=== PATIENT | male | born 1955 | race Caucasian/White ===

== ENCOUNTER 2023-09-09 12:05 | Outpatient (CLI) | payer MEDICARE, SELFPAY ==
--- NOTE | 2023-09-09 12:00 | RT.EKG_ITS ---
APPROVED REPORT Exam: Resting ECG Reason for Exam: CAD Patient Location: O HR:62 bpm ECG Measurements Heart Rate 62 AXIS MO 157 P 40 QRSd 100 QRS 9 QT 386 T 260 QTc 392 Conclusion Atrial-sensed ventricular-paced complexes...other complexes also detected No further analysis attempted due to paced rhythm I have reviewed and interpreted ECG and agree with software generated interpretation.
== END 2023-09-09 12:06 | disposition home or self-care (01) ==
LOC: DI.CARD 12:05
PROVIDERS: PCP Family Medicine; Visit Provider Internal Medicine Interventional Cardiology
DX: I25.10 Atherosclerotic heart disease of native coronary artery without angina pectoris (principal); Z95.0 Presence of cardiac pacemaker
CPT/HCPCS: 93010

== ENCOUNTER → 2023-09-09 13:51 | Outpatient (BNVA) | payer MEDICARE, SELFPAY | PROVIDERS: PCP Family Medicine; Referring Provider Family Medicine; Visit Provider Internal Medicine Interventional Cardiology | DX: I50.1 Left ventricular failure, unspecified (principal); I10 Essential (primary) hypertension; Z95.810 Presence of automatic (implantable) cardiac defibrillator; I25.10 Atherosclerotic heart disease of native coronary artery without angina pectoris | CPT/HCPCS: 93005; 99202 ==

== ENCOUNTER 2023-10-31 14:38 | Outpatient (REF) | payer MEDICARE, SELFPAY ==
--- NOTE | 2023-10-31 14:10 | SKI_PTH ---
PATIENT: Arturo Mehta LOC: JO U#:[id number] AGE/SX: 68/M ROOM: RE10/31/[address]: HENOK Alejandre : 1955 BED: DIS: 10/31/2023 SPEC #: [id number] RECD: 10/31/23 18:36 STATUS: CRISELDA REQ #: [id number] FRANKO: 10/31/23 14:[address]: Yousif Carlin DEPT: Surgical Specimen RECD BY: Nely Stephenson ENTERED: 10/31/23 18:37 SP TYPE: ADELE HUSTON DR: Mauro Berumen Tissues: 1 - SKIN BIOPSY(SHAVE/PUNCH) Procedures: SKIN LEVEL 4 Comments: [id number]
== END 2023-10-31 14:39 | disposition home or self-care (01) ==
LOC: LBN 14:38
PROVIDERS: PCP Family Medicine; Visit Provider Physician Assistant
DX: D22.9 Melanocytic nevi, unspecified (principal)
CPT/HCPCS: 88305

== ENCOUNTER 2024-02-26 21:59 | Outpatient (REF) | payer MEDICARE, SELFPAY ==
[2024-02-26 22:58] LABS: COMMENT (LAB VIEW ONLY) 166.13 mg/dL; Microalb ug/mg Crea 15.3 ug/mg Cr
== END 2024-02-26 22:00 | disposition home or self-care (01) ==
LOC: NCHCN 21:59
PROVIDERS: PCP Family Medicine; Visit Provider Family Medicine
DX: E11.9 Type 2 diabetes mellitus without complications (principal)
CPT/HCPCS: 82043; 82570

== ENCOUNTER → 2024-03-08 13:48 | Outpatient (BNVA) | payer MEDICARE, SELFPAY | PROVIDERS: PCP Family Medicine; Referring Provider Family Medicine; Visit Provider Internal Medicine Cardiovascular Disease | DX: Z95.810 Presence of automatic (implantable) cardiac defibrillator (principal); I25.10 Atherosclerotic heart disease of native coronary artery without angina pectoris | CPT/HCPCS: 99213 ==

== ENCOUNTER → 2024-03-24 09:53 | Outpatient (BNVA) | payer MEDICARE, SELFPAY | PROVIDERS: PCP Family Medicine; Referring Provider Family Medicine; Visit Provider Student in an Organized Health Care Education/Training Program | DX: Z95.810 Presence of automatic (implantable) cardiac defibrillator (principal) | CPT/HCPCS: 93284 ==

== ENCOUNTER → 2024-05-20 10:41 | Outpatient (BNVA) | payer MEDICARE, SELFPAY | PROVIDERS: PCP Family Medicine; Referring Provider Family Medicine; Visit Provider Podiatrist | DX: L60.3 Nail dystrophy (principal); B35.1 Tinea unguium; E11.43 Type 2 diabetes mellitus with diabetic autonomic (poly)neuropathy; E11.51 Type 2 diabetes mellitus with diabetic peripheral angiopathy without gangrene; L84 Corns and callosities | CPT/HCPCS: 11056; 11721; 99214 ==

== ENCOUNTER → 2024-06-02 09:50 | Outpatient (BNVA) | payer MEDICARE, SELFPAY | PROVIDERS: PCP Family Medicine; Referring Provider Family Medicine; Visit Provider Physical Therapy Assistant | DX: I73.9 Peripheral vascular disease, unspecified (principal); E11.51 Type 2 diabetes mellitus with diabetic peripheral angiopathy without gangrene | CPT/HCPCS: 93922 ==

== ENCOUNTER 2024-06-02 21:19 | Emergency (ER) | payer MEDICARE, SELFPAY ==
[2024-06-02] VITALS (10 sets, daily range): BP systolic 113–132; BP diastolic 47–73; PULSE 73–86; RESP 9–20; TEMP 36.7; O2SAT 94–96
--- NOTE | 2024-06-02 21:19 | RT.EKG_ITS ---
APPROVED REPORT Exam: Resting ECG Reason for Exam: chest pain Patient Location: E HR:80 bpm ECG Measurements Heart Rate 80 AXIS AR 157 P 60 QRSd 110 QRS 4 QT 365 T -82 QTc 422 Conclusion Atrial-sensed ventricular-paced rhythm...ventricular pacing tracks p-waves Atrial sensed ventricular paced rhythm at a rate of 80. Interventricular conduction delay. AR and Q Tc within normal limits. Concerning inferior ST segment depressions meeting modified Blake criteria for ischemia. New compared to prior dated earlier this year.
--- OUTSIDE RECORDS SUMMARY | 2024-06-02 21:29 | XMS_ITS | Encounter Summary ---
Author Organization [facility] Address [address] [place] [address] Care Team Providers Care Carbon Cleaner Name Role Phone Jesu Guerra [facility] Primary Care Provider [phone] Encounter Details Date Type Department Care Team (Late st Contact Info) Description 10/31/2023 Lab Requisition [facility] Pathology & Laboratory Medicine - [facility] [address] [place] [address] Yousif Carlin PA [address] [place] [address] [address] [place] [address] Melanocytic nevi, unspecified Social History Tobacco Use Types Packs/Day Years Used Date Smoking Tobacco: Never Assessed Sex and Gender Information Value Date Recorded Sex Assigned at Not on file Gender Identity Not on file Sexual Orientation Not on file documented as of this encounter Plan of Treatment Not on file documented as of this encounter Procedures Procedure Name Priority Date/Time Associated Diagnosis Comments SURGICAL PATHOLOGY Today 10/31/2023 14 :10 EDT Melanocytic nevi, unspecified documented in this encounter Results * SURGICAL PATHOLOGY (10/31/2023 14:10 EDT) Note to Patient The following pathology results have been interpreted by your pathologist and may be available to you before your health provider has had the opportunity to review them. Please allow time for your provider to receive these results and explore management options, if applicable. 11/04/2023 9:43 EDT [facility] Final Diagnosis A. SKIN OF CHEEK, LEFT, SHAVE BIOPSY: - Seborrheic keratosis, pigmented. 11/04/2023 9:43 EDT [facility] Attestation By the signature below, the attending physician certifies that they have 1) personally conducted a gross and/or microscopic examination of the described specimen(s), and/or personally interpreted the results of laboratory testing of the described specimen(s), and 2) personally rendered or confirmed the above diagnosis. 11/04/2023 9:43 [facility] at 0943 Microscopic Description The stratum corneum consists of a normal thin layer of basketweave orthokeratin. The epidermis is hyperplastic with elongate, thin, anastomosing rete ridges. Some of the rete are club shaped. The keratinocytes have abundant melanin pigment. The melanocytes are generally normal in number and distribution. There is prominent solar elastosis in the dermis and patchy lichenoid inflammation. 11/04/2023 9:43 T [facility] Clinical History Atypical nevus, history melanoma; clinical diagnosis code: D22.9 11/04/2023 9:43 EDT [facility] Gross Description A. Received in formalin labelled with proper patient identification (initials K, K) and L cheek is a 1.3 x 1.0 x 0.1 cm irregular shave of mottled rodriguez white to dark brown skin. The margin is inked. The specimen is trisected and entirely submitted in A1. HENOK GOLDEN(ASCP) 11/03/2023 9:00 11/04/2023 9:43 EDT [facility] Performing Lab [facility] 11/04/2023 9:43 T [facility] Scanned Images 11/04/2023 9:43 T [facility] Tissue SPECIMEN FROM SKIN / Unknown 10/31/2023 14:10 EDT 10/31/2023 23:24 EDT Yousif WHITING PATHOLOGY ORDERABL ES [facility] [address] [place] [address] documented in this encounter Visit Diagnoses Diagnosis Melanocytic nevi, unspecified documented in this encounter Care Teams Carbon Cleaner Relationship Specialty Start Date End Date Jesu Guerra, DNP [address] [place] [address] PCP - General Family Medicine - Primary Care 10/03/23 documented as of this encounter
--- OUTSIDE RECORDS SUMMARY | 2024-06-02 21:29 | XMS_ITS | Referral Summary ---
Author Organization [facility] Address [address] [place] [address] Care Team Providers Care Rim Fire Priming Operator Name Role Phone Jesu Guerra [facility] Primary Care Provider [phone] Social History Tobacco Use Types Packs/Day Years Used Date Smoking Tobacco: Never Assessed Sex and Gender Information Value Date Recorded Sex Assigned at Not on file Gender Identity Not on file Sexual Orientation Not on file Plan of Treatment Not on file Care Teams Rim Fire Priming Operator Relationship Specialty Start Date End Date Jesu Guerra, [facility] [address] [place] [address] [place] [id number] PCP - General Family Medicine - Primary Care 10/03/23
--- OUTSIDE RECORDS SUMMARY | 2024-06-02 21:29 | XMS_ITS | Clinical Summary ---
Author Organization [facility] Address [address] [place] [address] Care Team Providers Care Postulant Name Role Phone Jesu Guerra [facility] Primary Care Provider [phone] Social History Tobacco Use Types Packs/Day Years Used Date Smoking Tobacco: Never Assessed Sex and Gender Information Value Date Recorded Sex Assigned at Not on file Gender Identity Not on file Sexual Orientation Not on file Plan of Treatment Health Maintenance Due Date Last Done Comments Hepatitis C Screen 1955 RSV Immunization ( o r 60+ Years) (1 - 1-dose 60+ series) 2017 Fall Risk Screening 2022 COVID-19 Vaccine ( season) 2023 Care Teams Postulant Relationship Specialty Start Date End Date Jesu Guerra, JOHANA [facility] [place] [address] PCP - General Family Medicine - Primary Care 10/03/23
--- NOTE | 2024-06-02 21:30 | DI.RAD_ITS ---
Exam(s) XR PORTABLE CHEST AP EXAM: XR PORTABLE CHEST AP CLINICAL HISTORY: chest pain TECHNIQUE: 2D digital imaging was performed. COMPARISON: No exams were available for comparison FINDINGS: LUNGS: Clear. No pleural abnormality seen. HEART: Normal size. Pacemaker. AORTA: Normal diameter. BONES: Unremarkable for age. Soft tissues: Unremarkable. IMPRESSION: No acute findings. DATA REPOSITORY: RADIATION DOSE DELIVERED:
[2024-06-02 21:39] LABS: Abs Immature Grans 0.06 10^3/uL (0.0-0.06); Absolute Basophil Count 0.11 10^3/uL (0.0-0.2); Absolute Eosinophil Count 0.23 10^3/uL (0.0-0.7); Absolute Lymphocyte Count 2.74 10^3/uL (1.2-3.4); Absolute Neutrophil Count 5.97 10^3/uL (1.2-6.7); Basophils % 1.1 %; Eosinophils % 2.3 %; HGB 15.2 g/dL (13.5-17.5); Immature Grans % 0.6 %; Lymphocytes % 27.6 %; MCH 29.6 pg (27.0-33.0); MCHC 31.7 % (32.0-36.0); MCV 94 fL (80-95); MPV 9.3 fL (8.0-11.0); Monocytes % 8.1 %; Neutrophils % 60.3 %; Platelet Count 221 10^3/uL (130-400); RBC 5.13 10^6/uL (4.36-5.78); RDW-SD 48.9 fL; WBC 9.91 10^3/uL (4.4-10.8)
[2024-06-02] MEDS: MORPHine 10 MG/ML VIAL 4 MG IVP (21:48)
[2024-06-02] MEDS: Heparin in 0.45% NaCl 25,000 UNIT/250 ML BAG 10 UNIT IVINF (21:49)
[2024-06-02] MEDS: Clopidogrel 300 MG TAB PO (21:51)
[2024-06-02 21:57] LABS: ALT 15 U/L (16-63); AST 19 U/L (15-37); Albumin 3.5 g/dL (3.4-5.0); Alkaline Phosphatase 84 U/L (46-116); Anion Gap 6.2 mmol/L (3-11); BUN 23 mg/dL (7-18); Bilirubin, Total 0.45 mg/dL (0.2-1.0); CO2 29.8 mmol/L (21.0-32.0); CREATININE 1.3 mg/dL (0.70-1.30); Calcium 9.2 mg/dL (8.5-10.1); Chloride 105 mmol/L (98-107); Estimated GFR 60.21 (mL/min/1.73m2); Glucose 110 mg/dL (74-106); Magnesium 1.9 mg/dL (1.8-2.4); Potassium 4.2 mmol/L (3.5-5.1); Sodium 141 mmol/L (136-145); Total Protein 7.1 g/dL (6.4-8.2)
[2024-06-02] MEDS: Metoprolol 25 MG TAB PO (21:58)
[2024-06-02] MEDS: Tenecteplase 50 MG KIT IVP (21:59)
[2024-06-02 22:00] LABS: Troponin I 1195 ng/L (<or=76)
--- NOTE | 2024-06-02 22:06 | W.ED.GENAD ---
Discharge Plan Disposition Patient Disposition: Transfer-Acute Inpatient Care Specific Acute Inpt Facility: [facility] Condition: Stable Discharge Details Clinical Impression: ST elevation myocardial infarction (STEMI) Primary Care Provider: Mauro Berumen ED Provider: Rebel Muñiz Home Meds and New Rx's Prescriptions: No Action ketoconazole 2 % cream 1 applic topical DAILY Qty: 120 6RF Rx Instructions: Apply to toenails once daily aspirin 81 mg tablet 81 mg PO DAILY atorvastatin 80 mg tablet 80 mg PO DAILY carvedilol 12.5 mg tablet 12.5 mg PO BID Rx Instructions: must administer with a meal/food cholecalciferol (vitamin D3) 50 mcg (2,000 unit) capsule 50 mcg PO DAILY clopidogrel 75 mg tablet 75 mg PO DAILY Entresto 49-51 mg tablet 1 tab PO BID escitalopram oxalate 20 mg tablet 20 mg PO DAILY Jardiance 25 mg tablet 25 mg PO DAILY metformin 1,000 mg tablet 1,000 mg PO BID insulin aspart U-100 [Novolog FlexPen U-100 Insulin] 100 unit/mL (3 mL) insulin pen 20 unit subcut TID insulin degludec [Tresiba FlexTouch U-100] 100 unit/mL (3 mL) insulin pen 50 unit subcut DAILY diphenhydramine HCl 25 mg capsule 25 mg PO QHS PRN HPI General Date/Time Provider Initiated Documentation: 06/02/24 21:32. HPI Narrative: 69 year-old male presents to ED today by EMS with a chief complaint of chest pain severe at rest, felt like somebody placed a 2 pound weight on his chest with significant cardiac history of 3 myocardial infarctions last 1 being 5 years ago with stents with onset about 45 minutes prior to triage around 2054 best estimate. Quality described as severe heavy chest pain at onset, patient is rather stoic and he denies sweating or near syncope but appears ashen, denies shortness of breath on arrival, no radiation to nausea or vomiting, recent illness or coughing, hemoptysis, abdominal pain, numbness or tingling or visual changes. Severity is described as severe at onset, currently 3/10. Palliating factors include 324 ASA and 1 sublingual nitro given by EMS en route. Provoking factors include nothing specific, states he was watching TV at onset. Patient not anticoagulated. Related Data Home Medications ?Medication ?Instructions ?Recorded ?Confirmed aspirin 81 mg tablet 81 mg PO DAILY 09/05/23 06/02/24 atorvastatin 80 mg tablet 80 mg PO DAILY 09/05/23 06/02/24 carvedilol 12.5 mg tablet 12.5 mg PO BID 09/05/23 06/02/24 cholecalciferol (vitamin D3) 50 50 mcg PO DAILY 09/05/23 06/02/24 mcg (2,000 unit) capsule clopidogrel 75 mg tablet 75 mg PO DAILY 09/05/23 06/02/24 empagliflozin 25 mg tablet 25 mg PO DAILY 09/05/23 06/02/24 (Jardiance) escitalopram oxalate 20 mg tablet 20 mg PO DAILY 09/05/23 06/02/24 insulin aspart U-100 100 unit/mL 20 unit subcut TID 09/05/23 06/02/24 (3 mL) subcutaneous pen (Novolog FlexPen U-100 Insulin aspart) insulin degludec 100 unit/mL (3 50 unit subcut DAILY 09/05/23 06/02/24 mL) subcutaneous pen (Tresiba FlexTouch U-100 insulin) metformin 1,000 mg tablet 1,000 mg PO BID 09/05/23 06/02/24 sacubitril 49 mg-valsartan 51 mg 1 tab PO BID 09/05/23 06/02/24 tablet (Entresto) diphenhydramine HCl 25 mg capsule 25 mg PO QHS PRN 09/09/23 06/02/24 ketoconazole 2 % topical cream 1 applic topical DAILY #120 grams 05/20/24 06/02/24 Previous Rx's ?Medication ?Instructions ?Recorded ketoconazole 2 % topical cream 1 applic topical DAILY #120 grams 05/20/24 Allergies Allergy/AdvReac Type Severity Reaction Status Date / Time No Known Allergies Allergy Verified 06/02/24 21:27 General Stated Complaint: Chest Pain HECTOR: 2 Review of Systems All systems reviewed & are unremarkable except as noted in HPI and below Exam Narrative Exam Narrative: GENERAL APPEARANCE: Well-nourished, non-toxic, awake and alert, atraumatic, moderate acute distress, grimacing. SKIN: Warm, ashen, dry, intact, without rashes/lesions/ulcerations. HEAD: Normocephalic, atraumatic, normal hair distribution for gender/age. EYES: Normal conjunctiva, no exudates on lids/lashes. ENT: Nares patent, no circumoral cyanosis, no facial swelling NECK: Supple, trachea midline, painless cervical ROM. LUNGS/CHEST: Lungs CTA bilaterally- no rales at bases, non-labored respirations, normal A/P diameter, symmetrical expansion, no chest wall deformity, no tenderness, no pleuritic chest pain, prior surgical scars present. HEART (CV/PV): Regular rate and rhythm without murmur, no peripheral edema, mild JVD. ABDOMEN: Soft, non-distended, no guarding, no tenderness, no pulsatile masses. MSK: Normal ROM, no swelling/deformity to bilateral UEs or LEs, moving all extremities without weakness, no cyanosis, spine midline without tenderness, normal curvature. NEURO: Mental Status AAOx4 - alert to person, place, time, events No facial droop, no forehead involvement. Motor: No focal weakness - strength 5/5 in bilateral UEs and LEs, proximal and distal, symmetric. Sensory: sensation intact to light touch globally. Gait normal: patient ambulated without ataxia into ED room. PSYCH: euthymic, cooperative, pleasant, appropriate speech Course Vital Signs Vital signs: Vital Signs Temperature 36.7 C 06/02/24 21:21 Pulse 82 06/02/24 21:21 Respiratory Rate 18 06/02/24 21:21 Blood Pressure 132/73 06/02/24 21:21 Pulse Oximetry 96 06/02/24 21:21 Temperature 36.7 C 06/02/24 21:21 Pulse 81 06/02/24 22:02 Pulse 82 06/02/24 22:00 Respiratory Rate 20 06/02/24 22:00 Respiratory Effort Normal, Non-Labored 06/02/24 21:31 Respiratory Depth Normal 06/02/24 21:31 Respiratory Pattern Normal 06/02/24 21:31 Blood Pressure 129/71 06/02/24 22:02 Blood Pressure Mean 84 06/02/24 22:02 Pulse Oximetry 94 06/02/24 22:00 Pain Level 3 06/02/24 21:31 Lab/Test Results Lab/Test Results: Laboratory Tests Range/Units 06/02/24 21:30 WBC (4.4-10.8) 10^3/uL 9.91 RBC (4.36-5.78) 10^6/uL 5.13 Hgb (13.5-17.5) g/dL 15.2 Hct (40.0-50.0) % 48.0 MCV (80-95) fL 94 MCH (27.0-33.0) pg 29.6 MCHC (32.0-36.0) % 31.7 L RDW (11.8-14.1) % 14.0 Plt Count (130-400) 10^3/uL 221 MPV (8.0-11.0) fL 9.3 Immature Gran % % 0.6 Neutrophils % % 60.3 Lymphocytes % % 27.6 Monocytes % % 8.1 Eosinophils % % 2.3 Basophils % % 1.1 Nucleated RBC % (0.0-0.3) % 0.0 Absolute Neutrophils (1.2-6.7) 10^3/uL 5.97 Absolute Lymphocytes (1.2-3.4) 10^3/uL 2.74 Absolute Monocytes (0.1-0.8) 10^3/uL 0.80 Absolute Eosinophils (0.0-0.7) 10^3/uL 0.23 Absolute Basophils (0.0-0.2) 10^3/uL 0.11 Sodium (136-145) mmol/L 141 Potassium (3.5-5.1) mmol/L 4.2 Chloride (98-107) mmol/L 105 Carbon Dioxide (21.0-32.0) mmol/L 29.8 Anion Gap (3-11) mmol/L 6.2 BUN (7-18) mg/dL 23 H Creatinine (0.70-1.30) mg/dL 1.3 Est GFR (CKD-EPI 2020) (mL/min/1.73m2) 60.21 Glucose (74-106) mg/dL 110 H Calcium (8.5-10.1) mg/dL 9.2 Magnesium (1.8-2.4) mg/dL 1.9 Total Bilirubin (0.2-1.0) mg/dL 0.45 AST (15-37) U/L 19 ALT (16-63) U/L 15 L Alkaline Phosphatase (46-116) U/L 84 Troponin I (<or=76) ng/L 1195 H* Total Protein (6.4-8.2) g/dL 7.1 Albumin (3.4-5.0) g/dL 3.5 Medical Decision Making This dictation utilizes [id number] dictation software and may contain unedited grammatical errors. 69 year-old male presents to ED today by EMS with a chief complaint of chest pain severe at rest, felt like somebody placed a 2 pound weight on his chest with significant cardiac history of 3 myocardial infarctions last 1 being 5 years ago with stents with onset about 45 minutes prior to triage around 2054 best estimate. Quality described as severe heavy chest pain at onset, patient is rather stoic and he denies sweating or near syncope but appears ashen, denies shortness of breath on arrival, no radiation to nausea or vomiting, recent illness or coughing, hemoptysis, abdominal pain, numbness or tingling or visual changes. Severity is described as severe at onset, currently 3/10. Palliating factors include 324 ASA and 1 sublingual nitro given by EMS en route. Provoking factors include nothing specific, states he was watching TV at onset. Patients' medical history: Multiple myocardial infarctions, has pacemaker, chronic left-sided heart failure, type 2 diabetes mellitus, history of melanoma. Family and social history: History of smoking. Pertinent exam findings / vital signs include lungs CTA, benign abdomen, no pulsatile masses in the abdomen, neuro intact. Differential / pathologies of concern include acute coronary syndrome, STEMI, less likely aortic dissection. Diagnostic studies of: -CBC, CMP, troponin, magnesium, EKG, chest x-ray -CBC is benign -CMP has no actionable abnormality -Magnesium within normal limits -Initial troponin 1195. -EKG has evidence of modified Sgarbossa criteria for STEMI and lead II and aVF as well as V3, rate of 80, diffuse other elevated J-point's with some lateral ST depression as well -Chest x-ray shows no pulmonary edema by me my read, does show some cardiomegaly Interventions of: -Initiated STEMI protocol upon immediate review of EKG with EM attending Dr. Elliott England, patient was started on heparin, I consulted with [facility] cardiology who accepted the patient for emergent transfer for cath excepting Dr. Fofana around 2200 hrs, they recommended starting TNK as well as 25 mg of metoprolol, I did provide the patient 4 mg of IV morphine. ED Course/Assessment/Plan: 69-year-old male presents with likely acute coronary syndrome with EKG changes consistent with a modified STEMI criteria, initial troponin 1200, he was started on heparin and TNK, had received aspirin by EMS and 1 dose of nitro prior to arrival, patient has history of 3 myocardial infarctions most recently 5 years ago, states he has a pacemaker as well as diabetes. He had no contraindications to TNK including no recent history of stroke surgery, known intracranial mass or aneurysm of aorta. Patient was emergently transferred by [facility] at [address]. Disposition of [address] Elevation Myocardial Infarction (STEMI). Patient verbalized understanding of the plan and return to ED criteria and engaged in shared decision making. Medical Records Medical records reviewed: Yes I reviewed the patient's medical records. Imaging Data Radiologic Study: Attestation: I personally reviewed and interpreted this imaging study as follows: Imaging: X-Ray My impression: No pulmonary edema by my read Radiologist's impression: Transferred prior to radiology read. Exam: XR Chest Exam date and time: 06/02/2024 9:55 PM Age: 69 years old Clinical indication: Other: Chest pain TECHNIQUE: Imaging protocol: Radiologic exam of the chest. Views: 1 view. COMPARISON: No relevant prior studies available. FINDINGS: Tubes, catheters and devices: Biventricular cardiac pacemaker without gross hardware complication. Lungs: Normal pulmonary expansion. Pulmonary vasculature grossly normal. No gross pulmonary infiltrates or edema pattern. Pleural spaces: No pleural effusion. No pneumothorax. Heart/Mediastinum: Heart size normal. No tracheal/mediastinal shift. Bones/joints: No acute osseous abnormalities are identified. IMPRESSION: No acute thoracic process. Dictated and Authenticated by: Elliott Hardy MD. Lab Data Lab results reviewed: Yes I reviewed the patient's lab results. Labs: Laboratory Tests Range/Units 06/02/24 21:30 WBC (4.4-10.8) 10^3/uL 9.91 RBC (4.36-5.78) 10^6/uL 5.13 Hgb (13.5-17.5) g/dL 15.2 Hct (40.0-50.0) % 48.0 MCV (80-95) fL 94 MCH (27.0-33.0) pg 29.6 MCHC (32.0-36.0) % 31.7 L RDW (11.8-14.1) % 14.0 Plt Count (130-400) 10^3/uL 221 MPV (8.0-11.0) fL 9.3 Immature Gran % % 0.6 Neutrophils % % 60.3 Lymphocytes % % 27.6 Monocytes % % 8.1 Eosinophils % % 2.3 Basophils % % 1.1 Nucleated RBC % (0.0-0.3) % 0.0 Absolute Neutrophils (1.2-6.7) 10^3/uL 5.97 Absolute Lymphocytes (1.2-3.4) 10^3/uL 2.74 Absolute Monocytes (0.1-0.8) 10^3/uL 0.80 Absolute Eosinophils (0.0-0.7) 10^3/uL 0.23 Absolute Basophils (0.0-0.2) 10^3/uL 0.11 Sodium (136-145) mmol/L 141 Potassium (3.5-5.1) mmol/L 4.2 Chloride (98-107) mmol/L 105 Carbon Dioxide (21.0-32.0) mmol/L 29.8 Anion Gap (3-11) mmol/L 6.2 BUN (7-18) mg/dL 23 H Creatinine (0.70-1.30) mg/dL 1.3 Est GFR (CKD-EPI 2020) (mL/min/1.73m2) 60.21 Glucose (74-106) mg/dL 110 H Calcium (8.5-10.1) mg/dL 9.2 Magnesium (1.8-2.4) mg/dL 1.9 Total Bilirubin (0.2-1.0) mg/dL 0.45 AST (15-37) U/L 19 ALT (16-63) U/L 15 L Alkaline Phosphatase (46-116) U/L 84 Troponin I (<or=76) ng/L 1195 H* Total Protein (6.4-8.2) g/dL 7.1 Albumin (3.4-5.0) g/dL 3.5 Quality:SDOH Health Related Social Needs: No Data to Display PFSH All Active Problems (Updated 06/02/24 @ 22:25 by HENOK Randall) ST elevation myocardial infarction (STEMI) (Acute) Diabetes mellitus with peripheral angiopathy without gangrene (Acute) Diabetes mellitus with autonomic neuropathy (Acute) PAD (peripheral artery disease) (Acute) Onychomycosis (Acute) Skin-picking disorder (Acute) Atypical nevus (Acute) History of melanoma (Acute) ICD (implantable cardioverter-defibrillator), biventricular, in situ (Acute) 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 (Acute) Medical History Hx of cardiac pacemaker Onychomycosis Chronic left-sided heart failure Diabetic neuropathy Type 2 diabetes mellitus Family History Mother Diabetes Cancer Father Heart disease Hypertension Social History Smoking/Tobacco Use Status: Former Tobacco Use Quit Date: 03/14/23 Smoking risk assessment performed?: Yes Alcohol Intake: never Housing: house Do you feel safe at home: Yes Do you feel safe in your relationship?: Yes
--- NOTE | 2024-06-02 22:28 | DI.VRAD_ITS ---
PROCEDURE INFORMATION: Exam: XR Chest Exam date and time: 06/02/2024 9:55 PM Age: 69 years old Clinical indication: Other: Chest pain TECHNIQUE: Imaging protocol: Radiologic exam of the chest. Views: 1 view. COMPARISON: No relevant prior studies available. FINDINGS: Tubes, catheters and devices: Biventricular cardiac pacemaker without gross hardware complication. Lungs: Normal pulmonary expansion. Pulmonary vasculature grossly normal. No gross pulmonary infiltrates or edema pattern. Pleural spaces: No pleural effusion. No pneumothorax. Heart/Mediastinum: Heart size normal. No tracheal/mediastinal shift. Bones/joints: No acute osseous abnormalities are identified. IMPRESSION: No acute thoracic process. Dictated and Authenticated by: Elliott Hardy MD. Ordering:SOHA Luque MD
[2024-06-02 22:30] LABS: INR 1.1 (0.9-1.1); PTT Activated 27.3 sec (23.6-32.8); Prothrombin Time 11.1 sec (9.1-11.1)
== END 2024-06-02 22:17 | disposition short-term general hospital (02) ==
PROVIDERS: Emergency Provider Physician Assistant; PCP Family Medicine
DX: I21.3 ST elevation (STEMI) myocardial infarction of unspecified site (principal); I10 Essential (primary) hypertension; I25.2 Old myocardial infarction; E11.40 Type 2 diabetes mellitus with diabetic neuropathy, unspecified; Z79.82 Long term (current) use of aspirin; Z79.01 Long term (current) use of anticoagulants; Z79.4 Long term (current) use of insulin; Z79.84 Long term (current) use of oral hypoglycemic drugs; Z95.810 Presence of automatic (implantable) cardiac defibrillator; Z87.891 Personal history of nicotine dependence
CPT/HCPCS: 80053; 93005; 96374; 96375; 99285; 71045; 83735; 84484; 85025; 85610; 85730; 93010; J1644; J2270; J3101

== ENCOUNTER 2024-07-27 07:54 | Outpatient (CLI) | payer MEDICARE, SELFPAY ==
--- NOTE | 2024-07-27 10:30 | RT.EKG_ITS ---
APPROVED REPORT Exam: Resting ECG Reason for Exam: CAD Patient Location: O HR:82 bpm ECG Measurements Heart Rate 82 AXIS FL 131 P 72 QRSd 102 QRS 40 QT 369 T 181 QTc 431 Conclusion Atrial-sensed ventricular-paced complexes...other complexes also detected No further analysis attempted due to paced rhythm
== END 2024-07-27 07:55 | disposition home or self-care (01) ==
PROVIDERS: PCP Family Medicine; Visit Provider Internal Medicine Cardiovascular Disease
DX: I25.10 Atherosclerotic heart disease of native coronary artery without angina pectoris
CPT/HCPCS: 93010

== ENCOUNTER → 2024-07-27 09:55 | Outpatient (BNVA) | payer MEDICARE, SELFPAY | PROVIDERS: PCP Family Medicine; Referring Provider Family Medicine; Visit Provider Internal Medicine Cardiovascular Disease | DX: Z95.810 Presence of automatic (implantable) cardiac defibrillator (principal); I50.1 Left ventricular failure, unspecified; I25.2 Old myocardial infarction | CPT/HCPCS: 99213 ==

== ENCOUNTER 2024-08-04 19:27 | Emergency (ER) | payer MEDICARE, SELFPAY ==
[2024-08-04] VITALS (20 sets, daily range): BP systolic 100–164; BP diastolic 38–70; PULSE 78–85; RESP 13–25; O2SAT 94–99
--- NOTE | 2024-08-04 19:15 | RT.EKG_ITS ---
APPROVED REPORT Exam: Resting ECG Reason for Exam: hypotension Patient Location: E HR:83 bpm ECG Measurements Heart Rate 83 AXIS OH 207 P 5 QRSd 148 QRS -31 QT 425 T 162 QTc 501 Conclusion Atrial-ventricular dual-paced no stemi
[2024-08-04 20:01] LABS: Abs Immature Grans 0.04 10^3/uL (0.0-0.06); Absolute Basophil Count 0.07 10^3/uL (0.0-0.2); Absolute Eosinophil Count 0.49 10^3/uL (0.0-0.7); Absolute Lymphocyte Count 2.27 10^3/uL (1.2-3.4); Absolute Monocyte Count 0.95 10^3/uL (0.1-0.8); Absolute Neutrophil Count 5.36 10^3/uL (1.2-6.7); Basophils % 0.8 %; Eosinophils % 5.3 %; HCT 38.8 % (40.0-50.0); HGB 12.3 g/dL (13.5-17.5); Immature Grans % 0.4 %; Lymphocytes % 24.7 %; MCH 29.8 pg (27.0-33.0); MCHC 31.7 % (32.0-36.0); MCV 94 fL (80-95); MPV 9.3 fL (8.0-11.0); Monocytes % 10.3 %; Neutrophils % 58.5 %; Platelet Count 251 10^3/uL (130-400); RBC 4.13 10^6/uL (4.36-5.78); RDW 13.8 % (11.8-14.1); RDW-SD 47.5 fL; WBC 9.18 10^3/uL (4.4-10.8)
[2024-08-04 20:16] LABS: ALT 7 U/L (16-63); AST 11 U/L (15-37); Albumin 3.3 g/dL (3.4-5.0); Alkaline Phosphatase 95 U/L (46-116); Anion Gap 5.9 mmol/L (3-11); BUN 23 mg/dL (7-18); Bilirubin, Total 0.45 mg/dL (0.2-1.0); CO2 30.1 mmol/L (21.0-32.0); CREATININE 1.6 mg/dL (0.70-1.30); Calcium 8.7 mg/dL (8.5-10.1); Chloride 104 mmol/L (98-107); Estimated GFR 46.93 (mL/min/1.73m2); Glucose 134 mg/dL (74-106); Potassium 4.4 mmol/L (3.5-5.1); Sodium 140 mmol/L (136-145); Total Protein 7.1 g/dL (6.4-8.2)
--- NOTE | 2024-08-04 20:22 | ED.GENADUL_ITS ---
Discharge Plan Disposition Patient Disposition: Home Discharge Details Clinical Impression: Hypoglycemia Primary Care Provider: Mauro Berumen ED Provider: Nawaf Gaytan Home Meds and New Rx's Prescriptions: No Action furosemide [Lasix] 20 mg tablet 20 mg PO DAILY insulin degludec [Tresiba FlexTouch U-100] 100 unit/mL (3 mL) insulin pen 50 unit subcut DAILY ketoconazole 2 % cream 1 applic topical DAILY Qty: 120 6RF Rx Instructions: Apply to toenails once daily aspirin 81 mg tablet 81 mg PO DAILY atorvastatin 80 mg tablet 80 mg PO DAILY carvedilol 12.5 mg tablet 12.5 mg PO BID Rx Instructions: must administer with a meal/food cholecalciferol (vitamin D3) 50 mcg (2,000 unit) capsule 50 mcg PO DAILY clopidogrel 75 mg tablet 75 mg PO DAILY Entresto 49-51 mg tablet 1 tab PO BID escitalopram oxalate 20 mg tablet 20 mg PO DAILY Jardiance 25 mg tablet 25 mg PO DAILY metformin 1,000 mg tablet 1,000 mg PO BID insulin aspart U-100 [Novolog FlexPen U-100 Insulin] 100 unit/mL (3 mL) insulin pen 20 unit subcut TID diphenhydramine HCl 25 mg capsule 25 mg PO QHS PRN Discharge Instructions Instructions: Low Blood Sugar, Adult ED Additional Instructions: Please monitor your blood sugar closely using your continuous glucose monitor and check your blood sugar before giving yourself medication. Please contact your PCPs office tomorrow to discuss your recent blood sugar readings and any change in medications they might recommend. Discharge Data Discharge Date/Time-TO BE ENTERED AT DEPARTURE: 08/04/24 21:28 HPI General Date/Time Provider Initiated Documentation: 08/04/24 19:33 . Limitations to Documentation: no limitations . Information obtained by: patient and EMS . HPI Narrative: 69-year-old gentleman with past medical history of hypertension, diabetes, CAD with recent cardiac bypass surgery presents for evaluation of hypoglycemia. The patient reports that he has a continuous glucose monitor and that typically his blood sugar is well-controlled but he has been noticing more frequent outliers since his bypass surgery. He reports that he took his insulin this morning but has not taken any additional diabetes medication throughout the day. He ate lunch. He reports this evening he started to feel like his blood sugar was going low and he had a sugar of 36. EMS reports that he was minimally responsive on their arrival. He had maple syrup and oranges. As well as 200 cc of D10 by EMS his blood sugar came up to 187. Related Data Home Medications ?Medication ?Instructions ?Recorded ?Confirmed aspirin 81 mg tablet 81 mg PO DAILY 09/05/23 08/04/24 atorvastatin 80 mg tablet 80 mg PO DAILY 09/05/23 08/04/24 carvedilol 12.5 mg tablet 12.5 mg PO BID 09/05/23 08/04/24 cholecalciferol (vitamin D3) 50 50 mcg PO DAILY 09/05/23 08/04/24 mcg (2,000 unit) capsule clopidogrel 75 mg tablet 75 mg PO DAILY 09/05/23 08/04/24 empagliflozin 25 mg tablet 25 mg PO DAILY 09/05/23 08/04/24 (Jardiance) escitalopram oxalate 20 mg tablet 20 mg PO DAILY 09/05/23 08/04/24 insulin aspart U-100 100 unit/mL 20 unit subcut TID 09/05/23 08/04/24 (3 mL) subcutaneous pen (Novolog FlexPen U-100 Insulin aspart) metformin 1,000 mg tablet 1,000 mg PO BID 09/05/23 08/04/24 sacubitril 49 mg-valsartan 51 mg 1 tab PO BID 09/05/23 08/04/24 tablet (Entresto) diphenhydramine HCl 25 mg capsule 25 mg PO QHS PRN 09/09/23 08/04/24 ketoconazole 2 % topical cream 1 applic topical DAILY #120 grams 05/20/24 08/04/24 furosemide 20 mg tablet (Lasix) 20 mg PO DAILY 07/26/24 08/04/24 insulin degludec 100 unit/mL (3 50 unit subcut DAILY 07/27/24 08/04/24 mL) subcutaneous pen (Tresiba FlexTouch U-100 insulin) Previous Rx's ?Medication ?Instructions ?Recorded ketoconazole 2 % topical cream 1 applic topical DAILY #120 grams 05/20/24 Allergies Allergy/AdvReac Type Severity Reaction Status Date / Time No Known Allergies Allergy Verified 07/27/24 10:18 General Stated Complaint: Diabetes HECTOR: 3 Exam Narrative Exam Narrative: Review of Systems: All systems reviewed & are unremarkable except as noted in HPI and below Well-developed, no acute distress NCAT PERRL, normal conjunctiva RRR no murmur, midline sternotomy scar with mild tenderness Unlabored respiratory effort clear bilaterally no crackles Nondistended abdomen Extremities w/o deformity, no cyanosis, no edema No rashes or lesions. no focal neurologic deficits Appropriate mood and affect Course Vital Signs Vital signs: Vital Signs Pulse 79 08/04/24 19:29 Respiratory Rate 16 08/04/24 19:29 Blood Pressure 113/41 L 08/04/24 19:29 Pulse 79 08/04/24 20:01 Pulse 80 08/04/24 20:10 Respiratory Rate 21 08/04/24 20:10 Blood Pressure 100/50 L 08/04/24 20:01 Blood Pressure Mean 61 08/04/24 20:01 Blood Pressure Position Sitting 08/04/24 19:29 Pulse Oximetry 96 08/04/24 20:10 Oxygen Delivery Method Room Air 08/04/24 19:29 Oxygen Flow Rate 0 08/04/24 19:29 Pain Level 0 08/04/24 19:29 Lab/Test Results Lab/Test Results: Laboratory Tests Range/Units 08/04/24 19:35 WBC (4.4-10.8) 10^3/uL 9.18 RBC (4.36-5.78) 10^6/uL 4.13 L Hgb (13.5-17.5) g/dL 12.3 L Hct (40.0-50.0) % 38.8 L MCV (80-95) fL 94 MCH (27.0-33.0) pg 29.8 MCHC (32.0-36.0) % 31.7 L RDW (11.8-14.1) % 13.8 Plt Count (130-400) 10^3/uL 251 MPV (8.0-11.0) fL 9.3 Immature Gran % % 0.4 Neutrophils % % 58.5 Lymphocytes % % 24.7 Monocytes % % 10.3 Eosinophils % % 5.3 Basophils % % 0.8 Nucleated RBC % (0.0-0.3) % 0.0 Absolute Neutrophils (1.2-6.7) 10^3/uL 5.36 Absolute Lymphocytes (1.2-3.4) 10^3/uL 2.27 Absolute Monocytes (0.1-0.8) 10^3/uL 0.95 H Absolute Eosinophils (0.0-0.7) 10^3/uL 0.49 Absolute Basophils (0.0-0.2) 10^3/uL 0.07 Sodium (136-145) mmol/L 140 Potassium (3.5-5.1) mmol/L 4.4 Chloride (98-107) mmol/L 104 Carbon Dioxide (21.0-32.0) mmol/L 30.1 Anion Gap (3-11) mmol/L 5.9 BUN (7-18) mg/dL 23 H Creatinine (0.70-1.30) mg/dL 1.6 H Est GFR (CKD-EPI 2020) (mL/min/1.73m2) 46.93 Glucose (74-106) mg/dL 134 H Calcium (8.5-10.1) mg/dL 8.7 Total Bilirubin (0.2-1.0) mg/dL 0.45 AST (15-37) U/L 11 L ALT (16-63) U/L 7 L Alkaline Phosphatase (46-116) U/L 95 Total Protein (6.4-8.2) g/dL 7.1 Albumin (3.4-5.0) g/dL 3.3 L Medical Decision Making Emergent evaluation of hypoglycemia. Initial differential includes medication side effect, sepsis, poor oral intake. The patient is on oral Jardiance as well as insulin injections. He has not had insulin since this morning. Blood sugar responded to oral medications and IV D10 that was given by EMS. Currently blood sugar is 140. Will continue to closely monitor will evaluate for electrolyte derangement or renal insufficiency. Lab work reviewed no leukocytosis or anemia. Creatinine 1.6, only slightly above the patient's most recent lab values. Otherwise no electrolyte derangement. Patient had repeated Accu-Cheks and were all in normal limits. Patient is on the Jardiance as well as insulin. He has a CGM. I recommend evaluation of his glucose prior to self administration of the medicine. I recommended that he follow-up with his primary care doctor tomorrow to discuss the findings and make any adjustments in his medication. Return precautions adv ised. Quality:SDOH Health Related Social Needs: No Data to Display PFSH All Active Problems (Updated 08/04/24 @ 21:14 by Nawaf Gaytan MD) Hypoglycemia (Acute) Diabetes mellitus with peripheral angiopathy without gangrene (Acute) Diabetes mellitus with autonomic neuropathy (Acute) PAD (peripheral artery disease) (Acute) Onychomycosis (Acute) Skin-picking disorder (Acute) Atypical nevus (Acute) History of melanoma (Acute) ICD (implantable cardioverter-defibrillator), biventricular, in situ (Acute) medtronic ICD for ANALYTICS ARCHITECT. 06/16/2019 in [place]. 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 (Acute) Medical History ST elevation myocardial infarction (STEMI) 06/02/24MI xfered to [facility] from [facility], [place] Hx of cardiac pacemaker Chronic left-sided heart failure Diabetic neuropathy Type 2 diabetes mellitus Surgical History Hx of CABG 07/26/24 CABG x3 06/14/[address] [facility] with MARIALUISA exploration/clipping and removal of mediastinal mass, [place] Family History Mother Diabetes Cancer Father Heart disease Hypertension Social History Smoking/Tobacco Use Status: Former Tobacco Use Quit Date: 04/04/24 Smoking risk assessment performed?: Yes Alcohol Intake: never Drug use: Occasionally Substance use type: marijuana Housing: house Do you feel safe at home: Yes Do you feel safe in your relationship?: Yes
--- OUTSIDE RECORDS SUMMARY | 2024-08-04 20:28 | XMS_ITS | Encounter Summary ---
Author Organization [facility] Address [facility] [place] [address] Care Team Providers Care Operating Systems Specialist Name Role Phone Mauro Berumen MD Primary Care Provider [phone] Encounter Details Date Type Department Care Team (Late st Contact Info) Description 07/20/2024 Notes Only Cardiology at [address] [place] [address] Esha Jones RN Social History Tobacco Use Types Packs/Day Years Used Date Smoking Tobacco: Every Day Cigarettes Smokeless Tobacco: Never [facility] Utilities Answer Date Recorded In the past 12 months has th e electric, gas, oil, or water company threatened to shut off services in your home? No 06/03/2024 Hunger Vital Sign Answer Date Recorded Within the past 12 months, y ou worried that your food would run out before you got the money to buy more. Never true 06/03/20 24 Within the past 12 months, t he food you bought just didn't last and you didn't have money to get more. Never true 06/03/2024 PRAPARE - Transportation Answer Date Re corded In the past 12 months, has l ack of transportation kept you from medical appointments or from getting medications? No 05/06 In the past 12 months, has l ack of transportation kept you from meetings, work, or from getting things needed for daily living? No 06/03/2024 Housing Stability Vital Sign Answer Homero e Recorded In the last 12 months, was t here a time when you were not able to pay the mortgage or rent on time? No 06/03/2024 In the past 12 months, how m any times have you moved where you were living? 1 06/03/2024 At any time in the past 12 m [facility], were you homeless or living in a senior care (including now)? No 06/03/2024 DH IPV Inpatient Questions Answer Date Recorded Does Anyone Try to Keep You From Having Contact with Others or Doing Things Outside Your Home? no 06/03/2024 Feels Threatened by Someone no 05/06 Feels Unsafe at Home or Work/School no 06/03/2024 Physical Signs of Abuse Present no 06/03/2024 Sex and Gender Information Value Date Recorded Sex Assigned at Not on file Gender Identity Not on file Sexual Orientation Not on file documented as of this encounter Last Filed Vital Signs Vital Sign Reading Time Taken Comments Blood Pressure 116/58 07/20/2024 4:30 PM EST MAP 76 Pulse 79 07/20/2024 4:30 PM EST Temperature 36 ??C (96.8 ??F) 07/20/2024 4:30 PM EST Respiratory Rate 16 07/20/2024 4:30 PM EST Oxygen Saturation 94% 07/20/2024 4:30 PM EST RA Inhaled Oxygen Concentration - - Weight - - Height - - Body Mass Index - - documented in this encounter Progress Notes * Esha Jones RN - 07/20/2024 5:22 PM EST This RN went to assist patient after overhearing flow staff mention a Code White being called. Patient was brought into clinic room 8 in wheelchair from waiting room, for suspicion of low BGL. Capillary BGL was measured to be 40. Nurse Research Quality Assurance Analyst Chelsi administered chewable glucose tablets while this nurse obtained vitals. Patient was confused, diaphoretic, and drowsy appearing with heavy eyelids. Slow to respond to questions, and was disoriented to place, situation and time. He was also given a few cranberry juices with added sugar, while the rapid response nurses were rechecking BGL and assessing the patient. Patient was given cookies and crackers once his BGL surpassed 100. Once he was mentating properly, stating that he felt well, and his BGL was 126, he left the clinic via wheelchair with his sister in law. He was given his belongings and extra snacks for the ride home, and was educated on prevention of and preparedness for future hypoglycemic episodes. He has a CGM, however did not bring the device with him to display his BGL levels. -Esha Jones, RN documented in this encounter Plan of Treatment Not on file documented as of this encounter Visit Diagnoses Not on filedocumented in this encounter Care Teams Operating Systems Specialist Relationship Specialty Start Date End Date Mauro Berumen MD [address] [place] [address] PCP - General Family Medicine 06/02/24 documented as of this encounter
--- OUTSIDE RECORDS SUMMARY | 2024-08-04 20:28 | XMS_ITS | Encounter Summary ---
Author Organization [facility] Address [facility] [place] [address] Care Team Providers Care Wrecking Supervisor Name Role Phone Mauro Berumen MD Primary Care Provider [phone] Encounter Details Date Type Department Care Team (Latest Contact Info) Description 07/20/2024 Travel Social History Tobacco Use Types Packs/Day Years Used Date Smoking Tobacco: Every Day Cigarettes Smokeless Tobacco: Never [facility] Utilities Answer Date Recorded In the past [...] any time in the past [address] [facility], were you homeless or living in a [facility] (including now)? No 06/03/2024 IPV Inpatient Questions Answer Date Recorded Does [...] on filedocumented in this encounter Care Teams Wrecking Supervisor Relationship Specialty Start Date End Date Mauro Berumen MD [address] [place] [id number] PCP - General Family Medicine 06/02/24 documented as of this encounter
--- OUTSIDE RECORDS SUMMARY | 2024-08-04 20:28 | XMS_ITS | Encounter Summary ---
Author Organization [facility] Address [facility] [place] [address] Care Team Providers Care Lap Grinder Name Role Phone Mauro Berumen MD Primary Care Provider [phone] Encounter Details Date Type Department Care Team (Late st Contact Info) Description 07/20/2024 3:20 PM EST Office Visit Cardiac Surgery at [facility] [place] [address] Bobby Loja MD [facility] [place] [address] Post-operative state Social History Tobacco Use Types Packs/Day Years Used Date Smoking Tobacco: Every Day Cigarettes Smokeless Tobacco: Never [facility] Utilities Answer Date Recorded In the [...] any time in the past 12 m [facility], were you homeless or living in a halfway (including now)? No 06/03/2024 DH IPV Inpatient [...] Sign Reading Time Taken Comments Blood Pressure 135/69 07/20/2024 3:32 PM EST Pulse 80 07/20/2024 3:32 PM EST Temperature - - Respiratory Rate - - Oxygen Saturation 97% 07/20/2024 3:32 PM EST Inhaled Oxygen Concentration - - Weight 96.3 kg (212 lb 6.4 oz) 07/20/2024 3:32 P M EST Height 167.6 cm (5' 6) 07/20/2024 3:32 PM EST Body Mass Index 34.28 07/20/2024 3:32 PM EST documented in this encounter Progress Notes * Christel Carter PA - 07/20/2024 3:20 PM EST Cardiac Surgery Clinic Note HPI: Arturo Mehta is a 69 y.o. male with multivessel CAD who is s/p CABG x3, mediastinal mass excision, and MARIALUISA exploration/clipping on 06/14/24. Patient has done okay since surgery - his main complaint is generalized fatigue. He is taking frequent naps throughout the day despite sleeping through the night. He denies shortness of breath, chest pain, lower extremity swelling, drainage from his incisions, and palpitations. There have been no interval ED visits or hospitalizations. He has not yet seen his PCP or tire service supervisor since surgery. His appetite has been normal and he is having regularBMs. Current medications: Current Outpatient Medications on File Prior to Visit Medication Sig Dispense Refill acetaminophen (Tylenol) 325 mg tablet Take 3 tablets by mouth every 6 hours as needed for Pain. furosemide (Lasix) 20 mg tablet Take 1 tablet by mouth daily. 30 tablet 3 guaiFENesin ER (Mucinex) 600 mg ER 12 hr tablet Take 1 tablet by mouth every 12 hours. 10 tablet 0 Insulin Tresiba FlexTouch U-100 100 unit/mL (3 mL) Insulin Pen Inject 30 Units subcutaneously daily. Indications: type 2 diabetes mellitus metFORMIN (Fortamet) 1,000 mg ER 24 hr tablet Take 1,000 mg by mouth 2 times daily. carvediloL (Coreg) 12.5 mg tablet Take 12.5 mg by mouth 2 times daily. atorvastatin (Lipitor) 80 mg tablet Take 80 mg by mouth daily. cholecalciferol, Vitamin D3, 50 mcg (2,000 unit) Capsule Take 2,000 Units by mouth daily. aspirin 81 mg chewable tablet Take 81 mg by mouth daily. escitalopram (Lexapro) 20 mg tablet Take 20 mg by mouth daily. sacubitriL-valsartan (Entresto) 49-51 mg tablet Take 1 tablet by mouth 2 times daily. clopidogreL (Plavix) 75 mg tablet Take 75 mg by mouth daily. empagliflozin (Jardiance) 25 mg tablet Take 25 mg by mouth daily. insulin aspart U-100 (NovoLOG Flexpen U-100 Insulin) 100 unit/mL (3 mL) Insulin Pen Inject 20 Unitssubcutaneously 3 times daily (with meals). No current facility-administered medications on file prior to visit. O: Vitals: 07/20/24 1532 BP: 135/69 Pulse: 80 SpO2: 97% Weight: 96.3 kg (212 lb 6.4 oz) Height: 167.6 cm (5' 6) Physical exam: General: Sitting in chair. NAD. Pleasant Neuro: CN II-XII grossly intact, no focal deficits, but notably fatigued Lungs: Clear, non-labored respirations on room air Heart: RRR, no murmur rub or gallop Abdomen: Soft, mildly distended Ext: WWP, no LE edema Incisions: well-healed sternal and saphenectomy (right) incisions, no surrounding warmth or drainage Surgical pathology (06/14/24): A. Soft Tissue Mass, Mediastinal Mass, Excision: - Atrophic thymic tissue B. Heart, Atrial Appendage, Left, Excision: - Mild myocyte hypertrophy Assessment/Plan: 69 y.o. male who is s/p CABGx3, mediastinal mass excision, and MARIALUISA exploration/clipping on 06/14/24 who is recovering well from surgery despite ongoing generalized fatigue. Of note -following our evaluation, patient became lightheaded/diaphoretic and found to have a POC BG of 40; a wilfredo white was called but patient was feeling well after eating a snack. He was advised to follow up with his PCP for insulin optimization as stated below. ED return precautions were also provided. - No medication changes from cardiac surgery perspective - Follow up with Slot Machine Mechanic (Kristen Cardenas) and PCP (Mauro Berumen) as discussed for medication (includinginsulin regimen) optimization and consideration of Neurology referral and/or SSRI tapering - Optimize sleep hygiene, try to avoid daytime naps if possible - May resume driving in 2 weeks once cleared by PCP - No lifting > 20lbs for 2 more weeks. No restrictions thereafter. - OK to start cardiac rehab. - No further cardiac surgery follow up needed. Patient was diagnosed with low Blood sugar by the wilfredo saunders team. Condition corrected. Patient seen and examined with HENOK Saucedo MD Cardiac Surgery 07/20/2024 documented in this encounter Plan of Treatment Not on file documented as of this encounter Procedures Procedure Name Priority Date/Time Associated Diagnosis Comments POC, GLUCOSE Routine 07/20/2024 4:31 PM EST documented in this encounter Results * POC, GLUCOSE (07/20/2024 4:31 PM EST) [facility] Signature Glucometer, POC 125 65 - 199 mg/dL 07/20/2024 4:31 PM EST [facility] Comment:Supplemental ranges: <140 mg/dL before meals <180 mg/dL all other times of the day. Blood CAPILLARY BLOOD / Unknown 07/20/2024 4:31 PM EST 07/20/2024 4:31 PM EST Bobby Loja MD POINT OF CARE TEST [place] [address] documented in this encounter Visit Diagnoses Diagnosis Post-operative state Other postprocedural status documented in this encounter Care Teams Lap Grinder Relationship Specialty Start Date End Date Mauro Berumen MD [address] [place] [address] PCP - General Family Medicine 06/02/24 documented as of this encounter
--- OUTSIDE RECORDS SUMMARY | 2024-08-04 20:28 | XMS_ITS | Clinical Summary ---
Author Organization [facility] Address [facility] [place] [address] Care Team Providers Care Vamp Presser Name Role Phone Mauro Berumen MD Primary Care Provider [phone] Allergies No known active allergies Medications Medication Sig Dispensed Refills Start Date End Date Status metFORMIN (Fortamet) 1,000 mg ER 24 hr tablet Take 1,000 mg by mouth 2 times daily. Active carvediloL (Coreg) 12.5 mg tablet Take 12.5 mg by mouth 2 times daily. Active atorvastatin (Lipitor) 80 mg tablet Take 80 mg by mouth daily. Active cholecalciferol, Vitamin D3, 50 mcg (2,000 unit) Capsule Take 2,000 Units by mouth daily. Active aspirin 81 mg chewable tablet Take 81 mg by mouth daily. Active escitalopram (Lexapro) 20 mg tablet Take 20 mg by mouth daily. Active sacubitriL-valsar rodriguez (Entresto) 49-51 mg tablet Take 1 tablet by mouth 2 times daily. Active clopidogreL (Plavix) 75 mg tablet Take 75 mg by mouth daily. Active empagliflozin (Jardiance) 25 mg tablet Take 25 mg by mouth daily. Active insulin aspart U-100 (NovoLOG Flexpen U-100 Insulin) 100 unit/mL (3 mL) Insulin Pen Inject 20 Units subcutaneously 3 times daily (with meals). Active acetaminophen (Tylenol) 325 mg tablet Take 3 tablets by mouth every 6 hours as needed for Pain. 06/21/2024 Active furosemide (Lasix) 20 mg tablet Take 1 tablet by mouth daily. 30 tablet 3 06/21/2024 Active guaiFENesin ER (Mucinex) 600 mg ER 12 hr tablet Take 1 tablet by mouth every 12 hours. 10 tablet 06/21/2024 Active Insulin Tresiba FlexTouch U-100 100 unit/mL (3 mL) Insulin PenIndications:ty pe 2 diabetes mellitus Inject 30 Units subcutaneously daily. Indications: type 2 diabetes mellitus 06/21/2024 Active Active Problems Problem Noted Date Diagnosed Date Cardiac resynchronization th erapy defibrillator ([employer]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) - Medtronic Amplia 06/09/2024 Cardiomyopathy, ischemic 06/09/2024 Acute on chronic heart failu re with reduced ejection fraction (HFrEF, <= 40%) 06/05/2024 Coronary artery disease invo lving inaja coronary artery of inaja heart without angina pectoris 06/05/2024 Type 2 diabetes mellitus 06/05/2024 STEMI (ST elevation myocardial infarction) 06/02 Encounters Date Type Department Care Team Description 07/20/2024 3:20 PM EST Office Visit Cardiac Surgery at [place] [phone] Wendi Loja MD Post-operative state 07/20/2024 Notes Only Cardiology at [place] [phone] Esha Jones RN 07/20/2024 Travel 06/15/2024 Unscheduled Encounter Cardiology at [address] [phone] Ross Corbin PA Cardiac resynchronization therapy defibrillator ([employer]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 [Z95.810] 06/14/2024 7:30 AM EST - 06/14/2024 2:08 PM EST Surgery Main [place] [phone] Wendi Loja MD @CABG, USING ARTERIAL GRAFT;SINGLE ARTERIAL GRAFT (WRVU 33.75) 06/14/2024 7:30 AM EST Anesthesia Event [place] [phone] Hosea Ardon MD Budney, Colleen E, CRNA 06/14/2024 Unscheduled Encounter Cardiology at [address] [phone] Ross Corbin PA Cardiac resynchronization therapy defibrillator ([employer]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 [Z95.810] 06/13/2024 9:00 AM EST - 06/13/2024 10:00 AM EST Surgery [facility] [place] [phone] Nuha Shen MD CARDIAC CATHETERIZATION 06/08/2024 Ophth Exam Ophthalmology at [place] [phone] Yumiko De La Torre, COT 06/03/2024 Orders [place] [phone] Unknown 06/03/2024 Travel 06/02/2024 11:09 PM EDT - 06/21/2024 1:07 PM EST Hospital Encounter Heart and Vascular Unit Level 4 Wing B at [place] [phone] Nuha Shen MD Costa, MD Lucio Moore, MD Gerardo Mackey, MD Fitz Duval, MD Freedom Lopez, Wendi Santiago MD ST elevation myocardial infarction (STEMI), unspecified artery; Coronary artery disease involving inaja coronary artery of inaja heart without angina pectoris; S/P CABG x 3 Discharge Disposition: Home with [facility] 06/02/2024 11:00 PM EDT - 06/03/2024 12:18 AM EDT [place] [phone] Nuha Shen MD CARDIAC CATHETERIZATION 06/02/2024 External [place] [phone] 06/02/2024 [place] [address] Sascha Silva MD from Last 3 Months Social History Tobacco Use Types Packs/Day Years Used Date Smoking Tobacco: Every Day Cigarettes Smokeless Tobacco: Never Tobacco Cessation:Ready to Q uit: No; Counseling Given: Yes [facility] Utilities Answer Date Recorded In the past [...] any time in the past 12 m [facility], were you homeless or living in a alf (including now)? No 06/03/2024 DH IPV Inpatient [...] on file Sexual Orientation Not on file Last Filed Vital Signs Vital Sign Reading Time Taken Comments Blood Pressure 116/58 07/20/2024 4:30 PM EST MAP 76 Pulse 79 07/20/2024 4:30 PM EST Temperature 36 ??C (96.8 ??F) 07/20/2024 4:30 PM EST Respiratory Rate 16 07/20/2024 4:30 PM EST Oxygen Saturation 94% 07/20/2024 4:30 PM EST RA Inhaled Oxygen Concentration - - Weight 96.3 kg (212 lb 6.4 oz) 07/20/2024 3:32 P M EST Height 167.6 cm (5' 6) 07/20/2024 3:32 PM EST Body Mass Index 34.28 07/20/2024 3:32 PM EST Plan of Treatment Health Maintenance Due Date Last Done Comments CT Colonography 1957 Colonoscopy 1957 Colorectal Cancer Screening 1957 FIT DNA 1957 FIT 1957 Sigmoidoscopy (10 year) with FIT yearly 1957 Sigmoidoscopy 1957 DM Opthalmology Exam 1967 DM Urine Microalbumin yearly 1967 Hepatitis C Screening 1975 Pneumoccocal Vaccine: 65+ (1 of 2 - PCV) 1976 Tetanus/Diphtheria/Pertussis Vaccines (1 - Tdap) 1976 Zoster vaccine (1 of 2) 2007 Advance Directive 2012 RSV Vaccine (1 - Risk 60-74 years 1-dose series) 2017 AAA Screen 2022 Covid-19 Vaccine (1 - 2023-2 5 season) 2024 Influenza (Flu) vaccine (1 o f 1 - Influenza standard series) 04/04/2024 DM Hemoglobin A1c 6 month 12/04/2024 06/06/2024 DM Creatinine yearly 06/21/2025 06/21/2024, 06/20/2024, 06/19/2024, Additional history exists Lipid Screening Discontinued 06/03/2024 Diabetes Screening (HgbA1C o r Glucose) Discontinued 06/21/2024, 06/20/2024, 06/19/2024, Additional history exists Medical Devices Implanted Type Area Vp Cardiovascular Service Line Device Identifier Shelf Expiration Date Model / Serial / Lot Mdt Amplia Mri Quad Crtd-06/16/2019 Implanted:06/16/2019 (Quantity not on file) Cardiac Resynchronizati on Therapy - Defibrillator Chest Medtronic Cardio - [id number] / [id number] / Description:When scanned at [facility] this SureScan System ([id number] and leads 4076, 6935M, and 4298) can undergo an MRI under the following conditions: Scanner type Horizontal field, cylindrical bore, clinical system for hydrogen proton imaging Static magnetic field of one of the following strengths: ? 1.5 T or ? 3 T Maximum spatial gradient of < 20 T/m (2000 gauss/cm) Gradient systems with maximum gradient slew rate performance per axis of < 200 T/m/s Scanner operation 1.5T ? MRI radio frequency (RF) power ? Normal Operating Mode The whole body averaged specific absorption rate (ELIEZER) must be < 2.0 W/kg. The head ELIEZER must be < 3.2 W/kg. 3T ? MRI radio frequency (RF) power ? First Level Controlled Operating Mode or Normal Operating Mode: B1+DAVID must be < 2.8 ??T when the isocenter (center of the MRI bore) is inferior to the C7 vertebra. Scans can be performed without B1+DAVID restriction when the isocenter is at or superior to the C7 vertebra A 2 view Chest X-Ray is required within 1 year of the MRI scan. Patient will need to be continuously monitored during the MRI scan by pulse oximetry and electrocardiography by an ACLS Certified Nurse. Patient will need to have device placed in MRI Protection Mode by EP at the beginning of the MRi and taken out of at the conclusion. Octaviano Moranavya RT (R)(MR) 06/04/2024 Clip 35mm Closure Exclusion System Preloaded Atriclip ([id number]) (Autoreq) - [id number] Implanted:Qty: 1 on 06/14/2024 by Wendi Loja MD at [facility] IMPLANTS N/A: Heart ATRICURE - ATRICURE 03/04/2027 [id number] / / [id number] Cable,Cut,Edg,Blnt,S s,3tpr ([id number]) - [id number] Implanted:Qty: 1 on 06/14/2024 by Wendi Loja MD at [facility] IMPLANTS Midline: Sternum [employer] - [id number] 09/10/2028 [id number] / / [id number] Janett 4076 Capsurefix Novus Lead-06/16/2019 Implanted:Qty: 1 on 06/16/2019 Lead Chest Medtronic Cardio - [id number] / [id number] / Description:Atrial Lead 4076 See Generator Tab for MRI Conditions Octaviano Morgannavya RT (R)(MR) 06/04/2024 Janett 6935m Lead-06/16/2019 Implanted:Qty: 1 on 06/16/2019 Lead Chest Medtronic Cardio - [id number] / [id number] / Description:RV Lead See Generator Tab for MRI Conditions Octaviano Hawkins RT (R)(MR) 06/04/2024 Mdt 4298 Attain Performa Lead-06/16/2019 Implanted:Qty: 1 on 06/16/2019 Lead Chest Medtronic Cardio - [id number] / [id number] / Description:LV Lead See Generator Tab for MRI Conditions Octaviano Hawkins RT (R)(MR) 06/04/2024 Procedures Procedure Name Priority Date/Time Associated Diagnosis Comments POC, GLUCOSE Routine 07/20/2024 4:31 PM EST SCAN DOC: TELEMETRY STRIPS 06/21/2024 7:50 AM EST POC, GLUCOSE Routine 06/21/2024 3:51 AM EST BASIC METABOLIC PANEL Routine 06/21/2024 2:09 AM EST POC, GLUCOSE Routine 06/21/2024 12:04 AM EST POC, GLUCOSE Routine 06/20/2024 11:14 PM EST SCAN DOC: TELEMETRY STRIPS 06/20/2024 7:55 PM EST POC, GLUCOSE Routine 06/20/2024 7:16 PM EST POC, GLUCOSE Routine 06/20/2024 3:39 PM EST POC, GLUCOSE Routine 06/20/2024 12:02 PM EST SCAN DOC: TELEMETRY STRIPS 06/20/2024 7:39 AM EST SCAN DOC: TELEMETRY STRIPS 06/20/2024 7:30 AM EST SCAN DOC: TELEMETRY STRIPS 06/20/2024 7:29 AM EST SCAN DOC: TELEMETRY STRIPS 06/20/2024 7:29 AM EST POC, GLUCOSE Routine 06/20/2024 7:10 AM EST BASIC METABOLIC PANEL Routine 06/20/2024 2:28 AM EST POC, GLUCOSE Routine 06/20/2024 12:32 AM EST POC, GLUCOSE Routine 06/20/2024 12:02 AM EST POC, GLUCOSE Routine 06/19/2024 8:15 PM EST SCAN DOC: TELEMETRY STRIPS 06/19/2024 7:32 PM EST SCAN DOC: TELEMETRY STRIPS 06/19/2024 7:32 PM EST POC, GLUCOSE Routine 06/19/2024 6:01 PM EST POC, GLUCOSE Routine 06/19/2024 4:51 PM EST POC, GLUCOSE Routine 06/19/2024 12:37 PM EST POC, GLUCOSE Routine 06/19/2024 11:20 AM EST SCAN DOC: TELEMETRY STRIPS 06/19/2024 7:51 AM EST POC, GLUCOSE Routine 06/19/2024 7:21 AM EST SCAN DOC: TELEMETRY STRIPS 06/19/2024 7:17 AM EST POC, GLUCOSE Routine 06/19/2024 4:52 AM EST POC, GLUCOSE Routine 06/19/2024 4:13 AM EST POC, GLUCOSE Routine 06/19/2024 3:48 AM EST BASIC METABOLIC PANEL Routine 06/19/2024 3:44 AM EST POC, GLUCOSE Routine 06/19/2024 12:23 AM EST POC, GLUCOSE Routine 06/18/2024 11:08 PM EST SCAN DOC: TELEMETRY STRIPS 06/18/2024 7:44 PM EST POC, GLUCOSE Routine 06/18/2024 7:32 PM EST POC, GLUCOSE Routine 06/18/2024 6:08 PM EST POC, GLUCOSE Routine 06/18/2024 4:17 PM EST SCAN DOC: TELEMETRY STRIPS 06/18/2024 12:37 PM EST POC, GLUCOSE Routine 06/18/2024 12:09 PM EST SCAN DOC: TELEMETRY STRIPS 06/18/2024 12:07 PM EST SCAN DOC: TELEMETRY STRIPS 06/18/2024 12:07 PM EST POC, GLUCOSE Routine 06/18/2024 7:49 AM EST BASIC METABOLIC PANEL Routine 06/18/2024 4:19 AM EST POC, GLUCOSE Routine 06/18/2024 3:50 AM EST POC, GLUCOSE Routine 06/17/2024 11:10 PM EST POC, GLUCOSE Routine 06/17/2024 7:54 PM EST SCAN DOC: TELEMETRY STRIPS 06/17/2024 7:26 PM EST POC, GLUCOSE Routine 06/17/2024 4:07 PM EST XR CHEST PA AND LATERAL Routine 06/17/20 1:46 PM EST POC, GLUCOSE Routine 06/17/2024 11:04 AM EST POC, GLUCOSE Routine 06/17/2024 7:49 AM EST POC, GLUCOSE Routine 06/17/2024 4:16 AM EST LACTATE, WHOLE BLOOD Routine 06/17/2024 2:39 AM EST HEMOGRAM Routine 06/17/2024 2:39 AM EST BASIC METABOLIC PANEL Routine 06/17/2024 2:39 AM EST POC, GLUCOSE Routine 06/17/2024 12:13 AM EST SCAN DOC: TELEMETRY STRIPS 06/16/2024 8:46 PM EST POC, GLUCOSE Routine 06/16/2024 7:22 PM EST SCAN DOC: TELEMETRY STRIPS 06/16/2024 6:58 PM EST POC, GLUCOSE Routine 06/16/2024 6:14 PM EST LACTATE, WHOLE BLOOD Routine 06/16/2024 6:14 PM EST POC, GLUCOSE Routine 06/16/2024 4:14 PM EST POC, GLUCOSE Routine 06/16/2024 11:49 AM EST HEMOGRAM Routine 06/16/2024 11:44 AM EST LACTATE, WHOLE BLOOD Routine 06/16/2024 9:02 AM EST POC, GLUCOSE Routine 06/16/2024 7:44 AM EST POC, GLUCOSE Routine 06/16/2024 4:01 AM EST BASIC METABOLIC PANEL Routine 06/16/2024 2:23 AM EST POC, GLUCOSE Routine 06/16/2024 2:21 AM EST POC, GLUCOSE Routine 06/16/2024 12:09 AM EST POC, GLUCOSE Routine 06/15/2024 10:07 PM EST POC, GLUCOSE Routine 06/15/2024 7:56 PM EST POC, GLUCOSE Routine 06/15/2024 7:52 PM EST POC, GLUCOSE Routine 06/15/2024 4:21 PM EST POC, GLUCOSE Routine 06/15/2024 3:27 PM EST POC, GLUCOSE Routine 06/15/2024 2:23 PM EST POC, GLUCOSE Routine 06/15/2024 1:26 PM EST POC, GLUCOSE Routine 06/15/2024 12:55 PM EST POC, GLUCOSE Routine 06/15/2024 11:29 AM EST BASIC METABOLIC PANEL Routine 06/15/2024 11:23 AM EST POC, GLUCOSE Routine 06/15/2024 10:29 AM EST POC, GLUCOSE Routine 06/15/2024 9:45 AM EST COOX, POC Routine 06/15/2024 9:31 AM EST COOX, POC Routine 06/15/2024 9:22 AM EST BLOOD GAS ARTERIAL POC Routine 9:19 AM EST POC, GLUCOSE Routine 06/15/2024 8:37 AM EST POC, GLUCOSE Routine 06/15/2024 7:37 AM EST POC, GLUCOSE Routine 06/15/2024 7:01 AM EST XR CHEST ONE VIEW Routine 06/15/2024 6:3 1 AM EST POC, GLUCOSE Routine 06/15/2024 6:02 AM EST POC, GLUCOSE Routine 06/15/2024 5:06 AM EST POC, GLUCOSE Routine 06/15/2024 4:05 AM EST POC, GLUCOSE Routine 06/15/2024 3:07 AM EST EXTUBATE Routine 06/15/2024 2:03 AM EST TROPONIN - SINGLE Timed 06/15/2024 1:4 8 AM EST BASIC METABOLIC PANEL Routine 06/15/2024 1:48 AM EST CBC (WITH DIFF) Routine 06/15/2024 1:48 AM EST BLOOD GAS ARTERIAL POC Routine 1:46 AM EST POC, GLUCOSE Routine 06/15/2024 1:05 AM EST POC, GLUCOSE Routine 06/15/2024 12:16 AM EST POTASSIUM Routine 06/14/2024 11:28 PM EST POC, GLUCOSE Routine 06/14/2024 10:58 PM EST POC, GLUCOSE Routine 06/14/2024 9:55 PM EST POC, GLUCOSE Routine 06/14/2024 8:54 PM EST POC, GLUCOSE Routine 06/14/2024 7:51 PM EST POC, GLUCOSE Routine 06/14/2024 6:49 PM EST HEMOGLOBIN Routine 06/14/2024 6:19 PM EST POTASSIUM Routine 06/14/2024 6:19 PM EST POC, GLUCOSE Routine 06/14/2024 6:03 PM EST BLOOD GAS ARTERIAL POC Routine 4:51 PM EST POC, GLUCOSE Routine 06/14/2024 4:00 PM EST XR CHEST ONE VIEW STAT 06/14/2024 3:0 5 PM EST BLOOD GAS ARTERIAL POC Routine 2:52 PM EST EKG 12-LEAD STAT 06/14/2024 2:46 PM EST S/P CABG x 3 PREPARE RBC STAT 06/14/2024 2:[address] elevation myocardial infarction (STEMI), unspecified artery COOX, POC Routine 06/14/2024 1:52 PM EST BLOOD GAS ARTERIAL POC Routine 12:47 PM EST COOX, POC Routine 06/14/2024 12:42 PM EST PLATELET COUNT PERFORMABLE STAT 06/14/2024 12:30 PM EST HEMOGLOBIN AND HEMATOCRIT, BLOOD STAT 06/14/2024 12:30 PM EST HC PARTIAL THROMBOPLASTIN TIME STAT 06/14/2024 12:30 PM EST PROTHROMBIN TIME STAT 06/14/2024 12:3 0 PM EST FIBRINOGEN STAT 06/14/2024 12:30 PM EST PLATELET COUNT STAT 06/14/2024 12:30 PM EST BLOOD GAS ARTERIAL POC Routine 4 12:15 PM EST BLOOD GAS ARTERIAL POC Routine 4 11:51 AM EST BLOOD GAS ARTERIAL POC Routine 4 11:27 AM EST SCAN, PERIPHERAL BLOOD STAT 4 11:23 AM EST PLATELET COUNT PERFORMABLE STAT 06/14/2024 11:23 AM EST HEMOGLOBIN AND HEMATOCRIT, BLOOD STAT 06/14/2024 11:23 AM EST PLATELET COUNT STAT 06/14/2024 11:23 AM EST BLOOD GAS ARTERIAL POC Routine 4 10:58 AM EST BLOOD GAS ARTERIAL POC Routine 4 10:26 AM EST BLOOD GAS ARTERIAL POC Routine 4 10:25 AM EST SURGICAL PATHOLOGY Routine 06/14/2024 9: 53 AM EST COOX, POC Routine 06/14/2024 9:00 AM EST BLOOD GAS ARTERIAL POC Routine 4 8:39 AM EST Unlisted Cardiac Surg Procedure ([id number]) 06/14/2024 7:34 AM EST 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) 06/14/2024 7:34 AM EST CAD Endoscopy W/Video-Asst Vein [place], Cabg ([id number]) 06/14/2024 7:34 AM EST CAD Cabg, Artery-Vein, Two ([id number]) 06/14/2024 7:34 AM EST CAD Cabg, Arterial, Single ([id number]) 06/14/2024 7:34 AM EST CAD TRANSESOPHAGEAL ECHOCARDIOGRAM IN THE OR Routine 06/14/2024 7:20 AM EST Coronary artery disease involving inaja coronary artery of inaja heart without angina pectoris POC, GLUCOSE Routine 06/14/2024 7:11 AM EST POC, GLUCOSE Routine 06/14/2024 4:30 AM EST HEPARIN (UNFRACTIONATED) LEVEL Timed 06/14/2024 12:12 AM EST CBC (WITH DIFF) Routine 06/14/2024 12:12 AM EST MAGNESIUM Routine 06/14/2024 12:12 AM EST BASIC METABOLIC PANEL Routine 06/14/2024 12:12 AM EST IMPLANTABLE DEVICES SCAN 06/14/2024 12:00 AM EST POC, GLUCOSE Routine 06/13/2024 11:12 PM EST POC, GLUCOSE Routine 06/13/2024 8:03 PM EST SCAN DOC: TELEMETRY STRIPS 06/13/2024 7:19 PM EST ABORH RECHECK STAT 06/13/2024 4:11 PM EST HEPARIN (UNFRACTIONATED) LEVEL Timed 06/13/2024 4:11 PM EST POC, GLUCOSE Routine 06/13/2024 4:09 PM EST TYPE AND SCREEN ([facility]/CGP/RAFITA) STAT 06/13/2024 11:53 AM EST POC, GLUCOSE Routine 06/13/2024 11:50 AM EST XR CHEST ONE VIEW Routine 06/13/2024 10: 35 AM EST CARDIAC CATHETERIZATION Routine 06/13/20 9:02 AM EST POTASSIUM Routine 06/13/2024 7:48 AM EST SCAN DOC: TELEMETRY STRIPS 06/13/2024 7:41 AM EST POC, GLUCOSE Routine 06/13/2024 7:41 AM EST SCAN DOC: TELEMETRY STRIPS 06/13/2024 7:23 AM EST POC, GLUCOSE Routine 06/13/2024 3:25 AM EST HEPARIN (UNFRACTIONATED) LEVEL Timed 06/13/2024 2:26 AM EST CBC (WITH DIFF) Routine 06/13/2024 2:26 AM EST MAGNESIUM Routine 06/13/2024 2:26 AM EST BASIC METABOLIC PANEL Routine 06/13/2024 2:26 AM EST POC, GLUCOSE Routine 06/12/2024 11:53 PM EST SCAN DOC: TELEMETRY STRIPS 06/12/2024 9:37 PM EST SCAN DOC: TELEMETRY STRIPS 06/12/2024 7:45 PM EST POC, GLUCOSE Routine 06/12/2024 7:32 PM EST POC, GLUCOSE Routine 06/12/2024 3:41 PM EST POTASSIUM Routine 06/12/2024 2:19 PM EST POC, GLUCOSE Routine 06/12/2024 11:21 AM EST POC, GLUCOSE Routine 06/12/2024 8:00 AM EST SCAN DOC: TELEMETRY STRIPS 06/12/2024 7:48 AM EST SCAN DOC: TELEMETRY STRIPS 06/12/2024 7:27 AM EST POC, GLUCOSE Routine 06/12/2024 4:25 AM EST HEPARIN (UNFRACTIONATED) LEVEL Timed 06/12/2024 3:03 AM EST CBC (WITH DIFF) Routine 06/12/2024 3:03 AM EST MAGNESIUM Routine 06/12/2024 3:03 AM EST BASIC METABOLIC PANEL Routine 06/12/2024 3:03 AM EST POC, GLUCOSE Routine 06/11/2024 11:56 PM EST POC, GLUCOSE Routine 06/11/2024 8:25 PM EST SCAN DOC: TELEMETRY STRIPS 06/11/2024 8:14 PM EST SCAN DOC: TELEMETRY STRIPS 06/11/2024 7:48 PM EST SCAN DOC: TELEMETRY STRIPS 06/11/2024 6:10 PM EST POC, GLUCOSE Routine 06/11/2024 4:24 PM EST POC, GLUCOSE Routine 06/11/2024 11:08 AM EST SCAN DOC: TELEMETRY STRIPS 06/11/2024 8:49 AM EST POC, GLUCOSE Routine 06/11/2024 7:48 AM EST @INSERTION OF IABP,PERCUTANEOUS Routine 06/11/2024 6:19 AM EST HEPARIN (UNFRACTIONATED) LEVEL Timed 06/11/2024 5:31 AM EST POC, GLUCOSE Routine 06/11/2024 3:57 AM EST CBC (WITH DIFF) Routine 06/11/2024 2:13 AM EST MAGNESIUM Routine 06/11/2024 2:13 AM EST BASIC METABOLIC PANEL Routine 06/11/2024 2:13 AM EST POC, GLUCOSE Routine 06/11/2024 12:50 AM EST SCAN DOC: TELEMETRY STRIPS 06/10/2024 8:46 PM EST POC, GLUCOSE Routine 06/10/2024 7:22 PM EST SCAN DOC: TELEMETRY STRIPS 06/10/2024 7:17 PM EST BLOOD GAS VENOUS STAT 06/10/2024 5:42 PM EST POC, GLUCOSE Routine 06/10/2024 5:35 PM EST POC, GLUCOSE Routine 06/10/2024 11:25 AM EST SCAN DOC: TELEMETRY STRIPS 06/10/2024 10:39 AM EST POC, GLUCOSE Routine 06/10/2024 7:46 AM EST SCAN DOC: TELEMETRY STRIPS 06/10/2024 7:37 AM EST POC, GLUCOSE Routine 06/10/2024 4:23 AM EST CBC (WITH DIFF) Routine 06/10/2024 1:55 AM EST MAGNESIUM Routine 06/10/2024 1:55 AM EST BASIC METABOLIC PANEL Routine 06/10/2024 1:55 AM EST HEPARIN (UNFRACTIONATED) LEVEL Timed 06/10/2024 1:54 AM EST POC, GLUCOSE Routine 06/10/2024 12:05 AM EST POC, GLUCOSE Routine 06/09/2024 8:36 PM EST SCAN DOC: TELEMETRY STRIPS 06/09/2024 7:37 PM EST SCAN DOC: TELEMETRY STRIPS 06/09/2024 7:37 PM EST POC, GLUCOSE Routine 06/09/2024 5:27 PM EST POC, GLUCOSE Routine 06/09/2024 11:52 AM EST SCAN DOC: TELEMETRY STRIPS 06/09/2024 10:09 AM EST POTASSIUM Routine 06/09/2024 8:25 AM EST POC, GLUCOSE Routine 06/09/2024 8:10 AM EST SCAN DOC: TELEMETRY STRIPS 06/09/2024 7:12 AM EST POC, GLUCOSE Routine 06/09/2024 4:40 AM EST HEPARIN (UNFRACTIONATED) LEVEL Timed 06/09/2024 2:12 AM EST CBC (WITH DIFF) Routine 06/09/2024 2:12 AM EST MAGNESIUM Routine 06/09/2024 2:12 AM EST BASIC METABOLIC PANEL Routine 06/09/2024 2:12 AM EST POC, GLUCOSE Routine 06/09/2024 12:34 AM EST POC, GLUCOSE Routine 06/08/2024 8:27 PM EST SCAN DOC: TELEMETRY STRIPS 06/08/2024 7:15 PM EST POC, GLUCOSE Routine 06/08/2024 4:16 PM EST POC, GLUCOSE Routine 06/08/2024 12:35 PM EST SCAN DOC: TELEMETRY STRIPS 06/08/2024 8:19 AM EST POC, GLUCOSE Routine 06/08/2024 8:10 AM EST SCAN DOC: TELEMETRY STRIPS 06/08/2024 7:42 AM EST POC, GLUCOSE Routine 06/08/2024 4:09 AM EST HEPARIN (UNFRACTIONATED) LEVEL Timed 06/08/2024 3:21 AM EST CBC (WITH DIFF) Routine 06/08/2024 3:21 AM EST MAGNESIUM Routine 06/08/2024 3:21 AM EST BASIC METABOLIC PANEL Routine 06/08/2024 3:21 AM EST POC, GLUCOSE Routine 06/07/2024 11:57 PM EST SCAN DOC: TELEMETRY STRIPS 06/07/2024 8:46 PM EST SCAN DOC: TELEMETRY STRIPS 06/07/2024 8:43 PM EST POC, GLUCOSE Routine 06/07/2024 8:05 PM EST SCAN DOC: TELEMETRY STRIPS 06/07/2024 7:29 PM EST POTASSIUM Routine 06/07/2024 5:22 PM EST POC, GLUCOSE Routine 06/07/2024 4:31 PM EST SCAN DOC: TELEMETRY STRIPS 06/07/2024 1:30 PM EST MRI CARDIAC MORPHOLOGY FUNCTION WWO CONTRAST Routine 06/07/2024 1:10 PM EST POC, GLUCOSE Routine 06/07/2024 11:05 AM EST POC, GLUCOSE Routine 06/07/2024 11:03 AM EST POTASSIUM Routine 06/07/2024 9:44 AM EST POC, GLUCOSE Routine 06/07/2024 7:45 AM EST SCAN DOC: TELEMETRY STRIPS 06/07/2024 7:40 AM EST SCAN DOC: TELEMETRY STRIPS 06/07/2024 7:39 AM EST XR CHEST PA AND LATERAL Routine 06/07/20 24 7:03 AM EST POC, GLUCOSE Routine 06/07/2024 4:25 AM EST HEPARIN (UNFRACTIONATED) LEVEL Timed 06/07/2024 2:41 AM EST CBC (WITH DIFF) Routine 06/07/2024 2:41 AM EST MAGNESIUM Routine 06/07/2024 2:41 AM EST BASIC METABOLIC PANEL Routine 06/07/2024 2:41 AM EST SCAN DOC: TELEMETRY STRIPS 06/07/2024 2:01 AM EST POC, GLUCOSE Routine 06/07/2024 12:08 AM EST POC, GLUCOSE Routine 06/06/2024 8:18 PM EST SCAN DOC: TELEMETRY STRIPS 06/06/2024 8:06 PM EST SCAN DOC: TELEMETRY STRIPS 06/06/2024 7:29 PM EST SCAN DOC: TELEMETRY STRIPS 06/06/2024 7:02 PM EST SCAN DOC: TELEMETRY STRIPS 06/06/2024 6:19 PM EST POC, GLUCOSE Routine 06/06/2024 3:39 PM EST POTASSIUM Routine 06/06/2024 2:37 PM EST POC, GLUCOSE Routine 06/06/2024 1:39 PM EST POC, GLUCOSE Routine 06/06/2024 11:34 AM EST POTASSIUM Routine 06/06/2024 10:17 AM EST POC, GLUCOSE Routine 06/06/2024 7:57 AM EST POC, GLUCOSE Routine 06/06/2024 6:53 AM EST HEMOGLOBIN A1C Routine 06/06/2024 3:33 AM EST HEPARIN (UNFRACTIONATED) LEVEL Timed 06/06/2024 3:33 AM EST CBC (WITH DIFF) Routine 06/06/2024 3:33 AM EST MAGNESIUM Routine 06/06/2024 3:33 AM EST BASIC METABOLIC PANEL Routine 06/06/2024 3:33 AM EST POC, GLUCOSE Routine 06/05/2024 10:31 PM EDT SCAN DOC: TELEMETRY STRIPS 06/05/2024 10:07 PM EDT POC, GLUCOSE Routine 06/05/2024 4:22 PM EDT SCAN DOC: TELEMETRY STRIPS 06/05/2024 2:40 PM EDT POC, GLUCOSE Routine 06/05/2024 11:34 AM EDT POTASSIUM Routine 06/05/2024 9:04 AM EDT SCAN DOC: TELEMETRY STRIPS 06/05/2024 8:12 AM EDT POC, GLUCOSE Routine 06/05/2024 7:27 AM EDT HEPARIN (UNFRACTIONATED) LEVEL Timed 06/05/2024 3:44 AM EDT CBC (WITH DIFF) Routine 06/05/2024 3:44 AM EDT MAGNESIUM Routine 06/05/2024 3:44 AM EDT BASIC METABOLIC PANEL Routine 06/05/2024 3:44 AM EDT POTASSIUM Routine 06/04/2024 10:34 PM EDT SCAN DOC: TELEMETRY STRIPS 06/04/2024 10:07 PM EDT POC, GLUCOSE Routine 06/04/2024 7:43 PM EDT SCAN DOC: TELEMETRY STRIPS 06/04/2024 6:21 PM EDT POTASSIUM Routine 06/04/2024 4:35 PM EDT POC, GLUCOSE Routine 06/04/2024 3:26 PM EDT POC, GLUCOSE Routine 06/04/2024 11:09 AM EDT HEPARIN (UNFRACTIONATED) LEVEL Timed 06/04/2024 10:41 AM EDT POTASSIUM Routine 06/04/2024 10:41 AM EDT POC, GLUCOSE Routine 06/04/2024 7:11 AM EDT HEPARIN (UNFRACTIONATED) LEVEL Timed 06/04/2024 4:38 AM EDT CBC (WITH DIFF) Routine 06/04/2024 4:38 AM EDT MAGNESIUM Routine 06/04/2024 4:38 AM EDT BASIC METABOLIC PANEL Routine 06/04/2024 4:38 AM EDT IMPLANTABLE DEVICES SCAN 06/04/2024 12:00 AM EDT HEPARIN (UNFRACTIONATED) LEVEL Timed 06/03/2024 8:58 PM EDT POC, GLUCOSE Routine 06/03/2024 8:05 PM EDT POC, GLUCOSE Routine 06/03/2024 5:[address] CHEST WO CONTRAST (GENERIC) Routine 06/03/2024 4:33 PM EDT CAROTID DUPLEX, BILATERAL Routine 06/03/2024 2:[address] elevation myocardial infarction (STEMI), unspecified artery HEPARIN (UNFRACTIONATED) LEVEL Timed 06/03/2024 12:48 PM EDT POC, GLUCOSE Routine 06/03/2024 11:14 AM EDT TROPONIN-T, HIGH SENSITIVITY 3 HOUR PERFORMABLE STAT 06/03/2024 10:06 AM EDT ECHO COMPLETE W CONTRAST Routine 06/03/2024 8:[address] elevation myocardial infarction (STEMI), unspecified artery TROPONIN-T, HIGH SENSITIVITY 1 HOUR PERFORMABLE STAT 06/03/2024 8:27 AM EDT SCAN DOC: TELEMETRY STRIPS 06/03/2024 8:02 AM EDT POC, GLUCOSE Routine 06/03/2024 7:54 AM EDT TROPONIN-T, HIGH SENSITIVITY INITIAL PERFORMABLE STAT 06/03/2024 7:39 AM EDT TROPONIN - SERIES STAT 06/03/2024 7:3 9 AM EDT TROPONIN-T, HIGH SENSITIVITY 3 HOUR PERFORMABLE STAT 06/03/2024 5:11 AM EDT TROPONIN-T, HIGH SENSITIVITY 1 HOUR PERFORMABLE STAT 06/03/2024 3:07 AM EDT XR CHEST ONE VIEW STAT 06/03/2024 2:4 1 AM EDT ECHOCARDIOGRAM TRANSTHORACIC Routine 06/03/2024 2:23 AM EDT HEPARIN (UNFRACTIONATED) LEVEL Timed 06/03/2024 2:13 AM EDT TROPONIN-T, HIGH SENSITIVITY INITIAL PERFORMABLE STAT 06/03/2024 2:13 AM EDT LIPID PANEL (REFLEX DIRECT LDL) Routine 06/03/2024 2:13 AM EDT HC PARTIAL THROMBOPLASTIN TIME Routine 06/03/2024 2:13 AM EDT PROTHROMBIN TIME Routine 06/03/2024 2:13 AM EDT HEPATIC FUNCTION PANEL Routine 2:13 AM EDT TROPONIN - SERIES STAT 06/03/2024 2:1 3 AM EDT PRO-BRAIN NATRIURETIC PEPTIDE Routine 06/03/2024 2:13 AM EDT PHOSPHORUS Routine 06/03/2024 2:13 AM EDT MAGNESIUM Routine 06/03/2024 2:13 AM EDT BASIC METABOLIC PANEL Routine 06/03/2024 2:13 AM EDT CBC (WITH DIFF) Routine 06/03/2024 2:13 AM EDT EKG 12-LEAD STAT 06/03/2024 1:[address] elevation myocardial infarction (STEMI), unspecified artery SCAN DOC: TELEMETRY STRIPS 06/03/2024 1:13 AM EDT SCAN DOC: TELEMETRY STRIPS 06/03/2024 1:13 AM EDT SCAN DOC: TELEMETRY STRIPS 06/03/2024 1:08 AM EDT CARDIAC CATHETERIZATION Routine 06/03/20 24 12:42 AM EDT POC, GLUCOSE Routine 06/02/2024 11:31 PM EDT [facility] EXTERNAL CARDIOLOGY RESULT Routine 06/02/2024 9:54 PM EDT from Last 3 Months Results * POC, GLUCOSE (07/20/2024 4:31 PM EST) Only the most recent of134 resultswithin the time period is included. [facility] Glucometer, POC 125 65 - 199 mg/dL 07/20/2024 4:31 PM EST [facility] Comment:Supplemental ranges: <140 mg/dL before meals <180 mg/dL all other times of the day. Blood CAPILLARY BLOOD / Unknown 07/20/2024 4:31 PM EST 07/20/2024 4:31 PM EST Wendi Loja MD POINT OF CARE TEST O RDERABLES [facility] [place] [address] * Scan Doc: Telemetry Strips (06/21/2024 7:50 AM EST) Only the most recent of59 resultswithin the time period is included. Narrative 06/21/2024 7:50 AM EST Ordered by an unspecified provider. Scanning Provider MEDIA MGR SCAN EXT O RDR/RSLT * (ABNORMAL) Basic Metabolic Panel (06/21/2024 2:09 AM EST) Only the most recent of20 resultswithin the time period is included. Glucose 169 65 - 199 mg/dL 06/21/2024 3:10 AM EST [facility] Comment:Glucose Concentratio n >=200 mg/dL plus symptoms is consistent with Diabetes Mellitus. Blood Urea Nitrogen 27(H) 10 - 20 mg/dL 06/21/2024 3:10 AM EST [facility] Creatinine 1.24 0.80 - 1.50 mg/dL 06/21/2024 3:10 AM EST [facility] Sodium 138 135 - 145 mMol/L 06/21/2024 3:10 AM EST [facility] Potassium 4.2 3.5 - 5.0 mMol/L 06/21/2024 3:10 AM EST [facility] Chloride 100 98 - 107 mMol/L 06/21/2024 3:10 AM EST [facility] Carbon Dioxide 27 22 - 31 mMol/L 06/21/2024 3:10 AM EST [facility] Anion Gap 11 5 - 15 mMol/L 06/21/2024 3:10 AM [facility] Calcium 8.7 8.5 - 10.5 mg/dL 06/21/2024 3:10 AM [facility] Est Glomerular Filtration Rate - Male 64 mL/min/1. 73 m?? 06/21/2024 3:10 AM EST [facility] Comment: This patient's estimated GFR was calculated using the 2020 CKD-EPI equation. The estimated GFR can vary from the measured GFR by up to 30% in the absence of rapidly changing kidney function. Assessment of the estimated GFR is not appropriate when creatinine concentrations are rapidly changing. For clinical situations in which a more precise estimate of GFR is necessary, consider alternative methods of GFR estimation such as a 24-hour urine creatinine clearance. Assignment of CKD stage 1 - 5 for patients with an eGFR near the transition point between stages may be based on clinical assessment of muscle mass and symptoms in addition to eGFR. Link: eGFR Calculator [employer] Blood VENOUS BLOOD SPECIMEN / Unknown Venipuncture / Unknown 06/21/2024 2:09 AM EST 06/21/2024 2:37 AM EST Keila Dayan CHOU CHEMISTRY ORDERABL ES [facility] [place] [address] * XR Chest PA & Lateral (Generic) (06/17/2024 1:46 PM EST) Only the most recent of2 resultswithin the time period is included. [email or web address] WORKSTATION ID [id number] RAD Anatomical Region Laterality Modality Chest N/A Digital Radiogra phy Impressions 06/17/2024 4:49 PM EST Status post CABG. New LEFT mid lung platelike atelectasis. No pneumothorax no significant pleural fluid. Thank you for letting us participate in the care of this patient. ??If you are a health care provider and have any questions regarding this report, please contact the number below. ??For patients who have questions please contact the health assurance services manager health care that requested your imaging first. ? Electronically signed by: Josselyn Spence MD, [facility] ([phone]), at 06/17/2024 4:49 PM Narrative 06/17/2024 4:49 PM EST EXAMINATION: XR CHEST PA AND LATERAL (GENERIC) CLINICAL HISTORY: s/p cabg TECHNIQUE: PA and lateral views of the chest COMPARISON: 06/15/2024 FINDINGS: Patient is status post CABG. The pulmonary artery catheter has been removed. Mediastinal chest tubes have been removed. Patient is status post median sternotomy with LEFT atrial appendage exclusion device. Biventricular ICD leads remain in place. Cardiac contour remains enlarged. There is platelike atelectasis extending from the LEFT hilum. No significant pleural fluid. Pneumothorax. Procedure Note Josselyn Spence MD - 06/17/2024 EXAMINATION: XR CHEST PA AND LATERAL (GENERIC) CLINICAL HISTORY: s/p cabg TECHNIQUE: PA and lateral views of the chest COMPARISON: 06/15/2024 FINDINGS: Patient is status post CABG. The pulmonary artery catheter has beenremoved. Mediastinal chest tubes have been removed. Patient is status post median sternotomy with LEFT atrial appendageexclusion device. Biventricular ICD leads remain in place. Cardiac contour remains enlarged. There is platelike atelectasis extending from the LEFT hilum. Nosignificant pleural fluid. Pneumothorax. IMPRESSION Status post CABG. New LEFT mid lung platelike atelectasis. No pneumothoraxno significant pleural fluid. Thank you for letting us participate in the care of this patient. If youare a health care provider and have any questions regarding this report,please contact the number below. For patients who have questions please contactthe health assurance services manager health care that requested your imaging first. Electronically signed by: Josselyn Spence MD, [facility]([phone]), at 06/17/2024 4:49 PM Keila Hanley APRN IMG DX ORDERABLES * (ABNORMAL) Hemogram (06/17/2024 2:39 AM EST) Only the most recent of2 resultswithin the time period is included. White Blood Cell 13.53(H) 4.00 - 9.50 x10(3)/mc L 06/17/2024 2:53 AM [facility] Red Blood Cell 3.55(L) 4.58 - 5.54 x10(6)/mc L 06/17/2024 2:53 AM [facility] Hemoglobin 10.8(L) 13.7 - 16.5 g/dL 06/17/2024 2:53 AM [facility] Hematocrit 33.0(L) 40.5 - 48.5 % 06/17/2024 2:53 AM [facility] Mean Cell Volume 93.0 82.9 - 93.1 fL 06/17/2024 2:53 AM [facility] Mean Cell Hemoglobin 30.4 27.5 - 32.1 pg 06/17/2024 2:53 AM [facility] Mean Cell Hemoglobin Concentration 32.7 32.0 - 35.7 g/dL 06/17/2024 2:53 AM [facility] Platelet 101(L) 145 - 357 x10(3)/mc L 06/17/2024 2:53 AM [facility] Mean Platelet Volume 10.4 7.6 - 12.9 fL 06/17/2024 2:53 AM [facility] RDW Standard Deviation 48.4(H) 36.0 - 45.0 fL 06/17/2024 2:53 AM [facility] RDW coefficient of variation 14.1(H) 11.4 - 13.8 % 06/17/2024 2:53 AM [facility] NRBC% auto 0.0 % 06/17/2024 2:53 AM [facility] NRBC Absolute <0.01 <0.01 x10(3)/mc L 06/17/2024 2:53 AM [facility] Blood VENOUS BLOOD SPECIMEN / Unknown Venipuncture / Unknown 06/17/2024 2:39 AM EST 06/17/2024 2:43 AM EST Wendi Loja MD HEMATOLOGY ORDERABLE S Performing Organization Address City/[facility]/ZIP Co de Phone Number [facility] [place] [address] * Lactate, Whole Blood (06/17/2024 2:39 AM EST) Only the most recent of3 resultswithin the time period is included. Lactate, Whole Blood 1.3 0.5 - 2.2 mmol/L 06/17/2024 2:46 AM EST [facility] Blood VENOUS BLOOD SPECIMEN / Unknown Venipuncture / Unknown 06/17/2024 2:39 AM EST 06/17/2024 2:43 AM EST Wendi Loja MD CHEMISTRY ORDERABLES Performing Organization Address [facility] Co de Phone Number [facility] [place] [address] * (ABNORMAL) Cooximetry, POC (06/15/2024 9:31 AM EST) Only the most recent of5 resultswithin the time period is included. pO2, Coox 38 mmHg 06/15/2024 9:34 AM [facility] Hemoglobin, Coox 12.9(L) 13.7 - 16.5 g/dL 06/15/2024 9:34 AM [facility] Oxyhemoglobin, Coox 72.1 % 06/15/2024 9:34 AM [facility] Carboxyhemoglo bin, Coox 0.9 % 06/15/2024 9:34 AM [facility] Comment: Nonsmokers: 0.5-1.5% COHB ?? Smokers: Variable ??but usually less than 10% ?? Toxic: 20-30% COHB ?? Lethal: Greater than 60% COHB Methemoglobin, Coox 0.3 <=1.5 % 06/15/2024 9:34 AM EST [facility] Blood (Mixed Venous) 06/15/2024 9:31 AM EST 06/15/2024 9:34 AM EST Wendi Loja MD POINT OF CARE TEST O RDERABLES [facility] [place] [address] * (ABNORMAL) Blood Gas, Arterial POC (06/15/2024 9:19 AM EST) Only the most recent of12 resultswithin the time period is included. pH, Arterial 7.31(L) 7.35 - 7.45 06/15/2024 9:21 AM [facility] PCO2, Arterial 36 35 - 45 mmHg 06/15/2024 9:21 AM [facility] PO2, Arterial 94 85 - 104 mmHg 06/15/2024 9:21 AM [facility] Bicarbonate, Arterial 18.0(L) 20.0 - 26.0 mmol/L 06/15/2024 9:21 AM [facility] Base Excess, Arterial -8.2(L) -3.0 - 3.0 mmol/L 06/15/2024 9:21 AM [facility] Hemoglobin, Arterial 12.7(L) 13.7 - 16.5 g/dL 06/15/2024 9:21 AM [facility] Oxyhemoglobin, Arterial 96.0 94.0 - 97.0 % 06/15/2024 9:21 AM [facility] Carboxyhemoglobin , Arterial 0.5 % 06/15/2024 9:21 AM [facility] Comment: Nonsmokers: 0.5-1.5% COHB ?? Smokers: Variable ??but usually less than 10% ?? Toxic: 20-30% COHB ?? Lethal: Greater than 60% COHB Methemoglobin, Arterial 0.3 <=1.5 % 06/15/2024 9:21 AM [facility] Sodium, Arterial 136 135 - 145 mmol/L 06/15/2024 9:21 AM [facility] Potassium, Arterial 4.0 3.5 - 5.0 mmol/L 06/15/2024 9:21 AM EST [facility] Chloride, Arterial 106 98 - 107 mmol/L 06/15/2024 9:21 AM EST [facility] Lactate, Arterial 1.7 0.5 - 2.2 mmol/L 06/15/2024 9:21 AM EST [facility] Flow Rate 2.0 L/min 06/15/2024 9:21 AM EST [facility] IONIZED CALCIUM, ARTERIAL 1.14(L) 1.15 - 1.33 mmol/L 06/15/2024 9:21 AM EST [facility] Glucose, Arterial 193 65 - 199 mg/dL 06/15/2024 9:21 AM EST [facility] Comment:Glucose Concentratio n >=200 mg/dL plus symptoms is consistent with Diabetes Mellitus. Blood ARTERIAL BLOOD / Unknown 06/15/2024 9:19 AM EST 06/15/2024 9:20 AM EST Wendi Loja MD POINT OF CARE TEST O RDERABLES [facility] [place] [address] * XR Chest One View (06/15/2024 6:31 AM EST) Only the most recent of4 resultswithin the time period is included. WORKSTATION ID [id number] RAD Anatomical Region Laterality Modality Chest N/A Digital Radiogra phy Impressions 06/15/2024 10:38 AM EST Status post CABG. No pulmonary edema. No pleural effusion or pneumothorax. Thank you for letting us participate in the care of this patient. ??If you are a health care provider and have any questions regarding this report, please contact the number below. ??For patients who have questions please contact the health assurance services manager health care that requested your imaging first. ? Electronically signed by: Stuart Aponte MD, [facility] ??([phone]), at 06/15/2024 10:38 AM Narrative 06/15/2024 10:38 AM EST EXAMINATION: XR CHEST ONE VIEW CLINICAL HISTORY: pod1 cabg TECHNIQUE: 1 view of the chest COMPARISON: 06/14/2024 FINDINGS: Lines and tubes: Intra-aortic balloon pump marker is no longer visualized. Slight retraction of pulmonary artery catheter which still projects in the right interlobar pulmonary artery. Mediastinal chest tubes remain in place Status post sternotomy and CABG with left atrial appendage exclusion clip. Biventricular ICD leads remain in place. No pulmonary edema. No pleural effusion or pneumothorax. Procedure Note Stuart Aponte MD - 06/15/2024 EXAMINATION: XR CHEST ONE VIEW CLINICAL HISTORY: pod1 cabg TECHNIQUE: 1 view of the chest COMPARISON: 06/14/2024 FINDINGS: Lines and tubes: Intra-aortic balloon pump marker is no longervisualized. Slight retraction of pulmonary artery catheter which still projects in theright interlobar pulmonary artery. Mediastinal chest tubes remain in place Status post sternotomy and CABG with left atrial appendage exclusionclip. Biventricular ICD leads remain in place. No pulmonary edema. No pleural effusion or pneumothorax. IMPRESSION Status post CABG. No pulmonary edema. No pleural effusion orpneumothorax. Thank you for letting us participate in the care of this patient. If youare a health care provider and have any questions regarding this report,please contact the number below. For patients who have questions please contactthe health assurance services manager health care that requested your imaging first. Electronically signed by: Stuart Aponte MD, [facility]([phone]), at 06/15/2024 10:38 AM Wendi Loja MD IMG DX ORDERABLES * (ABNORMAL) Troponin - Single (06/15/2024 1:48 AM EST) [facility] Troponin-T, High Sensitivity 667(H) <=22 ng/L 06/15/2024 2:22 AM EST [facility] Comment: This patient's troponin T concentration was determined using the [employer] 5th Generation troponin T assay. According to the fourth universal definition of myocardial infarction, the term acute myocardial infarction should be used when there is acute myocardial injury with clinical evidence of acute myocardial ischemia and with detection of a rise and/or fall of cardiac troponin values with at least one value above the 99th percentile and at least one of the following: - Symptoms of myocardial ischemia; - New ischemic ECG changes; - Development of pathological Q waves; - Imaging evidence of new loss of viable myocardium or new regional wall motion ?? abnormality in a pattern consistent with an ischemic etiology; - Identification of a coronary thrombus by angiography or autopsy (not for type 2 or 3 ?? MIs) Serial measurement of troponin and the change in troponin concentration over time (delta) is crucial for the diagnosis of acute myocardial infarction. Guidance on the interpretation of the new 5th Generation Troponin T values and the delta troponin value can be found in the [facility] Test Catalog Troponin - [email or web address]/files/08382 Reference: Fourth [place] Definition of Myocardial Infarction. Journal of the [place] [employer] 2018;72:1108-1955 Blood VENOUS BLOOD SPECIMEN / Unknown Venipuncture / Unknown 06/15/2024 1:48 AM EST 06/15/2024 1:52 AM EST Wendi Loja MD CHEMISTRY ORDERABLES [facility] [place] [address] * (ABNORMAL) CBC (with Diff) (06/15/2024 1:48 AM EST) Only the most recent of13 resultswithin the time period is included. [facility] White Blood Cell 11.71(H) 4.00 - 9.50 x10(3)/mc L 06/15/2024 2:13 AM EST [facility] Red Blood Cell 4.14(L) 4.58 - 5.54 x10(6)/mc L 06/15/2024 2:13 AM [facility] Hemoglobin 12.5(L) 13.7 - 16.5 g/dL 06/15/2024 2:13 AM [facility] Hematocrit 38.4(L) 40.5 - 48.5 % 06/15/2024 2:13 AM [facility] Mean Cell Volume 92.8 82.9 - 93.1 fL 06/15/2024 2:13 AM [facility] Mean Cell Hemoglobin 30.2 27.5 - 32.1 pg 06/15/2024 2:13 AM [facility] Mean Cell Hemoglobin Concentration 32.6 32.0 - 35.7 g/dL 06/15/2024 2:13 AM [facility] Platelet 101(L) 145 - 357 x10(3)/mc L 06/15/2024 2:13 AM [facility] Mean Platelet Volume 10.0 7.6 - 12.9 fL 06/15/2024 2:13 AM [facility] RDW Standard Deviation 48.8(H) 36.0 - 45.0 fL 06/15/2024 2:13 AM [facility] RDW coefficient of variation 14.2(H) 11.4 - 13.8 % 06/15/2024 2:13 AM [facility] NRBC% auto 0.0 % 06/15/2024 2:13 AM [facility] NRBC Absolute <0.01 <0.01 x10(3)/mc L 06/15/2024 2:13 AM [facility] Neutrophil % 79.7 % 06/15/2024 2:13 AM [facility] Neutrophil Absolute (ANC) - Automated 9.34(H) 1.70 - 6.10 x10(3)/mc L 06/15/2024 2:13 AM [facility] Lymph % 8.0 % 06/15/2024 2:13 AM [facility] Lymph Absolute 0.94 0.90 - 3.20 x10(3)/mc L 06/15/2024 2:13 AM EST [facility] Monocyte % 11.4 % 06/15/2024 2:13 AM [facility] Monocyte Absolute 1.33(H) 0.30 - 0.90 x10(3)/mc L 06/15/2024 2:13 AM EST [facility] Eos % 0.2 % 06/15/2024 2:13 AM EST [facility] Eos Absolute <0.04 0.00 - 0.40 x10(3)/mc L 06/15/2024 2:13 AM EST [facility] Basophil % 0.2 % 06/15/2024 2:13 AM [facility] Baso Absolute <0.04 0.00 - 0.10 x10(3)/mc L 06/15/2024 2:13 AM [facility] Immature Gran % 0.5 % 2:13 AM [facility] Immature Gran Absolute 0.06(H) 0.00 - 0.04 x10(3)/mc L 06/15/2024 2:13 AM [facility] Blood VENOUS BLOOD SPECIMEN / Unknown Venipuncture / Unknown 06/15/2024 1:48 AM EST 06/15/2024 1:52 AM EST Wendi Loja MD HEMATOLOGY ORDERABLE S [facility] [place] [address] * Potassium (06/14/2024 11:28 PM EST) Only the most recent of13 resultswithin the time period is included. Potassium 4.1 3.5 - 5.0 mMol/L 06/14/2024 11:54 PM EST [facility] Blood VENOUS BLOOD SPECIMEN / Unknown Venipuncture / Unknown 06/14/2024 11:28 PM EST 06/14/2024 11:34 PM EST Wendi Loja MD CHEMISTRY ORDERABLES [facility] [place] [address] * (ABNORMAL) Hemoglobin (06/14/2024 6:19 PM EST) Pathologist [facility] Hemoglobin 13.1(L) 13.7 - 16.5 g/dL 06/14/2024 7:08 PM EST [facility] Blood VENOUS BLOOD SPECIMEN / Unknown Venipuncture / Unknown 06/14/2024 6:19 PM EST 06/14/2024 6:28 PM EST Wendi Loja MD HEMATOLOGY ORDERABLE S Performing Organization Address [facility]/ZIP Co de Phone Number [facility] [place] [address] * EKG 12 Lead (06/14/2024 2:46 PM EST) Only the most recent of2 resultswithin the time period is included. [facility] Ventricular rate 80 BPM MUSE SYSTEM Atrial Rate 80 BPM MUSE SYSTEM P-R Interval 120 ms MUSE SYSTEM QRS Duration 108 ms MUSE SYSTEM Q-T Interval 454 ms MUSE SYSTEM QTC Calculated (Bezet) 523 ms MUSE SYSTEM Calculated P Mobile 70 degrees MUSE SYSTEM Calculated R Mobile 56 degrees MUSE SYSTEM Calculated T Mobile 50 degrees MUSE SYSTEM INTERPRETATION AV dual-paced rhythm Abnormal ECG When compared with ECG of 03-JUN-2024 01:45, Vent. rate has increased BY ??17 BPM Confirmed by MD Marislo, Shaheen ([id number]) on 06/15/2024 1:57:23 PM MUSE SYSTEM 06/14/2024 2:46 PM EST 06/15/2024 1:57 PM EST Wendi Loja MD ECG ORDERABLES Performing Organization Address City/[facility]/ZIP Co de Phone Number MUSE SYSTEM * Prepare RBC (06/14/2024 2:27 PM EST) Pathologist [facility] Status Information Returned [facility] Product Identification RBC [facility] Unit Number [id number] [facility] Product Code [id number] [facility] Unit Blood Type OPOS [facility] Specimen Expiration Date [facility] Volulme 350 [facility] Issue Date / Time [facility] Status Information Returned [facility] Product Identification RBC [facility] Unit Number [id number] [facility] Product Code [id number] [facility] Unit Blood Type OPOS [facility] Specimen Expiration Date [facility] Volulme 350 [facility] Issue Date / Time [facility] Blood 06/14/2024 6:2 5 AM EST Haja Byrnes MD BLOOD BANK PRODUCT O RDERABLES Performing Organization Address City/[facility]/ZIP Co de Phone Number [facility] [place] [address] * (ABNORMAL) Platelet count (06/14/2024 12:30 PM EST) Only the most recent of2 resultswithin the time period is included. Pathologist [facility] Platelet 73(L) 145 - 357 x10(3)/mcL 06/14/2024 12:54 PM EST [facility] Blood ARTERIAL BLOOD / Unknown 06/14/2024 12:30 PM EST Comment:Pre-op diagnosis: CAD Wendi Loja MD HEMATOLOGY ORDERABLE S Performing Organization Address City/[facility]/ZIP Co de Phone Number [facility] [place] [address] * (ABNORMAL) Hemoglobin and Hematocrit, blood (06/14/2024 12:30 PM EST) Only the most recent of2 resultswithin the time period is included. Hemoglobin 10.9(L) 13.7 - 16.5 g/dL 06/14/2024 12:54 PM EST [facility] Hematocrit 33.5(L) 40.5 - 48.5 % 06/14/2024 12:54 PM EST [facility] Comment:This result has been called to Danielle López by Satya Page on 06/14/2024 12:53:56, and has been read back. Blood ARTERIAL BLOOD / Unknown 06/14/2024 12:30 PM EST 06/14/2024 12:42 PM EST Comment:Pre-op diagnosis: CAD Wendi Loja MD HEMATOLOGY ORDERABLE S Performing Organization Address [facility] Co de Phone Number [facility] [place] [address] * APTT (06/14/2024 12:30 PM EST) Only the most recent of2 resultswithin the time period is included. Partial Thromboplastin Time 31 25 - 37 sec 06/14/2024 12:57 PM EST [facility] Comment: The PTT is NOT appropriate for heparin monitoring. Use the Anti-Xa level for heparin monitoring (HEP UFH) or LMWH monitoring (HEP LMW). A PTT less than 37 seconds generally indicates adequate hemostasis. Blood ARTERIAL BLOOD / Unknown 06/14/2024 12:30 PM EST 06/14/2024 12:42 PM EST Comment:Pre-op diagnosis: CAD Wendi Loja MD HEMATOLOGY ORDERABLE S Performing Organization Address City/[facility]/ZIP Co de Phone Number [facility] [place] [address] * (ABNORMAL) Prothrombin Time (06/14/2024 12:30 PM EST) Only the most recent of2 resultswithin the time period is included. Prothrombin Time 16.8(H) 9.4 - 12.5 sec 06/14/2024 12:57 PM EST [facility] International Normalization Ratio 1.5 <=4.9 06/14/2024 12:57 PM EST [facility] Comment: An INR < 2.0 indicates adequate procoagulant activity for hemostasis in most patients without underlying bleeding disorders, though the INR may not adequately reflect hemostatic capacity in patients with liver disease and synthetic impairment. The recommended target INR range for therapeutic anticoagulation is 2.0 - 3.0 for most applications, though lower and higher ranges may be appropriate depending on clinical circumstances. Blood ARTERIAL BLOOD / Unknown 06/14/2024 12:30 PM EST 06/14/2024 12:42 PM EST Comment:Pre-op diagnosis: CAD Wendi Loja MD HEMATOLOGY ORDERABLE S Performing Organization Address [facility]/ZIP Co de Phone Number [facility] [place] [address] * Fibrinogen (06/14/2024 12:30 PM EST) Fibrinogen 211 200 - 393 mg/dL 06/14/2024 12:57 PM EST [facility] Comment: A fibrinogen level >100 mg/dL is adequate for hemostasis in most patients without underlying bleeding disorders. Blood ARTERIAL BLOOD / Unknown 06/14/2024 12:30 PM EST 06/14/2024 12:42 PM EST Comment:Pre-op diagnosis: CAD Wendi Loja MD HEMATOLOGY ORDERABLE S Performing Organization Address [facility] Co de Phone Number [facility] [place] [address] * (ABNORMAL) Scan, Peripheral Blood (06/14/2024 11:23 AM EST) RBC Morphology Abnormal 06/14/2024 11:59 AM EST [facility] Platelet Estimate Decreased(A) Normal 06/14/2024 11:59 AM EST [facility] Aretha cells 1-5 /HPF 06/14/2024 11:59 AM EST [facility] Blood ARTERIAL BLOOD / Unknown 06/14/2024 11:23 AM EST 06/14/2024 11:27 AM EST Wendi Loja MD HEMATOLOGY ORDERABLE S [facility] [place] [address] * Surgical Pathology (06/14/2024 9:53 AM EST) Case Report Surgical Pathology Report ? Case: [id number] ? Authorizing Provider: ??Wendi Loja MD ? Collected: ? 06/14/2024 0953 ? Ordering Location: ? Main Operating Room [facility]en ?? Received: ?06/14/2024 1413 ? [facility] ? Hospital ? Pathologist: ? Sandra Salas MD ? Specimens: ?? A) - Soft Tissue Mass, mediastinal mass ? B) - Heart, Atrial Appendage, Left ? 06/18/2024 10:18 AM [facility] Final Diagnosis A. Soft Tissue Mass, Mediastinal Mass, Excision: - Atrophic thymic tissue B. Heart, Atrial Appendage, Left, Excision: - Mild myocyte hypertrophy 06/18/2024 10:18 AM [facility] Clinical Information A. Soft Tissue Mass, mediastinal mass Soft tissue mass Mediastinal mass B. Heart, Atrial Appendage, Left, *Other - as specified in Clinical Information MARIALUISA 06/18/2024 10:18 AM [facility] Gross Description A. Soft Tissue Mass, mediastinal mass. A - Labeled/Fixative : Mediastinal mass, fresh. Quantity/Size: Single, 7.2 x 5.3 x 1.2 cm. Tissue Description: Unoriented, intact portion of soft, rodriguez-yellow, lobulated tissue. The cut surface is homogenously pale-rodriguez, yellow and lobulated. No lesions or nodules are identified. Inking: External surface inked black Sections/Process ing: Forest Supervisor sections in 4 cassettes labeled A1-A4. cmk B. Heart, Atrial Appendage, Left, . B - Labeled/Fixative : Heart, atrial appendage, left, fresh. Quantity/Size: Single, 3.3 x 1.5 x 0.8 cm. Tissue Description: Portion of heart tissue consisting of rodriguez-white, semitranslucent, smooth endocardium with rodriguez-brown muscular myocardium and thin translucent epicardium with adherent adipose tissue. No areas of discoloration identified. Sections/Process ing: Forest Supervisor sections in 1 cassette labeled B1. cmk 06/18/2024 10:18 AM [facility] Result Note Routine 06/18/2024 10:18 AM EST [facility] Tissue SOFT TISSUE MASS / Unknown 06/14/2024 9:53 AM EST 06/14/2024 2:13 PM EST Comment:Mediastinal mass Tissue specimen (specimen) LEFT ATRIAL APPENDAGE ABSENT / Unknown 06/14/2024 10:54 AM EST 06/14/2024 2:13 PM EST Comment:MARIALUISA Wendi Loja MD PATHOLOGY/CYTOLOGY O RDERABLES [facility] [place] [address] * Transesophageal Echo/OR (06/14/2024 7:20 AM EST) Anatomical Region Laterality Modality Cardiac Other 06/14/2024 7:20 AM EST Narrative 06/14/2024 4:36 PM EST Version: 2 Study ID: [id number] [address] [place] [address] ?OR Transesophageal Echo Report Name: GEORGE MEHTA Raad ? Study Date: 06/14/2024, 7: 20 AM ?Patient Location: ^OR16^A : 1955 Age: 69 Years Gender: Male Ordering Physician: WENDI LOJA Referring Physician: NEHAL QUINTERO ?Conclusions This KAREN is done at the request of CT surgery for evaluation and monitoring during inpatient CABG surgery. There is a moderately dilated left ventricle with LVEF calculated at 25-28%. LV function is severely reduced. There is an IABP in good position. After bypass on 3-4 mcg.kg/min dobutamine and IABP support there LVEF is improved to 30-35% with improved function of the anterior fofana in particular. The RIJ is guided by KAREN. The aortic cannula and cross clamp site are guided by Epi-aortic ultrasound. 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 THere is no MARIALUISA thrombus and good velocity therein. This surgeon was made aware of this mass after consultation with other director of sustainable design experts and the decision was made by surgeon to explore the mass. There is no significant valvular disease. Pre Procedure Echocardiogram, transesophageal, real-time with image documentation (2D) including image acquisition, interpretation, and report. Informed consent from the patient in writing. The risks and benefits of the procedure were explained in detail to the patient, including but not limited to the risk of aspiration, dysphagia, and esophageal perforation. Patient agreed to proceed. Satisfactory quality. Informed consent from the patient surrogate in writing. The risks and benefits of the procedure were explained in detail to the patient, including but not limited to the risk of aspiration, dysphagia, and esophageal perforation. Surrogate signed consent. Patient under general endotracheal anesthesia. A bite block was placed. The probe was passed without difficulty. No complications were noted on placement or removal of the probe. Real time ultrasound guided central line insertion performed for the Right-IJ vein. A linear probe was used with a sterile sheath. The artery and vein were identified prior to vessel puncture. The guidewire was visualized in the RA via KAREN prior to dilation and cannulation. Vital signs monitored throughout. Please see anesthesia record. Pre Left Ventricle Left ventricle is mild to moderately dilated. The left ventricular ejection fraction is 25-28%% by Matos's biplane. Multiple wall motion abnormalities are identified. Pre Right Ventricle The right ventricle is of normal size. Right ventricular systolic function is normal. Pre Atria Left atrium is of normal size. There is a possible mass in the left atrium. There is a narrowing at the orifice of the left atrial appendage that has fibrinous extensions. No abnormality of the interatrial septum is identified. There is no evidence for a patent foramen ovale. The right atrium is not well visualized. A catheter is present in the right atrium. there are 3 total leads, one in coronary sinus, one to the RV and one to the RA. Pre Aortic Valve The aortic valve is tricuspid. There is trace aortic regurgitation. There is no evidence for aortic stenosis. Pre Mitral Valve The mitral valve is structurally normal. There is mild mitral regurgitation. The estimated mean gradient across the mitral valve is 2 mmHg. The peak gradient across the mitral valve is 5 mmHg. When the IABP is on hold prebypass, the MR is increased, but still mild. Pre Tricuspid Valve The tricuspid valve is structurally normal. There is mild tricuspid regurgitation. Pre Pulmonic Valve The pulmonic valve is not well visualized. Pre Aorta An intra aortic balloon pump is present. IABP in good position. Pre Miscellaneous There is no pericardial effusion. Post Procedure Patient is s/p 3-vessel CABG. Post Left Ventricle The left ventricular ejection fraction is 30-35 % by Matos's biplane. Multiple wall motion abnormalities are identified. The anterior wall is improved. Post Aortic Valve No changes from pre-bypass exam. Post Mitral Valve No changes from pre-bypass exam. Post Tricuspid Valve No changes from pre-bypass exam. Post Aorta There is no evidence of post bypass changes to the descending aorta. Other Measurements & Calculations Ao Max Darrius: 106.6 cm/sec ?Ao mean velocity: 74.5 cm/sec Ao V2 VTI: 21.3 cm Ao valve max: 4.6 mmHg ? Ao valve mean: 2.7 mmHg ? AV VR_phl: 0.76 JA(I,D): 2.32 cm? Dimensionless index Aov: 0.72 ?? EDV(MOD-sp2): 83.7 ml EDV(MOD-sp4): 81.3 ml ?ESV(MOD-sp2): 60.2 ml ? ESV(MOD-sp4): 47.2 ml LV Biplane EF: 31.1 % ?LV Stroke Volume: 48.0 ml ? LVLd ap2: 9.0 cm LVLd ap4: 9.0 cm ?LVLs ap2: 8.6 cm ? LVLs ap4: 7.6 cm LVOT area(traced): 3.1 cm? LVOT diam: 2.03 cm ? LVOT max Velocity: 81.6 cm/sec MV max P.0 mmHg ?MV mean P.18 mmHg ? MV V2 max: 111.8 cm/sec MV V2 mean: 67.0 cm/sec ?MV V2 VTI: 29.2 cm ? MVA(VTI): 1.70 cm?? SV(LVOT): 49.6 ml ? SV(MOD- sp2): 23.5 ml ? SV(MOD-sp4): 34.1 ml I ? WMSI ??= ??2.31 ? % Normal ??= ?? 0% X -Cannot Interpret 1 - Normal ? 2 - Hypokinetic ??3 -Akinetic ?4 -Dyskinetic 5 -Aneurysmal ? Segments ? Size 1-2 ?small 3-5 ?moderate 6-14 ?large 15-16 ?diffuse Reading Physician ?Hosea Ardon MD ? 06/14/2024, 4: 38 PM Procedure Note Hosea Ardon MD - 06/14/2024 Version: 2 Study ID: [id number] [address] [place] [address] ORTransesophageal Echo Report Name: GEORGE MEHTA Study Date: 06/14/2024,7: 20 AM Patient Location:^AK16^A : 1955 Age: 69 Years Gender: Male Ordering Physician: WENDI LOJA Referring Physician: NEHAL QUINTERO Conclusions This KAREN is done at the request of CT surgery for evaluation andmonitoring during inpatient CABG surgery. There is a moderately dilated left ventricle with LVEF calculated at25-28%. LV function is severely reduced. There is an IABP in good position. After bypass on 3-4 mcg.kg/min dobutamine and IABP support there LVEF isimproved to 30-35% with improved function of the anterior fofana in particular. The RIJ is guided by KAREN. The aortic cannula and cross clamp site areguided by Epi-aortic ultrasound. An unusual fibrinous mass was note at the oriffice of the left atrialappendage. THere is no MARIALUISA thrombus and good velocity therein. This surgeon was madeaware of this mass after consultation with other director of sustainable design experts and thedecision was made by surgeon to explore the mass. There is no significant valvular disease. Pre Procedure Echocardiogram, transesophageal, real-time with image documentation (2D)including image acquisition, interpretation, and report. Informed consent from thepatient in writing. The risks and benefits of the procedure were explained indetail to the patient, including but not limited to the risk of aspiration,dysphagia, and esophageal perforation. Patient agreed to proceed. Satisfactory quality.Informed consent from the patient surrogate in writing. The risks and benefits ofthe procedure were explained in detail to the patient, including but notlimited to the risk of aspiration, dysphagia, and esophageal perforation. Surrogatesigned consent. Patient under general endotracheal anesthesia. A bite block wasplaced. The probe was passed without difficulty. No complications were noted onplacement or removal of the probe. Real time ultrasound guided central lineinsertion performed for the Right-IJ vein. A linear probe was used with a sterile sheath. The artery and vein were identified priorto vessel puncture. The guidewire was visualized in the RA via KAREN prior todilation and cannulation. Vital signs monitored throughout. Please see anesthesiarecord. Pre Left Ventricle Left ventricle is mild to moderately dilated. The left ventricularejection fraction is 25-28%% by Matos's biplane. Multiple wall motionabnormalities are identified. Pre Right Ventricle The right ventricle is of normal size. Right ventricular systolic functionis normal. Pre Atria Left atrium is of normal size. There is a possible mass in the leftatrium. There is a narrowing at the orifice of the left atrial appendage that hasfibrinous extensions. No abnormality of the interatrial septum is identified. Thereis no evidence for a patent foramen ovale. The right atrium is not wellvisualized. A catheter is present in the right atrium. there are 3 total leads, one incoronary sinus, one to the RV and one to the RA. Pre Aortic Valve The aortic valve is tricuspid. There is trace aortic regurgitation. Thereis no evidence for aortic stenosis. Pre Mitral Valve The mitral valve is structurally normal. There is mild mitralregurgitation. The estimated mean gradient across the mitral valve is 2 mmHg. The peakgradient across the mitral valve is 5 mmHg. When the IABP is on hold prebypass, theMR is increased, but still mild. Pre Tricuspid Valve The tricuspid valve is structurally normal. There is mild tricuspidregurgitation. Pre Pulmonic Valve The pulmonic valve is not well visualized. Pre Aorta An intra aortic balloon pump is present. IABP in good position. Pre Miscellaneous There is no pericardial effusion. Post Procedure Patient is s/p 3-vessel CABG. Post Left Ventricle The left ventricular ejection fraction is 30-35 % by Matos's biplane.Multiple wall motion abnormalities are identified. The anterior wall is improved. Post Aortic Valve No changes from pre-bypass exam. Post Mitral Valve No changes from pre-bypass exam. Post Tricuspid Valve No changes from pre-bypass exam. Post Aorta There is no evidence of post bypass changes to the descending aorta. Other Measurements & Calculations Ao Max Darrius: 106.6 cm/sec Ao mean velocity: 74.5cm/sec Ao V2 VTI: 21.3 cm Ao valve max: 4.6 mmHg Ao valve mean: 2.7mmHg AV VR_phl: 0.76 JA(I,D): 2.32 cm?? Dimensionless indexAov: 0.72 EDV(MOD-sp2): 83.7 ml EDV(MOD-sp4): 81.3 ml ESV(MOD-sp2): 60.2 ml ESV(MOD-sp4): 47.2 ml LV Biplane EF: 31.1 % LV Stroke Volume: 48.0ml LVLd ap2: 9.0 cm LVLd ap4: 9.0 cm LVLs ap2: 8.6 cm LVLs ap4: 7.6 cm LVOT area(traced): 3.1 cm?? LVOT diam: 2.03 cm LVOT max Velocity: 81.6 cm/sec MV max P.0 mmHg MV mean P.18 mmHg MV V2 max: 111.8 cm/sec MV V2 mean: 67.0 cm/sec MV V2 VTI: 29.2 cm MVA(VTI): 1.70 cm?? SV(LVOT): 49.6 ml SV(MOD-sp2): 23.5 ml SV(MOD-sp4): 34.1 ml I WMSI = 2.31 % Normal = 0% X -Cannot Interpret 1 - Normal 2 - Hypokinetic 3 -Akinetic 4-Dyskinetic 5 -Aneurysmal Segments Size 1-2 small 3-5 moderate 6-14 large 15-16 diffuse Reading Physician Hosea Ardon MD 06/14/2024, 4: 38 PM Wendi Loja MD ECHO ORDERABLES * (ABNORMAL) Heparin (unfractionated) Level (06/14/2024 12:12 AM EST) Only the most recent of16 resultswithin the time period is included. UF Heparin 1.02(HHH) IU/mL 06/14/2024 12:46 AM EST [facility] Comment: Heparin (anti-Xa) levels should be determined in a plasma sample that has been drawn 6 hours after a dose change to approximate steady-state for continuous heparin infusions. Indication specific Heparin (anti-Xa) levels based on order set selection: Acute DVT or PE prevention: ? 0.3-0.7 IU/mL Thrombosis Prevention (e.g. atrial fibrillation, clarence-procedural bridging, mechanical valves): ? 0.3-0.7 IU/mL Acute Coronary Syndrome: ? 0.3-0.7 IU/mL Stroke Indications: ? 0.3-0.5 IU/mL Ultra-low intensity (select indications in cardiac surgery): ? 0.1-0.3 IU/mL Blood VENOUS BLOOD SPECIMEN / Unknown Venipuncture / Unknown 06/14/2024 12:12 AM EST 06/14/2024 12:29 AM EST Shahnaz Mares MD HEMATOLOGY ORDERABLE S [facility] [place] [address] * Magnesium (06/14/2024 12:12 AM EST) Only the most recent of12 resultswithin the time period is included. Magnesium 0.74 0.69 - 1.07 mMol/L 06/14/2024 12:57 AM EST [facility] Blood VENOUS BLOOD SPECIMEN / Unknown Venipuncture / Unknown 06/14/2024 12:12 AM EST 06/14/2024 12:29 AM EST Shahnaz Mares MD CHEMISTRY ORDERABLES [facility] [place] [address] * Scan Doc: Implantable Devices (06/14/2024 12:00 AM EST) Narrative 06/14/2024 12:00 AM EST Ordered by an unspecified provider. Scanning Provider MEDIA MGR SCAN EXT O RDR/RSLT * ABORH RECHECK (06/13/2024 4:11 PM EST) ABORH Recheck O POSITIVE 06/13/2024 4:50 PM EST [facility] Blood VENOUS BLOOD SPECIMEN / Unknown Venipuncture / Unknown 06/13/2024 4:11 PM EST 06/13/2024 4:19 PM EST Haja Byrnes MD BLOOD BANK LAB ORDER EUSEBIA Performing Organization Address City/[facility]/ZIP Co de Phone Number [facility] [place] [address] * Type and screen ([facility]CGP/RAFITA) (06/13/2024 11:53 AM EST) ABORH Type O POSITIVE 06/13/2024 1:16 PM EST [facility] PATIENT HISTORY Not Found 06/13/2024 1:16 PM EST [facility] Expires at [id number] on: 06/16/2024 06/13/2024 1:16 PM EST [facility] ANTIBODY SCREEN AUTOMATED Negative 06/13/2024 1:16 PM EST [facility] T&S only valid at [facility] 06/13/2024 1:16 PM EST [facility] Blood VENOUS BLOOD SPECIMEN / Unknown Venipuncture / Unknown 06/13/2024 11:53 AM EST 06/13/2024 11:56 AM EST Narrative [facility] - 06/13/2024 1:16 PM EST This Type and Screen result is only valid at the [facility] Haja Byrnes MD BLOOD BANK LAB ORDER EUSEBIA [facility] [place] [place] [address] * CARDIAC CATHETERIZATION (06/13/2024 9:02 AM EST) Only the most recent of2 resultswithin the time period is included. Anatomical Region Laterality Modality Other Narrative 06/15/2024 9:07 AM EST ?[facility] ? Cardiac Catheterization/Intervention Report ? Patient Name: Tyson, George L. ? Procedure Date: 06/13/2024 ? A #: [id number] ? Primary Physician: Nuha Shen I ? Case #: [id number] ? File Name: [id number] ? Catheterization Order Number: [id number] ? [facility] ? Final Report [place], [place] ? Patient Name: ? George L. Tyson ? ID#: ?[id number] ? : ?1955 ? Procedure Date: ? June 13, 2024 ?Case #: ? [id number] ? Room: ? 6 ? Case Physician: ? Nuha Shen M.D. ? Start: ?09:20 ?Fellow: ? Stefano Rowland, P.A. ? Admission: ??06/02/2024 ? Referring Physician: ??Alice Randall. ? Procedures: ?* Intra-Aortic Balloon Pump (IABP) Insertion ?* Access Site Angiography ?* Vascular Ultrasound ? History ?George Mehta is a 69 year old man. He has hypertension. The patient's ?smoking status is Former. He has hypercholesterolemia managed with lipid ?therapy. The patient has diabetes managed by oral medication and insulin. ?He has sequelae from diabetes. The patient has a prior history of ?coronary artery disease. He is status post a recent ST elevation ?myocardial infarction as well as a remote myocardial infarction. The ?patient had a remote coronary intervention procedure. He has a history of ?an ejection fraction less than or equal to 35%. The patient has a history ?of CHF. The CHF is NYHA Functional Class II and is classified as ?Systolic. The patient has an ICD implantation. He has a calcified ?ascending aorta. The patient also has a history of chronic obstructive ?pulmonary disease. Prior to the initiation of this procedure, the patient ?was designated as ASA Class IV. The [facility] clinical frailty scale is 5: ?Mildly Frail. ? Diagnostic Tests: ?Prior Coronary Angiography: ? Prior coronary angiography was performed on 06/02/2024 and showed ? obstructive CAD. LV ejection fraction within 6 months is 25%. ?Electrocardiography: ? EKG was assessed by ECG. EKG was Abnormal. EKG showed other ? abnormality. ?Medications Prior to Procedure: ? Sacubitril and Valsartan, Aspirin, Beta Sathya and Statin. ? Indications for Diagnostic Cath: ?The priority of the diagnostic procedure was Urgent. The indication for ?the field laborer visit is ACS greater than 24 hrs and LV dysfunction. Chest ?pain symptom assessment was: Asymptomatic. Ventricular support was ?supplied with mechanical support with Intra-aortic balloon pump (IABP) ?Inserted during procedure and prior to intervention. ? Technique: ?An 8Fr sheath was inserted in the right femoral artery utilizing the ?Seldinger technique. A total of 100cc of Omnipaque were opened, 4cc of ?Omnipaque were administered and 96cc of Omnipaque were wasted. Radiation: ?Fluoro time was 1.7 minutes, dose area product was 3.86 Gy/cm2 and air ?kerma was 143 mGY. See the case log for additional details. ? Hemodynamics: ?Left Heart Pressures ? Resting: ? Syst Diast ? EDP ?a ?v ? m ?Ao 138 ?? 66 ?115 ? Indication for Selected Procedures: ?An intraaortic balloon pump was inserted for Prophylaxis, pre-heart ?surgery. ? Vascular Access: ?Vascular Access Angiogram: ? A selective angiogram at the right femoral artery revealed mild ? diffuse disease. ?Vascular Ultrasound: ? Ultrasound of the right femoral artery was used to guide access and ? showed vessel patent with mild disease. Needle entry was observed. ?Vascular Access Management: ? The right femoral artery access was secured in place for monitoring, ? staged procedure or therapy. ? Conclusions: ?* Successful placement of 8F IABP through the RFA. ? Complications/Events: ?The patient had no complications during these procedures. ? Post Procedure Fluid Recommendations: ?IV fluid at 282 mL/hr for 4 hours for a total of 1,128 mL. These ?recommendations are made at the time of the procedure. Patient and ?provider preferences or a changing clinical situation may require ?modification of this regimen. ?The attending physician was present for the entire procedure. ?Dr. Nuha Shen M.D. was present during the moderate sedation ?intraservice time as documented by the sedation nurse. ??Case time = 00:27. ?Dr. Nuha Shen M.D. performed the access site angiography, vascular ?ultrasound and IABP insertion in field laborer. ? Nuha Shen M.D. ? Electronically Signed by: Nuha Shen M.D. ? Report Finalized: 06/15/2024 ??08:59 ? Procedure Note Nuha Shen MD - 06/15/2024 [facility] Cardiac Catheterization/Intervention Report Patient Name: George Mehta Procedure Date: 06/13/2024 A #: [id number] Primary Physician: Nuha Shen I Case #: [id number] File Name: [id number] Catheterization Order Number: [id number] [facility] FinalReport [place], [place] Patient Name: George RaadViry Mehta ID#:[id number] :1955 Procedure Date: June 13, 2024 Case #: [id number] Room: 6 Case Physician: Nuha Shen M.D. Start: 09:20 Fellow: Junaid Tellez Admission:06/02/2024 Referring Physician: Junaid Randall Procedures: * Intra-Aortic Balloon Pump (IABP) Insertion * Access Site Angiography * Vascular Ultrasound History George Mehta is a 69 year old man. He has hypertension. Thepatient's smoking status is Former. He has hypercholesterolemia managed withlipid therapy. The patient has diabetes managed by oral medication andinsulin. He has sequelae from diabetes. The patient has a prior history of coronary artery disease. He is status post a recent ST elevation myocardial infarction as well as a remote myocardial infarction. The patient had a remote coronary intervention procedure. He has ahistory of an ejection fraction less than or equal to 35%. The patient has ahistory of CHF. The CHF is NYHA Functional Class II and is classified as Systolic. The patient has an ICD implantation. He has a calcified ascending aorta. The patient also has a history of chronicobstructive pulmonary disease. Prior to the initiation of this procedure, thepatient was designated as ASA Class IV. The [facility] clinical frailty scale is5: Mildly Frail. 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 LV ejection fraction within 6 months is 25%. Electrocardiography: EKG was assessed by ECG. EKG was Abnormal. EKG showed other abnormality. Medications Prior to Procedure: Sacubitril and Valsartan, Aspirin, Beta Sathya and Statin. Indications for Diagnostic Cath: The priority of the diagnostic procedure was Urgent. The indicationfor the field laborer visit is ACS greater than 24 hrs and LV dysfunction.Chest pain symptom assessment was: Asymptomatic. Ventricular support was supplied with mechanical support with Intra-aortic balloon pump(IABP) Inserted during procedure and prior to intervention. Technique: An 8Fr sheath was inserted in the right femoral artery utilizing the Seldinger technique. A total of 100cc of Omnipaque were opened, 4ccof Omnipaque were administered and 96cc of Omnipaque were wasted.Radiation: Fluoro time was 1.7 minutes, dose area product was 3.86 Gy/cm2 andair kerma was 143 mGY. See the case log for additional details. Hemodynamics: Left Heart Pressures Resting: Syst Diast EDP a v m Ao 138 66 115 Indication for Selected Procedures: An intraaortic balloon pump was inserted for Prophylaxis, pre-heart surgery. Vascular Access: Vascular Access Angiogram: A selective angiogram at the right femoral artery revealed mild diffuse disease. Vascular Ultrasound: Ultrasound of the right femoral artery was used to guide accessand showed vessel patent with mild disease. Needle entry wasobserved. Vascular Access Management: The right femoral artery access was secured in place formonitoring, staged procedure or therapy. Conclusions: * Successful placement of 8F IABP through the RFA. Complications/Events: The patient had no complications during these procedures. Post Procedure Fluid Recommendations: IV fluid at 282 mL/hr for 4 hours for a total of 1,128 mL. These recommendations are made at the time of the procedure. Patient and provider preferences or a changing clinical situation may require modification of this regimen. The attending physician was present for the entire procedure. Dr. Nuha Shen M.D. was present during the moderate sedation intraservice time as documented by the sedation nurse. Case time =00:27. Dr. Nuha Shen M.D. performed the access site angiography,vascular ultrasound and IABP insertion in field laborer. Nuha Shen M.D. Electronically Signed by: Nuha Shen M.D. Report Finalized: 06/15/2024 08:59 Nuha Rojo MD CARDIAC CATH ORDERA BLES * (ABNORMAL) Blood Gas, Venous (06/10/2024 5:42 PM EST) pH, Venous 7.34 7.32 - 7.42 06/10/2024 5:50 PM [facility] PCO2, Venous 52 38 - 58 mmHg 06/10/2024 5:50 PM [facility] PO2, Venous 24 16 - 65 mmHg 06/10/2024 5:50 PM [facility] Bicarbonate, Venous 27.4 22 - 31 mmol/L 06/10/2024 5:50 PM [facility] Base Excess, Venous 1.7(L) 1.9 - 4.5 mmol/L 06/10/2024 5:50 PM [facility] Hemoglobin, Venous 16.8(H) 13.7 - 16.5 g/dL 06/10/2024 5:50 PM [facility] Oxyhemoglobin, Venous 39.0 % 06/10/2024 5:50 PM [facility] Carboxyhemoglobin , Venous 0.3 % 06/10/2024 5:50 PM [facility] Comment: Nonsmokers: 0.5-1.5% COHB ?? Smokers: Variable ??but usually less than 10% ?? Toxic: 20-30% COHB ?? Lethal: Greater than 60% COHB Methemoglobin, Venous 0.5 <=1.5 % 06/10/2024 5:50 PM [facility] Sodium, Venous 137 135 - 145 mmol/L 06/10/2024 5:50 PM [facility] Chloride, Venous 96(L) 98 - 107 mmol/L 06/10/2024 5:50 PM [facility] Potassium, Venous 4.6 3.5 - 5.0 mmol/L 06/10/2024 5:50 PM [facility] Ionized Calcium, Venous 1.23 1.15 - 1.33 mmol/L 06/10/2024 5:50 PM [facility] Glucose, Venous 114 65 - 199 mg/dL 06/10/2024 5:50 PM [facility] Comment:Glucose Concentratio n >=200 mg/dL plus symptoms is consistent with Diabetes Mellitus. Lactate, Venous 1.1 0.5 - 2.2 mmol/L 06/10/2024 5:50 PM EST [facility] Blood Gas Source Venous 06/10/20 5:50 PM EST [facility] Blood VENOUS BLOOD SPECIMEN / Unknown Blood Gas Venous / Unknown 06/10/2024 5:42 PM EST 06/10/2024 5:47 PM EST Melida Valdes MD CHEMISTRY ORDERABLES [facility] [address] [place] [address] * MRI Cardiac Morphology Function wwo Contrast (06/07/2024 1:10 PM EST) [email or web address] WORKSTATION ID [id number] DH RAD Anatomical Region Laterality Modality Magnetic Resonan ce Impressions 06/07/2024 2:41 PM EST - Findings consistent with an ischemic dilated cardiomyopathy. ??Findings are also suggestive of acute/subacute myocardial infarction in the diagonal or obtuse marginal territory. ??Specifically, there is microvascular dysfunction, myocardial edema, resting hypoperfusion, and delayed enhancement of the basal to mid anterolateral/lateral segments. ??There is evidence of remote, non- transmural infarction in the wrap-around LAD territory. ??Overall, findings suggest that the myocardium is viable; there is no transmural delayed enhancement. - Mildly dilated left ventricle size with namdcfrd-sa-suvxlclv decreased LV systolic function. ??LV ejection fraction is 26%. ??Global hypokinesis with akinesis of the basal to mid anterolateral segments. ??No LV thrombus. - Normal right ventricle size and shape with normal RV systolic function. ??RV ejection fraction is 53%. ?? - No significant valvular abnormalities. Thank you for letting us participate in the care of this patient. ??If you are a health care provider and have any questions regarding this report, please contact the number below. ??For patients who have questions please contact the health assurance services manager health care that requested your imaging first. ? Electronically signed by: Kriss Alonzo MD, [facility] ([phone]), at 06/07/2024 2:41 PM Narrative 06/07/2024 2:41 PM EST EXAMINATION: MRI CARDIAC MORPHOLOGY FUNCTION WWO CONTRAST CLINICAL HISTORY: 69yo M w/ 3v disease, request MRI prior to CABG COMPARISON: None. TECHNIQUE: Axial HASTE without contrast. Short and long axis cine steady-state free precession without contrast. ?? T2-weighted images in the short axis plane Short and long axis rest perfusion and delayed enhancement after intravenous administration of 38 cc of Dotarem High/wide bandwidth pulse sequences to decrease susceptibility artifacts Post-processing performed on an independent computer workstation. POTENTIAL STUDY LIMITATIONS: ??Susceptibility artifacts from ICD generator and leads ANTHROPOMETRICS: ??BSA 2.10, HR 70 BPM FINDINGS: ICD generator implanted in the left upper chest wall; otherwise, the chest wall and mediastinum appear normal. No significant adenopathy is identified. The study was not optimized to assess the lungs; however, limited imaging reveals no gross abnormalities. Endocardial leads terminate in the right atrium, right ventricle, and coronary sinus in expected positions. The pulmonary arteries appear normal. ?? Cardiac Chambers: The cardiac chambers demonstrate normal atrioventricular and ventriculoarterial concordance, as well as normal systemic and pulmonary venous return. Mild left atrial enlargement. LEFT VENTRICLE: Mildly dilated left ventricle size with cjthoeer-us-gdzatreu decreased LV systolic function. ??LV ejection fraction is 26%. ??Global hypokinesis with akinesis of the basal to mid anterolateral segments. ??No LV thrombus. LV Mass: 179 g LV Mass Index: 86 g/m^2 LV End-Diastolic Volume: 286 mL LV End-Diastolic Volume Index: 137 mL/m^2 LV End-Systolic Volume: 212 mL LV End-Systolic Volume Index: 101 mL/m^2 Stroke Volume: 74 mL Stroke Volume Index: 36 mL/m^2 Ejection Fraction: 26% Cardiac Output: 5.2 L/min Cardiac Index: ??2.5 L/(min*m^2) Anteroseptal Wall Thickness: 70 mm Posterolateral Wall Thickness: 61 mm End-Diastolic Dimension: 13 mm End-Systolic Dimension: 10 mm RIGHT VENTRICLE: Normal right ventricle size and shape with normal RV systolic function. ??RV ejection fraction is 53%. ??No regional wall motion abnormalities. RV End-Diastolic Volume: 91 mL RV End-Diastolic Volume Index: 43 mL/m^2 RV End-Systolic Volume: 43 mL RV End-Systolic Volume Index: 20 mL/m^2 RV Stroke Volume: 48 mL RV Stroke Volume Index: 23 mL/m^2 RV Ejection Fraction: 53% MYOCARDIUM: Non-Contrast Series: Evidence of microvascular dysfunction of the basal to mid anterolateral segments on non-contrast images. ??On T2-weighed images, increased subendocardial signal of the basal to mid anterolateral segments suggesting mild myocardial edema. Post-Contrast Series: - Rest Perfusion: ??Focal hypoperfusion of the mid lateral segment. - Post-Contrast Inversion Recovery: ??Normal gadolinium kinetics. - Delayed Enhancement: ??Minimal (< 25% myocardial thickness) of the entire wraparound LAD territory (entire anterior to apical to inferoapical segments). Mild (25-50% myocardial thickness) subendocardial enhancement of the mid interventricular septum. Moderate (50-60% myocardial thickness) focal s of the mid lateral segment. VALVES: Aortic valve: ??Trileaflet aortic valve. ??Adequate systolic leaflet excursion. Trace visualized aortic regurgitation. Mitral Valve: Mild visualized mitral regurgitation. Pulmonic Valve: ??Trace visualized pulmonic effusion. Tricuspid Valve: Mild visualized tricuspid regurgitation. OTHER CARDIOVASCULAR STRUCTURES: Pericardium: ??Normal pericardium. ??No pericardial effusion, thickening, or delayed pericardial enhancement. Thoracic Aorta: ??No acute or obvious abnormalities, although study was not optimized for aorta assessment. UPPER ABDOMEN: ??No significant abnormalities of the visualized organs. Procedure Note Kriss Alonzo MD - 06/07/2024 EXAMINATION: MRI CARDIAC MORPHOLOGY FUNCTION WWO CONTRAST CLINICAL HISTORY: 69yo M w/ 3v disease, request MRI prior to CABG COMPARISON: None. TECHNIQUE: Axial HASTE without contrast. Short and long axis cine steady-state free precession without contrast. T2-weighted images in the short axis plane Short and long axis rest perfusion and delayed enhancement afterintravenous administration of 38 cc of Dotarem High/wide bandwidth pulse sequences to decrease susceptibility artifacts Post-processing performed on an independent computer workstation. POTENTIAL STUDY LIMITATIONS: Susceptibility artifacts from ICD generatorand leads ANTHROPOMETRICS: BSA 2.10, HR 70 BPM FINDINGS: ICD generator implanted in the left upper chest wall; otherwise, the chestwall and mediastinum appear normal. No significant adenopathy is identified.The study was not optimized to assess the lungs; however, limited imagingreveals no gross abnormalities. Endocardial leads terminate in the right atrium,right ventricle, and coronary sinus in expected positions. The pulmonary arteries appear normal. Cardiac Chambers: The cardiac chambers demonstrate normal atrioventricular andventriculoarterial concordance, as well as normal systemic and pulmonary venous return. Mildleft atrial enlargement. LEFT VENTRICLE: Mildly dilated left ventricle size with svwzknbz-ei-zotkuhnu decreasedLV systolic function. LV ejection fraction is 26%. Global hypokinesiswith akinesis of the basal to mid anterolateral segments. No LV thrombus. LV Mass: 179 g LV Mass Index: 86 g/m^2 LV End-Diastolic Volume: 286 mL LV End-Diastolic Volume Index: 137 mL/m^2 LV End-Systolic Volume: 212 mL LV End-Systolic Volume Index: 101 mL/m^2 Stroke Volume: 74 mL Stroke Volume Index: 36 mL/m^2 Ejection Fraction: 26% Cardiac Output: 5.2 L/min Cardiac Index: 2.5 L/(min*m^2) Anteroseptal Wall Thickness: 70 mm Posterolateral Wall Thickness: 61 mm End-Diastolic Dimension: 13 mm End-Systolic Dimension: 10 mm RIGHT VENTRICLE: Normal right ventricle size and shape with normal RV systolic function.RV ejection fraction is 53%. No regional wall motion abnormalities. RV End-Diastolic Volume: 91 mL RV End-Diastolic Volume Index: 43 mL/m^2 RV End-Systolic Volume: 43 mL RV End-Systolic Volume Index: 20 mL/m^2 RV Stroke Volume: 48 mL RV Stroke Volume Index: 23 mL/m^2 RV Ejection Fraction: 53% MYOCARDIUM: Non-Contrast Series: Evidence of microvascular dysfunction of the basal tomid anterolateral segments on non-contrast images. On T2-weighed images,increased subendocardial signal of the basal to mid anterolateral segmentssuggesting mild myocardial edema. Post-Contrast Series: - Rest Perfusion: Focal hypoperfusion of the mid lateral segment. - Post-Contrast Inversion Recovery: Normal gadolinium kinetics. - Delayed Enhancement: Minimal (< 25% myocardial thickness) of theentire wraparound LAD territory (entire anterior to apical to inferoapicalsegments). Mild (25-50% myocardial thickness) subendocardial enhancement of the mid interventricular septum. Moderate (50-60% myocardial thickness) focal s ofthe mid lateral segment. VALVES: Aortic valve: Trileaflet aortic valve. Adequate systolic leafletexcursion. Trace visualized aortic regurgitation. Mitral Valve: Mild visualized mitral regurgitation. Pulmonic Valve: Trace visualized pulmonic effusion. Tricuspid Valve: Mild visualized tricuspid regurgitation. OTHER CARDIOVASCULAR STRUCTURES: Pericardium: Normal pericardium. No pericardial effusion, thickening,or delayed pericardial enhancement. Thoracic Aorta: No acute or obvious abnormalities, although study wasnot optimized for aorta assessment. UPPER ABDOMEN: No significant abnormalities of the visualized organs. IMPRESSION - Findings consistent with an ischemic dilated cardiomyopathy. Findingsare also suggestive of acute/subacute myocardial infarction in the diagonalor obtuse marginal territory. Specifically, there is microvasculardysfunction, myocardial edema, resting hypoperfusion, and delayed enhancement of thebasal to mid anterolateral/lateral segments. There is evidence of remote,non-transmural infarction in the wrap-around LAD territory. Overall, findings suggestthat the myocardium is viable; there is no transmural delayed enhancement. - Mildly dilated left ventricle size with czulvilg-rb-viawavfx decreasedLV systolic function. LV ejection fraction is 26%. Global hypokinesiswith akinesis of the basal to mid anterolateral segments. No LV thrombus. - Normal right ventricle size and shape with normal RV systolic function.RV ejection fraction is 53%. - No significant valvular abnormalities. Thank you for letting us participate in the care of this patient. If youare a health care provider and have any questions regarding this report,please contact the number below. For patients who have questions please contactthe health assurance services manager health care that requested your imaging first. Electronically signed by: Kriss Alonzo MD, [facility]([phone]), at 06/07/2024 2:41 PM Delroy Fofana MD IM MRI ORDERABLES * (ABNORMAL) Hemoglobin A1c (06/06/2024 3:33 AM EST) Hemoglobin A1c 7.1(H) 4.3 - 5.6 % 06/06/2024 1:01 PM EST [facility] Comment: Per ADA guidelines, without clear symptoms of hyperglycemia or a random plasma glucose >199 mg/dL, a single abnormal A1c measurement cannot be used to diagnose diabetes mellitus. The diagnosis must be confirmed by either 1) a concurrent abnormal fasting plasma glucose or impaired response to oral glucose tolerance testing, or 2) an additional abnormal A1c, impaired fasting plasma glucose, or impaired response to oral glucose tolerance testing on a different day. A1c results obtained on patients with altered red blood cell turnover may not be policy services representative of glycemic control. Reference Interval: 4.3 - 5.6% 5.7 - 6.4%: Consistent with prediabetes >=6.5%: Consistent with diagnosis of diabetes mellitus Estimated Average Glucose 157 mg/dL 06/06/2024 1:01 PM EST [facility] Blood VENOUS BLOOD SPECIMEN / Unknown Venipuncture / Unknown 06/06/2024 3:33 AM EST 06/06/2024 3:48 AM EST Alejandra Baumann APRN CHEMISTRY ORDERAB LES [facility] [place] [address] * Scan Doc: Implantable Devices (06/04/2024 12:00 AM EDT) Narrative 06/04/2024 12:00 AM EDT Ordered by an unspecified provider. Scanning Provider MEDIA MGR SCAN EXT O RDR/RSLT * CT Chest wo Contrast (Generic) (06/03/2024 4:33 PM EDT) WORKSTATION ID [id number] DH RAD Anatomical Region Laterality Modality Chest Computed Tomogra phy Impressions 06/03/2024 4:47 PM EDT Cardiomegaly. Biventricular ICD leads in place. Thank you for letting us participate in the care of this patient. ??If you are a health care provider and have any questions regarding this report, please contact the number below. ??For patients who have questions please contact the health assurance services manager health care that requested your imaging first. ? Electronically signed by: Stuart Aponte MD, [facility] ??([phone]), at 06/03/2024 4:47 PM Narrative 06/03/2024 4:47 PM EDT EXAMINATION: CT CHEST WO CONTRAST (GENERIC) CLINICAL HISTORY: preop cabg eval TECHNIQUE: Helical CT of the chest without intravenous contrast administration. Thin-section reconstructions as well as coronal and sagittal reformatted images were generated. COMPARISON: None FINDINGS: Pulmonary parenchyma: Mild dependent atelectasis. Airways: No central endobronchial abnormality. Pleura: No effusion. Lymph nodes: No lymphadenopathy. Heart and vasculature: The heart is enlarged. Biventricular ICD leads terminate in the right atrium, right ventricle and coronary sinus tributary. There are coronary artery calcifications. Minimal aortic root calcification. There is mild descending aortic calcification. Other mediastinal structures: No significant findings. Upper abdomen: There are bilateral renal cysts and subcentimeter left renal hypodensity Skeletal structures: There is qualitative osteopenia. Procedure Note Stuart Aponte MD - 06/03/2024 EXAMINATION: CT CHEST WO CONTRAST (GENERIC) CLINICAL HISTORY: preop cabg eval TECHNIQUE: Helical CT of the chest without intravenous contrastadministration. Thin-section reconstructions as well as coronal and sagittal reformattedimages were generated. COMPARISON: None FINDINGS: Pulmonary parenchyma: Mild dependent atelectasis. Airways: No central endobronchial abnormality. Pleura: No effusion. Lymph nodes: No lymphadenopathy. Heart and vasculature: The heart is enlarged. Biventricular ICD leadsterminate in the right atrium, right ventricle and coronary sinus tributary. Thereare coronary artery calcifications. Minimal aortic root calcification. Thereis mild descending aortic calcification. Other mediastinal structures: No significant findings. Upper abdomen: There are bilateral renal cysts and subcentimeter leftrenal hypodensity Skeletal structures: There is qualitative osteopenia. IMPRESSION Cardiomegaly. Biventricular ICD leads in place. Thank you for letting us participate in the care of this patient. If youare a health care provider and have any questions regarding this report,please contact the number below. For patients who have questions please contactthe health assurance services manager health care that requested your imaging first. Electronically signed by: Stuart Aponte MD, [facility]([phone]), at 06/03/2024 4:47 PM Wendi Loja MD IMG CT ORDERABLES * Carotid Duplex, Bilateral (06/03/2024 2:19 PM EDT) VB Text Report Department: Vascular Surgery Lab Patient: [id number] (GEORGE MEHTA) CPT: 59204 Referring Physician: WENDI LOJA ?? Phone: Indications: Pre-op CABG, ? carotid stenosis Findings: ICA Proximal, Right ? PSV (cm/s): 168 ? EDV (cm/s): 39 ? ICA/CCA: 2.5 ? Plaque Structure: Echogenic ? Plaque Surface: Irregular ? %Stenosis: 16-49% ICA Distal, Right ? PSV (cm/s): 87 ? EDV (cm/s): 29 ? ICA/CCA: 1.3 CCA Distal, Right ? PSV (cm/s): 67 ? EDV (cm/s): 18 ? %Stenosis: <50% CCA Proximal, Right ? PSV (cm/s): 81 ? EDV (cm/s): 18 External Carotid Artery, Right ? PSV (cm/s): 123 ? EDV (cm/s): 14 ? %Stenosis: <50% Vertebral, Right ? PSV (cm/s): 39 ? EDV (cm/s): 10 ? Direction of Flow: Antegrade ICA Proximal, Left ? PSV (cm/s): 109 ? EDV (cm/s): 39 ? ICA/CCA: 1.5 ? Plaque Structure: Echogenic ? Plaque Surface: Irregular ? %Stenosis: 16-49% ICA Distal, Left ? PSV (cm/s): 80 ? EDV (cm/s): 33 ? ICA/CCA: 1.1 CCA Distal, Left ? PSV (cm/s): 72 ? EDV (cm/s): 16 ? %Stenosis: <50% CCA Proximal, Left ? PSV (cm/s): 106 ? EDV (cm/s): 20 External Carotid Artery, Left ? PSV (cm/s): 152 ? EDV (cm/s): 14 ? %Stenosis: <50% Vertebral, Left ? PSV (cm/s): 48 ? EDV (cm/s): 13 ? Direction of Flow: Antegrade Interpretation: RIGHT: There is irregular plaque in the common carotid artery causing <50% stenosis by B-mode. There is bulky irregular plaque in the proximal internal carotid artery causing 16-49% stenosis when compared to the more distal internal carotid artery. The bifurcation level is in the mid neck. LEFT: There is smooth plaque in the common carotid artery causing <50% stenosis by B-mode. There is bulky irregular plaque in the proximal internal carotid artery causing 16-49% stenosis when compared to the more distal internal carotid artery. The bifurcation level is in the mid neck. Calcification of the carotid bifurcation prohibits thorough interrogation by Doppler: unable to exclude more significant stenosis. Vertebral Artery Data: Patent vertebral arteries with normal antegrade Doppler waveforms and velocities bilaterally. Comparison: ??No previous study in our vascular lab database for comparison. Electronically Signed by: KRISS MCKEON M.D. on 2024-06-03 03:51:06 PM [facility] VB Text Report End of Report [facility] 06/03/2024 2:19 PM EDT Wendi Loja MD VASCULAR ORDERABLES [facility] * (ABNORMAL) Troponin-T, High Sensitivity 3 Hour (06/03/2024 10:06 AM EDT) Only the most recent of2 resultswithin the time period is included. Troponin-T, High Sensitivity 266(H) <=22 ng/L 06/03/2024 10:50 AM EDT [facility] Comment: This patient's troponin T concentration was determined using the Saur[employer]h 5th Generation troponin T assay. According to the fourth universal definition of myocardial infarction, the term acute myocardial infarction should be used when there is acute myocardial injury with clinical evidence of acute myocardial ischemia and with detection of a rise and/or fall of cardiac troponin values with at least one value above the 99th percentile and at least one of the following: - Symptoms of myocardial ischemia; - New ischemic ECG changes; - Development of pathological Q waves; - Imaging evidence of new loss of viable myocardium or new regional wall motion ?? abnormality in a pattern consistent with an ischemic etiology; - Identification of a coronary thrombus by angiography or autopsy (not for type 2 or 3 ?? MIs) Serial measurement of troponin and the change in troponin concentration over time (delta) is crucial for the diagnosis of acute myocardial infarction. Guidance on the interpretation of the new 5th Generation Troponin T values and the delta troponin value can be found in the [facility] Test Catalog Troponin - [email or web address]/catalogs/565/files/71580 Reference: Fourth [place] Definition of Myocardial Infarction. Journal of the [place] [employer] 2018;72:9089-5471 Troponin-T, HS 3 hr delta 06/03/2024 10:50 AM EDT [facility] Comment:Delta troponin value not calculated, sample collected outside of delta calculation time limit. Blood VENOUS BLOOD SPECIMEN / Unknown IP Care Team Draw / Unknown 06/03/2024 10:06 AM EDT 06/03/2024 10:15 AM EDT Delroy Fofana MD CHEMISTRY ORDERABLE S [facility] [place] [address] * ECHO COMPLETE W CONTRAST (06/03/2024 8:46 AM EDT) Anatomical Region Laterality Modality Cardiac Other 06/03/2024 6:52 AM EDT Narrative 06/03/2024 10:32 AM EDT [address] [place], [place] [id number] ? Echocardiogram Report Name: GEORGE MEHTA ?Study Date: 06/03/2024 06:52 AM : 1955 ? Height: 168 cm ? Account: [id number] Age: 69 yrs ? Weight: 102 kg Gender: Male ?BSA: 2.1 m2 Ordering Physician: SHAHNAZ MARES Referring Physician: NEHAL QUINTERO Performed By: Sara Kebede RDCS Reason For Study: STEMI Exam Location: [facility]. Interpretation Summary -Left ventricular systolic function is severely reduced. Left ventricular ejection fraction is estimated visually at 25-30%. There are segmental wall motion abnormalities in a multivessel coronary distribution as coded below (and in the linked PDF). -The right ventricle is of normal size. Right ventricular systolic function is normal. -No significant valve disease. -No comparison study is available (other than a fellow performed study of today's date). Procedure Complete-54222. Image enhancement Optison was used for left ventricular opacification. Suboptimal quality. Left Ventricle Left ventricle is of normal size. Wall thickness is normal. Left ventricular systolic function is severely reduced. Left ventricular ejection fraction is estimated visually at 25-30%. There are segmental wall motion abnormalities. Right Ventricle The right ventricle is of normal size. Right ventricular systolic function is normal. Left Atrium The left atrium is mildly dilated. No abnormality of the interatrial septum is identified. Right Atrium The right atrium is probably normal in size. Aortic Valve The aortic valve is probably trileaflet. The aortic valve is mildly thickened. The aortic valve is mildly calcified. There is aortic valve sclerosis without stenosis. There is no aortic regurgitation. Mitral Valve The mitral valve leaflets are thickened. The mitral valve leaflets are calcified. There is mitral annular calcification. There is no mitral stenosis. There is mild mitral regurgitation. Tricuspid Valve The tricuspid valve is structurally and functionally normal. There is no tricuspid stenosis. There is mild tricuspid regurgitation. Pulmonic Valve The pulmonic valve is not well visualized. Great Arteries The aortic root is not well visualized. The ascending aorta is not well visualized. Venous Inferior vena cava is normal in size. Inferior vena cava collapse greater than 50% with respiration. Pericardium/Pleural A pericardial fat pad is present. Hemodynamics Pulmonary artery hypertension could not be assessed due to inadequate tricuspid regurgitation jet. There is Grade II LV diastolic dysfunction (abnormal relaxation with elevated left ventricular filling pressure). ? 2D Measurements ? Volumes ?IVSd: 0.82 cm ?LAV(MOD-bp) Indexed: ?LVIDd: 6.1 cm ?LVIDs: 5.2 cm ?35.7 ml/m2 ?LVPWd: 0.86 cm ? SV(LVOT): 46.9 ml ? SI(LVOT): 22.3 ml/m2 ?RWT: 0.28 {ratio} ?LV mass(C)d: 205.6 grams ?LV mass(C)dI: 98.0 grams/m2 ?LVOT diam: 2.0 cm ?TAPSE_phl: 2.2 cm Doppler LV V1 VTI: 15.0 cm Ao V2 VTI: 26.5 cm Ao Max Darrius: 124.3 cm/sec Ao valve max: 6.2 mmHg Ao valve mean: 3.2 mmHg MV E max darrius: 124.3 cm/sec MV A max darrius: 98.5 cm/sec MV E/A: 1.3 MV dec time: 0.16 sec Lat Peak E' Darrius: 5.5 cm/sec E/e' (lat): 22.4 Med Peak E' Darrius: 4.8 cm/sec E/e' (med): 26.0 E/e' Average: 24.2 JA(I,D): 1.8 cm2 Dimensionless index Aov: 0.57 I ?WMSI = 2.38 ? % Normal = 0 ?Segments ??Size X - Cannot ?? 1 - Normal ?? 2 - ? 3 - Akinetic 4 - ?1-2 ? small Interpret ? Hypokinetic ?Dyskinetic ?? 3-5 ? moderate 5 - ? 6-14 ?large Aneurysmal ?15-16 ?? diffuse Procedure Note Jonnie Jordan MD - 06/03/2024 [address] [place] [address] Echocardiogram Report Name: GEORGE MEHTA Study Date: 406:52 AM : 1955 Height: 168 cm Account: [id number] Age: 69 yrs Weight: 102 kg Gender: Male BSA: 2.1 m2 Ordering Physician: SHAHNAZ MARES Referring Physician: NEHAL QUINTERO Performed By: Sara Kebede RDCS Reason For Study: STEMI Exam Location: [facility]. Interpretation Summary -Left ventricular systolic function is severely reduced. Left ventricularejection fraction is estimated visually at 25-30%. There are segmental wallmotion abnormalities in a multivessel coronary distribution as coded below (andin the linked PDF). -The right ventricle is of normal size. Right ventricular systolicfunction is normal. -No significant valve disease. -No comparison study is available (other than a fellow performed study of's date). Procedure Complete-[id number]. Image enhancement Optison was used for left ventricular opacification. Suboptimal quality. Left Ventricle Left ventricle is of normal size. Wall thickness is normal. Leftventricular systolic function is severely reduced. Left ventricular ejection fractionis estimated visually at 25-30%. There are segmental wall motionabnormalities. Right Ventricle The right ventricle is of normal size. Right ventricular systolic functionis normal. Left Atrium The left atrium is mildly dilated. No abnormality of the interatrialseptum is identified. Right Atrium The right atrium is probably normal in size. Aortic Valve The aortic valve is probably trileaflet. The aortic valve is mildlythickened. The aortic valve is mildly calcified. There is aortic valve sclerosiswithout stenosis. There is no aortic regurgitation. Mitral Valve The mitral valve leaflets are thickened. The mitral valve leaflets arecalcified. There is mitral annular calcification. There is no mitral stenosis. Thereis mild mitral regurgitation. Tricuspid Valve The tricuspid valve is structurally and functionally normal. There is notricuspid stenosis. There is mild tricuspid regurgitation. Pulmonic Valve The pulmonic valve is not well visualized. Great Arteries The aortic root is not well visualized. The ascending aorta is not well visualized. Venous Inferior vena cava is normal in size. Inferior vena cava collapse greaterthan 50% with respiration. Pericardium/Pleural A pericardial fat pad is present. Hemodynamics Pulmonary artery hypertension could not be assessed due to inadequatetricuspid regurgitation jet. There is Grade II LV diastolic dysfunction (abnormalrelaxation with elevated left ventricular filling pressure). 2D Measurements Volumes IVSd: 0.82 cm LAV(MOD-bp)Indexed: LVIDd: 6.1 cm LVIDs: 5.2 cm 35.7 ml/m2 LVPWd: 0.86 cm SV(LVOT): 46.9ml SI(LVOT): 22.3ml/m2 RWT: 0.28 {ratio} LV mass(C)d: 205.6 grams LV mass(C)dI: 98.0 grams/m2 LVOT diam: 2.0 cm TAPSE_phl: 2.2 cm Doppler LV V1 VTI: 15.0 cm Ao V2 VTI: 26.5 cm Ao Max Darrius: 124.3 cm/sec Ao valve max: 6.2 mmHg Ao valve mean: 3.2 mmHg MV E max darrius: 124.3 cm/sec MV A max darrius: 98.5 cm/sec MV E/A: 1.3 MV dec time: 0.16 sec Lat Peak E' Darrius: 5.5 cm/sec E/e' (lat): 22.4 Med Peak E' Darrius: 4.8 cm/sec E/e' (med): 26.0 E/e' Average: 24.2 JA(I,D): 1.8 cm2 Dimensionless index Aov: 0.57 I WMSI = 2.38 % Normal = 0 SegmentsSize X - Cannot 1 - Normal 2 - 3 - Akinetic 4 - 1-2small Interpret Hypokinetic Dyskinetic 3-5moderate 5 - 6-14large Aneurysmal 15-16diffuse Shahnaz Mares MD ECHO ORDERABLES * (ABNORMAL) Troponin-T, High Sensitivity 1 Hour (06/03/2024 8:27 AM EDT) Only the most recent of2 resultswithin the time period is included. Troponin-T, High Sensitivity 289(H) <=22 ng/L 06/03/2024 9:26 AM EDT [facility] Comment: This patient's troponin T concentration was determined using the Saurabh 5th Generation troponin T assay. According to the fourth universal definition of myocardial infarction, the term acute myocardial infarction should be used when there is acute myocardial injury with clinical evidence of acute myocardial ischemia and with detection of a rise and/or fall of cardiac troponin values with at least one value above the 99th percentile and at least one of the following: - Symptoms of myocardial ischemia; - New ischemic ECG changes; - Development of pathological Q waves; - Imaging evidence of new loss of viable myocardium or new regional wall motion ?? abnormality in a pattern consistent with an ischemic etiology; - Identification of a coronary thrombus by angiography or autopsy (not for type 2 or 3 ?? MIs) Serial measurement of troponin and the change in troponin concentration over time (delta) is crucial for the diagnosis of acute myocardial infarction. Guidance on the interpretation of the new 5th Generation Troponin T values and the delta troponin value can be found in the [facility] Test Catalog Troponin - [email or web address]/files/[email or web address] Reference: Fourth [place] Definition of Myocardial Infarction. Journal of the [place] [employer] 2018;72:0542-0558 Troponin-T, HS 1 hr delta 5 ng/L 06/03/2024 9:26 AM EDT [facility] Comment:The 1 hour Troponin T delta value is the absolute difference between the Troponin T concentrations of the initial and subsequent sample collected between 45 - 120 minutes following the initial collection. Blood VENOUS BLOOD SPECIMEN / Unknown IP Care Team Draw / Unknown 06/03/2024 8:27 AM EDT 06/03/2024 8:37 AM EDT Delroy Fofana MD CHEMISTRY ORDERABLE S [facility] [place] [address] * (ABNORMAL) Troponin-T, High Sensitivity (06/03/2024 7:39 AM EDT) Only the most recent of2 resultswithin the time period is included. Troponin-T, High Sensitivity Initial 284(H) <=22 ng/L 06/03/2024 8:29 AM EDT [facility] Comment: This patient's troponin T concentration was determined using the Saurabh 5th Generation troponin T assay. The 99th percentile for Troponin T for this test is 14 ng/L for females, and 22 ng/L for males. According to the fourth universal definition of myocardial infarction, the term acute myocardial infarction should be used when there is acute myocardial injury with clinical evidence of acute myocardial ischemia and with detection of a rise and/or fall of cardiac troponin values with at least one value above the 99th percentile and at least one of the following: - Symptoms of myocardial ischemia; - New ischemic ECG changes; - Development of pathological Q waves; - Imaging evidence of new loss of viable myocardium or new regional wall motion ?? abnormality in a pattern consistent with an ischemic etiology; - Identification of a coronary thrombus by angiography or autopsy (not for type 2 or 3 ?? MIs) Serial measurement of troponin and the change in troponin concentration over time (delta) is crucial for the diagnosis of acute myocardial infarction. Guidance on the interpretation of the new 5th Generation Troponin T values and the delta troponin value can be found in the [facility] Test Catalog Troponin - [email or web address]/catalogs/565/files/99664 Reference: Fourth [place] Definition of Myocardial Infarction. Journal of the [place] [employer] 2018;72:9329-7770 Blood VENOUS BLOOD SPECIMEN / Unknown IP Care Team Draw / Unknown 06/03/2024 7:39 AM EDT 06/03/2024 7:48 AM EDT Delroy Fofana MD CHEMISTRY ORDERABLE S [facility] [place] [address] * Echocardiogram Transthoracic (06/03/2024 2:23 AM EDT) Anatomical Region Laterality Modality Cardiac Other 06/03/2024 2:23 AM EDT Narrative 06/03/2024 10:32 AM EDT [address] [place] [address] ? Echocardiogram Report Name: GEORGE MEHTA Raad ?Study Date: 06/03/2024 02:23 AM : 1955 Age: 69 yrs Gender: Male Performed By: Sascha Silva MD Reason For Study: STEMI Interpreting Fellow: Sascha Silva. Interpretation Summary Limited echo performed by fellow rehabilitation services aide to assess LV function. Left ventricle is mild to moderately dilated. Left ventricular ejection fraction is estimated visually at 25%. There is global dyskinesia with mid-basilar posterior-posterolateral akinesis. Right ventricle is not well seen. RV systolic function is probably normal. There is no prior echo for comparison. Procedure Limited - [id number]. Suboptimal quality. Ventricular paced. Left Ventricle Left ventricle is mild to moderately dilated. Left ventricular ejection fraction is estimated visually at 25%. Left ventricular systolic function is severely reduced. There are segmental wall motion abnormalities. Right Ventricle The right ventricle is not well visualized. There is a CIED lead in the right ventricle. Right ventricular function is probably normal. Left Atrium The left atrium is not well visualized. Right Atrium The right atrium is not well visualized. Aortic Valve The aortic valve is not well visualized. Mitral Valve The mitral valve is not well visualized. The mitral valve leaflets are thickened. I ?WMSI = 2.25 ? % Normal = 0 ?Segments ??Size X - Cannot ?2 - ?4 - ?1-2 ? small Interpret ?1 - Normal ?? Hypokinetic 3 - Akinetic Dyskinetic ?? 3-5 ? moderate 5 - ? 6-14 ?large Aneurysmal ?15-16 ?? diffuse Procedure Note Jonnie Jordan MD - 06/03/2024 [address] [place] [id number] Echocardiogram Report Name: GEORGE MEHTA Study Date: 06/03/2024 02:23AM : 1955 Age: 69 yrs Gender: Male Performed By: Sascha Silva MD Reason For Study: STEMI Interpreting Fellow: Sascha Silva. Interpretation Summary Limited echo performed by fellow rehabilitation services aide to assess LV function. Left ventricle is mild to moderately dilated. Left ventricular ejectionfraction is estimated visually at 25%. There is global dyskinesia withmid-basilar posterior-posterolateral akinesis. Right ventricle is not well seen. RV systolic function is probablynormal. There is no prior echo for comparison. Procedure Limited - [id number]. Suboptimal quality. Ventricular paced. Left Ventricle Left ventricle is mild to moderately dilated. Left ventricular ejectionfraction is estimated visually at 25%. Left ventricular systolic function isseverely reduced. There are segmental wall motion abnormalities. Right Ventricle The right ventricle is not well visualized. There is a CIED lead in theright ventricle. Right ventricular function is probably normal. Left Atrium The left atrium is not well visualized. Right Atrium The right atrium is not well visualized. Aortic Valve The aortic valve is not well visualized. Mitral Valve The mitral valve is not well visualized. The mitral valve leaflets arethickened. I WMSI = 2.25 % Normal = 0 SegmentsSize X - Cannot 2 - 4 - 1-2small Interpret 1 - Normal Hypokinetic 3 - Akinetic Dyskinetic 3-5moderate 5 - 6-14large Aneurysmal 15-16diffuse Unknown ECHO ORDERABLES * Phosphorus (06/03/2024 2:13 AM EDT) Phosphorus 4.4 2.5 - 4.5 mg/dL 06/03/2024 3:02 AM EDT [facility] Blood VENOUS BLOOD SPECIMEN / Unknown IP Care Team Draw / Unknown 06/03/2024 2:13 AM EDT 06/03/2024 2:32 AM EDT Shahnaz Mares MD CHEMISTRY ORDERABLES [facility] [place] [address] * (ABNORMAL) pro-Brain Natriuretic Peptide (06/03/2024 2:13 AM EDT) NT-proBNP 1,628(H) <=124 pg/mL 06/03/2024 4:15 AM EDT [facility] Blood VENOUS BLOOD SPECIMEN / Unknown IP Care Team Draw / Unknown 06/03/2024 2:13 AM EDT 06/03/2024 2:32 AM EDT Shahnaz Mares MD CHEMISTRY ORDERABLES [facility] [place] [address] * Hepatic Function Panel (06/03/2024 2:13 AM EDT) Albumin 3.8 3.2 - 5.2 g/dL 06/03/2024 3:02 AM EDT [facility] Aspartate Aminotransferase 20 <=39 unit/L 06/03/2024 3:02 AM EDT [facility] Alanine Aminotransferase 12 0 - 55 unit/L 06/03/2024 3:02 AM EDT [facility] Alkaline Phosphatase 76 40 - 130 unit/L 06/03/2024 3:02 AM EDT [facility] Bilirubin, Total 0.4 <=1.3 mg/dL 06/03/2024 3:02 AM EDT [facility] Bilirubin, Direct <0.2 0.0 - 0.3 mg/dL 06/03/2024 3:02 AM EDT [facility] Protein, Total 7.0 6.1 - 8.0 g/dL 06/03/2024 3:02 AM EDT [facility] Blood VENOUS BLOOD SPECIMEN / Unknown IP Care Team Draw / Unknown 06/03/2024 2:13 AM EDT 06/03/2024 2:32 AM EDT Shahnaz Mares MD CHEMISTRY ORDERABLES [facility] [place] [address] * Lipid Panel (Reflex Direct LDL) (06/03/2024 2:13 AM EDT) Pathologist [facility] Cholesterol, Total 76 mg/dL 06/03/2024 3:02 AM EDT [facility] Comment: Desirable: < 200 mg/dL Borderline High: 200 - 239 mg/dL High: > or = 240 mg/dL Triglyceride 75 mg/dL 06/03/2024 3:02 AM EDT [facility] Comment: Normal: <150 mg/dL Borderline High: 150-199 mg/dL High: 200-499 mg/dL Very High: > or =500 mg/dL HDL Cholesterol 39 mg/dL 3:02 AM EDT [facility] Comment:Males: High Risk: <4 0 mg/dL LDL Cholesterol 21 mg/dL 3:02 AM EDT [facility] Comment: Desirable: <100 mg/dL Above Desirable: 100-129 mg/dL Borderline High: 130-159 mg/dL High: 160-189 mg/dL Very High: > or =190 mg/dL Note: LDL calculation updated to the NIH LDL formula as of 03/07/2024 Non-HDL Cholesterol 37 mg/dL 06/03/2024 3:02 AM EDT [facility] Comment: Desirable: <130 mg/dL Above Desirable: 130-159 mg/dL Borderline High: 160-189 mg/dL High: 190-219 mg/dL Very High: > or = 220 mg/dL Blood VENOUS BLOOD SPECIMEN / Unknown IP Care Team Draw / Unknown 06/03/2024 2:13 AM EDT 06/03/2024 2:32 AM EDT [facility] - 06/03/2024 3:02 AM EDT It is important to review the results of your lipid panel with your health care provider. You can compare your lipid results to the ranges below and whether they are in the desirable range. These ranges are only meant to be used for people without known cardiac disease, history of stroke, or peripheral vascular disease (blockages in the leg arteries or diabetes). If you have one of these conditions, your desirable LDL-C (bad cholesterol) will likely be even lower. ?? ACC/AHA Guidelines (most recently Bruce et al. JAC 05/07/22): * For individuals with atherosclerotic cardiovascular disease (ASCVD) or LDL >=190 mg/dL, use a high-intensity statin(40-80 mg atorvastatin or 20-40 mg rosuvastatin with goal >=50% LDL reduction) * For individuals with diabetes, age 40-75 without ASCVD, moderate-intensity statin (goal 30-49% LDL reduction); consider high intensity statin for those with increased risk. * For adults without diabetes or ASCVD, aged 40-75 with LDL 70-189 mg/dL, estimate 10 year ASCVD risk with smartphrase ??.ASCVDRISK ??or Dynamed Decisions. If 10 year risk is 7.5%-19.9% (intermediate risk), consider moderate intensity statin based on risk enhancers and patient preference. Consider coronary artery calcium test (CT)if there is concern regarding the benefit of a statin. If ten year risk is >=20%, initiate high-intensity statin. * Evaluate for secondary causes of Triglycerides >500 mg/dL or LDL >190 mg/dL. * Lifestyle modification is a critical component of ASCVD risk reduction. * If not reaching LDL goals on maximally tolerated statin, consider ezetimibe and/or a PCSK9 inhibitor: ?* Target for primary prevention: LDL<100 ?* Target for those with ASCVD or diabetes and 10-year risk >=20%: LDL<70 ?* Target for those with very high risk ASCVD: LDL<55 (Very high risk being the presence of 2 or more of: recent acute coronary syndrome, past ? myocardial infarction, ischemic stroke, symptomatic peripheral artery disease) Shahnaz Mares MD [place] [address] * External Cardiology Result (06/02/2024 9:54 PM EDT) Anatomical Region Laterality Modality Other Historical Provider EXTERNAL CARDIOLO GY RESULT from Last 3 Months Advance Directives * Attempt Cardiopulmonary Resuscitation - Inpatient (Latest Code Status on File) Date Activated Date Inactivated Comments 06/03/2024 1:04 AM 06/21/2024 3:34 PM Question Answer Comments Code Status decision made by: Patient Content of discussion: patient wishes to be Full Code Care Teams Vamp Presser Relationship Specialty Start Date End Date Mauro Berumen MD [address] [place] [id number] PCP - General Family Medicine 06/02/24
--- OUTSIDE RECORDS SUMMARY | 2024-08-04 20:30 | XMS_ITS | Encounter Summary ---
Author Organization [facility] Address [facility] [place] [address] Care Team Providers Care Bar Host/Hostess Name Role Phone Mauro Berumen MD Primary Care Provider [phone] Reason for Referral * Consultation (Routine) - Authorized Specialty Diagnoses / Procedures Referred By Contac t Referred To Contact Cardiology Diagnoses S/P CABG x 3 Bobby Loja MD [facility] [place] [address] Cardiac Rehab, [address] [place] [address] Referral ID Status Reason Start Date Expiration Date Visits Requested Visits Authorized [id number] Authorized Consult, Test & Treat 06/21/2024 12/18/2024 36 36 * Home Health Care (Routine) - Authorized Specialty Diagnoses / Procedures Referred By Contac t Referred To Contact Diagnoses S/P CABG x 3 Bobby Loja MD [facility] [place] [address] Referral ID Status Reason Start Date Expiration Date Visits Requested Visits Authorized [id number] Authorized Consult, Test & Treat 06/21/2024 12/18/2024 999 999 Reason for Visit * Auth/Cert Specialty Diagnoses / Procedures Referred By Contac t Referred To Contact Diagnoses STEMI (ST elevation myocardial infarction) STEMI Procedures CARDIAC CATHETERIZATION EMERGENCY Delroy Monterroso MD [facility] [place] [address] [facility] Referral ID Status Reason Start Date Expiration Date Visits Re quested Visits Authorized [id number] 1 1 Encounter Details Date Type Department Care Team (Late st Contact Info) Description 06/02/2024 11:09 PM EDT - 06/21/2024 1:07 PM EST Hospital Encounter Heart and Vascular Unit Level [address] [place] [address] Nuha Shen MD [facility] [place] [address] Delroy Fofana MD [facility] [address] Melida Valdes MD [facility] [address] Ethel Carrillo MD [facility] [place] [address] Haja Byrnes MD [facility] DR [place] [address] Bobby Loja MD [facility] [place] [address] ST elevation myocardial infarction (STEMI), unspecified artery; Coronary artery disease involving [place] coronary artery of [place] heart without angina pectoris; S/P CABG x 3 Discharge Disposition: Home with VNA Social History Tobacco Use Types Packs/Day Years Used Date Smoking Tobacco: Every Day Cigarettes Smokeless Tobacco: Never Tobacco Cessation:Ready to Q uit: No; Counseling Given: Yes C Utilities Answer Date Recorded In the past 12 months has [employer], [employer], oil, or water [employer] threatened to shut off services in your [...] any time in the past 12 m [facility], were you homeless or living in a care home (including now)? No 06/03/2024 DH IPV Inpatient [...] Sign Reading Time Taken Comments Blood Pressure 126/76 06/21/2024 3:44 AM EST Pulse 94 06/21/2024 3:44 AM EST Temperature 36.3 ??C (97.4 ??F) 06/21/2024 3:44 AM ES T Respiratory Rate 16 06/21/2024 3:44 AM EST Oxygen Saturation 95% 06/21/2024 3:44 AM EST Inhaled Oxygen Concentration - - Weight 96 kg (211 lb 9.6 oz) 06/21/2024 3:44 AM EST Height 167.6 cm (5' 6) 06/02/2024 10:59 PM EDT Body Mass Index 34.15 06/02/2024 10:59 PM EDT documented in this encounter Discharge Summaries * Keila Hanley, MARINE ARCHITECT - 06/21/2024 8:31 AM EST Inpatient - Discharge Summary Patient Name: George Mehta Patient Age: 69 y.o. Birthdate: 1955 Language: Palestinian Race: Choose not to Disclose Ethnicity: Not nor Admit Date: 06/02/2024 Discharge Date: 06/21/2024 Attending Physician: Bobby Loja MD Follow-up Recommendations for Providers: Please continue routine management of cardiovascular risk factors including blood pressure, lipids,glucose, etc. Please note any changes to medications. Patient to follow up with PCP, Mauro Berumen MD, in 1-2 weeks. Patient to follow up with Drawer In Jacquard Loom, Kristen Cardenas in 2-3 weeks. Patient to follow up with Cardiac Surgeon, Dr. Bobby Loja, in 4 wks. Inpatient Provider Contact Information: [facility] of Cardiac Surgery [facility] [place] [address] FAX [phone] Discharge Diagnoses (Hospital Problems) Primary Diagnoses: STEMI MV CAD s/p CABG Secondary Diagnoses: Acute on chronic HFrEF Other Diagnoses (Chronic Problems): There are no active non-hospital problems to display for this patient. Discharged to: Patient discharged to home No past medical history on file. Past Surgical History: Procedure Laterality Date PRO CABG, ARTERIAL, SINGLE N/A 06/14/2024 @CABG, USING ARTERIAL GRAFT;SINGLE ARTERIAL GRAFT (WRVU 33.75) performed by Bobby Loja MD [facility] OR PRO CABG, ARTERY-VEIN, TWO N/A 06/14/2024 @CABG, TWO VENOUS GRAFTS & ARTERIAL GRAFT (WRVU 7.93) performed by Bobby Loja MD at [facility] OR PRO ENDOSCOPY W/VIDEO-ASST VEIN HARVEST, CABG N/A 06/14/2024 ENDOSCOPIC HARVEST VEIN(S) FOR CABG (WRVU 0.31) performed by Bobby Loja MD at [facility] MAIN OR PRO EXC MEDIASTINAL TUMOR N/A 06/14/2024 @EXCISION OF MEDIASTINAL TUMOR (WRVU 19.55) performed by Bobby Loja MD at [facility] MA[facility] OR PRO INSERT INTRA-AORTIC BALLOON ASST DEVICE PERCUTANEOUS N/A 06/13/2024 @INSERTION OF IABP,PERCUTANEOUS (WRVU 4.84) performed by Nuha Shen MD at [facility] CATH LABS PRO UNLISTED CARDIAC SURG PROCEDURE N/A 06/14/2024 EXPLORATION AND OVERSEW ATRIAL APPENDAGE (WRVU 5.94) performed by Bobby Loja MD at [facility] [place] Prior To Admission Medications Medications Prior to Admission Medication Sig Dispense Refill Last Dose metFORMIN (Fortamet) 1,000 mg ER 24 hr tablet Take 1,000 mg by mouth 2 times daily. Past Week carvediloL (Coreg) 12.5 mg tablet Take 12.5 mg by mouth 2 times daily. Past Week atorvastatin (Lipitor) 80 mg tablet Take 80 mg by mouth daily. Past Week cholecalciferol, Vitamin D3, 50 mcg (2,000 unit) Capsule Take 2,000 Units by mouth daily. Past Week aspirin 81 mg chewable tablet Take 81 mg by mouth daily. Past Week escitalopram (Lexapro) 20 mg tablet Take 20 mg by mouth daily. Past Week sacubitriL-valsartan (Entresto) 49-51 mg tablet Take 1 tablet by mouth 2 times daily. Past Week clopidogreL (Plavix) 75 mg tablet Take 75 mg by mouth daily. Past Week empagliflozin (Jardiance) 25 mg tablet Take 25 mg by mouth daily. Past Week glipiZIDE XL (Glucotrol XL) 5 mg ER 24 hr tablet Take 5 mg by mouth daily. Past Week INSULIN DEGLUDEC SUBQ Inject 50 Units subcutaneously daily. Past Week insulin aspart U-100 (NovoLOG Flexpen U-100 Insulin) 100 unit/mL (3 mL) Insulin Pen Inject 20 Unitssubcutaneously 3 times daily (with meals). Past Week Updated Allergies/ADRs: No Known Allergies History of Presentation: George Mehta is a 69 y.o. male with a PMHx of previous MS s/p PCI x3, ICM/HFrEF (LVEF 30%) s/p ICD, DMII, HTN, HLD, remote melanoma, and smoker who presented to [facility] last night via EMS after developing acute, severe chest pain while watching TV. Patient was ruled in for STEMI, given TNK, ASA, plavix, heparin gtt, and sent to [facility] for coronary angiography. LHC demonstrated severely calcified left coronary system with notable LCx 75/80% lesions and JOB COST ESTIMATOR OM1 with ISR with collateral retrograde filling, LAD heavily calcified. IVUS was attempted but unable to pass beyond proximal vessels. No culprit lesion identified. Lasix 40 was given during the procedure. Heparin gtt was continued after. TTE was completed today which demonstrated LVEF 25-30%, grade II diastolic dysfunction, no significant valve disease. Cardiac surgery has been consulted to assess for CABG vs PCI. Patient has not had any chest pain since admission. Currently without complaint. Denies SOB, dizziness, lightheadedness, LE edema, varicosities, or vein stripping. Major Procedures/Operations: 06/02/24: coronary angiography 06/13/24: IABP placement 06/14/24: CABGx3, MARIALUISA exploration, Hospital Course: George Mehta was admitted to [facility] on 06/02/2024 via the [facility] with an anterior STEMI after receiving lytics at OSH. He was brought to the seed laboratory technician which showed severely calcified left coronary system with notable LCx 75/80% lesions and JOB COST ESTIMATOR OM1 with ISR with collateral retrograde filling, LAD heavily calcified. IVUS was attempted but unable to pass beyond proximal vessels. No culprit lesion identified. He was taken off the table and Cardiac Surgery was consulted. He was medically optimized and worked up for CABG. He consented to surgery and had an IABP placed pre-op. He was brought to the operating room the following day where Dr. Bobby Loja performed coronary artery bypass grafting. He tolerated the procedure and was brought to the Cardiovascular Intensive Care Unit for recovery. He initially required the pharmacologic support of intravenous dobutamine. His balloon pump was removed on the day of surgery. He was extubated from the ventilator on the day of surgery. EP interrogated AICD and turned back on high voltage therapies and set pacing to 80bpm DDD from 90bpm. All drips were weaned to off. Routine postoperative and home medications were started. Aspirin and Plavix were continued. Statin therapy was continued. He was started on beta blockade and this was optimized. Diuretics were started and he responded appropriately. He was transferred to the Intermediate Cardiac Care Unit for continued rehabilitation. All tubes, lines, and epicardial pacing wires were removed without incident. He voided normally after his Barr was removed. He was seen by Physical Therapy and Cardiac Rehabilitation. Sternal precaution education was provided. His restrictions include no driving or lifting >10 pounds for 1 month. His discharge plan at this time is to home. The remainder of his hospital course was uneventful and by postoperative day #7 he had met all criteria for discharge. Pain was controlled on oral medications. He had walked 5 minutes and gone up and down stairs. He was tolerating a regular diet and had a bowel movement. Vital Signs at Discharge: Last set of vitals: BP 126/76 (BP Location (NBP): Right arm, Patient Position: Sitting) Pulse 94 Temp 36.3 ??C (97.4 ??F) (Oral) Resp 16 Ht 167.6 cm (5' 6) Wt 96 kg (211 lb 9.6 oz) SpO2 95% BMI 34.15 kg/m?? Patient Vitals for the past 168 hrs: Weight 06/21/24 0344 96 kg (211 lb 9.6 oz) 06/20/24 0300 99 kg (218 lb 3.2 oz) 06/19/24 0614 100.2 kg (220 lb 12.8 oz) 06/18/24 0400 102.3 kg (225 lb 8.5 oz) 06/17/24 0500 103 kg (227 lb 1.2 oz) 06/16/24 0500 101.4 kg (223 lb 8.7 oz) 06/15/24 0556 98.4 kg (216 lb 14.9 oz) Current weight: 96 kg Admit/Preop weight: 94.kg Pertinent physical exam findings prior to discharge: General: NAD, alert and oriented. Neuro: Awake and alert. No gross neurological deficit. Lungs: Non-labored respirations on RA. Heart: RRR, V paced Abdomen: Soft, NTND Ext: wwp, significant tight edema bilateral lower ext to thighs, R>L, improving Incisions: sternotomy CDI, saphenectomy CDI Important Studies and Lab Data: Lab Results Component Value Date WBC 13.53 (H) 06/17/2024 RBC 3.55 (L) 06/17/2024 HGB 10.8 (L) 06/17/2024 HCT 33.0 (L) 06/17/2024 PLATELET 101 (L) 06/17/2024 Recent Labs 06/14/24 1230 INR 1.5 Lab Results Component Value Date NA 138 06/21/2024 K 4.2 06/21/2024 CL 100 06/21/2024 CO2 27 06/21/2024 BUN 27 (H) 06/21/2024 CREATININE 1.24 06/21/2024 Pending Studies and Lab Data: none Smoking Status at Discharge: Social History Tobacco Use Smoking Status Every Day Current packs/day: 0.25 Types: Cigarettes Smokeless Tobacco Never STS Data Medications: Pre-operative beta erik? Given Discharge beta erik? Given Discharge lipid therapy? Given Discharge anti-platelet therapy? Given Discharge ROSSANA or ARB restarted? Restarted Discharge Medications: Your Medications New Medications Dose Details acetaminophen 325 mg tablet Commonly known as: Tylenol Take 3 tablets by mouth every 6 hours as needed for Pain. 975 mg Refills: 0 furosemide 20 mg tablet Commonly known as: Lasix Take 1 tablet by mouth daily. 20 mg Quantity: 30 tablet Refills: 3 guaiFENesin ER 600 mg ER 12 hr tablet Commonly known as: Mucinex Take 1 tablet by mouth every 12 hours. 600 mg Quantity: 10 tablet Refills: 0 Insulin Tresiba FlexTouch U-100 100 unit/mL (3 mL) Insulin Pen Inject 30 Units subcutaneously daily. Indications: type 2 diabetes mellitus Generic drug: insulin degludec Replaces: INSULIN DEGLUDEC SUBQ 30 Units Refills: 0 Continued medications, unchanged Dose Details aspirin 81 mg chewable tablet Take 81 mg by mouth daily. 81 mg Refills: 0 atorvastatin 80 mg tablet Commonly known as: Lipitor Take 80 mg by mouth daily. 80 mg Refills: 0 carvediloL 12.5 mg tablet Commonly known as: Coreg Take 12.5 mg by mouth 2 times daily. 12.5 mg Refills: 0 cholecalciferol (Vitamin D3) 50 mcg (2,000 unit) Capsule Take 2,000 Units by mouth daily. 2,000 Units Refills: 0 clopidogreL 75 mg tablet Commonly known as: Plavix Take 75 mg by mouth daily. 75 mg Refills: 0 Entresto 49-51 mg tablet Take 1 tablet by mouth 2 times daily. Generic drug: sacubitriL-valsartan 1 tablet Refills: 0 escitalopram 20 mg tablet Commonly known as: Lexapro Take 20 mg by mouth daily. 20 mg Refills: 0 Jardiance 25 mg tablet Take 25 mg by mouth daily. Generic drug: empagliflozin 25 mg Refills: 0 metFORMIN 1,000 mg ER 24 hr tablet Commonly known as: Fortamet Take 1,000 mg by mouth 2 times daily. 1,000 mg Refills: 0 NovoLOG Flexpen U-100 Insulin 100 unit/mL (3 mL) Insulin Pen Inject 20 Units subcutaneously 3 times daily (with meals). Generic drug: insulin aspart U-100 20 Units Refills: 0 STOPPED Medications glipiZIDE XL 5 mg ER 24 hr tablet Commonly known as: Glucotrol XL INSULIN DEGLUDEC SUBQ Replaced by: Insulin Tresiba FlexTouch U-100 100 unit/mL (3 mL) Insulin Pen Instructions Given to Patient at Discharge: General Instructions Preliminary Diabetes Discharge Instructions Continue your Jardiance 25mg daily. Make sure you are eating and drinking well on this medication. It should not be taken if you have decreased oral intake. Continue your home metformin dose 1000mg twice daily with your meals. You should have blood work every 6 months while taking this medication to monitor your kidney function. STOP your Glipizide. This medication should be discontinued when using short acting insulin due to increased risk of hypoglycemia. This medication is generally also discontinued at age 65, also due to increased risks associated with low blood sugars. This was likely the cause of your hypoglycemia prior to your admission. Blood Sugar Checks : Continue to use your CGM for glucose monitoring: Every day, please check your blood sugar at these 4 times 1) Before eating breakfast (aka your fasting blood sugar) 2) Before eating lunch 3) Before eating dinner 4) Before going to bed If you have symptoms of low blood sugar or high blood sugar, please check your blood sugar an additional time Daily Long-Acting Insulin Instructions Your Long-acting insulin is called Tresiba Take 30 units of long acting insulin in the morning. If you prefer to take this in the evening you can take 2-3 hours later each day until you are at your preferred administration time. We administered your long acting insulin last on 06/21/24 at 0830. Adjust your long-acting insulin dose as needed according to the following guidelines: If your fasting blood sugars are above 150mg/dl two days in a row, please increase your long-actinginsulin by 2 units. This increased dose becomes your new dose, continue to increase as needed every2-3 days (you can add one unit onto am dose and one unit onto pm dose) If your fasting blood sugars are below 90mg/dl two days in a row, please decrease your long-acting insulin by 2 units. This lower dose becomes your new dose, continue to decrease as needed. Daily Short-Acting Insulin Instructions: Your Short-acting insulin is called Humalog. You have needed between 7 to 15 units of this short acting insulin before your meals. I suggest you use a fixed dose at home - though adjusting this dose if your blood sugars are below 100 or greater than 140 at the start of your meal (see scale below) INSULIN COVERAGE FOR CARBOHYDRATE INTAKE (aka, carb count or meal-associated insulin coverage) : Before each meal, check your blood glucose (BG). We assume you will need a fixed dose of about 10 units of humalog, ADJUST YOUR MEAL INSULIN BASED ON YOUR BLOOD GLUCOSE BEFORE YOUR MEAL BG under 80 Subtract 2 units from your food dose, eat right away and administer 8 units humalog after you eat. BG 80 - 100 Subtract 1 unit from your food dose and give 9 units just before eating. BG 100 - 140 Give your meal dose 10 units 5 - 10 minutes before you eat, only if eating; BG 140 - 160 ADD 1 unit - administer 11 units before eating BG 161 - 180 ADD 2 units - administer 12 units before eating BG 181 - 200 ADD 3 units - administer 13 units before eating BG 201 - 220 ADD 4 units- administer 14 units before eating BG 221 - 240 ADD 5 units - administer 15 units before eating BG 241 - 260 ADD 6 units- administer 16 units before eating BG 261 - 280 ADD 7 units- administer 17 units before eating . Treatment of Low Blood Sugar (Hypoglycemia) 15:15 rule - if your blood sugars is under 80, eat 15g of sugar, and recheck your blood sugar in 15minutes. If you continue to be under 80 after 15 minutes, eat 15g of sugar more, and repeat. If BG is over 100 on recheck, no need to consume more sugar, and recheck BG in another 15 minutes. If your BG is lower than 80, you are likely to feel shaky, sweaty and lightheaded. This is a signalthat your body needs more sugar. Quickly eat or drink a 15g of something sweet, such as: 4 ounces fruit juice or regular (not diet) soda 6 lifesavers small box of raisins 4 glucose tablets (~15 gm of glucose) If your BG is very low <50, you can double the amount above or take 30 gm of glucose gel/tablets. Once you are feeling better, try to determine why your BG was so low. Common causes of hypoglycemiainclude skipping a meal, lots of exercise, too much insulin or any combination of these things. Understanding the cause my help you to avoid another low BG in the future. Test blood sugars prior to driving, make sure glucose levels are greater than 100mg/dl. If not havea snack and retest blood sugars in 15 minutes. Carry a quick acting glucose source on you at all times. Call your diabetes provider OR PCP for blood sugars less than 80 or greater than 300 twice in one day to have your insulin doses adjusted. What should you know about eating carbohydrates? Managing the amount of carbohydrate (carbs) you eat is an important part of healthy meals when you have diabetes. Carbohydrate is found in many foods. Learn which foods have carbs. And learn the amounts of carbs in different foods. Bread, cereal, pasta, and rice have about 15 grams of carbs in a serving. A serving is 1 slice of bread (1 ounce), ?? cup of cooked cereal, or 1/3 cup of cooked pasta or rice. Fruits have 15 grams of carbs in a serving. A serving is 1 small fresh fruit, such as an apple or orange; ?? of a banana; ?? cup of cooked or canned fruit; ?? cup of fruit juice; 1 cup of melon or raspberries; or 2 tablespoons of dried fruit. Milk and zr-mpcus-nofrt yogurt have 15 grams of carbs in a serving. A serving is 1 cup of milk or 3/4 cup (6 oz) of fd-[id number]-ivqxu yogurt. Starchy vegetables have 15 grams of carbs in a serving. A serving is ?? cup of mashed potatoes or sweet potato; 1 cup winter squash; ?? of a small baked potato; ?? cup of cooked beans; or ?? cup cooked corn or green peas. Learn how much carbs to eat each day and at each meal. A dietitian or certified hearing instrument dispenser can teach you how to keep track of the amount of carbs you eat. This is called carbohydrate counting. If you are not sure how to count carbohydrate grams, use the plate method to plan meals. It is a quick way to make sure that you have a balanced meal. It also can help you manage the amount of carbohydrate you eat at meals. Divide your plate by types of foods. Put non-starchy vegetables on half the plate, meat or other protein food on one-quarter of the plate, and a grain or starchy vegetable in the final quarter of theplate. To this you can add a small piece of fruit and 1 cup of milk or yogurt, depending on how many carbs you are supposed to eat at a meal. Try to eat about the same amount of carbs at each meal. Do not save up your daily allowance of carbs to eat at one meal. Proteins have very little or no carbs. Examples of proteins are beef, chicken, turkey, fish, eggs, tofu, cheese, cottage cheese, and peanut butter. Cardiac Surgery Discharge Instructions: Call your doctor if: You have a fever of greater than 101 degrees, shaking chills, if you develop redness or drainage from your incision sites, or if you have questions. Please call your surgeon's office if you have any discharge or drainage from your chest incision. Your surgeon, Dr. Bobby Loja and/or the Cardiac Surgery Physician Radio Engineer Team may be reached at . Weight: Weigh yourself daily. Please call the office if you notice increasing weight, increasing fluid retention (edema), and/or SOB. Sternal (breast bone) precautions: No lifting greater than 7-10 pounds; no pushing or pulling with upper extremities; no excessive chest stretching for the first 4 weeks. Further instructions will begiven to you at your follow-up appointment. Activity level: Walk three times a day. You should continue to increase your walks by 1-2 minutes each day. It is expected that you will be walking 20-30 minutes twice a day within 3-4 weeks after discharge to home. Rest between activities and after meals. Use common sense, don't exhaust yourself. Biking: You may use a stationary bicycle whenever you are comfortable enough to permit this. Tighten the resistance slightly. Increase the amount of time on the bicycle as you would do for your walks, a minute or two each day. No biking outside until after your return appointment with Dr. Bobby Loja. You may use a [place] or treadmill but avoid any pulling motion with the arms. Home activities: You may do light housework, e.g. dusting, setting the table, washing dishes, preparing a meal. Light carpentry and gardening are allowed. Avoid trying to open tight jars and stuck windows. No vacuuming, mopping, raking, shoveling, digging or hoeing until after your return visit with the surgeon. Sexual activity: You may engage in sexual activity when you feel ready. Use a position that protects your sternum (breastbone). Do not have your partner lie on your chest. Stairs: There are no restrictions on stair climbing. Use common sense. Don't exhaust yourself. Activities outside the home: After the first week home you may go out to dinner, visit friends, go to a movie, go to faith, etc. Heavy activities: No hunting, skiing, jogging, snow shoveling, snowmobiling, lawn mowing, swimming,golf or tennis until after your return appointment with the surgeon. Do not ride motorcycles, ATV'stractors or horses. Avoid the use of a rifle with kickback against the shoulder for six months. Sleep: Try to establish normal sleep patterns. Long naps during the day may make it hard for you tosleep at night. Use the pain medication at bedtime for the first week at home. Smoking: It is very important that you not smoke after surgery. Smoking cessation education was provided as appropriate. If you need further assistance with this please call and you will be referred to a smoking cessation specialist. Medications: Take only those medications listed on your discharge information. Keep your pain undercontrol so you can be active, do your coughing and breathing exercises and sleep. Contact us if thepain medication isn't working for you. Do not take any herbal preparations until after you return to see the surgeon. Special Physician Instructions: DO NOT USE ANY IBUPROFEN (ADVIL, MOTRIN, ETC) OR OTHER NSAIDS (NONSTEROIDAL ANTI-INFLAMMATORY DRUGS) FOR A TOTAL OF 10 DAYS AFTER SURGERY. PLEASE CONTACT THE CARDIOTHORACIC SURGERY OFFICE IF YOU HAVE QUESTIONS ABOUT WHICH DRUGS YOU SHOULD NOT USE. . Diet: You should follow a regular diet until your appetite returns to normal. At that point in timeyou should resume a low fat, low cholesterol, [place] Heart [employer] Diet/Diabetic diet. Driving: No driving until cleared by your surgeon. Avoid long trips if possible. If you must go on a long trip, stop the car and walk every hour. Shower/Bath: You may shower daily. No baths, soaking, or swimming until cleared by your surgeon. Wound care: Wash your incisions daily with soap and rinse well, pat dry. Assess for any signs of infection such as increased redness, pain, warmth or drainage. Please call your surgeon's office if you have any discharge or drainage from your chest incision. If there is a lot of swelling, apply rossana wraps during the day and remove at bedtime. Elevate your legs when you are sitting. MEDICATION REFILL REQUESTS - Please note that Cardiac Surgery will not maintain regular refill requests for your medications as these can change during and after your recovery while being managed by your PCP and/or [facility]. For future medication refills, please refer to your PCP and/or [facility] after your discharge from our service. Thank you REMOVE CHEST TUBE SUTURES ON OR AFTER 06/24/2024 Home oxygen therapy: N/A Follow up appointments: You should follow up with your PCP, Mauro Berumen MD, in 1-2 weeks. You should follow up with your [facility], Dr CARDENAS. You have an appointment with your Cardiac Surgeon, Dr. Bobby Loja, in 4 wks. Cardiac Rehabilitation: George Mehta was seen today regarding participation in the outpatient Phase 2 Cardiac Rehabilitation at [facility]. The patient agrees to a referral to this program. The referral will be sent at discharge and the patient should be contacted by the program within 1-2 weeks from discharge. Future Appointments and Orders Future Orders Complete By Expires Referral to Cardiac Rehab [EUR261 Custom] As directed Process Instructions: If no progress note charted, please enter Clinical details in comments. Scheduling Instructions: Questions: My question or request is: s/p CABG- cardiac rehab at [facility] Referral to Home Health [REF34 Custom] As directed Process Instructions: If no progress note charted, please enter Clinical details in comments. Scheduling Instructions: Comments: Please evaluate George Mehta for admission to Home Health. [address] [facility] [address] (home) Date of : 1955 Inpatient DOCUMENTATION FOR VNA SERVICES (INCLUDING THOSE PATIENTS WITH MEDICARE COVERAGE REQUIRINGHOME VNA SERVICES AND/OR HOSPICE SERVICES) PATIENT'S LOCATION: George Mehta [address] [facility] [address] (home) Telephone Information: Flat Folder's Name: self In discussion with the attending physician, it is certified that this patient is under their care and that they, or a Nurse Practitioner, or Physician Radio Engineer who is working directly with them, hada face to face encounter that meets the physician face to face encounter requirements with this patient on 06/21/2024 The encounter with the patient was in whole, or in part, for the following medical condition, whichis the primary reason for home health care services: s/p cabg In discussion with the provider, it is certified that, based on their findings, the following services are medically necessary for home health services. To provide the following care/treatments with the clinical findings supporting the need for services as follows: HOME HEALTH AGENCY: [facility] [address] [address] RN orders: Cardiopulmonary assessment, incisional assessment, assess vital signs, assessment of rehab progress, medication management and effectiveness, home safety evaluation. Chest Tube Suture Removal Date 06/24/2024 PT ORDERS: Continue rehab for endurance, gait stability and strength with mobility and transfers. Home safety evaluation. Home exercise program if appropriate. Start of Care Date:24-48 hours from discharge SPECIAL INSTRUCTIONS: For any follow up questions, needs, or issues please call the Cardiology Office at [phone] FOR MEDICARE ONLY: (please delete this section if not Medicare) In discussion with the attending physician, it is certified that the clinical findings support thatthis patient is homebound i.e. absences from home require considerable and taxing effort due to: Restricted mobility and poor activity tolerance due to recent cardiac surgery. Patient requires assistance of another person to leave the home. Home Health agencies which cover the area of patient's residence have been reviewed, either verbally or in writing, and patient/family have chosen the agency as noted. In discussion with the attending physician, it is certified that the clinical findings support thatthis patient is homebound because absences from home require considerable and taxing effort due to:Restricted mobility due to lower extremity strength and motion due to recent surgery. Questions: Disciplines Requested: Nursing Physical Therapy Arrangements for VNA/home care: As above. Signed: KEILA HANLEY APRN [facility] [place] [address] FAX [phone] Date: 06/21/2024 CC: MD Antonino Tinajero Joshua R, PA [address] [place] [address] [place] [address] documented in this encounter Discharge Instructions * Discharge Instructions* Keila Hanley APRN - 06/19/2024 9:22 AM EST * Patient Instructions* Keila Hanley APRN - 06/21/2024 8:47 AM EST General Instructions Preliminary Diabetes Discharge Instructions Continue your Jardiance 25mg daily. Make sure you are eating and drinking well on this medication. It should not be taken if you have decreased oral intake. Continue your home metformin dose 1000mg twice daily with your meals. You should have blood work every 6 months while taking this medication to monitor your kidney function. STOP your Glipizide. This medication should be discontinued when using short acting insulin due to increased risk of hypoglycemia. This medication is generally also discontinued at age 65, also due to increased risks associated with low blood sugars. This was likely the cause of your hypoglycemia prior to your admission. Blood Sugar Checks : Continue to use your CGM for glucose monitoring: Every day, please check your blood sugar at these 4 times 1) Before eating breakfast (aka your fasting blood sugar) 2) Before eating lunch 3) Before eating dinner 4) Before going to bed If you have symptoms of low blood sugar or high blood sugar, please check your blood sugar an additional time Daily Long-Acting Insulin Instructions Your Long-acting insulin is called Vannessa Take 30 units of long acting insulin in the morning. If you prefer to take this in the evening you can take 2-3 hours later each day until you are at your preferred administration time. We administered your long acting insulin last on 06/21/24 at 0830. Adjust your long-acting insulin dose as needed according to the following guidelines: If your fasting blood sugars are above 150mg/dl two days in a row, please increase your long-actinginsulin by 2 units. This increased dose becomes your new dose, continue to increase as needed every2-3 days (you can add one unit onto am dose and one unit onto pm dose) If your fasting blood sugars are below 90mg/dl two days in a row, please decrease your long-acting insulin by 2 units. This lower dose becomes your new dose, continue to decrease as needed. Daily Short-Acting Insulin Instructions: Your Short-acting insulin is called Humalog. You have needed between 7 to 15 units of this short acting insulin before your meals. I suggest you use a fixed dose at home - though adjusting this dose if your blood sugars are below 100 or greater than 140 at the start of your meal (see scale below) INSULIN COVERAGE FOR CARBOHYDRATE INTAKE (aka, carb count or meal-associated insulin coverage) : Before each meal, check your blood glucose (BG). We assume you will need a fixed dose of about 10 units of humalog, ADJUST YOUR MEAL INSULIN BASED ON YOUR BLOOD GLUCOSE BEFORE YOUR MEAL BG under 80 Subtract 2 units from your food dose, eat right away and administer 8 units humalog after you eat. BG 80 - 100 Subtract 1 unit from your food dose and give 9 units just before eating. BG 100 - 140 Give your meal dose 10 units 5 - 10 minutes before you eat, only if eating; BG 140 - 160 ADD 1 unit - administer 11 units before eating BG 161 - 180 ADD 2 units - administer 12 units before eating BG 181 - 200 ADD 3 units - administer 13 units before eating BG 201 - 220 ADD 4 units- administer 14 units before eating BG 221 - 240 ADD 5 units - administer 15 units before eating BG 241 - 260 ADD 6 units- administer 16 units before eating BG 261 - 280 ADD 7 units- administer 17 units before eating . Treatment of Low Blood Sugar (Hypoglycemia) 15:15 rule - if your blood sugars is under 80, eat 15g of sugar, and recheck your blood sugar in 15minutes. If you continue to be under 80 after 15 minutes, eat 15g of sugar more, and repeat. If BG is over 100 on recheck, no need to consume more sugar, and recheck BG in another 15 minutes. If your BG is lower than 80, you are likely to feel shaky, sweaty and lightheaded. This is a signalthat your body needs more sugar. Quickly eat or drink a 15g of something sweet, such as: 4 ounces fruit juice or regular (not diet) soda 6 lifesavers small box of raisins 4 glucose tablets (~15 gm of glucose) If your BG is very low <50, you can double the amount above or take 30 gm of glucose gel/tablets. Once you are feeling better, try to determine why your BG was so low. Common causes of hypoglycemiainclude skipping a meal, lots of exercise, too much insulin or any combination of these things. Understanding the cause my help you to avoid another low BG in the future. Test blood sugars prior to driving, make sure glucose levels are greater than 100mg/dl. If not havea snack and retest blood sugars in 15 minutes. Carry a quick acting glucose source on you at all times. Call your diabetes provider OR PCP for blood sugars less than 80 or greater than 300 twice in one day to have your insulin doses adjusted. What should you know about eating carbohydrates? Managing the amount of carbohydrate (carbs) you eat is an important part of healthy meals when you have diabetes. Carbohydrate is found in many foods. Learn which foods have carbs. And learn the amounts of carbs in different foods. Bread, cereal, pasta, and rice have about 15 grams of carbs in a serving. A serving is 1 slice of bread (1 ounce), ?? cup of cooked cereal, or 1/3 cup of cooked pasta or rice. Fruits have 15 grams of carbs in a serving. A serving is 1 small fresh fruit, such as an apple or orange; ?? of a banana; ?? cup of cooked or canned fruit; ?? cup of fruit juice; 1 cup of melon or raspberries; or 2 tablespoons of dried fruit. Milk and tb-nbimm-gmpzg yogurt have 15 grams of carbs in a serving. A serving is 1 cup of milk or 3/4 cup (6 oz) of yo-iseyd-tqlwb yogurt. Starchy vegetables have 15 grams of carbs in a serving. A serving is ?? cup of mashed potatoes or sweet potato; 1 cup winter squash; ?? of a small baked potato; ?? cup of cooked beans; or ?? cup cooked corn or green peas. Learn how much carbs to eat each day and at each meal. A dietitian or certified hearing instrument dispenser can teach you how to keep track of the amount of carbs you eat. This is called carbohydrate counting. If you are not sure how to count carbohydrate grams, use the plate method to plan meals. It is a quick way to make sure that you have a balanced meal. It also can help you manage the amount of carbohydrate you eat at meals. Divide your plate by types of foods. Put non-starchy vegetables on half the plate, meat or other protein food on one-quarter of the plate, and a grain or starchy vegetable in the final quarter of theplate. To this you can add a small piece of fruit and 1 cup of milk or yogurt, depending on how many carbs you are supposed to eat at a meal. Try to eat about the same amount of carbs at each meal. Do not save up your daily allowance of carbs to eat at one meal. Proteins have very little or no carbs. Examples of proteins are beef, chicken, turkey, fish, eggs, tofu, cheese, cottage cheese, and peanut butter. Cardiac Surgery Discharge Instructions: Call your doctor if: You have a fever of greater than 101 degrees, shaking chills, if you develop redness or drainage from your incision sites, or if you have questions. Please call your surgeon's office if you have any discharge or drainage from your chest incision. Your surgeon, Dr. Bobby Loja and/or the Cardiac Surgery Physician Radio Engineer Team may be reached at . Weight: Weigh yourself daily. Please call the office if you notice increasing weight, increasing fluid retention (edema), and/or SOB. Sternal (breast bone) precautions: No lifting greater than 7-10 pounds; no pushing or pulling with upper extremities; no excessive chest stretching for the first 4 weeks. Further instructions will begiven to you at your follow-up appointment. Activity level: Walk three times a day. You should continue to increase your walks by 1-2 minutes each day. It is expected that you will be walking 20-30 minutes twice a day within 3-4 weeks after discharge to home. Rest between activities and after meals. Use common sense, don't exhaust yourself. Biking: You may use a stationary bicycle whenever you are comfortable enough to permit this. Tighten the resistance slightly. Increase the amount of time on the bicycle as you would do for your walks, a minute or two each day. No biking outside until after your return appointment with Dr. Bobby Loja. You may use a [place] or treadmill but avoid any pulling motion with the arms. Home activities: You may do light housework, e.g. dusting, setting the table, washing dishes, preparing a meal. Light carpentry and gardening are allowed. Avoid trying to open tight jars and stuck windows. No vacuuming, mopping, raking, shoveling, digging or hoeing until after your return visit with the surgeon. Sexual activity: You may engage in sexual activity when you feel ready. Use a position that protects your sternum (breastbone). Do not have your partner lie on your chest. Stairs: There are no restrictions on stair climbing. Use common sense. Don't exhaust yourself. Activities outside the home: After the first week home you may go out to dinner, visit friends, go to a movie, go to faith, etc. Heavy activities: No hunting, skiing, jogging, snow shoveling, snowmobiling, lawn mowing, swimming,golf or tennis until after your return appointment with the surgeon. Do not ride motorcycles, ATV'stractors or horses. Avoid the use of a rifle with kickback against the shoulder for six months. Sleep: Try to establish normal sleep patterns. Long naps during the day may make it hard for you tosleep at night. Use the pain medication at bedtime for the first week at home. Smoking: It is very important that you not smoke after surgery. Smoking cessation education was provided as appropriate. If you need further assistance with this please call and you will be referred to a smoking cessation specialist. Medications: Take only those medications listed on your discharge information. Keep your pain undercontrol so you can be active, do your coughing and breathing exercises and sleep. Contact us if thepain medication isn't working for you. Do not take any herbal preparations until after you return to see the surgeon. Special Physician Instructions: DO NOT USE ANY IBUPROFEN (ADVIL, MOTRIN, ETC) OR OTHER NSAIDS (NONSTEROIDAL ANTI-INFLAMMATORY DRUGS) FOR A TOTAL OF 10 DAYS AFTER SURGERY. PLEASE CONTACT THE CARDIOTHORACIC SURGERY OFFICE IF YOU HAVE QUESTIONS ABOUT WHICH DRUGS YOU SHOULD NOT USE. . Diet: You should follow a regular diet until your appetite returns to normal. At that point in timeyou should resume a low fat, low cholesterol, [place] Heart [employer] Diet/Diabetic diet. Driving: No driving until cleared by your surgeon. Avoid long trips if possible. If you must go on a long trip, stop the car and walk every hour. Shower/Bath: You may shower daily. No baths, soaking, or swimming until cleared by your surgeon. Wound care: Wash your incisions daily with soap and rinse well, pat dry. Assess for any signs of infection such as increased redness, pain, warmth or drainage. Please call your surgeon's office if you have any discharge or drainage from your chest incision. If there is a lot of swelling, apply rossana wraps during the day and remove at bedtime. Elevate your legs when you are sitting. MEDICATION REFILL REQUESTS - Please note that Cardiac Surgery will not maintain regular refill requests for your medications as these can change during and after your recovery while being managed by your PCP and/or [facility]. For future medication refills, please refer to your PCP and/or [facility] after your discharge from our service. Thank you REMOVE CHEST TUBE SUTURES ON OR AFTER 06/24/2024 Home oxygen therapy: N/A Follow up appointments: You should follow up with your PCP, Mauro Berumen MD, in 1-2 weeks. You should follow up with your [facility], Dr CARDENAS. You have an appointment with your Cardiac Surgeon, Dr. Bobby Loja, in 4 wks. Cardiac Rehabilitation: George Mehta was seen today regarding participation in the outpatient Phase 2 Cardiac Rehabilitation at [facility]. The patient agrees to a referral to this program. The referral will be sent at discharge and the patient should be contacted by the program within 1-2 weeks from discharge. documented in this encounter Medications at Time of Discharge Medication Sig Dispensed Refills Start Date End Date acetaminophen (Tylenol) 325 mg tablet Take 3 tablets by mouth every 6 hours as needed for Pain. 06/21/2024 furosemide (Lasix) 20 mg tablet Take 1 tablet by mouth daily. 30 tablet 3 06/21/2024 guaiFENesin ER (Mucinex) 600 mg ER 12 hr tablet Take 1 tablet by mouth every 12 hours. 10 tablet 06/21/2024 Insulin Tresiba FlexTouch U-100 100 unit/mL (3 mL) Insulin PenIndications:type 2 diabetes mellitus Inject 30 Units subcutaneously daily. Indications: type 2 diabetes mellitus 06/21/2024 metFORMIN (Fortamet) 1,000 mg ER 24 hr [...] Units subcutaneously 3 times daily (with meals). documented as of this encounter Progress Notes * Delio See RN - 06/21/2024 8:32 AM EST During VAS Purposeful Rounding, an assessment of your patient's venous access was [facility] the[facility] Access Service. The following tasks were performed if needed and communicated to the bedside RN Choose all that apply: [x] PIV(s) checked for patency if daily need for flush needs to be performed [] CVAD was checked for patency if daily flush needs to be performed [x] IV tubing clamped or capped if needed [] Visual inspection of your patient's central line dressing integrity [x] Review of indications for vascular access [] A photo was taken of your patient's central line [x] Visual inspection of your patient's IV dressing integrity [] Other While rounding an intervention was needed and communicated to the bedside RN Choose all that apply: [] Nonocclusive IV dressing addressed [] Nonocclusive CVAD dressing (please identify type of line) [] Infusion site leaking [] IV not patent and removed [] IV not indicated [] IV placed [] IV restarted [] Implanted Port, PICC or ML dressing changed if needed (either PRN or weekly) [] Other * Delio See RN - 06/21/2024 8:31 AM EST During VAS Purposeful Rounding, an assessment of your patient's venous access was performed fb theVascular Access Service. The following tasks were performed if needed and communicated to the bedside RN Choose all that apply: [x] PIV(s) checked for patency if daily need for flush needs to be performed [] CVAD was checked for patency if daily flush needs to be performed [x] IV tubing clamped or capped if needed [] Visual inspection of your patient's central line dressing integrity [x] Review of indications for vascular access [] A photo was taken of your patient's central line [x] Visual inspection of your patient's IV dressing integrity [] Other While rounding an intervention was needed and communicated to the bedside RN Choose all that apply: [] Nonocclusive IV dressing addressed [] Nonocclusive CVAD dressing (please identify type of line) [] Infusion site leaking [] IV not patent and removed [] IV not indicated [] IV placed [] IV restarted [] Implanted Port, PICC or ML dressing changed if needed (either PRN or weekly) [] Other * Alejandra Baumann APRN - 06/21/2024 7:05 AM EST Follow Up Diabetes Consult Patient Interview Blood glucose values and insulin use reviewed. BG to 67 before MN. TDD insulin 61 units in additionto his Jardiance 25mg. Decreasing glargine to 30 units, closer to preferred 50/50 basal/bolus split. Objective Temp: [36.3 ??C (97.4 ??F)-36.6 ??C (97.8 ??F)] Heart Rate: [82-100] Resp: [14-16] BP: (108-127)/(62-77) SpO2: [95 %-98 %] Heart Rate from SpO2: [85 bpm-100 bpm] Current Regimen from previous note Lantus:DECREASED to 35 units Lispro 1:5 insulin to carbohydrate ratio Lispro for correction q 4 hours based on a correction factor of 15 Diet CC Monitoring:Q4 Recent Glucose Levels Recent Labs 06/21/24 0351 06/21/24 0004 06/20/24 2314 06/20/24 1916 06/20/24 1539 06/20/24 1202 06/20/24 0710 06/20/24 0032 06/20/24 0002 06/19/24 2015 06/19/24 1801 06/19/24 1651 POCGLU 142 157 67 132 124 173 130 86 59* 131 129 155 ASSESSMENT George Mehta is a 69 y.o. male with a history of CAD s/p multiple PCI who presented with an anterior STEMI and was given lytics. Cath showed MV CAD without culprit vessel. He is now 1 Day Post-Op CABGx3 and MARIALUISA clipping. PMH of chronic HFrEF s/p DISEASE AND INSECT CONTROL BOSS/ICD, IDDM2, HTN, HLD, remote melanoma, active smoker. BG to 67 before MN. TDD insulin 61 units in addition to his Jardiance 25mg. Decreasing glargine to 30 units, closer to preferred 50/50 basal/bolus split. PLAN Lantus:DECREASED to 30 units Lispro 1:5 insulin to carbohydrate ratio Lispro for correction q 4 hours based on a correction factor of 15 Diet CC Monitoring:Q4 Discharge Considerations: A1C 7.1%, Home regimen Medications: Jardiance 25mg, Glipizide 10mg, Tresiba U 100 50 units nightly, Humalog 20 units TID ac, metformin 1000mg BID Hypoglycemia 2-3 x weekly, has CGM alarm to alert him, meal dosing is high compared to dosing during admission, consider lower fixed dose + correction scale, example 10 units + correction over 150 before meals based on ISF 20 Preliminary Diabetes Discharge Instructions Continue your Jardiance 25mg daily. Make sure you are eating and drinking well on this medication. It should not be taken if you have decreased oral intake. Continue your home metformin dose 1000mg twice daily with your meals. You should have blood work every 6 months while taking this medication to monitor your kidney function. STOP your Glipizide. This medication should be discontinued when using short acting insulin due to increased risk of hypoglycemia. This medication is generally also discontinued at age 65, also due to increased risks associated with low blood sugars. This was likely the cause of your hypoglycemia prior to your admission. Blood Sugar Checks : Continue to use your CGM for glucose monitoring: Every day, please check your blood sugar at these 4 times 1) Before eating breakfast (aka your fasting blood sugar) 2) Before eating lunch 3) Before eating dinner 4) Before going to bed If you have symptoms of low blood sugar or high blood sugar, please check your blood sugar an additional time Daily Long-Acting Insulin Instructions Your Long-acting insulin is called Vannessa Take 30 units of long acting insulin in the morning. If you prefer to take this in the evening you can take 2-3 hours later each day until you are at your preferred administration time. We administered your long acting insulin last on 06/19/24 at 0830. Adjust your long-acting insulin dose as needed according to the following guidelines: If your fasting blood sugars are above 150mg/dl two days in a row, please increase your long-actinginsulin by 2 units. This increased dose becomes your new dose, continue to increase as needed every2-3 days (you can add one unit onto am dose and one unit onto pm dose) If your fasting blood sugars are below 90mg/dl two days in a row, please decrease your long-acting insulin by 2 units. This lower dose becomes your new dose, continue to decrease as needed. Daily Short-Acting Insulin Instructions: Your Short-acting insulin is called Humalog. You have needed between 7 to 15 units of this short acting insulin before your meals. I suggest you use a fixed dose at home - though adjusting this dose if your blood sugars are below 100 or greater than 140 at the start of your meal (see scale below) INSULIN COVERAGE FOR CARBOHYDRATE INTAKE (aka, carb count or meal-associated insulin coverage) : Before each meal, check your blood glucose (BG). We assume you will need a fixed dose of about 10 units of humalog, ADJUST YOUR MEAL INSULIN BASED ON YOUR BLOOD GLUCOSE BEFORE YOUR MEAL BG under 80 Subtract 2 units from your food dose, eat right away and administer 8 units humalog after you eat. BG 80 - 100 Subtract 1 unit from your food dose and give 9 units just before eating. BG 100 - 140 Give your meal dose 10 units 5 - 10 minutes before you eat, only if eating; BG 140 - 160 ADD 1 unit - administer 11 units before eating BG 161 - 180 ADD 2 units - administer 12 units before eating BG 181 - 200 ADD 3 units - administer 13 units before eating BG 201 - 220 ADD 4 units- administer 14 units before eating BG 221 - 240 ADD 5 units - administer 15 units before eating BG 241 - 260 ADD 6 units- administer 16 units before eating BG 261 - 280 ADD 7 units- administer 17 units before eating . Treatment of Low Blood Sugar (Hypoglycemia) 15:15 rule - if your blood sugars is under 80, eat 15g of sugar, and recheck your blood sugar in 15minutes. If you continue to be under 80 after 15 minutes, eat 15g of sugar more, and repeat. If BG is over 100 on recheck, no need to consume more sugar, and recheck BG in another 15 minutes. If your BG is lower than 80, you are likely to feel shaky, sweaty and lightheaded. This is a signalthat your body needs more sugar. Quickly eat or drink a 15g of something sweet, such as: 4 ounces fruit juice or regular (not diet) soda 6 lifesavers small box of raisins 4 glucose tablets (~15 gm of glucose) If your BG is very low <50, you can double the amount above or take 30 gm of glucose gel/tablets. Once you are feeling better, try to determine why your BG was so low. Common causes of hypoglycemiainclude skipping a meal, lots of exercise, too much insulin or any combination of these things. Understanding the cause my help you to avoid another low BG in the future. Test blood sugars prior to driving, make sure glucose levels are greater than 100mg/dl. If not havea snack and retest blood sugars in 15 minutes. Carry a quick acting glucose source on you at all times. Call your diabetes provider OR PCP for blood sugars less than 80 or greater than 300 twice in one day to have your insulin doses adjusted. What should you know about eating carbohydrates? Managing the amount of carbohydrate (carbs) you eat is an important part of healthy meals when you have diabetes. Carbohydrate is found in many foods. Learn which foods have carbs. And learn the amounts of carbs in different foods. Bread, cereal, pasta, and rice have about 15 grams of carbs in a serving. A serving is 1 slice of bread (1 ounce), ?? cup of cooked cereal, or 1/3 cup of cooked pasta or rice. Fruits have 15 grams of carbs in a serving. A serving is 1 small fresh fruit, such as an apple or orange; ?? of a banana; ?? cup of cooked or canned fruit; ?? cup of fruit juice; 1 cup of melon or raspberries; or 2 tablespoons of dried fruit. Milk and wc-lgxhw-jzxoc yogurt have 15 grams of carbs in a serving. A serving is 1 cup of milk or 3/4 cup (6 oz) of ro-whwqy-yojxm yogurt. Starchy vegetables have 15 grams of carbs in a serving. A serving is ?? cup of mashed potatoes or sweet potato; 1 cup winter squash; ?? of a small baked potato; ?? cup of cooked beans; or ?? cup cooked corn or green peas. Learn how much carbs to eat each day and at each meal. A dietitian or certified hearing instrument dispenser can teach you how to keep track of the amount of carbs you eat. This is called carbohydrate counting. If you are not sure how to count carbohydrate grams, use the plate method to plan meals. It is a quick way to make sure that you have a balanced meal. It also can help you manage the amount of carbohydrate you eat at meals. Divide your plate by types of foods. Put non-starchy vegetables on half the plate, meat or other protein food on one-quarter of the plate, and a grain or starchy vegetable in the final quarter of theplate. To this you can add a small piece of fruit and 1 cup of milk or yogurt, depending on how many carbs you are supposed to eat at a meal. Try to eat about the same amount of carbs at each meal. Do not save up your daily allowance of carbs to eat at one meal. Proteins have very little or no carbs. Examples of proteins are beef, chicken, turkey, fish, eggs, tofu, cheese, cottage cheese, and peanut butter. Alejandra Baumann APRN [facility] [place] Endocrinology Diabetes Management Pager [phone] Weekends please page [phone] * Eric Packer PA - 06/20/2024 7:44 AM EST Cardiac Surgery Progress Note George Mehta is a 69 y.o. male with a history of CAD s/p multiple PCI who presented with an anterior STEMI and was given lytics. Cath showed MV CAD without culprit vessel. He is now 6 Days Post-OpCABGx3 and MARIALUISA clipping. PMH of chronic HFrEF s/p DISEASE AND INSECT CONTROL BOSS/ICD, IDDM2, HTN, HLD, remote melanoma, active smoker. Interval Events: Creatinine 1.39 from 1.29 Negative 200 mL TG S: Feels well. Pain controlled. +BM. Ambulating. Tolerating diet O: Temp: [36.3 ??C (97.3 ??F)-36.5 ??C (97.7 ??F)] Heart Rate: [83-93] Resp: [14-18] BP: (91-125)/(58-75) SpO2: [95 %-97 %] Heart Rate from SpO2: [88 bpm-93 bpm] 06/19 0701 - 06/20 0700 In: 1150 [P.O.:1150] Out: 1375 [Urine:1375] Admit weight: 102 kg Current weight: Weight: 99 kg (218 lb 3.2 oz) Physical Exam: General: NAD, alert and oriented. Neuro: Awake and alert. No gross neurological deficit. Lungs: Non-labored respirations on RA. Heart: RRR, V paced Abdomen: Soft, NTND Ext: wwp, significant tight edema bilateral lower ext to thighs, R>L, improving Incisions: sternotomy CDI, saphenectomy CDI Tubes/Lines/Drains: PIV Assessment/Plan: 69 y.o. male 6 Days Post-Op CABGx3 and MARIALUISA clip. 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 06/20/2024 Between the hours of 1800 - 0600 and on the weekends please page [phone]. * Alejandra Baumann APRN - 06/20/2024 7:21 AM EST Follow Up Diabetes Consult Patient Interview Blood glucose values and insulin use reviewed. 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 On much lower doses of insulin compared to home. Pt now has empagliflozin 25mg added back.. He only required 2 to 7 units of meal insulin and no correction doses. TDD insulin 59 units yesterday. Weight based glargine calculates to range 29 to 35 units. Suggest decrease glargine to 35 units for this morning in an effort to prevent hypoglycemia. Objective Temp: [36.3 ??C (97.3 ??F)-36.5 ??C (97.7 ??F)] Heart Rate: [83-93] Resp: [14-18] BP: (91-125)/(58-75) SpO2: [95 %-97 %] Heart Rate from SpO2: [88 bpm-93 bpm] Current Regimen from previous note Lantus:Decreased to 45 units Lispro 1:5 insulin to carbohydrate ratio - ADJUSTED Lispro for correction q 4 hours ADJUSTED to correction factor of 15 Diet CC level 2 Monitoring:Q4 Recent Glucose Levels Recent Labs 06/20/24 0710 06/20/24 0032 06/20/24 0002 06/19/24 2015 06/19/24 1801 06/19/24 1651 06/19/24 1237 06/19/24 1120 06/19/24 0721 06/19/24 0452 06/19/24 0413 06/19/24 0348 POCGLU 130 86 59* 131 129 155 136 185 125 125 67 51* ASSESSMENT George Mehta is a 69 y.o. male with a history of CAD s/p multiple PCI who presented with an anterior STEMI and was given lytics. Cath showed MV CAD without culprit vessel. He is now 1 Day Post-Op CABGx3 and MARIALUISA clipping. PMH of chronic HFrEF s/p DISEASE AND INSECT CONTROL BOSS/ICD, IDDM2, HTN, HLD, remote melanoma, active smoker. 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 Pt now has empagliflozin 25mg added back. He only required 2 to 7 units of meal insulin and no correction doses. TDD insulin 59 units yesterday. Weight based glargine calculates to range 29 to 35 units. Suggest decresae glargine to 35 units for this morning in an effort to prevent hypoglycemia. PLAN Lantus:DECREASED to 35 units Lispro 1:5 insulin to carbohydrate ratio Lispro for correction q 4 hours based on a correction factor of 15 Diet CC Monitoring:Q4 Discharge Considerations: A1C 7.1%, Home regimen Medications: Jardiance 25mg, Glipizide 10mg, Tresiba U 100 50 units nightly, Humalog 20 units TID ac, metformin 1000mg BID Hypoglycemia 2-3 x weekly, has CGM alarm to alert him, meal dosing is high compared to dosing during admission, consider lower fixed dose + correction scale, example 10 units + correction over 150 before meals based on ISF 20 Alejandra Baumann APRN [facility] [place] Endocrinology Diabetes Management Pager [phone] Weekends please page [phone] Insulin Discharge Instructions Preliminary Diabetes Discharge Instructions Continue your Jardiance 25mg daily. Make sure you are eating and drinking well on this medication. It should not be taken if you have decreased oral intake. Continue your home metformin dose 1000mg twice daily with your meals. You should have blood work every 6 months while taking this medication to monitor your kidney function. STOP your Glipizide. This medication should be discontinued when using short acting insulin due to increased risk of hypoglycemia. This medication is generally also discontinued at age 65, also due to increased risks associated with low blood sugars. This was likely the cause of your hypoglycemia prior to your admission. Blood Sugar Checks : Continue to use your CGM for glucose monitoring: Every day, please check your blood sugar at these 4 times 1) Before eating breakfast (aka your fasting blood sugar) 2) Before eating lunch 3) Before eating dinner 4) Before going to bed If you have symptoms of low blood sugar or high blood sugar, please check your blood sugar an additional time Daily Long-Acting Insulin Instructions Your Long-acting insulin is called Vannessa Take 35 units of long acting insulin in the morning. If you prefer to take this in the evening you can take 2-3 hours later each day until you are at your preferred administration time. We administered your long acting insulin last on 06/19/24 at 0830. Adjust your long-acting insulin dose as needed according to the following guidelines: If your fasting blood sugars are above 150mg/dl two days in a row, please increase your long-actinginsulin by 2 units. This increased dose becomes your new dose, continue to increase as needed every2-3 days (you can add one unit onto am dose and one unit onto pm dose) If your fasting blood sugars are below 90mg/dl two days in a row, please decrease your long-acting insulin by 2 units. This lower dose becomes your new dose, continue to decrease as needed. Daily Short-Acting Insulin Instructions: Your Short-acting insulin is called Humalog. You have needed between 7 to 15 units of this short acting insulin before your meals. I suggest you use a fixed dose at home - though adjusting this dose if your blood sugars are below 100 or greater than 140 at the start of your meal (see scale below) INSULIN COVERAGE FOR CARBOHYDRATE INTAKE (aka, carb count or meal-associated insulin coverage) : Before each meal, check your blood glucose (BG). We assume you will need a fixed dose of about 10 units of humalog, ADJUST YOUR MEAL INSULIN BASED ON YOUR BLOOD GLUCOSE BEFORE YOUR MEAL BG under 80 Subtract 2 units from your food dose, eat right away and administer 8 units humalog after you eat. BG 80 - 100 Subtract 1 unit from your food dose and give 9 units just before eating. BG 100 - 140 Give your meal dose 10 units 5 - 10 minutes before you eat, only if eating; BG 140 - 160 ADD 1 unit - administer 11 units before eating BG 161 - 180 ADD 2 units - administer 12 units before eating BG 181 - 200 ADD 3 units - administer 13 units before eating BG 201 - 220 ADD 4 units- administer 14 units before eating BG 221 - 240 ADD 5 units - administer 15 units before eating BG 241 - 260 ADD 6 units- administer 16 units before eating BG 261 - 280 ADD 7 units- administer 17 units before eating . Treatment of Low Blood Sugar (Hypoglycemia) 15:15 rule - if your blood sugars is under 80, eat 15g of sugar, and recheck your blood sugar in 15minutes. If you continue to be under 80 after 15 minutes, eat 15g of sugar more, and repeat. If BG is over 100 on recheck, no need to consume more sugar, and recheck BG in another 15 minutes. If your BG is lower than 80, you are likely to feel shaky, sweaty and lightheaded. This is a signalthat your body needs more sugar. Quickly eat or drink a 15g of something sweet, such as: 4 ounces fruit juice or regular (not diet) soda 6 lifesavers small box of raisins 4 glucose tablets (~15 gm of glucose) If your BG is very low <50, you can double the amount above or take 30 gm of glucose gel/tablets. Once you are feeling better, try to determine why your BG was so low. Common causes of hypoglycemiainclude skipping a meal, lots of exercise, too much insulin or any combination of these things. Understanding the cause my help you to avoid another low BG in the future. Test blood sugars prior to driving, make sure glucose levels are greater than 100mg/dl. If not havea snack and retest blood sugars in 15 minutes. Carry a quick acting glucose source on you at all times. Call your diabetes provider OR PCP for blood sugars less than 80 or greater than 300 twice in one day to have your insulin doses adjusted. What should you know about eating carbohydrates? Managing the amount of carbohydrate (carbs) you eat is an important part of healthy meals when you have diabetes. Carbohydrate is found in many foods. Learn which foods have carbs. And learn the amounts of carbs in different foods. Bread, cereal, pasta, and rice have about 15 grams of carbs in a serving. A serving is 1 slice of bread (1 ounce), ?? cup of cooked cereal, or 1/3 cup of cooked pasta or rice. Fruits have 15 grams of carbs in a serving. A serving is 1 small fresh fruit, such as an apple or orange; ?? of a banana; ?? cup of cooked or canned fruit; ?? cup of fruit juice; 1 cup of melon or raspberries; or 2 tablespoons of dried fruit. Milk and cb-kkmad-dztrq yogurt have 15 grams of carbs in a serving. A serving is 1 cup of milk or 3/4 cup (6 oz) of oz-vmitc-cfcsd yogurt. Starchy vegetables have 15 grams of carbs in a serving. A serving is ?? cup of mashed potatoes or sweet potato; 1 cup winter squash; ?? of a small baked potato; ?? cup of cooked beans; or ?? cup cooked corn or green peas. Learn how much carbs to eat each day and at each meal. A dietitian or certified hearing instrument dispenser can teach you how to keep track of the amount of carbs you eat. This is called carbohydrate counting. If you are not sure how to count carbohydrate grams, use the plate method to plan meals. It is a quick way to make sure that you have a balanced meal. It also can help you manage the amount of carbohydrate you eat at meals. Divide your plate by types of foods. Put non-starchy vegetables on half the plate, meat or other protein food on one-quarter of the plate, and a grain or starchy vegetable in the final quarter of theplate. To this you can add a small piece of fruit and 1 cup of milk or yogurt, depending on how many carbs you are supposed to eat at a meal. Try to eat about the same amount of carbs at each meal. Do not save up your daily allowance of carbs to eat at one meal. Proteins have very little or no carbs. Examples of proteins are beef, chicken, turkey, fish, eggs, tofu, cheese, cottage cheese, and peanut butter. * Jeffy Hood MD - 06/19/2024 9:09 AM EST Cardiac Surgery Progress Note George Mehta is a 69 y.o. male with a history of CAD s/p multiple PCI who presented with an anterior STEMI and was given lytics. Cath showed MV CAD without culprit vessel. He is now 5 Days Post-OpCABGx3 and MARIALUISA clipping. PMH of chronic HFrEF s/p DISEASE AND INSECT CONTROL BOSS/ICD, IDDM2, HTN, HLD, remote melanoma, active smoker. Interval Events: Transferred to floor Creatinine downtrending Negative 720 mL S: Feeling OK. Pain controlled. Had a BM. O: Temp: [36.5 ??C (97.7 ??F)-37 ??C (98.6 ??F)] Heart Rate: [81-98] Resp: [14-18] BP: (101-143)/(60-83) SpO2: [94 %-97 %] Heart Rate from SpO2: [77 bpm-97 bpm] 06/18 0701 - 06/19 0700 In: 720 [P.O.:720] Out: 1460 [Urine:1460] Admit weight: 102 kg Current weight: Weight: 100.2 kg (220 lb 12.8 oz) Physical Exam: General: NAD, alert and oriented. Neuro: Awake and alert. No gross neurological deficit. Lungs: Non-labored respirations on RA. Heart: RRR, V paced Abdomen: Soft, NTND Ext: wwp, significant tight edema bilateral lower ext to thighs, +2 Incisions: sternotomy dressing CDI, saphenectomy dressing CDi Tubes/Lines/Drains: PIV Assessment/Plan: 69 y.o. male 5 Days Post-Op CABGx3 and MARIALUISA clip. 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 Jeffy Hood MD 06/19/2024 Between the hours of 1800 - 0600 and on the weekends please page [phone]. * Alejandra Baumann, MARINE ARCHITECT - 06/19/2024 7:09 AM EST Follow Up Diabetes Consult Patient Interview Blood glucose values and insulin use reviewed. Jardiance added back yesterday, early childhood associate low BGto 51. Glargine reduced to 45 units this morning. Correction scale adjusted from ISF 10 to ISF 15. Pt potentially to discharge to home today. Objective Temp: [36.5 ??C (97.7 ??F)-37 ??C (98.6 ??F)] Heart Rate: [81-98] Resp: [14-20] BP: (101-143)/(60-76) SpO2: [95 %-97 %] Heart Rate from SpO2: [77 bpm-97 bpm] Current Regimen from previous note Lantus:50 units increased Lispro 1:3 insulin to carbohydrate ratio - adjusted Lispro for correction q 4 hours based on a correction factor of 20 Diet CC Monitoring: Q4 Recent Glucose Levels Recent Labs 06/19/24 0452 06/19/24 0413 06/19/24 0348 06/19/24 0023 06/18/24 2308 06/18/24 1932 06/18/24 1808 06/18/24 1617 06/18/24 1209 06/18/24 0749 06/18/24 0350 06/17/24 2310 POCGLU 125 67 51* 82 73 167 140 144 180 125 99 92 ASSESSMENT George Mehta is a 69 y.o. male with a history of CAD s/p multiple PCI who presented with an anterior STEMI and was given lytics. Cath showed MV CAD without culprit vessel. He is now 1 Day Post-Op CABGx3 and MARIALUISA clipping. PMH of chronic HFrEF s/p DISEASE AND INSECT CONTROL BOSS/ICD, IDDM2, HTN, HLD, remote melanoma, active smoker. Jardiance added back yesterday. 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 Glargine reduced to 45 units this morning. Correction scale adjusted from ISF 10 to ISF 15. Will adjust carb ratio from ICR 1:3 to ICR 1:5 anticipating lower BGs with SGLT-2 on board. PLAN - orders adjusted Lantus:Decreased to 45 units Lispro 1:5 insulin to carbohydrate ratio - ADJUSTED Lispro for correction q 4 hours ADJUSTED to correction factor of 15 Diet CC level 2 Monitoring:Q4 Discharge Considerations: A1C 7.1%, Home regimen Medications: Jardiance 25mg, Glipizide 10mg, Tresiba U 100 50 units nightly, Humalog 20 units TID ac, metformin 1000mg BID Hypoglycemia 2-3 x weekly, has CGM alarm to alert him, meal dosing is high compared to dosing during admission, consider lower fixed dose + correction scale, example 15 units + correction over 150 before meals based on ISF 20 Insulin Discharge Instructions Diabetes Discharge Instructions Continue your Jardiance 25mg daily. Make sure you are eating and drinking well on this medication. It should not be taken if you have decreased oral intake. Continue your home metformin dose 1000mg twice daily with your meals. You should have blood work every 6 months while taking this medication to monitor your kidney function. STOP your Glipizide. This medication should be discontinued when using short acting insulin due to increased risk of hypoglycemia. This medication is generally also discontinued at age 65, also due to increased risks associated with low blood sugars. This was likely the cause of your hypoglycemia prior to your admission. Blood Sugar Checks : Continue to use your CGM for glucose monitoring: Every day, please check your blood sugar at these 4 times 1) Before eating breakfast (aka your fasting blood sugar) 2) Before eating lunch 3) Before eating dinner 4) Before going to bed If you have symptoms of low blood sugar or high blood sugar, please check your blood sugar an additional time Daily Long-Acting Insulin Instructions Your Long-acting insulin is called Vannessa Take 45 units of long acting insulin in the morning. If you prefer to take this in the evening you can take 2-3 hours later each day until you are at your preferred administration time. We administered your long acting insulin last on 06/19/24 at 0830. Adjust your long-acting insulin dose as needed according to the following guidelines: If your fasting blood sugars are above 150mg/dl two days in a row, please increase your long-actinginsulin by 2 units. This increased dose becomes your new dose, continue to increase as needed every2-3 days (you can add one unit onto am dose and one unit onto pm dose) If your fasting blood sugars are below 90mg/dl two days in a row, please decrease your long-acting insulin by 2 units. This lower dose becomes your new dose, continue to decrease as needed. Daily Short-Acting Insulin Instructions: Your Short-acting insulin is called Humalog. You have needed between 12 to 15 units of this short acting insulin before your meals. I suggest you use a fixed dose at home - though adjusting this doseif your blood sugars are below 100 or greater than 140 at the start of your meal (see scale below) INSULIN COVERAGE FOR CARBOHYDRATE INTAKE (aka, carb count or meal-associated insulin coverage) : Before each meal, check your blood glucose (BG). We assume you will need a fixed dose of about 15 units of humalog, ADJUST YOUR MEAL INSULIN BASED ON YOUR BLOOD GLUCOSE BEFORE YOUR MEAL BG under 80 Subtract 2 units from your food dose, eat right away and administer 13 units humalog after you eat. BG 80 - 100 Subtract 1 unit from your food dose and give 14 units just before eating. BG 100 - 140 Give your meal dose 15 units 5 - 10 minutes before you eat, only if eating; BG 140 - 160 ADD 1 unit - administer 16 units before eating BG 161 - 180 ADD 2 units - administer 17 units before eating BG 181 - 200 ADD 3 units - administer 18 units before eating BG 201 - 220 ADD 4 units- administer 19 units before eating BG 221 - 240 ADD 5 units - administer 20 units before eating BG 241 - 260 ADD 6 units- administer 21 units before eating BG 261 - 280 ADD 7 units- administer 22 units before eating . Treatment of Low Blood Sugar (Hypoglycemia) 15:15 rule - if your blood sugars is under 80, eat 15g of sugar, and recheck your blood sugar in 15minutes. If you continue to be under 80 after 15 minutes, eat 15g of sugar more, and repeat. If BG is over 100 on recheck, no need to consume more sugar, and recheck BG in another 15 minutes. If your BG is lower than 80, you are likely to feel shaky, sweaty and lightheaded. This is a signalthat your body needs more sugar. Quickly eat or drink a 15g of something sweet, such as: 4 ounces fruit juice or regular (not diet) soda 6 lifesavers small box of raisins 4 glucose tablets (~15 gm of glucose) If your BG is very low <50, you can double the amount above or take 30 gm of glucose gel/tablets. Once you are feeling better, try to determine why your BG was so low. Common causes of hypoglycemiainclude skipping a meal, lots of exercise, too much insulin or any combination of these things. Understanding the cause my help you to avoid another low BG in the future. Test blood sugars prior to driving, make sure glucose levels are greater than 100mg/dl. If not havea snack and retest blood sugars in 15 minutes. Carry a quick acting glucose source on you at all times. Call your diabetes provider OR PCP for blood sugars less than 80 or greater than 300 twice in one day to have your insulin doses adjusted. What should you know about eating carbohydrates? Managing the amount of carbohydrate (carbs) you eat is an important part of healthy meals when you have diabetes. Carbohydrate is found in many foods. Learn which foods have carbs. And learn the amounts of carbs in different foods. Bread, cereal, pasta, and rice have about 15 grams of carbs in a serving. A serving is 1 slice of bread (1 ounce), ?? cup of cooked cereal, or 1/3 cup of cooked pasta or rice. Fruits have 15 grams of carbs in a serving. A serving is 1 small fresh fruit, such as an apple or orange; ?? of a banana; ?? cup of cooked or canned fruit; ?? cup of fruit juice; 1 cup of melon or raspberries; or 2 tablespoons of dried fruit. Milk and xz-lgkhq-tljbj yogurt have 15 grams of carbs in a serving. A serving is 1 cup of milk or 3/4 cup (6 oz) of pi-yqdba-oihzw yogurt. Starchy vegetables have 15 grams of carbs in a serving. A serving is ?? cup of mashed potatoes or sweet potato; 1 cup winter squash; ?? of a small baked potato; ?? cup of cooked beans; or ?? cup cooked corn or green peas. Learn how much carbs to eat each day and at each meal. A dietitian or certified hearing instrument dispenser can teach you how to keep track of the amount of carbs you eat. This is called carbohydrate counting. If you are not sure how to count carbohydrate grams, use the plate method to plan meals. It is a quick way to make sure that you have a balanced meal. It also can help you manage the amount of carbohydrate you eat at meals. Divide your plate by types of foods. Put non-starchy vegetables on half the plate, meat or other protein food on one-quarter of the plate, and a grain or starchy vegetable in the final quarter of theplate. To this you can add a small piece of fruit and 1 cup of milk or yogurt, depending on how many carbs you are supposed to eat at a meal. Try to eat about the same amount of carbs at each meal. Do not save up your daily allowance of carbs to eat at one meal. Proteins have very little or no carbs. Examples of proteins are beef, chicken, turkey, fish, eggs, tofu, cheese, cottage cheese, and peanut butter. Alejandra Baumann APRN [facility] Endocrinology Diabetes Management Pager [phone] Weekends please page [phone] * Hilda Resendez PTA - 06/18/2024 9:19 AM EST Physical Therapy Note 2 Patient profile: George Mehta is a 69 y.o. male with a history of CAD s/p multiple PCI who presented with an anterior STEMI and was given lytics. Cath showed MV CAD without culprit vessel. He is now 1 Day Post-Op CABGx3 and MARIALUISA clipping. PMH of chronic HFrEF s/p DISEASE AND INSECT CONTROL BOSS/ICD, IDDM2, HTN, HLD, remote melanoma, active smoker. Interval History: Per last cardiac surgery note on 06/18/2024 Cr improved 1.4 on lasix 40 iv bid -1.5L, made 2.5L urine Coreg, entresto restarted Floor status Social History: Pt lives with his in a 1 level apartment with no steps to enter. 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 He sleeps in a recliner at baseline. Precautions/Special Considerations: Sternal precautions, PIV, at risk to fall, PPM Mobility and Positioning Recommendations: Pt to utilize no AD, supervision for ambulation and transfers w/ staff scientist as able. Please encourage up to chair for meal times as able. Subjective: I feel pretty ok Objective: Patient seen for physical therapy and demonstrated the following: Pain: Pt had no overt c/o pain throughout session Vital Signs: At Rest With Activity SpO2 (RA) 99% 93% BP (MAP) 127/72 (85)mmHg 138/61 (83)mmHg HR 93bpm 93bpm Cognition/Vision: Pt was alert and cooperative w/ therapy Bed Mobility: Supine to Sit: N/A, Pt deferred, demonstrated bed mobility for pt and provided w/ handout on log roll technique, has recliner chair at home Sit to Supine: N/A Transfers: Sit to Stand: supervised, no LOB noted, no use of arms using no assistive device Stand to Sit: supervised, good eccentric control using no assistive device Gait: Distance: 150 ft Device used: no assistive device Level of assist: supervised, Line management Gait mechanics: Fair gait speed, step length and foot clearance, min trunk sway Stairs: N/A Balance: Sitting Static: Good Sitting Dynamic: Good Standing Static: Good Standing Dynamic / Gait: Fair Education: Pt educated on importance of continued mobilization OOB, transfer training, gait training, energy conservation, therex Pt left in bedside recliner chair, with all needs met, and with call jones in reach RN aware following visit. Assessment: George Mehta was seen today for physical therapy treatment session for continuation of POC. Pt was able to complete all tasks asked of him by therapy this session while maintaining hissternal precautions and balance. Pt reports he has a that will be able to assist him with the bed mobility once home, however he does have a recliner chair he can sleep in. Based on current presentation, anticipate he will be able to d/c home. Will monitor pt for any overt changes in status ormobility while he remains in-house. Inpatient Physical Therapy Plan: Monitor Pt has met all inpatient Physical Therapy goals sufficientfor home. Discharge Recommendations: Based on current findings- home Consult Recommendations: No other consults recommended at this time. Equipment needs: None Physical Therapy Goals: Goals to be achieved by 06/20/24. Pt will maintain sternal precautions without cues with all transfers Pt will perform supine to sit transfers with supervision to/from flat bed, log roll technique Pt will perform sit><stand transfers with supervision with least restrictive device Pt will perform bed to chair transfers with supervision with least restrictive device Pt will ambulate at least 160' with supervision with least restrictive device Time IN / OUT: [id number] Total Time: 11 minutes; TEF 1 Hilda Resendez PTA Pager: [phone] Physical Therapy Inpatient Rehabilitation Department * Keila Hanley, MARINE ARCHITECT - 06/18/2024 8:48 AM EST Cardiac Surgery Progress Note George Mehta is a 69 y.o. male with a history of CAD s/p multiple PCI who presented with an anterior STEMI and was given lytics. Cath showed MV CAD without culprit vessel. He is now 4 Days Post-OpCABGx3 and MARIALUISA clipping. PMH of chronic HFrEF s/p DISEASE AND INSECT CONTROL BOSS/ICD, IDDM2, HTN, HLD, remote melanoma, active smoker. 24h Events: Cr improved 1.4 on lasix 40 iv bid -1.5L, made 2.5L urine Coreg, entresto restarted Floor status S: Pain is better, Has ambulated. Breathing ok, Belen diet. + flatus. -BM. O: Temp: [36.5 ??C (97.7 ??F)-37 ??C (98.6 ??F)] Heart Rate: [86-100] Resp: [13-23] BP: (96-134)/(57-80) SpO2: [92 %-97 %] Heart Rate from SpO2: [88 bpm-99 bpm] 06/17 0701 - 06/18 0700 In: 1300 [P.O.:1300] Out: 2555 [Urine:2555] Admit weight: 102 kg Current weight: Weight: 102.3 kg (225 lb 8.5 oz) Physical Exam: General: Sitting in chair. Neuro: Awake and alert. No gross neurological deficit. CN intact. Lungs: Non-labored respirations on RA. CTA, no wheezes, crackles, rhonchi. Heart: RRR, A sensed V paced on tele. Abdomen: Soft, NTND Ext: wwp, significant tight edema bilateral lower ext to thighs, +2 Incisions: sternotomy dressing CDI, saphenectomy dressing CDi Tubes/Lines/Drains: RAYMOND Barr Assessment/Plan: 69 y.o. male 4 Days Post-Op CABGx3 and MARIALUISA clip. 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 Restarting jardiance #Active smoker Duoneb prn Dispo: CVCC, Full code, tx to floor Discussed with attending surgeon on rounds this morning. KEILA HANLEY, JOSÉ ANTONIO 06/18/2024 Between the hours of 1800 - 0600 and on the weekends please page [phone]. * Alejandra Baumann APRN - 06/17/2024 3:29 PM EST Follow Up Diabetes Consult Patient Interview Blood glucose values and insulin use reviewed. George is doing well, wants to go home. Glargine increased to 50 units, this is his home dose. ICR being adjusted following elevated BG at lunch. Reviewed with primary team and order adjusted. Objective Temp: [36.7 ??C (98.1 ??F)-36.9 ??C (98.4 ??F)] Heart Rate: [91-95] Resp: [14-25] BP: (117-150)/(59-89) SpO2: [90 %-96 %] Heart Rate from SpO2: [90 bpm-95 bpm] Current Regimen from previous note Lantus:45 units stat Please keep Insulin IV drip running for at least 2 hours after patient receives Lantus bolus. Drip should be running at less than 2 units per hour and glucose less than 200mg/dl prior to discontinuing the drip. If above criteria met, drip can be discontinued and lispro correction is added. If above criteria not met, drip continues to run and insulin requirements need to be reassessed. Lispro 1:6 insulin to carbohydrate ratio - please add to drip if patient is eating. Lispro for correction q 4 hours based on a correction factor of 20 once drip has been discontinued Diet CC Monitoring: Q1--> Q4 once drip is discontinued Recent Glucose Levels Recent Labs 06/17/24 1104 06/17/24 0749 06/17/24 0416 06/17/24 0013 06/16/24 1922 06/16/24 1814 06/16/24 1614 06/16/24 1149 06/16/24 0744 06/16/24 0401 06/16/24 0221 06/16/24 0009 POCGLU 245* 141 139 211* 229* 220* 240* 199 129 158 176 222* ASSESSMENT George Mehta is a 69 y.o. male with a history of CAD s/p multiple PCI who presented with an anterior STEMI and was given lytics. Cath showed MV CAD without culprit vessel. He is now 1 Day Post-Op CABGx3 and MARIALUISA clipping. PMH of chronic HFrEF s/p DISEASE AND INSECT CONTROL BOSS/ICD, IDDM2, HTN, HLD, remote melanoma, active smoker. Glargine increased to 50 units, this is his home dose. ICR being adjusted to 1:3 following elevatedBG at lunch. Reviewed with primary team and order adjusted. PLAN - orders adjusted Lantus:50 units increased Lispro 1:3 insulin to carbohydrate ratio - adjusted Lispro for correction q 4 hours based on a correction factor of 20 Diet CC Monitoring: Q4 Discharge Considerations: A1C 7.1%, Home regimen Medications: Jardiance 25mg, Glipizide 10mg, Tresiba U 100 50 units nightly, Humalog 20 units TID ac, metformin 1000mg BID Hypoglycemia 2-3 x weekly, has CGM alarm to alert him, meal dosing is high compared to dosing during admission, consider lower fixed dose + correction scale, example 15 units + correction over 150 before meals based on ISF 20 Alejandra Baumann APRN [facility] Endocrinology Diabetes Management Pager [phone] Weekends please page [phone] 35 minutes were spent over the course of the day with this patient encounter including time spent in chart review and relevant lab result review, assessment of and counseling with the patient on diabetes and treatment plan, reviewing all glucose and insulin data, and coordination with the consulting service. * Keila Hanley APRN - 06/17/2024 8:22 AM EST Cardiac Surgery Progress Note George Mehta is a 69 y.o. male with a history of CAD s/p multiple PCI who presented with an anterior STEMI and was given lytics. Cath showed MV CAD without culprit vessel. He is now 3 Days Post-OpCABGx3 and MARIALUISA clipping. PMH of chronic HFrEF s/p DISEASE AND INSECT CONTROL BOSS/ICD, IDDM2, HTN, HLD, remote melanoma, active smoker. 24h Events: Cr peak 2.1, now 1.5 Metop started, holding on lasix, making ~50ml/hr urine LA 1.3 from 1.8 EP interrogated AICD; currently DDD paced. Oxy better for pain. S: Pain is better, Has ambulated. Breathing ok, Belen diet. + flatus. -BM. O: Temp: [36.6 ??C (97.8 ??F)-36.9 ??C (98.4 ??F)] Heart Rate: [83-96] Resp: [14-25] BP: (124-150)/(59-89) SpO2: [90 %-96 %] Heart Rate from SpO2: [83 bpm-95 bpm] 06/16 0701 - 06/17 0700 In: 1140 [P.O.:870; I.V.:20] Out: 1428 [Urine:1365] Torito rodríguez 30/10 Admit weight: 102 kg Current weight: Weight: 103 kg (227 lb 1.2 oz) Physical Exam: General: Sitting in chair. Neuro: Awake and alert. No gross neurological deficit. CN intact. Lungs: Non-labored respirations on 2L. CTA, no wheezes, crackles, rhonchi. Heart: RRR, A sensed V paced on tele. Abdomen: Soft, NTND Ext: warm, no edema. IABP dressing CDI, soft. Right groin and thigh with ecchymosis Incisions: sternotomy dressing CDI, saphenectomy dressing CDi Tubes/Lines/Drains: Mediastinal Cortney rodríguez, RAYMOND Assessment/Plan: 69 y.o. male 3 Days Post-Op CABGx3 and MARIALUISA clip. #STEMI #MV CAD s/p CABG and MARIALUISA clip #Acute on Chronic HFrEF IABP removed POD0 Dobutamine weaned off POD#1 Low dose metop change to coreg 6.25'', home dose 12.5 bid Cr improved to 1.5 Start lasix 40iv bid Restart home entresto daily BMP's Keep barr. D/C marcos ASA / Plavix Statin EP interrogated ICD; DDD 80 Tx to floor #IDDM2 DM team following pre-op Lantus, SSI Carb controlled diet #Active smoker Duoneb prn Dispo: CVCC, Full code, tx to floor Discussed with attending surgeon on rounds this morning. KEILA HANLEY, JOSÉ ANTONIO 06/17/2024 Between the hours of 1800 - 0600 and on the weekends please page [phone]. * Raymond Carlton MD - 06/16/2024 1:11 PM EST CARDIAC CRITICAL CARE ATTENDING STAFF PROGRESS NOTE Patient seen and examined. George Mehta is a 69 y.o. male with: Active Hospital Problems Diagnosis STEMI (ST elevation myocardial infarction) Cardiac resynchronization therapy defibrillator (DISEASE AND INSECT CONTROL BOSS-D) - Medtronic Amplia Cardiomyopathy, ischemic Acute on chronic heart failure with reduced ejection fraction (HFrEF, <= 40%) Coronary artery disease involving [place] coronary artery of [place] heart without angina pectoris Type 2 diabetes mellitus Resolved Hospital Problems No resolved problems to display. 24 Hour Events: Relative oliguria and worsening renal function ICD re-programmed to preoperative settings ASSESSMENT, MANAGEMENT, and DECISION MAKIN69 year old male diabetic with ischemic cardiomyopathy and chronic combined systolic and diastolic heart failure POD#2 s/p 3-vessel CABG and MARIALUISA occlusion. Neuro: Pain adequately addressed with current multimodal regimen CV: Ischemic heart disease- s/p surgical revascularization. Statin, antiplatelet therapy ICM with chronic combined systolic and diastolic heart failure- titration of GDMT as hemodynamics allow Pacer/ICD- Currently DDD @ 100 bpm, defibrillator function on Resp: Oxygenation adequate on 2L/min NC O2 Endo: Insulin gtt; transition to SQ regimen when appropriate GI: General diet, PPI Renal: ELVA/CKD- Perhaps some ATN in the perioperative period. Holding diuretics. May benefit from some additional volume loading vs low dose inotropic support to optimize renal perfusion. Avoiding nephrotoxins Heme: DAPT, monitor CT output, recheck H/H tomorrow ID: No acute issues EXAM: Patient Vitals for the past 168 hrs: Weight 06/16/24 0500 101.4 kg (223 lb 8.7 oz) 06/15/24 0556 98.4 kg (216 lb 14.9 oz) 06/14/24 0600 94.2 kg (207 lb 10.8 oz) 06/13/24 0325 94 kg (207 lb 3.7 oz) 06/12/24 0300 93.8 kg (206 lb 11.2 oz) 06/11/24 0347 94.5 kg (208 lb 6.4 oz) 06/10/24 0415 93.5 kg (206 lb 3.2 oz) Temp: [36.4 ??C (97.5 ??F)-36.8 ??C (98.2 ??F)] Heart Rate: [83-104] Resp: [15-25] BP: (100-140)/(65-88) SpO2: [89 %-96 %] Heart Rate from SpO2: [83 bpm-103 bpm] Physical Exam Alert, pleasant, comfortable Non-labored respirations. Rales at bases Regular paced rhythm. 2+ pitting edema with pigmented changes of vascular insufficiency Lab Results Component Value Date Sodium 132 06/16/2024 Potassium 4.5 06/16/2024 Blood Urea Nitrogen 37 06/16/2024 Creatinine 2.10 06/16/2024 White Blood Cell 17.91 06/16/2024 Hemoglobin 10.5 06/16/2024 Hematocrit 33.1 06/16/2024 Platelet 101 06/16/2024 IS PATIENT CRITICALLY ILL ? Is there a high potential of sudden, clinically significant, or life threatening deterioration? Yes Is there a need for direct personal assessment and management to treat/prevent multiple vital organfailure/deterioration? Yes PATIENT IS CRITICALLY ILL WITH THESE DIAGNOSES BEING MANAGED: Congestive Heart Failure Combined Acute on chronic Renal Disease/Failure Acute I personally performed 35 minutes of aggregate critical care time exclusive of procedures and teaching. The billed time does not overlap with cardiology/cardiac surgical attending assessement and includes time spent during direct patient evaluation and reassessment, interpreting diagnostic tests, di recting life and/or organ supporting interventions and documentation on the unit. * Wen Gonzáles, DT - 06/16/2024 11:40 AM EST Nutrition Services Note - Low Nutrition Acuity George Mehta is a 69 y.o. male Reason for intervention: follow up Nutrition Plan: Continue current diet Encourage good po Insulin noted Previous lasix noted Monitor wt Support and encouragement provided Patient screened for f/u and senior mortgage underwriter met pt at bedside. Pt states his appetite is not great, his UBW is 220lbs and all nutritional questions and concerns were answered. Pt denies difficulty chewing/swallowing or nausea/vomiting and voiced he is able to finish 100% of his meals Pt has one 100% po intake recorded on 06/11 according to flowsheets. Please document % po intakes inflowsheets. According to dining services pt ordered ~1129 kcals/day and ~55g pro/day, both over thelast 4 days. No wt loss observed per graph, wt is currently trending up at this interval. Please update and trend wts to allow for ongoing assessment of wt changes. Clinical Nutrition will continue to monitor and follow Active Orders Diet Carb Control diet 60/60/75 CHO counting level 2 Frequency: Effective Now Number of Occurrences: Until Specified Admit Weight: 102 kg Estimated body mass index is 36.08 kg/m?? as calculated from the following: Height as of this encounter: 167.6 cm (5' 6). Weight as of this encounter: 101.4 kg (223 lb 8.7 oz). Wt Readings from Last 5 Encounters: 06/16/24 101.4 kg (223 lb 8.7 oz) Weight loss: none Appetite: one 100% on 06/11 Food allergies:no known food allergies Chewing/Swallowing difficulty: none Nausea/Vomiting: no nausea and no vomiting Last Bowel Movement: 06/12/24 Patient education / questions: all nutrition related questions answered at this time Nutrition services to follow weekly through hospital course unless consulted in the interim. RICHA [facility] Boss * Octaviano Horvath PA - 06/16/2024 8:07 AM EST Cardiac Surgery Progress Note George Mehta is a 69 y.o. male with a history of CAD s/p multiple PCI who presented with an anterior STEMI and was given lytics. Cath showed MV CAD without culprit vessel. He is now 2 Days Post-OpCABGx3 and MARIALUISA clipping. PMH of chronic HFrEF s/p DISEASE AND INSECT CONTROL BOSS/ICD, IDDM2, HTN, HLD, remote melanoma, active smoker. 24h Events: Dobutamine weaned off yesterday. Started low dose metop. EP interrogated AICD; currently DDD paced. Oxy better for pain. S: Pain is better controlled today. Has ambulated unit 4 times yesterday. Breathing ok, but tight. Belen some diet. + flatus. -BM. O: Temp: [36.4 ??C (97.5 ??F)-37.2 ??C (99 ??F)] Heart Rate: [86-104] Resp: [14-25] BP: (100-140)/(65-88) SpO2: [89 %-96 %] Heart Rate from SpO2: [88 bpm-103 bpm] Last Hemodynamics: CI 2.4 PAP 30s/20s CVP 13-15 Drips: Insulin 06/15 701 - 06/16 07 In: 2742.9 [P.O.:2320; I.V.:412.9] Out: 1015 [Urine:625] Med marcos and bilateral pleural CTs - 390/140/30, SS, no air leak Admit weight: 102 kg Current weight: Weight: 101.4 kg (223 lb 8.7 oz) Physical Exam: General: Sitting in chair. More comfortable today. Neuro: Awake and alert. No gross neurological deficit. CN intact. Lungs: Non-labored respirations on 2L. CTA, no wheezes, crackles, rhonchi. Heart: RRR, A sensed V paced on tele. Abdomen: Soft, NTND Ext: warm, no edema. IABP dressing CDI, soft. Right groin and thigh with ecchymosis Incisions: sternotomy dressing CDI, saphenectomy dressing CDi Tubes/Lines/Drains: RIJ, A-line, Mediastinal marcos and bilateral pleural CTs, Barr, PIV Assessment/Plan: 69 y.o. male 2 Days Post-Op CABGx3 and MARIALUISA clip. #STEMI #MV CAD s/p CABG and MARIALUISA clip #Acute on Chronic HFrEF IABP removed POD0 Dobutamine weaned off POD#1 Low dose metop 12.5'' Hold on lasix for now, Cr slightly up to 2.1 from 1.54 yesterday will trend daily BMP's Keep barr. Hemogram today. D/C rigid CT's keep marcos in place. ASA / Plavix Statin EP interrogated ICD; DDD 80 Keep in unit today. #IDDM2 DM team following pre-op Continue insulin drip Carb controlled diet #Active smoker Duoneb prn Dispo: CVCC, Full code Discussed with attending surgeon on rounds this morning. HENOK BALTAZAR 06/16/2024 Between the hours of 1800 - 0600 and on the weekends please page [phone]. * Jono Fernandez PT - 06/15/2024 4:09 PM EST Physical Therapy Evaluation Patient profile: George Mehta is a 69 y.o. male with a history of CAD s/p multiple PCI who presented with an anterior STEMI and was given lytics. Cath showed MV CAD without culprit vessel. He is now 1 Day Post-Op CABGx3 and MARIALUISA clipping. PMH of chronic HFrEF s/p DISEASE AND INSECT CONTROL BOSS/ICD, IDDM2, HTN, HLD, remote melanoma, active smoker. 24h Events: From OR on Dobutamine IABP removed Bedrest ended ~2100, sedation weaned Extubated ~0200 Dobutamine weaned to 1 this morning, CI 2.6, shut off and repeat CI 2.4 Social History: Pt lives with his in a 1 level apartment with no steps to enter. 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 He sleeps in a recliner at baseline. Precautions/Special Considerations: STERNAL PRECAUTIONS (No pushing, pulling or lifting >8-10lbs); at risk to fall; perm pacemaker; SWAN; chest tube; alia Mobility and Positioning Recommendations: Ambulate 3-4x/daily with nursing with 1 assist and rolling walker; 2L O2; assist for SWAN/IV poll OOB in chair for all meals Objective: Pt seen in the [facility]CC for initial evaluation, post operative protocol exs and precaution teaching w/ transfers and gait. Pt in chair at start of session; in chair at end of session with callbell in reach. Vital Signs: BP: 124/64 seated; 122/57 with amb; alia SpO2: 92 % on 2L HR: 103 bpm at rest; 127 with amb; paced (perm pacer) Incentive Spirometer: 500 mL with cues; limited by pain from CT Pain: 6/10 reported by patient at rest; 5/10 with mobility. Medicated prior to session. Pain improved with mob. Mental Status: A & O x 4 Skin: Sternal incision CDI. Musculoskeletal: ROM: WFL Strength: B LE 4/5 Bed Mobility: Supine ->Sit: not assessed; in chair at start of session Sit-> Supine: not assessed Transfers: Sit to stand: CG assist x 1; cues for hand placement Stand to Sit: Cg assist x 1; cues Gait: Ambulated 160 ft with rolling O2 cart; cg assist x 1; cues. Decreased step length and step height. Balance: fair with walker Stairs: not assessed Education/Exercise Instruction: Reviewed ankle pumps, LAQ, shoulder ff to prevent shoulder contractures, IS with deep breathing and cough technique. Pt was instructed in sternal precautions and demonstrated understanding. Assessment: Pt is s/p above CT surgery with sternotomy presenting with expected post operative pain, impaired skin integrity, impaired breathing mechanics, impaired cough, impaired activity toleranceresulting in decreased functional balance, impaired transfers and gait. Pt requires cues for sternal precautions, pacing and breathing techniques with all mobility at this time. Pt ambulated around the unit today with vitals stable. Remains on 2L O2. Pain from Chest tube limiting breathing mechanics. Anticipate pt will make gains with mobility and be safe for home d/c with assist once medically ready. Plan: 1-2 more visits for continued functional strength training, transfer training, gait training,stair training and pt education. Discharge Recommendations: Home with Equipment needs for home at d/c: to be determined Goals to be achieved by 06/20/24. Pt will maintain sternal precautions without cues with all transfers Pt will perform supine to sit transfers with supervision to/from flat bed, log roll technique Pt will perform sit><stand transfers with supervision with least restrictive device Pt will perform bed to chair transfers with supervision with least restrictive device Pt will ambulate at least 160' with supervision with least restrictive device 2016 PT Evaluation Code Rationale: Diagnosis & Pertinent Co-Morbidities, personal factors, and present illness affecting Plan of Care: (see above); Additional personal factors or co- morbidities that impact plan: Total # of Factors: 0 1-2 3+ x Examination of body system impairments, functional limitations and behaviors, and/or participation restrictions. Addressing 1-2 elements Addressing 3 + elements Addressing 4 + elements x Clinical presentation: See assessment above. Stable/Uncomplicated Evolving/Fluctuating Symptoms Unstable/Unpredictable x Clinical decision making of moderate complexity based on pt's functional performance as outlined inthis evaluation. JONO FERNANDEZ, PT Pager: [phone] Physical Therapy Inpatient Rehabilitation Department Time IN / OUT: 1704-5949 Total Time: 33 (eval) minutes * Alejandra Baumann APRN - 06/15/2024 11:39 AM EST Follow Up Diabetes Consult Patient Interview Blood glucose values and insulin use reviewed. Pt remains on an insulin drip today following [id number] MARIALUISA clipping. George continues to complain of pain. Drip running at 2.5 units/hr at this time suggesting Basal dosing 60 units, prior to CABG he was receiving 40 units glargine this admission, home dosing 50 units daily, CC diet in place. He has received 47 units of insulin on the drip over the last 24 hours, team is ready to transition him from the drip. Objective Temp: [34.9 ??C (94.8 ??F)-37.6 ??C (99.7 ??F)] Heart Rate: [80-107] Resp: [11-24] BP: (115)/(65) SpO2: [92 %-100 %] Heart Rate from SpO2: [81 bpm-131 bpm] Current Regimen from previous note Lantus:40 units daily Lispro 1:6 insulin to carbohydrate ratio Lispro for correction q 4 hours based on a correction factor of 20 Diet CC Monitoring: Q4 Recent Glucose Levels Recent Labs 06/15/24 1129 06/15/24 1029 06/15/24 0945 06/15/24 0837 06/15/24 0737 06/15/24 0701 06/15/24 0602 06/15/24 0506 06/15/24 0405 06/15/24 0307 06/15/24 0105 06/15/24 0016 POCGLU 220* 189 178 204* 199 203* 179 160 160 151 116 135 ASSESSMENT George Mehta is a 69 y.o. male with a history of CAD s/p multiple PCI who presented with an anterior STEMI and was given lytics. Cath showed MV CAD without culprit vessel. He is now 1 Day Post-Op CABGx3 and MARIALUISA clipping. PMH of chronic HFrEF s/p DISEASE AND INSECT CONTROL BOSS/ICD, IDDM2, HTN, HLD, remote melanoma, active smoker. Drip running at 2.5 units/hr at this time suggesting Basal dosing 60 units, prior to CABG he was receiving 40 units glargine during admission, home dosing 50 units daily, CC diet in place. He has received 47 units of insulin over the last 24 hours while on the drip. If primary team would like to transition from drip at this time suggest 45 units with drip running for an additional 2 hours prior to drip being discontinued. Blood sugars should be less than 200 and drip running at less than 2 units an hour prior to drip d/c. Meal coverage should be added to drip if patient is eating, recommend previous 1:6 insulin to carb ratio, with q 4 hour moderate correction once drip has been discontinued. Reviewed with primary team who will place orders. PLAN Lantus:45 units stat Please keep Insulin IV drip running for at least 2 hours after patient receives Lantus bolus. Drip should be running at less than 2 units per hour and glucose less than 200mg/dl prior to discontinuing the drip. If above criteria met, drip can be discontinued and lispro correction is added. If above criteria not met, drip continues to run and insulin requirements need to be reassessed. Lispro 1:6 insulin to carbohydrate ratio - please add to drip if patient is eating. Lispro for correction q 4 hours based on a correction factor of 20 once drip has been discontinued Diet CC Monitoring: Q1--> Q4 once drip is discontinued Discharge Considerations: Recent Labs 06/06/24 0333 HA1C 7.1* Home regimen Medications: Jardiance 25mg, Glipizide 10mg, Tresiba U 100 50 units nightly, Humalog 20 units TID ac, metformin 1000mg BID Hypoglycemia 2-3 x weekly, has CGM alarm to alert him, meal dosing is high compared to dosing during admission, consider lower fixed dose + correction scale, example 15 units + correction over 150 before meals based on ISF 20 Alejandra Baumann APRN [facility] Endocrinology Diabetes Management Pager [phone] Weekends please page [phone] 50 minutes were spent over the course of the day with this patient encounter including time spent in chart review and relevant lab result review, assessment of and counseling with the patient on diabetes and treatment plan, reviewing all glucose and insulin data, and coordination with the consulting service. * Raymond Carlton MD - 06/15/2024 11:21 AM EST CARDIAC CRITICAL CARE ATTENDING STAFF PROGRESS NOTE Patient seen and examined. George Mehta is a 69 y.o. male with: Active Hospital Problems Diagnosis STEMI (ST elevation myocardial infarction) Cardiac resynchronization therapy defibrillator (DISEASE AND INSECT CONTROL BOSS-D) - [employer] Amplia Cardiomyopathy, ischemic Acute on chronic heart failure with reduced ejection fraction (HFrEF, <= 40%) Coronary artery disease involving [place] coronary artery of [place] heart without angina pectoris Type 2 diabetes mellitus Resolved Hospital Problems No resolved problems to display. 24 Hour Events: IABP weaned and removed Extubated Dobutamine weaned off and PAC removed ASSESSMENT, MANAGEMENT, and DECISION MAKIN69 year old male diabetic with ischemic cardiomyopathy and chronic combined systolic and diastolic heart failure POD#1 s/p 3-vessel CABG and MARIALUISA occlusion. Neuro: Multimodal analgesia CV: Ischemic heart disease- s/p surgical revascularization. Statin, antiplatelet therapy ICM with chronic combined systolic and diastolic heart failure- titration of GDMT as hemodynamics allow Pacer/ICD- Currently DDD @ 100 bpm, defibrillator function on Resp: Oxygenation adequate on 2L/min NC O2 Endo: Insulin gtt; transition to SQ regimen when appropriate GI: General diet, PPI Renal: Creatinine slightly up from baseline. K, Mg WNL. Metabolic acidosis noted. Heme: DAPT, monitor CT output, recheck H/H tomorrow ID: Periop abx x 24 hours EXAM: Patient Vitals for the past 168 hrs: Weight 06/15/24 0556 98.4 kg (216 lb 14.9 oz) 06/14/24 0600 94.2 kg (207 lb 10.8 oz) 06/13/24 0325 94 kg (207 lb 3.7 oz) 06/12/24 0300 93.8 kg (206 lb 11.2 oz) 06/11/24 0347 94.5 kg (208 lb 6.4 oz) 06/10/24 0415 93.5 kg (206 lb 3.2 oz) 06/09/24 0438 94 kg (207 lb 3.2 oz) Temp: [34.9 ??C (94.8 ??F)-37.6 ??C (99.7 ??F)] Heart Rate: [80-107] Resp: [-] BP: (115)/(65) SpO2: [92 %-100 %] Heart Rate from SpO2: [81 bpm-131 bpm] Physical Exam Alert, pleasant, comfortable Non-labored respirations. Rales at bases Regular paced rhythm. 2+ pitting edema with pigmented changes of vascular insufficiency Cardiac Critical Care Medicine Staff Progress Note 69 y.o. male with h/o DM, CAD with prior PCI, DISEASE AND INSECT CONTROL BOSS-D who presented with crushing chest pain, found to have multivessel disease. Balloon pump placed prior to the OR for stability. Patient now s/p CABG x3, MARIALUISA excision Patient arrived to the ICU intubated, paced at 80 bpm. PE Temp: [34.9 ??C (94.8 ??F)-37 ??C (98.6 ??F)] Heart Rate: [61-97] Resp: [12-24] BP: -- SpO2: [90 %-100 %] Heart Rate from SpO2: [59 bpm-131 bpm] Vent settings: 510 x 18 5 40% CI:2.2 PAP: 32/15 Gen: elderly male, intubated CVS: Reg rate, paced rhythm Lungs: crackles at bases Abd: soft, NT, ND Ext: WWP Skin: no rashes, incision c/d/i, CT with minimal serosanguinous output Neuro: sedated, pupils equal and responsive to light Labs Last 3 wbc, hgb, hct plt Recent Labs 06/14/24 1230 06/14/24 1123 06/14/24 0012 06/13/24 0226 06/12/24 0303 WBC -- -- 10.51* 9.98* 9.69* HGB 10.9* 9.8* 14.9 15.3 15.2 HCT 33.5* 30.5* 45.9 47.1 46.6 PLATELET 73* 86* 162 194 194 Last 3 Lytes Recent Labs 06/14/24 0012 06/13/24 0748 06/13/24 0226 06/12/24 1419 06/12/24 0303 NA 135 -- 136 -- 138 K 4.1 4.5 3.9 < > 3.8 CL 100 -- 99 -- 98 CO2 25 -- 27 -- 29 BUN 25* -- 21* -- 23* CREATININE 1.14 -- 1.07 -- 1.15 < > = values in this interval not displayed. Last 3 LFTs Recent Labs 06/03/24 0213 AST 20 ALT 12 ALKPHOS 76 BILITOT 0.4 BILIDIR <0.2 Last Ca, Mg, Phos Recent Labs 11/11/24 0012 CALCIUM 9.5 MAGNESIUM 0.74 Last 3 Coags Recent Labs 06/14/24 1230 PT 16.8* INR 1.5 PTT 31 IS PATIENT CRITICALLY ILL ? Is there a high potential of sudden, clinically significant, or life threatening deterioration? Yes Is there a need for direct personal assessment and management to treat/prevent multiple vital organfailure/deterioration? Yes PATIENT IS CRITICALLY ILL WITH THESE DIAGNOSES BEING MANAGED: Congestive Heart Failure Combined Acute on chronic I personally performed 35 minutes of aggregate critical care time exclusive of procedures and teaching. The billed time does not overlap with cardiology/cardiac surgical attending assessement and includes time spent during direct patient evaluation and reassessment, interpreting diagnostic tests, di recting life and/or organ supporting interventions and documentation on the unit. * Rashi Bass PA - 06/15/2024 8:48 AM EST Cardiac Surgery Progress Note George Mehta is a 69 y.o. male with a history of CAD s/p multiple PCI who presented with an anterior STEMI and was given lytics. Cath showed MV CAD without culprit vessel. He is now 1 Day Post-Op CABGx3 and MARIALUISA clipping. PMH of chronic HFrEF s/p DISEASE AND INSECT CONTROL BOSS/ICD, IDDM2, HTN, HLD, remote melanoma, active smoker. 24h Events: From OR on Dobutamine IABP removed Bedrest ended ~2100, sedation weaned Extubated ~0200 Dobutamine weaned to 1 this morning, CI 2.6, shut off and repeat CI 2.4 S: Having lots of pain. Otherwise no complaints. No vision changes, numbness/tingling or weakness. O: Temp: [34.9 ??C (94.8 ??F)-37.6 ??C (99.7 ??F)] Heart Rate: [80-107] Resp: [11-24] BP: (115)/(65) SpO2: [92 %-100 %] Heart Rate from SpO2: [81 bpm-131 bpm] Hemodynamics: CI 2.4 PAP 30s/20s CVP 13-15 Drips: Insulin 06/14 0701 - 06/15 0700 In: 3730.5 [I.V.:3396.5] Out: 2869 [Urine:2110; Drains:20] Med marcos and bilateral pleural CTs - 405 / 260 / 100, SS, no air leak Admit weight: 102 kg Current weight: Weight: 98.4 kg (216 lb 14.9 oz) Physical Exam: General: Sitting in chair. In pain. Neuro: Awake and alert. No gross neurological deficit. Lungs: Non-labored respirations on 2L. CTA, no wheezes, crackles, rhonchi. Heart: RRR, A sensed V paced on tele. Abdomen: Soft, NTND Ext: warm, no edema. IABP dressing CDI, soft, no hematoma Incisions: sternotomy dressing CDI, saphenectomy dressing CDi Tubes/Lines/Drains: [place], RIJ, A-line, Mediastinal marcos and bilateral pleural CTs, Barr, PIV Assessment/Plan: 69 y.o. male 1 Day Post-Op CABGx3 and MARIALUISA clip. #STEMI #MV CAD s/p CABG and MARIALUISA clip #Acute on Chronic HFrEF IABP removed POD0 Extubated overnight Dobutamine weaned off this morning Will add low dose BB if CO remains stable Hold on lasix for now, Cr slightly up 1.27 from 1.14 Daily BMPs Keep CTs today ASA / Plavix Statin Will ask EP to turn ICD therapies back on #IDDM2 DM team following pre-op Continue insulin drip Carb controlled diet #Active smoker Duoneb prn Dispo: CVCC, Full code Discussed with attending surgeon on rounds this morning. HENOK MOHAN 06/15/2024 Between the hours of 1800 - 0600 and on the weekends please page [phone]. * Yoli Donaldson AIRCRAFT REFUELER - 06/15/2024 5:35 AM EST AMV Protocol: No ARDS Protocol: No CTICU Protocol: Yes SBT Protocol: Yes SBT: Passed Vent Settings: Settings: Tidal Volume Set: 510 Resp. Rate Set: 18 PS Above PEEP (cm H2O): 10 Set PEEP (cm H2O): 5 Set FiO2: 40 % VT/K Inspiratory Time: 0.91 Sec(s) Measurements: Tidal Volume Measured Exp.: 488 Resp: 18 Peak Inspiratory Pressure: 20 Mean Airway Pressure (cm H2O): 9 Minute Ventilation Total Exhaled (L/min): 8.8 Plateau Pressure (cm H2O): 15 SpO2: 100 % ETCO2 (mmHg): 28 mmHg Airway: 8.0 @ 24 cm at the Gum. Skin Integrity: WDL Breath Sounds: Clear Secretions: small, white, thick. Assessment / Events / Plan of the Day: Received pt orally intubated and mechanically ventilated on settings above. Pt passed PSBT on 5/5 and 40%. With a positive cuff leak, extubated to 5L NC. Post extubation evaluation: able to phonate, strong productive cough, and clear/diminished breath sounds. Pt weaned to 2L NC. Yoli Donaldson RCP * Loraine Lwoe MD - 06/14/2024 6:12 PM EST Cardiac Critical Care Medicine Staff Progress Note 69 y.o. male with h/o DM, CAD with prior PCI, DISEASE AND INSECT CONTROL BOSS-D who presented with crushing chest pain, found to have multivessel disease. Balloon pump placed prior to the OR for stability. Patient now s/p CABG x3, MARIALUISA excision Patient arrived to the ICU intubated, paced at 80 bpm. PE Temp: [34.9 ??C (94.8 ??F)-37 ??C (98.6 ??F)] Heart Rate: [61-97] Resp: [12-24] BP: -- SpO2: [90 %-100 %] Heart Rate from SpO2: [59 bpm-131 bpm] Vent settings: 510 x 18 5 40% CI:2.2 PAP: 32/15 Gen: elderly male, intubated CVS: Reg rate, paced rhythm Lungs: crackles at bases Abd: soft, NT, ND Ext: WWP Skin: no rashes, incision c/d/i, CT with minimal serosanguinous output Neuro: sedated, pupils equal and responsive to light Labs Last 3 wbc, hgb, hct plt Recent Labs 06/14/24 1230 06/14/24 1123 06/14/24 0012 06/13/24 0226 06/12/24 0303 WBC -- -- 10.51* 9.98* 9.69* HGB 10.9* 9.8* 14.9 15.3 15.2 HCT 33.5* 30.5* 45.9 47.1 46.6 PLATELET 73* 86* 162 194 194 Last 3 Lytes Recent Labs 06/14/24 0012 06/13/24 0748 06/13/24 0226 06/12/24 1419 06/12/24 0303 NA 135 -- 136 -- 138 K 4.1 4.5 3.9 < > 3.8 CL 100 -- 99 -- 98 CO2 25 -- 27 -- 29 BUN 25* -- 21* -- 23* CREATININE 1.14 -- 1.07 -- 1.15 < > = values in this interval not displayed. Last 3 LFTs Recent Labs 06/03/24 0213 AST 20 ALT 12 ALKPHOS 76 BILITOT 0.4 BILIDIR <0.2 Last Ca, Mg, Phos Recent Labs 06/14/24 0012 CALCIUM 9.5 MAGNESIUM 0.74 Last 3 Coags Recent Labs 06/14/24 1230 PT 16.8* INR 1.5 PTT 31 T/L/D Barr ETT CVL Alia CT Pacing wires ASSESSMENT, MANAGEMENT, and DECISION MAKIN y.o. male with h/o DM, CAD with prior PCI, DISEASE AND INSECT CONTROL BOSS-D who presented with crushing chest pain, found to have multivessel disease. Balloon pump placed prior to the OR for stability. Patient now s/p CABG x3, MARIALUISA excision Neuro: - continue propofol for sedation - Tylenol/ fentanyl for pain CV: HFrEF - balloon pump remained in place postop due to falling mixed venous O2 saturation in the OR. Patient placed back on 1:1 initially. Patient with ongoing improvement postop in heart function, removed without incident. - wean dobutamine to CI> 2 - continue ASA/ statin - monitor CT output - wean pacer as tolerated to maintain CI >2 - wean pressors as tolerated MAP 65-75 - will discuss reactivating defibrillator function with EP Pulm: - wean ventilator as tolerated - recruitment as needed - consider duoneb treatments Endo: - insulin for BG >180 Renal: - monitor UOP/ Cr Ppx: - scd's - HOB >30 - mouth care - PPI Code status: FULL CODE IS PATIENT CRITICALLY ILL ? Is there a high potential of sudden, clinically significant, or life threatening deterioration? Yes Is there a need for direct personal assessment and management to treat/prevent multiple vital organfailure/deterioration? Yes If this patient is not critically ill, the reason for continued hospitalization is [] PATIENT IS CRITICALLY ILL WITH THESE DIAGNOSES BEING MANAGED BY [facility] TEAM: Congestive Heart Failure Systolic Acute on chronic Other Paced rhythm I personally performed 35 minutes of aggregate critical care time exclusive of procedures and teaching. This includes time during direct patient evaluation and reassessment, interpreting labs and studies, directing life and/or organ supporting organ interventions, and documentation on the unit. * Shazia Castaneda RT - 06/14/2024 5:52 PM EST Illness Severity Stable Respiratory Modalities: SIMV (VC) + PS10, 510/+5, x(S) 18, 40 % (8ml/kg) Airway: 8.0 @ 24 Gum Patient Summary Admitted: 06/02/2024 Age: 69 y.o. Code Status: FULL. HPI: S/P CABG 06/14 PMHx: CAD s/p PCI, ischemic cardiomyopathy s/p ICD, DM2, STEMI, current smoker Events w/ date: 06/13 s/p IABP 06/14 s/p CABG, removed IABP. Received patient from OR, placed on SIMV, adjusted per ABGs/protocol/MD. Action List Plan to work towards waking/PSBT later tonight * Paula Treviño PA - 06/14/2024 4:33 PM EST Cardiac Surgery Procedure Note Procedure: IABP Removal Date of Procedure: 06/14/24 Time of Procedure: 16:04 Indication for Procedure: IABP no longer needed Attending Surgeon: Bobby Loja MD Performing Provider: Paula Treviño PA-C Assisting Provider: Federico Diaz PA-C Procedure Description: Patient remained sedated from the OR. Positioned supine with hemodynamic monitoring including telemetry, MAP/BP, PAP, CVP, and CI. Continuous pulse oxymetry monitoring was placed on right great toe. IABP was located in right femoral artery. Femoral pulse compression confirmedvia pulse oxymetry. IABP was stopped and removed swiftly. A brief second of back bleeding was allowed before compression of the vessel. Femoral was held non-occlusively for 60min. Hemostasis was achieved. DP/PT pulses remained intact. Hemodynamics remained stable. Complications: None Disposition: Stable Signed: Paula Treviño PA-C Between the hours of 1800 - 0600 and on the weekends please page [phone]. * Chloé Cortez - 06/14/2024 9:36 AM EST Nutrition Services Note - Low Nutrition Acuity George Mehta is a 69 y.o. male Reason for intervention: follow up Nutrition Plan: Patient marked for follow up, currently NPO. Pt will be seen when diet advances. Active Orders Diet NPO diet (Give Meds) Frequency: Effective Midnight Number of Occurrences: Until Specified Order Comments: Prior to surgery except for medications as identified with small sip of water Admit Weight: 102 kg Estimated body mass index is 33.52 kg/m?? as calculated from the following: Height as of this encounter: 167.6 cm (5' 6). Weight as of this encounter: 94.2 kg (207 lb 10.8 oz). Wt Readings from Last 5 Encounters: 06/14/24 94.2 kg (207 lb 10.8 oz) Weight loss: not clinically significant, 23.4L fluid loss Nutrition services to follow weekly through hospital course unless consulted in the interim. Chloé Cortez Survival Equipment Repairer * Jim Benites MD - 06/13/2024 1:15 PM EST CARDIOLOGY ATTENDING NOTE Patient: George Mehta Date of Service: 06/13/2024 Date of Admission: 06/02/2024 Length of Stay Hospital Day 11 days Please see the separate housestaff note for details. I have interviewed and examined the patient independently and I concur with the assessment and plan as documented, with exceptions/additions/emphases as noted below. The case was discussed on cardiology rounds and we reviewed the plan of care with the team and patient. 24 hour events Medications Asa 81 mg Atorvastatin 80 mg Coreg 6.25 mg bid Furosemide 04 mg iv Glargine 40, iss Hep gtt PE BP 138/86 Pulse 59 Temp 36.9 ??C (98.4 ??F) (Oral) Resp 16 Ht 167.6 cm (5' 6) Wt 94 kg (207 lb 3.7 oz) SpO2 96% BMI 33.45 kg/m?? Pleasant, lying in bed, right le straight Rrr, no m Ctab anterior Nt x 4 q 2+ dp b/l, wwp Labs 10 > 15/ < 194 Cr 1.1 K 4.5 Studies 06/07 cardiac mri - Findings consistent with an ischemic dilated cardiomyopathy. Findings are also suggestive of acute/subacute myocardial infarction in the diagonal or obtuse marginal territory. Specifically, there is microvascular dysfunction, myocardial edema, resting hypoperfusion, and delayed enhancement of the basal to mid anterolateral/lateral segments. There is evidence of remote, non-transmural infarction in the wrap-around LAD territory. Overall, findings suggest that the myocardium is viable; there is no transmural delayed enhancement. - Mildly dilated left ventricle size with [id number] decreased LV systolic function. LV ejection fraction is 26%. Global hypokinesis with akinesis of the basal to mid anterolateral segments. No LV thrombus. - Normal right ventricle size and shape with normal RV systolic function. RV ejection fraction is 53%. - No significant valvular abnormalities. 06/03 -Left ventricular systolic function is severely reduced. [...] a fellow performed study of today's date). 06/02 LM 40%, LAD prox 70%/mid 70%, LCX prox 60%, mid 80%, non-dominant diffuse mild disease Impression and Plan 69 y.o. male with history of insulin dependent diabetes mellitus, tobacco use, known CAD with priorPCI, ischemic cardiomyopathy s/p ICD without prior discharge, presenting with ACS/crushing chest pain, likely due to lateral MS, found to have surgical CAD with viability on MRI referred for clarence-operative management. Pre-operative management Will continue IABP 1:1 with hep gtt Patient instructed to call with ANY chest pain I personally performed 30 minutes of aggregate critical care time exclusive of procedures and teaching. This includes time spent during direct patient evaluation and reassessment, interpreting diagnostic tests, directing life and/or organ supporting interventions and documentation on the unit. Jim Benites MD Cardiology Attending 06/13/2024 1:15 PM * Yoli Pride, DT - 06/13/2024 7:44 AM EST Nutrition NPO Note George Mehta is a 69 y.o. male Patient marked for follow up, currently NPO. Pt will be seen when diet advances. Visualized patient for overt cachectic appearance: no Active Orders Diet NPO diet (Give Meds) Frequency: Effective Midnight Number of Occurrences: Until Specified Admit Weight: 102 kg Estimated body mass index is 33.45 kg/m?? as calculated from the following: Height as of this encounter: 167.6 cm (5' 6). Weight as of this encounter: 94 kg (207 lb 3.7 oz). Wt Readings from Last 5 Encounters: 06/13/24 94 kg (207 lb 3.7 oz) Patient Vitals for the past 168 hrs: Weight 06/13/24 0325 94 kg (207 lb 3.7 oz) 06/12/24 0300 93.8 kg (206 lb 11.2 oz) 06/11/24 0347 94.5 kg (208 lb 6.4 oz) 06/10/24 0415 93.5 kg (206 lb 3.2 oz) 06/09/24 0438 94 kg (207 lb 3.2 oz) 06/08/24 0346 94 kg (207 lb 3.2 oz) 06/07/24 0418 94.3 kg (207 lb 14.3 oz) Weight loss: not clinically significant Yoli Pride, DTR * Haja Byrnes MD - 06/12/2024 4:41 PM EST CRITICAL CARE ATTENDING PROGRESS NOTE ASSESSMENT, MANAGEMENT, and DECISION MAKING: HTN, HLD, DM2, current TUD (abstinent since admission), ASCVD with multiple prior MS and PCIs, ICM/HFrEF LVEF 30% (all territories viable on cMRI) and PAD who was admitted 06/02/24 with a STEMI afterreceiving lytics locally but re- perfused and cath showed severe recurrent multivessel disease without obvious culprit Under consideration for CABG. Due to the nature of the coronary disease, and left ventricular function, an IABP was placed for stabilization. Does not appear to have any ongoing complications relatedto this. In satisfactory position on chest Xray. Continue pre-operative optimization. Patient seen and examined. George Mehta is a 69 y.o. male has issues that include: Active Hospital Problems Diagnosis STEMI (ST elevation myocardial infarction) Cardiac resynchronization therapy defibrillator (DISEASE AND INSECT CONTROL BOSS-D) - Medtronic Amplia Cardiomyopathy, ischemic Acute on chronic heart failure with reduced ejection fraction (HFrEF, <= 40%) Coronary artery disease involving [place] coronary artery of [place] heart without angina pectoris Type 2 diabetes mellitus Resolved Hospital Problems No resolved problems to display. There are no active non-hospital problems to display for this patient. EXAM: Temp: [34.9 ??C (94.8 ??F)-37 ??C (98.6 ??F)] Heart Rate: [61-97] Resp: [12-24] BP: -- SpO2: [90 %-100 %] Heart Rate from SpO2: [59 bpm-131 bpm] Physical Exam Constitutional: General: He is not in acute distress. Appearance: He is obese. He is not ill-appearing. Cardiovascular: Rate and Rhythm: Normal rate. Pulmonary: Effort: No respiratory distress. Breath sounds: Normal breath sounds. Neurological: Mental Status: He is alert. Body mass index is 33.52 kg/m??. IS PATIENT CRITICALLY ILL ? Is there a high potential of sudden, clinically significant, or life threatening deterioration? Yes Is there a need for direct personal assessment and management to treat/prevent multiple vital organfailure/deterioration? Yes PATIENT IS CRITICALLY ILL WITH THESE DIAGNOSES BEING MANAGED: Acute Myocardial Infarction Unspecified I personally performed 30 minutes of aggregate critical care time exclusive of procedures and teaching. This includes time spent during direct patient evaluation and reassessment, interpreting diagnostic tests, directing life and/or organ supporting interventions and documentation on the unit. Timenoted does not include overlapping time with other physicians or advanced practice providers. * Dain Colón MD - 06/12/2024 7:04 AM EST Images from the original note were not included. . Cardiology Progress Note Patient info: Name: George Mehta : 1955 PCP: Mauro Berumen MD PCP phone number: [phone] Date of Admission: 06/02/2024 ( Hospital Day 10 days ) Attending:Ethel Carrillo MD ID: 69 y.o. male with a h/o DM type 2, HTN, HLD, current smoker (2-3 cigarettes/day), HFrEF with anICD for low EF (~30%), and CAD with prior MS x3 with JENNA placed in [place], [facility], [facility], presented to [facility] with 1 hour of retrosternal CP (05/13) while watching TV, found to have STEMI. Active Problems: Active Hospital Problems Diagnosis STEMI (ST elevation myocardial infarction) Cardiac resynchronization therapy defibrillator (DISEASE AND INSECT CONTROL BOSS-D) - Medtronic Amplia Cardiomyopathy, ischemic Acute on chronic heart failure with reduced ejection fraction (HFrEF, <= 40%) Coronary artery disease involving [place] coronary artery of [place] heart without angina pectoris Type 2 diabetes mellitus Resolved Hospital Problems No resolved problems to display. 24 Hour and Subjective: Yesterday: - Increased glargine to 40u - Stable for planned balloon pump on Friday, CABG Friday - Improved R eye conjunctivitis Overnight: - NAEON This Morning: - R eye symptoms continue to improve with erythromycin ointment. Otherwise, denies chest pain, palpitations, MARTÍNEZ, N/V. Patient ambulating often around the unit without symptoms. Vitals Last value Range last 24 hrs Temperature Temp: 36.6 ??C (97.9 ??F) Temp: [35.8 ??C (96.5 ??F)-36.6 ??C (97.9 ??F)] Heart Rate Heart Rate: 78 Heart Rate: [64-79] Blood Pressure BP: 121/62 BP: (102-147)/(62-77) Art Line BP BP (Arterial Line): -- MAP (NBP): [76 mmHg-93 mmHg] Respiratory Rate Resp: 16 Resp: [16-18] SpO2 SpO2: 93 % SpO2: [93 %-97 %] Oxygen Delivery Oxygen Therapy O2 Device: None (Room air) O2 Flow Rate (L/min): 2 L/min Reason for Oxygen: Patient currently on room air Objective: Intake/Output Summary (Last 24 hours) at 06/12/2024 0704 Last data filed at 06/12/2024 0422 Gross per 24 hour Intake 880 ml Output 2625 ml Net -1745 ml Patient Vitals for the past 168 hrs: Weight 06/12/24 0300 93.8 kg (206 lb 11.2 oz) 06/11/24 0347 94.5 kg (208 lb 6.4 oz) 06/10/24 0415 93.5 kg (206 lb 3.2 oz) 06/09/24 0438 94 kg (207 lb 3.2 oz) 06/08/24 0346 94 kg (207 lb 3.2 oz) 06/07/24 0418 94.3 kg (207 lb 14.3 oz) 06/06/24 0531 94.2 kg (207 lb 10.8 oz) Admit wt: 102 kg Physical Exam: Gen: in bed in NAD; alert, oriented, conversant HEENT: Anicteric, EOMI intact. R eye conjunctiva injected, eyelid red, no discharge CV: RRR, no murmurs/rubs/gallops, JV non-distended Resp: Lung sounds clear but decreased throughout, no wheezes/crackles Abd: Abdomen soft, NDNT Ext: 2+ distal pulses, no pedal edema Lines/Drains/Airways Lines: PIV 06/02/24 2200 20 gauge cephalic vein (lateral side of arm), right (Active) Site Preparation/Maintenance dressing: dry and intact 06/03/24399 Patency/Maintenance flushed without difficulty;blood return, able to obtain;alcohol impregnated capapplied 06/03/24 0120 Phlebitis 0-->no symptoms 06/03/24399 Infiltration 0-->no symptoms 06/03/24 040 Labs: Recent Labs 06/12/24 0303 06/11/24 0213 06/10/24 0155 06/09/24 02106/08/24 0321 WBC 9.69* 9.91* 9.00 9.80* 9.92* HGB 15.2 15.3 14.9 15.5 15.1 HCT 46.6 47.5 46.4 47.4 46.7 PLATELET 194 184 191 205 203 MCV 92.3 92.6 92.2 91.5 91.7 Recent Labs 06/12/24 0303 06/11/24 0213 06/10/24 0155 06/09/24 0825 06/09/24 0212 06/08/24 0321 NA 138 134* 138 -- 136 135 CL 98 96* 100 -- 98 98 CO2 29 28 25 -- 27 25 K 3.8 4.1 4.1 4.6 3.9 4.2 MAGNESIUM 0.79 0.83 0.83 -- 0.83 0.84 CALCIUM 9.5 9.4 9.5 -- 9.7 9.4 BUN 23* 24* 24* -- 24* 25* CREATININE 1.15 1.06 1.06 -- 1.11 1.09 LFTs No results for input(s): PROT, ALBUMIN, AST, ALT, ALKPHOS, BILITOT, BILIDIR in the last 168 hours. Coags No results for input(s): INR, PT, PTT, FIBRINOGEN, DDIMER in the last 168 hours. Invalid input(s): THROMBIN TIME Cardiac Enzymes No results for input(s): CK, TROPONINT, PROBNP in the last 168 hours. Endocrine No results for input(s): TSH, CORTISOL in the last 7068 hours. Invalid input(s): [id number] Recent Labs 06/12/24 0425 06/11/24 2356 06/11/24 2025 06/11/24 1624 06/11/24 1108 06/11/24 0748 06/11/24 0357 06/11/24 0050 06/10/24 1922 06/10/24 1735 06/10/24 1125 06/10/24 0746 POCGLU 132 135 210* 81 233* 184 132 144 236* 123 216* 206* Heme No results for input(s): LDH, HAPTOGLOBIN, URICACID in the last 168 hours. ABG (Arterial Blood Gas) No results found for: PHART, PO2ART, UYR1HTV, [id number] Microbiology: Microbiology Results (Last 30 days) No results found for the last 720 hours. Imaging: Results for orders placed or performed during the hospital encounter of 06/02/24 XR Chest One View (Exam End: 06/03/2024 2:41 AM) Result Value WORKSTATION ID [id number] Impression No radiographically evident acute cardiopulmonary process. Thank you for letting us participate in the care of this patient. If you are a health care provider and have any questions regarding this report, please contact the number below. For patients who have questions please contact the health healthcare corporate account director that requested your imaging first. Electronically signed by: Corazon Mauro MD, [facility] ([phone]), at 06/03/2024 3:06 AM MRI Cardiac Morphology Function wwo Contrast (Exam End: 06/07/2024 1:10 PM) Result Value WORKSTATION ID [id number] Impression - Findings consistent with an ischemic dilated cardiomyopathy. Findings are also suggestive of acute/subacute myocardial infarction in the diagonal or obtuse marginal territory. Specifically, there is microvascular dysfunction, myocardial edema, resting hypoperfusion, and delayed enhancement of the basal to mid anterolateral/lateral segments. There is evidence of remote, non-transmural infarction in the wrap-around LAD territory. Overall, findings suggest that the myocardium is viable; there is no transmural delayed enhancement. - Mildly dilated left ventricle size with [id number] decreased LV systolic function. LV ejection fraction is 26%. Global hypokinesis with akinesis of the basal to mid anterolateral segments. No LV thrombus. - Normal right ventricle size and shape with normal RV systolic function. RV ejection fraction is 53%. - No significant valvular abnormalities. Thank you for letting us participate in the care of this patient. If you are a health care provider and have any questions regarding this report, please contact the number below. For patients who have questions please contact the health healthcare corporate account director that requested your imaging first. Electronically signed by: Kriss Alonzo MD, [facility] ([phone]), at 06/07/2024 2:[address] Chest wo Contrast (Generic) (Exam End: 06/03/2024 4:33 PM) Result Value WORKSTATION ID [id number] Impression Cardiomegaly. Biventricular ICD leads in place. Thank you for letting us participate in the care of this patient. If you are a health care provider and have any questions regarding this report, please contact the number below. For patients who have questions please contact the health healthcare corporate account director that requested your imaging first. Electronically signed by: Stuart Aponte MD, [facility] ([phone]), at 06/03/2024 4:47 PM XR Chest PA & Lateral (Generic) (Exam End: 06/07/2024 7:03 AM) Result Value WORKSTATION ID [id number] Impression Biventricular ICD leads intact and in stable position I have personally reviewed the image(s) and the resident's interpretation and agree with the findings, Stuart Aponte MD at 06/07/2024 10:45 AM Thank you for letting us participate in the care of this patient. If you are a health care provider and have any questions regarding this report, please contact the number below. For patients who have questions please contact the health healthcare corporate account director that requested your imaging first. Electronically signed by: Stuart Aponte MD, [facility] ([phone]), at 06/07/2024 10:45 AM TTE: Limited echo performed by fellow supervisor production department to assess LV function. Left ventricle is mild to moderately dilated. Left ventricular ejection fraction is estimated visually at 25%. There is global dyskinesia with mid-basilar posterior-posterolateral akinesis. Right ventricle is not well seen. RV systolic function is probably normal. There is no prior echo for comparison. Inpatient Medications Scheduled Meds: insulin glargine (Lantus;Semglee) (100 unit/mL) subcutaneous injection 40 Units Subcutaneous Daily insulin lispro 0-15 Units Subcutaneous TID WC erythromycin Right Eye 4 Times Daily insulin lispro 1-6 Units Subcutaneous Q4H JANKI furosemide 40 mg Intravenous Daily sodium chloride 0.9 % (flush) 5 mL Intravenous BID aspirin 81 mg Oral Daily carvediloL 6.25 mg Oral BID escitalopram 20 mg Oral Daily atorvastatin 80 mg Oral QPM Continuous Infusions: heparin (porcine) infusion 1,400 Units/hr (06/12/24 1250) PRN Meds:.insulin lispro, glucose 40% oral geL OR dextrose OR glucagon, potassium chloride ER OR potassium chloride ER, sodium chloride 0.9 % (flush), lidocaine, nitroGLYcerin, atropine, heparin (porcine) infusion AND heparin (porcine) Outpatient Medications Current Outpatient Medications Medication Instructions aspirin 81 mg, Oral, DAILY atorvastatin (LIPITOR) 80 mg, Oral, DAILY carvediloL (COREG) 12.5 mg, Oral, 2 TIMES DAILY cholecalciferol (Vitamin D3) (CHOLECALCIFEROL (VITAMIN D3)) 2,000 Units, Oral, DAILY clopidogreL (PLAVIX) 75 mg, Oral, DAILY empagliflozin (JARDIANCE) 25 mg, Oral, DAILY escitalopram (LEXAPRO) 20 mg, Oral, DAILY glipiZIDE XL (GLUCOTROL XL) 5 mg, Oral, DAILY insulin aspart U-100 (NOVOLOG FLEXPEN U-100 INSULIN) 20 Units, Subcutaneous, 3 TIMES DAILY WITH MEALS INSULIN DEGLUDEC SUBQ 50 Units, Subcutaneous, DAILY metFORMIN (FORTAMET) 1,000 mg, Oral, 2 TIMES DAILY sacubitriL-valsartan (Entresto) 49-51 mg tablet 1 tablet, Oral, 2 TIMES DAILY Assessment & Plan: 69 y.o. male with CAD, ischemic cardiomyopathy with HFrEF (~30% EF), prior MS with stents, DM type 2, HTN, HLD, active smoker, presented with anterior STEMI. Angiography revealed severe multivessel CAD with extensive calcification and YUE 3 flow in all vessels, without a clear culprit lesion. Currently pain-free after TNK, Plavix, ASA, and heparin, with mildly elevated LVEDP at 40 mmHg and mild volume overload. 06/12/24: Patient stable, asymptomatic. Plan to go to seed laboratory technician for balloon pump tomorrow, then [facility]go [facility] prior to CABG on Friday. #ASCVD / STEMI: -Holding Plavix; continue ASA and heparin gtt. -Monitor telmetry -TTE -Viability planning per CT surgery - CT chest (complete) - Carotid duplex bilat (complete) - Cardiac MR (scheduled today Thursday 06/07) - Will need balloon pump prior to CABG on Friday, likely Friday then transfer to [facility] #HFrEF (Ischemic Cardiomyopathy): -Monitor I&O and daily weights. -Continue Lasix 40 mg IV daily - daily standing weights -Continue carvedilol; hold Entresto -Adjust diuretics as needed based on response -Follow TTE and CXR #T2DM: -At home patient is on 50 Units Tresiba and novolog with meals -ISS, and long-acting insulin - Added meal- and snack-associated insulin -Hold Jardiance and metformin -Follow A1C -Consult to diabetes management team for optimization prior to CABG - increase glargine to 40u daily today #R eye conjunctivitis, improving - erythromycin ointment - CTM #Depression: -Continue home escitalopram #Housekeeping: DVT PPx: None GI PPx: Diet: Carb Control diet 60/60/75 CHO counting level 2 Lines: PIV 06/02/24 2200 20 gauge cephalic vein (lateral side of arm), right (Active) Number of days: 9 Code status: FULL CODE Dain Colón MD Cardiology, M1-S2, Pager #[phone] 06/12/24 Associated attestation - Ethel Carrillo MD - 06/12/2024 9:12 PM EST CARDIOLOGY ATTENDING NOTE Patient: George Mehta Date of Service: 06/12/2024 Date of Admission: 06/02/2024 Length of Stay Hospital Day 10 days Please see the below note by Dr. Colón for details. I have interviewed and examined the patient independently and I concur with the assessment and plan as documented, with exceptions/additions/emphases as noted below. The case was discussed on cardiology rounds and we reviewed the plan of care with the team and patient. 69yoM w/h/I HTN, HLD, DM2, current TUD (abstinent since admission), ASCVD with multiple prior MS and PCIs, ICM/HFrEF LVEF 30% (all territories viable on cMRI) and PAD who was admitted with a STEMI after receiving lytics locally but re- perfused and cath showed severe recurrent multivessel disease without obvious culprit now pending planned CABG, likely Friday. Continuing medical management in interim. In discussion w/ CTS, reduced LVEF with increased risk so current plan is to place IABP Friday night in anticipation of OR Friday morning. All discussed with patient and he is in agreement. Attending Attestation and Certification Please see Dain Colón MD's note for details of the patient history of presentation and data. I have discussed, reviewed and agree with the documented History, Physical findings, Assessmentand Plan of care. I have examined the patient myself and personally reviewed all studies. In addition, I certify thatI am a [facility] credentialed attending provider with admitting privileges and that the patient meets or has met medical necessity to require an inpatient IPI level of care meeting a minimum of two midnights or is on the [facility] inpatient only procedure list (status C) due to: acute myocardial infarction requiring titration of IV medication and fluid monitoring and decompensated congestive heart failure requiring IV medication and fluid monitoring Ethel Carrillo MD Cardiovascular Medicine Personal Pager [phone] 06/12/2024 9:12 PM * Alejandra Baumann, MARINE ARCHITECT - 06/11/2024 4:21 PM EST Images from the original note were not included. Follow Up Diabetes Consult Patient Interview Blood glucose values and insulin use reviewed. TDD insulin yesterday 81 units. Suggest increase glargine to 40 units for this evening. Home dose is 50 units. RN reports she was diligent with carb count and ICR 1:5 at lunch, BG now 81 suggesting coverage too aggressive, suggest ICR 1:6 (rule of [id number] = 6.25). George is up and walking around, ready to be home. Objective Temp: [35.8 ??C (96.5 ??F)-36.5 ??C (97.7 ??F)] Heart Rate: [64-74] Resp: [16-20] BP: (102-137)/(68-85) SpO2: [95 %-97 %] Heart Rate from SpO2: [66 bpm-73 bpm] Current Regimen from previous note Lantus:Increased to 35 units this morning Lispro 1:7 insulin to carbohydrate ratio adjusting to 1:6 Lispro for correction q 4 hours based on a correction factor of moderate Diet CC level 2 Monitoring: Q4 Recent Glucose Levels Recent Labs 06/11/24 1108 06/11/24 0748 06/11/24 0357 06/11/24 0050 06/10/24 1922 06/10/24 1735 06/10/24 1125 06/10/24 0746 06/10/24 0423 06/10/24 0005 06/09/24 2036 06/09/24 1727 POCGLU 233* 184 132 144 236* 123 216* 206* 154 125 197 174 ASSESSMENT 69 y.o. male with CAD, ischemic cardiomyopathy with HFrEF (~30% EF), prior MS with stents, DM type 2, HTN, HLD, active smoker, presented with anterior STEMI. Angiography revealed severe multivessel CAD with extensive calcification and YUE 3 flow in all vessels, without a clear culprit lesion. Diabetes suboptimally controlled and complicated by hospitalization. A1C updated and 7.1% suggesting an average glucose of 157 mg/dL for the past 6-8 weeks.Currently has variability of blood glucose levels while hospitalized requiring adjustment of insulin regimen and DM medications. Per primary team: 06/11/24: Increased glargine to 40u this AM, will continue to optimize for CABG. Patient stable, will continue GDMT as below and await surgical planning per CT surgery. Recommending balloon pump support prior to CABG, will plan on placing this weekend and transfer to [facility], likely Friday. With lower BG following meal coverage at ICR 1:5 suggest decrease to ICR 1:6 prior to start of meal. Glargine increase to 40 units with TDD of 81 units yesterday based on preferred 50/50 basal/bolus split. PLAN Lantus:40 units daily Lispro 1:6 insulin to carbohydrate ratio Lispro for correction q 4 hours based on a correction factor of 20 Diet CC Monitoring: Q4 Discharge Considerations: Home DM management: Medications: Jardiance 25mg, Glipizide 10mg, Tresiba U 100 50 units nightly, Humalog 20 units TID ac, metformin 1000mg BID Alejandra Baumann APRN [facility] Endocrinology Diabetes Management Pager [phone] Weekends please page [phone] minutes were spent over the course of the day with this patient encounter including time spent in chart review and relevant lab result review, assessment of and counseling with the patient on diabetes and treatment plan, reviewing all glucose and insulin data, and coordination with the consulting service. * Dain Colón MD - 06/11/2024 7:18 AM EST Images from the original note were not included. . Cardiology Progress Note Patient info: Name: George Mehta : 1955 PCP: Mauro Berumen MD PCP phone number: [phone] Date of Admission: 06/02/2024 ( Hospital Day 9 days ) Attending:Melida Valdes MD ID: 69 y.o. male with a h/o DM type 2, HTN, HLD, current smoker (2-3 cigarettes/day), HFrEF with anICD for low EF (~30%), and CAD with prior MS x3 with JENNA placed in [place], Melanoma, PAD, presented to [facility] with 1 hour of retrosternal CP (05/13) while watching TV, found to have STEMI. Active Problems: Active Hospital Problems Diagnosis STEMI (ST elevation myocardial infarction) Cardiac resynchronization therapy defibrillator (DISEASE AND INSECT CONTROL BOSS-D) - Medtronic Amplia Cardiomyopathy, ischemic Acute on chronic heart failure with reduced ejection fraction (HFrEF, <= 40%) Coronary artery disease involving [place] coronary artery of [place] heart without angina pectoris Type 2 diabetes mellitus Resolved Hospital Problems No resolved problems to display. 24 Hour and Subjective: Yesterday: - No major changes, surgical planning Overnight: - NAEON This Morning: - R eye symptoms continue to improve with erythromycin ointment. Otherwise, denies chest pain, palpitations, MARTÍNEZ, N/V. Vitals Last value Range last 24 hrs Temperature Temp: 36.5 ??C (97.7 ??F) Temp: [36.5 ??C (97.7 ??F)] Heart Rate Heart Rate: 72 Heart Rate: [65-72] Blood Pressure BP: 113/82 BP: (113-136)/(64-85) Art Line BP BP (Arterial Line): -- MAP (NBP): [83 mmHg-100 mmHg] Respiratory Rate Resp: 16 Resp: [16-20] SpO2 SpO2: 96 % SpO2: [95 %-96 %] Oxygen Delivery Oxygen Therapy O2 Device: None (Room air) O2 Flow Rate (L/min): 2 L/min Reason for Oxygen: Patient currently on room air Objective: Intake/Output Summary (Last 24 hours) at 06/11/2024 0718 Last data filed at 06/11/2024 0353 Gross per 24 hour Intake 2044 ml Output 2525 ml Net -481 ml Patient Vitals for the past 168 hrs: Weight 06/11/24 0347 94.5 kg (208 lb 6.4 oz) 06/10/24 0415 93.5 kg (206 lb 3.2 oz) 06/09/24 0438 94 kg (207 lb 3.2 oz) 06/08/24 0346 94 kg (207 lb 3.2 oz) 06/07/24 0418 94.3 kg (207 lb 14.3 oz) 06/06/24 0531 94.2 kg (207 lb 10.8 oz) 06/05/24 0439 94 kg (207 lb 3.7 oz) Admit wt: 102 kg Physical Exam: Gen: in bed in NAD; alert, oriented, conversant HEENT: Anicteric, EOMI intact. R eye conjunctiva injected, eyelid red, no discharge CV: RRR, no murmurs/rubs/gallops, JV non-distended Resp: Lung sounds clear but decreased throughout, no wheezes/crackles Abd: Abdomen soft, NDNT Ext: 2+ distal pulses, no pedal edema Lines/Drains/Airways Lines: PIV 06/02/24 2200 20 gauge cephalic vein (lateral side of arm), right (Active) Site Preparation/Maintenance dressing: dry and intact 06/03/24 0400 Patency/Maintenance flushed without difficulty;blood return, able to obtain;alcohol impregnated capapplied 06/03/24 0120 Phlebitis 0-->no symptoms 06/03/24 040 Infiltration 0-->no symptoms 06/03/24 0400 Labs: Recent Labs 06/11/2421206/10/24 0155 06/09/24 0212 06/08/24 0321 06/07/24 0241 WBC 9.91* 9.00 9.80* 9.92* 10.06* HGB 15.3 14.9 15.5 15.1 14.8 HCT 47.5 46.4 47.4 46.7 46.2 PLATELET 184 191 205 203 202 MCV 92.6 92.2 91.5 91.7 92.0 Recent Labs 06/11/2421206/10/24 01506/09/24 0806/09/2421106/08/24 0321 06/07/24 0944 06/07/24 0241 NA 134* 138 -- 136 135 -- 136 CL 96* 100 -- 98 98 -- 98 CO2 28 25 -- 27 25 -- 28 K 4.1 4.1 4.6 3.9 4.2 < > 3.8 MAGNESIUM 0.83 0.83 -- 0.83 0.84 -- 0.92 CALCIUM 9.4 9.5 -- 9.7 9.4 -- 9.4 BUN 24* 24* -- 24* 25* -- 26* CREATININE 1.06 1.06 -- 1.11 1.09 -- 1.06 < > = values in this interval not displayed. LFTs No results for input(s): PROT, ALBUMIN, AST, ALT, ALKPHOS, BILITOT, BILIDIR in the last 168 hours. Coags No results for input(s): INR, PT, PTT, FIBRINOGEN, DDIMER in the last 168 hours. Invalid input(s): THROMBIN TIME Cardiac Enzymes No results for input(s): CK, TROPONINT, PROBNP in the last 168 hours. Endocrine No results for input(s): TSH, CORTISOL in the last 7068 hours. Invalid input(s): [id number] Recent Labs 06/11/24 0357 06/11/24 0050 06/10/24 1922 06/10/24 1735 06/10/24 1125 06/10/24 0746 06/10/24 0423 06/10/24 0005 06/09/24 2036 06/09/24 1727 06/09/24 1152 06/09/24 0810 POCGLU 132 144 236* 123 216* 206* 154 125 197 174 211* 209* Heme No results for input(s): LDH, HAPTOGLOBIN, URICACID in the last 168 hours. ABG (Arterial Blood Gas) No results found for: PHART, PO2ART, [id number], [id number] Microbiology: Microbiology Results (Last 30 days) No results found for the last 720 hours. Imaging: Results for orders placed or performed during the hospital encounter of 06/02/24 XR Chest One View (Exam End: 06/03/2024 2:41 AM) Result Value WORKSTATION ID [id number] Impression No radiographically evident acute cardiopulmonary process. Thank you for letting us participate in the care of this patient. If you are a health care provider and have any questions regarding this report, please contact the number below. For patients who have questions please contact the health healthcare corporate account director that requested your imaging first. Electronically signed by: Corazon Mauro MD, [facility] ([phone]), at 06/03/2024 3:06 AM MRI Cardiac Morphology Function wwo Contrast (Exam End: 06/07/2024 1:10 PM) Result Value WORKSTATION ID [id number] Impression - Findings consistent with an ischemic dilated cardiomyopathy. Findings are also suggestive of acute/subacute myocardial infarction in the diagonal or obtuse marginal territory. Specifically, there is microvascular dysfunction, myocardial edema, resting hypoperfusion, and delayed enhancement of the basal to mid anterolateral/lateral segments. There is evidence of remote, non-transmural infarction in the wrap-around LAD territory. Overall, findings suggest that the myocardium is viable; there is no transmural delayed enhancement. - Mildly dilated left ventricle size with yxospsin-vl-cylmxjls decreased LV systolic function. LV ejection fraction is 26%. Global hypokinesis with akinesis of the basal to mid anterolateral segments. No LV thrombus. - Normal right ventricle size and shape with normal RV systolic function. RV ejection fraction is 53%. - No significant valvular abnormalities. Thank you for letting us participate in the care of this patient. If you are a health care provider and have any questions regarding this report, please contact the number below. For patients who have questions please contact the health healthcare corporate account director that requested your imaging first. Electronically signed by: Kriss Alonzo MD, [facility] ([phone]), at 06/07/2024 2:[address] Chest wo Contrast (Generic) (Exam End: 06/03/2024 4:33 PM) Result Value WORKSTATION ID [id number] Impression Cardiomegaly. Biventricular ICD leads in place. Thank you for letting us participate in the care of this patient. If you are a health care provider and have any questions regarding this report, please contact the number below. For patients who have questions please contact the health healthcare corporate account director that requested your imaging first. Electronically signed by: Stuart Aponte MD, [facility] ([phone]), at 06/03/2024 4:47 PM XR Chest PA & Lateral (Generic) (Exam End: 06/07/2024 7:03 AM) Result Value WORKSTATION ID [id number] Impression Biventricular ICD leads intact and in stable position I have personally reviewed the image(s) and the resident's interpretation and agree with the findings, Stuart Aponte MD at 06/07/2024 10:45 AM Thank you for letting us participate in the care of this patient. If you are a health care provider and have any questions regarding this report, please contact the number below. For patients who have questions please contact the health healthcare corporate account director that requested your imaging first. Electronically signed by: Stuart Aponte MD, [facility] ([phone]), at 06/07/2024 10:45 AM TTE: Limited echo performed by fellow supervisor production department to assess LV function. Left ventricle is mild to moderately dilated. Left ventricular ejection fraction is estimated visually at 25%. There is global dyskinesia with mid-basilar posterior-posterolateral akinesis. Right ventricle is not well seen. RV systolic function is probably normal. There is no prior echo for comparison. Inpatient Medications Scheduled Meds: insulin lispro 0-15 Units Subcutaneous TID WC insulin glargine (Lantus;Semglee) (100 unit/mL) subcutaneous injection 37 Units Subcutaneous Daily erythromycin Right Eye 4 Times Daily insulin lispro 1-6 Units Subcutaneous Q4H JANKI furosemide 40 mg Intravenous Daily sodium chloride 0.9 % (flush) 5 mL Intravenous BID aspirin 81 mg Oral Daily carvediloL 6.25 mg Oral BID escitalopram 20 mg Oral Daily atorvastatin 80 mg Oral QPM Continuous Infusions: heparin (porcine) infusion 1,400 Units/hr (06/10/24 1840) PRN Meds:.insulin lispro, glucose 40% oral geL OR dextrose OR glucagon, potassium chloride ER OR potassium chloride ER, sodium chloride 0.9 % (flush), lidocaine, nitroGLYcerin, atropine, heparin (porcine) infusion AND heparin (porcine) Outpatient Medications Current Outpatient Medications Medication Instructions aspirin 81 mg, Oral, DAILY atorvastatin (LIPITOR) 80 mg, Oral, DAILY carvediloL (COREG) 12.5 mg, Oral, 2 TIMES DAILY cholecalciferol (Vitamin D3) (CHOLECALCIFEROL (VITAMIN D3)) 2,000 Units, Oral, DAILY clopidogreL (PLAVIX) 75 mg, Oral, DAILY empagliflozin (JARDIANCE) 25 mg, Oral, DAILY escitalopram (LEXAPRO) 20 mg, Oral, DAILY glipiZIDE XL (GLUCOTROL XL) 5 mg, Oral, DAILY insulin aspart U-100 (NOVOLOG FLEXPEN U-100 INSULIN) 20 Units, Subcutaneous, 3 TIMES DAILY WITH MEALS INSULIN DEGLUDEC SUBQ 50 Units, Subcutaneous, DAILY metFORMIN (FORTAMET) 1,000 mg, Oral, 2 TIMES DAILY sacubitriL-valsartan (Entresto) 49-51 mg tablet 1 tablet, Oral, 2 TIMES DAILY Assessment & Plan: 69 y.o. male with CAD, ischemic cardiomyopathy with HFrEF (~30% EF), prior MS with stents, DM type 2, HTN, HLD, active smoker, presented with anterior STEMI. Angiography revealed severe multivessel CAD with extensive calcification and YUE 3 flow in all vessels, without a clear culprit lesion. Currently pain-free after TNK, Plavix, ASA, and heparin, with mildly elevated LVEDP at 40 mmHg and mild volume overload. 06/11/24: Increased glargine to 40u this AM, will continue to optimize for CABG. Patient stable, will continue GDMT as below and await surgical planning per CT surgery. Recommending balloon pump support prior to CABG, will plan on placing this weekend and transfer to [facility], likely Friday. #ASCVD / STEMI: -Holding Plavix; continue ASA and heparin gtt. -Monitor telmetry -TTE -Viability planning per CT surgery - CT chest (complete) - Carotid duplex bilat (complete) - Cardiac MR (scheduled today Thursday 06/07) - Will need balloon pump prior to CABG on Friday, likely Friday then transfer to [facility] #HFrEF (Ischemic Cardiomyopathy): -Monitor I&O and daily weights. -Continue Lasix 40 mg IV daily - daily standing weights -Continue carvedilol; hold Entresto -Adjust diuretics as needed based on response -Follow TTE and CXR #T2DM: -At home patient is on 50 Units Tresiba and novolog with meals -ISS, and long-acting insulin - Added meal- and snack-associated insulin -Hold Jardiance and metformin -Follow A1C -Consult to diabetes management team for optimization prior to CABG - increase glargine to 40u daily today #R eye conjunctivitis, improving - erythromycin ointment - CTM #Depression: -Continue home escitalopram #Housekeeping: DVT PPx: None GI PPx: Diet: Carb Control diet 60/60/75 CHO counting level 2 Lines: PIV 06/02/24 2200 20 gauge cephalic vein (lateral side of arm), right (Active) Number of days: 8 Code status: FULL CODE Dain Colón MD Cardiology, M1-S2, Pager #[phone] 06/11/24 Associated attestation - Ethel Carrillo MD - 06/11/2024 9:37 PM EST CARDIOLOGY ATTENDING NOTE Patient: George Mehta Date of Service: 06/11/2024 Date of Admission: 06/02/2024 Length of Stay Hospital Day 9 days Please see the below note by Dr. Colón for details. I have interviewed and examined the patient independently and I concur with the assessment and plan as documented, with exceptions/additions/emphases as noted below. The case was discussed on cardiology rounds and we reviewed the plan of care with the team and patient. 69yoM w/h/I HTN, HLD, DM2, current TUD (abstinent since admission), ASCVD with multiple prior MS and PCIs, ICM/HFrEF LVEF 30% (all territories viable on cMRI) and PAD who was admitted with a STEMI after receiving lytics locally but re- perfused and cath showed severe recurrent multivessel disease without obvious culprit now pending planned CABG, likely Friday. Continuing medical management in interim. In discussion w/ CTS, reduced LVEF with increased risk so current plan is to place IABP Friday night in anticipation of OR Friday morning. All discussed with patient and he is in agreement. Attending Attestation and Certification Please see Dain Colón MD's note for details of the patient history of presentation and data. I have discussed, reviewed and agree with the documented History, Physical findings, Assessmentand Plan of care. I have examined the patient myself and personally reviewed all studies. In addition, I certify thatI am a [facility]-H credentialed attending provider with admitting privileges and that the patient meets or has met medical necessity to require an inpatient IPI level of care meeting a minimum of two midnights or is on the CMS inpatient only procedure list (status C) due to: acute myocardial infarction requiring titration of IV medication and fluid monitoring and decompensated congestive heart failure requiring IV medication and fluid monitoring Ethel Carrillo MD Cardiovascular Medicine Personal Pager [phone] 06/11/2024 9:35 PM * Chana Bellecole Lyn - 06/10/2024 12:39 PM EST Nutrition Services Note George Mehta is a 69 y.o. male Reason for intervention: hospital day 9 Nutrition Plan: Continue diet order: 60/60/75 CHO Level 2 Encourage good PO Lasix and Insulin noted Monitor weight Patient scheduled for a hospital day 9 nutrition evaluation. Manager Group attempted to meet with pt at bedside multiple times, pt either busy with other providers, not in the room, or sleeping. Chart review performed. Per documentation patient has consistently excellent PO intakes recorded at 100% over the past 4 days. According to dining services software they have ordered an average ~1524 kcals/day and ~70 g protein/day within the same duration. Wt loss noted per documentation, consistent with fluid losses. Please update and trend wts to allow for ongoing assessment of weight changes. Clinical Nutrition to monitor and follow. Active Orders Diet Carb Control diet 60/60/75 CHO counting level 2 Frequency: Effective Now Number of Occurrences: Until Specified Admit Weight: 102 kg Estimated body mass index is 33.28 kg/m?? as calculated from the following: Height as of this encounter: 167.6 cm (5' 6). Weight as of this encounter: 93.5 kg (206 lb 3.2 oz). Wt Readings from Last 5 Encounters: 06/10/24 93.5 kg (206 lb 3.2 oz) *The following information was obtained via pt chart* Weight loss: not clinically significant - consistent w/fluid losses, Net IO Since Admission: -18,221 mL [06/10/24 1601] Appetite: Excellent (75%-100%) Food allergies:no known food allergies Chewing/Swallowing difficulty: none Nausea/Vomiting: no nausea and no vomiting Last Bowel Movement: 06/08/24 Nutrition services to follow weekly through hospital course unless consulted in the interim. [facility] Boss * Mariia Montero RN - 06/10/2024 12:23 PM EST I have met with the patient to: discuss discharge planning needs. provide the [facility], Office of Care Management letter from the Credit Collections Analyst pertaining to rehab referrals. provide a letter describing our affiliations within the [facility] and educate about their right to choose where referrals are sent. provide a list of Home Health Agencies / Durable Medical Equipment vendors which serve their preferred geographic area. provided patient with CMS Star Quality Rating handout. They have requested referrals to: [facility] [address] [place] [id number] RN / PT Anticipated d/c date: 06/20/24 Note routed to a Computer Graphic Designer who will communicate referrals to facilities and provide any required information. * Dain Colón MD - 06/10/2024 7:17 AM EST Images from the original note were not included. . Cardiology Progress Note Patient info: Name: George Mehta : 1955 PCP: Mauro Berumen MD PCP phone number: [phone] Date of Admission: 06/02/2024 ( Hospital Day 8 days ) Attending:Melida Valdes MD ID: 69 y.o. male with a h/o DM type 2, HTN, HLD, current smoker (2-3 cigarettes/day), HFrEF with anICD for low EF (~30%), and CAD with prior MS x3 with JENNA placed in [place], Melanoma, PAD, presented to [facility] with 1 hour of retrosternal CP (05/13) while watching TV, found to have STEMI. Active Problems: Active Hospital Problems Diagnosis STEMI (ST elevation myocardial infarction) Cardiac resynchronization therapy defibrillator (DISEASE AND INSECT CONTROL BOSS-D) - [employer] Amplia Cardiomyopathy, ischemic Acute on chronic heart failure with reduced ejection fraction (HFrEF, <= 40%) Coronary artery disease involving [place] coronary artery of [place] heart without angina pectoris Type 2 diabetes mellitus Resolved Hospital Problems No resolved problems to display. 24 Hour and Subjective: Yesterday: - Planning for CT surgery on Friday - Recommending balloon pump this prior to CABG Overnight: - NAEON This Morning: R eye symptoms continue to improve with erythromycin ointment. Otherwise, denies chest pain, palpitations, MARTÍNEZ, N/V. Vitals Last value Range last 24 hrs Temperature Temp: 36.4 ??C (97.6 ??F) Temp: [36.4 ??C (97.6 ??F)-36.8 ??C (98.3 ??F)] Heart Rate Heart Rate: 73 Heart Rate: [67-73] Blood Pressure BP: 128/71 BP: (109-128)/(61-74) Art Line BP BP (Arterial Line): -- MAP (NBP): [74 mmHg-87 mmHg] Respiratory Rate Resp: 17 Resp: [16-17] SpO2 SpO2: 93 % SpO2: [92 %-96 %] Oxygen Delivery Oxygen Therapy O2 Device: None (Room air) O2 Flow Rate (L/min): 2 L/min Reason for Oxygen: Patient currently on room air Objective: Intake/Output Summary (Last 24 hours) at 06/10/2024 0717 Last data filed at 06/10/2024 0419 Gross per 24 hour Intake 480 ml Output 2900 ml Net -2420 ml Patient Vitals for the past 168 hrs: Weight 06/10/24 0415 93.5 kg (206 lb 3.2 oz) 06/09/24 0438 94 kg (207 lb 3.2 oz) 06/08/24 0346 94 kg (207 lb 3.2 oz) 06/07/24 041 94.3 kg (207 lb 14.3 oz) 06/06/24 0531 94.2 kg (207 lb 10.8 oz) 06/05/24 0439 94 kg (207 lb 3.7 oz) 06/04/24 0443 95 kg (209 lb 6.4 oz) Admit wt: 102 kg Physical Exam: Gen: in bed in NAD; alert, oriented, conversant HEENT: Anicteric, EOMI intact. R eye conjunctiva injected, eyelid red, no discharge CV: RRR, no murmurs/rubs/gallops, JV non-distended Resp: Lung sounds clear but decreased throughout, no wheezes/crackles Abd: Abdomen soft, NDNT Ext: 2+ distal pulses, no pedal edema Lines/Drains/Airways Lines: PIV 06/02/24 2200 20 gauge cephalic vein (lateral side of arm), right (Active) Site Preparation/Maintenance dressing: dry and intact 06/03/24399 Patency/Maintenance flushed without difficulty;blood return, able to obtain;alcohol impregnated capapplied 06/03/24 0120 Phlebitis 0-->no symptoms 06/03/24 040 Infiltration 0-->no symptoms 06/03/24 040 Labs: Recent Labs 06/10/24 0155 06/09/24 0212 06/08/24 0321 06/07/24 0241 06/06/24 0333 WBC 9.00 9.80* 9.92* 10.06* 9.81* HGB 14.9 15.5 15.1 14.8 14.6 HCT 46.4 47.4 46.7 46.2 45.4 PLATELET 191 205 203 202 199 MCV 92.2 91.5 91.7 92.0 92.5 Recent Labs 06/10/24 0155 06/09/24 0825 06/09/24 0212 06/08/24 0321 06/07/24 1722 06/07/24 0944 06/07/24 0241 06/06/24 1017 06/06/24 0333 NA 138 -- 136 135 -- -- 136 -- 136 CL 100 -- 98 98 -- -- 98 -- 97* CO2 25 -- 27 25 -- -- 28 -- 26 K 4.1 4.6 3.9 4.2 4.6 < > 3.8 < > 4.0 MAGNESIUM 0.83 -- 0.83 0.84 -- -- 0.92 -- 0.92 CALCIUM 9.5 -- 9.7 9.4 -- -- 9.4 -- 9.1 BUN 24* -- 24* 25* -- -- 26* -- 27* CREATININE 1.06 -- 1.11 1.09 -- -- 1.06 -- 1.12 < > = values in this interval not displayed. LFTs No results for input(s): PROT, ALBUMIN, AST, ALT, ALKPHOS, BILITOT, BILIDIR in the last 168 hours. Coags No results for input(s): INR, PT, PTT, FIBRINOGEN, DDIMER in the last 168 hours. Invalid input(s): THROMBIN TIME Cardiac Enzymes No results for input(s): CK, TROPONINT, PROBNP in the last 168 hours. Endocrine No results for input(s): TSH, CORTISOL in the last 7068 hours. Invalid input(s): [id number] Recent Labs 06/10/24 0423 06/10/24 0005 06/09/24 2036 06/09/24 1727 06/09/24 1152 06/09/24 0810 06/09/24 0440 06/09/24 0034 06/08/24 2027 06/08/24 1616 06/08/24 1235 06/08/24 0810 POCGLU 154 125 197 174 211* 209* 131 186 176 159 226* 190 Heme No results for input(s): LDH, HAPTOGLOBIN, URICACID in the last 168 hours. ABG (Arterial Blood Gas) No results found for: PHART, PO2ART, PXP9ELF, MVL5OBJ Microbiology: Microbiology Results (Last 30 days) No results found for the last 720 hours. Imaging: Results for orders placed or performed during the hospital encounter of 06/02/24 XR Chest One View (Exam End: 06/03/2024 2:41 AM) Result Value WORKSTATION ID [id number] Impression No radiographically evident acute cardiopulmonary process. Thank you for letting us participate in the care of this patient. If you are a health care provider and have any questions regarding this report, please contact the number below. For patients who have questions please contact the health healthcare corporate account director that requested your imaging first. Electronically signed by: Corazon Mauro MD, [facility] ([phone]), at 06/03/2024 3:06 AM MRI Cardiac Morphology Function wwo Contrast (Exam End: 06/07/2024 1:10 PM) Result Value WORKSTATION ID [id number] Impression - Findings consistent with an ischemic dilated cardiomyopathy. Findings are also suggestive of acute/subacute myocardial infarction in the diagonal or obtuse marginal territory. Specifically, there is microvascular dysfunction, myocardial edema, resting hypoperfusion, and delayed enhancement of the basal to mid anterolateral/lateral segments. There is evidence of remote, non-transmural infarction in the wrap-around LAD territory. Overall, findings suggest that the myocardium is viable; there is no transmural delayed enhancement. - Mildly dilated left ventricle size with obmgmmte-rc-pnohofna decreased LV systolic function. LV ejection fraction is 26%. Global hypokinesis with akinesis of the basal to mid anterolateral segments. No LV thrombus. - Normal right ventricle size and shape with normal RV systolic function. RV ejection fraction is 53%. - No significant valvular abnormalities. Thank you for letting us participate in the care of this patient. If you are a health care provider and have any questions regarding this report, please contact the number below. For patients who have questions please contact the health healthcare corporate account director that requested your imaging first. Electronically signed by: Kriss Alonzo MD, [facility] ([phone]), at 06/07/2024 2:[address] Chest wo Contrast (Generic) (Exam End: 06/03/2024 4:33 PM) Result Value WORKSTATION ID [id number] Impression Cardiomegaly. Biventricular ICD leads in place. Thank you for letting us participate in the care of this patient. If you are a health care provider and have any questions regarding this report, please contact the number below. For patients who have questions please contact the health healthcare corporate account director that requested your imaging first. Electronically signed by: Stuart Aponte MD, [facility] ([phone]), at 06/03/2024 4:47 PM XR Chest PA & Lateral (Generic) (Exam End: 06/07/2024 7:03 AM) Result Value WORKSTATION ID [id number] Impression Biventricular ICD leads intact and in stable position I have personally reviewed the image(s) and the resident's interpretation and agree with the findings, Stuart Aponte MD at 06/07/2024 10:45 AM Thank you for letting us participate in the care of this patient. If you are a health care provider and have any questions regarding this report, please contact the number below. For patients who have questions please contact the health healthcare corporate account director that requested your imaging first. Electronically signed by: Stuart Aponte MD, [facility] ([phone]), at 06/07/2024 10:45 AM TTE: Limited echo performed by fellow supervisor production department to assess LV function. Left ventricle is mild to moderately dilated. Left ventricular ejection fraction is estimated visually at 25%. There is global dyskinesia with mid-basilar posterior-posterolateral akinesis. Right ventricle is not well seen. RV systolic function is probably normal. There is no prior echo for comparison. Inpatient Medications Scheduled Meds: insulin lispro 0-12 Units Subcutaneous TID WC insulin glargine (Lantus;Semglee) (100 unit/mL) subcutaneous injection 35 Units Subcutaneous Daily erythromycin Right Eye 4 Times Daily insulin lispro 1-6 Units Subcutaneous Q4H JANKI furosemide 40 mg Intravenous Daily sodium chloride 0.9 % (flush) 5 mL Intravenous BID aspirin 81 mg Oral Daily carvediloL 6.25 mg Oral BID escitalopram 20 mg Oral Daily atorvastatin 80 mg Oral QPM Continuous Infusions: heparin (porcine) infusion 1,400 Units/hr (06/10/24 0416) PRN Meds:.insulin lispro, glucose 40% oral geL OR dextrose OR glucagon, potassium chloride ER OR potassium chloride ER, sodium chloride 0.9 % (flush), lidocaine, nitroGLYcerin, atropine, heparin (porcine) infusion AND heparin (porcine) Outpatient Medications Current Outpatient Medications Medication Instructions aspirin 81 mg, Oral, DAILY atorvastatin (LIPITOR) 80 mg, Oral, DAILY carvediloL (COREG) 12.5 mg, Oral, 2 TIMES DAILY cholecalciferol (Vitamin D3) (CHOLECALCIFEROL (VITAMIN D3)) 2,000 Units, Oral, DAILY clopidogreL (PLAVIX) 75 mg, Oral, DAILY empagliflozin (JARDIANCE) 25 mg, Oral, DAILY escitalopram (LEXAPRO) 20 mg, Oral, DAILY glipiZIDE XL (GLUCOTROL XL) 5 mg, Oral, DAILY insulin aspart U-100 (NOVOLOG FLEXPEN U-100 INSULIN) 20 Units, Subcutaneous, 3 TIMES DAILY WITH MEALS INSULIN DEGLUDEC SUBQ 50 Units, Subcutaneous, DAILY metFORMIN (FORTAMET) 1,000 mg, Oral, 2 TIMES DAILY sacubitriL-valsartan (Entresto) 49-51 mg tablet 1 tablet, Oral, 2 TIMES DAILY Assessment & Plan: 69 y.o. male with CAD, ischemic cardiomyopathy with HFrEF (~30% EF), prior MS with stents, DM type 2, HTN, HLD, active smoker, presented with anterior STEMI. Angiography revealed severe multivessel CAD with extensive calcification and YUE 3 flow in all vessels, without a clear culprit lesion. Currently pain-free after TNK, Plavix, ASA, and heparin, with mildly elevated LVEDP at 40 mmHg and mild volume overload. 06/10/24: Patient stable, will continue GDMT as below and await surgical planning per CT surgery. Recommending balloon pump support prior to CABG, will plan on placing this and transfer to [facility], likely Friday. #ASCVD / STEMI: -Holding Plavix; continue ASA and heparin gtt. -Consult CT surgery for potential open revascularization. -Monitor telmetry -TTE -Viability planning per CT surgery - CT chest (complete) - Carotid duplex bilat (complete) - Cardiac MR (scheduled today Thursday 06/07) - Will need balloon pump prior to CABG on Friday, likely Friday then transfer to [facility] #HFrEF (Ischemic Cardiomyopathy): -Monitor I&O and daily weights. -Continue Lasix 40 mg IV daily - daily standing weights -Continue carvedilol; hold Entresto -Adjust diuretics as needed based on response -Follow TTE and CXR #T2DM: -At home patient is on 50 Units Tresiba and novolog with meals -ISS, and long-acting insulin - Added meal- and snack-associated insulin -Hold Jardiance and metformin -Follow A1C -Consult to diabetes management team for optimization prior to CABG #R eye conjunctivitis - erythromycin ointment - CTM #Depression: -Continue home escitalopram #Housekeeping: DVT PPx: None GI PPx: Diet: Carb Control diet 60/60/75 CHO counting level 2 Lines: PIV 06/02/24 2200 20 gauge cephalic vein (lateral side of arm), right (Active) Number of days: 7 Code status: FULL CODE Dain Colón MD Cardiology, M1-S2, Pager #[phone] 06/10/24 Associated attestation - Melida Valdes MD - 06/10/2024 4:15 PM EST Cardiology Attending Attestation/Addendum: Please see Dain Colón MD's note for details of the patient history and data. I have discussed, independently reviewed the pertinent diagnostic information, and agree with the principal findings as documented in the History, Physical Findings, Assessment and Plan of Care. The assessment and plan were formulated in discussion with me. #STEMI status post lytics #Ischemic cardiomyopathy EF 25 to 30% with multiple motion abnormalities no significant valve disease #Acute on chronic decompensated heart failure, LVEDP 40 #Diabetes II On insulin #Smoking #LDL 21 -Continue heparin drip -Continue aspirin 81, atorvastatin -Continue Coreg, holding Entresto -Lasix 40 IV daily 69-year-old male with history of melanoma of head s/p resection, diabetes, obesity, smoking, known CAD with moderately reduced EF of 30% who presented as transfer for STEMI. He was initially treated with a lytic and brought directly to the [facility]. Cardiac catheterization demonstrated multivessel disease with severe calcification of the arteries, but no culprit lesion. Given complexity and calcifications CABG was recommended, EDP noted to be 40. Patient underwent evaluation with CT surgery. Cardiac MRI was recommended for viability, it was postponed until Friday due to of ability. In the meantime we are working on getting operative report for ICD as requested by radiology department.Continue diuresis. Weight has been coming down 06/05/2024: Remains stable, with no recurrence of chest pain, no arrhythmia on telemetry. Weight is down and currently he appears euvolemic. ICD records were obtained and scanned in the chart, radiology updated. Will decrease dose of Lasix to maintenance of 40. 06/06/2024: Clinically stable, no angina, arrhythmia. Endocrinology team consulted for diabetic management. Help appreciated 06/07/2024: MRI showed cardiac viability. Will reengage CT surgery for further guidance 06/08/2024: Pending CT eval. Otherwise clinically stable 06/09/2024: Case reviewed with CT surgery plan for CABG on Friday with balloon pump insertion ven low EF. 06/10/2024: Clinically stable, plan for CABG on Friday with balloon pump on Friday. Discussed with the patient who is agreeable Melida Valdes MD Staff Drawer In [employer] * Cherelle Fregoso APRN - 06/09/2024 8:59 AM EST Images from the original note were not included. .Follow Up Diabetes Consult Patient Interview We saw and recommended to change his lispro insulin correction factor. He has trended high still but this is not done yet. This is yielding coverage, which is a reaction rather than correct care. Will make adjustment Objective Temp: [36.5 ??C (97.7 ??F)-36.8 ??C (98.3 ??F)] Heart Rate: [64-80] Resp: [16-18] BP: (112-135)/(68-74) SpO2: [95 %-99 %] Heart Rate from SpO2: [64 bpm-83 bpm] Current Regimen Lantus:Increased to 35 units this morning Lispro 1:7 insulin to carbohydrate ratio --> suggest adjusting to 1:6 Lispro for correction q 4 hours based on a correction factor of moderate Diet CC level 2 Monitoring: Q4 Recent Glucose Levels Recent Labs 06/09/24 1152 06/09/24 0810 06/09/24 0440 06/09/24 0034 06/08/247 06/08/24 1616 06/08/24 1235 06/08/24 0810 06/08/24 0409 06/07/24 2357 06/07/24200406/07/24 1631 POCGLU 211* 209* 131 186 176 159 226* 190 151 188 118 174 ASSESSMENT 69 y.o. male with CAD, ischemic cardiomyopathy with HFrEF (~30% EF), prior MS with stents, DM type 2, HTN, HLD, active smoker, presented with anterior STEMI. Angiography revealed severe multivessel CAD with extensive calcification and YUE 3 flow in all vessels, without a clear culprit lesion. Diabetes suboptimally controlled and complicated by hospitalization. A1C updated and 7.1% suggesting an average glucose of 157 mg/dL for the past 6-8 weeks.Currently has variability of blood glucose levels while hospitalized requiring adjustment of insulin regimen and DM medications. PLAN Lantus:Increased to 35 units this morning Lispro 1:7 insulin to carbohydrate ratio adjusting to 1:6 Lispro for correction q 4 hours based on a correction factor of moderate Diet CC level 2 Monitoring: Q4 Discharge Considerations: Current outpatient diabetes regimen: Medications: Jardiance 25mg, Glipizide 10mg, Tresiba U 100 50 units nightly, Humalog 20 units TID ac, metformin 1000mg BID Monitoring is done CGM Willem 2 Home regimen results in regular hypoglycemia. Insulin will need to be adjusted prior to discharge to optimize glucose control 25 requiring minutes of this 35 minute visit was spent with the patient in counseling on diabetes and treatment plan, reviewing all glucose and insulin data as well as relevant laboratory results with the patient, and coordination of care on the inpatient unit including nursing and primary team. * Dain Colón MD - 06/09/2024 7:44 AM EST Images from the original note were not included. . Cardiology Progress Note Patient info: Name: George Mehta : 1955 PCP: Mauro Berumen MD PCP phone number: [phone] Date of Admission: 06/02/2024 ( Hospital Day 7 days ) Attending:Melida Valdes MD ID: 69 y.o. male with a h/o DM type 2, HTN, HLD, current smoker (2-3 cigarettes/day), HFrEF with anICD for low EF (~30%), and CAD with prior MS x3 with JENNA placed in [place], Melanoma, PAD, presented to [facility] with 1 hour of retrosternal CP (05/13) while watching TV, found to have STEMI. Active Problems: Active Hospital Problems Diagnosis STEMI (ST elevation myocardial infarction) Acute on chronic heart failure with reduced ejection fraction (HFrEF, <= 40%) Coronary artery disease involving [place] coronary artery of [place] heart without angina pectoris Type 2 diabetes mellitus Resolved Hospital Problems No resolved problems to display. 24 Hour and Subjective: Yesterday: - waiting for CT surgery - Began treating for conjunctivitis - Increased glargine Overnight: - NAEON This Morning: R eye itchyness improved with erythromycin ointment. Otherwise, denies chest pain, palpitations, MARTÍNEZ, N/V. Vitals Last value Range last 24 hrs Temperature Temp: 36.5 ??C (97.7 ??F) Temp: [36.4 ??C (97.5 ??F)-36.7 ??C (98.1 ??F)] Heart Rate Heart Rate: 64 Heart Rate: [64-80] Blood Pressure BP: 127/69 BP: (118-135)/(68-72) Art Line BP BP (Arterial Line): -- MAP (NBP): [83 mmHg-88 mmHg] Respiratory Rate Resp: 17 Resp: [16-18] SpO2 SpO2: 99 % SpO2: [95 %-99 %] Oxygen Delivery Oxygen Therapy O2 Device: None (Room air) O2 Flow Rate (L/min): 2 L/min Reason for Oxygen: Patient currently on room air Objective: Intake/Output Summary (Last 24 hours) at 06/09/2024 0744 Last data filed at 06/09/2024 0445 Gross per 24 hour Intake 690 ml Output 2650 ml Net -1960 ml Patient Vitals for the past 168 hrs: Weight 06/09/24 0438 94 kg (207 lb 3.2 oz) 06/08/24 0346 94 kg (207 lb 3.2 oz) 06/07/24 0418 94.3 kg (207 lb 14.3 oz) 06/06/24 0531 94.2 kg (207 lb 10.8 oz) 06/05/24 0439 94 kg (207 lb 3.7 oz) 06/04/24 0443 95 kg (209 lb 6.4 oz) 06/03/24 0636 97.1 kg (214 lb) 06/02/24 2259 102 kg (224 lb 13.9 oz) Admit wt: 102 kg Physical Exam: Gen: in bed in NAD; alert, oriented, conversant HEENT: Anicteric, EOMI intact. R eye conjunctiva injected, eyelid red, no discharge CV: RRR, no murmurs/rubs/gallops, JV non-distended Resp: Lung sounds clear but decreased throughout, no wheezes/crackles Abd: Abdomen soft, NDNT Ext: 2+ distal pulses, no pedal edema Lines/Drains/Airways Lines: PIV 06/02/24 2200 20 gauge cephalic vein (lateral side of arm), right (Active) Site Preparation/Maintenance dressing: dry and intact 06/03/24 0400 Patency/Maintenance flushed without difficulty;blood return, able to obtain;alcohol impregnated capapplied 06/03/24 0120 Phlebitis 0-->no symptoms 06/03/24 0400 Infiltration 0-->no symptoms 06/03/24 0400 Labs: Recent Labs 06/09/24 0212 06/08/24 0321 06/07/24 0241 06/06/24 0333 06/05/24 0344 WBC 9.80* 9.92* 10.06* 9.81* 10.83* HGB 15.5 15.1 14.8 14.6 15.3 HCT 47.4 46.7 46.2 45.4 46.8 PLATELET 205 203 202 199 219 MCV 91.5 91.7 92.0 92.5 92.3 Recent Labs 06/09/24 0212 06/08/24 0321 06/07/24 1722 06/07/24 0944 06/07/24 0241 06/06/24 1017 06/06/24 0333 06/05/24 0904 06/05/24 0344 06/04/24 0438 06/03/24 0213 NA 136 135 -- -- 136 -- 136 -- 136 < > 139 CL 98 98 -- -- 98 -- 97* -- 95* < > 101 CO2 27 25 -- -- 28 -- 26 -- 29 < > 26 K 3.9 4.2 4.6 4.7 3.8 < > 4.0 < > 3.9 < > 4.2 MAGNESIUM 0.83 0.84 -- -- 0.92 -- 0.92 -- 0.92 < > 0.86 PHOS -- -- -- -- -- -- -- -- -- -- 4.4 CALCIUM 9.7 9.4 -- -- 9.4 -- 9.1 -- 9.2 < > 9.8 BUN 24* 25* -- -- 26* -- 27* -- 25* < > 20 CREATININE 1.11 1.09 -- -- 1.06 -- 1.12 -- 1.16 < > 1.13 < > = values in this interval not displayed. LFTs Recent Labs 06/03/24212 PROT 7.0 ALBUMIN 3.8 AST 20 ALT 12 ALKPHOS 76 BILITOT 0.4 BILIDIR <0.2 Coags Recent Labs 06/03/24212 INR 1.0 PT 11.5 PTT 105* Cardiac Enzymes Recent Labs 06/03/24212 PROBNP 1,628* Endocrine No results for input(s): TSH, CORTISOL in the last 7068 hours. Invalid input(s): [id number] Recent Labs 06/09/24 0440 06/09/24 0034 06/08/24 2027 06/08/24 1616 06/08/24 1235 06/08/24 0810 06/08/24 0409 06/07/24 2357 06/07/24 2005 06/07/24 1631 06/07/24 1105 06/07/24 1103 POCGLU 131 186 176 159 226* 190 151 188 118 174 221* 250* Heme No results for input(s): LDH, HAPTOGLOBIN, URICACID in the last 168 hours. ABG (Arterial Blood Gas) No results found for: PHART, PO2ART, UMR3GLM, [id number] Microbiology: Microbiology Results (Last 30 days) No results found for the last 720 hours. Imaging: Results for orders placed or performed during the hospital encounter of 06/02/24 XR Chest One View (Exam End: 06/03/2024 2:41 AM) Result Value WORKSTATION ID [id number] Impression No radiographically evident acute cardiopulmonary process. Thank you for letting us participate in the care of this patient. If you are a health care provider and have any questions regarding this report, please contact the number below. For patients who have questions please contact the health healthcare corporate account director that requested your imaging first. Electronically signed by: Corazon Mauro MD, [facility] ([phone]), at 06/03/2024 3:06 AM MRI Cardiac Morphology Function wwo Contrast (Exam End: 06/07/2024 1:10 PM) Result Value WORKSTATION ID [id number] Impression - Findings consistent with an ischemic dilated cardiomyopathy. Findings are also suggestive of acute/subacute myocardial infarction in the diagonal or obtuse marginal territory. Specifically, there is microvascular dysfunction, myocardial edema, resting hypoperfusion, and delayed enhancement of the basal to mid anterolateral/lateral segments. There is evidence of remote, non-transmural infarction in the wrap-around LAD territory. Overall, findings suggest that the myocardium is viable; there is no transmural delayed enhancement. - Mildly dilated left ventricle size with [id number] decreased LV systolic function. LV ejection fraction is 26%. Global hypokinesis with akinesis of the basal to mid anterolateral segments. No LV thrombus. - Normal right ventricle size and shape with normal RV systolic function. RV ejection fraction is 53%. - No significant valvular abnormalities. Thank you for letting us participate in the care of this patient. If you are a health care provider and have any questions regarding this report, please contact the number below. For patients who have questions please contact the health healthcare corporate account director that requested your imaging first. Electronically signed by: Kriss Alonzo MD, [facility] ([phone]), at 06/07/2024 2:[address] Chest wo Contrast (Generic) (Exam End: 06/03/2024 4:33 PM) Result Value WORKSTATION ID [id number] Impression Cardiomegaly. Biventricular ICD leads in place. Thank you for letting us participate in the care of this patient. If you are a health care provider and have any questions regarding this report, please contact the number below. For patients who have questions please contact the health healthcare corporate account director that requested your imaging first. Electronically signed by: Stuart Aponte MD, [facility] ([phone]), at 06/03/2024 4:47 PM XR Chest PA & Lateral (Generic) (Exam End: 06/07/2024 7:03 AM) Result Value WORKSTATION ID [id number] Impression Biventricular ICD leads intact and in stable position I have personally reviewed the image(s) and the resident's interpretation and agree with the findings, Stuart Aponte MD at 06/07/2024 10:45 AM Thank you for letting us participate in the care of this patient. If you are a health care provider and have any questions regarding this report, please contact the number below. For patients who have questions please contact the health healthcare corporate account director that requested your imaging first. : Limited echo performed by fellow supervisor production department to assess LV function. Left ventricle is mild to moderately dilated. Left ventricular ejection fraction is estimated visually at 25%. There is global dyskinesia with mid-basilar posterior-posterolateral akinesis. Right ventricle is not well seen. RV systolic function is probably normal. There is no prior echo for comparison. Inpatient Medications Scheduled Meds: insulin glargine (Lantus;Semglee) (100 unit/mL) subcutaneous injection 35 Units Subcutaneous Daily erythromycin Right Eye 4 Times Daily insulin lispro 0-10 Units Subcutaneous TID insulin lispro 1-6 Units Subcutaneous Q4H JANKI furosemide 40 mg Intravenous Daily sodium chloride 0.9 % (flush) 5 mL Intravenous BID aspirin 81 mg Oral Daily carvediloL 6.25 mg Oral BID escitalopram 20 mg Oral Daily atorvastatin 80 mg Oral QPM Continuous Infusions: heparin (porcine) infusion 1,400 Units/hr (06/08/24 1846) PRN Meds:.glucose 40% oral geL OR dextrose OR glucagon, insulin lispro, potassium chloride ER OR potassium chloride ER, sodium chloride 0.9 % (flush), lidocaine, nitroGLYcerin, atropine, heparin (porcine) infusion AND heparin (porcine) Outpatient Medications Current Outpatient Medications Medication Instructions aspirin 81 mg, Oral, DAILY atorvastatin (LIPITOR) 80 mg, Oral, DAILY carvediloL (COREG) 12.5 mg, Oral, 2 TIMES DAILY cholecalciferol (Vitamin D3) (CHOLECALCIFEROL (VITAMIN D3)) 2,000 Units, Oral, DAILY clopidogreL (PLAVIX) 75 mg, Oral, DAILY empagliflozin (JARDIANCE) 25 mg, Oral, DAILY escitalopram (LEXAPRO) 20 mg, Oral, DAILY glipiZIDE XL (GLUCOTROL XL) 5 mg, Oral, DAILY insulin aspart U-100 (NOVOLOG FLEXPEN U-100 INSULIN) 20 Units, Subcutaneous, 3 TIMES DAILY WITH MEALS INSULIN DEGLUDEC SUBQ 50 Units, Subcutaneous, DAILY metFORMIN (FORTAMET) 1,000 mg, Oral, 2 TIMES DAILY sacubitriL-valsartan (Entresto) 49-51 mg tablet 1 tablet, Oral, 2 TIMES DAILY Assessment & Plan: 69 y.o. male with CAD, ischemic cardiomyopathy with HFrEF (~30% EF), prior MS with stents, DM type 2, HTN, HLD, active smoker, presented with anterior STEMI. Angiography revealed severe multivessel CAD with extensive calcification and YUE 3 flow in all vessels, without a clear culprit lesion. Currently pain-free after TNK, Plavix, ASA, and heparin, with mildly elevated LVEDP at 40 mmHg and mild volume overload. 06/09/24: Patient stable, will continue GDMT as below and await surgical planning per CT surgery. Patient with new R eye conjunctivitis, improving with erythromycin ointment. If no improvement, will plan to rule out corneal abrasion, but low concern at this time given no history of known trauma andno pain. Continue to titrate insulin requirements with diabetes management team assistance. #ASCVD / STEMI: -Holding Plavix; continue ASA and heparin gtt. -Consult CT surgery for potential open revascularization. -If not a surgical candidate, consider high-risk PCI with atherectomy if appropriate. -Monitor telmetry -Follow lipid panel -TTE -Viability planning per CT surgery - CT chest (complete) - Carotid duplex bilat (complete) - Cardiac MR (scheduled today Thursday 06/07) #HFrEF (Ischemic Cardiomyopathy): -Monitor I&O and daily weights. -Continue Lasix 40 mg IV daily - daily standing weights -Continue carvedilol; hold Entresto -Adjust diuretics as needed based on response -Follow TTE and CXR #T2DM: -At home patient is on 50 Units Tresiba and novolog with meals -ISS, and long-acting insulin - Added meal- and snack-associated insulin -Hold Jardiance and metformin -Follow A1C -Consult to diabetes management team for optimization prior to CABG #R eye conjunctivitis - erythromycin ointment - CTM #Depression: -Continue home escitalopram #Housekeeping: DVT PPx: None GI PPx: Diet: Carb Control diet 60//75 CHO counting level 2 Lines: PIV 06/02/24 2200 20 gauge cephalic vein (lateral side of arm), right (Active) Number of days: 6 Code status: FULL CODE Dain Colón MD Cardiology, M1-S2, Pager #[phone] 06/09/24 Associated attestation - Melida Valdes MD - 06/09/2024 7:27 PM EST Cardiology Attending Attestation/Addendum: Please see Dain Colón MD's note for details of the patient history and data. I have discussed, independently reviewed the pertinent diagnostic information, and agree with the principal findings as documented in the History, Physical Findings, Assessment and Plan of Care. The assessment and plan were formulated in discussion with me. #STEMI status post lytics #Ischemic cardiomyopathy EF 25 to 30% with multiple motion abnormalities no significant valve disease #Acute on chronic decompensated heart failure, LVEDP 40 #Diabetes #Smoking #LDL 21 -Continue heparin drip -Continue aspirin 81, atorvastatin -Continue Coreg, holding Entresto -MRI with viability on Friday -Lasix 40 IV daily 69-year-old male with history of melanoma of head s/p resection, diabetes, obesity, smoking, known CAD with moderately reduced EF of 30% who presented as transfer for STEMI. He was initially treated with a lytic and brought directly to the [facility]. Cardiac catheterization demonstrated multivessel disease with severe calcification of the arteries, but no culprit lesion. Given complexity and calcifications CABG was recommended, EDP noted to be 40. Patient underwent evaluation with CT surgery. Cardiac MRI was recommended for viability, it was postponed until Friday due to of ability. In the meantime we are working on getting operative report for ICD as requested by radiology department.Continue diuresis. Weight has been coming down 06/05/2024: Remains stable, with no recurrence of chest pain, no arrhythmia on telemetry. Weight is down and currently he appears euvolemic. ICD records were obtained and scanned in the chart, radiology updated. Will decrease dose of Lasix to maintenance of 40. 06/06/2024: Clinically stable, no angina, arrhythmia. Endocrinology team consulted for diabetic management. Help appreciated 06/07/2024: MRI showed cardiac viability. Will reengage CT surgery for further guidance 06/08/2024: Pending CT eval. Otherwise clinically stable 06/09/2024: Case reviewed with CT surgery plan for CABG on Friday with balloon pump insertion low EF. Melida Valdes MD Staff Drawer In [employer] * Alejandra Baumann, MARINE ARCHITECT - 06/08/2024 4:10 PM EST Images from the original note were not included. Follow Up Diabetes Consult Patient Interview Blood glucose values and insulin use reviewed. Glargine increased to 35 units this am with elevatedfasting BG. Home insulin dose 50 units Tresiba nightly, with 20 units Humalog TIC ac. Glucose climbing following meals suggesting need for tighter carb ratio, suggest adjusting from 1:7--> 1:6. Ptfrustrated by not knowing what the plan is from the surgical team. RN at bedside. Objective Temp: [36.4 ??C (97.5 ??F)-36.8 ??C (98.2 ??F)] Heart Rate: [66-74] Resp: [16-18] BP: (105-134)/(67-82) SpO2: [95 %-98 %] Heart Rate from SpO2: [67 bpm-74 bpm] Current Regimen from previous note 1. Lantus 13 units stat, --> Tomorrow: 33 units daily 2. Meal-associated Lispro 1unit: 7 gm carb ratio for each meal 3. Correction Lispro, ISF 20 4. Diet: CC 5. Monitoring: INCREASE to q 4 hours Recent Glucose Levels Recent Labs 06/08/24 1235 06/08/24 0810 06/08/24 0409 06/07/24 2357 06/07/24200406/07/24 1631 06/07/24 1105 06/07/24 1103 06/07/24 0745 06/07/24 0425 06/07/24 0008 06/06/242017 POCGLU 226* 190 151 188 118 174 221* 250* 175 127 182 143 ASSESSMENT 69 y.o. male with CAD, ischemic cardiomyopathy with HFrEF (~30% EF), prior MS with stents, DM type 2, HTN, HLD, active smoker, presented with anterior STEMI. Angiography revealed severe multivessel CAD with extensive calcification and YUE 3 flow in all vessels, without a clear culprit lesion. Diabetes suboptimally controlled and complicated by hospitalization. A1C updated and 7.1% suggesting an average glucose of 157 mg/dL for the past 6-8 weeks.Currently has variability of blood glucose levels while hospitalized requiring adjustment of insulin regimen and DM medications. Glargine increased to 35 units this am with elevated fasting BG. Home insulin dose 50 units Tresibanightly, with 20 units Humalog TIC ac. Glucose climbing following meals suggesting need for tightercarb ratio, suggest adjusting from 1:7--> 1:6. Reached out to team to recommend adjustment PLAN Lantus:Increased to 35 units this morning Lispro 1:7 insulin to carbohydrate ratio --> suggest adjusting to 1:6 Lispro for correction q 4 hours based on a correction factor of moderate Diet CC level 2 Monitoring: Q4 Discharge Considerations: Current outpatient diabetes regimen: Medications: Jardiance 25mg, Glipizide 10mg, Tresiba U 100 50 units nightly, Humalog 20 units TID ac, metformin 1000mg BID Monitoring is done CGM Willem 2 Home regimen results in regular hypoglycemia. Insulin will need to be adjusted prior to discharge to optimize glucose control Alejandra Baumann APRN [facility] Endocrinology Diabetes Management Pager [phone] Weekends please page [phone] 35 minutes were spent over the course of the day with this patient encounter including time spent in chart review and relevant lab result review, assessment of and counseling with the patient on diabetes and treatment plan, reviewing all glucose and insulin data, and coordination with the consulting service. * Dain Colón MD - 06/08/2024 7:26 AM EST Images from the original note were not included. . Cardiology Progress Note Patient info: Name: George Mehta : 1955 PCP: Mauro Berumen MD PCP phone number: [phone] Date of Admission: 06/02/2024 ( Hospital Day 6 days ) Attending:Melida Valdes MD ID: 69 y.o. male with a h/o DM type 2, HTN, HLD, current smoker (2-3 cigarettes/day), HFrEF with anICD for low EF (~30%), and CAD with prior MS x3 with JENNA placed in [place], Melanoma, PAD, presented to [facility] with 1 hour of retrosternal CP (05/13) while watching TV, found to have STEMI. Active Problems: Active Hospital Problems Diagnosis STEMI (ST elevation myocardial infarction) Acute on chronic heart failure with reduced ejection fraction (HFrEF, <= 40%) Coronary artery disease involving [place] coronary artery of [place] heart without angina pectoris Type 2 diabetes mellitus Resolved Hospital Problems No resolved problems to display. 24 Hour and Subjective: Yesterday: - Viability studies complete, awaiting CT surgery decision Overnight: - NAEON This Morning: - Increased glargine per DM mgmt recs - denies chest pain, palpitations, diaphoresis, N/V, SOB, orthopnea - New R eye itchyness, red and injected on exam, no signs of discharge. No pain, only complains of itchyness. Denies known trauma. Vitals Last value Range last 24 hrs Temperature Temp: 36.5 ??C (97.7 ??F) Temp: [36.5 ??C (97.7 ??F)-36.8 ??C (98.2 ??F)] Heart Rate Heart Rate: 66 Heart Rate: [61-75] Blood Pressure BP: 105/67 BP: (105-134)/(67-82) Art Line BP BP (Arterial Line): -- MAP (NBP): [78 mmHg-92 mmHg] Respiratory Rate Resp: 18 Resp: [14-18] SpO2 SpO2: 95 % SpO2: [95 %-100 %] Oxygen Delivery Oxygen Therapy O2 Device: None (Room air) O2 Flow Rate (L/min): 2 L/min Reason for Oxygen: Patient currently on room air Objective: Intake/Output Summary (Last 24 hours) at 06/08/2024 0726 Last data filed at 06/08/2024 0500 Gross per 24 hour Intake 415 ml Output 3550 ml Net -3135 ml Patient Vitals for the past 168 hrs: Weight 06/08/24 0346 94 kg (207 lb 3.2 oz) 06/07/24 0418 94.3 kg (207 lb 14.3 oz) 06/06/24 0531 94.2 kg (207 lb 10.8 oz) 06/05/24 0439 94 kg (207 lb 3.7 oz) 06/04/24 0443 95 kg (209 lb 6.4 oz) 06/03/24 0636 97.1 kg (214 lb) 06/02/24 2259 102 kg (224 lb 13.9 oz) Admit wt: 102 kg Physical Exam: Gen: in bed in NAD; alert, oriented, conversant HEENT: Anicteric, EOMI intact. R eye conjunctiva injected, eyelid red, no discharge CV: RRR, no murmurs/rubs/gallops, JV non-distended Resp: Lung sounds clear but decreased throughout, no wheezes/crackles Abd: Abdomen soft, NDNT Ext: 2+ distal pulses, no pedal edema Lines/Drains/Airways Lines: PIV 06/02/24 2200 20 gauge cephalic vein (lateral side of arm), right (Active) Site Preparation/Maintenance dressing: dry and intact 06/03/24 040 Patency/Maintenance flushed without difficulty;blood return, able to obtain;alcohol impregnated capapplied 06/03/24 0120 Phlebitis 0-->no symptoms 06/03/24 0400 Infiltration 0-->no symptoms 06/03/24 0400 Labs: Recent Labs 06/08/24 0321 06/07/24 0241 11/10/25 33206/05/2434306/04/24437 WBC 9.92* 10.06* 9.81* 10.83* 11.45* HGB 15.1 14.8 14.6 15.3 16.0 HCT 46.7 46.2 45.4 46.8 49.6* PLATELET 203 202 199 219 222 MCV 91.7 92.0 92.5 92.3 92.7 Recent Labs 06/08/24 0321 06/07/24 1722 06/07/24 0944 06/07/24 0241 06/06/24 1437 06/06/24 1017 06/06/24 0333 06/05/24 0904 06/05/24 0344 06/04/24 1041 06/04/2443706/03/24212 NA 135 -- -- 136 -- -- 136 -- 136 -- 137 139 CL 98 -- -- 98 -- -- 97* -- 95* -- 97* 101 CO2 25 -- -- 28 -- -- 26 -- 29 -- 29 26 K 4.2 4.6 4.7 3.8 4.3 < > 4.0 < > 3.9 < > 3.6 4.2 MAGNESIUM 0.84 -- -- 0.92 -- -- 0.92 -- 0.92 -- 0.84 0.86 PHOS -- -- -- -- -- -- -- -- -- -- -- 4.4 CALCIUM 9.4 -- -- 9.4 -- -- 9.1 -- 9.2 -- 9.0 9.8 BUN 25* -- -- 26* -- -- 27* -- 25* -- 22* 20 CREATININE 1.09 -- -- 1.06 -- -- 1.12 -- 1.16 -- 1.22 1.13 < > = values in this interval not displayed. LFTs Recent Labs 06/03/24212 PROT 7.0 ALBUMIN 3.8 AST 20 ALT 12 ALKPHOS 76 BILITOT 0.4 BILIDIR <0.2 Coags Recent Labs 06/03/24212 INR 1.0 PT 11.5 PTT 105* Cardiac Enzymes Recent Labs 10/31/24 0213 PROBNP 1,628* Endocrine No results for input(s): TSH, CORTISOL in the last 7068 hours. Invalid input(s): [id number] Recent Labs 06/08/24 0409 06/07/24 2357 06/07/24200406/07/24 1631 06/07/24 1105 06/07/24 1103 06/07/24 0745 06/07/24 0425 06/07/24 0008 06/06/24 2018 06/06/24 1539 06/06/24 1339 POCGLU 151 188 118 174 221* 250* 175 127 182 143 147 317* Heme No results for input(s): LDH, HAPTOGLOBIN, URICACID in the last 168 hours. ABG (Arterial Blood Gas) No results found for: PHART, PO2ART, AYI1LSJ, QBI5DUU Microbiology: Microbiology Results (Last 30 days) No results found for the last 720 hours. Imaging: Results for orders placed or performed during the hospital encounter of 06/02/24 XR Chest One View (Exam End: 06/03/2024 2:41 AM) Result Value WORKSTATION ID [id number] Impression No radiographically evident acute cardiopulmonary process. Thank you for letting us participate in the care of this patient. If you are a health care provider and have any questions regarding this report, please contact the number below. For patients who have questions please contact the health healthcare corporate account director that requested your imaging first. Electronically signed by: Corazon Mauro MD, [facility] ([phone]), at 06/03/2024 3:06 AM MRI Cardiac Morphology Function wwo Contrast (Exam End: 06/07/2024 1:10 PM) Result Value WORKSTATION ID [id number] Impression - Findings consistent with an ischemic dilated cardiomyopathy. Findings are also suggestive of acute/subacute myocardial infarction in the diagonal or obtuse marginal territory. Specifically, there is microvascular dysfunction, myocardial edema, resting hypoperfusion, and delayed enhancement of the basal to mid anterolateral/lateral segments. There is evidence of remote, non-transmural infarction in the wrap-around LAD territory. Overall, findings suggest that the myocardium is viable; there is no transmural delayed enhancement. - Mildly dilated left ventricle size with ilwqhmia-th-crblasen decreased LV systolic function. LV ejection fraction is 26%. Global hypokinesis with akinesis of the basal to mid anterolateral segments. No LV thrombus. - Normal right ventricle size and shape with normal RV systolic function. RV ejection fraction is 53%. - No significant valvular abnormalities. Thank you for letting us participate in the care of this patient. If you are a health care provider and have any questions regarding this report, please contact the number below. For patients who have questions please contact the health healthcare corporate account director that requested your imaging first. Electronically signed by: Kriss Alonzo MD, [facility] ([phone]), at 06/07/2024 2:[address] Chest wo Contrast (Generic) (Exam End: 06/03/2024 4:33 PM) Result Value WORKSTATION ID [id number] Impression Cardiomegaly. Biventricular ICD leads in place. Thank you for letting us participate in the care of this patient. If you are a health care provider and have any questions regarding this report, please contact the number below. For patients who have questions please contact the health healthcare corporate account director that requested your imaging first. Electronically signed by: Stuart Aponte MD, [facility] ([phone]), at 06/03/2024 4:47 PM XR Chest PA & Lateral (Generic) (Exam End: 06/07/2024 7:03 AM) Result Value WORKSTATION ID [id number] Impression Biventricular ICD leads intact and in stable position I have personally reviewed the image(s) and the resident's interpretation and agree with the findings, Stuart Aponte MD at 06/07/2024 10:45 AM Thank you for letting us participate in the care of this patient. If you are a health care provider and have any questions regarding this report, please contact the number below. For patients who have questions please contact the health healthcare corporate account director that requested your imaging first. Electronically signed by: Stuart Aponte MD, [facility] ([phone]), at 06/07/2024 10:45 AM TTE: Limited echo performed by fellow supervisor production department to assess LV function. Left ventricle is mild to moderately dilated. Left ventricular ejection fraction is estimated visually at 25%. There is global dyskinesia with mid-basilar posterior-posterolateral akinesis. Right ventricle is not well seen. RV systolic function is probably normal. There is no prior echo for comparison. Inpatient Medications Scheduled Meds: insulin glargine (Lantus;Semglee) (100 unit/mL) subcutaneous injection 35 Units Subcutaneous Daily insulin lispro 0-10 Units Subcutaneous TID WC insulin lispro 1-6 Units Subcutaneous Q4H JANKI furosemide 40 mg Intravenous Daily sodium chloride 0.9 % (flush) 5 mL Intravenous BID aspirin 81 mg Oral Daily carvediloL 6.25 mg Oral BID escitalopram 20 mg Oral Daily atorvastatin 80 mg Oral QPM Continuous Infusions: heparin (porcine) infusion 1,400 Units/hr (06/08/24 5647) PRN Meds:.insulin lispro, potassium chloride ER OR potassium chloride ER, sodium chloride 0.9 %(flush), lidocaine, nitroGLYcerin, atropine, heparin (porcine) infusion AND heparin (porcine), glucose 40% oral geL OR dextrose OR glucagon Outpatient Medications Current Outpatient Medications Medication Instructions aspirin 81 mg, Oral, DAILY atorvastatin (LIPITOR) 80 mg, Oral, DAILY carvediloL (COREG) 12.5 mg, Oral, 2 TIMES DAILY cholecalciferol (Vitamin D3) (CHOLECALCIFEROL (VITAMIN D3)) 2,000 Units, Oral, DAILY clopidogreL (PLAVIX) 75 mg, Oral, DAILY empagliflozin (JARDIANCE) 25 mg, Oral, DAILY escitalopram (LEXAPRO) 20 mg, Oral, DAILY glipiZIDE XL (GLUCOTROL XL) 5 mg, Oral, DAILY insulin aspart U-100 (NOVOLOG FLEXPEN U-100 INSULIN) 20 Units, Subcutaneous, 3 TIMES DAILY WITH MEALS INSULIN DEGLUDEC SUBQ 50 Units, Subcutaneous, DAILY metFORMIN (FORTAMET) 1,000 mg, Oral, 2 TIMES DAILY sacubitriL-valsartan (Entresto) 49-51 mg tablet 1 tablet, Oral, 2 TIMES DAILY Assessment & Plan: 69 y.o. male with CAD, ischemic cardiomyopathy with HFrEF (~30% EF), prior MS with stents, DM type 2, HTN, HLD, active smoker, presented with anterior STEMI. Angiography revealed severe multivessel CAD with extensive calcification and YUE 3 flow in all vessels, without a clear culprit lesion. Currently pain-free after TNK, Plavix, ASA, and heparin, with mildly elevated LVEDP at 40 mmHg and mild volume overload. 06/08/24: Patient stable, will continue GDMT as below and await surgical planning per CT surgery. Patient with new R eye conjunctivitis, will treat with erythromycin ointment. If no improvement, willplan to rule out corneal abrasion, but low concern at this time given no history of known trauma and no pain. Continue to titrate insulin requirements with diabetes management team assistance. #ASCVD / STEMI: -Holding Plavix; continue ASA and heparin gtt. -Consult CT surgery for potential open revascularization. -If not a surgical candidate, consider high-risk PCI with atherectomy if appropriate. -Monitor telmetry -Follow lipid panel -TTE -Viability planning per CT surgery - CT chest (complete) - Carotid duplex bilat (complete) - Cardiac MR (scheduled today Thursday 06/07) #HFrEF (Ischemic Cardiomyopathy): -Monitor I&O and daily weights. -Continue Lasix 40 mg IV daily - daily standing weights -Continue carvedilol; hold Entresto -Adjust diuretics as needed based on response -Follow TTE and CXR #T2DM: -At home patient is on 50 Units Tresiba and novolog with meals -ISS, and long-acting insulin - Added meal- and snack-associated insulin -Hold Jardiance and metformin -Follow A1C -Consult to diabetes management team for optimization prior to CABG #R eye conjunctivitis - erythromycin ointment - CTM #Depression: -Continue home escitalopram #Housekeeping: DVT PPx: None GI PPx: Diet: Carb Control diet 60/60/75 CHO counting level 2 Lines: PIV 06/02/24 2200 20 gauge cephalic vein (lateral side of arm), right (Active) Number of days: 5 Code status: FULL CODE Dain Colón MD Cardiology, M1-S2, Pager #[phone] 06/08/24 Associated attestation - Melida Valdes MD - 06/08/2024 6:27 PM EST Cardiology Attending Attestation/Addendum: Please see Dain Colón MD's note for details of the patient history and data. I have discussed, independently reviewed the pertinent diagnostic information, and agree with the principal findings as documented in the History, Physical Findings, Assessment and Plan of Care. The assessment and plan were formulated in discussion with me. #STEMI status post lytics #Ischemic cardiomyopathy EF 25 to 30% with multiple motion abnormalities no significant valve disease #Acute on chronic decompensated heart failure, LVEDP 40 #Diabetes #Smoking #LDL 21 -Continue heparin drip -Continue aspirin 81, atorvastatin -Continue Coreg, holding Entresto -MRI with viability on Friday -Lasix 40 IV daily 69-year-old male with history of melanoma of head s/p resection, diabetes, obesity, smoking, known CAD with moderately reduced EF of 30% who presented as transfer for STEMI. He was initially treated with a lytic and brought directly to the [facility]. Cardiac catheterization demonstrated multivessel disease with severe calcification of the arteries, but no culprit lesion. Given complexity and calcifications CABG was recommended, EDP noted to be 40. Patient underwent evaluation with CT surgery. Cardiac MRI was recommended for viability, it was postponed until Friday due to of ability. In the meantime we are working on getting operative report for ICD as requested by radiology department.Continue diuresis. Weight has been coming down 06/05/2024: Remains stable, with no recurrence of chest pain, no arrhythmia on telemetry. Weight is down and currently he appears euvolemic. ICD records were obtained and scanned in the chart, radiology updated. Will decrease dose of Lasix to maintenance of 40. 06/06/2024: Clinically stable, no angina, arrhythmia. Endocrinology team consulted for diabetic management. Help appreciated 06/07/2024: MRI showed cardiac viability. Will reengage CT surgery for further guidance 06/08/2024: Pending CT eval. Otherwise clinically stable Melida Valdes MD Staff Drawer In [employer] [employer] * Ross Manuel PA - 06/07/2024 12:00 PM EST Cardiac Electrophysiology CIED Interrogation/Programming Note Asked by MRI staff to evaluate and program Medtronic DISEASE AND INSECT CONTROL BOSS-D to allow for MR imaging. Patient Active Problem List Diagnosis ','STEMI (ST elevation myocardial infarction) Acute on chronic heart failure with reduced ejection fraction (HFrEF, <= 40%) Coronary artery disease involving [place] coronary artery of [place] heart without angina pectoris Type 2 diabetes mellitus Device Data: Medtronic Amplia MRI Quad DISEASE AND INSECT CONTROL BOSS-D [id number] #[id number] 06/16/2019 RA Medtronic 4076 CapSureFix Novus [id number] 06/16/2019 RV Medtronic [id number] 06/16/2019 LV Medtronic 4298 Attain Performa MRI [id number] 06/16/2019 DDD @ 50/130/130 Adaptive Bi-V and LV VF >188bpm ATP, 35j x6 FVT >188-222bpm burst 2, 35jx5 VT Battery longevity: 2.5yrs; charge time 4s P wave: 2.3mV R wave: >20.0mV Atrial impedance: 458 ohms RV impedance: 646 ohms LV impedance: 722 ohms Atrial threshold: 0.5V @ 0.4ms RV threshold: LV threshold: 1.75V @ 0.4ms AP 0.2% 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 Interrogated device to determine suitability for MRI 2. Programmed to MRI safe mode - VOO @ 70 3. Scan performed 4. Programming restored to baseline settings 5. Reinterrogated to verify appropriate function and settings 6. Device follow up as previously scheduled Provider: HENOK Meyer EP Consult attending physician: Libby Barton MD EP Consult positional pager #[phone](EPMD) EP Device interrogation positional pager # [phone] * Dain Colón MD - 06/07/2024 7:09 AM EST Images from the original note were not included. . Cardiology Progress Note Patient info: Name: George Mehta : 1955 PCP: Mauro Berumen MD PCP phone number: [phone] Date of Admission: 06/02/2024 ( Hospital Day 5 days ) Attending:Melida Valdes MD ID: 69 y.o. male with a h/o DM type 2, HTN, HLD, current smoker (2-3 cigarettes/day), HFrEF with anICD for low EF (~30%), and CAD with prior MS x3 with JENNA placed in [place], Melanoma, PAD, presented to [facility] with 1 hour of retrosternal CP (05/13) while watching TV, found to have STEMI. Active Problems: Active Hospital Problems Diagnosis STEMI (ST elevation myocardial infarction) Acute on chronic heart failure with reduced ejection fraction (HFrEF, <= 40%) Coronary artery disease involving [place] coronary artery of [place] heart without angina pectoris Type 2 diabetes mellitus Resolved Hospital Problems No resolved problems to display. 24 Hour and Subjective: Yesterday: - Med rec complete - Diabetes consult, insulin orders adjusted Overnight: - MRI requested 2 view CXR prior to MRI today, complete. This Morning: - denies chest pain, palpitations, diaphoresis, N/V, SOB, orthopnea Vitals Last value Range last 24 hrs Temperature Temp: 36.5 ??C (97.7 ??F) Temp: [36.4 ??C (97.5 ??F)-36.6 ??C (97.9 ??F)] Heart Rate Heart Rate: 63 Heart Rate: [61-68] Blood Pressure BP: 125/57 BP: (115-143)/(57-80) Art Line BP BP (Arterial Line): -- MAP (NBP): [75 mmHg-99 mmHg] Respiratory Rate Resp: 14 Resp: [14-16] SpO2 SpO2: 97 % SpO2: [92 %-97 %] Oxygen Delivery Oxygen Therapy O2 Device: None (Room air) O2 Flow Rate (L/min): 2 L/min Reason for Oxygen: Patient currently on room air Objective: Intake/Output Summary (Last 24 hours) at 06/07/2024 0709 Last data filed at 06/07/2024 0400 Gross per 24 hour Intake 770 ml Output 3225 ml Net -2455 ml Patient Vitals for the past 168 hrs: Weight 06/07/24 0418 94.3 kg (207 lb 14.3 oz) 06/06/24 0531 94.2 kg (207 lb 10.8 oz) 06/05/24 0439 94 kg (207 lb 3.7 oz) 06/04/24 0443 95 kg (209 lb 6.4 oz) 06/03/24 0636 97.1 kg (214 lb) 06/02/24 2259 102 kg (224 lb 13.9 oz) Admit wt: 102 kg Physical Exam: Gen: in bed in NAD; alert, oriented, conversant HEENT: Anicteric, EOMI intact CV: RRR, no murmurs/rubs/gallops, JV non-distended Resp: Lung sounds clear but decreased throughout, no wheezes/crackles Abd: Abdomen soft, NDNT Ext: 2+ distal pulses, no pedal edema Lines/Drains/Airways Lines: PIV 06/02/24 2200 20 gauge cephalic vein (lateral side of arm), right (Active) Site Preparation/Maintenance dressing: dry and intact 06/03/24399 Patency/Maintenance flushed without difficulty;blood return, able to obtain;alcohol impregnated capapplied 06/03/24 012 Phlebitis 0-->no symptoms 06/03/24399 Infiltration 0-->no symptoms 06/03/24399 Labs: Recent Labs 06/07/24 0241 06/06/24 0333 06/05/24 0344 06/04/24 0438 06/03/24 0213 WBC 10.06* 9.81* 10.83* 11.45* 11.16* HGB 14.8 14.6 15.3 16.0 15.0 HCT 46.2 45.4 46.8 49.6* 47.4 PLATELET 202 199 219 222 217 MCV 92.0 92.5 92.3 92.7 93.1 Recent Labs 06/07/24 0241 06/06/24 1437 06/06/24 1017 06/06/24 0333 06/05/24 0904 06/05/24 0344 06/04/24 1041 06/04/24 0438 06/03/24 0213 NA 136 -- -- 136 -- 136 -- 137 139 CL 98 -- -- 97* -- 95* -- 97* 101 CO2 28 -- -- 26 -- 29 -- 29 26 K 3.8 4.3 4.3 4.0 4.3 3.9 < > 3.6 4.2 MAGNESIUM 0.92 -- -- 0.92 -- 0.92 -- 0.84 0.86 PHOS -- -- -- -- -- -- -- -- 4.4 CALCIUM 9.4 -- -- 9.1 -- 9.2 -- 9.0 9.8 BUN 26* -- -- 27* -- 25* -- 22* 20 CREATININE 1.06 -- -- 1.12 -- 1.16 -- 1.22 1.13 < > = values in this interval not displayed. LFTs Recent Labs 06/03/24212 PROT 7.0 ALBUMIN 3.8 AST 20 ALT 12 ALKPHOS 76 BILITOT 0.4 BILIDIR <0.2 Coags Recent Labs 06/03/24 0213 INR 1.0 PT 11.5 PTT 105* Cardiac Enzymes Recent Labs 06/03/24212 PROBNP 1,628* Endocrine No results for input(s): TSH, CORTISOL in the last 7068 hours. Invalid input(s): [id number] Recent Labs 06/07/24 0425 06/07/24 0008 06/06/24 2018 06/06/24 1539 06/06/24 1339 06/06/24 1134 06/06/24 0757 06/06/24 0653 06/05/24 2231 06/05/24 1622 06/05/24 1134 06/05/24 0727 POCGLU 127 182 143 147 317* 264* 195 187 238* 205* 211* 166 Heme No results for input(s): LDH, HAPTOGLOBIN, URICACID in the last 168 hours. ABG (Arterial Blood Gas) No results found for: PHART, PO2ART, IDX3AWR, [id number] Microbiology: Microbiology Results (Last 30 days) No results found for the last 720 hours. Imaging: Results for orders placed or performed during the hospital encounter of 06/02/24 XR Chest One View (Exam End: 06/03/2024 2:41 AM) Result Value WORKSTATION ID [id number] Impression No radiographically evident acute cardiopulmonary process. Thank you for letting us participate in the care of this patient. If you are a health care provider and have any questions regarding this report, please contact the number below. For patients who have questions please contact the health healthcare corporate account director that requested your imaging first. Electronically signed by: Corazon Mauro MD, [facility] ([phone]), at 06/03/2024 3:[address] Chest wo Contrast (Generic) (Exam End: 06/03/2024 4:33 PM) Result Value WORKSTATION ID [id number] Impression Cardiomegaly. Biventricular ICD leads in place. Thank you for letting us participate in the care of this patient. If you are a health care provider and have any questions regarding this report, please contact the number below. For patients who have questions please contact the health healthcare corporate account director that requested your imaging first. Electronically signed by: Stuart Aponte MD, [facility] ([phone]), at 06/03/2024 4:47 PM TTE: Limited echo performed by fellow supervisor production department to assess LV function. Left ventricle is mild to moderately dilated. Left ventricular ejection fraction is estimated visually at 25%. There is global dyskinesia with mid-basilar posterior-posterolateral akinesis. Right ventricle is not well seen. RV systolic function is probably normal. There is no prior echo for comparison. Inpatient Medications Scheduled Meds: insulin glargine (Lantus;Semglee) (100 unit/mL) subcutaneous injection 33 Units Subcutaneous Daily insulin lispro 0-10 Units Subcutaneous TID WC insulin lispro 1-6 Units Subcutaneous Q4H JANKI furosemide 40 mg Intravenous Daily sodium chloride 0.9 % (flush) 5 mL Intravenous BID aspirin 81 mg Oral Daily carvediloL 6.25 mg Oral BID escitalopram 20 mg Oral Daily atorvastatin 80 mg Oral QPM Continuous Infusions: heparin (porcine) infusion 1,400 Units/hr (06/06/24 0381) PRN Meds:.insulin lispro, potassium chloride ER OR potassium chloride ER, sodium chloride 0.9 %(flush), lidocaine, nitroGLYcerin, atropine, heparin (porcine) infusion AND heparin (porcine), glucose 40% oral geL OR dextrose OR glucagon Outpatient Medications Current Outpatient Medications Medication Instructions aspirin 81 mg, Oral, DAILY atorvastatin (LIPITOR) 80 mg, Oral, DAILY carvediloL (COREG) 12.5 mg, Oral, 2 TIMES DAILY cholecalciferol (Vitamin D3) (CHOLECALCIFEROL (VITAMIN D3)) 2,000 Units, Oral, DAILY clopidogreL (PLAVIX) 75 mg, Oral, DAILY empagliflozin (JARDIANCE) 25 mg, Oral, DAILY escitalopram (LEXAPRO) 20 mg, Oral, DAILY glipiZIDE XL (GLUCOTROL XL) 5 mg, Oral, DAILY insulin aspart U-100 (NOVOLOG FLEXPEN U-100 INSULIN) 20 Units, Subcutaneous, 3 TIMES DAILY WITH MEALS INSULIN DEGLUDEC SUBQ 50 Units, Subcutaneous, DAILY metFORMIN (FORTAMET) 1,000 mg, Oral, 2 TIMES DAILY sacubitriL-valsartan (Entresto) 49-51 mg tablet 1 tablet, Oral, 2 TIMES DAILY Assessment & Plan: 69 y.o. male with CAD, ischemic cardiomyopathy with HFrEF (~30% EF), prior MS with stents, DM type 2, HTN, HLD, active smoker, presented with anterior STEMI. Angiography revealed severe multivessel CAD with extensive calcification and YUE 3 flow in all vessels, without a clear culprit lesion. Currently pain-free after TNK, Plavix, ASA, and heparin, with mildly elevated LVEDP at 40 mmHg and mild volume overload. 06/07/24: MRI today. Otherwise, patient stable, will continue GDMT as below and await surgical planning per CT surgery. #ASCVD / STEMI: -Holding Plavix; continue ASA and heparin gtt. -Consult CT surgery for potential open revascularization. -If not a surgical candidate, consider high-risk PCI with atherectomy if appropriate. -Monitor telmetry -Follow lipid panel -TTE -Viability planning per CT surgery - CT chest (complete) - Carotid duplex bilat (complete) - Cardiac MR (scheduled today Thursday 06/07) #HFrEF (Ischemic Cardiomyopathy): -Monitor I&O and daily weights. -Continue Lasix 40 mg IV daily - daily standing weights -Continue carvedilol; hold Entresto -Adjust diuretics as needed based on response -Follow TTE and CXR #T2DM: -At home patient is on 50 Units Tresiba and novolog with meals -ISS, and long-acting insulin - Added meal- and snack-associated insulin -Hold Jardiance and metformin -Follow A1C -Consult to diabetes management team for optimization prior to CABG #Depression: -Continue home escitalopram #Housekeeping: DVT PPx: None GI PPx: Diet: Carb Control diet 60/60/75 CHO counting level 2 Lines: PIV 06/02/24 2200 20 gauge cephalic vein (lateral side of arm), right (Active) Number of days: 4 Code status: @CODESTATUS@ Dain Colón MD (PGY-1) Cardiology, M1-S2, Pager #[phone] 06/07/24 Associated attestation - Melida Valdes MD - 06/07/2024 6:45 PM EST Cardiology Attending Attestation/Addendum: Please see Dain Colón MD's note for details of the patient history and data. I have discussed, independently reviewed the pertinent diagnostic information, and agree with the principal findings as documented in the History, Physical Findings, Assessment and Plan of Care. The assessment and plan were formulated in discussion with me. #STEMI status post lytics #Ischemic cardiomyopathy EF 25 to 30% with multiple motion abnormalities no significant valve disease #Acute on chronic decompensated heart failure, LVEDP 40 #Diabetes #Smoking #LDL 21 -Continue heparin drip -Continue aspirin 81, atorvastatin -Continue Coreg, holding Entresto -MRI with viability on Friday -Lasix 40 IV daily 69-year-old male with history of melanoma of head s/p resection, diabetes, obesity, smoking, known CAD with moderately reduced EF of 30% who presented as transfer for STEMI. He was initially treated with a lytic and brought directly to the [facility]. Cardiac catheterization demonstrated multivessel disease with severe calcification of the arteries, but no culprit lesion. Given complexity and calcifications CABG was recommended, EDP noted to be 40. Patient underwent evaluation with CT surgery. Cardiac MRI was recommended for viability, it was postponed until Friday due to of ability. In the meantime we are working on getting operative report for ICD as requested by radiology department.Continue diuresis. Weight has been coming down 06/05/2024: Remains stable, with no recurrence of chest pain, no arrhythmia on telemetry. Weight is down and currently he appears euvolemic. ICD records were obtained and scanned in the chart, radiology updated. Will decrease dose of Lasix to maintenance of 40. 06/06/2024: Clinically stable, no angina, arrhythmia. Endocrinology team consulted for diabetic management. Help appreciated 06/07/2024: MRI showed cardiac viability. Will reengage CT surgery for further guidance. Melida Valdes MD Staff Drawer In [employer] * Dain Colón MD - 06/06/2024 7:17 AM EST Images from the original note were not included. . Cardiology Progress Note Patient info: Name: George Mehta : 1955 PCP: Mauro Berumen MD PCP phone number: [phone] Date of Admission: 06/02/2024 ( Hospital Day 4 days ) Attending:Melida Valdes MD ID: 69 y.o. male with a h/o DM type 2, HTN, HLD, current smoker (2-3 cigarettes/day), HFrEF with anICD for low EF (~30%), and CAD with prior MS x3 with JENNA placed in [place], Melanoma, PAD, presented to [facility] with 1 hour of retrosternal CP (05/13) while watching TV, found to have STEMI. Active Problems: Active Hospital Problems Diagnosis STEMI (ST elevation myocardial infarction) Acute on chronic heart failure with reduced ejection fraction (HFrEF, <= 40%) Coronary artery disease involving [place] coronary artery of [place] heart without angina pectoris Type 2 diabetes mellitus Resolved Hospital Problems No resolved problems to display. 24 Hour and Subjective: Yesterday: - MRI confirmed that they now have all needed info regarding the implant, scheduled for cardiac MRIon Thursday 06/07 - Started Lasix 40 mg IV qd Overnight: - NAEON This Morning: - denies chest pain, palpitations, diaphoresis, N/V, SOB, orthopnea Vitals Last value Range last 24 hrs Temperature Temp: 36.4 ??C (97.6 ??F) Temp: [36.4 ??C (97.5 ??F)-36.7 ??C (98 ??F)] Heart Rate Heart Rate: 68 Heart Rate: [67-73] Blood Pressure BP: 112/73 BP: (110-131)/(72-85) Art Line BP BP (Arterial Line): -- MAP (NBP): [86 mmHg-95 mmHg] Respiratory Rate Resp: 12 Resp: [12-16] SpO2 SpO2: 91 % SpO2: [91 %-99 %] Oxygen Delivery Oxygen Therapy O2 Device: None (Room air) O2 Flow Rate (L/min): 2 L/min Reason for Oxygen: Patient currently on room air Objective: Intake/Output Summary (Last 24 hours) at 06/06/2024 0717 Last data filed at 06/06/2024 0346 Gross per 24 hour Intake 600 ml Output 2650 ml Net -2050 ml Patient Vitals for the past 168 hrs: Weight 06/06/24 0531 94.2 kg (207 lb 10.8 oz) 06/05/24 0439 94 kg (207 lb 3.7 oz) 06/04/24 0443 95 kg (209 lb 6.4 oz) 06/03/24 0636 97.1 kg (214 lb) 06/02/24 2259 102 kg (224 lb 13.9 oz) Admit wt: 102 kg Physical Exam: Gen: in bed in NAD; alert, oriented, conversant HEENT: Anicteric, EOMI intact CV: RRR, no murmurs/rubs/gallops, JV non-distended Resp: Lung sounds clear but decreased throughout, no wheezes/crackles Abd: Abdomen soft, NDNT Ext: 2+ distal pulses, no pedal edema Lines/Drains/Airways Lines: PIV 06/02/24 2200 20 gauge cephalic vein (lateral side of arm), right (Active) Site Preparation/Maintenance dressing: dry and intact 06/03/24 0400 Patency/Maintenance flushed without difficulty;blood return, able to obtain;alcohol impregnated capapplied 06/03/24 0120 Phlebitis 0-->no symptoms 06/03/24 0400 Infiltration 0-->no symptoms 06/03/24 0400 Labs: Recent Labs 06/06/24 0333 06/05/24 0344 06/04/24 0438 06/03/24 0213 WBC 9.81* 10.83* 11.45* 11.16* HGB 14.6 15.3 16.0 15.0 HCT 45.4 46.8 49.6* 47.4 PLATELET 199 219 222 217 MCV 92.5 92.3 92.7 93.1 Recent Labs 06/06/24 0333 06/05/24 0904 06/05/24 0344 06/04/24 2234 06/04/24 1635 06/04/24 1041 06/04/24 0438 06/03/24 0213 NA 136 -- 136 -- -- -- 137 139 CL 97* -- 95* -- -- -- 97* 101 CO2 26 -- 29 -- -- -- 29 26 K 4.0 4.3 3.9 3.7 4.0 < > 3.6 4.2 MAGNESIUM 0.92 -- 0.92 -- -- -- 0.84 0.86 PHOS -- -- -- -- -- -- -- 4.4 CALCIUM 9.1 -- 9.2 -- -- -- 9.0 9.8 BUN 27* -- 25* -- -- -- 22* 20 CREATININE 1.12 -- 1.16 -- -- -- 1.22 1.13 < > = values in this interval not displayed. LFTs Recent Labs 06/03/24212 PROT 7.0 ALBUMIN 3.8 AST 20 ALT 12 ALKPHOS 76 BILITOT 0.4 BILIDIR <0.2 Coags Recent Labs 06/03/24212 INR 1.0 PT 11.5 PTT 105* Cardiac Enzymes Recent Labs 06/03/24212 PROBNP 1,628* Endocrine No results for input(s): TSH, CORTISOL in the last 7068 hours. Invalid input(s): [id number] Recent Labs 06/06/24 0653 06/05/24 2231 06/05/24 1622 06/05/24 1134 06/05/24 0727 06/04/24 1943 06/04/24 1526 06/04/24 1109 06/04/24 0711 06/03/24 2005 06/03/24 1748 06/03/24 1114 POCGLU 187 238* 205* 211* 166 175 154 188 182 136 191 166 Heme No results for input(s): LDH, HAPTOGLOBIN, URICACID in the last 168 hours. ABG (Arterial Blood Gas) No results found for: PHART, PO2ART, SCX3TDK, [id number] Microbiology: Microbiology Results (Last 30 days) No results found for the last 720 hours. Imaging: Results for orders placed or performed during the hospital encounter of 06/02/24 XR Chest One View (Exam End: 06/03/2024 2:41 AM) Result Value WORKSTATION ID [id number] Impression No radiographically evident acute cardiopulmonary process. Thank you for letting us participate in the care of this patient. If you are a health care provider and have any questions regarding this report, please contact the number below. For patients who have questions please contact the health healthcare corporate account director that requested your imaging first. Electronically signed by: Corazon Mauro MD, [facility] ([phone]), at 06/03/2024 3:[address] Chest wo Contrast (Generic) (Exam End: 06/03/2024 4:33 PM) Result Value WORKSTATION ID [id number] Impression Cardiomegaly. Biventricular ICD leads in place. Thank you for letting us participate in the care of this patient. If you are a health care provider and have any questions regarding this report, please contact the number below. For patients who have questions please contact the health healthcare corporate account director that requested your imaging first. Electronically signed by: Stuart Aponte MD, [facility] ([phone]), at 06/03/2024 4:47 PM TTE: Limited echo performed by fellow supervisor production department to assess LV function. Left ventricle is mild to moderately dilated. Left ventricular ejection fraction is estimated visually at 25%. There is global dyskinesia with mid-basilar posterior-posterolateral akinesis. Right ventricle is not well seen. RV systolic function is probably normal. There is no prior echo for comparison. Inpatient Medications Scheduled Meds: furosemide 40 mg Intravenous Daily sodium chloride 0.9 % (flush) 5 mL Intravenous BID aspirin 81 mg Oral Daily carvediloL 6.25 mg Oral BID escitalopram 20 mg Oral Daily atorvastatin 80 mg Oral QPM insulin lispro 1-6 Units Subcutaneous TID AC insulin glargine (Lantus;Semglee) (100 unit/mL) subcutaneous injection 0.2 Units/kg/day Subcutaneous Daily Continuous Infusions: heparin (porcine) infusion 1,400 Units/hr (06/06/24 0429) PRN Meds:.potassium chloride ER OR potassium chloride ER, sodium chloride 0.9 % (flush), lidocaine, nitroGLYcerin, atropine, heparin (porcine) infusion AND heparin (porcine), glucose 40% oralgeL OR dextrose OR glucagon Outpatient Medications No current outpatient medications Assessment & Plan: 69 y.o. male with CAD, ischemic cardiomyopathy with HFrEF (~30% EF), prior MS with stents, DM type 2, HTN, HLD, active smoker, presented with anterior STEMI. Angiography revealed severe multivessel CAD with extensive calcification and YUE 3 flow in all vessels, without a clear culprit lesion. Currently pain-free after TNK, Plavix, ASA, and heparin, with mildly elevated LVEDP at 40 mmHg and mild volume overload. 06/06/24: MRI scheduled Thursday 06/07 for viability planning. Appears euvolemic on exam, will continue with diuresis Lasix 40 IV QD in setting of mildly elevated LVEDP. Added meal- and snack-associatedinsulin this AM. Will put in formal consult to diabetes management team to optimize for CABG. #ASCVD / STEMI: -Holding Plavix; continue ASA and heparin gtt. -Consult CT surgery for potential open revascularization. -If not a surgical candidate, consider high-risk PCI with atherectomy if appropriate. -Monitor telmetry -Follow lipid panel -TTE -Viability planning per CT surgery - CT chest (complete) - Carotid duplex bilat (complete) - Cardiac MR (scheduled Thursday 06/07) #HFrEF (Ischemic Cardiomyopathy): -Monitor I&O and daily weights. -Continue Lasix 40 mg IV daily - daily standing weights -Continue carvedilol; hold Entresto -Adjust diuretics as needed based on response -Follow TTE and CXR #T2DM: -At home patient is on 50 Units Tresiba and novolog with meals -ISS, and long-acting insulin - Added meal- and snack-associated insulin -Hold Jardiance and metformin -Follow A1C -Consult to diabetes management team for optimization prior to CABG #Depression: -Continue home escitalopram #Housekeeping: DVT PPx: None GI PPx: Diet: Carb Control diet 60/60/75 CHO counting level 2 Lines: PIV 06/02/24 2200 20 gauge cephalic vein (lateral side of arm), right (Active) Number of days: 3 Code status: @MIRIAMTATUS@ Dain Colón MD (PGY-1) Cardiology, M1-S2, Pager #[phone] 06/06/24 Associated attestation - Melida Valdes MD - 06/06/2024 5:36 PM EST Cardiology Attending Attestation/Addendum: Please see Dain Colón MD's note for details of the patient history and data. I have discussed, independently reviewed the pertinent diagnostic information, and agree with the principal findings as documented in the History, Physical Findings, Assessment and Plan of Care. The assessment and plan were formulated in discussion with me. #STEMI status post lytics #Ischemic cardiomyopathy EF 25 to 30% with multiple motion abnormalities no significant valve disease #Acute on chronic decompensated heart failure, LVEDP 40 #Diabetes #Smoking #LDL 21 -Continue heparin drip -Continue aspirin 81, atorvastatin -Continue Coreg, holding Entresto -MRI with viability on Friday -Lasix 40 IV daily 69-year-old male with history of melanoma of head s/p resection, diabetes, obesity, smoking, known CAD with moderately reduced EF of 30% who presented as transfer for STEMI. He was initially treated with a lytic and brought directly to the [facility]. Cardiac catheterization demonstrated multivessel disease with severe calcification of the arteries, but no culprit lesion. Given complexity and calcifications CABG was recommended, EDP noted to be 40. Patient underwent evaluation with CT surgery. Cardiac MRI was recommended for viability, it was postponed until Friday due to of ability. In the meantime we are working on getting operative report for ICD as requested by radiology department.Continue diuresis. Weight has been coming down 06/05/2024: Remains stable, with no recurrence of chest pain, no arrhythmia on telemetry. Weight is down and currently he appears euvolemic. ICD records were obtained and scanned in the chart, radiology updated. Will decrease dose of Lasix to maintenance of 40. 06/06/2024: Clinically stable, no angina, arrhythmia. Endocrinology team consulted for diabetic management. Help appreciated Melida Valdes MD Staff Drawer In [employer] * Frederick Dunn MD - 06/05/2024 8:13 AM EDT Images from the original note were not included. . Cardiology Progress Note Patient info: Name: George Mehta : 1955 PCP: Mauro Berumen MD PCP phone number: [phone] Date of Admission: 06/02/2024 ( Hospital Day 3 days ) Attending:Melida Valdes MD ID: 69 y.o. male with a h/o DM type 2, HTN, HLD, current smoker (2-3 cigarettes/day), HFrEF with anICD for low EF (~30%), and CAD with prior MS x3 with JENNA placed in [place], Melanoma, PAD, presented to [facility] with 1 hour of retrosternal CP (05/13) while watching TV, found to have STEMI. Active Problems: Active Hospital Problems Diagnosis STEMI (ST elevation myocardial infarction) Resolved Hospital Problems No resolved problems to display. 24 Hour and Subjective: Yesterday: - CT surgert ordered cardiac Cts, carotid duplex bilat - Cardiac MR ordered for viability planning - TTE showed worsening EF 25-30% Overnight: - NAEON This Morning: - denies chest pain, palpitations, diaphoresis, N/V Vitals Last value Range last 24 hrs Temperature Temp: 36.5 ??C (97.7 ??F) Temp: [36.2 ??C (97.1 ??F)-36.6 ??C (97.9 ??F)] Heart Rate Heart Rate: 67 Heart Rate: [67-73] Blood Pressure BP: 123/80 BP: (123-128)/(70-80) Art Line BP BP (Arterial Line): -- MAP (NBP): [84 mmHg-91 mmHg] Respiratory Rate Resp: 16 Resp: [14-20] SpO2 SpO2: 99 % SpO2: [91 %-99 %] Oxygen Delivery Oxygen Therapy O2 Device: None (Room air) O2 Flow Rate (L/min): 2 L/min Reason for Oxygen: Patient currently on room air Objective: Intake/Output Summary (Last 24 hours) at 06/05/2024 1327 Last data filed at 06/05/2024 0845 Gross per 24 hour Intake 1390 ml Output 3575 ml Net -2185 ml Patient Vitals for the past 168 hrs: Weight 06/05/24 0439 94 kg (207 lb 3.7 oz) 06/04/24 0443 95 kg (209 lb 6.4 oz) 06/03/24 0636 97.1 kg (214 lb) 06/02/24 2259 102 kg (224 lb 13.9 oz) Admit wt: 102 kg Physical Exam: Gen: in bed in NAD; alert, oriented, conversant HEENT: Anicteric, EOMI intact CV: RRR, no murmurs/rubs/gallops, JV non-distended Resp: Lung sounds clear but decreased throughout, no wheezes/crackles Abd: Abdomen soft, NDNT Ext: 2+ distal pulses, no pedal edema Lines/Drains/Airways Lines: PIV 06/02/24 2200 20 gauge cephalic vein (lateral side of arm), right (Active) Site Preparation/Maintenance dressing: dry and intact 06/03/24399 Patency/Maintenance flushed without difficulty;blood return, able to obtain;alcohol impregnated capapplied 06/03/24 0120 Phlebitis 0-->no symptoms 06/03/24399 Infiltration 0-->no symptoms 06/03/24399 Labs: Recent Labs 06/05/2434306/04/2443706/03/24212 WBC 10.83* 11.45* 11.16* HGB 15.3 16.0 15.0 HCT 46.8 49.6* 47.4 PLATELET 219 222 217 MCV 92.3 92.7 93.1 Recent Labs 06/05/24 0904 06/05/24 0344 06/04/24 2234 06/04/24 1635 06/04/24 1041 06/04/24 0438 06/03/24212 NA -- 136 -- -- -- 137 139 CL -- 95* -- -- -- 97* 101 CO2 -- 29 -- -- -- 29 26 K 4.3 3.9 3.7 4.0 4.0 3.6 4.2 MAGNESIUM -- 0.92 -- -- -- 0.84 0.86 PHOS -- -- -- -- -- -- 4.4 CALCIUM -- 9.2 -- -- -- 9.0 9.8 BUN -- 25* -- -- -- 22* 20 CREATININE -- 1.16 -- -- -- 1.22 1.13 LFTs Recent Labs 10/31/24 0213 PROT 7.0 ALBUMIN 3.8 AST 20 ALT 12 ALKPHOS 76 BILITOT 0.4 BILIDIR <0.2 Coags Recent Labs 06/03/24 021 INR 1.0 PT 11.5 PTT 105* Cardiac Enzymes Recent Labs 06/03/24 021 PROBNP 1,628* Endocrine No results for input(s): TSH, CORTISOL in the last 7068 hours. Invalid input(s): [id number] Recent Labs 06/05/24 1134 06/05/24 0727 06/04/24 1943 06/04/24 1526 06/04/24 1109 06/04/24 0711 06/03/24 2005 06/03/24 1748 06/03/24 1114 06/03/24 0754 06/02/24 2331 POCGLU 211* 166 175 154 188 182 136 191 166 195 156 Heme No results for input(s): LDH, HAPTOGLOBIN, URICACID in the last 168 hours. ABG (Arterial Blood Gas) No results found for: PHART, PO2ART, [id number], [id number] Microbiology: Microbiology Results (Last 30 days) No results found for the last 720 hours. Imaging: Results for orders placed or performed during the hospital encounter of 06/02/24 XR Chest One View (Exam End: 06/03/2024 2:41 AM) Result Value WORKSTATION ID [id number] Impression No radiographically evident acute cardiopulmonary process. Thank you for letting us participate in the care of this patient. If you are a health care provider and have any questions regarding this report, please contact the number below. For patients who have questions please contact the health healthcare corporate account director that requested your imaging first. Chest wo Contrast (Generic) (Exam End: 06/03/2024 4:33 PM) Result Value WORKSTATION ID [id number] Impression Cardiomegaly. Biventricular ICD leads in place. Thank you for letting us participate in the care of this patient. If you are a health care provider and have any questions regarding this report, please contact the number below. For patients who have questions please contact the health healthcare corporate account director that requested your imaging first. Electronically signed by: Stuart Aponte MD, [facility] ([phone]), at 06/03/2024 4:47 PM TTE: Limited echo performed by fellow supervisor production department to assess LV function. Left ventricle is mild to moderately dilated. Left ventricular ejection fraction is estimated visually at 25%. There is global dyskinesia with mid-basilar posterior-posterolateral akinesis. Right ventricle is not well seen. RV systolic function is probably normal. There is no prior echo for comparison. Inpatient Medications Scheduled Meds: furosemide 40 mg Intravenous Daily sodium chloride 0.9 % (flush) 5 mL Intravenous BID aspirin 81 mg Oral Daily carvediloL 6.25 mg Oral BID escitalopram 20 mg Oral Daily atorvastatin 80 mg Oral QPM insulin lispro 1-6 Units Subcutaneous TID AC insulin glargine (Lantus;Semglee) (100 unit/mL) subcutaneous injection 0.2 Units/kg/day Subcutaneous Daily Continuous Infusions: heparin (porcine) infusion 1,400 Units/hr (06/05/24 1219) PRN Meds:.potassium chloride ER OR potassium chloride ER, sodium chloride 0.9 % (flush), lidocaine, nitroGLYcerin, atropine, heparin (porcine) infusion AND heparin (porcine), glucose 40% oralgeL OR dextrose OR glucagon Outpatient Medications No current outpatient medications Assessment & Plan: 69 y.o. male with CAD, ischemic cardiomyopathy with HFrEF (~30% EF), prior MS with stents, DM type 2, HTN, HLD, active smoker, presented with anterior STEMI. Angiography revealed severe multivessel CAD with extensive calcification and YUE 3 flow in all vessels, without a clear culprit lesion. Currently pain-free after TNK, Plavix, ASA, and heparin, with mildly elevated LVEDP at 40 mmHg and mild volume overload. 06/05/24: Spoke with MRI who confirmed they have all the information they need regarding the DISEASE AND INSECT CONTROL BOSS-D.Plan for MRI tomorrow. Starting 40 mg IV Lasix daily. #ASCVD / STEMI: -Hold Plavix; continue ASA and heparin gtt. -Consult CT surgery for potential open revascularization. -If not a surgical candidate, consider high-risk PCI with atherectomy if appropriate. -Monitor telmetry -Follow lipid panel -TTE -Viability planning per CT surgery (Cardiac MR scheduled) #HFrEF (Ischemic Cardiomyopathy): -Monitor I&O and daily weights. -Starting Lasix 40 mg IV daily -Continue carvedilol; hold Entresto -Adjust diuretics as needed based on response -Follow TTE and CXR #T2DM: -At home patient is on 50 Units Tresiba and novolog with meals -ISS, and long-acting insulin -Hold Jardiance and metformin -Follow A1C #Depression: -Continue escitalopram. #Housekeeping: DVT PPx: None GI PPx: Diet: Carb Control diet // CHO counting level 2 Lines: PIV 06/02/24 2200 20 gauge cephalic vein (lateral side of arm), right (Active) Number of days: 2 Code status: @CODESTATUS@ Frederick Dunn MD PGY-3 Associated attestation - Melida Valdes MD - 06/05/2024 6:39 PM EDT Cardiology Attending Attestation/Addendum: Please see Frederick Dunn MD's note for details of the patient history and data. I have discussed, independently reviewed the pertinent diagnostic information, and agree with the principal findings as documented in the History, Physical Findings, Assessment and Plan of Care. The assessment and planwere formulated in discussion with me. #STEMI status post lytics #Ischemic cardiomyopathy EF 25 to 30% with multiple motion abnormalities no significant valve disease #Acute on chronic decompensated heart failure, LVEDP 40 #Diabetes #Smoking #LDL 21 -Continue heparin drip -Continue aspirin 81, atorvastatin -Continue Coreg, holding Entresto -MRI with viability on Friday -Lasix 40 IV daily 69-year-old male with history of melanoma of head s/p resection, diabetes, obesity, smoking, known CAD with moderately reduced EF of 30% who presented as transfer for STEMI. He was initially treated with a lytic and brought directly to the [facility]. Cardiac catheterization demonstrated multivessel disease with severe calcification of the arteries, but no culprit lesion. Given complexity and calcifications CABG was recommended, EDP noted to be 40. Patient underwent evaluation with CT surgery. Cardiac MRI was recommended for viability, it was postponed until Friday due to of ability. In the meantime we are working on getting operative report for ICD as requested by radiology department.Continue diuresis. Weight has been coming down 06/05/2024: Remains stable, with no recurrence of chest pain, no arrhythmia on telemetry. Weight is down and currently he appears euvolemic. ICD records were obtained and scanned in the chart, radiology updated. Will decrease dose of Lasix to maintenance of 40. Melida Valdes MD Staff Drawer In [employer] * Migel Javier RN - 06/05/2024 6:21 AM EDT Implanted device record scanned into: Chart Review-->Media-->External Cardiology-->03/25/2024. [employer] Nexvetia MRI Quad CRTD [id number] Serial #: [id number] DDD mode A + Bi/V Rates 50-130 Migel Javier RN * Dain Colón MD - 06/04/2024 11:16 AM EDT Implant Records Requested Type: DISEASE AND INSECT CONTROL BOSS-D Flow Nurse: [employer] Product: [id number] Amplia MRI MRI compatibility: Compatible for 1.5-3 T Model #: [id number] Placed at: [place], [place] Records requested for MRI: 1. Operative report 2. Implant log I requested that these records be sent to our MRI department, Dain Colón MD 06/04/24 11:58 AM * Dain Colón MD - 06/04/2024 6:57 AM EDT Images from the original note were not included. . Cardiology Progress Note Patient info: Name: George Mehta : 1955 PCP: Mauro Berumen MD PCP phone number: [phone] Date of Admission: 06/02/2024 ( Hospital Day 2 days ) Attending:Delroy Fofana MD ID: 69 y.o. male with a h/o DM type 2, HTN, HLD, current smoker (2-3 cigarettes/day), HFrEF with anICD for low EF (~30%), and CAD with prior MS x3 with JENNA placed in [place], Melanoma, PAD, presented to [facility] with 1 hour of retrosternal CP (05/13) while watching TV, found to have STEMI. Active Problems: Active Hospital Problems Diagnosis STEMI (ST elevation myocardial infarction) Resolved Hospital Problems No resolved problems to display. 24 Hour and Subjective: Yesterday: - CT surgert ordered cardiac Cts, carotid duplex bilat - Cardiac MR ordered for viability planning - TTE showed worsening EF 25-30% Overnight: - NAEON This Morning: - denies chest pain, palpitations, diaphoresis, N/V Vitals Last value Range last 24 hrs Temperature Temp: 36.4 ??C (97.6 ??F) Temp: [36.4 ??C (97.5 ??F)-36.8 ??C (98.2 ??F)] Heart Rate Heart Rate: 71 Heart Rate: [66-72] Blood Pressure BP: 120/71 BP: (108-121)/(61-76) Art Line BP BP (Arterial Line): -- MAP (NBP): [76 mmHg-87 mmHg] Respiratory Rate Resp: 25 Resp: [18-25] SpO2 SpO2: 94 % SpO2: [92 %-96 %] Oxygen Delivery Oxygen Therapy O2 Device: Nasal cannula O2 Flow Rate (L/min): 2 L/min Reason for Oxygen: Patient currently on room air Objective: Intake/Output Summary (Last 24 hours) at 06/04/2024 0657 Last data filed at 06/04/2024 0600 Gross per 24 hour Intake 1220 ml Output 3925 ml Net -2705 ml Patient Vitals for the past 168 hrs: Weight 06/04/24 0443 95 kg (209 lb 6.4 oz) 06/03/24 0636 97.1 kg (214 lb) 06/02/24 2259 102 kg (224 lb 13.9 oz) Admit wt: 102 kg Physical Exam: Gen: in bed in NAD; alert, oriented, conversant HEENT: Anicteric, EOMI intact CV: RRR, no murmurs/rubs/gallops, JV non-distended Resp: Lung sounds clear but decreased throughout, no wheezes/crackles Abd: Abdomen soft, NDNT Ext: 2+ distal pulses, no pedal edema Lines/Drains/Airways Lines: PIV 06/02/24 2200 20 gauge cephalic vein (lateral side of arm), right (Active) Site Preparation/Maintenance dressing: dry and intact 06/03/24399 Patency/Maintenance flushed without difficulty;blood return, able to obtain;alcohol impregnated capapplied 06/03/24 012 Phlebitis 0-->no symptoms 06/03/24399 Infiltration 0-->no symptoms 06/03/24399 Labs: Recent Labs 06/04/2443706/03/24212 WBC 11.45* 11.16* HGB 16.0 15.0 HCT 49.6* 47.4 PLATELET 222 217 MCV 92.7 93.1 Recent Labs 06/04/2443706/03/24212 NA 137 139 CL 97* 101 CO2 29 26 K 3.6 4.2 MAGNESIUM 0.84 0.86 PHOS -- 4.4 CALCIUM 9.0 9.8 BUN 22* 20 CREATININE 1.22 1.13 LFTs Recent Labs 06/03/24212 PROT 7.0 ALBUMIN 3.8 AST 20 ALT 12 ALKPHOS 76 BILITOT 0.4 BILIDIR <0.2 Coags Recent Labs 06/03/24212 INR 1.0 PT 11.5 PTT 105* Cardiac Enzymes Recent Labs 06/03/24212 PROBNP 1,628* Endocrine No results for input(s): TSH, CORTISOL in the last 7068 hours. Invalid input(s): [id number] Recent Labs 06/03/24 2005 06/03/24 1748 06/03/24 1114 06/03/24 0754 06/02/24 2331 POCGLU 136 191 166 195 156 Heme No results for input(s): LDH, HAPTOGLOBIN, URICACID in the last 168 hours. ABG (Arterial Blood Gas) No results found for: PHART, PO2ART, JVB2OWU, TRI4USJ Microbiology: Microbiology Results (Last 30 days) No results found for the last 720 hours. Imaging: Results for orders placed or performed during the hospital encounter of 06/02/24 XR Chest One View (Exam End: 06/03/2024 2:41 AM) Result Value WORKSTATION ID [id number] Impression No radiographically evident acute cardiopulmonary process. Thank you for letting us participate in the care of this patient. If you are a health care provider and have any questions regarding this report, please contact the number below. For patients who have questions please contact the health healthcare corporate account director that requested your imaging first. Electronically signed by: Corazon Mauro MD, [facility] ([phone]), at 06/03/2024 3:[address] Chest wo Contrast (Generic) (Exam End: 06/03/2024 4:33 PM) Result Value WORKSTATION ID [id number] Impression Cardiomegaly. Biventricular ICD leads in place. Thank you for letting us participate in the care of this patient. If you are a health care provider and have any questions regarding this report, please contact the number below. For patients who have questions please contact the health healthcare corporate account director that requested your imaging first. Electronically signed by: Stuart Aponte MD, [facility] ([phone]), at 06/03/2024 4:47 PM TTE: Limited echo performed by fellow supervisor production department to assess LV function. Left ventricle is mild to moderately dilated. Left ventricular ejection fraction is estimated visually at 25%. There is global dyskinesia with mid-basilar posterior-posterolateral akinesis. Right ventricle is not well seen. RV systolic function is probably normal. There is no prior echo for comparison. Inpatient Medications Scheduled Meds: sodium chloride 0.9 % (flush) 5 mL Intravenous BID aspirin 81 mg Oral Daily carvediloL 6.25 mg Oral BID escitalopram 20 mg Oral Daily atorvastatin 80 mg Oral QPM insulin lispro 1-6 Units Subcutaneous TID AC insulin glargine (Lantus;Semglee) (100 unit/mL) subcutaneous injection 0.2 Units/kg/day Subcutaneous Daily furosemide 40 mg Intravenous BID Continuous Infusions: heparin (porcine) infusion 1,400 Units/hr (06/04/24 0243) PRN Meds:.potassium chloride ER OR potassium chloride ER, sodium chloride 0.9 % (flush), lidocaine, nitroGLYcerin, atropine, heparin (porcine) infusion AND heparin (porcine), glucose 40% oralgeL OR dextrose OR glucagon Outpatient Medications No current outpatient medications Assessment & Plan: 69 y.o. male with CAD, ischemic cardiomyopathy with HFrEF (~30% EF), prior MS with stents, DM type 2, HTN, HLD, active smoker, presented with anterior STEMI. Angiography revealed severe multivessel CAD with extensive calcification and YUE 3 flow in all vessels, without a clear culprit lesion. Currently pain-free after TNK, Plavix, ASA, and heparin, with mildly elevated LVEDP at 40 mmHg and mild volume overload. 06/04/24: MR scheduled for this AM, but waiting on OSH records regarding pacemaker placement beforehe can be cleared for MRI. Request faxed this AM. Continues on heparin gtt, aspirin. #ASCVD / STEMI: -Hold Plavix; continue ASA and heparin gtt. -Consult CT surgery for potential open revascularization. -If not a surgical candidate, consider high-risk PCI with atherectomy if appropriate. -Monitor telmetry -Follow lipid panel -TTE -Viability planning per CT surgery (Cardiac MR scheduled) #HFrEF (Ischemic Cardiomyopathy): -Monitor I&O and daily weights. -Lasix 40 mg IV given in the seed laboratory technician; assess diuretic response, consider re-dosing -Continue carvedilol; hold Entresto -Adjust diuretics as needed based on response -Follow TTE and CXR #T2DM: -At home patient is on 50 Units Tresiba and novolog with meals -ISS, and long-acting insulin -Hold Jardiance and metformin -Follow A1C #Depression: -Continue escitalopram. #Housekeeping: DVT PPx: None GI PPx: Diet: Carb Control diet 60/60/75 CHO counting level 2 Lines: PIV 06/02/24 2200 20 gauge cephalic vein (lateral side of arm), right (Active) Number of days: 1 Code status: @YESSI@ Dain Colón MD (PGY-1) Cardiology M1-S2, #[id number] 06/04/2024, 6:57 AM Associated attestation - Melida Valdes MD - 06/04/2024 8:16 PM EDT Cardiology Attending Attestation/Addendum: Please see Dain Colón MD's note for details of the patient history and data. I have discussed, independently reviewed the pertinent diagnostic information, and agree with the principal findings as documented in the History, Physical Findings, Assessment and Plan of Care. The assessment and plan were formulated in discussion with me. 69-year-old male with history of melanoma of head s/p resection, diabetes, obesity, smoking, known CAD with moderately reduced EF of 30% who presented as transfer for STEMI. He was initially treated with a lytic and brought directly to the [facility]. Cardiac catheterization demonstrated multivessel disease with severe calcification of the arteries, but no culprit lesion. Given complexity and calcifications CABG was recommended, EDP noted to be 40. Patient underwent evaluation with CT surgery. Cardiac MRI was recommended for viability, it was postponed until Friday due to of ability. In the meantime we are working on getting operative report for ICD as requested by radiology department. Continue diuresis. Weight has been coming down # STEMI status post lytics #Ischemic cardiomyopathy EF 25 to 30% with multiple motion abnormalities no significant valve disease #Acute on chronic decompensated heart failure, LVEDP 40 #Diabetes #Smoking #LDL 21 -Continue heparin drip -Continue aspirin 81, atorvastatin -Continue Coreg -MRI with viability on Friday -Diuresis with Jovanni Valdes MD Staff Drawer In [facility] * Fatmata Mcallister PT - 06/03/2024 3:29 PM EDT Physical Therapy 06/03/24 1527 Evaluation & Treatment Document Type contact Total Minutes, Physical Therapy 0 Comment, Session Not Performed PT consult received/hx/current status reviewed. w/u ongoing following STEMI, intenventional plan TBD. Pt is independently mobile at present, will defer imminent asesssment and f.u as appropriate when POC determined (CABG vs PCI) Fatmata Mcallister PT, MSPT Pager [phone] Inpatient Physical Therapy * Marlin Gómez MD - 06/03/2024 12:00 PM EDT Post-Catheterization Progress Note Subjective: Patient denies lightheadedness, dyspnea, chest pain, palpitations, abdominal pain, groin pain, or back pain. Dressing clean and dry, no signs of infection, no bleeding from R radial access site. Objective: Vitals: Last value Range last 8 hrs Temperature Temp: 36.4 ??C (97.5 ??F) Temp: [36.4 ??C (97.5 ??F)-36.8 ??C (98.2 ??F)] Heart Rate Heart Rate: 66 Heart Rate: [66-70] Blood Pressure BP: 112/66 BP: (108-118)/(61-73) Respiratory Rate Resp: 18 Resp: [18-19] SpO2 SpO2: 96 % SpO2: [92 %-96 %] Gen: Laying in bed in NAD Ext: R radial access site without hematoma or ecchymosis. No active bleeding. Dressing clean, dry, intact. No tenderness to palpation. A/P: S/p cardiac catheterization with benign appearing R radial access site. Marlin Gómez MD Cardiology S2, Pager # [phone] 06/03/2024 * Delroy Fofana MD - 06/03/2024 7:16 AM EDT Images from the original note were not included. . Cardiology Progress Note Patient info: Name: George Mehta : 1955 PCP: Mauro Berumen MD PCP phone number: [phone] Date of Admission: 06/02/2024 ( Hospital Day 1 day ) Attending:Nuha Rojo MD ID: 69 y.o. male with a h/o DM type 2, HTN, HLD, current smoker (2-3 cigarettes/day), HFrEF with anICD for low EF (~30%), and CAD with prior MS x3 with JENNA placed in [place], Melanoma, PAD, presented to [facility] with 1 hour of retrosternal CP (05/13) while watching TV, found to have STEMI. Active Problems: Active Hospital Problems Diagnosis STEMI (ST elevation myocardial infarction) Resolved Hospital Problems No resolved problems to display. 24 Hour and Subjective: Overnight: - NAEON This Morning: - denies chest pain, palpitations, diaphoresis, N/V Vitals Last value Range last 24 hrs Temperature Temp: 36.6 ??C (97.8 ??F) Temp: [36.6 ??C (97.8 ??F)] Heart Rate Heart Rate: 70 Heart Rate: [64-71] Blood Pressure BP: 101/62 BP: (88-106)/(56-77) Art Line BP BP (Arterial Line): -- MAP (NBP): [66 mmHg-84 mmHg] Respiratory Rate Resp: 16 Resp: [15-18] SpO2 SpO2: 92 % SpO2: [92 %-94 %] Oxygen Delivery Oxygen Therapy O2 Device: None (Room air) O2 Flow Rate (L/min): 2 L/min Reason for Oxygen: Patient currently on room air Objective: Intake/Output Summary (Last 24 hours) at 06/03/2024 0716 Last data filed at 06/03/2024 0636 Gross per 24 hour Intake 300 ml Output 2200 ml Net -1900 ml Patient Vitals for the past 168 hrs: Weight 06/03/24 0636 97.1 kg (214 lb) 06/02/24 2259 102 kg (224 lb 13.9 oz) Admit wt: 102 kg Physical Exam: Gen: in bed in NAD; alert, oriented, conversant HEENT: Anicteric, EOMI intact CV: RRR, no murmurs/rubs/gallops, JV non-distended Resp: Lung sounds clear but decreased throughout, no wheezes/crackles Abd: Abdomen soft, NDNT Ext: 2+ distal pulses, no pedal edema Lines/Drains/Airways Lines: PIV 06/02/24 2200 20 gauge cephalic vein (lateral side of arm), right (Active) Site Preparation/Maintenance dressing: dry and intact 06/03/24 040 Patency/Maintenance flushed without difficulty;blood return, able to obtain;alcohol impregnated capapplied 06/03/24 0120 Phlebitis 0-->no symptoms 06/03/24 0400 Infiltration 0-->no symptoms 06/03/24 0400 Labs: Recent Labs 06/03/24212 WBC 11.16* HGB 15.0 HCT 47.4 PLATELET 217 MCV 93.1 Recent Labs 06/03/24212 NA 139 CL 101 CO2 26 K 4.2 MAGNESIUM 0.86 PHOS 4.4 CALCIUM 9.8 BUN 20 CREATININE 1.13 LFTs Recent Labs 06/03/24212 PROT 7.0 ALBUMIN 3.8 AST 20 ALT 12 ALKPHOS 76 BILITOT 0.4 BILIDIR <0.2 Coags Recent Labs 06/03/24212 INR 1.0 PT 11.5 PTT 105* Cardiac Enzymes Recent Labs 06/03/24212 PROBNP 1,628* Endocrine No results for input(s): TSH, CORTISOL in the last 7068 hours. Invalid input(s): [id number] Recent Labs 06/02/24 2331 POCGLU 156 Heme No results for input(s): LDH, HAPTOGLOBIN, URICACID in the last 168 hours. ABG (Arterial Blood Gas) No results found for: PHART, PO2ART, HVD2RRE, NEW4CIB Microbiology: Microbiology Results (Last 30 days) No results found for the last 720 hours. Imaging: Results for orders placed or performed during the hospital encounter of 06/02/24 XR Chest One View (Exam End: 06/03/2024 2:41 AM) Result Value WORKSTATION ID [id number] Impression No radiographically evident acute cardiopulmonary process. Thank you for letting us participate in the care of this patient. If you are a health care provider and have any questions regarding this report, please contact the number below. For patients who have questions please contact the health healthcare corporate account director that requested your imaging first. Electronically signed by: Corazon Mauro MD, [facility] ([phone]), at 06/03/2024 3:06 AM TTE: Limited echo performed by fellow supervisor production department to assess LV function. Left ventricle is mild to moderately dilated. Left ventricular ejection fraction is estimated visually at 25%. There is global dyskinesia with mid-basilar posterior-posterolateral akinesis. Right ventricle is not well seen. RV systolic function is probably normal. There is no prior echo for comparison. Inpatient Medications Scheduled Meds: sodium chloride 0.9 % (flush) 5 mL Intravenous BID aspirin 81 mg Oral Daily carvediloL 6.25 mg Oral BID escitalopram 20 mg Oral Daily atorvastatin 80 mg Oral QPM insulin lispro 1-6 Units Subcutaneous TID AC insulin glargine (Lantus;Semglee) (100 unit/mL) subcutaneous injection 0.2 Units/kg/day Subcutaneous Daily Continuous Infusions: heparin (porcine) infusion 1,000 Units/hr (06/03/24 0655) PRN Meds:.sodium chloride 0.9 % (flush), lidocaine, nitroGLYcerin, atropine, heparin (porcine) infusion AND heparin (porcine), glucose 40% oral geL OR dextrose OR glucagon Outpatient Medications No current outpatient medications Assessment & Plan: 69 y.o. male with CAD, ischemic cardiomyopathy with HFrEF (~30% EF), prior MS with stents, DM type 2, HTN, HLD, active smoker, presented with anterior STEMI. Angiography revealed severe multivessel CAD with extensive calcification and YUE 3 flow in all vessels, without a clear culprit lesion. Currently pain-free after TNK, Plavix, ASA, and heparin, with mildly elevated LVEDP at 40 mmHg and mild volume overload. 06/03/24: Stopped Plavix, CT surgery contacted for CABG eval. Currently only on aspirin and heparingtt. Asymptomatic. T2DM, takes almost 110u per day, placed on SSI and long acting 20u daily. #ASCVD / STEMI: -Hold Plavix; continue ASA and heparin gtt. -Consult CT surgery for potential open revascularization. -If not a surgical candidate, consider high-risk PCI with atherectomy if appropriate. -Monitor telmetry -Follow lipid panel -TTE #HFrEF (Ischemic Cardiomyopathy): -Monitor I&O and daily weights. -Lasix 40 mg IV given in the seed laboratory technician; assess diuretic response, consider re-dosing -Continue carvedilol; hold Entresto -Adjust diuretics as needed based on response -Follow TTE and CXR #T2DM: -At home patient is on 50 Units Tresiba and novolog with meals -ISS, and long-acting insulin -Hold Jardiance and metformin -Follow A1C #Depression: -Continue escitalopram. #Housekeeping: DVT PPx: None GI PPx: Diet: Carb Control diet 60/60/75 CHO counting level 2 Lines: PIV 06/02/24 2200 20 gauge cephalic vein (lateral side of arm), right (Active) Number of days: 0 Code status: @CODESTATUS@ Dain Colón MD (PGY-1) Cardiology M1-S2, #[id number] 06/03/2024, 7:16 AM Cardiology Staff - Progress Note Addendum This patient was seen and examined on morning rounds with the S2 inpatient team. I agree with the findings and plan of care per Dain Colón MD (biomedical engineering aide). Please refer to his note above for details. Very pleasant 69 year old male but he is obese, diabetic, and he is a SMOKER with known prior CAD and moderately reduced LVEF (30%). He has a pacer. History of surgical resection of melanoma on his head. The patient was transferred overnight to [facility] as a STEMI. He was treated initially with a lytic (TNK) and brought directly to the seed laboratory technician. The cath demonstrated 3VD with diffuse disease and extensive calcification of his arteries. Anatomy was not considered favorable for PCI. Consideration of CABGwas recommended. EDP noted to be 40. Initial ECG: NSR with borderline NADER in anterior leads (possible v-pacing) Labs: -hgb 15 -Plt 217 -BUN/Cr 20/1.13 -Donnie 289, 266; BNP 1628 -LDL 21 Echo: LVEF 25-30% with multiple regional WMA, no significant valve disease A/P: #STEMI, no culprit vessel / no PCI, but was given TNK, has 3VD #acute on chronic decompensated systolic heart failure #diabetes #smoking We have started to discuss the case with cardiac surgery (Dr Hill). In the meantime, the patient is stable post cath with no ongoing chest pain. Stable HR and BP on tele unit. Other details as above. documented in this encounter H&P Notes * Roel Zheng DO - 06/13/2024 10:58 AM EST ICU Blue (#[id number]) H&P Patient info: Name: George Mehta : 1955 PCP: Mauro Berumen MD PCP phone number: [phone] Date of Admission: 06/02/2024 ( Hospital Day 11 days ) Attending:Haja Byrnes MD ID: George Mehta is a 69 y.o. male with a h/o DM type 2, HTN, HLD, current smoker (2-3 cigarettes/day), HFrEF with an ICD for low EF (~30%), and CAD with prior MS x3 with JENNA placed in [place], Melanoma, PAD, presented to [facility] with 1 hour of retrosternal CP (05/13) while watching TV, foundto have STEMI. HPI: Shahnaz Scanlon H&P 06/02 69 y.o. male with a h/o DM type 2, HTN, HLD, current smoker (2-3 cigarettes/day), HFrEF with an ICD for low EF (~30%), and CAD with prior MS x3 with JENNA placed in [place], Melanoma, PAD, presented to [facility] with 1 hour of retrosternal CP (05/13) while watching TV. CP was non-radiating, not asso ciated with diaphoresis, nausea, or SOB. Denies orthopnea, MARTÍNEZ, palpitations, or LE edema. ECG showed findings consistent with anterior STEMI. He received TNK and was transferred for PCI. Coronary angiography showed a small, non-dominant RCA with rhtp-xw-gxhrluay disease and a dominant,heavily calcified left system with prior stents in the LAD and OM. The LM bifurcates into the LAD and LCX, both heavily calcified. The proximal LCX has a 75% calcified, aneurysmal lesion, and an 80% calcified lesion distally before a large OM2. OM1 is a JOB COST ESTIMATOR with in-stent restenosis, filling retrograde via collaterals. The LAD is heavily calcified throughout. YUE 3 flow was noted in all vessels without an obvious culprit lesion. IVUS showed extensive 360-degree calcification, limiting catheter advancement in the proximal LCX and LAD. No stent was placed. Pt is currently pain-free after TNK, Plavix, ASA, and heparin. LVEDP measured at 40 mmHg, and 40 mg Lasix was administered in the seed laboratory technician. Cardiac surgery was consulted and plan for CABG 06/14 preceded by IABP placement on 06/13. Review of Systems (positives in bold) General: chills, fatigue, fever or night sweats Eye: blurry vision, double vision, loss of vision or photophobia HENT: headaches, sore throat or vertigo Heme/Lymph: Bleeding/bruising, blood clots, jaundice, pallor or swollen lymph nodes Resp: cough, hemoptysis, orthopnea, shortness of breath or wheezing Cardio: chest pain, dyspnea on exertion, edema, loss of consciousness, palpitations, paroxysmal nocturnal dyspnea or shortness of breath Gastro: abdominal pain, blood in stools, constipation, diarrhea, heartburn, hematemesis, melena or nausea/vomiting : dysuria, hematuria or urinary frequency/urgency MSK: joint pain, joint stiffness, joint swelling, muscle pain or muscular weakness Neuro:dizziness, gait disturbance, impaired coordination/balance, memory loss, numbness/tingling, seizures, speech problems, tremors or visual changes Derm: lumps or rash PMH No past medical history on file. PSH No past surgical history on file. Allergies: No Known Allergies Family History No family history on file. Social History Social History Socioeconomic History Marital status: Declines to List Spouse name: Not on file Number of children: Not on file Years of education: Not on file Highest education level: Not on file Occupational History Not on file Tobacco Use Smoking status: Every Day Current packs/day: 0.25 Types: Cigarettes Smokeless tobacco: Never Substance and Sexual Activity Alcohol use: Not on file Drug use: Not on file Sexual activity: Not on file Other Topics Concern Not on file Social History Narrative Not on file Social Determinants of Health Financial Resource Strain: Not on file Food Insecurity: No Food Insecurity (06/03/2024) Hunger Vital Sign Worried About Running Out of Food in the Last Year: Never true Ran Out of Food in the Last Year: Never true Transportation Needs: No Transportation Needs (06/03/2024) PRAPARE - Transportation Lack of Transportation (Medical): No Lack of Transportation (Non-Medical): No Physical Activity: Not on file Intimate Partner Violence: Not At Risk (06/03/2024) IPV Inpatient Questions Prevent Contact with Others: no Feels Threatened by Someone: no Feels Unsafe at Home: no Physical Signs of Abuse Present: no Housing Stability: Low Risk (06/03/2024) Housing Stability Vital Sign Unable to Pay for Housing in the Last Year: No Number of Times Moved in the Last Year: 1 Homeless in the Last Year: No Meds mupirocin 1 each Topical (Top) BID insulin glargine (Lantus;Semglee) (100 unit/mL) subcutaneous injection 40 Units Subcutaneous Daily insulin lispro 0-15 Units Subcutaneous TID WC erythromycin Right Eye 4 Times Daily insulin lispro 1-6 Units Subcutaneous Q4H JANKI furosemide 40 mg Intravenous Daily sodium chloride 0.9 % (flush) 5 mL Intravenous BID aspirin 81 mg Oral Daily carvediloL 6.25 mg Oral BID escitalopram 20 mg Oral Daily atorvastatin 80 mg Oral QPM fentaNYL (PF), midazolam (PF), lidocaine, midazolam, atropine, fentaNYL (PF), insulin lispro, glucose 40% oral geL OR dextrose OR glucagon, potassium chloride ER OR potassium chloride ER,sodium chloride 0.9 % (flush), lidocaine, nitroGLYcerin, heparin (porcine) infusion AND heparin(porcine) Vasoactive & Sedating Medications: Infusions: Continuous Infusions: heparin (pf) (porcine) 5 mL/hr (06/13/24 1015) heparin (pf) (porcine) sodium chloride 0.9% heparin (porcine) infusion 1,400 Units/hr (06/13/24 1052) Objective: Vitals Last value Range last 24 hrs Temperature Temp: 36.8 ??C (98.2 ??F) Temp: [36.4 ??C (97.5 ??F)-36.8 ??C (98.2 ??F)] Heart Rate Heart Rate: 57 Heart Rate: [57-72] Blood Pressure BP: 138/86 BP: (99-143)/(66-86) Art Line BP BP (Arterial Line): -- MAP (NBP): [78 mmHg-98 mmHg] Respiratory Rate Resp: 13 Resp: [13-18] SpO2 SpO2: 98 % SpO2: [92 %-98 %] Oxygen Delivery Oxygen Therapy O2 Device: None (Room air) O2 Flow Rate (L/min): 2 L/min Reason for Oxygen: Patient currently on room air Ventilator Settings: Mode: , SET RR: TV: PEEP: FiO2: VARIABLES PATIENT RR: PIP: Pplateau: SpO2: OUTPUT Resp: 13 SpO2: 98 % ABG (Arterial Blood Gas) No results for input(s): PHART, LGV9MKO, PO2ART, KPE1AUY, LACTATEVEN, TIS9CXL, PFRATIOART2 in the last 168 hours. VBG (Venous Blood Gas) Recent Labs 06/10/24 1742 PHVEN 7.34 PO2VEN 24 FDM9REZ 27.4 Mixed Venous Sat No results for input(s): C8LUNT2 in the last 168 hours. Intake/Output Summary (Last 24 hours) at 06/13/2024 1058 Last data filed at 06/13/2024 1005 Gross per 24 hour Intake 300 ml Output 3525 ml Net -3225 ml Patient Vitals for the past 168 hrs: Weight 06/13/24 0325 94 kg (207 lb 3.7 oz) 06/12/24 0300 93.8 kg (206 lb 11.2 oz) 06/11/24 034 94.5 kg (208 lb 6.4 oz) 06/10/24 0415 93.5 kg (206 lb 3.2 oz) 06/09/24 0438 94 kg (207 lb 3.2 oz) 06/08/24 0346 94 kg (207 lb 3.2 oz) 06/07/24 0418 94.3 kg (207 lb 14.3 oz) Admit wt: 102 kg Physical Exam: Gen: in bed in NAD CV: RRR, no murmurs/rubs/gallops, IABP sounds noted Resp: CTAB anterior Abd: normal bowel sounds, soft, non-tender to palpation, no rebound or guarding Ext: 2+ distal pulses Neuro: no focal deficits noted Psych: cooperative. Lines/Drains/Airways Lines: PIV 06/02/24 2200 20 gauge cephalic vein (lateral side of arm), right (Active) Indication/Daily Review of Necessity medication therapy intermittent 06/13/24822 Site Preparation/Maintenance dressing: dry and intact 06/13/24 08 Securement catheter stabilization device, secured with 06/13/24822 Patency/Maintenance infusing 06/13/24822 Phlebitis 0-->no symptoms 06/13/24939 Infiltration 0-->no symptoms 06/13/24939 Site Signs/Symptoms no redness;no swelling;no pain;no warmth;no palpable cord;no streak formation 06/09/24 08 LDA Cath/EP Sheath 06/13/24 Proximal;Right;Anterior Femoral (Active) Site Assessment Clean;Dry;Intact 06/13/24 0940 Intra-Aortic Balloon Pump 06/13/24 0937 (Active) Balloon Refill refilled automatically 06/13/24 1000 Operating Mode automatic 06/13/24 1000 Balloon Assist Ratio 1:1 06/13/24 1000 Trigger internal 06/13/24 1000 Helium 1/4 full 06/13/24 1000 Assisted Systole (mm Hg) 98 06/13/24 1000 Assisted Diastole (mm Hg) 48 06/13/24 1000 Assisted Mean (mm Hg) 100 06/13/24 1000 Augmentation (mm Hg) 192 06/13/24 1000 Unassisted Systole 114 06/13/24 1000 Unassisted Diastole (mm Hg) 60 06/13/24 1000 Dressing dressing dry and intact 06/13/24 1000 Labs: Recent Labs 06/13/24 0226 06/12/24 0303 06/11/24 0213 06/10/24 0155 06/09/24 0212 WBC 9.98* 9.69* 9.91* 9.00 9.80* HGB 15.3 15.2 15.3 14.9 15.5 HCT 47.1 46.6 47.5 46.4 47.4 PLATELET 194 194 184 191 205 MCV 92.2 92.3 92.6 92.2 91.5 Recent Labs 06/13/24 0748 06/13/24 0226 06/12/24 1419 06/12/24 0303 06/11/24 0213 06/10/24 0155 06/09/24 0825 06/09/24 0212 NA -- 136 -- 138 134* 138 -- 136 CL -- 99 -- 98 96* 100 -- 98 CO2 -- 27 -- 29 28 25 -- 27 K 4.5 3.9 4.5 3.8 4.1 4.1 < > 3.9 MAGNESIUM -- 0.78 -- 0.79 0.83 0.83 -- 0.83 CALCIUM -- 9.7 -- 9.5 9.4 9.5 -- 9.7 BUN -- 21* -- 23* 24* 24* -- 24* CREATININE -- 1.07 -- 1.15 1.06 1.06 -- 1.11 < > = values in this interval not displayed. LFTs No results for input(s): PROT, ALBUMIN, AST, ALT, ALKPHOS, BILITOT, BILIDIR in the last 168 hours. Coags No results for input(s): INR, PT, PTT, FIBRINOGEN, DDIMER in the last 168 hours. Invalid input(s): THROMBIN TIME Cardiac Enzymes No results for input(s): CK, TROPONINT, PROBNP in the last 168 hours. Endocrine No results for input(s): TSH, CORTISOL in the last 7068 hours. Invalid input(s): [id number] Recent Labs 06/13/24 0741 06/13/24 0325 06/12/24 2353 06/12/24 1932 06/12/24 1541 06/12/24 1121 06/12/24 0800 06/12/24 0425 06/11/24 2356 06/11/24 2025 06/11/24 1624 06/11/24 1108 POCGLU 126 99 141 158 113 207* 169 132 135 210* 81 233* Heme No results for input(s): LDH, HAPTOGLOBIN, URICACID in the last 168 hours. ABG (Arterial Blood Gas) No results for input(s): PHART, KYP5WKZ, PO2ART, VMS2CBW, LACTATEVEN, QUI9THT, PFRATIOART2 in the last 168 hours. VBG (Venous Blood Gas) Recent Labs 06/10/24 1742 PHVEN 7.34 PO2VEN 24 WJI6YKB 27.4 Mixed Venous Sat No results for input(s): U7IKBM7 in the last 168 hours. Microbiology: Microbiology Results (Last 30 days) No results found for the last 720 hours. Assessment & Plan: George Mehta is a 69 y.o. male with CAD, ischemic cardiomyopathy with HFrEF (~30% EF), prior MS with stents, DM type 2, HTN, HLD, active smoker, presented with anterior STEMI. Angiography revealedsevere multivessel CAD with extensive calcification and YUE 3 flow in all vessels, without a clearculprit lesion. Currently pain-free after TNK, Plavix, ASA, and heparin, with mildly elevated LVEDPat 40 mmHg and mild volume overload. Admitted to [facility] for clarence-operative management following IABP placement. Planned for CABG 06/14. 06/13/2024 Patient now s/p IABP placement. Procedure occurred without complication. IABP set to 1:1. Will continue with heparin for ASCVD. Plan for CABG 06/14. Patient NPO at [place]. #ASCVD / STEMI: -Holding Plavix; continue ASA and heparin gtt. -Monitor telemetry - S/p IABP 06/13 #HFrEF (Ischemic Cardiomyopathy): -Monitor I&O and daily weights. -Continue Lasix 40 mg IV daily - daily standing weights -Continue carvedilol; hold Entresto -Adjust diuretics as needed based on response #T2DM: -At home patient is on 50 Units Tresiba and novolog with meals -ISS, and long-acting insulin - Added meal- and snack-associated insulin -Hold Jardiance and metformin -Follow A1C -Consult to diabetes management team for optimization prior to CABG - increase glargine to 40u daily today #R eye conjunctivitis, improving - erythromycin ointment - CTM #Depression: -Continue home escitalopram ICU Checklist Sedation/Analgesia: None Glycemic control: ISS Hyperoxia: titrate to lowest possible support to target SpO2 Diet/ feeding: NPO diet (Give Meds) Daily Healthy Menu Choices/Cardiac diet ([facility]-Diet) DVT Prophylaxis: SCD GI Prophylaxis: None Dispo: TBD Code Status: Attempt Cardiopulmonary Resuscitation - Inpatient Roel Zheng DO Internal Medicine, PGY-1 [facility] 06/13/24 10:58 AM * Rebeca Prado MD - 06/13/2024 5:56 AM EST Pre-Cardiac Catheterization H&P 06/13/24 George Mehta is a 69 y.o. male referred for planned IABP prior to CABG. Mr. Mehta has a hx of HTN, HLD, DM2, current TUD (abstinent since admission), ASCVD with multipleprior MS and PCIs, ICM/HFrEF LVEF 30% (all territories viable on cMRI) and PAD who was admitted 06/02/24 with a STEMI after receiving lytics locally but re-perfused and cath showed severe recurrent multivessel disease without obvious culprit now pending planned CABG, likely Friday. Continuing medical management in interim. In discussion w/ CTS, reduced LVEF with increased risk so current plan is to place IABP in anticipation of OR Friday. Outpatient Medications Marked as Taking for the 06/02/24 encounter (Hospital Encounter) Medication Sig Dispense Refill metFORMIN (Fortamet) 1,000 mg ER 24 hr [...] tablet Take 25 mg by mouth daily. glipiZIDE XL (Glucotrol XL) 5 mg ER 24 hr tablet Take 5 mg by mouth daily. INSULIN DEGLUDEC SUBQ Inject 50 Units subcutaneously daily. insulin aspart U-100 (NovoLOG Flexpen U-100 Insulin) 100 unit/mL (3 mL) Insulin Pen Inject 20 Unitssubcutaneously 3 times daily (with meals). BP 102/68 (BP Location (NBP): Left arm, Patient Position: Lying) Pulse 71 Temp 36.5 ??C (97.7 ??F) (Oral) Resp 18 Ht 167.6 cm (5' 6) Wt 94 kg (207 lb 3.7 oz) SpO2 94% BMI 33.45 kg/m?? Gen: Alert, sleepy, comfortable appearing, older male, obese, resting comfortably in bed, in NAD HEENT: EOMI, MMM Neck: Supple, no JVD CV: RRR, no M/R/G appreciated, normal S1/S2, PMI not palpated Resp: CTAB, no W/R/R Ext: No edema, clubbing, or cyanosis. Warm and well perfused. Neuro: CN grossly intact, moving all extremities Psych: Appropriate affect Labs reviewed and notable for: Lab Results Component Value Date WBC 9.98 (H) 06/13/2024 HGB 15.3 06/13/2024 HCT 47.1 06/13/2024 MCV 92.2 06/13/2024 PLATELET 194 06/13/2024 Lab Results Component Value Date CREATININE 1.07 06/13/2024 BUN 21 (H) 06/13/2024 NA 136 06/13/2024 K 3.9 06/13/2024 CL 99 06/13/2024 CO2 27 06/13/2024 Lab Results Component Value Date INR 1.0 06/03/2024 A/P 69 y.o. male here for cardiac catheterization for planned IABP prior to CABG. - proceed as planned - consent signed - FULL code ASA: 3: Patient with severe systemic disease Mallampati: III: only the base of the uvula can be seen I have personally discussed the procedure, including benefits and risks, with the patient who agrees to proceed. The indications for the catheterization, the expected benefits, and the possible riskswere reviewed in detail with the patient. The potential for , heart attack, stroke, kidney failure, bleeding, allergic reaction, vascular complications and infection were reviewed. The possibility of stenting and other percutaneous interventions, with associated risk, was reviewed. The potential need for emergent coronary artery bypass surgery was reviewed. Alternatives were discussed and the patient's questions were answered in full. Following this discussion, the patient consented to theprocedure and signed a form attesting to this, which is in the chart Rebeca Prado MD In School Suspension Coordinator [id number] * Shahnaz Scanlon MD - 06/02/2024 10:38 PM EDT Cardiology Admission H&P Patient Name: George Mehta Date of : 1955 Age: 69 y.o. Hospital Admit Date: 06/02/2024 Inpatient Attending: Nuha Rojo MD PCP: No primary care provider on file. Presenting Diagnosis/Chief Complaint: STEMI/Chest pain Active Problem List: Active Hospital Problems Diagnosis STEMI (ST elevation myocardial infarction) Resolved Hospital Problems No resolved problems to display. History of Present Illness: 69 y.o. male with a h/o DM type 2, HTN, HLD, current smoker (2-3 cigarettes/day), HFrEF with an ICDfor low EF (~30%), and CAD with prior MS x3 with JENNA placed in [place], Melanoma, PAD, presented to [facility] with 1 hour of retrosternal CP (05/13) while watching TV. CP was non-radiating, not assoc iated with diaphoresis, nausea, or SOB. Denies orthopnea, MARTÍNEZ, palpitations, or LE edema. ECG showed findings consistent with anterior STEMI. He received TNK and was transferred for PCI. Coronary angiography showed a small, non-dominant RCA with [id number] disease and a dominant,heavily calcified left system with prior stents in the LAD and OM. The LM bifurcates into the LAD and LCX, both heavily calcified. The proximal LCX has a 75% calcified, aneurysmal lesion, and an 80% calcified lesion distally before a large OM2. OM1 is a JOB COST ESTIMATOR with in-stent restenosis, filling retrograde via collaterals. The LAD is heavily calcified throughout. YUE 3 flow was noted in all vessels without an obvious culprit lesion. IVUS showed extensive 360-degree calcification, limiting catheter advancement in the proximal LCX and LAD. No stent was placed. Pt is currently pain-free after TNK, Plavix, ASA, and heparin. LVEDP measured at 40 mmHg, and 40 mg Lasix was administered in the seed laboratory technician. Past Medical History: As per HPI Significant Family History: No family history on file. Social History: Social History Socioeconomic History Marital status: Not on file Spouse name: Not on file Number of children: Not on file Years of education: Not on file Highest education level: Not on file Occupational History Not on file Tobacco Use Smoking status: Every Day Current packs/day: 0.25 Types: Cigarettes Smokeless tobacco: Never Substance and Sexual Activity Alcohol use: Not on file Drug use: Not on file Sexual activity: Not on file Other Topics Concern Not on file Social History Narrative Not on file Social Determinants of Health Financial Resource Strain: Not on file Food Insecurity: Not on file Transportation Needs: Not on file Physical Activity: Not on file Intimate Partner Violence: Not At Risk (06/03/2024) DH IPV Inpatient Questions Prevent Contact with Others: no Feels Threatened by Someone: no Feels Unsafe at Home: no Physical Signs of Abuse Present: no Housing Stability: Not on file REVIEW OF SYSTEMS: As per HPI Medications: No medications prior to admission. Allergies: No Known Allergies PHYSICAL EXAM: Last set of vital signs: BP 101/62 (BP Location (NBP): Left arm, Patient Position: Lying) Pulse 70 Temp 36.6 ??C (97.8 ??F) (Oral) Resp 16 Ht 167.6 cm (5' 6) Wt 102 kg (224 lb 13.9 oz) SpO2 92% BMI 36.29 kg/m?? Physical Exam Constitutional: Appearance: Normal appearance. HENT: Nose: Nose normal. Mouth/Throat: Mouth: Mucous membranes are moist. Eyes: Extraocular Movements: Extraocular movements intact. Pupils: Pupils are equal, round, and reactive to light. Cardiovascular: Rate and Rhythm: Normal rate and regular rhythm. Heart sounds: No murmur heard. Pulmonary: Effort: No respiratory distress. Breath sounds: Rales (decrease breath sound bibasilar) present. No wheezing. Abdominal: General: There is no distension. Palpations: Abdomen is soft. Tenderness: There is no abdominal tenderness. Musculoskeletal: General: Normal range of motion. Cervical back: Normal range of motion and neck supple. Right lower leg: No edema. Left lower leg: No edema. Skin: General: Skin is warm and dry. Neurological: General: No focal deficit present. Mental Status: He is alert and oriented to person, place, and time. Psychiatric: Mood and Affect: Mood normal. Behavior: Behavior normal. Diagnostics: [facility] 06/02/2024 Coronary angiography revealed small non dominant RCA with mild to moderate grade disease. The left coronary system was dominant, and heavily calcified with prior stents in the LAD and OM. Recommendations: surgical consult for possible open revascularization; if not a surgical candidate,could potentially be considered for high risk PCI with atherectomy if in the best interest of the patient EKG 06/02/2024 EKG Interpretation(choose all that apply): Anterior ST elevation Meets Strict STEMI ECG Criteria LABS: Recent Results (from the past 24 hour(s)) POC, GLUCOSE Result Value Ref Range Glucometer, POC 156 65 - 199 mg/dL CBC (with Diff) Result Value Ref Range White Blood Cell 11.16 (H) 4.00 - 9.50 x10(3)/mcL Red Blood Cell 5.09 4.58 - 5.54 x10(6)/mcL Hemoglobin 15.0 13.7 - 16.5 g/dL Hematocrit 47.4 40.5 - 48.5 % Mean Cell Volume 93.1 82.9 - 93.1 fL Mean Cell Hemoglobin 29.5 27.5 - 32.1 pg Mean Cell Hemoglobin Concentration 31.6 (L) 32.0 - 35.7 g/dL Platelet 217 145 - 357 x10(3)/mcL Mean Platelet Volume 9.5 7.6 - 12.9 fL RDW Standard Deviation 49.0 (H) 36.0 - 45.0 fL RDW coefficient of variation 14.1 (H) 11.4 - 13.8 % NRBC% auto 0.0 % NRBC Absolute <0.01 <0.01 x10(3)/mcL Neutrophil % 58.4 % Neutrophil Absolute (ANC) - Automated 6.51 (H) 1.70 - 6.10 x10(3)/mcL Lymph % 29.9 % Lymph Absolute 3.34 (H) 0.90 - 3.20 x10(3)/mcL Monocyte % 8.1 % Monocyte Absolute 0.90 0.30 - 0.90 x10(3)/mcL Eos % 2.4 % Eos Absolute 0.27 0.00 - 0.40 x10(3)/mcL Basophil % 0.8 % Baso Absolute 0.09 0.00 - 0.10 x10(3)/mcL Immature Gran % 0.4 % Immature Gran Absolute 0.05 (H) 0.00 - 0.04 x10(3)/mcL Basic Metabolic Panel Result Value Ref Range Glucose 126 65 - 199 mg/dL Blood Urea Nitrogen 20 10 - 20 mg/dL Creatinine 1.13 0.80 - 1.50 mg/dL Sodium 139 135 - 145 mMol/L Potassium 4.2 3.5 - 5.0 mMol/L Chloride 101 98 - 107 mMol/L Carbon Dioxide 26 22 - 31 mMol/L Anion Gap 12 5 - 15 mMol/L Calcium 9.8 8.5 - 10.5 mg/dL Est Glomerular Filtration Rate - Male 71 mL/min/1.73 m?? Magnesium Result Value Ref Range Magnesium 0.86 0.69 - 1.07 mMol/L Phosphorus Result Value Ref Range Phosphorus 4.4 2.5 - 4.5 mg/dL pro-Brain Natriuretic Peptide Result Value Ref Range NT-proBNP 1,628 (H) <=124 pg/mL Hepatic Function Panel Result Value Ref Range Albumin 3.8 3.2 - 5.2 g/dL Aspartate Aminotransferase 20 <=39 unit/L Alanine Aminotransferase 12 0 - 55 unit/L Alkaline Phosphatase 76 40 - 130 unit/L Bilirubin, Total 0.4 <=1.3 mg/dL Bilirubin, Direct <0.2 0.0 - 0.3 mg/dL Protein, Total 7.0 6.1 - 8.0 g/dL Prothrombin Time Result Value Ref Range Prothrombin Time 11.5 9.4 - 12.5 sec International Normalization Ratio 1.0 <=4.9 APTT Result Value Ref Range Partial Thromboplastin Time 105 (CRIT) 25 - 37 sec Lipid Panel (Reflex Direct LDL) Result Value Ref Range Cholesterol, Total 76 mg/dL Triglyceride 75 mg/dL HDL Cholesterol 39 mg/dL LDL Cholesterol 21 mg/dL Non-HDL Cholesterol 37 mg/dL Troponin-T, High Sensitivity Result Value Ref Range Troponin-T, High Sensitivity Initial 208 (H) <=22 ng/L Heparin (unfractionated) Level Result Value Ref Range UF Heparin 0.56 IU/mL Troponin-T, High Sensitivity 1 Hour Result Value Ref Range Troponin-T, High Sensitivity 218 (H) <=22 ng/L Troponin-T, HS 1 hr delta 10 ng/L Troponin-T, High Sensitivity 3 Hour Result Value Ref Range Troponin-T, High Sensitivity 254 (H) <=22 ng/L Troponin-T, HS 3 hr delta 46 ng/L ASSESSMENT and TREATMENT PLAN: 69 y.o. male with CAD, ischemic cardiomyopathy with HFrEF (~30% EF), prior MS with stents, DM type 2, HTN, HLD, active smoker, presented with anterior STEMI. Angiography revealed severe multivessel CAD with extensive calcification and YUE 3 flow in all vessels, without a clear culprit lesion. Currently pain-free after TNK, Plavix, ASA, and heparin, with mildly elevated LVEDP at 40 mmHg and mild volume overload. #ASCVD / STEMI: -Hold Plavix; continue ASA and heparin gtt. -Consult CT surgery for potential open revascularization. -If not a surgical candidate, consider high-risk PCI with atherectomy if appropriate. -Monitor telmetry -Follow lipid panel -Follow TTE #HFrEF (Ischemic Cardiomyopathy): -Monitor I&O and daily weights. -Lasix 40 mg IV given in the seed laboratory technician; assess diuretic response. -Continue carvedilol; hold Entresto Adjust diuretics as needed based on response -Follow TTE and CXR #T2DM: At home patient is on 50 Units Tresiba and novolog with meals ISS, and long-acting insulin Hold Jardiance and metformin Follow A1C #Depression: Continue escitalopram. Monitoring and Supportive Care: Close monitoring daily labs, renal function, and electrolytes, especially with diuretics. Provider: Shahnaz Scanlon MD Provider #: [id number] 06/03/2024 documented in this encounter Miscellaneous Notes * Care Management Discharge - Vargas Delong RN - 06/21/2024 9:36 AM EST CARE MANAGEMENT FINAL DISCHARGE NOTE Chart reviewed, care reviewed with primary team and at interdisciplinary rounds. Patient is medically ready for discharge to home. Needs for Transition of Care: per discharge instructions Plan for discharge is: Home w/ Services Outpatient Agency/Support Group Needs: Homecare agency Home Health Services: Medication checks, Registered Nurse, Physical Therapy Agency Referrals & Follow-up Care: Contact information for follow-up [facility] [address] [facility] [id number] Cardiac Rehab, [address] [facility] [id number] JAMIE GRAMAJO confirmed with [facility] that they will see the patient for start of care within 24-48 hours of discharge. Transportation: family or friend will provide Wheelchair van/Ambulance? No Functional status prior to admission: Independent Home Environment: Others in the home: spouse, pet(s) (Pt lives w/ his , Mandy, and 2 dogs Zuleika & Kaley). Current Living Arrangements: home/apartment/condo. Accessibility Concerns:1st floor apt. No NADER. No concerns.. Current Functional Ability: Independent *Independent of all ADLs/iADLs at baseline, ambulates without assistive devices DME used at home: none, other (see comments) (Pt states he has grab bars and a shower chair in the bathroom) DME Needed at Discharge: N/A Patient is insured through: Primary Insurance: [employer] MANAGED MEDICARE Payor: AARP MANAGED MEDICARE / Plan: AARP RPPO MANAGED MEDICARE COMPLETE / Product Type: *No Product type* / Secondary Insurance: N/A Prescription Coverage: Yes This plan was formulated with input from patient and team. All are in agreement with plan. * Plan of Care - Michelle Orozco RN - 06/20/2024 6:09 PM EST OUTCOME EVALUATION NOTE: OUTCOME SUMMARY: No CP or SOB. Ventricular paced on tele, see scanned docs. On RA. Patient on pathway of 6 days postop CABGx3. Tylenol administered for incisional pain, see MAR. Educated on sternal precautions, patient demonstrated understanding. Switched to PO lasix. D/C planning for tomorrow. Common items and call jones within reach. PLAN MOVING FORWARD: [place] D/C planning INDIVIDUALIZED FALL PREVENTION INTERVENTIONS: Assistance [level of assistance required for transfers and ambulation]: independent CPG GOAL OUTCOME EVALUATION: Problem: Adult Inpatient Plan of Care Goal: Plan of Care Review 06/20/2024 1028 by Michelle Orozco RN Outcome: Ongoing (Interventions Implemented as Appropriate) 06/20/2024 1028 by Michelle Orozco RN Outcome: Ongoing (Interventions Implemented as Appropriate) Goal: Patient-Specific Goal (Individualized) 06/20/2024 1028 by Michelle Orozco RN Outcome: Ongoing (Interventions Implemented as Appropriate) 06/20/2024 1028 by Michelle Orozco RN Outcome: Ongoing (Interventions Implemented as Appropriate) Goal: Absence of Hospital-Acquired Illness or Injury 06/20/2024 1028 by Michelle Orozco RN Outcome: Ongoing (Interventions Implemented as Appropriate) 06/20/2024 1028 by Michelle Orozco RN Outcome: Ongoing (Interventions Implemented as Appropriate) Goal: Optimal Comfort and Wellbeing 06/20/2024 1028 by Michelle Orozco RN Outcome: Ongoing (Interventions Implemented as Appropriate) 06/20/2024 1028 by Michelle Orozco RN Outcome: Ongoing (Interventions Implemented as Appropriate) Goal: Readiness for Transition of Care 06/20/2024 1028 by Michelle Orozco RN Outcome: Ongoing (Interventions Implemented as Appropriate) 06/20/2024 1028 by Michelle Orozco RN Outcome: Ongoing (Interventions Implemented as Appropriate) Problem: Activity Intolerance (Cardiovascular Surgery) Goal: Improved Activity Tolerance 06/20/2024 1028 by Michelle Orozco RN Outcome: Ongoing (Interventions Implemented as Appropriate) 06/20/2024 1028 by Michelle Orozco RN Outcome: Ongoing (Interventions Implemented as Appropriate) Problem: Adjustment to Surgery (Cardiovascular Surgery) Goal: Optimal Coping with Heart Surgery 06/20/2024 1028 by Michelle Orozco RN Outcome: Ongoing (Interventions Implemented as Appropriate) 06/20/2024 1028 by Michelle Orozco RN Outcome: Ongoing (Interventions Implemented as Appropriate) Problem: Bleeding (Cardiovascular Surgery) Goal: Absence of Bleeding 06/20/2024 1028 by Michelle Orozco RN Outcome: Ongoing (Interventions Implemented as Appropriate) 06/20/2024 1028 by Michelle Orozco RN Outcome: Ongoing (Interventions Implemented as Appropriate) Problem: Bowel Elimination Impaired (Cardiovascular Surgery) Goal: Effective Bowel Elimination 06/20/2024 1028 by Michelle Orozco RN Outcome: Ongoing (Interventions Implemented as Appropriate) 06/20/2024 1028 by Michelle Orozco RN Outcome: Ongoing (Interventions Implemented as Appropriate) Problem: Cardiac Function Impaired (Cardiovascular Surgery) Goal: Effective Cardiac Function 06/20/2024 1028 by Michelle Orozco RN Outcome: Ongoing (Interventions Implemented as Appropriate) 06/20/2024 1028 by Michelle Orozco RN Outcome: Ongoing (Interventions Implemented as Appropriate) Problem: Cerebral Tissue Perfusion Risk (Cardiovascular Surgery) Goal: Effective Cerebral Perfusion 06/20/2024 1028 by Michelle Orozco RN Outcome: Ongoing (Interventions Implemented as Appropriate) 06/20/2024 1028 by Michelle Orozco RN Outcome: Ongoing (Interventions Implemented as Appropriate) Problem: Fluid Imbalance (Cardiovascular Surgery) Goal: Fluid Balance 06/20/2024 1028 by Michelle Orozco RN Outcome: Ongoing (Interventions Implemented as Appropriate) 06/20/2024 1028 by Michelle Orozco RN Outcome: Ongoing (Interventions Implemented as Appropriate) Problem: Infection (Cardiovascular Surgery) Goal: Absence of Infection Signs and Symptoms 06/20/2024 1028 by Michelle Orozco RN Outcome: Ongoing (Interventions Implemented as Appropriate) 06/20/2024 1028 by Michelle Orozco RN Outcome: Ongoing (Interventions Implemented as Appropriate) Problem: Ongoing Anesthesia Effects (Cardiovascular Surgery) Goal: Anesthesia/Sedation Recovery 06/20/2024 1028 by Michelle Orozco RN Outcome: Ongoing (Interventions Implemented as Appropriate) 06/20/2024 1028 by Michelle Orozco RN Outcome: Ongoing (Interventions Implemented as Appropriate) Problem: Pain (Cardiovascular Surgery) Goal: Acceptable Pain Control 06/20/2024 1028 by Michelle Orozco RN Outcome: Ongoing (Interventions Implemented as Appropriate) 06/20/2024 1028 by Michelle Orozco RN Outcome: Ongoing (Interventions Implemented as Appropriate) Problem: Postoperative Nausea and Vomiting (Cardiovascular Surgery) Goal: Nausea and Vomiting Relief 06/20/2024 1028 by Michelle Orozco RN Outcome: Ongoing (Interventions Implemented as Appropriate) 06/20/2024 1028 by Michelle Orozco RN Outcome: Ongoing (Interventions Implemented as Appropriate) Problem: Postoperative Urinary Retention (Cardiovascular Surgery) Goal: Effective Urinary Elimination 06/20/2024 1028 by Michelle Orozco RN Outcome: Ongoing (Interventions Implemented as Appropriate) 06/20/2024 1028 by Michelle Orozco RN Outcome: Ongoing (Interventions Implemented as Appropriate) Problem: Respiratory Compromise (Cardiovascular Surgery) Goal: Effective Oxygenation and Ventilation 06/20/2024 1028 by Michelle Orozco RN Outcome: Ongoing (Interventions Implemented as Appropriate) 06/20/2024 1028 by Michelle Orozco RN Outcome: Ongoing (Interventions Implemented as Appropriate) Problem: Fall Injury Risk Goal: Absence of Fall and Fall-Related Injury 06/20/2024 1028 by Michelle Orozco RN Outcome: Ongoing (Interventions Implemented as Appropriate) 06/20/2024 1028 by Michelle Orozco RN Outcome: Ongoing (Interventions Implemented as Appropriate) * Plan of Care - Mary Lou Lane RN - 06/19/2024 10:49 AM ESTSummary: Day shift summary OUTCOME EVALUATION NOTE: OUTCOME SUMMARY: George Mehta is a 69 y.o. male admitted s/p STEMI who is now POD5 of CABGx3 and MARIALUISA clipping. This shift he was able to ambulate around the unit independently and his sternal pain was controlled by tylenol and one prn oxy. Pt is A+Ox4 and their v/s have been stable. Pt is displaying no signs or symptoms of distress. Pt is 100% Vpaced with PPM. The plan is for continued IV diuresis and d/c planning. CPG GOAL OUTCOME EVALUATION: Problem: Adult Inpatient Plan of Care Goal: Plan of Care Review Outcome: Ongoing (Interventions Implemented as Appropriate) Goal: Patient-Specific Goal (Individualized) Outcome: Ongoing (Interventions Implemented as Appropriate) Goal: Absence of Hospital-Acquired Illness or Injury Outcome: Ongoing (Interventions Implemented as Appropriate) Goal: Optimal Comfort and Wellbeing Outcome: Ongoing (Interventions Implemented as Appropriate) Goal: Readiness for Transition of Care Outcome: Ongoing (Interventions Implemented as Appropriate) Problem: Activity Intolerance (Cardiovascular Surgery) Goal: Improved Activity Tolerance Outcome: Ongoing (Interventions Implemented as Appropriate) Problem: Adjustment to Surgery (Cardiovascular Surgery) Goal: Optimal Coping with Heart Surgery Outcome: Ongoing (Interventions Implemented as Appropriate) Problem: Bleeding (Cardiovascular Surgery) Goal: Absence of Bleeding Outcome: Ongoing (Interventions Implemented as Appropriate) Problem: Bowel Elimination Impaired (Cardiovascular Surgery) Goal: Effective Bowel Elimination Outcome: Ongoing (Interventions Implemented as Appropriate) Problem: Cardiac Function Impaired (Cardiovascular Surgery) Goal: Effective Cardiac Function Outcome: Ongoing (Interventions Implemented as Appropriate) Problem: Cerebral Tissue Perfusion Risk (Cardiovascular Surgery) Goal: Effective Cerebral Perfusion Outcome: Ongoing (Interventions Implemented as Appropriate) Problem: Fluid Imbalance (Cardiovascular Surgery) Goal: Fluid Balance Outcome: Ongoing (Interventions Implemented as Appropriate) Problem: Infection (Cardiovascular Surgery) Goal: Absence of Infection Signs and Symptoms Outcome: Ongoing (Interventions Implemented as Appropriate) Problem: Ongoing Anesthesia Effects (Cardiovascular Surgery) Goal: Anesthesia/Sedation Recovery Outcome: Ongoing (Interventions Implemented as Appropriate) Problem: Pain (Cardiovascular Surgery) Goal: Acceptable Pain Control Outcome: Ongoing (Interventions Implemented as Appropriate) Problem: Postoperative Nausea and Vomiting (Cardiovascular Surgery) Goal: Nausea and Vomiting Relief Outcome: Ongoing (Interventions Implemented as Appropriate) Problem: Postoperative Urinary Retention (Cardiovascular Surgery) Goal: Effective Urinary Elimination Outcome: Ongoing (Interventions Implemented as Appropriate) Problem: Respiratory Compromise (Cardiovascular Surgery) Goal: Effective Oxygenation and Ventilation Outcome: Ongoing (Interventions Implemented as Appropriate) Problem: Fall Injury Risk Goal: Absence of Fall and Fall-Related Injury Outcome: Ongoing (Interventions Implemented as Appropriate) Mary Lou PIERRE RN * Consult Note - Teresa Roberts RN - 06/18/2024 10:50 AM EST [facility] George Mehta was seen today regarding participation in the outpatient Phase 2 Cardiac Rehabilitation at [facility]. The patient agrees to a referral to this program. The referral will be sent at discharge and the patient should be contacted by the program within 1-2 weeks from discharge. * Plan of Care - Wanda Jaquez RN - 06/18/2024 6:15 AM EST George had a good night. Slept intermittently in the chair. Pain controlled with PRN oxy X1. Problem: Adult Inpatient Plan of Care Goal: Plan of Care Review Outcome: Ongoing (Interventions Implemented as Appropriate) Goal: Patient-Specific Goal (Individualized) Outcome: Ongoing (Interventions Implemented as Appropriate) Goal: Absence of Hospital-Acquired Illness or Injury Outcome: Ongoing (Interventions Implemented as Appropriate) Goal: Optimal Comfort and Wellbeing Outcome: Ongoing (Interventions Implemented as Appropriate) Goal: Readiness for Transition of Care Outcome: Ongoing (Interventions Implemented as Appropriate) Problem: Activity Intolerance (Cardiovascular Surgery) Goal: Improved Activity Tolerance Outcome: Ongoing (Interventions Implemented as Appropriate) Problem: Adjustment to Surgery (Cardiovascular Surgery) Goal: Optimal Coping with Heart Surgery Outcome: Ongoing (Interventions Implemented as Appropriate) Problem: Bleeding (Cardiovascular Surgery) Goal: Absence of Bleeding Outcome: Ongoing (Interventions Implemented as Appropriate) Problem: Bowel Elimination Impaired (Cardiovascular Surgery) Goal: Effective Bowel Elimination Outcome: Ongoing (Interventions Implemented as Appropriate) Problem: Cardiac Function Impaired (Cardiovascular Surgery) Goal: Effective Cardiac Function Outcome: Ongoing (Interventions Implemented as Appropriate) Problem: Cerebral Tissue Perfusion Risk (Cardiovascular Surgery) Goal: Effective Cerebral Perfusion Outcome: Ongoing (Interventions Implemented as Appropriate) Problem: Fluid Imbalance (Cardiovascular Surgery) Goal: Fluid Balance Outcome: Ongoing (Interventions Implemented as Appropriate) Problem: Infection (Cardiovascular Surgery) Goal: Absence of Infection Signs and Symptoms Outcome: Ongoing (Interventions Implemented as Appropriate) Problem: Ongoing Anesthesia Effects (Cardiovascular Surgery) Goal: Anesthesia/Sedation Recovery Outcome: Ongoing (Interventions Implemented as Appropriate) Problem: Pain (Cardiovascular Surgery) Goal: Acceptable Pain Control Outcome: Ongoing (Interventions Implemented as Appropriate) Problem: Postoperative Nausea and Vomiting (Cardiovascular Surgery) Goal: Nausea and Vomiting Relief Outcome: Ongoing (Interventions Implemented as Appropriate) Problem: Postoperative Urinary Retention (Cardiovascular Surgery) Goal: Effective Urinary Elimination Outcome: Ongoing (Interventions Implemented as Appropriate) Problem: Respiratory Compromise (Cardiovascular Surgery) Goal: Effective Oxygenation and Ventilation Outcome: Ongoing (Interventions Implemented as Appropriate) Problem: Fall Injury Risk Goal: Absence of Fall and Fall-Related Injury Outcome: Ongoing (Interventions Implemented as Appropriate) * Care Management - Vargas Delong RN - 06/17/2024 12:11 PM EST OFFICE OF CARE MANAGEMENT PROGRESS NOTE LOS: Hospital Day 15 days Chart reviewed, care reviewed with primary team and at interdisciplinary rounds. Medical Decision Maker: Self Financial Decision Maker: Self Functional status prior to admission: Independent Home Environment: Others in the home: spouse, pet(s) (Pt lives w/ his , Mandy, and 2 dogs Zuleika & Kaley). Current Living Arrangements: home/apartment/condo. Accessibility Concerns: 1st floor apt. No NADER. No concerns.. Current Functional Ability: Independent *Independent of all ADLs/iADLs at baseline, ambulates without assistive devices DME used at home: none, other (see comments) (Pt states he has grab bars and a shower chair in the bathroom) DME Needed at Discharge: pending clinical course and PT/OT recs Patient is insured through: Primary Insurance: [employer] MANAGED MEDICARE Payor: AARP MANAGED MEDICARE / Plan: AARP [facility] MANAGED MEDICARE COMPLETE / Product Type: *No Product type* / Secondary Insurance: N/A Last Physical Therapy Recommendation: (home with ) with to be determined (06/15/24 1028) Plan for discharge is: Home w/ Services Outpatient Agency/Support Group Needs: Homecare agency Agency Choices: [facility]: Medication checks, Registered Nurse, Physical Therapy Agency Referrals: pending clinical course and PT/OT recs [facility]. [address] [facility] [address] PHONE: [phone] FAX: [phone] Transportation: family or friend will provide Barriers to discharge: Global: Discharge planning Global Comment: coordination of VNA services prior to discharge Plan: Patient is not medically ready related to: s/p CABGx3 and MARIALUISA clipping. Plan going forward is: Per the team, the pt is 3 Days Post-Op CABGx3 and MARIALUISA clipping. Cr is down trending per the team (now 1.5); EP interrogated AICD; currently DDD paced; managing pain control; d/c plan pending clinical course and PT/OT recs, but anticipating d/c home with home health services when ; JAMIE GRAMAJO will continue to monitor for potential d/c needs. Anticipated Date of Discharge: 06/19/2024 * Plan of Care - Joel Shay RN - 06/17/2024 7:32 AM EST Problem: Adult Inpatient Plan of Care Goal: Plan of Care Review Outcome: Ongoing (Interventions Implemented as Appropriate) Goal: Patient-Specific Goal (Individualized) Outcome: Ongoing (Interventions Implemented as Appropriate) Goal: Absence of Hospital-Acquired Illness or Injury Outcome: Ongoing (Interventions Implemented as Appropriate) Goal: Optimal Comfort and Wellbeing Outcome: Ongoing (Interventions Implemented as Appropriate) Goal: Readiness for Transition of Care Outcome: Ongoing (Interventions Implemented as Appropriate) Problem: Activity Intolerance (Cardiovascular Surgery) Goal: Improved Activity Tolerance Outcome: Ongoing (Interventions Implemented as Appropriate) Problem: Adjustment to Surgery (Cardiovascular Surgery) Goal: Optimal Coping with Heart Surgery Outcome: Ongoing (Interventions Implemented as Appropriate) Problem: Bleeding (Cardiovascular Surgery) Goal: Absence of Bleeding Outcome: Ongoing (Interventions Implemented as Appropriate) Problem: Bowel Elimination Impaired (Cardiovascular Surgery) Goal: Effective Bowel Elimination Outcome: Ongoing (Interventions Implemented as Appropriate) Problem: Cardiac Function Impaired (Cardiovascular Surgery) Goal: Effective Cardiac Function Outcome: Ongoing (Interventions Implemented as Appropriate) Problem: Cerebral Tissue Perfusion Risk (Cardiovascular Surgery) Goal: Effective Cerebral Perfusion Outcome: Ongoing (Interventions Implemented as Appropriate) Problem: Fluid Imbalance (Cardiovascular Surgery) Goal: Fluid Balance Outcome: Ongoing (Interventions Implemented as Appropriate) Problem: Infection (Cardiovascular Surgery) Goal: Absence of Infection Signs and Symptoms Outcome: Ongoing (Interventions Implemented as Appropriate) Problem: Ongoing Anesthesia Effects (Cardiovascular Surgery) Goal: Anesthesia/Sedation Recovery Outcome: Ongoing (Interventions Implemented as Appropriate) Problem: Pain (Cardiovascular Surgery) Goal: Acceptable Pain Control Outcome: Ongoing (Interventions Implemented as Appropriate) Problem: Postoperative Nausea and Vomiting (Cardiovascular Surgery) Goal: Nausea and Vomiting Relief Outcome: Ongoing (Interventions Implemented as Appropriate) Problem: Postoperative Urinary Retention (Cardiovascular Surgery) Goal: Effective Urinary Elimination Outcome: Ongoing (Interventions Implemented as Appropriate) Problem: Respiratory Compromise (Cardiovascular Surgery) Goal: Effective Oxygenation and Ventilation Outcome: Ongoing (Interventions Implemented as Appropriate) Problem: Fall Injury Risk Goal: Absence of Fall and Fall-Related Injury Outcome: Ongoing (Interventions Implemented as Appropriate) * Plan of Care - Zeferino Mosqueda RN - 06/17/2024 12:21 AM EST Problem: Adult Inpatient Plan of Care Goal: Plan of Care Review Outcome: Ongoing (Interventions Implemented as Appropriate) Goal: Patient-Specific Goal (Individualized) Outcome: Ongoing (Interventions Implemented as Appropriate) Goal: Absence of Hospital-Acquired Illness or Injury Outcome: Ongoing (Interventions Implemented as Appropriate) Goal: Optimal Comfort and Wellbeing Outcome: Ongoing (Interventions Implemented as Appropriate) Goal: Readiness for Transition of Care Outcome: Ongoing (Interventions Implemented as Appropriate) Problem: Activity Intolerance (Cardiovascular Surgery) Goal: Improved Activity Tolerance Outcome: Ongoing (Interventions Implemented as Appropriate) Problem: Adjustment to Surgery (Cardiovascular Surgery) Goal: Optimal Coping with Heart Surgery Outcome: Ongoing (Interventions Implemented as Appropriate) Problem: Bleeding (Cardiovascular Surgery) Goal: Absence of Bleeding Outcome: Ongoing (Interventions Implemented as Appropriate) Problem: Bowel Elimination Impaired (Cardiovascular Surgery) Goal: Effective Bowel Elimination Outcome: Ongoing (Interventions Implemented as Appropriate) Problem: Cardiac Function Impaired (Cardiovascular Surgery) Goal: Effective Cardiac Function Outcome: Ongoing (Interventions Implemented as Appropriate) Problem: Cerebral Tissue Perfusion Risk (Cardiovascular Surgery) Goal: Effective Cerebral Perfusion Outcome: Ongoing (Interventions Implemented as Appropriate) Problem: Fluid Imbalance (Cardiovascular Surgery) Goal: Fluid Balance Outcome: Ongoing (Interventions Implemented as Appropriate) Problem: Infection (Cardiovascular Surgery) Goal: Absence of Infection Signs and Symptoms Outcome: Ongoing (Interventions Implemented as Appropriate) Problem: Ongoing Anesthesia Effects (Cardiovascular Surgery) Goal: Anesthesia/Sedation Recovery Outcome: Ongoing (Interventions Implemented as Appropriate) Problem: Pain (Cardiovascular Surgery) Goal: Acceptable Pain Control Outcome: Ongoing (Interventions Implemented as Appropriate) Problem: Postoperative Nausea and Vomiting (Cardiovascular Surgery) Goal: Nausea and Vomiting Relief Outcome: Ongoing (Interventions Implemented as Appropriate) Problem: Postoperative Urinary Retention (Cardiovascular Surgery) Goal: Effective Urinary Elimination Outcome: Ongoing (Interventions Implemented as Appropriate) Problem: Respiratory Compromise (Cardiovascular Surgery) Goal: Effective Oxygenation and Ventilation Outcome: Ongoing (Interventions Implemented as Appropriate) Problem: Fall Injury Risk Goal: Absence of Fall and Fall-Related Injury Outcome: Ongoing (Interventions Implemented as Appropriate) * Plan of Care - Renetta Solares - 06/16/2024 6:34 PM EST OUTCOME EVALUATION NOTE: OUTCOME SUMMARY: Weaned to 1L NC. Mediastinal Cts out, midline marcos remains. Pain controlled with scheduled [place] PRN oxy x1. Tolerating diet well, no BM. Refused back to bed for the night d/t chest tube pain w/ movement, requested to sleep in chair. Trended lactate, 1.8 x2. PLAN MOVING FORWARD: Remaining tube out CPG GOAL OUTCOME EVALUATION: Problem: Cardiac Function Impaired (Cardiovascular Surgery) Goal: Effective Cardiac Function Outcome: Ongoing (Interventions Implemented as Appropriate) Problem: Fluid Imbalance (Cardiovascular Surgery) Goal: Fluid Balance Outcome: Ongoing (Interventions Implemented as Appropriate) Problem: Pain (Cardiovascular Surgery) Goal: Acceptable Pain Control Outcome: Ongoing (Interventions Implemented as Appropriate) Problem: Respiratory Compromise (Cardiovascular Surgery) Goal: Effective Oxygenation and Ventilation Outcome: Ongoing (Interventions Implemented as Appropriate) * Plan of Care - Zeferino Mosqueda RN - 06/15/2024 9:54 PM EST Problem: Adult Inpatient Plan of Care Goal: Plan of Care Review Outcome: Ongoing (Interventions Implemented as Appropriate) Goal: Patient-Specific Goal (Individualized) Outcome: Ongoing (Interventions Implemented as Appropriate) Goal: Absence of Hospital-Acquired Illness or Injury Outcome: Ongoing (Interventions Implemented as Appropriate) Goal: Optimal Comfort and Wellbeing Outcome: Ongoing (Interventions Implemented as Appropriate) Goal: Readiness for Transition of Care Outcome: Ongoing (Interventions Implemented as Appropriate) Problem: Activity Intolerance (Cardiovascular Surgery) Goal: Improved Activity Tolerance Outcome: Ongoing (Interventions Implemented as Appropriate) Problem: Adjustment to Surgery (Cardiovascular Surgery) Goal: Optimal Coping with Heart Surgery Outcome: Ongoing (Interventions Implemented as Appropriate) Problem: Bleeding (Cardiovascular Surgery) Goal: Absence of Bleeding Outcome: Ongoing (Interventions Implemented as Appropriate) Problem: Bowel Elimination Impaired (Cardiovascular Surgery) Goal: Effective Bowel Elimination Outcome: Ongoing (Interventions Implemented as Appropriate) Problem: Cardiac Function Impaired (Cardiovascular Surgery) Goal: Effective Cardiac Function Outcome: Ongoing (Interventions Implemented as Appropriate) Problem: Cerebral Tissue Perfusion Risk (Cardiovascular Surgery) Goal: Effective Cerebral Perfusion Outcome: Ongoing (Interventions Implemented as Appropriate) Problem: Fluid Imbalance (Cardiovascular Surgery) Goal: Fluid Balance Outcome: Ongoing (Interventions Implemented as Appropriate) Problem: Infection (Cardiovascular Surgery) Goal: Absence of Infection Signs and Symptoms Outcome: Ongoing (Interventions Implemented as Appropriate) Problem: Ongoing Anesthesia Effects (Cardiovascular Surgery) Goal: Anesthesia/Sedation Recovery Outcome: Ongoing (Interventions Implemented as Appropriate) Problem: Pain (Cardiovascular Surgery) Goal: Acceptable Pain Control Outcome: Ongoing (Interventions Implemented as Appropriate) Problem: Postoperative Nausea and Vomiting (Cardiovascular Surgery) Goal: Nausea and Vomiting Relief Outcome: Ongoing (Interventions Implemented as Appropriate) Problem: Postoperative Urinary Retention (Cardiovascular Surgery) Goal: Effective Urinary Elimination Outcome: Ongoing (Interventions Implemented as Appropriate) Problem: Respiratory Compromise (Cardiovascular Surgery) Goal: Effective Oxygenation and Ventilation Outcome: Ongoing (Interventions Implemented as Appropriate) Problem: Fall Injury Risk Goal: Absence of Fall and Fall-Related Injury Outcome: Ongoing (Interventions Implemented as Appropriate) * Plan of Care - Angeles Lowry RN - 06/15/2024 6:07 PM EST OUTCOME EVALUATION NOTE: OUTCOME SUMMARY: Pt A&O throughout shift. Joe/SUNNY/alia pulled per order/protocol.Pt ambulating well around unit. Issues with pain throughout shift, dilaudid given PRN and frequency increased per PA. PLAN MOVING FORWARD: CT pathway * Plan of Care - Zeferino Mosqueda RN - 06/15/2024 2:24 AM EST Problem: Adult Inpatient Plan of Care Goal: Plan of Care Review Outcome: Ongoing (Interventions Implemented as Appropriate) Goal: Patient-Specific Goal (Individualized) Outcome: Ongoing (Interventions Implemented as Appropriate) Goal: Absence of Hospital-Acquired Illness or Injury Outcome: Ongoing (Interventions Implemented as Appropriate) Goal: Optimal Comfort and Wellbeing Outcome: Ongoing (Interventions Implemented as Appropriate) Goal: Readiness for Transition of Care Outcome: Ongoing (Interventions Implemented as Appropriate) Problem: Activity Intolerance (Cardiovascular Surgery) Goal: Improved Activity Tolerance Outcome: Ongoing (Interventions Implemented as Appropriate) Problem: Adjustment to Surgery (Cardiovascular Surgery) Goal: Optimal Coping with Heart Surgery Outcome: Ongoing (Interventions Implemented as Appropriate) Problem: Bleeding (Cardiovascular Surgery) Goal: Absence of Bleeding Outcome: Ongoing (Interventions Implemented as Appropriate) Problem: Bowel Elimination Impaired (Cardiovascular Surgery) Goal: Effective Bowel Elimination Outcome: Ongoing (Interventions Implemented as Appropriate) Problem: Cardiac Function Impaired (Cardiovascular Surgery) Goal: Effective Cardiac Function Outcome: Ongoing (Interventions Implemented as Appropriate) Problem: Cerebral Tissue Perfusion Risk (Cardiovascular Surgery) Goal: Effective Cerebral Perfusion Outcome: Ongoing (Interventions Implemented as Appropriate) Problem: Fluid Imbalance (Cardiovascular Surgery) Goal: Fluid Balance Outcome: Ongoing (Interventions Implemented as Appropriate) Problem: Infection (Cardiovascular Surgery) Goal: Absence of Infection Signs and Symptoms Outcome: Ongoing (Interventions Implemented as Appropriate) Problem: Ongoing Anesthesia Effects (Cardiovascular Surgery) Goal: Anesthesia/Sedation Recovery Outcome: Ongoing (Interventions Implemented as Appropriate) Problem: Pain (Cardiovascular Surgery) Goal: Acceptable Pain Control Outcome: Ongoing (Interventions Implemented as Appropriate) Problem: Postoperative Nausea and Vomiting (Cardiovascular Surgery) Goal: Nausea and Vomiting Relief Outcome: Ongoing (Interventions Implemented as Appropriate) Problem: Postoperative Urinary Retention (Cardiovascular Surgery) Goal: Effective Urinary Elimination Outcome: Ongoing (Interventions Implemented as Appropriate) Problem: Respiratory Compromise (Cardiovascular Surgery) Goal: Effective Oxygenation and Ventilation Outcome: Ongoing (Interventions Implemented as Appropriate) Problem: Fall Injury Risk Goal: Absence of Fall and Fall-Related Injury Outcome: Ongoing (Interventions Implemented as Appropriate) * Care Management - Vargas Delong RN - 06/14/2024 3:27 PM EST OFFICE OF CARE MANAGEMENT PROGRESS NOTE LOS: Hospital Day 12 days Chart reviewed, care reviewed with primary team and at interdisciplinary rounds. Medical Decision Maker: SDM (spouse; pt is currently intubated and sedated) Financial Decision Maker: SDM (spouse; pt is currently intubated and sedated) Functional status prior to admission: Independent Home Environment: Others in the home: spouse, pet(s) (Pt lives w/ his , Mandy, and 2 dogs Zuleika & Kaley). Current Living Arrangements: home/apartment/condo. Accessibility Concerns: 1st floor apt. No NADER. No concerns.. Current Functional Ability: completely dependent (intubated and sedated s/p CABG) DME used at home: none, other (see comments) (Pt states he has grab bars and a shower chair in the bathroom) DME Needed at Discharge: TBD; pending clinical course and PT/OT recs Patient is insured through: Primary Insurance: [employer] MANAGED MEDICARE Payor: [employer] MANAGED MEDICARE / Plan: AARP R[employer] MANAGED MEDICARE COMPLETE / Product Type: *No Product type* / Secondary Insurance: N/A Plan for discharge is: Home w/ Services Outpatient Agency/Support Group Needs: Homecare agency Agency Choices: [facility]: Medication checks, Registered Nurse, Physical Therapy Agency Referrals: pending clinical course and PT/OT recs [facility] [address] [place] [address] PHONE: [phone] FAX: [phone] Transportation: family or friend will provide Barriers to discharge: Global: Discharge planning Global Comment: coordination of VNA services prior to discharge Plan: Patient is not medically ready related to: s/p CABGx3. Plan going forward is: Per the team, the patient remains intubated and sedated in the CVCC s/p CABGx3 with Cardiac Surgery. D/C plan pending clinical course and PT/OT recs, but anticipating d/c home with home health services when MR. JAMIE CM will continue to monitor for anticipated d/c needs. Anticipated Date of Discharge: 06/19/2024 * Op Note - Bobby Loja MD - 06/14/2024 8:48 AM EST [facility] Operative Note Patient Name: George Mehta : [id number] MR#: [id number] Case Date: 06/14/2024 Surgeon: Surgeons and Role: * Bobby Loja MD - Primary * Rashi Bass PA - Physician Radio Engineer Preoperative diagnosis: CAD, MARIALUISA flickering mass on KAREN Postoperative diagnosis: Same, Mediastinal mass overlying the Ascending aorta. Procedure(s) (LRB): @CABG, USING ARTERIAL GRAFT;SINGLE ARTERIAL GRAFT (WRVU 33.75) (N/A) @CABG, TWO VENOUS GRAFTS & ARTERIAL GRAFT (WRVU 7.93) (N/A) ENDOSCOPIC HARVEST VEIN(S) FOR CABG (WRVU 0.31) (N/A) @EXCISION OF MEDIASTINAL TUMOR (WRVU 19.55) (N/A) EXPLORATION AND OVERSEW ATRIAL APPENDAGE (WRVU 5.94) (N/A) Anesthesia: General Estimated Blood Loss: 334 mL Specimens removed during surgery: ID Type Source Tests Collected by Time Destination 1 : mediastinal mass Tissue Soft Tissue Mass SURGICAL PATHOLOGY Bobby Loja MD 06/14/2024 0953 2 : extracardiac mass Tissue Soft Tissue Mass SURGICAL PATHOLOGY Bobby Loja MD 06/14/2024 0954 3 : Tissue Heart, Atrial Appendage, Left SURGICAL PATHOLOGY Bobby Loja MD 06/14/2024 1054 A : Blood Blood, Arterial PLATELET COUNT, FIBRINOGEN (Canceled), HEMOGLOBIN AND HEMATOCRIT, BLOOD Allison Gallagher 06/14/2024 1123 B : Blood Blood, Arterial PROTHROMBIN TIME, APTT Allison Gallagher 06/14/2024 1209 C : Blood Blood, Arterial PLATELET COUNT, FIBRINOGEN, PROTHROMBIN TIME, APTT, HEMOGLOBIN AND HEMATOCRIT, BLOOD Hosea Ardon MD 06/14/2024 1230 Drains: 3 chest tubes Surgical Closure: Primary Closure - skin incision is closed but with open spaces for wires, lukas, drains or other devices Disposition: taken directly to the ICU, intubated and in a critical condition. Condition: doing well without problems (Please see the Surgical Encounter Summary for any Implant and Specimen details pertinent to this patient.) HPI/Surgical Indications: 69 y o male with 3 v CAD. High risk due to low EF and poor targets. Not amenable to PCI per IC. Consented for CAB understanding the high risk of the procedure Procedure Description: .The patient was taken to the Operating Room and had a radial A-line placed. All the proper lines and monitors were placed by Anesthesia. The patient was then prepped and draped in the normal sterile fashion. A KAREN revealed an EF of 25% and a flickering mass in the MARIALUISA. The right leg was used to harvest the greater saphenous vein using an endoscopic technique. The Hemopro2 system was used to dissect out the vein. All the side branches were cauterized. The vein was ligated distally and proximally. The vein was flushed with heparinized saline in a reverse direction. All the side branches were doubly clipped. The vein was striped with a sterile pen. The leg had a DAYNA drain placed in it. The chest was opened along the midline sternotomy. Cautery was used on the sternal edges and bone wax was lightly applied to the divided marrow of the sternum. A mediastinal mass was identified overlying the ascending aorta. It was resected and sent to pathology to allow access to the aorta. The left karen-sternum was elevated. The pleura were taken down, and the mammary artery was dissected free clipping all side branches. Heparin was given. Several minutes later the distal end of the mammary was clipped and tied on the chest wall, and the bleeding end had a bulldog placed across it. The JULIO had excellent flow. The Rultract was removed. The sternal retractor was used to open the sternum. The overlying pericardium was opened in an inverse-T fashion and hung to the edge of the sternal retractor. Full-dose heparin was given. An epiaortic probe was used to visualize the aortic wall and avoid any wall calcifications. The aorta was cannulated. The right atrium had the venous cannula placed through the IVC. The antegrade was place mid ascending aorta which also doubled as the root vent. With the ACT above 450, we went on bypass. The targets were inspected. The aorta was crossclamped and the heart was arrested with cold blood cardioplegia antegrade and retrograde. We drifted to 34 degrees Celsius. The bypasses : The PDA target was identified and opened and in an end to side fashion the SVG was anastomosed witha running 7.0 prolene. Cardiopelegia was given down the graft and there were no leaks. The heart was filled and the graft was measured for length and cut. A punch was made in the aorta and a proximal anastomosis was created with a 6-0. The OM2 target was identified and opened and in an end to side fashion the SVG was anastomosed witha running 7.0 prolene. Cardiopelegia was given down the graft and there were no leaks. The heart was filled and the graft was measured for length and cut. A punch was made in the aorta and a proximal anastomosis was created with a 6-0. The THOMAS was taken out of the left chest and a slit was created in the L side of the pericardium making sure to identify the L phrenic nerve. The THOMAS was anastomosed to the LAD with a running 7-0 prolene. The bulldog was removed to test the graft and perfuse the heart. MARIALUISA exploration and clipping: The MARIALUISA was cut and explored and suctioned. There was no masses that can be seen through the opening. The base was identified and was clean. The MARIALUISA was clipped at the base with a 35 mm Atricure clip. The heart was de-aired. The crossclamp was removed. The heart began beating in a sinus rhythm. The grafts were inspected. The heart was allowed to re-perfuse. Three chest tubes were placed in all compartments of the chest. The patient was rewarmed and from bypass. The venous cannula was removed and the pursestring was tied down and oversewn. Protamine was given. The aortic cannula was removed. Purse-strings were tied down and oversewn. Hemostasis was checked. Vanco paste was applied to the sternum. Interrupted wires were used to close the chest, several layers of Vicryl, and a 4-0 Monocryl were used to close the overlying soft tissue. A dressing was applied. The post bypass KAREN revealed an improved EF to 35% and exclusion of the MARIALUISA with minor flickering in the LA around the area. The patient was transported to the [facility] in a critical but stable condition Surgical Infection Prevention Bundle Used? N/A Attestation: Case Date: 06/14/2024 I performed this procedure without the involvement of a resident. Bobby Loja MD 06/14/2024 * Plan of Care - Gina Snow RN - 06/14/2024 6:24 AM EST Problem: Adjustment to Surgery (Cardiovascular Surgery) Goal: Optimal Coping with Heart Surgery Outcome: Ongoing (Interventions Implemented as Appropriate) Intervention: Support Psychosocial Response to Surgery Flowsheets (Taken 06/13/20241999) Supportive Measures: verbalization of feelings encouraged relaxation techniques promoted Note: George endorsed slight anxiety overnight related to upcoming surgery. He had a restful night following single dose of lorazepam. Problem: Bleeding (Cardiovascular Surgery) Goal: Absence of Bleeding Outcome: Ongoing (Interventions Implemented as Appropriate) Intervention: Monitor and Manage Bleeding Note: Heparin infusion continued following 60 min pause for supratherapeutic UFH, currently runningat 1,000 U/hour until CT surgery this morning. Problem: Infection (Cardiovascular Surgery) Goal: Absence of Infection Signs and Symptoms Outcome: Ongoing (Interventions Implemented as Appropriate) Intervention: Prevent or Manage Infection Flowsheets (Taken 06/14/2024 0620) Glycemic Management: blood glucose monitored supplemental insulin given Note: Normothermic this shift, no overt concern for infection. Post prandial hyperglycemia resolvedovernight. Currently NPO. Problem: Respiratory Compromise (Cardiovascular Surgery) Goal: Effective Oxygenation and Ventilation Outcome: Ongoing (Interventions Implemented as Appropriate) Intervention: Optimize Oxygenation and Ventilation Note: Pre-operatively maintains adequate saturations on RA. IABP 1:1, no complications with device or site. Normotensive/ hypertensive without need for vasopressor overnight. Surgical shower/ bed bath with Hibiclens completed. Weight stable. * Plan of Care - Michelle Orozco RN - 06/13/2024 9:30 AM EST OUTCOME EVALUATION NOTE: OUTCOME SUMMARY: No CP or SOB. Ventricular paced on tele, see scanned docs. On RA. Endorsed anxiousness about procedures today and tomorrow. Report called to [facility] - all belongings with patient. 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 INDIVIDUALIZED FALL PREVENTION INTERVENTIONS: Assistance [level of assistance required for transfers and ambulation]: independent CPG GOAL OUTCOME EVALUATION: Problem: Adult Inpatient Plan of Care Goal: Plan of Care Review Outcome: Ongoing (Interventions Implemented as Appropriate) Goal: Patient-Specific Goal (Individualized) Outcome: Ongoing (Interventions Implemented as Appropriate) Goal: Absence of Hospital-Acquired Illness or Injury Outcome: Ongoing (Interventions Implemented as Appropriate) Goal: Optimal Comfort and Wellbeing Outcome: Ongoing (Interventions Implemented as Appropriate) Goal: Readiness for Transition of Care Outcome: Ongoing (Interventions Implemented as Appropriate) * Plan of Care - Dinesh Patel RN - 06/13/2024 7:33 AM EST SHIFT EVALUATION NOTE: SHIFT SUMMARY: Assumed care @ 1900, A&Ox4, VSS on RA. Potassium am labs <4, replaced per protocol w/ recheck Q4, see MAR. Ambulated laps in hallway overnight, see chart. NPO @ 0000. PLAN MOVING FORWARD: Balloon placement 06/13? CABG 06/14? Continue to monitor per protocol Discharge planning as appropriate INDIVIDUALIZED FALL PREVENTION INTERVENTIONS: Patient-specific fall risk factors per assessment: [current deficits]: unfamiliar environment, wires/cords/lines Assistance [level of assistance required for transfers and ambulation]: Independent Supervision [direct monitoring required during toileting and ADLs]: Independent Surveillance [continuous indirect monitoring]: Telemetry, pulse ox Patient-specific fall prevention interventions for sensory deficits provided, if applicable: Yes. Lighting adjusted, clutter free environment, non-slips on, call jones within reach and calls as appropriate. CPG GOAL OUTCOME EVALUATION: Ongoing * Plan of Care - Paula Mejia RN - 06/12/2024 6:03 PM EST Problem: Adult Inpatient Plan of Care Goal: Plan of Care Review Outcome: Ongoing (Interventions Implemented as Appropriate) Goal: Patient-Specific Goal (Individualized) Outcome: Ongoing (Interventions Implemented as Appropriate) Goal: Absence of Hospital-Acquired Illness or Injury Outcome: Ongoing (Interventions Implemented as Appropriate) Goal: Optimal Comfort and Wellbeing Outcome: Ongoing (Interventions Implemented as Appropriate) Goal: Readiness for Transition of Care Outcome: Ongoing (Interventions Implemented as Appropriate) * Plan of Care - Michelle Orozco RN - 06/12/2024 5:55 AM EST OUTCOME EVALUATION NOTE: OUTCOME SUMMARY: No CP or SOB. Ventricular paced on tele, see scanned docs. On RA. Heparin gtts continuous, UFH therapeutic. Walking around unit independently. Common items and call jones within reach. PLAN MOVING FORWARD: Surgical planning INDIVIDUALIZED FALL PREVENTION INTERVENTIONS: Assistance [level of assistance required for transfers and ambulation]: independent CPG GOAL OUTCOME EVALUATION: Problem: Adult Inpatient Plan of Care Goal: Plan of Care Review Outcome: Ongoing (Interventions Implemented as Appropriate) Goal: Patient-Specific Goal (Individualized) Outcome: Ongoing (Interventions Implemented as Appropriate) Goal: Absence of Hospital-Acquired Illness or Injury Outcome: Ongoing (Interventions Implemented as Appropriate) Goal: Optimal Comfort and Wellbeing Outcome: Ongoing (Interventions Implemented as Appropriate) Goal: Readiness for Transition of Care Outcome: Ongoing (Interventions Implemented as Appropriate) * Plan of Care - Dede Watson RN - 06/11/2024 6:23 PM EST OUTCOME EVALUATION NOTE: OUTCOME SUMMARY: After receiving the tap water enema, pt had some liquid BM, and c/o his rumbling stomach for the rest of the day. Ambulated twice around the unit with sba and a FWW. PLAN MOVING FORWARD: Improve mobility without compromising mid sternal incision . INDIVIDUALIZED FALL PREVENTION INTERVENTIONS: Patient-specific fall risk factors per assessment: [current deficits]: fresh post op and Left AKA Assistance [level of assistance required for transfers and ambulation]: SBA and fww Supervision [direct monitoring required during toileting and ADLs]: today use of bed pen for defication Surveillance [continuous indirect monitoring]: telemetry Patient-specific fall prevention interventions for sensory deficits provided, if applicable: CPG GOAL OUTCOME EVALUATION: ongoing * Care Management - Mariia Montero RN - 06/11/2024 4:15 PM EST OFFICE OF CARE MANAGEMENT PROGRESS NOTE LOS: Hospital Day 9 days Chart reviewed, care reviewed with primary team and at interdisciplinary rounds. Medical Decision Maker: Self Financial Decision Maker: Self Functional status prior to admission: Independent Home Environment: Others in the home: spouse, pet(s) (Pt lives w/ his , Mandy, and 2 dogs Zuleika & Kaley). Current Living Arrangements: home/apartment/condo. Accessibility Concerns: 1st floor apt. No NADER. No concerns.. Current Functional Ability: Independent *Independent of all ADLs/iADLs at baseline, ambulates without assistive devices DME used at home: none, other (see comments) (Pt states he has grab bars and a shower chair in the bathroom) DME Needed at Discharge: No Patient is insured through: Primary Insurance: [employer] MANAGED MEDICARE Payor: [employer] MANAGED MEDICARE / Plan: [employer] MANAGED MEDICARE COMPLETE / Product Type: *No Product type* / Secondary Insurance: N/A Plan for discharge is: Home w/ Services Outpatient Agency/Support Group Needs: Homecare agency, Agency Choices: [facility]. Home Health Services: Medication checks, Registered Nurse, Physical Therapy Agency Referrals: [facility] [address] [place] [address] RN / PT Routed 06/10 Transportation: family or friend will provide Barriers to discharge: Global: Discharge planning. Global Comment: coordination of VNA services prior to discharge Plan: Patient is not medically ready related to: STEMI, Severe MVD CAD. Plan going forward is: GDMT. Transfer to [facility] this for IABP support prior to planned CABG Friday Patient to discharge to home via POV with home health services when medically ready. sales expert/Treating Engineer Helper will continue to follow patient???s progress and remain available if situation changes for coordination of care, psychosocial support and/or discharge planning. Anticipated Date of Discharge: 06/18/2024 Mariia Montero RN CM Extension [phone] * Plan of Care - Migel Javier RN - 06/09/2024 6:22 PM EST OUTCOME EVALUATION NOTE: OUTCOME SUMMARY: Patient had an uneventful shift, AOx4, no reports of CP or SOB. Denies pain. Remains on RA O2. Ambulated 2.84 miles on the unit. Vpaced on tele. See scanned docs. Insulin correction and coverage modified to meet higher BG levels. George verbalized frustration regarding the inaction of the CT surgery team. His primary team has contacted CT surg team the past two days with no response. I reached out to Rashi Bass PA-C regarding the concern. Rashi mentioned that a planned discussion with him and Dr. Bobby Loja was tentative this afternoon. PLAN MOVING FORWARD: If there is no correspondence established between the patient and the CT surgery team by 1200 06/10,patient advocacy will be escalated to address the delay in care. Continue to actively monitor. D/C planning as appropriate. INDIVIDUALIZED FALL PREVENTION INTERVENTIONS: Patient-specific fall risk factors per assessment: [current deficits]: Tele wires, unfamiliar environment Assistance [level of assistance required for transfers and ambulation]: independent Supervision [direct monitoring required during toileting and ADLs]: Surveillance [continuous indirect monitoring]: Tele, purposeful rounding, call jones in reach Patient-specific fall prevention interventions for sensory deficits provided, if applicable: Room near unit station, Door open, Non-skid socks on when OOB, Lighting adjusted for specific task/activites,Bed in lowest position. CARE PLAN GOAL OUTCOME EVALUATION: Ongoing Problem: Arrhythmia/Dysrhythmia (Cardiac Catheterization) Goal: Stable Heart Rate and Rhythm Outcome: Outcome (s) achieved Problem: Bleeding (Cardiac Catheterization) Goal: Absence of Bleeding Outcome: Outcome (s) achieved Problem: Embolism (Cardiac Catheterization) Goal: Absence of Embolism Signs and Symptoms Outcome: Outcome (s) achieved Problem: Adult Inpatient Plan of Care Goal: Plan of Care Review Outcome: Ongoing (Interventions Implemented as Appropriate) Goal: Patient-Specific Goal (Individualized) Outcome: Ongoing (Interventions Implemented as Appropriate) Goal: Absence of Hospital-Acquired Illness or Injury Outcome: Ongoing (Interventions Implemented as Appropriate) Goal: Optimal Comfort and Wellbeing Outcome: Ongoing (Interventions Implemented as Appropriate) Goal: Readiness for Transition of Care Outcome: Ongoing (Interventions Implemented as Appropriate) * Plan of Care - Dinesh Patel RN - 06/08/2024 7:29 PM EST SHIFT EVALUATION NOTE: SHIFT SUMMARY: Assumed care @ 0700, therapeutic heparin gtt maintained. Ambulated multiple times in hallway today.BG well regulated today w/ insulin correction. Identified R eye redness/irritation in/around eye w/out sign of discharge, MD notified, erythromycin ointment provided. PLAN MOVING FORWARD: Pending CT Surg consult Continue to monitor per protocol Discharge planning as appropriate INDIVIDUALIZED FALL PREVENTION INTERVENTIONS: Patient-specific fall risk factors per assessment: [current deficits]: unfamiliar environment, wires/cords/lines Assistance [level of assistance required for transfers and ambulation]: Independent Supervision [direct monitoring required during toileting and ADLs]: Independent Surveillance [continuous indirect monitoring]: Telemetry, pulse ox Patient-specific fall prevention interventions for sensory deficits provided, if applicable: Yes. Lighting adjusted, clutter free environment, non-slips on, call jones within reach and calls as appropriate. CPG GOAL OUTCOME EVALUATION: Ongoing * Care Management - Mariia Montero RN - 06/08/2024 1:16 PM EST OFFICE OF CARE MANAGEMENT PROGRESS NOTE LOS: Hospital Day 6 days Chart reviewed, care reviewed with primary team and at interdisciplinary rounds. Medical Decision Maker: Self Financial Decision Maker: Self Functional status prior to admission: Independent Home Environment: Others in the home: spouse, pet(s) (Pt lives w/ his , Mandy, and 2 dogs Zuleika & Kaley). Current Living Arrangements: home/apartment/condo. Accessibility Concerns: 1st floor apt. No NADER. No concerns.. Current Functional Ability: Independent DME used at home: none, other (see comments) (Pt states he has grab bars and a shower chair in the bathroom) DME Needed at Discharge: No Patient is insured through: Primary Insurance: [employer] MANAGED MEDICARE Payor: [employer] MANAGED MEDICARE / Plan: [facility] MANAGED MEDICARE COMPLETE / Product Type: *No Product type* / Secondary Insurance: N/A Plan for discharge is: Pending Hospital Course and PT/OT Recommendations Agency Referrals: Not Applicable Transportation: family or friend will provide Barriers to discharge: Global: Denies needs/concerns at this time Plan: Patient is not medically ready related to: STEMI s/p lytics, ischemic cardiomyopathy-EF 25 -30 % , acute on chronic decompensated heart failure. Plan going forward is: continue heparin drip, diuresis, MRI with viability, CT surgery consult for high risk PCI vs CABG sales expert/Treating Engineer Helper will continue to follow patient???s progress and remain available if situation changes for coordination of care, psychosocial support and/or discharge planning. Anticipated Date of Discharge: 06/11/2024 Mariia Montero RN Extension [phone] * Plan of Care - Becca Hope RN - 06/08/2024 7:40 AM EST OUTCOME EVALUATION NOTE: OUTCOME SUMMARY: Patient A&Ox4 on RA Denies any CP or SOB. Urinal at bedside, ambulates independently to bathroom. Ambulates around hallways independently. Insulin given per MAR, Heparin running currently therapeutic. Plan Moving Forward Q4 VS Q4 finger sticks (every 4 hours) Diuresing, waiting for CT surgery consult. INDIVIDUALIZED FALL PREVENTION INTERVENTIONS: Patient-specific fall risk factors per assessment: [current deficits]: unfamiliar environment, lines/cords/wires Assistance [level of assistance required for transfers and ambulation]: independent Supervision [direct monitoring required during toileting and ADLs]: independent Surveillance [continuous indirect monitoring]: tele, pulse ox Patient-specific fall prevention interventions for sensory deficits provided,: non-slip socks, clutter free environment, lighting adjusted, personal items and call jones within reach. Problem: Adult Inpatient Plan of Care Goal: Plan of Care Review Outcome: Ongoing (Interventions Implemented as Appropriate) Goal: Patient-Specific Goal (Individualized) Outcome: Ongoing (Interventions Implemented as Appropriate) Goal: Absence of Hospital-Acquired Illness or Injury Outcome: Ongoing (Interventions Implemented as Appropriate) Goal: Optimal Comfort and Wellbeing Outcome: Ongoing (Interventions Implemented as Appropriate) Goal: Readiness for Transition of Care Outcome: Ongoing (Interventions Implemented as Appropriate) Problem: Arrhythmia/Dysrhythmia (Cardiac Catheterization) Goal: Stable Heart Rate and Rhythm Outcome: Ongoing (Interventions Implemented as Appropriate) Problem: Bleeding (Cardiac Catheterization) Goal: Absence of Bleeding Outcome: Ongoing (Interventions Implemented as Appropriate) Problem: Embolism (Cardiac Catheterization) Goal: Absence of Embolism Signs and Symptoms Outcome: Ongoing (Interventions Implemented as Appropriate) * Plan of Care - Dinesh Patel RN - 06/07/2024 7:47 PM EST SHIFT EVALUATION NOTE: SHIFT SUMMARY: Assumed care @ 0700, no reports of chest pain or SOB. Heparin gtt maintained at therapeutic levels.Xray completed. MRI completed. Using urinal at bedside, updated I/Os, see chart. BG elevated midday, insulin corrected. Potassium >4 throughout shift. Ambulated multiple times in hallway today. PLAN MOVING FORWARD: Maintain therapeutic heparin gtt Continue to monitor per protocol Discharge planning as appropriate INDIVIDUALIZED FALL PREVENTION INTERVENTIONS: Patient-specific fall risk factors per assessment: [current deficits]: unfamiliar environment, wires/cords/lines Assistance [level of assistance required for transfers and ambulation]: Independent Supervision [direct monitoring required during toileting and ADLs]: Independent Surveillance [continuous indirect monitoring]: Telemetry, pulse ox Patient-specific fall prevention interventions for sensory deficits provided, if applicable: Yes. Lighting adjusted, clutter free environment, non-slips on, call jones within reach and calls as appropriate. CPG GOAL OUTCOME EVALUATION: Ongoing * Consult Note - Gabriela Chan RN - 06/07/2024 8:08 AM EST During VAS Purposeful Rounding, an assessment of your patient's venous access was performed fby theVascular Access Service. The following tasks were performed if needed and communicated to the bedside RN Choose all that apply: [] PIV(s) checked for patency if daily need for flush needs to be performed [] CVAD was checked for patency if daily flush needs to be performed [] IV tubing clamped or capped if needed [] Visual inspection of your patient's central line dressing integrity [x] Review of indications for vascular access [] A photo was taken of your patient's central line [] Visual inspection of your patient's IV dressing integrity [] Other While rounding an intervention was needed and communicated to the bedside RN Choose all that apply: [] Nonocclusive IV dressing addressed [] Nonocclusive CVAD dressing (please identify type of line) [] Infusion site leaking [] IV not patent and removed [] IV not indicated [] IV placed [] IV restarted [] Implanted Port, PICC or ML dressing changed if needed (either PRN or weekly) [] Other * Plan of Care - Becca Hope RN - 06/07/2024 6:57 AM EST OUTCOME EVALUATION NOTE: OUTCOME SUMMARY: Patient A&Ox4 on RA. Denies any CP or SOB. Urinal at bedside for elimination, independent in room - rings appropriately, ambulates in hallwaysindepently. K+ replaced 40mEq per MAR, X ray in AM needed for MRI. Plan Moving Forward Q4 VS Q4Hr finger sticks INDIVIDUALIZED FALL PREVENTION INTERVENTIONS: Patient-specific fall risk factors per assessment: [current deficits]: unfamiliar environment, lines/cords/wires Assistance [level of assistance required for transfers and ambulation]: independent Supervision [direct monitoring required during toileting and ADLs]: independent Surveillance [continuous indirect monitoring]: tele, pulse ox Patient-specific fall prevention interventions for sensory deficits provided, : non-slip socks, clutter free environment, lighting adjusted, personal items and call jones within reach. Problem: Adult Inpatient Plan of Care Goal: Plan of Care Review 06/07/2024656 by Becca Hope RN Outcome: Ongoing (Interventions Implemented as Appropriate) 06/07/2024306 by Becca Hope RN Outcome: Ongoing (Interventions Implemented as Appropriate) Goal: Patient-Specific Goal (Individualized) 06/07/2024656 by Becca Hope RN Outcome: Ongoing (Interventions Implemented as Appropriate) 06/07/2024306 by Becca Hope RN Outcome: Ongoing (Interventions Implemented as Appropriate) Goal: Absence of Hospital-Acquired Illness or Injury 06/07/2024656 by Becca Hope RN Outcome: Ongoing (Interventions Implemented as Appropriate) 06/07/2024306 by Becca Hope RN Outcome: Ongoing (Interventions Implemented as Appropriate) Goal: Optimal Comfort and Wellbeing 06/07/2024656 by Becca Hope RN Outcome: Ongoing (Interventions Implemented as Appropriate) 06/07/2024306 by Becca Hope RN Outcome: Ongoing (Interventions Implemented as Appropriate) Goal: Readiness for Transition of Care 06/07/2024656 by Becca Hope RN Outcome: Ongoing (Interventions Implemented as Appropriate) 06/07/2024306 by Becca Hope RN Outcome: Ongoing (Interventions Implemented as Appropriate) Problem: Arrhythmia/Dysrhythmia (Cardiac Catheterization) Goal: Stable Heart Rate and Rhythm 06/07/2024656 by Becca Hope RN Outcome: Ongoing (Interventions Implemented as Appropriate) 06/07/2024 0307 by Becca Hope RN Outcome: Ongoing (Interventions Implemented as Appropriate) Problem: Bleeding (Cardiac Catheterization) Goal: Absence of Bleeding 06/07/2024 06 by Becca Hoep RN Outcome: Ongoing (Interventions Implemented as Appropriate) 06/07/2024306 by Becca Hope RN Outcome: Ongoing (Interventions Implemented as Appropriate) Problem: Embolism (Cardiac Catheterization) Goal: Absence of Embolism Signs and Symptoms 06/07/2024 06 by Becca Hope RN Outcome: Ongoing (Interventions Implemented as Appropriate) 06/07/2024306 by Becca Hope RN Outcome: Ongoing (Interventions Implemented as Appropriate) * Plan of Care - Becca Hope RN - 06/07/2024 3:07 AM EST OUTCOME EVALUATION NOTE: OUTCOME SUMMARY: Patient A&Ox4 on RA. Denies any CP or SOB. Urinal at bedside, bm ambulates to toilet. Independent in room and in hallways. Called appropriately all evening. Plan Moving Forward Q4 VS Finger stick Q4Hr INDIVIDUALIZED FALL PREVENTION INTERVENTIONS: Patient-specific fall risk factors per assessment: [current deficits]: unfamiliar environment, lines/cords/wires Assistance [level of assistance required for transfers and ambulation]: independent Supervision [direct monitoring required during toileting and ADLs]: independent Surveillance [continuous indirect monitoring]: tele, pulse ox Patient-specific fall prevention interventions for sensory deficits provided: non-slip socks, clutter free environment, lighting adjusted, personal items and call jones within reach. Problem: Adult Inpatient Plan of Care Goal: Plan of Care Review Outcome: Ongoing (Interventions Implemented as Appropriate) Goal: Patient-Specific Goal (Individualized) Outcome: Ongoing (Interventions Implemented as Appropriate) Goal: Absence of Hospital-Acquired Illness or Injury Outcome: Ongoing (Interventions Implemented as Appropriate) Goal: Optimal Comfort and Wellbeing Outcome: Ongoing (Interventions Implemented as Appropriate) Goal: Readiness for Transition of Care Outcome: Ongoing (Interventions Implemented as Appropriate) Problem: Arrhythmia/Dysrhythmia (Cardiac Catheterization) Goal: Stable Heart Rate and Rhythm Outcome: Ongoing (Interventions Implemented as Appropriate) Problem: Bleeding (Cardiac Catheterization) Goal: Absence of Bleeding Outcome: Ongoing (Interventions Implemented as Appropriate) Problem: Embolism (Cardiac Catheterization) Goal: Absence of Embolism Signs and Symptoms Outcome: Ongoing (Interventions Implemented as Appropriate) * Consult Note - Alejandra Baumann APRN - 06/06/2024 12:24 PM EST Diabetes Management Team Inpatient Consult Date of Consultation: 06/06/2024 Consult Requested by:Cardiology S2 Reason for Consultation:69 y.o. male with CAD, ischemic cardiomyopathy with HFrEF (~30% EF), prior MS with stents, DM type 2, HTN, HLD, active smoker, presented with anterior STEMI. Angiography revealed severe multivessel CAD with extensive calcification and YUE 3 flow in all vessels, without a clear culprit lesion. Currently pain-free after TNK, Plavix, ASA, and heparin, with mildly elevated LVEDP at 40 mmHg and mild volume overload. We are being consulted to assist with diabetes management to optimize glucose prior to CABG and to provide a review of [facility] diabetes care. Diabetes History: George Mehta has had diabetes for years, more than 10 years Current outpatient diabetes regimen: Diabetes Provider: PCP Medications: Jardiance 25mg, Glipizide 10mg, Tresiba U 100 50 units nightly, Humalog 20 units TID ac, metformin 1000mg BID Monitoring is done CGM Willem 2 Most recent A1C: Recent Labs 06/06/24 0333 HA1C 7.1* suggesting an average glucose of 157 mg/dL for the past 6-8 weeks. Typical diet is: no soda, no alcohol, sometimes ice cream, likes sweets Breakfast- varies - eggs with khoury or telugu muffin Lunch- turkey sandwich Supper- meat and potato or pasta and vegetable Typical exercise regimen is not regular Trouble with hypoglycemia 2-3 times weekly, has hypoglycemia awareness - shaky sweaty, queezy stomach - also CGM alarms Diabetes education: not previously Insulin administration site: stomach Compliance with insulin: forgets sometimes before a meal so will administer after his meal. Diabetes Complications Status: Eyes regular exams Kidneys:Creatinine 1.12, GFR 69 Feet: denie Sensory: denies Cardiac: CAD Last Kidney function: Lab Results Component Value Date CREATININE 1.12 06/06/2024 Last lipid panel: Lipid Panel Lab Results Component Value Date CHLPL 76 06/03/2024 HDL 39 06/03/2024 TRIG 75 06/03/2024 LDLCHOL 21 06/03/2024 Current Hospital Diabetes Care: Medications: lantus 20 units, ICR 1:10, Lispro moderate sliding scale TID Monitoring: TID Diet: CC level 2 REVIEW OF SYSTEMS: All 12 systems reviewed and negative except as noted per HPI. PMH No past medical history on file. Current Hospital Medications: insulin lispro 0-8 Units Subcutaneous TID WC furosemide 40 mg Intravenous Daily sodium chloride 0.9 % (flush) 5 mL Intravenous BID aspirin 81 mg Oral Daily carvediloL 6.25 mg Oral BID escitalopram 20 mg Oral Daily atorvastatin 80 mg Oral QPM insulin lispro 1-6 Units Subcutaneous TID AC insulin glargine (Lantus;Semglee) (100 unit/mL) subcutaneous injection 0.2 Units/kg/day Subcutaneous Daily Infusions: heparin (porcine) infusion 1,400 Units/hr (06/06/24 2607) PRN: insulin lispro, potassium chloride ER OR potassium chloride ER, sodium chloride 0.9 % (flush), lidocaine, nitroGLYcerin, atropine, heparin (porcine) infusion AND heparin (porcine), glucose 40% oral geL OR dextrose OR glucagon Allergy: No Known Allergies Social history: Social History Tobacco Use Smoking status: Every Day Current packs/day: 0.25 Types: Cigarettes Smokeless tobacco: Never Family history: No family history on file. Vitals BP 125/70 Pulse 61 Temp 36.6 ??C (97.9 ??F) Resp 14 Ht 167.6 cm (5' 6) Wt 94.2 kg(207 lb 10.8 oz) SpO2 95% BMI 33.52 kg/m?? Physical Exam: Gen: NAD, talking in clear sentences. Laying in bed comfortably Respiratory: breathing non-labored on RA Abd: Soft, non-distended, non-tender x4 quadrants SKIN: No open areas, bruising appreciated or redness to both feet Extremities: sensation intact, Distal pulses intact Neuro: Moving all extremities. Grossly non-focal Labs: Lab Results Component Value Date BUN 27 (H) 06/06/2024 CREATININE 1.12 06/06/2024 GLUCOSE 190 06/06/2024 ESTGFR 72 06/06/2024 No results found for: HA1C No results found for: MICROALBUR Lab Results Component Value Date CHLPL 76 06/03/2024 Lab Results Component Value Date HDL 39 06/03/2024 Lab Results Component Value Date LDLCHOL 21 06/03/2024 Lab Results Component Value Date TRIG 75 06/03/2024 No results found for: CHOLHDL Assessment: 69 y.o. male with CAD, ischemic cardiomyopathy with HFrEF (~30% EF), prior MS with stents, DM type 2, HTN, HLD, active smoker, presented with anterior STEMI. Angiography revealed severe multivessel CAD with extensive calcification and YUE 3 flow in all vessels, without a clear culprit lesion. Diabetes suboptimally controlled and complicated by hospitalization. A1C updated and 7.1% suggesting an average glucose of 157 mg/dL for the past 6-8 weeks.Currently has variability of blood glucose levels while hospitalized requiring adjustment of insulin regimen and DM medications. Weight based glargine for George calculates to 18 to 32 units. His home dose of long acting insulin is 50 units with short acting insulin 20 units TID ac for a TDD of 80 units daily though with regular hypoglycemiea. What I believe we are seeing today are blood sugars rising now that his degludec insulin (duration of action > 40 hours) is out of his system. Suggest we increase lantus to 33 units (weight based), adding 13 units now and adjusting carb ratio to 1:7 (based on rule of 500 with 66 units as TDD). He also would benefit from q 4 hour corrections using moderate scale until we have a better understanding of his insulin requirements. Plan: 1. Lantus 13 units stat, --> Tomorrow: 33 units daily 2. Meal-associated Lispro 1unit: 7 gm carb ratio for each meal 3. Correction Lispro, ISF 20 4. Diet: CC 5. Monitoring: INCREASE to q 4 hours Discharge Considerations: Regular hypoglycemia at home, has CGM Medications - Outpatient treatment regimen recommendations pending based on the hospital course. Monitoring - CGM Diet - low fat/low carb diet Exercise - weight-bearing exercise 30 min/day, as tolerated Thank you for allowing us to provide care for your patient Alejandra Baumann APRN Endocrinology Diabetes Management Service Pager: [phone] Weekends please page [phone] 80 minute visit was spent in counseling on diabetes and treatment plan, reviewing all glucose and insulin data as well as relevant laboratory results with the patient and in the coordination of care on the inpatient unit. * Plan of Care - Fay Rich RN - 06/05/2024 6:40 PM EDT OUTCOME EVALUATION NOTE: OUTCOME SUMMARY: Uneventful shift. Patient A&Ox4. No complaints of CP/SOB. 100% VPaced on tele, HR ranging from 60's-90's; see scanned docs. O2 sat WDL, satting from 91% and above on RA . Ambulated independently within the halls throughout shift. Hepp gtt continued per protocol. K replaced per protocol, see MARand results. See flowsheet for I+O's and safety rounding. Patient is able to make needs known and call jones within reach. PLAN MOVING FORWARD: Monitor Tele, Monitor UFH, K protocol, Awaiting cardiac MRI planned for 06/07, Continue ABG workup,D/C Planning INDIVIDUALIZED FALL PREVENTION INTERVENTIONS: Patient-specific fall risk factors per assessment: [current deficits]: Unfamiliar surroundings, IV lines, EKG Wires, Assistance [level of assistance required for transfers and ambulation]: Independent Supervision [direct monitoring required during toileting and ADLs]: Independent Surveillance [continuous indirect monitoring]: Continuous Telemetry, Pulse Oxygen Probe Patient-specific fall prevention interventions for sensory deficits provided, if applicable: Purposeful Rounding, Hourly Rounding, Non-skid shoes or socks when OOB, Use of Assistance Devices, Call Jones Within Reach, Room Near Nurses Station, Door Open, Light Adjusted for Specific Tasks, Person Items Within Reach, Bed in Lowest and Locked Position CARE PLAN GOAL OUTCOME EVALUATION: Problem: Adult Inpatient Plan of Care Goal: Plan of Care Review Outcome: Ongoing (Interventions Implemented as Appropriate) Goal: Patient-Specific Goal (Individualized) Outcome: Ongoing (Interventions Implemented as Appropriate) Goal: Absence of Hospital-Acquired Illness or Injury Outcome: Ongoing (Interventions Implemented as Appropriate) Goal: Optimal Comfort and Wellbeing Outcome: Ongoing (Interventions Implemented as Appropriate) Goal: Readiness for Transition of Care Outcome: Ongoing (Interventions Implemented as Appropriate) Problem: Arrhythmia/Dysrhythmia (Cardiac Catheterization) Goal: Stable Heart Rate and Rhythm Outcome: Ongoing (Interventions Implemented as Appropriate) Problem: Bleeding (Cardiac Catheterization) Goal: Absence of Bleeding Outcome: Ongoing (Interventions Implemented as Appropriate) Problem: Embolism (Cardiac Catheterization) Goal: Absence of Embolism Signs and Symptoms Outcome: Ongoing (Interventions Implemented as Appropriate) * Plan of Care - Migel Javier RN - 06/05/2024 6:33 AM EDT OUTCOME EVALUATION NOTE: OUTCOME SUMMARY: Patient had an uneventful shift, AOx4, no reports of CP or SOB. Denies pain. Remains on RA. Ambulated independently to bathroom. Vpaced on tele. See scanned docs. Heparin gtt @ 1,400units/hr, therapeutic x2. K+ protocol utilized. PPM device info for MRI scanned in, see notes. PIV dressing reinforced. Left forearm skin tear redressed d/t dressing saturated with dried drainage. Few apneic episodes overnight, desats into mid to high 80's. PLAN MOVING FORWARD: [facility] draws w/ AM labs. Continue with CT surgery eligibility/viability criteria, see CT team notes. Continue to actively monitor. D/C planning as appropriate. INDIVIDUALIZED FALL PREVENTION INTERVENTIONS: Patient-specific fall risk factors per assessment: [current deficits]: IV tubing, Tele wires, unfamiliar environment Assistance [level of assistance required for transfers and ambulation]: ind Supervision [direct monitoring required during toileting and ADLs]: ind Surveillance [continuous indirect monitoring]: Tele, purposeful rounding, call jones in reach Patient-specific fall prevention interventions for sensory deficits provided, if applicable: Room near unit station, Door open, Non-skid socks on when OOB, Lighting adjusted for specific task/activites,Bed in lowest position. CARE PLAN GOAL OUTCOME EVALUATION: Ongoing Problem: Adult Inpatient Plan of Care Goal: Plan of Care Review 06/05/2024 0632 by Migel Javier RN Outcome: Ongoing (Interventions Implemented as Appropriate) 06/05/2024631 by Migel Javier RN Outcome: Ongoing (Interventions Implemented as Appropriate) Goal: Patient-Specific Goal (Individualized) 06/05/2024631 by Migel Javier RN Outcome: Ongoing (Interventions Implemented as Appropriate) 06/05/2024631 by Migel Javier RN Outcome: Ongoing (Interventions Implemented as Appropriate) Goal: Absence of Hospital-Acquired Illness or Injury 06/05/2024631 by Migel Javier RN Outcome: Ongoing (Interventions Implemented as Appropriate) 06/05/2024631 by Migel Javier RN Outcome: Ongoing (Interventions Implemented as Appropriate) Goal: Optimal Comfort and Wellbeing 06/05/2024631 by Migel Javier RN Outcome: Ongoing (Interventions Implemented as Appropriate) 06/05/2024631 by Migel Javier RN Outcome: Ongoing (Interventions Implemented as Appropriate) Goal: Readiness for Transition of Care 06/05/2024631 by Migel Javier RN Outcome: Ongoing (Interventions Implemented as Appropriate) 06/05/2024631 by Migel Javier RN Outcome: Ongoing (Interventions Implemented as Appropriate) Problem: Arrhythmia/Dysrhythmia (Cardiac Catheterization) Goal: Stable Heart Rate and Rhythm 06/05/2024631 by Migel Javier RN Outcome: Ongoing (Interventions Implemented as Appropriate) 06/05/2024631 by Migel Javier RN Outcome: Ongoing (Interventions Implemented as Appropriate) Problem: Bleeding (Cardiac Catheterization) Goal: Absence of Bleeding 06/05/2024631 by Migel Javier RN Outcome: Ongoing (Interventions Implemented as Appropriate) 06/05/2024631 by Migel Javier RN Outcome: Ongoing (Interventions Implemented as Appropriate) Problem: Contrast-Induced Injury Risk (Cardiac Catheterization) Goal: Absence of Contrast-Induced Injury 06/05/2024631 by Migel Javier RN Outcome: Outcome (s) achieved 06/05/2024631 by Migel Javier RN Outcome: Ongoing (Interventions Implemented as Appropriate) Problem: Embolism (Cardiac Catheterization) Goal: Absence of Embolism Signs and Symptoms 06/05/2024631 by Migel Javier RN Outcome: Ongoing (Interventions Implemented as Appropriate) 06/05/2024631 by Migel Javier RN Outcome: Ongoing (Interventions Implemented as Appropriate) Problem: Ongoing Anesthesia/Sedation Effects (Cardiac Catheterization) Goal: Anesthesia/Sedation Recovery 06/05/2024631 by Migel Javier RN Outcome: Outcome (s) achieved 06/05/2024631 by Migel Javier RN Outcome: Ongoing (Interventions Implemented as Appropriate) Problem: Pain (Cardiac Catheterization) Goal: Acceptable Pain Control 06/05/2024631 by Migel Javier RN Outcome: Outcome (s) achieved 06/05/2024631 by Migel Javier RN Outcome: Ongoing (Interventions Implemented as Appropriate) Problem: Vascular Access Protection (Cardiac Catheterization) Goal: Absence of Vascular Access Complication 06/05/2024631 by Migel Javier RN Outcome: Outcome (s) achieved 06/05/2024631 by Migel Javier RN Outcome: Ongoing (Interventions Implemented as Appropriate) * Plan of Care - Dede Watson RN - 06/04/2024 2:52 PM EDT OUTCOME EVALUATION NOTE: OUTCOME SUMMARY: Pt is on heparin gtt with daily UFH labs. His R radial side cdi. He suppose to go for cardiac MRI today, but due to lock of information about his pacemaker model , test was postpone until Friday. PLAN MOVING FORWARD: To gather more information about his conditions to determine if he is suitable for surgery. INDIVIDUALIZED FALL PREVENTION INTERVENTIONS: Patient-specific fall risk factors per assessment: [current deficits]: medical equipment (iv pole). Assistance [level of assistance required for transfers and ambulation]: up ad doroteo Supervision [direct monitoring required during toileting and ADLs]: independent Surveillance [continuous indirect monitoring]: telemetry Patient-specific fall prevention interventions for sensory deficits provided, if applicable: CPG GOAL OUTCOME EVALUATION: ongoing * Consult Note - Paula Treviño PA - 06/03/2024 1:31 PM EDT Cardiac Surgery Consult Note George Mehta is seen at the request of Dr. Fofana for the evaluation of multivessel CAD. HPI: George Mehta is a 69 y.o. male with a PMHx of previous MS s/p PCI x3, ICM/HFrEF (LVEF 30%) s/p ICD, DMII, HTN, HLD, remote melanoma, and smoker who presented to [facility] last night via EMS after developing acute, severe chest pain while watching TV. Patient was ruled in for STEMI, given TNK, ASA, plavix, heparin gtt, and sent to [facility] for coronary angiography. LHC demonstrated severely calcified left coronary system with notable LCx 75/80% lesions and JOB COST ESTIMATOR OM1 with ISR with collateral retrograde filling, LAD heavily calcified. IVUS was attempted but unable to pass beyond proximal vessels. No culprit lesion identified. Lasix 40 was given during the procedure. Heparin gtt was continued after. TTE was completed today which demonstrated LVEF 25-30%, grade II diastolic dysfunction, no significant valve disease. Cardiac surgery has been consulted to assess for CABG vs PCI. Patient has not had any chest pain since admission. Currently without complaint. Denies SOB, dizziness, lightheadedness, LE edema, varicosities, or vein stripping. Review of Symptoms: Constitutional: Negative HEEN: Negative Mouth/throat: Negative Cardiac: + chest pain Vascular: Negative Pulmonary: Negative GI: Negative : Negative Musculoskeletal: Negative Neuro: Negative Hematologic: Negative Integumentary: Negative Problem List: Patient Active Problem List Diagnosis STEMI (ST elevation myocardial infarction) Past Medical History: previous MS s/p PCI x3 ICM/HFrEF (LVEF 30%) s/p ICD DMII HTN HLD remote melanoma s/p excision smoker Past Surgical History: S/p AICD S/p melanoma excision Social History: Social History Tobacco Use Smoking status: Every Day Current packs/day: 0.25 Types: Cigarettes Smokeless tobacco: Never Social History Social History Narrative Not on file Family History: No family history on file. Meds Prior to Admission: No medications prior to admission. Current Meds: Scheduled Meds: sodium chloride 0.9 % (flush) 5 mL Intravenous BID aspirin 81 mg Oral Daily carvediloL 6.25 mg Oral BID escitalopram 20 mg Oral Daily atorvastatin 80 mg Oral QPM insulin lispro 1-6 Units Subcutaneous TID AC insulin glargine (Lantus;Semglee) (100 unit/mL) subcutaneous injection 0.2 Units/kg/day Subcutaneous Daily furosemide 40 mg Intravenous BID Continuous Infusions: heparin (porcine) infusion 1,000 Units/hr (06/03/24 4003) PRN Meds:.sodium chloride 0.9 % (flush), lidocaine, nitroGLYcerin, atropine, heparin (porcine) infusion AND heparin (porcine), glucose 40% oral geL OR dextrose OR glucagon Allergies: No Known Allergies Physical Exam: BP 112/66 (BP Location (NBP): Left arm, Patient Position: Sitting) Pulse 66 Temp 36.4 ??C (97.5??F) (Oral) Resp 18 Ht 167.6 cm (5' 6) Wt 97.1 kg (214 lb) SpO2 96% BMI 34.54 kg/m?? General: no acute distress, in bed HEENT: EMOI, visible dental caries Pulm: non-labored, inspiratory wheeze on left Cardiac: regular rate and rhythm, without murmur, gallop, or rub Vascular: no edema, no varicosities, palpable pulses bilateral extremities, no carotid bruits Abd: soft, non-tender, non-distended Integ: warm, pink without rashes or lesions. Old scar on top of head MSKL: symmetrical UE/LE strength, no deformity Neuro: A&Ox4, no focal deficits Psych: pleasant, appropriate behavior Diagnostics: Lab Results Component Value Date WBC 11.16 (H) 06/03/2024 RBC 5.09 06/03/2024 HGB 15.0 06/03/2024 HCT 47.4 06/03/2024 PLATELET 217 06/03/2024 Recent Labs 06/03/24 0213 INR 1.0 Lab Results Component Value Date NA 139 06/03/2024 K 4.2 06/03/2024 CL 101 06/03/2024 CO2 26 06/03/2024 BUN 20 06/03/2024 CREATININE 1.13 06/03/2024 CXR: IMPRESSION No radiographically evident acute cardiopulmonary process. ECHO: 06/03 -Left ventricular systolic function is severely reduced. [...] a fellow performed study of today's date). CATH: 06/02 Coronary angiography revealed small non dominant RCA with mild to moderate grade disease. The left coronary system was dominant, and heavily calcified with prior stents in the LAD and OM. The LM bifurcates in the LAD and LCX which are both heavily calcified. 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 Distal to this, there is a heavily calcified 80% lesion prior to a bifurcating OM2 which is large. OM1 appears to be a JOB COST ESTIMATOR, with in stentrestenosis and fills retrograde via L > L collaterals. The LAD is heavily calcified extending from the proximal LAD into the mid LAD beyond an involved Diagonal branch artery. There appears to be YUE 3 flow in all vessels with no obvious culprit lesion. We performed IVU of the LM, LAD and LCX revealing 360 Ca in some areas with calcified nodules in others. The IVUS catheter would not extend be yond the proximal LCX or LAD due to 360 calcium. Assessment and Plan: 69 y.o. male admitted with STEMI s/p TNK, [facility] showing multivessel CAD including ISR, no culprit lesion identified, chronic combined HF secondary to ICM with LVEF 25-30% and ICD - Will move forward with workup for CABG per Dr. Loja. Given degree of cardiomyopathy, please order viability study/cardiac MR to further assess. Discussed with cardiology team. - Will order CT chest noncon - Carotid dopplers - Cont medical management per primary team. On ASA, statin, coreg. - Plavix and TNK given 06/02. Okto continue heparin from a surgical standpoint. - Recommend ongoing glucose optimization - Smoking cessation encouraged Appreciate the consult to our service. Signed: Paula Treviño PA-C [facility] Section of Cardiac Surgery Date: 06/03/2024 * Initial Assessments - Catina Estrada MSW - 06/03/2024 10:32 AM EDT Office of Care Management Initial Assessment CHINA Humphrey reviewed record and discussed patient with Care Team. Source of Information: Team, bedside nurse, medical record, and Patient BUSINESS INTELLIGENCE ANALYST Introduced self/reviewed role; services accepted. Admitted From: Transfer from another hospital Location: [facility] Reason for Hospitalization: Chest Pain while watching TV, doctors said I had a heart attack Past medical History: No past medical history on file. Hospitalizations Within the Past 30 Days: no previous admission in last 30 days Current Decision-Making Capacity: Self If AD's have not been completed the following surrogate would be surrogate decision maker per [place] surrogate decision making law. (Only good for 180 days) Any patient receiving care in [place] must abide by [place] law. The hierarchy for surrogate decision making is: (a) Patient???s spouse or civil union partner unless there is a divorce proceeding, separation agreement, or restraining order limiting that person???s relationship with the patient. Mandy Nuno (spouse) (b) Any adult son or daughter of the patient. (c) Either parent of the patient. (d) Any adult brother or sister of the patient. (e) Any adult grandchild of the patient. (f) Any grandparent of the patient. (g) Any adult aunt, uncle, niece, or nephew of the patient. (h) A close friend of the patient. (i) The agent with financial power of trademark attorney or a conservator appointed in accordance with RSA 464-A. (j) The guardian of the patient???s estate. Advance Care Planning: Attempt Cardiopulmonary Resuscitation - Inpatient <no information> -Advanced Directive: No, declines Current Coping/Education/Information Needs: None noted Current Functional Ability: Independent Functional Status Prior to Admission: Independent Prior ADLs & IADLs: Independent with all ADLs & IADLs Home Environment: Others in the home: spouse, pet(s) (Pt lives w/ his , Mandy, and 2 dogs Zuleika & Kaley). Current Living Arrangements: home/apartment/condo. Accessibility Concerns:1st floor apt. No NADER. No concerns.. In the last 12 months, was there a time when you were not able to pay the mortgage or rent on time?: No In the past 12 months, how many times have you moved where you were living?: 1 At any time in the past 12 months, were you homeless or living in a care home (including now)?: No In the past 12 months has the electric, gas, oil, or water [employer] threatened to shut off services in your home?: No Within the past 12 months, you worried that your food would run out before you got the money to buymore.: Never true Within the past 12 months, the food you bought just didn't last and you didn't have money to get more.: Never true Resource / Environmental Concerns: Resource/Environmental Concerns: none In the past 12 months, has lack of transportation kept you from medical appointments or from getting medications?: No In the past 12 months, has lack of transportation kept you from meetings, work, or from getting things needed for daily living?: No Current DME: none, other (see comments) (Pt states he has grab bars and a shower chair in the bathroom) Home Address confirmed as: [address] [place] [address] [address] [facility] [address] Social & Family Supports: All names listed below confirmed with patient as current and correct Extended Emergency Contact Information Primary Emergency Contact: Mandy Mehta Mobile Relation: Spouse Current Care Provided by: self Provides Primary Care For: no one Caregiver if needed: none Quality of Family relationships: helpful, involved, supportive Community Resources being provided currently: none Behavioral Health History: None noted Substance Use/Abuse confirmed: Social History Tobacco Use Smoking Status Every Day Current packs/day: 0.25 Types: Cigarettes Smokeless Tobacco Never In the past year have you used an illegal drug or used a prescription medication for non-medical reasons?: No 0 No problems reported 1-2 Low level 3-5 Moderate level 6-8 Substantial level 9- 10 Severe level In the past year have you had 5 or more drinks a day containing alcohol?: No 0 to 7 points: Low risk 8 to 15 points: Medium risk 16 to 19 points: High risk 20 to 40 points: Addiction likely Other Pertinent/Service Specific Information: Health/Prescription Coverage: Primary Insurance: [employer] MANAGED MEDICARE Payor: [employer]AR MANAGED MEDICARE / Plan: [facility] MANAGED MEDICARE COMPLETE / Product Type: *No Product type* / Secondary Insurance: N/A ; Prescription Coverage: Yes Preferred Pharmacy: [id number] - [facility], [place] - [address] [facility] [address] [place] [id number] [place] Status: Patient is a : No Primary Care Provider confirmed: Mauro Berumen MD [phone] Patient/Caregiver Goals of Treatment: Potential Needs for Transition of Care: unable to assess Agency Referrals: TBD Transportation: no concerns Transportation Anticipated: family or friend will provide (Neighbor or ALL will provide a ride) Concerns to be Addressed: unable to assess Assessment: Patient is admitted to Cardiology service for STEMI. Will need VNA services if moving forward w/ CABG. Plan going forward: Pending hospital course. CABG vs. PCI Care Management team will continue to follow and assist with discharge planing and coordination of care as indicated. [facility], ext. [phone] * Brief Op Note - Angeles Gaxiola PA - 06/03/2024 12:23 AM EDT Preliminary Cardiac Catheterization Procedure Note: Patient Name: George Mehta : [id number] MR#: [id number] Case Date: 06/02/2024 - 06/03/2024 Configuration Release Manager: Surgeons and Role: * Nuha Shen MD - Primary * Angeles Gaxiola PA - Physician Radio Engineer Preoperative diagnosis: STEMI Postoperative diagnosis: * STEMI * Procedure(s) performed: RRA access [facility] Coronary angiogram IVUS LM/LAD/LCX Access: 6 Fr RRA A time-out was conducted prior to the start of the procedure to verify the correct patient and procedure, procedure location, and all relevant critical information. Preliminary findings: 69 year old current smoker (1-2 cigarette's per day), DM type 2, hypertension, dyslipidemia, ICD for HFrEF/low EF (~30%), CAD with prior MS and 3 stents historically (in [place]) who presented to [facility] with 1 hour of rest chest pain while watching TV. ECG concerning for anterior STEMI. Coronary angiography revealed small non dominant RCA with mild to moderate grade disease. The left coronary system was dominant, and heavily calcified with prior stents in the LAD and OM. The LM bifurcates in the LAD and LCX which are both heavily calcified. 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 Distal to this, there is a heavily calcified 80% lesion prior to a bifurcating OM2 which is large. OM1 appears to be a JOB COST ESTIMATOR, with in stentrestenosis and fills retrograde via L > L collaterals. The LAD is heavily calcified extending from the proximal LAD into the mid LAD beyond an involved Diagonal branch artery. There appears to be YUE 3 flow in all vessels with no obvious culprit lesion. We performed IVU of the LM, LAD and LCX revealing 360 Ca in some areas with calcified nodules in others. The IVUS catheter would not extend be yond the proximal LCX or LAD due to 360 calcium. The patient is currently pain free following TNK, plavix, aspirin and heparin. 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 Recommendations: surgical consult for possible open revascularization; if not a surgical candidate,could potentially be considered for high risk PCI with atherectomy if in the best interest of the patient The patient tolerated the procedures smoothly and was transferred from the cardiac catheterization lab to the next level of care in stable condition. No evident early complications. Full report to follow. HENOK Rogers documented in this encounter Plan of Treatment Scheduled Orders Name Type Priority Associated Diagnoses Orde r Schedule Prothrombin Time Lab Routine Release Upon Ordering for 1 Occurrences starting 06/14/2024 APTT Lab Routine Release Upon O rdering for 1 Occurrences starting 06/14/2024 Scheduled Referrals Name Type Priority Associated Diagnoses Orde r Schedule Referral to Home Health Outpatient Referral Routine S/P CABG x 3 Ordered: 06/21/2024 Referral to Cardiac Rehab Outpatient Referral Routine S/P CABG x 3 Ordered: 06/21/2024 documented as of this encounter Procedures Procedure Name Priority Date/Time Associated Diagnosis Comments POC, GLUCOSE Routine 06/21/2024 3:51 AM EST BASIC METABOLIC PANEL Routine 06/21/2024 2:09 AM EST POC, GLUCOSE Routine 06/21/2024 12:04 AM EST POC, GLUCOSE Routine 06/20/2024 11:14 PM EST POC, GLUCOSE Routine 06/20/2024 7:16 PM EST POC, GLUCOSE Routine 06/20/2024 3:39 PM EST POC, GLUCOSE Routine 06/20/2024 12:02 PM EST POC, GLUCOSE Routine 06/20/2024 7:10 AM EST BASIC METABOLIC PANEL Routine 06/20/2024 2:28 AM EST POC, GLUCOSE Routine 06/20/2024 12:32 AM EST POC, GLUCOSE Routine 06/20/2024 12:02 AM EST POC, GLUCOSE Routine 06/19/2024 8:15 PM EST POC, GLUCOSE Routine 06/19/2024 6:01 PM EST POC, GLUCOSE Routine 06/19/2024 4:51 PM EST POC, GLUCOSE Routine 06/19/2024 12:37 PM EST POC, GLUCOSE Routine 06/19/2024 11:20 AM EST POC, GLUCOSE Routine 06/19/2024 7:21 AM EST POC, GLUCOSE Routine 06/19/2024 4:52 AM EST POC, GLUCOSE Routine 06/19/2024 4:13 AM EST POC, GLUCOSE Routine 06/19/2024 3:48 AM EST BASIC METABOLIC PANEL Routine 06/19/2024 3:44 AM EST POC, GLUCOSE Routine 06/19/2024 12:23 AM EST POC, GLUCOSE Routine 06/18/2024 11:08 PM EST POC, GLUCOSE Routine 06/18/2024 7:32 PM EST POC, GLUCOSE Routine 06/18/2024 6:08 PM EST POC, GLUCOSE Routine 06/18/2024 4:17 PM EST POC, GLUCOSE Routine 06/18/2024 12:09 PM EST POC, GLUCOSE Routine 06/18/2024 7:49 AM EST BASIC METABOLIC PANEL Routine 06/18/2024 4:19 AM EST POC, GLUCOSE Routine 06/18/2024 3:50 AM EST POC, GLUCOSE Routine 06/17/2024 11:10 PM EST POC, GLUCOSE Routine 06/17/2024 7:54 PM EST POC, GLUCOSE Routine 06/17/2024 4:07 PM EST XR CHEST PA AND LATERAL Routine 06/17/20 1:46 PM EST POC, GLUCOSE Routine 06/17/2024 11:04 AM EST POC, GLUCOSE Routine 06/17/2024 7:49 AM EST POC, GLUCOSE Routine 06/17/2024 4:16 AM EST HEMOGRAM Routine 06/17/2024 2:39 AM EST LACTATE, WHOLE BLOOD Routine 06/17/2024 2:39 AM EST BASIC METABOLIC PANEL Routine 06/17/2024 2:39 AM EST POC, GLUCOSE Routine 06/17/2024 12:13 AM EST POC, GLUCOSE Routine 06/16/2024 7:22 PM EST POC, GLUCOSE Routine 06/16/2024 6:14 [...] SINGLE Timed 06/15/2024 1:4 8 AM EST CBC (WITH DIFF) Routine 06/15/2024 1:48 AM EST BASIC METABOLIC PANEL Routine 06/15/2024 1:48 AM EST BLOOD GAS [...] PM EST BLOOD GAS ARTERIAL POC Routine 12:15 PM EST BLOOD GAS ARTERIAL POC Routine 11:51 AM EST BLOOD GAS ARTERIAL POC Routine 11:27 AM EST PLATELET COUNT PERFORMABLE STAT 06/14/2024 11:23 AM EST SCAN, PERIPHERAL BLOOD STAT 11:23 AM EST HEMOGLOBIN AND HEMATOCRIT, BLOOD STAT 06/14/2024 11:23 AM EST PLATELET COUNT STAT 06/14/2024 11:23 AM EST BLOOD GAS ARTERIAL POC Routine 10:58 AM EST BLOOD GAS ARTERIAL POC Routine 10:26 AM EST BLOOD GAS ARTERIAL POC Routine 10:25 AM EST SURGICAL PATHOLOGY Routine 06/14/2024 9: 53 AM EST COOX, POC Routine 06/14/2024 9:00 AM EST BLOOD GAS ARTERIAL POC Routine 8:39 AM EST Unlisted Cardiac Surg Procedure (63703) 06/14/2024 7:34 AM EST 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) 06/14/2024 7:34 AM EST CAD Endoscopy W/Video-Asst Vein [place], Cabg ([id number]) 06/14/2024 7:34 AM EST CAD Cabg, Artery-Vein, Two ([id number]) 06/14/2024 7:34 AM EST CAD Cabg, Arterial, Single ([id number]) 06/14/2024 7:34 AM EST CAD TRANSESOPHAGEAL ECHOCARDIOGRAM IN THE OR Routine 06/14/2024 7:20 AM EST Coronary artery disease involving [place] coronary artery of [place] heart without angina pectoris POC, GLUCOSE Routine [...] POC, GLUCOSE Routine 06/13/2024 8:03 PM EST ABORH RECHECK STAT 06/13/2024 4:11 PM EST HEPARIN (UNFRACTIONATED) LEVEL Timed 06/13/2024 4:11 PM EST POC, GLUCOSE Routine 06/13/2024 4:09 PM EST TYPE AND SCREEN ([facility]/CGP/RAFITA) STAT 06/13/2024 11:53 AM EST POC, GLUCOSE Routine 06/13/2024 11:50 AM EST XR CHEST ONE VIEW Routine 06/13/2024 10: 35 AM EST CARDIAC CATHETERIZATION Routine 06/13/20 9:02 AM EST POTASSIUM Routine 06/13/2024 7:48 AM EST POC, GLUCOSE Routine 06/13/2024 7:41 AM EST POC, GLUCOSE Routine 06/13/2024 3:25 AM EST HEPARIN (UNFRACTIONATED) LEVEL Timed 06/13/2024 2:26 AM EST CBC (WITH DIFF) Routine 06/13/2024 2:26 AM EST MAGNESIUM Routine 06/13/2024 2:26 AM EST BASIC METABOLIC PANEL Routine 06/13/2024 2:26 AM EST POC, GLUCOSE Routine 06/12/2024 11:53 PM EST POC, GLUCOSE Routine 06/12/2024 7:32 PM EST POC, GLUCOSE Routine 06/12/2024 3:41 PM EST POTASSIUM Routine 06/12/2024 2:19 PM EST POC, GLUCOSE Routine 06/12/2024 11:21 AM EST POC, GLUCOSE Routine 06/12/2024 8:00 AM EST POC, GLUCOSE Routine 06/12/2024 4:25 AM EST HEPARIN (UNFRACTIONATED) LEVEL Timed 06/12/2024 3:03 AM EST CBC (WITH DIFF) Routine 06/12/2024 3:03 AM EST MAGNESIUM Routine 06/12/2024 3:03 AM EST BASIC METABOLIC PANEL Routine 06/12/2024 3:03 AM EST POC, GLUCOSE Routine 06/11/2024 11:56 PM EST POC, GLUCOSE Routine 06/11/2024 8:25 PM EST POC, GLUCOSE Routine 06/11/2024 4:24 PM EST POC, GLUCOSE Routine 06/11/2024 11:08 AM EST POC, GLUCOSE Routine 06/11/2024 7:48 AM EST @INSERTION OF IABP,PERCUTANEOUS Routine 06/11/2024 6:19 AM EST HEPARIN (UNFRACTIONATED) LEVEL Timed 06/11/2024 5:31 AM EST POC, GLUCOSE Routine 06/11/2024 3:57 AM EST CBC (WITH DIFF) Routine 06/11/2024 2:13 AM EST MAGNESIUM Routine 06/11/2024 2:13 AM EST BASIC METABOLIC PANEL Routine 06/11/2024 2:13 AM EST POC, GLUCOSE Routine 06/11/2024 12:50 AM EST POC, GLUCOSE Routine 06/10/2024 7:22 PM EST BLOOD GAS VENOUS STAT 06/10/2024 5:42 PM EST POC, GLUCOSE Routine 06/10/2024 5:35 PM EST POC, GLUCOSE Routine 06/10/2024 11:25 AM EST POC, GLUCOSE Routine 06/10/2024 7:46 AM EST POC, GLUCOSE Routine 06/10/2024 4:23 AM EST CBC (WITH DIFF) Routine 06/10/2024 1:55 AM EST MAGNESIUM Routine 06/10/2024 1:55 AM EST BASIC METABOLIC PANEL Routine 06/10/2024 1:55 AM EST HEPARIN (UNFRACTIONATED) LEVEL Timed 06/10/2024 1:54 AM EST POC, GLUCOSE Routine 06/10/2024 12:05 AM EST POC, GLUCOSE Routine 06/09/2024 8:36 PM EST POC, GLUCOSE Routine 06/09/2024 5:27 PM EST POC, GLUCOSE Routine 06/09/2024 11:52 AM EST POTASSIUM Routine 06/09/2024 8:25 AM EST POC, GLUCOSE Routine 06/09/2024 8:10 AM EST POC, GLUCOSE Routine 06/09/2024 4:40 AM EST HEPARIN (UNFRACTIONATED) LEVEL Timed 06/09/2024 2:12 AM EST CBC (WITH DIFF) Routine 06/09/2024 2:12 AM EST MAGNESIUM Routine 06/09/2024 2:12 AM EST BASIC METABOLIC PANEL Routine 06/09/2024 2:12 AM EST POC, GLUCOSE Routine 06/09/2024 12:34 AM EST POC, GLUCOSE Routine 06/08/2024 8:27 PM EST POC, GLUCOSE Routine 06/08/2024 4:16 PM EST POC, GLUCOSE Routine 06/08/2024 12:35 PM EST POC, GLUCOSE Routine 06/08/2024 8:10 AM EST POC, GLUCOSE Routine 06/08/2024 4:09 AM EST HEPARIN (UNFRACTIONATED) LEVEL Timed 06/08/2024 3:21 AM EST CBC (WITH DIFF) Routine 06/08/2024 3:21 AM EST MAGNESIUM Routine 06/08/2024 3:21 AM EST BASIC METABOLIC PANEL Routine 06/08/2024 3:21 AM EST POC, GLUCOSE Routine 06/07/2024 11:57 PM EST POC, GLUCOSE Routine 06/07/2024 8:05 PM EST POTASSIUM Routine 06/07/2024 5:22 PM EST POC, GLUCOSE Routine 06/07/2024 4:31 PM EST MRI CARDIAC MORPHOLOGY FUNCTION WWO CONTRAST Routine 06/07/2024 1:10 PM EST POC, GLUCOSE Routine 06/07/2024 11:05 AM EST POC, GLUCOSE Routine 06/07/2024 11:03 AM EST POTASSIUM Routine 06/07/2024 9:44 AM EST POC, GLUCOSE Routine 06/07/2024 7:45 AM EST XR CHEST PA AND LATERAL Routine 06/07/20 7:03 AM EST POC, GLUCOSE Routine 06/07/2024 4:25 AM EST HEPARIN (UNFRACTIONATED) LEVEL Timed 06/07/2024 2:41 AM EST CBC (WITH DIFF) Routine 06/07/2024 2:41 AM EST MAGNESIUM Routine 06/07/2024 2:41 AM EST BASIC METABOLIC PANEL Routine 06/07/2024 2:41 AM EST POC, GLUCOSE Routine 06/07/2024 12:08 AM EST POC, GLUCOSE Routine 06/06/2024 8:18 PM EST POC, GLUCOSE Routine 06/06/2024 3:39 PM EST POTASSIUM Routine 06/06/2024 2:37 PM EST POC, GLUCOSE Routine 06/06/2024 1:39 PM EST POC, GLUCOSE Routine 06/06/2024 11:34 AM EST POTASSIUM Routine 06/06/2024 10:17 AM EST POC, GLUCOSE Routine 06/06/2024 7:57 AM EST POC, GLUCOSE Routine 06/06/2024 6:53 AM EST HEPARIN (UNFRACTIONATED) LEVEL Timed 06/06/2024 3:33 AM EST CBC (WITH DIFF) Routine 06/06/2024 3:33 AM EST MAGNESIUM Routine 06/06/2024 3:33 AM EST HEMOGLOBIN A1C Routine 06/06/2024 3:33 AM EST BASIC METABOLIC PANEL Routine 06/06/2024 3:33 AM EST POC, GLUCOSE Routine 06/05/2024 10:31 PM EDT POC, GLUCOSE Routine 06/05/2024 4:22 PM EDT POC, GLUCOSE Routine 06/05/2024 11:34 AM EDT POTASSIUM Routine 06/05/2024 9:04 AM EDT POC, GLUCOSE Routine 06/05/2024 7:27 AM EDT HEPARIN (UNFRACTIONATED) LEVEL Timed 06/05/2024 3:44 AM EDT CBC (WITH DIFF) Routine 06/05/2024 3:44 AM EDT MAGNESIUM Routine 06/05/2024 3:44 AM EDT BASIC METABOLIC PANEL Routine 06/05/2024 3:44 AM EDT POTASSIUM Routine 06/04/2024 10:34 PM EDT POC, GLUCOSE Routine 06/04/2024 7:43 PM EDT POTASSIUM Routine 06/04/2024 4:35 PM [...] METABOLIC PANEL Routine 06/04/2024 4:38 AM EDT HEPARIN (UNFRACTIONATED) LEVEL Timed 06/03/2024 [...] HOUR PERFORMABLE STAT 06/03/2024 8:27 AM EDT POC, GLUCOSE Routine 06/03/2024 7:54 AM EDT TROPONIN-T, HIGH SENSITIVITY INITIAL PERFORMABLE STAT 06/03/2024 7:39 AM EDT TROPONIN - SERIES STAT 06/03/2024 7:3 9 AM EDT TROPONIN-T, HIGH SENSITIVITY 3 HOUR PERFORMABLE STAT 06/03/2024 5:11 AM EDT TROPONIN-T, HIGH SENSITIVITY 1 HOUR PERFORMABLE STAT 06/03/2024 3:07 AM EDT XR CHEST ONE VIEW STAT 06/03/2024 2:4 1 AM EDT TROPONIN-T, HIGH SENSITIVITY INITIAL PERFORMABLE STAT 06/03/2024 2:13 AM EDT TROPONIN - SERIES STAT 06/03/2024 2:1 3 AM EDT HEPARIN (UNFRACTIONATED) LEVEL Timed 06/03/2024 2:13 AM EDT HC PARTIAL THROMBOPLASTIN TIME Routine 06/03/2024 2:13 AM EDT PROTHROMBIN TIME Routine 06/03/2024 2:13 AM EDT CBC (WITH DIFF) Routine 06/03/2024 2:13 AM EDT PHOSPHORUS Routine 06/03/2024 2:13 AM EDT PRO-BRAIN NATRIURETIC PEPTIDE Routine 06/03/2024 2:13 AM EDT MAGNESIUM Routine 06/03/2024 2:13 AM EDT HEPATIC FUNCTION PANEL Routine 2:13 AM EDT LIPID PANEL (REFLEX DIRECT LDL) Routine 06/03/2024 2:13 AM EDT BASIC METABOLIC PANEL Routine 06/03/2024 2:13 AM EDT EKG 12-LEAD STAT 06/03/2024 1:[address] elevation myocardial infarction (STEMI), unspecified artery CARDIAC CATHETERIZATION Routine 06/03/20 12:42 AM EDT POC, GLUCOSE Routine 06/02/2024 11:31 PM EDT documented in this encounter Results * POC, GLUCOSE (06/21/2024 3:51 AM EST) [facility] Glucometer, POC 142 65 - 199 mg/dL 06/21/2024 3:51 AM EST [facility] Comment:Supplemental ranges: <140 mg/dL before meals <180 mg/dL all other times of the day. Blood CAPILLARY BLOOD / Unknown 06/21/2024 3:51 AM EST 06/21/2024 3:51 AM EST Bobby Loja MD POINT OF CARE TEST O RDERABLES [facility] [place] [address] * (ABNORMAL) Basic Metabolic Panel (06/21/2024 2:09 AM EST) Glucose 169 65 - 199 mg/dL 06/21/2024 3:[address] [facility] Comment:Glucose Concentratio n >=200 mg/dL plus symptoms is consistent with Diabetes Mellitus. Blood Urea Nitrogen 27(H) 10 - 20 mg/dL 06/21/2024 3:[address] [facility] Creatinine 1.24 0.80 - 1.50 mg/dL 06/21/2024 3:[address] [facility] Sodium 138 135 - 145 mMol/L 06/21/2024 3:[address] [facility] Potassium 4.2 3.5 - 5.0 mMol/L 06/21/2024 3:[address] [facility] Chloride 100 98 - 107 mMol/L 06/21/2024 3:[address] [facility] Carbon Dioxide 27 22 - 31 mMol/L 06/21/2024 3:[address] [facility] Anion Gap 11 5 - 15 mMol/L 06/21/2024 3:[address] [facility] Calcium 8.7 8.5 - 10.5 mg/dL 06/21/2024 3:[address] [facility] Est Glomerular Filtration Rate - Male 64 mL/min/1. 73 m?? 06/21/2024 3:[address] [facility] Comment: This patient's estimated GFR [...] AM EST 06/21/2024 2:37 AM EST Keila Hanley APRN CHEMISTRY ORDERABL ES Performing Organization Address City/[facility]/ZIP Co de Phone Number [facility] [place] [address] * POC, GLUCOSE (06/21/2024 12:04 AM EST) Glucometer, POC 157 65 - 199 mg/dL 06/21/2024 12:04 AM EST [facility] Comment:Supplemental ranges: <140 mg/dL before meals <180 mg/dL all other times of the day. Blood CAPILLARY BLOOD / Unknown 06/21/2024 12:04 AM EST 06/21/2024 12:04 AM EST Bobby Loja MD POINT OF CARE TEST O NIKA Performing Organization Address [facility] Co de Phone Number [facility] [place] [address] * POC, GLUCOSE (06/20/2024 11:14 PM EST) Glucometer, POC 67 65 - 199 mg/dL 06/20/2024 11:14 PM EST [facility] Comment:Supplemental ranges: <140 mg/dL before meals <180 mg/dL all other times of the day. Blood CAPILLARY BLOOD / Unknown 06/20/2024 11:14 PM EST 06/20/2024 11:14 PM EST Bobby Loja MD POINT OF CARE TEST O NIKA Performing Organization Address City/[facility]/ZIP Co de Phone Number [facility] [place] [address] * POC, GLUCOSE (06/20/2024 7:16 PM EST) Glucometer, POC 132 65 - 199 mg/dL 06/20/2024 7:16 PM EST [facility] Comment:Supplemental ranges: <140 mg/dL before meals <180 mg/dL all other times of the day. Blood CAPILLARY BLOOD / Unknown 06/20/2024 7:16 PM EST 06/20/2024 7:16 PM EST Bobby Loja MD POINT OF CARE TEST O NIKA Performing Organization Address City/[facility]/ZIP Co de Phone Number [facility] [place] [address] * POC, GLUCOSE (06/20/2024 3:39 PM EST) Glucometer, POC 124 65 - 199 mg/dL 06/20/2024 3:40 PM EST [facility] Comment:Supplemental ranges: <140 mg/dL before meals <180 mg/dL all other times of the day. Blood CAPILLARY BLOOD / Unknown 06/20/2024 3:39 PM EST 06/20/2024 3:40 PM EST Bobby Loja MD POINT OF CARE TEST O NIKA Performing Organization Address [facility]/ZIP Co de Phone Number [facility] [place] [address] * POC, GLUCOSE (06/20/2024 12:02 PM EST) Glucometer, POC 173 65 - 199 mg/dL 06/20/2024 12:03 PM EST [facility] Comment:Supplemental ranges: <140 mg/dL before meals <180 mg/dL all other times of the day. Blood CAPILLARY BLOOD / Unknown 06/20/2024 12:02 PM EST 06/20/2024 12:03 PM EST Bobby Loja MD POINT OF CARE TEST O NIKA [facility] [place] [address] * POC, GLUCOSE (06/20/2024 7:10 AM EST) Glucometer, POC 130 65 - 199 mg/dL 06/20/2024 7:11 AM EST [facility] Comment:Supplemental ranges: <140 mg/dL before meals <180 mg/dL all other times of the day. Blood CAPILLARY BLOOD / Unknown 06/20/2024 7:10 AM EST 06/20/2024 7:11 AM EST Bobby Loja MD POINT OF CARE TEST O NIKA [facility] [place] [address] * (ABNORMAL) Basic Metabolic Panel (06/20/2024 2:28 AM EST) Glucose 79 65 - 199 mg/dL 06/20/2024 3:[address] [facility] Comment:Glucose Concentratio n >=200 mg/dL plus symptoms is consistent with Diabetes Mellitus. Blood Urea Nitrogen 38(H) 10 - 20 mg/dL 06/20/2024 3:[address] [facility] Creatinine 1.39 0.80 - 1.50 mg/dL 06/20/2024 3:[address] [facility] Sodium 137 135 - 145 mMol/L 06/20/2024 3:[address] [facility] Potassium 3.6 3.5 - 5.0 mMol/L 06/20/2024 3:[address] [facility] Chloride 100 98 - 107 mMol/L 06/20/2024 3:[address] [facility] Carbon Dioxide 29 22 - 31 mMol/L 06/20/2024 3:[address] [facility] Anion Gap 8 5 - 15 mMol/L 06/20/2024 3:[address] [facility] Calcium 8.4(L) 8.5 - 10.5 mg/dL 06/20/2024 3:06 AM EST [facility] Est Glomerular Filtration Rate - Male 56 mL/min/1. 73 m?? 06/20/2024 3:06 AM EST [facility] Comment: This patient's estimated GFR [...] BLOOD SPECIMEN / Unknown Venipuncture / Unknown 06/20/2024 2:28 AM EST 06/20/2024 2:36 AM EST Keila Hanley APRN CHEMISTRY ORDERABL ES Performing Organization Address City/[facility]/ZIP Co de Phone Number [facility] [place] [address] * POC, GLUCOSE (06/20/2024 12:32 AM EST) Glucometer, POC 86 65 - 199 mg/dL 06/20/2024 12:32 AM EST [facility] Comment:Supplemental ranges: <140 mg/dL before meals <180 mg/dL all other times of the day. Blood CAPILLARY BLOOD / Unknown 06/20/2024 12:32 AM EST 06/20/2024 12:32 AM EST Bobby Loja MD POINT OF CARE TEST O RDERABLES [facility] [place] [address] * (ABNORMAL) POC, GLUCOSE (06/20/2024 12:02 AM EST) Glucometer, POC 59(L) 65 - 199 mg/dL 06/20/2024 12:02 AM EST [facility] Comment:Supplemental ranges: <140 mg/dL before meals <180 mg/dL all other times of the day. Blood CAPILLARY BLOOD / Unknown 06/20/2024 12:02 AM EST 06/20/2024 12:03 AM EST Bobby Loja MD POINT OF CARE TEST O NIKA Performing Organization Address City/[facility]/ZIP Co de Phone Number [facility] [place] [address] * POC, GLUCOSE (06/19/2024 8:15 PM EST) Glucometer, POC 131 65 - 199 mg/dL 06/19/2024 8:15 PM EST [facility] Comment:Supplemental ranges: <140 mg/dL before meals <180 mg/dL all other times of the day. Blood CAPILLARY BLOOD / Unknown 06/19/2024 8:15 PM EST 06/19/2024 8:15 PM EST Bobby Loja MD POINT OF CARE TEST O NIKA Performing Organization Address [facility] Co de Phone Number [facility] [place] [address] * POC, GLUCOSE (06/19/2024 6:01 PM EST) Glucometer, POC 129 65 - 199 mg/dL 06/19/2024 6:01 PM EST [facility] Comment:Supplemental ranges: <140 mg/dL before meals <180 mg/dL all other times of the day. Blood CAPILLARY BLOOD / Unknown 06/19/2024 6:01 PM EST 06/19/2024 6:02 PM EST Bobby Loja MD POINT OF CARE TEST O NIKA Performing Organization Address City/[facility]/ZIP Co de Phone Number [facility] [place] [address] * POC, GLUCOSE (06/19/2024 4:51 PM EST) Glucometer, POC 155 65 - 199 mg/dL 06/19/2024 4:51 PM EST [facility] Comment:Supplemental ranges: <140 mg/dL before meals <180 mg/dL all other times of the day. Blood CAPILLARY BLOOD / Unknown 06/19/2024 4:51 PM EST 06/19/2024 4:51 PM EST Bobby Loja MD POINT OF CARE TEST O RDERAPIETER Performing Organization Address City/[facility]/ZIP Co de Phone Number [facility] [place] [address] * POC, GLUCOSE (06/19/2024 12:37 PM EST) Glucometer, POC 136 65 - 199 mg/dL 06/19/2024 12:37 PM EST [facility] Comment:Supplemental ranges: <140 mg/dL before meals <180 mg/dL all other times of the day. Blood CAPILLARY BLOOD / Unknown 06/19/2024 12:37 PM EST 06/19/2024 12:37 PM EST Bobby Loja MD POINT OF CARE TEST O NIKA Performing Organization Address City/[facility]/ZIP Co de Phone Number [facility] [place] [address] * POC, GLUCOSE (06/19/2024 11:20 AM EST) Glucometer, POC 185 65 - 199 mg/dL 06/19/2024 11:21 AM EST [facility] Comment:Supplemental ranges: <140 mg/dL before meals <180 mg/dL all other times of the day. Blood CAPILLARY BLOOD / Unknown 06/19/2024 11:20 AM EST 06/19/2024 11:21 AM EST Bobby Loja MD POINT OF CARE TEST O NIKA [facility] [place] [address] * POC, GLUCOSE (06/19/2024 7:21 AM EST) Glucometer, POC 125 65 - 199 mg/dL 06/19/2024 7:21 AM EST [facility] Comment:Supplemental ranges: <140 mg/dL before meals <180 mg/dL all other times of the day. Blood CAPILLARY BLOOD / Unknown 06/19/2024 7:21 AM EST 06/19/2024 7:22 AM EST Bobby Loja MD POINT OF CARE TEST O NIKA Performing Organization Address City/[facility] Co de Phone Number [facility] [place] [address] * POC, GLUCOSE (06/19/2024 4:52 AM EST) Glucometer, POC 125 65 - 199 mg/dL 06/19/2024 4:52 AM EST [facility] Comment:Supplemental ranges: <140 mg/dL before meals <180 mg/dL all other times of the day. Blood CAPILLARY BLOOD / Unknown 06/19/2024 4:52 AM EST 06/19/2024 4:52 AM EST Bobby Loja MD POINT OF CARE TEST O NIKA Performing Organization Address City/[facility]/ZIP Co de Phone Number [facility] [place] [address] * POC, GLUCOSE (06/19/2024 4:13 AM EST) Glucometer, POC 67 65 - 199 mg/dL 06/19/2024 4:13 AM EST [facility] Comment:Supplemental ranges: <140 mg/dL before meals <180 mg/dL all other times of the day. Blood CAPILLARY BLOOD / Unknown 06/19/2024 4:13 AM EST 06/19/2024 4:13 AM EST Bobby Loja MD POINT OF CARE TEST O NIKA Performing Organization Address City/[facility]/ZIP Co de Phone Number [facility] [place] [address] * (ABNORMAL) POC, GLUCOSE (06/19/2024 3:48 AM EST) Glucometer, POC 51(LLL) 65 - 199 mg/dL 06/19/2024 3:48 AM EST [facility] Comment:Supplemental ranges: <140 mg/dL before meals <180 mg/dL all other times of the day. Blood CAPILLARY BLOOD / Unknown 06/19/2024 3:48 AM EST 06/19/2024 3:48 AM EST Bobby Loja MD POINT OF CARE TEST O NIKA Performing Organization Address [facility] Co de Phone Number [facility] [place] [address] * (ABNORMAL) Basic Metabolic Panel (06/19/2024 3:44 AM EST) Glucose 53(LLL) 65 - 199 mg/dL 06/19/2024 4:[address] [facility] Comment:Glucose Concentratio n >=200 mg/dL plus symptoms is consistent with Diabetes Mellitus. Blood Urea Nitrogen 42(H) 10 - 20 mg/dL 06/19/2024 4:[address] [facility] Creatinine 1.29 0.80 - 1.50 mg/dL 06/19/2024 4:[address] [facility] Sodium 138 135 - 145 mMol/L 06/19/2024 4:[address] [facility] Potassium 3.6 3.5 - 5.0 mMol/L 06/19/2024 4:[address] [facility] Chloride 100 98 - 107 mMol/L 06/19/2024 4:[address] [facility] Carbon Dioxide 29 22 - 31 mMol/L 06/19/2024 4:[address] [facility] Anion Gap 9 5 - 15 mMol/L 06/19/2024 4:48 AM EST [facility] Calcium 8.8 8.5 - 10.5 mg/dL 06/19/2024 4:48 AM EST [facility] Est Glomerular Filtration Rate - Male 61 mL/min/1. 73 m?? 06/19/2024 4:48 AM EST [facility] Comment: This patient's estimated GFR [...] BLOOD SPECIMEN / Unknown Venipuncture / Unknown 06/19/2024 3:44 AM EST 06/19/2024 3:51 AM EST Keila Hanley APRN CHEMISTRY ORDERABL ES [facility] [place] [address] * POC, GLUCOSE (06/19/2024 12:23 AM EST) [facility] Signature Glucometer, POC 82 65 - 199 mg/dL 06/19/2024 12:23 AM EST [facility] Comment:Supplemental ranges: <140 mg/dL before meals <180 mg/dL all other times of the day. Blood CAPILLARY BLOOD / Unknown 06/19/2024 12:23 AM EST 06/19/2024 12:23 AM EST Bobby Loja MD POINT OF CARE TEST O RDERABLES [facility] [place] [address] * POC, GLUCOSE (06/18/2024 11:08 PM EST) Glucometer, POC 73 65 - 199 mg/dL 06/18/2024 11:08 PM EST [facility] Comment:Supplemental ranges: <140 mg/dL before meals <180 mg/dL all other times of the day. Blood CAPILLARY BLOOD / Unknown 06/18/2024 11:08 PM EST 06/18/2024 11:08 PM EST Bobby Loja MD POINT OF CARE TEST O NIKA Performing Organization Address City/[facility]/ZIP Co de Phone Number [facility] [place] [address] * POC, GLUCOSE (06/18/2024 7:32 PM EST) Glucometer, POC 167 65 - 199 mg/dL 06/18/2024 7:32 PM EST [facility] Comment:Supplemental ranges: <140 mg/dL before meals <180 mg/dL all other times of the day. Blood CAPILLARY BLOOD / Unknown 06/18/2024 7:32 PM EST 06/18/2024 7:32 PM EST Bobby Loja MD POINT OF CARE TEST O NIKA Performing Organization Address City/[facility]/ZIP Co de Phone Number [facility] [place] [address] * POC, GLUCOSE (06/18/2024 6:08 PM EST) Glucometer, POC 140 65 - 199 mg/dL 06/18/2024 6:09 PM EST [facility] Comment:Supplemental ranges: <140 mg/dL before meals <180 mg/dL all other times of the day. Blood CAPILLARY BLOOD / Unknown 06/18/2024 6:08 PM EST 06/18/2024 6:09 PM EST Bobby Loja MD POINT OF CARE TEST O NIKA [facility] [place] [address] * POC, GLUCOSE (06/18/2024 4:17 PM EST) Glucometer, POC 144 65 - 199 mg/dL 06/18/2024 4:17 PM EST [facility] Comment:Supplemental ranges: <140 mg/dL before meals <180 mg/dL all other times of the day. Blood CAPILLARY BLOOD / Unknown 06/18/2024 4:17 PM EST 06/18/2024 4:17 PM EST Bobby Loja MD POINT OF CARE TEST O NIKA Performing Organization Address City/[facility]/ZIP Co de Phone Number [facility] [place] [address] * POC, GLUCOSE (06/18/2024 12:09 PM EST) Glucometer, POC 180 65 - 199 mg/dL 06/18/2024 12:09 PM EST [facility] Comment:Supplemental ranges: <140 mg/dL before meals <180 mg/dL all other times of the day. Blood CAPILLARY BLOOD / Unknown 06/18/2024 12:09 PM EST 06/18/2024 12:09 PM EST Bobby Loja MD POINT OF CARE TEST Abimael MAHER Performing Organization Address City/[facility]/ZIP Co de Phone Number [facility] [place] [address] * POC, GLUCOSE (06/18/2024 7:49 AM EST) Glucometer, POC 125 65 - 199 mg/dL 06/18/2024 7:50 AM EST [facility] Comment:Supplemental ranges: <140 mg/dL before meals <180 mg/dL all other times of the day. Blood CAPILLARY BLOOD / Unknown 06/18/2024 7:49 AM EST 06/18/2024 7:50 AM EST Bobby Loja MD POINT OF CARE TEST O RDERABLES [facility] [place] [address] * (ABNORMAL) Basic Metabolic Panel (06/18/2024 4:19 AM EST) Glucose 103 65 - 199 mg/dL 06/18/2024 5:[address] [facility] Comment:Glucose Concentratio n >=200 mg/dL plus symptoms is consistent with Diabetes Mellitus. Blood Urea Nitrogen 43(H) 10 - 20 mg/dL 06/18/2024 5:[address] [facility] Creatinine 1.45 0.80 - 1.50 mg/dL 06/18/2024 5:[address] [facility] Sodium 131(L) 135 - 145 mMol/L 06/18/2024 5:[address] [facility] Potassium 4.2 3.5 - 5.0 mMol/L 06/18/2024 5:[address] [facility] Chloride 97(L) 98 - 107 mMol/L 06/18/2024 5:[address] [facility] Carbon Dioxide 25 22 - 31 mMol/L 06/18/2024 5:[address] [facility] Anion Gap 9 5 - 15 mMol/L 06/18/2024 5:[address] [facility] Calcium 8.5 8.5 - 10.5 mg/dL 06/18/2024 5:[address] [facility] Est Glomerular Filtration Rate - Male 53 mL/min/1. 73 m?? 06/18/2024 5:[address] [facility] Comment: This patient's estimated GFR [...] BLOOD SPECIMEN / Unknown Venipuncture / Unknown 06/18/2024 4:19 AM EST 06/18/2024 4:31 AM EST Keila Hanley APRN CHEMISTRY ORDERABL ES Performing Organization Address City/[facility]/ZIP Co de Phone Number [facility] [place] [address] * POC, GLUCOSE (06/18/2024 3:50 AM EST) Glucometer, POC 99 65 - 199 mg/dL 06/18/2024 3:51 AM EST [facility] Comment:Supplemental ranges: <140 mg/dL before meals <180 mg/dL all other times of the day. Blood CAPILLARY BLOOD / Unknown 06/18/2024 3:50 AM EST 06/18/2024 3:51 AM EST Bobby Loja MD POINT OF CARE TEST O NIKA Performing Organization Address [facility] Co de Phone Number [facility] [place] [address] * POC, GLUCOSE (06/17/2024 11:10 PM EST) Glucometer, POC 92 65 - 199 mg/dL 06/17/2024 11:10 PM EST [facility] Comment:Supplemental ranges: <140 mg/dL before meals <180 mg/dL all other times of the day. Blood CAPILLARY BLOOD / Unknown 06/17/2024 11:10 PM EST 06/17/2024 11:10 PM EST Bobby Loja MD POINT OF CARE TEST O NIKA Performing Organization Address City/[facility]/ZIP Co de Phone Number [facility] [place] [address] * POC, GLUCOSE (06/17/2024 7:54 PM EST) Glucometer, POC 126 65 - 199 mg/dL 06/17/2024 7:54 PM EST [facility] Comment:Supplemental ranges: <140 mg/dL before meals <180 mg/dL all other times of the day. Blood CAPILLARY BLOOD / Unknown 06/17/2024 7:54 PM EST 06/17/2024 7:54 PM EST Bobby Loja MD POINT OF CARE TEST O NIKA Performing Organization Address [facility] Co de Phone Number [facility] [place] [address] * POC, GLUCOSE (06/17/2024 4:07 PM EST) Glucometer, POC 141 65 - 199 mg/dL 06/17/2024 4:12 PM EST [facility] Comment:Supplemental ranges: <140 mg/dL before meals <180 mg/dL all other times of the day. Blood CAPILLARY BLOOD / Unknown 06/17/2024 4:07 PM EST 06/17/2024 4:12 PM EST Bobby Loja MD POINT OF CARE TEST O NIKA Performing Organization Address [facility] Co de Phone Number [facility] [place] [address] * XR Chest PA & Lateral (Generic) (06/17/2024 1:46 PM EST) WORKSTATION ID [id number] RAD Anatomical Region Laterality Modality Chest N/A [...] who have questions please contact the health healthcare corporate account director that requested your imaging first. ? Electronically signed by: Josselyn Spence MD, [facility] ([phone]), at 06/17/2024 4:49 PM Narrative 06/17/2024 4:49 [...] patients who have questions please contactthe health healthcare corporate account director that requested your imaging first. Electronically signed by: Josselyn Spence MD, [facility]([phone]), at 06/17/2024 4:49 PM Keila Hanley JOSÉ ANTONIO IMG DX ORDERABLES * (ABNORMAL) POC, GLUCOSE (06/17/2024 11:04 AM EST) Glucometer, POC 245(H) 65 - 199 mg/dL 06/17/2024 11:04 AM EST [facility] Comment:Supplemental ranges: <140 mg/dL before meals <180 mg/dL all other times of the day. Blood CAPILLARY BLOOD / Unknown 06/17/2024 11:04 AM EST 06/17/2024 11:04 AM EST Bobby Loja MD POINT OF CARE TEST O NIKA Performing Organization Address City/[facility] Co de Phone Number [facility] [place] [address] * POC, GLUCOSE (06/17/2024 7:49 AM EST) Glucometer, POC 141 65 - 199 mg/dL 06/17/2024 7:55 AM EST [facility] Comment:Supplemental ranges: <140 mg/dL before meals <180 mg/dL all other times of the day. Blood CAPILLARY BLOOD / Unknown 06/17/2024 7:49 AM EST 06/17/2024 7:55 AM EST Bobby Loja MD POINT OF CARE TEST O NIKA [facility] [place] [address] * POC, GLUCOSE (06/17/2024 4:16 AM EST) Glucometer, POC 139 65 - 199 mg/dL 06/17/2024 4:16 AM EST [facility] Comment:Supplemental ranges: <140 mg/dL before meals <180 mg/dL all other times of the day. Blood CAPILLARY BLOOD / Unknown 06/17/2024 4:16 AM EST 06/17/2024 4:17 AM EST Bobby Loja MD POINT OF CARE TEST O RDERABLES Performing Organization Address City/[facility]/ZIP Co de Phone Number [facility] [place] [address] * Lactate, Whole Blood (06/17/2024 2:39 AM EST) Pathologist [facility] Lactate, Whole Blood 1.3 0.5 - 2.2 mmol/L 06/17/2024 2:46 AM EST [facility] Blood VENOUS BLOOD SPECIMEN / Unknown Venipuncture / Unknown 06/17/2024 2:39 AM EST 06/17/2024 2:43 AM EST Bobby Loja MD CHEMISTRY ORDERABLES Performing Organization Address City/[facility] Co de Phone Number [facility] [place] [address] * (ABNORMAL) Hemogram (06/17/2024 2:39 AM EST) [facility] White Blood Cell 13.53(H) 4.00 - 9.50 x10(3)/mc L 06/17/2024 2:[address] [facility] Red Blood Cell 3.55(L) 4.58 - 5.54 x10(6)/mc L 06/17/2024 2:[address] [facility] Hemoglobin 10.8(L) 13.7 - 16.5 g/dL 06/17/2024 2:[address] [facility] Hematocrit 33.0(L) 40.5 - 48.5 % 06/17/2024 2:[address] [facility] Mean Cell Volume 93.0 82.9 - 93.1 fL 06/17/2024 2:[address] [facility] Mean Cell Hemoglobin 30.4 27.5 - 32.1 pg 06/17/2024 2:[address] [facility] Mean Cell Hemoglobin Concentration 32.7 32.0 - 35.7 g/dL 06/17/2024 2:53 AM EST [facility] Platelet 101(L) 145 - 357 x10(3)/mc L 06/17/2024 2:[address] [facility] Mean Platelet Volume 10.4 7.6 - 12.9 fL 06/17/2024 2:[address] [facility] RDW Standard Deviation 48.4(H) 36.0 - 45.0 fL 06/17/2024 2:[address] [facility] RDW coefficient of variation 14.1(H) 11.4 - 13.8 % 06/17/2024 2:[address] [facility] NRBC% auto 0.0 % 06/17/2024 2:[address] [facility] NRBC Absolute <0.01 <0.01 x10(3)/mc L 06/17/2024 2:[address] [facility] Blood VENOUS BLOOD SPECIMEN / Unknown Venipuncture / Unknown 06/17/2024 2:39 AM EST 06/17/2024 2:43 AM EST Bobby Loja MD HEMATOLOGY ORDERABLE S [facility] [place] [address] * (ABNORMAL) Basic Metabolic Panel (06/17/2024 2:39 AM EST) Glucose 149 65 - 199 mg/dL 06/17/2024 3:[address] [facility] Comment:Glucose Concentratio n >=200 mg/dL plus symptoms is consistent with Diabetes Mellitus. Blood Urea Nitrogen 42(H) 10 - 20 mg/dL 06/17/2024 3:[address] [facility] Creatinine 1.52(H) 0.80 - 1.50 mg/dL 06/17/2024 3:[address] [facility] Sodium 133(L) 135 - 145 mMol/L 06/17/2024 3:[address] [facility] Potassium 4.5 3.5 - 5.0 mMol/L 06/17/2024 3:[address] [facility] Chloride 101 98 - 107 mMol/L 06/17/2024 3:[address] [facility] Carbon Dioxide 23 22 - 31 mMol/L 06/17/2024 3:[address] [facility] Anion Gap 9 5 - 15 mMol/L 06/17/2024 3:[address] [facility] Calcium 8.8 8.5 - 10.5 mg/dL 06/17/2024 3:[address] [facility] Est Glomerular Filtration Rate - Male 50 mL/min/1. 73 m?? 06/17/2024 3:[address] [facility] Comment: This patient's estimated GFR [...] 2:39 AM EST 06/17/2024 2:43 AM EST Bobby Loja MD CHEMISTRY ORDERABLES [facility] [place] [address] * (ABNORMAL) POC, GLUCOSE (06/17/2024 12:13 AM EST) [facility] Signature Glucometer, POC 211(H) 65 - 199 mg/dL 06/17/2024 12:13 AM EST [facility] Comment:Supplemental ranges: <140 mg/dL before meals <180 mg/dL all other times of the day. Blood CAPILLARY BLOOD / Unknown 06/17/2024 12:13 AM EST 06/17/2024 12:14 AM EST Bobby Loja MD POINT OF CARE TEST O NIKA Performing Organization Address [facility] Co de Phone Number [facility] [place] [address] * (ABNORMAL) POC, GLUCOSE (06/16/2024 7:22 PM EST) Glucometer, POC 229(H) 65 - 199 mg/dL 06/16/2024 7:22 PM EST [facility] Comment:Supplemental ranges: <140 mg/dL before meals <180 mg/dL all other times of the day. Blood CAPILLARY BLOOD / Unknown 06/16/2024 7:22 PM EST 06/16/2024 7:22 PM EST Bobby Loja MD POINT OF CARE TEST Abimael MAHER Performing Organization Address [facility] de Phone Number [facility] [place] [address] * (ABNORMAL) POC, GLUCOSE (06/16/2024 6:14 PM EST) Glucometer, POC 220(H) 65 - 199 mg/dL 06/16/2024 6:14 PM EST [facility] Comment:Supplemental ranges: <140 mg/dL before meals <180 mg/dL all other times of the day. Blood CAPILLARY BLOOD / Unknown 06/16/2024 6:14 PM EST 06/16/2024 6:14 PM EST Bobby Loja MD POINT OF CARE TEST O NIKA Performing Organization Address [facility] Co de Phone Number [facility] [place] [address] * Lactate, Whole Blood (06/16/2024 6:14 PM EST) Lactate, Whole Blood 1.8 0.5 - 2.2 mmol/L 06/16/2024 6:27 PM EST [facility] Blood VENOUS BLOOD SPECIMEN / Unknown Venipuncture / Unknown 06/16/2024 6:14 PM EST 06/16/2024 6:25 PM EST Narrative Authorizing Provider Result Saranya Loja MD CHEMISTRY ORDERABLES [facility] [place] [address] * (ABNORMAL) POC, GLUCOSE (06/16/2024 4:14 PM EST) Glucometer, POC 240(H) 65 - 199 mg/dL 06/16/2024 4:14 PM EST [facility] Comment:Supplemental ranges: <140 mg/dL before meals <180 mg/dL all other times of the day. Blood CAPILLARY BLOOD / Unknown 06/16/2024 4:14 PM EST 06/16/2024 4:14 PM EST Bobby Loja MD POINT OF CARE TEST O RDERAPIETER Performing Organization Address City/[facility]/ZIP Co de Phone Number [facility] [place] [address] * POC, GLUCOSE (06/16/2024 11:49 AM EST) Glucometer, POC 199 65 - 199 mg/dL 06/16/2024 11:49 AM EST [facility] Comment:Supplemental ranges: <140 mg/dL before meals <180 mg/dL all other times of the day. Blood CAPILLARY BLOOD / Unknown 06/16/2024 11:49 AM EST 06/16/2024 11:49 AM EST Bobby Loja MD POINT OF CARE TEST O RDBECKIE [facility] [place] [address] * (ABNORMAL) Hemogram (06/16/2024 11:44 AM EST) White Blood Cell 17.91(H) 4.00 - 9.50 x10(3)/mc L 06/16/2024 12:[address] [facility] Red Blood Cell 3.47(L) 4.58 - 5.54 x10(6)/mc L 06/16/2024 12:[address] [facility] Hemoglobin 10.5(L) 13.7 - 16.5 g/dL 06/16/2024 12:[address] [facility] Hematocrit 33.1(L) 40.5 - 48.5 % 06/16/2024 12:[address] [facility] Mean Cell Volume 95.4(H) 82.9 - 93.1 fL 06/16/2024 12:[address] [facility] Mean Cell Hemoglobin 30.3 27.5 - 32.1 pg 06/16/2024 12:[address] [facility] Mean Cell Hemoglobin Concentration 31.7(L) 32.0 - 35.7 g/dL 06/16/2024 12:[address] [facility] Platelet 101(L) 145 - 357 x10(3)/mc L 06/16/2024 12:[address] [facility] Mean Platelet Volume 10.6 7.6 - 12.9 fL 06/16/2024 12:[address] [facility] RDW Standard Deviation 49.5(H) 36.0 - 45.0 fL 06/16/2024 12:[address] [facility] RDW coefficient of variation 14.2(H) 11.4 - 13.8 % 06/16/2024 12:[address] [facility] NRBC% auto 0.0 % 06/16/2024 12:[address] [facility] NRBC Absolute <0.01 <0.01 x10(3)/mc L 06/16/2024 12:[address] [facility] Blood VENOUS BLOOD SPECIMEN / Unknown Venipuncture / Unknown 06/16/2024:44 AM EST 06/16/2024 12:03 PM EST Bobby Loja MD HEMATOLOGY ORDERABLE S Performing Organization Address [facility] Co de Phone Number [facility] [place] [address] * Lactate, Whole Blood (06/16/2024 9:02 AM EST) Lactate, Whole Blood 1.8 0.5 - 2.2 mmol/L 06/16/2024 9:19 AM EST [facility] Blood VENOUS BLOOD SPECIMEN / Unknown Venipuncture / Unknown 06/16/2024 9:02 AM EST 06/16/2024 9:17 AM EST Bobby Loja MD CHEMISTRY ORDERABLES Performing Organization Address [facility] Phone Number [facility] [place] [address] * POC, GLUCOSE (06/16/2024 7:44 AM EST) Glucometer, POC 129 65 - 199 mg/dL 06/16/2024 7:44 AM EST [facility] Comment:Supplemental ranges: <140 mg/dL before meals <180 mg/dL all other times of the day. Blood CAPILLARY BLOOD / Unknown 06/16/2024 7:44 AM EST 06/16/2024 7:44 AM EST Bobby Loja MD POINT OF CARE TEST O RDERABLES Performing Organization Address [facility] Co de Phone Number [facility] [place] [address] * POC, GLUCOSE (06/16/2024 4:01 AM EST) Glucometer, POC 158 65 - 199 mg/dL 06/16/2024 4:01 AM EST [facility] Comment:Supplemental ranges: <140 mg/dL before meals <180 mg/dL all other times of the day. Blood CAPILLARY BLOOD / Unknown 06/16/2024 4:01 AM EST 06/16/2024 4:01 AM EST Bobby Loja MD POINT OF CARE TEST O RDERABLES [facility] [place] [address] * (ABNORMAL) Basic Metabolic Panel (06/16/2024 2:23 AM EST) Glucose 177 65 - 199 mg/dL 06/16/2024 3:13 AM EST [facility] Comment:Glucose Concentratio n >=200 mg/dL plus symptoms is consistent with Diabetes Mellitus. Blood Urea Nitrogen 37(H) 10 - 20 mg/dL 06/16/2024 3:[address] [facility] Creatinine 2.10(H) 0.80 - 1.50 mg/dL 06/16/2024 3:[address] [facility] Sodium 132(L) 135 - 145 mMol/L 06/16/2024 3:[address] [facility] Potassium 4.5 3.5 - 5.0 mMol/L 06/16/2024 3:[address] [facility] Chloride 99 98 - 107 mMol/L 06/16/2024 3:[address] [facility] Carbon Dioxide 22 22 - 31 mMol/L 06/16/2024 3:[address] [facility] Anion Gap 11 5 - 15 mMol/L 06/16/2024 3:[address] [facility] Calcium 9.0 8.5 - 10.5 mg/dL 06/16/2024 3:[address] [facility] Est Glomerular Filtration Rate - Male 34 mL/min/1. 73 m?? 06/16/2024 3:[address] [facility] Comment: This patient's estimated GFR [...] BLOOD SPECIMEN / Unknown Venipuncture / Unknown 06/16/2024 2:23 AM EST 06/16/2024 2:29 AM EST Bobby Loja MD CHEMISTRY ORDERABLES Performing Organization Address [facility] Phone Number [facility] [place] [address] * POC, GLUCOSE (06/16/2024 2:21 AM EST) Glucometer, POC 176 65 - 199 mg/dL 06/16/2024 2:31 AM EST [facility] Comment:Supplemental ranges: <140 mg/dL before meals <180 mg/dL all other times of the day. Blood CAPILLARY BLOOD / Unknown 06/16/2024 2:21 AM EST 06/16/2024 2:31 AM EST Bobby Loja MD POINT OF CARE TEST O RDERABLES Performing Organization Address [facility] de Phone Number [facility] [place] [address] * (ABNORMAL) POC, GLUCOSE (06/16/2024 12:09 AM EST) Glucometer, POC 222(H) 65 - 199 mg/dL 06/16/2024 12:09 AM EST [facility] Comment:Supplemental ranges: <140 mg/dL before meals <180 mg/dL all other times of the day. Blood CAPILLARY BLOOD / Unknown 06/16/2024 12:09 AM EST 06/16/2024 12:09 AM EST Bobby Loja MD POINT OF CARE TEST O RDBECKIE Performing Organization Address City/[facility] Co de Phone Number [facility] [place] [address] * (ABNORMAL) POC, GLUCOSE (06/15/2024 10:07 PM EST) Glucometer, POC 320(H) 65 - 199 mg/dL 06/15/2024 10:07 PM EST [facility] Comment:Supplemental ranges: <140 mg/dL before meals <180 mg/dL all other times of the day. Blood CAPILLARY BLOOD / Unknown 06/15/2024 10:07 PM EST 06/15/2024 10:07 PM EST Bobby Loja MD POINT OF CARE TEST O NIKA Performing Organization Address City/[facility] Co de Phone Number [facility] [place] [address] * (ABNORMAL) POC, GLUCOSE (06/15/2024 7:56 PM EST) Glucometer, POC 304(H) 65 - 199 mg/dL 06/15/2024 7:56 PM EST [facility] Comment:Supplemental ranges: <140 mg/dL before meals <180 mg/dL all other times of the day. Blood CAPILLARY BLOOD / Unknown 06/15/2024 7:56 PM EST 06/15/2024 7:56 PM EST Bobby Loja MD POINT OF CARE TEST O NIKA [facility] [place] [address] * (ABNORMAL) POC, GLUCOSE (06/15/2024 7:52 PM EST) Glucometer, POC 288(H) 65 - 199 mg/dL 06/15/2024 7:52 PM EST [facility] Comment:Supplemental ranges: <140 mg/dL before meals <180 mg/dL all other times of the day. Blood CAPILLARY BLOOD / Unknown 06/15/2024 7:52 PM EST 06/15/2024 7:52 PM EST Bobby Loja MD POINT OF CARE TEST O NIKA Performing Organization Address [facility] Co de Phone Number [facility] [place] [address] * POC, GLUCOSE (06/15/2024 4:21 PM EST) Glucometer, POC 192 65 - 199 mg/dL 06/15/2024 4:21 PM EST [facility] Comment:Supplemental ranges: <140 mg/dL before meals <180 mg/dL all other times of the day. Blood CAPILLARY BLOOD / Unknown 06/15/2024 4:21 PM EST 06/15/2024 4:21 PM EST Bobby Loja MD POINT OF CARE TEST Abimael MAHER Performing Organization Address [facility] de Phone Number [facility] [place] [address] * POC, GLUCOSE (06/15/2024 3:27 PM EST) Glucometer, POC 155 65 - 199 mg/dL 06/15/2024 3:27 PM EST [facility] Comment:Supplemental ranges: <140 mg/dL before meals <180 mg/dL all other times of the day. Blood CAPILLARY BLOOD / Unknown 06/15/2024 3:27 PM EST 06/15/2024 3:27 PM EST Bobby Loja MD POINT OF CARE TEST O NIKA Performing Organization Address [facility] Co de Phone Number [facility] [place] [address] * POC, GLUCOSE (06/15/2024 2:23 PM EST) Glucometer, POC 160 65 - 199 mg/dL 06/15/2024 2:23 PM EST [facility] Comment:Supplemental ranges: <140 mg/dL before meals <180 mg/dL all other times of the day. Blood CAPILLARY BLOOD / Unknown 06/15/2024 2:23 PM EST 06/15/2024 2:23 PM EST Narrative Authorizing Provider Result Saranya Loja MD POINT OF CARE TEST O NIKA Performing Organization Address [facility]/ZIP Co de Phone Number [facility] [place] [address] * POC, GLUCOSE (06/15/2024 1:26 PM EST) Glucometer, POC 167 65 - 199 mg/dL 06/15/2024 1:26 PM EST [facility] Comment:Supplemental ranges: <140 mg/dL before meals <180 mg/dL all other times of the day. Blood CAPILLARY BLOOD / Unknown 06/15/2024 1:26 PM EST 06/15/2024 1:26 PM EST Narrative Authorizing Provider Result Saranya Loja MD POINT OF CARE TEST Abimael MAHER Performing Organization Address [facility] Co de Phone Number [facility] [place] [address] * (ABNORMAL) POC, GLUCOSE (06/15/2024 12:55 PM EST) Glucometer, POC 210(H) 65 - 199 mg/dL 06/15/2024 12:55 PM EST [facility] Comment:Supplemental ranges: <140 mg/dL before meals <180 mg/dL all other times of the day. Blood CAPILLARY BLOOD / Unknown 06/15/2024 12:55 PM EST 06/15/2024 12:55 PM EST Narrative Authorizing Provider Result Saranya Loja MD POINT OF CARE TEST O NIKA Performing Organization Address City/[facility] Co de Phone Number [facility] [place] [address] * (ABNORMAL) POC, GLUCOSE (06/15/2024 11:29 AM EST) Glucometer, POC 220(H) 65 - 199 mg/dL 06/15/2024 11:[address] [facility] Comment:Supplemental ranges: <140 mg/dL before meals <180 mg/dL all other times of the day. Blood CAPILLARY BLOOD / Unknown 06/15/2024 11:29 AM EST 06/15/2024 11:29 AM EST Bobby Loja MD POINT OF CARE TEST O NIKA [facility] [place] [address] * (ABNORMAL) Basic Metabolic Panel (06/15/2024 11:23 AM EST) Glucose 215(H) 65 - 199 mg/dL 06/15/2024 12:[address] [facility] Comment:Glucose Concentratio n >=200 mg/dL plus symptoms is consistent with Diabetes Mellitus. Blood Urea Nitrogen 24(H) 10 - 20 mg/dL 06/15/2024 12:[address] [facility] Creatinine 1.54(H) 0.80 - 1.50 mg/dL 06/15/2024 12:[address] [facility] Sodium 135 135 - 145 mMol/L 06/15/2024 12:[address] [facility] Potassium 4.5 3.5 - 5.0 mMol/L 06/15/2024 12:[address] [facility] Chloride 105 98 - 107 mMol/L 06/15/2024 12:[address] [facility] Carbon Dioxide 19(L) 22 - 31 mMol/L 06/15/2024 12:[address] [facility] Anion Gap 11 5 - 15 mMol/L 06/15/2024 12:[address] [facility] Calcium 8.3(L) 8.5 - 10.5 mg/dL 06/15/2024 12:[address] [facility] Est Glomerular Filtration Rate - Male 49 mL/min/1. 73 m?? 06/15/2024 12:[address] [facility] Comment: This patient's estimated GFR [...] SPECIMEN / Unknown Venipuncture / Unknown 06/15/2024 11:23 AM EST 06/15/2024 11:33 AM EST Bobby Loja MD CHEMISTRY ORDERABLES Performing Organization Address [facility] Co de Phone Number [facility] [place] [address] * POC, GLUCOSE (06/15/2024 10:29 AM EST) Glucometer, POC 189 65 - 199 mg/dL 06/15/2024 10:29 AM EST [facility] Comment:Supplemental ranges: <140 mg/dL before meals <180 mg/dL all other times of the day. Blood CAPILLARY BLOOD / Unknown 06/15/2024 10:29 AM EST 06/15/2024 10:29 AM EST Bobby Loja MD POINT OF CARE TEST O RDERABLES [facility] [place] [address] * POC, GLUCOSE (06/15/2024 9:45 AM EST) Glucometer, POC 178 65 - 199 mg/dL 06/15/2024 9:45 AM EST [facility] Comment:Supplemental ranges: <140 mg/dL before meals <180 mg/dL all other times of the day. Blood CAPILLARY BLOOD / Unknown 06/15/2024 9:45 AM EST 06/15/2024 9:45 AM EST Bobby Loja MD POINT OF CARE TEST O RDERAPIETER [facility] [place] [address] * (ABNORMAL) Cooximetry, POC (06/15/2024 9:31 AM EST) pO2, Coox 38 mmHg 06/15/2024 9:[address] [facility] Hemoglobin, Coox 12.9(L) 13.7 - 16.5 g/dL 06/15/2024 9:[address] [facility] Oxyhemoglobin, Coox 72.1 % 06/15/2024 9:[address] [facility] Carboxyhemoglo bin, Coox 0.9 % 06/15/2024 9:34 AM EST [facility] Comment: Nonsmokers: 0.5-1.5% COHB ?? Smokers: Variable ??but usually less than 10% ?? Toxic: 20-30% COHB ?? Lethal: Greater than 60% COHB Methemoglobin, Coox 0.3 <=1.5 % 06/15/2024 9:34 AM EST [facility] Blood (Mixed Venous) 06/15/2024 9:31 AM EST 06/15/2024 9:34 AM EST Bobby Loja MD POINT OF CARE TEST O NIKA [facility] [place] [address] * Cooximetry, POC (06/15/2024 9:22 AM EST) pO2, Coox 30 mmHg 06/15/2024 9:25 AM EST [facility] Hemoglobin, Coox 06/15/2024 9:25 AM EST [facility] Comment:QUES Oxyhemoglobin, Coox 06/15/2024 9:[address] [facility] Comment:QUES Carboxyhemoglo bin, Coox 06/15/2024 9:[address] [facility] Comment:QUES Methemoglobin, Coox 06/15/2024 9:[address] [facility] Comment:QUES Blood (Mixed Venous) 06/15/2024 9:22 AM EST 06/15/2024 9:25 AM EST Bobby Loja MD POINT OF CARE TEST O RDERABLES [facility] [place] [address] * (ABNORMAL) Blood Gas, Arterial POC (06/15/2024 9:19 AM EST) pH, Arterial 7.31(L) 7.35 - 7.45 06/15/2024 9:[address] [facility] PCO2, Arterial 36 35 - 45 mmHg 06/15/2024 9:[address] [facility] PO2, Arterial 94 85 - 104 mmHg 06/15/2024 9:[address] [facility] Bicarbonate, Arterial 18.0(L) 20.0 - 26.0 mmol/L 06/15/2024 9:[address] [facility] Base Excess, Arterial -8.2(L) -3.0 - 3.0 mmol/L 06/15/2024 9:[address] [facility] Hemoglobin, Arterial 12.7(L) 13.7 - 16.5 g/dL 06/15/2024 9:[address] [facility] Oxyhemoglobin, Arterial 96.0 94.0 - 97.0 % 06/15/2024 9:[address] [facility] Carboxyhemoglobin , Arterial 0.5 % 06/15/2024 9:[address] [facility] Comment: Nonsmokers: 0.5-1.5% COHB ?? Smokers: Variable ??but usually less than 10% ?? Toxic: 20-30% COHB ?? Lethal: Greater than 60% COHB Methemoglobin, Arterial 0.3 <=1.5 % 06/15/2024 9:[address] [facility] Sodium, Arterial 136 135 - 145 mmol/L 06/15/2024 9:[address] [facility] Potassium, Arterial 4.0 3.5 - 5.0 mmol/L 06/15/2024 9:[address] [facility] Chloride, Arterial 106 98 - 107 mmol/L 06/15/2024 9:[address] [facility] Lactate, Arterial 1.7 0.5 - 2.2 mmol/L 06/15/2024 9:[address] [facility] Flow Rate 2.0 L/min 06/15/2024 9:[address] [facility] IONIZED CALCIUM, ARTERIAL 1.14(L) 1.15 - 1.33 mmol/L 06/15/2024 9:[address] [facility] Glucose, Arterial 193 65 - 199 mg/dL 06/15/2024 9:[address] [facility] Comment:Glucose Concentratio n >=200 mg/dL plus symptoms is consistent with Diabetes Mellitus. Blood ARTERIAL BLOOD / Unknown 06/15/2024 9:19 AM EST 06/15/2024 9:20 AM EST Bobby Loja MD POINT OF CARE TEST O RDERABLES [facility] [place] [address] * (ABNORMAL) POC, GLUCOSE (06/15/2024 8:37 AM EST) Glucometer, POC 204(H) 65 - 199 mg/dL 06/15/2024 8:[address] [facility] Comment:Supplemental ranges: <140 mg/dL before meals <180 mg/dL all other times of the day. Blood CAPILLARY BLOOD / Unknown 06/15/2024 8:37 AM EST 06/15/2024 8:37 AM EST Bobby Loja MD POINT OF CARE TEST O NIKA Performing Organization Address [facility] de Phone Number [facility] [place] [address] * POC, GLUCOSE (06/15/2024 7:37 AM EST) Glucometer, POC 199 65 - 199 mg/dL 06/15/2024 7:37 AM EST [facility] Comment:Supplemental ranges: <140 mg/dL before meals <180 mg/dL all other times of the day. Blood CAPILLARY BLOOD / Unknown 06/15/2024 7:37 AM EST 06/15/2024 7:38 AM EST Bobby Loja MD POINT OF CARE TEST O NIKA Performing Organization Address [facility] de Phone Number [facility] [place] [address] * (ABNORMAL) POC, GLUCOSE (06/15/2024 7:01 AM EST) Glucometer, POC 203(H) 65 - 199 mg/dL 06/15/2024 7:01 AM EST [facility] Comment:Supplemental ranges: <140 mg/dL before meals <180 mg/dL all other times of the day. Blood CAPILLARY BLOOD / Unknown 06/15/2024 7:01 AM EST 06/15/2024 7:01 AM EST Bobby Loja MD POINT OF CARE TEST O NIKA Performing Organization Address [facility] Co de Phone Number [facility] [place] [address] * XR Chest One View (06/15/2024 6:31 AM EST) WORKSTATION ID [id number] RAD Anatomical Region Laterality Modality Chest N/A [...] who have questions please contact the health healthcare corporate account director that requested your imaging first. ? Electronically signed by: Stuart Aponte MD, [facility] ??([phone]), at 06/15/2024 10:38 AM Narrative 06/15/2024 10:38 [...] patients who have questions please contactthe health healthcare corporate account director that requested your imaging first. Electronically signed by: Stuart Aponte MD, [facility]([phone]), at 06/15/2024 10:38 AM Bobby Loja MD IMG DX ORDERABLES * POC, GLUCOSE (06/15/2024 6:02 AM EST) Glucometer, POC 179 65 - 199 mg/dL 06/15/2024 6:02 AM EST [facility] Comment:Supplemental ranges: <140 mg/dL before meals <180 mg/dL all other times of the day. Blood CAPILLARY BLOOD / Unknown 06/15/2024 6:02 AM EST 06/15/2024 6:02 AM EST Bobby Loja MD POINT OF CARE TEST O NIKA Performing Organization Address [facility] Co de Phone Number [facility] [place] [address] * POC, GLUCOSE (06/15/2024 5:06 AM EST) Glucometer, POC 160 65 - 199 mg/dL 06/15/2024 5:06 AM EST [facility] Comment:Supplemental ranges: <140 mg/dL before meals <180 mg/dL all other times of the day. Blood CAPILLARY BLOOD / Unknown 06/15/2024 5:06 AM EST 06/15/2024 5:06 AM EST Bobby Loja MD POINT OF CARE TEST O NIKA Performing Organization Address City/[facility] Co de Phone Number [facility] [place] [address] * POC, GLUCOSE (06/15/2024 4:05 AM EST) Glucometer, POC 160 65 - 199 mg/dL 06/15/2024 4:06 AM EST [facility] Comment:Supplemental ranges: <140 mg/dL before meals <180 mg/dL all other times of the day. Blood CAPILLARY BLOOD / Unknown 06/15/2024 4:05 AM EST 06/15/2024 4:06 AM EST Bobby Loja MD POINT OF CARE TEST O NIKA Performing Organization Address [facility] Co de Phone Number [facility] [place] [address] * POC, GLUCOSE (06/15/2024 3:07 AM EST) Glucometer, POC 151 65 - 199 mg/dL 06/15/2024 3:[address] [facility] Comment:Supplemental ranges: <140 mg/dL before meals <180 mg/dL all other times of the day. Blood CAPILLARY BLOOD / Unknown 06/15/2024 3:07 AM EST 06/15/2024 3:07 AM EST Bobby Loja MD POINT OF CARE TEST O NIKA Performing Organization Address [facility] Co de Phone Number [facility] [place] [address] * (ABNORMAL) Basic Metabolic Panel (06/15/2024 1:48 AM EST) Glucose 140 65 - 199 mg/dL 06/15/2024 2:[address] [facility] Comment:Glucose Concentratio n >=200 mg/dL plus symptoms is consistent with Diabetes Mellitus. Blood Urea Nitrogen 21(H) 10 - 20 mg/dL 06/15/2024 2:[address] [facility] Creatinine 1.27 0.80 - 1.50 mg/dL 06/15/2024 2:[address] [facility] Sodium 140 135 - 145 mMol/L 06/15/2024 2:[address] [facility] Potassium 4.4 3.5 - 5.0 mMol/L 06/15/2024 2:[address] [facility] Chloride 108(H) 98 - 107 mMol/L 06/15/2024 2:38 AM EST [facility] Carbon Dioxide 23 22 - 31 mMol/L 06/15/2024 2:[address] [facility] Anion Gap 9 5 - 15 mMol/L 06/15/2024 2:[address] [facility] Calcium 8.3(L) 8.5 - 10.5 mg/dL 06/15/2024 2:[address] [facility] Est Glomerular Filtration Rate - Male 62 mL/min/1. 73 m?? 06/15/2024 2:[address] [facility] Comment: This patient's estimated GFR [...] 1:48 AM EST 06/15/2024 1:52 AM EST Bobby Loja MD CHEMISTRY ORDERABLES [facility] [place] [address] * (ABNORMAL) CBC (with Diff) (06/15/2024 1:48 AM EST) White Blood Cell 11.71(H) 4.00 - 9.50 x10(3)/mc L 06/15/2024 2:13 AM EST [facility] Red Blood Cell 4.14(L) 4.58 - 5.54 x10(6)/mc L 06/15/2024 2:13 AM EST [facility] Hemoglobin 12.5(L) 13.7 - 16.5 g/dL 06/15/2024 2:[address] [facility] Hematocrit 38.4(L) 40.5 - 48.5 % 06/15/2024 2:[address] [facility] Mean Cell Volume 92.8 82.9 - 93.1 fL 06/15/2024 2:[address] [facility] Mean Cell Hemoglobin 30.2 27.5 - 32.1 pg 06/15/2024 2:[address] [facility] Mean Cell Hemoglobin Concentration 32.6 32.0 - 35.7 g/dL 06/15/2024 2:[address] [facility] Platelet 101(L) 145 - 357 x10(3)/mc L 06/15/2024 2:[address] [facility] Mean Platelet Volume 10.0 7.6 - 12.9 fL 06/15/2024 2:[address] [facility] RDW Standard Deviation 48.8(H) 36.0 - 45.0 fL 06/15/2024 2:[address] [facility] RDW coefficient of variation 14.2(H) 11.4 - 13.8 % 06/15/2024 2:[address] [facility] NRBC% auto 0.0 % 06/15/2024 2:[address] [facility] NRBC Absolute <0.01 <0.01 x10(3)/mc L 06/15/2024 2:[address] [facility] Neutrophil % 79.7 % 06/15/2024 2:[address] [facility] Neutrophil Absolute (ANC) - Automated 9.34(H) 1.70 - 6.10 x10(3)/mc L 06/15/2024 2:[address] [facility] Lymph % 8.0 % 06/15/2024 2:[address] [facility] Lymph Absolute 0.94 0.90 - 3.20 x10(3)/mc L 06/15/2024 2:13 AM EST [facility] Monocyte % 11.4 % 06/15/2024 2:13 AM EST [facility] Monocyte Absolute 1.33(H) 0.30 - 0.90 x10(3)/mc L 06/15/2024 2:13 AM EST [facility] Eos % 0.2 % 06/15/2024 2:13 AM EST [facility] Eos Absolute <0.04 0.00 - 0.40 x10(3)/mc L 06/15/2024 2:13 AM EST [facility] Basophil % 0.2 % 06/15/2024 2:13 AM EST [facility] Baso Absolute <0.04 0.00 - 0.10 x10(3)/mc L 06/15/2024 2:13 AM EST [facility] Immature Gran % 0.5 % 2:[address] [facility] Immature Gran Absolute 0.06(H) 0.00 - 0.04 x10(3)/mc L 06/15/2024 2:13 AM EST [facility] Blood VENOUS BLOOD SPECIMEN / Unknown Venipuncture / Unknown 06/15/2024 1:48 AM EST 06/15/2024 1:52 AM EST Bobby Loja MD HEMATOLOGY ORDERABLE S Performing Organization Address City/State/[facility] Co de Phone Number [facility] [place] [address] * (ABNORMAL) Troponin - Single (06/15/2024 1:48 AM EST) Troponin-T, High Sensitivity 667(H) <=22 ng/L 06/15/2024 2:22 AM EST [facility] Comment: This patient's troponin T [...] troponin value can be found in the [facility] Test Catalog Troponin - https://one-.testcatalog.org/catalogs/565/files/41135 Reference: Fourth [place] Definition of Myocardial Infarction. Journal of the [place] [employer] 2018;72:3487-3946 Blood VENOUS BLOOD SPECIMEN / Unknown Venipuncture / Unknown 06/15/2024 1:48 AM EST 06/15/2024 1:52 AM EST Bobby Loja MD CHEMISTRY ORDERABLES [facility] [place] [address] * (ABNORMAL) Blood Gas, Arterial POC (06/15/2024 1:46 AM EST) pH, Arterial 7.33(L) 7.35 - 7.45 06/15/2024 1:47 AM EST [facility] PCO2, Arterial 40 35 - 45 mmHg 06/15/2024 1:47 AM EST [facility] PO2, Arterial 131(H) 85 - 104 mmHg 06/15/2024 1:47 AM EST [facility] Bicarbonate, Arterial 20.7 20.0 - 26.0 mmol/L 06/15/2024 1:47 AM EST [facility] Base Excess, Arterial -5.2(L) -3.0 - 3.0 mmol/L 06/15/2024 1:47 AM EST [facility] Hemoglobin, Arterial 13.4(L) 13.7 - 16.5 g/dL 06/15/2024 1:[address] [facility] Oxyhemoglobin, Arterial 97.9(H) 94.0 - 97.0 % 06/15/2024 1:[address] [facility] Carboxyhemoglobin , Arterial 0.5 % 06/15/2024 1:[address] [facility] Comment: Nonsmokers: 0.5-1.5% COHB ?? Smokers: Variable ??but usually less than 10% ?? Toxic: 20-30% COHB ?? Lethal: Greater than 60% COHB Methemoglobin, Arterial 0.3 <=1.5 % 06/15/2024 1:[address] [facility] Sodium, Arterial 139 135 - 145 mmol/L 06/15/2024 1:[address] [facility] Potassium, Arterial 4.2 3.5 - 5.0 mmol/L 06/15/2024 1:[address] [facility] Chloride, Arterial 107 98 - 107 mmol/L 06/15/2024 1:[address] [facility] Lactate, Arterial 1.8 0.5 - 2.2 mmol/L 06/15/2024 1:[address] [facility] Fraction of Inspired Oxygen 40 % 06/15/2024 1:[address] [facility] PF Ratio 328 Ratio 06/15/2024 1:[address] [facility] Comment:PF ratio calculated using the non-temperature corrected pO2 result. IONIZED CALCIUM, ARTERIAL 1.17 1.15 - 1.33 mmol/L 06/15/2024 1:[address] [facility] Glucose, Arterial 127 65 - 199 mg/dL 06/15/2024 1:[address] [facility] Comment:Glucose Concentratio n >=200 mg/dL plus symptoms is consistent with Diabetes Mellitus. Blood ARTERIAL BLOOD / Unknown 06/15/2024 1:46 AM EST 06/15/2024 1:47 AM EST Bobby Loja MD POINT OF CARE TEST O RDERABLES Performing Organization Address City/[facility]/ZIP Co de Phone Number [facility] [place] [address] * POC, GLUCOSE (06/15/2024 1:05 AM EST) Glucometer, POC 116 65 - 199 mg/dL 06/15/2024 1:05 AM EST [facility] Comment:Supplemental ranges: <140 mg/dL before meals <180 mg/dL all other times of the day. Blood CAPILLARY BLOOD / Unknown 06/15/2024 1:05 AM EST 06/15/2024 1:05 AM EST Bobby Loja MD POINT OF CARE TEST O NIKA Performing Organization Address [facility] Co de Phone Number [facility] [place] [address] * POC, GLUCOSE (06/15/2024 12:16 AM EST) Glucometer, POC 135 65 - 199 mg/dL 06/15/2024 12:16 AM EST [facility] Comment:Supplemental ranges: <140 mg/dL before meals <180 mg/dL all other times of the day. Blood CAPILLARY BLOOD / Unknown 06/15/2024 12:16 AM EST 06/15/2024 12:16 AM EST Bobby Loja MD POINT OF CARE TEST O NIKA [facility] [place] [address] * Potassium (06/14/2024 11:28 PM EST) Potassium 4.1 3.5 - 5.0 mMol/L 06/14/2024 11:54 PM EST [facility] Blood VENOUS BLOOD SPECIMEN / Unknown Venipuncture / Unknown 06/14/2024 11:28 PM EST 06/14/2024 11:34 PM EST Bobby Loja MD CHEMISTRY ORDERABLES Performing Organization Address City/[facility] Co de Phone Number [facility] [place] [address] * POC, GLUCOSE (06/14/2024 10:58 PM EST) Glucometer, POC 126 65 - 199 mg/dL 06/14/2024 10:59 PM EST [facility] Comment:Supplemental ranges: <140 mg/dL before meals <180 mg/dL all other times of the day. Blood CAPILLARY BLOOD / Unknown 06/14/2024 10:58 PM EST 06/14/2024 10:59 PM EST Bobby Loja MD POINT OF CARE TEST O RDERABLES Performing Organization Address [facility] Co de Phone Number [facility] [place] [address] * POC, GLUCOSE (06/14/2024 9:55 PM EST) Glucometer, POC 152 65 - 199 mg/dL 06/14/2024 9:56 PM EST [facility] Comment:Supplemental ranges: <140 mg/dL before meals <180 mg/dL all other times of the day. Blood CAPILLARY BLOOD / Unknown 06/14/2024 9:55 PM EST 06/14/2024 9:56 PM EST Bobby Loja MD POINT OF CARE TEST O NIKA Performing Organization Address City/[facility]/ZIP Co de Phone Number [facility] [place] [address] * POC, GLUCOSE (06/14/2024 8:54 PM EST) Glucometer, POC 151 65 - 199 mg/dL 06/14/2024 8:54 PM EST [facility] Comment:Supplemental ranges: <140 mg/dL before meals <180 mg/dL all other times of the day. Blood CAPILLARY BLOOD / Unknown 06/14/2024 8:54 PM EST 06/14/2024 8:54 PM EST Bobby Loja MD POINT OF CARE TEST O NIKA Performing Organization Address [facility] Co de Phone Number [facility] [place] [address] * POC, GLUCOSE (06/14/2024 7:51 PM EST) Glucometer, POC 169 65 - 199 mg/dL 06/14/2024 7:52 PM EST [facility] Comment:Supplemental ranges: <140 mg/dL before meals <180 mg/dL all other times of the day. Blood CAPILLARY BLOOD / Unknown 06/14/2024 7:51 PM EST 06/14/2024 7:52 PM EST Bobby Loja MD POINT OF CARE TEST O NIKA Performing Organization Address [facility] Co de Phone Number [facility] [place] [address] * POC, GLUCOSE (06/14/2024 6:49 PM EST) Glucometer, POC 194 65 - 199 mg/dL 06/14/2024 6:50 PM EST [facility] Comment:Supplemental ranges: <140 mg/dL before meals <180 mg/dL all other times of the day. Blood CAPILLARY BLOOD / Unknown 06/14/2024 6:49 PM EST 06/14/2024 6:50 PM EST Bobby Loja MD POINT OF CARE TEST O NIKA Performing Organization Address [facility] Co de Phone Number [facility] [place] [address] * (ABNORMAL) Hemoglobin (06/14/2024 6:19 PM EST) Hemoglobin 13.1(L) 13.7 - 16.5 g/dL 06/14/2024 7:08 PM EST [facility] Blood VENOUS BLOOD SPECIMEN / Unknown Venipuncture / Unknown 06/14/2024 6:19 PM EST 06/14/2024 6:28 PM EST Bobby Loja MD HEMATOLOGY ORDERABLE S Performing Organization Address [facility]/ZIP Co de Phone Number [facility] [place] [address] * Potassium (06/14/2024 6:19 PM EST) Potassium 3.9 3.5 - 5.0 mMol/L 06/14/2024 6:52 PM EST [facility] Blood VENOUS BLOOD SPECIMEN / Unknown Venipuncture / Unknown 06/14/2024 6:19 PM EST 06/14/2024 6:28 PM EST Bobby Loja MD CHEMISTRY ORDERABLES Performing Organization Address [facility] Co de Phone Number [facility] [place] [address] * (ABNORMAL) POC, GLUCOSE (06/14/2024 6:03 PM EST) Glucometer, POC 201(H) 65 - 199 mg/dL 06/14/2024 6:03 PM EST [facility] Comment:Supplemental ranges: <140 mg/dL before meals <180 mg/dL all other times of the day. Blood CAPILLARY BLOOD / Unknown 06/14/2024 6:03 PM EST 06/14/2024 6:03 PM EST Bobby Loja MD POINT OF CARE TEST O RDERABLES Performing Organization Address [facility] Co de Phone Number [facility] [place] [address] * (ABNORMAL) Blood Gas, Arterial POC (06/14/2024 4:51 PM EST) pH, Arterial 7.32(L) 7.35 - 7.45 06/14/2024 4:[address] [facility] PCO2, Arterial 46(H) 35 - 45 mmHg 06/14/2024 4:[address] [facility] PO2, Arterial 85 85 - 104 mmHg 06/14/2024 4:[address] [facility] Bicarbonate, Arterial 23.1 20.0 - 26.0 mmol/L 06/14/2024 4:[address] [facility] Base Excess, Arterial -3.1(L) -3.0 - 3.0 mmol/L 06/14/2024 4:[address] [facility] Hemoglobin, Arterial 14.3 13.7 - 16.5 g/dL 06/14/2024 4:[address] [facility] Oxyhemoglobin, Arterial 94.7 94.0 - 97.0 % 06/14/2024 4:[address] [facility] Carboxyhemoglobin , Arterial 0.6 % 06/14/2024 4:[address] [facility] Comment: Nonsmokers: 0.5-1.5% COHB ?? Smokers: Variable ??but usually less than 10% ?? Toxic: 20-30% COHB ?? Lethal: Greater than 60% COHB Methemoglobin, Arterial 0.0 <=1.5 % 06/14/2024 4:[address] [facility] Sodium, Arterial 138 135 - 145 mmol/L 06/14/2024 4:[address] [facility] Potassium, Arterial 4.1 3.5 - 5.0 mmol/L 06/14/2024 4:[address] [facility] Chloride, Arterial 106 98 - 107 mmol/L 06/14/2024 4:[address] [facility] Lactate, Arterial 1.3 0.5 - 2.2 mmol/L 06/14/2024 4:[address] [facility] Fraction of Inspired Oxygen 40 % 06/14/2024 4:[address] [facility] PF Ratio 213 Ratio 06/14/2024 4:[address] [facility] Comment:PF ratio calculated using the non-temperature corrected pO2 result. IONIZED CALCIUM, ARTERIAL 1.16 1.15 - 1.33 mmol/L 06/14/2024 4:52 PM EST [facility] Glucose, Arterial 192 65 - 199 mg/dL 06/14/2024 4:52 PM EST [facility] Comment:Glucose Concentratio n >=200 mg/dL plus symptoms is consistent with Diabetes Mellitus. Blood ARTERIAL BLOOD / Unknown 06/14/2024 4:51 PM EST 06/14/2024 4:52 PM EST Bobby Loja MD POINT OF CARE TEST O NIKA Performing Organization Address [facility] Co de Phone Number [facility] [place] [address] * POC, GLUCOSE (06/14/2024 4:00 PM EST) Glucometer, POC 184 65 - 199 mg/dL 06/14/2024 4:01 PM EST [facility] Comment:Supplemental ranges: <140 mg/dL before meals <180 mg/dL all other times of the day. Blood CAPILLARY BLOOD / Unknown 06/14/2024 4:00 PM EST 06/14/2024 4:01 PM EST Bobby Loja MD POINT OF CARE TEST O NIKA Performing Organization Address City/[facility] Co de Phone Number [facility] [place] [address] * XR Chest One View (06/14/2024 3:05 PM EST) WORKSTATION ID [id number] DH RAD Anatomical Region Laterality Modality Chest N/A Digital Radiogra phy Impressions 06/14/2024 4:07 PM EST Interval median sternotomy and CABG. Enteric balloon pump is too low, projecting just below the left mainstem bronchus, advancement is recommended. I have personally reviewed the image(s) and the resident's interpretation and agree with the findings, Stuart Aponte MD at 06/14/2024 4:07 PM Thank you for letting us participate in the care of this patient. ??If you are a health care provider and have any questions regarding this report, please contact the number below. ??For patients who have questions please contact the health healthcare corporate account director that requested your imaging first. ? Electronically signed by: Stuart Aponte MD, [facility] ??([phone]), at 06/14/2024 4:07 PM Narrative 06/14/2024 4:07 PM EST EXAMINATION: XR CHEST ONE VIEW CLINICAL HISTORY: s/p cabg, check IABP position TECHNIQUE: 1 view of the chest COMPARISON: Chest radiograph 06/13/2024 FINDINGS: Lines and tubes: Interval retraction of intra-aortic balloon pump with marker projecting just below the left mainstem bronchus. Interval placement of a pulmonary artery catheter with tip overlying the right interlobar pulmonary artery. New mediastinal chest tubes in place. New endotracheal tube in satisfactory position. Interval median sternotomy and CABG with left atrial appendage exclusion clip in place. Biventricular ICD leads remain in place. The lung volumes are decreased. No pulmonary edema. No pleural effusion or pneumothorax.. Procedure Note Stuart Aponte MD - 06/14/2024 EXAMINATION: XR CHEST ONE VIEW CLINICAL HISTORY: s/p cabg, check IABP position TECHNIQUE: 1 view of the chest COMPARISON: Chest radiograph 06/13/2024 FINDINGS: Lines and tubes: Interval retraction of intra-aortic balloon pump withmarker projecting just below the left mainstem bronchus. Interval placement ofa pulmonary artery catheter with tip overlying the right interlobarpulmonary artery. New mediastinal chest tubes in place. New endotracheal tube in satisfactory position. Interval median sternotomy and CABG with left atrial appendage exclusionclip in place. Biventricular ICD leads remain in place. The lung volumes are decreased. No pulmonary edema. No pleural effusionor pneumothorax.. IMPRESSION Interval median sternotomy and CABG. Enteric balloon pump is too low,projecting just below the left mainstem bronchus, advancement is recommended. I have personally reviewed the image(s) and the resident's interpretationand agree with the findings, Stuart Aponte MD at 06/14/2024 4:07 PM Thank you for letting us participate in the care of this patient. If youare a health care provider and have any questions regarding this report,please contact the number below. For patients who have questions please contactthe health healthcare corporate account director that requested your imaging first. Electronically signed by: Stuart Aponte MD, [facility]([phone]), at 06/14/2024 4:07 PM Bobby Loja MD IMG DX ORDERABLES * (ABNORMAL) Blood Gas, Arterial POC (06/14/2024 2:52 PM EST) pH, Arterial 7.28(LLL) 7.35 - 7.45 06/14/2024 2:[address] [facility] PCO2, Arterial 50(H) 35 - 45 mmHg 06/14/2024 2:[address] [facility] PO2, Arterial 510(H) 85 - 104 mmHg 06/14/2024 2:[address] [facility] Bicarbonate, Arterial 22.8 20.0 - 26.0 mmol/L 06/14/2024 2:[address] [facility] Base Excess, Arterial -4.0(L) -3.0 - 3.0 mmol/L 06/14/2024 2:[address] [facility] Hemoglobin, Arterial 13.8 13.7 - 16.5 g/dL 06/14/2024 2:[address] [facility] Oxyhemoglobin, Arterial 99.3(H) 94.0 - 97.0 % 06/14/2024 2:[address] [facility] Carboxyhemoglobin , Arterial 0.6 % 06/14/2024 2:[address] [facility] Comment: Nonsmokers: 0.5-1.5% COHB ?? Smokers: Variable ??but usually less than 10% ?? Toxic: 20-30% COHB ?? Lethal: Greater than 60% COHB Methemoglobin, Arterial 0.1 <=1.5 % 06/14/2024 2:53 PM EST [facility] Sodium, Arterial 138 135 - 145 mmol/L 06/14/2024 2:53 PM EST [facility] Potassium, Arterial 4.2 3.5 - 5.0 mmol/L 06/14/2024 2:53 PM EST [facility] Chloride, Arterial 106 98 - 107 mmol/L 06/14/2024 2:[address] [facility] Lactate, Arterial 1.1 0.5 - 2.2 mmol/L 06/14/2024 2:[address] [facility] Fraction of Inspired Oxygen 100 % 06/14/2024 2:53 PM EST [facility] PF Ratio 510 Ratio 06/14/2024 2:53 PM EST [facility] Comment:PF ratio calculated using the non-temperature corrected pO2 result. IONIZED CALCIUM, ARTERIAL 1.15 1.15 - 1.33 mmol/L 06/14/2024 2:[address] [facility] Glucose, Arterial 169 65 - 199 mg/dL 06/14/2024 2:53 PM EST [facility] Comment:Glucose Concentratio n >=200 mg/dL plus symptoms is consistent with Diabetes Mellitus. Blood ARTERIAL BLOOD / Unknown 06/14/2024 2:52 PM EST 06/14/2024 2:53 PM EST Bobby Loja MD POINT OF CARE TEST O RDERABLES [facility] [place] [address] * EKG 12 Lead (06/14/2024 2:46 PM EST) Ventricular rate 80 BPM MUSE SYSTEM Atrial Rate 80 BPM MUSE SYSTEM P-R Interval 120 ms MUSE SYSTEM QRS Duration 108 ms MUSE SYSTEM Q-T Interval 454 ms MUSE SYSTEM QTC Calculated (Bezet) 523 ms MUSE SYSTEM Calculated P [place] 70 degrees MUSE SYSTEM Calculated R [place] 56 degrees MUSE SYSTEM Calculated T [place] 50 degrees MUSE SYSTEM INTERPRETATION AV dual-paced rhythm Abnormal ECG When compared with ECG of 03-JUN-2024 01:45, Vent. rate has increased BY ??17 BPM Confirmed by MD Marisol, Shaheen ([id number]) on 06/15/2024 1:57:23 PM MUSE SYSTEM 06/14/2024 2:46 PM EST 06/15/2024 1:57 PM EST Bobby Loja MD ECG ORDERABLES MUSE SYSTEM * Prepare RBC (06/14/2024 2:27 PM EST) Status Information Returned [facility] Product Identification RBC [facility] Unit Number [id number] [facility] Product Code [id number] [facility] Unit Blood Type OPOS [facility] Specimen Expiration Date [facility] Volulme 350 [facility] Issue Date / Time [facility] Status [facility] Returned [facility] Product Identification RBC [facility] Unit Number [id number] [facility] Product Code [id number] [facility] Unit Blood Type OPOS [facility] Specimen Expiration Date [facility] Volulme 350 [facility] Issue Date / Time [facility] Blood 06/14/2024 6:2 5 AM EST Haja Byrnes MD BLOOD BANK PRODUCT O RDERABLES [facility] [place] [address] * (ABNORMAL) Cooximetry, POC (06/14/2024 1:52 PM EST) pO2, Coox 58 mmHg 06/14/2024 1:[address] [facility] Hemoglobin, Coox 12.6(L) 13.7 - 16.5 g/dL 06/14/2024 1:[address] [facility] Oxyhemoglobin, Coox 85.5 % 06/14/2024 1:[address] [facility] Carboxyhemoglo bin, Coox 0.3 % 06/14/2024 1:[address] [facility] Comment: Nonsmokers: 0.5-1.5% COHB ?? Smokers: Variable ??but usually less than 10% ?? Toxic: 20-30% COHB ?? Lethal: Greater than 60% COHB Methemoglobin, Coox 0.6 <=1.5 % 06/14/2024 1:[address] [facility] Blood (Mixed Venous) 06/14/2024 1:52 PM EST 06/14/2024 1:55 PM EST Haja Byrnes MD POINT OF CARE TEST O RDERABLES [facility] [place] [address] * (ABNORMAL) Blood Gas, Arterial POC (06/14/2024 12:47 PM EST) pH, Arterial 7.33(L) 7.35 - 7.45 06/14/2024 12:[address] [facility] PCO2, Arterial 46(H) 35 - 45 mmHg 06/14/2024 12:[address] [facility] PO2, Arterial 358(H) 85 - 104 mmHg 06/14/2024 12:[address] [facility] Bicarbonate, Arterial 23.8 20.0 - 26.0 mmol/L 06/14/2024 12:[address] [facility] Base Excess, Arterial -2.1 -3.0 - 3.0 mmol/L 06/14/2024 12:48 PM EST [facility] Hemoglobin, Arterial 11.7(L) 13.7 - 16.5 g/dL 06/14/2024 12:[address] [facility] Oxyhemoglobin, Arterial 98.7(H) 94.0 - 97.0 % 06/14/2024 12:[address] [facility] Carboxyhemoglobin , Arterial 0.3 % 06/14/2024 12:[address] [facility] Comment: Nonsmokers: 0.5-1.5% COHB ?? Smokers: Variable ??but usually less than 10% ?? Toxic: 20-30% COHB ?? Lethal: Greater than 60% COHB Methemoglobin, Arterial 0.5 <=1.5 % 06/14/2024 12:[address] [facility] Sodium, Arterial 135 135 - 145 mmol/L 06/14/2024 12:[address] [facility] Potassium, Arterial 5.0 3.5 - 5.0 mmol/L 06/14/2024 12:[address] [facility] Chloride, Arterial 106 98 - 107 mmol/L 06/14/2024 12:[address] [facility] Lactate, Arterial 1.4 0.5 - 2.2 mmol/L 06/14/2024 12:[address] [facility] IONIZED CALCIUM, ARTERIAL 1.09(L) 1.15 - 1.33 mmol/L 06/14/2024 12:[address] [facility] Glucose, Arterial 157 65 - 199 mg/dL 06/14/2024 12:[address] [facility] Comment:Glucose Concentratio n >=200 mg/dL plus symptoms is consistent with Diabetes Mellitus. Blood ARTERIAL BLOOD / Unknown 06/14/2024 12:47 PM EST 06/14/2024 12:48 PM EST Haja Byrnes MD POINT OF CARE TEST O RDERABLES [facility] [place] [address] * (ABNORMAL) Cooximetry, POC (06/14/2024 12:42 PM EST) pO2, Coox 71 mmHg 06/14/2024 12:45 PM EST [facility] Hemoglobin, Coox 11.6(L) 13.7 - 16.5 g/dL 06/14/2024 12:45 PM EST [facility] Oxyhemoglobin, Coox 91.5 % 06/14/2024 12:45 PM EST [facility] Carboxyhemoglo bin, Coox 0.3 % 06/14/2024 12:45 PM EST [facility] Comment: Nonsmokers: 0.5-1.5% COHB ?? Smokers: Variable ??but usually less than 10% ?? Toxic: 20-30% COHB ?? Lethal: Greater than 60% COHB Methemoglobin, Coox 0.4 <=1.5 % 06/14/2024 12:45 PM EST [facility] Blood (Mixed Venous) 06/14/2024 12:42 PM EST 06/14/2024 12:45 PM EST Haja Byrnes MD POINT OF CARE TEST O RDERABLES [facility] [place] [address] * (ABNORMAL) Platelet count (06/14/2024 12:30 PM EST) Platelet 73(L) 145 - 357 x10(3)/mcL 06/14/2024 12:54 PM EST [facility] Blood ARTERIAL BLOOD / Unknown 06/14/2024 12:30 PM EST Comment:Pre-op diagnosis: CAD Bobby Loja MD HEMATOLOGY ORDERABLE S [facility] [place] [address] * (ABNORMAL) Hemoglobin and Hematocrit, blood (06/14/2024 12:30 PM EST) Hemoglobin 10.9(L) 13.7 - 16.5 g/dL 06/14/2024 12:54 PM EST [facility] Hematocrit 33.5(L) 40.5 - 48.5 % 06/14/2024 12:54 PM EST [facility] Comment:This result has been called to Danielle López by Satya Page on 06/14/2024 12:53:56, and has been read back. Blood ARTERIAL BLOOD / Unknown 06/14/2024 12:30 PM EST 06/14/2024 12:42 PM EST Comment:Pre-op diagnosis: CAD Bobby Loja MD HEMATOLOGY ORDERABLE S Performing Organization Address [facility] Co de Phone Number [facility] [place] [address] * APTT (06/14/2024 12:30 PM EST) Partial Thromboplastin Time 31 25 - 37 sec 06/14/2024 12:57 PM EST [facility] Comment: The PTT is NOT appropriate for heparin monitoring. Use the Anti-Xa level for heparin monitoring (HEP UFH) or LMWH monitoring (HEP LMW). A PTT less than 37 seconds generally indicates adequate hemostasis. Blood ARTERIAL BLOOD / Unknown 06/14/2024 12:30 PM EST 06/14/2024 12:42 PM EST Comment:Pre-op diagnosis: CAD Bobby Loja MD HEMATOLOGY ORDERABLE S Performing Organization Address City/[facility]/ZIP Co de Phone Number [facility] [place] [address] * (ABNORMAL) Prothrombin Time (06/14/2024 12:30 PM EST) Prothrombin Time 16.8(H) 9.4 - 12.5 sec 06/14/2024 12:57 PM EST [facility] International Normalization Ratio 1.5 <=4.9 06/14/2024 12:57 PM EST [facility] Comment: An INR < 2.0 [...] 06/14/2024 12:42 PM EST Comment:Pre-op diagnosis: CAD Bobby Loja MD HEMATOLOGY ORDERABLE S Performing Organization Address [facility]/ZIP Co de Phone Number [facility] [place] [address] * Fibrinogen (06/14/2024 12:30 PM EST) Fibrinogen 211 200 - 393 mg/dL 06/14/2024 12:57 PM EST [facility] Comment: A fibrinogen level >100 mg/dL is adequate for hemostasis in most patients without underlying bleeding disorders. Blood ARTERIAL BLOOD / Unknown 06/14/2024 12:30 PM EST 06/14/2024 12:42 PM EST Comment:Pre-op diagnosis: CAD Bobby Loja MD HEMATOLOGY ORDERABLE S Performing Organization Address City/[facility] Co de Phone Number [facility] [place] [address] * (ABNORMAL) Blood Gas, Arterial POC (06/14/2024 12:15 PM EST) pH, Arterial 7.38 7.35 - 7.45 06/14/2024 12:16 PM EST [facility] PCO2, Arterial 40 35 - 45 mmHg 06/14/2024 12:[address] [facility] Bicarbonate, Arterial 22.9 20.0 - 26.0 mmol/L 06/14/2024 12:16 PM EST [facility] Base Excess, Arterial -2.3 -3.0 - 3.0 mmol/L 06/14/2024 12:[address] [facility] Hemoglobin, Arterial 11.4(L) 13.7 - 16.5 g/dL 06/14/2024 12:[address] [facility] Oxyhemoglobin, Arterial 98.8(H) 94.0 - 97.0 % 06/14/2024 12:[address] [facility] Carboxyhemoglobin , Arterial 0.3 % 06/14/2024 12:[address] [facility] Comment: Nonsmokers: 0.5-1.5% COHB ?? Smokers: Variable ??but usually less than 10% ?? Toxic: 20-30% COHB ?? Lethal: Greater than 60% COHB Methemoglobin, Arterial 0.6 <=1.5 % 06/14/2024 12:[address] [facility] Sodium, Arterial 134(L) 135 - 145 mmol/L 06/14/2024 12:[address] [facility] Potassium, Arterial 5.4(H) 3.5 - 5.0 mmol/L 06/14/2024 12:[address] [facility] Chloride, Arterial 105 98 - 107 mmol/L 06/14/2024 12:[address] [facility] Lactate, Arterial 1.3 0.5 - 2.2 mmol/L 06/14/2024 12:[address] [facility] IONIZED CALCIUM, ARTERIAL 1.08(L) 1.15 - 1.33 mmol/L 06/14/2024 12:[address] [facility] Glucose, Arterial 161 65 - 199 mg/dL 06/14/2024 12:[address] [facility] Comment:Glucose Concentratio n >=200 mg/dL plus symptoms is consistent with Diabetes Mellitus. Blood ARTERIAL BLOOD / Unknown 06/14/2024 12:15 PM EST 06/14/2024 12:16 PM EST Haja Byrnes MD POINT OF CARE TEST O NIKA [facility] [place] [address] * (ABNORMAL) Blood Gas, Arterial POC (06/14/2024 11:51 AM EST) pH, Arterial 7.40 7.35 - 7.45 06/14/2024 11:[address] [facility] PCO2, Arterial 41 35 - 45 mmHg 06/14/2024 11:[address] [facility] PO2, Arterial 332(H) 85 - 104 mmHg 06/14/2024 11:[address] [facility] Bicarbonate, Arterial 24.7 20.0 - 26.0 mmol/L 06/14/2024 11:[address] [facility] Base Excess, Arterial -0.1 -3.0 - 3.0 mmol/L 06/14/2024 11:[address] [facility] Hemoglobin, Arterial 11.1(L) 13.7 - 16.5 g/dL 06/14/2024 11:[address] [facility] Oxyhemoglobin, Arterial 98.7(H) 94.0 - 97.0 % 06/14/2024 11:[address] [facility] Carboxyhemoglobin , Arterial 0.3 % 06/14/2024 11:[address] [facility] Comment: Nonsmokers: 0.5-1.5% COHB ?? Smokers: Variable ??but usually less than 10% ?? Toxic: 20-30% COHB ?? Lethal: Greater than 60% COHB Methemoglobin, Arterial 0.4 <=1.5 % 06/14/2024 11:[address] [facility] Sodium, Arterial 135 135 - 145 mmol/L 06/14/2024 11:[address] [facility] Potassium, Arterial 5.7(H) 3.5 - 5.0 mmol/L 06/14/2024 11:[address] [facility] Chloride, Arterial 105 98 - 107 mmol/L 06/14/2024 11:[address] [facility] Lactate, Arterial 1.2 0.5 - 2.2 mmol/L 06/14/2024 11:52 AM EST [facility] IONIZED CALCIUM, ARTERIAL 1.10(L) 1.15 - 1.33 mmol/L 06/14/2024 11:[address] [facility] Glucose, Arterial 148 65 - 199 mg/dL 06/14/2024 11:52 AM EST [facility] Comment:Glucose Concentratio n >=200 mg/dL plus symptoms is consistent with Diabetes Mellitus. Blood ARTERIAL BLOOD / Unknown 06/14/2024 11:51 AM EST 06/14/2024 11:52 AM EST Haja Byrnes MD POINT OF CARE TEST O RDERABLES [facility] [place] [address] * (ABNORMAL) Blood Gas, Arterial POC (06/14/2024 11:27 AM EST) pH, Arterial 7.38 7.35 - 7.45 06/14/2024 11:[address] [facility] PCO2, Arterial 37 35 - 45 mmHg 06/14/2024 11:[address] [facility] PO2, Arterial 348(H) 85 - 104 mmHg 06/14/2024 11:[address] [facility] Bicarbonate, Arterial 21.1 20.0 - 26.0 mmol/L 06/14/2024 11:[address] [facility] Base Excess, Arterial -4.1(L) -3.0 - 3.0 mmol/L 06/14/2024 11:[address] [facility] Hemoglobin, Arterial 11.0(L) 13.7 - 16.5 g/dL 06/14/2024 11:[address] [facility] Oxyhemoglobin, Arterial 98.7(H) 94.0 - 97.0 % 06/14/2024 11:[address] [facility] Carboxyhemoglobin , Arterial 0.3 % 06/14/2024 11:[address] [facility] Comment: Nonsmokers: 0.5-1.5% COHB ?? Smokers: Variable ??but usually less than 10% ?? Toxic: 20-30% COHB ?? Lethal: Greater than 60% COHB Methemoglobin, Arterial 0.4 <=1.5 % 06/14/2024 11:[address] [facility] Sodium, Arterial 132(L) 135 - 145 mmol/L 06/14/2024 11:[address] [facility] Potassium, Arterial 5.8(H) 3.5 - 5.0 mmol/L 06/14/2024 11:[address] [facility] Chloride, Arterial 105 98 - 107 mmol/L 06/14/2024 11:[address] [facility] Lactate, Arterial 1.1 0.5 - 2.2 mmol/L 06/14/2024 11:[address] [facility] IONIZED CALCIUM, ARTERIAL 1.03(L) 1.15 - 1.33 mmol/L 06/14/2024 11:[address] [facility] Glucose, Arterial 147 65 - 199 mg/dL 06/14/2024 11:[address] [facility] Comment:Glucose Concentratio n >=200 mg/dL plus symptoms is consistent with Diabetes Mellitus. Blood ARTERIAL BLOOD / Unknown 06/14/2024 11:27 AM EST 06/14/2024 11:28 AM EST Haja Byrnes MD POINT OF CARE TEST O RDERABLES [facility] [place] [address] * (ABNORMAL) Scan, Peripheral Blood (06/14/2024 11:23 AM EST) RBC Morphology Abnormal 06/14/2024 11:[address] [facility] Platelet Estimate Decreased(A) Normal 06/14/2024 11:[address] [facility] Aretha cells 1-5 /HPF 06/14/2024 11:59 AM EST [facility] Blood ARTERIAL BLOOD / Unknown 06/14/2024 11:23 AM EST 06/14/2024 11:27 AM EST Bobby Loja MD HEMATOLOGY ORDERABLE S Performing Organization Address City/[facility]/ZIP Co de Phone Number [facility] [place] [address] * (ABNORMAL) Platelet count (06/14/2024 11:23 AM EST) Platelet 86(L) 145 - 357 x10(3)/mcL 06/14/2024 11:59 AM EST [facility] Blood ARTERIAL BLOOD / Unknown 06/14/2024 11:23 AM EST Comment:Pre-op diagnosis: CAD Bobby Loja MD HEMATOLOGY ORDERABLE S Performing Organization Address [facility] Co de Phone Number [facility] [place] [address] * (ABNORMAL) Hemoglobin and Hematocrit, blood (06/14/2024 11:23 AM EST) Hemoglobin 9.8(L) 13.7 - 16.5 g/dL 06/14/2024 11:59 AM EST [facility] Comment:This result has been called to Danielle López by Satya Page on 06/14/2024 11:58:33. Hematocrit 30.5(L) 40.5 - 48.5 % 06/14/2024 11:59 AM EST [facility] Comment:This result has been called to Danielle López by Satya Page on 06/14/2024 11:58:40, and has been read back. Blood ARTERIAL BLOOD / Unknown 06/14/2024 11:23 AM EST 06/14/2024 11:27 AM EST Comment:Pre-op diagnosis: CAD Bobby Loja MD HEMATOLOGY ORDERABLE S [facility] [place] [address] * (ABNORMAL) Blood Gas, Arterial POC (06/14/2024 10:58 AM EST) pH, Arterial 7.38 7.35 - 7.45 06/14/2024 10:[address] [facility] PCO2, Arterial 43 35 - 45 mmHg 06/14/2024 10:[address] [facility] PO2, Arterial 401(H) 85 - 104 mmHg 06/14/2024 10:[address] [facility] Bicarbonate, Arterial 24.8 20.0 - 26.0 mmol/L 06/14/2024 10:[address] [facility] Base Excess, Arterial -0.5 -3.0 - 3.0 mmol/L 06/14/2024 10:[address] [facility] Hemoglobin, Arterial 11.9(L) 13.7 - 16.5 g/dL 06/14/2024 10:[address] [facility] Oxyhemoglobin, Arterial 99.0(H) 94.0 - 97.0 % 06/14/2024 10:[address] [facility] Carboxyhemoglobin , Arterial 0.3 % 06/14/2024 10:[address] [facility] Comment: Nonsmokers: 0.5-1.5% COHB ?? Smokers: Variable ??but usually less than 10% ?? Toxic: 20-30% COHB ?? Lethal: Greater than 60% COHB Methemoglobin, Arterial 0.3 <=1.5 % 06/14/2024 10:[address] [facility] Sodium, Arterial 128(L) 135 - 145 mmol/L 06/14/2024 10:[address] [facility] Potassium, Arterial 6.6(HHH) 3.5 - 5.0 mmol/L 06/14/2024 10:[address] [facility] Chloride, Arterial 99 98 - 107 mmol/L 06/14/2024 10:[address] [facility] Lactate, Arterial 1.3 0.5 - 2.2 mmol/L 06/14/2024 10:[address] [facility] IONIZED CALCIUM, ARTERIAL 1.00(L) 1.15 - 1.33 mmol/L 06/14/2024 10:[address] [facility] Glucose, Arterial 155 65 - 199 mg/dL 06/14/2024 10:59 AM EST [facility] Comment:Glucose Concentratio n >=200 mg/dL plus symptoms is consistent with Diabetes Mellitus. Blood ARTERIAL BLOOD / Unknown 06/14/2024 10:58 AM EST 06/14/2024 10:59 AM EST Haja Byrnes MD POINT OF CARE TEST O RDERABLES [facility] [place] [address] * (ABNORMAL) Blood Gas, Arterial POC (06/14/2024 10:26 AM EST) pH, Arterial 7.29(LLL) 7.35 - 7.45 06/14/2024 10:[address] [facility] PCO2, Arterial 43 35 - 45 mmHg 06/14/2024 10:[address] [facility] PO2, Arterial 369(H) 85 - 104 mmHg 06/14/2024 10:[address] [facility] Bicarbonate, Arterial 19.9(L) 20.0 - 26.0 mmol/L 06/14/2024 10:[address] [facility] Base Excess, Arterial -6.7(L) -3.0 - 3.0 mmol/L 06/14/2024 10:[address] [facility] Hemoglobin, Arterial 12.6(L) 13.7 - 16.5 g/dL 06/14/2024 10:[address] [facility] Oxyhemoglobin, Arterial 99.1(H) 94.0 - 97.0 % 06/14/2024 10:[address] [facility] Carboxyhemoglobin , Arterial 0.1 % 06/14/2024 10:[address] [facility] Comment: Nonsmokers: 0.5-1.5% COHB ?? Smokers: Variable ??but usually less than 10% ?? Toxic: 20-30% COHB ?? Lethal: Greater than 60% COHB Methemoglobin, Arterial 0.4 <=1.5 % 06/14/2024 10:[address] [facility] Sodium, Arterial 129(L) 135 - 145 mmol/L 06/14/2024 10:[address] [facility] Potassium, Arterial 5.0 3.5 - 5.0 mmol/L 06/14/2024 10:[address] [facility] Chloride, Arterial 99 98 - 107 mmol/L 06/14/2024 10:[address] [facility] Lactate, Arterial 0.9 0.5 - 2.2 mmol/L 06/14/2024 10:[address] [facility] IONIZED CALCIUM, ARTERIAL 1.05(L) 1.15 - 1.33 mmol/L 06/14/2024 10:[address] [facility] Glucose, Arterial 149 65 - 199 mg/dL 06/14/2024 10:[address] [facility] Comment:Glucose Concentratio n >=200 mg/dL plus symptoms is consistent with Diabetes Mellitus. Blood ARTERIAL BLOOD / Unknown 06/14/2024 10:26 AM EST 06/14/2024 10:27 AM EST Hjaa Byrnes MD POINT OF CARE TEST O RDERABLES [facility] [place] [address] * (ABNORMAL) Blood Gas, Arterial POC (06/14/2024 10:25 AM EST) pH, Arterial 7.26(LLL) 7.35 - 7.45 06/14/2024 10:[address] [facility] PCO2, Arterial 48(H) 35 - 45 mmHg 06/14/2024 10:[address] [facility] Bicarbonate, Arterial 21.2 20.0 - 26.0 mmol/L 06/14/2024 10:[address] [facility] Base Excess, Arterial -5.8(L) -3.0 - 3.0 mmol/L 06/14/2024 10:[address] [facility] Hemoglobin, Arterial 12.5(L) 13.7 - 16.5 g/dL 06/14/2024 10:[address] [facility] Oxyhemoglobin, Arterial 82.3(L) 94.0 - 97.0 % 06/14/2024 10:[address] [facility] Carboxyhemoglobin , Arterial 0.5 % 06/14/2024 10:[address] [facility] Comment: Nonsmokers: 0.5-1.5% COHB ?? Smokers: Variable ??but usually less than 10% ?? Toxic: 20-30% COHB ?? Lethal: Greater than 60% COHB Methemoglobin, Arterial 0.5 <=1.5 % 06/14/2024 10:[address] [facility] Sodium, Arterial 131(L) 135 - 145 mmol/L 06/14/2024 10:[address] [facility] Potassium, Arterial 4.6 3.5 - 5.0 mmol/L 06/14/2024 10:[address] [facility] Chloride, Arterial 103 98 - 107 mmol/L 06/14/2024 10:[address] [facility] Lactate, Arterial 0.8 0.5 - 2.2 mmol/L 06/14/2024 10:[address] [facility] IONIZED CALCIUM, ARTERIAL 0.91(LLL) 1.15 - 1.33 mmol/L 06/14/2024 10:[address] [facility] Glucose, Arterial 148 65 - 199 mg/dL 06/14/2024 10:[address] [facility] Comment:Glucose Concentratio n >=200 mg/dL plus symptoms is consistent with Diabetes Mellitus. Blood ARTERIAL BLOOD / Unknown 06/14/2024 10:25 AM EST 06/14/2024 10:26 AM EST Haja Byrnes MD POINT OF CARE TEST O RDERABLES [facility] [place] [address] * Surgical Pathology (06/14/2024 9:53 AM EST) Case Report Surgical Pathology Report ? Case: [id number] ? Authorizing Provider: ??Bobby Loja MD ? Collected: ? 06/14/2024 0953 ? Ordering Location: ? Main Operating Room [facility] ?? Received: ?06/14/2024 1413 ? [facility] ([facility] ? Hospital ? Pathologist: ? Sandra Salas MD ? Specimens: ?? A) - Soft Tissue Mass, mediastinal mass ? B) - Heart, Atrial Appendage, Left ? 06/18/2024 10:[address] [facility] Final Diagnosis A. Soft Tissue Mass, Mediastinal Mass, Excision: - Atrophic thymic tissue B. Heart, Atrial Appendage, Left, Excision: - Mild myocyte hypertrophy 06/18/2024 10:[address] [facility] Clinical Information A. Soft Tissue Mass, mediastinal mass Soft tissue mass Mediastinal mass B. Heart, Atrial Appendage, Left, *Other - as specified in Clinical Information MARIALUISA 06/18/2024 10:[address] [facility] Gross Description A. Soft Tissue Mass, mediastinal mass. A - Labeled/Fixative : Mediastinal mass, fresh. Quantity/Size: Single, 7.2 x 5.3 x 1.2 cm. Tissue Description: Unoriented, intact portion of soft, rodriguez-yellow, lobulated tissue. The cut surface is homogenously pale-rodriguez, yellow and lobulated. No lesions or nodules are identified. Inking: External surface inked black Sections/Process ing: Clerical Manager sections in 4 cassettes labeled A1-A4. cmk B. Heart, Atrial Appendage, Left, . B - Labeled/Fixative : Heart, atrial appendage, left, fresh. Quantity/Size: Single, 3.3 x 1.5 x 0.8 cm. Tissue Description: Portion of heart tissue consisting of rodriguez-white, semitranslucent, smooth endocardium with rodriguez-brown muscular myocardium and thin translucent epicardium with adherent adipose tissue. No areas of discoloration identified. Sections/Process ing: Clerical Manager sections in 1 cassette labeled B1. cmk 06/18/2024 10:[address] [facility] Result Note Routine 06/18/2024 10:[address] [facility] Tissue SOFT TISSUE MASS / Unknown 06/14/2024 9:53 AM EST 06/14/2024 2:13 PM EST Comment:Mediastinal mass Tissue specimen (specimen) LEFT ATRIAL APPENDAGE ABSENT / Unknown 06/14/2024 10:54 AM EST 06/14/2024 2:13 PM EST Comment:MARIALUISA Bobby Loja MD PATHOLOGY/CYTOLOGY O RDERABLES [facility] [place] [address] * Cooximetry, POC (06/14/2024 9:00 AM EST) pO2, Coox 57 mmHg 06/14/2024 9:[address] [facility] PO2 Corrected, COOX 50 mmHg 06/14/2024 9:[address] [facility] Hemoglobin, Coox 14.3 13.7 - 16.5 g/dL 06/14/2024 9:[address] [facility] Oxyhemoglobin, Coox 86.2 % 06/14/2024 9:[address] [facility] Carboxyhemoglobi n, Coox 0.3 % 06/14/2024 9:[address] [facility] Comment: Nonsmokers: 0.5-1.5% COHB ?? Smokers: Variable ??but usually less than 10% ?? Toxic: 20-30% COHB ?? Lethal: Greater than 60% COHB Methemoglobin, Coox 0.3 <=1.5 % 06/14/2024 9:[address] [facility] Temperature Coox 35.2 C 06/14/20 24 9:[address] [facility] Blood (Mixed Venous) 06/14/2024 9:00 AM EST 06/14/2024 9:04 AM EST Haja Byrnes MD POINT OF CARE TEST O RDERABLES [facility] [place] [address] * (ABNORMAL) Blood Gas, Arterial POC (06/14/2024 8:39 AM EST) pH, Arterial 7.37 7.35 - 7.45 06/14/2024 8:[address] [facility] PCO2, Arterial 42 35 - 45 mmHg 06/14/2024 8:[address] [facility] PO2, Arterial 341(H) 85 - 104 mmHg 06/14/2024 8:[address] [facility] Bicarbonate, Arterial 23.7 20.0 - 26.0 mmol/L 06/14/2024 8:[address] [facility] Base Excess, Arterial -1.6 -3.0 - 3.0 mmol/L 06/14/2024 8:[address] [facility] Hemoglobin, Arterial 15.2 13.7 - 16.5 g/dL 06/14/2024 8:[address] [facility] Oxyhemoglobin, Arterial 99.2(H) 94.0 - 97.0 % 06/14/2024 8:[address] [facility] Carboxyhemoglobin , Arterial 0.1 % 06/14/2024 8:[address] [facility] Comment: Nonsmokers: 0.5-1.5% COHB ?? Smokers: Variable ??but usually less than 10% ?? Toxic: 20-30% COHB ?? Lethal: Greater than 60% COHB Methemoglobin, Arterial 0.3 <=1.5 % 06/14/2024 8:[address] [facility] Sodium, Arterial 136 135 - 145 mmol/L 06/14/2024 8:[address] [facility] Potassium, Arterial 4.2 3.5 - 5.0 mmol/L 06/14/2024 8:[address] [facility] Chloride, Arterial 102 98 - 107 mmol/L 06/14/2024 8:[address] [facility] Lactate, Arterial 0.9 0.5 - 2.2 mmol/L 06/14/2024 8:[address] [facility] IONIZED CALCIUM, ARTERIAL 1.17 1.15 - 1.33 mmol/L 06/14/2024 8:[address] [facility] Glucose, Arterial 121 65 - 199 mg/dL 06/14/2024 8:[address] [facility] Comment:Glucose Concentratio n >=200 mg/dL plus symptoms is consistent with Diabetes Mellitus. Blood ARTERIAL BLOOD / Unknown 06/14/2024 8:39 AM EST 06/14/2024 8:40 AM EST Haja Byrnes MD POINT OF CARE TEST O RDERABLES [facility] [place] [address] * Transesophageal Echo/OR (06/14/2024 7:20 AM EST) Anatomical Region Laterality Modality Cardiac Other 06/14/2024 7:20 AM EST Narrative 06/14/2024 4:36 PM EST Version: 2 Study ID: [id number] [address] [place] [address] ?OR Transesophageal Echo Report Name: TYSON GEORGE L ? Study Date: 06/14/2024, 7: 20 AM ?Patient Location: ^OR16^A : 1955 Age: 69 Years Gender: Male Ordering Physician: BOBBY LOJA Referring Physician: NEHAL QUINTERO ?Conclusions This [...] of this mass after consultation with other safemaker experts and the decision was made by [...] aorta. Other Measurements & Calculations Ao Max Muriel: 106.6 cm/sec ?Ao mean velocity: 74.5 cm/sec [...] MD - 06/14/2024 Version: 2 Study ID: [id number] [address] [place] [address] ORTransesophageal Echo Report Name: GEORGE MEHTA Study Date: 06/14/2024,7: 20 AM Patient Location:^OR16^A : 1955 Age: 69 Years Gender: Male Ordering Physician: BOBBY LOJA Referring Physician: NEHAL QUINTERO This KAREN is done at the request [...] of this mass after consultation with other safemaker experts and thedecision was made by surgeon [...] aorta. Other Measurements & Calculations Ao Max Muriel: 106.6 cm/sec Ao mean velocity: 74.5cm/sec Ao [...] Hosea Ardon MD 06/14/2024, 4: 38 PM Bobby Loja MD ECHO ORDERABLES * POC, GLUCOSE (06/14/2024 7:11 AM EST) Glucometer, POC 111 65 - 199 mg/dL 06/14/2024 7:12 AM EST [facility] Comment:Supplemental ranges: <140 mg/dL before meals <180 mg/dL all other times of the day. Blood CAPILLARY BLOOD / Unknown 06/14/2024 7:11 AM EST 06/14/2024 7:12 AM EST Haja Byrnes MD POINT OF CARE TEST O RDERABLES [facility] [place] [address] * POC, GLUCOSE (06/14/2024 4:30 AM EST) Glucometer, POC 85 65 - 199 mg/dL 06/14/2024 4:30 AM EST [facility] Comment:Supplemental ranges: <140 mg/dL before meals <180 mg/dL all other times of the day. Blood CAPILLARY BLOOD / Unknown 06/14/2024 4:30 AM EST 06/14/2024 4:30 AM EST Haja Byrnes MD POINT OF CARE TEST O RDERABLES Performing Organization Address [facility]/ZIP Co de Phone Number [facility] [place] [address] * (ABNORMAL) Heparin (unfractionated) Level (06/14/2024 12:12 AM EST) UF Heparin 1.02(HHH) IU/mL 06/14/2024 12:46 AM EST [facility] Comment: Heparin (anti-Xa) levels should [...] AM EST 06/14/2024 12:29 AM EST Shahnaz Scanlon MD HEMATOLOGY ORDERABLE S Performing Organization Address City/[facility]/ZIP Co de Phone Number [facility] [place] [address] * (ABNORMAL) CBC (with Diff) (06/14/2024 12:12 AM EST) White Blood Cell 10.51(H) 4.00 - 9.50 x10(3)/mc L 06/14/2024 12:38 AM EST [facility] Red Blood Cell 4.99 4.58 - 5.54 x10(6)/mc L 06/14/2024 12:38 AM EST [facility] Hemoglobin 14.9 13.7 - 16.5 g/dL 06/14/2024 12:[address] [facility] Hematocrit 45.9 40.5 - 48.5 % 06/14/2024 12:[address] [facility] Mean Cell Volume 92.0 82.9 - 93.1 fL 06/14/2024 12:[address] [facility] Mean Cell Hemoglobin 29.9 27.5 - 32.1 pg 06/14/2024 12:[address] [facility] Mean Cell Hemoglobin Concentration 32.5 32.0 - 35.7 g/dL 06/14/2024 12:[address] [facility] Platelet 162 145 - 357 x10(3)/mc L 06/14/2024 12:[address] [facility] Mean Platelet Volume 10.1 7.6 - 12.9 fL 06/14/2024 12:[address] [facility] RDW Standard Deviation 46.9(H) 36.0 - 45.0 fL 06/14/2024 12:[address] [facility] RDW coefficient of variation 13.8 11.4 - 13.8 % 06/14/2024 12:[address] [facility] NRBC% auto 0.0 % 06/14/2024 12:[address] [facility] NRBC Absolute <0.01 <0.01 x10(3)/mc L 06/14/2024 12:[address] [facility] Neutrophil % 56.7 % 06/14/2024 12:[address] [facility] Neutrophil Absolute (ANC) - Automated 5.96 1.70 - 6.10 x10(3)/mc L 06/14/2024 12:[address] [facility] Lymph % 26.8 % 06/14/2024 12:[address] [facility] Lymph Absolute 2.82 0.90 - 3.20 x10(3)/mc L 06/14/2024 12:[address] [facility] Monocyte % 11.2 % 06/14/2024 12:38 AM EST [facility] Monocyte Absolute 1.18(H) 0.30 - 0.90 x10(3)/mc L 06/14/2024 12:[address] [facility] Eos % 3.9 % 06/14/2024 12:[address] [facility] Eos Absolute 0.41(H) 0.00 - 0.40 x10(3)/mc L 06/14/2024 12:38 AM EST [facility] Basophil % 0.8 % 06/14/2024 12:[address] [facility] Baso Absolute 0.08 0.00 - 0.10 x10(3)/mc L 06/14/2024 12:[address] [facility] Immature Gran % 0.6 % 12:[address] [facility] Immature Gran Absolute 0.06(H) 0.00 - 0.04 x10(3)/mc L 06/14/2024 12:[address] [facility] Blood VENOUS BLOOD SPECIMEN / Unknown Venipuncture / Unknown 06/14/2024 12:12 AM EST 06/14/2024 12:29 AM EST Shahnaz Scanlon MD HEMATOLOGY ORDERABLE S [facility] [place] [address] * Magnesium (06/14/2024 12:12 AM EST) Magnesium 0.74 0.69 - 1.07 mMol/L 06/14/2024 12:57 AM EST [facility] Blood VENOUS BLOOD SPECIMEN / Unknown Venipuncture / Unknown 06/14/2024 12:12 AM EST 06/14/2024 12:29 AM EST Shahnaz Scanlon MD CHEMISTRY ORDERABLES [facility] [place] [address] * (ABNORMAL) Basic Metabolic Panel (06/14/2024 12:12 AM EST) Glucose 97 65 - 199 mg/dL 06/14/2024 12:[address] [facility] Comment:Glucose Concentratio n >=200 mg/dL plus symptoms is consistent with Diabetes Mellitus. Blood Urea Nitrogen 25(H) 10 - 20 mg/dL 06/14/2024 12:[address] [facility] Creatinine 1.14 0.80 - 1.50 mg/dL 06/14/2024 12:[address] [facility] Sodium 135 135 - 145 mMol/L 06/14/2024 12:[address] [facility] Potassium 4.1 3.5 - 5.0 mMol/L 06/14/2024 12:[address] [facility] Chloride 100 98 - 107 mMol/L 06/14/2024 12:[address] [facility] Carbon Dioxide 25 22 - 31 mMol/L 06/14/2024 12:[address] [facility] Anion Gap 10 5 - 15 mMol/L 06/14/2024 12:[address] [facility] Calcium 9.5 8.5 - 10.5 mg/dL 06/14/2024 12:[address] [facility] Est Glomerular Filtration Rate - Male 70 mL/min/1. 73 m?? 06/14/2024 12:[address] [facility] Comment: This patient's estimated GFR [...] AM EST 06/14/2024 12:29 AM EST Shahnaz Scanlon MD CHEMISTRY ORDERABLES Performing Organization Address [facility] Co de Phone Number [facility] [place] [address] * Scan Doc: Implantable Devices (06/14/2024 12:00 AM EST) Narrative 06/14/2024 12:00 AM EST Ordered by an unspecified provider. Scanning Provider MEDIA MGR SCAN EXT O RDR/RSLT * POC, GLUCOSE (06/13/2024 11:12 PM EST) Glucometer, POC 104 65 - 199 mg/dL 06/13/2024 11:13 PM EST [facility] Comment:Supplemental ranges: <140 mg/dL before meals <180 mg/dL all other times of the day. Blood CAPILLARY BLOOD / Unknown 06/13/2024 11:12 PM EST 06/13/2024 11:13 PM EST Haja Byrnes MD POINT OF CARE TEST O RDERAPIETER Performing Organization Address [facility] Co de Phone Number [facility] [place] [address] * (ABNORMAL) POC, GLUCOSE (06/13/2024 8:03 PM EST) Glucometer, POC 206(H) 65 - 199 mg/dL 06/13/2024 8:03 PM EST [facility] Comment:Supplemental ranges: <140 mg/dL before meals <180 mg/dL all other times of the day. Blood CAPILLARY BLOOD / Unknown 06/13/2024 8:03 PM EST 06/13/2024 8:03 PM EST Haja Byrnes MD POINT OF CARE TEST O RDERABLES Performing Organization Address City/[facility]/ZIP Co de Phone Number [facility] [place] [address] * Heparin (unfractionated) Level (06/13/2024 4:11 PM EST) Pathologist [facility] Heparin 0.76 IU/mL 06/13/2024 4:24 PM EST [facility] Comment: Heparin (anti-Xa) levels should [...] / Unknown 06/13/2024 4:11 PM EST 06/13/2024 4:15 PM EST Shahnaz Scanlon MD HEMATOLOGY ORDERABLE S Performing Organization Address City/[facility]/ZIP Co de Phone Number [facility] [place] [address] * ABORH RECHECK (06/13/2024 4:11 PM EST) Pathologist [facility] ABORH Recheck O POSITIVE 06/13/2024 4:50 PM EST [facility] Blood VENOUS BLOOD SPECIMEN / Unknown Venipuncture / Unknown 06/13/2024 4:11 PM EST 06/13/2024 4:19 PM EST Haja Byrnes MD BLOOD BANK LAB ORDER EUSEBIA Performing Organization Address City/[facility]/ZIP Co de Phone Number [facility] [place] [address] * (ABNORMAL) POC, GLUCOSE (06/13/2024 4:09 PM EST) [facility] Glucometer, POC 216(H) 65 - 199 mg/dL 06/13/2024 4:10 PM EST [facility] Comment:Supplemental ranges: <140 mg/dL before meals <180 mg/dL all other times of the day. Blood CAPILLARY BLOOD / Unknown 06/13/2024 4:09 PM EST 06/13/2024 4:10 PM EST Haja Byrnes MD POINT OF CARE TEST O RDERABLES [facility] [place] [address] * Type and screen ([facility]/CGP/RAFITA) (06/13/2024 11:53 AM EST) [facility] ABORH Type O POSITIVE 06/13/2024 1:16 PM EST [facility] PATIENT HISTORY Not Found 06/13/2024 1:16 PM EST [facility] Expires at [id number] on: 06/16/2024 06/13/2024 1:16 PM EST [facility] ANTIBODY SCREEN AUTOMATED Negative 06/13/2024 1:16 PM EST [facility] T&S only valid at [facility] 06/13/2024 1:16 PM EST [facility] Blood VENOUS BLOOD SPECIMEN / Unknown Venipuncture / Unknown 06/13/2024 11:53 AM EST 06/13/2024 11:56 AM EST Narrative [facility] - 06/13/2024 1:16 PM EST This Type and Screen result is only valid at the [facility] Haja Byrnes MD BLOOD BANK LAB ORDER [facility] [place] [address] * POC, GLUCOSE (06/13/2024 11:50 AM EST) Glucometer, POC 178 65 - 199 mg/dL 06/13/2024 11:51 AM EST [facility] Comment:Supplemental ranges: <140 mg/dL before meals <180 mg/dL all other times of the day. Blood CAPILLARY BLOOD / Unknown 06/13/2024 11:50 AM EST 06/13/2024 11:51 AM EST Haja Byrnes MD POINT OF CARE TEST O RDERABLES [facility] [place] [address] * XR Chest One View (06/13/2024 10:35 AM EST) [facility] WORKSTATION ID [id number] RAD Anatomical Region Laterality Modality Chest N/A Digital Radiogra phy Impressions 06/13/2024 10:43 AM EST 1. Infrarenal aortic balloon pump tip at the aortic arch. 2. Stable cardiomegaly. No acute cardiopulmonary abnormality. Thank you for letting us participate in the care of this patient. ??If you are a health care provider and have any questions regarding this report, please contact the number below. ??For patients who have questions please contact the health healthcare corporate account director that requested your imaging first. ? Narrative 06/13/2024 10:43 AM EST EXAMINATION: XR CHEST ONE VIEW CLINICAL HISTORY: IABP insertion and positioning TECHNIQUE: AP portable chest radiograph, 30 degrees upright (2 images) COMPARISON: Chest radiographs June 03 and June 07, 2024 CT chest June 03, 2024 FINDINGS: -Inferiorly inserted intra-aortic balloon pump tip at the aortic arch. -Unchanged 3-lead left upper chest pulse generator. No lead fracture or change in position. Lungs are clear without pleural effusion or pneumothorax. Cardiac silhouette remains enlarged. Normal pulmonary vasculature. No free air below the diaphragm or focal extrathoracic soft tissue abnormality. No fracture. 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 Procedure Note Jyothi Simon MD - 06/13/2024 EXAMINATION: XR CHEST ONE VIEW CLINICAL HISTORY: IABP insertion and positioning TECHNIQUE: AP portable chest radiograph, 30 degrees upright (2 images) COMPARISON: Chest radiographs June 03 and June 07, 2024 CT chest June 03, 2024 FINDINGS: -Inferiorly inserted intra-aortic balloon pump tip at the aortic arch. -Unchanged 3-lead left upper chest pulse generator. No lead fracture orchange in position. Lungs are clear without pleural effusion or pneumothorax. Cardiac silhouette remains enlarged. Normal pulmonary vasculature. No free air below the diaphragm or focal extrathoracic soft tissueabnormality. No fracture. Mild spine degeneration and bilateral acromioclavicularjoint osteoarthropathy. IMPRESSION 1. Infrarenal aortic balloon pump tip at the aortic arch. 2. Stable cardiomegaly. No acute cardiopulmonary abnormality. Thank you for letting us participate in the care of this patient. If youare a health care provider and have any questions regarding this report,please contact the number below. For patients who have questions please contactthe health healthcare corporate account director that requested your imaging first. Haja Byrnes MD IMG DX ORDERABLES * CARDIAC CATHETERIZATION (06/13/2024 9:02 AM EST) Anatomical Region Laterality Modality Other Narrative 06/15/2024 9:07 AM EST ?[facility] ? Cardiac Catheterization/Intervention Report ? Patient Name: Tyson, George L. ? Procedure Date: 06/13/2024 ? A #: [id number] ? Primary Physician: Nhua Shen I ? Case #: [id number] ? File Name: [id number] ? Catheterization Order Number: [id number] ? [facility] ? Final Report [place], [place] ? Patient Name: ? George L. Tyson ? ID#: ?[id number] ? : ?1955 ? Procedure Date: ? June 13, 2024 ?Case #: ? [id number] ? Room: ? 6 ? Case Physician: ? Nuha Shen M.D. ? Start: ?09:20 ?Fellow: ? Alice Tellez. ? Admission: ??06/02/2024 ? Referring Physician: ??Alice [...] ?was designated as ASA Class IV. The [facility] clinical frailty scale is 5: ?Mildly Frail. ? Diagnostic Tests: ?Prior Coronary Angiography: ? Prior coronary angiography was performed on 06/02/2024 and showed ? obstructive CAD. LV ejection fraction within 6 months is 25%. ?Electrocardiography: ? EKG was assessed by ECG. EKG was Abnormal. EKG showed other ? abnormality. ?Medications Prior to Procedure: ? Sacubitril and Valsartan, Aspirin, Beta Erik and Statin. ? Indications for Diagnostic Cath: ?The priority of the diagnostic procedure was Urgent. The indication for ?the seed laboratory technician visit is ACS greater than 24 hrs [...] angiography, vascular ?ultrasound and IABP insertion in seed laboratory technician. ? Nuha Shen M.D. ? Electronically Signed by: Nuha Shen M.D. ? Report Finalized: 06/15/2024 ??08:59 ? Procedure Note Nuha Shen MD - 06/15/2024 [facility] Cardiac Catheterization/Intervention Report Patient Name: George Mehta Procedure Date: 06/13/2024 A #: [id number] Primary Physician: Nuha Shen I Case #: [id number] File Name: [id number] Catheterization Order Number: [id number] [facility] FinalReport [place], [place] Patient Name: George Mehta ID#:[id number] :1955 Procedure Date: June 13, 2024 Case [...] was designated as ASA Class IV. The [facility] clinical frailty scale is5: Mildly Frail. 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 LV ejection fraction within 6 months is 25%. Electrocardiography: EKG was assessed by ECG. EKG was Abnormal. EKG showed other abnormality. Medications Prior to Procedure: Sacubitril and Valsartan, Aspirin, Beta Erik and Statin. Indications for Diagnostic Cath: The priority of the diagnostic procedure was Urgent. The indicationfor the seed laboratory technician visit is ACS greater than 24 hrs [...] site angiography,vascular ultrasound and IABP insertion in seed laboratory technician. Nuha Shen M.D. Electronically Signed by: Nuha Shen M.D. Report Finalized: 06/15/2024 08:59 Nuha Rojo MD CARDIAC CATH ORDERA BLES * Potassium (06/13/2024 7:48 AM EST) Potassium 4.5 3.5 - 5.0 mMol/L 06/13/2024 8:28 AM EST [facility] Blood VENOUS BLOOD SPECIMEN / Unknown Venipuncture / Unknown 06/13/2024 7:48 AM EST 06/13/2024 7:55 AM EST Shahnaz Scanlon MD CHEMISTRY ORDERABLES [facility] [place] [address] * POC, GLUCOSE (06/13/2024 7:41 AM EST) Glucometer, POC 126 65 - 199 mg/dL 06/13/2024 7:41 AM EST [facility] Comment:Supplemental ranges: <140 mg/dL before meals <180 mg/dL all other times of the day. Blood CAPILLARY BLOOD / Unknown 06/13/2024 7:41 AM EST 06/13/2024 7:41 AM EST Ethel Carrillo MD POINT OF CARE TEST O NIKA Performing Organization Address [facility] Co de Phone Number [facility] [place] [address] * POC, GLUCOSE (06/13/2024 3:25 AM EST) Glucometer, POC 99 65 - 199 mg/dL 06/13/2024 3:25 AM EST [facility] Comment:Supplemental ranges: <140 mg/dL before meals <180 mg/dL all other times of the day. Blood CAPILLARY BLOOD / Unknown 06/13/2024 3:25 AM EST 06/13/2024 3:25 AM EST Ethel Carrillo MD POINT OF CARE TEST Abimael MAHER Performing Organization Address [facility] de Phone Number [facility] [place] [address] * Heparin (unfractionated) Level (06/13/2024 2:26 AM EST) [facility] UF Heparin 0.60 IU/mL 06/13/2024 3:32 AM EST [facility] Comment: Heparin (anti-Xa) levels should [...] indications in cardiac surgery): ? 0.1-0.3 IU/mL Specimen drawn more than one hour prior to testing. Results may not be reliable for heparin monitoring. Result may be falsely low. Blood VENOUS BLOOD SPECIMEN / Unknown Venipuncture / Unknown 06/13/2024 2:26 AM EST 06/13/2024 2:32 AM EST Shahnaz Scanlon MD HEMATOLOGY ORDERABLE S [facility] [place] [address] * (ABNORMAL) CBC (with Diff) (06/13/2024 2:26 AM EST) White Blood Cell 9.98(H) 4.00 - 9.50 x10(3)/mc L 06/13/2024 2:[address] [facility] Red Blood Cell 5.11 4.58 - 5.54 x10(6)/mc L 06/13/2024 2:[address] [facility] Hemoglobin 15.3 13.7 - 16.5 g/dL 06/13/2024 2:[address] [facility] Hematocrit 47.1 40.5 - 48.5 % 06/13/2024 2:[address] [facility] Mean Cell Volume 92.2 82.9 - 93.1 fL 06/13/2024 2:[address] [facility] Mean Cell Hemoglobin 29.9 27.5 - 32.1 pg 06/13/2024 2:[address] [facility] Mean Cell Hemoglobin Concentration 32.5 32.0 - 35.7 g/dL 06/13/2024 2:[address] [facility] Platelet 194 145 - 357 x10(3)/mc L 06/13/2024 2:[address] [facility] Mean Platelet Volume 9.7 7.6 - 12.9 fL 06/13/2024 2:[address] [facility] RDW Standard Deviation 47.5(H) 36.0 - 45.0 fL 06/13/2024 2:[address] [facility] RDW coefficient of variation 13.8 11.4 - 13.8 % 06/13/2024 2:[address] [facility] NRBC% auto 0.0 % 06/13/2024 2:[address] [facility] NRBC Absolute <0.01 <0.01 x10(3)/mc L 06/13/2024 2:[address] [facility] Neutrophil % 48.8 % 06/13/2024 2:[address] [facility] Neutrophil Absolute (ANC) - Automated 4.87 1.70 - 6.10 x10(3)/mc L 06/13/2024 2:[address] [facility] Lymph % 35.3 % 06/13/2024 2:[address] [facility] Lymph Absolute 3.52(H) 0.90 - 3.20 x10(3)/mc L 06/13/2024 2:[address] [facility] Monocyte % 10.1 % 06/13/2024 2:[address] [facility] Monocyte Absolute 1.01(H) 0.30 - 0.90 x10(3)/mc L 06/13/2024 2:[address] [facility] Eos % 4.4 % 06/13/2024 2:[address] [facility] Eos Absolute 0.44(H) 0.00 - 0.40 x10(3)/mc L 06/13/2024 2:[address] [facility] Basophil % 0.9 % 06/13/2024 2:[address] [facility] Baso Absolute 0.09 0.00 - 0.10 x10(3)/mc L 06/13/2024 2:[address] [facility] Immature Gran % 0.5 % 2:[address] [facility] Immature Gran Absolute 0.05(H) 0.00 - 0.04 x10(3)/mc L 06/13/2024 2:41 AM EST [facility] Blood VENOUS BLOOD SPECIMEN / Unknown Venipuncture / Unknown 06/13/2024 2:26 AM EST 06/13/2024 2:32 AM EST Shahnaz Scanlon MD HEMATOLOGY ORDERABLE S Performing Organization Address City/[facility]/ZIP Co de Phone Number [facility] [place] [address] * Magnesium (06/13/2024 2:26 AM EST) Magnesium 0.78 0.69 - 1.07 mMol/L 06/13/2024 2:[address] [facility] Blood VENOUS BLOOD SPECIMEN / Unknown Venipuncture / Unknown 06/13/2024 2:26 AM EST 06/13/2024 2:31 AM EST Shahnaz Scanlon MD CHEMISTRY ORDERABLES Performing Organization Address City/[facility]/ZIP Co de Phone Number [facility] [place] [address] * (ABNORMAL) Basic Metabolic Panel (06/13/2024 2:26 AM EST) Glucose 121 65 - 199 mg/dL 06/13/2024 2:[address] [facility] Comment:Glucose Concentratio n >=200 mg/dL plus symptoms is consistent with Diabetes Mellitus. Blood Urea Nitrogen 21(H) 10 - 20 mg/dL 06/13/2024 2:58 AM EST [facility] Creatinine 1.07 0.80 - 1.50 mg/dL 06/13/2024 2:[address] [facility] Sodium 136 135 - 145 mMol/L 06/13/2024 2:[address] [facility] Potassium 3.9 3.5 - 5.0 mMol/L 06/13/2024 2:[address] [facility] Chloride 99 98 - 107 mMol/L 06/13/2024 2:[address] [facility] Carbon Dioxide 27 22 - 31 mMol/L 06/13/2024 2:58 AM EST [facility] Anion Gap 10 5 - 15 mMol/L 06/13/2024 2:[address] [facility] Calcium 9.7 8.5 - 10.5 mg/dL 06/13/2024 2:58 AM EST [facility] Est Glomerular Filtration Rate - Male 76 mL/min/1. 73 m?? 06/13/2024 2:[address] [facility] Comment: This patient's estimated GFR [...] SPECIMEN / Unknown Venipuncture / Unknown 06/13/2024 2:26 AM EST 06/13/2024 2:31 AM EST Shahnaz Scanlon MD CHEMISTRY ORDERABLES [facility] [place] [address] * POC, GLUCOSE (06/12/2024 11:53 PM EST) [facility] Signature Glucometer, POC 141 65 - 199 mg/dL 06/12/2024 11:54 PM EST [facility] Comment:Supplemental ranges: <140 mg/dL before meals <180 mg/dL all other times of the day. Blood CAPILLARY BLOOD / Unknown 06/12/2024 11:53 PM EST 06/12/2024 11:54 PM EST Ethel Carrillo MD POINT OF CARE TEST O RDERABLES [facility] [place] [address] * POC, GLUCOSE (06/12/2024 7:32 PM EST) Glucometer, POC 158 65 - 199 mg/dL 06/12/2024 7:32 PM EST [facility] Comment:Supplemental ranges: <140 mg/dL before meals <180 mg/dL all other times of the day. Blood CAPILLARY BLOOD / Unknown 06/12/2024 7:32 PM EST 06/12/2024 7:32 PM EST Ethel Carrillo MD POINT OF CARE TEST O NIKA Performing Organization Address [facility] de Phone Number [facility] [place] [address] * POC, GLUCOSE (06/12/2024 3:41 PM EST) Glucometer, POC 113 65 - 199 mg/dL 06/12/2024 3:41 PM EST [facility] Comment:Supplemental ranges: <140 mg/dL before meals <180 mg/dL all other times of the day. Blood CAPILLARY BLOOD / Unknown 06/12/2024 3:41 PM EST 06/12/2024 3:41 PM EST Ethel Carrillo MD POINT OF CARE TEST O NIKA Performing Organization Address [facility] Co de Phone Number [facility] [place] [address] * Potassium (06/12/2024 2:19 PM EST) Potassium 4.5 3.5 - 5.0 mMol/L 06/12/2024 2:45 PM EST [facility] Blood VENOUS BLOOD SPECIMEN / Unknown Venipuncture / Unknown 06/12/2024 2:19 PM EST 06/12/2024 2:23 PM EST Shahnaz Scanlon MD CHEMISTRY ORDERABLES Performing Organization Address [facility] Co de Phone Number [facility] [place] [address] * (ABNORMAL) POC, GLUCOSE (06/12/2024 11:21 AM EST) Glucometer, POC 207(H) 65 - 199 mg/dL 06/12/2024 11:21 AM EST [facility] Comment:Supplemental ranges: <140 mg/dL before meals <180 mg/dL all other times of the day. Blood CAPILLARY BLOOD / Unknown 06/12/2024 11:21 AM EST 06/12/2024 11:22 AM EST Ethel Carrillo MD POINT OF CARE TEST O NIKA Performing Organization Address [facility] Co de Phone Number [facility] [place] [address] * POC, GLUCOSE (06/12/2024 8:00 AM EST) Glucometer, POC 169 65 - 199 mg/dL 06/12/2024 8:01 AM EST [facility] Comment:Supplemental ranges: <140 mg/dL before meals <180 mg/dL all other times of the day. Blood CAPILLARY BLOOD / Unknown 06/12/2024 8:00 AM EST 06/12/2024 8:01 AM EST Ethel Carrillo MD POINT OF CARE TEST O NIKA Performing Organization Address [facility] Co de Phone Number [facility] [place] [address] * POC, GLUCOSE (06/12/2024 4:25 AM EST) Glucometer, POC 132 65 - 199 mg/dL 06/12/2024 4:26 AM EST [facility] Comment:Supplemental ranges: <140 mg/dL before meals <180 mg/dL all other times of the day. Blood CAPILLARY BLOOD / Unknown 06/12/2024 4:25 AM EST 06/12/2024 4:26 AM EST Ethel Carrillo MD POINT OF CARE TEST O RDERABLES Performing Organization Address [facility] Co de Phone Number [facility] [place] [address] * Heparin (unfractionated) Level (06/12/2024 3:03 AM EST) UF Heparin 0.55 IU/mL 06/12/2024 3:44 AM EST [facility] Comment: Heparin (anti-Xa) levels should [...] BLOOD SPECIMEN / Unknown Venipuncture / Unknown 06/12/2024 3:03 AM EST 06/12/2024 3:30 AM EST Shahnaz Scanlon MD HEMATOLOGY ORDERABLE S Performing Organization Address City/[facility]/ZIP Co de Phone Number [facility] [place] [address] * (ABNORMAL) CBC (with Diff) (06/12/2024 3:03 AM EST) White Blood Cell 9.69(H) 4.00 - 9.50 x10(3)/mc L 06/12/2024 3:36 AM EST [facility] Red Blood Cell 5.05 4.58 - 5.54 x10(6)/mc L 06/12/2024 3:[address] [facility] Hemoglobin 15.2 13.7 - 16.5 g/dL 06/12/2024 3:[address] [facility] Hematocrit 46.6 40.5 - 48.5 % 06/12/2024 3:[address] [facility] Mean Cell Volume 92.3 82.9 - 93.1 fL 06/12/2024 3:[address] [facility] Mean Cell Hemoglobin 30.1 27.5 - 32.1 pg 06/12/2024 3:[address] [facility] Mean Cell Hemoglobin Concentration 32.6 32.0 - 35.7 g/dL 06/12/2024 3:[address] [facility] Platelet 194 145 - 357 x10(3)/mc L 06/12/2024 3:[address] [facility] Mean Platelet Volume 10.1 7.6 - 12.9 fL 06/12/2024 3:[address] [facility] RDW Standard Deviation 47.7(H) 36.0 - 45.0 fL 06/12/2024 3:[address] [facility] RDW coefficient of variation 14.0(H) 11.4 - 13.8 % 06/12/2024 3:[address] [facility] NRBC% auto 0.0 % 06/12/2024 3:[address] [facility] NRBC Absolute <0.01 <0.01 x10(3)/mc L 06/12/2024 3:[address] [facility] Neutrophil % 49.9 % 06/12/2024 3:[address] [facility] Neutrophil Absolute (ANC) - Automated 4.82 1.70 - 6.10 x10(3)/mc L 06/12/2024 3:[address] [facility] Lymph % 33.5 % 06/12/2024 3:[address] [facility] Lymph Absolute 3.25(H) 0.90 - 3.20 x10(3)/mc L 06/12/2024 3:[address] [facility] Monocyte % 11.1 % 06/12/2024 3:[address] [facility] Monocyte Absolute 1.08(H) 0.30 - 0.90 x10(3)/mc L 06/12/2024 3:[address] [facility] Eos % 4.1 % 06/12/2024 3:[address] [facility] Eos Absolute 0.40 0.00 - 0.40 x10(3)/mc L 06/12/2024 3:[address] [facility] Basophil % 0.8 % 06/12/2024 3:[address] [facility] Baso Absolute 0.08 0.00 - 0.10 x10(3)/mc L 06/12/2024 3:[address] [facility] Immature Gran % 0.6 % 3:[address] [facility] Immature Gran Absolute 0.06(H) 0.00 - 0.04 x10(3)/mc L 06/12/2024 3:[address] [facility] Blood VENOUS BLOOD SPECIMEN / Unknown Venipuncture / Unknown 06/12/2024 3:03 AM EST 06/12/2024 3:30 AM EST Shahnaz Scanlon MD HEMATOLOGY ORDERABLE S [facility] [place] [address] * Magnesium (06/12/2024 3:03 AM EST) Magnesium 0.79 0.69 - 1.07 mMol/L 06/12/2024 4:[address] [facility] Blood VENOUS BLOOD SPECIMEN / Unknown Venipuncture / Unknown 06/12/2024 3:03 AM EST 06/12/2024 3:30 AM EST Shahnaz Scanlon MD CHEMISTRY ORDERABLES [facility] [place] [address] * (ABNORMAL) Basic Metabolic Panel (06/12/2024 3:03 AM EST) Glucose 132 65 - 199 mg/dL 06/12/2024 4:[address] [facility] Comment:Glucose Concentratio n >=200 mg/dL plus symptoms is consistent with Diabetes Mellitus. Blood Urea Nitrogen 23(H) 10 - 20 mg/dL 06/12/2024 4:[address] [facility] Creatinine 1.15 0.80 - 1.50 mg/dL 06/12/2024 4:[address] [facility] Sodium 138 135 - 145 mMol/L 06/12/2024 4:[address] [facility] Potassium 3.8 3.5 - 5.0 mMol/L 06/12/2024 4:[address] [facility] Chloride 98 98 - 107 mMol/L 06/12/2024 4:[address] [facility] Carbon Dioxide 29 22 - 31 mMol/L 06/12/2024 4:[address] [facility] Anion Gap 11 5 - 15 mMol/L 06/12/2024 4:[address] [facility] Calcium 9.5 8.5 - 10.5 mg/dL 06/12/2024 4:[address] [facility] Est Glomerular Filtration Rate - Male 70 mL/min/1. 73 m?? 06/12/2024 4:[address] [facility] Comment: This patient's estimated GFR [...] BLOOD SPECIMEN / Unknown Venipuncture / Unknown 06/12/2024 3:03 AM EST 06/12/2024 3:30 AM EST Shahnaz Scanlon MD CHEMISTRY ORDERABLES Performing Organization Address [facility]/ZIP Co de Phone Number [facility] [place] [address] * POC, GLUCOSE (06/11/2024 11:56 PM EST) Glucometer, POC 135 65 - 199 mg/dL 06/11/2024 11:56 PM EST [facility] Comment:Supplemental ranges: <140 mg/dL before meals <180 mg/dL all other times of the day. Blood CAPILLARY BLOOD / Unknown 06/11/2024 11:56 PM EST 06/11/2024 11:56 PM EST Ethel Carrillo MD POINT OF CARE TEST O NIKA Performing Organization Address [facility] de Phone Number [facility] [place] [address] * (ABNORMAL) POC, GLUCOSE (06/11/2024 8:25 PM EST) Glucometer, POC 210(H) 65 - 199 mg/dL 06/11/2024 8:26 PM EST [facility] Comment:Supplemental ranges: <140 mg/dL before meals <180 mg/dL all other times of the day. Blood CAPILLARY BLOOD / Unknown 06/11/2024 8:25 PM EST 06/11/2024 8:26 PM EST Ethel Carrillo MD POINT OF CARE TEST O RDBECKIE Performing Organization Address City/[facility]/ZIP Co de Phone Number [facility] [place] [address] * POC, GLUCOSE (06/11/2024 4:24 PM EST) Glucometer, POC 81 65 - 199 mg/dL 06/11/2024 4:24 PM EST [facility] Comment:Supplemental ranges: <140 mg/dL before meals <180 mg/dL all other times of the day. Blood CAPILLARY BLOOD / Unknown 06/11/2024 4:24 PM EST 06/11/2024 4:25 PM EST Ethel Carrillo MD POINT OF CARE TEST O RDERAPIETER Performing Organization Address [facility] Co de Phone Number [facility] [place] [address] * (ABNORMAL) POC, GLUCOSE (06/11/2024 11:08 AM EST) Glucometer, POC 233(H) 65 - 199 mg/dL 06/11/2024 11:08 AM EST [facility] Comment:Supplemental ranges: <140 mg/dL before meals <180 mg/dL all other times of the day. Blood CAPILLARY BLOOD / Unknown 06/11/2024 11:08 AM EST 06/11/2024 11:08 AM EST Ethel Carrillo MD POINT OF CARE TEST O NIKA Performing Organization Address [facility] Co de Phone Number [facility] [place] [address] * POC, GLUCOSE (06/11/2024 7:48 AM EST) Glucometer, POC 184 65 - 199 mg/dL 06/11/2024 7:49 AM EST [facility] Comment:Supplemental ranges: <140 mg/dL before meals <180 mg/dL all other times of the day. Blood CAPILLARY BLOOD / Unknown 06/11/2024 7:48 AM EST 06/11/2024 7:49 AM EST Melida Valdes MD POINT OF CARE TEST O RDERABLES [facility] [place] [address] * Heparin (unfractionated) Level (06/11/2024 5:31 AM EST) UF Heparin 0.55 IU/mL 06/11/2024 6:10 AM EST [facility] Comment: Heparin (anti-Xa) levels should [...] BLOOD SPECIMEN / Unknown Venipuncture / Unknown 06/11/2024 5:31 AM EST 06/11/2024 5:40 AM EST Shahnaz Scanlon MD HEMATOLOGY ORDERABLE S [facility] [place] [address] * POC, GLUCOSE (06/11/2024 3:57 AM EST) [facility] Glucometer, POC 132 65 - 199 mg/dL 06/11/2024 3:58 AM EST [facility] Comment:Supplemental ranges: <140 mg/dL before meals <180 mg/dL all other times of the day. Blood CAPILLARY BLOOD / Unknown 06/11/2024 3:57 AM EST 06/11/2024 3:58 AM EST Melida Valdes MD POINT OF CARE TEST O RDERABLES [facility] [place] [address] * (ABNORMAL) CBC (with Diff) (06/11/2024 2:13 AM EST) White Blood Cell 9.91(H) 4.00 - 9.50 x10(3)/mc L 06/11/2024 2:[address] [facility] Red Blood Cell 5.13 4.58 - 5.54 x10(6)/mc L 06/11/2024 2:[address] [facility] Hemoglobin 15.3 13.7 - 16.5 g/dL 06/11/2024 2:[address] [facility] Hematocrit 47.5 40.5 - 48.5 % 06/11/2024 2:[address] [facility] Mean Cell Volume 92.6 82.9 - 93.1 fL 06/11/2024 2:[address] [facility] Mean Cell Hemoglobin 29.8 27.5 - 32.1 pg 06/11/2024 2:[address] [facility] Mean Cell Hemoglobin Concentration 32.2 32.0 - 35.7 g/dL 06/11/2024 2:[address] [facility] Platelet 184 145 - 357 x10(3)/mc L 06/11/2024 2:[address] [facility] Mean Platelet Volume 9.7 7.6 - 12.9 fL 06/11/2024 2:[address] [facility] RDW Standard Deviation 48.0(H) 36.0 - 45.0 fL 06/11/2024 2:[address] [facility] RDW coefficient of variation 14.0(H) 11.4 - 13.8 % 06/11/2024 2:[address] [facility] NRBC% auto 0.0 % 06/11/2024 2:[address] [facility] NRBC Absolute <0.01 <0.01 x10(3)/mc L 06/11/2024 2:[address] [facility] Neutrophil % 50.3 % 06/11/2024 2:[address] [facility] Neutrophil Absolute (ANC) - Automated 4.98 1.70 - 6.10 x10(3)/mc L 06/11/2024 2:[address] [facility] Lymph % 33.5 % 06/11/2024 2:[address] [facility] Lymph Absolute 3.32(H) 0.90 - 3.20 x10(3)/mc L 06/11/2024 2:[address] [facility] Monocyte % 10.9 % 06/11/2024 2:[address] [facility] Monocyte Absolute 1.08(H) 0.30 - 0.90 x10(3)/mc L 06/11/2024 2:[address] [facility] Eos % 4.1 % 06/11/2024 2:[address] [facility] Eos Absolute 0.41(H) 0.00 - 0.40 x10(3)/mc L 06/11/2024 2:[address] [facility] Basophil % 0.7 % 06/11/2024 2:[address] [facility] Baso Absolute 0.07 0.00 - 0.10 x10(3)/mc L 06/11/2024 2:[address] [facility] Immature Gran % 0.5 % 2:[address] [facility] Immature Gran Absolute 0.05(H) 0.00 - 0.04 x10(3)/mc L 06/11/2024 2:[address] [facility] Blood VENOUS BLOOD SPECIMEN / Unknown Venipuncture / Unknown 06/11/2024 2:13 AM EST 06/11/2024 2:19 AM EST Shahnaz Scanlon MD HEMATOLOGY ORDERABLE S [facility] [place] [address] * Magnesium (06/11/2024 2:13 AM EST) Pathologist [facility] Magnesium 0.83 0.69 - 1.07 mMol/L 06/11/2024 2:[address] [facility] Blood VENOUS BLOOD SPECIMEN / Unknown Venipuncture / Unknown 06/11/2024 2:13 AM EST 06/11/2024 2:19 AM EST Shahnaz Scanlon MD CHEMISTRY ORDERABLES Performing Organization Address City/[facility]/ZIP Co de Phone Number [facility] [place] [address] * (ABNORMAL) Basic Metabolic Panel (06/11/2024 2:13 AM EST) [facility] Glucose 148 65 - 199 mg/dL 06/11/2024 2:[address] [facility] Comment:Glucose Concentratio n >=200 mg/dL plus symptoms is consistent with Diabetes Mellitus. Blood Urea Nitrogen 24(H) 10 - 20 mg/dL 06/11/2024 2:[address] [facility] Creatinine 1.06 0.80 - 1.50 mg/dL 06/11/2024 2:[address] [facility] Sodium 134(L) 135 - 145 mMol/L 06/11/2024 2:[address] [facility] Potassium 4.1 3.5 - 5.0 mMol/L 06/11/2024 2:[address] [facility] Chloride 96(L) 98 - 107 mMol/L 06/11/2024 2:[address] [facility] Carbon Dioxide 28 22 - 31 mMol/L 06/11/2024 2:[address] [facility] Anion Gap 10 5 - 15 mMol/L 06/11/2024 2:[address] [facility] Calcium 9.4 8.5 - 10.5 mg/dL 06/11/2024 2:51 AM EST [facility] Est Glomerular Filtration Rate - Male 77 mL/min/1. 73 m?? 06/11/2024 2:51 AM EST [facility] Comment: This patient's estimated GFR [...] BLOOD SPECIMEN / Unknown Venipuncture / Unknown 06/11/2024 2:13 AM EST 06/11/2024 2:19 AM EST Shahnaz Scanlon MD CHEMISTRY ORDERABLES Performing Organization Address City/[facility]/ZIP Co de Phone Number [facility] [place] [address] * POC, GLUCOSE (06/11/2024 12:50 AM EST) Glucometer, POC 144 65 - 199 mg/dL 06/11/2024 12:51 AM EST [facility] Comment:Supplemental ranges: <140 mg/dL before meals <180 mg/dL all other times of the day. Blood CAPILLARY BLOOD / Unknown 06/11/2024 12:50 AM EST 06/11/2024 12:51 AM EST Melida Valdes MD POINT OF CARE TEST O RDERABLES Performing Organization Address City/[facility]/ZIP Co de Phone Number [facility] [place] [address] * (ABNORMAL) POC, GLUCOSE (06/10/2024 7:22 PM EST) Glucometer, POC 236(H) 65 - 199 mg/dL 06/10/2024 7:[address] [facility] Comment:Supplemental ranges: <140 mg/dL before meals <180 mg/dL all other times of the day. Blood CAPILLARY BLOOD / Unknown 06/10/2024 7:22 PM EST 06/10/2024 7:22 PM EST Melida Valdes MD POINT OF CARE TEST O NIKA [facility] [place] [address] * (ABNORMAL) Blood Gas, Venous (06/10/2024 5:42 PM EST) pH, Venous 7.34 7.32 - 7.42 06/10/2024 5:[address] [facility] PCO2, Venous 52 38 - 58 mmHg 06/10/2024 5:[address] [facility] PO2, Venous 24 16 - 65 mmHg 06/10/2024 5:[address] [facility] Bicarbonate, Venous 27.4 22 - 31 mmol/L 06/10/2024 5:[address] [facility] Base Excess, Venous 1.7(L) 1.9 - 4.5 mmol/L 06/10/2024 5:[address] [facility] Hemoglobin, Venous 16.8(H) 13.7 - 16.5 g/dL 06/10/2024 5:[address] [facility] Oxyhemoglobin, Venous 39.0 % 06/10/2024 5:[address] [facility] Carboxyhemoglobin , Venous 0.3 % 06/10/2024 5:[address] [facility] Comment: Nonsmokers: 0.5-1.5% COHB ?? Smokers: Variable ??but usually less than 10% ?? Toxic: 20-30% COHB ?? Lethal: Greater than 60% COHB Methemoglobin, Venous 0.5 <=1.5 % 06/10/2024 5:[address] [facility] Sodium, Venous 137 135 - 145 mmol/L 06/10/2024 5:[address] [facility] Chloride, Venous 96(L) 98 - 107 mmol/L 06/10/2024 5:[address] [facility] Potassium, Venous 4.6 3.5 - 5.0 mmol/L 06/10/2024 5:[address] [facility] Ionized Calcium, Venous 1.23 1.15 - 1.33 mmol/L 06/10/2024 5:[address] [facility] Glucose, Venous 114 65 - 199 mg/dL 06/10/2024 5:[address] [facility] Comment:Glucose Concentratio n >=200 mg/dL plus symptoms is consistent with Diabetes Mellitus. Lactate, Venous 1.1 0.5 - 2.2 mmol/L 06/10/2024 5:[address] [facility] Blood Gas Source Venous 06/10/20 5:[address] [facility] Blood VENOUS BLOOD SPECIMEN / Unknown Blood Gas Venous / Unknown 06/10/2024 5:42 PM EST 06/10/2024 5:47 PM EST Melida Valdes MD CHEMISTRY ORDERABLES [facility] [place] [address] * POC, GLUCOSE (06/10/2024 5:35 PM EST) [facility] Signature Glucometer, POC 123 65 - 199 mg/dL 06/10/2024 5:35 PM EST [facility] Comment:Supplemental ranges: <140 mg/dL before meals <180 mg/dL all other times of the day. Blood CAPILLARY BLOOD / Unknown 06/10/2024 5:35 PM EST 06/10/2024 5:35 PM EST Melida Valdes MD POINT OF CARE TEST O RDERABLES [facility] [place] [address] * (ABNORMAL) POC, GLUCOSE (06/10/2024 11:25 AM EST) Glucometer, POC 216(H) 65 - 199 mg/dL 06/10/2024 11:25 AM EST [facility] Comment:Supplemental ranges: <140 mg/dL before meals <180 mg/dL all other times of the day. Blood CAPILLARY BLOOD / Unknown 06/10/2024 11:25 AM EST 06/10/2024 11:25 AM EST Melida Valdes MD POINT OF CARE TEST O NIKA Performing Organization Address City/[facility]/ZIP Co de Phone Number [facility] [place] [address] * (ABNORMAL) POC, GLUCOSE (06/10/2024 7:46 AM EST) Glucometer, POC 206(H) 65 - 199 mg/dL 06/10/2024 7:46 AM EST [facility] Comment:Supplemental ranges: <140 mg/dL before meals <180 mg/dL all other times of the day. Blood CAPILLARY BLOOD / Unknown 06/10/2024 7:46 AM EST 06/10/2024 7:46 AM EST Melida Valdes MD POINT OF CARE TEST O NIKA [facility] [place] [address] * POC, GLUCOSE (06/10/2024 4:23 AM EST) Glucometer, POC 154 65 - 199 mg/dL 06/10/2024 4:24 AM EST [facility] Comment:Supplemental ranges: <140 mg/dL before meals <180 mg/dL all other times of the day. Blood CAPILLARY BLOOD / Unknown 06/10/2024 4:23 AM EST 06/10/2024 4:24 AM EST Melida Valdes MD POINT OF CARE TEST O RDERABLES [facility] [place] [address] * (ABNORMAL) CBC (with Diff) (06/10/2024 1:55 AM EST) White Blood Cell 9.00 4.00 - 9.50 x10(3)/mc L 06/10/2024 2:[address] [facility] Red Blood Cell 5.03 4.58 - 5.54 x10(6)/mc L 06/10/2024 2:[address] [facility] Hemoglobin 14.9 13.7 - 16.5 g/dL 06/10/2024 2:[address] [facility] Hematocrit 46.4 40.5 - 48.5 % 06/10/2024 2:[address] [facility] Mean Cell Volume 92.2 82.9 - 93.1 fL 06/10/2024 2:[address] [facility] Mean Cell Hemoglobin 29.6 27.5 - 32.1 pg 06/10/2024 2:[address] [facility] Mean Cell Hemoglobin Concentration 32.1 32.0 - 35.7 g/dL 06/10/2024 2:[address] [facility] Platelet 191 145 - 357 x10(3)/mc L 06/10/2024 2:[address] [facility] Mean Platelet Volume 9.7 7.6 - 12.9 fL 06/10/2024 2:[address] [facility] RDW Standard Deviation 47.4(H) 36.0 - 45.0 fL 06/10/2024 2:[address] [facility] RDW coefficient of variation 14.1(H) 11.4 - 13.8 % 06/10/2024 2:[address] [facility] NRBC% auto 0.0 % 06/10/2024 2:[address] [facility] NRBC Absolute <0.01 <0.01 x10(3)/mc L 06/10/2024 2:[address] [facility] Neutrophil % 48.7 % 06/10/2024 2:[address] [facility] Neutrophil Absolute (ANC) - Automated 4.39 1.70 - 6.10 x10(3)/mc L 06/10/2024 2:[address] [facility] Lymph % 34.9 % 06/10/2024 2:[address] [facility] Lymph Absolute 3.14 0.90 - 3.20 x10(3)/mc L 06/10/2024 2:[address] [facility] Monocyte % 11.2 % 06/10/2024 2:[address] [facility] Monocyte Absolute 1.01(H) 0.30 - 0.90 x10(3)/mc L 06/10/2024 2:[address] [facility] Eos % 3.6 % 06/10/2024 2:[address] [facility] Eos Absolute 0.32 0.00 - 0.40 x10(3)/mc L 06/10/2024 2:[address] [facility] Basophil % 1.0 % 06/10/2024 2:[address] [facility] Baso Absolute 0.09 0.00 - 0.10 x10(3)/mc L 06/10/2024 2:[address] [facility] Immature Gran % 0.6 % 2:[address] [facility] Immature Gran Absolute 0.05(H) 0.00 - 0.04 x10(3)/mc L 06/10/2024 2:[address] [facility] Blood VENOUS BLOOD SPECIMEN / Unknown Venipuncture / Unknown 06/10/2024 1:55 AM EST 06/10/2024 2:05 AM EST Shahnaz Scanlon MD HEMATOLOGY ORDERABLE S [facility] [place] [address] * Magnesium (06/10/2024 1:55 AM EST) Pathologist [facility] Magnesium 0.83 0.69 - 1.07 mMol/L 06/10/2024 2:[address] [facility] Blood VENOUS BLOOD SPECIMEN / Unknown Venipuncture / Unknown 06/10/2024 1:55 AM EST 06/10/2024 2:05 AM EST Shahnaz Scanlon MD CHEMISTRY ORDERABLES Performing Organization Address City/[facility]/ZIP Co de Phone Number [facility] [place] [address] * (ABNORMAL) Basic Metabolic Panel (06/10/2024 1:55 AM EST) [facility] Glucose 140 65 - 199 mg/dL 06/10/2024 2:[address] [facility] Comment:Glucose Concentratio n >=200 mg/dL plus symptoms is consistent with Diabetes Mellitus. Blood Urea Nitrogen 24(H) 10 - 20 mg/dL 06/10/2024 2:[address] [facility] Creatinine 1.06 0.80 - 1.50 mg/dL 06/10/2024 2:[address] [facility] Sodium 138 135 - 145 mMol/L 06/10/2024 2:[address] [facility] Potassium 4.1 3.5 - 5.0 mMol/L 06/10/2024 2:[address] [facility] Chloride 100 98 - 107 mMol/L 06/10/2024 2:[address] [facility] Carbon Dioxide 25 22 - 31 mMol/L 06/10/2024 2:[address] [facility] Anion Gap 13 5 - 15 mMol/L 06/10/2024 2:[address] [facility] Calcium 9.5 8.5 - 10.5 mg/dL 06/10/2024 2:37 AM EST [facility] Est Glomerular Filtration Rate - Male 77 mL/min/1. 73 m?? 06/10/2024 2:37 AM EST [facility] Comment: This patient's estimated GFR [...] BLOOD SPECIMEN / Unknown Venipuncture / Unknown 06/10/2024 1:55 AM EST 06/10/2024 2:05 AM EST Shahnaz Scanlon MD CHEMISTRY ORDERABLES [facility] [place] [phone] * Heparin (unfractionated) Level (06/10/2024 1:54 AM EST) UF Heparin 0.56 IU/mL 06/10/2024 2:41 AM EST [facility] Comment: Heparin (anti-Xa) levels should [...] BLOOD SPECIMEN / Unknown Venipuncture / Unknown 06/10/2024 1:54 AM EST 06/10/2024 2:05 AM EST Shahnaz Scanlon MD HEMATOLOGY ORDERABLE S Performing Organization Address City/[facility]/ZIP Co de Phone Number [facility] [place] [address] * POC, GLUCOSE (06/10/2024 12:05 AM EST) Glucometer, POC 125 65 - 199 mg/dL 06/10/2024 12:05 AM EST [facility] Comment:Supplemental ranges: <140 mg/dL before meals <180 mg/dL all other times of the day. Blood CAPILLARY BLOOD / Unknown 06/10/2024 12:05 AM EST 06/10/2024 12:05 AM EST Melida Valdes MD POINT OF CARE TEST Abimael MAHER Performing Organization Address [facility] Co de Phone Number [facility] [place] [address] * POC, GLUCOSE (06/09/2024 8:36 PM EST) Glucometer, POC 197 65 - 199 mg/dL 06/09/2024 8:36 PM EST [facility] Comment:Supplemental ranges: <140 mg/dL before meals <180 mg/dL all other times of the day. Blood CAPILLARY BLOOD / Unknown 06/09/2024 8:36 PM EST 06/09/2024 8:36 PM EST Melida Valdes MD POINT OF CARE TEST O NIKA [facility] [place] [address] * POC, GLUCOSE (06/09/2024 5:27 PM EST) Glucometer, POC 174 65 - 199 mg/dL 06/09/2024 5:28 PM EST [facility] Comment:Supplemental ranges: <140 mg/dL before meals <180 mg/dL all other times of the day. Blood CAPILLARY BLOOD / Unknown 06/09/2024 5:27 PM EST 06/09/2024 5:28 PM EST Melida Valdes MD POINT OF CARE TEST O NIKA [facility] [place] [address] * (ABNORMAL) POC, GLUCOSE (06/09/2024 11:52 AM EST) Glucometer, POC 211(H) 65 - 199 mg/dL 06/09/2024 11:52 AM EST [facility] Comment:Supplemental ranges: <140 mg/dL before meals <180 mg/dL all other times of the day. Blood CAPILLARY BLOOD / Unknown 06/09/2024 11:52 AM EST 06/09/2024 11:52 AM EST Melida Valdes MD POINT OF CARE TEST O NIKA Performing Organization Address City/[facility]/ZIP Co de Phone Number [facility] [place] [address] * Potassium (06/09/2024 8:25 AM EST) Pathologist [facility] Potassium 4.6 3.5 - 5.0 mMol/L 06/09/2024 10:09 AM EST [facility] Blood VENOUS BLOOD SPECIMEN / Unknown Venipuncture / Unknown 06/09/2024 8:25 AM EST 06/09/2024 8:42 AM EST Shahnaz Scanlon MD CHEMISTRY ORDERABLES [facility] [place] [address] * (ABNORMAL) POC, GLUCOSE (06/09/2024 8:10 AM EST) Glucometer, POC 209(H) 65 - 199 mg/dL 06/09/2024 8:10 AM EST [facility] Comment:Supplemental ranges: <140 mg/dL before meals <180 mg/dL all other times of the day. Blood CAPILLARY BLOOD / Unknown 06/09/2024 8:10 AM EST 06/09/2024 8:11 AM EST Melida Valdes MD POINT OF CARE TEST O NIKA Performing Organization Address [facility] Co de Phone Number [facility] [place] [address] * POC, GLUCOSE (06/09/2024 4:40 AM EST) Glucometer, POC 131 65 - 199 mg/dL 06/09/2024 4:40 AM EST [facility] Comment:Supplemental ranges: <140 mg/dL before meals <180 mg/dL all other times of the day. Blood CAPILLARY BLOOD / Unknown 06/09/2024 4:40 AM EST 06/09/2024 4:41 AM EST Melida Valdes MD POINT OF CARE TEST Abimael MAHER Performing Organization Address [facility] Co de Phone Number [facility] [place] [address] * Heparin (unfractionated) Level (06/09/2024 2:12 AM EST) UF Heparin 0.55 IU/mL 06/09/2024 2:33 AM EST [facility] Comment: Heparin (anti-Xa) levels should [...] BLOOD SPECIMEN / Unknown Venipuncture / Unknown 06/09/2024 2:12 AM EST 06/09/2024 2:21 AM EST Shahnaz Scanlon MD HEMATOLOGY ORDERABLE S [facility] [place] [address] * (ABNORMAL) CBC (with Diff) (06/09/2024 2:12 AM EST) White Blood Cell 9.80(H) 4.00 - 9.50 x10(3)/mc L 06/09/2024 2:[address] [facility] Red Blood Cell 5.18 4.58 - 5.54 x10(6)/mc L 06/09/2024 2:[address] [facility] Hemoglobin 15.5 13.7 - 16.5 g/dL 06/09/2024 2:[address] [facility] Hematocrit 47.4 40.5 - 48.5 % 06/09/2024 2:[address] [facility] Mean Cell Volume 91.5 82.9 - 93.1 fL 06/09/2024 2:[address] [facility] Mean Cell Hemoglobin 29.9 27.5 - 32.1 pg 06/09/2024 2:[address] [facility] Mean Cell Hemoglobin Concentration 32.7 32.0 - 35.7 g/dL 06/09/2024 2:[address] [facility] Platelet 205 145 - 357 x10(3)/mc L 06/09/2024 2:[address] [facility] Mean Platelet Volume 9.7 7.6 - 12.9 fL 06/09/2024 2:[address] [facility] RDW Standard Deviation 47.7(H) 36.0 - 45.0 fL 06/09/2024 2:[address] [facility] RDW coefficient of variation 14.1(H) 11.4 - 13.8 % 06/09/2024 2:[address] [facility] NRBC% auto 0.0 % 06/09/2024 2:[address] [facility] NRBC Absolute <0.01 <0.01 x10(3)/mc L 06/09/2024 2:[address] [facility] Neutrophil % 53.0 % 06/09/2024 2:[address] [facility] Neutrophil Absolute (ANC) - Automated 5.19 1.70 - 6.10 x10(3)/mc L 06/09/2024 2:[address] [facility] Lymph % 31.6 % 06/09/2024 2:[address] [facility] Lymph Absolute 3.10 0.90 - 3.20 x10(3)/mc L 06/09/2024 2:[address] [facility] Monocyte % 11.0 % 06/09/2024 2:[address] [facility] Monocyte Absolute 1.08(H) 0.30 - 0.90 x10(3)/mc L 06/09/2024 2:[address] [facility] Eos % 2.9 % 06/09/2024 2:[address] [facility] Eos Absolute 0.28 0.00 - 0.40 x10(3)/mc L 06/09/2024 2:[address] [facility] Basophil % 0.9 % 06/09/2024 2:[address] [facility] Baso Absolute 0.09 0.00 - 0.10 x10(3)/mc L 06/09/2024 2:[address] [facility] Immature Gran % 0.6 % 2:44 AM EST [facility] Immature Gran Absolute 0.06(H) 0.00 - 0.04 x10(3)/mc L 06/09/2024 2:[address] [facility] Blood VENOUS BLOOD SPECIMEN / Unknown Venipuncture / Unknown 06/09/2024 2:12 AM EST 06/09/2024 2:21 AM EST Shahnaz Scanlon MD HEMATOLOGY ORDERABLE S Performing Organization Address [facility] Co de Phone Number [facility] [place] [address] * Magnesium (06/09/2024 2:12 AM EST) Magnesium 0.83 0.69 - 1.07 mMol/L 06/09/2024 2:[address] [facility] Blood VENOUS BLOOD SPECIMEN / Unknown Venipuncture / Unknown 06/09/2024 2:12 AM EST 06/09/2024 2:22 AM EST Shahnaz Scanlon MD CHEMISTRY ORDERABLES Performing Organization Address [facility] Co de Phone Number [facility] [place] [address] * (ABNORMAL) Basic Metabolic Panel (06/09/2024 2:12 AM EST) Glucose 147 65 - 199 mg/dL 06/09/2024 2:[address] [facility] Comment:Glucose Concentratio n >=200 mg/dL plus symptoms is consistent with Diabetes Mellitus. Blood Urea Nitrogen 24(H) 10 - 20 mg/dL 06/09/2024 2:[address] [facility] Creatinine 1.11 0.80 - 1.50 mg/dL 06/09/2024 2:[address] [facility] Sodium 136 135 - 145 mMol/L 06/09/2024 2:[address] [facility] Potassium 3.9 3.5 - 5.0 mMol/L 06/09/2024 2:52 AM EST [facility] Chloride 98 98 - 107 mMol/L 06/09/2024 2:[address] [facility] Carbon Dioxide 27 22 - 31 mMol/L 06/09/2024 2:[address] [facility] Anion Gap 11 5 - 15 mMol/L 06/09/2024 2:[address] [facility] Calcium 9.7 8.5 - 10.5 mg/dL 06/09/2024 2:[address] [facility] Est Glomerular Filtration Rate - Male 73 mL/min/1. 73 m?? 06/09/2024 2:[address] [facility] Comment: This patient's estimated GFR [...] BLOOD SPECIMEN / Unknown Venipuncture / Unknown 06/09/2024 2:12 AM EST 06/09/2024 2:22 AM EST Shahnaz Scanlon MD CHEMISTRY ORDERABLES [facility] [place] [address] * POC, GLUCOSE (06/09/2024 12:34 AM EST) Glucometer, POC 186 65 - 199 mg/dL 06/09/2024 12:[address] [facility] Comment:Supplemental ranges: <140 mg/dL before meals <180 mg/dL all other times of the day. Blood CAPILLARY BLOOD / Unknown 06/09/2024 12:34 AM EST 06/09/2024 12:34 AM EST Mleida Valdes MD POINT OF CARE TEST O NIKA Performing Organization Address City/[facility]/ZIP Co de Phone Number [facility] [place] [address] * POC, GLUCOSE (06/08/2024 8:27 PM EST) Glucometer, POC 176 65 - 199 mg/dL 06/08/2024 8:28 PM EST [facility] Comment:Supplemental ranges: <140 mg/dL before meals <180 mg/dL all other times of the day. Blood CAPILLARY BLOOD / Unknown 06/08/2024 8:27 PM EST 06/08/2024 8:28 PM EST Melida Valdes MD POINT OF CARE TEST O NIKA Performing Organization Address [facility] Co de Phone Number [facility] [place] [address] * POC, GLUCOSE (06/08/2024 4:16 PM EST) Glucometer, POC 159 65 - 199 mg/dL 06/08/2024 4:16 PM EST [facility] Comment:Supplemental ranges: <140 mg/dL before meals <180 mg/dL all other times of the day. Blood CAPILLARY BLOOD / Unknown 06/08/2024 4:16 PM EST 06/08/2024 4:16 PM EST Melida Valdes MD POINT OF CARE TEST O NIKA Performing Organization Address City/[facility] Co de Phone Number [facility] [place] [address] * (ABNORMAL) POC, GLUCOSE (06/08/2024 12:35 PM EST) Glucometer, POC 226(H) 65 - 199 mg/dL 06/08/2024 12:35 PM EST [facility] Comment:Supplemental ranges: <140 mg/dL before meals <180 mg/dL all other times of the day. Blood CAPILLARY BLOOD / Unknown 06/08/2024 12:35 PM EST 06/08/2024 12:35 PM EST Melida Valdes MD POINT OF CARE TEST O NIKA Performing Organization Address City/[facility] Co de Phone Number [facility] [place] [address] * POC, GLUCOSE (06/08/2024 8:10 AM EST) Glucometer, POC 190 65 - 199 mg/dL 06/08/2024 8:14 AM EST [facility] Comment:Supplemental ranges: <140 mg/dL before meals <180 mg/dL all other times of the day. Blood CAPILLARY BLOOD / Unknown 06/08/2024 8:10 AM EST 06/08/2024 8:14 AM EST Melida Valdes MD POINT OF CARE TEST O NIKA Performing Organization Address [facility] Co de Phone Number [facility] [place] [address] * POC, GLUCOSE (06/08/2024 4:09 AM EST) Glucometer, POC 151 65 - 199 mg/dL 06/08/2024 4:10 AM EST [facility] Comment:Supplemental ranges: <140 mg/dL before meals <180 mg/dL all other times of the day. Blood CAPILLARY BLOOD / Unknown 06/08/2024 4:09 AM EST 06/08/2024 4:10 AM EST Melida Valdes MD POINT OF CARE TEST O NIKA Performing Organization Address City/[facility] Co de Phone Number [facility] [place] [address] * Heparin (unfractionated) Level (06/08/2024 3:21 AM EST) UF Heparin 0.46 IU/mL 06/08/2024 3:[address] [facility] Comment: Heparin (anti-Xa) levels should [...] BLOOD SPECIMEN / Unknown Venipuncture / Unknown 06/08/2024 3:21 AM EST 06/08/2024 3:27 AM EST Shahnaz Scanlon MD HEMATOLOGY ORDERABLE S Performing Organization Address City/State/[facility] Co de Phone Number [facility] [place] [address] * (ABNORMAL) CBC (with Diff) (06/08/2024 3:21 AM EST) White Blood Cell 9.92(H) 4.00 - 9.50 x10(3)/mc L 06/08/2024 3:[address] [facility] Red Blood Cell 5.09 4.58 - 5.54 x10(6)/mc L 06/08/2024 3:[address] [facility] Hemoglobin 15.1 13.7 - 16.5 g/dL 06/08/2024 3:[address] [facility] Hematocrit 46.7 40.5 - 48.5 % 06/08/2024 3:[address] [facility] Mean Cell Volume 91.7 82.9 - 93.1 fL 06/08/2024 3:[address] [facility] Mean Cell Hemoglobin 29.7 27.5 - 32.1 pg 06/08/2024 3:[address] [facility] Mean Cell Hemoglobin Concentration 32.3 32.0 - 35.7 g/dL 06/08/2024 3:[address] [facility] Platelet 203 145 - 357 x10(3)/mc L 06/08/2024 3:[address] [facility] Mean Platelet Volume 9.4 7.6 - 12.9 fL 06/08/2024 3:[address] [facility] RDW Standard Deviation 46.9(H) 36.0 - 45.0 fL 06/08/2024 3:[address] [facility] RDW coefficient of variation 13.8 11.4 - 13.8 % 06/08/2024 3:[address] [facility] NRBC% auto 0.0 % 06/08/2024 3:[address] [facility] NRBC Absolute <0.01 <0.01 x10(3)/mc L 06/08/2024 3:[address] [facility] Neutrophil % 56.8 % 06/08/2024 3:[address] [facility] Neutrophil Absolute (ANC) - Automated 5.63 1.70 - 6.10 x10(3)/mc L 06/08/2024 3:[address] [facility] Lymph % 27.3 % 06/08/2024 3:[address] [facility] Lymph Absolute 2.71 0.90 - 3.20 x10(3)/mc L 06/08/2024 3:[address] [facility] Monocyte % 11.2 % 06/08/2024 3:[address] [facility] Monocyte Absolute 1.11(H) 0.30 - 0.90 x10(3)/mc L 06/08/2024 3:[address] [facility] Eos % 3.4 % 06/08/2024 3:[address] [facility] Eos Absolute 0.34 0.00 - 0.40 x10(3)/mc L 06/08/2024 3:34 AM EST [facility] Basophil % 0.8 % 06/08/2024 3:[address] [facility] Baso Absolute 0.08 0.00 - 0.10 x10(3)/mc L 06/08/2024 3:[address] [facility] Immature Gran % 0.5 % 3:[address] [facility] Immature Gran Absolute 0.05(H) 0.00 - 0.04 x10(3)/mc L 06/08/2024 3:[address] [facility] Blood VENOUS BLOOD SPECIMEN / Unknown Venipuncture / Unknown 06/08/2024 3:21 AM EST 06/08/2024 3:27 AM EST Shahnaz Scanlon MD HEMATOLOGY ORDERABLE S [facility] [place] [address] * Magnesium (06/08/2024 3:21 AM EST) Magnesium 0.84 0.69 - 1.07 mMol/L 06/08/2024 3:[address] [facility] Blood VENOUS BLOOD SPECIMEN / Unknown Venipuncture / Unknown 06/08/2024 3:21 AM EST 06/08/2024 3:27 AM EST Shahnaz Scanlon MD CHEMISTRY ORDERABLES [facility] [place] [address] * (ABNORMAL) Basic Metabolic Panel (06/08/2024 3:21 AM EST) Glucose 173 65 - 199 mg/dL 06/08/2024 3:59 AM EST [facility] Comment:Glucose Concentratio n >=200 mg/dL plus symptoms is consistent with Diabetes Mellitus. Blood Urea Nitrogen 25(H) 10 - 20 mg/dL 06/08/2024 3:[address] [facility] Creatinine 1.09 0.80 - 1.50 mg/dL 06/08/2024 3:[address] [facility] Sodium 135 135 - 145 mMol/L 06/08/2024 3:[address] [facility] Potassium 4.2 3.5 - 5.0 mMol/L 06/08/2024 3:[address] [facility] Chloride 98 98 - 107 mMol/L 06/08/2024 3:[address] [facility] Carbon Dioxide 25 22 - 31 mMol/L 06/08/2024 3:[address] [facility] Anion Gap 12 5 - 15 mMol/L 06/08/2024 3:[address] [facility] Calcium 9.4 8.5 - 10.5 mg/dL 06/08/2024 3:[address] [facility] Est Glomerular Filtration Rate - Male 74 mL/min/1. 73 m?? 06/08/2024 3:[address] [facility] Comment: This patient's estimated GFR [...] BLOOD SPECIMEN / Unknown Venipuncture / Unknown 06/08/2024 3:21 AM EST 06/08/2024 3:27 AM EST Shahnaz Scanlon MD CHEMISTRY ORDERABLES [facility] [place] [address] * POC, GLUCOSE (06/07/2024 11:57 PM EST) Glucometer, POC 188 65 - 199 mg/dL 06/07/2024 11:57 PM EST [facility] Comment:Supplemental ranges: <140 mg/dL before meals <180 mg/dL all other times of the day. Blood CAPILLARY BLOOD / Unknown 06/07/2024 11:57 PM EST 06/07/2024 11:58 PM EST Melida Valdes MD POINT OF CARE TEST O RDERABLES Performing Organization Address City/[facility]/ZIP Co de Phone Number [facility] [place] [address] * POC, GLUCOSE (06/07/2024 8:05 PM EST) Glucometer, POC 118 65 - 199 mg/dL 06/07/2024 8:06 PM EST [facility] Comment:Supplemental ranges: <140 mg/dL before meals <180 mg/dL all other times of the day. Blood CAPILLARY BLOOD / Unknown 06/07/2024 8:05 PM EST 06/07/2024 8:06 PM EST Melida Valdes MD POINT OF CARE TEST O RDERAPIETER Performing Organization Address City/[facility]/ZIP Co de Phone Number [facility] [place] [address] * Potassium (06/07/2024 5:22 PM EST) Potassium 4.6 3.5 - 5.0 mMol/L 06/07/2024 5:59 PM EST [facility] Blood VENOUS BLOOD SPECIMEN / Unknown Venipuncture / Unknown 06/07/2024 5:22 PM EST 06/07/2024 5:26 PM EST Shahnaz Scanlon MD CHEMISTRY ORDERABLES [facility] [place] [address] * POC, GLUCOSE (06/07/2024 4:31 PM EST) Glucometer, POC 174 65 - 199 mg/dL 06/07/2024 4:34 PM EST [facility] Comment:Supplemental ranges: <140 mg/dL before meals <180 mg/dL all other times of the day. Blood CAPILLARY BLOOD / Unknown 06/07/2024 4:31 PM EST 06/07/2024 4:34 PM EST Melida Valdes MD POINT OF CARE TEST O NIKA [facility] [place] [address] * MRI Cardiac Morphology Function wwo Contrast (06/07/2024 1:10 PM EST) WORKSTATION ID [id number] DH RAD Anatomical Region Laterality Modality Magnetic [...] - Mildly dilated left ventricle size with byzskyhi-zv-cqaojzqj decreased LV systolic function. ??LV ejection fraction [...] who have questions please contact the health healthcare corporate account director that requested your imaging first. ? Electronically signed by: Kriss Alonzo MD, [facility] ([phone]), at 06/07/2024 2:41 PM Narrative 06/07/2024 2:41 [...] VENTRICLE: Mildly dilated left ventricle size with ynprujty-ud-jiqgnxak decreased LV systolic function. ??LV ejection fraction [...] VENTRICLE: Mildly dilated left ventricle size with faoonevs-dj-nlufztsg decreasedLV systolic function. LV ejection fraction is [...] - Mildly dilated left ventricle size with jryfxrhy-sz-efauctfb decreasedLV systolic function. LV ejection fraction is [...] patients who have questions please contactthe health healthcare corporate account director that requested your imaging first. Electronically signed by: Kriss Alonzo MD, [facility]([phone]), at 06/07/2024 2:41 PM Delroy Fofana MD IMG MRI ORDERABLES * (ABNORMAL) POC, GLUCOSE (06/07/2024 11:05 AM EST) Glucometer, POC 221(H) 65 - 199 mg/dL 06/07/2024 11:06 AM EST [facility] Comment:Supplemental ranges: <140 mg/dL before meals <180 mg/dL all other times of the day. Blood CAPILLARY BLOOD / Unknown 06/07/2024 11:05 AM EST 06/07/2024 11:06 AM EST Melida Valdes MD POINT OF CARE TEST O NIKA [facility] [place] [address] * (ABNORMAL) POC, GLUCOSE (06/07/2024 11:03 AM EST) Glucometer, POC 250(H) 65 - 199 mg/dL 06/07/2024 11:04 AM EST [facility] Comment:Supplemental ranges: <140 mg/dL before meals <180 mg/dL all other times of the day. Blood CAPILLARY BLOOD / Unknown 06/07/2024 11:03 AM EST 06/07/2024 11:04 AM EST Melida Valdes MD POINT OF CARE TEST Abimael MAHER [facility] [place] [address] * Potassium (06/07/2024 9:44 AM EST) Potassium 4.7 3.5 - 5.0 mMol/L 06/07/2024 10:23 AM EST [facility] Blood VENOUS BLOOD SPECIMEN / Unknown Venipuncture / Unknown 06/07/2024 9:44 AM EST 06/07/2024 9:57 AM EST Shahnaz Scanlon MD CHEMISTRY ORDERABLES Performing Organization Address [facility] Co de Phone Number [facility] [place] [address] * POC, GLUCOSE (06/07/2024 7:45 AM EST) Glucometer, POC 175 65 - 199 mg/dL 06/07/2024 7:45 AM EST [facility] Comment:Supplemental ranges: <140 mg/dL before meals <180 mg/dL all other times of the day. Blood CAPILLARY BLOOD / Unknown 06/07/2024 7:45 AM EST 06/07/2024 7:46 AM EST Melida Valdes MD POINT OF CARE TEST O RDERABLES Performing Organization Address [facility] de Phone Number [facility] [place] [address] * XR Chest PA & Lateral (Generic) (06/07/2024 7:03 AM EST) WORKSTATION ID [id number] DH RAD Anatomical Region Laterality Modality Chest N/A Digital Radiogra phy Impressions 06/07/2024 10:45 AM EST Biventricular ICD leads intact and in stable position I have personally reviewed the image(s) and the resident's interpretation and agree with the findings, Stuart Aponte MD at 06/07/2024 10:45 AM Thank you for letting us participate in the care of this patient. ??If you are a health care provider and have any questions regarding this report, please contact the number below. ??For patients who have questions please contact the health healthcare corporate account director that requested your imaging first. ? Electronically signed by: Stuart Aponte MD, [facility] ??([phone]), at 06/07/2024 10:45 AM Narrative 06/07/2024 10:45 AM EST EXAMINATION: XR CHEST PA AND LATERAL (GENERIC) CLINICAL HISTORY: pre-cardiac MRI evaluation TECHNIQUE: PA and lateral views of the chest COMPARISON: CT chest 06/03/2024, chest radiograph 06/03/2024 FINDINGS: Biventricular ICD leads are intact and in stable position in the right atrium, right ventricle and coronary sinus. The lungs are clear. No pneumothorax or pleural effusion. Procedure Note Stuart Aponte MD - 06/07/2024 EXAMINATION: XR CHEST PA AND LATERAL (GENERIC) CLINICAL HISTORY: pre-cardiac MRI evaluation TECHNIQUE: PA and lateral views of the chest COMPARISON: CT chest 06/03/2024, chest radiograph 06/03/2024 FINDINGS: Biventricular ICD leads are intact and in stable position in the rightatrium, right ventricle and coronary sinus. The lungs are clear. No pneumothorax or pleural effusion. IMPRESSION Biventricular ICD leads intact and in stable position I have personally reviewed the image(s) and the resident's interpretationand agree with the findings, Stuart Aponte MD at 06/07/2024 10:45 AM Thank you for letting us participate in the care of this patient. If youare a health care provider and have any questions regarding this report,please contact the number below. For patients who have questions please contactthe health healthcare corporate account director that requested your imaging first. Electronically signed by: Stuart Aponte MD, [facility]([phone]), at 06/07/2024 10:45 AM Shahnaz Scanlon MD IMG DX ORDERABLES * POC, GLUCOSE (06/07/2024 4:25 AM EST) [facility] Glucometer, POC 127 65 - 199 mg/dL 06/07/2024 4:26 AM EST [facility] Comment:Supplemental ranges: <140 mg/dL before meals <180 mg/dL all other times of the day. Blood CAPILLARY BLOOD / Unknown 06/07/2024 4:25 AM EST 06/07/2024 4:26 AM EST Melida Valdes MD POINT OF CARE TEST O RDERABLES Performing Organization Address [facility]/ZIP Co de Phone Number [facility] [place] [address] * Heparin (unfractionated) Level (06/07/2024 2:41 AM EST) UF Heparin 0.45 IU/mL 06/07/2024 3:03 AM EST [facility] Comment: Heparin (anti-Xa) levels should [...] BLOOD SPECIMEN / Unknown Venipuncture / Unknown 06/07/2024 2:41 AM EST 06/07/2024 2:53 AM EST Shahnaz Scanlon MD HEMATOLOGY ORDERABLE S Performing Organization Address City/[facility]/ZIP Co de Phone Number [facility] [place] [address] * (ABNORMAL) CBC (with Diff) (06/07/2024 2:41 AM EST) White Blood Cell 10.06(H) 4.00 - 9.50 x10(3)/mc L 06/07/2024 2:58 AM EST [facility] Red Blood Cell 5.02 4.58 - 5.54 x10(6)/mc L 06/07/2024 2:[address] [facility] Hemoglobin 14.8 13.7 - 16.5 g/dL 06/07/2024 2:[address] [facility] Hematocrit 46.2 40.5 - 48.5 % 06/07/2024 2:[address] [facility] Mean Cell Volume 92.0 82.9 - 93.1 fL 06/07/2024 2:[address] [facility] Mean Cell Hemoglobin 29.5 27.5 - 32.1 pg 06/07/2024 2:[address] [facility] Mean Cell Hemoglobin Concentration 32.0 32.0 - 35.7 g/dL 06/07/2024 2:[address] [facility] Platelet 202 145 - 357 x10(3)/mc L 06/07/2024 2:[address] [facility] Mean Platelet Volume 9.6 7.6 - 12.9 fL 06/07/2024 2:[address] [facility] RDW Standard Deviation 46.3(H) 36.0 - 45.0 fL 06/07/2024 2:[address] [facility] RDW coefficient of variation 13.8 11.4 - 13.8 % 06/07/2024 2:[address] [facility] NRBC% auto 0.0 % 06/07/2024 2:[address] [facility] NRBC Absolute <0.01 <0.01 x10(3)/mc L 06/07/2024 2:[address] [facility] Neutrophil % 55.9 % 06/07/2024 2:[address] [facility] Neutrophil Absolute (ANC) - Automated 5.62 1.70 - 6.10 x10(3)/mc L 06/07/2024 2:[address] [facility] Lymph % 28.3 % 06/07/2024 2:[address] [facility] Lymph Absolute 2.85 0.90 - 3.20 x10(3)/mc L 06/07/2024 2:58 AM EST [facility] Monocyte % 10.8 % 06/07/2024 2:[address] [facility] Monocyte Absolute 1.09(H) 0.30 - 0.90 x10(3)/mc L 06/07/2024 2:58 AM EST [facility] Eos % 3.6 % 06/07/2024 2:58 AM EST [facility] Eos Absolute 0.36 0.00 - 0.40 x10(3)/mc L 06/07/2024 2:58 AM EST [facility] Basophil % 0.8 % 06/07/2024 2:[address] [facility] Baso Absolute 0.08 0.00 - 0.10 x10(3)/mc L 06/07/2024 2:[address] [facility] Immature Gran % 0.6 % 2:[address] [facility] Immature Gran Absolute 0.06(H) 0.00 - 0.04 x10(3)/mc L 06/07/2024 2:[address] [facility] Blood VENOUS BLOOD SPECIMEN / Unknown Venipuncture / Unknown 06/07/2024 2:41 AM EST 06/07/2024 2:52 AM EST Shahnaz Scanlon MD HEMATOLOGY ORDERABLE S [facility] [place] [address] * Magnesium (06/07/2024 2:41 AM EST) Magnesium 0.92 0.69 - 1.07 mMol/L 06/07/2024 3:25 AM EST [facility] Blood VENOUS BLOOD SPECIMEN / Unknown Venipuncture / Unknown 06/07/2024 2:41 AM EST 06/07/2024 2:51 AM EST Shahnaz Scanlon MD CHEMISTRY ORDERABLES [facility] [place] [address] * (ABNORMAL) Basic Metabolic Panel (06/07/2024 2:41 AM EST) Glucose 140 65 - 199 mg/dL 06/07/2024 3:[address] [facility] Comment:Glucose Concentratio n >=200 mg/dL plus symptoms is consistent with Diabetes Mellitus. Blood Urea Nitrogen 26(H) 10 - 20 mg/dL 06/07/2024 3:[address] [facility] Creatinine 1.06 0.80 - 1.50 mg/dL 06/07/2024 3:[address] [facility] Sodium 136 135 - 145 mMol/L 06/07/2024 3:[address] [facility] Potassium 3.8 3.5 - 5.0 mMol/L 06/07/2024 3:[address] [facility] Chloride 98 98 - 107 mMol/L 06/07/2024 3:[address] [facility] Carbon Dioxide 28 22 - 31 mMol/L 06/07/2024 3:[address] [facility] Anion Gap 10 5 - 15 mMol/L 06/07/2024 3:[address] [facility] Calcium 9.4 8.5 - 10.5 mg/dL 06/07/2024 3:[address] [facility] Est Glomerular Filtration Rate - Male 77 mL/min/1. 73 m?? 06/07/2024 3:25 AM EST [facility] Comment: This patient's estimated GFR [...] BLOOD SPECIMEN / Unknown Venipuncture / Unknown 06/07/2024 2:41 AM EST 06/07/2024 2:51 AM EST Shahnaz Scanlon MD CHEMISTRY ORDERABLES Performing Organization Address [facility] Co de Phone Number [facility] [place] [address] * POC, GLUCOSE (06/07/2024 12:08 AM EST) Glucometer, POC 182 65 - 199 mg/dL 06/07/2024 12:09 AM EST [facility] Comment:Supplemental ranges: <140 mg/dL before meals <180 mg/dL all other times of the day. Blood CAPILLARY BLOOD / Unknown 06/07/2024 12:08 AM EST 06/07/2024 12:09 AM EST Melida Valdes MD POINT OF CARE TEST O RDBECKIE Performing Organization Address [facility] Co de Phone Number [facility] [place] [address] * POC, GLUCOSE (06/06/2024 8:18 PM EST) Glucometer, POC 143 65 - 199 mg/dL 06/06/2024 8:19 PM EST [facility] Comment:Supplemental ranges: <140 mg/dL before meals <180 mg/dL all other times of the day. Blood CAPILLARY BLOOD / Unknown 06/06/2024 8:18 PM EST 06/06/2024 8:19 PM EST Melida Valdes MD POINT OF CARE TEST O RDERAPIETER Performing Organization Address [facility] Co de Phone Number [facility] [place] [address] * POC, GLUCOSE (06/06/2024 3:39 PM EST) Glucometer, POC 147 65 - 199 mg/dL 06/06/2024 3:40 PM EST [facility] Comment:Supplemental ranges: <140 mg/dL before meals <180 mg/dL all other times of the day. Blood CAPILLARY BLOOD / Unknown 06/06/2024 3:39 PM EST 06/06/2024 3:40 PM EST Melida Valdes MD POINT OF CARE TEST O RDERABLES Performing Organization Address City/[facility] Co de Phone Number [facility] [place] [address] * Potassium (06/06/2024 2:37 PM EST) Potassium 4.3 3.5 - 5.0 mMol/L 06/06/2024 3:01 PM EST [facility] Blood VENOUS BLOOD SPECIMEN / Unknown Venipuncture / Unknown 06/06/2024 2:37 PM EST 06/06/2024 2:42 PM EST Shahnaz Scanlon MD CHEMISTRY ORDERABLES Performing Organization Address [facility] Co de Phone Number [facility] [place] [address] * (ABNORMAL) POC, GLUCOSE (06/06/2024 1:39 PM EST) Glucometer, POC 317(H) 65 - 199 mg/dL 06/06/2024 1:40 PM EST [facility] Comment:Supplemental ranges: <140 mg/dL before meals <180 mg/dL all other times of the day. Blood CAPILLARY BLOOD / Unknown 06/06/2024 1:39 PM EST 06/06/2024 1:41 PM EST Melida Valdes MD POINT OF CARE TEST O RDERABLES Performing Organization Address City/[facility]/ZIP Co de Phone Number [facility] [place] [address] * (ABNORMAL) POC, GLUCOSE (06/06/2024 11:34 AM EST) Glucometer, POC 264(H) 65 - 199 mg/dL 06/06/2024 11:35 AM EST [facility] Comment:Supplemental ranges: <140 mg/dL before meals <180 mg/dL all other times of the day. Blood CAPILLARY BLOOD / Unknown 06/06/2024 11:34 AM EST 06/06/2024 11:35 AM EST Melida Valdes MD POINT OF CARE TEST O NIKA Performing Organization Address [facility] Co de Phone Number [facility] [place] [address] * Potassium (06/06/2024 10:17 AM EST) Potassium 4.3 3.5 - 5.0 mMol/L 06/06/2024 10:46 AM EST [facility] Blood VENOUS BLOOD SPECIMEN / Unknown Venipuncture / Unknown 06/06/2024 10:17 AM EST 06/06/2024 10:22 AM EST Shahnaz Scanlon MD CHEMISTRY ORDERABLES Performing Organization Address [facility] de Phone Number [facility] [place] [address] * POC, GLUCOSE (06/06/2024 7:57 AM EST) Glucometer, POC 195 65 - 199 mg/dL 06/06/2024 8:03 AM EST [facility] Comment:Supplemental ranges: <140 mg/dL before meals <180 mg/dL all other times of the day. Blood CAPILLARY BLOOD / Unknown 06/06/2024 7:57 AM EST 06/06/2024 8:03 AM EST Melida Valdes MD POINT OF CARE TEST O NIKA Performing Organization Address City/[facility]/ZIP Co de Phone Number [facility] [place] [address] * POC, GLUCOSE (06/06/2024 6:53 AM EST) Glucometer, POC 187 65 - 199 mg/dL 06/06/2024 6:53 AM EST [facility] Comment:Supplemental ranges: <140 mg/dL before meals <180 mg/dL all other times of the day. Blood CAPILLARY BLOOD / Unknown 06/06/2024 6:53 AM EST 06/06/2024 6:54 AM EST eMlida Valdes MD POINT OF CARE TEST O RDERABLES Performing Organization Address City/[facility] Co de Phone Number [facility] [place] [address] * (ABNORMAL) Hemoglobin A1c (06/06/2024 3:33 AM EST) [facility] Hemoglobin A1c 7.1(H) 4.3 - 5.6 % 06/06/2024 1:01 PM EST [facility] Comment: Per ADA guidelines, without [...] red blood cell turnover may not be nutrition representative of glycemic control. Reference Interval: 4.3 - 5.6% 5.7 - 6.4%: Consistent with prediabetes >=6.5%: Consistent with diagnosis of diabetes mellitus Estimated Average Glucose 157 mg/dL 06/06/2024 1:01 PM EST [facility] Blood VENOUS BLOOD SPECIMEN / Unknown Venipuncture / Unknown 06/06/2024 3:33 AM EST 06/06/2024 3:48 AM EST Alejandra G [place] [employer] CHEMISTRY ORDERAB LES Performing Organization Address [facility]/ZIP Co de Phone Number [facility] [place] [address] * Heparin (unfractionated) Level (06/06/2024 3:33 AM EST) UF Heparin 0.36 IU/mL 06/06/2024 3:59 AM EST [facility] Comment: Heparin (anti-Xa) levels should [...] 3:33 AM EST 06/06/2024 3:48 AM EST Shahnaz Scanlon MD HEMATOLOGY ORDERABLE S Performing Organization Address City/[facility]/ZIP Co de Phone Number [facility] [place] [address] * (ABNORMAL) CBC (with Diff) (06/06/2024 3:33 AM EST) White Blood Cell 9.81(H) 4.00 - 9.50 x10(3)/mc L 06/06/2024 3:54 AM EST [facility] Red Blood Cell 4.91 4.58 - 5.54 x10(6)/mc L 06/06/2024 3:54 AM EST [facility] Hemoglobin 14.6 13.7 - 16.5 g/dL 06/06/2024 3:[address] [facility] Hematocrit 45.4 40.5 - 48.5 % 06/06/2024 3:[address] [facility] Mean Cell Volume 92.5 82.9 - 93.1 fL 06/06/2024 3:[address] [facility] Mean Cell Hemoglobin 29.7 27.5 - 32.1 pg 06/06/2024 3:[address] [facility] Mean Cell Hemoglobin Concentration 32.2 32.0 - 35.7 g/dL 06/06/2024 3:[address] [facility] Platelet 199 145 - 357 x10(3)/mc L 06/06/2024 3:[address] [facility] Mean Platelet Volume 9.5 7.6 - 12.9 fL 06/06/2024 3:[address] [facility] RDW Standard Deviation 47.2(H) 36.0 - 45.0 fL 06/06/2024 3:[address] [facility] RDW coefficient of variation 13.9(H) 11.4 - 13.8 % 06/06/2024 3:[address] [facility] [facility] NRBC% auto 0.0 % 06/06/2024 3:[address] [facility] [facility] NRBC Absolute <0.01 <0.01 x10(3)/mc L 06/06/2024 3:[address] [facility] [facility] Neutrophil % 56.8 % 06/06/2024 3:[address] [facility] [facility] Neutrophil Absolute (ANC) - Automated 5.57 1.70 - 6.10 x10(3)/mc L 06/06/2024 3:[address] [facility] [facility] Lymph % 27.6 % 06/06/2024 3:[address] [facility] [facility] Lymph Absolute 2.71 0.90 - 3.20 x10(3)/mc L 06/06/2024 3:[address] [facility] [facility] Monocyte % 11.1 % 06/06/2024 3:54 AM EST [facility] Monocyte Absolute 1.09(H) 0.30 - 0.90 x10(3)/mc L 06/06/2024 3:[address] [facility] [facility] Eos % 3.0 % 06/06/2024 3:[address] [facility] [facility] Eos Absolute 0.29 0.00 - 0.40 x10(3)/mc L 06/06/2024 3:54 AM EST [facility] Basophil % 0.9 % 06/06/2024 3:[address] [facility] [facility] Baso Absolute 0.09 0.00 - 0.10 x10(3)/mc L 06/06/2024 3:[address] [facility] Immature Gran % 0.6 % 3:[address] [facility] Immature Gran Absolute 0.06(H) 0.00 - 0.04 x10(3)/mc L 06/06/2024 3:[address] [facility] [facility] Blood VENOUS BLOOD SPECIMEN / Unknown Venipuncture / Unknown 06/06/2024 3:33 AM EST 06/06/2024 3:48 AM EST Shahnaz Scanlon MD HEMATOLOGY ORDERABLE S [facility] [place] [address] * Magnesium (06/06/2024 3:33 AM EST) Magnesium 0.92 0.69 - 1.07 mMol/L 06/06/2024 4:17 AM EST [facility] Blood VENOUS BLOOD SPECIMEN / Unknown Venipuncture / Unknown 06/06/2024 3:33 AM EST 06/06/2024 3:47 AM EST Shahnaz Scanlon MD CHEMISTRY ORDERABLES [facility] [place] [address] * (ABNORMAL) Basic Metabolic Panel (06/06/2024 3:33 AM EST) Glucose 190 65 - 199 mg/dL 06/06/2024 4:[address] [facility] [facility] Comment:Glucose Concentratio n >=200 mg/dL plus symptoms is consistent with Diabetes Mellitus. Blood Urea Nitrogen 27(H) 10 - 20 mg/dL 06/06/2024 4:[address] [facility] [facility] Creatinine 1.12 0.80 - 1.50 mg/dL 06/06/2024 4:[address] [facility] [facility] Sodium 136 135 - 145 mMol/L 06/06/2024 4:[address] [facility] Potassium 4.0 3.5 - 5.0 mMol/L 06/06/2024 4:[address] [facility] Chloride 97(L) 98 - 107 mMol/L 06/06/2024 4:[address] [facility] Carbon Dioxide 26 22 - 31 mMol/L 06/06/2024 4:[address] [facility] Anion Gap 13 5 - 15 mMol/L 06/06/2024 4:[address] [facility] Calcium 9.1 8.5 - 10.5 mg/dL 06/06/2024 4:[address] [facility] Est Glomerular Filtration Rate - Male 72 mL/min/1. 73 m?? 06/06/2024 4:[address] [facility] [facility] Comment: This patient's estimated GFR [...] / Unknown 06/06/2024 3:33 AM EST 06/06/2024 3:47 AM EST Shahnaz Scanlon MD CHEMISTRY ORDERABLES Performing Organization Address [facility]/ZIP Co de Phone Number [facility] [place] [address] * (ABNORMAL) POC, GLUCOSE (06/05/2024 10:31 PM EDT) Glucometer, POC 238(H) 65 - 199 mg/dL 06/05/2024 10:31 PM EDT [facility] Comment:Supplemental ranges: <140 mg/dL before meals <180 mg/dL all other times of the day. Blood CAPILLARY BLOOD / Unknown 06/05/2024 10:31 PM EDT 06/05/2024 10:31 PM EDT Melida Valdes MD POINT OF CARE TEST O RDBECKIE Performing Organization Address [facility]/ZIP Co de Phone Number [facility] [place] [address] * (ABNORMAL) POC, GLUCOSE (06/05/2024 4:22 PM EDT) Glucometer, POC 205(H) 65 - 199 mg/dL 06/05/2024 4:22 PM EDT [facility] Comment:Supplemental ranges: <140 mg/dL before meals <180 mg/dL all other times of the day. Blood CAPILLARY BLOOD / Unknown 06/05/2024 4:22 PM EDT 06/05/2024 4:23 PM EDT Melida Valdes MD POINT OF CARE TEST O NIKA [facility] [place] [address] * (ABNORMAL) POC, GLUCOSE (06/05/2024 11:34 AM EDT) Glucometer, POC 211(H) 65 - 199 mg/dL 06/05/2024 11:34 AM EDT [facility] Comment:Supplemental ranges: <140 mg/dL before meals <180 mg/dL all other times of the day. Blood CAPILLARY BLOOD / Unknown 06/05/2024 11:34 AM EDT 06/05/2024 11:34 AM EDT Melida Valdes MD POINT OF CARE TEST O RDBECKIE [facility] [place] [address] * Potassium (06/05/2024 9:04 AM EDT) Potassium 4.3 3.5 - 5.0 mMol/L 06/05/2024 9:50 AM EDT [facility] Blood VENOUS BLOOD SPECIMEN / Unknown Venipuncture / Unknown 06/05/2024 9:04 AM EDT 06/05/2024 9:21 AM EDT Shahnaz Scanlon MD CHEMISTRY ORDERABLES Performing Organization Address [facility] Co de Phone Number [facility] [place] [address] * POC, GLUCOSE (06/05/2024 7:27 AM EDT) Glucometer, POC 166 65 - 199 mg/dL 06/05/2024 7:27 AM EDT [facility] Comment:Supplemental ranges: <140 mg/dL before meals <180 mg/dL all other times of the day. Blood CAPILLARY BLOOD / Unknown 06/05/2024 7:27 AM EDT 06/05/2024 7:27 AM EDT Melida Valdes MD POINT OF CARE TEST O RDERAPIETER Performing Organization Address City/[facility]/ZIP Co de Phone Number [facility] [place] [address] * Heparin (unfractionated) Level (06/05/2024 3:44 AM EDT) Pathologist [facility] UF Heparin 0.44 IU/mL 06/05/2024 4:07 AM EDT [facility] Comment: Heparin (anti-Xa) levels should [...] BLOOD SPECIMEN / Unknown Venipuncture / Unknown 06/05/2024 3:44 AM EDT 06/05/2024 3:50 AM EDT Shahnaz Scanlon MD HEMATOLOGY ORDERABLE S Performing Organization Address City/State/[facility] Co de Phone Number [facility] [place] [address] * (ABNORMAL) CBC (with Diff) (06/05/2024 3:44 AM EDT) Pathologist [facility] White Blood Cell 10.83(H) 4.00 - 9.50 x10(3)/mc L 06/05/2024 3:56 AM EDT [facility] Red Blood Cell 5.07 4.58 - 5.54 x10(6)/mc L 06/05/2024 3:56 AM EDT [facility] Hemoglobin 15.3 13.7 - 16.5 g/dL 06/05/2024 3:56 AM EDT [facility] Hematocrit 46.8 40.5 - 48.5 % 06/05/2024 3:56 AM [facility] Mean Cell Volume 92.3 82.9 - 93.1 fL 06/05/2024 3:56 AM [facility] Mean Cell Hemoglobin 30.2 27.5 - 32.1 pg 06/05/2024 3:56 AM [facility] Mean Cell Hemoglobin Concentration 32.7 32.0 - 35.7 g/dL 06/05/2024 3:56 AM [facility] Platelet 219 145 - 357 x10(3)/mc L 06/05/2024 3:56 AM [facility] Mean Platelet Volume 9.4 7.6 - 12.9 fL 06/05/2024 3:56 AM [facility] RDW Standard Deviation 46.7(H) 36.0 - 45.0 fL 06/05/2024 3:56 AM [facility] RDW coefficient of variation 13.9(H) 11.4 - 13.8 % 06/05/2024 3:56 AM [facility] NRBC% auto 0.0 % 06/05/2024 3:56 AM [facility] NRBC Absolute <0.01 <0.01 x10(3)/mc L 06/05/2024 3:56 AM [facility] Neutrophil % 61.5 % 06/05/2024 3:56 AM [facility] Neutrophil Absolute (ANC) - Automated 6.65(H) 1.70 - 6.10 x10(3)/mc L 06/05/2024 3:56 AM [facility] Lymph % 24.0 % 06/05/2024 3:56 AM [facility] Lymph Absolute 2.60 0.90 - 3.20 x10(3)/mc L 06/05/2024 3:56 AM [facility] Monocyte % 10.9 % 06/05/2024 3:56 AM [facility] Monocyte Absolute 1.18(H) 0.30 - 0.90 x10(3)/mc L 06/05/2024 3:56 AM EDT [facility] Eos % 2.2 % 06/05/2024 3:56 AM EDT [facility] Eos Absolute 0.24 0.00 - 0.40 x10(3)/mc L 06/05/2024 3:56 AM EDT [facility] Basophil % 0.8 % 06/05/2024 3:56 AM EDT [facility] Baso Absolute 0.09 0.00 - 0.10 x10(3)/mc L 06/05/2024 3:56 AM EDT [facility] Immature Gran % 0.6 % 3:56 AM EDT [facility] Immature Gran Absolute 0.07(H) 0.00 - 0.04 x10(3)/mc L 06/05/2024 3:56 AM EDT [facility] Blood VENOUS BLOOD SPECIMEN / Unknown Venipuncture / Unknown 06/05/2024 3:44 AM EDT 06/05/2024 3:50 AM EDT Shahnaz Scanlon MD HEMATOLOGY ORDERABLE S [facility] [place] [address] * Magnesium (06/05/2024 3:44 AM EDT) Magnesium 0.92 0.69 - 1.07 mMol/L 06/05/2024 4:20 AM EDT [facility] Blood VENOUS BLOOD SPECIMEN / Unknown Venipuncture / Unknown 06/05/2024 3:44 AM EDT 06/05/2024 3:50 AM EDT Shahnaz Scanlon MD CHEMISTRY ORDERABLES [facility] [place] [address] * (ABNORMAL) Basic Metabolic Panel (06/05/2024 3:44 AM EDT) Glucose 155 65 - 199 mg/dL 06/05/2024 4:20 AM [facility] Comment:Glucose Concentratio n >=200 mg/dL plus symptoms is consistent with Diabetes Mellitus. Blood Urea Nitrogen 25(H) 10 - 20 mg/dL 06/05/2024 4:20 AM [facility] Creatinine 1.16 0.80 - 1.50 mg/dL 06/05/2024 4:20 AM [facility] Sodium 136 135 - 145 mMol/L 06/05/2024 4:20 AM [facility] Potassium 3.9 3.5 - 5.0 mMol/L 06/05/2024 4:20 AM [facility] Chloride 95(L) 98 - 107 mMol/L 06/05/2024 4:20 AM [facility] Carbon Dioxide 29 22 - 31 mMol/L 06/05/2024 4:20 AM [facility] Anion Gap 12 5 - 15 mMol/L 06/05/2024 4:20 AM [facility] Calcium 9.2 8.5 - 10.5 mg/dL 06/05/2024 4:20 AM [facility] Est Glomerular Filtration Rate - Male 69 mL/min/1. 73 m?? 06/05/2024 4:20 AM [facility] Comment: This patient's estimated GFR [...] BLOOD SPECIMEN / Unknown Venipuncture / Unknown 06/05/2024 3:44 AM EDT 06/05/2024 3:50 AM EDT Shahnaz Scanlon MD CHEMISTRY ORDERABLES Performing Organization Address [facility]/ZIP Co de Phone Number [facility] [place] [address] * Potassium (06/04/2024 10:34 PM EDT) Potassium 3.7 3.5 - 5.0 mMol/L 06/04/2024 11:03 PM EDT [facility] Blood VENOUS BLOOD SPECIMEN / Unknown Venipuncture / Unknown 06/04/2024 10:34 PM EDT 06/04/2024 10:39 PM EDT Shahnaz Scanlon MD CHEMISTRY ORDERABLES Performing Organization Address [facility] Co de Phone Number [facility] [place] [address] * POC, GLUCOSE (06/04/2024 7:43 PM EDT) Glucometer, POC 175 65 - 199 mg/dL 06/04/2024 7:43 PM EDT [facility] Comment:Supplemental ranges: <140 mg/dL before meals <180 mg/dL all other times of the day. Blood CAPILLARY BLOOD / Unknown 06/04/2024 7:43 PM EDT 06/04/2024 7:43 PM EDT Melida Valdes MD POINT OF CARE TEST O RDERABLES Performing Organization Address [facility]/ZIP Co de Phone Number [facility] [place] [address] * Potassium (06/04/2024 4:35 PM EDT) Potassium 4.0 3.5 - 5.0 mMol/L 06/04/2024 5:32 PM EDT [facility] Blood VENOUS BLOOD SPECIMEN / Unknown Venipuncture / Unknown 06/04/2024 4:35 PM EDT 06/04/2024 4:40 PM EDT Shahnaz Scanlon MD CHEMISTRY ORDERABLES [facility] [place] [address] * POC, GLUCOSE (06/04/2024 3:26 PM EDT) Glucometer, POC 154 65 - 199 mg/dL 06/04/2024 3:26 PM EDT [facility] Comment:Supplemental ranges: <140 mg/dL before meals <180 mg/dL all other times of the day. Blood CAPILLARY BLOOD / Unknown 06/04/2024 3:26 PM EDT 06/04/2024 3:27 PM EDT Melida Valdes MD POINT OF CARE TEST O RDERABLES [facility] [place] [address] * POC, GLUCOSE (06/04/2024 11:09 AM EDT) Glucometer, POC 188 65 - 199 mg/dL 06/04/2024 11:09 AM EDT [facility] Comment:Supplemental ranges: <140 mg/dL before meals <180 mg/dL all other times of the day. Blood CAPILLARY BLOOD / Unknown 06/04/2024 11:09 AM EDT 06/04/2024 11:09 AM EDT Delroy Fofana MD POINT OF CARE TEST ORDERABLES [facility] [place] [address] * Heparin (unfractionated) Level (06/04/2024 10:41 AM EDT) UF Heparin 0.43 IU/mL 06/04/2024 11:06 AM EDT [facility] Comment: Heparin (anti-Xa) levels should [...] BLOOD SPECIMEN / Unknown Venipuncture / Unknown 06/04/2024 10:41 AM EDT 06/04/2024 10:46 AM EDT Shahnaz Scanlon MD HEMATOLOGY ORDERABLE S Performing Organization Address City/[facility]/ZIP Co de Phone Number [facility] [place] [address] * Potassium (06/04/2024 10:41 AM EDT) [facility] Potassium 4.0 3.5 - 5.0 mMol/L 06/04/2024 11:11 AM EDT [facility] Blood VENOUS BLOOD SPECIMEN / Unknown Venipuncture / Unknown 06/04/2024 10:41 AM EDT 06/04/2024 10:46 AM EDT Shahnaz Scanlon MD CHEMISTRY ORDERABLES Performing Organization Address City/[facility]/ZIP Co de Phone Number [facility] [place] [address] * POC, GLUCOSE (06/04/2024 7:11 AM EDT) Pathologist [facility] Glucometer, POC 182 65 - 199 mg/dL 06/04/2024 7:12 AM EDT [facility] Comment:Supplemental ranges: <140 mg/dL before meals <180 mg/dL all other times of the day. Blood CAPILLARY BLOOD / Unknown 06/04/2024 7:11 AM EDT 06/04/2024 7:12 AM EDT Delroy Fofana MD POINT OF CARE TEST ORDERABLES Performing Organization Address [facility]/ZIP Co de Phone Number [facility] [place] [address] * Heparin (unfractionated) Level (06/04/2024 4:38 AM EDT) UF Heparin 0.41 IU/mL 06/04/2024 5:19 AM EDT [facility] Comment: Heparin (anti-Xa) levels should [...] BLOOD SPECIMEN / Unknown Venipuncture / Unknown 06/04/2024 4:38 AM EDT 06/04/2024 5:07 AM EDT Shahnaz Scanlon MD HEMATOLOGY ORDERABLE S Performing Organization Address City/[facility]/ZIP Co de Phone Number [facility] [place] [address] * (ABNORMAL) CBC (with Diff) (06/04/2024 4:38 AM EDT) White Blood Cell 11.45(H) 4.00 - 9.50 x10(3)/mc L 06/04/2024 5:12 AM [facility] Red Blood Cell 5.35 4.58 - 5.54 x10(6)/mc L 06/04/2024 5:12 AM [facility] Hemoglobin 16.0 13.7 - 16.5 g/dL 06/04/2024 5:12 AM [facility] Hematocrit 49.6(H) 40.5 - 48.5 % 06/04/2024 5:12 AM [facility] Mean Cell Volume 92.7 82.9 - 93.1 fL 06/04/2024 5:12 AM [facility] Mean Cell Hemoglobin 29.9 27.5 - 32.1 pg 06/04/2024 5:12 AM [facility] Mean Cell Hemoglobin Concentration 32.3 32.0 - 35.7 g/dL 06/04/2024 5:12 AM [facility] Platelet 222 145 - 357 x10(3)/mc L 06/04/2024 5:12 AM [facility] Mean Platelet Volume 9.5 7.6 - 12.9 fL 06/04/2024 5:12 AM [facility] RDW Standard Deviation 47.6(H) 36.0 - 45.0 fL 06/04/2024 5:12 AM [facility] RDW coefficient of variation 14.1(H) 11.4 - 13.8 % 06/04/2024 5:12 AM [facility] NRBC% auto 0.0 % 06/04/2024 5:12 AM [facility] NRBC Absolute <0.01 <0.01 x10(3)/mc L 06/04/2024 5:12 AM [facility] Neutrophil % 60.3 % 06/04/2024 5:12 AM EDT [facility] Neutrophil Absolute (ANC) - Automated 6.91(H) 1.70 - 6.10 x10(3)/mc L 06/04/2024 5:12 AM EDT [facility] Lymph % 25.1 % 06/04/2024 5:12 AM EDT [facility] Lymph Absolute 2.87 0.90 - 3.20 x10(3)/mc L 06/04/2024 5:12 AM EDT [facility] Monocyte % 10.6 % 06/04/2024 5:12 AM EDT [facility] Monocyte Absolute 1.21(H) 0.30 - 0.90 x10(3)/mc L 06/04/2024 5:12 AM EDT [facility] Eos % 2.8 % 06/04/2024 5:12 AM EDT [facility] Eos Absolute 0.32 0.00 - 0.40 x10(3)/mc L 06/04/2024 5:12 AM EDT [facility] Basophil % 0.7 % 06/04/2024 5:12 AM EDT [facility] Baso Absolute 0.08 0.00 - 0.10 x10(3)/mc L 06/04/2024 5:12 AM EDT [facility] Immature Gran % 0.5 % 5:12 AM EDT [facility] Immature Gran Absolute 0.06(H) 0.00 - 0.04 x10(3)/mc L 06/04/2024 5:12 AM EDT [facility] Blood VENOUS BLOOD SPECIMEN / Unknown Venipuncture / Unknown 06/04/2024 4:38 AM EDT 06/04/2024 5:07 AM EDT Shahnaz Scanlon MD HEMATOLOGY ORDERABLE S [facility] [place] [address] * Magnesium (06/04/2024 4:38 AM EDT) Magnesium 0.84 0.69 - 1.07 mMol/L 06/04/2024 5:35 AM EDT [facility] Blood VENOUS BLOOD SPECIMEN / Unknown Venipuncture / Unknown 06/04/2024 4:38 AM EDT 06/04/2024 5:07 AM EDT Shahnaz Scanlon MD CHEMISTRY ORDERABLES [facility] [place] [address] * (ABNORMAL) Basic Metabolic Panel (06/04/2024 4:38 AM EDT) Glucose 118 65 - 199 mg/dL 06/04/2024 5:35 AM EDT [facility] Comment:Glucose Concentratio n >=200 mg/dL plus symptoms is consistent with Diabetes Mellitus. Blood Urea Nitrogen 22(H) 10 - 20 mg/dL 06/04/2024 5:35 AM EDT [facility] Creatinine 1.22 0.80 - 1.50 mg/dL 06/04/2024 5:35 AM EDT [facility] Sodium 137 135 - 145 mMol/L 06/04/2024 5:35 AM EDT [facility] Potassium 3.6 3.5 - 5.0 mMol/L 06/04/2024 5:35 AM EDT [facility] Chloride 97(L) 98 - 107 mMol/L 06/04/2024 5:35 AM EDT [facility] Carbon Dioxide 29 22 - 31 mMol/L 06/04/2024 5:35 AM EDT [facility] Anion Gap 11 5 - 15 mMol/L 06/04[facility]24 [facility] Calcium 9.0 8.5 - 10.5 mg/dL 06/04/2024 5:[facility] Est Glomerular Filtration Rate - Male 65 mL/min/1. 73 m?? 06/04/2024 5:35 AM EDT [facility] Comment: This patient's estimated GFR [...] BLOOD SPECIMEN / Unknown Venipuncture / Unknown 06/04/2024 4:38 AM EDT 06/04/2024 5:07 AM EDT Shahnaz Scanlon MD CHEMISTRY ORDERABLES Performing Organization Address City/State/[facility] Co de Phone Number [facility] [place] [address] * Heparin (unfractionated) Level (06/03/2024 8:58 PM EDT) UF Heparin 0.27 IU/mL 06/03/2024 9:33 PM EDT [facility] Comment: Heparin (anti-Xa) levels should [...] BLOOD SPECIMEN / Unknown Venipuncture / Unknown 06/03/2024 8:58 PM EDT 06/03/2024 9:05 PM EDT Shahnaz Scanlon MD HEMATOLOGY ORDERABLE S [facility] [place] [address] * POC, GLUCOSE (06/03/2024 8:05 PM EDT) Glucometer, POC 136 65 - 199 mg/dL 06/03/2024 8:05 PM EDT [facility] Comment:Supplemental ranges: <140 mg/dL before meals <180 mg/dL all other times of the day. Blood CAPILLARY BLOOD / Unknown 06/03/2024 8:05 PM EDT 06/03/2024 8:05 PM EDT Delroy Fofana MD POINT OF CARE TEST ORDERABLES Performing Organization Address City/[facility]/ZIP Co de Phone Number [facility] [place] [address] * POC, GLUCOSE (06/03/2024 5:48 PM EDT) Glucometer, POC 191 65 - 199 mg/dL 06/03/2024 5:48 PM EDT [facility] Comment:Supplemental ranges: <140 mg/dL before meals <180 mg/dL all other times of the day. Blood CAPILLARY BLOOD / Unknown 06/03/2024 5:48 PM EDT 06/03/2024 5:49 PM EDT Delroy Fofana MD POINT OF CARE TEST ORDERABLES [facility] [place] [address] * CT Chest wo Contrast (Generic) (06/03/2024 4:33 PM EDT) WORKSTATION ID [id number] DH RAD Anatomical Region Laterality Modality Chest Computed Tomogra phy Impressions 06/03/2024 4:47 PM EDT Cardiomegaly. Biventricular ICD leads in place. Thank you for letting us participate in the care of this patient. ??If you are a health care provider and have any questions regarding this report, please contact the number below. ??For patients who have questions please contact the health healthcare corporate account director that requested your imaging first. ? Electronically signed by: Stuart Aponte MD, [facility] ??([phone]), at 06/03/2024 4:47 PM Narrative 06/03/2024 4:47 [...] patients who have questions please contactthe health healthcare corporate account director that requested your imaging first. Electronically signed by: Stuart Aponte MD, [facility]([phone]), at 06/03/2024 4:47 PM Bobby Loja MD IMG CT ORDERABLES * Carotid Duplex, Bilateral (06/03/2024 2:19 PM EDT) VB Text Report Department: Vascular Surgery Lab Patient: [id number] (GEORGE MEHTA) CPT: 47393 Referring Physician: BOBBY LOJA ?? Phone: Indications: Pre-op CABG, ? [...] of Report VASCUBASE 06/03/2024 2:19 PM EDT Bobby Loja MD VASCULAR ORDERABLES Performing Organization Address City/[facility]/ZIP Co de Phone Number VASCUBASE * Heparin (unfractionated) Level (06/03/2024 12:48 PM EDT) UF Heparin 0.15 IU/mL 06/03/2024 1:13 PM EDT [facility] Comment: Heparin (anti-Xa) levels should [...] IU/mL Blood VENOUS BLOOD SPECIMEN / Unknown IP Care Team Draw / Unknown 06/03/2024 12:48 PM EDT 06/03/2024 12:57 PM EDT Shahnaz Scanlon MD HEMATOLOGY ORDERABLE S Performing Organization Address City/[facility]/ZIP Co de Phone Number [facility] [place] [address] * POC, GLUCOSE (06/03/2024 11:14 AM EDT) Glucometer, POC 166 65 - 199 mg/dL 06/03/2024 11:14 AM EDT [facility] Comment:Supplemental ranges: <140 mg/dL before meals <180 mg/dL all other times of the day. Blood CAPILLARY BLOOD / Unknown 06/03/2024 11:14 AM EDT 06/03/2024 11:14 AM EDT Delroy Fofana MD POINT OF CARE TEST ORDERABLES [facility] [place] [address] * (ABNORMAL) Troponin-T, High Sensitivity 3 Hour (06/03/2024 10:06 AM EDT) Troponin-T, High Sensitivity 266(H) <=22 ng/L 06/03/2024 10:50 AM EDT [facility] Comment: This patient's troponin T [...] troponin value can be found in the [facility] Test Catalog Troponin - https://one-.testcatalog.org/catalogs/565/files/11869 Reference: Fourth [place] Definition of Myocardial Infarction. Journal of the [place] [employer] 2018;72:1447-9690 Troponin-T, HS 3 hr delta 06/03/2024 10:50 AM EDT [facility] Comment:Delta troponin value not calculated, sample collected outside of delta calculation time limit. Blood VENOUS BLOOD SPECIMEN / Unknown IP Care Team Draw / Unknown 06/03/2024 10:06 AM EDT 06/03/2024 10:15 AM EDT Delroy Fofana MD CHEMISTRY ORDERABLE S Performing Organization Address [facility]/State/ZIP Co de Phone Number [facility] [place] [address] * ECHO COMPLETE W CONTRAST (06/03/2024 8:46 AM EDT) Anatomical Region Laterality Modality Cardiac Other 06/03/2024 6:52 AM EDT Narrative 06/03/2024 10:32 AM EDT [address] [place] [address] ? Echocardiogram Report Name: ASHLEY MEHTAJOSEFINA Shankar ?Study Date: 06/03/2024 06:52 AM : 1955 ? Height: 168 cm ? Account: [id number] Age: 69 yrs ? Weight: 102 kg Gender: Male ?BSA: 2.1 m2 Ordering Physician: SHAHNAZ SCANLON Referring Physician: NEHAL QUINTERO Performed By: Sara Kebede RDCS Reason For Study: STEMI Exam Location: [facility]. Interpretation Summary -Left ventricular systolic function is [...] fellow performed study of today's date). Procedure Complete-[id number]. Image enhancement Optison was used for left [...] Ao V2 VTI: 26.5 cm Ao Max Muriel: 124.3 cm/sec Ao valve max: 6.2 mmHg Ao valve mean: 3.2 mmHg MV E max muriel: 124.3 cm/sec MV A max muriel: 98.5 cm/sec MV E/A: 1.3 MV dec time: 0.16 sec Lat Peak E' Muriel: 5.5 cm/sec E/e' (lat): 22.4 Med Peak E' Muriel: 4.8 cm/sec E/e' (med): 26.0 E/e' Average: [...] Note Jonnie Jordan MD - 06/03/2024 [address] [place] [address] Echocardiogram Report Name: ASHLEY MEHTAJOSEFINA Shankar Study Date: 406:52 AM : 1955 Height: 168 cm Account: [id number] Age: 69 yrs Weight: 102 kg Gender: Male BSA: 2.1 m2 Ordering Physician: SHAHNAZ SCANLON Referring Physician: NEHAL QUINTERO Performed By: Sara Kebede RDCS Reason For Study: STEMI Exam Location: [facility]. Interpretation Summary -Left ventricular systolic function is [...] a fellow performed study of's date). Procedure Complete-[id number]. Image enhancement Optison was used for left [...] Ao V2 VTI: 26.5 cm Ao Max Muriel: 124.3 cm/sec Ao valve max: 6.2 mmHg Ao valve mean: 3.2 mmHg MV E max muriel: 124.3 cm/sec MV A max murile: 98.5 cm/sec MV E/A: 1.3 MV dec time: 0.16 sec Lat Peak E' Muriel: 5.5 cm/sec E/e' (lat): 22.4 Med Peak E' Muriel: 4.8 cm/sec E/e' (med): 26.0 E/e' Average: 24.2 JA(I,D): 1.8 cm2 Dimensionless index Aov: 0.57 I WMSI = 2.38 % Normal = 0 SegmentsSize X - Cannot 1 - Normal 2 - 3 - Akinetic 4 - 1-2small Interpret Hypokinetic Dyskinetic 3-5moderate 5 - 6-14large Aneurysmal 15-16diffuse Shahnaz Scanlon MD ECHO ORDERABLES * (ABNORMAL) Troponin-T, High Sensitivity 1 Hour (06/03/2024 8:27 AM EDT) Troponin-T, High Sensitivity 289(H) <=22 ng/L 06/03/2024 9:26 AM EDT [facility] Comment: This patient's troponin T [...] troponin value can be found in the [facility] Test Catalog Troponin - [email or web address]/catalogs/565/files/18085 Reference: Fourth [place] Definition of Myocardial Infarction. Journal of the [place] College [employer] 2018;72:5974-3589 Troponin-T, HS 1 hr delta 5 ng/L 06/03/2024 9:26 AM EDT [facility] Comment:The 1 hour Troponin T delta value is the absolute difference between the Troponin T concentrations of the initial and subsequent sample collected between 45 - 120 minutes following the initial collection. Blood VENOUS BLOOD SPECIMEN / Unknown IP Care Team Draw / Unknown 06/03/2024 8:27 AM EDT 06/03/2024 8:37 AM EDT Delroy Fofana MD CHEMISTRY ORDERABLE S [facility] [place] [address] * POC, GLUCOSE (06/03/2024 7:54 AM EDT) Pathologist Jenny Glucometer, POC 195 65 - 199 mg/dL 06/03/2024 7:55 AM EDT [facility] Comment:Supplemental ranges: <140 mg/dL before meals <180 mg/dL all other times of the day. Blood CAPILLARY BLOOD / Unknown 06/03/2024 7:54 AM EDT 06/03/2024 7:55 AM EDT Nuha Rojo MD POINT OF CARE TEST ORDERABLES [facility] [place] [address] * (ABNORMAL) Troponin-T, High Sensitivity (06/03/2024 7:39 AM EDT) Troponin-T, High Sensitivity Initial 284(H) <=22 ng/L 06/03/2024 8:29 AM EDT [facility] Comment: This patient's troponin T [...] troponin value can be found in the [facility] Test Catalog Troponin - https://[email or web address].org/catalogs/565/files/82628 Reference: Fourth [place] Definition of Myocardial Infarction. Journal of the [place] College [employer]iology 2018;72:6278-7212 Blood VENOUS BLOOD SPECIMEN / Unknown IP Care Team Draw / Unknown 06/03/2024 7:39 AM EDT 06/03/2024 7:48 AM EDT Delroy Fofana MD CHEMISTRY ORDERABLE S [facility] [place] [address] * (ABNORMAL) Troponin-T, High Sensitivity 3 Hour (06/03/2024 5:11 AM EDT) Pathologist [facility] Troponin-T, High Sensitivity 254(H) <=22 ng/L 06/03/2024 5:49 AM EDT [facility] Comment: This patient's troponin T [...] troponin value can be found in the [facility] Test Catalog Troponin - https://[email or web address]/catalogs/565/files/33178 Reference: Fourth [place] Definition of Myocardial Infarction. Journal of the [place] College [employer] Cardiology 2018;72:8563-6302 Troponin-T, HS 3 hr delta 46 ng/L 06/03/2024 5:49 AM EDT [facility] Comment:The 3 hour Troponin T delta value is the absolute difference between the Troponin T concentrations of the initial and subsequent sample collected between 2 h: 45 min and 6 h following the initial collection Blood VENOUS BLOOD SPECIMEN / Unknown IP Care Team Draw / Unknown 06/03/2024 5:11 AM EDT 06/03/2024 5:20 AM EDT Shahnaz Scanlon MD CHEMISTRY ORDERABLES [facility] [place] [address] * (ABNORMAL) Troponin-T, High Sensitivity 1 Hour (06/03/2024 3:07 AM EDT) Troponin-T, High Sensitivity 218(H) <=22 ng/L 06/03/2024 3:39 AM EDT [facility] Comment: This patient's troponin T [...] troponin value can be found in the [facility] Test Catalog Troponin - https://[email or web address]/catalogs/565/files/32722 Reference: Fourth [place] Definition of Myocardial Infarction. Journal of the [place] College [employer] Cardiology 2018;72:8572-6969 Troponin-T, HS 1 hr delta 10 ng/L 06/03/2024 3:39 AM EDT [facility] Comment:The 1 hour Troponin T delta value is the absolute difference between the Troponin T concentrations of the initial and subsequent sample collected between 45 - 120 minutes following the initial collection. Blood VENOUS BLOOD SPECIMEN / Unknown IP Care Team Draw / Unknown 06/03/2024 3:07 AM EDT 06/03/2024 3:12 AM EDT Shhanaz Scanlon MD CHEMISTRY ORDERABLES [facility] [place] [address] * XR Chest One View (06/03/2024 2:41 AM EDT) WORKSTATION ID [id number] RAD Anatomical Region Laterality Modality Chest N/A Digital Radiogra phy Impressions 06/03/2024 3:06 AM EDT No radiographically evident acute cardiopulmonary process. Thank you for letting us participate in the care of this patient. ??If you are a health care provider and have any questions regarding this report, please contact the number below. ??For patients who have questions please contact the health healthcare corporate account director that requested your imaging first. ? Narrative 06/03/2024 3:06 AM EDT EXAMINATION: XR CHEST ONE VIEW CLINICAL HISTORY: CHF TECHNIQUE: 1 view of the chest COMPARISON: None FINDINGS: Left anterior chest wall generator with leads projected at the right atrium, right ventricle and coronary sinus. No consolidation. No perihilar haziness. No pulmonary vascular distribution. No pleural effusion. No pneumothorax. Cardiac, mediastinal and hilar contours are within normal limits for projection and technique. No displaced rib fracture. Procedure Note Corazon Mauro MD - 06/03/2024 EXAMINATION: XR CHEST ONE VIEW CLINICAL HISTORY: CHF TECHNIQUE: 1 view of the chest COMPARISON: None FINDINGS: Left anterior chest wall generator with leads projected at the rightatrium, right ventricle and coronary sinus. No consolidation. No perihilarhaziness. No pulmonary vascular distribution. No pleural effusion. No pneumothorax.Cardiac, mediastinal and hilar contours are within normal limits for projectionand technique. No displaced rib fracture. IMPRESSION No radiographically evident acute cardiopulmonary process. Thank you for letting us participate in the care of this patient. If youare a health care provider and have any questions regarding this report,please contact the number below. For patients who have questions please contactthe health healthcare corporate account director that requested your imaging first. Electronically signed by: Corazon Mauro MD, [facility]([phone]), at 06/03/2024 3:06 AM Shahnaz Scanlon MD IMG DX ORDERABLES * Heparin (unfractionated) Level (06/03/2024 2:13 AM EDT) UF Heparin 0.56 IU/mL 06/03/2024 4:13 AM EDT [facility] Comment: Heparin (anti-Xa) levels should [...] indications in cardiac surgery): ? 0.1-0.3 IU/mL Specimen drawn more than one hour prior to testing. Results may not be reliable for heparin monitoring. Result may be falsely low. Blood VENOUS BLOOD SPECIMEN / Unknown IP Care Team Draw / Unknown 06/03/2024 2:13 AM EDT 06/03/2024 2:32 AM EDT Shahnaz Scanlon MD HEMATOLOGY ORDERABLE S Performing Organization Address City/[facility]/ZIP Co de Phone Number [facility] [place] [address] * (ABNORMAL) Troponin-T, High Sensitivity (06/03/2024 2:13 AM EDT) Troponin-T, High Sensitivity Initial 208(H) <=22 ng/L 06/03/2024 3:02 AM EDT [facility] Comment: This patient's troponin T [...] troponin value can be found in the [facility] Test Catalog Troponin - https://[email or web address]/catalogs/565/files/98460 Reference: Fourth [place] Definition of Myocardial Infarction. Journal of the [place] College [employer] Cardiology 2018;72:0535-1055 Blood VENOUS BLOOD SPECIMEN / Unknown IP Care Team Draw / Unknown 06/03/2024 2:13 AM EDT 06/03/2024 2:32 AM EDT Shahnaz Scanlon MD CHEMISTRY ORDERABLES [facility] [place] [address] * Magnesium (06/03/2024 2:13 AM EDT) Magnesium 0.86 0.69 - 1.07 mMol/L 06/03/2024 3:02 AM EDT [facility] Blood VENOUS BLOOD SPECIMEN / Unknown IP Care Team Draw / Unknown 06/03/2024 2:13 AM EDT 06/03/2024 2:32 AM EDT Shahnaz Scanlon MD CHEMISTRY ORDERABLES [facility] [place] [address] * Basic Metabolic Panel (06/03/2024 2:13 AM EDT) Glucose 126 65 - 199 mg/dL 06/03/2024 3:02 AM EDT [facility] Comment:Glucose Concentratio n >=200 mg/dL plus symptoms is consistent with Diabetes Mellitus. Blood Urea Nitrogen 20 10 - 20 mg/dL 06/03/2024 3:02 AM EDT [facility] Creatinine 1.13 0.80 - 1.50 mg/dL 06/03/2024 3:02 AM EDT [facility] Sodium 139 135 - 145 mMol/L 06/03/2024 3:02 AM EDT [facility] Potassium 4.2 3.5 - 5.0 mMol/L 06/03/2024 3:02 AM EDT [facility] Chloride 101 98 - 107 mMol/L 06/03/2024 3:02 AM EDT [facility] Carbon Dioxide 26 22 - 31 mMol/L 06/03/2024 3:02 AM EDT [facility] Anion Gap 12 5 - 15 mMol/L 06/03/2024 3:02 AM EDT [facility] Calcium 9.8 8.5 - 10.5 mg/dL 06/03/2024 3:02 AM EDT [facility] Est Glomerular Filtration Rate - Male 71 mL/min/1. 73 m?? 06/03/2024 3:02 AM EDT [facility] Comment: This patient's estimated GFR [...] Foundation Blood VENOUS BLOOD SPECIMEN / Unknown IP Care Team Draw / Unknown 06/03/2024 2:13 AM EDT 06/03/2024 2:32 AM EDT Shahnaz Scanlon MD CHEMISTRY ORDERABLES [facility] [place] [phone] * (ABNORMAL) CBC (with Diff) (06/03/2024 2:13 AM EDT) White Blood Cell 11.16(H) 4.00 - 9.50 x10(3)/mc L 06/03/2024 2:37 AM EDT [facility] Red Blood Cell 5.09 4.58 - 5.54 x10(6)/mc L 06/03/2024 2:37 AM EDT [facility] Hemoglobin 15.0 13.7 - 16.5 g/dL 06/03/2024 2:37 AM EDT [facility] Hematocrit 47.4 40.5 - 48.5 % 06/03/2024 2:37 AM EDT [facility] Mean Cell Volume 93.1 82.9 - 93.1 fL 06/03/2024 2:37 AM EDT [facility] Mean Cell Hemoglobin 29.5 27.5 - 32.1 pg 06/03/2024 2:37 AM [facility] Mean Cell Hemoglobin Concentration 31.6(L) 32.0 - 35.7 g/dL 06/03/2024 2:37 AM [facility] Platelet 217 145 - 357 x10(3)/mc L 06/03/2024 2:37 AM [facility] Mean Platelet Volume 9.5 7.6 - 12.9 fL 06/03/2024 2:37 AM [facility] RDW Standard Deviation 49.0(H) 36.0 - 45.0 fL 06/03/2024 2:37 AM [facility] RDW coefficient of variation 14.1(H) 11.4 - 13.8 % 06/03/2024 2:37 AM [facility] NRBC% auto 0.0 % 06/03/2024 2:37 AM [facility] NRBC Absolute <0.01 <0.01 x10(3)/mc L 06/03/2024 2:37 AM [facility] Neutrophil % 58.4 % 06/03/2024 2:37 AM [facility] Neutrophil Absolute (ANC) - Automated 6.51(H) 1.70 - 6.10 x10(3)/mc L 06/03/2024 2:37 AM [facility] Lymph % 29.9 % 06/03/2024 2:37 AM [facility] Lymph Absolute 3.34(H) 0.90 - 3.20 x10(3)/mc L 06/03/2024 2:37 AM [facility] Monocyte % 8.1 % 06/03/2024 2:37 AM [facility] Monocyte Absolute 0.90 0.30 - 0.90 x10(3)/mc L 06/03/2024 2:37 AM [facility] Eos % 2.4 % 06/03/2024 2:37 AM EDT [facility] Eos Absolute 0.27 0.00 - 0.40 x10(3)/mc L 06/03/2024 2:37 AM EDT [facility] Basophil % 0.8 % 06/03/2024 2:37 AM EDT [facility] Baso Absolute 0.09 0.00 - 0.10 x10(3)/mc L 06/03/2024 2:37 AM EDT [facility] Immature Gran % 0.4 % 2:37 AM EDT [facility] Immature Gran Absolute 0.05(H) 0.00 - 0.04 x10(3)/mc L 06/03/2024 2:37 AM EDT [facility] Blood VENOUS BLOOD SPECIMEN / Unknown IP Care Team Draw / Unknown 06/03/2024 2:13 AM EDT 06/03/2024 2:31 AM EDT Shahnaz Scanlon MD HEMATOLOGY ORDERABLE S [facility] [place] [address] * Lipid Panel (Reflex Direct LDL) (06/03/2024 2:13 AM EDT) Cholesterol, Total 76 mg/dL 06/03/2024 3:02 AM EDT [facility] Comment: Desirable: < 200 mg/dL Borderline High: 200 - 239 mg/dL High: > or = 240 mg/dL Triglyceride 75 mg/dL 06/03/2024 3:02 AM EDT [facility] Comment: Normal: <150 mg/dL Borderline High: 150-199 mg/dL High: 200-499 mg/dL Very High: > or =500 mg/dL HDL Cholesterol 39 mg/dL 3:02 AM EDT [facility] Comment:Males: High Risk: <4 0 mg/dL LDL Cholesterol 21 mg/dL 3:02 AM EDT [facility] Comment: Desirable: <100 mg/dL Above Desirable: 100-129 mg/dL Borderline High: 130-159 mg/dL High: 160-189 mg/dL Very High: > or =190 mg/dL Note: LDL calculation updated to the NIH LDL formula as of 03/07/2024 Non-HDL Cholesterol 37 mg/dL 06/03/2024 3:02 AM EDT [facility] Comment: Desirable: <130 mg/dL Above Desirable: 130-159 mg/dL Borderline High: 160-189 mg/dL High: 190-219 mg/dL Very High: > or = 220 mg/dL Blood VENOUS BLOOD SPECIMEN / Unknown IP Care Team Draw / Unknown 06/03/2024 2:13 AM EDT 06/03/2024 2:32 AM EDT [facility] - 06/03/2024 3:02 AM [...] ischemic stroke, symptomatic peripheral artery disease) Shahnaz Scanlon MD CHEMISTRY ORDERABLES Performing Organization Address [facility] Co de Phone Number [facility] [place] [address] * (ABNORMAL) APTT (06/03/2024 2:13 AM EDT) [facility] Partial Thromboplastin Time 105(HHH) 25 - 37 sec 06/03/2024 4:13 AM EDT [facility] Comment: The PTT is NOT appropriate for heparin monitoring. Use the Anti-Xa level for heparin monitoring (HEP UFH) or LMWH monitoring (HEP LMW). A PTT less than 37 seconds generally indicates adequate hemostasis. Blood VENOUS BLOOD SPECIMEN / Unknown IP Care Team Draw / Unknown 06/03/2024 2:13 AM EDT 06/03/2024 2:32 AM EDT Shahnaz Scanlon MD HEMATOLOGY ORDERABLE S Performing Organization Address City/[facility]/ZIP Co de Phone Number [facility] [place] [address] * Prothrombin Time (06/03/2024 2:13 AM EDT) Prothrombin Time 11.5 9.4 - 12.5 sec 06/03/2024 4:13 AM EDT [facility] International Normalization Ratio 1.0 <=4.9 06/03/2024 4:13 AM EDT [facility] Comment: An INR < 2.0 [...] be appropriate depending on clinical circumstances. Blood VENOUS BLOOD SPECIMEN / Unknown IP Care Team Draw / Unknown 06/03/2024 2:13 AM EDT 06/03/2024 2:32 AM EDT Shahnaz Scanlon MD HEMATOLOGY ORDERABLE S Performing Organization Address City/State/[facility] Co de Phone Number [facility] [place] [address] * Hepatic Function Panel (06/03/2024 2:13 AM EDT) Pathologist [facility] Albumin 3.8 3.2 - 5.2 g/dL 06/03/2024 3:02 AM EDT [facility] Aspartate Aminotransferase 20 <=39 unit/L 06/03/2024 3:02 AM EDT [facility] Alanine Aminotransferase 12 0 - 55 unit/L 06/03/2024 3:02 AM EDT [facility] Alkaline Phosphatase 76 40 - 130 unit/L 06/03/2024 3:02 AM EDT [facility] Bilirubin, Total 0.4 <=1.3 mg/dL 06/03/2024 3:02 AM EDT [facility] Bilirubin, Direct <0.2 0.0 - 0.3 mg/dL 06/03/2024 3:02 AM EDT [facility] Protein, Total 7.0 6.1 - 8.0 g/dL 06/03/2024 3:02 AM EDT [facility] Blood VENOUS BLOOD SPECIMEN / Unknown IP Care Team Draw / Unknown 06/03/2024 2:13 AM EDT 06/03/2024 2:32 AM EDT Shahnaz Scanlon MD CHEMISTRY ORDERABLES Performing Organization Address [facility] Co de Phone Number [facility] [place] [address] * (ABNORMAL) pro-Brain Natriuretic Peptide (06/03/2024 2:13 AM EDT) NT-proBNP 1,628(H) <=124 pg/mL 06/03/2024 4:15 AM EDT [facility] Blood VENOUS BLOOD SPECIMEN / Unknown IP Care Team Draw / Unknown 06/03/2024 2:13 AM EDT 06/03/2024 2:32 AM EDT Shahnaz Scanlon MD CHEMISTRY ORDERABLES Performing Organization Address [facility] Co de Phone Number [facility] [place] [address] * Phosphorus (06/03/2024 2:13 AM EDT) Phosphorus 4.4 2.5 - 4.5 mg/dL 06/03/2024 3:02 AM EDT [facility] Blood VENOUS BLOOD SPECIMEN / Unknown IP Care Team Draw / Unknown 06/03/2024 2:13 AM EDT 06/03/2024 2:32 AM EDT Shahnaz Scanlon MD CHEMISTRY ORDERABLES Performing Organization Address City/[facility]/ZIP Co de Phone Number [facility] [place] [address] * EKG 12 Lead (06/03/2024 1:45 AM EDT) Ventricular rate 63 BPM MUSE SYSTEM Atrial Rate 63 BPM MUSE SYSTEM P-R Interval 168 ms MUSE SYSTEM QRS Duration 96 ms MUSE SYSTEM Q-T Interval 400 ms MUSE SYSTEM QTC Calculated (Bezet) 409 ms MUSE SYSTEM Calculated P [place] 65 degrees MUSE SYSTEM Calculated R [place] 70 degrees MUSE SYSTEM Calculated T [place] -86 degrees MUSE SYSTEM INTERPRETATION Atrial-sensed ventricular-paced rhythm Abnormal ECG No previous ECGs available I personally reviewed the tracing and edited the fellows interpretation Confirmed by fellow Sunni Agudelo ([id number]) on 06/04/2024 3:55:40 PM Confirmed by MD Tamia, Stuart Perry ([id number]) on 06/05/2024 11:46:48 AM MUSE SYSTEM 06/03/2024 1:45 AM EDT 06/05/2024 11:46 AM EDT Shahnaz Scanlon MD ECG ORDERABLES MUSE SYSTEM * CARDIAC CATHETERIZATION (06/03/2024 12:42 AM EDT) Anatomical Region Laterality Modality Other Narrative 06/04/2024 2:22 PM EDT ?[facility] ? Cardiac Catheterization/Intervention Report ? Patient Name: George Mehta Raad. ? Procedure Date: 06/02/2024 ? A #: [id number] ? Primary Physician: Nuha Shen I ? Case #: [id number] ? File Name: [id number] ? Catheterization Order Number: [id number] ? [facility] ? Final Report [place], [place] ? Patient Name: ? George L. Tyson ? ID#: ?[id number] ? : ?1955 ? Procedure Date: ? June 02, 2024 ? Case #: ? [id number] ? Room: ? 5 ? Case Physician: ? Nuha Shen M.D. ? Start: ?23:23 ? Admission: ??06/02/2024 ? Referring Physician: ??Junaid Randall ?Discharge: ??06/21/2024 ? Procedures: ?* Coronary Angiography ?* Left Heart Catheterization ?* Coronary Ultrasound ? Pre Case Status: ?These procedures were performed on an emergent basis. ? History ?George Mehta is a 69 year old man. He has hypertension. The patient's ?smoking status is Current with Current - Every Day frequency, using ?cigarettes. Cigarette use is Light (<10/day). He has hypercholesterolemia ?managed with lipid therapy. The patient has diabetes managed with oral ?medication. He has a prior history of coronary artery disease. The ?patient is status post an acute ST elevation myocardial infarction. He ?had a remote coronary intervention procedure. The patient has a history ?of an ejection fraction less than or equal to 35%. He has a history of ?CHF. The CHF is NYHA Functional Class II and is classified as Systolic. ?He has an ICD implantation. The patient also has a history of chronic ?obstructive pulmonary disease. Prior to the initiation of this procedure, ?the patient was designated as ASA Class IV. The [facility] clinical frailty ?scale is 5: Mildly Frail. ? Diagnostic Tests: ?Electrocardiography: ? EKG was assessed by ECG. EKG was Abnormal. EKG showed ST Deviation ? >= 0.5 mm. ?Medications Prior to Procedure: ? Sacubitril and Valsartan, Aspirin, Beta Erik, Statin and ? Thrombolytic (any). ? Indications for Diagnostic Cath: ?The priority of the diagnostic procedure was Emergent. The indication for ?the seed laboratory technician visit is ACS less than or equal to 24 hrs. Chest pain ?symptom assessment was: Typical Angina. ? Technique: ?A 6 SLFr sheath was inserted in the right radial artery utilizing the ?Seldinger technique. The left coronary artery was injected utilizing a ?6Fr EBU 3.5 catheter. A 6Fr JR 4 catheter was used to inject the right ?coronary artery. Left ventricular pressure was performed utilizing a 6Fr ?JR 4 catheter. 5,000 units of heparin were administered. A total of 100cc ?of Omnipaque were opened, 84cc of Omnipaque were administered and 16cc of ?Omnipaque were wasted. Radiation: Fluoro time was 6.4 minutes, dose area ?product was 33.70 Gy/cm2 and air kerma was 398 mGY. See the case log for ?additional details. ?The patient received the following medications prior to and during the ?procedure: ? Unfractionated Heparin and Clopidogrel. ? Hemodynamics: ?Left Heart Pressures ? Resting: ? Syst Diast ? EDP ?a ?v ? m ?Ao 94 ?58 ?45 ?LV 103 ? 40 ? Coronary Angiography: ?Dominance: Left ?Left Main ? There was a 40% stenosis of the distal segment of the left main ? artery. ?Left Anterior Descending ? There was a 70% calcified diffuse stenosis of the proximal segment ? of the left anterior descending artery (LAD). ??The mid segment of ? the LAD had a calcified diffuse 70% stenosis. ?Left Circumflex ? There was a 60% stenosis of the proximal segment of the left ? circumflex artery (LCX). ??The mid segment of the LCX had a calcified ? diffuse 80% stenosis. ? There was a single discrete total occlusion of the ostial segment of ? the first obtuse marginal branch (OM1) of the LCX. ?Right Coronary Artery ? There was mild diffuse (<=25% stenosis) disease of the entire vessel ? segment of the right coronary artery (RCA). ? Intravascular Imaging/Physiology: ?Intravascular Ultrasound was performed in the distal LM using a 6 Fr EBU ?3.5 guiding catheter and a 3.5 Fr [facility] [place] 20 Mhz using Manual ?pullback. ??Imaging was successful. ??Image quality was fair. ?Indication: IVUS performed for left main disease. ?IVUS performed prior to any vessel manipulation. ?Findings Pre-Intervention: scattered plaque, diffuse plaque, ?calcification, with 360 degrees calcification and with nodules. ?Findings Post-Intervention: Stent not imaged post insertion. ?Conclusions: diagnostic IVUS. ?Intravascular Ultrasound was performed in the proximal LCX using a 6 Fr ?EBU 3.5 guiding catheter and a 3.5 Fr [facility] [place] 20 Mhz using ?Manual pullback. ??Imaging was successful. ?Indication: IVUS performed for pre intervention planning. ?Findings Pre-Intervention: scattered plaque, calcification and with 360 ?degrees calcification. ?Findings Post-Intervention: Stent not imaged post insertion. ?Conclusions: diagnostic IVUS. ? Vascular Access: ?Vascular Access Management: ? Mechanical Compression of the right radial artery access site was ? performed. ? Conclusions: ?* Two vessel coronary artery disease (LAD and LCX) ?* Elevated left ventricular end diastolic pressure ? Complications/Events: ?The patient had no complications during these procedures. ? Post Procedure Fluid Recommendations: ?IV fluid at 153 mL/hr for 4 hours for a total of 612 mL. These ?recommendations are made at the time of the procedure. Patient and ?provider preferences or a changing clinical situation may require ?modification of this regimen. ? Recommendations: ?Based upon the results of this procedure, it was recommended that the ?patient be managed with medical therapy. ?The attending physician was present for the entire procedure. ?Dr. Nuha Shen M.D. was present during the moderate sedation ?intraservice time as documented by the sedation nurse. ??Case time = 00:36. ?Dr. Nuha Shen M.D. performed the coronary angiography, left heart ?catheterization and IVUS # coronary. ? Nuha Shen, M.D. ? Electronically Signed by: Nuha Shen, M.D. ? Report Finalized: 06/04/2024 ??14:16 ? Report Last Ammended: 07/20/2024 ??15:36 ? Procedure Note Nuha Shen MD - 07/20/2024 [facility] Cardiac Catheterization/Intervention Report Patient Name: George Mehta Procedure Date: 06/02/2024 A #: [id number] Primary Physician: Nuha Shen I Case #: [id number] File Name: [id number] Catheterization Order Number: [id number] [facility] FinalReport [place], [place] Patient Name: George Mehta ID#:[id number] :[id number] Procedure Date: June 02, 2024 Case #: [id number] Room: 5 Case Physician: Nuha Shen M.D. Start: 23:23 Admission:06/02/2024 Referring Physician: Junaid Randall Discharge:06/21/2024 Procedures: * Coronary Angiography * Left Heart Catheterization * Coronary Ultrasound Pre Case Status: These procedures were performed on an emergent basis. History George Mehta is a 69 year old man. He has hypertension. Thepatient's smoking status is Current with Current - Every Day frequency, using cigarettes. Cigarette use is Light (<10/day). He hashypercholesterolemia managed with lipid therapy. The patient has diabetes managed withoral medication. He has a prior history of coronary artery disease. The patient is status post an acute ST elevation myocardial infarction.He had a remote coronary intervention procedure. The patient has ahistory of an ejection fraction less than or equal to 35%. He has a historyof CHF. The CHF is NYHA Functional Class II and is classified asSystolic. He has an ICD implantation. The patient also has a history ofchronic obstructive pulmonary disease. Prior to the initiation of thisprocedure, the patient was designated as ASA Class IV. The [facility] clinicalfrailty scale is 5: Mildly Frail. Diagnostic Tests: Electrocardiography: EKG was assessed by ECG. EKG was Abnormal. EKG showed STDeviation >= 0.5 mm. Medications Prior to Procedure: Sacubitril and Valsartan, Aspirin, Beta Erik, Statin and Thrombolytic (any). Indications for Diagnostic Cath: The priority of the diagnostic procedure was Emergent. Theindication for the seed laboratory technician visit is ACS less than or equal to 24 hrs. Chest pain symptom assessment was: Typical Angina. Technique: A 6 SLFr sheath was inserted in the right radial artery utilizingthe Seldinger technique. The left coronary artery was injected utilizinga 6Fr EBU 3.5 catheter. A 6Fr JR 4 catheter was used to inject theright coronary artery. Left ventricular pressure was performed utilizing a6Fr JR 4 catheter. 5,000 units of heparin were administered. A total [id number] of Omnipaque were opened, 84cc of Omnipaque were administered [id number] of Omnipaque were wasted. Radiation: Fluoro time was 6.4 minutes, dosearea product was 33.70 Gy/cm2 and air kerma was 398 mGY. See the case logfor additional details. The patient received the following medications prior to and duringthe procedure: Unfractionated Heparin and Clopidogrel. Hemodynamics: Left Heart Pressures Resting: Syst Diast EDP a v m Ao 94 58 45 LV 103 40 Coronary Angiography: Dominance: Left Left Main There was a 40% stenosis of the distal segment of the left main artery. Left Anterior Descending There was a 70% calcified diffuse stenosis of the proximalsegment of the left anterior descending artery (LAD). The mid segmentof the LAD had a calcified diffuse 70% stenosis. Left Circumflex There was a 60% stenosis of the proximal segment of the left circumflex artery (LCX). The mid segment of the LCX had acalcified diffuse 80% stenosis. There was a single discrete total occlusion of the ostialsegment of the first obtuse marginal branch (OM1) of the LCX. Right Coronary Artery There was mild diffuse (<=25% stenosis) disease of the entirevessel segment of the right coronary artery (RCA). Intravascular Imaging/Physiology: Intravascular Ultrasound was performed in the distal LM using a 6 FrEBU 3.5 guiding catheter and a 3.5 Fr [facility] [place] 20 Mhz usingManual pullback. Imaging was successful. Image quality was fair. Indication: IVUS performed for left main disease. IVUS performed prior to any vessel manipulation. Findings Pre-Intervention: scattered plaque, diffuse plaque, calcification, with 360 degrees calcification and with nodules. Findings Post-Intervention: Stent not imaged post insertion. Conclusions: diagnostic IVUS. Intravascular Ultrasound was performed in the proximal LCX using a 6Fr EBU 3.5 guiding catheter and a 3.5 Fr [facility] [place] 20 Mhzusing Manual pullback. Imaging was successful. Indication: IVUS performed for pre intervention planning. Findings Pre-Intervention: scattered plaque, calcification and [id number] degrees calcification. Findings Post-Intervention: Stent not imaged post insertion. Conclusions: diagnostic IVUS. Vascular Access: Vascular Access Management: Mechanical Compression of the right radial artery access sitewas performed. Conclusions: * Two vessel coronary artery disease (LAD and LCX) * Elevated left ventricular end diastolic pressure Complications/Events: The patient had no complications during these procedures. Post Procedure Fluid Recommendations: IV fluid at 153 mL/hr for 4 hours for a total of 612 mL. These recommendations are made at the time of the procedure. Patient and provider preferences or a changing clinical situation may require modification of this regimen. Recommendations: Based upon the results of this procedure, it was recommended thatthe patient be managed with medical therapy. The attending physician was present for the entire procedure. Dr. Nuha Shen M.D. was present during the moderate sedation intraservice time as documented by the sedation nurse. Case time =00:36. Dr. Nuha Shen M.D. performed the coronary angiography, leftheart catheterization and IVUS # coronary. Nuha Shen M.D. Electronically Signed by: Nuha Shen M.D. Report Finalized: 06/04/2024 14:16 Report Last Ammended: 07/20/2024 15:36 Nuha Rojo MD CARDIAC CATH ORDERA BLES * POC, GLUCOSE (06/02/2024 11:31 PM EDT) Glucometer, POC 156 65 - 199 mg/dL 06/02/2024 11:31 PM EDT [facility] Comment:Supplemental ranges: <140 mg/dL before meals <180 mg/dL all other times of the day. Blood CAPILLARY BLOOD / Unknown 06/02/2024 11:31 PM EDT 06/02/2024 11:31 PM EDT Nuha Rojo MD POINT OF CARE TEST ORDERABLES Performing Organization Address City/State/[facility] Co de Phone Number [facility] [place] [address] documented in this encounter Visit Diagnoses Diagnosis STEMI (ST elevation myocardial infarction)- Primary Acute myocardial infarction, unspecified site, episode of care unspecified ST elevation myocardial infarction (STEMI), unspecified artery Coronary artery disease involving [place] coronary artery of [place] heart without angina pectoris S/P CABG x 3 Postsurgical aortocoronary bypass status Acute on chronic heart failure with reduced ejection fraction (HFrEF, <= 40%) Coronary artery disease involving [place] coronary artery of [place] heart without angina pectoris Type 2 diabetes mellitus Type II or unspecified type diabetes mellitus without mention of complication, not stated as uncontrolled Cardiac resynchronization therapy defibrillator (DISEASE AND INSECT CONTROL BOSS-D) - [employer]onic Amplia Cardiomyopathy, ischemic Other specified forms of chronic ischemic heart disease documented in this encounter Admitting Diagnoses Diagnosis STEMI (ST elevation myocardial infarction) Acute myocardial infarction, unspecified site, episode of care unspecified documented in this encounter Administered Medications Inactive Administered Medications - up to 3 most recent administrations Medication Order MAR Action Action Date Dose Rate Site acetaminophen (Ofirmev) (1,000 mg/100 mL) infusion 1,000 mg 1,000 mg, Intravenous, at 400 mL/hr, Administer over 15 Minutes, EVERY 6 HOURS SCHEDULED, 4 doses, First dose on Fri06/14/24 at 1800, Last dose on Fri06/15/24 at 1200, - Maximum dose of acetaminophen is 4,000 mg from all sources in 24 hours. - Unless otherwise specified, when ordered PRN for pain, acetaminophen should be given first if other PRN pain medications are ordered., Routine, Is ketorolac (Toradol) IV contraindicated? Yes, Can this patient tolerate oral medications or suppositories? No Given 06/15/2024 11:17 AM EST 1,000 mg 400 mL/hr Given 06/15/2024 5:01 AM EST 1,000 mg 400 mL/hr Given 06/14/2024 11:29 PM EST 1,000 mg 400 mL/hr acetaminophen (Tylenol) tablet 975 mg 975 mg, Oral, EVERY 6 HOURS SCHEDULED, First dose on Fri06/15/24 at 1800, Until Discontinued, For pain when taking by mouth. Maximum dose of acetaminophen is 4,000 mg from all sources in 24 hours. When ordered for pain, acetaminophen should be given even when other ordered pain medications are indicated., Routine Given 06/21/2024 12:03 PM EST 975 mg Given 06/21/2024 6:05 AM EST 975 mg Given 06/21/2024 12:02 AM EST 975 mg albumin (human) 5% 250 mL intravenous solution 12.5 g, Intravenous, EVERY 15 MIN PRN, 2 doses, Starting on Fri06/14/24 at 1436, Until Fri06/15/24 at 1259, Other, As needed for volume replacement to maintain cardiac index greater than or equal to 2.0 L/min/M2, 1 bottle (unit) = 12.5 grams / 250 mL (Total Dose = 25 grams = 2 bottles), STAT New Bag 06/15/2024 12:19 AM EST 12.5 g albumin (human) 5% 250 mL intravenous solution 12.5 g, Intravenous, EVERY 30 MIN, 1 dose, First dose on Fri06/16/24 at 1100, 1 bottle (unit) = 12.5 grams / 250 mL (Total Dose = 12.5 grams = 1 bottle), Routine New Bag 06/16/2024 10:50 AM EST 12.5 g aspirin chewable tablet 81 mg 81 mg, Oral, DAILY, First dose on Fri06/03/24 at 0900, Until Discontinued, Routine Given 06/13/2024 8:11 AM EST 81 mg Given 06/12/2024 9:10 AM EST 81 mg Given 06/11/2024 8:55 AM EST 81 mg aspirin chewable tablet 81 mg 81 mg, Oral, DAILY, First dose on Fri06/14/24 at 1500, Until Discontinued, Routine Given 06/21/2024 8:37 AM EST 81 mg Given 06/20/2024 8:12 AM EST 81 mg Given 06/19/2024 8:23 AM EST 81 mg aspirin suppository 300 mg 300 mg, Rectal, DAILY, First dose on Fri06/14/24 at 1500, Until Discontinued, Start on Post-Op Day 0, please give within 6 hours upon arrival to Unit. Give ND if unable to take PO, Routine Given 06/14/2024 3:10 PM EST 300 mg atorvastatin (Lipitor) tablet 80 mg 80 mg, Oral, EVERY EVENING, First dose on [facility] 06/03/24 at 0130, Until Discontinued, Routine Given 06/20/2024 5:4 4 PM EST 80 mg Given 06/19/2024 5:54 PM EST 80 mg Given 06/18/2024 6:15 PM EST 80 mg carvediloL (Coreg) tablet 12.5 mg 12.5 mg, Oral, 2 TIMES DAILY WITH MEALS, First dose (after last modification) on Fri06/18/24 at 0800, Until Discontinued, Routine Given 06/21/2024 8:37 AM EST 12.5 mg Given 06/20/2024 5:44 PM EST 12.5 mg Given 06/20/2024 8:12 AM EST 12.5 mg carvediloL (Coreg) tablet 6.25 mg 6.25 mg, Oral, 2 TIMES DAILY, First dose on [facility] 06/03/24 at 0900, Until Discontinued, Routine Given 06/13/2024 8:59 PM EST 6.25 mg Given 06/13/2024 8:11 AM EST 6.25 mg Given 06/12/2024 9:03 PM EST 6.25 mg carvediloL (Coreg) tablet 6.25 mg 6.25 mg, Oral, 2 TIMES DAILY WITH MEALS, First dose (after last modification) on Miguelina 06/17/24 at 0900, Until Discontinued, Routine Given 06/17/2024 4:01 PM EST 6.25 mg Given 06/17/2024 8:44 AM EST 6.25 mg chlorhexidine (Peridex) 0.12 % solution Q-Care Kit 15 mL, Oral, 2 TIMES DAILY, First dose on Fri06/14/24 at 2100, Until Discontinued, [place] teeth and / or gums. Scan the CHG vial in the [employer] Q-Care Oral Care Kit from floor stock. Ventilator-associated pneumonia prophylaxis For use in ICU/Critical care locations ONLY. Obtain kit from Floor Stock location. Scan CHG vial in the [employer] Q-Care Oral Care Kit, Routine Given 06/14/2024 10:02 PM EST 15 mLs clopidogreL (Plavix) tablet 75 mg 75 mg, Oral, DAILY, First dose on Fri06/15/24 at 0900, Until Discontinued, Routine Given 06/21/2024 8:37 AM EST 75 mg Given 06/20/2024 8:12 AM EST 75 mg Given 06/19/2024 8:23 AM EST 75 mg dexmedeTOMIDine (Precedex) (4 mcg/mL) in sodium chloride 0.9% 100 mL infusion 0-1.7 mcg/kg/hr ? 76 kg Adjusted weight (0-32.3 mL/hr), Intravenous, CONTINUOUS, Starting on Fri06/14/24 at 1500, Until Fri06/15/24 at 0749, Titrate to sedation level of RASS Goal (-1) to 0. Start at 0.4 mcg/kg/hr. Increase/decrease by 0.4 mcg/kg/hr every 15 minutes until goal reached. Once stable, reassess patient every 30 minutes. Do not exceed 1.7 mcg/kg/hr. Change rate only after assessing and documenting RASS. Reassess sedation scores within 30 minutes after every rate change. If under sedated, increase rate by 0.4 mcg/kg/hr. If over sedated, hold sedative until target RASS (-1) to 0 achieved and then restart at 50% of previous rate. Call enginehouse brakeman if goal not achieved at maximum rate. If SAT is ordered and if patient meets criteria for Spontaneous Awakening Trial, titrate per protocol., Routine, Please indicate the name & specialty of the Attending Provider who authorized the use of this medication: me Rate/Dose Change 06/14/2024 9:00 PM EST 0.4 mcg/kg/hr 7.6 mL/hr Rate/Dose Verify 06/14/2024 8:00 PM EST 0.8 mcg/kg/hr 15.2 mL/hr Rate/Dose Verify 06/14/2024 7:00 PM EST 0.8 mcg/kg/hr 15.2 mL/hr dextrose 50% intravenous solution 25 g 25 g, Intravenous, EVERY 15 MIN PRN, Starting on Fri06/15/24 at 1532, Until Fri06/21/24 at 1534, Low blood sugar, ??Oral treatment preferred For Blood Glucose 50 to 70 mg/dL: ?? -??IF ABLE TO DRINK, give 120 mL juice or regular (not diet) soda - IF NPO, give 15 gram glucose 40% oral gel massaged into buccal mucosa - IF UNCONSCIOUS OR UNCOOPERATIVE, give 25 gram dextrose IV - IF NO IV ACCESS, give 1 mg glucagon IM. For Blood Glucose LESS than 50 mg/dL: ?? -??IF ABLE TO DRINK, give 240 mL juice or regular (not diet) soda - IF NPO, give 30 gram glucose 40% oral gel massaged into buccal mucosa - IF UNCONSCIOUS OR UNCOOPERATIVE, give 25 gram dextrose IV - IF NO IV ACCESS, 1 mg glucagon IM. Recheck BG in 15 minutes. May repeat juice/soda, gel, dextrose or glucagon once per episode. Notify provider if hypoglycemia does not resolve after two treatments. Providers should consider the following: administering longer-acting treatments for the duration of active insulin or hypoglycemia agent for persistent hypoglycemia and re-evaluating active insulin orders before administering the next dose. Warning Vesicant/Irritant Medication , Routine DOBUTamine (Dobutrex) (4,000 mcg/mL) in dextrose 5% 250 mL infusion 1 mcg/kg/min ? 94.2 kg (1.413 mL/hr, rounded to 1.4 mL/hr), Intravenous, CONTINUOUS, Starting on Fri06/14/24 at 1500, Until Fri06/15/24 at 0749, All adjustments must be ordered by the prescriber. Do not exceed 20 mcg/kg/minute. Warning Vesicant/Irritant Medication Concentration 4000 mcg/mL. Warning Vesicant/Irritant Medication Rate/Dose Change 06/15/2024 6:17 AM EST 1 mcg/kg/min 1.4 mL/hr Rate/Dose Verify 06/15/2024 6:00 AM EST 1 mcg/kg/min 1.4 m L/hr Rate/Dose Change 06/15/2024 5:56 AM EST 1 mcg/kg/min 1.4 m L/hr empagliflozin (Jardiance) tablet 25 mg 25 mg, Oral, DAILY, First dose on Fri06/18/24 at 1030, Until Discontinued, This medication should not be given with reduced PO intake/fluid loss, severe illness, or in patients with ketonemia or ketouria., Routine, This medication should be held for 3 days prior to surgery. Is there a planned procedure within 3 days? No, Indication for empagliflozin: heart failure (HFpEF or HFrEF), Is this a new initiation for patients with heart failure (HFpEF or HFrEF) with or without diabetes? No Given 06/21/2024 8:37 AM EST 25 mg Given 06/20/2024 8:12 AM EST 25 mg Given 06/19/2024 8:24 AM EST 25 mg erythromycin (Romycin) 5 mg/gram (0.5 %) ophthalmic ointment Right Eye, 4 TIMES DAILY, First dose on Fri06/08/24 at 1330, Until Discontinued, Use ~1 cm ribbon Given 06/21/2024 8:41 AM EST Given 06/20/2024 8:42 PM EST Given 06/20/2024 5:50 PM EST escitalopram (Lexapro) tablet 20 mg 20 mg, Oral, DAILY, First dose on Fri06/03/24 at 0900, Until Discontinued, Routine Given 06/21/2024 8:38 AM EST 20 mg Given 06/20/2024 8:12 AM EST 20 mg Given 06/19/2024 8:24 AM EST 20 mg fentaNYL (50 mcg/mL) bolus from infusion 25 mcg 25 mcg, Intravenous, EVERY 10 MIN PRN, Starting on Fri06/14/24 at 1436, Until Fri06/15/24 at 0749, Pain, For breakthrough pain (pain scale greater than 3), while intubated, For breakthrough pain (pain scale greater than 3), while intubated. Maximum dose 300 mcg over one hour, Routine Bolus from Infusion 06/14/2024 4:17 PM EST 50 mcg fentaNYL (50 mcg/mL) bolus from infusion 25 mcg 25 mcg, Intravenous, EVERY 1 HOUR PRN, Starting on Fri06/14/24 at 1436, Until Fri06/15/24 at 0749, Pain, For breakthrough pain (pain scale greater than 3), while extubated, For breakthrough pain (pain scale greater than 3), while extubated. Maximum dose 300 mcg over one hour, Routine Bolus from Infusion 06/15/2024 2:47 AM EST 25 mcg fentaNYL (PF) (50 mcg/mL) infusion syringe 50 mL 0-100 mcg/hr (0-2 mL/hr), Intravenous, CONTINUOUS, Starting on Fri06/14/24 at 1530, Until Fri06/15/24 at 0749, Titrate to patient comfort, pain scale 1-3. Start at 25 mcg/hr. Increase/decrease by 25 mcg/hr every 15 minutes. Do not exceed 100 mcg/hour., Routine Rate/Dose Verify 06/15/2024 6:00 AM EST 25 mcg/hr 0.5 mL/hr Rate/Dose Verify 06/15/2024 5:00 AM EST 25 mcg/hr 0.5 mL/ hr Rate/Dose Verify 06/15/2024 4:00 AM EST 25 mcg/hr 0.5 mL/ hr furosemide (Lasix) (10 mg/mL) injection 40 mg 40 mg, Intravenous, ONCE, 1 dose, On Miguelina 06/03/24 at 0100, Cath (Intra-Procedure), Routine Given 06/03/2024 12:31 AM EDT 40 mg furosemide (Lasix) (10 mg/mL) injection 40 mg 40 mg, Intravenous, 2 TIMES DAILY, 4 doses, First dose (after last modification) on Miguelina 06/03/24 at 1000, Last dose on Fri06/04/24 at 1600, Routine Given 06/04/2024 5:00 PM EDT 40 mg Given 06/04/2024 11:24 AM EDT 40 mg Given 06/03/2024 5:41 PM EDT 40 mg furosemide (Lasix) (10 mg/mL) injection 40 mg 40 mg, Intravenous, DAILY, First dose on 06/05/24 at 1230, Until Discontinued Given 06/13/2024 8:13 AM EST 40 mg Given 06/12/2024 9:09 AM EST 40 mg Given 06/11/2024 8:55 AM EST 40 mg furosemide (Lasix) (10 mg/mL) injection 40 mg 40 mg, Intravenous, 2 TIMES DAILY, First dose on Miguelina 06/17/24 at 0900, Until Discontinued Given 06/20/2024 8:13 AM EST 40 mg Given 06/19/2024 5:55 PM EST 40 mg Given 06/19/2024 8:32 AM EST 40 mg furosemide (Lasix) tablet 60 mg 60 mg, Oral, DAILY, First dose on 06/20/24 at 1000, Until Discontinued, Routine Given 06/21/2024 8:37 AM EST 60 mg Given 06/20/2024 9:45 AM EST 60 mg gadoterate meglumine (Dotarem) (0.5 mMol/mL) injection solution 0-100 mL 0-100 mL, Intravenous, ONCE PRN, 1 dose, Starting on Fri06/07/24 at 1154, Until Fri06/07/24 at 1230, Per Protocol, Radiology Contrast, Routine Given 06/07/2024 12:30 PM EST 38 mLs glucagon (Glucagen) (1 mg/mL) injection solution 1 mg 1 mg, Intramuscular, EVERY 15 MIN PRN, Starting on Fri06/15/24 at 1532, Until Fri06/21/24 at 1534, Low blood sugar, ??Oral treatment preferred For Blood Glucose 50 to 70 mg/dL: ?? -??IF ABLE TO DRINK, give 120 mL juice or regular (not diet) soda - IF NPO, give 15 gram glucose 40% oral gel massaged into buccal mucosa - IF UNCONSCIOUS OR UNCOOPERATIVE, give 25 gram dextrose IV - IF NO IV ACCESS, give 1 mg glucagon IM. For Blood Glucose LESS than 50 mg/dL: ?? -??IF ABLE TO DRINK, give 240 mL juice or regular (not diet) soda - IF NPO, give 30 gram glucose 40% oral gel massaged into buccal mucosa - IF UNCONSCIOUS OR UNCOOPERATIVE, give 25 gram dextrose IV - IF NO IV ACCESS, 1 mg glucagon IM. Recheck BG in 15 minutes. May repeat juice/soda, gel, dextrose or glucagon once per episode. Notify provider if hypoglycemia does not resolve after two treatments. Providers should consider the following: administering longer-acting treatments for the duration of active insulin or hypoglycemia agent for persistent hypoglycemia and re-evaluating active insulin orders before administering the next dose., Routine glucose (Glutose) 40% oral geL 15-30 g of glucose, Buccal, EVERY 15 MIN PRN, Starting on Fri06/15/24 at 1532, Until Fri06/21/24 at 1534, Low blood sugar, ??Oral treatment preferred For Blood Glucose 50 to 70 mg/dL: ?? -??IF ABLE TO DRINK, give 120 mL juice or regular (not diet) soda - IF NPO, give 15 gram glucose 40% oral gel massaged into buccal mucosa - IF UNCONSCIOUS OR UNCOOPERATIVE, give 25 gram dextrose IV - IF NO IV ACCESS, give 1 mg glucagon IM. For Blood Glucose LESS than 50 mg/dL: ?? -??IF ABLE TO DRINK, give 240 mL juice or regular (not diet) soda - IF NPO, give 30 gram glucose 40% oral gel massaged into buccal mucosa - IF UNCONSCIOUS OR UNCOOPERATIVE, give 25 gram dextrose IV - IF NO IV ACCESS, 1 mg glucagon IM. Recheck BG in 15 minutes. May repeat juice/soda, gel, dextrose or glucagon once per episode. Notify provider if hypoglycemia does not resolve after two treatments. Providers should consider the following: administering longer-acting treatments for the duration of active insulin or hypoglycemia agent for persistent hypoglycemia and re-evaluating active insulin orders before administering the next dose. 1 tube of Glutose-15 contains 15 grams of glucose (net weight of tube = 37.5 grams.), Routine guaiFENesin ER (Mucinex) tablet 600 mg 600 mg, Oral, EVERY 12 HOURS, First dose on Fri06/20/24 at 1800, Until Discontinued, DO NOT CRUSH OR OPEN, Routine Given 06/21/2024 6:05 AM EST 600 mg Given 06/20/2024 5:44 PM EST 600 mg heparin (pf) (porcine) (2 units/mL) in sodium chloride 0.9% infusion (for [facility], [place], OR use only) 3-5 mL/hr, Intravenous, CONTINUOUS, Starting on Fri06/13/24 at 1015, Until Fri06/15/24 at 0749, Flush #1 at 300 mmHg to central lumen transducer. Change tubing and bag every 72 hours. NOTE CONCENTRATION of 2 units per mL, Routine Rate/Dose Verify 06/13/2024 6:00 PM EST 5 mL/hr 5 mL/hr Rate/Dose Verify 06/13/2024 12:00 PM EST 5 mL/hr 5 mL/h r Continued Bag 06/13/2024 10:15 AM EST 5 mL/hr 5 mL/hr heparin (porcine) (1,000 units/mL) injection 0-4,000 Units 0-4,000 Units, Intravenous, BOLUS PER HEPARIN PROTOCOL, Starting on Miguelina 06/03/24 at 0053, Until 06/14/24 at 1437, Per Protocol, START ADJUSTMENT SCHEDULE 6 HOURS AFTER STARTING INFUSION Bolus doses are rounded to the nearest 100 units. If Heparin UFH Level is: - Less than 0.1 international unit/mL: Bolus 60 units/kg (Maximum of 4,000 units) = Bolus 4,000 units - 0.1 - 0.19 International unit/mL: Bolus 30 units/kg (Maximum of 2,000 units) = Bolus 2,000 units - Equal to or greater than 0.2 international unit/mL: No Bolus, Routine Given 06/03/2024 3:16 PM EDT 2,000 Units heparin (porcine) 50 units/mL in dextrose 5% 500 mL infusion 0-5,000 Units/hr (0-100 mL/hr), Intravenous, CONTINUOUS, Starting on [place] 06/03/24 at 0115, Until 06/14/24 at 1437, Begin infusion at 1,000 units per hr (12 units/kg/hr). Maximum initial infusion rate is 1,000 units/hr. Infusion doses are rounded to the nearest 50 units. Target Heparin UFH Level (anti-Xa activity) = 0.3 - 0.7 international unit/mL Start adjustment schedule 6 hours after starting infusion. If Heparin UFH Level is: - Less than 0.1 international unit/mL: Administer PRN bolus and increase rate by 400 units per hr (4 units/kg/hr) - 0.1 - 0.19 international unit/mL: Administer PRN bolus and increase rate by 200 units per hr (2 units/kg/hr) - 0.2 - 0.29 international unit/mL: NO BOLUS and increase rate by 200 units per hr (2 units/kg/hr) - 0.3 - 0.7 international unit/mL: No change - 0.71 - 0.79 international unit/mL: NO BOLUS and decrease rate by 100 units per hr (1 units/kg/hr) - 0.8 - 0.99 international unit/mL: NO BOLUS and decrease rate by 200 units per hr (2 units/kg/hr) - Greater than or equal to 1.00 international unit/mL: Hold infusion for 60 minutes then decrease rate by 300 units per hour (3 units/kg/hr) Obtain Heparin UFH Level 6 hours after initiating heparin. Then 6 hours after each dose adjustment. When 2 consecutive Heparin UFH Level within target range of 0.3 - 0.7 international unit/mL, change Heparin UFH Level to once every 24 hours with A.M. labs while on heparin. RN to order required Heparin UFH Level - Per Protocol, Routine Rate/Dose Change 06/14/2024 1:48 AM EST 1,000 Units/hr 20 mL/hr Rate/Dose Verify 06/13/2024 6:00 PM EST 1,300 Units/hr 26 mL/hr Rate/Dose Change 06/13/2024 4:42 PM EST 1,300 Units/hr 26 mL/hr HYDROmorphone (Dilaudid) (1 mg/mL) injection syringe 0.4 mg 0.4 mg, Intravenous, EVERY 4 HOURS PRN, Starting on Fri06/15/24 at 2221, Until [place] 06/17/24 at 0829, Pain, for breakthrough pain not controlled with po oxy, Routine Given 06/17/2024 3:18 AM EST 0.4 mg Given 06/16/2024 10:38 PM EST 0.4 mg Given 06/15/2024 10:31 PM EST 0.4 mg HYDROmorphone (Dilaudid) tablet 2 mg 2 mg, Oral, EVERY 4 HOURS PRN, Starting on Fri06/14/24 at 1436, Until Fri06/15/24 at 1532, Pain, moderate pain (4-6), For adults, may give in place of other agent(s) ordered for pain (7-10) at patient request. If multiple routes of administration ordered, oral route first line., Routine Given 06/15/2024 3:24 PM EST 2 mg Given 06/15/2024 4:08 AM EST 2 mg HYDROmorphone (Dilaudid) tablet 2 mg 2 mg, Oral, EVERY 4 HOURS PRN, Starting on Fri06/14/24 at 1436, Until Fri06/15/24 at 1532, Pain, Breakthrough pain rescue dose, For moderate or severe pain (4-10) unrelieved at least 60 minutes after initial PRN dose was administered. Max 3 doses/24 hours. If pain still unrelieved after 3rd rescue dose within 24 hours, contact provider. If multiple routes of administration ordered, oral route first line., Routine Given 06/15/2024 11:16 AM EST 2 mg Given 06/15/2024 5:08 AM EST 2 mg HYDROmorphone (Dilaudid) tablet 2 mg 2 mg, Oral, EVERY 3 HOURS PRN, Starting on Fri06/15/24 at 1532, Until Fri06/15/24 at 2222, Pain, Breakthrough pain rescue dose, For moderate or severe pain (4-10) unrelieved at least 60 minutes after initial PRN dose was administered. Max 3 doses/24 hours. If pain still unrelieved after 3rd rescue dose within 24 hours, contact provider. If multiple routes of administration ordered, oral route first line., Routine Given 06/15/2024 6:26 PM EST 2 mg HYDROmorphone (Dilaudid) tablet 4 mg 4 mg, Oral, EVERY 4 HOURS PRN, Starting on Fri06/14/24 at 1436, Until Fri06/15/24 at 1532, Pain, severe pain (7-10), If multiple routes of administration ordered, oral route first line., Routine Given 06/15/2024 1:41 PM EST 4 mg Given 06/15/2024 8:53 AM EST 4 mg HYDROmorphone (Dilaudid) tablet 4 mg 4 mg, Oral, ONCE, 1 dose, On Fri06/15/24 at 0745, Routine Given 06/15/2024 7:31 AM EST 4 mg HYDROmorphone (Dilaudid) tablet 4 mg 4 mg, Oral, EVERY 3 HOURS PRN, Starting on Fri06/15/24 at 1532, Until Fri06/15/24 at 2222, Pain, severe pain (7-10), If multiple routes of administration ordered, oral route first line., Routine Given 06/15/2024 8:28 PM EST 4 mg Given 06/15/2024 4:48 PM EST 4 mg insulin glargine-ygfn (Semglee) (100 unit/mL) subcutaneous injection vial 13 Units 13 Units, Subcutaneous, ONCE, 1 dose, On 06/06/24 at 1645, STAT Given 06/06/2024 4:56 PM EST 13 Units insulin glargine-ygfn (Semglee) (100 unit/mL) subcutaneous injection vial 20 Units 20 Units (rounded from 20.4 Units = 0.2 Units/kg/day ? 102 kg), Subcutaneous, DAILY, First dose on [place] 06/03/24 at 0900, Until Discontinued, Routine Given 06/06/2024 8:57 AM EST 20 Units Given 06/05/2024 8:46 AM EDT 20 Units Given 06/04/2024 8:31 AM EDT 20 Units insulin glargine-ygfn (Semglee) (100 unit/mL) subcutaneous injection vial 30 Units 30 Units, Subcutaneous, DAILY, First dose (after last modification) on Fri06/21/24 at 0900, Until Discontinued, Routine Given 06/21/2024 8:41 AM EST 30 Unit s insulin glargine-ygfn (Semglee) (100 unit/mL) subcutaneous injection vial 33 Units 33 Units, Subcutaneous, DAILY, First dose (after last modification) on Fri06/07/24 at 0900, Until Discontinued, Routine Given 06/07/2024 8:52 AM EST 33 Units insulin glargine-ygfn (Semglee) (100 unit/mL) subcutaneous injection vial 35 Units 35 Units, Subcutaneous, DAILY, First dose (after last modification) on Fri06/08/24 at 0900, Until Discontinued, Routine Given 06/09/2024 8:17 AM EST 35 Units Given 06/08/2024 8:50 AM EST 35 Units insulin glargine-ygfn (Semglee) (100 unit/mL) subcutaneous injection vial 35 Units 35 Units, Subcutaneous, DAILY, First dose (after last modification) on Fri06/20/24 at 0900, Until Discontinued, Routine Given 06/20/2024 8:22 AM EST 35 Unit s insulin glargine-ygfn (Semglee) (100 unit/mL) subcutaneous injection vial 37 Units 37 Units, Subcutaneous, DAILY, First dose (after last modification) on [place] 06/10/24 at 0900, Until Discontinued, Routine Given 06/11/2024 8:12 AM EST 37 Units Given 06/10/2024 8:31 AM EST 37 Units insulin glargine-ygfn (Semglee) (100 unit/mL) subcutaneous injection vial 40 Units 40 Units, Subcutaneous, DAILY, First dose (after last modification) on 06/12/24 at 0900, Until Discontinued, Routine Given 06/13/2024 8:13 AM EST 40 Units Given 06/12/2024 9:10 AM EST 40 Units insulin glargine-ygfn (Semglee) (100 unit/mL) subcutaneous injection vial 45 Units 45 Units, Subcutaneous, DAILY, First dose on e 06/15/24 at 1245, Until Discontinued, STAT Given 06/15/2024 1:23 PM EST 45 Units insulin glargine-ygfn (Semglee) (100 unit/mL) subcutaneous injection vial 45 Units 45 Units, Subcutaneous, DAILY, First dose (after last modification) on Fri06/16/24 at 0900, Until Discontinued, Routine Given 06/16/2024 9:06 AM EST 45 Unit s insulin glargine-ygfn (Semglee) (100 unit/mL) subcutaneous injection vial 45 Units 45 Units, Subcutaneous, DAILY, First dose (after last modification) on 06/19/24 at 0900, Until Discontinued, Routine Given 06/19/2024 8:21 AM EST 45 Unit s insulin glargine-ygfn (Semglee) (100 unit/mL) subcutaneous injection vial 50 Units 50 Units, Subcutaneous, DAILY, First dose (after last modification) on [place] 06/17/24 at 0900, Until Discontinued, Routine Given 06/18/2024 8:48 AM EST 50 Unit s Given 06/17/2024 8:45 AM EST 50 Units insulin lispro (HumaLOG;Admelog) (100 unit/mL) subcutaneous injection vial 0-10 Units 0-10 Units, Subcutaneous, 3 TIMES DAILY WITH MEALS, First dose (after last modification) on Fri06/06/24 at 1730, Until Discontinued, [employer] Give 1 unit for every 7 grams carbohydrate. Hold if not eating or if BG less than 70 mg/dL. , Routine Given 06/09/2024 12:00 PM EST 6.5 Units Given 06/09/2024 8:22 AM EST 4 Units Given 06/08/2024 5:56 PM EST 10 Units insulin lispro (HumaLOG;Admelog) (100 unit/mL) subcutaneous injection vial 0-12 Units 0-12 Units, Subcutaneous, 3 TIMES DAILY WITH MEALS, First dose (after last modification) on Fri06/09/24 at 1700, Until Discontinued, [employer] Give 1 unit for every 6 grams carbohydrate. Hold if not eating or if BG less than 70 mg/dL. , Routine Given 06/09/2024 5:43 PM EST 7.5 Units insulin lispro (HumaLOG;Admelog) (100 unit/mL) subcutaneous injection vial 0-13 Units 0-13 Units, Subcutaneous, 3 TIMES DAILY WITH MEALS, First dose on Fri06/15/24 at 1245, Until Discontinued, [employer] Give 1 unit: 6 grams of carbohydrate Hold if not eating or if BG less than 70 mg/dL., Routine Given 06/16/2024 1:00 PM EST 6 Units Given 06/16/2024 9:05 AM EST 2 Units Given 06/15/2024 5:55 PM EST 8 Units insulin lispro (HumaLOG;Admelog) (100 unit/mL) subcutaneous injection vial 0-15 Units 0-15 Units, Subcutaneous, 3 TIMES DAILY WITH MEALS, First dose (after last modification) on Fri06/10/24 at 0800, Until Discontinued, [employer] Give 1 unit for every 6 grams carbohydrate. Hold if not eating or if BG less than 70 mg/dL. , Routine Given 06/13/2024 5:52 PM EST 7 Units Given 06/13/2024 12:56 PM EST 9 Units Given 06/12/2024 5:52 PM EST 7 Units insulin lispro (HumaLOG;Admelog) (100 unit/mL) subcutaneous injection vial 0-15 Units 0-15 Units, Subcutaneous, 3 TIMES DAILY WITH MEALS, First dose (after last modification) on 06/19/24 at 0800, Until Discontinued, [employer] Give 1 unit: 5 grams of carbohydrate Hold if not eating or if BG less than 70 mg/dL., Routine Given 06/20/2024 5:47 PM EST 7 Units Given 06/20/2024 12:50 PM EST 7 Units Given 06/20/2024 8:25 AM EST 9 Units insulin lispro (HumaLOG;Admelog) (100 unit/mL) subcutaneous injection vial 0-20 Units 0-20 Units, Subcutaneous, 3 TIMES DAILY WITH MEALS, First dose (after last modification) on [facility] 06/17/24 at 0800, Until Discontinued, [employer] Give 1 unit: 4 grams of carbohydrate Hold if not eating or if BG less than 70 mg/dL., Routine Given 06/17/2024 1:25 PM EST 6 Units Given 06/17/2024 8:45 AM EST 7 Units insulin lispro (HumaLOG;Admelog) (100 unit/mL) subcutaneous injection vial 0-25 Units 0-25 Units, Subcutaneous, 3 TIMES DAILY WITH MEALS, First dose (after last modification) on [facility] 06/17/24 at 1700, Until Discontinued, [employer] Give 1 unit: 3 grams of carbohydrate Hold if not eating or if BG less than 70 mg/dL., Routine Given 06/18/2024 6:22 PM EST 12 Units Given 06/18/2024 1:06 PM EST 12 Units Given 06/18/2024 8:49 AM EST 16 Units insulin lispro (HumaLOG;Admelog) (100 unit/mL) subcutaneous injection vial 0-8 Units 0-8 Units, Subcutaneous, 3 TIMES DAILY WITH MEALS, First dose on [place] 06/06/24 at 1200, Until Discontinued, [employer] Give 1 unit for every 10 grams carbohydrate. Hold if not eating or if BG less than 70 mg/dL. , Routine Given 06/06/2024 12:25 PM EST 4 Units insulin lispro (HumaLOG;Admelog) (100 unit/mL) subcutaneous injection vial 1-10 Units 1-10 Units, Subcutaneous, EVERY 4 HOURS SCHEDULED, First dose (after last modification) on [facility] 06/19/24 at 0800, Until Discontinued, CORRECTION BOLUS [1-10 Units] Correction Factor 15 (1 unit of insulin is expected to drop the glucose 15 mg/dL) BG 140 - 155 Give 1 units BG 156 - 170 Give 2 units BG 171 - 185 Give 3 units BG 186 - 200 Give 4 units BG 201 - 215 Give 5 units BG 216 - 230 Give 6 units BG 231 - 245 Give 8 units BG greater than 245, give 10 units and recheck BG in 2 hours. If BG remains greater than 245, 10 units (no more than TWO times) & call for new basal insulin orders. If less than 245 after two hours, give no insulin and resume prior schedule. DO NOT hold if NPO, unless specifically directed to do so by written order. Per Blood Glucose Monitoring Policy, re-check a BG of > 240 mg/dL in 2 hours. , Routine Given 06/20/2024 12:06 PM EST 3 Units insulin lispro (HumaLOG;Admelog) (100 unit/mL) subcutaneous injection vial 1-6 Units 1-6 Units, Subcutaneous, 3 TIMES DAILY BEFORE MEALS, First dose on [place] 06/03/24 at 0730, Until Discontinued, CORRECTION BOLUS [1-6 Units] Moderate Sliding Scale (BG in mg/dL): Correction factor 20 (1 unit of insulin is expected to drop the glucose 20 mg/dL) BG 140 - 160 Give 1 unit BG 161 - 180 Give 2 units BG 181 - 200 Give 3 units BG 201 - 220 Give 4 units BG 221 - 240 Give 5 units BG greater than 240, give 6 units and recheck BG in 2 hours. - If recheck BG is LESS than 240, give no insulin and resume schedule. - If recheck BG is GREATER than or EQUAL to 240, give 6 units and repeat BG in 2 hours & call for new insulin orders. DO NOT hold if NPO, unless specifically told to do so. ?? Per Inpatient Subcutaneous Insulin Policy, recheck a BG of greater than 240 mg/dL in 2 hours., Routine Given 06/06/2024 4:55 PM EST 1 Units Given 06/06/2024 1:42 PM EST 6 Units Given 06/06/2024 11:36 AM EST 6 Units insulin lispro (HumaLOG;Admelog) (100 unit/mL) subcutaneous injection vial 1-6 Units 1-6 Units, Subcutaneous, EVERY 4 HOURS SCHEDULED, First dose on 06/06/24 at 2000, Until Discontinued, CORRECTION BOLUS [1-6 Units] Moderate Sliding Scale (BG in mg/dL): Correction factor 20 (1 unit of insulin is expected to drop the glucose 20 mg/dL) BG 140 - 160 Give 1 unit BG 161 - 180 Give 2 units BG 181 - 200 Give 3 units BG 201 - 220 Give 4 units BG 221 - 240 Give 5 units BG greater than 240, give 6 units and recheck BG in 2 hours. - If recheck BG is LESS than 240, give no insulin and resume schedule. - If recheck BG is GREATER than or EQUAL to 240, give 6 units and repeat BG in 2 hours (no more than 3 times) & call for new insulin orders. DO NOT hold if NPO, unless specifically directed to do so by written order. ?? Per Inpatient Subcutaneous Insulin Policy, recheck a BG of greater than 240 mg/dL in 2 hours., Routine Given 06/13/2024 9:02 PM EST 4 Units Given 06/13/2024 4:50 PM EST 4 Units Given 06/13/2024 12:39 PM EST 2 Units insulin lispro (HumaLOG;Admelog) (100 unit/mL) subcutaneous injection vial 1-6 Units 1-6 Units, Subcutaneous, EVERY 4 HOURS SCHEDULED, First dose on Fri06/15/24 at 1600, Until Discontinued, CORRECTION BOLUS [1-6 Units] Moderate Sliding Scale (BG in mg/dL): Correction factor 20 (1 unit of insulin is expected to drop the glucose 20 mg/dL) BG 140 - 160 Give 1 unit BG 161 - 180 Give 2 units BG 181 - 200 Give 3 units BG 201 - 220 Give 4 units BG 221 - 240 Give 5 units BG greater than 240, give 6 units and recheck BG in 2 hours. - If recheck BG is LESS than 240, give no insulin and resume schedule. - If recheck BG is GREATER than or EQUAL to 240, give 6 units and repeat BG in 2 hours (no more than 3 times) & call for new insulin orders. DO NOT hold if NPO, unless specifically directed to do so by written order. ?? Per Inpatient Subcutaneous Insulin Policy, recheck a BG of greater than 240 mg/dL in 2 hours., Routine Given 06/15/2024 10:14 PM EST 6 Units Given 06/15/2024 7:54 PM EST 6 Units Given 06/15/2024 4:22 PM EST 3 Units insulin lispro (HumaLOG;Admelog) (100 unit/mL) subcutaneous injection vial 2-12 Units 2-12 Units, Subcutaneous, EVERY 4 HOURS SCHEDULED, First dose on Fri06/16/24 at 0000, Until Discontinued, CORRECTION BOLUS [2-12 Units] Resistant Sliding Scale (BG in mg/dL) Correction Factor 10 (1 unit of insulin is expected to drop the glucose 10 mg/dL) ?? BG 140 - 160 Give 2 units BG 161 - 180 Give 4 units BG 181 - 200 Give 6 units BG 201 - 220 Give 8 units BG 221 - 240 Give 10 units BG greater than 240, give 12 units and recheck BG in 2 hours. - If recheck BG is LESS than 240, give no insulin and resume schedule. - If recheck BG is GREATER than or EQUAL to 240, give 12 units and repeat BG in 2 hours (no more than 3 times) & call for new insulin orders. DO NOT hold if NPO, unless specifically directed to do so by written order. ?? Per Inpatient Subcutaneous Insulin Policy, recheck a BG of greater than 240 mg/dL in 2 hours, Routine Given 06/18/2024 8:30 PM ES T 4 Units Given 06/18/2024 6:21 PM EST 2 Units Given 06/18/2024 1:06 PM EST 4 Units insulin lispro (HumaLOG;Admelog) (100 unit/mL) subcutaneous injection vial 6 Units 6 Units, Subcutaneous, ONCE, 1 dose, On Fri06/15/24 at 2245, Routine Given 06/15/2024 10:31 PM EST 6 Units insulin regular (Myxredlin) (1 unit/mL) in sodium chloride 0.9% 100 mL infusion 0.5-16 Units/hr (0.5-16 mL/hr), Intravenous, CONTINUOUS, Starting on Fri06/14/24 at 1500, Until Fri06/15/24 at 1532, CHANGE BAG EVERY EVENING. Type 2 diabetes. Current blood glucose (BG) 140 - 179 Titration- aim for target range of 140 - 180 mg/dL. Check BG every hour unless otherwise indicated. [[ No initial bolus. Begin continuous infusion at 2 units/hour. ]] If BG at the time the infusion is started outside of the CURRENT BLOOD GLUCOSE range above, contact MD for new starting rate/bolus order. When infusion is paused, turn it back on as soon as possible per protocol. If BG at the time the infusion is started is outside of the CURRENT BLOOD GLUCOSE range above, contact provider for new starting rate/bolus order. Current BG less than 80 - Stop insulin. If BG less than 70, treat per hypoglycemia protocol. Re-check BG in 30 minutes and as soon as BG is greater than 80, restart with rate 50% of previous rate. If infusion stopped after previous rate had been 0.5 unit/hour, recheck every hour and when BG greater than 100 and higher than last test restart at 0.5 unit/hour. IF INFUSION IS PAUSED, TURN IT BACK ON SOON POSSIBLE, PER PROTOCOL. Current BG 80 - 139 - If BG dropped 10 mg/dL or more since last test, decrease rate by 50% and re-check in 30 minutes. Otherwise, decrease rate by 0.5 units/hour. Current BG 140 - 180 - If BG dropped 50 mg/dL or more since last test, decrease rate by 1 unit/hour. Otherwise, maintain same rate. Current BG 181 - 220 - If BG is lower than last test, maintain same rate. Otherwise, increase rate by 0.5 units/hour. Current BG 221 - 250 - If BG dropped 30 mg/dL or more since last test, maintain same rate. Otherwise, increase rate by 1 unit/hour. Current BG greater than 250 - Increase rate by 1 unit/hour AND bolus with Regular insulin IV as per IV Bolus Scale. Re-check BG in 30 minutes. THE FIRST DOSE OF SC INSULIN OUGHT TO BE ADMINISTERED BEFORE DISCONTINUING THE INFUSION. AN OVERLAP OF 2-3 HOURS IS RECOMMENDED. Continue to monitor the BG hourly., Routine Rate/Dose Verify 06/15/2024 2:00 PM EST 1.5 Units/hr 1.5 mL/hr Rate/Dose Change 06/15/2024 1:32 PM EST 1.5 Units/hr 1.5 m L/hr Rate/Dose Verify 06/15/2024 12:00 PM EST 2.5 Units/hr 2.5 mL/hr ipratropium-albuteroL (Duoneb) 0.5 mg-3 mg(2.5 mg base)/3 mL nebulizer solution 3 mL 3 mL, Nebulization, EVERY 4 HOURS PRN, Starting on Fri06/15/24 at 0858, Until Fri06/21/24 at 1534, Wheezing, Routine Given 06/17/2024 11:23 PM EST 3 mLs Given 06/17/2024 6:20 PM EST 3 mLs Given 06/17/2024 11:00 AM EST 3 mLs lidocaine (Lidoderm) 5% patch 1 patch 1 patch, Transdermal, Administer over 12 Hours, EVERY 24 HOURS, First dose on Fri06/15/24 at 0830, Until Discontinued, Apply patch(es) for 12 hours, and then remove for 12 hours., Routine Patch Applied 06/21/2024 8:43 AM EST 1 patch 11- Chest (Left) Patch Applied 06/20/2024 8:20 AM EST 1 patch 11- Chest (Left) Patch Applied 06/19/2024 8:21 PM EST 1 patch 11- Chest (Left) LORazepam (Ativan) (2 mg/mL) injection 1 mg 1 mg, Intravenous, ONCE, 1 dose, On Fri06/13/24 at 2100, Routine Given 06/13/2024 8:59 PM EST 1 mg magnesium hydroxide (Milk of Magnesia) (80mg/mL) oral liquid 2,400 mg 2,400 mg (30 mL), Oral, DAILY, First dose on Fri06/16/24 at 0900, Until Discontinued, Post-op day 2. Do not use with renal insufficiency., Routine Given 06/20/2024 8:12 AM EST 2,400 mg Given 06/18/2024 8:44 AM EST 2,400 mg Given 06/17/2024 8:46 AM EST 2,400 mg metoprolol tartrate (Lopressor) tablet 12.5 mg 12.5 mg, Oral, EVERY 12 HOURS SCHEDULED (2 times per day), First dose on Fri06/15/24 at 1115, Until Discontinued, Routine Given 06/16/2024 8:05 PM EST 12.5 mg Given 06/16/2024 9:00 AM EST 12.5 mg Given 06/15/2024 8:29 PM EST 12.5 mg mupirocin (Bactroban) 2 % ointment 1 each 1 each, Topical (Top), 2 TIMES DAILY, First dose on Fri06/13/24 at 1045, Until Discontinued, Apply a small amount to each nostril twice daily. Given 06/13/2024 9:04 PM EST 1 each niCARdipine (Cardene) (0.2 mg/mL) in sodium chloride 200 mL infusion 0-15 mg/hr (0-75 mL/hr), Intravenous, CONTINUOUS, Starting on Fri06/14/24 at 1500, Until Fri06/15/24 at 1259, Initiate if nitroGLYcerin ineffective at maintaining target mean BP. Titrate to MAP greater than 60 and less than 100 mmHg. Start at 5 mg/hr. Increase/decrease by 2.5 mg/hr every 5 minutes until goal reached. Do not exceed 15 mg/hr. Rotate IV site every 12 hours., Routine Rate/Dose Verify 06/14/2024 8:00 PM EST 2.5 mg/hr 12.5 mL/hr Rate/Dose Verify 06/14/2024 7:00 PM EST 2.5 mg/hr 12.5 mL /hr Rate/Dose Change 06/14/2024 6:05 PM EST 2.5 mg/hr 12.5 mL /hr oxyCODONE (Roxicodone) tablet 10 mg 10 mg, Oral, EVERY 4 HOURS PRN, Starting on Fri06/15/24 at 2218, Until Fri06/16/24 at 1815, Pain, moderate pain (4-6), For adults, may give in place of other agent(s) ordered for pain (7-10) at patient request. If multiple routes of administration ordered, oral route first line., Routine Given 06/16/2024 4:15 PM EST 10 mg Given 06/15/2024 11:20 PM EST 10 mg oxyCODONE (Roxicodone) tablet 10 mg 10 mg, Oral, EVERY 4 HOURS PRN, Starting on Fri06/16/24 at 1814, Until Fri06/21/24 at 1534, Pain, severe pain (7-10), If multiple routes of administration ordered, oral route first line., Routine Given 06/17/2024 12:08 AM EST 10 mg Given 06/16/2024 7:25 PM EST 10 mg oxyCODONE (Roxicodone) tablet 15 mg 15 mg, Oral, EVERY 4 HOURS PRN, Starting on Fri06/15/24 at 2218, Until Fri06/16/24 at 1815, Pain, severe pain (7-10), If multiple routes of administration ordered, oral route first line., Routine Given 06/16/2024 4:05 AM EST 15 mg oxyCODONE (Roxicodone) tablet 5 mg 5 mg, Oral, EVERY 4 HOURS PRN, Starting on Fri06/15/24 at 2221, Until Fri06/16/24 at 1815, Pain, Breakthrough pain rescue dose, For moderate or severe pain (4-10) unrelieved at least 60 minutes after initial PRN dose was administered Max 3 doses/24 hours. If pain still unrelieved after 3rd rescue dose within 24 hours, contact provider. If multiple routes of administration ordered, oral route first line., Routine Given 06/16/2024 1:15 AM EST 5 mg oxyCODONE (Roxicodone) tablet 5 mg 5 mg, Oral, EVERY 4 HOURS PRN, Starting on Fri06/16/24 at 1814, Until Fri06/21/24 at 1534, Pain, moderate pain (4-6), For adults, may give in place of other agent(s) ordered for pain (7-10) at patient request. If multiple routes of administration ordered, oral route first line., Routine Given 06/19/2024 8:19 PM EST 5 mg Given 06/19/2024 3:05 PM EST 5 mg Given 06/18/2024 7:45 PM EST 5 mg oxyCODONE (Roxicodone) tablet 5 mg 5 mg, Oral, EVERY 4 HOURS PRN, Starting on Fri06/16/24 at 1814, Until Fri06/21/24 at 1534, Pain, Breakthrough pain rescue dose, For moderate or severe pain (4-10) unrelieved at least 60 minutes after initial PRN dose was administered Max 3 doses/24 hours. If pain still unrelieved after 3rd rescue dose within 24 hours, contact provider. If multiple routes of administration ordered, oral route first line., Routine Given 06/18/2024 6:26 PM EST 5 mg Given 06/17/2024 7:59 AM EST 5 mg Given 06/16/2024 10:27 PM EST 5 mg oxymetazoline (Afrin) 0.05 % nasal spray 2 spray 2 spray, Each Nare, 2 TIMES DAILY, 6 doses, First dose on Fri06/20/24 at 2100, Last dose on Fri06/23/24 at 0900, Flow Nurse recommended duration is 3 days., Routine Given 06/20/2024 8:44 PM EST 2 s prays pantoprazole (Protonix) injection 40 mg 40 mg, Intravenous, DAILY, First dose on Fri06/14/24 at 1500, Until Discontinued, Reconstitute with 10 mL of normal saline to a concentration of 4 mg/mL and inject slowly over 2 minutes. Reconstitute with 10 mL of normal saline to a concentration of 4 mg/mL and inject slowly over 2 minutes., Routine Given 06/14/2024 3:11 PM EST 40 mg pantoprazole EC (Protonix) tablet 40 mg 40 mg, Oral, DAILY, First dose on Fri06/14/24 at 1500, Until Discontinued, DO NOT CRUSH OR OPEN If unable to take PO, may give IV, Routine Given 06/21/2024 8:37 AM EST 40 mg Given 06/20/2024 8:13 AM EST 40 mg Given 06/19/2024 8:23 AM EST 40 mg perflutren lipid microspheres (Definity) injection 0.5 mL 0.5 mL, Intravenous, ONCE PRN, 1 dose, Starting on Fri06/03/24 at 0847, Until Fri06/03/24 at 0847, Other, Routine Given 06/03/2024 8:47 AM EDT 0.5 mLs potassium chloride 20 mEq in sterile water 100 mL infusion 20 mEq, Intravenous, EVERY 1 HOUR PRN, Starting on Fri06/14/24 at 1946, Until Fri06/15/24 at 1406, Administer over 60 Minutes, hypokalemia, Administer 1 dose for a serum potassium (mMol/L) of 3.9 - 4 potassium chloride 20 meq/100 mL bags must be infused through a CENTRAL LINE New Bag 06/14/2024 7:57 PM EST 20 mEq 100 mL/hr potassium chloride ER (Klor-Con M) crystal tablet 20 mEq 20 mEq, Oral, EVERY 4 HOURS PRN, Starting on Fri06/04/24 at 0548, Until Fri06/14/24 at 1437, hypokalemia, Administer for serum potassium (mMol/L) of 3.9 - 4 potassium chloride ER particle/crystal tablets (Klor-Con M) may be broken in half and each half swallowed separately. Tablets can be dissolved in ~4 ounces of water; allow ~2 minutes to dissolve, stir well and drink immediately. Do not crush, chew, or suck on tablet., Routine Given 06/13/2024 3:29 AM EST 20 mEq Given 06/09/2024 4:42 AM EST 20 mEq Given 06/06/2024 5:28 AM EST 20 mEq potassium chloride ER (Klor-Con M) crystal tablet 40 mEq 40 mEq, Oral, EVERY 4 HOURS PRN, Starting on Fri06/04/24 at 0548, Until 06/14/24 at 1437, hypokalemia, Administer for serum potassium (mMol/L) of 3.6 - 3.8 potassium chloride ER particle/crystal tablets (Klor-Con M) may be broken in half and each half swallowed separately. Tablets can be dissolved in ~4 ounces of water; allow ~2 minutes to dissolve, stir well and drink immediately. Do not crush, chew, or suck on tablet., Routine Given 06/12/2024 4:58 AM EST 40 mEq Given 06/07/2024 4:59 AM EST 40 mEq Given 06/04/2024 11:54 PM EDT 40 mEq potassium chloride ER (Klor-Con M) crystal tablet 40 mEq 40 mEq, Oral, ONCE, 1 dose, On 06/19/24 at 0645, potassium chloride ER particle/crystal tablets (Klor-Con M) may be broken in half and each half swallowed separately. Tablets can be dissolved in ~4 ounces of water; allow ~2 minutes to dissolve, stir well and drink immediately. Do not crush, chew, or suck on tablet., Routine Given 06/19/2024 6:29 AM EST 40 mEq potassium chloride ER (Klor-Con M) crystal tablet 40 mEq 40 mEq, Oral, ONCE, 1 dose, On 06/20/24 at 0700, potassium chloride ER particle/crystal tablets (Klor-Con M) may be broken in half and each half swallowed separately. Tablets can be dissolved in ~4 ounces of water; allow ~2 minutes to dissolve, stir well and drink immediately. Do not crush, chew, or suck on tablet., Routine Given 06/20/2024 6:49 AM EST 40 mEq propofoL (Diprivan) (10 mg/mL) infusion 0-50 mcg/kg/min ? 76 kg Adjusted weight (0-22.8 mL/hr), Intravenous, CONTINUOUS, Starting on Fri06/14/24 at 1500, Until Fri06/15/24 at 0749, Titrate to sedation level of RASS Goal (-1). Start at 10 mcg/kg/min. Increase/decrease by 5 mcg/kg/min every 3 minutes until goal reached. Once stable, reassess patient every 30 minutes. Do not exceed 50 mcg/kg/minute. Discontinue upon extubation. ., Routine New Bag 06/14/2024 8:10 PM EST 50 mcg/kg/min 22.8 mL/hr Rate/Dose Verify 06/14/2024 8:00 PM EST 50 mcg/kg/min 22.8 mL/hr Rate/Dose Verify 06/14/2024 7:00 PM EST 50 mcg/kg/min 22.8 mL/hr sacubitriL-valsartan (Entresto) 49-51 mg per tablet 1 tablet 1 tablet, Oral, 2 TIMES DAILY, First dose on Miguelina 06/17/24 at 0900, Until Discontinued, Routine, Is this a continuation of home medication? Yes Given 06/21/2024 8:37 AM EST 1 table t Given 06/20/2024 8:42 PM EST 1 tablet Given 06/20/2024 8:13 AM EST 1 tablet senna-docusate (Pericolace) 8.6-50 mg per tablet 2 tablet 2 tablet, Oral, 2 TIMES DAILY, First dose (after last modification) on Fri06/15/24 at 2100, Until Discontinued, Post-op day 1, Routine Given 06/19/2024 8:23 AM EST 2 tablets Given 06/18/2024 8:44 AM EST 2 tablets Given 06/17/2024 8:02 PM EST 2 tablets sodium chloride ([place]) 0.65 % nasal spray 1 spray 1 spray, Each Nare, 2 TIMES DAILY PRN, Starting on 06/20/24 at 1737, Until Fri06/21/24 at 1534, Congestion, Routine Given 06/20/2024 8:42 PM EST 1 spra y sodium chloride 0.9 % (flush) (BD PosiFlush Normal Saline 0.9) flush 5 mL 5 mL, Intravenous, 2 TIMES DAILY, First dose on Fri06/03/24 at 0130, Until Discontinued, Routine Given 06/13/2024 11:14 PM EST 5 mLs Given 06/13/2024 8:20 AM EST 5 mLs Given 06/12/2024 9:11 AM EST 5 mLs sodium chloride 0.9 % (flush) (BD PosiFlush Normal Saline 0.9) flush 5 mL 5 mL, Intravenous, EVERY 8 HOURS, First dose on Fri06/15/24 at 1430, Until Discontinued, Routine Given 06/21/2024 6:07 AM EST 5 mLs Given 06/20/2024 12:51 PM EST 5 mLs Given 06/20/2024 5:31 AM EST 5 mLs sodium chloride 0.9% infusion 0-500 mL/hr, Intravenous, CONTINUOUS, Starting on Fri06/14/24 at 1500, Until Fri06/15/24 at 1259, Bolus 250 mL every 5 minutes as needed for volume replacement to maintain cardiac index greater than or equal to 2.0 L/min/M2. Maximum volume 2 L. Call [employer] brakeman for additional fluid orders: pager #[phone]. Rate/Dose Verify 06/15/2024 10:00 AM EST 1 mL/hr 1 mL/hr Rate/Dose Verify 06/15/2024 8:00 AM EST 1 mL/hr 1 mL/hr Rate/Dose Verify 06/15/2024 6:00 AM EST 1 mL/hr 1 mL/hr sodium chloride 0.9% infusion 10-30 mL/hr, Intravenous, DAILY PRN, Starting on Fri06/14/24 at 1436, Until Fri06/15/24 at 1406, Side port TKO rate, per [facility] nursing protocol. Rate/Dose Verify 06/15/2024 10:00 AM EST 30 mL/hr 30 mL/hr Rate/Dose Verify 06/15/2024 8:00 AM EST 30 mL/hr 30 mL/h r Rate/Dose Verify 06/15/2024 6:00 AM EST 30 mL/hr 30 mL/h r sodium chloride 0.9% infusion 10-30 mL/hr, Intravenous, DAILY PRN, Starting on Fri06/14/24 at 1436, Until Fri06/15/24 at 1406, Side port TKO rate, per [facility] nrusing protocol. Rate/Dose Verify 06/15/2024 2:00 PM EST 30 mL/hr 30 mL/hr Rate/Dose Verify 06/15/2024 12:00 PM EST 30 mL/hr 30 mL/ hr Rate/Dose Verify 06/15/2024 10:00 AM EST 30 mL/hr 30 mL/ hr documented in this encounter Active and Recently Administered Medications Times are shown in EST. Scheduled Medication Order 06/19/2024 06/20/2024 06/21/2024 acetaminophen (Tylenol) tablet 975 mg(Linked Group 1) 975 mg, Oral, EVERY 6 HOURS SCHEDULED, First dose on Fri06/15/24 at 1800, Until Discontinued, For pain when taking by mouth. Maximum dose of acetaminophen is 4,000 mg from all sources in 24 hours. When ordered for pain, acetaminophen should be given even when other ordered pain medications are indicated., Routine 0614 (Given - Provider: Christina Myers RN)1233 (Given - Provider: Mary Lou Lane RN)1753 (Given - Provider: Mary Lou Lane RN) 0000 (Given - Provider: Christina Myers RN)0530 (Given - Provider: Christina Myers RN)1206 (Given - Provider: Michelle Orozco RN)1744 (Given - Provider: Michelle Orozco RN) 0002 (Given - Provider: Christina Myers RN)0605 (Given - Provider: Christina Myers RN)1203 (Given - Provider: Shazia Mcdonald, JAMIE) aspirin chewable tablet 81 mg(Linked Group 2) 81 mg, Oral, DAILY, First dose on Fri06/14/24 at 1500, Until Discontinued, Routine 0823 (Given - Provider: Mary Lou Lane RN) 0812 (Given - Provider: Michelle Orozco RN) 0837 (Given - Provider: Shazia Mcdonald RN) atorvastatin (Lipitor) tablet 80 mg 80 mg, Oral, EVERY EVENING, First dose on Fri06/03/24 at 0130, Until Discontinued, Routine 175 (Given - Provider: Mary Lou Lane RN) 174 (Given - Provider: Michelle Orozco RN) carvediloL (Coreg) tablet 12.5 mg 12.5 mg, Oral, 2 TIMES DAILY WITH MEALS, First dose (after last modification) on Fri06/18/24 at 0800, Until Discontinued, Routine 0825 (Given - Provider: Mary Lou Lane RN)175 (Given - Provider: Mary Lou Lane RN) 08 (Given - Provider: Michelle Orozco RN)174 (Given - Provider: Michelle Orozco RN) 0837 (Given - Provider: Shazia Mcdonald RN) clopidogreL (Plavix) tablet 75 mg 75 mg, Oral, DAILY, First dose on Fri06/15/24 at 0900, Until Discontinued, Routine 08 (Given - Provider: Mary Lou Lane RN) 08 (Given - Provider: Michelle Orozco RN) 0837 (Given - Provider: Shazia Mcdonald RN) empagliflozin (Jardiance) tablet 25 mg 25 mg, Oral, DAILY, First dose on Fri06/18/24 at 1030, Until Discontinued, This medication should not be given with reduced PO intake/fluid loss, severe illness, or in patients with ketonemia or ketouria., Routine, This medication should be held for 3 days prior to surgery. Is there a planned procedure within 3 days? No, Indication for empagliflozin: heart failure (HFpEF or HFrEF), Is this a new initiation for patients with heart failure (HFpEF or HFrEF) with or without diabetes? No 0824 (Given - Provider: Mary Lou Lane RN) 0812 (Given - Provider: Michelle Orozco RN) 0837 (Given - Provider: Shazia Mcdonald RN) erythromycin (Romycin) 5 mg/gram (0.5 %) ophthalmic ointment Right Eye, 4 TIMES DAILY, First dose on Fri06/08/24 at 1330, Until Discontinued, Use ~1 cm ribbon 0828 (Given - Provider: Mary Lou Lane RN)1234 (Given - Provider: Mary Lou Lane RN)1800 (Given - Provider: Mary Lou Lane RN)202 (Given - Provider: Christina Myers RN) 0821 (Given - Provider: Michelle Orozco RN)1206 (Given - Provider: Michelle Orozco RN)1750 (Given - Provider: Michelle Orozco RN)204 (Given - Provider: Christina Myers RN) 0841 (Given - Provider: Shazia Mcdonald RN)1300 (Due) escitalopram (Lexapro) tablet 20 mg 20 mg, Oral, DAILY, First dose on Fri06/03/24 at 0900, Until Discontinued, Routine 0824 (Given - Provider: Mary Lou Lane RN) 0812 (Given - Provider: Michelle Orozco RN) 0838 (Given - Provider: Shazia Mcdonald RN) furosemide (Lasix) (10 mg/mL) injection 40 mg (CANCELED) 40 mg, Intravenous, 2 TIMES DAILY, First dose on Fri06/17/24 at 0900, Until Discontinued 0832 (Given - Provider: Mary Lou Lane RN)1755 (Given - Provider: Mary Lou Lane RN) 0813 (Given - Provider: Michelle Orozco RN) furosemide (Lasix) tablet 60 mg 60 mg, Oral, DAILY, First dose on Fri06/20/24 at 1000, Until Discontinued, Routine 0945 (Given - Provider: Michelle Orozco RN) 0837 (Given - Provider: Shazia Mcdonald RN) guaiFENesin ER (Mucinex) tablet 600 mg 600 mg, Oral, EVERY 12 HOURS, First dose on 06/20/24 at 1800, Until Discontinued, DO NOT CRUSH OR OPEN, Routine 1744 (Given - Provider: Michelle Orozco RN) 0605 (Given - Provider: Christina Myers RN) insulin glargine-ygfn (Semglee) (100 unit/mL) subcutaneous injection vial 30 Units 30 Units, Subcutaneous, DAILY, First dose (after last modification) on 06/21/24 at 0900, Until Discontinued, Routine 0841 (Given - Provider: Shazia Mcdonald, RN) insulin glargine-ygfn (Semglee) (100 unit/mL) subcutaneous injection vial 35 Units (CANCELED) 35 Units, Subcutaneous, DAILY, First dose (after last modification) on 06/20/24 at 0900, Until Discontinued, Routine 08 (Given - Provider: Michelle Orozco RN) insulin glargine-ygfn (Semglee) (100 unit/mL) subcutaneous injection vial 45 Units (CANCELED) 45 Units, Subcutaneous, DAILY, First dose (after last modification) on 06/19/24 at 0900, Until Discontinued, Routine 08 (Given - Provider: Mary Lou Lane RN) insulin lispro (HumaLOG;Admelog) (100 unit/mL) subcutaneous injection vial 0-15 Units 0-15 Units, Subcutaneous, 3 TIMES DAILY WITH MEALS, First dose (after last modification) on 06/19/24 at 0800, Until Discontinued, [employer] Give 1 unit: 5 grams of carbohydrate Hold if not eating or if BG less than 70 mg/dL., Routine 0820 (Given - Provider: Mary Lou Lane RN)1237 (Given - Provider: Mary Lou Lane RN)1802 (Given - Provider: Mary Lou Lane RN) 0825 (Given - Provider: Michelle Orozco RN - Comment: 49 CHO)1250 (Given - Provider: Michelle Orozco, JAMIE - Comment: CHO 35)1747 (Given - Provider: Michelle Orozco RN - Comment: CHO 35) 0800 (Not Given - Provider: Shazia Mcdonald, JAMIE - Reason: Patient/family refused)1200 (Due) insulin lispro (HumaLOG;Admelog) (100 unit/mL) subcutaneous injection vial 1-10 Units(Linked Group 3) 1-10 Units, Subcutaneous, EVERY 4 HOURS SCHEDULED, First dose (after last modification) on 06/19/24 at 0800, Until Discontinued, CORRECTION BOLUS [1-10 Units] Correction Factor 15 (1 unit of insulin is expected to drop the glucose 15 mg/dL) BG 140 - 155 Give 1 units BG 156 - 170 Give 2 units BG 171 - 185 Give 3 units BG 186 - 200 Give 4 units BG 201 - 215 Give 5 units BG 216 - 230 Give 6 units BG 231 - 245 Give 8 units BG greater than 245, give 10 units and recheck BG in 2 hours. If BG remains greater than 245, 10 units (no more than TWO times) & call for new basal insulin orders. If less than 245 after two hours, give no insulin and resume prior schedule. DO NOT hold if NPO, unless specifically directed to do so by written order. Per Blood Glucose Monitoring Policy, re-check a BG of > 240 mg/dL in 2 hours. , Routine 0800 (Not Given - Provider: Mary Lou Lane RN - Reason: Order parameters not met - Comment: BG 125)1237 (Not Given - Provider: Mary Lou Lane RN - Reason: Order parameters not met - Comment: bg 136)1600 (Not Given - Provider: Mary Lou Lane RN - Reason: Order parameters not met - Comment: BG 129)1999 (Not Given - Provider: Christina Myers RN - Reason: Order parameters not met - Comment: BG 131) 0000 (Not Given - Provider: Christina Myers RN - Reason: Order parameters not met - Comment: BG 59)0400 (Not Given - Provider: Christina Myers RN - Reason: Order parameters not met - Comment: BG 79)0800 (Not Given - Provider: Michelle Orozco RN - Reason: Order parameters not met - Comment: BG 130)1206 (Given - Provider: Michelle Orozco RN - Comment: BG 173)1600 (Not Given - Provider: Michelle Orozco RN - Reason: Order parameters not met - Comment: BG 124)1999 (Not Given - Provider: Christina Myers RN - Reason: Order parameters not met - Comment: BG 132) 0000 (Not Given - Provider: Christina Myers RN - Reason: Order parameters not met - Comment: BG 67)0400 (Not Given - Provider: Christina Myers RN - Reason: Patient/family refused - Comment: Patient refused, stating it will drop his BG again. Stated he will take his insulin in the morning)0800 (Not Given - Provider: Shazia Mcdonald RN - Reason: See comment - Comment: discharged)1200 (Due) lidocaine (Lidoderm) 5% patch 1 patch 1 patch, Transdermal, Administer over 12 Hours, EVERY 24 HOURS, First dose on Fri06/15/24 at 0830, Until Discontinued, Apply patch(es) for 12 hours, and then remove for 12 hours., Routine 827 (Not Given - Provider: Mary Lou Lane RN - Reason: Patient/family refused)2020 (Patch Applied - Provider: Christina Myers RN) 08 (Patch Removed - Provider: Michelle Orozco RN)0820 (Patch Applied - Provider: Michelle Orozco RN)2019 (Patch Removed - Provider: Christina Myers RN) 0843 (Patch Applied - Provider: Shazia Mcdonald RN)1307 (Due: Patch Removed - Provider: Automatic Discharge Provider - Comment: Time automatically adjusted from order being discontinued) magnesium hydroxide (Milk of Magnesia) (80mg/mL) oral liquid 2,400 mg 2,400 mg (30 mL), Oral, DAILY, First dose on Fri06/16/24 at 0900, Until Discontinued, Post-op day 2. Do not use with renal insufficiency., Routine 0900 (Not Given - Provider: Mary Lou Lane RN - Reason: Patient/family refused) 0812 (Given - Provider: Michelle Orozco RN) 0900 (Not Given - Provider: Shazia Mcdonald RN - Reason: Patient/family refused) oxymetazoline (Afrin) 0.05 % nasal spray 2 spray 2 spray, Each Nare, 2 TIMES DAILY, 6 doses, First dose on Fri06/20/24 at 2100, Last dose on Fri06/23/24 at 0900, Flow Nurse recommended duration is 3 days., Routine 2043 (Given - Provider: Christina Myers RN) 0900 (Not Given - Provider: Shazia Mcdonald RN - Reason: Patient/family refused) pantoprazole EC (Protonix) tablet 40 mg(Linked Group 4) 40 mg, Oral, DAILY, First dose on 06/14/24 at 1500, Until Discontinued, DO NOT CRUSH OR OPEN If unable to take PO, may give IV, Routine 08 (Given - Provider: Mary Lou Lane RN) 08 (Given - Provider: Michelle Orozco RN) 0837 (Given - Provider: Shazia Mcdonald RN) potassium chloride ER (Klor-Con M) crystal tablet 40 mEq (COMPLETED) 40 mEq, Oral, ONCE, 1 dose, On 06/19/24 at 0645, potassium chloride ER particle/crystal tablets (Klor-Con M) may be broken in half and each half swallowed separately. Tablets can be dissolved in ~4 ounces of water; allow ~2 minutes to dissolve, stir well and drink immediately. Do not crush, chew, or suck on tablet., Routine 06 (Given - Provider: Christina Myers RN) potassium chloride ER (Klor-Con M) crystal tablet 40 mEq (COMPLETED) 40 mEq, Oral, ONCE, 1 dose, On 06/20/24 at 0700, potassium chloride ER particle/crystal tablets (Klor-Con M) may be broken in half and each half swallowed separately. Tablets can be dissolved in ~4 ounces of water; allow ~2 minutes to dissolve, stir well and drink immediately. Do not crush, chew, or suck on tablet., Routine 0649 (Given - Provider: Christina Myers RN) sacubitriL-valsartan (Entresto) 49-51 mg per tablet 1 tablet 1 tablet, Oral, 2 TIMES DAILY, First dose on Miguelina 06/17/24 at 0900, Until Discontinued, Routine, Is this a continuation of home medication? Yes 822 (Given - Provider: Mary Lou Lane RN - Comment: bp 125/65)2015 (Given - Provider: Christina Myers RN - Comment: 117/75) 0813 (Given - Provider: Michelle Orozco, JAMIE)2041 (Given - Provider: Christina Myers RN - Comment: 93/72) 0837 (Given - Provider: Shazia Mcdonald, JAMIE) senna-docusate (Pericolace) 8.6-50 mg per tablet 2 tablet 2 tablet, Oral, 2 TIMES DAILY, First dose (after last modification) on Fri06/15/24 at 2100, Until Discontinued, Post-op day 1, Routine 0823 (Given - Provider: Mary Lou Lane RN)2100 (Not Given - Provider: Christina Myers RN - Reason: Patient/family refused - Comment: soft BM this am per pt) 0900 (Not Given - Provider: Michelle Orozco RN - Reason: Patient/family refused)2100 (Not Given - Provider: Christina Myers RN - Reason: Patient/family refused) 0900 (Not Given - Provider: Shazia Mcdonald RN - Reason: Patient/family refused) sodium chloride 0.9 % (flush) (BD PosiFlush Normal Saline 0.9) flush 5 mL 5 mL, Intravenous, EVERY 8 HOURS, First dose on Fri06/15/24 at 1430, Until Discontinued, Routine 0630 (Not Given - Provider: Christina Myers RN - Reason: See comment)1505 (Given - Provider: Mary Lou Lane RN)2230 (Not Given - Provider: Christina Myers RN - Reason: See comment - Comment: given once during assessment) 0531 (Given - Provider: Christina Myers RN)1251 (Given - Provider: Michelle Orozco RN)2230 (Not Given - Provider: Christina Myers RN - Reason: See comment) 0607 (Given - Provider: Christina Myers RN) PRN Medication Order 06/19/2024 06/20/2024 06/21/2024 bisacodyL (Dulcolax) suppository 10 mg 10 mg, Rectal, DAILY PRN, Starting on Miguelina 06/17/24 at 0000, Until Fri06/21/24 at 1534, Constipation, Starting post-op day 3., Routine dextrose 50% intravenous solution 25 g(Linked Group 5) 25 g, Intravenous, EVERY 15 MIN PRN, Starting on Tu06/15/24 at 1532, Until Fri06/21/24 at 1534, Low blood sugar, ??Oral treatment preferred For Blood Glucose 50 to 70 mg/dL: ?? -??IF ABLE TO DRINK, give 120 mL juice or regular (not diet) soda - IF NPO, give 15 gram glucose 40% oral gel massaged into buccal mucosa - IF UNCONSCIOUS OR UNCOOPERATIVE, give 25 gram dextrose IV - IF NO IV ACCESS, give 1 mg glucagon IM. For Blood Glucose LESS than 50 mg/dL: ?? -??IF ABLE TO DRINK, give 240 mL juice or regular (not diet) soda - IF NPO, give 30 gram glucose 40% oral gel massaged into buccal mucosa - IF UNCONSCIOUS OR UNCOOPERATIVE, give 25 gram dextrose IV - IF NO IV ACCESS, 1 mg glucagon IM. Recheck BG in 15 minutes. May repeat juice/soda, gel, dextrose or glucagon once per episode. Notify provider if hypoglycemia does not resolve after two treatments. Providers should consider the following: administering longer-acting treatments for the duration of active insulin or hypoglycemia agent for persistent hypoglycemia and re-evaluating active insulin orders before administering the next dose. Warning Vesicant/Irritant Medication , Routine glucagon (Glucagen) (1 mg/mL) injection solution 1 mg(Linked Group 5) 1 mg, Intramuscular, EVERY 15 MIN PRN, Starting on Fri06/15/24 at 1532, Until Fri06/21/24 at 1534, Low blood sugar, ??Oral treatment preferred For Blood Glucose 50 to 70 mg/dL: ?? -??IF ABLE TO DRINK, give 120 mL juice or regular (not diet) soda - IF NPO, give 15 gram glucose 40% oral gel massaged into buccal mucosa - IF UNCONSCIOUS OR UNCOOPERATIVE, give 25 gram dextrose IV - IF NO IV ACCESS, give 1 mg glucagon IM. For Blood Glucose LESS than 50 mg/dL: ?? -??IF ABLE TO DRINK, give 240 mL juice or regular (not diet) soda - IF NPO, give 30 gram glucose 40% oral gel massaged into buccal mucosa - IF UNCONSCIOUS OR UNCOOPERATIVE, give 25 gram dextrose IV - IF NO IV ACCESS, 1 mg glucagon IM. Recheck BG in 15 minutes. May repeat juice/soda, gel, dextrose or glucagon once per episode. Notify provider if hypoglycemia does not resolve after two treatments. Providers should consider the following: administering longer-acting treatments for the duration of active insulin or hypoglycemia agent for persistent hypoglycemia and re-evaluating active insulin orders before administering the next dose., Routine glucose (Glutose) 40% oral geL(Linked Group 5) 15-30 g of glucose, Buccal, EVERY 15 MIN PRN, Starting on Fri06/15/24 at 1532, Until Fri06/21/24 at 1534, Low blood sugar, ??Oral treatment preferred For Blood Glucose 50 to 70 mg/dL: ?? -??IF ABLE TO DRINK, give 120 mL juice or regular (not diet) soda - IF NPO, give 15 gram glucose 40% oral gel massaged into buccal mucosa - IF UNCONSCIOUS OR UNCOOPERATIVE, give 25 gram dextrose IV - IF NO IV ACCESS, give 1 mg glucagon IM. For Blood Glucose LESS than 50 mg/dL: ?? -??IF ABLE TO DRINK, give 240 mL juice or regular (not diet) soda - IF NPO, give 30 gram glucose 40% oral gel massaged into buccal mucosa - IF UNCONSCIOUS OR UNCOOPERATIVE, give 25 gram dextrose IV - IF NO IV ACCESS, 1 mg glucagon IM. Recheck BG in 15 minutes. May repeat juice/soda, gel, dextrose or glucagon once per episode. Notify provider if hypoglycemia does not resolve after two treatments. Providers should consider the following: administering longer-acting treatments for the duration of active insulin or hypoglycemia agent for persistent hypoglycemia and re-evaluating active insulin orders before administering the next dose. 1 tube of Glutose-15 contains 15 grams of glucose (net weight of tube = 37.5 grams.), Routine ipratropium-albuteroL (Duoneb) 0.5 mg-3 mg(2.5 mg base)/3 mL nebulizer solution 3 mL 3 mL, Nebulization, EVERY 4 HOURS PRN, Starting on Fri06/15/24 at 0858, Until Fri06/21/24 at 1534, Wheezing, Routine ondansetron (pf) (Zofran) (2 mg/mL) injection 4 mg 4 mg, Intravenous, EVERY 8 HOURS PRN, Starting on Fri06/14/24 at 1436, Until Fri06/21/24 at 1534, Nausea oxyCODONE (Roxicodone) tablet 10 mg(Linked Group 6) 10 mg, Oral, EVERY 4 HOURS PRN, Starting on Fri06/16/24 at 1814, Until Fri06/21/24 at 1534, Pain, severe pain (7-10), If multiple routes of administration ordered, oral route first line., Routine 1505 (See Alternative - Provider: Mary Lou Lane RN)2018 (See Alternative - Provider: Christina Myers RN) oxyCODONE (Roxicodone) tablet 5 mg(Linked Group 6) 5 mg, Oral, EVERY 4 HOURS PRN, Starting on Fri06/16/24 at 1814, Until Fri06/21/24 at 1534, Pain, moderate pain (4-6), For adults, may give in place of other agent(s) ordered for pain (7-10) at patient request. If multiple routes of administration ordered, oral route first line., Routine 1505 (Given - Provider: Mary Lou Lane RN)2018 (Given - Provider: Christina Myers RN) oxyCODONE (Roxicodone) tablet 5 mg 5 mg, Oral, EVERY 4 HOURS PRN, Starting on Fri06/16/24 at 1814, Until Fri06/21/24 at 1534, Pain, Breakthrough pain rescue dose, For moderate or severe pain (4-10) unrelieved at least 60 minutes after initial PRN dose was administered Max 3 doses/24 hours. If pain still unrelieved after 3rd rescue dose within 24 hours, contact provider. If multiple routes of administration ordered, oral route first line., Routine sodium chloride ([place]) 0.65 % nasal spray 1 spray 1 spray, Each Nare, 2 TIMES DAILY PRN, Starting on Fri06/20/24 at 1737, Until Fri06/21/24 at 1534, Congestion, Routine 2042 (Given - Provider: Christina Myers RN) Linked Groups Order Group 1: acetaminophen (Ofirmev) (1,000 mg/100 mL) infusion 1,000 mg (COMPLETED) 1,000 mg, Intravenous, at 400 mL/hr, Administer over 15 Minutes, EVERY 6 HOURS SCHEDULED, 4 doses, First dose on Fri06/14/24 at 1800, Last dose on Fri06/15/24 at 1200, - Maximum dose of acetaminophen is 4,000 mg from all sources in 24 hours. - Unless otherwise specified, when ordered PRN for pain, acetaminophen should be given first if other PRN pain medications are ordered., Routine, Is ketorolac (Toradol) IV contraindicated? Yes, Can this patient tolerate oral medications or suppositories? No Followed by acetaminophen (Tylenol) tablet 975 mgJump to med 975 mg, Oral, EVERY 6 HOURS SCHEDULED, First dose on Fri06/15/24 at 1800, Until Discontinued, For pain when taking by mouth. Maximum dose of acetaminophen is 4,000 mg from all sources in 24 hours. When ordered for pain, acetaminophen should be given even when other ordered pain medications are indicated., Routine Group 2: aspirin chewable tablet 81 mgJump to med 81 mg, Oral, DAILY, First dose on Fri06/14/24 at 1500, Until Discontinued, Routine Or aspirin suppository 300 mg (CANCELED) 300 mg, Rectal, DAILY, First dose on Fri06/14/24 at 1500, Until Discontinued, Start on Post-Op Day 0, please give within 6 hours upon arrival to Unit. Give ND if unable to take PO, Routine Group 3: POCT Fingerstick Glucose (CANCELED) Routine, EVERY 4 HOURS, First occurrence on Fri06/19/24 at 0800, Until Specified, Consider choosing EVERY 4 HOURS as frequency for: - Type 1 Diabetes - At least 24 hours after coming off an insulin drip - At least 24 hours after admission for DKA - Hypoglycemia unawareness - Patients who are otherwise unstable Select the same frequency for the correction bolus insulin order And insulin lispro (HumaLOG;Admelog) (100 unit/mL) subcutaneous injection vial 1-10 UnitsJump to med 1-10 Units, Subcutaneous, EVERY 4 HOURS SCHEDULED, First dose (after last modification) on Fri06/19/24 at 0800, Until Discontinued, CORRECTION BOLUS [1-10 Units] Correction Factor 15 (1 unit of insulin is expected to drop the glucose 15 mg/dL) BG 140 - 155 Give 1 units BG 156 - 170 Give 2 units BG 171 - 185 Give 3 units BG 186 - 200 Give 4 units BG 201 - 215 Give 5 units BG 216 - 230 Give 6 units BG 231 - 245 Give 8 units BG greater than 245, give 10 units and recheck BG in 2 hours. If BG remains greater than 245, 10 units (no more than TWO times) & call for new basal insulin orders. If less than 245 after two hours, give no insulin and resume prior schedule. DO NOT hold if NPO, unless specifically directed to do so by written order. Per Blood Glucose Monitoring Policy, re-check a BG of > 240 mg/dL in 2 hours. , Routine Group 4: pantoprazole EC (Protonix) tablet 40 mgJump to med 40 mg, Oral, DAILY, First dose on Fri06/14/24 at 1500, Until Discontinued, DO NOT CRUSH OR OPEN If unable to take PO, may give IV, Routine Or pantoprazole (Protonix) injection 40 mg (CANCELED) 40 mg, Intravenous, DAILY, First dose on Fri06/14/24 at 1500, Until Discontinued, Reconstitute with 10 mL of normal saline to a concentration of 4 mg/mL and inject slowly over 2 minutes. Reconstitute with 10 mL of normal saline to a concentration of 4 mg/mL and inject slowly over 2 minutes., Routine Group 5: glucose (Glutose) 40% oral geLJump to med 15-30 g of glucose, Buccal, EVERY 15 MIN PRN, Starting on Fri06/15/24 at 1532, Until Fri06/21/24 at 1534, Low blood sugar, ??Oral treatment preferred For Blood Glucose 50 to 70 mg/dL: ?? -??IF ABLE TO DRINK, give 120 mL juice or regular (not diet) soda - IF NPO, give 15 gram glucose 40% oral gel massaged into buccal mucosa - IF UNCONSCIOUS OR UNCOOPERATIVE, give 25 gram dextrose IV - IF NO IV ACCESS, give 1 mg glucagon IM. For Blood Glucose LESS than 50 mg/dL: ?? -??IF ABLE TO DRINK, give 240 mL juice or regular (not diet) soda - IF NPO, give 30 gram glucose 40% oral gel massaged into buccal mucosa - IF UNCONSCIOUS OR UNCOOPERATIVE, give 25 gram dextrose IV - IF NO IV ACCESS, 1 mg glucagon IM. Recheck BG in 15 minutes. May repeat juice/soda, gel, dextrose or glucagon once per episode. Notify provider if hypoglycemia does not resolve after two treatments. Providers should consider the following: administering longer-acting treatments for the duration of active insulin or hypoglycemia agent for persistent hypoglycemia and re-evaluating active insulin orders before administering the next dose. 1 tube of Glutose-15 contains 15 grams of glucose (net weight of tube = 37.5 grams.), Routine Or dextrose 50% intravenous solution 25 gJump to med 25 g, Intravenous, EVERY 15 MIN PRN, Starting on Fri06/15/24 at 1532, Until Fri06/21/24 at 1534, Low blood sugar, ??Oral treatment preferred For Blood Glucose 50 to 70 mg/dL: ?? -??IF ABLE TO DRINK, give 120 mL juice or regular (not diet) soda - IF NPO, give 15 gram glucose 40% oral gel massaged into buccal mucosa - IF UNCONSCIOUS OR UNCOOPERATIVE, give 25 gram dextrose IV - IF NO IV ACCESS, give 1 mg glucagon IM. For Blood Glucose LESS than 50 mg/dL: ?? -??IF ABLE TO DRINK, give 240 mL juice or regular (not diet) soda - IF NPO, give 30 gram glucose 40% oral gel massaged into buccal mucosa - IF UNCONSCIOUS OR UNCOOPERATIVE, give 25 gram dextrose IV - IF NO IV ACCESS, 1 mg glucagon IM. Recheck BG in 15 minutes. May repeat juice/soda, gel, dextrose or glucagon once per episode. Notify provider if hypoglycemia does not resolve after two treatments. Providers should consider the following: administering longer-acting treatments for the duration of active insulin or hypoglycemia agent for persistent hypoglycemia and re-evaluating active insulin orders before administering the next dose. Warning Vesicant/Irritant Medication , Routine Or glucagon (Glucagen) (1 mg/mL) injection solution 1 mgJump to med 1 mg, Intramuscular, EVERY 15 MIN PRN, Starting on Fri06/15/24 at 1532, Until Fri06/21/24 at 1534, Low blood sugar, ??Oral treatment preferred For Blood Glucose 50 to 70 mg/dL: ?? -??IF ABLE TO DRINK, give 120 mL juice or regular (not diet) soda - IF NPO, give 15 gram glucose 40% oral gel massaged into buccal mucosa - IF UNCONSCIOUS OR UNCOOPERATIVE, give 25 gram dextrose IV - IF NO IV ACCESS, give 1 mg glucagon IM. For Blood Glucose LESS than 50 mg/dL: ?? -??IF ABLE TO DRINK, give 240 mL juice or regular (not diet) soda - IF NPO, give 30 gram glucose 40% oral gel massaged into buccal mucosa - IF UNCONSCIOUS OR UNCOOPERATIVE, give 25 gram dextrose IV - IF NO IV ACCESS, 1 mg glucagon IM. Recheck BG in 15 minutes. May repeat juice/soda, gel, dextrose or glucagon once per episode. Notify provider if hypoglycemia does not resolve after two treatments. Providers should consider the following: administering longer-acting treatments for the duration of active insulin or hypoglycemia agent for persistent hypoglycemia and re-evaluating active insulin orders before administering the next dose., Routine Group 6: oxyCODONE (Roxicodone) tablet 5 mgJump to med 5 mg, Oral, EVERY 4 HOURS PRN, Starting on Fri06/16/24 at 1814, Until Fri06/21/24 at 1534, Pain, moderate pain (4-6), For adults, may give in place of other agent(s) ordered for pain (7-10) at patient request. If multiple routes of administration ordered, oral route first line., Routine Or oxyCODONE (Roxicodone) tablet 10 mgJump to med 10 mg, Oral, EVERY 4 HOURS PRN, Starting on Fri06/16/24 at 1814, Until Fri06/21/24 at 1534, Pain, severe pain (7-10), If multiple routes of administration ordered, oral route first line., Routine documented in this encounter Care Teams Bar Host/Hostess Relationship Specialty Start Date End Date Mauro Berumen MD [address] [place] [address] PCP - General Family Medicine 06/02/24 documented as of this encounter
--- OUTSIDE RECORDS SUMMARY | 2024-08-04 20:30 | XMS_ITS | Encounter Summary ---
Author Organization [facility] Address [facility] [place] [address] Care Team Providers Care Gill Box Fixer Name Role Phone Mauro Berumen MD Primary Care Provider [phone] Encounter Details Date Type Department Care Team (Latest Contact Info) Description 06/15/2024 Unscheduled Encounter Cardiology at [address] [place] [id number] Ross Corbin PA [facility] [place] [address] Cardiac resynchronization therapy defibrillator (SECOND BAKER-D) in place [Z95.810] Social History Tobacco Use Types Packs/Day Years Used Date Smoking Tobacco: Every Day Cigarettes Smokeless Tobacco: Never [facility] Utilities Answer Date Recorded In the past [...] any time in the past 12 m onths, were you homeless or living in a [facility] (including now)? No 06/03/2024 DH IPV Inpatient [...] on file documented as of this encounter Progress Notes * Ross Corbin PA - 06/15/2024 2:32 PM EST Cardiac Device Interrogation Arturo Mehta [id number] 06/15/2024 History: Arturo Mehta is a 69 year old male with a PMH significant for HTN, HLD, DM2, current TUD (abstinent since admission), ASCVD with multiple prior [place] and PCIs, 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 Today, EP was asked to reprogram his SECOND BAKER-D device for the procedure. Vitals: Last Set of Vitals and range of vitals over past 24 hours: Range last 24 hrs Temperature Temp: [34.9 ??C (94.8 ??F)-37.6 ??C (99.7 ??F)] Heart Rate Heart Rate: [80-107] Blood Pressure BP: (115)/(65) Respiratory Rate Resp: [11-24] SpO2 SpO2: [92 %-100 %] Device Interrogation: Data Generator: Medtronic Amplia MRI Quad SECOND BAKER-D [id number] / [id number] - Left-sided implant; 06/16/19 RA Lead: Medtronic 4076 CapSureFix Novus [id number]; 06/16/19 RV Lead: Medtronic 6935M / [id number]; 06/16/19 LV Lead: Medtronic [id number] Attain Performa MRI / [id number]; 06/16/19 Alerts VF Detection OFF, 3+ VF or 3+ FVT Rx Off. Diagnostics Pacing Mode: DDD @ 80/130 bpm Presenting EGMs: BV Underlying Rhythm: Sinus tachycardia ~100 bpm Atrial Pacin.7% Ventricular Pacin.6% SECOND BAKER Pacin% Battery and Leads Voltage: 2.93 V NR Status: 2.4 years Magnet Rate: - bpm Charge Time: 4.2 sec Impedances (ohms) Sensing (mV) Thresholds HV RA RV LV RA RV LV RA RV LV 59 [phone] 2.8 >20 - 0.5V @ 0.4ms 2.0V @ 0.4ms 1.5V @ 0.4ms Physical Exam: General- No acute distress, sitting comfortably in exam room chair HEENT- Head atraumatic, normocephalic Skin- Warm and dry Cardiovascular- Regular rate and rhythm. Lungs- Normal respiratory effort Neuro- A&Ox3 Comments: - Device is functioning appropriately - Programming changes - High voltage therapies turned back on and pacing LRL reduced from 90 bpm to80 bpm. VF Detection Off ==> On FVT Detection Off ==> via VF - Contact the device clinic at pager [phone] for any further programming adjustments. Ross Corbin PA-C, PhD 06/15/2024 Pager: [phone] documented in this encounter Plan of Treatment Not on file documented as of this encounter Visit Diagnoses Diagnosis Cardiac resynchronization therapy defibrillator (SECOND BAKER-D) in place [Z95.810] documented in this encounter Care Teams Gill Box Fixer Relationship Specialty Start Date End Date Mauro Berumen MD [address] [place] [address] PCP - General Family Medicine 06/02/24 documented as of this encounter
--- OUTSIDE RECORDS SUMMARY | 2024-08-04 20:30 | XMS_ITS | Encounter Summary ---
Author Organization [facility] Address [facility] [place] [address] Care Team Providers Care Booth Manager Name Role Phone Mauro Berumen MD Primary Care Provider [phone] Encounter Details Date Type Department Care Team (Latest Contact Info) Description 06/14/2024 Unscheduled Encounter Cardiology at [address] [place] [phone] Ross Corbin PA [facility] [place] [address] Cardiac resynchronization therapy defibrillator (INCLUSION SPECIAL EDUCATION TEACHER-D) in place [Z95.810] Social History Tobacco Use Types Packs/Day Years Used Date Smoking Tobacco: Every Day Cigarettes Smokeless Tobacco: Never [facility] Utilities Answer Date Recorded In [...] were you homeless or living in a prison (including now)? No 06/03/2024 DH IPV Inpatient [...] Progress Notes * Ross Corbin PA - 06/14/2024 8:40 AM EST Cardiac Device Interrogation Arturo Mehta [id number] 06/14/2024 History: Arturo Mehta is a 69 year old male with a PMH significant for HTN, HLD, DM2, current TUD (abstinent since admission), ASCVD with multiple prior [place] and PCIs, ICM/HFrEF LVEF 30% (all territories viable on cMRI) who is undergoing a CABG procedure and EP was asked to reprogram his INCLUSION SPECIAL EDUCATION TEACHER-D device for the procedure. Vitals: Last Set of Vitals and range of vitals over past 24 hours: Range last 24 hrs Temperature Temp: [36 ??C (96.8 ??F)-37 ??C (98.6 ??F)] Heart Rate Heart Rate: [57-72] Blood Pressure BP: (99-138)/(66-86) Respiratory Rate Resp: [13-24] SpO2 SpO2: [90 %-98 %] Device Interrogation: Data Generator: [facility] Amplia MRI Quad INCLUSION SPECIAL EDUCATION TEACHER-D [id number] / [id number] - Left-sided implant; 06/16/19 RA Lead: Medtronic 4076 CapSureFix Novus [id number]; 06/16/19 RV Lead: Medtronic 6935M / [id number]; 06/16/19 LV Lead: Medtronic 4298 Attain Performa MRI / [id number]; 06/16/19 Diagnostics Pacing Mode: DDD @ 50/130 bpm Presenting EGMs: RVP LVP Underlying Rhythm: Sinus Atrial Pacin.7% Ventricular Pacin% LV Pacin.9% Battery and Leads Voltage: 2.95 V Status: 2.4 years Magnet Rate: - bpm Charge Time: 4.2 sec Impedances (ohms) Sensing (mV) Thresholds HV RA RV LV RA RV LV RA RV LV 87 [phone] 2.4 >20 - 0.5V @ 0.4ms 2.0V @ 0.4ms 1.5V @ 0.4ms Physical Exam: General- No acute distress, sitting comfortably in exam room chair HEENT- Head atraumatic, normocephalic Skin- Warm and dry Cardiovascular- Regular rate and rhythm. Lungs- Normal respiratory effort Neuro- A&Ox3 Comments: - Pocket incision is well healed without signs or symptoms of infection - Device is functioning appropriately - Programming changes Device was programmed to MRI mode with tachy disabled and pacing set to VOO @ 75 bpm prior to surgery. Device programming was reprogrammed during procedure - MRI mode disabled, tachy therapy turned off and pacing rate increased to 90 bpm.. - Follow up: In-clinic device check as scheduled. Ross Corbin PA-C, PhD 06/14/2024 Pager: [phone] documented in this encounter Plan of Treatment Not on file documented as of this encounter Visit Diagnoses Diagnosis Cardiac resynchronization therapy defibrillator (INCLUSION SPECIAL EDUCATION TEACHER-D) in place [Z95.810] documented in this encounter Care Teams Booth Manager Relationship Specialty Start Date End Date Mauro Berumen MD [address] [place] [address] PCP - General Family Medicine 06/02/24 documented as of this encounter
--- OUTSIDE RECORDS SUMMARY | 2024-08-04 20:32 | XMS_ITS | Encounter Summary ---
Author Organization Formerly [facility] [place] [address] Care Team Providers Care Science Manager Name Role Phone Mauro Berumen MD Primary Care Provider [phone] Reason for Visit * Auth/Cert Specialty Diagnoses / Procedures Referred By Carroll t Referred To Contact Diagnoses STEMI (ST elevation myocardial infarction) STEMI Procedures CARDIAC CATHETERIZATION EMERGENCY Delroy Monterroso MD [facility] [place] [address] [facility] Referral ID Status Reason Start Date Expiration Date Visits Re quested Visits Authorized [id number] 1 1 Encounter Details Date Type Department Care Team (Late st Contact Info) Description 06/14/2024 7:30 AM EST Anesthesia Event [place] [address] Hosea Ardon MD [facility] [address] [place] [address] Joy Leyva CRNA [facility] [place] [address] Anesthesia Record Procedure Summary Procedure Name Responsible Anesthesiologist Anesthesia Start Time Anesthesia Stop Time @CABG, USING ARTERIAL GRAFT;SINGLE ARTERIAL GRAFT (WRVU 33.75) (Chest) Hosea Ardon MD 06/14/24 0730 06/14/24 1429 Events Date Time Event Comment 06/14/2024 0650 0730 AN Verify 0730 Start 0734 An Start Data 0749 An Induction 0754 An Intubation 0758 KAREN w/ REPORT 0829 Anesthesia Ready 0845 Procedure Start 0900 Sternotomy 0953 Heparin 1003 AN AORTIC CANNULA 1008 AN Venous Cannula 1022 CV Bypass init 1028 An Clamp start 1125 Rewarming 1209 CP Bypass Ended 1222 Protamine 1226 Decannulation 1259 Chest Closed 1411 an stop data 1429 Recovery or ICU Handoff Verna ent care was transferred to the destination unit staff after review of the patient's medical history, current anesthetic/surgical status and plan, according to the Provider Handoff Checklist. 1429 Stop Meds Name Total midazolam 4 mg fentaNYL 1,100 mcg propofoL 150 mg propofol INF 701.1 mg NORepinephrine 8 mcg NORepinephrine INF 24.49 mg rocuronium 200 mg heparin 30,000 Units protamine 220 mg tranexamic acid (TXA) 940 mg tranexamic acid (TXA) INF 640.56 mg esmolol 30 mg cefTRIAXone 2 g insulin regular INF 3.32 Units DOBUTamine INF 54.35 mg vasopressin 0.2 units/mL INF 0.16 Units niCARdipine 1 mg sodium chloride 0.9% 1,400 mL sodium chloride 0.9% 600 mL * Agents Name O2 Isoflurane (et) * Blood No blood administrations on file. Lines, Drains, and Airways Type Details Placement Removal PIV 06/02/24; 2200; 20 g auge; cephalic vein (lateral side of arm), right; OSH 06/02/24 2200 by Madison Carpenter RN Incision 06/14/24; 0848; midl ine; sternal; vertical 06/14/24 0848 by Danielle López RN Incision 06/14/24; 0849; Righ t; leg; laparoscopic punctures (specify) 06/14/24 0849 by Danielle López RN LDA Cath/EP Sheath 06/13/24; 0927; 8 Fr ench (Fr); Proximal, Right, Anterior; Femoral; Arterial 06/13/24 0927 by Elliott Houston, JAMIE 06/14/24 1606 by Zeferino Baker RN Intra-Aortic Balloon Pump 06/13/24; 0937; right femoral artery; 50; no swelling, no warmth, no drainage, no redness; 06/14/24; 1606 06/13/24 0937 by Elliott Houston RN 06/14/24 1606 by Zeferino Baker RN PIV 06/13/24; 1200; scpg-ady-iuvtic catheter system; 20 gauge; metacarpal vein (top of hand), right; removed per policy/procedure; 06/16/24; 1011 06/13/24 1200 by Beltran Nails RN 06/16/24 1011 by Renetta Solares Chest Tube 06/14/24; Chest Tube ; Left; mediastinum; 28fr right angle; 06/16/24; 1001 06/14/24 0000 by Danielle López RN 06/16/24 1001 by Candida Jolley RN Chest Tube 06/14/24; Chest Tube ; Midline; 24fr marcos; 06/17/24; 0915 06/14/24 0000 by Danielle López RN 06/17/24 0915 by Joel Shay RN Chest Tube 06/14/24; Chest Tube ; Right; mediastinum; 28fr straight; 06/16/24; 1001 06/14/24 0000 by Danielle López RN 06/16/24 1001 by Candida Jolley RN Arterial Line 06/14/24; 0744; radi al artery, right; 20 gauge; Anatomical Landmarks, Guidewire; continuous blood pressure monitoring, frequent blood gas measurement; Autumn KOENIG; Sterile Prep, Sterile Gloves; no longer indicated; 06/15/24; 1500 06/14/24 0744 by Hosea Ardon MD 06/15/24 1500 by Angeles Lwory RN Urethral Catheter 06/14/24; 0750; Surg shannan longer than 2 hours, Physician order, Need for intraoperative urine output monitoring; Immobility without alternative; indwelling catheter with core temperature probe; 100% silicone; 14; inserted at [facility]; 1; 10; 10; drainage bag; 06/18/24; 1120 06/14/24 0750 by Danielle López RN 06/18/24 1120 by Mildred Covarrubias RN ETT Mask Ventilation: Ad junct (2); ETT Type: Cuffed, Oral; ETT Size: 8 mm; Mac Blade: 4; Notes: Asleep, Pre-O2, Stylette; Attempts: 1; Laryngoscopy Grade: 1; ETT Placement Verified By: Capnometry, Visual; Secured at Teeth: 22 cm; Inserted by: Autumn KOENIG; Removal Date: 06/15/24 06/14/24 0754 by Hosea Ardon MD 06/15/24 0000 by Yoli Donaldson [employer]LLATE COURT CLERK Cental Line 06/14/24; 0827; Sing le Lumen; 9 Fr; internal jugular vein, right; Anatomical Landmarks, Ultrasound Guidance; Yes - US guidance used for evaluation of potential access sites, vessel patency and realtime visualization of needle entry with permanent recording.; Autumn KOENIG; KAREN; CVC Bundle Performed; 06/15/24; 1500 06/14/24 0827 by Hosea Ardon MD 06/15/24 1500 by Angeles Lowry, JAMIE PA Catheter 06/14/24; 0828; Trip le Lumen; standard thermodilution catheter; Right; internal jugular vein; CVC Bundle Performed; no longer indicated; Autumn KOENIG; 06/15/24; 1115 06/14/24 0828 by Hosea Ardon MD 06/15/24 1115 by Angeles Lowry, JAMIE Closed/Suction Drain 06/14/24; 0910; Rig ht; Leg; Bulb 06/14/24 0910 by Danielle López, JAMIE 06/14/24 1811 by Zeferino Baker, RN documented in this encounter Social History Tobacco Use Types Packs/Day Years Used Date Smoking Tobacco: Every Day Cigarettes Smokeless Tobacco: Never [facility] Utilities Answer Date Recorded In the past 12 months has [employer], [employer], oil, or water Prepared Response threatened to shut off services in your [...] in a halfway (including now)? No 06/03/2024 IPV Inpatient Questions [...] on file documented as of this encounter OR Notes * Anesthesia Postprocedure Evaluation - Hosea Ardon MD - 06/15/2024 1:43 PM EST Department of Anesthesiology Post-procedure Note Patient: George Mehta Procedure Summary Date: 06/14/24 Room / Location: [facility] OR [address] [place] [address] MAIN OR Anesthesia Start: 729 Anesthesia Stop: 1428 Procedures: @CABG, USING ARTERIAL GRAFT;SINGLE ARTERIAL GRAFT (WRVU 33.75) (Chest) @CABG, TWO VENOUS GRAFTS & ARTERIAL GRAFT (WRVU 7.93) (Chest) ENDOSCOPIC HARVEST VEIN(S) FOR CABG (WRVU 0.31) (Leg) @EXCISION OF MEDIASTINAL TUMOR (WRVU 19.55) (Chest) EXPLORATION AND OVERSEW ATRIAL APPENDAGE (WRVU 5.94) (Chest) Diagnosis: (CAD) Surgeons: Bobby Loja MD Responsible Provider: Hosea Ardon MD Anesthesia Type: general ASA Status: 4 All Anesthesia Providers: Anesthesiologist: Hosea Ardon MD NURSE PRACTITIONER: Joy Leyva CRNA Vitals Value Taken Time BP 115/65 06/14/242005 Temp 37.2 ??C (99 ??F) 06/15/24 1000 Pulse 92 06/15/24 1342 Resp 20 06/15/24 1342 SpO2 91 % 06/15/24 1342 Pain Level 7 06/15/24 1341 Vitals shown include unfiled device data. Patient Location: ICU Level of Consciousness: Awake and Alert Pain Management: Pain Being Addressed PONV: None Cardiovascular Status: At Baseline Respiratory Status: At Baseline Postoperative Fluid Status: Intravascular EUvolemia Possible Anesthetic Complications: NONE apparent at time of evaluation Final Primary Anesthesia Type: General (The anesthetic type performed was the same as planned.) Comments: Ambulating around the unit. Pleased with care Motivated to get home. HOSEA ARDON MD * Anesthesia Preprocedure Evaluation - Hosea Ardon MD - 06/13/2024 7:13 PM EST Images from the original note were not included. Pre-Anesthesia Evaluation for: George Mehta a 69 y.o. male. Procedure(s): @CABG, USING ARTERIAL GRAFT;SINGLE ARTERIAL GRAFT (WRVU 33.75) @CABG, TWO VENOUS GRAFTS & ARTERIAL GRAFT (WRVU 7.93) ENDOSCOPIC HARVEST VEIN(S) FOR CABG (WRVU 0.31) Patient Active Problem List Diagnosis Date Noted Cardiac resynchronization therapy defibrillator (BALLOON MAKER-D) - [employer] Amplia 06/09/2024 Cardiomyopathy, ischemic 06/09/2024 Acute on chronic heart failure with reduced ejection fraction (HFrEF, <= 40%) 06/05/2024 Coronary artery disease involving atka coronary artery of atka heart without angina pectoris 06/05/2024 Type 2 diabetes mellitus 06/05/2024 *STEMI (ST elevation myocardial infarction) 06/02/2024 No past medical history on file. No past surgical history on file. Social History Tobacco Use Smoking status: Every Day Current packs/day: 0.25 Types: Cigarettes Smokeless tobacco: Never Substance Use Topics Alcohol use: Not on file Social History Substance and Sexual Activity Drug Use Not on file No Known Allergies Medications: MAR and/or home medications have been reviewed. Physical Exam: Preprocedure Vitals Current as of 06/13/241912 BP: Pulse: 67 Resp: 22 SpO2: 94 Temp: 36.7 ??C (98.1 ??F) Height: 167.6 cm (5' 6) (06/02/24) Weight: 94 kg (207 lb 3.7 oz) (06/13/24) BMI: 33.45 IBW: 63.8 kg (140 lb 9.2 oz) Last edited 06/13/24 1800 by AL Airway Assessment: Mallampati: III Cardiovascular Assessment: Rhythm: regular (-) murmur Pulmonary Assessment: breath sounds clear to auscultation (-) wheezes and rales Dental Assessment: - normal exam Misc Assessment: IV access: Peripheral line Other exam findings: Very poor dentition, nothing loose. Last Filed Perioperative Cognitive Screening None Anesthesia Plan: ASA 4 general, with a(n) intravenous induction 69 y.o. 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 Preoperative IABP has been placed No pressors at this time, on a heparin drip. No evidence today of shock or active CHF reported by chart review (he is reported as 14 liters negative with diuresis, but weight is the same at 94Kg). His opening LVEDP was 40 with a BNP of 1628. Heis on GDMT and lasix this 11 day admission. Plan for OR Arterial line PA line KAREN Prelim note, will finalize and get consent in the AM. Cardiac MRI 06/07/24 IMPRESSION - Findings consistent with an ischemic [...] - Mildly dilated left ventricle size with [id number]-[id number] decreased LV systolic function. LV ejection fraction is 26%. Global hypokinesis with akinesis of the basal to mid anterolateral segments. No LV thrombus. - Normal right ventricle size and shape with normal RV systolic function. RV ejection fraction is 53%. - No significant valvular abnormalities. CXR 06/13/2024 1. Infrarenal aortic balloon pump tip at the aortic arch. 2. Stable cardiomegaly. No acute cardiopulmonary abnormality. TTE Name: GEORGE MEHTA Study Date: 06/03/2024 06:52 AM Reason For Study: STEMI Exam Location: [facility]. Interpretation Summary -Left ventricular systolic function is [...] a fellow performed study of today's date). Recent Results (from the past 24 hour(s)) -POC, GLUCOSE: Result Value Ref Range Glucometer, POC 141 65 - 199 mg/dL -Basic Metabolic Panel: Result Value Ref Range Glucose 121 65 - 199 mg/dL Blood Urea Nitrogen 21 (H) 10 - 20 mg/dL Creatinine 1.07 0.80 - 1.50 mg/dL Sodium 136 135 - 145 mMol/L Potassium 3.9 3.5 - 5.0 mMol/L Chloride 99 98 - 107 mMol/L Carbon Dioxide 27 22 - 31 mMol/L Anion Gap 10 5 - 15 mMol/L Calcium 9.7 8.5 - 10.5 mg/dL Est Glomerular Filtration Rate - Male 76 mL/min/1.73 m?? -Magnesium: Result Value Ref Range Magnesium 0.78 0.69 - 1.07 mMol/L -CBC (with Diff): Result Value Ref Range White Blood Cell 9.98 (H) 4.00 - 9.50 x10(3)/mcL Red Blood Cell 5.11 4.58 - 5.54 x10(6)/mcL Hemoglobin 15.3 13.7 - 16.5 g/dL Hematocrit 47.1 40.5 - 48.5 % Mean Cell Volume 92.2 82.9 - 93.1 fL Mean Cell Hemoglobin 29.9 27.5 - 32.1 pg Mean Cell Hemoglobin Concentration 32.5 32.0 - 35.7 g/dL Platelet 194 145 - 357 x10(3)/mcL Mean Platelet Volume 9.7 7.6 - 12.9 fL RDW Standard Deviation 47.5 (H) 36.0 - 45.0 fL RDW coefficient of variation 13.8 11.4 - 13.8 % NRBC% auto 0.0 % NRBC Absolute <0.01 <0.01 x10(3)/mcL Neutrophil % 48.8 % Neutrophil Absolute (ANC) - Automated 4.87 1.70 - 6.10 x10(3)/mcL Lymph % 35.3 % Lymph Absolute 3.52 (H) 0.90 - 3.20 x10(3)/mcL Monocyte % 10.1 % Monocyte Absolute 1.01 (H) 0.30 - 0.90 x10(3)/mcL Eos % 4.4 % Eos Absolute 0.44 (H) 0.00 - 0.40 x10(3)/mcL Basophil % 0.9 % Baso Absolute 0.09 0.00 - 0.10 x10(3)/mcL Immature Gran % 0.5 % Immature Gran Absolute 0.05 (H) 0.00 - 0.04 x10(3)/mcL -Heparin (unfractionated) Level: Result Value Ref Range UF Heparin 0.60 IU/mL -POC, GLUCOSE: Result Value Ref Range Glucometer, POC 99 65 - 199 mg/dL -POC, GLUCOSE: Result Value Ref Range Glucometer, POC 126 65 - 199 mg/dL -Potassium: Result Value Ref Range Potassium 4.5 3.5 - 5.0 mMol/L -POC, GLUCOSE: Result Value Ref Range Glucometer, POC 178 65 - 199 mg/dL -Type and screen ([facility]): Result Value Ref Range ABORH Type O POSITIVE PATIENT HISTORY Not Found Expires at [id number] on: 06/16/2024 ANTIBODY SCREEN AUTOMATED Negative T&S only valid at [facility] -POC, GLUCOSE: Result Value Ref Range Glucometer, POC 216 (H) 65 - 199 mg/dL -ABORH RECHECK: Result Value Ref Range ABORH Recheck O POSITIVE -Heparin (unfractionated) Level: Result Value Ref Range UF Heparin 0.76 IU/mL Region - Intrathoracic Cardiac Informed Consent: Plan discussed with NURSE PRACTITIONER. Anesthesia Screening documented in this encounter Plan of Treatment Not on file documented as of this encounter Visit Diagnoses Not on filedocumented in this encounter Administered Medications Inactive Administered Medications - up to 3 most recent administrations Medication Order MAR Action Action Date Dose Rate Site cefTRIAXone (Rocephin) injection Intravenous, PRN, Starting on Fri06/14/24 at 0819, Until Fri06/14/24 at 1431, Anesthesia Intra-op, Routine Given 06/14/2024 8:19 AM EST 2 g DOBUTamine (Dobutrex) (4,000 mcg/mL) in dextrose 5% 250 mL infusion Intravenous, CONTINUOUS PRN, Starting on Fri06/14/24 at 1137, Until Fri06/14/24 at 1431, Anesthesia Intra-op Rate/Dose Change 06/14/2024 12:21 PM EST 3 mcg/kg/min 4.239 mL/hr Rate/Dose Change 06/14/2024 12:00 PM EST 4 mcg/kg/min 5.65 2 mL/hr Rate/Dose Change 06/14/2024 11:39 AM EST 5 mcg/kg/min 7.06 5 mL/hr esmoloL (Brevibloc) (10 mg/mL) injection Intravenous, PRN, Starting on Fri06/14/24 at 0756, Until Fri06/14/24 at 1431, Anesthesia Intra-op, Routine Given 06/14/2024 8:10 AM EST 10 mg Given 06/14/2024 8:01 AM EST 10 mg Given 06/14/2024 7:56 AM EST 10 mg fentaNYL (pf) (50 mcg/mL) multi-dose injection Intravenous, PRN, Starting on Fri06/14/24 at 0742, Until Fri06/14/24 at 1431, Anesthesia Intra-op, Routine Given 06/14/2024 12:29 PM EST 100 mcg Given 06/14/2024 12:11 PM EST 250 mcg Given 06/14/2024 9:00 AM EST 250 mcg heparin (porcine) (1,000 units/mL) injection Intravenous, PRN, Starting on Fri06/14/24 at 0943, Until Fri06/14/24 at 1431, Anesthesia Intra-op, Routine Given 06/14/2024 9:53 AM EST 25,000 Un its Given 06/14/2024 9:43 AM EST 5,000 Units insulin regular (Myxredlin) (1 unit/mL) in sodium chloride 0.9% 100 mL infusion Intravenous, CONTINUOUS PRN, Starting on Fri06/14/24 at 1110, Until Fri06/14/24 at 1431, Anesthesia Intra-op, Routine New Bag 06/14/2024 11:10 AM EST 1 Units/hr 1 mL/hr midazolam (pf) (Versed) (1 mg/mL) multi-dose injection Intravenous, PRN, Starting on Fri06/14/24 at 0742, Until Fri06/14/24 at 1431, Anesthesia Intra-op, Routine Given 06/14/2024 11:34 AM EST 2 mg Given 06/14/2024 7:42 AM EST 2 mg niCARdipine (Cardene) injection Intravenous, PRN, Starting on Fri06/14/24 at 1224, Until Fri06/14/24 at 1431, Anesthesia Intra-op, Routine Given 06/14/2024 1:02 PM EST 0.2 mg Given 06/14/2024 12:57 PM EST 0.2 mg Given 06/14/2024 12:53 PM EST 0.2 mg NORepinephrine (Levophed) (16 mcg/mL) in dextrose 5% 250 mL infusion Intravenous, CONTINUOUS PRN, Starting on Fri06/14/24 at 0739, Until Fri06/14/24 at 1431, Anesthesia Intra-op, Routine Restarted 06/14/2024 12:00 PM EST 2 mcg/kg/min 706.5 mL/hr Restarted 06/14/2024 11:48 AM EST 2 mcg/kg/min 706.5 mL/h r Restarted 06/14/2024 10:05 AM EST 1 mcg/kg/min 353.25 mL/ hr NORepinephrine (Levophed) injection Intravenous, PRN, Starting on Fri06/14/24 at 0905, Until Fri06/14/24 at 1431, Anesthesia Intra-op, Routine Given 06/14/2024 9:05 AM EST 8 mcg propofoL (Diprivan) (10 mg/mL) infusion Intravenous, CONTINUOUS PRN, Starting on Fri06/14/24 at 1153, Until Fri06/14/24 at 1431, Anesthesia Intra-op, Routine Rate/Dose Change 06/14/2024 12:54 PM EST 65 mcg/kg/min 29.64 mL/hr New Bag 06/14/2024 11:53 AM EST 50 mcg/kg/min 22.8 mL/h r propofoL (Diprivan) 10 mg/mL bolus injection (Anesthesia) Intravenous, PRN, Starting on Fri06/14/24 at 0751, Until Fri06/14/24 at 1431, Anesthesia Intra-op Given 06/14/2024 9:00 AM EST 50 mg Given 06/14/2024 7:51 AM EST 100 mg protamine (10 mg/mL) injection Intravenous, PRN, Starting on Fri06/14/24 at 1221, Until Fri06/14/24 at 1431, Anesthesia Intra-op, Routine Given 06/14/2024 12:21 PM EST 220 mg rocuronium (Zemuron) (10 mg/mL) multi-dose injection Intravenous, PRN, Starting on Fri06/14/24 at 0844, Until Fri06/14/24 at 1431, Anesthesia Intra-op, Routine Given 06/14/2024 11:34 AM EST 50 mg Given 06/14/2024 9:40 AM EST 50 mg Given 06/14/2024 8:44 AM EST 20 mg sodium chloride 0.9% infusion Intravenous, CONTINUOUS PRN, Starting on Fri06/14/24 at 0829, Until Fri06/14/24 at 1431, Anesthesia Intra-op New Bag 06/14/2024 8:29 AM EST sodium chloride 0.9% infusion Intravenous, CONTINUOUS PRN, Starting on Fri06/14/24 at 0734, Until Fri06/14/24 at 1431, Anesthesia Intra-op New Bag 06/14/2024 7:34 AM EST tranexamic acid (Cyklokapron) (100 mg/mL) infusion Intravenous, CONTINUOUS PRN, Starting on Fri06/14/24 at 0741, Until Fri06/14/24 at 1431, Anesthesia Intra-op, Routine New Bag 06/14/2024 7:41 AM EST 1 mg/kg/hr 0.942 mL/hr tranexamic acid (Cyklokapron) (100 mg/mL) IV bolus Intravenous, Administer over 8 Hours, PRN, Starting on Fri06/14/24 at 0741, Until Fri06/14/24 at 1431, Anesthesia Intra-op, Routine Given 06/14/2024 7:41 AM EST 940 mg vasopressin (VASOSTRICT) 0.2 units/mL IV infusion (Anesthesia) Intravenous, CONTINUOUS PRN, Starting on Fri06/14/24 at 1241, Until Fri06/14/24 at 1431 Rate/Dose Change 06/14/2024 12:44 PM EST 0.02 Units/min 6 mL/hr New Bag 06/14/2024 12:41 PM EST 0.04 Units/min 12 mL/hr documented in this encounter Care Teams Science Manager Relationship Specialty Start Date End Date Mauro Berumen MD [address] [place] [address] PCP - General Family Medicine 06/02/24 documented as of this encounter
--- OUTSIDE RECORDS SUMMARY | 2024-08-04 20:32 | XMS_ITS | Encounter Summary ---
Author Organization [facility] [place] [address] Care Team Providers Care Mat Inspector Name Role Phone Mauro Berumen MD Primary Care Provider [phone] Reason for Visit * Auth/Cert Specialty Diagnoses / Procedures Referred By Carroll t Referred To Contact Diagnoses STEMI (ST elevation myocardial infarction) STEMI Procedures CARDIAC CATHETERIZATION EMERGENCY Delroy Monterroso MD [facility] [place] [address] [facility] Referral ID Status Reason Start Date Expiration Date Visits Re quested Visits Authorized [id number] 1 1 Encounter Details Date Type Department Care Team (Late st Contact Info) Description 06/14/2024 7:30 AM EST - 06/14/2024 2:08 PM EST Surgery [place] [address] Bobby Loja MD [facility] [place] [address] @CABG, USING ARTERIAL GRAFT;SINGLE ARTERIAL GRAFT (WRVU 33.75) Social History Tobacco Use Types Packs/Day Years Used Date Smoking Tobacco: Every Day Cigarettes Smokeless Tobacco: Never Tobacco Cessation:Ready to Q uit: No; Counseling Given: Yes [facility] Utilities Answer Date Recorded In the past 12 months has e electric, gas, oil, or water company [...] any time in the past 12 m [facility], were you homeless or living in a [...] Sign Reading Time Taken Comments Blood Pressure 138/86 06/13/2024 9:45 AM EST Pulse 72 06/14/2024 7:00 AM EST Temperature 37 ??C (98.6 ??F) 06/14/2024 6:00 AM EST Respiratory Rate 22 06/14/2024 7:00 AM EST Oxygen Saturation 94% 06/14/2024 7:00 AM EST Inhaled Oxygen Concentration - - Weight 94.2 kg (207 lb 10.8 oz) 06/14/2024 6:00 AM EST Height 167.6 cm (5' 6) 06/02/2024 10:5 9 PM EDT Body Mass Index 34.15 06/02/2024 10:59 PM EDT documented in this encounter Discharge Summaries * Keila Hanley APRN - 06/21/2024 8:31 AM EST Inpatient - Discharge Summary Patient Name: George Mehta Patient Age: 69 y.o. Birthdate: 1955 Language: Ugandan Race: Choose not to Disclose Ethnicity: Not nor Admit Date: 06/02/2024 Discharge Date: 06/21/2024 Attending Physician: Bobby Loja MD Follow-up Recommendations for Providers: Please continue routine management of cardiovascular risk factors including blood pressure, lipids,glucose, etc. Please note any changes to medications. Patient to follow up with PCP, Mauro Berumen MD, in 1-2 weeks. Patient to follow up with Marble Carver, Kristen Cardenas in 2-3 weeks. Patient to follow up with Cardiac Surgeon, Dr. Bobby Loja, in 4 wks. Inpatient Provider Contact Information: [facility] Section of Cardiac Surgery [facility] [address] FAX [phone] Discharge Diagnoses (Hospital Problems) Primary Diagnoses: STEMI [...] (WRVU 33.75) performed by Bobby Loja MD [facility] MAIN OR PRO CABG, ARTERY-VEIN, TWO N/A 06/14/2024 @CABG, TWO VENOUS GRAFTS & ARTERIAL GRAFT (WRVU 7.93) performed by Bobby Loja MD at [facility] OR PRO ENDOSCOPY W/VIDEO-ASST VEIN HARVEST, CABG N/A 06/14/2024 ENDOSCOPIC HARVEST VEIN(S) FOR CABG (WRVU 0.31) performed by Bobby Loja MD at [facility] MAIN OR PRO EXC MEDIASTINAL TUMOR N/A 06/14/2024 @EXCISION OF MEDIASTINAL TUMOR (WRVU 19.55) performed by Bobby Loja MD at [facility] MAIN OR PRO INSERT INTRA-AORTIC BALLOON ASST DEVICE PERCUTANEOUS N/A 06/13/2024 @INSERTION OF IABP,PERCUTANEOUS (WRVU 4.84) performed by Nuha Shen MD at [facility] CATH LABS PRO UNLISTED CARDIAC SURG PROCEDURE N/A 06/14/2024 EXPLORATION AND OVERSEW ATRIAL APPENDAGE (WRVU 5.94) performed by Bobby Loja MD at [facility] [place] Prior To Admission Medications Medications [...] y.o. male with a PMHx of previous AR s/p PCI x3, ICM/HFrEF (LVEF 30%) s/p ICD, DMII, HTN, HLD, remote melanoma, and smoker who presented to [facility] last night via EMS after developing acute, severe chest pain while watching TV. Patient was ruled in for STEMI, given TNK, ASA, plavix, heparin gtt, and [place] [facility] [place]. LHC demonstrated severely calcified left coronary system with notable LCx 75/80% lesions and PHOTO FINISH PHOTOGRAPHER OM1 with ISR with collateral retrograde filling, [...] Hospital Course: George Mehta was admitted to [facility] on 06/02/2024 via the CardiologyService with an anterior STEMI after receiving lytics at OSH. He was brought to the tin can laborer which showed severely calcified left coronary system with notable LCx 75/80% lesions and PHOTO FINISH PHOTOGRAPHER OM1 with ISR with collateral retrograde filling, [...] 2 tablespoons of dried fruit. Milk and vo-vlgha-bxwoj yogurt have 15 grams of carbs in a serving. A serving is 1 cup of milk or 3/4 cup (6 oz) of xm-lgvxj-rknin yogurt. Starchy vegetables have 15 grams of carbs in a serving. A serving is ?? cup of mashed potatoes or sweet potato; 1 cup winter squash; ?? of a small baked potato; ?? cup of cooked beans; or ?? cup cooked corn or green peas. Learn how much carbs to eat each day and at each meal. A dietitian or american board certified orthotist can teach you how to keep track [...] Bobby Loja and/or the Cardiac Surgery Physician Onshore Diver Team may be reached at . Weight: [...] Dr. Bobby Loja. You may use a [place] Track or treadmill but avoid any pulling [...] friends, go to a movie, go to yazidi, etc. Heavy activities: No hunting, skiing, jogging, [...] should resume a low fat, low cholesterol, Irish Heart Association Diet/Diabetic diet. Driving: No driving [...] while being managed by your PCP and/or Marble Carver. For future medication refills, please refer to your PCP and/or Marble Carver after your discharge from our service. Thank you REMOVE CHEST TUBE SUTURES ON OR AFTER 06/24/2024 Home oxygen therapy: N/A Follow up appointments: You should follow up with your PCP, Mauro Berumen MD, in 1-2 weeks. You should follow up with your Marble Carver, Dr CARDENAS. You have an appointment with your Cardiac Surgeon, Dr. Bobby Loja, in 4 wks. Cardiac Rehabilitation: George Mehta was seen today regarding participation in the outpatient Phase 2 Cardiac Rehabilitation at [facility]. The patient agrees to a referral to this program. The referral will be sent at discharge and the patient should be contacted by the program within 1-2 weeks from discharge. Future Appointments and Orders Future Orders Complete By Expires Referral to Cardiac Rehab [DRN340 Custom] As directed Process Instructions: If no progress note charted, please enter Clinical details in comments. Scheduling Instructions: Questions: My question or request is: s/p CABG- cardiac rehab at [facility] Referral to Home Health [REF34 Custom] As directed Process Instructions: If no progress note charted, please enter Clinical details in comments. Scheduling Instructions: Comments: Please evaluate George Mehta for admission to Home Health. [address] [facility] [address] (home) Date of : 1955 Inpatient DOCUMENTATION FOR VNA SERVICES (INCLUDING THOSE PATIENTS WITH MEDICARE COVERAGE REQUIRINGHOME VNA SERVICES AND/OR HOSPICE SERVICES) PATIENT'S LOCATION: George Mehta [address] [facility] [address] (home) Telephone Information: Pot Maker's Name: self In discussion with the attending physician, it is certified that this patient is under their care and that they, or a Nurse Practitioner, or Physician Onshore Diver who is working directly with them, hada [...] for services as follows: HOME HEALTH AGENCY: [facility] [address] [place] [id number] RN orders: Cardiopulmonary assessment, incisional assessment, assess [...] issues please call the Cardiology Office at [phone] FOR MEDICARE ONLY: (please delete this section [...] care: As above. Signed: KEILA HANLEY APRN [facility] Section of Cardiac Surgery [facility] [place] [address] FAX [phone] Date: 06/21/2024 CC: MD Antonino Tinajero Joshua R, PA [address] [place] [address] [place] [address] documented in this encounter Discharge Instructions * [...] 2 tablespoons of dried fruit. Milk and tz-dexcm-iruay yogurt have 15 grams of carbs in a serving. A serving is 1 cup of milk or 3/4 cup (6 oz) of jl-uhvoc-oczto yogurt. Starchy vegetables have 15 grams of carbs in a serving. A serving is ?? cup of mashed potatoes or sweet potato; 1 cup winter squash; ?? of a small baked potato; ?? cup of cooked beans; or ?? cup cooked corn or green peas. Learn how much carbs to eat each day and at each meal. A dietitian or american board certified orthotist can teach you how to keep track [...] Bobby Loja and/or the Cardiac Surgery Physician Onshore Diver Team may be reached at . Weight: [...] Dr. Bobby Loja. You may use a [place] Track or treadmill but avoid any pulling [...] friends, go to a movie, go to yazidi, etc. Heavy activities: No hunting, skiing, jogging, [...] should resume a low fat, low cholesterol, Irish Heart Association Diet/Diabetic diet. Driving: No driving [...] while being managed by your PCP and/or Marble Carver. For future medication refills, please refer to your PCP and/or Marble Carver after your discharge from our service. Thank you REMOVE CHEST TUBE SUTURES ON OR AFTER 06/24/2024 Home oxygen therapy: N/A Follow up appointments: You should follow up with your PCP, Mauro Berumen MD, in 1-2 weeks. You should follow up with your Marble Carver, Dr CARDENAS. You have an appointment with your Cardiac Surgeon, Dr. Bobby Loja, in 4 wks. Cardiac Rehabilitation: George Mehta was seen today regarding participation in the outpatient Phase 2 Cardiac Rehabilitation at [facility]. The patient agrees to a referral to [...] RN - 06/21/2024 8:32 AM EST During [facility] Purposeful Rounding, an assessment of your patient's venous access was performed [facility] theVascular Access Service. The following tasks were [...] RN - 06/21/2024 8:31 AM EST During [facility] Purposeful Rounding, an assessment of your patient's venous access was performed [facility] theVascular Access Service. The following tasks were [...] PRN or weekly) [] Other * Alejandra Baumann, LINSEED OIL PRESS TENDER - 06/21/2024 7:05 AM EST Follow Up [...] MARIALUISA clipping. PMH of chronic HFrEF s/p NEWSAGENT/ICD, IDDM2, HTN, HLD, remote melanoma, active smoker. [...] 2 tablespoons of dried fruit. Milk and sv-kogya-ohwhn yogurt have 15 grams of carbs in a serving. A serving is 1 cup of milk or 3/4 cup (6 oz) of uh-tjpto-figud yogurt. Starchy vegetables have 15 grams of carbs in a serving. A serving is ?? cup of mashed potatoes or sweet potato; 1 cup winter squash; ?? of a small baked potato; ?? cup of cooked beans; or ?? cup cooked corn or green peas. Learn how much carbs to eat each day and at each meal. A dietitian or american board certified orthotist can teach you how to keep track [...] cheese, and peanut butter. Alejandra Baumann APRN [facility] Endocrinology Diabetes Management Pager [phone] Weekends please page [phone] * Eric Packer PA - 06/20/2024 7:44 AM EST Cardiac Surgery Progress Note George Mehta is a 69 y.o. male with a history of CAD s/p multiple PCI who presented with an anterior STEMI and was given lytics. Cath showed MV CAD without culprit vessel. He is now 6 Days Post-OpCABGx3 and MARIALUISA clipping. PMH of chronic HFrEF s/p NEWSAGENT/ICD, IDDM2, HTN, HLD, remote melanoma, active smoker. 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 06/20/2024 Between the hours of 1800 - 0600 and on the weekends please page [phone]. * Alejandra Baumann APRN - 06/20/2024 7:21 AM EST Follow Up Diabetes Consult Patient Interview Blood glucose values and insulin use reviewed. customer advisor specialist BG to 59 despite decrease in glargine [...] Labs 06/20/24 0710 06/20/24 0032 06/20/24 0002 06/19/24201406/19/24 1801 06/19/24 1651 06/19/24 1237 06/19/24 1120 [...] MARIALUISA clipping. PMH of chronic HFrEF s/p NEWSAGENT/ICD, IDDM2, HTN, HLD, remote melanoma, active smoker. 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 Milk and io-nfjwf-nqlyt yogurt have 15 grams of carbs in a serving. A serving is 1 cup of milk or 3/4 cup (6 oz) of mo-dpaop-ozlzm yogurt. Starchy vegetables have 15 grams of carbs in a serving. A serving is ?? cup of mashed potatoes or sweet potato; 1 cup winter squash; ?? of a small baked potato; ?? cup of cooked beans; or ?? cup cooked corn or green peas. Learn how much carbs to eat each day and at each meal. A dietitian or american board certified orthotist can teach you how to keep track [...] MARIALUISA clipping. PMH of chronic HFrEF s/p NEWSAGENT/ICD, IDDM2, HTN, HLD, remote melanoma, active smoker. 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 Jeffy Hood MD 06/19/2024 Between the hours of 1800 - 0600 and on the weekends please page [phone]. * Alejandra Baumann APRN - 06/19/2024 7:09 AM EST Follow Up Diabetes Consult Patient Interview Blood glucose values and insulin use reviewed. Jardiance added back yesterday, explosives handler low BGto 51. Glargine reduced to 45 [...] MARIALUISA clipping. PMH of chronic HFrEF s/p NEWSAGENT/ICD, IDDM2, HTN, HLD, remote melanoma, active smoker. Jardiance added back yesterday. customer advisor specialist low BG to 51. Glargine reduced to [...] Your Long-acting insulin is called Tresiba Take 45 units of long acting insulin [...] 2 tablespoons of dried fruit. Milk and mj-qqcyo-fekce yogurt have 15 grams of carbs in a serving. A serving is 1 cup of milk or 3/4 cup (6 oz) of cm-keyqz-judko yogurt. Starchy vegetables have 15 grams of carbs in a serving. A serving is ?? cup of mashed potatoes or sweet potato; 1 cup winter squash; ?? of a small baked potato; ?? cup of cooked beans; or ?? cup cooked corn or green peas. Learn how much carbs to eat each day and at each meal. A dietitian or american board certified orthotist can teach you how to keep track [...] cheese, and peanut butter. Alejandra Baumann APRN [facility] Endocrinology Diabetes Management Pager [phone] Weekends please page [phone] * Hilda Resendez PTA - 06/18/2024 9:19 AM EST Physical Therapy Note 2 Patient profile: George Mehta is a 69 y.o. male with a history of CAD s/p multiple PCI who presented with an anterior STEMI and was given lytics. Cath showed MV CAD without culprit vessel. He is now 1 Day Post-Op CABGx3 and MARIALUISA clipping. PMH of chronic HFrEF s/p NEWSAGENT/ICD, IDDM2, HTN, HLD, remote melanoma, active smoker. Interval History: Per last cardiac surgery note on 06/18/2024 Cr improved 1.4 on lasix 40 iv bid -1.5L, made 2.5L urine Coreg, entresto restarted Floor status Social History: Pt lives with his in a 1 level apartment with no steps to enter. 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 He sleeps in a recliner at baseline. Precautions/Special Considerations: Sternal precautions, PIV, at risk to fall, PPM Mobility and Positioning Recommendations: Pt to utilize no AD, supervision for ambulation and transfers w/ technical staff assistant as able. Please encourage up to chair [...] least restrictive device Time IN / OUT: 6059-7159 Total Time: 11 minutes; TEF 1 Hilda Resendez PTA Pager: [phone] Physical Therapy Inpatient Rehabilitation Department * Keila Hanley APRN - 06/18/2024 8:48 AM EST Cardiac Surgery Progress Note George Mehta is a 69 y.o. male with a history of CAD s/p multiple PCI who presented with an anterior STEMI and was given lytics. Cath showed MV CAD without culprit vessel. He is now 4 Days Post-OpCABGx3 and MARIALUISA clipping. PMH of chronic HFrEF s/p NEWSAGENT/ICD, IDDM2, HTN, HLD, remote melanoma, active smoker. [...] sternotomy dressing CDI, saphenectomy dressing CDi Tubes/Lines/Drains: Cortney, RAYMOND Assessment/Plan: 69 y.o. 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 Restarting jardiance #Active smoker Duoneb prn Dispo: CVCC, Full code, tx to floor Discussed with attending surgeon on rounds this morning. KEILA HANLEY, JOSÉ ANTONIO 06/18/2024 Between the hours of 1800 - 0600 and on the weekends please page [phone]. * Alejandra Baumann APRN - 06/17/2024 3:29 [...] MARIALUISA clipping. PMH of chronic HFrEF s/p NEWSAGENT/ICD, IDDM2, HTN, HLD, remote melanoma, active smoker. [...] based on ISF 20 Alejandra Baumann APRN [facility] Endocrinology Diabetes Management Pager [phone] Weekends please page [phone] 35 minutes were spent over the course [...] MARIALUISA clipping. PMH of chronic HFrEF s/p NEWSAGENT/ICD, IDDM2, HTN, HLD, remote melanoma, active smoker. [...] In: 1140 [P.O.:870; I.V.:20] Out: 1428 [Urine:1365] Med marcos 30/10 Admit weight: 102 kg Current weight: [...] saphenectomy dressing CDi Tubes/Lines/Drains: Mediastinal Cortney rodríguez, PIV Assessment/Plan: 69 y.o. male 3 Days Post-Op [...] attending surgeon on rounds this morning. KEILA HANLEY APRN 06/17/2024 Between the hours of 1800 - 0600 and on the weekends please page [phone]. * Raymond Carlton MD - 06/16/2024 1:11 PM EST CARDIAC CRITICAL CARE ATTENDING STAFF PROGRESS NOTE Patient seen and examined. George Mehta is a 69 y.o. male with: Active Hospital Problems Diagnosis STEMI (ST elevation myocardial infarction) Cardiac resynchronization therapy defibrillator (NEWSAGENT-D) - Medtronic Amplia Cardiomyopathy, ischemic Acute on chronic heart failure with reduced ejection fraction (HFrEF, <= 40%) Coronary artery disease involving habematolel coronary artery of habematolel heart without angina pectoris Type 2 diabetes [...] and documentation on the unit. * Wen Gonzáles DT - 06/16/2024 11:40 AM EST Nutrition Services Note - Low Nutrition Acuity George Mehta is a 69 y.o. male Reason for intervention: follow up Nutrition Plan: Continue current diet Encourage good po Insulin noted Previous lasix noted Monitor wt Support and encouragement provided Patient screened for f/u and fiction writer met pt at bedside. Pt states his [...] unless consulted in the interim. RICHA Simmons Sports Intern * Octaviano Horvath PA - 06/16/2024 8:07 AM EST Cardiac Surgery Progress Note George Mehta is a 69 y.o. male with a history of CAD s/p multiple PCI who presented with an anterior STEMI and was given lytics. Cath showed MV CAD without culprit vessel. He is now 2 Days Post-OpCABGx3 and MARIALUISA clipping. PMH of chronic HFrEF s/p NEWSAGENT/ICD, IDDM2, HTN, HLD, remote melanoma, active smoker. [...] PAP 30s/20s CVP 13-15 Drips: Insulin 06/15 0701 - 06/16 0700 In: 2742.9 [P.O.:2320; I.V.:412.9] Out: 1015 [Urine:625] [...] 0600 and on the weekends please page [phone]. * Jono Fernandez, PT - 06/15/2024 4:09 PM EST Physical Therapy Evaluation Patient profile: George Mehta is a 69 y.o. male with a history of CAD s/p multiple PCI who presented with an anterior STEMI and was given lytics. Cath showed MV CAD without culprit vessel. He is now 1 Day Post-Op CABGx3 and MARIALUISA clipping. PMH of chronic HFrEF s/p NEWSAGENT/ICD, IDDM2, HTN, HLD, remote melanoma, active smoker. 24h Events: From OR on Dobutamine IABP removed Bedrest ended ~2100, sedation weaned Extubated ~0200 Dobutamine weaned to 1 this morning, CI 2.6, shut off and repeat CI 2.4 Social History: Pt lives with his in a 1 level apartment with no steps to enter. 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 He sleeps [...] outlined inthis evaluation. JONO FERNANDEZ, PT Pager: [phone] Physical Therapy Inpatient Rehabilitation Department Time IN / OUT: 9047-8092 Total Time: 33 (eval) minutes * Alejandra Baumann APRN - 06/15/2024 11:39 AM EST Follow Up Diabetes Consult Patient Interview Blood glucose values and insulin use reviewed. Pt remains on an insulin drip today following LAFNs2hey MARIALUISA clipping. George continues to complain of [...] MARIALUISA clipping. PMH of chronic HFrEF s/p NEWSAGENT/ICD, IDDM2, HTN, HLD, remote melanoma, active smoker. [...] based on ISF 20 Alejandra Baumann APRN [facility] Endocrinology Diabetes Management Pager [phone] Weekends please page [phone] 50 minutes were spent over the course [...] elevation myocardial infarction) Cardiac resynchronization therapy defibrillator (NEWSAGENT-D) - Medtronic Amplia Cardiomyopathy, ischemic Acute on chronic heart failure with reduced ejection fraction (HFrEF, <= 40%) Coronary artery disease involving habematolel coronary artery of habematolel heart without angina pectoris Type 2 diabetes [...] ??C (99.7 ??F)] Heart Rate: [80-107] Resp: [-24] BP: (115)/(65) SpO2: [92 %-100 %] Heart Rate from SpO2: [81 bpm-131 bpm] Physical Exam Alert, pleasant, comfortable Non-labored respirations. Rales at bases Regular paced rhythm. 2+ pitting edema with pigmented changes of vascular insufficiency Cardiac Critical Care Medicine Staff Progress Note 69 y.o. male with h/o DM, CAD with prior PCI, NEWSAGENT-D who presented with crushing chest pain, found [...] MARIALUISA clipping. PMH of chronic HFrEF s/p NEWSAGENT/ICD, IDDM2, HTN, HLD, remote melanoma, active smoker. [...] sternotomy dressing CDI, saphenectomy dressing CDi Tubes/Lines/Drains: [place]asford, RIJ, A-line, Mediastinal marcos and bilateral pleural [...] 0600 and on the weekends please page [phone]. * Yoli Donaldson RCP - 06/15/2024 5:35 AM EST AMV Protocol: [...] 2L NC. Yoli Donaldson RCP * Loraine Lowe MD - 06/14/2024 6:12 PM EST Cardiac Critical Care Medicine Staff Progress Note 69 y.o. male with h/o DM, CAD with prior PCI, NEWSAGENT-D who presented with crushing chest pain, found [...] Lytes Recent Labs 06/14/24 0012 06/13/24 0748 06/13/246 06/12/24 1419 06/12/24 0303 NA 135 -- [...] with h/o DM, CAD with prior PCI, NEWSAGENT-D who presented with crushing chest pain, found [...] to work towards waking/PSBT later tonight * Puala Treviño PA - 06/14/2024 4:33 PM EST [...] 0600 and on the weekends please page [phone]. * Chloé Cortez - 06/14/2024 9:36 AM [...] unless consulted in the interim. Chloé Cortez Feeder Tender * Jim Benites MD - 06/13/2024 1:15 [...] - Mildly dilated left ventricle size with fahfxstt-nn-maxfbhax decreased LV systolic function. LV ejection fraction [...] ACS/crushing chest pain, likely due to lateral AR, found to have surgical CAD with viability [...] Weight loss: not clinically significant Yoli Pride, RICHAR * Haja Byrnes MD - 06/12/2024 4:41 PM EST CRITICAL CARE ATTENDING PROGRESS NOTE ASSESSMENT, MANAGEMENT, and DECISION MAKING: HTN, HLD, DM2, current TUD (abstinent since admission), ASCVD with multiple prior AR and PCIs, ICM/HFrEF LVEF 30% (all territories [...] elevation myocardial infarction) Cardiac resynchronization therapy defibrillator (NEWSAGENT-D) - Medtronic Amplia Cardiomyopathy, ischemic Acute on chronic heart failure with reduced ejection fraction (HFrEF, <= 40%) Coronary artery disease involving habematolel coronary artery of habematolel heart without angina pectoris Type 2 diabetes [...] PCP: Mauro Berumen MD PCP phone number: [phone] Date of Admission: 06/02/2024 ( Hospital Day 10 days ) Attending:Ethel Carrillo MD ID: 69 y.o. male with a h/o DM type 2, HTN, HLD, current smoker (2-3 cigarettes/day), HFrEF with anICD for low EF (~30%), and CAD with prior AR x3 with JENNA placed in [place], [facility], PAD, presented to [facility] with 1 hour of retrosternal CP (05/13) while watching TV, found to have STEMI. Active Problems: Active Hospital Problems Diagnosis STEMI (ST elevation myocardial infarction) Cardiac resynchronization therapy defibrillator (NEWSAGENT-D) - Medtronic Amplia Cardiomyopathy, ischemic Acute on chronic heart failure with reduced ejection fraction (HFrEF, <= 40%) Coronary artery disease involving habematolel coronary artery of habematolel heart without angina pectoris Type 2 diabetes [...] (Active) Site Preparation/Maintenance dressing: dry and intact 06/03/240 Patency/Maintenance flushed without difficulty;blood return, able to obtain;alcohol impregnated capapplied 06/03/24 0120 Phlebitis 0-->no symptoms 06/03/24 0400 Infiltration 0-->no symptoms 06/03/24 0400 Labs: Recent Labs 06/12/24 03006/11/2421206/10/24 0155 06/09/24 0212 06/08/24 0321 WBC 9.69* 9.91* 9.00 9.80* 9.92* HGB 15.2 15.3 14.9 15.5 15.1 HCT 46.6 47.5 46.4 47.4 46.7 PLATELET 194 184 191 205 203 MCV 92.3 92.6 92.2 91.5 91.7 Recent Labs 06/12/24 03006/11/2421206/10/24 0155 06/09/24 0825 06/09/242 06/08/24 0321 NA 138 134* 138 -- [...] in the last 7068 hours. Invalid input(s): [id number] Recent Labs 06/12/24 0425 06/11/24 2356 06/11/24 2025 06/11/24 1624 06/11/24 1108 06/11/24 0748 06/11/24 0357 06/11/24 0050 06/10/24 1922 06/10/24 1735 06/10/24 1125 06/10/24 0746 POCGLU 132 135 210* 81 233* 184 132 144 236* 123 216* 206* Heme No results for input(s): LDH, HAPTOGLOBIN, URICACID in the last 168 hours. ABG (Arterial Blood Gas) No results found for: PHART, PO2ART, WDF1BBB, VSN6YAA Microbiology: Microbiology Results (Last 30 days) No results found for the last 720 hours. Imaging: Results for orders placed or performed during the hospital encounter of 06/02/24 XR Chest One View (Exam End: 06/03/2024 2:41 AM) Result Value WORKSTATION ID [id number] Impression No radiographically evident acute cardiopulmonary process. Thank you for letting us participate in the care of this patient. If you are a health care provider and have any questions regarding this report, please contact the number below. For patients who have questions please contact the health youth care worker that requested your imaging first. Electronically signed by: Corazon Mauro MD, [facility] ([phone]), at 06/03/2024 3:06 AM MRI Cardiac Morphology Function wwo Contrast (Exam End: 06/07/2024 1:10 PM) Result Value WORKSTATION ID [id number] Impression - Findings consistent with an ischemic [...] - Mildly dilated left ventricle size with jndkbmwz-eg-swebwohi decreased LV systolic function. LV ejection fraction [...] who have questions please contact the health youth care worker that requested your imaging first. Electronically signed by: Kriss Alonzo MD, [facility] ([phone]), at 06/07/2024 2:[address] Chest wo Contrast (Generic) (Exam End: 06/03/2024 4:33 PM) Result Value WORKSTATION ID [id number] Impression Cardiomegaly. Biventricular ICD leads in place. Thank you for letting us participate in the care of this patient. If you are a health care provider and have any questions regarding this report, please contact the number below. For patients who have questions please contact the health youth care worker that requested your imaging first. Electronically signed by: Stuart Aponte MD, [facility] ([phone]), at 06/03/2024 4:47 PM XR Chest PA & Lateral (Generic) (Exam End: 06/07/2024 7:03 AM) Result Value WORKSTATION ID [id number] Impression Biventricular ICD leads intact and in [...] who have questions please contact the health youth care worker that requested your imaging first. Electronically signed by: Stuart Aponte MD, [facility] ([phone]), at 06/07/2024 10:45 AM TTE: Limited echo performed by fellow prison classification counselor to assess LV function. Left ventricle is [...] Infusions: heparin (porcine) infusion 1,400 Units/hr (06/12/24 0654) PRN Meds:.insulin lispro, glucose 40% oral geL [...] ischemic cardiomyopathy with HFrEF (~30% EF), prior AR with stents, DM type 2, HTN, HLD, active smoker, presented with anterior STEMI. Angiography revealed severe multivessel CAD with extensive calcification and YUE 3 flow in all vessels, without a clear culprit lesion. Currently pain-free after TNK, Plavix, ASA, and heparin, with mildly elevated LVEDP at 40 mmHg and mild volume overload. 06/12/24: Patient stable, asymptomatic. Plan to go to tin can laborer for balloon pump tomorrow, then willgo to [...] CODE Dain Colón MD Cardiology, M1-S2, Pager #[phone] 06/12/24 Associated attestation - Ethel Carrillo MD [...] (abstinent since admission), ASCVD with multiple prior AR and PCIs, ICM/HFrEF LVEF 30% (all territories [...] of two midnights or is on the [facility] inpatient only procedure list (status C) due to: acute myocardial infarction requiring titration of IV medication and fluid monitoring and decompensated congestive heart failure requiring IV medication and fluid monitoring Ethel Carrillo MD Cardiovascular Medicine Personal Pager [phone] 06/12/2024 9:12 PM * Jaleesa Baumannewa Adams, LINSEED OIL PRESS TENDER - 06/11/2024 4:21 PM EST Images from [...] too aggressive, suggest ICR 1:6 (rule of [id number]/81 = 6.25). George is up and walking [...] ischemic cardiomyopathy with HFrEF (~30% EF), prior AR with stents, DM type 2, HTN, HLD, [...] weekend and transfer to [facility], likely Friday. With lower BG following meal [...] ac, metformin 1000mg BID Alejandra Baumann APRN [facility] [place]ocrinology Diabetes Management Pager [phone] Weekends please page [phone] 35 minutes were spent over the course [...] PCP: Mauro Berumen MD PCP phone number: [phone] Date of Admission: 06/02/2024 ( Hospital Day 9 days ) Attending:Melida Valdes MD ID: 69 y.o. male with a h/o DM type 2, HTN, HLD, current smoker (2-3 cigarettes/day), HFrEF with anICD for low EF (~30%), and CAD with prior AR x3 with JENNA placed in [place], [facility], PAD, presented to [facility] with 1 hour of retrosternal CP (05/13) while watching TV, found to have STEMI. Active Problems: Active Hospital Problems Diagnosis STEMI (ST elevation myocardial infarction) Cardiac resynchronization therapy defibrillator (NEWSAGENT-D) - Medtronic Amplia Cardiomyopathy, ischemic Acute on chronic heart failure with reduced ejection fraction (HFrEF, <= 40%) Coronary artery disease involving habematolel coronary artery of habematolel heart without angina pectoris Type 2 diabetes [...] 0-->no symptoms 06/03/24 0400 Labs: Recent Labs 06/11/24 0213 06/10/24 0155 06/09/242 06/08/24 0321 06/07/24 0241 WBC 9.91* 9.00 9.80* 9.92* 10.06* HGB 15.3 14.9 15.5 15.1 14.8 HCT 47.5 46.4 47.4 46.7 46.2 PLATELET 184 191 205 203 202 MCV 92.6 92.2 91.5 91.7 92.0 Recent Labs 06/11/24 0213 06/10/24 0155 06/09/24 0825 06/09/24 0212 06/08/24 03206/07/24 0944 06/07/24 0241 NA 134* 138 -- [...] in the last 7068 hours. Invalid input(s): [id number] Recent Labs 06/11/24 0357 06/11/24 0050 06/10/24 1922 06/10/24 1735 06/10/24 1125 06/10/24 0746 06/10/24 0423 06/10/24 0005 06/09/24 2036 06/09/24 1727 06/09/24 1152 06/09/24 0810 POCGLU 132 144 236* 123 216* 206* 154 125 197 174 211* 209* Heme No results for input(s): LDH, HAPTOGLOBIN, URICACID in the last 168 hours. ABG (Arterial Blood Gas) No results found for: PHART, PO2ART, HJQ7IBQ, UKY8CAB Microbiology: Microbiology Results (Last 30 days) No results found for the last 720 hours. Imaging: Results for orders placed or performed during the hospital encounter of 06/02/24 XR Chest One View (Exam End: 06/03/2024 2:41 AM) Result Value WORKSTATION ID [id number] Impression No radiographically evident acute cardiopulmonary process. Thank you for letting us participate in the care of this patient. If you are a health care provider and have any questions regarding this report, please contact the number below. For patients who have questions please contact the health youth care worker that requested your imaging first. Electronically signed by: Corazon Mauro MD, [facility] ([phone]), at 06/03/2024 3:06 AM MRI Cardiac Morphology Function wwo Contrast (Exam End: 06/07/2024 1:10 PM) Result Value WORKSTATION ID [id number] Impression - Findings consistent with an ischemic [...] - Mildly dilated left ventricle size with kpjwyadt-tp-wpzevvwt decreased LV systolic function. LV ejection fraction [...] who have questions please contact the health youth care worker that requested your imaging first. Electronically signed by: Kriss Alonzo MD, [facility] ([phone]), at 06/07/2024 2:[address] Chest wo Contrast (Generic) (Exam End: 06/03/2024 4:33 PM) Result Value WORKSTATION ID [id number] Impression Cardiomegaly. Biventricular ICD leads in place. Thank you for letting us participate in the care of this patient. If you are a health care provider and have any questions regarding this report, please contact the number below. For patients who have questions please contact the health youth care worker that requested your imaging first. Electronically signed by: Stuart Aponte MD, [facility] ([phone]), at 06/03/2024 4:47 PM XR Chest PA & Lateral (Generic) (Exam End: 06/07/2024 7:03 AM) Result Value WORKSTATION ID [id number] Impression Biventricular ICD leads intact and in [...] who have questions please contact the health youth care worker that requested your imaging first. Electronically signed by: Stuart Aponte MD, [facility] ([phone]), at 06/07/2024 10:45 AM TTE: Limited echo performed by fellow prison classification counselor to assess LV function. Left ventricle is [...] Continuous Infusions: heparin (porcine) infusion 1,400 Units/hr (06/10/245) PRN Meds:.insulin lispro, glucose 40% oral geL [...] ischemic cardiomyopathy with HFrEF (~30% EF), prior AR with stents, DM type 2, HTN, HLD, [...] on placing this weekend and transfer to [facility], likely [place]. #ASCVD / STEMI: -Holding Plavix; continue ASA [...] CODE Dain Colón MD Cardiology, M1-S2, Pager #[phone] 06/11/24 Associated attestation - Ethel Carrillo MD [...] (abstinent since admission), ASCVD with multiple prior AR and PCIs, ICM/HFrEF LVEF 30% (all territories [...] of two midnights or is on the [facility] inpatient only procedure list (status C) due to: acute myocardial infarction requiring titration of IV medication and fluid monitoring and decompensated congestive heart failure requiring IV medication and fluid monitoring Ethel Carrillo MD Cardiovascular Medicine Personal Pager [phone] 06/11/2024 9:35 PM * Hilary Belle - 06/10/2024 12:39 PM EST Nutrition Services Note George Mehta is a 69 y.o. male Reason for intervention: hospital day 9 Nutrition Plan: Continue diet order: 60/60/75 CHO Level 2 Encourage good PO Lasix and Insulin noted Monitor weight Patient scheduled for a hospital day 9 nutrition evaluation. Business Development Professional attempted to meet with pt at bedside [...] unless consulted in the interim. Hilary Belle Sports Intern * Mariia Montero RN - 06/10/2024 12:23 PM EST I have met with the patient to: discuss discharge planning needs. provide the [facility] Office of Care Management letter from the Car Pusher pertaining to rehab referrals. provide a letter describing our affiliations within the [facility] and educate about their right to choose where referrals are sent. provide a list of Home Health Agencies / Durable Medical Equipment vendors which serve their preferred geographic area. provided patient with [facility] Star Quality Rating handout. They have requested referrals to: [facility] [address] [place] [id number] RN / PT Anticipated d/c date: 06/20/24 Note routed to a Artists' Booking Representative who will communicate referrals to facilities and provide any required information. * Dain Colón MD - 06/10/2024 7:17 AM EST Images from the original note were not included. . Cardiology Progress Note Patient info: Name: George Mehta : 1955 PCP: Mauro Berumen MD PCP phone number: [phone] Date of Admission: 06/02/2024 ( Hospital Day 8 days ) Attending:Melida Valdes MD ID: 69 y.o. male with a h/o DM type 2, HTN, HLD, current smoker (2-3 cigarettes/day), HFrEF with anICD for low EF (~30%), and CAD with prior AR x3 with JENNA placed in [place], [place], PAD, presented to [facility] with 1 hour of retrosternal CP (05/13) while watching TV, found to have STEMI. Active Problems: Active Hospital Problems Diagnosis STEMI (ST elevation myocardial infarction) Cardiac resynchronization therapy defibrillator (NEWSAGENT-D) - Medtronic Amplia Cardiomyopathy, ischemic Acute on chronic heart failure with reduced ejection fraction (HFrEF, <= 40%) Coronary artery disease involving habematolel coronary artery of habematolel heart without angina pectoris Type 2 diabetes [...] 0-->no symptoms 06/03/24 0400 Labs: Recent Labs 06/10/24 0155 06/09/24 0212 [...] in the last 7068 hours. Invalid input(s): [id number] Recent Labs 06/10/24 0423 06/10/24 0005 06/09/24 2036 06/09/24 1727 06/09/24 1152 06/09/24 0810 06/09/24 0440 06/09/24 0034 06/08/24 2027 06/08/24 1616 06/08/24 1235 06/08/24 0810 POCGLU 154 125 197 174 211* 209* 131 186 176 159 226* 190 Heme No results for input(s): LDH, HAPTOGLOBIN, URICACID in the last 168 hours. ABG (Arterial Blood Gas) No results found for: PHART, PO2ART, XFN6GSD, AQE2QYS Microbiology: Microbiology Results (Last 30 days) No results found for the last 720 hours. Imaging: Results for orders placed or performed during the hospital encounter of 06/02/24 XR Chest One View (Exam End: 06/03/2024 2:41 AM) Result Value WORKSTATION ID [id number] Impression No radiographically evident acute cardiopulmonary process. Thank you for letting us participate in the care of this patient. If you are a health care provider and have any questions regarding this report, please contact the number below. For patients who have questions please contact the health youth care worker that requested your imaging first. Electronically signed by: Corazon Mauro MD, [facility] ([phone]), at 06/03/2024 3:06 AM MRI Cardiac Morphology Function wwo Contrast (Exam End: 06/07/2024 1:10 PM) Result Value WORKSTATION ID [id number] Impression - Findings consistent with an ischemic [...] - Mildly dilated left ventricle size with tkohqnjg-jr-khqxdibu decreased LV systolic function. LV ejection fraction [...] who have questions please contact the health youth care worker that requested your imaging first. Electronically signed by: Kriss Alonzo MD, [facility] ([phone]), at 06/07/2024 2:[address] Chest wo Contrast (Generic) (Exam End: 06/03/2024 4:33 PM) Result Value WORKSTATION ID [id number] Impression Cardiomegaly. Biventricular ICD leads in place. Thank you for letting us participate in the care of this patient. If you are a health care provider and have any questions regarding this report, please contact the number below. For patients who have questions please contact the health youth care worker that requested your imaging first. Electronically signed by: Stuart Aponte MD, [facility] ([phone]), at 06/03/2024 4:47 PM XR Chest PA & Lateral (Generic) (Exam End: 06/07/2024 7:03 AM) Result Value WORKSTATION ID [id number] Impression Biventricular ICD leads intact and in [...] who have questions please contact the health youth care worker that requested your imaging first. Electronically signed by: Stuart Aponte MD, [facility] ([phone]), at 06/07/2024 10:45 AM TTE: Limited echo performed by fellow prison classification counselor to assess LV function. Left ventricle is [...] ischemic cardiomyopathy with HFrEF (~30% EF), prior AR with stents, DM type 2, HTN, HLD, [...] plan on placing this and transfer to [facility], likely Friday. #ASCVD / STEMI: -Holding Plavix; [...] CODE Dain Colón MD Cardiology, M1-S2, Pager #[phone] 06/10/24 Associated attestation - Melida Valdes MD [...] a lytic and brought directly to the Air Sealing Technician. Cardiac catheterization demonstrated multivessel disease with severe [...] who is agreeable Melida Valdes MD Staff Marble Carver * Cherelle Fregoso APRN - 06/09/2024 8:59 [...] 1152 06/09/24 0810 06/09/24 0440 06/09/24 0034 06/08/24202606/08/24 1616 06/08/24 1235 06/08/24 0810 06/08/24 0409 06/07/24 2357 06/07/24 2005 06/07/24 1631 POCGLU 211* 209* 131 186 176 159 226* 190 151 188 118 174 ASSESSMENT 69 y.o. male with CAD, ischemic cardiomyopathy with HFrEF (~30% EF), prior AR with stents, DM type 2, HTN, HLD, [...] PCP: Mauro Berumen MD PCP phone number: [phone] Date of Admission: 06/02/2024 ( Hospital Day 7 days ) Attending:Melida Valdes MD ID: 69 y.o. male with a h/o DM type 2, HTN, HLD, current smoker (2-3 cigarettes/day), HFrEF with anICD for low EF (~30%), and CAD with prior AR x3 with JENNA placed in [place], [place], PAD, presented to [facility] with 1 hour of retrosternal CP (05/13) while watching TV, found to have STEMI. Active Problems: Active Hospital Problems Diagnosis STEMI (ST elevation myocardial infarction) Acute on chronic heart failure with reduced ejection fraction (HFrEF, <= 40%) Coronary artery disease involving habematolel coronary artery of habematolel heart without angina pectoris Type 2 diabetes [...] in the last 7068 hours. Invalid input(s): [id number] Recent Labs 06/09/24 0440 06/09/24 0034 06/08/24 2027 06/08/24 1616 06/08/24 1235 06/08/24 0810 06/08/24 0409 06/07/24 2357 06/07/24 2005 06/07/24 1631 06/07/24 1105 06/07/24 1103 POCGLU 131 186 176 159 226* 190 151 188 118 174 221* 250* Heme No results for input(s): LDH, HAPTOGLOBIN, URICACID in the last 168 hours. ABG (Arterial Blood Gas) No results found for: PHART, PO2ART, GLA4MSG, RUZ4IYG Microbiology: Microbiology Results (Last 30 days) No results found for the last 720 hours. Imaging: Results for orders placed or performed during the hospital encounter of 06/02/24 XR Chest One View (Exam End: 06/03/2024 2:41 AM) Result Value WORKSTATION ID [id number] Impression No radiographically evident acute cardiopulmonary process. Thank you for letting us participate in the care of this patient. If you are a health care provider and have any questions regarding this report, please contact the number below. For patients who have questions please contact the health youth care worker that requested your imaging first. Electronically signed by: Corazon Mauro MD, [facility] ([phone]), at 06/03/2024 3:06 AM MRI Cardiac Morphology Function wwo Contrast (Exam End: 06/07/2024 1:10 PM) Result Value WORKSTATION ID [id number] Impression - Findings consistent with an ischemic [...] - Mildly dilated left ventricle size with hcilfqwy-do-jokhrrfx decreased LV systolic function. LV ejection fraction [...] who have questions please contact the health youth care worker that requested your imaging first. Electronically signed by: Kriss Alonzo MD, [facility] ([phone]), at 06/07/2024 2:[address] Chest wo Contrast (Generic) (Exam End: 06/03/2024 4:33 PM) Result Value WORKSTATION ID [id number] Impression Cardiomegaly. Biventricular ICD leads in place. Thank you for letting us participate in the care of this patient. If you are a health care provider and have any questions regarding this report, please contact the number below. For patients who have questions please contact the health youth care worker that requested your imaging first. Electronically signed by: Stuart Aponte MD, [facility] ([phone]), at 06/03/2024 4:47 PM XR Chest PA & Lateral (Generic) (Exam End: 06/07/2024 7:03 AM) Result Value WORKSTATION ID [id number] Impression Biventricular ICD leads intact and in [...] who have questions please contact the health youth care worker that requested your imaging first. Electronically signed by: Stuart Aponte MD, [facility] ([phone]), at 06/07/2024 10:45 AM TTE: Limited echo performed by fellow prison classification counselor to assess LV function. Left ventricle is [...] Infusions: heparin (porcine) infusion 1,400 Units/hr (06/08/24 418) PRN Meds:.glucose 40% oral geL OR dextrose [...] ischemic cardiomyopathy with HFrEF (~30% EF), prior AR with stents, DM type 2, HTN, HLD, [...] CODE Dain Colón MD Cardiology, M1-S2, Pager #[phone] 06/09/24 Associated attestation - Melida Valdes MD [...] a lytic and brought directly to the Air Sealing Technician. Cardiac catheterization demonstrated multivessel disease with severe [...] insertion low EF. Melida Valdes MD Staff Marble Carver * Alejandra Baumann, JOSÉ ANTONIO - 06/08/2024 4:10 PM EST Images from [...] 2005 06/07/24 1631 06/07/24 1105 06/07/24 1103 06/07/24 0745 06/07/24 0425 06/07/24 0008 06/06/242017 POCGLU 226* 190 151 188 118 174 221* 250* 175 127 182 143 ASSESSMENT 69 y.o. male with CAD, ischemic cardiomyopathy with HFrEF (~30% EF), prior AR with stents, DM type 2, HTN, HLD, [...] to optimize glucose control Alejandra Baumann APRN [facility] Endocrinology Diabetes Management Pager [phone] Weekends please page [phone] 35 minutes were spent over the course [...] info: Name: George Mehta : 1955 PCP: Maruo Berumen MD PCP phone number: [phone] Date of Admission: 06/02/2024 ( Hospital Day 6 days ) Attending:Melida Valdes MD ID: 69 y.o. male with a h/o DM type 2, HTN, HLD, current smoker (2-3 cigarettes/day), HFrEF with anICD for low EF (~30%), and CAD with prior AR x3 with JENNA placed in [place], [place], PAD, presented to [facility] with 1 hour of retrosternal CP (05/13) while watching TV, found to have STEMI. Active Problems: Active Hospital Problems Diagnosis STEMI (ST elevation myocardial infarction) Acute on chronic heart failure with reduced ejection fraction (HFrEF, <= 40%) Coronary artery disease involving habematolel coronary artery of habematolel heart without angina pectoris Type 2 diabetes [...] 0-->no symptoms 06/03/24 040 Labs: Recent Labs 06/08/24 0321 06/07/24 0241 06/06/24 0333 06/05/24 0344 06/04/24 0438 WBC 9.92* 10.06* 9.81* 10.83* 11.45* HGB 15.1 14.8 14.6 15.3 16.0 HCT 46.7 46.2 45.4 46.8 49.6* PLATELET 203 202 199 219 222 MCV 91.7 92.0 92.5 92.3 92.7 Recent Labs 06/08/24 0321 06/07/24 1722 06/07/24 0944 06/07/24 0241 06/06/24 1437 06/06/24 1017 06/06/24 0333 06/05/24 0904 06/05/24 0344 06/04/24 1041 06/04/24 0438 06/03/24212 NA 135 -- -- 136 -- -- [...] in the last 7068 hours. Invalid input(s): [id number] Recent Labs 06/08/24 0409 06/07/24 2357 06/07/24 2005 06/07/24 1631 06/07/24 1105 06/07/24 1103 06/07/24 0745 06/07/24 0425 06/07/24 0008 06/06/24201706/06/24 1539 06/06/24 1339 POCGLU 151 188 118 174 221* 250* 175 127 182 143 147 317* Heme No results for input(s): LDH, HAPTOGLOBIN, URICACID in the last 168 hours. ABG (Arterial Blood Gas) No results found for: PHART, PO2ART, DXC2HHU, ZYF2IPD Microbiology: Microbiology Results (Last 30 days) No results found for the last 720 hours. Imaging: Results for orders placed or performed during the hospital encounter of 06/02/24 XR Chest One View (Exam End: 06/03/2024 2:41 AM) Result Value WORKSTATION ID [id number] Impression No radiographically evident acute cardiopulmonary process. Thank you for letting us participate in the care of this patient. If you are a health care provider and have any questions regarding this report, please contact the number below. For patients who have questions please contact the health youth care worker that requested your imaging first. Electronically signed by: Corazon Mauro MD, [facility] ([phone]), at 06/03/2024 3:06 AM MRI Cardiac Morphology Function wwo Contrast (Exam End: 06/07/2024 1:10 PM) Result Value WORKSTATION ID [id number] Impression - Findings consistent with an ischemic [...] - Mildly dilated left ventricle size with twvaeixq-ft-lhsxahql decreased LV systolic function. LV ejection fraction [...] who have questions please contact the health youth care worker that requested your imaging first. Electronically signed by: Kriss Alonzo MD, [facility] ([phone]), at 06/07/2024 2:[address] Chest wo Contrast (Generic) (Exam End: 06/03/2024 4:33 PM) Result Value WORKSTATION ID [id number] Impression Cardiomegaly. Biventricular ICD leads in place. Thank you for letting us participate in the care of this patient. If you are a health care provider and have any questions regarding this report, please contact the number below. For patients who have questions please contact the health youth care worker that requested your imaging first. Electronically signed by: Stuart Aponte MD, [facility] ([phone]), at 06/03/2024 4:47 PM XR Chest PA & Lateral (Generic) (Exam End: 06/07/2024 7:03 AM) Result Value WORKSTATION ID [id number] Impression Biventricular ICD leads intact and in [...] who have questions please contact the health youth care worker that requested your imaging first. Electronically signed by: Stuart Aponte MD, [facility] ([phone]), at 06/07/2024 10:45 AM TTE: Limited echo performed by fellow prison classification counselor to assess LV function. Left ventricle is [...] Infusions: heparin (porcine) infusion 1,400 Units/hr (06/08/24 8682) PRN Meds:.insulin lispro, potassium chloride ER OR [...] ischemic cardiomyopathy with HFrEF (~30% EF), prior AR with stents, DM type 2, HTN, HLD, [...] CODE Dain Colón MD Cardiology, M1-S2, Pager #[phone] 06/08/24 Associated attestation - Melida Valdes MD [...] a lytic and brought directly to the Air Sealing Technician. Cardiac catheterization demonstrated multivessel disease with severe [...] Otherwise clinically stable Melida Valdes MD Staff Marble Carver * Ross Manuel PA - 06/07/2024 12:00 PM EST Cardiac Electrophysiology CIED Interrogation/Programming Note Asked by MRI staff to evaluate and program Medtronic NEWSAGENT-D to allow for MR imaging. Patient Active Problem List Diagnosis ','STEMI (ST elevation myocardial infarction) Acute on chronic heart failure with reduced ejection fraction (HFrEF, <= 40%) Coronary artery disease involving habematolel coronary artery of habematolel heart without angina pectoris Type 2 diabetes mellitus Device Data: Med[employer]nn Amplia MRI Quad NEWSAGENT-D GHOO2GY #[id number] 06/16/2019 RA Medtronic 4076 CapSureFix Novus [id number] 06/16/2019 RV Medtronic [id number] 06/16/2019 LV Medtronic 4298 Attain Performa MRI [id number] 06/16/2019 DDD @ 50/130/130 Adaptive Bi-V and LV VF >188bpm ATP, 35j x6 FVT >188-222bpm burst 2, 35jx5 VT Battery longevity: 2.5yrs; charge time 4s P wave: 2.3mV R wave: >20.0mV Atrial impedance: 458 ohms RV impedance: 646 ohms LV impedance: 722 ohms Atrial threshold: 0.5V @ 0.4ms RV threshold: LV threshold: 1.75V @ 0.4ms AP 0.2% ELECTRICIAN SUPERVISOR 97.7% AT/AF 0% Impression and Plan: 1. Interrogated device to determine suitability for MRI 2. Programmed to MRI safe mode - VOO @ 70 3. Scan performed 4. Programming restored to baseline settings 5. Reinterrogated to verify appropriate function and settings 6. Device follow up as previously scheduled Provider: HENOK Meyer EP Consult attending physician: Libby Barton MD EP Consult positional pager #[phone](EPMD) EP Device interrogation positional pager # [phone] * Dain Colón MD - 06/07/2024 7:09 AM EST Images from the original note were not included. . Cardiology Progress Note Patient info: Name: George Mehta : 1955 PCP: Mauro Berumen MD PCP phone number: [phone] Date of Admission: 06/02/2024 ( Hospital Day 5 days ) Attending:Melida Valdes MD ID: 69 y.o. male with a h/o DM type 2, HTN, HLD, current smoker (2-3 cigarettes/day), HFrEF with anICD for low EF (~30%), and CAD with prior AR x3 with JENNA placed in [place], Melanoma, PAD, presented to [facility] with 1 hour of retrosternal CP (05/13) while watching TV, found to have STEMI. Active Problems: Active Hospital Problems Diagnosis STEMI (ST elevation myocardial infarction) Acute on chronic heart failure with reduced ejection fraction (HFrEF, <= 40%) Coronary artery disease involving habematolel coronary artery of habematolel heart without angina pectoris Type 2 diabetes [...] in the last 7068 hours. Invalid input(s): [id number] Recent Labs 06/07/24 0425 06/07/24 0008 06/06/24 2018 06/06/24 1539 06/06/24 1339 06/06/24 1134 06/06/24 0757 06/06/24 0653 06/05/24 2231 06/05/24 1622 06/05/24 1134 06/05/24 0727 POCGLU 127 182 143 147 317* 264* 195 187 238* 205* 211* 166 Heme No results for input(s): LDH, HAPTOGLOBIN, URICACID in the last 168 hours. ABG (Arterial Blood Gas) No results found for: PHART, PO2ART, UTR0XVL, IXP1NIL Microbiology: Microbiology Results (Last 30 days) No results found for the last 720 hours. Imaging: Results for orders placed or performed during the hospital encounter of 06/02/24 XR Chest One View (Exam End: 06/03/2024 2:41 AM) Result Value WORKSTATION ID [id number] Impression No radiographically evident acute cardiopulmonary process. Thank you for letting us participate in the care of this patient. If you are a health care provider and have any questions regarding this report, please contact the number below. For patients who have questions please contact the health youth care worker that requested your imaging first. Electronically signed by: Corazon Mauro MD, [facility] ([phone]), at 06/03/2024 3:[address] Chest wo Contrast (Generic) (Exam End: 06/03/2024 4:33 PM) Result Value WORKSTATION ID [id number] Impression Cardiomegaly. Biventricular ICD leads in place. Thank you for letting us participate in the care of this patient. If you are a health care provider and have any questions regarding this report, please contact the number below. For patients who have questions please contact the health youth care worker that requested your imaging first. Electronically signed by: Stuart Aponte MD, [facility] ([phone]), at 06/03/2024 4:47 PM TTE: Limited echo performed by fellow prison classification counselor to assess LV function. Left ventricle is [...] Continuous Infusions: heparin (porcine) infusion 1,400 Units/hr (06/06/242147) PRN Meds:.insulin lispro, potassium chloride ER OR [...] ischemic cardiomyopathy with HFrEF (~30% EF), prior AR with stents, DM type 2, HTN, HLD, [...] Dain Colón MD (PGY-1) Cardiology, M1-S2, Pager #[phone] 06/07/24 Associated attestation - Melida Valdes MD [...] a lytic and brought directly to the Air Sealing Technician. Cardiac catheterization demonstrated multivessel disease with severe [...] for further guidance. Melida Valdes MD Staff Marble Carver * Dain Colón MD - 06/06/2024 7:17 AM EST Images from the original note were not included. . Cardiology Progress Note Patient info: Name: George Mehta : 1955 PCP: Mauro Berumen MD PCP phone number: [phone] Date of Admission: 06/02/2024 ( Hospital Day 4 days ) Attending:Melida Valdes MD ID: 69 y.o. male with a h/o DM type 2, HTN, HLD, current smoker (2-3 cigarettes/day), HFrEF with anICD for low EF (~30%), and CAD with prior AR x3 with JENNA placed in [place], Melanoma, PAD, presented to [facility] with 1 hour of retrosternal CP (05/13) while watching TV, found to have STEMI. Active Problems: Active Hospital Problems Diagnosis STEMI (ST elevation myocardial infarction) Acute on chronic heart failure with reduced ejection fraction (HFrEF, <= 40%) Coronary artery disease involving habematolel coronary artery of habematolel heart without angina pectoris Type 2 diabetes [...] 0-->no symptoms 06/03/24 0400 Labs: Recent Labs 06/06/243 06/05/24 0344 06/04/24 0438 06/03/24 021 WBC 9.81* 10.83* 11.45* 11.16* HGB 14.6 [...] this interval not displayed. LFTs Recent Labs 06/03/24 021 PROT 7.0 ALBUMIN 3.8 AST 20 ALT 12 ALKPHOS 76 BILITOT 0.4 BILIDIR <0.2 Coags Recent Labs 06/03/24 0213 INR 1.0 PT 11.5 PTT 105* Cardiac Enzymes Recent Labs 06/03/24 0213 PROBNP 1,628* Endocrine No results for input(s): TSH, CORTISOL in the last 68 hours. Invalid input(s): [id number] Recent Labs 06/06/24 0653 06/05/24 2231 06/05/24 1622 06/05/24 1134 06/05/24 0727 06/04/24 1943 06/04/24 1526 06/04/24 1109 06/04/24 0711 06/03/24 2005 06/03/24 1748 06/03/24 1114 POCGLU 187 238* 205* 211* 166 175 154 188 182 136 191 166 Heme No results for input(s): LDH, HAPTOGLOBIN, URICACID in the last 168 hours. ABG (Arterial Blood Gas) No results found for: PHART, PO2ART, VKR4JZB, VYH0PUN Microbiology: Microbiology Results (Last 30 days) No results found for the last 720 hours. Imaging: Results for orders placed or performed during the hospital encounter of 06/02/24 XR Chest One View (Exam End: 06/03/2024 2:41 AM) Result Value WORKSTATION ID [id number] Impression No radiographically evident acute cardiopulmonary process. Thank you for letting us participate in the care of this patient. If you are a health care provider and have any questions regarding this report, please contact the number below. For patients who have questions please contact the health youth care worker that requested your imaging first. Electronically signed by: Corazon Mauro MD, [facility] ([phone]), at 06/03/2024 3:[address] Chest wo Contrast (Generic) (Exam End: 06/03/2024 4:33 PM) Result Value WORKSTATION ID [id number] Impression Cardiomegaly. Biventricular ICD leads in place. Thank you for letting us participate in the care of this patient. If you are a health care provider and have any questions regarding this report, please contact the number below. For patients who have questions please contact the health youth care worker that requested your imaging first. Electronically signed by: Stuart Aponte MD, [facility] ([phone]), at 06/03/2024 4:47 PM TTE: Limited echo performed by fellow prison classification counselor to assess LV function. Left ventricle is [...] ischemic cardiomyopathy with HFrEF (~30% EF), prior AR with stents, DM type 2, HTN, HLD, [...] (Active) Number of days: 3 Code status: @YESSI@ Dain Colón MD (PGY-1) Cardiology, M1-S2, Pager #[phone] 06/06/24 Associated attestation - Melida Valdes MD [...] a lytic and brought directly to the Air Sealing Technician. Cardiac catheterization demonstrated multivessel disease with severe [...] management. Help appreciated Melida Valdes MD Staff Marble Carver * Frederick Dunn MD - 06/05/2024 8:13 AM EDT Images from the original note were not included. . Cardiology Progress Note Patient info: Name: George Mehta : 1955 PCP: Mauro Bermuen MD PCP phone number: [phone] Date of Admission: 06/02/2024 ( Hospital Day 3 days ) Attending:Melida Valdes MD ID: 69 y.o. male with a h/o DM type 2, HTN, HLD, current smoker (2-3 cigarettes/day), HFrEF with anICD for low EF (~30%), and CAD with prior AR x3 with JENNA placed in [place], Melanoma, PAD, presented to [facility] with 1 hour of retrosternal CP (05/13) [...] 06/04/24 2234 06/04/24 1635 06/04/24 1041 06/04/24 04306/03/24212 NA -- 136 -- -- -- 137 [...] -- -- 1.22 1.13 LFTs Recent Labs 06/03/24212 PROT 7.0 ALBUMIN 3.8 AST 20 ALT 12 ALKPHOS 76 BILITOT 0.4 BILIDIR <0.2 Coags Recent Labs 06/03/24212 INR 1.0 PT 11.5 PTT 105* Cardiac Enzymes Recent Labs 06/03/24212 PROBNP 1,628* Endocrine No results for input(s): TSH, CORTISOL in the last 7068 hours. Invalid input(s): AXNVQGRMBGH1G Recent Labs 06/05/24 1134 06/05/24 0727 06/04/24 1943 06/04/24 1526 06/04/24 1109 06/04/24 0711 06/03/24 2005 06/03/24 1748 06/03/24 1114 06/03/24 0754 06/02/24 2331 POCGLU 211* 166 175 154 188 182 136 191 166 195 156 Heme No results for input(s): LDH, HAPTOGLOBIN, URICACID in the last 168 hours. ABG (Arterial Blood Gas) No results found for: PHART, PO2ART, IZD3BZW, XOW2SOB Microbiology: Microbiology Results (Last 30 days) No results found for the last 720 hours. Imaging: Results for orders placed or performed during the hospital encounter of 06/02/24 XR Chest One View (Exam End: 06/03/2024 2:41 AM) Result Value WORKSTATION ID [id number] Impression No radiographically evident acute cardiopulmonary process. Thank you for letting us participate in the care of this patient. If you are a health care provider and have any questions regarding this report, please contact the number below. For patients who have questions please contact the health youth care worker that requested your imaging first. Electronically signed by: Corazon Mauro MD, [facility] ([phone]), at 06/03/2024 3:[address] Chest wo Contrast (Generic) (Exam End: 06/03/2024 4:33 PM) Result Value WORKSTATION ID [id number] Impression Cardiomegaly. Biventricular ICD leads in place. Thank you for letting us participate in the care of this patient. If you are a health care provider and have any questions regarding this report, please contact the number below. For patients who have questions please contact the health youth care worker that requested your imaging first. Electronically signed by: Stuart Aponte MD, [facility] ([phone]), at 06/03/2024 4:47 PM TTE: Limited echo performed by fellow prison classification counselor to assess LV function. Left ventricle is [...] ischemic cardiomyopathy with HFrEF (~30% EF), prior AR with stents, DM type 2, HTN, HLD, [...] all the information they need regarding the NEWSAGENT-D.Plan for MRI tomorrow. Starting 40 mg IV [...] a lytic and brought directly to the Air Sealing Technician. Cardiac catheterization demonstrated multivessel disease with severe [...] maintenance of 40. Melida Valdes MD Staff Marble Carver * Migel Javier RN - 06/05/2024 6:21 AM EDT Implanted device record scanned into: Chart Review-->Media-->External Cardiology-->03/25/2024. Medtronic [employer] MRI Quad CRTD [id number] Serial #: [id number] DDD mode A + Bi/V Rates 50-130 Migel Javier RN * Dain Colón MD - 06/04/2024 11:16 AM EDT Implant Records Requested Type: NEWSAGENT-D [employer] Rep: Medtronic Product: [id number] Amplia MRI MRI compatibility: Compatible for 1.5-3 T Model #: [id number] Placed at: [place], [place] Records requested for MRI: 1. Operative report 2. Implant log I requested that these records be sent to our MRI department, Dain Colón MD 06/04/24 11:58 AM * Dain Colón MD - 06/04/2024 6:57 AM EDT Images from the original note were not included. . Cardiology Progress Note Patient info: Name: George Mehta : 1955 PCP: Mauro Berumen MD PCP phone number: [phone] Date of Admission: 06/02/2024 ( Hospital Day 2 days ) Attending:Delroy Fofana MD ID: 69 y.o. male with a h/o DM type 2, HTN, HLD, current smoker (2-3 cigarettes/day), HFrEF with anICD for low EF (~30%), and CAD with prior AR x3 with JENNA placed in [place], Melanoma, PAD, presented to [facility] with 1 hour of retrosternal CP (05/13) [...] no pedal edema Lines/Drains/Airways Lines: PIV 06/02/24 220 20 gauge cephalic vein (lateral side of [...] in the last 7068 hours. Invalid input(s): FRHSEMKLZZJ6C Recent Labs 06/03/24200406/03/24 1748 06/03/24 1114 06/03/24 0754 06/02/24 2331 POCGLU 136 191 166 195 156 Heme No results for input(s): LDH, HAPTOGLOBIN, URICACID in the last 168 hours. ABG (Arterial Blood Gas) No results found for: PHART, PO2ART, YRR5MBR, GXY1GSO Microbiology: Microbiology Results (Last 30 days) No results found for the last 720 hours. Imaging: Results for orders placed or performed during the hospital encounter of 06/02/24 XR Chest One View (Exam End: 06/03/2024 2:41 AM) Result Value WORKSTATION ID [id number] Impression No radiographically evident acute cardiopulmonary process. Thank you for letting us participate in the care of this patient. If you are a health care provider and have any questions regarding this report, please contact the number below. For patients who have questions please contact the health youth care worker that requested your imaging first. Electronically signed by: Corazon Mauro MD, [facility] ([phone]), at 06/03/2024 3:[address] Chest wo Contrast (Generic) (Exam End: 06/03/2024 4:33 PM) Result Value WORKSTATION ID [id number] Impression Cardiomegaly. Biventricular ICD leads in place. Thank you for letting us participate in the care of this patient. If you are a health care provider and have any questions regarding this report, please contact the number below. For patients who have questions please contact the health youth care worker that requested your imaging first. Electronically signed by: Stuart Aponte MD, [facility] ([phone]), at 06/03/2024 4:47 PM TTE: Limited echo performed by fellow prison classification counselor to assess LV function. Left ventricle is [...] ischemic cardiomyopathy with HFrEF (~30% EF), prior AR with stents, DM type 2, HTN, HLD, [...] -Lasix 40 mg IV given in the tin can laborer; assess diuretic response, consider re-dosing -Continue carvedilol; [...] (Active) Number of days: 1 Code status: @CODESTATUS@ Dain Colón MD (PGY-1) [...] a lytic and brought directly to the Air Sealing Technician. Cardiac catheterization demonstrated multivessel disease with severe [...] Friday -Diuresis with Jovanni Valdes MD Staff Marble Carver * Fatmata Mcallister PT - 06/03/2024 3:29 [...] vs PCI) Fatmata Mcallister PT, MSPT Pager [phone] Inpatient Physical Therapy * Marlin Gómez MD [...] Marlin Gómez MD Cardiology S2, Pager # [phone] 06/03/2024 * Delroy Fofana MD - 06/03/2024 7:16 AM EDT Images from the original note were not included. . Cardiology Progress Note Patient info: Name: George Mehta : 1955 PCP: Mauro Berumen MD PCP phone number: [phone] Date of Admission: 06/02/2024 ( Hospital Day 1 day ) Attending:Nuha Rojo MD ID: 69 y.o. male with a h/o DM type 2, HTN, HLD, current smoker (2-3 cigarettes/day), HFrEF with anICD for low EF (~30%), and CAD with prior AR x3 with JENNA placed in [place], Melanoma, PAD, presented to [facility] with 1 hour of retrosternal CP (05/13) [...] for the past 168 hrs: Weight 06/03/24 06 97.1 kg (214 lb) 06/02/24 2259 102 kg (224 lb 13.9 oz) Admit wt: 102 kg Physical Exam: Gen: in bed in NAD; alert, oriented, conversant HEENT: Anicteric, EOMI intact CV: RRR, no murmurs/rubs/gallops, JV non-distended Resp: Lung sounds clear but decreased throughout, no wheezes/crackles Abd: Abdomen soft, NDNT Ext: 2+ distal pulses, no pedal edema Lines/Drains/Airways Lines: PIV 06/02/242199 20 gauge cephalic vein (lateral side of arm), right (Active) Site Preparation/Maintenance dressing: dry and intact 06/03/24399 Patency/Maintenance flushed without difficulty;blood return, able to obtain;alcohol impregnated capapplied 06/03/24 012 Phlebitis 0-->no symptoms 06/03/24399 Infiltration 0-->no symptoms 06/03/24399 Labs: Recent Labs 06/03/24 0213 WBC 11.16* HGB 15.0 HCT 47.4 PLATELET [...] in the last 7068 hours. Invalid input(s): ASOFVFLUMTW1O Recent Labs 06/02/24 2331 POCGLU 156 Heme No results for input(s): LDH, HAPTOGLOBIN, URICACID in the last 168 hours. ABG (Arterial Blood Gas) No results found for: PHART, PO2ART, DGQ3MOL, YJE9FNM Microbiology: Microbiology Results (Last 30 days) No results found for the last 720 hours. Imaging: Results for orders placed or performed during the hospital encounter of 06/02/24 XR Chest One View (Exam End: 06/03/2024 2:41 AM) Result Value WORKSTATION ID [id number] Impression No radiographically evident acute cardiopulmonary process. Thank you for letting us participate in the care of this patient. If you are a health care provider and have any questions regarding this report, please contact the number below. For patients who have questions please contact the health youth care worker that requested your imaging first. Electronically signed by: Corazon Mauro MD, [facility] ([phone]), at 06/03/2024 3:06 AM TTE: Limited echo performed by fellow prison classification counselor to assess LV function. Left ventricle is [...] ischemic cardiomyopathy with HFrEF (~30% EF), prior AR with stents, DM type 2, HTN, HLD, [...] -Lasix 40 mg IV given in the tin can laborer; assess diuretic response, consider re-dosing -Continue carvedilol; [...] (Active) Number of days: 0 Code status: @CODESTAOLIVER@ Dain Colón MD (PGY-1) Cardiology M1-S2, #[id number] 06/03/2024, 7:16 AM Cardiology Staff - Progress Note Addendum This patient was seen and examined on morning rounds with the S2 inpatient team. I agree with the findings and plan of care per Dain Colón MD (special forces medical sergeant). Please refer to his note above for details. Very pleasant 69 year old male but he is obese, diabetic, and he is a SMOKER with known prior CAD and moderately reduced LVEF (30%). He has a pacer. History of surgical resection of melanoma on his head. The patient was transferred [place] [facility]. He was treated initially with a lytic (TNK) and brought directly to the tin can laborer. The cath demonstrated 3VD with diffuse disease [...] - 06/13/2024 10:58 AM EST ICU Blue (#[id number]) H&P Patient info: Name: George Mehta : 1955 PCP: Mauro Berumen MD PCP phone number: [phone] Date of Admission: 06/02/2024 ( Hospital Day 11 days ) Attending:Haja Byrnes MD ID: George Mehta is a 69 y.o. male with a h/o DM type 2, HTN, HLD, current smoker (2-3 cigarettes/day), HFrEF with an ICD for low EF (~30%), and CAD with prior AR x3 with JENNA placed in [place], Melanoma, PAD, presented to [facility] with 1 hour of retrosternal CP (05/13) while watching TV, foundto have STEMI. HPI: Shahnaz Scanlon H&P 06/02 69 y.o. male with a h/o DM type 2, HTN, HLD, current smoker (2-3 cigarettes/day), HFrEF with an ICD for low EF (~30%), and CAD with prior AR x3 with JENNA placed in [place], Melanoma, PAD, presented to [facility] with 1 hour of retrosternal CP (05/13) while watching TV. CP was non-radiating, not asso ciated with diaphoresis, nausea, or SOB. Denies orthopnea, MARTÍNEZ, palpitations, or LE edema. ECG showed findings consistent with anterior STEMI. He received TNK and was transferred for PCI. Coronary angiography showed a small, non-dominant RCA with auhz-ck-iewltccw disease and a dominant,heavily calcified left system with prior stents in the LAD and OM. The LM bifurcates into the LAD and LCX, both heavily calcified. The proximal LCX has a 75% calcified, aneurysmal lesion, and an 80% calcified lesion distally before a large OM2. OM1 is a PHOTO FINISH PHOTOGRAPHER with in-stent restenosis, filling retrograde via collaterals. [...] 40 mg Lasix was administered in the tin can laborer. Cardiac surgery was consulted and plan for [...] Blood Gas) No results for input(s): PHART, EXI1QCA, PO2ART, EWH2JGQ, LACTATEVEN, HVF6MIK, PFRATIOART2 in the last 168 hours. VBG (Venous Blood Gas) Recent Labs 06/10/24 1742 PHVEN 7.34 PO2VEN 24 DLX2CCX 27.4 Mixed Venous Sat No results for input(s): D5ODJA0 in the last 168 hours. Intake/Output Summary [...] 94.5 kg (208 lb 6.4 oz) 06/10/24 041 93.5 kg (206 lb 3.2 oz) 06/09/24 0438 94 kg (207 lb 3.2 oz) 06/08/24 0346 94 kg (207 lb 3.2 oz) 06/07/24 041 94.3 kg (207 lb 14.3 oz) Admit [...] 06/13/24 Proximal;Right;Anterior Femoral (Active) Site Assessment Clean;Dry;Intact 06/13/24939 Intra-Aortic Balloon Pump 06/13/24 09 (Active) Balloon Refill refilled automatically 06/13/24 1000 [...] in the last 7068 hours. Invalid input(s): [id number] Recent Labs 06/13/24 0741 06/13/24 0325 06/12/24 2353 06/12/24 1932 06/12/24 1541 06/12/24 1121 06/12/24 0800 06/12/24 0425 06/11/24 2356 06/11/24 2025 06/11/24 1624 06/11/24 1108 POCGLU 126 99 141 158 113 207* 169 132 135 210* 81 233* Heme No results for input(s): LDH, HAPTOGLOBIN, URICACID in the last 168 hours. ABG (Arterial Blood Gas) No results for input(s): PHART, ECX4XWL, PO2ART, BFD2CFH, LACTATEVEN, XGR1DLC, PFRATIOART2 in the last 168 hours. VBG (Venous Blood Gas) Recent Labs 06/10/24 1742 PHVEN 7.34 PO2VEN 24 ELV9EOI 27.4 Mixed Venous Sat No results for input(s): A4IORG1 in the last 168 hours. Microbiology: Microbiology Results (Last 30 days) No results found for the last 720 hours. Assessment & Plan: George Mehta is a 69 y.o. male with CAD, ischemic cardiomyopathy with HFrEF (~30% EF), prior AR with stents, DM type 2, HTN, HLD, [...] Plan for CABG 06/14. Patient NPO at [place]. #ASCVD / STEMI: -Holding Plavix; continue ASA [...] (Give Meds) Daily Healthy Menu Choices/Cardiac diet ([facility] DVT Prophylaxis: SCD GI Prophylaxis: None Dispo: TBD Code Status: Attempt Cardiopulmonary Resuscitation - Inpatient Roel Zheng, Internal Medicine, PGY-1 [facility] 06/13/24 10:58 AM * Rebeca Prado MD - 06/13/2024 5:56 AM EST Pre-Cardiac Catheterization H&P 06/13/24 George Mehta is a 69 y.o. male referred for planned IABP prior to CABG. Mr. Mehta has a hx of HTN, HLD, DM2, current TUD (abstinent since admission), ASCVD with multipleprior AR and PCIs, ICM/HFrEF LVEF 30% (all territories [...] is in the chart Rebeca Prado MD Marriage Performer PGY6 [id number] * Shahnaz Scanlon MD - [...] low EF (~30%), and CAD with prior AR x3 with JENNA placed in [facility], presented to [facility] with 1 hour of retrosternal CP (05/13) while watching TV. CP was non-radiating, not assoc iated with diaphoresis, nausea, or SOB. Denies orthopnea, MARTÍNEZ, palpitations, or LE edema. ECG showed findings consistent with anterior STEMI. He received TNK and was transferred for PCI. Coronary angiography showed a small, non-dominant RCA with cwqz-rj-smdppzoy disease and a dominant,heavily calcified left system with prior stents in the LAD and OM. The LM bifurcates into the LAD and LCX, both heavily calcified. The proximal LCX has a 75% calcified, aneurysmal lesion, and an 80% calcified lesion distally before a large OM2. OM1 is a PHOTO FINISH PHOTOGRAPHER with in-stent restenosis, filling retrograde via collaterals. [...] 40 mg Lasix was administered in the tin can laborer. Past Medical History: As per HPI Significant [...] Affect: Mood normal. Behavior: Behavior normal. Diagnostics: [facility] 06/02/2024 Coronary angiography revealed small non dominant [...] ischemic cardiomyopathy with HFrEF (~30% EF), prior AR with stents, DM type 2, HTN, HLD, [...] -Lasix 40 mg IV given in the tin can laborer; assess diuretic response. -Continue carvedilol; hold Entresto [...] & Follow-up Care: Contact information for follow-up [facility] [address] [facility] [address] Cardiac Rehab, [address] [address] JAMIE GRAMAJO confirmed with [facility] that they [...] MEDICARE Payor: [employer]ARP MANAGED MEDICARE / Plan: AAR RP MANAGED MEDICARE COMPLETE / Product Type: [...] call jones within reach. PLAN MOVING FORWARD: Diurese D/C planning INDIVIDUALIZED FALL PREVENTION INTERVENTIONS: Assistance [...] Roberts RN - 06/18/2024 10:50 AM EST [facility] [place] [facility] George Mehta was seen today regarding participation in the outpatient Phase 2 Cardiac Rehabilitation at [facility]. The patient agrees to a referral to [...] recs Patient is insured through: Primary Insurance: [employer] MANAGED MEDICARE Payor: AARP MANAGED MEDICARE / Plan: AAR RP MANAGED MEDICARE COMPLETE / Product Type: *No Product type* / Secondary Insurance: N/A Last Physical Therapy Recommendation: (home with ) with to be determined (06/15/24 1028) Plan for discharge is: Home w/ Services Outpatient Agency/Support Group Needs: Homecare agency Agency Choices: [facility] Home Health Services: Medication checks, Registered Nurse, Physical Therapy Agency Referrals: pending clinical course and PT/OT recs [facility] [address] [facility] [address] PHONE: [phone] FAX: [phone] Transportation: family or friend will provide Barriers [...] d/c home with home health services when MR; RN CM will continue to monitor for potential d/c [...] MEDICARE Payor: AAR MANAGED MEDICARE / Plan: [facility] MANAGED MEDICARE COMPLETE / Product Type: *No Product type* / Secondary Insurance: N/A Plan for discharge is: Home w/ Services Outpatient Agency/Support Group Needs: Homecare agency Agency Choices: [facility] Services: Medication checks, Registered Nurse, Physical Therapy Agency Referrals: pending clinical course and PT/OT recs [facility] [address] [place] [address] PHONE: [phone] FAX: [phone] Transportation: family or friend will provide Barriers [...] home with home health services when MR. AYALA CM will continue to monitor for anticipated d/c needs. Anticipated Date of Discharge: 06/19/2024 * Op Note - Bobby Loja MD - 06/14/2024 8:48 AM EST [facility] Operative Note Patient Name: George Mehta : [id number] MR#: [id number] Case Date: 06/14/2024 Surgeon: Surgeons and Role: * Bobby Loja MD - Primary * Rashi Bass PA - Physician Onshore Diver Preoperative diagnosis: CAD, MARIALUISA flickering mass on [...] (Canceled), HEMOGLOBIN AND HEMATOCRIT, BLOOD Allison Gallagher Raad 06/14/2024 1123 B : Blood Blood, Arterial PROTHROMBIN TIME, APTT Elliott, Allison Shankar 06/14/2024 1209 C : Blood Blood, Arterial [...] procedures today and tomorrow. Report called to [facility] - all belongings with patient. 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 INDIVIDUALIZED FALL PREVENTION INTERVENTIONS: Assistance [level of [...] as Appropriate) * Plan of Care - Jose F-Michelle Barahona RN - 06/12/2024 5:55 AM EST OUTCOME [...] No Patient is insured through: Primary Insurance: [facility] MANAGED MEDICARE Payor: [facility] MANAGED MEDICARE / Plan: [facility] MANAGED MEDICARE COMPLETE / Product Type: *No Product type* / Secondary Insurance: N/A Plan for discharge is: Home w/ Services Outpatient Agency/Support Group Needs: Homecare agency, Agency Choices: [facility] Home Health Services: Medication checks, Registered Nurse, Physical Therapy Agency Referrals: [facility] [address] [place] [address] RN / PT Routed 06/10 Transportation: family [...] with home health services when medically ready. powder blender and pourer/Licensed Vocational Nurse will continue to follow patient???s progress and remain available if situation changes for coordination of care, psychosocial support and/or discharge planning. Anticipated Date of Discharge: 06/18/2024 Mariia Montero RN Extension [phone] * Plan of Care - Migel Javire RN - 06/09/2024 6:22 PM EST OUTCOME [...] No Patient is insured through: Primary Insurance: [employer] MEDICARE Payor: [employer] MANAGED MEDICARE / Plan: [facility] MANAGED MEDICARE COMPLETE / Product Type: *No [...] consult for high risk PCI vs CABG powder blender and pourer/Licensed Vocational Nurse will continue to follow patient???s progress and remain available if situation changes for coordination of care, psychosocial support and/or discharge planning. Anticipated Date of Discharge: 06/11/2024 Mariia Montero RN Extension [phone] * Plan of Care - Becca Hope [...] Bleeding (Cardiac Catheterization) Goal: Absence of Bleeding 06/07/2024656 by Becca Hope RN Outcome: Ongoing (Interventions Implemented as Appropriate) 06/07/2024306 by Becca Hope RN Outcome: Ongoing (Interventions Implemented as Appropriate) Problem: Embolism (Cardiac Catheterization) Goal: Absence of Embolism Signs and Symptoms 06/07/2024656 by Becca Hope RN Outcome: Ongoing [...] as Appropriate) * Consult Note - Alejandra BaumannJOSÉ ANTONIO - 06/06/2024 12:24 PM EST Diabetes Management Team Inpatient Consult Date of Consultation: 06/06/2024 Consult Requested by:Cardiology S2 Reason for Consultation:69 y.o. male with CAD, ischemic cardiomyopathy with HFrEF (~30% EF), prior AR with stents, DM type 2, HTN, HLD, [...] CABG and to provide a review of retirement diabetes care. Diabetes History: George Mehta has [...] Breakfast- varies - eggs with khoury or sinhala muffin Lunch- turkey sandwich Supper- meat and [...] heparin (porcine) infusion 1,400 Units/hr (06/06/24 0429) PRN: insulin lispro, potassium chloride ER OR [...] ischemic cardiomyopathy with HFrEF (~30% EF), prior AR with stents, DM type 2, HTN, HLD, [...] Baumann APRN Endocrinology Diabetes Management Service Pager: [phone] Weekends please page [phone] 80 minute visit was spent in counseling [...] mid to high 80's. PLAN MOVING FORWARD: [facility] draws w/ AM labs. Continue with CT [...] of Care Goal: Plan of Care Review 06/05/2024631 by Migel Javier RN Outcome: Ongoing [...] y.o. male with a PMHx of previous AR s/p PCI x3, ICM/HFrEF (LVEF 30%) s/p ICD, DMII, HTN, HLD, remote melanoma, and smoker who presented to [facility] last night via EMS after developing acute, severe chest pain while watching TV. Patient was ruled in for STEMI, given TNK, ASA, plavix, heparin gtt, and sent to [facility] [place] coronary [place]. LHC demonstrated severely calcified left coronary system with notable LCx 75/80% lesions and PHOTO FINISH PHOTOGRAPHER OM1 with ISR with collateral retrograde filling, [...] elevation myocardial infarction) Past Medical History: previous AR s/p PCI x3 ICM/HFrEF (LVEF 30%) s/p [...] is large. OM1 appears to be a PHOTO FINISH PHOTOGRAPHER, with in stentrestenosis and fills retrograde via [...] y.o. male admitted with STEMI s/p TNK, [facility] showing multivessel CAD including ISR, no culprit [...] to our service. Signed: Paula Treviño PA-C [facility] Section of Cardiac Surgery Date: 06/03/2024 * Initial Assessments - Catina Estrada MSW - 06/03/2024 10:32 AM EDT Office of Care Management Initial Assessment CHINA Humphrey reviewed record and discussed patient with Care Team. Source of Information: Team, bedside nurse, medical record, and Patient TUBE REPAIRER Introduced self/reviewed role; services accepted. Admitted From: Transfer from another hospital Location: [facility] Reason for Hospitalization: Chest Pain while watching TV, doctors said I had a heart attack Past medical History: No past medical history on file. Hospitalizations Within the Past 30 Days: no previous admission in last 30 days Current Decision-Making Capacity: Self If AD's have not been completed the following surrogate would be surrogate decision maker per [place] surrogate decision making law. (Only good for 180 days) Any patient receiving care in [place] must abide by [place] law. The hierarchy for surrogate decision making [...] (i) The agent with financial power of family law attorney or a conservator appointed in accordance [...] homeless or living in a mcc (including now)?: No In the past 12 months has the electric, gas, oil, or water [employer] threatened to shut off services in your [...] in the bathroom) Home Address confirmed as: [address] [place] [address] [address] [facility] [address] Social & Family Supports: All names listed [...] Pertinent/Service Specific Information: Health/Prescription Coverage: Primary Insurance: [facility] MEDICARE Payor: [facility] MEDICARE / Plan: AARP RPPO MANAGED MEDICARE COMPLETE / Product Type: *No Product type* / Secondary Insurance: N/A ; Prescription Coverage: Yes Preferred Pharmacy: [id number] - [facility], [place] - [address] [facility] [address] [place] [address] Status: Patient is a : No Primary Care Provider confirmed: Mauro Berumen MD [phone] Patient/Caregiver Goals of Treatment: Potential Needs for [...] care as indicated. CHINA Min Cardiology, [phone]. [phone] * Brief Op Note - Angeles Gaxiola PA - 06/03/2024 12:23 AM EDT Preliminary Cardiac Catheterization Procedure Note: Patient Name: George Mehta : [id number] MR#: [id number] Case Date: 06/02/2024 - 06/03/2024 Framing Specialist: Surgeons and Role: * Nuha Shen MD - Primary * Angeles Gaxiola PA - Physician Onshore Diver Preoperative diagnosis: STEMI Postoperative diagnosis: * STEMI * Procedure(s) performed: RRA access [facility] Coronary angiogram IVUS LM/LAD/LCX Access: 6 Fr RRA A time-out was conducted prior to the start of the procedure to verify the correct patient and procedure, procedure location, and all relevant critical information. Preliminary findings: 69 year old current smoker (1-2 cigarette's per day), DM type 2, hypertension, dyslipidemia, ICD for HFrEF/low EF (~30%), CAD with prior AR and 3 stents historically (in [place]) who presented to [facility] with 1 hour of rest chest pain [...] is large. OM1 appears to be a PHOTO FINISH PHOTOGRAPHER, with in stentrestenosis and fills retrograde via [...] receive 40 mg of lasix in the tin can laborer. Recommendations: surgical consult for possible open revascularization; [...] EST BLOOD GAS ARTERIAL POC Routine 4 2:52 PM EST EKG 12-LEAD STAT 06/14/2024 2:46 PM EST S/P CABG x 3 PREPARE RBC STAT 06/14/2024 2:[address] elevation myocardial infarction (STEMI), unspecified artery COOX, POC Routine 06/14/2024 1:52 PM EST BLOOD GAS ARTERIAL POC Routine 4 12:47 PM EST COOX, POC Routine 06/14/2024 [...] ARTERIAL POC Routine 4 11:27 AM EST PLATELET COUNT PERFORMABLE STAT 06/14/2024 11:23 AM EST SCAN, PERIPHERAL BLOOD STAT 4 11:23 AM EST HEMOGLOBIN AND HEMATOCRIT, BLOOD [...] 8:39 AM EST Unlisted Cardiac Surg Procedure ([id number]) 06/14/2024 7:34 AM EST 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) 06/14/2024 7:34 AM EST CAD Endoscopy W/Video-Asst Vein [place], Cabg ([id number]) 06/14/2024 7:34 AM EST CAD Cabg, Artery-Vein, Two ([id number]) 06/14/2024 7:34 AM EST CAD Cabg, Arterial, Single ([id number]) 06/14/2024 7:34 AM EST CAD TRANSESOPHAGEAL ECHOCARDIOGRAM IN THE OR Routine 06/14/2024 7:20 AM EST Coronary artery disease involving habematolel coronary artery of habematolel heart without angina pectoris POC, GLUCOSE Routine [...] * POC, GLUCOSE (06/21/2024 3:51 AM EST) [facility] Glucometer, POC 142 65 - 199 mg/dL 06/21/2024 3:51 AM EST [facility] Comment:Supplemental ranges: <140 mg/dL before meals <180 mg/dL all other times of the day. Blood CAPILLARY BLOOD / Unknown 06/21/2024 3:51 AM EST 06/21/2024 3:51 AM EST Bobby Loja MD POINT OF CARE TEST O RDERABLES [facility] [place] [address] * (ABNORMAL) Basic Metabolic Panel (06/21/2024 2:09 AM EST) Glucose 169 65 - 199 mg/dL 06/21/2024 3:10 AM EST [facility] Comment:Glucose Concentratio n >=200 mg/dL plus symptoms is consistent with Diabetes Mellitus. Blood Urea Nitrogen 27(H) 10 - 20 mg/dL 06/21/2024 3:10 AM EST [facility] Creatinine 1.24 0.80 - 1.50 mg/dL 06/21/2024 3:10 AM [facility] Sodium 138 135 - 145 mMol/L 06/21/2024 3:10 AM [facility] Potassium 4.2 3.5 - 5.0 mMol/L 06/21/2024 3:10 AM [facility] Chloride 100 98 - 107 mMol/L 06/21/2024 3:10 AM [facility] Carbon Dioxide 27 22 - 31 mMol/L 06/21/2024 3:10 AM [facility] Anion Gap 11 5 - 15 mMol/L 06/21/2024 3:10 AM [facility] Calcium 8.7 8.5 - 10.5 mg/dL 06/21/2024 3:10 AM [facility] Est Glomerular Filtration Rate - Male 64 mL/min/1. 73 m?? 06/21/2024 3:10 AM [facility] Comment: This patient's estimated GFR was [...] APRN CHEMISTRY ORDERABL ES Performing Organization Address City/[facility] [address]/ZIP Co de Phone Number [facility] [place] [address] * POC, GLUCOSE (06/21/2024 12:04 AM EST) Glucometer, POC 157 65 - 199 mg/dL 06/21/2024 12:04 AM EST [facility] Comment:Supplemental ranges: <140 mg/dL before meals <180 mg/dL all other times of the day. Blood CAPILLARY BLOOD / Unknown 06/21/2024 12:04 AM EST 06/21/2024 12:04 AM EST Bobby Loja MD POINT OF CARE TEST O NIKA Performing Organization Address [facility] [address]/[facility] Co de Phone Number [facility] [place] [address] * POC, GLUCOSE (06/20/2024 11:14 PM EST) Glucometer, POC 67 65 - 199 mg/dL 06/20/2024 11:14 PM EST [facility] Comment:Supplemental ranges: <140 mg/dL before meals <180 mg/dL all other times of the day. Blood CAPILLARY BLOOD / Unknown 06/20/2024 11:14 PM EST 06/20/2024 11:14 PM EST Bobby Loja MD POINT OF CARE TEST O RDERAPIETER Performing Organization Address City/[facility] [address]/ZIP Co de Phone Number [facility] [place] [address] * POC, GLUCOSE (06/20/2024 7:16 PM EST) Glucometer, POC 132 65 - 199 mg/dL 06/20/2024 7:16 PM EST [facility] Comment:Supplemental ranges: <140 mg/dL before meals <180 mg/dL all other times of the day. Blood CAPILLARY BLOOD / Unknown 06/20/2024 7:16 PM EST 06/20/2024 7:16 PM EST Bobby Loja MD POINT OF CARE TEST O NIKA Performing Organization Address City/[facility] [address]/ZIP Co de Phone Number [facility] [place] [address] * POC, GLUCOSE (06/20/2024 3:39 PM EST) Glucometer, POC 124 65 - 199 mg/dL 06/20/2024 3:40 PM EST [facility] Comment:Supplemental ranges: <140 mg/dL before meals <180 mg/dL all other times of the day. Blood CAPILLARY BLOOD / Unknown 06/20/2024 3:39 PM EST 06/20/2024 3:40 PM EST Bobby Loja MD POINT OF CARE TEST O NIKA Performing Organization Address [facility] [address]/[facility] Co de Phone Number [facility] [place] [address] * POC, GLUCOSE (06/20/2024 12:02 PM EST) Glucometer, POC 173 65 - 199 mg/dL 06/20/2024 12:03 PM EST [facility] Comment:Supplemental ranges: <140 mg/dL before meals <180 mg/dL all other times of the day. Blood CAPILLARY BLOOD / Unknown 06/20/2024 12:02 PM EST 06/20/2024 12:03 PM EST Bobby Loja MD POINT OF CARE TEST O NIKA Performing Organization Address City/[facility] [address]/ZIP Co de Phone Number [facility] [place] [address] * POC, GLUCOSE (06/20/2024 7:10 AM EST) Glucometer, POC 130 65 - 199 mg/dL 06/20/2024 7:11 AM EST [facility] Comment:Supplemental ranges: <140 mg/dL before meals <180 mg/dL all other times of the day. Blood CAPILLARY BLOOD / Unknown 06/20/2024 7:10 AM EST 06/20/2024 7:11 AM EST Bobby Loja MD POINT OF CARE TEST O RDERABLES [facility] [place] [address] * (ABNORMAL) Basic Metabolic Panel (06/20/2024 2:28 AM EST) Glucose 79 65 - 199 mg/dL 06/20/2024 3:06 AM [facility] Comment:Glucose Concentratio n >=200 mg/dL plus symptoms is consistent with Diabetes Mellitus. Blood Urea Nitrogen 38(H) 10 - 20 mg/dL 06/20/2024 3:06 AM [facility] Creatinine 1.39 0.80 - 1.50 mg/dL 06/20/2024 3:06 AM [facility] Sodium 137 135 - 145 mMol/L 06/20/2024 3:06 AM [facility] Potassium 3.6 3.5 - 5.0 mMol/L 06/20/2024 3:06 AM [facility] Chloride 100 98 - 107 mMol/L 06/20/2024 3:06 AM [facility] Carbon Dioxide 29 22 - 31 mMol/L 06/20/2024 3:06 AM [facility] Anion Gap 8 5 - 15 mMol/L 06/20/2024 3:06 AM [facility] Calcium 8.4(L) 8.5 - 10.5 mg/dL 06/20/2024 3:06 AM [facility] Est Glomerular Filtration Rate - Male 56 mL/min/1. 73 m?? 06/20/2024 3:06 AM EST [facility] Comment: This patient's estimated GFR [...] APRN CHEMISTRY ORDERABL ES Performing Organization Address City/[facility] [address]/ZIP Co de Phone Number [facility] [place] [address] * POC, GLUCOSE (06/20/2024 12:32 AM EST) Glucometer, POC 86 65 - 199 mg/dL 06/20/2024 12:32 AM EST [facility] Comment:Supplemental ranges: <140 mg/dL before meals <180 mg/dL all other times of the day. Blood CAPILLARY BLOOD / Unknown 06/20/2024 12:32 AM EST 06/20/2024 12:32 AM EST Bobby Loja MD POINT OF CARE TEST O RDERABLES [facility] [place] [address] * (ABNORMAL) POC, GLUCOSE (06/20/2024 12:02 AM EST) Glucometer, POC 59(L) 65 - 199 mg/dL 06/20/2024 12:02 AM EST [facility] Comment:Supplemental ranges: <140 mg/dL before meals <180 mg/dL all other times of the day. Blood CAPILLARY BLOOD / Unknown 06/20/2024 12:02 AM EST 06/20/2024 12:03 AM EST Narrative Authorizing Provider Result Saranya Loja MD POINT OF CARE TEST O NIKA Performing Organization Address City/[facility] [address]/[facility] Co de Phone Number [facility] [place] [address] * POC, GLUCOSE (06/19/2024 8:15 PM EST) Glucometer, POC 131 65 - 199 mg/dL 06/19/2024 8:15 PM EST [facility] Comment:Supplemental ranges: <140 mg/dL before meals <180 mg/dL all other times of the day. Blood CAPILLARY BLOOD / Unknown 06/19/2024 8:15 PM EST 06/19/2024 8:15 PM EST Bobby Loja MD POINT OF CARE TEST O NIKA Performing Organization Address [facility] [address]/[facility] Co de Phone Number [facility] [place] [address] * POC, GLUCOSE (06/19/2024 6:01 PM EST) Glucometer, POC 129 65 - 199 mg/dL 06/19/2024 6:01 PM EST [facility] Comment:Supplemental ranges: <140 mg/dL before meals <180 mg/dL all other times of the day. Blood CAPILLARY BLOOD / Unknown 06/19/2024 6:01 PM EST 06/19/2024 6:02 PM EST Narrative Authorizing Provider Result Saranya Loja MD POINT OF CARE TEST O NIKA Performing Organization Address City/[facility] [address]/[facility] Co de Phone Number [facility] [place] [address] * POC, GLUCOSE (06/19/2024 4:51 PM EST) Glucometer, POC 155 65 - 199 mg/dL 06/19/2024 4:51 PM EST [facility] Comment:Supplemental ranges: <140 mg/dL before meals <180 mg/dL all other times of the day. Blood CAPILLARY BLOOD / Unknown 06/19/2024 4:51 PM EST 06/19/2024 4:51 PM EST Bobby Loja MD POINT OF CARE TEST O NIKA Performing Organization Address City/[facility] [address]/ZIP Co de Phone Number [facility] [place] [address] * POC, GLUCOSE (06/19/2024 12:37 PM EST) Glucometer, POC 136 65 - 199 mg/dL 06/19/2024 12:37 PM EST [facility] Comment:Supplemental ranges: <140 mg/dL before meals <180 mg/dL all other times of the day. Blood CAPILLARY BLOOD / Unknown 06/19/2024 12:37 PM EST 06/19/2024 12:37 PM EST Bobby Loja MD POINT OF CARE TEST O NIKA Performing Organization Address [facility] [address]/[facility] [facility] Co de Phone Number [facility] [place] [address] * POC, GLUCOSE (06/19/2024 11:20 AM EST) Glucometer, POC 185 65 - 199 mg/dL 06/19/2024 11:21 AM EST [facility] Comment:Supplemental ranges: <140 mg/dL before meals <180 mg/dL all other times of the day. Blood CAPILLARY BLOOD / Unknown 06/19/2024 11:20 AM EST 06/19/2024 11:21 AM EST Bobby Loja MD POINT OF CARE TEST O RALPHERAPIETER Performing Organization Address City/[facility] [address]/ZIP Co de Phone Number [facility] [place] [address] * POC, GLUCOSE (06/19/2024 7:21 AM EST) Glucometer, POC 125 65 - 199 mg/dL 06/19/2024 7:21 AM EST [facility] Comment:Supplemental ranges: <140 mg/dL before meals <180 mg/dL all other times of the day. Blood CAPILLARY BLOOD / Unknown 06/19/2024 7:21 AM EST 06/19/2024 7:22 AM EST Bobby Loja MD POINT OF CARE TEST O NIKA Performing Organization Address City/[facility] [address]/ZIP Co de Phone Number [facility] [place] [address] * POC, GLUCOSE (06/19/2024 4:52 AM EST) Glucometer, POC 125 65 - 199 mg/dL 06/19/2024 4:52 AM EST [facility] Comment:Supplemental ranges: <140 mg/dL before meals <180 mg/dL all other times of the day. Blood CAPILLARY BLOOD / Unknown 06/19/2024 4:52 AM EST 06/19/2024 4:52 AM EST Bobby Loja MD POINT OF CARE TEST O NIKA Performing Organization Address City/[facility] [address]/ZIP Co de Phone Number [facility] [place] [address] * POC, GLUCOSE (06/19/2024 4:13 AM EST) Glucometer, POC 67 65 - 199 mg/dL 06/19/2024 4:13 AM EST [facility] Comment:Supplemental ranges: <140 mg/dL before meals <180 mg/dL all other times of the day. Blood CAPILLARY BLOOD / Unknown 06/19/2024 4:13 AM EST 06/19/2024 4:13 AM EST Bobby Loja MD POINT OF CARE TEST O NIKA [facility] [place] [address] * (ABNORMAL) POC, GLUCOSE (06/19/2024 3:48 AM EST) Glucometer, POC 51(LLL) 65 - 199 mg/dL 06/19/2024 3:48 AM EST [facility] Comment:Supplemental ranges: <140 mg/dL before meals <180 mg/dL all other times of the day. Blood CAPILLARY BLOOD / Unknown 06/19/2024 3:48 AM EST 06/19/2024 3:48 AM EST Bobby Loja MD POINT OF CARE TEST O RDERAPIETER [facility] [place] [address] * (ABNORMAL) Basic Metabolic Panel (06/19/2024 3:44 AM EST) Glucose 53(LLL) 65 - 199 mg/dL 06/19/2024 4:48 AM EST [facility] Comment:Glucose Concentratio n >=200 mg/dL plus symptoms is consistent with Diabetes Mellitus. Blood Urea Nitrogen 42(H) 10 - 20 mg/dL 06/19/2024 4:48 AM [facility] Creatinine 1.29 0.80 - 1.50 mg/dL 06/19/2024 4:48 AM [facility] Sodium 138 135 - 145 mMol/L 06/19/2024 4:48 AM [facility] Potassium 3.6 3.5 - 5.0 mMol/L 06/19/2024 4:48 AM [facility] Chloride 100 98 - 107 mMol/L 06/19/2024 4:48 AM [facility] Carbon Dioxide 29 22 - 31 mMol/L 06/19/2024 4:48 AM [facility] Anion Gap 9 5 - 15 mMol/L 06/19/2024 4:48 AM [facility] Calcium 8.8 8.5 - 10.5 mg/dL 06/19/2024 4:48 AM EST [facility] Est Glomerular Filtration Rate - Male 61 mL/min/1. 73 m?? 06/19/2024 4:48 AM EST [facility] Comment: This patient's estimated GFR [...] APRN CHEMISTRY ORDERABL ES Performing Organization Address City/[facility] [address]/ZIP Co de Phone Number [facility] [place] [address] * POC, GLUCOSE (06/19/2024 12:23 AM EST) Glucometer, POC 82 65 - 199 mg/dL 06/19/2024 12:23 AM EST [facility] Comment:Supplemental ranges: <140 mg/dL before meals <180 mg/dL all other times of the day. Blood CAPILLARY BLOOD / Unknown 06/19/2024 12:23 AM EST 06/19/2024 12:23 AM EST Bobby Loja MD POINT OF CARE TEST O RDERABLES [facility] [place] [address] * POC, GLUCOSE (06/18/2024 11:08 PM EST) Glucometer, POC 73 65 - 199 mg/dL 06/18/2024 11:08 PM EST [facility] Comment:Supplemental ranges: <140 mg/dL before meals <180 mg/dL all other times of the day. Blood CAPILLARY BLOOD / Unknown 06/18/2024 11:08 PM EST 06/18/2024 11:08 PM EST Bobby Loja MD POINT OF CARE TEST O NIKA Performing Organization Address City/[facility] [address]/ZIP Co de Phone Number [facility] [place] [address] * POC, GLUCOSE (06/18/2024 7:32 PM EST) Glucometer, POC 167 65 - 199 mg/dL 06/18/2024 7:32 PM EST [facility] Comment:Supplemental ranges: <140 mg/dL before meals <180 mg/dL all other times of the day. Blood CAPILLARY BLOOD / Unknown 06/18/2024 7:32 PM EST 06/18/2024 7:32 PM EST Bobby Loja MD POINT OF CARE TEST O NIKA Performing Organization Address [facility] [address]/[facility] Co de Phone Number [facility] [place] [address] * POC, GLUCOSE (06/18/2024 6:08 PM EST) Glucometer, POC 140 65 - 199 mg/dL 06/18/2024 6:09 PM EST [facility] Comment:Supplemental ranges: <140 mg/dL before meals <180 mg/dL all other times of the day. Blood CAPILLARY BLOOD / Unknown 06/18/2024 6:08 PM EST 06/18/2024 6:09 PM EST Bobby Loja MD POINT OF CARE TEST O NIKA Performing Organization Address City/[facility] [address]/ZIP Co de Phone Number [facility] [place] [address] * POC, GLUCOSE (06/18/2024 4:17 PM EST) Glucometer, POC 144 65 - 199 mg/dL 06/18/2024 4:17 PM EST [facility] Comment:Supplemental ranges: <140 mg/dL before meals <180 mg/dL all other times of the day. Blood CAPILLARY BLOOD / Unknown 06/18/2024 4:17 PM EST 06/18/2024 4:17 PM EST Bobby Loja MD POINT OF CARE TEST O NIKA Performing Organization Address [facility] [address]/ZIP Co de Phone Number [facility] [place] [address] * POC, GLUCOSE (06/18/2024 12:09 PM EST) Glucometer, POC 180 65 - 199 mg/dL 06/18/2024 12:09 PM EST [facility] Comment:Supplemental ranges: <140 mg/dL before meals <180 mg/dL all other times of the day. Blood CAPILLARY BLOOD / Unknown 06/18/2024 12:09 PM EST 06/18/2024 12:09 PM EST Bobby Loja MD POINT OF CARE TEST O NIKA Performing Organization Address [facility] [address]/ZIP Co de Phone Number [facility] [place] [address] * POC, GLUCOSE (06/18/2024 7:49 AM EST) Glucometer, POC 125 65 - 199 mg/dL 06/18/2024 7:50 AM EST [facility] Comment:Supplemental ranges: <140 mg/dL before meals <180 mg/dL all other times of the day. Blood CAPILLARY BLOOD / Unknown 06/18/2024 7:49 AM EST 06/18/2024 7:50 AM EST Bobby Loja MD POINT OF CARE TEST O NIKA [facility] [place] [address] * (ABNORMAL) Basic Metabolic Panel (06/18/2024 4:19 AM EST) Glucose 103 65 - 199 mg/dL 06/18/2024 5:03 AM [facility] Comment:Glucose Concentratio n >=200 mg/dL plus symptoms is consistent with Diabetes Mellitus. Blood Urea Nitrogen 43(H) 10 - 20 mg/dL 06/18/2024 5:03 AM [facility] Creatinine 1.45 0.80 - 1.50 mg/dL 06/18/2024 5:03 AM [facility] Sodium 131(L) 135 - 145 mMol/L 06/18/2024 5:03 AM [facility] Potassium 4.2 3.5 - 5.0 mMol/L 06/18/2024 5:03 AM [facility] Chloride 97(L) 98 - 107 mMol/L 06/18/2024 5:03 AM [facility] Carbon Dioxide 25 22 - 31 mMol/L 06/18/2024 5:03 AM [facility] Anion Gap 9 5 - 15 mMol/L 06/18/2024 5:03 AM [facility] Calcium 8.5 8.5 - 10.5 mg/dL 06/18/2024 5:03 AM [facility] Est Glomerular Filtration Rate - Male 53 mL/min/1. 73 m?? 06/18/2024 5:03 AM [facility] Comment: This patient's estimated GFR was [...] APRN CHEMISTRY ORDERABL ES Performing Organization Address City/[facility] [address]/ZIP Co de Phone Number [facility] [place] [address] * POC, GLUCOSE (06/18/2024 3:50 AM EST) Glucometer, POC 99 65 - 199 mg/dL 06/18/2024 3:51 AM EST [facility] Comment:Supplemental ranges: <140 mg/dL before meals <180 mg/dL all other times of the day. Blood CAPILLARY BLOOD / Unknown 06/18/2024 3:50 AM EST 06/18/2024 3:51 AM EST Bobby Loja MD POINT OF CARE TEST O NIKA Performing Organization Address [facility] [address]/[facility] Co de Phone Number [facility] [place] [address] * POC, GLUCOSE (06/17/2024 11:10 PM EST) Glucometer, POC 92 65 - 199 mg/dL 06/17/2024 11:10 PM EST [facility] Comment:Supplemental ranges: <140 mg/dL before meals <180 mg/dL all other times of the day. Blood CAPILLARY BLOOD / Unknown 06/17/2024 11:10 PM EST 06/17/2024 11:10 PM EST Bobby Loja MD POINT OF CARE TEST O NIKA Performing Organization Address City/[facility] [address]/ZIP Co de Phone Number [facility] [place] [address] * POC, GLUCOSE (06/17/2024 7:54 PM EST) Glucometer, POC 126 65 - 199 mg/dL 06/17/2024 7:54 PM EST [facility] Comment:Supplemental ranges: <140 mg/dL before meals <180 mg/dL all other times of the day. Blood CAPILLARY BLOOD / Unknown 06/17/2024 7:54 PM EST 06/17/2024 7:54 PM EST Bobby Loja MD POINT OF CARE TEST O NIKA Performing Organization Address [facility] [address]/[facility] Co de Phone Number [facility] [place] [address] * POC, GLUCOSE (06/17/2024 4:07 PM EST) Glucometer, POC 141 65 - 199 mg/dL 06/17/2024 4:12 PM EST [facility] Comment:Supplemental ranges: <140 mg/dL before meals <180 mg/dL all other times of the day. Blood CAPILLARY BLOOD / Unknown 06/17/2024 4:07 PM EST 06/17/2024 4:12 PM EST Bobby Loja MD POINT OF CARE TEST O NIKA Performing Organization Address [facility] [address]/[facility] de Phone Number [facility] [place] [address] * XR Chest PA & Lateral (Generic) (06/17/2024 1:46 PM EST) WORKSTATION ID [id number] RAD Anatomical Region Laterality Modality Chest N/A [...] who have questions please contact the health youth care worker that requested your imaging first. ? Electronically signed by: Josselyn Spence MD, [facility] ([phone]), at 06/17/2024 4:49 PM Narrative 06/17/2024 4:49 [...] patients who have questions please contactthe health youth care worker that requested your imaging first. Electronically signed by: Josselyn Spence MD, [facility]([phone]), at 06/17/2024 4:49 PM Keila Hanley APRN IMG DX ORDERABLES * (ABNORMAL) POC, GLUCOSE (06/17/2024 11:04 AM EST) Glucometer, POC 245(H) 65 - 199 mg/dL 06/17/2024 11:04 AM EST [facility] Comment:Supplemental ranges: <140 mg/dL before meals <180 mg/dL all other times of the day. Blood CAPILLARY BLOOD / Unknown 06/17/2024 11:04 AM EST 06/17/2024 11:04 AM EST Bobby Loja MD POINT OF CARE TEST O NIKA Performing Organization Address [facility] [address]/[facility] Co de Phone Number [facility] [place] [address] * POC, GLUCOSE (06/17/2024 7:49 AM EST) Glucometer, POC 141 65 - 199 mg/dL 06/17/2024 7:55 AM EST [facility] Comment:Supplemental ranges: <140 mg/dL before meals <180 mg/dL all other times of the day. Blood CAPILLARY BLOOD / Unknown 06/17/2024 7:49 AM EST 06/17/2024 7:55 AM EST Bobby Loja MD POINT OF CARE TEST O NIKA Performing Organization Address [facility] [address]/[facility] Co de Phone Number [facility] [place] [address] * POC, GLUCOSE (06/17/2024 4:16 AM EST) Glucometer, POC 139 65 - 199 mg/dL 06/17/2024 4:16 AM EST [facility] Comment:Supplemental ranges: <140 mg/dL before meals <180 mg/dL all other times of the day. Blood CAPILLARY BLOOD / Unknown 06/17/2024 4:16 AM EST 06/17/2024 4:17 AM EST Bobby Loja MD POINT OF CARE TEST O RDERABLES [facility] [place] [address] * Lactate, Whole Blood (06/17/2024 2:39 AM EST) [facility] Lactate, Whole Blood 1.3 0.5 - 2.2 mmol/L 06/17/2024 2:46 AM EST [facility] Blood VENOUS BLOOD SPECIMEN / Unknown Venipuncture / Unknown 06/17/2024 2:39 AM EST 06/17/2024 2:43 AM EST Bobby Loja MD CHEMISTRY ORDERABLES [facility] [place] [address] * (ABNORMAL) Hemogram (06/17/2024 2:39 AM EST) [facility] White Blood Cell 13.53(H) 4.00 - 9.50 x10(3)/mc L 06/17/2024 2:53 AM [facility] Red Blood Cell 3.55(L) 4.58 - 5.54 x10(6)/mc L 06/17/2024 2:53 AM [facility] Hemoglobin 10.8(L) 13.7 - 16.5 g/dL 06/17/2024 2:53 AM [facility] Hematocrit 33.0(L) 40.5 - 48.5 % 06/17/2024 2:53 AM [facility] Mean Cell Volume 93.0 82.9 - 93.1 fL 06/17/2024 2:53 AM [facility] Mean Cell Hemoglobin 30.4 27.5 - 32.1 pg 06/17/2024 2:53 AM [facility] Mean Cell Hemoglobin Concentration 32.7 32.0 - 35.7 g/dL 06/17/2024 2:53 AM [facility] Platelet 101(L) 145 - 357 x10(3)/mc L 06/17/2024 2:53 AM [facility] Mean Platelet Volume 10.4 7.6 - 12.9 fL 06/17/2024 2:53 AM [facility] RDW Standard Deviation 48.4(H) 36.0 - 45.0 fL 06/17/2024 2:53 AM [facility] RDW coefficient of variation 14.1(H) 11.4 - 13.8 % 06/17/2024 2:53 AM [facility] NRBC% auto 0.0 % 06/17/2024 2:53 AM [facility] NRBC Absolute <0.01 <0.01 x10(3)/mc L 06/17/2024 2:53 AM [facility] Blood VENOUS BLOOD SPECIMEN / Unknown Venipuncture / Unknown 06/17/2024 2:39 AM EST 06/17/2024 2:43 AM EST Bobby Loja MD HEMATOLOGY ORDERABLE S [facility] [place] [address] * (ABNORMAL) Basic Metabolic Panel (06/17/2024 2:39 AM EST) Glucose 149 65 - 199 mg/dL 06/17/2024 3:14 AM [facility] Comment:Glucose Concentratio n >=200 mg/dL plus symptoms is consistent with Diabetes Mellitus. Blood Urea Nitrogen 42(H) 10 - 20 mg/dL 06/17/2024 3:14 AM [facility] Creatinine 1.52(H) 0.80 - 1.50 mg/dL 06/17/2024 3:14 AM [facility] Sodium 133(L) 135 - 145 mMol/L 06/17/2024 3:14 AM [facility] Potassium 4.5 3.5 - 5.0 mMol/L 06/17/2024 3:14 AM [facility] Chloride 101 98 - 107 mMol/L 06/17/2024 3:14 AM EST [facility] Carbon Dioxide 23 22 - 31 mMol/L 06/17/2024 3:14 AM [facility] Anion Gap 9 5 - 15 mMol/L 06/17/2024 3:14 AM [facility] Calcium 8.8 8.5 - 10.5 mg/dL 06/17/2024 3:14 AM EST [facility] Est Glomerular Filtration Rate - Male 50 mL/min/1. 73 m?? 06/17/2024 3:14 AM EST [facility] Comment: This patient's estimated GFR [...] Loja MD CHEMISTRY ORDERABLES Performing Organization Address City/State/[facility] Co de Phone Number [facility] [place] [address] * (ABNORMAL) POC, GLUCOSE (06/17/2024 12:13 AM EST) Glucometer, POC 211(H) 65 - 199 mg/dL 06/17/2024 12:13 AM EST [facility] Comment:Supplemental ranges: <140 mg/dL before meals <180 mg/dL all other times of the day. Blood CAPILLARY BLOOD / Unknown 06/17/2024 12:13 AM EST 06/17/2024 12:14 AM EST Bobby Loja MD POINT OF CARE TEST O RDERABLES Performing Organization Address City/[facility] [address]/[facility] Co de Phone Number [facility] [place] [address] * (ABNORMAL) POC, GLUCOSE (06/16/2024 7:22 PM EST) Glucometer, POC 229(H) 65 - 199 mg/dL 06/16/2024 7:22 PM EST [facility] Comment:Supplemental ranges: <140 mg/dL before meals <180 mg/dL all other times of the day. Blood CAPILLARY BLOOD / Unknown 06/16/2024 7:22 PM EST 06/16/2024 7:22 PM EST Bobby Loja MD POINT OF CARE TEST O NIKA Performing Organization Address [facility] [address]/[facility] Co de Phone Number [facility] [place] [address] * (ABNORMAL) POC, GLUCOSE (06/16/2024 6:14 PM EST) Glucometer, POC 220(H) 65 - 199 mg/dL 06/16/2024 6:14 PM EST [facility] Comment:Supplemental ranges: <140 mg/dL before meals <180 mg/dL all other times of the day. Blood CAPILLARY BLOOD / Unknown 06/16/2024 6:14 PM EST 06/16/2024 6:14 PM EST Bobby Loja MD POINT OF CARE TEST O NIKA Performing Organization Address City/[facility] [address]/[facility] Co de Phone Number [facility] [place] [address] * Lactate, Whole Blood (06/16/2024 6:14 PM EST) Lactate, Whole Blood 1.8 0.5 - 2.2 mmol/L 06/16/2024 6:27 PM EST [facility] Blood VENOUS BLOOD SPECIMEN / Unknown Venipuncture / Unknown 06/16/2024 6:14 PM EST 06/16/2024 6:25 PM EST Bobby Loja MD CHEMISTRY ORDERABLES Performing Organization Address [facility] [address]/[facility] Co de Phone Number [facility] [place] [address] * (ABNORMAL) POC, GLUCOSE (06/16/2024 4:14 PM EST) Glucometer, POC 240(H) 65 - 199 mg/dL 06/16/2024 4:14 PM EST [facility] Comment:Supplemental ranges: <140 mg/dL before meals <180 mg/dL all other times of the day. Blood CAPILLARY BLOOD / Unknown 06/16/2024 4:14 PM EST 06/16/2024 4:14 PM EST Bobby Loja MD POINT OF CARE TEST O RDERABLES Performing Organization Address [facility] [address]/[facility] Co de Phone Number [facility] [place] [address] * POC, GLUCOSE (06/16/2024 11:49 AM EST) Glucometer, POC 199 65 - 199 mg/dL 06/16/2024 11:49 AM EST [facility] Comment:Supplemental ranges: <140 mg/dL before meals <180 mg/dL all other times of the day. Blood CAPILLARY BLOOD / Unknown 06/16/2024 11:49 AM EST 06/16/2024 11:49 AM EST Bobby Loja MD POINT OF CARE TEST O NIKA Performing Organization Address [facility] [address]/[facility] Co de Phone Number [facility] [place] [address] * (ABNORMAL) Hemogram (06/16/2024 11:44 AM EST) White Blood Cell 17.91(H) 4.00 - 9.50 x10(3)/mc L 06/16/2024 12:25 PM [facility] Red Blood Cell 3.47(L) 4.58 - 5.54 x10(6)/mc L 06/16/2024 12:25 PM [facility] Hemoglobin 10.5(L) 13.7 - 16.5 g/dL 06/16/2024 12:25 PM [facility] Hematocrit 33.1(L) 40.5 - 48.5 % 06/16/2024 12:25 PM [facility] Mean Cell Volume 95.4(H) 82.9 - 93.1 fL 06/16/2024 12:25 PM [facility] Mean Cell Hemoglobin 30.3 27.5 - 32.1 pg 06/16/2024 12:25 PM [facility] Mean Cell Hemoglobin Concentration 31.7(L) 32.0 - 35.7 g/dL 06/16/2024 12:25 PM [facility] Platelet 101(L) 145 - 357 x10(3)/mc L 06/16/2024 12:25 PM [facility] Mean Platelet Volume 10.6 7.6 - 12.9 fL 06/16/2024 12:25 PM [facility] RDW Standard Deviation 49.5(H) 36.0 - 45.0 fL 06/16/2024 12:25 PM [facility] RDW coefficient of variation 14.2(H) 11.4 - 13.8 % 06/16/2024 12:25 PM [facility] NRBC% auto 0.0 % 06/16/2024 12:25 PM [facility] NRBC Absolute <0.01 <0.01 x10(3)/mc L 06/16/2024 12:25 PM [facility] Blood VENOUS BLOOD SPECIMEN / Unknown Venipuncture / Unknown 06/16/2024 11:44 AM EST 06/16/2024 12:03 PM EST Bobby Loja MD HEMATOLOGY ORDERABLE S Performing Organization Address [facility] [address]/ZIP Co de Phone Number [facility] [place] [address] * Lactate, Whole Blood (06/16/2024 9:02 AM EST) Lactate, Whole Blood 1.8 0.5 - 2.2 mmol/L 06/16/2024 9:19 AM EST [facility] Blood VENOUS BLOOD SPECIMEN / Unknown Venipuncture / Unknown 06/16/2024 9:02 AM EST 06/16/2024 9:17 AM EST Bobby Loja MD CHEMISTRY ORDERABLES Performing Organization Address [facility] [address]/[facility] Co de Phone Number [facility] [place] [address] * POC, GLUCOSE (06/16/2024 7:44 AM EST) Glucometer, POC 129 65 - 199 mg/dL 06/16/2024 7:44 AM EST [facility] Comment:Supplemental ranges: <140 mg/dL before meals <180 mg/dL all other times of the day. Blood CAPILLARY BLOOD / Unknown 06/16/2024 7:44 AM EST 06/16/2024 7:44 AM EST Narrative Authorizing Provider Result Saranya Loja MD POINT OF CARE TEST O RDERABLES Performing Organization Address [facility] [address]/[facility] Co de Phone Number [facility] [place] [address] * POC, GLUCOSE (06/16/2024 4:01 AM EST) Glucometer, POC 158 65 - 199 mg/dL 06/16/2024 4:01 AM EST [facility] Comment:Supplemental ranges: <140 mg/dL before meals <180 mg/dL all other times of the day. Blood CAPILLARY BLOOD / Unknown 06/16/2024 4:01 AM EST 06/16/2024 4:01 AM EST Narrative Authorizing Provider Result Saranya Loja MD POINT OF CARE TEST O RDERABLES [facility] [place] [address] * (ABNORMAL) Basic Metabolic Panel (06/16/2024 2:23 AM EST) Glucose 177 65 - 199 mg/dL 06/16/2024 3:13 AM [facility] Comment:Glucose Concentratio n >=200 mg/dL plus symptoms is consistent with Diabetes Mellitus. Blood Urea Nitrogen 37(H) 10 - 20 mg/dL 06/16/2024 3:13 AM [facility] Creatinine 2.10(H) 0.80 - 1.50 mg/dL 06/16/2024 3:13 AM [facility] Sodium 132(L) 135 - 145 mMol/L 06/16/2024 3:13 AM [facility] Potassium 4.5 3.5 - 5.0 mMol/L 06/16/2024 3:13 AM [facility] Chloride 99 98 - 107 mMol/L 06/16/2024 3:13 AM [facility] Carbon Dioxide 22 22 - 31 mMol/L 06/16/2024 3:13 AM [facility] Anion Gap 11 5 - 15 mMol/L 06/16/2024 3:13 AM [facility] Calcium 9.0 8.5 - 10.5 mg/dL 06/16/2024 3:13 AM [facility] Est Glomerular Filtration Rate - Male 34 mL/min/1. 73 m?? 06/16/2024 3:13 AM [facility] Comment: This patient's estimated GFR was [...] 2:23 AM EST 06/16/2024 2:29 AM EST Narrative Authorizing Provider Result Saranya Loja MD CHEMISTRY ORDERABLES Performing Organization Address [facility] [address]/ZIP Co de Phone Number [facility] [place] [address] * POC, GLUCOSE (06/16/2024 2:21 AM EST) Glucometer, POC 176 65 - 199 mg/dL 06/16/2024 2:31 AM EST [facility] Comment:Supplemental ranges: <140 mg/dL before meals <180 mg/dL all other times of the day. Blood CAPILLARY BLOOD / Unknown 06/16/2024 2:21 AM EST 06/16/2024 2:31 AM EST Narrative Authorizing Provider Result Saranya Loja MD POINT OF CARE TEST O RDERABLES Performing Organization Address [facility] [address] [facility] Co de Phone Number [facility] [place] [address] * (ABNORMAL) POC, GLUCOSE (06/16/2024 12:09 AM EST) Glucometer, POC 222(H) 65 - 199 mg/dL 06/16/2024 12:09 AM EST [facility] Comment:Supplemental ranges: <140 mg/dL before meals <180 mg/dL all other times of the day. Blood CAPILLARY BLOOD / Unknown 06/16/2024 12:09 AM EST 06/16/2024 12:09 AM EST Narrative Authorizing Provider Result Saranya Loja MD POINT OF CARE TEST O RDERABLES Performing Organization Address City/[facility] [address]/ZIP Co de Phone Number [facility] [place] [address] * (ABNORMAL) POC, GLUCOSE (06/15/2024 10:07 PM EST) Glucometer, POC 320(H) 65 - 199 mg/dL 06/15/2024 10:07 PM EST [facility] Comment:Supplemental ranges: <140 mg/dL before meals <180 mg/dL all other times of the day. Blood CAPILLARY BLOOD / Unknown 06/15/2024 10:07 PM EST 06/15/2024 10:07 PM EST Bobby Loja MD POINT OF CARE TEST O NIKA Performing Organization Address [facility] [address]/[facility] Co de Phone Number [facility] [place] [address] * (ABNORMAL) POC, GLUCOSE (06/15/2024 7:56 PM EST) Glucometer, POC 304(H) 65 - 199 mg/dL 06/15/2024 7:56 PM EST [facility] Comment:Supplemental ranges: <140 mg/dL before meals <180 mg/dL all other times of the day. Blood CAPILLARY BLOOD / Unknown 06/15/2024 7:56 PM EST 06/15/2024 7:56 PM EST Bobby Loja MD POINT OF CARE TEST O NIKA Performing Organization Address City/[facility] [address]/[facility] Co de Phone Number [facility] [place] [address] * (ABNORMAL) POC, GLUCOSE (06/15/2024 7:52 PM EST) Glucometer, POC 288(H) 65 - 199 mg/dL 06/15/2024 7:52 PM EST [facility] Comment:Supplemental ranges: <140 mg/dL before meals <180 mg/dL all other times of the day. Blood CAPILLARY BLOOD / Unknown 06/15/2024 7:52 PM EST 06/15/2024 7:52 PM EST Bobby Loja MD POINT OF CARE TEST O NIKA Performing Organization Address City/[facility] [address]/[facility] Co de Phone Number [facility] [place] [address] * POC, GLUCOSE (06/15/2024 4:21 PM EST) Glucometer, POC 192 65 - 199 mg/dL 06/15/2024 4:21 PM EST [facility] Comment:Supplemental ranges: <140 mg/dL before meals <180 mg/dL all other times of the day. Blood CAPILLARY BLOOD / Unknown 06/15/2024 4:21 PM EST 06/15/2024 4:21 PM EST Bobby Loja MD POINT OF CARE TEST O NIKA Performing Organization Address [facility] [address]/[facility] Co de Phone Number [facility] [place] [address] * POC, GLUCOSE (06/15/2024 3:27 PM EST) Glucometer, POC 155 65 - 199 mg/dL 06/15/2024 3:27 PM EST [facility] Comment:Supplemental ranges: <140 mg/dL before meals <180 mg/dL all other times of the day. Blood CAPILLARY BLOOD / Unknown 06/15/2024 3:27 PM EST 06/15/2024 3:27 PM EST Bobby Loja MD POINT OF CARE TEST O NIKA Performing Organization Address City/[facility] [address]/ZIP Co de Phone Number [facility] [place] [address] * POC, GLUCOSE (06/15/2024 2:23 PM EST) Glucometer, POC 160 65 - 199 mg/dL 06/15/2024 2:23 PM EST [facility] Comment:Supplemental ranges: <140 mg/dL before meals <180 mg/dL all other times of the day. Blood CAPILLARY BLOOD / Unknown 06/15/2024 2:23 PM EST 06/15/2024 2:23 PM EST Bobby Loja MD POINT OF CARE TEST O RDBECKIE Performing Organization Address City/[facility] [address]/[facility] Co de Phone Number [facility] [place] [address] * POC, GLUCOSE (06/15/2024 1:26 PM EST) Glucometer, POC 167 65 - 199 mg/dL 06/15/2024 1:26 PM EST [facility] Comment:Supplemental ranges: <140 mg/dL before meals <180 mg/dL all other times of the day. Blood CAPILLARY BLOOD / Unknown 06/15/2024 1:26 PM EST 06/15/2024 1:26 PM EST Bobby Loja MD POINT OF CARE TEST O NIKA Performing Organization Address [facility] [address]/[facility] Co de Phone Number [facility] [place] [address] * (ABNORMAL) POC, GLUCOSE (06/15/2024 12:55 PM EST) Glucometer, POC 210(H) 65 - 199 mg/dL 06/15/2024 12:55 PM EST [facility] Comment:Supplemental ranges: <140 mg/dL before meals <180 mg/dL all other times of the day. Blood CAPILLARY BLOOD / Unknown 06/15/2024 12:55 PM EST 06/15/2024 12:55 PM EST Bobby Loja MD POINT OF CARE TEST O NIKA Performing Organization Address City/[facility] [address] [facility] Co de Phone Number [facility] [place] [address] * (ABNORMAL) POC, GLUCOSE (06/15/2024 11:29 AM EST) Glucometer, POC 220(H) 65 - 199 mg/dL 06/15/2024 11:29 AM EST [facility] Comment:Supplemental ranges: <140 mg/dL before meals <180 mg/dL all other times of the day. Blood CAPILLARY BLOOD / Unknown 06/15/2024 11:29 AM EST 06/15/2024 11:29 AM EST Bobby Loja MD POINT OF CARE TEST O RDERABLES [facility] [place] [address] * (ABNORMAL) Basic Metabolic Panel (06/15/2024 11:23 AM EST) Glucose 215(H) 65 - 199 mg/dL 06/15/2024 12:08 PM [facility] Comment:Glucose Concentratio n >=200 mg/dL plus symptoms is consistent with Diabetes Mellitus. Blood Urea Nitrogen 24(H) 10 - 20 mg/dL 06/15/2024 12:08 PM [facility] Creatinine 1.54(H) 0.80 - 1.50 mg/dL 06/15/2024 12:08 PM [facility] Sodium 135 135 - 145 mMol/L 06/15/2024 12:08 PM [facility] Potassium 4.5 3.5 - 5.0 mMol/L 06/15/2024 12:08 PM [facility] Chloride 105 98 - 107 mMol/L 06/15/2024 12:08 PM [facility] Carbon Dioxide 19(L) 22 - 31 mMol/L 06/15/2024 12:08 PM [facility] Anion Gap 11 5 - 15 mMol/L 06/15/2024 12:08 PM [facility] Calcium 8.3(L) 8.5 - 10.5 mg/dL 06/15/2024 12:08 PM [facility] Est Glomerular Filtration Rate - Male 49 mL/min/1. 73 m?? 06/15/2024 12:08 PM [facility] Comment: This patient's estimated GFR was [...] Loja MD CHEMISTRY ORDERABLES Performing Organization Address [facility] [address] [facility] Co de Phone Number [facility] [place] [address] * POC, GLUCOSE (06/15/2024 10:29 AM EST) Glucometer, POC 189 65 - 199 mg/dL 06/15/2024 10:29 AM EST [facility] Comment:Supplemental ranges: <140 mg/dL before meals <180 mg/dL all other times of the day. Blood CAPILLARY BLOOD / Unknown 06/15/2024 10:29 AM EST 06/15/2024 10:29 AM EST Narrative Authorizing Provider Result Saranya Loja MD POINT OF CARE TEST O RDERABLES Performing Organization Address [facility] [address] [facility] Co de Phone Number [facility] [place] [address] * POC, GLUCOSE (06/15/2024 9:45 AM EST) Glucometer, POC 178 65 - 199 mg/dL 06/15/2024 9:45 AM EST [facility] Comment:Supplemental ranges: <140 mg/dL before meals <180 mg/dL all other times of the day. Blood CAPILLARY BLOOD / Unknown 06/15/2024 9:45 AM EST 06/15/2024 9:45 AM EST Bobby Loja MD POINT OF CARE TEST O NIKA [facility] [place] [address] * (ABNORMAL) Cooximetry, POC (06/15/2024 9:31 AM EST) pO2, Coox 38 mmHg 06/15/2024 9:34 AM [facility] Hemoglobin, Coox 12.9(L) 13.7 - 16.5 g/dL 06/15/2024 9:34 AM [facility] Oxyhemoglobin, Coox 72.1 % 06/15/2024 9:34 AM [facility] Carboxyhemoglo bin, Coox 0.9 % 06/15/2024 9:34 AM [facility] Comment: Nonsmokers: 0.5-1.5% COHB ?? Smokers: Variable ??but usually less than 10% ?? Toxic: 20-30% COHB ?? Lethal: Greater than 60% COHB Methemoglobin, Coox 0.3 <=1.5 % 06/15/2024 9:34 AM [facility] Blood (Mixed Venous) 06/15/2024 9:31 AM EST 06/15/2024 9:34 AM EST Bobby Loja MD POINT OF CARE TEST O NIKA [facility] [place] [address] * Cooximetry, POC (06/15/2024 9:22 AM EST) pO2, Coox 30 mmHg 06/15/2024 9:25 AM [facility] Hemoglobin, Coox 06/15/2024 9:25 AM [facility] Comment:QUES Oxyhemoglobin, Coox 06/15/2024 9:25 AM [facility] Comment:QUES Carboxyhemoglo bin, Coox 06/15/2024 9:25 AM [facility] Comment:QUES Methemoglobin, Coox 06/15/2024 9:25 AM [facility] Comment:QUES Blood (Mixed Venous) 06/15/2024 9:22 AM EST 06/15/2024 9:25 AM EST Bobby Loja MD POINT OF CARE TEST O NIKA [facility] [place] [address] * (ABNORMAL) Blood Gas, Arterial POC (06/15/2024 9:19 AM EST) pH, Arterial 7.31(L) 7.35 - 7.45 06/15/2024 9:21 AM [facility] PCO2, Arterial 36 35 - 45 mmHg 06/15/2024 9:21 AM [facility] PO2, Arterial 94 85 - 104 mmHg 06/15/2024 9:21 AM [facility] Bicarbonate, Arterial 18.0(L) 20.0 - 26.0 mmol/L 06/15/2024 9:21 AM [facility] Base Excess, Arterial -8.2(L) -3.0 - 3.0 mmol/L 06/15/2024 9:21 AM [facility] Hemoglobin, Arterial 12.7(L) 13.7 - 16.5 g/dL 06/15/2024 9:21 AM [facility] Oxyhemoglobin, Arterial 96.0 94.0 - 97.0 % 06/15/2024 9:21 AM [facility] Carboxyhemoglobin , Arterial 0.5 % 06/15/2024 9:21 AM [facility] Comment: Nonsmokers: 0.5-1.5% COHB ?? Smokers: Variable ??but usually less than 10% ?? Toxic: 20-30% COHB ?? Lethal: Greater than 60% COHB Methemoglobin, Arterial 0.3 <=1.5 % 06/15/2024 9:21 AM [facility] Sodium, Arterial 136 135 - 145 mmol/L 06/15/2024 9:21 AM [facility] Potassium, Arterial 4.0 3.5 - 5.0 mmol/L 06/15/2024 9:21 AM [facility] Chloride, Arterial 106 98 - 107 mmol/L 06/15/2024 9:21 AM [facility] Lactate, Arterial 1.7 0.5 - 2.2 mmol/L 06/15/2024 9:21 AM [facility] Flow Rate 2.0 L/min 06/15/2024 9:21 AM [facility] IONIZED CALCIUM, ARTERIAL 1.14(L) 1.15 - 1.33 mmol/L 06/15/2024 9:21 AM [facility] Glucose, Arterial 193 65 - 199 mg/dL 06/15/2024 9:21 AM [facility] Comment:Glucose Concentratio n >=200 mg/dL plus symptoms is consistent with Diabetes Mellitus. Blood ARTERIAL BLOOD / Unknown 06/15/2024 9:19 AM EST 06/15/2024 9:20 AM EST Bobby Loja MD POINT OF CARE TEST O RDERABLES [facility] [place] [address] * (ABNORMAL) POC, GLUCOSE (06/15/2024 8:37 AM EST) Glucometer, POC 204(H) 65 - 199 mg/dL 06/15/2024 8:37 AM [facility] Comment:Supplemental ranges: <140 mg/dL before meals <180 mg/dL all other times of the day. Blood CAPILLARY BLOOD / Unknown 06/15/2024 8:37 AM EST 06/15/2024 8:37 AM EST Bobby Loja MD POINT OF CARE TEST O RDERAPIETER Performing Organization Address [facility] [address]/[facility] de Phone Number [facility] [place] [address] * POC, GLUCOSE (06/15/2024 7:37 AM EST) Glucometer, POC 199 65 - 199 mg/dL 06/15/2024 7:37 AM EST [facility] Comment:Supplemental ranges: <140 mg/dL before meals <180 mg/dL all other times of the day. Blood CAPILLARY BLOOD / Unknown 06/15/2024 7:37 AM EST 06/15/2024 7:38 AM EST Bobby Loja MD POINT OF CARE TEST O NIKA Performing Organization Address [facility] [address]/[facility] de Phone Number [facility] [place] [address] * (ABNORMAL) POC, GLUCOSE (06/15/2024 7:01 AM EST) Glucometer, POC 203(H) 65 - 199 mg/dL 06/15/2024 7:01 AM EST [facility] Comment:Supplemental ranges: <140 mg/dL before meals <180 mg/dL all other times of the day. Blood CAPILLARY BLOOD / Unknown 06/15/2024 7:01 AM EST 06/15/2024 7:01 AM EST Bobby Loja MD POINT OF CARE TEST O NIKA Performing Organization Address [facility] [address]/[facility] Co de Phone Number [facility] [place] [address] * XR Chest One View (06/15/2024 6:31 AM EST) WORKSTATION ID [id number] RAD Anatomical Region Laterality Modality Chest N/A [...] who have questions please contact the health youth care worker that requested your imaging first. ? Electronically signed by: Stuart Aponte MD, [facility] ??([phone]), at 06/15/2024 10:38 AM Narrative 06/15/2024 10:38 [...] patients who have questions please contactthe health youth care worker that requested your imaging first. Electronically signed by: Stuart Aponte MD, [facility]([phone]), at 06/15/2024 10:38 AM Authorizing Provider Result Saranya Loja MD IMG DX ORDERABLES * POC, GLUCOSE (06/15/2024 6:02 AM EST) Glucometer, POC 179 65 - 199 mg/dL 06/15/2024 6:02 AM EST [facility] Comment:Supplemental ranges: <140 mg/dL before meals <180 mg/dL all other times of the day. Blood CAPILLARY BLOOD / Unknown 06/15/2024 6:02 AM EST 06/15/2024 6:02 AM EST Bobby Loja MD POINT OF CARE TEST O RDERAPIETER Performing Organization Address City/[facility] [address]/ZIP Co de Phone Number [facility] [place] [address] * POC, GLUCOSE (06/15/2024 5:06 AM EST) Glucometer, POC 160 65 - 199 mg/dL 06/15/2024 5:06 AM EST [facility] Comment:Supplemental ranges: <140 mg/dL before meals <180 mg/dL all other times of the day. Blood CAPILLARY BLOOD / Unknown 06/15/2024 5:06 AM EST 06/15/2024 5:06 AM EST Narrative Authorizing Provider Result Saranya Loja MD POINT OF CARE TEST O NIKA [facility] [place] [address] * POC, GLUCOSE (06/15/2024 4:05 AM EST) Glucometer, POC 160 65 - 199 mg/dL 06/15/2024 4:06 AM EST [facility] Comment:Supplemental ranges: <140 mg/dL before meals <180 mg/dL all other times of the day. Blood CAPILLARY BLOOD / Unknown 06/15/2024 4:05 AM EST 06/15/2024 4:06 AM EST Bobby Loja MD POINT OF CARE TEST O NIKA Performing Organization Address [facility] [address]/[facility] Co de Phone Number [facility] [place] [address] * POC, GLUCOSE (06/15/2024 3:07 AM EST) Glucometer, POC 151 65 - 199 mg/dL 06/15/2024 3:07 AM EST [facility] Comment:Supplemental ranges: <140 mg/dL before meals <180 mg/dL all other times of the day. Blood CAPILLARY BLOOD / Unknown 06/15/2024 3:07 AM EST 06/15/2024 3:07 AM EST Narrative Authorizing Provider Result Saranya Loja MD POINT OF CARE TEST Abimael MAHER Performing Organization Address [facility] [address]/[facility] Co de Phone Number [facility] [place] [address] * (ABNORMAL) Basic Metabolic Panel (06/15/2024 1:48 AM EST) Glucose 140 65 - 199 mg/dL 06/15/2024 2:38 AM [facility] Comment:Glucose Concentratio n >=200 mg/dL plus symptoms is consistent with Diabetes Mellitus. Blood Urea Nitrogen 21(H) 10 - 20 mg/dL 06/15/2024 2:38 AM [facility] Creatinine 1.27 0.80 - 1.50 mg/dL 06/15/2024 2:38 AM [facility] Sodium 140 135 - 145 mMol/L 06/15/2024 2:38 AM [facility] Potassium 4.4 3.5 - 5.0 mMol/L 06/15/2024 2:38 AM [facility] Chloride 108(H) 98 - 107 mMol/L 06/15/2024 2:38 AM [facility] Carbon Dioxide 23 22 - 31 mMol/L 06/15/2024 2:38 AM EST [facility] Anion Gap 9 5 - 15 mMol/L 06/15/2024 2:38 AM [facility] Calcium 8.3(L) 8.5 - 10.5 mg/dL 06/15/2024 2:38 AM [facility] Est Glomerular Filtration Rate - Male 62 mL/min/1. 73 m?? 06/15/2024 2:38 AM [facility] Comment: This patient's estimated GFR was [...] AM EST Bobby Loja MD CHEMISTRY ORDERABLES [facility] [place] [address] * (ABNORMAL) CBC (with Diff) (06/15/2024 1:48 AM EST) White Blood Cell 11.71(H) 4.00 - 9.50 x10(3)/mc L 06/15/2024 2:13 AM EST [facility] Red Blood Cell 4.14(L) 4.58 - 5.54 x10(6)/mc L 06/15/2024 2:13 AM EST [facility] Hemoglobin 12.5(L) 13.7 - 16.5 g/dL 06/15/2024 2:13 AM [facility] Hematocrit 38.4(L) 40.5 - 48.5 % 06/15/2024 2:13 AM [facility] Mean Cell Volume 92.8 82.9 - 93.1 fL 06/15/2024 2:13 AM [facility] Mean Cell Hemoglobin 30.2 27.5 - 32.1 pg 06/15/2024 2:13 AM [facility] Mean Cell Hemoglobin Concentration 32.6 32.0 - 35.7 g/dL 06/15/2024 2:13 AM [facility] Platelet 101(L) 145 - 357 x10(3)/mc L 06/15/2024 2:13 AM [facility] Mean Platelet Volume 10.0 7.6 - 12.9 fL 06/15/2024 2:13 AM [facility] RDW Standard Deviation 48.8(H) 36.0 - 45.0 fL 06/15/2024 2:13 AM [facility] RDW coefficient of variation 14.2(H) 11.4 - 13.8 % 06/15/2024 2:13 AM [facility] NRBC% auto 0.0 % 06/15/2024 2:13 AM [facility] NRBC Absolute <0.01 <0.01 x10(3)/mc L 06/15/2024 2:13 AM [facility] Neutrophil % 79.7 % 06/15/2024 2:13 AM [facility] Neutrophil Absolute (ANC) - Automated 9.34(H) 1.70 - 6.10 x10(3)/mc L 06/15/2024 2:13 AM [facility] Lymph % 8.0 % 06/15/2024 2:13 AM [facility] Lymph Absolute 0.94 0.90 - 3.20 x10(3)/mc L 06/15/2024 2:13 AM [facility] Monocyte % 11.4 % 06/15/2024 2:13 AM EST [facility] Monocyte Absolute 1.33(H) 0.30 - 0.90 x10(3)/mc L 06/15/2024 2:13 AM EST [facility] Eos % 0.2 % 06/15/2024 2:13 AM EST [facility] Eos Absolute <0.04 0.00 - 0.40 x10(3)/mc L 06/15/2024 2:13 AM EST [facility] Basophil % 0.2 % 06/15/2024 2:13 AM EST [facility] Baso Absolute <0.04 0.00 - 0.10 x10(3)/mc L 06/15/2024 2:13 AM EST [facility] Immature Gran % 0.5 % 2:13 AM [facility] Immature Gran Absolute 0.06(H) 0.00 - 0.04 x10(3)/mc L 06/15/2024 2:13 AM EST [facility] Blood VENOUS BLOOD SPECIMEN / Unknown Venipuncture / Unknown 06/15/2024 1:48 AM EST 06/15/2024 1:52 AM EST Bobby Loja MD HEMATOLOGY ORDERABLE S [facility] [place] [address] * (ABNORMAL) Troponin - Single (06/15/2024 1:48 AM EST) Troponin-T, High Sensitivity 667(H) <=22 ng/L 06/15/2024 2:22 AM EST [facility] Comment: This patient's troponin T [...] troponin value can be found in the [facility] Test Catalog Troponin - [email or web address]/[email or web address] Reference: Fourth [place] Definition of Myocardial Infarction. Journal of the [place] [employer] 2018;72:1745-8485 Blood VENOUS BLOOD SPECIMEN / Unknown Venipuncture / Unknown 06/15/2024 1:48 AM EST 06/15/2024 1:52 AM EST Bobby Loja MD CHEMISTRY ORDERABLES [facility] [place] [address] * (ABNORMAL) Blood Gas, Arterial POC (06/15/2024 1:46 AM EST) pH, Arterial 7.33(L) 7.35 - 7.45 06/15/2024 1:47 AM EST [facility] PCO2, Arterial 40 35 - 45 mmHg 06/15/2024 1:47 AM EST [facility] PO2, Arterial 131(H) 85 - 104 mmHg 06/15/2024 1:47 AM EST [facility] Bicarbonate, Arterial 20.7 20.0 - 26.0 mmol/L 06/15/2024 1:47 AM EST [facility] Base Excess, Arterial -5.2(L) -3.0 - 3.0 mmol/L 06/15/2024 1:47 AM EST [facility] Hemoglobin, Arterial 13.4(L) 13.7 - 16.5 g/dL 06/15/2024 1:47 AM [facility] Oxyhemoglobin, Arterial 97.9(H) 94.0 - 97.0 % 06/15/2024 1:47 AM [facility] Carboxyhemoglobin , Arterial 0.5 % 06/15/2024 1:47 AM [facility] Comment: Nonsmokers: 0.5-1.5% COHB ?? Smokers: Variable ??but usually less than 10% ?? Toxic: 20-30% COHB ?? Lethal: Greater than 60% COHB Methemoglobin, Arterial 0.3 <=1.5 % 06/15/2024 1:47 AM [facility] Sodium, Arterial 139 135 - 145 mmol/L 06/15/2024 1:47 AM [facility] Potassium, Arterial 4.2 3.5 - 5.0 mmol/L 06/15/2024 1:47 AM [facility] Chloride, Arterial 107 98 - 107 mmol/L 06/15/2024 1:47 AM [facility] Lactate, Arterial 1.8 0.5 - 2.2 mmol/L 06/15/2024 1:47 AM [facility] Fraction of Inspired Oxygen 40 % 06/15/2024 1:47 AM [facility] PF Ratio 328 Ratio 06/15/2024 1:47 AM [facility] Comment:PF ratio calculated using the non-temperature corrected pO2 result. IONIZED CALCIUM, ARTERIAL 1.17 1.15 - 1.33 mmol/L 06/15/2024 1:47 AM [facility] Glucose, Arterial 127 65 - 199 mg/dL 06/15/2024 1:47 AM [facility] Comment:Glucose Concentratio n >=200 mg/dL plus symptoms is consistent with Diabetes Mellitus. Blood ARTERIAL BLOOD / Unknown 06/15/2024 1:46 AM EST 06/15/2024 1:47 AM EST Bobby Loja MD POINT OF CARE TEST O RDERABLES [facility] [place] [address] * POC, GLUCOSE (06/15/2024 1:05 AM EST) Glucometer, POC 116 65 - 199 mg/dL 06/15/2024 1:05 AM EST [facility] Comment:Supplemental ranges: <140 mg/dL before meals <180 mg/dL all other times of the day. Blood CAPILLARY BLOOD / Unknown 06/15/2024 1:05 AM EST 06/15/2024 1:05 AM EST Bobby Loja MD POINT OF CARE TEST O RDERABLES Performing Organization Address [facility] [address] [facility] Co de Phone Number [facility] [place] [address] * POC, GLUCOSE (06/15/2024 12:16 AM EST) Glucometer, POC 135 65 - 199 mg/dL 06/15/2024 12:16 AM EST [facility] Comment:Supplemental ranges: <140 mg/dL before meals <180 mg/dL all other times of the day. Blood CAPILLARY BLOOD / Unknown 06/15/2024 12:16 AM EST 06/15/2024 12:16 AM EST Bobby Loja MD POINT OF CARE TEST O RDBECKIE Performing Organization Address [facility] [address]/ZIP Co de Phone Number [facility] [place] [address] * Potassium (06/14/2024 11:28 PM EST) Potassium 4.1 3.5 - 5.0 mMol/L 06/14/2024 11:54 PM EST [facility] Blood VENOUS BLOOD SPECIMEN / Unknown Venipuncture / Unknown 06/14/2024 11:28 PM EST 06/14/2024 11:34 PM EST Bobby Loja MD CHEMISTRY ORDERABLES [facility] [place] [address] * POC, GLUCOSE (06/14/2024 10:58 PM EST) Glucometer, POC 126 65 - 199 mg/dL 06/14/2024 10:59 PM EST [facility] Comment:Supplemental ranges: <140 mg/dL before meals <180 mg/dL all other times of the day. Blood CAPILLARY BLOOD / Unknown 06/14/2024 10:58 PM EST 06/14/2024 10:59 PM EST Bobby Loja MD POINT OF CARE TEST O NIKA Performing Organization Address [facility] [address]/[facility] de Phone Number [facility] [place] [address] * POC, GLUCOSE (06/14/2024 9:55 PM EST) Glucometer, POC 152 65 - 199 mg/dL 06/14/2024 9:56 PM EST [facility] Comment:Supplemental ranges: <140 mg/dL before meals <180 mg/dL all other times of the day. Blood CAPILLARY BLOOD / Unknown 06/14/2024 9:55 PM EST 06/14/2024 9:56 PM EST Bobby Loja MD POINT OF CARE TEST O NIKA Performing Organization Address City/[facility] [address]/[facility] Co de Phone Number [facility] [place] [address] * POC, GLUCOSE (06/14/2024 8:54 PM EST) Glucometer, POC 151 65 - 199 mg/dL 06/14/2024 8:54 PM EST [facility] Comment:Supplemental ranges: <140 mg/dL before meals <180 mg/dL all other times of the day. Blood CAPILLARY BLOOD / Unknown 06/14/2024 8:54 PM EST 06/14/2024 8:54 PM EST Bobby Loja MD POINT OF CARE TEST O RDBECKIE Performing Organization Address City/[facility] [address]/ZIP Co de Phone Number [facility] [place] [address] * POC, GLUCOSE (06/14/2024 7:51 PM EST) Glucometer, POC 169 65 - 199 mg/dL 06/14/2024 7:52 PM EST [facility] Comment:Supplemental ranges: <140 mg/dL before meals <180 mg/dL all other times of the day. Blood CAPILLARY BLOOD / Unknown 06/14/2024 7:51 PM EST 06/14/2024 7:52 PM EST Bobby Loja MD POINT OF CARE TEST O NIKA Performing Organization Address [facility] [address]/[facility] Co de Phone Number [facility] [place] [address] * POC, GLUCOSE (06/14/2024 6:49 PM EST) Glucometer, POC 194 65 - 199 mg/dL 06/14/2024 6:50 PM EST [facility] Comment:Supplemental ranges: <140 mg/dL before meals <180 mg/dL all other times of the day. Blood CAPILLARY BLOOD / Unknown 06/14/2024 6:49 PM EST 06/14/2024 6:50 PM EST Bobby Loja MD POINT OF CARE TEST O NIKA Performing Organization Address City/[facility] [address]/ZIP Co de Phone Number [facility] [place] [address] * (ABNORMAL) Hemoglobin (06/14/2024 6:19 PM EST) Hemoglobin 13.1(L) 13.7 - 16.5 g/dL 06/14/2024 7:08 PM EST [facility] Blood VENOUS BLOOD SPECIMEN / Unknown Venipuncture / Unknown 06/14/2024 6:19 PM EST 06/14/2024 6:28 PM EST Bobby Loja MD HEMATOLOGY ORDERABLE S Performing Organization Address [facility] [address]/ZIP Co de Phone Number [facility] [place] [address] * Potassium (06/14/2024 6:19 PM EST) Pathologist [facility] Potassium 3.9 3.5 - 5.0 mMol/L 06/14/2024 6:52 PM EST [facility] Blood VENOUS BLOOD SPECIMEN / Unknown Venipuncture / Unknown 06/14/2024 6:19 PM EST 06/14/2024 6:28 PM EST Bobby Loja MD CHEMISTRY ORDERABLES Performing Organization Address [facility] [address]/[facility] Co de Phone Number [facility] [place] [address] * (ABNORMAL) POC, GLUCOSE (06/14/2024 6:03 PM EST) [facility] Glucometer, POC 201(H) 65 - 199 mg/dL 06/14/2024 6:03 PM EST [facility] Comment:Supplemental ranges: <140 mg/dL before meals <180 mg/dL all other times of the day. Blood CAPILLARY BLOOD / Unknown 06/14/2024 6:03 PM EST 06/14/2024 6:03 PM EST Narrative Authorizing Provider Result Saranya Loja MD POINT OF CARE TEST O RDERABLES Performing Organization Address City/[facility] [address]/ZIP Co de Phone Number [facility] [place] [address] * (ABNORMAL) Blood Gas, Arterial POC (06/14/2024 4:51 PM EST) [facility] pH, Arterial 7.32(L) 7.35 - 7.45 06/14/2024 4:52 PM EST [facility] PCO2, Arterial 46(H) 35 - 45 mmHg 06/14/2024 4:52 PM EST [facility] PO2, Arterial 85 85 - 104 mmHg 06/14/2024 4:52 PM [facility] Bicarbonate, Arterial 23.1 20.0 - 26.0 mmol/L 06/14/2024 4:52 PM [facility] Base Excess, Arterial -3.1(L) -3.0 - 3.0 mmol/L 06/14/2024 4:52 PM [facility] Hemoglobin, Arterial 14.3 13.7 - 16.5 g/dL 06/14/2024 4:52 PM [facility] Oxyhemoglobin, Arterial 94.7 94.0 - 97.0 % 06/14/2024 4:52 PM [facility] Carboxyhemoglobin , Arterial 0.6 % 06/14/2024 4:52 PM [facility] Comment: Nonsmokers: 0.5-1.5% COHB ?? Smokers: Variable ??but usually less than 10% ?? Toxic: 20-30% COHB ?? Lethal: Greater than 60% COHB Methemoglobin, Arterial 0.0 <=1.5 % 06/14/2024 4:52 PM [facility] Sodium, Arterial 138 135 - 145 mmol/L 06/14/2024 4:52 PM [facility] Potassium, Arterial 4.1 3.5 - 5.0 mmol/L 06/14/2024 4:52 PM [facility] Chloride, Arterial 106 98 - 107 mmol/L 06/14/2024 4:52 PM [facility] Lactate, Arterial 1.3 0.5 - 2.2 mmol/L 06/14/2024 4:52 PM [facility] Fraction of Inspired Oxygen 40 % 06/14/2024 4:52 PM [facility] PF Ratio 213 Ratio 06/14/2024 4:52 PM [facility] Comment:PF ratio calculated using the non-temperature corrected pO2 result. IONIZED CALCIUM, ARTERIAL 1.16 1.15 - 1.33 mmol/L 06/14/2024 4:52 PM EST [facility] Glucose, Arterial 192 65 - 199 mg/dL 06/14/2024 4:52 PM EST [facility] Comment:Glucose Concentratio n >=200 mg/dL plus symptoms is consistent with Diabetes Mellitus. Blood ARTERIAL BLOOD / Unknown 06/14/2024 4:51 PM EST 06/14/2024 4:52 PM EST Bobby Loja MD POINT OF CARE TEST O NIKA Performing Organization Address [facility] [address] [facility] Co de Phone Number [facility] [place] [address] * POC, GLUCOSE (06/14/2024 4:00 PM EST) Glucometer, POC 184 65 - 199 mg/dL 06/14/2024 4:01 PM EST [facility] Comment:Supplemental ranges: <140 mg/dL before meals <180 mg/dL all other times of the day. Blood CAPILLARY BLOOD / Unknown 06/14/2024 4:00 PM EST 06/14/2024 4:01 PM EST Bobby Loja MD POINT OF CARE TEST O NIKA Performing Organization Address [facility] [address]/[facility] Co ga Phone Number [facility] [place] [address] * XR Chest One View (06/14/2024 3:05 PM EST) WORKSTATION ID [id number] RAD Anatomical Region Laterality Modality Chest N/A [...] who have questions please contact the health youth care worker that requested your imaging first. ? Electronically signed by: Stuart Aponte MD, [facility] ??([phone]), at 06/14/2024 4:07 PM Narrative 06/14/2024 4:07 [...] patients who have questions please contactthe health youth care worker that requested your imaging first. Electronically signed by: Stuart Aponte MD, [facility]([phone]), at 06/14/2024 4:07 PM Bobby Loja MD IMG DX ORDERABLES * (ABNORMAL) Blood Gas, Arterial POC (06/14/2024 2:52 PM EST) pH, Arterial 7.28(LLL) 7.35 - 7.45 06/14/2024 2:53 PM [facility] PCO2, Arterial 50(H) 35 - 45 mmHg 06/14/2024 2:53 PM [facility] PO2, Arterial 510(H) 85 - 104 mmHg 06/14/2024 2:53 PM [facility] Bicarbonate, Arterial 22.8 20.0 - 26.0 mmol/L 06/14/2024 2:53 PM [facility] Base Excess, Arterial -4.0(L) -3.0 - 3.0 mmol/L 06/14/2024 2:53 PM [facility] Hemoglobin, Arterial 13.8 13.7 - 16.5 g/dL 06/14/2024 2:53 PM [facility] Oxyhemoglobin, Arterial 99.3(H) 94.0 - 97.0 % 06/14/2024 2:53 PM [facility] Carboxyhemoglobin , Arterial 0.6 % 06/14/2024 2:53 PM [facility] Comment: Nonsmokers: 0.5-1.5% COHB ?? Smokers: Variable ??but usually less than 10% ?? Toxic: 20-30% COHB ?? Lethal: Greater than 60% COHB Methemoglobin, Arterial 0.1 <=1.5 % 06/14/2024 2:53 PM EST [facility] Sodium, Arterial 138 135 - 145 mmol/L 06/14/2024 2:53 PM [facility] Potassium, Arterial 4.2 3.5 - 5.0 mmol/L 06/14/2024 2:53 PM [facility] Chloride, Arterial 106 98 - 107 mmol/L 06/14/2024 2:53 PM [facility] Lactate, Arterial 1.1 0.5 - 2.2 mmol/L 06/14/2024 2:53 PM [facility] Fraction of Inspired Oxygen 100 % 06/14/2024 2:53 PM [facility] PF Ratio 510 Ratio 06/14/2024 2:53 PM [facility] Comment:PF ratio calculated using the non-temperature corrected pO2 result. IONIZED CALCIUM, ARTERIAL 1.15 1.15 - 1.33 mmol/L 06/14/2024 2:53 PM [facility] Glucose, Arterial 169 65 - 199 mg/dL 06/14/2024 2:53 PM [facility] Comment:Glucose Concentratio n >=200 mg/dL plus symptoms is consistent with Diabetes Mellitus. Blood ARTERIAL BLOOD / Unknown 06/14/2024 2:52 PM EST 06/14/2024 2:53 PM EST Bobby Loja MD POINT OF CARE TEST O RDERABLES [facility] [place] [address] * EKG 12 Lead (06/14/2024 2:46 PM EST) Ventricular rate 80 BPM MUSE SYSTEM Atrial Rate 80 BPM MUSE SYSTEM P-R Interval 120 ms MUSE SYSTEM QRS Duration 108 ms MUSE SYSTEM Q-T Interval 454 ms MUSE SYSTEM QTC Calculated (Bezet) 523 ms MUSE SYSTEM Calculated P [place] 70 degrees MUSE SYSTEM Calculated R [place] 56 degrees MUSE SYSTEM Calculated T [place] 50 degrees MUSE SYSTEM INTERPRETATION AV dual-paced rhythm Abnormal ECG When compared with ECG of 03-JUN-2024 01:45, Vent. rate has increased BY ??17 BPM Confirmed by MD Marisol, Shaheen ([id number]) on 06/15/2024 1:57:23 PM MUSE SYSTEM 06/14/2024 2:46 PM EST 06/15/2024 1:57 PM EST Bobby Loja MD ECG ORDERABLES MUSE SYSTEM * Prepare RBC (06/14/2024 2:27 PM EST) Status Information Returned [facility] Product Identification RBC [facility] Unit Number [id number] [facility] Product Code [id number] [facility] Unit Blood Type OPOS [facility] Specimen Expiration Date [facility] Volulme 350 [facility] Issue Date / Time [facility] Status Information Returned [facility] Product Identification RBC [facility] Unit Number [id number] [facility] Product Code Q0448I95 [facility] Unit Blood Type OPOS [facility] Specimen Expiration Date [facility] Volulme 350 [facility] Issue Date / Time [facility] Blood 06/14/2024 6:2 5 AM EST Haja Byrnes MD BLOOD BANK PRODUCT O RDERABLES [facility] [place] [place] [address] * (ABNORMAL) Cooximetry, POC (06/14/2024 1:52 PM EST) pO2, Coox 58 mmHg 06/14/2024 1:55 PM EST [facility] Hemoglobin, Coox 12.6(L) 13.7 - 16.5 g/dL 06/14/2024 1:55 PM EST [facility] Oxyhemoglobin, Coox 85.5 % 06/14/2024 1:55 PM [facility] Carboxyhemoglo bin, Coox 0.3 % 06/14/2024 1:55 PM [facility] Comment: Nonsmokers: 0.5-1.5% COHB ?? Smokers: Variable ??but usually less than 10% ?? Toxic: 20-30% COHB ?? Lethal: Greater than 60% COHB Methemoglobin, Coox 0.6 <=1.5 % 06/14/2024 1:55 PM [facility] Blood (Mixed Venous) 06/14/2024 1:52 PM EST 06/14/2024 1:55 PM EST Haja Byrnes MD POINT OF CARE TEST O RDERABLES Performing Organization Address City/State/[facility] Co de Phone Number [facility] [place] [address] * (ABNORMAL) Blood Gas, Arterial POC (06/14/2024 12:47 PM EST) pH, Arterial 7.33(L) 7.35 - 7.45 06/14/2024 12:48 PM [facility] PCO2, Arterial 46(H) 35 - 45 mmHg 06/14/2024 12:48 PM [facility] PO2, Arterial 358(H) 85 - 104 mmHg 06/14/2024 12:48 PM [facility] Bicarbonate, Arterial 23.8 20.0 - 26.0 mmol/L 06/14/2024 12:48 PM [facility] Base Excess, Arterial -2.1 -3.0 - 3.0 mmol/L 06/14/2024 12:48 PM [facility] Hemoglobin, Arterial 11.7(L) 13.7 - 16.5 g/dL 06/14/2024 12:48 PM [facility] Oxyhemoglobin, Arterial 98.7(H) 94.0 - 97.0 % 06/14/2024 12:48 PM EST [facility] Carboxyhemoglobin , Arterial 0.3 % 06/14/2024 12:48 PM [facility] Comment: Nonsmokers: 0.5-1.5% COHB ?? Smokers: Variable ??but usually less than 10% ?? Toxic: 20-30% COHB ?? Lethal: Greater than 60% COHB Methemoglobin, Arterial 0.5 <=1.5 % 06/14/2024 12:48 PM EST [facility] Sodium, Arterial 135 135 - 145 mmol/L 06/14/2024 12:48 PM [facility] Potassium, Arterial 5.0 3.5 - 5.0 mmol/L 06/14/2024 12:48 PM [facility] Chloride, Arterial 106 98 - 107 mmol/L 06/14/2024 12:48 PM [facility] Lactate, Arterial 1.4 0.5 - 2.2 mmol/L 06/14/2024 12:48 PM [facility] IONIZED CALCIUM, ARTERIAL 1.09(L) 1.15 - 1.33 mmol/L 06/14/2024 12:48 PM [facility] Glucose, Arterial 157 65 - 199 mg/dL 06/14/2024 12:48 PM EST [facility] Comment:Glucose Concentratio n >=200 mg/dL plus symptoms is consistent with Diabetes Mellitus. Blood ARTERIAL BLOOD / Unknown 06/14/2024 12:47 PM EST 06/14/2024 12:48 PM EST Haja Byrnes MD POINT OF CARE TEST O RDERABLES [facility] [place] [address] * (ABNORMAL) Cooximetry, POC (06/14/2024 12:42 PM EST) pO2, Coox 71 mmHg 06/14/2024 12:45 PM EST [facility] Hemoglobin, Coox 11.6(L) 13.7 - 16.5 g/dL 06/14/2024 12:45 PM EST [facility] Oxyhemoglobin, Coox 91.5 % 06/14/2024 12:45 PM EST [facility] Carboxyhemoglo bin, Coox 0.3 % 06/14/2024 12:45 PM EST [facility] Comment: Nonsmokers: 0.5-1.5% COHB ?? Smokers: Variable ??but usually less than 10% ?? Toxic: 20-30% COHB ?? Lethal: Greater than 60% COHB Methemoglobin, Coox 0.4 <=1.5 % 06/14/2024 12:45 PM EST [facility] Blood (Mixed Venous) 06/14/2024 12:42 PM EST 06/14/2024 12:45 PM EST Haja Byrnes MD POINT OF CARE TEST O RDERABLES [facility] [place] [address] * (ABNORMAL) Platelet count (06/14/2024 12:30 PM EST) Platelet 73(L) 145 - 357 x10(3)/mcL 06/14/2024 12:54 PM EST [facility] Blood ARTERIAL BLOOD / Unknown 06/14/2024 12:30 PM EST Comment:Pre-op diagnosis: CAD Bobby Loja MD HEMATOLOGY ORDERABLE S [facility] [place] [address] * (ABNORMAL) Hemoglobin and Hematocrit, blood (06/14/2024 12:30 PM EST) Hemoglobin 10.9(L) 13.7 - 16.5 g/dL 06/14/2024 12:54 PM EST [facility] Hematocrit 33.5(L) 40.5 - 48.5 % 06/14/2024 12:54 PM EST [facility] Comment:This result has been called to Danielle López by Satya Page on 06/14/2024 12:53:56, and has been read back. Blood ARTERIAL BLOOD / Unknown 06/14/2024 12:30 PM EST 06/14/2024 12:42 PM EST Comment:Pre-op diagnosis: CAD Bobby Loja MD HEMATOLOGY ORDERABLE S Performing Organization Address [facility] [address]/ZIP Co de Phone Number [facility] [place] [address] * APTT (06/14/2024 12:30 PM EST) Partial Thromboplastin Time 31 25 - 37 sec 06/14/2024 12:57 PM EST [facility] Comment: The PTT is NOT appropriate for heparin monitoring. Use the Anti-Xa level for heparin monitoring (HEP UFH) or LMWH monitoring (HEP LMW). A PTT less than 37 seconds generally indicates adequate hemostasis. Blood ARTERIAL BLOOD / Unknown 06/14/2024 12:30 PM EST 06/14/2024 12:42 PM EST Comment:Pre-op diagnosis: CAD Bobby Loja MD HEMATOLOGY ORDERABLE S Performing Organization Address City/[facility] [address]/ZIP Co de Phone Number [facility] [place] [address] * (ABNORMAL) Prothrombin Time (06/14/2024 12:30 PM EST) Prothrombin Time 16.8(H) 9.4 - 12.5 sec 06/14/2024 12:57 PM EST [facility] International Normalization Ratio 1.5 <=4.9 06/14/2024 12:57 PM EST [facility] Comment: An INR < 2.0 [...] MD HEMATOLOGY ORDERABLE S Performing Organization Address [facility] [address]/[facility] Co de Phone Number [facility] [place] [address] * Fibrinogen (06/14/2024 12:30 PM EST) Fibrinogen 211 200 - 393 mg/dL 06/14/2024 12:57 PM EST [facility] Comment: A fibrinogen level >100 mg/dL is adequate for hemostasis in most patients without underlying bleeding disorders. Blood ARTERIAL BLOOD / Unknown 06/14/2024 12:30 PM EST 06/14/2024 12:42 PM EST Comment:Pre-op diagnosis: CAD Bobby Loja MD HEMATOLOGY ORDERABLE S Performing Organization Address [facility] [address]/[facility] de Phone Number [facility] [place] [address] * (ABNORMAL) Blood Gas, Arterial POC (06/14/2024 12:15 PM EST) pH, Arterial 7.38 7.35 - 7.45 06/14/2024 12:16 PM EST [facility] PCO2, Arterial 40 35 - 45 mmHg 06/14/2024 12:16 PM EST [facility] Bicarbonate, Arterial 22.9 20.0 - 26.0 mmol/L 06/14/2024 12:16 PM EST [facility] Base Excess, Arterial -2.3 -3.0 - 3.0 mmol/L 06/14/2024 12:16 PM EST [facility] Hemoglobin, Arterial 11.4(L) 13.7 - 16.5 g/dL 06/14/2024 12:16 PM [facility] Oxyhemoglobin, Arterial 98.8(H) 94.0 - 97.0 % 06/14/2024 12:16 PM [facility] Carboxyhemoglobin , Arterial 0.3 % 06/14/2024 12:16 PM [facility] Comment: Nonsmokers: 0.5-1.5% COHB ?? Smokers: Variable ??but usually less than 10% ?? Toxic: 20-30% COHB ?? Lethal: Greater than 60% COHB Methemoglobin, Arterial 0.6 <=1.5 % 06/14/2024 12:16 PM [facility] Sodium, Arterial 134(L) 135 - 145 mmol/L 06/14/2024 12:16 PM [facility] Potassium, Arterial 5.4(H) 3.5 - 5.0 mmol/L 06/14/2024 12:16 PM [facility] Chloride, Arterial 105 98 - 107 mmol/L 06/14/2024 12:16 PM [facility] Lactate, Arterial 1.3 0.5 - 2.2 mmol/L 06/14/2024 12:16 PM [facility] IONIZED CALCIUM, ARTERIAL 1.08(L) 1.15 - 1.33 mmol/L 06/14/2024 12:16 PM [facility] Glucose, Arterial 161 65 - 199 mg/dL 06/14/2024 12:16 PM [facility] Comment:Glucose Concentratio n >=200 mg/dL plus symptoms is consistent with Diabetes Mellitus. Blood ARTERIAL BLOOD / Unknown 06/14/2024 12:15 PM EST 06/14/2024 12:16 PM EST Haja Byrnes MD POINT OF CARE TEST O RDERABLES [facility] [place] [address] * (ABNORMAL) Blood Gas, Arterial POC (06/14/2024 11:51 AM [facility]) pH, Arterial 7.40 7.35 - 7.45 06/14/2024 11:52 AM [facility] PCO2, Arterial 41 35 - 45 mmHg 06/14/2024 11:52 AM [facility] PO2, Arterial 332(H) 85 - 104 mmHg 06/14/2024 11:52 AM [facility] Bicarbonate, Arterial 24.7 20.0 - 26.0 mmol/L 06/14/2024 11:52 AM [facility] Base Excess, Arterial -0.1 -3.0 - 3.0 mmol/L 06/14/2024 11:52 AM [facility] Hemoglobin, Arterial 11.1(L) 13.7 - 16.5 g/dL 06/14/2024 11:52 AM [facility] Oxyhemoglobin, Arterial 98.7(H) 94.0 - 97.0 % 06/14/2024 11:52 AM [facility] Carboxyhemoglobin , Arterial 0.3 % 06/14/2024 11:52 AM [facility] Comment: Nonsmokers: 0.5-1.5% COHB ?? Smokers: Variable ??but usually less than 10% ?? Toxic: 20-30% COHB ?? Lethal: Greater than 60% COHB Methemoglobin, Arterial 0.4 <=1.5 % 06/14/2024 11:52 AM [facility] Sodium, Arterial 135 135 - 145 mmol/L 06/14/2024 11:52 AM [facility] Potassium, Arterial 5.7(H) 3.5 - 5.0 mmol/L 06/14/2024 11:52 AM [facility] Chloride, Arterial 105 98 - 107 mmol/L 06/14/2024 11:52 AM [facility] Lactate, Arterial 1.2 0.5 - 2.2 mmol/L 06/14/2024 11:52 AM [facility] IONIZED CALCIUM, ARTERIAL 1.10(L) 1.15 - 1.33 mmol/L 06/14/2024 11:52 AM [facility] Glucose, Arterial 148 65 - 199 mg/dL 06/14/2024 11:52 AM [facility] Comment:Glucose Concentratio n >=200 mg/dL plus symptoms is consistent with Diabetes Mellitus. Blood ARTERIAL BLOOD / Unknown 06/14/2024 11:51 AM EST 06/14/2024 11:52 AM EST Haja Byrnes MD POINT OF CARE TEST O RDERABLES [facility] [place] [address] * (ABNORMAL) Blood Gas, Arterial POC (06/14/2024 11:27 AM EST) pH, Arterial 7.38 7.35 - 7.45 06/14/2024 11:28 AM [facility] PCO2, Arterial 37 35 - 45 mmHg 06/14/2024 11:28 AM [facility] PO2, Arterial 348(H) 85 - 104 mmHg 06/14/2024 11:28 AM [facility] Bicarbonate, Arterial 21.1 20.0 - 26.0 mmol/L 06/14/2024 11:28 AM [facility] Base Excess, Arterial -4.1(L) -3.0 - 3.0 mmol/L 06/14/2024 11:28 AM [facility] Hemoglobin, Arterial 11.0(L) 13.7 - 16.5 g/dL 06/14/2024 11:28 AM [facility] Oxyhemoglobin, Arterial 98.7(H) 94.0 - 97.0 % 06/14/2024 11:28 AM [facility] Carboxyhemoglobin , Arterial 0.3 % 06/14/2024 11:28 AM [facility] Comment: Nonsmokers: 0.5-1.5% COHB ?? Smokers: Variable ??but usually less than 10% ?? Toxic: 20-30% COHB ?? Lethal: Greater than 60% COHB Methemoglobin, Arterial 0.4 <=1.5 % 06/14/2024 11:28 AM [facility] Sodium, Arterial 132(L) 135 - 145 mmol/L 06/14/2024 11:28 AM [facility] Potassium, Arterial 5.8(H) 3.5 - 5.0 mmol/L 06/14/2024 11:28 AM [facility] Chloride, Arterial 105 98 - 107 mmol/L 06/14/2024 11:28 AM [facility] Lactate, Arterial 1.1 0.5 - 2.2 mmol/L 06/14/2024 11:28 AM [facility] IONIZED CALCIUM, ARTERIAL 1.03(L) 1.15 - 1.33 mmol/L 06/14/2024 11:28 AM [facility] Glucose, Arterial 147 65 - 199 mg/dL 06/14/2024 11:28 AM [facility] Comment:Glucose Concentratio n >=200 mg/dL plus symptoms is consistent with Diabetes Mellitus. Blood ARTERIAL BLOOD / Unknown 06/14/2024 11:27 AM EST 06/14/2024 11:28 AM EST Haja Byrnes MD POINT OF CARE TEST O RDERABLES Performing Organization Address City/State/[facility] Co de Phone Number [facility] [place] [address] * (ABNORMAL) Scan, Peripheral Blood (06/14/2024 11:23 AM EST) RBC Morphology Abnormal 06/14/2024 11:59 AM [facility] Platelet Estimate Decreased(A) Normal 06/14/2024 11:59 AM [facility] Aretha cells 1-5 /HPF 06/14/2024 11:59 AM [facility] Blood ARTERIAL BLOOD / Unknown 06/14/2024 11:23 AM EST 06/14/2024 11:27 AM EST Bobby Loja MD HEMATOLOGY ORDERABLE S [facility] [place] [address] * (ABNORMAL) Platelet count (06/14/2024 11:23 AM EST) Platelet 86(L) 145 - 357 x10(3)/mcL 06/14/2024 11:59 AM EST [facility] Blood ARTERIAL BLOOD / Unknown 06/14/2024 11:23 AM EST Comment:Pre-op diagnosis: CAD Bobby Loja MD HEMATOLOGY ORDERABLE S Performing Organization Address [facility] [address]/[facility] Co de Phone Number [facility] [place] [address] * (ABNORMAL) Hemoglobin and Hematocrit, blood (06/14/2024 11:23 AM EST) Hemoglobin 9.8(L) 13.7 - 16.5 g/dL 06/14/2024 11:59 AM EST [facility] Comment:This result has been called to Danielle López by Satya Page on 06/14/2024 11:58:33. Hematocrit 30.5(L) 40.5 - 48.5 % 06/14/2024 11:59 AM EST [facility] Comment:This result has been called to Danielle López by Satya Page on 06/14/2024 11:58:40, and has been read back. Blood ARTERIAL BLOOD / Unknown 06/14/2024 11:23 AM EST 06/14/2024 11:27 AM EST Comment:Pre-op diagnosis: CAD Bobby Loja MD HEMATOLOGY ORDERABLE S [facility] [place] [address] * (ABNORMAL) Blood Gas, Arterial POC (06/14/2024 10:58 AM [facility]) pH, Arterial 7.38 7.35 - 7.45 06/14/2024 10:59 AM [facility] PCO2, Arterial 43 35 - 45 mmHg 06/14/2024 10:59 AM [facility] PO2, Arterial 401(H) 85 - 104 mmHg 06/14/2024 10:59 AM [facility] Bicarbonate, Arterial 24.8 20.0 - 26.0 mmol/L 06/14/2024 10:59 AM [facility] Base Excess, Arterial -0.5 -3.0 - 3.0 mmol/L 06/14/2024 10:59 AM [facility] Hemoglobin, Arterial 11.9(L) 13.7 - 16.5 g/dL 06/14/2024 10:59 AM [facility] Oxyhemoglobin, Arterial 99.0(H) 94.0 - 97.0 % 06/14/2024 10:59 AM [facility] Carboxyhemoglobin , Arterial 0.3 % 06/14/2024 10:59 AM [facility] Comment: Nonsmokers: 0.5-1.5% COHB ?? Smokers: Variable ??but usually less than 10% ?? Toxic: 20-30% COHB ?? Lethal: Greater than 60% COHB Methemoglobin, Arterial 0.3 <=1.5 % 06/14/2024 10:59 AM [facility] Sodium, Arterial 128(L) 135 - 145 mmol/L 06/14/2024 10:59 AM [facility] Potassium, Arterial 6.6(HHH) 3.5 - 5.0 mmol/L 06/14/2024 10:59 AM [facility] Chloride, Arterial 99 98 - 107 mmol/L 06/14/2024 10:59 AM [facility] Lactate, Arterial 1.3 0.5 - 2.2 mmol/L 06/14/2024 10:59 AM [facility] IONIZED CALCIUM, ARTERIAL 1.00(L) 1.15 - 1.33 mmol/L 06/14/2024 10:59 AM [facility] Glucose, Arterial 155 65 - 199 mg/dL 06/14/2024 10:59 AM [facility] Comment:Glucose Concentratio n >=200 mg/dL plus symptoms is consistent with Diabetes Mellitus. Blood ARTERIAL BLOOD / Unknown 06/14/2024 10:58 AM EST 06/14/2024 10:59 AM EST Haja Byrnes MD POINT OF CARE TEST O RDERABLES [facility] [place] [address] * (ABNORMAL) Blood Gas, Arterial POC (06/14/2024 10:26 AM EST) pH, Arterial 7.29(LLL) 7.35 - 7.45 06/14/2024 10:27 AM [facility] PCO2, Arterial 43 35 - 45 mmHg 06/14/2024 10:27 AM [facility] PO2, Arterial 369(H) 85 - 104 mmHg 06/14/2024 10:27 AM [facility] Bicarbonate, Arterial 19.9(L) 20.0 - 26.0 mmol/L 06/14/2024 10:27 AM [facility] Base Excess, Arterial -6.7(L) -3.0 - 3.0 mmol/L 06/14/2024 10:27 AM [facility] Hemoglobin, Arterial 12.6(L) 13.7 - 16.5 g/dL 06/14/2024 10:27 AM [facility] Oxyhemoglobin, Arterial 99.1(H) 94.0 - 97.0 % 06/14/2024 10:27 AM [facility] Carboxyhemoglobin , Arterial 0.1 % 06/14/2024 10:27 AM [facility] Comment: Nonsmokers: 0.5-1.5% COHB ?? Smokers: Variable ??but usually less than 10% ?? Toxic: 20-30% COHB ?? Lethal: Greater than 60% COHB Methemoglobin, Arterial 0.4 <=1.5 % 06/14/2024 10:27 AM [facility] Sodium, Arterial 129(L) 135 - 145 mmol/L 06/14/2024 10:27 AM [facility] Potassium, Arterial 5.0 3.5 - 5.0 mmol/L 06/14/2024 10:27 AM [facility] Chloride, Arterial 99 98 - 107 mmol/L 06/14/2024 10:27 AM [facility] Lactate, Arterial 0.9 0.5 - 2.2 mmol/L 06/14/2024 10:27 AM [facility] IONIZED CALCIUM, ARTERIAL 1.05(L) 1.15 - 1.33 mmol/L 06/14/2024 10:27 AM [facility] Glucose, Arterial 149 65 - 199 mg/dL 06/14/2024 10:27 AM [facility] Comment:Glucose Concentratio n >=200 mg/dL plus symptoms is consistent with Diabetes Mellitus. Blood ARTERIAL BLOOD / Unknown 06/14/2024 10:26 AM EST 06/14/2024 10:27 AM EST Haja Byrnes MD POINT OF CARE TEST O RDERABLES [facility] [place] [address] * (ABNORMAL) Blood Gas, Arterial POC (06/14/2024 10:25 AM EST) pH, Arterial 7.26(LLL) 7.35 - 7.45 06/14/2024 10:26 AM [facility] PCO2, Arterial 48(H) 35 - 45 mmHg 06/14/2024 10:26 AM [facility] Bicarbonate, Arterial 21.2 20.0 - 26.0 mmol/L 06/14/2024 10:26 AM [facility] Base Excess, Arterial -5.8(L) -3.0 - 3.0 mmol/L 06/14/2024 10:26 AM [facility] Hemoglobin, Arterial 12.5(L) 13.7 - 16.5 g/dL 06/14/2024 10:26 AM [facility] Oxyhemoglobin, Arterial 82.3(L) 94.0 - 97.0 % 06/14/2024 10:26 AM [facility] Carboxyhemoglobin , Arterial 0.5 % 06/14/2024 10:26 AM [facility] Comment: Nonsmokers: 0.5-1.5% COHB ?? Smokers: Variable ??but usually less than 10% ?? Toxic: 20-30% COHB ?? Lethal: Greater than 60% COHB Methemoglobin, Arterial 0.5 <=1.5 % 06/14/2024 10:26 AM [facility] Sodium, Arterial 131(L) 135 - 145 mmol/L 06/14/2024 10:26 AM [facility] Potassium, Arterial 4.6 3.5 - 5.0 mmol/L 06/14/2024 10:26 AM [facility] Chloride, Arterial 103 98 - 107 mmol/L 06/14/2024 10:26 AM [facility] Lactate, Arterial 0.8 0.5 - 2.2 mmol/L 06/14/2024 10:26 AM [facility] IONIZED CALCIUM, ARTERIAL 0.91(LLL) 1.15 - 1.33 mmol/L 06/14/2024 10:26 AM [facility] Glucose, Arterial 148 65 - 199 mg/dL 06/14/2024 10:26 AM [facility] Comment:Glucose Concentratio n >=200 mg/dL plus symptoms is consistent with Diabetes Mellitus. Blood ARTERIAL BLOOD / Unknown 06/14/2024 10:25 AM EST 06/14/2024 10:26 AM EST Haja Byrnes MD POINT OF CARE TEST O RDERABLES [facility] [place] [address] * Surgical Pathology (06/14/2024 9:53 AM EST) Case Report Surgical Pathology Report ? Case: [id number] ? Authorizing Provider: ??Bobby Loja MD ? Collected: ? 06/14/2024 0953 ? Ordering Location: ? Main Operating Room [facility] ?? Received: ?06/14/2024 1413 ? [facility] ? [facility] ? Pathologist: ? Sandra Salas MD ? Specimens: ?? A) - Soft Tissue Mass, mediastinal mass ? B) - Heart, Atrial Appendage, Left ? 06/18/2024 10:18 AM [facility] Final Diagnosis A. Soft Tissue Mass, Mediastinal Mass, Excision: - Atrophic thymic tissue B. Heart, Atrial Appendage, Left, Excision: - Mild myocyte hypertrophy 06/18/2024 10:18 AM [facility] Clinical Information A. Soft Tissue Mass, mediastinal mass Soft tissue mass Mediastinal mass B. Heart, Atrial Appendage, Left, *Other - as specified in Clinical Information MARIALUISA 06/18/2024 10:18 AM [facility] Gross Description A. Soft Tissue Mass, mediastinal mass. A - Labeled/Fixative : Mediastinal mass, fresh. Quantity/Size: Single, 7.2 x 5.3 x 1.2 cm. Tissue Description: Unoriented, intact portion of soft, rodriguez-yellow, lobulated tissue. The cut surface is homogenously pale-rodriguez, yellow and lobulated. No lesions or nodules are identified. Inking: External surface inked black Sections/Process ing: Flight Operations Manager sections in 4 cassettes labeled A1-A4. cmk B. Heart, Atrial Appendage, Left, . B - Labeled/Fixative : Heart, atrial appendage, left, fresh. Quantity/Size: Single, 3.3 x 1.5 x 0.8 cm. Tissue Description: Portion of heart tissue consisting of rodriguez-white, semitranslucent, smooth endocardium with rodriguez-brown muscular myocardium and thin translucent epicardium with adherent adipose tissue. No areas of discoloration identified. Sections/Process ing: Flight Operations Manager sections in 1 cassette labeled B1. cmk 06/18/2024 10:18 AM [facility] Result Note Routine 06/18/2024 10:18 AM [facility] Tissue SOFT TISSUE MASS / Unknown 06/14/2024 9:53 AM EST 06/14/2024 2:13 PM EST Comment:Mediastinal mass Tissue specimen (specimen) LEFT ATRIAL APPENDAGE ABSENT / Unknown 06/14/2024 10:54 AM EST 06/14/2024 2:13 PM EST Comment:MARIALUISA Bobby Loja MD PATHOLOGY/CYTOLOGY O RDERABLES [facility] [place] [address] * Cooximetry, POC (06/14/2024 9:00 AM EST) pO2, Coox 57 mmHg 06/14/2024 9:04 AM [facility] PO2 Corrected, COOX 50 mmHg 06/14/2024 9:04 AM [facility] Hemoglobin, Coox 14.3 13.7 - 16.5 g/dL 06/14/2024 9:04 AM [facility] Oxyhemoglobin, Coox 86.2 % 06/14/2024 9:04 AM [facility] Carboxyhemoglobi n, Coox 0.3 % 06/14/2024 9:04 AM [facility] Comment: Nonsmokers: 0.5-1.5% COHB ?? Smokers: Variable ??but usually less than 10% ?? Toxic: 20-30% COHB ?? Lethal: Greater than 60% COHB Methemoglobin, Coox 0.3 <=1.5 % 06/14/2024 9:04 AM [facility] Temperature Coox 35.2 C 06/14/20 24 9:04 AM [facility] Blood (Mixed Venous) 06/14/2024 9:00 AM EST 06/14/2024 9:04 AM EST Haja Byrnes MD POINT OF CARE TEST O RDERABLES [facility] [place] [address] * (ABNORMAL) Blood Gas, Arterial POC (06/14/2024 8:39 AM EST) pH, Arterial 7.37 7.35 - 7.45 06/14/2024 8:40 AM [facility] PCO2, Arterial 42 35 - 45 mmHg 06/14/2024 8:40 AM [facility] PO2, Arterial 341(H) 85 - 104 mmHg 06/14/2024 8:40 AM [facility] Bicarbonate, Arterial 23.7 20.0 - 26.0 mmol/L 06/14/2024 8:40 AM [facility] Base Excess, Arterial -1.6 -3.0 - 3.0 mmol/L 06/14/2024 8:40 AM [facility] Hemoglobin, Arterial 15.2 13.7 - 16.5 g/dL 06/14/2024 8:40 AM [facility] Oxyhemoglobin, Arterial 99.2(H) 94.0 - 97.0 % 06/14/2024 8:40 AM [facility] Carboxyhemoglobin , Arterial 0.1 % 06/14/2024 8:40 AM [facility] Comment: Nonsmokers: 0.5-1.5% COHB ?? Smokers: Variable ??but usually less than 10% ?? Toxic: 20-30% COHB ?? Lethal: Greater than 60% COHB Methemoglobin, Arterial 0.3 <=1.5 % 06/14/2024 8:40 AM [facility] Sodium, Arterial 136 135 - 145 mmol/L 06/14/2024 8:40 AM [facility] Potassium, Arterial 4.2 3.5 - 5.0 mmol/L 06/14/2024 8:40 AM EST [facility] Chloride, Arterial 102 98 - 107 mmol/L 06/14/2024 8:40 AM EST [facility] Lactate, Arterial 0.9 0.5 - 2.2 mmol/L 06/14/2024 8:40 AM EST [facility] IONIZED CALCIUM, ARTERIAL 1.17 1.15 - 1.33 mmol/L 06/14/2024 8:40 AM EST [facility] Glucose, Arterial 121 65 - 199 mg/dL 06/14/2024 8:40 AM EST [facility] Comment:Glucose Concentratio n >=200 mg/dL plus symptoms is consistent with Diabetes Mellitus. Blood ARTERIAL BLOOD / Unknown 06/14/2024 8:39 AM EST 06/14/2024 8:40 AM EST Haja Byrnes MD POINT OF CARE TEST O RDERABLES Performing Organization Address City/State/[facility] Co de Phone Number [facility] [place] [address] * Transesophageal Echo/OR (06/14/2024 7:20 AM EST) Anatomical Region Laterality Modality Cardiac Other 06/14/2024 7:20 AM EST Narrative 06/14/2024 4:36 PM EST Version: 2 Study ID: [id number] [address] [place] [address] ?OR Transesophageal Echo Report Name: GEORGE MEHTA ? Study Date: 06/14/2024, 7: 20 AM [...] of this mass after consultation with other production laborer experts and the decision was made by [...] MD - 06/14/2024 Version: 2 Study ID: [id number] [address] [place] [id number] ORTransesophageal Echo Report Name: GEORGE MEHTA Study [...] of this mass after consultation with other production laborer experts and thedecision was made by surgeon [...] - 199 mg/dL 06/14/2024 7:12 AM EST [facility] Comment:Supplemental ranges: <140 mg/dL before meals <180 mg/dL all other times of the day. Blood CAPILLARY BLOOD / Unknown 06/14/2024 7:11 AM EST 06/14/2024 7:12 AM EST Haja Byrnes MD POINT OF CARE TEST O RDERAPIETER Performing Organization Address City/[facility] [address]/ZIP Co de Phone Number [facility] [place] [address] * POC, GLUCOSE (06/14/2024 4:30 AM EST) Glucometer, POC 85 65 - 199 mg/dL 06/14/2024 4:30 AM EST [facility] Comment:Supplemental ranges: <140 mg/dL before meals <180 mg/dL all other times of the day. Blood CAPILLARY BLOOD / Unknown 06/14/2024 4:30 AM EST 06/14/2024 4:30 AM EST Haja Byrnes MD POINT OF CARE TEST O RDBECKIE Performing Organization Address City/[facility] [address]/ZIP Co de Phone Number [facility] [place] [address] * (ABNORMAL) Heparin (unfractionated) Level (06/14/2024 12:12 AM EST) UF Heparin 1.02(HH[facility]) IU/mL 06/14/2024 12:46 AM EST [facility] Comment: Heparin (anti-Xa) levels should [...] EST Shahnaz Scanlon MD HEMATOLOGY ORDERABLE S [facility] [place] [address] * (ABNORMAL) CBC (with Diff) (06/14/2024 12:12 AM EST) White Blood Cell 10.51(H) 4.00 - 9.50 x10(3)/mc L 06/14/2024 12:38 AM EST [facility] Red Blood Cell 4.99 4.58 - 5.54 x10(6)/mc L 06/14/2024 12:38 AM EST [facility] Hemoglobin 14.9 13.7 - 16.5 g/dL 06/14/2024 12:38 AM EST [facility] Hematocrit 45.9 40.5 - 48.5 % 06/14/2024 12:38 AM [facility] Mean Cell Volume 92.0 82.9 - 93.1 fL 06/14/2024 12:38 AM [facility] Mean Cell Hemoglobin 29.9 27.5 - 32.1 pg 06/14/2024 12:38 AM [facility] Mean Cell Hemoglobin Concentration 32.5 32.0 - 35.7 g/dL 06/14/2024 12:38 AM [facility] Platelet 162 145 - 357 x10(3)/mc L 06/14/2024 12:38 AM [facility] Mean Platelet Volume 10.1 7.6 - 12.9 fL 06/14/2024 12:38 AM [facility] RDW Standard Deviation 46.9(H) 36.0 - 45.0 fL 06/14/2024 12:38 AM [facility] RDW coefficient of variation 13.8 11.4 - 13.8 % 06/14/2024 12:38 AM [facility] NRBC% auto 0.0 % 06/14/2024 12:38 AM [facility] NRBC Absolute <0.01 <0.01 x10(3)/mc L 06/14/2024 12:38 AM [facility] Neutrophil % 56.7 % 06/14/2024 12:38 AM [facility] Neutrophil Absolute (ANC) - Automated 5.96 1.70 - 6.10 x10(3)/mc L 06/14/2024 12:38 AM [facility] Lymph % 26.8 % 06/14/2024 12:38 AM [facility] Lymph Absolute 2.82 0.90 - 3.20 x10(3)/mc L 06/14/2024 12:38 AM [facility] Monocyte % 11.2 % 06/14/2024 12:38 AM [facility] Monocyte Absolute 1.18(H) 0.30 - 0.90 x10(3)/mc L 06/14/2024 12:38 AM EST [facility] Eos % 3.9 % 06/14/2024 12:38 AM [facility] Eos Absolute 0.41(H) 0.00 - 0.40 x10(3)/mc L 06/14/2024 12:38 AM EST [facility] Basophil % 0.8 % 06/14/2024 12:38 AM [facility] Baso Absolute 0.08 0.00 - 0.10 x10(3)/mc L 06/14/2024 12:38 AM [facility] Immature Gran % 0.6 % 12:38 AM [facility] Immature Gran Absolute 0.06(H) 0.00 - 0.04 x10(3)/mc L 06/14/2024 12:38 AM [facility] Blood VENOUS BLOOD SPECIMEN / Unknown Venipuncture / Unknown 06/14/2024 12:12 AM EST 06/14/2024 12:29 AM EST Shahnaz Scanlon MD HEMATOLOGY ORDERABLE S [facility] [place] [address] * Magnesium (06/14/2024 12:12 AM EST) Magnesium 0.74 0.69 - 1.07 mMol/L 06/14/2024 12:57 AM EST [facility] Blood VENOUS BLOOD SPECIMEN / Unknown Venipuncture / Unknown 06/14/2024 12:12 AM EST 06/14/2024 12:29 AM EST Shahnaz Scanlon MD CHEMISTRY ORDERABLES [facility] [place] [address] * (ABNORMAL) Basic Metabolic Panel (06/14/2024 12:12 AM EST) Glucose 97 65 - 199 mg/dL 06/14/2024 12:57 AM [facility] Comment:Glucose Concentratio n >=200 mg/dL plus symptoms is consistent with Diabetes Mellitus. Blood Urea Nitrogen 25(H) 10 - 20 mg/dL 06/14/2024 12:57 AM [facility] Creatinine 1.14 0.80 - 1.50 mg/dL 06/14/2024 12:57 AM [facility] Sodium 135 135 - 145 mMol/L 06/14/2024 12:57 AM [facility] Potassium 4.1 3.5 - 5.0 mMol/L 06/14/2024 12:57 AM [facility] Chloride 100 98 - 107 mMol/L 06/14/2024 12:57 AM [facility] Carbon Dioxide 25 22 - 31 mMol/L 06/14/2024 12:57 AM [facility] Anion Gap 10 5 - 15 mMol/L 06/14/2024 12:57 AM [facility] Calcium 9.5 8.5 - 10.5 mg/dL 06/14/2024 12:57 AM [facility] Est Glomerular Filtration Rate - Male 70 mL/min/1. 73 m?? 06/14/2024 12:57 AM [facility] Comment: This patient's estimated GFR was [...] Scanlon MD CHEMISTRY ORDERABLES Performing Organization Address [facility] [address]/ZIP Co de Phone Number [facility] [place] [address] * Scan Doc: Implantable Devices (06/14/2024 12:00 AM EST) Narrative 06/14/2024 12:00 AM EST Ordered by an unspecified provider. Scanning Provider MEDIA MGR SCAN EXT O RDR/RSLT * POC, GLUCOSE (06/13/2024 11:12 PM EST) Glucometer, POC 104 65 - 199 mg/dL 06/13/2024 11:13 PM EST [facility] Comment:Supplemental ranges: <140 mg/dL before meals <180 mg/dL all other times of the day. Blood CAPILLARY BLOOD / Unknown 06/13/2024 11:12 PM EST 06/13/2024 11:13 PM EST Haja Byrnes MD POINT OF CARE TEST O NIKA Performing Organization Address [facility] [address]/ZIP Co de Phone Number [facility] [place] [address] * (ABNORMAL) POC, GLUCOSE (06/13/2024 8:03 PM EST) Glucometer, POC 206(H) 65 - 199 mg/dL 06/13/2024 8:03 PM EST [facility] Comment:Supplemental ranges: <140 mg/dL before meals <180 mg/dL all other times of the day. Blood CAPILLARY BLOOD / Unknown 06/13/2024 8:03 PM EST 06/13/2024 8:03 PM EST Haja Byrnes MD POINT OF CARE TEST O NIKA Performing Organization Address City/[facility] [address]/ZIP Co de Phone Number [facility] [place] [address] * Heparin (unfractionated) Level (06/13/2024 4:11 PM EST) Pathologist [facility] UF Heparin 0.76 IU/mL 06/13/2024 4:24 PM EST [facility] Comment: Heparin (anti-Xa) levels should [...] EST Shahnaz Scanlon MD HEMATOLOGY ORDERABLE S [facility] [place] [address] * ABORH RECHECK (06/13/2024 4:11 PM EST) Pathologist [facility] ABORH Recheck O POSITIVE 06/13/2024 4:50 PM EST [facility] Blood VENOUS BLOOD SPECIMEN / Unknown Venipuncture / Unknown 06/13/2024 4:11 PM EST 06/13/2024 4:19 PM EST Haja Byrnes MD BLOOD BANK LAB ORDER [place]SE[place] Performing Organization Address City/[facility] [address]/ZIP Co de Phone Number [facility] [place] [place] [address] * (ABNORMAL) POC, GLUCOSE (06/13/2024 4:09 PM EST) Glucometer, POC 216(H) 65 - 199 mg/dL 06/13/2024 4:10 PM EST [facility] Comment:Supplemental ranges: <140 mg/dL before meals <180 mg/dL all other times of the day. Blood CAPILLARY BLOOD / Unknown 06/13/2024 4:09 PM EST 06/13/2024 4:10 PM EST Haja Byrnes MD POINT OF CARE TEST O RDERABLES [facility] [place] [address] * Type and screen ([facility] (06/13/2024 11:53 AM EST) [facility] ABORH Type O POSITIVE 06/13/2024 1:16 PM EST [facility] PATIENT HISTORY Not Found 06/13/2024 1:16 PM EST [facility] Expires at [id number] on: 06/16/2024 06/13/2024 1:16 PM EST [facility] ANTIBODY SCREEN AUTOMATED Negative 06/13/2024 1:16 PM EST [facility] T&S only valid at [facility] 06/13/2024 1:16 PM EST [facility] Blood VENOUS BLOOD SPECIMEN / Unknown Venipuncture / Unknown 06/13/2024 11:53 AM EST 06/13/2024 11:56 AM EST Narrative [facility] - 06/13/2024 1:16 PM EST This Type and Screen result is only valid at the [facility] Haja Byrnes MD BLOOD BANK LAB ORDER [facility] [place] [address] * POC, GLUCOSE (06/13/2024 11:50 AM EST) Glucometer, POC 178 65 - 199 mg/dL 06/13/2024 11:51 AM EST [facility] Comment:Supplemental ranges: <140 mg/dL before meals <180 mg/dL all other times of the day. Blood CAPILLARY BLOOD / Unknown 06/13/2024 11:50 AM EST 06/13/2024 11:51 AM EST Haja Byrnes MD POINT OF CARE TEST O RDERABLES [facility] [place] [address] * XR Chest One View (06/13/2024 10:35 AM EST) WORKSTATION ID [id number] RAD Anatomical Region Laterality Modality Chest N/A [...] who have questions please contact the health youth care worker that requested your imaging first. ? Narrative [...] patients who have questions please contactthe health youth care worker that requested your imaging first. Electronically signed by: Jyothi Simon MD, [facility]([phone]), at 06/13/2024 10:43 AM Haja Byrnes MD IMG DX ORDERABLES * CARDIAC CATHETERIZATION (06/13/2024 9:02 AM EST) Anatomical Region Laterality Modality Other Narrative 06/15/2024 9:07 AM EST ?[facility] ? Cardiac Catheterization/Intervention Report ? Patient Name: Tyson, George L. ? Procedure Date: 06/13/2024 ? A #: [id number] ? Primary Physician: Nuha Shen I ? Case #: [id number] ? File Name: [id number] ? Catheterization Order Number: [id number] ? [facility] ? Final Report [place], [place] ? Patient Name: ? George L. Tyson ? ID#: ?[id number] ? : ?1955 ? Procedure Date: ? June 13, 2024 ?Case #: ? [id number] ? Room: ? 6 ? Case Physician: ? Nuha Shen M.D. ? Start: ?09:20 ?Fellow: ? Alice Tellez. ? Admission: ??06/02/2024 ? Referring Physician: ??Junaid Randall ? Procedures: ?* Intra-Aortic Balloon Pump (IABP) [...] ?was designated as ASA Class IV. The [facility] clinical frailty scale is 5: ?Mildly Frail. [...] procedure was Urgent. 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 ? Nuha Shen, M.D. ? Electronically Signed by: Nuha Shen, M.D. ? Report Finalized: 06/15/2024 ??08:59 ? Procedure Note Nuha Shen MD - 06/15/2024 [facility] Cardiac Catheterization/Intervention Report Patient Name: George Mehta Procedure Date: 06/13/2024 A #: [id number] Primary Physician: Nuha Shen I Case #: [id number] File Name: [id number] Catheterization Order Number: [id number] [facility] FinalReport [place], [place] Patient Name: George Mehta ID#:[id number] :1955 Procedure Date: June 13, 2024 Case [...] was designated as ASA Class IV. The [facility] clinical frailty scale is5: Mildly Frail. Diagnostic [...] diagnostic procedure was Urgent. The indicationfor the tin can laborer visit is ACS greater than 24 [...] site angiography,vascular ultrasound and IABP insertion in tin can laborer. Nuha Shen M.D. Electronically Signed by: Nuha Shen M.D. Report Finalized: 06/15/2024 08:59 Nuha Rojo MD CARDIAC CATH ORDERA BLES * Potassium (06/13/2024 7:48 AM EST) Potassium 4.5 3.5 - 5.0 mMol/L 06/13/2024 8:28 AM EST [facility] Blood VENOUS BLOOD SPECIMEN / Unknown Venipuncture / Unknown 06/13/2024 7:48 AM EST 06/13/2024 7:55 AM EST Shahnaz Scanlon MD CHEMISTRY ORDERABLES Performing Organization Address City/State/[facility] Co de Phone Number [facility] [place] [address] * POC, GLUCOSE (06/13/2024 7:41 AM EST) Glucometer, POC 126 65 - 199 mg/dL 06/13/2024 7:41 AM EST [facility] Comment:Supplemental ranges: <140 mg/dL before meals <180 mg/dL all other times of the day. Blood CAPILLARY BLOOD / Unknown 06/13/2024 7:41 AM EST 06/13/2024 7:41 AM EST Ethel Carrillo MD POINT OF CARE TEST O NIKA Performing Organization Address [facility] Co de Phone Number [facility] [place] [address] * POC, GLUCOSE (06/13/2024 3:25 AM EST) Glucometer, POC 99 65 - 199 mg/dL 06/13/2024 3:25 AM EST [facility] Comment:Supplemental ranges: <140 mg/dL before meals <180 mg/dL all other times of the day. Blood CAPILLARY BLOOD / Unknown 06/13/2024 3:25 AM EST 06/13/2024 3:25 AM EST Ethel Carrillo MD POINT OF CARE TEST O NIKA Performing Organization Address [facility] [address] [facility] de Phone Number [facility] [place] [address] * Heparin (unfractionated) Level (06/13/2024 2:26 AM EST) UF Heparin 0.60 IU/mL 06/13/2024 3:32 AM EST [facility] Comment: Heparin (anti-Xa) levels should [...] EST Shahnaz Scanlon MD HEMATOLOGY ORDERABLE S [facility] [place] [address] * (ABNORMAL) CBC (with Diff) (06/13/2024 2:26 AM EST) White Blood Cell 9.98(H) 4.00 - 9.50 x10(3)/mc L 06/13/2024 2:41 AM [facility] Red Blood Cell 5.11 4.58 - 5.54 x10(6)/mc L 06/13/2024 2:41 AM [facility] Hemoglobin 15.3 13.7 - 16.5 g/dL 06/13/2024 2:41 AM [facility] Hematocrit 47.1 40.5 - 48.5 % 06/13/2024 2:41 AM [facility] Mean Cell Volume 92.2 82.9 - 93.1 fL 06/13/2024 2:41 AM [facility] Mean Cell Hemoglobin 29.9 27.5 - 32.1 pg 06/13/2024 2:41 AM [facility] Mean Cell Hemoglobin Concentration 32.5 32.0 - 35.7 g/dL 06/13/2024 2:41 AM [facility] Platelet 194 145 - 357 x10(3)/mc L 06/13/2024 2:41 AM [facility] Mean Platelet Volume 9.7 7.6 - 12.9 fL 06/13/2024 2:41 AM [facility] RDW Standard Deviation 47.5(H) 36.0 - 45.0 fL 06/13/2024 2:41 AM [facility] RDW coefficient of variation 13.8 11.4 - 13.8 % 06/13/2024 2:41 AM [facility] NRBC% auto 0.0 % 06/13/2024 2:41 AM [facility] NRBC Absolute <0.01 <0.01 x10(3)/mc L 06/13/2024 2:41 AM [facility] Neutrophil % 48.8 % 06/13/2024 2:41 AM [facility] Neutrophil Absolute (ANC) - Automated 4.87 1.70 - 6.10 x10(3)/mc L 06/13/2024 2:41 AM [facility] Lymph % 35.3 % 06/13/2024 2:41 AM [facility] Lymph Absolute 3.52(H) 0.90 - 3.20 x10(3)/mc L 06/13/2024 2:41 AM [facility] Monocyte % 10.1 % 06/13/2024 2:41 AM [facility] Monocyte Absolute 1.01(H) 0.30 - 0.90 x10(3)/mc L 06/13/2024 2:41 AM [facility] Eos % 4.4 % 06/13/2024 2:41 AM [facility] Eos Absolute 0.44(H) 0.00 - 0.40 x10(3)/mc L 06/13/2024 2:41 AM [facility] Basophil % 0.9 % 06/13/2024 2:41 AM [facility] Baso Absolute 0.09 0.00 - 0.10 x10(3)/mc L 06/13/2024 2:41 AM [facility] Immature Gran % 0.5 % 2:41 AM [facility] Immature Gran Absolute 0.05(H) 0.00 - 0.04 x10(3)/mc L 06/13/2024 2:41 AM [facility] Blood VENOUS BLOOD SPECIMEN / Unknown Venipuncture / Unknown 06/13/2024 2:26 AM EST 06/13/2024 2:32 AM EST Shahnaz Scanlon MD HEMATOLOGY ORDERABLE S [facility] [place] [address] * Magnesium (06/13/2024 2:26 AM EST) Magnesium 0.78 0.69 - 1.07 mMol/L 06/13/2024 2:58 AM EST [facility] Blood VENOUS BLOOD SPECIMEN / Unknown Venipuncture / Unknown 06/13/2024 2:26 AM EST 06/13/2024 2:31 AM EST Shahnaz Scanlon MD CHEMISTRY ORDERABLES Performing Organization Address City/[facility] [address] [facility]/ZIP Co de Phone Number [facility] [place] [address] * (ABNORMAL) Basic Metabolic Panel (06/13/2024 2:26 AM EST) Glucose 121 65 - 199 mg/dL 06/13/2024 2:58 AM EST [facility] Comment:Glucose Concentratio n >=200 mg/dL plus symptoms is consistent with Diabetes Mellitus. Blood Urea Nitrogen 21(H) 10 - 20 mg/dL 06/13/2024 2:58 AM [facility] Creatinine 1.07 0.80 - 1.50 mg/dL 06/13/2024 2:58 AM EST [facility] Sodium 136 135 - 145 mMol/L 06/13/2024 2:58 AM [facility] Potassium 3.9 3.5 - 5.0 mMol/L 06/13/2024 2:58 AM [facility] Chloride 99 98 - 107 mMol/L 06/13/2024 2:58 AM [facility] Carbon Dioxide 27 22 - 31 mMol/L 06/13/2024 2:58 AM [facility] Anion Gap 10 5 - 15 mMol/L 06/13/2024 2:58 AM EST [facility] Calcium 9.7 8.5 - 10.5 mg/dL 06/13/2024 2:58 AM EST [facility] Est Glomerular Filtration Rate - Male 76 mL/min/1. 73 m?? 06/13/2024 2:58 AM EST [facility] Comment: This patient's estimated GFR [...] AM EST Shahnaz Scanlon MD CHEMISTRY ORDERABLES [facility] [place] [address] * POC, GLUCOSE (06/12/2024 11:53 PM EST) [facility] Signature Glucometer, POC 141 65 - 199 mg/dL 06/12/2024 11:54 PM EST [facility] Comment:Supplemental ranges: <140 mg/dL before meals <180 mg/dL all other times of the day. Blood CAPILLARY BLOOD / Unknown 06/12/2024 11:53 PM EST 06/12/2024 11:54 PM EST Ethel Carrillo MD POINT OF CARE TEST O RDERABLES [facility] [place] [address] * POC, GLUCOSE (06/12/2024 7:32 PM EST) Glucometer, POC 158 65 - 199 mg/dL 06/12/2024 7:32 PM EST [facility] Comment:Supplemental ranges: <140 mg/dL before meals <180 mg/dL all other times of the day. Blood CAPILLARY BLOOD / Unknown 06/12/2024 7:32 PM EST 06/12/2024 7:32 PM EST Ethel Carrillo MD POINT OF CARE TEST O RDERABLES Performing Organization Address City/[facility]/ZIP Co de Phone Number [facility] [place] [address] * POC, GLUCOSE (06/12/2024 3:41 PM EST) Glucometer, POC 113 65 - 199 mg/dL 06/12/2024 3:41 PM EST [facility] Comment:Supplemental ranges: <140 mg/dL before meals <180 mg/dL all other times of the day. Blood CAPILLARY BLOOD / Unknown 06/12/2024 3:41 PM EST 06/12/2024 3:41 PM EST Ethel Carrillo MD POINT OF CARE TEST O RDERABLES Performing Organization Address City/[facility] [address]/ZIP Co de Phone Number [facility] [place] [address] * Potassium (06/12/2024 2:19 PM EST) Potassium 4.5 3.5 - 5.0 mMol/L 06/12/2024 2:45 PM EST [facility] Blood VENOUS BLOOD SPECIMEN / Unknown Venipuncture / Unknown 06/12/2024 2:19 PM EST 06/12/2024 2:23 PM EST Shahnaz Scanlon MD CHEMISTRY ORDERABLES Performing Organization Address City/[facility] [address] [facility]/ZIP Co de Phone Number [facility] [place] [address] * (ABNORMAL) POC, GLUCOSE (06/12/2024 11:21 AM EST) Glucometer, POC 207(H) 65 - 199 mg/dL 06/12/2024 11:21 AM EST [facility] Comment:Supplemental ranges: <140 mg/dL before meals <180 mg/dL all other times of the day. Blood CAPILLARY BLOOD / Unknown 06/12/2024 11:21 AM EST 06/12/2024 11:22 AM EST Ethel Carrillo MD POINT OF CARE TEST O NIKA Performing Organization Address City/[facility] [address]/ZIP Co de Phone Number [facility] [place] [address] * POC, GLUCOSE (06/12/2024 8:00 AM EST) Glucometer, POC 169 65 - 199 mg/dL 06/12/2024 8:01 AM EST [facility] Comment:Supplemental ranges: <140 mg/dL before meals <180 mg/dL all other times of the day. Blood CAPILLARY BLOOD / Unknown 06/12/2024 8:00 AM EST 06/12/2024 8:01 AM EST Ethel Carrillo MD POINT OF CARE TEST O NIKA [facility] [place] [address] * POC, GLUCOSE (06/12/2024 4:25 AM EST) Glucometer, POC 132 65 - 199 mg/dL 06/12/2024 4:26 AM EST [facility] Comment:Supplemental ranges: <140 mg/dL before meals <180 mg/dL all other times of the day. Blood CAPILLARY BLOOD / Unknown 06/12/2024 4:25 AM EST 06/12/2024 4:26 AM EST Ethel Carrillo MD POINT OF CARE TEST O RDERABLES Performing Organization Address [facility] [address]/ZIP Co de Phone Number [facility] [place] [address] * Heparin (unfractionated) Level (06/12/2024 3:03 AM EST) UF Heparin 0.55 IU/mL 06/12/2024 3:44 AM EST [facility] Comment: Heparin (anti-Xa) levels should [...] MD HEMATOLOGY ORDERABLE S Performing Organization Address [facility] [address] [facility]/ZIP Co de Phone Number [facility] [place] [address] * (ABNORMAL) CBC (with Diff) (06/12/2024 3:03 AM EST) White Blood Cell 9.69(H) 4.00 - 9.50 x10(3)/mc L 06/12/2024 3:36 AM EST [facility] Red Blood Cell 5.05 4.58 - 5.54 x10(6)/mc L 06/12/2024 3:36 AM EST [facility] Hemoglobin 15.2 13.7 - 16.5 g/dL 06/12/2024 3:36 AM [facility] Hematocrit 46.6 40.5 - 48.5 % 06/12/2024 3:36 AM [facility] Mean Cell Volume 92.3 82.9 - 93.1 fL 06/12/2024 3:36 AM [facility] Mean Cell Hemoglobin 30.1 27.5 - 32.1 pg 06/12/2024 3:36 AM [facility] Mean Cell Hemoglobin Concentration 32.6 32.0 - 35.7 g/dL 06/12/2024 3:36 AM [facility] Platelet 194 145 - 357 x10(3)/mc L 06/12/2024 3:36 AM [facility] Mean Platelet Volume 10.1 7.6 - 12.9 fL 06/12/2024 3:36 AM [facility] RDW Standard Deviation 47.7(H) 36.0 - 45.0 fL 06/12/2024 3:36 AM [facility] RDW coefficient of variation 14.0(H) 11.4 - 13.8 % 06/12/2024 3:36 AM [facility] NRBC% auto 0.0 % 06/12/2024 3:36 AM [facility] NRBC Absolute <0.01 <0.01 x10(3)/mc L 06/12/2024 3:36 AM [facility] Neutrophil % 49.9 % 06/12/2024 3:36 AM [facility] Neutrophil Absolute (ANC) - Automated 4.82 1.70 - 6.10 x10(3)/mc L 06/12/2024 3:36 AM [facility] Lymph % 33.5 % 06/12/2024 3:36 AM [facility] Lymph Absolute 3.25(H) 0.90 - 3.20 x10(3)/mc L 06/12/2024 3:36 AM [facility] Monocyte % 11.1 % 06/12/2024 3:36 AM [facility] Monocyte Absolute 1.08(H) 0.30 - 0.90 x10(3)/mc L 06/12/2024 3:36 AM [facility] Eos % 4.1 % 06/12/2024 3:36 AM [facility] Eos Absolute 0.40 0.00 - 0.40 x10(3)/mc L 06/12/2024 3:36 AM [facility] Basophil % 0.8 % 06/12/2024 3:36 AM [facility] Baso Absolute 0.08 0.00 - 0.10 x10(3)/mc L 06/12/2024 3:36 AM [facility] Immature Gran % 0.6 % 3:36 AM [facility] Immature Gran Absolute 0.06(H) 0.00 - 0.04 x10(3)/mc L 06/12/2024 3:36 AM [facility] Blood VENOUS BLOOD SPECIMEN / Unknown Venipuncture / Unknown 06/12/2024 3:03 AM EST 06/12/2024 3:30 AM EST Shahnaz Scanlon MD HEMATOLOGY ORDERABLE S [facility] [place] [address] * Magnesium (06/12/2024 3:03 AM EST) Magnesium 0.79 0.69 - 1.07 mMol/L 06/12/2024 4:01 AM [facility] Blood VENOUS BLOOD SPECIMEN / Unknown Venipuncture / Unknown 06/12/2024 3:03 AM EST 06/12/2024 3:30 AM EST Shahnaz Scanlon MD CHEMISTRY ORDERABLES [facility] [place] [address] * (ABNORMAL) Basic Metabolic Panel (06/12/2024 3:03 AM EST) Glucose 132 65 - 199 mg/dL 06/12/2024 4:01 AM [facility] Comment:Glucose Concentratio n >=200 mg/dL plus symptoms is consistent with Diabetes Mellitus. Blood Urea Nitrogen 23(H) 10 - 20 mg/dL 06/12/2024 4:01 AM [facility] Creatinine 1.15 0.80 - 1.50 mg/dL 06/12/2024 4:01 AM [facility] Sodium 138 135 - 145 mMol/L 06/12/2024 4:01 AM [facility] Potassium 3.8 3.5 - 5.0 mMol/L 06/12/2024 4:01 AM [facility] Chloride 98 98 - 107 mMol/L 06/12/2024 4:01 AM [facility] Carbon Dioxide 29 22 - 31 mMol/L 06/12/2024 4:01 AM [facility] Anion Gap 11 5 - 15 mMol/L 06/12/2024 4:01 AM [facility] Calcium 9.5 8.5 - 10.5 mg/dL 06/12/2024 4:01 AM [facility] Est Glomerular Filtration Rate - Male 70 mL/min/1. 73 m?? 06/12/2024 4:01 AM [facility] Comment: This patient's estimated GFR was [...] Scanlon MD CHEMISTRY ORDERABLES Performing Organization Address [facility] [address] [facility]/ZIP Co de Phone Number [facility] [place] [address] * POC, GLUCOSE (06/11/2024 11:56 PM EST) Glucometer, POC 135 65 - 199 mg/dL 06/11/2024 11:56 PM EST [facility] Comment:Supplemental ranges: <140 mg/dL before meals <180 mg/dL all other times of the day. Blood CAPILLARY BLOOD / Unknown 06/11/2024 11:56 PM EST 06/11/2024 11:56 PM EST Ethel Carrillo MD POINT OF CARE TEST Abimael MAHER Performing Organization Address [facility] [address] [facility] Co de Phone Number [facility] [place] [address] * (ABNORMAL) POC, GLUCOSE (06/11/2024 8:25 PM EST) Glucometer, POC 210(H) 65 - 199 mg/dL 06/11/2024 8:26 PM EST [facility] Comment:Supplemental ranges: <140 mg/dL before meals <180 mg/dL all other times of the day. Blood CAPILLARY BLOOD / Unknown 06/11/2024 8:25 PM EST 06/11/2024 8:26 PM EST Ethel Carrillo MD POINT OF CARE TEST O NIKA Performing Organization Address City/[facility] Co de Phone Number [facility] [place] [address] * POC, GLUCOSE (06/11/2024 4:24 PM EST) Glucometer, POC 81 65 - 199 mg/dL 06/11/2024 4:24 PM EST [facility] Comment:Supplemental ranges: <140 mg/dL before meals <180 mg/dL all other times of the day. Blood CAPILLARY BLOOD / Unknown 06/11/2024 4:24 PM EST 06/11/2024 4:25 PM EST Ethel Carrillo MD POINT OF CARE TEST O NIKA Performing Organization Address City/[facility] [address]/ZIP Co de Phone Number [facility] [place] [address] * (ABNORMAL) POC, GLUCOSE (06/11/2024 11:08 AM EST) Glucometer, POC 233(H) 65 - 199 mg/dL 06/11/2024 11:08 AM EST [facility] Comment:Supplemental ranges: <140 mg/dL before meals <180 mg/dL all other times of the day. Blood CAPILLARY BLOOD / Unknown 06/11/2024 11:08 AM EST 06/11/2024 11:08 AM EST Ethel Carrillo MD POINT OF CARE TEST O NIKA Performing Organization Address [facility] [address]/[facility] Co de Phone Number [facility] [place] [address] * POC, GLUCOSE (06/11/2024 7:48 AM EST) Glucometer, POC 184 65 - 199 mg/dL 06/11/2024 7:49 AM EST [facility] Comment:Supplemental ranges: <140 mg/dL before meals <180 mg/dL all other times of the day. Blood CAPILLARY BLOOD / Unknown 06/11/2024 7:48 AM EST 06/11/2024 7:49 AM EST Melida Valdes MD POINT OF CARE TEST O NIKA Performing Organization Address City/[facility] [address]/ZIP Co de Phone Number [facility] [place] [address] * Heparin (unfractionated) Level (06/11/2024 5:31 AM EST) UF Heparin 0.55 IU/mL 06/11/2024 6:10 AM EST [facility] Comment: Heparin (anti-Xa) levels should [...] EST Shahnaz Scanlon MD HEMATOLOGY ORDERABLE S [facility] [place] [address] * POC, GLUCOSE (06/11/2024 3:57 AM EST) Glucometer, POC 132 65 - 199 mg/dL 06/11/2024 3:58 AM EST [facility] Comment:Supplemental ranges: <140 mg/dL before meals <180 mg/dL all other times of the day. Blood CAPILLARY BLOOD / Unknown 06/11/2024 3:57 AM EST 06/11/2024 3:58 AM EST Melida Valdes MD POINT OF CARE TEST O RDERABLES [facility] [place] [address] * (ABNORMAL) CBC (with Diff) (06/11/2024 2:13 AM EST) White Blood Cell 9.91(H) 4.00 - 9.50 x10(3)/mc L 06/11/2024 2:26 AM [facility] Red Blood Cell 5.13 4.58 - 5.54 x10(6)/mc L 06/11/2024 2:26 AM [facility] Hemoglobin 15.3 13.7 - 16.5 g/dL 06/11/2024 2:26 AM [facility] Hematocrit 47.5 40.5 - 48.5 % 06/11/2024 2:26 AM [facility] Mean Cell Volume 92.6 82.9 - 93.1 fL 06/11/2024 2:26 AM [facility] Mean Cell Hemoglobin 29.8 27.5 - 32.1 pg 06/11/2024 2:26 AM [facility] Mean Cell Hemoglobin Concentration 32.2 32.0 - 35.7 g/dL 06/11/2024 2:26 AM [facility] Platelet 184 145 - 357 x10(3)/mc L 06/11/2024 2:26 AM [facility] Mean Platelet Volume 9.7 7.6 - 12.9 fL 06/11/2024 2:26 AM [facility] RDW Standard Deviation 48.0(H) 36.0 - 45.0 fL 06/11/2024 2:26 AM [facility] RDW coefficient of variation 14.0(H) 11.4 - 13.8 % 06/11/2024 2:26 AM [facility] NRBC% auto 0.0 % 06/11/2024 2:26 AM [facility] NRBC Absolute <0.01 <0.01 x10(3)/mc L 06/11/2024 2:26 AM [facility] Neutrophil % 50.3 % 06/11/2024 2:26 AM [facility] Neutrophil Absolute (ANC) - Automated 4.98 1.70 - 6.10 x10(3)/mc L 06/11/2024 2:26 AM [facility] Lymph % 33.5 % 06/11/2024 2:26 AM [facility] Lymph Absolute 3.32(H) 0.90 - 3.20 x10(3)/mc L 06/11/2024 2:26 AM [facility] Monocyte % 10.9 % 06/11/2024 2:26 AM [facility] Monocyte Absolute 1.08(H) 0.30 - 0.90 x10(3)/mc L 06/11/2024 2:26 AM [facility] Eos % 4.1 % 06/11/2024 2:26 AM [facility] Eos Absolute 0.41(H) 0.00 - 0.40 x10(3)/mc L 06/11/2024 2:26 AM EST [facility] Basophil % 0.7 % 06/11/2024 2:26 AM [facility] Baso Absolute 0.07 0.00 - 0.10 x10(3)/mc L 06/11/2024 2:26 AM [facility] Immature Gran % 0.5 % 2:26 AM [facility] Immature Gran Absolute 0.05(H) 0.00 - 0.04 x10(3)/mc L 06/11/2024 2:26 AM [facility] Blood VENOUS BLOOD SPECIMEN / Unknown Venipuncture / Unknown 06/11/2024 2:13 AM EST 06/11/2024 2:19 AM EST Shahnaz Scanlon MD HEMATOLOGY ORDERABLE S [facility] [place] [address] * Magnesium (06/11/2024 2:13 AM EST) Magnesium 0.83 0.69 - 1.07 mMol/L 06/11/2024 2:51 AM [facility] Blood VENOUS BLOOD SPECIMEN / Unknown Venipuncture / Unknown 06/11/2024 2:13 AM EST 06/11/2024 2:19 AM EST Shahnaz Scanlon MD CHEMISTRY ORDERABLES [facility] [place] [address] * (ABNORMAL) Basic Metabolic Panel (06/11/2024 2:13 AM EST) Pathologist [facility] [place] Glucose 148 65 - 199 mg/dL 06/11/2024 2:51 AM EST [facility] Comment:Glucose Concentratio n >=200 mg/dL plus symptoms is consistent with Diabetes Mellitus. Blood Urea Nitrogen 24(H) 10 - 20 mg/dL 06/11/2024 2:51 AM [facility] Creatinine 1.06 0.80 - 1.50 mg/dL 06/11/2024 2:51 AM EST [facility] Sodium 134(L) 135 - 145 mMol/L 06/11/2024 2:51 AM [facility] Potassium 4.1 3.5 - 5.0 mMol/L 06/11/2024 2:51 AM [facility] Chloride 96(L) 98 - 107 mMol/L 06/11/2024 2:51 AM [facility] Carbon Dioxide 28 22 - 31 mMol/L 06/11/2024 2:51 AM EST [facility] Anion Gap 10 5 - 15 mMol/L 06/11/2024 2:51 AM [facility] Calcium 9.4 8.5 - 10.5 mg/dL 06/11/2024 2:51 AM [facility] Est Glomerular Filtration Rate - Male 77 mL/min/1. 73 m?? 06/11/2024 2:51 AM EST [facility] Comment: This patient's estimated GFR [...] Scanlon MD CHEMISTRY ORDERABLES Performing Organization Address City/[facility] [address]/ZIP Co de Phone Number [facility] [place] [address] * POC, GLUCOSE (06/11/2024 12:50 AM EST) Glucometer, POC 144 65 - 199 mg/dL 06/11/2024 12:51 AM EST [facility] Comment:Supplemental ranges: <140 mg/dL before meals <180 mg/dL all other times of the day. Blood CAPILLARY BLOOD / Unknown 06/11/2024 12:50 AM EST 06/11/2024 12:51 AM EST Melida Valdes MD POINT OF CARE TEST O RDERABLES [facility] [place] [address] * (ABNORMAL) POC, GLUCOSE (06/10/2024 7:22 PM EST) Glucometer, POC 236(H) 65 - 199 mg/dL 06/10/2024 7:22 PM EST [facility] Comment:Supplemental ranges: <140 mg/dL before meals <180 mg/dL all other times of the day. Blood CAPILLARY BLOOD / Unknown 06/10/2024 7:22 PM EST 06/10/2024 7:22 PM EST Melida Valdes MD POINT OF CARE TEST O RDERABLES [facility] [place] [address] * (ABNORMAL) Blood Gas, Venous (06/10/2024 5:42 PM EST) pH, Venous 7.34 7.32 - 7.42 06/10/2024 5:50 PM EST [facility] PCO2, Venous 52 38 - 58 mmHg 06/10/2024 5:50 PM [facility] PO2, Venous 24 16 - 65 mmHg 06/10/2024 5:50 PM EST [facility] Bicarbonate, Venous 27.4 22 - 31 mmol/L 06/10/2024 5:50 PM [facility] Base Excess, Venous 1.7(L) 1.9 - 4.5 mmol/L 06/10/2024 5:50 PM [facility] Hemoglobin, Venous 16.8(H) 13.7 - 16.5 g/dL 06/10/2024 5:50 PM [facility] Oxyhemoglobin, Venous 39.0 % 06/10/2024 5:50 PM [facility] Carboxyhemoglobin , Venous 0.3 % 06/10/2024 5:50 PM [facility] Comment: Nonsmokers: 0.5-1.5% COHB ?? Smokers: Variable ??but usually less than 10% ?? Toxic: 20-30% COHB ?? Lethal: Greater than 60% COHB Methemoglobin, Venous 0.5 <=1.5 % 06/10/2024 5:50 PM EST [facility] Sodium, Venous 137 135 - 145 mmol/L 06/10/2024 5:50 PM EST [facility] Chloride, Venous 96(L) 98 - 107 mmol/L 06/10/2024 5:50 PM EST [facility] Potassium, Venous 4.6 3.5 - 5.0 mmol/L 06/10/2024 5:50 PM [facility] Ionized Calcium, Venous 1.23 1.15 - 1.33 mmol/L 06/10/2024 5:50 PM EST [facility] Glucose, Venous 114 65 - 199 mg/dL 06/10/2024 5:50 PM EST [facility] Comment:Glucose Concentratio n >=200 mg/dL plus symptoms is consistent with Diabetes Mellitus. Lactate, Venous 1.1 0.5 - 2.2 mmol/L 06/10/2024 5:50 PM [facility] Blood Gas Source Venous 06/10/20 5:50 PM [facility] Blood VENOUS BLOOD SPECIMEN / Unknown Blood Gas Venous / Unknown 06/10/2024 5:42 PM EST 06/10/2024 5:47 PM EST Melida Valdes MD CHEMISTRY ORDERABLES [facility] [place] [address] * POC, GLUCOSE (06/10/2024 5:35 PM EST) [facility] Signature Glucometer, POC 123 65 - 199 mg/dL 06/10/2024 5:35 PM EST [facility] Comment:Supplemental ranges: <140 mg/dL before meals <180 mg/dL all other times of the day. Blood CAPILLARY BLOOD / Unknown 06/10/2024 5:35 PM EST 06/10/2024 5:35 PM EST Melida Valdes MD POINT OF CARE TEST O RDERABLES [facility] [place] [address] * (ABNORMAL) POC, GLUCOSE (06/10/2024 11:25 AM EST) Glucometer, POC 216(H) 65 - 199 mg/dL 06/10/2024 11:25 AM EST [facility] Comment:Supplemental ranges: <140 mg/dL before meals <180 mg/dL all other times of the day. Blood CAPILLARY BLOOD / Unknown 06/10/2024 11:25 AM EST 06/10/2024 11:25 AM EST Melida Valdes MD POINT OF CARE TEST O NIKA Performing Organization Address City/[facility] [address]/ZIP Co de Phone Number [facility] [place] [address] * (ABNORMAL) POC, GLUCOSE (06/10/2024 7:46 AM EST) Glucometer, POC 206(H) 65 - 199 mg/dL 06/10/2024 7:46 AM EST [facility] Comment:Supplemental ranges: <140 mg/dL before meals <180 mg/dL all other times of the day. Blood CAPILLARY BLOOD / Unknown 06/10/2024 7:46 AM EST 06/10/2024 7:46 AM EST Melida Valdes MD POINT OF CARE TEST O NIKA Performing Organization Address City/[facility] [address]/ZIP Co de Phone Number [facility] [place] [address] * POC, GLUCOSE (06/10/2024 4:23 AM EST) Glucometer, POC 154 65 - 199 mg/dL 06/10/2024 4:24 AM EST [facility] Comment:Supplemental ranges: <140 mg/dL before meals <180 mg/dL all other times of the day. Blood CAPILLARY BLOOD / Unknown 06/10/2024 4:23 AM EST 06/10/2024 4:24 AM EST Melida Valdes MD POINT OF CARE TEST O NIKA [facility] [place] [address] * (ABNORMAL) CBC (with Diff) (06/10/2024 1:55 AM EST) White Blood Cell 9.00 4.00 - 9.50 x10(3)/mc L 06/10/2024 2:14 AM [facility] Red Blood Cell 5.03 4.58 - 5.54 x10(6)/mc L 06/10/2024 2:14 AM [facility] Hemoglobin 14.9 13.7 - 16.5 g/dL 06/10/2024 2:14 AM [facility] Hematocrit 46.4 40.5 - 48.5 % 06/10/2024 2:14 AM [facility] Mean Cell Volume 92.2 82.9 - 93.1 fL 06/10/2024 2:14 AM [facility] Mean Cell Hemoglobin 29.6 27.5 - 32.1 pg 06/10/2024 2:14 AM [facility] Mean Cell Hemoglobin Concentration 32.1 32.0 - 35.7 g/dL 06/10/2024 2:14 AM [facility] Platelet 191 145 - 357 x10(3)/mc L 06/10/2024 2:14 AM [facility] Mean Platelet Volume 9.7 7.6 - 12.9 fL 06/10/2024 2:14 AM [facility] RDW Standard Deviation 47.4(H) 36.0 - 45.0 fL 06/10/2024 2:14 AM [facility] RDW coefficient of variation 14.1(H) 11.4 - 13.8 % 06/10/2024 2:14 AM [facility] NRBC% auto 0.0 % 06/10/2024 2:14 AM [facility] NRBC Absolute <0.01 <0.01 x10(3)/mc L 06/10/2024 2:14 AM [facility] Neutrophil % 48.7 % 06/10/2024 2:14 AM [facility] Neutrophil Absolute (ANC) - Automated 4.39 1.70 - 6.10 x10(3)/mc L 06/10/2024 2:14 AM [facility] Lymph % 34.9 % 06/10/2024 2:14 AM [facility] Lymph Absolute 3.14 0.90 - 3.20 x10(3)/mc L 06/10/2024 2:14 AM [facility] Monocyte % 11.2 % 06/10/2024 2:14 AM [facility] Monocyte Absolute 1.01(H) 0.30 - 0.90 x10(3)/mc L 06/10/2024 2:14 AM [facility] Eos % 3.6 % 06/10/2024 2:14 AM [facility] Eos Absolute 0.32 0.00 - 0.40 x10(3)/mc L 06/10/2024 2:14 AM [facility] Basophil % 1.0 % 06/10/2024 2:14 AM [facility] Baso Absolute 0.09 0.00 - 0.10 x10(3)/mc L 06/10/2024 2:14 AM [facility] Immature Gran % 0.6 % 2:14 AM [facility] Immature Gran Absolute 0.05(H) 0.00 - 0.04 x10(3)/mc L 06/10/2024 2:14 AM [facility] Blood VENOUS BLOOD SPECIMEN / Unknown Venipuncture / Unknown 06/10/2024 1:55 AM EST 06/10/2024 2:05 AM EST Shahnaz Scanlon MD HEMATOLOGY ORDERABLE S [facility] [place] [address] * Magnesium (06/10/2024 1:55 AM EST) Magnesium 0.83 0.69 - 1.07 mMol/L 06/10/2024 2:37 AM [facility] Blood VENOUS BLOOD SPECIMEN / Unknown Venipuncture / Unknown 06/10/2024 1:55 AM EST 06/10/2024 2:05 AM EST Shahnaz Scanlon MD CHEMISTRY ORDERABLES [facility] [address] [place] [address] * (ABNORMAL) Basic Metabolic Panel (06/10/2024 1:55 AM EST) Pathologist [facility] [place] Glucose 140 65 - 199 mg/dL 06/10/2024 2:37 AM [facility] Comment:Glucose Concentratio n >=200 mg/dL plus symptoms is consistent with Diabetes Mellitus. Blood Urea Nitrogen 24(H) 10 - 20 mg/dL 06/10/2024 2:37 AM [facility] Creatinine 1.06 0.80 - 1.50 mg/dL 06/10/2024 2:37 AM [facility] Sodium 138 135 - 145 mMol/L 06/10/2024 2:37 AM [facility] Potassium 4.1 3.5 - 5.0 mMol/L 06/10/2024 2:37 AM [facility] Chloride 100 98 - 107 mMol/L 06/10/2024 2:37 AM [facility] Carbon Dioxide 25 22 - 31 mMol/L 06/10/2024 2:37 AM [facility] Anion Gap 13 5 - 15 mMol/L 06/10/2024 2:37 AM [facility] Calcium 9.5 8.5 - 10.5 mg/dL 06/10/2024 2:37 AM [facility] Est Glomerular Filtration Rate - Male 77 mL/min/1. 73 m?? 06/10/2024 2:37 AM EST [facility] Comment: This patient's estimated GFR [...] AM EST Shahnaz Scanlon MD CHEMISTRY ORDERABLES [facility] [place] [address] * Heparin (unfractionated) Level (06/10/2024 1:54 AM EST) UF Heparin 0.56 IU/mL 06/10/2024 2:41 AM EST [facility] Comment: Heparin (anti-Xa) levels should [...] MD HEMATOLOGY ORDERABLE S Performing Organization Address [facility] [address]/ZIP Co de Phone Number [facility] [place] [address] * POC, GLUCOSE (06/10/2024 12:05 AM EST) Glucometer, POC 125 65 - 199 mg/dL 06/10/2024 12:05 AM EST [facility] Comment:Supplemental ranges: <140 mg/dL before meals <180 mg/dL all other times of the day. Blood CAPILLARY BLOOD / Unknown 06/10/2024 12:05 AM EST 06/10/2024 12:05 AM EST Melida Valdes MD POINT OF CARE TEST O NIKA Performing Organization Address [facility] [address]/[facility] Co de Phone Number [facility] [place] [address] * POC, GLUCOSE (06/09/2024 8:36 PM EST) Glucometer, POC 197 65 - 199 mg/dL 06/09/2024 8:36 PM EST [facility] Comment:Supplemental ranges: <140 mg/dL before meals <180 mg/dL all other times of the day. Blood CAPILLARY BLOOD / Unknown 06/09/2024 8:36 PM EST 06/09/2024 8:36 PM EST Melida Valdes MD POINT OF CARE TEST O NIKA Performing Organization Address City/[facility] [address]/ZIP Co de Phone Number [facility] [place] [address] * POC, GLUCOSE (06/09/2024 5:27 PM EST) Glucometer, POC 174 65 - 199 mg/dL 06/09/2024 5:28 PM EST [facility] Comment:Supplemental ranges: <140 mg/dL before meals <180 mg/dL all other times of the day. Blood CAPILLARY BLOOD / Unknown 06/09/2024 5:27 PM EST 06/09/2024 5:28 PM EST Melida Vadles MD POINT OF CARE TEST O RDBECKIE Performing Organization Address City/[facility] [address]/ZIP Co de Phone Number [facility] [place] [address] * (ABNORMAL) POC, GLUCOSE (06/09/2024 11:52 AM EST) Glucometer, POC 211(H) 65 - 199 mg/dL 06/09/2024 11:52 AM EST [facility] Comment:Supplemental ranges: <140 mg/dL before meals <180 mg/dL all other times of the day. Blood CAPILLARY BLOOD / Unknown 06/09/2024 11:52 AM EST 06/09/2024 11:52 AM EST Melida Valdes MD POINT OF CARE TEST O NIKA Performing Organization Address City/[facility] [address]/ZIP Co de Phone Number [facility] [place] [address] * Potassium (06/09/2024 8:25 AM EST) Potassium 4.6 3.5 - 5.0 mMol/L 06/09/2024 10:09 AM EST [facility] Blood VENOUS BLOOD SPECIMEN / Unknown Venipuncture / Unknown 06/09/2024 8:25 AM EST 06/09/2024 8:42 AM EST Shahnaz Scanlon MD CHEMISTRY ORDERABLES Performing Organization Address City/[facility] [address]/ZIP Co de Phone Number [facility] [place] [address] * (ABNORMAL) POC, GLUCOSE (06/09/2024 8:10 AM EST) Glucometer, POC 209(H) 65 - 199 mg/dL 06/09/2024 8:10 AM EST [facility] Comment:Supplemental ranges: <140 mg/dL before meals <180 mg/dL all other times of the day. Blood CAPILLARY BLOOD / Unknown 06/09/2024 8:10 AM EST 06/09/2024 8:11 AM EST Melida Valdes MD POINT OF CARE TEST O NIKA Performing Organization Address [facility] [address]/[facility] de Phone Number [facility] [place] [address] * POC, GLUCOSE (06/09/2024 4:40 AM EST) Glucometer, POC 131 65 - 199 mg/dL 06/09/2024 4:40 AM EST [facility] Comment:Supplemental ranges: <140 mg/dL before meals <180 mg/dL all other times of the day. Blood CAPILLARY BLOOD / Unknown 06/09/2024 4:40 AM EST 06/09/2024 4:41 AM EST Melida Valdes MD POINT OF CARE TEST Abimael MAHER Performing Organization Address [facility] [address]/[facility] de Phone Number [facility] [place] [address] * Heparin (unfractionated) Level (06/09/2024 2:12 AM EST) UF Heparin 0.55 IU/mL 06/09/2024 2:33 AM EST [facility] Comment: Heparin (anti-Xa) levels should [...] EST Shahnaz Scanlon MD HEMATOLOGY ORDERABLE S [facility] [place] [address] * (ABNORMAL) CBC (with Diff) (06/09/2024 2:12 AM EST) White Blood Cell 9.80(H) 4.00 - 9.50 x10(3)/mc L 06/09/2024 2:44 AM [facility] Red Blood Cell 5.18 4.58 - 5.54 x10(6)/mc L 06/09/2024 2:44 AM [facility] Hemoglobin 15.5 13.7 - 16.5 g/dL 06/09/2024 2:44 AM [facility] Hematocrit 47.4 40.5 - 48.5 % 06/09/2024 2:44 AM [facility] Mean Cell Volume 91.5 82.9 - 93.1 fL 06/09/2024 2:44 AM [facility] Mean Cell Hemoglobin 29.9 27.5 - 32.1 pg 06/09/2024 2:44 AM [facility] Mean Cell Hemoglobin Concentration 32.7 32.0 - 35.7 g/dL 06/09/2024 2:44 AM [facility] Platelet 205 145 - 357 x10(3)/mc L 06/09/2024 2:44 AM [facility] Mean Platelet Volume 9.7 7.6 - 12.9 fL 06/09/2024 2:44 AM [facility] RDW Standard Deviation 47.7(H) 36.0 - 45.0 fL 06/09/2024 2:44 AM [facility] RDW coefficient of variation 14.1(H) 11.4 - 13.8 % 06/09/2024 2:44 AM [facility] NRBC% auto 0.0 % 06/09/2024 2:44 AM [facility] NRBC Absolute <0.01 <0.01 x10(3)/mc L 06/09/2024 2:44 AM [facility] Neutrophil % 53.0 % 06/09/2024 2:44 AM [facility] Neutrophil Absolute (ANC) - Automated 5.19 1.70 - 6.10 x10(3)/mc L 06/09/2024 2:44 AM [facility] Lymph % 31.6 % 06/09/2024 2:44 AM [facility] Lymph Absolute 3.10 0.90 - 3.20 x10(3)/mc L 06/09/2024 2:44 AM [facility] Monocyte % 11.0 % 06/09/2024 2:44 AM [facility] Monocyte Absolute 1.08(H) 0.30 - 0.90 x10(3)/mc L 06/09/2024 2:44 AM [facility] Eos % 2.9 % 06/09/2024 2:44 AM [facility] Eos Absolute 0.28 0.00 - 0.40 x10(3)/mc L 06/09/2024 2:44 AM [facility] Basophil % 0.9 % 06/09/2024 2:44 AM [facility] Baso Absolute 0.09 0.00 - 0.10 x10(3)/mc L 06/09/2024 2:44 AM [facility] Immature Gran % 0.6 % 2:44 AM [facility] Immature Gran Absolute 0.06(H) 0.00 - 0.04 x10(3)/mc L 06/09/2024 2:44 AM EST [facility] Blood VENOUS BLOOD SPECIMEN / Unknown Venipuncture / Unknown 06/09/2024 2:12 AM EST 06/09/2024 2:21 AM EST Shahnaz Scanlon MD HEMATOLOGY ORDERABLE S Performing Organization Address City/[facility] [address]/ZIP Co de Phone Number [facility] [place] [address] * Magnesium (06/09/2024 2:12 AM EST) Magnesium 0.83 0.69 - 1.07 mMol/L 06/09/2024 2:52 AM [facility] Blood VENOUS BLOOD SPECIMEN / Unknown Venipuncture / Unknown 06/09/2024 2:12 AM EST 06/09/2024 2:22 AM EST Shahnaz Scanlon MD CHEMISTRY ORDERABLES [facility] [place] [address] * (ABNORMAL) Basic Metabolic Panel (06/09/2024 2:12 AM EST) Glucose 147 65 - 199 mg/dL 06/09/2024 2:52 AM [facility] Comment:Glucose Concentratio n >=200 mg/dL plus symptoms is consistent with Diabetes Mellitus. Blood Urea Nitrogen 24(H) 10 - 20 mg/dL 06/09/2024 2:52 AM [facility] Creatinine 1.11 0.80 - 1.50 mg/dL 06/09/2024 2:52 AM [facility] Sodium 136 135 - 145 mMol/L 06/09/2024 2:52 AM [facility] Potassium 3.9 3.5 - 5.0 mMol/L 06/09/2024 2:52 AM [facility] Chloride 98 98 - 107 mMol/L 06/09/2024 2:52 AM [facility] Carbon Dioxide 27 22 - 31 mMol/L 06/09/2024 2:52 AM [facility] Anion Gap 11 5 - 15 mMol/L 06/09/2024 2:52 AM [facility] Calcium 9.7 8.5 - 10.5 mg/dL 06/09/2024 2:52 AM [facility] Est Glomerular Filtration Rate - Male 73 mL/min/1. 73 m?? 06/09/2024 2:52 AM [facility] Comment: This patient's estimated GFR was [...] AM EST Shahnaz Scanlon MD CHEMISTRY ORDERABLES [facility] [place] [place] [address] [place] [address] * POC, GLUCOSE (06/09/2024 12:34 AM EST) Glucometer, POC 186 65 - 199 mg/dL 06/09/2024 12:34 AM EST [facility] Comment:Supplemental ranges: <140 mg/dL before meals <180 mg/dL all other times of the day. Blood CAPILLARY BLOOD / Unknown 06/09/2024 12:34 AM EST 06/09/2024 12:34 AM EST Melida Valdes MD POINT OF CARE TEST O RDERABLES Performing Organization Address [facility] [address]/[facility] Co de Phone Number [facility] [place] [address] * POC, GLUCOSE (06/08/2024 8:27 PM EST) Glucometer, POC 176 65 - 199 mg/dL 06/08/2024 8:28 PM EST [facility] Comment:Supplemental ranges: <140 mg/dL before meals <180 mg/dL all other times of the day. Blood CAPILLARY BLOOD / Unknown 06/08/2024 8:27 PM EST 06/08/2024 8:28 PM EST Melida Valdes MD POINT OF CARE TEST O RDERABLES Performing Organization Address [facility] [address]/[facility] de Phone Number [facility] [place] [address] * POC, GLUCOSE (06/08/2024 4:16 PM EST) Glucometer, POC 159 65 - 199 mg/dL 06/08/2024 4:16 PM EST [facility] Comment:Supplemental ranges: <140 mg/dL before meals <180 mg/dL all other times of the day. Blood CAPILLARY BLOOD / Unknown 06/08/2024 4:16 PM EST 06/08/2024 4:16 PM EST Melida Valdes MD POINT OF CARE TEST O RDERABLES Performing Organization Address [facility] [address]/[facility] Co de Phone Number [facility] [place] [address] * (ABNORMAL) POC, GLUCOSE (06/08/2024 12:35 PM EST) Glucometer, POC 226(H) 65 - 199 mg/dL 06/08/2024 12:35 PM EST [facility] Comment:Supplemental ranges: <140 mg/dL before meals <180 mg/dL all other times of the day. Blood CAPILLARY BLOOD / Unknown 06/08/2024 12:35 PM EST 06/08/2024 12:35 PM EST Melida Valdes MD POINT OF CARE TEST O NIKA Performing Organization Address [facility] [address]/[facility] Co de Phone Number [facility] [place] [address] * POC, GLUCOSE (06/08/2024 8:10 AM EST) Glucometer, POC 190 65 - 199 mg/dL 06/08/2024 8:14 AM EST [facility] Comment:Supplemental ranges: <140 mg/dL before meals <180 mg/dL all other times of the day. Blood CAPILLARY BLOOD / Unknown 06/08/2024 8:10 AM EST 06/08/2024 8:14 AM EST Melida Valdes MD POINT OF CARE TEST O NIKA Performing Organization Address [facility] Phone Number [facility] [place] [address] * POC, GLUCOSE (06/08/2024 4:09 AM EST) Glucometer, POC 151 65 - 199 mg/dL 06/08/2024 4:10 AM EST [facility] Comment:Supplemental ranges: <140 mg/dL before meals <180 mg/dL all other times of the day. Blood CAPILLARY BLOOD / Unknown 06/08/2024 4:09 AM EST 06/08/2024 4:10 AM EST Melida Valdes MD POINT OF CARE TEST O NIKA Performing Organization Address [facility] [address]/[facility] Co de Phone Number [facility] [place] [address] * Heparin (unfractionated) Level (06/08/2024 3:21 AM EST) UF Heparin 0.46 IU/mL 06/08/2024 3:41 AM EST [facility] Comment: Heparin (anti-Xa) levels should [...] MD HEMATOLOGY ORDERABLE S Performing Organization Address City/State/[facility] Co de Phone Number [facility] [place] [address] * (ABNORMAL) CBC (with Diff) (06/08/2024 3:21 AM EST) White Blood Cell 9.92(H) 4.00 - 9.50 x10(3)/mc L 06/08/2024 3:34 AM EST [facility] Red Blood Cell 5.09 4.58 - 5.54 x10(6)/mc L 06/08/2024 3:34 AM EST [facility] Hemoglobin 15.1 13.7 - 16.5 g/dL 06/08/2024 3:34 AM [facility] Hematocrit 46.7 40.5 - 48.5 % 06/08/2024 3:34 AM [facility] Mean Cell Volume 91.7 82.9 - 93.1 fL 06/08/2024 3:34 AM [facility] Mean Cell Hemoglobin 29.7 27.5 - 32.1 pg 06/08/2024 3:34 AM [facility] Mean Cell Hemoglobin Concentration 32.3 32.0 - 35.7 g/dL 06/08/2024 3:34 AM [facility] Platelet 203 145 - 357 x10(3)/mc L 06/08/2024 3:34 AM [facility] Mean Platelet Volume 9.4 7.6 - 12.9 fL 06/08/2024 3:34 AM [facility] RDW Standard Deviation 46.9(H) 36.0 - 45.0 fL 06/08/2024 3:34 AM [facility] RDW coefficient of variation 13.8 11.4 - 13.8 % 06/08/2024 3:34 AM [facility] NRBC% auto 0.0 % 06/08/2024 3:34 AM [facility] NRBC Absolute <0.01 <0.01 x10(3)/mc L 06/08/2024 3:34 AM [facility] Neutrophil % 56.8 % 06/08/2024 3:34 AM [facility] Neutrophil Absolute (ANC) - Automated 5.63 1.70 - 6.10 x10(3)/mc L 06/08/2024 3:34 AM [facility] Lymph % 27.3 % 06/08/2024 3:34 AM [facility] Lymph Absolute 2.71 0.90 - 3.20 x10(3)/mc L 06/08/2024 3:34 AM [facility] Monocyte % 11.2 % 06/08/2024 3:34 AM [facility] Monocyte Absolute 1.11(H) 0.30 - 0.90 x10(3)/mc L 06/08/2024 3:34 AM [facility] Eos % 3.4 % 06/08/2024 3:34 AM [facility] Eos Absolute 0.34 0.00 - 0.40 x10(3)/mc L 06/08/2024 3:34 AM [facility] Basophil % 0.8 % 06/08/2024 3:34 AM [facility] Baso Absolute 0.08 0.00 - 0.10 x10(3)/mc L 06/08/2024 3:34 AM EST [facility] Immature Gran % 0.5 % 3:34 AM [facility] Immature Gran Absolute 0.05(H) 0.00 - 0.04 x10(3)/mc L 06/08/2024 3:34 AM [facility] Blood VENOUS BLOOD SPECIMEN / Unknown Venipuncture / Unknown 06/08/2024 3:21 AM EST 06/08/2024 3:27 AM EST Shahnaz Scanlon MD HEMATOLOGY ORDERABLE S Performing Organization Address City/[facility] [address]/ZIP Co de Phone Number [facility] [place] [address] * Magnesium (06/08/2024 3:21 AM EST) Magnesium 0.84 0.69 - 1.07 mMol/L 06/08/2024 3:59 AM [facility] Blood VENOUS BLOOD SPECIMEN / Unknown Venipuncture / Unknown 06/08/2024 3:21 AM EST 06/08/2024 3:27 AM EST Shahnaz Scanlon MD CHEMISTRY ORDERABLES [facility] [place] [address] * (ABNORMAL) Basic Metabolic Panel (06/08/2024 3:21 AM EST) Glucose 173 65 - 199 mg/dL 06/08/2024 3:59 AM [facility] Comment:Glucose Concentratio n >=200 mg/dL plus symptoms is consistent with Diabetes Mellitus. Blood Urea Nitrogen 25(H) 10 - 20 mg/dL 06/08/2024 3:59 AM [facility] Creatinine 1.09 0.80 - 1.50 mg/dL 06/08/2024 3:59 AM [facility] Sodium 135 135 - 145 mMol/L 06/08/2024 3:59 AM [facility] Potassium 4.2 3.5 - 5.0 mMol/L 06/08/2024 3:59 AM [facility] Chloride 98 98 - 107 mMol/L 06/08/2024 3:59 AM [facility] Carbon Dioxide 25 22 - 31 mMol/L 06/08/2024 3:59 AM [facility] Anion Gap 12 5 - 15 mMol/L 06/08/2024 3:59 AM [facility] Calcium 9.4 8.5 - 10.5 mg/dL 06/08/2024 3:59 AM [facility] Est Glomerular Filtration Rate - Male 74 mL/min/1. 73 m?? 06/08/2024 3:59 AM [facility] Comment: This patient's estimated GFR was [...] AM EST Shahnaz Scanlon MD CHEMISTRY ORDERABLES [facility] [place] [address] * POC, GLUCOSE (06/07/2024 11:57 PM EST) Glucometer, POC 188 65 - 199 mg/dL 06/07/2024 11:57 PM EST [facility] Comment:Supplemental ranges: <140 mg/dL before meals <180 mg/dL all other times of the day. Blood CAPILLARY BLOOD / Unknown 06/07/2024 11:57 PM EST 06/07/2024 11:58 PM EST Melida Valdes MD POINT OF CARE TEST O NIKA Performing Organization Address City/[facility] [address]/ZIP Co de Phone Number [facility] [place] [address] * POC, GLUCOSE (06/07/2024 8:05 PM EST) Glucometer, POC 118 65 - 199 mg/dL 06/07/2024 8:06 PM EST [facility] Comment:Supplemental ranges: <140 mg/dL before meals <180 mg/dL all other times of the day. Blood CAPILLARY BLOOD / Unknown 06/07/2024 8:05 PM EST 06/07/2024 8:06 PM EST Melida Valdes MD POINT OF CARE TEST O NIKA Performing Organization Address [facility] [address]/[facility] Co de Phone Number [facility] [place] [address] * Potassium (06/07/2024 5:22 PM EST) Potassium 4.6 3.5 - 5.0 mMol/L 06/07/2024 5:59 PM EST [facility] Blood VENOUS BLOOD SPECIMEN / Unknown Venipuncture / Unknown 06/07/2024 5:22 PM EST 06/07/2024 5:26 PM EST Shahnaz Scanlon MD CHEMISTRY ORDERABLES Performing Organization Address City/[facility] [address]/ZIP Co de Phone Number [facility] [place] [address] * POC, GLUCOSE (06/07/2024 4:31 PM EST) Glucometer, POC 174 65 - 199 mg/dL 06/07/2024 4:34 PM EST [facility] Comment:Supplemental ranges: <140 mg/dL before meals <180 mg/dL all other times of the day. Blood CAPILLARY BLOOD / Unknown 06/07/2024 4:31 PM EST 06/07/2024 4:34 PM EST Melida Valdes MD POINT OF CARE TEST O RDERABLES [facility] [address] [place] [address] * MRI Cardiac Morphology Function wwo Contrast (06/07/2024 1:10 PM EST) WORKSTATION ID [id number] DH RAD Anatomical Region Laterality Modality Magnetic [...] - Mildly dilated left ventricle size with rginwwvj-zy-iyirdyzk decreased LV systolic function. ??LV ejection fraction [...] who have questions please contact the health youth care worker that requested your imaging first. ? Electronically signed by: Kriss Alonzo MD, [facility] ([phone]), at 06/07/2024 2:41 PM Narrative 06/07/2024 2:41 [...] VENTRICLE: Mildly dilated left ventricle size with buucfprl-rf-xzxxngqw decreased LV systolic function. ??LV ejection fraction [...] VENTRICLE: Mildly dilated left ventricle size with shflpxsr-cy-qcbbmjur decreasedLV systolic function. LV ejection fraction is [...] - Mildly dilated left ventricle size with vsxztuei-kj-dpfpolmz decreasedLV systolic function. LV ejection fraction is [...] patients who have questions please contactthe health youth care worker that requested your imaging first. Electronically signed by: Kriss Alonzo MD, [facility]([phone]), at 06/07/2024 2:41 PM Delroy Fofana MD IM MRI ORDERABLES * (ABNORMAL) POC, GLUCOSE (06/07/2024 11:05 AM EST) Glucometer, POC 221(H) 65 - 199 mg/dL 06/07/2024 11:06 AM EST [facility] Comment:Supplemental ranges: <140 mg/dL before meals <180 mg/dL all other times of the day. Blood CAPILLARY BLOOD / Unknown 06/07/2024 11:05 AM EST 06/07/2024 11:06 AM EST Melida Valdes MD POINT OF CARE TEST O RDERABLES [facility] [place] [address] * (ABNORMAL) POC, GLUCOSE (06/07/2024 11:03 AM EST) Glucometer, POC 250(H) 65 - 199 mg/dL 06/07/2024 11:04 AM EST [facility] Comment:Supplemental ranges: <140 mg/dL before meals <180 mg/dL all other times of the day. Blood CAPILLARY BLOOD / Unknown 06/07/2024 11:03 AM EST 06/07/2024 11:04 AM EST Melida Valdes MD POINT OF CARE TEST O RDERABLES [facility] [place] [address] * Potassium (06/07/2024 9:44 AM EST) Potassium 4.7 3.5 - 5.0 mMol/L 06/07/2024 10:23 AM EST [facility] Blood VENOUS BLOOD SPECIMEN / Unknown Venipuncture / Unknown 06/07/2024 9:44 AM EST 06/07/2024 9:57 AM EST Shahnaz Scanlon MD CHEMISTRY ORDERABLES [facility] [place] [address] * POC, GLUCOSE (06/07/2024 7:45 AM EST) Glucometer, POC 175 65 - 199 mg/dL 06/07/2024 7:45 AM EST [facility] Comment:Supplemental ranges: <140 mg/dL before meals <180 mg/dL all other times of the day. Blood CAPILLARY BLOOD / Unknown 06/07/2024 7:45 AM EST 06/07/2024 7:46 AM EST Melida Valdes MD POINT OF CARE TEST O RDERABLES [facility] [place] [address] * XR Chest PA & Lateral (Generic) (06/07/2024 7:03 AM EST) [facility] WORKSTATION ID [id number] RAD Anatomical Region Laterality Modality Chest N/A [...] who have questions please contact the health youth care worker that requested your imaging first. ? Electronically signed by: Stuart Aponte MD, [facility] ??([phone]), at 06/07/2024 10:45 AM Narrative 06/07/2024 10:45 [...] patients who have questions please contactthe health youth care worker that requested your imaging first. Electronically signed by: Stuart Aponte MD, [facility]([phone]), at 06/07/2024 10:45 AM Shahnaz Scanlon MD IMG DX ORDERABLES * POC, GLUCOSE (06/07/2024 4:25 AM EST) [facility] Signature Glucometer, POC 127 65 - 199 mg/dL 06/07/2024 4:26 AM EST [facility] Comment:Supplemental ranges: <140 mg/dL before meals <180 mg/dL all other times of the day. Blood CAPILLARY BLOOD / Unknown 06/07/2024 4:25 AM EST 06/07/2024 4:26 AM EST Melida Valdes MD POINT OF CARE TEST O RDERABLES Performing Organization Address [facility] [address]/ZIP Co de Phone Number [facility] [place] [address] * Heparin (unfractionated) Level (06/07/2024 2:41 AM EST) Pathologist [facility] [place] UF Heparin 0.45 IU/mL 06/07/2024 3:03 AM EST [facility] Comment: Heparin (anti-Xa) levels should [...] EST Shahnaz Scanlon MD HEMATOLOGY ORDERABLE S [facility] [place] [address] * (ABNORMAL) CBC (with Diff) (06/07/2024 2:41 AM EST) [facility] White Blood Cell 10.06(H) 4.00 - 9.50 x10(3)/mc L 06/07/2024 2:58 AM EST [facility] Red Blood Cell 5.02 4.58 - 5.54 x10(6)/mc L 06/07/2024 2:58 AM [facility] Hemoglobin 14.8 13.7 - 16.5 g/dL 06/07/2024 2:58 AM [facility] Hematocrit 46.2 40.5 - 48.5 % 06/07/2024 2:58 AM [facility] Mean Cell Volume 92.0 82.9 - 93.1 fL 06/07/2024 2:58 AM [facility] Mean Cell Hemoglobin 29.5 27.5 - 32.1 pg 06/07/2024 2:58 AM [facility] Mean Cell Hemoglobin Concentration 32.0 32.0 - 35.7 g/dL 06/07/2024 2:58 AM [facility] Platelet 202 145 - 357 x10(3)/mc L 06/07/2024 2:58 AM [facility] Mean Platelet Volume 9.6 7.6 - 12.9 fL 06/07/2024 2:58 AM [facility] RDW Standard Deviation 46.3(H) 36.0 - 45.0 fL 06/07/2024 2:58 AM [facility] RDW coefficient of variation 13.8 11.4 - 13.8 % 06/07/2024 2:58 AM [facility] NRBC% auto 0.0 % 06/07/2024 2:58 AM [facility] NRBC Absolute <0.01 <0.01 x10(3)/mc L 06/07/2024 2:58 AM [facility] Neutrophil % 55.9 % 06/07/2024 2:58 AM [facility] Neutrophil Absolute (ANC) - Automated 5.62 1.70 - 6.10 x10(3)/mc L 06/07/2024 2:58 AM [facility] Lymph % 28.3 % 06/07/2024 2:58 AM [facility] Lymph Absolute 2.85 0.90 - 3.20 x10(3)/mc L 06/07/2024 2:58 AM [facility] Monocyte % 10.8 % 06/07/2024 2:58 AM [facility] Monocyte Absolute 1.09(H) 0.30 - 0.90 x10(3)/mc L 06/07/2024 2:58 AM [facility] Eos % 3.6 % 06/07/2024 2:58 AM [facility] Eos Absolute 0.36 0.00 - 0.40 x10(3)/mc L 06/07/2024 2:58 AM [facility] Basophil % 0.8 % 06/07/2024 2:58 AM [facility] Baso Absolute 0.08 0.00 - 0.10 x10(3)/mc L 06/07/2024 2:58 AM [facility] Immature Gran % 0.6 % 2:58 AM [facility] Immature Gran Absolute 0.06(H) 0.00 - 0.04 x10(3)/mc L 06/07/2024 2:58 AM [facility] Blood VENOUS BLOOD SPECIMEN / Unknown Venipuncture / Unknown 06/07/2024 2:41 AM EST 06/07/2024 2:52 AM EST Shahnaz Scanlon MD HEMATOLOGY ORDERABLE S [facility] [place] [address] * Magnesium (06/07/2024 2:41 AM EST) Magnesium 0.92 0.69 - 1.07 mMol/L 06/07/2024 3:25 AM [facility] Blood VENOUS BLOOD SPECIMEN / Unknown Venipuncture / Unknown 06/07/2024 2:41 AM EST 06/07/2024 2:51 AM EST Shahnaz Scanlon MD CHEMISTRY ORDERABLES [facility] [place] [address] * (ABNORMAL) Basic Metabolic Panel (06/07/2024 2:41 AM EST) Glucose 140 65 - 199 mg/dL 06/07/2024 3:25 AM EST [facility] Comment:Glucose Concentratio n >=200 mg/dL plus symptoms is consistent with Diabetes Mellitus. Blood Urea Nitrogen 26(H) 10 - 20 mg/dL 06/07/2024 3:25 AM [facility] Creatinine 1.06 0.80 - 1.50 mg/dL 06/07/2024 3:25 AM [facility] Sodium 136 135 - 145 mMol/L 06/07/2024 3:25 AM [facility] Potassium 3.8 3.5 - 5.0 mMol/L 06/07/2024 3:25 AM [facility] Chloride 98 98 - 107 mMol/L 06/07/2024 3:25 AM [facility] Carbon Dioxide 28 22 - 31 mMol/L 06/07/2024 3:25 AM [facility] Anion Gap 10 5 - 15 mMol/L 06/07/2024 3:25 AM [facility] Calcium 9.4 8.5 - 10.5 mg/dL 06/07/2024 3:25 AM [facility] Est Glomerular Filtration Rate - Male 77 mL/min/1. 73 m?? 06/07/2024 3:25 AM [facility] Comment: This patient's estimated GFR was [...] Scanlon MD CHEMISTRY ORDERABLES Performing Organization Address City/[facility] [address]/ZIP Co de Phone Number [facility] [place] [address] * POC, GLUCOSE (06/07/2024 12:08 AM EST) Glucometer, POC 182 65 - 199 mg/dL 06/07/2024 12:09 AM EST [facility] Comment:Supplemental ranges: <140 mg/dL before meals <180 mg/dL all other times of the day. Blood CAPILLARY BLOOD / Unknown 06/07/2024 12:08 AM EST 06/07/2024 12:09 AM EST Melida Valdes MD POINT OF CARE TEST O NIKA Performing Organization Address [facility] [address]/[facility] Co de Phone Number [facility] [place] [address] * POC, GLUCOSE (06/06/2024 8:18 PM EST) Glucometer, POC 143 65 - 199 mg/dL 06/06/2024 8:19 PM EST [facility] Comment:Supplemental ranges: <140 mg/dL before meals <180 mg/dL all other times of the day. Blood CAPILLARY BLOOD / Unknown 06/06/2024 8:18 PM EST 06/06/2024 8:19 PM EST Melida Valdes MD POINT OF CARE TEST O RDERABLES Performing Organization Address City/[facility] [address]/ZIP Co de Phone Number [facility] [place] [address] * POC, GLUCOSE (06/06/2024 3:39 PM EST) Glucometer, POC 147 65 - 199 mg/dL 06/06/2024 3:40 PM EST [facility] Comment:Supplemental ranges: <140 mg/dL before meals <180 mg/dL all other times of the day. Blood CAPILLARY BLOOD / Unknown 06/06/2024 3:39 PM EST 06/06/2024 3:40 PM EST Melida Valdes MD POINT OF CARE TEST O NIKA [facility] [place] [address] * Potassium (06/06/2024 2:37 PM EST) Potassium 4.3 3.5 - 5.0 mMol/L 06/06/2024 3:01 PM EST [facility] Blood VENOUS BLOOD SPECIMEN / Unknown Venipuncture / Unknown 06/06/2024 2:37 PM EST 06/06/2024 2:42 PM EST Shahnaz Scanlon MD CHEMISTRY ORDERABLES Performing Organization Address [facility] [address]/[facility] Co de Phone Number [facility] [place] [address] * (ABNORMAL) POC, GLUCOSE (06/06/2024 1:39 PM EST) Glucometer, POC 317(H) 65 - 199 mg/dL 06/06/2024 1:40 PM EST [facility] Comment:Supplemental ranges: <140 mg/dL before meals <180 mg/dL all other times of the day. Blood CAPILLARY BLOOD / Unknown 06/06/2024 1:39 PM EST 06/06/2024 1:41 PM EST Melida Valdes MD POINT OF CARE TEST O NIKA Performing Organization Address City/[facility] [address]/ZIP Co de Phone Number [facility] [place] [address] * (ABNORMAL) POC, GLUCOSE (06/06/2024 11:34 AM EST) Glucometer, POC 264(H) 65 - 199 mg/dL 06/06/2024 11:35 AM EST [facility] Comment:Supplemental ranges: <140 mg/dL before meals <180 mg/dL all other times of the day. Blood CAPILLARY BLOOD / Unknown 06/06/2024 11:34 AM EST 06/06/2024 11:35 AM EST Melida Valdes MD POINT OF CARE TEST O RDBECKIE Performing Organization Address City/[facility] [address]/ZIP Co de Phone Number [facility] [place] [address] * Potassium (06/06/2024 10:17 AM EST) Potassium 4.3 3.5 - 5.0 mMol/L 06/06/2024 10:46 AM EST [facility] Blood VENOUS BLOOD SPECIMEN / Unknown Venipuncture / Unknown 06/06/2024 10:17 AM EST 06/06/2024 10:22 AM EST Shahnaz Scanlon MD CHEMISTRY ORDERABLES Performing Organization Address [facility] [address]/[facility] Co de Phone Number [facility] [place] [address] * POC, GLUCOSE (06/06/2024 7:57 AM EST) Glucometer, POC 195 65 - 199 mg/dL 06/06/2024 8:03 AM EST [facility] Comment:Supplemental ranges: <140 mg/dL before meals <180 mg/dL all other times of the day. Blood CAPILLARY BLOOD / Unknown 06/06/2024 7:57 AM EST 06/06/2024 8:03 AM EST Melida Valdes MD POINT OF CARE TEST O RDERAPIETER Performing Organization Address City/[facility] [address]/ZIP Co de Phone Number [facility] [place] [address] * POC, GLUCOSE (06/06/2024 6:53 AM EST) Glucometer, POC 187 65 - 199 mg/dL 06/06/2024 6:53 AM EST [facility] Comment:Supplemental ranges: <140 mg/dL before meals <180 mg/dL all other times of the day. Blood CAPILLARY BLOOD / Unknown 06/06/2024 6:53 AM EST 06/06/2024 6:54 AM EST Melida Valdes MD POINT OF CARE TEST O RDERABLES Performing Organization Address [facility] [address]/ZIP Co de Phone Number [facility] [place] [address] * (ABNORMAL) Hemoglobin A1c (06/06/2024 3:33 AM EST) [facility] Hemoglobin A1c 7.1(H) 4.3 - 5.6 % 06/06/2024 1:01 PM EST [facility] Comment: Per ADA guidelines, without [...] red blood cell turnover may not be chain sales representative of glycemic control. Reference Interval: 4.3 - 5.6% 5.7 - 6.4%: Consistent with prediabetes >=6.5%: Consistent with diagnosis of diabetes mellitus Estimated Average Glucose 157 mg/dL 06/06/2024 1:01 PM EST [facility] Blood VENOUS BLOOD SPECIMEN / Unknown Venipuncture / Unknown 06/06/2024 3:33 AM EST 06/06/2024 3:48 AM EST Alejandra Baumann APRN CHEMISTRY ORDERAB LES Performing Organization Address City/[facility] [address]/ZIP Co de Phone Number [facility] [place] [address] * Heparin (unfractionated) Level (06/06/2024 3:33 AM EST) Pathologist [facility] [place] UF Heparin 0.36 IU/mL 06/06/2024 3:59 AM EST [facility] Comment: Heparin (anti-Xa) levels should [...] EST Shahnaz Scanlon MD HEMATOLOGY ORDERABLE S [facility] [place] [address] * (ABNORMAL) CBC (with Diff) (06/06/2024 3:33 AM EST) Pathologist [facility] [place] White Blood Cell 9.81(H) 4.00 - 9.50 x10(3)/mc L 06/06/2024 3:54 AM EST [facility] Red Blood Cell 4.91 4.58 - 5.54 x10(6)/mc L 06/06/2024 3:54 AM EST [facility] Hemoglobin 14.6 13.7 - 16.5 g/dL 06/06/2024 3:54 AM EST [facility] Hematocrit 45.4 40.5 - 48.5 % 06/06/2024 3:54 AM [facility] Mean Cell Volume 92.5 82.9 - 93.1 fL 06/06/2024 3:54 AM [facility] Mean Cell Hemoglobin 29.7 27.5 - 32.1 pg 06/06/2024 3:54 AM [facility] Mean Cell Hemoglobin Concentration 32.2 32.0 - 35.7 g/dL 06/06/2024 3:54 AM [facility] Platelet 199 145 - 357 x10(3)/mc L 06/06/2024 3:54 AM [facility] Mean Platelet Volume 9.5 7.6 - 12.9 fL 06/06/2024 3:54 AM [facility] RDW Standard Deviation 47.2(H) 36.0 - 45.0 fL 06/06/2024 3:54 AM [facility] RDW coefficient of variation 13.9(H) 11.4 - 13.8 % 06/06/2024 3:54 AM [facility] NRBC% auto 0.0 % 06/06/2024 3:54 AM [facility] NRBC Absolute <0.01 <0.01 x10(3)/mc L 06/06/2024 3:54 AM [facility] Neutrophil % 56.8 % 06/06/2024 3:54 AM [facility] Neutrophil Absolute (ANC) - Automated 5.57 1.70 - 6.10 x10(3)/mc L 06/06/2024 3:54 AM [facility] Lymph % 27.6 % 06/06/2024 3:54 AM [facility] Lymph Absolute 2.71 0.90 - 3.20 x10(3)/mc L 06/06/2024 3:54 AM [facility] Monocyte % 11.1 % 06/06/2024 3:54 AM [facility] Monocyte Absolute 1.09(H) 0.30 - 0.90 x10(3)/mc L 06/06/2024 3:54 AM EST [facility] Eos % 3.0 % 06/06/2024 3:54 AM EST [facility] Eos Absolute 0.29 0.00 - 0.40 x10(3)/mc L 06/06/2024 3:54 AM EST [facility] Basophil % 0.9 % 06/06/2024 3:54 AM [facility] Baso Absolute 0.09 0.00 - 0.10 x10(3)/mc L 06/06/2024 3:54 AM [facility] Immature Gran % 0.6 % 3:54 AM [facility] Immature Gran Absolute 0.06(H) 0.00 - 0.04 x10(3)/mc L 06/06/2024 3:54 AM [facility] Blood VENOUS BLOOD SPECIMEN / Unknown Venipuncture / Unknown 06/06/2024 3:33 AM EST 06/06/2024 3:48 AM EST Shahnaz Scanlon MD HEMATOLOGY ORDERABLE S [facility] [place] [address] * Magnesium (06/06/2024 3:33 AM EST) [facility] Magnesium 0.92 0.69 - 1.07 mMol/L 06/06/2024 4:17 AM EST [facility] Blood VENOUS BLOOD SPECIMEN / Unknown Venipuncture / Unknown 06/06/2024 3:33 AM EST 06/06/2024 3:47 AM EST Shahnaz Scanlon MD CHEMISTRY ORDERABLES [facility] [place] [address] * (ABNORMAL) Basic Metabolic Panel (06/06/2024 3:33 AM EST) Glucose 190 65 - 199 mg/dL 06/06/2024 4:17 AM [facility] Comment:Glucose Concentratio n >=200 mg/dL plus symptoms is consistent with Diabetes Mellitus. Blood Urea Nitrogen 27(H) 10 - 20 mg/dL 06/06/2024 4:17 AM [facility] Creatinine 1.12 0.80 - 1.50 mg/dL 06/06/2024 4:17 AM [facility] Sodium 136 135 - 145 mMol/L 06/06/2024 4:17 AM [facility] Potassium 4.0 3.5 - 5.0 mMol/L 06/06/2024 4:17 AM [facility] Chloride 97(L) 98 - 107 mMol/L 06/06/2024 4:17 AM [facility] Carbon Dioxide 26 22 - 31 mMol/L 06/06/2024 4:17 AM [facility] Anion Gap 13 5 - 15 mMol/L 06/06/2024 4:17 AM [facility] Calcium 9.1 8.5 - 10.5 mg/dL 06/06/2024 4:17 AM [facility] Est Glomerular Filtration Rate - Male 72 mL/min/1. 73 m?? 06/06/2024 4:17 AM [facility] Comment: This patient's estimated GFR was [...] AM EST Shahnaz Scanlon MD CHEMISTRY ORDERABLES [facility] [place] [address] * (ABNORMAL) POC, GLUCOSE (06/05/2024 10:31 PM EDT) Glucometer, POC 238(H) 65 - 199 mg/dL 06/05/2024 10:31 PM EDT [facility] Comment:Supplemental ranges: <140 mg/dL before meals <180 mg/dL all other times of the day. Blood CAPILLARY BLOOD / Unknown 06/05/2024 10:31 PM EDT 06/05/2024 10:31 PM EDT Melida Valdes MD POINT OF CARE TEST O RDERABLES Performing Organization Address City/[facility] [address]/ZIP Co de Phone Number [facility] [place] [address] * (ABNORMAL) POC, GLUCOSE (06/05/2024 4:22 PM EDT) Glucometer, POC 205(H) 65 - 199 mg/dL 06/05/2024 4:22 PM EDT [facility] Comment:Supplemental ranges: <140 mg/dL before meals <180 mg/dL all other times of the day. Blood CAPILLARY BLOOD / Unknown 06/05/2024 4:22 PM EDT 06/05/2024 4:23 PM EDT Melida Valdes MD POINT OF CARE TEST O RDERABLES [facility] [place] [address] * (ABNORMAL) POC, GLUCOSE (06/05/2024 11:34 AM EDT) Glucometer, POC 211(H) 65 - 199 mg/dL 06/05/2024 11:34 AM EDT [facility] Comment:Supplemental ranges: <140 mg/dL before meals <180 mg/dL all other times of the day. Blood CAPILLARY BLOOD / Unknown 06/05/2024 11:34 AM EDT 06/05/2024 11:34 AM EDT Melida Valdes MD POINT OF CARE TEST O RDERABLES Performing Organization Address City/[facility] [address]/ZIP Co de Phone Number [facility] [place] [address] * Potassium (06/05/2024 9:04 AM EDT) Potassium 4.3 3.5 - 5.0 mMol/L 06/05/2024 9:50 AM EDT [facility] Blood VENOUS BLOOD SPECIMEN / Unknown Venipuncture / Unknown 06/05/2024 9:04 AM EDT 06/05/2024 9:21 AM EDT Shahnaz Scanlon MD CHEMISTRY ORDERABLES Performing Organization Address [facility] [address]/[facility] Co de Phone Number [facility] [place] [address] * POC, GLUCOSE (06/05/2024 7:27 AM EDT) Glucometer, POC 166 65 - 199 mg/dL 06/05/2024 7:27 AM EDT [facility] Comment:Supplemental ranges: <140 mg/dL before meals <180 mg/dL all other times of the day. Blood CAPILLARY BLOOD / Unknown 06/05/2024 7:27 AM EDT 06/05/2024 7:27 AM EDT Melida Valdes MD POINT OF CARE TEST O RDBECKIE Performing Organization Address City/[facility] [address]/ZIP Co de Phone Number [facility] [place] [address] * Heparin (unfractionated) Level (06/05/2024 3:44 AM EDT) UF Heparin 0.44 IU/mL 06/05/2024 4:07 AM EDT [facility] Comment: Heparin (anti-Xa) levels should [...] EDT Shahnaz Scanlon MD HEMATOLOGY ORDERABLE S [facility] [place] [address] * (ABNORMAL) CBC (with Diff) (06/05/2024 3:44 AM EDT) White Blood Cell 10.83(H) 4.00 - 9.50 x10(3)/mc L 06/05/2024 3:56 AM EDT [facility] Red Blood Cell 5.07 4.58 - 5.54 x10(6)/mc L 06/05/2024 3:56 AM EDT [facility] Hemoglobin 15.3 13.7 - 16.5 g/dL 06/05/2024 3:56 AM EDT [facility] Hematocrit 46.8 40.5 - 48.5 % 06/05/2024 3:56 AM EDT [facility] Mean Cell Volume 92.3 82.9 - 93.1 fL 06/05/2024 3:56 AM [facility] Mean Cell Hemoglobin 30.2 27.5 - 32.1 pg 06/05/2024 3:56 AM [facility] Mean Cell Hemoglobin Concentration 32.7 32.0 - 35.7 g/dL 06/05/2024 3:56 AM [facility] Platelet 219 145 - 357 x10(3)/mc L 06/05/2024 3:56 AM [facility] Mean Platelet Volume 9.4 7.6 - 12.9 fL 06/05/2024 3:56 AM [facility] RDW Standard Deviation 46.7(H) 36.0 - 45.0 fL 06/05/2024 3:56 AM [facility] RDW coefficient of variation 13.9(H) 11.4 - 13.8 % 06/05/2024 3:56 AM [facility] NRBC% auto 0.0 % 06/05/2024 3:56 AM [facility] NRBC Absolute <0.01 <0.01 x10(3)/mc L 06/05/2024 3:56 AM [facility] Neutrophil % 61.5 % 06/05/2024 3:56 AM [facility] Neutrophil Absolute (ANC) - Automated 6.65(H) 1.70 - 6.10 x10(3)/mc L 06/05/2024 3:56 AM [facility] Lymph % 24.0 % 06/05/2024 3:56 AM [facility] Lymph Absolute 2.60 0.90 - 3.20 x10(3)/mc L 06/05/2024 3:56 AM [facility] Monocyte % 10.9 % 06/05/2024 3:56 AM [facility] Monocyte Absolute 1.18(H) 0.30 - 0.90 x10(3)/mc L 06/05/2024 3:56 AM EDT [facility] Eos % 2.2 % 06/05/2024 3:56 AM EDT [facility] Eos Absolute 0.24 0.00 - 0.40 x10(3)/mc L 06/05/2024 3:56 AM EDT [facility] Basophil % 0.8 % 06/05/2024 3:56 AM EDT [facility] Baso Absolute 0.09 0.00 - 0.10 x10(3)/mc L 06/05/2024 3:56 AM EDT [facility] Immature Gran % 0.6 % 3:56 AM EDT [facility] Immature Gran Absolute 0.07(H) 0.00 - 0.04 x10(3)/mc L 06/05/2024 3:56 AM EDT [facility] Blood VENOUS BLOOD SPECIMEN / Unknown Venipuncture / Unknown 06/05/2024 3:44 AM EDT 06/05/2024 3:50 AM EDT Shahnaz Scanlon MD HEMATOLOGY ORDERABLE S [facility] [place] [address] * Magnesium (06/05/2024 3:44 AM EDT) [facility] Magnesium 0.92 0.69 - 1.07 mMol/L 06/05/2024 4:20 AM EDT [facility] Blood VENOUS BLOOD SPECIMEN / Unknown Venipuncture / Unknown 06/05/2024 3:44 AM EDT 06/05/2024 3:50 AM EDT Shahnaz Scanlon MD CHEMISTRY ORDERABLES [facility] [place] [address] * (ABNORMAL) Basic Metabolic Panel (06/05/2024 3:44 AM EDT) Glucose 155 65 - 199 mg/dL 06/05/2024 4:20 AM [facility] Comment:Glucose Concentratio n >=200 mg/dL plus symptoms is consistent with Diabetes Mellitus. Blood Urea Nitrogen 25(H) 10 - 20 mg/dL 06/05/2024 4:20 AM [facility] Creatinine 1.16 0.80 - 1.50 mg/dL 06/05/2024 4:20 AM [facility] Sodium 136 135 - 145 mMol/L 06/05/2024 4:20 AM [facility] Potassium 3.9 3.5 - 5.0 mMol/L 06/05/2024 4:20 AM [facility] Chloride 95(L) 98 - 107 mMol/L 06/05/2024 4:20 AM [facility] Carbon Dioxide 29 22 - 31 mMol/L 06/05/2024 4:20 AM [facility] Anion Gap 12 5 - 15 mMol/L 06/05/2024 4:20 AM [facility] Calcium 9.2 8.5 - 10.5 mg/dL 06/05/2024 4:20 AM [facility] Est Glomerular Filtration Rate - Male 69 mL/min/1. 73 m?? 06/05/2024 4:20 AM [facility] Comment: This patient's estimated GFR was [...] Scanlon MD CHEMISTRY ORDERABLES Performing Organization Address [facility] [address]/ZIP Co de Phone Number [facility] [place] [address] * Potassium (06/04/2024 10:34 PM EDT) Potassium 3.7 3.5 - 5.0 mMol/L 06/04/2024 11:03 PM EDT [facility] Blood VENOUS BLOOD SPECIMEN / Unknown Venipuncture / Unknown 06/04/2024 10:34 PM EDT 06/04/2024 10:39 PM EDT Shahnaz Scanlon MD CHEMISTRY ORDERABLES Performing Organization Address [facility] [address]/[facility] Co de Phone Number [facility] [place] [address] * POC, GLUCOSE (06/04/2024 7:43 PM EDT) Glucometer, POC 175 65 - 199 mg/dL 06/04/2024 7:43 PM EDT [facility] Comment:Supplemental ranges: <140 mg/dL before meals <180 mg/dL all other times of the day. Blood CAPILLARY BLOOD / Unknown 06/04/2024 7:43 PM EDT 06/04/2024 7:43 PM EDT Melida Valdes MD POINT OF CARE TEST O RDERABLES Performing Organization Address City/[facility] [address]/ZIP Co de Phone Number [facility] [place] [address] * Potassium (06/04/2024 4:35 PM EDT) Potassium 4.0 3.5 - 5.0 mMol/L 06/04/2024 5:32 PM EDT [facility] Blood VENOUS BLOOD SPECIMEN / Unknown Venipuncture / Unknown 06/04/2024 4:35 PM EDT 06/04/2024 4:40 PM EDT Shahnaz Scanlon MD CHEMISTRY ORDERABLES Performing Organization Address [facility] [address]/ZIP Co de Phone Number [facility] [place] [address] * POC, GLUCOSE (06/04/2024 3:26 PM EDT) Glucometer, POC 154 65 - 199 mg/dL 06/04/2024 3:26 PM EDT [facility] Comment:Supplemental ranges: <140 mg/dL before meals <180 mg/dL all other times of the day. Blood CAPILLARY BLOOD / Unknown 06/04/2024 3:26 PM EDT 06/04/2024 3:27 PM EDT Melida Valdes MD POINT OF CARE TEST O RDERABLES Performing Organization Address [facility] [address]/[facility] Co de Phone Number [facility] [place] [address] * POC, GLUCOSE (06/04/2024 11:09 AM EDT) Glucometer, POC 188 65 - 199 mg/dL 06/04/2024 11:09 AM EDT [facility] Comment:Supplemental ranges: <140 mg/dL before meals <180 mg/dL all other times of the day. Blood CAPILLARY BLOOD / Unknown 06/04/2024 11:09 AM EDT 06/04/2024 11:09 AM EDT Delroy Fofana MD POINT OF CARE TEST ORDERABLES Performing Organization Address [facility] [address]/[facility] Co de Phone Number [facility] [place] [address] * Heparin (unfractionated) Level (06/04/2024 10:41 AM EDT) UF Heparin 0.43 IU/mL 06/04/2024 11:06 AM EDT [facility] Comment: Heparin (anti-Xa) levels should [...] MD HEMATOLOGY ORDERABLE S Performing Organization Address City/[facility] [address]/ZIP Co de Phone Number [facility] [place] [address] * Potassium (06/04/2024 10:41 AM EDT) [facility] Potassium 4.0 3.5 - 5.0 mMol/L 06/04/2024 11:11 AM EDT [facility] Blood VENOUS BLOOD SPECIMEN / Unknown Venipuncture / Unknown 06/04/2024 10:41 AM EDT 06/04/2024 10:46 AM EDT Shahnaz Scanlon MD CHEMISTRY ORDERABLES Performing Organization Address City/[facility] [address]/ZIP Co de Phone Number [facility] [place] [address] * POC, GLUCOSE (06/04/2024 7:11 AM EDT) Glucometer, POC 182 65 - 199 mg/dL 06/04/2024 7:12 AM EDT [facility] Comment:Supplemental ranges: <140 mg/dL before meals <180 mg/dL all other times of the day. Blood CAPILLARY BLOOD / Unknown 06/04/2024 7:11 AM EDT 06/04/2024 7:12 AM EDT Delroy Fofana MD POINT OF CARE TEST ORDERABLES Performing Organization Address [facility] [address]/[facility] Co de Phone Number [facility] [place] [address] * Heparin (unfractionated) Level (06/04/2024 4:38 AM EDT) UF Heparin 0.41 IU/mL 06/04/2024 5:19 AM EDT [facility] Comment: Heparin (anti-Xa) levels should [...] MD HEMATOLOGY ORDERABLE S Performing Organization Address [facility] [address]/ZIP Co de Phone Number [facility] [place] [address] * (ABNORMAL) CBC (with Diff) (06/04/2024 4:38 AM EDT) White Blood Cell 11.45(H) 4.00 - 9.50 x10(3)/mc L 06/04/2024 5:12 AM [facility] Red Blood Cell 5.35 4.58 - 5.54 x10(6)/mc L 06/04/2024 5:12 AM [facility] Hemoglobin 16.0 13.7 - 16.5 g/dL 06/04/2024 5:12 AM [facility] Hematocrit 49.6(H) 40.5 - 48.5 % 06/04/2024 5:12 AM [facility] Mean Cell Volume 92.7 82.9 - 93.1 fL 06/04/2024 5:12 AM [facility] Mean Cell Hemoglobin 29.9 27.5 - 32.1 pg 06/04/2024 5:12 AM [facility] Mean Cell Hemoglobin Concentration 32.3 32.0 - 35.7 g/dL 06/04/2024 5:12 AM [facility] Platelet 222 145 - 357 x10(3)/mc L 06/04/2024 5:12 AM [facility] Mean Platelet Volume 9.5 7.6 - 12.9 fL 06/04/2024 5:12 AM [facility] RDW Standard Deviation 47.6(H) 36.0 - 45.0 fL 06/04/2024 5:12 AM [facility] RDW coefficient of variation 14.1(H) 11.4 - 13.8 % 06/04/2024 5:12 AM [facility] NRBC% auto 0.0 % 06/04/2024 5:12 AM [facility] NRBC Absolute <0.01 <0.01 x10(3)/mc L 06/04/2024 5:12 AM [facility] Neutrophil % 60.3 % 06/04/2024 5:12 AM [facility] Neutrophil Absolute (ANC) - Automated 6.91(H) 1.70 - 6.10 x10(3)/mc L 06/04/2024 5:12 AM EDT [facility] Lymph % 25.1 % 06/04/2024 5:12 AM EDT [facility] Lymph Absolute 2.87 0.90 - 3.20 x10(3)/mc L 06/04/2024 5:12 AM EDT [facility] Monocyte % 10.6 % 06/04/2024 5:12 AM EDT [facility] Monocyte Absolute 1.21(H) 0.30 - 0.90 x10(3)/mc L 06/04/2024 5:12 AM EDT [facility] Eos % 2.8 % 06/04/2024 5:12 AM EDT [facility] Eos Absolute 0.32 0.00 - 0.40 x10(3)/mc L 06/04/2024 5:12 AM EDT [facility] Basophil % 0.7 % 06/04/2024 5:12 AM EDT [facility] Baso Absolute 0.08 0.00 - 0.10 x10(3)/mc L 06/04/2024 5:12 AM EDT [facility] Immature Gran % 0.5 % 5:12 AM EDT [facility] Immature Gran Absolute 0.06(H) 0.00 - 0.04 x10(3)/mc L 06/04/2024 5:12 AM EDT [facility] Blood VENOUS BLOOD SPECIMEN / Unknown Venipuncture / Unknown 06/04/2024 4:38 AM EDT 06/04/2024 5:07 AM EDT Shahnaz Scanlon MD HEMATOLOGY ORDERABLE S [facility] [place] [address] * Magnesium (06/04/2024 4:38 AM EDT) Magnesium 0.84 0.69 - 1.07 mMol/L 06/04/2024 5:35 AM EDT [facility] Blood VENOUS BLOOD SPECIMEN / Unknown Venipuncture / Unknown 06/04/2024 4:38 AM EDT 06/04/2024 5:07 AM EDT Shahnaz Scanlon MD CHEMISTRY ORDERABLES [facility] [place] [address] * (ABNORMAL) Basic Metabolic Panel (06/04/2024 4:38 AM EDT) Glucose 118 65 - 199 mg/dL 06/04/2024 5:35 AM EDT [facility] Comment:Glucose Concentratio n >=200 mg/dL plus symptoms is consistent with Diabetes Mellitus. Blood Urea Nitrogen 22(H) 10 - 20 mg/dL 06/04/2024 5:35 AM EDT [facility] Creatinine 1.22 0.80 - 1.50 mg/dL 06/04/2024 5:35 AM EDT [facility] Sodium 137 135 - 145 mMol/L 06/04/2024 5:35 AM EDT [facility] Potassium 3.6 3.5 - 5.0 mMol/L 06/04/2024 5:35 AM [facility] Chloride 97(L) 98 - 107 mMol/L 06/04/2024 5:35 AM EDT [facility] Carbon Dioxide 29 22 - 31 mMol/L 06/04/2024 5:35 AM EDT [facility] Anion Gap 11 5 - 15 mMol/L 06/04/2024 5:35 AM EDT [facility] Calcium 9.0 8.5 - 10.5 mg/dL 06/04[facility]24 [facility] Glomerular Filtration Rate - Male 65 mL/min/1. 73 m?? 06/04/2024 5:35 AM EDT [facility] Comment: This patient's estimated GFR [...] AM EDT Shahnaz Scanlon MD CHEMISTRY ORDERABLES [facility] [place] [address] * Heparin (unfractionated) Level (06/03/2024 8:58 PM EDT) UF Heparin 0.27 IU/mL 06/03/2024 9:33 PM EDT [facility] Comment: Heparin (anti-Xa) levels should [...] EDT Shahnaz Scanlon MD HEMATOLOGY ORDERABLE S [facility] [place] [address] * POC, GLUCOSE (06/03/2024 8:05 PM EDT) Glucometer, POC 136 65 - 199 mg/dL 06/03/2024 8:05 PM EDT [facility] Comment:Supplemental ranges: <140 mg/dL before meals <180 mg/dL all other times of the day. Blood CAPILLARY BLOOD / Unknown 06/03/2024 8:05 PM EDT 06/03/2024 8:05 PM EDT Delroy Fofana MD POINT OF CARE TEST ORDERABLES Performing Organization Address City/[facility] [address]/ZIP Co de Phone Number [facility] [place] [address] * POC, GLUCOSE (06/03/2024 5:48 PM EDT) Glucometer, POC 191 65 - 199 mg/dL 06/03/2024 5:48 PM EDT [facility] Comment:Supplemental ranges: <140 mg/dL before meals <180 mg/dL all other times of the day. Blood CAPILLARY BLOOD / Unknown 06/03/2024 5:48 PM EDT 06/03/2024 5:49 PM EDT Delroy Fofana MD POINT OF CARE TEST ORDERABLES [facility] [place] [address] * CT Chest wo Contrast (Generic) (06/03/2024 4:33 PM EDT) WORKSTATION ID [id number] RAD Anatomical Region Laterality Modality Chest Computed Tomogra phy Impressions 06/03/2024 4:47 PM EDT Cardiomegaly. Biventricular ICD leads in place. Thank you for letting us participate in the care of this patient. ??If you are a health care provider and have any questions regarding this report, please contact the number below. ??For patients who have questions please contact the health youth care worker that requested your imaging first. ? Electronically signed by: Stuart Aponte MD, [facility] ??([phone]), at 06/03/2024 4:47 PM Narrative 06/03/2024 4:47 [...] patients who have questions please contactthe health youth care worker that requested your imaging first. Electronically signed by: Stuart Aponte MD, [facility]([phone]), at 06/03/2024 4:47 PM Bobby Loja MD IMG CT ORDERABLES * Carotid Duplex, Bilateral (06/03/2024 2:19 PM EDT) VB Text Report Department: Vascular Surgery Lab Patient: [id number] (GEORGE MEHTA) CPT: 01240 Referring Physician: BOBBY LOJA ?? Phone: Indications: [...] Loja MD VASCULAR ORDERABLES Performing Organization Address City/[facility] [address]/[facility] Co de Phone Number [id number] * Heparin (unfractionated) Level (06/03/2024 12:48 PM EDT) UF Heparin 0.15 IU/mL 06/03/2024 1:13 PM EDT [facility] Comment: Heparin (anti-Xa) levels should [...] MD HEMATOLOGY ORDERABLE S Performing Organization Address City/[facility] [address]/ZIP Co de Phone Number [facility] [place] [address] * POC, GLUCOSE (06/03/2024 11:14 AM EDT) Glucometer, POC 166 65 - 199 mg/dL 06/03/2024 11:14 AM EDT [facility] Comment:Supplemental ranges: <140 mg/dL before meals <180 mg/dL all other times of the day. Blood CAPILLARY BLOOD / Unknown 06/03/2024 11:14 AM EDT 06/03/2024 11:14 AM EDT Delroy Fofana MD POINT OF CARE TEST ORDERABLES [facility] [place] [address] * (ABNORMAL) Troponin-T, High Sensitivity 3 Hour (06/03/2024 10:06 AM EDT) Troponin-T, High Sensitivity 266(H) <=22 ng/L 06/03/2024 10:50 AM EDT [facility] Comment: This patient's troponin T [...] troponin value can be found in the [facility] Test Catalog Troponin - [email or web address]/catalogs/565/files/[email or web address] Reference: Fourth [place] Definition of Myocardial Infarction. Journal of the [place] [employer] 2018;72:3112-5687 Troponin-T, HS 3 hr delta 06/03/2024 10:50 AM EDT [facility] Comment:Delta troponin value not calculated, sample collected outside of delta calculation time limit. Blood VENOUS BLOOD SPECIMEN / Unknown IP Care Team Draw / Unknown 06/03/2024 10:06 AM EDT 06/03/2024 10:15 AM EDT Delroy Fofana MD CHEMISTRY ORDERABLE S [facility] [place] [address] * ECHO COMPLETE W CONTRAST (06/03/2024 8:46 AM EDT) Anatomical Region Laterality Modality Cardiac Other 06/03/2024 6:52 AM EDT Narrative 06/03/2024 10:32 AM EDT [address] [place] [id number] ? Echocardiogram Report Name: GEORGE MEHTA Raad ?Study Date: 06/03/2024 06:52 AM : 1955 ? Height: 168 cm ? Account: [id number] Age: 69 yrs ? Weight: 102 kg Gender: Male ?BSA: 2.1 m2 Ordering Physician: SHAHNAZ SCANLON Referring Physician: NEHAL QUINTERO Performed By: Sara Kebeed RDCS Reason For Study: STEMI Exam Location: [facility]. Interpretation Summary -Left ventricular systolic function is [...] fellow performed study of today's date). Procedure Complete-[id number]. Image enhancement Optison was used for left [...] ?large Aneurysmal ?15-16 ?? diffuse Procedure Note Jonnei Jordan MD - 06/03/[address] [place] [address] Echocardiogram Report Name: GEORGE MEHTA Study Date: 406:52 AM : 1955 Height: 168 cm Account: [id number] Age: 69 yrs Weight: 102 kg Gender: Male BSA: 2.1 m2 Ordering Physician: SHAHNAZ SCANLON Referring Physician: NEHAL QUINTERO Performed By: Sara Kebede RDCS Reason For Study: STEMI Exam Location: [facility]. Interpretation Summary -Left ventricular systolic function is [...] a fellow performed study of's date). Procedure Complete-20212. Image enhancement Optison was used for left [...] 289(H) <=22 ng/L 06/03/2024 9:26 AM EDT [facility] Comment: This patient's troponin T [...] troponin value can be found in the [facility] Test Catalog Troponin - [email or web address] Reference: Fourth [place] Definition of Myocardial Infarction. Journal of the [place] [employer] 2018;72:7798-5996 Troponin-T, HS 1 hr delta 5 ng/L 06/03/2024 9:26 AM EDT [facility] Comment:The 1 hour Troponin T delta value is the absolute difference between the Troponin T concentrations of the initial and subsequent sample collected between 45 - 120 minutes following the initial collection. Blood VENOUS BLOOD SPECIMEN / Unknown IP Care Team Draw / Unknown 06/03/2024 8:27 AM EDT 06/03/2024 8:37 AM EDT Delroy Fofana MD CHEMISTRY ORDERABLE S [facility] [place] [address] * POC, GLUCOSE (06/03/2024 7:54 AM EDT) [facility] Signature Glucometer, POC 195 65 - 199 mg/dL 06/03/2024 7:55 AM EDT [facility] Comment:Supplemental ranges: <140 mg/dL before meals <180 mg/dL all other times of the day. Blood CAPILLARY BLOOD / Unknown 06/03/2024 7:54 AM EDT 06/03/2024 7:55 AM EDT Nuha Rojo MD POINT OF CARE TEST ORDERABLES [facility] [place] [address] * (ABNORMAL) Troponin-T, High Sensitivity (06/03/2024 7:39 AM EDT) Troponin-T, High Sensitivity Initial 284(H) <=22 ng/L 06/03/2024 8:29 AM EDT [facility] Comment: This patient's troponin T [...] troponin value can be found in the [facility] Test Catalog Troponin - [email or web address] Reference: Fourth [place] Definition of Myocardial Infarction. Journal of the [employer] 2018;72:2219-9789 Blood VENOUS BLOOD SPECIMEN / Unknown Care Team Draw / Unknown 06/03/2024 7:39 AM EDT 06/03/2024 7:48 AM EDT Delroy Fofana MD CHEMISTRY ORDERABLE S [facility] [place] [address] * (ABNORMAL) Troponin-T, High Sensitivity 3 Hour (06/03/2024 5:11 AM EDT) Troponin-T, High Sensitivity 254(H) <=22 ng/L 06/03/2024 5:49 AM EDT [facility] Comment: This patient's troponin T [...] troponin value can be found in the [facility] Test Catalog Troponin - https://[email or web address]/catalogs/565/files/45368 Reference: [place] Definition of Myocardial Infarction. Journal of the [employer] 2018;72:8801-7410 Troponin-T, HS 3 hr delta 46 ng/L 06/03/2024 5:49 AM EDT [facility] Comment:The 3 hour Troponin T delta value is the absolute difference between the Troponin T concentrations of the initial and subsequent sample collected between 2 h: 45 min and 6 h following the initial collection Blood VENOUS BLOOD SPECIMEN / Unknown IP Care Team Draw / Unknown 06/03/2024 5:11 AM EDT 06/03/2024 5:20 AM EDT Shahnaz Scanlon MD CHEMISTRY ORDERABLES [facility] [place] [address] * (ABNORMAL) Troponin-T, High Sensitivity 1 Hour (06/03/2024 3:07 AM EDT) Troponin-T, High Sensitivity 218(H) <=22 ng/L 06/03/2024 3:39 AM EDT [facility] Comment: This patient's troponin T [...] troponin value can be found in the [facility] Test Catalog Troponin - https://[email or web address]/catalogs/565/files/66974 Reference: Fourth [place] Definition of Myocardial Infarction. Journal of the [employer] 2018;72:9953-8558 Troponin-T, HS 1 hr delta 10 ng/L 06/03/2024 3:39 AM EDT [facility] Comment:The 1 hour Troponin T delta value is the absolute difference between the Troponin T concentrations of the initial and subsequent sample collected between 45 - 120 minutes following the initial collection. Blood VENOUS BLOOD SPECIMEN / Unknown IP Care Team Draw / Unknown 06/03/2024 3:07 AM EDT 06/03/2024 3:12 AM EDT Shahnaz Scanlon MD [place] [address] * XR Chest One View (06/03/2024 2:41 AM EDT) WORKSTATION ID [id number] RAD Anatomical Region Laterality Modality Chest N/A Digital Radiogra phy Impressions 06/03/2024 3:06 AM EDT No radiographically evident acute cardiopulmonary process. Thank you for letting us participate in the care of this patient. ??If you are a health care provider and have any questions regarding this report, please contact the number below. ??For patients who have questions please contact the health youth care worker that requested your imaging first. ? Narrative [...] patients who have questions please contactthe health youth care worker that requested your imaging first. Electronically signed by: Corazon Mauro MD, [facility]([phone]), at 06/03/2024 3:06 AM Shahnaz Scanlon MD IMG DX ORDERABLES * Heparin (unfractionated) Level (06/03/2024 2:13 AM EDT) UF Heparin 0.56 IU/mL 06/03/2024 4:13 AM EDT [facility] Comment: Heparin (anti-Xa) levels should [...] MD HEMATOLOGY ORDERABLE S Performing Organization Address City/[facility] [address]/ZIP Co de Phone Number [facility] [place] [address] * (ABNORMAL) Troponin-T, High Sensitivity (06/03/2024 2:13 AM EDT) Troponin-T, High Sensitivity Initial 208(H) <=22 ng/L 06/03/2024 3:02 AM EDT [facility] Comment: This patient's troponin T concentration was determined using the [employer] 5th Generation troponin T assay. The 99th [...] troponin value can be found in the [facility] Test Catalog Troponin - https://[email or web address]/catalogs/565/files/66811 Reference: Fourth [place] Definition of Myocardial Infarction. Journal of the [employer] 2018;72:9342-7390 Blood VENOUS BLOOD SPECIMEN / Unknown IP Care Team Draw / Unknown 06/03/2024 2:13 AM EDT 06/03/2024 2:32 AM EDT Shahnaz Scanlon MD CHEMISTRY ORDERABLES Performing Organization Address City/[facility] [address]/ZIP Co de Phone Number [facility] [place] [address] * Magnesium (06/03/2024 2:13 AM EDT) Magnesium 0.86 0.69 - 1.07 mMol/L 06/03/2024 3:02 AM EDT [facility] Blood VENOUS BLOOD SPECIMEN / Unknown IP Care Team Draw / Unknown 06/03/2024 2:13 AM EDT 06/03/2024 2:32 AM EDT Shahnaz Scanlon MD CHEMISTRY ORDERABLES [facility] [place] [address] * Basic Metabolic Panel (06/03/2024 2:13 AM EDT) Glucose 126 65 - 199 mg/dL 06/03/2024 3:02 AM EDT [facility] Comment:Glucose Concentratio n >=200 mg/dL plus symptoms is consistent with Diabetes Mellitus. Blood Urea Nitrogen 20 10 - 20 mg/dL [facility]24 [facility] Creatinine 1.13 0.80 - 1.50 mg/dL 06/03/2024 3:02 AM [facility] Sodium 139 135 - 145 mMol/L 06/03/2024 3:02 AM [facility] Potassium 4.2 3.5 - 5.0 mMol/L 06/03/2024 3:02 AM [facility] Chloride 101 98 - 107 mMol/L 06/03/2024 [facility] Carbon Dioxide 26 22 - 31 mMol/L 06/03/2024 [facility] Anion Gap 12 5 - 15 mMol/L 06/03/2024 3:02 AM [facility] Calcium 9.8 8.5 - 10.5 mg/dL 06/03/2024 [facility] Est Glomerular Filtration Rate - Male 71 mL/min/1. 73 m?? 06/03/2024 3:02 AM EDT [facility] Comment: This patient's estimated GFR [...] AM EDT Shahnaz Scanlon MD CHEMISTRY ORDERABLES [facility] [place] [address] * (ABNORMAL) CBC (with Diff) (06/03/2024 2:13 AM EDT) White Blood Cell 11.16(H) 4.00 - 9.50 x10(3)/mc L 06/03/2024 2:37 AM EDT [facility] Red Blood Cell 5.09 4.58 - 5.54 x10(6)/mc L 06/03/2024 2:37 AM EDT [facility] Hemoglobin 15.0 13.7 - 16.5 g/dL 06/03/2024 2:37 AM EDT [facility] Hematocrit 47.4 40.5 - 48.5 % 06/03/2024 2:37 AM EDT [facility] Mean Cell Volume 93.1 82.9 - 93.1 fL 06/03/2024 2:37 AM EDT [facility] Mean Cell Hemoglobin 29.5 27.5 - 32.1 pg 06/03/2024 2:37 AM EDT [facility] Mean Cell Hemoglobin Concentration 31.6(L) 32.0 - 35.7 g/dL 06/03/2024 2:37 AM [facility] Platelet 217 145 - 357 x10(3)/mc L 06/03/2024 2:37 AM [facility] Mean Platelet Volume 9.5 7.6 - 12.9 fL 06/03/2024 2:37 AM [facility] RDW Standard Deviation 49.0(H) 36.0 - 45.0 fL 06/03/2024 2:37 AM [facility] RDW coefficient of variation 14.1(H) 11.4 - 13.8 % 06/03/2024 2:37 AM [facility] NRBC% auto 0.0 % 06/03/2024 2:37 AM [facility] NRBC Absolute <0.01 <0.01 x10(3)/mc L 06/03/2024 2:37 AM [facility] Neutrophil % 58.4 % 06/03/2024 2:37 AM [facility] Neutrophil Absolute (ANC) - Automated 6.51(H) 1.70 - 6.10 x10(3)/mc L 06/03/2024 2:37 AM [facility] Lymph % 29.9 % 06/03/2024 2:37 AM [facility] Lymph Absolute 3.34(H) 0.90 - 3.20 x10(3)/mc L 06/03/2024 2:37 AM [facility] Monocyte % 8.1 % 06/03/2024 2:37 AM [facility] Monocyte Absolute 0.90 0.30 - 0.90 x10(3)/mc L 06/03/2024 2:37 AM [facility] Eos % 2.4 % 06/03/2024 2:37 AM [facility] Eos Absolute 0.27 0.00 - 0.40 x10(3)/mc L 06/03/2024 2:37 AM EDT [facility] Basophil % 0.8 % 06/03/2024 2:37 AM EDT [facility] Baso Absolute 0.09 0.00 - 0.10 x10(3)/mc L 06/03/2024 2:37 AM EDT [facility] Immature Gran % 0.4 % 2:37 AM EDT [facility] Immature Gran Absolute 0.05(H) 0.00 - 0.04 x10(3)/mc L 06/03/2024 2:37 AM EDT [facility] Blood VENOUS BLOOD SPECIMEN / Unknown IP Care Team Draw / Unknown 06/03/2024 2:13 AM EDT 06/03/2024 2:31 AM EDT Shahnaz Scanlon MD HEMATOLOGY ORDERABLE S Performing Organization Address City/State/[facility] Co de Phone Number [facility] [place] [address] * Lipid Panel (Reflex Direct LDL) (06/03/2024 2:13 AM EDT) Cholesterol, Total 76 mg/dL 06/03/2024 3:02 AM [facility] Comment: Desirable: < 200 mg/dL Borderline High: 200 - 239 mg/dL High: > or = 240 mg/dL Triglyceride 75 mg/dL 06/03/2024 3:02 AM EDT [facility] Comment: Normal: <150 mg/dL Borderline High: 150-199 mg/dL High: 200-499 mg/dL Very High: > or =500 mg/dL HDL Cholesterol 39 mg/dL [facility] Comment:Males: High Risk: <4 0 mg/dL LDL Cholesterol 21 mg/dL [facility] Comment: Desirable: <100 mg/dL Above Desirable: 100-129 mg/dL Borderline High: 130-159 mg/dL High: 160-189 mg/dL Very High: > or =190 mg/dL Note: LDL calculation updated to the NIH LDL formula as of 03/07/2024 Non-HDL Cholesterol 37 mg/dL 06/03/2024 3:02 AM EDT [facility] Comment: Desirable: <130 mg/dL Above Desirable: 130-159 mg/dL Borderline High: 160-189 mg/dL High: 190-219 mg/dL Very High: > or = 220 mg/dL Blood VENOUS BLOOD SPECIMEN / Unknown IP Care Team Draw / Unknown 06/03/2024 2:13 AM EDT 06/03/2024 2:[address] [facility] - 06/03/2024 3:02 AM EDT It [...] ACC/AHA Guidelines (most recently Bruce et al. [facility] 05/07/22): * For individuals with atherosclerotic cardiovascular [...] Scanlon MD CHEMISTRY ORDERABLES Performing Organization Address [facility] [address] [facility] Co de Phone Number [facility] [place] [address] * (ABNORMAL) APTT (06/03/2024 2:13 AM EDT) Partial Thromboplastin Time 105(HHH) 25 - 37 sec 06/03/2024 4:13 AM EDT [facility] Comment: The PTT is NOT [...] MD HEMATOLOGY ORDERABLE S Performing Organization Address [facility] [address]/ZIP Co de Phone Number [facility] [place] [address] * Prothrombin Time (06/03/2024 2:13 AM EDT) Prothrombin Time 11.5 9.4 - 12.5 sec 06/03/2024 4:13 AM EDT [facility] International Normalization Ratio 1.0 <=4.9 06/03/2024 4:13 AM EDT [facility] Comment: An INR < 2.0 [...] EDT Shahnaz Scanlon MD HEMATOLOGY ORDERABLE S [facility] [place] [address] * Hepatic Function Panel (06/03/2024 2:13 AM EDT) Albumin 3.8 3.2 - 5.2 g/dL 06/03/2024 3:02 AM EDT [facility] Aspartate Aminotransferase 20 <=39 unit/L 06/03/2024 3:02 AM EDT [facility] Alanine Aminotransferase 12 0 - 55 unit/L 06/03/2024 3:02 AM EDT [facility] Alkaline Phosphatase 76 40 - 130 unit/L 06/03/2024 3:02 AM EDT [facility] Bilirubin, Total 0.4 <=1.3 mg/dL 06/03/2024 3:02 AM EDT [facility] Bilirubin, Direct <0.2 0.0 - 0.3 mg/dL 06/03/2024 3:02 AM EDT [facility] Protein, Total 7.0 6.1 - 8.0 g/dL 06/03/2024 3:02 AM EDT [facility] Blood VENOUS BLOOD SPECIMEN / Unknown IP Care Team Draw / Unknown 06/03/2024 2:13 AM EDT 06/03/2024 2:32 AM EDT Shahnaz Scanlon MD CHEMISTRY ORDERABLES Performing Organization Address [facility] [address]/ZIP Co de Phone Number [facility] [place] [address] * (ABNORMAL) pro-Brain Natriuretic Peptide (06/03/2024 2:13 AM EDT) NT-proBNP 1,628(H) <=124 pg/mL 06/03/2024 4:15 AM EDT [facility] Blood VENOUS BLOOD SPECIMEN / Unknown IP Care Team Draw / Unknown 06/03/2024 2:13 AM EDT 06/03/2024 2:32 AM EDT Shahnaz Scanlon MD CHEMISTRY ORDERABLES Performing Organization Address [facility] [address]/[facility] Co de Phone Number [facility] [place] [address] * Phosphorus (06/03/2024 2:13 AM EDT) Phosphorus 4.4 2.5 - 4.5 mg/dL 06/03/2024 3:02 AM EDT [facility] Blood VENOUS BLOOD SPECIMEN / Unknown IP Care Team Draw / Unknown 06/03/2024 2:13 AM EDT 06/03/2024 2:32 AM EDT Shahnaz Scanlon MD CHEMISTRY ORDERABLES Performing Organization Address City/[facility] [address]/ZIP Co de Phone Number [facility] [place] [address] * EKG 12 Lead (06/03/2024 1:45 AM EDT) Ventricular rate 63 BPM MUSE SYSTEM Atrial Rate 63 BPM MUSE SYSTEM P-R Interval 168 ms MUSE SYSTEM QRS Duration 96 ms MUSE SYSTEM Q-T Interval 400 ms MUSE SYSTEM QTC Calculated (Bezet) 409 ms MUSE SYSTEM Calculated P [place] 65 degrees MUSE SYSTEM Calculated R [place] 70 degrees MUSE SYSTEM Calculated T [place] -86 degrees MUSE SYSTEM INTERPRETATION Atrial-sensed ventricular-paced rhythm Abnormal ECG No previous ECGs available I personally reviewed the tracing and edited the fellows interpretation Confirmed by fellow Sunni Agudelo ([id number]) on 06/04/2024 3:55:40 PM Confirmed by MD Tamia, Stuart Perry ([id number]) on 06/05/2024 11:46:48 AM MUSE SYSTEM 06/03/2024 1:45 AM EDT 06/05/2024 11:46 AM EDT Shahnaz Scanlon MD ECG ORDERABLES MUSE SYSTEM * CARDIAC CATHETERIZATION (06/03/2024 12:42 AM EDT) Anatomical Region Laterality Modality Other Narrative 06/04/2024 2:22 PM EDT ?[facility] ? Cardiac Catheterization/Intervention Report ? Patient Name: Tyson, George L. ? Procedure Date: 06/02/2024 ? A #: [id number] ? Primary Physician: Nuha Shen I ? Case #: [id number] ? File Name: [id number] ? Catheterization Order Number: [id number] ? [facility] ? Final Report [place], [place] ? Patient Name: ? George L. Tyson ? ID#: ?[id number] ? : ?1955 ? Procedure Date: ? June 02, 2024 ? Case #: ? [id number] ? Room: ? 5 ? Case Physician: [...] was designated as ASA Class IV. The [facility] clinical frailty ?scale is 5: Mildly Frail. ? Diagnostic Tests: ?Electrocardiography: ? EKG was assessed by ECG. EKG was Abnormal. EKG showed ST Deviation ? >= 0.5 mm. ?Medications Prior to Procedure: ? Sacubitril and Valsartan, Aspirin, Beta Erik, Statin and ? Thrombolytic (any). ? Indications for Diagnostic Cath: ?The priority of the diagnostic procedure was Emergent. 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 ??Imaging was [...] 3.5 guiding catheter and a 3.5 Fr [facility] [place] 20 Mhz using ?Manual pullback. ??Imaging was [...] Procedure Note Nuha Shen MD - 07/20/2024 [facility] Cardiac Catheterization/Intervention Report Patient Name: George Mehta Procedure Date: 06/02/2024 A #: [id number] Primary Physician: Nuha Shen I Case #: [id number] File Name: [id number] Catheterization Order Number: [id number] [facility] FinalReport [place], [place] Patient Name: George Mehta ID#:[id number] :1955 Procedure Date: June 02, 2024 Case [...] was designated as ASA Class IV. The [facility] clinicalfrailty scale is 5: Mildly Frail. Diagnostic Tests: Electrocardiography: EKG was assessed by ECG. EKG was Abnormal. EKG showed STDeviation >= 0.5 mm. Medications Prior to Procedure: Sacubitril and Valsartan, Aspirin, Beta Erik, Statin and Thrombolytic (any). Indications for Diagnostic Cath: The priority of the diagnostic procedure was Emergent. Theindication for the tin can laborer visit is ACS less than or equal [...] units of heparin were administered. A total [id number] of Omnipaque were opened, 84cc of Omnipaque were administered rod40uw of Omnipaque were wasted. Radiation: Fluoro time [...] 3.5 guiding catheter and a 3.5 Fr [facility] 20 Mhz usingManual pullback. Imaging was successful. [...] 3.5 guiding catheter and a 3.5 Fr [facility] [place] 20 Mhzusing Manual pullback. Imaging was successful. Indication: IVUS performed for pre intervention planning. Findings Pre-Intervention: scattered plaque, calcification and [id number] degrees calcification. Findings Post-Intervention: Stent not imaged [...] - 199 mg/dL 06/02/2024 11:31 PM EDT [facility] Comment:Supplemental ranges: <140 mg/dL before meals <180 mg/dL all other times of the day. Blood CAPILLARY BLOOD / Unknown 06/02/2024 11:31 PM EDT 06/02/2024 11:31 PM EDT Nuha Rojo MD POINT OF CARE TEST ORDERABLES Performing Organization Address City/State/[facility] Co de Phone Number [facility] [place] [phone] documented in this encounter Visit Diagnoses Not on filedocumented in this encounter Admitting Diagnoses Diagnosis STEMI (ST elevation myocardial infarction) Acute myocardial infarction, unspecified site, episode of care unspecified documented in this encounter Administered Medications Inactive Administered Medications - up to 3 most recent administrations Medication Order MAR Action Action Date Dose Rate Site acetaminophen (Tylenol) tablet 975 mg 975 mg, [...] 12:02 AM EST 975 mg albumin (human) 25% 50 mL intravenous solution CONTINUOUS PRN, Starting on Fri06/14/24 at 1057, Until Fri06/14/24 at 1413, Intra-Operative (Intra-Procedure), Routine New Bag 06/14/2024 10:57 AM EST 12.5 g aspirin chewable tablet 81 mg 81 mg, Oral, DAILY, First dose on Fri06/14/24 at 1500, Until Discontinued, Routine Given 06/21/2024 8:37 AM EST 81 mg Given 06/20/2024 8:12 AM EST 81 mg Given 06/19/2024 8:23 AM EST 81 mg atorvastatin (Lipitor) tablet 80 mg 80 mg, Oral, EVERY EVENING, First dose on Fri06/03/24 at 0130, Until Discontinued, Routine Given 06/20/2024 5:4 4 PM EST 80 mg Given 06/19/2024 5:54 PM EST 80 mg Given 06/18/2024 6:15 PM EST 80 mg calcium chloride 10% (100 mg/mL) injection PRN, Starting on Fri06/14/24 at 1117, Until Fri06/14/24 at 1413, Intra-Operative (Intra-Procedure), Routine Given 06/14/2024 11:38 AM EST 0.5 g Given 06/14/2024 11:17 AM EST 0.5 g carvediloL (Coreg) tablet 12.5 mg 12.5 mg, Oral, 2 TIMES DAILY WITH MEALS, First dose (after last modification) on Fri06/18/24 at 0800, Until Discontinued, Routine Given 06/21/2024 8:37 AM EST 12.5 mg Given 06/20/2024 5:44 PM EST 12.5 mg Given 06/20/2024 8:12 AM EST 12.5 mg clopidogreL (Plavix) tablet 75 mg 75 mg, Oral, DAILY, First dose on Fri06/15/24 at 0900, Until Discontinued, Routine Given 06/21/2024 8:37 AM EST 75 mg Given 06/20/2024 8:12 AM EST 75 mg Given 06/19/2024 8:23 AM EST 75 mg dextrose 50% intravenous solution 25 g 25 [...] next dose. Warning Vesicant/Irritant Medication , Routine electrolyte replacement solution (pH 7.4) (Normosol-R, Plasmalyte-A) infusion CONTINUOUS PRN, Starting on Fri06/14/24 at 0826, Until Fri06/14/24 at 1413, Intra-Operative (Intra-Procedure) New Bag 06/14/2024 8:26 AM EST 2 L empagliflozin (Jardiance) tablet 25 mg 25 mg, [...] 20 mg, Oral, DAILY, First dose on 06/03/24 at 0900, Until Discontinued, Routine Given 06/21/2024 8:38 AM EST 20 mg Given 06/20/2024 8:12 AM EST 20 mg Given 06/19/2024 8:24 AM EST 20 mg furosemide (Lasix) tablet 60 mg 60 mg, Oral, DAILY, First dose on 06/20/24 at 1000, Until Discontinued, Routine Given 06/21/2024 8:37 AM EST 60 mg Given 06/20/2024 9:45 AM EST 60 mg glucagon (Glucagen) (1 mg/mL) injection solution 1 [...] 06/20/2024 5:44 PM EST 600 mg heparin (porcine) (1,000 units/mL) injection PRN, Starting on Fri06/14/24 at 0827, Until Fri06/14/24 at 1413, Intra-Operative (Intra-Procedure), Routine Given 06/14/2024 10:54 AM EST 5,000 Units Given 06/14/2024 8:27 AM EST 5,000 Units insulin glargine-ygfn (Semglee) (100 unit/mL) subcutaneous injection vial 30 Units 30 Units, Subcutaneous, DAILY, First dose (after last modification) on 06/21/24 at 0900, Until Discontinued, Routine Given 06/21/2024 8:41 AM EST 30 Unit s insulin lispro (HumaLOG;Admelog) (100 unit/mL) subcutaneous injection [...] Given 06/20/2024 12:06 PM EST 3 Units ipratropium-albuteroL (Duoneb) 0.5 mg-3 mg(2.5 mg base)/3 [...] PM EST 1 patch 11- Chest (Left) lidocaine (pf) (Xylocaine) (20 mg/mL) 2% injection syringe PRN, Starting on Fri06/14/24 at 1138, Until Fri06/14/24 at 1413, Intra-Operative (Intra-Procedure), Routine Given 06/14/2024 11:[address] 100 mg magnesium hydroxide (Milk of Magnesia) (80mg/mL) oral liquid 2,400 mg 2,400 mg (30 mL), Oral, DAILY, First dose on Fri06/16/24 at 0900, Until Discontinued, Post-op day 2. Do not use with renal insufficiency., Routine Given 06/20/2024 8:12 AM EST 2,400 mg Given 06/18/2024 8:44 AM EST 2,400 mg Given 06/17/2024 8:46 AM EST 2,400 mg magnesium sulfate (4 mEq/mL) (50 %) injection PRN, Starting on Fri06/14/24 at 1138, Until Fri06/14/24 at 1413, Intra-Operative (Intra-Procedure), Routine Given 06/14/2024 11:38 AM EST 2 g mannitoL (Osmitrol) 20 % infusion CONTINUOUS PRN, Starting on Fri06/14/24 at 1045, Until Fri06/14/24 at 1413, Intra-Operative (Intra-Procedure) New Bag 06/14/2024 10:45 AM EST 40 g oxyCODONE (Roxicodone) tablet 10 mg 10 mg, Oral, EVERY 4 HOURS PRN, Starting on Fri06/16/24 at 1814, Until Fri06/21/24 at 1534, Pain, severe pain (7-10), If multiple routes of administration ordered, oral route first line., Routine Given 06/17/2024 12:08 AM EST 10 mg Given 06/16/2024 7:25 PM EST 10 mg oxyCODONE (Roxicodone) tablet 5 mg 5 [...] 2100, Last dose on Fri06/23/24 at 0900, [employer] Rep recommended duration is 3 days., Routine Given 06/20/2024 8:44 PM EST 2 s prays pantoprazole EC (Protonix) tablet 40 mg 40 mg, Oral, DAILY, First dose on Fri06/14/24 at 1500, Until Discontinued, DO NOT CRUSH OR OPEN If unable to take PO, may give IV, Routine Given 06/21/2024 8:37 AM EST 40 mg Given 06/20/2024 8:13 AM EST 40 mg Given 06/19/2024 8:23 AM EST 40 mg papaverine (30 mg/mL) injection Administer over 2 Minutes, PRN, Starting on Fri06/14/24 at 0859, Until Fri06/14/24 at 1413, Intra-Operative (Intra-Procedure), Routine Given 06/14/2024 8:59 AM EST 60 mg 19- Surgical Site sacubitriL-valsartan (Entresto) 49-51 mg per tablet 1 tablet 1 tablet, Oral, 2 TIMES DAILY, First dose on Fri06/17/24 at 0900, Until Discontinued, Routine, Is this a continuation of home medication? Yes Given 06/21/2024 8:37 AM EST 1 tablet Given 06/20/2024 8:42 PM EST 1 tablet [...] 06/17/2024 8:02 PM EST 2 tablets sodium bicarbonate 8.4 % (1 meq/ml) IV solution PRN, Starting on Fri06/14/24 at 1046, Until Fri06/14/24 at 1413, Intra-Operative (Intra-Procedure), Routine Given 06/14/2024 11:33 AM EST 50 mEq Given 06/14/2024 11:17 AM EST 50 mEq Given 06/14/2024 10:46 AM EST 50 mEq sodium chloride (Mckinley) 0.65 % nasal spray 1 spray 1 [...] Given 06/20/2024 5:31 AM EST 5 mLs vancomycin (Vancocin) injection PRN, Starting on Fri06/14/24 at 0858, Until Fri06/14/24 at 1413, Intra-Operative (Intra-Procedure), Routine Given 06/14/2024 8:58 AM EST 4 g 19- Surgical Site documented in this encounter Active and Recently [...] Lane RN) 0812 (Given - Provider: Michelle Orozco, JAMIE) 0837 (Given - Provider: Shazia Mcdonald, JAMIE) atorvastatin (Lipitor) tablet 80 mg 80 mg, Oral, EVERY EVENING, First dose on Fri06/03/24 at 0130, Until Discontinued, Routine 1754 (Given - Provider: Mary Lou Lane RN) 1744 (Given - Provider: Michelle Orozco RN) carvediloL (Coreg) tablet 12.5 mg 12.5 mg, Oral, 2 TIMES DAILY WITH MEALS, First dose (after last modification) on Fri06/18/24 at 0800, Until Discontinued, Routine 0825 (Given - Provider: Mary Lou Lane RN)1754 (Given - Provider: Mary Lou Lane RN) 0812 (Given - Provider: Michelle Orozco RN)1744 (Given - Provider: Michelle Orozco RN) 0837 (Given - Provider: Shazia Mcdonald RN) clopidogreL (Plavix) tablet 75 mg 75 mg, Oral, DAILY, First dose on Fri06/15/24 at 0900, Until Discontinued, Routine 0823 (Given - Provider: [...] RN)1800 (Given - Provider: Mary Lou Lane RN)2021 (Given - Provider: Christina Myers RN) 0821 (Given - Provider: Michelle Orozco RN)1206 (Given - Provider: Michelle Orozco RN)1750 (Given - Provider: Michelle Orozco, JAMIE)2042 (Given - Provider: Christina Myers RN) 0841 (Given - Provider: Shazia Mcdonald, JAMIE)1300 (Due) escitalopram (Lexapro) tablet 20 mg 20 mg, Oral, DAILY, First dose on Fri06/03/24 at 0900, Until Discontinued, Routine 0824 (Given - Provider: Mary Lou Lane RN) 0812 (Given - Provider: Michelle Orozco RN) 0838 (Given - Provider: Shazia Mcdonald, JAMIE) furosemide (Lasix) (10 mg/mL) injection 40 mg (CANCELED) 40 mg, Intravenous, 2 TIMES DAILY, First dose on Fri06/17/24 at 0900, Until Discontinued 0832 (Given - Provider: Mary Lou Lane RN)1755 (Given - Provider: Mary Lou Lane RN) 0813 (Given - Provider: Michelle Orozco RN) furosemide (Lasix) tablet 60 mg 60 mg, Oral, DAILY, First dose on 06/20/24 at 1000, Until Discontinued, Routine 0945 (Given - Provider: Michelle Orozco RN) 0837 (Given - Provider: Shazia Mcdonald, JAMIE) guaiFENesin ER (Mucinex) tablet 600 mg 600 [...] on Fri06/21/24 at 0900, Until Discontinued, Routine 0841 (Given - Provider: Shazia Mcdonald, JAMIE) insulin glargine-ygfn (Semglee) (100 unit/mL) subcutaneous injection [...] Comment: 49 CHO)1250 (Given - Provider: Michelle Orozco RN - Comment: CHO 35)1747 (Given - Provider: Michelle Orozco RN - Comment: CHO 35) 0800 (Not Given - Provider: Shazia Mcdonald RN - Reason: Patient/family refused)1200 (Due) insulin lispro [...] (Patch Applied - Provider: Christina Myers RN) 818 (Patch Removed - Provider: Michelle Orozco RN)08 (Patch Applied - Provider: Michelle Orozco, JAMIE)2019 (Patch Removed - Provider: Christina Myers RN) 08 (Patch Applied - Provider: Shazia Mcdonald RN)130 (Due: Patch Removed - Provider: Automatic Discharge Provider - Comment: Time automatically adjusted from order being discontinued) magnesium hydroxide (Milk of Magnesia) (80mg/mL) oral liquid 2,400 mg 2,400 mg (30 mL), Oral, DAILY, First dose on Fri06/16/24 at 0900, Until Discontinued, Post-op day 2. Do not use with renal insufficiency., Routine 899 (Not Given - Provider: Mary Lou Lane RN - Reason: Patient/family refused) 08 (Given - Provider: Michelle Orozco RN) 0900 (Not Given - Provider: Shazia Mcdonald RN - Reason: Patient/family refused) oxymetazoline (Afrin) 0.05 % nasal spray 2 spray 2 spray, Each Nare, 2 TIMES DAILY, 6 doses, First dose on Fri06/20/24 at 2100, Last dose on Fri06/23/24 at 0900, [employer] recommended duration is 3 days., Routine 2043 (Given - Provider: Christina Myers RN) 0900 (Not Given - Provider: Shazia Mcdonald RN - Reason: Patient/family refused) pantoprazole EC (Protonix) tablet 40 mg(Linked Group 4) 40 mg, Oral, DAILY, First dose on Fri06/14/24 at 1500, Until Discontinued, DO NOT CRUSH OR OPEN If unable to take PO, may give IV, Routine 822 (Given - Provider: Mary Lou Lane RN) 812 (Given - Provider: Michelle Orozco, JAMIE) 836 (Given - Provider: Shazia Mcdonald, JAMIE) potassium chloride ER (Klor-Con M) crystal tablet [...] 06 (Given - Provider: Christina Myers RN) sacubitriL-valsartan (Entresto) 49-51 mg per tablet 1 tablet 1 tablet, Oral, 2 TIMES DAILY, First dose on Miguelina 06/17/24 at 0900, Until Discontinued, Routine, Is this a continuation of home medication? Yes 822 (Given - Provider: Mary Lou Lane RN - Comment: bp 125/65)2015 (Given - Provider: Christina Myers RN - Comment: 117/75) 812 (Given - Provider: Michelle Orozco, JAMIE)2041 (Given - Provider: Christina Myers RN - Comment: 93/72) 836 (Given - Provider: Shazia Mcdonald, JAMIE) senna-docusate [...] See comment)1505 (Given - Provider: Mary Lou Lane, JAMIE)2230 (Not Given - Provider: Christina Myers RN [...] 10 mg, Rectal, DAILY PRN, Starting on Fri06/17/24 at 0000, Until Fri06/21/24 at 1534, Constipation, [...] oral route first line., Routine sodium chloride (Mckinley) 0.65 % nasal spray 1 spray 1 spray, Each Nare, 2 TIMES DAILY PRN, Starting on Fri06/20/24 at 1737, Until Fri06/21/24 at 1534, Congestion, Routine 2041 (Given - Provider: Christina Myers RN) Linked [...] 6 hours upon arrival to Unit. Give MD if unable to take PO, Routine Group [...] Routine documented in this encounter Care Teams Mat Inspector Relationship Specialty Start Date End Date Mauro Berumen MD [address] [place] [address] PCP - General Family Medicine 06/02/24 documented as of this encounter
--- OUTSIDE RECORDS SUMMARY | 2024-08-04 20:34 | XMS_ITS | Encounter Summary ---
Author Organization [facility] Address [facility] [place] [address] Care Team Providers Care Nozzle Tender Name Role Phone Mauro Berumen MD Primary Care Provider [phone] Encounter Details Date Type Department Care Team (Late st Contact Info) Description 06/08/2024 Ophth Exam [place] [address] Yumiko De La Torre, COT Social History Tobacco Use Types Packs/Day Years Used Date Smoking Tobacco: Every Day Cigarettes Smokeless Tobacco: Never [facility] Utilities Answer Date Recorded In the [...] any time in the past 12 m [facility], were you homeless or living in a half-way (including now)? No 06/03/2024 DH IPV Inpatient [...] on filedocumented in this encounter Care Teams Nozzle Tender Relationship Specialty Start Date End Date Mauro Berumen MD [address] [place] [address] PCP - General Family Medicine 06/02/24 documented as of this encounter
--- OUTSIDE RECORDS SUMMARY | 2024-08-04 20:34 | XMS_ITS | Encounter Summary ---
Author Organization [facility] Address [facility] [place] [address] Care Team Providers Care Customizer Name Role Phone Mauro Berumen MD Primary Care Provider [phone] Encounter Details Date Type Department Care Team (Late st Contact Info) Description 06/03/2024 Orders Only Cardiology [facility] [place] [id number] Unknown None Social History Tobacco Use Types Packs/Day Years Used Date Smoking Tobacco: Every Day Cigarettes Smokeless Tobacco: Never [facility] Utilities Answer Date Recorded In the past 12 months has th e electric, gas, oil, or water [employer] threatened to shut off services in your [...] any time in the past 12 m [facility], were you homeless or living in a fci (including now)? No 06/03/2024 DH IPV Inpatient [...] Procedure Name Priority Date/Time Associated Diagnosis Comments ECHOCARDIOGRAM TRANSTHORACIC Routine 06/03/2024 2:23 AM EDT documented in this encounter Results * Echocardiogram Transthoracic (06/03/2024 2:23 AM EDT) Anatomical Region Laterality Modality Cardiac Other 06/03/2024 2:23 AM EDT Narrative 06/03/2024 10:32 AM EDT [address] [place] [address] ? Echocardiogram Report Name: ARTURO NICHOLS ?Study Date: 06/03/2024 02:23 AM : 1955 Age: 69 yrs Gender: Male Performed By: Sascha Silva MD Reason For Study: STEMI Interpreting Fellow: Sascha Silva. Interpretation Summary Limited echo performed by fellow bone puller to assess LV function. Left ventricle is mild to moderately dilated. Left ventricular ejection fraction is estimated visually at 25%. There is global dyskinesia with mid-basilar posterior-posterolateral akinesis. Right ventricle is not well seen. RV systolic function is probably normal. There is no prior echo for comparison. Procedure Limited - 81693. Suboptimal quality. Ventricular paced. Left Ventricle Left [...] Note Jonnie Jordan MD - 06/03/2024 [address] [place] [address] Echocardiogram Report Name: ARTURO NICHOLS Study Date: 06/03/2024 02:23AM : 1955 Age: 69 yrs Gender: Male Performed By: Sascha Silva MD Reason For Study: STEMI Interpreting Fellow: Sascha Silva. Interpretation Summary Limited echo performed by fellow bone puller to assess LV function. Left ventricle is mild to moderately dilated. Left ventricular ejectionfraction is estimated visually at 25%. There is global dyskinesia withmid-basilar posterior-posterolateral akinesis. Right ventricle is not well seen. RV systolic function is probablynormal. There is no prior echo for comparison. Procedure Limited - [id number]. Suboptimal quality. Ventricular paced. Left Ventricle Left [...] - 6-14large Aneurysmal 15-16diffuse Unknown ECHO ORDERABLES documented in this encounter Visit Diagnoses Not on filedocumented in this encounter Care Teams Customizer Relationship Specialty Start Date End Date Mauro Berumen MD [address] [place] [address] PCP - General Family Medicine 06/02/24 documented as of this encounter
--- OUTSIDE RECORDS SUMMARY | 2024-08-04 20:34 | XMS_ITS | Encounter Summary ---
Author Organization [facility] Address [facility] [place] [address] Care Team Providers Care Coater Hand Name Role Phone Mauro Berumen MD Primary Care Provider [phone] Encounter Details Date Type Department Care Team (Latest Contact Info) Description 06/03/2024 Travel Social History Tobacco Use Types Packs/Day Years Used Date Smoking Tobacco: Every Day Cigarettes Smokeless Tobacco: Never [facility] Utilities Answer Date Recorded In the [...] any time in the past 12 m [facility], were you homeless or living in a care home (including now)? No 06/03/2024 IPV Inpatient Questions [...] on filedocumented in this encounter Care Teams Coater Hand Relationship Specialty Start Date End Date Mauro Berumen MD [address] [place] [id number] PCP - General Family Medicine 06/02/24 documented as of this encounter
--- OUTSIDE RECORDS SUMMARY | 2024-08-04 20:34 | XMS_ITS | Encounter Summary ---
Author Organization [facility] [place] [address] Care Team Providers Care Business Management Manager Name Role Phone Mauro Berumen MD Primary Care Provider [phone] Reason for Visit * Auth/Cert Specialty Diagnoses / Procedures Referred By Carroll lopez Referred To Contact Diagnoses STEMI (ST elevation myocardial infarction) STEMI Procedures CARDIAC CATHETERIZATION EMERGENCY Delroy Monterroso MD [facility] [place] [address] [facility] Referral ID Status Reason Start Date Expiration Date Visits Re quested Visits Authorized [id number] 1 1 Encounter Details Date Type Department Care Team (Late st Contact Info) Description 06/13/2024 9:00 AM EST - 06/13/2024 10:00 AM [place] [address] Nuha Shen MD [facility] [place] [address] CARDIAC CATHETERIZATION Social History Tobacco Use Types Packs/Day Years Used Date Smoking Tobacco: Every Day Cigarettes Smokeless Tobacco: Never Tobacco Cessation:Ready to Q uit: No; Counseling Given: Yes [facility] Utilities Answer Date Recorded In the past 12 months has [employer] electric, gas, oil, or water company threatened [...] time in the past 12 m [facility], were you homeless or living in a intermediate (including now)? No 06/03/2024 DH IPV Inpatient [...] Pressure 138/86 06/13/2024 9:45 AM EST Pulse 66 06/13/2024 7:41 AM EST Temperature 36.4 ??C (97.6 ??F) 06/13/2024 7:41 AM ES T Respiratory Rate 16 06/13/2024 9:45 AM EST Oxygen Saturation 98% 06/13/2024 9:45 AM EST Inhaled Oxygen Concentration - - Weight 94 kg (207 lb 3.7 oz) 06/13/2024 3:25 AM EST Height 167.6 cm (5' 6) 06/02/2024 10:59 PM EDT Body Mass Index 34.15 06/02/2024 10:59 PM EDT documented in this encounter Discharge Summaries * Keila Hanley APRN - 06/21/2024 8:31 AM EST Inpatient - Discharge Summary Patient Name: George Mehta Patient Age: 69 y.o. Birthdate: 1955 Language: Pashto Race: Choose not to Disclose Ethnicity: Not nor Admit Date: 06/02/2024 Discharge Date: 06/21/2024 Attending Physician: Bobby Loja MD Follow-up Recommendations for Providers: Please continue routine management of cardiovascular risk factors including blood pressure, lipids,glucose, etc. Please note any changes to medications. Patient to follow up with PCP, Mauro Berumen MD, in 1-2 weeks. Patient to follow up with Java Programmer Analyst, Kristen Cardenas in 2-3 weeks. Patient to follow up with Cardiac Surgeon, Dr. Bobby Loja, in 4 wks. Inpatient Provider Contact Information: [facility] Section of Cardiac Surgery [facility] [place] [facility] [address] FAX [phone] Discharge Diagnoses (Hospital Problems) Primary Diagnoses: STEMI [...] (WRVU 33.75) performed by Bobby Loja MD Critical access hospital OR PRO CABG, ARTERY-VEIN, TWO N/A 06/14/2024 @CABG, TWO VENOUS GRAFTS & ARTERIAL GRAFT (WRVU 7.93) performed by Bobby Loja MD at [facility] OR PRO ENDOSCOPY W/VIDEO-ASST VEIN HARVEST, CABG N/A 06/14/2024 ENDOSCOPIC HARVEST VEIN(S) FOR CABG (WRVU 0.31) performed by Bobby Loja MD at [facility] MAIN OR PRO EXC MEDIASTINAL TUMOR N/A 06/14/2024 @EXCISION OF MEDIASTINAL TUMOR (WRVU 19.55) performed by Bobby Loja MD at [facility] MAIN OR PRO INSERT INTRA-AORTIC BALLOON ASST DEVICE PERCUTANEOUS N/A 06/13/2024 @INSERTION OF IABP,PERCUTANEOUS (WRVU 4.84) performed by Nuha Shen MD at [facility] CATH LABS PRO UNLISTED CARDIAC SURG PROCEDURE N/A 06/14/2024 EXPLORATION AND OVERSEW ATRIAL APPENDAGE (WRVU 5.94) performed by Bobby Loja MD at [facility] [place] Prior To Admission Medications Medications [...] remote melanoma, and smoker who presented to [facility] last night via EMS after developing acute, severe chest pain while watching TV. Patient was ruled in for STEMI, given TNK, ASA, plavix, heparin gtt, and sent to [facility] for coronary angiography. [facility] demonstrated severely calcified left coronary system with notable LCx 75/80% lesions and FLARE MAKER OM1 with ISR with collateral retrograde filling, [...] Hospital Course: George Mehta was admitted to [facility] on 06/02/2024 via the CardiologyService with an anterior STEMI after receiving lytics at OSH. He was brought to the pharmaceutical laboratory technician which showed severely calcified left coronary system with notable LCx 75/80% lesions and FLARE MAKER OM1 with ISR with collateral retrograde filling, [...] 2 tablespoons of dried fruit. Milk and nq-qwhwg-fjowv yogurt have 15 grams of carbs in a serving. A serving is 1 cup of milk or 3/4 cup (6 oz) of gz-ivarg-fhokg yogurt. Starchy vegetables have 15 grams of carbs in a serving. A serving is ?? cup of mashed potatoes or sweet potato; 1 cup winter squash; ?? of a small baked potato; ?? cup of cooked beans; or ?? cup cooked corn or green peas. Learn how much carbs to eat each day and at each meal. A dietitian or certified welder can teach you how to keep track [...] Bobby Loja and/or the Cardiac Surgery Physician Irrigator Team may be reached at . Weight: [...] Dr. Bobby Loja. You may use a [place] Track or treadmill but avoid any pulling [...] friends, go to a movie, go to jehovah's witness, etc. Heavy activities: No hunting, skiing, jogging, [...] should resume a low fat, low cholesterol, [place] Heart Association Diet/Diabetic diet. Driving: No driving [...] while being managed by your PCP and/or Java Programmer Analyst. For future medication refills, please refer to your PCP and/or Java Programmer Analyst after your discharge from our service. Thank you REMOVE CHEST TUBE SUTURES ON OR AFTER 06/24/2024 Home oxygen therapy: N/A Follow up appointments: You should follow up with your PCP, Mauro Berumen MD, in 1-2 weeks. You should follow up with your Java Programmer Analyst, Dr CARDENAS. You have an appointment with your Cardiac Surgeon, Dr. Bobby Loja, in 4 wks. Cardiac Rehabilitation: George Mehta was seen today regarding participation in the outpatient Phase 2 Cardiac Rehabilitation at [facility]. The patient agrees to a referral to this program. The referral will be sent at discharge and the patient should be contacted by the program within 1-2 weeks from discharge. Future Appointments and Orders Future Orders Complete By Expires Referral to Cardiac Rehab [[id number] Custom] As directed Process Instructions: If no progress note charted, please enter Clinical details in comments. Scheduling Instructions: Questions: My question or request is: s/p CABG- cardiac rehab at [facility] Referral to Home Health [REF34 Custom] As directed Process Instructions: If no progress note charted, please enter Clinical details in comments. Scheduling Instructions: Comments: Please evaluate George Mehta for admission to Home Health. [address] [facility] [address] (home) Date of : 1955 Inpatient DOCUMENTATION FOR VNA SERVICES (INCLUDING THOSE PATIENTS WITH MEDICARE COVERAGE REQUIRINGHOME VNA SERVICES AND/OR HOSPICE SERVICES) PATIENT'S LOCATION: George Mehta [address] [facility] [address] (home) Telephone Information: Performance Improvement Director's Name: self In discussion with the attending physician, it is certified that this patient is under their care and that they, or a Nurse Practitioner, or Physician Irrigator who is working directly with them, hada [...] for services as follows: HOME HEALTH AGENCY: [facility]. [address] [place] [id number] RN orders: Cardiopulmonary assessment, incisional assessment, assess [...] issues please call the Cardiology Office at [phone] FOR MEDICARE ONLY: (please delete this section [...] care: As above. Signed: KEILA HANLEY APRN [facility] Section of Cardiac Surgery [facility] [place] [facility] [address] FAX [phone] Date: 06/21/2024 CC: MD Antonino Tinajero Joshua R, PA [address] [place] [address] [place] [address] documented in this encounter Discharge Instructions * [...] 2 tablespoons of dried fruit. Milk and xm-jrmxx-hgdtn yogurt have 15 grams of carbs in a serving. A serving is 1 cup of milk or 3/4 cup (6 oz) of nd-yluxb-axssd yogurt. Starchy vegetables have 15 grams of carbs in a serving. A serving is ?? cup of mashed potatoes or sweet potato; 1 cup winter squash; ?? of a small baked potato; ?? cup of cooked beans; or ?? cup cooked corn or green peas. Learn how much carbs to eat each day and at each meal. A dietitian or certified welder can teach you how to keep track [...] Bobby Loja and/or the Cardiac Surgery Physician Irrigator Team may be reached at . Weight: [...] Dr. Bobby Loja. You may use a [place] Track or treadmill but avoid any pulling [...] friends, go to a movie, go to jehovah's witness, etc. Heavy activities: No hunting, skiing, jogging, [...] should resume a low fat, low cholesterol, [place] Heart [employer] Diet/Diabetic diet. Driving: No driving [...] while being managed by your PCP and/or Java Programmer Analyst. For future medication refills, please refer to your PCP and/or Java Programmer Analyst after your discharge from our service. Thank you REMOVE CHEST TUBE SUTURES ON OR AFTER 06/24/2024 Home oxygen therapy: N/A Follow up appointments: You should follow up with your PCP, Mauro Berumen MD, in 1-2 weeks. You should follow up with your Java Programmer Analyst, Dr CARDENAS. You have an appointment with your Cardiac Surgeon, Dr. Bobby Loja, in 4 wks. Cardiac Rehabilitation: George Mehta was seen today regarding participation in the outpatient Phase 2 Cardiac Rehabilitation at [facility]. The patient agrees to a referral to [...] of your patient's venous access was performed [facility] theVascular Access Service. The following tasks [...] of your patient's venous access was performed [facility] theVascular Access Service. The following tasks [...] or weekly) [] Other * Alejandra Baumann, TOOL MAINTENANCE TECHNICIAN - 06/21/2024 7:05 AM EST Follow Up [...] MARIALUISA clipping. PMH of chronic HFrEF s/p BENEFIT SPECIALIST/ICD, IDDM2, HTN, HLD, remote melanoma, active smoker. [...] 2 tablespoons of dried fruit. Milk and rw-tcblm-xgpiy yogurt have 15 grams of carbs in a serving. A serving is 1 cup of milk or 3/4 cup (6 oz) of dp-axblv-hrdzi yogurt. Starchy vegetables have 15 grams of carbs in a serving. A serving is ?? cup of mashed potatoes or sweet potato; 1 cup winter squash; ?? of a small baked potato; ?? cup of cooked beans; or ?? cup cooked corn or green peas. Learn how much carbs to eat each day and at each meal. A dietitian or certified welder can teach you how to keep track [...] cheese, and peanut butter. Alejandra Baumann APRN [facility] Endocrinology Diabetes Management Pager [phone] Weekends please page [phone] * Eric Packer PA - 06/20/2024 7:44 AM EST Cardiac Surgery Progress Note George Mehta is a 69 y.o. male with a history of CAD s/p multiple PCI who presented with an anterior STEMI and was given lytics. Cath showed MV CAD without culprit vessel. He is now 6 Days Post-OpCABGx3 and MARIALUISA clipping. PMH of chronic HFrEF s/p BENEFIT SPECIALIST/ICD, IDDM2, HTN, HLD, remote melanoma, active smoker. 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 06/20/2024 Between the hours of 1800 - 0600 and on the weekends please page [phone]. * Alejandra Baumann, JOSÉ ANTONIO - 06/20/2024 7:21 AM EST Follow Up Diabetes Consult Patient Interview Blood glucose values and insulin use reviewed. hi lo driver BG to 59 despite decrease in glargine [...] MARIALUISA clipping. PMH of chronic HFrEF s/p BENEFIT SPECIALIST/ICD, IDDM2, HTN, HLD, remote melanoma, active smoker. 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 Milk and oj-jipnm-sriog yogurt have 15 grams of carbs in a serving. A serving is 1 cup of milk or 3/4 cup (6 oz) of ch-wuiwg-zwnfp yogurt. Starchy vegetables have 15 grams of carbs in a serving. A serving is ?? cup of mashed potatoes or sweet potato; 1 cup winter squash; ?? of a small baked potato; ?? cup of cooked beans; or ?? cup cooked corn or green peas. Learn how much carbs to eat each day and at each meal. A dietitian or certified welder can teach you how to keep track [...] MARIALUISA clipping. PMH of chronic HFrEF s/p BENEFIT SPECIALIST/ICD, IDDM2, HTN, HLD, remote melanoma, active smoker. 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 Jeffy Hood MD 06/19/2024 Between the hours of 1800 - 0600 and on the weekends please page [phone]. * Alejandra Baumann, TOOL MAINTENANCE TECHNICIAN - 06/19/2024 7:09 AM EST Follow Up Diabetes Consult Patient Interview Blood glucose values and insulin use reviewed. Jardiance added back yesterday, construction controller low BGto 51. Glargine reduced to 45 [...] MARIALUISA clipping. PMH of chronic HFrEF s/p BENEFIT SPECIALIST/ICD, IDDM2, HTN, HLD, remote melanoma, active smoker. Jardiance added back yesterday. hi lo driver low BG to 51. Glargine reduced to [...] 2 tablespoons of dried fruit. Milk and og-uttft-xvoek yogurt have 15 grams of carbs in a serving. A serving is 1 cup of milk or 3/4 cup (6 oz) of si-avwqg-hovnf yogurt. Starchy vegetables have 15 grams of carbs in a serving. A serving is ?? cup of mashed potatoes or sweet potato; 1 cup winter squash; ?? of a small baked potato; ?? cup of cooked beans; or ?? cup cooked corn or green peas. Learn how much carbs to eat each day and at each meal. A dietitian or certified welder can teach you how to keep track [...] cheese, and peanut butter. Alejandra Baumann APRN [facility] Endocrinology Diabetes Management Pager [phone] Weekends please page [phone] * Hilda Resendez PTA - 06/18/2024 9:19 AM EST Physical Therapy Note 2 Patient profile: George Mehta is a 69 y.o. male with a history of CAD s/p multiple PCI who presented with an anterior STEMI and was given lytics. Cath showed MV CAD without culprit vessel. He is now 1 Day Post-Op CABGx3 and MARIALUISA clipping. PMH of chronic HFrEF s/p BENEFIT SPECIALIST/ICD, IDDM2, HTN, HLD, remote melanoma, active smoker. Interval History: Per last cardiac surgery note on 06/18/2024 Cr improved 1.4 on lasix 40 iv bid -1.5L, made 2.5L urine Coreg, entresto restarted Floor status Social History: Pt lives with his in a 1 level apartment with no steps to enter. 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 He drives. He sleeps in a recliner at baseline. Precautions/Special Considerations: Sternal precautions, PIV, at risk to fall, PPM Mobility and Positioning Recommendations: Pt to utilize no AD, supervision for ambulation and transfers w/ nurse staff as able. Please encourage up to chair [...] least restrictive device Time IN / OUT: 5974-5787 Total Time: 11 minutes; TEF 1 Hilda Resendez PTA Pager: [phone] Physical Therapy Inpatient Rehabilitation Department * Keila Hanley, TOOL MAINTENANCE TECHNICIAN - 06/18/2024 8:48 AM EST Cardiac Surgery Progress Note George Mehta is a 69 y.o. male with a history of CAD s/p multiple PCI who presented with an anterior STEMI and was given lytics. Cath showed MV CAD without culprit vessel. He is now 4 Days Post-OpCABGx3 and MARIALUISA clipping. PMH of chronic HFrEF s/p BENEFIT SPECIALIST/ICD, IDDM2, HTN, HLD, remote melanoma, active smoker. [...] sternotomy dressing CDI, saphenectomy dressing CDi Tubes/Lines/Drains: Barr, PIV Assessment/Plan: 69 y.o. 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 Restarting jardiance #Active smoker Duoneb prn Dispo: CVCC, Full code, tx to floor Discussed with attending surgeon on rounds this morning. KEILA HANLEY APRN 06/18/2024 Between the hours of 1800 - 0600 and on the weekends please page [phone]. * Alejandra Baumann, JOSÉ ANTONIO - 06/17/2024 3:29 PM EST Follow Up [...] MARIALUISA clipping. PMH of chronic HFrEF s/p BENEFIT SPECIALIST/ICD, IDDM2, HTN, HLD, remote melanoma, active smoker. [...] based on ISF 20 Alejandra Baumann APRN [facility] Endocrinology Diabetes Management Pager [phone] Weekends please page [phone] 35 minutes were spent over the course [...] MARIALUISA clipping. PMH of chronic HFrEF s/p BENEFIT SPECIALIST/ICD, IDDM2, HTN, HLD, remote melanoma, active smoker. [...] with attending surgeon on rounds this morning. EKILA HANLEY, JOSÉ ANTONIO 06/17/2024 Between the hours of 1800 - 0600 and on the weekends please page [phone]. * Raymond Carlton MD - 06/16/2024 1:11 PM EST CARDIAC CRITICAL CARE ATTENDING STAFF PROGRESS NOTE Patient seen and examined. George Mehta is a 69 y.o. male with: Active Hospital Problems Diagnosis STEMI (ST elevation myocardial infarction) Cardiac resynchronization therapy defibrillator (BENEFIT SPECIALIST-D) - Medtronic Amplia Cardiomyopathy, ischemic Acute on chronic heart failure with reduced ejection fraction (HFrEF, <= 40%) Coronary artery disease involving emmonak coronary artery of emmonak heart without angina pectoris Type 2 diabetes [...] encouragement provided Patient screened for f/u and mortgage underwriter met pt at bedside. Pt [...] unless consulted in the interim. RICHA Simmons Setter Out * Octaviano Horvath PA - 06/16/2024 8:07 AM EST Cardiac Surgery Progress Note George Mehta is a 69 y.o. male with a history of CAD s/p multiple PCI who presented with an anterior STEMI and was given lytics. Cath showed MV CAD without culprit vessel. He is now 2 Days Post-OpCABGx3 and MARIALUISA clipping. PMH of chronic HFrEF s/p BENEFIT SPECIALIST/ICD, IDDM2, HTN, HLD, remote melanoma, active smoker. [...] 0600 and on the weekends please page [phone]. * Jono Fernandez PT - 06/15/2024 4:09 PM EST Physical Therapy Evaluation Patient profile: George Mehta is a 69 y.o. male with a history of CAD s/p multiple PCI who presented with an anterior STEMI and was given lytics. Cath showed MV CAD without culprit vessel. He is now 1 Day Post-Op CABGx3 and MARIALUISA clipping. PMH of chronic HFrEF s/p BENEFIT SPECIALIST/ICD, IDDM2, HTN, HLD, remote melanoma, active smoker. 24h Events: From OR on Dobutamine IABP removed Bedrest ended ~2100, sedation weaned Extubated ~0200 Dobutamine weaned to 1 this morning, CI 2.6, shut off and repeat CI 2.4 Social History: Pt lives with his in a 1 level apartment with no steps to enter. 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 He drives. He sleeps in a recliner at baseline. Precautions/Special Considerations: STERNAL PRECAUTIONS (No pushing, pulling or lifting >8-10lbs); at risk to fall; perm pacemaker; SWAN; chest tube; esau Mobility and Positioning Recommendations: Ambulate 3-4x/daily with [...] Signs: BP: 124/64 seated; 122/57 with amb; esau SpO2: 92 % on 2L HR: 103 [...] outlined inthis evaluation. JONO FERNANDEZ, PT Pager: [phone] Physical Therapy Inpatient Rehabilitation Department Time IN / OUT: 2348-1212 Total Time: 33 (eval) minutes * Alejandra Baumann, TOOL MAINTENANCE TECHNICIAN - 06/15/2024 11:39 AM EST Follow Up Diabetes Consult Patient Interview Blood glucose values and insulin use reviewed. Pt remains on an insulin drip today following [id number] MARIALUISA clipping. George continues to complain of [...] MARIALUISA clipping. PMH of chronic HFrEF s/p BENEFIT SPECIALIST/ICD, IDDM2, HTN, HLD, remote melanoma, active smoker. [...] before meals based on ISF 20 Alejandra Bamuann APRN [facility] Endocrinology Diabetes Management Pager [phone] Weekends please page [phone] 50 minutes were spent over the course [...] elevation myocardial infarction) Cardiac resynchronization therapy defibrillator (BENEFIT SPECIALIST-D) - Medtronic Amplia Cardiomyopathy, ischemic Acute on chronic heart failure with reduced ejection fraction (HFrEF, <= 40%) Coronary artery disease involving emmonak coronary artery of emmonak heart without angina pectoris Type 2 diabetes [...] with h/o DM, CAD with prior PCI, BENEFIT SPECIALIST-D who presented with crushing chest pain, found [...] MARIALUISA clipping. PMH of chronic HFrEF s/p BENEFIT SPECIALIST/ICD, IDDM2, HTN, HLD, remote melanoma, active smoker. [...] sternotomy dressing CDI, saphenectomy dressing CDi Tubes/Lines/Drains: [place], RIJ, A-line, Mediastinal marcos and bilateral pleural [...] 0600 and on the weekends please page [phone]. * Yoli Donaldson, OPERATIONS LOGISTICS ANALYST - 06/15/2024 5:35 AM EST AMV Protocol: [...] with h/o DM, CAD with prior PCI, BENEFIT SPECIALIST-D who presented with crushing chest pain, found [...] 1.5 PTT 31 T/L/D Barr ETT CVL [place] CT Pacing wires ASSESSMENT, MANAGEMENT, and DECISION MAKIN y.o. male with h/o DM, CAD with prior PCI, BENEFIT SPECIALIST-D who presented with crushing chest pain, found [...] 0600 and on the weekends please page [phone]. * Chloé Cortez - 06/14/2024 9:36 AM [...] unless consulted in the interim. Chloé Cortez Integration Specialist * Jim Benites MD - 06/13/2024 1:15 [...] - Mildly dilated left ventricle size with qkzkxgeu-zd-knefokbv decreased LV systolic function. LV ejection fraction [...] 041 94.3 kg (207 lb 14.3 oz) Weight [...] elevation myocardial infarction) Cardiac resynchronization therapy defibrillator (BENEFIT SPECIALIST-D) - Medtronic Amplia Cardiomyopathy, ischemic Acute on chronic heart failure with reduced ejection fraction (HFrEF, <= 40%) Coronary artery disease involving emmonak coronary artery of emmonak heart without angina pectoris Type 2 diabetes [...] PCP: Mauro Berumen MD PCP phone number: [phone] Date of Admission: 06/02/2024 ( Hospital Day 10 days ) Attending:Ethel Carrillo MD ID: 69 y.o. male with a h/o DM type 2, HTN, HLD, current smoker (2-3 cigarettes/day), HFrEF with anICD for low EF (~30%), and CAD with prior AR x3 with JENNA placed in [facility], presented to [facility] with 1 hour of retrosternal CP (05/13) while watching TV, found to have STEMI. Active Problems: Active Hospital Problems Diagnosis STEMI (ST elevation myocardial infarction) Cardiac resynchronization therapy defibrillator (BENEFIT SPECIALIST-D) - Medtronic Amplia Cardiomyopathy, ischemic Acute on chronic heart failure with reduced ejection fraction (HFrEF, <= 40%) Coronary artery disease involving emmonak coronary artery of emmonak heart without angina pectoris Type 2 diabetes [...] 06/03/24 040 Labs: Recent Labs 06/12/24 0303 06/11/2421206/10/24 0155 06/09/24 02106/08/24 0321 WBC 9.69* 9.91* 9.00 9.80* 9.92* HGB 15.2 15.3 14.9 15.5 15.1 HCT 46.6 47.5 46.4 47.4 46.7 PLATELET 194 184 191 205 203 MCV 92.3 92.6 92.2 91.5 91.7 Recent Labs 06/12/24 03006/11/2421206/10/24 01506/09/24 0806/09/2421106/08/24 0321 NA 138 134* 138 -- 136 [...] in the last 7068 hours. Invalid input(s): [id number] Recent Labs 06/12/24 0425 06/11/24 2356 06/11/24 2025 06/11/24 1624 06/11/24 1108 06/11/24 0748 06/11/24 0357 06/11/24 0050 06/10/24 1922 06/10/24 1735 06/10/24 1125 06/10/24 0746 POCGLU 132 135 210* 81 233* 184 132 144 236* 123 216* 206* Heme No results for input(s): LDH, HAPTOGLOBIN, URICACID in the last 168 hours. ABG (Arterial Blood Gas) No results found for: PHART, PO2ART, DRD2WJL, ZMO9CQM Microbiology: Microbiology Results (Last 30 days) No results found for the last 720 hours. Imaging: Results for orders placed or performed during the hospital encounter of 06/02/24 XR Chest One View (Exam End: 06/03/2024 2:41 AM) Result Value WORKSTATION ID [id number] Impression No radiographically evident acute cardiopulmonary process. Thank you for letting us participate in the care of this patient. If you are a health care provider and have any questions regarding this report, please contact the number below. For patients who have questions please contact the health client care manager that requested your imaging first. Electronically signed by: Corazon Mauro MD, [facility] ([phone]), at 06/03/2024 3:06 AM MRI Cardiac Morphology Function wwo Contrast (Exam End: 06/07/2024 1:10 PM) Result Value WORKSTATION ID [id number] Impression - Findings consistent with an ischemic [...] - Mildly dilated left ventricle size with iixaqnig-kl-ijttsrdo decreased LV systolic function. LV ejection fraction [...] who have questions please contact the health client care manager that requested your imaging first. Electronically signed by: Kriss Alonzo MD, [facility] ([phone]), at 06/07/2024 2:[address] Chest wo Contrast (Generic) (Exam End: 06/03/2024 4:33 PM) Result Value WORKSTATION ID [id number] Impression Cardiomegaly. Biventricular ICD leads in place. Thank you for letting us participate in the care of this patient. If you are a health care provider and have any questions regarding this report, please contact the number below. For patients who have questions please contact the health client care manager that requested your imaging first. Electronically signed by: Stuart Aponte MD, [facility] ([phone]), at 06/03/2024 4:47 PM XR Chest PA & Lateral (Generic) (Exam End: 06/07/2024 7:03 AM) Result Value WORKSTATION ID [id number] Impression Biventricular ICD leads intact and in [...] who have questions please contact the health client care manager that requested your imaging first. Electronically signed by: Stuart Aponte MD, [facility] ([phone]), at 06/07/2024 10:45 AM TTE: Limited echo performed by fellow publicity person to assess LV function. Left ventricle is [...] Patient stable, asymptomatic. Plan to go to pharmaceutical laboratory technician for balloon pump tomorrow, then [...] on Friday, likely Friday then transfer to [facility] #HFrEF (Ischemic Cardiomyopathy): -Monitor I&O and daily [...] CODE Dain Colón MD Cardiology, M1-S2, Pager #[phone] 06/12/24 Associated attestation - Ethel Carrillo MD [...] of two midnights or is on the [facility] inpatient only procedure list (status C) due to: acute myocardial infarction requiring titration of IV medication and fluid monitoring and decompensated congestive heart failure requiring IV medication and fluid monitoring Ethel Carrillo MD Cardiovascular Medicine Personal Pager [phone] 06/12/2024 9:12 PM * Alejandra Baumann, TOOL MAINTENANCE TECHNICIAN - 06/11/2024 4:21 PM EST Images from [...] too aggressive, suggest ICR 1:6 (rule of [id number]/81 = 6.25). George is up and walking [...] on placing this weekend and transfer to [facility], likely Friday. With lower BG following meal [...] ac, metformin 1000mg BID Alejandra Baumann APRN [facility] Endocrinology Diabetes Management Pager [phone] Weekends please page [phone] 35 minutes were spent over the course [...] PCP: Mauro Berumen MD PCP phone number: [phone] Date of Admission: 06/02/2024 ( Hospital Day 9 days ) Attending:Melida Valdes MD ID: 69 y.o. male with a h/o DM type 2, HTN, HLD, current smoker (2-3 cigarettes/day), HFrEF with anICD for low EF (~30%), and CAD with prior AR x3 with JENNA placed in [place], Melanoma, PAD, presented to [facility] with 1 hour of retrosternal CP (05/13) while watching TV, found to have STEMI. Active Problems: Active Hospital Problems Diagnosis STEMI (ST elevation myocardial infarction) Cardiac resynchronization therapy defibrillator (BENEFIT SPECIALIST-D) - Medtronic Amplia Cardiomyopathy, ischemic Acute on chronic heart failure with reduced ejection fraction (HFrEF, <= 40%) Coronary artery disease involving emmonak coronary artery of emmonak heart without angina pectoris Type 2 diabetes [...] Phlebitis 0-->no symptoms 06/03/24399 Infiltration 0-->no symptoms 10/31/24 0400 Labs: Recent Labs 06/11/24 0213 06/10/24 0155 06/09/24 0212 06/08/24 0321 06/07/24 0241 WBC 9.91* 9.00 9.80* 9.92* 10.06* HGB 15.3 14.9 15.5 15.1 14.8 HCT 47.5 46.4 47.4 46.7 46.2 PLATELET 184 191 205 203 202 MCV 92.6 92.2 91.5 91.7 92.0 Recent Labs 06/11/24 0213 06/10/24 0155 06/09/24 0825 06/09/24 0212 06/08/24 0321 06/07/24 0944 06/07/24 0241 NA 134* [...] in the last 7068 hours. Invalid input(s): [id number] Recent Labs 06/11/24 0357 06/11/24 0050 06/10/24 1922 06/10/24 1735 06/10/24 1125 06/10/24 0746 06/10/24 0423 06/10/24 0005 06/09/24 2036 06/09/24 1727 06/09/24 1152 06/09/24 0810 POCGLU 132 144 236* 123 216* 206* 154 125 197 174 211* 209* Heme No results for input(s): LDH, HAPTOGLOBIN, URICACID in the last 168 hours. ABG (Arterial Blood Gas) No results found for: PHART, PO2ART, RZZ7JDW, IOH7VOX Microbiology: Microbiology Results (Last 30 days) No results found for the last 720 hours. Imaging: Results for orders placed or performed during the hospital encounter of 06/02/24 XR Chest One View (Exam End: 06/03/2024 2:41 AM) Result Value WORKSTATION ID [id number] Impression No radiographically evident acute cardiopulmonary process. Thank you for letting us participate in the care of this patient. If you are a health care provider and have any questions regarding this report, please contact the number below. For patients who have questions please contact the health client care manager that requested your imaging first. Electronically signed by: Corazon Mauro MD, [facility] ([phone]), at 06/03/2024 3:06 AM MRI Cardiac Morphology Function wwo Contrast (Exam End: 06/07/2024 1:10 PM) Result Value WORKSTATION ID [id number] Impression - Findings consistent with an ischemic [...] - Mildly dilated left ventricle size with veflftqj-sa-swythfhv decreased LV systolic function. LV ejection fraction [...] who have questions please contact the health client care manager that requested your imaging first. Electronically signed by: Kriss Alonzo MD, [facility] ([phone]), at 06/07/2024 2:[address] Chest wo Contrast (Generic) (Exam End: 06/03/2024 4:33 PM) Result Value WORKSTATION ID [id number] Impression Cardiomegaly. Biventricular ICD leads in place. Thank you for letting us participate in the care of this patient. If you are a health care provider and have any questions regarding this report, please contact the number below. For patients who have questions please contact the health client care manager that requested your imaging first. Electronically signed by: Stuart Aponte MD, [facility] ([phone]), at 06/03/2024 4:47 PM XR Chest PA & Lateral (Generic) (Exam End: 06/07/2024 7:03 AM) Result Value WORKSTATION ID [id number] Impression Biventricular ICD leads intact and in [...] who have questions please contact the health client care manager that requested your imaging first. Electronically signed by: Stuart Aponte MD, [facility] ([phone]), at 06/07/2024 10:45 AM TTE: Limited echo performed by fellow publicity person to assess LV function. Left ventricle is [...] Infusions: heparin (porcine) infusion 1,400 Units/hr (06/10/24 1474) PRN Meds:.insulin lispro, glucose 40% oral geL [...] weekend and transfer to [facility], likely Friday. #ASCVD / STEMI: -Holding Plavix; continue ASA and heparin gtt. -Monitor telmetry -TTE -Viability planning per CT surgery - CT chest (complete) - Carotid duplex bilat (complete) - Cardiac MR (scheduled today Thursday 06/07) - Will need balloon pump prior to CABG on Friday, likely Friday then transfer to [facility] #HFrEF (Ischemic Cardiomyopathy): -Monitor I&O and daily [...] CODE Dain Colón MD Cardiology, M1-S2, Pager #[phone] 06/11/24 Associated attestation - Ethel Carrillo MD [...] of two midnights or is on the [facility] inpatient only procedure list (status C) due to: acute myocardial infarction requiring titration of IV medication and fluid monitoring and decompensated congestive heart failure requiring IV medication and fluid monitoring Ethel Carrillo MD Cardiovascular Medicine Personal Pager [phone] 06/11/2024 9:35 PM * Hilary Belle - 06/10/2024 12:39 PM EST Nutrition Services Note George Mehta is a 69 y.o. male Reason for intervention: hospital day 9 Nutrition Plan: Continue diet order: 60/60/75 CHO Level 2 Encourage good PO Lasix and Insulin noted Monitor weight Patient scheduled for a hospital day 9 nutrition evaluation. Gas Welder attempted to meet with pt at bedside [...] unless consulted in the interim. Hilary Belle Setter Out * Mariia Montero RN - 06/10/2024 12:23 PM EST I have met with the patient to: discuss discharge planning needs. provide the [facility], Office of Care Management letter from the [facility] Care Worker pertaining to rehab referrals. provide a letter describing our affiliations within the [facility] and educate about their right to choose where referrals are sent. provide a list of Home Health Agencies / Durable Medical Equipment vendors which serve their preferred geographic area. provided patient with [facility] Star Quality Rating handout. They have requested referrals to: [facility]. [address] [place] [id number] RN / PT Anticipated d/c date: 06/20/24 Note routed to a Roster Clerk who will communicate referrals to facilities and provide any required information. * Dain Colón MD - 06/10/2024 7:17 AM EST Images from the original note were not included. . Cardiology Progress Note Patient info: Name: George Mehta : 1955 PCP: Mauro Berumen MD PCP phone number: [phone] Date of Admission: 06/02/2024 ( Hospital Day 8 days ) Attending:Melida Valdes MD ID: 69 y.o. male with a h/o DM type 2, HTN, HLD, current smoker (2-3 cigarettes/day), HFrEF with anICD for low EF (~30%), and CAD with prior AR x3 with JENNA placed in [place], Melanoma, PAD, presented to [facility] with 1 hour of retrosternal CP (05/13) while watching TV, found to have STEMI. Active Problems: Active Hospital Problems Diagnosis STEMI (ST elevation myocardial infarction) Cardiac resynchronization therapy defibrillator (BENEFIT SPECIALIST-D) - Medtronic Amplia Cardiomyopathy, ischemic Acute on chronic heart failure with reduced ejection fraction (HFrEF, <= 40%) Coronary artery disease involving emmonak coronary artery of emmonak heart without angina pectoris Type 2 diabetes [...] in the last 7068 hours. Invalid input(s): [id number] Recent Labs 06/10/24 0423 06/10/24 0005 06/09/24 2036 06/09/24 1727 06/09/24 1152 06/09/24 0810 06/09/24 0440 06/09/24 0034 06/08/24 2027 06/08/24 1616 06/08/24 1235 06/08/24 0810 POCGLU 154 125 197 174 211* 209* 131 186 176 159 226* 190 Heme No results for input(s): LDH, HAPTOGLOBIN, URICACID in the last 168 hours. ABG (Arterial Blood Gas) No results found for: PHART, PO2ART, JQR9MYH, WDA3YPK Microbiology: Microbiology Results (Last 30 days) No results found for the last 720 hours. Imaging: Results for orders placed or performed during the hospital encounter of 06/02/24 XR Chest One View (Exam End: 06/03/2024 2:41 AM) Result Value WORKSTATION ID [id number] Impression No radiographically evident acute cardiopulmonary process. Thank you for letting us participate in the care of this patient. If you are a health care provider and have any questions regarding this report, please contact the number below. For patients who have questions please contact the health client care manager that requested your imaging first. Electronically signed by: Corazon Mauro MD, [facility] ([phone]), at 06/03/2024 3:06 AM MRI Cardiac Morphology Function wwo Contrast (Exam End: 06/07/2024 1:10 PM) Result Value WORKSTATION ID [id number] Impression - Findings consistent with an ischemic [...] - Mildly dilated left ventricle size with guhspahq-at-dpiuoopw decreased LV systolic function. LV ejection fraction [...] who have questions please contact the health client care manager that requested your imaging first. Electronically signed by: Kirss Alonzo MD, [facility] ([phone]), at 06/07/2024 2:[address] Chest wo Contrast (Generic) (Exam End: 06/03/2024 4:33 PM) Result Value WORKSTATION ID [id number] Impression Cardiomegaly. Biventricular ICD leads in place. Thank you for letting us participate in the care of this patient. If you are a health care provider and have any questions regarding this report, please contact the number below. For patients who have questions please contact the health client care manager that requested your imaging first. Electronically signed by: Stuart Aponte MD, [facility] ([phone]), at 06/03/2024 4:47 PM XR Chest PA & Lateral (Generic) (Exam End: 06/07/2024 7:03 AM) Result Value WORKSTATION ID [id number] Impression Biventricular ICD leads intact and in [...] who have questions please contact the health client care manager that requested your imaging first. Electronically signed by: Stuart Aponte MD, [facility] ([phone]), at 06/07/2024 10:45 AM TTE: Limited echo performed by fellow publicity person to assess LV function. Left ventricle is [...] plan on placing this and transfer to [facility], likely Friday. #ASCVD / STEMI: -Holding Plavix; continue ASA and heparin gtt. -Consult CT surgery for potential open revascularization. -Monitor telmetry -TTE -Viability planning per CT surgery - CT chest (complete) - Carotid duplex bilat (complete) - Cardiac MR (scheduled today Thursday 06/07) - Will need balloon pump prior to CABG on Friday, likely Friday then transfer to [facility] #HFrEF (Ischemic Cardiomyopathy): -Monitor I&O and daily [...] CODE Dain Colón MD Cardiology, M1-S2, Pager #[phone] 06/10/24 Associated attestation - Melida Valdes MD [...] a lytic and brought directly to the Receiving Clerk. Cardiac catheterization demonstrated multivessel disease with severe calcification of the arteries, but no culprit lesion. Given complexity and calcifications CABG was recommended, EDP noted to be 40. Patient underwent evaluation with CT surgery. Cardiac MRI was recommended for viability, it was postponed until Kumar due to of ability. In the meantime [...] who is agreeable Melida Valdes MD Staff Java Programmer Analyst * Cherelle Fregoso, JOSÉ ANTONIO - 06/09/2024 8:59 AM EST Images from [...] PCP: Mauro Berumen MD PCP phone number: [phone] Date of Admission: 06/02/2024 ( Hospital Day 7 days ) Attending:Melida Valdes MD ID: 69 y.o. male with a h/o DM type 2, HTN, HLD, current smoker (2-3 cigarettes/day), HFrEF with anICD for low EF (~30%), and CAD with prior AR x3 with JENNA placed in [place], Melanoma, PAD, presented to [facility] with 1 hour of retrosternal CP (05/13) while watching TV, found to have STEMI. Active Problems: Active Hospital Problems Diagnosis STEMI (ST elevation myocardial infarction) Acute on chronic heart failure with reduced ejection fraction (HFrEF, <= 40%) Coronary artery disease involving emmonak coronary artery of emmonak heart without angina pectoris Type 2 diabetes [...] 0-->no symptoms 06/03/24 0400 Labs: Recent Labs 06/09/242 06/08/241 06/07/24 0241 06/06/24 0333 06/05/24 0344 WBC [...] in the last 7068 hours. Invalid input(s): [id number] Recent Labs 06/09/24 0440 06/09/24 0034 06/08/24 2027 06/08/24 1616 06/08/24 1235 06/08/24 0810 06/08/24 0409 06/07/24 2357 06/07/24 2005 06/07/24 1631 06/07/24 1105 06/07/24 1103 POCGLU 131 186 176 159 226* 190 151 188 118 174 221* 250* Heme No results for input(s): LDH, HAPTOGLOBIN, URICACID in the last 168 hours. ABG (Arterial Blood Gas) No results found for: PHART, PO2ART, KTV5OVX, DEE5CIC Microbiology: Microbiology Results (Last 30 days) No results found for the last 720 hours. Imaging: Results for orders placed or performed during the hospital encounter of 06/02/24 XR Chest One View (Exam End: 06/03/2024 2:41 AM) Result Value WORKSTATION ID [id number] Impression No radiographically evident acute cardiopulmonary process. Thank you for letting us participate in the care of this patient. If you are a health care provider and have any questions regarding this report, please contact the number below. For patients who have questions please contact the health client care manager that requested your imaging first. Electronically signed by: Corazon Mauro MD, [facility] ([phone]), at 06/03/2024 3:06 AM MRI Cardiac Morphology Function wwo Contrast (Exam End: 06/07/2024 1:10 PM) Result Value WORKSTATION ID [id number] Impression - Findings consistent with an ischemic [...] - Mildly dilated left ventricle size with frhhezro-sd-muifpdhi decreased LV systolic function. LV ejection fraction [...] who have questions please contact the health client care manager that requested your imaging first. Electronically signed by: Kriss Alonzo MD, [facility] ([phone]), at 06/07/2024 2:[address] Chest wo Contrast (Generic) (Exam End: 06/03/2024 4:33 PM) Result Value WORKSTATION ID [id number] Impression Cardiomegaly. Biventricular ICD leads in place. Thank you for letting us participate in the care of this patient. If you are a health care provider and have any questions regarding this report, please contact the number below. For patients who have questions please contact the health client care manager that requested your imaging first. Electronically signed by: Stuart Aponte MD, [facility] ([phone]), at 06/03/2024 4:47 PM XR Chest PA & Lateral (Generic) (Exam End: 06/07/2024 7:03 AM) Result Value WORKSTATION ID [id number] Impression Biventricular ICD leads intact and in [...] who have questions please contact the health client care manager that requested your imaging first. : Limited echo performed by fellow publicity person to assess LV function. Left ventricle is [...] Infusions: heparin (porcine) infusion 1,400 Units/hr (06/08/24 992) PRN Meds:.glucose 40% oral geL OR dextrose [...] CODE Dain Colón MD Cardiology, M1-S2, Pager #[phone] 06/09/24 Associated attestation - Melida Valdes MD [...] a lytic and brought directly to the Receiving Clerk. Cardiac catheterization demonstrated multivessel disease with severe [...] insertion low EF. Melida Valdes MD Staff Java Programmer Analyst * Alejandra Baumann, JOSÉ ANTONIO - 06/08/2024 [...] to optimize glucose control Alejandra Baumann APRN [facility] Endocrinology Diabetes Management Pager [phone] Weekends please page [phone] 35 minutes were spent over the course [...] PCP: Mauro Berumen MD PCP phone number: [phone] Date of Admission: 06/02/2024 ( Hospital Day 6 days ) Attending:Melida Valdes MD ID: 69 y.o. male with a h/o DM type 2, HTN, HLD, current smoker (2-3 cigarettes/day), HFrEF with anICD for low EF (~30%), and CAD with prior AR x3 with JENNA placed in [place], Melanoma, PAD, presented to [facility] with 1 hour of retrosternal CP (05/13) while watching TV, found to have STEMI. Active Problems: Active Hospital Problems Diagnosis STEMI (ST elevation myocardial infarction) Acute on chronic heart failure with reduced ejection fraction (HFrEF, <= 40%) Coronary artery disease involving emmonak coronary artery of emmonak heart without angina pectoris Type 2 diabetes [...] in the last 7068 hours. Invalid input(s): [id number] Recent Labs 06/08/24 0409 06/07/247 06/07/24200406/07/24 1631 06/07/24 1105 06/07/24 1103 06/07/24 0745 06/07/24 0425 06/07/24 0008 06/06/24201706/06/24 1539 06/06/24 1339 POCGLU 151 188 118 174 221* 250* 175 127 182 143 147 317* Heme No results for input(s): LDH, HAPTOGLOBIN, URICACID in the last 168 hours. ABG (Arterial Blood Gas) No results found for: PHART, PO2ART, IUY7DLP, DII5CNF Microbiology: Microbiology Results (Last 30 days) No results found for the last 720 hours. Imaging: Results for orders placed or performed during the hospital encounter of 06/02/24 XR Chest One View (Exam End: 06/03/2024 2:41 AM) Result Value WORKSTATION ID [id number] Impression No radiographically evident acute cardiopulmonary process. Thank you for letting us participate in the care of this patient. If you are a health care provider and have any questions regarding this report, please contact the number below. For patients who have questions please contact the health client care manager that requested your imaging first. Electronically signed by: Corazon Mauro MD, [facility] ([phone]), at 06/03/2024 3:06 AM MRI Cardiac Morphology Function wwo Contrast (Exam End: 06/07/2024 1:10 PM) Result Value WORKSTATION ID [id number] Impression - Findings consistent with an ischemic [...] - Mildly dilated left ventricle size with qiowqzer-bs-vypsxewg decreased LV systolic function. LV ejection fraction [...] who have questions please contact the health client care manager that requested your imaging first. Electronically signed by: Kriss Alonzo MD, [facility] ([phone]), at 06/07/2024 2:[address] Chest wo Contrast (Generic) (Exam End: 06/03/2024 4:33 PM) Result Value WORKSTATION ID [id number] Impression Cardiomegaly. Biventricular ICD leads in place. Thank you for letting us participate in the care of this patient. If you are a health care provider and have any questions regarding this report, please contact the number below. For patients who have questions please contact the health client care manager that requested your imaging first. Electronically signed by: Stuart Aponte MD, [facility] ([phone]), at 06/03/2024 4:47 PM XR Chest PA & Lateral (Generic) (Exam End: 06/07/2024 7:03 AM) Result Value WORKSTATION ID [id number] Impression Biventricular ICD leads intact and in [...] who have questions please contact the health client care manager that requested your imaging first. Electronically signed by: Stuart Aponte MD, [facility] ([phone]), at 06/07/2024 10:45 AM TTE: Limited echo performed by fellow publicity person to assess LV function. Left ventricle is [...] Infusions: heparin (porcine) infusion 1,400 Units/hr (06/08/24 0412) PRN Meds:.insulin lispro, potassium chloride ER OR [...] CODE Dain Colón MD Cardiology, M1-S2, Pager #[phone] 06/08/24 Associated attestation - Melida Valdes MD [...] a lytic and brought directly to the Receiving Clerk. Cardiac catheterization demonstrated multivessel disease with severe [...] Otherwise clinically stable Melida Valdes MD Staff Java Programmer Analyst * Ross Manuel PA - 06/07/2024 12:00 PM EST Cardiac Electrophysiology CIED Interrogation/Programming Note Asked by MRI staff to evaluate and program Medtronic BENEFIT SPECIALIST-D to allow for MR imaging. Patient Active Problem List Diagnosis ','STEMI (ST elevation myocardial infarction) Acute on chronic heart failure with reduced ejection fraction (HFrEF, <= 40%) Coronary artery disease involving emmonak coronary artery of emmonak heart without angina pectoris Type 2 diabetes mellitus Device Data: Medtronic Amplia MRI Quad BENEFIT SPECIALIST-D [id number] #[id number] 06/16/2019 RA Medtronic 4076 CapSureFix Novus [id number] 06/16/2019 RV Medtronic 6935M [id number] 06/16/2019 LV Medtronic 4298 Attain Performa MRI [id number] 06/16/2019 DDD @ 50/130/130 Adaptive Bi-V and LV VF >188bpm ATP, 35j x6 FVT >188-222bpm burst 2, 35jx5 VT Battery longevity: 2.5yrs; charge time 4s P wave: 2.3mV R wave: >20.0mV Atrial impedance: 458 ohms RV impedance: 646 ohms LV impedance: 722 ohms Atrial threshold: 0.5V @ 0.4ms RV threshold: LV threshold: 1.75V @ 0.4ms AP 0.2% CLINICAL ACCOUNT SPECIALIST 97.7% AT/AF 0% Impression and Plan: 1. Interrogated device to determine suitability for MRI 2. Programmed to MRI safe mode - VOO @ 70 3. Scan performed 4. Programming restored to baseline settings 5. Reinterrogated to verify appropriate function and settings 6. Device follow up as previously scheduled Provider: HENOK Meyer EP Consult attending physician: Libby Barton MD EP Consult positional pager #[phone](EPMD) EP Device interrogation positional pager # [phone] * Dain Colón MD - 06/07/2024 7:09 AM EST Images from the original note were not included. . Cardiology Progress Note Patient info: Name: George Mehta : 1955 PCP: Mauro Berumen MD PCP phone number: [phone] Date of Admission: 06/02/2024 ( Hospital Day 5 days ) Attending:Melida Valdes MD ID: 69 y.o. male with a h/o DM type 2, HTN, HLD, current smoker (2-3 cigarettes/day), HFrEF with anICD for low EF (~30%), and CAD with prior AR x3 with JENNA placed in [place], Melanoma, PAD, presented to [facility] with 1 hour of retrosternal CP (05/13) while watching TV, found to have STEMI. Active Problems: Active Hospital Problems Diagnosis STEMI (ST elevation myocardial infarction) Acute on chronic heart failure with reduced ejection fraction (HFrEF, <= 40%) Coronary artery disease involving emmonak coronary artery of emmonak heart without angina pectoris Type 2 diabetes [...] in the last 7068 hours. Invalid input(s): [id number] Recent Labs 06/07/24 0425 06/07/24 0008 06/06/24 2018 06/06/24 1539 06/06/24 1339 06/06/24 1134 06/06/24 0757 06/06/24 0653 06/05/24 2231 06/05/24 1622 06/05/24 1134 06/05/24 0727 POCGLU 127 182 143 147 317* 264* 195 187 238* 205* 211* 166 Heme No results for input(s): LDH, HAPTOGLOBIN, URICACID in the last 168 hours. ABG (Arterial Blood Gas) No results found for: PHART, PO2ART, EDB6ZNW, APF0FJT Microbiology: Microbiology Results (Last 30 days) No results found for the last 720 hours. Imaging: Results for orders placed or performed during the hospital encounter of 06/02/24 XR Chest One View (Exam End: 06/03/2024 2:41 AM) Result Value WORKSTATION ID [id number] Impression No radiographically evident acute cardiopulmonary process. Thank you for letting us participate in the care of this patient. If you are a health care provider and have any questions regarding this report, please contact the number below. For patients who have questions please contact the health client care manager that requested your imaging first. Electronically signed by: Corazon Mauro MD, [facility] ([phone]), at 06/03/2024 3:[address] Chest wo Contrast (Generic) (Exam End: 06/03/2024 4:33 PM) Result Value WORKSTATION ID [id number] Impression Cardiomegaly. Biventricular ICD leads in place. Thank you for letting us participate in the care of this patient. If you are a health care provider and have any questions regarding this report, please contact the number below. For patients who have questions please contact the health client care manager that requested your imaging first. Electronically signed by: Stuart Aponte MD, [facility] ([phone]), at 06/03/2024 4:47 PM TTE: Limited echo performed by fellow publicity person to assess LV function. Left ventricle is [...] Continuous Infusions: heparin (porcine) infusion 1,400 Units/hr (06/06/244) PRN Meds:.insulin lispro, potassium chloride ER OR [...] Dain Colón MD (PGY-1) Cardiology, M1-S2, Pager #[phone] 06/07/24 Associated attestation - Melida Valdes MD [...] a lytic and brought directly to the Receiving Clerk. Cardiac catheterization demonstrated multivessel disease with severe [...] for further guidance. Melida Valdes MD Staff Java Programmer Analyst * Dain Colón MD - 06/06/2024 7:17 AM EST Images from the original note were not included. . Cardiology Progress Note Patient info: Name: George Mehta : 1955 PCP: Mauro Berumen MD PCP phone number: [phone] Date of Admission: 06/02/2024 ( Hospital Day 4 days ) Attending:Melida Valdes MD ID: 69 y.o. male with a h/o DM type 2, HTN, HLD, current smoker (2-3 cigarettes/day), HFrEF with anICD for low EF (~30%), and CAD with prior AR x3 with JENNA placed in [place], Melanoma, PAD, presented to [facility] with 1 hour of retrosternal CP (05/13) while watching TV, found to have STEMI. Active Problems: Active Hospital Problems Diagnosis STEMI (ST elevation myocardial infarction) Acute on chronic heart failure with reduced ejection fraction (HFrEF, <= 40%) Coronary artery disease involving emmonak coronary artery of emmonak heart without angina pectoris Type 2 diabetes [...] 0-->no symptoms 06/03/24 0400 Labs: Recent Labs 06/06/2433206/05/244 06/04/24 0438 06/03/24 0213 WBC 9.81* 10.83* [...] in the last 7068 hours. Invalid input(s): [id number] Recent Labs 06/06/24 0653 06/05/24 2231 06/05/24 1622 06/05/24 1134 06/05/24 0727 06/04/24 1943 06/04/24 1526 06/04/24 1109 06/04/24 0711 06/03/24 2005 06/03/24 1748 06/03/24 1114 POCGLU 187 238* 205* 211* 166 175 154 188 182 136 191 166 Heme No results for input(s): LDH, HAPTOGLOBIN, URICACID in the last 168 hours. ABG (Arterial Blood Gas) No results found for: PHART, PO2ART, DFI4TDB, IHF7DVS Microbiology: Microbiology Results (Last 30 days) No results found for the last 720 hours. Imaging: Results for orders placed or performed during the hospital encounter of 06/02/24 XR Chest One View (Exam End: 06/03/2024 2:41 AM) Result Value WORKSTATION ID [id number] Impression No radiographically evident acute cardiopulmonary process. Thank you for letting us participate in the care of this patient. If you are a health care provider and have any questions regarding this report, please contact the number below. For patients who have questions please contact the health client care manager that requested your imaging first. Electronically signed by: Corazon Mauro MD, [facility] ([phone]), at 06/03/2024 3:[address] Chest wo Contrast (Generic) (Exam End: 06/03/2024 4:33 PM) Result Value WORKSTATION ID [id number] Impression Cardiomegaly. Biventricular ICD leads in place. Thank you for letting us participate in the care of this patient. If you are a health care provider and have any questions regarding this report, please contact the number below. For patients who have questions please contact the health client care manager that requested your imaging first. Electronically signed by: Stuart Aponte MD, [facility] ([phone]), at 06/03/2024 4:47 PM TTE: Limited echo performed by fellow publicity person to assess LV function. Left ventricle is [...] (Active) Number of days: 3 Code status: @CODESTATUS@ Dain Colón MD (PGY-1) Cardiology, M1-S2, Pager #[phone] 06/06/24 Associated attestation - Melida Valdes MD [...] a lytic and brought directly to the Receiving Clerk. Cardiac catheterization demonstrated multivessel disease with severe [...] management. Help appreciated Melida Valdes MD Staff Java Programmer Analyst * Frederick Dunn MD - 06/05/2024 8:13 AM EDT Images from the original note were not included. . Cardiology Progress Note Patient info: Name: George Mehta : 1955 PCP: Mauro Berumen MD PCP phone number: [phone] Date of Admission: 06/02/2024 ( Hospital Day 3 days ) Attending:Melida Valdes MD ID: 69 y.o. male with a h/o DM type 2, HTN, HLD, current smoker (2-3 cigarettes/day), HFrEF with anICD for low EF (~30%), and CAD with prior AR x3 with JENNA placed in [place], Melanoma, PAD, presented to [facility] with 1 hour of retrosternal CP (05/13) [...] difficulty;blood return, able to obtain;alcohol impregnated capapplied 06/03/24119 Phlebitis 0-->no symptoms 06/03/24399 Infiltration 0-->no symptoms 06/03/24399 Labs: Recent Labs 06/05/2434306/04/2443706/03/24212 WBC 10.83* 11.45* 11.16* HGB 15.3 16.0 15.0 HCT 46.8 49.6* 47.4 PLATELET 219 222 217 MCV 92.3 92.7 93.1 Recent Labs 06/05/24 0904 06/05/24 0344 06/04/24 2234 06/04/24 1635 06/04/24 1041 06/04/2443706/03/24212 NA -- 136 -- -- -- 137 [...] in the last 7068 hours. Invalid input(s): [id number] Recent Labs 06/05/24 1134 06/05/24 0727 06/04/24 1943 06/04/24 1526 06/04/24 1109 06/04/24 0711 06/03/24 2005 06/03/24 1748 06/03/24 1114 06/03/24 0754 06/02/24 2331 POCGLU 211* 166 175 154 188 182 136 191 166 195 156 Heme No results for input(s): LDH, HAPTOGLOBIN, URICACID in the last 168 hours. ABG (Arterial Blood Gas) No results found for: PHART, PO2ART, POR2JKX, OEY1VLQ Microbiology: Microbiology Results (Last 30 days) No results found for the last 720 hours. Imaging: Results for orders placed or performed during the hospital encounter of 06/02/24 XR Chest One View (Exam End: 06/03/2024 2:41 AM) Result Value WORKSTATION ID [id number] Impression No radiographically evident acute cardiopulmonary process. Thank you for letting us participate in the care of this patient. If you are a health care provider and have any questions regarding this report, please contact the number below. For patients who have questions please contact the health client care manager that requested your imaging first. Electronically signed by: Corazon Mauro MD, [facility] ([phone]), at 06/03/2024 3:[address] Chest wo Contrast (Generic) (Exam End: 06/03/2024 4:33 PM) Result Value WORKSTATION ID [id number] Impression Cardiomegaly. Biventricular ICD leads in place. Thank you for letting us participate in the care of this patient. If you are a health care provider and have any questions regarding this report, please contact the number below. For patients who have questions please contact the health client care manager that requested your imaging first. Electronically signed by: Stuart Aponte MD, [facility] ([phone]), at 06/03/2024 4:47 PM TTE: Limited echo performed by fellow publicity person to assess LV function. Left ventricle is [...] all the information they need regarding the BENEFIT SPECIALIST-D.Plan for MRI tomorrow. Starting 40 mg IV [...] a lytic and brought directly to the Receiving Clerk. Cardiac catheterization demonstrated multivessel disease with severe [...] maintenance of 40. Melida Valdes MD Staff Java Programmer Analyst * Migel Javier RN - 06/05/2024 6:21 AM EDT Implanted device record scanned into: Chart Review-->Media-->External Cardiology-->03/25/2024. Medtronic Amplia MRI Quad CRTD [id number] Serial #: [id number] DDD mode A + Bi/V Rates 50-130 Migel Javier RN * Dain Colón MD - 06/04/2024 11:16 AM EDT Implant Records Requested Type: BENEFIT SPECIALIST-D Band Scroll Saw Operator: Medtronic Product: [id number] Amplia MRI MRI compatibility: Compatible for 1.5-3 T Model #: [id number] Placed at: [place], [place] Records requested for MRI: 1. Operative report 2. Implant log I requested that these records be sent to our MRI department, Dain Colón MD 06/04/24 11:58 AM * Dain Colón MD - 06/04/2024 6:57 AM EDT Images from the original note were not included. . Cardiology Progress Note Patient info: Name: George Mehta : 1955 PCP: Mauro Berumen MD PCP phone number: [phone] Date of Admission: 06/02/2024 ( Hospital Day 2 days ) Attending:Delroy Fofana MD ID: 69 y.o. male with a h/o DM type 2, HTN, HLD, current smoker (2-3 cigarettes/day), HFrEF with anICD for low EF (~30%), and CAD with prior AR x3 with JENNA placed in [place], Melanoma, PAD, presented to [facility] with 1 hour of retrosternal CP (05/13) [...] difficulty;blood return, able to obtain;alcohol impregnated capapplied 06/03/24119 Phlebitis 0-->no symptoms 06/03/24399 Infiltration 0-->no symptoms [...] in the last 7068 hours. Invalid input(s): [id number] Recent Labs 06/03/24 2005 06/03/24 1748 06/03/24 1114 06/03/24 0754 06/02/24 2331 POCGLU 136 191 166 195 156 Heme No results for input(s): LDH, HAPTOGLOBIN, URICACID in the last 168 hours. ABG (Arterial Blood Gas) No results found for: PHART, PO2ART, GLZ4YYW, OMD9DXG Microbiology: Microbiology Results (Last 30 days) No results found for the last 720 hours. Imaging: Results for orders placed or performed during the hospital encounter of 06/02/24 XR Chest One View (Exam End: 06/03/2024 2:41 AM) Result Value WORKSTATION ID [id number] Impression No radiographically evident acute cardiopulmonary process. Thank you for letting us participate in the care of this patient. If you are a health care provider and have any questions regarding this report, please contact the number below. For patients who have questions please contact the health client care manager that requested your imaging first. Electronically signed by: Corazon Mauro MD, [facility] ([phone]), at 06/03/2024 3:[address] Chest wo Contrast (Generic) (Exam End: 06/03/2024 4:33 PM) Result Value WORKSTATION ID [id number] Impression Cardiomegaly. Biventricular ICD leads in place. Thank you for letting us participate in the care of this patient. If you are a health care provider and have any questions regarding this report, please contact the number below. For patients who have questions please contact the health client care manager that requested your imaging first. Electronically signed by: Stuart Aponte MD, [facility] ([phone]), at 06/03/2024 4:47 PM TTE: Limited echo performed by fellow publicity person to assess LV function. Left ventricle is [...] -Lasix 40 mg IV given in the pharmaceutical laboratory technician; assess diuretic response, consider re-dosing [...] @CODESTATUS@ Dain Colón MD (PGY-1) Cardiology M1-S2, #[id number] 06/04/2024, 6:57 AM Associated attestation - Melida [...] a lytic and brought directly to the Receiving Clerk. Cardiac catheterization demonstrated multivessel disease with severe [...] Friday -Diuresis with Jovanni Valdes MD Staff Java Programmer Analyst * Fatmata Mcallister PT - 06/03/2024 3:29 [...] vs PCI) Fatmata Mcallister PT, MSPT Pager [phone] Inpatient Physical Therapy * Marlin Gómez MD [...] Marlin Gómez MD Cardiology S2, Pager # [phone] 06/03/2024 * Delroy Fofana MD - 06/03/2024 7:16 AM EDT Images from the original note were not included. . Cardiology Progress Note Patient info: Name: George Mehta : 1955 PCP: Mauro Berumen MD PCP phone number: [phone] Date of Admission: 06/02/2024 ( Hospital Day 1 day ) Attending:Nuha Rojo MD ID: 69 y.o. male with a h/o DM type 2, HTN, HLD, current smoker (2-3 cigarettes/day), HFrEF with anICD for low EF (~30%), and CAD with prior AR x3 with JENNA placed in [place], Melanoma, PAD, presented to [facility] with 1 hour of retrosternal CP (05/13) [...] Infiltration 0-->no symptoms 06/03/24399 Labs: Recent Labs 06/03/24212 WBC 11.16* HGB [...] in the last 7068 hours. Invalid input(s): XNWSBQRBQHK0Q Recent Labs 06/02/24 2331 POCGLU 156 Heme No results for input(s): LDH, HAPTOGLOBIN, URICACID in the last 168 hours. ABG (Arterial Blood Gas) No results found for: PHART, PO2ART, NQZ6NRD, KNH6YYH Microbiology: Microbiology Results (Last 30 days) No results found for the last 720 hours. Imaging: Results for orders placed or performed during the hospital encounter of 06/02/24 XR Chest One View (Exam End: 06/03/2024 2:41 AM) Result Value WORKSTATION ID [id number] Impression No radiographically evident acute cardiopulmonary process. Thank you for letting us participate in the care of this patient. If you are a health care provider and have any questions regarding this report, please contact the number below. For patients who have questions please contact the health client care manager that requested your imaging first. Electronically signed by: Corazon Mauro MD, [facility] ([phone]), at 06/03/2024 3:06 AM TTE: Limited echo performed by fellow publicity person to assess LV function. Left ventricle is [...] -Lasix 40 mg IV given in the pharmaceutical laboratory technician; assess diuretic response, consider re-dosing [...] (Active) Number of days: 0 Code status: @YESSI@ Dain Colón MD (PGY-1) Cardiology M1-S2, #[id number] 06/03/2024, 7:16 AM Cardiology Staff - Progress Note Addendum This patient was seen and examined on morning rounds with the S2 inpatient team. I agree with the findings and plan of care per Dain Colón MD (medical transcription radiology). Please refer to his note above for details. Very pleasant 69 year old male but he is obese, diabetic, and he is a SMOKER with known prior CAD and moderately reduced LVEF (30%). He has a pacer. History of surgical resection of melanoma on his head. The patient was transferred overnight to [facility] as a STEMI. He was treated initially with a lytic (TNK) and brought directly to the pharmaceutical laboratory technician. The cath demonstrated 3VD with [...] - 06/13/2024 10:58 AM EST ICU Blue (#[id number]) H&P Patient info: Name: George Mehta : 1955 PCP: Mauro Berumen MD PCP phone number: [phone] Date of Admission: 06/02/2024 ( Hospital Day 11 days ) Attending:Haja Byrnes MD ID: George Mehta is a 69 y.o. male with a h/o DM type 2, HTN, HLD, current smoker (2-3 cigarettes/day), HFrEF with an ICD for low EF (~30%), and CAD with prior AR x3 with JENNA placed in [place], Melanoma, PAD, presented to [facility] with 1 hour of retrosternal CP (05/13) while watching TV, foundto have STEMI. HPI: Shahnaz Scanlon H&P 06/02 69 y.o. male with a h/o DM type 2, HTN, HLD, current smoker (2-3 cigarettes/day), HFrEF with an ICD for low EF (~30%), and CAD with prior AR x3 with JENNA placed in [place], Melanoma, PAD, presented to [facility] with 1 hour of retrosternal CP (05/13) while watching TV. CP was non-radiating, not asso ciated with diaphoresis, nausea, or SOB. Denies orthopnea, MARTÍNEZ, palpitations, or LE edema. ECG showed findings consistent with anterior STEMI. He received TNK and was transferred for PCI. Coronary angiography showed a small, non-dominant RCA with mcln-ub-ktmcwtil disease and a dominant,heavily calcified left system with prior stents in the LAD and OM. The LM bifurcates into the LAD and LCX, both heavily calcified. The proximal LCX has a 75% calcified, aneurysmal lesion, and an 80% calcified lesion distally before a large OM2. OM1 is a FLARE MAKER with in-stent restenosis, filling retrograde via collaterals. [...] 40 mg Lasix was administered in the pharmaceutical laboratory technician. Cardiac surgery was consulted and [...] Blood Gas) No results for input(s): PHART, HDF9UNT, PO2ART, UBI0RRA, LACTATEVEN, GOA5BPQ, PFRATIOART2 in the last 168 hours. VBG (Venous Blood Gas) Recent Labs 06/10/24 1742 PHVEN 7.34 PO2VEN 24 QPJ3LEU 27.4 Mixed Venous Sat No results for input(s): F5RATZ2 in the last 168 hours. Intake/Output Summary [...] 06/12/24 0303 06/11/24 0213 06/10/24 0155 06/09/24 021 WBC 9.98* 9.69* 9.91* 9.00 9.80* HGB 15.3 15.2 15.3 14.9 15.5 HCT 47.1 46.6 47.5 46.4 47.4 PLATELET 194 194 184 191 205 MCV 92.2 92.3 92.6 92.2 91.5 Recent Labs 06/13/24 0748 06/13/24 0226 06/12/24 1419 06/12/24 0303 06/11/24 0213 06/10/24 0155 06/09/24 0825 06/09/24 021 NA -- 136 -- 138 134* 138 [...] in the last 7068 hours. Invalid input(s): GYBEOBXVNNO2C Recent Labs 06/13/24 0741 06/13/24 0325 06/12/24 2353 06/12/24 1932 06/12/24 1541 06/12/24 1121 06/12/24 0800 06/12/24 0425 06/11/24 2356 06/11/24 2025 06/11/24 1624 06/11/24 1108 POCGLU 126 99 141 158 113 207* 169 132 135 210* 81 233* Heme No results for input(s): LDH, HAPTOGLOBIN, URICACID in the last 168 hours. ABG (Arterial Blood Gas) No results for input(s): PHART, YFZ9WAZ, PO2ART, QCR2IQQ, LACTATEVEN, AWQ5OEE, PFRATIOART2 in the last 168 hours. VBG (Venous Blood Gas) Recent Labs 06/10/24 1742 PHVEN 7.34 PO2VEN 24 HWL4BJL 27.4 Mixed Venous Sat No results for input(s): J1ZKWR8 in the last 168 hours. Microbiology: Microbiology [...] Plan for CABG 06/14. Patient NPO at [place]. #ASCVD / STEMI: -Holding Plavix; continue ASA [...] (Give Meds) Daily Healthy Menu Choices/Cardiac diet ([facility]-Diet) DVT Prophylaxis: SCD GI Prophylaxis: None Dispo: [...] is in the chart Rebeca Prado MD Utilization Review Nurse PGY6 p3258 * Shahnaz Scanlon MD - [...] prior AR x3 with JENNA placed in [place], [facility], presented to [facility] with 1 hour of retrosternal CP (05/13) while watching TV. CP was non-radiating, not assoc iated with diaphoresis, nausea, or SOB. Denies orthopnea, MARTÍNEZ, palpitations, or LE edema. ECG showed findings consistent with anterior STEMI. He received TNK and was transferred for PCI. Coronary angiography showed a small, non-dominant RCA with sqop-zi-aehdmrvv disease and a dominant,heavily calcified left system with prior stents in the LAD and OM. The LM bifurcates into the LAD and LCX, both heavily calcified. The proximal LCX has a 75% calcified, aneurysmal lesion, and an 80% calcified lesion distally before a large OM2. OM1 is a FLARE MAKER with in-stent restenosis, filling retrograde via collaterals. [...] 40 mg Lasix was administered in the pharmaceutical laboratory technician. Past Medical History: As per [...] Affect: Mood normal. Behavior: Behavior normal. Diagnostics: [facility] 06/02/2024 Coronary angiography revealed small non [...] -Lasix 40 mg IV given in the pharmaceutical laboratory technician; assess diuretic response. -Continue carvedilol; [...] & Follow-up Care: Contact information for follow-up [facility] [address] [facility] [address] Cardiac Rehab, [address] [address] JAMIE GRAMAJO confirmed with [facility] that they [...] N/A Patient is insured through: Primary Insurance: [facility] MANAGED MEDICARE Payor: AAR MANAGED MEDICARE / Plan: [facility] MANAGED MEDICARE COMPLETE / Product Type: *No [...] (Interventions Implemented as Appropriate) 06/20/2024 1028 by KohlerMichelle Peters RN Outcome: Ongoing (Interventions Implemented as Appropriate) [...] Roberts RN - 06/18/2024 10:50 AM EST [facility] CARD[facility]IL[facility]ATION George Mehta was seen today regarding participation in the outpatient Phase 2 Cardiac Rehabilitation at [facility]. The patient agrees to a referral to [...] MEDICARE Payor: [employer] MANAGED MEDICARE / [facility] / Product Type: *No Product type* / Secondary Insurance: N/A Last Physical Therapy Recommendation: (home with ) with to be determined (06/15/24 1028) Plan for discharge is: Home w/ Services Outpatient Agency/Support Group Needs: Homecare agency Agency Choices: [facility] Services: Medication checks, Registered Nurse, Physical Therapy Agency Referrals: pending clinical course and PT/OT recs [facility] [address] [facility] [address] PHONE: [phone] FAX: [phone] Transportation: family or friend will provide Barriers [...] NOTE: OUTCOME SUMMARY: Pt A&O throughout shift. Joe/SUNNY/esau pulled per order/protocol.Pt ambulating well around unit. [...] through: Primary Insurance: [employer] MANAGED MEDICARE Payor: AAR MANAGED MEDICARE / [facility]: [facility] / Product Type: *No Product type* / Secondary Insurance: N/A Plan for discharge is: Home w/ Services Outpatient Agency/Support Group Needs: Homecare agency Agency Choices: [facility]: Medication checks, Registered Nurse, Physical Therapy Agency Referrals: pending clinical course and PT/OT recs [facility] [address] [place] [address] PHONE: [phone] FAX: [phone] Transportation: family or friend will provide Barriers [...] Loja MD - 06/14/2024 8:48 AM EST [facility] Operative Note Patient Name: George Mehta : [id number] MR#: [id number] Case Date: 06/14/2024 Surgeon: Surgeons and Role: * Bobby Loja MD - Primary * Rashi Bass PA - Physician Irrigator Preoperative diagnosis: CAD, MARIALUISA flickering mass on [...] Tissue Soft Tissue Mass SURGICAL PATHOLOGY Bobby oLja MD 06/14/2024 0953 2 : extracardiac mass Tissue Soft Tissue Mass SURGICAL PATHOLOGY Bobby Loja MD 06/14/2024 0954 3 : Tissue Heart, Atrial Appendage, Left SURGICAL PATHOLOGY Bobby Loja MD 06/14/2024 1054 A : Blood Blood, Arterial PLATELET COUNT, FIBRINOGEN (Canceled), HEMOGLOBIN AND HEMATOCRIT, BLOOD Allison Gallagher Raad 06/14/2024 1123 B : Blood Blood, Arterial PROTHROMBIN TIME, APTT Allison Gallagher Raad 06/14/2024 1209 C : Blood Blood, Arterial [...] area. The patient was transported to the [facility] in a critical but stable condition Surgical [...] procedures today and tomorrow. Report called to [facility] - all belongings with patient. 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 INDIVIDUALIZED FALL PREVENTION [...] No Patient is insured through: Primary Insurance: [employer] MANAGED MEDICARE Payor: AAR MANAGED MEDICARE / Plan: [facility] MANAGED MEDICARE COMPLETE / Product Type: *No Product type* / Secondary Insurance: N/A Plan for discharge is: Home w/ Services Outpatient Agency/Support Group Needs: Homecare agency, Agency Choices: [facility]. Home Health Services: Medication checks, Registered Nurse, Physical Therapy Agency Referrals: [facility] [address] [place] [address] RN / PT Routed 06/10 Transportation: family [...] with home health services when medically ready. neighborhood service center director/Cable Tender will continue to follow patient???s progress and remain available if situation changes for coordination of care, psychosocial support and/or discharge planning. Anticipated Date of Discharge: 06/18/2024 Mariia Montero RN CM Extension [phone] * Plan of Care - Migel Javier [...] patient and the CT surgery team by 06/10,patient advocacy will be escalated to address [...] No Patient is insured through: Primary Insurance: [facility] MANAGED MEDICARE Payor: [facility] MANAGED MEDICARE / Plan: [facility] MANAGED MEDICARE COMPLETE / Product Type: *No [...] consult for high risk PCI vs CABG neighborhood service center director/Cable Tender will continue to follow patient???s progress and remain available if situation changes for coordination of care, psychosocial support and/or discharge planning. Anticipated Date of Discharge: 06/11/2024 Mariia Montero RN Extension [phone] * Plan of Care - Becca Hope [...] CABG and to provide a review of termite technician diabetes care. Diabetes History: George Mehta has [...] Breakfast- varies - eggs with khoury or danish muffin Lunch- turkey sandwich Supper- meat and [...] Infusions: heparin (porcine) infusion 1,400 Units/hr (06/06/24 8866) PRN: insulin lispro, potassium chloride ER OR [...] Baumann APRN Endocrinology Diabetes Management Service Pager: [phone] Weekends please page [phone] 80 minute visit was spent in counseling [...] Anesthesia/Sedation Effects (Cardiac Catheterization) Goal: Anesthesia/Sedation Recovery 06/05/2024 06 by Migel Javier RN Outcome: Outcome (s) [...] remote melanoma, and smoker who presented to [facility] last night via EMS after developing acute, severe chest pain while watching TV. Patient was ruled in for STEMI, given TNK, ASA, plavix, heparin gtt, and sent to [facility] for coronary angiography. LHC demonstrated severely calcified left coronary system with notable LCx 75/80% lesions and FLARE MAKER OM1 with ISR with collateral retrograde filling, [...] is large. 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 male admitted with STEMI s/p TNK, [facility] showing multivessel CAD including ISR, no [...] to our service. Signed: Paula Treviño PA-C [facility] Section of Cardiac Surgery Date: 06/03/2024 * Initial Assessments - Catina Estrada MSW - 06/03/2024 10:32 AM EDT Office of Care Management Initial Assessment CHINA Humphrey reviewed record and discussed patient with Care Team. Source of Information: Team, bedside nurse, medical record, and Patient MANUFACTURING LEAD Introduced self/reviewed role; services accepted. Admitted From: Transfer from another hospital Location: [facility] Reason for Hospitalization: Chest Pain while watching TV, doctors said I had a heart attack Past medical History: No past medical history on file. Hospitalizations Within the Past 30 Days: no previous admission in last 30 days Current Decision-Making Capacity: Self If AD's have not been completed the following surrogate would be surrogate decision maker per [place] surrogate decision making law. (Only good for 180 days) Any patient receiving care in [place] must abide by [place] law. The hierarchy for surrogate decision making [...] (i) The agent with financial power of employment attorney or a conservator appointed in accordance [...] w/ his , Mandy, and 2 dogs Zulekia & Kaley). Current Living Arrangements: home/apartment/condo. Accessibility [...] were you homeless or living in a intermediate (including now)?: No In the past 12 months has the electric, gas, oil, or water company threatened [...] in the bathroom) Home Address confirmed as: [address] [place] [address] [address] [facility] [address] Social & Family Supports: All names listed [...] Pertinent/Service Specific Information: Health/Prescription Coverage: Primary Insurance: [facility] MEDICARE Payor: [facility] MEDICARE / Plan: AARP [employer] MANAGED MEDICARE COMPLETE / Product Type: *No Product type* / Secondary Insurance: N/A ; Prescription Coverage: Yes Preferred Pharmacy: [id number] - [facility], [place] - [address] [facility] [address] [place] Status: Patient is a : No Primary Care Provider confirmed: Mauro Berumen MD [phone] Patient/Caregiver Goals of Treatment: Potential Needs for [...] care as indicated. CHINA Min Cardiology, ext. 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 Recommendations: surgical consult for possible [...] GAS ARTERIAL POC Routine 8:39 AM EST TRANSESOPHAGEAL ECHOCARDIOGRAM IN THE OR Routine 06/14/2024 7:20 AM EST Coronary artery disease involving emmonak coronary artery of emmonak heart without angina pectoris POC, GLUCOSE Routine [...] * POC, GLUCOSE (06/21/2024 3:51 AM EST) Glucometer, POC 142 65 - 199 mg/dL 06/21/2024 3:51 AM EST [facility] Comment:Supplemental ranges: <140 mg/dL before meals <180 mg/dL all other times of the day. Blood CAPILLARY BLOOD / Unknown 06/21/2024 3:51 AM EST 06/21/2024 3:51 AM EST Bobby Loja MD POINT OF CARE TEST O RDERABLES [facility] [place] [address] * (ABNORMAL) Basic Metabolic Panel (06/21/2024 2:09 AM EST) Glucose 169 65 - 199 mg/dL 06/21/2024 3:10 AM EST [facility] Comment:Glucose Concentratio n >=200 mg/dL plus symptoms is consistent with Diabetes Mellitus. Blood Urea Nitrogen 27(H) 10 - 20 mg/dL 06/21/2024 3:10 AM EST [facility] Creatinine 1.24 0.80 - 1.50 mg/dL 06/21/2024 3:10 AM EST [facility] Sodium 138 135 - 145 mMol/L 06/21/2024 3:[address] [facility] Potassium 4.2 3.5 - 5.0 mMol/L 06/21/2024 3:[address] [facility] Chloride 100 98 - 107 mMol/L 06/21/2024 3:10 [address] [facility] Carbon Dioxide 27 22 - 31 mMol/L 06/21/2024 3:10 [address] [facility] Anion Gap 11 5 - 15 mMol/L 06/21/2024 3:10 AM [facility] Calcium 8.7 8.5 - 10.5 mg/dL 06/21/2024 3:10 [address] [facility] Est Glomerular Filtration Rate - Male 64 mL/min/1. 73 m?? 06/21/2024 3:10 [address] [facility] Comment: This patient's estimated GFR [...] EST 06/21/2024 2:37 AM EST Keila Hanley TOOL MAINTENANCE TECHNICIAN CHEMISTRY ORDERABL ES [facility] [place] [address] * POC, GLUCOSE (06/21/2024 12:04 AM EST) Glucometer, POC 157 65 - 199 mg/dL 06/21/2024 12:04 AM EST [facility] Comment:Supplemental ranges: <140 mg/dL before meals <180 mg/dL all other times of the day. Blood CAPILLARY BLOOD / Unknown 06/21/2024 12:04 AM EST 06/21/2024 12:04 AM EST Bobby Loja MD POINT OF CARE TEST O NIKA [facility] [place] [address] * POC, GLUCOSE (06/20/2024 11:14 PM EST) Glucometer, POC 67 65 - 199 mg/dL 06/20/2024 11:14 PM EST [facility] Comment:Supplemental ranges: <140 mg/dL before meals <180 mg/dL all other times of the day. Blood CAPILLARY BLOOD / Unknown 06/20/2024 11:14 PM EST 06/20/2024 11:14 PM EST Bobby Loja MD POINT OF CARE TEST O NIKA Performing Organization Address City/[facility]/ZIP Co de Phone Number [facility] [place] [address] * POC, GLUCOSE (06/20/2024 7:16 PM EST) Glucometer, POC 132 65 - 199 mg/dL 06/20/2024 7:16 PM EST [facility] Comment:Supplemental ranges: <140 mg/dL before meals <180 mg/dL all other times of the day. Blood CAPILLARY BLOOD / Unknown 06/20/2024 7:16 PM EST 06/20/2024 7:16 PM EST Bobby Loja MD POINT OF CARE TEST O NIKA [facility] [place] [address] * POC, GLUCOSE (06/20/2024 3:39 PM EST) Glucometer, POC 124 65 - 199 mg/dL 06/20/2024 3:40 PM EST [facility] Comment:Supplemental ranges: <140 mg/dL before meals <180 mg/dL all other times of the day. Blood CAPILLARY BLOOD / Unknown 06/20/2024 3:39 PM EST 06/20/2024 3:40 PM EST Bobby Loja MD POINT OF CARE TEST O NIKA Performing Organization Address City/[facility]/ZIP Co de Phone Number [facility] [place] [address] * POC, GLUCOSE (06/20/2024 12:02 PM EST) Glucometer, POC 173 65 - 199 mg/dL 06/20/2024 12:03 PM EST [facility] Comment:Supplemental ranges: <140 mg/dL before meals <180 mg/dL all other times of the day. Blood CAPILLARY BLOOD / Unknown 06/20/2024 12:02 PM EST 06/20/2024 12:03 PM EST Bobby Loja MD POINT OF CARE TEST O NIKA [facility] [place] [address] * POC, GLUCOSE (06/20/2024 7:10 AM EST) Glucometer, POC 130 65 - 199 mg/dL 06/20/2024 7:11 AM EST [facility] Comment:Supplemental ranges: <140 mg/dL before meals <180 mg/dL all other times of the day. Blood CAPILLARY BLOOD / Unknown 06/20/2024 7:10 AM EST 06/20/2024 7:11 AM EST Bobby Loja MD POINT OF CARE TEST O RDERABLES [facility] [place] [address] * (ABNORMAL) Basic Metabolic Panel (06/20/2024 2:28 AM EST) Glucose 79 65 - 199 mg/dL 06/20/2024 3:06 AM [facility] Comment:Glucose Concentratio n >=200 mg/dL plus symptoms is consistent with Diabetes Mellitus. Blood Urea Nitrogen 38(H) 10 - 20 mg/dL 06/20/2024 3:06 AM [facility] Creatinine 1.39 0.80 - 1.50 mg/dL 06/20/2024 3:06 AM [facility] Sodium 137 135 - 145 mMol/L 06/20/2024 3:06 AM [facility] Potassium 3.6 3.5 - 5.0 mMol/L 06/20/2024 3:06 AM [facility] Chloride 100 98 - 107 mMol/L 06/20/2024 3:06 AM [facility] Carbon Dioxide 29 22 - 31 mMol/L 06/20/2024 3:06 AM [facility] Anion Gap 8 5 - 15 mMol/L 06/20/2024 3:06 AM [facility] Calcium 8.4(L) 8.5 - 10.5 mg/dL 06/20/2024 3:06 [address] [facility] Est Glomerular Filtration Rate - Male 56 mL/min/1. 73 m?? 06/20/2024 3:06 [address] [facility] Comment: This patient's estimated GFR [...] EST Keila Hanley APRN CHEMISTRY ORDERABL ES [facility] [place] [address] * POC, GLUCOSE (06/20/2024 12:32 AM EST) Glucometer, POC 86 65 - 199 mg/dL 06/20/2024 12:32 AM EST [facility] Comment:Supplemental ranges: <140 mg/dL before meals <180 mg/dL all other times of the day. Blood CAPILLARY BLOOD / Unknown 06/20/2024 12:32 AM EST 06/20/2024 12:32 AM EST Bobby Loja MD POINT OF CARE TEST O NIKA Performing Organization Address City/[facility]/ZIP Co de Phone Number [facility] [address] * (ABNORMAL) POC, GLUCOSE (06/20/2024 12:02 AM EST) Glucometer, POC 59(L) 65 - 199 mg/dL 06/20/2024 12:02 AM EST [facility] Comment:Supplemental ranges: <140 mg/dL before meals <180 mg/dL all other times of the day. Blood CAPILLARY BLOOD / Unknown 06/20/2024 12:02 AM EST 06/20/2024 12:03 AM EST Bobby Loja MD POINT OF CARE TEST O NIKA [facility] [place] [address] * POC, GLUCOSE (06/19/2024 8:15 PM EST) Glucometer, POC 131 65 - 199 mg/dL 06/19/2024 8:15 PM EST [facility] Comment:Supplemental ranges: <140 mg/dL before meals <180 mg/dL all other times of the day. Blood CAPILLARY BLOOD / Unknown 06/19/2024 8:15 PM EST 06/19/2024 8:15 PM EST Bobby Loja MD POINT OF CARE TEST O NIKA [facility] [place] [address] * POC, GLUCOSE (06/19/2024 6:01 PM EST) Glucometer, POC 129 65 - 199 mg/dL 06/19/2024 6:01 PM EST [facility] Comment:Supplemental ranges: <140 mg/dL before meals <180 mg/dL all other times of the day. Blood CAPILLARY BLOOD / Unknown 06/19/2024 6:01 PM EST 06/19/2024 6:02 PM EST Bobby Loja MD POINT OF CARE TEST O NIKA Performing Organization Address City/[facility]/ZIP Co de Phone Number [facility] [place] [address] * POC, GLUCOSE (06/19/2024 4:51 PM EST) Glucometer, POC 155 65 - 199 mg/dL 06/19/2024 4:51 PM EST [facility] Comment:Supplemental ranges: <140 mg/dL before meals <180 mg/dL all other times of the day. Blood CAPILLARY BLOOD / Unknown 06/19/2024 4:51 PM EST 06/19/2024 4:51 PM EST Bobby Loja MD POINT OF CARE TEST O NIKA [facility] [place] [address] * POC, GLUCOSE (06/19/2024 12:37 PM EST) Glucometer, POC 136 65 - 199 mg/dL 06/19/2024 12:37 PM EST [facility] Comment:Supplemental ranges: <140 mg/dL before meals <180 mg/dL all other times of the day. Blood CAPILLARY BLOOD / Unknown 06/19/2024 12:37 PM EST 06/19/2024 12:37 PM EST Bobby Loja MD POINT OF CARE TEST O NIKA Performing Organization Address City/[facility]/ZIP Co de Phone Number [facility] [place] [address] * POC, GLUCOSE (06/19/2024 11:20 AM EST) Glucometer, POC 185 65 - 199 mg/dL 06/19/2024 11:21 AM EST [facility] Comment:Supplemental ranges: <140 mg/dL before meals <180 mg/dL all other times of the day. Blood CAPILLARY BLOOD / Unknown 06/19/2024 11:20 AM EST 06/19/2024 11:21 AM EST Bobby Loja MD POINT OF CARE TEST O NIKA [facility] [place] [address] * POC, GLUCOSE (06/19/2024 7:21 AM EST) Glucometer, POC 125 65 - 199 mg/dL 06/19/2024 7:21 AM EST [facility] Comment:Supplemental ranges: <140 mg/dL before meals <180 mg/dL all other times of the day. Blood CAPILLARY BLOOD / Unknown 06/19/2024 7:21 AM EST 06/19/2024 7:22 AM EST Bobby Loja MD POINT OF CARE TEST O NIKA Performing Organization Address [facility] Co de Phone Number [facility] [place] [address] * POC, GLUCOSE (06/19/2024 4:52 AM EST) Glucometer, POC 125 65 - 199 mg/dL 06/19/2024 4:52 AM EST [facility] Comment:Supplemental ranges: <140 mg/dL before meals <180 mg/dL all other times of the day. Blood CAPILLARY BLOOD / Unknown 06/19/2024 4:52 AM EST 06/19/2024 4:52 AM EST Bobby Loja MD POINT OF CARE TEST O NIKA Performing Organization Address [facility] Co de Phone Number [facility] [place] [address] * POC, GLUCOSE (06/19/2024 4:13 AM EST) Glucometer, POC 67 65 - 199 mg/dL 06/19/2024 4:13 AM EST [facility] Comment:Supplemental ranges: <140 mg/dL before meals <180 mg/dL all other times of the day. Blood CAPILLARY BLOOD / Unknown 06/19/2024 4:13 AM EST 06/19/2024 4:13 AM EST Bobby Loja MD POINT OF CARE TEST O NIKA Performing Organization Address [facility] Co de Phone Number [facility] [address] * (ABNORMAL) POC, GLUCOSE (06/19/2024 3:48 AM EST) Glucometer, POC 51(LLL) 65 - 199 mg/dL 06/19/2024 3:48 AM EST [facility] Comment:Supplemental ranges: <140 mg/dL before meals <180 mg/dL all other times of the day. Blood CAPILLARY BLOOD / Unknown 06/19/2024 3:48 AM EST 06/19/2024 3:48 AM EST Bobby Loja MD POINT OF CARE TEST O RDERABLES [facility] [place] [address] * (ABNORMAL) Basic Metabolic Panel (06/19/2024 3:44 AM EST) Glucose 53(LLL) 65 - 199 mg/dL 06/19/2024 4:48 AM EST [facility] Comment:Glucose Concentratio n >=200 mg/dL plus symptoms is consistent with Diabetes Mellitus. Blood Urea Nitrogen 42(H) 10 - 20 mg/dL 06/19/2024 4:48 AM [facility] Creatinine 1.29 0.80 - 1.50 mg/dL 06/19/2024 4:48 AM [facility] Sodium 138 135 - 145 mMol/L 06/19/2024 4:48 AM [facility] Potassium 3.6 3.5 - 5.0 mMol/L 06/19/2024 4:48 AM [facility] Chloride 100 98 - 107 mMol/L 06/19/2024 4:48 AM [facility] Carbon Dioxide 29 22 - 31 mMol/L 06/19/2024 4:48 AM [facility] Anion Gap 9 5 - 15 mMol/L 06/19/2024 4:48 AM [facility] Calcium 8.8 8.5 - 10.5 mg/dL 06/19/2024 4:48 AM [facility] Est Glomerular Filtration Rate - Male 61 mL/min/1. 73 m?? 06/19/2024 4:48 AM [facility] Comment: This patient's estimated GFR [...] APRN CHEMISTRY ORDERABL ES Performing Organization Address City/[facility]/ZIP Co de Phone Number [facility] [place] [address] * POC, GLUCOSE (06/19/2024 12:23 AM EST) Glucometer, POC 82 65 - 199 mg/dL 06/19/2024 12:23 AM EST [facility] Comment:Supplemental ranges: <140 mg/dL before meals <180 mg/dL all other times of the day. Blood CAPILLARY BLOOD / Unknown 06/19/2024 12:23 AM EST 06/19/2024 12:23 AM EST Bobby Loja MD POINT OF CARE TEST O RDBECKIE Performing Organization Address City/[facility]/ZIP Co de Phone Number [facility] [place] [address] * POC, GLUCOSE (06/18/2024 11:08 PM EST) Glucometer, POC 73 65 - 199 mg/dL 06/18/2024 11:08 PM EST [facility] Comment:Supplemental ranges: <140 mg/dL before meals <180 mg/dL all other times of the day. Blood CAPILLARY BLOOD / Unknown 06/18/2024 11:08 PM EST 06/18/2024 11:08 PM EST Bobby Loja MD POINT OF CARE TEST O NIKA [facility] [place] [address] * POC, GLUCOSE (06/18/2024 7:32 PM EST) Glucometer, POC 167 65 - 199 mg/dL 06/18/2024 7:32 PM EST [facility] Comment:Supplemental ranges: <140 mg/dL before meals <180 mg/dL all other times of the day. Blood CAPILLARY BLOOD / Unknown 06/18/2024 7:32 PM EST 06/18/2024 7:32 PM EST Bobby Loja MD POINT OF CARE TEST O NIKA Performing Organization Address City/[facility]/ZIP Co de Phone Number [facility] [place] [address] * POC, GLUCOSE (06/18/2024 6:08 PM EST) Glucometer, POC 140 65 - 199 mg/dL 06/18/2024 6:09 PM EST [facility] Comment:Supplemental ranges: <140 mg/dL before meals <180 mg/dL all other times of the day. Blood CAPILLARY BLOOD / Unknown 06/18/2024 6:08 PM EST 06/18/2024 6:09 PM EST Bobby Loja MD POINT OF CARE TEST O NIKA [facility] [place] [address] * POC, GLUCOSE (06/18/2024 4:17 PM EST) Glucometer, POC 144 65 - 199 mg/dL 06/18/2024 4:17 PM EST [facility] Comment:Supplemental ranges: <140 mg/dL before meals <180 mg/dL all other times of the day. Blood CAPILLARY BLOOD / Unknown 06/18/2024 4:17 PM EST 06/18/2024 4:17 PM EST Bobby Loja MD POINT OF CARE TEST O RDERABLES Performing Organization Address [facility] Co de Phone Number [facility] [place] [address] * POC, GLUCOSE (06/18/2024 12:09 PM EST) Glucometer, POC 180 65 - 199 mg/dL 06/18/2024 12:09 PM EST [facility] Comment:Supplemental ranges: <140 mg/dL before meals <180 mg/dL all other times of the day. Blood CAPILLARY BLOOD / Unknown 06/18/2024 12:09 PM EST 06/18/2024 12:09 PM EST Bobby Loja MD POINT OF CARE TEST O NIKA Performing Organization Address [facility] Co de Phone Number [facility] [place] [address] * POC, GLUCOSE (06/18/2024 7:49 AM EST) Glucometer, POC 125 65 - 199 mg/dL 06/18/2024 7:50 AM EST [facility] Comment:Supplemental ranges: <140 mg/dL before meals <180 mg/dL all other times of the day. Blood CAPILLARY BLOOD / Unknown 06/18/2024 7:49 AM EST 06/18/2024 7:50 AM EST Bobby Loja MD POINT OF CARE TEST O NIKA Performing Organization Address [facility] Co de Phone Number [facility] [place] [address] * (ABNORMAL) Basic Metabolic Panel (06/18/2024 4:19 AM EST) Glucose 103 65 - 199 mg/dL 06/18/2024 5:03 AM EST [facility] Comment:Glucose Concentratio n >=200 mg/dL plus symptoms is consistent with Diabetes Mellitus. Blood Urea Nitrogen 43(H) 10 - 20 mg/dL 06/18/2024 5:03 AM EST [facility] Creatinine 1.45 0.80 - 1.50 mg/dL 06/18/2024 5:03 AM EST [facility] Sodium 131(L) 135 - 145 mMol/L 06/18/2024 5:03 AM [facility] Potassium 4.2 3.5 - 5.0 mMol/L 06/18/2024 5:03 AM [facility] Chloride 97(L) 98 - 107 mMol/L 06/18/2024 5:03 AM [facility] [facility] Carbon Dioxide 25 22 - 31 mMol/L 06/18/2024 5:03 AM [facility] Anion Gap 9 5 - 15 mMol/L 06/18/2024 5:03 AM [facility] Calcium 8.5 8.5 - 10.5 mg/dL 06/18/2024 5:03 AM [facility] Est Glomerular Filtration Rate - Male 53 mL/min/1. 73 m?? 06/18/2024 5:03 AM EST [facility] Comment: This patient's estimated GFR [...] AM EST 06/18/2024 4:31 AM EST Keila Dayan CHOU CHEMISTRY ORDERABL ES [facility] [place] [address] * POC, GLUCOSE (06/18/2024 3:50 AM EST) Glucometer, POC 99 65 - 199 mg/dL 06/18/2024 3:51 AM EST [facility] Comment:Supplemental ranges: <140 mg/dL before meals <180 mg/dL all other times of the day. Blood CAPILLARY BLOOD / Unknown 06/18/2024 3:50 AM EST 06/18/2024 3:51 AM EST Bobby Loja MD POINT OF CARE TEST O NIKA [facility] [place] [address] * POC, GLUCOSE (06/17/2024 11:10 PM EST) Glucometer, POC 92 65 - 199 mg/dL 06/17/2024 11:10 PM EST [facility] Comment:Supplemental ranges: <140 mg/dL before meals <180 mg/dL all other times of the day. Blood CAPILLARY BLOOD / Unknown 06/17/2024 11:10 PM EST 06/17/2024 11:10 PM EST Bobby Loja MD POINT OF CARE TEST O NIKA Performing Organization Address [facility]/ZIP Co de Phone Number [facility] [place] [address] * POC, GLUCOSE (06/17/2024 7:54 PM EST) Glucometer, POC 126 65 - 199 mg/dL 06/17/2024 7:54 PM EST [facility] Comment:Supplemental ranges: <140 mg/dL before meals <180 mg/dL all other times of the day. Blood CAPILLARY BLOOD / Unknown 06/17/2024 7:54 PM EST 06/17/2024 7:54 PM EST Bobby Loja MD POINT OF CARE TEST O NIKA [facility] [place] [address] * POC, GLUCOSE (06/17/2024 4:07 PM EST) Glucometer, POC 141 65 - 199 mg/dL 06/17/2024 4:12 PM EST [facility] Comment:Supplemental ranges: <140 mg/dL before meals <180 mg/dL all other times of the day. Blood CAPILLARY BLOOD / Unknown 06/17/2024 4:07 PM EST 06/17/2024 4:12 PM EST Bobby Loja MD POINT OF CARE TEST O RDERABLES [facility] [place] [address] * XR Chest PA & Lateral (Generic) (06/17/2024 1:46 PM EST) WORKSTATION ID [id number] [facility] Anatomical Region Laterality Modality Chest N/A Digital [...] who have questions please contact the health client care manager that requested your imaging first. ? Narrative 06/17/2024 4:49 PM EST EXAMINATION: XR [...] patients who have questions please contactthe health client care manager that requested your imaging first. Electronically signed by: Josselyn Spence MD, [facility]([phone]), at 06/17/2024 4:49 PM [facility] * (ABNORMAL) POC, GLUCOSE (06/17/2024 11:04 AM EST) [facility] Glucometer, POC 245(H) 65 - 199 mg/dL 06/17/2024 11:04 AM EST [facility] Comment:Supplemental ranges: <140 mg/dL before meals <180 mg/dL all other times of the day. Blood CAPILLARY BLOOD / Unknown 06/17/2024 11:04 AM EST 06/17/2024 11:04 AM EST Bobby Loja MD POINT OF CARE TEST O RDBECKIE Performing Organization Address [facility]/ZIP Co de Phone Number [facility] [place] [address] * POC, GLUCOSE (06/17/2024 7:49 AM EST) Glucometer, POC 141 65 - 199 mg/dL 06/17/2024 7:55 AM EST [facility] Comment:Supplemental ranges: <140 mg/dL before meals <180 mg/dL all other times of the day. Blood CAPILLARY BLOOD / Unknown 06/17/2024 7:49 AM EST 06/17/2024 7:55 AM EST Bobby Loja MD POINT OF CARE TEST O NIKA Performing Organization Address [facility] Co de Phone Number [facility] [place] [address] * POC, GLUCOSE (06/17/2024 4:16 AM EST) Glucometer, POC 139 65 - 199 mg/dL 06/17/2024 4:16 AM EST [facility] Comment:Supplemental ranges: <140 mg/dL before meals <180 mg/dL all other times of the day. Blood CAPILLARY BLOOD / Unknown 06/17/2024 4:16 AM EST 06/17/2024 4:17 AM EST Bobby Loja MD POINT OF CARE TEST O NIKA Performing Organization Address City/[facility]/ZIP Co de Phone Number [facility] [place] [address] * Lactate, Whole Blood (06/17/2024 2:39 AM EST) Lactate, Whole Blood 1.3 0.5 - 2.2 mmol/L 06/17/2024 2:46 AM EST [facility] Blood VENOUS BLOOD SPECIMEN / Unknown Venipuncture / Unknown 06/17/2024 2:39 AM EST 06/17/2024 2:43 AM EST Bobby Loja MD CHEMISTRY ORDERABLES [facility] [place] [address] * (ABNORMAL) Hemogram (06/17/2024 2:39 AM EST) White Blood Cell 13.53(H) 4.00 - 9.50 x10(3)/mc L 06/17/2024 2:53 AM [facility] Red Blood Cell 3.55(L) 4.58 - 5.54 x10(6)/mc L 06/17/2024 2:53 AM [facility] Hemoglobin 10.8(L) 13.7 - 16.5 g/dL 06/17/2024 2:53 AM [facility] Hematocrit 33.0(L) 40.5 - 48.5 % 06/17/2024 2:53 AM [facility] Mean Cell Volume 93.0 82.9 - 93.1 fL 06/17/2024 2:53 AM [facility] Mean Cell Hemoglobin 30.4 27.5 - 32.1 pg 06/17/2024 2:53 AM [facility] Mean Cell Hemoglobin Concentration 32.7 32.0 - 35.7 g/dL 06/17/2024 2:53 AM [facility] Platelet 101(L) 145 - 357 x10(3)/mc L 06/17/2024 2:53 AM [facility] Mean Platelet Volume 10.4 7.6 - 12.9 fL 06/17/2024 2:53 AM [facility] RDW Standard Deviation 48.4(H) 36.0 - 45.0 fL 06/17/2024 2:53 AM [facility] RDW coefficient of variation 14.1(H) 11.4 - 13.8 % 06/17/2024 2:53 AM [facility] NRBC% auto 0.0 % 06/17/2024 2:53 AM EST [facility] NRBC Absolute <0.01 <0.01 x10(3)/mc L 06/17/2024 2:53 AM [facility] Blood VENOUS BLOOD SPECIMEN / Unknown Venipuncture / Unknown 06/17/2024 2:39 AM EST 06/17/2024 2:43 AM EST Bobby Loja MD HEMATOLOGY ORDERABLE S [facility] [address] * (ABNORMAL) Basic Metabolic Panel (06/17/2024 2:39 AM EST) Glucose 149 65 - 199 mg/dL 06/17/2024 3:14 AM [facility] Comment:Glucose Concentratio n >=200 mg/dL plus symptoms is consistent with Diabetes Mellitus. Blood Urea Nitrogen 42(H) 10 - 20 mg/dL 06/17/2024 3:14 AM [facility] Creatinine 1.52(H) 0.80 - 1.50 mg/dL 06/17/2024 3:14 AM [facility] Sodium 133(L) 135 - 145 mMol/L 06/17/2024 3:14 AM [facility] Potassium 4.5 3.5 - 5.0 mMol/L 06/17/2024 3:14 AM [facility] Chloride 101 98 - 107 mMol/L 06/17/2024 3:14 AM [facility] Carbon Dioxide 23 22 - 31 mMol/L 06/17/2024 3:14 AM [facility] Anion Gap 9 5 - 15 mMol/L 06/17/2024 3:14 AM [facility] Calcium 8.8 8.5 - 10.5 mg/dL 06/17/2024 3:14 AM [facility] Est Glomerular Filtration Rate - Male 50 mL/min/1. 73 m?? 06/17/2024 3:14 AM EST [facility] Comment: This patient's estimated GFR [...] Loja MD CHEMISTRY ORDERABLES Performing Organization Address [facility] Co de Phone Number [facility] [place] [address] * (ABNORMAL) POC, GLUCOSE (06/17/2024 12:13 AM EST) Glucometer, POC 211(H) 65 - 199 mg/dL 06/17/2024 12:13 AM EST [facility] Comment:Supplemental ranges: <140 mg/dL before meals <180 mg/dL all other times of the day. Blood CAPILLARY BLOOD / Unknown 06/17/2024 12:13 AM EST 06/17/2024 12:14 AM EST Bobby Loja MD POINT OF CARE TEST O RDERABLES Performing Organization Address City/[facility]/ZIP Co de Phone Number [facility] [place] [address] * (ABNORMAL) POC, GLUCOSE (06/16/2024 7:22 PM EST) Glucometer, POC 229(H) 65 - 199 mg/dL 06/16/2024 7:22 PM EST [facility] Comment:Supplemental ranges: <140 mg/dL before meals <180 mg/dL all other times of the day. Blood CAPILLARY BLOOD / Unknown 06/16/2024 7:22 PM EST 06/16/2024 7:22 PM EST Narrative Authorizing Provider Result Saranya Loja MD POINT OF CARE TEST O RDERABLES Performing Organization Address City/[facility]/ZIP Co de Phone Number [facility] [place] [address] * (ABNORMAL) POC, GLUCOSE (06/16/2024 6:14 PM EST) Glucometer, POC 220(H) 65 - 199 mg/dL 06/16/2024 6:14 PM EST [facility] Comment:Supplemental ranges: <140 mg/dL before meals <180 mg/dL all other times of the day. Blood CAPILLARY BLOOD / Unknown 06/16/2024 6:14 PM EST 06/16/2024 6:14 PM EST Narrative Authorizing Provider Result Saranya Loja MD POINT OF CARE TEST O RDNICOLLEBLES Performing Organization Address City/[facility]/ZIP Co de Phone Number [facility] [place] [address] * Lactate, Whole Blood (06/16/2024 6:14 PM EST) Lactate, Whole Blood 1.8 0.5 - 2.2 mmol/L 06/16/2024 6:27 PM EST [facility] Blood VENOUS BLOOD SPECIMEN / Unknown Venipuncture / Unknown 06/16/2024 6:14 PM EST 06/16/2024 6:25 PM EST Narrative Authorizing Provider Result Saranya Loja MD CHEMISTRY ORDERABLES Performing Organization Address City/[facility]/ZIP Co de Phone Number [facility] [place] [address] * (ABNORMAL) POC, GLUCOSE (06/16/2024 4:14 PM EST) Glucometer, POC 240(H) 65 - 199 mg/dL 06/16/2024 4:14 PM EST [facility] Comment:Supplemental ranges: <140 mg/dL before meals <180 mg/dL all other times of the day. Blood CAPILLARY BLOOD / Unknown 06/16/2024 4:14 PM EST 06/16/2024 4:14 PM EST Bobby Loja MD POINT OF CARE TEST O NIKA Performing Organization Address [facility] Co de Phone Number [facility] [place] [address] * POC, GLUCOSE (06/16/2024 11:49 AM EST) Glucometer, POC 199 65 - 199 mg/dL 06/16/2024 11:49 AM EST [facility] Comment:Supplemental ranges: <140 mg/dL before meals <180 mg/dL all other times of the day. Blood CAPILLARY BLOOD / Unknown 06/16/2024 11:49 AM EST 06/16/2024 11:49 AM EST Bobby Loja MD POINT OF CARE TEST Abimael MAHER Performing Organization Address [facility] Co de Phone Number [facility] [address] * (ABNORMAL) Hemogram (06/16/2024 11:44 AM EST) White Blood Cell 17.91(H) 4.00 - 9.50 x10(3)/mc L 06/16/2024 12:25 PM EST [facility] Red Blood Cell 3.47(L) 4.58 - 5.54 x10(6)/mc L 06/16/2024 12:25 PM EST [facility] Hemoglobin 10.5(L) 13.7 - 16.5 g/dL 06/16/2024 12:25 PM [facility] Hematocrit 33.1(L) 40.5 - 48.5 % 06/16/2024 12:25 PM EST [facility] Mean Cell Volume 95.4(H) 82.9 - 93.1 fL 06/16/2024 12:25 PM [facility] Mean Cell Hemoglobin 30.3 27.5 - 32.1 pg 06/16/2024 12:25 PM [facility] Mean Cell Hemoglobin Concentration 31.7(L) 32.0 - 35.7 g/dL 06/16/2024 12:25 PM [facility] Platelet 101(L) 145 - 357 x10(3)/mc L 06/16/2024 12:25 PM [facility] Mean Platelet Volume 10.6 7.6 - 12.9 fL 06/16/2024 12:25 PM [facility] RDW Standard Deviation 49.5(H) 36.0 - 45.0 fL 06/16/2024 12:25 PM [facility] RDW coefficient of variation 14.2(H) 11.4 - 13.8 % 06/16/2024 12:25 PM [facility] NRBC% auto 0.0 % 06/16/2024 12:25 PM [facility] NRBC Absolute <0.01 <0.01 x10(3)/mc L 06/16/2024 12:25 PM [facility] Blood VENOUS BLOOD SPECIMEN / Unknown Venipuncture / Unknown 06/16/2024 11:44 AM EST 06/16/2024 12:03 PM EST Bobby Loja MD HEMATOLOGY ORDERABLE S [facility] [address] * Lactate, Whole Blood (06/16/2024 9:02 AM EST) Lactate, Whole Blood 1.8 0.5 - 2.2 mmol/L 06/16/2024 9:19 AM EST [facility] Blood VENOUS BLOOD SPECIMEN / Unknown Venipuncture / Unknown 06/16/2024 9:02 AM EST 06/16/2024 9:17 AM EST Narrative Authorizing Provider Result Saranya Loja MD CHEMISTRY ORDERABLES Performing Organization Address [facility] Co de Phone Number [facility] [place] [address] * POC, GLUCOSE (06/16/2024 7:44 AM EST) Glucometer, POC 129 65 - 199 mg/dL 06/16/2024 7:44 AM EST [facility] Comment:Supplemental ranges: <140 mg/dL before meals <180 mg/dL all other times of the day. Blood CAPILLARY BLOOD / Unknown 06/16/2024 7:44 AM EST 06/16/2024 7:44 AM EST Narrative Authorizing Provider Result Saranya Loja MD POINT OF CARE TEST O RDERABLES Performing Organization Address [facility] Phone Number [facility] [place] [address] * POC, GLUCOSE (06/16/2024 4:01 AM EST) Glucometer, POC 158 65 - 199 mg/dL 06/16/2024 4:01 AM EST [facility] Comment:Supplemental ranges: <140 mg/dL before meals <180 mg/dL all other times of the day. Blood CAPILLARY BLOOD / Unknown 06/16/2024 4:01 AM EST 06/16/2024 4:01 AM EST Narrative Authorizing Provider Result Saranya Loja MD POINT OF CARE TEST O RDERABLES Performing Organization Address [facility] Co de Phone Number [facility] [place] [address] * (ABNORMAL) Basic Metabolic Panel (06/16/2024 2:23 AM EST) Glucose 177 65 - 199 mg/dL 06/16/2024 3:13 AM EST [facility] Comment:Glucose Concentratio n >=200 mg/dL plus symptoms is consistent with Diabetes Mellitus. Blood Urea Nitrogen 37(H) 10 - 20 mg/dL 06/16/2024 3:13 AM [facility] Creatinine 2.10(H) 0.80 - 1.50 mg/dL 06/16/2024 3:13 AM [facility] Sodium 132(L) 135 - 145 mMol/L 06/16/2024 3:13 AM [facility] Potassium 4.5 3.5 - 5.0 mMol/L 06/16/2024 3:13 AM [facility] Chloride 99 98 - 107 mMol/L 06/16/2024 3:13 AM [facility] Carbon Dioxide 22 22 - 31 mMol/L 06/16/2024 3:13 AM [facility] Anion Gap 11 5 - 15 mMol/L 06/16/2024 3:13 AM [facility] Calcium 9.0 8.5 - 10.5 mg/dL 06/16/2024 3:13 AM [facility] Est Glomerular Filtration Rate - Male 34 mL/min/1. 73 m?? 06/16/2024 3:13 AM [facility] Comment: This patient's estimated GFR [...] AM EST Bobby Loja MD CHEMISTRY ORDERABLES [facility] [place] [id number] * POC, GLUCOSE (06/16/2024 2:21 AM EST) Glucometer, POC 176 65 - 199 mg/dL 06/16/2024 2:31 AM EST [facility] Comment:Supplemental ranges: <140 mg/dL before meals <180 mg/dL all other times of the day. Blood CAPILLARY BLOOD / Unknown 06/16/2024 2:21 AM EST 06/16/2024 2:31 AM EST Bobby Loja MD POINT OF CARE TEST O NIKA Performing Organization Address City/[facility] Co de Phone Number [facility] [place] [address] * (ABNORMAL) POC, GLUCOSE (06/16/2024 12:09 AM EST) Glucometer, POC 222(H) 65 - 199 mg/dL 06/16/2024 12:09 AM EST [facility] Comment:Supplemental ranges: <140 mg/dL before meals <180 mg/dL all other times of the day. Blood CAPILLARY BLOOD / Unknown 06/16/2024 12:09 AM EST 06/16/2024 12:09 AM EST Bobby Loja MD POINT OF CARE TEST O NIKA [facility] [place] [address] * (ABNORMAL) POC, GLUCOSE (06/15/2024 10:07 PM EST) Glucometer, POC 320(H) 65 - 199 mg/dL 06/15/2024 10:07 PM EST [facility] Comment:Supplemental ranges: <140 mg/dL before meals <180 mg/dL all other times of the day. Blood CAPILLARY BLOOD / Unknown 06/15/2024 10:07 PM EST 06/15/2024 10:07 PM EST Bobby Loja MD POINT OF CARE TEST O RDERAPIETER Performing Organization Address [facility] Co de Phone Number [facility] [place] [address] * (ABNORMAL) POC, GLUCOSE (06/15/2024 7:56 PM EST) Glucometer, POC 304(H) 65 - 199 mg/dL 06/15/2024 7:56 PM EST [facility] Comment:Supplemental ranges: <140 mg/dL before meals <180 mg/dL all other times of the day. Blood CAPILLARY BLOOD / Unknown 06/15/2024 7:56 PM EST 06/15/2024 7:56 PM EST Bobby Loja MD POINT OF CARE TEST O NIKA Performing Organization Address [facility] de Phone Number [facility] [place] [address] * (ABNORMAL) POC, GLUCOSE (06/15/2024 7:52 PM EST) Glucometer, POC 288(H) 65 - 199 mg/dL 06/15/2024 7:52 PM EST [facility] Comment:Supplemental ranges: <140 mg/dL before meals <180 mg/dL all other times of the day. Blood CAPILLARY BLOOD / Unknown 06/15/2024 7:52 PM EST 06/15/2024 7:52 PM EST Bobby Loja MD POINT OF CARE TEST O NIKA Performing Organization Address [facility] Co de Phone Number [facility] [place] [address] * POC, GLUCOSE (06/15/2024 4:21 PM EST) Glucometer, POC 192 65 - 199 mg/dL 06/15/2024 4:21 PM EST [facility] Comment:Supplemental ranges: <140 mg/dL before meals <180 mg/dL all other times of the day. Blood CAPILLARY BLOOD / Unknown 06/15/2024 4:21 PM EST 06/15/2024 4:21 PM EST Bobby Loja MD POINT OF CARE TEST O NIKA Performing Organization Address [facility] Co de Phone Number [facility] [place] [address] * POC, GLUCOSE (06/15/2024 3:27 PM EST) Glucometer, POC 155 65 - 199 mg/dL 06/15/2024 3:27 PM EST [facility] Comment:Supplemental ranges: <140 mg/dL before meals <180 mg/dL all other times of the day. Blood CAPILLARY BLOOD / Unknown 06/15/2024 3:27 PM EST 06/15/2024 3:27 PM EST Bobby Loja MD POINT OF CARE TEST O NIKA Performing Organization Address [facility] Co de Phone Number [facility] [place] [address] * POC, GLUCOSE (06/15/2024 2:23 PM EST) Glucometer, POC 160 65 - 199 mg/dL 06/15/2024 2:23 PM EST [facility] Comment:Supplemental ranges: <140 mg/dL before meals <180 mg/dL all other times of the day. Blood CAPILLARY BLOOD / Unknown 06/15/2024 2:23 PM EST 06/15/2024 2:23 PM EST Bobby Loja MD POINT OF CARE TEST Abimael MAHER Performing Organization Address City/[facility] Co de Phone Number [facility] [place] [address] * POC, GLUCOSE (06/15/2024 1:26 PM EST) Glucometer, POC 167 65 - 199 mg/dL 06/15/2024 1:26 PM EST [facility] Comment:Supplemental ranges: <140 mg/dL before meals <180 mg/dL all other times of the day. Blood CAPILLARY BLOOD / Unknown 06/15/2024 1:26 PM EST 06/15/2024 1:26 PM EST Bobby Loja MD POINT OF CARE TEST O NIKA Performing Organization Address City/[facility]/ZIP Co de Phone Number [facility] [place] [address] * (ABNORMAL) POC, GLUCOSE (06/15/2024 12:55 PM EST) Glucometer, POC 210(H) 65 - 199 mg/dL 06/15/2024 12:55 PM EST [facility] Comment:Supplemental ranges: <140 mg/dL before meals <180 mg/dL all other times of the day. Blood CAPILLARY BLOOD / Unknown 06/15/2024 12:55 PM EST 06/15/2024 12:55 PM EST Bobby Loja MD POINT OF CARE TEST O NIKA Performing Organization Address City/[facility]/ZIP Co de Phone Number [facility] [place] [address] * (ABNORMAL) POC, GLUCOSE (06/15/2024 11:29 AM EST) Glucometer, POC 220(H) 65 - 199 mg/dL 06/15/2024 11:29 AM EST [facility] Comment:Supplemental ranges: <140 mg/dL before meals <180 mg/dL all other times of the day. Blood CAPILLARY BLOOD / Unknown 06/15/2024 11:29 AM EST 06/15/2024 11:29 AM EST Bobby Loja MD POINT OF CARE TEST O NIKA [facility] [address] * (ABNORMAL) Basic Metabolic Panel (06/15/2024 11:23 AM EST) Glucose 215(H) 65 - 199 mg/dL 06/15/2024 12:08 PM [facility] Comment:Glucose Concentratio n >=200 mg/dL plus symptoms is consistent with Diabetes Mellitus. Blood Urea Nitrogen 24(H) 10 - 20 mg/dL 06/15/2024 12:08 PM [facility] Creatinine 1.54(H) 0.80 - 1.50 mg/dL 06/15/2024 12:08 PM [facility] Sodium 135 135 - 145 mMol/L 06/15/2024 12:08 PM [facility] Potassium 4.5 3.5 - 5.0 mMol/L 06/15/2024 12:08 PM [facility] Chloride 105 98 - 107 mMol/L 06/15/2024 12:08 PM [facility] Carbon Dioxide 19(L) 22 - 31 mMol/L 06/15/2024 12:08 PM [facility] Anion Gap 11 5 - 15 mMol/L 06/15/2024 12:08 PM [facility] Calcium 8.3(L) 8.5 - 10.5 mg/dL 06/15/2024 12:08 PM [facility] Est Glomerular Filtration Rate - Male 49 mL/min/1. 73 m?? 06/15/2024 12:08 PM [facility] Comment: This patient's estimated GFR [...] 11:23 AM EST 06/15/2024 11:33 AM EST Narrative Authorizing Provider Result Saranya Loja MD CHEMISTRY ORDERABLES Performing Organization Address [facility] Co de Phone Number [facility] [place] [place] [address] * POC, GLUCOSE (06/15/2024 10:29 AM EST) Glucometer, POC 189 65 - 199 mg/dL 06/15/2024 10:29 AM EST [facility] Comment:Supplemental ranges: <140 mg/dL before meals <180 mg/dL all other times of the day. Blood CAPILLARY BLOOD / Unknown 06/15/2024 10:29 AM EST 06/15/2024 10:29 AM EST Bobby Loja MD POINT OF CARE TEST O RDERABLES Performing Organization Address [facility] Phone Number [facility] [place] [address] * POC, GLUCOSE (06/15/2024 9:45 AM EST) Glucometer, POC 178 65 - 199 mg/dL 06/15/2024 9:45 AM EST [facility] Comment:Supplemental ranges: <140 mg/dL before meals <180 mg/dL all other times of the day. Blood CAPILLARY BLOOD / Unknown 06/15/2024 9:45 AM EST 06/15/2024 9:45 AM EST Narrative Authorizing Provider Result Saranya Loja MD POINT OF CARE TEST O RDERABLES Performing Organization Address [facility] Co de Phone Number [facility] [place] [address] * (ABNORMAL) Cooximetry, POC (06/15/2024 9:31 AM EST) pO2, Coox 38 mmHg 06/15/2024 9:34 AM EST [facility] Hemoglobin, Coox 12.9(L) 13.7 - 16.5 g/dL 06/15/2024 9:34 AM [facility] Oxyhemoglobin, Coox 72.1 % 06/15/2024 9:34 AM [facility] Carboxyhemoglo bin, Coox 0.9 % 06/15/2024 9:34 AM [facility] Comment: Nonsmokers: 0.5-1.5% COHB ?? Smokers: Variable ??but usually less than 10% ?? Toxic: 20-30% COHB ?? Lethal: Greater than 60% COHB Methemoglobin, Coox 0.3 <=1.5 % 06/15/2024 9:34 AM [facility] Blood (Mixed Venous) 06/15/2024 9:31 AM EST 06/15/2024 9:34 AM EST Bobby Loja MD POINT OF CARE TEST O NIKA Performing Organization Address City/[facility] Co de Phone Number [facility] [place] [address] * Cooximetry, POC (06/15/2024 9:22 AM EST) pO2, Coox 30 mmHg 06/15/2024 9:25 AM [facility] Hemoglobin, Coox 06/15/2024 9:25 AM [facility] Comment:QUES Oxyhemoglobin, Coox 06/15/2024 9:25 AM [facility] Comment:QUES Carboxyhemoglo bin, Coox 06/15/2024 9:25 AM [facility] Comment:QUES Methemoglobin, Coox 06/15/2024 9:25 AM [facility] Comment:QUES Blood (Mixed Venous) 06/15/2024 9:22 AM EST 06/15/2024 9:25 AM EST Bobby Loja MD POINT OF CARE TEST O NIKA Performing Organization Address City/State/[facility] Co de Phone Number [facility] [place] [address] * (ABNORMAL) Blood Gas, Arterial POC (06/15/2024 9:19 AM EST) pH, Arterial 7.31(L) 7.35 - 7.45 06/15/2024 9:21 AM [facility] PCO2, Arterial 36 35 - 45 mmHg 06/15/2024 9:21 AM [facility] PO2, Arterial 94 85 - 104 mmHg 06/15/2024 9:21 AM [facility] Bicarbonate, Arterial 18.0(L) 20.0 - 26.0 mmol/L 06/15/2024 9:21 AM [facility] Base Excess, Arterial -8.2(L) -3.0 - 3.0 mmol/L 06/15/2024 9:21 AM [facility] Hemoglobin, Arterial 12.7(L) 13.7 - 16.5 g/dL 06/15/2024 9:21 AM [facility] Oxyhemoglobin, Arterial 96.0 94.0 - 97.0 % 06/15/2024 9:21 AM [facility] Carboxyhemoglobin , Arterial 0.5 % 06/15/2024 9:21 AM [facility] Comment: Nonsmokers: 0.5-1.5% COHB ?? Smokers: Variable ??but usually less than 10% ?? Toxic: 20-30% COHB ?? Lethal: Greater than 60% COHB Methemoglobin, Arterial 0.3 <=1.5 % 06/15/2024 9:21 AM [facility] Sodium, Arterial 136 135 - 145 mmol/L 06/15/2024 9:21 AM [facility] Potassium, Arterial 4.0 3.5 - 5.0 mmol/L 06/15/2024 9:21 AM [facility] Chloride, Arterial 106 98 - 107 mmol/L 06/15/2024 9:21 AM [facility] Lactate, Arterial 1.7 0.5 - 2.2 mmol/L 06/15/2024 9:21 AM EST [facility] Flow Rate 2.0 L/min 06/15/2024 9:21 AM [facility] IONIZED CALCIUM, ARTERIAL 1.14(L) 1.15 - 1.33 mmol/L 06/15/2024 9:21 AM [facility] Glucose, Arterial 193 65 - 199 mg/dL 06/15/2024 9:21 AM [facility] Comment:Glucose Concentratio n >=200 mg/dL plus symptoms is consistent with Diabetes Mellitus. Blood ARTERIAL BLOOD / Unknown 06/15/2024 9:19 AM EST 06/15/2024 9:20 AM EST Bobby Loja MD POINT OF CARE TEST O RDERAPIETER Performing Organization Address City/[facility]/ZIP Co de Phone Number [facility] [address] * (ABNORMAL) POC, GLUCOSE (06/15/2024 8:37 AM EST) Glucometer, POC 204(H) 65 - 199 mg/dL 06/15/2024 8:37 AM EST [facility] Comment:Supplemental ranges: <140 mg/dL before meals <180 mg/dL all other times of the day. Blood CAPILLARY BLOOD / Unknown 06/15/2024 8:37 AM EST 06/15/2024 8:37 AM EST Bobby Loja MD POINT OF CARE TEST O NIKA Performing Organization Address City/[facility]/ZIP Co de Phone Number [facility] [place] [address] * POC, GLUCOSE (06/15/2024 7:37 AM EST) Glucometer, POC 199 65 - 199 mg/dL 06/15/2024 7:37 AM EST [facility] Comment:Supplemental ranges: <140 mg/dL before meals <180 mg/dL all other times of the day. Blood CAPILLARY BLOOD / Unknown 06/15/2024 7:37 AM EST 06/15/2024 7:38 AM EST Bobby Loja MD POINT OF CARE TEST O NIKA Performing Organization Address [facility] Co de Phone Number [facility] [place] [address] * (ABNORMAL) POC, GLUCOSE (06/15/2024 7:01 AM EST) Glucometer, POC 203(H) 65 - 199 mg/dL 06/15/2024 7:01 AM EST [facility] Comment:Supplemental ranges: <140 mg/dL before meals <180 mg/dL all other times of the day. Blood CAPILLARY BLOOD / Unknown 06/15/2024 7:01 AM EST 06/15/2024 7:01 AM EST Bobby Loja MD POINT OF CARE TEST O NIKA Performing Organization Address [facility] Co de Phone Number [facility] [place] [address] * XR Chest One View (06/15/2024 6:31 AM EST) WORKSTATION ID [id number] RAD Anatomical Region Laterality Modality Chest N/A [...] who have questions please contact the health client care manager that requested your imaging first. ? Electronically signed by: Stuart Aponte MD, [facility] ??([phone]), at 06/15/2024 10:38 AM Narrative 06/15/2024 10:38 [...] patients who have questions please contactthe health client care manager that requested your imaging first. Electronically signed by: Stuart Aponte MD, [facility]([phone]), at 06/15/2024 10:38 AM Bobby Loja MD IMG DX ORDERABLES * POC, GLUCOSE (06/15/2024 6:02 AM EST) [facility] Glucometer, POC 179 65 - 199 mg/dL 06/15/2024 6:02 AM EST [facility] Comment:Supplemental ranges: <140 mg/dL before meals <180 mg/dL all other times of the day. Blood CAPILLARY BLOOD / Unknown 06/15/2024 6:02 AM EST 06/15/2024 6:02 AM EST Bobby Loja MD POINT OF CARE TEST O NIKA Performing Organization Address City/[facility]/ZIP Co de Phone Number [facility] [place] [address] * POC, GLUCOSE (06/15/2024 5:06 AM EST) Glucometer, POC 160 65 - 199 mg/dL 06/15/2024 5:06 AM EST [facility] Comment:Supplemental ranges: <140 mg/dL before meals <180 mg/dL all other times of the day. Blood CAPILLARY BLOOD / Unknown 06/15/2024 5:06 AM EST 06/15/2024 5:06 AM EST Bobby Loja MD POINT OF CARE TEST O NIKA Performing Organization Address City/[facility] Co de Phone Number [facility] [place] [address] * POC, GLUCOSE (06/15/2024 4:05 AM EST) Glucometer, POC 160 65 - 199 mg/dL 06/15/2024 4:06 AM EST [facility] Comment:Supplemental ranges: <140 mg/dL before meals <180 mg/dL all other times of the day. Blood CAPILLARY BLOOD / Unknown 06/15/2024 4:05 AM EST 06/15/2024 4:06 AM EST Narrative Authorizing Provider Result Saranya Loja MD POINT OF CARE TEST O NIKA [facility] [place] [address] * POC, GLUCOSE (06/15/2024 3:07 AM EST) Glucometer, POC 151 65 - 199 mg/dL 06/15/2024 3:07 AM [facility] Comment:Supplemental ranges: <140 mg/dL before meals <180 mg/dL all other times of the day. Blood CAPILLARY BLOOD / Unknown 06/15/2024 3:07 AM EST 06/15/2024 3:07 AM EST Bobby Loja MD POINT OF CARE TEST O NIKA [facility] [place] [address] * (ABNORMAL) Basic Metabolic Panel (06/15/2024 1:48 AM EST) Glucose 140 65 - 199 mg/dL 06/15/2024 2:38 AM [facility] Comment:Glucose Concentratio n >=200 mg/dL plus symptoms is consistent with Diabetes Mellitus. Blood Urea Nitrogen 21(H) 10 - 20 mg/dL 06/15/2024 2:38 AM [facility] Creatinine 1.27 0.80 - 1.50 mg/dL 06/15/2024 2:38 AM [facility] Sodium 140 135 - 145 mMol/L 06/15/2024 2:38 AM [facility] Potassium 4.4 3.5 - 5.0 mMol/L 06/15/2024 2:38 AM [facility] Chloride 108(H) 98 - 107 mMol/L 06/15/2024 2:38 AM [facility] Carbon Dioxide 23 22 - 31 mMol/L 06/15/2024 2:38 AM [facility] Anion Gap 9 5 - 15 mMol/L 06/15/2024 2:38 AM [facility] Calcium 8.3(L) 8.5 - 10.5 mg/dL 06/15/2024 2:38 AM [facility] Est Glomerular Filtration Rate - Male 62 mL/min/1. 73 m?? 06/15/2024 2:38 AM [facility] Comment: This patient's estimated GFR [...] Loja MD CHEMISTRY ORDERABLES Performing Organization Address City/State/[facility] Co de Phone Number [facility] [place] [address] * (ABNORMAL) CBC (with Diff) (06/15/2024 1:48 AM EST) White Blood Cell 11.71(H) 4.00 - 9.50 x10(3)/mc L 06/15/2024 2:13 AM EST [facility] Red Blood Cell 4.14(L) 4.58 - 5.54 x10(6)/mc L 06/15/2024 2:13 AM [facility] Hemoglobin 12.5(L) 13.7 - 16.5 g/dL 06/15/2024 2:13 AM [facility] Hematocrit 38.4(L) 40.5 - 48.5 % 06/15/2024 2:13 AM [facility] Mean Cell Volume 92.8 82.9 - 93.1 fL 06/15/2024 2:13 AM [facility] Mean Cell Hemoglobin 30.2 27.5 - 32.1 pg 06/15/2024 2:13 AM [facility] Mean Cell Hemoglobin Concentration 32.6 32.0 - 35.7 g/dL 06/15/2024 2:13 AM [facility] Platelet 101(L) 145 - 357 x10(3)/mc L 06/15/2024 2:13 AM [facility] Mean Platelet Volume 10.0 7.6 - 12.9 fL 06/15/2024 2:13 AM [facility] RDW Standard Deviation 48.8(H) 36.0 - 45.0 fL 06/15/2024 2:13 AM [facility] RDW coefficient of variation 14.2(H) 11.4 - 13.8 % 06/15/2024 2:13 AM [facility] NRBC% auto 0.0 % 06/15/2024 2:13 AM [facility] NRBC Absolute <0.01 <0.01 x10(3)/mc L 06/15/2024 2:13 AM [facility] Neutrophil % 79.7 % 06/15/2024 2:13 AM [facility] Neutrophil Absolute (ANC) - Automated 9.34(H) 1.70 - 6.10 x10(3)/mc L 06/15/2024 2:13 AM [facility] Lymph % 8.0 % 06/15/2024 2:13 AM [facility] Lymph Absolute 0.94 0.90 - 3.20 x10(3)/mc L 06/15/2024 2:13 AM [facility] Monocyte % 11.4 % 06/15/2024 2:13 AM [facility] Monocyte Absolute 1.33(H) 0.30 - 0.90 x10(3)/mc L 06/15/2024 2:13 AM [facility] Eos % 0.2 % 06/15/2024 2:13 AM [facility] Eos Absolute <0.04 0.00 - 0.40 x10(3)/mc L 06/15/2024 2:13 AM [facility] Basophil % 0.2 % 06/15/2024 2:13 AM EST [facility] Baso Absolute <0.04 0.00 - 0.10 x10(3)/mc L 06/15/2024 2:13 AM EST [facility] Immature Gran % 0.5 % 2:13 AM EST [facility] Immature Gran Absolute 0.06(H) 0.00 - 0.04 x10(3)/mc L 06/15/2024 2:13 AM EST [facility] Blood VENOUS BLOOD SPECIMEN / Unknown Venipuncture / Unknown 06/15/2024 1:48 AM EST 06/15/2024 1:52 AM EST Bobby Loja MD HEMATOLOGY ORDERABLE S [facility] [place] [address] * (ABNORMAL) Troponin - Single (06/15/2024 1:48 AM EST) Troponin-T, High Sensitivity 667(H) <=22 ng/L 06/15/2024 2:22 AM EST [facility] Comment: This patient's troponin T concentration [...] troponin value can be found in the [facility] Test Catalog Troponin - [email or web address] Reference: Fourth [place] Definition of Myocardial Infarction. Journal of the [place] [employer] 2018;72:4010-8904 Blood VENOUS BLOOD SPECIMEN / Unknown Venipuncture / Unknown 06/15/2024 1:48 AM EST 06/15/2024 1:52 AM EST Bobby Loja MD CHEMISTRY ORDERABLES [facility] [address] * (ABNORMAL) Blood Gas, Arterial POC (06/15/2024 1:46 AM EST) pH, Arterial 7.33(L) 7.35 - 7.45 06/15/2024 1:47 AM [facility] PCO2, Arterial 40 35 - 45 mmHg 06/15/2024 1:47 AM [facility] PO2, Arterial 131(H) 85 - 104 mmHg 06/15/2024 1:47 AM [facility] Bicarbonate, Arterial 20.7 20.0 - 26.0 mmol/L 06/15/2024 1:47 AM [facility] Base Excess, Arterial -5.2(L) -3.0 - 3.0 mmol/L 06/15/2024 1:47 AM [facility] Hemoglobin, Arterial 13.4(L) 13.7 - 16.5 g/dL 06/15/2024 1:47 AM [facility] Oxyhemoglobin, Arterial 97.9(H) 94.0 - 97.0 % 06/15/2024 1:47 AM [facility] Carboxyhemoglobin , Arterial 0.5 % 06/15/2024 1:47 AM [facility] Comment: Nonsmokers: 0.5-1.5% COHB ?? Smokers: Variable ??but usually less than 10% ?? Toxic: 20-30% COHB ?? Lethal: Greater than 60% COHB Methemoglobin, Arterial 0.3 <=1.5 % 06/15/2024 1:47 AM [facility] Sodium, Arterial 139 135 - 145 mmol/L 06/15/2024 1:47 AM [facility] Potassium, Arterial 4.2 3.5 - 5.0 mmol/L 06/15/2024 1:47 AM [facility] Chloride, Arterial 107 98 - 107 mmol/L 06/15/2024 1:47 AM [facility] Lactate, Arterial 1.8 0.5 - 2.2 mmol/L 06/15/2024 1:47 AM [facility] Fraction of Inspired Oxygen 40 % 06/15/2024 1:47 AM [facility] PF Ratio 328 Ratio 06/15/2024 1:47 AM [facility] Comment:PF ratio calculated using the non-temperature corrected pO2 result. IONIZED CALCIUM, ARTERIAL 1.17 1.15 - 1.33 mmol/L 06/15/2024 1:47 AM [facility] Glucose, Arterial 127 65 - 199 mg/dL 06/15/2024 1:47 AM [facility] Comment:Glucose Concentratio n >=200 mg/dL plus symptoms is consistent with Diabetes Mellitus. Blood ARTERIAL BLOOD / Unknown 06/15/2024 1:46 AM EST 06/15/2024 1:47 AM EST Bobby Loja MD POINT OF CARE TEST O RDERABLES [facility] [place] [address] * POC, GLUCOSE (06/15/2024 1:05 AM EST) Glucometer, POC 116 65 - 199 mg/dL 06/15/2024 1:05 AM [facility] Comment:Supplemental ranges: <140 mg/dL before meals <180 mg/dL all other times of the day. Blood CAPILLARY BLOOD / Unknown 06/15/2024 1:05 AM EST 06/15/2024 1:05 AM EST Bobby Loja MD POINT OF CARE TEST O NIKA Performing Organization Address [facility] Co de Phone Number [facility] [place] [address] * POC, GLUCOSE (06/15/2024 12:16 AM EST) Glucometer, POC 135 65 - 199 mg/dL 06/15/2024 12:16 AM EST [facility] Comment:Supplemental ranges: <140 mg/dL before meals <180 mg/dL all other times of the day. Blood CAPILLARY BLOOD / Unknown 06/15/2024 12:16 AM EST 06/15/2024 12:16 AM EST Bobby Loja MD POINT OF CARE TEST O NIKA Performing Organization Address [facility] de Phone Number [facility] [place] [address] * Potassium (06/14/2024 11:28 PM EST) Potassium 4.1 3.5 - 5.0 mMol/L 06/14/2024 11:54 PM EST [facility] Blood VENOUS BLOOD SPECIMEN / Unknown Venipuncture / Unknown 06/14/2024 11:28 PM EST 06/14/2024 11:34 PM EST Bobby Loja MD CHEMISTRY ORDERABLES Performing Organization Address [facility] Co de Phone Number [facility] [place] [address] * POC, GLUCOSE (06/14/2024 10:58 PM EST) Glucometer, POC 126 65 - 199 mg/dL 06/14/2024 10:59 PM EST [facility] Comment:Supplemental ranges: <140 mg/dL before meals <180 mg/dL all other times of the day. Blood CAPILLARY BLOOD / Unknown 06/14/2024 10:58 PM EST 06/14/2024 10:59 PM EST Bobby Loja MD POINT OF CARE TEST O NIKA Performing Organization Address [facility] Co de Phone Number [facility] [place] [address] * POC, GLUCOSE (06/14/2024 9:55 PM EST) Glucometer, POC 152 65 - 199 mg/dL 06/14/2024 9:56 PM EST [facility] Comment:Supplemental ranges: <140 mg/dL before meals <180 mg/dL all other times of the day. Blood CAPILLARY BLOOD / Unknown 06/14/2024 9:55 PM EST 06/14/2024 9:56 PM EST Bobby Loja MD POINT OF CARE TEST Abimael MAHER Performing Organization Address [facility] Co de Phone Number [facility] [place] [address] * POC, GLUCOSE (06/14/2024 8:54 PM EST) Glucometer, POC 151 65 - 199 mg/dL 06/14/2024 8:54 PM EST [facility] Comment:Supplemental ranges: <140 mg/dL before meals <180 mg/dL all other times of the day. Blood CAPILLARY BLOOD / Unknown 06/14/2024 8:54 PM EST 06/14/2024 8:54 PM EST Bobby Loja MD POINT OF CARE TEST Abimael MAHER Performing Organization Address City/[facility] Co de Phone Number [facility] [place] [address] * POC, GLUCOSE (06/14/2024 7:51 PM EST) Glucometer, POC 169 65 - 199 mg/dL 06/14/2024 7:52 PM EST [facility] Comment:Supplemental ranges: <140 mg/dL before meals <180 mg/dL all other times of the day. Blood CAPILLARY BLOOD / Unknown 06/14/2024 7:51 PM EST 06/14/2024 7:52 PM EST Narrative Authorizing Provider Result Saranya Loja MD POINT OF CARE TEST O NKIA Performing Organization Address [facility] Co de Phone Number [facility] [place] [address] * POC, GLUCOSE (06/14/2024 6:49 PM EST) Glucometer, POC 194 65 - 199 mg/dL 06/14/2024 6:50 PM EST [facility] Comment:Supplemental ranges: <140 mg/dL before meals <180 mg/dL all other times of the day. Blood CAPILLARY BLOOD / Unknown 06/14/2024 6:49 PM EST 06/14/2024 6:50 PM EST Narrative Authorizing Provider Result Saranya Loja MD POINT OF CARE TEST O NIKA Performing Organization Address [facility] Co de Phone Number [facility] [place] [address] * (ABNORMAL) Hemoglobin (06/14/2024 6:19 PM EST) Hemoglobin 13.1(L) 13.7 - 16.5 g/dL 06/14/2024 7:08 PM EST [facility] Blood VENOUS BLOOD SPECIMEN / Unknown Venipuncture / Unknown 06/14/2024 6:19 PM EST 06/14/2024 6:28 PM EST Narrative Authorizing Provider Result Saranya Loja MD HEMATOLOGY ORDERABLE S Performing Organization Address City/[facility]/ZIP Co de Phone Number [facility] [place] [address] * Potassium (06/14/2024 6:19 PM EST) Potassium 3.9 3.5 - 5.0 mMol/L 06/14/2024 6:52 PM EST [facility] Blood VENOUS BLOOD SPECIMEN / Unknown Venipuncture / Unknown 06/14/2024 6:19 PM EST 06/14/2024 6:28 PM EST Bobby Loja MD CHEMISTRY ORDERABLES Performing Organization Address [facility]/ZIP Co de Phone Number [facility] [place] [address] * (ABNORMAL) POC, GLUCOSE (06/14/2024 6:03 PM EST) [facility] Glucometer, POC 201(H) 65 - 199 mg/dL 06/14/2024 6:03 PM EST [facility] Comment:Supplemental ranges: <140 mg/dL before meals <180 mg/dL all other times of the day. Blood CAPILLARY BLOOD / Unknown 06/14/2024 6:03 PM EST 06/14/2024 6:03 PM EST Bobby Loja MD POINT OF CARE TEST O RDERABLES Performing Organization Address City/[facility]/ZIP Co de Phone Number [facility] [place] [address] * (ABNORMAL) Blood Gas, Arterial POC (06/14/2024 4:51 PM EST) [facility] Signature pH, Arterial 7.32(L) 7.35 - 7.45 06/14/2024 4:52 PM EST [facility] [facility] PCO2, Arterial 46(H) 35 - 45 mmHg 06/14/2024 4:52 PM EST [facility] PO2, Arterial 85 85 - 104 mmHg 06/14/2024 4:52 PM EST [facility] Bicarbonate, Arterial 23.1 20.0 - 26.0 mmol/L 06/14/2024 4:52 PM EST [facility] Base Excess, Arterial -3.1(L) -3.0 - 3.0 mmol/L 06/14/2024 4:52 PM EST [facility] Hemoglobin, Arterial 14.3 13.7 - 16.5 g/dL 06/14/2024 4:52 PM [facility] Oxyhemoglobin, Arterial 94.7 94.0 - 97.0 % 06/14/2024 4:52 PM [facility] Carboxyhemoglobin , Arterial 0.6 % 06/14/2024 4:52 PM [facility] Comment: Nonsmokers: 0.5-1.5% COHB ?? Smokers: Variable ??but usually less than 10% ?? Toxic: 20-30% COHB ?? Lethal: Greater than 60% COHB Methemoglobin, Arterial 0.0 <=1.5 % 06/14/2024 4:52 PM [facility] Sodium, Arterial 138 135 - 145 mmol/L 06/14/2024 4:52 PM [facility] Potassium, Arterial 4.1 3.5 - 5.0 mmol/L 06/14/2024 4:52 PM [facility] Chloride, Arterial 106 98 - 107 mmol/L 06/14/2024 4:52 PM [facility] Lactate, Arterial 1.3 0.5 - 2.2 mmol/L 06/14/2024 4:52 PM [facility] Fraction of Inspired Oxygen 40 % 06/14/2024 4:52 PM [facility] PF Ratio 213 Ratio 06/14/2024 4:52 PM [facility] Comment:PF ratio calculated using the non-temperature corrected pO2 result. IONIZED CALCIUM, ARTERIAL 1.16 1.15 - 1.33 mmol/L 06/14/2024 4:52 PM [facility] Glucose, Arterial 192 65 - 199 mg/dL 06/14/2024 4:52 PM [facility] Comment:Glucose Concentratio n >=200 mg/dL plus symptoms is consistent with Diabetes Mellitus. Blood ARTERIAL BLOOD / Unknown 06/14/2024 4:51 PM EST 06/14/2024 4:52 PM EST Bobby Loja MD POINT OF CARE TEST O RDERABLES [facility] [place] [address] * POC, GLUCOSE (06/14/2024 4:00 PM EST) Glucometer, POC 184 65 - 199 mg/dL 06/14/2024 4:01 PM EST [facility] Comment:Supplemental ranges: <140 mg/dL before meals <180 mg/dL all other times of the day. Blood CAPILLARY BLOOD / Unknown 06/14/2024 4:00 PM EST 06/14/2024 4:01 PM EST Bobby oLja MD POINT OF CARE TEST O RDERABLES Performing Organization Address [facility] de Phone Number [facility] [place] [address] * XR Chest One View (06/14/2024 3:05 PM EST) [facility] WORKSTATION ID [id number] RAD Anatomical Region Laterality Modality Chest N/A [...] who have questions please contact the health client care manager that requested your imaging first. ? Electronically signed by: Stuart Aponte MD, [facility] ??([phone]), at 06/14/2024 4:07 PM Narrative 06/14/2024 4:07 [...] patients who have questions please contactthe health client care manager that requested your imaging first. Electronically signed by: Stuart Aponte MD, [facility]([phone]), at 06/14/2024 4:07 PM Bobby Loja MD IMG DX ORDERABLES * (ABNORMAL) Blood Gas, Arterial POC (06/14/2024 2:52 PM EST) pH, Arterial 7.28(LLL) 7.35 - 7.45 06/14/2024 2:53 PM [facility] PCO2, Arterial 50(H) 35 - 45 mmHg 06/14/2024 2:53 PM [facility] PO2, Arterial 510(H) 85 - 104 mmHg 06/14/2024 2:53 PM [facility] Bicarbonate, Arterial 22.8 20.0 - 26.0 mmol/L 06/14/2024 2:53 PM [facility] Base Excess, Arterial -4.0(L) -3.0 - 3.0 mmol/L 06/14/2024 2:53 PM [facility] Hemoglobin, Arterial 13.8 13.7 - 16.5 g/dL 06/14/2024 2:53 PM [facility] Oxyhemoglobin, Arterial 99.3(H) 94.0 - 97.0 % 06/14/2024 2:53 PM [facility] Carboxyhemoglobin , Arterial 0.6 % 06/14/2024 2:53 PM [facility] Comment: Nonsmokers: 0.5-1.5% COHB ?? Smokers: Variable ??but usually less than 10% ?? Toxic: 20-30% COHB ?? Lethal: Greater than 60% COHB Methemoglobin, Arterial 0.1 <=1.5 % 06/14/2024 2:53 PM [facility] Sodium, Arterial 138 135 - 145 mmol/L 06/14/2024 2:53 PM [facility] Potassium, Arterial 4.2 3.5 - 5.0 mmol/L 06/14/2024 2:53 PM [facility] Chloride, Arterial 106 98 - 107 mmol/L 06/14/2024 2:53 PM EST [facility] Lactate, Arterial 1.1 0.5 - 2.2 mmol/L 06/14/2024 2:53 PM EST [facility] Fraction of Inspired Oxygen 100 % 06/14/2024 2:53 PM EST [facility] PF Ratio 510 Ratio 06/14/2024 2:53 PM EST [facility] Comment:PF ratio calculated using the non-temperature corrected pO2 result. IONIZED CALCIUM, ARTERIAL 1.15 1.15 - 1.33 mmol/L 06/14/2024 2:53 PM EST [facility] Glucose, Arterial 169 65 - 199 mg/dL 06/14/2024 2:53 PM EST [facility] Comment:Glucose Concentratio n >=200 mg/dL plus symptoms is consistent with Diabetes Mellitus. Blood ARTERIAL BLOOD / Unknown 06/14/2024 2:52 PM EST 06/14/2024 2:53 PM EST Bobby Loja MD POINT OF CARE TEST O RDERABLES [facility] [place] [address] * EKG 12 Lead (06/14/2024 2:46 PM EST) Ventricular rate 80 BPM MUSE SYSTEM Atrial Rate 80 BPM MUSE SYSTEM P-R Interval 120 ms MUSE SYSTEM QRS Duration 108 ms MUSE SYSTEM Q-T Interval 454 ms MUSE SYSTEM QTC Calculated (Bezet) 523 ms MUSE SYSTEM Calculated P [place] 70 degrees MUSE SYSTEM Calculated R [place] 56 degrees MUSE SYSTEM Calculated T [place] 50 degrees MUSE SYSTEM INTERPRETATION AV dual-paced rhythm Abnormal ECG When compared with ECG of 03-JUN-2024 01:45, Vent. rate has increased BY ??17 BPM Confirmed by MD Marisol, Shaheen ([id number]) on 06/15/2024 1:57:23 PM MUSE SYSTEM 06/14/2024 2:46 PM EST 06/15/2024 1:57 PM EST Bobby Loja MD ECG ORDERABLES MUSE SYSTEM * Prepare RBC (06/14/2024 2:27 PM EST) Status Information Returned [facility] Product Identification RBC [facility] Unit Number [id number] [facility] Product [facility] [id number] [facility] Unit Blood Type OPOS [facility] Specimen Expiration Date [facility] Volulme 350 [facility] Issue Date / Time [facility] Status Information Return[facility] Product Identification RBC [facility] Unit Number [id number] [facility] Product [facility] [id number] [facility] Unit Blood Type OPOS [facility] Specimen Expiration Date [facility] Volulme 350 [facility] Issue Date / Time [facility] Blood 06/14/2024 6:2 5 AM EST Haja Byrnes MD BLOOD BANK PRODUCT O RDERABLES [facility] [place] [address] * (ABNORMAL) Cooximetry, POC (06/14/2024 1:52 PM EST) pO2, Coox 58 mmHg 06/14/2024 1:55 PM EST [facility] Hemoglobin, Coox 12.6(L) 13.7 - 16.5 g/dL 06/14/2024 1:55 PM EST [facility] Oxyhemoglobin, Coox 85.5 % 06/14/2024 1:55 PM EST [facility] Carboxyhemoglo bin, Coox 0.3 % 06/14/2024 1:55 PM EST [facility] Comment: Nonsmokers: 0.5-1.5% COHB ?? Smokers: Variable ??but usually less than 10% ?? Toxic: 20-30% COHB ?? Lethal: Greater than 60% COHB Methemoglobin, Coox 0.6 <=1.5 % 06/14/2024 1:55 PM EST [facility] Blood (Mixed Venous) 06/14/2024 1:52 PM EST 06/14/2024 1:55 PM EST Haja Byrnes MD POINT OF CARE TEST O NIKA [facility] [place] [address] * (ABNORMAL) Blood Gas, Arterial POC (06/14/2024 12:47 PM EST) pH, Arterial 7.33(L) 7.35 - 7.45 06/14/2024 12:48 PM [facility] PCO2, Arterial 46(H) 35 - 45 mmHg 06/14/2024 12:48 PM [facility] PO2, Arterial 358(H) 85 - 104 mmHg 06/14/2024 12:48 PM [facility] Bicarbonate, Arterial 23.8 20.0 - 26.0 mmol/L 06/14/2024 12:48 PM [facility] Base Excess, Arterial -2.1 -3.0 - 3.0 mmol/L 06/14/2024 12:48 PM [facility] Hemoglobin, Arterial 11.7(L) 13.7 - 16.5 g/dL 06/14/2024 12:48 PM [facility] Oxyhemoglobin, Arterial 98.7(H) 94.0 - 97.0 % 06/14/2024 12:48 PM [facility] Carboxyhemoglobin , Arterial 0.3 % 06/14/2024 12:48 PM [facility] Comment: Nonsmokers: 0.5-1.5% COHB ?? Smokers: Variable ??but usually less than 10% ?? Toxic: 20-30% COHB ?? Lethal: Greater than 60% COHB Methemoglobin, Arterial 0.5 <=1.5 % 06/14/2024 12:48 PM EST [facility] Sodium, Arterial 135 135 - 145 mmol/L 06/14/2024 12:48 PM EST [facility] Potassium, Arterial 5.0 3.5 - 5.0 mmol/L 06/14/2024 12:48 PM EST [facility] Chloride, Arterial 106 98 - 107 mmol/L 06/14/2024 12:48 PM EST [facility] Lactate, Arterial 1.4 0.5 - 2.2 mmol/L 06/14/2024 12:48 PM EST [facility] IONIZED CALCIUM, ARTERIAL 1.09(L) 1.15 - 1.33 mmol/L 06/14/2024 12:48 PM [facility] Glucose, Arterial 157 65 - 199 mg/dL 06/14/2024 12:48 PM EST [facility] Comment:Glucose Concentratio n >=200 mg/dL plus symptoms is consistent with Diabetes Mellitus. Blood ARTERIAL BLOOD / Unknown 06/14/2024 12:47 PM EST 06/14/2024 12:48 PM EST Haja Byrnes MD POINT OF CARE TEST O RDERABLES [facility] [place] [address] * (ABNORMAL) Cooximetry, POC (06/14/2024 12:42 PM EST) pO2, Coox 71 mmHg 06/14/2024 12:45 PM EST [facility] Hemoglobin, Coox 11.6(L) 13.7 - 16.5 g/dL 06/14/2024 12:45 PM EST [facility] Oxyhemoglobin, Coox 91.5 % 06/14/2024 12:45 PM EST [facility] Carboxyhemoglo bin, Coox 0.3 % 06/14/2024 12:45 PM EST [facility] Comment: Nonsmokers: 0.5-1.5% COHB ?? Smokers: Variable ??but usually less than 10% ?? Toxic: 20-30% COHB ?? Lethal: Greater than 60% COHB Methemoglobin, Coox 0.4 <=1.5 % 06/14/2024 12:45 PM EST [facility] Blood (Mixed Venous) 06/14/2024 12:42 PM EST 06/14/2024 12:45 PM EST Haja Byrnes MD POINT OF CARE TEST O RDERABLES [facility] [address] * (ABNORMAL) Platelet count (06/14/2024 12:30 PM EST) Platelet 73(L) 145 - 357 x10(3)/mcL 06/14/2024 12:54 PM EST [facility] Blood ARTERIAL BLOOD / Unknown 06/14/2024 12:30 PM EST Comment:Pre-op diagnosis: CAD Bobby Loja MD HEMATOLOGY ORDERABLE S Performing Organization Address City/[facility]/ZIP Co de Phone Number [facility] [place] [address] * (ABNORMAL) Hemoglobin and Hematocrit, blood (06/14/2024 12:30 PM EST) Hemoglobin 10.9(L) 13.7 - 16.5 g/dL 06/14/2024 12:54 PM EST [facility] Hematocrit 33.5(L) 40.5 - 48.5 % 06/14/2024 12:54 PM EST [facility] Comment:This result has been called to Danielle López by Satya Page on 06/14/2024 12:53:56, and has been read back. Blood ARTERIAL BLOOD / Unknown 06/14/2024 12:30 PM EST 06/14/2024 12:42 PM EST Comment:Pre-op diagnosis: CAD Bobby Loja MD HEMATOLOGY ORDERABLE S Performing Organization Address [facility] Co de Phone Number [facility] [place] [address] * APTT (06/14/2024 12:30 PM EST) Partial Thromboplastin Time 31 25 - 37 sec 06/14/2024 12:57 PM EST [facility] Comment: The PTT is NOT appropriate for heparin monitoring. Use the Anti-Xa level for heparin monitoring (HEP UFH) or LMWH monitoring (HEP LMW). A PTT less than 37 seconds generally indicates adequate hemostasis. Blood ARTERIAL BLOOD / Unknown 06/14/2024 12:30 PM EST 06/14/2024 12:42 PM EST Comment:Pre-op diagnosis: CAD Bobby Loja MD HEMATOLOGY ORDERABLE S Performing Organization Address [facility] de Phone Number [facility] [place] [address] * (ABNORMAL) Prothrombin Time (06/14/2024 12:30 PM EST) Prothrombin Time 16.8(H) 9.4 - 12.5 sec 06/14/2024 12:57 PM EST [facility] International Normalization Ratio 1.5 <=4.9 06/14/2024 12:57 PM EST [facility] Comment: An INR < 2.0 indicates [...] MD HEMATOLOGY ORDERABLE S Performing Organization Address [facility]/ZIP Co de Phone Number [facility] [place] [address] * Fibrinogen (06/14/2024 12:30 PM EST) Fibrinogen 211 200 - 393 mg/dL 06/14/2024 12:57 PM EST [facility] Comment: A fibrinogen level >100 mg/dL is adequate for hemostasis in most patients without underlying bleeding disorders. Blood ARTERIAL BLOOD / Unknown 06/14/2024 12:30 PM EST 06/14/2024 12:42 PM EST Comment:Pre-op diagnosis: CAD Bobby Loja MD HEMATOLOGY ORDERABLE S [facility] [place] [address] * (ABNORMAL) Blood Gas, Arterial POC (06/14/2024 12:15 PM EST) pH, Arterial 7.38 7.35 - 7.45 06/14/2024 12:16 PM EST [facility] PCO2, Arterial 40 35 - 45 mmHg 06/14/2024 12:16 [address] [facility] Bicarbonate, Arterial 22.9 20.0 - 26.0 mmol/L 06/14/2024 12:16 [address] [facility] Base Excess, Arterial -2.3 -3.0 - 3.0 mmol/L 06/14/2024 12:16 PM EST [facility] Hemoglobin, Arterial 11.4(L) 13.7 - 16.5 g/dL 06/14/2024 12:16 [address] [facility] Oxyhemoglobin, Arterial 98.8(H) 94.0 - 97.0 % 06/14/2024 12:16 PM EST [facility] Carboxyhemoglobin , Arterial 0.3 % 06/14/2024 12:16 [address] [facility] Comment: Nonsmokers: 0.5-1.5% COHB ?? Smokers: Variable ??but usually less than 10% ?? Toxic: 20-30% COHB ?? Lethal: Greater than 60% COHB Methemoglobin, Arterial 0.6 <=1.5 % 06/14/2024 12:16 [address] [facility] Sodium, Arterial 134(L) 135 - 145 mmol/L 06/14/2024 12:16 [address] [facility] Potassium, Arterial 5.4(H) 3.5 - 5.0 mmol/L 06/14/2024 12:16 [address] [facility] Chloride, Arterial 105 98 - 107 mmol/L 06/14/2024 12:16 [address] [facility] Lactate, Arterial 1.3 0.5 - 2.2 mmol/L 06/14/2024 12:16 [address] [facility] IONIZED CALCIUM, ARTERIAL 1.08(L) 1.15 - 1.33 mmol/L 06/14/2024 12:16 PM [facility] Glucose, Arterial 161 65 - 199 mg/dL 06/14/2024 12:16 PM [facility] Comment:Glucose Concentratio n >=200 mg/dL plus symptoms is consistent with Diabetes Mellitus. Blood ARTERIAL BLOOD / Unknown 06/14/2024 12:15 PM EST 06/14/2024 12:16 PM EST Haja Byrnes MD POINT OF CARE TEST O RDERABLES [facility] [address] * (ABNORMAL) Blood Gas, Arterial POC (06/14/2024 11:51 AM EST) pH, Arterial 7.40 7.35 - 7.45 06/14/2024 11:52 AM EST [facility] PCO2, Arterial 41 35 - 45 mmHg 06/14/2024 11:52 AM [facility] PO2, Arterial 332(H) 85 - 104 mmHg 06/14/2024 11:52 AM [facility] Bicarbonate, Arterial 24.7 20.0 - 26.0 mmol/L 06/14/2024 11:52 AM [facility] Base Excess, Arterial -0.1 -3.0 - 3.0 mmol/L 06/14/2024 11:52 AM [facility] Hemoglobin, Arterial 11.1(L) 13.7 - 16.5 g/dL 06/14/2024 11:52 AM [facility] Oxyhemoglobin, Arterial 98.7(H) 94.0 - 97.0 % 06/14/2024 11:52 AM [facility] Carboxyhemoglobin , Arterial 0.3 % 06/14/2024 11:52 AM [facility] Comment: Nonsmokers: 0.5-1.5% COHB ?? Smokers: Variable ??but usually less than 10% ?? Toxic: 20-30% COHB ?? Lethal: Greater than 60% COHB Methemoglobin, Arterial 0.4 <=1.5 % 06/14/2024 11:52 AM [facility] Sodium, Arterial 135 135 - 145 mmol/L 06/14/2024 11:52 AM [facility] Potassium, Arterial 5.7(H) 3.5 - 5.0 mmol/L 06/14/2024 11:52 AM [facility] Chloride, Arterial 105 98 - 107 mmol/L 06/14/2024 11:52 AM [facility] Lactate, Arterial 1.2 0.5 - 2.2 mmol/L 06/14/2024 11:52 AM [facility] IONIZED CALCIUM, ARTERIAL 1.10(L) 1.15 - 1.33 mmol/L 06/14/2024 11:52 AM [facility] Glucose, Arterial 148 65 - 199 mg/dL 06/14/2024 11:52 AM [facility] Comment:Glucose Concentratio n >=200 mg/dL plus symptoms is consistent with Diabetes Mellitus. Blood ARTERIAL BLOOD / Unknown 06/14/2024 11:51 AM EST 06/14/2024 11:52 AM EST Haja Byrnes MD POINT OF CARE TEST O RDERABLES [facility] [address] * (ABNORMAL) Blood Gas, Arterial POC (06/14/2024 11:27 AM EST) pH, Arterial 7.38 7.35 - 7.45 06/14/2024 11:28 AM [facility] PCO2, Arterial 37 35 - 45 mmHg 06/14/2024 11:28 AM [facility] PO2, Arterial 348(H) 85 - 104 mmHg 06/14/2024 11:28 AM [facility] Bicarbonate, Arterial 21.1 20.0 - 26.0 mmol/L 06/14/2024 11:28 AM [facility] Base Excess, Arterial -4.1(L) -3.0 - 3.0 mmol/L 06/14/2024 11:28 AM [facility] Hemoglobin, Arterial 11.0(L) 13.7 - 16.5 g/dL 06/14/2024 11:28 AM [facility] Oxyhemoglobin, Arterial 98.7(H) 94.0 - 97.0 % 06/14/2024 11:28 AM [facility] Carboxyhemoglobin , Arterial 0.3 % 06/14/2024 11:28 AM [facility] Comment: Nonsmokers: 0.5-1.5% COHB ?? Smokers: Variable ??but usually less than 10% ?? Toxic: 20-30% COHB ?? Lethal: Greater than 60% COHB Methemoglobin, Arterial 0.4 <=1.5 % 06/14/2024 11:28 AM [facility] Sodium, Arterial 132(L) 135 - 145 mmol/L 06/14/2024 11:28 AM [facility] Potassium, Arterial 5.8(H) 3.5 - 5.0 mmol/L 06/14/2024 11:28 AM [facility] Chloride, Arterial 105 98 - 107 mmol/L 06/14/2024 11:28 AM [facility] Lactate, Arterial 1.1 0.5 - 2.2 mmol/L 06/14/2024 11:28 AM [facility] IONIZED CALCIUM, ARTERIAL 1.03(L) 1.15 - 1.33 mmol/L 06/14/2024 11:28 AM [facility] Glucose, Arterial 147 65 - 199 mg/dL 06/14/2024 11:28 AM [facility] Comment:Glucose Concentratio n >=200 mg/dL plus symptoms is consistent with Diabetes Mellitus. Blood ARTERIAL BLOOD / Unknown 06/14/2024 11:27 AM EST 06/14/2024 11:28 AM EST Haja Byrnes MD POINT OF CARE TEST O RDERABLES [facility] [place] [address] * (ABNORMAL) Scan, Peripheral Blood (06/14/2024 11:23 AM EST) Pathologist [facility] RBC Morphology Abnormal 06/14/2024 11:59 AM [facility] Platelet Estimate Decreased(A) Normal 06/14/2024 11:59 AM [facility] Aretha cells 1-5 /HPF 06/14/2024 11:59 AM [facility] Blood ARTERIAL BLOOD / Unknown 06/14/2024 11:23 AM EST 06/14/2024 11:27 AM EST Bobby Loja MD HEMATOLOGY ORDERABLE S [facility] [place] [address] * (ABNORMAL) Platelet count (06/14/2024 11:23 AM EST) Platelet 86(L) 145 - 357 x10(3)/mcL 06/14/2024 11:59 AM EST [facility] Blood ARTERIAL BLOOD / Unknown 06/14/2024 11:23 AM EST Comment:Pre-op diagnosis: CAD Bobby Loja MD HEMATOLOGY ORDERABLE S Performing Organization Address City/[facility]/ZIP Co de Phone Number [facility] [place] [address] * (ABNORMAL) Hemoglobin and Hematocrit, blood (06/14/2024 11:23 AM EST) Hemoglobin 9.8(L) 13.7 - 16.5 g/dL 06/14/2024 11:59 AM EST [facility] Comment:This result has been called to Danielle López by Satya Page on 06/14/2024 11:58:33. Hematocrit 30.5(L) 40.5 - 48.5 % 06/14/2024 11:59 AM EST [facility] Comment:This result has been called to Danielle López by Satya Page on 06/14/2024 11:58:40, and has been read back. Blood ARTERIAL BLOOD / Unknown 06/14/2024 11:23 AM EST 06/14/2024 11:27 AM EST Comment:Pre-op diagnosis: CAD Bobby oLja MD HEMATOLOGY ORDERABLE S [facility] [address] * (ABNORMAL) Blood Gas, Arterial POC (06/14/2024 10:58 AM EST) pH, Arterial 7.38 7.35 - 7.45 06/14/2024 10:59 AM EST [facility] PCO2, Arterial 43 35 - 45 mmHg 06/14/2024 10:59 AM EST [facility] PO2, Arterial 401(H) 85 - 104 mmHg 06/14/2024 10:59 AM EST [facility] Bicarbonate, Arterial 24.8 20.0 - 26.0 mmol/L 06/14/2024 10:59 AM [facility] Base Excess, Arterial -0.5 -3.0 - 3.0 mmol/L 06/14/2024 10:59 AM [facility] Hemoglobin, Arterial 11.9(L) 13.7 - 16.5 g/dL 06/14/2024 10:59 AM [facility] Oxyhemoglobin, Arterial 99.0(H) 94.0 - 97.0 % 06/14/2024 10:59 AM [facility] Carboxyhemoglobin , Arterial 0.3 % 06/14/2024 10:59 AM [facility] Comment: Nonsmokers: 0.5-1.5% COHB ?? Smokers: Variable ??but usually less than 10% ?? Toxic: 20-30% COHB ?? Lethal: Greater than 60% COHB Methemoglobin, Arterial 0.3 <=1.5 % 06/14/2024 10:59 AM [facility] Sodium, Arterial 128(L) 135 - 145 mmol/L 06/14/2024 10:59 AM [facility] Potassium, Arterial 6.6(HHH) 3.5 - 5.0 mmol/L 06/14/2024 10:59 AM [facility] Chloride, Arterial 99 98 - 107 mmol/L 06/14/2024 10:59 AM [facility] Lactate, Arterial 1.3 0.5 - 2.2 mmol/L 06/14/2024 10:59 AM [facility] IONIZED CALCIUM, ARTERIAL 1.00(L) 1.15 - 1.33 mmol/L 06/14/2024 10:59 AM [facility] Glucose, Arterial 155 65 - 199 mg/dL 06/14/2024 10:59 AM [facility] Comment:Glucose Concentratio n >=200 mg/dL plus symptoms is consistent with Diabetes Mellitus. Blood ARTERIAL BLOOD / Unknown 06/14/2024 10:58 AM EST 06/14/2024 10:59 AM EST Haja Byrnes MD POINT OF CARE TEST O RDERAPIETER [facility] [place] [address] * (ABNORMAL) Blood Gas, Arterial POC (06/14/2024 10:26 AM EST) pH, Arterial 7.29(LLL) 7.35 - 7.45 06/14/2024 10:27 AM [facility] PCO2, Arterial 43 35 - 45 mmHg 06/14/2024 10:27 AM [facility] PO2, Arterial 369(H) 85 - 104 mmHg 06/14/2024 10:27 AM [facility] Bicarbonate, Arterial 19.9(L) 20.0 - 26.0 mmol/L 06/14/2024 10:27 AM [facility] Base Excess, Arterial -6.7(L) -3.0 - 3.0 mmol/L 06/14/2024 10:27 AM [facility] Hemoglobin, Arterial 12.6(L) 13.7 - 16.5 g/dL 06/14/2024 10:27 AM [facility] Oxyhemoglobin, Arterial 99.1(H) 94.0 - 97.0 % 06/14/2024 10:27 AM [facility] Carboxyhemoglobin , Arterial 0.1 % 06/14/2024 10:27 AM [facility] Comment: Nonsmokers: 0.5-1.5% COHB ?? Smokers: Variable ??but usually less than 10% ?? Toxic: 20-30% COHB ?? Lethal: Greater than 60% COHB Methemoglobin, Arterial 0.4 <=1.5 % 06/14/2024 10:27 AM [facility] Sodium, Arterial 129(L) 135 - 145 mmol/L 06/14/2024 10:27 AM [facility] Potassium, Arterial 5.0 3.5 - 5.0 mmol/L 06/14/2024 10:27 AM [facility] Chloride, Arterial 99 98 - 107 mmol/L 06/14/2024 10:27 AM [facility] Lactate, Arterial 0.9 0.5 - 2.2 mmol/L 06/14/2024 10:27 AM [facility] IONIZED CALCIUM, ARTERIAL 1.05(L) 1.15 - 1.33 mmol/L 06/14/2024 10:27 AM [facility] Glucose, Arterial 149 65 - 199 mg/dL 06/14/2024 10:27 AM [facility] Comment:Glucose Concentratio n >=200 mg/dL plus symptoms is consistent with Diabetes Mellitus. Blood ARTERIAL BLOOD / Unknown 06/14/2024 10:26 AM EST 06/14/2024 10:27 AM EST Haja Byrnes MD POINT OF CARE TEST O RDERABLES [facility] [place] [address] * (ABNORMAL) Blood Gas, Arterial POC (06/14/2024 10:25 AM EST) pH, Arterial 7.26(LLL) 7.35 - 7.45 06/14/2024 10:26 AM [facility] PCO2, Arterial 48(H) 35 - 45 mmHg 06/14/2024 10:26 AM [facility] Bicarbonate, Arterial 21.2 20.0 - 26.0 mmol/L 06/14/2024 10:26 AM [facility] Base Excess, Arterial -5.8(L) -3.0 - 3.0 mmol/L 06/14/2024 10:26 AM [facility] Hemoglobin, Arterial 12.5(L) 13.7 - 16.5 g/dL 06/14/2024 10:26 AM [facility] Oxyhemoglobin, Arterial 82.3(L) 94.0 - 97.0 % 06/14/2024 10:26 AM [facility] Carboxyhemoglobin , Arterial 0.5 % 06/14/2024 10:26 AM [facility] Comment: Nonsmokers: 0.5-1.5% COHB ?? Smokers: Variable ??but usually less than 10% ?? Toxic: 20-30% COHB ?? Lethal: Greater than 60% COHB Methemoglobin, Arterial 0.5 <=1.5 % 06/14/2024 10:26 AM [facility] Sodium, Arterial 131(L) 135 - 145 mmol/L 06/14/2024 10:26 AM [facility] Potassium, Arterial 4.6 3.5 - 5.0 mmol/L 06/14/2024 10:26 AM [facility] Chloride, Arterial 103 98 - 107 mmol/L 06/14/2024 10:26 AM [facility] Lactate, Arterial 0.8 0.5 - 2.2 mmol/L 06/14/2024 10:26 AM [facility] IONIZED CALCIUM, ARTERIAL 0.91(LLL) 1.15 - 1.33 mmol/L 06/14/2024 10:26 AM [facility] Glucose, Arterial 148 65 - 199 mg/dL 06/14/2024 10:26 AM [facility] Comment:Glucose Concentratio n >=200 mg/dL plus symptoms is consistent with Diabetes Mellitus. Blood ARTERIAL BLOOD / Unknown 06/14/2024 10:25 AM EST 06/14/2024 10:26 AM EST Haja Byrnes MD POINT OF CARE TEST O RDERABLES [facility] [place] [address] * Surgical Pathology (06/14/2024 9:53 AM EST) Case Report Surgical Pathology Report ? Case: [id number] ? Authorizing Provider: ??Bobby Loja, ? Collected: ? 06/14/2024 0953 ? Ordering Location: ? Main Operating Room [facility] ?? Received: ?06/14/2024 1413 ? [facility] ? Pathologist: ? Sandra Salas, MD ? Specimens: ?? A) - Soft Tissue Mass, mediastinal mass ? B) - Heart, Atrial Appendage, Left ? 06/18/2024 10:18 AM [facility] Final Diagnosis A. Soft Tissue Mass, Mediastinal Mass, Excision: - Atrophic thymic tissue B. Heart, Atrial Appendage, Left, Excision: - Mild myocyte hypertrophy 06/18/2024 10:18 AM [facility] Clinical Information A. Soft Tissue Mass, mediastinal mass Soft tissue mass Mediastinal mass B. Heart, Atrial Appendage, Left, *Other - as specified in Clinical Information MARIALUISA 06/18/2024 10:18 AM [facility] Gross Description A. Soft Tissue Mass, mediastinal mass. A - Labeled/Fixative : Mediastinal mass, fresh. Quantity/Size: Single, 7.2 x 5.3 x 1.2 cm. Tissue Description: Unoriented, intact portion of soft, rodriguez-yellow, lobulated tissue. The cut surface is homogenously pale-rodriguez, yellow and lobulated. No lesions or nodules are identified. Inking: External surface inked black Sections/Process ing: [employer] Manager sections in 4 cassettes labeled A1-A4. cmk B. Heart, Atrial Appendage, Left, . B - Labeled/Fixative : Heart, atrial appendage, left, fresh. Quantity/Size: Single, 3.3 x 1.5 x 0.8 cm. Tissue Description: Portion of heart tissue consisting of rodriguez-white, semitranslucent, smooth endocardium with rodriguez-brown muscular myocardium and thin translucent epicardium with adherent adipose tissue. No areas of discoloration identified. Sections/Process ing: [employer]inder[employer] Production Manager sections in 1 cassette labeled B1. cmk 06/18/2024 10:18 AM [facility] Result Note Routine 06/18/2024 10:18 AM [facility] Tissue SOFT TISSUE MASS / Unknown 06/14/2024 9:53 AM EST 06/14/2024 2:13 PM EST Comment:Mediastinal mass Tissue specimen (specimen) LEFT ATRIAL APPENDAGE ABSENT / Unknown 06/14/2024 10:54 AM EST 06/14/2024 2:13 PM EST Comment:MARIALUISA Bobby Loja MD PATHOLOGY/CYTOLOGY O RDERABLES [facility] [place] [address] * Cooximetry, POC (06/14/2024 9:00 AM EST) pO2, Coox 57 mmHg 06/14/2024 9:04 AM EST [facility] PO2 Corrected, COOX 50 mmHg 06/14/2024 9:04 AM EST [facility] Hemoglobin, Coox 14.3 13.7 - 16.5 g/dL 06/14/2024 9:04 AM [facility] Oxyhemoglobin, Coox 86.2 % 06/14/2024 9:04 AM EST [facility] Carboxyhemoglobi n, Coox 0.3 % 06/14/2024 9:04 AM EST [facility] Comment: Nonsmokers: 0.5-1.5% COHB ?? Smokers: Variable ??but usually less than 10% ?? Toxic: 20-30% COHB ?? Lethal: Greater than 60% COHB Methemoglobin, Coox 0.3 <=1.5 % 06/14/2024 9:04 AM EST [facility] Temperature Coox 35.2 C 06/14/20 24 9:04 AM EST [facility] Blood (Mixed Venous) 06/14/2024 9:00 AM EST 06/14/2024 9:04 AM EST Haja Byrnes MD POINT OF CARE TEST O RDERAPIETER [facility] [place] [address] * (ABNORMAL) Blood Gas, Arterial POC (06/14/2024 8:39 AM EST) pH, Arterial 7.37 7.35 - 7.45 06/14/2024 8:40 AM [facility] PCO2, Arterial 42 35 - 45 mmHg 06/14/2024 8:40 AM [facility] PO2, Arterial 341(H) 85 - 104 mmHg 06/14/2024 8:40 AM [facility] Bicarbonate, Arterial 23.7 20.0 - 26.0 mmol/L 06/14/2024 8:40 AM [facility] Base Excess, Arterial -1.6 -3.0 - 3.0 mmol/L 06/14/2024 8:40 AM [facility] Hemoglobin, Arterial 15.2 13.7 - 16.5 g/dL 06/14/2024 8:40 AM [facility] Oxyhemoglobin, Arterial 99.2(H) 94.0 - 97.0 % 06/14/2024 8:40 AM [facility] Carboxyhemoglobin , Arterial 0.1 % 06/14/2024 8:40 AM [facility] Comment: Nonsmokers: 0.5-1.5% COHB ?? Smokers: Variable ??but usually less than 10% ?? Toxic: 20-30% COHB ?? Lethal: Greater than 60% COHB Methemoglobin, Arterial 0.3 <=1.5 % 06/14/2024 8:40 AM [facility] Sodium, Arterial 136 135 - 145 mmol/L 06/14/2024 8:40 AM [facility] Potassium, Arterial 4.2 3.5 - 5.0 mmol/L 06/14/2024 8:40 AM [facility] Chloride, Arterial 102 98 - 107 mmol/L 06/14/2024 8:40 AM [facility] Lactate, Arterial 0.9 0.5 - 2.2 mmol/L 06/14/2024 8:40 AM [facility] IONIZED CALCIUM, ARTERIAL 1.17 1.15 - 1.33 mmol/L 06/14/2024 8:40 AM [facility] Glucose, Arterial 121 65 - 199 mg/dL 06/14/2024 8:40 AM EST [facility] Comment:Glucose Concentratio n >=200 mg/dL plus symptoms is consistent with Diabetes Mellitus. Blood ARTERIAL BLOOD / Unknown 06/14/2024 8:39 AM EST 06/14/2024 8:40 AM EST Haja Byrnes MD POINT OF CARE TEST O RDERABLES [facility] [place] [address] * Transesophageal Echo/OR (06/14/2024 7:20 AM EST) Anatomical Region Laterality Modality Cardiac Other 06/14/2024 7:20 AM EST Narrative 06/14/2024 4:36 PM EST Version: 2 Study ID: [id number] [address] [place] [address] ?OR Transesophageal Echo Report Name: GEORGE MEHTA [...] of this mass after consultation with other plugger worker experts and the decision was made by [...] MD - 06/14/2024 Version: 2 Study ID: [id number] [address] [place], [place] [id number] ORTransesophageal Echo Report Name: GEORGE MEHTA Study Date: 06/14/2024,7: 20 AM Patient Location:^OR16^A : 1955 Age: 69 Years Gender: Male Ordering Physician: BOBBY LOJA Referring Physician: NEHAL QUINTERO Conclusions This [...] of this mass after consultation with other plugger worker experts and thedecision was made by surgeon [...] - 199 mg/dL 06/14/2024 7:12 AM EST [facility] Comment:Supplemental ranges: <140 mg/dL before meals <180 mg/dL all other times of the day. Blood CAPILLARY BLOOD / Unknown 06/14/2024 7:11 AM EST 06/14/2024 7:12 AM EST Haja Byrnes MD POINT OF CARE TEST O NIKA Performing Organization Address [facility] Co de Phone Number [facility] [place] [address] * POC, GLUCOSE (06/14/2024 4:30 AM EST) Glucometer, POC 85 65 - 199 mg/dL 06/14/2024 4:30 AM EST [facility] Comment:Supplemental ranges: <140 mg/dL before meals <180 mg/dL all other times of the day. Blood CAPILLARY BLOOD / Unknown 06/14/2024 4:30 AM EST 06/14/2024 4:30 AM EST Haja Byrnes MD POINT OF CARE TEST Abimael MAHER Performing Organization Address [facility]/ZIP Co de Phone Number [facility] [place] [address] * (ABNORMAL) Heparin (unfractionated) Level (06/14/2024 12:12 AM EST) UF Heparin 1.02([facility]) IU/mL 06/14/2024 12:46 AM EST [facility] Comment: Heparin (anti-Xa) levels should be [...] MD HEMATOLOGY ORDERABLE S Performing Organization Address City/State/[facility] Co de Phone Number [facility] [place] [address] * (ABNORMAL) CBC (with Diff) (06/14/2024 12:12 AM EST) White Blood Cell 10.51(H) 4.00 - 9.50 x10(3)/mc L 06/14/2024 12:38 AM [facility] Red Blood Cell 4.99 4.58 - 5.54 x10(6)/mc L 06/14/2024 12:38 AM [facility] Hemoglobin 14.9 13.7 - 16.5 g/dL 06/14/2024 12:38 AM [facility] Hematocrit 45.9 40.5 - 48.5 % 06/14/2024 12:38 AM [facility] Mean Cell Volume 92.0 82.9 - 93.1 fL 06/14/2024 12:38 AM [facility] Mean Cell Hemoglobin 29.9 27.5 - 32.1 pg 06/14/2024 12:38 AM [facility] Mean Cell Hemoglobin Concentration 32.5 32.0 - 35.7 g/dL 06/14/2024 12:38 AM [facility] Platelet 162 145 - 357 x10(3)/mc L 06/14/2024 12:38 AM [facility] Mean Platelet Volume 10.1 7.6 - 12.9 fL 06/14/2024 12:38 AM [facility] RDW Standard Deviation 46.9(H) 36.0 - 45.0 fL 06/14/2024 12:38 AM [facility] RDW coefficient of variation 13.8 11.4 - 13.8 % 06/14/2024 12:38 AM [facility] NRBC% auto 0.0 % 06/14/2024 12:38 AM [facility] NRBC Absolute <0.01 <0.01 x10(3)/mc L 06/14/2024 12:38 AM [facility] Neutrophil % 56.7 % 06/14/2024 12:38 AM [facility] Neutrophil Absolute (ANC) - Automated 5.96 1.70 - 6.10 x10(3)/mc L 06/14/2024 12:38 AM [facility] Lymph % 26.8 % 06/14/2024 12:38 AM [facility] Lymph Absolute 2.82 0.90 - 3.20 x10(3)/mc L 06/14/2024 12:38 AM [facility] Monocyte % 11.2 % 06/14/2024 12:38 AM [facility] Monocyte Absolute 1.18(H) 0.30 - 0.90 x10(3)/mc L 06/14/2024 12:38 AM [facility] Eos % 3.9 % 06/14/2024 12:38 AM [facility] Eos Absolute 0.41(H) 0.00 - 0.40 x10(3)/mc L 06/14/2024 12:38 AM [facility] Basophil % 0.8 % 06/14/2024 12:38 AM [facility] Baso Absolute 0.08 0.00 - 0.10 x10(3)/mc L 06/14/2024 12:38 AM EST [facility] Immature Gran % 0.6 % 12:38 AM [facility] Immature Gran Absolute 0.06(H) 0.00 - 0.04 x10(3)/mc L 06/14/2024 12:38 AM EST [facility] Blood VENOUS BLOOD SPECIMEN / Unknown Venipuncture / Unknown 06/14/2024 12:12 AM EST 06/14/2024 12:29 AM EST Shahnaz Scanlon MD HEMATOLOGY ORDERABLE S [facility] [address] * Magnesium (06/14/2024 12:12 AM EST) Magnesium 0.74 0.69 - 1.07 mMol/L 06/14/2024 12:57 AM [facility] Blood VENOUS BLOOD SPECIMEN / Unknown Venipuncture / Unknown 06/14/2024 12:12 AM EST 06/14/2024 12:29 AM EST Shahnaz Scanlon MD CHEMISTRY ORDERABLES [facility] [place] [address] * (ABNORMAL) Basic Metabolic Panel (06/14/2024 12:12 AM EST) Glucose 97 65 - 199 mg/dL 06/14/2024 12:57 AM EST [facility] Comment:Glucose Concentratio n >=200 mg/dL plus symptoms is consistent with Diabetes Mellitus. Blood Urea Nitrogen 25(H) 10 - 20 mg/dL 06/14/2024 12:57 AM EST [facility] Creatinine 1.14 0.80 - 1.50 mg/dL 06/14/2024 12:57 AM [facility] Sodium 135 135 - 145 mMol/L 06/14/2024 12:57 AM [facility] Potassium 4.1 3.5 - 5.0 mMol/L 06/14/2024 12:57 AM [facility] Chloride 100 98 - 107 mMol/L 06/14/2024 12:57 AM [facility] Carbon Dioxide 25 22 - 31 mMol/L 06/14/2024 12:57 AM [facility] Anion Gap 10 5 - 15 mMol/L 06/14/2024 12:57 AM [facility] Calcium 9.5 8.5 - 10.5 mg/dL 06/14/2024 12:57 AM [facility] Est Glomerular Filtration Rate - Male 70 mL/min/1. 73 m?? 06/14/2024 12:57 AM [facility] Comment: This patient's estimated GFR [...] AM EST Shahnaz Scanlon MD CHEMISTRY ORDERABLES [facility] [place] [address] * Scan Doc: Implantable Devices (06/14/2024 12:00 AM EST) Narrative 06/14/2024 12:00 AM EST Ordered by an unspecified provider. Scanning Provider MEDIA MGR SCAN EXT O RDR/RSLT * POC, GLUCOSE (06/13/2024 11:12 PM EST) Glucometer, POC 104 65 - 199 mg/dL 06/13/2024 11:13 PM EST [facility] Comment:Supplemental ranges: <140 mg/dL before meals <180 mg/dL all other times of the day. Blood CAPILLARY BLOOD / Unknown 06/13/2024 11:12 PM EST 06/13/2024 11:13 PM EST Haja Byrnes MD POINT OF CARE TEST O NIKA Performing Organization Address City/[facility]/ZIP Co de Phone Number [facility] [place] [address] * (ABNORMAL) POC, GLUCOSE (06/13/2024 8:03 PM EST) Glucometer, POC 206(H) 65 - 199 mg/dL 06/13/2024 8:03 PM EST [facility] Comment:Supplemental ranges: <140 mg/dL before meals <180 mg/dL all other times of the day. Blood CAPILLARY BLOOD / Unknown 06/13/2024 8:03 PM EST 06/13/2024 8:03 PM EST Haja Byrnes MD POINT OF CARE TEST O NIKA [facility] [address] * Heparin (unfractionated) Level (06/13/2024 4:11 PM EST) UF Heparin 0.76 IU/mL 06/13/2024 4:24 PM EST [facility] Comment: Heparin (anti-Xa) levels should be [...] MD HEMATOLOGY ORDERABLE S Performing Organization Address City/[facility]/ZIP Co de Phone Number [facility] [place] [address] * ABORH RECHECK (06/13/2024 4:11 PM EST) Pathologist [facility] ABORH Recheck O POSITIVE 06/13/2024 4:50 PM EST [facility] Blood VENOUS BLOOD SPECIMEN / Unknown Venipuncture / Unknown 06/13/2024 4:11 PM EST 06/13/2024 4:19 PM EST Haja Byrnes MD BLOOD BANK LAB ORDER [place]SE[place] Performing Organization Address City/[facility] Co de Phone Number [facility] [place] [address] * (ABNORMAL) POC, GLUCOSE (06/13/2024 4:09 PM EST) Glucometer, POC 216(H) 65 - 199 mg/dL 06/13/2024 4:10 PM EST [facility] Comment:Supplemental ranges: <140 mg/dL before meals <180 mg/dL all other times of the day. Blood CAPILLARY BLOOD / Unknown 06/13/2024 4:09 PM EST 06/13/2024 4:10 PM EST Haja Byrnes MD POINT OF CARE TEST O RDERABLES [facility] [address] * Type and screen ([facility]/CGP/RAFITA) (06/13/2024 11:53 AM EST) ABORH Type O POSITIVE 06/13/2024 1:16 PM EST [facility] PATIENT HISTORY Not Found 06/13/2024 1:16 PM EST [facility] Expires at [id number] on: 06/16/2024 06/13/2024 1:16 PM EST [facility] ANTIBODY SCREEN AUTOMATED Negative 06/13/2024 1:16 PM EST [facility] T&S only valid at [facility] 06/13/2024 1:16 PM EST [facility] Blood VENOUS BLOOD SPECIMEN / Unknown Venipuncture / Unknown 06/13/2024 11:53 AM EST 06/13/2024 11:56 AM EST Narrative [facility] - 06/13/2024 1:16 PM EST This Type and Screen result is only valid at the [facility] Haja Byrnes MD BLOOD BANK LAB ORDER EUSEBIA Performing Organization Address [facility] Co de Phone Number [facility] [place] [address] * POC, GLUCOSE (06/13/2024 11:50 AM EST) [facility] Glucometer, POC [phone] - 199 mg/dL 06/13/2024 11:51 AM EST [facility] Comment:Supplemental ranges: <140 mg/dL before meals <180 mg/dL all other times of the day. Blood CAPILLARY BLOOD / Unknown 06/13/2024 11:50 AM EST 06/13/2024 11:51 AM EST Haja Byrnes MD POINT OF CARE TEST O RDERABLES Performing Organization Address City/[facility]/ZIP Co de Phone Number [facility] [place] [address] * XR Chest One View (06/13/2024 10:35 AM EST) WORKSTATION ID [id number] RAD Anatomical Region Laterality Modality Chest N/A [...] who have questions please contact the health client care manager that requested your imaging first. ? Electronically signed by: Jyothi Simon MD, [facility] ([phone]), at 06/13/2024 10:43 AM Narrative 06/13/2024 10:43 AM EST EXAMINATION: XR [...] patients who have questions please contactthe health client care manager that requested your imaging first. Electronically signed by: Jyothi Simon MD, [facility]([phone]), at 06/13/2024 10:43 AM Haja Byrnes MD IMG DX ORDERABLES * CARDIAC CATHETERIZATION (06/13/2024 9:02 AM EST) Anatomical Region Laterality Modality Other Narrative 06/15/2024 9:07 AM EST ?[facility] ? Cardiac Catheterization/Intervention Report ? Patient Name: George MehtaViry ? Procedure Date: 06/13/2024 ? A #: [id number] ? Primary Physician: Nuha Shen I ? Case #: [id number] ? File Name: [id number] ? Catheterization Order Number: [id number] ? [facility] ? Final Report [place], [place] ? Patient Name: ? George L. Tyson ? ID#: ?[id number] ? : ?1955 ? Procedure Date: ? June 13, 2024 ?Case #: ? [id number] ? Room: ? 6 ? Case Physician: ? Nuha Shen M.D. ? Start: ?09:20 ?Fellow: ? Junaid Tellez ? Admission: ??06/02/2024 ? Referring Physician: ??Junaid [...] ?was designated as ASA Class IV. The [facility] clinical frailty scale is 5: [...] procedure was Urgent. The indication for ?the pharmaceutical laboratory technician visit is ACS greater than [...] angiography, vascular ?ultrasound and IABP insertion in pharmaceutical laboratory technician. ? Nuha Shen M.D. ? Electronically Signed by: Nuha Shen M.D. ? Report Finalized: 06/15/2024 ??08:59 ? Procedure Note Nuha Shen MD - 06/15/2024 [facility] Cardiac Catheterization/Intervention Report Patient Name: George Mehta Procedure Date: 06/13/2024 A #: [id number] Primary Physician: Nuha Shen I Case #: [id number] File Name: [id number] Catheterization Order Number: [id number] [facility] FinalReport [place], [place] Patient Name: George Mehta ID#:[id number] :1955 Procedure Date: June 13, 2024 Case [...] was designated as ASA Class IV. The [facility] clinical frailty scale is5: Mildly [...] diagnostic procedure was Urgent. The indicationfor the pharmaceutical laboratory technician visit is ACS greater than [...] sedation nurse. Case time =00:27. Dr. Nuha I Hermelinda, M.D. performed the access site angiography,vascular ultrasound and IABP insertion in pharmaceutical laboratory technician. Nuha Shen M.D. Electronically Signed by: Nuha Shen M.D. Report Finalized: 06/15/2024 08:59 Nuha Rojo MD CARDIAC CATH ORDERA BLES * Potassium (06/13/2024 7:48 AM EST) Potassium 4.5 3.5 - 5.0 mMol/L 06/13/2024 8:28 AM EST [facility] Blood VENOUS BLOOD SPECIMEN / Unknown Venipuncture / Unknown 06/13/2024 7:48 AM EST 06/13/2024 7:55 AM EST Shahnaz Scanlon MD CHEMISTRY ORDERABLES Performing Organization Address City/[facility]/ZIP Co de Phone Number [facility] [place] [address] * POC, GLUCOSE (06/13/2024 7:41 AM EST) Glucometer, POC 126 65 - 199 mg/dL 06/13/2024 7:41 AM EST [facility] Comment:Supplemental ranges: <140 mg/dL before meals <180 mg/dL all other times of the day. Blood CAPILLARY BLOOD / Unknown 06/13/2024 7:41 AM EST 06/13/2024 7:41 AM EST Ethel Carrillo MD POINT OF CARE TEST O RDERABLES [facility] [place] [address] * POC, GLUCOSE (06/13/2024 3:25 AM EST) Glucometer, POC 99 65 - 199 mg/dL 06/13/2024 3:25 AM EST [facility] Comment:Supplemental ranges: <140 mg/dL before meals <180 mg/dL all other times of the day. Blood CAPILLARY BLOOD / Unknown 06/13/2024 3:25 AM EST 06/13/2024 3:25 AM EST Ethel Carrillo MD POINT OF CARE TEST O RDERABLES Performing Organization Address City/[facility]/ZIP Co de Phone Number [facility] [place] [address] * Heparin (unfractionated) Level (06/13/2024 2:26 AM EST) UF Heparin 0.60 IU/mL 06/13/2024 3:32 AM EST [facility] Comment: Heparin (anti-Xa) levels should be [...] MD HEMATOLOGY ORDERABLE S Performing Organization Address City/[facility]/ZIP Co de Phone Number [facility] [place] [address] * (ABNORMAL) CBC (with Diff) (06/13/2024 2:26 AM EST) White Blood Cell 9.98(H) 4.00 - 9.50 x10(3)/mc L 06/13/2024 2:[address] AM [facility] Red Blood Cell 5.11 4.58 - 5.54 x10(6)/mc L 06/13/2024 2:41 AM [facility] Hemoglobin 15.3 13.7 - 16.5 g/dL 06/13/2024 2:41 AM [facility] Hematocrit 47.1 40.5 - 48.5 % 06/13/2024 2:41 AM [facility] Mean Cell Volume 92.2 82.9 - 93.1 fL 06/13/2024 2:41 AM [facility] Mean Cell Hemoglobin 29.9 27.5 - 32.1 pg 06/13/2024 2:41 AM [facility] Mean Cell Hemoglobin Concentration 32.5 32.0 - 35.7 g/dL 06/13/2024 2:41 AM [facility] Platelet 194 145 - 357 x10(3)/mc L 06/13/2024 2:41 AM [facility] Mean Platelet Volume 9.7 7.6 - 12.9 fL 06/13/2024 2:41 AM [facility] RDW Standard Deviation 47.5(H) 36.0 - 45.0 fL 06/13/2024 2:41 AM [facility] RDW coefficient of variation 13.8 11.4 - 13.8 % 06/13/2024 2:41 AM [facility] NRBC% auto 0.0 % 06/13/2024 2:41 AM [facility] NRBC Absolute <0.01 <0.01 x10(3)/mc L 06/13/2024 2:41 AM [facility] Neutrophil % 48.8 % 06/13/2024 2:41 AM [facility] Neutrophil Absolute (ANC) - Automated 4.87 1.70 - 6.10 x10(3)/mc L 06/13/2024 2:41 AM EST [facility] Lymph % 35.3 % 06/13/2024 2:41 AM EST [facility] Lymph Absolute 3.52(H) 0.90 - 3.20 x10(3)/mc L 06/13/2024 2:41 AM [facility] Monocyte % 10.1 % 06/13/2024 2:41 AM EST [facility] Monocyte Absolute 1.01(H) 0.30 - 0.90 x10(3)/mc L 06/13/2024 2:41 AM EST [facility] Eos % 4.4 % 06/13/2024 2:41 AM [facility] Eos Absolute 0.44(H) 0.00 - 0.40 x10(3)/mc L 06/13/2024 2:41 AM EST [facility] Basophil % 0.9 % 06/13/2024 2:41 AM [facility] Baso Absolute 0.09 0.00 - 0.10 x10(3)/mc L 06/13/2024 2:41 AM EST [facility] Immature Gran % 0.5 % 2:41 AM [facility] Immature Gran Absolute 0.05(H) 0.00 - 0.04 x10(3)/mc L 06/13/2024 2:41 AM EST [facility] Blood VENOUS BLOOD SPECIMEN / Unknown Venipuncture / Unknown 06/13/2024 2:26 AM EST 06/13/2024 2:32 AM EST Shahnaz Scanlon MD HEMATOLOGY ORDERABLE S [facility] [place] [address] * Magnesium (06/13/2024 2:26 AM EST) Magnesium 0.78 0.69 - 1.07 mMol/L 06/13/2024 2:58 AM [facility] Blood VENOUS BLOOD SPECIMEN / Unknown Venipuncture / Unknown 06/13/2024 2:26 AM EST 06/13/2024 2:31 AM EST Shahnaz Scanlon MD CHEMISTRY ORDERABLES [facility] [place] [address] * (ABNORMAL) Basic Metabolic Panel (06/13/2024 2:26 AM EST) Glucose 121 65 - 199 mg/dL 06/13/2024 2:58 AM [facility] Comment:Glucose Concentratio n >=200 mg/dL plus symptoms is consistent with Diabetes Mellitus. Blood Urea Nitrogen 21(H) 10 - 20 mg/dL 06/13/2024 2:58 AM [facility] Creatinine 1.07 0.80 - 1.50 mg/dL 06/13/2024 2:58 AM [facility] Sodium 136 135 - 145 mMol/L 06/13/2024 2:58 AM [facility] Potassium 3.9 3.5 - 5.0 mMol/L 06/13/2024 2:58 AM [facility] Chloride 99 98 - 107 mMol/L 06/13/2024 2:58 AM [facility] Carbon Dioxide 27 22 - 31 mMol/L 06/13/2024 2:58 AM [facility] Anion Gap 10 5 - 15 mMol/L 06/13/2024 2:58 AM [facility] Calcium 9.7 8.5 - 10.5 mg/dL 06/13/2024 2:58 AM [facility] Est Glomerular Filtration Rate - Male 76 mL/min/1. 73 m?? 06/13/2024 2:58 AM [facility] Comment: This patient's estimated GFR [...] Scanlon MD CHEMISTRY ORDERABLES Performing Organization Address [facility] Co de Phone Number [facility] [place] [address] * POC, GLUCOSE (06/12/2024 11:53 PM EST) Glucometer, POC 141 65 - 199 mg/dL 06/12/2024 11:54 PM EST [facility] Comment:Supplemental ranges: <140 mg/dL before meals <180 mg/dL all other times of the day. Blood CAPILLARY BLOOD / Unknown 06/12/2024 11:53 PM EST 06/12/2024 11:54 PM EST Ethel Carrillo MD POINT OF CARE TEST O RDERABLES Performing Organization Address [facility] Co de Phone Number [facility] [place] [address] * POC, GLUCOSE (06/12/2024 7:32 PM EST) Glucometer, POC 158 65 - 199 mg/dL 06/12/2024 7:32 PM EST [facility] Comment:Supplemental ranges: <140 mg/dL before meals <180 mg/dL all other times of the day. Blood CAPILLARY BLOOD / Unknown 06/12/2024 7:32 PM EST 06/12/2024 7:32 PM EST Ethel Carrillo MD POINT OF CARE TEST O NIKA Performing Organization Address [facility] Co de Phone Number [facility] [place] [address] * POC, GLUCOSE (06/12/2024 3:41 PM EST) Glucometer, POC 113 65 - 199 mg/dL 06/12/2024 3:41 PM EST [facility] Comment:Supplemental ranges: <140 mg/dL before meals <180 mg/dL all other times of the day. Blood CAPILLARY BLOOD / Unknown 06/12/2024 3:41 PM EST 06/12/2024 3:41 PM EST Ethel Carrillo MD POINT OF CARE TEST bAimael MAHER Performing Organization Address [facility] Co de Phone Number [facility] [place] [address] * Potassium (06/12/2024 2:19 PM EST) Potassium 4.5 3.5 - 5.0 mMol/L 06/12/2024 2:45 PM EST [facility] Blood VENOUS BLOOD SPECIMEN / Unknown Venipuncture / Unknown 06/12/2024 2:19 PM EST 06/12/2024 2:23 PM EST Shahnaz Scanlon MD CHEMISTRY ORDERABLES Performing Organization Address [facility] Co de Phone Number [facility] [address] * (ABNORMAL) POC, GLUCOSE (06/12/2024 11:21 AM EST) Glucometer, POC 207(H) 65 - 199 mg/dL 06/12/2024 11:21 AM EST [facility] Comment:Supplemental ranges: <140 mg/dL before meals <180 mg/dL all other times of the day. Blood CAPILLARY BLOOD / Unknown 06/12/2024 11:21 AM EST 06/12/2024 11:22 AM EST Ethel Carrillo MD POINT OF CARE TEST O NIKA Performing Organization Address City/[facility] Co de Phone Number [facility] [place] [address] * POC, GLUCOSE (06/12/2024 8:00 AM EST) Glucometer, POC 169 65 - 199 mg/dL 06/12/2024 8:01 AM EST [facility] Comment:Supplemental ranges: <140 mg/dL before meals <180 mg/dL all other times of the day. Blood CAPILLARY BLOOD / Unknown 06/12/2024 8:00 AM EST 06/12/2024 8:01 AM EST Ethel Carrillo MD POINT OF CARE TEST O NIKA Performing Organization Address [facility] de Phone Number [facility] [place] [address] * POC, GLUCOSE (06/12/2024 4:25 AM EST) Glucometer, POC 132 65 - 199 mg/dL 06/12/2024 4:26 AM EST [facility] Comment:Supplemental ranges: <140 mg/dL before meals <180 mg/dL all other times of the day. Blood CAPILLARY BLOOD / Unknown 06/12/2024 4:25 AM EST 06/12/2024 4:26 AM EST Ethel Carrillo MD POINT OF CARE TEST O NIKA Performing Organization Address City/[facility] Co de Phone Number [facility] [address] * Heparin (unfractionated) Level (06/12/2024 3:03 AM EST) UF Heparin 0.55 IU/mL 06/12/2024 3:44 AM EST [facility] Comment: Heparin (anti-Xa) levels should be [...] MD HEMATOLOGY ORDERABLE S Performing Organization Address City/State/[facility] Co de Phone Number [facility] [place] [address] * (ABNORMAL) CBC (with Diff) (06/12/2024 3:03 AM EST) White Blood Cell 9.69(H) 4.00 - 9.50 x10(3)/mc L 06/12/2024 3:36 AM EST [facility] Red Blood Cell 5.05 4.58 - 5.54 x10(6)/mc L 06/12/2024 3:36 AM EST [facility] Hemoglobin 15.2 13.7 - 16.5 g/dL 06/12/2024 3:36 AM EST [facility] Hematocrit 46.6 40.5 - 48.5 % 06/12/2024 3:36 AM [facility] Mean Cell Volume 92.3 82.9 - 93.1 fL 06/12/2024 3:36 AM [facility] Mean Cell Hemoglobin 30.1 27.5 - 32.1 pg 06/12/2024 3:36 AM [facility] Mean Cell Hemoglobin Concentration 32.6 32.0 - 35.7 g/dL 06/12/2024 3:36 AM [facility] Platelet 194 145 - 357 x10(3)/mc L 06/12/2024 3:36 AM [facility] Mean Platelet Volume 10.1 7.6 - 12.9 fL 06/12/2024 3:36 AM [facility] RDW Standard Deviation 47.7(H) 36.0 - 45.0 fL 06/12/2024 3:36 AM [facility] RDW coefficient of variation 14.0(H) 11.4 - 13.8 % 06/12/2024 3:36 AM [facility] NRBC% auto 0.0 % 06/12/2024 3:36 AM [facility] NRBC Absolute <0.01 <0.01 x10(3)/mc L 06/12/2024 3:36 AM [facility] Neutrophil % 49.9 % 06/12/2024 3:36 AM [facility] Neutrophil Absolute (ANC) - Automated 4.82 1.70 - 6.10 x10(3)/mc L 06/12/2024 3:36 AM [facility] Lymph % 33.5 % 06/12/2024 3:36 AM [facility] Lymph Absolute 3.25(H) 0.90 - 3.20 x10(3)/mc L 06/12/2024 3:36 AM [facility] Monocyte % 11.1 % 06/12/2024 3:36 AM [facility] Monocyte Absolute 1.08(H) 0.30 - 0.90 x10(3)/mc L 06/12/2024 3:36 AM [facility] Eos % 4.1 % 06/12/2024 3:36 AM [facility] Eos Absolute 0.40 0.00 - 0.40 x10(3)/mc L 06/12/2024 3:36 AM [facility] Basophil % 0.8 % 06/12/2024 3:36 AM [facility] Baso Absolute 0.08 0.00 - 0.10 x10(3)/mc L 06/12/2024 3:36 AM [facility] Immature Gran % 0.6 % 3:36 AM [facility] Immature Gran Absolute 0.06(H) 0.00 - 0.04 x10(3)/mc L 06/12/2024 3:36 AM [facility] Blood VENOUS BLOOD SPECIMEN / Unknown Venipuncture / Unknown 06/12/2024 3:03 AM EST 06/12/2024 3:30 AM EST Shahnaz Scanlon MD HEMATOLOGY ORDERABLE S Performing Organization Address City/[facility]/ZIP Co de Phone Number [facility] [place] [address] * Magnesium (06/12/2024 3:03 AM EST) Magnesium 0.79 0.69 - 1.07 mMol/L 06/12/2024 4:01 AM [facility] Blood VENOUS BLOOD SPECIMEN / Unknown Venipuncture / Unknown 06/12/2024 3:03 AM EST 06/12/2024 3:30 AM EST Shahnaz Scanlon MD CHEMISTRY ORDERABLES [facility] [place] [address] * (ABNORMAL) Basic Metabolic Panel (06/12/2024 3:03 AM EST) Glucose 132 65 - 199 mg/dL 06/12/2024 4:01 AM [facility] Comment:Glucose Concentratio n >=200 mg/dL plus symptoms is consistent with Diabetes Mellitus. Blood Urea Nitrogen 23(H) 10 - 20 mg/dL 06/12/2024 4:01 AM [facility] Creatinine 1.15 0.80 - 1.50 mg/dL 06/12/2024 4:01 AM [facility] Sodium 138 135 - 145 mMol/L 06/12/2024 4:01 AM [facility] Potassium 3.8 3.5 - 5.0 mMol/L 06/12/2024 4:01 AM [facility] Chloride 98 98 - 107 mMol/L 06/12/2024 4:01 AM [facility] Carbon Dioxide 29 22 - 31 mMol/L 06/12/2024 4:01 AM [facility] Anion Gap 11 5 - 15 mMol/L 06/12/2024 4:01 AM [facility] Calcium 9.5 8.5 - 10.5 mg/dL 06/12/2024 4:01 AM [facility] Est Glomerular Filtration Rate - Male 70 mL/min/1. 73 m?? 06/12/2024 4:01 AM [facility] Comment: This patient's estimated GFR [...] AM EST Shahnaz Scanlon MD CHEMISTRY ORDERABLES [facility] [place] [address] * POC, GLUCOSE (06/11/2024 11:56 PM EST) Glucometer, POC 135 65 - 199 mg/dL 06/11/2024 11:56 PM EST [facility] Comment:Supplemental ranges: <140 mg/dL before meals <180 mg/dL all other times of the day. Blood CAPILLARY BLOOD / Unknown 06/11/2024 11:56 PM EST 06/11/2024 11:56 PM EST Ethel Carrillo MD POINT OF CARE TEST O NIKA Performing Organization Address City/[facility]/ZIP Co de Phone Number [facility] [place] [address] * (ABNORMAL) POC, GLUCOSE (06/11/2024 8:25 PM EST) Glucometer, POC 210(H) 65 - 199 mg/dL 06/11/2024 8:26 PM EST [facility] Comment:Supplemental ranges: <140 mg/dL before meals <180 mg/dL all other times of the day. Blood CAPILLARY BLOOD / Unknown 06/11/2024 8:25 PM EST 06/11/2024 8:26 PM EST Ethel Carrillo MD POINT OF CARE TEST O NIKA Performing Organization Address [facility]/ZIP Co de Phone Number [facility] [place] [address] * POC, GLUCOSE (06/11/2024 4:24 PM EST) Glucometer, POC 81 65 - 199 mg/dL 06/11/2024 4:24 PM EST [facility] Comment:Supplemental ranges: <140 mg/dL before meals <180 mg/dL all other times of the day. Blood CAPILLARY BLOOD / Unknown 06/11/2024 4:24 PM EST 06/11/2024 4:25 PM EST Ethel Carrillo MD POINT OF CARE TEST O NIKA [facility] [place] [address] * (ABNORMAL) POC, GLUCOSE (06/11/2024 11:08 AM EST) Glucometer, POC 233(H) 65 - 199 mg/dL 06/11/2024 11:08 AM EST [facility] Comment:Supplemental ranges: <140 mg/dL before meals <180 mg/dL all other times of the day. Blood CAPILLARY BLOOD / Unknown 06/11/2024 11:08 AM EST 06/11/2024 11:08 AM EST Ethel Carrillo MD POINT OF CARE TEST Abimael MAHER Performing Organization Address City/[facility]/ZIP Co de Phone Number [facility] [place] [address] * POC, GLUCOSE (06/11/2024 7:48 AM EST) Glucometer, POC 184 65 - 199 mg/dL 06/11/2024 7:49 AM EST [facility] Comment:Supplemental ranges: <140 mg/dL before meals <180 mg/dL all other times of the day. Blood CAPILLARY BLOOD / Unknown 06/11/2024 7:48 AM EST 06/11/2024 7:49 AM EST Melida Valdes MD POINT OF CARE TEST Abimael MAHER Performing Organization Address City/[facility]/ZIP Co de Phone Number [facility] [place] [address] * Heparin (unfractionated) Level (06/11/2024 5:31 AM EST) UF Heparin 0.55 IU/mL 06/11/2024 6:10 AM EST [facility] Comment: Heparin (anti-Xa) levels should be [...] MD HEMATOLOGY ORDERABLE S Performing Organization Address [facility] Co de Phone Number [facility] [place] [address] * POC, GLUCOSE (06/11/2024 3:57 AM EST) Glucometer, POC 132 65 - 199 mg/dL 06/11/2024 3:58 AM EST [facility] Comment:Supplemental ranges: <140 mg/dL before meals <180 mg/dL all other times of the day. Blood CAPILLARY BLOOD / Unknown 06/11/2024 3:57 AM EST 06/11/2024 3:58 AM EST Melida Valdes MD POINT OF CARE TEST O RDERABLES Performing Organization Address [facility] Co de Phone Number [facility] [place] [address] * (ABNORMAL) CBC (with Diff) (06/11/2024 2:13 AM EST) White Blood Cell 9.91(H) 4.00 - 9.50 x10(3)/mc L 06/11/2024 2:26 AM EST [facility] Red Blood Cell 5.13 4.58 - 5.54 x10(6)/mc L 06/11/2024 2:26 AM EST [facility] Hemoglobin 15.3 13.7 - 16.5 g/dL 06/11/2024 2:26 AM [facility] Hematocrit 47.5 40.5 - 48.5 % 06/11/2024 2:26 AM [facility] Mean Cell Volume 92.6 82.9 - 93.1 fL 06/11/2024 2:26 AM [facility] Mean Cell Hemoglobin 29.8 27.5 - 32.1 pg 06/11/2024 2:26 AM [facility] Mean Cell Hemoglobin Concentration 32.2 32.0 - 35.7 g/dL 06/11/2024 2:26 AM [facility] Platelet 184 145 - 357 x10(3)/mc L 06/11/2024 2:26 AM [facility] Mean Platelet Volume 9.7 7.6 - 12.9 fL 06/11/2024 2:26 AM [facility] RDW Standard Deviation 48.0(H) 36.0 - 45.0 fL 06/11/2024 2:26 AM [facility] RDW coefficient of variation 14.0(H) 11.4 - 13.8 % 06/11/2024 2:26 AM [facility] NRBC% auto 0.0 % 06/11/2024 2:26 AM [facility] NRBC Absolute <0.01 <0.01 x10(3)/mc L 06/11/2024 2:26 AM [facility] Neutrophil % 50.3 % 06/11/2024 2:26 AM [facility] Neutrophil Absolute (ANC) - Automated 4.98 1.70 - 6.10 x10(3)/mc L 06/11/2024 2:26 AM [facility] Lymph % 33.5 % 06/11/2024 2:26 AM [facility] Lymph Absolute 3.32(H) 0.90 - 3.20 x10(3)/mc L 06/11/2024 2:26 AM [facility] [facility] Monocyte % 10.9 % 06/11/2024 2:26 AM [facility] Monocyte Absolute 1.08(H) 0.30 - 0.90 x10(3)/mc L 06/11/2024 2:26 AM [facility] Eos % 4.1 % 06/11/2024 2:26 AM [facility] Eos Absolute 0.41(H) 0.00 - 0.40 x10(3)/mc L 06/11/2024 2:26 AM [facility] Basophil % 0.7 % 06/11/2024 2:26 AM [facility] Baso Absolute 0.07 0.00 - 0.10 x10(3)/mc L 06/11/2024 2:26 AM [facility] Immature Gran % 0.5 % 2:26 AM [facility] Immature Gran Absolute 0.05(H) 0.00 - 0.04 x10(3)/mc L 06/11/2024 2:26 AM [facility] Blood VENOUS BLOOD SPECIMEN / Unknown Venipuncture / Unknown 06/11/2024 2:13 AM EST 06/11/2024 2:19 AM EST Shahnaz Scanlon MD HEMATOLOGY ORDERABLE S Performing Organization Address City/State/[facility] Co de Phone Number [facility] [place] [address] * Magnesium (06/11/2024 2:13 AM EST) Magnesium 0.83 0.69 - 1.07 mMol/L 06/11/2024 2:51 AM [facility] Blood VENOUS BLOOD SPECIMEN / Unknown Venipuncture / Unknown 06/11/2024 2:13 AM EST 06/11/2024 2:19 AM EST Shahnaz Scanlon MD CHEMISTRY ORDERABLES [facility] [place] [place] [address] * (ABNORMAL) Basic Metabolic Panel (06/11/2024 2:13 AM EST) Glucose 148 65 - 199 mg/dL 06/11/2024 2:51 AM EST [facility] Comment:Glucose Concentratio n >=200 mg/dL plus symptoms is consistent with Diabetes Mellitus. Blood Urea Nitrogen 24(H) 10 - 20 mg/dL 06/11/2024 2:51 AM EST [facility] Creatinine 1.06 0.80 - 1.50 mg/dL 06/11/2024 2:51 AM [facility] Sodium 134(L) 135 - 145 mMol/L 06/11/2024 2:51 AM EST [facility] Potassium 4.1 3.5 - 5.0 mMol/L 06/11/2024 2:51 AM EST [facility] Chloride 96(L) 98 - 107 mMol/L 06/11/2024 2:51 AM [facility] Carbon Dioxide 28 22 - 31 mMol/L 06/11/2024 2:51 AM [facility] Anion Gap 10 5 - 15 mMol/L 06/11/2024 2:51 AM EST [facility] Calcium 9.4 8.5 - 10.5 mg/dL 06/11/2024 2:51 AM EST [facility] Est Glomerular Filtration Rate - Male 77 mL/min/1. 73 m?? 06/11/2024 2:51 AM EST [facility] Comment: This patient's estimated GFR [...] Scanlon MD CHEMISTRY ORDERABLES Performing Organization Address City/[facility]/ZIP Co de Phone Number [facility] [place] [address] * POC, GLUCOSE (06/11/2024 12:50 AM EST) Glucometer, POC 144 65 - 199 mg/dL 06/11/2024 12:51 AM EST [facility] Comment:Supplemental ranges: <140 mg/dL before meals <180 mg/dL all other times of the day. Blood CAPILLARY BLOOD / Unknown 06/11/2024 12:50 AM EST 06/11/2024 12:51 AM EST Melida Valdes MD POINT OF CARE TEST O NIKA Performing Organization Address [facility] Co de Phone Number [facility] [place] [address] * (ABNORMAL) POC, GLUCOSE (06/10/2024 7:22 PM EST) Glucometer, POC 236(H) 65 - 199 mg/dL 06/10/2024 7:22 PM EST [facility] Comment:Supplemental ranges: <140 mg/dL before meals <180 mg/dL all other times of the day. Blood CAPILLARY BLOOD / Unknown 06/10/2024 7:22 PM EST 06/10/2024 7:22 PM EST Melida Valdes MD POINT OF CARE TEST O RDERAPIETER Performing Organization Address City/[facility]/ZIP Co de Phone Number [facility] [place] [address] * (ABNORMAL) Blood Gas, Venous (06/10/2024 5:42 PM EST) [facility] pH, Venous 7.34 7.32 - 7.42 06/10/2024 5:50 PM [facility] PCO2, Venous 52 38 - 58 mmHg 06/10/2024 5:50 PM [facility] PO2, Venous 24 16 - 65 mmHg 06/10/2024 5:50 PM [facility] Bicarbonate, Venous 27.4 22 - 31 mmol/L 06/10/2024 5:50 PM [facility] Base Excess, Venous 1.7(L) 1.9 - 4.5 mmol/L 06/10/2024 5:50 PM [facility] Hemoglobin, Venous 16.8(H) 13.7 - 16.5 g/dL 06/10/2024 5:50 PM [facility] Oxyhemoglobin, Venous 39.0 % 06/10/2024 5:50 PM [facility] Carboxyhemoglobin , Venous 0.3 % 06/10/2024 5:50 PM [facility] Comment: Nonsmokers: 0.5-1.5% COHB ?? Smokers: Variable ??but usually less than 10% ?? Toxic: 20-30% COHB ?? Lethal: Greater than 60% COHB Methemoglobin, Venous 0.5 <=1.5 % 06/10/2024 5:50 PM [facility] Sodium, Venous 137 135 - 145 mmol/L 06/10/2024 5:50 PM [facility] Chloride, Venous 96(L) 98 - 107 mmol/L 06/10/2024 5:50 PM [facility] Potassium, Venous 4.6 3.5 - 5.0 mmol/L 06/10/2024 5:50 PM [facility] Ionized Calcium, Venous 1.23 1.15 - 1.33 mmol/L 06/10/2024 5:50 PM [facility] Glucose, Venous 114 65 - 199 mg/dL 06/10/2024 5:50 PM [facility] Comment:Glucose Concentratio n >=200 mg/dL plus symptoms is consistent with Diabetes Mellitus. Lactate, Venous 1.1 0.5 - 2.2 mmol/L 06/10/2024 5:50 PM EST [facility] Blood Gas Source Venous 06/10/20 5:50 PM EST [facility] Blood VENOUS BLOOD SPECIMEN / Unknown Blood Gas Venous / Unknown 06/10/2024 5:42 PM EST 06/10/2024 5:47 PM EST Melida Valdes MD CHEMISTRY ORDERABLES Performing Organization Address [facility] Co de Phone Number [facility] [place] [address] * POC, GLUCOSE (06/10/2024 5:35 PM EST) Glucometer, POC 123 65 - 199 mg/dL 06/10/2024 5:35 PM EST [facility] Comment:Supplemental ranges: <140 mg/dL before meals <180 mg/dL all other times of the day. Blood CAPILLARY BLOOD / Unknown 06/10/2024 5:35 PM EST 06/10/2024 5:35 PM EST Melida Valdes MD POINT OF CARE TEST O RDERABLES Performing Organization Address [facility] Co de Phone Number [facility] [place] [address] * (ABNORMAL) POC, GLUCOSE (06/10/2024 11:25 AM EST) Glucometer, POC 216(H) 65 - 199 mg/dL 06/10/2024 11:25 AM EST [facility] Comment:Supplemental ranges: <140 mg/dL before meals <180 mg/dL all other times of the day. Blood CAPILLARY BLOOD / Unknown 06/10/2024 11:25 AM EST 06/10/2024 11:25 AM EST Melida Valdes MD POINT OF CARE TEST O RDERABLES Performing Organization Address [facility] Co de Phone Number [facility] [place] [address] * (ABNORMAL) POC, GLUCOSE (06/10/2024 7:46 AM EST) Glucometer, POC 206(H) 65 - 199 mg/dL 06/10/2024 7:46 AM EST [facility] Comment:Supplemental ranges: <140 mg/dL before meals <180 mg/dL all other times of the day. Blood CAPILLARY BLOOD / Unknown 06/10/2024 7:46 AM EST 06/10/2024 7:46 AM EST Melida Valdes MD POINT OF CARE TEST O RDERABLES Performing Organization Address [facility] Co de Phone Number [facility] [place] [address] * POC, GLUCOSE (06/10/2024 4:23 AM EST) Glucometer, POC 154 65 - 199 mg/dL 06/10/2024 4:24 AM EST [facility] Comment:Supplemental ranges: <140 mg/dL before meals <180 mg/dL all other times of the day. Blood CAPILLARY BLOOD / Unknown 06/10/2024 4:23 AM EST 06/10/2024 4:24 AM EST Melida Valdes MD POINT OF CARE TEST O RDERAPIETER Performing Organization Address [facility] Co de Phone Number [facility] [place] [address] * (ABNORMAL) CBC (with Diff) (06/10/2024 1:55 AM EST) White Blood Cell 9.00 4.00 - 9.50 x10(3)/mc L 06/10/2024 2:14 AM EST [facility] Red Blood Cell 5.03 4.58 - 5.54 x10(6)/mc L 06/10/2024 2:14 AM [facility] Hemoglobin 14.9 13.7 - 16.5 g/dL 06/10/2024 2:14 AM [facility] Hematocrit 46.4 40.5 - 48.5 % 06/10/2024 2:14 AM [facility] Mean Cell Volume 92.2 82.9 - 93.1 fL 06/10/2024 2:14 AM [facility] Mean Cell Hemoglobin 29.6 27.5 - 32.1 pg 06/10/2024 2:14 AM [facility] Mean Cell Hemoglobin Concentration 32.1 32.0 - 35.7 g/dL 06/10/2024 2:14 AM [facility] Platelet 191 145 - 357 x10(3)/mc L 06/10/2024 2:14 AM [facility] Mean Platelet Volume 9.7 7.6 - 12.9 fL 06/10/2024 2:14 AM [facility] RDW Standard Deviation 47.4(H) 36.0 - 45.0 fL 06/10/2024 2:14 AM [facility] RDW coefficient of variation 14.1(H) 11.4 - 13.8 % 06/10/2024 2:14 AM [facility] NRBC% auto 0.0 % 06/10/2024 2:14 AM [facility] NRBC Absolute <0.01 <0.01 x10(3)/mc L 06/10/2024 2:14 AM [facility] Neutrophil % 48.7 % 06/10/2024 2:14 AM [facility] Neutrophil Absolute (ANC) - Automated 4.39 1.70 - 6.10 x10(3)/mc L 06/10/2024 2:14 AM [facility] Lymph % 34.9 % 06/10/2024 2:14 AM [facility] Lymph Absolute 3.14 0.90 - 3.20 x10(3)/mc L 06/10/2024 2:14 AM [facility] Monocyte % 11.2 % 06/10/2024 2:14 AM [facility] Monocyte Absolute 1.01(H) 0.30 - 0.90 x10(3)/mc L 06/10/2024 2:14 AM [facility] Eos % 3.6 % 06/10/2024 2:14 AM [facility] Eos Absolute 0.32 0.00 - 0.40 x10(3)/mc L 06/10/2024 2:14 AM [facility] Basophil % 1.0 % 06/10/2024 2:14 AM [facility] Baso Absolute 0.09 0.00 - 0.10 x10(3)/mc L 06/10/2024 2:14 AM [facility] Immature Gran % 0.6 % 2:14 AM [facility] Immature Gran Absolute 0.05(H) 0.00 - 0.04 x10(3)/mc L 06/10/2024 2:14 AM [facility] Blood VENOUS BLOOD SPECIMEN / Unknown Venipuncture / Unknown 06/10/2024 1:55 AM EST 06/10/2024 2:05 AM EST Shahnaz Scanlon MD HEMATOLOGY ORDERABLE S Performing Organization Address City/[facility] Co de Phone Number [facility] [place] [address] * Magnesium (06/10/2024 1:55 AM EST) Magnesium 0.83 0.69 - 1.07 mMol/L 06/10/2024 2:37 AM [facility] Blood VENOUS BLOOD SPECIMEN / Unknown Venipuncture / Unknown 06/10/2024 1:55 AM EST 06/10/2024 2:05 AM EST Shahnaz Scanlon MD CHEMISTRY ORDERABLES [facility] [address] * (ABNORMAL) Basic Metabolic Panel (06/10/2024 1:55 AM EST) Glucose 140 65 - 199 mg/dL 06/10/2024 2:37 AM [facility] Comment:Glucose Concentratio n >=200 mg/dL plus symptoms is consistent with Diabetes Mellitus. Blood Urea Nitrogen 24(H) 10 - 20 mg/dL 06/10/2024 2:37 AM [facility] Creatinine 1.06 0.80 - 1.50 mg/dL 06/10/2024 2:37 AM [facility] Sodium 138 135 - 145 mMol/L 06/10/2024 2:37 AM [facility] Potassium 4.1 3.5 - 5.0 mMol/L 06/10/2024 2:37 AM [facility] Chloride 100 98 - 107 mMol/L 06/10/2024 2:37 AM [facility] Carbon Dioxide 25 22 - 31 mMol/L 06/10/2024 2:37 AM [facility] Anion Gap 13 5 - 15 mMol/L 06/10/2024 2:37 AM [facility] Calcium 9.5 8.5 - 10.5 mg/dL 06/10/2024 2:37 AM [facility] Est Glomerular Filtration Rate - Male 77 mL/min/1. 73 m?? 06/10/2024 2:37 AM [facility] Comment: This patient's estimated GFR [...] Scanlon MD CHEMISTRY ORDERABLES Performing Organization Address [facility] Co de Phone Number [facility] [place] [address] * Heparin (unfractionated) Level (06/10/2024 1:54 AM EST) UF Heparin 0.56 IU/mL 06/10/2024 2:41 AM EST [facility] Comment: Heparin (anti-Xa) levels should be [...] MD HEMATOLOGY ORDERABLE S Performing Organization Address City/[facility]/ZIP Co de Phone Number [facility] [place] [address] * POC, GLUCOSE (06/10/2024 12:05 AM EST) Glucometer, POC 125 65 - 199 mg/dL 06/10/2024 12:05 AM EST [facility] Comment:Supplemental ranges: <140 mg/dL before meals <180 mg/dL all other times of the day. Blood CAPILLARY BLOOD / Unknown 06/10/2024 12:05 AM EST 06/10/2024 12:05 AM EST Melida Valdes MD POINT OF CARE TEST O NIKA [facility] [place] [address] * POC, GLUCOSE (06/09/2024 8:36 PM EST) Glucometer, POC 197 65 - 199 mg/dL 06/09/2024 8:36 PM EST [facility] Comment:Supplemental ranges: <140 mg/dL before meals <180 mg/dL all other times of the day. Blood CAPILLARY BLOOD / Unknown 06/09/2024 8:36 PM EST 06/09/2024 8:36 PM EST Melida Valdes MD POINT OF CARE TEST O NIKA Performing Organization Address City/[facility]/ZIP Co de Phone Number [facility] [place] [address] * POC, GLUCOSE (06/09/2024 5:27 PM EST) Glucometer, POC 174 65 - 199 mg/dL 06/09/2024 5:28 PM EST [facility] Comment:Supplemental ranges: <140 mg/dL before meals <180 mg/dL all other times of the day. Blood CAPILLARY BLOOD / Unknown 06/09/2024 5:27 PM EST 06/09/2024 5:28 PM EST Melida Valdes MD POINT OF CARE TEST O NIKA [facility] [place] [address] * (ABNORMAL) POC, GLUCOSE (06/09/2024 11:52 AM EST) Glucometer, POC 211(H) 65 - 199 mg/dL 06/09/2024 11:52 AM EST [facility] Comment:Supplemental ranges: <140 mg/dL before meals <180 mg/dL all other times of the day. Blood CAPILLARY BLOOD / Unknown 06/09/2024 11:52 AM EST 06/09/2024 11:52 AM EST Melida Valdes MD POINT OF CARE TEST O RDERAPIETER Performing Organization Address City/[facility]/ZIP Co de Phone Number [facility] [place] [address] * Potassium (06/09/2024 8:25 AM EST) Potassium 4.6 3.5 - 5.0 mMol/L 06/09/2024 10:09 AM EST [facility] Blood VENOUS BLOOD SPECIMEN / Unknown Venipuncture / Unknown 06/09/2024 8:25 AM EST 06/09/2024 8:42 AM EST Shahnaz Scanlon MD CHEMISTRY ORDERABLES Performing Organization Address [facility] Co de Phone Number [facility] [place] [address] * (ABNORMAL) POC, GLUCOSE (06/09/2024 8:10 AM EST) Glucometer, POC 209(H) 65 - 199 mg/dL 06/09/2024 8:10 AM EST [facility] Comment:Supplemental ranges: <140 mg/dL before meals <180 mg/dL all other times of the day. Blood CAPILLARY BLOOD / Unknown 06/09/2024 8:10 AM EST 06/09/2024 8:11 AM EST Melida Valdes MD POINT OF CARE TEST O RDERABLES Performing Organization Address City/[facility]/ZIP Co de Phone Number [facility] [place] [address] * POC, GLUCOSE (06/09/2024 4:40 AM EST) Glucometer, POC 131 65 - 199 mg/dL 06/09/2024 4:40 AM EST [facility] Comment:Supplemental ranges: <140 mg/dL before meals <180 mg/dL all other times of the day. Blood CAPILLARY BLOOD / Unknown 06/09/2024 4:40 AM EST 06/09/2024 4:41 AM EST Melida Valdes MD POINT OF CARE TEST O RDERABLES Performing Organization Address [facility]/ZIP Co de Phone Number [facility] [place] [address] * Heparin (unfractionated) Level (06/09/2024 2:12 AM EST) UF Heparin 0.55 IU/mL 06/09/2024 2:33 AM EST [facility] Comment: Heparin (anti-Xa) levels should be [...] EST Shahnaz Scanlon MD HEMATOLOGY ORDERABLE S [facility] [place] [address] * (ABNORMAL) CBC (with Diff) (06/09/2024 2:12 AM EST) White Blood Cell 9.80(H) 4.00 - 9.50 x10(3)/mc L 06/09/2024 2:44 AM [facility] Red Blood Cell 5.18 4.58 - 5.54 x10(6)/mc L 06/09/2024 2:44 AM [facility] Hemoglobin 15.5 13.7 - 16.5 g/dL 06/09/2024 2:44 AM [facility] Hematocrit 47.4 40.5 - 48.5 % 06/09/2024 2:44 AM [facility] Mean Cell Volume 91.5 82.9 - 93.1 fL 06/09/2024 2:44 AM [facility] Mean Cell Hemoglobin 29.9 27.5 - 32.1 pg 06/09/2024 2:44 AM [facility] Mean Cell Hemoglobin Concentration 32.7 32.0 - 35.7 g/dL 06/09/2024 2:44 AM [facility] Platelet 205 145 - 357 x10(3)/mc L 06/09/2024 2:44 AM [facility] Mean Platelet Volume 9.7 7.6 - 12.9 fL 06/09/2024 2:44 AM [facility] RDW Standard Deviation 47.7(H) 36.0 - 45.0 fL 06/09/2024 2:44 AM [facility] RDW coefficient of variation 14.1(H) 11.4 - 13.8 % 06/09/2024 2:44 AM [facility] NRBC% auto 0.0 % 06/09/2024 2:44 AM [facility] NRBC Absolute <0.01 <0.01 x10(3)/mc L 06/09/2024 2:44 AM [facility] Neutrophil % 53.0 % 06/09/2024 2:44 AM [facility] Neutrophil Absolute (ANC) - Automated 5.19 1.70 - 6.10 x10(3)/mc L 06/09/2024 2:44 AM [facility] Lymph % 31.6 % 06/09/2024 2:44 AM [facility] Lymph Absolute 3.10 0.90 - 3.20 x10(3)/mc L 06/09/2024 2:44 AM [facility] Monocyte % 11.0 % 06/09/2024 2:44 AM [facility] Monocyte Absolute 1.08(H) 0.30 - 0.90 x10(3)/mc L 06/09/2024 2:44 AM [facility] Eos % 2.9 % 06/09/2024 2:44 AM [facility] Eos Absolute 0.28 0.00 - 0.40 x10(3)/mc L 06/09/2024 2:44 AM [facility] Basophil % 0.9 % 06/09/2024 2:44 AM [facility] Baso Absolute 0.09 0.00 - 0.10 x10(3)/mc L 06/09/2024 2:44 AM [facility] Immature Gran % 0.6 % 2:44 AM [facility] Immature Gran Absolute 0.06(H) 0.00 - 0.04 x10(3)/mc L 06/09/2024 2:44 AM [facility] Blood VENOUS BLOOD SPECIMEN / Unknown Venipuncture / Unknown 06/09/2024 2:12 AM EST 06/09/2024 2:21 AM EST Shahnaz Scanlon MD HEMATOLOGY ORDERABLE S [facility] [place] [address] * Magnesium (06/09/2024 2:12 AM EST) Magnesium 0.83 0.69 - 1.07 mMol/L 06/09/2024 2:52 AM EST [facility] Blood VENOUS BLOOD SPECIMEN / Unknown Venipuncture / Unknown 06/09/2024 2:12 AM EST 06/09/2024 2:22 AM EST Shahnaz Scanlon MD CHEMISTRY ORDERABLES [facility] [place] [address] * (ABNORMAL) Basic Metabolic Panel (06/09/2024 2:12 AM EST) Glucose 147 65 - 199 mg/dL 06/09/2024 2:52 AM [facility] Comment:Glucose Concentratio n >=200 mg/dL plus symptoms is consistent with Diabetes Mellitus. Blood Urea Nitrogen 24(H) 10 - 20 mg/dL 06/09/2024 2:52 AM [facility] Creatinine 1.11 0.80 - 1.50 mg/dL 06/09/2024 2:52 AM [facility] Sodium 136 135 - 145 mMol/L 06/09/2024 2:52 AM [facility] Potassium 3.9 3.5 - 5.0 mMol/L 06/09/2024 2:52 AM [facility] Chloride 98 98 - 107 mMol/L 06/09/2024 2:52 AM [facility] Carbon Dioxide 27 22 - 31 mMol/L 06/09/2024 2:52 AM [facility] Anion Gap 11 5 - 15 mMol/L 06/09/2024 2:52 AM [facility] Calcium 9.7 8.5 - 10.5 mg/dL 06/09/2024 2:52 AM [facility] Est Glomerular Filtration Rate - Male 73 mL/min/1. 73 m?? 06/09/2024 2:52 AM [facility] Comment: This patient's estimated GFR [...] AM EST 06/09/2024 2:22 AM EST Shahnaz Scnalon MD CHEMISTRY ORDERABLES Performing Organization Address [facility] Co de Phone Number [facility] [place] [address] * POC, GLUCOSE (06/09/2024 12:34 AM EST) Glucometer, POC 186 65 - 199 mg/dL 06/09/2024 12:34 AM EST [facility] Comment:Supplemental ranges: <140 mg/dL before meals <180 mg/dL all other times of the day. Blood CAPILLARY BLOOD / Unknown 06/09/2024 12:34 AM EST 06/09/2024 12:34 AM EST Melida Valdes MD POINT OF CARE TEST O RDERABLES Performing Organization Address City/[facility]/ZIP Co de Phone Number [facility] [place] [address] * POC, GLUCOSE (06/08/2024 8:27 PM EST) Glucometer, POC 176 65 - 199 mg/dL 06/08/2024 8:28 PM EST [facility] Comment:Supplemental ranges: <140 mg/dL before meals <180 mg/dL all other times of the day. Blood CAPILLARY BLOOD / Unknown 06/08/2024 8:27 PM EST 06/08/2024 8:28 PM EST Melida Valdes MD POINT OF CARE TEST O NIKA Performing Organization Address [facility] de Phone Number [facility] [place] [address] * POC, GLUCOSE (06/08/2024 4:16 PM EST) Glucometer, POC 159 65 - 199 mg/dL 06/08/2024 4:16 PM EST [facility] Comment:Supplemental ranges: <140 mg/dL before meals <180 mg/dL all other times of the day. Blood CAPILLARY BLOOD / Unknown 06/08/2024 4:16 PM EST 06/08/2024 4:16 PM EST Melida Valdes MD POINT OF CARE TEST O NIKA Performing Organization Address [facility] Phone Number [facility] [place] [address] * (ABNORMAL) POC, GLUCOSE (06/08/2024 12:35 PM EST) Glucometer, POC 226(H) 65 - 199 mg/dL 06/08/2024 12:35 PM EST [facility] Comment:Supplemental ranges: <140 mg/dL before meals <180 mg/dL all other times of the day. Blood CAPILLARY BLOOD / Unknown 06/08/2024 12:35 PM EST 06/08/2024 12:35 PM EST Melida Valdes MD POINT OF CARE TEST O NIKA Performing Organization Address [facility] Co de Phone Number [facility] [place] [address] * POC, GLUCOSE (06/08/2024 8:10 AM EST) Glucometer, POC 190 65 - 199 mg/dL 06/08/2024 8:14 AM EST [facility] Comment:Supplemental ranges: <140 mg/dL before meals <180 mg/dL all other times of the day. Blood CAPILLARY BLOOD / Unknown 06/08/2024 8:10 AM EST 06/08/2024 8:14 AM EST Melida Valdes MD POINT OF CARE TEST O NIKA Performing Organization Address [facility] de Phone Number [facility] [place] [address] * POC, GLUCOSE (06/08/2024 4:09 AM EST) Glucometer, POC 151 65 - 199 mg/dL 06/08/2024 4:10 AM EST [facility] Comment:Supplemental ranges: <140 mg/dL before meals <180 mg/dL all other times of the day. Blood CAPILLARY BLOOD / Unknown 06/08/2024 4:09 AM EST 06/08/2024 4:10 AM EST Melida Valdes MD POINT OF CARE TEST O NIKA Performing Organization Address [facility] de Phone Number [facility] [place] [address] * Heparin (unfractionated) Level (06/08/2024 3:21 AM EST) UF Heparin 0.46 IU/mL 06/08/2024 3:41 AM EST [facility] Comment: Heparin (anti-Xa) levels should be [...] EST Shahnaz Scanlon MD HEMATOLOGY ORDERABLE S [facility] [place] [address] * (ABNORMAL) CBC (with Diff) (06/08/2024 3:21 AM EST) White Blood Cell 9.92(H) 4.00 - 9.50 x10(3)/mc L 06/08/2024 3:34 AM [facility] Red Blood Cell 5.09 4.58 - 5.54 x10(6)/mc L 06/08/2024 3:34 AM [facility] Hemoglobin 15.1 13.7 - 16.5 g/dL 06/08/2024 3:34 AM [facility] Hematocrit 46.7 40.5 - 48.5 % 06/08/2024 3:34 AM [facility] Mean Cell Volume 91.7 82.9 - 93.1 fL 06/08/2024 3:34 AM [facility] Mean Cell Hemoglobin 29.7 27.5 - 32.1 pg 06/08/2024 3:34 AM [facility] Mean Cell Hemoglobin Concentration 32.3 32.0 - 35.7 g/dL 06/08/2024 3:34 AM [facility] Platelet 203 145 - 357 x10(3)/mc L 06/08/2024 3:34 AM [facility] Mean Platelet Volume 9.4 7.6 - 12.9 fL 06/08/2024 3:34 AM [facility] RDW Standard Deviation 46.9(H) 36.0 - 45.0 fL 06/08/2024 3:34 AM [facility] RDW coefficient of variation 13.8 11.4 - 13.8 % 06/08/2024 3:34 AM [facility] NRBC% auto 0.0 % 06/08/2024 3:34 AM [facility] NRBC Absolute <0.01 <0.01 x10(3)/mc L 06/08/2024 3:34 AM [facility] Neutrophil % 56.8 % 06/08/2024 3:34 AM [facility] Neutrophil Absolute (ANC) - Automated 5.63 1.70 - 6.10 x10(3)/mc L 06/08/2024 3:34 AM [facility] Lymph % 27.3 % 06/08/2024 3:34 AM [facility] Lymph Absolute 2.71 0.90 - 3.20 x10(3)/mc L 06/08/2024 3:34 AM [facility] Monocyte % 11.2 % 06/08/2024 3:34 AM [facility] Monocyte Absolute 1.11(H) 0.30 - 0.90 x10(3)/mc L 06/08/2024 3:34 AM [facility] Eos % 3.4 % 06/08/2024 3:34 AM [facility] Eos Absolute 0.34 0.00 - 0.40 x10(3)/mc L 06/08/2024 3:34 AM [facility] Basophil % 0.8 % 06/08/2024 3:34 AM [facility] Baso Absolute 0.08 0.00 - 0.10 x10(3)/mc L 06/08/2024 3:34 AM [facility] Immature Gran % 0.5 % 3:34 AM [facility] Immature Gran Absolute 0.05(H) 0.00 - 0.04 x10(3)/mc L 06/08/2024 3:34 AM EST [facility] Blood VENOUS BLOOD SPECIMEN / Unknown Venipuncture / Unknown 06/08/2024 3:21 AM EST 06/08/2024 3:27 AM EST Shahnaz Scanlon MD HEMATOLOGY ORDERABLE S Performing Organization Address City/[facility]/ZIP Co de Phone Number [facility] [place] [address] * Magnesium (06/08/2024 3:21 AM EST) Magnesium 0.84 0.69 - 1.07 mMol/L 06/08/2024 3:59 AM [facility] Blood VENOUS BLOOD SPECIMEN / Unknown Venipuncture / Unknown 06/08/2024 3:21 AM EST 06/08/2024 3:27 AM EST Shahnaz Scanlon MD CHEMISTRY ORDERABLES Performing Organization Address City/[facility]/ZIP Co de Phone Number [facility] [place] [address] * (ABNORMAL) Basic Metabolic Panel (06/08/2024 3:21 AM EST) Glucose 173 65 - 199 mg/dL 06/08/2024 3:59 AM [facility] Comment:Glucose Concentratio n >=200 mg/dL plus symptoms is consistent with Diabetes Mellitus. Blood Urea Nitrogen 25(H) 10 - 20 mg/dL 06/08/2024 3:59 AM [facility] Creatinine 1.09 0.80 - 1.50 mg/dL 06/08/2024 3:59 AM [facility] Sodium 135 135 - 145 mMol/L 06/08/2024 3:59 AM [facility] Potassium 4.2 3.5 - 5.0 mMol/L 06/08/2024 3:59 AM [facility] Chloride 98 98 - 107 mMol/L 06/08/2024 3:59 AM [facility] Carbon Dioxide 25 22 - 31 mMol/L 06/08/2024 3:59 AM EST [facility] Anion Gap 12 5 - 15 mMol/L 06/08/2024 3:59 AM [facility] Calcium 9.4 8.5 - 10.5 mg/dL 06/08/2024 3:59 AM EST [facility] Est Glomerular Filtration Rate - Male 74 mL/min/1. 73 m?? 06/08/2024 3:59 AM [facility] Comment: This patient's estimated GFR [...] AM EST Shahnaz Scanlon MD CHEMISTRY ORDERABLES [facility] [place] [address] * POC, GLUCOSE (06/07/2024 11:57 PM EST) [facility] Signature Glucometer, POC 188 65 - 199 mg/dL 06/07/2024 11:57 PM EST [facility] Comment:Supplemental ranges: <140 mg/dL before meals <180 mg/dL all other times of the day. Blood CAPILLARY BLOOD / Unknown 06/07/2024 11:57 PM EST 06/07/2024 11:58 PM EST Melida Valdes MD POINT OF CARE TEST O RDERABLES [facility] [place] [address] * POC, GLUCOSE (06/07/2024 8:05 PM EST) Glucometer, POC 118 65 - 199 mg/dL 06/07/2024 8:06 PM EST [facility] Comment:Supplemental ranges: <140 mg/dL before meals <180 mg/dL all other times of the day. Blood CAPILLARY BLOOD / Unknown 06/07/2024 8:05 PM EST 06/07/2024 8:06 PM EST Melida Valdes MD POINT OF CARE TEST O RDBECKIE Performing Organization Address [facility] Co de Phone Number [facility] [place] [address] * Potassium (06/07/2024 5:22 PM EST) Potassium 4.6 3.5 - 5.0 mMol/L 06/07/2024 5:59 PM EST [facility] Blood VENOUS BLOOD SPECIMEN / Unknown Venipuncture / Unknown 06/07/2024 5:22 PM EST 06/07/2024 5:26 PM EST Shahnaz Scanlon MD CHEMISTRY ORDERABLES Performing Organization Address City/[facility] Co de Phone Number [facility] [place] [address] * POC, GLUCOSE (06/07/2024 4:31 PM EST) Glucometer, POC 174 65 - 199 mg/dL 06/07/2024 4:34 PM EST [facility] Comment:Supplemental ranges: <140 mg/dL before meals <180 mg/dL all other times of the day. Blood CAPILLARY BLOOD / Unknown 06/07/2024 4:31 PM EST 06/07/2024 4:34 PM EST Melida Valdes MD POINT OF CARE TEST O RDERABLES [facility] [place] [address] * MRI Cardiac Morphology Function wwo Contrast (06/07/2024 1:10 PM EST) WORKSTATION ID [id number] [facility] Anatomical Region Laterality Modality Magnetic Resonan ce [...] - Mildly dilated left ventricle size with csllcebc-qt-hrajlhfj decreased LV systolic function. ??LV ejection fraction [...] who have questions please contact the health client care manager that requested your imaging first. ? Electronically signed by: Kriss Alonzo MD, [facility] ([phone]), at 06/07/2024 2:41 PM Narrative 06/07/2024 2:41 [...] VENTRICLE: Mildly dilated left ventricle size with scutbcqh-nu-gkripbhd decreased LV systolic function. ??LV ejection fraction [...] VENTRICLE: Mildly dilated left ventricle size with jjlfyelt-mo-evilziuo decreasedLV systolic function. LV ejection fraction is [...] - Mildly dilated left ventricle size with qfqiqroh-tf-dxntuknd decreasedLV systolic function. LV ejection fraction is [...] patients who have questions please contactthe health client care manager that requested your imaging first. Electronically signed by: Kriss Alonzo MD, [facility]([phone]), at 06/07/2024 2:41 PM Delroy Fofana MD [facility] MRI ORDERABLES * (ABNORMAL) POC, GLUCOSE (06/07/2024 11:05 AM EST) [facility] Signature Glucometer, POC 221(H) 65 - 199 mg/dL 06/07/2024 11:06 AM EST [facility] Comment:Supplemental ranges: <140 mg/dL before meals <180 mg/dL all other times of the day. Blood CAPILLARY BLOOD / Unknown 06/07/2024 11:05 AM EST 06/07/2024 11:06 AM EST Melida Valdes MD POINT OF CARE TEST O RDERAPIETER Performing Organization Address City/[facility] Co de Phone Number [facility] [place] [address] * (ABNORMAL) POC, GLUCOSE (06/07/2024 11:03 AM EST) Glucometer, POC 250(H) 65 - 199 mg/dL 06/07/2024 11:04 AM EST [facility] Comment:Supplemental ranges: <140 mg/dL before meals <180 mg/dL all other times of the day. Blood CAPILLARY BLOOD / Unknown 06/07/2024 11:03 AM EST 06/07/2024 11:04 AM EST Melida Valdes MD POINT OF CARE TEST O RALPHERAPIETER Performing Organization Address [facility] Co de Phone Number [facility] [place] [address] * Potassium (06/07/2024 9:44 AM EST) Potassium 4.7 3.5 - 5.0 mMol/L 06/07/2024 10:23 AM EST [facility] Blood VENOUS BLOOD SPECIMEN / Unknown Venipuncture / Unknown 06/07/2024 9:44 AM EST 06/07/2024 9:57 AM EST Shahnaz Scanlon MD CHEMISTRY ORDERABLES Performing Organization Address City/[facility]/ZIP Co de Phone Number [facility] [place] [address] * POC, GLUCOSE (06/07/2024 7:45 AM EST) Glucometer, POC 175 65 - 199 mg/dL 06/07/2024 7:45 AM EST [facility] Comment:Supplemental ranges: <140 mg/dL before meals <180 mg/dL all other times of the day. Blood CAPILLARY BLOOD / Unknown 06/07/2024 7:45 AM EST 06/07/2024 7:46 AM EST Melida Valdes MD POINT OF CARE TEST O RDERABLES [facility] [place] [address] * XR Chest PA & Lateral (Generic) (06/07/2024 7:03 AM EST) WORKSTATION ID [id number] RAD Anatomical Region Laterality Modality Chest N/A [...] who have questions please contact the health client care manager that requested your imaging first. ? Narrative 06/07/2024 10:45 AM EST EXAMINATION: XR [...] patients who have questions please contactthe health client care manager that requested your imaging first. Electronically signed by: Stuart Aponte MD, [facility]([phone]), at 06/07/2024 10:45 AM Shahnaz Scanlon MD IMG DX ORDERABLES * POC, GLUCOSE (06/07/2024 4:25 AM EST) [facility] Glucometer, POC 127 65 - 199 mg/dL 06/07/2024 4:26 AM EST [facility] Comment:Supplemental ranges: <140 mg/dL before meals <180 mg/dL all other times of the day. Blood CAPILLARY BLOOD / Unknown 06/07/2024 4:25 AM EST 06/07/2024 4:26 AM EST Melida Valdes MD POINT OF CARE TEST O RDERABLES [facility] [place] [address] * Heparin (unfractionated) Level (06/07/2024 2:41 AM EST) UF Heparin 0.45 IU/mL 06/07/2024 3:03 AM EST [facility] Comment: Heparin (anti-Xa) levels should be [...] MD HEMATOLOGY ORDERABLE S Performing Organization Address City/State/[facility] Co de Phone Number [facility] [place] [address] * (ABNORMAL) CBC (with Diff) (06/07/2024 2:41 AM EST) White Blood Cell 10.06(H) 4.00 - 9.50 x10(3)/mc L 06/07/2024 2:58 AM EST [facility] Red Blood Cell 5.02 4.58 - 5.54 x10(6)/mc L 06/07/2024 2:58 AM EST [facility] Hemoglobin 14.8 13.7 - 16.5 g/dL 06/07/2024 2:58 AM EST [facility] Hematocrit 46.2 40.5 - 48.5 % 06/07/2024 2:58 AM [facility] Mean Cell Volume 92.0 82.9 - 93.1 fL 06/07/2024 2:58 AM EST [facility] Mean Cell Hemoglobin 29.5 27.5 - 32.1 pg 06/07/2024 2:58 AM [facility] Mean Cell Hemoglobin Concentration 32.0 32.0 - 35.7 g/dL 06/07/2024 2:58 AM [facility] Platelet 202 145 - 357 x10(3)/mc L 06/07/2024 2:58 AM [facility] Mean Platelet Volume 9.6 7.6 - 12.9 fL 06/07/2024 2:58 AM [facility] RDW Standard Deviation 46.3(H) 36.0 - 45.0 fL 06/07/2024 2:58 AM [facility] RDW coefficient of variation 13.8 11.4 - 13.8 % 06/07/2024 2:58 AM [facility] NRBC% auto 0.0 % 06/07/2024 2:58 AM [facility] NRBC Absolute <0.01 <0.01 x10(3)/mc L 06/07/2024 2:58 AM [facility] Neutrophil % 55.9 % 06/07/2024 2:58 AM [facility] Neutrophil Absolute (ANC) - Automated 5.62 1.70 - 6.10 x10(3)/mc L 06/07/2024 2:58 AM [facility] Lymph % 28.3 % 06/07/2024 2:58 AM [facility] Lymph Absolute 2.85 0.90 - 3.20 x10(3)/mc L 06/07/2024 2:58 AM [facility] Monocyte % 10.8 % 06/07/2024 2:58 AM [facility] Monocyte Absolute 1.09(H) 0.30 - 0.90 x10(3)/mc L 06/07/2024 2:58 AM [facility] Eos % 3.6 % 06/07/2024 2:58 AM [facility] Eos Absolute 0.36 0.00 - 0.40 x10(3)/mc L 06/07/2024 2:58 AM EST [facility] Basophil % 0.8 % 06/07/2024 2:58 AM EST [facility] Baso Absolute 0.08 0.00 - 0.10 x10(3)/mc L 06/07/2024 2:58 AM EST [facility] Immature Gran % 0.6 % 2:58 AM EST [facility] Immature Gran Absolute 0.06(H) 0.00 - 0.04 x10(3)/mc L 06/07/2024 2:58 AM EST [facility] Blood VENOUS BLOOD SPECIMEN / Unknown Venipuncture / Unknown 06/07/2024 2:41 AM EST 06/07/2024 2:52 AM EST Shahnaz Scanlon MD HEMATOLOGY ORDERABLE S Performing Organization Address City/[facility]/ZIP Co de Phone Number [facility] [place] [address] * Magnesium (06/07/2024 2:41 AM EST) Magnesium 0.92 0.69 - 1.07 mMol/L 06/07/2024 3:25 AM [facility] Blood VENOUS BLOOD SPECIMEN / Unknown Venipuncture / Unknown 06/07/2024 2:41 AM EST 06/07/2024 2:51 AM EST Shahnaz Scnalon MD CHEMISTRY ORDERABLES [facility] [address] * (ABNORMAL) Basic Metabolic Panel (06/07/2024 2:41 AM EST) Glucose 140 65 - 199 mg/dL 06/07/2024 3:25 AM [facility] Comment:Glucose Concentratio n >=200 mg/dL plus symptoms is consistent with Diabetes Mellitus. Blood Urea Nitrogen 26(H) 10 - 20 mg/dL 06/07/2024 3:25 AM [facility] Creatinine 1.06 0.80 - 1.50 mg/dL 06/07/2024 3:25 AM EST [facility] Sodium 136 135 - 145 mMol/L 06/07/2024 3:25 AM [facility] Potassium 3.8 3.5 - 5.0 mMol/L 06/07/2024 3:25 AM [facility] Chloride 98 98 - 107 mMol/L 06/07/2024 3:25 AM [facility] Carbon Dioxide 28 22 - 31 mMol/L 06/07/2024 3:25 AM [facility] Anion Gap 10 5 - 15 mMol/L 06/07/2024 3:25 AM [facility] Calcium 9.4 8.5 - 10.5 mg/dL 06/07/2024 3:25 AM [facility] Est Glomerular Filtration Rate - Male 77 mL/min/1. 73 m?? 06/07/2024 3:25 AM [facility] Comment: This patient's estimated GFR [...] AM EST Shahnaz Scanlon MD CHEMISTRY ORDERABLES [facility] [address] * POC, GLUCOSE (06/07/2024 12:08 AM EST) Glucometer, POC 182 65 - 199 mg/dL 06/07/2024 12:09 AM EST [facility] Comment:Supplemental ranges: <140 mg/dL before meals <180 mg/dL all other times of the day. Blood CAPILLARY BLOOD / Unknown 06/07/2024 12:08 AM EST 06/07/2024 12:09 AM EST Melida Valdes MD POINT OF CARE TEST O NIKA [facility] [place] [address] * POC, GLUCOSE (06/06/2024 8:18 PM EST) Glucometer, POC 143 65 - 199 mg/dL 06/06/2024 8:19 PM EST [facility] Comment:Supplemental ranges: <140 mg/dL before meals <180 mg/dL all other times of the day. Blood CAPILLARY BLOOD / Unknown 06/06/2024 8:18 PM EST 06/06/2024 8:19 PM EST Melida Valdes MD POINT OF CARE TEST O NIKA Performing Organization Address City/[facility]/ZIP Co de Phone Number [facility] [place] [address] * POC, GLUCOSE (06/06/2024 3:39 PM EST) Glucometer, POC 147 65 - 199 mg/dL 06/06/2024 3:40 PM EST [facility] Comment:Supplemental ranges: <140 mg/dL before meals <180 mg/dL all other times of the day. Blood CAPILLARY BLOOD / Unknown 06/06/2024 3:39 PM EST 06/06/2024 3:40 PM EST Melida Valdes MD POINT OF CARE TEST O NIKA [facility] [place] [address] * Potassium (06/06/2024 2:37 PM EST) Potassium 4.3 3.5 - 5.0 mMol/L 06/06/2024 3:01 PM EST [facility] Blood VENOUS BLOOD SPECIMEN / Unknown Venipuncture / Unknown 06/06/2024 2:37 PM EST 06/06/2024 2:42 PM EST Shahnaz Scanlon MD CHEMISTRY ORDERABLES Performing Organization Address [facility]/ZIP Co de Phone Number [facility] [place] [address] * (ABNORMAL) POC, GLUCOSE (06/06/2024 1:39 PM EST) Glucometer, POC 317(H) 65 - 199 mg/dL 06/06/2024 1:40 PM EST [facility] Comment:Supplemental ranges: <140 mg/dL before meals <180 mg/dL all other times of the day. Blood CAPILLARY BLOOD / Unknown 06/06/2024 1:39 PM EST 06/06/2024 1:41 PM EST Melida Valdes MD POINT OF CARE TEST O NIKA Performing Organization Address [facility]/ZIP Co de Phone Number [facility] [place] [address] * (ABNORMAL) POC, GLUCOSE (06/06/2024 11:34 AM EST) Glucometer, POC 264(H) 65 - 199 mg/dL 06/06/2024 11:35 AM EST [facility] Comment:Supplemental ranges: <140 mg/dL before meals <180 mg/dL all other times of the day. Blood CAPILLARY BLOOD / Unknown 06/06/2024 11:34 AM EST 06/06/2024 11:35 AM EST Melida Valdes MD POINT OF CARE TEST O RDERABLES Performing Organization Address City/[facility]/ZIP Co de Phone Number [facility] [place] [address] * Potassium (06/06/2024 10:17 AM EST) Potassium 4.3 3.5 - 5.0 mMol/L 06/06/2024 10:46 AM EST [facility] Blood VENOUS BLOOD SPECIMEN / Unknown Venipuncture / Unknown 06/06/2024 10:17 AM EST 06/06/2024 10:22 AM EST Shahnaz Scanlon MD CHEMISTRY ORDERABLES Performing Organization Address [facility] Co de Phone Number [facility] [place] [address] * POC, GLUCOSE (06/06/2024 7:57 AM EST) Glucometer, POC 195 65 - 199 mg/dL 06/06/2024 8:03 AM EST [facility] Comment:Supplemental ranges: <140 mg/dL before meals <180 mg/dL all other times of the day. Blood CAPILLARY BLOOD / Unknown 06/06/2024 7:57 AM EST 06/06/2024 8:03 AM EST Melida Valdes MD POINT OF CARE TEST O RDERABLES Performing Organization Address [facility]/ZIP Co de Phone Number [facility] [place] [place] [address] * POC, GLUCOSE (06/06/2024 6:53 AM EST) Glucometer, POC 187 65 - 199 mg/dL 06/06/2024 6:53 AM EST [facility] Comment:Supplemental ranges: <140 mg/dL before meals <180 mg/dL all other times of the day. Blood CAPILLARY BLOOD / Unknown 06/06/2024 6:53 AM EST 06/06/2024 6:54 AM EST Melida Valdes MD POINT OF CARE TEST O RDERABLES Performing Organization Address City/[facility]/ZIP Co de Phone Number [facility] [place] [address] * (ABNORMAL) Hemoglobin A1c (06/06/2024 3:33 AM EST) Hemoglobin A1c 7.1(H) 4.3 - 5.6 % 06/06/2024 1:01 PM EST [facility] Comment: Per ADA guidelines, without clear [...] red blood cell turnover may not be procurement representative of glycemic control. Reference Interval: 4.3 - 5.6% 5.7 - 6.4%: Consistent with prediabetes >=6.5%: Consistent with diagnosis of diabetes mellitus Estimated Average Glucose 157 mg/dL 06/06/2024 1:01 PM EST [facility] Blood VENOUS BLOOD SPECIMEN / Unknown Venipuncture / Unknown 06/06/2024 3:33 AM EST 06/06/2024 3:48 AM EST Alejandra Baumann APRN CHEMISTRY ORDERAB LES Performing Organization Address City/[facility]/ZIP Co de Phone Number [facility] [place] [address] * Heparin (unfractionated) Level (06/06/2024 3:33 AM EST) UF Heparin 0.36 IU/mL 06/06/2024 3:59 AM EST [facility] Comment: Heparin (anti-Xa) levels should be [...] EST Shahnaz Scanlon MD HEMATOLOGY ORDERABLE S [facility] [place] [address] * (ABNORMAL) CBC (with Diff) (06/06/2024 3:33 AM EST) White Blood Cell 9.81(H) 4.00 - 9.50 x10(3)/mc L 06/06/2024 3:54 AM EST [facility] Red Blood Cell 4.91 4.58 - 5.54 x10(6)/mc L 06/06/2024 3:54 AM EST [facility] Hemoglobin 14.6 13.7 - 16.5 g/dL 06/06/2024 3:54 AM EST [facility] Hematocrit 45.4 40.5 - 48.5 % 06/06/2024 3:54 AM EST [facility] Mean Cell Volume 92.5 82.9 - 93.1 fL 06/06/2024 3:54 AM [facility] Mean Cell Hemoglobin 29.7 27.5 - 32.1 pg 06/06/2024 3:54 AM [facility] Mean Cell Hemoglobin Concentration 32.2 32.0 - 35.7 g/dL 06/06/2024 3:54 AM EST [facility] Platelet 199 145 - 357 x10(3)/mc L 06/06/2024 3:54 AM [facility] Mean Platelet Volume 9.5 7.6 - 12.9 fL 06/06/2024 3:54 AM [facility] RDW Standard Deviation 47.2(H) 36.0 - 45.0 fL 06/06/2024 3:54 AM [facility] RDW coefficient of variation 13.9(H) 11.4 - 13.8 % 06/06/2024 3:54 AM [facility] NRBC% auto 0.0 % 06/06/2024 3:54 AM [facility] NRBC Absolute <0.01 <0.01 x10(3)/mc L 06/06/2024 3:54 AM [facility] Neutrophil % 56.8 % 06/06/2024 3:54 AM [facility] Neutrophil Absolute (ANC) - Automated 5.57 1.70 - 6.10 x10(3)/mc L 06/06/2024 3:54 AM [facility] Lymph % 27.6 % 06/06/2024 3:54 AM [facility] Lymph Absolute 2.71 0.90 - 3.20 x10(3)/mc L 06/06/2024 3:54 AM [facility] Monocyte % 11.1 % 06/06/2024 3:54 AM [facility] Monocyte Absolute 1.09(H) 0.30 - 0.90 x10(3)/mc L 06/06/2024 3:54 AM [facility] Eos % 3.0 % 06/06/2024 3:54 AM [facility] Eos Absolute 0.29 0.00 - 0.40 x10(3)/mc L 06/06/2024 3:54 AM [facility] Basophil % 0.9 % 06/06/2024 3:54 AM [facility] Baso Absolute 0.09 0.00 - 0.10 x10(3)/mc L 06/06/2024 3:54 AM EST [facility] Immature Gran % 0.6 % 3:54 AM [facility] Immature Gran Absolute 0.06(H) 0.00 - 0.04 x10(3)/mc L 06/06/2024 3:54 AM [facility] Blood VENOUS BLOOD SPECIMEN / Unknown Venipuncture / Unknown 06/06/2024 3:33 AM EST 06/06/2024 3:48 AM EST Shahnaz Scanlon MD HEMATOLOGY ORDERABLE S Performing Organization Address City/[facility]/ZIP Co de Phone Number [facility] [place] [address] * Magnesium (06/06/2024 3:33 AM EST) Magnesium 0.92 0.69 - 1.07 mMol/L 06/06/2024 4:17 AM [facility] Blood VENOUS BLOOD SPECIMEN / Unknown Venipuncture / Unknown 06/06/2024 3:33 AM EST 06/06/2024 3:47 AM EST Shahnaz Scanlon MD CHEMISTRY ORDERABLES Performing Organization Address City/[facility]/ZIP Co de Phone Number [facility] [place] [address] * (ABNORMAL) Basic Metabolic Panel (06/06/2024 3:33 AM EST) Glucose 190 65 - 199 mg/dL 06/06/2024 4:17 AM [facility] Comment:Glucose Concentratio n >=200 mg/dL plus symptoms is consistent with Diabetes Mellitus. Blood Urea Nitrogen 27(H) 10 - 20 mg/dL 06/06/2024 4:17 AM [facility] Creatinine 1.12 0.80 - 1.50 mg/dL 06/06/2024 4:17 AM [facility] Sodium 136 135 - 145 mMol/L 06/06/2024 4:17 AM EST [facility] Potassium 4.0 3.5 - 5.0 mMol/L 06/06/2024 4:17 AM [facility] Chloride 97(L) 98 - 107 mMol/L 06/06/2024 4:17 AM [facility] Carbon Dioxide 26 22 - 31 mMol/L 06/06/2024 4:17 AM [facility] Anion Gap 13 5 - 15 mMol/L 06/06/2024 4:17 AM [facility] Calcium 9.1 8.5 - 10.5 mg/dL 06/06/2024 4:17 AM [facility] Est Glomerular Filtration Rate - Male 72 mL/min/1. 73 m?? 06/06/2024 4:17 AM EST [facility] Comment: This patient's estimated GFR [...] AM EST Shahnaz Scanlon MD CHEMISTRY ORDERABLES [facility] [place] [address] * (ABNORMAL) POC, GLUCOSE (06/05/2024 10:31 PM EDT) Glucometer, POC 238(H) 65 - 199 mg/dL 06/05/2024 10:31 PM EDT [facility] Comment:Supplemental ranges: <140 mg/dL before meals <180 mg/dL all other times of the day. Blood CAPILLARY BLOOD / Unknown 06/05/2024 10:31 PM EDT 06/05/2024 10:31 PM EDT Melida Valdes MD POINT OF CARE TEST O RDERAPIETER Performing Organization Address City/[facility] Co de Phone Number [facility] [address] * (ABNORMAL) POC, GLUCOSE (06/05/2024 4:22 PM EDT) Glucometer, POC 205(H) 65 - 199 mg/dL 06/05/2024 4:22 PM EDT [facility] Comment:Supplemental ranges: <140 mg/dL before meals <180 mg/dL all other times of the day. Blood CAPILLARY BLOOD / Unknown 06/05/2024 4:22 PM EDT 06/05/2024 4:23 PM EDT Melida Valdes MD POINT OF CARE TEST O NIKA Performing Organization Address [facility] Co de Phone Number [facility] [place] [address] * (ABNORMAL) POC, GLUCOSE (06/05/2024 11:34 AM EDT) Glucometer, POC 211(H) 65 - 199 mg/dL 06/05/2024 11:34 AM EDT [facility] Comment:Supplemental ranges: <140 mg/dL before meals <180 mg/dL all other times of the day. Blood CAPILLARY BLOOD / Unknown 06/05/2024 11:34 AM EDT 06/05/2024 11:34 AM EDT Melida Valdes MD POINT OF CARE TEST O NIKA Performing Organization Address City/[facility] Co de Phone Number [facility] [place] [address] * Potassium (06/05/2024 9:04 AM EDT) [facility] Potassium 4.3 3.5 - 5.0 mMol/L 06/05/2024 9:50 AM EDT [facility] Blood VENOUS BLOOD SPECIMEN / Unknown Venipuncture / Unknown 06/05/2024 9:04 AM EDT 06/05/2024 9:21 AM EDT Shahnaz Scanlon MD CHEMISTRY ORDERABLES [facility] [place] [address] * POC, GLUCOSE (06/05/2024 7:27 AM EDT) [facility] Glucometer, POC 166 65 - 199 mg/dL 06/05/2024 7:27 AM EDT [facility] Comment:Supplemental ranges: <140 mg/dL before meals <180 mg/dL all other times of the day. Blood CAPILLARY BLOOD / Unknown 06/05/2024 7:27 AM EDT 06/05/2024 7:27 AM EDT Melida Valdes MD POINT OF CARE TEST O RDERABLES Performing Organization Address [facility]/ZIP Co de Phone Number [facility] [place] [address] * Heparin (unfractionated) Level (06/05/2024 3:44 AM EDT) [facility] UF Heparin 0.44 IU/mL 06/05/2024 4:07 AM EDT [facility] Comment: Heparin (anti-Xa) levels should be [...] EDT Shahnaz Scanlon MD HEMATOLOGY ORDERABLE S [facility] [place] [address] * (ABNORMAL) CBC (with Diff) (06/05/2024 3:44 AM EDT) White Blood Cell 10.83(H) 4.00 - 9.50 x10(3)/mc L 06/05/2024 3:56 AM EDT [facility] Red Blood Cell 5.07 4.58 - 5.54 x10(6)/mc L 06/05/2024 3:56 AM EDT [facility] Hemoglobin 15.3 13.7 - 16.5 g/dL 06/05/2024 3:56 AM [facility] Hematocrit 46.8 40.5 - 48.5 % 06/05/2024 3:56 AM EDT [facility] Mean Cell Volume 92.3 82.9 - 93.1 fL 06/05/2024 3:[facility] Cell Hemoglobin 30.2 27.5 - 32.1 pg 06/05/2024 3:56 AM EDT [facility] Mean Cell Hemoglobin Concentration 32.7 32.0 - 35.7 g/dL 06/05/2024 3:56 AM [facility] Platelet 219 145 - 357 x10(3)/mc L 06/05/2024 3:56 AM EDT [facility] Mean Platelet Volume 9.4 7.6 - 12.9 fL 06/05/2024 3:56 AM [facility] RDW Standard Deviation 46.7(H) 36.0 - 45.0 fL 06/05/2024 3:56 AM [facility] RDW coefficient of variation 13.9(H) 11.4 - 13.8 % 06/05/2024 3:56 AM [facility] NRBC% auto 0.0 % 06/05/2024 3:56 AM [facility] NRBC Absolute <0.01 <0.01 x10(3)/mc L 06/05/2024 3:56 AM [facility] Neutrophil % 61.5 % 06/05/2024 3:56 AM [facility] Neutrophil Absolute (ANC) - Automated 6.65(H) 1.70 - 6.10 x10(3)/mc L 06/05/2024 3:56 AM [facility] Lymph % 24.0 % 06/05/2024 3:56 AM [facility] Lymph Absolute 2.60 0.90 - 3.20 x10(3)/mc L 06/05/2024 3:56 AM [facility] Monocyte % 10.9 % 06/05/2024 3:56 AM [facility] Monocyte Absolute 1.18(H) 0.30 - 0.90 x10(3)/mc L 06/05/2024 3:56 AM [facility] Eos % 2.2 % 06/05/2024 3:56 AM [facility] Eos Absolute 0.24 0.00 - 0.40 x10(3)/mc L 06/05/2024 3:56 AM [facility] Basophil % 0.8 % 06/05/2024 3:56 AM [facility] Baso Absolute 0.09 0.00 - 0.10 x10(3)/mc L 06/05/2024 3:56 AM EDT [facility] Immature Gran % 0.6 % 3:56 AM EDT [facility] Immature Gran Absolute 0.07(H) 0.00 - 0.04 x10(3)/mc L 06/05/2024 3:56 AM EDT [facility] Blood VENOUS BLOOD SPECIMEN / Unknown Venipuncture / Unknown 06/05/2024 3:44 AM EDT 06/05/2024 3:50 AM EDT Shahnaz Scanlon MD HEMATOLOGY ORDERABLE S Performing Organization Address City/[facility]/ZIP Co de Phone Number [facility] [place] [address] * Magnesium (06/05/2024 3:44 AM EDT) Magnesium 0.92 0.69 - 1.07 mMol/L 06/05/2024 4:20 AM EDT [facility] Blood VENOUS BLOOD SPECIMEN / Unknown Venipuncture / Unknown 06/05/2024 3:44 AM EDT 06/05/2024 3:50 AM EDT Shahnaz Scanlon MD CHEMISTRY ORDERABLES Performing Organization Address City/[facility]/ZIP Co de Phone Number [facility] [place] [address] * (ABNORMAL) Basic Metabolic Panel (06/05/2024 3:44 AM EDT) Glucose 155 65 - 199 mg/dL 06/05/2024 4:20 AM EDT [facility] Comment:Glucose Concentratio n >=200 mg/dL plus symptoms is consistent with Diabetes Mellitus. Blood Urea Nitrogen 25(H) 10 - 20 mg/dL 06/05/2024 4:20 AM EDT [facility] Creatinine 1.16 0.80 - 1.50 mg/dL 06/05/2024 4:20 AM EDT [facility] Sodium 136 135 - 145 mMol/L 06/05/2024 4:20 AM [facility] Potassium 3.9 3.5 - 5.0 mMol/L 06/05/2024 4:20 AM [facility] Chloride 95(L) 98 - 107 mMol/L 06/05/2024 [facility] Carbon Dioxide 29 22 - 31 mMol/L 06/05/2024 4:20 AM [facility] Anion Gap 12 5 - 15 mMol/L 06/05/2024 4:20 AM [facility] Calcium 9.2 8.5 - 10.5 mg/dL 06/05/2024 4:20 AM [facility] Est Glomerular Filtration Rate - Male 69 mL/min/1. 73 m?? 06/05/2024 4:20 AM [facility] Comment: This patient's estimated GFR [...] AM EDT Shahnaz Scanlon MD CHEMISTRY ORDERABLES [facility] [place] [address] * Potassium (06/04/2024 10:34 PM EDT) Potassium 3.7 3.5 - 5.0 mMol/L 06/04/2024 11:03 PM EDT [facility] Blood VENOUS BLOOD SPECIMEN / Unknown Venipuncture / Unknown 06/04/2024 10:34 PM EDT 06/04/2024 10:39 PM EDT Shahnaz Scanlon MD CHEMISTRY ORDERABLES [facility] [place] [address] * POC, GLUCOSE (06/04/2024 7:43 PM EDT) Glucometer, POC 175 65 - 199 mg/dL 06/04/2024 7:43 PM EDT [facility] Comment:Supplemental ranges: <140 mg/dL before meals <180 mg/dL all other times of the day. Blood CAPILLARY BLOOD / Unknown 06/04/2024 7:43 PM EDT 06/04/2024 7:43 PM EDT Melida Vlades MD POINT OF CARE TEST O RDERABLES [facility] [address] * Potassium (06/04/2024 4:35 PM EDT) Potassium 4.0 3.5 - 5.0 mMol/L 06/04/2024 5:32 PM EDT [facility] Blood VENOUS BLOOD SPECIMEN / Unknown Venipuncture / Unknown 06/04/2024 4:35 PM EDT 06/04/2024 4:40 PM EDT Shahnaz Scanlon MD CHEMISTRY ORDERABLES [facility] [place] [address] * POC, GLUCOSE (06/04/2024 3:26 PM EDT) Glucometer, POC 154 65 - 199 mg/dL 06/04/2024 3:26 PM EDT [facility] Comment:Supplemental ranges: <140 mg/dL before meals <180 mg/dL all other times of the day. Blood CAPILLARY BLOOD / Unknown 06/04/2024 3:26 PM EDT 06/04/2024 3:27 PM EDT Melida Valdes MD POINT OF CARE TEST O RDERABLES Performing Organization Address [facility] Co de Phone Number [facility] [place] [address] * POC, GLUCOSE (06/04/2024 11:09 AM EDT) Glucometer, POC 188 65 - 199 mg/dL 06/04/2024 11:09 AM EDT [facility] Comment:Supplemental ranges: <140 mg/dL before meals <180 mg/dL all other times of the day. Blood CAPILLARY BLOOD / Unknown 06/04/2024 11:09 AM EDT 06/04/2024 11:09 AM EDT Delroy Fofana MD POINT OF CARE TEST ORDERABLES Performing Organization Address [facility] de Phone Number [facility] [place] [address] * Heparin (unfractionated) Level (06/04/2024 10:41 AM EDT) UF Heparin 0.43 IU/mL 06/04/2024 11:06 AM EDT [facility] Comment: Heparin (anti-Xa) levels should be [...] MD HEMATOLOGY ORDERABLE S Performing Organization Address City/[facility]/ZIP Co de Phone Number [facility] [place] [address] * Potassium (06/04/2024 10:41 AM EDT) Potassium 4.0 3.5 - 5.0 mMol/L 06/04/2024 11:11 AM EDT [facility] Blood VENOUS BLOOD SPECIMEN / Unknown Venipuncture / Unknown 06/04/2024 10:41 AM EDT 06/04/2024 10:46 AM EDT Shahnaz Scanlon MD CHEMISTRY ORDERABLES Performing Organization Address [facility] Co de Phone Number [facility] [place] [address] * POC, GLUCOSE (06/04/2024 7:11 AM EDT) Glucometer, POC 182 65 - 199 mg/dL 06/04/2024 7:12 AM EDT [facility] Comment:Supplemental ranges: <140 mg/dL before meals <180 mg/dL all other times of the day. Blood CAPILLARY BLOOD / Unknown 06/04/2024 7:11 AM EDT 06/04/2024 7:12 AM EDT Delroy Fofana MD POINT OF CARE TEST ORDERABLES Performing Organization Address [facility] Co de Phone Number [facility] [place] [address] * Heparin (unfractionated) Level (06/04/2024 4:38 AM EDT) Pathologist [facility] UF Heparin 0.41 IU/mL 06/04/2024 5:19 AM EDT [facility] Comment: Heparin (anti-Xa) levels should be [...] EDT Shahnaz Scanlon MD HEMATOLOGY ORDERABLE S [facility] [place] [address] * (ABNORMAL) CBC (with Diff) (06/04/2024 4:38 AM EDT) [facility] White Blood Cell 11.45(H) 4.00 - 9.50 x10(3)/mc L 06/04/2024 5:12 AM EDT [facility] Red Blood Cell 5.35 4.58 - 5.54 x10(6)/mc L 06/04/2024 5:12 AM EDT [facility] Hemoglobin 16.0 13.7 - 16.5 g/dL 06/04/2024 5:12 AM EDT [facility] Hematocrit 49.6(H) 40.5 - 48.5 % 06/04/2024 5:12 AM [facility] Mean Cell Volume 92.7 82.9 - 93.1 fL 06/04/2024 5:12 AM [facility] Mean Cell Hemoglobin 29.9 27.5 - 32.1 pg 06/04/2024 5:12 AM [facility] Mean Cell Hemoglobin Concentration 32.3 32.0 - 35.7 g/dL 06/04/2024 5:12 AM [facility] Platelet 222 145 - 357 x10(3)/mc L 06/04/2024 5:12 AM [facility] Mean Platelet Volume 9.5 7.6 - 12.9 fL 06/04/2024 5:12 AM [facility] RDW Standard Deviation 47.6(H) 36.0 - 45.0 fL 06/04/2024 5:12 AM [facility] RDW coefficient of variation 14.1(H) 11.4 - 13.8 % 06/04/2024 5:12 AM [facility] NRBC% auto 0.0 % 06/04/2024 5:12 AM [facility] NRBC Absolute <0.01 <0.01 x10(3)/mc L 06/04/2024 5:12 AM [facility] Neutrophil % 60.3 % 06/04/2024 5:12 AM [facility] Neutrophil Absolute (ANC) - Automated 6.91(H) 1.70 - 6.10 x10(3)/mc L 06/04/2024 5:12 AM [facility] Lymph % 25.1 % 06/04/2024 5:12 AM [facility] Lymph Absolute 2.87 0.90 - 3.20 x10(3)/mc L 06/04/2024 5:12 AM [facility] Monocyte % 10.6 % 06/04/2024 5:12 AM [facility] Monocyte Absolute 1.21(H) 0.30 - 0.90 x10(3)/mc L 06/04/2024 5:12 AM EDT [facility] Eos % 2.8 % 06/04/2024 5:12 AM EDT [facility] Eos Absolute 0.32 0.00 - 0.40 x10(3)/mc L 06/04/2024 5:12 AM EDT [facility] Basophil % 0.7 % 06/04/2024 5:12 AM EDT [facility] Baso Absolute 0.08 0.00 - 0.10 x10(3)/mc L 06/04/2024 5:12 AM EDT [facility] Immature Gran % 0.5 % 5:12 AM EDT [facility] Immature Gran Absolute 0.06(H) 0.00 - 0.04 x10(3)/mc L 06/04/2024 5:12 AM EDT [facility] Blood VENOUS BLOOD SPECIMEN / Unknown Venipuncture / Unknown 06/04/2024 4:38 AM EDT 06/04/2024 5:07 AM EDT Shahnaz Scanlon MD HEMATOLOGY ORDERABLE S [facility] [place] [address] * Magnesium (06/04/2024 4:38 AM EDT) Magnesium 0.84 0.69 - 1.07 mMol/L 06/04/2024 5:35 AM EDT [facility] Blood VENOUS BLOOD SPECIMEN / Unknown Venipuncture / Unknown 06/04/2024 4:38 AM EDT 06/04/2024 5:07 AM EDT Shahnaz Scanlon MD CHEMISTRY ORDERABLES [facility] [place] [address] * (ABNORMAL) Basic Metabolic Panel (06/04/2024 4:38 AM EDT) Glucose 118 65 - 199 mg/dL 06/04/2024 5:35 AM [facility] Comment:Glucose Concentratio n >=200 mg/dL plus symptoms is consistent with Diabetes Mellitus. Blood Urea Nitrogen 22(H) 10 - 20 mg/dL 06/04/2024 5:35 AM [facility] Creatinine 1.22 0.80 - 1.50 mg/dL 06/04/2024 5:35 AM [facility] Sodium 137 135 - 145 mMol/L 06/04/2024 5:35 AM [facility] Potassium 3.6 3.5 - 5.0 mMol/L 06/04/2024 5:35 AM [facility] Chloride 97(L) 98 - 107 mMol/L 06/04/2024 5:35 AM [facility] Carbon Dioxide 29 22 - 31 mMol/L 06/04/2024 5:35 AM [facility] Anion Gap 11 5 - 15 mMol/L 06/04/2024 5:35 AM [facility] Calcium 9.0 8.5 - 10.5 mg/dL 06/04/2024 5:35 AM [facility] Est Glomerular Filtration Rate - Male 65 mL/min/1. 73 m?? 06/04/2024 5:35 AM [facility] Comment: This patient's estimated GFR [...] Scanlon MD CHEMISTRY ORDERABLES Performing Organization Address [facility]/ZIP Co de Phone Number [facility] [place] [address] * Heparin (unfractionated) Level (06/03/2024 8:58 PM EDT) UF Heparin 0.27 IU/mL 06/03/2024 9:33 PM EDT [facility] Comment: Heparin (anti-Xa) levels should be [...] MD HEMATOLOGY ORDERABLE S Performing Organization Address City/[facility]/ZIP Co de Phone Number [facility] [place] [place] [address] * POC, GLUCOSE (06/03/2024 8:05 PM EDT) Glucometer, POC 136 65 - 199 mg/dL 06/03/2024 8:05 PM EDT [facility] Comment:Supplemental ranges: <140 mg/dL before meals <180 mg/dL all other times of the day. Blood CAPILLARY BLOOD / Unknown 06/03/2024 8:05 PM EDT 06/03/2024 8:05 PM EDT Delroy Fofana MD POINT OF CARE TEST ORDERABLES Performing Organization Address [facility] Co de Phone Number [facility] [place] [place] [address] * POC, GLUCOSE (06/03/2024 5:48 PM EDT) Glucometer, POC 191 65 - 199 mg/dL 06/03/2024 5:48 PM EDT [facility] Comment:Supplemental ranges: <140 mg/dL before meals <180 mg/dL all other times of the day. Blood CAPILLARY BLOOD / Unknown 06/03/2024 5:48 PM EDT 06/03/2024 5:49 PM EDT Delroy Fofana MD POINT OF CARE TEST ORDERABLES Performing Organization Address [facility] Co de Phone Number [facility] [place] [address] * CT Chest wo Contrast (Generic) (06/03/2024 4:33 PM EDT) WORKSTATION ID [id number] DH RAD Anatomical Region Laterality Modality Chest Computed Tomogra phy Impressions 06/03/2024 4:47 PM EDT Cardiomegaly. Biventricular ICD leads in place. Thank you for letting us participate in the care of this patient. ??If you are a health care provider and have any questions regarding this report, please contact the number below. ??For patients who have questions please contact the health client care manager that requested your imaging first. ? Electronically signed by: Stuart Aponte MD, [facility] ??([phone]), at 06/03/2024 4:47 PM Narrative 06/03/2024 4:47 [...] patients who have questions please contactthe health client care manager that requested your imaging first. Electronically signed by: Stuart Aponte MD, [facility]([phone]), at 06/03/2024 4:47 PM Bobby Loja MD IMG CT ORDERABLES * Carotid Duplex, Bilateral (06/03/2024 2:19 PM EDT) VB Text Report Department: Vascular Surgery Lab Patient: [id number] (GEORGE MEHTA) CPT: 60816 Referring Physician: BOBBY LOJA ?? Phone: Indications: [...] PM EDT Bobby Loja MD VASCULAR ORDERABLES VASCUBASE * Heparin (unfractionated) Level (06/03/2024 12:48 PM EDT) UF Heparin 0.15 IU/mL 06/03/2024 1:13 PM EDT [facility] Comment: Heparin (anti-Xa) levels should be [...] EDT Shahnaz Scanlon MD HEMATOLOGY ORDERABLE S [facility] [place] [address] * POC, GLUCOSE (06/03/2024 11:14 AM EDT) [facility] Signature Glucometer, POC 166 65 - 199 mg/dL 06/03/2024 11:14 AM EDT [facility] Comment:Supplemental ranges: <140 mg/dL before meals <180 mg/dL all other times of the day. Blood CAPILLARY BLOOD / Unknown 06/03/2024 11:14 AM EDT 06/03/2024 11:14 AM EDT Delroy Fofana MD POINT OF CARE TEST ORDERABLES [facility] [place] [address] * (ABNORMAL) Troponin-T, High Sensitivity 3 Hour (06/03/2024 10:06 AM EDT) Troponin-T, High Sensitivity 266(H) <=22 ng/L 06/03/2024 10:50 AM EDT [facility] Comment: This patient's troponin T concentration [...] troponin value can be found in the [facility] Test Catalog Troponin - https://[email or web address]/catalogs/565/files/19815 Reference: Fourth [place] Definition of Myocardial Infarction. Journal of the [place] [employer] 2018;72:3350-1190 Troponin-T, HS 3 hr delta 06/03/2024 10:50 AM EDT [facility] Comment:Delta troponin value not calculated, sample collected outside of delta calculation time limit. Blood VENOUS BLOOD SPECIMEN / Unknown IP Care Team Draw / Unknown 06/03/2024 10:06 AM EDT 06/03/2024 10:15 AM EDT Delroy Fofana MD CHEMISTRY ORDERABLE S [facility] [place] [place] [address] * ECHO COMPLETE W CONTRAST (06/03/2024 8:46 AM EDT) Anatomical Region Laterality Modality Cardiac Other 06/03/2024 6:52 AM EDT Narrative 06/03/2024 10:32 AM EDT [address] [place] [id number] ? Echocardiogram Report Name: GEORGE MEHTA ?Study Date: 06/03/2024 06:52 AM : 1955 ? Height: 168 cm ? Account: [id number] Age: 69 yrs ? Weight: 102 kg Gender: Male ?BSA: 2.1 m2 Ordering Physician: SHAHNAZ SCANLON Referring Physician: NEHAL QUINTERO Performed By: Sara Kebede RDCS Reason For Study: STEMI Exam Location: [facility]. Interpretation Summary -Left ventricular systolic function [...] fellow performed study of today's date). Procedure Complete-76113. Image enhancement Optison was used for left [...] Note Jonnie Jordan MD - 06/03/2024 [address] [id number] Echocardiogram Report Name: GEORGE MEHTA Study Date: 406:52 AM : 1955 Height: 168 cm Account: [id number] Age: 69 yrs Weight: 102 kg Gender: Male BSA: 2.1 m2 Ordering Physician: SHAHNAZ SCANOLN Referring Physician: NEHAL QUINTERO Performed By: Sara Kebede RDCS Reason For Study: STEMI Exam Location: [facility]. Interpretation Summary -Left ventricular systolic function [...] a fellow performed study of's date). Procedure Complete-19989. Image enhancement Optison was used for left [...] 289(H) <=22 ng/L 06/03/2024 9:26 AM EDT [facility] Comment: This patient's troponin T concentration [...] troponin value can be found in the [facility] Test Catalog Troponin - https://[email or web address].org/catalogs/565/files/40097 Reference: [place] Definition of Myocardial Infarction. Journal of the [place] [employer] 2018;72:0835-3853 Troponin-T, HS 1 hr delta 5 ng/L 06/03/2024 9:26 AM EDT [facility] Comment:The 1 hour Troponin T delta value is the absolute difference between the Troponin T concentrations of the initial and subsequent sample collected between 45 - 120 minutes following the initial collection. Blood VENOUS BLOOD SPECIMEN / Unknown IP Care Team Draw / Unknown 06/03/2024 8:27 AM EDT 06/03/2024 8:37 AM EDT Delroy Fofana MD CHEMISTRY ORDERABLE S [facility] [place] [place] [address] * POC, GLUCOSE (06/03/2024 7:54 AM EDT) [facility] Signature Glucometer, POC 195 65 - 199 mg/dL 06/03/2024 7:55 AM EDT [facility] Comment:Supplemental ranges: <140 mg/dL before meals <180 mg/dL all other times of the day. Blood CAPILLARY BLOOD / Unknown 06/03/2024 7:54 AM EDT 06/03/2024 7:55 AM EDT Nuha Rojo MD POINT OF CARE TEST ORDERABLES [facility] [place] [address] * (ABNORMAL) Troponin-T, High Sensitivity (06/03/2024 7:39 AM EDT) Troponin-T, High Sensitivity Initial 284(H) <=22 ng/L 06/03/2024 8:29 AM EDT [facility] Comment: This patient's troponin T concentration [...] troponin value can be found in the [facility] Test Catalog Troponin - https://[email or web address]-.testcatalog.org/catalogs/565/files/25200 Reference: [place] Definition of Myocardial Infarction. Journal of the [place] [employer]iology 2018;72:5101-2923 Blood VENOUS BLOOD SPECIMEN / Unknown IP Care Team Draw / Unknown 06/03/2024 7:39 AM EDT 06/03/2024 7:48 AM EDT Delroy Fofana MD CHEMISTRY ORDERABLE S [facility] [place] [address] * (ABNORMAL) Troponin-T, High Sensitivity 3 Hour (06/03/2024 5:11 AM EDT) Troponin-T, High Sensitivity 254(H) <=22 ng/L 06/03/2024 5:49 AM EDT [facility] Comment: This patient's troponin T concentration [...] troponin value can be found in the [facility] Test Catalog Troponin - https://[email or web address]-.testcatalog.org/catalogs/565/files/33759 Reference: [place] Definition of Myocardial Infarction. Journal of the [place] [employer] 2018;72:1221-7320 Troponin-T, HS 3 hr delta 46 ng/L 06/03/2024 5:49 AM EDT [facility] Comment:The 3 hour Troponin T delta value is the absolute difference between the Troponin T concentrations of the initial and subsequent sample collected between 2 h: 45 min and 6 h following the initial collection Blood VENOUS BLOOD SPECIMEN / Unknown IP Care Team Draw / Unknown 06/03/2024 5:11 AM EDT 06/03/2024 5:20 AM EDT Shahnaz Scanlon MD CHEMISTRY ORDERABLES [facility] [place] [address] * (ABNORMAL) Troponin-T, High Sensitivity 1 Hour (06/03/2024 3:07 AM EDT) Troponin-T, High Sensitivity 218(H) <=22 ng/L 06/03/2024 3:39 AM EDT [facility] Comment: This patient's troponin T concentration [...] troponin value can be found in the [facility] Test Catalog Troponin - https://[email or web address].[email or web address]/catalogs/565/files/42775 Reference: [place] Definition of Myocardial Infarction. Journal of the [place] College [employer]iology 2018;72:3271-9280 Troponin-T, HS 1 hr delta 10 ng/L 06/03/2024 3:39 AM EDT [facility] Comment:The 1 hour Troponin T delta value is the absolute difference between the Troponin T concentrations of the initial and subsequent sample collected between 45 - 120 minutes following the initial collection. Blood VENOUS BLOOD SPECIMEN / Unknown IP Care Team Draw / Unknown 06/03/2024 3:07 AM EDT 06/03/2024 3:12 AM EDT Shahnaz Scanlon MD CHEMISTRY ORDERABLES [facility] [place] [address] * XR Chest One View (06/03/2024 2:41 AM EDT) WORKSTATION ID [id number] RAD Anatomical Region Laterality Modality Chest N/A Digital Radiogra phy Impressions 06/03/2024 3:06 AM EDT No radiographically evident acute cardiopulmonary process. Thank you for letting us participate in the care of this patient. ??If you are a health care provider and have any questions regarding this report, please contact the number below. ??For patients who have questions please contact the health client care manager that requested your imaging first. ? Electronically signed by: Corazon Mauro MD, [facility] ([phone]), at 06/03/2024 3:06 AM Narrative 06/03/2024 3:06 AM EDT EXAMINATION: XR [...] patients who have questions please contactthe health client care manager that requested your imaging first. Shahnaz Scanlon MD IMG DX ORDERABLES * Heparin (unfractionated) Level (06/03/2024 2:13 AM EDT) UF Heparin 0.56 IU/mL 06/03/2024 4:13 AM EDT [facility] Comment: Heparin (anti-Xa) levels should be [...] EDT Shahnaz Scanlon MD HEMATOLOGY ORDERABLE S [facility] [place] [address] * (ABNORMAL) Troponin-T, High Sensitivity (06/03/2024 2:13 AM EDT) Troponin-T, High Sensitivity Initial 208(H) <=22 ng/L 06/03/2024 3:02 AM EDT [facility] Comment: This patient's troponin T concentration [...] troponin value can be found in the [facility] Test Catalog Troponin - https://one-.testcatalog.org/catalogs/565/files/83061 Reference: [place] Definition of Myocardial Infarction. Journal of the [place] [employer] 2018;72:3912-1025 Blood VENOUS BLOOD SPECIMEN / Unknown IP Care Team Draw / Unknown 06/03/2024 2:13 AM EDT 06/03/2024 2:32 AM EDT Shahnaz Scanlon MD CHEMISTRY ORDERABLES Performing Organization Address City/[facility]/ZIP Co de Phone Number [facility] [address] * Magnesium (06/03/2024 2:13 AM EDT) Magnesium 0.86 0.69 - 1.07 mMol/L 06/03/2024 3:02 AM EDT [facility] Blood VENOUS BLOOD SPECIMEN / Unknown IP Care Team Draw / Unknown 06/03/2024 2:13 AM EDT 06/03/2024 2:32 AM EDT Shahnaz Scanlon MD CHEMISTRY ORDERABLES [facility] [place] [address] * Basic Metabolic Panel (06/03/2024 2:13 AM EDT) Glucose 126 65 - 199 mg/dL [facility]24 [facility] Comment:Glucose Concentratio n >=200 mg/dL plus symptoms is consistent with Diabetes Mellitus. Blood Urea Nitrogen 20 10 - 20 mg/dL 06/03/2024 3:02 AM EDT [facility] Creatinine 1.13 0.80 - 1.50 mg/dL 06/03/2024 3:02 AM [facility] Sodium 139 135 - 145 mMol/L 06/03/2024 3:02 AM [facility] Potassium 4.2 3.5 - 5.0 mMol/L 06/03/2024 3:02 AM [facility] Chloride 101 98 - 107 mMol/L 06/03/2024 3:02 AM [facility] Carbon Dioxide 26 22 - 31 mMol/L 06/03/2024 3:02 AM [facility] Anion Gap 12 5 - 15 mMol/L 06/03/2024 3:02 AM [facility] Calcium 9.8 8.5 - 10.5 mg/dL 06/03/2024 3:02 AM [facility] Est Glomerular Filtration Rate - Male 71 mL/min/1. 73 m?? 06/03/2024 3:02 AM [facility] Comment: This patient's estimated GFR [...] AM EDT Shahnaz Scanlon MD CHEMISTRY ORDERABLES [facility] [place] [address] * (ABNORMAL) CBC (with Diff) (06/03/2024 2:13 AM EDT) White Blood Cell 11.16(H) 4.00 - 9.50 x10(3)/mc L 06/03/2024 2:37 AM EDT [facility] Red Blood Cell 5.09 4.58 - 5.54 x10(6)/mc L 06/03/2024 2:37 AM EDT [facility] Hemoglobin 15.0 13.7 - 16.5 g/dL 06/03/2024 2:37 AM EDT [facility] Hematocrit 47.4 40.5 - 48.5 % 06/03/2024 2:37 AM EDT [facility] Mean Cell Volume 93.1 82.9 - 93.1 fL 06/03/2024 2:37 AM EDT [facility] Mean Cell Hemoglobin 29.5 27.5 - 32.1 pg 06/03/2024 2:37 AM EDT [facility] Mean Cell Hemoglobin Concentration 31.6(L) 32.0 - 35.7 g/dL 06/03/2024 2:37 AM EDT [facility] Platelet 217 145 - 357 x10(3)/mc L 06/03/2024 2:37 AM EDT [facility] Mean Platelet Volume 9.5 7.6 - 12.9 fL 06/03/2024 2:37 AM EDT [facility] RDW Standard Deviation 49.0(H) 36.0 - 45.0 fL 06/03/2024 2:37 AM [facility] RDW coefficient of variation 14.1(H) 11.4 - 13.8 % 06/03/2024 2:37 AM [facility] NRBC% auto 0.0 % 06/03/2024 2:37 AM [facility] NRBC Absolute <0.01 <0.01 x10(3)/mc L 06/03/2024 2:37 AM [facility] Neutrophil % 58.4 % 06/03/2024 2:37 AM [facility] Neutrophil Absolute (ANC) - Automated 6.51(H) 1.70 - 6.10 x10(3)/mc L 06/03/2024 2:37 AM [facility] Lymph % 29.9 % 06/03/2024 2:37 AM [facility] Lymph Absolute 3.34(H) 0.90 - 3.20 x10(3)/mc L 06/03/2024 2:37 AM [facility] Monocyte % 8.1 % 06/03/2024 2:37 AM [facility] Monocyte Absolute 0.90 0.30 - 0.90 x10(3)/mc L 06/03/2024 2:37 AM [facility] Eos % 2.4 % 06/03/2024 2:37 AM [facility] Eos Absolute 0.27 0.00 - 0.40 x10(3)/mc L 06/03/2024 2:37 AM [facility] Basophil % 0.8 % 06/03/2024 2:37 AM [facility] Baso Absolute 0.09 0.00 - 0.10 x10(3)/mc L 06/03/2024 2:37 AM [facility] Immature Gran % 0.4 % 2:37 AM [facility] Immature Gran Absolute 0.05(H) 0.00 - 0.04 x10(3)/mc L 06/03/2024 2:37 AM [facility] Blood VENOUS BLOOD SPECIMEN / Unknown IP Care Team Draw / Unknown 06/03/2024 2:13 AM EDT 06/03/2024 2:31 AM EDT Shahnaz Scanlon MD HEMATOLOGY ORDERABLE S [facility] [place] [address] * Lipid Panel (Reflex Direct LDL) (06/03/2024 2:13 AM EDT) Cholesterol, Total 76 mg/dL 06/03/2024 3:02 AM [facility] Comment: Desirable: < 200 mg/dL Borderline High: 200 - 239 mg/dL High: > or = 240 mg/dL Triglyceride 75 mg/dL 06/03/2024 3:02 AM [facility] Comment: Normal: <150 mg/dL Borderline High: 150-199 mg/dL High: 200-499 mg/dL Very High: > or =500 mg/dL HDL Cholesterol 39 mg/dL 3:02 AM [facility] Comment:Males: High Risk: <4 0 mg/dL LDL Cholesterol 21 mg/dL 3:02 AM [facility] Comment: Desirable: <100 mg/dL Above Desirable: 100-129 mg/dL Borderline High: 130-159 mg/dL High: 160-189 mg/dL Very High: > or =190 mg/dL Note: LDL calculation updated to the NIH LDL formula as of 03/07/2024 Non-HDL Cholesterol 37 mg/dL 06/03/2024 3:02 AM [facility] Comment: Desirable: <130 mg/dL Above Desirable: 130-159 mg/dL Borderline High: 160-189 mg/dL High: 190-219 mg/dL Very High: > or = 220 mg/dL Blood VENOUS BLOOD SPECIMEN / Unknown IP Care Team Draw / Unknown 06/03/2024 2:13 AM EDT 06/03/2024 2:32 AM EDT [facility] - 06/03/2024 3:02 AM [...] ACC/AHA Guidelines (most recently Bruce et al. [facility] 05/07/22): * For individuals with atherosclerotic cardiovascular [...] Scanlon MD CHEMISTRY ORDERABLES Performing Organization Address [facility] Co de Phone Number [facility] [place] [address] * (ABNORMAL) APTT (06/03/2024 2:13 AM EDT) Partial Thromboplastin Time 105(HHH) 25 - 37 sec 06/03/2024 4:13 AM EDT [facility] Comment: The PTT is NOT appropriate for heparin monitoring. Use the Anti-Xa level for heparin monitoring (HEP UFH) or LMWH monitoring (HEP LMW). A PTT less than 37 seconds generally indicates adequate hemostasis. Blood VENOUS BLOOD SPECIMEN / Unknown IP Care Team Draw / Unknown 06/03/2024 2:13 AM EDT 06/03/2024 2:32 AM EDT Shahnaz Scanlon MD HEMATOLOGY ORDERABLE S Performing Organization Address [facility] Co de Phone Number [facility] [place] [address] * Prothrombin Time (06/03/2024 2:13 AM EDT) Prothrombin Time 11.5 9.4 - 12.5 sec 06/03/2024 4:13 AM EDT [facility] International Normalization Ratio 1.0 <=4.9 06/03/2024 4:13 AM EDT [facility] Comment: An INR < 2.0 indicates [...] EDT Shahnaz Scanlon MD HEMATOLOGY ORDERABLE S [facility] [place] [address] * Hepatic Function Panel (06/03/2024 2:13 AM EDT) Albumin 3.8 3.2 - 5.2 g/dL 06/03/2024 3:02 AM EDT [facility] Aspartate Aminotransferase 20 <=39 unit/L 06/03/2024 3:02 AM EDT [facility] Alanine Aminotransferase 12 0 - 55 unit/L 06/03/2024 3:02 AM EDT [facility] Alkaline Phosphatase 76 40 - 130 unit/L 06/03/2024 3:02 AM EDT [facility] Bilirubin, Total 0.4 <=1.3 mg/dL 06/03/2024 3:02 AM EDT [facility] Bilirubin, Direct <0.2 0.0 - 0.3 mg/dL 06/03/2024 3:02 AM EDT [facility] Protein, Total 7.0 6.1 - 8.0 g/dL 06/03/2024 3:02 AM EDT [facility] Blood VENOUS BLOOD SPECIMEN / Unknown IP Care Team Draw / Unknown 06/03/2024 2:13 AM EDT 06/03/2024 2:32 AM EDT Shahnaz Scanlon MD CHEMISTRY ORDERABLES [facility] [place] [address] * (ABNORMAL) pro-Brain Natriuretic Peptide (06/03/2024 2:13 AM EDT) NT-proBNP 1,628(H) <=124 pg/mL 06/03/2024 4:15 AM EDT [facility] Blood VENOUS BLOOD SPECIMEN / Unknown IP Care Team Draw / Unknown 06/03/2024 2:13 AM EDT 06/03/2024 2:32 AM EDT Shahnaz Scanlon MD CHEMISTRY ORDERABLES Performing Organization Address City/[facility]/ZIP Co de Phone Number [facility] [place] [address] * Phosphorus (06/03/2024 2:13 AM EDT) Phosphorus 4.4 2.5 - 4.5 mg/dL 06/03/2024 3:02 AM EDT [facility] Blood VENOUS BLOOD SPECIMEN / Unknown IP Care Team Draw / Unknown 06/03/2024 2:13 AM EDT 06/03/2024 2:32 AM EDT Shahnaz Scanlon MD CHEMISTRY ORDERABLES Performing Organization Address City/[facility]/ZIP Co de Phone Number [facility] [place] [address] * EKG 12 Lead (06/03/2024 1:45 AM EDT) Ventricular rate 63 BPM MUSE SYSTEM Atrial Rate 63 BPM MUSE SYSTEM P-R Interval 168 ms MUSE SYSTEM QRS Duration 96 ms MUSE SYSTEM Q-T Interval 400 ms MUSE SYSTEM QTC Calculated (Bezet) 409 ms MUSE SYSTEM Calculated P [place] 65 degrees MUSE SYSTEM Calculated R [place] 70 degrees MUSE SYSTEM Calculated T [place] -86 degrees MUSE SYSTEM INTERPRETATION Atrial-sensed ventricular-paced rhythm Abnormal ECG No previous ECGs available I personally reviewed the tracing and edited the fellows interpretation Confirmed by fellow Sunni Agudelo ([id number]) on 06/04/2024 3:55:40 PM Confirmed by MD Tamia, Stuart Perry ([id number]) on 06/05/2024 11:46:48 AM MUSE SYSTEM 06/03/2024 1:45 AM EDT 06/05/2024 11:46 AM EDT Shahnaz Scanlon MD ECG ORDERABLES MUSE SYSTEM * CARDIAC CATHETERIZATION (06/03/2024 12:42 AM EDT) Anatomical Region Laterality Modality Other Narrative 06/04/2024 2:22 PM EDT ?[facility] ? Cardiac Catheterization/Intervention Report ? Patient Name: Tyson, George L. ? Procedure Date: 06/02/2024 ? A #: [id number] ? Primary Physician: Nuha Shen I ? Case #: [id number] ? File Name: [id number] ? Catheterization Order Number: [id number] ? [facility] ? Final Report [place], [place] ? Patient Name: ? George L. Tyson ? ID#: ?[id number] ? : ?1955 ? Procedure Date: ? June 02, 2024 ? Case #: ? [id number] ? Room: ? 5 ? Case Physician: [...] was designated as ASA Class IV. The CSHA clinical frailty ?scale is 5: Mildly Frail. ? Diagnostic Tests: ?Electrocardiography: ? EKG was assessed by ECG. EKG was Abnormal. EKG showed ST Deviation ? >= 0.5 mm. ?Medications Prior to Procedure: ? Sacubitril and Valsartan, Aspirin, Beta Erik, Statin and ? Thrombolytic (any). ? Indications for Diagnostic Cath: ?The priority of the diagnostic procedure was Emergent. The indication for ?the pharmaceutical laboratory technician visit is ACS less than [...] ?3.5 guiding catheter and a 3.5 Fr [employer] 20 Mhz using Manual ?pullback. ??Imaging was [...] 3.5 guiding catheter and a 3.5 Fr [place] [employer] 20 Mhz using ?Manual pullback. ??Imaging was [...] ?catheterization and IVUS # coronary. ? Nuha Shen M.D. ? Electronically Signed by: Nuha Shen M.D. ? Report Finalized: 06/04/2024 ??14:16 ? Report Last Ammended: 07/20/2024 ??15:36 ? Procedure Note Nuha Shen MD - 07/20/2024 [facility] Cardiac Catheterization/Intervention Report Patient Name: George Mehta Procedure Date: 06/02/2024 A #: [id number] Primary Physician: Nuha Shen I Case #: [id number] File Name: [id number] Catheterization Order Number: [id number] [facility] FinalReport [place], [place] Patient Name: George Mehta ID#:[id number] :1955 Procedure Date: June 02, 2024 Case [...] was designated as ASA Class IV. The [facility] clinicalfrailty scale is 5: Mildly Frail. Diagnostic Tests: Electrocardiography: EKG was assessed by ECG. EKG was Abnormal. EKG showed STDeviation >= 0.5 mm. Medications Prior to Procedure: Sacubitril and Valsartan, Aspirin, Beta Erik, Statin and Thrombolytic (any). Indications for Diagnostic Cath: The priority of the diagnostic procedure was Emergent. Theindication for the pharmaceutical laboratory technician visit is ACS less than [...] units of heparin were administered. A total ft891fo of Omnipaque were opened, 84cc of Omnipaque were administered pra99yc of Omnipaque were wasted. Radiation: Fluoro time [...] 3.5 guiding catheter and a 3.5 Fr [place] [employer] 20 Mhz usingManual pullback. Imaging was successful. [...] 3.5 guiding catheter and a 3.5 Fr [place] [employer] 20 Mhzusing Manual pullback. Imaging was successful. Indication: IVUS performed for pre intervention planning. Findings Pre-Intervention: scattered plaque, calcification and [id number] degrees calcification. Findings Post-Intervention: Stent not imaged [...] * POC, GLUCOSE (06/02/2024 11:31 PM EDT) [facility] Glucometer, POC 156 65 - 199 mg/dL 06/02/2024 11:31 PM EDT [facility] Comment:Supplemental ranges: <140 mg/dL before meals <180 mg/dL all other times of the day. Blood CAPILLARY BLOOD / Unknown 06/02/2024 11:31 PM EDT 06/02/2024 11:31 PM EDT Nuha Rojo MD POINT OF CARE TEST ORDERABLES [facility] [place] [address] documented in this encounter Visit Diagnoses Not [...] Given 06/21/2024 12:02 AM EST 975 mg aspirin chewable tablet 81 mg 81 [...] next dose. Warning Vesicant/Irritant Medication , Routine empagliflozin (Jardiance) tablet 25 mg 25 mg, [...] 20 mg, Oral, DAILY, First dose on Miguelina 06/03/24 at 0900, Until Discontinued, Routine Given 06/21/2024 8:38 AM EST 20 mg Given 06/20/2024 8:12 AM EST 20 mg Given 06/19/2024 8:24 AM EST 20 mg fentaNYL (pf) (50 mcg/mL) multi-dose injection PRN, Starting on Fri06/13/24 at 0928, Until Fri06/14/24 at 1437, Intra-Operative (Intra-Procedure), Routine Given 06/13/2024 9:33 AM EST 25 mcg Given 06/13/2024 9:28 AM EST 25 mcg furosemide (Lasix) tablet 60 mg 60 mg, Oral, DAILY, First dose on Fri06/20/24 at 1000, Until Discontinued, Routine Given 06/21/2024 [...] Given 06/20/2024 5:44 PM EST 600 mg insulin glargine-ygfn (Semglee) (100 unit/mL) subcutaneous [...] EST 1 patch 11- Chest (Left) lidocaine (Xylocaine) 1% (10 mg/mL) injection PRN, Starting on Fri06/13/24 at 0928, Until Fri06/14/24 at 1437, Intra-Operative (Intra-Procedure), Routine Given 06/13/2024 9:28 AM EST 5 mLs magnesium hydroxide (Milk of Magnesia) (80mg/mL) oral liquid 2,400 mg 2,400 mg (30 mL), Oral, DAILY, First dose on Fri06/16/24 at 0900, Until Discontinued, Post-op day 2. Do not use with renal insufficiency., Routine Given 06/20/2024 8:12 AM EST 2,400 mg Given 06/18/2024 8:44 AM EST 2,400 mg Given 06/17/2024 8:46 AM EST 2,400 mg midazolam (pf) (Versed) (1 mg/mL) multi-dose injection PRN, Starting on Fri06/13/24 at 0928, Until Fri06/14/24 at 1437, Intra-Operative (Intra-Procedure), Routine Given 06/13/2024 9:33 AM EST 0.5 mg Given 06/13/2024 9:28 AM EST 0.5 mg oxyCODONE (Roxicodone) tablet 10 mg 10 [...] 2100, Last dose on Fri06/23/24 at 0900, Band Scroll Saw Operator recommended duration is 3 days., Routine Given [...] Given 06/19/2024 8:23 AM EST 40 mg sacubitriL-valsartan (Entresto) 49-51 mg per tablet 1 [...] 8:02 PM EST 2 tablets sodium chloride ([place]) 0.65 % nasal spray 1 spray 1 [...] Given 06/20/2024 5:31 AM EST 5 mLs documented in this encounter Active and Recently [...] Christina Myers RN)1203 (Given - Provider: Shazia Mcdonald RN) aspirin chewable tablet 81 mg(Linked Group 2) 81 mg, Oral, DAILY, First dose on Fri06/14/24 at 1500, Until Discontinued, Routine 0823 (Given - Provider: Mary Lou Lane RN) 0812 (Given - Provider: Michelle Orozco RN) 0837 (Given - Provider: Shazia Mcdonald RN) atorvastatin (Lipitor) tablet 80 mg 80 mg, Oral, EVERY EVENING, First dose on Miguelina 06/03/24 at 0130, Until Discontinued, Routine 175 (Given [...] Orozco RN)1750 (Given - Provider: Michelle Orozco RN)2042 (Given - Provider: Christina Myers RN) 0841 (Given - Provider: Shazia Mcdonald RN)1300 (Due) escitalopram (Lexapro) tablet 20 mg 20 mg, Oral, DAILY, First dose on Fri06/03/24 at 0900, Until Discontinued, Routine 0824 (Given - Provider: Mary Lou Lane, JAMIE) 0812 (Given - Provider: Michelle Orozco, JAMIE) 0838 (Given - Provider: Shazia Mcdonald, JAMIE) furosemide (Lasix) (10 mg/mL) injection 40 mg (CANCELED) 40 mg, Intravenous, 2 TIMES DAILY, First dose on Miguelina 06/17/24 at 0900, Until Discontinued 0832 (Given - Provider: Mary Lou Lane, JAMIE)1755 (Given - Provider: Mary Lou Lane RN) 0813 (Given - Provider: Michelle Orozco, JAMIE) furosemide (Lasix) tablet 60 mg 60 mg, [...] Discontinued, Routine 0841 (Given - Provider: Shazia Mcdonald RN) insulin glargine-ygfn (Semglee) (100 unit/mL) subcutaneous injection vial 35 Units (CANCELED) 35 Units, Subcutaneous, DAILY, First dose (after last modification) on 06/20/24 at 0900, Until Discontinued, Routine 0822 (Given - Provider: Michelle Orozco RN) insulin glargine-ygfn (Semglee) (100 unit/mL) subcutaneous injection vial 45 Units (CANCELED) 45 Units, Subcutaneous, DAILY, First dose (after last modification) on [facility] 06/19/24 at 0900, Until Discontinued, Routine 0821 (Given - Provider: Mary Lou Lane, JAMIE) insulin lispro (HumaLOG;Admelog) (100 unit/mL) subcutaneous injection vial 0-15 Units 0-15 Units, Subcutaneous, 3 TIMES DAILY WITH MEALS, First dose (after last modification) on 06/19/24 at 0800, Until Discontinued, MEAL ASSOCIATED Give 1 unit: 5 grams of carbohydrate Hold if not eating or if BG less than 70 mg/dL., Routine 0820 (Given - Provider: Mary Lou Lane RN)1237 (Given - Provider: Mary Lou Lane, JAMIE)1802 (Given - Provider: Mary Lou Lane, JAMIE) 0825 (Given - Provider: Michelle Orozco RN [...] Order parameters not met - Comment: BG 129)2000 (Not Given - Provider: Christina Myers RN [...] Order parameters not met - Comment: BG 124)2000 (Not Given - Provider: Christina Myers RN [...] and then remove for 12 hours., Routine 0828 (Not Given - Provider: Mary Lou Lane RN - Reason: Patient/family refused)2021 (Patch Applied - Provider: Christina Myers RN) 08 (Patch Removed - Provider: Michelle Orozco RN)08 (Patch Applied - Provider: Michelle Orozco RN)2019 (Patch Removed - Provider: Christina Myers RN) 0843 (Patch Applied - Provider: Shazia Mcdonald, JAMIE)1307 (Due: Patch Removed - Provider: Automatic Discharge Provider - Comment: Time automatically adjusted from order being discontinued) magnesium hydroxide (Milk of Magnesia) (80mg/mL) oral liquid 2,400 mg 2,400 mg (30 mL), Oral, DAILY, First dose on Fri06/16/24 at 0900, Until Discontinued, Post-op day 2. Do not use with renal insufficiency., Routine 09 (Not Given - Provider: Mary Lou Lane RN - Reason: Patient/family refused) 0812 (Given - Provider: Michelle Orozco RN) 0900 (Not Given - Provider: Shazia Mcdonald RN - Reason: Patient/family refused) oxymetazoline (Afrin) 0.05 % nasal spray 2 spray 2 spray, Each Nare, 2 TIMES DAILY, 6 doses, First dose on Fri06/20/24 at 2100, Last dose on Fri06/23/24 at 0900, Band Scroll Saw Operator recommended duration is 3 days., Routine 2043 [...] 40 mEq, Oral, ONCE, 1 dose, On Fri06/19/24 at 0645, potassium chloride ER particle/crystal tablets (Klor-Con M) may be broken in half and each half swallowed separately. Tablets can be dissolved in ~4 ounces of water; allow ~2 minutes to dissolve, stir well and drink immediately. Do not crush, chew, or suck on tablet., Routine 0629 (Given - Provider: Christina Myers RN) potassium chloride ER (Klor-Con M) crystal tablet 40 mEq (COMPLETED) 40 mEq, Oral, ONCE, 1 dose, On Fri06/20/24 at 0700, potassium chloride ER particle/crystal tablets [...] Comment: 117/75) 0813 (Given - Provider: Michelle Orozco RN)2041 (Given - Provider: Christina Myers RN - Comment: 93/72) 0837 (Given - Provider: Shazia Mcdonald RN) senna-docusate (Pericolace) 8.6-50 mg per tablet 2 [...] oral route first line., Routine sodium chloride ([place]) 0.65 % nasal spray 1 spray 1 [...] 6 hours upon arrival to Unit. Give DC if unable to take PO, Routine Group [...] Routine documented in this encounter Care Teams Business Management Manager Relationship Specialty Start Date End Date Mauro Berumen MD [address] [place] [address] PCP - General Family Medicine 06/02/24 documented as of this encounter
--- OUTSIDE RECORDS SUMMARY | 2024-08-04 20:36 | XMS_ITS | Encounter Summary ---
Author Organization [place] [address] Care Team Providers Care Motion Picture Photographer Name Role Phone Mauro Berumen MD Primary Care Provider [phone] Reason for Visit * Auth/Cert Specialty Diagnoses / Procedures Referred By Carroll lopez Referred To Contact Diagnoses STEMI (ST elevation myocardial infarction) STEMI Procedures CARDIAC CATHETERIZATION EMERGENCY Delroy Monterroso MD [facility] [place] [address] [place] Referral ID Status Reason Start Date Expiration Date Visits Re quested Visits Authorized [id number] 1 1 Encounter Details Date Type Department Care Team (Late st Contact Info) Description 06/02/2024 11:00 PM EDT - 06/03/2024 12:18 AM EDT Surgery [place] [address] Nuha Shen MD [facility] [place] [address] CARDIAC CATHETERIZATION Social History Tobacco Use Types Packs/Day Years Used Date Smoking Tobacco: Every Day Cigarettes Smokeless Tobacco: Never Tobacco Cessation:Ready to Q uit: No; Counseling Given: Yes [facility] Utilities Answer Date Recorded In the past 12 months has [employer], gas, oil, or water [employer] threatened to shut off services in your [...] any time in the past 12 m [facility], were you homeless or living in a [...] Sign Reading Time Taken Comments Blood Pressure - - Pulse - - Temperature - - Respiratory Rate - - Oxygen Saturation - - Inhaled Oxygen Concentration - - Weight 102 kg (224 lb 13.9 oz) 06/02/2024 10:59 PM EDT Height 167.6 cm (5' 6) 06/02/2024 10:59 PM EDT Body Mass Index 34.15 06/02/2024 10:59 PM EDT documented in this encounter Discharge Summaries * Keila Hanley APRN - 06/21/2024 8:31 AM EST Inpatient - Discharge Summary Patient Name: George Mehta Patient Age: 69 y.o. Birthdate: 1955 Language: Hungarian Race: Choose not to Disclose Ethnicity: Not nor Admit Date: 06/02/2024 Discharge Date: 06/21/2024 Attending Physician: Bobby Loja MD Follow-up Recommendations for Providers: Please continue routine management of cardiovascular risk factors including blood pressure, lipids,glucose, etc. Please note any changes to medications. Patient to follow up with PCP, Mauro Berumen MD, in 1-2 weeks. Patient to follow up with Advertising Representative, Kristen Cardenas in 2-3 weeks. Patient to follow up with Cardiac Surgeon, Dr. Bobby Loja, in 4 wks. Inpatient Provider Contact Information: [facility] Section of Cardiac Surgery [facility] [address] FAX [phone] Discharge Diagnoses (Hospital Problems) Primary Diagnoses: STEMI [...] (WRVU 33.75) performed by Bobby Loja MD [facility] OR PRO CABG, ARTERY-VEIN, TWO N/A 06/14/2024 @CABG, TWO VENOUS GRAFTS & ARTERIAL GRAFT (WRVU 7.93) [facility] ENDOSCOPY W/VIDEO-ASST VEIN HARVEST, CABG N/A 06/14/2024 ENDOSCOPIC HARVEST VEIN(S) FOR CABG (WRVU 0.31) performed by Bobby Loja MD at [facility] MAIN OR PRO EXC MEDIASTINAL TUMOR N/A 06/14/2024 @EXCISION OF MEDIASTINAL TUMOR (WRVU 19.55) performed by Bobby Loja MD at [facility] OR PRO INSERT INTRA-AORTIC BALLOON ASST DEVICE PERCUTANEOUS N/A 06/13/2024 @INSERTION OF IABP,PERCUTANEOUS (WRVU 4.84) performed by Nuha Shen MD at [facility] CATH LABS PRO UNLISTED CARDIAC SURG PROCEDURE N/A 06/14/2024 EXPLORATION AND OVERSEW ATRIAL APPENDAGE (WRVU 5.94) performed by Bobby Loja MD at [facility] [place] Prior To Admission Medications Medications [...] remote melanoma, and smoker who presented to [facility] last night via EMS after developing acute, severe chest pain while watching TV. Patient was ruled in for STEMI, given TNK, ASA, plavix, heparin gtt, and sent to [facility] for coronary angiography. LHC demonstrated severely calcified left coronary system with notable LCx 75/80% lesions and PIGMENT GRINDER OM1 with ISR with collateral retrograde filling, [...] Hospital Course: George Mehta was admitted to [facility] on 06/02/2024 via the CardiologyService with an anterior STEMI after receiving lytics at OSH. He was brought to the senior laboratory technician which showed severely calcified left coronary system with notable LCx 75/80% lesions and PIGMENT GRINDER OM1 with ISR with collateral retrograde filling, [...] juice or regular (not diet) soda 6 Frontenacavers small box of raisins 4 glucose tablets [...] 2 tablespoons of dried fruit. Milk and qe-rkbue-lkfcv yogurt have 15 grams of carbs in a serving. A serving is 1 cup of milk or 3/4 cup (6 oz) of pd-demqz-rmrmg yogurt. Starchy vegetables have 15 grams of carbs in a serving. A serving is ?? cup of mashed potatoes or sweet potato; 1 cup winter squash; ?? of a small baked potato; ?? cup of cooked beans; or ?? cup cooked corn or green peas. Learn how much carbs to eat each day and at each meal. A dietitian or certified medication technician can teach you how to keep track [...] Bobby Loja and/or the Cardiac Surgery Physician Modern And Contemporary Art Curator Team may be reached at . Weight: [...] Dr. Bobby Loja. You may use a Cogswell Track or treadmill but avoid any pulling [...] friends, go to a movie, go to orthodoxy, etc. Heavy activities: No hunting, skiing, jogging, snow shoveling, snowmobiling, lawn mowing, swimming,golf or tennis until after your return appointment with the surgeon. Do not ride motorcycles, [employer]'stractors or horses. Avoid the use of a [...] should resume a low fat, low cholesterol, [place] [employer] Diet/Diabetic diet. Driving: No driving [...] while being managed by your PCP and/or Advertising Representative. For future medication refills, please refer to your PCP and/or Advertising Representative after your discharge from our service. Thank you REMOVE CHEST TUBE SUTURES ON OR AFTER 06/24/2024 Home oxygen therapy: N/A Follow up appointments: You should follow up with your PCP, Mauro Berumen MD, in 1-2 weeks. You should follow up with your Advertising Representative, Dr CARDENAS. You have an appointment with your Cardiac Surgeon, Dr. Bobby Loja, in 4 wks. Cardiac Rehabilitation: George Mehta was seen today regarding participation in the outpatient Phase 2 Cardiac Rehabilitation at [facility]. The patient agrees to a referral to this program. The referral will be sent at discharge and the patient should be contacted by the program within 1-2 weeks from discharge. Future Appointments and Orders Future Orders Complete By Expires Referral to Cardiac Rehab [[id number] Custom] As directed Process Instructions: If no progress note charted, please enter Clinical details in comments. Scheduling Instructions: Questions: My question or request is: s/p CABG- cardiac rehab at [facility] Referral to Home Health [REF34 Custom] As directed Process Instructions: If no progress note charted, please enter Clinical details in comments. Scheduling Instructions: Comments: Please evaluate George Mehta for admission to Home Health. [address] [facility] [address] (home) Date of : 1955 Inpatient DOCUMENTATION FOR VNA SERVICES (INCLUDING THOSE PATIENTS WITH MEDICARE COVERAGE REQUIRINGHOME VNA SERVICES AND/OR HOSPICE SERVICES) PATIENT'S LOCATION: George Mehta [address] [place] [address] [address] [facility] [address] (home) Telephone Information: English Tutor's Name: self In discussion with the attending physician, it is certified that this patient is under their care and that they, or a Nurse Practitioner, or Physician Modern And Contemporary Art Curator who is working directly with them, hada [...] for services as follows: HOME HEALTH AGENCY: [facility] [address] [place] [id number] RN orders: Cardiopulmonary assessment, incisional assessment, assess [...] issues please call the Cardiology Office at [phone] FOR MEDICARE ONLY: (please delete this section [...] care: As above. Signed: KEILA HANLEY APRN [facility] Section of Cardiac Surgery [facility] [address] FAX [phone] Date: 06/21/2024 CC: MD Antonino Tinajero Joshua R, PA [address] [place] [address] [place] [address] documented in this encounter Discharge Instructions * [...] 2 tablespoons of dried fruit. Milk and mt-ohidu-posma yogurt have 15 grams of carbs in a serving. A serving is 1 cup of milk or 3/4 cup (6 oz) of tp-htkxk-yskqf yogurt. Starchy vegetables have 15 grams of carbs in a serving. A serving is ?? cup of mashed potatoes or sweet potato; 1 cup winter squash; ?? of a small baked potato; ?? cup of cooked beans; or ?? cup cooked corn or green peas. Learn how much carbs to eat each day and at each meal. A dietitian or certified medication technician can teach you how to keep track [...] Bobby Loja and/or the Cardiac Surgery Physician Modern And Contemporary Art Curator Team may be reached at . Weight: [...] Dr. Bobby Loja. You may use a Cogswell Track or treadmill but avoid any pulling [...] friends, go to a movie, go to orthodoxy, etc. Heavy activities: No hunting, skiing, jogging, snow shoveling, snowmobiling, lawn mowing, swimming,golf or tennis until after your return appointment with the surgeon. Do not ride motorcycles, [employer]'stractors or horses. Avoid the use of a [...] should resume a low fat, low cholesterol, [place] Heart Association Diet/Diabetic diet. Driving: No driving [...] while being managed by your PCP and/or Advertising Representative. For future medication refills, please refer to your PCP and/or Advertising Representative after your discharge from our service. Thank you REMOVE CHEST TUBE SUTURES ON OR AFTER 06/24/2024 Home oxygen therapy: N/A Follow up appointments: You should follow up with your PCP, Mauro Berumen MD, in 1-2 weeks. You should follow up with your Advertising Representative, Dr CARDENAS. You have an appointment with your Cardiac Surgeon, Dr. Bobby Loja, in 4 wks. Cardiac Rehabilitation: George Mehta was seen today regarding participation in the outpatient Phase 2 Cardiac Rehabilitation at [facility]. The patient agrees to a referral to [...] MARIALUISA clipping. 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 [...] Your Long-acting insulin is called Trefaizanba Take 30 units of long acting insulin [...] juice or regular (not diet) soda 6 Frontenacavers small box of raisins 4 glucose tablets [...] 2 tablespoons of dried fruit. Milk and xp-maegy-zpsyj yogurt have 15 grams of carbs in a serving. A serving is 1 cup of milk or 3/4 cup (6 oz) of ho-jyfqa-vdrdw yogurt. Starchy vegetables have 15 grams of carbs in a serving. A serving is ?? cup of mashed potatoes or sweet potato; 1 cup winter squash; ?? of a small baked potato; ?? cup of cooked beans; or ?? cup cooked corn or green peas. Learn how much carbs to eat each day and at each meal. A dietitian or certified medication technician can teach you how to keep track [...] cheese, and peanut butter. Alejandra Baumann APRN [facility] Endocrinology Diabetes Management Pager [phone] Weekends please page [phone] * Eric Packer PA - 06/20/2024 7:44 AM EST Cardiac Surgery Progress Note George Mehta is a 69 y.o. male with a history of CAD s/p multiple PCI who presented with an anterior STEMI and was given lytics. Cath showed MV CAD without culprit vessel. He is now 6 Days Post-OpCABGx3 and MARIALUISA clipping. 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 [...] 90 Pt is followed by heart failure crown blocker at [facility] #IDDM2 DM team following Lantus, SSI Carb controlled diet #Active smoker Duoneb prn Dispo: Floor, full code, home when ready Discussed with attending surgeon on rounds this morning. 06/20/2024 Between the hours of 1800 - 0600 and on the weekends please page [phone]. * Alejandra Baumann, JOSÉ ANTONIO - 06/20/2024 7:21 AM EST Follow Up Diabetes Consult Patient Interview Blood glucose values and insulin use reviewed. senior systems programmer BG to 59 despite decrease in glargine [...] MARIALUISA clipping. 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 senior systems programmer BG to 59 despite decrease in glargine [...] based on ISF 20 Alejandra Baumann APRN [facility] Endocrinology Diabetes Management Pager [phone] Weekends please page [phone] Insulin Discharge Instructions Preliminary Diabetes Discharge Instructions [...] 2 tablespoons of dried fruit. Milk and eo-cevna-mnkvl yogurt have 15 grams of carbs in a serving. A serving is 1 cup of milk or 3/4 cup (6 oz) of yf-xkccw-bzirn yogurt. Starchy vegetables have 15 grams of carbs in a serving. A serving is ?? cup of mashed potatoes or sweet potato; 1 cup winter squash; ?? of a small baked potato; ?? cup of cooked beans; or ?? cup cooked corn or green peas. Learn how much carbs to eat each day and at each meal. A dietitian or certified medication technician can teach you how to keep track [...] MARIALUISA clipping. 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 [...] 90 Pt is followed by heart failure crown blocker at [facility] Tx to floor #IDDM2 DM team following pre-op Lantus, SSI Carb controlled diet #Active smoker Duoneb prn Dispo: Floor status, full code Discussed with attending surgeon on rounds this morning. Jeffy Hood MD 06/19/2024 Between the hours of 1800 - 0600 and on the weekends please page [phone]. * Alejandra Baumann, ADVERTISING REPRESENTATIVE - 06/19/2024 7:09 AM EST Follow Up Diabetes Consult Patient Interview Blood glucose values and insulin use reviewed. Jardiance added back yesterday, early childhood services coordinator low BGto 51. Glargine reduced to 45 [...] MARIALUISA clipping. 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 Jardiance added back yesterday. senior systems programmer low BG to 51. Glargine reduced to [...] 2 tablespoons of dried fruit. Milk and ao-cjthv-nhfzg yogurt have 15 grams of carbs in a serving. A serving is 1 cup of milk or 3/4 cup (6 oz) of yk-tvxep-jstyi yogurt. Starchy vegetables have 15 grams of carbs in a serving. A serving is ?? cup of mashed potatoes or sweet potato; 1 cup winter squash; ?? of a small baked potato; ?? cup of cooked beans; or ?? cup cooked corn or green peas. Learn how much carbs to eat each day and at each meal. A dietitian or certified medication technician can teach you how to keep track [...] cheese, and peanut butter. Alejandra Baumann APRN [facility] Endocrinology Diabetes Management Pager [phone] Weekends please page [phone] EL * Hilda Resendez PTA - 06/18/2024 9:19 AM EST Physical Therapy Note 2 Patient profile: George Mehta is a 69 y.o. male with a history of CAD s/p multiple PCI who presented with an anterior STEMI and was given lytics. Cath showed MV CAD without culprit vessel. He is now 1 Day Post-Op CABGx3 and MARIALUISA clipping. 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 Interval History: Per last cardiac surgery note on 06/18/2024 Cr improved 1.4 on lasix 40 iv bid -1.5L, made 2.5L urine Coreg, entresto restarted Floor status Social History: Pt lives with his in a 1 level apartment with no steps to enter. 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 He drives. He sleeps in a recliner at baseline. Precautions/Special Considerations: Sternal precautions, PIV, at risk to fall, PPM Mobility and Positioning Recommendations: Pt to utilize no AD, supervision for ambulation and transfers w/ staff radiation therapist as able. Please encourage up to chair [...] least restrictive device Time IN / OUT: 7603-1127 Total Time: 11 minutes; TEF 1 Hilda Resendez PTA Pager: [phone] Physical Therapy Inpatient Rehabilitation Department * Keila Hanley, ADVERTISING REPRESENTATIVE - 06/18/2024 8:48 AM EST Cardiac Surgery Progress Note George Mehta is a 69 y.o. male with a history of CAD s/p multiple PCI who presented with an anterior STEMI and was given lytics. Cath showed MV CAD without culprit vessel. He is now 4 Days Post-OpCABGx3 and MARIALUISA clipping. 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 [...] 90 Pt is followed by heart failure crown blocker at [facility], will get name for f/up appt Tx to floor #IDDM2 DM team following pre-op Lantus, SSI Carb controlled diet ? Restarting jardiance #Active smoker Duoneb prn Dispo: CVCC, Full code, tx to floor Discussed with attending surgeon on rounds this morning. KEILA HANLEY, ADVERTISING REPRESENTATIVE 06/18/2024 Between the hours of 1800 - 0600 and on the weekends please page [phone]. * Alejandra Baumann, ADVERTISING REPRESENTATIVE - 06/17/2024 3:29 PM EST Follow Up [...] MARIALUISA clipping. 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 [...] based on ISF 20 Alejandra Baumann APRN [facility] Endocrinology Diabetes Management Pager [phone] Weekends please page [phone] 35 minutes were spent over the course of the day with this patient encounter including time spent in chart review and relevant lab result review, assessment of and counseling with the patient on diabetes and treatment plan, reviewing all glucose and insulin data, and coordination with the consulting service. * Keila HanleyJOSÉ ANTONIO - 06/17/2024 8:22 AM EST Cardiac Surgery Progress Note George Mehta is a 69 y.o. male with a history of CAD s/p multiple PCI who presented with an anterior STEMI and was given lytics. Cath showed MV CAD without culprit vessel. He is now 3 Days Post-OpCABGx3 and MARIALUISA clipping. 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 [...] [P.O.:870; I.V.:20] Out: 1428 [Urine:1365] Med marcos 30/ Admit weight: 102 kg Current weight: Weight: [...] 0600 and on the weekends please page [phone]. * Raymond Carlton MD - 06/16/2024 1:11 PM EST CARDIAC CRITICAL CARE ATTENDING STAFF PROGRESS NOTE Patient seen and examined. George Mehta is a 69 y.o. male with: Active Hospital Problems Diagnosis STEMI (ST elevation myocardial infarction) Cardiac resynchronization therapy defibrillator (HANDLE MACHINE OPERATOR-D) - Medtronic Amplia Cardiomyopathy, ischemic Acute on chronic heart failure with reduced ejection fraction (HFrEF, <= 40%) Coronary artery disease involving confederated coos coronary artery of confederated coos heart without angina pectoris Type 2 diabetes [...] encouragement provided Patient screened for f/u and ghost writer met pt at bedside. Pt states [...] unless consulted in the interim. RICHA Simmons [employer] * Octaviano Horvath PA - 06/16/2024 8:07 AM EST Cardiac Surgery Progress Note George Mehta is a 69 y.o. male with a history of CAD s/p multiple PCI who presented with an anterior STEMI and was given lytics. Cath showed MV CAD without culprit vessel. He is now 2 Days Post-OpCABGx3 and MARIALUISA clipping. 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 [...] 0600 and on the weekends please page [phone]. * Jono Fernandez, PT - 06/15/2024 4:09 PM EST Physical Therapy Evaluation Patient profile: George Mehta is a 69 y.o. male with a history of CAD s/p multiple PCI who presented with an anterior STEMI and was given lytics. Cath showed MV CAD without culprit vessel. He is now 1 Day Post-Op CABGx3 and MARIALUISA clipping. 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 24h Events: From OR on Dobutamine IABP removed Bedrest ended ~2100, sedation weaned Extubated ~0200 Dobutamine weaned to 1 this morning, CI 2.6, shut off and repeat CI 2.4 Social History: Pt lives with his in a 1 level apartment with no steps to enter. 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 He drives. He sleeps [...] outlined inthis evaluation. JONO FERNANDEZ, PT Pager: [phone] Physical Therapy Inpatient Rehabilitation Department Time IN / OUT: 6746-6541 Total Time: 33 (eval) minutes * Alejandra Baumann APRN - 06/15/2024 11:39 AM EST Follow Up Diabetes Consult Patient Interview Blood glucose values and insulin use reviewed. Pt remains on an insulin drip today following [id number] MARIALUISA clipping. George continues to complain of [...] MARIALUISA clipping. 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 [...] based on ISF 20 Alejandra Baumann APRN [facility] Endocrinology Diabetes Management Pager [phone] Weekends please page [phone] 50 minutes were spent over the course [...] elevation myocardial infarction) Cardiac resynchronization therapy defibrillator (HANDLE MACHINE OPERATOR-D) - Medtronic Amplia Cardiomyopathy, ischemic Acute on chronic heart failure with reduced ejection fraction (HFrEF, <= 40%) Coronary artery disease involving confederated coos coronary artery of confederated coos heart without angina pectoris Type 2 diabetes [...] ??C (99.7 ??F)] Heart Rate: [80-107] Resp: [06-27] BP: (115)/(65) SpO2: [92 %-100 %] Heart Rate from SpO2: [81 bpm-131 bpm] Physical Exam Alert, pleasant, comfortable Non-labored respirations. Rales at bases Regular paced rhythm. 2+ pitting edema with pigmented changes of vascular insufficiency Cardiac Critical Care Medicine Staff Progress Note 69 y.o. male with h/o DM, CAD with prior PCI, HANDLE MACHINE OPERATOR-D who presented with crushing chest pain, found to have multivessel disease. Balloon pump placed prior to the OR for stability. Patient now s/p CABG x3, MARIALUISA excision Patient arrived to the ICU intubated, paced at 80 bpm. PE Temp: [34.9 ??C (94.8 ??F)-37 ??C (98.6 ??F)] Heart Rate: [61-97] Resp: [07-27] BP: -- SpO2: [90 %-100 %] Heart [...] interventions and documentation on the unit. * Bass, HENOK Gardiner - 06/15/2024 8:48 AM EST Cardiac Surgery Progress Note George Mehta is a 69 y.o. male with a history of CAD s/p multiple PCI who presented with an anterior STEMI and was given lytics. Cath showed MV CAD without culprit vessel. He is now 1 Day Post-Op CABGx3 and MARIALUISA clipping. 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 [...] sternotomy dressing CDI, saphenectomy dressing CDi Tubes/Lines/Drains: Say, SUNNY, A-line, Mediastinal marcos and bilateral pleural CTs, Barr, RAYMOND Assessment/Plan: 69 y.o. male 1 Day Post-Op [...] 0600 and on the weekends please page [phone]. * Yoli Donaldson, [facility] - 06/15/2024 5:35 AM EST AMV Protocol: [...] with h/o DM, CAD with prior PCI, HANDLE MACHINE OPERATOR-D who presented with crushing chest pain, found [...] with h/o DM, CAD with prior PCI, HANDLE MACHINE OPERATOR-D who presented with crushing chest pain, found [...] 0600 and on the weekends please page [phone]. * Chloé Cortez - 06/14/2024 9:36 AM EST Nutrition Services Note - Low Nutrition Acuity George eMhta is a 69 y.o. male Reason for [...] unless consulted in the interim. Chloé Cortez Health Concierge * Jim Benites MD - 06/13/2024 1:15 [...] - Mildly dilated left ventricle size with mwhxgocx-df-cddesiyg decreased LV systolic function. LV ejection fraction [...] Cardiology Attending 06/13/2024 1:15 PM * Yoli Pride DT - 06/13/2024 7:44 AM EST Nutrition [...] oz) Weight loss: not clinically significant Yoli Pride DTR * Haja Byrnes MD - 06/12/2024 [...] elevation myocardial infarction) Cardiac resynchronization therapy defibrillator (HANDLE MACHINE OPERATOR-D) - Medtronic Amplia Cardiomyopathy, ischemic Acute on chronic heart failure with reduced ejection fraction (HFrEF, <= 40%) Coronary artery disease involving confederated coos coronary artery of confederated coos heart without angina pectoris Type 2 diabetes [...] PCP: Mauro Berumen MD PCP phone number: [phone] Date of Admission: 06/02/2024 ( Hospital Day 10 days ) Attending:Ethel Carrillo MD ID: 69 y.o. male with a h/o DM type 2, HTN, HLD, current smoker (2-3 cigarettes/day), HFrEF with anICD for low EF (~30%), and CAD with prior AR x3 with JENNA placed in [place], Melanoma, PAD, presented to [facility] with 1 hour of retrosternal CP (05/13) while watching TV, found to have STEMI. Active Problems: Active Hospital Problems Diagnosis STEMI (ST elevation myocardial infarction) Cardiac resynchronization therapy defibrillator (HANDLE MACHINE OPERATOR-D) - Medtronic Amplia Cardiomyopathy, ischemic Acute on chronic heart failure with reduced ejection fraction (HFrEF, <= 40%) Coronary artery disease involving confederated coos coronary artery of confed[place] coos heart without angina pectoris Type 2 diabetes [...] symptoms 06/03/24 0400 Labs: Recent Labs 06/12/24 0303 06/11/24 0213 06/10/24 0155 06/09/24 0212 06/08/24 0321 WBC 9.69* 9.91* 9.00 9.80* 9.92* HGB 15.2 15.3 14.9 15.5 15.1 HCT 46.6 47.5 46.4 47.4 46.7 PLATELET 194 184 191 205 203 MCV 92.3 92.6 92.2 91.5 91.7 Recent Labs 06/12/24 0303 06/11/24 0213 06/10/24 0155 06/09/24 0825 06/09/24 02106/08/24 0321 NA 138 134* 138 -- 136 [...] in the last 7068 hours. Invalid input(s): [id number] Recent Labs 06/12/24 0425 06/11/24 2356 06/11/24 2025 06/11/24 1624 06/11/24 1108 06/11/24 0748 06/11/24 0357 06/11/24 0050 06/10/24 1922 06/10/24 1735 06/10/24 1125 06/10/24 0746 POCGLU 132 135 210* 81 233* 184 132 144 236* 123 216* 206* Heme No results for input(s): LDH, HAPTOGLOBIN, URICACID in the last 168 hours. ABG (Arterial Blood Gas) No results found for: PHART, PO2ART, OZM8CRI, RVL9PWZ Microbiology: Microbiology Results (Last 30 days) No results found for the last 720 hours. Imaging: Results for orders placed or performed during the hospital encounter of 06/02/24 XR Chest One View (Exam End: 06/03/2024 2:41 AM) Result Value WORKSTATION ID [id number] Impression No radiographically evident acute cardiopulmonary process. Thank you for letting us participate in the care of this patient. If you are a health care provider and have any questions regarding this report, please contact the number below. For patients who have questions please contact the health respiratory care instructor that requested your imaging first. Electronically signed by: Corazon Mauro MD, [facility] ([phone]), at 06/03/2024 3:06 AM MRI Cardiac Morphology Function wwo Contrast (Exam End: 06/07/2024 1:10 PM) Result Value WORKSTATION ID [id number] Impression - Findings consistent with an ischemic [...] - Mildly dilated left ventricle size with xirubvpy-pg-vppoyaay decreased LV systolic function. LV ejection fraction [...] who have questions please contact the health respiratory care instructor that requested your imaging first. Electronically signed by: Kriss Alonzo MD, [facility] ([phone]), at 06/07/2024 2:[address] Chest wo Contrast (Generic) (Exam End: 06/03/2024 4:33 PM) Result Value WORKSTATION ID [id number] Impression Cardiomegaly. Biventricular ICD leads in place. Thank you for letting us participate in the care of this patient. If you are a health care provider and have any questions regarding this report, please contact the number below. For patients who have questions please contact the health respiratory care instructor that requested your imaging first. Electronically signed by: Stuart Aponte MD, [facility] ([phone]), at 06/03/2024 4:47 PM XR Chest PA & Lateral (Generic) (Exam End: 06/07/2024 7:03 AM) Result Value WORKSTATION ID [id number] Impression Biventricular ICD leads intact and in [...] who have questions please contact the health respiratory care instructor that requested your imaging first. Electronically signed by: Stuart Aponte MD, [facility] ([phone]), at 06/07/2024 10:45 AM TTE: Limited echo performed by fellow pediatric oncology nurse to assess LV function. Left ventricle is [...] Patient stable, asymptomatic. Plan to go to senior laboratory technician for balloon pump tomorrow, then [...] CODE Dain Colón MD Cardiology, M1-S2, Pager #[phone] 06/12/24 Associated attestation - Ethel Carrillo MD [...] Ethel Carrillo MD Cardiovascular Medicine Personal Pager [phone] 06/12/2024 9:12 PM * Alejandra Baumann, ADVERTISING REPRESENTATIVE - 06/11/2024 4:21 PM EST Images from [...] too aggressive, suggest ICR 1:6 (rule of [id number] = 6.25). George is up and walking [...] ac, metformin 1000mg BID Alejandra Baumann APRN [facility] Endocrinology Diabetes Management Pager [phone] Weekends please page [phone] 35 minutes were spent over the course [...] PCP: Mauro Berumen MD PCP phone number: [phone] Date of Admission: 06/02/2024 ( Hospital Day 9 days ) Attending:Melida Valdes MD ID: 69 y.o. male with a h/o DM type 2, HTN, HLD, current smoker (2-3 cigarettes/day), HFrEF with anICD for low EF (~30%), and CAD with prior AR x3 with JENNA placed in [place], Melanoma, PAD, presented to [facility] with 1 hour of retrosternal CP (05/13) while watching TV, found to have STEMI. Active Problems: Active Hospital Problems Diagnosis STEMI (ST elevation myocardial infarction) Cardiac resynchronization therapy defibrillator (HANDLE MACHINE OPERATOR-D) - Medtronic Amplia Cardiomyopathy, ischemic Acute on chronic heart failure with reduced ejection fraction (HFrEF, <= 40%) Coronary artery disease involving confederated coos coronary artery of confederated coos heart without angina pectoris Type 2 diabetes [...] 93.5 kg (206 lb 3.2 oz) 06/09/24 043 94 kg (207 lb 3.2 oz) 06/08/24 0346 94 kg (207 lb 3.2 oz) 06/07/24417 94.3 kg (207 lb 14.3 oz) 06/06/24 [...] 0-->no symptoms 06/03/24 040 Labs: Recent Labs 06/11/24 0213 06/10/24 0155 [...] in the last 7068 hours. Invalid input(s): [id number] Recent Labs 06/11/24 0357 06/11/24 0050 06/10/24 1922 06/10/24 1735 06/10/24 1125 06/10/24 0746 06/10/24 0423 06/10/24 0005 06/09/24 2036 06/09/24 1727 06/09/24 1152 06/09/24 0810 POCGLU 132 144 236* 123 216* 206* 154 125 197 174 211* 209* Heme No results for input(s): LDH, HAPTOGLOBIN, URICACID in the last 168 hours. ABG (Arterial Blood Gas) No results found for: PHART, PO2ART, QRM6MYL, SON3ATE Microbiology: Microbiology Results (Last 30 days) No results found for the last 720 hours. Imaging: Results for orders placed or performed during the hospital encounter of 06/02/24 XR Chest One View (Exam End: 06/03/2024 2:41 AM) Result Value WORKSTATION ID [id number] Impression No radiographically evident acute cardiopulmonary process. Thank you for letting us participate in the care of this patient. If you are a health care provider and have any questions regarding this report, please contact the number below. For patients who have questions please contact the health respiratory care instructor that requested your imaging first. Electronically signed by: Corazon Mauro MD, [facility] ([phone]), at 06/03/2024 3:06 AM MRI Cardiac Morphology Function wwo Contrast (Exam End: 06/07/2024 1:10 PM) Result Value WORKSTATION ID [id number] Impression - Findings consistent with an ischemic [...] - Mildly dilated left ventricle size with pkochbne-pm-zzvluiie decreased LV systolic function. LV ejection fraction [...] who have questions please contact the health respiratory care instructor that requested your imaging first. Electronically signed by: Kriss Alonzo MD, [facility] ([phone]), at 06/07/2024 2:[address] Chest wo Contrast (Generic) (Exam End: 06/03/2024 4:33 PM) Result Value WORKSTATION ID [id number] Impression Cardiomegaly. Biventricular ICD leads in place. Thank you for letting us participate in the care of this patient. If you are a health care provider and have any questions regarding this report, please contact the number below. For patients who have questions please contact the health respiratory care instructor that requested your imaging first. Electronically signed by: Stuart Aponte MD, [facility] ([phone]), at 06/03/2024 4:47 PM XR Chest PA & Lateral (Generic) (Exam End: 06/07/2024 7:03 AM) Result Value WORKSTATION ID [id number] Impression Biventricular ICD leads intact and in [...] who have questions please contact the health respiratory care instructor that requested your imaging first. Electronically signed by: Stuart Aponte MD, [facility] ([phone]), at 06/07/2024 10:45 AM TTE: Limited echo performed by fellow pediatric oncology nurse to assess LV function. Left ventricle is [...] Continuous Infusions: heparin (porcine) infusion 1,400 Units/hr (06/10/249) PRN Meds:.insulin lispro, glucose 40% oral geL [...] plan on placing this and transfer to [facility], likely Friday. #ASCVD [...] CODE Dain Colón MD Cardiology, M1-S2, Pager #[phone] 06/11/24 Associated attestation - Ethel Carrlilo MD - 06/11/2024 9:37 PM EST CARDIOLOGY [...] Ethel Carrillo MD Cardiovascular Medicine Personal Pager [phone] 06/11/2024 9:35 PM * Hilary Belle - 06/10/2024 12:39 PM EST Nutrition Services Note George Mehta is a 69 y.o. male Reason for intervention: hospital day 9 Nutrition Plan: Continue diet order: 60/60/75 CHO Level 2 Encourage good PO Lasix and Insulin noted Monitor weight Patient scheduled for a hospital day 9 nutrition evaluation. Direct Sales Professional attempted to meet with pt at [...] unless consulted in the interim. Hilary Belle [employer] * Mariia Montero RN - 06/10/2024 12:23 PM EST I have met with the patient to: discuss discharge planning needs. provide the [facility] Office of Care Management letter from the [employer] Worker pertaining to rehab referrals. provide a letter describing our affiliations within the [facility] and educate about their right to choose where referrals are sent. provide a list of Home Health Agencies / Durable Medical Equipment vendors which serve their preferred geographic area. provided patient with [facility] Star Quality Rating handout. They have requested referrals to: [facility]. [address] [place] [address] RN / PT Anticipated d/c date: 06/20/24 Note routed to a [employer] Regrooving Machine Operator who will communicate referrals to facilities and provide any required information. * Dain Colón MD - 06/10/2024 7:17 AM EST Images from the original note were not included. . Cardiology Progress Note Patient info: Name: George Mehta : 1955 PCP: Mauro Berumen MD PCP phone number: [phone] Date of Admission: 06/02/2024 ( Hospital Day 8 days ) Attending:Melida Valdes MD ID: 69 y.o. male with a h/o DM type 2, HTN, HLD, current smoker (2-3 cigarettes/day), HFrEF with anICD for low EF (~30%), and CAD with prior AR x3 with JENNA placed in [place], Melanoma, PAD, presented to [facility] with 1 hour of retrosternal CP (05/13) while watching TV, found to have STEMI. Active Problems: Active Hospital Problems Diagnosis STEMI (ST elevation myocardial infarction) Cardiac resynchronization therapy defibrillator (HANDLE MACHINE OPERATOR-D) - Medtronic Amplia Cardiomyopathy, ischemic Acute on chronic heart failure with reduced ejection fraction (HFrEF, <= 40%) Coronary artery disease involving confederated coos coronary artery of confederated coos heart without angina pectoris Type 2 diabetes [...] Objective: Intake/Output Summary (Last 24 hours) at 06/10/2024716 Last data filed at 06/10/2024 0419 Gross [...] in the last 7068 hours. Invalid input(s): [id number] Recent Labs 06/10/24 0423 06/10/24 0005 06/09/24 2036 06/09/24 1727 06/09/24 1152 06/09/24 0810 06/09/24 0440 06/09/24 0034 06/08/24 2027 06/08/24 1616 06/08/24 1235 06/08/24 0810 POCGLU 154 125 197 174 211* 209* 131 186 176 159 226* 190 Heme No results for input(s): LDH, HAPTOGLOBIN, URICACID in the last 168 hours. ABG (Arterial Blood Gas) No results found for: PHART, PO2ART, JEX2ZPP, LZH7IBY Microbiology: Microbiology Results (Last 30 days) No results found for the last 720 hours. Imaging: Results for orders placed or performed during the hospital encounter of 06/02/24 XR Chest One View (Exam End: 06/03/2024 2:41 AM) Result Value WORKSTATION ID [id number] Impression No radiographically evident acute cardiopulmonary process. Thank you for letting us participate in the care of this patient. If you are a health care provider and have any questions regarding this report, please contact the number below. For patients who have questions please contact the health respiratory care instructor that requested your imaging first. Electronically signed by: Corazon Mauro MD, [facility] ([phone]), at 06/03/2024 3:06 AM MRI Cardiac Morphology Function wwo Contrast (Exam End: 06/07/2024 1:10 PM) Result Value WORKSTATION ID [id number] Impression - Findings consistent with an ischemic [...] - Mildly dilated left ventricle size with bcizxrlo-fe-mzmwsakp decreased LV systolic function. LV ejection fraction [...] who have questions please contact the health respiratory care instructor that requested your imaging first. Electronically signed by: Kriss Alonzo MD, [facility] ([phone]), at 06/07/2024 2:[address] Chest wo Contrast (Generic) (Exam End: 06/03/2024 4:33 PM) Result Value WORKSTATION ID [id number] Impression Cardiomegaly. Biventricular ICD leads in place. Thank you for letting us participate in the care of this patient. If you are a health care provider and have any questions regarding this report, please contact the number below. For patients who have questions please contact the health respiratory care instructor that requested your imaging first. Electronically signed by: Stuart Aponte MD, [facility] ([phone]), at 06/03/2024 4:47 PM XR Chest PA & Lateral (Generic) (Exam End: 06/07/2024 7:03 AM) Result Value WORKSTATION ID [id number] Impression Biventricular ICD leads intact and in [...] who have questions please contact the health respiratory care instructor that requested your imaging first. Electronically signed by: Stuart Aponte MD, [facility] ([phone]), at 06/07/2024 10:45 AM TTE: Limited echo performed by fellow pediatric oncology nurse to assess LV function. Left ventricle is [...] CODE Dain Colón MD Cardiology, M1-S2, Pager #[phone] 06/10/24 Associated attestation - Melida Valdes MD [...] a lytic and brought directly to the Plumbing Assembler Installer. Cardiac catheterization demonstrated multivessel disease with severe [...] CABG on Friday with balloon pump insertion Fridaygiven low EF. 06/10/2024: Clinically stable, plan for CABG on Friday with balloon pump on Friday. Discussed with the patient who is agreeable Melida Valdes MD Staff Advertising Representative * Cherelle Fregoso, JOSÉ ANTONIO - 06/09/2024 [...] PCP: Mauro Berumen MD PCP phone number: [phone] Date of Admission: 06/02/2024 ( Hospital Day 7 days ) Attending:Melida Valdes MD ID: 69 y.o. male with a h/o DM type 2, HTN, HLD, current smoker (2-3 cigarettes/day), HFrEF with anICD for low EF (~30%), and CAD with prior AR x3 with JENNA placed in [place], Melanoma, PAD, presented to [facility] with 1 hour of retrosternal CP (05/13) while watching TV, found to have STEMI. Active Problems: Active Hospital Problems Diagnosis STEMI (ST elevation myocardial infarction) Acute on chronic heart failure with reduced ejection fraction (HFrEF, <= 40%) Coronary artery disease involving confederated coos coronary artery of confederated coos heart without angina pectoris Type 2 diabetes [...] oz) 06/03/24 0636 97.1 kg (214 lb) 10/30/24 2259 102 kg (224 lb 13.9 oz) [...] 0-->no symptoms 06/03/24399 Infiltration 0-->no symptoms 06/03/24 0400 Labs: Recent [...] in the last 7068 hours. Invalid input(s): [id number] Recent Labs 06/09/24 0440 06/09/24 0034 06/08/24 2027 06/08/24 1616 06/08/24 1235 06/08/24 0810 06/08/24 0409 06/07/24 2357 06/07/24 2005 06/07/24 1631 06/07/24 1105 06/07/24 1103 POCGLU 131 186 176 159 226* 190 151 188 118 174 221* 250* Heme No results for input(s): LDH, HAPTOGLOBIN, URICACID in the last 168 hours. ABG (Arterial Blood Gas) No results found for: PHART, PO2ART, HCX2TSD, PBQ8BOS Microbiology: Microbiology Results (Last 30 days) No results found for the last 720 hours. Imaging: Results for orders placed or performed during the hospital encounter of 06/02/24 XR Chest One View (Exam End: 06/03/2024 2:41 AM) Result Value WORKSTATION ID [id number] Impression No radiographically evident acute cardiopulmonary process. Thank you for letting us participate in the care of this patient. If you are a health care provider and have any questions regarding this report, please contact the number below. For patients who have questions please contact the health respiratory care instructor that requested your imaging first. Electronically signed by: Corazon Mauro MD, [facility] ([phone]), at 06/03/2024 3:06 AM MRI Cardiac Morphology Function wwo Contrast (Exam End: 06/07/2024 1:10 PM) Result Value WORKSTATION ID [id number] Impression - Findings consistent with an ischemic [...] - Mildly dilated left ventricle size with iirgbvrw-hy-ecszmtcu decreased LV systolic function. LV ejection fraction [...] who have questions please contact the health respiratory care instructor that requested your imaging first. Electronically signed by: Kriss Alonzo MD, [facility] ([phone]), at 06/07/2024 2:[address] Chest wo Contrast (Generic) (Exam End: 06/03/2024 4:33 PM) Result Value WORKSTATION ID [id number] Impression Cardiomegaly. Biventricular ICD leads in place. Thank you for letting us participate in the care of this patient. If you are a health care provider and have any questions regarding this report, please contact the number below. For patients who have questions please contact the health respiratory care instructor that requested your imaging first. Electronically signed by: Stuart Aponte MD, [facility] ([phone]), at 06/03/2024 4:47 PM XR Chest PA & Lateral (Generic) (Exam End: 06/07/2024 7:03 AM) Result Value WORKSTATION ID [id number] Impression Biventricular ICD leads intact and in [...] who have questions please contact the health respiratory care instructor that requested your imaging first. Electronically signed by: Stuart Aponte MD, [facility] ([phone]), at 06/07/2024 10:45 AM TTE: Limited echo performed by fellow pediatric oncology nurse to assess LV function. Left ventricle is [...] Infusions: heparin (porcine) infusion 1,400 Units/hr (06/08/24 7659) PRN Meds:.glucose 40% oral geL OR dextrose [...] CODE Dain Colón MD Cardiology, M1-S2, Pager #[phone] 06/09/24 Associated attestation - Melida Valdes MD [...] a lytic and brought directly to the Plumbing Assembler Installer. Cardiac catheterization demonstrated multivessel disease with severe [...] with balloon pump insertion ven low EF. Melida Valdes MD Staff Advertising Representative * Alejandra Baumann, ADVERTISING REPRESENTATIVE - 06/08/2024 4:10 PM EST Images from [...] to optimize glucose control Alejandra Baumann APRN [facility] Endocrinology Diabetes Management Pager [phone] Weekends please page [phone] 35 minutes were spent over the course [...] PCP: Mauro Berumen MD PCP phone number: [phone] Date of Admission: 06/02/2024 ( Hospital Day 6 days ) Attending:Melida Valdes MD ID: 69 y.o. male with a h/o DM type 2, HTN, HLD, current smoker (2-3 cigarettes/day), HFrEF with anICD for low EF (~30%), and CAD with prior AR x3 with JENNA placed in [place], Melanoma, PAD, presented to [facility] with 1 hour of retrosternal CP (05/13) while watching TV, found to have STEMI. Active Problems: Active Hospital Problems Diagnosis STEMI (ST elevation myocardial infarction) Acute on chronic heart failure with reduced ejection fraction (HFrEF, <= 40%) Coronary artery disease involving confederated coos coronary artery of confederated coos heart without angina pectoris Type 2 diabetes [...] in the last 7068 hours. Invalid input(s): [id number] Recent Labs 06/08/24 0409 06/07/24 2357 06/07/24200406/07/24 1631 06/07/24 1105 06/07/24 1103 06/07/24 0745 06/07/24 0425 06/07/24 0008 06/06/24201706/06/24 1539 06/06/24 1339 POCGLU 151 188 118 174 221* 250* 175 127 182 143 147 317* Heme No results for input(s): LDH, HAPTOGLOBIN, URICACID in the last 168 hours. ABG (Arterial Blood Gas) No results found for: PHART, PO2ART, DAG8JKV, EZK6UVZ Microbiology: Microbiology Results (Last 30 days) No results found for the last 720 hours. Imaging: Results for orders placed or performed during the hospital encounter of 06/02/24 XR Chest One View (Exam End: 06/03/2024 2:41 AM) Result Value WORKSTATION ID [id number] Impression No radiographically evident acute cardiopulmonary process. Thank you for letting us participate in the care of this patient. If you are a health care provider and have any questions regarding this report, please contact the number below. For patients who have questions please contact the health respiratory care instructor that requested your imaging first. Electronically signed by: Corazon Mauro MD, [facility] ([phone]), at 06/03/2024 3:06 AM MRI Cardiac Morphology Function wwo Contrast (Exam End: 06/07/2024 1:10 PM) Result Value WORKSTATION ID [id number] Impression - Findings consistent with an ischemic [...] - Mildly dilated left ventricle size with siwhanmp-vg-jbjsrsps decreased LV systolic function. LV ejection fraction [...] who have questions please contact the health respiratory care instructor that requested your imaging first. Electronically signed by: Kriss Alonzo MD, [facility] ([phone]), at 06/07/2024 2:[address] Chest wo Contrast (Generic) (Exam End: 06/03/2024 4:33 PM) Result Value WORKSTATION ID [id number] Impression Cardiomegaly. Biventricular ICD leads in place. Thank you for letting us participate in the care of this patient. If you are a health care provider and have any questions regarding this report, please contact the number below. For patients who have questions please contact the health respiratory care instructor that requested your imaging first. Electronically signed by: Stuart Aponte MD, [facility] ([phone]), at 06/03/2024 4:47 PM XR Chest PA & Lateral (Generic) (Exam End: 06/07/2024 7:03 AM) Result Value WORKSTATION ID [id number] Impression Biventricular ICD leads intact and in [...] who have questions please contact the health respiratory care instructor that requested your imaging first. Electronically signed by: Stuart Aponte MD, [facility] ([phone]), at 06/07/2024 10:45 AM TTE: Limited echo performed by fellow pediatric oncology nurse to assess LV function. Left ventricle is [...] CODE Dain Colón MD Cardiology, M1-S2, Pager #[phone] 06/08/24 Associated attestation - Melida Valdes MD [...] a lytic and brought directly to the Plumbing Assembler Installer. Cardiac catheterization demonstrated multivessel disease with severe [...] Otherwise clinically stable Melida Valdes MD Staff Advertising Representative * Ross Manuel PA - 06/07/2024 12:00 PM EST Cardiac Electrophysiology CIED Interrogation/Programming Note Asked by MRI staff to evaluate and program Medtronic HANDLE MACHINE OPERATOR-D to allow for MR imaging. Patient Active Problem List Diagnosis ','STEMI (ST elevation myocardial infarction) Acute on chronic heart failure with reduced ejection fraction (HFrEF, <= 40%) Coronary artery disease involving confederated coos coronary artery of confederated coos heart without angina pectoris Type 2 diabetes mellitus Device Data: Medtronic Amplia MRI Quad HANDLE MACHINE OPERATOR-D [id number] #[id number] 06/16/2019 RA Medtronic 4076 CapSureFix Novus [id number] 06/16/2019 RV Medtronic 6935M [id number] 06/16/2019 LV Medtronic 4298 Attain Performa MRI [id number] 06/16/2019 DDD @ 50/130/130 Adaptive Bi-V and LV VF >188bpm ATP, 35j x6 FVT >188-222bpm burst 2, 35jx5 VT Battery longevity: 2.5yrs; charge time 4s P wave: 2.3mV R wave: >20.0mV Atrial impedance: 458 ohms RV impedance: 646 ohms LV impedance: 722 ohms Atrial threshold: 0.5V @ 0.4ms RV threshold: LV threshold: 1.75V @ 0.4ms AP 0.2% MEDICAL COORDINATOR PESTICIDE USE 97.7% AT/AF 0% Impression and Plan: 1. Interrogated device to determine suitability for MRI 2. Programmed to MRI safe mode - VOO @ 70 3. Scan performed 4. Programming restored to baseline settings 5. Reinterrogated to verify appropriate function and settings 6. Device follow up as previously scheduled Provider: HENOK Meyer EP Consult attending physician: Libby Barton MD EP Consult positional pager #[phone](EPMD) EP Device interrogation positional pager # [phone] * Dain Colón MD - 06/07/2024 7:09 AM EST Images from the original note were not included. . Cardiology Progress Note Patient info: Name: George Mehat : 1955 PCP: Mauro Berumen MD PCP phone number: [phone] Date of Admission: 06/02/2024 ( Hospital Day 5 days ) Attending:Melida Valdes MD ID: 69 y.o. male with a h/o DM type 2, HTN, HLD, current smoker (2-3 cigarettes/day), HFrEF with anICD for low EF (~30%), and CAD with prior AR x3 with JENNA placed in [place], Melanoma, PAD, presented to [facility] with 1 hour of retrosternal CP (05/13) while watching TV, found to have STEMI. Active Problems: Active Hospital Problems Diagnosis STEMI (ST elevation myocardial infarction) Acute on chronic heart failure with reduced ejection fraction (HFrEF, <= 40%) Coronary artery disease involving confederated coos coronary artery of confederated coos heart without angina pectoris Type 2 diabetes [...] symptoms 06/03/24399 Labs: Recent Labs 06/07/24 0241 06/06/243 06/05/244 06/04/2443706/03/24212 WBC 10.06* 9.81* 10.83* 11.45* 11.16* HGB 14.8 14.6 15.3 16.0 15.0 HCT 46.2 45.4 46.8 49.6* 47.4 PLATELET 202 199 219 222 217 MCV 92.0 92.5 92.3 92.7 93.1 Recent Labs 06/07/24 0241 06/06/24 1437 06/06/24 1017 06/06/24 0333 06/05/24 0904 06/05/24 0344 06/04/24 1041 06/04/24 0438 06/03/24212 NA 136 -- -- 136 -- 136 [...] in the last 7068 hours. Invalid input(s): [id number] Recent Labs 06/07/24 0425 06/07/24 0008 06/06/24 2018 06/06/24 1539 06/06/24 1339 06/06/24 1134 06/06/24 0757 06/06/24 0653 06/05/24 2231 06/05/24 1622 06/05/24 1134 06/05/24 0727 POCGLU 127 182 143 147 317* 264* 195 187 238* 205* 211* 166 Heme No results for input(s): LDH, HAPTOGLOBIN, URICACID in the last 168 hours. ABG (Arterial Blood Gas) No results found for: PHART, PO2ART, HET6CUB, UNQ2IBP Microbiology: Microbiology Results (Last 30 days) No results found for the last 720 hours. Imaging: Results for orders placed or performed during the hospital encounter of 06/02/24 XR Chest One View (Exam End: 06/03/2024 2:41 AM) Result Value WORKSTATION ID [id number] Impression No radiographically evident acute cardiopulmonary process. Thank you for letting us participate in the care of this patient. If you are a health care provider and have any questions regarding this report, please contact the number below. For patients who have questions please contact the health respiratory care instructor that requested your imaging first. Electronically signed by: Corazon Mauro MD, [facility] ([phone]), at 06/03/2024 3:[address] Chest wo Contrast (Generic) (Exam End: 06/03/2024 4:33 PM) Result Value WORKSTATION ID [id number] Impression Cardiomegaly. Biventricular ICD leads in place. Thank you for letting us participate in the care of this patient. If you are a health care provider and have any questions regarding this report, please contact the number below. For patients who have questions please contact the health respiratory care instructor that requested your imaging first. Electronically signed by: Stuart Aponte MD, [facility] ([phone]), at 06/03/2024 4:47 PM TTE: Limited echo performed by fellow pediatric oncology nurse to assess LV function. Left ventricle is [...] Dain Colón MD (PGY-1) Cardiology, M1-S2, Pager #[phone] 06/07/24 Associated attestation - Melida Valdes MD [...] a lytic and brought directly to the Plumbing Assembler Installer. Cardiac catheterization demonstrated multivessel disease with severe [...] for further guidance. Melida Valdes MD Staff Advertising Representative * Dain Colón MD - 06/06/2024 7:17 AM EST Images from the original note were not included. . Cardiology Progress Note Patient info: Name: George Mehta : 1955 PCP: Mauro Berumen MD PCP phone number: [phone] Date of Admission: 06/02/2024 ( Hospital Day 4 days ) Attending:Melida Valdes MD ID: 69 y.o. male with a h/o DM type 2, HTN, HLD, current smoker (2-3 cigarettes/day), HFrEF with anICD for low EF (~30%), and CAD with prior AR x3 with JENNA placed in [place], Melanoma, PAD, presented to [facility] with 1 hour of retrosternal CP (05/13) while watching TV, found to have STEMI. Active Problems: Active Hospital Problems Diagnosis STEMI (ST elevation myocardial infarction) Acute on chronic heart failure with reduced ejection fraction (HFrEF, <= 40%) Coronary artery disease involving confederated coos coronary artery of confederated coos heart without angina pectoris Type 2 diabetes [...] 0-->no symptoms 06/03/24399 Infiltration 0-->no symptoms 06/03/24 0400 Labs: Recent [...] in the last 7068 hours. Invalid input(s): [id number] Recent Labs 06/06/24 0653 06/05/24 2231 06/05/24 1622 06/05/24 1134 06/05/24 0727 06/04/24 1943 06/04/24 1526 06/04/24 1109 06/04/24 0711 06/03/24 2005 06/03/24 1748 06/03/24 1114 POCGLU 187 238* 205* 211* 166 175 154 188 182 136 191 166 Heme No results for input(s): LDH, HAPTOGLOBIN, URICACID in the last 168 hours. ABG (Arterial Blood Gas) No results found for: PHART, PO2ART, QTU1WHU, UXN5XSK Microbiology: Microbiology Results (Last 30 days) No results found for the last 720 hours. Imaging: Results for orders placed or performed during the hospital encounter of 06/02/24 XR Chest One View (Exam End: 06/03/2024 2:41 AM) Result Value WORKSTATION ID [id number] Impression No radiographically evident acute cardiopulmonary process. Thank you for letting us participate in the care of this patient. If you are a health care provider and have any questions regarding this report, please contact the number below. For patients who have questions please contact the health respiratory care instructor that requested your imaging first. Electronically signed by: Corazon Mauro MD, [facility] ([phone]), at 06/03/2024 3:[address] Chest wo Contrast (Generic) (Exam End: 06/03/2024 4:33 PM) Result Value WORKSTATION ID [id number] Impression Cardiomegaly. Biventricular ICD leads in place. Thank you for letting us participate in the care of this patient. If you are a health care provider and have any questions regarding this report, please contact the number below. For patients who have questions please contact the health respiratory care instructor that requested your imaging first. Electronically signed by: Stuart Aponte MD, [facility] ([phone]), at 06/03/2024 4:47 PM TTE: Limited echo performed by fellow pediatric oncology nurse to assess LV function. Left ventricle is [...] Dain Colón MD (PGY-1) Cardiology, M1-S2, Pager #[phone] 06/06/24 Associated attestation - Melida Valdes MD [...] a lytic and brought directly to the Plumbing Assembler Installer. Cardiac catheterization demonstrated multivessel disease with severe [...] management. Help appreciated Melida Valdes MD Staff Advertising Representative * Frederick Dunn MD - 06/05/2024 8:13 AM EDT Images from the original note were not included. . Cardiology Progress Note Patient info: Name: George Mehta : 1955 PCP: Mauro Berumen MD PCP phone number: [phone] Date of Admission: 06/02/2024 ( Hospital Day 3 days ) Attending:Melida Valdes MD ID: 69 y.o. male with a h/o DM type 2, HTN, HLD, current smoker (2-3 cigarettes/day), HFrEF with anICD for low EF (~30%), and CAD with prior AR x3 with JENNA placed in [place], Melanoma, PAD, presented to [facility] with 1 hour of retrosternal CP (05/13) [...] in the last 7068 hours. Invalid input(s): [id number] Recent Labs 06/05/24 1134 06/05/24 0727 06/04/24 1943 06/04/24 1526 06/04/24 1109 06/04/24 0711 06/03/24 2005 06/03/24 1748 06/03/24 1114 06/03/24 0754 06/02/24 2331 POCGLU 211* 166 175 154 188 182 136 191 166 195 156 Heme No results for input(s): LDH, HAPTOGLOBIN, URICACID in the last 168 hours. ABG (Arterial Blood Gas) No results found for: PHART, PO2ART, IGP7TEV, IQU2CMC Microbiology: Microbiology Results (Last 30 days) No results found for the last 720 hours. Imaging: Results for orders placed or performed during the hospital encounter of 06/02/24 XR Chest One View (Exam End: 06/03/2024 2:41 AM) Result Value WORKSTATION ID [id number] Impression No radiographically evident acute cardiopulmonary process. Thank you for letting us participate in the care of this patient. If you are a health care provider and have any questions regarding this report, please contact the number below. For patients who have questions please contact the health respiratory care instructor that requested your imaging first. Electronically signed by: Corazon Mauro MD, [facility] ([phone]), at 06/03/2024 3:[address] Chest wo Contrast (Generic) (Exam End: 06/03/2024 4:33 PM) Result Value WORKSTATION ID [id number] Impression Cardiomegaly. Biventricular ICD leads in place. Thank you for letting us participate in the care of this patient. If you are a health care provider and have any questions regarding this report, please contact the number below. For patients who have questions please contact the health respiratory care instructor that requested your imaging first. Electronically signed by: Stuart Aponte MD, [facility] ([phone]), at 06/03/2024 4:47 PM TTE: Limited echo performed by fellow pediatric oncology nurse to assess LV function. Left ventricle is [...] all the information they need regarding the HANDLE MACHINE OPERATOR-D.Plan for MRI tomorrow. Starting 40 mg IV [...] (Active) Number of days: 2 Code status: @YESSI@ Frederick Dunn MD PGY-3 Associated attestation - [...] a lytic and brought directly to the Plumbing Assembler Installer. Cardiac catheterization demonstrated multivessel disease with severe [...] maintenance of 40. Melida Valdes MD Staff Advertising Representative * Migel Javier RN - 06/05/2024 6:21 AM EDT Implanted device record scanned into: Chart Review-->Media-->External Cardiology-->03/25/2024. Medtronic Amplia MRI Quad CRTD [id number] Serial #: [id number] DDD mode A + Bi/V Rates 50-130 Migel Javier RN * Dain Colón MD - 06/04/2024 11:16 AM EDT Implant Records Requested Type: HANDLE MACHINE OPERATOR-D Cage Maker: Medtronic Product: [id number] Amplia MRI MRI compatibility: Compatible for 1.5-3 T Model #: [id number] Placed at: [place], [place] Records requested for MRI: 1. Operative report 2. Implant log I requested that these records be sent to our MRI department, Dian Colón MD 06/04/24 11:58 AM * Dain Colón MD - 06/04/2024 6:57 AM EDT Images from the original note were not included. . Cardiology Progress Note Patient info: Name: George Mehta : 1955 PCP: Mauro Berumen MD PCP phone number: [phone] Date of Admission: 06/02/2024 ( Hospital Day 2 days ) Attending:Delroy Fofana MD ID: 69 y.o. male with a h/o DM type 2, HTN, HLD, current smoker (2-3 cigarettes/day), HFrEF with anICD for low EF (~30%), and CAD with prior AR x3 with JENNA placed in [place], Melanoma, PAD, presented to [facility] with 1 hour of retrosternal CP (05/13) [...] (Active) Site Preparation/Maintenance dressing: dry and intact 10/31/24 0400 Patency/Maintenance flushed without difficulty;blood return, able [...] in the last 7068 hours. Invalid input(s): BJJDDVZANBQ7D Recent Labs 06/03/24 2005 06/03/24 1748 06/03/24 1114 06/03/24 0754 06/02/24 2331 POCGLU 136 191 166 195 156 Heme No results for input(s): LDH, HAPTOGLOBIN, URICACID in the last 168 hours. ABG (Arterial Blood Gas) No results found for: PHART, PO2ART, GLO3KYN, XUC5WYK Microbiology: Microbiology Results (Last 30 days) No results found for the last 720 hours. Imaging: Results for orders placed or performed during the hospital encounter of 06/02/24 XR Chest One View (Exam End: 06/03/2024 2:41 AM) Result Value WORKSTATION ID [id number] Impression No radiographically evident acute cardiopulmonary process. Thank you for letting us participate in the care of this patient. If you are a health care provider and have any questions regarding this report, please contact the number below. For patients who have questions please contact the health respiratory care instructor that requested your imaging first. Electronically signed by: Corazon Mauro MD, [facility] ([phone]), at 06/03/2024 3:[address] Chest wo Contrast (Generic) (Exam End: 06/03/2024 4:33 PM) Result Value WORKSTATION ID [id number] Impression Cardiomegaly. Biventricular ICD leads in place. Thank you for letting us participate in the care of this patient. If you are a health care provider and have any questions regarding this report, please contact the number below. For patients who have questions please contact the health respiratory care instructor that requested your imaging first. Electronically signed by: Stuart Aponte MD, [facility] ([phone]), at 06/03/2024 4:47 PM TTE: Limited echo performed by fellow pediatric oncology nurse to assess LV function. Left ventricle is [...] -Lasix 40 mg IV given in the senior laboratory technician; assess diuretic response, consider re-dosing [...] a lytic and brought directly to the Plumbing Assembler Installer. Cardiac catheterization demonstrated multivessel disease with severe [...] Friday -Diuresis with Jovanni Valdes MD Staff Advertising Representative * Fatmata Mcallister, PT - 06/03/2024 3:29 PM EDT Physical Therapy 06/03/24 1527 Evaluation & Treatment Document Type contact Total Minutes, Physical Therapy 0 Comment, Session Not Performed PT consult received/hx/current status reviewed. w/u ongoing following STEMI, intenventional plan TBD. Pt is independently mobile at present, will defer imminent asesssment and f.u as appropriate when POC determined (CABG vs PCI) Fatmata Mcallister PT, MSPT Pager [phone] Inpatient Physical Therapy * Marlin Gómez MD [...] Marlin Gómez MD Cardiology S2, Pager # [phone] 06/03/2024 * Delroy Fofana MD - 06/03/2024 7:16 AM EDT Images from the original note were not included. . Cardiology Progress Note Patient info: Name: George Mehta : 1955 PCP: Mauro Berumen MD PCP phone number: [phone] Date of Admission: 06/02/2024 ( Hospital Day 1 day ) Attending:Nuha Rojo MD ID: 69 y.o. male with a h/o DM type 2, HTN, HLD, current smoker (2-3 cigarettes/day), HFrEF with anICD for low EF (~30%), and CAD with prior AR x3 with JENNA placed in [place], Melanoma, PAD, presented to [facility] with 1 hour of retrosternal CP (05/13) [...] Vitals for the past 168 hrs: Weight 06/03/24635 97.1 kg (214 lb) 06/02/24 2259 102 [...] 0-->no symptoms 06/03/24 040 Labs: Recent Labs 06/03/24212 WBC 11.16* HGB [...] in the last 7068 hours. Invalid input(s): IJCAAMXFHPL6K Recent Labs 06/02/24 2331 POCGLU 156 Heme No results for input(s): LDH, HAPTOGLOBIN, URICACID in the last 168 hours. ABG (Arterial Blood Gas) No results found for: PHART, PO2ART, WRX7PDE, UKW4HZU Microbiology: Microbiology Results (Last 30 days) No results found for the last 720 hours. Imaging: Results for orders placed or performed during the hospital encounter of 06/02/24 XR Chest One View (Exam End: 06/03/2024 2:41 AM) Result Value WORKSTATION ID [id number] Impression No radiographically evident acute cardiopulmonary process. Thank you for letting us participate in the care of this patient. If you are a health care provider and have any questions regarding this report, please contact the number below. For patients who have questions please contact the health respiratory care instructor that requested your imaging first. Electronically signed by: Corazon Mauro MD, [facility] ([phone]), at 06/03/2024 3:06 AM TTE: Limited echo performed by fellow pediatric oncology nurse to assess LV function. Left ventricle is [...] -Lasix 40 mg IV given in the senior laboratory technician; assess diuretic response, consider re-dosing [...] (Active) Number of days: 0 Code status: @MIRIAMTAMaria EstherUS@ Dain Colón MD (PGY-1) Cardiology M1-S2, #[id number] 06/03/2024, 7:16 AM Cardiology Staff - Progress Note Addendum This patient was seen and examined on morning rounds with the S2 inpatient team. I agree with the findings and plan of care per Dain Colón MD (health care / medical job titles). Please refer to his note above for details. Very pleasant 69 year old male but he is obese, diabetic, and he is a SMOKER with known prior CAD and moderately reduced LVEF (30%). He has a pacer. History of surgical resection of melanoma on his head. The patient was transferred overnight to [facility] as a STEM[place]. He was treated initially with a lytic (TNK) and brought directly to the senior laboratory technician. The cath demonstrated 3VD with [...] - 06/13/2024 10:58 AM EST ICU Blue (#[id number]) H&P Patient info: Name: George Mehta : 1955 PCP: Mauro Berumen MD PCP phone number: [phone] Date of Admission: 06/02/2024 ( Hospital Day 11 days ) Attending:Haja Byrnes MD ID: George Mehta is a 69 y.o. male with a h/o DM type 2, HTN, HLD, current smoker (2-3 cigarettes/day), HFrEF with an ICD for low EF (~30%), and CAD with prior AR x3 with JENNA placed in [place], Melanoma, PAD, presented to [facility] with 1 hour of retrosternal CP (10/10) while watching TV, foundto have STEMI. HPI: Shahnaz Scanlon H&P 06/02 69 y.o. male with a h/o DM type 2, HTN, HLD, current smoker (2-3 cigarettes/day), HFrEF with an ICD for low EF (~30%), and CAD with prior AR x3 with JENNA placed in [place], Melanoma, PAD, presented to [facility] with 1 hour of retrosternal CP (05/13) while watching TV. CP was non-radiating, not asso ciated with diaphoresis, nausea, or SOB. Denies orthopnea, MARTÍNEZ, palpitations, or LE edema. ECG showed findings consistent with anterior STEMI. He received TNK and was transferred for PCI. Coronary angiography showed a small, non-dominant RCA with nxlb-zi-dfmlposs disease and a dominant,heavily calcified left system with prior stents in the LAD and OM. The LM bifurcates into the LAD and LCX, both heavily calcified. The proximal LCX has a 75% calcified, aneurysmal lesion, and an 80% calcified lesion distally before a large OM2. OM1 is a PIGMENT GRINDER with in-stent restenosis, filling retrograde via collaterals. [...] 40 mg Lasix was administered in the senior laboratory technician. Cardiac surgery was consulted and [...] Blood Gas) No results for input(s): PHART, JME3PQV, PO2ART, TTB7XMX, LACTATEVEN, XHT0HVW, PFRATIOART2 in the last 168 hours. VBG (Venous Blood Gas) Recent Labs 06/10/24 1742 PHVEN 7.34 PO2VEN 24 LWK5EZM 27.4 Mixed Venous Sat No results for input(s): N1LPSY9 in the last 168 hours. Intake/Output Summary (Last 24 hours) at 06/13/2024 1058 Last data filed at 06/13/2024 1005 Gross per 24 hour Intake 300 ml Output 3525 ml Net -3225 ml Patient Vitals for the past 168 hrs: Weight 06/13/24 0325 94 kg (207 lb 3.7 oz) 06/12/24 030 93.8 kg (206 lb 11.2 oz) 06/11/24 [...] pain;no warmth;no palpable cord;no streak formation 06/09/24 0815 LDA Cath/EP Sheath 06/13/24 Proximal;Right;Anterior Femoral (Active) Site Assessment Clean;Dry;Intact 06/13/24939 Intra-Aortic Balloon Pump 06/13/24 0937 (Active) Balloon [...] for input(s): TSH, CORTISOL in the last 7067 hours. Invalid input(s): HFNUICGFUYD3T Recent Labs 06/13/24 0741 06/13/24 0325 06/12/24 2353 06/12/24 1932 06/12/24 1541 06/12/24 1121 06/12/24 0800 06/12/24 0425 06/11/24 2356 06/11/24 2025 06/11/24 1624 06/11/24 1108 POCGLU 126 99 141 158 113 207* 169 132 135 210* 81 233* Heme No results for input(s): LDH, HAPTOGLOBIN, URICACID in the last 168 hours. ABG (Arterial Blood Gas) No results for input(s): PHART, SJS5JQR, PO2ART, HUS4CRJ, LACTATEVEN, EJX2TIY, PFRATIOART2 in the last 168 hours. VBG (Venous Blood Gas) Recent Labs 06/10/24 1742 PHVEN 7.34 PO2VEN 24 VJW7ZXR 27.4 Mixed Venous Sat No results for input(s): W5LGXQ5 in the last 168 hours. Microbiology: Microbiology [...] Plan for CABG 06/14. Patient NPO at NH. #ASCVD / STEMI: -Holding Plavix; continue ASA [...] (Give Meds) Daily Healthy Menu Choices/Cardiac diet ([facility]Diet) DVT Prophylaxis: SCD GI Prophylaxis: None Dispo: [...] is in the chart Rebeca Prado MD [employer] PGY6 [id number] * Shahnaz Scanlon MD - [...] prior AR x3 with JENNA placed in [place], Melanoma, PAD, presented to [facility] with 1 hour of retrosternal CP (05/13) while watching TV. CP was non-radiating, not assoc iated with diaphoresis, nausea, or SOB. Denies orthopnea, MARTÍNEZ, palpitations, or LE edema. ECG showed findings consistent with anterior STEMI. He received TNK and was transferred for PCI. Coronary angiography showed a small, non-dominant RCA with hfms-lu-uzrqmcyp disease and a dominant,heavily calcified left system with prior stents in the LAD and OM. The LM bifurcates into the LAD and LCX, both heavily calcified. The proximal LCX has a 75% calcified, aneurysmal lesion, and an 80% calcified lesion distally before a large OM2. OM1 is a PIGMENT GRINDER with in-stent restenosis, filling retrograde via collaterals. [...] 40 mg Lasix was administered in the senior laboratory technician. Past Medical History: As per [...] Affect: Mood normal. Behavior: Behavior normal. Diagnostics: [facility] 06/02/2024 Coronary angiography revealed small non dominant [...] -Lasix 40 mg IV given in the senior laboratory technician; assess diuretic response. -Continue carvedilol; [...] & Follow-up Care: Contact information for follow-up [facility] [address] [facility] [address] Cardiac Rehab, [address] [address] JAMIE GRAMAJO confirmed with [facility] that they [...] Payor: AARP MANAGED MEDICARE / Plan: AARP [facility] MANAGED MEDICARE COMPLETE / Product Type: [...] Ongoing (Interventions Implemented as Appropriate) Mary Lou PIERRE, RN * Consult Note - Teresa Roberts RN - 06/18/2024 10:50 AM EST [facility] George Mehta was seen today regarding participation in the outpatient Phase 2 Cardiac Rehabilitation at [facility]. The patient agrees to a referral to [...] Referrals: pending clinical course and PT/OT recs [facility] [address] [facility] [address] PHONE: [phone] FAX: [phone] Transportation: family or friend will provide Barriers [...] (Interventions Implemented as Appropriate) * Plan of Danelle - Renetta Solares - 06/16/2024 6:34 PM [...] MEDICARE Payor: AARP MANAGED MEDICARE / [facility] / Product Type: *No Product type* / Secondary Insurance: N/A Plan for discharge is: Home w/ Services Outpatient Agency/Support Group Needs: Homecare agency Agency Choices: [facility]: Medication checks, Registered Nurse, Physical Therapy Agency Referrals: pending clinical course and PT/OT recs [facility] [address] [place] [address] PHONE: [phone] FAX: [phone] Transportation: family or friend will provide Barriers [...] home with home health services when MR. RN CM will continue to monitor for anticipated d/c needs. Anticipated Date of Discharge: 06/19/2024 * Op Note - Bobby Loja MD - 06/14/2024 8:48 AM EST [facility] [place] Note Patient Name: George Mehta : [id number] MR#: [id number] Case Date: 06/14/2024 Surgeon: Surgeons and Role: * Bobby Loja MD - Primary * Rashi Bass PA - Physician Modern And Contemporary Art Curator Preoperative diagnosis: CAD, MARIALUISA flickering mass on [...] belongings with patient. PLAN MOVING FORWARD: laborer powerhouse and transfer to [facility]. INDIVIDUALIZED FALL PREVENTION INTERVENTIONS: Assistance [level of [...] MEDICARE Payor: AARP MANAGED MEDICARE / Plan: [facility] MANAGED MEDICARE COMPLETE / Product Type: *No Product type* / Secondary Insurance: N/A Plan for discharge is: Home w/ Services Outpatient Agency/Support Group Needs: Homecare agency, Agency Choices: [facility]. Home Health Services: Medication checks, Registered Nurse, Physical Therapy Agency Referrals: [facility] [address] [address] RN / PT Routed 06/10 Transportation: family or friend will provide Barriers to discharge: Global: Discharge planning. Global Comment: coordination of VNA services prior to discharge Plan: Patient is not medically ready related to: STEMI, Severe MVD CAD. Plan going forward is: GDMT. Transfer to [facility] this for IABP support prior to planned CABG Friday Patient to discharge to home via POV with home health services when medically ready. tar roofer/Mid Wife will continue to follow patient???s progress and remain available if situation changes for coordination of care, psychosocial support and/or discharge planning. Anticipated Date of Discharge: 06/18/2024 Mariia Montero RN CM Extension [phone] * Plan of Care - Migel Javier [...] no response. I reached out to Rashi Bsas PA-C regarding the concern. Rashi mentioned that [...] Payor: AARP MANAGED MEDICARE / Plan: AARP [facility] MANAGED MEDICARE COMPLETE / Product Type: [...] consult for high risk PCI vs CABG tar roofer/Mid Wife will continue to follow patient???s progress and remain available if situation changes for coordination of care, psychosocial support and/or discharge planning. Anticipated Date of Discharge: 06/11/2024 Mariia Montero RN CM Extension [phone] * Plan of Care - Becca Hope RN - 06/08/2024 7:40 AM EST OUTCOME EVALUATION NOTE: OUTCOME SUMMARY: Patient A&Ox4 on RA Denies any CP or SOB. Urinal at bedside, ambulates independently to bathroom. Ambulates around hallways independently. Insulin given per OCT, Heparin running currently therapeutic. Plan Moving Forward [...] Absence of Embolism Signs and Symptoms 06/07/2024 0657 by Becca Hope RN Outcome: Ongoing (Interventions [...] CABG and to provide a review of terminologist diabetes care. Diabetes History: George Mehta has [...] Breakfast- varies - eggs with khoury or nepali muffin Lunch- turkey sandwich Supper- meat and [...] Infusions: heparin (porcine) infusion 1,400 Units/hr (06/06/24 1686) PRN: insulin lispro, potassium chloride ER OR [...] Baumann APRN Endocrinology Diabetes Management Service Pager: [phone] Weekends please page [phone] 80 minute visit was spent in counseling [...] mid to high 80's. PLAN MOVING FORWARD: [facility] draws w/ AM labs. Continue with [...] Ongoing (Interventions Implemented as Appropriate) 06/05/2024631 by Migle Javier RN Outcome: Ongoing (Interventions Implemented as [...] remote melanoma, and smoker who presented to [facility] last night via EMS after developing acute, severe chest pain while watching TV. Patient was ruled in for STEMI, given TNK, ASA, plavix, heparin gtt, and sent to [facility] [place] coronary [place]. LHC demonstrated severely calcified left coronary system with notable LCx 75/80% lesions and PIGMENT GRINDER OM1 with ISR with collateral retrograde filling, [...] is large. OM1 appears to be a PIGMENT GRINDER, with in stentrestenosis and fills retrograde via [...] y.o. male admitted with STEMI s/p TNK, [facility] showing multivessel CAD including ISR, no culprit [...] to our service. Signed: Paula Treviño PA-C [facility] Section of Cardiac Surgery Date: 06/03/2024 * Initial Assessments - Catina Estrada MSW - 06/03/2024 10:32 AM EDT Office of Care Management Initial Assessment CHINA Humphrey reviewed record and discussed patient with Care Team. Source of Information: Team, bedside nurse, medical record, and Patient CHINA Introduced self/reviewed role; services accepted. Admitted From: Transfer from another hospital Location: [facility] [place] [facility] Reason for Hospitalization: Chest Pain while watching [...] 180 days) Any patient receiving care in [place] must abide by [place] law. The hierarchy [...] (i) The agent with financial power of health care attorney or a conservator appointed in accordance [...] homeless or living in a prison (including now)?: No In the past 12 months has the [employer], gas, oil, or water [employer] threatened to shut off services in your [...] in the bathroom) Home Address confirmed as: [address] [place] [address] [address] [facility] [address] Social & Family Supports: All names listed [...] Pertinent/Service Specific Information: Health/Prescription Coverage: Primary Insurance: [facility] MANAGED MEDICARE Payor: [facility] MANAGED MEDICARE / Plan: [facility] MANAGED MEDICARE COMPLETE / Product Type: *No Product type* / Secondary Insurance: N/A ; Prescription Coverage: Yes Preferred Pharmacy: [id number] - [place], [place] - [address] [facility] [address] [facility] [address] [place] Status: Patient is a : No Primary Care Provider confirmed: Mauro Berumen MD [phone] Patient/Caregiver Goals of Treatment: Potential Needs for [...] care as indicated. CHINA Min Cardiology, ext. [phone] * Brief Op Note - Angeles Gaxiola PA - 06/03/2024 12:23 AM EDT Preliminary Cardiac Catheterization Procedure Note: Patient Name: George Mehta : [id number] MR#: [id number] Case Date: 06/02/2024 - 06/03/2024 District Scout Executive: Surgeons and Role: * Nuha Shen MD - Primary * Angeles Gaxiola PA - Physician Modern And Contemporary Art Curator Preoperative diagnosis: STEMI Postoperative diagnosis: * STEMI * Procedure(s) performed: RRA access [facility] Coronary angiogram IVUS LM/LAD/LCX Access: 6 Fr RRA A time-out was conducted prior to the start of the procedure to verify the correct patient and procedure, procedure location, and all relevant critical information. Preliminary findings: 69 year old current smoker (1-2 cigarette's per day), DM type 2, hypertension, dyslipidemia, ICD for HFrEF/low EF (~30%), CAD with prior AR and 3 stents historically (in [place]) who presented to [facility] with 1 hour of rest chest pain [...] is large. OM1 appears to be a PIGMENT GRINDER, with in stentrestenosis and fills retrograde via [...] receive 40 mg of lasix in the senior laboratory technician. Recommendations: surgical consult for possible [...] EST BLOOD GAS ARTERIAL POC Routine 4 4:51 PM EST POC, GLUCOSE Routine 06/14/2024 [...] 7:20 AM EST Coronary artery disease involving confederated coos coronary artery of confederated coos heart without angina pectoris POC, GLUCOSE Routine [...] - 199 mg/dL 06/21/2024 3:51 AM EST [facility] Comment:Supplemental ranges: <140 mg/dL before meals <180 mg/dL all other times of the day. Blood CAPILLARY BLOOD / Unknown 06/21/2024 3:51 AM EST 06/21/2024 3:51 AM EST Bobby Loja MD POINT OF CARE TEST O RDERABLES [facility] [place] [address] * (ABNORMAL) Basic Metabolic Panel (06/21/2024 2:09 AM EST) Glucose 169 65 - 199 mg/dL 06/21/2024 3:10 AM EST [facility] Comment:Glucose Concentratio n >=200 mg/dL plus symptoms is consistent with Diabetes Mellitus. Blood Urea Nitrogen 27(H) 10 - 20 mg/dL 06/21/2024 3:10 AM EST [facility] Creatinine 1.24 0.80 - 1.50 mg/dL 06/21/2024 3:10 AM EST [facility] Sodium 138 135 - 145 mMol/L 06/21/2024 3:10 AM EST [facility] Potassium 4.2 3.5 - 5.0 mMol/L 06/21/2024 3:10 AM [facility] Chloride 100 98 - 107 mMol/L 06/21/2024 3:10 AM [facility] Carbon Dioxide 27 22 - 31 mMol/L 06/21/2024 3:10 AM [facility] Anion Gap 11 5 - 15 mMol/L 06/21/2024 3:10 AM [facility] Calcium 8.7 8.5 - 10.5 mg/dL 06/21/2024 3:10 AM [facility] Est Glomerular Filtration Rate - Male 64 mL/min/1. 73 m?? 06/21/2024 3:10 AM [facility] Comment: [...] AM EST 06/21/2024 2:37 AM EST Keila Garciafield ADVERTISING REPRESENTATIVE CHEMISTRY ORDERABL ES [facility] [place] [address] * POC, GLUCOSE (06/21/2024 12:04 AM EST) Glucometer, POC 157 65 - 199 mg/dL 06/21/2024 12:04 AM EST [facility] Comment:Supplemental ranges: <140 mg/dL before meals <180 mg/dL all other times of the day. Blood CAPILLARY BLOOD / Unknown 06/21/2024 12:04 AM EST 06/21/2024 12:04 AM EST Narrative Authorizing Provider Result Saranya Loja MD POINT OF CARE TEST O NIKA Performing Organization Address City/[facility] Co de Phone Number [facility] [place] [address] * POC, GLUCOSE (06/20/2024 11:14 PM EST) Glucometer, POC 67 65 - 199 mg/dL 06/20/2024 11:14 PM EST [facility] Comment:Supplemental ranges: <140 mg/dL before meals <180 mg/dL all other times of the day. Blood CAPILLARY BLOOD / Unknown 06/20/2024 11:14 PM EST 06/20/2024 11:14 PM EST Bobby Loja MD POINT OF CARE TEST Abimael MAHER Performing Organization Address [facility] Co de Phone Number [facility] [place] [address] * POC, GLUCOSE (06/20/2024 7:16 PM EST) Glucometer, POC 132 65 - 199 mg/dL 06/20/2024 7:16 PM EST [facility] Comment:Supplemental ranges: <140 mg/dL before meals <180 mg/dL all other times of the day. Blood CAPILLARY BLOOD / Unknown 06/20/2024 7:16 PM EST 06/20/2024 7:16 PM EST Narrative Authorizing Provider Result Saranya Loja MD POINT OF CARE TEST Abimael MAHER Performing Organization Address City/[facility] Co de Phone Number [facility] [place] [address] * POC, GLUCOSE (06/20/2024 3:39 PM EST) Glucometer, POC 124 65 - 199 mg/dL 06/20/2024 3:40 PM EST [facility] Comment:Supplemental ranges: <140 mg/dL before meals <180 mg/dL all other times of the day. Blood CAPILLARY BLOOD / Unknown 06/20/2024 3:39 PM EST 06/20/2024 3:40 PM EST Bobby Loja MD POINT OF CARE TEST O NIKA [facility] [place] [address] * POC, GLUCOSE (06/20/2024 12:02 PM EST) Glucometer, POC 173 65 - 199 mg/dL 06/20/2024 12:03 PM EST [facility] Comment:Supplemental ranges: <140 mg/dL before meals <180 mg/dL all other times of the day. Blood CAPILLARY BLOOD / Unknown 06/20/2024 12:02 PM EST 06/20/2024 12:03 PM EST Bobby Loja MD POINT OF CARE TEST O NIKA Performing Organization Address City/[facility]/ZIP Co de Phone Number [facility] [place] [address] * POC, GLUCOSE (06/20/2024 7:10 AM EST) Glucometer, POC 130 65 - 199 mg/dL 06/20/2024 7:11 AM EST [facility] Comment:Supplemental ranges: <140 mg/dL before meals <180 mg/dL all other times of the day. Blood CAPILLARY BLOOD / Unknown 06/20/2024 7:10 AM EST 06/20/2024 7:11 AM EST Bobby Loja MD POINT OF CARE TEST O NIKA [facility] [place] [place] [address] * (ABNORMAL) Basic Metabolic Panel (06/20/2024 2:28 AM EST) Glucose 79 65 - 199 mg/dL 06/20/2024 3:06 AM [facility] Comment:Glucose Concentratio n >=200 mg/dL plus symptoms is consistent with Diabetes Mellitus. Blood Urea Nitrogen 38(H) 10 - 20 mg/dL 06/20/2024 3:06 AM [facility] Creatinine 1.39 0.80 - 1.50 mg/dL 06/20/2024 3:06 AM [facility] Sodium 137 135 - 145 mMol/L 06/20/2024 3:06 AM [facility] Potassium 3.6 3.5 - 5.0 mMol/L 06/20/2024 3:06 AM [facility] Chloride 100 98 - 107 mMol/L 06/20/2024 3:06 AM [facility] Carbon Dioxide 29 22 - 31 mMol/L 06/20/2024 3:06 AM [facility] Anion Gap 8 5 - 15 mMol/L 06/20/2024 3:06 AM [facility] Calcium 8.4(L) 8.5 - 10.5 mg/dL 06/20/2024 3:06 AM [facility] Est Glomerular Filtration Rate - Male 56 mL/min/1. 73 m?? 06/20/2024 3:06 AM [facility] Comment: [...] APRN CHEMISTRY ORDERABL ES Performing Organization Address [facility] Co de Phone Number [facility] [place] [address] * POC, GLUCOSE (06/20/2024 12:32 AM EST) Glucometer, POC 86 65 - 199 mg/dL 06/20/2024 12:32 AM EST [facility] Comment:Supplemental ranges: <140 mg/dL before meals <180 mg/dL all other times of the day. Blood CAPILLARY BLOOD / Unknown 06/20/2024 12:32 AM EST 06/20/2024 12:32 AM EST Bobby Loja MD POINT OF CARE TEST O RDERABLES Performing Organization Address [facility] Co de Phone Number [facility] [place] [address] * (ABNORMAL) POC, GLUCOSE (06/20/2024 12:02 AM EST) Glucometer, POC 59(L) 65 - 199 mg/dL 06/20/2024 12:02 AM EST [facility] Comment:Supplemental ranges: <140 mg/dL before meals <180 mg/dL all other times of the day. Blood CAPILLARY BLOOD / Unknown 06/20/2024 12:02 AM EST 06/20/2024 12:03 AM EST Bobby Loja MD POINT OF CARE TEST O RDERAPIETER Performing Organization Address City/[facility]/ZIP Co de Phone Number [facility] [place] [address] * POC, GLUCOSE (06/19/2024 8:15 PM EST) Glucometer, POC 131 65 - 199 mg/dL 06/19/2024 8:15 PM EST [facility] Comment:Supplemental ranges: <140 mg/dL before meals <180 mg/dL all other times of the day. Blood CAPILLARY BLOOD / Unknown 06/19/2024 8:15 PM EST 06/19/2024 8:15 PM EST Narrative Authorizing Provider Result Saranya Loja MD POINT OF CARE TEST O NIKA Performing Organization Address [facility] Co de Phone Number [facility] [place] [address] * POC, GLUCOSE (06/19/2024 6:01 PM EST) Glucometer, POC 129 65 - 199 mg/dL 06/19/2024 6:01 PM EST [facility] Comment:Supplemental ranges: <140 mg/dL before meals <180 mg/dL all other times of the day. Blood CAPILLARY BLOOD / Unknown 06/19/2024 6:01 PM EST 06/19/2024 6:02 PM EST Bobby Loja MD POINT OF CARE TEST Abimael MAHER Performing Organization Address [facility] Co de Phone Number [facility] [place] [address] * POC, GLUCOSE (06/19/2024 4:51 PM EST) Glucometer, POC 155 65 - 199 mg/dL 06/19/2024 4:51 PM EST [facility] Comment:Supplemental ranges: <140 mg/dL before meals <180 mg/dL all other times of the day. Blood CAPILLARY BLOOD / Unknown 06/19/2024 4:51 PM EST 06/19/2024 4:51 PM EST Narrative Authorizing Provider Result Saranya Loja MD POINT OF CARE TEST Abimael MAHER Performing Organization Address [facility] Co de Phone Number [facility] [place] [address] * POC, GLUCOSE (06/19/2024 12:37 PM EST) Glucometer, POC 136 65 - 199 mg/dL 06/19/2024 12:37 PM EST [facility] Comment:Supplemental ranges: <140 mg/dL before meals <180 mg/dL all other times of the day. Blood CAPILLARY BLOOD / Unknown 06/19/2024 12:37 PM EST 06/19/2024 12:37 PM EST Bobby Loja MD POINT OF CARE TEST O NIKA [facility] [place] [address] * POC, GLUCOSE (06/19/2024 11:20 AM EST) Glucometer, POC 185 65 - 199 mg/dL 06/19/2024 11:21 AM EST [facility] Comment:Supplemental ranges: <140 mg/dL before meals <180 mg/dL all other times of the day. Blood CAPILLARY BLOOD / Unknown 06/19/2024 11:20 AM EST 06/19/2024 11:21 AM EST Bobby Loja MD POINT OF CARE TEST O NIKA Performing Organization Address City/[facility]/ZIP Co de Phone Number [facility] [place] [address] * POC, GLUCOSE (06/19/2024 7:21 AM EST) Glucometer, POC 125 65 - 199 mg/dL 06/19/2024 7:21 AM EST [facility] Comment:Supplemental ranges: <140 mg/dL before meals <180 mg/dL all other times of the day. Blood CAPILLARY BLOOD / Unknown 06/19/2024 7:21 AM EST 06/19/2024 7:22 AM EST Bobby Loja MD POINT OF CARE TEST O NIKA [facility] [place] [place] [address] * POC, GLUCOSE (06/19/2024 4:52 AM EST) Glucometer, POC 125 65 - 199 mg/dL 06/19/2024 4:52 AM EST [facility] Comment:Supplemental ranges: <140 mg/dL before meals <180 mg/dL all other times of the day. Blood CAPILLARY BLOOD / Unknown 06/19/2024 4:52 AM EST 06/19/2024 4:52 AM EST Bobby Loja MD POINT OF CARE TEST O NIKA Performing Organization Address City/[facility]/ZIP Co de Phone Number [facility] [place] [address] * POC, GLUCOSE (06/19/2024 4:13 AM EST) Glucometer, POC 67 65 - 199 mg/dL 06/19/2024 4:13 AM EST [facility] Comment:Supplemental ranges: <140 mg/dL before meals <180 mg/dL all other times of the day. Blood CAPILLARY BLOOD / Unknown 06/19/2024 4:13 AM EST 06/19/2024 4:13 AM EST Bobby Loja MD POINT OF CARE TEST O NIKA Performing Organization Address [facility] Co de Phone Number [facility] [place] [address] * (ABNORMAL) POC, GLUCOSE (06/19/2024 3:48 AM EST) Glucometer, POC 51(LLL) 65 - 199 mg/dL 06/19/2024 3:48 AM EST [facility] Comment:Supplemental ranges: <140 mg/dL before meals <180 mg/dL all other times of the day. Blood CAPILLARY BLOOD / Unknown 06/19/2024 3:48 AM EST 06/19/2024 3:48 AM EST Bobby Loja MD POINT OF CARE TEST O NIKA Performing Organization Address City/[facility]/ZIP Co de Phone Number [facility] [place] [address] * (ABNORMAL) Basic Metabolic Panel (06/19/2024 3:44 AM EST) Glucose 53(LLL) 65 - 199 mg/dL 06/19/2024 4:48 AM [facility] Comment:Glucose Concentratio n >=200 mg/dL plus symptoms is consistent with Diabetes Mellitus. Blood Urea Nitrogen 42(H) 10 - 20 mg/dL 06/19/2024 4:48 AM [facility] Creatinine 1.29 0.80 - 1.50 mg/dL 06/19/2024 4:48 AM [facility] Sodium 138 135 - 145 mMol/L 06/19/2024 4:48 AM [facility] Potassium 3.6 3.5 - 5.0 mMol/L 06/19/2024 4:48 AM [facility] Chloride 100 98 - 107 mMol/L 06/19/2024 4:48 AM [facility] Carbon Dioxide 29 22 - 31 mMol/L 06/19/2024 4:48 AM [facility] Anion Gap 9 5 - 15 mMol/L 06/19/2024 4:48 AM [facility] Calcium 8.8 8.5 - 10.5 mg/dL 06/19/2024 4:48 AM [facility] Est Glomerular Filtration Rate - Male 61 mL/min/1. 73 m?? 06/19/2024 4:48 AM [facility] Comment: [...] APRN CHEMISTRY ORDERABL ES Performing Organization Address City/[facility]/ZIP Co de Phone Number [facility] [place] [address] * POC, GLUCOSE (06/19/2024 12:23 AM EST) Glucometer, POC 82 65 - 199 mg/dL 06/19/2024 12:23 AM EST [facility] Comment:Supplemental ranges: <140 mg/dL before meals <180 mg/dL all other times of the day. Blood CAPILLARY BLOOD / Unknown 06/19/2024 12:23 AM EST 06/19/2024 12:23 AM EST Bobby Loja MD POINT OF CARE TEST O NIKA Performing Organization Address [facility] Co de Phone Number [facility] [place] [address] * POC, GLUCOSE (06/18/2024 11:08 PM EST) Glucometer, POC 73 65 - 199 mg/dL 06/18/2024 11:08 PM EST [facility] Comment:Supplemental ranges: <140 mg/dL before meals <180 mg/dL all other times of the day. Blood CAPILLARY BLOOD / Unknown 06/18/2024 11:08 PM EST 06/18/2024 11:08 PM EST Bobby Loja MD POINT OF CARE TEST O NIKA Performing Organization Address City/[facility]/ZIP Co de Phone Number [facility] [place] [address] * POC, GLUCOSE (06/18/2024 7:32 PM EST) Glucometer, POC 167 65 - 199 mg/dL 06/18/2024 7:32 PM EST [facility] Comment:Supplemental ranges: <140 mg/dL before meals <180 mg/dL all other times of the day. Blood CAPILLARY BLOOD / Unknown 06/18/2024 7:32 PM EST 06/18/2024 7:32 PM EST Bobby Loja MD POINT OF CARE TEST O NIKA [facility] [place] [address] * POC, GLUCOSE (06/18/2024 6:08 PM EST) Glucometer, POC 140 65 - 199 mg/dL 06/18/2024 6:09 PM EST [facility] Comment:Supplemental ranges: <140 mg/dL before meals <180 mg/dL all other times of the day. Blood CAPILLARY BLOOD / Unknown 06/18/2024 6:08 PM EST 06/18/2024 6:09 PM EST Bobby Loja MD POINT OF CARE TEST O NIKA Performing Organization Address City/[facility]/ZIP Co de Phone Number [facility] [place] [address] * POC, GLUCOSE (06/18/2024 4:17 PM EST) Glucometer, POC 144 65 - 199 mg/dL 06/18/2024 4:17 PM EST [facility] Comment:Supplemental ranges: <140 mg/dL before meals <180 mg/dL all other times of the day. Blood CAPILLARY BLOOD / Unknown 06/18/2024 4:17 PM EST 06/18/2024 4:17 PM EST Bobby Loja MD POINT OF CARE TEST O NIKA [facility] [place] [place] [address] * POC, GLUCOSE (06/18/2024 12:09 PM EST) Glucometer, POC 180 65 - 199 mg/dL 06/18/2024 12:09 PM EST [facility] Comment:Supplemental ranges: <140 mg/dL before meals <180 mg/dL all other times of the day. Blood CAPILLARY BLOOD / Unknown 06/18/2024 12:09 PM EST 06/18/2024 12:09 PM EST Bobby Loja MD POINT OF CARE TEST O NIKA Performing Organization Address City/[facility] Co de Phone Number [facility] [place] [address] * POC, GLUCOSE (06/18/2024 7:49 AM EST) Glucometer, POC 125 65 - 199 mg/dL 06/18/2024 7:50 AM EST [facility] Comment:Supplemental ranges: <140 mg/dL before meals <180 mg/dL all other times of the day. Blood CAPILLARY BLOOD / Unknown 06/18/2024 7:49 AM EST 06/18/2024 7:50 AM EST Bobby Loja MD POINT OF CARE TEST Abimael MAHER Performing Organization Address [facility] Co de Phone Number [facility] [place] [address] * (ABNORMAL) Basic Metabolic Panel (06/18/2024 4:19 AM EST) Glucose 103 65 - 199 mg/dL 06/18/2024 5:03 AM [facility] Comment:Glucose Concentratio n >=200 mg/dL plus symptoms is consistent with Diabetes Mellitus. Blood Urea Nitrogen 43(H) 10 - 20 mg/dL 06/18/2024 5:03 AM [facility] Creatinine 1.45 0.80 - 1.50 mg/dL 06/18/2024 5:03 AM [facility] Sodium 131(L) 135 - 145 mMol/L 06/18/2024 5:03 AM [facility] Potassium 4.2 3.5 - 5.0 mMol/L 06/18/2024 5:03 AM [facility] Chloride 97(L) 98 - 107 mMol/L 06/18/2024 5:03 AM [facility] Carbon Dioxide 25 22 - 31 mMol/L 06/18/2024 5:03 AM [facility] Anion Gap 9 5 - 15 mMol/L 06/18/2024 5:03 AM [facility] Calcium 8.5 8.5 - 10.5 mg/dL 06/18/2024 5:03 AM [facility] Est Glomerular Filtration Rate - Male 53 mL/min/1. 73 m?? 06/18/2024 5:03 AM [facility] Comment: [...] EST 06/18/2024 4:31 AM EST Keila Dayan ADVERTISING REPRESENTATIVE CHEMISTRY ORDERABL ES [facility] [place] [address] * POC, GLUCOSE (06/18/2024 3:50 AM EST) Glucometer, POC 99 65 - 199 mg/dL 06/18/2024 3:51 AM EST [facility] Comment:Supplemental ranges: <140 mg/dL before meals <180 mg/dL all other times of the day. Blood CAPILLARY BLOOD / Unknown 06/18/2024 3:50 AM EST 06/18/2024 3:51 AM EST Bobby Loja MD POINT OF CARE TEST O NIKA Performing Organization Address [facility] Co de Phone Number [facility] [place] [address] * POC, GLUCOSE (06/17/2024 11:10 PM EST) Glucometer, POC 92 65 - 199 mg/dL 06/17/2024 11:10 PM EST [facility] Comment:Supplemental ranges: <140 mg/dL before meals <180 mg/dL all other times of the day. Blood CAPILLARY BLOOD / Unknown 06/17/2024 11:10 PM EST 06/17/2024 11:10 PM EST Bobby Loja MD POINT OF CARE TEST O NIKA Performing Organization Address [facility] Co de Phone Number [facility] [place] [address] * POC, GLUCOSE (06/17/2024 7:54 PM EST) Glucometer, POC 126 65 - 199 mg/dL 06/17/2024 7:54 PM EST [facility] Comment:Supplemental ranges: <140 mg/dL before meals <180 mg/dL all other times of the day. Blood CAPILLARY BLOOD / Unknown 06/17/2024 7:54 PM EST 06/17/2024 7:54 PM EST Narrative Authorizing Provider Result Saranya Loja MD POINT OF CARE TEST O NIKA Performing Organization Address [facility] Co de Phone Number [facility] [place] [address] * POC, GLUCOSE (06/17/2024 4:07 PM EST) Glucometer, POC 141 65 - 199 mg/dL 06/17/2024 4:12 PM EST [facility] Comment:Supplemental ranges: <140 mg/dL before meals <180 mg/dL all other times of the day. Blood CAPILLARY BLOOD / Unknown 06/17/2024 4:07 PM EST 06/17/2024 4:12 PM EST Bobby Loja MD POINT OF CARE TEST O RDERABLES [facility] [place] [address] * XR Chest PA & Lateral (Generic) (06/17/2024 1:46 PM EST) WORKSTATION ID [id number] RAD Anatomical Region Laterality Modality Chest N/A [...] who have questions please contact the health respiratory care instructor that requested your imaging first. ? Narrative [...] patients who have questions please contactthe health respiratory care instructor that requested your imaging first. Electronically signed by: Josselyn Spence MD, [facility]([phone]), at 06/17/2024 4:49 PM Keila Hanley APRN IMG DX ORDERABLES * (ABNORMAL) POC, GLUCOSE (06/17/2024 11:04 AM EST) [facility] Signature Glucometer, POC 245(H) 65 - 199 mg/dL 06/17/2024 11:04 AM EST [facility] Comment:Supplemental ranges: <140 mg/dL before meals <180 mg/dL all other times of the day. Blood CAPILLARY BLOOD / Unknown 06/17/2024 11:04 AM EST 06/17/2024 11:04 AM EST Bobby Loja MD POINT OF CARE TEST O RDERABLES [facility] [place] [address] * POC, GLUCOSE (06/17/2024 7:49 AM EST) Glucometer, POC 141 65 - 199 mg/dL 06/17/2024 7:55 AM EST [facility] Comment:Supplemental ranges: <140 mg/dL before meals <180 mg/dL all other times of the day. Blood CAPILLARY BLOOD / Unknown 06/17/2024 7:49 AM EST 06/17/2024 7:55 AM EST Bobby Loja MD POINT OF CARE TEST O RDERABLES Performing Organization Address City/[facility]/ZIP Co de Phone Number [facility] [place] [address] * POC, GLUCOSE (06/17/2024 4:16 AM EST) Glucometer, POC 139 65 - 199 mg/dL 06/17/2024 4:16 AM EST [facility] Comment:Supplemental ranges: <140 mg/dL before meals <180 mg/dL all other times of the day. Blood CAPILLARY BLOOD / Unknown 06/17/2024 4:16 AM EST 06/17/2024 4:17 AM EST Bobby Loja MD POINT OF CARE TEST O RDERABLES Performing Organization Address City/[facility]/ZIP Co de Phone Number [facility] [place] [address] * Lactate, Whole Blood (06/17/2024 2:39 AM EST) Lactate, Whole Blood 1.3 0.5 - 2.2 mmol/L 06/17/2024 2:46 AM EST [facility] Blood VENOUS BLOOD SPECIMEN / Unknown Venipuncture / Unknown 06/17/2024 2:39 AM EST 06/17/2024 2:43 AM EST Bobby Loja MD CHEMISTRY ORDERABLES [facility] [place] [address] * (ABNORMAL) Hemogram (06/17/2024 2:39 AM EST) White Blood Cell 13.53(H) 4.00 - 9.50 x10(3)/mc L 06/17/2024 2:53 AM [facility] Red Blood Cell 3.55(L) 4.58 - 5.54 x10(6)/mc L 06/17/2024 2:53 AM [facility] Hemoglobin 10.8(L) 13.7 - 16.5 g/dL 06/17/2024 2:53 AM [facility] Hematocrit 33.0(L) 40.5 - 48.5 % 06/17/2024 2:53 AM [facility] Mean Cell Volume 93.0 82.9 - 93.1 fL 06/17/2024 2:53 AM [facility] Mean Cell Hemoglobin 30.4 27.5 - 32.1 pg 06/17/2024 2:53 AM [facility] Mean Cell Hemoglobin Concentration 32.7 32.0 - 35.7 g/dL 06/17/2024 2:53 AM [facility] Platelet 101(L) 145 - 357 x10(3)/mc L 06/17/2024 2:53 AM [facility] Mean Platelet Volume 10.4 7.6 - 12.9 fL 06/17/2024 2:53 AM [facility] RDW Standard Deviation 48.4(H) 36.0 - 45.0 fL 06/17/2024 2:53 AM [facility] RDW coefficient of variation 14.1(H) 11.4 - 13.8 % 06/17/2024 2:53 AM [facility] NRBC% auto 0.0 % 06/17/2024 2:53 AM [facility] NRBC Absolute <0.01 <0.01 x10(3)/mc L 06/17/2024 2:53 AM [facility] Blood VENOUS BLOOD SPECIMEN / Unknown Venipuncture / Unknown 06/17/2024 2:39 AM EST 06/17/2024 2:43 AM EST Bobby Loja MD HEMATOLOGY ORDERABLE S [facility] [place] [address] * (ABNORMAL) Basic Metabolic Panel (06/17/2024 2:39 AM EST) Glucose 149 65 - 199 mg/dL 06/17/2024 3:14 AM EST [facility] Comment:Glucose Concentratio n >=200 mg/dL plus symptoms is consistent with Diabetes Mellitus. Blood Urea Nitrogen 42(H) 10 - 20 mg/dL 06/17/2024 3:14 AM [facility] Creatinine 1.52(H) 0.80 - 1.50 mg/dL 06/17/2024 3:14 AM [facility] Sodium 133(L) 135 - 145 mMol/L 06/17/2024 3:14 AM [facility] Potassium 4.5 3.5 - 5.0 mMol/L 06/17/2024 3:14 AM [facility] Chloride 101 98 - 107 mMol/L 06/17/2024 3:14 AM [facility] Carbon Dioxide 23 22 - 31 mMol/L 06/17/2024 3:14 AM [facility] Anion Gap 9 5 - 15 mMol/L 06/17/2024 3:14 AM [facility] Calcium 8.8 8.5 - 10.5 mg/dL 06/17/2024 3:14 AM [facility] Est Glomerular Filtration Rate - Male 50 mL/min/1. 73 m?? 06/17/2024 3:14 AM [facility] Comment: [...] Loja MD CHEMISTRY ORDERABLES Performing Organization Address [facility] Co de Phone Number [facility] [place] [address] * (ABNORMAL) POC, GLUCOSE (06/17/2024 12:13 AM EST) Glucometer, POC 211(H) 65 - 199 mg/dL 06/17/2024 12:13 AM EST [facility] Comment:Supplemental ranges: <140 mg/dL before meals <180 mg/dL all other times of the day. Blood CAPILLARY BLOOD / Unknown 06/17/2024 12:13 AM EST 06/17/2024 12:14 AM EST Bobby Loja MD POINT OF CARE TEST O RDERABLES Performing Organization Address City/[facility] Co de Phone Number [facility] [place] [address] * (ABNORMAL) POC, GLUCOSE (06/16/2024 7:22 PM EST) Glucometer, POC 229(H) 65 - 199 mg/dL 06/16/2024 7:22 PM EST [facility] Comment:Supplemental ranges: <140 mg/dL before meals <180 mg/dL all other times of the day. Blood CAPILLARY BLOOD / Unknown 06/16/2024 7:22 PM EST 06/16/2024 7:22 PM EST Bobby Loja MD POINT OF CARE TEST O NIKA Performing Organization Address [facility] Co de Phone Number [facility] [place] [address] * (ABNORMAL) POC, GLUCOSE (06/16/2024 6:14 PM EST) Glucometer, POC 220(H) 65 - 199 mg/dL 06/16/2024 6:14 PM EST [facility] Comment:Supplemental ranges: <140 mg/dL before meals <180 mg/dL all other times of the day. Blood CAPILLARY BLOOD / Unknown 06/16/2024 6:14 PM EST 06/16/2024 6:14 PM EST Bobby Loja MD POINT OF CARE TEST O NIKA Performing Organization Address [facility] de Phone Number [facility] [place] [address] * Lactate, Whole Blood (06/16/2024 6:14 PM EST) Lactate, Whole Blood 1.8 0.5 - 2.2 mmol/L 06/16/2024 6:27 PM EST [facility] Blood VENOUS BLOOD SPECIMEN / Unknown Venipuncture / Unknown 06/16/2024 6:14 PM EST 06/16/2024 6:25 PM EST Bobby Loja MD CHEMISTRY ORDERABLES Performing Organization Address [facility] Co de Phone Number [facility] [place] [address] * (ABNORMAL) POC, GLUCOSE (06/16/2024 4:14 PM EST) Glucometer, POC 240(H) 65 - 199 mg/dL 06/16/2024 4:14 PM EST [facility] Comment:Supplemental ranges: <140 mg/dL before meals <180 mg/dL all other times of the day. Blood CAPILLARY BLOOD / Unknown 06/16/2024 4:14 PM EST 06/16/2024 4:14 PM EST Bobby Loja MD POINT OF CARE TEST O NIKA Performing Organization Address [facility]/ZIP Co de Phone Number [facility] [place] [address] * POC, GLUCOSE (06/16/2024 11:49 AM EST) Glucometer, POC 199 65 - 199 mg/dL 06/16/2024 11:49 AM EST [facility] Comment:Supplemental ranges: <140 mg/dL before meals <180 mg/dL all other times of the day. Blood CAPILLARY BLOOD / Unknown 06/16/2024 11:49 AM EST 06/16/2024 11:49 AM EST Bobby Loja MD POINT OF CARE TEST Abimael MAHER Performing Organization Address [facility] Co de Phone Number [facility] [place] [address] * (ABNORMAL) Hemogram (06/16/2024 11:44 AM EST) White Blood Cell 17.91(H) 4.00 - 9.50 x10(3)/mc L 06/16/2024 12:25 PM [facility] Red Blood Cell 3.47(L) 4.58 - 5.54 x10(6)/mc L 06/16/2024 12:25 PM [facility] Hemoglobin 10.5(L) 13.7 - 16.5 g/dL 06/16/2024 12:25 PM [facility] Hematocrit 33.1(L) 40.5 - 48.5 % 06/16/2024 12:25 PM [facility] Mean Cell Volume 95.4(H) 82.9 - 93.1 fL 06/16/2024 12:25 PM [facility] Mean Cell Hemoglobin 30.3 27.5 - 32.1 pg 06/16/2024 12:25 PM [facility] Mean Cell Hemoglobin Concentration 31.7(L) 32.0 - 35.7 g/dL 06/16/2024 12:25 PM [facility] Platelet 101(L) 145 - 357 x10(3)/mc L 06/16/2024 12:25 PM [facility] Mean Platelet Volume 10.6 7.6 - 12.9 fL 06/16/2024 12:25 PM [facility] RDW Standard Deviation 49.5(H) 36.0 - 45.0 fL 06/16/2024 12:25 PM [facility] RDW coefficient of variation 14.2(H) 11.4 - 13.8 % 06/16/2024 12:25 PM [facility] NRBC% auto 0.0 % 06/16/2024 12:25 PM [facility] NRBC Absolute <0.01 <0.01 x10(3)/mc L 06/16/2024 12:25 PM [facility] Blood VENOUS BLOOD SPECIMEN / Unknown Venipuncture / Unknown 06/16/2024 11:44 AM EST 06/16/2024 12:03 PM EST Bobby Loja [place] [address] * Lactate, Whole Blood (06/16/2024 9:02 AM EST) Lactate, Whole Blood 1.8 0.5 - 2.2 mmol/L 06/16/2024 9:19 AM EST [facility] Blood VENOUS BLOOD SPECIMEN / Unknown Venipuncture / Unknown 06/16/2024 9:02 AM EST 06/16/2024 9:17 AM EST Bobby Loja MD CHEMISTRY ORDERABLES [facility] [place] [address] * POC, GLUCOSE (06/16/2024 7:44 AM EST) Glucometer, POC 129 65 - 199 mg/dL 06/16/2024 7:44 AM EST [facility] Comment:Supplemental ranges: <140 mg/dL before meals <180 mg/dL all other times of the day. Blood CAPILLARY BLOOD / Unknown 06/16/2024 7:44 AM EST 06/16/2024 7:44 AM EST Bobby Loja MD POINT OF CARE TEST O RDERABLES Performing Organization Address City/[facility]/ZIP Co de Phone Number [facility] [place] [address] * POC, GLUCOSE (06/16/2024 4:01 AM EST) Glucometer, POC 158 65 - 199 mg/dL 06/16/2024 4:01 AM EST [facility] Comment:Supplemental ranges: <140 mg/dL before meals <180 mg/dL all other times of the day. Blood CAPILLARY BLOOD / Unknown 06/16/2024 4:01 AM EST 06/16/2024 4:01 AM EST Bobby Loja MD POINT OF CARE TEST O RDERAPIETER Performing Organization Address City/[facility]/ZIP Co de Phone Number [facility] [place] [address] * (ABNORMAL) Basic Metabolic Panel (06/16/2024 2:23 AM EST) Glucose 177 65 - 199 mg/dL 06/16/2024 3:13 AM EST [facility] Comment:Glucose Concentratio n >=200 mg/dL plus symptoms is consistent with Diabetes Mellitus. Blood Urea Nitrogen 37(H) 10 - 20 mg/dL 06/16/2024 3:13 AM EST [facility] Creatinine 2.10(H) 0.80 - 1.50 mg/dL 06/16/2024 3:13 AM EST [facility] Sodium 132(L) 135 - 145 mMol/L 06/16/2024 3:13 AM [facility] Potassium 4.5 3.5 - 5.0 mMol/L 06/16/2024 3:13 AM [facility] Chloride 99 98 - 107 mMol/L 06/16/2024 3:13 AM [facility] Carbon Dioxide 22 22 - 31 mMol/L 06/16/2024 3:13 AM [facility] Anion Gap 11 5 - 15 mMol/L 06/16/2024 3:13 AM [facility] Calcium 9.0 8.5 - 10.5 mg/dL 06/16/2024 3:13 AM [facility] Est Glomerular Filtration Rate - Male 34 mL/min/1. 73 m?? 06/16/2024 3:13 AM [facility] Comment: [...] AM EST Bobby Loja MD CHEMISTRY ORDERABLES [facility] [place] [address] * POC, GLUCOSE (06/16/2024 2:21 AM EST) [facility] Signature Glucometer, POC 176 65 - 199 mg/dL 06/16/2024 2:31 AM [facility] Comment:Supplemental ranges: <140 mg/dL before meals <180 mg/dL all other times of the day. Blood CAPILLARY BLOOD / Unknown 06/16/2024 2:21 AM EST 06/16/2024 2:31 AM EST Bobby Loja MD POINT OF CARE TEST O RALPHERAPIETER Performing Organization Address City/[facility]/ZIP Co de Phone Number [facility] [place] [address] * (ABNORMAL) POC, GLUCOSE (06/16/2024 12:09 AM EST) Glucometer, POC 222(H) 65 - 199 mg/dL 06/16/2024 12:09 AM EST [facility] Comment:Supplemental ranges: <140 mg/dL before meals <180 mg/dL all other times of the day. Blood CAPILLARY BLOOD / Unknown 06/16/2024 12:09 AM EST 06/16/2024 12:09 AM EST Bobby Loja MD POINT OF CARE TEST O NIKA Performing Organization Address City/[facility]/ZIP Co de Phone Number [facility] [place] [address] * (ABNORMAL) POC, GLUCOSE (06/15/2024 10:07 PM EST) Glucometer, POC 320(H) 65 - 199 mg/dL 06/15/2024 10:07 PM EST [facility] Comment:Supplemental ranges: <140 mg/dL before meals <180 mg/dL all other times of the day. Blood CAPILLARY BLOOD / Unknown 06/15/2024 10:07 PM EST 06/15/2024 10:07 PM EST Bobby Loja MD POINT OF CARE TEST O NIKA [facility] [place] [address] * (ABNORMAL) POC, GLUCOSE (06/15/2024 7:56 PM EST) Glucometer, POC 304(H) 65 - 199 mg/dL 06/15/2024 7:56 PM EST [facility] Comment:Supplemental ranges: <140 mg/dL before meals <180 mg/dL all other times of the day. Blood CAPILLARY BLOOD / Unknown 06/15/2024 7:56 PM EST 06/15/2024 7:56 PM EST Bobby Loja MD POINT OF CARE TEST O NIKA Performing Organization Address [facility] Co de Phone Number [facility] [place] [address] * (ABNORMAL) POC, GLUCOSE (06/15/2024 7:52 PM EST) Glucometer, POC 288(H) 65 - 199 mg/dL 06/15/2024 7:52 PM EST [facility] Comment:Supplemental ranges: <140 mg/dL before meals <180 mg/dL all other times of the day. Blood CAPILLARY BLOOD / Unknown 06/15/2024 7:52 PM EST 06/15/2024 7:52 PM EST Bobby Loja MD POINT OF CARE TEST O NIKA Performing Organization Address [facility] Co de Phone Number [facility] [place] [address] * POC, GLUCOSE (06/15/2024 4:21 PM EST) Glucometer, POC 192 65 - 199 mg/dL 06/15/2024 4:21 PM EST [facility] Comment:Supplemental ranges: <140 mg/dL before meals <180 mg/dL all other times of the day. Blood CAPILLARY BLOOD / Unknown 06/15/2024 4:21 PM EST 06/15/2024 4:21 PM EST Bobby Loja MD POINT OF CARE TEST O NIKA [facility] [place] [address] * POC, GLUCOSE (06/15/2024 3:27 PM EST) Glucometer, POC 155 65 - 199 mg/dL 06/15/2024 3:27 PM EST [facility] Comment:Supplemental ranges: <140 mg/dL before meals <180 mg/dL all other times of the day. Blood CAPILLARY BLOOD / Unknown 06/15/2024 3:27 PM EST 06/15/2024 3:27 PM EST Bobby Loja MD POINT OF CARE TEST O NIKA Performing Organization Address City/[facility] Co de Phone Number [facility] [place] [address] * POC, GLUCOSE (06/15/2024 2:23 PM EST) Glucometer, POC 160 65 - 199 mg/dL 06/15/2024 2:23 PM EST [facility] Comment:Supplemental ranges: <140 mg/dL before meals <180 mg/dL all other times of the day. Blood CAPILLARY BLOOD / Unknown 06/15/2024 2:23 PM EST 06/15/2024 2:23 PM EST Bobby Loja MD POINT OF CARE TEST O NIKA Performing Organization Address City/[facility]/ZIP Co de Phone Number [facility] [place] [address] * POC, GLUCOSE (06/15/2024 1:26 PM EST) Glucometer, POC 167 65 - 199 mg/dL 06/15/2024 1:26 PM EST [facility] Comment:Supplemental ranges: <140 mg/dL before meals <180 mg/dL all other times of the day. Blood CAPILLARY BLOOD / Unknown 06/15/2024 1:26 PM EST 06/15/2024 1:26 PM EST Bobby Loja MD POINT OF CARE TEST O RDERABLES Performing Organization Address [facility] Co de Phone Number [facility] [place] [address] * (ABNORMAL) POC, GLUCOSE (06/15/2024 12:55 PM EST) Glucometer, POC 210(H) 65 - 199 mg/dL 06/15/2024 12:55 PM EST [facility] Comment:Supplemental ranges: <140 mg/dL before meals <180 mg/dL all other times of the day. Blood CAPILLARY BLOOD / Unknown 06/15/2024 12:55 PM EST 06/15/2024 12:55 PM EST Bobby Loja MD POINT OF CARE TEST O NIKA Performing Organization Address [facility] Co de Phone Number [facility] [place] [address] * (ABNORMAL) POC, GLUCOSE (06/15/2024 11:29 AM EST) Glucometer, POC 220(H) 65 - 199 mg/dL 06/15/2024 11:29 AM EST [facility] Comment:Supplemental ranges: <140 mg/dL before meals <180 mg/dL all other times of the day. Blood CAPILLARY BLOOD / Unknown 06/15/2024 11:29 AM EST 06/15/2024 11:29 AM EST Bobby Loja MD POINT OF CARE TEST O RALPHERAPIETER Performing Organization Address City/[facility] Co de Phone Number [facility] [place] [address] * (ABNORMAL) Basic Metabolic Panel (06/15/2024 11:23 AM EST) Glucose 215(H) 65 - 199 mg/dL 06/15/2024 12:08 PM EST [facility] Comment:Glucose Concentratio n >=200 mg/dL plus symptoms is consistent with Diabetes Mellitus. Blood Urea Nitrogen 24(H) 10 - 20 mg/dL 06/15/2024 12:08 PM [facility] Creatinine 1.54(H) 0.80 - 1.50 mg/dL 06/15/2024 12:08 PM [facility] Sodium 135 135 - 145 mMol/L 06/15/2024 12:08 PM [facility] Potassium 4.5 3.5 - 5.0 mMol/L 06/15/2024 12:08 PM [facility] Chloride 105 98 - 107 mMol/L 06/15/2024 12:08 PM [facility] Carbon Dioxide 19(L) 22 - 31 mMol/L 06/15/2024 12:08 PM [facility] Anion Gap 11 5 - 15 mMol/L 06/15/2024 12:08 PM [facility] Calcium 8.3(L) 8.5 - 10.5 mg/dL 06/15/2024 12:08 PM [facility] Est Glomerular Filtration Rate - Male 49 mL/min/1. 73 m?? 06/15/2024 12:08 PM [facility] Comment: This [...] AM EST Bobby Loja MD CHEMISTRY ORDERABLES [facility] [place] [id number] * POC, GLUCOSE (06/15/2024 10:29 AM EST) Glucometer, POC 189 65 - 199 mg/dL 06/15/2024 10:29 AM EST [facility] Comment:Supplemental ranges: <140 mg/dL before meals <180 mg/dL all other times of the day. Blood CAPILLARY BLOOD / Unknown 06/15/2024 10:29 AM EST 06/15/2024 10:29 AM EST Bobby Loja MD POINT OF CARE TEST O RDERAPIETER Performing Organization Address City/[facility]/ZIP Co de Phone Number [facility] [place] [address] * POC, GLUCOSE (06/15/2024 9:45 AM EST) Glucometer, POC 178 65 - 199 mg/dL 06/15/2024 9:45 AM EST [facility] Comment:Supplemental ranges: <140 mg/dL before meals <180 mg/dL all other times of the day. Blood CAPILLARY BLOOD / Unknown 06/15/2024 9:45 AM EST 06/15/2024 9:45 AM EST Bobby Loja MD POINT OF CARE TEST O RDBECKIE [facility] [place] [address] * (ABNORMAL) Cooximetry, POC (06/15/2024 9:31 AM EST) pO2, Coox 38 mmHg 06/15/2024 9:34 AM EST [facility] Hemoglobin, Coox 12.9(L) 13.7 - 16.5 g/dL 06/15/2024 9:34 AM EST [facility] Oxyhemoglobin, Coox 72.1 % 06/15/2024 9:34 AM EST [facility] Carboxyhemoglo bin, Coox 0.9 % 06/15/2024 9:34 AM EST [facility] Comment: Nonsmokers: 0.5-1.5% COHB ?? Smokers: Variable ??but usually less than 10% ?? Toxic: 20-30% COHB ?? Lethal: Greater than 60% COHB Methemoglobin, Coox 0.3 <=1.5 % 06/15/2024 9:34 AM EST [facility] Blood (Mixed Venous) 06/15/2024 9:31 AM EST 06/15/2024 9:34 AM EST Bobby Loja MD POINT OF CARE TEST O NIKA Performing Organization Address [facility] Co de Phone Number [facility] [place] [address] * Cooximetry, POC (06/15/2024 9:22 AM EST) pO2, Coox 30 mmHg 06/15/2024 9:25 AM EST [facility] Hemoglobin, Coox 06/15/2024 9:25 AM EST [facility] Comment:QUES Oxyhemoglobin, Coox 06/15/2024 9:25 AM EST [facility] Comment:QUES Carboxyhemoglo bin, Coox 06/15/2024 9:25 AM EST [facility] Comment:QUES Methemoglobin, Coox 06/15/2024 9:25 AM EST [facility] Comment:QUES Blood (Mixed Venous) 06/15/2024 9:22 AM EST 06/15/2024 9:25 AM EST Bobby Loja MD POINT OF CARE TEST O RDBECKIE Performing Organization Address City/[facility] Co de Phone Number [facility] [place] [address] * (ABNORMAL) Blood Gas, Arterial POC (06/15/2024 9:19 AM EST) pH, Arterial 7.31(L) 7.35 - 7.45 06/15/2024 9:21 AM [facility] PCO2, Arterial 36 35 - 45 mmHg 06/15/2024 9:21 AM [facility] PO2, Arterial 94 85 - 104 mmHg 06/15/2024 9:21 AM [facility] Bicarbonate, Arterial 18.0(L) 20.0 - 26.0 mmol/L 06/15/2024 9:21 AM [facility] Base Excess, Arterial -8.2(L) -3.0 - 3.0 mmol/L 06/15/2024 9:21 AM [facility] Hemoglobin, Arterial 12.7(L) 13.7 - 16.5 g/dL 06/15/2024 9:21 AM [facility] Oxyhemoglobin, Arterial 96.0 94.0 - 97.0 % 06/15/2024 9:21 AM [facility] Carboxyhemoglobin , Arterial 0.5 % 06/15/2024 9:21 AM [facility] Comment: Nonsmokers: 0.5-1.5% COHB ?? Smokers: Variable ??but usually less than 10% ?? Toxic: 20-30% COHB ?? Lethal: Greater than 60% COHB Methemoglobin, Arterial 0.3 <=1.5 % 06/15/2024 9:21 AM [facility] Sodium, Arterial 136 135 - 145 mmol/L 06/15/2024 9:21 AM [facility] Potassium, Arterial 4.0 3.5 - 5.0 mmol/L 06/15/2024 9:21 AM [facility] Chloride, Arterial 106 98 - 107 mmol/L 06/15/2024 9:21 AM [facility] Lactate, Arterial 1.7 0.5 - 2.2 mmol/L 06/15/2024 9:21 AM [facility] Flow Rate 2.0 L/min 06/15/2024 9:21 AM [facility] IONIZED CALCIUM, ARTERIAL 1.14(L) 1.15 - 1.33 mmol/L 06/15/2024 9:21 AM EST [facility] Glucose, Arterial 193 65 - 199 mg/dL 06/15/2024 9:21 AM EST [facility] Comment:Glucose Concentratio n >=200 mg/dL plus symptoms is consistent with Diabetes Mellitus. Blood ARTERIAL BLOOD / Unknown 06/15/2024 9:19 AM EST 06/15/2024 9:20 AM EST Bobby Loja MD POINT OF CARE TEST O NIKA Performing Organization Address [facility] Co de Phone Number [facility] [place] [address] * (ABNORMAL) POC, GLUCOSE (06/15/2024 8:37 AM EST) Glucometer, POC 204(H) 65 - 199 mg/dL 06/15/2024 8:37 AM EST [facility] Comment:Supplemental ranges: <140 mg/dL before meals <180 mg/dL all other times of the day. Blood CAPILLARY BLOOD / Unknown 06/15/2024 8:37 AM EST 06/15/2024 8:37 AM EST Bobby Loja MD POINT OF CARE TEST O NIKA Performing Organization Address [facility] Co de Phone Number [facility] [place] [address] * POC, GLUCOSE (06/15/2024 7:37 AM EST) Glucometer, POC 199 65 - 199 mg/dL 06/15/2024 7:37 AM EST [facility] Comment:Supplemental ranges: <140 mg/dL before meals <180 mg/dL all other times of the day. Blood CAPILLARY BLOOD / Unknown 06/15/2024 7:37 AM EST 06/15/2024 7:38 AM EST Narrative Authorizing Provider Result Saranya Loja MD POINT OF CARE TEST O NIKA Performing Organization Address City/State/[facility] de Phone Number [facility] [place] [address] * (ABNORMAL) POC, GLUCOSE (06/15/2024 7:01 AM EST) Glucometer, POC 203(H) 65 - 199 mg/dL 06/15/2024 7:01 AM EST [facility] Comment:Supplemental ranges: <140 mg/dL before meals <180 mg/dL all other times of the day. Blood CAPILLARY BLOOD / Unknown 06/15/2024 7:01 AM EST 06/15/2024 7:01 AM EST Bobby Loja MD POINT OF CARE TEST O RDERABLES Performing Organization Address [facility] de Phone Number [facility] [place] [address] * XR Chest One View (06/15/2024 6:31 AM EST) Pathologist Modria WORKSTATION ID [id number] [facility] Anatomical Region Laterality Modality Chest N/A Digital [...] who have questions please contact the health respiratory care instructor that requested your imaging first. ? Narrative 06/15/2024 10:38 AM EST EXAMINATION: XR [...] patients who have questions please contactthe health respiratory care instructor that requested your imaging first. Electronically signed by: Stuart Aponte MD, [facility]([phone]), at 06/15/2024 10:38 AM Bobby Loja MD IMG DX ORDERABLES * POC, GLUCOSE (06/15/2024 6:02 AM EST) Glucometer, POC 179 65 - 199 mg/dL 06/15/2024 6:02 AM EST [facility] Comment:Supplemental ranges: <140 mg/dL before meals <180 mg/dL all other times of the day. Blood CAPILLARY BLOOD / Unknown 06/15/2024 6:02 AM EST 06/15/2024 6:02 AM EST Bobby Loja MD POINT OF CARE TEST O NIKA Performing Organization Address [facility] Co de Phone Number [facility] [place] [address] * POC, GLUCOSE (06/15/2024 5:06 AM EST) Glucometer, POC 160 65 - 199 mg/dL 06/15/2024 5:06 AM EST [facility] Comment:Supplemental ranges: <140 mg/dL before meals <180 mg/dL all other times of the day. Blood CAPILLARY BLOOD / Unknown 06/15/2024 5:06 AM EST 06/15/2024 5:06 AM EST Bobby Loja MD POINT OF CARE TEST Abimael MAHER Performing Organization Address [facility] Co de Phone Number [facility] [place] [address] * POC, GLUCOSE (06/15/2024 4:05 AM EST) Glucometer, POC 160 65 - 199 mg/dL 06/15/2024 4:06 AM EST [facility] Comment:Supplemental ranges: <140 mg/dL before meals <180 mg/dL all other times of the day. Blood CAPILLARY BLOOD / Unknown 06/15/2024 4:05 AM EST 06/15/2024 4:06 AM EST Bobby Loja MD POINT OF CARE TEST O NIKA Performing Organization Address City/[facility] Co de Phone Number [facility] [place] [address] * POC, GLUCOSE (06/15/2024 3:07 AM EST) Glucometer, POC 151 65 - 199 mg/dL 06/15/2024 3:07 AM EST [facility] Comment:Supplemental ranges: <140 mg/dL before meals <180 mg/dL all other times of the day. Blood CAPILLARY BLOOD / Unknown 06/15/2024 3:07 AM EST 06/15/2024 3:07 AM EST Bobby Loja MD POINT OF CARE TEST O RDERABLES [facility] [place] [address] * (ABNORMAL) Basic Metabolic Panel (06/15/2024 1:48 AM EST) Glucose 140 65 - 199 mg/dL 06/15/2024 2:38 AM EST [facility] Comment:Glucose Concentratio n >=200 mg/dL plus symptoms is consistent with Diabetes Mellitus. Blood Urea Nitrogen 21(H) 10 - 20 mg/dL 06/15/2024 2:38 AM [facility] Creatinine 1.27 0.80 - 1.50 mg/dL 06/15/2024 2:38 AM [facility] Sodium 140 135 - 145 mMol/L 06/15/2024 2:38 AM [facility] Potassium 4.4 3.5 - 5.0 mMol/L 06/15/2024 2:38 AM [facility] Chloride 108(H) 98 - 107 mMol/L 06/15/2024 2:38 AM [facility] Carbon Dioxide 23 22 - 31 mMol/L 06/15/2024 2:38 AM [facility] Anion Gap 9 5 - 15 mMol/L 06/15/2024 2:38 AM [facility] Calcium 8.3(L) 8.5 - 10.5 mg/dL 06/15/2024 2:38 AM [facility] Est Glomerular Filtration Rate - Male 62 mL/min/1. 73 m?? 06/15/2024 2:38 AM [facility] Comment: [...] AM EST Bobby Loja MD CHEMISTRY ORDERABLES [facility] [place] [address] * (ABNORMAL) CBC (with Diff) (06/15/2024 1:48 AM EST) White Blood Cell 11.71(H) 4.00 - 9.50 x10(3)/mc L 06/15/2024 2:13 AM [facility] Red Blood Cell 4.14(L) 4.58 - 5.54 x10(6)/mc L 06/15/2024 2:13 AM EST [facility] Hemoglobin 12.5(L) 13.7 - 16.5 g/dL 06/15/2024 2:13 AM [facility] Hematocrit 38.4(L) 40.5 - 48.5 % 06/15/2024 2:13 AM [facility] Mean Cell Volume 92.8 82.9 - 93.1 fL 06/15/2024 2:13 AM [facility] Mean Cell Hemoglobin 30.2 27.5 - 32.1 pg 06/15/2024 2:13 AM [facility] Mean Cell Hemoglobin Concentration 32.6 32.0 - 35.7 g/dL 06/15/2024 2:13 AM [facility] Platelet 101(L) 145 - 357 x10(3)/mc L 06/15/2024 2:13 AM [facility] Mean Platelet Volume 10.0 7.6 - 12.9 fL 06/15/2024 2:13 AM [facility] RDW Standard Deviation 48.8(H) 36.0 - 45.0 fL 06/15/2024 2:13 AM [facility] RDW coefficient of variation 14.2(H) 11.4 - 13.8 % 06/15/2024 2:13 AM [facility] NRBC% auto 0.0 % 06/15/2024 2:13 AM [facility] NRBC Absolute <0.01 <0.01 x10(3)/mc L 06/15/2024 2:13 AM [facility] Neutrophil % 79.7 % 06/15/2024 2:13 AM [facility] Neutrophil Absolute (ANC) - Automated 9.34(H) 1.70 - 6.10 x10(3)/mc L 06/15/2024 2:13 AM [facility] Lymph % 8.0 % 06/15/2024 2:13 AM [facility] Lymph Absolute 0.94 0.90 - 3.20 x10(3)/mc L 06/15/2024 2:13 AM [facility] Monocyte % 11.4 % 06/15/2024 2:13 AM [facility] Monocyte Absolute 1.33(H) 0.30 - 0.90 x10(3)/mc L 06/15/2024 2:13 AM [facility] Eos % 0.2 % 06/15/2024 2:13 AM [facility] Eos Absolute <0.04 0.00 - 0.40 x10(3)/mc L 06/15/2024 2:13 AM [facility] Basophil % 0.2 % 06/15/2024 2:13 AM [facility] Baso Absolute <0.04 0.00 - 0.10 x10(3)/mc L 06/15/2024 2:13 AM [facility] Immature Gran % 0.5 % 2:13 AM EST [facility] Immature Gran Absolute 0.06(H) 0.00 - 0.04 x10(3)/mc L 06/15/2024 2:13 AM EST [facility] Blood VENOUS BLOOD SPECIMEN / Unknown Venipuncture / Unknown 06/15/2024 1:48 AM EST 06/15/2024 1:52 AM EST Bobby Loja MD HEMATOLOGY ORDERABLE S [facility] [place] [address] * (ABNORMAL) Troponin - Single (06/15/2024 1:48 AM EST) Troponin-T, High Sensitivity 667(H) <=22 ng/L 06/15/2024 2:22 AM EST [facility] Comment: This patient's troponin [...] troponin value can be found in the [facility] Laboratory Test Catalog Troponin - [email or web address].org/[email or web address] Reference: [employer] Definition of Myocardial Infarction. Journal of the [place] [employer] 2018;72:6435-7892 Blood VENOUS BLOOD SPECIMEN / Unknown Venipuncture / Unknown 06/15/2024 1:48 AM EST 06/15/2024 1:52 AM EST Bobby Loja MD CHEMISTRY ORDERABLES [facility] [place] [address] * (ABNORMAL) Blood Gas, Arterial POC (06/15/2024 1:46 AM EST) pH, Arterial 7.33(L) 7.35 - 7.45 06/15/2024 1:47 AM EST [facility] PCO2, Arterial 40 35 - 45 mmHg 06/15/2024 1:47 AM [facility] PO2, Arterial 131(H) 85 - 104 mmHg 06/15/2024 1:47 AM [facility] Bicarbonate, Arterial 20.7 20.0 - 26.0 mmol/L 06/15/2024 1:47 AM [facility] Base Excess, Arterial -5.2(L) -3.0 - 3.0 mmol/L 06/15/2024 1:47 AM [facility] Hemoglobin, Arterial 13.4(L) 13.7 - 16.5 g/dL 06/15/2024 1:47 AM [facility] Oxyhemoglobin, Arterial 97.9(H) 94.0 - 97.0 % 06/15/2024 1:47 AM [facility] Carboxyhemoglobin , Arterial 0.5 % 06/15/2024 1:47 AM [facility] Comment: Nonsmokers: 0.5-1.5% COHB ?? Smokers: Variable ??but usually less than 10% ?? Toxic: 20-30% COHB ?? Lethal: Greater than 60% COHB Methemoglobin, Arterial 0.3 <=1.5 % 06/15/2024 1:47 AM EST [facility] Sodium, Arterial 139 135 - 145 mmol/L 06/15/2024 1:47 AM [facility] Potassium, Arterial 4.2 3.5 - 5.0 mmol/L 06/15/2024 1:47 AM [facility] Chloride, Arterial 107 98 - 107 mmol/L 06/15/2024 1:47 AM [facility] Lactate, Arterial 1.8 0.5 - 2.2 mmol/L 06/15/2024 1:47 AM [facility] Fraction of Inspired Oxygen 40 % 06/15/2024 1:47 AM [facility] PF Ratio 328 Ratio 06/15/2024 1:47 AM [facility] Comment:PF ratio calculated using the non-temperature corrected pO2 result. IONIZED CALCIUM, ARTERIAL 1.17 1.15 - 1.33 mmol/L 06/15/2024 1:47 AM [facility] Glucose, Arterial 127 65 - 199 mg/dL 06/15/2024 1:47 AM [facility] Comment:Glucose Concentratio n >=200 mg/dL plus symptoms is consistent with Diabetes Mellitus. Blood ARTERIAL BLOOD / Unknown 06/15/2024 1:46 AM EST 06/15/2024 1:47 AM EST Bobby Loja MD POINT OF CARE TEST O NIKA Performing Organization Address City/[facility]/ZIP Co de Phone Number [facility] [place] [address] * POC, GLUCOSE (06/15/2024 1:05 AM EST) [facility] Signature Glucometer, POC 116 65 - 199 mg/dL 06/15/2024 1:05 AM [facility] Comment:Supplemental ranges: <140 mg/dL before meals <180 mg/dL all other times of the day. Blood CAPILLARY BLOOD / Unknown 06/15/2024 1:05 AM EST 06/15/2024 1:05 AM EST Bobby Loja MD POINT OF CARE TEST O NIKA [facility] [place] [address] * POC, GLUCOSE (06/15/2024 12:16 AM EST) Glucometer, POC 135 65 - 199 mg/dL 06/15/2024 12:16 AM EST [facility] Comment:Supplemental ranges: <140 mg/dL before meals <180 mg/dL all other times of the day. Blood CAPILLARY BLOOD / Unknown 06/15/2024 12:16 AM EST 06/15/2024 12:16 AM EST Bobby Loja MD POINT OF CARE TEST O RDBECKIE Performing Organization Address City/[facility]/ZIP Co de Phone Number [facility] [place] [address] * Potassium (06/14/2024 11:28 PM EST) [facility] Potassium 4.1 3.5 - 5.0 mMol/L 06/14/2024 11:54 PM EST [facility] Blood VENOUS BLOOD SPECIMEN / Unknown Venipuncture / Unknown 06/14/2024 11:28 PM EST 06/14/2024 11:34 PM EST Bobby Loja MD CHEMISTRY ORDERABLES Performing Organization Address City/[facility]/ZIP Co de Phone Number [facility] [place] [address] * POC, GLUCOSE (06/14/2024 10:58 PM EST) Glucometer, POC 126 65 - 199 mg/dL 06/14/2024 10:59 PM EST [facility] Comment:Supplemental ranges: <140 mg/dL before meals <180 mg/dL all other times of the day. Blood CAPILLARY BLOOD / Unknown 06/14/2024 10:58 PM EST 06/14/2024 10:59 PM EST Bobby Loja MD POINT OF CARE TEST O NIKA [facility] [place] [address] * POC, GLUCOSE (06/14/2024 9:55 PM EST) Glucometer, POC 152 65 - 199 mg/dL 06/14/2024 9:56 PM EST [facility] Comment:Supplemental ranges: <140 mg/dL before meals <180 mg/dL all other times of the day. Blood CAPILLARY BLOOD / Unknown 06/14/2024 9:55 PM EST 06/14/2024 9:56 PM EST Bobby Loja MD POINT OF CARE TEST O NIKA Performing Organization Address City/[facility]/ZIP Co de Phone Number [facility] [place] [address] * POC, GLUCOSE (06/14/2024 8:54 PM EST) Glucometer, POC 151 65 - 199 mg/dL 06/14/2024 8:54 PM EST [facility] Comment:Supplemental ranges: <140 mg/dL before meals <180 mg/dL all other times of the day. Blood CAPILLARY BLOOD / Unknown 06/14/2024 8:54 PM EST 06/14/2024 8:54 PM EST Bobby Loja MD POINT OF CARE TEST O NIKA Performing Organization Address City/[facility]/ZIP Co de Phone Number [facility] [place] [address] * POC, GLUCOSE (06/14/2024 7:51 PM EST) Glucometer, POC 169 65 - 199 mg/dL 06/14/2024 7:52 PM EST [facility] Comment:Supplemental ranges: <140 mg/dL before meals <180 mg/dL all other times of the day. Blood CAPILLARY BLOOD / Unknown 06/14/2024 7:51 PM EST 06/14/2024 7:52 PM EST Bobby Loja MD POINT OF CARE TEST O RDERAPIETER Performing Organization Address [facility] Co de Phone Number [facility] [place] [address] * POC, GLUCOSE (06/14/2024 6:49 PM EST) Glucometer, POC 194 65 - 199 mg/dL 06/14/2024 6:50 PM EST [facility] Comment:Supplemental ranges: <140 mg/dL before meals <180 mg/dL all other times of the day. Blood CAPILLARY BLOOD / Unknown 06/14/2024 6:49 PM EST 06/14/2024 6:50 PM EST Bobby Loja MD POINT OF CARE TEST O RDERABLES Performing Organization Address [facility] Co de Phone Number [facility] [place] [address] * (ABNORMAL) Hemoglobin (06/14/2024 6:19 PM EST) Hemoglobin 13.1(L) 13.7 - 16.5 g/dL 06/14/2024 7:08 PM EST [facility] Blood VENOUS BLOOD SPECIMEN / Unknown Venipuncture / Unknown 06/14/2024 6:19 PM EST 06/14/2024 6:28 PM EST Bobby Loja MD HEMATOLOGY ORDERABLE S Performing Organization Address [facility] Co de Phone Number [facility] [place] [address] * Potassium (06/14/2024 6:19 PM EST) Potassium 3.9 3.5 - 5.0 mMol/L 06/14/2024 6:52 PM EST [facility] Blood VENOUS BLOOD SPECIMEN / Unknown Venipuncture / Unknown 06/14/2024 6:19 PM EST 06/14/2024 6:28 PM EST Bobby Loja MD CHEMISTRY ORDERABLES [facility] [place] [address] * (ABNORMAL) POC, GLUCOSE (06/14/2024 6:03 PM EST) [facility] Glucometer, POC 201(H) 65 - 199 mg/dL 06/14/2024 6:03 PM EST [facility] Comment:Supplemental ranges: <140 mg/dL before meals <180 mg/dL all other times of the day. Blood CAPILLARY BLOOD / Unknown 06/14/2024 6:03 PM EST 06/14/2024 6:03 PM EST Bobby Loja MD POINT OF CARE TEST O RDERABLES Performing Organization Address [facility]/ZIP Co de Phone Number [facility] [place] [address] * (ABNORMAL) Blood Gas, Arterial POC (06/14/2024 4:51 PM EST) [facility] pH, Arterial 7.32(L) 7.35 - 7.45 06/14/2024 4:52 PM [facility] PCO2, Arterial 46(H) 35 - 45 mmHg 06/14/2024 4:52 PM [facility] PO2, Arterial 85 85 - 104 mmHg 06/14/2024 4:52 PM [facility] Bicarbonate, Arterial 23.1 20.0 - 26.0 mmol/L 06/14/2024 4:52 PM [facility] Base Excess, Arterial -3.1(L) -3.0 - 3.0 mmol/L 06/14/2024 4:52 PM [facility] Hemoglobin, Arterial 14.3 13.7 - 16.5 g/dL 06/14/2024 4:52 PM [facility] Oxyhemoglobin, Arterial 94.7 94.0 - 97.0 % 06/14/2024 4:52 PM [facility] Carboxyhemoglobin , Arterial 0.6 % 06/14/2024 4:52 PM EST [facility] Comment: Nonsmokers: 0.5-1.5% COHB ?? Smokers: Variable ??but usually less than 10% ?? Toxic: 20-30% COHB ?? Lethal: Greater than 60% COHB Methemoglobin, Arterial 0.0 <=1.5 % 06/14/2024 4:52 PM EST [facility] Sodium, Arterial 138 135 - 145 mmol/L 06/14/2024 4:52 PM EST [facility] Potassium, Arterial 4.1 3.5 - 5.0 mmol/L 06/14/2024 4:52 PM [facility] Chloride, Arterial 106 98 - 107 mmol/L 06/14/2024 4:52 PM [facility] Lactate, Arterial 1.3 0.5 - 2.2 mmol/L 06/14/2024 4:52 PM [facility] Fraction of Inspired Oxygen 40 % 06/14/2024 4:52 PM [facility] PF Ratio 213 Ratio 06/14/2024 4:52 PM [facility] Comment:PF ratio calculated using the non-temperature corrected pO2 result. IONIZED CALCIUM, ARTERIAL 1.16 1.15 - 1.33 mmol/L 06/14/2024 4:52 PM [facility] Glucose, Arterial 192 65 - 199 mg/dL 06/14/2024 4:52 PM EST [facility] Comment:Glucose Concentratio n >=200 mg/dL plus symptoms is consistent with Diabetes Mellitus. Blood ARTERIAL BLOOD / Unknown 06/14/2024 4:51 PM EST 06/14/2024 4:52 PM EST Bobby Loja MD POINT OF CARE TEST O RDERABLES [facility] [place] [address] * POC, GLUCOSE (06/14/2024 4:00 PM EST) [facility] Signature Glucometer, POC 184 65 - 199 mg/dL 06/14/2024 4:01 PM EST [facility] Comment:Supplemental ranges: <140 mg/dL before meals <180 mg/dL all other times of the day. Blood CAPILLARY BLOOD / Unknown 06/14/2024 4:00 PM EST 06/14/2024 4:01 PM EST Bobby Loja MD POINT OF CARE TEST O RDERABLES [facility] [place] [address] * XR Chest One View (06/14/2024 3:05 PM EST) WORKSTATION ID [id number] RAD Anatomical Region Laterality Modality Chest N/A [...] who have questions please contact the health respiratory care instructor that requested your imaging first. ? Electronically signed by: Stuart Aponte MD, [facility] ??([phone]), at 06/14/2024 4:07 PM Narrative 06/14/2024 4:07 [...] patients who have questions please contactthe health respiratory care instructor that requested your imaging first. Electronically signed by: Stuart Aponte MD, [facility]([phone]), at 06/14/2024 4:07 PM Bobby Loja MD IMG DX ORDERABLES * (ABNORMAL) Blood Gas, Arterial POC (06/14/2024 2:52 PM EST) pH, Arterial 7.28(LLL) 7.35 - 7.45 06/14/2024 2:53 PM [facility] PCO2, Arterial 50(H) 35 - 45 mmHg 06/14/2024 2:53 PM [facility] PO2, Arterial 510(H) 85 - 104 mmHg 06/14/2024 2:53 PM [facility] Bicarbonate, Arterial 22.8 20.0 - 26.0 mmol/L 06/14/2024 2:53 PM [facility] Base Excess, Arterial -4.0(L) -3.0 - 3.0 mmol/L 06/14/2024 2:53 PM [facility] Hemoglobin, Arterial 13.8 13.7 - 16.5 g/dL 06/14/2024 2:53 PM [facility] Oxyhemoglobin, Arterial 99.3(H) 94.0 - 97.0 % 06/14/2024 2:53 PM [facility] Carboxyhemoglobin , Arterial 0.6 % 06/14/2024 2:53 PM [facility] Comment: Nonsmokers: 0.5-1.5% COHB ?? Smokers: Variable ??but usually less than 10% ?? Toxic: 20-30% COHB ?? Lethal: Greater than 60% COHB Methemoglobin, Arterial 0.1 <=1.5 % 06/14/2024 2:53 PM [facility] Sodium, Arterial 138 135 - 145 mmol/L 06/14/2024 2:53 PM [facility] Potassium, Arterial 4.2 3.5 - 5.0 mmol/L 06/14/2024 2:53 PM [facility] Chloride, Arterial 106 98 - 107 mmol/L 06/14/2024 2:53 PM [facility] Lactate, Arterial 1.1 0.5 - 2.2 mmol/L 06/14/2024 2:53 PM [facility] Fraction of Inspired Oxygen 100 % 06/14/2024 2:53 PM EST [facility] PF Ratio 510 Ratio 06/14/2024 2:53 PM EST [facility] Comment:PF ratio calculated using the non-temperature corrected pO2 result. IONIZED CALCIUM, ARTERIAL 1.15 1.15 - 1.33 mmol/L 06/14/2024 2:53 PM EST [facility] Glucose, Arterial 169 65 - 199 mg/dL 06/14/2024 2:53 PM EST [facility] Comment:Glucose Concentratio n >=200 mg/dL plus symptoms is consistent with Diabetes Mellitus. Blood ARTERIAL BLOOD / Unknown 06/14/2024 2:52 PM EST 06/14/2024 2:53 PM EST Bobby Loja MD POINT OF CARE TEST O RDERABLES Performing Organization Address [facility] Co de Phone Number [facility] [place] [address] * EKG 12 Lead (06/14/2024 2:46 PM EST) Ventricular rate 80 BPM MUSE SYSTEM Atrial Rate 80 BPM MUSE SYSTEM P-R Interval 120 ms MUSE SYSTEM QRS Duration 108 ms MUSE SYSTEM Q-T Interval 454 ms MUSE SYSTEM QTC Calculated (Bezet) 523 ms MUSE SYSTEM Calculated P [place] 70 degrees MUSE SYSTEM Calculated R [place] 56 degrees MUSE SYSTEM Calculated T [place] 50 degrees MUSE SYSTEM INTERPRETATION AV dual-paced rhythm Abnormal ECG When compared with ECG of 03-JUN-2024 01:45, Vent. rate has increased BY ??17 BPM Confirmed by MD Marisol, Shaheen ([id number]) on 06/15/2024 1:57:23 PM MUSE SYSTEM 06/14/2024 2:46 PM EST 06/15/2024 1:57 PM EST Bobby Loja MD ECG ORDERABLES Performing Organization Address City/[facility]/ZIP Co de Phone Number MUSE SYSTEM * Prepare RBC (06/14/2024 2:27 PM EST) Status Information Returned [facility] Product Identification RBC [facility] Unit Number [id number] [facility] Product Code [id number] [facility] Unit Blood Type OPOS [facility] Specimen Expiration Date [facility] Volulme 350 [facility] Issue Date / Time [facility] Status Information Returned [facility] Product Identification RBC [facility] Unit Number [id number] [facility] Product [facility] [id number] [facility] Unit Blood Type OPOS [facility] Specimen Expiration Date [facility] Volulme 350 [facility] Issue Date / Time [facility] Blood 06/14/2024 6:2 5 AM EST Haja Byrnes MD BLOOD BANK PRODUCT O RDERABLES [facility] [place] [address] * (ABNORMAL) Cooximetry, POC (06/14/2024 1:52 PM EST) pO2, Coox 58 mmHg 06/14/2024 1:55 PM EST [facility] Hemoglobin, Coox 12.6(L) 13.7 - 16.5 g/dL 06/14/2024 1:55 PM EST [facility] Oxyhemoglobin, Coox 85.5 % 06/14/2024 1:55 PM EST [facility] Carboxyhemoglo bin, Coox 0.3 % 06/14/2024 1:55 PM EST [facility] Comment: Nonsmokers: 0.5-1.5% COHB ?? Smokers: Variable ??but usually less than 10% ?? Toxic: 20-30% COHB ?? Lethal: Greater than 60% COHB Methemoglobin, Coox 0.6 <=1.5 % 06/14/2024 1:55 PM EST [facility] Blood (Mixed Venous) 06/14/2024 1:52 PM EST 06/14/2024 1:55 PM EST Haja Byrnes MD POINT OF CARE TEST O NIKA [facility] [place] [address] * (ABNORMAL) Blood Gas, Arterial POC (06/14/2024 12:47 PM EST) pH, Arterial 7.33(L) 7.35 - 7.45 06/14/2024 12:48 PM EST [facility] PCO2, Arterial 46(H) 35 - 45 mmHg 06/14/2024 12:48 PM [facility] PO2, Arterial 358(H) 85 - 104 mmHg 06/14/2024 12:48 PM [facility] Bicarbonate, Arterial 23.8 20.0 - 26.0 mmol/L 06/14/2024 12:48 PM [facility] Base Excess, Arterial -2.1 -3.0 - 3.0 mmol/L 06/14/2024 12:48 PM [facility] Hemoglobin, Arterial 11.7(L) 13.7 - 16.5 g/dL 06/14/2024 12:48 PM [facility] Oxyhemoglobin, Arterial 98.7(H) 94.0 - 97.0 % 06/14/2024 12:48 PM [facility] Carboxyhemoglobin , Arterial 0.3 % 06/14/2024 12:48 PM [facility] Comment: Nonsmokers: 0.5-1.5% COHB ?? Smokers: Variable ??but usually less than 10% ?? Toxic: 20-30% COHB ?? Lethal: Greater than 60% COHB Methemoglobin, Arterial 0.5 <=1.5 % 06/14/2024 12:48 PM EST [facility] Sodium, Arterial 135 135 - 145 mmol/L 06/14/2024 12:48 PM [facility] Potassium, Arterial 5.0 3.5 - 5.0 mmol/L 06/14/2024 12:48 PM EST [facility] Chloride, Arterial 106 98 - 107 mmol/L 06/14/2024 12:48 PM EST [facility] Lactate, Arterial 1.4 0.5 - 2.2 mmol/L 06/14/2024 12:48 PM EST [facility] IONIZED CALCIUM, ARTERIAL 1.09(L) 1.15 - 1.33 mmol/L 06/14/2024 12:48 PM EST [facility] Glucose, Arterial 157 65 - 199 mg/dL 06/14/2024 12:48 PM EST [facility] Comment:Glucose Concentratio n >=200 mg/dL plus symptoms is consistent with Diabetes Mellitus. Blood ARTERIAL BLOOD / Unknown 06/14/2024 12:47 PM EST 06/14/2024 12:48 PM EST Haja Byrnes MD POINT OF CARE TEST O RDERABLES [facility] [place] [address] * (ABNORMAL) Cooximetry, POC (06/14/2024 12:42 PM EST) pO2, Coox 71 mmHg 06/14/2024 12:45 PM [facility] Hemoglobin, Coox 11.6(L) 13.7 - 16.5 g/dL 06/14/2024 12:45 PM EST [facility] Oxyhemoglobin, Coox 91.5 % 06/14/2024 12:45 PM EST [facility] Carboxyhemoglo bin, Coox 0.3 % 06/14/2024 12:45 PM EST [facility] Comment: Nonsmokers: 0.5-1.5% COHB ?? Smokers: Variable ??but usually less than 10% ?? Toxic: 20-30% COHB ?? Lethal: Greater than 60% COHB Methemoglobin, Coox 0.4 <=1.5 % 06/14/2024 12:45 PM EST [facility] Blood (Mixed Venous) 06/14/2024 12:42 PM EST 06/14/2024 12:45 PM EST Haja Byrnes MD POINT OF CARE TEST O RDERABLES Performing Organization Address City/[facility]/ZIP Co de Phone Number [facility] [place] [address] * (ABNORMAL) Platelet count (06/14/2024 12:30 PM EST) Platelet 73(L) 145 - 357 x10(3)/mcL 06/14/2024 12:54 PM EST [facility] Blood ARTERIAL BLOOD / Unknown 06/14/2024 12:30 PM EST Comment:Pre-op diagnosis: CAD Bobby Loja MD HEMATOLOGY ORDERABLE S Performing Organization Address [facility] Co de Phone Number [facility] [place] [address] * (ABNORMAL) Hemoglobin and Hematocrit, blood (06/14/2024 12:30 PM EST) Hemoglobin 10.9(L) 13.7 - 16.5 g/dL 06/14/2024 12:54 PM EST [facility] Hematocrit 33.5(L) 40.5 - 48.5 % 06/14/2024 12:54 PM EST [facility] Comment:This result has been called to Danielle López by Satya Page on 06/14/2024 12:53:56, and has been read back. Blood ARTERIAL BLOOD / Unknown 06/14/2024 12:30 PM EST 06/14/2024 12:42 PM EST Comment:Pre-op diagnosis: CAD Bobby Loja MD HEMATOLOGY ORDERABLE S Performing Organization Address [facility]/ZIP Co de Phone Number [facility] [place] [address] * APTT (06/14/2024 12:30 PM EST) Partial Thromboplastin Time 31 25 - 37 sec 06/14/2024 12:57 PM EST [facility] Comment: The PTT is NOT appropriate for heparin monitoring. Use the Anti-Xa level for heparin monitoring (HEP UFH) or LMWH monitoring (HEP LMW). A PTT less than 37 seconds generally indicates adequate hemostasis. Blood ARTERIAL BLOOD / Unknown 06/14/2024 12:30 PM EST 06/14/2024 12:42 PM EST Comment:Pre-op diagnosis: CAD Bobby Loja MD HEMATOLOGY ORDERABLE S Performing Organization Address [facility] Co de Phone Number [facility] [place] [address] * (ABNORMAL) Prothrombin Time (06/14/2024 12:30 PM EST) Prothrombin Time 16.8(H) 9.4 - 12.5 sec 06/14/2024 12:57 PM EST [facility] International Normalization Ratio 1.5 <=4.9 06/14/2024 12:57 PM EST [facility] Comment: An INR < [...] MD HEMATOLOGY ORDERABLE S Performing Organization Address [facility] Co de Phone Number [facility] [place] [address] * Fibrinogen (06/14/2024 12:30 PM EST) Fibrinogen 211 200 - 393 mg/dL 06/14/2024 12:57 PM [facility] Comment: A fibrinogen level >100 mg/dL is adequate for hemostasis in most patients without underlying bleeding disorders. Blood ARTERIAL BLOOD / Unknown 06/14/2024 12:30 PM EST 06/14/2024 12:42 PM EST Comment:Pre-op diagnosis: CAD Bobby Loja MD HEMATOLOGY ORDERABLE S [facility] [place] [address] * (ABNORMAL) Blood Gas, Arterial POC (06/14/2024 12:15 PM EST) pH, Arterial 7.38 7.35 - 7.45 06/14/2024 12:16 PM [facility] PCO2, Arterial 40 35 - 45 mmHg 06/14/2024 12:16 PM [facility] Bicarbonate, Arterial 22.9 20.0 - 26.0 mmol/L 06/14/2024 12:16 PM [facility] Base Excess, Arterial -2.3 -3.0 - 3.0 mmol/L 06/14/2024 12:16 PM [facility] Hemoglobin, Arterial 11.4(L) 13.7 - 16.5 g/dL 06/14/2024 12:16 PM [facility] Oxyhemoglobin, Arterial 98.8(H) 94.0 - 97.0 % 06/14/2024 12:16 PM [facility] Carboxyhemoglobin , Arterial 0.3 % 06/14/2024 12:16 PM [facility] Comment: Nonsmokers: 0.5-1.5% COHB ?? Smokers: Variable ??but usually less than 10% ?? Toxic: 20-30% COHB ?? Lethal: Greater than 60% COHB Methemoglobin, Arterial 0.6 <=1.5 % 06/14/2024 12:16 PM [facility] Sodium, Arterial 134(L) 135 - 145 mmol/L 06/14/2024 12:16 PM [facility] Potassium, Arterial 5.4(H) 3.5 - 5.0 mmol/L 06/14/2024 12:16 PM [facility] Chloride, Arterial 105 98 - 107 mmol/L 06/14/2024 12:16 PM [facility] Lactate, Arterial 1.3 0.5 - 2.2 mmol/L 06/14/2024 12:16 PM [facility] IONIZED CALCIUM, ARTERIAL 1.08(L) 1.15 - 1.33 mmol/L 06/14/2024 12:16 PM [facility] Glucose, Arterial 161 65 - 199 mg/dL 06/14/2024 12:16 PM [facility] Comment:Glucose Concentratio n >=200 mg/dL plus symptoms is consistent with Diabetes Mellitus. Blood ARTERIAL BLOOD / Unknown 06/14/2024 12:15 PM EST 06/14/2024 12:16 PM EST Haja Byrnes MD POINT OF CARE TEST O RDERABLES [facility] [place] [address] * (ABNORMAL) Blood Gas, Arterial POC (06/14/2024 11:51 AM EST) pH, Arterial 7.40 7.35 - 7.45 06/14/2024 11:52 AM [facility] PCO2, Arterial 41 35 - 45 mmHg 06/14/2024 11:52 AM [facility] PO2, Arterial 332(H) 85 - 104 mmHg 06/14/2024 11:52 AM [facility] Bicarbonate, Arterial 24.7 20.0 - 26.0 mmol/L 06/14/2024 11:52 AM [facility] Base Excess, Arterial -0.1 -3.0 - 3.0 mmol/L 06/14/2024 11:52 AM [facility] Hemoglobin, Arterial 11.1(L) 13.7 - 16.5 g/dL 06/14/2024 11:52 AM [facility] Oxyhemoglobin, Arterial 98.7(H) 94.0 - 97.0 % 06/14/2024 11:52 AM [facility] Carboxyhemoglobin , Arterial 0.3 % 06/14/2024 11:52 AM [facility] Comment: Nonsmokers: 0.5-1.5% COHB ?? Smokers: Variable ??but usually less than 10% ?? Toxic: 20-30% COHB ?? Lethal: Greater than 60% COHB Methemoglobin, Arterial 0.4 <=1.5 % 06/14/2024 11:52 AM [facility] Sodium, Arterial 135 135 - 145 mmol/L 06/14/2024 11:52 AM [facility] Potassium, Arterial 5.7(H) 3.5 - 5.0 mmol/L 06/14/2024 11:52 AM [facility] Chloride, Arterial 105 98 - 107 mmol/L 06/14/2024 11:52 AM [facility] Lactate, Arterial 1.2 0.5 - 2.2 mmol/L 06/14/2024 11:52 AM [facility] IONIZED CALCIUM, ARTERIAL 1.10(L) 1.15 - 1.33 mmol/L 06/14/2024 11:52 AM [facility] Glucose, Arterial 148 65 - 199 mg/dL 06/14/2024 11:52 AM [facility] Comment:Glucose Concentratio n >=200 mg/dL plus symptoms is consistent with Diabetes Mellitus. Blood ARTERIAL BLOOD / Unknown 06/14/2024 11:51 AM EST 06/14/2024 11:52 AM EST Haja Byrnes MD POINT OF CARE TEST O RDERABLES [facility] [place] [address] * (ABNORMAL) Blood Gas, Arterial POC (06/14/2024 11:27 AM [facility]) pH, Arterial 7.38 7.35 - 7.45 06/14/2024 11:28 AM [facility] PCO2, Arterial 37 35 - 45 mmHg 06/14/2024 11:28 AM [facility] PO2, Arterial 348(H) 85 - 104 mmHg 06/14/2024 11:28 AM [facility] Bicarbonate, Arterial 21.1 20.0 - 26.0 mmol/L 06/14/2024 11:28 AM [facility] Base Excess, Arterial -4.1(L) -3.0 - 3.0 mmol/L 06/14/2024 11:28 AM [facility] Hemoglobin, Arterial 11.0(L) 13.7 - 16.5 g/dL 06/14/2024 11:28 AM [facility] Oxyhemoglobin, Arterial 98.7(H) 94.0 - 97.0 % 06/14/2024 11:28 AM [facility] Carboxyhemoglobin , Arterial 0.3 % 06/14/2024 11:28 AM [facility] Comment: Nonsmokers: 0.5-1.5% COHB ?? Smokers: Variable ??but usually less than 10% ?? Toxic: 20-30% COHB ?? Lethal: Greater than 60% COHB Methemoglobin, Arterial 0.4 <=1.5 % 06/14/2024 11:28 AM [facility] Sodium, Arterial 132(L) 135 - 145 mmol/L 06/14/2024 11:28 AM [facility] Potassium, Arterial 5.8(H) 3.5 - 5.0 mmol/L 06/14/2024 11:28 AM [facility] Chloride, Arterial 105 98 - 107 mmol/L 06/14/2024 11:28 AM [facility] Lactate, Arterial 1.1 0.5 - 2.2 mmol/L 06/14/2024 11:28 AM EST [facility] IONIZED CALCIUM, ARTERIAL 1.03(L) 1.15 - 1.33 mmol/L 06/14/2024 11:28 AM EST [facility] Glucose, Arterial 147 65 - 199 mg/dL 06/14/2024 11:28 AM EST [facility] Comment:Glucose Concentratio n >=200 mg/dL plus symptoms is consistent with Diabetes Mellitus. Blood ARTERIAL BLOOD / Unknown 06/14/2024 11:27 AM EST 06/14/2024 11:28 AM EST Haja Byrnes MD POINT OF CARE TEST O RDERABLES Performing Organization Address City/[facility]/ZIP Co de Phone Number [facility] [place] [address] * (ABNORMAL) Scan, Peripheral Blood (06/14/2024 11:23 AM EST) RBC Morphology Abnormal 06/14/2024 11:59 AM [facility] Platelet Estimate Decreased(A) Normal 06/14/2024 11:59 AM EST [facility] Aretha cells 1-5 /HPF 06/14/2024 11:59 AM [facility] Blood ARTERIAL BLOOD / Unknown 06/14/2024 11:23 AM EST 06/14/2024 11:27 AM EST Bobby oLja MD HEMATOLOGY ORDERABLE S [facility] [place] [address] * (ABNORMAL) Platelet count (06/14/2024 11:23 AM EST) Platelet 86(L) 145 - 357 x10(3)/mcL 06/14/2024 11:59 AM EST [facility] Blood ARTERIAL BLOOD / Unknown 06/14/2024 11:23 AM EST Comment:Pre-op diagnosis: CAD Bobby Loja MD HEMATOLOGY ORDERABLE S [facility] [place] [address] * (ABNORMAL) Hemoglobin and Hematocrit, blood (06/14/2024 11:23 AM EST) Hemoglobin 9.8(L) 13.7 - 16.5 g/dL 06/14/2024 11:59 AM EST [facility] Comment:This result has been called to Danielle López by Satya Page on 06/14/2024 11:58:33. Hematocrit 30.5(L) 40.5 - 48.5 % 06/14/2024 11:59 AM EST [facility] Comment:This result has been called to Danielle López by Satya Page on 06/14/2024 11:58:40, and has been read back. Blood ARTERIAL BLOOD / Unknown 06/14/2024 11:23 AM EST 06/14/2024 11:27 AM EST Comment:Pre-op diagnosis: CAD Bobby Loja MD HEMATOLOGY ORDERABLE S [facility] [place] [address] * (ABNORMAL) Blood Gas, Arterial POC (06/14/2024 10:58 AM EST) pH, Arterial 7.38 7.35 - 7.45 06/14/2024 10:59 AM EST [facility] PCO2, Arterial 43 35 - 45 mmHg 06/14/2024 10:59 AM EST [facility] PO2, Arterial 401(H) 85 - 104 mmHg 06/14/2024 10:59 AM EST [facility] Bicarbonate, Arterial 24.8 20.0 - 26.0 mmol/L 06/14/2024 10:59 AM EST [facility] Base Excess, Arterial -0.5 -3.0 - 3.0 mmol/L 06/14/2024 10:59 AM EST [facility] Hemoglobin, Arterial 11.9(L) 13.7 - 16.5 g/dL 06/14/2024 10:59 AM [facility] Oxyhemoglobin, Arterial 99.0(H) 94.0 - 97.0 % 06/14/2024 10:59 AM [facility] Carboxyhemoglobin , Arterial 0.3 % 06/14/2024 10:59 AM [facility] Comment: Nonsmokers: 0.5-1.5% COHB ?? Smokers: Variable ??but usually less than 10% ?? Toxic: 20-30% COHB ?? Lethal: Greater than 60% COHB Methemoglobin, Arterial 0.3 <=1.5 % 06/14/2024 10:59 AM [facility] Sodium, Arterial 128(L) 135 - 145 mmol/L 06/14/2024 10:59 AM [facility] Potassium, Arterial 6.6(HHH) 3.5 - 5.0 mmol/L 06/14/2024 10:59 AM [facility] Chloride, Arterial 99 98 - 107 mmol/L 06/14/2024 10:59 AM [facility] Lactate, Arterial 1.3 0.5 - 2.2 mmol/L 06/14/2024 10:59 AM [facility] IONIZED CALCIUM, ARTERIAL 1.00(L) 1.15 - 1.33 mmol/L 06/14/2024 10:59 AM [facility] Glucose, Arterial 155 65 - 199 mg/dL 06/14/2024 10:59 AM [facility] Comment:Glucose Concentratio n >=200 mg/dL plus symptoms is consistent with Diabetes Mellitus. Blood ARTERIAL BLOOD / Unknown 06/14/2024 10:58 AM EST 06/14/2024 10:59 AM EST Haja Byrnes MD POINT OF CARE TEST O RDERABLES [facility] [place] [address] * (ABNORMAL) Blood Gas, Arterial POC (06/14/2024 10:26 AM EST) pH, Arterial 7.29(LLL) 7.35 - 7.45 06/14/2024 10:27 AM [facility] PCO2, Arterial 43 35 - 45 mmHg 06/14/2024 10:27 AM [facility] PO2, Arterial 369(H) 85 - 104 mmHg 06/14/2024 10:27 AM [facility] Bicarbonate, Arterial 19.9(L) 20.0 - 26.0 mmol/L 06/14/2024 10:27 AM [facility] Base Excess, Arterial -6.7(L) -3.0 - 3.0 mmol/L 06/14/2024 10:27 AM [facility] Hemoglobin, Arterial 12.6(L) 13.7 - 16.5 g/dL 06/14/2024 10:27 AM [facility] Oxyhemoglobin, Arterial 99.1(H) 94.0 - 97.0 % 06/14/2024 10:27 AM [facility] Carboxyhemoglobin , Arterial 0.1 % 06/14/2024 10:27 AM [facility] [facility] Comment: Nonsmokers: 0.5-1.5% COHB ?? Smokers: Variable ??but usually less than 10% ?? Toxic: 20-30% COHB ?? Lethal: Greater than 60% COHB Methemoglobin, Arterial 0.4 <=1.5 % 06/14/2024 10:27 AM [facility] Sodium, Arterial 129(L) 135 - 145 mmol/L 06/14/2024 10:27 AM [facility] Potassium, Arterial 5.0 3.5 - 5.0 mmol/L 06/14/2024 10:27 AM [facility] Chloride, Arterial 99 98 - 107 mmol/L 06/14/2024 10:27 AM [facility] Lactate, Arterial 0.9 0.5 - 2.2 mmol/L 06/14/2024 10:27 AM [facility] IONIZED CALCIUM, ARTERIAL 1.05(L) 1.15 - 1.33 mmol/L 06/14/2024 10:27 AM [facility] Glucose, Arterial 149 65 - 199 mg/dL 06/14/2024 10:27 AM [facility] Comment:Glucose Concentratio n >=200 mg/dL plus symptoms is consistent with Diabetes Mellitus. Blood ARTERIAL BLOOD / Unknown 06/14/2024 10:26 AM EST 06/14/2024 10:27 AM EST Haja Byrnes MD POINT OF CARE TEST O RDERABLES [facility] [place] [address] * (ABNORMAL) Blood Gas, Arterial POC (06/14/2024 10:25 AM EST) pH, Arterial 7.26(LLL) 7.35 - 7.45 06/14/2024 10:26 AM [facility] PCO2, Arterial 48(H) 35 - 45 mmHg 06/14/2024 10:26 AM [facility] Bicarbonate, Arterial 21.2 20.0 - 26.0 mmol/L 06/14/2024 10:26 AM [facility] Base Excess, Arterial -5.8(L) -3.0 - 3.0 mmol/L 06/14/2024 10:26 AM [facility] Hemoglobin, Arterial 12.5(L) 13.7 - 16.5 g/dL 06/14/2024 10:26 AM [facility] Oxyhemoglobin, Arterial 82.3(L) 94.0 - 97.0 % 06/14/2024 10:26 AM [facility] Carboxyhemoglobin , Arterial 0.5 % 06/14/2024 10:26 AM [facility] Comment: Nonsmokers: 0.5-1.5% COHB ?? Smokers: Variable ??but usually less than 10% ?? Toxic: 20-30% COHB ?? Lethal: Greater than 60% COHB Methemoglobin, Arterial 0.5 <=1.5 % 06/14/2024 10:26 AM [facility] Sodium, Arterial 131(L) 135 - 145 mmol/L 06/14/2024 10:26 AM [facility] Potassium, Arterial 4.6 3.5 - 5.0 mmol/L 06/14/2024 10:26 AM [facility] Chloride, Arterial 103 98 - 107 mmol/L 06/14/2024 10:26 AM [facility] Lactate, Arterial 0.8 0.5 - 2.2 mmol/L 06/14/2024 10:26 AM [facility] IONIZED CALCIUM, ARTERIAL 0.91(LLL) 1.15 - 1.33 mmol/L 06/14/2024 10:26 AM [facility] Glucose, Arterial 148 65 - 199 mg/dL 06/14/2024 10:26 AM [facility] Comment:Glucose Concentratio n >=200 mg/dL plus symptoms is consistent with Diabetes Mellitus. Blood ARTERIAL BLOOD / Unknown 06/14/2024 10:25 AM EST 06/14/2024 10:26 AM EST Haja Byrnes MD POINT OF CARE TEST O RDERABLES Performing Organization Address City/State/[facility] Co de Phone Number [facility] [place] [address] * Surgical Pathology (06/14/2024 9:53 AM EST) Case Report Surgical Pathology Report ? Case: [id number] ? Authorizing Provider: ??Bobby Loja MD ? Collected: ? 06/14/2024 0953 ? Ordering Location: ? Main Operating Room [facility] ?? Received: ?06/14/2024 1413 ? [facility] ? Hospital ? Pathologist: ? Sandra Salas, MD ? Specimens: ?? A) - Soft Tissue Mass, mediastinal mass ? B) - Heart, Atrial Appendage, Left ? 06/18/2024 10:18 AM EST [facility] Final Diagnosis A. Soft Tissue Mass, Mediastinal Mass, Excision: - Atrophic thymic tissue B. Heart, Atrial Appendage, Left, Excision: - Mild myocyte hypertrophy 06/18/2024 10:18 AM [facility] Clinical Information A. Soft Tissue Mass, mediastinal mass Soft tissue mass Mediastinal mass B. Heart, Atrial Appendage, Left, *Other - as specified in Clinical Information MARIALUISA 06/18/2024 10:18 AM [facility] Gross Description A. Soft Tissue Mass, mediastinal mass. A - Labeled/Fixative : Mediastinal mass, fresh. Quantity/Size: Single, 7.2 x 5.3 x 1.2 cm. Tissue Description: Unoriented, intact portion of soft, rodriguez-yellow, lobulated tissue. The cut surface is homogenously pale-rodriguez, yellow and lobulated. No lesions or nodules are identified. Inking: External surface inked black Sections/Process ing: Bacteriology Research Assistant sections in 4 cassettes labeled A1-A4. cmk B. Heart, Atrial Appendage, Left, . B - Labeled/Fixative : Heart, atrial appendage, left, fresh. Quantity/Size: Single, 3.3 x 1.5 x 0.8 cm. Tissue Description: Portion of heart tissue consisting of rodriguez-white, semitranslucent, smooth endocardium with rodriguez-brown muscular myocardium and thin translucent epicardium with adherent adipose tissue. No areas of discoloration identified. Sections/Process ing: Bacteriology Research Assistant sections in 1 cassette labeled B1. cmk 06/18/2024 10:18 AM [facility] Result Note Routine 06/18/2024 10:18 AM [facility] Tissue SOFT TISSUE MASS / Unknown 06/14/2024 9:53 AM EST 06/14/2024 2:13 PM EST Comment:Mediastinal mass Tissue specimen (specimen) LEFT ATRIAL APPENDAGE ABSENT / Unknown 06/14/2024 10:54 AM EST 06/14/2024 2:13 PM EST Comment:MARIALUISA Bobby Loja MD PATHOLOGY/CYTOLOGY O RDERABLES [facility] [place] [address] * Cooximetry, POC (06/14/2024 9:00 AM EST) pO2, Coox 57 mmHg 06/14/2024 9:04 AM [facility] PO2 Corrected, COOX 50 mmHg 06/14/2024 9:04 AM [facility] Hemoglobin, Coox 14.3 13.7 - 16.5 g/dL 06/14/2024 9:04 AM [facility] Oxyhemoglobin, Coox 86.2 % 06/14/2024 9:04 AM [facility] Carboxyhemoglobi n, Coox 0.3 % 06/14/2024 9:04 AM [facility] Comment: Nonsmokers: 0.5-1.5% COHB ?? Smokers: Variable ??but usually less than 10% ?? Toxic: 20-30% COHB ?? Lethal: Greater than 60% COHB Methemoglobin, Coox 0.3 <=1.5 % 06/14/2024 9:04 AM [facility] Temperature Coox 35.2 C 06/14/20 24 9:04 AM [facility] Blood (Mixed Venous) 06/14/2024 9:00 AM EST 06/14/2024 9:04 AM EST Haja Byrnes MD POINT OF CARE TEST O RDERABLES Performing Organization Address City/State/[facility] Co de Phone Number [facility] [place] [address] * (ABNORMAL) Blood Gas, Arterial POC (06/14/2024 8:39 AM EST) pH, Arterial 7.37 7.35 - 7.45 06/14/2024 8:40 AM [facility] PCO2, Arterial 42 35 - 45 mmHg 06/14/2024 8:40 AM [facility] PO2, Arterial 341(H) 85 - 104 mmHg 06/14/2024 8:40 AM [facility] Bicarbonate, Arterial 23.7 20.0 - 26.0 mmol/L 06/14/2024 8:40 AM [facility] Base Excess, Arterial -1.6 -3.0 - 3.0 mmol/L 06/14/2024 8:40 AM [facility] Hemoglobin, Arterial 15.2 13.7 - 16.5 g/dL 06/14/2024 8:40 AM [facility] Oxyhemoglobin, Arterial 99.2(H) 94.0 - 97.0 % 06/14/2024 8:40 AM [facility] Carboxyhemoglobin , Arterial 0.1 % 06/14/2024 8:40 AM [facility] Comment: Nonsmokers: 0.5-1.5% COHB ?? Smokers: Variable ??but usually less than 10% ?? Toxic: 20-30% COHB ?? Lethal: Greater than 60% COHB Methemoglobin, Arterial 0.3 <=1.5 % 06/14/2024 8:40 AM [facility] Sodium, Arterial 136 135 - 145 mmol/L 06/14/2024 8:40 AM [facility] Potassium, Arterial 4.2 3.5 - 5.0 mmol/L 06/14/2024 8:40 AM [facility] Chloride, Arterial 102 98 - 107 mmol/L 06/14/2024 8:40 AM [facility] Lactate, Arterial 0.9 0.5 - 2.2 mmol/L 06/14/2024 8:40 AM [facility] IONIZED CALCIUM, ARTERIAL 1.17 1.15 - 1.33 mmol/L 06/14/2024 8:40 AM [facility] Glucose, Arterial 121 65 - 199 mg/dL 06/14/2024 8:40 AM [facility] Comment:Glucose Concentratio n >=200 mg/dL plus symptoms is consistent with Diabetes Mellitus. Blood ARTERIAL BLOOD / Unknown 06/14/2024 8:39 AM EST 06/14/2024 8:40 AM EST Haja Byrnes MD POINT OF CARE TEST O RDERABLES [facility] [place] [address] * Transesophageal Echo/OR (06/14/2024 7:20 AM EST) Anatomical Region Laterality Modality Cardiac Other 06/14/2024 7:20 AM EST Narrative 06/14/2024 4:36 PM EST Version: 2 Study ID: [id number] [address] [place] [address] ?OR Transesophageal Echo Report Name: GEORGE MEHTA ? Study Date: 06/14/2024, 7: 20 AM ?Patient Location: ^OR16^A : 1955 Age: 69 Years Gender: Male Ordering Physician: BOBBY LOJA Referring Physician: NEAHL QUINTERO ?Conclusions This KAREN is done at [...] of this mass after consultation with other math coach experts and the decision was made by [...] MD - 06/14/2024 Version: 2 Study ID: [id number] [address] [place] [id number] ORTransesophageal Echo Report Name: GEORGE MEHTA Study Date: 06/14/2024,7: 20 AM Patient Location:^LA16^A : 1955 Age: 69 Years Gender: Male [...] of this mass after consultation with other math coach experts and thedecision was made by surgeon [...] * POC, GLUCOSE (06/14/2024 7:11 AM EST) [facility] Signature Glucometer, POC 111 65 - 199 mg/dL 06/14/2024 7:12 AM EST [facility] Comment:Supplemental ranges: <140 mg/dL before meals <180 mg/dL all other times of the day. Blood CAPILLARY BLOOD / Unknown 06/14/2024 7:11 AM EST 06/14/2024 7:12 AM EST Haja Byrnes MD POINT OF CARE TEST Abimael MAHER Performing Organization Address [facility] Co de Phone Number [facility] [place] [address] * POC, GLUCOSE (06/14/2024 4:30 AM EST) Glucometer, POC 85 65 - 199 mg/dL 06/14/2024 4:30 AM EST [facility] Comment:Supplemental ranges: <140 mg/dL before meals <180 mg/dL all other times of the day. Blood CAPILLARY BLOOD / Unknown 06/14/2024 4:30 AM EST 06/14/2024 4:30 AM EST Haja Byrnes MD POINT OF CARE TEST Abimael MAHER Performing Organization Address [facility] de Phone Number [facility] [place] [address] * (ABNORMAL) Heparin (unfractionated) Level (06/14/2024 12:12 AM EST) UF Heparin 1.02(HHH) IU/mL 06/14/2024 12:46 AM EST [facility] Comment: Heparin (anti-Xa) levels [...] EST Shahnaz Scanlon MD HEMATOLOGY ORDERABLE S [facility] [place] [address] * (ABNORMAL) CBC (with Diff) (06/14/2024 12:12 AM EST) White Blood Cell 10.51(H) 4.00 - 9.50 x10(3)/mc L 06/14/2024 12:38 AM [facility] Red Blood Cell 4.99 4.58 - 5.54 x10(6)/mc L 06/14/2024 12:38 AM [facility] Hemoglobin 14.9 13.7 - 16.5 g/dL 06/14/2024 12:38 AM [facility] Hematocrit 45.9 40.5 - 48.5 % 06/14/2024 12:38 AM [facility] Mean Cell Volume 92.0 82.9 - 93.1 fL 06/14/2024 12:38 AM [facility] Mean Cell Hemoglobin 29.9 27.5 - 32.1 pg 06/14/2024 12:38 AM [facility] Mean Cell Hemoglobin Concentration 32.5 32.0 - 35.7 g/dL 06/14/2024 12:38 AM [facility] Platelet 162 145 - 357 x10(3)/mc L 06/14/2024 12:38 AM [facility] Mean Platelet Volume 10.1 7.6 - 12.9 fL 06/14/2024 12:38 AM [facility] RDW Standard Deviation 46.9(H) 36.0 - 45.0 fL 06/14/2024 12:38 AM [facility] RDW coefficient of variation 13.8 11.4 - 13.8 % 06/14/2024 12:38 AM [facility] NRBC% auto 0.0 % 06/14/2024 12:38 AM [facility] NRBC Absolute <0.01 <0.01 x10(3)/mc L 06/14/2024 12:38 AM [facility] Neutrophil % 56.7 % 06/14/2024 12:38 AM [facility] Neutrophil Absolute (ANC) - Automated 5.96 1.70 - 6.10 x10(3)/mc L 06/14/2024 12:38 AM [facility] Lymph % 26.8 % 06/14/2024 12:38 AM [facility] Lymph Absolute 2.82 0.90 - 3.20 x10(3)/mc L 06/14/2024 12:38 AM [facility] Monocyte % 11.2 % 06/14/2024 12:38 AM [facility] Monocyte Absolute 1.18(H) 0.30 - 0.90 x10(3)/mc L 06/14/2024 12:38 AM [facility] Eos % 3.9 % 06/14/2024 12:38 AM [facility] Eos Absolute 0.41(H) 0.00 - 0.40 x10(3)/mc L 06/14/2024 12:38 AM [facility] Basophil % 0.8 % 06/14/2024 12:38 AM [facility] Baso Absolute 0.08 0.00 - 0.10 x10(3)/mc L 06/14/2024 12:38 AM [facility] Immature Gran % 0.6 % 12:38 AM [facility] Immature Gran Absolute 0.06(H) 0.00 - 0.04 x10(3)/mc L 06/14/2024 12:38 AM [facility] Blood VENOUS BLOOD SPECIMEN / Unknown Venipuncture / Unknown 06/14/2024 12:12 AM EST 06/14/2024 12:29 AM EST Shahnaz Scanlon MD HEMATOLOGY ORDERABLE S Performing Organization Address City/[facility]/ZIP Co de Phone Number [facility] [place] [address] * Magnesium (06/14/2024 12:12 AM EST) Magnesium 0.74 0.69 - 1.07 mMol/L 06/14/2024 12:57 AM [facility] Blood VENOUS BLOOD SPECIMEN / Unknown Venipuncture / Unknown 06/14/2024 12:12 AM EST 06/14/2024 12:29 AM EST Shahnaz Scanlon MD CHEMISTRY ORDERABLES Performing Organization Address City/[facility]/ZIP Co de Phone Number [facility] [place] [address] * (ABNORMAL) Basic Metabolic Panel (06/14/2024 12:12 AM EST) Glucose 97 65 - 199 mg/dL 06/14/2024 12:57 AM [facility] Comment:Glucose Concentratio n >=200 mg/dL plus symptoms is consistent with Diabetes Mellitus. Blood Urea Nitrogen 25(H) 10 - 20 mg/dL 06/14/2024 12:57 AM [facility] Creatinine 1.14 0.80 - 1.50 mg/dL 06/14/2024 12:57 AM [facility] Sodium 135 135 - 145 mMol/L 06/14/2024 12:57 AM [facility] Potassium 4.1 3.5 - 5.0 mMol/L 06/14/2024 12:57 AM [facility] Chloride 100 98 - 107 mMol/L 06/14/2024 12:57 AM [facility] Carbon Dioxide 25 22 - 31 mMol/L 06/14/2024 12:57 AM [facility] Anion Gap 10 5 - 15 mMol/L 06/14/2024 12:57 AM [facility] Calcium 9.5 8.5 - 10.5 mg/dL 06/14/2024 12:57 AM [facility] Est Glomerular Filtration Rate - Male 70 mL/min/1. 73 m?? 06/14/2024 12:57 AM [facility] Comment: [...] AM EST Shahnaz Scanlon MD CHEMISTRY ORDERABLES [facility] [place] [address] * Scan Doc: Implantable Devices (06/14/2024 12:00 AM EST) Narrative 06/14/2024 12:00 AM EST Ordered by an unspecified provider. Scanning Provider MEDIA MGR SCAN EXT O RDR/RSLT * POC, GLUCOSE (06/13/2024 11:12 PM EST) [facility] Signature Glucometer, POC 104 65 - 199 mg/dL 06/13/2024 11:13 PM EST [facility] Comment:Supplemental ranges: <140 mg/dL before meals <180 mg/dL all other times of the day. Blood CAPILLARY BLOOD / Unknown 06/13/2024 11:12 PM EST 06/13/2024 11:13 PM EST Haja Byrnes MD POINT OF CARE TEST O NIKA Performing Organization Address City/[facility]/ZIP Co de Phone Number [facility] [place] [address] * (ABNORMAL) POC, GLUCOSE (06/13/2024 8:03 PM EST) Glucometer, POC 206(H) 65 - 199 mg/dL 06/13/2024 8:03 PM EST [facility] Comment:Supplemental ranges: <140 mg/dL before meals <180 mg/dL all other times of the day. Blood CAPILLARY BLOOD / Unknown 06/13/2024 8:03 PM EST 06/13/2024 8:03 PM EST Haja Byrnes MD POINT OF CARE TEST O NIKA Performing Organization Address City/[facility] Co de Phone Number [facility] [place] [address] * Heparin (unfractionated) Level (06/13/2024 4:11 PM EST) UF Heparin 0.76 IU/mL 06/13/2024 4:24 PM EST [facility] Comment: Heparin (anti-Xa) levels [...] MD HEMATOLOGY ORDERABLE S Performing Organization Address City/[facility]/ZIP Co de Phone Number [facility] [place] [address] * ABORH RECHECK (06/13/2024 4:11 PM EST) ABORH Recheck O POSITIVE 06/13/2024 4:50 PM EST [facility] Blood VENOUS BLOOD SPECIMEN / Unknown Venipuncture / Unknown 06/13/2024 4:11 PM EST 06/13/2024 4:19 PM EST Haja Byrnes MD BLOOD BANK LAB ORDER EUSEBIA Performing Organization Address [facility] Co de Phone Number [facility] [place] [address] * (ABNORMAL) POC, GLUCOSE (06/13/2024 4:09 PM EST) Glucometer, POC 216(H) 65 - 199 mg/dL 06/13/2024 4:10 PM EST [facility] Comment:Supplemental ranges: <140 mg/dL before meals <180 mg/dL all other times of the day. Blood CAPILLARY BLOOD / Unknown 06/13/2024 4:09 PM EST 06/13/2024 4:10 PM EST Haja Byrnes MD POINT OF CARE TEST O RDERABLES Performing Organization Address City/[facility]/ZIP Co de Phone Number [facility] [place] [address] * Type and screen ([facility]/CGP/RAFITA) (06/13/2024 11:53 AM EST) ABORH Type O POSITIVE 06/13/2024 1:16 PM EST [facility] PATIENT HISTORY Not Found 06/13/2024 1:16 PM EST [facility] Expires at [id number] on: 06/16/2024 06/13/2024 1:16 PM EST [facility] ANTIBODY SCREEN AUTOMATED Negative 06/13/2024 1:16 PM EST [facility] T&S only valid at [facility] 06/13/2024 1:16 PM EST [facility] Blood VENOUS BLOOD SPECIMEN / Unknown Venipuncture / Unknown 06/13/2024 11:53 AM EST 06/13/2024 11:56 AM EST Narrative [facility] - 06/13/2024 1:16 PM EST This Type and Screen result is only valid at the [facility] Haja Byrnes MD BLOOD BANK LAB ORDER EUSEBIA [facility] [place] [address] * POC, GLUCOSE (06/13/2024 11:50 AM EST) [facility] Glucometer, POC 178 65 - 199 mg/dL 06/13/2024 11:51 AM EST [facility] Comment:Supplemental ranges: <140 mg/dL before meals <180 mg/dL all other times of the day. Blood CAPILLARY BLOOD / Unknown 06/13/2024 11:50 AM EST 06/13/2024 11:51 AM EST Haja Byrnes MD POINT OF CARE TEST O RDERABLES [facility] [place] [address] * XR Chest One View (06/13/2024 10:35 AM EST) WORKSTATION ID [id number] RAD Anatomical Region Laterality Modality Chest N/A [...] who have questions please contact the health respiratory care instructor that requested your imaging first. ? Electronically signed by: Jyothi Simon MD, [facility] ([phone]), at 06/13/2024 10:43 AM Narrative 06/13/2024 10:43 [...] patients who have questions please contactthe health respiratory care instructor that requested your imaging first. Electronically signed by: Jyothi Simon MD, [facility]([phone]), at 06/13/2024 10:43 AM Haja Byrnes MD IMG DX ORDERABLES * CARDIAC CATHETERIZATION (06/13/2024 9:02 AM EST) Anatomical Region Laterality Modality Other Narrative 06/15/2024 9:07 AM EST ?[facility] ? Cardiac Catheterization/Intervention Report ? Patient Name: George Mehta ? Procedure Date: 06/13/2024 ? A #: [id number] ? Primary Physician: Nuha Shen I ? Case #: [id number] ? File Name: [id number] ? Catheterization Order Number: [id number] ? [facility] ? Final Report [place], [place] ? Patient Name: ? George L. Tyson ? ID#: ?[id number] ? : ?1955 ? Procedure Date: ? [...] ?was designated as ASA Class IV. The [facility] clinical frailty scale is 5: ?Mildly [...] procedure was Urgent. The indication for ?the senior laboratory technician visit is ACS greater than [...] angiography, vascular ?ultrasound and IABP insertion in senior laboratory technician. ? Nuha Shen M.D. ? Electronically Signed by: Nuha Shen M.D. ? Report Finalized: 06/15/2024 ??08:59 ? Procedure Note Nuha Shen MD - 06/15/2024 [facility] Cardiac Catheterization/Intervention Report Patient Name: George Mehta Procedure Date: 06/13/2024 A #: [id number] Primary Physician: Nuha Shen I Case #: [id number] File Name: [id number] Catheterization Order Number: [id number] [facility] FinalReport [place], [place] Patient Name: George Mehta ID#:[id number] :1955 Procedure Date: June 13, 2024 Case [...] was designated as ASA Class IV. The [facility] clinical frailty scale is5: Mildly Frail. [...] diagnostic procedure was Urgent. The indicationfor the senior laboratory technician visit is ACS greater than [...] site angiography,vascular ultrasound and IABP insertion in senior laboratory technician. Nuha Shen M.D. Electronically Signed by: Nuha Shen M.D. Report Finalized: 06/15/2024 08:59 Nuha Rojo MD CARDIAC CATH ORDERA BLES * Potassium (06/13/2024 7:48 AM EST) Potassium 4.5 3.5 - 5.0 mMol/L 06/13/2024 8:28 AM EST [facility] Blood VENOUS BLOOD SPECIMEN / Unknown Venipuncture / Unknown 06/13/2024 7:48 AM EST 06/13/2024 7:55 AM EST Shahnaz Scanlon MD CHEMISTRY ORDERABLES Performing Organization Address City/[facility]/ZIP Co de Phone Number [facility] [place] [address] * POC, GLUCOSE (06/13/2024 7:41 AM EST) Glucometer, POC 126 65 - 199 mg/dL 06/13/2024 7:41 AM EST [facility] Comment:Supplemental ranges: <140 mg/dL before meals <180 mg/dL all other times of the day. Blood CAPILLARY BLOOD / Unknown 06/13/2024 7:41 AM EST 06/13/2024 7:41 AM EST Ethel Carrillo MD POINT OF CARE TEST O RDERABLES Performing Organization Address City/[facility]/ZIP Co de Phone Number [facility] [place] [address] * POC, GLUCOSE (06/13/2024 3:25 AM EST) Glucometer, POC 99 65 - 199 mg/dL 06/13/2024 3:25 AM EST [facility] Comment:Supplemental ranges: <140 mg/dL before meals <180 mg/dL all other times of the day. Blood CAPILLARY BLOOD / Unknown 06/13/2024 3:25 AM EST 06/13/2024 3:25 AM EST Ethel Carrillo MD POINT OF CARE TEST O RDERABLES Performing Organization Address [facility] Co de Phone Number [facility] [place] [address] * Heparin (unfractionated) Level (06/13/2024 2:26 AM EST) UF Heparin 0.60 IU/mL 06/13/2024 3:32 AM EST [facility] Comment: Heparin (anti-Xa) levels [...] MD HEMATOLOGY ORDERABLE S Performing Organization Address [facility]/ZIP Co de Phone Number [facility] [place] [address] * (ABNORMAL) CBC (with Diff) (06/13/2024 2:26 AM EST) White Blood Cell 9.98(H) 4.00 - 9.50 x10(3)/mc L 06/13/2024 2:41 AM EST [facility] Red Blood Cell 5.11 4.58 - 5.54 x10(6)/mc L 06/13/2024 2:41 AM [facility] Hemoglobin 15.3 13.7 - 16.5 g/dL 06/13/2024 2:41 AM [facility] Hematocrit 47.1 40.5 - 48.5 % 06/13/2024 2:41 AM [facility] Mean Cell Volume 92.2 82.9 - 93.1 fL 06/13/2024 2:41 AM [facility] Mean Cell Hemoglobin 29.9 27.5 - 32.1 pg 06/13/2024 2:41 AM [facility] Mean Cell Hemoglobin Concentration 32.5 32.0 - 35.7 g/dL 06/13/2024 2:41 AM [facility] Platelet 194 145 - 357 x10(3)/mc L 06/13/2024 2:41 AM [facility] Mean Platelet Volume 9.7 7.6 - 12.9 fL 06/13/2024 2:41 AM [facility] RDW Standard Deviation 47.5(H) 36.0 - 45.0 fL 06/13/2024 2:41 AM [facility] RDW coefficient of variation 13.8 11.4 - 13.8 % 06/13/2024 2:41 AM [facility] NRBC% auto 0.0 % 06/13/2024 2:41 AM [facility] NRBC Absolute <0.01 <0.01 x10(3)/mc L 06/13/2024 2:41 AM [facility] Neutrophil % 48.8 % 06/13/2024 2:41 AM [facility] Neutrophil Absolute (ANC) - Automated 4.87 1.70 - 6.10 x10(3)/mc L 06/13/2024 2:41 AM [facility] Lymph % 35.3 % 06/13/2024 2:41 AM [facility] Lymph Absolute 3.52(H) 0.90 - 3.20 x10(3)/mc L 06/13/2024 2:41 AM EST [facility] Monocyte % 10.1 % 06/13/2024 2:41 AM [facility] Monocyte Absolute 1.01(H) 0.30 - 0.90 x10(3)/mc L 06/13/2024 2:41 AM [facility] Eos % 4.4 % 06/13/2024 2:41 AM [facility] Eos Absolute 0.44(H) 0.00 - 0.40 x10(3)/mc L 06/13/2024 2:41 AM [facility] Basophil % 0.9 % 06/13/2024 2:41 AM [facility] Baso Absolute 0.09 0.00 - 0.10 x10(3)/mc L 06/13/2024 2:41 AM [facility] Immature Gran % 0.5 % 2:41 AM [facility] Immature Gran Absolute 0.05(H) 0.00 - 0.04 x10(3)/mc L 06/13/2024 2:41 AM [facility] Blood VENOUS BLOOD SPECIMEN / Unknown Venipuncture / Unknown 06/13/2024 2:26 AM EST 06/13/2024 2:32 AM EST Shahnaz Scanlon MD HEMATOLOGY ORDERABLE S [facility] [place] [address] * Magnesium (06/13/2024 2:26 AM EST) Magnesium 0.78 0.69 - 1.07 mMol/L 06/13/2024 2:58 AM EST [facility] Blood VENOUS BLOOD SPECIMEN / Unknown Venipuncture / Unknown 06/13/2024 2:26 AM EST 06/13/2024 2:31 AM EST Shahnaz Scanlon MD CHEMISTRY ORDERABLES [facility] [place] [address] * (ABNORMAL) Basic Metabolic Panel (06/13/2024 2:26 AM EST) Glucose 121 65 - 199 mg/dL 06/13/2024 2:58 AM EST [facility] Comment:Glucose Concentratio n >=200 mg/dL plus symptoms is consistent with Diabetes Mellitus. Blood Urea Nitrogen 21(H) 10 - 20 mg/dL 06/13/2024 2:58 AM [facility] Creatinine 1.07 0.80 - 1.50 mg/dL 06/13/2024 2:58 AM [facility] Sodium 136 135 - 145 mMol/L 06/13/2024 2:58 AM [facility] Potassium 3.9 3.5 - 5.0 mMol/L 06/13/2024 2:58 AM [facility] Chloride 99 98 - 107 mMol/L 06/13/2024 2:58 AM [facility] Carbon Dioxide 27 22 - 31 mMol/L 06/13/2024 2:58 AM [facility] Anion Gap 10 5 - 15 mMol/L 06/13/2024 2:58 AM [facility] Calcium 9.7 8.5 - 10.5 mg/dL 06/13/2024 2:58 AM [facility] Est Glomerular Filtration Rate - Male 76 mL/min/1. 73 m?? 06/13/2024 2:58 AM [facility] Comment: [...] Scanlon MD CHEMISTRY ORDERABLES Performing Organization Address [facility]/ZIP Co de Phone Number [facility] [place] [address] * POC, GLUCOSE (06/12/2024 11:53 PM EST) Glucometer, POC 141 65 - 199 mg/dL 06/12/2024 11:54 PM EST [facility] Comment:Supplemental ranges: <140 mg/dL before meals <180 mg/dL all other times of the day. Blood CAPILLARY BLOOD / Unknown 06/12/2024 11:53 PM EST 06/12/2024 11:54 PM EST Ethel Carrillo MD POINT OF CARE TEST O RDERABLES Performing Organization Address [facility] Co de Phone Number [facility] [place] [address] * POC, GLUCOSE (06/12/2024 7:32 PM EST) Glucometer, POC 158 65 - 199 mg/dL 06/12/2024 7:32 PM EST [facility] Comment:Supplemental ranges: <140 mg/dL before meals <180 mg/dL all other times of the day. Blood CAPILLARY BLOOD / Unknown 06/12/2024 7:32 PM EST 06/12/2024 7:32 PM EST Ethel Carrillo MD POINT OF CARE TEST O RDERABLES Performing Organization Address City/[facility]/ZIP Co de Phone Number [facility] [place] [address] * POC, GLUCOSE (06/12/2024 3:41 PM EST) Glucometer, POC 113 65 - 199 mg/dL 06/12/2024 3:41 PM EST [facility] Comment:Supplemental ranges: <140 mg/dL before meals <180 mg/dL all other times of the day. Blood CAPILLARY BLOOD / Unknown 06/12/2024 3:41 PM EST 06/12/2024 3:41 PM EST Ethel Carrillo MD POINT OF CARE TEST O RDERAPIETER Performing Organization Address City/[facility]/ZIP Co de Phone Number [facility] [place] [address] * Potassium (06/12/2024 2:19 PM EST) Potassium 4.5 3.5 - 5.0 mMol/L 06/12/2024 2:45 PM EST [facility] Blood VENOUS BLOOD SPECIMEN / Unknown Venipuncture / Unknown 06/12/2024 2:19 PM EST 06/12/2024 2:23 PM EST Shahnaz Scanlon MD CHEMISTRY ORDERABLES Performing Organization Address [facility] Co de Phone Number [facility] [place] [address] * (ABNORMAL) POC, GLUCOSE (06/12/2024 11:21 AM EST) Glucometer, POC 207(H) 65 - 199 mg/dL 06/12/2024 11:21 AM EST [facility] Comment:Supplemental ranges: <140 mg/dL before meals <180 mg/dL all other times of the day. Blood CAPILLARY BLOOD / Unknown 06/12/2024 11:21 AM EST 06/12/2024 11:22 AM EST Ethel Carrillo MD POINT OF CARE TEST O RDERABLES Performing Organization Address City/[facility]/ZIP Co de Phone Number [facility] [place] [address] * POC, GLUCOSE (06/12/2024 8:00 AM EST) Glucometer, POC 169 65 - 199 mg/dL 06/12/2024 8:01 AM EST [facility] Comment:Supplemental ranges: <140 mg/dL before meals <180 mg/dL all other times of the day. Blood CAPILLARY BLOOD / Unknown 06/12/2024 8:00 AM EST 06/12/2024 8:01 AM EST Ethel Carrillo MD POINT OF CARE TEST O NIKA Performing Organization Address City/[facility]/ZIP Co de Phone Number [facility] [place] [address] * POC, GLUCOSE (06/12/2024 4:25 AM EST) Glucometer, POC 132 65 - 199 mg/dL 06/12/2024 4:26 AM EST [facility] Comment:Supplemental ranges: <140 mg/dL before meals <180 mg/dL all other times of the day. Blood CAPILLARY BLOOD / Unknown 06/12/2024 4:25 AM EST 06/12/2024 4:26 AM EST Ethel Carrillo MD POINT OF CARE TEST Abimael MAEHR Performing Organization Address City/[facility]/ZIP Co de Phone Number [facility] [place] [address] * Heparin (unfractionated) Level (06/12/2024 3:03 AM EST) UF Heparin 0.55 IU/mL 06/12/2024 3:44 AM EST [facility] Comment: Heparin (anti-Xa) levels [...] EST Shahnaz Scanlon MD HEMATOLOGY ORDERABLE S [facility] [place] [address] * (ABNORMAL) CBC (with Diff) (06/12/2024 3:03 AM EST) White Blood Cell 9.69(H) 4.00 - 9.50 x10(3)/mc L 06/12/2024 3:36 AM [facility] Red Blood Cell 5.05 4.58 - 5.54 x10(6)/mc L 06/12/2024 3:36 AM [facility] Hemoglobin 15.2 13.7 - 16.5 g/dL 06/12/2024 3:36 AM [facility] Hematocrit 46.6 40.5 - 48.5 % 06/12/2024 3:36 AM [facility] Mean Cell Volume 92.3 82.9 - 93.1 fL 06/12/2024 3:36 AM [facility] Mean Cell Hemoglobin 30.1 27.5 - 32.1 pg 06/12/2024 3:36 AM [facility] Mean Cell Hemoglobin Concentration 32.6 32.0 - 35.7 g/dL 06/12/2024 3:36 AM [facility] Platelet 194 145 - 357 x10(3)/mc L 06/12/2024 3:36 AM [facility] Mean Platelet Volume 10.1 7.6 - 12.9 fL 06/12/2024 3:36 AM [facility] RDW Standard Deviation 47.7(H) 36.0 - 45.0 fL 06/12/2024 3:36 AM [facility] RDW coefficient of variation 14.0(H) 11.4 - 13.8 % 06/12/2024 3:36 AM [facility] NRBC% auto 0.0 % 06/12/2024 3:36 AM [facility] NRBC Absolute <0.01 <0.01 x10(3)/mc L 06/12/2024 3:36 AM [facility] Neutrophil % 49.9 % 06/12/2024 3:36 AM [facility] Neutrophil Absolute (ANC) - Automated 4.82 1.70 - 6.10 x10(3)/mc L 06/12/2024 3:36 AM [facility] Lymph % 33.5 % 06/12/2024 3:36 AM [facility] Lymph Absolute 3.25(H) 0.90 - 3.20 x10(3)/mc L 06/12/2024 3:36 AM [facility] Monocyte % 11.1 % 06/12/2024 3:36 AM [facility] Monocyte Absolute 1.08(H) 0.30 - 0.90 x10(3)/mc L 06/12/2024 3:36 AM [facility] Eos % 4.1 % 06/12/2024 3:36 AM [facility] Eos Absolute 0.40 0.00 - 0.40 x10(3)/mc L 06/12/2024 3:36 AM [facility] Basophil % 0.8 % 06/12/2024 3:36 AM [facility] Baso Absolute 0.08 0.00 - 0.10 x10(3)/mc L 06/12/2024 3:36 AM [facility] Immature Gran % 0.6 % 3:36 AM [facility] Immature Gran Absolute 0.06(H) 0.00 - 0.04 x10(3)/mc L 06/12/2024 3:36 AM [facility] Blood VENOUS BLOOD SPECIMEN / Unknown Venipuncture / Unknown 06/12/2024 3:03 AM EST 06/12/2024 3:30 AM EST Shahnaz Scanlon MD HEMATOLOGY ORDERABLE S Performing Organization Address [facility]/ZIP Co de Phone Number [facility] [place] [address] * Magnesium (06/12/2024 3:03 AM EST) Magnesium 0.79 0.69 - 1.07 mMol/L 06/12/2024 4:01 AM [facility] Blood VENOUS BLOOD SPECIMEN / Unknown Venipuncture / Unknown 06/12/2024 3:03 AM EST 06/12/2024 3:30 AM EST Shahnaz Scanlon MD CHEMISTRY ORDERABLES Performing Organization Address City/[facility] Co de Phone Number [facility] [place] [address] * (ABNORMAL) Basic Metabolic Panel (06/12/2024 3:03 AM EST) Glucose 132 65 - 199 mg/dL 06/12/2024 4:01 AM [facility] Comment:Glucose Concentratio n >=200 mg/dL plus symptoms is consistent with Diabetes Mellitus. Blood Urea Nitrogen 23(H) 10 - 20 mg/dL 06/12/2024 4:01 AM [facility] Creatinine 1.15 0.80 - 1.50 mg/dL 06/12/2024 4:01 AM [facility] Sodium 138 135 - 145 mMol/L 06/12/2024 4:01 AM [facility] Potassium 3.8 3.5 - 5.0 mMol/L 06/12/2024 4:01 AM [facility] Chloride 98 98 - 107 mMol/L 06/12/2024 4:01 AM [facility] Carbon Dioxide 29 22 - 31 mMol/L 06/12/2024 4:01 AM [facility] Anion Gap 11 5 - 15 mMol/L 06/12/2024 4:01 AM [facility] Calcium 9.5 8.5 - 10.5 mg/dL 06/12/2024 4:01 AM [facility] Est Glomerular Filtration Rate - Male 70 mL/min/1. 73 m?? 06/12/2024 4:01 AM [facility] Comment: [...] AM EST Shahnaz Scanlon MD CHEMISTRY ORDERABLES [facility] [place] [address] * POC, GLUCOSE (06/11/2024 11:56 PM EST) Glucometer, POC 135 65 - 199 mg/dL 06/11/2024 11:56 PM [facility] Comment:Supplemental ranges: <140 mg/dL before meals <180 mg/dL all other times of the day. Blood CAPILLARY BLOOD / Unknown 06/11/2024 11:56 PM EST 06/11/2024 11:56 PM EST Ethel Carrillo MD POINT OF CARE TEST O NIKA Performing Organization Address [facility] Co de Phone Number [facility] [place] [address] * (ABNORMAL) POC, GLUCOSE (06/11/2024 8:25 PM EST) Glucometer, POC 210(H) 65 - 199 mg/dL 06/11/2024 8:26 PM EST [facility] Comment:Supplemental ranges: <140 mg/dL before meals <180 mg/dL all other times of the day. Blood CAPILLARY BLOOD / Unknown 06/11/2024 8:25 PM EST 06/11/2024 8:26 PM EST Ethel Carrillo MD POINT OF CARE TEST O NIKA Performing Organization Address [facility] Co de Phone Number [facility] [place] [address] * POC, GLUCOSE (06/11/2024 4:24 PM EST) Glucometer, POC 81 65 - 199 mg/dL 06/11/2024 4:24 PM EST [facility] Comment:Supplemental ranges: <140 mg/dL before meals <180 mg/dL all other times of the day. Blood CAPILLARY BLOOD / Unknown 06/11/2024 4:24 PM EST 06/11/2024 4:25 PM EST Ethel Carrillo MD POINT OF CARE TEST O NIKA Performing Organization Address [facility] Co de Phone Number [facility] [place] [address] * (ABNORMAL) POC, GLUCOSE (06/11/2024 11:08 AM EST) Glucometer, POC 233(H) 65 - 199 mg/dL 06/11/2024 11:08 AM EST [facility] Comment:Supplemental ranges: <140 mg/dL before meals <180 mg/dL all other times of the day. Blood CAPILLARY BLOOD / Unknown 06/11/2024 11:08 AM EST 06/11/2024 11:08 AM EST Ethel Carrillo MD POINT OF CARE TEST O INKA Performing Organization Address [facility] Co de Phone Number [facility] [place] [address] * POC, GLUCOSE (06/11/2024 7:48 AM EST) Glucometer, POC 184 65 - 199 mg/dL 06/11/2024 7:49 AM EST [facility] Comment:Supplemental ranges: <140 mg/dL before meals <180 mg/dL all other times of the day. Blood CAPILLARY BLOOD / Unknown 06/11/2024 7:48 AM EST 06/11/2024 7:49 AM EST Melida Valdes MD POINT OF CARE TEST Abimael MAHER Performing Organization Address [facility] de Phone Number [facility] [place] [address] * Heparin (unfractionated) Level (06/11/2024 5:31 AM EST) UF Heparin 0.55 IU/mL 06/11/2024 6:10 AM EST [facility] Comment: Heparin (anti-Xa) levels [...] MD HEMATOLOGY ORDERABLE S Performing Organization Address City/[facility]/ZIP Co de Phone Number [facility] [place] [address] * POC, GLUCOSE (06/11/2024 3:57 AM EST) Glucometer, POC 132 65 - 199 mg/dL 06/11/2024 3:58 AM EST [facility] Comment:Supplemental ranges: <140 mg/dL before meals <180 mg/dL all other times of the day. Blood CAPILLARY BLOOD / Unknown 06/11/2024 3:57 AM EST 06/11/2024 3:58 AM EST Melida Valdes MD POINT OF CARE TEST O RDERABLES Performing Organization Address [facility] Co de Phone Number [facility] [place] [address] * (ABNORMAL) CBC (with Diff) (06/11/2024 2:13 AM EST) White Blood Cell 9.91(H) 4.00 - 9.50 x10(3)/mc L 06/11/2024 2:26 AM EST [facility] Red Blood Cell 5.13 4.58 - 5.54 x10(6)/mc L 06/11/2024 2:26 AM EST [facility] Hemoglobin 15.3 13.7 - 16.5 g/dL 06/11/2024 2:26 AM EST [facility] Hematocrit 47.5 40.5 - 48.5 % 06/11/2024 2:26 AM EST [facility] Mean Cell Volume 92.6 82.9 - 93.1 fL 06/11/2024 2:26 AM [facility] Mean Cell Hemoglobin 29.8 27.5 - 32.1 pg 06/11/2024 2:26 AM [facility] Mean Cell Hemoglobin Concentration 32.2 32.0 - 35.7 g/dL 06/11/2024 2:26 AM [facility] Platelet 184 145 - 357 x10(3)/mc L 06/11/2024 2:26 AM [facility] Mean Platelet Volume 9.7 7.6 - 12.9 fL 06/11/2024 2:26 AM [facility] RDW Standard Deviation 48.0(H) 36.0 - 45.0 fL 06/11/2024 2:26 AM [facility] RDW coefficient of variation 14.0(H) 11.4 - 13.8 % 06/11/2024 2:26 AM [facility] NRBC% auto 0.0 % 06/11/2024 2:26 AM [facility] NRBC Absolute <0.01 <0.01 x10(3)/mc L 06/11/2024 2:26 AM [facility] Neutrophil % 50.3 % 06/11/2024 2:26 AM [facility] Neutrophil Absolute (ANC) - Automated 4.98 1.70 - 6.10 x10(3)/mc L 06/11/2024 2:26 AM [facility] Lymph % 33.5 % 06/11/2024 2:26 AM [facility] Lymph Absolute 3.32(H) 0.90 - 3.20 x10(3)/mc L 06/11/2024 2:26 AM [facility] Monocyte % 10.9 % 06/11/2024 2:26 AM [facility] Monocyte Absolute 1.08(H) 0.30 - 0.90 x10(3)/mc L 06/11/2024 2:26 AM EST [facility] Eos % 4.1 % 06/11/2024 2:26 AM [facility] Eos Absolute 0.41(H) 0.00 - 0.40 x10(3)/mc L 06/11/2024 2:26 AM [facility] Basophil % 0.7 % 06/11/2024 2:26 AM [facility] Baso Absolute 0.07 0.00 - 0.10 x10(3)/mc L 06/11/2024 2:26 AM [facility] Immature Gran % 0.5 % 2:26 AM [facility] Immature Gran Absolute 0.05(H) 0.00 - 0.04 x10(3)/mc L 06/11/2024 2:26 AM [facility] Blood VENOUS BLOOD SPECIMEN / Unknown Venipuncture / Unknown 06/11/2024 2:13 AM EST 06/11/2024 2:19 AM EST Shahnaz Scanlon MD HEMATOLOGY ORDERABLE S [facility] [place] [address] * Magnesium (06/11/2024 2:13 AM EST) Magnesium 0.83 0.69 - 1.07 mMol/L 06/11/2024 2:51 AM EST [facility] Blood VENOUS BLOOD SPECIMEN / Unknown Venipuncture / Unknown 06/11/2024 2:13 AM EST 06/11/2024 2:19 AM EST Shahnaz Scanlon MD CHEMISTRY ORDERABLES [facility] [place] [address] * (ABNORMAL) Basic Metabolic Panel (06/11/2024 2:13 AM EST) Glucose 148 65 - 199 mg/dL 06/11/2024 2:51 AM [facility] Comment:Glucose Concentratio n >=200 mg/dL plus symptoms is consistent with Diabetes Mellitus. Blood Urea Nitrogen 24(H) 10 - 20 mg/dL 06/11/2024 2:51 AM [facility] Creatinine 1.06 0.80 - 1.50 mg/dL 06/11/2024 2:51 AM [facility] Sodium 134(L) 135 - 145 mMol/L 06/11/2024 2:51 AM [facility] Potassium 4.1 3.5 - 5.0 mMol/L 06/11/2024 2:51 AM [facility] Chloride 96(L) 98 - 107 mMol/L 06/11/2024 2:51 AM [facility] Carbon Dioxide 28 22 - 31 mMol/L 06/11/2024 2:51 AM [facility] Anion Gap 10 5 - 15 mMol/L 06/11/2024 2:51 AM [facility] Calcium 9.4 8.5 - 10.5 mg/dL 06/11/2024 2:51 AM [facility] Est Glomerular Filtration Rate - Male 77 mL/min/1. 73 m?? 06/11/2024 2:51 AM [facility] Comment: [...] Scanlon MD CHEMISTRY ORDERABLES Performing Organization Address [facility] Co de Phone Number [facility] [place] [address] * POC, GLUCOSE (06/11/2024 12:50 AM EST) Glucometer, POC 144 65 - 199 mg/dL 06/11/2024 12:51 AM EST [facility] Comment:Supplemental ranges: <140 mg/dL before meals <180 mg/dL all other times of the day. Blood CAPILLARY BLOOD / Unknown 06/11/2024 12:50 AM EST 06/11/2024 12:51 AM EST Melida Valdes MD POINT OF CARE TEST O RDBECKIE Performing Organization Address [facility] Co de Phone Number [facility] [place] [address] * (ABNORMAL) POC, GLUCOSE (06/10/2024 7:22 PM EST) Glucometer, POC 236(H) 65 - 199 mg/dL 06/10/2024 7:22 PM EST [facility] Comment:Supplemental ranges: <140 mg/dL before meals <180 mg/dL all other times of the day. Blood CAPILLARY BLOOD / Unknown 06/10/2024 7:22 PM EST 06/10/2024 7:22 PM EST Melida Valdes MD POINT OF CARE TEST O NIKA Performing Organization Address City/[facility]/ZIP Co de Phone Number [facility] [place] [address] * (ABNORMAL) Blood Gas, Venous (06/10/2024 5:42 PM EST) pH, Venous 7.34 7.32 - 7.42 06/10/2024 5:50 PM EST [facility] PCO2, Venous 52 38 - 58 mmHg 06/10/2024 5:50 PM EST [facility] PO2, Venous 24 16 - 65 mmHg 06/10/2024 5:50 PM [facility] Bicarbonate, Venous 27.4 22 - 31 mmol/L 06/10/2024 5:50 PM [facility] Base Excess, Venous 1.7(L) 1.9 - 4.5 mmol/L 06/10/2024 5:50 PM [facility] Hemoglobin, Venous 16.8(H) 13.7 - 16.5 g/dL 06/10/2024 5:50 PM [facility] Oxyhemoglobin, Venous 39.0 % 06/10/2024 5:50 PM [facility] Carboxyhemoglobin , Venous 0.3 % 06/10/2024 5:50 PM [facility] Comment: Nonsmokers: 0.5-1.5% COHB ?? Smokers: Variable ??but usually less than 10% ?? Toxic: 20-30% COHB ?? Lethal: Greater than 60% COHB Methemoglobin, Venous 0.5 <=1.5 % 06/10/2024 5:50 PM [facility] Sodium, Venous 137 135 - 145 mmol/L 06/10/2024 5:50 PM [facility] Chloride, Venous 96(L) 98 - 107 mmol/L 06/10/2024 5:50 PM [facility] Potassium, Venous 4.6 3.5 - 5.0 mmol/L 06/10/2024 5:50 PM [facility] Ionized Calcium, Venous 1.23 1.15 - 1.33 mmol/L 06/10/2024 5:50 PM [facility] Glucose, Venous 114 65 - 199 mg/dL 06/10/2024 5:50 PM [facility] Comment:Glucose Concentratio n >=200 mg/dL plus symptoms is consistent with Diabetes Mellitus. Lactate, Venous 1.1 0.5 - 2.2 mmol/L 06/10/2024 5:50 PM [facility] Blood Gas Source Venous 06/10/20 5:50 PM EST [facility] Blood VENOUS BLOOD SPECIMEN / Unknown Blood Gas Venous / Unknown 06/10/2024 5:42 PM EST 06/10/2024 5:47 PM EST Melida Valdes MD CHEMISTRY ORDERABLES Performing Organization Address City/[facility]/ZIP Co de Phone Number [facility] [place] [address] * POC, GLUCOSE (06/10/2024 5:35 PM EST) Glucometer, POC 123 65 - 199 mg/dL 06/10/2024 5:35 PM EST [facility] Comment:Supplemental ranges: <140 mg/dL before meals <180 mg/dL all other times of the day. Blood CAPILLARY BLOOD / Unknown 06/10/2024 5:35 PM EST 06/10/2024 5:35 PM EST Melida Valdes MD POINT OF CARE TEST O RDERABLES Performing Organization Address [facility] Co de Phone Number [facility] [place] [address] * (ABNORMAL) POC, GLUCOSE (06/10/2024 11:25 AM EST) Glucometer, POC 216(H) 65 - 199 mg/dL 06/10/2024 11:25 AM EST [facility] Comment:Supplemental ranges: <140 mg/dL before meals <180 mg/dL all other times of the day. Blood CAPILLARY BLOOD / Unknown 06/10/2024 11:25 AM EST 06/10/2024 11:25 AM EST Melida Valdes MD POINT OF CARE TEST O RDERAPIETER Performing Organization Address City/[facility]/ZIP Co de Phone Number [facility] [place] [address] * (ABNORMAL) POC, GLUCOSE (06/10/2024 7:46 AM EST) Glucometer, POC 206(H) 65 - 199 mg/dL 06/10/2024 7:46 AM EST [facility] Comment:Supplemental ranges: <140 mg/dL before meals <180 mg/dL all other times of the day. Blood CAPILLARY BLOOD / Unknown 06/10/2024 7:46 AM EST 06/10/2024 7:46 AM EST Melida Valdes MD POINT OF CARE TEST O NIKA Performing Organization Address [facility] Co de Phone Number [facility] [place] [address] * POC, GLUCOSE (06/10/2024 4:23 AM EST) Glucometer, POC 154 65 - 199 mg/dL 06/10/2024 4:24 AM EST [facility] Comment:Supplemental ranges: <140 mg/dL before meals <180 mg/dL all other times of the day. Blood CAPILLARY BLOOD / Unknown 06/10/2024 4:23 AM EST 06/10/2024 4:24 AM EST Melida Valdes MD POINT OF CARE TEST Abimael MAHER Performing Organization Address [facility] Co de Phone Number [facility] [place] [address] * (ABNORMAL) CBC (with Diff) (06/10/2024 1:55 AM EST) Pathologist [facility] White Blood Cell 9.00 4.00 - 9.50 x10(3)/mc L 06/10/2024 2:14 AM EST [facility] Red Blood Cell 5.03 4.58 - 5.54 x10(6)/mc L 06/10/2024 2:14 AM EST [facility] Hemoglobin 14.9 13.7 - 16.5 g/dL 06/10/2024 2:14 AM EST [facility] Hematocrit 46.4 40.5 - 48.5 % 06/10/2024 2:14 AM [facility] Mean Cell Volume 92.2 82.9 - 93.1 fL 06/10/2024 2:14 AM [facility] Mean Cell Hemoglobin 29.6 27.5 - 32.1 pg 06/10/2024 2:14 AM [facility] Mean Cell Hemoglobin Concentration 32.1 32.0 - 35.7 g/dL 06/10/2024 2:14 AM [facility] Platelet 191 145 - 357 x10(3)/mc L 06/10/2024 2:14 AM [facility] Mean Platelet Volume 9.7 7.6 - 12.9 fL 06/10/2024 2:14 AM [facility] RDW Standard Deviation 47.4(H) 36.0 - 45.0 fL 06/10/2024 2:14 AM [facility] RDW coefficient of variation 14.1(H) 11.4 - 13.8 % 06/10/2024 2:14 AM [facility] NRBC% auto 0.0 % 06/10/2024 2:14 AM [facility] NRBC Absolute <0.01 <0.01 x10(3)/mc L 06/10/2024 2:14 AM [facility] Neutrophil % 48.7 % 06/10/2024 2:14 AM [facility] Neutrophil Absolute (ANC) - Automated 4.39 1.70 - 6.10 x10(3)/mc L 06/10/2024 2:14 AM [facility] Lymph % 34.9 % 06/10/2024 2:14 AM [facility] Lymph Absolute 3.14 0.90 - 3.20 x10(3)/mc L 06/10/2024 2:14 AM [facility] Monocyte % 11.2 % 06/10/2024 2:14 AM [facility] Monocyte Absolute 1.01(H) 0.30 - 0.90 x10(3)/mc L 06/10/2024 2:14 AM EST [facility] Eos % 3.6 % 06/10/2024 2:14 AM EST [facility] Eos Absolute 0.32 0.00 - 0.40 x10(3)/mc L 06/10/2024 2:14 AM EST [facility] Basophil % 1.0 % 06/10/2024 2:14 AM [facility] Baso Absolute 0.09 0.00 - 0.10 x10(3)/mc L 06/10/2024 2:14 AM EST [facility] Immature Gran % 0.6 % 2:14 AM [facility] Immature Gran Absolute 0.05(H) 0.00 - 0.04 x10(3)/mc L 06/10/2024 2:14 AM [facility] Blood VENOUS BLOOD SPECIMEN / Unknown Venipuncture / Unknown 06/10/2024 1:55 AM EST 06/10/2024 2:05 AM EST Shahnaz Scanlon MD HEMATOLOGY ORDERABLE S [facility] [place] [address] * Magnesium (06/10/2024 1:55 AM EST) Magnesium 0.83 0.69 - 1.07 mMol/L 06/10/2024 2:37 AM EST [facility] Blood VENOUS BLOOD SPECIMEN / Unknown Venipuncture / Unknown 06/10/2024 1:55 AM EST 06/10/2024 2:05 AM EST Shahnaz Scanlon MD CHEMISTRY ORDERABLES [facility] [place] [address] * (ABNORMAL) Basic Metabolic Panel (06/10/2024 1:55 AM EST) Glucose 140 65 - 199 mg/dL 06/10/2024 2:37 AM [facility] Comment:Glucose Concentratio n >=200 mg/dL plus symptoms is consistent with Diabetes Mellitus. Blood Urea Nitrogen 24(H) 10 - 20 mg/dL 06/10/2024 2:37 AM [facility] Creatinine 1.06 0.80 - 1.50 mg/dL 06/10/2024 2:37 AM [facility] Sodium 138 135 - 145 mMol/L 06/10/2024 2:37 AM [facility] Potassium 4.1 3.5 - 5.0 mMol/L 06/10/2024 2:37 AM [facility] Chloride 100 98 - 107 mMol/L 06/10/2024 2:37 AM [facility] Carbon Dioxide 25 22 - 31 mMol/L 06/10/2024 2:37 AM [facility] Anion Gap 13 5 - 15 mMol/L 06/10/2024 2:37 AM [facility] Calcium 9.5 8.5 - 10.5 mg/dL 06/10/2024 2:37 AM [facility] Est Glomerular Filtration Rate - Male 77 mL/min/1. 73 m?? 06/10/2024 2:37 AM [facility] Comment: [...] Scanlon MD CHEMISTRY ORDERABLES Performing Organization Address [facility]/ZIP Co de Phone Number [facility] [place] [address] * Heparin (unfractionated) Level (06/10/2024 1:54 AM EST) UF Heparin 0.56 IU/mL 06/10/2024 2:41 AM EST [facility] Comment: Heparin (anti-Xa) levels [...] EST Shahnaz Scanlon MD HEMATOLOGY ORDERABLE S [facility] [place] [address] * POC, GLUCOSE (06/10/2024 12:05 AM EST) Glucometer, POC 125 65 - 199 mg/dL 06/10/2024 12:05 AM EST [facility] Comment:Supplemental ranges: <140 mg/dL before meals <180 mg/dL all other times of the day. Blood CAPILLARY BLOOD / Unknown 06/10/2024 12:05 AM EST 06/10/2024 12:05 AM EST Melida Valdes MD POINT OF CARE TEST O RDERABLES Performing Organization Address City/[facility]/ZIP Co de Phone Number [facility] [place] [address] * POC, GLUCOSE (06/09/2024 8:36 PM EST) Glucometer, POC 197 65 - 199 mg/dL 06/09/2024 8:36 PM EST [facility] Comment:Supplemental ranges: <140 mg/dL before meals <180 mg/dL all other times of the day. Blood CAPILLARY BLOOD / Unknown 06/09/2024 8:36 PM EST 06/09/2024 8:36 PM EST Melida Valdes MD POINT OF CARE TEST O RALPHERAPIETER Performing Organization Address [facility] Co de Phone Number [facility] [place] [address] * POC, GLUCOSE (06/09/2024 5:27 PM EST) Glucometer, POC 174 65 - 199 mg/dL 06/09/2024 5:28 PM EST [facility] Comment:Supplemental ranges: <140 mg/dL before meals <180 mg/dL all other times of the day. Blood CAPILLARY BLOOD / Unknown 06/09/2024 5:27 PM EST 06/09/2024 5:28 PM EST Melida Valdes MD POINT OF CARE TEST O NIKA Performing Organization Address City/[facility]/ZIP Co de Phone Number [facility] [place] [address] * (ABNORMAL) POC, GLUCOSE (06/09/2024 11:52 AM EST) Glucometer, POC 211(H) 65 - 199 mg/dL 06/09/2024 11:52 AM EST [facility] Comment:Supplemental ranges: <140 mg/dL before meals <180 mg/dL all other times of the day. Blood CAPILLARY BLOOD / Unknown 06/09/2024 11:52 AM EST 06/09/2024 11:52 AM EST Melida Valdes MD POINT OF CARE TEST O RDERABLES Performing Organization Address [facility]/ZIP Co de Phone Number [facility] [place] [address] * Potassium (06/09/2024 8:25 AM EST) Potassium 4.6 3.5 - 5.0 mMol/L 06/09/2024 10:09 AM EST [facility] Blood VENOUS BLOOD SPECIMEN / Unknown Venipuncture / Unknown 06/09/2024 8:25 AM EST 06/09/2024 8:42 AM EST Shahnaz Scanlon MD CHEMISTRY ORDERABLES Performing Organization Address [facility] Co de Phone Number [facility] [place] [address] * (ABNORMAL) POC, GLUCOSE (06/09/2024 8:10 AM EST) Glucometer, POC 209(H) 65 - 199 mg/dL 06/09/2024 8:10 AM EST [facility] Comment:Supplemental ranges: <140 mg/dL before meals <180 mg/dL all other times of the day. Blood CAPILLARY BLOOD / Unknown 06/09/2024 8:10 AM EST 06/09/2024 8:11 AM EST Melida Valdes MD POINT OF CARE TEST O RDERABLES Performing Organization Address [facility]/ZIP Co de Phone Number [facility] [place] [address] * POC, GLUCOSE (06/09/2024 4:40 AM EST) Glucometer, POC 131 65 - 199 mg/dL 06/09/2024 4:40 AM EST [facility] Comment:Supplemental ranges: <140 mg/dL before meals <180 mg/dL all other times of the day. Blood CAPILLARY BLOOD / Unknown 06/09/2024 4:40 AM EST 06/09/2024 4:41 AM EST Melida Valdes MD POINT OF CARE TEST O RDERABLES Performing Organization Address City/[facility]/ZIP Co de Phone Number [facility] [place] [address] * Heparin (unfractionated) Level (06/09/2024 2:12 AM EST) UF Heparin 0.55 IU/mL 06/09/2024 2:33 AM EST [facility] Comment: Heparin (anti-Xa) levels [...] MD HEMATOLOGY ORDERABLE S Performing Organization Address City/[facility]/ZIP Co de Phone Number [facility] [place] [address] * (ABNORMAL) CBC (with Diff) (06/09/2024 2:12 AM EST) White Blood Cell 9.80(H) 4.00 - 9.50 x10(3)/mc L 06/09/2024 2:44 AM [facility] Red Blood Cell 5.18 4.58 - 5.54 x10(6)/mc L 06/09/2024 2:44 AM [facility] Hemoglobin 15.5 13.7 - 16.5 g/dL 06/09/2024 2:44 AM [facility] Hematocrit 47.4 40.5 - 48.5 % 06/09/2024 2:44 AM [facility] Mean Cell Volume 91.5 82.9 - 93.1 fL 06/09/2024 2:44 AM [facility] Mean Cell Hemoglobin 29.9 27.5 - 32.1 pg 06/09/2024 2:44 AM [facility] Mean Cell Hemoglobin Concentration 32.7 32.0 - 35.7 g/dL 06/09/2024 2:44 AM [facility] Platelet 205 145 - 357 x10(3)/mc L 06/09/2024 2:44 AM [facility] Mean Platelet Volume 9.7 7.6 - 12.9 fL 06/09/2024 2:44 AM [facility] RDW Standard Deviation 47.7(H) 36.0 - 45.0 fL 06/09/2024 2:44 AM [facility] RDW coefficient of variation 14.1(H) 11.4 - 13.8 % 06/09/2024 2:44 AM [facility] NRBC% auto 0.0 % 06/09/2024 2:44 AM [facility] NRBC Absolute <0.01 <0.01 x10(3)/mc L 06/09/2024 2:44 AM [facility] Neutrophil % 53.0 % 06/09/2024 2:44 AM [facility] Neutrophil Absolute (ANC) - Automated 5.19 1.70 - 6.10 x10(3)/mc L 06/09/2024 2:44 AM [facility] Lymph % 31.6 % 06/09/2024 2:44 AM [facility] Lymph Absolute 3.10 0.90 - 3.20 x10(3)/mc L 06/09/2024 2:44 AM [facility] Monocyte % 11.0 % 06/09/2024 2:44 AM [facility] Monocyte Absolute 1.08(H) 0.30 - 0.90 x10(3)/mc L 06/09/2024 2:44 AM [facility] Eos % 2.9 % 06/09/2024 2:44 AM [facility] Eos Absolute 0.28 0.00 - 0.40 x10(3)/mc L 06/09/2024 2:44 AM [facility] Basophil % 0.9 % 06/09/2024 2:44 AM [facility] Baso Absolute 0.09 0.00 - 0.10 x10(3)/mc L 06/09/2024 2:44 AM [facility] Immature Gran % 0.6 % 2:44 AM [facility] Immature Gran Absolute 0.06(H) 0.00 - 0.04 x10(3)/mc L 06/09/2024 2:44 AM [facility] Blood VENOUS BLOOD SPECIMEN / Unknown Venipuncture / Unknown 06/09/2024 2:12 AM EST 06/09/2024 2:21 AM EST Shahnaz Scanlon MD HEMATOLOGY ORDERABLE S [facility] [place] [address] * Magnesium (06/09/2024 2:12 AM EST) Magnesium 0.83 0.69 - 1.07 mMol/L 06/09/2024 2:52 AM [facility] Blood VENOUS BLOOD SPECIMEN / Unknown Venipuncture / Unknown 06/09/2024 2:12 AM EST 06/09/2024 2:22 AM EST Shahnaz Scanlon MD CHEMISTRY ORDERABLES [facility] [place] [address] * (ABNORMAL) Basic Metabolic Panel (06/09/2024 2:12 AM EST) Glucose 147 65 - 199 mg/dL 06/09/2024 2:52 AM EST [facility] Comment:Glucose Concentratio n >=200 mg/dL plus symptoms is consistent with Diabetes Mellitus. Blood Urea Nitrogen 24(H) 10 - 20 mg/dL 06/09/2024 2:52 AM [facility] Creatinine 1.11 0.80 - 1.50 mg/dL 06/09/2024 2:52 AM [facility] Sodium 136 135 - 145 mMol/L 06/09/2024 2:52 AM [facility] Potassium 3.9 3.5 - 5.0 mMol/L 06/09/2024 2:52 AM [facility] Chloride 98 98 - 107 mMol/L 06/09/2024 2:52 AM [facility] Carbon Dioxide 27 22 - 31 mMol/L 06/09/2024 2:52 AM [facility] Anion Gap 11 5 - 15 mMol/L 06/09/2024 2:52 AM EST [facility] Calcium 9.7 8.5 - 10.5 mg/dL 06/09/2024 2:52 AM [facility] Est Glomerular Filtration Rate - Male 73 mL/min/1. 73 m?? 06/09/2024 2:52 AM [facility] Comment: [...] Scanlon MD CHEMISTRY ORDERABLES Performing Organization Address [facility] Co de Phone Number [facility] [place] [address] * POC, GLUCOSE (06/09/2024 12:34 AM EST) Glucometer, POC 186 65 - 199 mg/dL 06/09/2024 12:34 AM EST [facility] Comment:Supplemental ranges: <140 mg/dL before meals <180 mg/dL all other times of the day. Blood CAPILLARY BLOOD / Unknown 06/09/2024 12:34 AM EST 06/09/2024 12:34 AM EST Melida Valdes MD POINT OF CARE TEST O RDERAPIETER Performing Organization Address [facility] Co de Phone Number [facility] [place] [address] * POC, GLUCOSE (06/08/2024 8:27 PM EST) Glucometer, POC 176 65 - 199 mg/dL 06/08/2024 8:28 PM EST [facility] Comment:Supplemental ranges: <140 mg/dL before meals <180 mg/dL all other times of the day. Blood CAPILLARY BLOOD / Unknown 06/08/2024 8:27 PM EST 06/08/2024 8:28 PM EST Melida Valdes MD POINT OF CARE TEST O RDERAPIETER Performing Organization Address City/[facility]/ZIP Co de Phone Number [facility] [place] [address] * POC, GLUCOSE (06/08/2024 4:16 PM EST) Glucometer, POC 159 65 - 199 mg/dL 06/08/2024 4:16 PM EST [facility] Comment:Supplemental ranges: <140 mg/dL before meals <180 mg/dL all other times of the day. Blood CAPILLARY BLOOD / Unknown 06/08/2024 4:16 PM EST 06/08/2024 4:16 PM EST Melida Valdes MD POINT OF CARE TEST O NIKA Performing Organization Address City/[facility]/ZIP Co de Phone Number [facility] [place] [address] * (ABNORMAL) POC, GLUCOSE (06/08/2024 12:35 PM EST) Glucometer, POC 226(H) 65 - 199 mg/dL 06/08/2024 12:35 PM EST [facility] Comment:Supplemental ranges: <140 mg/dL before meals <180 mg/dL all other times of the day. Blood CAPILLARY BLOOD / Unknown 06/08/2024 12:35 PM EST 06/08/2024 12:35 PM EST Melida Valdes MD POINT OF CARE TEST O NIKA [facility] [place] [address] * POC, GLUCOSE (06/08/2024 8:10 AM EST) Glucometer, POC 190 65 - 199 mg/dL 06/08/2024 8:14 AM EST [facility] Comment:Supplemental ranges: <140 mg/dL before meals <180 mg/dL all other times of the day. Blood CAPILLARY BLOOD / Unknown 06/08/2024 8:10 AM EST 06/08/2024 8:14 AM EST Melida Valdes MD POINT OF CARE TEST O NIKA Performing Organization Address [facility] Co de Phone Number [facility] [place] [address] * POC, GLUCOSE (06/08/2024 4:09 AM EST) Glucometer, POC 151 65 - 199 mg/dL 06/08/2024 4:10 AM EST [facility] Comment:Supplemental ranges: <140 mg/dL before meals <180 mg/dL all other times of the day. Blood CAPILLARY BLOOD / Unknown 06/08/2024 4:09 AM EST 06/08/2024 4:10 AM EST Melida Valdes MD POINT OF CARE TEST O NIKA Performing Organization Address [facility] de Phone Number [facility] [place] [address] * Heparin (unfractionated) Level (06/08/2024 3:21 AM EST) UF Heparin 0.46 IU/mL 06/08/2024 3:41 AM EST [facility] Comment: Heparin (anti-Xa) levels [...] EST Shahnaz Scanlon MD HEMATOLOGY ORDERABLE S [facility] [place] [address] * (ABNORMAL) CBC (with Diff) (06/08/2024 3:21 AM EST) White Blood Cell 9.92(H) 4.00 - 9.50 x10(3)/mc L 06/08/2024 3:34 AM [facility] Red Blood Cell 5.09 4.58 - 5.54 x10(6)/mc L 06/08/2024 3:34 AM [facility] Hemoglobin 15.1 13.7 - 16.5 g/dL 06/08/2024 3:34 AM [facility] Hematocrit 46.7 40.5 - 48.5 % 06/08/2024 3:34 AM [facility] Mean Cell Volume 91.7 82.9 - 93.1 fL 06/08/2024 3:34 AM [facility] Mean Cell Hemoglobin 29.7 27.5 - 32.1 pg 06/08/2024 3:34 AM [facility] Mean Cell Hemoglobin Concentration 32.3 32.0 - 35.7 g/dL 06/08/2024 3:34 AM [facility] Platelet 203 145 - 357 x10(3)/mc L 06/08/2024 3:34 AM [facility] Mean Platelet Volume 9.4 7.6 - 12.9 fL 06/08/2024 3:34 AM [facility] RDW Standard Deviation 46.9(H) 36.0 - 45.0 fL 06/08/2024 3:34 AM [facility] RDW coefficient of variation 13.8 11.4 - 13.8 % 06/08/2024 3:34 AM [facility] NRBC% auto 0.0 % 06/08/2024 3:34 AM [facility] NRBC Absolute <0.01 <0.01 x10(3)/mc L 06/08/2024 3:34 AM [facility] Neutrophil % 56.8 % 06/08/2024 3:34 AM [facility] Neutrophil Absolute (ANC) - Automated 5.63 1.70 - 6.10 x10(3)/mc L 06/08/2024 3:34 AM [facility] Lymph % 27.3 % 06/08/2024 3:34 AM [facility] Lymph Absolute 2.71 0.90 - 3.20 x10(3)/mc L 06/08/2024 3:34 AM [facility] Monocyte % 11.2 % 06/08/2024 3:34 AM [facility] Monocyte Absolute 1.11(H) 0.30 - 0.90 x10(3)/mc L 06/08/2024 3:34 AM [facility] Eos % 3.4 % 06/08/2024 3:34 AM [facility] Eos Absolute 0.34 0.00 - 0.40 x10(3)/mc L 06/08/2024 3:34 AM [facility] Basophil % 0.8 % 06/08/2024 3:34 AM [facility] Baso Absolute 0.08 0.00 - 0.10 x10(3)/mc L 06/08/2024 3:34 AM [facility] Immature Gran % 0.5 % 3:34 AM [facility] Immature Gran Absolute 0.05(H) 0.00 - 0.04 x10(3)/mc L 06/08/2024 3:34 AM [facility] Blood VENOUS BLOOD SPECIMEN / Unknown Venipuncture / Unknown 06/08/2024 3:21 AM EST 06/08/2024 3:27 AM EST Shahnaz Scanlon MD HEMATOLOGY ORDERABLE S [facility] [place] [address] * Magnesium (06/08/2024 3:21 AM EST) Pathologist [facility] Magnesium 0.84 0.69 - 1.07 mMol/L 06/08/2024 3:59 AM [facility] Blood VENOUS BLOOD SPECIMEN / Unknown Venipuncture / Unknown 06/08/2024 3:21 AM EST 06/08/2024 3:27 AM EST Shahnaz Scanlon MD CHEMISTRY ORDERABLES Performing Organization Address City/[facility]/ZIP Co de Phone Number [facility] [place] [address] * (ABNORMAL) Basic Metabolic Panel (06/08/2024 3:21 AM EST) [facility] Glucose 173 65 - 199 mg/dL 06/08/2024 3:59 AM [facility] Comment:Glucose Concentratio n >=200 mg/dL plus symptoms is consistent with Diabetes Mellitus. Blood Urea Nitrogen 25(H) 10 - 20 mg/dL 06/08/2024 3:59 AM [facility] Creatinine 1.09 0.80 - 1.50 mg/dL 06/08/2024 3:59 AM [facility] Sodium 135 135 - 145 mMol/L 06/08/2024 3:59 AM [facility] Potassium 4.2 3.5 - 5.0 mMol/L 06/08/2024 3:59 AM [facility] Chloride 98 98 - 107 mMol/L 06/08/2024 3:59 AM [facility] Carbon Dioxide 25 22 - 31 mMol/L 06/08/2024 3:59 AM [facility] Anion Gap 12 5 - 15 mMol/L 06/08/2024 3:59 AM [facility] Calcium 9.4 8.5 - 10.5 mg/dL 06/08/2024 3:59 AM EST [facility] Est Glomerular Filtration Rate - Male 74 mL/min/1. 73 m?? 06/08/2024 3:59 AM EST [facility] Comment: This patient's estimated [...] Scanlon MD CHEMISTRY ORDERABLES Performing Organization Address City/[facility]/ZIP Co de Phone Number [facility] [place] [address] * POC, GLUCOSE (06/07/2024 11:57 PM EST) Glucometer, POC 188 65 - 199 mg/dL 06/07/2024 11:57 PM EST [facility] Comment:Supplemental ranges: <140 mg/dL before meals <180 mg/dL all other times of the day. Blood CAPILLARY BLOOD / Unknown 06/07/2024 11:57 PM EST 06/07/2024 11:58 PM EST Melida Valdes MD POINT OF CARE TEST O RDERABLES [facility] [place] [address] * POC, GLUCOSE (06/07/2024 8:05 PM EST) Glucometer, POC 118 65 - 199 mg/dL 06/07/2024 8:06 PM EST [facility] Comment:Supplemental ranges: <140 mg/dL before meals <180 mg/dL all other times of the day. Blood CAPILLARY BLOOD / Unknown 06/07/2024 8:05 PM EST 06/07/2024 8:06 PM EST Melida Valdes MD POINT OF CARE TEST O NIKA Performing Organization Address City/[facility]/ZIP Co de Phone Number [facility] [place] [address] * Potassium (06/07/2024 5:22 PM EST) Pathologist [facility] Potassium 4.6 3.5 - 5.0 mMol/L 06/07/2024 5:59 PM EST [facility] Blood VENOUS BLOOD SPECIMEN / Unknown Venipuncture / Unknown 06/07/2024 5:22 PM EST 06/07/2024 5:26 PM EST Shahnaz Scanlon MD CHEMISTRY ORDERABLES Performing Organization Address [facility] Co de Phone Number [facility] [place] [address] * POC, GLUCOSE (06/07/2024 4:31 PM EST) Glucometer, POC 174 65 - 199 mg/dL 06/07/2024 4:34 PM EST [facility] Comment:Supplemental ranges: <140 mg/dL before meals <180 mg/dL all other times of the day. Blood CAPILLARY BLOOD / Unknown 06/07/2024 4:31 PM EST 06/07/2024 4:34 PM EST Melida Valdes MD POINT OF CARE TEST Abimael MAHER Performing Organization Address City/[facility] Co de Phone Number [facility] [place] [address] * MRI Cardiac Morphology Function wwo Contrast (06/07/2024 1:10 PM EST) WORKSTATION ID [id number] [facility] Anatomical Region Laterality Modality Magnetic Resonan ce [...] - Mildly dilated left ventricle size with ujzqnsnz-wa-uwffdhoq decreased LV systolic function. ??LV ejection fraction [...] who have questions please contact the health respiratory care instructor that requested your imaging first. ? Electronically signed by: Kriss Alonzo MD, [facility] ([phone]), at 06/07/2024 2:41 PM Narrative 06/07/2024 2:41 [...] VENTRICLE: Mildly dilated left ventricle size with [id number] decreased LV systolic function. ??LV ejection fraction [...] VENTRICLE: Mildly dilated left ventricle size with ovfcapxy-ba-frpmgles decreasedLV systolic function. LV ejection fraction is [...] - Mildly dilated left ventricle size with nbryymaq-bo-zuzixcmo decreasedLV systolic function. LV ejection fraction is [...] patients who have questions please contactthe health respiratory care instructor that requested your imaging first. Electronically signed by: Kriss Alonzo MD, [facility]([phone]), at 06/07/2024 2:41 PM Delroy Fofana MD [facility] MRI ORDERABLES * (ABNORMAL) POC, GLUCOSE (06/07/2024 11:05 AM EST) [facility] Signature Glucometer, POC 221(H) 65 - 199 mg/dL 06/07/2024 11:06 AM EST [facility] Comment:Supplemental ranges: <140 mg/dL before meals <180 mg/dL all other times of the day. Blood CAPILLARY BLOOD / Unknown 06/07/2024 11:05 AM EST 06/07/2024 11:06 AM EST Melida Valdes MD POINT OF CARE TEST O RDERABLES [facility] [place] [address] * (ABNORMAL) POC, GLUCOSE (06/07/2024 11:03 AM EST) Glucometer, POC 250(H) 65 - 199 mg/dL 06/07/2024 11:04 AM EST [facility] Comment:Supplemental ranges: <140 mg/dL before meals <180 mg/dL all other times of the day. Blood CAPILLARY BLOOD / Unknown 06/07/2024 11:03 AM EST 06/07/2024 11:04 AM EST Melida Valdes MD POINT OF CARE TEST O RDBECKIE Performing Organization Address [facility]/ZIP Co de Phone Number [facility] [place] [address] * Potassium (06/07/2024 9:44 AM EST) Potassium 4.7 3.5 - 5.0 mMol/L 06/07/2024 10:23 AM EST [facility] Blood VENOUS BLOOD SPECIMEN / Unknown Venipuncture / Unknown 06/07/2024 9:44 AM EST 06/07/2024 9:57 AM EST Shahnaz Scanlon MD CHEMISTRY ORDERABLES Performing Organization Address [facility] Co de Phone Number [facility] [place] [address] * POC, GLUCOSE (06/07/2024 7:45 AM EST) Glucometer, POC 175 65 - 199 mg/dL 06/07/2024 7:45 AM EST [facility] Comment:Supplemental ranges: <140 mg/dL before meals <180 mg/dL all other times of the day. Blood CAPILLARY BLOOD / Unknown 06/07/2024 7:45 AM EST 06/07/2024 7:46 AM EST Melida Valdes MD POINT OF CARE TEST O RDBECKIE Performing Organization Address [facility]/ZIP Co de Phone Number [facility] [place] [address] * XR Chest PA & Lateral (Generic) (06/07/2024 7:03 AM EST) WORKSTATION ID [id number] RAD Anatomical Region Laterality Modality Chest N/A [...] who have questions please contact the health respiratory care instructor that requested your imaging first. ? Electronically signed by: Stuart Aponte MD, [facility] ??([phone]), at 06/07/2024 10:45 AM Narrative 06/07/2024 10:45 [...] patients who have questions please contactthe health respiratory care instructor that requested your imaging first. Electronically signed by: Stuart Aponte MD, [facility]([phone]), at 06/07/2024 10:45 AM Shahnaz Scanlon MD IMG DX ORDERABLES * POC, GLUCOSE (06/07/2024 4:25 AM EST) Glucometer, POC 127 65 - 199 mg/dL 06/07/2024 4:26 AM EST [facility] Comment:Supplemental ranges: <140 mg/dL before meals <180 mg/dL all other times of the day. Blood CAPILLARY BLOOD / Unknown 06/07/2024 4:25 AM EST 06/07/2024 4:26 AM EST Melida Valdes MD POINT OF CARE TEST O RDERABLES [facility] [place] [address] * Heparin (unfractionated) Level (06/07/2024 2:41 AM EST) UF Heparin 0.45 IU/mL 06/07/2024 3:03 AM EST [facility] Comment: Heparin (anti-Xa) levels [...] EST Shahnaz Scanlon MD HEMATOLOGY ORDERABLE S [facility] [place] [address] * (ABNORMAL) CBC (with Diff) (06/07/2024 2:41 AM EST) White Blood Cell 10.06(H) 4.00 - 9.50 x10(3)/mc L 06/07/2024 2:58 AM [facility] Red Blood Cell 5.02 4.58 - 5.54 x10(6)/mc L 06/07/2024 2:58 AM [facility] Hemoglobin 14.8 13.7 - 16.5 g/dL 06/07/2024 2:58 AM [facility] Hematocrit 46.2 40.5 - 48.5 % 06/07/2024 2:58 AM [facility] Mean Cell Volume 92.0 82.9 - 93.1 fL 06/07/2024 2:58 AM [facility] Mean Cell Hemoglobin 29.5 27.5 - 32.1 pg 06/07/2024 2:58 AM [facility] Mean Cell Hemoglobin Concentration 32.0 32.0 - 35.7 g/dL 06/07/2024 2:58 AM [facility] Platelet 202 145 - 357 x10(3)/mc L 06/07/2024 2:58 AM [facility] Mean Platelet Volume 9.6 7.6 - 12.9 fL 06/07/2024 2:58 AM [facility] RDW Standard Deviation 46.3(H) 36.0 - 45.0 fL 06/07/2024 2:58 AM [facility] RDW coefficient of variation 13.8 11.4 - 13.8 % 06/07/2024 2:58 AM [facility] NRBC% auto 0.0 % 06/07/2024 2:58 AM [facility] NRBC Absolute <0.01 <0.01 x10(3)/mc L 06/07/2024 2:58 AM [facility] Neutrophil % 55.9 % 06/07/2024 2:58 AM [facility] Neutrophil Absolute (ANC) - Automated 5.62 1.70 - 6.10 x10(3)/mc L 06/07/2024 2:58 AM [facility] Lymph % 28.3 % 06/07/2024 2:58 AM [facility] Lymph Absolute 2.85 0.90 - 3.20 x10(3)/mc L 06/07/2024 2:58 AM [facility] Monocyte % 10.8 % 06/07/2024 2:58 AM [facility] Monocyte Absolute 1.09(H) 0.30 - 0.90 x10(3)/mc L 06/07/2024 2:58 AM [facility] Eos % 3.6 % 06/07/2024 2:58 AM [facility] Eos Absolute 0.36 0.00 - 0.40 x10(3)/mc L 06/07/2024 2:58 AM [facility] Basophil % 0.8 % 06/07/2024 2:58 AM [facility] Baso Absolute 0.08 0.00 - 0.10 x10(3)/mc L 06/07/2024 2:58 AM EST [facility] Immature Gran % 0.6 % 2:58 AM [facility] Immature Gran Absolute 0.06(H) 0.00 - 0.04 x10(3)/mc L 06/07/2024 2:58 AM [facility] Blood VENOUS BLOOD SPECIMEN / Unknown Venipuncture / Unknown 06/07/2024 2:41 AM EST 06/07/2024 2:52 AM EST Shahnaz Scanlon MD HEMATOLOGY ORDERABLE S Performing Organization Address City/[facility]/ZIP Co de Phone Number [facility] [place] [address] * Magnesium (06/07/2024 2:41 AM EST) Magnesium 0.92 0.69 - 1.07 mMol/L 06/07/2024 3:25 AM [facility] Blood VENOUS BLOOD SPECIMEN / Unknown Venipuncture / Unknown 06/07/2024 2:41 AM EST 06/07/2024 2:51 AM EST Shahnaz Scanlon MD CHEMISTRY ORDERABLES [facility] [place] [address] * (ABNORMAL) Basic Metabolic Panel (06/07/2024 2:41 AM EST) Glucose 140 65 - 199 mg/dL 06/07/2024 3:25 AM [facility] Comment:Glucose Concentratio n >=200 mg/dL plus symptoms is consistent with Diabetes Mellitus. Blood Urea Nitrogen 26(H) 10 - 20 mg/dL 06/07/2024 3:25 AM [facility] Creatinine 1.06 0.80 - 1.50 mg/dL 06/07/2024 3:25 AM [facility] Sodium 136 135 - 145 mMol/L 06/07/2024 3:25 AM [facility] Potassium 3.8 3.5 - 5.0 mMol/L 06/07/2024 3:25 AM [facility] Chloride 98 98 - 107 mMol/L 06/07/2024 3:25 AM [facility] Carbon Dioxide 28 22 - 31 mMol/L 06/07/2024 3:25 AM [facility] Anion Gap 10 5 - 15 mMol/L 06/07/2024 3:25 AM [facility] Calcium 9.4 8.5 - 10.5 mg/dL 06/07/2024 3:25 AM [facility] Est Glomerular Filtration Rate - Male 77 mL/min/1. 73 m?? 06/07/2024 3:25 AM [facility] Comment: [...] AM EST Shahnaz Scanlon MD CHEMISTRY ORDERABLES [facility] [place] [address] * POC, GLUCOSE (06/07/2024 12:08 AM EST) [facility] Signature Glucometer, POC 182 65 - 199 mg/dL 06/07/2024 12:09 AM EST [facility] Comment:Supplemental ranges: <140 mg/dL before meals <180 mg/dL all other times of the day. Blood CAPILLARY BLOOD / Unknown 06/07/2024 12:08 AM EST 06/07/2024 12:09 AM EST Melida Valdes MD POINT OF CARE TEST O NIKA Performing Organization Address City/[facility]/ZIP Co de Phone Number [facility] [place] [address] * POC, GLUCOSE (06/06/2024 8:18 PM EST) Glucometer, POC 143 65 - 199 mg/dL 06/06/2024 8:19 PM EST [facility] Comment:Supplemental ranges: <140 mg/dL before meals <180 mg/dL all other times of the day. Blood CAPILLARY BLOOD / Unknown 06/06/2024 8:18 PM EST 06/06/2024 8:19 PM EST Melida Valdes MD POINT OF CARE TEST O NIKA Performing Organization Address [facility] Co de Phone Number [facility] [place] [address] * POC, GLUCOSE (06/06/2024 3:39 PM EST) Glucometer, POC 147 65 - 199 mg/dL 06/06/2024 3:40 PM EST [facility] Comment:Supplemental ranges: <140 mg/dL before meals <180 mg/dL all other times of the day. Blood CAPILLARY BLOOD / Unknown 06/06/2024 3:39 PM EST 06/06/2024 3:40 PM EST Melida Valdes MD POINT OF CARE TEST O NIKA Performing Organization Address City/[facility] Co de Phone Number [facility] [place] [address] * Potassium (06/06/2024 2:37 PM EST) Potassium 4.3 3.5 - 5.0 mMol/L 06/06/2024 3:01 PM EST [facility] Blood VENOUS BLOOD SPECIMEN / Unknown Venipuncture / Unknown 06/06/2024 2:37 PM EST 06/06/2024 2:42 PM EST Shahnaz Scanlon MD CHEMISTRY ORDERABLES Performing Organization Address City/[facility]/ZIP Co de Phone Number [facility] [place] [address] * (ABNORMAL) POC, GLUCOSE (06/06/2024 1:39 PM EST) Glucometer, POC 317(H) 65 - 199 mg/dL 06/06/2024 1:40 PM EST [facility] Comment:Supplemental ranges: <140 mg/dL before meals <180 mg/dL all other times of the day. Blood CAPILLARY BLOOD / Unknown 06/06/2024 1:39 PM EST 06/06/2024 1:41 PM EST Melida Valdes MD POINT OF CARE TEST O RDERAPIETER Performing Organization Address [facility] Co de Phone Number [facility] [place] [address] * (ABNORMAL) POC, GLUCOSE (06/06/2024 11:34 AM EST) Glucometer, POC 264(H) 65 - 199 mg/dL 06/06/2024 11:35 AM EST [facility] Comment:Supplemental ranges: <140 mg/dL before meals <180 mg/dL all other times of the day. Blood CAPILLARY BLOOD / Unknown 06/06/2024 11:34 AM EST 06/06/2024 11:35 AM EST Melida Valdes MD POINT OF CARE TEST O RDERAPIETER Performing Organization Address City/[facility]/ZIP Co de Phone Number [facility] [place] [address] * Potassium (06/06/2024 10:17 AM EST) Potassium 4.3 3.5 - 5.0 mMol/L 06/06/2024 10:46 AM EST [facility] Blood VENOUS BLOOD SPECIMEN / Unknown Venipuncture / Unknown 06/06/2024 10:17 AM EST 06/06/2024 10:22 AM EST Shahnaz Scanlon MD CHEMISTRY ORDERABLES [facility] [place] [address] * POC, GLUCOSE (06/06/2024 7:57 AM EST) Glucometer, POC 195 65 - 199 mg/dL 06/06/2024 8:03 AM EST [facility] Comment:Supplemental ranges: <140 mg/dL before meals <180 mg/dL all other times of the day. Blood CAPILLARY BLOOD / Unknown 06/06/2024 7:57 AM EST 06/06/2024 8:03 AM EST Melida Valdes MD POINT OF CARE TEST O RDERABLES Performing Organization Address City/[facility]/ZIP Co de Phone Number [facility] [place] [address] * POC, GLUCOSE (06/06/2024 6:53 AM EST) Glucometer, POC 187 65 - 199 mg/dL 06/06/2024 6:53 AM EST [facility] Comment:Supplemental ranges: <140 mg/dL before meals <180 mg/dL all other times of the day. Blood CAPILLARY BLOOD / Unknown 06/06/2024 6:53 AM EST 06/06/2024 6:54 AM EST Melida Valdes MD POINT OF CARE TEST O RDERABLES Performing Organization Address City/[facility]/ZIP Co de Phone Number [facility] [place] [address] * (ABNORMAL) Hemoglobin A1c (06/06/2024 3:33 AM EST) Pathologist [facility] Hemoglobin A1c 7.1(H) 4.3 - 5.6 % 06/06/2024 1:01 PM EST [facility] Comment: Per ADA guidelines, [...] red blood cell turnover may not be admitting representative of glycemic control. Reference Interval: 4.3 - 5.6% 5.7 - 6.4%: Consistent with prediabetes >=6.5%: Consistent with diagnosis of diabetes mellitus Estimated Average Glucose 157 mg/dL 06/06/2024 1:01 PM EST [facility] Blood VENOUS BLOOD SPECIMEN / Unknown Venipuncture / Unknown 06/06/2024 3:33 AM EST 06/06/2024 3:48 AM EST Alejandra Baumann APRN CHEMISTRY ORDERAB LES Performing Organization Address City/State/[facility] Co de Phone Number [facility] [place] [address] * Heparin (unfractionated) Level (06/06/2024 3:33 AM EST) Pathologist [facility] UF Heparin 0.36 IU/mL 06/06/2024 3:59 AM EST [facility] Comment: Heparin (anti-Xa) levels [...] EST Shahnaz Scanlon MD HEMATOLOGY ORDERABLE S [facility] [place] [address] * (ABNORMAL) CBC (with Diff) (06/06/2024 3:33 AM EST) White Blood Cell 9.81(H) 4.00 - 9.50 x10(3)/mc L 06/06/2024 3:54 AM [facility] Red Blood Cell 4.91 4.58 - 5.54 x10(6)/mc L 06/06/2024 3:54 AM [facility] Hemoglobin 14.6 13.7 - 16.5 g/dL 06/06/2024 3:54 AM [facility] Hematocrit 45.4 40.5 - 48.5 % 06/06/2024 3:54 AM [facility] Mean Cell Volume 92.5 82.9 - 93.1 fL 06/06/2024 3:54 AM [facility] Mean Cell Hemoglobin 29.7 27.5 - 32.1 pg 06/06/2024 3:54 AM [facility] Mean Cell Hemoglobin Concentration 32.2 32.0 - 35.7 g/dL 06/06/2024 3:54 AM [facility] Platelet 199 145 - 357 x10(3)/mc L 06/06/2024 3:54 AM [facility] Mean Platelet Volume 9.5 7.6 - 12.9 fL 06/06/2024 3:54 AM [facility] RDW Standard Deviation 47.2(H) 36.0 - 45.0 fL 06/06/2024 3:54 AM [facility] RDW coefficient of variation 13.9(H) 11.4 - 13.8 % 06/06/2024 3:54 AM [facility] NRBC% auto 0.0 % 06/06/2024 3:54 AM [facility] NRBC Absolute <0.01 <0.01 x10(3)/mc L 06/06/2024 3:54 AM [facility] Neutrophil % 56.8 % 06/06/2024 3:54 AM [facility] Neutrophil Absolute (ANC) - Automated 5.57 1.70 - 6.10 x10(3)/mc L 06/06/2024 3:54 AM [facility] Lymph % 27.6 % 06/06/2024 3:54 AM [facility] Lymph Absolute 2.71 0.90 - 3.20 x10(3)/mc L 06/06/2024 3:54 AM [facility] Monocyte % 11.1 % 06/06/2024 3:54 AM [facility] Monocyte Absolute 1.09(H) 0.30 - 0.90 x10(3)/mc L 06/06/2024 3:54 AM [facility] Eos % 3.0 % 06/06/2024 3:54 AM [facility] Eos Absolute 0.29 0.00 - 0.40 x10(3)/mc L 06/06/2024 3:54 AM [facility] Basophil % 0.9 % 06/06/2024 3:54 AM [facility] Baso Absolute 0.09 0.00 - 0.10 x10(3)/mc L 06/06/2024 3:54 AM [facility] Immature Gran % 0.6 % 3:54 AM [facility] Immature Gran Absolute 0.06(H) 0.00 - 0.04 x10(3)/mc L 06/06/2024 3:54 AM EST [facility] Blood VENOUS BLOOD SPECIMEN / Unknown Venipuncture / Unknown 06/06/2024 3:33 AM EST 06/06/2024 3:48 AM EST Shahnaz Scanlon MD HEMATOLOGY ORDERABLE S Performing Organization Address [facility]/ZIP Co de Phone Number [facility] [place] [address] * Magnesium (06/06/2024 3:33 AM EST) Magnesium 0.92 0.69 - 1.07 mMol/L 06/06/2024 4:17 AM [facility] Blood VENOUS BLOOD SPECIMEN / Unknown Venipuncture / Unknown 06/06/2024 3:33 AM EST 06/06/2024 3:47 AM EST Shahnaz Scanlon MD CHEMISTRY ORDERABLES Performing Organization Address City/[facility] Co de Phone Number [facility] [place] [address] * (ABNORMAL) Basic Metabolic Panel (06/06/2024 3:33 AM EST) Glucose 190 65 - 199 mg/dL 06/06/2024 4:17 AM [facility] Comment:Glucose Concentratio n >=200 mg/dL plus symptoms is consistent with Diabetes Mellitus. Blood Urea Nitrogen 27(H) 10 - 20 mg/dL 06/06/2024 4:17 AM [facility] Creatinine 1.12 0.80 - 1.50 mg/dL 06/06/2024 4:17 AM [facility] Sodium 136 135 - 145 mMol/L 06/06/2024 4:17 AM [facility] Potassium 4.0 3.5 - 5.0 mMol/L 06/06/2024 4:17 AM [facility] Chloride 97(L) 98 - 107 mMol/L 06/06/2024 4:17 AM EST [facility] Carbon Dioxide 26 22 - 31 mMol/L 06/06/2024 4:17 AM [facility] Anion Gap 13 5 - 15 mMol/L 06/06/2024 4:17 AM [facility] Calcium 9.1 8.5 - 10.5 mg/dL 06/06/2024 4:17 AM EST [facility] Est Glomerular Filtration Rate - Male 72 mL/min/1. 73 m?? 06/06/2024 4:17 AM EST [facility] Comment: This patient's estimated [...] AM EST Shahnaz Scanlon MD CHEMISTRY ORDERABLES [facility] [place] [address] * (ABNORMAL) POC, GLUCOSE (06/05/2024 10:31 PM EDT) [facility] Signature Glucometer, POC 238(H) 65 - 199 mg/dL 06/05/2024 10:31 PM EDT [facility] Comment:Supplemental ranges: <140 mg/dL before meals <180 mg/dL all other times of the day. Blood CAPILLARY BLOOD / Unknown 06/05/2024 10:31 PM EDT 06/05/2024 10:31 PM EDT Melida Valdes MD POINT OF CARE TEST O RDERABLES [facility] [place] [address] * (ABNORMAL) POC, GLUCOSE (06/05/2024 4:22 PM EDT) Glucometer, POC 205(H) 65 - 199 mg/dL 06/05/2024 4:22 PM EDT [facility] Comment:Supplemental ranges: <140 mg/dL before meals <180 mg/dL all other times of the day. Blood CAPILLARY BLOOD / Unknown 06/05/2024 4:22 PM EDT 06/05/2024 4:23 PM EDT Melida Valdes MD POINT OF CARE TEST O RDERABLES Performing Organization Address City/[facility]/ZIP Co de Phone Number [facility] [place] [address] * (ABNORMAL) POC, GLUCOSE (06/05/2024 11:34 AM EDT) Glucometer, POC 211(H) 65 - 199 mg/dL 06/05/2024 11:34 AM EDT [facility] Comment:Supplemental ranges: <140 mg/dL before meals <180 mg/dL all other times of the day. Blood CAPILLARY BLOOD / Unknown 06/05/2024 11:34 AM EDT 06/05/2024 11:34 AM EDT Melida Vlades MD POINT OF CARE TEST O RDERABLES [facility] [place] [address] * Potassium (06/05/2024 9:04 AM EDT) Potassium 4.3 3.5 - 5.0 mMol/L 06/05/2024 9:50 AM EDT [facility] Blood VENOUS BLOOD SPECIMEN / Unknown Venipuncture / Unknown 06/05/2024 9:04 AM EDT 06/05/2024 9:21 AM EDT Shahnaz Scanlon MD CHEMISTRY ORDERABLES Performing Organization Address [facility]/ZIP Co de Phone Number [facility] [place] [address] * POC, GLUCOSE (06/05/2024 7:27 AM EDT) Glucometer, POC 166 65 - 199 mg/dL 06/05/2024 7:27 AM EDT [facility] Comment:Supplemental ranges: <140 mg/dL before meals <180 mg/dL all other times of the day. Blood CAPILLARY BLOOD / Unknown 06/05/2024 7:27 AM EDT 06/05/2024 7:27 AM EDT Melida Valdes MD POINT OF CARE TEST O RDERABLES Performing Organization Address [facility]/ZIP Co de Phone Number [facility] [place] [address] * Heparin (unfractionated) Level (06/05/2024 3:44 AM EDT) [facility] Signature UF Heparin 0.44 IU/mL 06/05/2024 4:07 AM EDT [facility] Comment: Heparin (anti-Xa) levels [...] EDT Shahnaz Scanlon MD HEMATOLOGY ORDERABLE S [facility] [place] [address] * (ABNORMAL) CBC (with Diff) (06/05/2024 3:44 AM EDT) White Blood Cell 10.83(H) 4.00 - 9.50 x10(3)/mc L 06/05/2024 3:56 AM EDT [facility] Red Blood Cell 5.07 4.58 - 5.54 x10(6)/mc L 06/05/2024 3:56 AM EDT [facility] Hemoglobin 15.3 13.7 - 16.5 g/dL 06/05/2024 3:56 AM EDT [facility] Hematocrit 46.8 40.5 - 48.5 % 06/05/2024 3:56 AM EDT [facility] Mean Cell Volume 92.3 82.9 - 93.1 fL 06/05/2024 3:56 AM EDT [facility] Mean Cell Hemoglobin 30.2 27.5 - 32.1 pg 06/05/2024 3:56 AM EDT [facility] Mean Cell Hemoglobin Concentration 32.7 32.0 - 35.7 g/dL 06/05/2024 3:56 AM EDT [facility] Platelet 219 145 - 357 x10(3)/mc L 06/05/2024 3:56 AM EDT [facility] Mean Platelet Volume 9.4 7.6 - 12.9 fL 06/05/2024 3:56 AM EDT [facility] RDW Standard Deviation 46.7(H) 36.0 - 45.0 fL 06/05/2024 3:56 AM [facility] RDW coefficient of variation 13.9(H) 11.4 - 13.8 % 06/05/2024 3:56 AM [facility] NRBC% auto 0.0 % 06/05/2024 3:56 AM [facility] NRBC Absolute <0.01 <0.01 x10(3)/mc L 06/05/2024 3:56 AM [facility] Neutrophil % 61.5 % 06/05/2024 3:56 AM [facility] Neutrophil Absolute (ANC) - Automated 6.65(H) 1.70 - 6.10 x10(3)/mc L 06/05/2024 3:56 AM [facility] Lymph % 24.0 % 06/05/2024 3:56 AM [facility] Lymph Absolute 2.60 0.90 - 3.20 x10(3)/mc L 06/05/2024 3:56 AM [facility] Monocyte % 10.9 % 06/05/2024 3:56 AM [facility] Monocyte Absolute 1.18(H) 0.30 - 0.90 x10(3)/mc L 06/05/2024 3:56 AM [facility] Eos % 2.2 % 06/05/2024 3:56 AM [facility] Eos Absolute 0.24 0.00 - 0.40 x10(3)/mc L 06/05/2024 3:56 AM [facility] Basophil % 0.8 % 06/05/2024 3:56 AM [facility] Baso Absolute 0.09 0.00 - 0.10 x10(3)/mc L 06/05/2024 3:56 AM [facility] Immature Gran % 0.6 % 3:56 AM [facility] Immature Gran Absolute 0.07(H) 0.00 - 0.04 x10(3)/mc L 06/05/2024 3:56 AM EDT [facility] Blood VENOUS BLOOD SPECIMEN / Unknown Venipuncture / Unknown 06/05/2024 3:44 AM EDT 06/05/2024 3:50 AM EDT Shahnaz Scanlon MD HEMATOLOGY ORDERABLE S [facility] [place] [address] * Magnesium (06/05/2024 3:44 AM EDT) Magnesium 0.92 0.69 - 1.07 mMol/L 06/05/2024 4:20 AM EDT [facility] Blood VENOUS BLOOD SPECIMEN / Unknown Venipuncture / Unknown 06/05/2024 3:44 AM EDT 06/05/2024 3:50 AM EDT Shahnaz Scanlon MD CHEMISTRY ORDERABLES Performing Organization Address City/[facility]/ZIP Co de Phone Number [facility] [place] [address] * (ABNORMAL) Basic Metabolic Panel (06/05/2024 3:44 AM EDT) Glucose 155 65 - 199 mg/dL 06/05/2024 4:20 AM EDT [facility] Comment:Glucose Concentratio n >=200 mg/dL plus symptoms is consistent with Diabetes Mellitus. Blood Urea Nitrogen 25(H) 10 - 20 mg/dL 06/05/2024 4:20 AM EDT [facility] Creatinine 1.16 0.80 - 1.50 mg/dL 06/05/2024 4:20 AM EDT [facility] Sodium 136 135 - 145 mMol/L 06/05/2024 4:20 AM EDT [facility] Potassium 3.9 3.5 - 5.0 mMol/L 06/05/2024 4:20 AM EDT [facility] Chloride 95(L) 98 - 107 mMol/L 06/05/2024 4:20 AM EDT [facility] Carbon Dioxide 29 22 - 31 mMol/L 06/05/2024 4:20 AM EDT [facility] Anion Gap 12 5 - 15 mMol/L 06/05/2024 4:20 AM EDT [facility] Calcium 9.2 8.5 - 10.5 mg/dL 06/05/2024 4:20 AM EDT [facility] Est Glomerular Filtration Rate - Male 69 mL/min/1. 73 m?? 06/05/2024 4:20 AM EDT [facility] Comment: This patient's estimated [...] AM EDT Shahnaz Scanlon MD CHEMISTRY ORDERABLES [facility] [place] [address] * Potassium (06/04/2024 10:34 PM EDT) Potassium 3.7 3.5 - 5.0 mMol/L 06/04/2024 11:03 PM EDT [facility] Blood VENOUS BLOOD SPECIMEN / Unknown Venipuncture / Unknown 06/04/2024 10:34 PM EDT 06/04/2024 10:39 PM EDT Shahnaz Scanlon MD CHEMISTRY ORDERABLES Performing Organization Address [facility]/ZIP Co de Phone Number [facility] [place] [address] * POC, GLUCOSE (06/04/2024 7:43 PM EDT) Glucometer, POC 175 65 - 199 mg/dL 06/04/2024 7:43 PM EDT [facility] Comment:Supplemental ranges: <140 mg/dL before meals <180 mg/dL all other times of the day. Blood CAPILLARY BLOOD / Unknown 06/04/2024 7:43 PM EDT 06/04/2024 7:43 PM EDT Melida Valdes MD POINT OF CARE TEST O RDERABLES Performing Organization Address [facility] Co de Phone Number [facility] [place] [address] * Potassium (06/04/2024 4:35 PM EDT) Potassium 4.0 3.5 - 5.0 mMol/L 06/04/2024 5:32 PM EDT [facility] Blood VENOUS BLOOD SPECIMEN / Unknown Venipuncture / Unknown 06/04/2024 4:35 PM EDT 06/04/2024 4:40 PM EDT Shahnaz Scanlon MD CHEMISTRY ORDERABLES Performing Organization Address [facility] Co de Phone Number [facility] [place] [address] * POC, GLUCOSE (06/04/2024 3:26 PM EDT) Glucometer, POC 154 65 - 199 mg/dL 06/04/2024 3:26 PM EDT [facility] Comment:Supplemental ranges: <140 mg/dL before meals <180 mg/dL all other times of the day. Blood CAPILLARY BLOOD / Unknown 06/04/2024 3:26 PM EDT 06/04/2024 3:27 PM EDT Melida Valdes MD POINT OF CARE TEST O RDERABLES Performing Organization Address City/[facility]/ZIP Co de Phone Number [facility] [place] [address] * POC, GLUCOSE (06/04/2024 11:09 AM EDT) Glucometer, POC 188 65 - 199 mg/dL 06/04/2024 11:09 AM EDT [facility] Comment:Supplemental ranges: <140 mg/dL before meals <180 mg/dL all other times of the day. Blood CAPILLARY BLOOD / Unknown 06/04/2024 11:09 AM EDT 06/04/2024 11:09 AM EDT Delroy Fofana MD POINT OF CARE TEST ORDERABLES Performing Organization Address [facility] Co de Phone Number [facility] [place] [address] * Heparin (unfractionated) Level (06/04/2024 10:41 AM EDT) UF Heparin 0.43 IU/mL 06/04/2024 11:06 AM EDT [facility] Comment: Heparin (anti-Xa) levels [...] MD HEMATOLOGY ORDERABLE S Performing Organization Address City/[facility]/ZIP Co de Phone Number [facility] [place] [address] * Potassium (06/04/2024 10:41 AM EDT) Potassium 4.0 3.5 - 5.0 mMol/L 06/04/2024 11:11 AM EDT [facility] Blood VENOUS BLOOD SPECIMEN / Unknown Venipuncture / Unknown 06/04/2024 10:41 AM EDT 06/04/2024 10:46 AM EDT Shahnaz Scanlon MD CHEMISTRY ORDERABLES Performing Organization Address [facility] Co de Phone Number [facility] [place] [address] * POC, GLUCOSE (06/04/2024 7:11 AM EDT) Glucometer, POC 182 65 - 199 mg/dL 06/04/2024 7:12 AM EDT [facility] Comment:Supplemental ranges: <140 mg/dL before meals <180 mg/dL all other times of the day. Blood CAPILLARY BLOOD / Unknown 06/04/2024 7:11 AM EDT 06/04/2024 7:12 AM EDT Delroy Fofana MD POINT OF CARE TEST ORDERABLES Performing Organization Address City/[facility]/ZIP Co de Phone Number [facility] [place] [address] * Heparin (unfractionated) Level (06/04/2024 4:38 AM EDT) UF Heparin 0.41 IU/mL 06/04/2024 5:19 AM EDT [facility] Comment: Heparin (anti-Xa) levels [...] MD HEMATOLOGY ORDERABLE S Performing Organization Address City/State/[facility] Co de Phone Number [facility] [place] [address] * (ABNORMAL) CBC (with Diff) (06/04/2024 4:38 AM EDT) White Blood Cell 11.45(H) 4.00 - 9.50 x10(3)/mc L 06/04/2024 5:12 AM EDT [facility] Red Blood Cell 5.35 4.58 - 5.54 x10(6)/mc L 06/04/2024 5:12 AM EDT [facility] Hemoglobin 16.0 13.7 - 16.5 g/dL 06/04/2024 5:12 AM EDT [facility] Hematocrit 49.6(H) 40.5 - 48.5 % 06/04/2024 5:12 AM EDT [facility] Mean Cell Volume 92.7 82.9 - 93.1 fL 06/04/2024 5:12 AM EDT [facility] Mean Cell Hemoglobin 29.9 27.5 - 32.1 pg 06/04/2024 5:12 AM [facility] Mean Cell Hemoglobin Concentration 32.3 32.0 - 35.7 g/dL 06/04/2024 5:12 AM [facility] Platelet 222 145 - 357 x10(3)/mc L 06/04/2024 5:12 AM [facility] Mean Platelet Volume 9.5 7.6 - 12.9 fL 06/04/2024 5:12 AM [facility] RDW Standard Deviation 47.6(H) 36.0 - 45.0 fL 06/04/2024 5:12 AM [facility] RDW coefficient of variation 14.1(H) 11.4 - 13.8 % 06/04/2024 5:12 AM [facility] NRBC% auto 0.0 % 06/04/2024 5:12 AM [facility] NRBC Absolute <0.01 <0.01 x10(3)/mc L 06/04/2024 5:12 AM [facility] Neutrophil % 60.3 % 06/04/2024 5:12 AM [facility] Neutrophil Absolute (ANC) - Automated 6.91(H) 1.70 - 6.10 x10(3)/mc L 06/04/2024 5:12 AM [facility] Lymph % 25.1 % 06/04/2024 5:12 AM [facility] Lymph Absolute 2.87 0.90 - 3.20 x10(3)/mc L 06/04/2024 5:12 AM [facility] Monocyte % 10.6 % 06/04/2024 5:12 AM [facility] Monocyte Absolute 1.21(H) 0.30 - 0.90 x10(3)/mc L 06/04/2024 5:12 AM [facility] Eos % 2.8 % 06/04/2024 5:12 AM [facility] Eos Absolute 0.32 0.00 - 0.40 x10(3)/mc L 06/04/2024 5:12 AM EDT [facility] Basophil % 0.7 % 06/04/2024 5:12 AM EDT [facility] Baso Absolute 0.08 0.00 - 0.10 x10(3)/mc L 06/04/2024 5:12 AM EDT [facility] Immature Gran % 0.5 % 5:12 AM EDT [facility] Immature Gran Absolute 0.06(H) 0.00 - 0.04 x10(3)/mc L 06/04/2024 5:12 AM EDT [facility] Blood VENOUS BLOOD SPECIMEN / Unknown Venipuncture / Unknown 06/04/2024 4:38 AM EDT 06/04/2024 5:07 AM EDT Shahnaz Scanlon MD HEMATOLOGY ORDERABLE S [facility] [place] [address] * Magnesium (06/04/2024 4:38 AM EDT) Magnesium 0.84 0.69 - 1.07 mMol/L 06/04/2024 5:35 AM EDT [facility] Blood VENOUS BLOOD SPECIMEN / Unknown Venipuncture / Unknown 06/04/2024 4:38 AM EDT 06/04/2024 5:07 AM EDT Shahnaz Scanlon MD CHEMISTRY ORDERABLES [facility] [place] [address] * (ABNORMAL) Basic Metabolic Panel (06/04/2024 4:38 AM EDT) Glucose 118 65 - 199 mg/dL 06/04/2024 5:35 AM EDT [facility] Comment:Glucose Concentratio n >=200 mg/dL plus symptoms is consistent with Diabetes Mellitus. Blood Urea Nitrogen 22(H) 10 - 20 mg/dL 06/04/2024 5:35 AM [facility] Creatinine 1.22 0.80 - 1.50 mg/dL 06/04/2024 5:35 AM [facility] Sodium 137 135 - 145 mMol/L 06/04/2024 5:35 AM [facility] Potassium 3.6 3.5 - 5.0 mMol/L 06/04/2024 5:35 AM [facility] Chloride 97(L) 98 - 107 mMol/L 06/04/2024 5:35 AM [facility] Carbon Dioxide 29 22 - 31 mMol/L 06/04/2024 5:35 AM [facility] Anion Gap 11 5 - 15 mMol/L 06/04/2024 5:35 AM [facility] Calcium 9.0 8.5 - 10.5 mg/dL 06/04/2024 5:35 AM [facility] Est Glomerular Filtration Rate - Male 65 mL/min/1. 73 m?? 06/04/2024 5:35 AM [facility] Comment: This patient's estimated [...] Scanlon MD CHEMISTRY ORDERABLES Performing Organization Address [facility] Co de Phone Number [facility] [place] [address] * Heparin (unfractionated) Level (06/03/2024 8:58 PM EDT) UF Heparin 0.27 IU/mL 06/03/2024 9:33 PM EDT [facility] Comment: Heparin (anti-Xa) levels [...] MD HEMATOLOGY ORDERABLE S Performing Organization Address [facility]/ZIP Co de Phone Number [facility] [place] [address] * POC, GLUCOSE (06/03/2024 8:05 PM EDT) Glucometer, POC 136 65 - 199 mg/dL 06/03/2024 8:05 PM EDT [facility] Comment:Supplemental ranges: <140 mg/dL before meals <180 mg/dL all other times of the day. Blood CAPILLARY BLOOD / Unknown 06/03/2024 8:05 PM EDT 06/03/2024 8:05 PM EDT Delroy Fofana MD POINT OF CARE TEST ORDERABLES Performing Organization Address [facility]/ZIP Co de Phone Number [facility] [place] [address] * POC, GLUCOSE (06/03/2024 5:48 PM EDT) Glucometer, POC 191 65 - 199 mg/dL 06/03/2024 5:48 PM EDT [facility] Comment:Supplemental ranges: <140 mg/dL before meals <180 mg/dL all other times of the day. Blood CAPILLARY BLOOD / Unknown 06/03/2024 5:48 PM EDT 06/03/2024 5:49 PM EDT Delroy Fofana MD POINT OF CARE TEST ORDERABLES Performing Organization Address [facility] Co de Phone Number [facility] [place] [address] * CT Chest wo Contrast (Generic) (06/03/2024 4:33 PM EDT) WORKSTATION ID [id number] RAD Anatomical Region Laterality Modality Chest Computed Tomogra phy Impressions 06/03/2024 4:47 PM EDT Cardiomegaly. Biventricular ICD leads in place. Thank you for letting us participate in the care of this patient. ??If you are a health care provider and have any questions regarding this report, please contact the number below. ??For patients who have questions please contact the health respiratory care instructor that requested your imaging first. ? Narrative 06/03/2024 4:47 PM EDT EXAMINATION: CT [...] patients who have questions please contactthe health respiratory care instructor that requested your imaging first. Electronically signed by: Stuart Aponte MD, [facility]([phone]), at 06/03/2024 4:47 PM Bobby Loja MD IMG CT ORDERABLES * Carotid Duplex, Bilateral (06/03/2024 2:19 PM EDT) VB Text Report Department: Vascular Surgery Lab Patient: [id number] (GEORGE MEHTA) CPT: 22308 Referring Physician: BOBBY LOJA ?? Phone: Indications: [...] Heparin 0.15 IU/mL 06/03/2024 1:13 PM EDT [facility] Comment: Heparin (anti-Xa) levels [...] MD HEMATOLOGY ORDERABLE S Performing Organization Address [facility] Co de Phone Number [facility] [place] [address] * POC, GLUCOSE (06/03/2024 11:14 AM EDT) Glucometer, POC 166 65 - 199 mg/dL 06/03/2024 11:14 AM EDT [facility] Comment:Supplemental ranges: <140 mg/dL before meals <180 mg/dL all other times of the day. Blood CAPILLARY BLOOD / Unknown 06/03/2024 11:14 AM EDT 06/03/2024 11:14 AM EDT Delroy Fofana MD POINT OF CARE TEST ORDERABLES Performing Organization Address [facility] Co de Phone Number [facility] [place] [address] * (ABNORMAL) Troponin-T, High Sensitivity 3 Hour (06/03/2024 10:06 AM EDT) Troponin-T, High Sensitivity 266(H) <=22 ng/L 06/03/2024 10:50 AM EDT [facility] Comment: This patient's troponin [...] troponin value can be found in the [facility] Laboratory Test Catalog Troponin - https://[email or web address]/catalogs/565/files/47816 Reference: [place] Definition of Myocardial Infarction. Journal of the [employer] 2018;72:2605-8161 Troponin-T, HS 3 hr delta 06/03/2024 10:50 AM EDT [facility] Comment:Delta troponin value not calculated, sample collected outside of delta calculation time limit. Blood VENOUS BLOOD SPECIMEN / Unknown IP Care Team Draw / Unknown 06/03/2024 10:06 AM EDT 06/03/2024 10:15 AM EDT Delroy Fofana MD CHEMISTRY ORDERABLE S Performing Organization Address City/State/[facility] Co de Phone Number [facility] [place] [address] * ECHO COMPLETE W CONTRAST (06/03/2024 8:46 AM EDT) Anatomical Region Laterality Modality Cardiac Other 06/03/2024 6:52 AM EDT Narrative 06/03/2024 10:32 AM EDT [address] [place], [place] [id number] ? Echocardiogram Report Name: GEORGE MEHTA ?Study Date: 06/03/2024 06:52 AM : 1955 ? Height: 168 cm ? Account: [id number] Age: 69 yrs ? Weight: 102 kg Gender: Male ?BSA: 2.1 m2 Ordering Physician: SHAHNAZ SCANLON Referring Physician: NEHAL QUINTERO Performed By: Sara Kebede RDCS Reason For Study: STEMI Exam Location: [facility]. Interpretation Summary -Left ventricular systolic function [...] fellow performed study of today's date). Procedure Complete-[id number]. Image enhancement Optison was used for left [...] Ao V2 VTI: 26.5 cm Ao Max Murile: 124.3 cm/sec Ao valve max: 6.2 mmHg [...] Note Jonnie Jordan MD - 06/03/2024 [address] [place] [address] Echocardiogram Report Name: GEORGE MEHTA Raad Study Date: :52 AM : 1955 Height: 168 cm Account: [id number] Age: 69 yrs Weight: 102 kg Gender: Male BSA: 2.1 m2 Ordering Physician: SHAHNAZ SCANLON Referring Physician: NEHAL QUINTERO Performed By: Sara Kebede RDCS Reason For Study: STEMI Exam Location: [facility]. Interpretation Summary -Left ventricular systolic function [...] a fellow performed study of's date). Procedure Complete-[id number]. Image enhancement Optison was used for left [...] 289(H) <=22 ng/L 06/03/2024 9:26 AM EDT [facility] Comment: This patient's troponin [...] troponin value can be found in the [facility] Laboratory Test Catalog Troponin - https://[email or web address]/catalogs/565/files/24919 Reference: [employer] [place] Definition of Myocardial Infarction. Journal of the [employer] 2018;72:2288-4745 Troponin-T, HS 1 hr delta 5 ng/L 06/03/2024 9:26 AM EDT [facility] Comment:The 1 hour Troponin T delta value is the absolute difference between the Troponin T concentrations of the initial and subsequent sample collected between 45 - 120 minutes following the initial collection. Blood VENOUS BLOOD SPECIMEN / Unknown IP Care Team Draw / Unknown 06/03/2024 8:27 AM EDT 06/03/2024 8:37 AM EDT Delroy Fofana MD CHEMISTRY ORDERABLE S [facility] [place] [address] * POC, GLUCOSE (06/03/2024 7:54 AM EDT) Glucometer, POC 195 65 - 199 mg/dL 06/03/2024 7:55 AM EDT [facility] Comment:Supplemental ranges: <140 mg/dL before meals <180 mg/dL all other times of the day. Blood CAPILLARY BLOOD / Unknown 06/03/2024 7:54 AM EDT 06/03/2024 7:55 AM EDT Nuha Rojo MD POINT OF CARE TEST ORDERABLES [facility] [place] [address] * (ABNORMAL) Troponin-T, High Sensitivity (06/03/2024 7:39 AM EDT) Troponin-T, High Sensitivity Initial 284(H) <=22 ng/L 06/03/2024 8:29 AM EDT [facility] Comment: This patient's troponin [...] troponin value can be found in the [facility] Laboratory Test Catalog Troponin - https://one-.testcatalog.org/catalogs/565/files/49580 Reference: [employer] [place] Definition of Myocardial Infarction. Journal of the [employer] 2018;72:4787-6580 Blood VENOUS BLOOD SPECIMEN / Unknown IP Care Team Draw / Unknown 06/03/2024 7:39 AM EDT 06/03/2024 7:48 AM EDT Delroy Fofana MD CHEMISTRY ORDERABLE S [facility] [place] [address] * (ABNORMAL) Troponin-T, High Sensitivity 3 Hour (06/03/2024 5:11 AM EDT) Troponin-T, High Sensitivity 254(H) <=22 ng/L 06/03/2024 5:49 AM EDT [facility] Comment: This patient's troponin [...] troponin value can be found in the [facility] Test Catalog Troponin - [email or web address] Reference: [employer] [place] Definition of Myocardial Infarction. Journal of the [employer] 2018;72:2464-8706 Troponin-T, HS 3 hr delta 46 ng/L 06/03/2024 5:49 AM EDT [facility] Comment:The 3 hour Troponin T delta value is the absolute difference between the Troponin T concentrations of the initial and subsequent sample collected between 2 h: 45 min and 6 h following the initial collection Blood VENOUS BLOOD SPECIMEN / Unknown IP Care Team Draw / Unknown 06/03/2024 5:11 AM EDT 06/03/2024 5:20 AM EDT Shahnaz Scanlon MD CHEMISTRY ORDERABLES [facility] [place] [address] * (ABNORMAL) Troponin-T, High Sensitivity 1 Hour (06/03/2024 3:07 AM EDT) Troponin-T, High Sensitivity 218(H) <=22 ng/L 06/03/2024 3:39 AM EDT [facility] Comment: This patient's troponin [...] troponin value can be found in the [facility] Laboratory Test Catalog Troponin - https://[email or web address]/catalogs/565/files/44599 Reference: [place] Definition of Myocardial Infarction. Journal of the [place] [employer] 2018;72:1784-0317 Troponin-T, HS 1 hr delta 10 ng/L 06/03/2024 3:39 AM EDT [facility] Comment:The 1 hour Troponin T delta value is the absolute difference between the Troponin T concentrations of the initial and subsequent sample collected between 45 - 120 minutes following the initial collection. Blood VENOUS BLOOD SPECIMEN / Unknown IP Care Team Draw / Unknown 06/03/2024 3:07 AM EDT 06/03/2024 3:12 AM EDT Shahnaz Scanlon MD CHEMISTRY ORDERABLES [facility] [place] [address] * XR Chest One View (06/03/2024 2:41 AM EDT) WORKSTATION ID [id number] RAD Anatomical Region Laterality Modality Chest N/A Digital Radiogra phy Impressions 06/03/2024 3:06 AM EDT No radiographically evident acute cardiopulmonary process. Thank you for letting us participate in the care of this patient. ??If you are a health care provider and have any questions regarding this report, please contact the number below. ??For patients who have questions please contact the health respiratory care instructor that requested your imaging first. ? Electronically signed by: Corazon Mauro MD, [facility] ([phone]), at 06/03/2024 3:06 AM Narrative 06/03/2024 3:06 [...] patients who have questions please contactthe health respiratory care instructor that requested your imaging first. Electronically signed by: Corazon Mauro MD, [facility]([phone]), at 06/03/2024 3:06 AM Shahnaz Scanlon MD IMG DX ORDERABLES * Heparin (unfractionated) Level (06/03/2024 2:13 AM EDT) UF Heparin 0.56 IU/mL 06/03/2024 4:13 AM EDT [facility] Comment: Heparin (anti-Xa) levels [...] EDT Shahnaz Scanlon MD HEMATOLOGY ORDERABLE S [facility] [place] [address] * (ABNORMAL) Troponin-T, High Sensitivity (06/03/2024 2:13 AM EDT) Troponin-T, High Sensitivity Initial 208(H) <=22 ng/L 06/03/2024 3:02 AM EDT [facility] Comment: This patient's troponin [...] troponin value can be found in the [facility] Laboratory Test Catalog Troponin - https://[email or web address]/catalogs/565/files/41866 Reference: [place] Definition of Myocardial Infarction. Journal of the [place] [employer]iology 2018;72:9341-6750 Blood VENOUS BLOOD SPECIMEN / Unknown IP Care Team Draw / Unknown 06/03/2024 2:13 AM EDT 06/03/2024 2:32 AM EDT Shahnaz Scanlon MD CHEMISTRY ORDERABLES Performing Organization Address City/[facility]/ZIP Co de Phone Number [facility] [place] [address] * Magnesium (06/03/2024 2:13 AM EDT) Magnesium 0.86 0.69 - 1.07 mMol/L 06/03/2024 3:02 AM EDT [facility] Blood VENOUS BLOOD SPECIMEN / Unknown IP Care Team Draw / Unknown 06/03/2024 2:13 AM EDT 06/03/2024 2:32 AM EDT Shahnaz Scanlon MD CHEMISTRY ORDERABLES [facility] [place] [address] * Basic Metabolic Panel (06/03/2024 2:13 AM EDT) Glucose 126 65 - 199 mg/dL 06/03/2024 3:02 AM [facility] Comment:Glucose Concentratio n >=200 mg/dL plus symptoms is consistent with Diabetes Mellitus. Blood Urea Nitrogen 20 10 - 20 mg/dL 06/03/2024 3:02 AM [facility] Creatinine 1.13 0.80 - 1.50 mg/dL 06/03/2024 3:02 AM [facility] Sodium 139 135 - 145 mMol/L 06/03/2024 3:02 AM [facility] Potassium 4.2 3.5 - 5.0 mMol/L 06/03/2024 3:02 AM [facility] Chloride 101 98 - 107 mMol/L 06/03/2024 3:02 AM [facility] Carbon Dioxide 26 22 - 31 mMol/L 06/03/2024 3:02 AM [facility] Anion Gap 12 5 - 15 mMol/L 06/03/2024 3:02 AM [facility] Calcium 9.8 8.5 - 10.5 mg/dL 06/03/2024 3:02 AM [facility] Est Glomerular Filtration Rate - Male 71 mL/min/1. 73 m?? 06/03/2024 3:02 AM [facility] Comment: This patient's estimated [...] AM EDT Shahnaz Scanlon MD CHEMISTRY ORDERABLES [facility] [place] [address] * (ABNORMAL) CBC (with Diff) (06/03/2024 2:13 AM EDT) White Blood Cell 11.16(H) 4.00 - 9.50 x10(3)/mc L 06/03/2024 2:37 AM EDT [facility] Red Blood Cell 5.09 4.58 - 5.54 x10(6)/mc L 06/03/2024 2:37 AM EDT [facility] Hemoglobin 15.0 13.7 - 16.5 g/dL 06/03/2024 2:37 AM EDT [facility] Hematocrit 47.4 40.5 - 48.5 % 06/03/2024 2:37 AM EDT [facility] Mean Cell Volume 93.1 82.9 - 93.1 fL 06/03/2024 2:37 AM EDT [facility] Mean Cell Hemoglobin 29.5 27.5 - 32.1 pg 06/03/2024 2:37 AM EDT [facility] Mean Cell Hemoglobin Concentration 31.6(L) 32.0 - 35.7 g/dL 06/03/2024 2:37 AM EDT [facility] Platelet 217 145 - 357 x10(3)/mc L 06/03/2024 2:37 AM EDT [facility] Mean Platelet Volume 9.5 7.6 - 12.9 fL 06/03/2024 2:37 AM EDT [facility] RDW Standard Deviation 49.0(H) 36.0 - 45.0 fL 06/03/2024 2:37 AM EDT [facility] RDW coefficient of variation 14.1(H) 11.4 - 13.8 % 06/03/2024 2:37 AM EDT [facility] NRBC% auto 0.0 % 06/03/2024 2:37 AM [facility] NRBC Absolute <0.01 <0.01 x10(3)/mc L 06/03/2024 2:37 AM [facility] Neutrophil % 58.4 % 06/03/2024 2:37 AM [facility] Neutrophil Absolute (ANC) - Automated 6.51(H) 1.70 - 6.10 x10(3)/mc L 06/03/2024 2:37 AM [facility] Lymph % 29.9 % 06/03/2024 2:37 AM [facility] Lymph Absolute 3.34(H) 0.90 - 3.20 x10(3)/mc L 06/03/2024 2:37 AM [facility] Monocyte % 8.1 % 06/03/2024 2:37 AM [facility] Monocyte Absolute 0.90 0.30 - 0.90 x10(3)/mc L 06/03/2024 2:37 AM [facility] Eos % 2.4 % 06/03/2024 2:37 AM [facility] Eos Absolute 0.27 0.00 - 0.40 x10(3)/mc L 06/03/2024 2:37 AM [facility] Basophil % 0.8 % 06/03/2024 2:37 AM [facility] Baso Absolute 0.09 0.00 - 0.10 x10(3)/mc L 06/03/2024 2:37 AM [facility] Immature Gran % 0.4 % 2:37 AM [facility] Immature Gran Absolute 0.05(H) 0.00 - 0.04 x10(3)/mc L 06/03/2024 2:37 AM [facility] Blood VENOUS BLOOD SPECIMEN / Unknown IP Care Team Draw / Unknown 06/03/2024 2:13 AM EDT 06/03/2024 2:31 AM EDT Shahnaz Scanlon MD HEMATOLOGY ORDERABLE S [facility] [place] [address] * Lipid Panel (Reflex Direct LDL) (06/03/2024 2:13 AM EDT) Cholesterol, Total 76 mg/dL 06/03/2024 3:02 AM EDT [facility] Comment: Desirable: < 200 mg/dL Borderline High: 200 - 239 mg/dL High: > or = 240 mg/dL Triglyceride 75 mg/dL 06/03/2024 3:02 AM EDT [facility] Comment: Normal: <150 mg/dL Borderline High: 150-199 mg/dL High: 200-499 mg/dL Very High: > or =500 mg/dL HDL Cholesterol 39 mg/dL 3:02 AM EDT [facility] Comment:Males: High Risk: <4 0 mg/dL LDL Cholesterol 21 mg/dL 3:02 AM EDT [facility] Comment: Desirable: <100 mg/dL Above Desirable: 100-129 mg/dL Borderline High: 130-159 mg/dL High: 160-189 mg/dL Very High: > or =190 mg/dL Note: LDL calculation updated to the NIH LDL formula as of 03/07/2024 Non-HDL Cholesterol 37 mg/dL 06/03/2024 3:02 AM EDT [facility] Comment: Desirable: <130 mg/dL Above Desirable: 130-159 mg/dL Borderline High: 160-189 mg/dL High: 190-219 mg/dL Very High: > or = 220 mg/dL Blood VENOUS BLOOD SPECIMEN / Unknown IP Care Team Draw / Unknown 06/03/2024 2:13 AM EDT 06/03/2024 2:32 AM EDT Narrative [facility] - 06/03/2024 3:02 AM EDT It [...] ACC/AHA Guidelines (most recently Bruce et al. [facility] 05/07/22): * For individuals with atherosclerotic cardiovascular [...] Scanlon MD CHEMISTRY ORDERABLES Performing Organization Address [facility] Co de Phone Number [facility] [place] [address] * (ABNORMAL) APTT (06/03/2024 2:13 AM EDT) Partial Thromboplastin Time 105(HHH) 25 - 37 sec 06/03/2024 4:13 AM EDT [facility] Comment: The PTT is [...] MD HEMATOLOGY ORDERABLE S Performing Organization Address [facility] de Phone Number [facility] [place] [address] * Prothrombin Time (06/03/2024 2:13 AM EDT) Prothrombin Time 11.5 9.4 - 12.5 sec 06/03/2024 4:13 AM EDT [facility] International Normalization Ratio 1.0 <=4.9 06/03/2024 4:13 AM EDT [facility] Comment: An INR < [...] MD HEMATOLOGY ORDERABLE S Performing Organization Address City/[facility]/ZIP Co de Phone Number [facility] [place] [address] * Hepatic Function Panel (06/03/2024 2:13 AM EDT) Albumin 3.8 3.2 - 5.2 g/dL 06/03/2024 3:02 AM EDT [facility] Aspartate Aminotransferase 20 <=39 unit/L 06/03/2024 3:02 AM EDT [facility] Alanine Aminotransferase 12 0 - 55 unit/L 06/03/2024 3:02 AM EDT [facility] Alkaline Phosphatase 76 40 - 130 unit/L 06/03/2024 3:02 AM EDT [facility] Bilirubin, Total 0.4 <=1.3 mg/dL 06/03/2024 3:02 AM EDT [facility] Bilirubin, Direct <0.2 0.0 - 0.3 mg/dL 06/03/2024 3:02 AM EDT [facility] Protein, Total 7.0 6.1 - 8.0 g/dL 06/03/2024 3:02 AM EDT [facility] Blood VENOUS BLOOD SPECIMEN / Unknown IP Care Team Draw / Unknown 06/03/2024 2:13 AM EDT 06/03/2024 2:32 AM EDT Shahnaz Scanlon MD CHEMISTRY ORDERABLES [facility] [place] [address] * (ABNORMAL) pro-Brain Natriuretic Peptide (06/03/2024 2:13 AM EDT) NT-proBNP 1,628(H) <=124 pg/mL 06/03/2024 4:15 AM EDT [facility] Blood VENOUS BLOOD SPECIMEN / Unknown IP Care Team Draw / Unknown 06/03/2024 2:13 AM EDT 06/03/2024 2:32 AM EDT Shahnaz Scanlon MD CHEMISTRY ORDERABLES Performing Organization Address City/[facility]/ZIP Co de Phone Number [facility] [place] [address] * Phosphorus (06/03/2024 2:13 AM EDT) Phosphorus 4.4 2.5 - 4.5 mg/dL 06/03/2024 3:02 AM EDT [facility] Blood VENOUS BLOOD SPECIMEN / Unknown IP Care Team Draw / Unknown 06/03/2024 2:13 AM EDT 06/03/2024 2:32 AM EDT Shahnaz Scanlon MD CHEMISTRY ORDERABLES Performing Organization Address [facility] Co de Phone Number [facility] [place] [address] * EKG 12 Lead (06/03/2024 1:45 AM EDT) Ventricular rate 63 BPM MUSE SYSTEM Atrial Rate 63 BPM MUSE SYSTEM P-R Interval 168 ms MUSE SYSTEM QRS Duration 96 ms MUSE SYSTEM Q-T Interval 400 ms MUSE SYSTEM QTC Calculated (Bezet) 409 ms MUSE SYSTEM Calculated P [place] 65 degrees MUSE SYSTEM Calculated R [place] 70 degrees MUSE SYSTEM Calculated T [place] -86 degrees MUSE SYSTEM INTERPRETATION Atrial-sensed ventricular-paced rhythm Abnormal ECG No previous ECGs available I personally reviewed the tracing and edited the fellows interpretation Confirmed by fellow Sunni Agudelo ([id number]) on 06/04/2024 3:55:40 PM Confirmed by MD Tamia, Stuart Perry ([id number]) on 06/05/2024 11:46:48 AM MUSE SYSTEM 06/03/2024 1:45 AM EDT 06/05/2024 11:46 AM EDT Shahnaz Scanlon MD ECG ORDERABLES Performing Organization Address City/[facility]/ZIP Co de Phone Number MUSE SYSTEM * CARDIAC CATHETERIZATION (06/03/2024 12:42 AM EDT) Anatomical Region Laterality Modality Other Narrative 06/04/2024 2:22 PM EDT ?[facility] ? Cardiac Catheterization/Intervention Report ? Patient Name: Tyson, George L. ? Procedure Date: 06/02/2024 ? A #: [id number] ? Primary Physician: Nuha Shen I ? Case #: [id number] ? File Name: [id number] ? Catheterization Order Number: [id number] ? [facility] ? Final Report [place], [place] ? Patient Name: ? George L. Tyson ? ID#: ?[id number] ? : ?1955 ? Procedure Date: ? June 02, 2024 ? Case #: ? [id number] ? Room: ? 5 ? Case Physician: [...] procedure was Emergent. The indication for ?the senior laboratory technician visit is ACS less than [...] ?3.5 guiding catheter and a 3.5 Fr [facility] [place] 20 Mhz using Manual ?pullback. ??Imaging was [...] 3.5 guiding catheter and a 3.5 Fr [facility] [place] 20 Mhz using ?Manual pullback. ??Imaging was [...] Procedure Note Nuha Shen MD - 07/20/2024 [facility] Cardiac Catheterization/Intervention Report Patient Name: Tyson Georgedennis Multani Procedure Date: 06/02/2024 A #: [id number] Primary Physician: Nuha Shen I Case #: [id number] File Name: [id number] Catheterization Order Number: [id number] [facility] FinalReport [place], [place] Patient Name: George Mehta ID#:[id number] :1955 Procedure Date: June 02, 2024 Case [...] was designated as ASA Class IV. The [facility] clinicalfrailty scale is 5: Mildly Frail. Diagnostic Tests: Electrocardiography: EKG was assessed by ECG. EKG was Abnormal. EKG showed STDeviation >= 0.5 mm. Medications Prior to Procedure: Sacubitril and Valsartan, Aspirin, Beta Erik, Statin and Thrombolytic (any). Indications for Diagnostic Cath: The priority of the diagnostic procedure was Emergent. Theindication for the senior laboratory technician visit is ACS less than [...] units of heparin were administered. A total [id number] of Omnipaque were opened, 84cc of Omnipaque were administered kki44pl of Omnipaque were wasted. Radiation: Fluoro time [...] 3.5 guiding catheter and a 3.5 Fr [facility] [place] 20 Mhz usingManual pullback. Imaging was successful. [...] 3.5 guiding catheter and a 3.5 Fr [facility] [place] 20 Mhzusing Manual pullback. Imaging was successful. Indication: IVUS performed for pre intervention planning. Findings Pre-Intervention: scattered plaque, calcification and chob100 degrees calcification. Findings Post-Intervention: Stent not imaged [...] * POC, GLUCOSE (06/02/2024 11:31 PM EDT) [facility] Glucometer, POC 156 65 - 199 mg/dL 06/02/2024 11:31 PM EDT [facility] Comment:Supplemental ranges: <140 mg/dL before meals <180 mg/dL all other times of the day. Blood CAPILLARY BLOOD / Unknown 06/02/2024 11:31 PM EDT 06/02/2024 11:31 PM EDT Nuha Rojo MD POINT OF CARE TEST ORDERABLES [facility] [address] [place] [address] documented in this encounter Visit Diagnoses Not [...] (50 mcg/mL) multi-dose injection PRN, Starting on Fri06/02/24 at 2325, Until Fri06/03/24 at 0009, Intra-Operative (Intra-Procedure), Routine Given 06/02/2024 11:25 PM EDT 50 mcg 20-Other (document i n comment section) furosemide (Lasix) tablet 60 mg 60 mg, [...] Buccal, EVERY 15 MIN PRN, Starting on Tu06/15/24 [...] (porcine) (1,000 units/mL) injection PRN, Starting on Fri06/02/24 at 2326, Until Miguelina 06/03/24 at 0009, Intra-Operative (Intra-Procedure), Routine Given 06/02/2024 11:26 PM EDT 5,000 Units 20-Other (document i n comment section) insulin glargine-ygfn (Semglee) (100 unit/mL) subcutaneous injection vial 30 Units 30 Units, Subcutaneous, DAILY, First dose (after last modification) on 06/21/24 at 0900, Until Discontinued, Routine Given 06/21/2024 8:41 AM EST 30 Units insulin lispro (HumaLOG;Admelog) (100 unit/mL) subcutaneous [...] PM EST 1 patch 11- Chest (Left) magnesium hydroxide (Milk of Magnesia) (80mg/mL) oral [...] (1 mg/mL) multi-dose injection PRN, Starting on Fri06/02/24 at 2324, Until Miguelina 06/03/24 at 0009, Intra-Operative (Intra-Procedure), Routine Given 06/02/2024 11:24 PM EDT 1 mg 20-Other (document i n comment section) nitroGLYcerin 100 mcg/mL intracoronary dilution PRN, Starting on Fri06/02/24 at 2324, Until Miguelina 06/03/24 at 0009, Intra-Operative (Intra-Procedure), Routine Given 06/02/2024 11:24 PM EDT 150 mcg oxyCODONE (Roxicodone) tablet 10 mg 10 mg, [...] 2100, Last dose on Fri06/23/24 at 0900, Cage Maker recommended duration is 3 days., Routine Given [...] 8:02 PM EST 2 tablets sodium chloride (Alcona) 0.65 % nasal spray 1 spray 1 [...] Given 06/20/2024 5:31 AM EST 5 mLs verapamiL (Isoptin) (2.5 mg/mL) injection PRN, Starting on Fri06/02/24 at 2324, Until Fri06/03/24 at 0009, Administer over 2 Minutes, Intra-Operative (Intra-Procedure) Given 06/02/2024 11:24 PM E DT 2.5 mg documented in this encounter Active and Recently [...] Lane, JAMIE) 0812 (Given - Provider: Michelle Orozco RN) [...] on Fri06/20/24 at 0900, Until Discontinued, Routine 0822 (Given - Provider: Michelle Orozco RN) insulin glargine-ygfn (Semglee) (100 unit/mL) subcutaneous injection vial 45 Units (CANCELED) 45 Units, Subcutaneous, DAILY, First dose (after last modification) on 06/19/24 at 0900, Until Discontinued, Routine 0821 [...] RN)1237 (Given - Provider: Mary Lou Lane, JAMEI)1802 (Given - Provider: Mary Lou Lane RN) [...] 08 (Given - Provider: Michelle Orozco RN) 09 (Not Given - Provider: Shazia Mcdonald RN - Reason: Patient/family refused) oxymetazoline (Afrin) 0.05 % nasal spray 2 spray 2 spray, Each Nare, 2 TIMES DAILY, 6 doses, First dose on Fri06/20/24 at 2100, Last dose on Fri06/23/24 at 0900, Cage Maker recommended duration is 3 days., Routine 2043 [...] Lou Lane RN) 08 (Given - Provider: Michlele Orozco RN) 08 (Given - Provider: Shazia Mcdonald, JAMIE) potassium [...] day 1, Routine 0823 (Given - Provider: Mar yLou Lane RN)2100 (Not Given - Provider: Christina [...] oral route first line., Routine sodium chloride (Alcona) 0.65 % nasal spray 1 spray 1 [...] 6 hours upon arrival to Unit. Give OH if unable to take PO, Routine Group [...] Routine documented in this encounter Care Teams Motion Picture Photographer Relationship Specialty Start Date End Date Mauro Berumen MD [address] [place] [address] PCP - General Family Medicine 06/02/24 documented as of this encounter
--- OUTSIDE RECORDS SUMMARY | 2024-08-04 20:36 | XMS_ITS | Encounter Summary ---
Author Organization [facility] Address [facility] [place] [address] Care Team Providers Care Honing Machine Operator Semiautomatic Name Role Phone Mauro Berumen MD Primary Care Provider [phone] Encounter Details Date Type Department Care Team (Late st Contact Info) Description 06/02/[address] [facility] [place] [phone] Sascha Silva MD [facility] [place] [address] Social History Tobacco Use Types Packs/Day Years Used Date Smoking Tobacco: Never Assessed [facility] Utilities Answer Date Recorded In the [...] any time in the past 12 m [facility], were you homeless or living in a jail (including now)? No 06/03/2024 IPV Inpatient Questions [...] as of this encounter Progress Notes * Sascha Silva MD - 06/02/2024 9:42 PM EDT STEMI Alert Note Index Event Data If Hospital to which patient presented= [facility]: ED Walk In Date and Time of First Medical Contact: 06/02/2024 9:20 PM Medical History (prior to current presentation) Myocardial Infarction: Yes Diabetes Mellitus: Yes Prior Percutaneous Coronary Intervention: Yes Prior Coronary Artery Bypass Graft: No Presenting Symptoms per OSH/EMS Free Text 855 PM acute on set pressure on chest. Presented to ED. Appears ashen. No contraindicationst to lytics. No cabg, 3X RI with JENNA, most recent 5 years ago. History of T2DM, CHF. Melanoma, PAD. S/p PPM unclear reasons. Time of continuous symptom onset to ED presentation Chest Pain: Yes Shortness of breath: No ECG EKG Interpretation(choose all that apply): Anterior ST elevation Meets Strict STEMI ECG Criteria New ST elevation of >1 mm in other contiguous leads including limb leads: No Evidence of Q-wave infarction: Yes ST depressions with prominent R wave in V2-V3 (suspected posterior infarct): No Exam at Presentation HR: 80 SBP: 114 DBP: 47 Killip class: I (no rales) YUE Risk Score for STEMI Age: 65-74 years (2 points) Diabetes, Hypertension or Angina: Yes (1 point) Systolic BP <100 mmhg: No (0 points) Heart rate >100: No (0 points) Killip Class II-IV (JVD or any pulmonary exam findings of CHF): No (0 points) Weight <67 kg (147 lbs): No (0 points) Anterior ST Elevation or LBBB: Yes (1 point) Time to treatment > 4 hours: No (0 points) Total Points and % 30 day mortality risk (choose one): 4 points= 7.3% Treatment Beta Sathya (Any): None Asprin (Any): Yes Asprin Date/Time: 06/02/2024 9:20 PM Adjunctive PLT Inhibitor: Clopidogrel 300mg Anti-thrombotic used: Unfractionated Heparin Thrombolytic: TNK(tenecteplase) Thrombolytic Dose: Full dose Thrombolytic Date/Time: 06/02/2024 9:59 PM Contraindications to thrombolytic: Not contraindicated Plan Plan Detail: Plavix 300 TNK Metoprolol 25mg STEMI alert 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
--- OUTSIDE RECORDS SUMMARY | 2024-08-04 20:36 | XMS_ITS | Continuity of Care Document ---
Author Organization [place] [facility] Address [address] [place] [address] Assessment No assessment recorded. Plan of Treatment Reminders Order Date Submit Date Provider Last Modified By Organization Details Last Modified Time Details Appointments Office Visit 30 2024 08:30A M MAURO SANTOS Not available Not available Not available Lab hemoglobi n A1C, fingersti ck 2023 024 [facility], [address] [place] [address], [id number], 06/24/2024 12:05:37 Referral None recorded. Procedures None recorded. Surgeries None recorded. Imaging None recorded. Medication Orders None recorded. Patient TargetsNo targets recorded. Patient Instructions Encounter Date Encounter Id Patient Instructions Last Modified By Organization Details Last Modified Time 06/24/2024 [id number] Dear Arturo Mehta, Thank you for visiting us on June 24, 2024. We appreciate your commitment to improving your health and managing your complex medical conditions. Here is a summary of the randolph instructions and follow-up care discussed during your appointment: - Continue taking Clopidogrel as prescribed for one year post-CABG. - Maintain use of Ibuprofen, two pills three times a day, for pain management. - Utilize medicated patches like lidocaine for additional pain relief if needed. - Follow up with cardiac surgery on July 20 at [facility] for further evaluation and potential clearance to drive. - Schedule a cardiology appointment with Dr. Kristen Cardenas every six months. - Monitor and manage your diabetes closely; ensure your blood sugar levels are stable. - Physical therapy evaluation is scheduled for tomorrow to assess mobility and rehabilitation needs. - Continue using Atorvastatin for cholesterol management. - Ensure a hematology consult and psychiatric evaluation as needed. - Keep an eye on wound care and use bacitracin or Neosporin if directed. - Engage in cardiac rehabilitation three times a week, pending clearance from your visiting nurse. - Upload recent blood sugar readings via the machine to our system for review and possible adjustment of your diabetes treatment plan. - Next appointment in three months to review progress and adjust treatments as necessary. Please ensure to follow these instructions carefully and keep us updated on any changes in your health. If you have any questions or concerns, do not hesitate to contact our office. Best regards, Dr. Mauro Santos MD Family Medicine jdege Not available 06/24/2024 13:38:05 Reason for Referral None Reported. Results Created Date Observation Date Name Description Value Unit Range Abnormal Flag Note LastModifiedBy Organization Detail LastModifiedTime 06/24/20 24 06/24/2024 hemog lobin A1C, finge rstic k hemoglobin A1C 7.4 % <5.7 Not Available [address], [address], 06/24/2024 11:59:16 06/02/20 24 06/02/2024 vrad repor t Patien t Name: Erica Hernandez Unit #: [id number] Loc: ER Orderi ng Provid er: Acctrace t #: [id number] Status : REG ER Primar y Care Provid er: Jack Santos M.D. Date of Exam: Sex: M : 1954 Age: 69 Exam(s ) PROCED URE INFORM ATION: Exam: XR Chest Exam date and time: 2023 9:55 PM Age: 69 years old Clinic al indica tion: Other: Chest pain TECHNI QUE: Imagin g protoc ol: Radiol ogic exam of the chest. Views: 1 view. COMPAR TARAH: No releva nt prior studie s availa ble. FINDIN GS: Tubes, cathet ers and device s: Bivent ricula r cardia c pacema ker withou t gross hardwa re compli cation . Lungs: Normal pulmon asif expans ion. Pulmon asif vascul ature grossl y normal . No gross pulmon asif infilt rates or edema patter n. Pleura l spaces : No pleura l effusi on. No pneumo thorax . Heart/ Medias tinum: Heart size normal . No trache al/med iastin al shift. Bones/ joints : No acute osseou s abnorm alitie s are identi fied. IMPRES JANELL: No acute thorac ic proces s. Dictat ed and Authen ticate d by: Elliott Hardy MD. Lanette ng:Mikey Luque MD Access ion#=[id number] Ordere d By: CC: ------ ------ ------ ------ ------ ------ ------ ------ ------ ------ ------ ------ ---- Dictat ed By: Report s vrad 2154 Transc ribed By: Di Merge 2154 This is privil eged, confid ential inform ation intend ed only for the provid er named. Any use or distri bution by any person other than this provid er is strict ly prohib ited. If you receiv e this report in error, please notify us immedi ately at and return the origin al report to us at the addres s above. Thank- you. sergio [facility] [address], [place], [address] 06/07/2024 08:13:56 06/03/2006/03/2024 x-ray imagi ng repor t Patien t Name: Erica Hernandez Unit #: [id number] Loc: ER Orderlisbeth bernard Provid er: Moises Hua Acctrace t #: [id number] Status : DEP ER Primar y Care Provid er: Jack Santos M.D. Date of Exam: Sex: M Admiss ion Date: : 1954 Age: 69 Exam(s ) XR PORTAB LE CHEST AP EXAM: XR PORTAB LE CHEST AP CLINIC AL HISTOR Y: chest pain TECHNI QUE: 2D digita l imagin g was perfor med. COMPAR TARAH: No exams were availa ble for compar tarah FINDIN GS: LUNGS: Clear. No pleura l abnorm ality seen. HEART: Normal size. Pacema ker. AORTA: Normal diamet er. BONES: Unrema rkable for age. Soft tissue s: Unrema rkable . IMPRES JANELL: No acute findin gs. DATA REPOSI TORY: RADIAT ION DOSE DELIVE RED: Ordere d By: Moises Hua CC: ------ ------ ------ ------ ------ ------ ------ ------ ------ ------ ------ ------ - Dictat ed By: Kelly Cardona 822 Transc ribed By: Maria Teresa Moser 822 This is privil eged, confid ential inform ation intend ed only for the provid er named. Any use or distri bution by any person other than this provid er is strict ly prohib ited. If you receiv e this report in error, please notify us immedi abigailly at [phone] and return the origin al report to us at the addres s above. Thank- you. INTERFACE [facility] [address] , [place], [address] 06/03/2024 08:29:41 Result Notes None recorded. Problems Name Problem SNOMED Code Status Onset Date Resolution Date Notes Provider Name and Address Organization Details Recorded Time Coronary artery bypass grafts x 3 Active [address], [place], [address], [facility], [facility] 4 11:27:04 Type 2 diabetes mellitus 44630140 Active [address], [place], [address], [facility]. 4 16:23:15 Coronary arterioscle rosis 29274480 Active 2023 DC x 3, with stents Pacer AICD MD [address], [place], [address], [facility] 4 23:10:58 Essential hypertensio n 43283887 Active [address], [place], [address], [facility] 4 23:10:54 Chronic left-sided congestive heart failure 2399519 Active 2023 ICD. last echo 50% up from 35% post DC MD [address], [place], [address], [facility] 4 18:10:13 Malignant melanoma 601749548 Active 2016 left scalp MD [address], [place], [address], [facility] 4 14:10:50 Adult health examination Active [address], [place], [address], [facility] 4 11:43:13 Onychomycos is 374959794 Active 2023 toenails MD [address], [place], [address], [facility] 4 11:47:27 Neuropathy due to diabetes mellitus 797815404 Active [address], [place], [address], [facility] 4 16:23:51 Mixed anxiety and depressive disorder 019459573 Active [address], [place], [address], [facility] 4 16:27:39 Ambulatory continuous glucose monitoring of interstitia l tissue fluid Active [address], [place], [address] [facility] 4 23:10:45 Hearing loss 06285360 Active [address], [place], [address], [facility] 4 23:11:04 Notes:Some problems listed i n Document: #[id number] could not be added to this patient's chart. Please review this document and add these problems to the patient's chart manually as needed. Problem Notes None recorded. Medical Equipment None Reported. Allergies No known drug allergies Medications Name Sig Start Date Stop Date Status Note LastModified by Organization Details LastModified Time atorvasta tin 80 mg tablet TAKE ONE TABLET BY MOUTH EVERY DAY active Not Available Not Available No t Available acetamino phen 325 mg tablet Take 3 tablets every 6 hours by oral route as needed. active [place] [facility] [place]24 Not Available Not Available Not Available carvedilo l 12.5 mg tablet TAKE ONE TABLET BY MOUTH TWICE A DAY active Not Available Not Available No t Available glipizide 10 mg tablet TAKE ONE TABLET BY MOUTH EVERY DAY active Not Available Not Available No t Available clopidogr el 75 mg tablet TAKE ONE TABLET BY MOUTH EVERY DAY active Not Available Not Available No t Available metformin 1,000 mg tablet TAKE ONE TABLET BY MOUTH TWICE A DAY active Not Available Not Available No t Available diphenhyd ramine 25 mg tablet Take 1 tablet as needed by oral route at bedtime. active Not Available Not Available No t Available furosemid e 20 mg tablet Take 1 tablet every day by oral route. active Not Available Not Available No t Available ketoconaz ole 2 % topical cream APPLY 1 APPLICAT ION TOPICALL Y TO TOENAILS ONCE A DAY active Not Available Not Available No t Available Adult Low Dose Aspirin 81 mg tablet,de layed release Take 1 tablet every day by oral route. 2023 active Not Available Not Available Not Avai lable insulin lispro (U-100) 100 unit/mL subcutane ous pen Inject 20 units 3 times a day by subcutan eous route with meal(s). active Not Available Not Available No t Available escitalop eric 20 mg tablet TAKE ONE TABLET BY MOUTH EVERY DAY active Not Available Not Available No t Available Novolog FlexPen U-100 Insulin aspart 100 unit/mL (3 mL) subcutane ous Inject 20 units 3 times a day by subcutan eous route with meal(s). 11/30 completed Not Available Not Available Not Available Adult Low Dose Aspirin 1 po daily 03/02 completed Not Available Not Available Not Available diclofena c 1 % topical gel APPLY 2 GRAMS TO THE AFFECTED AREA(S) BY TOPICAL ROUTE 4 TIMES PER DAY active Not Available Not Available No t Available cholecalc iferol (vitamin D3) 50 mcg (2,000 unit) capsule Take 1 capsule every day by oral route. 2023 active Not Available Not Available Not Avai lable cholecalc iferol (vitamin D3) 50 mcg (2,000 unit) tablet TAKE 1 TABLET BY MOUTH EVERY DAY IN THE MORNING 02/25 completed Not Available Not Available Not Available guaifenes in ER 600 mg tablet, extended release 12 hr Take 1 tablet every 12 hours by oral route. active Per [facility] [place] 06/21/24 Not Available Not Available Not Available Jardiance 25 mg tablet TAKE ONE TABLET BY MOUTH EVERY DAY active Not Available Not Available No t Available Entresto 49 mg-51 mg tablet TAKE ONE TABLET BY MOUTH TWICE A DAY active Not Available Not Available No t Available Tresiba FlexTouch U-100 insulin 100 unit/mL (3 mL) subcutane ous pen INJECT 50 UNITS UNDER THE SKIN ONCE DAILY AT BEDTIME active Stopped per [facility] 06/21/24 and decrease d to 30 units daily Not Available Not Available Not Available BD Ultra-Fin e Micro Pen Needle use as directed active Not Available Not Available No t Available BD Sonia 2nd Gen Pen Needle 32 gauge x USE DIRECTED active Not Available Not Available No t Available FreeStyle Willem 2 Sensor kit active Not Available Not Available Not Available Vitals Date Recorded Body height Body mass index (BMI) Body weight Body temperature Oxygen saturation Oxygen saturation in Arterial blood by Pulse oximetry Heart rate Systolic blood pressure Diastolic blood pressure Provider Name and Address Organization Details Last Updated DateTime 4 167.64 cm 34.4 kg/m2 90744.1 7 g 97.5 [degF] 98 % 98 % 88 /min 124 mm[Hg] 78 mm[Hg] JENNIFER SORENSEN MA [facility] 4 11:13:30 Social History None recorded. Functional Status None recorded. Mental Status None recorded. Family History Nothing Reported. Medical History No medical history recorded. Immunizations Vaccine Type Date Status Note Provider Nam e and Address Organization Details Recorded Time COVID-19, mRNA, LNP-S, PF, jeferson-sucrose, 30 mcg/0.3 mL 4 completed MD [address], [place], [address], [facility] 08/30/2023 19:29:40 Tdap 4 completed MD [address], [place], [address], [facility] 12/01/2023 18:15:36 Influenza, high-dose, trivalent, PF 4 completed GUERO ANTHONY, [facility] 05/18/2024 11:35:26 COVID-19, mRNA, LNP-S, PF, jeferson-sucrose, 30 mcg/0.3 mL 4 completed GUERO ANTHONY, [facility] 05/18/2024 11:35:26 Pneumococcal conjugate PCV20, polysaccharide [id number] conjugate, adjuvant, PF 3 completed ANDRÉS DOYLE, [facility] 08/12/2023 15:42:12 influenza, unspecified formulation 3 completed ANDRÉS DOYLE, [facility] 08/26/2023 11:13:50 Past Encounters Encounter ID Performer Location Encounter Start Date Encounter Closed Date Diagnosis/Indication Diagnosis SNOMED-CT Code Diagnosis ICD10 Code [id number] MAURO SANTOS MD [address] [address] 06/24/2024 10:27:47 06/24/2024 11:47:01 Type 2 diabetes mellitus 62329332 E11.9 Coronary arteriosclerosis 90745277 I25.10 Essential hypertension 15816269 I10 Health Concerns Section Related Observation LastModified by Organization Danywhit ls LastModified Time None Recorded Concern Status LastModified by Organization Details LastModified Time None Recorded Payers Encounter Date Sequence Insurance Name Policy Number Policy Suazo Covered Member ID Suazo Member ID Guarantor Name 06/24/2024 1 [facility] (MEDICARE REPLACEMENT/A DVANTAGE - PPO) [id number] Arturo Mehta [id number] Arturo Mehta Notes Date Note Type Note Provider Name and Address Organization Details Recorded Time 06/24/2024 text/html The patient, Karsten Mehta, a 69-year-old male with a history of diabetes, heart disease, heart attacks, stents, and recent hospitalization for a STEMI, presents for a follow-up visit. He underwent a CABG on June 13 and has a pacemaker. The patient reports feeling okay but is still adjusting to his post-surgery condition. He has been walking outside and experiencing some soreness in his chest, which he manages with ibuprofen and lidocaine patches as needed. The patient's blood sugars have been fluctuating, with a recent morning reading of 200 and an afternoon reading of 50. He is using a continuous glucose monitor but has not been able to upload the data to the clinic. The patient has a history of colon cancer screenings, with the last colonoscopy performed over a year ago, but the exact date is unknown. He also has a history of neuropathy, asthma, psoriasis, heart failure, and a pacemaker. The patient denies any shortness of breath, increased swelling, or chest pain other than soreness. He has some wounds on his leg from the recent surgery, which appear clean and are not infected. The patient is not currently using any topical antibiotics on the wounds. MAURO SANTOS MD [address], [place], [address], [facility]. 06/29/2024 10:37:50
--- OUTSIDE RECORDS SUMMARY | 2024-08-04 20:36 | XMS_ITS | Clinical Summary ---
Author Organization [facility] Address [address] [place] [address] Care Team Providers Care Geneticist Name Role Phone Jesu Guerra [facility] Primary Care Provider [phone] Social History Tobacco Use Types Packs/Day Years Used Date Smoking Tobacco: Never Assessed Sex and Gender Information Value Date Recorded Sex Assigned at Not on file Legal Sex Male 23:22 EDT Gender Identity Not on file Sexual Orientation Not on file Plan of Treatment Health Maintenance Due Date Last Done Comments Hepatitis C Screen 1955 Fall Risk Screening 2022 COVID-19 Vaccine (2023-25 season) 2024 RSV Immunization ( o r 60+ Years) (1 - 1-dose 75+ series) 2032 Insurance [employer] MEDICARE Care Teams Geneticist Relationship Specialty Start Date End Date Jesu Guerra, [place] [address] [place] [phone] PCP - General Family Medicine - Primary Care 10/03/23
--- OUTSIDE RECORDS SUMMARY | 2024-08-04 20:36 | XMS_ITS | Encounter Summary ---
Author Organization [facility] Address [facility] [place] [address] Care Team Providers Care English Lecturer Name Role Phone Mauro Berumen MD Primary Care Provider [phone] Encounter Details Date Type Department Care Team (Late st Contact Info) Description 06/02/2024 External Results Administration [facility] [place] [phone] Social History Tobacco Use Types Packs/Day Years Used Date Smoking Tobacco: Never Assessed [facility] Utilities Answer Date Recorded In the past 12 months has th e electric, gas, oil, or water [employer] threatened to shut off services in your [...] any time in the past 12 m [facility], were you homeless or living in [...] Procedure Name Priority Date/Time Associated Diagnosis Comments MISC EXTERNAL CARDIOLOGY RESULT Routine 06/02/2024 9:54 PM EDT documented in this encounter Results * External Cardiology Result (06/02/2024 9:54 PM EDT) Anatomical Region Laterality Modality Other Historical Provider EXTERNAL CARDIOLO GY RESULT documented in this encounter Visit Diagnoses Not on filedocumented in this encounter Care Teams English Lecturer Relationship Specialty Start Date End Date Mauro Berumen MD [address] [place] [address] PCP - General Family Medicine 06/02/24 documented as of this encounter
--- OUTSIDE RECORDS SUMMARY | 2024-08-04 20:36 | XMS_ITS | Encounter Summary ---
Author Organization [facility] Address [address] [place] [address] Care Team Providers Care Social Research Assistant Name Role Phone Jesu Guerra [facility] Primary Care Provider [phone] Encounter Details Date Type Department Care Team (Late st Contact Info) Description 10/31/2023 Lab Requisition [facility] Pathology & Laboratory Medicine - [facility] [address] [place] [address] Yousif Carlin PA [address] [place] [address] [address] [place] [id number] Melanocytic nevi, unspecified Social History Tobacco Use [...] management options, if applicable. 11/04/2023 9:43 EDT [facility] Final Diagnosis A. SKIN OF CHEEK, LEFT, SHAVE BIOPSY: - Seborrheic keratosis, pigmented. 11/04/2023 9:43 EDT [facility] Attestation By the signature below, the attending physician certifies that they have 1) personally conducted a gross and/or microscopic examination of the described specimen(s), and/or personally interpreted the results of laboratory testing of the described specimen(s), and 2) personally rendered or confirmed the above diagnosis. 11/04/2023 9:43 [facility] at 0943 Microscopic Description [...] dermis and patchy lichenoid inflammation. 11/04/2023 9:43 [facility] Clinical History Atypical nevus, history melanoma; clinical diagnosis code: D22.9 11/04/2023 9:43 [facility] Gross Description A. Received in formalin labelled with proper patient identification (initials K, K) and L cheek is a 1.3 x 1.0 x 0.1 cm irregular shave of mottled rodriguez white to dark brown skin. The margin is inked. The specimen is trisected and entirely submitted in A1. HENOK GOLDEN(ASC) 11/03/2023 9:00 11/04/2023 9:43 [facility] Performing Lab [facility] 11/04/2023 9:43 [facility] Scanned Images 11/04/2023 9:43 T [facility] Tissue SPECIMEN FROM SKIN / Unknown 10/31/2023 14:10 EDT 10/31/2023 23:24 EDT us Yousif WHITING PATHOLOGY ORDERABLES Final Result [facility] [address] [place] [address] documented in this encounter Visit Diagnoses Diagnosis Melanocytic nevi, unspecified documented in this encounter Care Teams Social Research Assistant Relationship Specialty Start Date End Date Jesu Guerra, DNP [address] [place] [address] PCP - General Family Medicine - Primary Care 10/03/23 documented as of this encounter
--- OUTSIDE RECORDS SUMMARY | 2024-08-04 20:36 | XMS_ITS | Continuity of Care Document ---
Author Organization [facility] Address [address] [place] [id number] Assessment No assessment recorded. Plan of Treatment Reminders Order Date Submit Date Provider Last Modified By Organization Details Last Modified Time Details Appointments Office Visit 2024 08:30A M BEATRIS SANTOS Not available Not available Not available Lab None recorded . Referral None recorded . Procedures None recorded . Surgeries None recorded . Imaging None recorded . Medication Orders None recorded . Patient TargetsNo targets recorded. Patient InstructionsNo instructions recorded. Reason for Referral None Reported. Results Created Date Observation Date Name Description Value Unit Range Abnormal Flag Note LastModifiedBy Organization Detail LastModifiedTime 06/02/20 24 06/02/2024 vrad repor t Patien t Name: Erica Hernandez Unit #: [id number] Loc: ER Orderi ng Provid er: Accoun t #: [id number] Status : REG ER Primar y [...] ticate d by: Elliott Hardy MD. Lanette bernard:Mikey Luque MD Access ion#=[id number] Ordere d By: CC: ------ ------ [...] error, please notify us immedi abigailly at and return the origin al report to us at the addres s above. Thank- you. sergio [facility] [address], [place], [address] 06/07/2024 08:13:56 06/03/20 24 06/03/2024 x-ray imagi ng repor t Patien t Name: Erica Hernandez Unit #: [id number] Loc: ER Lanette bernard Provid er: Moises Hua Acctrace t #: [id number] Status : DEP ER Primar y Care [...] error, please notify us immedi abigailly at and return the origin al report to us at the addres s above. Thank- you. INTERFACE [facility] [address] [facility] , [place], [address] 06/03/2024 08:29:41 Result Notes None recorded. Problems Name Problem SNOMED Code Status Onset Date Resolution Date Notes Provider Name and Address Organization Details Recorded Time Coronary artery bypass grafts x 3 Active [address], [place], [address] , [facility] 4 11:27:04 Type 2 diabetes mellitus 72428073 Active [address], [place], [address], [facility]. 4 16:23:15 Coronary arterioscle rosis 25228072 Active 2023 WA x 3, with stents Pacer AICD MD [address], [place], [address], [facility]. 4 23:10:58 Essential hypertensio n 23431090 Active [address], [place], [address], [facility]. 4 23:10:54 Chronic left-sided congestive heart failure 0371930 Active 2023 ICD. last echo 50% up from 35% post WA MD [address], [place], [address], [facility]. 4 18:10:13 Malignant melanoma 700051183 Active 2016 left scalp MD [address], [place], [address], [facility]. 4 14:10:50 Adult health examination Active [address], [place], [address], [facility]. 4 11:43:13 Onychomycos is 987914646 Active 2023 toenails MD [address], [place], [address], [facility]. 4 11:47:27 Neuropathy due to diabetes mellitus 317053544 Active [address], [place], [address], [facility]. 4 16:23:51 Mixed anxiety and depressive disorder 064745212 Active [address], [place], [address], [facility] 4 16:27:39 Ambulatory continuous glucose monitoring of interstitia l tissue fluid Active [address], [place], [address], [facility] 4 23:10:45 Hearing loss 96337541 Active [address], [place], [address], [facility] 4 23:11:04 Notes:Some problems listed i n Document: #[id number] could not be added to this patient's [...] by oral route as needed. active Per [facility] d/c 06/21/24 Not Available Not Available Not [...] 12 hours by oral route. active Per [facility] d/c 06/21/24 Not Available Not Available Not [...] ONCE DAILY AT BEDTIME active Stopped per [facility] 06/21/24 and decrease d to 30 units daily Not Available Not Available Not Available BD Ultra-Fin e Micro Pen Needle use as directed active Not Available Not Available No t Available BD Sonia 2nd Gen Pen Needle 32 gauge x USE DIRECTED active Not Available Not Available No t Available FreeStyle Willem 2 Sensor kit active Not Available Not Available Not Available Vitals None Recorded Social History None recorded. Functional Status None recorded. Mental Status None recorded. Family History Nothing Reported. Medical History No medical history recorded. Immunizations Vaccine Type Date Status Note Provider Nam e and Address Organization Details Recorded Time COVID-19, mRNA, LNP-S, PF, jeferson-sucrose, 30 mcg/0.3 mL 4 completed MD [address], [place], [address], [facility] 08/30/2023 19:29:40 Tdap 4 completed MD [address], [place], [address], [facility] 12/01/2023 18:15:36 Influenza, high-dose, trivalent, PF 4 completed HANNAH DIMAS CMA null, [facility] 05/18/2024 11:35:26 COVID-19, mRNA, LNP-S, PF, jeferson-sucrose, 30 mcg/0.3 mL 4 completed HANNAH DIMAS CMA null, [facility] 05/18/2024 11:35:26 Pneumococcal conjugate PCV20, polysaccharide RRM810 conjugate, adjuvant, PF 3 completed ANDRÉS DOYLE, [facility] 08/12/2023 15:42:12 influenza, unspecified formulation 3 completed ANDRÉS DOYLE, [facility] 08/26/2023 11:13:50 Past Encounters Encounter ID Performer Location Encounter Start Date Encounter Closed Date Diagnosis/Indication Diagnosis SNOMED-CT Code Diagnosis ICD10 Code [id number] HANNAH DIMAS CMA [address] [address] 05/18/2024 11:25:09 05/18/2024 11:36:19 Active or passive immunization 972417511 Z23 Health Concerns Section Related Observation LastModified by Organization Detai ls LastModified Time None Recorded Concern Status LastModified by Organization Details LastModified Time None Recorded Payers Encounter Date Sequence Insurance Name Policy Number Policy Suazo Covered Member ID Suazo Member ID Guarantor Name 05/18/2024 1 [facility] (MEDICARE REPLACEMENT/A DVANTAGE - PPO) [id number] Arturo Mehta [id number] Arturo Mehta
--- OUTSIDE RECORDS SUMMARY | 2024-08-04 20:36 | XMS_ITS | Referral Summary ---
Author Organization [facility] Address [address] [place] [address] Care Team Providers Care Marketing Support Coordinator Name Role Phone Jesu Guerra [facility] Primary Care Provider [phone] Social History Tobacco Use Types Packs/Day Years Used Date Smoking Tobacco: Never Assessed Sex and Gender Information Value Date Recorded Sex Assigned at Not on file Legal Sex Male 23:22 EDT Gender Identity Not on file Sexual Orientation Not on file Plan of Treatment Not on file Insurance [employer] MEDICARE Care Teams Marketing Support Coordinator Relationship Specialty Start Date End Date Jesu Guerra, DNP [facility] [place] [address] PCP - General Family Medicine - Primary Care 10/03/23
== END 2024-08-04 21:28 | disposition home or self-care (01) ==
PROVIDERS: Emergency Provider Emergency Medicine; PCP Family Medicine
DX: E11.65 Type 2 diabetes mellitus with hyperglycemia (principal); E11.40 Type 2 diabetes mellitus with diabetic neuropathy, unspecified; I25.2 Old myocardial infarction; I10 Essential (primary) hypertension; Z95.0 Presence of cardiac pacemaker; Z95.1 Presence of aortocoronary bypass graft; Z79.4 Long term (current) use of insulin; Z79.84 Long term (current) use of oral hypoglycemic drugs; Z79.82 Long term (current) use of aspirin
CPT/HCPCS: 36415; 80053; 82962; 93005; 99284; 85025; 93010

== ENCOUNTER 2024-08-09 10:49 | Outpatient (RCR) | payer MEDICARE, SELFPAY ==
--- NOTE | 2024-08-09 10:15 | RT.EKG_ITS ---
APPROVED REPORT Exam: Resting ECG Reason for Exam: CR Intake Appointment - Baseline EKG Patient Location: O HR:79 bpm ECG Measurements Heart Rate 79 AXIS NV 150 P [id number] QRSd 126 QRS -24 QT 433 T 149 QTc 497 Conclusion A-V dual-paced rhythm with some inhibition...atrial and/or vent inhibition No further analysis attempted due to paced rhythm
--- OUTSIDE RECORDS SUMMARY | 2024-08-09 10:52 | XMS_ITS | Encounter Summary ---
Author Organization [facility] [place] [address] Care Team Providers Care Administrative Sales Assistant Name Role Phone Mauro Berumen MD Primary Care Provider [phone] Encounter Details Date Type Department Care Team (Late st Contact Info) Description 07/20/2024 Notes Only Cardiology at [address] [place] [address] Esha Jones RN Social History Tobacco Use Types Packs/Day Years Used Date Smoking Tobacco: Every Day Cigarettes Smokeless Tobacco: Never [facility] Utilities Answer Date Recorded In the past [...] any time in the past 12 m [facility], were you homeless or living in a senior living (including now)? No 06/03/2024 DH IPV Inpatient [...] BGL was measured to be 40. Nurse Dot Etcher Apprentice Chelsi administered chewable glucose tablets while this [...] on filedocumented in this encounter Care Teams Administrative Sales Assistant Relationship Specialty Start Date End Date Mauro Berumen MD [address] [place] [address] PCP - General Family Medicine 06/02/24 documented as of this encounter
--- OUTSIDE RECORDS SUMMARY | 2024-08-09 10:52 | XMS_ITS | Clinical Summary ---
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, <= 40%) 06/05/2024 Coronary artery disease invo lving craig coronary artery of craig heart without angina pectoris 06/05/2024 Type 2 diabetes mellitus 06/05/2024 STEMI (ST elevation myocardial infarction) 06/02 Encounters Date Type Department Care Team Description 07/20/2024 3:20 PM EST Office Visit Cardiac Surgery at [place] [phone] Wendi Loja MD Post-operative state 07/20/2024 Notes Only Cardiology at [place] [phone] Esha Jones RN 07/20/2024 Travel 06/15/2024 Unscheduled Encounter Cardiology at [address] [phone] Ross Corbin PA Cardiac resynchronization therapy defibrillator (SAIL MAKER-D) in place [Z95.810] 06/14/2024 7:30 AM EST - 06/14/2024 2:08 PM EST Surgery [place] [phone] Wendi Loja MD @CABG, USING ARTERIAL GRAFT;SINGLE ARTERIAL GRAFT (WRVU 33.75) 06/14/2024 7:30 AM EST Anesthesia [place] [address] Hosea Ardon MD Budney, Colleen E, CRNA 06/14/2024 Unscheduled Encounter Cardiology at [address] [phone] Ross Corbin PA Cardiac resynchronization therapy defibrillator (SAIL MAKER-D) in place [Z95.810] 06/13/2024 9:00 AM EST - 06/13/2024 10:00 AM EST Surgery Systems Qa Analyst [place] [phone] Nuha Shen MD CARDIAC CATHETERIZATION 06/08/2024 Ophth Exam Ophthalmology at [place] [phone] Yumiko De La Torre, COT 06/03/2024 [place] [address] Unknown 06/03/2024 Travel 06/02/2024 11:09 PM EDT - 06/21/2024 1:07 PM EST Hospital Encounter Heart and Vascular Unit Level 4 Wing B at [place] [phone] Nuha Shen MD Costa, MD Lucio Moore, MD Gerardo Mackey, MD Fitz Duval, MD Freedom Lopez, Wendi Santiago MD ST elevation myocardial infarction (STEMI), unspecified artery; Coronary artery disease involving craig coronary artery of craig heart without angina pectoris; S/P CABG x 3 Discharge Disposition: Home with [facility] 06/02/2024 11:00 PM EDT - 06/03/2024 12:18 AM EDT [facility] [place] [address] Nuha Shen MD CARDIAC CATHETERIZATION 06/02/2024 External [place] [address] 06/02/2024 [place] [address] Sascha Silva MD from Last 3 Months Social History Tobacco Use Types Packs/Day Years Used Date Smoking Tobacco: Every Day Cigarettes Smokeless Tobacco: Never Tobacco Cessation:Ready to Q uit: No; Counseling Given: Yes [facility] Utilities Answer Date Recorded In the [...] any time in the past 12 m [facility], were you homeless or living in a assisted (including now)? No 06/03/2024 DH IPV Inpatient [...] history exists Medical Devices Implanted Type Area Assistant Front End Manager Device Identifier Shelf Expiration Date Model / Serial / Lot Mdt Amplia Mri Quad Crtd-06/16/2019 Implanted:06/16/2019 (Quantity not on file) Cardiac Resynchronizati on Therapy - Defibrillator Chest Medtronic Cardio - [id number] / [id number] / Description:[place] [facility] this SureScan System ([id number] and leads 4076, 6935M, and 4298) can [...] Clip 35mm Closure Exclusion System Preloaded Atriclip ([id number]) (Autoreq) - [id number] Implanted:Qty: 1 on 06/14/2024 by Wendi Loja MD at [facility] IMPLANTS N/A: Heart ATRICURE - ATRICURE 03/04/2027 [id number] / / [id number] Cable,Cut,Edg,Blnt,S s,3tpr ([id number]) - [id number] Implanted:Qty: 1 on 06/14/2024 by Wendi Loja MD at [facility] IMPLANTS Midline: Sternum [employer] - [id number] 09/10/2028 [id number] / / [id number] Janett 4076 Capsurefix Novus Lead-06/16/2019 Implanted:Qty: 1 on 06/16/2019 Lead Chest Medtronic Cardio - [id number] / [id number] / Description:Atrial Lead 4076 See Generator Tab for MRI Conditions Octaviano Morgannavya RT (R)(MR) 06/04/2024 Janett 6935m Lead-06/16/2019 Implanted:Qty: 1 on 06/16/2019 Lead Chest Medtronic Cardio - 4287 6935M / [id number] [id number] / Description:RV Lead See Generator Tab for MRI Conditions Octaviano Hawkins RT (R)(MR) 06/04/2024 Mdt 4298 Attain Performa Lead-06/16/2019 Implanted:Qty: 1 on 06/16/2019 Lead Chest Medtronic Cardio - [id number] / [id number] / Description:LV Lead See Generator Tab [...] 8:39 AM EST Unlisted Cardiac Surg Procedure ([id number]) 06/14/2024 7:34 AM EST 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) 06/14/2024 7:34 AM EST CAD Endoscopy W/Video-Asst Vein [place], Cabg ([id number]) 06/14/2024 7:34 AM EST CAD Cabg, Artery-Vein, Two ([id number]) 06/14/2024 7:34 AM EST CAD Cabg, Arterial, Single ([id number]) 06/14/2024 7:34 AM EST CAD TRANSESOPHAGEAL ECHOCARDIOGRAM IN THE OR Routine 06/14/2024 7:20 AM EST Coronary artery disease involving craig coronary artery of craig heart without angina pectoris POC, GLUCOSE Routine [...] POC, GLUCOSE Routine 06/02/2024 11:31 PM EDT [facility] RESULT Routine 06/02/2024 9:54 PM EDT from Last 3 Months Results * POC, GLUCOSE (07/20/2024 4:31 PM EST) Only the most recent of134 resultswithin the time period is included. [facility] Glucometer, POC 125 65 - 199 mg/dL 07/20/2024 4:31 PM EST [facility] Comment:Supplemental ranges: <140 mg/dL before meals <180 mg/dL all other times of the day. Blood CAPILLARY BLOOD / Unknown 07/20/2024 4:31 PM EST 07/20/2024 4:31 PM EST Wendi Loja MD POINT OF CARE TEST O RDERABLES [facility] [place] [place] [address] * Scan Doc: Telemetry Strips (06/21/2024 7:50 [...] - 199 mg/dL 06/21/2024 3:10 AM EST [facility] Comment:Glucose Concentratio n >=200 mg/dL plus symptoms is consistent with Diabetes Mellitus. Blood Urea Nitrogen 27(H) 10 - 20 mg/dL 06/21/2024 3:10 AM EST [facility] Creatinine 1.24 0.80 - 1.50 mg/dL 06/21/2024 3:10 AM EST [facility] Sodium 138 135 - 145 mMol/L 06/21/2024 3:10 AM EST [facility] Potassium 4.2 3.5 - 5.0 mMol/L 06/21/2024 3:10 AM EST [facility] Chloride 100 98 - 107 mMol/L 06/21/2024 3:10 AM EST [facility] Carbon Dioxide 27 22 - 31 mMol/L 06/21/2024 3:10 AM EST [facility] Anion Gap 11 5 - 15 mMol/L 06/21/2024 3:10 AM [facility] Calcium 8.7 8.5 - 10.5 mg/dL 06/21/2024 3:10 AM [facility] Est Glomerular Filtration Rate - Male 64 mL/min/1. 73 m?? 06/21/2024 3:10 AM EST [facility] Comment: This patient's estimated GFR [...] EST Keila Dayan CHOU CHEMISTRY ORDERABL ES [facility] [place] [address] * XR Chest PA & Lateral (Generic) (06/17/2024 1:46 PM EST) Only the most recent of2 resultswithin the time period is included. Kiddie Kist WORKSTATION ID [id number] RAD Anatomical Region Laterality Modality Chest N/A [...] who have questions please contact the health career discovery teacher that requested your imaging first. ? Narrative [...] patients who have questions please contactthe health career discovery teacher that requested your imaging first. Keila Hanley APRN IMG DX ORDERABLES * (ABNORMAL) Hemogram (06/17/2024 2:39 AM EST) Only the most recent of2 resultswithin the time period is included. White Blood Cell 13.53(H) 4.00 - 9.50 x10(3)/mc L 06/17/2024 2:53 AM [facility] Red Blood Cell 3.55(L) 4.58 - 5.54 x10(6)/mc L 06/17/2024 2:53 AM [facility] Hemoglobin 10.8(L) 13.7 - 16.5 g/dL 06/17/2024 2:53 AM [facility] Hematocrit 33.0(L) 40.5 - 48.5 % 06/17/2024 2:53 AM [facility] Mean Cell Volume 93.0 82.9 - 93.1 fL 06/17/2024 2:53 AM [facility] Mean Cell Hemoglobin 30.4 27.5 - 32.1 pg 06/17/2024 2:53 AM [facility] Mean Cell Hemoglobin Concentration 32.7 32.0 - 35.7 g/dL 06/17/2024 2:53 AM [facility] Platelet 101(L) 145 - 357 x10(3)/mc L 06/17/2024 2:53 AM [facility] Mean Platelet Volume 10.4 7.6 - 12.9 fL 06/17/2024 2:53 AM [facility] RDW Standard Deviation 48.4(H) 36.0 - 45.0 fL 06/17/2024 2:53 AM [facility] RDW coefficient of variation 14.1(H) 11.4 - 13.8 % 06/17/2024 2:53 AM [facility] NRBC% auto 0.0 % 06/17/2024 2:53 AM [facility] NRBC Absolute <0.01 <0.01 x10(3)/mc L 06/17/2024 2:53 AM [facility] Blood VENOUS BLOOD SPECIMEN / Unknown Venipuncture / Unknown 06/17/2024 2:39 AM EST 06/17/2024 2:43 AM EST Wendi Loja MD HEMATOLOGY ORDERABLE S Performing Organization Address City/[facility]/ZIP Co de Phone Number [facility] [place] [address] * Lactate, Whole Blood (06/17/2024 2:39 AM EST) Only the most recent of3 resultswithin the time period is included. Lactate, Whole Blood 1.3 0.5 - 2.2 mmol/L 06/17/2024 2:46 AM EST [facility] Blood VENOUS BLOOD SPECIMEN / Unknown Venipuncture / Unknown 06/17/2024 2:39 AM EST 06/17/2024 2:43 AM EST Wendi Loja MD CHEMISTRY ORDERABLES Performing Organization Address [facility] Co de Phone Number [facility] [place] [address] * (ABNORMAL) Cooximetry, POC (06/15/2024 9:31 AM EST) Only the most recent of5 resultswithin the time period is included. pO2, Coox 38 mmHg 06/15/2024 9:34 AM [facility] Hemoglobin, Coox 12.9(L) 13.7 - 16.5 g/dL 06/15/2024 9:34 AM [facility] Oxyhemoglobin, Coox 72.1 % 06/15/2024 9:34 AM [facility] Carboxyhemoglo bin, Coox 0.9 % 06/15/2024 9:34 AM [facility] Comment: Nonsmokers: 0.5-1.5% COHB ?? Smokers: Variable ??but usually less than 10% ?? Toxic: 20-30% COHB ?? Lethal: Greater than 60% COHB Methemoglobin, Coox 0.3 <=1.5 % 06/15/2024 9:34 AM EST [facility] Blood (Mixed Venous) 06/15/2024 9:31 AM EST 06/15/2024 9:34 AM EST Wendi Loja MD POINT OF CARE TEST O RDERABLES [facility] [place] [address] * (ABNORMAL) Blood Gas, Arterial POC (06/15/2024 9:19 AM EST) Only the most recent of12 resultswithin the time period is included. pH, Arterial 7.31(L) 7.35 - 7.45 06/15/2024 9:21 AM [facility] PCO2, Arterial 36 35 - 45 mmHg 06/15/2024 9:21 AM [facility] PO2, Arterial 94 85 - 104 mmHg 06/15/2024 9:21 AM [facility] Bicarbonate, Arterial 18.0(L) 20.0 - 26.0 mmol/L 06/15/2024 9:21 AM [facility] Base Excess, Arterial -8.2(L) -3.0 - 3.0 mmol/L 06/15/2024 9:21 AM [facility] Hemoglobin, Arterial 12.7(L) 13.7 - 16.5 g/dL 06/15/2024 9:21 AM [facility] Oxyhemoglobin, Arterial 96.0 94.0 - 97.0 % 06/15/2024 9:21 AM [facility] Carboxyhemoglobin , Arterial 0.5 % 06/15/2024 9:21 AM [facility] Comment: Nonsmokers: 0.5-1.5% COHB ?? Smokers: Variable ??but usually less than 10% ?? Toxic: 20-30% COHB ?? Lethal: Greater than 60% COHB Methemoglobin, Arterial 0.3 <=1.5 % 06/15/2024 9:21 AM [facility] Sodium, Arterial 136 135 - 145 mmol/L 06/15/2024 9:21 AM [facility] Potassium, Arterial 4.0 3.5 - 5.0 mmol/L 06/15/2024 9:21 AM EST [facility] Chloride, Arterial 106 98 - 107 mmol/L 06/15/2024 9:21 AM EST [facility] Lactate, Arterial 1.7 0.5 - 2.2 mmol/L 06/15/2024 9:21 AM EST [facility] Flow Rate 2.0 L/min 06/15/2024 9:21 AM EST [facility] IONIZED CALCIUM, ARTERIAL 1.14(L) 1.15 - 1.33 mmol/L 06/15/2024 9:21 AM EST [facility] Glucose, Arterial 193 65 - 199 mg/dL 06/15/2024 9:21 AM EST [facility] Comment:Glucose Concentratio n >=200 mg/dL plus symptoms is consistent with Diabetes Mellitus. Blood ARTERIAL BLOOD / Unknown 06/15/2024 9:19 AM EST 06/15/2024 9:20 AM EST Wendi Loja MD POINT OF CARE TEST O RDERABLES [facility] [place] [address] * XR Chest One View (06/15/2024 6:31 AM EST) Only the most recent of4 resultswithin the time period is included. WORKSTATION ID [id number] RAD Anatomical Region Laterality Modality Chest N/A [...] who have questions please contact the health career discovery teacher that requested your imaging first. ? Narrative [...] patients who have questions please contactthe health career discovery teacher that requested your imaging first. Wendi Loja MD IMG DX ORDERABLES * (ABNORMAL) Troponin - Single (06/15/2024 1:48 AM EST) [facility] Troponin-T, High Sensitivity 667(H) <=22 ng/L 06/15/2024 2:22 AM EST [facility] Comment: This patient's troponin T [...] can be found in the [facility] Test Catalog Troponin - [email or web address] Reference: Fourth Mathews Definition of Myocardial Infarction. Journal of the [place] [employer] 2018;72:9520-1693 Blood VENOUS BLOOD SPECIMEN / Unknown Venipuncture / Unknown 06/15/2024 1:48 AM EST 06/15/2024 1:52 AM EST Wendi Loja MD CHEMISTRY ORDERABLES [facility] [place] [address] * (ABNORMAL) CBC (with Diff) (06/15/2024 1:48 AM EST) Only the most recent of13 resultswithin the time period is included. [facility] White Blood Cell 11.71(H) 4.00 - 9.50 x10(3)/mc L 06/15/2024 2:13 AM EST [facility] Red Blood Cell 4.14(L) 4.58 - 5.54 x10(6)/mc L 06/15/2024 2:13 AM [facility] Hemoglobin 12.5(L) 13.7 - 16.5 g/dL 06/15/2024 2:13 AM [facility] Hematocrit 38.4(L) 40.5 - 48.5 % 06/15/2024 2:13 AM [facility] Mean Cell Volume 92.8 82.9 - 93.1 fL 06/15/2024 2:13 AM [facility] Mean Cell Hemoglobin 30.2 27.5 - 32.1 pg 06/15/2024 2:13 AM [facility] Mean Cell Hemoglobin Concentration 32.6 32.0 - 35.7 g/dL 06/15/2024 2:13 AM [facility] Platelet 101(L) 145 - 357 x10(3)/mc L 06/15/2024 2:13 AM [facility] Mean Platelet Volume 10.0 7.6 - 12.9 fL 06/15/2024 2:13 AM [facility] RDW Standard Deviation 48.8(H) 36.0 - 45.0 fL 06/15/2024 2:13 AM [facility] RDW coefficient of variation 14.2(H) 11.4 - 13.8 % 06/15/2024 2:13 AM [facility] NRBC% auto 0.0 % 06/15/2024 2:13 AM [facility] NRBC Absolute <0.01 <0.01 x10(3)/mc L 06/15/2024 2:13 AM [facility] Neutrophil % 79.7 % 06/15/2024 2:13 AM [facility] Neutrophil Absolute (ANC) - Automated 9.34(H) 1.70 - 6.10 x10(3)/mc L 06/15/2024 2:13 AM [facility] Lymph % 8.0 % 06/15/2024 2:13 AM [facility] Lymph Absolute 0.94 0.90 - 3.20 x10(3)/mc L 06/15/2024 2:13 AM EST [facility] Monocyte % 11.4 % 06/15/2024 2:13 AM [facility] Monocyte Absolute 1.33(H) 0.30 - 0.90 x10(3)/mc L 06/15/2024 2:13 AM EST [facility] Eos % 0.2 % 06/15/2024 2:13 AM EST [facility] Eos Absolute <0.04 0.00 - 0.40 x10(3)/mc L 06/15/2024 2:13 AM EST [facility] Basophil % 0.2 % 06/15/2024 2:13 AM [facility] Baso Absolute <0.04 0.00 - 0.10 x10(3)/mc L 06/15/2024 2:13 AM [facility] Immature Gran % 0.5 % 2:13 AM [facility] Immature Gran Absolute 0.06(H) 0.00 - 0.04 x10(3)/mc L 06/15/2024 2:13 AM [facility] Blood VENOUS BLOOD SPECIMEN / Unknown Venipuncture / Unknown 06/15/2024 1:48 AM EST 06/15/2024 1:52 AM EST Wendi Loja MD HEMATOLOGY ORDERABLE S [facility] [place] [address] * Potassium (06/14/2024 11:28 PM EST) Only the most recent of13 resultswithin the time period is included. Potassium 4.1 3.5 - 5.0 mMol/L 06/14/2024 11:54 PM EST [facility] Blood VENOUS BLOOD SPECIMEN / Unknown Venipuncture / Unknown 06/14/2024 11:28 PM EST 06/14/2024 11:34 PM EST Wendi Loja MD CHEMISTRY ORDERABLES [facility] [place] [address] * (ABNORMAL) Hemoglobin (06/14/2024 6:19 PM EST) Pathologist [facility] Hemoglobin 13.1(L) 13.7 - 16.5 g/dL 06/14/2024 7:08 PM EST [facility] Blood VENOUS BLOOD SPECIMEN / Unknown Venipuncture / Unknown 06/14/2024 6:19 PM EST 06/14/2024 6:28 PM EST Wendi Loja MD HEMATOLOGY ORDERABLE S Performing Organization Address [facility]/ZIP Co de Phone Number [facility] [place] [address] * EKG 12 Lead (06/14/2024 2:46 PM EST) Only the most recent of2 resultswithin the time period is included. [facility] Ventricular rate 80 BPM MUSE SYSTEM Atrial Rate 80 BPM MUSE SYSTEM P-R Interval 120 ms MUSE SYSTEM QRS Duration 108 ms MUSE SYSTEM Q-T Interval 454 ms MUSE SYSTEM QTC Calculated (Bezet) 523 ms MUSE SYSTEM Calculated P [place] 70 degrees MUSE SYSTEM Calculated R [place] 56 degrees MUSE SYSTEM Calculated T [place] 50 degrees MUSE SYSTEM INTERPRETATION AV dual-paced rhythm Abnormal ECG When compared with ECG of 03-JUN-2024 01:45, Vent. rate has increased BY ??17 BPM Confirmed by MD Marisol, Shaheen ([id number]) on 06/15/2024 1:57:23 PM MUSE SYSTEM 06/14/2024 2:46 PM EST 06/15/2024 1:57 PM EST Wendi Loja MD ECG ORDERABLES Performing Organization Address City/[facility]/ZIP Co de Phone Number MUSE SYSTEM * Prepare RBC (06/14/2024 2:27 PM EST) Pathologist [facility] Status Information Returned [facility] Product Identification RBC [facility] Unit Number [id number] [facility] Product Code F4905R13 [facility] Unit Blood Type OPOS [facility] Specimen Expiration Date [facility] Volulme 350 [facility] Issue Date / Time [facility] Status Information Returned [facility] Product Identification RBC [facility] Unit Number [id number] [facility] Product Code [id number] [facility] Unit Blood Type OPOS [facility] Specimen Expiration Date [facility] Volulme 350 [facility] Issue Date / Time [facility] Blood 06/14/2024 6:2 5 AM EST Haja Byrnes MD BLOOD BANK PRODUCT O RDERABLES Performing Organization Address City/[facility]/ZIP Co de Phone Number [facility] [place] [address] * (ABNORMAL) Platelet count (06/14/2024 12:30 PM EST) Only the most recent of2 resultswithin the time period is included. Pathologist [facility] Platelet 73(L) 145 - 357 x10(3)/mcL 06/14/2024 12:54 PM EST [facility] Blood ARTERIAL BLOOD / Unknown 06/14/2024 12:30 PM EST Comment:Pre-op diagnosis: CAD Wendi Loja MD HEMATOLOGY ORDERABLE S Performing Organization Address City/[facility]/ZIP Co de Phone Number [facility] [place] [address] * (ABNORMAL) Hemoglobin and Hematocrit, blood (06/14/2024 12:30 PM EST) Only the most recent of2 resultswithin the time period is included. Hemoglobin 10.9(L) 13.7 - 16.5 g/dL 06/14/2024 12:54 PM EST [facility] Hematocrit 33.5(L) 40.5 - 48.5 % 06/14/2024 12:54 PM EST [facility] Comment:This result has been called to Danielle López by Satya Page on 06/14/2024 12:53:56, and has been read back. Blood ARTERIAL BLOOD / Unknown 06/14/2024 12:30 PM EST 06/14/2024 12:42 PM EST Comment:Pre-op diagnosis: CAD Wendi Loja MD HEMATOLOGY ORDERABLE S Performing Organization Address [facility] Co de Phone Number [facility] [place] [address] * APTT (06/14/2024 12:30 PM EST) Only the most recent of2 resultswithin the time period is included. Partial Thromboplastin Time 31 25 - 37 sec 06/14/2024 12:57 PM EST [facility] Comment: The PTT is NOT appropriate for heparin monitoring. Use the Anti-Xa level for heparin monitoring (HEP UFH) or LMWH monitoring (HEP LMW). A PTT less than 37 seconds generally indicates adequate hemostasis. Blood ARTERIAL BLOOD / Unknown 06/14/2024 12:30 PM EST 06/14/2024 12:42 PM EST Comment:Pre-op diagnosis: CAD Wendi Loja MD HEMATOLOGY ORDERABLE S Performing Organization Address City/[facility]/ZIP Co de Phone Number [facility] [place] [address] * (ABNORMAL) Prothrombin Time (06/14/2024 12:30 PM EST) Only the most recent of2 resultswithin the time period is included. Prothrombin Time 16.8(H) 9.4 - 12.5 sec 06/14/2024 12:57 PM EST [facility] International Normalization Ratio 1.5 <=4.9 06/14/2024 12:57 PM EST [facility] Comment: An INR < 2.0 [...] MD HEMATOLOGY ORDERABLE S Performing Organization Address [facility]/ZIP Co de Phone Number [facility] [place] [address] * Fibrinogen (06/14/2024 12:30 PM EST) Fibrinogen 211 200 - 393 mg/dL 06/14/2024 12:57 PM EST [facility] Comment: A fibrinogen level >100 mg/dL is adequate for hemostasis in most patients without underlying bleeding disorders. Blood ARTERIAL BLOOD / Unknown 06/14/2024 12:30 PM EST 06/14/2024 12:42 PM EST Comment:Pre-op diagnosis: CAD Wendi Loja MD HEMATOLOGY ORDERABLE S Performing Organization Address [facility] Co de Phone Number [facility] [place] [address] * (ABNORMAL) Scan, Peripheral Blood (06/14/2024 11:23 AM EST) RBC Morphology Abnormal 06/14/2024 11:59 AM EST [facility] Platelet Estimate Decreased(A) Normal 06/14/2024 11:59 AM EST [facility] Aretha cells 1-5 /HPF 06/14/2024 11:59 AM EST [facility] Blood ARTERIAL BLOOD / Unknown 06/14/2024 11:23 AM EST 06/14/2024 11:27 AM EST Wendi Loja MD HEMATOLOGY ORDERABLE S [facility] [place] [address] * Surgical Pathology (06/14/2024 9:53 AM EST) Case Report Surgical Pathology Report ? Case: [id number] ? Authorizing Provider: ??Wendi Loja MD ? Collected: ? 06/14/2024 0953 ? Ordering Location: ? Main Operating Room Kristen ?? Received: ?06/14/2024 1413 ? [facility] ? Hospital ? Pathologist: ? Sandra Salas MD ? Specimens: ?? A) - Soft Tissue Mass, mediastinal mass ? B) - Heart, Atrial Appendage, Left ? 06/18/2024 10:18 AM [facility] Final Diagnosis A. Soft Tissue Mass, Mediastinal Mass, Excision: - Atrophic thymic tissue B. Heart, Atrial Appendage, Left, Excision: - Mild myocyte hypertrophy 06/18/2024 10:18 AM [facility] Clinical Information A. Soft Tissue Mass, mediastinal mass Soft tissue mass Mediastinal mass B. Heart, Atrial Appendage, Left, *Other - as specified in Clinical Information MARIALUISA 06/18/2024 10:18 AM [facility] Gross Description A. Soft Tissue Mass, mediastinal mass. A - Labeled/Fixative : Mediastinal mass, fresh. Quantity/Size: Single, 7.2 x 5.3 x 1.2 cm. Tissue Description: Unoriented, intact portion of soft, rodriguez-yellow, lobulated tissue. The cut surface is homogenously pale-rodriguez, yellow and lobulated. No lesions or nodules are identified. Inking: External surface inked black Sections/Process ing: Director Of Sustainable Design sections in 4 cassettes labeled A1-A4. cmk B. Heart, Atrial Appendage, Left, . B - Labeled/Fixative : Heart, atrial appendage, left, fresh. Quantity/Size: Single, 3.3 x 1.5 x 0.8 cm. Tissue Description: Portion of heart tissue consisting of rodriguez-white, semitranslucent, smooth endocardium with rodriguez-brown muscular myocardium and thin translucent epicardium with adherent adipose tissue. No areas of discoloration identified. Sections/Process ing: Director Of Sustainable Design sections in 1 cassette labeled B1. cmk 06/18/2024 10:18 AM [facility] Result Note Routine 06/18/2024 10:18 AM EST [facility] Tissue SOFT TISSUE MASS / Unknown 06/14/2024 9:53 AM EST 06/14/2024 2:13 PM EST Comment:Mediastinal mass Tissue specimen (specimen) LEFT ATRIAL APPENDAGE ABSENT / Unknown 06/14/2024 10:54 AM EST 06/14/2024 2:13 PM EST Comment:MARIALUISA Wendi Loja MD PATHOLOGY/CYTOLOGY O RDERABLES [facility] [place] [address] * Transesophageal Echo/OR (06/14/2024 7:20 AM EST) Anatomical Region Laterality Modality Cardiac Other 06/14/2024 7:20 AM EST Narrative 06/14/2024 4:36 PM EST Version: 2 Study ID: [id number] [address] [place] [address] ?OR Transesophageal Echo Report Name: GEORGE MEHTA [...] of this mass after consultation with other public service representative experts and the decision was made by [...] MD - 06/14/2024 Version: 2 Study ID: [id number] [address] [place] [address] ORTransesophageal Echo Report Name: GEORGE MEHTA Study Date: 06/14/2024,7: 20 AM Patient Location:^CT16^A : 1955 Age: 69 Years Gender: Male [...] of this mass after consultation with other public service representative experts and thedecision was made by surgeon [...] Heparin 1.02(HHH) IU/mL 06/14/2024 12:46 AM EST [facility] Comment: Heparin (anti-Xa) levels should [...] EST Shahnaz Mares MD HEMATOLOGY ORDERABLE S [facility] [place] [address] * Magnesium (06/14/2024 12:12 AM EST) Only the most recent of12 resultswithin the time period is included. Magnesium 0.74 0.69 - 1.07 mMol/L 06/14/2024 12:57 AM EST [facility] Blood VENOUS BLOOD SPECIMEN / Unknown Venipuncture / Unknown 06/14/2024 12:12 AM EST 06/14/2024 12:29 AM EST Shahnaz Mares MD CHEMISTRY ORDERABLES [facility] [place] [address] * Scan Doc: Implantable Devices (06/14/2024 12:00 AM EST) Narrative 06/14/2024 12:00 AM EST Ordered by an unspecified provider. Scanning Provider MEDIA MGR SCAN EXT O RDR/RSLT * ABORH RECHECK (06/13/2024 4:11 PM EST) ABORH Recheck O POSITIVE 06/13/2024 4:50 PM EST [facility] Blood VENOUS BLOOD SPECIMEN / Unknown Venipuncture / Unknown 06/13/2024 4:11 PM EST 06/13/2024 4:19 PM EST Haja Byrnes MD BLOOD BANK LAB ORDER EUSEBIA Performing Organization Address City/[facility]/ZIP Co de Phone Number [facility] [place] [address] * Type and screen ([facility]RAFITA) (06/13/2024 11:53 AM EST) ABORH Type O POSITIVE 06/13/2024 1:16 PM EST [facility] PATIENT HISTORY Not Found 06/13/2024 1:16 PM EST [facility] Expires at [id number] on: 06/16/2024 06/13/2024 1:16 PM EST [facility] ANTIBODY SCREEN AUTOMATED Negative 06/13/2024 1:16 PM EST [facility] T&S only valid at [facility] 06/13/2024 1:16 PM EST [facility] Blood VENOUS BLOOD SPECIMEN / Unknown Venipuncture / Unknown 06/13/2024 11:53 AM EST 06/13/2024 11:56 AM EST Narrative [facility] - 06/13/2024 1:16 PM EST This Type and Screen result is only valid at the [facility] Haja Byrnes MD BLOOD BANK LAB ORDER EUSEBIA [facility] [place] [address] * CARDIAC CATHETERIZATION (06/13/2024 9:02 AM EST) Only the most recent of2 resultswithin the time period is included. Anatomical Region Laterality Modality Other Narrative 06/15/2024 9:07 AM EST ?[facility] ? Cardiac Catheterization/Intervention Report ? Patient Name: Tyson, George L. ? Procedure Date: 06/13/2024 ? A #: [id number] ? Primary Physician: Nuha Shen I ? Case #: [id number] ? File Name: [id number] ? Catheterization Order Number: [id number] ? [facility] ? Final Report [place], [place] ? Patient Name: ? George L. Tyson ? ID#: ?[id number] ? : ?1955 ? Procedure Date: ? June 13, 2024 ?Case #: ? [id number] ? Room: ? 6 ? Case Physician: [...] ?was designated as ASA Class IV. The [facility] clinical frailty scale is 5: ?Mildly [...] procedure was Urgent. The indication for ?the ammunition assembly laborer visit is ACS greater than 24 [...] angiography, vascular ?ultrasound and IABP insertion in ammunition assembly laborer. ? Nuha Shen M.D. ? Electronically Signed by: Nuha Shen M.D. ? Report Finalized: 06/15/2024 ??08:59 ? Procedure Note Nuha Shen MD - 06/15/2024 [facility] Cardiac Catheterization/Intervention Report Patient Name: George Mehta Procedure Date: 06/13/2024 A #: [id number] Primary Physician: Nuha Shen I Case #: [id number] File Name: [id number] Catheterization Order Number: [id number] [facility] FinalReport [place], [place] Patient Name: George RaadViry Mehta ID#:[id number] :1955 Procedure Date: June 13, 2024 Case [...] was designated as ASA Class IV. The [facility] clinical frailty scale is5: Mildly Frail. [...] diagnostic procedure was Urgent. The indicationfor the ammunition assembly laborer visit is ACS greater than 24 [...] site angiography,vascular ultrasound and IABP insertion in ammunition assembly laborer. Nuha Shen M.D. Electronically Signed by: Nuha Shen M.D. Report Finalized: 06/15/2024 08:59 Nuha Rojo MD CARDIAC CATH ORDERA BLES * (ABNORMAL) Blood Gas, Venous (06/10/2024 5:42 PM EST) pH, Venous 7.34 7.32 - 7.42 06/10/2024 5:50 PM [facility] PCO2, Venous 52 38 - 58 mmHg 06/10/2024 5:50 PM [facility] PO2, Venous 24 16 - 65 mmHg 06/10/2024 5:50 PM [facility] Bicarbonate, Venous 27.4 22 - 31 mmol/L 06/10/2024 5:50 PM [facility] Base Excess, Venous 1.7(L) 1.9 - 4.5 mmol/L 06/10/2024 5:50 PM [facility] Hemoglobin, Venous 16.8(H) 13.7 - 16.5 g/dL 06/10/2024 5:50 PM [facility] Oxyhemoglobin, Venous 39.0 % 06/10/2024 5:50 PM [facility] Carboxyhemoglobin , Venous 0.3 % 06/10/2024 5:50 PM [facility] Comment: Nonsmokers: 0.5-1.5% COHB ?? Smokers: Variable ??but usually less than 10% ?? Toxic: 20-30% COHB ?? Lethal: Greater than 60% COHB Methemoglobin, Venous 0.5 <=1.5 % 06/10/2024 5:50 PM [facility] Sodium, Venous 137 135 - 145 mmol/L 06/10/2024 5:50 PM [facility] Chloride, Venous 96(L) 98 - 107 mmol/L 06/10/2024 5:50 PM [facility] Potassium, Venous 4.6 3.5 - 5.0 mmol/L 06/10/2024 5:50 PM [facility] Ionized Calcium, Venous 1.23 1.15 - 1.33 mmol/L 06/10/2024 5:50 PM [facility] Glucose, Venous 114 65 - 199 mg/dL 06/10/2024 5:50 PM [facility] Comment:Glucose Concentratio n >=200 mg/dL plus symptoms is consistent with Diabetes Mellitus. Lactate, Venous 1.1 0.5 - 2.2 mmol/L 06/10/2024 5:50 PM EST [facility] Blood Gas Source Venous 06/10/20 5:50 PM EST [facility] Blood VENOUS BLOOD SPECIMEN / Unknown Blood Gas Venous / Unknown 06/10/2024 5:42 PM EST 06/10/2024 5:47 PM EST Melida Valdes MD CHEMISTRY ORDERABLES [facility] [address] [place] [address] * MRI Cardiac Morphology Function wwo Contrast (06/07/2024 1:10 PM EST) Kiddie Kist WORKSTATION ID [id number] DH RAD Anatomical Region Laterality Modality Magnetic [...] - Mildly dilated left ventricle size with oxpvtbfz-un-jyiqpadq decreased LV systolic function. ??LV ejection fraction [...] who have questions please contact the health career discovery teacher that requested your imaging first. ? Narrative 06/07/2024 2:41 PM EST EXAMINATION: MRI [...] VENTRICLE: Mildly dilated left ventricle size with lnnirqmt-gg-tjptuego decreased LV systolic function. ??LV ejection fraction [...] VENTRICLE: Mildly dilated left ventricle size with fqfwzmly-so-zaijseep decreasedLV systolic function. LV ejection fraction is [...] - Mildly dilated left ventricle size with zqmgeatz-kl-mdymkvil decreasedLV systolic function. LV ejection fraction is [...] patients who have questions please contactthe health career discovery teacher that requested your imaging first. Delroy Fofana MD IM MRI ORDERABLES * (ABNORMAL) Hemoglobin A1c (06/06/2024 3:33 AM EST) Hemoglobin A1c 7.1(H) 4.3 - 5.6 % 06/06/2024 1:01 PM EST [facility] Comment: Per ADA guidelines, without [...] red blood cell turnover may not be inbound call center representative of glycemic control. Reference Interval: 4.3 - 5.6% 5.7 - 6.4%: Consistent with prediabetes >=6.5%: Consistent with diagnosis of diabetes mellitus Estimated Average Glucose 157 mg/dL 06/06/2024 1:01 PM EST [facility] Blood VENOUS BLOOD SPECIMEN / Unknown Venipuncture / Unknown 06/06/2024 3:33 AM EST 06/06/2024 3:48 AM EST Alejandra Baumann APRN CHEMISTRY ORDERAB LES [facility] [place] [place] [address] * Scan Doc: Implantable Devices (06/04/2024 12:00 AM EDT) Narrative 06/04/2024 12:00 AM EDT Ordered by an unspecified provider. Scanning Provider MEDIA MGR SCAN EXT O RDR/RSLT * CT Chest wo Contrast (Generic) (06/03/2024 4:33 PM EDT) WORKSTATION ID [id number] DH RAD Anatomical Region Laterality Modality Chest Computed Tomogra phy Impressions 06/03/2024 4:47 PM EDT Cardiomegaly. Biventricular ICD leads in place. Thank you for letting us participate in the care of this patient. ??If you are a health care provider and have any questions regarding this report, please contact the number below. ??For patients who have questions please contact the health career discovery teacher that requested your imaging first. ? Narrative [...] patients who have questions please contactthe health career discovery teacher that requested your imaging first. Wendi Loja MD IMG CT ORDERABLES * Carotid Duplex, Bilateral (06/03/2024 2:19 PM EDT) VB Text Report Department: Vascular Surgery Lab Patient: [id number] (GEORGE MEHTA) CPT: 59676 Referring Physician: WENDI LOJA ?? Phone: Indications: [...] 266(H) <=22 ng/L 06/03/2024 10:50 AM EDT [facility] Comment: This patient's troponin T [...] can be found in the [facility] Test Catalog Troponin - [email or web address].org/catalogs/565/files/59558 Reference: Fourth Mathews Definition of Myocardial Infarction. Journal of the [place] [employer] 2018;72:1080-3291 Troponin-T, HS 3 hr delta 06/03/2024 10:50 AM EDT [facility] Comment:Delta troponin value not calculated, sample collected outside of delta calculation time limit. Blood VENOUS BLOOD SPECIMEN / Unknown IP Care Team Draw / Unknown 06/03/2024 10:06 AM EDT 06/03/2024 10:15 AM EDT Delroy Foafna MD CHEMISTRY ORDERABLE S [facility] [place] [address] * ECHO COMPLETE W CONTRAST (06/03/2024 8:46 AM EDT) Anatomical Region Laterality Modality Cardiac Other 06/03/2024 6:52 AM EDT Narrative 06/03/2024 10:32 AM EDT [address] [place], [place] [id number] ? Echocardiogram Report Name: GEORGE MEHTA ?Study Date: 06/03/2024 06:52 AM : 1955 ? Height: 168 cm ? Account: [id number] Age: 69 yrs ? Weight: 102 kg [...] fellow performed study of today's date). Procedure Complete-81104. Image enhancement Optison was used for left [...] Note Jonnie Jordan MD - 06/03/2024 [address] [place] [address] Echocardiogram Report Name: GEORGE MEHTA Study Date: 406:52 AM : 1955 Height: 168 cm Account: [id number] Age: 69 yrs Weight: 102 kg Gender: [...] a fellow performed study of's date). Procedure Complete-59074. Image enhancement Optison was used for left [...] 289(H) <=22 ng/L 06/03/2024 9:26 AM EDT [facility] Comment: This patient's troponin T [...] can be found in the [facility] Test Catalog Troponin - https://[email or web address].org/catalogs/565/files/77834 Reference: Fourth Mathews Definition of Myocardial Infarction. Journal of the [place] [employer] 2018;72:7453-5815 Troponin-T, HS 1 hr delta 5 ng/L 06/03/2024 9:26 AM EDT [facility] Comment:The 1 hour Troponin T delta value is the absolute difference between the Troponin T concentrations of the initial and subsequent sample collected between 45 - 120 minutes following the initial collection. Blood VENOUS BLOOD SPECIMEN / Unknown IP Care Team Draw / Unknown 06/03/2024 8:27 AM EDT 06/03/2024 8:37 AM EDT Delroy Fofana MD CHEMISTRY ORDERABLE S [facility] [place] [address] * (ABNORMAL) Troponin-T, High Sensitivity (06/03/2024 7:39 AM EDT) Only the most recent of2 resultswithin the time period is included. Troponin-T, High Sensitivity Initial 284(H) <=22 ng/L 06/03/2024 8:29 AM EDT [facility] Comment: This patient's troponin T [...] can be found in the [facility] Test Catalog Troponin - [email or web address].[email or web address]/catalogs/565/files/58706 Reference: Fourth Mathews Definition of Myocardial Infarction. Journal of the [place] College [employer]iology 2018;72:7941-5630 Blood VENOUS BLOOD SPECIMEN / Unknown IP Care Team Draw / Unknown 06/03/2024 7:39 AM EDT 06/03/2024 7:48 AM EDT Delroy oFfana MD CHEMISTRY ORDERABLE S [facility] [place] [address] * Echocardiogram Transthoracic (06/03/2024 2:23 AM EDT) Anatomical Region Laterality Modality Cardiac Other 06/03/2024 2:23 AM EDT Narrative 06/03/2024 10:32 AM EDT [address] [place] [address] ? Echocardiogram Report Name: GEORGE MEHTA Raad ?Study Date: 06/03/2024 02:23 AM : 1955 Age: 69 yrs Gender: Male Performed By: Sascha Silva MD Reason For Study: STEMI Interpreting Fellow: Sascha Silva. Interpretation Summary Limited echo performed by fellow financial foundations associate to assess LV function. Left ventricle is mild to moderately dilated. Left ventricular ejection fraction is estimated visually at 25%. There is global dyskinesia with mid-basilar posterior-posterolateral akinesis. Right ventricle is not well seen. RV systolic function is probably normal. There is no prior echo for comparison. Procedure Limited - 11484. Suboptimal quality. Ventricular paced. Left Ventricle Left [...] Note Jonnie Jordan MD - 06/03/2024 [address] [place] [id number] Echocardiogram Report Name: GEORGE MEHTA Study Date: 06/03/2024 02:23AM : 1955 Age: 69 yrs Gender: Male Performed By: Sascha Silva MD Reason For Study: STEMI Interpreting Fellow: Sascha Silva. Interpretation Summary Limited echo performed by fellow financial foundations associate to assess LV function. Left ventricle is mild to moderately dilated. Left ventricular ejectionfraction is estimated visually at 25%. There is global dyskinesia withmid-basilar posterior-posterolateral akinesis. Right ventricle is not well seen. RV systolic function is probablynormal. There is no prior echo for comparison. Procedure Limited - 55838. Suboptimal quality. Ventricular paced. Left Ventricle Left [...] - 4.5 mg/dL 06/03/2024 3:02 AM EDT [facility] Blood VENOUS BLOOD SPECIMEN / Unknown IP Care Team Draw / Unknown 06/03/2024 2:13 AM EDT 06/03/2024 2:32 AM EDT Shahnaz Mares MD CHEMISTRY ORDERABLES [facility] [place] [address] * (ABNORMAL) pro-Brain Natriuretic Peptide (06/03/2024 2:13 AM EDT) NT-proBNP 1,628(H) <=124 pg/mL 06/03/2024 4:15 AM EDT [facility] Blood VENOUS BLOOD SPECIMEN / Unknown IP Care Team Draw / Unknown 06/03/2024 2:13 AM EDT 06/03/2024 2:32 AM EDT Shahnaz Mares MD CHEMISTRY ORDERABLES [facility] [place] [address] * Hepatic Function Panel (06/03/2024 2:13 AM EDT) Albumin 3.8 3.2 - 5.2 g/dL 06/03/2024 3:02 AM EDT [facility] Aspartate Aminotransferase 20 <=39 unit/L 06/03/2024 3:02 AM EDT [facility] Alanine Aminotransferase 12 0 - 55 unit/L 06/03/2024 3:02 AM EDT [facility] Alkaline Phosphatase 76 40 - 130 unit/L 06/03/2024 3:02 AM EDT [facility] Bilirubin, Total 0.4 <=1.3 mg/dL 06/03/2024 3:02 AM EDT [facility] Bilirubin, Direct <0.2 0.0 - 0.3 mg/dL 06/03/2024 3:02 AM EDT [facility] Protein, Total 7.0 6.1 - 8.0 g/dL 06/03/2024 3:02 AM EDT [facility] Blood VENOUS BLOOD SPECIMEN / Unknown IP Care Team Draw / Unknown 06/03/2024 2:13 AM EDT 06/03/2024 2:32 AM EDT Shahnaz Mares MD CHEMISTRY ORDERABLES [facility] [place] [address] * Lipid Panel (Reflex Direct LDL) (06/03/2024 2:13 AM EDT) Pathologist [facility] Cholesterol, Total 76 mg/dL 06/03/2024 3:02 AM EDT [facility] Comment: Desirable: < 200 mg/dL Borderline High: 200 - 239 mg/dL High: > or = 240 mg/dL Triglyceride 75 mg/dL 06/03/2024 3:02 AM EDT [facility] Comment: Normal: <150 mg/dL Borderline High: 150-199 mg/dL High: 200-499 mg/dL Very High: > or =500 mg/dL HDL Cholesterol 39 mg/dL 3:02 AM EDT [facility] Comment:Males: High Risk: <4 0 mg/dL LDL Cholesterol 21 mg/dL 3:02 AM EDT [facility] Comment: Desirable: <100 mg/dL Above Desirable: 100-129 mg/dL Borderline High: 130-159 mg/dL High: 160-189 mg/dL Very High: > or =190 mg/dL Note: LDL calculation updated to the NIH LDL formula as of 03/07/2024 Non-HDL Cholesterol 37 mg/dL 06/03/2024 3:02 AM EDT [facility] Comment: Desirable: <130 mg/dL Above Desirable: 130-159 mg/dL Borderline High: 160-189 mg/dL High: 190-219 mg/dL Very High: > or = 220 mg/dL Blood VENOUS BLOOD SPECIMEN / Unknown IP Care Team Draw / Unknown 06/03/2024 2:13 AM EDT 06/03/2024 2:32 AM EDT [facility] - 06/03/2024 3:02 AM EDT [...] artery disease) Shahnaz Mares MD [place] [address] * External Cardiology Result (06/02/2024 9:54 PM [...] wishes to be Full Code Care Teams Trading Manager Relationship Specialty Start Date End Date Mauro Berumen MD [address] [place] [id number] PCP - General Family Medicine 06/02/24
--- OUTSIDE RECORDS SUMMARY | 2024-08-09 10:52 | XMS_ITS | Encounter Summary ---
Author Organization [facility] Address [facility] [place] [address] Care Team Providers Care Lamp Shade Joiner Name Role Phone Mauro Berumen MD Primary Care Provider [phone] Encounter Details Date Type Department Care Team (Latest Contact Info) Description 07/20/2024 Travel Social History Tobacco Use Types Packs/Day Years Used Date Smoking Tobacco: Every Day Cigarettes Smokeless Tobacco: Never [facility] Utilities Answer Date Recorded In the [...] any time in the past 12 m [facility], were you homeless or living in a [facility] (including now)? No 06/03/2024 IPV Inpatient Questions [...] on filedocumented in this encounter Care Teams Lamp Shade Joiner Relationship Specialty Start Date End Date Mauro Berumen MD [address] [place] [id number] PCP - General Family Medicine 06/02/24 documented as of this encounter
--- OUTSIDE RECORDS SUMMARY | 2024-08-09 10:52 | XMS_ITS | Encounter Summary ---
Author Organization [facility] Address [facility] [place] [address] Care Team Providers Care Alodize Machine Helper Name Role Phone Mauro Berumen MD Primary Care Provider [phone] Encounter Details Date Type Department Care Team (Late st Contact Info) Description 07/20/2024 3:20 PM EST Office Visit Cardiac Surgery at [facility] [place] [address] Bobby Loja MD [facility] [place] [address] Post-operative state Social History Tobacco Use Types Packs/Day Years Used Date Smoking Tobacco: Every Day Cigarettes Smokeless Tobacco: Never [facility] Utilities Answer Date Recorded In the [...] any time in the past [address] [facility], were you homeless or living in a long-term (including now)? No 06/03/2024 DH IPV Inpatient [...] s/p CABG x3, mediastinal mass excision, and MARIALUSIA exploration/clipping on 06/14/24. Patient has done okay since surgery - his main complaint is generalized fatigue. He is taking frequent naps throughout the day despite sleeping through the night. He denies shortness of breath, chest pain, lower extremity swelling, drainage from his incisions, and palpitations. There have been no interval ED visits or hospitalizations. He has not yet seen his PCP or bag filler machine operator since surgery. His appetite has been normal [...] cardiac surgery perspective - Follow up with Jammer Operator (Kristen Cardenas) and PCP (Mauro Berumen) as [...] * POC, GLUCOSE (07/20/2024 4:31 PM EST) [facility] Signature Glucometer, POC 125 65 - 199 mg/dL 07/20/2024 4:31 PM EST [facility] Comment:Supplemental ranges: <140 mg/dL before meals <180 mg/dL all other times of the day. Blood CAPILLARY BLOOD / Unknown 07/20/2024 4:31 PM EST 07/20/2024 4:31 PM EST Bobby Loja MD POINT OF CARE [place] [address] documented in this encounter Visit Diagnoses Diagnosis Post-operative state Other postprocedural status documented in this encounter Care Teams Alodize Machine Helper Relationship Specialty Start Date End Date Mauro Berumen MD [address] [place] [address] PCP - General Family Medicine 06/02/24 documented as of this encounter
--- OUTSIDE RECORDS SUMMARY | 2024-08-09 10:54 | XMS_ITS | Encounter Summary ---
Author Organization [facility] Address [facility] [place] [address] Care Team Providers Care Pathology Teacher Name Role Phone Mauro Berumen MD Primary Care Provider [phone] Reason for Referral * Consultation (Routine) - Authorized Specialty Diagnoses / Procedures Referred By Contac t Referred To Contact Cardiology Diagnoses S/P CABG x 3 Bobby Loja MD [facility] [place] [address] Cardiac Rehab, [address] [place] [address] Referral ID Status Reason Start Date Expiration Date Visits Requested Visits Authorized [id number] Authorized Consult, Test & Treat 06/21/2024 12/18/2024 36 36 * Home Health Care (Routine) - Authorized Specialty Diagnoses / Procedures Referred By Contac t Referred To Contact Diagnoses S/P CABG x 3 Bobby Loja MD [facility] [place] [address] Referral ID Status Reason Start Date Expiration Date Visits Requested Visits Authorized [id number] Authorized Consult, Test & Treat 06/21/2024 12/18/2024 999 999 Reason for Visit * Auth/Cert Specialty Diagnoses / Procedures Referred By Contac t Referred To Contact Diagnoses STEMI (ST elevation myocardial infarction) STEMI Procedures CARDIAC CATHETERIZATION EMERGENCY Delroy Monterroso MD [facility] [place] [address] [facility] Referral ID Status Reason Start Date Expiration Date Visits Re quested Visits Authorized [id number] 1 1 Encounter Details Date Type Department Care Team (Late st Contact Info) Description 06/02/2024 11:09 PM EDT - 06/21/2024 1:07 PM EST Hospital Encounter Heart and Vascular Unit Level 4 [place] [address] Nuha Shen MD [facility] [place] [address] Delroy Fofana MD [facility] [place] [address] Melida Valdes MD [facility] [place] [address] Ethel Carrillo MD [facility] [place] [address] Haja Byrnes MD [facility] [place] [address] Bobby Loja MD [facility] [place] [address] ST elevation myocardial infarction (STEMI), unspecified artery; Coronary artery disease involving [place] coronary artery of [place] heart without angina pectoris; S/P CABG x 3 Discharge Disposition: Home with VNA Social History Tobacco Use Types Packs/Day Years Used Date Smoking Tobacco: Every Day Cigarettes Smokeless Tobacco: Never Tobacco Cessation:Ready to Q uit: No; Counseling Given: Yes C Utilities Answer Date Recorded In the past 12 months has [employer], [employer], oil, or water [employer] threatened to shut off services in your [...] were you homeless or living in a custodial (including now)? No 06/03/2024 DH IPV Inpatient [...] this encounter Discharge Summaries * Keila Hanley, VEHICLE CARE SPECIALIST - 06/21/2024 8:31 AM EST Inpatient - Discharge Summary Patient Name: George Mehta Patient Age: 69 y.o. Birthdate: 1955 Language: Liberian Race: Choose not to Disclose Ethnicity: Not nor Admit Date: 06/02/2024 Discharge Date: 06/21/2024 Attending Physician: Bobby Loja MD Follow-up Recommendations for Providers: Please continue routine management of cardiovascular risk factors including blood pressure, lipids,glucose, etc. Please note any changes to medications. Patient to follow up with PCP, Mauro Berumen MD, in 1-2 weeks. Patient to follow up with Manager Of Warehouse, Kristen Cardenas in 2-3 weeks. Patient to follow up with Cardiac Surgeon, Dr. Bobby Loja, in 4 wks. Inpatient Provider Contact Information: [facility] Section of Cardiac Surgery [facility] [address] FAX [phone] Discharge Diagnoses (Hospital Problems) Primary Diagnoses: STEMI [...] performed by Bobby Loja MD [facility] OR PRO CABG, ARTERY-VEIN, TWO N/A 06/14/2024 @CABG, TWO VENOUS GRAFTS & ARTERIAL GRAFT (WRVU 7.93) performed by Bobby Loja MD at [facility] OR PRO ENDOSCOPY W/VIDEO-ASST VEIN HARVEST, CABG N/A 06/14/2024 ENDOSCOPIC HARVEST VEIN(S) FOR CABG (WRVU 0.31) performed by Bobby Loja MD at [facility] MAIN OR PRO EXC MEDIASTINAL TUMOR N/A 06/14/2024 @EXCISION OF MEDIASTINAL TUMOR (WRVU 19.55) performed by Bobby Loja MD at [facility] MAIN OR PRO INSERT INTRA-AORTIC BALLOON ASST DEVICE PERCUTANEOUS N/A 06/13/2024 @INSERTION OF IABP,PERCUTANEOUS (WRVU 4.84) performed by Nuha Shen MD at [facility] CATH LABS PRO UNLISTED CARDIAC SURG PROCEDURE N/A 06/14/2024 EXPLORATION AND OVERSEW ATRIAL APPENDAGE (WRVU 5.94) performed by Bobby Loja MD at [facility] [place] Prior To Admission Medications Medications Prior [...] No Known Allergies History of Presentation: George Mheta is a 69 y.o. male with a PMHx of previous AR s/p PCI x3, ICM/HFrEF (LVEF 30%) s/p ICD, DMII, HTN, HLD, remote melanoma, and smoker who presented to [facility] last night via EMS after developing acute, severe chest pain while watching TV. Patient was ruled in for STEMI, given TNK, ASA, plavix, heparin gtt, and sent to [facility] [place] [place] for coronary angiography. LHC demonstrated severely calcified left coronary system with notable LCx 75/80% lesions and TYPEWRITER TESTER OM1 with ISR with collateral retrograde filling, [...] Hospital Course: George Mehta was admitted to [facility] on 06/02/2024 via the CardiologyService with an anterior STEMI after receiving lytics at OSH. He was brought to the fish farm laborer which showed severely calcified left coronary system with notable LCx 75/80% lesions and TYPEWRITER TESTER OM1 with ISR with collateral retrograde filling, [...] 2 tablespoons of dried fruit. Milk and hj-qwlxm-mocxt yogurt have 15 grams of carbs in a serving. A serving is 1 cup of milk or 3/4 cup (6 oz) of ks-wzfdk-rbiyn yogurt. Starchy vegetables have 15 grams of carbs in a serving. A serving is ?? cup of mashed potatoes or sweet potato; 1 cup winter squash; ?? of a small baked potato; ?? cup of cooked beans; or ?? cup cooked corn or green peas. Learn how much carbs to eat each day and at each meal. A dietitian or certified professional coder can teach you how to keep track [...] Bobby Loja and/or the Cardiac Surgery Physician Dip Tanker Team may be reached at . Weight: [...] Dr. Bobby Loja. You may use a Hiller Track or treadmill but avoid any pulling [...] friends, go to a movie, go to caodaism, etc. Heavy activities: No hunting, skiing, jogging, [...] while being managed by your PCP and/or Manager Of Warehouse. For future medication refills, please refer to your PCP and/or Manager Of Warehouse after your discharge from our service. Thank you REMOVE CHEST TUBE SUTURES ON OR AFTER 06/24/2024 Home oxygen therapy: N/A Follow up appointments: You should follow up with your PCP, Mauro Berumen MD, in 1-2 weeks. You should follow up with your Manager Of Warehouse, Dr CARDENAS. You have an appointment with your Cardiac Surgeon, Dr. Bobby Loja, in 4 wks. Cardiac Rehabilitation: George Mehta was seen today regarding participation in the outpatient Phase 2 Cardiac Rehabilitation at [facility]. The patient agrees to a referral to this program. The referral will be sent at discharge and the patient should be contacted by the program within 1-2 weeks from discharge. Future Appointments and Orders Future Orders Complete By Expires Referral to Cardiac Rehab [YST558 Custom] As directed Process Instructions: If no progress note charted, please enter Clinical details in comments. Scheduling Instructions: Questions: My question or request is: s/p CABG- cardiac rehab at [facility] Referral to Home Health [REF34 Custom] As directed Process Instructions: If no progress note charted, please enter Clinical details in comments. Scheduling Instructions: Comments: Please evaluate George Mehta for admission to Home Health. [address] [facility] [address] (home) Date of : 1955 Inpatient DOCUMENTATION FOR VNA SERVICES (INCLUDING THOSE PATIENTS WITH MEDICARE COVERAGE REQUIRINGHOME VNA SERVICES AND/OR HOSPICE SERVICES) PATIENT'S LOCATION: George Mehta [address] [facility] [address] (home) Telephone Information: Rail Signal Designer's Name: self In discussion with the attending physician, it is certified that this patient is under their care and that they, or a Nurse Practitioner, or Physician Dip Tanker who is working directly with them, hada [...] for services as follows: HOME HEALTH AGENCY: [facility] [address] [address] RN orders: Cardiopulmonary assessment, incisional assessment, assess [...] issues please call the Cardiology Office at [phone] FOR MEDICARE ONLY: (please delete this section [...] care: As above. Signed: KEILA HANLEY APRN [facility] Section of Cardiac Surgery [facility] [address] FAX [phone] Date: 06/21/2024 CC: MD Antonino Tinajero Joshua R, PA [address] [place] [address] [place] [address] documented in this encounter Discharge Instructions * [...] 2 tablespoons of dried fruit. Milk and cq-ssapj-wwnng yogurt have 15 grams of carbs in a serving. A serving is 1 cup of milk or 3/4 cup (6 oz) of bm-npoin-stlmv yogurt. Starchy vegetables have 15 grams of carbs in a serving. A serving is ?? cup of mashed potatoes or sweet potato; 1 cup winter squash; ?? of a small baked potato; ?? cup of cooked beans; or ?? cup cooked corn or green peas. Learn how much carbs to eat each day and at each meal. A dietitian or certified professional coder can teach you how to keep track [...] Bobby Loja and/or the Cardiac Surgery Physician Dip Tanker Team may be reached at . Weight: [...] Dr. Bobby Loja. You may use a Hiller Track or treadmill but avoid any pulling [...] friends, go to a movie, go to caodaism, etc. Heavy activities: No hunting, skiing, jogging, [...] while being managed by your PCP and/or Manager Of Warehouse. For future medication refills, please refer to your PCP and/or Manager Of Warehouse after your discharge from our service. Thank you REMOVE CHEST TUBE SUTURES ON OR AFTER 06/24/2024 Home oxygen therapy: N/A Follow up appointments: You should follow up with your PCP, Mauro Berumen MD, in 1-2 weeks. You should follow up with your Manager Of Warehouse, Dr CARDENAS. You have an appointment with your Cardiac Surgeon, Dr. Bobby Loja, in 4 wks. Cardiac Rehabilitation: George Mehta was seen today regarding participation in the outpatient Phase 2 Cardiac Rehabilitation at [facility]. The patient agrees to a referral [...] of your patient's venous access was performed [facility] Service. The following tasks [...] MARIALUISA clipping. PMH of chronic HFrEF s/p MANAGER RESOURCE/ICD, IDDM2, HTN, HLD, remote melanoma, active smoker. [...] 2 tablespoons of dried fruit. Milk and wb-rvaha-dusjg yogurt have 15 grams of carbs in a serving. A serving is 1 cup of milk or 3/4 cup (6 oz) of fi-nyzej-zthqd yogurt. Starchy vegetables have 15 grams of carbs in a serving. A serving is ?? cup of mashed potatoes or sweet potato; 1 cup winter squash; ?? of a small baked potato; ?? cup of cooked beans; or ?? cup cooked corn or green peas. Learn how much carbs to eat each day and at each meal. A dietitian or certified professional coder can teach you how to keep track [...] cheese, and peanut butter. Alejandra Baumann APRN [facility] [place] [place] Endocrinology Diabetes Management Pager [phone] Weekends please page [phone] * Eric Packer PA - 06/20/2024 7:44 AM EST Cardiac Surgery Progress Note George Mehta is a 69 y.o. male with a history of CAD s/p multiple PCI who presented with an anterior STEMI and was given lytics. Cath showed MV CAD without culprit vessel. He is now 6 Days Post-OpCABGx3 and MARIALUISA clipping. PMH of chronic HFrEF s/p MANAGER RESOURCE/ICD, IDDM2, HTN, HLD, remote melanoma, active smoker. [...] 90 Pt is followed by heart failure cosmetician at [facility] #IDDM2 DM team following Lantus, SSI Carb controlled diet #Active smoker Duoneb prn Dispo: Floor, full code, home when ready Discussed with attending surgeon on rounds this morning. 06/20/2024 Between the hours of 1800 - 0600 and on the weekends please page [phone]. * Alejandra Baumann APRN - 06/20/2024 7:21 AM EST Follow Up Diabetes Consult Patient Interview Blood glucose values and insulin use reviewed. mat sewer BG to 59 despite decrease in glargine [...] MARIALUISA clipping. PMH of chronic HFrEF s/p MANAGER RESOURCE/ICD, IDDM2, HTN, HLD, remote melanoma, active smoker. mat sewer BG to 59 despite decrease in glargine [...] based on ISF 20 Alejandra Baumann APRN [facility] [place] [place] Endocrinology Diabetes Management Pager [phone] Weekends please page [phone] Insulin Discharge Instructions Preliminary Diabetes Discharge Instructions [...] 2 tablespoons of dried fruit. Milk and yz-ilngi-isfhi yogurt have 15 grams of carbs in a serving. A serving is 1 cup of milk or 3/4 cup (6 oz) of jg-dwncg-jxgdk yogurt. Starchy vegetables have 15 grams of carbs in a serving. A serving is ?? cup of mashed potatoes or sweet potato; 1 cup winter squash; ?? of a small baked potato; ?? cup of cooked beans; or ?? cup cooked corn or green peas. Learn how much carbs to eat each day and at each meal. A dietitian or certified professional coder can teach you how to keep track [...] MARIALUISA clipping. PMH of chronic HFrEF s/p MANAGER RESOURCE/ICD, IDDM2, HTN, HLD, remote melanoma, active smoker. [...] 90 Pt is followed by heart failure cosmetician at [facility] Tx to floor #IDDM2 DM team following pre-op Lantus, SSI Carb controlled diet #Active smoker Duoneb prn Dispo: Floor status, full code Discussed with attending surgeon on rounds this morning. Jeffy Hood MD 06/19/2024 Between the hours of 1800 - 0600 and on the weekends please page [phone]. * Alejandra Baumann, VEHICLE CARE SPECIALIST - 06/19/2024 7:09 AM EST Follow Up Diabetes Consult Patient Interview Blood glucose values and insulin use reviewed. Jardiance added back yesterday, director airport operations low BGto 51. Glargine reduced to 45 [...] MARIALUISA clipping. PMH of chronic HFrEF s/p MANAGER RESOURCE/ICD, IDDM2, HTN, HLD, remote melanoma, active smoker. Jardiance added back yesterday. mat sewer low BG to 51. Glargine reduced to [...] 2 tablespoons of dried fruit. Milk and mg-jkhwr-qjiur yogurt have 15 grams of carbs in a serving. A serving is 1 cup of milk or 3/4 cup (6 oz) of fe-avkwh-vusvz yogurt. Starchy vegetables have 15 grams of carbs in a serving. A serving is ?? cup of mashed potatoes or sweet potato; 1 cup winter squash; ?? of a small baked potato; ?? cup of cooked beans; or ?? cup cooked corn or green peas. Learn how much carbs to eat each day and at each meal. A dietitian or certified professional coder can teach you how to keep track [...] cheese, and peanut butter. Alejandra Baumann APRN [facility] [place] [place] Endocrinology Diabetes Management Pager [phone] Weekends please page [phone] * Hilda Resendez PTA - 06/18/2024 9:19 AM EST Physical Therapy Note 2 Patient profile: George Mehta is a 69 y.o. male with a history of CAD s/p multiple PCI who presented with an anterior STEMI and was given lytics. Cath showed MV CAD without culprit vessel. He is now 1 Day Post-Op CABGx3 and MARIALUISA clipping. PMH of chronic HFrEF s/p MANAGER RESOURCE/ICD, IDDM2, HTN, HLD, remote melanoma, active smoker. Interval History: Per last cardiac surgery note on 06/18/2024 Cr improved 1.4 on lasix 40 iv bid -1.5L, made 2.5L urine Coreg, entresto restarted Floor status Social History: Pt lives with his in a 1 level apartment with no steps to enter. 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 He drives. He sleeps in a recliner at baseline. Precautions/Special Considerations: Sternal precautions, PIV, at risk to fall, PPM Mobility and Positioning Recommendations: Pt to utilize no AD, supervision for ambulation and transfers w/ staffing account manager as able. Please encourage up to chair [...] least restrictive device Time IN / OUT: 9686-8820 Total Time: 11 minutes; TEF 1 Hilda Resendez PTA Pager: [phone] Physical Therapy Inpatient Rehabilitation Department * Keila Hanley, VEHICLE CARE SPECIALIST - 06/18/2024 8:48 AM EST Cardiac Surgery Progress Note George Mehta is a 69 y.o. male with a history of CAD s/p multiple PCI who presented with an anterior STEMI and was given lytics. Cath showed MV CAD without culprit vessel. He is now 4 Days Post-OpCABGx3 and MARIALUISA clipping. PMH of chronic HFrEF s/p MANAGER RESOURCE/ICD, IDDM2, HTN, HLD, remote melanoma, active smoker. [...] 90 Pt is followed by heart failure cosmetician at [facility], will get name for f/up appt Tx to floor #IDDM2 DM team following pre-op Lantus, SSI Carb controlled diet ? Restarting jardiance #Active smoker Duoneb prn Dispo: CVCC, Full code, tx to floor Discussed with attending surgeon on rounds this morning. KEILA HANLEY, JOSÉ ANTONIO 06/18/2024 Between the hours of 1800 - 0600 and on the weekends please page [phone]. * Alejandra Baumann APRN - 06/17/2024 3:29 [...] MARIALUISA clipping. PMH of chronic HFrEF s/p MANAGER RESOURCE/ICD, IDDM2, HTN, HLD, remote melanoma, active smoker. [...] based on ISF 20 Alejandra Baumann APRN [facility] [place] [place] Endocrinology Diabetes Management Pager [phone] Weekends please page [phone] 35 minutes were spent over the course [...] MARIALUISA clipping. PMH of chronic HFrEF s/p MANAGER RESOURCE/ICD, IDDM2, HTN, HLD, remote melanoma, active smoker. [...] 0600 and on the weekends please page [phone]. * Raymond Carlton MD - 06/16/2024 1:11 PM EST CARDIAC CRITICAL CARE ATTENDING STAFF PROGRESS NOTE Patient seen and examined. George Mehta is a 69 y.o. male with: Active Hospital Problems Diagnosis STEMI (ST elevation myocardial infarction) Cardiac resynchronization therapy defibrillator (MANAGER RESOURCE-D) - Medtronic Amplia Cardiomyopathy, ischemic Acute on chronic heart failure with reduced ejection fraction (HFrEF, <= 40%) Coronary artery disease involving [place] coronary artery of [place] heart without angina pectoris Type 2 diabetes [...] encouragement provided Patient screened for f/u and residential mortgage underwriter met pt at bedside. Pt [...] unless consulted in the interim. RICHA Simmons Retail Analytics Manager * Octaviano Horvath PA - 06/16/2024 8:07 AM EST Cardiac Surgery Progress Note George Mehta is a 69 y.o. male with a history of CAD s/p multiple PCI who presented with an anterior STEMI and was given lytics. Cath showed MV CAD without culprit vessel. He is now 2 Days Post-OpCABGx3 and MARIALUISA clipping. PMH of chronic HFrEF s/p MANAGER RESOURCE/ICD, IDDM2, HTN, HLD, remote melanoma, active smoker. [...] 0600 and on the weekends please page [phone]. * Jono Fernandez PT - 06/15/2024 4:09 PM EST Physical Therapy Evaluation Patient profile: George Mehta is a 69 y.o. male with a history of CAD s/p multiple PCI who presented with an anterior STEMI and was given lytics. Cath showed MV CAD without culprit vessel. He is now 1 Day Post-Op CABGx3 and MARIALUISA clipping. PMH of chronic HFrEF s/p MANAGER RESOURCE/ICD, IDDM2, HTN, HLD, remote melanoma, active smoker. 24h Events: From OR on Dobutamine IABP removed Bedrest ended ~2100, sedation weaned Extubated ~0200 Dobutamine weaned to 1 this morning, CI 2.6, shut off and repeat CI 2.4 Social History: Pt lives with his in a 1 level apartment with no steps to enter. 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 He drives. He sleeps [...] outlined inthis evaluation. JONO FERNANDEZ, PT Pager: [phone] Physical Therapy Inpatient Rehabilitation Department Time IN / OUT: 0480-0961 Total Time: 33 (eval) minutes * Alejandra Baumann APRN - 06/15/2024 11:39 AM EST Follow Up Diabetes Consult Patient Interview Blood glucose values and insulin use reviewed. Pt remains on an insulin drip today following PVURa4ety MARIALUISA clipping. George continues to complain of [...] MARIALUISA clipping. PMH of chronic HFrEF s/p MANAGER RESOURCE/ICD, IDDM2, HTN, HLD, remote melanoma, active smoker. [...] based on ISF 20 Alejandra Baumann APRN [facility] [place] [place] Endocrinology Diabetes Management Pager [phone] Weekends please page [phone] 50 minutes were spent over the course [...] elevation myocardial infarction) Cardiac resynchronization therapy defibrillator (MANAGER RESOURCE-D) - Medtronic Amplia Cardiomyopathy, ischemic Acute on chronic heart failure with reduced ejection fraction (HFrEF, <= 40%) Coronary artery disease involving [place] coronary artery of [place] heart without angina pectoris Type 2 diabetes [...] with h/o DM, CAD with prior PCI, MANAGER RESOURCE-D who presented with crushing chest pain, found [...] MARIALUISA clipping. PMH of chronic HFrEF s/p MANAGER RESOURCE/ICD, IDDM2, HTN, HLD, remote melanoma, active smoker. [...] sternotomy dressing CDI, saphenectomy dressing CDi Tubes/Lines/Drains: [place], RIJ, A-line, Mediastinal marcos and bilateral pleural [...] 0600 and on the weekends please page [phone]. * Yoli Donaldson CONTRACTS PARALEGAL - 06/15/2024 5:35 AM EST AMV Protocol: [...] with h/o DM, CAD with prior PCI, MANAGER RESOURCE-D who presented with crushing chest pain, found [...] with h/o DM, CAD with prior PCI, MANAGER RESOURCE-D who presented with crushing chest pain, found [...] 0600 and on the weekends please page [phone]. * Chloé Cortez - 06/14/2024 9:36 AM [...] unless consulted in the interim. Chloé Cortez Data Conversion Operator * Jim Benites MD - 06/13/2024 1:15 [...] - Mildly dilated left ventricle size with axtpqgcs-dk-densuhmm decreased LV systolic function. LV ejection fraction [...] elevation myocardial infarction) Cardiac resynchronization therapy defibrillator (MANAGER RESOURCE-D) - Medtronic Amplia Cardiomyopathy, ischemic Acute on chronic heart failure with reduced ejection fraction (HFrEF, <= 40%) Coronary artery disease involving [place] coronary artery of [place] heart without angina pectoris Type 2 diabetes [...] info: Name: George Mehta : 1955 PCP: Mauor Berumen MD PCP phone number: [phone] Date of Admission: 06/02/2024 ( Hospital Day 10 days ) Attending:Ethel Carrillo MD ID: 69 y.o. male with a h/o DM type 2, HTN, HLD, current smoker (2-3 cigarettes/day), HFrEF with anICD for low EF (~30%), and CAD with prior AR x3 with JENNA placed in [place], [facility], [facility], presented to [facility] with 1 hour of retrosternal CP (05/13) while watching TV, found to have STEMI. Active Problems: Active Hospital Problems Diagnosis STEMI (ST elevation myocardial infarction) Cardiac resynchronization therapy defibrillator (MANAGER RESOURCE-D) - Medtronic Amplia Cardiomyopathy, ischemic Acute on chronic heart failure with reduced ejection fraction (HFrEF, <= 40%) Coronary artery disease involving [place] coronary artery of [place] heart without angina pectoris Type 2 diabetes [...] in the last 7068 hours. Invalid input(s): [id number] Recent Labs 06/12/24 0425 06/11/24 2356 06/11/24 2025 06/11/24 1624 06/11/24 1108 06/11/24 0748 06/11/24 0357 06/11/24 0050 06/10/24 1922 06/10/24 1735 06/10/24 1125 06/10/24 0746 POCGLU 132 135 210* 81 233* 184 132 144 236* 123 216* 206* Heme No results for input(s): LDH, HAPTOGLOBIN, URICACID in the last 168 hours. ABG (Arterial Blood Gas) No results found for: PHART, PO2ART, XJB7KOW, OZY8JCO Microbiology: Microbiology Results (Last 30 days) No results found for the last 720 hours. Imaging: Results for orders placed or performed during the hospital encounter of 06/02/24 XR Chest One View (Exam End: 06/03/2024 2:41 AM) Result Value WORKSTATION ID [id number] Impression No radiographically evident acute cardiopulmonary process. Thank you for letting us participate in the care of this patient. If you are a health care provider and have any questions regarding this report, please contact the number below. For patients who have questions please contact the health career advisor that requested your imaging first. Cardiac Morphology Function wwo Contrast (Exam End: 06/07/2024 1:10 PM) Result Value WORKSTATION ID [id number] Impression - Findings consistent with an ischemic [...] - Mildly dilated left ventricle size with fkjeuaai-pc-hwuaatvx decreased LV systolic function. LV ejection fraction [...] have questions please contact the health career advisor that requested your imaging first. Chest wo Contrast (Generic) (Exam End: 06/03/2024 4:33 PM) Result Value WORKSTATION ID [id number] Impression Cardiomegaly. Biventricular ICD leads in place. Thank you for letting us participate in the care of this patient. If you are a health care provider and have any questions regarding this report, please contact the number below. For patients who have questions please contact the health career advisor that requested your imaging first. Chest PA & Lateral (Generic) (Exam End: 06/07/2024 7:03 AM) Result Value WORKSTATION ID [id number] Impression Biventricular ICD leads intact and in [...] have questions please contact the health career advisor that requested your imaging first. : Limited echo performed by [facility] pricing consultant to assess LV function. Left ventricle is [...] Infusions: heparin (porcine) infusion 1,400 Units/hr (06/12/24 3289) PRN Meds:.insulin lispro, glucose 40% oral geL [...] Patient stable, asymptomatic. Plan to go to fish farm laborer for balloon pump tomorrow, then willgo [...] CODE Dain Colón MD Cardiology, M1-S2, Pager #[phone] 06/12/24 Associated attestation - Ethel Carrillo MD [...] of two midnights or is on the [facility] inpatient only procedure list (status C) due to: acute myocardial infarction requiring titration of IV medication and fluid monitoring and decompensated congestive heart failure requiring IV medication and fluid monitoring Ethel Carrillo MD Cardiovascular Medicine Personal Pager [phone] 06/12/2024 9:12 PM * Alejandra Baumann, VEHICLE CARE SPECIALIST - 06/11/2024 4:21 PM EST Images from [...] too aggressive, suggest ICR 1:6 (rule of [id number]/81 = 6.25). George is up and walking [...] ac, metformin 1000mg BID Alejandra Baumann APRN [facility] [place] Endocrinology Diabetes Management Pager [phone] Weekends please page [phone] 35 minutes were spent over the course [...] PCP: Mauro Berumen MD PCP phone number: [phone] Date of Admission: 06/02/2024 ( Hospital Day 9 days ) Attending:Melida Valdes MD ID: 69 y.o. male with a h/o DM type 2, HTN, HLD, current smoker (2-3 cigarettes/day), HFrEF with anICD for low EF (~30%), and CAD with prior AR x3 with JENNA placed in [place], Melanoma, PAD, presented to [facility] with 1 hour of retrosternal CP (05/13) while watching TV, found to have STEMI. Active Problems: Active Hospital Problems Diagnosis STEMI (ST elevation myocardial infarction) Cardiac resynchronization therapy defibrillator (MANAGER RESOURCE-D) - Medtronic Amplia Cardiomyopathy, ischemic Acute on chronic heart failure with reduced ejection fraction (HFrEF, <= 40%) Coronary artery disease involving [place] coronary artery of [place] heart without angina pectoris Type 2 diabetes [...] in the last 7068 hours. Invalid input(s): [id number] Recent Labs 06/11/24 0357 06/11/24 0050 06/10/24 1922 06/10/24 1735 06/10/24 1125 06/10/24 0746 06/10/24 0423 06/10/24 0005 06/09/24 2036 06/09/24 1727 06/09/24 1152 06/09/24 0810 POCGLU 132 144 236* 123 216* 206* 154 125 197 174 211* 209* Heme No results for input(s): LDH, HAPTOGLOBIN, URICACID in the last 168 hours. ABG (Arterial Blood Gas) No results found for: PHART, PO2ART, NFF3WSJ, MGZ9KCD Microbiology: Microbiology Results (Last 30 days) No results found for the last 720 hours. Imaging: Results for orders placed or performed during the hospital encounter of 06/02/24 XR Chest One View (Exam End: 06/03/2024 2:41 AM) Result Value WORKSTATION ID [id number] Impression No radiographically evident acute cardiopulmonary process. Thank you for letting us participate in the care of this patient. If you are a health care provider and have any questions regarding this report, please contact the number below. For patients who have questions please contact the health career advisor that requested your imaging first. Cardiac Morphology Function wwo Contrast (Exam End: 06/07/2024 1:10 PM) Result Value WORKSTATION ID [id number] Impression - Findings consistent with an ischemic [...] - Mildly dilated left ventricle size with npxxthvg-zs-xkheykud decreased LV systolic function. LV ejection fraction [...] have questions please contact the health career advisor that requested your imaging first. Chest wo Contrast (Generic) (Exam End: 06/03/2024 4:33 PM) Result Value WORKSTATION ID [id number] Impression Cardiomegaly. Biventricular ICD leads in place. Thank you for letting us participate in the care of this patient. If you are a health care provider and have any questions regarding this report, please contact the number below. For patients who have questions please contact the health career advisor that requested your imaging first. Chest PA & Lateral (Generic) (Exam End: 06/07/2024 7:03 AM) Result Value WORKSTATION ID [id number] Impression Biventricular ICD leads intact and in [...] have questions please contact the health career advisor that requested your imaging first. : Limited echo performed by [facility] pricing consultant to assess LV function. Left ventricle is [...] Infusions: heparin (porcine) infusion 1,400 Units/hr (06/10/24 5110) PRN Meds:.insulin lispro, glucose 40% oral geL [...] CODE Dain Colón MD Cardiology, M1-S2, Pager #[phone] 06/11/24 Associated attestation - Ethel Carrillo MD [...] Ethel Carrillo MD Cardiovascular Medicine Personal Pager [phone] 06/11/2024 9:35 PM * Chana Bellecole Lyn - 06/10/2024 12:39 PM EST Nutrition Services Note George Mehta is a 69 y.o. male Reason for intervention: hospital day 9 Nutrition Plan: Continue diet order: 60/60/75 CHO Level 2 Encourage good PO Lasix and Insulin noted Monitor weight Patient scheduled for a hospital day 9 nutrition evaluation. Lehr Tender attempted to meet with pt at bedside [...] unless consulted in the interim. Hilary Belle Retail Analytics Manager * Mariia Montero RN - 06/10/2024 12:23 PM EST I have met with the patient to: discuss discharge planning needs. provide the [facility] [place], Office of Care Management letter from the Ocular Pathologist pertaining to rehab referrals. provide a letter describing our affiliations within the [facility] and educate about their right to choose where referrals are sent. provide a list of Home Health Agencies / Durable Medical Equipment vendors which serve their preferred geographic area. provided patient with CMS Star Quality Rating handout. They have requested referrals to: [facility] [address] [place] [id number] RN / PT Anticipated d/c date: 06/20/24 Note routed to a Fender Mechanic who will communicate referrals to facilities and provide any required information. * Dain Colón MD - 06/10/2024 7:17 AM EST Images from the original note were not included. . Cardiology Progress Note Patient info: Name: George Mehta : 1955 PCP: Mauro Berumen MD PCP phone number: [phone] Date of Admission: 06/02/2024 ( Hospital Day 8 days ) Attending:Melida Valdes MD ID: 69 y.o. male with a h/o DM type 2, HTN, HLD, current smoker (2-3 cigarettes/day), HFrEF with anICD for low EF (~30%), and CAD with prior AR x3 with JENNA placed in [place], Melanoma, PAD, presented to [facility] with 1 hour of retrosternal CP (05/13) while watching TV, found to have STEMI. Active Problems: Active Hospital Problems Diagnosis STEMI (ST elevation myocardial infarction) Cardiac resynchronization therapy defibrillator (MANAGER RESOURCE-D) - Medtronic Amplia Cardiomyopathy, ischemic Acute on chronic heart failure with reduced ejection fraction (HFrEF, <= 40%) Coronary artery disease involving [place] coronary artery of [place] heart without angina pectoris Type 2 diabetes [...] in the last 7068 hours. Invalid input(s): [id number] Recent Labs 06/10/24 0423 06/10/24 0005 06/09/24 2036 06/09/24 1727 06/09/24 1152 06/09/24 0810 06/09/24 0440 06/09/24 0034 06/08/24 2027 06/08/24 1616 06/08/24 1235 06/08/24 0810 POCGLU 154 125 197 174 211* 209* 131 186 176 159 226* 190 Heme No results for input(s): LDH, HAPTOGLOBIN, URICACID in the last 168 hours. ABG (Arterial Blood Gas) No results found for: PHART, PO2ART, OZI1PSL, PLV0BVW Microbiology: Microbiology Results (Last 30 days) No results found for the last 720 hours. Imaging: Results for orders placed or performed during the hospital encounter of 06/02/24 XR Chest One View (Exam End: 06/03/2024 2:41 AM) Result Value WORKSTATION ID [id number] Impression No radiographically evident acute cardiopulmonary process. Thank you for letting us participate in the care of this patient. If you are a health care provider and have any questions regarding this report, please contact the number below. For patients who have questions please contact the health career advisor that requested your imaging first. Cardiac Morphology Function wwo Contrast (Exam End: 06/07/2024 1:10 PM) Result Value WORKSTATION ID [id number] Impression - Findings consistent with an ischemic [...] - Mildly dilated left ventricle size with oagmugfs-ec-fpwmqhdz decreased LV systolic function. LV ejection fraction [...] have questions please contact the health career advisor that requested your imaging first. Chest wo Contrast (Generic) (Exam End: 06/03/2024 4:33 PM) Result Value WORKSTATION ID [id number] Impression Cardiomegaly. Biventricular ICD leads in place. Thank you for letting us participate in the care of this patient. If you are a health care provider and have any questions regarding this report, please contact the number below. For patients who have questions please contact the health career advisor that requested your imaging first. Chest PA & Lateral (Generic) (Exam End: 06/07/2024 7:03 AM) Result Value WORKSTATION ID [id number] Impression Biventricular ICD leads intact and in [...] have questions please contact the health career advisor that requested your imaging first. : Limited echo performed by [facility] pricing consultant to assess LV function. Left ventricle is [...] CODE Dain Colón MD Cardiology, M1-S2, Pager #[phone] 06/10/24 Associated attestation - Melida Valdes MD [...] a lytic and brought directly to the Remote Encoding Operations Supervisor. Cardiac catheterization demonstrated multivessel disease with severe [...] who is agreeable Melida Valdes MD Staff Manager Of Warehouse * Cherelle Fregoso APRN - 06/09/2024 8:59 [...] PCP: Mauro Berumen MD PCP phone number: [phone] Date of Admission: 06/02/2024 ( Hospital Day 7 days ) Attending:Melida Valdes MD ID: 69 y.o. male with a h/o DM type 2, HTN, HLD, current smoker (2-3 cigarettes/day), HFrEF with anICD for low EF (~30%), and CAD with prior AR x3 with JENNA placed in [place], Melanoma, PAD, presented to [facility] with 1 hour of retrosternal CP (05/13) while watching TV, found to have STEMI. Active Problems: Active Hospital Problems Diagnosis STEMI (ST elevation myocardial infarction) Acute on chronic heart failure with reduced ejection fraction (HFrEF, <= 40%) Coronary artery disease involving [place] coronary artery of [place] heart without angina pectoris Type 2 diabetes [...] in the last 7068 hours. Invalid input(s): [id number] Recent Labs 06/09/24 0440 06/09/24 0034 06/08/24 2027 06/08/24 1616 06/08/24 1235 06/08/24 0810 06/08/24 0409 06/07/24 2357 06/07/24 2005 06/07/24 1631 06/07/24 1105 06/07/24 1103 POCGLU 131 186 176 159 226* 190 151 188 118 174 221* 250* Heme No results for input(s): LDH, HAPTOGLOBIN, URICACID in the last 168 hours. ABG (Arterial Blood Gas) No results found for: PHART, PO2ART, GBS7GVA, JIL6SSP Microbiology: Microbiology Results (Last 30 days) No results found for the last 720 hours. Imaging: Results for orders placed or performed during the hospital encounter of 06/02/24 XR Chest One View (Exam End: 06/03/2024 2:41 AM) Result Value WORKSTATION ID [id number] Impression No radiographically evident acute cardiopulmonary process. Thank you for letting us participate in the care of this patient. If you are a health care provider and have any questions regarding this report, please contact the number below. For patients who have questions please contact the health career advisor that requested your imaging first. Cardiac Morphology Function wwo Contrast (Exam End: 06/07/2024 1:10 PM) Result Value WORKSTATION ID [id number] Impression - Findings consistent with an ischemic [...] - Mildly dilated left ventricle size with xbgoqprz-wi-nghtmspc decreased LV systolic function. LV ejection fraction [...] have questions please contact the health career advisor that requested your imaging first. Chest wo Contrast (Generic) (Exam End: 06/03/2024 4:33 PM) Result Value WORKSTATION ID [id number] Impression Cardiomegaly. Biventricular ICD leads in place. Thank you for letting us participate in the care of this patient. If you are a health care provider and have any questions regarding this report, please contact the number below. For patients who have questions please contact the health career advisor that requested your imaging first. Chest PA & Lateral (Generic) (Exam End: 06/07/2024 7:03 AM) Result Value WORKSTATION ID [id number] Impression Biventricular ICD leads intact and in [...] have questions please contact the health career advisor that requested your imaging first. : Limited echo performed by [facility] pricing consultant to assess LV function. Left ventricle is [...] Infusions: heparin (porcine) infusion 1,400 Units/hr (06/08/24 8818) PRN Meds:.glucose 40% oral geL OR dextrose [...] CODE Dain Colón MD Cardiology, M1-S2, Pager #[phone] 06/09/24 Associated attestation - Melida Valdes MD [...] a lytic and brought directly to the Remote Encoding Operations Supervisor. Cardiac catheterization demonstrated multivessel disease with severe [...] insertion low EF. Melida Valdes MD Staff Manager Of Warehouse * Alejandra Baumann, VEHICLE CARE SPECIALIST - 06/08/2024 4:10 PM EST Images from [...] to optimize glucose control Alejandra Baumann APRN [facility] [place] Endocrinology Diabetes Management Pager [phone] Weekends please page [phone] 35 minutes were spent over the course [...] . Cardiology Progress Note Patient info: Name: Georeg Mehta : 1955 PCP: Mauro Berumen MD PCP phone number: [phone] Date of Admission: 06/02/2024 ( Hospital Day 6 days ) Attending:Melida Valdes MD ID: 69 y.o. male with a h/o DM type 2, HTN, HLD, current smoker (2-3 cigarettes/day), HFrEF with anICD for low EF (~30%), and CAD with prior AR x3 with JENNA placed in [place], Melanoma, PAD, presented to [facility] with 1 hour of retrosternal CP (05/13) while watching TV, found to have STEMI. Active Problems: Active Hospital Problems Diagnosis STEMI (ST elevation myocardial infarction) Acute on chronic heart failure with reduced ejection fraction (HFrEF, <= 40%) Coronary artery disease involving [place] coronary artery of [place] heart without angina pectoris Type 2 diabetes [...] in the last 7068 hours. Invalid input(s): [id number] Recent Labs 06/08/24 0409 06/07/24 2357 06/07/24200406/07/24 1631 06/07/24 1105 06/07/24 1103 06/07/24 0745 06/07/24 0425 06/07/24 0008 06/06/24 2018 06/06/24 1539 06/06/24 1339 POCGLU 151 188 118 174 221* 250* 175 127 182 143 147 317* Heme No results for input(s): LDH, HAPTOGLOBIN, URICACID in the last 168 hours. ABG (Arterial Blood Gas) No results found for: PHART, PO2ART, ZZC6NWS, KMI8GQC Microbiology: Microbiology Results (Last 30 days) No results found for the last 720 hours. Imaging: Results for orders placed or performed during the hospital encounter of 06/02/24 XR Chest One View (Exam End: 06/03/2024 2:41 AM) Result Value WORKSTATION ID [id number] Impression No radiographically evident acute cardiopulmonary process. Thank you for letting us participate in the care of this patient. If you are a health care provider and have any questions regarding this report, please contact the number below. For patients who have questions please contact the health career advisor that requested your imaging first. Cardiac Morphology Function wwo Contrast (Exam End: 06/07/2024 1:10 PM) Result Value WORKSTATION ID [id number] Impression - Findings consistent with an ischemic [...] - Mildly dilated left ventricle size with lcpjegzp-vr-ybfuybyk decreased LV systolic function. LV ejection fraction [...] have questions please contact the health career advisor that requested your imaging first. Chest wo Contrast (Generic) (Exam End: 06/03/2024 4:33 PM) Result Value WORKSTATION ID [id number] Impression Cardiomegaly. Biventricular ICD leads in place. Thank you for letting us participate in the care of this patient. If you are a health care provider and have any questions regarding this report, please contact the number below. For patients who have questions please contact the health career advisor that requested your imaging first. Chest PA & Lateral (Generic) (Exam End: 06/07/2024 7:03 AM) Result Value WORKSTATION ID [id number] Impression Biventricular ICD leads intact and in [...] have questions please contact the health career advisor that requested your imaging first. : Limited echo performed by [facility] pricing consultant to assess LV function. Left ventricle is [...] Infusions: heparin (porcine) infusion 1,400 Units/hr (06/08/24 5969) PRN Meds:.insulin lispro, potassium chloride ER OR [...] CODE Dain Colón MD Cardiology, M1-S2, Pager #[phone] 06/08/24 Associated attestation - Melida Valdes MD [...] a lytic and brought directly to the Remote Encoding Operations Supervisor. Cardiac catheterization demonstrated multivessel disease with severe [...] Otherwise clinically stable Melida Valdes MD Staff Manager Of Warehouse * Ross Manuel PA - 06/07/2024 12:00 PM EST Cardiac Electrophysiology CIED Interrogation/Programming Note Asked by MRI staff to evaluate and program Medtronic MANAGER RESOURCE-D to allow for MR imaging. Patient Active Problem List Diagnosis ','STEMI (ST elevation myocardial infarction) Acute on chronic heart failure with reduced ejection fraction (HFrEF, <= 40%) Coronary artery disease involving [place] coronary artery of [place] heart without angina pectoris Type 2 diabetes mellitus Device Data: Medtronic Amplia MRI Quad MANAGER RESOURCE-D OHBG3QU #[id number] 06/16/2019 RA Medtronic 4076 CapSureFix Novus [id number] 06/16/2019 RV Medtronic 6935M [id number] 06/16/2019 LV Medtronic 4298 Attain Performa MRI [id number] 06/16/2019 DDD @ 50/130/130 Adaptive Bi-V and LV VF >188bpm ATP, 35j x6 FVT >188-222bpm burst 2, 35jx5 VT Battery longevity: 2.5yrs; charge time 4s P wave: 2.3mV R wave: >20.0mV Atrial impedance: 458 ohms RV impedance: 646 ohms LV impedance: 722 ohms Atrial threshold: 0.5V @ 0.4ms RV threshold: LV threshold: 1.75V @ 0.4ms AP 0.2% SILVICULTURE TEACHER 97.7% AT/AF 0% Impression and Plan: 1. Interrogated device to determine suitability for MRI 2. Programmed to MRI safe mode - VOO @ 70 3. Scan performed 4. Programming restored to baseline settings 5. Reinterrogated to verify appropriate function and settings 6. Device follow up as previously scheduled Provider: HENOK Meyer EP Consult attending physician: Libby Barton MD EP Consult positional pager #[phone](EPMD) EP Device interrogation positional pager # [phone] * Dain Colón MD - 06/07/2024 7:09 AM EST Images from the original note were not included. . Cardiology Progress Note Patient info: Name: George Mehta : 1955 PCP: Mauro Berumen MD PCP phone number: [phone] Date of Admission: 06/02/2024 ( Hospital Day 5 days ) Attending:Melida Valdes MD ID: 69 y.o. male with a h/o DM type 2, HTN, HLD, current smoker (2-3 cigarettes/day), HFrEF with anICD for low EF (~30%), and CAD with prior AR x3 with JENNA placed in [place], Melanoma, PAD, presented to [facility] with 1 hour of retrosternal CP (05/13) while watching TV, found to have STEMI. Active Problems: Active Hospital Problems Diagnosis STEMI (ST elevation myocardial infarction) Acute on chronic heart failure with reduced ejection fraction (HFrEF, <= 40%) Coronary artery disease involving [place] coronary artery of [place] heart without angina pectoris Type 2 diabetes [...] in the last 7068 hours. Invalid input(s): [id number] Recent Labs 06/07/24 0425 06/07/24 0008 06/06/24 2018 06/06/24 1539 06/06/24 1339 06/06/24 1134 06/06/24 0757 06/06/24 0653 06/05/24 2231 06/05/24 1622 06/05/24 1134 06/05/24 0727 POCGLU 127 182 143 147 317* 264* 195 187 238* 205* 211* 166 Heme No results for input(s): LDH, HAPTOGLOBIN, URICACID in the last 168 hours. ABG (Arterial Blood Gas) No results found for: PHART, PO2ART, WPL2GQJ, XCL5GPU Microbiology: Microbiology Results (Last 30 days) No results found for the last 720 hours. Imaging: Results for orders placed or performed during the hospital encounter of 06/02/24 XR Chest One View (Exam End: 06/03/2024 2:41 AM) Result Value WORKSTATION ID [id number] Impression No radiographically evident acute cardiopulmonary process. Thank you for letting us participate in the care of this patient. If you are a health care provider and have any questions regarding this report, please contact the number below. For patients who have questions please contact the health career advisor that requested your imaging first. Chest wo Contrast (Generic) (Exam End: 06/03/2024 4:33 PM) Result Value WORKSTATION ID [id number] Impression Cardiomegaly. Biventricular ICD leads in place. Thank you for letting us participate in the care of this patient. If you are a health care provider and have any questions regarding this report, please contact the number below. For patients who have questions please contact the health career advisor that requested your imaging first. : Limited echo performed by [facility] network pricing consultant to assess LV function. Left ventricle is [...] Infusions: heparin (porcine) infusion 1,400 Units/hr (06/06/24 1069) PRN Meds:.insulin lispro, potassium chloride ER OR [...] Dain Colón MD (PGY-1) Cardiology, M1-S2, Pager #[phone] 06/07/24 Associated attestation - Melida Valdes MD [...] a lytic and brought directly to the Remote Encoding Operations Supervisor. Cardiac catheterization demonstrated multivessel disease with severe [...] for further guidance. Melida Valdes MD Staff Manager Of Warehouse * Dani Colón MD - 06/06/2024 7:17 AM EST Images from the original note were not included. . Cardiology Progress Note Patient info: Name: George Mehta : 1955 PCP: Mauro Berumen MD PCP phone number: [phone] Date of Admission: 06/02/2024 ( Hospital Day 4 days ) Attending:Melida Valdes MD ID: 69 y.o. male with a h/o DM type 2, HTN, HLD, current smoker (2-3 cigarettes/day), HFrEF with anICD for low EF (~30%), and CAD with prior AR x3 with JENNA placed in [place], Melanoma, PAD, presented to [facility] with 1 hour of retrosternal CP (05/13) while watching TV, found to have STEMI. Active Problems: Active Hospital Problems Diagnosis STEMI (ST elevation myocardial infarction) Acute on chronic heart failure with reduced ejection fraction (HFrEF, <= 40%) Coronary artery disease involving [place] coronary artery of [place] heart without angina pectoris Type 2 diabetes [...] in the last 7068 hours. Invalid input(s): [id number] Recent Labs 06/06/24 0653 06/05/24 2231 06/05/24 1622 06/05/24 1134 06/05/24 0727 06/04/24 1943 06/04/24 1526 06/04/24 1109 06/04/24 0711 06/03/24 2005 06/03/24 1748 06/03/24 1114 POCGLU 187 238* 205* 211* 166 175 154 188 182 136 191 166 Heme No results for input(s): LDH, HAPTOGLOBIN, URICACID in the last 168 hours. ABG (Arterial Blood Gas) No results found for: PHART, PO2ART, OIV0TIA, ZLB0GOJ Microbiology: Microbiology Results (Last 30 days) No results found for the last 720 hours. Imaging: Results for orders placed or performed during the hospital encounter of 06/02/24 XR Chest One View (Exam End: 06/03/2024 2:41 AM) Result Value WORKSTATION ID [id number] Impression No radiographically evident acute cardiopulmonary process. Thank you for letting us participate in the care of this patient. If you are a health care provider and have any questions regarding this report, please contact the number below. For patients who have questions please contact the health career advisor that requested your imaging first. Chest wo Contrast (Generic) (Exam End: 06/03/2024 4:33 PM) Result Value WORKSTATION ID [id number] Impression Cardiomegaly. Biventricular ICD leads in place. Thank you for letting us participate in the care of this patient. If you are a health care provider and have any questions regarding this report, please contact the number below. For patients who have questions please contact the health career advisor that requested your imaging first. : Limited echo performed by fellow healthcare network pricing consultant to assess LV function. Left ventricle is [...] Dain Colón MD (PGY-1) Cardiology, M1-S2, Pager #[phone] 06/06/24 Associated attestation - Melida Valdes MD [...] a lytic and brought directly to the Remote Encoding Operations Supervisor. Cardiac catheterization demonstrated multivessel disease with severe [...] management. Help appreciated Melida Valdes MD Staff Manager Of Warehouse * Frederick Dunn MD - 06/05/2024 8:13 AM EDT Images from the original note were not included. . Cardiology Progress Note Patient info: Name: George Mehta : 1955 PCP: Mauro Berumen MD PCP phone number: [phone] Date of Admission: 06/02/2024 ( Hospital Day 3 days ) Attending:Melida Valdes MD ID: 69 y.o. male with a h/o DM type 2, HTN, HLD, current smoker (2-3 cigarettes/day), HFrEF with anICD for low EF (~30%), and CAD with prior AR x3 with JENNA placed in [place], Melanoma, PAD, presented to [facility] with 1 hour of retrosternal CP [...] in the last 7068 hours. Invalid input(s): [id number] Recent Labs 06/05/24 1134 06/05/24 0727 06/04/24 1943 06/04/24 1526 06/04/24 1109 06/04/24 0711 06/03/24 2005 06/03/24 1748 06/03/24 1114 06/03/24 0754 06/02/24 2331 POCGLU 211* 166 175 154 188 182 136 191 166 195 156 Heme No results for input(s): LDH, HAPTOGLOBIN, URICACID in the last 168 hours. ABG (Arterial Blood Gas) No results found for: PHART, PO2ART, QLX8FRZ, KOK5DYU Microbiology: Microbiology Results (Last 30 days) No results found for the last 720 hours. Imaging: Results for orders placed or performed during the hospital encounter of 06/02/24 XR Chest One View (Exam End: 06/03/2024 2:41 AM) Result Value WORKSTATION ID [id number] Impression No radiographically evident acute cardiopulmonary process. Thank you for letting us participate in the care of this patient. If you are a health care provider and have any questions regarding this report, please contact the number below. For patients who have questions please contact the health career advisor that requested your imaging first. Chest wo Contrast (Generic) (Exam End: 06/03/2024 4:33 PM) Result Value WORKSTATION ID [id number] Impression Cardiomegaly. Biventricular ICD leads in place. Thank you for letting us participate in the care of this patient. If you are a health care provider and have any questions regarding this report, please contact the number below. For patients who have questions please contact the health career advisor that requested your imaging first. : Limited echo performed by fellow healthcare network pricing consultant to assess LV function. Left ventricle is [...] all the information they need regarding the MANAGER RESOURCE-D.Plan for MRI tomorrow. Starting 40 mg IV [...] a lytic and brought directly to the Remote Encoding Operations Supervisor. Cardiac catheterization demonstrated multivessel disease with severe [...] maintenance of 40. Melida Valdes MD Staff Manager Of Warehouse * Migel Javier RN - 06/05/2024 6:21 AM EDT Implanted device record scanned into: Chart Review-->Media-->External Cardiology-->03/25/2024. [employer] [place] MRI Quad CRTD [id number] Serial #: [id number] DDD mode A + Bi/V Rates 50-130 Migel Javier RN * Dain Colón MD - 06/04/2024 11:16 AM EDT Implant Records Requested Type: MANAGER RESOURCE-D Healthcare Specialist: [employer] Product: [id number] Amplia MRI MRI compatibility: Compatible for 1.5-3 T Model #: [id number] Placed at: [place], [place] Records requested for MRI: 1. Operative report 2. Implant log I requested that these records be sent to our MRI department, Dain Colón MD 06/04/24 11:58 AM * Dain Colón MD - 06/04/2024 6:57 AM EDT Images from the original note were not included. . Cardiology Progress Note Patient info: Name: George Mehta : 1955 PCP: Mauro Berumen MD PCP phone number: [phone] Date of Admission: 06/02/2024 ( Hospital Day 2 days ) Attending:Delroy Fofana MD ID: 69 y.o. male with a h/o DM type 2, HTN, HLD, current smoker (2-3 cigarettes/day), HFrEF with anICD for low EF (~30%), and CAD with prior AR x3 with JENNA placed in [place], Melanoma, PAD, presented to [facility] with 1 hour of retrosternal CP [...] in the last 7068 hours. Invalid input(s): [id number] Recent Labs 06/03/24 2005 06/03/24 1748 06/03/24 1114 06/03/24 0754 06/02/24 2331 POCGLU 136 191 166 195 156 Heme No results for input(s): LDH, HAPTOGLOBIN, URICACID in the last 168 hours. ABG (Arterial Blood Gas) No results found for: PHART, PO2ART, BSF8XZV, TRR7YML Microbiology: Microbiology Results (Last 30 days) No results found for the last 720 hours. Imaging: Results for orders placed or performed during the hospital encounter of 06/02/24 XR Chest One View (Exam End: 06/03/2024 2:41 AM) Result Value WORKSTATION ID [id number] Impression No radiographically evident acute cardiopulmonary process. Thank you for letting us participate in the care of this patient. If you are a health care provider and have any questions regarding this report, please contact the number below. For patients who have questions please contact the health career advisor that requested your imaging first. Chest wo Contrast (Generic) (Exam End: 06/03/2024 4:33 PM) Result Value WORKSTATION ID [id number] Impression Cardiomegaly. Biventricular ICD leads in place. Thank you for letting us participate in the care of this patient. If you are a health care provider and have any questions regarding this report, please contact the number below. For patients who have questions please contact the health career advisor that requested your imaging first. : Limited echo performed by fellow healthcare network pricing consultant to assess LV function. Left ventricle is [...] -Lasix 40 mg IV given in the fish farm laborer; assess diuretic response, consider re-dosing -Continue [...] a lytic and brought directly to the Remote Encoding Operations Supervisor. Cardiac catheterization demonstrated multivessel disease with severe [...] Friday -Diuresis with Jovanni Valdes MD Staff Manager Of Warehouse * Fatmata Mcallister PT - 06/03/2024 3:29 [...] vs PCI) Fatmata Mcallister PT, MSPT Pager [phone] Inpatient Physical Therapy * Marlin Gómez MD [...] Marlin Gómez MD Cardiology S2, Pager # [phone] 06/03/2024 * Delroy Fofana MD - 06/03/2024 7:16 AM EDT Images from the original note were not included. . Cardiology Progress Note Patient info: Name: George Mehta : 1955 PCP: Mauro Berumen MD PCP phone number: [phone] Date of Admission: 06/02/2024 ( Hospital Day 1 day ) Attending:Nuha Rojo MD ID: 69 y.o. male with a h/o DM type 2, HTN, HLD, current smoker (2-3 cigarettes/day), HFrEF with anICD for low EF (~30%), and CAD with prior AR x3 with JENNA placed in [place], Melanoma, PAD, presented to [facility] with 1 hour of retrosternal CP [...] in the last 7068 hours. Invalid input(s): [id number] Recent Labs 06/02/24 2331 POCGLU 156 Heme No results for input(s): LDH, HAPTOGLOBIN, URICACID in the last 168 hours. ABG (Arterial Blood Gas) No results found for: PHART, PO2ART, EZL8BJZ, PHM3STQ Microbiology: Microbiology Results (Last 30 days) No results found for the last 720 hours. Imaging: Results for orders placed or performed during the hospital encounter of 06/02/24 XR Chest One View (Exam End: 06/03/2024 2:41 AM) Result Value WORKSTATION ID [id number] Impression No radiographically evident acute cardiopulmonary process. Thank you for letting us participate in the care of this patient. If you are a health care provider and have any questions regarding this report, please contact the number below. For patients who have questions please contact the health career advisor that requested your imaging first. : Limited echo performed by fellow healthcare network pricing consultant to assess LV function. Left ventricle is [...] -Lasix 40 mg IV given in the fish farm laborer; assess diuretic response, consider re-dosing -Continue [...] plan of care per Dain Colón MD (bilingual medical receptionist). Please refer to his note above for details. Very pleasant 69 year old male but he is obese, diabetic, and he is a SMOKER with known prior CAD and moderately reduced LVEF (30%). He has a pacer. History of surgical resection of melanoma on his head. The patient was transferred overnight to [facility] [place] as a STEMI. He was treated initially with a lytic (TNK) and brought directly to the fish farm laborer. The cath demonstrated 3VD with diffuse [...] - 06/13/2024 10:58 AM EST ICU Blue (#1935) H&P Patient info: Name: George Mehta : 1955 PCP: Mauro Berumen MD PCP phone number: [phone] Date of Admission: 06/02/2024 ( Hospital Day 11 days ) Attending:Haja Byrnes MD ID: George Mehta is a 69 y.o. male with a h/o DM type 2, HTN, HLD, current smoker (2-3 cigarettes/day), HFrEF with an ICD for low EF (~30%), and CAD with prior AR x3 with JENNA placed in [place], Melanoma, PAD, presented to [facility] with 1 hour of retrosternal CP (05/13) while watching TV, foundto have STEMI. HPI: Shahnaz Scanlon H&P 06/02 69 y.o. male with a h/o DM type 2, HTN, HLD, current smoker (2-3 cigarettes/day), HFrEF with an ICD for low EF (~30%), and CAD with prior AR x3 with JENNA placed in [place], Melanoma, PAD, presented to [facility] with 1 hour of retrosternal CP (05/13) while watching TV. CP was non-radiating, not asso ciated with diaphoresis, nausea, or SOB. Denies orthopnea, MARTÍNEZ, palpitations, or LE edema. ECG showed findings consistent with anterior STEMI. He received TNK and was transferred for PCI. Coronary angiography showed a small, non-dominant RCA with krvb-ps-hwskpakh disease and a dominant,heavily calcified left system with prior stents in the LAD and OM. The LM bifurcates into the LAD and LCX, both heavily calcified. The proximal LCX has a 75% calcified, aneurysmal lesion, and an 80% calcified lesion distally before a large OM2. OM1 is a TYPEWRITER TESTER with in-stent restenosis, filling retrograde via collaterals. [...] 40 mg Lasix was administered in the fish farm laborer. Cardiac surgery was consulted and plan [...] Blood Gas) No results for input(s): PHART, NAC8NVQ, PO2ART, AYI3TPX, LACTATEVEN, WRJ6ABX, PFRATIOART2 in the last 168 hours. VBG (Venous Blood Gas) Recent Labs 06/10/24 1742 PHVEN 7.34 PO2VEN 24 MIC5BZR 27.4 Mixed Venous Sat No results for input(s): Z4DVUN6 in the last 168 hours. Intake/Output Summary [...] in the last 7068 hours. Invalid input(s): [id number] Recent Labs 06/13/24 0741 06/13/24 0325 06/12/24 2353 06/12/24 1932 06/12/24 1541 06/12/24 1121 06/12/24 0800 06/12/24 0425 06/11/24 2356 06/11/24 2025 06/11/24 1624 06/11/24 1108 POCGLU 126 99 141 158 113 207* 169 132 135 210* 81 233* Heme No results for input(s): LDH, HAPTOGLOBIN, URICACID in the last 168 hours. ABG (Arterial Blood Gas) No results for input(s): PHART, JKK1ETO, PO2ART, TZZ0JRW, LACTATEVEN, OQP4BCD, PFRATIOART2 in the last 168 hours. VBG (Venous Blood Gas) Recent Labs 06/10/24 1742 PHVEN 7.34 PO2VEN 24 IQR4TUR 27.4 Mixed Venous Sat No results for input(s): K1QKOU6 in the last 168 hours. Microbiology: Microbiology [...] Plan for CABG 06/14. Patient NPO at [place]. #ASCVD / STEMI: -Holding Plavix; continue ASA [...] (Give Meds) Daily Healthy Menu Choices/Cardiac diet ([facility] [place]-Diet) DVT Prophylaxis: SCD GI Prophylaxis: None Dispo: [...] is in the chart Rebeca Prado MD Lapper PGY6 [id number] * Shahnaz Scanlon MD - [...] prior AR x3 with JENNA placed in [place], Melanoma, PAD, presented to [facility] with 1 hour of retrosternal CP (05/13) while watching TV. CP was non-radiating, not assoc iated with diaphoresis, nausea, or SOB. Denies orthopnea, MARTÍNEZ, palpitations, or LE edema. ECG showed findings consistent with anterior STEMI. He received TNK and was transferred for PCI. Coronary angiography showed a small, non-dominant RCA with jroe-iv-gueldgtz disease and a dominant,heavily calcified left system with prior stents in the LAD and OM. The LM bifurcates into the LAD and LCX, both heavily calcified. The proximal LCX has a 75% calcified, aneurysmal lesion, and an 80% calcified lesion distally before a large OM2. OM1 is a TYPEWRITER TESTER with in-stent restenosis, filling retrograde via collaterals. [...] 40 mg Lasix was administered in the fish farm laborer. Past Medical History: As per HPI [...] Affect: Mood normal. Behavior: Behavior normal. Diagnostics: [facility] 06/02/2024 Coronary angiography revealed small [...] -Lasix 40 mg IV given in the fish farm laborer; assess diuretic response. -Continue carvedilol; hold [...] & Follow-up Care: Contact information for follow-up [facility] [address] [facility] [address] Cardiac Rehab, [address] [facility] [address] JAMIE GRAMAJO confirmed with [facility] that they [...] Implemented as Appropriate) 06/20/2024 1028 by Michelle Orozoc RN Outcome: Ongoing (Interventions Implemented as Appropriate) [...] shift summary OUTCOME EVALUATION NOTE: OUTCOME SUMMARY: Geroge Mehta is a 69 y.o. male admitted [...] Roberts RN - 06/18/2024 10:50 AM EST [facility] [place] [place] CARDIAC REHABILITATION George Mehta was seen today regarding participation in the outpatient Phase 2 Cardiac Rehabilitation at [facility]. The patient agrees to a referral [...] recs Patient is insured through: Primary Insurance: [employer] MANAGED MEDICARE Payor: AARP MANAGED MEDICARE / Plan: AARP [facility] MANAGED MEDICARE COMPLETE / Product Type: *No Product type* / Secondary Insurance: N/A Last Physical Therapy Recommendation: (home with ) with to be determined (06/15/24 1028) Plan for discharge is: Home w/ Services Outpatient Agency/Support Group Needs: Homecare agency Agency Choices: [facility] Services: Medication checks, Registered Nurse, Physical Therapy Agency Referrals: pending clinical course and PT/OT recs [facility]. [address] [facility] [address] PHONE: [phone] FAX: [phone] Transportation: family or friend will provide Barriers [...] Agency/Support Group Needs: Homecare agency Agency Choices: [facility]: Medication checks, Registered Nurse, Physical Therapy Agency Referrals: pending clinical course and PT/OT recs [facility] [address] [place] [address] PHONE: [phone] FAX: [phone] Transportation: family or friend will provide Barriers [...] Loja MD - 06/14/2024 8:48 AM EST [facility] [place] [place] Operative Note Patient Name: George Mehta : [id number] MR#: [id number] Case Date: 06/14/2024 Surgeon: Surgeons and Role: * Bobby Loja MD - Primary * Rashi Bass PA - Physician Dip Tanker Preoperative diagnosis: CAD, MARIALUISA flickering mass on [...] all belongings with patient. PLAN MOVING FORWARD: lab asst and transfer to [facility]. INDIVIDUALIZED FALL PREVENTION [...] No Patient is insured through: Primary Insurance: [facility] MANAGED MEDICARE Payor: AARP MANAGED MEDICARE / Plan: AARP [facility] MANAGED MEDICARE COMPLETE / Product Type: *No Product type* / Secondary Insurance: N/A Plan for discharge is: Home w/ Services Outpatient Agency/Support Group Needs: Homecare agency, Agency Choices: [facility] Home Health Services: Medication checks, Registered Nurse, Physical Therapy Agency Referrals: [facility] [address] [place] [address] RN / PT Routed 06/10 Transportation: family [...] with home health services when medically ready. skirt clipper/Fire Loss Prevention Engineer will continue to follow patient???s progress and remain available if situation changes for coordination of care, psychosocial support and/or discharge planning. Anticipated Date of Discharge: 06/18/2024 Mariia Montero RN CM Extension [phone] * Plan of Care - Migel Javier [...] through: Primary Insurance: AAR MANAGED MEDICARE Payor: [facility] MANAGED MEDICARE / Plan: [facility] MANAGED MEDICARE COMPLETE / Product Type: [...] consult for high risk PCI vs CABG skirt clipper/Fire Loss Prevention Engineer will continue to follow patient???s progress and remain available if situation changes for coordination of care, psychosocial support and/or discharge planning. Anticipated Date of Discharge: 06/11/2024 Mariia Montero RN Extension [phone] * Plan of Care - Becca Hope [...] Absence of Bleeding 06/07/2024 06 by Becca Hope RN Outcome: [...] Breakfast- varies - eggs with khoury or swedish muffin Lunch- turkey sandwich Supper- meat and [...] Infusions: heparin (porcine) infusion 1,400 Units/hr (06/06/24 3000) PRN: insulin lispro, potassium chloride ER OR [...] Baumann APRN Endocrinology Diabetes Management Service Pager: [phone] Weekends please page [phone] 80 minute visit was spent in counseling [...] mid to high 80's. PLAN MOVING FORWARD: [facility] draws w/ AM labs. Continue with CT [...] Embolism Signs and Symptoms 06/05/2024631 by Migel Javire RN Outcome: Ongoing (Interventions Implemented as Appropriate) [...] remote melanoma, and smoker who presented to [facility] last night via EMS after developing acute, severe chest pain while watching TV. Patient was ruled in for STEMI, given TNK, ASA, plavix, heparin gtt, and sent to [facility] [place] [place] for coronary angiography. LHC demonstrated severely calcified left coronary system with notable LCx 75/80% lesions and TYPEWRITER TESTER OM1 with ISR with collateral retrograde filling, [...] Infusions: heparin (porcine) infusion 1,000 Units/hr (06/03/24 3590) PRN Meds:.sodium chloride 0.9 % (flush), lidocaine, [...] is large. OM1 appears to be a TYPEWRITER TESTER, with in stentrestenosis and fills retrograde via [...] y.o. male admitted with STEMI s/p TNK, [facility] showing multivessel CAD including ISR, [...] to our service. Signed: Paula Treviño PA-C [facility] Section of Cardiac Surgery Date: 06/03/2024 * Initial Assessments - Catina Estrada MSW - 06/03/2024 10:32 AM EDT Office of Care Management Initial Assessment CHINA Humphrey reviewed record and discussed patient with Care Team. Source of Information: Team, bedside nurse, medical record, and Patient ESCORT PATIENTS Introduced self/reviewed role; services accepted. Admitted From: Transfer from another hospital Location: [facility] Reason for Hospitalization: Chest Pain while watching TV, doctors said I had a heart attack Past medical History: No past medical history on file. Hospitalizations Within the Past 30 Days: no previous admission in last 30 days Current Decision-Making Capacity: Self If AD's have not been completed the following surrogate would be surrogate decision maker per [place] surrogate decision making law. (Only good for 180 days) Any patient receiving care in [place] must abide by [place] law. The hierarchy for surrogate decision making [...] (i) The agent with financial power of cane furniture maker or a conservator appointed in accordance with [...] were you homeless or living in a custodial (including now)?: No In the past 12 months has the electric, gas, oil, or water [place] threatened to shut off services in your [...] in the bathroom) Home Address confirmed as: [address] [place] [address] [address] [facility] [address] Social & Family Supports: All names listed [...] MEDICARE Payor: AAR MANAGED MEDICARE / Plan: [facility] MANAGED MEDICARE COMPLETE / Product Type: *No Product type* / Secondary Insurance: N/A ; Prescription Coverage: Yes Preferred Pharmacy: [id number] - [facility], [place] - [address] [facility] [address] [place] [id number] [place] Status: Patient is a : No Primary Care Provider confirmed: Mauro Berumen MD [phone] Patient/Caregiver Goals of Treatment: Potential Needs for [...] care as indicated. CHINA Min Cardiology, [phone]. [phone] * Brief Op Note - Angeles Gaxiola PA - 06/03/2024 12:23 AM EDT Preliminary Cardiac Catheterization Procedure Note: Patient Name: George Mehta : [id number] MR#: [id number] Case Date: 06/02/2024 - 06/03/2024 Tire Recapping Machine Operator: Surgeons and Role: * Nuha Shen MD - Primary * Angeles Gaxiola PA - Physician Dip Tanker Preoperative diagnosis: STEMI Postoperative diagnosis: * STEMI * Procedure(s) performed: RRA access [facility] Coronary angiogram IVUS LM/LAD/LCX Access: [...] prior AR and 3 stents historically (in [place]) who presented to [facility] with 1 hour of rest chest [...] is large. OM1 appears to be a TYPEWRITER TESTER, with in stentrestenosis and fills retrograde via [...] receive 40 mg of lasix in the fish farm laborer. 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) 06/14/2024 7:34 AM EST CAD Endoscopy W/Video-Asst Vein [place], Cabg ([id number]) 06/14/2024 7:34 AM EST CAD Cabg, Artery-Vein, Two ([id number]) 06/14/2024 7:34 AM EST CAD Cabg, Arterial, Single ([id number]) 06/14/2024 7:34 AM EST CAD TRANSESOPHAGEAL ECHOCARDIOGRAM IN THE OR Routine 06/14/2024 7:20 AM EST Coronary artery disease involving [place] coronary artery of [place] heart without angina pectoris POC, GLUCOSE Routine [...] * POC, GLUCOSE (06/21/2024 3:51 AM EST) [facility] Glucometer, POC 142 65 - 199 mg/dL 06/21/2024 3:51 AM EST [facility] Comment:Supplemental ranges: <140 mg/dL before meals <180 mg/dL all other times of the day. Blood CAPILLARY BLOOD / Unknown 06/21/2024 3:51 AM EST 06/21/2024 3:51 AM EST Bobby Loja MD POINT OF CARE TEST O RDERABLES [facility] [place] [address] * (ABNORMAL) Basic Metabolic Panel (06/21/2024 2:09 AM EST) Glucose 169 65 - 199 mg/dL 06/21/2024 3:10 AM [facility] Comment:Glucose Concentratio n >=200 mg/dL plus symptoms is consistent with Diabetes Mellitus. Blood Urea Nitrogen 27(H) 10 - 20 mg/dL 06/21/2024 3:10 AM [facility] Creatinine 1.24 0.80 - 1.50 mg/dL 06/21/2024 3:10 AM [facility] Sodium 138 135 - 145 mMol/L 06/21/2024 3:10 AM [facility] Potassium 4.2 3.5 - 5.0 mMol/L 06/21/2024 3:10 AM [facility] Chloride 100 98 - 107 mMol/L 06/21/2024 3:10 AM [facility] Carbon Dioxide 27 22 - 31 mMol/L 06/21/2024 3:10 AM [facility] Anion Gap 11 5 - 15 mMol/L 06/21/2024 3:10 AM [facility] Calcium 8.7 8.5 - 10.5 mg/dL 06/21/2024 3:10 AM [facility] Est Glomerular Filtration Rate - Male 64 mL/min/1. 73 m?? 06/21/2024 3:10 AM [facility] Comment: This patient's [...] APRN CHEMISTRY ORDERABL ES Performing Organization Address City/[facility]/ZIP Co de Phone Number [facility] [place] [place] [address] * POC, GLUCOSE (06/21/2024 12:04 AM EST) Glucometer, POC 157 65 - 199 mg/dL 06/21/2024 12:04 AM EST [facility] Comment:Supplemental ranges: <140 mg/dL before meals <180 mg/dL all other times of the day. Blood CAPILLARY BLOOD / Unknown 06/21/2024 12:04 AM EST 06/21/2024 12:04 AM EST Bobby Loja MD POINT OF CARE TEST O NIKA Performing Organization Address [facility] Co de Phone Number [facility] [place] [place] [address] * POC, GLUCOSE (06/20/2024 11:14 PM EST) Glucometer, POC 67 65 - 199 mg/dL 06/20/2024 11:14 PM EST [facility] Comment:Supplemental ranges: <140 mg/dL before meals <180 mg/dL all other times of the day. Blood CAPILLARY BLOOD / Unknown 06/20/2024 11:14 PM EST 06/20/2024 11:14 PM EST Bobby Loja MD POINT OF CARE TEST O NIKA Performing Organization Address City/[facility]/ZIP Co de Phone Number [facility] [place] [place] [address] * POC, GLUCOSE (06/20/2024 7:16 PM EST) Glucometer, POC 132 65 - 199 mg/dL 06/20/2024 7:16 PM EST [facility] Comment:Supplemental ranges: <140 mg/dL before meals <180 mg/dL all other times of the day. Blood CAPILLARY BLOOD / Unknown 06/20/2024 7:16 PM EST 06/20/2024 7:16 PM EST Bobby Loja MD POINT OF CARE TEST O NIKA Performing Organization Address City/[facility]/ZIP Co de Phone Number [facility] [place] [place] [address] * POC, GLUCOSE (06/20/2024 3:39 PM EST) Glucometer, POC 124 65 - 199 mg/dL 06/20/2024 3:40 PM EST [facility] Comment:Supplemental ranges: <140 mg/dL before meals <180 mg/dL all other times of the day. Blood CAPILLARY BLOOD / Unknown 06/20/2024 3:39 PM EST 06/20/2024 3:40 PM EST Bobby Loja MD POINT OF CARE TEST O NIKA Performing Organization Address [facility]/ZIP Co de Phone Number [facility] [place] [place] [address] * POC, GLUCOSE (06/20/2024 12:02 PM EST) Glucometer, POC 173 65 - 199 mg/dL 06/20/2024 12:03 PM EST [facility] Comment:Supplemental ranges: <140 mg/dL before meals <180 mg/dL all other times of the day. Blood CAPILLARY BLOOD / Unknown 06/20/2024 12:02 PM EST 06/20/2024 12:03 PM EST Bobby Loja MD POINT OF CARE TEST O NIKA [facility] [place] [address] * POC, GLUCOSE (06/20/2024 7:10 AM EST) Glucometer, POC 130 65 - 199 mg/dL 06/20/2024 7:11 AM EST [facility] Comment:Supplemental ranges: <140 mg/dL before meals <180 mg/dL all other times of the day. Blood CAPILLARY BLOOD / Unknown 06/20/2024 7:10 AM EST 06/20/2024 7:11 AM EST Bobby Loja MD POINT OF CARE TEST O NIKA [facility] [place] [address] * (ABNORMAL) Basic Metabolic Panel (06/20/2024 2:28 AM EST) Glucose 79 65 - 199 mg/dL 06/20/2024 3:06 AM [facility] Comment:Glucose Concentratio n >=200 mg/dL plus symptoms is consistent with Diabetes Mellitus. Blood Urea Nitrogen 38(H) 10 - 20 mg/dL 06/20/2024 3:06 AM [facility] Creatinine 1.39 0.80 - 1.50 mg/dL 06/20/2024 3:06 AM [facility] Sodium 137 135 - 145 mMol/L 06/20/2024 3:06 AM [facility] Potassium 3.6 3.5 - 5.0 mMol/L 06/20/2024 3:06 AM [facility] Chloride 100 98 - 107 mMol/L 06/20/2024 3:06 AM [facility] Carbon Dioxide 29 22 - 31 mMol/L 06/20/2024 3:06 AM [facility] Anion Gap 8 5 - 15 mMol/L 06/20/2024 3:06 AM [facility] Calcium 8.4(L) 8.5 - 10.5 mg/dL 06/20/2024 3:06 AM EST [facility] Est Glomerular Filtration Rate - Male 56 mL/min/1. 73 m?? 06/20/2024 3:06 AM EST [facility] Comment: This patient's estimated [...] APRN CHEMISTRY ORDERABL ES Performing Organization Address City/[facility]/ZIP Co de Phone Number [facility] [place] [place] [address] * POC, GLUCOSE (06/20/2024 12:32 AM EST) Glucometer, POC 86 65 - 199 mg/dL 06/20/2024 12:32 AM EST [facility] Comment:Supplemental ranges: <140 mg/dL before meals <180 mg/dL all other times of the day. Blood CAPILLARY BLOOD / Unknown 06/20/2024 12:32 AM EST 06/20/2024 12:32 AM EST Bobby Loja MD POINT OF CARE TEST O RDERABLES [facility] [place] [address] * (ABNORMAL) POC, GLUCOSE (06/20/2024 12:02 AM EST) Glucometer, POC 59(L) 65 - 199 mg/dL 06/20/2024 12:02 AM EST [facility] Comment:Supplemental ranges: <140 mg/dL before meals <180 mg/dL all other times of the day. Blood CAPILLARY BLOOD / Unknown 06/20/2024 12:02 AM EST 06/20/2024 12:03 AM EST Bobby Loja MD POINT OF CARE TEST O NIKA Performing Organization Address City/[facility]/ZIP Co de Phone Number [facility] [place] [address] * POC, GLUCOSE (06/19/2024 8:15 PM EST) Glucometer, POC 131 65 - 199 mg/dL 06/19/2024 8:15 PM EST [facility] Comment:Supplemental ranges: <140 mg/dL before meals <180 mg/dL all other times of the day. Blood CAPILLARY BLOOD / Unknown 06/19/2024 8:15 PM EST 06/19/2024 8:15 PM EST Bobby Loja MD POINT OF CARE TEST O NIKA Performing Organization Address [facility] Co de Phone Number [facility] [place] [address] * POC, GLUCOSE (06/19/2024 6:01 PM EST) Glucometer, POC 129 65 - 199 mg/dL 06/19/2024 6:01 PM EST [facility] Comment:Supplemental ranges: <140 mg/dL before meals <180 mg/dL all other times of the day. Blood CAPILLARY BLOOD / Unknown 06/19/2024 6:01 PM EST 06/19/2024 6:02 PM EST Bobby Loja MD POINT OF CARE TEST O NIKA Performing Organization Address City/[facility]/ZIP Co de Phone Number [facility] [place] [address] * POC, GLUCOSE (06/19/2024 4:51 PM EST) Glucometer, POC 155 65 - 199 mg/dL 06/19/2024 4:51 PM EST [facility] Comment:Supplemental ranges: <140 mg/dL before meals <180 mg/dL all other times of the day. Blood CAPILLARY BLOOD / Unknown 06/19/2024 4:51 PM EST 06/19/2024 4:51 PM EST Bobby Loja MD POINT OF CARE TEST O RDERAPIETER Performing Organization Address City/[facility]/ZIP Co de Phone Number [facility] [place] [address] * POC, GLUCOSE (06/19/2024 12:37 PM EST) Glucometer, POC 136 65 - 199 mg/dL 06/19/2024 12:37 PM EST [facility] Comment:Supplemental ranges: <140 mg/dL before meals <180 mg/dL all other times of the day. Blood CAPILLARY BLOOD / Unknown 06/19/2024 12:37 PM EST 06/19/2024 12:37 PM EST Bobby Loja MD POINT OF CARE TEST O NIKA Performing Organization Address City/[facility]/ZIP Co de Phone Number [facility] [place] [address] * POC, GLUCOSE (06/19/2024 11:20 AM EST) Glucometer, POC 185 65 - 199 mg/dL 06/19/2024 11:21 AM EST [facility] Comment:Supplemental ranges: <140 mg/dL before meals <180 mg/dL all other times of the day. Blood CAPILLARY BLOOD / Unknown 06/19/2024 11:20 AM EST 06/19/2024 11:21 AM EST Bobby Loja MD POINT OF CARE TEST O NIKA [facility] [place] [address] * POC, GLUCOSE (06/19/2024 7:21 AM EST) Glucometer, POC 125 65 - 199 mg/dL 06/19/2024 7:21 AM EST [facility] Comment:Supplemental ranges: <140 mg/dL before meals <180 mg/dL all other times of the day. Blood CAPILLARY BLOOD / Unknown 06/19/2024 7:21 AM EST 06/19/2024 7:22 AM EST Bobby Loja MD POINT OF CARE TEST O NIKA Performing Organization Address City/[facility] Co de Phone Number [facility] [place] [address] * POC, GLUCOSE (06/19/2024 4:52 AM EST) Glucometer, POC 125 65 - 199 mg/dL 06/19/2024 4:52 AM EST [facility] Comment:Supplemental ranges: <140 mg/dL before meals <180 mg/dL all other times of the day. Blood CAPILLARY BLOOD / Unknown 06/19/2024 4:52 AM EST 06/19/2024 4:52 AM EST Bobby Loja MD POINT OF CARE TEST O NIKA Performing Organization Address City/[facility]/ZIP Co de Phone Number [facility] [place] [place] [address] * POC, GLUCOSE (06/19/2024 4:13 AM EST) Glucometer, POC 67 65 - 199 mg/dL 06/19/2024 4:13 AM EST [facility] Comment:Supplemental ranges: <140 mg/dL before meals <180 mg/dL all other times of the day. Blood CAPILLARY BLOOD / Unknown 06/19/2024 4:13 AM EST 06/19/2024 4:13 AM EST Bobby Loja MD POINT OF CARE TEST O NIKA Performing Organization Address City/[facility]/ZIP Co de Phone Number [facility] [place] [address] * (ABNORMAL) POC, GLUCOSE (06/19/2024 3:48 AM EST) Glucometer, POC 51(LLL) 65 - 199 mg/dL 06/19/2024 3:48 AM EST [facility] Comment:Supplemental ranges: <140 mg/dL before meals <180 mg/dL all other times of the day. Blood CAPILLARY BLOOD / Unknown 06/19/2024 3:48 AM EST 06/19/2024 3:48 AM EST Bobby Loja MD POINT OF CARE TEST O NIKA Performing Organization Address [facility] Co de Phone Number [facility] [place] [address] * (ABNORMAL) Basic Metabolic Panel (06/19/2024 3:44 AM EST) Glucose 53(LLL) 65 - 199 mg/dL 06/19/2024 4:48 AM [facility] Comment:Glucose Concentratio n >=200 mg/dL plus symptoms is consistent with Diabetes Mellitus. Blood Urea Nitrogen 42(H) 10 - 20 mg/dL 06/19/2024 4:48 AM [facility] Creatinine 1.29 0.80 - 1.50 mg/dL 06/19/2024 4:48 AM [facility] Sodium 138 135 - 145 mMol/L 06/19/2024 4:48 AM [facility] Potassium 3.6 3.5 - 5.0 mMol/L 06/19/2024 4:48 AM [facility] Chloride 100 98 - 107 mMol/L 06/19/2024 4:48 AM [facility] Carbon Dioxide 29 22 - 31 mMol/L 06/19/2024 4:48 AM [facility] Anion Gap 9 5 - 15 mMol/L 06/19/2024 4:48 AM EST [facility] Calcium 8.8 8.5 - 10.5 mg/dL 06/19/2024 4:48 AM EST [facility] Est Glomerular Filtration Rate - Male 61 mL/min/1. 73 m?? 06/19/2024 4:48 AM EST [facility] Comment: This patient's estimated [...] EST Keila Hanley APRN CHEMISTRY ORDERABL ES [facility] [place] [place] [address] * POC, GLUCOSE (06/19/2024 12:23 AM EST) [facility] Signature Glucometer, POC 82 65 - 199 mg/dL 06/19/2024 12:23 AM EST [facility] Comment:Supplemental ranges: <140 mg/dL before meals <180 mg/dL all other times of the day. Blood CAPILLARY BLOOD / Unknown 06/19/2024 12:23 AM EST 06/19/2024 12:23 AM EST Bobby Loja MD POINT OF CARE TEST O RDERABLES [facility] [place] [address] * POC, GLUCOSE (06/18/2024 11:08 PM EST) Glucometer, POC 73 65 - 199 mg/dL 06/18/2024 11:08 PM EST [facility] Comment:Supplemental ranges: <140 mg/dL before meals <180 mg/dL all other times of the day. Blood CAPILLARY BLOOD / Unknown 06/18/2024 11:08 PM EST 06/18/2024 11:08 PM EST Bobby Loja MD POINT OF CARE TEST O NIKA Performing Organization Address City/[facility]/ZIP Co de Phone Number [facility] [place] [address] * POC, GLUCOSE (06/18/2024 7:32 PM EST) Glucometer, POC 167 65 - 199 mg/dL 06/18/2024 7:32 PM EST [facility] Comment:Supplemental ranges: <140 mg/dL before meals <180 mg/dL all other times of the day. Blood CAPILLARY BLOOD / Unknown 06/18/2024 7:32 PM EST 06/18/2024 7:32 PM EST Bobby Loja MD POINT OF CARE TEST O NIKA Performing Organization Address City/[facility]/ZIP Co de Phone Number [facility] [place] [address] * POC, GLUCOSE (06/18/2024 6:08 PM EST) Glucometer, POC 140 65 - 199 mg/dL 06/18/2024 6:09 PM EST [facility] Comment:Supplemental ranges: <140 mg/dL before meals <180 mg/dL all other times of the day. Blood CAPILLARY BLOOD / Unknown 06/18/2024 6:08 PM EST 06/18/2024 6:09 PM EST Bobby Loja MD POINT OF CARE TEST O NIKA [facility] [place] [address] * POC, GLUCOSE (06/18/2024 4:17 PM EST) Glucometer, POC 144 65 - 199 mg/dL 06/18/2024 4:17 PM EST [facility] Comment:Supplemental ranges: <140 mg/dL before meals <180 mg/dL all other times of the day. Blood CAPILLARY BLOOD / Unknown 06/18/2024 4:17 PM EST 06/18/2024 4:17 PM EST Bobby Loja MD POINT OF CARE TEST O NIKA Performing Organization Address City/[facility]/ZIP Co de Phone Number [facility] [place] [address] * POC, GLUCOSE (06/18/2024 12:09 PM EST) Glucometer, POC 180 65 - 199 mg/dL 06/18/2024 12:09 PM EST [facility] Comment:Supplemental ranges: <140 mg/dL before meals <180 mg/dL all other times of the day. Blood CAPILLARY BLOOD / Unknown 06/18/2024 12:09 PM EST 06/18/2024 12:09 PM EST Bobby Loja MD POINT OF CARE TEST Abimael MAHER Performing Organization Address City/[facility]/ZIP Co de Phone Number [facility] [place] [address] * POC, GLUCOSE (06/18/2024 7:49 AM EST) Glucometer, POC 125 65 - 199 mg/dL 06/18/2024 7:50 AM EST [facility] Comment:Supplemental ranges: <140 mg/dL before meals <180 mg/dL all other times of the day. Blood CAPILLARY BLOOD / Unknown 06/18/2024 7:49 AM EST 06/18/2024 7:50 AM EST Bobby Loja MD POINT OF CARE TEST O RDERABLES [facility] [place] [address] * (ABNORMAL) Basic Metabolic Panel (06/18/2024 4:19 AM EST) Glucose 103 65 - 199 mg/dL 06/18/2024 5:03 AM [facility] Comment:Glucose Concentratio n >=200 mg/dL plus symptoms is consistent with Diabetes Mellitus. Blood Urea Nitrogen 43(H) 10 - 20 mg/dL 06/18/2024 5:03 AM [facility] Creatinine 1.45 0.80 - 1.50 mg/dL 06/18/2024 5:03 AM [facility] Sodium 131(L) 135 - 145 mMol/L 06/18/2024 5:03 AM [facility] Potassium 4.2 3.5 - 5.0 mMol/L 06/18/2024 5:03 AM [facility] Chloride 97(L) 98 - 107 mMol/L 06/18/2024 5:03 AM [facility] Carbon Dioxide 25 22 - 31 mMol/L 06/18/2024 5:03 AM [facility] Anion Gap 9 5 - 15 mMol/L 06/18/2024 5:03 AM [facility] Calcium 8.5 8.5 - 10.5 mg/dL 06/18/2024 5:03 AM [facility] Est Glomerular Filtration Rate - Male 53 mL/min/1. 73 m?? 06/18/2024 5:03 AM [facility] Comment: This patient's [...] APRN CHEMISTRY ORDERABL ES Performing Organization Address City/[facility]/ZIP Co de Phone Number [facility] [place] [address] * POC, GLUCOSE (06/18/2024 3:50 AM EST) Glucometer, POC 99 65 - 199 mg/dL 06/18/2024 3:51 AM EST [facility] Comment:Supplemental ranges: <140 mg/dL before meals <180 mg/dL all other times of the day. Blood CAPILLARY BLOOD / Unknown 06/18/2024 3:50 AM EST 06/18/2024 3:51 AM EST Bobby Loja MD POINT OF CARE TEST O NIKA Performing Organization Address [facility] Co de Phone Number [facility] [place] [place] [address] * POC, GLUCOSE (06/17/2024 11:10 PM EST) Glucometer, POC 92 65 - 199 mg/dL 06/17/2024 11:10 PM EST [facility] Comment:Supplemental ranges: <140 mg/dL before meals <180 mg/dL all other times of the day. Blood CAPILLARY BLOOD / Unknown 06/17/2024 11:10 PM EST 06/17/2024 11:10 PM EST Bobby Loja MD POINT OF CARE TEST O NIKA Performing Organization Address City/[facility]/ZIP Co de Phone Number [facility] [place] [place] [address] * POC, GLUCOSE (06/17/2024 7:54 PM EST) Glucometer, POC 126 65 - 199 mg/dL 06/17/2024 7:54 PM EST [facility] Comment:Supplemental ranges: <140 mg/dL before meals <180 mg/dL all other times of the day. Blood CAPILLARY BLOOD / Unknown 06/17/2024 7:54 PM EST 06/17/2024 7:54 PM EST Bobby Loja MD POINT OF CARE TEST O NIKA Performing Organization Address [facility] Co de Phone Number [facility] [place] [place] [address] * POC, GLUCOSE (06/17/2024 4:07 PM EST) Glucometer, POC 141 65 - 199 mg/dL 06/17/2024 4:12 PM EST [facility] Comment:Supplemental ranges: <140 mg/dL before meals <180 mg/dL all other times of the day. Blood CAPILLARY BLOOD / Unknown 06/17/2024 4:07 PM EST 06/17/2024 4:12 PM EST Bobby Loja MD POINT OF CARE TEST O NIKA Performing Organization Address [facility] Co de Phone Number [facility] [place] [place] [address] * XR Chest PA & Lateral (Generic) (06/17/2024 1:46 PM EST) WORKSTATION ID [id number] RAD Anatomical Region Laterality Modality Chest N/A [...] have questions please contact the health career advisor that requested your imaging first. ? Electronically signed by: Josselyn Spence MD, [facility] ([phone]), at 06/17/2024 4:49 PM Narrative 06/17/2024 4:49 [...] who have questions please contactthe health career advisor that requested your imaging first. Electronically signed by: Josselyn Spence MD, [facility]([phone]), at 06/17/2024 4:49 PM Keila Hanley JOSÉ ANTONIO IMG DX ORDERABLES * (ABNORMAL) POC, GLUCOSE (06/17/2024 11:04 AM EST) Glucometer, POC 245(H) 65 - 199 mg/dL 06/17/2024 11:04 AM EST [facility] Comment:Supplemental ranges: <140 mg/dL before meals <180 mg/dL all other times of the day. Blood CAPILLARY BLOOD / Unknown 06/17/2024 11:04 AM EST 06/17/2024 11:04 AM EST Bobby Loja MD POINT OF CARE TEST O NIKA Performing Organization Address City/[facility] Co de Phone Number [facility] [place] [address] * POC, GLUCOSE (06/17/2024 7:49 AM EST) Glucometer, POC 141 65 - 199 mg/dL 06/17/2024 7:55 AM EST [facility] Comment:Supplemental ranges: <140 mg/dL before meals <180 mg/dL all other times of the day. Blood CAPILLARY BLOOD / Unknown 06/17/2024 7:49 AM EST 06/17/2024 7:55 AM EST Bobby Loja MD POINT OF CARE TEST O NIKA [facility] [place] [place] [address] * POC, GLUCOSE (06/17/2024 4:16 AM EST) Glucometer, POC 139 65 - 199 mg/dL 06/17/2024 4:16 AM EST [facility] Comment:Supplemental ranges: <140 mg/dL before meals <180 mg/dL all other times of the day. Blood CAPILLARY BLOOD / Unknown 06/17/2024 4:16 AM EST 06/17/2024 4:17 AM EST Bobby Loja MD POINT OF CARE TEST O RDERABLES Performing Organization Address City/[facility]/ZIP Co de Phone Number [facility] [place] [place] [address] * Lactate, Whole Blood (06/17/2024 2:39 AM EST) Pathologist [facility] Lactate, Whole Blood 1.3 0.5 - 2.2 mmol/L 06/17/2024 2:46 AM EST [facility] Blood VENOUS BLOOD SPECIMEN / Unknown Venipuncture / Unknown 06/17/2024 2:39 AM EST 06/17/2024 2:43 AM EST Bobby Loja MD CHEMISTRY ORDERABLES Performing Organization Address City/[facility] Co de Phone Number [facility] [place] [place] [address] * (ABNORMAL) Hemogram (06/17/2024 2:39 AM EST) [facility] White Blood Cell 13.53(H) 4.00 - 9.50 [...] - 35.7 g/dL 06/17/2024 2:53 AM EST [facility] Platelet 101(L) 145 - [...] EST Bobby Loja MD HEMATOLOGY ORDERABLE S [facility] [place] [address] * (ABNORMAL) Basic Metabolic Panel (06/17/2024 2:39 AM EST) Glucose 149 65 - 199 mg/dL 06/17/2024 3:14 AM [facility] Comment:Glucose Concentratio n >=200 mg/dL plus symptoms is consistent with Diabetes Mellitus. Blood Urea Nitrogen 42(H) 10 - 20 mg/dL 06/17/2024 3:14 AM [facility] Creatinine 1.52(H) 0.80 - 1.50 mg/dL 06/17/2024 3:14 AM [facility] Sodium 133(L) 135 - 145 mMol/L 06/17/2024 3:14 AM [facility] Potassium 4.5 3.5 - 5.0 mMol/L 06/17/2024 3:14 AM [facility] Chloride 101 98 - 107 mMol/L 06/17/2024 3:14 AM [facility] Carbon Dioxide 23 22 - 31 mMol/L 06/17/2024 3:14 AM [facility] Anion Gap 9 5 - 15 mMol/L 06/17/2024 3:14 AM [facility] Calcium 8.8 8.5 - 10.5 mg/dL 06/17/2024 3:14 AM [facility] Est Glomerular Filtration Rate - Male 50 mL/min/1. 73 m?? 06/17/2024 3:14 AM [facility] Comment: This patient's [...] AM EST Bobby Loja MD CHEMISTRY ORDERABLES [facility] [place] [address] * (ABNORMAL) POC, GLUCOSE (06/17/2024 12:13 AM EST) [facility] Signature Glucometer, POC 211(H) 65 - 199 mg/dL 06/17/2024 12:13 AM EST [facility] Comment:Supplemental ranges: <140 mg/dL before meals <180 mg/dL all other times of the day. Blood CAPILLARY BLOOD / Unknown 06/17/2024 12:13 AM EST 06/17/2024 12:14 AM EST Bobby Loja MD POINT OF CARE TEST O NIKA Performing Organization Address [facility] Co de Phone Number [facility] [place] [place] [address] * (ABNORMAL) POC, GLUCOSE (06/16/2024 7:22 PM EST) Glucometer, POC 229(H) 65 - 199 mg/dL 06/16/2024 7:22 PM EST [facility] Comment:Supplemental ranges: <140 mg/dL before meals <180 mg/dL all other times of the day. Blood CAPILLARY BLOOD / Unknown 06/16/2024 7:22 PM EST 06/16/2024 7:22 PM EST Bobby Loja MD POINT OF CARE TEST Abimael MAHER Performing Organization Address [facility] de Phone Number [facility] [place] [address] * (ABNORMAL) POC, GLUCOSE (06/16/2024 6:14 PM EST) Glucometer, POC 220(H) 65 - 199 mg/dL 06/16/2024 6:14 PM EST [facility] Comment:Supplemental ranges: <140 mg/dL before meals <180 mg/dL all other times of the day. Blood CAPILLARY BLOOD / Unknown 06/16/2024 6:14 PM EST 06/16/2024 6:14 PM EST Bobby Loja MD POINT OF CARE TEST O NIKA Performing Organization Address [facility] Co de Phone Number [facility] [place] [place] [address] * Lactate, Whole Blood (06/16/2024 6:14 PM EST) Lactate, Whole Blood 1.8 0.5 - 2.2 mmol/L 06/16/2024 6:27 PM EST [facility] Blood VENOUS BLOOD SPECIMEN / Unknown Venipuncture / Unknown 06/16/2024 6:14 PM EST 06/16/2024 6:25 PM EST Narrative Authorizing Provider Result Saranya Loja MD CHEMISTRY ORDERABLES [facility] [place] [address] * (ABNORMAL) POC, GLUCOSE (06/16/2024 4:14 PM EST) Glucometer, POC 240(H) 65 - 199 mg/dL 06/16/2024 4:14 PM EST [facility] Comment:Supplemental ranges: <140 mg/dL before meals <180 mg/dL all other times of the day. Blood CAPILLARY BLOOD / Unknown 06/16/2024 4:14 PM EST 06/16/2024 4:14 PM EST Bobby Loja MD POINT OF CARE TEST O RDERAPIETER Performing Organization Address City/[facility]/ZIP Co de Phone Number [facility] [place] [address] * POC, GLUCOSE (06/16/2024 11:49 AM EST) Glucometer, POC 199 65 - 199 mg/dL 06/16/2024 11:49 AM EST [facility] Comment:Supplemental ranges: <140 mg/dL before meals <180 mg/dL all other times of the day. Blood CAPILLARY BLOOD / Unknown 06/16/2024 11:49 AM EST 06/16/2024 11:49 AM EST Bobby Loja MD POINT OF CARE TEST O RDBECKIE [facility] [place] [address] * (ABNORMAL) Hemogram (06/16/2024 11:44 AM EST) White Blood Cell 17.91(H) 4.00 - 9.50 x10(3)/mc L 06/16/2024 12:25 PM [facility] Red Blood Cell 3.47(L) 4.58 - 5.54 x10(6)/mc L 06/16/2024 12:25 PM [facility] Hemoglobin 10.5(L) 13.7 - 16.5 g/dL 06/16/2024 12:25 PM [facility] Hematocrit 33.1(L) 40.5 - 48.5 % 06/16/2024 12:25 PM [facility] Mean Cell Volume 95.4(H) 82.9 - 93.1 fL 06/16/2024 12:25 PM [facility] Mean Cell Hemoglobin 30.3 27.5 - 32.1 pg 06/16/2024 12:25 PM [facility] Mean Cell Hemoglobin Concentration 31.7(L) 32.0 - 35.7 g/dL 06/16/2024 12:25 PM [facility] Platelet 101(L) 145 - 357 x10(3)/mc L 06/16/2024 12:25 PM [facility] Mean Platelet Volume 10.6 7.6 - 12.9 fL 06/16/2024 12:25 PM [facility] RDW Standard Deviation 49.5(H) 36.0 - 45.0 fL 06/16/2024 12:25 PM [facility] RDW coefficient of variation 14.2(H) 11.4 - 13.8 % 06/16/2024 12:25 PM [facility] NRBC% auto 0.0 % 06/16/2024 12:25 PM [facility] NRBC Absolute <0.01 <0.01 x10(3)/mc L 06/16/2024 12:25 PM [facility] Blood VENOUS BLOOD SPECIMEN / Unknown Venipuncture / Unknown 06/16/2024:44 AM EST 06/16/2024 12:03 PM EST Bobby Loja MD HEMATOLOGY ORDERABLE S Performing Organization Address [facility] Co de Phone Number [facility] [place] [address] * Lactate, Whole Blood (06/16/2024 9:02 AM EST) Lactate, Whole Blood 1.8 0.5 - 2.2 mmol/L 06/16/2024 9:19 AM EST [facility] Blood VENOUS BLOOD SPECIMEN / Unknown Venipuncture / Unknown 06/16/2024 9:02 AM EST 06/16/2024 9:17 AM EST Bobby Loja MD CHEMISTRY ORDERABLES Performing Organization Address [facility] Phone Number [facility] [place] [address] * POC, GLUCOSE (06/16/2024 7:44 AM EST) Glucometer, POC 129 65 - 199 mg/dL 06/16/2024 7:44 AM EST [facility] Comment:Supplemental ranges: <140 mg/dL before meals <180 mg/dL all other times of the day. Blood CAPILLARY BLOOD / Unknown 06/16/2024 7:44 AM EST 06/16/2024 7:44 AM EST Bobby Loja MD POINT OF CARE TEST O RDERABLES Performing Organization Address [facility] Co de Phone Number [facility] [place] [address] * POC, GLUCOSE (06/16/2024 4:01 AM EST) Glucometer, POC 158 65 - 199 mg/dL 06/16/2024 4:01 AM EST [facility] Comment:Supplemental ranges: <140 mg/dL before meals <180 mg/dL all other times of the day. Blood CAPILLARY BLOOD / Unknown 06/16/2024 4:01 AM EST 06/16/2024 4:01 AM EST Bobby Loja MD POINT OF CARE TEST O RDERABLES [facility] [place] [place] [address] * (ABNORMAL) Basic Metabolic Panel (06/16/2024 2:23 AM EST) Glucose 177 65 - 199 mg/dL 06/16/2024 3:13 AM EST [facility] Comment:Glucose Concentratio n >=200 mg/dL plus symptoms is consistent with Diabetes Mellitus. Blood Urea Nitrogen 37(H) 10 - 20 mg/dL 06/16/2024 3:13 AM [facility] Creatinine 2.10(H) 0.80 - 1.50 mg/dL 06/16/2024 3:13 AM [facility] Sodium 132(L) 135 - 145 mMol/L 06/16/2024 3:13 AM [facility] Potassium 4.5 3.5 - 5.0 mMol/L 06/16/2024 3:13 AM [facility] Chloride 99 98 - 107 mMol/L 06/16/2024 3:13 AM [facility] Carbon Dioxide 22 22 - 31 mMol/L 06/16/2024 3:13 AM [facility] Anion Gap 11 5 - 15 mMol/L 06/16/2024 3:13 AM [facility] Calcium 9.0 8.5 - 10.5 mg/dL 06/16/2024 3:13 AM [facility] Est Glomerular Filtration Rate - Male 34 mL/min/1. 73 m?? 06/16/2024 3:13 AM [facility] Comment: This patient's [...] CHEMISTRY ORDERABLES Performing Organization Address [facility] Phone Number [facility] [place] [address] * POC, GLUCOSE (06/16/2024 2:21 AM EST) Glucometer, POC 176 65 - 199 mg/dL 06/16/2024 2:31 AM EST [facility] Comment:Supplemental ranges: <140 mg/dL before meals <180 mg/dL all other times of the day. Blood CAPILLARY BLOOD / Unknown 06/16/2024 2:21 AM EST 06/16/2024 2:31 AM EST Bobby Loja MD POINT OF CARE TEST O RDERABLES Performing Organization Address [facility] de Phone Number [facility] [place] [place] [address] * (ABNORMAL) POC, GLUCOSE (06/16/2024 12:09 AM EST) Glucometer, POC 222(H) 65 - 199 mg/dL 06/16/2024 12:09 AM EST [facility] Comment:Supplemental ranges: <140 mg/dL before meals <180 mg/dL all other times of the day. Blood CAPILLARY BLOOD / Unknown 06/16/2024 12:09 AM EST 06/16/2024 12:09 AM EST Bobby Loja MD POINT OF CARE TEST O RDBECKIE Performing Organization Address City/[facility] Co de Phone Number [facility] [place] [address] * (ABNORMAL) POC, GLUCOSE (06/15/2024 10:07 PM EST) Glucometer, POC 320(H) 65 - 199 mg/dL 06/15/2024 10:07 PM EST [facility] Comment:Supplemental ranges: <140 mg/dL before meals <180 mg/dL all other times of the day. Blood CAPILLARY BLOOD / Unknown 06/15/2024 10:07 PM EST 06/15/2024 10:07 PM EST Bobby Loja MD POINT OF CARE TEST O NIKA Performing Organization Address City/[facility] Co de Phone Number [facility] [place] [address] * (ABNORMAL) POC, GLUCOSE (06/15/2024 7:56 PM EST) Glucometer, POC 304(H) 65 - 199 mg/dL 06/15/2024 7:56 PM EST [facility] Comment:Supplemental ranges: <140 mg/dL before meals <180 mg/dL all other times of the day. Blood CAPILLARY BLOOD / Unknown 06/15/2024 7:56 PM EST 06/15/2024 7:56 PM EST Bobby Loja MD POINT OF CARE TEST O NIKA [facility] [place] [address] * (ABNORMAL) POC, GLUCOSE (06/15/2024 7:52 PM EST) Glucometer, POC 288(H) 65 - 199 mg/dL 06/15/2024 7:52 PM EST [facility] Comment:Supplemental ranges: <140 mg/dL before meals <180 mg/dL all other times of the day. Blood CAPILLARY BLOOD / Unknown 06/15/2024 7:52 PM EST 06/15/2024 7:52 PM EST Bobby Loja MD POINT OF CARE TEST O NIKA Performing Organization Address [facility] Co de Phone Number [facility] [place] [address] * POC, GLUCOSE (06/15/2024 4:21 PM EST) Glucometer, POC 192 65 - 199 mg/dL 06/15/2024 4:21 PM EST [facility] Comment:Supplemental ranges: <140 mg/dL before meals <180 mg/dL all other times of the day. Blood CAPILLARY BLOOD / Unknown 06/15/2024 4:21 PM EST 06/15/2024 4:21 PM EST Bobby Loja MD POINT OF CARE TEST Abiamel MAHER Performing Organization Address [facility] de Phone Number [facility] [place] [address] * POC, GLUCOSE (06/15/2024 3:27 PM EST) Glucometer, POC 155 65 - 199 mg/dL 06/15/2024 3:27 PM EST [facility] Comment:Supplemental ranges: <140 mg/dL before meals <180 mg/dL all other times of the day. Blood CAPILLARY BLOOD / Unknown 06/15/2024 3:27 PM EST 06/15/2024 3:27 PM EST Bobby Loja MD POINT OF CARE TEST O NIKA Performing Organization Address [facility] Co de Phone Number [facility] [place] [place] [address] * POC, GLUCOSE (06/15/2024 2:23 PM EST) Glucometer, POC 160 65 - 199 mg/dL 06/15/2024 2:23 PM EST [facility] Comment:Supplemental ranges: <140 mg/dL before meals <180 mg/dL all other times of the day. Blood CAPILLARY BLOOD / Unknown 06/15/2024 2:23 PM EST 06/15/2024 2:23 PM EST Narrative Authorizing Provider Result Saranya Loja MD POINT OF CARE TEST O NIKA Performing Organization Address [facility]/ZIP Co de Phone Number [facility] [place] [address] * POC, GLUCOSE (06/15/2024 1:26 PM EST) Glucometer, POC 167 65 - 199 mg/dL 06/15/2024 1:26 PM EST [facility] Comment:Supplemental ranges: <140 mg/dL before meals <180 mg/dL all other times of the day. Blood CAPILLARY BLOOD / Unknown 06/15/2024 1:26 PM EST 06/15/2024 1:26 PM EST Narrative Authorizing Provider Result Saranya Loja MD POINT OF CARE TEST Abimael MAHER Performing Organization Address [facility] Co de Phone Number [facility] [place] [address] * (ABNORMAL) POC, GLUCOSE (06/15/2024 12:55 PM EST) Glucometer, POC 210(H) 65 - 199 mg/dL 06/15/2024 12:55 PM EST [facility] Comment:Supplemental ranges: <140 mg/dL before meals <180 mg/dL all other times of the day. Blood CAPILLARY BLOOD / Unknown 06/15/2024 12:55 PM EST 06/15/2024 12:55 PM EST Narrative Authorizing Provider Result Saranya Loja MD POINT OF CARE TEST O NIKA Performing Organization Address City/[facility] Co de Phone Number [facility] [place] [address] * (ABNORMAL) POC, GLUCOSE (06/15/2024 11:29 AM EST) Glucometer, POC 220(H) 65 - 199 mg/dL 06/15/2024 11:29 AM [facility] Comment:Supplemental ranges: <140 mg/dL before meals <180 mg/dL all other times of the day. Blood CAPILLARY BLOOD / Unknown 06/15/2024 11:29 AM EST 06/15/2024 11:29 AM EST Bobby Loja MD POINT OF CARE TEST O NIKA [facility] [place] [address] * (ABNORMAL) Basic Metabolic Panel (06/15/2024 11:23 AM EST) Glucose 215(H) 65 - 199 mg/dL 06/15/2024 12:08 PM [facility] Comment:Glucose Concentratio n >=200 mg/dL plus symptoms is consistent with Diabetes Mellitus. Blood Urea Nitrogen 24(H) 10 - 20 mg/dL 06/15/2024 12:08 PM [facility] Creatinine 1.54(H) 0.80 - 1.50 mg/dL 06/15/2024 12:08 PM [facility] Sodium 135 135 - 145 mMol/L 06/15/2024 12:08 PM [facility] Potassium 4.5 3.5 - 5.0 mMol/L 06/15/2024 12:08 PM [facility] Chloride 105 98 - 107 mMol/L 06/15/2024 12:08 PM [facility] Carbon Dioxide 19(L) 22 - 31 mMol/L 06/15/2024 12:08 PM [facility] Anion Gap 11 5 - 15 mMol/L 06/15/2024 12:08 PM [facility] Calcium 8.3(L) 8.5 - 10.5 mg/dL 06/15/2024 12:08 PM [facility] Est Glomerular Filtration Rate - Male 49 mL/min/1. 73 m?? 06/15/2024 12:08 PM [facility] Comment: This patient's [...] CHEMISTRY ORDERABLES Performing Organization Address [facility] Co de Phone Number [facility] [place] [place] [address] * POC, GLUCOSE (06/15/2024 10:29 AM EST) Glucometer, POC 189 65 - 199 mg/dL 06/15/2024 10:29 AM EST [facility] Comment:Supplemental ranges: <140 mg/dL before meals <180 mg/dL all other times of the day. Blood CAPILLARY BLOOD / Unknown 06/15/2024 10:29 AM EST 06/15/2024 10:29 AM EST Bobby Loja MD POINT OF CARE TEST O RDERABLES [facility] [place] [place] [address] * POC, GLUCOSE (06/15/2024 9:45 AM EST) Glucometer, POC 178 65 - 199 mg/dL 06/15/2024 9:45 AM EST [facility] Comment:Supplemental ranges: <140 mg/dL before meals <180 mg/dL all other times of the day. Blood CAPILLARY BLOOD / Unknown 06/15/2024 9:45 AM EST 06/15/2024 9:45 AM EST Bobby Loja MD POINT OF CARE TEST O RDERAPIETER [facility] [place] [address] * (ABNORMAL) Cooximetry, POC (06/15/2024 9:31 AM EST) pO2, Coox 38 mmHg 06/15/2024 9:34 AM [facility] Hemoglobin, Coox 12.9(L) 13.7 - 16.5 g/dL 06/15/2024 9:34 AM [facility] Oxyhemoglobin, Coox 72.1 % 06/15/2024 9:34 AM [facility] Carboxyhemoglo bin, Coox 0.9 % 06/15/2024 9:34 AM EST [facility] Comment: Nonsmokers: 0.5-1.5% COHB ?? Smokers: Variable ??but usually less than 10% ?? Toxic: 20-30% COHB ?? Lethal: Greater than 60% COHB Methemoglobin, Coox 0.3 <=1.5 % 06/15/2024 9:34 AM EST [facility] Blood (Mixed Venous) 06/15/2024 9:31 AM EST 06/15/2024 9:34 AM EST Bobby Loja MD POINT OF CARE TEST O NIKA [facility] [place] [place] [address] * Cooximetry, POC (06/15/2024 9:22 AM EST) pO2, Coox 30 mmHg 06/15/2024 9:25 AM EST [facility] Hemoglobin, Coox 06/15/2024 9:25 AM EST [facility] Comment:QUES Oxyhemoglobin, Coox 06/15/2024 9:25 AM [facility] Comment:QUES Carboxyhemoglo bin, Coox 06/15/2024 9:25 AM [facility] Comment:QUES Methemoglobin, Coox 06/15/2024 9:25 AM [facility] Comment:QUES Blood (Mixed Venous) 06/15/2024 9:22 AM EST 06/15/2024 9:25 AM EST Bobby Loja MD POINT OF CARE TEST O RDERABLES [facility] [place] [place] [address] * (ABNORMAL) Blood Gas, Arterial POC (06/15/2024 [...] 3.5 - 5.0 mmol/L 06/15/2024 9:21 AM [facility] Chloride, Arterial 106 98 - 107 mmol/L 06/15/2024 9:21 AM [facility] Lactate, Arterial 1.7 0.5 - 2.2 mmol/L 06/15/2024 9:21 AM [facility] Flow Rate 2.0 L/min 06/15/2024 9:21 AM [facility] IONIZED CALCIUM, ARTERIAL 1.14(L) 1.15 - 1.33 mmol/L 06/15/2024 9:21 AM [facility] Glucose, Arterial 193 65 - 199 mg/dL 06/15/2024 9:21 AM [facility] Comment:Glucose Concentratio n >=200 mg/dL plus symptoms is consistent with Diabetes Mellitus. Blood ARTERIAL BLOOD / Unknown 06/15/2024 9:19 AM EST 06/15/2024 9:20 AM EST Bobby Loja MD POINT OF CARE TEST O RDERABLES [facility] [place] [place] [address] * (ABNORMAL) POC, GLUCOSE (06/15/2024 8:37 AM EST) Glucometer, POC 204(H) 65 - 199 mg/dL 06/15/2024 8:37 AM [facility] Comment:Supplemental ranges: <140 mg/dL before meals <180 mg/dL all other times of the day. Blood CAPILLARY BLOOD / Unknown 06/15/2024 8:37 AM EST 06/15/2024 8:37 AM EST Bobby Loja MD POINT OF CARE TEST O NIKA Performing Organization Address [facility] de Phone Number [facility] [place] [address] * POC, GLUCOSE (06/15/2024 7:37 AM EST) Glucometer, POC 199 65 - 199 mg/dL 06/15/2024 7:37 AM EST [facility] Comment:Supplemental ranges: <140 mg/dL before meals <180 mg/dL all other times of the day. Blood CAPILLARY BLOOD / Unknown 06/15/2024 7:37 AM EST 06/15/2024 7:38 AM EST Bobby Loja MD POINT OF CARE TEST O NIKA Performing Organization Address [facility] de Phone Number [facility] [place] [address] * (ABNORMAL) POC, GLUCOSE (06/15/2024 7:01 AM EST) Glucometer, POC 203(H) 65 - 199 mg/dL 06/15/2024 7:01 AM EST [facility] Comment:Supplemental ranges: <140 mg/dL before meals <180 mg/dL all other times of the day. Blood CAPILLARY BLOOD / Unknown 06/15/2024 7:01 AM EST 06/15/2024 7:01 AM EST Bobby Loja MD POINT OF CARE TEST O NIKA Performing Organization Address [facility] Co de Phone Number [facility] [place] [address] * XR Chest One View (06/15/2024 6:31 AM EST) WORKSTATION ID [id number] RAD Anatomical Region Laterality Modality Chest N/A [...] have questions please contact the health career advisor that requested your imaging first. ? Electronically signed by: Stuart Aponte MD, [facility] ??([phone]), at 06/15/2024 10:38 AM Narrative 06/15/2024 10:38 [...] who have questions please contactthe health career advisor that requested your imaging first. Bobby Loja MD IMG DX ORDERABLES * POC, GLUCOSE (06/15/2024 6:02 AM EST) Glucometer, POC 179 65 - 199 mg/dL 06/15/2024 6:02 AM EST [facility] Comment:Supplemental ranges: <140 mg/dL before meals <180 mg/dL all other times of the day. Blood CAPILLARY BLOOD / Unknown 06/15/2024 6:02 AM EST 06/15/2024 6:02 AM EST Bobby Loja MD POINT OF CARE TEST O NIKA Performing Organization Address [facility] Co de Phone Number [facility] [place] [address] * POC, GLUCOSE (06/15/2024 5:06 AM EST) Glucometer, POC 160 65 - 199 mg/dL 06/15/2024 5:06 AM EST [facility] Comment:Supplemental ranges: <140 mg/dL before meals <180 mg/dL all other times of the day. Blood CAPILLARY BLOOD / Unknown 06/15/2024 5:06 AM EST 06/15/2024 5:06 AM EST Bobby Loja MD POINT OF CARE TEST O NIKA Performing Organization Address City/[facility] Co de Phone Number [facility] [place] [address] * POC, GLUCOSE (06/15/2024 4:05 AM EST) Glucometer, POC 160 65 - 199 mg/dL 06/15/2024 4:06 AM EST [facility] Comment:Supplemental ranges: <140 mg/dL before meals <180 mg/dL all other times of the day. Blood CAPILLARY BLOOD / Unknown 06/15/2024 4:05 AM EST 06/15/2024 4:06 AM EST Bobby Loja MD POINT OF CARE TEST O NIKA Performing Organization Address [facility] Co de Phone Number [facility] [place] [address] * POC, GLUCOSE (06/15/2024 3:07 AM EST) Glucometer, POC 151 65 - 199 mg/dL 06/15/2024 3:07 AM [facility] Comment:Supplemental ranges: <140 mg/dL before meals <180 mg/dL all other times of the day. Blood CAPILLARY BLOOD / Unknown 06/15/2024 3:07 AM EST 06/15/2024 3:07 AM EST Bobby Loja MD POINT OF CARE TEST O NIKA Performing Organization Address [facility] Co de Phone Number [facility] [place] [address] * (ABNORMAL) Basic Metabolic Panel (06/15/2024 1:48 AM EST) Glucose 140 65 - 199 mg/dL 06/15/2024 2:38 AM [facility] Comment:Glucose Concentratio n >=200 mg/dL plus symptoms is consistent with Diabetes Mellitus. Blood Urea Nitrogen 21(H) 10 - 20 mg/dL 06/15/2024 2:38 AM [facility] Creatinine 1.27 0.80 - 1.50 mg/dL 06/15/2024 2:38 AM [facility] Sodium 140 135 - 145 mMol/L 06/15/2024 2:38 AM [facility] Potassium 4.4 3.5 - 5.0 mMol/L 06/15/2024 2:38 AM [facility] Chloride 108(H) 98 - 107 mMol/L 06/15/2024 2:38 AM EST [facility] Carbon Dioxide 23 22 - 31 mMol/L 06/15/2024 2:38 AM [facility] Anion Gap 9 5 - 15 mMol/L 06/15/2024 2:38 AM [facility] Calcium 8.3(L) 8.5 - 10.5 mg/dL 06/15/2024 2:38 AM [facility] Est Glomerular Filtration Rate - Male 62 mL/min/1. 73 m?? 06/15/2024 2:38 AM [facility] Comment: This patient's [...] AM EST Bobby Loja MD CHEMISTRY ORDERABLES [facility] [place] [address] * (ABNORMAL) CBC (with Diff) (06/15/2024 1:48 AM EST) White Blood Cell 11.71(H) 4.00 - 9.50 x10(3)/mc L 06/15/2024 2:13 AM EST [facility] Red Blood Cell 4.14(L) 4.58 - 5.54 x10(6)/mc L 06/15/2024 2:13 AM EST [facility] Hemoglobin 12.5(L) 13.7 - [...] 3.20 x10(3)/mc L 06/15/2024 2:13 AM EST [facility] Monocyte % 11.4 % 06/15/2024 2:13 AM EST [facility] Monocyte Absolute 1.33(H) 0.30 - 0.90 x10(3)/mc L 06/15/2024 2:13 AM EST [facility] Eos % 0.2 % 06/15/2024 2:13 AM EST [facility] Eos Absolute <0.04 0.00 - 0.40 x10(3)/mc L 06/15/2024 2:13 AM EST [facility] Basophil % 0.2 % 06/15/2024 2:13 AM EST [facility] Baso Absolute <0.04 0.00 - 0.10 x10(3)/mc L 06/15/2024 2:13 AM EST [facility] Immature Gran % 0.5 % 2:13 AM [facility] Immature Gran Absolute 0.06(H) 0.00 - 0.04 x10(3)/mc L 06/15/2024 2:13 AM EST [facility] Blood VENOUS BLOOD SPECIMEN / Unknown Venipuncture / Unknown 06/15/2024 1:48 AM EST 06/15/2024 1:52 AM EST Bobby Loja MD HEMATOLOGY ORDERABLE S Performing Organization Address City/State/[facility] Co de Phone Number [facility] [place] [address] * (ABNORMAL) Troponin - Single (06/15/2024 1:48 AM EST) Troponin-T, High Sensitivity 667(H) <=22 ng/L 06/15/2024 2:22 AM EST [facility] Comment: This patient's troponin [...] [facility] Test Catalog Troponin - https://one-.testcatalog.org/catalogs/565/files/92971 Reference: Fourth [place] Definition of Myocardial Infarction. Journal of the [employer] 2018;72:2378-6328 Blood VENOUS BLOOD SPECIMEN / Unknown Venipuncture / Unknown 06/15/2024 1:48 AM EST 06/15/2024 1:52 AM EST Bobby Loja MD CHEMISTRY ORDERABLES [facility] [place] [address] * (ABNORMAL) Blood Gas, Arterial POC (06/15/2024 1:46 AM EST) pH, Arterial 7.33(L) 7.35 - 7.45 06/15/2024 1:47 AM EST [facility] PCO2, Arterial 40 35 - 45 mmHg 06/15/2024 1:47 AM EST [facility] PO2, Arterial 131(H) 85 - 104 mmHg 06/15/2024 1:47 AM EST [facility] Bicarbonate, Arterial 20.7 20.0 - 26.0 mmol/L 06/15/2024 1:47 AM EST [facility] Base Excess, Arterial -5.2(L) -3.0 - 3.0 mmol/L 06/15/2024 1:47 AM EST [facility] Hemoglobin, Arterial 13.4(L) 13.7 - 16.5 g/dL 06/15/2024 1:47 AM [facility] Oxyhemoglobin, Arterial 97.9(H) 94.0 - 97.0 % 06/15/2024 1:47 AM [facility] Carboxyhemoglobin , Arterial 0.5 % 06/15/2024 1:47 AM [facility] Comment: Nonsmokers: 0.5-1.5% COHB ?? Smokers: Variable ??but usually less than 10% ?? Toxic: 20-30% COHB ?? Lethal: Greater than 60% COHB Methemoglobin, Arterial 0.3 <=1.5 % 06/15/2024 1:47 AM [facility] Sodium, Arterial 139 135 - 145 mmol/L 06/15/2024 1:47 AM [facility] Potassium, Arterial 4.2 3.5 - 5.0 mmol/L 06/15/2024 1:47 AM [facility] Chloride, Arterial 107 98 - 107 mmol/L 06/15/2024 1:47 AM [facility] Lactate, Arterial 1.8 0.5 - 2.2 mmol/L 06/15/2024 1:47 AM [facility] Fraction of Inspired Oxygen 40 % 06/15/2024 1:47 AM [facility] PF Ratio 328 Ratio 06/15/2024 1:47 AM [facility] Comment:PF ratio calculated using the non-temperature corrected pO2 result. IONIZED CALCIUM, ARTERIAL 1.17 1.15 - 1.33 mmol/L 06/15/2024 1:47 AM [facility] Glucose, Arterial 127 65 - 199 mg/dL 06/15/2024 1:47 AM [facility] Comment:Glucose Concentratio n >=200 mg/dL plus symptoms is consistent with Diabetes Mellitus. Blood ARTERIAL BLOOD / Unknown 06/15/2024 1:46 AM EST 06/15/2024 1:47 AM EST Bobby Loja MD POINT OF CARE TEST O RDERABLES Performing Organization Address City/[facility]/ZIP Co de Phone Number [facility] [place] [address] * POC, GLUCOSE (06/15/2024 1:05 AM EST) Glucometer, POC 116 65 - 199 mg/dL 06/15/2024 1:05 AM EST [facility] Comment:Supplemental ranges: <140 mg/dL before meals <180 mg/dL all other times of the day. Blood CAPILLARY BLOOD / Unknown 06/15/2024 1:05 AM EST 06/15/2024 1:05 AM EST Bobby Loja MD POINT OF CARE TEST O NIKA Performing Organization Address [facility] Co de Phone Number [facility] [place] [address] * POC, GLUCOSE (06/15/2024 12:16 AM EST) Glucometer, POC 135 65 - 199 mg/dL 06/15/2024 12:16 AM EST [facility] Comment:Supplemental ranges: <140 mg/dL before meals <180 mg/dL all other times of the day. Blood CAPILLARY BLOOD / Unknown 06/15/2024 12:16 AM EST 06/15/2024 12:16 AM EST Bobby Loja MD POINT OF CARE TEST O NIKA [facility] [place] [place] [address] * Potassium (06/14/2024 11:28 PM EST) Potassium 4.1 3.5 - 5.0 mMol/L 06/14/2024 11:54 PM EST [facility] Blood VENOUS BLOOD SPECIMEN / Unknown Venipuncture / Unknown 06/14/2024 11:28 PM EST 06/14/2024 11:34 PM EST Bobby Loja MD CHEMISTRY ORDERABLES Performing Organization Address City/[facility] Co de Phone Number [facility] [place] [address] * POC, GLUCOSE (06/14/2024 10:58 PM EST) Glucometer, POC 126 65 - 199 mg/dL 06/14/2024 10:59 PM EST [facility] Comment:Supplemental ranges: <140 mg/dL before meals <180 mg/dL all other times of the day. Blood CAPILLARY BLOOD / Unknown 06/14/2024 10:58 PM EST 06/14/2024 10:59 PM EST Bobby Loja MD POINT OF CARE TEST O RDERABLES Performing Organization Address [facility] Co de Phone Number [facility] [place] [address] * POC, GLUCOSE (06/14/2024 9:55 PM EST) Glucometer, POC 152 65 - 199 mg/dL 06/14/2024 9:56 PM EST [facility] Comment:Supplemental ranges: <140 mg/dL before meals <180 mg/dL all other times of the day. Blood CAPILLARY BLOOD / Unknown 06/14/2024 9:55 PM EST 06/14/2024 9:56 PM EST Bobby Loja MD POINT OF CARE TEST O NIKA Performing Organization Address City/[facility]/ZIP Co de Phone Number [facility] [place] [address] * POC, GLUCOSE (06/14/2024 8:54 PM EST) Glucometer, POC 151 65 - 199 mg/dL 06/14/2024 8:54 PM EST [facility] Comment:Supplemental ranges: <140 mg/dL before meals <180 mg/dL all other times of the day. Blood CAPILLARY BLOOD / Unknown 06/14/2024 8:54 PM EST 06/14/2024 8:54 PM EST Bobby Loja MD POINT OF CARE TEST O NIKA Performing Organization Address [facility] Co de Phone Number [facility] [place] [place] [address] * POC, GLUCOSE (06/14/2024 7:51 PM EST) Glucometer, POC 169 65 - 199 mg/dL 06/14/2024 7:52 PM EST [facility] Comment:Supplemental ranges: <140 mg/dL before meals <180 mg/dL all other times of the day. Blood CAPILLARY BLOOD / Unknown 06/14/2024 7:51 PM EST 06/14/2024 7:52 PM EST Bobby Loja MD POINT OF CARE TEST O NIKA Performing Organization Address [facility] Co de Phone Number [facility] [place] [place] [address] * POC, GLUCOSE (06/14/2024 6:49 PM EST) Glucometer, POC 194 65 - 199 mg/dL 06/14/2024 6:50 PM EST [facility] Comment:Supplemental ranges: <140 mg/dL before meals <180 mg/dL all other times of the day. Blood CAPILLARY BLOOD / Unknown 06/14/2024 6:49 PM EST 06/14/2024 6:50 PM EST Bobby Loja MD POINT OF CARE TEST O NIKA Performing Organization Address [facility] Co de Phone Number [facility] [place] [place] [address] * (ABNORMAL) Hemoglobin (06/14/2024 6:19 PM EST) Hemoglobin 13.1(L) 13.7 - 16.5 g/dL 06/14/2024 7:08 PM EST [facility] Blood VENOUS BLOOD SPECIMEN / Unknown Venipuncture / Unknown 06/14/2024 6:19 PM EST 06/14/2024 6:28 PM EST Bobby Loja MD HEMATOLOGY ORDERABLE S Performing Organization Address [facility]/ZIP Co de Phone Number [facility] [place] [place] [address] * Potassium (06/14/2024 6:19 PM EST) Potassium 3.9 3.5 - 5.0 mMol/L 06/14/2024 6:52 PM EST [facility] Blood VENOUS BLOOD SPECIMEN / Unknown Venipuncture / Unknown 06/14/2024 6:19 PM EST 06/14/2024 6:28 PM EST Bobby Loja MD CHEMISTRY ORDERABLES Performing Organization Address [facility] Co de Phone Number [facility] [place] [address] * (ABNORMAL) POC, GLUCOSE (06/14/2024 6:03 PM EST) Glucometer, POC 201(H) 65 - 199 mg/dL 06/14/2024 6:03 PM EST [facility] Comment:Supplemental ranges: <140 mg/dL before meals <180 mg/dL all other times of the day. Blood CAPILLARY BLOOD / Unknown 06/14/2024 6:03 PM EST 06/14/2024 6:03 PM EST Bobby Loja MD POINT OF CARE TEST O RDERABLES Performing Organization Address [facility] Co de Phone Number [facility] [place] [address] * (ABNORMAL) Blood Gas, Arterial POC (06/14/2024 4:51 PM EST) pH, Arterial 7.32(L) 7.35 - 7.45 06/14/2024 4:52 PM [facility] PCO2, Arterial 46(H) 35 - 45 mmHg 06/14/2024 4:52 PM [facility] PO2, Arterial 85 85 - 104 mmHg 06/14/2024 4:52 PM [facility] Bicarbonate, Arterial 23.1 20.0 - 26.0 mmol/L 06/14/2024 4:52 PM [facility] Base Excess, Arterial -3.1(L) -3.0 - 3.0 mmol/L 06/14/2024 4:52 PM [facility] Hemoglobin, Arterial 14.3 13.7 - 16.5 g/dL 06/14/2024 4:52 PM [facility] Oxyhemoglobin, Arterial 94.7 94.0 - 97.0 % 06/14/2024 4:52 PM [facility] Carboxyhemoglobin , Arterial 0.6 % 06/14/2024 4:52 PM [facility] Comment: Nonsmokers: 0.5-1.5% COHB ?? Smokers: Variable ??but usually less than 10% ?? Toxic: 20-30% COHB ?? Lethal: Greater than 60% COHB Methemoglobin, Arterial 0.0 <=1.5 % 06/14/2024 4:52 PM [facility] Sodium, Arterial 138 135 - 145 mmol/L 06/14/2024 4:52 PM [facility] Potassium, Arterial 4.1 3.5 - 5.0 mmol/L 06/14/2024 4:52 PM [facility] Chloride, Arterial 106 98 - 107 mmol/L 06/14/2024 4:52 PM [facility] Lactate, Arterial 1.3 0.5 - 2.2 mmol/L 06/14/2024 4:52 PM [facility] Fraction of Inspired Oxygen 40 % 06/14/2024 4:52 PM [facility] PF Ratio 213 Ratio 06/14/2024 4:52 PM [facility] Comment:PF ratio calculated using the non-temperature corrected pO2 result. IONIZED CALCIUM, ARTERIAL 1.16 1.15 - 1.33 mmol/L 06/14/2024 4:52 PM EST [facility] Glucose, Arterial 192 65 - 199 mg/dL 06/14/2024 4:52 PM EST [facility] Comment:Glucose Concentratio n >=200 mg/dL plus symptoms is consistent with Diabetes Mellitus. Blood ARTERIAL BLOOD / Unknown 06/14/2024 4:51 PM EST 06/14/2024 4:52 PM EST Bobby Loja MD POINT OF CARE TEST O NIKA Performing Organization Address [facility] Co de Phone Number [facility] [place] [place] [address] * POC, GLUCOSE (06/14/2024 4:00 PM EST) Glucometer, POC 184 65 - 199 mg/dL 06/14/2024 4:01 PM EST [facility] Comment:Supplemental ranges: <140 mg/dL before meals <180 mg/dL all other times of the day. Blood CAPILLARY BLOOD / Unknown 06/14/2024 4:00 PM EST 06/14/2024 4:01 PM EST Bobby Loja MD POINT OF CARE TEST O NIKA Performing Organization Address City/[facility] Co de Phone Number [facility] [place] [address] * XR Chest One View (06/14/2024 3:05 PM EST) WORKSTATION ID [id number] DH RAD Anatomical Region Laterality Modality Chest [...] have questions please contact the health career advisor that requested your imaging first. ? Electronically signed by: Stuart Aponte MD, [facility] ??([phone]), at 06/14/2024 4:07 PM Narrative 06/14/2024 4:07 [...] who have questions please contactthe health career advisor that requested your imaging first. Bobby Loja MD IMG DX ORDERABLES * (ABNORMAL) Blood Gas, Arterial POC (06/14/2024 2:52 PM EST) pH, Arterial 7.28(LLL) 7.35 - 7.45 06/14/2024 2:53 PM [facility] PCO2, Arterial 50(H) 35 - 45 mmHg 06/14/2024 2:53 PM [facility] PO2, Arterial 510(H) 85 - 104 mmHg 06/14/2024 2:53 PM [facility] Bicarbonate, Arterial 22.8 20.0 - 26.0 mmol/L 06/14/2024 2:53 PM [facility] Base Excess, Arterial -4.0(L) -3.0 - 3.0 mmol/L 06/14/2024 2:53 PM [facility] Hemoglobin, Arterial 13.8 13.7 - 16.5 g/dL 06/14/2024 2:53 PM [facility] Oxyhemoglobin, Arterial 99.3(H) 94.0 - 97.0 % 06/14/2024 2:53 PM [facility] Carboxyhemoglobin , Arterial 0.6 % 06/14/2024 2:53 PM [facility] Comment: Nonsmokers: 0.5-1.5% COHB ?? Smokers: Variable ??but usually less than 10% ?? Toxic: 20-30% COHB ?? Lethal: Greater than 60% COHB Methemoglobin, Arterial 0.1 <=1.5 % 06/14/2024 2:53 PM EST [facility] Sodium, Arterial 138 135 - 145 mmol/L 06/14/2024 2:53 PM EST [facility] Potassium, Arterial 4.2 3.5 - 5.0 mmol/L 06/14/2024 2:53 PM EST [facility] Chloride, Arterial 106 98 - 107 mmol/L 06/14/2024 2:53 PM [facility] Lactate, Arterial 1.1 0.5 - 2.2 mmol/L 06/14/2024 2:53 PM [facility] Fraction of Inspired Oxygen 100 % 06/14/2024 2:53 PM EST [facility] PF Ratio 510 Ratio 06/14/2024 2:53 PM EST [facility] Comment:PF ratio calculated using the non-temperature corrected pO2 result. IONIZED CALCIUM, ARTERIAL 1.15 1.15 - 1.33 mmol/L 06/14/2024 2:53 PM [facility] Glucose, Arterial 169 65 - 199 mg/dL 06/14/2024 2:53 PM EST [facility] Comment:Glucose Concentratio n >=200 mg/dL plus symptoms is consistent with Diabetes Mellitus. Blood ARTERIAL BLOOD / Unknown 06/14/2024 2:52 PM EST 06/14/2024 2:53 PM EST Bobby Loja MD POINT OF CARE TEST O RDERABLES [facility] [place] [address] * EKG 12 Lead (06/14/2024 2:46 PM EST) Ventricular rate 80 BPM MUSE SYSTEM Atrial Rate 80 BPM MUSE SYSTEM P-R Interval 120 ms MUSE SYSTEM QRS Duration 108 ms MUSE SYSTEM Q-T Interval 454 ms MUSE SYSTEM QTC Calculated (Bezet) 523 ms MUSE SYSTEM Calculated P [place] 70 degrees MUSE SYSTEM Calculated R [place] 56 degrees MUSE SYSTEM Calculated T [place] 50 degrees MUSE SYSTEM INTERPRETATION AV dual-paced rhythm Abnormal ECG When compared with ECG of 03-JUN-2024 01:45, Vent. rate has increased BY ??17 BPM Confirmed by MD Marisol, Shaheen ([id number]) on 06/15/2024 1:57:23 PM MUSE SYSTEM 06/14/2024 2:46 PM EST 06/15/2024 1:57 PM EST Bobby Loja MD ECG ORDERABLES MUSE SYSTEM * Prepare RBC (06/14/2024 2:27 PM EST) Status Information Returned [facility] Product Identification RBC [facility] Unit Number [id number] [facility] Product Code [id number] [facility] Unit Blood Type OPOS [facility] Specimen Expiration Date [facility] Volulme 350 [facility] Issue Date / Time [facility] Status [facility] Returned [facility] Product Identification RBC [facility] Unit Number [id number] [facility] Product [facility] [id number] [facility] Unit Blood Type OPOS [facility] Specimen Expiration Date [facility] Volulme 350 [facility] Issue Date / Time [facility] Blood 06/14/2024 6:2 5 AM EST Haja Byrnes MD BLOOD BANK PRODUCT O RDERABLES [facility] [place] [address] * (ABNORMAL) Cooximetry, POC (06/14/2024 1:52 PM EST) pO2, Coox 58 mmHg 06/14/2024 1:55 PM [facility] Hemoglobin, Coox 12.6(L) 13.7 - 16.5 g/dL 06/14/2024 1:55 PM [facility] Oxyhemoglobin, Coox 85.5 % 06/14/2024 1:55 PM [facility] Carboxyhemoglo bin, Coox 0.3 % 06/14/2024 1:55 PM [facility] Comment: Nonsmokers: 0.5-1.5% COHB ?? Smokers: Variable ??but usually less than 10% ?? Toxic: 20-30% COHB ?? Lethal: Greater than 60% COHB Methemoglobin, Coox 0.6 <=1.5 % 06/14/2024 1:55 PM [facility] Blood (Mixed Venous) 06/14/2024 1:52 PM EST 06/14/2024 1:55 PM EST Haja Byrnes MD POINT OF CARE TEST O RDERABLES [facility] [place] [place] [address] * (ABNORMAL) Blood Gas, Arterial POC (06/14/2024 12:47 PM EST) pH, Arterial 7.33(L) 7.35 - 7.45 06/14/2024 12:48 PM [facility] PCO2, Arterial 46(H) 35 - 45 mmHg 06/14/2024 12:48 PM [facility] PO2, Arterial 358(H) 85 - 104 mmHg 06/14/2024 12:48 PM [facility] Bicarbonate, Arterial 23.8 20.0 - 26.0 mmol/L 06/14/2024 12:48 PM [facility] Base Excess, Arterial -2.1 -3.0 - 3.0 mmol/L 06/14/2024 12:48 PM EST [facility] Hemoglobin, Arterial 11.7(L) 13.7 - 16.5 g/dL 06/14/2024 12:48 PM [facility] Oxyhemoglobin, Arterial 98.7(H) 94.0 - 97.0 % 06/14/2024 12:48 PM [facility] Carboxyhemoglobin , Arterial 0.3 % 06/14/2024 12:48 PM [facility] Comment: Nonsmokers: 0.5-1.5% COHB ?? Smokers: Variable ??but usually less than 10% ?? Toxic: 20-30% COHB ?? Lethal: Greater than 60% COHB Methemoglobin, Arterial 0.5 <=1.5 % 06/14/2024 12:48 PM [facility] Sodium, Arterial 135 135 - 145 mmol/L 06/14/2024 12:48 PM [facility] Potassium, Arterial 5.0 3.5 - 5.0 mmol/L 06/14/2024 12:48 PM [facility] Chloride, Arterial 106 98 - 107 mmol/L 06/14/2024 12:48 PM [facility] Lactate, Arterial 1.4 0.5 - 2.2 mmol/L 06/14/2024 12:48 PM [facility] IONIZED CALCIUM, ARTERIAL 1.09(L) 1.15 - 1.33 mmol/L 06/14/2024 12:48 PM [facility] Glucose, Arterial 157 65 - 199 mg/dL 06/14/2024 12:48 PM [facility] Comment:Glucose Concentratio n >=200 mg/dL plus symptoms is consistent with Diabetes Mellitus. Blood ARTERIAL BLOOD / Unknown 06/14/2024 12:47 PM EST 06/14/2024 12:48 PM EST Haja Byrnes MD POINT OF CARE TEST O RDERABLES [facility] [place] [address] * (ABNORMAL) Cooximetry, POC (06/14/2024 12:42 PM EST) pO2, Coox 71 mmHg 06/14/2024 12:45 PM EST [facility] Hemoglobin, Coox 11.6(L) 13.7 - 16.5 g/dL 06/14/2024 12:45 PM EST [facility] Oxyhemoglobin, Coox 91.5 % 06/14/2024 12:45 PM EST [facility] Carboxyhemoglo bin, Coox 0.3 % 06/14/2024 12:45 PM EST [facility] Comment: Nonsmokers: 0.5-1.5% COHB ?? Smokers: Variable ??but usually less than 10% ?? Toxic: 20-30% COHB ?? Lethal: Greater than 60% COHB Methemoglobin, Coox 0.4 <=1.5 % 06/14/2024 12:45 PM EST [facility] Blood (Mixed Venous) 06/14/2024 12:42 PM EST 06/14/2024 12:45 PM EST Haja Byrnes MD POINT OF CARE TEST O RDERABLES [facility] [place] [address] * (ABNORMAL) Platelet count (06/14/2024 12:30 PM EST) Platelet 73(L) 145 - 357 x10(3)/mcL 06/14/2024 12:54 PM EST [facility] Blood ARTERIAL BLOOD / Unknown 06/14/2024 12:30 PM EST Comment:Pre-op diagnosis: CAD Bobby Loja MD HEMATOLOGY ORDERABLE S [facility] [place] [address] * (ABNORMAL) Hemoglobin and Hematocrit, blood (06/14/2024 12:30 PM EST) Hemoglobin 10.9(L) 13.7 - 16.5 g/dL 06/14/2024 12:54 PM EST [facility] Hematocrit 33.5(L) 40.5 - 48.5 % 06/14/2024 12:54 PM EST [facility] Comment:This result has been called to Danielle López by Satya Page on 06/14/2024 12:53:56, and has been read back. Blood ARTERIAL BLOOD / Unknown 06/14/2024 12:30 PM EST 06/14/2024 12:42 PM EST Comment:Pre-op diagnosis: CAD Bobby Loja MD HEMATOLOGY ORDERABLE S Performing Organization Address [facility] Co de Phone Number [facility] [place] [address] * APTT (06/14/2024 12:30 PM EST) Partial Thromboplastin Time 31 25 - 37 sec 06/14/2024 12:57 PM EST [facility] Comment: The PTT is NOT appropriate for heparin monitoring. Use the Anti-Xa level for heparin monitoring (HEP UFH) or LMWH monitoring (HEP LMW). A PTT less than 37 seconds generally indicates adequate hemostasis. Blood ARTERIAL BLOOD / Unknown 06/14/2024 12:30 PM EST 06/14/2024 12:42 PM EST Comment:Pre-op diagnosis: CAD Bobby Loja MD HEMATOLOGY ORDERABLE S Performing Organization Address City/[facility]/ZIP Co de Phone Number [facility] [place] [address] * (ABNORMAL) Prothrombin Time (06/14/2024 12:30 PM EST) Prothrombin Time 16.8(H) 9.4 - 12.5 sec 06/14/2024 12:57 PM EST [facility] International Normalization Ratio 1.5 <=4.9 06/14/2024 12:57 PM EST [facility] Comment: An INR < [...] ORDERABLE S Performing Organization Address [facility]/ZIP Co de Phone Number [facility] [place] [address] * Fibrinogen (06/14/2024 12:30 PM EST) Fibrinogen 211 200 - 393 mg/dL 06/14/2024 12:57 PM EST [facility] Comment: A fibrinogen level >100 mg/dL is adequate for hemostasis in most patients without underlying bleeding disorders. Blood ARTERIAL BLOOD / Unknown 06/14/2024 12:30 PM EST 06/14/2024 12:42 PM EST Comment:Pre-op diagnosis: CAD Bobby Loja MD HEMATOLOGY ORDERABLE S Performing Organization Address City/[facility] Co de Phone Number [facility] [place] [address] * (ABNORMAL) Blood Gas, Arterial POC (06/14/2024 12:15 PM EST) pH, Arterial 7.38 7.35 - 7.45 06/14/2024 12:16 PM EST [facility] PCO2, Arterial 40 35 - 45 mmHg 06/14/2024 12:16 PM [facility] Bicarbonate, Arterial 22.9 20.0 - 26.0 mmol/L 06/14/2024 12:16 PM EST [facility] Base Excess, Arterial -2.3 -3.0 - 3.0 mmol/L 06/14/2024 12:16 PM [facility] Hemoglobin, Arterial 11.4(L) 13.7 - 16.5 g/dL 06/14/2024 12:16 PM [facility] Oxyhemoglobin, Arterial 98.8(H) 94.0 - 97.0 % 06/14/2024 12:16 PM [facility] Carboxyhemoglobin , Arterial 0.3 % 06/14/2024 12:16 PM [facility] Comment: Nonsmokers: 0.5-1.5% COHB ?? Smokers: Variable ??but usually less than 10% ?? Toxic: 20-30% COHB ?? Lethal: Greater than 60% COHB Methemoglobin, Arterial 0.6 <=1.5 % 06/14/2024 12:16 PM [facility] Sodium, Arterial 134(L) 135 - 145 mmol/L 06/14/2024 12:16 PM [facility] Potassium, Arterial 5.4(H) 3.5 - 5.0 mmol/L 06/14/2024 12:16 PM [facility] Chloride, Arterial 105 98 - 107 mmol/L 06/14/2024 12:16 PM [facility] Lactate, Arterial 1.3 0.5 - 2.2 mmol/L 06/14/2024 12:16 PM [facility] IONIZED CALCIUM, ARTERIAL 1.08(L) 1.15 - 1.33 mmol/L 06/14/2024 12:16 PM [facility] Glucose, Arterial 161 65 - 199 mg/dL 06/14/2024 12:16 PM [facility] Comment:Glucose Concentratio n >=200 mg/dL plus symptoms is consistent with Diabetes Mellitus. Blood ARTERIAL BLOOD / Unknown 06/14/2024 12:15 PM EST 06/14/2024 12:16 PM EST Haja Byrnes MD POINT OF CARE TEST [facility] [address] * (ABNORMAL) Blood Gas, Arterial POC (06/14/2024 11:51 AM EST) pH, Arterial 7.40 7.35 - 7.45 06/14/2024 11:52 AM [facility] PCO2, Arterial 41 35 - 45 mmHg 06/14/2024 11:52 AM [facility] PO2, Arterial 332(H) 85 - 104 mmHg 06/14/2024 11:52 AM [facility] Bicarbonate, Arterial 24.7 20.0 - 26.0 mmol/L 06/14/2024 11:52 AM [facility] Base Excess, Arterial -0.1 -3.0 - 3.0 mmol/L 06/14/2024 11:52 AM [facility] Hemoglobin, Arterial 11.1(L) 13.7 - 16.5 g/dL 06/14/2024 11:52 AM [facility] Oxyhemoglobin, Arterial 98.7(H) 94.0 - 97.0 % 06/14/2024 11:52 AM [facility] Carboxyhemoglobin , Arterial 0.3 % 06/14/2024 11:52 AM [facility] Comment: Nonsmokers: 0.5-1.5% COHB ?? Smokers: Variable ??but usually less than 10% ?? Toxic: 20-30% COHB ?? Lethal: Greater than 60% COHB Methemoglobin, Arterial 0.4 <=1.5 % 06/14/2024 11:52 AM [facility] Sodium, Arterial 135 135 - 145 mmol/L 06/14/2024 11:52 AM [facility] Potassium, Arterial 5.7(H) 3.5 - 5.0 mmol/L 06/14/2024 11:52 AM [facility] Chloride, Arterial 105 98 - 107 mmol/L 06/14/2024 11:52 AM [facility] Lactate, Arterial 1.2 0.5 - 2.2 mmol/L 06/14/2024 11:52 AM EST [facility] IONIZED CALCIUM, ARTERIAL 1.10(L) 1.15 - 1.33 mmol/L 06/14/2024 11:52 AM [facility] Glucose, Arterial 148 65 - 199 mg/dL 06/14/2024 11:52 AM EST [facility] Comment:Glucose Concentratio n >=200 mg/dL plus symptoms is consistent with Diabetes Mellitus. Blood ARTERIAL BLOOD / Unknown 06/14/2024 11:51 AM EST 06/14/2024 11:52 AM EST Haja Byrnes MD POINT OF CARE TEST O RDERABLES [facility] [place] [address] * (ABNORMAL) Blood Gas, Arterial POC (06/14/2024 11:27 AM EST) pH, Arterial 7.38 7.35 - 7.45 06/14/2024 11:28 AM [facility] PCO2, Arterial 37 35 - 45 mmHg 06/14/2024 11:28 AM [facility] PO2, Arterial 348(H) 85 - 104 mmHg 06/14/2024 11:28 AM [facility] Bicarbonate, Arterial 21.1 20.0 - 26.0 mmol/L 06/14/2024 11:28 AM [facility] Base Excess, Arterial -4.1(L) -3.0 - 3.0 mmol/L 06/14/2024 11:28 AM [facility] Hemoglobin, Arterial 11.0(L) 13.7 - 16.5 g/dL 06/14/2024 11:28 AM [facility] Oxyhemoglobin, Arterial 98.7(H) 94.0 - 97.0 % 06/14/2024 11:28 AM [facility] Carboxyhemoglobin , Arterial 0.3 % 06/14/2024 11:28 AM [facility] Comment: Nonsmokers: 0.5-1.5% COHB ?? Smokers: Variable ??but usually less than 10% ?? Toxic: 20-30% COHB ?? Lethal: Greater than 60% COHB Methemoglobin, Arterial 0.4 <=1.5 % 06/14/2024 11:28 AM [facility] Sodium, Arterial 132(L) 135 - 145 mmol/L 06/14/2024 11:28 AM [facility] Potassium, Arterial 5.8(H) 3.5 - 5.0 mmol/L 06/14/2024 11:28 AM [facility] Chloride, Arterial 105 98 - 107 mmol/L 06/14/2024 11:28 AM [facility] Lactate, Arterial 1.1 0.5 - 2.2 mmol/L 06/14/2024 11:28 AM [facility] IONIZED CALCIUM, ARTERIAL 1.03(L) 1.15 - 1.33 mmol/L 06/14/2024 11:28 AM [facility] Glucose, Arterial 147 65 - 199 mg/dL 06/14/2024 11:28 AM [facility] Comment:Glucose Concentratio n >=200 mg/dL plus symptoms is consistent with Diabetes Mellitus. Blood ARTERIAL BLOOD / Unknown 06/14/2024 11:27 AM EST 06/14/2024 11:28 AM EST Haja Byrnes MD POINT OF CARE TEST O RDERABLES [facility] [place] [address] * (ABNORMAL) Scan, Peripheral Blood (06/14/2024 11:23 AM EST) RBC Morphology Abnormal 06/14/2024 11:59 AM [facility] Platelet Estimate Decreased(A) Normal 06/14/2024 11:59 AM [facility] Aretha cells 1-5 /HPF 06/14/2024 11:59 AM EST [facility] Blood ARTERIAL BLOOD / Unknown 06/14/2024 11:23 AM EST 06/14/2024 11:27 AM EST Bobby Loja MD HEMATOLOGY ORDERABLE S Performing Organization Address City/[facility]/ZIP Co de Phone Number [facility] [place] [place] [address] * (ABNORMAL) Platelet count (06/14/2024 11:23 AM EST) Platelet 86(L) 145 - 357 x10(3)/mcL 06/14/2024 11:59 AM EST [facility] Blood ARTERIAL BLOOD / Unknown 06/14/2024 11:23 AM EST Comment:Pre-op diagnosis: CAD Bobby Loja MD HEMATOLOGY ORDERABLE S Performing Organization Address [facility] Co de Phone Number [facility] [place] [address] * (ABNORMAL) Hemoglobin and Hematocrit, blood (06/14/2024 11:23 AM EST) Hemoglobin 9.8(L) 13.7 - 16.5 g/dL 06/14/2024 11:59 AM EST [facility] Comment:This result has been called to Danielle López by Satya Page on 06/14/2024 11:58:33. Hematocrit 30.5(L) 40.5 - 48.5 % 06/14/2024 11:59 AM EST [facility] Comment:This result has been called to Danielle López by Satya Page on 06/14/2024 11:58:40, and has been read back. Blood ARTERIAL BLOOD / Unknown 06/14/2024 11:23 AM EST 06/14/2024 11:27 AM EST Comment:Pre-op diagnosis: CAD Bobby Loja MD HEMATOLOGY ORDERABLE S [facility] [place] [place] [address] * (ABNORMAL) Blood Gas, Arterial POC (06/14/2024 10:58 AM EST) pH, Arterial 7.38 7.35 - 7.45 06/14/2024 10:59 AM [facility] PCO2, Arterial 43 35 - 45 mmHg 06/14/2024 10:59 AM [facility] PO2, Arterial 401(H) 85 - 104 mmHg 06/14/2024 10:59 AM [facility] Bicarbonate, Arterial 24.8 20.0 - 26.0 mmol/L 06/14/2024 10:59 AM [facility] Base Excess, Arterial -0.5 -3.0 - 3.0 mmol/L 06/14/2024 10:59 AM [facility] Hemoglobin, Arterial 11.9(L) 13.7 - 16.5 g/dL 06/14/2024 10:59 AM [facility] Oxyhemoglobin, Arterial 99.0(H) 94.0 - 97.0 % 06/14/2024 10:59 AM [facility] Carboxyhemoglobin , Arterial 0.3 % 06/14/2024 10:59 AM [facility] Comment: Nonsmokers: 0.5-1.5% COHB ?? Smokers: Variable ??but usually less than 10% ?? Toxic: 20-30% COHB ?? Lethal: Greater than 60% COHB Methemoglobin, Arterial 0.3 <=1.5 % 06/14/2024 10:59 AM [facility] Sodium, Arterial 128(L) 135 - 145 mmol/L 06/14/2024 10:59 AM [facility] Potassium, Arterial 6.6(HHH) 3.5 - 5.0 mmol/L 06/14/2024 10:59 AM [facility] Chloride, Arterial 99 98 - 107 mmol/L 06/14/2024 10:59 AM [facility] Lactate, Arterial 1.3 0.5 - 2.2 mmol/L 06/14/2024 10:59 AM [facility] IONIZED CALCIUM, ARTERIAL 1.00(L) 1.15 - 1.33 mmol/L 06/14/2024 10:59 AM [facility] Glucose, Arterial 155 65 - 199 mg/dL 06/14/2024 10:59 AM EST [facility] Comment:Glucose Concentratio n >=200 mg/dL plus symptoms is consistent with Diabetes Mellitus. Blood ARTERIAL BLOOD / Unknown 06/14/2024 10:58 AM EST 06/14/2024 10:59 AM EST Haja Byrnes MD POINT OF CARE TEST O RDERABLES [facility] [place] [address] * (ABNORMAL) Blood Gas, Arterial POC (06/14/2024 10:26 AM EST) pH, Arterial 7.29(LLL) 7.35 - 7.45 06/14/2024 10:27 AM [facility] PCO2, Arterial 43 35 - 45 mmHg 06/14/2024 10:27 AM [facility] PO2, Arterial 369(H) 85 - 104 mmHg 06/14/2024 10:27 AM [facility] Bicarbonate, Arterial 19.9(L) 20.0 - 26.0 mmol/L 06/14/2024 10:27 AM [facility] Base Excess, Arterial -6.7(L) -3.0 - 3.0 mmol/L 06/14/2024 10:27 AM [facility] Hemoglobin, Arterial 12.6(L) 13.7 - 16.5 g/dL 06/14/2024 10:27 AM [facility] Oxyhemoglobin, Arterial 99.1(H) 94.0 - 97.0 % 06/14/2024 10:27 AM [facility] Carboxyhemoglobin , Arterial 0.1 % 06/14/2024 10:27 AM [facility] Comment: Nonsmokers: 0.5-1.5% COHB ?? Smokers: Variable ??but usually less than 10% ?? Toxic: 20-30% COHB ?? Lethal: Greater than 60% COHB Methemoglobin, Arterial 0.4 <=1.5 % 06/14/2024 10:27 AM [facility] Sodium, Arterial 129(L) 135 - 145 mmol/L 06/14/2024 10:27 AM [facility] Potassium, Arterial 5.0 3.5 - 5.0 mmol/L 06/14/2024 10:27 AM [facility] Chloride, Arterial 99 98 - 107 mmol/L 06/14/2024 10:27 AM [facility] Lactate, Arterial 0.9 0.5 - 2.2 mmol/L 06/14/2024 10:27 AM [facility] IONIZED CALCIUM, ARTERIAL 1.05(L) 1.15 - 1.33 mmol/L 06/14/2024 10:27 AM [facility] Glucose, Arterial 149 65 - 199 mg/dL 06/14/2024 10:27 AM [facility] Comment:Glucose Concentratio n >=200 mg/dL plus symptoms is consistent with Diabetes Mellitus. Blood ARTERIAL BLOOD / Unknown 06/14/2024 10:26 AM EST 06/14/2024 10:27 AM EST Haja Byrnes MD POINT OF CARE TEST O RDERABLES [facility] [place] [place] [address] * (ABNORMAL) Blood Gas, Arterial POC (06/14/2024 10:25 AM EST) pH, Arterial 7.26(LLL) 7.35 - 7.45 06/14/2024 10:26 AM [facility] PCO2, Arterial 48(H) 35 - 45 mmHg 06/14/2024 10:26 AM [facility] Bicarbonate, Arterial 21.2 20.0 - 26.0 mmol/L 06/14/2024 10:26 AM [facility] Base Excess, Arterial -5.8(L) -3.0 - 3.0 mmol/L 06/14/2024 10:26 AM [facility] Hemoglobin, Arterial 12.5(L) 13.7 - 16.5 g/dL 06/14/2024 10:26 AM [facility] Oxyhemoglobin, Arterial 82.3(L) 94.0 - 97.0 % 06/14/2024 10:26 AM [facility] Carboxyhemoglobin , Arterial 0.5 % 06/14/2024 10:26 AM [facility] Comment: Nonsmokers: 0.5-1.5% COHB ?? Smokers: Variable ??but usually less than 10% ?? Toxic: 20-30% COHB ?? Lethal: Greater than 60% COHB Methemoglobin, Arterial 0.5 <=1.5 % 06/14/2024 10:26 AM [facility] Sodium, Arterial 131(L) 135 - 145 mmol/L 06/14/2024 10:26 AM [facility] Potassium, Arterial 4.6 3.5 - 5.0 mmol/L 06/14/2024 10:26 AM [facility] Chloride, Arterial 103 98 - 107 mmol/L 06/14/2024 10:26 AM [facility] Lactate, Arterial 0.8 0.5 - 2.2 mmol/L 06/14/2024 10:26 AM [facility] IONIZED CALCIUM, ARTERIAL 0.91(LLL) 1.15 - 1.33 mmol/L 06/14/2024 10:26 AM [facility] Glucose, Arterial 148 65 - 199 mg/dL 06/14/2024 10:26 AM [facility] Comment:Glucose Concentratio n >=200 mg/dL plus symptoms is consistent with Diabetes Mellitus. Blood ARTERIAL BLOOD / Unknown 06/14/2024 10:25 AM EST 06/14/2024 10:26 AM EST Haja Byrnes MD POINT OF CARE TEST O RDERABLES [facility] [place] [place] [address] * Surgical Pathology (06/14/2024 9:53 AM EST) Case Report Surgical Pathology Report ? Case: [id number] ? Authorizing Provider: ??Bobby Loja MD ? Collected: ? 06/14/2024 0953 ? Ordering Location: ? Main Operating Room [facility] ?? Received: ?06/14/2024 1413 ? [facility] ? Hospital ? Pathologist: ? Sandra Salas [...] Inking: External surface inked black Sections/Process ing: Manufacturers Representative sections in 4 cassettes labeled A1-A4. cmk B. Heart, Atrial Appendage, Left, . B - Labeled/Fixative : Heart, atrial appendage, left, fresh. Quantity/Size: Single, 3.3 x 1.5 x 0.8 cm. Tissue Description: Portion of heart tissue consisting of rodriguez-white, semitranslucent, smooth endocardium with rodriguez-brown muscular myocardium and thin translucent epicardium with adherent adipose tissue. No areas of discoloration identified. Sections/Process ing: Manufacturers Representative sections in 1 cassette labeled B1. cmk 06/18/2024 10:18 AM [facility] Result Note Routine 06/18/2024 10:18 AM [facility] Tissue SOFT TISSUE MASS / Unknown 06/14/2024 9:53 AM EST 06/14/2024 2:13 PM EST Comment:Mediastinal mass Tissue specimen (specimen) LEFT ATRIAL APPENDAGE ABSENT / Unknown 06/14/2024 10:54 AM EST 06/14/2024 2:13 PM EST Comment:MARIALUISA Bobby Loja MD PATHOLOGY/CYTOLOGY O RDERABLES [facility] [place] [place] [address] * Cooximetry, POC (06/14/2024 9:00 AM EST) pO2, Coox 57 mmHg 06/14/2024 9:04 AM [facility] PO2 Corrected, COOX 50 mmHg 06/14/2024 9:04 AM [facility] Hemoglobin, Coox 14.3 13.7 - 16.5 g/dL 06/14/2024 9:04 AM [facility] Oxyhemoglobin, Coox 86.2 % 06/14/2024 9:04 AM [facility] Carboxyhemoglobi n, Coox 0.3 % 06/14/2024 9:04 AM [facility] Comment: Nonsmokers: 0.5-1.5% COHB ?? Smokers: Variable ??but usually less than 10% ?? Toxic: 20-30% COHB ?? Lethal: Greater than 60% COHB Methemoglobin, Coox 0.3 <=1.5 % 06/14/2024 9:04 AM [facility] Temperature Coox 35.2 C 06/14/20 24 9:04 AM [facility] Blood (Mixed Venous) 06/14/2024 9:00 AM EST 06/14/2024 9:04 AM EST Haja Byrnes MD POINT OF CARE TEST O RDERABLES [facility] [place] [place] [address] * (ABNORMAL) Blood Gas, Arterial POC (06/14/2024 8:39 AM EST) pH, Arterial 7.37 7.35 - 7.45 06/14/2024 8:40 AM [facility] PCO2, Arterial 42 35 - 45 mmHg 06/14/2024 8:40 AM [facility] PO2, Arterial 341(H) 85 - 104 mmHg 06/14/2024 8:40 AM [facility] Bicarbonate, Arterial 23.7 20.0 - 26.0 mmol/L 06/14/2024 8:40 AM [facility] Base Excess, Arterial -1.6 -3.0 - 3.0 mmol/L 06/14/2024 8:40 AM [facility] Hemoglobin, Arterial 15.2 13.7 - 16.5 g/dL 06/14/2024 8:40 AM [facility] Oxyhemoglobin, Arterial 99.2(H) 94.0 - 97.0 % 06/14/2024 8:40 AM [facility] Carboxyhemoglobin , Arterial 0.1 % 06/14/2024 8:40 AM [facility] Comment: Nonsmokers: 0.5-1.5% COHB ?? Smokers: Variable ??but usually less than 10% ?? Toxic: 20-30% COHB ?? Lethal: Greater than 60% COHB Methemoglobin, Arterial 0.3 <=1.5 % 06/14/2024 8:40 AM [facility] Sodium, Arterial 136 135 - 145 mmol/L 06/14/2024 8:40 AM [facility] Potassium, Arterial 4.2 3.5 - 5.0 mmol/L 06/14/2024 8:40 AM [facility] Chloride, Arterial 102 98 - 107 mmol/L 06/14/2024 8:40 AM [facility] Lactate, Arterial 0.9 0.5 - 2.2 mmol/L 06/14/2024 8:40 AM [facility] IONIZED CALCIUM, ARTERIAL 1.17 1.15 - 1.33 mmol/L 06/14/2024 8:40 AM [facility] Glucose, Arterial 121 65 - 199 mg/dL 06/14/2024 8:40 AM [facility] Comment:Glucose Concentratio n >=200 mg/dL plus symptoms is consistent with Diabetes Mellitus. Blood ARTERIAL BLOOD / Unknown 06/14/2024 8:39 AM EST 06/14/2024 8:40 AM EST Haja Byrnes MD POINT OF CARE TEST O RDERABLES [facility] [place] [address] * Transesophageal Echo/OR (06/14/2024 7:20 AM EST) Anatomical Region Laterality Modality Cardiac Other 06/14/2024 7:20 AM EST Narrative 06/14/2024 4:36 PM EST Version: 2 Study ID: [id number] [address] [place] [address] ?OR Transesophageal Echo Report Name: TYSON GEORGE [...] of this mass after consultation with other dispatcher automobile rental experts and the decision was made by [...] 6-14 ?large 15-16 ?diffuse Reading Physician ?Hosea Ardno MD ? 06/14/2024, 4: 38 PM Procedure Note Hosea Ardon MD - 06/14/2024 Version: 2 Study ID: [id number] [address] [place] [address] ORTransesophageal Echo Report Name: GEORGE MEHTA Study [...] of this mass after consultation with other dispatcher automobile rental experts and thedecision was made by surgeon [...] - 199 mg/dL 06/14/2024 7:12 AM EST [facility] Comment:Supplemental ranges: <140 mg/dL before meals <180 mg/dL all other times of the day. Blood CAPILLARY BLOOD / Unknown 06/14/2024 7:11 AM EST 06/14/2024 7:12 AM EST Haja Byrnes MD POINT OF CARE TEST O RDERABLES [facility] [place] [address] * POC, GLUCOSE (06/14/2024 4:30 AM EST) Glucometer, POC 85 65 - 199 mg/dL 06/14/2024 4:30 AM EST [facility] Comment:Supplemental ranges: <140 mg/dL before meals <180 mg/dL all other times of the day. Blood CAPILLARY BLOOD / Unknown 06/14/2024 4:30 AM EST 06/14/2024 4:30 AM EST Haja Byrnes MD POINT OF CARE TEST O RDERABLES Performing Organization Address [facility]/ZIP Co de Phone Number [facility] [place] [address] * (ABNORMAL) Heparin (unfractionated) Level (06/14/2024 12:12 AM EST) UF Heparin 1.02(HHH) IU/mL 06/14/2024 12:46 AM EST [facility] Comment: Heparin (anti-Xa) levels [...] MD HEMATOLOGY ORDERABLE S Performing Organization Address City/[facility]/ZIP Co de Phone Number [facility] [place] [address] * (ABNORMAL) CBC (with Diff) (06/14/2024 12:12 AM EST) White Blood Cell 10.51(H) 4.00 - 9.50 x10(3)/mc L 06/14/2024 12:38 AM EST [facility] Red Blood Cell 4.99 4.58 - 5.54 x10(6)/mc L 06/14/2024 12:38 AM EST [facility] Hemoglobin 14.9 13.7 - 16.5 g/dL 06/14/2024 12:38 AM [facility] Hematocrit 45.9 40.5 - 48.5 % 06/14/2024 12:38 AM [facility] Mean Cell Volume 92.0 82.9 - 93.1 fL 06/14/2024 12:38 AM [facility] Mean Cell Hemoglobin 29.9 27.5 - 32.1 pg 06/14/2024 12:38 AM [facility] Mean Cell Hemoglobin Concentration 32.5 32.0 - 35.7 g/dL 06/14/2024 12:38 AM [facility] Platelet 162 145 - 357 x10(3)/mc L 06/14/2024 12:38 AM [facility] Mean Platelet Volume 10.1 7.6 - 12.9 fL 06/14/2024 12:38 AM [facility] RDW Standard Deviation 46.9(H) 36.0 - 45.0 fL 06/14/2024 12:38 AM [facility] RDW coefficient of variation 13.8 11.4 - 13.8 % 06/14/2024 12:38 AM [facility] NRBC% auto 0.0 % 06/14/2024 12:38 AM [facility] NRBC Absolute <0.01 <0.01 x10(3)/mc L 06/14/2024 12:38 AM [facility] Neutrophil % 56.7 % 06/14/2024 12:38 AM [facility] Neutrophil Absolute (ANC) - Automated 5.96 1.70 - 6.10 x10(3)/mc L 06/14/2024 12:38 AM [facility] Lymph % 26.8 % 06/14/2024 12:38 AM [facility] Lymph Absolute 2.82 0.90 - 3.20 x10(3)/mc L 06/14/2024 12:38 AM [facility] Monocyte % 11.2 % 06/14/2024 12:38 AM EST [facility] Monocyte Absolute 1.18(H) 0.30 - 0.90 x10(3)/mc L 06/14/2024 12:38 AM [facility] Eos % 3.9 % 06/14/2024 12:38 AM [facility] Eos Absolute 0.41(H) 0.00 - 0.40 x10(3)/mc L 06/14/2024 12:38 AM EST [facility] Basophil % 0.8 % 06/14/2024 12:38 AM [facility] Baso Absolute 0.08 0.00 - 0.10 x10(3)/mc L 06/14/2024 12:38 AM [facility] Immature Gran % 0.6 % 12:38 AM [facility] Immature Gran Absolute 0.06(H) 0.00 - 0.04 x10(3)/mc L 06/14/2024 12:38 AM [facility] Blood VENOUS BLOOD SPECIMEN / Unknown Venipuncture / Unknown 06/14/2024 12:12 AM EST 06/14/2024 12:29 AM EST Shahnaz Scanlon MD HEMATOLOGY ORDERABLE S [facility] [place] [address] * Magnesium (06/14/2024 12:12 AM EST) Magnesium 0.74 0.69 - 1.07 mMol/L 06/14/2024 12:57 AM EST [facility] Blood VENOUS BLOOD SPECIMEN / Unknown Venipuncture / Unknown 06/14/2024 12:12 AM EST 06/14/2024 12:29 AM EST Shahnaz Scanlon MD CHEMISTRY ORDERABLES [facility] [place] [address] * (ABNORMAL) Basic Metabolic Panel (06/14/2024 12:12 AM EST) Glucose 97 65 - 199 mg/dL 06/14/2024 12:57 AM [facility] Comment:Glucose Concentratio n >=200 mg/dL plus symptoms is consistent with Diabetes Mellitus. Blood Urea Nitrogen 25(H) 10 - 20 mg/dL 06/14/2024 12:57 AM [facility] Creatinine 1.14 0.80 - 1.50 mg/dL 06/14/2024 12:57 AM [facility] Sodium 135 135 - 145 mMol/L 06/14/2024 12:57 AM [facility] Potassium 4.1 3.5 - 5.0 mMol/L 06/14/2024 12:57 AM [facility] Chloride 100 98 - 107 mMol/L 06/14/2024 12:57 AM [facility] Carbon Dioxide 25 22 - 31 mMol/L 06/14/2024 12:57 AM [facility] Anion Gap 10 5 - 15 mMol/L 06/14/2024 12:57 AM [facility] Calcium 9.5 8.5 - 10.5 mg/dL 06/14/2024 12:57 AM [facility] Est Glomerular Filtration Rate - Male 70 mL/min/1. 73 m?? 06/14/2024 12:57 AM [facility] Comment: This patient's [...] Scanlon MD CHEMISTRY ORDERABLES Performing Organization Address [facility] Co de Phone Number [facility] [place] [address] * Scan Doc: Implantable Devices (06/14/2024 12:00 AM EST) Narrative 06/14/2024 12:00 AM EST Ordered by an unspecified provider. Scanning Provider MEDIA MGR SCAN EXT O RDR/RSLT * POC, GLUCOSE (06/13/2024 11:12 PM EST) Glucometer, POC 104 65 - 199 mg/dL 06/13/2024 11:13 PM EST [facility] Comment:Supplemental ranges: <140 mg/dL before meals <180 mg/dL all other times of the day. Blood CAPILLARY BLOOD / Unknown 06/13/2024 11:12 PM EST 06/13/2024 11:13 PM EST Haja Byrnes MD POINT OF CARE TEST O RDERAPIETER Performing Organization Address [facility] Co de Phone Number [facility] [place] [place] [address] * (ABNORMAL) POC, GLUCOSE (06/13/2024 8:03 PM EST) Glucometer, POC 206(H) 65 - 199 mg/dL 06/13/2024 8:03 PM EST [facility] Comment:Supplemental ranges: <140 mg/dL before meals <180 mg/dL all other times of the day. Blood CAPILLARY BLOOD / Unknown 06/13/2024 8:03 PM EST 06/13/2024 8:03 PM EST Haja Byrnes MD POINT OF CARE TEST O RDERABLES Performing Organization Address City/[facility]/ZIP Co de Phone Number [facility] [place] [address] * Heparin (unfractionated) Level (06/13/2024 4:11 PM EST) Pathologist [facility] UF Heparin 0.76 IU/mL 06/13/2024 4:24 PM EST [facility] Comment: Heparin (anti-Xa) levels [...] MD HEMATOLOGY ORDERABLE S Performing Organization Address City/[facility]/ZIP Co de Phone Number [facility] [place] [address] * ABORH RECHECK (06/13/2024 4:11 PM EST) Pathologist [facility] ABORH Recheck O POSITIVE 06/13/2024 4:50 PM EST [facility] Blood VENOUS BLOOD SPECIMEN / Unknown Venipuncture / Unknown 06/13/2024 4:11 PM EST 06/13/2024 4:19 PM EST Haja Byrnes MD BLOOD BANK LAB ORDER EUSEBIA Performing Organization Address City/[facility]/ZIP Co de Phone Number [facility] Port [place] [address] * (ABNORMAL) POC, GLUCOSE (06/13/2024 4:09 PM EST) [facility] Glucometer, POC 216(H) 65 - 199 mg/dL 06/13/2024 4:10 PM EST [facility] Comment:Supplemental ranges: <140 mg/dL before meals <180 mg/dL all other times of the day. Blood CAPILLARY BLOOD / Unknown 06/13/2024 4:09 PM EST 06/13/2024 4:10 PM EST Haja Byrnes MD POINT OF CARE TEST O RDERABLES [facility] [place] [address] * Type and screen ([facility] [place]CGP/RAFITA) (06/13/2024 11:53 AM EST) [facility] ABORH Type O POSITIVE 06/13/2024 1:16 PM EST [facility] PATIENT HISTORY Not Found 06/13/2024 1:16 PM EST [facility] Expires at [id number] on: 06/16/2024 06/13/2024 1:16 PM EST [facility] ANTIBODY SCREEN AUTOMATED Negative 06/13/2024 1:16 PM EST [facility] T&S only valid at [facility] [place] [facility] 06/13/2024 1:16 PM EST [facility] Blood VENOUS BLOOD SPECIMEN / Unknown Venipuncture / Unknown 06/13/2024 11:53 AM EST 06/13/2024 11:56 AM EST Narrative [facility] - 06/13/2024 1:16 PM EST This Type and Screen result is only valid at the [facility] [place] [facility] Haja Byrnes MD BLOOD BANK LAB ORDER EUSEBIA [facility] [place] [address] * POC, GLUCOSE (06/13/2024 11:50 AM EST) Glucometer, POC 178 65 - 199 mg/dL 06/13/2024 11:51 AM EST [facility] Comment:Supplemental ranges: <140 mg/dL before meals <180 mg/dL all other times of the day. Blood CAPILLARY BLOOD / Unknown 06/13/2024 11:50 AM EST 06/13/2024 11:51 AM EST Haja Byrnes MD POINT OF CARE TEST O RDERABLES [facility] [place] [address] * XR Chest One View (06/13/2024 10:35 AM EST) [facility] WORKSTATION ID [id number] RAD Anatomical Region Laterality Modality Chest N/A [...] have questions please contact the health career advisor that requested your imaging first. ? Narrative [...] who have questions please contactthe health career advisor that requested your imaging first. Haja Byrnes MD IMG DX ORDERABLES * CARDIAC CATHETERIZATION (06/13/2024 9:02 AM EST) Anatomical Region Laterality Modality Other Narrative 06/15/2024 9:07 AM EST ?[facility] ? Cardiac Catheterization/Intervention Report ? Patient Name: Tyson, George L. ? Procedure Date: 06/13/2024 ? A #: [id number] ? Primary Physician: Nuha Shen I ? Case #: [id number] ? File Name: [id number] ? Catheterization Order Number: [id number] ? [facility] ? Final Report [place], [place] ? Patient Name: ? George L. Tyson ? ID#: ?[id number] ? : ?1955 ? Procedure Date: ? June 13, 2024 ?Case #: ? [id number] ? Room: ? 6 ? Case Physician: [...] ?was designated as ASA Class IV. The [facility] clinical frailty scale is 5: [...] procedure was Urgent. 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 ? Nuha Shen M.D. ? Electronically Signed by: Nuha Shen M.D. ? Report Finalized: 06/15/2024 ??08:59 ? Procedure Note uNha Shen MD - 06/15/2024 [facility] Cardiac Catheterization/Intervention Report Patient Name: George Mehta Procedure Date: 06/13/2024 A #: [id number] Primary Physician: Nuha Shen I Case #: [id number] File Name: [id number] Catheterization Order Number: [id number] [facility] FinalReport [place], [place] Patient Name: George Mehta ID#:[id number] :1955 Procedure Date: June 13, 2024 Case [...] was designated as ASA Class IV. The [facility] clinical frailty scale is5: Mildly [...] diagnostic procedure was Urgent. The indicationfor the fish farm laborer visit is ACS greater than 24 [...] site angiography,vascular ultrasound and IABP insertion in fish farm laborer. Nuha Shen M.D. Electronically Signed by: Nuha Shen M.D. Report Finalized: 06/15/2024 08:59 Nuha Rojo MD CARDIAC CATH ORDERA BLES * Potassium (06/13/2024 7:48 AM EST) Potassium 4.5 3.5 - 5.0 mMol/L 06/13/2024 8:28 AM EST [facility] Blood VENOUS BLOOD SPECIMEN / Unknown Venipuncture / Unknown 06/13/2024 7:48 AM EST 06/13/2024 7:55 AM EST Shahnaz Scanlon MD CHEMISTRY ORDERABLES [facility] [place] [address] * POC, GLUCOSE (06/13/2024 7:41 AM EST) Glucometer, POC 126 65 - 199 mg/dL 06/13/2024 7:41 AM EST [facility] Comment:Supplemental ranges: <140 mg/dL before meals <180 mg/dL all other times of the day. Blood CAPILLARY BLOOD / Unknown 06/13/2024 7:41 AM EST 06/13/2024 7:41 AM EST Ethel Carrillo MD POINT OF CARE TEST O NIKA Performing Organization Address [facility] Co de Phone Number [facility] [place] [address] * POC, GLUCOSE (06/13/2024 3:25 AM EST) Glucometer, POC 99 65 - 199 mg/dL 06/13/2024 3:25 AM EST [facility] Comment:Supplemental ranges: <140 mg/dL before meals <180 mg/dL all other times of the day. Blood CAPILLARY BLOOD / Unknown 06/13/2024 3:25 AM EST 06/13/2024 3:25 AM EST Ethel Carrillo MD POINT OF CARE TEST Abimael MAHER Performing Organization Address [facility] de Phone Number [facility] [place] [address] * Heparin (unfractionated) Level (06/13/2024 2:26 AM EST) [facility] UF Heparin 0.60 IU/mL 06/13/2024 3:32 AM EST [facility] Comment: Heparin (anti-Xa) levels [...] EST Shahnaz Scanlon MD HEMATOLOGY ORDERABLE S [facility] [place] [address] * (ABNORMAL) CBC (with Diff) (06/13/2024 2:26 AM EST) White Blood Cell 9.98(H) 4.00 - 9.50 x10(3)/mc L 06/13/2024 2:41 AM [facility] Red Blood Cell 5.11 4.58 - 5.54 x10(6)/mc L 06/13/2024 2:41 AM [facility] Hemoglobin 15.3 13.7 - 16.5 g/dL 06/13/2024 2:41 AM [facility] Hematocrit 47.1 40.5 - 48.5 % 06/13/2024 2:41 AM [facility] Mean Cell Volume 92.2 82.9 - 93.1 fL 06/13/2024 2:41 AM [facility] Mean Cell Hemoglobin 29.9 27.5 - 32.1 pg 06/13/2024 2:41 AM [facility] Mean Cell Hemoglobin Concentration 32.5 32.0 - 35.7 g/dL 06/13/2024 2:41 AM [facility] Platelet 194 145 - 357 x10(3)/mc L 06/13/2024 2:41 AM [facility] Mean Platelet Volume 9.7 7.6 - 12.9 fL 06/13/2024 2:41 AM [facility] RDW Standard Deviation 47.5(H) 36.0 - 45.0 fL 06/13/2024 2:41 AM [facility] RDW coefficient of variation 13.8 11.4 - 13.8 % 06/13/2024 2:41 AM [facility] NRBC% auto 0.0 % 06/13/2024 2:41 AM [facility] NRBC Absolute <0.01 <0.01 x10(3)/mc L 06/13/2024 2:41 AM [facility] Neutrophil % 48.8 % 06/13/2024 2:41 AM [facility] Neutrophil Absolute (ANC) - Automated 4.87 1.70 - 6.10 x10(3)/mc L 06/13/2024 2:41 AM [facility] Lymph % 35.3 % 06/13/2024 2:41 AM [facility] Lymph Absolute 3.52(H) 0.90 - 3.20 x10(3)/mc L 06/13/2024 2:41 AM [facility] Monocyte % 10.1 % 06/13/2024 2:41 AM [facility] Monocyte Absolute 1.01(H) 0.30 - 0.90 x10(3)/mc L 06/13/2024 2:41 AM [facility] Eos % 4.4 % 06/13/2024 2:41 AM [facility] Eos Absolute 0.44(H) 0.00 - 0.40 x10(3)/mc L 06/13/2024 2:41 AM [facility] Basophil % 0.9 % 06/13/2024 2:41 AM [facility] Baso Absolute 0.09 0.00 - 0.10 x10(3)/mc L 06/13/2024 2:41 AM [facility] Immature Gran % 0.5 % 2:41 AM [facility] Immature Gran Absolute 0.05(H) 0.00 - 0.04 x10(3)/mc L 06/13/2024 2:41 AM EST [facility] Blood VENOUS BLOOD SPECIMEN / Unknown Venipuncture / Unknown 06/13/2024 2:26 AM EST 06/13/2024 2:32 AM EST Shahnaz Scanlon MD HEMATOLOGY ORDERABLE S Performing Organization Address City/[facility]/ZIP Co de Phone Number [facility] [place] [place] [address] * Magnesium (06/13/2024 2:26 AM EST) Magnesium 0.78 0.69 - 1.07 mMol/L 06/13/2024 2:58 AM [facility] Blood VENOUS BLOOD SPECIMEN / Unknown Venipuncture / Unknown 06/13/2024 2:26 AM EST 06/13/2024 2:31 AM EST Shahnaz Scanlon MD CHEMISTRY ORDERABLES Performing Organization Address City/[facility]/ZIP Co de Phone Number [facility] [place] [address] * (ABNORMAL) Basic Metabolic Panel (06/13/2024 2:26 AM EST) Glucose 121 65 - 199 mg/dL 06/13/2024 2:58 AM [facility] Comment:Glucose Concentratio n >=200 mg/dL plus symptoms is consistent with Diabetes Mellitus. Blood Urea Nitrogen 21(H) 10 - 20 mg/dL 06/13/2024 2:58 AM EST [facility] Creatinine 1.07 0.80 - 1.50 mg/dL 06/13/2024 2:58 AM [facility] Sodium 136 135 - 145 mMol/L 06/13/2024 2:58 AM [facility] Potassium 3.9 3.5 - 5.0 mMol/L 06/13/2024 2:58 AM [facility] Chloride 99 98 - 107 mMol/L 06/13/2024 2:58 AM [facility] Carbon Dioxide 27 22 - 31 mMol/L 06/13/2024 2:58 AM EST [facility] Anion Gap 10 5 - 15 mMol/L 06/13/2024 2:58 AM [facility] Calcium 9.7 8.5 - 10.5 mg/dL 06/13/2024 2:58 AM EST [facility] Est Glomerular Filtration Rate - Male 76 mL/min/1. 73 m?? 06/13/2024 2:58 AM [facility] Comment: This patient's [...] AM EST Shahnaz Scanlon MD CHEMISTRY ORDERABLES [facility] [place] [address] * POC, GLUCOSE (06/12/2024 11:53 PM EST) [facility] Glucometer, POC 141 65 - 199 mg/dL 06/12/2024 11:54 PM EST [facility] Comment:Supplemental ranges: <140 mg/dL before meals <180 mg/dL all other times of the day. Blood CAPILLARY BLOOD / Unknown 06/12/2024 11:53 PM EST 06/12/2024 11:54 PM EST Ethel Carrillo MD POINT OF CARE TEST O RDERABLES [facility] [place] [place] [address] * POC, GLUCOSE (06/12/2024 7:32 PM EST) Glucometer, POC 158 65 - 199 mg/dL 06/12/2024 7:32 PM EST [facility] Comment:Supplemental ranges: <140 mg/dL before meals <180 mg/dL all other times of the day. Blood CAPILLARY BLOOD / Unknown 06/12/2024 7:32 PM EST 06/12/2024 7:32 PM EST Ethel Carrillo MD POINT OF CARE TEST O NIKA Performing Organization Address [facility] de Phone Number [facility] [place] [address] * POC, GLUCOSE (06/12/2024 3:41 PM EST) Glucometer, POC 113 65 - 199 mg/dL 06/12/2024 3:41 PM EST [facility] Comment:Supplemental ranges: <140 mg/dL before meals <180 mg/dL all other times of the day. Blood CAPILLARY BLOOD / Unknown 06/12/2024 3:41 PM EST 06/12/2024 3:41 PM EST Ethel Carrillo MD POINT OF CARE TEST O NIKA Performing Organization Address [facility] Co de Phone Number [facility] [place] [address] * Potassium (06/12/2024 2:19 PM EST) Potassium 4.5 3.5 - 5.0 mMol/L 06/12/2024 2:45 PM EST [facility] Blood VENOUS BLOOD SPECIMEN / Unknown Venipuncture / Unknown 06/12/2024 2:19 PM EST 06/12/2024 2:23 PM EST Shahnaz Scanlon MD CHEMISTRY ORDERABLES Performing Organization Address [facility] Co de Phone Number [facility] [place] [address] * (ABNORMAL) POC, GLUCOSE (06/12/2024 11:21 AM EST) Glucometer, POC 207(H) 65 - 199 mg/dL 06/12/2024 11:21 AM EST [facility] Comment:Supplemental ranges: <140 mg/dL before meals <180 mg/dL all other times of the day. Blood CAPILLARY BLOOD / Unknown 06/12/2024 11:21 AM EST 06/12/2024 11:22 AM EST Ethel Carrillo MD POINT OF CARE TEST O NIKA Performing Organization Address [facility] Co de Phone Number [facility] [place] [place] [address] * POC, GLUCOSE (06/12/2024 8:00 AM EST) Glucometer, POC 169 65 - 199 mg/dL 06/12/2024 8:01 AM EST [facility] Comment:Supplemental ranges: <140 mg/dL before meals <180 mg/dL all other times of the day. Blood CAPILLARY BLOOD / Unknown 06/12/2024 8:00 AM EST 06/12/2024 8:01 AM EST Ethel Carrillo MD POINT OF CARE TEST O NIKA Performing Organization Address [facility] Co de Phone Number [facility] [place] [place] [address] * POC, GLUCOSE (06/12/2024 4:25 AM EST) Glucometer, POC 132 65 - 199 mg/dL 06/12/2024 4:26 AM EST [facility] Comment:Supplemental ranges: <140 mg/dL before meals <180 mg/dL all other times of the day. Blood CAPILLARY BLOOD / Unknown 06/12/2024 4:25 AM EST 06/12/2024 4:26 AM EST Ethel Carrillo MD POINT OF CARE TEST O RDERABLES Performing Organization Address [facility] Co de Phone Number [facility] [place] [address] * Heparin (unfractionated) Level (06/12/2024 3:03 AM EST) UF Heparin 0.55 IU/mL 06/12/2024 3:44 AM EST [facility] Comment: Heparin (anti-Xa) levels [...] MD HEMATOLOGY ORDERABLE S Performing Organization Address City/[facility]/ZIP Co de Phone Number [facility] [place] [address] * (ABNORMAL) CBC (with Diff) (06/12/2024 3:03 AM EST) White Blood Cell 9.69(H) 4.00 - 9.50 x10(3)/mc L 06/12/2024 3:36 AM EST [facility] Red Blood Cell 5.05 4.58 - 5.54 x10(6)/mc L 06/12/2024 3:36 AM [facility] Hemoglobin 15.2 13.7 - 16.5 g/dL 06/12/2024 3:36 AM [facility] Hematocrit 46.6 40.5 - 48.5 % 06/12/2024 3:36 AM [facility] Mean Cell Volume 92.3 82.9 - 93.1 fL 06/12/2024 3:36 AM [facility] Mean Cell Hemoglobin 30.1 27.5 - 32.1 pg 06/12/2024 3:36 AM [facility] Mean Cell Hemoglobin Concentration 32.6 32.0 - 35.7 g/dL 06/12/2024 3:36 AM [facility] Platelet 194 145 - 357 x10(3)/mc L 06/12/2024 3:36 AM [facility] Mean Platelet Volume 10.1 7.6 - 12.9 fL 06/12/2024 3:36 AM [facility] RDW Standard Deviation 47.7(H) 36.0 - 45.0 fL 06/12/2024 3:36 AM [facility] RDW coefficient of variation 14.0(H) 11.4 - 13.8 % 06/12/2024 3:36 AM [facility] NRBC% auto 0.0 % 06/12/2024 3:36 AM [facility] NRBC Absolute <0.01 <0.01 x10(3)/mc L 06/12/2024 3:36 AM [facility] Neutrophil % 49.9 % 06/12/2024 3:36 AM [facility] Neutrophil Absolute (ANC) - Automated 4.82 1.70 - 6.10 x10(3)/mc L 06/12/2024 3:36 AM [facility] Lymph % 33.5 % 06/12/2024 3:36 AM [facility] Lymph Absolute 3.25(H) 0.90 - 3.20 x10(3)/mc L 06/12/2024 3:36 AM [facility] Monocyte % 11.1 % 06/12/2024 3:36 AM [facility] Monocyte Absolute 1.08(H) 0.30 - 0.90 x10(3)/mc L 06/12/2024 3:36 AM [facility] Eos % 4.1 % 06/12/2024 3:36 AM [facility] Eos Absolute 0.40 0.00 - 0.40 x10(3)/mc L 06/12/2024 3:36 AM [facility] Basophil % 0.8 % 06/12/2024 3:36 AM [facility] Baso Absolute 0.08 0.00 - 0.10 x10(3)/mc L 06/12/2024 3:36 AM [facility] Immature Gran % 0.6 % 3:36 AM [facility] Immature Gran Absolute 0.06(H) 0.00 - 0.04 x10(3)/mc L 06/12/2024 3:36 AM [facility] Blood VENOUS BLOOD SPECIMEN / Unknown Venipuncture / Unknown 06/12/2024 3:03 AM EST 06/12/2024 3:30 AM EST Shahnaz Scanlon MD HEMATOLOGY ORDERABLE S [facility] [place] [address] * Magnesium (06/12/2024 3:03 AM EST) Magnesium 0.79 0.69 - 1.07 mMol/L 06/12/2024 4:01 AM [facility] Blood VENOUS BLOOD SPECIMEN / Unknown Venipuncture / Unknown 06/12/2024 3:03 AM EST 06/12/2024 3:30 AM EST Shahnaz Scanlon MD CHEMISTRY ORDERABLES [facility] [place] [address] * (ABNORMAL) Basic Metabolic Panel (06/12/2024 3:03 AM EST) Glucose 132 65 - 199 mg/dL 06/12/2024 4:01 AM [facility] Comment:Glucose Concentratio n >=200 mg/dL plus symptoms is consistent with Diabetes Mellitus. Blood Urea Nitrogen 23(H) 10 - 20 mg/dL 06/12/2024 4:01 AM [facility] Creatinine 1.15 0.80 - 1.50 mg/dL 06/12/2024 4:01 AM [facility] Sodium 138 135 - 145 mMol/L 06/12/2024 4:01 AM [facility] Potassium 3.8 3.5 - 5.0 mMol/L 06/12/2024 4:01 AM [facility] Chloride 98 98 - 107 mMol/L 06/12/2024 4:01 AM [facility] Carbon Dioxide 29 22 - 31 mMol/L 06/12/2024 4:01 AM [facility] Anion Gap 11 5 - 15 mMol/L 06/12/2024 4:01 AM [facility] Calcium 9.5 8.5 - 10.5 mg/dL 06/12/2024 4:01 AM [facility] Est Glomerular Filtration Rate - Male 70 mL/min/1. 73 m?? 06/12/2024 4:01 AM [facility] Comment: This patient's [...] Scanlon MD CHEMISTRY ORDERABLES Performing Organization Address [facility]/ZIP Co de Phone Number [facility] [place] [place] [address] * POC, GLUCOSE (06/11/2024 11:56 PM EST) Glucometer, POC 135 65 - 199 mg/dL 06/11/2024 11:56 PM EST [facility] Comment:Supplemental ranges: <140 mg/dL before meals <180 mg/dL all other times of the day. Blood CAPILLARY BLOOD / Unknown 06/11/2024 11:56 PM EST 06/11/2024 11:56 PM EST Ethel Carrillo MD POINT OF CARE TEST O NIKA Performing Organization Address [facility] de Phone Number [facility] [place] [address] * (ABNORMAL) POC, GLUCOSE (06/11/2024 8:25 PM EST) Glucometer, POC 210(H) 65 - 199 mg/dL 06/11/2024 8:26 PM EST [facility] Comment:Supplemental ranges: <140 mg/dL before meals <180 mg/dL all other times of the day. Blood CAPILLARY BLOOD / Unknown 06/11/2024 8:25 PM EST 06/11/2024 8:26 PM EST Ethel Carrillo MD POINT OF CARE TEST O RDBECKIE Performing Organization Address City/[facility]/ZIP Co de Phone Number [facility] [place] [place] [address] * POC, GLUCOSE (06/11/2024 4:24 PM EST) Glucometer, POC 81 65 - 199 mg/dL 06/11/2024 4:24 PM EST [facility] Comment:Supplemental ranges: <140 mg/dL before meals <180 mg/dL all other times of the day. Blood CAPILLARY BLOOD / Unknown 06/11/2024 4:24 PM EST 06/11/2024 4:25 PM EST Ethel Carrillo MD POINT OF CARE TEST O RDERAPIETER Performing Organization Address [facility] Co de Phone Number [facility] [place] [address] * (ABNORMAL) POC, GLUCOSE (06/11/2024 11:08 AM EST) Glucometer, POC 233(H) 65 - 199 mg/dL 06/11/2024 11:08 AM EST [facility] Comment:Supplemental ranges: <140 mg/dL before meals <180 mg/dL all other times of the day. Blood CAPILLARY BLOOD / Unknown 06/11/2024 11:08 AM EST 06/11/2024 11:08 AM EST Ethel Carrillo MD POINT OF CARE TEST O NIKA Performing Organization Address [facility] Co de Phone Number [facility] [place] [address] * POC, GLUCOSE (06/11/2024 7:48 AM EST) Glucometer, POC 184 65 - 199 mg/dL 06/11/2024 7:49 AM EST [facility] Comment:Supplemental ranges: <140 mg/dL before meals <180 mg/dL all other times of the day. Blood CAPILLARY BLOOD / Unknown 06/11/2024 7:48 AM EST 06/11/2024 7:49 AM EST Melida Valdes MD POINT OF CARE TEST O RDERABLES [facility] [place] [place] [address] * Heparin (unfractionated) Level (06/11/2024 5:31 AM EST) UF Heparin 0.55 IU/mL 06/11/2024 6:10 AM EST [facility] Comment: Heparin (anti-Xa) levels [...] EST Shahnaz Scanlon MD HEMATOLOGY ORDERABLE S [facility] [place] [address] * POC, GLUCOSE (06/11/2024 3:57 AM EST) [facility] Glucometer, POC 132 65 - 199 mg/dL 06/11/2024 3:58 AM EST [facility] Comment:Supplemental ranges: <140 mg/dL before meals <180 mg/dL all other times of the day. Blood CAPILLARY BLOOD / Unknown 06/11/2024 3:57 AM EST 06/11/2024 3:58 AM EST Melida Valdes MD POINT OF CARE TEST O RDERABLES [facility] [place] [address] * (ABNORMAL) CBC (with Diff) (06/11/2024 2:13 AM EST) White Blood Cell 9.91(H) 4.00 - 9.50 x10(3)/mc L 06/11/2024 2:26 AM [facility] Red Blood Cell 5.13 4.58 - 5.54 x10(6)/mc L 06/11/2024 2:26 AM [facility] Hemoglobin 15.3 13.7 - 16.5 g/dL 06/11/2024 2:26 AM [facility] Hematocrit 47.5 40.5 - 48.5 % 06/11/2024 2:26 AM [facility] Mean Cell Volume 92.6 82.9 - 93.1 fL 06/11/2024 2:26 AM [facility] Mean Cell Hemoglobin 29.8 27.5 - 32.1 pg 06/11/2024 2:26 AM [facility] Mean Cell Hemoglobin Concentration 32.2 32.0 - 35.7 g/dL 06/11/2024 2:26 AM [facility] Platelet 184 145 - 357 x10(3)/mc L 06/11/2024 2:26 AM [facility] Mean Platelet Volume 9.7 7.6 - 12.9 fL 06/11/2024 2:26 AM [facility] RDW Standard Deviation 48.0(H) 36.0 - 45.0 fL 06/11/2024 2:26 AM [facility] RDW coefficient of variation 14.0(H) 11.4 - 13.8 % 06/11/2024 2:26 AM [facility] NRBC% auto 0.0 % 06/11/2024 2:26 AM [facility] NRBC Absolute <0.01 <0.01 x10(3)/mc L 06/11/2024 2:26 AM [facility] Neutrophil % 50.3 % 06/11/2024 2:26 AM [facility] Neutrophil Absolute (ANC) - Automated 4.98 1.70 - 6.10 x10(3)/mc L 06/11/2024 2:26 AM [facility] Lymph % 33.5 % 06/11/2024 2:26 AM [facility] LABORATORY Lymph Absolute 3.32(H) 0.90 - 3.20 x10(3)/mc L 06/11/2024 2:26 AM [facility] Monocyte % 10.9 % 06/11/2024 2:26 AM [facility] Monocyte Absolute 1.08(H) 0.30 - 0.90 x10(3)/mc L 06/11/2024 2:26 AM [facility] Eos % 4.1 % 06/11/2024 2:26 AM [facility] Eos Absolute 0.41(H) 0.00 - 0.40 x10(3)/mc L 06/11/2024 2:26 AM [facility] Basophil % 0.7 % 06/11/2024 2:26 AM [facility] Baso Absolute 0.07 0.00 - 0.10 x10(3)/mc L 06/11/2024 2:26 AM [facility] Immature Gran % 0.5 % 2:26 AM [facility] Immature Gran Absolute 0.05(H) 0.00 - 0.04 x10(3)/mc L 06/11/2024 2:26 AM [facility] Blood VENOUS BLOOD SPECIMEN / Unknown Venipuncture / Unknown 06/11/2024 2:13 AM EST 06/11/2024 2:19 AM EST Shahnaz Scanlon MD HEMATOLOGY ORDERABLE S [facility] [place] [place] [address] * Magnesium (06/11/2024 2:13 AM EST) Pathologist [facility] Magnesium 0.83 0.69 - 1.07 mMol/L 06/11/2024 2:51 AM [facility] Blood VENOUS BLOOD SPECIMEN / Unknown Venipuncture / Unknown 06/11/2024 2:13 AM EST 06/11/2024 2:19 AM EST Shahnaz Scanlon MD CHEMISTRY ORDERABLES Performing Organization Address City/[facility]/ZIP Co de Phone Number [facility] [place] [address] * (ABNORMAL) Basic Metabolic Panel (06/11/2024 2:13 AM EST) [facility] Glucose 148 65 - 199 mg/dL 06/11/2024 2:51 AM [facility] Comment:Glucose Concentratio n >=200 mg/dL plus symptoms is consistent with Diabetes Mellitus. Blood Urea Nitrogen 24(H) 10 - 20 mg/dL 06/11/2024 2:51 AM [facility] Creatinine 1.06 0.80 - 1.50 mg/dL 06/11/2024 2:51 AM [facility] Sodium 134(L) 135 - 145 mMol/L 06/11/2024 2:51 AM [facility] Potassium 4.1 3.5 - 5.0 mMol/L 06/11/2024 2:51 AM [facility] Chloride 96(L) 98 - 107 mMol/L 06/11/2024 2:51 AM [facility] Carbon Dioxide 28 22 - 31 mMol/L 06/11/2024 2:51 AM [facility] Anion Gap 10 5 - 15 mMol/L 06/11/2024 2:51 AM [facility] Calcium 9.4 8.5 - 10.5 mg/dL 06/11/2024 2:51 AM EST [facility] Est Glomerular Filtration Rate - Male 77 mL/min/1. 73 m?? 06/11/2024 2:51 AM EST [facility] Comment: This patient's estimated [...] Scanlon MD CHEMISTRY ORDERABLES Performing Organization Address City/[facility]/ZIP Co de Phone Number [facility] [place] [address] * POC, GLUCOSE (06/11/2024 12:50 AM EST) Glucometer, POC 144 65 - 199 mg/dL 06/11/2024 12:51 AM EST [facility] Comment:Supplemental ranges: <140 mg/dL before meals <180 mg/dL all other times of the day. Blood CAPILLARY BLOOD / Unknown 06/11/2024 12:50 AM EST 06/11/2024 12:51 AM EST Melida Valdes MD POINT OF CARE TEST O RDERABLES Performing Organization Address City/[facility]/ZIP Co de Phone Number [facility] [place] [place] [address] * (ABNORMAL) POC, GLUCOSE (06/10/2024 7:22 PM EST) Glucometer, POC 236(H) 65 - 199 mg/dL 06/10/2024 7:22 PM [facility] Comment:Supplemental ranges: <140 mg/dL before meals <180 mg/dL all other times of the day. Blood CAPILLARY BLOOD / Unknown 06/10/2024 7:22 PM EST 06/10/2024 7:22 PM EST Melida Valdes MD POINT OF CARE TEST O NIKA [facility] [place] [place] [address] * (ABNORMAL) Blood Gas, Venous (06/10/2024 5:42 [...] 0.5 - 2.2 mmol/L 06/10/2024 5:50 PM [facility] Blood Gas Source Venous 06/10/20 5:50 PM [facility] Blood VENOUS BLOOD SPECIMEN / Unknown Blood Gas Venous / Unknown 06/10/2024 5:42 PM EST 06/10/2024 5:47 PM EST Melida Valdes MD CHEMISTRY ORDERABLES [facility] [place] [place] [address] * POC, GLUCOSE (06/10/2024 5:35 PM EST) [facility] Signature Glucometer, POC 123 65 - 199 mg/dL 06/10/2024 5:35 PM EST [facility] Comment:Supplemental ranges: <140 mg/dL before meals <180 mg/dL all other times of the day. Blood CAPILLARY BLOOD / Unknown 06/10/2024 5:35 PM EST 06/10/2024 5:35 PM EST Melida Valdes MD POINT OF CARE TEST O RDERABLES [facility] [place] [place] [address] * (ABNORMAL) POC, GLUCOSE (06/10/2024 11:25 AM EST) Glucometer, POC 216(H) 65 - 199 mg/dL 06/10/2024 11:25 AM EST [facility] Comment:Supplemental ranges: <140 mg/dL before meals <180 mg/dL all other times of the day. Blood CAPILLARY BLOOD / Unknown 06/10/2024 11:25 AM EST 06/10/2024 11:25 AM EST Melida Valdes MD POINT OF CARE TEST O NIKA Performing Organization Address City/[facility]/ZIP Co de Phone Number [facility] [place] [place] [address] * (ABNORMAL) POC, GLUCOSE (06/10/2024 7:46 AM EST) Glucometer, POC 206(H) 65 - 199 mg/dL 06/10/2024 7:46 AM EST [facility] Comment:Supplemental ranges: <140 mg/dL before meals <180 mg/dL all other times of the day. Blood CAPILLARY BLOOD / Unknown 06/10/2024 7:46 AM EST 06/10/2024 7:46 AM EST Melida Valdes MD POINT OF CARE TEST O NIKA [facility] [place] [place] [address] * POC, GLUCOSE (06/10/2024 4:23 AM EST) Glucometer, POC 154 65 - 199 mg/dL 06/10/2024 4:24 AM EST [facility] Comment:Supplemental ranges: <140 mg/dL before meals <180 mg/dL all other times of the day. Blood CAPILLARY BLOOD / Unknown 06/10/2024 4:23 AM EST 06/10/2024 4:24 AM EST Melida Valdes MD POINT OF CARE TEST O RDERABLES [facility] [place] [place] [address] * (ABNORMAL) CBC (with Diff) (06/10/2024 1:55 AM EST) White Blood Cell 9.00 4.00 - 9.50 x10(3)/mc L 06/10/2024 2:14 AM [facility] Red Blood Cell 5.03 4.58 - 5.54 x10(6)/mc L 06/10/2024 2:14 AM [facility] Hemoglobin 14.9 13.7 - 16.5 g/dL 06/10/2024 2:14 AM [facility] Hematocrit 46.4 40.5 - 48.5 % 06/10/2024 2:14 AM [facility] Mean Cell Volume 92.2 82.9 - 93.1 fL 06/10/2024 2:14 AM [facility] Mean Cell Hemoglobin 29.6 27.5 - 32.1 pg 06/10/2024 2:14 AM [facility] Mean Cell Hemoglobin Concentration 32.1 32.0 - 35.7 g/dL 06/10/2024 2:14 AM [facility] Platelet 191 145 - 357 x10(3)/mc L 06/10/2024 2:14 AM [facility] Mean Platelet Volume 9.7 7.6 - 12.9 fL 06/10/2024 2:14 AM [facility] RDW Standard Deviation 47.4(H) 36.0 - 45.0 fL 06/10/2024 2:14 AM [facility] RDW coefficient of variation 14.1(H) 11.4 - 13.8 % 06/10/2024 2:14 AM [facility] NRBC% auto 0.0 % 06/10/2024 2:14 AM [facility] NRBC Absolute <0.01 <0.01 x10(3)/mc L 06/10/2024 2:14 AM [facility] Neutrophil % 48.7 % 06/10/2024 2:14 AM [facility] Neutrophil Absolute (ANC) - Automated 4.39 1.70 - 6.10 x10(3)/mc L 06/10/2024 2:14 AM [facility] Lymph % 34.9 % 06/10/2024 2:14 AM [facility] Lymph Absolute 3.14 0.90 - 3.20 x10(3)/mc L 06/10/2024 2:14 AM [facility] Monocyte % 11.2 % 06/10/2024 2:14 AM [facility] Monocyte Absolute 1.01(H) 0.30 - 0.90 x10(3)/mc L 06/10/2024 2:14 AM [facility] Eos % 3.6 % 06/10/2024 2:14 AM [facility] Eos Absolute 0.32 0.00 - 0.40 x10(3)/mc L 06/10/2024 2:14 AM [facility] Basophil % 1.0 % 06/10/2024 2:14 AM [facility] Baso Absolute 0.09 0.00 - 0.10 x10(3)/mc L 06/10/2024 2:14 AM [facility] Immature Gran % 0.6 % 2:14 AM [facility] Immature Gran Absolute 0.05(H) 0.00 - 0.04 x10(3)/mc L 06/10/2024 2:14 AM [facility] Blood VENOUS BLOOD SPECIMEN / Unknown Venipuncture / Unknown 06/10/2024 1:55 AM EST 06/10/2024 2:05 AM EST Shahnaz Scanlon MD HEMATOLOGY ORDERABLE S [facility] [place] [place] [address] * Magnesium (06/10/2024 1:55 AM EST) Pathologist [facility] Magnesium 0.83 0.69 - 1.07 mMol/L 06/10/2024 2:37 AM [facility] Blood VENOUS BLOOD SPECIMEN / Unknown Venipuncture / Unknown 06/10/2024 1:55 AM EST 06/10/2024 2:05 AM EST Shahnaz Scanlon MD CHEMISTRY ORDERABLES Performing Organization Address City/[facility]/ZIP Co de Phone Number [facility] [place] [address] * (ABNORMAL) Basic Metabolic Panel (06/10/2024 1:55 AM EST) [facility] Glucose 140 65 - 199 mg/dL 06/10/2024 2:37 AM [facility] Comment:Glucose Concentratio n >=200 mg/dL plus symptoms is consistent with Diabetes Mellitus. Blood Urea Nitrogen 24(H) 10 - 20 mg/dL 06/10/2024 2:37 AM [facility] Creatinine 1.06 0.80 - 1.50 mg/dL 06/10/2024 2:37 AM [facility] Sodium 138 135 - 145 mMol/L 06/10/2024 2:37 AM [facility] Potassium 4.1 3.5 - 5.0 mMol/L 06/10/2024 2:37 AM [facility] Chloride 100 98 - 107 mMol/L 06/10/2024 2:37 AM [facility] Carbon Dioxide 25 22 - 31 mMol/L 06/10/2024 2:37 AM [facility] Anion Gap 13 5 - 15 mMol/L 06/10/2024 2:37 AM [facility] Calcium 9.5 8.5 - 10.5 mg/dL 06/10/2024 2:37 AM EST [facility] Est Glomerular Filtration Rate - Male 77 mL/min/1. 73 m?? 06/10/2024 2:37 AM EST [facility] Comment: This patient's estimated [...] AM EST Shahnaz Scanlon MD CHEMISTRY ORDERABLES [facility] [place] [phone] * Heparin (unfractionated) Level (06/10/2024 1:54 AM EST) UF Heparin 0.56 IU/mL 06/10/2024 2:41 AM EST [facility] Comment: Heparin (anti-Xa) levels [...] MD HEMATOLOGY ORDERABLE S Performing Organization Address City/[facility]/ZIP Co de Phone Number [facility] [place] [place] [address] * POC, GLUCOSE (06/10/2024 12:05 AM EST) Glucometer, POC 125 65 - 199 mg/dL 06/10/2024 12:05 AM EST [facility] Comment:Supplemental ranges: <140 mg/dL before meals <180 mg/dL all other times of the day. Blood CAPILLARY BLOOD / Unknown 06/10/2024 12:05 AM EST 06/10/2024 12:05 AM EST Melida Valdes MD POINT OF CARE TEST Abimael MAHER Performing Organization Address [facility] Co de Phone Number [facility] [place] [address] * POC, GLUCOSE (06/09/2024 8:36 PM EST) Glucometer, POC 197 65 - 199 mg/dL 06/09/2024 8:36 PM EST [facility] Comment:Supplemental ranges: <140 mg/dL before meals <180 mg/dL all other times of the day. Blood CAPILLARY BLOOD / Unknown 06/09/2024 8:36 PM EST 06/09/2024 8:36 PM EST Melida Valdes MD POINT OF CARE TEST O NIKA [facility] [place] [place] [address] * POC, GLUCOSE (06/09/2024 5:27 PM EST) Glucometer, POC 174 65 - 199 mg/dL 06/09/2024 5:28 PM EST [facility] Comment:Supplemental ranges: <140 mg/dL before meals <180 mg/dL all other times of the day. Blood CAPILLARY BLOOD / Unknown 06/09/2024 5:27 PM EST 06/09/2024 5:28 PM EST Melida Valdes MD POINT OF CARE TEST O NIKA [facility] [place] [place] [address] * (ABNORMAL) POC, GLUCOSE (06/09/2024 11:52 AM EST) Glucometer, POC 211(H) 65 - 199 mg/dL 06/09/2024 11:52 AM EST [facility] Comment:Supplemental ranges: <140 mg/dL before meals <180 mg/dL all other times of the day. Blood CAPILLARY BLOOD / Unknown 06/09/2024 11:52 AM EST 06/09/2024 11:52 AM EST Melida Valdes MD POINT OF CARE TEST O NIKA Performing Organization Address City/[facility]/ZIP Co de Phone Number [facility] [place] [address] * Potassium (06/09/2024 8:25 AM EST) Pathologist [facility] Potassium 4.6 3.5 - 5.0 mMol/L 06/09/2024 10:09 AM EST [facility] Blood VENOUS BLOOD SPECIMEN / Unknown Venipuncture / Unknown 06/09/2024 8:25 AM EST 06/09/2024 8:42 AM EST Shahnaz Scanlon MD CHEMISTRY ORDERABLES [facility] [place] [place] [address] * (ABNORMAL) POC, GLUCOSE (06/09/2024 8:10 AM EST) Glucometer, POC 209(H) 65 - 199 mg/dL 06/09/2024 8:10 AM EST [facility] Comment:Supplemental ranges: <140 mg/dL before meals <180 mg/dL all other times of the day. Blood CAPILLARY BLOOD / Unknown 06/09/2024 8:10 AM EST 06/09/2024 8:11 AM EST Melida Valdes MD POINT OF CARE TEST O NIKA Performing Organization Address [facility] Co de Phone Number [facility] [place] [place] [address] * POC, GLUCOSE (06/09/2024 4:40 AM EST) Glucometer, POC 131 65 - 199 mg/dL 06/09/2024 4:40 AM EST [facility] Comment:Supplemental ranges: <140 mg/dL before meals <180 mg/dL all other times of the day. Blood CAPILLARY BLOOD / Unknown 06/09/2024 4:40 AM EST 06/09/2024 4:41 AM EST Melida Valdes MD POINT OF CARE TEST Abimael MAHER Performing Organization Address [facility] Co de Phone Number [facility] [place] [place] [address] * Heparin (unfractionated) Level (06/09/2024 2:12 AM EST) UF Heparin 0.55 IU/mL 06/09/2024 2:33 AM EST [facility] Comment: Heparin (anti-Xa) levels [...] EST Shahnaz Scanlon MD HEMATOLOGY ORDERABLE S [facility] [place] [place] [address] * (ABNORMAL) CBC (with Diff) (06/09/2024 2:12 AM EST) White Blood Cell 9.80(H) 4.00 - 9.50 x10(3)/mc L 06/09/2024 2:44 AM [facility] Red Blood Cell 5.18 4.58 - 5.54 x10(6)/mc L 06/09/2024 2:44 AM [facility] Hemoglobin 15.5 13.7 - 16.5 g/dL 06/09/2024 2:44 AM [facility] Hematocrit 47.4 40.5 - 48.5 % 06/09/2024 2:44 AM [facility] Mean Cell Volume 91.5 82.9 - 93.1 fL 06/09/2024 2:44 AM [facility] Mean Cell Hemoglobin 29.9 27.5 - 32.1 pg 06/09/2024 2:44 AM [facility] Mean Cell Hemoglobin Concentration 32.7 32.0 - 35.7 g/dL 06/09/2024 2:44 AM [facility] Platelet 205 145 - 357 x10(3)/mc L 06/09/2024 2:44 AM [facility] Mean Platelet Volume 9.7 7.6 - 12.9 fL 06/09/2024 2:44 AM [facility] RDW Standard Deviation 47.7(H) 36.0 - 45.0 fL 06/09/2024 2:44 AM [facility] RDW coefficient of variation 14.1(H) 11.4 - 13.8 % 06/09/2024 2:44 AM [facility] NRBC% auto 0.0 % 06/09/2024 2:44 AM [facility] NRBC Absolute <0.01 <0.01 x10(3)/mc L 06/09/2024 2:44 AM [facility] Neutrophil % 53.0 % 06/09/2024 2:44 AM [facility] Neutrophil Absolute (ANC) - Automated 5.19 1.70 - 6.10 x10(3)/mc L 06/09/2024 2:44 AM [facility] Lymph % 31.6 % 06/09/2024 2:44 AM [facility] Lymph Absolute 3.10 0.90 - 3.20 x10(3)/mc L 06/09/2024 2:44 AM [facility] Monocyte % 11.0 % 06/09/2024 2:44 AM [facility] Monocyte Absolute 1.08(H) 0.30 - 0.90 x10(3)/mc L 06/09/2024 2:44 AM [facility] Eos % 2.9 % 06/09/2024 2:44 AM [facility] Eos Absolute 0.28 0.00 - 0.40 x10(3)/mc L 06/09/2024 2:44 AM [facility] Basophil % 0.9 % 06/09/2024 2:44 AM [facility] Baso Absolute 0.09 0.00 - 0.10 x10(3)/mc L 06/09/2024 2:44 AM [facility] Immature Gran % 0.6 % 2:44 AM EST [facility] Immature Gran Absolute 0.06(H) 0.00 - 0.04 x10(3)/mc L 06/09/2024 2:44 AM [facility] Blood VENOUS BLOOD SPECIMEN / Unknown Venipuncture / Unknown 06/09/2024 2:12 AM EST 06/09/2024 2:21 AM EST Shahnaz Scanlon MD HEMATOLOGY ORDERABLE S Performing Organization Address [facility] Co de Phone Number [facility] [place] [place] [address] * Magnesium (06/09/2024 2:12 AM EST) Magnesium 0.83 0.69 - 1.07 mMol/L 06/09/2024 2:52 AM [facility] Blood VENOUS BLOOD SPECIMEN / Unknown Venipuncture / Unknown 06/09/2024 2:12 AM EST 06/09/2024 2:22 AM EST Shahnaz Scanlon MD CHEMISTRY ORDERABLES Performing Organization Address [facility] Co de Phone Number [facility] [place] [address] * (ABNORMAL) Basic Metabolic Panel (06/09/2024 2:12 AM EST) Glucose 147 65 - 199 mg/dL 06/09/2024 2:52 AM [facility] Comment:Glucose Concentratio n >=200 mg/dL plus symptoms is consistent with Diabetes Mellitus. Blood Urea Nitrogen 24(H) 10 - 20 mg/dL 06/09/2024 2:52 AM [facility] Creatinine 1.11 0.80 - 1.50 mg/dL 06/09/2024 2:52 AM [facility] Sodium 136 135 - 145 mMol/L 06/09/2024 2:52 AM [facility] Potassium 3.9 3.5 - 5.0 mMol/L 06/09/2024 2:52 AM EST [facility] Chloride 98 98 - 107 mMol/L 06/09/2024 2:52 AM [facility] Carbon Dioxide 27 22 - 31 mMol/L 06/09/2024 2:52 AM [facility] Anion Gap 11 5 - 15 mMol/L 06/09/2024 2:52 AM [facility] Calcium 9.7 8.5 - 10.5 mg/dL 06/09/2024 2:52 AM [facility] Est Glomerular Filtration Rate - Male 73 mL/min/1. 73 m?? 06/09/2024 2:52 AM [facility] Comment: This patient's [...] AM EST Shahnaz Scanlon MD CHEMISTRY ORDERABLES [facility] [place] [address] * POC, GLUCOSE (06/09/2024 12:34 AM EST) Glucometer, POC 186 65 - 199 mg/dL 06/09/2024 12:34 AM [facility] Comment:Supplemental ranges: <140 mg/dL before meals <180 mg/dL all other times of the day. Blood CAPILLARY BLOOD / Unknown 06/09/2024 12:34 AM EST 06/09/2024 12:34 AM EST Melida Valdes MD POINT OF CARE TEST O NIKA Performing Organization Address City/[facility]/ZIP Co de Phone Number [facility] [place] [address] * POC, GLUCOSE (06/08/2024 8:27 PM EST) Glucometer, POC 176 65 - 199 mg/dL 06/08/2024 8:28 PM EST [facility] Comment:Supplemental ranges: <140 mg/dL before meals <180 mg/dL all other times of the day. Blood CAPILLARY BLOOD / Unknown 06/08/2024 8:27 PM EST 06/08/2024 8:28 PM EST Melida Valdes MD POINT OF CARE TEST O NIKA Performing Organization Address [facility] Co de Phone Number [facility] [place] [address] * POC, GLUCOSE (06/08/2024 4:16 PM EST) Glucometer, POC 159 65 - 199 mg/dL 06/08/2024 4:16 PM EST [facility] Comment:Supplemental ranges: <140 mg/dL before meals <180 mg/dL all other times of the day. Blood CAPILLARY BLOOD / Unknown 06/08/2024 4:16 PM EST 06/08/2024 4:16 PM EST Melida Valdes MD POINT OF CARE TEST O NIKA Performing Organization Address City/[facility] Co de Phone Number [facility] [place] [address] * (ABNORMAL) POC, GLUCOSE (06/08/2024 12:35 PM EST) Glucometer, POC 226(H) 65 - 199 mg/dL 06/08/2024 12:35 PM EST [facility] Comment:Supplemental ranges: <140 mg/dL before meals <180 mg/dL all other times of the day. Blood CAPILLARY BLOOD / Unknown 06/08/2024 12:35 PM EST 06/08/2024 12:35 PM EST Melida Valdes MD POINT OF CARE TEST O NIKA Performing Organization Address City/[facility] Co de Phone Number [facility] [place] [address] * POC, GLUCOSE (06/08/2024 8:10 AM EST) Glucometer, POC 190 65 - 199 mg/dL 06/08/2024 8:14 AM EST [facility] Comment:Supplemental ranges: <140 mg/dL before meals <180 mg/dL all other times of the day. Blood CAPILLARY BLOOD / Unknown 06/08/2024 8:10 AM EST 06/08/2024 8:14 AM EST Melida Valdes MD POINT OF CARE TEST O NIKA Performing Organization Address [facility] Co de Phone Number [facility] [place] [address] * POC, GLUCOSE (06/08/2024 4:09 AM EST) Glucometer, POC 151 65 - 199 mg/dL 06/08/2024 4:10 AM EST [facility] Comment:Supplemental ranges: <140 mg/dL before meals <180 mg/dL all other times of the day. Blood CAPILLARY BLOOD / Unknown 06/08/2024 4:09 AM EST 06/08/2024 4:10 AM EST Melida Valdes MD POINT OF CARE TEST O NIKA Performing Organization Address City/[facility] Co de Phone Number [facility] [place] [address] * Heparin (unfractionated) Level (06/08/2024 3:21 AM EST) UF Heparin 0.46 IU/mL 06/08/2024 3:41 AM [facility] Comment: Heparin (anti-Xa) [...] MD HEMATOLOGY ORDERABLE S Performing Organization Address City/State/[facility] Co de Phone Number [facility] [place] [address] * (ABNORMAL) CBC (with Diff) (06/08/2024 3:21 AM EST) White Blood Cell 9.92(H) 4.00 - 9.50 x10(3)/mc L 06/08/2024 3:34 AM [facility] Red Blood Cell 5.09 4.58 - 5.54 x10(6)/mc L 06/08/2024 3:34 AM [facility] Hemoglobin 15.1 13.7 - 16.5 g/dL 06/08/2024 3:34 AM [facility] Hematocrit 46.7 40.5 - 48.5 % 06/08/2024 3:34 AM [facility] Mean Cell Volume 91.7 82.9 - 93.1 fL 06/08/2024 3:34 AM [facility] Mean Cell Hemoglobin 29.7 27.5 - 32.1 pg 06/08/2024 3:34 AM [facility] Mean Cell Hemoglobin Concentration 32.3 32.0 - 35.7 g/dL 06/08/2024 3:34 AM [facility] Platelet 203 145 - 357 x10(3)/mc L 06/08/2024 3:34 AM [facility] Mean Platelet Volume 9.4 7.6 - 12.9 fL 06/08/2024 3:34 AM [facility] RDW Standard Deviation 46.9(H) 36.0 - 45.0 fL 06/08/2024 3:34 AM [facility] RDW coefficient of variation 13.8 11.4 - 13.8 % 06/08/2024 3:34 AM [facility] NRBC% auto 0.0 % 06/08/2024 3:34 AM [facility] NRBC Absolute <0.01 <0.01 x10(3)/mc L 06/08/2024 3:34 AM [facility] Neutrophil % 56.8 % 06/08/2024 3:34 AM [facility] Neutrophil Absolute (ANC) - Automated 5.63 1.70 - 6.10 x10(3)/mc L 06/08/2024 3:34 AM [facility] Lymph % 27.3 % 06/08/2024 3:34 AM [facility] Lymph Absolute 2.71 0.90 - 3.20 x10(3)/mc L 06/08/2024 3:34 AM [facility] Monocyte % 11.2 % 06/08/2024 3:34 AM [facility] Monocyte Absolute 1.11(H) 0.30 - 0.90 x10(3)/mc L 06/08/2024 3:34 AM [facility] Eos % 3.4 % 06/08/2024 3:34 AM [facility] Eos Absolute 0.34 0.00 - 0.40 x10(3)/mc L 06/08/2024 3:34 AM EST [facility] Basophil % 0.8 % 06/08/2024 3:34 AM [facility] Baso Absolute 0.08 0.00 - 0.10 x10(3)/mc L 06/08/2024 3:34 AM [facility] Immature Gran % 0.5 % 3:34 AM [facility] Immature Gran Absolute 0.05(H) 0.00 - 0.04 x10(3)/mc L 06/08/2024 3:34 AM [facility] Blood VENOUS BLOOD SPECIMEN / Unknown Venipuncture / Unknown 06/08/2024 3:21 AM EST 06/08/2024 3:27 AM EST Shahnaz Scanlon MD HEMATOLOGY ORDERABLE S [facility] [place] [place] [address] * Magnesium (06/08/2024 3:21 AM EST) Magnesium 0.84 0.69 - 1.07 mMol/L 06/08/2024 3:59 AM [facility] Blood VENOUS BLOOD SPECIMEN / Unknown Venipuncture / Unknown 06/08/2024 3:21 AM EST 06/08/2024 3:27 AM EST Shahnaz Scanlon MD CHEMISTRY ORDERABLES [facility] [place] [place] [address] * (ABNORMAL) Basic Metabolic Panel (06/08/2024 3:21 AM EST) Glucose 173 65 - 199 mg/dL 06/08/2024 3:59 AM EST [facility] Comment:Glucose Concentratio n >=200 mg/dL plus symptoms is consistent with Diabetes Mellitus. Blood Urea Nitrogen 25(H) 10 - 20 mg/dL 06/08/2024 3:59 AM [facility] Creatinine 1.09 0.80 - 1.50 mg/dL 06/08/2024 3:59 AM [facility] Sodium 135 135 - 145 mMol/L 06/08/2024 3:59 AM [facility] Potassium 4.2 3.5 - 5.0 mMol/L 06/08/2024 3:59 AM [facility] Chloride 98 98 - 107 mMol/L 06/08/2024 3:59 AM [facility] Carbon Dioxide 25 22 - 31 mMol/L 06/08/2024 3:59 AM [facility] Anion Gap 12 5 - 15 mMol/L 06/08/2024 3:59 AM [facility] Calcium 9.4 8.5 - 10.5 mg/dL 06/08/2024 3:59 AM [facility] Est Glomerular Filtration Rate - Male 74 mL/min/1. 73 m?? 06/08/2024 3:59 AM [facility] Comment: This patient's [...] AM EST Shahnaz Scanlon MD CHEMISTRY ORDERABLES [facility] [place] [place] [address] * POC, GLUCOSE (06/07/2024 11:57 PM EST) Glucometer, POC 188 65 - 199 mg/dL 06/07/2024 11:57 PM EST [facility] Comment:Supplemental ranges: <140 mg/dL before meals <180 mg/dL all other times of the day. Blood CAPILLARY BLOOD / Unknown 06/07/2024 11:57 PM EST 06/07/2024 11:58 PM EST Melida Valdes MD POINT OF CARE TEST O RDERABLES Performing Organization Address City/[facility]/ZIP Co de Phone Number [facility] [place] [place] [address] * POC, GLUCOSE (06/07/2024 8:05 PM EST) Glucometer, POC 118 65 - 199 mg/dL 06/07/2024 8:06 PM EST [facility] Comment:Supplemental ranges: <140 mg/dL before meals <180 mg/dL all other times of the day. Blood CAPILLARY BLOOD / Unknown 06/07/2024 8:05 PM EST 06/07/2024 8:06 PM EST Melida Valdes MD POINT OF CARE TEST O RDERAPIETER Performing Organization Address City/[facility]/ZIP Co de Phone Number [facility] [place] [place] [address] * Potassium (06/07/2024 5:22 PM EST) Potassium 4.6 3.5 - 5.0 mMol/L 06/07/2024 5:59 PM EST [facility] Blood VENOUS BLOOD SPECIMEN / Unknown Venipuncture / Unknown 06/07/2024 5:22 PM EST 06/07/2024 5:26 PM EST Shahnaz Scanlon MD CHEMISTRY ORDERABLES [facility] [place] [place] [address] * POC, GLUCOSE (06/07/2024 4:31 PM EST) Glucometer, POC 174 65 - 199 mg/dL 06/07/2024 4:34 PM EST [facility] Comment:Supplemental ranges: <140 mg/dL before meals <180 mg/dL all other times of the day. Blood CAPILLARY BLOOD / Unknown 06/07/2024 4:31 PM EST 06/07/2024 4:34 PM EST Melida Valdes MD POINT OF CARE TEST O NIKA [facility] [place] [place] [address] * MRI Cardiac Morphology Function wwo Contrast (06/07/2024 1:10 PM EST) WORKSTATION ID [id number] DH RAD Anatomical Region Laterality Modality Magnetic [...] - Mildly dilated left ventricle size with [id number] decreased LV systolic function. ??LV ejection fraction [...] have questions please contact the health career advisor that requested your imaging first. ? Narrative [...] VENTRICLE: Mildly dilated left ventricle size with upzgvkcz-[id number] decreased LV systolic function. ??LV ejection fraction [...] VENTRICLE: Mildly dilated left ventricle size with tizwyoqr-xt-mgsckmne decreasedLV systolic function. LV ejection fraction is [...] - Mildly dilated left ventricle size with atmmmcln-pj-pcugrpsr decreasedLV systolic function. LV ejection fraction is [...] who have questions please contactthe health career advisor that requested your imaging first. Delroy Fofana MD IMG MRI ORDERABLES * (ABNORMAL) POC, GLUCOSE (06/07/2024 11:05 AM EST) Glucometer, POC 221(H) 65 - 199 mg/dL 06/07/2024 11:06 AM EST [facility] Comment:Supplemental ranges: <140 mg/dL before meals <180 mg/dL all other times of the day. Blood CAPILLARY BLOOD / Unknown 06/07/2024 11:05 AM EST 06/07/2024 11:06 AM EST Melida Valdes MD POINT OF CARE TEST O NIKA [facility] [place] [place] [address] * (ABNORMAL) POC, GLUCOSE (06/07/2024 11:03 AM EST) Glucometer, POC 250(H) 65 - 199 mg/dL 06/07/2024 11:04 AM EST [facility] Comment:Supplemental ranges: <140 mg/dL before meals <180 mg/dL all other times of the day. Blood CAPILLARY BLOOD / Unknown 06/07/2024 11:03 AM EST 06/07/2024 11:04 AM EST Melida Valdes MD POINT OF CARE TEST Abimael MAHER [facility] [place] [address] * Potassium (06/07/2024 9:44 AM EST) Potassium 4.7 3.5 - 5.0 mMol/L 06/07/2024 10:23 AM EST [facility] Blood VENOUS BLOOD SPECIMEN / Unknown Venipuncture / Unknown 06/07/2024 9:44 AM EST 06/07/2024 9:57 AM EST Shahnaz Scanlon MD CHEMISTRY ORDERABLES Performing Organization Address [facility] Co de Phone Number [facility] [place] [place] [address] * POC, GLUCOSE (06/07/2024 7:45 AM EST) Glucometer, POC 175 65 - 199 mg/dL 06/07/2024 7:45 AM EST [facility] Comment:Supplemental ranges: <140 mg/dL before meals <180 mg/dL all other times of the day. Blood CAPILLARY BLOOD / Unknown 06/07/2024 7:45 AM EST 06/07/2024 7:46 AM EST Melida Valdes MD POINT OF CARE TEST O RDERABLES Performing Organization Address [facility] de Phone Number [facility] [place] [place] [address] * XR Chest PA & Lateral (Generic) (06/07/2024 7:03 AM EST) WORKSTATION ID [id number] DH RAD Anatomical Region Laterality Modality Chest [...] have questions please contact the health career advisor that requested your imaging first. ? Electronically signed by: Stuart Aponte MD, [facility] ??([phone]), at 06/07/2024 10:45 AM Narrative 06/07/2024 10:45 [...] who have questions please contactthe health career advisor that requested your imaging first. Shahnaz Scanlon MD IMG DX ORDERABLES * POC, GLUCOSE (06/07/2024 4:25 AM EST) [facility] Glucometer, POC 127 65 - 199 mg/dL 06/07/2024 4:26 AM EST [facility] Comment:Supplemental ranges: <140 mg/dL before meals <180 mg/dL all other times of the day. Blood CAPILLARY BLOOD / Unknown 06/07/2024 4:25 AM EST 06/07/2024 4:26 AM EST Melida Valdes MD POINT OF CARE TEST O RDERABLES Performing Organization Address [facility]/ZIP Co de Phone Number [facility] [place] [address] * Heparin (unfractionated) Level (06/07/2024 2:41 AM EST) UF Heparin 0.45 IU/mL 06/07/2024 3:03 AM EST [facility] Comment: Heparin (anti-Xa) levels [...] MD HEMATOLOGY ORDERABLE S Performing Organization Address City/[facility]/ZIP Co de Phone Number [facility] [place] [place] [address] * (ABNORMAL) CBC (with Diff) (06/07/2024 2:41 AM EST) White Blood Cell 10.06(H) 4.00 - 9.50 x10(3)/mc L 06/07/2024 2:58 AM EST [facility] Red Blood Cell 5.02 4.58 - 5.54 x10(6)/mc L 06/07/2024 2:58 AM [facility] Hemoglobin 14.8 13.7 - 16.5 g/dL 06/07/2024 2:58 AM [facility] Hematocrit 46.2 40.5 - 48.5 % 06/07/2024 2:58 AM [facility] Mean Cell Volume 92.0 82.9 - 93.1 fL 06/07/2024 2:58 AM [facility] Mean Cell Hemoglobin 29.5 27.5 - 32.1 pg 06/07/2024 2:58 AM [facility] Mean Cell Hemoglobin Concentration 32.0 32.0 - 35.7 g/dL 06/07/2024 2:58 AM [facility] Platelet 202 145 - 357 x10(3)/mc L 06/07/2024 2:58 AM [facility] Mean Platelet Volume 9.6 7.6 - 12.9 fL 06/07/2024 2:58 AM [facility] RDW Standard Deviation 46.3(H) 36.0 - 45.0 fL 06/07/2024 2:58 AM [facility] RDW coefficient of variation 13.8 11.4 - 13.8 % 06/07/2024 2:58 AM [facility] NRBC% auto 0.0 % 06/07/2024 2:58 AM [facility] NRBC Absolute <0.01 <0.01 x10(3)/mc L 06/07/2024 2:58 AM [facility] Neutrophil % 55.9 % 06/07/2024 2:58 AM [facility] Neutrophil Absolute (ANC) - Automated 5.62 1.70 - 6.10 x10(3)/mc L 06/07/2024 2:58 AM [facility] Lymph % 28.3 % 06/07/2024 2:58 AM [facility] Lymph Absolute 2.85 0.90 - 3.20 x10(3)/mc L 06/07/2024 2:58 AM EST [facility] Monocyte % 10.8 % 06/07/2024 2:58 AM [facility] Monocyte Absolute 1.09(H) 0.30 - 0.90 x10(3)/mc L 06/07/2024 2:58 AM EST [facility] Eos % 3.6 % 06/07/2024 2:58 AM EST [facility] Eos Absolute 0.36 0.00 - 0.40 x10(3)/mc L 06/07/2024 2:58 AM EST [facility] Basophil % 0.8 % 06/07/2024 2:58 AM [facility] Baso Absolute 0.08 0.00 - 0.10 x10(3)/mc L 06/07/2024 2:58 AM [facility] Immature Gran % 0.6 % 2:58 AM [facility] Immature Gran Absolute 0.06(H) 0.00 - 0.04 x10(3)/mc L 06/07/2024 2:58 AM [facility] Blood VENOUS BLOOD SPECIMEN / Unknown Venipuncture / Unknown 06/07/2024 2:41 AM EST 06/07/2024 2:52 AM EST Shahnaz Scanlon MD HEMATOLOGY ORDERABLE S [facility] [place] [address] * Magnesium (06/07/2024 2:41 AM EST) Magnesium 0.92 0.69 - 1.07 mMol/L 06/07/2024 3:25 AM EST [facility] Blood VENOUS BLOOD SPECIMEN / Unknown Venipuncture / Unknown 06/07/2024 2:41 AM EST 06/07/2024 2:51 AM EST Shahnaz Scanlon MD CHEMISTRY ORDERABLES [facility] [place] [place] [address] * (ABNORMAL) Basic Metabolic Panel (06/07/2024 2:41 AM EST) Glucose 140 65 - 199 mg/dL 06/07/2024 3:25 AM [facility] Comment:Glucose Concentratio n >=200 mg/dL plus symptoms is consistent with Diabetes Mellitus. Blood Urea Nitrogen 26(H) 10 - 20 mg/dL 06/07/2024 3:25 AM [facility] Creatinine 1.06 0.80 - 1.50 mg/dL 06/07/2024 3:25 AM [facility] Sodium 136 135 - 145 mMol/L 06/07/2024 3:25 AM [facility] Potassium 3.8 3.5 - 5.0 mMol/L 06/07/2024 3:25 AM [facility] Chloride 98 98 - 107 mMol/L 06/07/2024 3:25 AM [facility] Carbon Dioxide 28 22 - 31 mMol/L 06/07/2024 3:25 AM [facility] Anion Gap 10 5 - 15 mMol/L 06/07/2024 3:25 AM [facility] Calcium 9.4 8.5 - 10.5 mg/dL 06/07/2024 3:25 AM [facility] Est Glomerular Filtration Rate - Male 77 mL/min/1. 73 m?? 06/07/2024 3:25 AM EST [facility] Comment: This patient's estimated [...] Scanlon MD CHEMISTRY ORDERABLES Performing Organization Address [facility] Co de Phone Number [facility] [place] [address] * POC, GLUCOSE (06/07/2024 12:08 AM EST) Glucometer, POC 182 65 - 199 mg/dL 06/07/2024 12:09 AM EST [facility] Comment:Supplemental ranges: <140 mg/dL before meals <180 mg/dL all other times of the day. Blood CAPILLARY BLOOD / Unknown 06/07/2024 12:08 AM EST 06/07/2024 12:09 AM EST Melida Valdes MD POINT OF CARE TEST O RDBECKIE Performing Organization Address [facility] Co de Phone Number [facility] [place] [place] [address] * POC, GLUCOSE (06/06/2024 8:18 PM EST) Glucometer, POC 143 65 - 199 mg/dL 06/06/2024 8:19 PM EST [facility] Comment:Supplemental ranges: <140 mg/dL before meals <180 mg/dL all other times of the day. Blood CAPILLARY BLOOD / Unknown 06/06/2024 8:18 PM EST 06/06/2024 8:19 PM EST Melida Valdes MD POINT OF CARE TEST O RDERAPIETER Performing Organization Address [facility] Co de Phone Number [facility] [place] [place] [address] * POC, GLUCOSE (06/06/2024 3:39 PM EST) Glucometer, POC 147 65 - 199 mg/dL 06/06/2024 3:40 PM EST [facility] Comment:Supplemental ranges: <140 mg/dL before meals <180 mg/dL all other times of the day. Blood CAPILLARY BLOOD / Unknown 06/06/2024 3:39 PM EST 06/06/2024 3:40 PM EST Melida Valdes MD POINT OF CARE TEST O RDERABLES Performing Organization Address City/[facility] Co de Phone Number [facility] [place] [address] * Potassium (06/06/2024 2:37 PM EST) Potassium 4.3 3.5 - 5.0 mMol/L 06/06/2024 3:01 PM EST [facility] Blood VENOUS BLOOD SPECIMEN / Unknown Venipuncture / Unknown 06/06/2024 2:37 PM EST 06/06/2024 2:42 PM EST Shahnaz Scanlon MD CHEMISTRY ORDERABLES Performing Organization Address [facility] Co de Phone Number [facility] [place] [address] * (ABNORMAL) POC, GLUCOSE (06/06/2024 1:39 PM EST) Glucometer, POC 317(H) 65 - 199 mg/dL 06/06/2024 1:40 PM EST [facility] Comment:Supplemental ranges: <140 mg/dL before meals <180 mg/dL all other times of the day. Blood CAPILLARY BLOOD / Unknown 06/06/2024 1:39 PM EST 06/06/2024 1:41 PM EST Melida Valdes MD POINT OF CARE TEST O RDERABLES Performing Organization Address City/[facility]/ZIP Co de Phone Number [facility] [place] [place] [address] * (ABNORMAL) POC, GLUCOSE (06/06/2024 11:34 AM EST) Glucometer, POC 264(H) 65 - 199 mg/dL 06/06/2024 11:35 AM EST [facility] Comment:Supplemental ranges: <140 mg/dL before meals <180 mg/dL all other times of the day. Blood CAPILLARY BLOOD / Unknown 06/06/2024 11:34 AM EST 06/06/2024 11:35 AM EST Melida Valdes MD POINT OF CARE TEST O NIKA Performing Organization Address [facility] Co de Phone Number [facility] [place] [address] * Potassium (06/06/2024 10:17 AM EST) Potassium 4.3 3.5 - 5.0 mMol/L 06/06/2024 10:46 AM EST [facility] Blood VENOUS BLOOD SPECIMEN / Unknown Venipuncture / Unknown 06/06/2024 10:17 AM EST 06/06/2024 10:22 AM EST Shahnaz Scanlon MD CHEMISTRY ORDERABLES Performing Organization Address [facility] de Phone Number [facility] [place] [address] * POC, GLUCOSE (06/06/2024 7:57 AM EST) Glucometer, POC 195 65 - 199 mg/dL 06/06/2024 8:03 AM EST [facility] Comment:Supplemental ranges: <140 mg/dL before meals <180 mg/dL all other times of the day. Blood CAPILLARY BLOOD / Unknown 06/06/2024 7:57 AM EST 06/06/2024 8:03 AM EST Melida Valdes MD POINT OF CARE TEST O NIKA Performing Organization Address City/[facility]/ZIP Co de Phone Number [facility] [place] [address] * POC, GLUCOSE (06/06/2024 6:53 AM EST) Glucometer, POC 187 65 - 199 mg/dL 06/06/2024 6:53 AM EST [facility] Comment:Supplemental ranges: <140 mg/dL before meals <180 mg/dL all other times of the day. Blood CAPILLARY BLOOD / Unknown 06/06/2024 6:53 AM EST 06/06/2024 6:54 AM EST Melida Valdes MD POINT OF CARE TEST O RDERABLES Performing Organization Address City/[facility] Co de Phone Number [facility] [place] [address] * (ABNORMAL) Hemoglobin A1c (06/06/2024 3:33 AM EST) [facility] Hemoglobin A1c 7.1(H) 4.3 - 5.6 % 06/06/2024 1:01 PM EST [facility] Comment: Per ADA guidelines, [...] red blood cell turnover may not be sales representatives of glycemic control. Reference Interval: 4.3 - 5.6% 5.7 - 6.4%: Consistent with prediabetes >=6.5%: Consistent with diagnosis of diabetes mellitus Estimated Average Glucose 157 mg/dL 06/06/2024 1:01 PM EST [facility] Blood VENOUS BLOOD SPECIMEN / Unknown Venipuncture / Unknown 06/06/2024 3:33 AM EST 06/06/2024 3:48 AM EST Alejandra G Merlin VEHICLE CARE SPECIALIST CHEMISTRY ORDERAB LES Performing Organization Address [facility]/ZIP Co de Phone Number [facility] [place] [address] * Heparin (unfractionated) Level (06/06/2024 3:33 AM EST) UF Heparin 0.36 IU/mL 06/06/2024 3:59 AM EST [facility] Comment: Heparin (anti-Xa) levels [...] MD HEMATOLOGY ORDERABLE S Performing Organization Address City/[facility]/ZIP Co de Phone Number [facility] [place] [address] * (ABNORMAL) CBC (with Diff) (06/06/2024 3:33 AM EST) White Blood Cell 9.81(H) 4.00 - 9.50 x10(3)/mc L 06/06/2024 3:54 AM EST [facility] Red Blood Cell 4.91 4.58 - 5.54 x10(6)/mc L 06/06/2024 3:54 AM EST [facility] Hemoglobin 14.6 13.7 - 16.5 g/dL 06/06/2024 3:54 AM [facility] Hematocrit 45.4 40.5 - 48.5 % 06/06/2024 3:54 AM [facility] Mean Cell Volume 92.5 82.9 - 93.1 fL 06/06/2024 3:54 AM [facility] Mean Cell Hemoglobin 29.7 27.5 - 32.1 pg 06/06/2024 3:54 AM [facility] Mean Cell Hemoglobin Concentration 32.2 32.0 - 35.7 g/dL 06/06/2024 3:54 AM [facility] Platelet 199 145 - 357 x10(3)/mc L 06/06/2024 3:54 AM [facility] Mean Platelet Volume 9.5 7.6 - 12.9 fL 06/06/2024 3:54 AM [facility] RDW Standard Deviation 47.2(H) 36.0 - 45.0 fL 06/06/2024 3:54 AM [facility] RDW coefficient of variation 13.9(H) 11.4 - 13.8 % 06/06/2024 3:54 AM [facility] NRBC% auto 0.0 % 06/06/2024 3:54 AM [facility] NRBC Absolute <0.01 <0.01 x10(3)/mc L 06/06/2024 3:54 AM [facility] Neutrophil % 56.8 % 06/06/2024 3:54 AM [facility] Neutrophil Absolute (ANC) - Automated 5.57 1.70 - 6.10 x10(3)/mc L 06/06/2024 3:54 AM [facility] Lymph % 27.6 % 06/06/2024 3:54 AM [facility] Lymph Absolute 2.71 0.90 - 3.20 x10(3)/mc L 06/06/2024 3:54 AM [facility] Monocyte % 11.1 % 06/06/2024 3:54 AM EST [facility] Monocyte Absolute 1.09(H) 0.30 - 0.90 x10(3)/mc L 06/06/2024 3:54 AM [facility] Eos % 3.0 % 06/06/2024 3:54 AM [facility] Eos Absolute 0.29 0.00 - 0.40 x10(3)/mc L 06/06/2024 3:54 AM EST [facility] Basophil % 0.9 % 06/06/2024 3:54 AM [facility] Baso Absolute 0.09 0.00 - 0.10 x10(3)/mc L 06/06/2024 3:54 AM [facility] Immature Gran % 0.6 % 3:54 AM [facility] Immature Gran Absolute 0.06(H) 0.00 - 0.04 x10(3)/mc L 06/06/2024 3:54 AM [facility] Blood VENOUS BLOOD SPECIMEN / Unknown Venipuncture / Unknown 06/06/2024 3:33 AM EST 06/06/2024 3:48 AM EST Shahnaz Scanlon MD HEMATOLOGY ORDERABLE S [facility] [place] [address] * Magnesium (06/06/2024 3:33 AM EST) Magnesium 0.92 0.69 - 1.07 mMol/L 06/06/2024 4:17 AM EST [facility] Blood VENOUS BLOOD SPECIMEN / Unknown Venipuncture / Unknown 06/06/2024 3:33 AM EST 06/06/2024 3:47 AM EST Shahnaz Scanlon MD CHEMISTRY ORDERABLES [facility] [place] [address] * (ABNORMAL) Basic Metabolic Panel (06/06/2024 3:33 AM EST) Glucose 190 65 - 199 mg/dL 06/06/2024 4:17 AM [facility] Comment:Glucose Concentratio n >=200 mg/dL plus symptoms is consistent with Diabetes Mellitus. Blood Urea Nitrogen 27(H) 10 - 20 mg/dL 06/06/2024 4:17 AM [facility] Creatinine 1.12 0.80 - 1.50 mg/dL 06/06/2024 4:17 AM [facility] Sodium 136 135 - 145 mMol/L 06/06/2024 4:17 AM [facility] Potassium 4.0 3.5 - 5.0 mMol/L 06/06/2024 4:17 AM [facility] Chloride 97(L) 98 - 107 mMol/L 06/06/2024 4:17 AM [facility] Carbon Dioxide 26 22 - 31 mMol/L 06/06/2024 4:17 AM [facility] Anion Gap 13 5 - 15 mMol/L 06/06/2024 4:17 AM [facility] Calcium 9.1 8.5 - 10.5 mg/dL 06/06/2024 4:17 AM [facility] Est Glomerular Filtration Rate - Male 72 mL/min/1. 73 m?? 06/06/2024 4:17 AM [facility] Comment: This patient's [...] Scanlon MD CHEMISTRY ORDERABLES Performing Organization Address [facility]/ZIP Co de Phone Number [facility] [place] [address] * (ABNORMAL) POC, GLUCOSE (06/05/2024 10:31 PM EDT) Glucometer, POC 238(H) 65 - 199 mg/dL 06/05/2024 10:31 PM EDT [facility] Comment:Supplemental ranges: <140 mg/dL before meals <180 mg/dL all other times of the day. Blood CAPILLARY BLOOD / Unknown 06/05/2024 10:31 PM EDT 06/05/2024 10:31 PM EDT Melida Valdes MD POINT OF CARE TEST O RDBECKIE Performing Organization Address [facility]/ZIP Co de Phone Number [facility] [place] [address] * (ABNORMAL) POC, GLUCOSE (06/05/2024 4:22 PM EDT) Glucometer, POC 205(H) 65 - 199 mg/dL 06/05/2024 4:22 PM EDT [facility] Comment:Supplemental ranges: <140 mg/dL before meals <180 mg/dL all other times of the day. Blood CAPILLARY BLOOD / Unknown 06/05/2024 4:22 PM EDT 06/05/2024 4:23 PM EDT Melida Valdes MD POINT OF CARE TEST O NIKA [facility] [place] [place] [address] * (ABNORMAL) POC, GLUCOSE (06/05/2024 11:34 AM EDT) Glucometer, POC 211(H) 65 - 199 mg/dL 06/05/2024 11:34 AM EDT [facility] Comment:Supplemental ranges: <140 mg/dL before meals <180 mg/dL all other times of the day. Blood CAPILLARY BLOOD / Unknown 06/05/2024 11:34 AM EDT 06/05/2024 11:34 AM EDT Melida Valdes MD POINT OF CARE TEST O RDBECKIE [facility] [place] [address] * Potassium (06/05/2024 9:04 AM EDT) Potassium 4.3 3.5 - 5.0 mMol/L 06/05/2024 9:50 AM EDT [facility] Blood VENOUS BLOOD SPECIMEN / Unknown Venipuncture / Unknown 06/05/2024 9:04 AM EDT 06/05/2024 9:21 AM EDT Shahnaz Scanlon MD CHEMISTRY ORDERABLES Performing Organization Address [facility] Co de Phone Number [facility] [place] [address] * POC, GLUCOSE (06/05/2024 7:27 AM EDT) Glucometer, POC 166 65 - 199 mg/dL 06/05/2024 7:27 AM EDT [facility] Comment:Supplemental ranges: <140 mg/dL before meals <180 mg/dL all other times of the day. Blood CAPILLARY BLOOD / Unknown 06/05/2024 7:27 AM EDT 06/05/2024 7:27 AM EDT Melida Valdes MD POINT OF CARE TEST O RDERAPIETER Performing Organization Address City/[facility]/ZIP Co de Phone Number [facility] [place] [address] * Heparin (unfractionated) Level (06/05/2024 3:44 AM EDT) Pathologist [facility] UF Heparin 0.44 IU/mL 06/05/2024 4:07 AM EDT [facility] Comment: Heparin (anti-Xa) levels [...] MD HEMATOLOGY ORDERABLE S Performing Organization Address City/State/[facility] Co de Phone Number [facility] [place] [address] * (ABNORMAL) CBC (with Diff) (06/05/2024 3:44 AM EDT) Pathologist [facility] White Blood Cell 10.83(H) 4.00 - 9.50 x10(3)/mc L 06/05/2024 3:56 AM EDT [facility] Red Blood Cell 5.07 4.58 - 5.54 x10(6)/mc L 06/05/2024 3:56 AM EDT [facility] Hemoglobin 15.3 13.7 - 16.5 g/dL 06/05/2024 3:56 AM EDT [facility] Hematocrit 46.8 40.5 - 48.5 % 06/05/2024 3:56 AM [facility] Mean Cell Volume 92.3 82.9 - 93.1 fL 06/05/2024 3:56 AM [facility] Mean Cell Hemoglobin 30.2 27.5 - 32.1 pg 06/05/2024 3:56 AM [facility] Mean Cell Hemoglobin Concentration 32.7 32.0 - 35.7 g/dL 06/05/2024 3:56 AM [facility] Platelet 219 145 - 357 x10(3)/mc L 06/05/2024 3:56 AM [facility] Mean Platelet Volume 9.4 7.6 - 12.9 fL 06/05/2024 3:56 AM [facility] RDW Standard Deviation 46.7(H) 36.0 - 45.0 fL 06/05/2024 3:56 AM [facility] RDW coefficient of variation 13.9(H) 11.4 - 13.8 % 06/05/2024 3:56 AM [facility] NRBC% auto 0.0 % 06/05/2024 3:56 AM [facility] NRBC Absolute <0.01 <0.01 x10(3)/mc L 06/05/2024 3:56 AM [facility] Neutrophil % 61.5 % 06/05/2024 3:56 AM [facility] Neutrophil Absolute (ANC) - Automated 6.65(H) 1.70 - 6.10 x10(3)/mc L 06/05/2024 3:56 AM [facility] Lymph % 24.0 % 06/05/2024 3:56 AM [facility] Lymph Absolute 2.60 0.90 - 3.20 x10(3)/mc L 06/05/2024 3:56 AM [facility] Monocyte % 10.9 % 06/05/2024 3:56 AM [facility] Monocyte Absolute 1.18(H) 0.30 - 0.90 x10(3)/mc L 06/05/2024 3:56 AM EDT [facility] Eos % 2.2 % 06/05/2024 3:56 AM EDT [facility] Eos Absolute 0.24 0.00 - 0.40 x10(3)/mc L 06/05/2024 3:56 AM EDT [facility] Basophil % 0.8 % 06/05/2024 3:56 AM EDT [facility] Baso Absolute 0.09 0.00 - 0.10 x10(3)/mc L 06/05/2024 3:56 AM EDT [facility] Immature Gran % 0.6 % 3:56 AM EDT [facility] Immature Gran Absolute 0.07(H) 0.00 - 0.04 x10(3)/mc L 06/05/2024 3:56 AM EDT [facility] Blood VENOUS BLOOD SPECIMEN / Unknown Venipuncture / Unknown 06/05/2024 3:44 AM EDT 06/05/2024 3:50 AM EDT Shahnaz Scanlon MD HEMATOLOGY ORDERABLE S [facility] [place] [address] * Magnesium (06/05/2024 3:44 AM EDT) Magnesium 0.92 0.69 - 1.07 mMol/L 06/05/2024 4:20 AM EDT [facility] Blood VENOUS BLOOD SPECIMEN / Unknown Venipuncture / Unknown 06/05/2024 3:44 AM EDT 06/05/2024 3:50 AM EDT Shahnaz Scanlon MD CHEMISTRY ORDERABLES [facility] [place] [address] * (ABNORMAL) Basic Metabolic Panel (06/05/2024 3:44 AM EDT) Glucose 155 65 - 199 mg/dL 06/05/2024 4:20 AM [facility] Comment:Glucose Concentratio n >=200 mg/dL plus symptoms is consistent with Diabetes Mellitus. Blood Urea Nitrogen 25(H) 10 - 20 mg/dL 06/05/2024 4:20 AM [facility] Creatinine 1.16 0.80 - 1.50 mg/dL 06/05/2024 4:20 AM [facility] Sodium 136 135 - 145 mMol/L 06/05/2024 4:20 AM [facility] Potassium 3.9 3.5 - 5.0 mMol/L 06/05/2024 4:20 AM [facility] Chloride 95(L) 98 - 107 mMol/L 06/05/2024 4:20 AM [facility] Carbon Dioxide 29 22 - 31 mMol/L 06/05/2024 4:20 AM [facility] Anion Gap 12 5 - 15 mMol/L 06/05/2024 4:20 AM [facility] Calcium 9.2 8.5 - 10.5 mg/dL 06/05/2024 4:20 AM [facility] Est Glomerular Filtration Rate - Male 69 mL/min/1. 73 m?? 06/05/2024 4:20 AM [facility] Comment: This patient's estimated [...] Scanlon MD CHEMISTRY ORDERABLES Performing Organization Address [facility]/ZIP Co de Phone Number [facility] [place] [address] * Potassium (06/04/2024 10:34 PM EDT) Potassium 3.7 3.5 - 5.0 mMol/L 06/04/2024 11:03 PM EDT [facility] Blood VENOUS BLOOD SPECIMEN / Unknown Venipuncture / Unknown 06/04/2024 10:34 PM EDT 06/04/2024 10:39 PM EDT Shahnaz Scanlon MD CHEMISTRY ORDERABLES Performing Organization Address [facility] Co de Phone Number [facility] [place] [address] * POC, GLUCOSE (06/04/2024 7:43 PM EDT) Glucometer, POC 175 65 - 199 mg/dL 06/04/2024 7:43 PM EDT [facility] Comment:Supplemental ranges: <140 mg/dL before meals <180 mg/dL all other times of the day. Blood CAPILLARY BLOOD / Unknown 06/04/2024 7:43 PM EDT 06/04/2024 7:43 PM EDT Melida Valdes MD POINT OF CARE TEST O RDERABLES Performing Organization Address [facility]/ZIP Co de Phone Number [facility] [place] [place] [address] * Potassium (06/04/2024 4:35 PM EDT) Potassium 4.0 3.5 - 5.0 mMol/L 06/04/2024 5:32 PM EDT [facility] Blood VENOUS BLOOD SPECIMEN / Unknown Venipuncture / Unknown 06/04/2024 4:35 PM EDT 06/04/2024 4:40 PM EDT Shahnaz Scanlon MD CHEMISTRY ORDERABLES [facility] [place] [address] * POC, GLUCOSE (06/04/2024 3:26 PM EDT) Glucometer, POC 154 65 - 199 mg/dL 06/04/2024 3:26 PM EDT [facility] Comment:Supplemental ranges: <140 mg/dL before meals <180 mg/dL all other times of the day. Blood CAPILLARY BLOOD / Unknown 06/04/2024 3:26 PM EDT 06/04/2024 3:27 PM EDT Melida Valdes MD POINT OF CARE TEST O RDERABLES [facility] [place] [address] * POC, GLUCOSE (06/04/2024 11:09 AM EDT) Glucometer, POC 188 65 - 199 mg/dL 06/04/2024 11:09 AM EDT [facility] Comment:Supplemental ranges: <140 mg/dL before meals <180 mg/dL all other times of the day. Blood CAPILLARY BLOOD / Unknown 06/04/2024 11:09 AM EDT 06/04/2024 11:09 AM EDT Delroy Fofana MD POINT OF CARE TEST ORDERABLES [facility] [place] [address] * Heparin (unfractionated) Level (06/04/2024 10:41 AM EDT) UF Heparin 0.43 IU/mL 06/04/2024 11:06 AM EDT [facility] Comment: Heparin (anti-Xa) levels [...] MD HEMATOLOGY ORDERABLE S Performing Organization Address City/[facility]/ZIP Co de Phone Number [facility] [place] [place] [address] * Potassium (06/04/2024 10:41 AM EDT) [facility] Potassium 4.0 3.5 - 5.0 mMol/L 06/04/2024 11:11 AM EDT [facility] Blood VENOUS BLOOD SPECIMEN / Unknown Venipuncture / Unknown 06/04/2024 10:41 AM EDT 06/04/2024 10:46 AM EDT Shahnaz Scanlon MD CHEMISTRY ORDERABLES Performing Organization Address City/[facility]/ZIP Co de Phone Number [facility] [place] [address] * POC, GLUCOSE (06/04/2024 7:11 AM EDT) Pathologist [facility] Glucometer, POC 182 65 - 199 mg/dL 06/04/2024 7:12 AM EDT [facility] Comment:Supplemental ranges: <140 mg/dL before meals <180 mg/dL all other times of the day. Blood CAPILLARY BLOOD / Unknown 06/04/2024 7:11 AM EDT 06/04/2024 7:12 AM EDT Delroy Fofana MD POINT OF CARE TEST ORDERABLES Performing Organization Address [facility]/ZIP Co de Phone Number [facility] [place] [address] * Heparin (unfractionated) Level (06/04/2024 4:38 AM EDT) UF Heparin 0.41 IU/mL 06/04/2024 5:19 AM EDT [facility] Comment: Heparin (anti-Xa) levels [...] MD HEMATOLOGY ORDERABLE S Performing Organization Address City/[facility]/ZIP Co de Phone Number [facility] [place] [place] [address] * (ABNORMAL) CBC (with Diff) (06/04/2024 4:38 AM EDT) White Blood Cell 11.45(H) 4.00 - 9.50 x10(3)/mc L 06/04/2024 5:12 AM [facility] Red Blood Cell 5.35 4.58 - 5.54 x10(6)/mc L 06/04/2024 5:12 AM [facility] Hemoglobin 16.0 13.7 - 16.5 g/dL 06/04/2024 5:12 AM [facility] Hematocrit 49.6(H) 40.5 - 48.5 % 06/04/2024 5:12 AM [facility] Mean Cell Volume 92.7 82.9 - 93.1 fL 06/04/2024 5:12 AM [facility] Mean Cell Hemoglobin 29.9 27.5 - 32.1 pg 06/04/2024 5:12 AM [facility] Mean Cell Hemoglobin Concentration 32.3 32.0 - 35.7 g/dL 06/04/2024 5:12 AM [facility] Platelet 222 145 - 357 x10(3)/mc L 06/04/2024 5:12 AM [facility] Mean Platelet Volume 9.5 7.6 - 12.9 fL 06/04/2024 5:12 AM [facility] RDW Standard Deviation 47.6(H) 36.0 - 45.0 fL 06/04/2024 5:12 AM [facility] RDW coefficient of variation 14.1(H) 11.4 - 13.8 % 06/04/2024 5:12 AM [facility] NRBC% auto 0.0 % 06/04/2024 5:12 AM [facility] NRBC Absolute <0.01 <0.01 x10(3)/mc L 06/04/2024 5:12 AM [facility] Neutrophil % 60.3 % 06/04/2024 5:12 AM EDT [facility] Neutrophil Absolute (ANC) - Automated 6.91(H) 1.70 - 6.10 x10(3)/mc L 06/04/2024 5:12 AM EDT [facility] Lymph % 25.1 % 06/04/2024 5:12 AM EDT [facility] Lymph Absolute 2.87 0.90 - 3.20 x10(3)/mc L 06/04/2024 5:12 AM EDT [facility] Monocyte % 10.6 % 06/04/2024 5:12 AM EDT [facility] Monocyte Absolute 1.21(H) 0.30 - 0.90 x10(3)/mc L 06/04/2024 5:12 AM EDT [facility] Eos % 2.8 % 06/04/2024 5:12 AM EDT [facility] Eos Absolute 0.32 0.00 - 0.40 x10(3)/mc L 06/04/2024 5:12 AM EDT [facility] Basophil % 0.7 % 06/04/2024 5:12 AM EDT [facility] Baso Absolute 0.08 0.00 - 0.10 x10(3)/mc L 06/04/2024 5:12 AM EDT [facility] Immature Gran % 0.5 % 5:12 AM EDT [facility] Immature Gran Absolute 0.06(H) 0.00 - 0.04 x10(3)/mc L 06/04/2024 5:12 AM EDT [facility] Blood VENOUS BLOOD SPECIMEN / Unknown Venipuncture / Unknown 06/04/2024 4:38 AM EDT 06/04/2024 5:07 AM EDT Shahnaz Scanlon MD HEMATOLOGY ORDERABLE S [facility] [place] [place] [address] * Magnesium (06/04/2024 4:38 AM EDT) Magnesium 0.84 0.69 - 1.07 mMol/L 06/04/2024 5:35 AM EDT [facility] Blood VENOUS BLOOD SPECIMEN / Unknown Venipuncture / Unknown 06/04/2024 4:38 AM EDT 06/04/2024 5:07 AM EDT Shahnaz Scanlon MD CHEMISTRY ORDERABLES [facility] [place] [address] * (ABNORMAL) Basic Metabolic Panel (06/04/2024 4:38 AM EDT) Glucose 118 65 - 199 mg/dL 06/04/2024 5:35 AM EDT [facility] Comment:Glucose Concentratio n >=200 mg/dL plus symptoms is consistent with Diabetes Mellitus. Blood Urea Nitrogen 22(H) 10 - 20 mg/dL 06/04/2024 5:35 AM EDT [facility] Creatinine 1.22 0.80 - 1.50 mg/dL 06/04/2024 5:35 AM EDT [facility] Sodium 137 135 - 145 mMol/L 06/04/2024 5:35 AM EDT [facility] Potassium 3.6 3.5 - 5.0 mMol/L 06/04/2024 5:35 AM EDT [facility] Chloride 97(L) 98 - 107 mMol/L 06/04/2024 5:35 AM EDT [facility] Carbon Dioxide 29 22 - 31 mMol/L 06/04/2024 5:35 AM EDT [facility] Anion Gap 11 5 - 15 mMol/L 06/04/2024 5:[facility] Calcium 9.0 8.5 - 10.5 mg/dL 06/04/2024 5:[facility] Est Glomerular Filtration Rate - Male 65 mL/min/1. 73 m?? 06/04/2024 5:35 AM EDT [facility] Comment: This patient's estimated [...] Scanlon MD CHEMISTRY ORDERABLES Performing Organization Address City/State/[facility] Co de Phone Number [facility] [place] [address] * Heparin (unfractionated) Level (06/03/2024 8:58 PM EDT) UF Heparin 0.27 IU/mL 06/03/2024 9:33 PM EDT [facility] Comment: Heparin (anti-Xa) levels [...] EDT Shahnaz Scanlon MD HEMATOLOGY ORDERABLE S [facility] [place] [place] [address] * POC, GLUCOSE (06/03/2024 8:05 PM EDT) Glucometer, POC 136 65 - 199 mg/dL 06/03/2024 8:05 PM EDT [facility] Comment:Supplemental ranges: <140 mg/dL before meals <180 mg/dL all other times of the day. Blood CAPILLARY BLOOD / Unknown 06/03/2024 8:05 PM EDT 06/03/2024 8:05 PM EDT Delroy Fofana MD POINT OF CARE TEST ORDERABLES Performing Organization Address City/[facility]/ZIP Co de Phone Number [facility] [place] [address] * POC, GLUCOSE (06/03/2024 5:48 PM EDT) Glucometer, POC 191 65 - 199 mg/dL 06/03/2024 5:48 PM EDT [facility] Comment:Supplemental ranges: <140 mg/dL before meals <180 mg/dL all other times of the day. Blood CAPILLARY BLOOD / Unknown 06/03/2024 5:48 PM EDT 06/03/2024 5:49 PM EDT Delroy Fofana MD POINT OF CARE TEST ORDERABLES [facility] [place] [place] [address] * CT Chest wo Contrast (Generic) (06/03/2024 4:33 PM EDT) WORKSTATION ID [id number] DH RAD Anatomical Region Laterality Modality Chest Computed Tomogra phy Impressions 06/03/2024 4:47 PM EDT Cardiomegaly. Biventricular ICD leads in place. Thank you for letting us participate in the care of this patient. ??If you are a health care provider and have any questions regarding this report, please contact the number below. ??For patients who have questions please contact the health career advisor that requested your imaging first. ? Electronically signed by: Stuart Aponte MD, [facility] ??([phone]), at 06/03/2024 4:47 PM Narrative 06/03/2024 4:47 [...] who have questions please contactthe health career advisor that requested your imaging first. Bobby Loja MD IMG CT ORDERABLES * Carotid Duplex, Bilateral (06/03/2024 2:19 PM EDT) VB Text Report Department: Vascular Surgery Lab Patient: [id number] (GEORGE MEHTA) CPT: 33985 Referring Physician: BOBBY LOJA ?? Phone: Indications: [...] Loja MD VASCULAR ORDERABLES Performing Organization Address City/[facility]/ZIP Co de Phone Number [facility] * Heparin (unfractionated) Level (06/03/2024 12:48 PM EDT) UF Heparin 0.15 IU/mL 06/03/2024 1:13 PM EDT [facility] Comment: Heparin (anti-Xa) levels [...] MD HEMATOLOGY ORDERABLE S Performing Organization Address City/[facility]/ZIP Co de Phone Number [facility] [place] [address] * POC, GLUCOSE (06/03/2024 11:14 AM EDT) Glucometer, POC 166 65 - 199 mg/dL 06/03/2024 11:14 AM EDT [facility] Comment:Supplemental ranges: <140 mg/dL before meals <180 mg/dL all other times of the day. Blood CAPILLARY BLOOD / Unknown 06/03/2024 11:14 AM EDT 06/03/2024 11:14 AM EDT Delroy Fofana MD POINT OF CARE TEST ORDERABLES [facility] [place] [place] [address] * (ABNORMAL) Troponin-T, High Sensitivity 3 Hour (06/03/2024 10:06 AM EDT) Troponin-T, High Sensitivity 266(H) <=22 ng/L 06/03/2024 10:50 AM EDT [facility] Comment: This patient's troponin [...] [facility] Test [facility] Troponin - https://[email or web address]-.testcatalog.org/catalogs/565/files/21591 Reference: Fourth [place] Definition of Myocardial Infarction. Journal of the [employer] 2018;72:6078-6485 Troponin-T, HS 3 hr delta 06/03/2024 10:50 AM EDT [facility] Comment:Delta troponin value not calculated, sample collected outside of delta calculation time limit. Blood VENOUS BLOOD SPECIMEN / Unknown IP Care Team Draw / Unknown 06/03/2024 10:06 AM EDT 06/03/2024 10:15 AM EDT Delroy Fofana MD CHEMISTRY ORDERABLE S Performing Organization Address [facility]/State/ZIP Co de Phone Number [facility] [place] [address] * ECHO COMPLETE W CONTRAST (06/03/2024 8:46 AM EDT) Anatomical Region Laterality Modality Cardiac Other 06/03/2024 6:52 AM EDT Narrative 06/03/2024 10:32 AM EDT [address] [place] [address] ? Echocardiogram Report Name: ASHLEY MEHTAJOSEFINA Shankar ?Study Date: 06/03/2024 06:52 AM : 1955 ? Height: 168 cm ? Account: [id number] Age: 69 yrs ? Weight: 102 kg Gender: Male ?BSA: 2.1 m2 Ordering Physician: SHAHNAZ SCANLON Referring Physician: NEHAL QUINETRO Performed By: Sara Kebede RDCS Reason For Study: STEMI Exam Location: [facility]. Interpretation Summary -Left ventricular systolic function is [...] fellow performed study of today's date). Procedure Complete-[id number]. Image enhancement Optison was used for left [...] Note Jonnie Jordan MD - 06/03/2024 [address] [place] [address] Echocardiogram Report Name: ASHLEY MEHTAJOSEFINA Shankar Study Date: 406:52 AM : 1955 Height: 168 cm Account: [id number] Age: 69 yrs Weight: 102 kg Gender: Male BSA: 2.1 m2 Ordering Physician: SHAHNAZ SCANLON Referring Physician: NEHAL QUINTERO Performed By: Sara Kebede RDCS Reason For Study: STEMI Exam Location: [facility]. Interpretation Summary -Left ventricular systolic function is [...] a fellow performed study of's date). Procedure Complete-[id number]. Image enhancement Optison was used for left [...] valve mean: 3.2 mmHg MV E max muirel: 124.3 cm/sec MV A max muriel: 98.5 [...] 289(H) <=22 ng/L 06/03/2024 9:26 AM EDT [facility] Comment: This patient's troponin [...] [facility] Test Catalog Troponin - https://[email or web address].[email or web address]/catalogs/565/files/48196 Reference: Fourth [place] Definition of Myocardial Infarction. Journal of the [employer] 2018;72:8750-8505 Troponin-T, HS 1 hr delta 5 ng/L 06/03/2024 9:26 AM EDT [facility] Comment:The 1 hour Troponin T delta value is the absolute difference between the Troponin T concentrations of the initial and subsequent sample collected between 45 - 120 minutes following the initial collection. Blood VENOUS BLOOD SPECIMEN / Unknown IP Care Team Draw / Unknown 06/03/2024 8:27 AM EDT 06/03/2024 8:37 AM EDT Delroy Fofana MD CHEMISTRY ORDERABLE S [facility] [place] [address] * POC, GLUCOSE (06/03/2024 7:54 AM EDT) Pathologist Jenny Glucometer, POC 195 65 - 199 mg/dL 06/03/2024 7:55 AM EDT [facility] Comment:Supplemental ranges: <140 mg/dL before meals <180 mg/dL all other times of the day. Blood CAPILLARY BLOOD / Unknown 06/03/2024 7:54 AM EDT 06/03/2024 7:55 AM EDT Nuha Rojo MD POINT OF CARE TEST ORDERABLES [facility] [place] [place] [address] * (ABNORMAL) Troponin-T, High Sensitivity (06/03/2024 7:39 AM EDT) Troponin-T, High Sensitivity Initial 284(H) <=22 ng/L 06/03/2024 8:29 AM EDT [facility] Comment: This patient's troponin [...] [facility] Test [facility] Troponin - https://[email or web address]-.testcatalog.org/catalogs/565/files/21650 Reference: Fourth [place] Definition of Myocardial Infarction. Journal of the [employer] 2018;72:1761-1232 Blood VENOUS BLOOD SPECIMEN / Unknown IP Care Team Draw / Unknown 06/03/2024 7:39 AM EDT 06/03/2024 7:48 AM EDT Delroy Fofana MD CHEMISTRY ORDERABLE S [facility] [place] [place] [address] * (ABNORMAL) Troponin-T, High Sensitivity 3 Hour (06/03/2024 5:11 AM EDT) Pathologist [facility] Troponin-T, High Sensitivity 254(H) <=22 ng/L 06/03/2024 5:49 AM EDT [facility] Comment: This patient's troponin [...] [facility] Test Catalog Troponin - https://[facility]-.testcatalog.org/catalogs/565/files/36536 Reference: [place] Definition of Myocardial Infarction. Journal of the [employer] 2018;72:2267-9838 Troponin-T, HS 3 hr delta 46 ng/L 06/03/2024 5:49 AM EDT [facility] Comment:The 3 hour Troponin T delta value is the absolute difference between the Troponin T concentrations of the initial and subsequent sample collected between 2 h: 45 min and 6 h following the initial collection Blood VENOUS BLOOD SPECIMEN / Unknown IP Care Team Draw / Unknown 06/03/2024 5:11 AM EDT 06/03/2024 5:20 AM EDT Shahnaz Scanlon MD CHEMISTRY ORDERABLES [facility] [place] [place] [address] * (ABNORMAL) Troponin-T, High Sensitivity 1 Hour (06/03/2024 3:07 AM EDT) Troponin-T, High Sensitivity 218(H) <=22 ng/L 06/03/2024 3:39 AM EDT [facility] Comment: This patient's troponin [...] [facility] Test Catalog Troponin - [email or web address] Reference: Fourth [place] Definition of Myocardial Infarction. Journal of the [employer] 2018;72:5493-7851 Troponin-T, HS 1 hr delta 10 ng/L 06/03/2024 3:39 AM EDT [facility] Comment:The 1 hour Troponin T delta value is the absolute difference between the Troponin T concentrations of the initial and subsequent sample collected between 45 - 120 minutes following the initial collection. Blood VENOUS BLOOD SPECIMEN / Unknown IP Care Team Draw / Unknown 06/03/2024 3:07 AM EDT 06/03/2024 3:12 AM EDT Shahnaz Scanlon MD CHEMISTRY ORDERABLES [facility] One [place] [address] * XR Chest One View (06/03/2024 2:41 AM EDT) WORKSTATION ID [id number] RAD Anatomical Region Laterality Modality Chest N/A Digital Radiogra phy Impressions 06/03/2024 3:06 AM EDT No radiographically evident acute cardiopulmonary process. Thank you for letting us participate in the care of this patient. ??If you are a health care provider and have any questions regarding this report, please contact the number below. ??For patients who have questions please contact the health career advisor that requested your imaging first. ? Narrative [...] technique. No displaced rib fracture. Procedure Note Coarzon Mauro MD - 06/03/2024 EXAMINATION: XR CHEST [...] who have questions please contactthe health career advisor that requested your imaging first. Shahnaz Scanlon MD IMG DX ORDERABLES * Heparin (unfractionated) Level (06/03/2024 2:13 AM EDT) UF Heparin 0.56 IU/mL 06/03/2024 4:13 AM EDT [facility] Comment: Heparin (anti-Xa) levels [...] MD HEMATOLOGY ORDERABLE S Performing Organization Address City/[facility]/ZIP Co de Phone Number [facility] [place] [place] [address] * (ABNORMAL) Troponin-T, High Sensitivity (06/03/2024 2:13 AM EDT) Troponin-T, High Sensitivity Initial 208(H) <=22 ng/L 06/03/2024 3:02 AM EDT [facility] Comment: This patient's troponin [...] [facility] Test Catalog Troponin - [email or web address]/[email or web address] Reference: Fourth [place] Definition of Myocardial Infarction. Journal of the [place] College [employer] Cardiology 2018;72:4351-4447 Blood VENOUS BLOOD SPECIMEN / Unknown IP Care Team Draw / Unknown 06/03/2024 2:13 AM EDT 06/03/2024 2:32 AM EDT Shahnaz Scanlon MD CHEMISTRY ORDERABLES [facility] [place] [place] [address] * Magnesium (06/03/2024 2:13 AM EDT) Magnesium 0.86 0.69 - 1.07 mMol/L 06/03/2024 3:02 AM EDT [facility] Blood VENOUS BLOOD SPECIMEN / Unknown IP Care Team Draw / Unknown 06/03/2024 2:13 AM EDT 06/03/2024 2:32 AM EDT Shahnaz Scanlon MD CHEMISTRY ORDERABLES [facility] [place] [place] [address] * Basic Metabolic Panel (06/03/2024 2:13 AM EDT) Glucose 126 65 - 199 mg/dL 06/03/2024 3:02 AM EDT [facility] Comment:Glucose Concentratio n >=200 mg/dL plus symptoms is consistent with Diabetes Mellitus. Blood Urea Nitrogen 20 10 - 20 mg/dL 06/03/2024 3:02 AM EDT [facility] Creatinine 1.13 0.80 - 1.50 mg/dL 06/03/2024 3:02 AM EDT [facility] Sodium 139 135 - 145 mMol/L 06/03/2024 3:02 AM EDT [facility] Potassium 4.2 3.5 - 5.0 mMol/L 06/03/2024 3:02 AM EDT [facility] Chloride 101 98 - 107 mMol/L 06/03/2024 3:02 AM EDT [facility] Carbon Dioxide 26 22 - 31 mMol/L 06/03/2024 3:02 AM EDT [facility] Anion Gap 12 5 - 15 mMol/L 06/03/2024 3:02 AM EDT [facility] Calcium 9.8 8.5 - 10.5 mg/dL 06/03/2024 3:02 AM EDT [facility] Est Glomerular Filtration Rate - Male 71 mL/min/1. 73 m?? 06/03/2024 3:02 AM EDT [facility] Comment: This patient's estimated [...] AM EDT Shahnaz Scanlon MD CHEMISTRY ORDERABLES [facility] [place] [id number] * (ABNORMAL) CBC (with Diff) (06/03/2024 2:13 AM EDT) White Blood Cell 11.16(H) 4.00 - 9.50 x10(3)/mc L 06/03/2024 2:37 AM EDT [facility] Red Blood Cell 5.09 4.58 - 5.54 x10(6)/mc L 06/03/2024 2:37 AM EDT [facility] Hemoglobin 15.0 13.7 - 16.5 g/dL 06/03/2024 2:37 AM EDT [facility] Hematocrit 47.4 40.5 - 48.5 % 06/03/2024 2:37 AM EDT [facility] Mean Cell Volume 93.1 82.9 - 93.1 fL 06/03/2024 2:37 AM EDT [facility] Mean Cell Hemoglobin 29.5 27.5 - 32.1 pg 06/03/2024 2:37 AM [facility] Mean Cell Hemoglobin Concentration 31.6(L) 32.0 - 35.7 g/dL 06/03/2024 2:37 AM [facility] Platelet 217 145 - 357 x10(3)/mc L 06/03/2024 2:37 AM [facility] Mean Platelet Volume 9.5 7.6 - 12.9 fL 06/03/2024 2:37 AM [facility] RDW Standard Deviation 49.0(H) 36.0 - 45.0 fL 06/03/2024 2:37 AM [facility] RDW coefficient of variation 14.1(H) 11.4 - 13.8 % 06/03/2024 2:37 AM [facility] NRBC% auto 0.0 % 06/03/2024 2:37 AM [facility] NRBC Absolute <0.01 <0.01 x10(3)/mc L 06/03/2024 2:37 AM [facility] Neutrophil % 58.4 % 06/03/2024 2:37 AM [facility] Neutrophil Absolute (ANC) - Automated 6.51(H) 1.70 - 6.10 x10(3)/mc L 06/03/2024 2:37 AM [facility] Lymph % 29.9 % 06/03/2024 2:37 AM [facility] Lymph Absolute 3.34(H) 0.90 - 3.20 x10(3)/mc L 06/03/2024 2:37 AM [facility] Monocyte % 8.1 % 06/03/2024 2:37 AM [facility] Monocyte Absolute 0.90 0.30 - 0.90 x10(3)/mc L 06/03/2024 2:37 AM [facility] Eos % 2.4 % 06/03/2024 2:37 AM EDT [facility] Eos Absolute 0.27 0.00 - 0.40 x10(3)/mc L 06/03/2024 2:37 AM EDT [facility] Basophil % 0.8 % 06/03/2024 2:37 AM EDT [facility] Baso Absolute 0.09 0.00 - 0.10 x10(3)/mc L 06/03/2024 2:37 AM EDT [facility] Immature Gran % 0.4 % 2:37 AM EDT [facility] Immature Gran Absolute 0.05(H) 0.00 - 0.04 x10(3)/mc L 06/03/2024 2:37 AM EDT [facility] Blood VENOUS BLOOD SPECIMEN / Unknown IP Care Team Draw / Unknown 06/03/2024 2:13 AM EDT 06/03/2024 2:31 AM EDT Shahnaz Scanlon MD HEMATOLOGY ORDERABLE S [facility] [place] [address] * Lipid Panel (Reflex Direct LDL) (06/03/2024 2:13 AM EDT) Cholesterol, Total 76 mg/dL 06/03/2024 3:02 AM EDT [facility] Comment: Desirable: < 200 mg/dL Borderline High: 200 - 239 mg/dL High: > or = 240 mg/dL Triglyceride 75 mg/dL 06/03/2024 3:02 AM EDT [facility] Comment: Normal: <150 mg/dL Borderline High: 150-199 mg/dL High: 200-499 mg/dL Very High: > or =500 mg/dL HDL Cholesterol 39 mg/dL 3:02 AM EDT [facility] Comment:Males: High Risk: <4 0 mg/dL LDL Cholesterol 21 mg/dL 3:02 AM EDT [facility] Comment: Desirable: <100 mg/dL Above Desirable: 100-129 mg/dL Borderline High: 130-159 mg/dL High: 160-189 mg/dL Very High: > or =190 mg/dL Note: LDL calculation updated to the NIH LDL formula as of 03/07/2024 Non-HDL Cholesterol 37 mg/dL 06/03/2024 3:02 AM EDT [facility] Comment: Desirable: <130 mg/dL Above Desirable: 130-159 mg/dL Borderline High: 160-189 mg/dL High: 190-219 mg/dL Very High: > or = 220 mg/dL Blood VENOUS BLOOD SPECIMEN / Unknown IP Care Team Draw / Unknown 06/03/2024 2:13 AM EDT 06/03/2024 2:32 AM EDT [facility] - 06/03/2024 3:02 AM EDT It [...] Scanlon MD CHEMISTRY ORDERABLES Performing Organization Address [facility] Co de Phone Number [facility] [place] [address] * (ABNORMAL) APTT (06/03/2024 2:13 AM EDT) [facility] Partial Thromboplastin Time 105(HHH) 25 - 37 sec 06/03/2024 4:13 AM EDT [facility] Comment: The PTT is [...] MD HEMATOLOGY ORDERABLE S Performing Organization Address City/[facility]/ZIP Co de Phone Number [facility] [place] [address] * Prothrombin Time (06/03/2024 2:13 AM EDT) Prothrombin Time 11.5 9.4 - 12.5 sec 06/03/2024 4:13 AM EDT [facility] International Normalization Ratio 1.0 <=4.9 06/03/2024 4:13 AM EDT [facility] Comment: An INR < [...] MD HEMATOLOGY ORDERABLE S Performing Organization Address City/State/[facility] Co de Phone Number [facility] [place] [place] [address] * Hepatic Function Panel (06/03/2024 2:13 AM EDT) Pathologist [facility] Albumin 3.8 3.2 - 5.2 g/dL 06/03/2024 3:02 AM EDT [facility] Aspartate Aminotransferase 20 <=39 unit/L 06/03/2024 3:02 AM EDT [facility] Alanine Aminotransferase 12 0 - 55 unit/L 06/03/2024 3:02 AM EDT [facility] Alkaline Phosphatase 76 40 - 130 unit/L 06/03/2024 3:02 AM EDT [facility] Bilirubin, Total 0.4 <=1.3 mg/dL 06/03/2024 3:02 AM EDT [facility] Bilirubin, Direct <0.2 0.0 - 0.3 mg/dL 06/03/2024 3:02 AM EDT [facility] Protein, Total 7.0 6.1 - 8.0 g/dL 06/03/2024 3:02 AM EDT [facility] Blood VENOUS BLOOD SPECIMEN / Unknown IP Care Team Draw / Unknown 06/03/2024 2:13 AM EDT 06/03/2024 2:32 AM EDT Shahnaz Scanlon MD CHEMISTRY ORDERABLES Performing Organization Address [facility] Co de Phone Number [facility] [place] [place] [address] * (ABNORMAL) pro-Brain Natriuretic Peptide (06/03/2024 2:13 AM EDT) NT-proBNP 1,628(H) <=124 pg/mL 06/03/2024 4:15 AM EDT [facility] Blood VENOUS BLOOD SPECIMEN / Unknown IP Care Team Draw / Unknown 06/03/2024 2:13 AM EDT 06/03/2024 2:32 AM EDT Shahnaz Scanlon MD CHEMISTRY ORDERABLES Performing Organization Address [facility] Co de Phone Number [facility] [place] [place] [address] * Phosphorus (06/03/2024 2:13 AM EDT) Phosphorus 4.4 2.5 - 4.5 mg/dL 06/03/2024 3:02 AM EDT [facility] Blood VENOUS BLOOD SPECIMEN / Unknown IP Care Team Draw / Unknown 06/03/2024 2:13 AM EDT 06/03/2024 2:32 AM EDT Shahnaz Scanlon MD CHEMISTRY ORDERABLES Performing Organization Address City/[facility]/ZIP Co de Phone Number [facility] [place] [place] [address] * EKG 12 Lead (06/03/2024 1:45 AM EDT) Ventricular rate 63 BPM MUSE SYSTEM Atrial Rate 63 BPM MUSE SYSTEM P-R Interval 168 ms MUSE SYSTEM QRS Duration 96 ms MUSE SYSTEM Q-T Interval 400 ms MUSE SYSTEM QTC Calculated (Bezet) 409 ms MUSE SYSTEM Calculated P [place] 65 degrees MUSE SYSTEM Calculated R [place] 70 degrees MUSE SYSTEM Calculated T [place] -86 degrees MUSE SYSTEM INTERPRETATION Atrial-sensed ventricular-paced rhythm Abnormal ECG No previous ECGs available I personally reviewed the tracing and edited the fellows interpretation Confirmed by fellow Sunni Agudelo ([id number]) on 06/04/2024 3:55:40 PM Confirmed by MD Tamia, Stuart Perry ([id number]) on 06/05/2024 11:46:48 AM MUSE SYSTEM 06/03/2024 1:45 AM EDT 06/05/2024 11:46 AM EDT Shahnaz Scanlon MD ECG ORDERABLES MUSE SYSTEM * CARDIAC CATHETERIZATION (06/03/2024 12:42 AM EDT) Anatomical Region Laterality Modality Other Narrative 06/04/2024 2:22 PM EDT ?[facility] ? Cardiac Catheterization/Intervention Report ? Patient Name: George Mehta Raad. ? Procedure Date: 06/02/2024 ? A #: [id number] ? Primary Physician: Nuha Shen I ? Case #: [id number] ? File Name: [id number] ? Catheterization Order Number: [id number] ? [facility] ? Final Report [place], [place] ? Patient Name: ? George L. Tyson ? ID#: ?[id number] ? : ?1955 ? Procedure Date: ? [...] was designated as ASA Class IV. The [facility] clinical frailty ?scale is 5: Mildly Frail. ? Diagnostic Tests: ?Electrocardiography: ? EKG was assessed by ECG. EKG was Abnormal. EKG showed ST Deviation ? >= 0.5 mm. ?Medications Prior to Procedure: ? Sacubitril and Valsartan, Aspirin, Beta Erik, Statin and ? Thrombolytic (any). ? Indications for Diagnostic Cath: ?The priority of the diagnostic procedure was Emergent. 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 ??Imaging was [...] 3.5 guiding catheter and a 3.5 Fr [place] 20 Mhz using ?Manual pullback. ??Imaging was [...] Procedure Note Nuha Shen MD - 07/20/2024 [facility] Cardiac Catheterization/Intervention Report Patient Name: George Mehta Procedure Date: 06/02/2024 A #: [id number] Primary Physician: Nuha Shen I Case #: [id number] File Name: [id number] Catheterization Order Number: [id number] [facility] FinalReport [place], [place] Patient Name: George Mehta ID#:[id number] :1955 Procedure Date: June 02, 2024 Case [...] was designated as ASA Class IV. The [facility] clinicalfrailty scale is 5: Mildly Frail. Diagnostic Tests: Electrocardiography: EKG was assessed by ECG. EKG was Abnormal. EKG showed STDeviation >= 0.5 mm. Medications Prior to Procedure: Sacubitril and Valsartan, Aspirin, Beta Erik, Statin and Thrombolytic (any). Indications for Diagnostic Cath: The priority of the diagnostic procedure was Emergent. Theindication for the fish farm laborer visit is ACS less than or [...] units of heparin were administered. A total [id number] of Omnipaque were opened, 84cc of Omnipaque were administered [id number] of Omnipaque were wasted. Radiation: Fluoro time [...] 3.5 guiding catheter and a 3.5 Fr [place] 20 Mhz usingManual pullback. Imaging was successful. [...] 3.5 guiding catheter and a 3.5 Fr [place] 20 Mhzusing Manual pullback. Imaging was successful. Indication: IVUS performed for pre intervention planning. Findings Pre-Intervention: scattered plaque, calcification and [id number] degrees calcification. Findings Post-Intervention: Stent not imaged [...] - 199 mg/dL 06/02/2024 11:31 PM EDT [facility] Comment:Supplemental ranges: <140 mg/dL before meals <180 mg/dL all other times of the day. Blood CAPILLARY BLOOD / Unknown 06/02/2024 11:31 PM EDT 06/02/2024 11:31 PM EDT Nuha Rojo MD POINT OF CARE TEST ORDERABLES Performing Organization Address City/State/[facility] Co de Phone Number [facility] [place] [place] [address] documented in this encounter Visit Diagnoses Diagnosis STEMI (ST elevation myocardial infarction)- Primary Acute myocardial infarction, unspecified site, episode of care unspecified ST elevation myocardial infarction (STEMI), unspecified artery Coronary artery disease involving [place] coronary artery of [place] heart without angina pectoris 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 Give WI if unable to take PO, Routine Given 06/14/2024 3:10 PM EST 300 mg atorvastatin (Lipitor) tablet 80 mg 80 mg, Oral, EVERY EVENING, First dose on [facility] 06/03/24 at 0130, Until Discontinued, Routine Given [...] Oral, 2 TIMES DAILY, First dose on [facility] 06/03/24 at 0900, Until Discontinued, Routine Given [...] dose on Fri06/14/24 at 2100, Until Discontinued, [place] teeth and / or gums. Scan the CHG vial in the [employer] Q-Care Oral Care Kit from floor stock. Ventilator-associated pneumonia prophylaxis For use in ICU/Critical care locations ONLY. Obtain kit from Floor Stock location. Scan CHG vial in the [employer] Q-Care Oral Care Kit, Routine Given 06/14/2024 [...] restart at 50% of previous rate. Call hotel housekeeper if goal not achieved at maximum rate. [...] in sodium chloride 0.9% infusion (for [facility], Remote Encoding Operations Supervisor, OR use only) 3-5 mL/hr, Intravenous, CONTINUOUS, [...] MEALS, First dose (after last modification) on [facility] 06/17/24 at 0800, Until Discontinued, MEAL ASSOCIATED [...] MEALS, First dose (after last modification) on [facility] 06/17/24 at 1700, Until Discontinued, MEAL ASSOCIATED [...] TIMES DAILY WITH MEALS, First dose on [place] 06/06/24 at 1200, Until Discontinued, MEAL ASSOCIATED Give 1 unit for every 10 grams carbohydrate. Hold if not eating or if BG less than 70 mg/dL. , Routine Given 06/06/2024 12:25 PM EST 4 Units insulin lispro (HumaLOG;Admelog) (100 unit/mL) subcutaneous injection vial 1-10 Units 1-10 Units, Subcutaneous, EVERY 4 HOURS SCHEDULED, First dose (after last modification) on [facility] 06/19/24 at 0800, Until Discontinued, CORRECTION BOLUS [...] TIMES DAILY BEFORE MEALS, First dose on [place] 06/03/24 at 0730, Until Discontinued, CORRECTION BOLUS [...] 2100, Last dose on Fri06/23/24 at 0900, Healthcare Specialist recommended duration is 3 days., Routine Given [...] 8:02 PM EST 2 tablets sodium chloride ([place]) 0.65 % nasal spray 1 spray 1 [...] 2.0 L/min/M2. Maximum volume 2 L. Call hotel housekeeper for additional fluid orders: pager #[phone]. Rate/Dose Verify 06/15/2024 10:00 AM EST 1 [...] 2100, Last dose on Fri06/23/24 at 0900, Healthcare Specialist recommended duration is 3 days., Routine 2043 [...] oral route first line., Routine sodium chloride ([place]) 0.65 % nasal spray 1 spray 1 [...] 6 hours upon arrival to Unit. Give WI if unable to take PO, Routine Group [...] Routine documented in this encounter Care Teams Pathology Teacher Relationship Specialty Start Date End Date Mauro Berumen MD [address] [place] [address] PCP - General Family Medicine 06/02/24 documented as of this encounter
--- OUTSIDE RECORDS SUMMARY | 2024-08-09 10:54 | XMS_ITS | Encounter Summary ---
Author Organization [facility] Address [facility] [place] [address] Care Team Providers Care Program Counselor Name Role Phone Mauro Berumen MD Primary Care Provider [phone] Encounter Details Date Type Department Care Team (Latest Contact Info) Description 06/14/2024 Unscheduled Encounter Cardiology at [address] [place] [phone] Ross Corbin PA [facility] [place] [address] Cardiac resynchronization therapy defibrillator (BARN AND PROPERTY MANAGER-D) in place [Z95.810] Social History Tobacco Use Types Packs/Day Years Used Date Smoking Tobacco: Every Day Cigarettes Smokeless Tobacco: Never [facility] Utilities Answer Date Recorded In [...] AM EST Cardiac Device Interrogation Arturo Mehta [id number] 06/14/2024 History: Arturo Mehta is a 69 year old male with a PMH significant for HTN, HLD, DM2, current TUD (abstinent since admission), ASCVD with multiple prior MT and PCIs, ICM/HFrEF LVEF 30% (all territories viable on cMRI) who is undergoing a CABG procedure and EP was asked to reprogram his BARN AND PROPERTY MANAGER-D device for the procedure. Vitals: Last Set of Vitals and range of vitals over past 24 hours: Range last 24 hrs Temperature Temp: [36 ??C (96.8 ??F)-37 ??C (98.6 ??F)] Heart Rate Heart Rate: [57-72] Blood Pressure BP: (99-138)/(66-86) Respiratory Rate Resp: [13-24] SpO2 SpO2: [90 %-98 %] Device Interrogation: Data Generator: MedMuteButton Amplia MRI Quad BARN AND PROPERTY MANAGER-D [id number] / [id number] - Left-sided implant; 06/16/19 RA Lead: Medtronic 4076 CapSureFix Novus [id number]; 06/16/19 RV Lead: Medtronic [id number] / [id number]; 06/16/19 LV Lead: Medtronic 4298 Attain Performa MRI / [id number]; 06/16/19 Diagnostics Pacing Mode: DDD @ 50/130 [...] scheduled. Ross Corbin PA-C, PhD 06/14/2024 Pager: [phone] documented in this encounter Plan of Treatment Not on file documented as of this encounter Visit Diagnoses Diagnosis Cardiac resynchronization therapy defibrillator (BARN AND PROPERTY MANAGER-D) in place [Z95.810] documented in this encounter Care Teams Program Counselor Relationship Specialty Start Date End Date Mauro Berumen MD [address] [place] [address] PCP - General Family Medicine 06/02/24 documented as of this encounter
--- OUTSIDE RECORDS SUMMARY | 2024-08-09 10:54 | XMS_ITS | Encounter Summary ---
Author Organization [facility] Address [facility] [place] [address] Care Team Providers Care Unit Manager Rn Name Role Phone Mauro Berumen MD Primary Care Provider [phone] Encounter Details Date Type Department Care Team (Latest Contact Info) Description 06/15/2024 Unscheduled Encounter Cardiology at [address] [place] [phone] Ross Corbin PA [facility] [place] [address] Cardiac resynchronization therapy defibrillator (CONFIDENTIAL INVESTIGATOR-D) in place [Z95.810] Social History Tobacco Use Types Packs/Day Years Used Date Smoking Tobacco: Every Day Cigarettes Smokeless Tobacco: Never [facility] Utilities Answer Date Recorded In the [...] were you homeless or living in a fpc (including now)? 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 Today, EP was asked to reprogram his CONFIDENTIAL INVESTIGATOR-D device for the procedure. Vitals: Last Set of Vitals and range of vitals over past 24 hours: Range last 24 hrs Temperature Temp: [34.9 ??C (94.8 ??F)-37.6 ??C (99.7 ??F)] Heart Rate Heart Rate: [80-107] Blood Pressure BP: (115)/(65) Respiratory Rate Resp: [11-24] SpO2 SpO2: [92 %-100 %] Device Interrogation: Data Generator: Medtronic Amplia MRI Quad CONFIDENTIAL INVESTIGATOR-D [id number] / [id number] - Left-sided implant; 06/16/19 RA Lead: Medtronic 4076 CapSureFix Novus [id number]; 06/16/19 RV Lead: Medtronic 6935M / [id number]; 06/16/19 LV Lead: Medtronic [id number] Attain Performa MRI / [id number]; 06/16/19 Alerts VF Detection OFF, 3+ VF or 3+ FVT Rx Off. Diagnostics Pacing Mode: DDD @ 80/130 bpm Presenting EGMs: BV Underlying Rhythm: Sinus tachycardia ~100 bpm Atrial Pacin.7% Ventricular Pacin.6% CONFIDENTIAL INVESTIGATOR Pacin% Battery and Leads Voltage: 2.93 V [...] - Contact the device clinic at pager [phone] for any further programming adjustments. Ross Corbin PA-C, PhD 06/15/2024 Pager: [phone] documented in this encounter Plan of Treatment Not on file documented as of this encounter Visit Diagnoses Diagnosis Cardiac resynchronization therapy defibrillator (CONFIDENTIAL INVESTIGATOR-D) in place [Z95.810] documented in this encounter Care Teams Unit Manager Rn Relationship Specialty Start Date End Date Mauro Berumen MD [address] [place] [address] PCP - General Family Medicine 06/02/24 documented as of this encounter
--- OUTSIDE RECORDS SUMMARY | 2024-08-09 10:56 | XMS_ITS | Encounter Summary ---
Author Organization Formerly [facility] [place] [address] Care Team Providers [employer] Name Role Phone Mauro Berumen MD Primary Care Provider [phone] Reason for Visit * Auth/Cert Specialty Diagnoses / Procedures Referred By Carroll t Referred To Contact Diagnoses STEMI (ST elevation myocardial infarction) STEMI Procedures CARDIAC CATHETERIZATION EMERGENCY Delroy Monterroso MD [facility] [place] [address] [facility] Referral ID Status Reason Start Date Expiration Date Visits Re quested Visits Authorized [id number] 1 1 Encounter Details Date Type Department Care Team (Late st Contact Info) Description 06/14/2024 7:30 AM EST Anesthesia Event [place] [address] Hosea Ardon MD [facility] DR [place] [address] Joy Leyva CRNA [facility] [place] [address] Anesthesia Record Procedure Summary Procedure Name Responsible [...] by Zeferino Baker RN PIV 06/13/24; 1200; xfyr-hgy-measwf catheter system; 20 gauge; metacarpal vein (top [...] Hosea Ardon MD 06/15/24 1500 by Angeles Lowry RN Urethral Catheter 06/14/24; 0750; Surg shannan longer than 2 hours, Physician order, Need for intraoperative urine output monitoring; Immobility without alternative; indwelling catheter with core temperature probe; 100% silicone; 14; inserted at [facility]; 1; 10; 10; drainage bag; 06/18/24; 1120 [...] Ardon MD 06/15/24 0000 by Yoli Donaldson CANDLES POURER Cent[employer] Line 06/14/24; 0827; Sing le Lumen; [...] Tobacco: Every Day Cigarettes Smokeless Tobacco: Never [facility] Utilities Answer Date Recorded In the past 12 months has [employer], [employer], oil, or water [employer] threatened to shut off services in your [...] in a alf (including now)? No 06/03/2024 IPV Inpatient Questions [...] Procedure Summary Date: 06/14/24 Room / Location: [facility] OR [address] [place] [address] MAIN OR Anesthesia Start: 729 Anesthesia Stop: [...] All Anesthesia Providers: Anesthesiologist: Hosea Ardon MD MARINE METEOROLOGIST: Joy Leyva CRNA Vitals Value Taken Time [...] Diagnosis Date Noted Cardiac resynchronization therapy defibrillator (CARTOGRAPHIC ENGINEER-D) - [employer] Amplia 06/09/2024 Cardiomyopathy, ischemic 06/09/2024 Acute on chronic heart failure with reduced ejection fraction (HFrEF, <= 40%) 06/05/2024 Coronary artery disease involving white [place] coronary artery of white [place] heart without angina pectoris 06/05/2024 Type 2 [...] ACS/crushing chest pain, likely due to lateral [place], 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 LV ejection fraction [...] No acute cardiopulmonary abnormality. TTE Name: GEORGE METHA Study Date: 06/03/2024 06:52 AM Reason For Study: STEMI Exam Location: [facility]. Interpretation Summary -Left ventricular systolic function is [...] 65 - 199 mg/dL -Type and screen ([facility]/CGP/RAFITA): Result Value Ref Range ABORH Type O POSITIVE PATIENT HISTORY Not Found Expires at [id number] on: 06/16/2024 ANTIBODY SCREEN AUTOMATED Negative T&S only valid at [facility] -POC, GLUCOSE: Result Value Ref Range Glucometer, POC 216 (H) 65 - 199 mg/dL -ABORH RECHECK: Result Value Ref Range ABORH Recheck O POSITIVE -Heparin (unfractionated) Level: Result Value Ref Range UF Heparin 0.76 IU/mL Region - Intrathoracic Cardiac Informed Consent: Plan discussed with MARINE METEOROLOGIST. Anesthesia Screening documented in this encounter Plan [...] mL/hr documented in this encounter Care Teams [employer] Traffic [employer] Relationship Specialty Start Date End Date Mauro Berumen MD [address] [place] [address] PCP - General Family Medicine 06/02/24 documented as of this encounter
--- OUTSIDE RECORDS SUMMARY | 2024-08-09 10:56 | XMS_ITS | Encounter Summary ---
Author Organization Formerly [place] [address] Care Team Providers Care Block Cleaner Name Role Phone Mauro Berumen MD Primary Care Provider [phone] Reason for Visit * Auth/Cert Specialty Diagnoses / Procedures Referred By Carroll t Referred To Contact Diagnoses STEMI (ST elevation myocardial infarction) STEMI Procedures CARDIAC CATHETERIZATION EMERGENCY Delroy Monterroso MD [facility] [place] [address] [facility] Referral ID Status Reason Start Date Expiration Date Visits Re quested Visits Authorized [id number] 1 1 Encounter Details Date Type Department Care Team (Late st Contact Info) Description 06/14/2024 7:30 AM EST - 06/14/2024 2:08 PM EST Surgery [place] [address] Bobby Loja MD [facility] [place] [address] @CABG, USING ARTERIAL GRAFT;SINGLE ARTERIAL GRAFT (WRVU 33.75) Social History Tobacco Use Types Packs/Day Years Used Date Smoking Tobacco: Every Day Cigarettes Smokeless Tobacco: Never Tobacco Cessation:Ready to Q uit: No; Counseling Given: Yes [facility] Utilities Answer Date Recorded In the [...] any time in the past 12 m [facility], were you homeless or [...] Patient Age: 69 y.o. Birthdate: 1955 Language: Malawian Race: Choose not to Disclose Ethnicity: Not nor Admit Date: 06/02/2024 Discharge Date: 06/21/2024 Attending Physician: Bobby Loja MD Follow-up Recommendations for Providers: Please continue routine management of cardiovascular risk factors including blood pressure, lipids,glucose, etc. Please note any changes to medications. Patient to follow up with PCP, Mauro Berumen MD, in 1-2 weeks. Patient to follow up with Clinical Trial Leader, Kristen Cardenas in 2-3 weeks. Patient to follow up with Cardiac Surgeon, Dr. Bobby Loja, in 4 wks. Inpatient Provider Contact Information: [facility] [place] of [place]iac [place] [facility] [address] FAX [phone] Discharge Diagnoses (Hospital Problems) Primary Diagnoses: STEMI [...] (WRVU 33.75) performed by Bobby Loja MD [facility] MAIN OR PRO CABG, ARTERY-VEIN, TWO N/A 06/14/2024 @CABG, TWO VENOUS GRAFTS & ARTERIAL GRAFT (WRVU 7.93) performed by Bobby Loja MD at [facility] OR PRO ENDOSCOPY W/VIDEO-ASST VEIN HARVEST, CABG N/A 06/14/2024 ENDOSCOPIC HARVEST VEIN(S) FOR CABG (WRVU 0.31) performed by Bobby Loja MD at [facility] MAIN OR PRO EXC MEDIASTINAL TUMOR N/A 06/14/2024 @EXCISION OF MEDIASTINAL TUMOR (WRVU 19.55) performed by Bobby Loja MD at [facility] MAIN OR PRO INSERT INTRA-AORTIC BALLOON ASST DEVICE PERCUTANEOUS N/A 06/13/2024 @INSERTION OF IABP,PERCUTANEOUS (WRVU 4.84) performed by Nuha Shen MD at [facility] CATH LABS PRO UNLISTED CARDIAC SURG PROCEDURE N/A 06/14/2024 EXPLORATION AND OVERSEW ATRIAL APPENDAGE (WRVU 5.94) performed by Bobby Loja MD at [facility] [place] Prior To Admission Medications Medications [...] y.o. male with a PMHx of previous ND s/p PCI x3, ICM/HFrEF (LVEF 30%) s/p ICD, DMII, HTN, HLD, remote melanoma, and smoker who presented to [facility] last night via EMS after developing acute, severe chest pain while watching TV. Patient was ruled in for STEMI, given TNK, ASA, plavix, heparin gtt, and sent to [facility] for coronary angiography. LHC demonstrated severely calcified left coronary system with notable LCx 75/80% lesions and CERTIFIED ADAPTED PHYSICAL EDUCATOR OM1 with ISR with collateral retrograde filling, [...] Hospital Course: George Mehta was admitted to [facility] on 06/02/2024 via the CardiologyService with an anterior STEMI after receiving lytics at OSH. He was brought to the manager cardiac cath which showed severely calcified left coronary system with notable LCx 75/80% lesions and CERTIFIED ADAPTED PHYSICAL EDUCATOR OM1 with ISR with collateral retrograde filling, [...] 2 tablespoons of dried fruit. Milk and ao-aayiu-btaqd yogurt have 15 grams of carbs in a serving. A serving is 1 cup of milk or 3/4 cup (6 oz) of sb-kepfv-jalqa yogurt. Starchy vegetables have 15 grams of carbs in a serving. A serving is ?? cup of mashed potatoes or sweet potato; 1 cup winter squash; ?? of a small baked potato; ?? cup of cooked beans; or ?? cup cooked corn or green peas. Learn how much carbs to eat each day and at each meal. A dietitian or certified scrum master can teach you how to keep track [...] Bobby Loja and/or the Cardiac Surgery Physician Appliance Worker Team may be reached at . Weight: [...] Dr. Bobby Loja. You may use a [place] Track or treadmill but avoid any pulling [...] friends, go to a movie, go to synagogue, etc. Heavy activities: No hunting, skiing, jogging, [...] should resume a low fat, low cholesterol, [place] Heart [employer] Diet/Diabetic diet. Driving: No driving [...] while being managed by your PCP and/or Clinical Trial Leader. For future medication refills, please refer to your PCP and/or Clinical Trial Leader after your discharge from our service. Thank you REMOVE CHEST TUBE SUTURES ON OR AFTER 06/24/2024 Home oxygen therapy: N/A Follow up appointments: You should follow up with your PCP, Mauro Berumen MD, in 1-2 weeks. You should follow up with your Clinical Trial Leader, Dr CARDENAS. You have an appointment with your Cardiac Surgeon, Dr. Bobby Loja, in 4 wks. Cardiac Rehabilitation: George Mehta was seen today regarding participation in the outpatient Phase 2 Cardiac Rehabilitation at [facility]. The patient agrees to a referral to this program. The referral will be sent at discharge and the patient should be contacted by the program within 1-2 weeks from discharge. Future Appointments and Orders Future Orders Complete By Expires Referral to Cardiac Rehab [[id number] Custom] As directed Process Instructions: If no progress note charted, please enter Clinical details in comments. Scheduling Instructions: Questions: My question or request is: s/p CABG- cardiac rehab at [facility] Referral to Home Health [REF34 Custom] As directed Process Instructions: If no progress note charted, please enter Clinical details in comments. Scheduling Instructions: Comments: Please evaluate George Mehta for admission to Home Health. [address] [facility] [address] (home) Date of : 1955 Inpatient DOCUMENTATION FOR VNA SERVICES (INCLUDING THOSE PATIENTS WITH MEDICARE COVERAGE REQUIRINGHOME VNA SERVICES AND/OR HOSPICE SERVICES) PATIENT'S LOCATION: George Mehta [address] [facility] [address] (home) Telephone Information: Special Assets Officer's Name: self In discussion with the attending physician, it is certified that this patient is under their care and that they, or a Nurse Practitioner, or Physician Appliance Worker who is working directly with them, hada [...] for services as follows: HOME HEALTH AGENCY: [facility] [address] [place] [id number] RN orders: Cardiopulmonary assessment, incisional assessment, assess [...] issues please call the Cardiology Office at [phone] FOR MEDICARE ONLY: (please delete this section [...] care: As above. Signed: KEILA HANLEY APRN [facility] Section of Cardiac Surgery [facility] [place] [address] FAX [phone] Date: 06/21/2024 CC: MD Antonino Tinajero Joshua R, PA [address] [place] [address] [place] [address] documented in this encounter Discharge Instructions * [...] 2 tablespoons of dried fruit. Milk and rx-xwhil-suxov yogurt have 15 grams of carbs in a serving. A serving is 1 cup of milk or 3/4 cup (6 oz) of vh-oxbsw-xtmom yogurt. Starchy vegetables have 15 grams of carbs in a serving. A serving is ?? cup of mashed potatoes or sweet potato; 1 cup winter squash; ?? of a small baked potato; ?? cup of cooked beans; or ?? cup cooked corn or green peas. Learn how much carbs to eat each day and at each meal. A dietitian or certified scrum master can teach you how to keep track [...] Bobby Loja and/or the Cardiac Surgery Physician Appliance Worker Team may be reached at . Weight: [...] Dr. Bobby Loja. You may use a [place] Track or treadmill but avoid any pulling [...] friends, go to a movie, go to synagogue, etc. Heavy activities: No hunting, skiing, jogging, [...] should resume a low fat, low cholesterol, [place] Heart [employer] Diet/Diabetic diet. Driving: No driving [...] while being managed by your PCP and/or Clinical Trial Leader. For future medication refills, please refer to your PCP and/or Clinical Trial Leader after your discharge from our service. Thank you REMOVE CHEST TUBE SUTURES ON OR AFTER 06/24/2024 Home oxygen therapy: N/A Follow up appointments: You should follow up with your PCP, Mauro Berumen MD, in 1-2 weeks. You should follow up with your Clinical Trial Leader, Dr CARDENAS. You have an appointment with your Cardiac Surgeon, Dr. Bobby Loja, in 4 wks. Cardiac Rehabilitation: George Mehta was seen today regarding participation in the outpatient Phase 2 Cardiac Rehabilitation at [facility]. The patient agrees to a referral to [...] RN - 06/21/2024 8:32 AM EST During [facility] Purposeful Rounding, an assessment of your patient's venous access was performed central hospital theVascular Access Service. The following tasks [...] RN - 06/21/2024 8:31 AM EST During [facility] Purposeful Rounding, an assessment of your patient's venous access was performed central hospital theVascular Access Service. The following tasks [...] or weekly) [] Other * Alejandra Baumann, VICE PRESIDENT PROCESS - 06/21/2024 7:05 AM EST Follow Up [...] MARIALUISA clipping. PMH of chronic HFrEF s/p DIRECTOR OF ENTERTAINMENT/ICD, IDDM2, HTN, HLD, remote melanoma, active smoker. [...] 2 tablespoons of dried fruit. Milk and yn-tqark-crkxd yogurt have 15 grams of carbs in a serving. A serving is 1 cup of milk or 3/4 cup (6 oz) of ge-uagea-xlkui yogurt. Starchy vegetables have 15 grams of carbs in a serving. A serving is ?? cup of mashed potatoes or sweet potato; 1 cup winter squash; ?? of a small baked potato; ?? cup of cooked beans; or ?? cup cooked corn or green peas. Learn how much carbs to eat each day and at each meal. A dietitian or certified scrum master can teach you how to keep track [...] cheese, and peanut butter. Alejandra Baumann APRN [facility] Endocrinology Diabetes Management Pager [phone] Weekends please page [phone] * Eric Packer PA - 06/20/2024 7:44 AM EST Cardiac Surgery Progress Note George Mehta is a 69 y.o. male with a history of CAD s/p multiple PCI who presented with an anterior STEMI and was given lytics. Cath showed MV CAD without culprit vessel. He is now 6 Days Post-OpCABGx3 and MARIALUISA clipping. PMH of chronic HFrEF s/p DIRECTOR OF ENTERTAINMENT/ICD, IDDM2, HTN, HLD, remote melanoma, active smoker. [...] clip. 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 06/20/2024 Between the hours of 1800 - 0600 and on the weekends please page [phone]. * Alejandra Baumann APRN - 06/20/2024 7:21 AM EST Follow Up Diabetes Consult Patient Interview Blood glucose values and insulin use reviewed. terrazzo grinder BG to 59 despite decrease in glargine [...] MARIALUISA clipping. PMH of chronic HFrEF s/p DIRECTOR OF ENTERTAINMENT/ICD, IDDM2, HTN, HLD, remote melanoma, active smoker. terrazzo grinder BG to 59 despite decrease in glargine [...] before meals based on ISF 20 Alejandra Sublette, VICE PRESIDENT PROCESS [facility] Endocrinology Diabetes Management Pager [phone] Weekends please page [phone] Insulin Discharge Instructions Preliminary Diabetes Discharge Instructions [...] juice or regular (not diet) soda 6 WAFU small box of raisins 4 glucose tablets [...] 2 tablespoons of dried fruit. Milk and ct-btgvo-mmbuw yogurt have 15 grams of carbs in a serving. A serving is 1 cup of milk or 3/4 cup (6 oz) of wl-axppa-ggoyc yogurt. Starchy vegetables have 15 grams of carbs in a serving. A serving is ?? cup of mashed potatoes or sweet potato; 1 cup winter squash; ?? of a small baked potato; ?? cup of cooked beans; or ?? cup cooked corn or green peas. Learn how much carbs to eat each day and at each meal. A dietitian or certified scrum master can teach you how to keep track [...] MARIALUISA clipping. PMH of chronic HFrEF s/p DIRECTOR OF ENTERTAINMENT/ICD, IDDM2, HTN, HLD, remote melanoma, active smoker. 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 Jeffy Hood MD 06/19/2024 Between the hours of 1800 - 0600 and on the weekends please page [phone]. * Alejandra Baumann APRN - 06/19/2024 7:09 AM EST Follow Up Diabetes Consult Patient Interview Blood glucose values and insulin use reviewed. Jardiance added back yesterday, ware server low BGto 51. Glargine reduced to 45 [...] MARIALUISA clipping. PMH of chronic HFrEF s/p DIRECTOR OF ENTERTAINMENT/ICD, IDDM2, HTN, HLD, remote melanoma, active smoker. Jardiance added back yesterday. terrazzo grinder low BG to 51. Glargine reduced to [...] 2 tablespoons of dried fruit. Milk and xa-ywubp-yweor yogurt have 15 grams of carbs in a serving. A serving is 1 cup of milk or 3/4 cup (6 oz) of yn-cpjqr-wmzyx yogurt. Starchy vegetables have 15 grams of carbs in a serving. A serving is ?? cup of mashed potatoes or sweet potato; 1 cup winter squash; ?? of a small baked potato; ?? cup of cooked beans; or ?? cup cooked corn or green peas. Learn how much carbs to eat each day and at each meal. A dietitian or certified scrum master can teach you how to keep track [...] cheese, and peanut butter. Alejandra Baumann APRN [facility] Endocrinology Diabetes Management Pager [phone] Weekends please page [phone] * Hilda Resendez PTA - 06/18/2024 9:19 AM EST Physical Therapy Note 2 Patient profile: George Mehta is a 69 y.o. male with a history of CAD s/p multiple PCI who presented with an anterior STEMI and was given lytics. Cath showed MV CAD without culprit vessel. He is now 1 Day Post-Op CABGx3 and MARIALUISA clipping. PMH of chronic HFrEF s/p DIRECTOR OF ENTERTAINMENT/ICD, IDDM2, HTN, HLD, remote melanoma, active smoker. Interval History: Per last cardiac surgery note on 06/18/2024 Cr improved 1.4 on lasix 40 iv bid -1.5L, made 2.5L urine Coreg, entresto restarted Floor status Social History: Pt lives with his in a 1 level apartment with no steps to enter. 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 He sleeps in a recliner at baseline. Precautions/Special Considerations: Sternal precautions, PIV, at risk to fall, PPM Mobility and Positioning Recommendations: Pt to utilize no AD, supervision for ambulation and transfers w/ staffing manager as able. Please encourage up to [...] least restrictive device Time IN / OUT: 4112-6163 Total Time: 11 minutes; TEF 1 Hilda Resendez PTA Pager: [phone] Physical Therapy Inpatient Rehabilitation Department * Keila [...] MARIALUISA clipping. PMH of chronic HFrEF s/p DIRECTOR OF ENTERTAINMENT/ICD, IDDM2, HTN, HLD, remote melanoma, active smoker. 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 Restarting jardiance #Active smoker Duoneb prn Dispo: CVCC, Full code, tx to floor Discussed with attending surgeon on rounds this morning. KEILA HANLEY, JOSÉ ANTONIO 06/18/2024 Between the hours of 1800 - 0600 and on the weekends please page [phone]. * Alejandra Baumann APRN - 06/17/2024 3:29 [...] MARIALUISA clipping. PMH of chronic HFrEF s/p DIRECTOR OF ENTERTAINMENT/ICD, IDDM2, HTN, HLD, remote melanoma, active smoker. [...] based on ISF 20 Alejandra Baumann APRN [facility] Endocrinology Diabetes Management Pager [phone] Weekends please page [phone] 35 minutes were spent over the course [...] MARIALUISA clipping. PMH of chronic HFrEF s/p DIRECTOR OF ENTERTAINMENT/ICD, IDDM2, HTN, HLD, remote melanoma, active smoker. [...] 0600 and on the weekends please page [phone]. * Raymond Carlton MD - 06/16/2024 1:11 PM EST CARDIAC CRITICAL CARE ATTENDING STAFF PROGRESS NOTE Patient seen and examined. George Mehta is a 69 y.o. male with: Active Hospital Problems Diagnosis STEMI (ST elevation myocardial infarction) Cardiac resynchronization therapy defibrillator (DIRECTOR OF ENTERTAINMENT-D) - Medtronic Amplia Cardiomyopathy, ischemic Acute on chronic heart failure with reduced ejection fraction (HFrEF, <= 40%) Coronary artery disease involving kake coronary artery of kake heart without angina pectoris Type 2 diabetes [...] encouragement provided Patient screened for f/u and insurance underwriter sales met pt at bedside. Pt states his [...] unless consulted in the interim. RICHA Simmons Fax Machine Operator * Octaviano Horvath PA - 06/16/2024 8:07 AM EST Cardiac Surgery Progress Note George Mehta is a 69 y.o. male with a history of CAD s/p multiple PCI who presented with an anterior STEMI and was given lytics. Cath showed MV CAD without culprit vessel. He is now 2 Days Post-OpCABGx3 and MARIALUISA clipping. PMH of chronic HFrEF s/p DIRECTOR OF ENTERTAINMENT/ICD, IDDM2, HTN, HLD, remote melanoma, active smoker. [...] 0600 and on the weekends please page [phone]. * Jono Fernandez, PT - 06/15/2024 4:09 PM EST Physical Therapy Evaluation Patient profile: George Mehta is a 69 y.o. male with a history of CAD s/p multiple PCI who presented with an anterior STEMI and was given lytics. Cath showed MV CAD without culprit vessel. He is now 1 Day Post-Op CABGx3 and MARIALUISA clipping. PMH of chronic HFrEF s/p DIRECTOR OF ENTERTAINMENT/ICD, IDDM2, HTN, HLD, remote melanoma, active smoker. 24h Events: From OR on Dobutamine IABP removed Bedrest ended ~2100, sedation weaned Extubated ~0200 Dobutamine weaned to 1 this morning, CI 2.6, shut off and repeat CI 2.4 Social History: Pt lives with his in a 1 level apartment with no steps to enter. 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 He sleeps [...] outlined inthis evaluation. JONO FERNANDEZ, PT Pager: [phone] Physical Therapy Inpatient Rehabilitation Department Time IN / OUT: 4618-7220 Total Time: 33 (eval) minutes * Alejandra Baumann APRN - 06/15/2024 11:39 AM EST Follow Up Diabetes Consult Patient Interview Blood glucose values and insulin use reviewed. Pt remains on an insulin drip today following [id number] MARIALUISA clipping. George continues to complain of [...] MARIALUISA clipping. PMH of chronic HFrEF s/p DIRECTOR OF ENTERTAINMENT/ICD, IDDM2, HTN, HLD, remote melanoma, active smoker. [...] based on ISF 20 Alejandra Baumann APRN [facility] Endocrinology Diabetes Management Pager [phone] Weekends please page [phone] 50 minutes were spent over the course [...] elevation myocardial infarction) Cardiac resynchronization therapy defibrillator (DIRECTOR OF ENTERTAINMENT-D) - Medtronic Amplia Cardiomyopathy, ischemic Acute on chronic heart failure with reduced ejection fraction (HFrEF, <= 40%) Coronary artery disease involving kake coronary artery of kake heart without angina pectoris Type 2 diabetes [...] with h/o DM, CAD with prior PCI, DIRECTOR OF ENTERTAINMENT-D who presented with crushing chest pain, found [...] MARIALUISA clipping. PMH of chronic HFrEF s/p DIRECTOR OF ENTERTAINMENT/ICD, IDDM2, HTN, HLD, remote melanoma, active smoker. [...] sternotomy dressing CDI, saphenectomy dressing CDi Tubes/Lines/Drains: [place], RIJ, A-line, Mediastinal marcos and bilateral pleural [...] 0600 and on the weekends please page [phone]. * Yoli Donaldson RCP - 06/15/2024 5:35 [...] with h/o DM, CAD with prior PCI, DIRECTOR OF ENTERTAINMENT-D who presented with crushing chest pain, found [...] with h/o DM, CAD with prior PCI, DIRECTOR OF ENTERTAINMENT-D who presented with crushing chest pain, found [...] 0600 and on the weekends please page [phone]. * Chloé Cortez - 06/14/2024 9:36 AM [...] unless consulted in the interim. Chloé Cortez Marketing Support Coordinator * Jim Benites MD - 06/13/2024 1:15 [...] - Mildly dilated left ventricle size with zzhzndfw-yq-hmmpvett decreased LV systolic function. LV ejection fraction [...] ACS/crushing chest pain, likely due to lateral ND, found to have surgical CAD with viability [...] (abstinent since admission), ASCVD with multiple prior ND and PCIs, ICM/HFrEF LVEF 30% (all territories [...] elevation myocardial infarction) Cardiac resynchronization therapy defibrillator (DIRECTOR OF ENTERTAINMENT-D) - Medtronic Amplia Cardiomyopathy, ischemic Acute on chronic heart failure with reduced ejection fraction (HFrEF, <= 40%) Coronary artery disease involving kake coronary artery of kake heart without angina pectoris Type 2 diabetes [...] PCP: Mauro Berumen MD PCP phone number: [phone] Date of Admission: 06/02/2024 ( Hospital Day 10 days ) Attending:Ethel Carrillo MD ID: 69 y.o. male with a h/o DM type 2, HTN, HLD, current smoker (2-3 cigarettes/day), HFrEF with anICD for low EF (~30%), and CAD with prior ND x3 with JENNA placed in [place], [facility], PAD, presented to [facility] with 1 hour of retrosternal CP (05/13) while watching TV, found to have STEMI. Active Problems: Active Hospital Problems Diagnosis STEMI (ST elevation myocardial infarction) Cardiac resynchronization therapy defibrillator (DIRECTOR OF ENTERTAINMENT-D) - Medtronic Amplia Cardiomyopathy, ischemic Acute on chronic heart failure with reduced ejection fraction (HFrEF, <= 40%) Coronary artery disease involving kake coronary artery of kake heart without angina pectoris Type 2 diabetes [...] in the last 7068 hours. Invalid input(s): [id number] Recent Labs 06/12/24 0425 06/11/24 2356 06/11/24 2025 06/11/24 1624 06/11/24 1108 06/11/24 0748 06/11/24 0357 06/11/24 0050 06/10/24 1922 06/10/24 1735 06/10/24 1125 06/10/24 0746 POCGLU 132 135 210* 81 233* 184 132 144 236* 123 216* 206* Heme No results for input(s): LDH, HAPTOGLOBIN, URICACID in the last 168 hours. ABG (Arterial Blood Gas) No results found for: PHART, PO2ART, LWA1ACV, TEJ1XSS Microbiology: Microbiology Results (Last 30 days) No results found for the last 720 hours. Imaging: Results for orders placed or performed during the hospital encounter of 06/02/24 XR Chest One View (Exam End: 06/03/2024 2:41 AM) Result Value WORKSTATION ID [id number] Impression No radiographically evident acute cardiopulmonary process. Thank you for letting us participate in the care of this patient. If you are a health care provider and have any questions regarding this report, please contact the number below. For patients who have questions please contact the health skin care therapist that requested your imaging first. Electronically signed by: Corazon Mauro MD, [facility] ([phone]), at 06/03/2024 3:06 AM MRI Cardiac Morphology Function wwo Contrast (Exam End: 06/07/2024 1:10 PM) Result Value WORKSTATION ID [id number] Impression - Findings consistent with an ischemic [...] - Mildly dilated left ventricle size with gyewjlpf-pe-eegppidu decreased LV systolic function. LV ejection fraction [...] who have questions please contact the health skin care therapist that requested your imaging first. Electronically signed by: Kriss Alonzo MD, [facility] ([phone]), at 06/07/2024 2:[address] Chest wo Contrast (Generic) (Exam End: 06/03/2024 4:33 PM) Result Value WORKSTATION ID [id number] Impression Cardiomegaly. Biventricular ICD leads in place. Thank you for letting us participate in the care of this patient. If you are a health care provider and have any questions regarding this report, please contact the number below. For patients who have questions please contact the health skin care therapist that requested your imaging first. Electronically signed by: Stuart Aponte MD, [facility] ([phone]), at 06/03/2024 4:47 PM XR Chest PA & Lateral (Generic) (Exam End: 06/07/2024 7:03 AM) Result Value WORKSTATION ID [id number] Impression Biventricular ICD leads intact and in [...] who have questions please contact the health skin care therapist that requested your imaging first. Electronically signed by: Stuart Aponte MD, [facility] ([phone]), at 06/07/2024 10:45 AM TTE: Limited echo performed by fellow refrigeration mechanic helper to assess LV function. Left ventricle is [...] ischemic cardiomyopathy with HFrEF (~30% EF), prior ND with stents, DM type 2, HTN, HLD, active smoker, presented with anterior STEMI. Angiography revealed severe multivessel CAD with extensive calcification and YUE 3 flow in all vessels, without a clear culprit lesion. Currently pain-free after TNK, Plavix, ASA, and heparin, with mildly elevated LVEDP at 40 mmHg and mild volume overload. 06/12/24: Patient stable, asymptomatic. Plan to go to manager cardiac cath for balloon pump tomorrow, then willgo to [...] CODE Dain Colón MD Cardiology, M1-S2, Pager #[phone] 06/12/24 Associated attestation - Ethel Carrillo MD [...] (abstinent since admission), ASCVD with multiple prior ND and PCIs, ICM/HFrEF LVEF 30% (all territories [...] of two midnights or is on the [facility] inpatient only procedure list (status C) due to: acute myocardial infarction requiring titration of IV medication and fluid monitoring and decompensated congestive heart failure requiring IV medication and fluid monitoring Ethel Carrillo MD Cardiovascular Medicine Personal Pager [phone] 06/12/2024 9:12 PM * Jaleesa Baumannewa Adams, VICE PRESIDENT PROCESS - 06/11/2024 4:21 PM EST Images from [...] too aggressive, suggest ICR 1:6 (rule of [id number] = 6.25). George is up and walking [...] ischemic cardiomyopathy with HFrEF (~30% EF), prior ND with stents, DM type 2, HTN, HLD, [...] ac, metformin 1000mg BID Alejandra Baumann APRN [facility] Endocrinology Diabetes Management Pager [phone] Weekends please page [phone] 35 minutes were spent over the course [...] PCP: Mauro Berumen MD PCP phone number: [phone] Date of Admission: 06/02/2024 ( Hospital Day 9 days ) Attending:Melida Valdes MD ID: 69 y.o. male with a h/o DM type 2, HTN, HLD, current smoker (2-3 cigarettes/day), HFrEF with anICD for low EF (~30%), and CAD with prior ND x3 with JENNA placed in [place], [facility], PAD, presented to [facility] with 1 hour of retrosternal CP (05/13) while watching TV, found to have STEMI. Active Problems: Active Hospital Problems Diagnosis STEMI (ST elevation myocardial infarction) Cardiac resynchronization therapy defibrillator (DIRECTOR OF ENTERTAINMENT-D) - Medtronic Amplia Cardiomyopathy, ischemic Acute on chronic heart failure with reduced ejection fraction (HFrEF, <= 40%) Coronary artery disease involving kake coronary artery of kake heart without angina pectoris Type 2 diabetes [...] in the last 7068 hours. Invalid input(s): [id number] Recent Labs 06/11/24 0357 06/11/24 0050 06/10/24 1922 06/10/24 1735 06/10/24 1125 06/10/24 0746 06/10/24 0423 06/10/24 0005 06/09/24 2036 06/09/24 1727 06/09/24 1152 06/09/24 0810 POCGLU 132 144 236* 123 216* 206* 154 125 197 174 211* 209* Heme No results for input(s): LDH, HAPTOGLOBIN, URICACID in the last 168 hours. ABG (Arterial Blood Gas) No results found for: PHART, PO2ART, AHQ8LYL, RXE1RXU Microbiology: Microbiology Results (Last 30 days) No results found for the last 720 hours. Imaging: Results for orders placed or performed during the hospital encounter of 06/02/24 XR Chest One View (Exam End: 06/03/2024 2:41 AM) Result Value WORKSTATION ID [id number] Impression No radiographically evident acute cardiopulmonary process. Thank you for letting us participate in the care of this patient. If you are a health care provider and have any questions regarding this report, please contact the number below. For patients who have questions please contact the health skin care therapist that requested your imaging first. Electronically signed by: Corazon Mauro MD, [facility] ([phone]), at 06/03/2024 3:06 AM MRI Cardiac Morphology Function wwo Contrast (Exam End: 06/07/2024 1:10 PM) Result Value WORKSTATION ID [id number] Impression - Findings consistent with an ischemic [...] - Mildly dilated left ventricle size with acufkucf-ed-xyihsffa decreased LV systolic function. LV ejection fraction [...] who have questions please contact the health skin care therapist that requested your imaging first. Electronically signed by: Kriss Alonzo MD, [facility] ([phone]), at 06/07/2024 2:[address] Chest wo Contrast (Generic) (Exam End: 06/03/2024 4:33 PM) Result Value WORKSTATION ID [id number] Impression Cardiomegaly. Biventricular ICD leads in place. Thank you for letting us participate in the care of this patient. If you are a health care provider and have any questions regarding this report, please contact the number below. For patients who have questions please contact the health skin care therapist that requested your imaging first. Electronically signed by: Stuart Aponte MD, [facility] ([phone]), at 06/03/2024 4:47 PM XR Chest PA & Lateral (Generic) (Exam End: 06/07/2024 7:03 AM) Result Value WORKSTATION ID [id number] Impression Biventricular ICD leads intact and in [...] who have questions please contact the health skin care therapist that requested your imaging first. Electronically signed by: Stuart Aponte MD, [facility] ([phone]), at 06/07/2024 10:45 AM TTE: Limited echo performed by fellow refrigeration mechanic helper to assess LV function. Left ventricle is [...] ischemic cardiomyopathy with HFrEF (~30% EF), prior ND with stents, DM type 2, HTN, HLD, [...] on placing this weekend and transfer to [facility], likely [place]. #ASCVD / STEMI: -Holding Plavix; [...] CODE Dain Colón MD Cardiology, M1-S2, Pager #[phone] 06/11/24 Associated attestation - Ethel Carrillo MD [...] (abstinent since admission), ASCVD with multiple prior ND and PCIs, ICM/HFrEF LVEF 30% (all territories [...] of two midnights or is on the [facility] inpatient only procedure list (status C) due to: acute myocardial infarction requiring titration of IV medication and fluid monitoring and decompensated congestive heart failure requiring IV medication and fluid monitoring Ethel Carrillo MD Cardiovascular Medicine Personal Pager [phone] 06/11/2024 9:35 PM * Hilary Belle - 06/10/2024 12:39 PM EST Nutrition Services Note George Mehta is a 69 y.o. male Reason for intervention: hospital day 9 Nutrition Plan: Continue diet order: 60/60/75 CHO Level 2 Encourage good PO Lasix and Insulin noted Monitor weight Patient scheduled for a hospital day 9 nutrition evaluation. Lead Section Supervisor attempted to meet with pt at bedside [...] unless consulted in the interim. Hilary Belle Fax Machine Operator * Mariia Montero RN - 06/10/2024 12:23 PM EST I have met with the patient to: discuss discharge planning needs. provide the [facility], Office of Care Management letter from the Swat Team Member pertaining to rehab referrals. provide a letter describing our affiliations within the [facility] and educate about their right to choose where referrals are sent. provide a list of Home Health Agencies / Durable Medical Equipment vendors which serve their preferred geographic area. provided patient with [facility] Star Quality Rating handout. They have requested referrals to: [facility] [address] [place] [phone] RN / PT Anticipated d/c date: 06/20/24 Note routed to a Precise Winder who will communicate referrals to facilities and provide any required information. * Dain Colón MD - 06/10/2024 7:17 AM EST Images from the original note were not included. . Cardiology Progress Note Patient info: Name: George Mehta : 1955 PCP: Mauro Berumen MD PCP phone number: [phone] Date of Admission: 06/02/2024 ( Hospital Day 8 days ) Attending:Melida Valdes MD ID: 69 y.o. male with a h/o DM type 2, HTN, HLD, current smoker (2-3 cigarettes/day), HFrEF with anICD for low EF (~30%), and CAD with prior ND x3 with JENNA placed in [place], Melanoma, PAD, presented to [facility] with 1 hour of retrosternal CP (05/13) while watching TV, found to have STEMI. Active Problems: Active Hospital Problems Diagnosis STEMI (ST elevation myocardial infarction) Cardiac resynchronization therapy defibrillator (DIRECTOR OF ENTERTAINMENT-D) - Medtronic Amplia Cardiomyopathy, ischemic Acute on chronic heart failure with reduced ejection fraction (HFrEF, <= 40%) Coronary artery disease involving kake coronary artery of kake heart without angina pectoris Type 2 diabetes [...] in the last 7068 hours. Invalid input(s): [id number] Recent Labs 06/10/24 0423 06/10/24 0005 06/09/24 2036 06/09/24 1727 06/09/24 1152 06/09/24 0810 06/09/24 0440 06/09/24 0034 06/08/24 2027 06/08/24 1616 06/08/24 1235 06/08/24 0810 POCGLU 154 125 197 174 211* 209* 131 186 176 159 226* 190 Heme No results for input(s): LDH, HAPTOGLOBIN, URICACID in the last 168 hours. ABG (Arterial Blood Gas) No results found for: PHART, PO2ART, NZX0GYR, RUR4FJJ Microbiology: Microbiology Results (Last 30 days) No results found for the last 720 hours. Imaging: Results for orders placed or performed during the hospital encounter of 06/02/24 XR Chest One View (Exam End: 06/03/2024 2:41 AM) Result Value WORKSTATION ID [id number] Impression No radiographically evident acute cardiopulmonary process. Thank you for letting us participate in the care of this patient. If you are a health care provider and have any questions regarding this report, please contact the number below. For patients who have questions please contact the health skin care therapist that requested your imaging first. Electronically signed by: Corazon Mauro MD, [facility] ([phone]), at 06/03/2024 3:06 AM MRI Cardiac Morphology Function wwo Contrast (Exam End: 06/07/2024 1:10 PM) Result Value WORKSTATION ID [id number] Impression - Findings consistent with an ischemic [...] - Mildly dilated left ventricle size with fiusbkwf-zr-skemhocq decreased LV systolic function. LV ejection fraction [...] who have questions please contact the health skin care therapist that requested your imaging first. Electronically signed by: Kriss Alonzo MD, [facility] ([phone]), at 06/07/2024 2:[address] Chest wo Contrast (Generic) (Exam End: 06/03/2024 4:33 PM) Result Value WORKSTATION ID [id number] Impression Cardiomegaly. Biventricular ICD leads in place. Thank you for letting us participate in the care of this patient. If you are a health care provider and have any questions regarding this report, please contact the number below. For patients who have questions please contact the health skin care therapist that requested your imaging first. Electronically signed by: Stuart Aponte MD, [facility] ([phone]), at 06/03/2024 4:47 PM XR Chest PA & Lateral (Generic) (Exam End: 06/07/2024 7:03 AM) Result Value WORKSTATION ID [id number] Impression Biventricular ICD leads intact and in [...] who have questions please contact the health skin care therapist that requested your imaging first. Electronically signed by: Stuart Aponte MD, [facility] ([phone]), at 06/07/2024 10:45 AM TTE: Limited echo performed by fellow refrigeration mechanic helper to assess LV function. Left ventricle is [...] ischemic cardiomyopathy with HFrEF (~30% EF), prior ND with stents, DM type 2, HTN, HLD, [...] plan on placing this and transfer to [facility], likely Friday. #ASCVD / STEMI: -Holding Plavix; [...] CODE Dain Colón MD Cardiology, M1-S2, Pager #[phone] 06/10/24 Associated attestation - Melida Valdes MD [...] a lytic and brought directly to the [employer]. Cardiac catheterization demonstrated multivessel disease with severe [...] who is agreeable Melida Valdes MD Staff Clinical Trial Leader * Cherelle Fregoso APRN - 06/09/2024 8:59 [...] ischemic cardiomyopathy with HFrEF (~30% EF), prior ND with stents, DM type 2, HTN, HLD, [...] Cardiology Progress Note Patient info: Name: George Metha : 1955 PCP: Mauro Berumen MD PCP phone number: [phone] Date of Admission: 06/02/2024 ( Hospital Day 7 days ) Attending:Mleida Vadles MD ID: 69 y.o. male with a h/o DM type 2, HTN, HLD, current smoker (2-3 cigarettes/day), HFrEF with anICD for low EF (~30%), and CAD with prior ND x3 with JENNA placed in [place], Melanoma, PAD, presented to [facility] with 1 hour of retrosternal CP (05/13) while watching TV, found to have STEMI. Active Problems: Active Hospital Problems Diagnosis STEMI (ST elevation myocardial infarction) Acute on chronic heart failure with reduced ejection fraction (HFrEF, <= 40%) Coronary artery disease involving kake coronary artery of kake heart without angina pectoris Type 2 diabetes [...] in the last 7068 hours. Invalid input(s): [id number] Recent Labs 06/09/24 0440 06/09/24 0034 06/08/24 2027 06/08/24 1616 06/08/24 1235 06/08/24 0810 06/08/24 0409 06/07/24 2357 06/07/24 2005 06/07/24 1631 06/07/24 1105 06/07/24 1103 POCGLU 131 186 176 159 226* 190 151 188 118 174 221* 250* Heme No results for input(s): LDH, HAPTOGLOBIN, URICACID in the last 168 hours. ABG (Arterial Blood Gas) No results found for: PHART, PO2ART, ZDG2SZY, SBP2WOJ Microbiology: Microbiology Results (Last 30 days) No results found for the last 720 hours. Imaging: Results for orders placed or performed during the hospital encounter of 06/02/24 XR Chest One View (Exam End: 06/03/2024 2:41 AM) Result Value WORKSTATION ID [id number] Impression No radiographically evident acute cardiopulmonary process. Thank you for letting us participate in the care of this patient. If you are a health care provider and have any questions regarding this report, please contact the number below. For patients who have questions please contact the health skin care therapist that requested your imaging first. Electronically signed by: Corazon Mauro MD, [facility] ([phone]), at 06/03/2024 3:06 AM MRI Cardiac Morphology Function wwo Contrast (Exam End: 06/07/2024 1:10 PM) Result Value WORKSTATION ID [id number] Impression - Findings consistent with an ischemic [...] - Mildly dilated left ventricle size with knlkueed-sh-aeowdqhe decreased LV systolic function. LV ejection fraction [...] who have questions please contact the health skin care therapist that requested your imaging first. Electronically signed by: Kriss Alonzo MD, [facility] ([phone]), at 06/07/2024 2:[address] Chest wo Contrast (Generic) (Exam End: 06/03/2024 4:33 PM) Result Value WORKSTATION ID [id number] Impression Cardiomegaly. Biventricular ICD leads in place. Thank you for letting us participate in the care of this patient. If you are a health care provider and have any questions regarding this report, please contact the number below. For patients who have questions please contact the health skin care therapist that requested your imaging first. Electronically signed by: Stuart Aponte MD, [facility] ([phone]), at 06/03/2024 4:47 PM XR Chest PA & Lateral (Generic) (Exam End: 06/07/2024 7:03 AM) Result Value WORKSTATION ID [id number] Impression Biventricular ICD leads intact and in [...] who have questions please contact the health skin care therapist that requested your imaging first. Electronically signed by: Stuart Aponte MD, [facility] ([phone]), at 06/07/2024 10:45 AM TTE: Limited echo performed by fellow refrigeration mechanic helper to assess LV function. Left ventricle is [...] Infusions: heparin (porcine) infusion 1,400 Units/hr (06/08/24 575) PRN Meds:.glucose 40% oral geL OR dextrose [...] ischemic cardiomyopathy with HFrEF (~30% EF), prior ND with stents, DM type 2, HTN, HLD, [...] CODE Dain Colón MD Cardiology, M1-S2, Pager #[phone] 06/09/24 Associated attestation - Melida Valdes MD [...] a lytic and brought directly to the [employer]. Cardiac catheterization demonstrated multivessel disease with severe [...] insertion low EF. Melida Valdes MD Staff Clinical Trial Leader * Alejandra Baumann, JOSÉ ANTONIO - 06/08/2024 [...] ischemic cardiomyopathy with HFrEF (~30% EF), prior ND with stents, DM type 2, HTN, HLD, [...] to optimize glucose control Alejandra Baumann APRN [facility] Endocrinology Diabetes Management Pager [phone] Weekends please page [phone] 35 minutes were spent over the course [...] PCP: Mauro Berumen MD PCP phone number: [phone] Date of Admission: 06/02/2024 ( Hospital Day 6 days ) Attending:Melida Valdes MD ID: 69 y.o. male with a h/o DM type 2, HTN, HLD, current smoker (2-3 cigarettes/day), HFrEF with anICD for low EF (~30%), and CAD with prior ND x3 with JENNA placed in [place], Melanoma, PAD, presented to [facility] with 1 hour of retrosternal CP (05/13) while watching TV, found to have STEMI. Active Problems: Active Hospital Problems Diagnosis STEMI (ST elevation myocardial infarction) Acute on chronic heart failure with reduced ejection fraction (HFrEF, <= 40%) Coronary artery disease involving kake coronary artery of kake heart without angina pectoris Type 2 diabetes [...] in the last 7068 hours. Invalid input(s): [id number] Recent Labs 06/08/24 0409 06/07/24 2357 06/07/24 2005 06/07/24 1631 06/07/24 1105 06/07/24 1103 06/07/24 0745 06/07/24 0425 06/07/24 0008 06/06/24201706/06/24 1539 06/06/24 1339 POCGLU 151 188 118 174 221* 250* 175 127 182 143 147 317* Heme No results for input(s): LDH, HAPTOGLOBIN, URICACID in the last 168 hours. ABG (Arterial Blood Gas) No results found for: PHART, PO2ART, UTN2FNE, EFH6DKL Microbiology: Microbiology Results (Last 30 days) No results found for the last 720 hours. Imaging: Results for orders placed or performed during the hospital encounter of 06/02/24 XR Chest One View (Exam End: 06/03/2024 2:41 AM) Result Value WORKSTATION ID [id number] Impression No radiographically evident acute cardiopulmonary process. Thank you for letting us participate in the care of this patient. If you are a health care provider and have any questions regarding this report, please contact the number below. For patients who have questions please contact the health skin care therapist that requested your imaging first. Electronically signed by: Corazon Mauro MD, [facility] ([phone]), at 06/03/2024 3:06 AM MRI Cardiac Morphology Function wwo Contrast (Exam End: 06/07/2024 1:10 PM) Result Value WORKSTATION ID [id number] Impression - Findings consistent with an ischemic [...] - Mildly dilated left ventricle size with bascwdwc-gu-bfrrdzsx decreased LV systolic function. LV ejection fraction [...] who have questions please contact the health skin care therapist that requested your imaging first. Electronically signed by: Kriss Alonzo MD, [facility] ([phone]), at 06/07/2024 2:[address] Chest wo Contrast (Generic) (Exam End: 06/03/2024 4:33 PM) Result Value WORKSTATION ID [id number] Impression Cardiomegaly. Biventricular ICD leads in place. Thank you for letting us participate in the care of this patient. If you are a health care provider and have any questions regarding this report, please contact the number below. For patients who have questions please contact the health skin care therapist that requested your imaging first. Electronically signed by: Stuart Aponte MD, [facility] ([phone]), at 06/03/2024 4:47 PM XR Chest PA & Lateral (Generic) (Exam End: 06/07/2024 7:03 AM) Result Value WORKSTATION ID [id number] Impression Biventricular ICD leads intact and in [...] who have questions please contact the health skin care therapist that requested your imaging first. Electronically signed by: Stuart Aponte MD, [facility] ([phone]), at 06/07/2024 10:45 AM TTE: Limited echo performed by fellow refrigeration mechanic helper to assess LV function. Left ventricle is [...] Infusions: heparin (porcine) infusion 1,400 Units/hr (06/08/24 1442) PRN Meds:.insulin lispro, potassium chloride ER OR [...] ischemic cardiomyopathy with HFrEF (~30% EF), prior ND with stents, DM type 2, HTN, HLD, [...] CODE Dain Colón MD Cardiology, M1-S2, Pager #[phone] 06/08/24 Associated attestation - Melida Valdes MD [...] a lytic and brought directly to the [employer]. Cardiac catheterization demonstrated multivessel disease with severe [...] Otherwise clinically stable Melida Valdes MD Staff Clinical Trial Leader * Ross Mnauel PA - 06/07/2024 12:00 PM EST Cardiac Electrophysiology CIED Interrogation/Programming Note Asked by MRI staff to evaluate and program Medtronic DIRECTOR OF ENTERTAINMENT-D to allow for MR imaging. Patient Active Problem List Diagnosis ','STEMI (ST elevation myocardial infarction) Acute on chronic heart failure with reduced ejection fraction (HFrEF, <= 40%) Coronary artery disease involving kake coronary artery of kake heart without angina pectoris Type 2 diabetes mellitus Device Data: [employer] Amplia MRI Quad DIRECTOR OF ENTERTAINMENT-D [id number] #[id number] 06/16/2019 RA Medtronic 4076 CapSureFix Novus [id number] 06/16/2019 RV Medtronic [id number] 06/16/2019 LV Medtronic 4298 Attain Performa MRI [id number] 06/16/2019 DDD @ 50/130/130 Adaptive Bi-V and LV VF >188bpm ATP, 35j x6 FVT >188-222bpm burst 2, 35jx5 VT Battery longevity: 2.5yrs; charge time 4s P wave: 2.3mV R wave: >20.0mV Atrial impedance: 458 ohms RV impedance: 646 ohms LV impedance: 722 ohms Atrial threshold: 0.5V @ 0.4ms RV threshold: LV threshold: 1.75V @ 0.4ms AP 0.2% ELECTRIC SHAVER MECHANIC 97.7% AT/AF 0% Impression and Plan: 1. Interrogated device to determine suitability for MRI 2. Programmed to MRI safe mode - VOO @ 70 3. Scan performed 4. Programming restored to baseline settings 5. Reinterrogated to verify appropriate function and settings 6. Device follow up as previously scheduled Provider: HENOK Meyer EP Consult attending physician: Libby Barton MD EP Consult positional pager #[phone](EPMD) EP Device interrogation positional pager # [phone] * Dain Colón MD - 06/07/2024 7:09 AM EST Images from the original note were not included. . Cardiology Progress Note Patient info: Name: George Mehta : 1955 PCP: Mauro Berumen MD PCP phone number: [phone] Date of Admission: 06/02/2024 ( Hospital Day 5 days ) Attending:Melida Valdes MD ID: 69 y.o. male with a h/o DM type 2, HTN, HLD, current smoker (2-3 cigarettes/day), HFrEF with anICD for low EF (~30%), and CAD with prior ND x3 with JENNA placed in [place], Melanoma, PAD, presented to [facility] with 1 hour of retrosternal CP (05/13) while watching TV, found to have STEMI. Active Problems: Active Hospital Problems Diagnosis STEMI (ST elevation myocardial infarction) Acute on chronic heart failure with reduced ejection fraction (HFrEF, <= 40%) Coronary artery disease involving kake coronary artery of kake heart without angina pectoris Type 2 diabetes [...] in the last 7068 hours. Invalid input(s): [id number] Recent Labs 06/07/24 0425 06/07/24 0008 06/06/24 2018 06/06/24 1539 06/06/24 1339 06/06/24 1134 06/06/24 0757 06/06/24 0653 06/05/24 2231 06/05/24 1622 06/05/24 1134 06/05/24 0727 POCGLU 127 182 143 147 317* 264* 195 187 238* 205* 211* 166 Heme No results for input(s): LDH, HAPTOGLOBIN, URICACID in the last 168 hours. ABG (Arterial Blood Gas) No results found for: PHART, PO2ART, ZYF6CNH, FTG6DHV Microbiology: Microbiology Results (Last 30 days) No results found for the last 720 hours. Imaging: Results for orders placed or performed during the hospital encounter of 06/02/24 XR Chest One View (Exam End: 06/03/2024 2:41 AM) Result Value WORKSTATION ID [id number] Impression No radiographically evident acute cardiopulmonary process. Thank you for letting us participate in the care of this patient. If you are a health care provider and have any questions regarding this report, please contact the number below. For patients who have questions please contact the health skin care therapist that requested your imaging first. Electronically signed by: Corazon Mauro MD, [facility] ([phone]), at 06/03/2024 3:[address] Chest wo Contrast (Generic) (Exam End: 06/03/2024 4:33 PM) Result Value WORKSTATION ID [id number] Impression Cardiomegaly. Biventricular ICD leads in place. Thank you for letting us participate in the care of this patient. If you are a health care provider and have any questions regarding this report, please contact the number below. For patients who have questions please contact the health skin care therapist that requested your imaging first. Electronically signed by: Stuart Aponte MD, [facility] ([phone]), at 06/03/2024 4:47 PM TTE: Limited echo performed by fellow refrigeration mechanic helper to assess LV function. Left ventricle is [...] ischemic cardiomyopathy with HFrEF (~30% EF), prior ND with stents, DM type 2, HTN, HLD, [...] Dain Colón MD (PGY-1) Cardiology, M1-S2, Pager #[phone] 06/07/24 Associated attestation - Melida Valdes MD [...] a lytic and brought directly to the [employer]. Cardiac catheterization demonstrated multivessel disease with severe [...] for further guidance. Melida Valdes MD Staff Clinical Trial Leader * Dain Colón MD - 06/06/2024 7:17 AM EST Images from the original note were not included. . Cardiology Progress Note Patient info: Name: George Mehta : 1955 PCP: Mauro Berumen MD PCP phone number: [phone] Date of Admission: 06/02/2024 ( Hospital Day 4 days ) Attending:Melida Valdes MD ID: 69 y.o. male with a h/o DM type 2, HTN, HLD, current smoker (2-3 cigarettes/day), HFrEF with anICD for low EF (~30%), and CAD with prior ND x3 with JENNA placed in [place], Melanoma, PAD, presented to [facility] with 1 hour of retrosternal CP (05/13) while watching TV, found to have STEMI. Active Problems: Active Hospital Problems Diagnosis STEMI (ST elevation myocardial infarction) Acute on chronic heart failure with reduced ejection fraction (HFrEF, <= 40%) Coronary artery disease involving kake coronary artery of kake heart without angina pectoris Type 2 diabetes [...] in the last 68 hours. Invalid input(s): [id number] Recent Labs 06/06/24 0653 06/05/24 2231 06/05/24 1622 06/05/24 1134 06/05/24 0727 06/04/24 1943 06/04/24 1526 06/04/24 1109 06/04/24 0711 06/03/24 2005 06/03/24 1748 06/03/24 1114 POCGLU 187 238* 205* 211* 166 175 154 188 182 136 191 166 Heme No results for input(s): LDH, HAPTOGLOBIN, URICACID in the last 168 hours. ABG (Arterial Blood Gas) No results found for: PHART, PO2ART, NCB9QLS, XIO9PXR Microbiology: Microbiology Results (Last 30 days) No results found for the last 720 hours. Imaging: Results for orders placed or performed during the hospital encounter of 06/02/24 XR Chest One View (Exam End: 06/03/2024 2:41 AM) Result Value WORKSTATION ID [id number] Impression No radiographically evident acute cardiopulmonary process. Thank you for letting us participate in the care of this patient. If you are a health care provider and have any questions regarding this report, please contact the number below. For patients who have questions please contact the health skin care therapist that requested your imaging first. Electronically signed by: Corazon Mauro MD, [facility] ([phone]), at 06/03/2024 3:[address] Chest wo Contrast (Generic) (Exam End: 06/03/2024 4:33 PM) Result Value WORKSTATION ID [id number] Impression Cardiomegaly. Biventricular ICD leads in place. Thank you for letting us participate in the care of this patient. If you are a health care provider and have any questions regarding this report, please contact the number below. For patients who have questions please contact the health skin care therapist that requested your imaging first. Electronically signed by: Stuart Aponte MD, [facility] ([phone]), at 06/03/2024 4:47 PM TTE: Limited echo performed by fellow refrigeration mechanic helper to assess LV function. Left ventricle is [...] ischemic cardiomyopathy with HFrEF (~30% EF), prior ND with stents, DM type 2, HTN, HLD, [...] Dain Colón MD (PGY-1) Cardiology, M1-S2, Pager #[phone] 06/06/24 Associated attestation - Melida Valdes MD [...] a lytic and brought directly to the [employer]. Cardiac catheterization demonstrated multivessel disease with severe [...] management. Help appreciated Melida Valdes MD Staff Clinical Trial Leader * Frederick Dunn MD - 06/05/2024 8:13 AM EDT Images from the original note were not included. . Cardiology Progress Note Patient info: Name: George Mehta : 1955 PCP: Mauro Berumen MD PCP phone number: [phone] Date of Admission: 06/02/2024 ( Hospital Day 3 days ) Attending:Melida Valdes MD ID: 69 y.o. male with a h/o DM type 2, HTN, HLD, current smoker (2-3 cigarettes/day), HFrEF with anICD for low EF (~30%), and CAD with prior ND x3 with JENNA placed in [place], Melanoma, PAD, presented to [facility] with 1 hour of retrosternal CP (05/13) [...] in the last 7068 hours. Invalid input(s): [id number] Recent Labs 06/05/24 1134 06/05/24 0727 06/04/24 1943 06/04/24 1526 06/04/24 1109 06/04/24 0711 06/03/24 2005 06/03/24 1748 06/03/24 1114 06/03/24 0754 06/02/24 2331 POCGLU 211* 166 175 154 188 182 136 191 166 195 156 Heme No results for input(s): LDH, HAPTOGLOBIN, URICACID in the last 168 hours. ABG (Arterial Blood Gas) No results found for: PHART, PO2ART, DXZ9JFP, QCC2QVC Microbiology: Microbiology Results (Last 30 days) No results found for the last 720 hours. Imaging: Results for orders placed or performed during the hospital encounter of 06/02/24 XR Chest One View (Exam End: 06/03/2024 2:41 AM) Result Value WORKSTATION ID [id number] Impression No radiographically evident acute cardiopulmonary process. Thank you for letting us participate in the care of this patient. If you are a health care provider and have any questions regarding this report, please contact the number below. For patients who have questions please contact the health skin care therapist that requested your imaging first. Electronically signed by: Corazon Mauro MD, [facility] ([phone]), at 06/03/2024 3:[address] Chest wo Contrast (Generic) (Exam End: 06/03/2024 4:33 PM) Result Value WORKSTATION ID [id number] Impression Cardiomegaly. Biventricular ICD leads in place. Thank you for letting us participate in the care of this patient. If you are a health care provider and have any questions regarding this report, please contact the number below. For patients who have questions please contact the health skin care therapist that requested your imaging first. Electronically signed by: Stuart Aponte MD, [facility] ([phone]), at 06/03/2024 4:47 PM TTE: Limited echo performed by fellow refrigeration mechanic helper to assess LV function. Left ventricle is [...] ischemic cardiomyopathy with HFrEF (~30% EF), prior ND with stents, DM type 2, HTN, HLD, [...] all the information they need regarding the DIRECTOR OF ENTERTAINMENT-D.Plan for MRI tomorrow. Starting 40 mg IV [...] a lytic and brought directly to the [employer]. Cardiac catheterization demonstrated multivessel disease with severe [...] maintenance of 40. Melida Valdes MD Staff Clinical Trial Leader * Migel Javier RN - 06/05/2024 6:21 AM EDT Implanted device record scanned into: Chart Review-->Media-->External Cardiology-->03/25/2024. Medtronic A LITTLE WORLDia MRI Quad CRTD [id number] Serial #: [id number] DDD mode A + Bi/V Rates 50-130 Migel Javier RN * Dain Colón MD - 06/04/2024 11:16 AM EDT Implant Records Requested Type: DIRECTOR OF ENTERTAINMENT-D Director New Product: Medtronic Product: [id number] Amplia MRI MRI compatibility: Compatible for 1.5-3 T Model #: [id number] Placed at: [place], [place] Records requested for MRI: 1. Operative report 2. Implant log I requested that these records be sent to our MRI department, Dain Colón MD 06/04/24 11:58 AM * Dain Colón MD - 06/04/2024 6:57 AM EDT Images from the original note were not included. . Cardiology Progress Note Patient info: Name: George Mehta : 1955 PCP: Mauro Berumen MD PCP phone number: [phone] Date of Admission: 06/02/2024 ( Hospital Day 2 days ) Attending:Delroy Fofana MD ID: 69 y.o. male with a h/o DM type 2, HTN, HLD, current smoker (2-3 cigarettes/day), HFrEF with anICD for low EF (~30%), and CAD with prior ND x3 with JENNA placed in [place], Melanoma, PAD, presented to [facility] with 1 hour of retrosternal CP (05/13) [...] in the last 7068 hours. Invalid input(s): YBHJKAILPDQ4X Recent Labs 06/03/24200406/03/24 1748 06/03/24 1114 06/03/24 0754 06/02/24 2331 POCGLU 136 191 166 195 156 Heme No results for input(s): LDH, HAPTOGLOBIN, URICACID in the last 168 hours. ABG (Arterial Blood Gas) No results found for: PHART, PO2ART, DII5ZZQ, XAR4COL Microbiology: Microbiology Results (Last 30 days) No results found for the last 720 hours. Imaging: Results for orders placed or performed during the hospital encounter of 06/02/24 XR Chest One View (Exam End: 06/03/2024 2:41 AM) Result Value WORKSTATION ID [id number] Impression No radiographically evident acute cardiopulmonary process. Thank you for letting us participate in the care of this patient. If you are a health care provider and have any questions regarding this report, please contact the number below. For patients who have questions please contact the health skin care therapist that requested your imaging first. Electronically signed by: Corazon Mauro MD, [facility] ([phone]), at 06/03/2024 3:[address] Chest wo Contrast (Generic) (Exam End: 06/03/2024 4:33 PM) Result Value WORKSTATION ID [id number] Impression Cardiomegaly. Biventricular ICD leads in place. Thank you for letting us participate in the care of this patient. If you are a health care provider and have any questions regarding this report, please contact the number below. For patients who have questions please contact the health skin care therapist that requested your imaging first. Electronically signed by: Stuart Aponte MD, [facility] ([phone]), at 06/03/2024 4:47 PM TTE: Limited echo performed by fellow refrigeration mechanic helper to assess LV function. Left ventricle is [...] ischemic cardiomyopathy with HFrEF (~30% EF), prior ND with stents, DM type 2, HTN, HLD, [...] -Lasix 40 mg IV given in the manager cardiac cath; assess diuretic response, consider re-dosing -Continue carvedilol; [...] a lytic and brought directly to the [employer]. Cardiac catheterization demonstrated multivessel disease with severe [...] Friday -Diuresis with Jovanni Valdes MD Staff Clinical Trial Leader * Fatmata Mcallister PT - 06/03/2024 3:29 [...] vs PCI) Fatmata Mcallister PT, MSPT Pager [phone] Inpatient Physical Therapy * Marlin Gómez MD [...] Marlin Gómez MD Cardiology S2, Pager # [phone] 06/03/2024 * Delroy Fofana MD - 06/03/2024 7:16 AM EDT Images from the original note were not included. . Cardiology Progress Note Patient info: Name: George Mehta : 1955 PCP: Mauro Berumen MD PCP phone number: [phone] Date of Admission: 06/02/2024 ( Hospital Day 1 day ) Attending:Nuha Rojo MD ID: 69 y.o. male with a h/o DM type 2, HTN, HLD, current smoker (2-3 cigarettes/day), HFrEF with anICD for low EF (~30%), and CAD with prior ND x3 with JENNA placed in [place], Melanoma, PAD, presented to [facility] with 1 hour of retrosternal CP (05/13) [...] in the last 7068 hours. Invalid input(s): YAEACIXFPPZ0K Recent Labs 06/02/24 2331 POCGLU 156 Heme No results for input(s): LDH, HAPTOGLOBIN, URICACID in the last 168 hours. ABG (Arterial Blood Gas) No results found for: PHART, PO2ART, AHJ0VNE, HFG6MWQ Microbiology: Microbiology Results (Last 30 days) No results found for the last 720 hours. Imaging: Results for orders placed or performed during the hospital encounter of 06/02/24 XR Chest One View (Exam End: 06/03/2024 2:41 AM) Result Value WORKSTATION ID [id number] Impression No radiographically evident acute cardiopulmonary process. Thank you for letting us participate in the care of this patient. If you are a health care provider and have any questions regarding this report, please contact the number below. For patients who have questions please contact the health skin care therapist that requested your imaging first. Electronically signed by: Corazon Mauro MD, [facility] ([phone]), at 06/03/2024 3:06 AM TTE: Limited echo performed by fellow refrigeration mechanic helper to assess LV function. Left ventricle is [...] ischemic cardiomyopathy with HFrEF (~30% EF), prior ND with stents, DM type 2, HTN, HLD, [...] -Lasix 40 mg IV given in the manager cardiac cath; assess diuretic response, consider re-dosing -Continue carvedilol; [...] of care per Dain Colón MD (medical records clerk). Please refer to his note above for details. Very pleasant 69 year old male but he is obese, diabetic, and he is a SMOKER with known prior CAD and moderately reduced LVEF (30%). He has a pacer. History of surgical resection of melanoma on his head. The patient was transferred overnight to [facility] as a STEMI. He was treated initially with a lytic (TNK) and brought directly to the manager cardiac cath. The cath demonstrated 3VD with diffuse disease [...] - 06/13/2024 10:58 AM EST ICU Blue (#[id number]) H&P Patient info: Name: George Mehta : 1955 PCP: Mauro Berumen MD PCP phone number: [phone] Date of Admission: 06/02/2024 ( Hospital Day 11 days ) Attending:Haja Byrnes MD ID: George Mehta is a 69 y.o. male with a h/o DM type 2, HTN, HLD, current smoker (2-3 cigarettes/day), HFrEF with an ICD for low EF (~30%), and CAD with prior ND x3 with JENNA placed in [place], Melanoma, PAD, presented to [facility] with 1 hour of retrosternal CP (05/13) while watching TV, foundto have STEMI. HPI: Shahnaz Scanlon H&P 06/02 69 y.o. male with a h/o DM type 2, HTN, HLD, current smoker (2-3 cigarettes/day), HFrEF with an ICD for low EF (~30%), and CAD with prior ND x3 with JENNA placed in [place], Melanoma, PAD, presented to [facility] with 1 hour of retrosternal CP (05/13) while watching TV. CP was non-radiating, not asso ciated with diaphoresis, nausea, or SOB. Denies orthopnea, MARTÍNEZ, palpitations, or LE edema. ECG showed findings consistent with anterior STEMI. He received TNK and was transferred for PCI. Coronary angiography showed a small, non-dominant RCA with wfkh-ma-dniuvljn disease and a dominant,heavily calcified left system with prior stents in the LAD and OM. The LM bifurcates into the LAD and LCX, both heavily calcified. The proximal LCX has a 75% calcified, aneurysmal lesion, and an 80% calcified lesion distally before a large OM2. OM1 is a CERTIFIED ADAPTED PHYSICAL EDUCATOR with in-stent restenosis, filling retrograde via collaterals. [...] 40 mg Lasix was administered in the manager cardiac cath. Cardiac surgery was consulted and plan for [...] Blood Gas) No results for input(s): PHART, VZC4AER, PO2ART, KLC0NDJ, LACTATEVEN, ZGL5WUT, PFRATIOART2 in the last 168 hours. VBG (Venous Blood Gas) Recent Labs 06/10/24 1742 PHVEN 7.34 PO2VEN 24 HGP8FQV 27.4 Mixed Venous Sat No results for input(s): F6LSIJ9 in the last 168 hours. Intake/Output Summary [...] in the last 7068 hours. Invalid input(s): EJSMRXGTWBU4H Recent Labs 06/13/24 0741 06/13/24 0325 06/12/24 2353 06/12/24 1932 06/12/24 1541 06/12/24 1121 06/12/24 0800 06/12/24 0425 06/11/24 2356 06/11/24 2025 06/11/24 1624 06/11/24 1108 POCGLU 126 99 141 158 113 207* 169 132 135 210* 81 233* Heme No results for input(s): LDH, HAPTOGLOBIN, URICACID in the last 168 hours. ABG (Arterial Blood Gas) No results for input(s): PHART, YKZ8EOQ, PO2ART, XTG2DNG, LACTATEVEN, DKU6KGR, PFRATIOART2 in the last 168 hours. VBG (Venous Blood Gas) Recent Labs 06/10/24 1742 PHVEN 7.34 PO2VEN 24 RCT8CDQ 27.4 Mixed Venous Sat No results for input(s): P7BKRL9 in the last 168 hours. Microbiology: Microbiology Results (Last 30 days) No results found for the last 720 hours. Assessment & Plan: George Mehta is a 69 y.o. male with CAD, ischemic cardiomyopathy with HFrEF (~30% EF), prior ND with stents, DM type 2, HTN, HLD, [...] Plan for CABG 06/14. Patient NPO at [place]. #ASCVD / STEMI: -Holding Plavix; continue ASA [...] (Give Meds) Daily Healthy Menu Choices/Cardiac diet ([facility]-Diet) DVT Prophylaxis: SCD GI Prophylaxis: None Dispo: [...] TUD (abstinent since admission), ASCVD with multipleprior ND and PCIs, ICM/HFrEF LVEF 30% (all territories [...] is in the chart Rebeca Prado MD Senior Computer Specialist PGY6 [phone] * Shahnaz Scanlon MD - [...] low EF (~30%), and CAD with prior ND x3 with JENNA placed in [facility], presented to [facility] with 1 hour of retrosternal CP (05/13) while watching TV. CP was non-radiating, not assoc iated with diaphoresis, nausea, or SOB. Denies orthopnea, MARTÍNEZ, palpitations, or LE edema. ECG showed findings consistent with anterior STEMI. He received TNK and was transferred for PCI. Coronary angiography showed a small, non-dominant RCA with befo-cc-pkvetcwe disease and a dominant,heavily calcified left system with prior stents in the LAD and OM. The LM bifurcates into the LAD and LCX, both heavily calcified. The proximal LCX has a 75% calcified, aneurysmal lesion, and an 80% calcified lesion distally before a large OM2. OM1 is a CERTIFIED ADAPTED PHYSICAL EDUCATOR with in-stent restenosis, filling retrograde via collaterals. [...] 40 mg Lasix was administered in the manager cardiac cath. Past Medical History: As per HPI Significant [...] Affect: Mood normal. Behavior: Behavior normal. Diagnostics: [facility] 06/02/2024 Coronary angiography revealed small non [...] ischemic cardiomyopathy with HFrEF (~30% EF), prior ND with stents, DM type 2, HTN, HLD, [...] -Lasix 40 mg IV given in the manager cardiac cath; assess diuretic response. -Continue carvedilol; hold Entresto [...] & Follow-up Care: Contact information for follow-up [facility] [address] [facility] [address] Cardiac Rehab, [address] [address] JAMIE GRAMAJO confirmed with [facility] that they [...] shift summary OUTCOME EVALUATION NOTE: OUTCOME SUMMARY: Georeg Mehta is a 69 y.o. male admitted [...] Roberts RN - 06/18/2024 10:50 AM EST [facility] George Mehta was seen today regarding participation in the outpatient Phase 2 Cardiac Rehabilitation at [facility]. The patient agrees to a referral to [...] Agency/Support Group Needs: Homecare agency Agency Choices: [facility] Home Health Services: Medication checks, Registered Nurse, Physical Therapy Agency Referrals: pending clinical course and PT/OT recs [facility] [address] [facility] [address] PHONE: [phone] FAX: [phone] Transportation: family or friend will provide Barriers [...] MEDICARE Payor: [employer] MANAGED MEDICARE / Plan: [facility] MANAGED MEDICARE COMPLETE / Product Type: *No Product type* / Secondary Insurance: N/A Plan for discharge is: Home w/ Services Outpatient Agency/Support Group Needs: Homecare agency Agency Choices: [place] [facility]: Medication checks, Registered Nurse, Physical Therapy Agency Referrals: pending clinical course and PT/OT recs [facility] [address] [place] [address] PHONE: [phone] FAX: [phone] Transportation: family or friend will provide Barriers [...] Loja MD - 06/14/2024 8:48 AM EST [facility] Operative Note Patient Name: George Mehta : [id number] MR#: [id number] Case Date: 06/14/2024 Surgeon: Surgeons and Role: * Bobby Loja MD - Primary * Rashi Bass PA - Physician Appliance Worker Preoperative diagnosis: CAD, MARIALUISA flickering mass on [...] procedures today and tomorrow. Report called to [facility] - all belongings with patient. PLAN MOVING FORWARD: laboratory monitor and transfer to [facility]. INDIVIDUALIZED FALL PREVENTION [...] No Patient is insured through: Primary Insurance: [facility] MANAGED MEDICARE Payor: [facility] MANAGED MEDICARE / Plan: [facility] MANAGED MEDICARE COMPLETE / Product Type: *No Product type* / Secondary Insurance: N/A Plan for discharge is: Home w/ Services Outpatient Agency/Support Group Needs: Homecare agency, Agency Choices: [facility] Home Health Services: Medication checks, Registered Nurse, Physical Therapy Agency Referrals: [facility] [address] [place] [address] RN / PT Routed 06/10 Transportation: family [...] with home health services when medically ready. fiber optics supervisor/Senior Project Manager Engineering will continue to follow patient???s progress and remain available if situation changes for coordination of care, psychosocial support and/or discharge planning. Anticipated Date of Discharge: 06/18/2024 Mariia Montero RN Extension [phone] * Plan of Care - Migel Javier [...] as Appropriate) * Plan of Care - Dinehs Patel RN - 06/08/2024 7:29 PM EST [...] No Patient is insured through: Primary Insurance: [employer] MEDICARE Payor: [employer] MANAGED MEDICARE / Plan: [facility] MANAGED MEDICARE COMPLETE / Product Type: *No [...] consult for high risk PCI vs CABG fiber optics supervisor/Senior Project Manager Engineering will continue to follow patient???s progress and remain available if situation changes for coordination of care, psychosocial support and/or discharge planning. Anticipated Date of Discharge: 06/11/2024 Mariia Montero RN Extension [phone] * Plan of Care - Becca Hope [...] Goal: Patient-Specific Goal (Individualized) 06/07/2024656 by Becca Hpoe RN Outcome: Ongoing (Interventions Implemented as Appropriate) [...] ischemic cardiomyopathy with HFrEF (~30% EF), prior ND with stents, DM type 2, HTN, HLD, [...] CABG and to provide a review of [facility] diabetes care. Diabetes History: George Mehta has [...] ischemic cardiomyopathy with HFrEF (~30% EF), prior ND with stents, DM type 2, HTN, HLD, [...] Baumann APRN Endocrinology Diabetes Management Service Pager: [phone] Weekends please page [phone] 80 minute visit was spent in counseling [...] y.o. male with a PMHx of previous ND s/p PCI x3, ICM/HFrEF (LVEF 30%) s/p ICD, DMII, HTN, HLD, remote melanoma, and smoker who presented to [facility] last night via EMS after developing acute, severe chest pain while watching TV. Patient was ruled in for STEMI, given TNK, ASA, plavix, heparin gtt, and sent to [facility] for coronary angiography. [facility] demonstrated severely calcified left coronary system with notable LCx 75/80% lesions and CERTIFIED ADAPTED PHYSICAL EDUCATOR OM1 with ISR with collateral retrograde filling, [...] elevation myocardial infarction) Past Medical History: previous ND s/p PCI x3 ICM/HFrEF (LVEF 30%) s/p [...] is large. OM1 appears to be a CERTIFIED ADAPTED PHYSICAL EDUCATOR, with in stentrestenosis and fills retrograde via [...] y.o. male admitted with STEMI s/p TNK, [facility] showing multivessel CAD including ISR, no [...] to our service. Signed: Paula Treviño PA-C [facility] Section of Cardiac Surgery Date: 06/03/2024 * Initial Assessments - Catina Estrada MSW - 06/03/2024 10:32 AM EDT Office of Care Management Initial Assessment CHINA Humphrey reviewed record and discussed patient with Care Team. Source of Information: Team, bedside nurse, medical record, and Patient FRONT LINE SUPERVISOR Introduced self/reviewed role; services accepted. Admitted From: Transfer from another hospital Location: [facility] Reason for Hospitalization: Chest Pain while watching TV, doctors said I had a heart attack Past medical History: No past medical history on file. Hospitalizations Within the Past 30 Days: no previous admission in last 30 days Current Decision-Making Capacity: Self If AD's have not been completed the following surrogate would be surrogate decision maker per [place] surrogate decision making law. (Only good for 180 days) Any patient receiving care in [place] must abide by [place] law. The hierarchy for surrogate decision making [...] (i) The agent with financial power of claims attorney or a conservator appointed in accordance [...] has the electric, gas, oil, or water [email or web address] threatened to shut off services in your [...] the bathroom) Home Address confirmed as: [address] [place] [address] [address] [facility] [address] Social & Family Supports: All names listed [...] Pertinent/Service Specific Information: Health/Prescription Coverage: Primary Insurance: [facility] MEDICARE Payor: [facility] MEDICARE / Plan: [employer] RPPO MANAGED MEDICARE COMPLETE / Product Type: *No Product type* / Secondary Insurance: N/A ; Prescription Coverage: Yes Preferred Pharmacy: [id number] - [facility], [place] - [address] [facility] [address] [place] [address] Status: Patient is a : No Primary Care Provider confirmed: Mauro Berumen MD [phone] Patient/Caregiver Goals of Treatment: Potential Needs for [...] care as indicated. [facility], ext. [phone] * Brief Op Note - Angeles Gaxiola PA - 06/03/2024 12:23 AM EDT Preliminary Cardiac Catheterization Procedure Note: Patient Name: George Mehta : [id number] MR#: [id number] Case Date: 06/02/2024 - 06/03/2024 Forensic Pathologist: Surgeons and Role: * Nuha Shen MD - Primary * Angeles Gaxiola PA - Physician Appliance Worker Preoperative diagnosis: STEMI Postoperative diagnosis: * STEMI * Procedure(s) performed: RRA access [facility] Coronary angiogram IVUS LM/LAD/LCX Access: 6 Fr RRA A time-out was conducted prior to the start of the procedure to verify the correct patient and procedure, procedure location, and all relevant critical information. Preliminary findings: 69 year old current smoker (1-2 cigarette's per day), DM type 2, hypertension, dyslipidemia, ICD for HFrEF/low EF (~30%), CAD with prior ND and 3 stents historically (in [place]) who presented to [facility] with 1 hour of rest chest pain [...] is large. 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) 06/14/2024 7:34 AM EST CAD Endoscopy W/Video-Asst Vein [place], Cabg ([id number]) 06/14/2024 7:34 AM EST CAD [place], Artery-Vein, Two ([id number]) 06/14/2024 7:34 AM EST CAD [place], Arterial, Single ([id number]) 06/14/2024 7:34 AM EST CAD TRANSESOPHAGEAL ECHOCARDIOGRAM IN THE OR Routine 06/14/2024 7:20 AM EST Coronary artery disease involving kake coronary artery of kake heart without angina pectoris POC, GLUCOSE Routine [...] * POC, GLUCOSE (06/21/2024 3:51 AM EST) [facility] Glucometer, POC 142 65 - 199 mg/dL 06/21/2024 3:51 AM EST [facility] Comment:Supplemental ranges: <140 mg/dL before meals <180 mg/dL all other times of the day. Blood CAPILLARY BLOOD / Unknown 06/21/2024 3:51 AM EST 06/21/2024 3:51 AM EST Bobby Loja MD POINT OF CARE TEST O RDERABLES [facility] [place] [address] * (ABNORMAL) Basic Metabolic Panel (06/21/2024 2:09 AM EST) Glucose 169 65 - 199 mg/dL 06/21/2024 3:10 AM EST [facility] Comment:Glucose Concentratio n >=200 mg/dL plus symptoms is consistent with Diabetes Mellitus. Blood Urea Nitrogen 27(H) 10 - 20 mg/dL 06/21/2024 3:10 AM EST [facility] Creatinine 1.24 0.80 - 1.50 mg/dL 06/21/2024 3:10 AM [facility] Sodium 138 135 - 145 mMol/L 06/21/2024 3:10 AM [facility] Potassium 4.2 3.5 - 5.0 mMol/L 06/21/2024 3:10 AM [facility] Chloride 100 98 - 107 mMol/L 06/21/2024 3:10 AM [facility] Carbon Dioxide 27 22 - 31 mMol/L 06/21/2024 3:10 AM [facility] Anion Gap 11 5 - 15 mMol/L 06/21/2024 3:10 AM [facility] Calcium 8.7 8.5 - 10.5 mg/dL 06/21/2024 3:10 AM [facility] Est Glomerular Filtration Rate - Male 64 mL/min/1. 73 m?? 06/21/2024 3:10 AM [facility] Comment: This [...] APRN CHEMISTRY ORDERABL ES Performing Organization Address City/[facility]/ZIP Co de Phone Number [facility] [place] [address] * POC, GLUCOSE (06/21/2024 12:04 AM EST) Glucometer, POC 157 65 - 199 mg/dL 06/21/2024 12:04 AM EST [facility] Comment:Supplemental ranges: <140 mg/dL before meals <180 mg/dL all other times of the day. Blood CAPILLARY BLOOD / Unknown 06/21/2024 12:04 AM EST 06/21/2024 12:04 AM EST Bobby Loja MD POINT OF CARE TEST O NIKA Performing Organization Address [facility] Co de Phone Number [facility] [place] [address] * POC, GLUCOSE (06/20/2024 11:14 PM EST) Glucometer, POC 67 65 - 199 mg/dL 06/20/2024 11:14 PM EST [facility] Comment:Supplemental ranges: <140 mg/dL before meals <180 mg/dL all other times of the day. Blood CAPILLARY BLOOD / Unknown 06/20/2024 11:14 PM EST 06/20/2024 11:14 PM EST Bobby Loja MD POINT OF CARE TEST O RDERAPIETER Performing Organization Address City/[facility]/ZIP Co de Phone Number [facility] [place] [address] * POC, GLUCOSE (06/20/2024 7:16 PM EST) Glucometer, POC 132 65 - 199 mg/dL 06/20/2024 7:16 PM EST [facility] Comment:Supplemental ranges: <140 mg/dL before meals <180 mg/dL all other times of the day. Blood CAPILLARY BLOOD / Unknown 06/20/2024 7:16 PM EST 06/20/2024 7:16 PM EST Bobby Loja MD POINT OF CARE TEST O NIKA Performing Organization Address City/[facility]/ZIP Co de Phone Number [facility] [place] [address] * POC, GLUCOSE (06/20/2024 3:39 PM EST) Glucometer, POC 124 65 - 199 mg/dL 06/20/2024 3:40 PM EST [facility] Comment:Supplemental ranges: <140 mg/dL before meals <180 mg/dL all other times of the day. Blood CAPILLARY BLOOD / Unknown 06/20/2024 3:39 PM EST 06/20/2024 3:40 PM EST Bobby Loja MD POINT OF CARE TEST O NIKA Performing Organization Address [facility] Co de Phone Number [facility] [place] [address] * POC, GLUCOSE (06/20/2024 12:02 PM EST) Glucometer, POC 173 65 - 199 mg/dL 06/20/2024 12:03 PM EST [facility] Comment:Supplemental ranges: <140 mg/dL before meals <180 mg/dL all other times of the day. Blood CAPILLARY BLOOD / Unknown 06/20/2024 12:02 PM EST 06/20/2024 12:03 PM EST Bobby Loja MD POINT OF CARE TEST O NIKA Performing Organization Address City/[facility]/ZIP Co de Phone Number [facility] [place] [address] * POC, GLUCOSE (06/20/2024 7:10 AM EST) Glucometer, POC 130 65 - 199 mg/dL 06/20/2024 7:11 AM EST [facility] Comment:Supplemental ranges: <140 mg/dL before meals <180 mg/dL all other times of the day. Blood CAPILLARY BLOOD / Unknown 06/20/2024 7:10 AM EST 06/20/2024 7:11 AM EST Bobby Loja MD POINT OF CARE TEST O RDERABLES [facility] [place] [address] * (ABNORMAL) Basic Metabolic Panel (06/20/2024 2:28 AM EST) Glucose 79 65 - 199 mg/dL 06/20/2024 3:06 AM [facility] Comment:Glucose Concentratio n >=200 mg/dL plus symptoms is consistent with Diabetes Mellitus. Blood Urea Nitrogen 38(H) 10 - 20 mg/dL 06/20/2024 3:06 AM [facility] Creatinine 1.39 0.80 - 1.50 mg/dL 06/20/2024 3:06 AM [facility] Sodium 137 135 - 145 mMol/L 06/20/2024 3:06 AM [facility] Potassium 3.6 3.5 - 5.0 mMol/L 06/20/2024 3:06 AM [facility] Chloride 100 98 - 107 mMol/L 06/20/2024 3:06 AM [facility] Carbon Dioxide 29 22 - 31 mMol/L 06/20/2024 3:06 AM [facility] Anion Gap 8 5 - 15 mMol/L 06/20/2024 3:06 AM [facility] Calcium 8.4(L) 8.5 - 10.5 mg/dL 06/20/2024 3:06 AM [facility] Est Glomerular Filtration Rate - Male 56 mL/min/1. 73 m?? 06/20/2024 3:06 AM EST [facility] [...] APRN CHEMISTRY ORDERABL ES Performing Organization Address City/[facility]/ZIP Co de Phone Number [facility] [place] [address] * POC, GLUCOSE (06/20/2024 12:32 AM EST) Glucometer, POC 86 65 - 199 mg/dL 06/20/2024 12:32 AM EST [facility] Comment:Supplemental ranges: <140 mg/dL before meals <180 mg/dL all other times of the day. Blood CAPILLARY BLOOD / Unknown 06/20/2024 12:32 AM EST 06/20/2024 12:32 AM EST Bobby Loja MD POINT OF CARE TEST O RDERABLES [facility] [place] [address] * (ABNORMAL) POC, GLUCOSE (06/20/2024 12:02 AM EST) Glucometer, POC 59(L) 65 - 199 mg/dL 06/20/2024 12:02 AM EST [facility] Comment:Supplemental ranges: <140 mg/dL before meals <180 mg/dL all other times of the day. Blood CAPILLARY BLOOD / Unknown 06/20/2024 12:02 AM EST 06/20/2024 12:03 AM EST Narrative Authorizing Provider Result Saranya Loja MD POINT OF CARE TEST O NIKA Performing Organization Address City/[facility] Co de Phone Number [facility] [place] [address] * POC, GLUCOSE (06/19/2024 8:15 PM EST) Glucometer, POC 131 65 - 199 mg/dL 06/19/2024 8:15 PM EST [facility] Comment:Supplemental ranges: <140 mg/dL before meals <180 mg/dL all other times of the day. Blood CAPILLARY BLOOD / Unknown 06/19/2024 8:15 PM EST 06/19/2024 8:15 PM EST Bobby Loja MD POINT OF CARE TEST O NIKA Performing Organization Address [facility] Co de Phone Number [facility] [place] [address] * POC, GLUCOSE (06/19/2024 6:01 PM EST) Glucometer, POC 129 65 - 199 mg/dL 06/19/2024 6:01 PM EST [facility] Comment:Supplemental ranges: <140 mg/dL before meals <180 mg/dL all other times of the day. Blood CAPILLARY BLOOD / Unknown 06/19/2024 6:01 PM EST 06/19/2024 6:02 PM EST Narrative Authorizing Provider Result Saranya Loja MD POINT OF CARE TEST O NIKA Performing Organization Address City/[facility] Co de Phone Number [facility] [place] [address] * POC, GLUCOSE (06/19/2024 4:51 PM EST) Glucometer, POC 155 65 - 199 mg/dL 06/19/2024 4:51 PM EST [facility] Comment:Supplemental ranges: <140 mg/dL before meals <180 mg/dL all other times of the day. Blood CAPILLARY BLOOD / Unknown 06/19/2024 4:51 PM EST 06/19/2024 4:51 PM EST Bobby Loja MD POINT OF CARE TEST O NIKA Performing Organization Address City/[facility]/ZIP Co de Phone Number [facility] [place] [address] * POC, GLUCOSE (06/19/2024 12:37 PM EST) Glucometer, POC 136 65 - 199 mg/dL 06/19/2024 12:37 PM EST [facility] Comment:Supplemental ranges: <140 mg/dL before meals <180 mg/dL all other times of the day. Blood CAPILLARY BLOOD / Unknown 06/19/2024 12:37 PM EST 06/19/2024 12:37 PM EST Bobby Loja MD POINT OF CARE TEST O NIKA Performing Organization Address [facility] Co de Phone Number [facility] [place] [address] * POC, GLUCOSE (06/19/2024 11:20 AM EST) Glucometer, POC 185 65 - 199 mg/dL 06/19/2024 11:21 AM EST [facility] Comment:Supplemental ranges: <140 mg/dL before meals <180 mg/dL all other times of the day. Blood CAPILLARY BLOOD / Unknown 06/19/2024 11:20 AM EST 06/19/2024 11:21 AM EST Bobby Loja MD POINT OF CARE TEST O RALPHERAPIETER Performing Organization Address City/[facility]/ZIP Co de Phone Number [facility] [place] [address] * POC, GLUCOSE (06/19/2024 7:21 AM EST) Glucometer, POC 125 65 - 199 mg/dL 06/19/2024 7:21 AM EST [facility] Comment:Supplemental ranges: <140 mg/dL before meals <180 mg/dL all other times of the day. Blood CAPILLARY BLOOD / Unknown 06/19/2024 7:21 AM EST 06/19/2024 7:22 AM EST Bobby Loja MD POINT OF CARE TEST O NIKA Performing Organization Address City/[facility]/ZIP Co de Phone Number [facility] [place] [address] * POC, GLUCOSE (06/19/2024 4:52 AM EST) Glucometer, POC 125 65 - 199 mg/dL 06/19/2024 4:52 AM EST [facility] Comment:Supplemental ranges: <140 mg/dL before meals <180 mg/dL all other times of the day. Blood CAPILLARY BLOOD / Unknown 06/19/2024 4:52 AM EST 06/19/2024 4:52 AM EST Bobby Loja MD POINT OF CARE TEST O NIKA Performing Organization Address City/[facility]/ZIP Co de Phone Number [facility] [place] [address] * POC, GLUCOSE (06/19/2024 4:13 AM EST) Glucometer, POC 67 65 - 199 mg/dL 06/19/2024 4:13 AM EST [facility] Comment:Supplemental ranges: <140 mg/dL before meals <180 mg/dL all other times of the day. Blood CAPILLARY BLOOD / Unknown 06/19/2024 4:13 AM EST 06/19/2024 4:13 AM EST Bobby Loja MD POINT OF CARE TEST O NIKA [facility] [place] [address] * (ABNORMAL) POC, GLUCOSE (06/19/2024 3:48 AM EST) Glucometer, POC 51(LLL) 65 - 199 mg/dL 06/19/2024 3:48 AM EST [facility] Comment:Supplemental ranges: <140 mg/dL before meals <180 mg/dL all other times of the day. Blood CAPILLARY BLOOD / Unknown 06/19/2024 3:48 AM EST 06/19/2024 3:48 AM EST Bobby Loja MD POINT OF CARE TEST O RDERAPIETER [facility] [place] [address] * (ABNORMAL) Basic Metabolic Panel (06/19/2024 3:44 AM EST) Glucose 53(LLL) 65 - 199 mg/dL 06/19/2024 4:48 AM EST [facility] Comment:Glucose Concentratio n >=200 mg/dL plus symptoms is consistent with Diabetes Mellitus. Blood Urea Nitrogen 42(H) 10 - 20 mg/dL 06/19/2024 4:48 AM [facility] Creatinine 1.29 0.80 - 1.50 mg/dL 06/19/2024 4:48 AM [facility] Sodium 138 135 - 145 mMol/L 06/19/2024 4:48 AM [facility] Potassium 3.6 3.5 - 5.0 mMol/L 06/19/2024 4:48 AM [facility] Chloride 100 98 - 107 mMol/L 06/19/2024 4:48 AM [facility] Carbon Dioxide 29 22 - 31 mMol/L 06/19/2024 4:48 AM [facility] Anion Gap 9 5 - 15 mMol/L 06/19/2024 4:48 AM [facility] Calcium 8.8 8.5 - 10.5 mg/dL 06/19/2024 4:48 AM EST [facility] Est Glomerular Filtration Rate - Male 61 mL/min/1. 73 m?? 06/19/2024 4:48 AM EST [facility] [...] APRN CHEMISTRY ORDERABL ES Performing Organization Address City/[facility]/ZIP Co de Phone Number [facility] [place] [address] * POC, GLUCOSE (06/19/2024 12:23 AM EST) Glucometer, POC 82 65 - 199 mg/dL 06/19/2024 12:23 AM EST [facility] Comment:Supplemental ranges: <140 mg/dL before meals <180 mg/dL all other times of the day. Blood CAPILLARY BLOOD / Unknown 06/19/2024 12:23 AM EST 06/19/2024 12:23 AM EST Bobby Loja MD POINT OF CARE TEST O RDERABLES [facility] [place] [address] * POC, GLUCOSE (06/18/2024 11:08 PM EST) Glucometer, POC 73 65 - 199 mg/dL 06/18/2024 11:08 PM EST [facility] Comment:Supplemental ranges: <140 mg/dL before meals <180 mg/dL all other times of the day. Blood CAPILLARY BLOOD / Unknown 06/18/2024 11:08 PM EST 06/18/2024 11:08 PM EST Bobby Loja MD POINT OF CARE TEST O NIKA Performing Organization Address City/[facility]/ZIP Co de Phone Number [facility] [place] [address] * POC, GLUCOSE (06/18/2024 7:32 PM EST) Glucometer, POC 167 65 - 199 mg/dL 06/18/2024 7:32 PM EST [facility] Comment:Supplemental ranges: <140 mg/dL before meals <180 mg/dL all other times of the day. Blood CAPILLARY BLOOD / Unknown 06/18/2024 7:32 PM EST 06/18/2024 7:32 PM EST Bobby Loja MD POINT OF CARE TEST O NIKA Performing Organization Address [facility] Co de Phone Number [facility] [place] [address] * POC, GLUCOSE (06/18/2024 6:08 PM EST) Glucometer, POC 140 65 - 199 mg/dL 06/18/2024 6:09 PM EST [facility] Comment:Supplemental ranges: <140 mg/dL before meals <180 mg/dL all other times of the day. Blood CAPILLARY BLOOD / Unknown 06/18/2024 6:08 PM EST 06/18/2024 6:09 PM EST Bobby Loja MD POINT OF CARE TEST O NIKA Performing Organization Address City/[facility]/ZIP Co de Phone Number [facility] [place] [address] * POC, GLUCOSE (06/18/2024 4:17 PM EST) Glucometer, POC 144 65 - 199 mg/dL 06/18/2024 4:17 PM EST [facility] Comment:Supplemental ranges: <140 mg/dL before meals <180 mg/dL all other times of the day. Blood CAPILLARY BLOOD / Unknown 06/18/2024 4:17 PM EST 06/18/2024 4:17 PM EST Bobby Loja MD POINT OF CARE TEST O NIKA Performing Organization Address [facility]/ZIP Co de Phone Number [facility] [place] [address] * POC, GLUCOSE (06/18/2024 12:09 PM EST) Glucometer, POC 180 65 - 199 mg/dL 06/18/2024 12:09 PM EST [facility] Comment:Supplemental ranges: <140 mg/dL before meals <180 mg/dL all other times of the day. Blood CAPILLARY BLOOD / Unknown 06/18/2024 12:09 PM EST 06/18/2024 12:09 PM EST Bobby Loja MD POINT OF CARE TEST O NIKA Performing Organization Address [facility]/ZIP Co de Phone Number [facility] [place] [address] * POC, GLUCOSE (06/18/2024 7:49 AM EST) Glucometer, POC 125 65 - 199 mg/dL 06/18/2024 7:50 AM EST [facility] Comment:Supplemental ranges: <140 mg/dL before meals <180 mg/dL all other times of the day. Blood CAPILLARY BLOOD / Unknown 06/18/2024 7:49 AM EST 06/18/2024 7:50 AM EST Bobby Loja MD POINT OF CARE TEST O NIKA [facility] [place] [address] * (ABNORMAL) Basic Metabolic Panel (06/18/2024 4:19 AM EST) Glucose 103 65 - 199 mg/dL 06/18/2024 5:03 AM [facility] Comment:Glucose Concentratio n >=200 mg/dL plus symptoms is consistent with Diabetes Mellitus. Blood Urea Nitrogen 43(H) 10 - 20 mg/dL 06/18/2024 5:03 AM [facility] Creatinine 1.45 0.80 - 1.50 mg/dL 06/18/2024 5:03 AM [facility] Sodium 131(L) 135 - 145 mMol/L 06/18/2024 5:03 AM [facility] Potassium 4.2 3.5 - 5.0 mMol/L 06/18/2024 5:03 AM [facility] Chloride 97(L) 98 - 107 mMol/L 06/18/2024 5:03 AM [facility] Carbon Dioxide 25 22 - 31 mMol/L 06/18/2024 5:03 AM [facility] Anion Gap 9 5 - 15 mMol/L 06/18/2024 5:03 AM [facility] Calcium 8.5 8.5 - 10.5 mg/dL 06/18/2024 5:03 AM [facility] Est Glomerular Filtration Rate - Male 53 mL/min/1. 73 m?? 06/18/2024 5:03 AM [facility] Comment: This [...] APRN CHEMISTRY ORDERABL ES Performing Organization Address City/[facility]/ZIP Co de Phone Number [facility] [place] [address] * POC, GLUCOSE (06/18/2024 3:50 AM EST) Glucometer, POC 99 65 - 199 mg/dL 06/18/2024 3:51 AM EST [facility] Comment:Supplemental ranges: <140 mg/dL before meals <180 mg/dL all other times of the day. Blood CAPILLARY BLOOD / Unknown 06/18/2024 3:50 AM EST 06/18/2024 3:51 AM EST Bobby Loja MD POINT OF CARE TEST O NIKA Performing Organization Address [facility] Co de Phone Number [facility] [place] [address] * POC, GLUCOSE (06/17/2024 11:10 PM EST) Glucometer, POC 92 65 - 199 mg/dL 06/17/2024 11:10 PM EST [facility] Comment:Supplemental ranges: <140 mg/dL before meals <180 mg/dL all other times of the day. Blood CAPILLARY BLOOD / Unknown 06/17/2024 11:10 PM EST 06/17/2024 11:10 PM EST Bobby Loja MD POINT OF CARE TEST O NIKA Performing Organization Address City/[facility]/ZIP Co de Phone Number [facility] [place] [address] * POC, GLUCOSE (06/17/2024 7:54 PM EST) Glucometer, POC 126 65 - 199 mg/dL 06/17/2024 7:54 PM EST [facility] Comment:Supplemental ranges: <140 mg/dL before meals <180 mg/dL all other times of the day. Blood CAPILLARY BLOOD / Unknown 06/17/2024 7:54 PM EST 06/17/2024 7:54 PM EST Bobby Loja MD POINT OF CARE TEST O NIKA Performing Organization Address [facility] Co de Phone Number [facility] [place] [address] * POC, GLUCOSE (06/17/2024 4:07 PM EST) Glucometer, POC 141 65 - 199 mg/dL 06/17/2024 4:12 PM EST [facility] [facility] Comment:Supplemental ranges: <140 mg/dL before meals <180 mg/dL all other times of the day. Blood CAPILLARY BLOOD / Unknown 06/17/2024 4:07 PM EST 06/17/2024 4:12 PM EST Bobby Loja MD POINT OF CARE TEST O NIKA Performing Organization Address [facility] de Phone Number [facility] [place] [address] * XR Chest PA & Lateral (Generic) (06/17/2024 1:46 PM EST) WORKSTATION ID [id number] RAD Anatomical Region Laterality Modality Chest N/A [...] who have questions please contact the health skin care therapist that requested your imaging first. ? Electronically signed by: Josselyn Spence MD, [facility] ([phone]), at 06/17/2024 4:49 PM Narrative 06/17/2024 4:49 [...] patients who have questions please contactthe health skin care therapist that requested your imaging first. Electronically signed by: Josselyn Spence MD, [facility]([phone]), at 06/17/2024 4:49 PM Keila Hanley APRN IMG DX ORDERABLES * (ABNORMAL) POC, GLUCOSE (06/17/2024 11:04 AM EST) Glucometer, POC 245(H) 65 - 199 mg/dL 06/17/2024 11:04 AM EST [facility] Comment:Supplemental ranges: <140 mg/dL before meals <180 mg/dL all other times of the day. Blood CAPILLARY BLOOD / Unknown 06/17/2024 11:04 AM EST 06/17/2024 11:04 AM EST Bobby Loja MD POINT OF CARE TEST O NIKA Performing Organization Address [facility] Co de Phone Number [facility] [place] [address] * POC, GLUCOSE (06/17/2024 7:49 AM EST) Glucometer, POC 141 65 - 199 mg/dL 06/17/2024 7:55 AM EST [facility] Comment:Supplemental ranges: <140 mg/dL before meals <180 mg/dL all other times of the day. Blood CAPILLARY BLOOD / Unknown 06/17/2024 7:49 AM EST 06/17/2024 7:55 AM EST Bobby Loja MD POINT OF CARE TEST O NIKA Performing Organization Address [facility] Co de Phone Number [facility] [place] [address] * POC, GLUCOSE (06/17/2024 4:16 AM EST) Glucometer, POC 139 65 - 199 mg/dL 06/17/2024 4:16 AM EST [facility] Comment:Supplemental ranges: <140 mg/dL before meals <180 mg/dL all other times of the day. Blood CAPILLARY BLOOD / Unknown 06/17/2024 4:16 AM EST 06/17/2024 4:17 AM EST Bobby Loja MD POINT OF CARE TEST O RDERABLES [facility] [place] [address] * Lactate, Whole Blood (06/17/2024 2:39 AM EST) [facility] Lactate, Whole Blood 1.3 0.5 - 2.2 mmol/L 06/17/2024 2:46 AM EST [facility] Blood VENOUS BLOOD SPECIMEN / Unknown Venipuncture / Unknown 06/17/2024 2:39 AM EST 06/17/2024 2:43 AM EST Bobby Loja MD CHEMISTRY ORDERABLES [facility] [place] [address] * (ABNORMAL) Hemogram (06/17/2024 2:39 AM EST) [facility] White Blood Cell 13.53(H) 4.00 - 9.50 x10(3)/mc L 06/17/2024 2:53 AM [facility] Red Blood Cell 3.55(L) 4.58 - 5.54 x10(6)/mc L 06/17/2024 2:53 AM [facility] Hemoglobin 10.8(L) 13.7 - 16.5 g/dL 06/17/2024 2:53 AM [facility] Hematocrit 33.0(L) 40.5 - 48.5 % 06/17/2024 2:53 AM [facility] Mean Cell Volume 93.0 82.9 - 93.1 fL 06/17/2024 2:53 AM [facility] Mean Cell Hemoglobin 30.4 27.5 - 32.1 pg 06/17/2024 2:53 AM [facility] Mean Cell Hemoglobin Concentration 32.7 32.0 - 35.7 g/dL 06/17/2024 2:53 AM [facility] Platelet 101(L) 145 - 357 x10(3)/mc L 06/17/2024 2:53 AM [facility] Mean Platelet Volume 10.4 7.6 - 12.9 fL 06/17/2024 2:53 AM [facility] RDW Standard Deviation 48.4(H) 36.0 - 45.0 fL 06/17/2024 2:53 AM [facility] RDW coefficient of variation 14.1(H) 11.4 - 13.8 % 06/17/2024 2:53 AM [facility] NRBC% auto 0.0 % 06/17/2024 2:53 AM [facility] NRBC Absolute <0.01 <0.01 x10(3)/mc L 06/17/2024 2:53 AM [facility] Blood VENOUS BLOOD SPECIMEN / Unknown Venipuncture / Unknown 06/17/2024 2:39 AM EST 06/17/2024 2:43 AM EST Bobby Loja MD HEMATOLOGY ORDERABLE S [facility] [place] [address] * (ABNORMAL) Basic Metabolic Panel (06/17/2024 2:39 AM EST) Glucose 149 65 - 199 mg/dL 06/17/2024 3:14 AM [facility] Comment:Glucose Concentratio n >=200 mg/dL plus symptoms is consistent with Diabetes Mellitus. Blood Urea Nitrogen 42(H) 10 - 20 mg/dL 06/17/2024 3:14 AM [facility] Creatinine 1.52(H) 0.80 - 1.50 mg/dL 06/17/2024 3:14 AM [facility] Sodium 133(L) 135 - 145 mMol/L 06/17/2024 3:14 AM [facility] Potassium 4.5 3.5 - 5.0 mMol/L 06/17/2024 3:14 AM [facility] Chloride 101 98 - 107 mMol/L 06/17/2024 3:14 AM EST [facility] Carbon Dioxide 23 22 - 31 mMol/L 06/17/2024 3:14 AM [facility] Anion Gap 9 5 - 15 mMol/L 06/17/2024 3:14 AM [facility] Calcium 8.8 8.5 - 10.5 mg/dL 06/17/2024 3:14 AM EST [facility] Est Glomerular Filtration Rate - Male 50 mL/min/1. 73 m?? 06/17/2024 3:14 AM EST [facility] [...] Loja MD CHEMISTRY ORDERABLES Performing Organization Address City/State/[facility] Co de Phone Number [facility] [place] [address] * (ABNORMAL) POC, GLUCOSE (06/17/2024 12:13 AM EST) Glucometer, POC 211(H) 65 - 199 mg/dL 06/17/2024 12:13 AM EST [facility] Comment:Supplemental ranges: <140 mg/dL before meals <180 mg/dL all other times of the day. Blood CAPILLARY BLOOD / Unknown 06/17/2024 12:13 AM EST 06/17/2024 12:14 AM EST Bobby Loja MD POINT OF CARE TEST O RDERABLES Performing Organization Address City/[facility] Co de Phone Number [facility] [place] [address] * (ABNORMAL) POC, GLUCOSE (06/16/2024 7:22 PM EST) Glucometer, POC 229(H) 65 - 199 mg/dL 06/16/2024 7:22 PM EST [facility] Comment:Supplemental ranges: <140 mg/dL before meals <180 mg/dL all other times of the day. Blood CAPILLARY BLOOD / Unknown 06/16/2024 7:22 PM EST 06/16/2024 7:22 PM EST Bobby Loja MD POINT OF CARE TEST O NIKA Performing Organization Address [facility] Co de Phone Number [facility] [place] [address] * (ABNORMAL) POC, GLUCOSE (06/16/2024 6:14 PM EST) Glucometer, POC 220(H) 65 - 199 mg/dL 06/16/2024 6:14 PM EST [facility] Comment:Supplemental ranges: <140 mg/dL before meals <180 mg/dL all other times of the day. Blood CAPILLARY BLOOD / Unknown 06/16/2024 6:14 PM EST 06/16/2024 6:14 PM EST Bobby Loja MD POINT OF CARE TEST O NIKA Performing Organization Address City/[facility] Co de Phone Number [facility] [place] [address] * Lactate, Whole Blood (06/16/2024 6:14 PM EST) Lactate, Whole Blood 1.8 0.5 - 2.2 mmol/L 06/16/2024 6:27 PM EST [facility] Blood VENOUS BLOOD SPECIMEN / Unknown Venipuncture / Unknown 06/16/2024 6:14 PM EST 06/16/2024 6:25 PM EST Bobby Loja MD CHEMISTRY ORDERABLES Performing Organization Address [facility] Co de Phone Number [facility] [place] [address] * (ABNORMAL) POC, GLUCOSE (06/16/2024 4:14 PM EST) Glucometer, POC 240(H) 65 - 199 mg/dL 06/16/2024 4:14 PM EST [facility] Comment:Supplemental ranges: <140 mg/dL before meals <180 mg/dL all other times of the day. Blood CAPILLARY BLOOD / Unknown 06/16/2024 4:14 PM EST 06/16/2024 4:14 PM EST Bobby Loja MD POINT OF CARE TEST O RDERABLES Performing Organization Address [facility] Co de Phone Number [facility] [place] [address] * POC, GLUCOSE (06/16/2024 11:49 AM EST) Glucometer, POC 199 65 - 199 mg/dL 06/16/2024 11:49 AM EST [facility] Comment:Supplemental ranges: <140 mg/dL before meals <180 mg/dL all other times of the day. Blood CAPILLARY BLOOD / Unknown 06/16/2024 11:49 AM EST 06/16/2024 11:49 AM EST Bobby Loja MD POINT OF CARE TEST O NIKA Performing Organization Address [facility] Co de Phone Number [facility] [place] [address] * (ABNORMAL) Hemogram (06/16/2024 11:44 AM EST) White Blood Cell 17.91(H) 4.00 - 9.50 x10(3)/mc L 06/16/2024 12:25 PM [facility] Red Blood Cell 3.47(L) 4.58 - 5.54 x10(6)/mc L 06/16/2024 12:25 PM [facility] Hemoglobin 10.5(L) 13.7 - 16.5 g/dL 06/16/2024 12:25 PM [facility] Hematocrit 33.1(L) 40.5 - 48.5 % 06/16/2024 12:25 PM [facility] Mean Cell Volume 95.4(H) 82.9 - 93.1 fL 06/16/2024 12:25 PM [facility] Mean Cell Hemoglobin 30.3 27.5 - 32.1 pg 06/16/2024 12:25 PM [facility] Mean Cell Hemoglobin Concentration 31.7(L) 32.0 - 35.7 g/dL 06/16/2024 12:25 PM [facility] Platelet 101(L) 145 - 357 x10(3)/mc L 06/16/2024 12:25 PM [facility] Mean Platelet Volume 10.6 7.6 - 12.9 fL 06/16/2024 12:25 PM [facility] RDW Standard Deviation 49.5(H) 36.0 - 45.0 fL 06/16/2024 12:25 PM [facility] RDW coefficient of variation 14.2(H) 11.4 - 13.8 % 06/16/2024 12:25 PM [facility] NRBC% auto 0.0 % 06/16/2024 12:25 PM [facility] NRBC Absolute <0.01 <0.01 x10(3)/mc L 06/16/2024 12:25 PM [facility] Blood VENOUS BLOOD SPECIMEN / Unknown Venipuncture / Unknown 06/16/2024 11:44 AM EST 06/16/2024 12:03 PM EST Bobby Loja MD HEMATOLOGY ORDERABLE S Performing Organization Address [facility]/ZIP Co de Phone Number [facility] [place] [address] * Lactate, Whole Blood (06/16/2024 9:02 AM EST) Lactate, Whole Blood 1.8 0.5 - 2.2 mmol/L 06/16/2024 9:19 AM EST [facility] Blood VENOUS BLOOD SPECIMEN / Unknown Venipuncture / Unknown 06/16/2024 9:02 AM EST 06/16/2024 9:17 AM EST Bobby Loja MD CHEMISTRY ORDERABLES Performing Organization Address [facility] Co de Phone Number [facility] [place] [address] * POC, GLUCOSE (06/16/2024 7:44 AM EST) Glucometer, POC 129 65 - 199 mg/dL 06/16/2024 7:44 AM EST [facility] Comment:Supplemental ranges: <140 mg/dL before meals <180 mg/dL all other times of the day. Blood CAPILLARY BLOOD / Unknown 06/16/2024 7:44 AM EST 06/16/2024 7:44 AM EST Narrative Authorizing Provider Result Saranya Loja MD POINT OF CARE TEST O RDERABLES Performing Organization Address [facility] Co de Phone Number [facility] [place] [address] * POC, GLUCOSE (06/16/2024 4:01 AM EST) Glucometer, POC 158 65 - 199 mg/dL 06/16/2024 4:01 AM EST [facility] Comment:Supplemental ranges: <140 mg/dL before meals <180 mg/dL all other times of the day. Blood CAPILLARY BLOOD / Unknown 06/16/2024 4:01 AM EST 06/16/2024 4:01 AM EST Narrative Authorizing Provider Result Saranya Loja MD POINT OF CARE TEST O RDERABLES [facility] [place] [address] * (ABNORMAL) Basic Metabolic Panel (06/16/2024 2:23 AM EST) Glucose 177 65 - 199 mg/dL 06/16/2024 3:13 AM [facility] Comment:Glucose Concentratio n >=200 mg/dL plus symptoms is consistent with Diabetes Mellitus. Blood Urea Nitrogen 37(H) 10 - 20 mg/dL 06/16/2024 3:13 AM [facility] Creatinine 2.10(H) 0.80 - 1.50 mg/dL 06/16/2024 3:13 AM [facility] Sodium 132(L) 135 - 145 mMol/L 06/16/2024 3:13 AM [facility] Potassium 4.5 3.5 - 5.0 mMol/L 06/16/2024 3:13 AM [facility] Chloride 99 98 - 107 mMol/L 06/16/2024 3:13 AM [facility] Carbon Dioxide 22 22 - 31 mMol/L 06/16/2024 3:13 AM [facility] Anion Gap 11 5 - 15 mMol/L 06/16/2024 3:13 AM [facility] Calcium 9.0 8.5 - 10.5 mg/dL 06/16/2024 3:13 AM [facility] Est Glomerular Filtration Rate - Male 34 mL/min/1. 73 m?? 06/16/2024 3:13 AM [facility] Comment: This [...] Loja MD CHEMISTRY ORDERABLES Performing Organization Address [facility]/ZIP Co de Phone Number [facility] [place] [address] * POC, GLUCOSE (06/16/2024 2:21 AM EST) Glucometer, POC 176 65 - 199 mg/dL 06/16/2024 2:31 AM EST [facility] Comment:Supplemental ranges: <140 mg/dL before meals <180 mg/dL all other times of the day. Blood CAPILLARY BLOOD / Unknown 06/16/2024 2:21 AM EST 06/16/2024 2:31 AM EST Narrative Authorizing Provider Result Saranya Loja MD POINT OF CARE TEST O RDERABLES Performing Organization Address [facility] Co de Phone Number [facility] [place] [address] * (ABNORMAL) POC, GLUCOSE (06/16/2024 12:09 AM EST) Glucometer, POC 222(H) 65 - 199 mg/dL 06/16/2024 12:09 AM EST [facility] Comment:Supplemental ranges: <140 mg/dL before meals <180 mg/dL all other times of the day. Blood CAPILLARY BLOOD / Unknown 06/16/2024 12:09 AM EST 06/16/2024 12:09 AM EST Narrative Authorizing Provider Result Saranya Loja MD POINT OF CARE TEST O RDERABLES Performing Organization Address City/[facility]/ZIP Co de Phone Number [facility] [place] [address] * (ABNORMAL) POC, GLUCOSE (06/15/2024 10:07 PM EST) Glucometer, POC 320(H) 65 - 199 mg/dL 06/15/2024 10:07 PM EST [facility] Comment:Supplemental ranges: <140 mg/dL before meals <180 mg/dL all other times of the day. Blood CAPILLARY BLOOD / Unknown 06/15/2024 10:07 PM EST 06/15/2024 10:07 PM EST Bobby Loja MD POINT OF CARE TEST O NIKA Performing Organization Address [facility] Co de Phone Number [facility] [place] [address] * (ABNORMAL) POC, GLUCOSE (06/15/2024 7:56 PM EST) Glucometer, POC 304(H) 65 - 199 mg/dL 06/15/2024 7:56 PM EST [facility] Comment:Supplemental ranges: <140 mg/dL before meals <180 mg/dL all other times of the day. Blood CAPILLARY BLOOD / Unknown 06/15/2024 7:56 PM EST 06/15/2024 7:56 PM EST Bobby Loja MD POINT OF CARE TEST O NIKA Performing Organization Address City/[facility] Co de Phone Number [facility] [place] [address] * (ABNORMAL) POC, GLUCOSE (06/15/2024 7:52 PM EST) Glucometer, POC 288(H) 65 - 199 mg/dL 06/15/2024 7:52 PM EST [facility] Comment:Supplemental ranges: <140 mg/dL before meals <180 mg/dL all other times of the day. Blood CAPILLARY BLOOD / Unknown 06/15/2024 7:52 PM EST 06/15/2024 7:52 PM EST Bobby Loja MD POINT OF CARE TEST O NIKA Performing Organization Address City/[facility] Co de Phone Number [facility] [place] [address] * POC, GLUCOSE (06/15/2024 4:21 PM EST) Glucometer, POC 192 65 - 199 mg/dL 06/15/2024 4:21 PM EST [facility] Comment:Supplemental ranges: <140 mg/dL before meals <180 mg/dL all other times of the day. Blood CAPILLARY BLOOD / Unknown 06/15/2024 4:21 PM EST 06/15/2024 4:21 PM EST Bobby Loja MD POINT OF CARE TEST O NIKA Performing Organization Address [facility] Co de Phone Number [facility] [place] [address] * POC, GLUCOSE (06/15/2024 3:27 PM EST) Glucometer, POC 155 65 - 199 mg/dL 06/15/2024 3:27 PM EST [facility] Comment:Supplemental ranges: <140 mg/dL before meals <180 mg/dL all other times of the day. Blood CAPILLARY BLOOD / Unknown 06/15/2024 3:27 PM EST 06/15/2024 3:27 PM EST Bobby Loja MD POINT OF CARE TEST O NIKA Performing Organization Address City/[facility]/ZIP Co de Phone Number [facility] [place] [address] * POC, GLUCOSE (06/15/2024 2:23 PM EST) Glucometer, POC 160 65 - 199 mg/dL 06/15/2024 2:23 PM EST [facility] Comment:Supplemental ranges: <140 mg/dL before meals <180 mg/dL all other times of the day. Blood CAPILLARY BLOOD / Unknown 06/15/2024 2:23 PM EST 06/15/2024 2:23 PM EST Bobby Loja MD POINT OF CARE TEST O RDBECKIE Performing Organization Address City/[facility] Co de Phone Number [facility] [place] [address] * POC, GLUCOSE (06/15/2024 1:26 PM EST) Glucometer, POC 167 65 - 199 mg/dL 06/15/2024 1:26 PM EST [facility] Comment:Supplemental ranges: <140 mg/dL before meals <180 mg/dL all other times of the day. Blood CAPILLARY BLOOD / Unknown 06/15/2024 1:26 PM EST 06/15/2024 1:26 PM EST Bobby Loja MD POINT OF CARE TEST O NIKA Performing Organization Address [facility] Co de Phone Number [facility] [place] [address] * (ABNORMAL) POC, GLUCOSE (06/15/2024 12:55 PM EST) Glucometer, POC 210(H) 65 - 199 mg/dL 06/15/2024 12:55 PM EST [facility] Comment:Supplemental ranges: <140 mg/dL before meals <180 mg/dL all other times of the day. Blood CAPILLARY BLOOD / Unknown 06/15/2024 12:55 PM EST 06/15/2024 12:55 PM EST Bobby Loja MD POINT OF CARE TEST O NIKA Performing Organization Address City/[facility] Co de Phone Number [facility] [place] [address] * (ABNORMAL) POC, GLUCOSE (06/15/2024 11:29 AM EST) Glucometer, POC 220(H) 65 - 199 mg/dL 06/15/2024 11:29 AM EST [facility] Comment:Supplemental ranges: <140 mg/dL before meals <180 mg/dL all other times of the day. Blood CAPILLARY BLOOD / Unknown 06/15/2024 11:29 AM EST 06/15/2024 11:29 AM EST Bobby Loja MD POINT OF CARE TEST O RDERABLES [facility] [place] [address] * (ABNORMAL) Basic Metabolic Panel (06/15/2024 11:23 AM EST) Glucose 215(H) 65 - 199 mg/dL 06/15/2024 12:08 PM [facility] Comment:Glucose Concentratio n >=200 mg/dL plus symptoms is consistent with Diabetes Mellitus. Blood Urea Nitrogen 24(H) 10 - 20 mg/dL 06/15/2024 12:08 PM [facility] Creatinine 1.54(H) 0.80 - 1.50 mg/dL 06/15/2024 12:08 PM [facility] Sodium 135 135 - 145 mMol/L 06/15/2024 12:08 PM [facility] Potassium 4.5 3.5 - 5.0 mMol/L 06/15/2024 12:08 PM [facility] Chloride 105 98 - 107 mMol/L 06/15/2024 12:08 PM [facility] Carbon Dioxide 19(L) 22 - 31 mMol/L 06/15/2024 12:08 PM [facility] Anion Gap 11 5 - 15 mMol/L 06/15/2024 12:08 PM [facility] Calcium 8.3(L) 8.5 - 10.5 mg/dL 06/15/2024 12:08 PM [facility] Est Glomerular Filtration Rate - Male 49 mL/min/1. 73 m?? 06/15/2024 12:08 PM [facility] Comment: This patient's [...] Loja MD CHEMISTRY ORDERABLES Performing Organization Address [facility] Co de Phone Number [facility] [place] [address] * POC, GLUCOSE (06/15/2024 10:29 AM EST) Glucometer, POC 189 65 - 199 mg/dL 06/15/2024 10:29 AM EST [facility] Comment:Supplemental ranges: <140 mg/dL before meals <180 mg/dL all other times of the day. Blood CAPILLARY BLOOD / Unknown 06/15/2024 10:29 AM EST 06/15/2024 10:29 AM EST Narrative Authorizing Provider Result Saranya Loja MD POINT OF CARE TEST O RDERABLES Performing Organization Address [facility] Co de Phone Number [facility] [place] [address] * POC, GLUCOSE (06/15/2024 9:45 AM EST) Glucometer, POC 178 65 - 199 mg/dL 06/15/2024 9:45 AM EST [facility] Comment:Supplemental ranges: <140 mg/dL before meals <180 mg/dL all other times of the day. Blood CAPILLARY BLOOD / Unknown 06/15/2024 9:45 AM EST 06/15/2024 9:45 AM EST Bobby Loja MD POINT OF CARE TEST O NIKA [facility] [place] [address] * (ABNORMAL) Cooximetry, POC (06/15/2024 9:31 AM EST) pO2, Coox 38 mmHg 06/15/2024 9:34 AM [facility] Hemoglobin, Coox 12.9(L) 13.7 - 16.5 g/dL 06/15/2024 9:34 AM [facility] Oxyhemoglobin, Coox 72.1 % 06/15/2024 9:34 AM [facility] Carboxyhemoglo bin, Coox 0.9 % 06/15/2024 9:34 AM [facility] Comment: Nonsmokers: 0.5-1.5% COHB ?? Smokers: Variable ??but usually less than 10% ?? Toxic: 20-30% COHB ?? Lethal: Greater than 60% COHB Methemoglobin, Coox 0.3 <=1.5 % 06/15/2024 9:34 AM [facility] Blood (Mixed Venous) 06/15/2024 9:31 AM EST 06/15/2024 9:34 AM EST Bobby Loja MD POINT OF CARE TEST O NIKA [facility] [place] [address] * Cooximetry, POC (06/15/2024 9:22 AM EST) pO2, Coox 30 mmHg 06/15/2024 9:25 AM [facility] Hemoglobin, Coox 06/15/2024 9:25 AM [facility] Comment:QUES Oxyhemoglobin, Coox 06/15/2024 9:25 AM [facility] Comment:QUES Carboxyhemoglo bin, Coox 06/15/2024 9:25 AM [facility] Comment:QUES Methemoglobin, Coox 06/15/2024 9:25 AM [facility] Comment:QUES Blood (Mixed Venous) 06/15/2024 9:22 AM EST 06/15/2024 9:25 AM EST Bobby Loja MD POINT OF CARE TEST O [facility] [place] [address] * (ABNORMAL) Blood Gas, Arterial POC (06/15/2024 9:19 AM EST) pH, Arterial 7.31(L) 7.35 - 7.45 06/15/2024 9:21 AM [facility] PCO2, Arterial 36 35 - 45 mmHg 06/15/2024 9:21 AM [facility] PO2, Arterial 94 85 - 104 mmHg 06/15/2024 9:21 AM [facility] Bicarbonate, Arterial 18.0(L) 20.0 - 26.0 mmol/L 06/15/2024 9:21 AM [facility] Base Excess, Arterial -8.2(L) -3.0 - 3.0 mmol/L 06/15/2024 9:21 AM [facility] [facility] Hemoglobin, Arterial 12.7(L) 13.7 - 16.5 g/dL 06/15/2024 9:21 AM [facility] Oxyhemoglobin, Arterial 96.0 94.0 - 97.0 % 06/15/2024 9:21 AM [facility] Carboxyhemoglobin , Arterial 0.5 % 06/15/2024 9:21 AM [facility] Comment: Nonsmokers: 0.5-1.5% COHB ?? Smokers: Variable ??but usually less than 10% ?? Toxic: 20-30% COHB ?? Lethal: Greater than 60% COHB Methemoglobin, Arterial 0.3 <=1.5 % 06/15/2024 9:21 AM [facility] Sodium, Arterial 136 135 - 145 mmol/L 06/15/2024 9:21 AM [facility] Potassium, Arterial 4.0 3.5 - 5.0 mmol/L 06/15/2024 9:21 AM [facility] Chloride, Arterial 106 98 - 107 mmol/L 06/15/2024 9:21 AM [facility] Lactate, Arterial 1.7 0.5 - 2.2 mmol/L 06/15/2024 9:21 AM [facility] Flow Rate 2.0 L/min 06/15/2024 9:21 AM [facility] IONIZED CALCIUM, ARTERIAL 1.14(L) 1.15 - 1.33 mmol/L 06/15/2024 9:21 AM [facility] Glucose, Arterial 193 65 - 199 mg/dL 06/15/2024 9:21 AM [facility] Comment:Glucose Concentratio n >=200 mg/dL plus symptoms is consistent with Diabetes Mellitus. Blood ARTERIAL BLOOD / Unknown 06/15/2024 9:19 AM EST 06/15/2024 9:20 AM EST Bobby Loja MD POINT OF CARE TEST O RDERABLES [facility] [place] [address] * (ABNORMAL) POC, GLUCOSE (06/15/2024 8:37 AM EST) Glucometer, POC 204(H) 65 - 199 mg/dL 06/15/2024 8:37 AM [facility] Comment:Supplemental ranges: <140 mg/dL before meals <180 mg/dL all other times of the day. Blood CAPILLARY BLOOD / Unknown 06/15/2024 8:37 AM EST 06/15/2024 8:37 AM EST Bobby Loja MD POINT OF CARE TEST O RDERAPIETER Performing Organization Address [facility] de Phone Number [facility] [place] [address] * POC, GLUCOSE (06/15/2024 7:37 AM EST) Glucometer, POC 199 65 - 199 mg/dL 06/15/2024 7:37 AM EST [facility] Comment:Supplemental ranges: <140 mg/dL before meals <180 mg/dL all other times of the day. Blood CAPILLARY BLOOD / Unknown 06/15/2024 7:37 AM EST 06/15/2024 7:38 AM EST Bobby Loja MD POINT OF CARE TEST O NIKA Performing Organization Address [facility] de Phone Number [facility] [place] [address] * (ABNORMAL) POC, GLUCOSE (06/15/2024 7:01 AM EST) Glucometer, POC 203(H) 65 - 199 mg/dL 06/15/2024 7:01 AM EST [facility] Comment:Supplemental ranges: <140 mg/dL before meals <180 mg/dL all other times of the day. Blood CAPILLARY BLOOD / Unknown 06/15/2024 7:01 AM EST 06/15/2024 7:01 AM EST Bobby Loja MD POINT OF CARE TEST O NIKA Performing Organization Address [facility] Co de Phone Number [facility] [place] [address] * XR Chest One View (06/15/2024 6:31 AM EST) WORKSTATION ID [id number] RAD Anatomical Region Laterality Modality Chest N/A [...] who have questions please contact the health skin care therapist that requested your imaging first. ? Electronically signed by: Stuart Aponte MD, [facility] ??([phone]), at 06/15/2024 10:38 AM Narrative 06/15/2024 10:38 [...] pleural effusion or pneumothorax. Procedure Note Stuart Aponet MD - 06/15/2024 EXAMINATION: XR CHEST ONE [...] patients who have questions please contactthe health skin care therapist that requested your imaging first. Electronically signed by: Stuart Aponte MD, [facility]([phone]), at 06/15/2024 10:38 AM Authorizing Provider Result Saranya Loja MD IMG DX ORDERABLES * POC, GLUCOSE (06/15/2024 6:02 AM EST) Glucometer, POC 179 65 - 199 mg/dL 06/15/2024 6:02 AM EST [facility] Comment:Supplemental ranges: <140 mg/dL before meals <180 mg/dL all other times of the day. Blood CAPILLARY BLOOD / Unknown 06/15/2024 6:02 AM EST 06/15/2024 6:02 AM EST Bobby Loja MD POINT OF CARE TEST O RDERAPIETER Performing Organization Address City/[facility]/ZIP Co de Phone Number [facility] [place] [address] * POC, GLUCOSE (06/15/2024 5:06 AM EST) Glucometer, POC 160 65 - 199 mg/dL 06/15/2024 5:06 AM EST [facility] Comment:Supplemental ranges: <140 mg/dL before meals <180 mg/dL all other times of the day. Blood CAPILLARY BLOOD / Unknown 06/15/2024 5:06 AM EST 06/15/2024 5:06 AM EST Narrative Authorizing Provider Result Saranya Loja MD POINT OF CARE TEST O NIKA [facility] [place] [address] * POC, GLUCOSE (06/15/2024 4:05 AM EST) Glucometer, POC 160 65 - 199 mg/dL 06/15/2024 4:06 AM EST [facility] Comment:Supplemental ranges: <140 mg/dL before meals <180 mg/dL all other times of the day. Blood CAPILLARY BLOOD / Unknown 06/15/2024 4:05 AM EST 06/15/2024 4:06 AM EST Bobby Loja MD POINT OF CARE TEST O NIKA Performing Organization Address [facility] Co de Phone Number [facility] [place] [address] * POC, GLUCOSE (06/15/2024 3:07 AM EST) Glucometer, POC 151 65 - 199 mg/dL 06/15/2024 3:07 AM EST [facility] Comment:Supplemental ranges: <140 mg/dL before meals <180 mg/dL all other times of the day. Blood CAPILLARY BLOOD / Unknown 06/15/2024 3:07 AM EST 06/15/2024 3:07 AM EST Narrative Authorizing Provider Result Saranya Loja MD POINT OF CARE TEST Abimael MAHER Performing Organization Address [facility] Co de Phone Number [facility] [place] [address] * (ABNORMAL) Basic Metabolic Panel (06/15/2024 1:48 AM EST) Glucose 140 65 - 199 mg/dL 06/15/2024 2:38 AM [facility] Comment:Glucose Concentratio n >=200 mg/dL plus symptoms is consistent with Diabetes Mellitus. Blood Urea Nitrogen 21(H) 10 - 20 mg/dL 06/15/2024 2:38 AM [facility] Creatinine 1.27 0.80 - 1.50 mg/dL 06/15/2024 2:38 AM [facility] Sodium 140 135 - 145 mMol/L 06/15/2024 2:38 AM [facility] Potassium 4.4 3.5 - 5.0 mMol/L 06/15/2024 2:38 AM [facility] Chloride 108(H) 98 - 107 mMol/L 06/15/2024 2:38 AM [facility] Carbon Dioxide 23 22 - 31 mMol/L 06/15/2024 2:38 AM EST [facility] Anion Gap 9 5 - 15 mMol/L 06/15/2024 2:38 AM [facility] Calcium 8.3(L) 8.5 - 10.5 mg/dL 06/15/2024 2:38 AM [facility] Est Glomerular Filtration Rate - Male 62 mL/min/1. 73 m?? 06/15/2024 2:38 AM [facility] Comment: This [...] AM EST Bobby Loja MD CHEMISTRY ORDERABLES [facility] [place] [address] * (ABNORMAL) CBC (with Diff) (06/15/2024 1:48 AM EST) White Blood Cell 11.71(H) 4.00 - 9.50 x10(3)/mc L 06/15/2024 2:13 AM EST [facility] Red Blood Cell 4.14(L) 4.58 - 5.54 x10(6)/mc L 06/15/2024 2:13 AM EST [facility] Hemoglobin 12.5(L) 13.7 - 16.5 g/dL 06/15/2024 2:13 AM [facility] Hematocrit 38.4(L) 40.5 - 48.5 % 06/15/2024 2:13 AM [facility] Mean Cell Volume 92.8 82.9 - 93.1 fL 06/15/2024 2:13 AM [facility] Mean Cell Hemoglobin 30.2 27.5 - 32.1 pg 06/15/2024 2:13 AM [facility] Mean Cell Hemoglobin Concentration 32.6 32.0 - 35.7 g/dL 06/15/2024 2:13 AM [facility] Platelet 101(L) 145 - 357 x10(3)/mc L 06/15/2024 2:13 AM [facility] Mean Platelet Volume 10.0 7.6 - 12.9 fL 06/15/2024 2:13 AM [facility] RDW Standard Deviation 48.8(H) 36.0 - 45.0 fL 06/15/2024 2:13 AM [facility] RDW coefficient of variation 14.2(H) 11.4 - 13.8 % 06/15/2024 2:13 AM [facility] NRBC% auto 0.0 % 06/15/2024 2:13 AM [facility] NRBC Absolute <0.01 <0.01 x10(3)/mc L 06/15/2024 2:13 AM [facility] Neutrophil % 79.7 % 06/15/2024 2:13 AM [facility] Neutrophil Absolute (ANC) - Automated 9.34(H) 1.70 - 6.10 x10(3)/mc L 06/15/2024 2:13 AM [facility] Lymph % 8.0 % 06/15/2024 2:13 AM [facility] Lymph Absolute 0.94 0.90 - 3.20 x10(3)/mc L 06/15/2024 2:13 AM [facility] Monocyte % 11.4 % 06/15/2024 2:13 AM EST [facility] Monocyte Absolute 1.33(H) 0.30 - 0.90 x10(3)/mc L 06/15/2024 2:13 AM EST [facility] Eos % 0.2 % 06/15/2024 2:13 AM EST [facility] Eos Absolute <0.04 0.00 - 0.40 x10(3)/mc L 06/15/2024 2:13 AM EST [facility] Basophil % 0.2 % 06/15/2024 2:13 AM EST [facility] Baso Absolute <0.04 0.00 - 0.10 x10(3)/mc L 06/15/2024 2:13 AM EST [facility] Immature Gran % 0.5 % 2:13 AM [facility] Immature Gran Absolute 0.06(H) 0.00 - 0.04 x10(3)/mc L 06/15/2024 2:13 AM EST [facility] Blood VENOUS BLOOD SPECIMEN / Unknown Venipuncture / Unknown 06/15/2024 1:48 AM EST 06/15/2024 1:52 AM EST Bobby Loja MD HEMATOLOGY ORDERABLE S [facility] [place] [address] * (ABNORMAL) Troponin - Single (06/15/2024 1:48 [...] troponin value can be found in the [facility] Test Catalog Troponin - [email or web address] Reference: [place] Definition of Myocardial Infarction. Journal of the [place] [employer] 2018;72:8182-7555 Blood VENOUS BLOOD SPECIMEN / Unknown Venipuncture / Unknown 06/15/2024 1:48 AM EST 06/15/2024 1:52 AM EST Bobby Loja MD CHEMISTRY ORDERABLES [facility] [place] [address] * (ABNORMAL) Blood Gas, Arterial POC (06/15/2024 1:46 AM EST) pH, Arterial 7.33(L) 7.35 - 7.45 06/15/2024 1:47 AM EST [facility] PCO2, Arterial 40 35 - 45 mmHg 06/15/2024 1:47 AM EST [facility] PO2, Arterial 131(H) 85 - 104 mmHg 06/15/2024 1:47 AM EST [facility] Bicarbonate, Arterial 20.7 20.0 - 26.0 mmol/L 06/15/2024 1:47 AM EST [facility] Base Excess, Arterial -5.2(L) -3.0 - 3.0 mmol/L 06/15/2024 1:47 AM EST [facility] Hemoglobin, Arterial 13.4(L) 13.7 - 16.5 g/dL 06/15/2024 1:47 AM [facility] Oxyhemoglobin, Arterial 97.9(H) 94.0 - 97.0 % 06/15/2024 1:47 AM [facility] Carboxyhemoglobin , Arterial 0.5 % 06/15/2024 1:47 AM [facility] Comment: Nonsmokers: 0.5-1.5% COHB ?? Smokers: Variable ??but usually less than 10% ?? Toxic: 20-30% COHB ?? Lethal: Greater than 60% COHB Methemoglobin, Arterial 0.3 <=1.5 % 06/15/2024 1:47 AM [facility] Sodium, Arterial 139 135 - 145 mmol/L 06/15/2024 1:47 AM [facility] Potassium, Arterial 4.2 3.5 - 5.0 mmol/L 06/15/2024 1:47 AM [facility] Chloride, Arterial 107 98 - 107 mmol/L 06/15/2024 1:47 AM [facility] Lactate, Arterial 1.8 0.5 - 2.2 mmol/L 06/15/2024 1:47 AM [facility] Fraction of Inspired Oxygen 40 % 06/15/2024 1:47 AM [facility] PF Ratio 328 Ratio 06/15/2024 1:47 AM [facility] Comment:PF ratio calculated using the non-temperature corrected pO2 result. IONIZED CALCIUM, ARTERIAL 1.17 1.15 - 1.33 mmol/L 06/15/2024 1:47 AM [facility] Glucose, Arterial 127 65 - 199 mg/dL 06/15/2024 1:47 AM [facility] Comment:Glucose Concentratio n >=200 mg/dL plus symptoms is consistent with Diabetes Mellitus. Blood ARTERIAL BLOOD / Unknown 06/15/2024 1:46 AM EST 06/15/2024 1:47 AM EST Bobby Loja MD POINT OF CARE TEST O RDERABLES [facility] [place] [address] * POC, GLUCOSE (06/15/2024 1:05 AM EST) Glucometer, POC 116 65 - 199 mg/dL 06/15/2024 1:05 AM EST [facility] Comment:Supplemental ranges: <140 mg/dL before meals <180 mg/dL all other times of the day. Blood CAPILLARY BLOOD / Unknown 06/15/2024 1:05 AM EST 06/15/2024 1:05 AM EST Bobby Loja MD POINT OF CARE TEST O RDERABLES Performing Organization Address [facility] Co de Phone Number [facility] [place] [address] * POC, GLUCOSE (06/15/2024 12:16 AM EST) Glucometer, POC 135 65 - 199 mg/dL 06/15/2024 12:16 AM EST [facility] Comment:Supplemental ranges: <140 mg/dL before meals <180 mg/dL all other times of the day. Blood CAPILLARY BLOOD / Unknown 06/15/2024 12:16 AM EST 06/15/2024 12:16 AM EST Bobby Loja MD POINT OF CARE TEST O RDBECKIE Performing Organization Address [facility]/ZIP Co de Phone Number [facility] [place] [address] * Potassium (06/14/2024 11:28 PM EST) Potassium 4.1 3.5 - 5.0 mMol/L 06/14/2024 11:54 PM EST [facility] Blood VENOUS BLOOD SPECIMEN / Unknown Venipuncture / Unknown 06/14/2024 11:28 PM EST 06/14/2024 11:34 PM EST Bobby Loja MD CHEMISTRY ORDERABLES [facility] [place] [address] * POC, GLUCOSE (06/14/2024 10:58 PM EST) Glucometer, POC 126 65 - 199 mg/dL 06/14/2024 10:59 PM EST [facility] Comment:Supplemental ranges: <140 mg/dL before meals <180 mg/dL all other times of the day. Blood CAPILLARY BLOOD / Unknown 06/14/2024 10:58 PM EST 06/14/2024 10:59 PM EST Bobby Loja MD POINT OF CARE TEST O NIKA Performing Organization Address [facility] de Phone Number [facility] [place] [address] * POC, GLUCOSE (06/14/2024 9:55 PM EST) Glucometer, POC 152 65 - 199 mg/dL 06/14/2024 9:56 PM EST [facility] Comment:Supplemental ranges: <140 mg/dL before meals <180 mg/dL all other times of the day. Blood CAPILLARY BLOOD / Unknown 06/14/2024 9:55 PM EST 06/14/2024 9:56 PM EST Bobby Loja MD POINT OF CARE TEST O NIKA Performing Organization Address City/[facility] Co de Phone Number [facility] [place] [address] * POC, GLUCOSE (06/14/2024 8:54 PM EST) Glucometer, POC 151 65 - 199 mg/dL 06/14/2024 8:54 PM EST [facility] Comment:Supplemental ranges: <140 mg/dL before meals <180 mg/dL all other times of the day. Blood CAPILLARY BLOOD / Unknown 06/14/2024 8:54 PM EST 06/14/2024 8:54 PM EST Bobby Loja MD POINT OF CARE TEST O RDBECKIE Performing Organization Address City/[facility]/ZIP Co de Phone Number [facility] [place] [address] * POC, GLUCOSE (06/14/2024 7:51 PM EST) Glucometer, POC 169 65 - 199 mg/dL 06/14/2024 7:52 PM EST [facility] Comment:Supplemental ranges: <140 mg/dL before meals <180 mg/dL all other times of the day. Blood CAPILLARY BLOOD / Unknown 06/14/2024 7:51 PM EST 06/14/2024 7:52 PM EST Bobby Loja MD POINT OF CARE TEST O NIKA Performing Organization Address [facility] Co de Phone Number [facility] [place] [address] * POC, GLUCOSE (06/14/2024 6:49 PM EST) Glucometer, POC 194 65 - 199 mg/dL 06/14/2024 6:50 PM EST [facility] Comment:Supplemental ranges: <140 mg/dL before meals <180 mg/dL all other times of the day. Blood CAPILLARY BLOOD / Unknown 06/14/2024 6:49 PM EST 06/14/2024 6:50 PM EST Bobby Loja MD POINT OF CARE TEST O NIKA Performing Organization Address City/[facility]/ZIP Co de Phone Number [facility] [place] [address] * (ABNORMAL) Hemoglobin (06/14/2024 6:19 PM EST) Hemoglobin 13.1(L) 13.7 - 16.5 g/dL 06/14/2024 7:08 PM EST [facility] Blood VENOUS BLOOD SPECIMEN / Unknown Venipuncture / Unknown 06/14/2024 6:19 PM EST 06/14/2024 6:28 PM EST Bobby Loja MD HEMATOLOGY ORDERABLE S Performing Organization Address [facility]/ZIP Co de Phone Number [facility] [place] [address] * Potassium (06/14/2024 6:19 PM EST) Pathologist [facility] Potassium 3.9 3.5 - 5.0 mMol/L 06/14/2024 6:52 PM EST [facility] Blood VENOUS BLOOD SPECIMEN / Unknown Venipuncture / Unknown 06/14/2024 6:19 PM EST 06/14/2024 6:28 PM EST Bobby Loja MD CHEMISTRY ORDERABLES Performing Organization Address [facility] Co de Phone Number [facility] [place] [address] * (ABNORMAL) POC, GLUCOSE (06/14/2024 6:03 PM EST) [facility] Glucometer, POC 201(H) 65 - 199 mg/dL 06/14/2024 6:03 PM EST [facility] Comment:Supplemental ranges: <140 mg/dL before meals <180 mg/dL all other times of the day. Blood CAPILLARY BLOOD / Unknown 06/14/2024 6:03 PM EST 06/14/2024 6:03 PM EST Narrative Authorizing Provider Result Saranya Loja MD POINT OF CARE TEST O RDERABLES Performing Organization Address City/[facility]/ZIP Co de Phone Number [facility] [place] [address] * (ABNORMAL) Blood Gas, Arterial POC (06/14/2024 4:51 PM EST) [facility] pH, Arterial 7.32(L) 7.35 - 7.45 06/14/2024 4:52 PM EST [facility] PCO2, Arterial 46(H) 35 - 45 mmHg 06/14/2024 4:52 PM EST [facility] PO2, Arterial 85 85 - 104 mmHg 06/14/2024 4:52 PM [facility] Bicarbonate, Arterial 23.1 20.0 - 26.0 mmol/L 06/14/2024 4:52 PM [facility] Base Excess, Arterial -3.1(L) -3.0 - 3.0 mmol/L 06/14/2024 4:52 PM [facility] Hemoglobin, Arterial 14.3 13.7 - 16.5 g/dL 06/14/2024 4:52 PM [facility] Oxyhemoglobin, Arterial 94.7 94.0 - 97.0 % 06/14/2024 4:52 PM [facility] Carboxyhemoglobin , Arterial 0.6 % 06/14/2024 4:52 PM [facility] Comment: Nonsmokers: 0.5-1.5% COHB ?? Smokers: Variable ??but usually less than 10% ?? Toxic: 20-30% COHB ?? Lethal: Greater than 60% COHB Methemoglobin, Arterial 0.0 <=1.5 % 06/14/2024 4:52 PM [facility] Sodium, Arterial 138 135 - 145 mmol/L 06/14/2024 4:52 PM [facility] Potassium, Arterial 4.1 3.5 - 5.0 mmol/L 06/14/2024 4:52 PM [facility] Chloride, Arterial 106 98 - 107 mmol/L 06/14/2024 4:52 PM [facility] Lactate, Arterial 1.3 0.5 - 2.2 mmol/L 06/14/2024 4:52 PM [facility] Fraction of Inspired Oxygen 40 % 06/14/2024 4:52 PM [facility] PF Ratio 213 Ratio 06/14/2024 4:52 PM [facility] Comment:PF ratio calculated using the non-temperature corrected pO2 result. IONIZED CALCIUM, ARTERIAL 1.16 1.15 - 1.33 mmol/L 06/14/2024 4:52 PM EST [facility] Glucose, Arterial 192 65 - 199 mg/dL 06/14/2024 4:52 PM EST [facility] Comment:Glucose Concentratio n >=200 mg/dL plus symptoms is consistent with Diabetes Mellitus. Blood ARTERIAL BLOOD / Unknown 06/14/2024 4:51 PM EST 06/14/2024 4:52 PM EST Bobby Loja MD POINT OF CARE TEST O NIKA Performing Organization Address [facility] Co de Phone Number [facility] [place] [address] * POC, GLUCOSE (06/14/2024 4:00 PM EST) Glucometer, POC 184 65 - 199 mg/dL 06/14/2024 4:01 PM EST [facility] Comment:Supplemental ranges: <140 mg/dL before meals <180 mg/dL all other times of the day. Blood CAPILLARY BLOOD / Unknown 06/14/2024 4:00 PM EST 06/14/2024 4:01 PM EST Bobby Loja MD POINT OF CARE TEST O NIKA Performing Organization Address [facility] Co oh Phone Number [facility] [place] [address] * XR Chest One View (06/14/2024 3:05 PM EST) WORKSTATION ID [id number] RAD Anatomical Region Laterality Modality Chest N/A [...] who have questions please contact the health skin care therapist that requested your imaging first. ? Electronically signed by: Stuart Aponte MD, [facility] ??([phone]), at 06/14/2024 4:07 PM Narrative 06/14/2024 4:07 [...] patients who have questions please contactthe health skin care therapist that requested your imaging first. Electronically signed by: Stuart Aponte MD, [facility]([phone]), at 06/14/2024 4:07 PM Bobby Loja MD IMG DX ORDERABLES * (ABNORMAL) Blood Gas, Arterial POC (06/14/2024 2:52 PM EST) pH, Arterial 7.28(LLL) 7.35 - 7.45 06/14/2024 2:53 PM [facility] PCO2, Arterial 50(H) 35 - 45 mmHg 06/14/2024 2:53 PM [facility] PO2, Arterial 510(H) 85 - 104 mmHg 06/14/2024 2:53 PM [facility] Bicarbonate, Arterial 22.8 20.0 - 26.0 mmol/L 06/14/2024 2:53 PM [facility] Base Excess, Arterial -4.0(L) -3.0 - 3.0 mmol/L 06/14/2024 2:53 PM [facility] Hemoglobin, Arterial 13.8 13.7 - 16.5 g/dL 06/14/2024 2:53 PM [facility] Oxyhemoglobin, Arterial 99.3(H) 94.0 - 97.0 % 06/14/2024 2:53 PM [facility] Carboxyhemoglobin , Arterial 0.6 % 06/14/2024 2:53 PM [facility] Comment: Nonsmokers: 0.5-1.5% COHB ?? Smokers: Variable ??but usually less than 10% ?? Toxic: 20-30% COHB ?? Lethal: Greater than 60% COHB Methemoglobin, Arterial 0.1 <=1.5 % 06/14/2024 2:53 PM EST [facility] Sodium, Arterial 138 135 - 145 mmol/L 06/14/2024 2:53 PM [facility] Potassium, Arterial 4.2 3.5 - 5.0 mmol/L 06/14/2024 2:53 PM [facility] Chloride, Arterial 106 98 - 107 mmol/L 06/14/2024 2:53 PM [facility] Lactate, Arterial 1.1 0.5 - 2.2 mmol/L 06/14/2024 2:53 PM [facility] Fraction of Inspired Oxygen 100 % 06/14/2024 2:53 PM [facility] PF Ratio 510 Ratio 06/14/2024 2:53 PM [facility] Comment:PF ratio calculated using the non-temperature corrected pO2 result. IONIZED CALCIUM, ARTERIAL 1.15 1.15 - 1.33 mmol/L 06/14/2024 2:53 PM [facility] Glucose, Arterial 169 65 - 199 mg/dL 06/14/2024 2:53 PM [facility] Comment:Glucose Concentratio n >=200 mg/dL plus symptoms is consistent with Diabetes Mellitus. Blood ARTERIAL BLOOD / Unknown 06/14/2024 2:52 PM EST 06/14/2024 2:53 PM EST Bobby Ljoa MD POINT OF CARE TEST O RDERABLES [facility] [place] [address] * EKG 12 Lead (06/14/2024 2:46 PM EST) Ventricular rate 80 BPM MUSE SYSTEM Atrial Rate 80 BPM MUSE SYSTEM P-R Interval 120 ms MUSE SYSTEM QRS Duration 108 ms MUSE SYSTEM Q-T Interval 454 ms MUSE SYSTEM QTC Calculated (Bezet) 523 ms MUSE SYSTEM Calculated P [place] 70 degrees MUSE SYSTEM Calculated R [place] 56 degrees MUSE SYSTEM Calculated T [place] 50 degrees MUSE SYSTEM INTERPRETATION AV dual-paced rhythm Abnormal ECG When compared with ECG of 03-JUN-2024 01:45, Vent. rate has increased BY ??17 BPM Confirmed by MD Marisol, Shaheen ([id number]) on 06/15/2024 1:57:23 PM MUSE SYSTEM 06/14/2024 2:46 PM EST 06/15/2024 1:57 PM EST Bobby Loja MD ECG ORDERABLES MUSE SYSTEM * Prepare RBC (06/14/2024 2:27 PM EST) Status Information Returned [facility] Product Identification RBC [facility] Unit [facility] [id number] [facility] Product [facility] F5681B83 [facility] Unit Blood Type OPOS [facility] Specimen Expiration Date [facility] Volulme 350 [facility] Issue [facility] / Time [facility] Status Information Returned [facility] Product Identification RBC [facility] Unit Number [id number] [facility] Product [facility] A6056E22 [facility] Unit Blood Type OPOS [facility] Specimen Expiration Date [facility] Volulme 350 [facility] Issue Date / Time [facility] Blood 06/14/2024 6:2 5 AM EST Haja Bynres MD BLOOD BANK PRODUCT O RDERABLES [facility] [place] [address] * (ABNORMAL) Cooximetry, POC (06/14/2024 1:52 PM EST) pO2, Coox 58 mmHg 06/14/2024 1:55 PM EST [facility] Hemoglobin, Coox 12.6(L) 13.7 - 16.5 g/dL 06/14/2024 1:55 PM EST [facility] Oxyhemoglobin, Coox 85.5 % 06/14/2024 1:55 PM [facility] Carboxyhemoglo bin, Coox 0.3 % 06/14/2024 1:55 PM [facility] Comment: Nonsmokers: 0.5-1.5% COHB ?? Smokers: Variable ??but usually less than 10% ?? Toxic: 20-30% COHB ?? Lethal: Greater than 60% COHB Methemoglobin, Coox 0.6 <=1.5 % 06/14/2024 1:55 PM [facility] Blood (Mixed Venous) 06/14/2024 1:52 PM EST 06/14/2024 1:55 PM EST Haja Byrnes MD POINT OF CARE TEST O RDERABLES Performing Organization Address City/State/[facility] Co de Phone Number [facility] [place] [address] * (ABNORMAL) Blood Gas, Arterial POC (06/14/2024 12:47 PM EST) pH, Arterial 7.33(L) 7.35 - 7.45 06/14/2024 12:48 PM [facility] PCO2, Arterial 46(H) 35 - 45 mmHg 06/14/2024 12:48 PM [facility] PO2, Arterial 358(H) 85 - 104 mmHg 06/14/2024 12:48 PM [facility] Bicarbonate, Arterial 23.8 20.0 - 26.0 mmol/L 06/14/2024 12:48 PM [facility] Base Excess, Arterial -2.1 -3.0 - 3.0 mmol/L 06/14/2024 12:48 PM [facility] Hemoglobin, Arterial 11.7(L) 13.7 - 16.5 g/dL 06/14/2024 12:48 PM [facility] Oxyhemoglobin, Arterial 98.7(H) 94.0 - 97.0 % 06/14/2024 12:48 PM EST [facility] Carboxyhemoglobin , Arterial 0.3 % 06/14/2024 12:48 PM [facility] Comment: Nonsmokers: 0.5-1.5% COHB ?? Smokers: Variable ??but usually less than 10% ?? Toxic: 20-30% COHB ?? Lethal: Greater than 60% COHB Methemoglobin, Arterial 0.5 <=1.5 % 06/14/2024 12:48 PM EST [facility] Sodium, Arterial 135 135 - 145 mmol/L 06/14/2024 12:48 PM [facility] Potassium, Arterial 5.0 3.5 - 5.0 mmol/L 06/14/2024 12:48 PM [facility] Chloride, Arterial 106 98 - 107 mmol/L 06/14/2024 12:48 PM [facility] Lactate, Arterial 1.4 0.5 - 2.2 mmol/L 06/14/2024 12:48 PM [facility] IONIZED CALCIUM, ARTERIAL 1.09(L) 1.15 - 1.33 mmol/L 06/14/2024 12:48 PM [facility] Glucose, Arterial 157 65 - 199 mg/dL 06/14/2024 12:48 PM EST [facility] Comment:Glucose Concentratio n >=200 mg/dL plus symptoms is consistent with Diabetes Mellitus. Blood ARTERIAL BLOOD / Unknown 06/14/2024 12:47 PM EST 06/14/2024 12:48 PM EST Haja Byrnes MD POINT OF CARE TEST O RDERABLES [facility] [place] [address] * (ABNORMAL) Cooximetry, POC (06/14/2024 12:42 PM EST) pO2, Coox 71 mmHg 06/14/2024 12:45 PM EST [facility] Hemoglobin, Coox 11.6(L) 13.7 - 16.5 g/dL 06/14/2024 12:45 PM EST [facility] Oxyhemoglobin, Coox 91.5 % 06/14/2024 12:45 PM EST [facility] Carboxyhemoglo bin, Coox 0.3 % 06/14/2024 12:45 PM EST [facility] Comment: Nonsmokers: 0.5-1.5% COHB ?? Smokers: Variable ??but usually less than 10% ?? Toxic: 20-30% COHB ?? Lethal: Greater than 60% COHB Methemoglobin, Coox 0.4 <=1.5 % 06/14/2024 12:45 PM EST [facility] Blood (Mixed Venous) 06/14/2024 12:42 PM EST 06/14/2024 12:45 PM EST Haja Byrnes MD POINT OF CARE TEST O RDERABLES [facility] [place] [address] * (ABNORMAL) Platelet count (06/14/2024 12:30 PM EST) Platelet 73(L) 145 - 357 x10(3)/mcL 06/14/2024 12:54 PM EST [facility] Blood ARTERIAL BLOOD / Unknown 06/14/2024 12:30 PM EST Comment:Pre-op diagnosis: CAD Bobby Loja MD HEMATOLOGY ORDERABLE S [facility] [place] [address] * (ABNORMAL) Hemoglobin and Hematocrit, blood (06/14/2024 [...] 12:42 PM EST Comment:Pre-op diagnosis: CAD Bobby oLja MD HEMATOLOGY ORDERABLE S Performing Organization Address [facility]/ZIP Co de Phone Number [facility] [place] [address] * APTT (06/14/2024 12:30 PM EST) Partial [...] MD HEMATOLOGY ORDERABLE S Performing Organization Address City/[facility]/ZIP Co de Phone Number [facility] [place] [address] * (ABNORMAL) Prothrombin Time (06/14/2024 12:30 PM [...] MD HEMATOLOGY ORDERABLE S Performing Organization Address [facility] Co de Phone Number [facility] [place] [address] * Fibrinogen (06/14/2024 12:30 PM EST) Fibrinogen 211 200 - 393 mg/dL 06/14/2024 12:57 PM EST [facility] Comment: A fibrinogen level >100 mg/dL is adequate for hemostasis in most patients without underlying bleeding disorders. Blood ARTERIAL BLOOD / Unknown 06/14/2024 12:30 PM EST 06/14/2024 12:42 PM EST Comment:Pre-op diagnosis: CAD Bobby Loja MD HEMATOLOGY ORDERABLE S Performing Organization Address [facility] de Phone Number [facility] [place] [address] * (ABNORMAL) Blood Gas, Arterial POC (06/14/2024 12:15 PM EST) pH, Arterial 7.38 7.35 - 7.45 06/14/2024 12:16 PM EST [facility] PCO2, Arterial 40 35 - 45 mmHg 06/14/2024 12:16 PM EST [facility] Bicarbonate, Arterial 22.9 20.0 - 26.0 mmol/L 06/14/2024 12:16 PM EST [facility] Base Excess, Arterial -2.3 -3.0 - 3.0 mmol/L 06/14/2024 12:16 PM EST [facility] Hemoglobin, Arterial 11.4(L) 13.7 - 16.5 g/dL 06/14/2024 12:16 PM [facility] Oxyhemoglobin, Arterial 98.8(H) 94.0 - 97.0 % 06/14/2024 12:16 PM [facility] Carboxyhemoglobin , Arterial 0.3 % 06/14/2024 12:16 PM [facility] Comment: Nonsmokers: 0.5-1.5% COHB ?? Smokers: Variable ??but usually less than 10% ?? Toxic: 20-30% COHB ?? Lethal: Greater than 60% COHB Methemoglobin, Arterial 0.6 <=1.5 % 06/14/2024 12:16 PM [facility] Sodium, Arterial 134(L) 135 - 145 mmol/L 06/14/2024 12:16 PM [facility] Potassium, Arterial 5.4(H) 3.5 - 5.0 mmol/L 06/14/2024 12:16 PM [facility] Chloride, Arterial 105 98 - 107 mmol/L 06/14/2024 12:16 PM [facility] Lactate, Arterial 1.3 0.5 - 2.2 mmol/L 06/14/2024 12:16 PM [facility] IONIZED CALCIUM, ARTERIAL 1.08(L) 1.15 - 1.33 mmol/L 06/14/2024 12:16 PM [facility] Glucose, Arterial 161 65 - 199 mg/dL 06/14/2024 12:16 PM [facility] Comment:Glucose Concentratio n >=200 mg/dL plus symptoms is consistent with Diabetes Mellitus. Blood ARTERIAL BLOOD / Unknown 06/14/2024 12:15 PM EST 06/14/2024 12:16 PM EST Haja Byrnes MD POINT OF CARE TEST O RDERABLES [facility] [place] [address] * (ABNORMAL) Blood Gas, Arterial POC (06/14/2024 11:51 AM [facility]) pH, Arterial 7.40 7.35 - 7.45 06/14/2024 11:52 AM [facility] PCO2, Arterial 41 35 - 45 mmHg 06/14/2024 11:52 AM [facility] PO2, Arterial 332(H) 85 - 104 mmHg 06/14/2024 11:52 AM [facility] Bicarbonate, Arterial 24.7 20.0 - 26.0 mmol/L 06/14/2024 11:52 AM [facility] Base Excess, Arterial -0.1 -3.0 - 3.0 mmol/L 06/14/2024 11:52 AM [facility] Hemoglobin, Arterial 11.1(L) 13.7 - 16.5 g/dL 06/14/2024 11:52 AM [facility] Oxyhemoglobin, Arterial 98.7(H) 94.0 - 97.0 % 06/14/2024 11:52 AM [facility] Carboxyhemoglobin , Arterial 0.3 % 06/14/2024 11:52 AM [facility] Comment: Nonsmokers: 0.5-1.5% COHB ?? Smokers: Variable ??but usually less than 10% ?? Toxic: 20-30% COHB ?? Lethal: Greater than 60% COHB Methemoglobin, Arterial 0.4 <=1.5 % 06/14/2024 11:52 AM [facility] Sodium, Arterial 135 135 - 145 mmol/L 06/14/2024 11:52 AM [facility] Potassium, Arterial 5.7(H) 3.5 - 5.0 mmol/L 06/14/2024 11:52 AM [facility] Chloride, Arterial 105 98 - 107 mmol/L 06/14/2024 11:52 AM [facility] Lactate, Arterial 1.2 0.5 - 2.2 mmol/L 06/14/2024 11:52 AM [facility] IONIZED CALCIUM, ARTERIAL 1.10(L) 1.15 - 1.33 mmol/L 06/14/2024 11:52 AM [facility] Glucose, Arterial 148 65 - 199 mg/dL 06/14/2024 11:52 AM [facility] Comment:Glucose Concentratio n >=200 mg/dL plus symptoms is consistent with Diabetes Mellitus. Blood ARTERIAL BLOOD / Unknown 06/14/2024 11:51 AM EST 06/14/2024 11:52 AM EST Haja Byrnes MD POINT OF CARE TEST O RDERABLES [facility] [place] [address] * (ABNORMAL) Blood Gas, Arterial POC (06/14/2024 11:27 AM EST) pH, Arterial 7.38 7.35 - 7.45 06/14/2024 11:28 AM [facility] PCO2, Arterial 37 35 - 45 mmHg 06/14/2024 11:28 AM [facility] PO2, Arterial 348(H) 85 - 104 mmHg 06/14/2024 11:28 AM [facility] Bicarbonate, Arterial 21.1 20.0 - 26.0 mmol/L 06/14/2024 11:28 AM [facility] Base Excess, Arterial -4.1(L) -3.0 - 3.0 mmol/L 06/14/2024 11:28 AM [facility] Hemoglobin, Arterial 11.0(L) 13.7 - 16.5 g/dL 06/14/2024 11:28 AM [facility] Oxyhemoglobin, Arterial 98.7(H) 94.0 - 97.0 % 06/14/2024 11:28 AM [facility] Carboxyhemoglobin , Arterial 0.3 % 06/14/2024 11:28 AM [facility] Comment: Nonsmokers: 0.5-1.5% COHB ?? Smokers: Variable ??but usually less than 10% ?? Toxic: 20-30% COHB ?? Lethal: Greater than 60% COHB Methemoglobin, Arterial 0.4 <=1.5 % 06/14/2024 11:28 AM [facility] Sodium, Arterial 132(L) 135 - 145 mmol/L 06/14/2024 11:28 AM [facility] Potassium, Arterial 5.8(H) 3.5 - 5.0 mmol/L 06/14/2024 11:28 AM [facility] Chloride, Arterial 105 98 - 107 mmol/L 06/14/2024 11:28 AM [facility] Lactate, Arterial 1.1 0.5 - 2.2 mmol/L 06/14/2024 11:28 AM [facility] IONIZED CALCIUM, ARTERIAL 1.03(L) 1.15 - 1.33 mmol/L 06/14/2024 11:28 AM [facility] Glucose, Arterial 147 65 - 199 mg/dL 06/14/2024 11:28 AM [facility] Comment:Glucose Concentratio n >=200 mg/dL plus symptoms is consistent with Diabetes Mellitus. Blood ARTERIAL BLOOD / Unknown 06/14/2024 11:27 AM EST 06/14/2024 11:28 AM EST Haja Byrnes MD POINT OF CARE TEST O RDERABLES Performing Organization Address City/State/[facility] Co de Phone Number [facility] [place] [address] * (ABNORMAL) Scan, Peripheral Blood (06/14/2024 11:23 AM EST) RBC Morphology Abnormal 06/14/2024 11:59 AM [facility] Platelet Estimate Decreased(A) Normal 06/14/2024 11:59 AM [facility] Aretha cells 1-5 /HPF 06/14/2024 11:59 AM [facility] Blood ARTERIAL BLOOD / Unknown 06/14/2024 11:23 AM EST 06/14/2024 11:27 AM EST Bobby Loja MD HEMATOLOGY ORDERABLE S [facility] [place] [address] * (ABNORMAL) Platelet count (06/14/2024 11:23 AM EST) Platelet 86(L) 145 - 357 x10(3)/mcL 06/14/2024 11:59 AM EST [facility] Blood ARTERIAL BLOOD / Unknown 06/14/2024 11:23 AM EST Comment:Pre-op diagnosis: CAD Bobby Loja MD HEMATOLOGY ORDERABLE S Performing Organization Address [facility] Co de Phone Number [facility] [place] [address] * (ABNORMAL) Hemoglobin and Hematocrit, blood (06/14/2024 11:23 AM EST) Hemoglobin 9.8(L) 13.7 - 16.5 g/dL 06/14/2024 11:59 AM EST [facility] Comment:This result has been called to Danielle López by Satya Page on 06/14/2024 11:58:33. Hematocrit 30.5(L) 40.5 - 48.5 % 06/14/2024 11:59 AM EST [facility] Comment:This result has been called to Danielle López by Satya Page on 06/14/2024 11:58:40, and has been read back. Blood ARTERIAL BLOOD / Unknown 06/14/2024 11:23 AM EST 06/14/2024 11:27 AM EST Comment:Pre-op diagnosis: CAD Bobby Loja MD HEMATOLOGY ORDERABLE S [facility] [place] [address] * (ABNORMAL) Blood Gas, Arterial POC (06/14/2024 10:58 AM [facility]) pH, Arterial 7.38 7.35 - 7.45 06/14/2024 10:59 AM [facility] PCO2, Arterial 43 35 - 45 mmHg 06/14/2024 10:59 AM [facility] PO2, Arterial 401(H) 85 - 104 mmHg 06/14/2024 10:59 AM [facility] Bicarbonate, Arterial 24.8 20.0 - 26.0 mmol/L 06/14/2024 10:59 AM [facility] Base Excess, Arterial -0.5 -3.0 - 3.0 mmol/L 06/14/2024 10:59 AM [facility] Hemoglobin, Arterial 11.9(L) 13.7 - 16.5 g/dL 06/14/2024 10:59 AM [facility] Oxyhemoglobin, Arterial 99.0(H) 94.0 - 97.0 % 06/14/2024 10:59 AM [facility] Carboxyhemoglobin , Arterial 0.3 % 06/14/2024 10:59 AM [facility] Comment: Nonsmokers: 0.5-1.5% COHB ?? Smokers: Variable ??but usually less than 10% ?? Toxic: 20-30% COHB ?? Lethal: Greater than 60% COHB Methemoglobin, Arterial 0.3 <=1.5 % 06/14/2024 10:59 AM [facility] Sodium, Arterial 128(L) 135 - 145 mmol/L 06/14/2024 10:59 AM [facility] Potassium, Arterial 6.6(HHH) 3.5 - 5.0 mmol/L 06/14/2024 10:59 AM [facility] Chloride, Arterial 99 98 - 107 mmol/L 06/14/2024 10:59 AM [facility] Lactate, Arterial 1.3 0.5 - 2.2 mmol/L 06/14/2024 10:59 AM [facility] IONIZED CALCIUM, ARTERIAL 1.00(L) 1.15 - 1.33 mmol/L 06/14/2024 10:59 AM [facility] Glucose, Arterial 155 65 - 199 mg/dL 06/14/2024 10:59 AM [facility] Comment:Glucose Concentratio n >=200 mg/dL plus symptoms is consistent with Diabetes Mellitus. Blood ARTERIAL BLOOD / Unknown 06/14/2024 10:58 AM EST 06/14/2024 10:59 AM EST Haja Byrnes MD POINT OF CARE TEST O RDERABLES [facility] [place] [address] * (ABNORMAL) Blood Gas, Arterial POC (06/14/2024 10:26 AM EST) pH, Arterial 7.29(LLL) 7.35 - 7.45 06/14/2024 10:27 AM [facility] PCO2, Arterial 43 35 - 45 mmHg 06/14/2024 10:27 AM [facility] PO2, Arterial 369(H) 85 - 104 mmHg 06/14/2024 10:27 AM [facility] Bicarbonate, Arterial 19.9(L) 20.0 - 26.0 mmol/L 06/14/2024 10:27 AM [facility] Base Excess, Arterial -6.7(L) -3.0 - 3.0 mmol/L 06/14/2024 10:27 AM [facility] Hemoglobin, Arterial 12.6(L) 13.7 - 16.5 g/dL 06/14/2024 10:27 AM [facility] Oxyhemoglobin, Arterial 99.1(H) 94.0 - 97.0 % 06/14/2024 10:27 AM [facility] Carboxyhemoglobin , Arterial 0.1 % 06/14/2024 10:27 AM [facility] Comment: Nonsmokers: 0.5-1.5% COHB ?? Smokers: Variable ??but usually less than 10% ?? Toxic: 20-30% COHB ?? Lethal: Greater than 60% COHB Methemoglobin, Arterial 0.4 <=1.5 % 06/14/2024 10:27 AM [facility] Sodium, Arterial 129(L) 135 - 145 mmol/L 06/14/2024 10:27 AM [facility] Potassium, Arterial 5.0 3.5 - 5.0 mmol/L 06/14/2024 10:27 AM [facility] Chloride, Arterial 99 98 - 107 mmol/L 06/14/2024 10:27 AM [facility] Lactate, Arterial 0.9 0.5 - 2.2 mmol/L 06/14/2024 10:27 AM [facility] IONIZED CALCIUM, ARTERIAL 1.05(L) 1.15 - 1.33 mmol/L 06/14/2024 10:27 AM [facility] Glucose, Arterial 149 65 - 199 mg/dL 06/14/2024 10:27 AM [facility] Comment:Glucose Concentratio n >=200 mg/dL plus symptoms is consistent with Diabetes Mellitus. Blood ARTERIAL BLOOD / Unknown 06/14/2024 10:26 AM EST 06/14/2024 10:27 AM EST Haja Byrnes MD POINT OF CARE TEST O RDERABLES [facility] [place] [address] * (ABNORMAL) Blood Gas, Arterial POC (06/14/2024 10:25 AM EST) pH, Arterial 7.26(LLL) 7.35 - 7.45 06/14/2024 10:26 AM [facility] PCO2, Arterial 48(H) 35 - 45 mmHg 06/14/2024 10:26 AM [facility] Bicarbonate, Arterial 21.2 20.0 - 26.0 mmol/L 06/14/2024 10:26 AM [facility] Base Excess, Arterial -5.8(L) -3.0 - 3.0 mmol/L 06/14/2024 10:26 AM [facility] Hemoglobin, Arterial 12.5(L) 13.7 - 16.5 g/dL 06/14/2024 10:26 AM [facility] Oxyhemoglobin, Arterial 82.3(L) 94.0 - 97.0 % 06/14/2024 10:26 AM [facility] Carboxyhemoglobin , Arterial 0.5 % 06/14/2024 10:26 AM [facility] Comment: Nonsmokers: 0.5-1.5% COHB ?? Smokers: Variable ??but usually less than 10% ?? Toxic: 20-30% COHB ?? Lethal: Greater than 60% COHB Methemoglobin, Arterial 0.5 <=1.5 % 06/14/2024 10:26 AM [facility] Sodium, Arterial 131(L) 135 - 145 mmol/L 06/14/2024 10:26 AM [facility] Potassium, Arterial 4.6 3.5 - 5.0 mmol/L 06/14/2024 10:26 AM [facility] Chloride, Arterial 103 98 - 107 mmol/L 06/14/2024 10:26 AM [facility] Lactate, Arterial 0.8 0.5 - 2.2 mmol/L 06/14/2024 10:26 AM [facility] IONIZED CALCIUM, ARTERIAL 0.91(LLL) 1.15 - 1.33 mmol/L 06/14/2024 10:26 AM [facility] Glucose, Arterial 148 65 - 199 mg/dL 06/14/2024 10:26 AM [facility] Comment:Glucose Concentratio n >=200 mg/dL plus symptoms is consistent with Diabetes Mellitus. Blood ARTERIAL BLOOD / Unknown 06/14/2024 10:25 AM EST 06/14/2024 10:26 AM EST Haja Byrnes MD POINT OF CARE TEST O RDERABLES [facility] [place] [address] * Surgical Pathology (06/14/2024 9:53 AM EST) Case Report Surgical Pathology Report ? Case: [id number] ? Authorizing Provider: ??Bobby Loja MD ? Collected: ? 06/14/2024 0953 ? Ordering Location: ? Main Operating Room [facility] ?? Received: ?06/14/2024 1413 ? [facility] ? Hospital ? Pathologist: ? Sandra Salas MD ? Specimens: ?? A) - Soft Tissue Mass, mediastinal mass ? B) - Heart, Atrial Appendage, Left ? 06/18/2024 10:18 AM [facility] Final Diagnosis A. Soft Tissue Mass, Mediastinal Mass, Excision: - Atrophic thymic tissue B. Heart, Atrial Appendage, Left, Excision: - Mild myocyte hypertrophy 06/18/2024 10:18 AM [facility] Clinical Information A. Soft Tissue Mass, mediastinal mass Soft tissue mass Mediastinal mass B. Heart, Atrial Appendage, Left, *Other - as specified in Clinical Information MARIALUISA 06/18/2024 10:18 AM [facility] Gross Description A. Soft Tissue Mass, mediastinal mass. A - Labeled/Fixative : Mediastinal mass, fresh. Quantity/Size: Single, 7.2 x 5.3 x 1.2 cm. Tissue Description: Unoriented, intact portion of soft, rodriguez-yellow, lobulated tissue. The cut surface is homogenously pale-rodriguez, yellow and lobulated. No lesions or nodules are identified. Inking: External surface inked black Sections/Process ing: Noise Tester sections in 4 cassettes labeled A1-A4. cmk B. Heart, Atrial Appendage, Left, . B - Labeled/Fixative : Heart, atrial appendage, left, fresh. Quantity/Size: Single, 3.3 x 1.5 x 0.8 cm. Tissue Description: Portion of heart tissue consisting of rodriguez-white, semitranslucent, smooth endocardium with rodriguez-brown muscular myocardium and thin translucent epicardium with adherent adipose tissue. No areas of discoloration identified. Sections/Process ing: Noise Tester sections in 1 cassette labeled B1. cmk 06/18/2024 10:18 AM [facility] Result Note Routine 06/18/2024 10:18 AM [facility] Tissue SOFT TISSUE MASS / Unknown 06/14/2024 9:53 AM EST 06/14/2024 2:13 PM EST Comment:Mediastinal mass Tissue specimen (specimen) LEFT ATRIAL APPENDAGE ABSENT / Unknown 06/14/2024 10:54 AM EST 06/14/2024 2:13 PM EST Comment:MARIALUISA Bobby Loja MD PATHOLOGY/CYTOLOGY O RDERABLES [facility] [place] [address] * Cooximetry, POC (06/14/2024 9:00 AM EST) pO2, Coox 57 mmHg 06/14/2024 9:04 AM [facility] PO2 Corrected, COOX 50 mmHg 06/14/2024 9:04 AM [facility] Hemoglobin, Coox 14.3 13.7 - 16.5 g/dL 06/14/2024 9:04 AM [facility] Oxyhemoglobin, Coox 86.2 % 06/14/2024 9:04 AM [facility] Carboxyhemoglobi n, Coox 0.3 % 06/14/2024 9:04 AM [facility] Comment: Nonsmokers: 0.5-1.5% COHB ?? Smokers: Variable ??but usually less than 10% ?? Toxic: 20-30% COHB ?? Lethal: Greater than 60% COHB Methemoglobin, Coox 0.3 <=1.5 % 06/14/2024 9:04 AM [facility] Temperature Coox 35.2 C 06/14/20 24 9:04 AM [facility] Blood (Mixed Venous) 06/14/2024 9:00 AM EST 06/14/2024 9:04 AM EST Haja Byrnes MD POINT OF CARE TEST O RDERABLES [facility] [place] [address] * (ABNORMAL) Blood Gas, Arterial POC (06/14/2024 8:39 AM EST) pH, Arterial 7.37 7.35 - 7.45 06/14/2024 8:40 AM [facility] PCO2, Arterial 42 35 - 45 mmHg 06/14/2024 8:40 AM [facility] PO2, Arterial 341(H) 85 - 104 mmHg 06/14/2024 8:40 AM [facility] Bicarbonate, Arterial 23.7 20.0 - 26.0 mmol/L 06/14/2024 8:40 AM [facility] Base Excess, Arterial -1.6 -3.0 - 3.0 mmol/L 06/14/2024 8:40 AM [facility] Hemoglobin, Arterial 15.2 13.7 - 16.5 g/dL 06/14/2024 8:40 AM [facility] Oxyhemoglobin, Arterial 99.2(H) 94.0 - 97.0 % 06/14/2024 8:40 AM [facility] Carboxyhemoglobin , Arterial 0.1 % 06/14/2024 8:40 AM [facility] Comment: Nonsmokers: 0.5-1.5% COHB ?? Smokers: Variable ??but usually less than 10% ?? Toxic: 20-30% COHB ?? Lethal: Greater than 60% COHB Methemoglobin, Arterial 0.3 <=1.5 % 06/14/2024 8:40 AM [facility] Sodium, Arterial 136 135 - 145 mmol/L 06/14/2024 8:40 AM [facility] Potassium, Arterial 4.2 3.5 - 5.0 mmol/L 06/14/2024 8:40 AM EST [facility] Chloride, Arterial 102 98 - 107 mmol/L 06/14/2024 8:40 AM EST [facility] Lactate, Arterial 0.9 0.5 - 2.2 mmol/L 06/14/2024 8:40 AM EST [facility] IONIZED CALCIUM, ARTERIAL 1.17 1.15 - 1.33 mmol/L 06/14/2024 8:40 AM EST [facility] Glucose, Arterial 121 65 - 199 mg/dL 06/14/2024 8:40 AM EST [facility] Comment:Glucose Concentratio n >=200 mg/dL plus symptoms is consistent with Diabetes Mellitus. Blood ARTERIAL BLOOD / Unknown 06/14/2024 8:39 AM EST 06/14/2024 8:40 AM EST Haja Byrnes MD POINT OF CARE TEST O RDERABLES Performing Organization Address City/State/[facility] Co de Phone Number [facility] [place] [place] [address] * Transesophageal Echo/OR (06/14/2024 7:20 AM EST) Anatomical Region Laterality Modality Cardiac Other 06/14/2024 7:20 AM EST Narrative 06/14/2024 4:36 PM EST Version: 2 Study ID: [id number] [address] [place] [address] ?OR Transesophageal Echo Report Name: GEORGE MEHTA [...] of this mass after consultation with other single stroke preformer experts and the decision was made by [...] MD - 06/14/2024 Version: 2 Study ID: [id number] [address] [place] [id number] ORTransesophageal Echo Report Name: GEORGE MEHTA Study [...] of this mass after consultation with other single stroke preformer experts and thedecision was made by surgeon [...] - 199 mg/dL 06/14/2024 7:12 AM EST [facility] Comment:Supplemental ranges: <140 mg/dL before meals <180 mg/dL all other times of the day. Blood CAPILLARY BLOOD / Unknown 06/14/2024 7:11 AM EST 06/14/2024 7:12 AM EST Haja Byrnes MD POINT OF CARE TEST O RDERAPIETER Performing Organization Address City/[facility]/ZIP Co de Phone Number [facility] [place] [address] * POC, GLUCOSE (06/14/2024 4:30 AM EST) Glucometer, POC 85 65 - 199 mg/dL 06/14/2024 4:30 AM EST [facility] Comment:Supplemental ranges: <140 mg/dL before meals <180 mg/dL all other times of the day. Blood CAPILLARY BLOOD / Unknown 06/14/2024 4:30 AM EST 06/14/2024 4:30 AM EST Haja Byrnes MD POINT OF CARE TEST O RDBECKIE Performing Organization Address City/[facility]/ZIP Co de Phone Number [facility] [place] [address] * (ABNORMAL) Heparin (unfractionated) Level (06/14/2024 12:12 [...] EST Shahnaz Scanlon MD HEMATOLOGY ORDERABLE S [facility] [place] [address] * (ABNORMAL) CBC (with Diff) (06/14/2024 12:12 AM EST) White Blood Cell 10.51(H) 4.00 - 9.50 x10(3)/mc L 06/14/2024 12:38 AM EST [facility] Red Blood Cell 4.99 4.58 - 5.54 x10(6)/mc L 06/14/2024 12:38 AM EST [facility] Hemoglobin 14.9 13.7 - 16.5 g/dL 06/14/2024 12:38 AM EST [facility] Hematocrit 45.9 40.5 - 48.5 % 06/14/2024 12:38 AM [facility] Mean Cell Volume 92.0 82.9 - 93.1 fL 06/14/2024 12:38 AM [facility] Mean Cell Hemoglobin 29.9 27.5 - 32.1 pg 06/14/2024 12:38 AM [facility] Mean Cell Hemoglobin Concentration 32.5 32.0 - 35.7 g/dL 06/14/2024 12:38 AM [facility] Platelet 162 145 - 357 x10(3)/mc L 06/14/2024 12:38 AM [facility] Mean Platelet Volume 10.1 7.6 - 12.9 fL 06/14/2024 12:38 AM [facility] RDW Standard Deviation 46.9(H) 36.0 - 45.0 fL 06/14/2024 12:38 AM [facility] RDW coefficient of variation 13.8 11.4 - 13.8 % 06/14/2024 12:38 AM [facility] NRBC% auto 0.0 % 06/14/2024 12:38 AM [facility] NRBC Absolute <0.01 <0.01 x10(3)/mc L 06/14/2024 12:38 AM [facility] Neutrophil % 56.7 % 06/14/2024 12:38 AM [facility] Neutrophil Absolute (ANC) - Automated 5.96 1.70 - 6.10 x10(3)/mc L 06/14/2024 12:38 AM [facility] Lymph % 26.8 % 06/14/2024 12:38 AM [facility] Lymph Absolute 2.82 0.90 - 3.20 x10(3)/mc L 06/14/2024 12:38 AM [facility] Monocyte % 11.2 % 06/14/2024 12:38 AM [facility] Monocyte Absolute 1.18(H) 0.30 - 0.90 x10(3)/mc L 06/14/2024 12:38 AM EST [facility] Eos % 3.9 % 06/14/2024 12:38 AM [facility] Eos Absolute 0.41(H) 0.00 - 0.40 x10(3)/mc L 06/14/2024 12:38 AM EST [facility] Basophil % 0.8 % 06/14/2024 12:38 AM [facility] Baso Absolute 0.08 0.00 - 0.10 x10(3)/mc L 06/14/2024 12:38 AM [facility] Immature Gran % 0.6 % 12:38 AM [facility] Immature Gran Absolute 0.06(H) 0.00 - 0.04 x10(3)/mc L 06/14/2024 12:38 AM [facility] Blood VENOUS BLOOD SPECIMEN / Unknown Venipuncture / Unknown 06/14/2024 12:12 AM EST 06/14/2024 12:29 AM EST Shahnaz Scanlon MD HEMATOLOGY ORDERABLE S [facility] [place] [address] * Magnesium (06/14/2024 12:12 AM EST) Magnesium 0.74 0.69 - 1.07 mMol/L 06/14/2024 12:57 AM EST [facility] Blood VENOUS BLOOD SPECIMEN / Unknown Venipuncture / Unknown 06/14/2024 12:12 AM EST 06/14/2024 12:29 AM EST Shahnaz Scanlon MD CHEMISTRY ORDERABLES [facility] [place] [address] * (ABNORMAL) Basic Metabolic Panel (06/14/2024 12:12 AM EST) Glucose 97 65 - 199 mg/dL 06/14/2024 12:57 AM [facility] Comment:Glucose Concentratio n >=200 mg/dL plus symptoms is consistent with Diabetes Mellitus. Blood Urea Nitrogen 25(H) 10 - 20 mg/dL 06/14/2024 12:57 AM [facility] Creatinine 1.14 0.80 - 1.50 mg/dL 06/14/2024 12:57 AM [facility] Sodium 135 135 - 145 mMol/L 06/14/2024 12:57 AM [facility] Potassium 4.1 3.5 - 5.0 mMol/L 06/14/2024 12:57 AM [facility] Chloride 100 98 - 107 mMol/L 06/14/2024 12:57 AM [facility] Carbon Dioxide 25 22 - 31 mMol/L 06/14/2024 12:57 AM [facility] Anion Gap 10 5 - 15 mMol/L 06/14/2024 12:57 AM [facility] Calcium 9.5 8.5 - 10.5 mg/dL 06/14/2024 12:57 AM [facility] Est Glomerular Filtration Rate - Male 70 mL/min/1. 73 m?? 06/14/2024 12:57 AM [facility] Comment: This [...] Scanlon MD CHEMISTRY ORDERABLES Performing Organization Address [facility]/ZIP Co de Phone Number [facility] [place] [address] * Scan Doc: Implantable Devices (06/14/2024 12:00 AM EST) Narrative 06/14/2024 12:00 AM EST Ordered by an unspecified provider. Scanning Provider MEDIA MGR SCAN EXT O RDR/RSLT * POC, GLUCOSE (06/13/2024 11:12 PM EST) Glucometer, POC 104 65 - 199 mg/dL 06/13/2024 11:13 PM EST [facility] Comment:Supplemental ranges: <140 mg/dL before meals <180 mg/dL all other times of the day. Blood CAPILLARY BLOOD / Unknown 06/13/2024 11:12 PM EST 06/13/2024 11:13 PM EST Haja Byrnes MD POINT OF CARE TEST O NIKA Performing Organization Address [facility]/ZIP Co de Phone Number [facility] [place] [address] * (ABNORMAL) POC, GLUCOSE (06/13/2024 8:03 PM EST) Glucometer, POC 206(H) 65 - 199 mg/dL 06/13/2024 8:03 PM EST [facility] Comment:Supplemental ranges: <140 mg/dL before meals <180 mg/dL all other times of the day. Blood CAPILLARY BLOOD / Unknown 06/13/2024 8:03 PM EST 06/13/2024 8:03 PM EST Haja Byrnes MD POINT OF CARE TEST O NIKA Performing Organization Address City/[facility]/ZIP Co de Phone Number [facility] [place] [address] * Heparin (unfractionated) Level (06/13/2024 4:11 PM EST) Pathologist [facility] UF Heparin 0.76 IU/mL 06/13/2024 4:24 PM EST [facility] [...] EST Shahnaz Scanlon MD HEMATOLOGY ORDERABLE S [facility] [place] [address] * ABORH RECHECK (06/13/2024 4:11 PM EST) Pathologist [facility] ABORH Recheck O POSITIVE 06/13/2024 4:50 PM EST [facility] Blood VENOUS BLOOD SPECIMEN / Unknown Venipuncture / Unknown 06/13/2024 4:11 PM EST 06/13/2024 4:19 PM EST Haja Byrnes MD BLOOD BANK LAB ORDER [place]SE[place] Performing Organization Address City/[facility]/ZIP Co de Phone Number [facility] [place] [place] [address] * (ABNORMAL) POC, GLUCOSE (06/13/2024 4:09 PM EST) Glucometer, POC 216(H) 65 - 199 mg/dL 06/13/2024 4:10 PM EST [facility] Comment:Supplemental ranges: <140 mg/dL before meals <180 mg/dL all other times of the day. Blood CAPILLARY BLOOD / Unknown 06/13/2024 4:09 PM EST 06/13/2024 4:10 PM EST Haja Byrnes MD POINT OF CARE TEST O RDERABLES [facility] [place] [address] * Type and screen ([facility]CGP/RAFITA) (06/13/2024 11:53 AM EST) [facility] ABORH Type O POSITIVE 06/13/2024 1:16 PM EST [facility] PATIENT HISTORY Not Found 06/13/2024 1:16 PM EST [facility] Expires at [id number] on: 06/16/2024 06/13/2024 1:16 PM EST [facility] ANTIBODY SCREEN AUTOMATED Negative 06/13/2024 1:16 PM EST [facility] T&S only valid at [facility] 06/13/2024 1:16 PM EST [facility] Blood VENOUS BLOOD SPECIMEN / Unknown Venipuncture / Unknown 06/13/2024 11:53 AM EST 06/13/2024 11:56 AM EST Narrative [facility] - 06/13/2024 1:16 PM EST This Type and Screen result is only valid at the [facility] Haja Byrnes MD BLOOD BANK LAB ORDER [place] [facility] [place] [address] * POC, GLUCOSE (06/13/2024 11:50 AM EST) Glucometer, POC 178 65 - 199 mg/dL 06/13/2024 11:51 AM EST [facility] Comment:Supplemental ranges: <140 mg/dL before meals <180 mg/dL all other times of the day. Blood CAPILLARY BLOOD / Unknown 06/13/2024 11:50 AM EST 06/13/2024 11:51 AM EST Haja Byrnes MD POINT OF CARE TEST O RDERABLES [facility] [place] [address] * XR Chest One View (06/13/2024 10:35 AM EST) WORKSTATION ID [id number] RAD Anatomical Region Laterality Modality Chest N/A [...] who have questions please contact the health skin care therapist that requested your imaging first. ? Narrative [...] patients who have questions please contactthe health skin care therapist that requested your imaging first. Electronically signed by: Jyothi Simon MD, [facility]([phone]), at 06/13/2024 10:43 AM Haja Byrnes MD IMG DX ORDERABLES * CARDIAC CATHETERIZATION (06/13/2024 9:02 AM EST) Anatomical Region Laterality Modality Other Narrative 06/15/2024 9:07 AM EST ?[facility] ? Cardiac Catheterization/Intervention Report ? Patient Name: Tyson, George L. ? Procedure Date: 06/13/2024 ? A #: [id number] ? Primary Physician: Nuha Shen I ? Case #: [id number] ? File Name: [id number] ? Catheterization Order Number: [id number] ? [facility] ? Final Report [place], [place] ? Patient Name: ? George L. Tyson ? ID#: ?[id number] ? : ?1955 ? Procedure Date: ? June 13, 2024 ?Case #: ? [id number] ? Room: ? 6 ? Case Physician: [...] ?was designated as ASA Class IV. The [facility] clinical frailty scale is 5: ?Mildly [...] procedure was Urgent. The indication for ?the manager cardiac cath visit is ACS greater than 24 hrs [...] present for the entire procedure. ?Dr. Nuha hSen M.D. was present during the moderate sedation ?intraservice time as documented by the sedation nurse. ??Case time = 00:27. ?Dr. Nuha Shen M.D. performed the access site angiography, vascular ?ultrasound and IABP insertion in manager cardiac cath. ? Nuha Shen, M.D. ? Electronically Signed by: Nuha Shen, M.D. ? Report Finalized: 06/15/2024 ??08:59 ? Procedure Note Nuha Shen MD - 06/15/2024 [facility] Cardiac Catheterization/Intervention Report Patient Name: George Mehta Procedure Date: 06/13/2024 A #: [id number] Primary Physician: Nuha Shen I Case #: [id number] File Name: [id number] Catheterization Order Number: [id number] [facility] FinalReport [place], [place] Patient Name: George Mehta ID#:[id number] :1955 Procedure Date: June 13, 2024 Case [...] was designated as ASA Class IV. The [facility] clinical frailty scale is5: Mildly Frail. [...] diagnostic procedure was Urgent. The indicationfor the manager cardiac cath visit is ACS greater than 24 hrs [...] site angiography,vascular ultrasound and IABP insertion in manager cardiac cath. Nuha Shen M.D. Electronically Signed by: Nuha Shen M.D. Report Finalized: 06/15/2024 08:59 Nuha Rojo MD CARDIAC CATH ORDERA BLES * Potassium (06/13/2024 7:48 AM EST) Potassium 4.5 3.5 - 5.0 mMol/L 06/13/2024 8:28 AM EST [facility] Blood VENOUS BLOOD SPECIMEN / Unknown Venipuncture / Unknown 06/13/2024 7:48 AM EST 06/13/2024 7:55 AM EST Shahnaz Scanlon MD CHEMISTRY ORDERABLES Performing Organization Address City/State/[facility] Co de Phone Number [facility] [place] [address] * POC, GLUCOSE (06/13/2024 7:41 AM EST) Glucometer, POC 126 65 - 199 mg/dL 06/13/2024 7:41 AM EST [facility] Comment:Supplemental ranges: <140 mg/dL before meals <180 mg/dL all other times of the day. Blood CAPILLARY BLOOD / Unknown 06/13/2024 7:41 AM EST 06/13/2024 7:41 AM EST Ethel Carrillo MD POINT OF CARE TEST O NIKA Performing Organization Address [facility] Co de Phone Number [facility] [place] [address] * POC, GLUCOSE (06/13/2024 3:25 AM EST) Glucometer, POC 99 65 - 199 mg/dL 06/13/2024 3:25 AM EST [facility] Comment:Supplemental ranges: <140 mg/dL before meals <180 mg/dL all other times of the day. Blood CAPILLARY BLOOD / Unknown 06/13/2024 3:25 AM EST 06/13/2024 3:25 AM EST Ethel Carrillo MD POINT OF CARE TEST O NIKA Performing Organization Address [facility] de Phone Number [facility] [place] [address] * Heparin (unfractionated) Level (06/13/2024 2:26 AM EST) UF Heparin 0.60 IU/mL 06/13/2024 3:32 AM EST [facility] [...] EST Shahnaz Scanlon MD HEMATOLOGY ORDERABLE S [facility] [place] [address] * (ABNORMAL) CBC (with Diff) (06/13/2024 2:26 AM EST) White Blood Cell 9.98(H) 4.00 - 9.50 x10(3)/mc L 06/13/2024 2:41 AM [facility] Red Blood Cell 5.11 4.58 - 5.54 x10(6)/mc L 06/13/2024 2:41 AM [facility] Hemoglobin 15.3 13.7 - 16.5 g/dL 06/13/2024 2:41 AM [facility] Hematocrit 47.1 40.5 - 48.5 % 06/13/2024 2:41 AM [facility] Mean Cell Volume 92.2 82.9 - 93.1 fL 06/13/2024 2:41 AM [facility] Mean Cell Hemoglobin 29.9 27.5 - 32.1 pg 06/13/2024 2:41 AM [facility] Mean Cell Hemoglobin Concentration 32.5 32.0 - 35.7 g/dL 06/13/2024 2:41 AM [facility] Platelet 194 145 - 357 x10(3)/mc L 06/13/2024 2:41 AM [facility] Mean Platelet Volume 9.7 7.6 - 12.9 fL 06/13/2024 2:41 AM [facility] RDW Standard Deviation 47.5(H) 36.0 - 45.0 fL 06/13/2024 2:41 AM [facility] RDW coefficient of variation 13.8 11.4 - 13.8 % 06/13/2024 2:41 AM [facility] NRBC% auto 0.0 % 06/13/2024 2:41 AM [facility] NRBC Absolute <0.01 <0.01 x10(3)/mc L 06/13/2024 2:41 AM [facility] Neutrophil % 48.8 % 06/13/2024 2:41 AM [facility] Neutrophil Absolute (ANC) - Automated 4.87 1.70 - 6.10 x10(3)/mc L 06/13/2024 2:41 AM [facility] Lymph % 35.3 % 06/13/2024 2:41 AM [facility] Lymph Absolute 3.52(H) 0.90 - 3.20 x10(3)/mc L 06/13/2024 2:41 AM [facility] Monocyte % 10.1 % 06/13/2024 2:41 AM [facility] Monocyte Absolute 1.01(H) 0.30 - 0.90 x10(3)/mc L 06/13/2024 2:41 AM [facility] Eos % 4.4 % 06/13/2024 2:41 AM [facility] Eos Absolute 0.44(H) 0.00 - 0.40 x10(3)/mc L 06/13/2024 2:41 AM [facility] Basophil % 0.9 % 06/13/2024 2:41 AM [facility] Baso Absolute 0.09 0.00 - 0.10 x10(3)/mc L 06/13/2024 2:41 AM [facility] Immature Gran % 0.5 % 2:41 AM [facility] Immature Gran Absolute 0.05(H) 0.00 - 0.04 x10(3)/mc L 06/13/2024 2:41 AM [facility] Blood VENOUS BLOOD SPECIMEN / Unknown Venipuncture / Unknown 06/13/2024 2:26 AM EST 06/13/2024 2:32 AM EST Shahnaz Scanlon MD HEMATOLOGY ORDERABLE S [facility] [place] [address] * Magnesium (06/13/2024 2:26 AM EST) Magnesium 0.78 0.69 - 1.07 mMol/L 06/13/2024 2:58 AM EST [facility] Blood VENOUS BLOOD SPECIMEN / Unknown Venipuncture / Unknown 06/13/2024 2:26 AM EST 06/13/2024 2:31 AM EST Shahnaz Scanlon MD CHEMISTRY ORDERABLES Performing Organization Address City/[facility]/ZIP Co de Phone Number [facility] [place] [address] * (ABNORMAL) Basic Metabolic Panel (06/13/2024 2:26 AM EST) Glucose 121 65 - 199 mg/dL 06/13/2024 2:58 AM EST [facility] Comment:Glucose Concentratio n >=200 mg/dL plus symptoms is consistent with Diabetes Mellitus. Blood Urea Nitrogen 21(H) 10 - 20 mg/dL 06/13/2024 2:58 AM [facility] Creatinine 1.07 0.80 - 1.50 mg/dL 06/13/2024 2:58 AM EST [facility] Sodium 136 135 - 145 mMol/L 06/13/2024 2:58 AM [facility] Potassium 3.9 3.5 - 5.0 mMol/L 06/13/2024 2:58 AM [facility] Chloride 99 98 - 107 mMol/L 06/13/2024 2:58 AM [facility] Carbon Dioxide 27 22 - 31 mMol/L 06/13/2024 2:58 AM [facility] Anion Gap 10 5 - 15 mMol/L 06/13/2024 2:58 AM EST [facility] Calcium 9.7 8.5 - 10.5 mg/dL 06/13/2024 2:58 AM EST [facility] Est Glomerular Filtration Rate - Male 76 mL/min/1. 73 m?? 06/13/2024 2:58 AM EST [facility] [...] AM EST Shahnaz Scanlon MD CHEMISTRY ORDERABLES [facility] [place] [address] * POC, GLUCOSE (06/12/2024 11:53 PM EST) [facility] Signature Glucometer, POC 141 65 - 199 mg/dL 06/12/2024 11:54 PM EST [facility] Comment:Supplemental ranges: <140 mg/dL before meals <180 mg/dL all other times of the day. Blood CAPILLARY BLOOD / Unknown 06/12/2024 11:53 PM EST 06/12/2024 11:54 PM EST Ethel Carrillo MD POINT OF CARE TEST O RDERABLES [facility] [place] [address] * POC, GLUCOSE (06/12/2024 7:32 PM EST) Glucometer, POC 158 65 - 199 mg/dL 06/12/2024 7:32 PM EST [facility] Comment:Supplemental ranges: <140 mg/dL before meals <180 mg/dL all other times of the day. Blood CAPILLARY BLOOD / Unknown 06/12/2024 7:32 PM EST 06/12/2024 7:32 PM EST Ethel Carrillo MD POINT OF CARE TEST O RDERABLES Performing Organization Address City/[facility]/ZIP Co de Phone Number [facility] [place] [address] * POC, GLUCOSE (06/12/2024 3:41 PM EST) Glucometer, POC 113 65 - 199 mg/dL 06/12/2024 3:41 PM EST [facility] Comment:Supplemental ranges: <140 mg/dL before meals <180 mg/dL all other times of the day. Blood CAPILLARY BLOOD / Unknown 06/12/2024 3:41 PM EST 06/12/2024 3:41 PM EST Ethel Carrillo MD POINT OF CARE TEST O RDERABLES Performing Organization Address City/[facility]/ZIP Co de Phone Number [facility] [place] [address] * Potassium (06/12/2024 2:19 PM EST) Potassium 4.5 3.5 - 5.0 mMol/L 06/12/2024 2:45 PM EST [facility] Blood VENOUS BLOOD SPECIMEN / Unknown Venipuncture / Unknown 06/12/2024 2:19 PM EST 06/12/2024 2:23 PM EST Shahnaz Scanlon MD CHEMISTRY ORDERABLES Performing Organization Address City/[facility]/ZIP Co de Phone Number [facility] [place] [address] * (ABNORMAL) POC, GLUCOSE (06/12/2024 11:21 AM EST) Glucometer, POC 207(H) 65 - 199 mg/dL 06/12/2024 11:21 AM EST [facility] Comment:Supplemental ranges: <140 mg/dL before meals <180 mg/dL all other times of the day. Blood CAPILLARY BLOOD / Unknown 06/12/2024 11:21 AM EST 06/12/2024 11:22 AM EST Ethel Carrillo MD POINT OF CARE TEST O NIKA Performing Organization Address City/[facility]/ZIP Co de Phone Number [facility] [place] [address] * POC, GLUCOSE (06/12/2024 8:00 AM EST) Glucometer, POC 169 65 - 199 mg/dL 06/12/2024 8:01 AM EST [facility] Comment:Supplemental ranges: <140 mg/dL before meals <180 mg/dL all other times of the day. Blood CAPILLARY BLOOD / Unknown 06/12/2024 8:00 AM EST 06/12/2024 8:01 AM EST Ethel Carrillo MD POINT OF CARE TEST O NIKA [facility] [place] [address] * POC, GLUCOSE (06/12/2024 4:25 AM EST) Glucometer, POC 132 65 - 199 mg/dL 06/12/2024 4:26 AM EST [facility] Comment:Supplemental ranges: <140 mg/dL before meals <180 mg/dL all other times of the day. Blood CAPILLARY BLOOD / Unknown 06/12/2024 4:25 AM EST 06/12/2024 4:26 AM EST Ethel Carrillo MD POINT OF CARE TEST O RDERABLES Performing Organization Address [facility]/ZIP Co de Phone Number [facility] [place] [address] * Heparin (unfractionated) Level (06/12/2024 3:03 AM EST) UF Heparin 0.55 IU/mL 06/12/2024 3:44 AM EST [facility] [...] MD HEMATOLOGY ORDERABLE S Performing Organization Address [facility]/ZIP Co de Phone Number [facility] [place] [address] * (ABNORMAL) CBC (with Diff) (06/12/2024 3:03 AM EST) White Blood Cell 9.69(H) 4.00 - 9.50 x10(3)/mc L 06/12/2024 3:36 AM EST [facility] Red Blood Cell 5.05 4.58 - 5.54 x10(6)/mc L 06/12/2024 3:36 AM EST [facility] Hemoglobin 15.2 13.7 - 16.5 g/dL 06/12/2024 3:36 AM [facility] Hematocrit 46.6 40.5 - 48.5 % 06/12/2024 3:36 AM [facility] Mean Cell Volume 92.3 82.9 - 93.1 fL 06/12/2024 3:36 AM [facility] Mean Cell Hemoglobin 30.1 27.5 - 32.1 pg 06/12/2024 3:36 AM [facility] Mean Cell Hemoglobin Concentration 32.6 32.0 - 35.7 g/dL 06/12/2024 3:36 AM [facility] Platelet 194 145 - 357 x10(3)/mc L 06/12/2024 3:36 AM [facility] Mean Platelet Volume 10.1 7.6 - 12.9 fL 06/12/2024 3:36 AM [facility] RDW Standard Deviation 47.7(H) 36.0 - 45.0 fL 06/12/2024 3:36 AM [facility] RDW coefficient of variation 14.0(H) 11.4 - 13.8 % 06/12/2024 3:36 AM [facility] NRBC% auto 0.0 % 06/12/2024 3:36 AM [facility] NRBC Absolute <0.01 <0.01 x10(3)/mc L 06/12/2024 3:36 AM [facility] Neutrophil % 49.9 % 06/12/2024 3:36 AM [facility] Neutrophil Absolute (ANC) - Automated 4.82 1.70 - 6.10 x10(3)/mc L 06/12/2024 3:36 AM [facility] Lymph % 33.5 % 06/12/2024 3:36 AM [facility] Lymph Absolute 3.25(H) 0.90 - 3.20 x10(3)/mc L 06/12/2024 3:36 AM [facility] Monocyte % 11.1 % 06/12/2024 3:36 AM [facility] Monocyte Absolute 1.08(H) 0.30 - 0.90 x10(3)/mc L 06/12/2024 3:36 AM [facility] Eos % 4.1 % 06/12/2024 3:36 AM [facility] Eos Absolute 0.40 0.00 - 0.40 x10(3)/mc L 06/12/2024 3:36 AM [facility] Basophil % 0.8 % 06/12/2024 3:36 AM [facility] Baso Absolute 0.08 0.00 - 0.10 x10(3)/mc L 06/12/2024 3:36 AM [facility] Immature Gran % 0.6 % 3:36 AM [facility] Immature Gran Absolute 0.06(H) 0.00 - 0.04 x10(3)/mc L 06/12/2024 3:36 AM [facility] Blood VENOUS BLOOD SPECIMEN / Unknown Venipuncture / Unknown 06/12/2024 3:03 AM EST 06/12/2024 3:30 AM EST Shahnaz Scanlon MD HEMATOLOGY ORDERABLE S [facility] [place] [address] * Magnesium (06/12/2024 3:03 AM EST) Magnesium 0.79 0.69 - 1.07 mMol/L 06/12/2024 4:01 AM [facility] Blood VENOUS BLOOD SPECIMEN / Unknown Venipuncture / Unknown 06/12/2024 3:03 AM EST 06/12/2024 3:30 AM EST Shahnaz Scanlon MD CHEMISTRY ORDERABLES [facility] [place] [address] * (ABNORMAL) Basic Metabolic Panel (06/12/2024 3:03 AM EST) Glucose 132 65 - 199 mg/dL 06/12/2024 4:01 AM [facility] Comment:Glucose Concentratio n >=200 mg/dL plus symptoms is consistent with Diabetes Mellitus. Blood Urea Nitrogen 23(H) 10 - 20 mg/dL 06/12/2024 4:01 AM [facility] Creatinine 1.15 0.80 - 1.50 mg/dL 06/12/2024 4:01 AM [facility] Sodium 138 135 - 145 mMol/L 06/12/2024 4:01 AM [facility] Potassium 3.8 3.5 - 5.0 mMol/L 06/12/2024 4:01 AM [facility] Chloride 98 98 - 107 mMol/L 06/12/2024 4:01 AM [facility] Carbon Dioxide 29 22 - 31 mMol/L 06/12/2024 4:01 AM [facility] Anion Gap 11 5 - 15 mMol/L 06/12/2024 4:01 AM [facility] Calcium 9.5 8.5 - 10.5 mg/dL 06/12/2024 4:01 AM [facility] Est Glomerular Filtration Rate - Male 70 mL/min/1. 73 m?? 06/12/2024 4:01 AM [facility] Comment: This [...] Scanlon MD CHEMISTRY ORDERABLES Performing Organization Address [facility]/ZIP Co de Phone Number [facility] [place] [address] * POC, GLUCOSE (06/11/2024 11:56 PM EST) Glucometer, POC 135 65 - 199 mg/dL 06/11/2024 11:56 PM EST [facility] Comment:Supplemental ranges: <140 mg/dL before meals <180 mg/dL all other times of the day. Blood CAPILLARY BLOOD / Unknown 06/11/2024 11:56 PM EST 06/11/2024 11:56 PM EST Ethel Carrillo MD POINT OF CARE TEST Abimael MAHER Performing Organization Address [facility] Co de Phone Number [facility] [place] [address] * (ABNORMAL) POC, GLUCOSE (06/11/2024 8:25 PM EST) Glucometer, POC 210(H) 65 - 199 mg/dL 06/11/2024 8:26 PM EST [facility] Comment:Supplemental ranges: <140 mg/dL before meals <180 mg/dL all other times of the day. Blood CAPILLARY BLOOD / Unknown 06/11/2024 8:25 PM EST 06/11/2024 8:26 PM EST Ethel Carrillo MD POINT OF CARE TEST O NIAK Performing Organization Address City/[facility] Co de Phone Number [facility] [place] [address] * POC, GLUCOSE (06/11/2024 4:24 PM EST) Glucometer, POC 81 65 - 199 mg/dL 06/11/2024 4:24 PM EST [facility] Comment:Supplemental ranges: <140 mg/dL before meals <180 mg/dL all other times of the day. Blood CAPILLARY BLOOD / Unknown 06/11/2024 4:24 PM EST 06/11/2024 4:25 PM EST Ethel Carrillo MD POINT OF CARE TEST O NIKA Performing Organization Address City/[facility]/ZIP Co de Phone Number [facility] [place] [address] * (ABNORMAL) POC, GLUCOSE (06/11/2024 11:08 AM EST) Glucometer, POC 233(H) 65 - 199 mg/dL 06/11/2024 11:08 AM EST [facility] Comment:Supplemental ranges: <140 mg/dL before meals <180 mg/dL all other times of the day. Blood CAPILLARY BLOOD / Unknown 06/11/2024 11:08 AM EST 06/11/2024 11:08 AM EST Ethel Carrillo MD POINT OF CARE TEST O NIKA Performing Organization Address [facility] Co de Phone Number [facility] [place] [address] * POC, GLUCOSE (06/11/2024 7:48 AM EST) Glucometer, POC 184 65 - 199 mg/dL 06/11/2024 7:49 AM EST [facility] Comment:Supplemental ranges: <140 mg/dL before meals <180 mg/dL all other times of the day. Blood CAPILLARY BLOOD / Unknown 06/11/2024 7:48 AM EST 06/11/2024 7:49 AM EST Melida Valdes MD POINT OF CARE TEST O NIKA Performing Organization Address City/[facility]/ZIP Co de Phone Number [facility] [place] [address] * Heparin (unfractionated) Level (06/11/2024 5:31 AM EST) UF Heparin 0.55 IU/mL 06/11/2024 6:10 AM EST [facility] [...] EST Shahnaz Scanlon MD HEMATOLOGY ORDERABLE S [facility] [place] [address] * POC, GLUCOSE (06/11/2024 3:57 AM EST) Glucometer, POC 132 65 - 199 mg/dL 06/11/2024 3:58 AM EST [facility] Comment:Supplemental ranges: <140 mg/dL before meals <180 mg/dL all other times of the day. Blood CAPILLARY BLOOD / Unknown 06/11/2024 3:57 AM EST 06/11/2024 3:58 AM EST Melida Valdes MD POINT OF CARE TEST O RDERABLES [facility] [place] [address] * (ABNORMAL) CBC (with Diff) (06/11/2024 2:13 AM EST) White Blood Cell 9.91(H) 4.00 - 9.50 x10(3)/mc L 06/11/2024 2:26 AM [facility] Red Blood Cell 5.13 4.58 - 5.54 x10(6)/mc L 06/11/2024 2:26 AM [facility] Hemoglobin 15.3 13.7 - 16.5 g/dL 06/11/2024 2:26 AM [facility] Hematocrit 47.5 40.5 - 48.5 % 06/11/2024 2:26 AM [facility] Mean Cell Volume 92.6 82.9 - 93.1 fL 06/11/2024 2:26 AM [facility] Mean Cell Hemoglobin 29.8 27.5 - 32.1 pg 06/11/2024 2:26 AM [facility] Mean Cell Hemoglobin Concentration 32.2 32.0 - 35.7 g/dL 06/11/2024 2:26 AM [facility] Platelet 184 145 - 357 x10(3)/mc L 06/11/2024 2:26 AM [facility] Mean Platelet Volume 9.7 7.6 - 12.9 fL 06/11/2024 2:26 AM [facility] RDW Standard Deviation 48.0(H) 36.0 - 45.0 fL 06/11/2024 2:26 AM [facility] RDW coefficient of variation 14.0(H) 11.4 - 13.8 % 06/11/2024 2:26 AM [facility] NRBC% auto 0.0 % 06/11/2024 2:26 AM [facility] NRBC Absolute <0.01 <0.01 x10(3)/mc L 06/11/2024 2:26 AM [facility] Neutrophil % 50.3 % 06/11/2024 2:26 AM [facility] Neutrophil Absolute (ANC) - Automated 4.98 1.70 - 6.10 x10(3)/mc L 06/11/2024 2:26 AM [facility] Lymph % 33.5 % 06/11/2024 2:26 AM [facility] Lymph Absolute 3.32(H) 0.90 - 3.20 x10(3)/mc L 06/11/2024 2:26 AM [facility] Monocyte % 10.9 % 06/11/2024 2:26 AM [facility] Monocyte Absolute 1.08(H) 0.30 - 0.90 x10(3)/mc L 06/11/2024 2:26 AM [facility] Eos % 4.1 % 06/11/2024 2:26 AM [facility] Eos Absolute 0.41(H) 0.00 - 0.40 x10(3)/mc L 06/11/2024 2:26 AM EST [facility] Basophil % 0.7 % 06/11/2024 2:26 AM [facility] Baso Absolute 0.07 0.00 - 0.10 x10(3)/mc L 06/11/2024 2:26 AM [facility] Immature Gran % 0.5 % 2:26 AM [facility] Immature Gran Absolute 0.05(H) 0.00 - 0.04 x10(3)/mc L 06/11/2024 2:26 AM [facility] Blood VENOUS BLOOD SPECIMEN / Unknown Venipuncture / Unknown 06/11/2024 2:13 AM EST 06/11/2024 2:19 AM EST Shahnaz Scanlon MD HEMATOLOGY ORDERABLE S [facility] [place] [address] * Magnesium (06/11/2024 2:13 AM EST) Magnesium 0.83 0.69 - 1.07 mMol/L 06/11/2024 2:51 AM [facility] Blood VENOUS BLOOD SPECIMEN / Unknown Venipuncture / Unknown 06/11/2024 2:13 AM EST 06/11/2024 2:19 AM EST Shahnaz Scanlon MD CHEMISTRY ORDERABLES [facility] [place] [address] * (ABNORMAL) Basic Metabolic Panel (06/11/2024 2:13 AM EST) Pathologist [facility] Glucose 148 65 - 199 mg/dL 06/11/2024 2:51 AM EST [facility] Comment:Glucose Concentratio n >=200 mg/dL plus symptoms is consistent with Diabetes Mellitus. Blood Urea Nitrogen 24(H) 10 - 20 mg/dL 06/11/2024 2:51 AM [facility] Creatinine 1.06 0.80 - 1.50 mg/dL 06/11/2024 2:51 AM EST [facility] Sodium 134(L) 135 - 145 mMol/L 06/11/2024 2:51 AM [facility] Potassium 4.1 3.5 - 5.0 mMol/L 06/11/2024 2:51 AM [facility] Chloride 96(L) 98 - 107 mMol/L 06/11/2024 2:51 AM [facility] Carbon Dioxide 28 22 - 31 mMol/L 06/11/2024 2:51 AM EST [facility] Anion Gap 10 5 - 15 mMol/L 06/11/2024 2:51 AM [facility] Calcium 9.4 8.5 - 10.5 mg/dL 06/11/2024 2:51 AM [facility] Est Glomerular Filtration Rate - Male 77 mL/min/1. 73 m?? 06/11/2024 2:51 AM EST [facility] [...] Scanlon MD CHEMISTRY ORDERABLES Performing Organization Address City/[facility]/ZIP Co de Phone Number [facility] [place] [address] * POC, GLUCOSE (06/11/2024 12:50 AM EST) Glucometer, POC 144 65 - 199 mg/dL 06/11/2024 12:51 AM EST [facility] Comment:Supplemental ranges: <140 mg/dL before meals <180 mg/dL all other times of the day. Blood CAPILLARY BLOOD / Unknown 06/11/2024 12:50 AM EST 06/11/2024 12:51 AM EST Melida Valdes MD POINT OF CARE TEST O RDERABLES [facility] [place] [address] * (ABNORMAL) POC, GLUCOSE (06/10/2024 7:22 PM EST) Glucometer, POC 236(H) 65 - 199 mg/dL 06/10/2024 7:22 PM EST [facility] Comment:Supplemental ranges: <140 mg/dL before meals <180 mg/dL all other times of the day. Blood CAPILLARY BLOOD / Unknown 06/10/2024 7:22 PM EST 06/10/2024 7:22 PM EST Melida Valdes MD POINT OF CARE TEST O RDERABLES [facility] [place] [address] * (ABNORMAL) Blood Gas, Venous (06/10/2024 5:42 PM EST) pH, Venous 7.34 7.32 - 7.42 06/10/2024 5:50 PM EST [facility] PCO2, Venous 52 38 - 58 mmHg 06/10/2024 5:50 PM [facility] PO2, Venous 24 16 - 65 mmHg 06/10/2024 5:50 PM EST [facility] Bicarbonate, Venous 27.4 22 - 31 mmol/L 06/10/2024 5:50 PM [facility] Base Excess, Venous 1.7(L) 1.9 - 4.5 mmol/L 06/10/2024 5:50 PM [facility] Hemoglobin, Venous 16.8(H) 13.7 - 16.5 g/dL 06/10/2024 5:50 PM [facility] Oxyhemoglobin, Venous 39.0 % 06/10/2024 5:50 PM [facility] Carboxyhemoglobin , Venous 0.3 % 06/10/2024 5:50 PM [facility] Comment: Nonsmokers: 0.5-1.5% COHB ?? Smokers: Variable ??but usually less than 10% ?? Toxic: 20-30% COHB ?? Lethal: Greater than 60% COHB Methemoglobin, Venous 0.5 <=1.5 % 06/10/2024 5:50 PM EST [facility] Sodium, Venous 137 135 - 145 mmol/L 06/10/2024 5:50 PM EST [facility] Chloride, Venous 96(L) 98 - 107 mmol/L 06/10/2024 5:50 PM EST [facility] Potassium, Venous 4.6 3.5 - 5.0 mmol/L 06/10/2024 5:50 PM [facility] Ionized Calcium, Venous 1.23 1.15 - 1.33 mmol/L 06/10/2024 5:50 PM EST [facility] Glucose, Venous 114 65 - 199 mg/dL 06/10/2024 5:50 PM EST [facility] Comment:Glucose Concentratio n >=200 mg/dL plus symptoms is consistent with Diabetes Mellitus. Lactate, Venous 1.1 0.5 - 2.2 mmol/L 06/10/2024 5:50 PM [facility] Blood Gas Source Venous 06/10/20 5:50 PM [facility] Blood VENOUS BLOOD SPECIMEN / Unknown Blood Gas Venous / Unknown 06/10/2024 5:42 PM EST 06/10/2024 5:47 PM EST Melida Valdes MD CHEMISTRY ORDERABLES [facility] [place] [address] * POC, GLUCOSE (06/10/2024 5:35 PM EST) [facility] Signature Glucometer, POC 123 65 - 199 mg/dL 06/10/2024 5:35 PM EST [facility] Comment:Supplemental ranges: <140 mg/dL before meals <180 mg/dL all other times of the day. Blood CAPILLARY BLOOD / Unknown 06/10/2024 5:35 PM EST 06/10/2024 5:35 PM EST Melida Valdes MD POINT OF CARE TEST O RDERABLES [facility] [place] [address] * (ABNORMAL) POC, GLUCOSE (06/10/2024 11:25 AM EST) Glucometer, POC 216(H) 65 - 199 mg/dL 06/10/2024 11:25 AM EST [facility] Comment:Supplemental ranges: <140 mg/dL before meals <180 mg/dL all other times of the day. Blood CAPILLARY BLOOD / Unknown 06/10/2024 11:25 AM EST 06/10/2024 11:25 AM EST Melida Valdes MD POINT OF CARE TEST O NIKA Performing Organization Address City/[facility]/ZIP Co de Phone Number [facility] [place] [address] * (ABNORMAL) POC, GLUCOSE (06/10/2024 7:46 AM EST) Glucometer, POC 206(H) 65 - 199 mg/dL 06/10/2024 7:46 AM EST [facility] Comment:Supplemental ranges: <140 mg/dL before meals <180 mg/dL all other times of the day. Blood CAPILLARY BLOOD / Unknown 06/10/2024 7:46 AM EST 06/10/2024 7:46 AM EST Melida Valdes MD POINT OF CARE TEST O NIKA Performing Organization Address City/[facility]/ZIP Co de Phone Number [facility] [place] [address] * POC, GLUCOSE (06/10/2024 4:23 AM EST) Glucometer, POC 154 65 - 199 mg/dL 06/10/2024 4:24 AM EST [facility] Comment:Supplemental ranges: <140 mg/dL before meals <180 mg/dL all other times of the day. Blood CAPILLARY BLOOD / Unknown 06/10/2024 4:23 AM EST 06/10/2024 4:24 AM EST Melida Valdes MD POINT OF CARE TEST O NIKA [facility] [place] [address] * (ABNORMAL) CBC (with Diff) (06/10/2024 1:55 AM EST) White Blood Cell 9.00 4.00 - 9.50 x10(3)/mc L 06/10/2024 2:14 AM [facility] Red Blood Cell 5.03 4.58 - 5.54 x10(6)/mc L 06/10/2024 2:14 AM [facility] Hemoglobin 14.9 13.7 - 16.5 g/dL 06/10/2024 2:14 AM [facility] Hematocrit 46.4 40.5 - 48.5 % 06/10/2024 2:14 AM [facility] Mean Cell Volume 92.2 82.9 - 93.1 fL 06/10/2024 2:14 AM [facility] Mean Cell Hemoglobin 29.6 27.5 - 32.1 pg 06/10/2024 2:14 AM [facility] Mean Cell Hemoglobin Concentration 32.1 32.0 - 35.7 g/dL 06/10/2024 2:14 AM [facility] Platelet 191 145 - 357 x10(3)/mc L 06/10/2024 2:14 AM [facility] Mean Platelet Volume 9.7 7.6 - 12.9 fL 06/10/2024 2:14 AM [facility] RDW Standard Deviation 47.4(H) 36.0 - 45.0 fL 06/10/2024 2:14 AM [facility] RDW coefficient of variation 14.1(H) 11.4 - 13.8 % 06/10/2024 2:14 AM [facility] NRBC% auto 0.0 % 06/10/2024 2:14 AM [facility] NRBC Absolute <0.01 <0.01 x10(3)/mc L 06/10/2024 2:14 AM [facility] Neutrophil % 48.7 % 06/10/2024 2:14 AM [facility] Neutrophil Absolute (ANC) - Automated 4.39 1.70 - 6.10 x10(3)/mc L 06/10/2024 2:14 AM [facility] Lymph % 34.9 % 06/10/2024 2:14 AM [facility] Lymph Absolute 3.14 0.90 - 3.20 x10(3)/mc L 06/10/2024 2:14 AM [facility] Monocyte % 11.2 % 06/10/2024 2:14 AM [facility] Monocyte Absolute 1.01(H) 0.30 - 0.90 x10(3)/mc L 06/10/2024 2:14 AM [facility] Eos % 3.6 % 06/10/2024 2:14 AM [facility] Eos Absolute 0.32 0.00 - 0.40 x10(3)/mc L 06/10/2024 2:14 AM [facility] Basophil % 1.0 % 06/10/2024 2:14 AM [facility] Baso Absolute 0.09 0.00 - 0.10 x10(3)/mc L 06/10/2024 2:14 AM [facility] Immature Gran % 0.6 % 2:14 AM [facility] Immature Gran Absolute 0.05(H) 0.00 - 0.04 x10(3)/mc L 06/10/2024 2:14 AM [facility] Blood VENOUS BLOOD SPECIMEN / Unknown Venipuncture / Unknown 06/10/2024 1:55 AM EST 06/10/2024 2:05 AM EST Shahnaz Scanlon MD HEMATOLOGY ORDERABLE S [facility] [place] [address] * Magnesium (06/10/2024 1:55 AM EST) Magnesium 0.83 0.69 - 1.07 mMol/L 06/10/2024 2:37 AM [facility] Blood VENOUS BLOOD SPECIMEN / Unknown Venipuncture / Unknown 06/10/2024 1:55 AM EST 06/10/2024 2:05 AM EST Shahnaz Scanlon MD CHEMISTRY ORDERABLES [facility] [address] [place] [address] * (ABNORMAL) Basic Metabolic Panel (06/10/2024 1:55 AM EST) Pathologist [facility] Glucose 140 65 - 199 mg/dL 06/10/2024 2:37 AM [facility] Comment:Glucose Concentratio n >=200 mg/dL plus symptoms is consistent with Diabetes Mellitus. Blood Urea Nitrogen 24(H) 10 - 20 mg/dL 06/10/2024 2:37 AM [facility] Creatinine 1.06 0.80 - 1.50 mg/dL 06/10/2024 2:37 AM [facility] Sodium 138 135 - 145 mMol/L 06/10/2024 2:37 AM [facility] Potassium 4.1 3.5 - 5.0 mMol/L 06/10/2024 2:37 AM [facility] Chloride 100 98 - 107 mMol/L 06/10/2024 2:37 AM [facility] Carbon Dioxide 25 22 - 31 mMol/L 06/10/2024 2:37 AM [facility] Anion Gap 13 5 - 15 mMol/L 06/10/2024 2:37 AM [facility] Calcium 9.5 8.5 - 10.5 mg/dL 06/10/2024 2:37 AM [facility] Est Glomerular Filtration Rate - Male 77 mL/min/1. 73 m?? 06/10/2024 2:37 AM EST [facility] [...] AM EST Shahnaz Scanlon MD CHEMISTRY ORDERABLES [facility] [place] [address] * Heparin (unfractionated) Level (06/10/2024 1:54 AM EST) UF Heparin 0.56 IU/mL 06/10/2024 2:41 AM EST [facility] [...] MD HEMATOLOGY ORDERABLE S Performing Organization Address [facility]/ZIP Co de Phone Number [facility] [place] [address] * POC, GLUCOSE (06/10/2024 12:05 AM EST) Glucometer, POC 125 65 - 199 mg/dL 06/10/2024 12:05 AM EST [facility] Comment:Supplemental ranges: <140 mg/dL before meals <180 mg/dL all other times of the day. Blood CAPILLARY BLOOD / Unknown 06/10/2024 12:05 AM EST 06/10/2024 12:05 AM EST Melida Valdes MD POINT OF CARE TEST O NIKA Performing Organization Address [facility] Co de Phone Number [facility] [place] [address] * POC, GLUCOSE (06/09/2024 8:36 PM EST) Glucometer, POC 197 65 - 199 mg/dL 06/09/2024 8:36 PM EST [facility] Comment:Supplemental ranges: <140 mg/dL before meals <180 mg/dL all other times of the day. Blood CAPILLARY BLOOD / Unknown 06/09/2024 8:36 PM EST 06/09/2024 8:36 PM EST Melida Valdes MD POINT OF CARE TEST O NIKA Performing Organization Address City/[facility]/ZIP Co de Phone Number [facility] [place] [address] * POC, GLUCOSE (06/09/2024 5:27 PM EST) Glucometer, POC 174 65 - 199 mg/dL 06/09/2024 5:28 PM EST [facility] Comment:Supplemental ranges: <140 mg/dL before meals <180 mg/dL all other times of the day. Blood CAPILLARY BLOOD / Unknown 06/09/2024 5:27 PM EST 06/09/2024 5:28 PM EST Melida Valdes MD POINT OF CARE TEST O RDBECKIE Performing Organization Address City/[facility]/ZIP Co de Phone Number [facility] [place] [address] * (ABNORMAL) POC, GLUCOSE (06/09/2024 11:52 AM EST) Glucometer, POC 211(H) 65 - 199 mg/dL 06/09/2024 11:52 AM EST [facility] Comment:Supplemental ranges: <140 mg/dL before meals <180 mg/dL all other times of the day. Blood CAPILLARY BLOOD / Unknown 06/09/2024 11:52 AM EST 06/09/2024 11:52 AM EST Melida Valdes MD POINT OF CARE TEST O NIKA Performing Organization Address City/[facility]/ZIP Co de Phone Number [facility] [place] [address] * Potassium (06/09/2024 8:25 AM EST) Potassium 4.6 3.5 - 5.0 mMol/L 06/09/2024 10:09 AM EST [facility] Blood VENOUS BLOOD SPECIMEN / Unknown Venipuncture / Unknown 06/09/2024 8:25 AM EST 06/09/2024 8:42 AM EST Shahnaz Scanlon MD CHEMISTRY ORDERABLES Performing Organization Address City/[facility]/ZIP Co de Phone Number [facility] [place] [address] * (ABNORMAL) POC, GLUCOSE (06/09/2024 8:10 AM EST) Glucometer, POC 209(H) 65 - 199 mg/dL 06/09/2024 8:10 AM EST [facility] Comment:Supplemental ranges: <140 mg/dL before meals <180 mg/dL all other times of the day. Blood CAPILLARY BLOOD / Unknown 06/09/2024 8:10 AM EST 06/09/2024 8:11 AM EST Melida Valdes MD POINT OF CARE TEST O NIKA Performing Organization Address [facility] de Phone Number [facility] [place] [address] * POC, GLUCOSE (06/09/2024 4:40 AM EST) Glucometer, POC 131 65 - 199 mg/dL 06/09/2024 4:40 AM EST [facility] Comment:Supplemental ranges: <140 mg/dL before meals <180 mg/dL all other times of the day. Blood CAPILLARY BLOOD / Unknown 06/09/2024 4:40 AM EST 06/09/2024 4:41 AM EST Melida Valdes MD POINT OF CARE TEST Abimael MAHER Performing Organization Address [facility] de Phone Number [facility] [place] [address] * Heparin (unfractionated) Level (06/09/2024 2:12 AM EST) UF Heparin 0.55 IU/mL 06/09/2024 2:33 AM EST [facility] [...] EST Shahnaz Scanlon MD HEMATOLOGY ORDERABLE S [facility] [place] [address] * (ABNORMAL) CBC (with Diff) (06/09/2024 2:12 AM EST) White Blood Cell 9.80(H) 4.00 - 9.50 x10(3)/mc L 06/09/2024 2:44 AM [facility] Red Blood Cell 5.18 4.58 - 5.54 x10(6)/mc L 06/09/2024 2:44 AM [facility] Hemoglobin 15.5 13.7 - 16.5 g/dL 06/09/2024 2:44 AM [facility] Hematocrit 47.4 40.5 - 48.5 % 06/09/2024 2:44 AM [facility] Mean Cell Volume 91.5 82.9 - 93.1 fL 06/09/2024 2:44 AM [facility] Mean Cell Hemoglobin 29.9 27.5 - 32.1 pg 06/09/2024 2:44 AM [facility] Mean Cell Hemoglobin Concentration 32.7 32.0 - 35.7 g/dL 06/09/2024 2:44 AM [facility] Platelet 205 145 - 357 x10(3)/mc L 06/09/2024 2:44 AM [facility] Mean Platelet Volume 9.7 7.6 - 12.9 fL 06/09/2024 2:44 AM [facility] RDW Standard Deviation 47.7(H) 36.0 - 45.0 fL 06/09/2024 2:44 AM [facility] RDW coefficient of variation 14.1(H) 11.4 - 13.8 % 06/09/2024 2:44 AM [facility] NRBC% auto 0.0 % 06/09/2024 2:44 AM [facility] NRBC Absolute <0.01 <0.01 x10(3)/mc L 06/09/2024 2:44 AM [facility] Neutrophil % 53.0 % 06/09/2024 2:44 AM [facility] Neutrophil Absolute (ANC) - Automated 5.19 1.70 - 6.10 x10(3)/mc L 06/09/2024 2:44 AM [facility] Lymph % 31.6 % 06/09/2024 2:44 AM [facility] Lymph Absolute 3.10 0.90 - 3.20 x10(3)/mc L 06/09/2024 2:44 AM [facility] Monocyte % 11.0 % 06/09/2024 2:44 AM [facility] Monocyte Absolute 1.08(H) 0.30 - 0.90 x10(3)/mc L 06/09/2024 2:44 AM [facility] Eos % 2.9 % 06/09/2024 2:44 AM [facility] Eos Absolute 0.28 0.00 - 0.40 x10(3)/mc L 06/09/2024 2:44 AM [facility] Basophil % 0.9 % 06/09/2024 2:44 AM [facility] Baso Absolute 0.09 0.00 - 0.10 x10(3)/mc L 06/09/2024 2:44 AM [facility] Immature Gran % 0.6 % 2:44 AM [facility] Immature Gran Absolute 0.06(H) 0.00 - 0.04 x10(3)/mc L 06/09/2024 2:44 AM EST [facility] Blood VENOUS BLOOD SPECIMEN / Unknown Venipuncture / Unknown 06/09/2024 2:12 AM EST 06/09/2024 2:21 AM EST Shahnaz Scanlon MD HEMATOLOGY ORDERABLE S Performing Organization Address City/[facility]/ZIP Co de Phone Number [facility] [place] [address] * Magnesium (06/09/2024 2:12 AM EST) Magnesium 0.83 0.69 - 1.07 mMol/L 06/09/2024 2:52 AM [facility] Blood VENOUS BLOOD SPECIMEN / Unknown Venipuncture / Unknown 06/09/2024 2:12 AM EST 06/09/2024 2:22 AM EST Shahnaz Scanlon MD CHEMISTRY ORDERABLES [facility] [place] [address] * (ABNORMAL) Basic Metabolic Panel (06/09/2024 2:12 AM EST) Glucose 147 65 - 199 mg/dL 06/09/2024 2:52 AM [facility] Comment:Glucose Concentratio n >=200 mg/dL plus symptoms is consistent with Diabetes Mellitus. Blood Urea Nitrogen 24(H) 10 - 20 mg/dL 06/09/2024 2:52 AM [facility] Creatinine 1.11 0.80 - 1.50 mg/dL 06/09/2024 2:52 AM [facility] Sodium 136 135 - 145 mMol/L 06/09/2024 2:52 AM [facility] Potassium 3.9 3.5 - 5.0 mMol/L 06/09/2024 2:52 AM [facility] Chloride 98 98 - 107 mMol/L 06/09/2024 2:52 AM [facility] Carbon Dioxide 27 22 - 31 mMol/L 06/09/2024 2:52 AM [facility] Anion Gap 11 5 - 15 mMol/L 06/09/2024 2:52 AM [facility] Calcium 9.7 8.5 - 10.5 mg/dL 06/09/2024 2:52 AM [facility] Est Glomerular Filtration Rate - Male 73 mL/min/1. 73 m?? 06/09/2024 2:52 AM [facility] Comment: This [...] AM EST Shahnaz Scanlon MD CHEMISTRY ORDERABLES [facility] [place] [address] * POC, GLUCOSE (06/09/2024 12:34 AM EST) Glucometer, POC 186 65 - 199 mg/dL 06/09/2024 12:34 AM EST [facility] Comment:Supplemental ranges: <140 mg/dL before meals <180 mg/dL all other times of the day. Blood CAPILLARY BLOOD / Unknown 06/09/2024 12:34 AM EST 06/09/2024 12:34 AM EST Melida Valdes MD POINT OF CARE TEST O RDERABLES Performing Organization Address [facility] Co de Phone Number [facility] [place] [address] * POC, GLUCOSE (06/08/2024 8:27 PM EST) Glucometer, POC 176 65 - 199 mg/dL 06/08/2024 8:28 PM EST [facility] Comment:Supplemental ranges: <140 mg/dL before meals <180 mg/dL all other times of the day. Blood CAPILLARY BLOOD / Unknown 06/08/2024 8:27 PM EST 06/08/2024 8:28 PM EST Melida Valdes MD POINT OF CARE TEST O RDERABLES Performing Organization Address [facility] de Phone Number [facility] [place] [address] * POC, GLUCOSE (06/08/2024 4:16 PM EST) Glucometer, POC 159 65 - 199 mg/dL 06/08/2024 4:16 PM EST [facility] Comment:Supplemental ranges: <140 mg/dL before meals <180 mg/dL all other times of the day. Blood CAPILLARY BLOOD / Unknown 06/08/2024 4:16 PM EST 06/08/2024 4:16 PM EST Melida Valdes MD POINT OF CARE TEST O RDERABLES Performing Organization Address [facility] Co de Phone Number [facility] [place] [address] * (ABNORMAL) POC, GLUCOSE (06/08/2024 12:35 PM EST) Glucometer, POC 226(H) 65 - 199 mg/dL 06/08/2024 12:35 PM EST [facility] Comment:Supplemental ranges: <140 mg/dL before meals <180 mg/dL all other times of the day. Blood CAPILLARY BLOOD / Unknown 06/08/2024 12:35 PM EST 06/08/2024 12:35 PM EST Melida Valdes MD POINT OF CARE TEST O NIKA Performing Organization Address [facility] Co de Phone Number [facility] [place] [address] * POC, GLUCOSE (06/08/2024 8:10 AM EST) Glucometer, POC 190 65 - 199 mg/dL 06/08/2024 8:14 AM EST [facility] Comment:Supplemental ranges: <140 mg/dL before meals <180 mg/dL all other times of the day. Blood CAPILLARY BLOOD / Unknown 06/08/2024 8:10 AM EST 06/08/2024 8:14 AM EST Melida Valdes MD POINT OF CARE TEST O NIKA Performing Organization Address [facility] Phone Number [facility] [place] [address] * POC, GLUCOSE (06/08/2024 4:09 AM EST) Glucometer, POC 151 65 - 199 mg/dL 06/08/2024 4:10 AM EST [facility] Comment:Supplemental ranges: <140 mg/dL before meals <180 mg/dL all other times of the day. Blood CAPILLARY BLOOD / Unknown 06/08/2024 4:09 AM EST 06/08/2024 4:10 AM EST Melida Valdes MD POINT OF CARE TEST O NIKA Performing Organization Address [facility] Co de Phone Number [facility] [place] [address] * Heparin (unfractionated) Level (06/08/2024 3:21 AM EST) UF Heparin 0.46 IU/mL 06/08/2024 3:41 AM EST [facility] [...] MD HEMATOLOGY ORDERABLE S Performing Organization Address City/State/[facility] Co de Phone Number [facility] [place] [address] * (ABNORMAL) CBC (with Diff) (06/08/2024 3:21 AM EST) White Blood Cell 9.92(H) 4.00 - 9.50 x10(3)/mc L 06/08/2024 3:34 AM EST [facility] Red Blood Cell 5.09 4.58 - 5.54 x10(6)/mc L 06/08/2024 3:34 AM EST [facility] Hemoglobin 15.1 13.7 - 16.5 g/dL 06/08/2024 3:34 AM [facility] Hematocrit 46.7 40.5 - 48.5 % 06/08/2024 3:34 AM [facility] Mean Cell Volume 91.7 82.9 - 93.1 fL 06/08/2024 3:34 AM [facility] Mean Cell Hemoglobin 29.7 27.5 - 32.1 pg 06/08/2024 3:34 AM [facility] Mean Cell Hemoglobin Concentration 32.3 32.0 - 35.7 g/dL 06/08/2024 3:34 AM [facility] Platelet 203 145 - 357 x10(3)/mc L 06/08/2024 3:34 AM [facility] Mean Platelet Volume 9.4 7.6 - 12.9 fL 06/08/2024 3:34 AM [facility] RDW Standard Deviation 46.9(H) 36.0 - 45.0 fL 06/08/2024 3:34 AM [facility] RDW coefficient of variation 13.8 11.4 - 13.8 % 06/08/2024 3:34 AM [facility] NRBC% auto 0.0 % 06/08/2024 3:34 AM [facility] NRBC Absolute <0.01 <0.01 x10(3)/mc L 06/08/2024 3:34 AM [facility] Neutrophil % 56.8 % 06/08/2024 3:34 AM [facility] Neutrophil Absolute (ANC) - Automated 5.63 1.70 - 6.10 x10(3)/mc L 06/08/2024 3:34 AM [facility] Lymph % 27.3 % 06/08/2024 3:34 AM [facility] Lymph Absolute 2.71 0.90 - 3.20 x10(3)/mc L 06/08/2024 3:34 AM [facility] Monocyte % 11.2 % 06/08/2024 3:34 AM [facility] Monocyte Absolute 1.11(H) 0.30 - 0.90 x10(3)/mc L 06/08/2024 3:34 AM [facility] Eos % 3.4 % 06/08/2024 3:34 AM [facility] Eos Absolute 0.34 0.00 - 0.40 x10(3)/mc L 06/08/2024 3:34 AM [facility] Basophil % 0.8 % 06/08/2024 3:34 AM [facility] Baso Absolute 0.08 0.00 - 0.10 x10(3)/mc L 06/08/2024 3:34 AM EST [facility] Immature Gran % 0.5 % 3:34 AM [facility] Immature Gran Absolute 0.05(H) 0.00 - 0.04 x10(3)/mc L 06/08/2024 3:34 AM [facility] Blood VENOUS BLOOD SPECIMEN / Unknown Venipuncture / Unknown 06/08/2024 3:21 AM EST 06/08/2024 3:27 AM EST Shahnaz Scanlon MD HEMATOLOGY ORDERABLE S Performing Organization Address City/[facility]/ZIP Co de Phone Number [facility] [place] [address] * Magnesium (06/08/2024 3:21 AM EST) Magnesium 0.84 0.69 - 1.07 mMol/L 06/08/2024 3:59 AM [facility] Blood VENOUS BLOOD SPECIMEN / Unknown Venipuncture / Unknown 06/08/2024 3:21 AM EST 06/08/2024 3:27 AM EST Shahnaz Scanlon MD CHEMISTRY ORDERABLES [facility] [place] [address] * (ABNORMAL) Basic Metabolic Panel (06/08/2024 3:21 AM EST) Glucose 173 65 - 199 mg/dL 06/08/2024 3:59 AM [facility] Comment:Glucose Concentratio n >=200 mg/dL plus symptoms is consistent with Diabetes Mellitus. Blood Urea Nitrogen 25(H) 10 - 20 mg/dL 06/08/2024 3:59 AM [facility] Creatinine 1.09 0.80 - 1.50 mg/dL 06/08/2024 3:59 AM [facility] Sodium 135 135 - 145 mMol/L 06/08/2024 3:59 AM [facility] Potassium 4.2 3.5 - 5.0 mMol/L 06/08/2024 3:59 AM [facility] Chloride 98 98 - 107 mMol/L 06/08/2024 3:59 AM [facility] Carbon Dioxide 25 22 - 31 mMol/L 06/08/2024 3:59 AM [facility] Anion Gap 12 5 - 15 mMol/L 06/08/2024 3:59 AM [facility] Calcium 9.4 8.5 - 10.5 mg/dL 06/08/2024 3:59 AM [facility] Est Glomerular Filtration Rate - Male 74 mL/min/1. 73 m?? 06/08/2024 3:59 AM [facility] Comment: This [...] AM EST Shahnaz Scanlon MD CHEMISTRY ORDERABLES [facility] [place] [address] * POC, GLUCOSE (06/07/2024 11:57 PM EST) Glucometer, POC 188 65 - 199 mg/dL 06/07/2024 11:57 PM EST [facility] Comment:Supplemental ranges: <140 mg/dL before meals <180 mg/dL all other times of the day. Blood CAPILLARY BLOOD / Unknown 06/07/2024 11:57 PM EST 06/07/2024 11:58 PM EST Melida Valdes MD POINT OF CARE TEST O NIKA Performing Organization Address City/[facility]/ZIP Co de Phone Number [facility] [place] [address] * POC, GLUCOSE (06/07/2024 8:05 PM EST) Glucometer, POC 118 65 - 199 mg/dL 06/07/2024 8:06 PM EST [facility] Comment:Supplemental ranges: <140 mg/dL before meals <180 mg/dL all other times of the day. Blood CAPILLARY BLOOD / Unknown 06/07/2024 8:05 PM EST 06/07/2024 8:06 PM EST Melida Valdes MD POINT OF CARE TEST O NIKA Performing Organization Address [facility] Co de Phone Number [facility] [place] [address] * Potassium (06/07/2024 5:22 PM EST) Potassium 4.6 3.5 - 5.0 mMol/L 06/07/2024 5:59 PM EST [facility] Blood VENOUS BLOOD SPECIMEN / Unknown Venipuncture / Unknown 06/07/2024 5:22 PM EST 06/07/2024 5:26 PM EST Shahnaz Scanlon MD CHEMISTRY ORDERABLES Performing Organization Address City/[facility]/ZIP Co de Phone Number [facility] [place] [address] * POC, GLUCOSE (06/07/2024 4:31 PM EST) Glucometer, POC 174 65 - 199 mg/dL 06/07/2024 4:34 PM EST [facility] Comment:Supplemental ranges: <140 mg/dL before meals <180 mg/dL all other times of the day. Blood CAPILLARY BLOOD / Unknown 06/07/2024 4:31 PM EST 06/07/2024 4:34 PM EST Melida Valdes MD POINT OF CARE TEST O RDERABLES [facility] [address] [place] [address] * MRI Cardiac Morphology Function wwo Contrast (06/07/2024 1:10 PM EST) WORKSTATION ID [id number] DH RAD Anatomical Region Laterality Modality Magnetic [...] - Mildly dilated left ventricle size with ekbtqmes-[id number] decreased LV systolic function. ??LV ejection fraction [...] who have questions please contact the health skin care therapist that requested your imaging first. ? Electronically signed by: Kriss Alonzo MD, [facility] ([phone]), at 06/07/2024 2:41 PM Narrative 06/07/2024 2:41 [...] VENTRICLE: Mildly dilated left ventricle size with [id number] decreased LV systolic function. ??LV ejection fraction [...] VENTRICLE: Mildly dilated left ventricle size with vmfxmexx-[id number] decreasedLV systolic function. LV ejection fraction is [...] - Mildly dilated left ventricle size with jvjnfakb-[id number] decreasedLV systolic function. LV ejection fraction is [...] patients who have questions please contactthe health skin care therapist that requested your imaging first. Electronically signed by: Kriss Alonzo MD, [facility]([phone]), at 06/07/2024 2:41 PM Delroy Fofana MD IM MRI ORDERABLES * (ABNORMAL) POC, GLUCOSE (06/07/2024 11:05 AM EST) Glucometer, POC 221(H) 65 - 199 mg/dL 06/07/2024 11:06 AM EST [facility] Comment:Supplemental ranges: <140 mg/dL before meals <180 mg/dL all other times of the day. Blood CAPILLARY BLOOD / Unknown 06/07/2024 11:05 AM EST 06/07/2024 11:06 AM EST Melida Valdes MD POINT OF CARE TEST O RDERABLES [facility] [place] [address] * (ABNORMAL) POC, GLUCOSE (06/07/2024 11:03 AM EST) Glucometer, POC 250(H) 65 - 199 mg/dL 06/07/2024 11:04 AM EST [facility] Comment:Supplemental ranges: <140 mg/dL before meals <180 mg/dL all other times of the day. Blood CAPILLARY BLOOD / Unknown 06/07/2024 11:03 AM EST 06/07/2024 11:04 AM EST Melida Valdes MD POINT OF CARE TEST O RDERABLES [facility] [place] [address] * Potassium (06/07/2024 9:44 AM EST) Potassium 4.7 3.5 - 5.0 mMol/L 06/07/2024 10:23 AM EST [facility] Blood VENOUS BLOOD SPECIMEN / Unknown Venipuncture / Unknown 06/07/2024 9:44 AM EST 06/07/2024 9:57 AM EST Shahnaz Scanlon MD CHEMISTRY ORDERABLES [facility] [place] [address] * POC, GLUCOSE (06/07/2024 7:45 AM EST) Glucometer, POC 175 65 - 199 mg/dL 06/07/2024 7:45 AM EST [facility] Comment:Supplemental ranges: <140 mg/dL before meals <180 mg/dL all other times of the day. Blood CAPILLARY BLOOD / Unknown 06/07/2024 7:45 AM EST 06/07/2024 7:46 AM EST Melida Valdes MD POINT OF CARE TEST O RDERABLES [facility] [place] [address] * XR Chest PA & Lateral (Generic) (06/07/2024 7:03 AM EST) [facility] WORKSTATION ID [id number] RAD Anatomical Region Laterality Modality Chest N/A [...] who have questions please contact the health skin care therapist that requested your imaging first. ? Electronically signed by: Stuart Aponte MD, [facility] ??([phone]), at 06/07/2024 10:45 AM Narrative 06/07/2024 10:45 [...] patients who have questions please contactthe health skin care therapist that requested your imaging first. Electronically signed by: Stuart Aponte MD, [facility]([phone]), at 06/07/2024 10:45 AM Shahnaz Scanlon MD IMG DX ORDERABLES * POC, GLUCOSE (06/07/2024 4:25 AM EST) [facility] Signature Glucometer, POC 127 65 - 199 mg/dL 06/07/2024 4:26 AM EST [facility] Comment:Supplemental ranges: <140 mg/dL before meals <180 mg/dL all other times of the day. Blood CAPILLARY BLOOD / Unknown 06/07/2024 4:25 AM EST 06/07/2024 4:26 AM EST Melida Valdes MD POINT OF CARE TEST O RDERABLES Performing Organization Address [facility]/ZIP Co de Phone Number [facility] [place] [address] * Heparin (unfractionated) Level (06/07/2024 2:41 AM EST) Pathologist [facility] UF Heparin 0.45 IU/mL 06/07/2024 3:03 AM EST [facility] [...] EST Shahnaz Scanlon MD HEMATOLOGY ORDERABLE S [facility] [place] [address] * (ABNORMAL) CBC (with Diff) (06/07/2024 2:41 AM EST) [facility] White Blood Cell 10.06(H) 4.00 - 9.50 x10(3)/mc L 06/07/2024 2:58 AM EST [facility] Red Blood Cell 5.02 4.58 - 5.54 x10(6)/mc L 06/07/2024 2:58 AM [facility] Hemoglobin 14.8 13.7 - 16.5 g/dL 06/07/2024 2:58 AM [facility] Hematocrit 46.2 40.5 - 48.5 % 06/07/2024 2:58 AM [facility] Mean Cell Volume 92.0 82.9 - 93.1 fL 06/07/2024 2:58 AM [facility] Mean Cell Hemoglobin 29.5 27.5 - 32.1 pg 06/07/2024 2:58 AM [facility] Mean Cell Hemoglobin Concentration 32.0 32.0 - 35.7 g/dL 06/07/2024 2:58 AM [facility] Platelet 202 145 - 357 x10(3)/mc L 06/07/2024 2:58 AM [facility] Mean Platelet Volume 9.6 7.6 - 12.9 fL 06/07/2024 2:58 AM [facility] RDW Standard Deviation 46.3(H) 36.0 - 45.0 fL 06/07/2024 2:58 AM [facility] RDW coefficient of variation 13.8 11.4 - 13.8 % 06/07/2024 2:58 AM [facility] NRBC% auto 0.0 % 06/07/2024 2:58 AM [facility] NRBC Absolute <0.01 <0.01 x10(3)/mc L 06/07/2024 2:58 AM [facility] Neutrophil % 55.9 % 06/07/2024 2:58 AM [facility] Neutrophil Absolute (ANC) - Automated 5.62 1.70 - 6.10 x10(3)/mc L 06/07/2024 2:58 AM [facility] Lymph % 28.3 % 06/07/2024 2:58 AM [facility] Lymph Absolute 2.85 0.90 - 3.20 x10(3)/mc L 06/07/2024 2:58 AM [facility] Monocyte % 10.8 % 06/07/2024 2:58 AM [facility] Monocyte Absolute 1.09(H) 0.30 - 0.90 x10(3)/mc L 06/07/2024 2:58 AM [facility] Eos % 3.6 % 06/07/2024 2:58 AM [facility] Eos Absolute 0.36 0.00 - 0.40 x10(3)/mc L 06/07/2024 2:58 AM [facility] Basophil % 0.8 % 06/07/2024 2:58 AM [facility] Baso Absolute 0.08 0.00 - 0.10 x10(3)/mc L 06/07/2024 2:58 AM [facility] Immature Gran % 0.6 % 2:58 AM [facility] Immature Gran Absolute 0.06(H) 0.00 - 0.04 x10(3)/mc L 06/07/2024 2:58 AM [facility] Blood VENOUS BLOOD SPECIMEN / Unknown Venipuncture / Unknown 06/07/2024 2:41 AM EST 06/07/2024 2:52 AM EST Shahnaz Scanlon MD HEMATOLOGY ORDERABLE S [facility] [place] [address] * Magnesium (06/07/2024 2:41 AM EST) Magnesium 0.92 0.69 - 1.07 mMol/L 06/07/2024 3:25 AM [facility] Blood VENOUS BLOOD SPECIMEN / Unknown Venipuncture / Unknown 06/07/2024 2:41 AM EST 06/07/2024 2:51 AM EST Shahnaz Scanlon MD CHEMISTRY ORDERABLES [facility] [place] [address] * (ABNORMAL) Basic Metabolic Panel (06/07/2024 2:41 AM EST) Glucose 140 65 - 199 mg/dL 06/07/2024 3:25 AM EST [facility] Comment:Glucose Concentratio n >=200 mg/dL plus symptoms is consistent with Diabetes Mellitus. Blood Urea Nitrogen 26(H) 10 - 20 mg/dL 06/07/2024 3:25 AM [facility] Creatinine 1.06 0.80 - 1.50 mg/dL 06/07/2024 3:25 AM [facility] Sodium 136 135 - 145 mMol/L 06/07/2024 3:25 AM [facility] Potassium 3.8 3.5 - 5.0 mMol/L 06/07/2024 3:25 AM [facility] Chloride 98 98 - 107 mMol/L 06/07/2024 3:25 AM [facility] Carbon Dioxide 28 22 - 31 mMol/L 06/07/2024 3:25 AM [facility] Anion Gap 10 5 - 15 mMol/L 06/07/2024 3:25 AM [facility] Calcium 9.4 8.5 - 10.5 mg/dL 06/07/2024 3:25 AM [facility] Est Glomerular Filtration Rate - Male 77 mL/min/1. 73 m?? 06/07/2024 3:25 AM [facility] Comment: This [...] Scanlon MD CHEMISTRY ORDERABLES Performing Organization Address City/[facility]/ZIP Co de Phone Number [facility] [place] [address] * POC, GLUCOSE (06/07/2024 12:08 AM EST) Glucometer, POC 182 65 - 199 mg/dL 06/07/2024 12:09 AM EST [facility] Comment:Supplemental ranges: <140 mg/dL before meals <180 mg/dL all other times of the day. Blood CAPILLARY BLOOD / Unknown 06/07/2024 12:08 AM EST 06/07/2024 12:09 AM EST Melida Valdes MD POINT OF CARE TEST O NIKA Performing Organization Address [facility] Co de Phone Number [facility] [place] [address] * POC, GLUCOSE (06/06/2024 8:18 PM EST) Glucometer, POC 143 65 - 199 mg/dL 06/06/2024 8:19 PM EST [facility] Comment:Supplemental ranges: <140 mg/dL before meals <180 mg/dL all other times of the day. Blood CAPILLARY BLOOD / Unknown 06/06/2024 8:18 PM EST 06/06/2024 8:19 PM EST Melida Valdes MD POINT OF CARE TEST O RDERABLES Performing Organization Address City/[facility]/ZIP Co de Phone Number [facility] [place] [address] * POC, GLUCOSE (06/06/2024 3:39 PM EST) Glucometer, POC 147 65 - 199 mg/dL 06/06/2024 3:40 PM EST [facility] Comment:Supplemental ranges: <140 mg/dL before meals <180 mg/dL all other times of the day. Blood CAPILLARY BLOOD / Unknown 06/06/2024 3:39 PM EST 06/06/2024 3:40 PM EST Melida Valdes MD POINT OF CARE TEST O NIKA [facility] [place] [address] * Potassium (06/06/2024 2:37 PM EST) Potassium 4.3 3.5 - 5.0 mMol/L 06/06/2024 3:01 PM EST [facility] Blood VENOUS BLOOD SPECIMEN / Unknown Venipuncture / Unknown 06/06/2024 2:37 PM EST 06/06/2024 2:42 PM EST Shahnaz Scanlon MD CHEMISTRY ORDERABLES Performing Organization Address [facility] Co de Phone Number [facility] [place] [address] * (ABNORMAL) POC, GLUCOSE (06/06/2024 1:39 PM EST) Glucometer, POC 317(H) 65 - 199 mg/dL 06/06/2024 1:40 PM EST [facility] Comment:Supplemental ranges: <140 mg/dL before meals <180 mg/dL all other times of the day. Blood CAPILLARY BLOOD / Unknown 06/06/2024 1:39 PM EST 06/06/2024 1:41 PM EST Melida Valdes MD POINT OF CARE TEST O NIKA Performing Organization Address City/[facility]/ZIP Co de Phone Number [facility] [place] [address] * (ABNORMAL) POC, GLUCOSE (06/06/2024 11:34 AM EST) Glucometer, POC 264(H) 65 - 199 mg/dL 06/06/2024 11:35 AM EST [facility] Comment:Supplemental ranges: <140 mg/dL before meals <180 mg/dL all other times of the day. Blood CAPILLARY BLOOD / Unknown 06/06/2024 11:34 AM EST 06/06/2024 11:35 AM EST Melida Valdes MD POINT OF CARE TEST O RDBECKIE Performing Organization Address City/[facility]/ZIP Co de Phone Number [facility] [place] [address] * Potassium (06/06/2024 10:17 AM EST) Potassium 4.3 3.5 - 5.0 mMol/L 06/06/2024 10:46 AM EST [facility] Blood VENOUS BLOOD SPECIMEN / Unknown Venipuncture / Unknown 06/06/2024 10:17 AM EST 06/06/2024 10:22 AM EST Shahnaz Scanlon MD CHEMISTRY ORDERABLES Performing Organization Address [facility] Co de Phone Number [facility] [place] [address] * POC, GLUCOSE (06/06/2024 7:57 AM EST) Glucometer, POC 195 65 - 199 mg/dL 06/06/2024 8:03 AM EST [facility] Comment:Supplemental ranges: <140 mg/dL before meals <180 mg/dL all other times of the day. Blood CAPILLARY BLOOD / Unknown 06/06/2024 7:57 AM EST 06/06/2024 8:03 AM EST Melida Valdes MD POINT OF CARE TEST O RDERAPIETER Performing Organization Address City/[facility]/ZIP Co de Phone Number [facility] [place] [address] * POC, GLUCOSE (06/06/2024 6:53 AM EST) Glucometer, POC 187 65 - 199 mg/dL 06/06/2024 6:53 AM EST [facility] Comment:Supplemental ranges: <140 mg/dL before meals <180 mg/dL all other times of the day. Blood CAPILLARY BLOOD / Unknown 06/06/2024 6:53 AM EST 06/06/2024 6:54 AM EST Melida Valdes MD POINT OF CARE TEST O RDERABLES Performing Organization Address [facility]/ZIP Co de Phone Number [facility] [place] [address] * (ABNORMAL) Hemoglobin A1c (06/06/2024 3:33 AM EST) [facility] Hemoglobin A1c 7.1(H) 4.3 - 5.6 % [...] red blood cell turnover may not be telephone sales representative of glycemic control. Reference Interval: 4.3 - 5.6% 5.7 - 6.4%: Consistent with prediabetes >=6.5%: Consistent with diagnosis of diabetes mellitus Estimated Average Glucose 157 mg/dL 06/06/2024 1:01 PM EST [facility] Blood VENOUS BLOOD SPECIMEN / Unknown Venipuncture / Unknown 06/06/2024 3:33 AM EST 06/06/2024 3:48 AM EST Alejandra Baumann APRN CHEMISTRY ORDERAB LES Performing Organization Address City/[facility]/ZIP Co de Phone Number [facility] [place] [address] * Heparin (unfractionated) Level (06/06/2024 3:33 AM EST) Pathologist [facility] UF Heparin 0.36 IU/mL 06/06/2024 3:59 AM EST [facility] [...] EST Shahnaz Scanlon MD HEMATOLOGY ORDERABLE S [facility] [place] [address] * (ABNORMAL) CBC (with Diff) (06/06/2024 3:33 AM EST) Pathologist [facility] White Blood Cell 9.81(H) 4.00 - 9.50 x10(3)/mc L 06/06/2024 3:54 AM EST [facility] Red Blood Cell 4.91 4.58 - 5.54 x10(6)/mc L 06/06/2024 3:54 AM EST [facility] Hemoglobin 14.6 13.7 - 16.5 g/dL 06/06/2024 3:54 AM EST [facility] Hematocrit 45.4 40.5 - 48.5 % 06/06/2024 3:54 AM [facility] Mean Cell Volume 92.5 82.9 - 93.1 fL 06/06/2024 3:54 AM [facility] Mean Cell Hemoglobin 29.7 27.5 - 32.1 pg 06/06/2024 3:54 AM [facility] Mean Cell Hemoglobin Concentration 32.2 32.0 - 35.7 g/dL 06/06/2024 3:54 AM [facility] Platelet 199 145 - 357 x10(3)/mc L 06/06/2024 3:54 AM [facility] Mean Platelet Volume 9.5 7.6 - 12.9 fL 06/06/2024 3:54 AM [facility] RDW Standard Deviation 47.2(H) 36.0 - 45.0 fL 06/06/2024 3:54 AM [facility] RDW coefficient of variation 13.9(H) 11.4 - 13.8 % 06/06/2024 3:54 AM [facility] NRBC% auto 0.0 % 06/06/2024 3:54 AM [facility] NRBC Absolute <0.01 <0.01 x10(3)/mc L 06/06/2024 3:54 AM [facility] Neutrophil % 56.8 % 06/06/2024 3:54 AM [facility] Neutrophil Absolute (ANC) - Automated 5.57 1.70 - 6.10 x10(3)/mc L 06/06/2024 3:54 AM [facility] Lymph % 27.6 % 06/06/2024 3:54 AM [facility] Lymph Absolute 2.71 0.90 - 3.20 x10(3)/mc L 06/06/2024 3:54 AM [facility] Monocyte % 11.1 % 06/06/2024 3:54 AM [facility] Monocyte Absolute 1.09(H) 0.30 - 0.90 x10(3)/mc L 06/06/2024 3:54 AM EST [facility] Eos % 3.0 % 06/06/2024 3:54 AM EST [facility] Eos Absolute 0.29 0.00 - 0.40 x10(3)/mc L 06/06/2024 3:54 AM EST [facility] Basophil % 0.9 % 06/06/2024 3:54 AM [facility] Baso Absolute 0.09 0.00 - 0.10 x10(3)/mc L 06/06/2024 3:54 AM [facility] Immature Gran % 0.6 % 3:54 AM [facility] Immature Gran Absolute 0.06(H) 0.00 - 0.04 x10(3)/mc L 06/06/2024 3:54 AM [facility] Blood VENOUS BLOOD SPECIMEN / Unknown Venipuncture / Unknown 06/06/2024 3:33 AM EST 06/06/2024 3:48 AM EST Shahnaz Scanlon MD HEMATOLOGY ORDERABLE S [facility] [place] [address] * Magnesium (06/06/2024 3:33 AM EST) [facility] Magnesium 0.92 0.69 - 1.07 mMol/L 06/06/2024 4:17 AM EST [facility] Blood VENOUS BLOOD SPECIMEN / Unknown Venipuncture / Unknown 06/06/2024 3:33 AM EST 06/06/2024 3:47 AM EST Shahnaz Scanlon MD CHEMISTRY ORDERABLES [facility] [place] [address] * (ABNORMAL) Basic Metabolic Panel (06/06/2024 3:33 AM EST) Glucose 190 65 - 199 mg/dL 06/06/2024 4:17 AM [facility] Comment:Glucose Concentratio n >=200 mg/dL plus symptoms is consistent with Diabetes Mellitus. Blood Urea Nitrogen 27(H) 10 - 20 mg/dL 06/06/2024 4:17 AM [facility] Creatinine 1.12 0.80 - 1.50 mg/dL 06/06/2024 4:17 AM [facility] Sodium 136 135 - 145 mMol/L 06/06/2024 4:17 AM [facility] Potassium 4.0 3.5 - 5.0 mMol/L 06/06/2024 4:17 AM [facility] Chloride 97(L) 98 - 107 mMol/L 06/06/2024 4:17 AM [facility] Carbon Dioxide 26 22 - 31 mMol/L 06/06/2024 4:17 AM [facility] Anion Gap 13 5 - 15 mMol/L 06/06/2024 4:17 AM [facility] Calcium 9.1 8.5 - 10.5 mg/dL 06/06/2024 4:17 AM [facility] Est Glomerular Filtration Rate - Male 72 mL/min/1. 73 m?? 06/06/2024 4:17 AM [facility] Comment: This [...] AM EST Shahnaz Scanlon MD CHEMISTRY ORDERABLES [facility] [place] [address] * (ABNORMAL) POC, GLUCOSE (06/05/2024 10:31 PM EDT) Glucometer, POC 238(H) 65 - 199 mg/dL 06/05/2024 10:31 PM EDT [facility] Comment:Supplemental ranges: <140 mg/dL before meals <180 mg/dL all other times of the day. Blood CAPILLARY BLOOD / Unknown 06/05/2024 10:31 PM EDT 06/05/2024 10:31 PM EDT Melida Valdes MD POINT OF CARE TEST O RDERABLES Performing Organization Address City/[facility]/ZIP Co de Phone Number [facility] [place] [address] * (ABNORMAL) POC, GLUCOSE (06/05/2024 4:22 PM EDT) Glucometer, POC 205(H) 65 - 199 mg/dL 06/05/2024 4:22 PM EDT [facility] Comment:Supplemental ranges: <140 mg/dL before meals <180 mg/dL all other times of the day. Blood CAPILLARY BLOOD / Unknown 06/05/2024 4:22 PM EDT 06/05/2024 4:23 PM EDT Melida Valdes MD POINT OF CARE TEST O RDERABLES [facility] [place] [address] * (ABNORMAL) POC, GLUCOSE (06/05/2024 11:34 AM EDT) Glucometer, POC 211(H) 65 - 199 mg/dL 06/05/2024 11:34 AM EDT [facility] Comment:Supplemental ranges: <140 mg/dL before meals <180 mg/dL all other times of the day. Blood CAPILLARY BLOOD / Unknown 06/05/2024 11:34 AM EDT 06/05/2024 11:34 AM EDT Melida Valdes MD POINT OF CARE TEST O RDERABLES Performing Organization Address City/[facility]/ZIP Co de Phone Number [facility] [place] [address] * Potassium (06/05/2024 9:04 AM EDT) Potassium 4.3 3.5 - 5.0 mMol/L 06/05/2024 9:50 AM EDT [facility] Blood VENOUS BLOOD SPECIMEN / Unknown Venipuncture / Unknown 06/05/2024 9:04 AM EDT 06/05/2024 9:21 AM EDT Shahnaz Scalnon MD CHEMISTRY ORDERABLES Performing Organization Address [facility] Co de Phone Number [facility] [place] [address] * POC, GLUCOSE (06/05/2024 7:27 AM EDT) Glucometer, POC 166 65 - 199 mg/dL 06/05/2024 7:27 AM EDT [facility] Comment:Supplemental ranges: <140 mg/dL before meals <180 mg/dL all other times of the day. Blood CAPILLARY BLOOD / Unknown 06/05/2024 7:27 AM EDT 06/05/2024 7:27 AM EDT Melida Valdes MD POINT OF CARE TEST O RDBECKIE Performing Organization Address City/[facility]/ZIP Co de Phone Number [facility] [place] [address] * Heparin (unfractionated) Level (06/05/2024 3:44 AM EDT) UF Heparin 0.44 IU/mL 06/05/2024 4:07 AM EDT [facility] Comment: Heparin [...] EDT Shahnaz Scanlon MD HEMATOLOGY ORDERABLE S [facility] [place] [address] * (ABNORMAL) CBC (with Diff) (06/05/2024 3:44 AM EDT) White Blood Cell 10.83(H) 4.00 - 9.50 x10(3)/mc L 06/05/2024 3:56 AM EDT [facility] Red Blood Cell 5.07 4.58 - 5.54 x10(6)/mc L 06/05/2024 3:56 AM EDT [facility] Hemoglobin 15.3 13.7 - 16.5 g/dL 06/05/2024 3:56 AM EDT [facility] Hematocrit 46.8 40.5 - 48.5 % 06/05/2024 3:56 AM EDT [facility] Mean Cell Volume 92.3 82.9 - 93.1 fL 06/05/2024 3:56 AM [facility] Mean Cell Hemoglobin 30.2 27.5 - 32.1 pg 06/05/2024 3:56 AM [facility] Mean Cell Hemoglobin Concentration 32.7 32.0 - 35.7 g/dL 06/05/2024 3:56 AM [facility] Platelet 219 145 - 357 x10(3)/mc L 06/05/2024 3:56 AM [facility] Mean Platelet Volume 9.4 7.6 - 12.9 fL 06/05/2024 3:56 AM [facility] RDW Standard Deviation 46.7(H) 36.0 - 45.0 fL 06/05/2024 3:56 AM [facility] RDW coefficient of variation 13.9(H) 11.4 - 13.8 % 06/05/2024 3:56 AM [facility] NRBC% auto 0.0 % 06/05/2024 3:56 AM [facility] NRBC Absolute <0.01 <0.01 x10(3)/mc L 06/05/2024 3:56 AM [facility] Neutrophil % 61.5 % 06/05/2024 3:56 AM [facility] Neutrophil Absolute (ANC) - Automated 6.65(H) 1.70 - 6.10 x10(3)/mc L 06/05/2024 3:56 AM [facility] Lymph % 24.0 % 06/05/2024 3:56 AM [facility] Lymph Absolute 2.60 0.90 - 3.20 x10(3)/mc L 06/05/2024 3:56 AM [facility] Monocyte % 10.9 % 06/05/2024 3:56 AM [facility] Monocyte Absolute 1.18(H) 0.30 - 0.90 x10(3)/mc L 06/05/2024 3:56 AM EDT [facility] Eos % 2.2 % 06/05/2024 3:56 AM EDT [facility] Eos Absolute 0.24 0.00 - 0.40 x10(3)/mc L 06/05/2024 3:56 AM EDT [facility] Basophil % 0.8 % 06/05/2024 3:56 AM EDT [facility] Baso Absolute 0.09 0.00 - 0.10 x10(3)/mc L 06/05/2024 3:56 AM EDT [facility] Immature Gran % 0.6 % 3:56 AM EDT [facility] Immature Gran Absolute 0.07(H) 0.00 - 0.04 x10(3)/mc L 06/05/2024 3:56 AM EDT [facility] Blood VENOUS BLOOD SPECIMEN / Unknown Venipuncture / Unknown 06/05/2024 3:44 AM EDT 06/05/2024 3:50 AM EDT Shahnaz Scanlon MD HEMATOLOGY ORDERABLE S [facility] [place] [address] * Magnesium (06/05/2024 3:44 AM EDT) [facility] Magnesium 0.92 0.69 - 1.07 mMol/L 06/05/2024 4:20 AM EDT [facility] Blood VENOUS BLOOD SPECIMEN / Unknown Venipuncture / Unknown 06/05/2024 3:44 AM EDT 06/05/2024 3:50 AM EDT Shahnaz Scanlon MD CHEMISTRY ORDERABLES [facility] [place] [address] * (ABNORMAL) Basic Metabolic Panel (06/05/2024 3:44 AM EDT) Glucose 155 65 - 199 mg/dL 06/05/2024 4:20 AM [facility] Comment:Glucose Concentratio n >=200 mg/dL plus symptoms is consistent with Diabetes Mellitus. Blood Urea Nitrogen 25(H) 10 - 20 mg/dL 06/05/2024 4:20 AM [facility] Creatinine 1.16 0.80 - 1.50 mg/dL 06/05/2024 4:20 AM [facility] Sodium 136 135 - 145 mMol/L 06/05/2024 4:20 AM [facility] Potassium 3.9 3.5 - 5.0 mMol/L 06/05/2024 4:20 AM [facility] Chloride 95(L) 98 - 107 mMol/L 06/05/2024 4:20 AM [facility] Carbon Dioxide 29 22 - 31 mMol/L 06/05/2024 4:20 AM [facility] Anion Gap 12 5 - 15 mMol/L 06/05/2024 4:20 AM [facility] Calcium 9.2 8.5 - 10.5 mg/dL 06/05/2024 4:20 AM [facility] Est Glomerular Filtration Rate - Male 69 mL/min/1. 73 m?? 06/05/2024 4:20 AM [facility] Comment: This patient's estimated [...] Scanlon MD CHEMISTRY ORDERABLES Performing Organization Address [facility]/ZIP Co de Phone Number [facility] [place] [address] * Potassium (06/04/2024 10:34 PM EDT) Potassium 3.7 3.5 - 5.0 mMol/L 06/04/2024 11:03 PM EDT [facility] Blood VENOUS BLOOD SPECIMEN / Unknown Venipuncture / Unknown 06/04/2024 10:34 PM EDT 06/04/2024 10:39 PM EDT Shahnaz Scanlon MD CHEMISTRY ORDERABLES Performing Organization Address [facility] Co de Phone Number [facility] [place] [address] * POC, GLUCOSE (06/04/2024 7:43 PM EDT) Glucometer, POC 175 65 - 199 mg/dL 06/04/2024 7:43 PM EDT [facility] Comment:Supplemental ranges: <140 mg/dL before meals <180 mg/dL all other times of the day. Blood CAPILLARY BLOOD / Unknown 06/04/2024 7:43 PM EDT 06/04/2024 7:43 PM EDT Melida Valdes MD POINT OF CARE TEST O RDERABLES Performing Organization Address City/[facility]/ZIP Co de Phone Number [facility] [place] [address] * Potassium (06/04/2024 4:35 PM EDT) Potassium 4.0 3.5 - 5.0 mMol/L 06/04/2024 5:32 PM EDT [facility] Blood VENOUS BLOOD SPECIMEN / Unknown Venipuncture / Unknown 06/04/2024 4:35 PM EDT 06/04/2024 4:40 PM EDT Shahnaz Scanlon MD CHEMISTRY ORDERABLES Performing Organization Address [facility]/ZIP Co de Phone Number [facility] [place] [address] * POC, GLUCOSE (06/04/2024 3:26 PM EDT) Glucometer, POC 154 65 - 199 mg/dL 06/04/2024 3:26 PM EDT [facility] Comment:Supplemental ranges: <140 mg/dL before meals <180 mg/dL all other times of the day. Blood CAPILLARY BLOOD / Unknown 06/04/2024 3:26 PM EDT 06/04/2024 3:27 PM EDT Melida Valdes MD POINT OF CARE TEST O RDERABLES Performing Organization Address [facility] Co de Phone Number [facility] [place] [address] * POC, GLUCOSE (06/04/2024 11:09 AM EDT) Glucometer, POC 188 65 - 199 mg/dL 06/04/2024 11:09 AM EDT [facility] Comment:Supplemental ranges: <140 mg/dL before meals <180 mg/dL all other times of the day. Blood CAPILLARY BLOOD / Unknown 06/04/2024 11:09 AM EDT 06/04/2024 11:09 AM EDT Delroy Fofana MD POINT OF CARE TEST ORDERABLES Performing Organization Address [facility] Co de Phone Number [facility] [place] [address] * Heparin (unfractionated) Level (06/04/2024 10:41 AM EDT) UF Heparin 0.43 IU/mL 06/04/2024 11:06 AM EDT [facility] Comment: Heparin [...] MD HEMATOLOGY ORDERABLE S Performing Organization Address City/[facility]/ZIP Co de Phone Number [facility] [place] [address] * Potassium (06/04/2024 10:41 AM EDT) [facility] Potassium 4.0 3.5 - 5.0 mMol/L 06/04/2024 11:11 AM EDT [facility] Blood VENOUS BLOOD SPECIMEN / Unknown Venipuncture / Unknown 06/04/2024 10:41 AM EDT 06/04/2024 10:46 AM EDT Shahnaz Scanlon MD CHEMISTRY ORDERABLES Performing Organization Address City/[facility]/ZIP Co de Phone Number [facility] [place] [address] * POC, GLUCOSE (06/04/2024 7:11 AM EDT) Glucometer, POC 182 65 - 199 mg/dL 06/04/2024 7:12 AM EDT [facility] Comment:Supplemental ranges: <140 mg/dL before meals <180 mg/dL all other times of the day. Blood CAPILLARY BLOOD / Unknown 06/04/2024 7:11 AM EDT 06/04/2024 7:12 AM EDT Delroy Fofana MD POINT OF CARE TEST ORDERABLES Performing Organization Address [facility] Co de Phone Number [facility] [place] [address] * Heparin (unfractionated) Level (06/04/2024 4:38 AM EDT) UF Heparin 0.41 IU/mL 06/04/2024 5:19 AM EDT [facility] Comment: Heparin [...] MD HEMATOLOGY ORDERABLE S Performing Organization Address [facility]/ZIP Co de Phone Number [facility] [place] [address] * (ABNORMAL) CBC (with Diff) (06/04/2024 4:38 AM EDT) White Blood Cell 11.45(H) 4.00 - 9.50 x10(3)/mc L 06/04/2024 5:12 AM [facility] Red Blood Cell 5.35 4.58 - 5.54 x10(6)/mc L 06/04/2024 5:12 AM [facility] Hemoglobin 16.0 13.7 - 16.5 g/dL 06/04/2024 5:12 AM [facility] Hematocrit 49.6(H) 40.5 - 48.5 % 06/04/2024 5:12 AM [facility] Mean Cell Volume 92.7 82.9 - 93.1 fL 06/04/2024 5:12 AM [facility] Mean Cell Hemoglobin 29.9 27.5 - 32.1 pg 06/04/2024 5:12 AM [facility] Mean Cell Hemoglobin Concentration 32.3 32.0 - 35.7 g/dL 06/04/2024 5:12 AM [facility] Platelet 222 145 - 357 x10(3)/mc L 06/04/2024 5:12 AM [facility] Mean Platelet Volume 9.5 7.6 - 12.9 fL 06/04/2024 5:12 AM [facility] RDW Standard Deviation 47.6(H) 36.0 - 45.0 fL 06/04/2024 5:12 AM [facility] RDW coefficient of variation 14.1(H) 11.4 - 13.8 % 06/04/2024 5:12 AM [facility] NRBC% auto 0.0 % 06/04/2024 5:12 AM [facility] NRBC Absolute <0.01 <0.01 x10(3)/mc L 06/04/2024 5:12 AM [facility] Neutrophil % 60.3 % 06/04/2024 5:12 AM [facility] Neutrophil Absolute (ANC) - Automated 6.91(H) 1.70 - 6.10 x10(3)/mc L 06/04/2024 5:12 AM EDT [facility] Lymph % 25.1 % 06/04/2024 5:12 AM EDT [facility] Lymph Absolute 2.87 0.90 - 3.20 x10(3)/mc L 06/04/2024 5:12 AM EDT [facility] Monocyte % 10.6 % 06/04/2024 5:12 AM EDT [facility] Monocyte Absolute 1.21(H) 0.30 - 0.90 x10(3)/mc L 06/04/2024 5:12 AM EDT [facility] Eos % 2.8 % 06/04/2024 5:12 AM EDT [facility] Eos Absolute 0.32 0.00 - 0.40 x10(3)/mc L 06/04/2024 5:12 AM EDT [facility] Basophil % 0.7 % 06/04/2024 5:12 AM EDT [facility] Baso Absolute 0.08 0.00 - 0.10 x10(3)/mc L 06/04/2024 5:12 AM EDT [facility] Immature Gran % 0.5 % 5:12 AM EDT [facility] Immature Gran Absolute 0.06(H) 0.00 - 0.04 x10(3)/mc L 06/04/2024 5:12 AM EDT [facility] Blood VENOUS BLOOD SPECIMEN / Unknown Venipuncture / Unknown 06/04/2024 4:38 AM EDT 06/04/2024 5:07 AM EDT Shahnaz Scanlon MD HEMATOLOGY ORDERABLE S [facility] [place] [address] * Magnesium (06/04/2024 4:38 AM EDT) Magnesium 0.84 0.69 - 1.07 mMol/L 06/04/2024 5:35 AM EDT [facility] Blood VENOUS BLOOD SPECIMEN / Unknown Venipuncture / Unknown 06/04/2024 4:38 AM EDT 06/04/2024 5:07 AM EDT Shahnaz Scanlon MD CHEMISTRY ORDERABLES [facility] [place] [address] * (ABNORMAL) Basic Metabolic Panel (06/04/2024 4:38 AM EDT) Glucose 118 65 - 199 mg/dL 06/04/2024 5:35 AM EDT [facility] Comment:Glucose Concentratio n >=200 mg/dL plus symptoms is consistent with Diabetes Mellitus. Blood Urea Nitrogen 22(H) 10 - 20 mg/dL 06/04/2024 5:35 AM EDT [facility] Creatinine 1.22 0.80 - 1.50 mg/dL 06/04/2024 5:35 AM EDT [facility] Sodium 137 135 - 145 mMol/L 06/04/2024 5:35 AM EDT [facility] Potassium 3.6 3.5 - 5.0 mMol/L 06/04/2024 5:35 AM [facility] Chloride 97(L) 98 - 107 mMol/L 06/04/2024 5:35 AM EDT [facility] Carbon Dioxide 29 22 - 31 mMol/L 06/04/2024 5:35 AM EDT [facility] Anion Gap 11 5 - 15 mMol/L 06/04/2024 5:35 AM EDT [facility] Calcium 9.0 8.5 - 10.5 mg/dL 06/[facility] Glomerular Filtration Rate - Male 65 mL/min/1. 73 m?? 06/04/2024 5:35 AM EDT [facility] [...] AM EDT Shahnaz Scanlon MD CHEMISTRY ORDERABLES [facility] [place] [address] * Heparin (unfractionated) Level (06/03/2024 8:58 PM EDT) UF Heparin 0.27 IU/mL 06/03/2024 9:33 PM EDT [facility] Comment: Heparin [...] EDT Shahnaz Scanlon MD HEMATOLOGY ORDERABLE S [facility] [place] [address] * POC, GLUCOSE (06/03/2024 8:05 PM EDT) Glucometer, POC 136 65 - 199 mg/dL 06/03/2024 8:05 PM EDT [facility] Comment:Supplemental ranges: <140 mg/dL before meals <180 mg/dL all other times of the day. Blood CAPILLARY BLOOD / Unknown 06/03/2024 8:05 PM EDT 06/03/2024 8:05 PM EDT Delroy Fofana MD POINT OF CARE TEST ORDERABLES Performing Organization Address City/[facility]/ZIP Co de Phone Number [facility] [place] [address] * POC, GLUCOSE (06/03/2024 5:48 PM EDT) Glucometer, POC 191 65 - 199 mg/dL 06/03/2024 5:48 PM EDT [facility] Comment:Supplemental ranges: <140 mg/dL before meals <180 mg/dL all other times of the day. Blood CAPILLARY BLOOD / Unknown 06/03/2024 5:48 PM EDT 06/03/2024 5:49 PM EDT Delroy Fofana MD POINT OF CARE TEST ORDERABLES [facility] [place] [address] * CT Chest wo Contrast (Generic) (06/03/2024 4:33 PM EDT) WORKSTATION ID [id number] RAD Anatomical Region Laterality Modality Chest Computed Tomogra phy Impressions 06/03/2024 4:47 PM EDT Cardiomegaly. Biventricular ICD leads in place. Thank you for letting us participate in the care of this patient. ??If you are a health care provider and have any questions regarding this report, please contact the number below. ??For patients who have questions please contact the health skin care therapist that requested your imaging first. ? Electronically signed by: Stuart Aponte MD, [facility] ??([phone]), at 06/03/2024 4:47 PM Narrative 06/03/2024 4:47 [...] patients who have questions please contactthe health skin care therapist that requested your imaging first. Electronically signed by: Stuart Aponte MD, [facility]([phone]), at 06/03/2024 4:47 PM Bobby Loja MD IMG CT ORDERABLES * Carotid Duplex, Bilateral (06/03/2024 2:19 PM EDT) VB Text Report Department: Vascular Surgery Lab Patient: [id number] (GEORGE MEHTA) CPT: 37009 Referring Physician: BOBBY LOJA ?? Phone: Indications: [...] Loja MD VASCULAR ORDERABLES Performing Organization Address City/[facility] Co de Phone Number [facility] * Heparin (unfractionated) Level (06/03/2024 12:48 PM EDT) UF Heparin 0.15 IU/mL 06/03/2024 1:13 PM EDT [facility] Comment: Heparin [...] MD HEMATOLOGY ORDERABLE S Performing Organization Address City/[facility]/ZIP Co de Phone Number [facility] [place] [address] * POC, GLUCOSE (06/03/2024 11:14 AM EDT) Glucometer, POC 166 65 - 199 mg/dL 06/03/2024 11:14 AM EDT [facility] Comment:Supplemental ranges: <140 mg/dL before meals <180 mg/dL all other times of the day. Blood CAPILLARY BLOOD / Unknown 06/03/2024 11:14 AM EDT 06/03/2024 11:14 AM EDT Delroy Fofana MD POINT OF CARE TEST ORDERABLES [facility] [place] [address] * (ABNORMAL) Troponin-T, High Sensitivity 3 Hour [...] troponin value can be found in the [facility] Test Catalog Troponin - https://[facility]-.testcatalog.org/catalogs/565/files/59490 Reference: [place] Definition of Myocardial Infarction. Journal of the [place] College [employer] 2018;72:1378-4815 Troponin-T, HS 3 hr delta 06/03/2024 10:50 AM EDT [facility] Comment:Delta troponin value not calculated, sample collected outside of delta calculation time limit. Blood VENOUS BLOOD SPECIMEN / Unknown IP Care Team Draw / Unknown 06/03/2024 10:06 AM EDT 06/03/2024 10:15 AM EDT Delroy Fofana MD CHEMISTRY ORDERABLE S [facility] [place] [address] * ECHO COMPLETE W CONTRAST (06/03/2024 8:46 AM EDT) Anatomical Region Laterality Modality Cardiac Other 06/03/2024 6:52 AM EDT Narrative 06/03/2024 10:32 AM EDT [address] [place] [address] ? Echocardiogram Report Name: GEORGE MEHTA Raad ?Study Date: 06/03/2024 06:52 AM : 1955 ? Height: 168 cm ? Account: [id number] Age: 69 yrs ? Weight: 102 kg Gender: Male ?BSA: 2.1 m2 Ordering Physician: SHAHNAZ SCANOLN Referring Physician: NEHAL QUINTERO Performed By: Sara Kebede RDCS Reason For Study: STEMI Exam Location: [facility]. Interpretation Summary -Left ventricular systolic [...] fellow performed study of today's date). Procedure Complete-25872. Image enhancement Optison was used for left [...] Procedure Note Jonnie Jordan MD - 06/03/[address] [place] [address] Echocardiogram Report Name: GEORGE MEHTA Study Date: 406:52 AM : 1955 Height: 168 cm Account: [id number] Age: 69 yrs Weight: 102 kg Gender: Male BSA: 2.1 m2 Ordering Physician: SHAHNAZ SCANLON Referring Physician: NEHAL QUINTERO Performed By: Sara Kebede RDCS Reason For Study: STEMI Exam Location: [facility]. Interpretation Summary -Left ventricular systolic [...] a fellow performed study of's date). Procedure Complete-51893. Image enhancement Optison was used for left [...] troponin value can be found in the [facility] Test Catalog Troponin - https://[facility].testcatalog.org/catalogs/565/files/31696 Reference: [place] Definition of Myocardial Infarction. Journal of the [place] College [employer]iology 2018;72:4741-8213 Troponin-T, HS 1 hr delta 5 ng/L [...] ORDERABLE S [facility] [place] [address] * POC, GLUCOSE (06/03/2024 7:54 AM EDT) [facility] Signature Glucometer, POC 195 65 - 199 mg/dL 06/03/2024 7:55 AM EDT [facility] Comment:Supplemental ranges: <140 mg/dL before meals <180 mg/dL all other times of the day. Blood CAPILLARY BLOOD / Unknown 06/03/2024 7:54 AM EDT 06/03/2024 7:55 AM EDT Nuha Rojo MD POINT OF CARE TEST ORDERABLES [facility] [place] [address] * (ABNORMAL) Troponin-T, High Sensitivity (06/03/2024 7:39 [...] troponin value can be found in the [facility] Test Catalog Troponin - https://[facility]-.testcatalog.org/catalogs/565/files/70589 Reference: [place] Definition of Myocardial Infarction. Journal of the [place] College [employer]iology 2018;72:0211-5976 Blood VENOUS BLOOD SPECIMEN / Unknown Care Team Draw / Unknown 06/03/2024 7:39 AM EDT 06/03/2024 7:48 AM EDT Delroy Fofana MD CHEMISTRY ORDERABLE S [facility] [place] [address] * (ABNORMAL) Troponin-T, High Sensitivity 3 Hour (06/03/2024 5:11 AM EDT) Troponin-T, High Sensitivity 254(H) <=22 ng/L 06/03/2024 5:49 AM EDT [facility] [...] troponin value can be found in the [facility] Test Catalog Troponin - https://[facility]-.testcatalog.org/catalogs/565/files/43682 Reference: [place] Definition of Myocardial Infarction. Journal of the [place] College of [employer]iology 2018;72:4707-4219 Troponin-T, HS 3 hr delta 46 ng/L 06/03/2024 5:49 AM EDT [facility] Comment:The 3 hour Troponin T delta value is the absolute difference between the Troponin T concentrations of the initial and subsequent sample collected between 2 h: 45 min and 6 h following the initial collection Blood VENOUS BLOOD SPECIMEN / Unknown IP Care Team Draw / Unknown 06/03/2024 5:11 AM EDT 06/03/2024 5:20 AM EDT Shahnaz Scanlon MD CHEMISTRY ORDERABLES [facility] [place] [address] * (ABNORMAL) Troponin-T, High Sensitivity 1 Hour (06/03/2024 3:07 AM EDT) Troponin-T, High Sensitivity 218(H) <=22 ng/L 06/03/2024 3:39 AM EDT [facility] [...] troponin value can be found in the [facility] Test Catalog Troponin - https://[facility]-.testcatalog.org/catalogs/565/files/68007 Reference: [place] Definition of Myocardial Infarction. Journal of the [place] College of Cardiology 2018;72:4567-4500 Troponin-T, HS 1 hr delta 10 ng/L 06/03/2024 3:39 AM EDT [facility] [...] AM EDT Shahnaz Scanlon [place] [address] * XR Chest One View (06/03/2024 2:41 AM EDT) WORKSTATION ID [id number] RAD Anatomical Region Laterality Modality Chest N/A Digital Radiogra phy Impressions 06/03/2024 3:06 AM EDT No radiographically evident acute cardiopulmonary process. Thank you for letting us participate in the care of this patient. ??If you are a health care provider and have any questions regarding this report, please contact the number below. ??For patients who have questions please contact the health skin care therapist that requested your imaging first. ? Narrative [...] patients who have questions please contactthe health skin care therapist that requested your imaging first. Electronically signed by: Corazon Mauro MD, [facility]([phone]), at 06/03/2024 3:06 AM Shahnaz Scanlon MD IMG DX ORDERABLES * Heparin (unfractionated) Level (06/03/2024 2:13 AM EDT) UF Heparin 0.56 IU/mL 06/03/2024 4:13 AM EDT [facility] Comment: Heparin [...] MD HEMATOLOGY ORDERABLE S Performing Organization Address City/[facility]/ZIP Co de Phone Number [facility] [place] [address] * (ABNORMAL) Troponin-T, High Sensitivity (06/03/2024 2:13 AM EDT) Troponin-T, High Sensitivity Initial 208(H) <=22 ng/L 06/03/2024 3:02 AM EDT [facility] troponin value can be found in the [facility] Test Catalog Troponin - https://[facility].testcatalog.org/catalogs/565/files/98215 Reference: [place] Definition of Myocardial Infarction. Journal of the [place] College of Cardiology 2018;72:9548-0961 Blood VENOUS BLOOD SPECIMEN / Unknown IP Care Team Draw / Unknown 06/03/2024 2:13 AM EDT 06/03/2024 2:32 AM EDT Shahnaz Scanlon MD CHEMISTRY ORDERABLES Performing Organization Address City/[facility]/ZIP Co de Phone Number [facility] [place] [address] * Magnesium (06/03/2024 2:13 AM EDT) Magnesium 0.86 0.69 - 1.07 mMol/L 06/03/2024 3:02 AM EDT [facility] Blood VENOUS BLOOD SPECIMEN / Unknown IP Care Team Draw / Unknown 06/03/2024 2:13 AM EDT 06/03/2024 2:32 AM EDT Shahnaz Scanlon MD CHEMISTRY ORDERABLES [facility] [place] [address] * Basic Metabolic Panel (06/03/2024 2:13 AM EDT) Glucose 126 65 - 199 mg/dL 06/03/2024 3:02 AM EDT [facility] Comment:Glucose Concentratio n >=200 mg/dL plus symptoms is consistent with Diabetes Mellitus. Blood Urea Nitrogen 20 10 - 20 mg/dL [facility]24 [facility] Creatinine 1.13 0.80 - 1.50 mg/dL 06/03/2024 3:02 AM [facility] Sodium 139 135 - 145 mMol/L 06/03/2024 3:02 AM [facility] Potassium 4.2 3.5 - 5.0 mMol/L 06/03/2024 3:02 AM [facility] Chloride 101 98 - 107 mMol/L 06/03/2024 [facility] Carbon Dioxide 26 22 - 31 mMol/L 06/03/2024 [facility] Anion Gap 12 5 - 15 mMol/L 06/03/2024 3:02 AM [facility] Calcium 9.8 8.5 - 10.5 mg/dL 06/03/2024 3:[facility] Est Glomerular Filtration Rate - Male 71 mL/min/1. 73 m?? 06/03/2024 3:02 AM EDT [facility] AM EDT Shahnaz Scanlon MD CHEMISTRY ORDERABLES [facility] [place] [address] * (ABNORMAL) CBC (with Diff) (06/03/2024 2:13 AM EDT) White Blood Cell 11.16(H) 4.00 - 9.50 x10(3)/mc L 06/03/2024 2:37 AM EDT [facility] Red Blood Cell 5.09 4.58 - 5.54 x10(6)/mc L 06/03/2024 2:37 AM EDT [facility] Hemoglobin 15.0 13.7 - 16.5 g/dL 06/03/2024 2:37 AM EDT [facility] Hematocrit 47.4 40.5 - 48.5 % 06/03/2024 2:37 AM EDT [facility] Mean Cell Volume 93.1 82.9 - 93.1 fL 06/03/2024 2:37 AM EDT [facility] Mean Cell Hemoglobin 29.5 27.5 - 32.1 pg 06/03/2024 2:37 AM EDT [facility] Mean Cell Hemoglobin Concentration 31.6(L) 32.0 - 35.7 g/dL 06/03/2024 2:37 AM [facility] Platelet 217 145 - 357 x10(3)/mc L 06/03/2024 2:37 AM [facility] Mean Platelet Volume 9.5 7.6 - 12.9 fL 06/03/2024 2:37 AM [facility] RDW Standard Deviation 49.0(H) 36.0 - 45.0 fL 06/03/2024 2:37 AM [facility] RDW coefficient of variation 14.1(H) 11.4 - 13.8 % 06/03/2024 2:37 AM [facility] NRBC% auto 0.0 % 06/03/2024 2:37 AM [facility] NRBC Absolute <0.01 <0.01 x10(3)/mc L 06/03/2024 2:37 AM [facility] Neutrophil % 58.4 % 06/03/2024 2:37 AM [facility] Neutrophil Absolute (ANC) - Automated 6.51(H) 1.70 - 6.10 x10(3)/mc L 06/03/2024 2:37 AM [facility] Lymph % 29.9 % 06/03/2024 2:37 AM [facility] Lymph Absolute 3.34(H) 0.90 - 3.20 x10(3)/mc L 06/03/2024 2:37 AM [facility] Monocyte % 8.1 % 06/03/2024 2:37 AM [facility] Monocyte Absolute 0.90 0.30 - 0.90 x10(3)/mc L 06/03/2024 2:37 AM [facility] Eos % 2.4 % 06/03/2024 2:37 AM [facility] Eos Absolute 0.27 0.00 - 0.40 x10(3)/mc L 06/03/2024 2:37 AM EDT [facility] Basophil % 0.8 % 06/03/2024 2:37 AM EDT [facility] Baso Absolute 0.09 0.00 - 0.10 x10(3)/mc L 06/03/2024 2:37 AM EDT [facility] Immature Gran % 0.4 % 2:37 AM EDT [facility] Immature Gran Absolute 0.05(H) 0.00 - 0.04 x10(3)/mc L 06/03/2024 2:37 AM EDT [facility] Blood VENOUS BLOOD SPECIMEN / Unknown IP Care Team Draw / Unknown 06/03/2024 2:13 AM EDT 06/03/2024 2:31 AM EDT Shahnaz Scanlon MD HEMATOLOGY ORDERABLE S Performing Organization Address City/State/[facility] Co de Phone Number [facility] [place] [address] * Lipid Panel (Reflex Direct LDL) (06/03/2024 2:13 AM EDT) Cholesterol, Total 76 mg/dL 06/03/2024 3:02 AM [facility] Comment: Desirable: < 200 [...] 2:13 AM EDT 06/03/2024 2:32 AM EDT [facility] - 06/03/2024 3:02 AM EDT [...] ACC/AHA Guidelines (most recently Bruce et al. [facility] 05/07/22): * For individuals with atherosclerotic cardiovascular [...] Scanlon MD CHEMISTRY ORDERABLES Performing Organization Address [facility] Co de Phone Number [facility] [place] [address] * (ABNORMAL) APTT (06/03/2024 2:13 AM EDT) Partial Thromboplastin Time 105(HHH) 25 - 37 sec 06/03/2024 4:13 AM EDT [facility] Comment: The [...] MD HEMATOLOGY ORDERABLE S Performing Organization Address [facility]/ZIP Co de Phone Number [facility] [place] [address] * Prothrombin Time (06/03/2024 2:13 AM EDT) Prothrombin Time 11.5 9.4 - 12.5 sec 06/03/2024 4:13 AM EDT [facility] International Normalization Ratio 1.0 <=4.9 06/03/2024 4:13 AM EDT [facility] Comment: An [...] EDT Shahnaz Scanlon MD HEMATOLOGY ORDERABLE S [facility] [place] [address] * Hepatic Function Panel (06/03/2024 2:13 AM [...] Scanlon MD CHEMISTRY ORDERABLES Performing Organization Address [facility]/ZIP Co de Phone Number [facility] [place] [address] * (ABNORMAL) pro-Brain Natriuretic Peptide (06/03/2024 2:13 AM EDT) NT-proBNP 1,628(H) <=124 pg/mL 06/03/2024 4:15 AM EDT [facility] Blood VENOUS BLOOD SPECIMEN / Unknown IP Care Team Draw / Unknown 06/03/2024 2:13 AM EDT 06/03/2024 2:32 AM EDT Shahnaz Scanlon MD CHEMISTRY ORDERABLES Performing Organization Address [facility] Co de Phone Number [facility] [place] [address] * Phosphorus (06/03/2024 2:13 AM EDT) Phosphorus 4.4 2.5 - 4.5 mg/dL 06/03/2024 3:02 AM EDT [facility] Blood VENOUS BLOOD SPECIMEN / Unknown IP Care Team Draw / Unknown 06/03/2024 2:13 AM EDT 06/03/2024 2:32 AM EDT Shahnaz Scanlon MD CHEMISTRY ORDERABLES Performing Organization Address City/[facility]/ZIP Co de Phone Number [facility] [place] [address] * EKG 12 Lead (06/03/2024 1:45 AM EDT) Ventricular rate 63 BPM MUSE SYSTEM Atrial Rate 63 BPM MUSE SYSTEM P-R Interval 168 ms MUSE SYSTEM QRS Duration 96 ms MUSE SYSTEM Q-T Interval 400 ms MUSE SYSTEM QTC Calculated (Bezet) 409 ms MUSE SYSTEM Calculated P [place] 65 degrees MUSE SYSTEM Calculated R [place] 70 degrees MUSE SYSTEM Calculated T [place] -86 degrees MUSE SYSTEM INTERPRETATION Atrial-sensed ventricular-paced rhythm Abnormal ECG No previous ECGs available I personally reviewed the tracing and edited the fellows interpretation Confirmed by fellow Sunni Agudelo ([id number]) on 06/04/2024 3:55:40 PM Confirmed by MD Tamia, Stuart Perry ([id number]) on 06/05/2024 11:46:48 AM MUSE SYSTEM 06/03/2024 1:45 AM EDT 06/05/2024 11:46 AM EDT Shahnaz Scanlon MD ECG ORDERABLES MUSE SYSTEM * CARDIAC CATHETERIZATION (06/03/2024 12:42 AM EDT) Anatomical Region Laterality Modality Other Narrative 06/04/2024 2:22 PM EDT ?[facility] ? Cardiac Catheterization/Intervention Report ? Patient Name: Tyson, George L. ? Procedure Date: 06/02/2024 ? A #: [id number] ? Primary Physician: Nuha Shen I ? Case #: [id number] ? File Name: [id number] ? Catheterization Order Number: [id number] ? [facility] ? Final Report [place], [place] ? Patient Name: ? George L. Tyson ? ID#: ?[id number] ? : ?1955 ? Procedure Date: ? June 02, 2024 ? Case #: ? [id number] ? Room: ? 5 ? Case Physician: [...] was designated as ASA Class IV. The [facility] clinical frailty ?scale is 5: Mildly Frail. ? Diagnostic Tests: ?Electrocardiography: ? EKG was assessed by ECG. EKG was Abnormal. EKG showed ST Deviation ? >= 0.5 mm. ?Medications Prior to Procedure: ? Sacubitril and Valsartan, Aspirin, Beta Erik, Statin and ? Thrombolytic (any). ? Indications for Diagnostic Cath: ?The priority of the diagnostic procedure was Emergent. The indication for ?the manager cardiac cath visit is ACS less than or equal [...] ?3.5 guiding catheter and a 3.5 Fr [place] 20 Mhz using Manual ?pullback. ??Imaging was [...] 3.5 guiding catheter and a 3.5 Fr [place] 20 Mhz using ?Manual pullback. ??Imaging was [...] Procedure Note Nuha Shen MD - 07/20/2024 [facility] Cardiac Catheterization/Intervention Report Patient Name: George Mehta Procedure Date: 06/02/2024 A #: [id number] Primary Physician: Nuha Shen I Case #: [id number] File Name: [id number] Catheterization Order Number: [id number] [facility] FinalReport [place], [place] Patient Name: George Mehta ID#:[id number] :1955 Procedure Date: June 02, 2024 Case [...] was designated as ASA Class IV. The [facility] clinicalfrailty scale is 5: Mildly Frail. Diagnostic Tests: Electrocardiography: EKG was assessed by ECG. EKG was Abnormal. EKG showed STDeviation >= 0.5 mm. Medications Prior to Procedure: Sacubitril and Valsartan, Aspirin, Beta Erik, Statin and Thrombolytic (any). Indications for Diagnostic Cath: The priority of the diagnostic procedure was Emergent. Theindication for the manager cardiac cath visit is ACS less than or equal [...] units of heparin were administered. A total [id number] of Omnipaque were opened, 84cc of Omnipaque were administered [id number] of Omnipaque were wasted. Radiation: Fluoro time [...] 3.5 guiding catheter and a 3.5 Fr [place] 20 Mhz usingManual pullback. Imaging was successful. [...] 3.5 guiding catheter and a 3.5 Fr [place] 20 Mhzusing Manual pullback. Imaging was successful. Indication: IVUS performed for pre intervention planning. Findings Pre-Intervention: scattered plaque, calcification and [id number] degrees calcification. Findings Post-Intervention: Stent not imaged [...] - 199 mg/dL 06/02/2024 11:31 PM EDT [facility] Comment:Supplemental ranges: <140 mg/dL before meals <180 mg/dL all other times of the day. Blood CAPILLARY BLOOD / Unknown 06/02/2024 11:31 PM EDT 06/02/2024 11:31 PM EDT Nuha Rojo MD POINT OF CARE TEST ORDERABLES Performing Organization Address City/State/[facility] Co de Phone Number [facility] [place] [phone] documented in this encounter Visit Diagnoses Not [...] 2100, Last dose on Fri06/23/24 at 0900, Director New Product recommended duration is 3 days., Routine Given [...] 10:46 AM EST 50 mEq sodium chloride (Barnes) 0.65 % nasal spray 1 spray 1 [...] Routine 1754 (Given - Provider: Mary Lou Laen RN) 1744 (Given - Provider: Michelle Orozco [...] Lou Lane RN) 0812 (Given - Provider: Michelel Orozco RN) 0837 (Given - Provider: Shazia [...] Comment: BG 130)1206 (Given - Provider: Michelle Orzoco RN - Comment: BG 173)1600 (Not Given [...] Reason: Patient/family refused)2020 (Patch Applied - Provider: Chritsina Myers RN) 818 (Patch Removed - Provider: [...] 2100, Last dose on Fri06/23/24 at 0900, Director New Product recommended duration is 3 days., Routine 2043 [...] oral route first line., Routine sodium chloride (Barnes) 0.65 % nasal spray 1 spray 1 [...] 6 hours upon arrival to Unit. Give AK if unable to take PO, Routine Group [...] Routine documented in this encounter Care Teams Block Cleaner Relationship Specialty Start Date End Date Mauro Berumen MD [address] [place] [address] PCP - General Family Medicine 06/02/24 documented as of this encounter
--- OUTSIDE RECORDS SUMMARY | 2024-08-09 10:58 | XMS_ITS | Encounter Summary ---
Author Organization [facility] Address [facility] [place] [address] Care Team Providers Care Director Radiation Oncology Name Role Phone Mauro Berumen MD Primary Care Provider [phone] Encounter Details Date Type Department Care Team (Late st Contact Info) Description 06/03/2024 Orders Only Cardiology [facility] [place] [id number] Unknown None Social History Tobacco Use Types Packs/Day Years Used Date Smoking Tobacco: Every Day Cigarettes Smokeless Tobacco: Never [facility] Utilities Answer Date Recorded In the past 12 months has th e electric, gas, oil, or water orangutrans threatened to shut off services in your [...] any time in the past 12 m [facility], were you homeless or living in a long term (including now)? No 06/03/2024 DH IPV Inpatient [...] AM EDT Narrative 06/03/2024 10:32 AM EDT [address] [place] [address] ? Echocardiogram Report Name: ARTURO NICHOLS ?Study Date: 06/03/2024 02:23 AM : 1955 Age: 69 yrs Gender: Male Performed By: Sascha Silva MD Reason For Study: STEMI Interpreting Fellow: Sascha Silva. Interpretation Summary Limited echo performed by fellow mixer diamond powder to assess LV function. Left ventricle is mild to moderately dilated. Left ventricular ejection fraction is estimated visually at 25%. There is global dyskinesia with mid-basilar posterior-posterolateral akinesis. Right ventricle is not well seen. RV systolic function is probably normal. There is no prior echo for comparison. Procedure Limited - 12395. Suboptimal quality. Ventricular paced. Left Ventricle Left [...] Note Jonnie Jordan MD - 06/03/2024 [address] [place] [address] Echocardiogram Report Name: ARTURO NICHOLS Study Date: 06/03/2024 02:23AM : 1955 Age: 69 yrs Gender: Male Performed By: Sascha Silva MD Reason For Study: STEMI Interpreting Fellow: Sascha Silva. Interpretation Summary Limited echo performed by fellow mixer diamond powder to assess LV function. Left ventricle is mild to moderately dilated. Left ventricular ejectionfraction is estimated visually at 25%. There is global dyskinesia withmid-basilar posterior-posterolateral akinesis. Right ventricle is not well seen. RV systolic function is probablynormal. There is no prior echo for comparison. Procedure Limited - [id number]. Suboptimal quality. Ventricular paced. Left Ventricle Left [...] on filedocumented in this encounter Care Teams Director Radiation Oncology Relationship Specialty Start Date End Date Mauro Berumen MD [address] [place] [address] PCP - General Family Medicine 06/02/24 documented as of this encounter
--- OUTSIDE RECORDS SUMMARY | 2024-08-09 10:58 | XMS_ITS | Encounter Summary ---
Author Organization [facility] Address [facility] [place] [address] Care Team Providers Care Power Builder Developer Name Role Phone Mauro Berumen MD Primary Care Provider [phone] Encounter Details Date Type Department Care Team (Late st Contact Info) Description 06/08/2024 Ophth [place] [address] Yumiko De La Torre, COT Social History Tobacco Use Types Packs/Day Years Used Date Smoking Tobacco: Every Day Cigarettes Smokeless Tobacco: Never [facility] Utilities Answer Date Recorded In the [...] any time in the past 12 m [facility], were you homeless or [...] on filedocumented in this encounter Care Teams Power Builder Developer Relationship Specialty Start Date End Date Mauro Berumen MD [address] [place] [address] PCP - General Family Medicine 06/02/24 documented as of this encounter
--- OUTSIDE RECORDS SUMMARY | 2024-08-09 10:58 | XMS_ITS | Encounter Summary ---
Author Organization [facility] [place] [address] Care Team Providers Care Byproduct Engineer Name Role Phone Mauro Berumen MD Primary Care Provider [phone] Reason for Visit * Auth/Cert Specialty Diagnoses / Procedures Referred By Carroll t Referred To Contact Diagnoses STEMI (ST elevation myocardial infarction) STEMI Procedures CARDIAC CATHETERIZATION EMERGENCY Delroy Monterroso MD [facility] [place] [address] [place] [address] [facility] Referral ID Status Reason Start Date Expiration Date Visits Re quested Visits Authorized [id number] 1 1 Encounter Details Date Type Department Care Team (Late st Contact Info) Description 06/13/2024 9:00 AM EST - 06/13/2024 10:00 AM EST Surgery [place] [address] Nuha Shen MD [facility] [place] [address] CARDIAC CATHETERIZATION Social History Tobacco Use Types Packs/Day Years Used Date Smoking Tobacco: Every Day Cigarettes Smokeless Tobacco: Never Tobacco Cessation:Ready to Q uit: No; Counseling Given: Yes [facility] Utilities Answer Date Recorded In the past 12 months has [employer], gas, oil, or water company threatened to [...] were you homeless or living in a correction (including now)? No 06/03/2024 DH IPV Inpatient [...] Patient Age: 69 y.o. Birthdate: 1955 Language: Nepali Race: Choose not to Disclose Ethnicity: Not nor Admit Date: 06/02/2024 Discharge Date: 06/21/2024 Attending Physician: Bobby Loja MD Follow-up Recommendations for Providers: Please continue routine management of cardiovascular risk factors including blood pressure, lipids,glucose, etc. Please note any changes to medications. Patient to follow up with PCP, Mauro Berumen MD, in 1-2 weeks. Patient to follow up with Crm Marketing Specialist, Kristen Cardenas in 2-3 weeks. Patient to follow up with Cardiac Surgeon, Dr. Bobby Loja, in 4 wks. Inpatient Provider Contact Information: [facility] Section of [place]iac [place] [facility] [address] FAX [phone] Discharge Diagnoses (Hospital Problems) Primary Diagnoses: STEMI [...] (WRVU 33.75) performed by Bobby Loja MD [facility] OR PRO CABG, ARTERY-VEIN, TWO N/A 06/14/2024 @CABG, TWO VENOUS GRAFTS & ARTERIAL GRAFT (WRVU 7.93) performed by Bobby Loja MD at [facility] OR PRO ENDOSCOPY W/VIDEO-ASST VEIN HARVEST, CABG N/A 06/14/2024 ENDOSCOPIC HARVEST VEIN(S) FOR CABG (WRVU 0.31) performed by Bobby Loja MD at [facility] MAIN OR PRO EXC MEDIASTINAL TUMOR N/A 06/14/2024 @EXCISION OF MEDIASTINAL TUMOR (WRVU 19.55) performed by Bobby Loja MD at [facility] OR PRO INSERT INTRA-AORTIC BALLOON ASST DEVICE PERCUTANEOUS N/A 06/13/2024 @INSERTION OF IABP,PERCUTANEOUS (WRVU 4.84) performed by Nuha Shen MD at [facility] CATH LABS PRO UNLISTED CARDIAC SURG PROCEDURE N/A 06/14/2024 EXPLORATION AND OVERSEW ATRIAL APPENDAGE (WRVU 5.94) performed by Bobby Loja MD at [facility] [place] Prior To Admission Medications Medications Prior [...] y.o. male with a PMHx of previous MO s/p PCI x3, ICM/HFrEF (LVEF 30%) s/p ICD, DMII, HTN, HLD, remote melanoma, and smoker who presented to [facility] last night via EMS after developing acute, severe chest pain while watching TV. Patient was ruled in for STEMI, given TNK, ASA, plavix, heparin gtt, and sent to [facility] for coronary angiography. [facility] demonstrated severely calcified left coronary system with notable LCx 75/80% lesions and SAW TAILER OM1 with ISR with collateral retrograde filling, [...] Hospital Course: George Mehta was admitted to [facility] on 06/02/2024 via the CardiologyService with an anterior STEMI after receiving lytics at OSH. He was brought to the cytology laboratory manager which showed severely calcified left coronary system with notable LCx 75/80% lesions and SAW TAILER OM1 with ISR with collateral retrograde filling, [...] 2 tablespoons of dried fruit. Milk and qw-klcdb-uwjqa yogurt have 15 grams of carbs in a serving. A serving is 1 cup of milk or 3/4 cup (6 oz) of ek-hgync-nuvoy yogurt. Starchy vegetables have 15 grams of carbs in a serving. A serving is ?? cup of mashed potatoes or sweet potato; 1 cup winter squash; ?? of a small baked potato; ?? cup of cooked beans; or ?? cup cooked corn or green peas. Learn how much carbs to eat each day and at each meal. A dietitian or certified neurodiagnostic technologist can teach you how to keep track [...] Bobby Loja and/or the Cardiac Surgery Physician Aggregate Conveyor Operator Team may be reached at . Weight: [...] Dr. Bobby Loja. You may use a [place] Track or treadmill but avoid any pulling [...] friends, go to a movie, go to religious, etc. Heavy activities: No hunting, skiing, jogging, [...] should resume a low fat, low cholesterol, [place] [employer] Diet/Diabetic diet. Driving: No driving [...] while being managed by your PCP and/or Crm Marketing Specialist. For future medication refills, please refer to your PCP and/or Crm Marketing Specialist after your discharge from our service. Thank you REMOVE CHEST TUBE SUTURES ON OR AFTER 06/24/2024 Home oxygen therapy: N/A Follow up appointments: You should follow up with your PCP, Mauro Berumen MD, in 1-2 weeks. You should follow up with your Crm Marketing Specialist, Dr CARDENAS. You have an appointment with your Cardiac Surgeon, Dr. Bobby Loja, in 4 wks. Cardiac Rehabilitation: George Mehta was seen today regarding participation in the outpatient Phase 2 Cardiac Rehabilitation at [facility]. The patient agrees to a referral to this program. The referral will be sent at discharge and the patient should be contacted by the program within 1-2 weeks from discharge. Future Appointments and Orders Future Orders Complete By Expires Referral to Cardiac Rehab [NCE854 Custom] As directed Process Instructions: If no progress note charted, please enter Clinical details in comments. Scheduling Instructions: Questions: My question or request is: s/p CABG- cardiac rehab at [facility] Referral to Home Health [REF34 Custom] As directed Process Instructions: If no progress note charted, please enter Clinical details in comments. Scheduling Instructions: Comments: Please evaluate George Mehta for admission to Home Health. [address] [facility] [address] (home) Date of : 1955 Inpatient DOCUMENTATION FOR VNA SERVICES (INCLUDING THOSE PATIENTS WITH MEDICARE COVERAGE REQUIRINGHOME VNA SERVICES AND/OR HOSPICE SERVICES) PATIENT'S LOCATION: George Mehta [address] [facility] [address] (home) Telephone Information: Livestock Farmworker's Name: self In discussion with the attending physician, it is certified that this patient is under their care and that they, or a Nurse Practitioner, or Physician Aggregate Conveyor Operator who is working directly with them, hada [...] for services as follows: HOME HEALTH AGENCY: [facility]. [address] [place] [id number] RN orders: Cardiopulmonary assessment, incisional assessment, assess [...] issues please call the Cardiology Office at [phone] FOR MEDICARE ONLY: (please delete this section [...] As above. Signed: KEILA HANLEY APRN [facility] Section of Cardiac Surgery [facility] [address] FAX [phone] Date: 06/21/2024 CC: MD Antonino Tinajero Joshua R, PA [address] [place] [address] [place] [address] documented in this encounter Discharge Instructions * [...] 2 tablespoons of dried fruit. Milk and qi-kfkdo-nawcf yogurt have 15 grams of carbs in a serving. A serving is 1 cup of milk or 3/4 cup (6 oz) of vm-nttxu-irxfg yogurt. Starchy vegetables have 15 grams of carbs in a serving. A serving is ?? cup of mashed potatoes or sweet potato; 1 cup winter squash; ?? of a small baked potato; ?? cup of cooked beans; or ?? cup cooked corn or green peas. Learn how much carbs to eat each day and at each meal. A dietitian or certified neurodiagnostic technologist can teach you how to keep track [...] Bobby Loja and/or the Cardiac Surgery Physician Aggregate Conveyor Operator Team may be reached at . Weight: [...] Dr. Bobby Loja. You may use a [place] Track or treadmill but avoid any pulling [...] friends, go to a movie, go to religious, etc. Heavy activities: No hunting, skiing, jogging, [...] should resume a low fat, low cholesterol, [place] Heart [employer] Diet/Diabetic diet. Driving: No driving [...] while being managed by your PCP and/or Crm Marketing Specialist. For future medication refills, please refer to your PCP and/or Crm Marketing Specialist after your discharge from our service. Thank you REMOVE CHEST TUBE SUTURES ON OR AFTER 06/24/2024 Home oxygen therapy: N/A Follow up appointments: You should follow up with your PCP, Mauro Berumen MD, in 1-2 weeks. You should follow up with your Crm Marketing Specialist, Dr CARDENAS. You have an appointment with your Cardiac Surgeon, Dr. Bobby Loja, in 4 wks. Cardiac Rehabilitation: George Mehta was seen today regarding participation in the outpatient Phase 2 Cardiac Rehabilitation at [facility]. The patient agrees to a referral to [...] of your patient's venous access was performed [facility] the[facility]ascular Access Service. The following tasks [...] of your patient's venous access was performed [facility] theVascular Access Service. The following tasks [...] or weekly) [] Other * Alejandra Baumann, GRAPE CRUSHER - 06/21/2024 7:05 AM EST Follow Up [...] MARIALUISA clipping. PMH of chronic HFrEF s/p IRONER/ICD, IDDM2, HTN, HLD, remote melanoma, active smoker. [...] 2 tablespoons of dried fruit. Milk and eu-zoxdz-hfmjp yogurt have 15 grams of carbs in a serving. A serving is 1 cup of milk or 3/4 cup (6 oz) of qx-ctmoh-rrntv yogurt. Starchy vegetables have 15 grams of carbs in a serving. A serving is ?? cup of mashed potatoes or sweet potato; 1 cup winter squash; ?? of a small baked potato; ?? cup of cooked beans; or ?? cup cooked corn or green peas. Learn how much carbs to eat each day and at each meal. A dietitian or certified neurodiagnostic technologist can teach you how to keep track [...] cheese, and peanut butter. Alejandra Baumann APRN [facility] Endocrinology Diabetes Management Pager [phone] Weekends please page [phone] * Eric Packer PA - 06/20/2024 7:44 AM EST Cardiac Surgery Progress Note George Mehta is a 69 y.o. male with a history of CAD s/p multiple PCI who presented with an anterior STEMI and was given lytics. Cath showed MV CAD without culprit vessel. He is now 6 Days Post-OpCABGx3 and MARIALUISA clipping. PMH of chronic HFrEF s/p IRONER/ICD, IDDM2, HTN, HLD, remote melanoma, active smoker. 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 06/20/2024 Between the hours of 1800 - 0600 and on the weekends please page [phone]. * Alejandra Baumann, JOSÉ ANTONIO - 06/20/2024 7:21 AM EST Follow Up Diabetes Consult Patient Interview Blood glucose values and insulin use reviewed. clean rice grader and reel tender BG to 59 despite decrease in glargine [...] MARIALUISA clipping. PMH of chronic HFrEF s/p IRONER/ICD, IDDM2, HTN, HLD, remote melanoma, active smoker. clean rice grader and reel tender BG to 59 despite decrease in glargine [...] based on ISF 20 Alejandra Baumann APRN [facility] Endocrinology Diabetes Management Pager [phone] Weekends please page [phone] Insulin Discharge Instructions Preliminary Diabetes Discharge Instructions [...] 2 tablespoons of dried fruit. Milk and of-kbkha-dxhxs yogurt have 15 grams of carbs in a serving. A serving is 1 cup of milk or 3/4 cup (6 oz) of kx-xfvxl-dgyeh yogurt. Starchy vegetables have 15 grams of carbs in a serving. A serving is ?? cup of mashed potatoes or sweet potato; 1 cup winter squash; ?? of a small baked potato; ?? cup of cooked beans; or ?? cup cooked corn or green peas. Learn how much carbs to eat each day and at each meal. A dietitian or certified neurodiagnostic technologist can teach you how to keep track [...] MARIALUISA clipping. PMH of chronic HFrEF s/p IRONER/ICD, IDDM2, HTN, HLD, remote melanoma, active smoker. 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 Jeffy Hood MD 06/19/2024 Between the hours of 1800 - 0600 and on the weekends please page [phone]. * Alejandra Baumann, GRAPE CRUSHER - 06/19/2024 7:09 AM EST Follow Up Diabetes Consult Patient Interview Blood glucose values and insulin use reviewed. Jardiance added back yesterday, medicare contact specialist low BGto 51. Glargine reduced to 45 [...] MARIALUISA clipping. PMH of chronic HFrEF s/p IRONER/ICD, IDDM2, HTN, HLD, remote melanoma, active smoker. Jardiance added back yesterday. clean rice grader and reel tender low BG to 51. Glargine reduced to [...] 2 tablespoons of dried fruit. Milk and hz-arjce-czbre yogurt have 15 grams of carbs in a serving. A serving is 1 cup of milk or 3/4 cup (6 oz) of am-lelss-alqqo yogurt. Starchy vegetables have 15 grams of carbs in a serving. A serving is ?? cup of mashed potatoes or sweet potato; 1 cup winter squash; ?? of a small baked potato; ?? cup of cooked beans; or ?? cup cooked corn or green peas. Learn how much carbs to eat each day and at each meal. A dietitian or certified neurodiagnostic technologist can teach you how to keep track [...] cheese, and peanut butter. Alejandra Baumann APRN [facility] Endocrinology Diabetes Management Pager [phone] Weekends please page [phone] * Hilda Resendez PTA - 06/18/2024 9:19 AM EST Physical Therapy Note 2 Patient profile: George Mehta is a 69 y.o. male with a history of CAD s/p multiple PCI who presented with an anterior STEMI and was given lytics. Cath showed MV CAD without culprit vessel. He is now 1 Day Post-Op CABGx3 and MARIALUISA clipping. PMH of chronic HFrEF s/p IRONER/ICD, IDDM2, HTN, HLD, remote melanoma, active smoker. Interval History: Per last cardiac surgery note on 06/18/2024 Cr improved 1.4 on lasix 40 iv bid -1.5L, made 2.5L urine Coreg, entresto restarted Floor status Social History: Pt lives with his in a 1 level apartment with no steps to enter. 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 He sleeps in a recliner at baseline. Precautions/Special Considerations: Sternal precautions, PIV, at risk to fall, PPM Mobility and Positioning Recommendations: Pt to utilize no AD, supervision for ambulation and transfers w/ staffing recruiter as able. Please encourage up to chair [...] least restrictive device Time IN / OUT: 3299-4872 Total Time: 11 minutes; TEF 1 Hilda Resendez PTA Pager: [phone] Physical Therapy Inpatient Rehabilitation Department * Keila Hanley, GRAPE CRUSHER - 06/18/2024 8:48 AM EST Cardiac Surgery Progress Note George Mehta is a 69 y.o. male with a history of CAD s/p multiple PCI who presented with an anterior STEMI and was given lytics. Cath showed MV CAD without culprit vessel. He is now 4 Days Post-OpCABGx3 and MARIALUISA clipping. PMH of chronic HFrEF s/p IRONER/ICD, IDDM2, HTN, HLD, remote melanoma, active smoker. 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 Restarting jardiance #Active smoker Duoneb prn Dispo: CVCC, Full code, tx to floor Discussed with attending surgeon on rounds this morning. KEILA HANLEY APRN 06/18/2024 Between the hours of 1800 - 0600 and on the weekends please page [phone]. * Alejandra Baumann, JOSÉ ANTONIO - 06/17/2024 [...] MARIALUISA clipping. PMH of chronic HFrEF s/p IRONER/ICD, IDDM2, HTN, HLD, remote melanoma, active smoker. [...] based on ISF 20 Alejandra Baumann APRN [facility] Endocrinology Diabetes Management Pager [phone] Weekends please page [phone] 35 minutes were spent over the course [...] MARIALUISA clipping. PMH of chronic HFrEF s/p IRONER/ICD, IDDM2, HTN, HLD, remote melanoma, active smoker. [...] 0600 and on the weekends please page [phone]. * Raymond Carlton MD - 06/16/2024 1:11 PM EST CARDIAC CRITICAL CARE ATTENDING STAFF PROGRESS NOTE Patient seen and examined. George Mehta is a 69 y.o. male with: Active Hospital Problems Diagnosis STEMI (ST elevation myocardial infarction) Cardiac resynchronization therapy defibrillator (IRONER-D) - Medtronic Amplia Cardiomyopathy, ischemic Acute on chronic heart failure with reduced ejection fraction (HFrEF, <= 40%) Coronary artery disease involving paiute-shoshone coronary artery of paiute-shoshone heart without angina pectoris Type 2 diabetes [...] encouragement provided Patient screened for f/u and keno writer / runner met pt at bedside. Pt states his [...] unless consulted in the interim. RICHA Simmons Bull Ladle Tender * Octaviano Horvath PA - 06/16/2024 8:07 AM EST Cardiac Surgery Progress Note George Mehta is a 69 y.o. male with a history of CAD s/p multiple PCI who presented with an anterior STEMI and was given lytics. Cath showed MV CAD without culprit vessel. He is now 2 Days Post-OpCABGx3 and MARIALUISA clipping. PMH of chronic HFrEF s/p IRONER/ICD, IDDM2, HTN, HLD, remote melanoma, active smoker. [...] 0600 and on the weekends please page [phone]. * Jono Fernandez PT - 06/15/2024 4:09 PM EST Physical Therapy Evaluation Patient profile: George Mehta is a 69 y.o. male with a history of CAD s/p multiple PCI who presented with an anterior STEMI and was given lytics. Cath showed MV CAD without culprit vessel. He is now 1 Day Post-Op CABGx3 and MARIALUISA clipping. PMH of chronic HFrEF s/p IRONER/ICD, IDDM2, HTN, HLD, remote melanoma, active smoker. 24h Events: From OR on Dobutamine IABP removed Bedrest ended ~2100, sedation weaned Extubated ~0200 Dobutamine weaned to 1 this morning, CI 2.6, shut off and repeat CI 2.4 Social History: Pt lives with his in a 1 level apartment with no steps to enter. 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 He sleeps [...] outlined inthis evaluation. JONO FERNANDEZ, PT Pager: [phone] Physical Therapy Inpatient Rehabilitation Department Time IN / OUT: 6275-6591 Total Time: 33 (eval) minutes * Alejandra Baumann, GRAPE CRUSHER - 06/15/2024 11:39 AM EST Follow Up Diabetes Consult Patient Interview Blood glucose values and insulin use reviewed. Pt remains on an insulin drip today following [id number] MARIALUISA clipping. George continues to complain of [...] MARIALUISA clipping. PMH of chronic HFrEF s/p IRONER/ICD, IDDM2, HTN, HLD, remote melanoma, active smoker. [...] based on ISF 20 Alejandra Baumann APRN [facility] Endocrinology Diabetes Management Pager [phone] Weekends please page [phone] 50 minutes were spent over the course [...] elevation myocardial infarction) Cardiac resynchronization therapy defibrillator (IRONER-D) - Medtronic Amplia Cardiomyopathy, ischemic Acute on chronic heart failure with reduced ejection fraction (HFrEF, <= 40%) Coronary artery disease involving paiute-shoshone coronary artery of paiute-shoshone heart without angina pectoris Type 2 diabetes [...] with h/o DM, CAD with prior PCI, IRONER-D who presented with crushing chest pain, found [...] AM EST Cardiac Surgery Progress Note George Mehat is a 69 y.o. male with a history of CAD s/p multiple PCI who presented with an anterior STEMI and was given lytics. Cath showed MV CAD without culprit vessel. He is now 1 Day Post-Op CABGx3 and MARIALUISA clipping. PMH of chronic HFrEF s/p IRONER/ICD, IDDM2, HTN, HLD, remote melanoma, active smoker. [...] sternotomy dressing CDI, saphenectomy dressing CDi Tubes/Lines/Drains: [place], RIJ, A-line, Mediastinal marcos and bilateral pleural [...] 0600 and on the weekends please page [phone]. * Yoli Donaldson, COMMUNICATIONS MARKETING INTERN - 06/15/2024 5:35 AM EST AMV Protocol: [...] with h/o DM, CAD with prior PCI, IRONER-D who presented with crushing chest pain, found [...] 1.5 PTT 31 T/L/D Barr ETT CVL [place] CT Pacing wires ASSESSMENT, MANAGEMENT, and DECISION MAKIN y.o. male with h/o DM, CAD with prior PCI, IRONER-D who presented with crushing chest pain, found [...] 0600 and on the weekends please page [phone]. * Chloé Cortez - 06/14/2024 9:36 AM [...] unless consulted in the interim. Chloé Cortez Disassembler * Jim Benites MD - 06/13/2024 1:15 [...] - Mildly dilated left ventricle size with iokeawpt-lj-qeknokhe decreased LV systolic function. LV ejection fraction [...] ACS/crushing chest pain, likely due to lateral MO, found to have surgical CAD with viability [...] (abstinent since admission), ASCVD with multiple prior MO and PCIs, ICM/HFrEF LVEF 30% (all territories [...] elevation myocardial infarction) Cardiac resynchronization therapy defibrillator (IRONER-D) - Medtronic Amplia Cardiomyopathy, ischemic Acute on chronic heart failure with reduced ejection fraction (HFrEF, <= 40%) Coronary artery disease involving paiute-shoshone coronary artery of paiute-shoshone heart without angina pectoris Type 2 diabetes [...] PCP: Mauro Berumen MD PCP phone number: [phone] Date of Admission: 06/02/2024 ( Hospital Day 10 days ) Attending:Ethel Carrillo MD ID: 69 y.o. male with a h/o DM type 2, HTN, HLD, current smoker (2-3 cigarettes/day), HFrEF with anICD for low EF (~30%), and CAD with prior MO x3 with JENNA placed in [facility], presented to [facility] with 1 hour of retrosternal CP (05/13) while watching TV, found to have STEMI. Active Problems: Active Hospital Problems Diagnosis STEMI (ST elevation myocardial infarction) Cardiac resynchronization therapy defibrillator (IRONER-D) - Medtronic Amplia Cardiomyopathy, ischemic Acute on chronic heart failure with reduced ejection fraction (HFrEF, <= 40%) Coronary artery disease involving paiute-shoshone coronary artery of paiute-shoshone heart without angina pectoris Type 2 diabetes [...] in the last 7068 hours. Invalid input(s): [id number] Recent Labs 06/12/24 0425 06/11/24 2356 06/11/24 2025 06/11/24 1624 06/11/24 1108 06/11/24 0748 06/11/24 0357 06/11/24 0050 06/10/24 1922 06/10/24 1735 06/10/24 1125 06/10/24 0746 POCGLU 132 135 210* 81 233* 184 132 144 236* 123 216* 206* Heme No results for input(s): LDH, HAPTOGLOBIN, URICACID in the last 168 hours. ABG (Arterial Blood Gas) No results found for: PHART, PO2ART, FRZ3VEK, BMS0WNH Microbiology: Microbiology Results (Last 30 days) No results found for the last 720 hours. Imaging: Results for orders placed or performed during the hospital encounter of 06/02/24 XR Chest One View (Exam End: 06/03/2024 2:41 AM) Result Value WORKSTATION ID [id number] Impression No radiographically evident acute cardiopulmonary process. Thank you for letting us participate in the care of this patient. If you are a health care provider and have any questions regarding this report, please contact the number below. For patients who have questions please contact the health client care specialist that requested your imaging first. Cardiac Morphology Function wwo Contrast (Exam End: 06/07/2024 1:10 PM) Result Value WORKSTATION ID [id number] Impression - Findings consistent with an ischemic [...] - Mildly dilated left ventricle size with uxpferki-bv-gejwyeor decreased LV systolic function. LV ejection fraction [...] questions please contact the health client care specialist that requested your imaging first. Chest wo Contrast (Generic) (Exam End: 06/03/2024 4:33 PM) Result Value WORKSTATION ID [id number] Impression Cardiomegaly. Biventricular ICD leads in place. Thank you for letting us participate in the care of this patient. If you are a health care provider and have any questions regarding this report, please contact the number below. For patients who have questions please contact the health client care specialist that requested your imaging first. Chest PA & Lateral (Generic) (Exam End: 06/07/2024 7:03 AM) Result Value WORKSTATION ID [id number] Impression Biventricular ICD leads intact and in [...] questions please contact the health client care specialist that requested your imaging first. : Limited echo performed by fellow jawbone breaker to assess LV function. Left ventricle is [...] ischemic cardiomyopathy with HFrEF (~30% EF), prior MO with stents, DM type 2, HTN, HLD, active smoker, presented with anterior STEMI. Angiography revealed severe multivessel CAD with extensive calcification and YUE 3 flow in all vessels, without a clear culprit lesion. Currently pain-free after TNK, Plavix, ASA, and heparin, with mildly elevated LVEDP at 40 mmHg and mild volume overload. 06/12/24: Patient stable, asymptomatic. Plan to go to cytology laboratory manager for balloon pump tomorrow, then willgo to [...] CODE Dain Colón MD Cardiology, M1-S2, Pager #[phone] 06/12/24 Associated attestation - Ethel Carrillo MD [...] (abstinent since admission), ASCVD with multiple prior MO and PCIs, ICM/HFrEF LVEF 30% (all territories [...] of two midnights or is on the [facility] inpatient only procedure list (status C) due to: acute myocardial infarction requiring titration of IV medication and fluid monitoring and decompensated congestive heart failure requiring IV medication and fluid monitoring Ethel Carrillo MD Cardiovascular Medicine Personal Pager [phone] 06/12/2024 9:12 PM * Alejandra Baumann, GRAPE CRUSHER - 06/11/2024 4:21 PM EST Images from [...] too aggressive, suggest ICR 1:6 (rule of [id number]/81 = 6.25). George is up and walking [...] ischemic cardiomyopathy with HFrEF (~30% EF), prior MO with stents, DM type 2, HTN, HLD, [...] on placing this weekend and transfer to [facility], likely Friday. With lower BG following [...] ac, metformin 1000mg BID Alejandra Baumann APRN [facility] Endocrinology Diabetes Management Pager [phone] Weekends please page [phone] 35 minutes were spent over the course [...] PCP: Mauro Berumen MD PCP phone number: [phone] Date of Admission: 06/02/2024 ( Hospital Day 9 days ) Attending:Melida Valdes MD ID: 69 y.o. male with a h/o DM type 2, HTN, HLD, current smoker (2-3 cigarettes/day), HFrEF with anICD for low EF (~30%), and CAD with prior MO x3 with JENNA placed in [place], Melanoma, PAD, presented to [facility] with 1 hour of retrosternal CP (05/13) while watching TV, found to have STEMI. Active Problems: Active Hospital Problems Diagnosis STEMI (ST elevation myocardial infarction) Cardiac resynchronization therapy defibrillator (IRONER-D) - Medtronic Amplia Cardiomyopathy, ischemic Acute on chronic heart failure with reduced ejection fraction (HFrEF, <= 40%) Coronary artery disease involving paiute-shoshone coronary artery of paiute-shoshone heart without angina pectoris Type 2 diabetes [...] in the last 7068 hours. Invalid input(s): [id number] Recent Labs 06/11/24 0357 06/11/24 0050 06/10/24 1922 06/10/24 1735 06/10/24 1125 06/10/24 0746 06/10/24 0423 06/10/24 0005 06/09/24 2036 06/09/24 1727 06/09/24 1152 06/09/24 0810 POCGLU 132 144 236* 123 216* 206* 154 125 197 174 211* 209* Heme No results for input(s): LDH, HAPTOGLOBIN, URICACID in the last 168 hours. ABG (Arterial Blood Gas) No results found for: PHART, PO2ART, RWR0NAP, BWY3WEH Microbiology: Microbiology Results (Last 30 days) No results found for the last 720 hours. Imaging: Results for orders placed or performed during the hospital encounter of 06/02/24 XR Chest One View (Exam End: 06/03/2024 2:41 AM) Result Value WORKSTATION ID [id number] Impression No radiographically evident acute cardiopulmonary process. Thank you for letting us participate in the care of this patient. If you are a health care provider and have any questions regarding this report, please contact the number below. For patients who have questions please contact the health client care specialist that requested your imaging first. Cardiac Morphology Function wwo Contrast (Exam End: 06/07/2024 1:10 PM) Result Value WORKSTATION ID [id number] Impression - Findings consistent with an ischemic [...] - Mildly dilated left ventricle size with fxslgtqv-fi-htiuaqok decreased LV systolic function. LV ejection fraction [...] questions please contact the health client care specialist that requested your imaging first. Chest wo Contrast (Generic) (Exam End: 06/03/2024 4:33 PM) Result Value WORKSTATION ID [id number] Impression Cardiomegaly. Biventricular ICD leads in place. Thank you for letting us participate in the care of this patient. If you are a health care provider and have any questions regarding this report, please contact the number below. For patients who have questions please contact the health client care specialist that requested your imaging first. Chest PA & Lateral (Generic) (Exam End: 06/07/2024 7:03 AM) Result Value WORKSTATION ID [id number] Impression Biventricular ICD leads intact and in [...] questions please contact the health client care specialist that requested your imaging first. : Limited echo performed by fellow jawbone breaker to assess LV function. Left ventricle is [...] Infusions: heparin (porcine) infusion 1,400 Units/hr (06/10/24 7596) PRN Meds:.insulin lispro, glucose 40% oral geL [...] ischemic cardiomyopathy with HFrEF (~30% EF), prior MO with stents, DM type 2, HTN, HLD, [...] on Friday, likely Friday then transfer to [facility] #HFrEF (Ischemic Cardiomyopathy): -Monitor I&O and [...] CODE Dain Colón MD Cardiology, M1-S2, Pager #[phone] 06/11/24 Associated attestation - Ethel Carrillo MD [...] (abstinent since admission), ASCVD with multiple prior MO and PCIs, ICM/HFrEF LVEF 30% (all territories [...] of two midnights or is on the [facility] inpatient only procedure list (status C) due to: acute myocardial infarction requiring titration of IV medication and fluid monitoring and decompensated congestive heart failure requiring IV medication and fluid monitoring Ethel Carrillo MD Cardiovascular Medicine Personal Pager [phone] 06/11/2024 9:35 PM * Hilary Belle - 06/10/2024 12:39 PM EST Nutrition Services Note George Mehta is a 69 y.o. male Reason for intervention: hospital day 9 Nutrition Plan: Continue diet order: 60/60/75 CHO Level 2 Encourage good PO Lasix and Insulin noted Monitor weight Patient scheduled for a hospital day 9 nutrition evaluation. Data Entry Technician attempted to meet with pt at bedside [...] unless consulted in the interim. Hilary Belle Bull Ladle Tender * Mariia Montero RN - 06/10/2024 12:23 PM EST I have met with the patient to: discuss discharge planning needs. provide the [facility], Office of Care Management letter from the Contract Negotiator pertaining to rehab referrals. provide a letter describing our affiliations within the [facility] and educate about their right to choose where referrals are sent. provide a list of Home Health Agencies / Durable Medical Equipment vendors which serve their preferred geographic area. provided patient with [facility] Star Quality Rating handout. They have requested referrals to: [facility]. [address] [place] [id number] RN / PT Anticipated d/c date: 06/20/24 Note routed to a First Line Supervisor who will communicate referrals to facilities and provide any required information. * Dain Colón MD - 06/10/2024 7:17 AM EST Images from the original note were not included. . Cardiology Progress Note Patient info: Name: George Mehta : 1955 PCP: Mauro Berumen MD PCP phone number: [phone] Date of Admission: 06/02/2024 ( Hospital Day 8 days ) Attending:Melida Valdes MD ID: 69 y.o. male with a h/o DM type 2, HTN, HLD, current smoker (2-3 cigarettes/day), HFrEF with anICD for low EF (~30%), and CAD with prior MO x3 with JENNA placed in [place], Melanoma, PAD, presented to [facility] with 1 hour of retrosternal CP (05/13) while watching TV, found to have STEMI. Active Problems: Active Hospital Problems Diagnosis STEMI (ST elevation myocardial infarction) Cardiac resynchronization therapy defibrillator (IRONER-D) - Medtronic Amplia Cardiomyopathy, ischemic Acute on chronic heart failure with reduced ejection fraction (HFrEF, <= 40%) Coronary artery disease involving paiute-shoshone coronary artery of paiute-shoshone heart without angina pectoris Type 2 diabetes [...] in the last 7068 hours. Invalid input(s): [id number] Recent Labs 06/10/24 0423 06/10/24 0005 06/09/24 2036 06/09/24 1727 06/09/24 1152 06/09/24 0810 06/09/24 0440 06/09/24 0034 06/08/24 2027 06/08/24 1616 06/08/24 1235 06/08/24 0810 POCGLU 154 125 197 174 211* 209* 131 186 176 159 226* 190 Heme No results for input(s): LDH, HAPTOGLOBIN, URICACID in the last 168 hours. ABG (Arterial Blood Gas) No results found for: PHART, PO2ART, ASS1PEZ, NII6CJD Microbiology: Microbiology Results (Last 30 days) No results found for the last 720 hours. Imaging: Results for orders placed or performed during the hospital encounter of 06/02/24 XR Chest One View (Exam End: 06/03/2024 2:41 AM) Result Value WORKSTATION ID [id number] Impression No radiographically evident acute cardiopulmonary process. Thank you for letting us participate in the care of this patient. If you are a health care provider and have any questions regarding this report, please contact the number below. For patients who have questions please contact the health client care specialist that requested your imaging first. Cardiac Morphology Function wwo Contrast (Exam End: 06/07/2024 1:10 PM) Result Value WORKSTATION ID [id number] Impression - Findings consistent with an ischemic [...] - Mildly dilated left ventricle size with xgfcypok-fn-vozabtzl decreased LV systolic function. LV ejection fraction [...] questions please contact the health client care specialist that requested your imaging first. Chest wo Contrast (Generic) (Exam End: 06/03/2024 4:33 PM) Result Value WORKSTATION ID [id number] Impression Cardiomegaly. Biventricular ICD leads in place. Thank you for letting us participate in the care of this patient. If you are a health care provider and have any questions regarding this report, please contact the number below. For patients who have questions please contact the health client care specialist that requested your imaging first. Chest PA & Lateral (Generic) (Exam End: 06/07/2024 7:03 AM) Result Value WORKSTATION ID [id number] Impression Biventricular ICD leads intact and in [...] questions please contact the health client care specialist that requested your imaging first. : Limited echo performed by fellow jawbone breaker to assess LV function. Left ventricle is [...] ischemic cardiomyopathy with HFrEF (~30% EF), prior MO with stents, DM type 2, HTN, HLD, [...] plan on placing this and transfer to [facility], likely Friday. #ASCVD / STEMI: -Holding Plavix; continue ASA and heparin gtt. -Consult CT surgery for potential open revascularization. -Monitor telmetry -TTE -Viability planning per CT surgery - CT chest (complete) - Carotid duplex bilat (complete) - Cardiac MR (scheduled today Thursday 06/07) - Will need balloon pump prior to CABG on Friday, likely Friday then transfer to [facility] #HFrEF (Ischemic Cardiomyopathy): -Monitor I&O and [...] CODE Dain Colón MD Cardiology, M1-S2, Pager #[phone] 06/10/24 Associated attestation - Melida Valdes MD [...] a lytic and brought directly to the Shipping Receiving Clerk. Cardiac catheterization demonstrated multivessel disease [...] who is agreeable Melida Valdes MD Staff Crm Marketing Specialist * Cherelle Fregoso, JOSÉ ANTONIO - 06/09/2024 [...] ischemic cardiomyopathy with HFrEF (~30% EF), prior MO with stents, DM type 2, HTN, HLD, [...] PCP: Mauro Berumen MD PCP phone number: [phone] Date of Admission: 06/02/2024 ( Hospital Day 7 days ) Attending:Melida Valdes MD ID: 69 y.o. male with a h/o DM type 2, HTN, HLD, current smoker (2-3 cigarettes/day), HFrEF with anICD for low EF (~30%), and CAD with prior MO x3 with JENNA placed in [place], Melanoma, PAD, presented to [facility] with 1 hour of retrosternal CP (05/13) while watching TV, found to have STEMI. Active Problems: Active Hospital Problems Diagnosis STEMI (ST elevation myocardial infarction) Acute on chronic heart failure with reduced ejection fraction (HFrEF, <= 40%) Coronary artery disease involving paiute-shoshone coronary artery of paiute-shoshone heart without angina pectoris Type 2 diabetes [...] in the last 7068 hours. Invalid input(s): [id number] Recent Labs 06/09/24 0440 06/09/24 0034 06/08/24 2027 06/08/24 1616 06/08/24 1235 06/08/24 0810 06/08/24 0409 06/07/24 2357 06/07/24 2005 06/07/24 1631 06/07/24 1105 06/07/24 1103 POCGLU 131 186 176 159 226* 190 151 188 118 174 221* 250* Heme No results for input(s): LDH, HAPTOGLOBIN, URICACID in the last 168 hours. ABG (Arterial Blood Gas) No results found for: PHART, PO2ART, FSG3JVL, IEE9LSR Microbiology: Microbiology Results (Last 30 days) No results found for the last 720 hours. Imaging: Results for orders placed or performed during the hospital encounter of 06/02/24 XR Chest One View (Exam End: 06/03/2024 2:41 AM) Result Value WORKSTATION ID [id number] Impression No radiographically evident acute cardiopulmonary process. Thank you for letting us participate in the care of this patient. If you are a health care provider and have any questions regarding this report, please contact the number below. For patients who have questions please contact the health client care specialist that requested your imaging first. Cardiac Morphology Function wwo Contrast (Exam End: 06/07/2024 1:10 PM) Result Value WORKSTATION ID [id number] Impression - Findings consistent with an ischemic [...] - Mildly dilated left ventricle size with sqhbwhcp-jm-kpkjtezf decreased LV systolic function. LV ejection fraction [...] questions please contact the health client care specialist that requested your imaging first. Chest wo Contrast (Generic) (Exam End: 06/03/2024 4:33 PM) Result Value WORKSTATION ID [id number] Impression Cardiomegaly. Biventricular ICD leads in place. Thank you for letting us participate in the care of this patient. If you are a health care provider and have any questions regarding this report, please contact the number below. For patients who have questions please contact the health client care specialist that requested your imaging first. Chest PA & Lateral (Generic) (Exam End: 06/07/2024 7:03 AM) Result Value WORKSTATION ID [id number] Impression Biventricular ICD leads intact and in [...] questions please contact the health client care specialist that requested your imaging first. : Limited echo performed by fellow jawbone breaker to assess LV function. Left ventricle is [...] Infusions: heparin (porcine) infusion 1,400 Units/hr (06/08/24 119) PRN Meds:.glucose 40% oral geL OR dextrose [...] ischemic cardiomyopathy with HFrEF (~30% EF), prior MO with stents, DM type 2, HTN, HLD, [...] CODE Dain Colón MD Cardiology, M1-S2, Pager #[phone] 06/09/24 Associated attestation - Melida Valdes MD [...] a lytic and brought directly to the Shipping Receiving Clerk. Cardiac catheterization demonstrated multivessel disease [...] insertion low EF. Melida Valdes MD Staff Crm Marketing Specialist * Alejandra Baumann, JOSÉ ANTONIO - 06/08/2024 [...] ischemic cardiomyopathy with HFrEF (~30% EF), prior MO with stents, DM type 2, HTN, HLD, active smoker, presented with anterior STEMI. Angiography revealed severe multivessel CAD with extensive calcification and UYE 3 flow in all vessels, without a [...] to optimize glucose control Alejandra Baumann APRN [facility] Endocrinology Diabetes Management Pager [phone] Weekends please page [phone] 35 minutes were spent over the course [...] PCP: Mauro Berumen MD PCP phone number: [phone] Date of Admission: 06/02/2024 ( Hospital Day 6 days ) Attending:Melida Valdes MD ID: 69 y.o. male with a h/o DM type 2, HTN, HLD, current smoker (2-3 cigarettes/day), HFrEF with anICD for low EF (~30%), and CAD with prior MO x3 with JENNA placed in [place], Melanoma, PAD, presented to [facility] with 1 hour of retrosternal CP (05/13) while watching TV, found to have STEMI. Active Problems: Active Hospital Problems Diagnosis STEMI (ST elevation myocardial infarction) Acute on chronic heart failure with reduced ejection fraction (HFrEF, <= 40%) Coronary artery disease involving paiute-shoshone coronary artery of paiute-shoshone heart without angina pectoris Type 2 diabetes [...] in the last 7068 hours. Invalid input(s): [id number] Recent Labs 06/08/24 0409 06/07/247 06/07/24200406/07/24 1631 06/07/24 1105 06/07/24 1103 06/07/24 0745 06/07/24 0425 06/07/24 0008 06/06/24201706/06/24 1539 06/06/24 1339 POCGLU 151 188 118 174 221* 250* 175 127 182 143 147 317* Heme No results for input(s): LDH, HAPTOGLOBIN, URICACID in the last 168 hours. ABG (Arterial Blood Gas) No results found for: PHART, PO2ART, SRP5ZYS, RRK6ZPK Microbiology: Microbiology Results (Last 30 days) No results found for the last 720 hours. Imaging: Results for orders placed or performed during the hospital encounter of 06/02/24 XR Chest One View (Exam End: 06/03/2024 2:41 AM) Result Value WORKSTATION ID [id number] Impression No radiographically evident acute cardiopulmonary process. Thank you for letting us participate in the care of this patient. If you are a health care provider and have any questions regarding this report, please contact the number below. For patients who have questions please contact the health client care specialist that requested your imaging first. Cardiac Morphology Function wwo Contrast (Exam End: 06/07/2024 1:10 PM) Result Value WORKSTATION ID [id number] Impression - Findings consistent with an ischemic [...] - Mildly dilated left ventricle size with sntuykca-td-njnxhbhu decreased LV systolic function. LV ejection fraction [...] questions please contact the health client care specialist that requested your imaging first. Chest wo Contrast (Generic) (Exam End: 06/03/2024 4:33 PM) Result Value WORKSTATION ID [id number] Impression Cardiomegaly. Biventricular ICD leads in place. Thank you for letting us participate in the care of this patient. If you are a health care provider and have any questions regarding this report, please contact the number below. For patients who have questions please contact the health client care specialist that requested your imaging first. Chest PA & Lateral (Generic) (Exam End: 06/07/2024 7:03 AM) Result Value WORKSTATION ID [id number] Impression Biventricular ICD leads intact and in [...] questions please contact the health client care specialist that requested your imaging first. : Limited echo performed by fellow jawbone breaker to assess LV function. Left ventricle is [...] ischemic cardiomyopathy with HFrEF (~30% EF), prior MO with stents, DM type 2, HTN, HLD, [...] CODE Dain Colón MD Cardiology, M1-S2, Pager #[phone] 06/08/24 Associated attestation - Melida Valdes MD [...] a lytic and brought directly to the Shipping Receiving Clerk. Cardiac catheterization demonstrated multivessel disease [...] Otherwise clinically stable Melida Valdes MD Staff Crm Marketing Specialist * Ross Manuel PA - 06/07/2024 12:00 PM EST Cardiac Electrophysiology CIED Interrogation/Programming Note Asked by MRI staff to evaluate and program Medtronic IRONER-D to allow for MR imaging. Patient Active Problem List Diagnosis ','STEMI (ST elevation myocardial infarction) Acute on chronic heart failure with reduced ejection fraction (HFrEF, <= 40%) Coronary artery disease involving paiute-shoshone coronary artery of paiute-shoshone heart without angina pectoris Type 2 diabetes mellitus Device Data: Medtronic Amplia MRI Quad IRONER-D KFQB1AU #[id number] 06/16/2019 RA Medtronic 4076 CapSureFix Novus [id number] 06/16/2019 RV Medtronic 6935M [id number] 06/16/2019 LV Medtronic 4298 Attain Performa MRI [id number] 06/16/2019 DDD @ 50/130/130 Adaptive Bi-V and LV VF >188bpm ATP, 35j x6 FVT >188-222bpm burst 2, 35jx5 VT Battery longevity: 2.5yrs; charge time 4s P wave: 2.3mV R wave: >20.0mV Atrial impedance: 458 ohms RV impedance: 646 ohms LV impedance: 722 ohms Atrial threshold: 0.5V @ 0.4ms RV threshold: LV threshold: 1.75V @ 0.4ms AP 0.2% MUFFLER MECHANIC 97.7% AT/AF 0% Impression and Plan: 1. Interrogated device to determine suitability for MRI 2. Programmed to MRI safe mode - VOO @ 70 3. Scan performed 4. Programming restored to baseline settings 5. Reinterrogated to verify appropriate function and settings 6. Device follow up as previously scheduled Provider: HENOK Meyer EP Consult attending physician: Libby Barton MD EP Consult positional pager #[phone](EPMD) EP Device interrogation positional pager # [phone] * Dain Colón MD - 06/07/2024 7:09 AM EST Images from the original note were not included. . Cardiology Progress Note Patient info: Name: George Mehta : 1955 PCP: Mauro Berumen MD PCP phone number: [phone] Date of Admission: 06/02/2024 ( Hospital Day 5 days ) Attending:Melida Valdes MD ID: 69 y.o. male with a h/o DM type 2, HTN, HLD, current smoker (2-3 cigarettes/day), HFrEF with anICD for low EF (~30%), and CAD with prior MO x3 with JENNA placed in [place], Melanoma, PAD, presented to [facility] with 1 hour of retrosternal CP (05/13) while watching TV, found to have STEMI. Active Problems: Active Hospital Problems Diagnosis STEMI (ST elevation myocardial infarction) Acute on chronic heart failure with reduced ejection fraction (HFrEF, <= 40%) Coronary artery disease involving paiute-shoshone coronary artery of paiute-shoshone heart without angina pectoris Type 2 diabetes [...] in the last 7068 hours. Invalid input(s): [id number] Recent Labs 06/07/24 0425 06/07/24 0008 06/06/24 2018 06/06/24 1539 06/06/24 1339 06/06/24 1134 06/06/24 0757 06/06/24 0653 06/05/24 2231 06/05/24 1622 06/05/24 1134 06/05/24 0727 POCGLU 127 182 143 147 317* 264* 195 187 238* 205* 211* 166 Heme No results for input(s): LDH, HAPTOGLOBIN, URICACID in the last 168 hours. ABG (Arterial Blood Gas) No results found for: PHART, PO2ART, GDD3XDI, YOM2CBF Microbiology: Microbiology Results (Last 30 days) No results found for the last 720 hours. Imaging: Results for orders placed or performed during the hospital encounter of 06/02/24 XR Chest One View (Exam End: 06/03/2024 2:41 AM) Result Value WORKSTATION ID [id number] Impression No radiographically evident acute cardiopulmonary process. Thank you for letting us participate in the care of this patient. If you are a health care provider and have any questions regarding this report, please contact the number below. For patients who have questions please contact the health client care specialist that requested your imaging first. Chest wo Contrast (Generic) (Exam End: 06/03/2024 4:33 PM) Result Value WORKSTATION ID [id number] Impression Cardiomegaly. Biventricular ICD leads in place. Thank you for letting us participate in the care of this patient. If you are a health care provider and have any questions regarding this report, please contact the number below. For patients who have questions please contact the health client care specialist that requested your imaging first. : Limited echo performed by fellow jawbone breaker to assess LV function. Left ventricle is [...] Continuous Infusions: heparin (porcine) infusion 1,400 Units/hr (06/06/249) PRN Meds:.insulin lispro, potassium chloride ER OR [...] ischemic cardiomyopathy with HFrEF (~30% EF), prior MO with stents, DM type 2, HTN, HLD, [...] Dain Colón MD (PGY-1) Cardiology, M1-S2, Pager #[phone] 06/07/24 Associated attestation - Melida Valdes MD [...] a lytic and brought directly to the Shipping Receiving Clerk. Cardiac catheterization demonstrated multivessel disease [...] for further guidance. Melida Valdes MD Staff Crm Marketing Specialist * Dain Colón MD - 06/06/2024 7:17 AM EST Images from the original note were not included. . Cardiology Progress Note Patient info: Name: George Mehta : 1955 PCP: Mauro Berumen MD PCP phone number: [phone] Date of Admission: 06/02/2024 ( Hospital Day 4 days ) Attending:Melida Valdes MD ID: 69 y.o. male with a h/o DM type 2, HTN, HLD, current smoker (2-3 cigarettes/day), HFrEF with anICD for low EF (~30%), and CAD with prior MO x3 with JENNA placed in [place], Melanoma, PAD, presented to [facility] with 1 hour of retrosternal CP (05/13) while watching TV, found to have STEMI. Active Problems: Active Hospital Problems Diagnosis STEMI (ST elevation myocardial infarction) Acute on chronic heart failure with reduced ejection fraction (HFrEF, <= 40%) Coronary artery disease involving pa[place]shoshone coronary artery of pai[place]shoshone heart without angina pectoris Type 2 diabetes [...] in the last 7068 hours. Invalid input(s): [id number] Recent Labs 06/06/24 0653 06/05/24 2231 06/05/24 1622 06/05/24 1134 06/05/24 0727 06/04/24 1943 06/04/24 1526 06/04/24 1109 06/04/24 0711 06/03/24 2005 06/03/24 1748 06/03/24 1114 POCGLU 187 238* 205* 211* 166 175 154 188 182 136 191 166 Heme No results for input(s): LDH, HAPTOGLOBIN, URICACID in the last 168 hours. ABG (Arterial Blood Gas) No results found for: PHART, PO2ART, JTV9KEJ, PRL9VNE Microbiology: Microbiology Results (Last 30 days) No results found for the last 720 hours. Imaging: Results for orders placed or performed during the hospital encounter of 06/02/24 XR Chest One View (Exam End: 06/03/2024 2:41 AM) Result Value WORKSTATION ID [id number] Impression No radiographically evident acute cardiopulmonary process. Thank you for letting us participate in the care of this patient. If you are a health care provider and have any questions regarding this report, please contact the number below. For patients who have questions please contact the health client care specialist that requested your imaging first. Chest wo Contrast (Generic) (Exam End: 06/03/2024 4:33 PM) Result Value WORKSTATION ID [id number] Impression Cardiomegaly. Biventricular ICD leads in place. Thank you for letting us participate in the care of this patient. If you are a health care provider and have any questions regarding this report, please contact the number below. For patients who have questions please contact the health client care specialist that requested your imaging first. : Limited echo performed by fellow jawbone breaker to assess LV function. Left ventricle is [...] ischemic cardiomyopathy with HFrEF (~30% EF), prior MO with stents, DM type 2, HTN, HLD, [...] Dain Colón MD (PGY-1) Cardiology, M1-S2, Pager #[phone] 06/06/24 Associated attestation - Melida Valdes MD [...] a lytic and brought directly to the Shipping Receiving Clerk. Cardiac catheterization demonstrated multivessel disease [...] management. Help appreciated Melida Valdes MD Staff Crm Marketing Specialist * Frederick Dunn MD - 06/05/2024 8:13 AM EDT Images from the original note were not included. . Cardiology Progress Note Patient info: Name: George Mehta : 1955 PCP: Mauro Berumen MD PCP phone number: [phone] Date of Admission: 06/02/2024 ( Hospital Day 3 days ) Attending:Melida Valdes MD ID: 69 y.o. male with a h/o DM type 2, HTN, HLD, current smoker (2-3 cigarettes/day), HFrEF with anICD for low EF (~30%), and CAD with prior MO x3 with JENNA placed in [place], Melanoma, PAD, presented to [facility] with 1 hour of retrosternal CP (05/13) [...] in the last 7068 hours. Invalid input(s): [id number] Recent Labs 06/05/24 1134 06/05/24 0727 06/04/24 1943 06/04/24 1526 06/04/24 1109 06/04/24 0711 06/03/24 2005 06/03/24 1748 06/03/24 1114 06/03/24 0754 06/02/24 2331 POCGLU 211* 166 175 154 188 182 136 191 166 195 156 Heme No results for input(s): LDH, HAPTOGLOBIN, URICACID in the last 168 hours. ABG (Arterial Blood Gas) No results found for: PHART, PO2ART, ZQI4MFP, GSW1ESA Microbiology: Microbiology Results (Last 30 days) No results found for the last 720 hours. Imaging: Results for orders placed or performed during the hospital encounter of 06/02/24 XR Chest One View (Exam End: 06/03/2024 2:41 AM) Result Value WORKSTATION ID [id number] Impression No radiographically evident acute cardiopulmonary process. Thank you for letting us participate in the care of this patient. If you are a health care provider and have any questions regarding this report, please contact the number below. For patients who have questions please contact the health client care specialist that requested your imaging first. Chest wo Contrast (Generic) (Exam End: 06/03/2024 4:33 PM) Result Value WORKSTATION ID [id number] Impression Cardiomegaly. Biventricular ICD leads in place. Thank you for letting us participate in the care of this patient. If you are a health care provider and have any questions regarding this report, please contact the number below. For patients who have questions please contact the health client care specialist that requested your imaging first. : Limited echo performed by fellow jawbone breaker to assess LV function. Left ventricle is [...] ischemic cardiomyopathy with HFrEF (~30% EF), prior MO with stents, DM type 2, HTN, HLD, [...] all the information they need regarding the IRONER-D.Plan for MRI tomorrow. Starting 40 mg IV [...] a lytic and brought directly to the Shipping Receiving Clerk. Cardiac catheterization demonstrated multivessel disease [...] maintenance of 40. Melida Valdes MD Staff Crm Marketing Specialist * Migel Javier RN - 06/05/2024 6:21 AM EDT Implanted device record scanned into: Chart Review-->Media-->External Cardiology-->03/25/2024. Medtronic Amplia MRI Quad CRTD [id number] Serial #: [id number] DDD mode A + Bi/V Rates 50-130 Migel Jvaier RN * Dain Colón MD - 06/04/2024 11:16 AM EDT Implant Records Requested Type: IRONER-D Flight Coordinator: Medtronic Product: [id number] Amplia MRI MRI compatibility: Compatible for 1.5-3 T Model #: [id number] Placed at: [place], [place] Records requested for MRI: 1. Operative report 2. Implant log I requested that these records be sent to our MRI department, Dain Colón MD 06/04/24 11:58 AM * Dain Colón MD - 06/04/2024 6:57 AM EDT Images from the original note were not included. . Cardiology Progress Note Patient info: Name: George Mehta : 1955 PCP: Mauro Berumen MD PCP phone number: [phone] Date of Admission: 06/02/2024 ( Hospital Day 2 days ) Attending:Delroy Fofana MD ID: 69 y.o. male with a h/o DM type 2, HTN, HLD, current smoker (2-3 cigarettes/day), HFrEF with anICD for low EF (~30%), and CAD with prior MO x3 with JENNA placed in [place], Melanoma, PAD, presented to [facility] with 1 hour of retrosternal CP (05/13) [...] in the last 7068 hours. Invalid input(s): [id number] Recent Labs 06/03/24 2005 06/03/24 1748 06/03/24 1114 06/03/24 0754 06/02/24 2331 POCGLU 136 191 166 195 156 Heme No results for input(s): LDH, HAPTOGLOBIN, URICACID in the last 168 hours. ABG (Arterial Blood Gas) No results found for: PHART, PO2ART, DQI9YGZ, XIM3OMC Microbiology: Microbiology Results (Last 30 days) No results found for the last 720 hours. Imaging: Results for orders placed or performed during the hospital encounter of 06/02/24 XR Chest One View (Exam End: 06/03/2024 2:41 AM) Result Value WORKSTATION ID [id number] Impression No radiographically evident acute cardiopulmonary process. Thank you for letting us participate in the care of this patient. If you are a health care provider and have any questions regarding this report, please contact the number below. For patients who have questions please contact the health client care specialist that requested your imaging first. Chest wo Contrast (Generic) (Exam End: 06/03/2024 4:33 PM) Result Value WORKSTATION ID [id number] Impression Cardiomegaly. Biventricular ICD leads in place. Thank you for letting us participate in the care of this patient. If you are a health care provider and have any questions regarding this report, please contact the number below. For patients who have questions please contact the health client care specialist that requested your imaging first. : Limited echo performed by fellow jawbone breaker to assess LV function. Left ventricle is [...] ischemic cardiomyopathy with HFrEF (~30% EF), prior MO with stents, DM type 2, HTN, HLD, [...] -Lasix 40 mg IV given in the cytology laboratory manager; assess diuretic response, consider re-dosing -Continue carvedilol; [...] @CODESTATUS@ Dain Colón MD (PGY-1) Cardiology M1-S2, #[id number] 06/04/2024, 6:57 AM Associated attestation - Melida [...] a lytic and brought directly to the Shipping Receiving Clerk. Cardiac catheterization demonstrated multivessel disease [...] Friday -Diuresis with Jovanni Valdes MD Staff Crm Marketing Specialist * Fatmata Mcallister PT - 06/03/2024 3:29 [...] vs PCI) Fatmata Mcallister PT, MSPT Pager [phone] Inpatient Physical Therapy * Marlin Gómez MD [...] Marlin Gómez MD Cardiology S2, Pager # [phone] 06/03/2024 * Delroy Fofana MD - 06/03/2024 7:16 AM EDT Images from the original note were not included. . Cardiology Progress Note Patient info: Name: George Mehta : 1955 PCP: Mauro Berumen MD PCP phone number: [phone] Date of Admission: 06/02/2024 ( Hospital Day 1 day ) Attending:Nuha Rojo MD ID: 69 y.o. male with a h/o DM type 2, HTN, HLD, current smoker (2-3 cigarettes/day), HFrEF with anICD for low EF (~30%), and CAD with prior MO x3 with JENNA placed in [place], Melanoma, PAD, presented to [facility] with 1 hour of retrosternal CP (05/13) [...] in the last 7068 hours. Invalid input(s): [id number] Recent Labs 06/02/24 2331 POCGLU 156 Heme No results for input(s): LDH, HAPTOGLOBIN, URICACID in the last 168 hours. ABG (Arterial Blood Gas) No results found for: PHART, PO2ART, ZRC0VCA, YXO5LXD Microbiology: Microbiology Results (Last 30 days) No results found for the last 720 hours. Imaging: Results for orders placed or performed during the hospital encounter of 06/02/24 XR Chest One View (Exam End: 06/03/2024 2:41 AM) Result Value WORKSTATION ID [id number] Impression No radiographically evident acute cardiopulmonary process. Thank you for letting us participate in the care of this patient. If you are a health care provider and have any questions regarding this report, please contact the number below. For patients who have questions please contact the health client care specialist that requested your imaging first. : Limited echo performed by fellow jawbone breaker to assess LV function. Left ventricle is [...] ischemic cardiomyopathy with HFrEF (~30% EF), prior MO with stents, DM type 2, HTN, HLD, [...] -Lasix 40 mg IV given in the cytology laboratory manager; assess diuretic response, consider re-dosing -Continue carvedilol; [...] of care per Dain Colón MD (medical claims analyst). Please refer to his note above for details. Very pleasant 69 year old male but he is obese, diabetic, and he is a SMOKER with known prior CAD and moderately reduced LVEF (30%). He has a pacer. History of surgical resection of melanoma on his head. The patient was transferred overnight to [facility] as a STEMI. He was treated initially with a lytic (TNK) and brought directly to the cytology laboratory manager. The cath demonstrated 3VD with diffuse disease [...] - 06/13/2024 10:58 AM EST ICU Blue (#[id number]) H&P Patient info: Name: George Mehta : 1955 PCP: Mauro Berumen MD PCP phone number: [phone] Date of Admission: 06/02/2024 ( Hospital Day 11 days ) Attending:Haja Byrnes MD ID: George Mehta is a 69 y.o. male with a h/o DM type 2, HTN, HLD, current smoker (2-3 cigarettes/day), HFrEF with an ICD for low EF (~30%), and CAD with prior MO x3 with JENNA placed in [place], Melanoma, PAD, presented to [facility] with 1 hour of retrosternal CP (05/13) while watching TV, foundto have STEMI. HPI: Shahnaz Scanlon H&P 06/02 69 y.o. male with a h/o DM type 2, HTN, HLD, current smoker (2-3 cigarettes/day), HFrEF with an ICD for low EF (~30%), and CAD with prior MO x3 with JENNA placed in [place], Melanoma, PAD, presented to [facility] with 1 hour of retrosternal CP (05/13) while watching TV. CP was non-radiating, not asso ciated with diaphoresis, nausea, or SOB. Denies orthopnea, MARTÍNEZ, palpitations, or LE edema. ECG showed findings consistent with anterior STEMI. He received TNK and was transferred for PCI. Coronary angiography showed a small, non-dominant RCA with jrbw-rx-khyvaepx disease and a dominant,heavily calcified left system with prior stents in the LAD and OM. The LM bifurcates into the LAD and LCX, both heavily calcified. The proximal LCX has a 75% calcified, aneurysmal lesion, and an 80% calcified lesion distally before a large OM2. OM1 is a SAW TAILER with in-stent restenosis, filling retrograde via collaterals. [...] 40 mg Lasix was administered in the cytology laboratory manager. Cardiac surgery was consulted and plan for [...] Blood Gas) No results for input(s): PHART, ZVO9IKE, PO2ART, WOS2GFQ, LACTATEVEN, GXF9GMS, PFRATIOART2 in the last 168 hours. VBG (Venous Blood Gas) Recent Labs 06/10/24 1742 PHVEN 7.34 PO2VEN 24 DNJ7GGF 27.4 Mixed Venous Sat No results for input(s): B4IDQA4 in the last 168 hours. Intake/Output Summary [...] in the last 7068 hours. Invalid input(s): WLRIEBGUSHR0O Recent Labs 06/13/24 0741 06/13/24 0325 06/12/24 2353 06/12/24 1932 06/12/24 1541 06/12/24 1121 06/12/24 0800 06/12/24 0425 06/11/24 2356 06/11/24 2025 06/11/24 1624 06/11/24 1108 POCGLU 126 99 141 158 113 207* 169 132 135 210* 81 233* Heme No results for input(s): LDH, HAPTOGLOBIN, URICACID in the last 168 hours. ABG (Arterial Blood Gas) No results for input(s): PHART, IXQ3JSZ, PO2ART, LYK0OBW, LACTATEVEN, GNF7RAH, PFRATIOART2 in the last 168 hours. VBG (Venous Blood Gas) Recent Labs 06/10/24 1742 PHVEN 7.34 PO2VEN 24 UBE5BRT 27.4 Mixed Venous Sat No results for input(s): E4NVWH1 in the last 168 hours. Microbiology: Microbiology Results (Last 30 days) No results found for the last 720 hours. Assessment & Plan: George Mehta is a 69 y.o. male with CAD, ischemic cardiomyopathy with HFrEF (~30% EF), prior MO with stents, DM type 2, HTN, HLD, [...] Plan for CABG 06/14. Patient NPO at [place]. #ASCVD / STEMI: -Holding Plavix; continue ASA [...] (Give Meds) Daily Healthy Menu Choices/Cardiac diet ([facility]-Diet) DVT Prophylaxis: SCD GI Prophylaxis: None Dispo: [...] TUD (abstinent since admission), ASCVD with multipleprior MO and PCIs, ICM/HFrEF LVEF 30% (all territories [...] is in the chart Rebeca Prado MD Trouble Lineman PGY6 [phone] * Shahnaz Scanlon MD - [...] low EF (~30%), and CAD with prior MO x3 with JENNA placed in [place], [facility], [facility], presented to [facility] with 1 hour of retrosternal CP (05/13) while watching TV. CP was non-radiating, not assoc iated with diaphoresis, nausea, or SOB. Denies orthopnea, MARTÍNEZ, palpitations, or LE edema. ECG showed findings consistent with anterior STEMI. He received TNK and was transferred for PCI. Coronary angiography showed a small, non-dominant RCA with bnmw-an-puinxhla disease and a dominant,heavily calcified left system with prior stents in the LAD and OM. The LM bifurcates into the LAD and LCX, both heavily calcified. The proximal LCX has a 75% calcified, aneurysmal lesion, and an 80% calcified lesion distally before a large OM2. OM1 is a SAW TAILER with in-stent restenosis, filling retrograde via collaterals. [...] 40 mg Lasix was administered in the cytology laboratory manager. Past Medical History: As per HPI Significant [...] Affect: Mood normal. Behavior: Behavior normal. Diagnostics: [facility] 06/02/2024 Coronary angiography revealed small non [...] ischemic cardiomyopathy with HFrEF (~30% EF), prior MO with stents, DM type 2, HTN, HLD, [...] -Lasix 40 mg IV given in the cytology laboratory manager; assess diuretic response. -Continue carvedilol; hold Entresto [...] & Follow-up Care: Contact information for follow-up [facility] [address] [facility] [address] Cardiac Rehab, [address] [address] JAMIE GRAMAJO confirmed with [facility] that they [...] N/A Patient is insured through: Primary Insurance: [facility] MANAGED MEDICARE Payor: AAR MANAGED MEDICARE / Plan: [facility] MANAGED MEDICARE COMPLETE / Product Type: [...] Plan of Care Review 06/20/2024 1028 by Michelel Orozco RN Outcome: Ongoing (Interventions Implemented as [...] Roberts RN - 06/18/2024 10:50 AM EST [facility] CARDIAC REHABILITATION George Mehta was seen today regarding participation in the outpatient Phase 2 Cardiac Rehabilitation at [facility]. The patient agrees to a referral to [...] MEDICARE Payor: AARP MANAGED MEDICARE / Plan: [facility] MANAGED MEDICARE COMPLETE / Product Type: *No Product type* / Secondary Insurance: N/A Last Physical Therapy Recommendation: (home with ) with to be determined (06/15/24 1028) Plan for discharge is: Home w/ Services Outpatient Agency/Support Group Needs: Homecare agency Agency Choices: [facility] Home Health Services: Medication checks, Registered Nurse, Physical Therapy Agency Referrals: pending clinical course and PT/OT recs [facility] [address] [facility] [address] PHONE: [phone] FAX: [phone] Transportation: family or friend will provide Barriers [...] MEDICARE Payor: AAR MANAGED MEDICARE / Plan: [facility] MANAGED MEDICARE COMPLETE / Product Type: *No Product type* / Secondary Insurance: N/A Plan for discharge is: Home w/ Services Outpatient Agency/Support Group Needs: Homecare agency Agency Choices: [facility]: Medication checks, Registered Nurse, Physical Therapy Agency Referrals: pending clinical course and PT/OT recs [facility] [address] [place] [address] PHONE: [phone] FAX: [phone] Transportation: family or friend will provide Barriers [...] Loja MD - 06/14/2024 8:48 AM EST [facility] Operative Note Patient Name: George Mehta : [id number] MR#: [id number] Case Date: 06/14/2024 Surgeon: Surgeons and Role: * Bobby Loja MD - Primary * Rashi Bass PA - Physician Aggregate Conveyor Operator Preoperative diagnosis: CAD, MARIALUISA flickering mass on [...] area. The patient was transported to the [facility] in a critical but stable condition [...] procedures today and tomorrow. Report called to [facility] - all belongings with patient. PLAN MOVING FORWARD: cytology laboratory manager and transfer to [facility]. INDIVIDUALIZED FALL PREVENTION [...] MEDICARE Payor: AAR MANAGED MEDICARE / Plan: [facility] MANAGED MEDICARE COMPLETE / Product Type: *No Product type* / Secondary Insurance: N/A Plan for discharge is: Home w/ Services Outpatient Agency/Support Group Needs: Homecare agency, Agency Choices: [facility] Home Health Services: Medication checks, Registered Nurse, Physical Therapy Agency Referrals: [facility] [address] [place] [address] RN / PT Routed 06/10 Transportation: family [...] with home health services when medically ready. hose handler/Hat Conditioner will continue to follow patient???s progress and remain available if situation changes for coordination of care, psychosocial support and/or discharge planning. Anticipated Date of Discharge: 06/18/2024 Mariia Montero RN CM Extension [phone] * Plan of Care - Migel Javier [...] No Patient is insured through: Primary Insurance: [facility] MANAGED MEDICARE Payor: [facility] MANAGED MEDICARE / Plan: [facility] MANAGED MEDICARE COMPLETE / Product Type: [...] consult for high risk PCI vs CABG hose handler/Hat Conditioner will continue to follow patient???s progress and remain available if situation changes for coordination of care, psychosocial support and/or discharge planning. Anticipated Date of Discharge: 06/11/2024 Mariia Montero RN Extension [phone] * Plan of Care - Becca Hope [...] ischemic cardiomyopathy with HFrEF (~30% EF), prior MO with stents, DM type 2, HTN, HLD, [...] CABG and to provide a review of supervisor intermediates diabetes care. Diabetes History: George Mehta has [...] Breakfast- varies - eggs with khoury or macedonian muffin Lunch- turkey sandwich Supper- meat and [...] Infusions: heparin (porcine) infusion 1,400 Units/hr (06/06/24 5209) PRN: insulin lispro, potassium chloride ER OR [...] ischemic cardiomyopathy with HFrEF (~30% EF), prior MO with stents, DM type 2, HTN, HLD, [...] Baumann APRN Endocrinology Diabetes Management Service Pager: [phone] Weekends please page [phone] 80 minute visit was spent in counseling [...] y.o. male with a PMHx of previous MO s/p PCI x3, ICM/HFrEF (LVEF 30%) s/p ICD, DMII, HTN, HLD, remote melanoma, and smoker who presented to [facility] last night via EMS after developing acute, severe chest pain while watching TV. Patient was ruled in for STEMI, given TNK, ASA, plavix, heparin gtt, and sent to [facility] for coronary angiography. LHC demonstrated severely calcified left coronary system with notable LCx 75/80% lesions and SAW TAILER OM1 with ISR with collateral retrograde filling, [...] elevation myocardial infarction) Past Medical History: previous MO s/p PCI x3 ICM/HFrEF (LVEF 30%) s/p [...] is large. OM1 appears to be a SAW TAILER, with in stentrestenosis and fills retrograde via [...] y.o. male admitted with STEMI s/p TNK, [facility] showing multivessel CAD including ISR, no [...] to our service. Signed: Paula Treviño PA-C [facility] Section of Cardiac Surgery Date: 06/03/2024 * Initial Assessments - Catina Estrada MSW - 06/03/2024 10:32 AM EDT Office of Care Management Initial Assessment CHINA Humphrey reviewed record and discussed patient with Care Team. Source of Information: Team, bedside nurse, medical record, and Patient COMPUTER GRAPHIC DESIGNER Introduced self/reviewed role; services accepted. Admitted From: Transfer from another hospital Location: [facility] Reason for Hospitalization: Chest Pain [...] 180 days) Any patient receiving care in [place] must abide by [place] law. The hierarchy [...] (i) The agent with financial power of hostess or a conservator appointed in accordance with [...] were you homeless or living in a correction (including now)?: No In the past 12 [...] in the bathroom) Home Address confirmed as: [address] [place] [address] [address] [facility] [address] Social & Family Supports: All names listed [...] Pertinent/Service Specific Information: Health/Prescription Coverage: Primary Insurance: [facility] MEDICARE Payor: [facility] MEDICARE / Plan: AARP [employer] MANAGED MEDICARE COMPLETE / Product Type: *No Product type* / Secondary Insurance: N/A ; Prescription Coverage: Yes Preferred Pharmacy: [id number] - [facility], [place] - [address] [facility] [address] [facility] [address] [place] Status: Patient is a : No Primary Care Provider confirmed: Mauro Berumen MD [phone] Patient/Caregiver Goals of Treatment: Potential Needs for [...] planing and coordination of care as indicated. CHNIA Min Cardiology, [phone]. [phone] * Brief Op Note - Angeles Gaxiola PA - 06/03/2024 12:23 AM EDT Preliminary Cardiac Catheterization Procedure Note: Patient Name: George Mehta : [id number] MR#: [id number] Case Date: 06/02/2024 - 06/03/2024 Neurosurgical Nurse: Surgeons and Role: * Nuha Shen MD - Primary * Angeles Gaxiola PA - Physician Aggregate Conveyor Operator Preoperative diagnosis: STEMI Postoperative diagnosis: * STEMI * Procedure(s) performed: RRA access [facility] Coronary angiogram IVUS LM/LAD/LCX Access: 6 Fr RRA A time-out was conducted prior to the start of the procedure to verify the correct patient and procedure, procedure location, and all relevant critical information. Preliminary findings: 69 year old current smoker (1-2 cigarette's per day), DM type 2, hypertension, dyslipidemia, ICD for HFrEF/low EF (~30%), CAD with prior MO and 3 stents historically (in [place]) who presented to [facility] with 1 hour of rest chest pain [...] is large. OM1 appears to be a SAW TAILER, with in stentrestenosis and fills retrograde via [...] receive 40 mg of lasix in the cytology laboratory manager. Recommendations: surgical consult for possible open revascularization; [...] 7:20 AM EST Coronary artery disease involving [place] coronary artery of pa[place]sh[place]one heart without angina pectoris POC, GLUCOSE Routine [...] - 199 mg/dL 06/21/2024 3:[address] [facility] Comment:Supplemental ranges: <140 mg/dL before meals <180 mg/dL all other times of the day. Blood CAPILLARY BLOOD / Unknown 06/21/2024 3:51 AM EST 06/21/2024 3:51 AM EST Bobby Loja MD POINT OF CARE TEST O RDERABLES [facility] [place] [address] * (ABNORMAL) Basic Metabolic Panel (06/21/2024 2:09 AM EST) Glucose 169 65 - 199 mg/dL 06/21/2024 3:[address] [facility] Comment:Glucose Concentratio n >=200 mg/dL plus symptoms is consistent with Diabetes Mellitus. Blood Urea Nitrogen 27(H) 10 - 20 mg/dL 06/21/2024 3:[address] [facility] Creatinine 1.24 0.80 - 1.50 mg/dL 06/21/2024 3:[address] [facility] Sodium 138 135 - 145 mMol/L 06/21/2024 3:10 AM [facility] Potassium [...] EST 06/21/2024 2:37 AM EST Keila Hanley GRAPE CRUSHER CHEMISTRY ORDERABL ES [facility] [place] [address] * POC, GLUCOSE (06/21/2024 12:04 AM EST) Glucometer, POC 157 65 - 199 mg/dL 06/21/2024 12:[address] [facility] Comment:Supplemental ranges: <140 mg/dL before meals <180 mg/dL all other times of the day. Blood CAPILLARY BLOOD / Unknown 06/21/2024 12:04 AM EST 06/21/2024 12:04 AM EST Bobby Loja MD POINT OF CARE TEST O NIKA [facility] [place] [address] * POC, GLUCOSE (06/20/2024 11:14 PM EST) Glucometer, POC 67 65 - 199 mg/dL 06/20/2024 11:[address] [facility] Comment:Supplemental ranges: <140 mg/dL before meals <180 mg/dL all other times of the day. Blood CAPILLARY BLOOD / Unknown 06/20/2024 11:14 PM EST 06/20/2024 11:14 PM EST Bobby Loja MD POINT OF CARE TEST O NIKA Performing Organization Address City/[facility]/ZIP Co de Phone Number [facility] [place] [address] * POC, GLUCOSE (06/20/2024 7:16 PM EST) Glucometer, POC 132 65 - 199 mg/dL 06/20/2024 7:[address] [facility] Comment:Supplemental ranges: <140 mg/dL before meals <180 mg/dL all other times of the day. Blood CAPILLARY BLOOD / Unknown 06/20/2024 7:16 PM EST 06/20/2024 7:16 PM EST Bobby Loja MD POINT OF CARE TEST O NIKA [facility] [place] [address] * POC, GLUCOSE (06/20/2024 3:39 PM EST) Glucometer, POC 124 65 - 199 mg/dL 06/20/2024 3:[address] [facility] Comment:Supplemental ranges: <140 mg/dL before meals <180 mg/dL all other times of the day. Blood CAPILLARY BLOOD / Unknown 06/20/2024 3:39 PM EST 06/20/2024 3:40 PM EST Bobby Loja MD POINT OF CARE TEST O NIKA Performing Organization Address City/[facility]/ZIP Co de Phone Number [facility] [place] [address] * POC, GLUCOSE (06/20/2024 12:02 PM EST) Glucometer, POC 173 65 - 199 mg/dL 06/20/2024 12:[address] [facility] Comment:Supplemental ranges: <140 mg/dL before meals <180 mg/dL all other times of the day. Blood CAPILLARY BLOOD / Unknown 06/20/2024 12:02 PM EST 06/20/2024 12:03 PM EST Bobby Loja MD POINT OF CARE TEST O NIKA [facility] [place] [address] * POC, GLUCOSE (06/20/2024 7:10 AM EST) Glucometer, POC 130 65 - 199 mg/dL 06/20/2024 7:[address] [facility] Comment:Supplemental ranges: <140 mg/dL before meals <180 mg/dL all other times of the day. Blood CAPILLARY BLOOD / Unknown 06/20/2024 7:10 AM EST 06/20/2024 7:11 AM EST Bobby Loja MD POINT OF CARE TEST O RDERABLES [facility] [place] [address] * (ABNORMAL) Basic Metabolic Panel (06/20/2024 2:28 [...] EST Keila Hanley APRN CHEMISTRY ORDERABL ES [facility] [place] [address] * POC, GLUCOSE (06/20/2024 12:32 AM EST) Glucometer, POC 86 65 - 199 mg/dL 06/20/2024 12:[address] [facility] Comment:Supplemental ranges: <140 mg/dL before meals <180 mg/dL all other times of the day. Blood CAPILLARY BLOOD / Unknown 06/20/2024 12:32 AM EST 06/20/2024 12:32 AM EST Bobby Loja MD POINT OF CARE TEST O NIKA Performing Organization Address City/[facility]/ZIP Co de Phone Number [facility] [place] [address] * (ABNORMAL) POC, GLUCOSE (06/20/2024 12:02 AM EST) Glucometer, POC 59(L) 65 - 199 mg/dL 06/20/2024 12:[address] [facility] Comment:Supplemental ranges: <140 mg/dL before meals <180 mg/dL all other times of the day. Blood CAPILLARY BLOOD / Unknown 06/20/2024 12:02 AM EST 06/20/2024 12:03 AM EST Bobby Loja MD POINT OF CARE TEST O NIKA [facility] [place] [address] * POC, GLUCOSE (06/19/2024 8:15 PM EST) Glucometer, POC 131 65 - 199 mg/dL 06/19/2024 8:[address] [facility] Comment:Supplemental ranges: <140 mg/dL before meals <180 mg/dL all other times of the day. Blood CAPILLARY BLOOD / Unknown 06/19/2024 8:15 PM EST 06/19/2024 8:15 PM EST Bobby Loja MD POINT OF CARE TEST O NIKA [facility] [place] [address] * POC, GLUCOSE (06/19/2024 6:01 PM EST) Glucometer, POC 129 65 - 199 mg/dL 06/19/2024 6:[address] [facility] Comment:Supplemental ranges: <140 mg/dL before meals <180 mg/dL all other times of the day. Blood CAPILLARY BLOOD / Unknown 06/19/2024 6:01 PM EST 06/19/2024 6:02 PM EST Bobby Loja MD POINT OF CARE TEST O NIKA Performing Organization Address City/[facility]/ZIP Co de Phone Number [facility] [place] [address] * POC, GLUCOSE (06/19/2024 4:51 PM EST) Glucometer, POC 155 65 - 199 mg/dL 06/19/2024 4:[address] [facility] Comment:Supplemental ranges: <140 mg/dL before meals <180 mg/dL all other times of the day. Blood CAPILLARY BLOOD / Unknown 06/19/2024 4:51 PM EST 06/19/2024 4:51 PM EST Bobby Loja MD POINT OF CARE TEST O NIKA [facility] [place] [address] * POC, GLUCOSE (06/19/2024 12:37 PM EST) Glucometer, POC 136 65 - 199 mg/dL 06/19/2024 12:[address] [facility] Comment:Supplemental ranges: <140 mg/dL before meals <180 mg/dL all other times of the day. Blood CAPILLARY BLOOD / Unknown 06/19/2024 12:37 PM EST 06/19/2024 12:37 PM EST Bobby Loja MD POINT OF CARE TEST O NIKA Performing Organization Address City/[facility]/ZIP Co de Phone Number [facility] [place] [address] * POC, GLUCOSE (06/19/2024 11:20 AM EST) Glucometer, POC 185 65 - 199 mg/dL 06/19/2024 11:[address] [facility] Comment:Supplemental ranges: <140 mg/dL before meals <180 mg/dL all other times of the day. Blood CAPILLARY BLOOD / Unknown 06/19/2024 11:20 AM EST 06/19/2024 11:21 AM EST Bobby Loja MD POINT OF CARE TEST O NIKA [facility] [place] [address] * POC, GLUCOSE (06/19/2024 7:21 AM EST) Glucometer, POC 125 65 - 199 mg/dL 06/19/2024 7:[address] [facility] Comment:Supplemental ranges: <140 mg/dL before meals <180 mg/dL all other times of the day. Blood CAPILLARY BLOOD / Unknown 06/19/2024 7:21 AM EST 06/19/2024 7:22 AM EST Bobby Loja MD POINT OF CARE TEST O NIKA Performing Organization Address [facility] Co de Phone Number [facility] [place] [address] * POC, GLUCOSE (06/19/2024 4:52 AM EST) Glucometer, POC 125 65 - 199 mg/dL 06/19/2024 4:[address] [facility] Comment:Supplemental ranges: <140 mg/dL before meals <180 mg/dL all other times of the day. Blood CAPILLARY BLOOD / Unknown 06/19/2024 4:52 AM EST 06/19/2024 4:52 AM EST Bobby Loja MD POINT OF CARE TEST O NIKA Performing Organization Address [facility] Co de Phone Number [facility] [place] [address] * POC, GLUCOSE (06/19/2024 4:13 AM EST) Glucometer, POC 67 65 - 199 mg/dL 06/19/2024 4:[address] [facility] Comment:Supplemental ranges: <140 mg/dL before meals <180 mg/dL all other times of the day. Blood CAPILLARY BLOOD / Unknown 06/19/2024 4:13 AM EST 06/19/2024 4:13 AM EST Bobby Loja MD POINT OF CARE TEST O NIKA Performing Organization Address [facility] Co de Phone Number [facility] [place] [address] * (ABNORMAL) POC, GLUCOSE (06/19/2024 3:48 AM EST) Glucometer, POC 51(LLL) 65 - 199 mg/dL 06/19/2024 3:[address] [facility] Comment:Supplemental ranges: <140 mg/dL before meals <180 mg/dL all other times of the day. Blood CAPILLARY BLOOD / Unknown 06/19/2024 3:48 AM EST 06/19/2024 3:48 AM EST Bobby Loja MD POINT OF CARE TEST O RDERABLES [facility] [place] [address] * (ABNORMAL) Basic Metabolic Panel (06/19/2024 3:44 AM EST) Glucose 53(LLL) 65 - 199 mg/dL 06/19/2024 4:[address] [facility] Comment:Glucose Concentratio n >=200 mg/dL [...] APRN CHEMISTRY ORDERABL ES Performing Organization Address City/[facility]/ZIP Co de Phone Number [facility] [place] [address] * POC, GLUCOSE (06/19/2024 12:23 AM EST) Glucometer, POC 82 65 - 199 mg/dL 06/19/2024 12:[address] [facility] Comment:Supplemental ranges: <140 mg/dL before meals <180 mg/dL all other times of the day. Blood CAPILLARY BLOOD / Unknown 06/19/2024 12:23 AM EST 06/19/2024 12:23 AM EST Bobby Loja MD POINT OF CARE TEST O RDBECKIE Performing Organization Address City/[facility]/ZIP Co de Phone Number [facility] [place] [address] * POC, GLUCOSE (06/18/2024 11:08 PM EST) Glucometer, POC 73 65 - 199 mg/dL 06/18/2024 11:[address] [facility] Comment:Supplemental ranges: <140 mg/dL before meals <180 mg/dL all other times of the day. Blood CAPILLARY BLOOD / Unknown 06/18/2024 11:08 PM EST 06/18/2024 11:08 PM EST Bobby Loja MD POINT OF CARE TEST O NIKA [facility] [place] [address] * POC, GLUCOSE (06/18/2024 7:32 PM EST) Glucometer, POC 167 65 - 199 mg/dL 06/18/2024 7:[address] [facility] Comment:Supplemental ranges: <140 mg/dL before meals <180 mg/dL all other times of the day. Blood CAPILLARY BLOOD / Unknown 06/18/2024 7:32 PM EST 06/18/2024 7:32 PM EST Bobby Loja MD POINT OF CARE TEST O NIKA Performing Organization Address City/[facility]/ZIP Co de Phone Number [facility] [place] [address] * POC, GLUCOSE (06/18/2024 6:08 PM EST) Glucometer, POC 140 65 - 199 mg/dL 06/18/2024 6:[address] [facility] Comment:Supplemental ranges: <140 mg/dL before meals <180 mg/dL all other times of the day. Blood CAPILLARY BLOOD / Unknown 06/18/2024 6:08 PM EST 06/18/2024 6:09 PM EST Bobby Loja MD POINT OF CARE TEST O NIKA [facility] [place] [address] * POC, GLUCOSE (06/18/2024 4:17 PM EST) Glucometer, POC 144 65 - 199 mg/dL 06/18/2024 4:[address] [facility] Comment:Supplemental ranges: <140 mg/dL before meals <180 mg/dL all other times of the day. Blood CAPILLARY BLOOD / Unknown 06/18/2024 4:17 PM EST 06/18/2024 4:17 PM EST Bobby Loja MD POINT OF CARE TEST O RDERABLES Performing Organization Address [facility] Co de Phone Number [facility] [place] [address] * POC, GLUCOSE (06/18/2024 12:09 PM EST) Glucometer, POC 180 65 - 199 mg/dL 06/18/2024 12:[address] [facility] Comment:Supplemental ranges: <140 mg/dL before meals <180 mg/dL all other times of the day. Blood CAPILLARY BLOOD / Unknown 06/18/2024 12:09 PM EST 06/18/2024 12:09 PM EST Bobby Loja MD POINT OF CARE TEST O NIKA Performing Organization Address [facility] Co de Phone Number [facility] [place] [address] * POC, GLUCOSE (06/18/2024 7:49 AM EST) Glucometer, POC 125 65 - 199 mg/dL 06/18/2024 7:[address] [facility] Comment:Supplemental ranges: <140 mg/dL before meals <180 mg/dL all other times of the day. Blood CAPILLARY BLOOD / Unknown 06/18/2024 7:49 AM EST 06/18/2024 7:50 AM EST Bobby Loja MD POINT OF CARE TEST O NIKA Performing Organization Address [facility] Co de Phone Number [facility] [place] [address] * (ABNORMAL) Basic Metabolic Panel (06/18/2024 4:19 AM EST) Glucose 103 65 - 199 mg/dL 06/18/2024 5:[address] [facility] Comment:Glucose Concentratio n >=200 mg/dL plus symptoms is consistent with Diabetes Mellitus. Blood Urea Nitrogen 43(H) 10 - 20 mg/dL 06/18/2024 5:[address] [facility] Creatinine 1.45 0.80 - 1.50 mg/dL 06/18/2024 5:[address] [facility] Sodium 131(L) 135 - 145 [...] mL/min/1. 73 m?? 06/18/2024 5:[address] [facility] Comment: This patient's estimated GFR [...] 4:19 AM EST 06/18/2024 4:31 AM EST Ekila Dayan CHOU CHEMISTRY ORDERABL ES [facility] [place] [address] * POC, GLUCOSE (06/18/2024 3:50 AM EST) Glucometer, POC 99 65 - 199 mg/dL 06/18/2024 3:[address] [facility] Comment:Supplemental ranges: <140 mg/dL before meals <180 mg/dL all other times of the day. Blood CAPILLARY BLOOD / Unknown 06/18/2024 3:50 AM EST 06/18/2024 3:51 AM EST Bobby Loja MD POINT OF CARE TEST O NIKA [facility] [place] [address] * POC, GLUCOSE (06/17/2024 11:10 PM EST) Glucometer, POC 92 65 - 199 mg/dL 06/17/2024 11:[address] [facility] Comment:Supplemental ranges: <140 mg/dL before meals <180 mg/dL all other times of the day. Blood CAPILLARY BLOOD / Unknown 06/17/2024 11:10 PM EST 06/17/2024 11:10 PM EST Bobby Loja MD POINT OF CARE TEST O NIKA Performing Organization Address [facility]/ZIP Co de Phone Number [facility] [place] [address] * POC, GLUCOSE (06/17/2024 7:54 PM EST) Glucometer, POC 126 65 - 199 mg/dL 06/17/2024 7:[address] [facility] Comment:Supplemental ranges: <140 mg/dL before meals <180 mg/dL all other times of the day. Blood CAPILLARY BLOOD / Unknown 06/17/2024 7:54 PM EST 06/17/2024 7:54 PM EST Bobby Loja MD POINT OF CARE TEST O NIKA [facility] [place] [address] * POC, GLUCOSE (06/17/2024 4:07 PM EST) Glucometer, POC 141 65 - 199 mg/dL 06/17/2024 4:[address] [facility] Comment:Supplemental ranges: <140 mg/dL before meals <180 mg/dL all other times of the day. Blood CAPILLARY BLOOD / Unknown 06/17/2024 4:07 PM EST 06/17/2024 4:12 PM EST Bobby Loja MD POINT OF CARE TEST O RDERABLES [facility] [place] [address] * XR Chest PA & Lateral (Generic) (06/17/2024 1:46 PM EST) WORKSTATION ID [id number] [facility] [place] Anatomical Region Laterality Modality Chest N/A Digital [...] questions please contact the health client care specialist that requested your imaging first. ? Narrative [...] have questions please contactthe health client care specialist that requested your imaging first. Electronically signed by: Josselyn Spence MD, [facility]([phone]), at 06/17/2024 4:49 PM [facility] * (ABNORMAL) POC, GLUCOSE (06/17/2024 11:04 AM EST) [facility] Glucometer, POC 245(H) 65 - 199 mg/dL 06/17/2024 11:[address] [facility] Comment:Supplemental ranges: <140 mg/dL before meals <180 mg/dL all other times of the day. Blood CAPILLARY BLOOD / Unknown 06/17/2024 11:04 AM EST 06/17/2024 11:04 AM EST Bobby Loja MD POINT OF CARE TEST O RDBECKIE Performing Organization Address [facility]/ZIP Co de Phone Number [facility] [place] [address] * POC, GLUCOSE (06/17/2024 7:49 AM EST) Glucometer, POC 141 65 - 199 mg/dL 06/17/2024 7:[address] [facility] Comment:Supplemental ranges: <140 mg/dL before meals <180 mg/dL all other times of the day. Blood CAPILLARY BLOOD / Unknown 06/17/2024 7:49 AM EST 06/17/2024 7:55 AM EST Bobby Loja MD POINT OF CARE TEST O NIKA Performing Organization Address [facility] Co de Phone Number [facility] [place] [address] * POC, GLUCOSE (06/17/2024 4:16 AM EST) Glucometer, POC 139 65 - 199 mg/dL 06/17/2024 4:[address] [facility] Comment:Supplemental ranges: <140 mg/dL before meals <180 mg/dL all other times of the day. Blood CAPILLARY BLOOD / Unknown 06/17/2024 4:16 AM EST 06/17/2024 4:17 AM EST Bobby Loja MD POINT OF CARE TEST O NIKA Performing Organization Address City/[facility]/ZIP Co de Phone Number [facility] [place] [address] * Lactate, Whole Blood (06/17/2024 2:39 AM EST) Lactate, Whole Blood 1.3 0.5 - 2.2 mmol/L 06/17/2024 2:[address] [facility] Blood VENOUS BLOOD SPECIMEN / Unknown Venipuncture / Unknown 06/17/2024 2:39 AM EST 06/17/2024 2:43 AM EST Bobby Loja MD CHEMISTRY ORDERABLES [facility] [place] [address] * (ABNORMAL) Hemogram (06/17/2024 2:39 AM EST) [...] auto 0.0 % 06/17/2024 2:[address] [facility] NRBC Absolute <0.01 <0.01 x10(3)/mc L 06/17/2024 2:53 AM [facility] Blood VENOUS BLOOD SPECIMEN / Unknown Venipuncture / Unknown 06/17/2024 2:39 AM EST 06/17/2024 2:43 AM EST Bobby Loja MD HEMATOLOGY ORDERABLE S [facility] [place] [address] * (ABNORMAL) Basic Metabolic Panel (06/17/2024 2:39 AM EST) Glucose 149 65 - 199 mg/dL 06/17/2024 3:14 AM [facility] Comment:Glucose [...] mL/min/1. 73 m?? 06/17/2024 3:[address] [facility] Comment: This patient's estimated GFR [...] Loja MD CHEMISTRY ORDERABLES Performing Organization Address [facility] Co de Phone Number [facility] [place] [address] * (ABNORMAL) POC, GLUCOSE (06/17/2024 12:13 AM EST) Glucometer, POC 211(H) 65 - 199 mg/dL 06/17/2024 12:[address] [facility] Comment:Supplemental ranges: <140 mg/dL before meals <180 mg/dL all other times of the day. Blood CAPILLARY BLOOD / Unknown 06/17/2024 12:13 AM EST 06/17/2024 12:14 AM EST Bobby Ljoa MD POINT OF CARE TEST O RDERABLES Performing Organization Address City/[facility]/ZIP Co de Phone Number [facility] [place] [address] * (ABNORMAL) POC, GLUCOSE (06/16/2024 7:22 PM EST) Glucometer, POC 229(H) 65 - 199 mg/dL 06/16/2024 7:[address] [facility] Comment:Supplemental ranges: <140 mg/dL before meals <180 mg/dL all other times of the day. Blood CAPILLARY BLOOD / Unknown 06/16/2024 7:22 PM EST 06/16/2024 7:22 PM EST Narrative Authorizing Provider Result Saranya Loja MD POINT OF CARE TEST O RDERABLES Performing Organization Address City/[facility]/ZIP Co de Phone Number [facility] [place] [address] * (ABNORMAL) POC, GLUCOSE (06/16/2024 6:14 PM EST) Glucometer, POC 220(H) 65 - 199 mg/dL 06/16/2024 6:[address] [facility] Comment:Supplemental ranges: <140 mg/dL before meals <180 mg/dL all other times of the day. Blood CAPILLARY BLOOD / Unknown 06/16/2024 6:14 PM EST 06/16/2024 6:14 PM EST Narrative Authorizing Provider Result Saranya Loja MD POINT OF CARE TEST O RDNICOLLEBLES Performing Organization Address City/[facility]/ZIP Co de Phone Number [facility] [place] [address] * Lactate, Whole Blood (06/16/2024 6:14 PM EST) Lactate, Whole Blood 1.8 0.5 - 2.2 mmol/L 06/16/2024 6:[address] [facility] Blood VENOUS BLOOD SPECIMEN / Unknown Venipuncture / Unknown 06/16/2024 6:14 PM EST 06/16/2024 6:25 PM EST Narrative Authorizing Provider Result Saranya Loja MD CHEMISTRY ORDERABLES Performing Organization Address City/[facility]/ZIP Co de Phone Number [facility] [place] [address] * (ABNORMAL) POC, GLUCOSE (06/16/2024 4:14 PM EST) Glucometer, POC 240(H) 65 - 199 mg/dL 06/16/2024 4:[address] [facility] Comment:Supplemental ranges: <140 mg/dL before meals <180 mg/dL all other times of the day. Blood CAPILLARY BLOOD / Unknown 06/16/2024 4:14 PM EST 06/16/2024 4:14 PM EST Bobby Loja MD POINT OF CARE TEST O NIKA Performing Organization Address [facility] Co de Phone Number [facility] [place] [address] * POC, GLUCOSE (06/16/2024 11:49 AM EST) Glucometer, POC 199 65 - 199 mg/dL 06/16/2024 11:[address] [facility] Comment:Supplemental ranges: <140 mg/dL before meals <180 mg/dL all other times of the day. Blood CAPILLARY BLOOD / Unknown 06/16/2024 11:49 AM EST 06/16/2024 11:49 AM EST Bobby Loja MD POINT OF CARE TEST Abimael MAHER Performing Organization Address [facility] Co de Phone Number [facility] [place] [address] * (ABNORMAL) Hemogram (06/16/2024 11:44 AM EST) White Blood Cell 17.91(H) 4.00 - 9.50 x10(3)/mc L 06/16/2024 12:[address] [facility] Red Blood Cell 3.47(L) 4.58 - 5.54 x10(6)/mc L 06/16/2024 12:[address] [facility] Hemoglobin 10.5(L) 13.7 - 16.5 g/dL 06/16/2024 12:25 PM [facility] Hematocrit 33.1(L) 40.5 - 48.5 % 06/16/2024 12:[address] [facility] Mean Cell Volume 95.4(H) 82.9 [...] EST Bobby Loja MD HEMATOLOGY ORDERABLE S [facility] [place] [address] * Lactate, Whole Blood (06/16/2024 9:02 AM EST) Lactate, Whole Blood 1.8 0.5 - 2.2 mmol/L 06/16/2024 9:[address] [facility] Blood VENOUS BLOOD SPECIMEN / Unknown Venipuncture / Unknown 06/16/2024 9:02 AM EST 06/16/2024 9:17 AM EST Narrative Authorizing Provider Result Saranya Loja MD CHEMISTRY ORDERABLES Performing Organization Address [facility] Co de Phone Number [facility] [place] [address] * POC, GLUCOSE (06/16/2024 7:44 AM EST) Glucometer, POC 129 65 - 199 mg/dL 06/16/2024 7:[address] [facility] Comment:Supplemental ranges: <140 mg/dL before meals <180 mg/dL all other times of the day. Blood CAPILLARY BLOOD / Unknown 06/16/2024 7:44 AM EST 06/16/2024 7:44 AM EST Narrative Authorizing Provider Result Saranya Loja MD POINT OF CARE TEST O RDERABLES Performing Organization Address [facility] Phone Number [facility] [place] [address] * POC, GLUCOSE (06/16/2024 4:01 AM EST) Glucometer, POC 158 65 - 199 mg/dL 06/16/2024 4:[address] [facility] Comment:Supplemental ranges: <140 mg/dL before meals <180 mg/dL all other times of the day. Blood CAPILLARY BLOOD / Unknown 06/16/2024 4:01 AM EST 06/16/2024 4:01 AM EST Narrative Authorizing Provider Result Saranya Loja MD POINT OF CARE TEST O RDERABLES Performing Organization Address [facility] Co de Phone Number [facility] [place] [address] * (ABNORMAL) Basic Metabolic Panel (06/16/2024 2:23 AM EST) Glucose 177 65 - 199 mg/dL 06/16/2024 3:[address] [facility] Comment:Glucose Concentratio n >=200 mg/dL plus symptoms is consistent with Diabetes Mellitus. Blood Urea Nitrogen 37(H) 10 - 20 mg/dL 06/16/2024 3:13 AM [facility] Creatinine 2.10(H) 0.80 - 1.50 mg/dL 06/16/2024 3:13 AM [facility] Sodium 132(L) 135 - [...] AM EST Bobby Loja MD CHEMISTRY ORDERABLES [facility] [place] [id number] * POC, GLUCOSE (06/16/2024 2:21 AM EST) Glucometer, POC 176 65 - 199 mg/dL 06/16/2024 2:[address] [facility] Comment:Supplemental ranges: <140 mg/dL before meals <180 mg/dL all other times of the day. Blood CAPILLARY BLOOD / Unknown 06/16/2024 2:21 AM EST 06/16/2024 2:31 AM EST Bobby Loja MD POINT OF CARE TEST O NIKA Performing Organization Address City/[facility] Co de Phone Number [facility] [place] [address] * (ABNORMAL) POC, GLUCOSE (06/16/2024 12:09 AM EST) Glucometer, POC 222(H) 65 - 199 mg/dL 06/16/2024 12:[address] [facility] Comment:Supplemental ranges: <140 mg/dL before meals <180 mg/dL all other times of the day. Blood CAPILLARY BLOOD / Unknown 06/16/2024 12:09 AM EST 06/16/2024 12:09 AM EST Bobby Loja MD POINT OF CARE TEST O NIKA [facility] [place] [address] * (ABNORMAL) POC, GLUCOSE (06/15/2024 10:07 PM EST) Glucometer, POC 320(H) 65 - 199 mg/dL 06/15/2024 10:[address] [facility] Comment:Supplemental ranges: <140 mg/dL before meals <180 mg/dL all other times of the day. Blood CAPILLARY BLOOD / Unknown 06/15/2024 10:07 PM EST 06/15/2024 10:07 PM EST Bobby Loja MD POINT OF CARE TEST O RDERAPIETER Performing Organization Address [facility] Co de Phone Number [facility] [place] [address] * (ABNORMAL) POC, GLUCOSE (06/15/2024 7:56 PM EST) Glucometer, POC 304(H) 65 - 199 mg/dL 06/15/2024 7:[address] [facility] Comment:Supplemental ranges: <140 mg/dL before meals <180 mg/dL all other times of the day. Blood CAPILLARY BLOOD / Unknown 06/15/2024 7:56 PM EST 06/15/2024 7:56 PM EST Bobby Loja MD POINT OF CARE TEST O NIKA Performing Organization Address [facility] de Phone Number [facility] [place] [address] * (ABNORMAL) POC, GLUCOSE (06/15/2024 7:52 PM EST) Glucometer, POC 288(H) 65 - 199 mg/dL 06/15/2024 7:[address] [facility] Comment:Supplemental ranges: <140 mg/dL before meals <180 mg/dL all other times of the day. Blood CAPILLARY BLOOD / Unknown 06/15/2024 7:52 PM EST 06/15/2024 7:52 PM EST Bobby Loja MD POINT OF CARE TEST O NIKA Performing Organization Address [facility] Co de Phone Number [facility] [place] [address] * POC, GLUCOSE (06/15/2024 4:21 PM EST) Glucometer, POC 192 65 - 199 mg/dL 06/15/2024 4:[address] [facility] Comment:Supplemental ranges: <140 mg/dL before meals <180 mg/dL all other times of the day. Blood CAPILLARY BLOOD / Unknown 06/15/2024 4:21 PM EST 06/15/2024 4:21 PM EST Bobby Loja MD POINT OF CARE TEST O NIKA Performing Organization Address [facility] Co de Phone Number [facility] [place] [address] * POC, GLUCOSE (06/15/2024 3:27 PM EST) Glucometer, POC 155 65 - 199 mg/dL 06/15/2024 3:[address] [facility] Comment:Supplemental ranges: <140 mg/dL before meals <180 mg/dL all other times of the day. Blood CAPILLARY BLOOD / Unknown 06/15/2024 3:27 PM EST 06/15/2024 3:27 PM EST Bobby Loja MD POINT OF CARE TEST O NIKA Performing Organization Address [facility] Co de Phone Number [facility] [place] [address] * POC, GLUCOSE (06/15/2024 2:23 PM EST) Glucometer, POC 160 65 - 199 mg/dL 06/15/2024 2:[address] [facility] Comment:Supplemental ranges: <140 mg/dL before meals <180 mg/dL all other times of the day. Blood CAPILLARY BLOOD / Unknown 06/15/2024 2:23 PM EST 06/15/2024 2:23 PM EST Bobby Loja MD POINT OF CARE TEST Abimael MAHER Performing Organization Address City/[facility] Co de Phone Number [facility] [place] [address] * POC, GLUCOSE (06/15/2024 1:26 PM EST) Glucometer, POC 167 65 - 199 mg/dL 06/15/2024 1:[address] [facility] Comment:Supplemental ranges: <140 mg/dL before meals <180 mg/dL all other times of the day. Blood CAPILLARY BLOOD / Unknown 06/15/2024 1:26 PM EST 06/15/2024 1:26 PM EST Bobby Loja MD POINT OF CARE TEST O NIKA Performing Organization Address City/[facility]/ZIP Co de Phone Number [facility] [place] [address] * (ABNORMAL) POC, GLUCOSE (06/15/2024 12:55 PM EST) Glucometer, POC 210(H) 65 - 199 mg/dL 06/15/2024 12:[address] [facility] Comment:Supplemental ranges: <140 mg/dL before meals <180 mg/dL all other times of the day. Blood CAPILLARY BLOOD / Unknown 06/15/2024 12:55 PM EST 06/15/2024 12:55 PM EST Bobby Loja MD POINT OF CARE TEST O NIKA Performing Organization Address City/[facility]/ZIP Co de Phone Number [facility] [place] [address] * (ABNORMAL) POC, GLUCOSE (06/15/2024 11:29 AM EST) Glucometer, POC 220(H) 65 - 199 mg/dL 06/15/2024 11:[address] [facility] Comment:Supplemental ranges: <140 mg/dL before meals <180 mg/dL all other times of the day. Blood CAPILLARY BLOOD / Unknown 06/15/2024 11:29 AM EST 06/15/2024 11:29 AM EST Bobby Loja MD POINT OF CARE TEST O NIKA [facility] [place] [address] * (ABNORMAL) Basic Metabolic Panel (06/15/2024 11:23 AM EST) Glucose 215(H) 65 - 199 mg/dL 06/15/2024 12:08 PM [facility] Comment:Glucose [...] Loja MD CHEMISTRY ORDERABLES Performing Organization Address [facility] Co de Phone Number [facility] [place] [address] * POC, GLUCOSE (06/15/2024 10:29 AM EST) Glucometer, POC 189 65 - 199 mg/dL 06/15/2024 10:[address] [facility] Comment:Supplemental ranges: <140 mg/dL before meals <180 mg/dL all other times of the day. Blood CAPILLARY BLOOD / Unknown 06/15/2024 10:29 AM EST 06/15/2024 10:29 AM EST Bobby Loja MD POINT OF CARE TEST O RDERABLES Performing Organization Address [facility] Phone Number [facility] [place] [address] * POC, GLUCOSE (06/15/2024 9:45 AM EST) Glucometer, POC 178 65 - 199 mg/dL 06/15/2024 9:[address] [facility] Comment:Supplemental ranges: <140 mg/dL before meals <180 mg/dL all other times of the day. Blood CAPILLARY BLOOD / Unknown 06/15/2024 9:45 AM EST 06/15/2024 9:45 AM EST Narrative Authorizing Provider Result Saranya Loja MD POINT OF CARE TEST O RDERABLES Performing Organization Address [facility] Co de Phone Number [facility] [place] [address] * (ABNORMAL) Cooximetry, POC (06/15/2024 9:31 AM EST) pO2, Coox 38 mmHg 06/15/2024 9:[address] [facility] Hemoglobin, Coox 12.9(L) 13.7 - 16.5 g/dL 06/15/2024 9:34 AM [facility] Oxyhemoglobin, Coox 72.1 % 06/15/2024 9:34 AM [facility] Carboxyhemoglo bin, Coox 0.9 % 06/15/2024 9:34 AM [facility] Comment: Nonsmokers: 0.5-1.5% COHB ?? Smokers: Variable ??but usually less than 10% ?? Toxic: 20-30% COHB ?? Lethal: Greater than 60% COHB Methemoglobin, Coox 0.3 <=1.5 % 06/15/2024 9:34 AM [facility] Blood (Mixed Venous) 06/15/2024 9:31 AM EST 06/15/2024 9:34 AM EST Bobby Loja MD POINT OF CARE TEST O NIKA Performing Organization Address City/[facility] Co de Phone Number [facility] [place] [address] * Cooximetry, POC (06/15/2024 9:22 AM EST) pO2, Coox 30 mmHg 06/15/2024 9:25 AM [facility] Hemoglobin, Coox 06/15/2024 9:25 AM [facility] Comment:QUES Oxyhemoglobin, Coox 06/15/2024 9:25 AM [facility] Comment:QUES Carboxyhemoglo bin, Coox 06/15/2024 9:25 AM [facility] Comment:QUES Methemoglobin, Coox 06/15/2024 9:25 AM [facility] Comment:QUES Blood (Mixed Venous) 06/15/2024 9:22 AM EST 06/15/2024 9:25 AM EST Bobby Loja MD POINT OF CARE TEST O NIKA Performing Organization Address City/State/[facility] Co de Phone Number [facility] [place] [address] * (ABNORMAL) Blood Gas, Arterial POC (06/15/2024 [...] - 2.2 mmol/L 06/15/2024 9:[address] [facility] Flow Rate 2.0 L/min 06/15/2024 9:21 AM [facility] IONIZED CALCIUM, ARTERIAL 1.14(L) 1.15 - 1.33 mmol/L 06/15/2024 9:21 AM [facility] Glucose, Arterial 193 65 - 199 mg/dL 06/15/2024 9:21 AM [facility] Comment:Glucose Concentratio n >=200 mg/dL plus symptoms is consistent with Diabetes Mellitus. Blood ARTERIAL BLOOD / Unknown 06/15/2024 9:19 AM EST 06/15/2024 9:20 AM EST Bobby Loja MD POINT OF CARE TEST O RDERAPIETER Performing Organization Address City/[facility]/ZIP Co de Phone Number [facility] [place] [address] * (ABNORMAL) POC, GLUCOSE (06/15/2024 8:37 AM EST) Glucometer, POC 204(H) 65 - 199 mg/dL 06/15/2024 8:[address] [facility] Comment:Supplemental ranges: <140 mg/dL before meals <180 mg/dL all other times of the day. Blood CAPILLARY BLOOD / Unknown 06/15/2024 8:37 AM EST 06/15/2024 8:37 AM EST Bobby Loja MD POINT OF CARE TEST O NIKA Performing Organization Address City/[facility]/ZIP Co de Phone Number [facility] [place] [address] * POC, GLUCOSE (06/15/2024 7:37 AM EST) Glucometer, POC 199 65 - 199 mg/dL 06/15/2024 7:[address] [facility] Comment:Supplemental ranges: <140 mg/dL before meals <180 mg/dL all other times of the day. Blood CAPILLARY BLOOD / Unknown 06/15/2024 7:37 AM EST 06/15/2024 7:38 AM EST Bobby Loja MD POINT OF CARE TEST O NIKA Performing Organization Address [facility] Co de Phone Number [facility] [place] [address] * (ABNORMAL) POC, GLUCOSE (06/15/2024 7:01 AM EST) Glucometer, POC 203(H) 65 - 199 mg/dL 06/15/2024 7:[address] [facility] Comment:Supplemental ranges: <140 mg/dL before meals <180 mg/dL all other times of the day. Blood CAPILLARY BLOOD / Unknown 06/15/2024 7:01 AM EST 06/15/2024 7:01 AM EST Bobby Loja MD POINT OF CARE TEST O NIKA Performing Organization Address [facility] Co de Phone Number [facility] [place] [address] * XR Chest One View (06/15/2024 6:31 AM EST) WORKSTATION ID [id number] RAD Anatomical Region Laterality Modality Chest N/A [...] questions please contact the health client care specialist that requested your imaging first. ? Electronically signed by: Stuart Aponte MD, [facility] ??([phone]), at 06/15/2024 10:38 AM Narrative 06/15/2024 10:38 [...] have questions please contactthe health client care specialist that requested your imaging first. Bobby Loja MD IMG DX ORDERABLES * POC, GLUCOSE (06/15/2024 6:02 AM EST) [facility] Glucometer, POC 179 65 - 199 mg/dL 06/15/2024 6:[address] [facility] Comment:Supplemental ranges: <140 mg/dL before meals <180 mg/dL all other times of the day. Blood CAPILLARY BLOOD / Unknown 06/15/2024 6:02 AM EST 06/15/2024 6:02 AM EST Bobby Loja MD POINT OF CARE TEST O NIKA Performing Organization Address City/[facility]/ZIP Co de Phone Number [facility] [place] [address] * POC, GLUCOSE (06/15/2024 5:06 AM EST) Glucometer, POC 160 65 - 199 mg/dL 06/15/2024 5:[address] [facility] Comment:Supplemental ranges: <140 mg/dL before meals <180 mg/dL all other times of the day. Blood CAPILLARY BLOOD / Unknown 06/15/2024 5:06 AM EST 06/15/2024 5:06 AM EST Bobby Loja MD POINT OF CARE TEST O NIKA Performing Organization Address City/[facility] Co de Phone Number [facility] [place] [address] * POC, GLUCOSE (06/15/2024 4:05 AM EST) Glucometer, POC 160 65 - 199 mg/dL 06/15/2024 4:[address] [facility] Comment:Supplemental ranges: <140 mg/dL before meals <180 mg/dL all other times of the day. Blood CAPILLARY BLOOD / Unknown 06/15/2024 4:05 AM EST 06/15/2024 4:06 AM EST Narrative Authorizing Provider Result Saranya Loja MD POINT OF CARE TEST O NIKA [facility] [place] [address] * POC, GLUCOSE (06/15/2024 3:07 AM EST) Glucometer, POC 151 65 - 199 mg/dL 06/15/2024 3:07 AM [facility] Comment:Supplemental ranges: <140 mg/dL before meals <180 mg/dL all other times of the day. Blood CAPILLARY BLOOD / Unknown 06/15/2024 3:07 AM EST 06/15/2024 3:07 AM EST Bobby Loja MD POINT OF CARE TEST O NIKA [facility] [place] [address] * (ABNORMAL) Basic Metabolic Panel (06/15/2024 1:48 AM EST) Glucose 140 65 - 199 mg/dL 06/15/2024 2:38 AM [facility] Comment:Glucose [...] Loja MD CHEMISTRY ORDERABLES Performing Organization Address City/State/[facility] Co de Phone Number [facility] [place] [address] * (ABNORMAL) CBC (with Diff) (06/15/2024 1:48 AM EST) White Blood Cell 11.71(H) 4.00 - 9.50 x10(3)/mc L 06/15/2024 2:[address] [facility] Red Blood Cell 4.14(L) 4.58 - 5.54 x10(6)/mc L 06/15/2024 2:13 AM [facility] Hemoglobin 12.5(L) 13.7 - [...] % 0.2 % 06/15/2024 2:[address] [facility] Baso Absolute <0.04 0.00 - 0.10 x10(3)/mc L 06/15/2024 2:[address] [facility] Immature Gran % 0.5 % 2:[address] [facility] Immature Gran Absolute 0.06(H) 0.00 - 0.04 x10(3)/mc L 06/15/2024 2:[address] [facility] Blood VENOUS BLOOD SPECIMEN / Unknown Venipuncture / Unknown 06/15/2024 1:48 AM EST 06/15/2024 1:52 AM EST Bobby Loja MD HEMATOLOGY ORDERABLE S [facility] [place] [address] * (ABNORMAL) Troponin - Single (06/15/2024 1:48 AM EST) Troponin-T, High Sensitivity 667(H) <=22 ng/L 06/15/2024 2:[address] [facility] Comment: This patient's troponin T [...] [facility] Test Catalog Troponin - [email or web address]/catalogs/565/[email or web address] Reference: Fourth [place] Definition of Myocardial Infarction. Journal of the [place] [employer] 2018;72:6253-9661 Blood VENOUS BLOOD SPECIMEN / Unknown Venipuncture / Unknown 06/15/2024 1:48 AM EST 06/15/2024 1:52 AM EST Bobby Loja MD CHEMISTRY ORDERABLES [facility] [place] [address] * (ABNORMAL) Blood Gas, Arterial POC (06/15/2024 1:46 AM EST) pH, Arterial 7.33(L) 7.35 - 7.45 06/15/2024 1:47 AM [facility] PCO2, [...] Arterial 0.3 <=1.5 % 06/15/2024 1:47 AM [facility] Sodium, Arterial 139 135 [...] MD POINT OF CARE TEST O RDERABLES [facility] [place] [address] * POC, GLUCOSE (06/15/2024 1:05 AM EST) Glucometer, POC 116 65 - 199 mg/dL 06/15/2024 1:05 AM [facility] Comment:Supplemental ranges: <140 mg/dL before meals <180 mg/dL all other times of the day. Blood CAPILLARY BLOOD / Unknown 06/15/2024 1:05 AM EST 06/15/2024 1:05 AM EST Bobby Loja MD POINT OF CARE TEST O NIKA Performing Organization Address [facility] Co de Phone Number [facility] [place] [address] * POC, GLUCOSE (06/15/2024 12:16 AM EST) Glucometer, POC 135 65 - 199 mg/dL 06/15/2024 12:[address] [facility] Comment:Supplemental ranges: <140 mg/dL before meals <180 mg/dL all other times of the day. Blood CAPILLARY BLOOD / Unknown 06/15/2024 12:16 AM EST 06/15/2024 12:16 AM EST Bobby Loja MD POINT OF CARE TEST O NIKA Performing Organization Address [facility] de Phone Number [facility] [place] [address] * Potassium (06/14/2024 11:28 PM EST) Potassium 4.1 3.5 - 5.0 mMol/L 06/14/2024 11:[address] [facility] Blood VENOUS BLOOD SPECIMEN / Unknown Venipuncture / Unknown 06/14/2024 11:28 PM EST 06/14/2024 11:34 PM EST Bboby Loja MD CHEMISTRY ORDERABLES Performing Organization Address [facility] Co de Phone Number [facility] [place] [address] * POC, GLUCOSE (06/14/2024 10:58 PM EST) Glucometer, POC 126 65 - 199 mg/dL 06/14/2024 10:[address] [facility] Comment:Supplemental ranges: <140 mg/dL before meals <180 mg/dL all other times of the day. Blood CAPILLARY BLOOD / Unknown 06/14/2024 10:58 PM EST 06/14/2024 10:59 PM EST Bobby Loja MD POINT OF CARE TEST O NIKA Performing Organization Address [facility] Co de Phone Number [facility] [place] [address] * POC, GLUCOSE (06/14/2024 9:55 PM EST) Glucometer, POC 152 65 - 199 mg/dL 06/14/2024 9:[address] [facility] Comment:Supplemental ranges: <140 mg/dL before meals <180 mg/dL all other times of the day. Blood CAPILLARY BLOOD / Unknown 06/14/2024 9:55 PM EST 06/14/2024 9:56 PM EST Bobby Loja MD POINT OF CARE TEST Abimael MAHER Performing Organization Address [facility] Co de Phone Number [facility] [place] [address] * POC, GLUCOSE (06/14/2024 8:54 PM EST) Glucometer, POC 151 65 - 199 mg/dL 06/14/2024 8:[address] [facility] Comment:Supplemental ranges: <140 mg/dL before meals <180 mg/dL all other times of the day. Blood CAPILLARY BLOOD / Unknown 06/14/2024 8:54 PM EST 06/14/2024 8:54 PM EST Bobby Loja MD POINT OF CARE TEST Abimael MAHER Performing Organization Address City/[facility] Co de Phone Number [facility] [place] [address] * POC, GLUCOSE (06/14/2024 7:51 PM EST) Glucometer, POC 169 65 - 199 mg/dL 06/14/2024 7:[address] [facility] Comment:Supplemental ranges: <140 mg/dL before meals <180 mg/dL all other times of the day. Blood CAPILLARY BLOOD / Unknown 06/14/2024 7:51 PM EST 06/14/2024 7:52 PM EST Narrative Authorizing Provider Result Saranya Loja MD POINT OF CARE TEST O NIKA Performing Organization Address [facility] Co de Phone Number [facility] [place] [address] * POC, GLUCOSE (06/14/2024 6:49 PM EST) Glucometer, POC 194 65 - 199 mg/dL 06/14/2024 6:[address] [facility] Comment:Supplemental ranges: <140 mg/dL before meals <180 mg/dL all other times of the day. Blood CAPILLARY BLOOD / Unknown 06/14/2024 6:49 PM EST 06/14/2024 6:50 PM EST Narrative Authorizing Provider Result Saranya Loja MD POINT OF CARE TEST O NIKA Performing Organization Address [facility] Co de Phone Number [facility] [place] [address] * (ABNORMAL) Hemoglobin (06/14/2024 6:19 PM EST) Hemoglobin 13.1(L) 13.7 - 16.5 g/dL 06/14/2024 7:[address] [facility] Blood VENOUS BLOOD SPECIMEN / Unknown Venipuncture / Unknown 06/14/2024 6:19 PM EST 06/14/2024 6:28 PM EST Narrative Authorizing Provider Result Saranya Loja MD HEMATOLOGY ORDERABLE S Performing Organization Address City/[facility]/ZIP Co de Phone Number [facility] [place] [address] * Potassium (06/14/2024 6:19 PM EST) Potassium 3.9 3.5 - 5.0 mMol/L 06/14/2024 6:[address] [facility] Blood VENOUS BLOOD SPECIMEN / Unknown Venipuncture / Unknown 06/14/2024 6:19 PM EST 06/14/2024 6:28 PM EST Bobby Loja MD CHEMISTRY ORDERABLES Performing Organization Address [facility]/ZIP Co de Phone Number [facility] [place] [address] * (ABNORMAL) POC, GLUCOSE (06/14/2024 6:03 PM EST) [facility] Glucometer, POC 201(H) 65 - 199 mg/dL 06/14/2024 6:[address] [facility] Comment:Supplemental ranges: <140 mg/dL before meals <180 mg/dL all other times of the day. Blood CAPILLARY BLOOD / Unknown 06/14/2024 6:03 PM EST 06/14/2024 6:03 PM EST Bobby Loja MD POINT OF CARE TEST O RDERABLES Performing Organization Address City/[facility]/ZIP Co de Phone Number [facility] [place] [address] * (ABNORMAL) Blood Gas, Arterial POC (06/14/2024 4:51 PM EST) [facility] Signature pH, Arterial 7.32(L) 7.35 - 7.45 06/14/2024 4:[address] [facility] PCO2, Arterial 46(H) 35 - 45 mmHg 06/14/2024 4:[address] [facility] PO2, Arterial 85 85 - 104 mmHg 06/14/2024 4:[address] [facility] Bicarbonate, Arterial 23.1 20.0 - 26.0 mmol/L 06/14/2024 4:[address] [facility] Base Excess, Arterial -3.1(L) -3.0 - 3.0 mmol/L 06/14/2024 4:[address] [facility] Hemoglobin, Arterial 14.3 13.7 - 16.5 g/dL 06/14/2024 4:52 PM [facility] Oxyhemoglobin, Arterial 94.7 94.0 - 97.0 % 06/14/2024 4:52 PM [facility] Carboxyhemoglobin , Arterial 0.6 % 06/14/2024 4:52 PM [facility] Comment: Nonsmokers: 0.5-1.5% COHB ?? Smokers: Variable ??but usually less than 10% ?? Toxic: 20-30% COHB ?? Lethal: Greater than 60% COHB Methemoglobin, Arterial 0.0 <=1.5 % 06/14/2024 4:52 PM [facility] Sodium, Arterial 138 135 - 145 mmol/L 06/14/2024 4:52 PM [facility] Potassium, Arterial 4.1 3.5 [...] 65 - 199 mg/dL 06/14/2024 4:52 PM [facility] Comment:Glucose Concentratio n >=200 mg/dL plus symptoms is consistent with Diabetes Mellitus. Blood ARTERIAL BLOOD / Unknown 06/14/2024 4:51 PM EST 06/14/2024 4:52 PM EST Bobby Loja MD POINT OF CARE TEST O RDERABLES [facility] [place] [address] * POC, GLUCOSE (06/14/2024 4:00 PM EST) Glucometer, POC 184 65 - 199 mg/dL 06/14/2024 4:[address] [facility] Comment:Supplemental ranges: <140 mg/dL before meals <180 mg/dL all other times of the day. Blood CAPILLARY BLOOD / Unknown 06/14/2024 4:00 PM EST 06/14/2024 4:01 PM EST Bobby Loja MD POINT OF CARE TEST O RDERABLES Performing Organization Address [facility] de Phone Number [facility] [place] [address] * XR Chest One View (06/14/2024 3:05 PM EST) [facility] WORKSTATION ID [id number] RAD Anatomical Region Laterality Modality Chest N/A [...] questions please contact the health client care specialist that requested your imaging first. ? Electronically signed by: Stuart Aponte MD, [facility] ??([phone]), at 06/14/2024 4:07 PM Narrative 06/14/2024 4:07 [...] have questions please contactthe health client care specialist that requested your imaging first. Bobby Loja [...] - 107 mmol/L 06/14/2024 2:[address] [facility] Lactate, Arterial 1.1 0.5 - 2.2 mmol/L 06/14/2024 2:[address] [facility] Fraction of Inspired Oxygen 100 % 06/14/2024 2:[address] [facility] PF Ratio 510 Ratio 06/14/2024 2:[address] [facility] Comment:PF ratio calculated using the non-temperature corrected pO2 result. IONIZED CALCIUM, ARTERIAL 1.15 1.15 - 1.33 mmol/L 06/14/2024 2:[address] [facility] Glucose, Arterial 169 65 - 199 mg/dL 06/14/2024 2:[address] [facility] Comment:Glucose Concentratio n >=200 mg/dL plus symptoms is consistent with Diabetes Mellitus. Blood ARTERIAL BLOOD / Unknown 06/14/2024 2:52 PM EST 06/14/2024 2:53 PM EST Bobby Loja MD POINT OF CARE TEST O RDERABLES [facility] [place] [address] * EKG 12 Lead (06/14/2024 2:46 PM EST) Ventricular rate 80 BPM MUSE SYSTEM Atrial Rate 80 BPM MUSE SYSTEM P-R Interval 120 ms MUSE SYSTEM QRS Duration 108 ms MUSE SYSTEM Q-T Interval 454 ms MUSE SYSTEM QTC Calculated (Bezet) 523 ms MUSE SYSTEM Calculated P [place] 70 degrees MUSE SYSTEM Calculated R [place] 56 degrees MUSE SYSTEM Calculated T [place] 50 degrees MUSE SYSTEM INTERPRETATION AV dual-paced rhythm Abnormal ECG When compared with ECG of 03-JUN-2024 01:45, Vent. rate has increased BY ??17 BPM Confirmed by MD Marisol, Shaheen ([id number]) on 06/15/2024 1:57:23 PM MUSE SYSTEM 06/14/2024 2:46 PM EST 06/15/2024 1:57 PM EST Bobby Loja MD ECG ORDERABLES MUSE SYSTEM * Prepare RBC (06/14/2024 2:27 PM EST) Status Information Returned [facility] Product Identification RBC [facility] Unit Number [id number] [facility] Product Code [id number] [facility] Unit Blood Type OPOS [facility] Specimen Expiration Date [facility] Volulme 350 [facility] Issue Date / Time [facility] Status [facility] Returned [facility] Product Identification RBC [facility] Unit Number [id number] [facility] Product Code [id number] [facility] Unit Blood Type OPOS [facility] Specimen Expiration Date [facility] Volulme 350 [facility] Issue Date / Time [facility] Blood 06/14/2024 6:2 5 AM EST Haja Byrnes MD BLOOD BANK PRODUCT O RDERABLES [facility] [place] [place] [address] * (ABNORMAL) Cooximetry, POC (06/14/2024 1:52 PM EST) pO2, Coox 58 mmHg 06/14/2024 1:[address] [facility] Hemoglobin, Coox 12.6(L) 13.7 - 16.5 g/dL 06/14/2024 1:[address] [facility] Oxyhemoglobin, Coox 85.5 % 06/14/2024 1:[address] [facility] Carboxyhemoglo bin, Coox 0.3 % 06/14/2024 1:[address] [facility] Comment: Nonsmokers: 0.5-1.5% COHB ?? Smokers: Variable ??but usually less than 10% ?? Toxic: 20-30% COHB ?? Lethal: Greater than 60% COHB Methemoglobin, Coox 0.6 <=1.5 % 06/14/2024 1:[address] [facility] Blood (Mixed Venous) 06/14/2024 1:52 PM EST 06/14/2024 1:55 PM EST Haja Byrnes MD POINT OF CARE TEST O NIKA [facility] [place] [address] * (ABNORMAL) Blood Gas, Arterial POC (06/14/2024 12:47 PM EST) pH, Arterial 7.33(L) 7.35 - 7.45 06/14/2024 12:48 PM [facility] PCO2, [...] 0.5 <=1.5 % 06/14/2024 12:[address] [facility] Sodium, Arterial 135 135 - 145 mmol/L 06/14/2024 12:[address] [facility] Potassium, Arterial 5.0 3.5 - 5.0 mmol/L 06/14/2024 12:[address] [facility] Chloride, Arterial 106 98 - 107 mmol/L 06/14/2024 12:[address] [facility] Lactate, Arterial 1.4 0.5 - 2.2 mmol/L 06/14/2024 12:[address] [facility] IONIZED CALCIUM, ARTERIAL 1.09(L) 1.15 - 1.33 mmol/L 06/14/2024 12:48 PM [facility] Glucose, Arterial 157 65 - 199 mg/dL 06/14/2024 12:[address] [facility] Comment:Glucose Concentratio n >=200 mg/dL plus symptoms is consistent with Diabetes Mellitus. Blood ARTERIAL BLOOD / Unknown 06/14/2024 12:47 PM EST 06/14/2024 12:48 PM EST Haja Byrnes MD POINT OF CARE TEST O RDERABLES [facility] [place] [address] * (ABNORMAL) Cooximetry, POC (06/14/2024 12:42 PM EST) pO2, Coox 71 mmHg 06/14/2024 12:[address] [facility] Hemoglobin, Coox 11.6(L) 13.7 - 16.5 g/dL 06/14/2024 12:[address] [facility] Oxyhemoglobin, Coox 91.5 % 06/14/2024 12:[address] [facility] Carboxyhemoglo bin, Coox 0.3 % 06/14/2024 12:[address] [facility] Comment: Nonsmokers: 0.5-1.5% COHB ?? Smokers: Variable ??but usually less than 10% ?? Toxic: 20-30% COHB ?? Lethal: Greater than 60% COHB Methemoglobin, Coox 0.4 <=1.5 % 06/14/2024 12:[address] [facility] Blood (Mixed Venous) 06/14/2024 12:42 PM EST 06/14/2024 12:45 PM EST Haja Byrnes MD POINT OF CARE TEST O RDERABLES [facility] [place] [address] * (ABNORMAL) Platelet count (06/14/2024 12:30 PM EST) Platelet 73(L) 145 - 357 x10(3)/mcL 06/14/2024 12:[address] [facility] Blood ARTERIAL BLOOD / Unknown 06/14/2024 12:30 PM EST Comment:Pre-op diagnosis: CAD Bobby Loja MD HEMATOLOGY ORDERABLE S Performing Organization Address City/[facility]/ZIP Co de Phone Number [facility] [place] [address] * (ABNORMAL) Hemoglobin and Hematocrit, blood (06/14/2024 12:30 PM EST) Hemoglobin 10.9(L) 13.7 - 16.5 g/dL 06/14/2024 12:[address] [facility] Hematocrit 33.5(L) 40.5 - 48.5 % 06/14/2024 12:[address] [facility] Comment:This result has been called to Danielle López by Satya Page on 06/14/2024 12:53:56, and has been read back. Blood ARTERIAL BLOOD / Unknown 06/14/2024 12:30 PM EST 06/14/2024 12:42 PM EST Comment:Pre-op diagnosis: CAD Bobby Loja MD HEMATOLOGY ORDERABLE S Performing Organization Address [facility] Co de Phone Number [facility] [place] [address] * APTT (06/14/2024 12:30 PM EST) Partial Thromboplastin Time 31 25 - 37 sec 06/14/2024 12:[address] [facility] Comment: The PTT is NOT appropriate for heparin monitoring. Use the Anti-Xa level for heparin monitoring (HEP UFH) or LMWH monitoring (HEP LMW). A PTT less than 37 seconds generally indicates adequate hemostasis. Blood ARTERIAL BLOOD / Unknown 06/14/2024 12:30 PM EST 06/14/2024 12:42 PM EST Comment:Pre-op diagnosis: CAD Bobby Loja MD HEMATOLOGY ORDERABLE S Performing Organization Address [facility] de Phone Number [facility] [place] [address] * (ABNORMAL) Prothrombin Time (06/14/2024 12:30 PM EST) Prothrombin Time 16.8(H) 9.4 - 12.5 sec 06/14/2024 12:[address] [facility] International Normalization Ratio 1.5 <=4.9 06/14/2024 12:[address] [facility] Comment: An INR < 2.0 [...] MD HEMATOLOGY ORDERABLE S Performing Organization Address [facility]/ZIP Co de Phone Number [facility] [place] [address] * Fibrinogen (06/14/2024 12:30 PM EST) Fibrinogen 211 200 - 393 mg/dL 06/14/2024 12:[address] [facility] Comment: A fibrinogen level >100 mg/dL is adequate for hemostasis in most patients without underlying bleeding disorders. Blood ARTERIAL BLOOD / Unknown 06/14/2024 12:30 PM EST 06/14/2024 12:42 PM EST Comment:Pre-op diagnosis: CAD Bobby Loja MD HEMATOLOGY ORDERABLE S [facility] [place] [address] * (ABNORMAL) Blood Gas, Arterial POC (06/14/2024 12:15 PM EST) pH, Arterial 7.38 7.35 - 7.45 06/14/2024 12:[address] [facility] PCO2, Arterial 40 35 - 45 mmHg 06/14/2024 12:16 PM [facility] Bicarbonate, Arterial 22.9 20.0 - 26.0 mmol/L 06/14/2024 12:16 PM [facility] Base Excess, Arterial -2.3 -3.0 - 3.0 mmol/L 06/14/2024 12:[address] [facility] Hemoglobin, Arterial 11.4(L) 13.7 - 16.5 g/dL 06/14/2024 12:16 PM [facility] Oxyhemoglobin, Arterial 98.8(H) 94.0 - 97.0 % 06/14/2024 12:[address] [facility] Carboxyhemoglobin , Arterial 0.3 % [...] MD POINT OF CARE TEST O RDERABLES [facility] [place] [address] * (ABNORMAL) Blood Gas, Arterial POC (06/14/2024 11:51 AM EST) pH, Arterial 7.40 7.35 - 7.45 06/14/2024 11:[address] [facility] PCO2, Arterial 41 35 - [...] MD POINT OF CARE TEST O RDERABLES [facility] [place] [address] * (ABNORMAL) Blood Gas, Arterial POC (06/14/2024 [...] 0.5 - 2.2 mmol/L 06/14/2024 11:28 AM [facility] IONIZED CALCIUM, ARTERIAL 1.03(L) 1.15 - 1.33 mmol/L 06/14/2024 11:28 AM [facility] Glucose, Arterial 147 65 - 199 mg/dL 06/14/2024 11:28 AM [facility] Comment:Glucose Concentratio n >=200 mg/dL plus symptoms is consistent with Diabetes Mellitus. Blood ARTERIAL BLOOD / Unknown 06/14/2024 11:27 AM EST 06/14/2024 11:28 AM EST Haja Byrnes MD POINT OF CARE TEST O RDERABLES [facility] [place] [address] * (ABNORMAL) Scan, Peripheral Blood (06/14/2024 11:23 AM EST) Pathologist [facility] [place] RBC Morphology Abnormal 06/14/2024 11:59 AM [facility] Platelet Estimate Decreased(A) Normal 06/14/2024 11:59 AM [facility] Aretha cells 1-5 /HPF 06/14/2024 11:59 AM [facility] Blood ARTERIAL BLOOD / Unknown 06/14/2024 11:23 AM EST 06/14/2024 11:27 AM EST Bobby Loja MD HEMATOLOGY ORDERABLE S [facility] [place] [address] * (ABNORMAL) Platelet count (06/14/2024 11:23 AM EST) Platelet 86(L) 145 - 357 x10(3)/mcL 06/14/2024 11:[address] [facility] Blood ARTERIAL BLOOD / Unknown 06/14/2024 11:23 AM EST Comment:Pre-op diagnosis: CAD Bobby Loja MD HEMATOLOGY ORDERABLE S Performing Organization Address City/[facility]/ZIP Co de Phone Number [facility] [place] [address] * (ABNORMAL) Hemoglobin and Hematocrit, blood (06/14/2024 11:23 AM EST) Hemoglobin 9.8(L) 13.7 - 16.5 g/dL 06/14/2024 11:[address] [facility] Comment:This result has been called to Danielle López by Satya Page on 06/14/2024 11:58:33. Hematocrit 30.5(L) 40.5 - 48.5 % 06/14/2024 11:[address] [facility] Comment:This result has been called to Danielle López by Satya Page on 06/14/2024 11:58:40, and has been read back. Blood ARTERIAL BLOOD / Unknown 06/14/2024 11:23 AM EST 06/14/2024 11:27 AM EST Comment:Pre-op diagnosis: CAD Bobby Loja MD HEMATOLOGY ORDERABLE S [facility] [place] [address] * (ABNORMAL) Blood Gas, Arterial POC (06/14/2024 10:58 AM EST) pH, Arterial 7.38 7.35 - 7.45 06/14/2024 10:[address] [facility] PCO2, Arterial 43 35 - 45 mmHg 06/14/2024 10:[address] [facility] PO2, Arterial 401(H) 85 - 104 mmHg 06/14/2024 10:[address] [facility] Bicarbonate, Arterial 24.8 20.0 - 26.0 mmol/L 06/14/2024 10:59 AM [facility] Base Excess, Arterial -0.5 -3.0 - 3.0 mmol/L 06/14/2024 10:59 AM [facility] Hemoglobin, Arterial 11.9(L) 13.7 [...] MD POINT OF CARE TEST O RDERAPIETER [facility] [place] [address] * (ABNORMAL) Blood Gas, Arterial POC (06/14/2024 [...] MD POINT OF CARE TEST O RDERABLES [facility] [place] [address] * (ABNORMAL) Blood Gas, Arterial POC (06/14/2024 [...] MD POINT OF CARE TEST O RDERABLES [facility] [place] [address] * Surgical Pathology (06/14/2024 9:53 AM EST) Case Report Surgical Pathology Report ? Case: [id number] ? Authorizing Provider: ??Bobby Loja, ? Collected: ? 06/14/2024 0953 ? Ordering Location: ? Main Operating Room Kristen ?? Received: ?06/14/2024 1413 ? [facility] ? Pathologist: ? Sandra Salas, MD ? Specimens: ?? A) - Soft Tissue Mass, mediastinal mass ? B) - Heart, Atrial Appendage, Left ? 06/18/2024 10:18 AM [facility] Final Diagnosis A. Soft [...] Inking: External surface inked black Sections/Process ing: Associate Professor Plant Pathology sections in 4 cassettes labeled A1-A4. cmk B. Heart, Atrial Appendage, Left, . B - Labeled/Fixative : Heart, atrial appendage, left, fresh. Quantity/Size: Single, 3.3 x 1.5 x 0.8 cm. Tissue Description: Portion of heart tissue consisting of rodriguez-white, semitranslucent, smooth endocardium with rodriguez-brown muscular myocardium and thin translucent epicardium with adherent adipose tissue. No areas of discoloration identified. Sections/Process ing: Associate Professor Plant Pathology sections in 1 cassette labeled B1. cmk 06/18/2024 10:18 AM [facility] Result Note Routine 06/18/2024 10:18 AM [facility] Tissue SOFT TISSUE MASS / Unknown 06/14/2024 9:53 AM EST 06/14/2024 2:13 PM EST Comment:Mediastinal mass Tissue specimen (specimen) LEFT ATRIAL APPENDAGE ABSENT / Unknown 06/14/2024 10:54 AM EST 06/14/2024 2:13 PM EST Comment:MRAIALUISA Bobby Loja MD PATHOLOGY/CYTOLOGY O RDERABLES [facility] [place] [address] * Cooximetry, POC (06/14/2024 9:00 AM EST) pO2, Coox 57 mmHg 06/14/2024 9:[address] [facility] PO2 Corrected, COOX 50 mmHg 06/14/2024 9:[address] [facility] Hemoglobin, Coox 14.3 13.7 - 16.5 g/dL 06/14/2024 9:04 AM [facility] Oxyhemoglobin, Coox 86.2 % 06/14/2024 9:[address] [facility] Carboxyhemoglobi n, Coox 0.3 % 06/14/2024 9:[address] [facility] Comment: Nonsmokers: 0.5-1.5% COHB ?? Smokers: Variable ??but usually less than 10% ?? Toxic: 20-30% COHB ?? Lethal: Greater than 60% COHB Methemoglobin, Coox 0.3 <=1.5 % 06/14/2024 9:[address] [facility] Temperature Coox 35.2 C 06/14/20 24 9:[address] [facility] Blood (Mixed Venous) 06/14/2024 9:00 AM EST 06/14/2024 9:04 AM EST Haja Byrnes MD POINT OF CARE TEST O RDERAPIETER [facility] [place] [address] * (ABNORMAL) Blood Gas, Arterial POC (06/14/2024 [...] - 199 mg/dL 06/14/2024 8:[address] [facility] Comment:Glucose Concentratio n >=200 mg/dL plus symptoms is consistent with Diabetes Mellitus. Blood ARTERIAL BLOOD / Unknown 06/14/2024 8:39 AM EST 06/14/2024 8:40 AM EST Haja Byrnes MD POINT OF CARE TEST O RDERABLES [facility] [place] [address] * Transesophageal Echo/OR (06/14/2024 7:20 AM EST) Anatomical Region Laterality Modality Cardiac Other 06/14/2024 7:20 AM EST Narrative 06/14/2024 4:36 PM EST Version: 2 Study ID: [id number] [address] [place] [address] ?OR Transesophageal Echo Report Name: GEORGE MEHTA [...] of this mass after consultation with other forest aide experts and the decision was made by [...] MD - 06/14/2024 Version: 2 Study ID: [id number] [address] [place], [place] [id number] ORTransesophageal Echo Report Name: GEORGE MEHTA Study [...] of this mass after consultation with other forest aide experts and thedecision was made by surgeon [...] aorta. Other Measurements & Calculations Ao Max Muirel: 106.6 cm/sec Ao mean velocity: 74.5cm/sec Ao [...] - 199 mg/dL 06/14/2024 7:[address] [facility] Comment:Supplemental ranges: <140 mg/dL before meals <180 mg/dL all other times of the day. Blood CAPILLARY BLOOD / Unknown 06/14/2024 7:11 AM EST 06/14/2024 7:12 AM EST Haja Byrnes MD POINT OF CARE TEST O NIKA Performing Organization Address [facility] Co de Phone Number [facility] [place] [address] * POC, GLUCOSE (06/14/2024 4:30 AM EST) Glucometer, POC 85 65 - 199 mg/dL 06/14/2024 4:[address] [facility] Comment:Supplemental ranges: <140 mg/dL before meals <180 mg/dL all other times of the day. Blood CAPILLARY BLOOD / Unknown 06/14/2024 4:30 AM EST 06/14/2024 4:30 AM EST Haja Byrnes MD POINT OF CARE TEST Abimael MAHER Performing Organization Address [facility]/ZIP Co de Phone Number [facility] [place] [address] * (ABNORMAL) Heparin (unfractionated) Level (06/14/2024 12:12 AM EST) UF Heparin 1.02([facility]) IU/mL 06/14/2024 12:[address] [facility] Comment: Heparin (anti-Xa) levels should [...] MD HEMATOLOGY ORDERABLE S Performing Organization Address City/State/[facility] Co de Phone Number [facility] [place] [address] * (ABNORMAL) CBC (with Diff) (06/14/2024 12:12 [...] 0.10 x10(3)/mc L 06/14/2024 12:[address] [facility] Immature Gran % 0.6 % 12:38 AM [facility] Immature Gran Absolute 0.06(H) 0.00 - 0.04 x10(3)/mc L 06/14/2024 12:[address] [facility] Blood VENOUS BLOOD SPECIMEN / Unknown Venipuncture / Unknown 06/14/2024 12:12 AM EST 06/14/2024 12:29 AM EST Shahnaz Scanlon MD HEMATOLOGY ORDERABLE S [facility] [place] [address] * Magnesium (06/14/2024 12:12 AM EST) Magnesium 0.74 0.69 - 1.07 mMol/L 06/14/2024 12:57 AM [facility] Blood VENOUS BLOOD SPECIMEN / Unknown Venipuncture / Unknown 06/14/2024 12:12 AM EST 06/14/2024 12:29 AM EST Shahnaz Scanlon MD CHEMISTRY ORDERABLES [facility] [place] [address] * (ABNORMAL) Basic Metabolic Panel (06/14/2024 12:12 AM EST) Glucose 97 65 - 199 mg/dL 06/14/2024 12:[address] [facility] Comment:Glucose Concentratio n >=200 mg/dL plus symptoms is consistent with Diabetes Mellitus. Blood Urea Nitrogen 25(H) 10 - 20 mg/dL 06/14/2024 12:[address] [facility] Creatinine 1.14 0.80 - 1.50 [...] AM EST Shahnaz Scanlon MD CHEMISTRY ORDERABLES [facility] [place] [address] * Scan Doc: Implantable Devices (06/14/2024 12:00 AM EST) Narrative 06/14/2024 12:00 AM EST Ordered by an unspecified provider. Scanning Provider MEDIA MGR SCAN EXT O RDR/RSLT * POC, GLUCOSE (06/13/2024 11:12 PM EST) Glucometer, POC 104 65 - 199 mg/dL 06/13/2024 11:[address] [facility] Comment:Supplemental ranges: <140 mg/dL before meals <180 mg/dL all other times of the day. Blood CAPILLARY BLOOD / Unknown 06/13/2024 11:12 PM EST 06/13/2024 11:13 PM EST Haja Byrnes MD POINT OF CARE TEST O NIKA Performing Organization Address City/[facility]/ZIP Co de Phone Number [facility] [place] [address] * (ABNORMAL) POC, GLUCOSE (06/13/2024 8:03 PM EST) Glucometer, POC 206(H) 65 - 199 mg/dL 06/13/2024 8:[address] [facility] Comment:Supplemental ranges: <140 mg/dL before meals <180 mg/dL all other times of the day. Blood CAPILLARY BLOOD / Unknown 06/13/2024 8:03 PM EST 06/13/2024 8:03 PM EST Haja Byrnes MD POINT OF CARE TEST O NIKA [facility] [place] [address] * Heparin (unfractionated) Level (06/13/2024 4:11 PM EST) UF Heparin 0.76 IU/mL 06/13/2024 4:[address] [facility] Comment: Heparin (anti-Xa) levels should [...] MD HEMATOLOGY ORDERABLE S Performing Organization Address City/[facility]/ZIP Co de Phone Number [facility] [place] [address] * ABORH RECHECK (06/13/2024 4:11 PM EST) Pathologist [facility] [place] ABORH Recheck O POSITIVE 06/13/2024 4:[address] [facility] Blood VENOUS BLOOD SPECIMEN / Unknown Venipuncture / Unknown 06/13/2024 4:11 PM EST 06/13/2024 4:19 PM EST Haja Byrnes MD BLOOD BANK LAB ORDER [place] Performing Organization Address City/[facility] Co de Phone Number [facility] [place] [place] [address] * (ABNORMAL) POC, GLUCOSE (06/13/2024 4:09 PM EST) Glucometer, POC 216(H) 65 - 199 mg/dL 06/13/2024 4:[address] [facility] Comment:Supplemental ranges: <140 mg/dL before meals <180 mg/dL all other times of the day. Blood CAPILLARY BLOOD / Unknown 06/13/2024 4:09 PM EST 06/13/2024 4:10 PM EST Haja Byrnes MD POINT OF CARE TEST O RDERABLES [facility] [place] [address] * Type and screen ([facility]/CGP/RAFITA) (06/13/2024 11:53 AM EST) ABORH Type O POSITIVE 06/13/2024 1:[address] [facility] PATIENT HISTORY Not Found 06/13/2024 1:[address] [facility] Expires at [id number] on: 06/16/2024 06/13/2024 1:[address] [facility] ANTIBODY SCREEN AUTOMATED Negative 06/13/2024 1:[address] [facility] T&S only valid at [facility] 06/13/2024 1:[address] [facility] Blood VENOUS BLOOD SPECIMEN / Unknown Venipuncture / Unknown 06/13/2024 11:53 AM EST 06/13/2024 11:[address] [facility] - 06/13/2024 1:16 PM EST This Type and Screen result is only valid at the [facility] Haja Byrnes MD BLOOD BANK LAB ORDER [place]SEBIA Performing Organization Address [facility] Co de Phone Number [facility] [place] [place] [address] * POC, GLUCOSE (06/13/2024 11:50 AM EST) [facility] Glucometer, POC [phone] - 199 mg/dL 06/13/2024 11:[address] [facility] Comment:Supplemental ranges: <140 mg/dL before meals <180 mg/dL all other times of the day. Blood CAPILLARY BLOOD / Unknown 06/13/2024 11:50 AM EST 06/13/2024 11:51 AM EST Haja Byrnes MD POINT OF CARE TEST O RDERABLES Performing Organization Address City/[facility]/ZIP Co de Phone Number [facility] [place] [address] * XR Chest One View (06/13/2024 10:35 AM EST) WORKSTATION ID [id number] RAD Anatomical Region Laterality Modality Chest N/A [...] questions please contact the health client care specialist that requested your imaging first. ? Narrative [...] have questions please contactthe health client care specialist that requested your imaging first. Haja Byrnes MD IMG DX ORDERABLES * CARDIAC CATHETERIZATION (06/13/2024 9:02 AM EST) Anatomical Region Laterality Modality Other Narrative 06/15/2024 9:07 AM EST ?[facility] ? Cardiac Catheterization/Intervention Report ? Patient Name: George MehtaViry ? Procedure Date: 06/13/2024 ? A #: [id number] ? Primary Physician: Nuha Shen I ? Case #: [id number] ? File Name: [id number] ? Catheterization Order Number: [id number] ? [facility] ? Final Report [place], [place] ? Patient Name: ? George L. Tyson ? ID#: ?[id number] ? : ?1955 ? Procedure Date: ? [...] ?was designated as ASA Class IV. The [facility] clinical frailty scale is 5: ?Mildly [...] procedure was Urgent. The indication for ?the cytology laboratory manager visit is ACS greater than 24 hrs [...] angiography, vascular ?ultrasound and IABP insertion in cytology laboratory manager. ? Nuha Shen M.D. ? Electronically Signed by: Nuha Shen M.D. ? Report Finalized: 06/15/2024 ??08:59 ? Procedure Note Nuha Shen MD - 06/15/2024 [facility] Cardiac Catheterization/Intervention Report Patient Name: George Mehta Procedure Date: 06/13/2024 A #: [id number] Primary Physician: Nuha Shen I Case #: [id number] File Name: [id number] Catheterization Order Number: [id number] [facility] FinalReport [place], [place] Patient Name: George Mehta ID#:[id number] :1955 Procedure Date: June 13, 2024 Case [...] was designated as ASA Class IV. The [facility] clinical frailty scale is5: Mildly Frail. [...] diagnostic procedure was Urgent. The indicationfor the cytology laboratory manager visit is ACS greater than 24 hrs [...] site angiography,vascular ultrasound and IABP insertion in cytology laboratory manager. Nuha Shen M.D. Electronically Signed by: Nuha Shen M.D. Report Finalized: 06/15/2024 08:59 Nuha Rojo MD CARDIAC CATH ORDERA BLES * Potassium (06/13/2024 7:48 AM EST) Potassium 4.5 3.5 - 5.0 mMol/L 06/13/2024 8:[address] [facility] Blood VENOUS BLOOD SPECIMEN / Unknown Venipuncture / Unknown 06/13/2024 7:48 AM EST 06/13/2024 7:55 AM EST Shahnaz Scanlon MD CHEMISTRY ORDERABLES Performing Organization Address City/[facility]/ZIP Co de Phone Number [facility] [place] [address] * POC, GLUCOSE (06/13/2024 7:41 AM EST) Glucometer, POC 126 65 - 199 mg/dL 06/13/2024 7:[address] [facility] Comment:Supplemental ranges: <140 mg/dL before meals <180 mg/dL all other times of the day. Blood CAPILLARY BLOOD / Unknown 06/13/2024 7:41 AM EST 06/13/2024 7:41 AM EST Ethel Carrillo MD POINT OF CARE TEST O RDERABLES [facility] [place] [address] * POC, GLUCOSE (06/13/2024 3:25 AM EST) Glucometer, POC 99 65 - 199 mg/dL 06/13/2024 3:[address] [facility] Comment:Supplemental ranges: <140 mg/dL before meals <180 mg/dL all other times of the day. Blood CAPILLARY BLOOD / Unknown 06/13/2024 3:25 AM EST 06/13/2024 3:25 AM EST Ethel Carrillo MD POINT OF CARE TEST O RDERABLES Performing Organization Address City/[facility]/ZIP Co de Phone Number [facility] [place] [address] * Heparin (unfractionated) Level (06/13/2024 2:26 AM EST) UF Heparin 0.60 IU/mL 06/13/2024 3:[address] [facility] Comment: Heparin (anti-Xa) levels should [...] MD HEMATOLOGY ORDERABLE S Performing Organization Address City/[facility]/ZIP Co de Phone Number [facility] [place] [address] * (ABNORMAL) CBC (with Diff) (06/13/2024 2:26 AM EST) White Blood Cell 9.98(H) 4.00 - 9.50 x10(3)/mc L 06/13/2024 2:41 AM [facility] Red Blood Cell 5.11 [...] 6.10 x10(3)/mc L 06/13/2024 2:[address] [facility] Lymph % 35.3 % 06/13/2024 2:[address] [facility] Lymph Absolute 3.52(H) 0.90 - 3.20 x10(3)/mc L 06/13/2024 2:41 AM [facility] Monocyte % 10.1 % 06/13/2024 2:[address] [facility] Monocyte Absolute 1.01(H) 0.30 - 0.90 x10(3)/mc L 06/13/2024 2:[address] [facility] Eos % 4.4 % 06/13/2024 2:41 AM [facility] Eos Absolute 0.44(H) 0.00 - 0.40 x10(3)/mc L 06/13/2024 2:[address] [facility] Basophil % 0.9 % 06/13/2024 2:41 AM [facility] Baso Absolute 0.09 0.00 - 0.10 x10(3)/mc L 06/13/2024 2:[address] [facility] Immature Gran % 0.5 % 2:41 AM [facility] Immature Gran Absolute 0.05(H) 0.00 - 0.04 x10(3)/mc L 06/13/2024 2:[address] [facility] Blood VENOUS BLOOD SPECIMEN / Unknown Venipuncture / Unknown 06/13/2024 2:26 AM EST 06/13/2024 2:32 AM EST Shahnaz Scanlon MD HEMATOLOGY ORDERABLE S [facility] [place] [address] * Magnesium (06/13/2024 2:26 AM EST) Magnesium 0.78 0.69 - 1.07 mMol/L 06/13/2024 2:58 AM [facility] Blood VENOUS BLOOD SPECIMEN / Unknown Venipuncture / Unknown 06/13/2024 2:26 AM EST 06/13/2024 2:31 AM EST Shahnaz Scanlon MD CHEMISTRY ORDERABLES [facility] [place] [address] * (ABNORMAL) Basic Metabolic Panel (06/13/2024 2:26 AM EST) Glucose 121 65 - 199 mg/dL 06/13/2024 2:58 AM [facility] Comment:Glucose [...] Scanlon MD CHEMISTRY ORDERABLES Performing Organization Address [facility] Co de Phone Number [facility] [place] [address] * POC, GLUCOSE (06/12/2024 11:53 PM EST) Glucometer, POC 141 65 - 199 mg/dL 06/12/2024 11:[address] [facility] Comment:Supplemental ranges: <140 mg/dL before meals <180 mg/dL all other times of the day. Blood CAPILLARY BLOOD / Unknown 06/12/2024 11:53 PM EST 06/12/2024 11:54 PM EST Ethel Carrillo MD POINT OF CARE TEST O RDERABLES Performing Organization Address [facility] Co de Phone Number [facility] [place] [address] * POC, GLUCOSE (06/12/2024 7:32 PM EST) Glucometer, POC 158 65 - 199 mg/dL 06/12/2024 7:[address] [facility] Comment:Supplemental ranges: <140 mg/dL before meals <180 mg/dL all other times of the day. Blood CAPILLARY BLOOD / Unknown 06/12/2024 7:32 PM EST 06/12/2024 7:32 PM EST Ethel Carrillo MD POINT OF CARE TEST O NIKA Performing Organization Address [facility] Co de Phone Number [facility] [place] [address] * POC, GLUCOSE (06/12/2024 3:41 PM EST) Glucometer, POC 113 65 - 199 mg/dL 06/12/2024 3:[address] [facility] Comment:Supplemental ranges: <140 mg/dL before meals <180 mg/dL all other times of the day. Blood CAPILLARY BLOOD / Unknown 06/12/2024 3:41 PM EST 06/12/2024 3:41 PM EST Ethel Carrillo MD POINT OF CARE TEST Abimael MAHER Performing Organization Address [facility] Co de Phone Number [facility] [place] [address] * Potassium (06/12/2024 2:19 PM EST) Potassium 4.5 3.5 - 5.0 mMol/L 06/12/2024 2:[address] [facility] Blood VENOUS BLOOD SPECIMEN / Unknown Venipuncture / Unknown 06/12/2024 2:19 PM EST 06/12/2024 2:23 PM EST Shahnaz Scanlon MD CHEMISTRY ORDERABLES Performing Organization Address [facility] Co de Phone Number [facility] [place] [address] * (ABNORMAL) POC, GLUCOSE (06/12/2024 11:21 AM EST) Glucometer, POC 207(H) 65 - 199 mg/dL 06/12/2024 11:[address] [facility] Comment:Supplemental ranges: <140 mg/dL before meals <180 mg/dL all other times of the day. Blood CAPILLARY BLOOD / Unknown 06/12/2024 11:21 AM EST 06/12/2024 11:22 AM EST Ethel Carrillo MD POINT OF CARE TEST O NIKA Performing Organization Address City/[facility] Co de Phone Number [facility] [place] [address] * POC, GLUCOSE (06/12/2024 8:00 AM EST) Glucometer, POC 169 65 - 199 mg/dL 06/12/2024 8:[address] [facility] Comment:Supplemental ranges: <140 mg/dL before meals <180 mg/dL all other times of the day. Blood CAPILLARY BLOOD / Unknown 06/12/2024 8:00 AM EST 06/12/2024 8:01 AM EST Ethel Carrillo MD POINT OF CARE TEST O NIKA Performing Organization Address [facility] de Phone Number [facility] [place] [address] * POC, GLUCOSE (06/12/2024 4:25 AM EST) Glucometer, POC 132 65 - 199 mg/dL 06/12/2024 4:[address] [facility] Comment:Supplemental ranges: <140 mg/dL before meals <180 mg/dL all other times of the day. Blood CAPILLARY BLOOD / Unknown 06/12/2024 4:25 AM EST 06/12/2024 4:26 AM EST Ethel Carrillo MD POINT OF CARE TEST O NIKA Performing Organization Address City/[facility] Co de Phone Number [facility] [place] [address] * Heparin (unfractionated) Level (06/12/2024 3:03 AM EST) UF Heparin 0.55 IU/mL 06/12/2024 3:[address] [facility] Comment: Heparin (anti-Xa) levels should [...] MD HEMATOLOGY ORDERABLE S Performing Organization Address City/State/[facility] Co de Phone Number [facility] [place] [address] * (ABNORMAL) CBC (with Diff) (06/12/2024 3:03 AM EST) White Blood Cell 9.69(H) 4.00 - 9.50 x10(3)/mc L 06/12/2024 3:[address] [facility] Red Blood Cell 5.05 4.58 - 5.54 x10(6)/mc L 06/12/2024 3:[address] [facility] Hemoglobin 15.2 13.7 - 16.5 g/dL 06/12/2024 3:[address] [facility] Hematocrit 46.6 40.5 - 48.5 [...] MD HEMATOLOGY ORDERABLE S Performing Organization Address City/[facility]/ZIP Co de Phone Number [facility] [place] [address] * Magnesium (06/12/2024 3:03 AM EST) Magnesium 0.79 0.69 - 1.07 mMol/L 06/12/2024 4:01 AM [facility] Blood VENOUS BLOOD SPECIMEN / Unknown Venipuncture / Unknown 06/12/2024 3:03 AM EST 06/12/2024 3:30 AM EST Shahnaz Scanlon MD CHEMISTRY ORDERABLES [facility] [place] [address] * (ABNORMAL) Basic Metabolic Panel (06/12/2024 3:03 [...] AM EST Shahnaz Scanlon MD CHEMISTRY ORDERABLES [facility] [place] [address] * POC, GLUCOSE (06/11/2024 11:56 PM EST) Glucometer, POC 135 65 - 199 mg/dL 06/11/2024 11:[address] [facility] Comment:Supplemental ranges: <140 mg/dL before meals <180 mg/dL all other times of the day. Blood CAPILLARY BLOOD / Unknown 06/11/2024 11:56 PM EST 06/11/2024 11:56 PM EST Ethel Carrillo MD POINT OF CARE TEST O NIKA Performing Organization Address City/[facility]/ZIP Co de Phone Number [facility] [place] [address] * (ABNORMAL) POC, GLUCOSE (06/11/2024 8:25 PM EST) Glucometer, POC 210(H) 65 - 199 mg/dL 06/11/2024 8:[address] [facility] Comment:Supplemental ranges: <140 mg/dL before meals <180 mg/dL all other times of the day. Blood CAPILLARY BLOOD / Unknown 06/11/2024 8:25 PM EST 06/11/2024 8:26 PM EST Ethel Carrillo MD POINT OF CARE TEST O NIKA Performing Organization Address [facility]/ZIP Co de Phone Number [facility] [place] [address] * POC, GLUCOSE (06/11/2024 4:24 PM EST) Glucometer, POC 81 65 - 199 mg/dL 06/11/2024 4:[address] [facility] Comment:Supplemental ranges: <140 mg/dL before meals <180 mg/dL all other times of the day. Blood CAPILLARY BLOOD / Unknown 06/11/2024 4:24 PM EST 06/11/2024 4:25 PM EST Ethel Carrillo MD POINT OF CARE TEST O NIKA [facility] [place] [address] * (ABNORMAL) POC, GLUCOSE (06/11/2024 11:08 AM EST) Glucometer, POC 233(H) 65 - 199 mg/dL 06/11/2024 11:[address] [facility] Comment:Supplemental ranges: <140 mg/dL before meals <180 mg/dL all other times of the day. Blood CAPILLARY BLOOD / Unknown 06/11/2024 11:08 AM EST 06/11/2024 11:08 AM EST Ethel Carrillo MD POINT OF CARE TEST Abimael MAHER Performing Organization Address City/[facility]/ZIP Co de Phone Number [facility] [place] [address] * POC, GLUCOSE (06/11/2024 7:48 AM EST) Glucometer, POC 184 65 - 199 mg/dL 06/11/2024 7:[address] [facility] Comment:Supplemental ranges: <140 mg/dL before meals <180 mg/dL all other times of the day. Blood CAPILLARY BLOOD / Unknown 06/11/2024 7:48 AM EST 06/11/2024 7:49 AM EST Melida Valdes MD POINT OF CARE TEST Abimael MAEHR Performing Organization Address City/[facility]/ZIP Co de Phone Number [facility] [place] [address] * Heparin (unfractionated) Level (06/11/2024 5:31 AM EST) UF Heparin 0.55 IU/mL 06/11/2024 6:[address] [facility] Comment: Heparin (anti-Xa) levels should [...] MD HEMATOLOGY ORDERABLE S Performing Organization Address [facility] Co de Phone Number [facility] [place] [address] * POC, GLUCOSE (06/11/2024 3:57 AM EST) Glucometer, POC 132 65 - 199 mg/dL 06/11/2024 3:[address] [facility] Comment:Supplemental ranges: <140 mg/dL before meals <180 mg/dL all other times of the day. Blood CAPILLARY BLOOD / Unknown 06/11/2024 3:57 AM EST 06/11/2024 3:58 AM EST Melida Valdes MD POINT OF CARE TEST O RDERABLES Performing Organization Address [facility] Co de Phone Number [facility] [place] [address] * (ABNORMAL) CBC (with Diff) (06/11/2024 2:13 AM EST) White Blood Cell 9.91(H) 4.00 - 9.50 x10(3)/mc L 06/11/2024 2:[address] [facility] Red Blood Cell 5.13 4.58 - 5.54 x10(6)/mc L 06/11/2024 2:[address] [facility] Hemoglobin 15.3 13.7 - 16.5 g/dL 06/11/2024 2:26 AM [facility] Hematocrit 47.5 40.5 - 48.5 % 06/11/2024 2:26 AM [facility] Mean Cell Volume 92.6 [...] - 0.90 x10(3)/mc L 06/11/2024 2:26 AM [facility] [...] MD HEMATOLOGY ORDERABLE S Performing Organization Address City/State/[facility] Co de Phone Number [facility] [place] [address] * Magnesium (06/11/2024 2:13 AM EST) Magnesium 0.83 0.69 - 1.07 mMol/L 06/11/2024 2:51 AM [facility] Blood VENOUS BLOOD SPECIMEN / Unknown Venipuncture / Unknown 06/11/2024 2:13 AM EST 06/11/2024 2:19 AM EST Shahnaz Scanlon MD CHEMISTRY ORDERABLES [facility] [place] [address] * (ABNORMAL) Basic Metabolic Panel (06/11/2024 2:13 AM EST) Glucose 148 65 - 199 mg/dL 06/11/2024 2:[address] [facility] Comment:Glucose Concentratio n >=200 mg/dL plus symptoms is consistent with Diabetes Mellitus. Blood Urea Nitrogen 24(H) 10 - 20 mg/dL 06/11/2024 2:[address] [facility] Creatinine 1.06 0.80 - 1.50 mg/dL 06/11/2024 2:51 AM [facility] Sodium 134(L) 135 - 145 mMol/L 06/11/2024 2:[address] [facility] Potassium 4.1 3.5 - 5.0 mMol/L 06/11/2024 2:[address] [facility] Chloride 96(L) 98 - 107 mMol/L 06/11/2024 2:51 AM [facility] Carbon Dioxide 28 22 - 31 mMol/L 06/11/2024 2:51 AM [facility] Anion Gap 10 5 - 15 mMol/L 06/11/2024 2:[address] [facility] Calcium 9.4 8.5 - 10.5 mg/dL 06/11/2024 2:[address] [facility] Est Glomerular Filtration Rate - Male 77 mL/min/1. 73 m?? 06/11/2024 2:[address] [facility] Comment: This patient's estimated GFR [...] Scanlon MD CHEMISTRY ORDERABLES Performing Organization Address City/[facility]/ZIP Co de Phone Number [facility] [place] [address] * POC, GLUCOSE (06/11/2024 12:50 AM EST) Glucometer, POC 144 65 - 199 mg/dL 06/11/2024 12:[address] [facility] Comment:Supplemental ranges: <140 mg/dL before meals <180 mg/dL all other times of the day. Blood CAPILLARY BLOOD / Unknown 06/11/2024 12:50 AM EST 06/11/2024 12:51 AM EST Melida Valdes MD POINT OF CARE TEST O NIKA Performing Organization Address [facility] Co de Phone Number [facility] [place] [address] * (ABNORMAL) POC, GLUCOSE (06/10/2024 7:22 PM EST) Glucometer, POC 236(H) 65 - 199 mg/dL 06/10/2024 7:[address] [facility] Comment:Supplemental ranges: <140 mg/dL before meals <180 mg/dL all other times of the day. Blood CAPILLARY BLOOD / Unknown 06/10/2024 7:22 PM EST 06/10/2024 7:22 PM EST Melida Valdes MD POINT OF CARE TEST O RDERAPIETER Performing Organization Address City/[facility]/ZIP Co de Phone Number [facility] [place] [address] * (ABNORMAL) Blood Gas, Venous (06/10/2024 5:42 PM EST) [facility] pH, Venous 7.34 7.32 - 7.42 06/10/2024 5:50 PM [facility] PCO2, Venous 52 38 - 58 mmHg 06/10/2024 5:50 PM [facility] PO2, Venous 24 16 [...] - 2.2 mmol/L 06/10/2024 5:[address] [facility] Blood Gas Source Venous 06/10/20 5:[address] [facility] Blood VENOUS BLOOD SPECIMEN / Unknown Blood Gas Venous / Unknown 06/10/2024 5:42 PM EST 06/10/2024 5:47 PM EST Melida Valdes MD CHEMISTRY ORDERABLES Performing Organization Address [facility] Co de Phone Number [facility] [place] [address] * POC, GLUCOSE (06/10/2024 5:35 PM EST) Glucometer, POC 123 65 - 199 mg/dL 06/10/2024 5:[address] [facility] Comment:Supplemental ranges: <140 mg/dL before meals <180 mg/dL all other times of the day. Blood CAPILLARY BLOOD / Unknown 06/10/2024 5:35 PM EST 06/10/2024 5:35 PM EST Melida Valdes MD POINT OF CARE TEST O RDERABLES Performing Organization Address [facility] Co de Phone Number [facility] [place] [address] * (ABNORMAL) POC, GLUCOSE (06/10/2024 11:25 AM EST) Glucometer, POC 216(H) 65 - 199 mg/dL 06/10/2024 11:[address] [facility] Comment:Supplemental ranges: <140 mg/dL before meals <180 mg/dL all other times of the day. Blood CAPILLARY BLOOD / Unknown 06/10/2024 11:25 AM EST 06/10/2024 11:25 AM EST Melida Valdes MD POINT OF CARE TEST O RDERABLES Performing Organization Address [facility] Co de Phone Number [facility] [place] [address] * (ABNORMAL) POC, GLUCOSE (06/10/2024 7:46 AM EST) Glucometer, POC 206(H) 65 - 199 mg/dL 06/10/2024 7:[address] [facility] Comment:Supplemental ranges: <140 mg/dL before meals <180 mg/dL all other times of the day. Blood CAPILLARY BLOOD / Unknown 06/10/2024 7:46 AM EST 06/10/2024 7:46 AM EST Melida Valdes MD POINT OF CARE TEST O RDERABLES Performing Organization Address [facility] Co de Phone Number [facility] [place] [address] * POC, GLUCOSE (06/10/2024 4:23 AM EST) Glucometer, POC 154 65 - 199 mg/dL 06/10/2024 4:[address] [facility] Comment:Supplemental ranges: <140 mg/dL before meals <180 mg/dL all other times of the day. Blood CAPILLARY BLOOD / Unknown 06/10/2024 4:23 AM EST 06/10/2024 4:24 AM EST Melida Valdes MD POINT OF CARE TEST O RDERAPIETER Performing Organization Address [facility] Co de Phone Number [facility] [place] [address] * (ABNORMAL) CBC (with Diff) (06/10/2024 1:55 AM EST) White Blood Cell 9.00 4.00 - 9.50 x10(3)/mc L 06/10/2024 2:[address] [facility] Red Blood Cell 5.03 4.58 - 5.54 x10(6)/mc L 06/10/2024 2:14 AM [facility] Hemoglobin 14.9 13.7 - 16.5 g/dL 06/10/2024 2:14 AM [facility] Hematocrit 46.4 40.5 - [...] - 0.90 x10(3)/mc L 06/10/2024 2:14 AM [facility] Eos % 3.6 % 06/10/2024 2:14 AM [facility] Eos Absolute 0.32 0.00 - 0.40 x10(3)/mc L 06/10/2024 2:14 AM [facility] Basophil % 1.0 % 06/10/2024 2:14 AM [facility] Baso Absolute 0.09 0.00 - 0.10 x10(3)/mc L 06/10/2024 2:14 AM [facility] [...] MD HEMATOLOGY ORDERABLE S Performing Organization Address City/[facility] Co de Phone Number [facility] [place] [address] * Magnesium (06/10/2024 1:55 AM EST) Magnesium 0.83 0.69 - 1.07 mMol/L 06/10/2024 2:37 AM [facility] Blood VENOUS BLOOD SPECIMEN / Unknown Venipuncture / Unknown 06/10/2024 1:55 AM EST 06/10/2024 2:05 AM EST Shahnaz Scanlon MD CHEMISTRY ORDERABLES [facility] [place] [address] * (ABNORMAL) Basic Metabolic Panel (06/10/2024 1:55 [...] Scanlon MD CHEMISTRY ORDERABLES Performing Organization Address [facility] Co de Phone Number [facility] [place] [address] * Heparin (unfractionated) Level (06/10/2024 1:54 AM EST) UF Heparin 0.56 IU/mL 06/10/2024 2:[address] [facility] Comment: Heparin (anti-Xa) levels should [...] MD HEMATOLOGY ORDERABLE S Performing Organization Address City/[facility]/ZIP Co de Phone Number [facility] [place] [address] * POC, GLUCOSE (06/10/2024 12:05 AM EST) Glucometer, POC 125 65 - 199 mg/dL 06/10/2024 12:[address] [facility] Comment:Supplemental ranges: <140 mg/dL before meals <180 mg/dL all other times of the day. Blood CAPILLARY BLOOD / Unknown 06/10/2024 12:05 AM EST 06/10/2024 12:05 AM EST Melida Valdes MD POINT OF CARE TEST O NIKA [facility] [place] [address] * POC, GLUCOSE (06/09/2024 8:36 PM EST) Glucometer, POC 197 65 - 199 mg/dL 06/09/2024 8:[address] [facility] Comment:Supplemental ranges: <140 mg/dL before meals <180 mg/dL all other times of the day. Blood CAPILLARY BLOOD / Unknown 06/09/2024 8:36 PM EST 06/09/2024 8:36 PM EST Melida Valdes MD POINT OF CARE TEST O NIKA Performing Organization Address City/[facility]/ZIP Co de Phone Number [facility] [place] [address] * POC, GLUCOSE (06/09/2024 5:27 PM EST) Glucometer, POC 174 65 - 199 mg/dL 06/09/2024 5:[address] [facility] Comment:Supplemental ranges: <140 mg/dL before meals <180 mg/dL all other times of the day. Blood CAPILLARY BLOOD / Unknown 06/09/2024 5:27 PM EST 06/09/2024 5:28 PM EST Melida Valdes MD POINT OF CARE TEST O NIKA [facility] [place] [address] * (ABNORMAL) POC, GLUCOSE (06/09/2024 11:52 AM EST) Glucometer, POC 211(H) 65 - 199 mg/dL 06/09/2024 11:[address] [facility] Comment:Supplemental ranges: <140 mg/dL before meals <180 mg/dL all other times of the day. Blood CAPILLARY BLOOD / Unknown 06/09/2024 11:52 AM EST 06/09/2024 11:52 AM EST Melida Valdes MD POINT OF CARE TEST O RDERAPIETER Performing Organization Address City/[facility]/ZIP Co de Phone Number [facility] [place] [address] * Potassium (06/09/2024 8:25 AM EST) Potassium 4.6 3.5 - 5.0 mMol/L 06/09/2024 10:[address] [facility] Blood VENOUS BLOOD SPECIMEN / Unknown Venipuncture / Unknown 06/09/2024 8:25 AM EST 06/09/2024 8:42 AM EST Shahnaz Scanlon MD CHEMISTRY ORDERABLES Performing Organization Address [facility] Co de Phone Number [facility] [place] [address] * (ABNORMAL) POC, GLUCOSE (06/09/2024 8:10 AM EST) Glucometer, POC 209(H) 65 - 199 mg/dL 06/09/2024 8:[address] [facility] Comment:Supplemental ranges: <140 mg/dL before meals <180 mg/dL all other times of the day. Blood CAPILLARY BLOOD / Unknown 06/09/2024 8:10 AM EST 06/09/2024 8:11 AM EST Melida Valdes MD POINT OF CARE TEST O RDERABLES Performing Organization Address City/[facility]/ZIP Co de Phone Number [facility] [place] [address] * POC, GLUCOSE (06/09/2024 4:40 AM EST) Glucometer, POC 131 65 - 199 mg/dL 06/09/2024 4:[address] [facility] Comment:Supplemental ranges: <140 mg/dL before meals <180 mg/dL all other times of the day. Blood CAPILLARY BLOOD / Unknown 06/09/2024 4:40 AM EST 06/09/2024 4:41 AM EST Melida Valdes MD POINT OF CARE TEST O RDERABLES Performing Organization Address [facility]/ZIP Co de Phone Number [facility] [place] [address] * Heparin (unfractionated) Level (06/09/2024 2:12 AM EST) UF Heparin 0.55 IU/mL 06/09/2024 2:[address] [facility] Comment: Heparin (anti-Xa) levels should [...] EST Shahnaz Scanlon MD HEMATOLOGY ORDERABLE S [facility] [place] [address] * (ABNORMAL) CBC (with Diff) (06/09/2024 2:12 [...] EST Shahnaz Scanlon MD HEMATOLOGY ORDERABLE S [facility] [place] [address] * Magnesium (06/09/2024 2:12 AM EST) Magnesium 0.83 0.69 - 1.07 mMol/L 06/09/2024 2:[address] [facility] Blood VENOUS BLOOD SPECIMEN / Unknown Venipuncture / Unknown 06/09/2024 2:12 AM EST 06/09/2024 2:22 AM EST Shahnaz Scanlon MD CHEMISTRY ORDERABLES [facility] [place] [address] * (ABNORMAL) Basic Metabolic Panel (06/09/2024 2:12 AM EST) Glucose 147 65 - 199 mg/dL 06/09/2024 2:52 AM [facility] Comment:Glucose [...] 5 - 15 mMol/L 06/09/2024 2:52 AM [facility] Calcium [...] Scanlon MD CHEMISTRY ORDERABLES Performing Organization Address [facility] Co de Phone Number [facility] [place] [address] * POC, GLUCOSE (06/09/2024 12:34 AM EST) Glucometer, POC 186 65 - 199 mg/dL 06/09/2024 12:[address] [facility] Comment:Supplemental ranges: <140 mg/dL before meals <180 mg/dL all other times of the day. Blood CAPILLARY BLOOD / Unknown 06/09/2024 12:34 AM EST 06/09/2024 12:34 AM EST Melida Valdes MD POINT OF CARE TEST O RDERABLES Performing Organization Address City/[facility]/ZIP Co de Phone Number [facility] [place] [address] * POC, GLUCOSE (06/08/2024 8:27 PM EST) Glucometer, POC 176 65 - 199 mg/dL 06/08/2024 8:[address] [facility] Comment:Supplemental ranges: <140 mg/dL before meals <180 mg/dL all other times of the day. Blood CAPILLARY BLOOD / Unknown 06/08/2024 8:27 PM EST 06/08/2024 8:28 PM EST Melida Valdes MD POINT OF CARE TEST O NIKA Performing Organization Address [facility] de Phone Number [facility] [place] [address] * POC, GLUCOSE (06/08/2024 4:16 PM EST) Glucometer, POC 159 65 - 199 mg/dL 06/08/2024 4:[address] [facility] Comment:Supplemental ranges: <140 mg/dL before meals <180 mg/dL all other times of the day. Blood CAPILLARY BLOOD / Unknown 06/08/2024 4:16 PM EST 06/08/2024 4:16 PM EST Melida Valdes MD POINT OF CARE TEST O NIKA Performing Organization Address [facility] Phone Number [facility] [place] [address] * (ABNORMAL) POC, GLUCOSE (06/08/2024 12:35 PM EST) Glucometer, POC 226(H) 65 - 199 mg/dL 06/08/2024 12:[address] [facility] Comment:Supplemental ranges: <140 mg/dL before meals <180 mg/dL all other times of the day. Blood CAPILLARY BLOOD / Unknown 06/08/2024 12:35 PM EST 06/08/2024 12:35 PM EST Melida Valdes MD POINT OF CARE TEST O NIKA Performing Organization Address [facility] Co de Phone Number [facility] [place] [address] * POC, GLUCOSE (06/08/2024 8:10 AM EST) Glucometer, POC 190 65 - 199 mg/dL 06/08/2024 8:[address] [facility] Comment:Supplemental ranges: <140 mg/dL before meals <180 mg/dL all other times of the day. Blood CAPILLARY BLOOD / Unknown 06/08/2024 8:10 AM EST 06/08/2024 8:14 AM EST Melida Valdes MD POINT OF CARE TEST O NIKA Performing Organization Address [facility] de Phone Number [facility] [place] [address] * POC, GLUCOSE (06/08/2024 4:09 AM EST) Glucometer, POC 151 65 - 199 mg/dL 06/08/2024 4:[address] [facility] Comment:Supplemental ranges: <140 mg/dL before meals <180 mg/dL all other times of the day. Blood CAPILLARY BLOOD / Unknown 06/08/2024 4:09 AM EST 06/08/2024 4:10 AM EST Melida Valdes MD POINT OF CARE TEST O NIKA Performing Organization Address [facility] de Phone Number [facility] [place] [address] * Heparin (unfractionated) Level (06/08/2024 3:21 AM EST) UF Heparin 0.46 IU/mL 06/08/2024 3:[address] [facility] Comment: Heparin (anti-Xa) levels should [...] EST Shahnaz Scanlon MD HEMATOLOGY ORDERABLE S [facility] [place] [address] * (ABNORMAL) CBC (with Diff) (06/08/2024 3:21 [...] 0.04 x10(3)/mc L 06/08/2024 3:[address] [facility] Blood VENOUS BLOOD SPECIMEN / Unknown Venipuncture / Unknown 06/08/2024 3:21 AM EST 06/08/2024 3:27 AM EST Shahnaz Scanlon MD HEMATOLOGY ORDERABLE S Performing Organization Address City/[facility]/ZIP Co de Phone Number [facility] [place] [address] * Magnesium (06/08/2024 3:21 AM EST) Magnesium 0.84 0.69 - 1.07 mMol/L 06/08/2024 3:59 AM [facility] Blood VENOUS BLOOD SPECIMEN / Unknown Venipuncture / Unknown 06/08/2024 3:21 AM EST 06/08/2024 3:27 AM EST Shahnaz Scanlon MD CHEMISTRY ORDERABLES Performing Organization Address City/[facility]/ZIP Co de Phone Number [facility] [place] [address] * (ABNORMAL) Basic Metabolic Panel (06/08/2024 3:21 [...] - 31 mMol/L 06/08/2024 3:[address] [facility] Anion Gap 12 5 - 15 mMol/L 06/08/2024 3:59 AM [facility] Calcium 9.4 8.5 - 10.5 mg/dL 06/08/2024 3:[address] [facility] Est Glomerular Filtration Rate - Male 74 mL/min/1. 73 m?? 06/08/2024 3:59 AM [facility] Comment: [...] AM EST Shahnaz Scanlon MD CHEMISTRY ORDERABLES [facility] [place] [address] * POC, GLUCOSE (06/07/2024 11:57 PM EST) [facility] Signature Glucometer, POC 188 65 - 199 mg/dL 06/07/2024 11:[address] [facility] Comment:Supplemental ranges: <140 mg/dL before meals <180 mg/dL all other times of the day. Blood CAPILLARY BLOOD / Unknown 06/07/2024 11:57 PM EST 06/07/2024 11:58 PM EST Melida Valdes MD POINT OF CARE TEST O RDERABLES [facility] [place] [address] * POC, GLUCOSE (06/07/2024 8:05 PM EST) Glucometer, POC 118 65 - 199 mg/dL 06/07/2024 8:[address] [facility] Comment:Supplemental ranges: <140 mg/dL before meals <180 mg/dL all other times of the day. Blood CAPILLARY BLOOD / Unknown 06/07/2024 8:05 PM EST 06/07/2024 8:06 PM EST Melida Valdes MD POINT OF CARE TEST O RDBECKIE Performing Organization Address [facility] Co de Phone Number [facility] [place] [address] * Potassium (06/07/2024 5:22 PM EST) Potassium 4.6 3.5 - 5.0 mMol/L 06/07/2024 5:[address] [facility] Blood VENOUS BLOOD SPECIMEN / Unknown Venipuncture / Unknown 06/07/2024 5:22 PM EST 06/07/2024 5:26 PM EST Shahnaz Scanlon MD CHEMISTRY ORDERABLES Performing Organization Address City/[facility] Co de Phone Number [facility] [place] [address] * POC, GLUCOSE (06/07/2024 4:31 PM EST) Glucometer, POC 174 65 - 199 mg/dL 06/07/2024 4:[address] [facility] Comment:Supplemental ranges: <140 mg/dL before meals <180 mg/dL all other times of the day. Blood CAPILLARY BLOOD / Unknown 06/07/2024 4:31 PM EST 06/07/2024 4:34 PM EST Melida Valdes MD POINT OF CARE TEST O RDERABLES [facility] [place] [address] * MRI Cardiac Morphology Function wwo Contrast (06/07/2024 1:10 PM EST) WORKSTATION ID [id number] [facility] [place] Anatomical Region Laterality Modality Magnetic Resonan ce [...] - Mildly dilated left ventricle size with [id number] decreased LV systolic function. ??LV ejection fraction [...] questions please contact the health client care specialist that requested your imaging first. ? Narrative [...] VENTRICLE: Mildly dilated left ventricle size with [id number] decreased LV systolic function. ??LV ejection fraction [...] VENTRICLE: Mildly dilated left ventricle size with [id number] decreasedLV systolic function. LV ejection fraction is [...] - Mildly dilated left ventricle size with [id number] decreasedLV systolic function. LV ejection fraction is [...] have questions please contactthe health client care specialist that requested your imaging first. Delroy Fofana MD [facility] MRI ORDERABLES * (ABNORMAL) POC, GLUCOSE (06/07/2024 11:05 AM EST) [facility] Signature Glucometer, POC 221(H) 65 - 199 mg/dL 06/07/2024 11:[address] [facility] Comment:Supplemental ranges: <140 mg/dL before meals <180 mg/dL all other times of the day. Blood CAPILLARY BLOOD / Unknown 06/07/2024 11:05 AM EST 06/07/2024 11:06 AM EST Melida Valdes MD POINT OF CARE TEST O RDERAPIETER Performing Organization Address City/[facility] Co de Phone Number [facility] [place] [address] * (ABNORMAL) POC, GLUCOSE (06/07/2024 11:03 AM EST) Glucometer, POC 250(H) 65 - 199 mg/dL 06/07/2024 11:[address] [facility] Comment:Supplemental ranges: <140 mg/dL before meals <180 mg/dL all other times of the day. Blood CAPILLARY BLOOD / Unknown 06/07/2024 11:03 AM EST 06/07/2024 11:04 AM EST Melida Valdes MD POINT OF CARE TEST O RALPHERAPIETER Performing Organization Address [facility] Co de Phone Number [facility] [place] [address] * Potassium (06/07/2024 9:44 AM EST) Potassium 4.7 3.5 - 5.0 mMol/L 06/07/2024 10:[address] [facility] Blood VENOUS BLOOD SPECIMEN / Unknown Venipuncture / Unknown 06/07/2024 9:44 AM EST 06/07/2024 9:57 AM EST Shahnaz Scanlon MD CHEMISTRY ORDERABLES Performing Organization Address City/[facility]/ZIP Co de Phone Number [facility] [place] [address] * POC, GLUCOSE (06/07/2024 7:45 AM EST) Glucometer, POC 175 65 - 199 mg/dL 06/07/2024 7:[address] [facility] Comment:Supplemental ranges: <140 mg/dL before meals <180 mg/dL all other times of the day. Blood CAPILLARY BLOOD / Unknown 06/07/2024 7:45 AM EST 06/07/2024 7:46 AM EST Melida Valdes MD POINT OF CARE TEST O RDERABLES [facility] [place] [address] * XR Chest PA & Lateral (Generic) (06/07/2024 7:03 AM EST) WORKSTATION ID [id number] RAD Anatomical Region Laterality Modality Chest N/A [...] questions please contact the health client care specialist that requested your imaging first. ? Narrative [...] have questions please contactthe health client care specialist that requested your imaging first. Shahnaz Scanlon MD IMG DX ORDERABLES * POC, GLUCOSE (06/07/2024 4:25 AM EST) [facility] Glucometer, POC 127 65 - 199 mg/dL 06/07/2024 4:[address] [facility] Comment:Supplemental ranges: <140 mg/dL before meals <180 mg/dL all other times of the day. Blood CAPILLARY BLOOD / Unknown 06/07/2024 4:25 AM EST 06/07/2024 4:26 AM EST Melida Valdes MD POINT OF CARE TEST O RDERABLES [facility] [place] [address] * Heparin (unfractionated) Level (06/07/2024 2:41 AM EST) UF Heparin 0.45 IU/mL 06/07/2024 3:[address] [facility] Comment: Heparin (anti-Xa) levels should [...] MD HEMATOLOGY ORDERABLE S Performing Organization Address City/State/[facility] Co de Phone Number [facility] [place] [address] * (ABNORMAL) CBC (with Diff) (06/07/2024 2:41 AM EST) White Blood Cell 10.06(H) 4.00 - 9.50 x10(3)/mc L 06/07/2024 2:[address] [facility] Red Blood Cell 5.02 4.58 - 5.54 x10(6)/mc L 06/07/2024 2:[address] [facility] Hemoglobin 14.8 13.7 - 16.5 g/dL 06/07/2024 2:[address] [facility] Hematocrit 46.2 40.5 - 48.5 % 06/07/2024 2:58 AM [facility] Mean Cell Volume 92.0 82.9 - 93.1 fL 06/07/2024 2:[address] [facility] Mean Cell Hemoglobin 29.5 27.5 [...] 0.40 x10(3)/mc L 06/07/2024 2:[address] [facility] Basophil % 0.8 % 06/07/2024 2:[address] [facility] Baso Absolute 0.08 0.00 - 0.10 x10(3)/mc L 06/07/2024 2:[address] [facility] Immature Gran % 0.6 % 2:[address] [facility] Immature Gran Absolute 0.06(H) 0.00 - 0.04 x10(3)/mc L 06/07/2024 2:[address] [facility] Blood VENOUS BLOOD SPECIMEN / Unknown Venipuncture / Unknown 06/07/2024 2:41 AM EST 06/07/2024 2:52 AM EST Shahnaz Scanlon MD HEMATOLOGY ORDERABLE S Performing Organization Address City/[facility]/ZIP Co de Phone Number [facility] [place] [address] * Magnesium (06/07/2024 2:41 AM EST) Magnesium 0.92 0.69 - 1.07 mMol/L 06/07/2024 3:25 AM [facility] Blood VENOUS BLOOD SPECIMEN / Unknown Venipuncture / Unknown 06/07/2024 2:41 AM EST 06/07/2024 2:51 AM EST Shahnaz Scanlon MD CHEMISTRY ORDERABLES [facility] [place] [address] * (ABNORMAL) Basic Metabolic Panel (06/07/2024 2:41 AM EST) Glucose 140 65 - 199 mg/dL 06/07/2024 3:25 AM [facility] Comment:Glucose Concentratio n >=200 mg/dL plus symptoms is consistent with Diabetes Mellitus. Blood Urea Nitrogen 26(H) 10 - 20 mg/dL 06/07/2024 3:25 AM [facility] Creatinine 1.06 0.80 - 1.50 mg/dL 06/07/2024 3:[address] [facility] Sodium 136 135 - 145 [...] AM EST Shahnaz Scanlon MD CHEMISTRY ORDERABLES [facility] [place] [address] * POC, GLUCOSE (06/07/2024 12:08 AM EST) Glucometer, POC 182 65 - 199 mg/dL 06/07/2024 12:[address] [facility] Comment:Supplemental ranges: <140 mg/dL before meals <180 mg/dL all other times of the day. Blood CAPILLARY BLOOD / Unknown 06/07/2024 12:08 AM EST 06/07/2024 12:09 AM EST Melida Valdes MD POINT OF CARE TEST O NIKA [facility] [place] [address] * POC, GLUCOSE (06/06/2024 8:18 PM EST) Glucometer, POC 143 65 - 199 mg/dL 06/06/2024 8:[address] [facility] Comment:Supplemental ranges: <140 mg/dL before meals <180 mg/dL all other times of the day. Blood CAPILLARY BLOOD / Unknown 06/06/2024 8:18 PM EST 06/06/2024 8:19 PM EST Melida Valdes MD POINT OF CARE TEST O NIKA Performing Organization Address City/[facility]/ZIP Co de Phone Number [facility] [place] [address] * POC, GLUCOSE (06/06/2024 3:39 PM EST) Glucometer, POC 147 65 - 199 mg/dL 06/06/2024 3:[address] [facility] Comment:Supplemental ranges: <140 mg/dL before meals <180 mg/dL all other times of the day. Blood CAPILLARY BLOOD / Unknown 06/06/2024 3:39 PM EST 06/06/2024 3:40 PM EST Melida Valdes MD POINT OF CARE TEST O NIKA [facility] [place] [address] * Potassium (06/06/2024 2:37 PM EST) Potassium 4.3 3.5 - 5.0 mMol/L 06/06/2024 3:[address] [facility] Blood VENOUS BLOOD SPECIMEN / Unknown Venipuncture / Unknown 06/06/2024 2:37 PM EST 06/06/2024 2:42 PM EST Shahnaz Scanlon MD CHEMISTRY ORDERABLES Performing Organization Address [facility]/ZIP Co de Phone Number [facility] [place] [address] * (ABNORMAL) POC, GLUCOSE (06/06/2024 1:39 PM EST) Glucometer, POC 317(H) 65 - 199 mg/dL 06/06/2024 1:[address] [facility] Comment:Supplemental ranges: <140 mg/dL before meals <180 mg/dL all other times of the day. Blood CAPILLARY BLOOD / Unknown 06/06/2024 1:39 PM EST 06/06/2024 1:41 PM EST Melida Valdes MD POINT OF CARE TEST O NIKA Performing Organization Address [facility]/ZIP Co de Phone Number [facility] [place] [address] * (ABNORMAL) POC, GLUCOSE (06/06/2024 11:34 AM EST) Glucometer, POC 264(H) 65 - 199 mg/dL 06/06/2024 11:[address] [facility] Comment:Supplemental ranges: <140 mg/dL before meals <180 mg/dL all other times of the day. Blood CAPILLARY BLOOD / Unknown 06/06/2024 11:34 AM EST 06/06/2024 11:35 AM EST Melida Valdes MD POINT OF CARE TEST O RDERABLES Performing Organization Address City/[facility]/ZIP Co de Phone Number [facility] [place] [address] * Potassium (06/06/2024 10:17 AM EST) Potassium 4.3 3.5 - 5.0 mMol/L 06/06/2024 10:[address] [facility] Blood VENOUS BLOOD SPECIMEN / Unknown Venipuncture / Unknown 06/06/2024 10:17 AM EST 06/06/2024 10:22 AM EST Shahnaz Scanlon MD CHEMISTRY ORDERABLES Performing Organization Address [facility] Co de Phone Number [facility] [place] [address] * POC, GLUCOSE (06/06/2024 7:57 AM EST) Glucometer, POC 195 65 - 199 mg/dL 06/06/2024 8:[address] [facility] Comment:Supplemental ranges: <140 mg/dL before meals <180 mg/dL all other times of the day. Blood CAPILLARY BLOOD / Unknown 06/06/2024 7:57 AM EST 06/06/2024 8:03 AM EST Melida Valdes MD POINT OF CARE TEST O RDERABLES Performing Organization Address [facility]/ZIP Co de Phone Number [facility] [place] [address] * POC, GLUCOSE (06/06/2024 6:53 AM EST) Glucometer, POC 187 65 - 199 mg/dL 06/06/2024 6:[address] [facility] Comment:Supplemental ranges: <140 mg/dL before meals <180 mg/dL all other times of the day. Blood CAPILLARY BLOOD / Unknown 06/06/2024 6:53 AM EST 06/06/2024 6:54 AM EST Melida Valdes MD POINT OF CARE TEST O RDERABLES Performing Organization Address City/[facility]/ZIP Co de Phone Number [facility] [place] [address] * (ABNORMAL) Hemoglobin A1c (06/06/2024 3:33 AM EST) Hemoglobin A1c 7.1(H) 4.3 - 5.6 % 06/06/2024 1:[address] [facility] Comment: Per ADA guidelines, without [...] red blood cell turnover may not be agricultural sales representative of glycemic control. Reference Interval: 4.3 - 5.6% 5.7 - 6.4%: Consistent with prediabetes >=6.5%: Consistent with diagnosis of diabetes mellitus Estimated Average Glucose 157 mg/dL 06/06/2024 1:[address] [facility] Blood VENOUS BLOOD SPECIMEN / Unknown Venipuncture / Unknown 06/06/2024 3:33 AM EST 06/06/2024 3:48 AM EST Alejandra Baumann APRN CHEMISTRY ORDERAB LES Performing Organization Address City/[facility]/ZIP Co de Phone Number [facility] [place] [address] * Heparin (unfractionated) Level (06/06/2024 3:33 AM EST) UF Heparin 0.36 IU/mL 06/06/2024 3:[address] [facility] Comment: Heparin (anti-Xa) levels should [...] EST Shahnaz Scanlon MD HEMATOLOGY ORDERABLE S [facility] [place] [address] * (ABNORMAL) CBC (with Diff) (06/06/2024 3:33 AM EST) White Blood Cell 9.81(H) 4.00 - 9.50 x10(3)/mc L 06/06/2024 3:[address] [facility] Red Blood Cell 4.91 4.58 - 5.54 x10(6)/mc L 06/06/2024 3:[address] [facility] Hemoglobin 14.6 13.7 - 16.5 g/dL 06/06/2024 3:[address] [facility] Hematocrit 45.4 40.5 - 48.5 % 06/06/2024 3:[address] [facility] Mean Cell Volume 92.5 82.9 - 93.1 fL 06/06/2024 3:54 AM [facility] Mean Cell Hemoglobin 29.7 27.5 - 32.1 pg 06/06/2024 3:54 AM [facility] Mean Cell Hemoglobin Concentration 32.2 32.0 - 35.7 g/dL 06/06/2024 3:[address] [facility] Platelet 199 145 - 357 [...] 0.10 x10(3)/mc L 06/06/2024 3:[address] [facility] Immature Gran % 0.6 % 3:54 AM [facility] Immature Gran Absolute 0.06(H) 0.00 - 0.04 x10(3)/mc L 06/06/2024 3:54 AM [facility] Blood VENOUS BLOOD SPECIMEN / Unknown Venipuncture / Unknown 06/06/2024 3:33 AM EST 06/06/2024 3:48 AM EST Shahnaz Scanlon MD HEMATOLOGY ORDERABLE S Performing Organization Address City/[facility]/ZIP Co de Phone Number [facility] [place] [address] * Magnesium (06/06/2024 3:33 AM EST) Magnesium 0.92 0.69 - 1.07 mMol/L 06/06/2024 4:17 AM [facility] Blood VENOUS BLOOD SPECIMEN / Unknown Venipuncture / Unknown 06/06/2024 3:33 AM EST 06/06/2024 3:47 AM EST Shahnaz Scanlon MD CHEMISTRY ORDERABLES Performing Organization Address City/[facility]/ZIP Co de Phone Number [facility] [place] [address] * (ABNORMAL) Basic Metabolic Panel (06/06/2024 3:33 [...] - 145 mMol/L 06/06/2024 4:[address] [facility] Potassium 4.0 3.5 - 5.0 mMol/L 06/06/2024 4:17 AM [facility] Chloride 97(L) 98 - 107 mMol/L 06/06/2024 4:17 AM [facility] Carbon Dioxide 26 22 - 31 mMol/L 06/06/2024 4:17 AM [facility] Anion Gap 13 5 - 15 mMol/L 06/06/2024 4:17 AM [facility] Calcium 9.1 8.5 - 10.5 mg/dL 06/06/2024 4:17 AM [facility] Est Glomerular Filtration Rate - Male 72 mL/min/1. 73 m?? 06/06/2024 4:[address] [facility] Comment: This patient's estimated GFR [...] AM EST Shahnaz Scanlon MD CHEMISTRY ORDERABLES [facility] [place] [address] * (ABNORMAL) POC, GLUCOSE (06/05/2024 10:31 PM EDT) Glucometer, POC 238(H) 65 - 199 mg/dL 06/05/2024 10:[address] [facility] Comment:Supplemental ranges: <140 mg/dL before meals <180 mg/dL all other times of the day. Blood CAPILLARY BLOOD / Unknown 06/05/2024 10:31 PM EDT 06/05/2024 10:31 PM EDT Melida Valdes MD POINT OF CARE TEST O RDERAPIETER Performing Organization Address City/[facility] Co de Phone Number [facility] [place] [address] * (ABNORMAL) POC, GLUCOSE (06/05/2024 4:22 PM EDT) Glucometer, POC 205(H) 65 - 199 mg/dL 06/05/2024 4:[address] [facility] Comment:Supplemental ranges: <140 mg/dL before meals <180 mg/dL all other times of the day. Blood CAPILLARY BLOOD / Unknown 06/05/2024 4:22 PM EDT 06/05/2024 4:23 PM EDT Melida Valdes MD POINT OF CARE TEST O NIKA Performing Organization Address [facility] Co de Phone Number [facility] [place] [address] * (ABNORMAL) POC, GLUCOSE (06/05/2024 11:34 AM EDT) Glucometer, POC 211(H) 65 - 199 mg/dL 06/05/2024 11:[address] [facility] Comment:Supplemental ranges: <140 mg/dL before meals <180 mg/dL all other times of the day. Blood CAPILLARY BLOOD / Unknown 06/05/2024 11:34 AM EDT 06/05/2024 11:34 AM EDT Melida Valdes MD POINT OF CARE TEST O NIKA Performing Organization Address City/[facility] Co de Phone Number [facility] [place] [address] * Potassium (06/05/2024 9:04 AM EDT) [facility] Potassium 4.3 3.5 - 5.0 mMol/L 06/05/2024 9:[address] [facility] Blood VENOUS BLOOD SPECIMEN / Unknown Venipuncture / Unknown 06/05/2024 9:04 AM EDT 06/05/2024 9:21 AM EDT Shahnaz Scanlon MD CHEMISTRY ORDERABLES [facility] [place] [address] * POC, GLUCOSE (06/05/2024 7:27 AM EDT) [facility] Glucometer, POC 166 65 - 199 mg/dL 06/05/2024 7:[address] [facility] Comment:Supplemental ranges: <140 mg/dL before meals <180 mg/dL all other times of the day. Blood CAPILLARY BLOOD / Unknown 06/05/2024 7:27 AM EDT 06/05/2024 7:27 AM EDT Melida Valdes MD POINT OF CARE TEST O RDERABLES Performing Organization Address [facility]/ZIP Co de Phone Number [facility] [place] [address] * Heparin (unfractionated) Level (06/05/2024 3:44 AM EDT) [facility] UF Heparin 0.44 IU/mL 06/05/2024 4:[address] [facility] Comment: Heparin (anti-Xa) levels should [...] EDT Shahnaz Scanlon MD HEMATOLOGY ORDERABLE S [facility] [place] [address] * (ABNORMAL) CBC (with Diff) (06/05/2024 3:44 AM EDT) White Blood Cell 10.83(H) 4.00 - 9.50 x10(3)/mc L 06/05/2024 3:[address] [facility] Red Blood Cell 5.07 4.58 - 5.54 x10(6)/mc L 06/05/2024 3:[address] [facility] Hemoglobin 15.3 13.7 - 16.5 g/dL 06/05/2024 3:56 AM [facility] Hematocrit 46.8 40.5 - 48.5 % 06/05/2024 3:[address] [facility] Mean Cell Volume 92.3 82.9 - 93.1 fL 06/05/2024 [facility] Mean Cell Hemoglobin 30.2 27.5 - 32.1 pg 06/05/2024 3:[address] [facility] Mean Cell Hemoglobin Concentration 32.7 32.0 - 35.7 g/dL 06/05/2024 3:56 AM [facility] Platelet 219 145 - 357 x10(3)/mc L 06/05/2024 3:[address] [facility] Mean Platelet Volume 9.4 7.6 - 12.9 fL 06/05/2024 3:56 AM [facility] RDW Standard Deviation 46.7(H) 36.0 - 45.0 fL 06/05/2024 3:56 AM [facility] RDW coefficient of variation 13.9(H) 11.4 - 13.8 % 06/05/2024 3:56 AM [facility] NRBC% auto 0.0 % 06/05/2024 3:56 AM [facility] NRBC Absolute <0.01 <0.01 x10(3)/mc L 06/05/2024 3:56 AM [facility] Neutrophil % 61.5 % 06/05/2024 3:56 AM [facility] Neutrophil Absolute (ANC) - Automated 6.65(H) 1.70 - 6.10 x10(3)/mc L 06/05/2024 3:56 AM [facility] Lymph % 24.0 % 06/05/2024 3:56 AM [facility] Lymph Absolute 2.60 0.90 - 3.20 x10(3)/mc L 06/05/2024 3:56 AM [facility] Monocyte % 10.9 % 06/05/2024 3:56 AM [facility] Monocyte Absolute 1.18(H) 0.30 - 0.90 x10(3)/mc L 06/05/2024 3:56 AM [facility] Eos % 2.2 % 06/05/2024 3:56 AM [facility] Eos Absolute 0.24 0.00 - 0.40 x10(3)/mc L 06/05/2024 3:56 AM [facility] Basophil % 0.8 % 06/05/2024 3:56 AM [facility] Baso Absolute 0.09 0.00 - 0.10 x10(3)/mc L 06/05/2024 3:[address] [facility] Immature Gran % 0.6 % 3:[address] [facility] Immature Gran Absolute 0.07(H) 0.00 - 0.04 x10(3)/mc L 06/05/2024 3:[address] [facility] Blood VENOUS BLOOD SPECIMEN / Unknown Venipuncture / Unknown 06/05/2024 3:44 AM EDT 06/05/2024 3:50 AM EDT Shahnaz Scanlon MD HEMATOLOGY ORDERABLE S Performing Organization Address City/[facility]/ZIP Co de Phone Number [facility] [place] [address] * Magnesium (06/05/2024 3:44 AM EDT) Magnesium 0.92 0.69 - 1.07 mMol/L 06/05/2024 4:[address] [facility] Blood VENOUS BLOOD SPECIMEN / Unknown Venipuncture / Unknown 06/05/2024 3:44 AM EDT 06/05/2024 3:50 AM EDT Shahnaz Scanlon MD CHEMISTRY ORDERABLES Performing Organization Address City/[facility]/ZIP Co de Phone Number [facility] [place] [address] * (ABNORMAL) Basic Metabolic Panel (06/05/2024 3:44 AM EDT) Glucose 155 65 - 199 mg/dL 06/05/2024 4:[address] [facility] Comment:Glucose Concentratio n >=200 mg/dL plus symptoms is consistent with Diabetes Mellitus. Blood Urea Nitrogen 25(H) 10 - 20 mg/dL 06/05/2024 4:[address] [facility] Creatinine 1.16 0.80 - 1.50 mg/dL 06/05/2024 4:[address] [facility] Sodium 136 135 - 145 mMol/L 06/05/2024 4:20 AM [facility] Potassium 3.9 3.5 - 5.0 mMol/L 06/05/2024 4:20 AM [facility] Chloride 95(L) 98 - 107 mMol/L 06/05[facility]2024 [facility] Carbon Dioxide 29 22 - 31 mMol/L 06/05/2024 4:20 AM [facility] Anion Gap 12 5 - 15 mMol/L 06/05/2024 4:20 AM [facility] Calcium 9.2 8.5 - 10.5 mg/dL 06/05/2024 4:20 AM [facility] Est Glomerular Filtration Rate - Male 69 mL/min/1. 73 m?? 06/05/2024 4:20 AM [facility] Comment: This patient's estimated GFR [...] AM EDT Shahnaz Scanlon MD CHEMISTRY ORDERABLES [facility] [place] [address] * Potassium (06/04/2024 10:34 PM EDT) Potassium 3.7 3.5 - 5.0 mMol/L 06/04/2024 11:[address] [facility] Blood VENOUS BLOOD SPECIMEN / Unknown Venipuncture / Unknown 06/04/2024 10:34 PM EDT 06/04/2024 10:39 PM EDT Shahnaz Scanlon MD CHEMISTRY ORDERABLES [facility] [place] [address] * POC, GLUCOSE (06/04/2024 7:43 PM EDT) Glucometer, POC 175 65 - 199 mg/dL 06/04/2024 7:[address] [facility] Comment:Supplemental ranges: <140 mg/dL before meals <180 mg/dL all other times of the day. Blood CAPILLARY BLOOD / Unknown 06/04/2024 7:43 PM EDT 06/04/2024 7:43 PM EDT Melida Valdes MD POINT OF CARE TEST O RDERABLES [facility] [place] [address] * Potassium (06/04/2024 4:35 PM EDT) Potassium 4.0 3.5 - 5.0 mMol/L 06/04/2024 5:[address] [facility] Blood VENOUS BLOOD SPECIMEN / Unknown Venipuncture / Unknown 06/04/2024 4:35 PM EDT 06/04/2024 4:40 PM EDT Shahnaz Scanlon MD CHEMISTRY ORDERABLES [facility] [place] [address] * POC, GLUCOSE (06/04/2024 3:26 PM EDT) Glucometer, POC 154 65 - 199 mg/dL 06/04/2024 3:[address] [facility] Comment:Supplemental ranges: <140 mg/dL before meals <180 mg/dL all other times of the day. Blood CAPILLARY BLOOD / Unknown 06/04/2024 3:26 PM EDT 06/04/2024 3:27 PM EDT Melida Valdes MD POINT OF CARE TEST O RDERABLES Performing Organization Address [facility] Co de Phone Number [facility] [place] [address] * POC, GLUCOSE (06/04/2024 11:09 AM EDT) Glucometer, POC 188 65 - 199 mg/dL 06/04/2024 11:[address] [facility] Comment:Supplemental ranges: <140 mg/dL before meals <180 mg/dL all other times of the day. Blood CAPILLARY BLOOD / Unknown 06/04/2024 11:09 AM EDT 06/04/2024 11:09 AM EDT Delroy Fofana MD POINT OF CARE TEST ORDERABLES Performing Organization Address [facility] de Phone Number [facility] [place] [address] * Heparin (unfractionated) Level (06/04/2024 10:41 AM EDT) UF Heparin 0.43 IU/mL 06/04/2024 11:[address] [facility] Comment: Heparin (anti-Xa) levels should [...] MD HEMATOLOGY ORDERABLE S Performing Organization Address City/[facility]/ZIP Co de Phone Number [facility] [place] [address] * Potassium (06/04/2024 10:41 AM EDT) Potassium 4.0 3.5 - 5.0 mMol/L 06/04/2024 11:[address] [facility] Blood VENOUS BLOOD SPECIMEN / Unknown Venipuncture / Unknown 06/04/2024 10:41 AM EDT 06/04/2024 10:46 AM EDT Shahnaz Scanlon MD CHEMISTRY ORDERABLES Performing Organization Address [facility] Co de Phone Number [facility] [place] [address] * POC, GLUCOSE (06/04/2024 7:11 AM EDT) Glucometer, POC 182 65 - 199 mg/dL 06/04/2024 7:[address] [facility] Comment:Supplemental ranges: <140 mg/dL before meals <180 mg/dL all other times of the day. Blood CAPILLARY BLOOD / Unknown 06/04/2024 7:11 AM EDT 06/04/2024 7:12 AM EDT Delroy Fofana MD POINT OF CARE TEST ORDERABLES Performing Organization Address [facility] Co de Phone Number [facility] [place] [address] * Heparin (unfractionated) Level (06/04/2024 4:38 AM EDT) Pathologist [facility] UF Heparin 0.41 IU/mL 06/04/2024 5:[address] [facility] Comment: Heparin (anti-Xa) levels should [...] EDT Shahnaz Scanlon MD HEMATOLOGY ORDERABLE S [facility] [place] [address] * (ABNORMAL) CBC (with Diff) (06/04/2024 4:38 AM EDT) [facility] White Blood Cell 11.45(H) 4.00 - 9.50 x10(3)/mc L 06/04/2024 5:[address] [facility] Red Blood Cell 5.35 4.58 - 5.54 x10(6)/mc L 06/04/2024 5:[address] [facility] Hemoglobin 16.0 13.7 - 16.5 g/dL 06/04/2024 5:[address] [facility] Hematocrit 49.6(H) 40.5 - 48.5 % 06/04/2024 5:12 [address] [facility] Mean Cell Volume 92.7 82.9 - 93.1 fL 06/04/2024 5:12 AM [facility] Mean Cell Hemoglobin 29.9 27.5 - 32.1 pg 06/04/2024 5:12 AM [facility] Mean Cell Hemoglobin Concentration 32.3 32.0 - 35.7 g/dL 06/04/2024 5:12 AM [facility] Platelet 222 145 - 357 x10(3)/mc L 06/04/2024 5:12 AM [facility] Mean Platelet Volume 9.5 7.6 - 12.9 fL 06/04/2024 5:12 AM [facility] RDW Standard Deviation 47.6(H) 36.0 - 45.0 fL 06/04/2024 5:12 AM [facility] RDW coefficient of variation 14.1(H) 11.4 - 13.8 % 06/04/2024 5:12 AM [facility] NRBC% auto 0.0 % 06/04/2024 5:12 AM [facility] NRBC Absolute <0.01 <0.01 x10(3)/mc L 06/04/2024 5:12 AM [facility] Neutrophil % 60.3 % 06/04/2024 5:12 AM [facility] Neutrophil Absolute (ANC) - Automated 6.91(H) 1.70 - 6.10 x10(3)/mc L 06/04/2024 5:12 AM [facility] Lymph % 25.1 % 06/04/2024 5:12 AM [facility] Lymph Absolute 2.87 0.90 - 3.20 x10(3)/mc L 06/04/2024 5:12 AM [facility] Monocyte % 10.6 % 06/04/2024 5:12 AM [facility] Monocyte Absolute 1.21(H) 0.30 - 0.90 x10(3)/mc L 06/04/2024 5:[address] [facility] Eos % 2.8 % 06/04/2024 5:[address] [facility] Eos Absolute 0.32 0.00 - 0.40 x10(3)/mc L 06/04/2024 5:[address] [facility] Basophil % 0.7 % 06/04/2024 5:[address] [facility] Baso Absolute 0.08 0.00 - 0.10 x10(3)/mc L 06/04/2024 5:[address] [facility] Immature Gran % 0.5 % 5:[address] [facility] Immature Gran Absolute 0.06(H) 0.00 - 0.04 x10(3)/mc L 06/04/2024 5:[address] [facility] Blood VENOUS BLOOD SPECIMEN / Unknown Venipuncture / Unknown 06/04/2024 4:38 AM EDT 06/04/2024 5:07 AM EDT Shahnaz Scanlon MD HEMATOLOGY ORDERABLE S [facility] [place] [address] * Magnesium (06/04/2024 4:38 AM EDT) Magnesium 0.84 0.69 - 1.07 mMol/L 06/04/2024 5:[address] [facility] Blood VENOUS BLOOD SPECIMEN / Unknown Venipuncture / Unknown 06/04/2024 4:38 AM EDT 06/04/2024 5:07 AM EDT Shahnaz Scanlon MD CHEMISTRY ORDERABLES [facility] [place] [address] * (ABNORMAL) Basic Metabolic Panel (06/04/2024 4:38 AM EDT) Glucose 118 65 - 199 mg/dL 06/04/2024 5:35 AM [facility] Comment:Glucose Concentratio n >=200 mg/dL plus symptoms is consistent with Diabetes Mellitus. Blood Urea Nitrogen 22(H) 10 - 20 mg/dL 06/04/2024 5:35 AM [facility] Creatinine 1.22 0.80 - 1.50 mg/dL 06/04/2024 5:35 AM [facility] Sodium 137 135 - 145 mMol/L 06/04/2024 5:35 AM [facility] Potassium 3.6 3.5 - 5.0 mMol/L 06/04/2024 5:35 AM [facility] Chloride 97(L) 98 - 107 mMol/L 06/04/2024 5:35 AM [facility] Carbon Dioxide 29 22 - 31 mMol/L 06/04/2024 5:35 AM [facility] Anion Gap 11 5 - 15 mMol/L 06/04/2024 5:35 AM [facility] Calcium 9.0 8.5 - 10.5 mg/dL 06/04/2024 5:35 AM [facility] Est Glomerular Filtration Rate - Male 65 mL/min/1. 73 m?? 06/04/2024 5:35 AM [facility] Comment: This patient's estimated GFR [...] Scanlon MD CHEMISTRY ORDERABLES Performing Organization Address [facility]/ZIP Co de Phone Number [facility] [place] [address] * Heparin (unfractionated) Level (06/03/2024 8:58 PM EDT) UF Heparin 0.27 IU/mL 06/03/2024 9:[address] [facility] Comment: Heparin (anti-Xa) levels should [...] 8:58 PM EDT 06/03/2024 9:05 PM EDT Shanhaz Scanlon MD HEMATOLOGY ORDERABLE S Performing Organization Address City/[facility]/ZIP Co de Phone Number [facility] [place] [address] * POC, GLUCOSE (06/03/2024 8:05 PM EDT) Glucometer, POC 136 65 - 199 mg/dL 06/03/2024 8:[address] [facility] Comment:Supplemental ranges: <140 mg/dL before meals <180 mg/dL all other times of the day. Blood CAPILLARY BLOOD / Unknown 06/03/2024 8:05 PM EDT 06/03/2024 8:05 PM EDT Delroy Fofana MD POINT OF CARE TEST ORDERABLES Performing Organization Address [facility] Co de Phone Number [facility] [place] [address] * POC, GLUCOSE (06/03/2024 5:48 PM EDT) Glucometer, POC 191 65 - 199 mg/dL 06/03/2024 5:[address] [facility] Comment:Supplemental ranges: <140 mg/dL before meals <180 mg/dL all other times of the day. Blood CAPILLARY BLOOD / Unknown 06/03/2024 5:48 PM EDT 06/03/2024 5:49 PM EDT Delroy Fofana MD POINT OF CARE TEST ORDERABLES Performing Organization Address [facility] Co de Phone Number [facility] [place] [address] * CT Chest wo Contrast (Generic) (06/03/2024 4:33 PM EDT) WORKSTATION ID [id number] DH RAD Anatomical Region Laterality Modality Chest Computed Tomogra phy Impressions 06/03/2024 4:47 PM EDT Cardiomegaly. Biventricular ICD leads in place. Thank you for letting us participate in the care of this patient. ??If you are a health care provider and have any questions regarding this report, please contact the number below. ??For patients who have questions please contact the health client care specialist that requested your imaging first. ? Electronically signed by: Stuart Aponte MD, [facility] ??([phone]), at 06/03/2024 4:47 PM Narrative 06/03/2024 4:47 [...] have questions please contactthe health client care specialist that requested your imaging first. Bobby Loja MD IMG CT ORDERABLES * Carotid Duplex, Bilateral (06/03/2024 2:19 PM EDT) VB Text Report Department: Vascular Surgery Lab Patient: [id number] (GEORGE MEHTA) CPT: 26198 Referring Physician: OBBBY LOJA ?? Phone: Indications: Pre-op CABG, ? [...] Heparin 0.15 IU/mL 06/03/2024 1:[address] [facility] Comment: Heparin (anti-Xa) levels should [...] EDT Shahnaz Scanlon MD HEMATOLOGY ORDERABLE S [facility] [place] [address] * POC, GLUCOSE (06/03/2024 11:14 AM EDT) [facility] Signature Glucometer, POC 166 65 - 199 mg/dL 06/03/2024 11:[address] [facility] Comment:Supplemental ranges: <140 mg/dL before meals <180 mg/dL all other times of the day. Blood CAPILLARY BLOOD / Unknown 06/03/2024 11:14 AM EDT 06/03/2024 11:14 AM EDT Delroy Fofana MD POINT OF CARE TEST ORDERABLES [facility] [place] [address] * (ABNORMAL) Troponin-T, High Sensitivity 3 Hour (06/03/2024 10:06 AM EDT) Troponin-T, High Sensitivity 266(H) <=22 ng/L 06/03/2024 10:[address] [facility] Comment: This patient's troponin T [...] [facility] Test Catalog Troponin - https://[facility] centerAmerican Efficient.testcatalog.org/catalogs/565/files/54973 Reference: Fourth [place] Definition of Myocardial Infarction. Journal of the [place] [employer] 2018;72:7619-5446 Troponin-T, HS 3 hr delta 06/03/2024 10:[address] [facility] Comment:Delta troponin value not calculated, sample collected outside of delta calculation time limit. Blood VENOUS BLOOD SPECIMEN / Unknown IP Care Team Draw / Unknown 06/03/2024 10:06 AM EDT 06/03/2024 10:15 AM EDT Delroy Fofana MD CHEMISTRY ORDERABLE S [facility] [place] [address] * ECHO COMPLETE W CONTRAST (06/03/2024 8:46 AM EDT) Anatomical Region Laterality Modality Cardiac Other 06/03/2024 6:52 AM EDT Narrative 06/03/2024 10:32 AM EDT [address] [place] [id number] ? Echocardiogram Report Name: GEORGE MEHTA ?Study Date: 06/03/2024 06:52 AM : 1955 ? Height: 168 cm ? Account: [id number] Age: 69 yrs ? Weight: 102 kg Gender: Male ?BSA: 2.1 m2 Ordering Physician: SHAHNAZ SCANLON Referring Physician: NEHAL QUINTERO Performed By: Sara Kebede RDCS Reason For Study: STEMI Exam Location: [facility]. Interpretation Summary -Left ventricular systolic function is [...] fellow performed study of today's date). Procedure Complete-52040. Image enhancement Optison was used for left [...] Note Jonnie Jordan MD - 06/03/2024 [address] [place] [id number] Echocardiogram Report Name: GEORGE MEHTA Study Date: 406:52 AM : 1955 Height: 168 cm Account: [id number] Age: 69 yrs Weight: 102 kg Gender: Male BSA: 2.1 m2 Ordering Physician: SHAHNAZ SCANLON Referring Physician: NEHAL QUINTERO Performed By: Sara Kebede RDCS Reason For Study: STEMI Exam Location: [facility]. Interpretation Summary -Left ventricular systolic function is [...] a fellow performed study of's date). Procedure Complete-36661. Image enhancement Optison was used for left [...] 289(H) <=22 ng/L 06/03/2024 9:[address] [facility] Comment: This patient's troponin T [...] [facility] Test Catalog Troponin - https://[email or web address].org/catalogs/565/files/08219 Reference: Fourth [place] Definition of Myocardial Infarction. Journal of the [place] [employer] 2018;72:5086-6497 Troponin-T, HS 1 hr delta 5 ng/L 06/03/2024 9:[address] [facility] Comment:The 1 hour Troponin T delta value is the absolute difference between the Troponin T concentrations of the initial and subsequent sample collected between 45 - 120 minutes following the initial collection. Blood VENOUS BLOOD SPECIMEN / Unknown IP Care Team Draw / Unknown 06/03/2024 8:27 AM EDT 06/03/2024 8:37 AM EDT Delroy Fofana MD CHEMISTRY ORDERABLE S [facility] [place] [address] * POC, GLUCOSE (06/03/2024 7:54 AM EDT) [facility] Signature Glucometer, POC 195 65 - 199 mg/dL 06/03/2024 7:[address] [facility] Comment:Supplemental ranges: <140 mg/dL before meals <180 mg/dL all other times of the day. Blood CAPILLARY BLOOD / Unknown 06/03/2024 7:54 AM EDT 06/03/2024 7:55 AM EDT Nuha Rojo MD POINT OF CARE TEST ORDERABLES [facility] [place] [address] * (ABNORMAL) Troponin-T, High Sensitivity (06/03/2024 7:39 AM EDT) Troponin-T, High Sensitivity Initial 284(H) <=22 ng/L 06/03/2024 8:[address] [facility] Comment: This patient's troponin T [...] [facility] Test Catalog Troponin - [email or web address] Reference: Fourth [place] Definition of Myocardial Infarction. Journal of the [place] [employer] 2018;72:2916-5316 Blood VENOUS BLOOD SPECIMEN / Unknown IP Care Team Draw / Unknown 06/03/2024 7:39 AM EDT 06/03/2024 7:48 AM EDT Delroy Fofana MD CHEMISTRY ORDERABLE S [facility] [place] [address] * (ABNORMAL) Troponin-T, High Sensitivity 3 Hour (06/03/2024 5:11 AM EDT) Troponin-T, High Sensitivity 254(H) <=22 ng/L 06/03/2024 5:[address] [facility] Comment: This patient's troponin T [...] [facility] Test Catalog Troponin - [email or web address] Reference: Fourth [place] Definition of Myocardial Infarction. Journal of the [place] [employer] 2018;72:1143-0646 Troponin-T, HS 3 hr delta 46 ng/L 06/03/2024 5:[address] [facility] Comment:The 3 hour Troponin T delta value is the absolute difference between the Troponin T concentrations of the initial and subsequent sample collected between 2 h: 45 min and 6 h following the initial collection Blood VENOUS BLOOD SPECIMEN / Unknown IP Care Team Draw / Unknown 06/03/2024 5:11 AM EDT 06/03/2024 5:20 AM EDT Shahnaz Scanlon MD CHEMISTRY ORDERABLES [facility] [place] [address] * (ABNORMAL) Troponin-T, High Sensitivity 1 Hour (06/03/2024 3:07 AM EDT) Troponin-T, High Sensitivity 218(H) <=22 ng/L 06/03/2024 3:[address] [facility] Comment: This patient's troponin T [...] [facility] Test Catalog Troponin - https://[facility], formerly [facility] centerAmerican [email or web address] Reference: Fourth [place] Definition of Myocardial Infarction. Journal of the [place] [employer] 2018;72:5708-3435 Troponin-T, HS 1 hr delta 10 ng/L 06/03/2024 3:[address] [facility] Comment:The 1 hour Troponin T delta value is the absolute difference between the Troponin T concentrations of the initial and subsequent sample collected between 45 - 120 minutes following the initial collection. Blood VENOUS BLOOD SPECIMEN / Unknown IP Care Team Draw / Unknown 06/03/2024 3:07 AM EDT 06/03/2024 3:12 AM EDT Shahnaz Scanlon MD CHEMISTRY ORDERABLES [facility] [place] [address] * XR Chest One View (06/03/2024 2:41 AM EDT) WORKSTATION ID [id number] RAD Anatomical Region Laterality Modality Chest N/A Digital Radiogra phy Impressions 06/03/2024 3:06 AM EDT No radiographically evident acute cardiopulmonary process. Thank you for letting us participate in the care of this patient. ??If you are a health care provider and have any questions regarding this report, please contact the number below. ??For patients who have questions please contact the health client care specialist that requested your imaging first. ? Narrative [...] have questions please contactthe health client care specialist that requested your imaging first. Electronically signed by: Corazon Mauro MD, [facility]([phone]), at 06/03/2024 3:06 AM Shahnaz Scanlon MD IMG DX ORDERABLES * Heparin (unfractionated) Level (06/03/2024 2:13 AM EDT) UF Heparin 0.56 IU/mL 06/03/2024 4:[address] [facility] Comment: Heparin (anti-Xa) levels should [...] EDT Shahnaz Scanlon MD HEMATOLOGY ORDERABLE S [facility] [place] [address] * (ABNORMAL) Troponin-T, High Sensitivity (06/03/2024 2:13 AM EDT) Troponin-T, High Sensitivity Initial 208(H) <=22 ng/L 06/03/2024 3:[address] [facility] Comment: This patient's troponin T [...] [facility] Test Catalog Troponin - [email or web address]/catalogs/[email or web address] Reference: Fourth [place] Definition of Myocardial Infarction. Journal of the [place] [employer] 2018;72:9517-0339 Blood VENOUS BLOOD SPECIMEN / Unknown IP Care Team Draw / Unknown 06/03/2024 2:13 AM EDT 06/03/2024 2:32 AM EDT Shahnaz Scanlon MD CHEMISTRY ORDERABLES Performing Organization Address City/[facility]/ZIP Co de Phone Number [facility] [place] [address] * Magnesium (06/03/2024 2:13 AM EDT) Magnesium 0.86 0.69 - 1.07 mMol/L 06/03/2024 3:[address] [facility] Blood VENOUS BLOOD SPECIMEN / Unknown IP Care Team Draw / Unknown 06/03/2024 2:13 AM EDT 06/03/2024 2:32 AM EDT Shahnaz Scanlon MD CHEMISTRY ORDERABLES [facility] [place] [address] * Basic Metabolic Panel (06/03/2024 2:13 AM EDT) Glucose 126 65 - 199 mg/dL [facility]/03[facility]2024 [facility] Comment:Glucose Concentratio n >=200 mg/dL plus symptoms is consistent with Diabetes Mellitus. Blood Urea Nitrogen 20 10 - 20 mg/dL 06/03/2024 3:[address] [facility] Creatinine 1.13 0.80 - 1.50 mg/dL 06/03/2024 3:02 [address] [facility] Sodium 139 135 - 145 mMol/L 06/03/2024 3:02 AM [facility] Potassium 4.2 3.5 - 5.0 mMol/L 06/03/2024 3:02 AM [facility] Chloride 101 98 - 107 mMol/L 06/03/2024 3:02 AM [facility] Carbon Dioxide 26 22 - 31 mMol/L 06/03/2024 3:02 AM [facility] Anion Gap 12 5 - 15 mMol/L 06/03/2024 3:02 AM [facility] Calcium 9.8 8.5 - 10.5 mg/dL 06/03/2024 3:02 AM [facility] Est Glomerular Filtration Rate - Male 71 mL/min/1. 73 m?? 06/03/2024 3:02 AM [facility] Comment: This patient's estimated GFR [...] AM EDT Shahnaz Scanlon MD CHEMISTRY ORDERABLES [facility] [place] [address] * (ABNORMAL) CBC (with Diff) (06/03/2024 2:13 AM EDT) White Blood Cell 11.16(H) 4.00 - 9.50 x10(3)/mc L 06/03/2024 2:[address] [facility] Red Blood Cell 5.09 4.58 - 5.54 x10(6)/mc L 06/03/2024 2:[address] [facility] Hemoglobin 15.0 13.7 - 16.5 g/dL 06/03/2024 2:[address] [facility] Hematocrit 47.4 40.5 - 48.5 % 06/03/2024 2:[address] [facility] Mean Cell Volume 93.1 82.9 - 93.1 fL 06/03/2024 2:[address] [facility] Mean Cell Hemoglobin 29.5 27.5 - 32.1 pg 06/03/2024 2:[address] [facility] Mean Cell Hemoglobin Concentration 31.6(L) 32.0 - 35.7 g/dL 06/03/2024 2:[address] [facility] Platelet 217 145 - 357 x10(3)/mc L 06/03/2024 2:[address] [facility] Mean Platelet Volume 9.5 7.6 - 12.9 fL 06/03/2024 2:[address] [facility] RDW Standard Deviation 49.0(H) 36.0 - 45.0 fL 06/03/2024 2:37 AM [facility] RDW coefficient of variation 14.1(H) 11.4 - 13.8 % 06/03/2024 2:37 AM [facility] NRBC% auto 0.0 % 06/03/2024 2:37 AM [facility] NRBC Absolute <0.01 <0.01 x10(3)/mc L 06/03/2024 2:37 AM [facility] Neutrophil % 58.4 % 06/03/2024 2:37 AM [facility] Neutrophil Absolute (ANC) - Automated 6.51(H) 1.70 - 6.10 x10(3)/mc L 06/03/2024 2:37 AM [facility] Lymph % 29.9 % 06/03/2024 2:37 AM [facility] Lymph Absolute 3.34(H) 0.90 - 3.20 x10(3)/mc L 06/03/2024 2:37 AM [facility] Monocyte % 8.1 % 06/03/2024 2:37 AM [facility] Monocyte Absolute 0.90 0.30 - 0.90 x10(3)/mc L 06/03/2024 2:37 AM [facility] Eos % 2.4 % 06/03/2024 2:37 AM [facility] Eos Absolute 0.27 0.00 - 0.40 x10(3)/mc L 06/03/2024 2:37 AM [facility] Basophil % 0.8 % 06/03/2024 2:37 AM [facility] Baso Absolute 0.09 0.00 - 0.10 x10(3)/mc L 06/03/2024 2:37 AM [facility] Immature Gran % 0.4 % 2:37 AM [facility] Immature Gran Absolute 0.05(H) 0.00 - 0.04 x10(3)/mc L 06/03/2024 2:37 AM [facility] Blood VENOUS BLOOD SPECIMEN / Unknown IP Care Team Draw / Unknown 06/03/2024 2:13 AM EDT 06/03/2024 2:31 AM EDT Shahnaz Scanlon MD HEMATOLOGY ORDERABLE S [facility] [place] [address] * Lipid Panel (Reflex Direct LDL) (06/03/2024 2:13 AM EDT) Cholesterol, Total 76 mg/dL 06/03/2024 3:02 AM [facility] Comment: Desirable: < 200 mg/dL Borderline High: 200 - 239 mg/dL High: > or = 240 mg/dL Triglyceride 75 mg/dL 06/03/2024 3:02 AM [facility] Comment: Normal: <150 mg/dL Borderline High: 150-199 mg/dL High: 200-499 mg/dL Very High: > or =500 mg/dL HDL Cholesterol 39 mg/dL 3:02 AM [facility] Comment:Males: High Risk: <4 0 mg/dL LDL Cholesterol 21 mg/dL 3:02 AM [facility] Comment: Desirable: <100 mg/dL Above Desirable: 100-129 mg/dL Borderline High: 130-159 mg/dL High: 160-189 mg/dL Very High: > or =190 mg/dL Note: LDL calculation updated to the NIH LDL formula as of 03/07/2024 Non-HDL Cholesterol 37 mg/dL 06/03/2024 3:02 AM [facility] Comment: Desirable: <130 mg/dL Above Desirable: 130-159 mg/dL Borderline High: 160-189 mg/dL High: 190-219 mg/dL Very High: > or = 220 mg/dL Blood VENOUS BLOOD SPECIMEN / Unknown IP Care Team Draw / Unknown 06/03/2024 2:13 AM EDT 06/03/2024 2:32 AM EDT [facility] - 06/03/2024 3:02 AM EDT It [...] ACC/AHA Guidelines (most recently Bruce et al. [facility] 05/07/22): * For individuals with [...] Scanlon MD CHEMISTRY ORDERABLES Performing Organization Address [facility] Co de Phone Number [facility] [place] [address] * (ABNORMAL) APTT (06/03/2024 2:13 AM EDT) Partial Thromboplastin Time 105(HHH) 25 - 37 sec 06/03/2024 4:[address] [facility] Comment: The PTT is NOT [...] MD HEMATOLOGY ORDERABLE S Performing Organization Address [facility] Co de Phone Number [facility] [place] [address] * Prothrombin Time (06/03/2024 2:13 AM EDT) Prothrombin Time 11.5 9.4 - 12.5 sec 06/03/2024 4:[address] [facility] International Normalization Ratio 1.0 <=4.9 06/03/2024 4:[address] [facility] Comment: An INR < 2.0 [...] EDT Shahnaz Scanlon MD HEMATOLOGY ORDERABLE S [facility] [place] [address] * Hepatic Function Panel (06/03/2024 2:13 AM EDT) Albumin 3.8 3.2 - 5.2 g/dL 06/03/2024 3:[address] [facility] Aspartate Aminotransferase 20 <=39 unit/L 06/03/2024 3:[address] [facility] Alanine Aminotransferase 12 0 - 55 unit/L 06/03/2024 3:[address] [facility] Alkaline Phosphatase 76 40 - 130 unit/L 06/03/2024 3:[address] [facility] Bilirubin, Total 0.4 <=1.3 mg/dL 06/03/2024 3:[address] [facility] Bilirubin, Direct <0.2 0.0 - 0.3 mg/dL 06/03/2024 3:[address] [facility] Protein, Total 7.0 6.1 - 8.0 g/dL 06/03/2024 3:[address] [facility] Blood VENOUS BLOOD SPECIMEN / Unknown IP Care Team Draw / Unknown 06/03/2024 2:13 AM EDT 06/03/2024 2:32 AM EDT Shahnaz Scanlon MD CHEMISTRY ORDERABLES [facility] [place] [address] * (ABNORMAL) pro-Brain Natriuretic Peptide (06/03/2024 2:13 AM EDT) NT-proBNP 1,628(H) <=124 pg/mL 06/03/2024 4:[address] [facility] Blood VENOUS BLOOD SPECIMEN / Unknown IP Care Team Draw / Unknown 06/03/2024 2:13 AM EDT 06/03/2024 2:32 AM EDT Shahnaz Scanlon MD CHEMISTRY ORDERABLES Performing Organization Address City/[facility]/ZIP Co de Phone Number [facility] [place] [address] * Phosphorus (06/03/2024 2:13 AM EDT) Phosphorus 4.4 2.5 - 4.5 mg/dL 06/03/2024 3:[address] [facility] Blood VENOUS BLOOD SPECIMEN / Unknown IP Care Team Draw / Unknown 06/03/2024 2:13 AM EDT 06/03/2024 2:32 AM EDT Shahnaz Scanlon MD CHEMISTRY ORDERABLES Performing Organization Address City/[facility]/ZIP Co de Phone Number [facility] [place] [address] * EKG 12 Lead (06/03/2024 1:45 AM EDT) Ventricular rate 63 BPM MUSE SYSTEM Atrial Rate 63 BPM MUSE SYSTEM P-R Interval 168 ms MUSE SYSTEM QRS Duration 96 ms MUSE SYSTEM Q-T Interval 400 ms MUSE SYSTEM QTC Calculated (Bezet) 409 ms MUSE SYSTEM Calculated P [place] 65 degrees MUSE SYSTEM Calculated R [place] 70 degrees MUSE SYSTEM Calculated T [place] -86 degrees MUSE SYSTEM INTERPRETATION Atrial-sensed ventricular-paced rhythm Abnormal ECG No previous ECGs available I personally reviewed the tracing and edited the fellows interpretation Confirmed by fellow Sunni Agudelo ([id number]) on 06/04/2024 3:55:40 PM Confirmed by MD Tamia, Stuart Perry ([id number]) on 06/05/2024 11:46:48 AM MUSE SYSTEM 06/03/2024 1:45 AM EDT 06/05/2024 11:46 AM EDT Shahnaz Scanlon MD ECG ORDERABLES MUSE SYSTEM * CARDIAC CATHETERIZATION (06/03/2024 12:42 AM EDT) Anatomical Region Laterality Modality Other Narrative 06/04/2024 2:22 PM EDT ?[facility] ? Cardiac Catheterization/Intervention Report ? Patient Name: Tyson, George L. ? Procedure Date: 06/02/2024 ? A #: [id number] ? Primary Physician: Nuha Shen I ? Case #: [id number] ? File Name: [id number] ? Catheterization Order Number: [id number] ? [facility] ? Final Report [place], [place] ? Patient Name: ? George L. Tyson ? ID#: ?[id number] ? : ?1955 ? Procedure Date: ? June 02, 2024 ? Case #: ? [id number] ? Room: ? 5 ? Case Physician: [...] procedure was Emergent. The indication for ?the cytology laboratory manager visit is ACS less than or equal [...] ?3.5 guiding catheter and a 3.5 Fr [place] 20 Mhz using Manual ?pullback. ??Imaging was [...] 3.5 guiding catheter and a 3.5 Fr [place] 20 Mhz using ?Manual pullback. ??Imaging was [...] Procedure Note Nuha Shen MD - 07/20/2024 [facility] Cardiac Catheterization/Intervention Report Patient Name: George Mehta Procedure Date: 06/02/2024 A #: [id number] Primary Physician: Nuha Shen I Case #: [id number] File Name: [id number] Catheterization Order Number: [id number] [facility] FinalReport [place], [place] Patient Name: George Mehta ID#:[id number] :1955 Procedure Date: June 02, 2024 Case [...] was designated as ASA Class IV. The [facility] clinicalfrailty scale is 5: Mildly Frail. Diagnostic Tests: Electrocardiography: EKG was assessed by ECG. EKG was Abnormal. EKG showed STDeviation >= 0.5 mm. Medications Prior to Procedure: Sacubitril and Valsartan, Aspirin, Beta Erik, Statin and Thrombolytic (any). Indications for Diagnostic Cath: The priority of the diagnostic procedure was Emergent. Theindication for the cytology laboratory manager visit is ACS less than or equal [...] units of heparin were administered. A total [id number] of Omnipaque were opened, 84cc of Omnipaque were administered [id number] of Omnipaque were wasted. Radiation: Fluoro time [...] 3.5 guiding catheter and a 3.5 Fr [place] 20 Mhz usingManual pullback. Imaging was successful. [...] 3.5 guiding catheter and a 3.5 Fr [place] 20 Mhzusing Manual pullback. Imaging was successful. Indication: IVUS performed for pre intervention planning. Findings Pre-Intervention: scattered plaque, calcification and [id number] degrees calcification. Findings Post-Intervention: Stent not imaged [...] * POC, GLUCOSE (06/02/2024 11:31 PM EDT) [facility] Glucometer, POC 156 65 - 199 mg/dL 06/02/2024 11:[address] [facility] Comment:Supplemental ranges: <140 mg/dL before meals <180 mg/dL all other times of the day. Blood CAPILLARY BLOOD / Unknown 06/02/2024 11:31 PM EDT 06/02/2024 11:31 PM EDT Nuha Rojo MD POINT OF CARE TEST ORDERABLES [facility] [place] [address] documented in this encounter Visit Diagnoses Not [...] 2100, Last dose on Fri06/23/24 at 0900, Flight Coordinator recommended duration is 3 days., Routine Given [...] 8:02 PM EST 2 tablets sodium chloride ([place]) 0.65 % nasal spray 1 spray 1 [...] Routine 0823 (Given - Provider: Mary Lou aLne RN) 0812 (Given - Provider: Michelle Orozco [...] DAILY, First dose (after last modification) on [facility] 06/19/24 at 0900, Until Discontinued, [...] 2100, Last dose on Fri06/23/24 at 0900, Flight Coordinator recommended duration is 3 days., Routine 2043 [...] oral route first line., Routine sodium chloride ([place]) 0.65 % nasal spray 1 spray 1 [...] 6 hours upon arrival to Unit. Give OR if unable to take PO, Routine Group [...] Routine documented in this encounter Care Teams Byproduct Engineer Relationship Specialty Start Date End Date Mauro Berumen MD [address] [place] [address] PCP - General Family Medicine 06/02/24 documented as of this encounter
--- OUTSIDE RECORDS SUMMARY | 2024-08-09 10:58 | XMS_ITS | Encounter Summary ---
Author Organization [facility] Address [facility] [place] [address] Care Team Providers Care Ceramic Plater Name Role Phone Mauro Berumen MD Primary Care Provider [phone] Encounter Details Date Type Department Care Team (Latest Contact Info) Description 06/03/2024 Travel Social History Tobacco Use Types Packs/Day Years Used Date Smoking Tobacco: Every Day Cigarettes Smokeless Tobacco: Never [facility] Utilities Answer Date Recorded In the [...] any time in the past 12 m [facility], were you homeless or living in a [...] on filedocumented in this encounter Care Teams Ceramic Plater Relationship Specialty Start Date End Date Mauro Berumen MD [address] [place] [id number] PCP - General Family Medicine 06/02/24 documented as of this encounter
--- OUTSIDE RECORDS SUMMARY | 2024-08-09 11:00 | XMS_ITS | Encounter Summary ---
Author Organization [facility] Address [facility] [place] [address] Care Team Providers Care Assistant City Attorney Name Role Phone Mauro Berumen MD Primary Care Provider [phone] Encounter Details Date Type Department Care Team (Late st Contact Info) Description 06/02/2024 External Results Administration [facility] [place] [phone] Social History Tobacco Use Types Packs/Day Years Used Date Smoking Tobacco: Never Assessed [facility] Utilities Answer Date Recorded In the past 12 months has th e electric, gas, oil, or water [employer] threatened to shut off services in your [...] any time in the past 12 m [facility], were you homeless or living [...] on filedocumented in this encounter Care Teams Assistant City Attorney Relationship Specialty Start Date End Date Mauro Berumen MD [address] [place] [address] PCP - General Family Medicine 06/02/24 documented as of this encounter
--- OUTSIDE RECORDS SUMMARY | 2024-08-09 11:00 | XMS_ITS | Encounter Summary ---
Author Organization [facility] Address [facility] [place] [address] Care Team Providers Care Continuous Miner Operator Helper Name Role Phone Mauro Berumen MD Primary Care Provider [phone] Encounter Details Date Type Department Care Team (Late st Contact Info) Description 06/02/2024 Notes Only Cardiology [facility] [place] [phone] Sascha Silva MD [facility] [place] [address] Social History Tobacco Use Types Packs/Day Years Used Date Smoking Tobacco: Never Assessed [facility] Utilities Answer Date Recorded In [...] time in the past 12 m [facility], were you homeless or living in [...] Data If Hospital to which patient presented= [facility]: ED Walk In [...] No contraindicationst to lytics. No cabg, 3X MN with JENNA, most recent 5 years ago. 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 to blender laborer STEMI Alert called: Yes Lens Polisher Hand Activated by: Retail Specialist Initial Disposition: Admit Lens Polisher Hand documented in this encounter Plan of Treatment Not on file documented as of this encounter Visit Diagnoses Not on filedocumented in this encounter Care Teams Continuous Miner Operator Helper Relationship Specialty Start Date End Date Mauro Berumen MD [address] [place] [id number] PCP - General Family Medicine 06/02/24 documented as of this encounter
--- OUTSIDE RECORDS SUMMARY | 2024-08-09 11:00 | XMS_ITS | Continuity of Care Document ---
Author Organization [place] [facility] Address [address] [place] [address] Assessment No assessment recorded. Plan of Treatment Reminders Order Date Submit Date Provider Last Modified By Organization Details Last Modified Time Details Appointments Office Visit 30 2024 08:30A M MAURO SANTOS Not available Not available Not available Lab hemoglobi n A1C, fingersti ck 2023 024 [facility], [address] [place] [address], [phone], 06/24/2024 12:05:37 Referral None recorded. Procedures None recorded. Surgeries None recorded. Imaging None recorded. Medication Orders None recorded. Patient TargetsNo targets recorded. Patient Instructions Encounter Date Encounter Id Patient Instructions Last Modified By Organization Details Last Modified Time 06/24/2024 [id number] Dear Arturo Mehta, Thank you for visiting [...] with cardiac surgery on July 20 at [facility] for further evaluation and potential clearance to [...] hemoglobin A1C 7.4 % <5.7 Not Available [address], [address], 06/24/2024 11:59:16 06/02/20 24 06/02/2024 vrad repor t Patien t Name: Erica Hernandez Unit #: [id number] Loc: ER Orderi ng Provid er: Acctrace t #: [id number] Status : REG ER Primar y [...] MD. Lanette ng:Mikey Luque MD Access ion#=[id number] Ordere d By: CC: ------ ------ [...] the addres s above. Thank- you. sergio [facility] [address], [place], [address] 06/07/2024 08:13:56 06/03/2006/03/2024 x-ray imagi ng repor t Patien t Name: Erica Hernandez Unit #: [id number] Loc: ER Orderlisbeth bernard Provid er: Moises Hua Acctrace t #: [id number] Status : DEP ER Primar y Care [...] error, please notify us immedi abigailly at [phone] and return the origin al report to us at the addres s above. Thank- you. INTERFACE [facility] [address] , [place], [address] 06/03/2024 08:29:41 Result Notes None recorded. Problems Name Problem SNOMED Code Status Onset Date Resolution Date Notes Provider Name and Address Organization Details Recorded Time Coronary artery bypass grafts x 3 Active [address], [place], [address], [facility], [facility] 4 11:27:04 Type 2 diabetes mellitus 89190873 Active [address], [place], [address], [facility]. 4 16:23:15 Coronary arterioscle rosis 88809714 Active 2023 [place] x 3, with stents Pacer AICD MD [address], [place], [address], [facility] 4 23:10:58 Essential hypertensio n 44313020 Active [address], [place], [address], [facility] 4 23:10:54 Chronic left-sided congestive heart failure 0422282 Active 2023 ICD. last echo 50% up from 35% post OH MD [address], [place], [address], [facility] 4 18:10:13 Malignant melanoma 555910754 Active 2016 left scalp MD [address], [place], [address], [facility] 4 14:10:50 Adult health examination Active [address], [place], [address], [facility] 4 11:43:13 Onychomycos is 351018900 Active 2023 toenails MD [address], [place], [address], [facility] 4 11:47:27 Neuropathy due to diabetes mellitus 153430826 Active [address], [place], [address], [facility] 4 16:23:51 Mixed anxiety and depressive disorder 854263266 Active [address], [place], [address], [facility] 4 16:27:39 Ambulatory continuous glucose monitoring of interstitia l tissue fluid Active [address], [place], [address] , [facility] 4 23:10:45 Hearing loss 52052719 Active [address], [place], [address], [facility] 4 23:11:04 Notes:Some problems listed i n Document: #[id number] could not be added to this patient's [...] by oral route as needed. active Per [facility] d/c 06/21/24 Not Available Not Available Not [...] 12 hours by oral route. active Per [facility] d/c 06/21/24 Not Available Not Available Not [...] ONCE DAILY AT BEDTIME active Stopped per [facility] 06/21/24 and decrease d to 30 units [...] Updated DateTime 4 167.64 cm 34.4 kg/m2 83536.1 7 g 97.5 [degF] 98 % 98 % 88 /min 124 mm[Hg] 78 mm[Hg] JENNIFER SORENSEN MA [facility] 4 11:13:30 Social History None recorded. Functional Status None recorded. Mental Status None recorded. Family History Nothing Reported. Medical History No medical history recorded. Immunizations Vaccine Type Date Status Note Provider Nam e and Address Organization Details Recorded Time COVID-19, mRNA, LNP-S, PF, jeferson-sucrose, 30 mcg/0.3 mL 4 completed MD [address], [place], [address], [facility] 08/30/2023 19:29:40 Tdap 4 completed MD [address], [place], [address], [facility] 12/01/2023 18:15:36 Influenza, high-dose, trivalent, PF 4 completed GUERO ANTHONY, [facility] 05/18/2024 11:35:26 COVID-19, mRNA, LNP-S, PF, jeferson-sucrose, 30 mcg/0.3 mL 4 completed GUERO ANTHONY, [facility] 05/18/2024 11:35:26 Pneumococcal conjugate PCV20, polysaccharide [id number] conjugate, adjuvant, PF 3 completed JENNIFER SORENSEN MA null, [facility] 08/12/2023 15:42:12 influenza, unspecified formulation 3 completed JENNIFER SORENSEN MA null, [facility] 08/26/2023 11:13:50 Past Encounters Encounter ID Performer Location Encounter Start Date Encounter Closed Date Diagnosis/Indication Diagnosis SNOMED-CT Code Diagnosis ICD10 Code Diagnosis Note [id number] MAURO SANTOS MD [address] [address] 06/24/2024 10:27:47 06/24/2024 11:47:01 Type 2 diabetes mellitus 80480115 E11.9 A1c 7.4%. Blood sugars been more variable since he is left the hospital, not entirely surprising . Continue monitoring closely, if continue to have recurrent issues he will let us know. I recommend a therapeuti c CGM is reasonable and necessary for my patient:1. The patient has diabetes;2 . The patient is insulin-tr eated with:- Multiple (three or more) daily administra tions of insulin;OR - A continuous subcutaneo us insulin infusion (CSII) pump;3. The patient's insulin treatment regimen requires frequent adjustment s by patient on the basis of BGM or CGM testing results;4. Within 6 months prior to ordering the CGM, the patient had an in-person visit with me, the treating practition er, to evaluate their diabetes control and determine that the above criteria (1-3) have been met;5. I plan to see patient every 6 months following initial prescripti on of the CGM to assess adherence to their CGM regimen & diabetes treatment plan Coronary arteriosclerosis 54404066 I25.10 Post CABG, appears to doing well. No anginal symptoms, nothing to suggest CHF. Follow-up with cardiothor nargis surgery as scheduled, he is under the understand ing that they will refer him to cardiac rehab at that time Essential hypertension 10082898 I10 No changes, recent labs up-to-date Health Concerns Section Related Observation LastModified by Organization Detai ls LastModified Time None Recorded Concern Status LastModified by Organization Details LastModified Time None Recorded Payers Encounter Date Sequence Insurance Name Policy Number Policy Suazo Covered Member ID Suazo Member ID Guarantor Name 06/24/2024 1 [facility] (MEDICARE REPLACEMENT/A DVANTAGE - PPO) [id number] Arturo Mehta [id number] Arturo Mehta Notes Date Note Type Note [...] using any topical antibiotics on the wounds. MD [address], [place], [address], [facility]. 06/29/2024 10:37:50
--- OUTSIDE RECORDS SUMMARY | 2024-08-09 11:00 | XMS_ITS | Encounter Summary ---
Author Organization [facility] Address [address] [place] [address] Care Team Providers Care Drill Presser Name Role Phone Jesu Guerra [facility] Primary Care Provider [phone] Encounter Details Date Type Department Care Team (Late st Contact Info) Description 10/31/2023 Lab Requisition [facility] Pathology & Laboratory Medicine - [facility] [address] [place] [address] Yousif Carlin PA [address] [place] [address] [address] [place] [phone] Melanocytic nevi, unspecified Social History Tobacco Use [...] management options, if applicable. 11/04/2023 9:43 EDT [facility] Final Diagnosis A. SKIN OF CHEEK, LEFT, SHAVE BIOPSY: - Seborrheic keratosis, pigmented. 11/04/2023 9:43 EDT [facility] Attestation By the signature below, the attending physician certifies that they have 1) personally conducted a gross and/or microscopic examination of the described specimen(s), and/or personally interpreted the results of laboratory testing of the described specimen(s), and 2) personally rendered or confirmed the above diagnosis. 11/04/2023 9:43 [facility] at 0943 Microscopic Description The [...] dermis and patchy lichenoid inflammation. 11/04/2023 9:43 [facility] Clinical History Atypical nevus, history melanoma; clinical diagnosis code: D22.9 11/04/2023 9:43 [facility] Gross Description A. Received in formalin labelled with proper patient identification (initials K, K) and L cheek is a 1.3 x 1.0 x 0.1 cm irregular shave of mottled rodriguez white to dark brown skin. The margin is inked. The specimen is trisected and entirely submitted in A1. HENOK GOLDEN(ASC) 11/03/2023 9:00 11/04/2023 9:43 [facility] Performing Lab [facility] 11/04/2023 9:43 [facility] Scanned Images 11/04/2023 9:43 T [facility] Tissue SPECIMEN FROM SKIN / Unknown 10/31/2023 14:10 EDT 10/31/2023 23:24 EDT us Yousif WHITING PATHOLOGY ORDERABLES Final Result [facility] [address] [place] [address] documented in this encounter Visit Diagnoses Diagnosis Melanocytic nevi, unspecified documented in this encounter Care Teams Drill Presser Relationship Specialty Start Date End Date Jesu Guerra, DNP [address] [place] [address] PCP - General Family Medicine - Primary Care 10/03/23 documented as of this encounter
--- OUTSIDE RECORDS SUMMARY | 2024-08-09 11:00 | XMS_ITS | Referral Summary ---
Author Organization [facility] Address [address] [place] [address] Care Team Providers Care Field Artillery Operations Specialist Name Role Phone Jesu Guerra [facility] Primary Care Provider [phone] Social History Tobacco Use Types Packs/Day Years Used Date Smoking Tobacco: Never Assessed Sex and Gender Information Value Date Recorded Sex Assigned at Not on file Legal Sex Male 23:22 EDT Gender Identity Not on file Sexual Orientation Not on file Plan of Treatment Not on file Insurance [employer] MEDICARE Care Teams Field Artillery Operations Specialist Relationship Specialty Start Date End Date Jesu Guerra, DNP [facility] [place] [address] PCP - General Family Medicine - Primary Care 10/03/23
--- OUTSIDE RECORDS SUMMARY | 2024-08-09 11:00 | XMS_ITS | Encounter Summary ---
Author Organization [facility] [place] [address] Care Team Providers Care Manager Lab Name Role Phone Mauro Berumen MD Primary Care Provider [phone] Reason for Visit * Auth/Cert Specialty Diagnoses / Procedures Referred By Carroll lopez Referred To Contact Diagnoses STEMI (ST elevation myocardial infarction) STEMI Procedures CARDIAC CATHETERIZATION EMERGENCY Delroy Monterroso MD [facility] [place] [address] [facility] Referral ID Status Reason Start Date Expiration Date Visits Re quested Visits Authorized [id number] 1 1 Encounter Details Date Type Department Care Team (Late st Contact Info) Description 06/02/2024 11:00 PM EDT - 06/03/2024 12:18 AM EDT [place] [address] Nuha Shen MD [facility] [place] [address] CARDIAC CATHETERIZATION Social History Tobacco Use Types Packs/Day Years Used Date Smoking Tobacco: Every Day Cigarettes Smokeless Tobacco: Never Tobacco Cessation:Ready to Q uit: No; Counseling Given: Yes [facility] Utilities Answer Date Recorded In the past 12 months has [employer], gas, oil, or water [employer] threatened to shut off services in your [...] time in the past 12 m [facility], were you homeless [...] Patient Age: 69 y.o. Birthdate: 1955 Language: Argentine Race: Choose not to Disclose Ethnicity: Not nor Admit Date: 06/02/2024 Discharge Date: 06/21/2024 Attending Physician: Bobby Loja MD Follow-up Recommendations for Providers: Please continue routine management of cardiovascular risk factors including blood pressure, lipids,glucose, etc. Please note any changes to medications. Patient to follow up with PCP, Mauro Berumen MD, in 1-2 weeks. Patient to follow up with Stud Sheep Farmer, Kristen Cardenas in 2-3 weeks. Patient to follow up with Cardiac Surgeon, Dr. Bobby Loja, in 4 wks. Inpatient Provider Contact Information: [facility] Section of Cardiac Surgery [facility] [address] FAX [phone] Discharge Diagnoses (Hospital Problems) Primary Diagnoses: STEMI [...] (WRVU 33.75) performed by Bobby Loja MD [facility] OR PRO CABG, ARTERY-VEIN, TWO N/A 06/14/2024 @CABG, TWO VENOUS GRAFTS & ARTERIAL GRAFT (WRVU 7.93) [facility] ENDOSCOPY W/VIDEO-ASST VEIN HARVEST, CABG N/A 06/14/2024 ENDOSCOPIC HARVEST VEIN(S) FOR CABG (WRVU 0.31) performed by Bobby Loja MD at [facility] MAIN OR PRO EXC MEDIASTINAL TUMOR N/A 06/14/2024 @EXCISION OF MEDIASTINAL TUMOR (WRVU 19.55) performed by Bobby Loja MD at [facility] OR PRO INSERT INTRA-AORTIC BALLOON ASST DEVICE PERCUTANEOUS N/A 06/13/2024 @INSERTION OF IABP,PERCUTANEOUS (WRVU 4.84) performed by Nuha Shen MD at [facility] CATH LABS PRO UNLISTED CARDIAC SURG PROCEDURE N/A 06/14/2024 EXPLORATION AND OVERSEW ATRIAL APPENDAGE (WRVU 5.94) performed by Bobby Loja MD at [facility] [place] Prior To Admission Medications Medications Prior [...] y.o. male with a PMHx of previous TX s/p PCI x3, ICM/HFrEF (LVEF 30%) s/p ICD, DMII, HTN, HLD, remote melanoma, and smoker who presented to [facility] last night via EMS after developing acute, severe chest pain while watching TV. Patient was ruled in for STEMI, given TNK, ASA, plavix, heparin gtt, and sent to [facility] for coronary angiography. LHC demonstrated severely calcified left coronary system with notable LCx 75/80% lesions and CHEMICAL ENGRAVER OM1 with ISR with collateral retrograde filling, [...] Hospital Course: George Mehta was admitted to [facility] on 06/02/2024 via the CardiologyService with an anterior STEMI after receiving lytics at OSH. He was brought to the laborer cement gun placing which showed severely calcified left coronary system with notable LCx 75/80% lesions and CHEMICAL ENGRAVER OM1 with ISR with collateral retrograde filling, [...] juice or regular (not diet) soda 6 [employer] small box of raisins 4 glucose tablets [...] 2 tablespoons of dried fruit. Milk and cm-accga-txigf yogurt have 15 grams of carbs in a serving. A serving is 1 cup of milk or 3/4 cup (6 oz) of ra-jvsqu-mcshr yogurt. Starchy vegetables have 15 grams of carbs in a serving. A serving is ?? cup of mashed potatoes or sweet potato; 1 cup winter squash; ?? of a small baked potato; ?? cup of cooked beans; or ?? cup cooked corn or green peas. Learn how much carbs to eat each day and at each meal. A dietitian or certified pesticide applicator can teach you how to keep track [...] Bobby Loja and/or the Cardiac Surgery Physician Skimmer Scoop Operator Team may be reached at . [...] Dr. Bobby Loja. You may use a [place] Track or treadmill but avoid any pulling [...] friends, go to a movie, go to islam, etc. Heavy activities: No hunting, skiing, jogging, snow shoveling, snowmobiling, lawn mowing, swimming,golf or tennis until after your return appointment with the surgeon. Do not ride motorcycles, ATBizmore'stractors or horses. Avoid the use of a [...] should resume a low fat, low cholesterol, [place] Heart Association Diet/Diabetic diet. Driving: No driving [...] while being managed by your PCP and/or Stud Sheep Farmer. For future medication refills, please refer to your PCP and/or Stud Sheep Farmer after your discharge from our service. Thank you REMOVE CHEST TUBE SUTURES ON OR AFTER 06/24/2024 Home oxygen therapy: N/A Follow up appointments: You should follow up with your PCP, Mauro Berumen MD, in 1-2 weeks. You should follow up with your Stud Sheep Farmer, Dr CARDENAS. You have an appointment with your Cardiac Surgeon, Dr. Bobby Loja, in 4 wks. Cardiac Rehabilitation: George Mehta was seen today regarding participation in the outpatient Phase 2 Cardiac Rehabilitation at [facility]. The patient agrees to a referral to this program. The referral will be sent at discharge and the patient should be contacted by the program within 1-2 weeks from discharge. Future Appointments and Orders Future Orders Complete By Expires Referral to Cardiac Rehab [[id number] Custom] As directed Process Instructions: If no progress note charted, please enter Clinical details in comments. Scheduling Instructions: Questions: My question or request is: s/p CABG- cardiac rehab at [facility] Referral to Home Health [[id number] Custom] As directed Process Instructions: If no progress note charted, please enter Clinical details in comments. Scheduling Instructions: Comments: Please evaluate George Mehta for admission to Home Health. [address] [facility] [address] (home) Date of : 1955 Inpatient DOCUMENTATION FOR VNA SERVICES (INCLUDING THOSE PATIENTS WITH MEDICARE COVERAGE REQUIRINGHOME VNA SERVICES AND/OR HOSPICE SERVICES) PATIENT'S LOCATION: George Mehta [address] [place] [address] [address] [facility] [address] (home) Telephone Information: Automatic Log Cut Off Sawyer's Name: self In discussion with the attending physician, it is certified that this patient is under their care and that they, or a Nurse Practitioner, or Physician Skimmer Scoop Operator who is working directly with them, [...] for services as follows: HOME HEALTH AGENCY: [facility] [address] [place] [id number] RN orders: Cardiopulmonary assessment, incisional assessment, assess [...] issues please call the Cardiology Office at [phone] FOR MEDICARE ONLY: (please delete this section [...] care: As above. Signed: KEILA HANLEY APRN [facility] Section of Cardiac Surgery [facility] [address] FAX [phone] Date: 06/21/2024 CC: MD Antonino Tinajero Joshua R, PA [address] [place] [address] [place] [address] documented in this encounter Discharge Instructions * [...] 2 tablespoons of dried fruit. Milk and fi-jqdcx-wyqsk yogurt have 15 grams of carbs in a serving. A serving is 1 cup of milk or 3/4 cup (6 oz) of qp-egwwl-vagsa yogurt. Starchy vegetables have 15 grams of carbs in a serving. A serving is ?? cup of mashed potatoes or sweet potato; 1 cup winter squash; ?? of a small baked potato; ?? cup of cooked beans; or ?? cup cooked corn or green peas. Learn how much carbs to eat each day and at each meal. A dietitian or certified pesticide applicator can teach you how to keep track [...] Bobby Loja and/or the Cardiac Surgery Physician Skimmer Scoop Operator Team may be reached at . [...] Dr. Bobby Loja. You may use a [place] Track or treadmill but avoid any pulling [...] friends, go to a movie, go to islam, etc. Heavy activities: No hunting, skiing, jogging, snow shoveling, snowmobiling, lawn mowing, swimming,golf or tennis until after your return appointment with the surgeon. Do not ride motorcycles, ATBizmore'stractors or horses. Avoid the use of a [...] should resume a low fat, low cholesterol, [place] Heart Association Diet/Diabetic diet. Driving: No driving [...] while being managed by your PCP and/or Stud Sheep Farmer. For future medication refills, please refer to your PCP and/or Stud Sheep Farmer after your discharge from our service. Thank you REMOVE CHEST TUBE SUTURES ON OR AFTER 06/24/2024 Home oxygen therapy: N/A Follow up appointments: You should follow up with your PCP, Mauro Berumen MD, in 1-2 weeks. You should follow up with your Stud Sheep Farmer, Dr CARDENAS. You have an appointment with your Cardiac Surgeon, Dr. Bobby Loja, in 4 wks. Cardiac Rehabilitation: George Mehta was seen today regarding participation in the outpatient Phase 2 Cardiac Rehabilitation at [facility]. The patient agrees to a referral to [...] MARIALUISA clipping. PMH of chronic HFrEF s/p COTTON GINNER HELPER/ICD, IDDM2, HTN, HLD, remote melanoma, active smoker. [...] juice or regular (not diet) soda 6 [employer] small box of raisins 4 glucose tablets [...] 2 tablespoons of dried fruit. Milk and qg-yvxmo-hhbmo yogurt have 15 grams of carbs in a serving. A serving is 1 cup of milk or 3/4 cup (6 oz) of sm-wuexu-ilqzm yogurt. Starchy vegetables have 15 grams of carbs in a serving. A serving is ?? cup of mashed potatoes or sweet potato; 1 cup winter squash; ?? of a small baked potato; ?? cup of cooked beans; or ?? cup cooked corn or green peas. Learn how much carbs to eat each day and at each meal. A dietitian or certified pesticide applicator can teach you how to keep track [...] cheese, and peanut butter. Alejandra Baumann APRN [facility] Endocrinology Diabetes Management Pager [phone] Weekends please page [phone] * Eric Packer PA - 06/20/2024 7:44 AM EST Cardiac Surgery Progress Note George Mehta is a 69 y.o. male with a history of CAD s/p multiple PCI who presented with an anterior STEMI and was given lytics. Cath showed MV CAD without culprit vessel. He is now 6 Days Post-OpCABGx3 and MARIALUISA clipping. PMH of chronic HFrEF s/p COTTON GINNER HELPER/ICD, IDDM2, HTN, HLD, remote melanoma, active smoker. 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 06/20/2024 Between the hours of 1800 - 0600 and on the weekends please page [phone]. * Alejandra Baumann, JOSÉ ANTONIO - 06/20/2024 7:21 AM EST Follow Up Diabetes Consult Patient Interview Blood glucose values and insulin use reviewed. porcelain finisher BG to 59 despite decrease in glargine [...] MARIALUISA clipping. PMH of chronic HFrEF s/p COTTON GINNER HELPER/ICD, IDDM2, HTN, HLD, remote melanoma, active smoker. 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 Milk and az-qbkrh-haitr yogurt have 15 grams of carbs in a serving. A serving is 1 cup of milk or 3/4 cup (6 oz) of tp-cpkkj-yywqu yogurt. Starchy vegetables have 15 grams of carbs in a serving. A serving is ?? cup of mashed potatoes or sweet potato; 1 cup winter squash; ?? of a small baked potato; ?? cup of cooked beans; or ?? cup cooked corn or green peas. Learn how much carbs to eat each day and at each meal. A dietitian or certified pesticide applicator can teach you how to keep track [...] MARIALUISA clipping. PMH of chronic HFrEF s/p COTTON GINNER HELPER/ICD, IDDM2, HTN, HLD, remote melanoma, active smoker. 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 Jeffy Hood MD 06/19/2024 Between the hours of 1800 - 0600 and on the weekends please page [phone]. * Alejandra Baumann, STEAM TABLE ASSOCIATE - 06/19/2024 7:09 AM EST Follow Up Diabetes Consult Patient Interview Blood glucose values and insulin use reviewed. Jardiance added back yesterday, machine wedger low BGto 51. Glargine reduced to 45 [...] MARIALUISA clipping. PMH of chronic HFrEF s/p COTTON GINNER HELPER/ICD, IDDM2, HTN, HLD, remote melanoma, active smoker. Jardiance added back yesterday. porcelain finisher low BG to 51. Glargine reduced to [...] 2 tablespoons of dried fruit. Milk and df-kvhgu-vpeex yogurt have 15 grams of carbs in a serving. A serving is 1 cup of milk or 3/4 cup (6 oz) of cf-fqrgt-kfegt yogurt. Starchy vegetables have 15 grams of carbs in a serving. A serving is ?? cup of mashed potatoes or sweet potato; 1 cup winter squash; ?? of a small baked potato; ?? cup of cooked beans; or ?? cup cooked corn or green peas. Learn how much carbs to eat each day and at each meal. A dietitian or certified pesticide applicator can teach you how to keep track [...] cheese, and peanut butter. Alejandra Baumann APRN [facility] Endocrinology Diabetes Management Pager [phone] Weekends please page [phone] EL * Hilda Resendez PTA - 06/18/2024 9:19 AM EST Physical Therapy Note 2 Patient profile: George Mehta is a 69 y.o. male with a history of CAD s/p multiple PCI who presented with an anterior STEMI and was given lytics. Cath showed MV CAD without culprit vessel. He is now 1 Day Post-Op CABGx3 and MARIALUISA clipping. PMH of chronic HFrEF s/p COTTON GINNER HELPER/ICD, IDDM2, HTN, HLD, remote melanoma, active smoker. Interval History: Per last cardiac surgery note on 06/18/2024 Cr improved 1.4 on lasix 40 iv bid -1.5L, made 2.5L urine Coreg, entresto restarted Floor status Social History: Pt lives with his in a 1 level apartment with no steps to enter. 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 He drives. He sleeps in a recliner at baseline. Precautions/Special Considerations: Sternal precautions, PIV, at risk to fall, PPM Mobility and Positioning Recommendations: Pt to utilize no AD, supervision for ambulation and transfers w/ staff editor as able. Please encourage up to chair [...] least restrictive device Time IN / OUT: 8634-3173 Total Time: 11 minutes; TEF 1 Hilda Resendez PTA Pager: [phone] Physical Therapy Inpatient Rehabilitation Department * Keila Hanley, STEAM TABLE ASSOCIATE - 06/18/2024 8:48 AM EST Cardiac Surgery Progress Note George Mehta is a 69 y.o. male with a history of CAD s/p multiple PCI who presented with an anterior STEMI and was given lytics. Cath showed MV CAD without culprit vessel. He is now 4 Days Post-OpCABGx3 and MARIALUISA clipping. PMH of chronic HFrEF s/p COTTON GINNER HELPER/ICD, IDDM2, HTN, HLD, remote melanoma, active smoker. 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 Restarting jardiance #Active smoker Duoneb prn Dispo: CVCC, Full code, tx to floor Discussed with attending surgeon on rounds this morning. KEILA HANLEY, STEAM TABLE ASSOCIATE 06/18/2024 Between the hours of 1800 - 0600 and on the weekends please page [phone]. * Alejandra Baumann, STEAM TABLE ASSOCIATE - 06/17/2024 3:29 PM EST Follow Up [...] MARIALUISA clipping. PMH of chronic HFrEF s/p COTTON GINNER HELPER/ICD, IDDM2, HTN, HLD, remote melanoma, active smoker. [...] based on ISF 20 Alejandra Baumann APRN [facility] Endocrinology Diabetes Management Pager [phone] Weekends please page [phone] 35 minutes were spent over the course [...] MARIALUISA clipping. PMH of chronic HFrEF s/p COTTON GINNER HELPER/ICD, IDDM2, HTN, HLD, remote melanoma, active smoker. [...] 0600 and on the weekends please page [phone]. * Raymond Carlton MD - 06/16/2024 1:11 PM EST CARDIAC CRITICAL CARE ATTENDING STAFF PROGRESS NOTE Patient seen and examined. George Mehta is a 69 y.o. male with: Active Hospital Problems Diagnosis STEMI (ST elevation myocardial infarction) Cardiac resynchronization therapy defibrillator (COTTON GINNER HELPER-D) - Medtronic Amplia Cardiomyopathy, ischemic Acute on chronic heart failure with reduced ejection fraction (HFrEF, <= 40%) Coronary artery disease involving [place] coronary artery of [place] heart without angina pectoris Type 2 diabetes [...] encouragement provided Patient screened for f/u and scenario writer met pt at bedside. Pt states [...] unless consulted in the interim. RICHA Simmons Lead Neurodiagnostic Technologist * Octaviano Horvath PA - 06/16/2024 8:07 AM EST Cardiac Surgery Progress Note George Mehta is a 69 y.o. male with a history of CAD s/p multiple PCI who presented with an anterior STEMI and was given lytics. Cath showed MV CAD without culprit vessel. He is now 2 Days Post-OpCABGx3 and MARIALUISA clipping. PMH of chronic HFrEF s/p COTTON GINNER HELPER/ICD, IDDM2, HTN, HLD, remote melanoma, active smoker. [...] 0600 and on the weekends please page [phone]. * Jono Fernandez, PT - 06/15/2024 4:09 PM EST Physical Therapy Evaluation Patient profile: George Mehat is a 69 y.o. male with a history of CAD s/p multiple PCI who presented with an anterior STEMI and was given lytics. Cath showed MV CAD without culprit vessel. He is now 1 Day Post-Op CABGx3 and MARIALUISA clipping. PMH of chronic HFrEF s/p COTTON GINNER HELPER/ICD, IDDM2, HTN, HLD, remote melanoma, active smoker. 24h Events: From OR on Dobutamine IABP removed Bedrest ended ~2100, sedation weaned Extubated ~0200 Dobutamine weaned to 1 this morning, CI 2.6, shut off and repeat CI 2.4 Social History: Pt lives with his in a 1 level apartment with no steps to enter. 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 He drives. He sleeps [...] outlined inthis evaluation. JONO FERNANDEZ, PT Pager: [phone] Physical Therapy Inpatient Rehabilitation Department Time IN / OUT: 7230-0579 Total Time: 33 (eval) minutes * Alejandra Baumann APRN - 06/15/2024 11:39 AM EST Follow Up Diabetes Consult Patient Interview Blood glucose values and insulin use reviewed. Pt remains on an insulin drip today following [id number] MARIALUISA clipping. George continues to complain of [...] MARIALUISA clipping. PMH of chronic HFrEF s/p COTTON GINNER HELPER/ICD, IDDM2, HTN, HLD, remote melanoma, active smoker. [...] based on ISF 20 Alejandra Baumann APRN [facility] Endocrinology Diabetes Management Pager [phone] Weekends please page [phone] 50 minutes were spent over the course [...] elevation myocardial infarction) Cardiac resynchronization therapy defibrillator (COTTON GINNER HELPER-D) - Medtronic Amplia Cardiomyopathy, ischemic Acute on chronic heart failure with reduced ejection fraction (HFrEF, <= 40%) Coronary artery disease involving [place] coronary artery of [place] heart without angina pectoris Type 2 diabetes [...] with h/o DM, CAD with prior PCI, COTTON GINNER HELPER-D who presented with crushing chest pain, found [...] MARIALUISA clipping. PMH of chronic HFrEF s/p COTTON GINNER HELPER/ICD, IDDM2, HTN, HLD, remote melanoma, active smoker. [...] 0600 and on the weekends please page [phone]. * Yoli Donaldson, [facility] - 06/15/2024 5:35 AM EST AMV Protocol: [...] with h/o DM, CAD with prior PCI, COTTON GINNER HELPER-D who presented with crushing chest pain, found [...] with h/o DM, CAD with prior PCI, COTTON GINNER HELPER-D who presented with crushing chest pain, found [...] 0600 and on the weekends please page [phone]. * Chloé Cortez - 06/14/2024 9:36 AM [...] unless consulted in the interim. Chloé Cortez [employer] Flatbed Driver * Jim Benites MD - 06/13/2024 1:15 [...] - Mildly dilated left ventricle size with hedbpijc-oy-zljdpdbf decreased LV systolic function. LV ejection fraction [...] ACS/crushing chest pain, likely due to lateral TX, found to have surgical CAD with viability [...] elevation myocardial infarction) Cardiac resynchronization therapy defibrillator (COTTON GINNER HELPER-D) - Medtronic Amplia Cardiomyopathy, ischemic Acute on chronic heart failure with reduced ejection fraction (HFrEF, <= 40%) Coronary artery disease involving [place] coronary artery of [place] heart without angina pectoris Type 2 diabetes [...] PCP: Mauro Berumen MD PCP phone number: [phone] Date of Admission: 06/02/2024 ( Hospital Day 10 days ) Attending:Ethel Carrillo MD ID: 69 y.o. male with a h/o DM type 2, HTN, HLD, current smoker (2-3 cigarettes/day), HFrEF with anICD for low EF (~30%), and CAD with prior TX x3 with JENNA placed in [place], Melanoma, PAD, presented to [facility] with 1 hour of retrosternal CP (05/13) while watching TV, found to have STEMI. Active Problems: Active Hospital Problems Diagnosis STEMI (ST elevation myocardial infarction) Cardiac resynchronization therapy defibrillator (COTTON GINNER HELPER-D) - Medtronic Amplia Cardiomyopathy, ischemic Acute on chronic heart failure with reduced ejection fraction (HFrEF, <= 40%) Coronary artery disease involving [place] coronary artery of [place] heart without angina pectoris Type 2 diabetes [...] in the last 7068 hours. Invalid input(s): [id number] Recent Labs 06/12/24 0425 06/11/24 2356 06/11/24 2025 06/11/24 1624 06/11/24 1108 06/11/24 0748 06/11/24 0357 06/11/24 0050 06/10/24 1922 06/10/24 1735 06/10/24 1125 06/10/24 0746 POCGLU 132 135 210* 81 233* 184 132 144 236* 123 216* 206* Heme No results for input(s): LDH, HAPTOGLOBIN, URICACID in the last 168 hours. ABG (Arterial Blood Gas) No results found for: PHART, PO2ART, AQB1FBF, RCF1SPF Microbiology: Microbiology Results (Last 30 days) No results found for the last 720 hours. Imaging: Results for orders placed or performed during the hospital encounter of 06/02/24 XR Chest One View (Exam End: 06/03/2024 2:41 AM) Result Value WORKSTATION ID [id number] Impression No radiographically evident acute cardiopulmonary process. Thank you for letting us participate in the care of this patient. If you are a health care provider and have any questions regarding this report, please contact the number below. For patients who have questions please contact the health direct support professional caregiver that requested your imaging first. Electronically signed by: Corazon Mauro MD, [facility] ([phone]), at 06/03/2024 3:06 AM MRI Cardiac Morphology Function wwo Contrast (Exam End: 06/07/2024 1:10 PM) Result Value WORKSTATION ID [id number] Impression - Findings consistent with an ischemic [...] - Mildly dilated left ventricle size with cjmaxpzi-yn-hcejyqst decreased LV systolic function. LV ejection fraction [...] who have questions please contact the health direct support professional caregiver that requested your imaging first. Electronically signed by: Kriss Alonzo MD, [facility] ([phone]), at 06/07/2024 2:[address] Chest wo Contrast (Generic) (Exam End: 06/03/2024 4:33 PM) Result Value WORKSTATION ID [id number] Impression Cardiomegaly. Biventricular ICD leads in place. Thank you for letting us participate in the care of this patient. If you are a health care provider and have any questions regarding this report, please contact the number below. For patients who have questions please contact the health direct support professional caregiver that requested your imaging first. Electronically signed by: Stuart Aponte MD, [facility] ([phone]), at 06/03/2024 4:47 PM XR Chest PA & Lateral (Generic) (Exam End: 06/07/2024 7:03 AM) Result Value WORKSTATION ID [id number] Impression Biventricular ICD leads intact and in stable position I have personally reviewed the image(s) and the resident's interpretation and agree with the findings, Stuart Apotne MD at 06/07/2024 10:45 AM Thank you for letting us participate in the care of this patient. If you are a health care provider and have any questions regarding this report, please contact the number below. For patients who have questions please contact the health direct support professional caregiver that requested your imaging first. Electronically signed by: Stuart Aponte MD, [facility] ([phone]), at 06/07/2024 10:45 AM TTE: Limited echo performed by fellow flight reservations manager to assess LV function. Left ventricle is [...] ischemic cardiomyopathy with HFrEF (~30% EF), prior TX with stents, DM type 2, HTN, HLD, active smoker, presented with anterior STEMI. Angiography revealed severe multivessel CAD with extensive calcification and YUE 3 flow in all vessels, without a clear culprit lesion. Currently pain-free after TNK, Plavix, ASA, and heparin, with mildly elevated LVEDP at 40 mmHg and mild volume overload. 06/12/24: Patient stable, asymptomatic. Plan to go to laborer cement gun placing for balloon pump tomorrow, then willgo to [facility] prior to CABG on Friday. #ASCVD / STEMI: -Holding Plavix; continue ASA and heparin gtt. -Monitor telmetry -TTE -Viability planning per CT surgery - CT chest (complete) - Carotid duplex bilat (complete) - Cardiac MR (scheduled today Thursday 06/07) - Will need balloon pump prior to CABG on Friday, likely Friday then transfer to [facility] #HFrEF (Ischemic Cardiomyopathy): -Monitor I&O and daily [...] CODE Dain Colón MD Cardiology, M1-S2, Pager #[phone] 06/12/24 Associated attestation - Ethel Carrillo MD [...] midnights or is on the [facility] inpatient only procedure list (status C) due to: acute myocardial infarction requiring titration of IV medication and fluid monitoring and decompensated congestive heart failure requiring IV medication and fluid monitoring Ethel Carrillo MD Cardiovascular Medicine Personal Pager [phone] 06/12/2024 9:12 PM * Alejandra Baumann, STEAM TABLE ASSOCIATE - 06/11/2024 4:21 PM EST Images from [...] too aggressive, suggest ICR 1:6 (rule of [id number] = 6.25). George is up and walking [...] ischemic cardiomyopathy with HFrEF (~30% EF), prior TX with stents, DM type 2, HTN, HLD, [...] on placing this weekend and transfer to [facility], likely Friday. With lower BG following meal [...] ac, metformin 1000mg BID Alejandra Baumann APRN [facility] Endocrinology Diabetes Management Pager [phone] Weekends please page [phone] 35 minutes were spent over the course [...] PCP: Mauro Berumen MD PCP phone number: [phone] Date of Admission: 06/02/2024 ( Hospital Day 9 days ) Attending:Melida Valdes MD ID: 69 y.o. male with a h/o DM type 2, HTN, HLD, current smoker (2-3 cigarettes/day), HFrEF with anICD for low EF (~30%), and CAD with prior [place] x3 with JENNA placed in [place], Melanoma, PAD, presented to [facility] with 1 hour of retrosternal CP (05/13) while watching TV, found to have STEMI. Active Problems: Active Hospital Problems Diagnosis STEMI (ST elevation myocardial infarction) Cardiac resynchronization therapy defibrillator (COTTON GINNER HELPER-D) - Medtronic Amplia Cardiomyopathy, ischemic Acute on chronic heart failure with reduced ejection fraction (HFrEF, <= 40%) Coronary artery disease involving [place] coronary artery of [place] heart without angina pectoris Type 2 diabetes [...] in the last 7068 hours. Invalid input(s): [id number] Recent Labs 06/11/24 0357 06/11/24 0050 06/10/24 1922 06/10/24 1735 06/10/24 1125 06/10/24 0746 06/10/24 0423 06/10/24 0005 06/09/24 2036 06/09/24 1727 06/09/24 1152 06/09/24 0810 POCGLU 132 144 236* 123 216* 206* 154 125 197 174 211* 209* Heme No results for input(s): LDH, HAPTOGLOBIN, URICACID in the last 168 hours. ABG (Arterial Blood Gas) No results found for: PHART, PO2ART, CQZ8JWU, GZE2QFJ Microbiology: Microbiology Results (Last 30 days) No results found for the last 720 hours. Imaging: Results for orders placed or performed during the hospital encounter of 06/02/24 XR Chest One View (Exam End: 06/03/2024 2:41 AM) Result Value WORKSTATION ID [id number] Impression No radiographically evident acute cardiopulmonary process. Thank you for letting us participate in the care of this patient. If you are a health care provider and have any questions regarding this report, please contact the number below. For patients who have questions please contact the health direct support professional caregiver that requested your imaging first. Electronically signed by: Corazon Mauro MD, [facility] ([phone]), at 06/03/2024 3:06 AM MRI Cardiac Morphology Function wwo Contrast (Exam End: 06/07/2024 1:10 PM) Result Value WORKSTATION ID [id number] Impression - Findings consistent with an ischemic [...] - Mildly dilated left ventricle size with eljuhaes-db-gdoeyhnx decreased LV systolic function. LV ejection fraction [...] who have questions please contact the health direct support professional caregiver that requested your imaging first. Electronically signed by: Kriss Alonzo MD, [facility] ([phone]), at 06/07/2024 2:[address] Chest wo Contrast (Generic) (Exam End: 06/03/2024 4:33 PM) Result Value WORKSTATION ID [id number] Impression Cardiomegaly. Biventricular ICD leads in place. Thank you for letting us participate in the care of this patient. If you are a health care provider and have any questions regarding this report, please contact the number below. For patients who have questions please contact the health direct support professional caregiver that requested your imaging first. Electronically signed by: Stuart Aponte MD, [facility] ([phone]), at 06/03/2024 4:47 PM XR Chest PA & Lateral (Generic) (Exam End: 06/07/2024 7:03 AM) Result Value WORKSTATION ID [id number] Impression Biventricular ICD leads intact and in [...] who have questions please contact the health direct support professional caregiver that requested your imaging first. Electronically signed by: Stuart Aponte MD, [facility] ([phone]), at 06/07/2024 10:45 AM TTE: Limited echo performed by fellow flight reservations manager to assess LV function. Left ventricle is [...] Continuous Infusions: heparin (porcine) infusion 1,400 Units/hr (06/10/248) PRN Meds:.insulin lispro, glucose 40% oral geL [...] ischemic cardiomyopathy with HFrEF (~30% EF), prior TX with stents, DM type 2, HTN, HLD, [...] CODE Dain Colón MD Cardiology, M1-S2, Pager #[phone] 06/11/24 Associated attestation - Ethel Carrillo MD [...] midnights or is on the [facility] inpatient only procedure list (status C) due to: acute myocardial infarction requiring titration of IV medication and fluid monitoring and decompensated congestive heart failure requiring IV medication and fluid monitoring Ethel Carrillo MD Cardiovascular Medicine Personal Pager [phone] 06/11/2024 9:35 PM * Hilary Belle - 06/10/2024 12:39 PM EST Nutrition Services Note George Mehta is a 69 y.o. male Reason for intervention: hospital day 9 Nutrition Plan: Continue diet order: 60/60/75 CHO Level 2 Encourage good PO Lasix and Insulin noted Monitor weight Patient scheduled for a hospital day 9 nutrition evaluation. Senior Site Manager attempted to meet with pt at bedside [...] unless consulted in the interim. Hilary Belle Lead Neurodiagnostic Technologist * Mariia Montero RN - 06/10/2024 12:23 PM EST I have met with the patient to: discuss discharge planning needs. provide the [facility], Office of Care Management letter from the Drinking Water Technician pertaining to rehab referrals. provide a letter describing our affiliations within the [facility] and educate about their right to choose where referrals are sent. provide a list of Home Health Agencies / Durable Medical Equipment vendors which serve their preferred geographic area. provided patient with [facility] Star Quality Rating handout. They have requested referrals to: [facility]. [address] [place] [address] RN / PT Anticipated d/c date: 06/20/24 Note routed to a Supervisor Ornamental Ironworking who will communicate referrals to facilities and provide any required information. * Dain Colón MD - 06/10/2024 7:17 AM EST Images from the original note were not included. . Cardiology Progress Note Patient info: Name: George Mehta : 1955 PCP: Mauro Berumen MD PCP phone number: [phone] Date of Admission: 06/02/2024 ( Hospital Day 8 days ) Attending:Melida Valdes MD ID: 69 y.o. male with a h/o DM type 2, HTN, HLD, current smoker (2-3 cigarettes/day), HFrEF with anICD for low EF (~30%), and CAD with prior [place] x3 with JENNA placed in [place], Melanoma, PAD, presented to [facility] with 1 hour of retrosternal CP (05/13) while watching TV, found to have STEMI. Active Problems: Active Hospital Problems Diagnosis STEMI (ST elevation myocardial infarction) Cardiac resynchronization therapy defibrillator (COTTON GINNER HELPER-D) - Medtronic Amplia Cardiomyopathy, ischemic Acute on chronic heart failure with reduced ejection fraction (HFrEF, <= 40%) Coronary artery disease involving [place] coronary artery of [place] heart without angina pectoris Type 2 diabetes [...] in the last 7068 hours. Invalid input(s): [id number] Recent Labs 06/10/24 0423 06/10/24 0005 06/09/24 2036 06/09/24 1727 06/09/24 1152 06/09/24 0810 06/09/24 0440 06/09/24 0034 06/08/24 2027 06/08/24 1616 06/08/24 1235 06/08/24 0810 POCGLU 154 125 197 174 211* 209* 131 186 176 159 226* 190 Heme No results for input(s): LDH, HAPTOGLOBIN, URICACID in the last 168 hours. ABG (Arterial Blood Gas) No results found for: PHART, PO2ART, PFV6VJP, LLF6IWH Microbiology: Microbiology Results (Last 30 days) No results found for the last 720 hours. Imaging: Results for orders placed or performed during the hospital encounter of 06/02/24 XR Chest One View (Exam End: 06/03/2024 2:41 AM) Result Value WORKSTATION ID [id number] Impression No radiographically evident acute cardiopulmonary process. Thank you for letting us participate in the care of this patient. If you are a health care provider and have any questions regarding this report, please contact the number below. For patients who have questions please contact the health direct support professional caregiver that requested your imaging first. Electronically signed by: Corazon Mauro MD, [facility] ([phone]), at 06/03/2024 3:06 AM MRI Cardiac Morphology Function wwo Contrast (Exam End: 06/07/2024 1:10 PM) Result Value WORKSTATION ID [id number] Impression - Findings consistent with an ischemic [...] - Mildly dilated left ventricle size with udsqwhmo-ra-nmmjzpfx decreased LV systolic function. LV ejection fraction [...] who have questions please contact the health direct support professional caregiver that requested your imaging first. Electronically signed by: Kriss Alonzo MD, [facility] ([phone]), at 06/07/2024 2:[address] Chest wo Contrast (Generic) (Exam End: 06/03/2024 4:33 PM) Result Value WORKSTATION ID [id number] Impression Cardiomegaly. Biventricular ICD leads in place. Thank you for letting us participate in the care of this patient. If you are a health care provider and have any questions regarding this report, please contact the number below. For patients who have questions please contact the health direct support professional caregiver that requested your imaging first. Electronically signed by: Stuart Aponte MD, [facility] ([phone]), at 06/03/2024 4:47 PM XR Chest PA & Lateral (Generic) (Exam End: 06/07/2024 7:03 AM) Result Value WORKSTATION ID [id number] Impression Biventricular ICD leads intact and in [...] who have questions please contact the health direct support professional caregiver that requested your imaging first. Electronically signed by: Stuart Aponte MD, [facility] ([phone]), at 06/07/2024 10:45 AM TTE: Limited echo performed by fellow flight reservations manager to assess LV function. Left ventricle is [...] ischemic cardiomyopathy with HFrEF (~30% EF), prior TX with stents, DM type 2, HTN, HLD, [...] plan on placing this and transfer to [facility], likely Friday. #ASCVD / STEMI: -Holding Plavix; [...] of days: 7 Code status: FULL CODE Dian Colón MD Cardiology, M1-S2, Pager #[phone] 06/10/24 Associated attestation - Melida Valdes MD [...] a lytic and brought directly to the Telecommunicator. Cardiac catheterization demonstrated multivessel disease with severe [...] who is agreeable Melida Valdes MD Staff Stud Sheep Farmer * Cherelle Fregoso, JOSÉ ANTONIO - 06/09/2024 [...] ischemic cardiomyopathy with HFrEF (~30% EF), prior TX with stents, DM type 2, HTN, HLD, [...] PCP: Mauro Berumen MD PCP phone number: [phone] Date of Admission: 06/02/2024 ( Hospital Day 7 days ) Attending:Melida Valdes MD ID: 69 y.o. male with a h/o DM type 2, HTN, HLD, current smoker (2-3 cigarettes/day), HFrEF with anICD for low EF (~30%), and CAD with prior [place] x3 with JENNA placed in [place], Melanoma, PAD, presented to [facility] with 1 hour of retrosternal CP (05/13) while watching TV, found to have STEMI. Active Problems: Active Hospital Problems Diagnosis STEMI (ST elevation myocardial infarction) Acute on chronic heart failure with reduced ejection fraction (HFrEF, <= 40%) Coronary artery disease involving [place] coronary artery of [place] heart without angina pectoris Type 2 diabetes [...] in the last 7068 hours. Invalid input(s): [id number] Recent Labs 06/09/24 0440 06/09/24 0034 06/08/24 2027 06/08/24 1616 06/08/24 1235 06/08/24 0810 06/08/24 0409 06/07/24 2357 06/07/24 2005 06/07/24 1631 06/07/24 1105 06/07/24 1103 POCGLU 131 186 176 159 226* 190 151 188 118 174 221* 250* Heme No results for input(s): LDH, HAPTOGLOBIN, URICACID in the last 168 hours. ABG (Arterial Blood Gas) No results found for: PHART, PO2ART, YSN5MNP, OTR0WPJ Microbiology: Microbiology Results (Last 30 days) No results found for the last 720 hours. Imaging: Results for orders placed or performed during the hospital encounter of 06/02/24 XR Chest One View (Exam End: 06/03/2024 2:41 AM) Result Value WORKSTATION ID [id number] Impression No radiographically evident acute cardiopulmonary process. Thank you for letting us participate in the care of this patient. If you are a health care provider and have any questions regarding this report, please contact the number below. For patients who have questions please contact the health direct support professional caregiver that requested your imaging first. Electronically signed by: Corazon Mauro MD, [facility] ([phone]), at 06/03/2024 3:06 AM MRI Cardiac Morphology Function wwo Contrast (Exam End: 06/07/2024 1:10 PM) Result Value WORKSTATION ID [id number] Impression - Findings consistent with an ischemic [...] - Mildly dilated left ventricle size with mfhxppjh-er-iucigvzf decreased LV systolic function. LV ejection fraction [...] who have questions please contact the health direct support professional caregiver that requested your imaging first. Electronically signed by: Kriss Alonzo MD, [facility] ([phone]), at 06/07/2024 2:[address] Chest wo Contrast (Generic) (Exam End: 06/03/2024 4:33 PM) Result Value WORKSTATION ID [id number] Impression Cardiomegaly. Biventricular ICD leads in place. Thank you for letting us participate in the care of this patient. If you are a health care provider and have any questions regarding this report, please contact the number below. For patients who have questions please contact the health direct support professional caregiver that requested your imaging first. Electronically signed by: Stuart Aponte MD, [facility] ([phone]), at 06/03/2024 4:47 PM XR Chest PA & Lateral (Generic) (Exam End: 06/07/2024 7:03 AM) Result Value WORKSTATION ID [id number] Impression Biventricular ICD leads intact and in [...] who have questions please contact the health direct support professional caregiver that requested your imaging first. Electronically signed by: Stuart Aponte MD, [facility] ([phone]), at 06/07/2024 10:45 AM TTE: Limited echo performed by fellow flight reservations manager to assess LV function. Left ventricle is [...] Infusions: heparin (porcine) infusion 1,400 Units/hr (06/08/24 5078) PRN Meds:.glucose 40% oral geL OR dextrose [...] ischemic cardiomyopathy with HFrEF (~30% EF), prior TX with stents, DM type 2, HTN, HLD, [...] CODE Dain Colón MD Cardiology, M1-S2, Pager #[phone] 06/09/24 Associated attestation - Melida Valdes MD [...] a lytic and brought directly to the Telecommunicator. Cardiac catheterization demonstrated multivessel disease with severe [...] ven low EF. Melida Valdes MD Staff Stud Sheep Farmer * Alejandra Baumann, STEAM TABLE ASSOCIATE - 06/08/2024 4:10 PM EST Images from [...] ischemic cardiomyopathy with HFrEF (~30% EF), prior TX with stents, DM type 2, HTN, HLD, [...] to optimize glucose control Alejandra Baumann APRN [facility] Endocrinology Diabetes Management Pager [phone] Weekends please page [phone] 35 minutes were spent over the course [...] PCP: Mauro Berumen MD PCP phone number: [phone] Date of Admission: 06/02/2024 ( Hospital Day 6 days ) Attending:Melida Valdes MD ID: 69 y.o. male with a h/o DM type 2, HTN, HLD, current smoker (2-3 cigarettes/day), HFrEF with anICD for low EF (~30%), and CAD with prior [place] x3 with JENNA placed in [place], Melanoma, PAD, presented to [facility] with 1 hour of retrosternal CP (05/13) while watching TV, found to have STEMI. Active Problems: Active Hospital Problems Diagnosis STEMI (ST elevation myocardial infarction) Acute on chronic heart failure with reduced ejection fraction (HFrEF, <= 40%) Coronary artery disease involving [place] coronary artery of [place] heart without angina pectoris Type 2 diabetes [...] in the last 7068 hours. Invalid input(s): [id number] Recent Labs 06/08/24 0409 06/07/24 2357 06/07/24200406/07/24 1631 06/07/24 1105 06/07/24 1103 06/07/24 0745 06/07/24 0425 06/07/24 0008 06/06/24201706/06/24 1539 06/06/24 1339 POCGLU 151 188 118 174 221* 250* 175 127 182 143 147 317* Heme No results for input(s): LDH, HAPTOGLOBIN, URICACID in the last 168 hours. ABG (Arterial Blood Gas) No results found for: PHART, PO2ART, NNW4XNR, GMO9IVG Microbiology: Microbiology Results (Last 30 days) No results found for the last 720 hours. Imaging: Results for orders placed or performed during the hospital encounter of 06/02/24 XR Chest One View (Exam End: 06/03/2024 2:41 AM) Result Value WORKSTATION ID [id number] Impression No radiographically evident acute cardiopulmonary process. Thank you for letting us participate in the care of this patient. If you are a health care provider and have any questions regarding this report, please contact the number below. For patients who have questions please contact the health direct support professional caregiver that requested your imaging first. Electronically signed by: Corazon Mauro MD, [facility] ([phone]), at 06/03/2024 3:06 AM MRI Cardiac Morphology Function wwo Contrast (Exam End: 06/07/2024 1:10 PM) Result Value WORKSTATION ID [id number] Impression - Findings consistent with an ischemic [...] - Mildly dilated left ventricle size with fwcaevur-qs-ywpdqght decreased LV systolic function. LV ejection fraction [...] who have questions please contact the health direct support professional caregiver that requested your imaging first. Electronically signed by: Kriss Alonzo MD, [facility] ([phone]), at 06/07/2024 2:[address] Chest wo Contrast (Generic) (Exam End: 06/03/2024 4:33 PM) Result Value WORKSTATION ID [id number] Impression Cardiomegaly. Biventricular ICD leads in place. Thank you for letting us participate in the care of this patient. If you are a health care provider and have any questions regarding this report, please contact the number below. For patients who have questions please contact the health direct support professional caregiver that requested your imaging first. Electronically signed by: Stuart Aponte MD, [facility] ([phone]), at 06/03/2024 4:47 PM XR Chest PA & Lateral (Generic) (Exam End: 06/07/2024 7:03 AM) Result Value WORKSTATION ID [id number] Impression Biventricular ICD leads intact and in [...] who have questions please contact the health direct support professional caregiver that requested your imaging first. Electronically signed by: Stuart Aponte MD, [facility] ([phone]), at 06/07/2024 10:45 AM TTE: Limited echo performed by fellow flight reservations manager to assess LV function. Left ventricle is [...] ischemic cardiomyopathy with HFrEF (~30% EF), prior TX with stents, DM type 2, HTN, HLD, [...] CODE Dain Colón MD Cardiology, M1-S2, Pager #[phone] 06/08/24 Associated attestation - Melida Valdes MD [...] a lytic and brought directly to the Telecommunicator. Cardiac catheterization demonstrated multivessel disease with severe [...] Otherwise clinically stable Melida Valdes MD Staff Stud Sheep Farmer * Ross Manuel PA - 06/07/2024 12:00 PM EST Cardiac Electrophysiology CIED Interrogation/Programming Note Asked by MRI staff to evaluate and program Medtronic COTTON GINNER HELPER-D to allow for MR imaging. Patient Active Problem List Diagnosis ','STEMI (ST elevation myocardial infarction) Acute on chronic heart failure with reduced ejection fraction (HFrEF, <= 40%) Coronary artery disease involving [place] coronary artery of [place] heart without angina pectoris Type 2 diabetes mellitus Device Data: Medtronic Amplia MRI Quad COTTON GINNER HELPER-D [id number] #[id number] 06/16/2019 RA Medtronic 4076 CapSureFix Novus [id number] 06/16/2019 RV Medtronic [id number] 06/16/2019 LV Medtronic 4298 Attain Performa MRI [id number] 06/16/2019 DDD @ 50/130/130 Adaptive Bi-V and LV VF >188bpm ATP, 35j x6 FVT >188-222bpm burst 2, 35jx5 VT Battery longevity: 2.5yrs; charge time 4s P wave: 2.3mV R wave: >20.0mV Atrial impedance: 458 ohms RV impedance: 646 ohms LV impedance: 722 ohms Atrial threshold: 0.5V @ 0.4ms RV threshold: LV threshold: 1.75V @ 0.4ms AP 0.2% RN TELEPHONIC 97.7% AT/AF 0% Impression and Plan: 1. Interrogated device to determine suitability for MRI 2. Programmed to MRI safe mode - VOO @ 70 3. Scan performed 4. Programming restored to baseline settings 5. Reinterrogated to verify appropriate function and settings 6. Device follow up as previously scheduled Provider: HENOK Meyer EP Consult attending physician: Libby Barton MD EP Consult positional pager #[phone](EPMD) EP Device interrogation positional pager # [phone] * Dain Colón MD - 06/07/2024 7:09 AM EST Images from the original note were not included. . Cardiology Progress Note Patient info: Name: George Mehta : 1955 PCP: Mauro Berumen MD PCP phone number: [phone] Date of Admission: 06/02/2024 ( Hospital Day 5 days ) Attending:Melida Valdes MD ID: 69 y.o. male with a h/o DM type 2, HTN, HLD, current smoker (2-3 cigarettes/day), HFrEF with anICD for low EF (~30%), and CAD with prior [place] x3 with JENNA placed in [place], Melanoma, PAD, presented to [facility] with 1 hour of retrosternal CP (05/13) while watching TV, found to have STEMI. Active Problems: Active Hospital Problems Diagnosis STEMI (ST elevation myocardial infarction) Acute on chronic heart failure with reduced ejection fraction (HFrEF, <= 40%) Coronary artery disease involving [place] coronary artery of [place] heart without angina pectoris Type 2 diabetes [...] in the last 7068 hours. Invalid input(s): [id number] Recent Labs 06/07/24 0425 06/07/24 0008 06/06/24 2018 06/06/24 1539 06/06/24 1339 06/06/24 1134 06/06/24 0757 06/06/24 0653 06/05/24 2231 06/05/24 1622 06/05/24 1134 06/05/24 0727 POCGLU 127 182 143 147 317* 264* 195 187 238* 205* 211* 166 Heme No results for input(s): LDH, HAPTOGLOBIN, URICACID in the last 168 hours. ABG (Arterial Blood Gas) No results found for: PHART, PO2ART, WMA2FDC, HGB1BVC Microbiology: Microbiology Results (Last 30 days) No results found for the last 720 hours. Imaging: Results for orders placed or performed during the hospital encounter of 06/02/24 XR Chest One View (Exam End: 06/03/2024 2:41 AM) Result Value WORKSTATION ID [id number] Impression No radiographically evident acute cardiopulmonary process. Thank you for letting us participate in the care of this patient. If you are a health care provider and have any questions regarding this report, please contact the number below. For patients who have questions please contact the health direct support professional caregiver that requested your imaging first. Electronically signed by: Corazon Mauro MD, [facility] ([phone]), at 06/03/2024 3:[address] Chest wo Contrast (Generic) (Exam End: 06/03/2024 4:33 PM) Result Value WORKSTATION ID [id number] Impression Cardiomegaly. Biventricular ICD leads in place. Thank you for letting us participate in the care of this patient. If you are a health care provider and have any questions regarding this report, please contact the number below. For patients who have questions please contact the health direct support professional caregiver that requested your imaging first. Electronically signed by: Stuart Aponte MD, [facility] ([phone]), at 06/03/2024 4:47 PM TTE: Limited echo performed by fellow flight reservations manager to assess LV function. Left ventricle is [...] ischemic cardiomyopathy with HFrEF (~30% EF), prior TX with stents, DM type 2, HTN, HLD, [...] Dain Colón MD (PGY-1) Cardiology, M1-S2, Pager #[phone] 06/07/24 Associated attestation - Melida Valdes MD [...] a lytic and brought directly to the Telecommunicator. Cardiac catheterization demonstrated multivessel disease with severe [...] for further guidance. Melida Valdes MD Staff Stud Sheep Farmer * Dain Colón MD - 06/06/2024 7:17 AM EST Images from the original note were not included. . Cardiology Progress Note Patient info: Name: George Mehta : 1955 PCP: Mauro Berumen MD PCP phone number: [phone] Date of Admission: 06/02/2024 ( Hospital Day 4 days ) Attending:Melida Valdes MD ID: 69 y.o. male with a h/o DM type 2, HTN, HLD, current smoker (2-3 cigarettes/day), HFrEF with anICD for low EF (~30%), and CAD with prior TX x3 with JENNA placed in [place], Melanoma, PAD, presented to [facility] with 1 hour of retrosternal CP (05/13) while watching TV, found to have STEMI. Active Problems: Active Hospital Problems Diagnosis STEMI (ST elevation myocardial infarction) Acute on chronic heart failure with reduced ejection fraction (HFrEF, <= 40%) Coronary artery disease involving [place] coronary artery of [place] heart without angina pectoris Type 2 diabetes [...] in the last 7068 hours. Invalid input(s): [id number] Recent Labs 06/06/24 0653 06/05/24 2231 06/05/24 1622 06/05/24 1134 06/05/24 0727 06/04/24 1943 06/04/24 1526 06/04/24 1109 06/04/24 0711 06/03/24 2005 06/03/24 1748 06/03/24 1114 POCGLU 187 238* 205* 211* 166 175 154 188 182 136 191 166 Heme No results for input(s): LDH, HAPTOGLOBIN, URICACID in the last 168 hours. ABG (Arterial Blood Gas) No results found for: PHART, PO2ART, SAA7GXM, XOG6FKV Microbiology: Microbiology Results (Last 30 days) No results found for the last 720 hours. Imaging: Results for orders placed or performed during the hospital encounter of 06/02/24 XR Chest One View (Exam End: 06/03/2024 2:41 AM) Result Value WORKSTATION ID [id number] Impression No radiographically evident acute cardiopulmonary process. Thank you for letting us participate in the care of this patient. If you are a health care provider and have any questions regarding this report, please contact the number below. For patients who have questions please contact the health direct support professional caregiver that requested your imaging first. Electronically signed by: Corazon Mauro MD, [facility] ([phone]), at 06/03/2024 3:[address] Chest wo Contrast (Generic) (Exam End: 06/03/2024 4:33 PM) Result Value WORKSTATION ID [id number] Impression Cardiomegaly. Biventricular ICD leads in place. Thank you for letting us participate in the care of this patient. If you are a health care provider and have any questions regarding this report, please contact the number below. For patients who have questions please contact the health direct support professional caregiver that requested your imaging first. Electronically signed by: Stuart Aponte MD, [facility] ([phone]), at 06/03/2024 4:47 PM TTE: Limited echo performed by fellow flight reservations manager to assess LV function. Left ventricle is [...] ischemic cardiomyopathy with HFrEF (~30% EF), prior TX with stents, DM type 2, HTN, HLD, [...] Dain Colón MD (PGY-1) Cardiology, M1-S2, Pager #[phone] 06/06/24 Associated attestation - Melida Valdes MD [...] a lytic and brought directly to the Telecommunicator. Cardiac catheterization demonstrated multivessel disease with severe [...] management. Help appreciated Melida Valdes MD Staff Stud Sheep Farmer * Frederick Dunn MD - 06/05/2024 8:13 AM EDT Images from the original note were not included. . Cardiology Progress Note Patient info: Name: George Mehta : 1955 PCP: Mauro Berumen MD PCP phone number: [phone] Date of Admission: 06/02/2024 ( Hospital Day 3 days ) Attending:Melida Valdes MD ID: 69 y.o. male with a h/o DM type 2, HTN, HLD, current smoker (2-3 cigarettes/day), HFrEF with anICD for low EF (~30%), and CAD with prior [place] x3 with JENNA placed in [place], Melanoma, PAD, presented to [facility] with 1 hour of retrosternal CP (05/13) [...] in the last 7068 hours. Invalid input(s): [id number] Recent Labs 06/05/24 1134 06/05/24 0727 06/04/24 1943 06/04/24 1526 06/04/24 1109 06/04/24 0711 06/03/24 2005 06/03/24 1748 06/03/24 1114 06/03/24 0754 06/02/24 2331 POCGLU 211* 166 175 154 188 182 136 191 166 195 156 Heme No results for input(s): LDH, HAPTOGLOBIN, URICACID in the last 168 hours. ABG (Arterial Blood Gas) No results found for: PHART, PO2ART, BEK8VDF, CTP9LTG Microbiology: Microbiology Results (Last 30 days) No results found for the last 720 hours. Imaging: Results for orders placed or performed during the hospital encounter of 06/02/24 XR Chest One View (Exam End: 06/03/2024 2:41 AM) Result Value WORKSTATION ID [id number] Impression No radiographically evident acute cardiopulmonary process. Thank you for letting us participate in the care of this patient. If you are a health care provider and have any questions regarding this report, please contact the number below. For patients who have questions please contact the health direct support professional caregiver that requested your imaging first. Electronically signed by: Corazon Mauro MD, [facility] ([phone]), at 06/03/2024 3:[address] Chest wo Contrast (Generic) (Exam End: 06/03/2024 4:33 PM) Result Value WORKSTATION ID [id number] Impression Cardiomegaly. Biventricular ICD leads in place. Thank you for letting us participate in the care of this patient. If you are a health care provider and have any questions regarding this report, please contact the number below. For patients who have questions please contact the health direct support professional caregiver that requested your imaging first. Electronically signed by: Stuart Aponte MD, [facility] ([phone]), at 06/03/2024 4:47 PM TTE: Limited echo performed by fellow flight reservations manager to assess LV function. Left ventricle is [...] ischemic cardiomyopathy with HFrEF (~30% EF), prior TX with stents, DM type 2, HTN, HLD, [...] all the information they need regarding the COTTON GINNER HELPER-D.Plan for MRI tomorrow. Starting 40 mg IV [...] a lytic and brought directly to the Telecommunicator. Cardiac catheterization demonstrated multivessel disease with severe [...] maintenance of 40. Melida Valdes MD Staff Stud Sheep Farmer * Migel Javier RN - 06/05/2024 6:21 AM EDT Implanted device record scanned into: Chart Review-->Media-->External Cardiology-->03/25/2024. Medtronic Amplia MRI Quad CRTD [id number] Serial #: [id number] DDD mode A + Bi/V Rates 50-130 Migel Javier RN * Dain Colón MD - 06/04/2024 11:16 AM EDT Implant Records Requested Type: COTTON GINNER HELPER-D Working Second Hand: Medtronic Product: [id number] Amplia MRI MRI compatibility: Compatible for 1.5-3 T Model #: [id number] Placed at: [place], [place] Records requested for MRI: 1. Operative report 2. Implant log I requested that these records be sent to our MRI department, Dain Colón MD 06/04/24 11:58 AM * Dain Colón MD - 06/04/2024 6:57 AM EDT Images from the original note were not included. . Cardiology Progress Note Patient info: Name: George Mehta : 1955 PCP: Mauro Berumen MD PCP phone number: [phone] Date of Admission: 06/02/2024 ( Hospital Day 2 days ) Attending:Delroy Fofana MD ID: 69 y.o. male with a h/o DM type 2, HTN, HLD, current smoker (2-3 cigarettes/day), HFrEF with anICD for low EF (~30%), and CAD with prior TX x3 with JENNA placed in [place], Melanoma, PAD, presented to [facility] with 1 hour of retrosternal CP (05/13) [...] in the last 7068 hours. Invalid input(s): DZYLWCFLUSI1U Recent Labs 06/03/24 2005 06/03/24 1748 06/03/24 1114 06/03/24 0754 06/02/24 2331 POCGLU 136 191 166 195 156 Heme No results for input(s): LDH, HAPTOGLOBIN, URICACID in the last 168 hours. ABG (Arterial Blood Gas) No results found for: PHART, PO2ART, IGQ5RHF, OWT1OUN Microbiology: Microbiology Results (Last 30 days) No results found for the last 720 hours. Imaging: Results for orders placed or performed during the hospital encounter of 06/02/24 XR Chest One View (Exam End: 06/03/2024 2:41 AM) Result Value WORKSTATION ID [id number] Impression No radiographically evident acute cardiopulmonary process. Thank you for letting us participate in the care of this patient. If you are a health care provider and have any questions regarding this report, please contact the number below. For patients who have questions please contact the health direct support professional caregiver that requested your imaging first. Electronically signed by: Corazon Mauro MD, [facility] ([phone]), at 06/03/2024 3:[address] Chest wo Contrast (Generic) (Exam End: 06/03/2024 4:33 PM) Result Value WORKSTATION ID [id number] Impression Cardiomegaly. Biventricular ICD leads in place. Thank you for letting us participate in the care of this patient. If you are a health care provider and have any questions regarding this report, please contact the number below. For patients who have questions please contact the health direct support professional caregiver that requested your imaging first. Electronically signed by: Stuart Aponte MD, [facility] ([phone]), at 06/03/2024 4:47 PM TTE: Limited echo performed by fellow flight reservations manager to assess LV function. Left ventricle is [...] ischemic cardiomyopathy with HFrEF (~30% EF), prior TX with stents, DM type 2, HTN, HLD, [...] -Lasix 40 mg IV given in the laborer cement gun placing; assess diuretic response, consider re-dosing -Continue carvedilol; [...] a lytic and brought directly to the Telecommunicator. Cardiac catheterization demonstrated multivessel disease with severe [...] Friday -Diuresis with Jovanni Valdes MD Staff Stud Sheep Farmer * Fatmata Mcallister, PT - 06/03/2024 3:29 [...] vs PCI) Fatmata Mcallister PT, MSPT Pager [phone] Inpatient Physical Therapy * Marlin Gómez MD [...] Marlin Gómez MD Cardiology S2, Pager # [phone] 06/03/2024 * Delroy Fofana MD - 06/03/2024 7:16 AM EDT Images from the original note were not included. . Cardiology Progress Note Patient info: Name: George Mehta : 1955 PCP: Mauro Berumen MD PCP phone number: [phone] Date of Admission: 06/02/2024 ( Hospital Day 1 day ) Attending:Nuha Rojo MD ID: 69 y.o. male with a h/o DM type 2, HTN, HLD, current smoker (2-3 cigarettes/day), HFrEF with anICD for low EF (~30%), and CAD with prior [place] x3 with JENNA placed in [place], Melanoma, PAD, presented to [facility] with 1 hour of retrosternal CP (05/13) [...] in the last 7068 hours. Invalid input(s): KJHKEJGCAPS5C Recent Labs 06/02/24 2331 POCGLU 156 Heme No results for input(s): LDH, HAPTOGLOBIN, URICACID in the last 168 hours. ABG (Arterial Blood Gas) No results found for: PHART, PO2ART, CJE0ZUR, ZKX2MZH Microbiology: Microbiology Results (Last 30 days) No results found for the last 720 hours. Imaging: Results for orders placed or performed during the hospital encounter of 06/02/24 XR Chest One View (Exam End: 06/03/2024 2:41 AM) Result Value WORKSTATION ID [id number] Impression No radiographically evident acute cardiopulmonary process. Thank you for letting us participate in the care of this patient. If you are a health care provider and have any questions regarding this report, please contact the number below. For patients who have questions please contact the health direct support professional caregiver that requested your imaging first. Electronically signed by: Corazon Mauro MD, [facility] ([phone]), at 06/03/2024 3:06 AM TTE: Limited echo performed by fellow flight reservations manager to assess LV function. Left ventricle is [...] ischemic cardiomyopathy with HFrEF (~30% EF), prior TX with stents, DM type 2, HTN, HLD, [...] -Lasix 40 mg IV given in the laborer cement gun placing; assess diuretic response, consider re-dosing -Continue carvedilol; [...] of care per Dain Colón MD (medical imaging technologist). Please refer to his note above for details. Very pleasant 69 year old male but he is obese, diabetic, and he is a SMOKER with known prior CAD and moderately reduced LVEF (30%). He has a pacer. History of surgical resection of melanoma on his head. The patient was transferred overnight to [facility] as a STEMI. He was treated initially with a lytic (TNK) and brought directly to the laborer cement gun placing. The cath demonstrated 3VD with diffuse disease [...] - 06/13/2024 10:58 AM EST ICU Blue (#[id number]) H&P Patient info: Name: George Mehta : 1955 PCP: Mauro Berumen MD PCP phone number: [phone] Date of Admission: 06/02/2024 ( Hospital Day 11 days ) Attending:Haja Byrnes MD ID: George Mehta is a 69 y.o. male with a h/o DM type 2, HTN, HLD, current smoker (2-3 cigarettes/day), HFrEF with an ICD for low EF (~30%), and CAD with prior TX x3 with JENNA placed in [place], Melanoma, PAD, presented to [facility] with 1 hour of retrosternal CP (10/10) while watching TV, foundto have STEMI. HPI: Shahnaz Scanlon H&P 06/02 69 y.o. male with a h/o DM type 2, HTN, HLD, current smoker (2-3 cigarettes/day), HFrEF with an ICD for low EF (~30%), and CAD with prior TX x3 with JENNA placed in [place], Melanoma, PAD, presented to [facility] with 1 hour of retrosternal CP (05/13) while watching TV. CP was non-radiating, not asso ciated with diaphoresis, nausea, or SOB. Denies orthopnea, MARTÍNEZ, palpitations, or LE edema. ECG showed findings consistent with anterior STEMI. He received TNK and was transferred for PCI. Coronary angiography showed a small, non-dominant RCA with zkip-hz-mlihcjwo disease and a dominant,heavily calcified left system with prior stents in the LAD and OM. The LM bifurcates into the LAD and LCX, both heavily calcified. The proximal LCX has a 75% calcified, aneurysmal lesion, and an 80% calcified lesion distally before a large OM2. OM1 is a CHEMICAL ENGRAVER with in-stent restenosis, filling retrograde via collaterals. [...] 40 mg Lasix was administered in the laborer cement gun placing. Cardiac surgery was consulted and plan for [...] Blood Gas) No results for input(s): PHART, LSP9UMN, PO2ART, YNQ0BXL, LACTATEVEN, SQS8EJQ, PFRATIOART2 in the last 168 hours. VBG (Venous Blood Gas) Recent Labs 06/10/24 1742 PHVEN 7.34 PO2VEN 24 IHU3VTO 27.4 Mixed Venous Sat No results for input(s): V4VQIV4 in the last 168 hours. Intake/Output Summary [...] in the last 7067 hours. Invalid input(s): YFTQOUQKJWK7F Recent Labs 06/13/24 0741 06/13/24 0325 06/12/24 2353 06/12/24 1932 06/12/24 1541 06/12/24 1121 06/12/24 0800 06/12/24 0425 06/11/24 2356 06/11/24 2025 06/11/24 1624 06/11/24 1108 POCGLU 126 99 141 158 113 207* 169 132 135 210* 81 233* Heme No results for input(s): LDH, HAPTOGLOBIN, URICACID in the last 168 hours. ABG (Arterial Blood Gas) No results for input(s): PHART, BVK7MAU, PO2ART, REH1GRX, LACTATEVEN, FTY5HFT, PFRATIOART2 in the last 168 hours. VBG (Venous Blood Gas) Recent Labs 06/10/24 1742 PHVEN 7.34 PO2VEN 24 ALE5ZPC 27.4 Mixed Venous Sat No results for input(s): Q7XXPI9 in the last 168 hours. Microbiology: Microbiology Results (Last 30 days) No results found for the last 720 hours. Assessment & Plan: George Mehta is a 69 y.o. male with CAD, ischemic cardiomyopathy with HFrEF (~30% EF), prior TX with stents, DM type 2, HTN, HLD, [...] (Give Meds) Daily Healthy Menu Choices/Cardiac diet ([facility]-Diet) DVT Prophylaxis: SCD GI Prophylaxis: None Dispo: [...] TUD (abstinent since admission), ASCVD with multipleprior TX and PCIs, ICM/HFrEF LVEF 30% (all [...] is in the chart Rebeca Prado MD Audio Visual Arts Director PGY6 [phone] * Shahnaz Scanlon MD - [...] low EF (~30%), and CAD with prior TX x3 with JENNA placed in [place], Melanoma, PAD, presented to [facility] with 1 hour of retrosternal CP (05/13) while watching TV. CP was non-radiating, not assoc iated with diaphoresis, nausea, or SOB. Denies orthopnea, MARTÍNEZ, palpitations, or LE edema. ECG showed findings consistent with anterior STEMI. He received TNK and was transferred for PCI. Coronary angiography showed a small, non-dominant RCA with cbhc-bv-zbjdsxeo disease and a dominant,heavily calcified left system with prior stents in the LAD and OM. The LM bifurcates into the LAD and LCX, both heavily calcified. The proximal LCX has a 75% calcified, aneurysmal lesion, and an 80% calcified lesion distally before a large OM2. OM1 is a CHEMICAL ENGRAVER with in-stent restenosis, filling retrograde via collaterals. [...] 40 mg Lasix was administered in the laborer cement gun placing. Past Medical History: As per HPI Significant [...] Affect: Mood normal. Behavior: Behavior normal. Diagnostics: [facility] 06/02/2024 Coronary angiography revealed small non [...] ischemic cardiomyopathy with HFrEF (~30% EF), prior TX with stents, DM type 2, HTN, HLD, [...] -Lasix 40 mg IV given in the laborer cement gun placing; assess diuretic response. -Continue carvedilol; hold Entresto [...] & Follow-up Care: Contact information for follow-up [facility] [address] [facility] [address] Cardiac Rehab, [address] [address] JAMIE GRAMAJO confirmed with [facility] that they [...] Payor: AARP MANAGED MEDICARE / Plan: AARP [facility] MANAGED MEDICARE COMPLETE / Product [...] Hospital-Acquired Illness or Injury 06/20/2024 1028 by Mihcelle Orozco RN Outcome: Ongoing (Interventions Implemented as [...] Implemented as Appropriate) 06/20/2024 1028 by Michelle rOozco RN Outcome: Ongoing (Interventions Implemented as Appropriate) Problem: Ongoing Anesthesia Effects (Cardiovascular Surgery) Goal: Anesthesia/Sedation Recovery 06/20/2024 1028 by Michelle Orozoc RN Outcome: [...] Roberts RN - 06/18/2024 10:50 AM EST [facility] CARDIAC REHABILITATION George Mehta was seen today regarding participation in the outpatient Phase 2 Cardiac Rehabilitation at [facility]. The patient agrees to a referral to [...] Agency/Support Group Needs: Homecare agency Agency Choices: [facility] Services: Medication checks, Registered Nurse, Physical Therapy Agency Referrals: pending clinical course and PT/OT recs [facility] [address] [facility] [address] PHONE: [phone] FAX: [phone] Transportation: family or friend will provide Barriers [...] MEDICARE Payor: AARP MANAGED MEDICARE / Plan: [facility] COM[facility]TE / Product Type: *No Product type* / Secondary Insurance: N/A Plan for discharge is: Home w/ Services Outpatient Agency/Support Group Needs: Homecare agency Agency Choices: [facility]: Medication checks, Registered Nurse, Physical Therapy Agency Referrals: pending clinical course and PT/OT recs [facility] [address] [place] [address] PHONE: [phone] FAX: [phone] Transportation: family or friend will provide Barriers [...] Loja MD - 06/14/2024 8:48 AM EST [facility] Operative Note Patient Name: George Mehta : [id number] MR#: [id number] Case Date: 06/14/2024 Surgeon: Surgeons and Role: * Bobby Loja MD - Primary * Rashi Bass PA - Physician Skimmer Scoop Operator Preoperative diagnosis: CAD, MARIALUISA flickering mass [...] area. The patient was transported to the [facility] in a critical but stable condition Surgical [...] procedures today and tomorrow. Report called to [facility] - all belongings with patient. PLAN MOVING FORWARD: laboratory immunologist and transfer to [facility]. INDIVIDUALIZED FALL PREVENTION INTERVENTIONS: Assistance [level of [...] MEDICARE Payor: AARP MANAGED MEDICARE / Plan: [facility] MANAGED MEDICARE COMPLETE / Product Type: *No Product type* / Secondary Insurance: N/A Plan for discharge is: Home w/ Services Outpatient Agency/Support Group Needs: Homecare agency, Agency Choices: [facility] Home Health Services: Medication checks, Registered Nurse, Physical Therapy Agency Referrals: [facility] [address] [address] RN / PT Routed 06/10 Transportation: family [...] with home health services when medically ready. rn acute/Reacher will continue to follow patient???s progress and remain available if situation changes for coordination of care, psychosocial support and/or discharge planning. Anticipated Date of Discharge: 06/18/2024 Mariia Montero RN CM Extension [phone] * Plan of Care - Migel Javier [...] Payor: AARP MANAGED MEDICARE / Plan: AARP [facility] MANAGED MEDICARE COMPLETE / Product [...] consult for high risk PCI vs CABG rn acute/Reacher will continue to follow patient???s progress and remain available if situation changes for coordination of care, psychosocial support and/or discharge planning. Anticipated Date of Discharge: 06/11/2024 Mariia Montero RN CM Extension [phone] * Plan of Care - Becca Hope [...] ischemic cardiomyopathy with HFrEF (~30% EF), prior TX with stents, DM type 2, HTN, HLD, [...] CABG and to provide a review of computer terminal operator diabetes care. Diabetes History: George Mehta has [...] Breakfast- varies - eggs with khoury or turkmen muffin Lunch- turkey sandwich Supper- meat and [...] Infusions: heparin (porcine) infusion 1,400 Units/hr (06/06/24 5657) PRN: insulin lispro, potassium chloride ER OR [...] ischemic cardiomyopathy with HFrEF (~30% EF), prior TX with stents, DM type 2, HTN, HLD, [...] Baumann APRN Endocrinology Diabetes Management Service Pager: [phone] Weekends please page [phone] 80 minute visit was spent in counseling [...] high 80's. PLAN MOVING FORWARD: [facility] draws w/ AM labs. Continue with CT [...] y.o. male with a PMHx of previous TX s/p PCI x3, ICM/HFrEF (LVEF 30%) s/p ICD, DMII, HTN, HLD, remote melanoma, and smoker who presented to [facility] last night via EMS after developing acute, severe chest pain while watching TV. Patient was ruled in for STEMI, given TNK, ASA, plavix, heparin gtt, and sent to [facility] for coronary angiography. LHC demonstrated severely calcified left coronary system with notable LCx 75/80% lesions and CHEMICAL ENGRAVER OM1 with ISR with collateral retrograde filling, [...] elevation myocardial infarction) Past Medical History: previous TX s/p PCI x3 ICM/HFrEF (LVEF 30%) s/p [...] is large. OM1 appears to be a CHEMICAL ENGRAVER, with in stentrestenosis and fills retrograde via [...] y.o. male admitted with STEMI s/p TNK, [facility] showing multivessel CAD including ISR, no [...] to our service. Signed: Paula Treviño PA-C [facility] Section of Cardiac Surgery Date: 06/03/2024 [...] surrogate would be surrogate decision maker per [place] surrogate decision making law. (Only good for 180 days) Any patient receiving care in [place] must abide by [place] law. The hierarchy for surrogate decision making [...] (i) The agent with financial power of associate attorney or a conservator appointed in accordance [...] homeless or living in a long-term (including now)?: No In the past 12 months has the [employer], gas, oil, or water [employer] threatened to shut off services in your [...] in the bathroom) Home Address confirmed as: [address] [place] [address] [address] [facility] [address] Social & Family Supports: All names listed [...] Pertinent/Service Specific Information: Health/Prescription Coverage: Primary Insurance: [employer] MANAGED MEDICARE Payor: [employer]ICARE / Plan: [facility] MANAGED MEDICARE COMPLETE / Product Type: *No Product type* / Secondary Insurance: N/A ; Prescription Coverage: Yes Preferred Pharmacy: [phone] - [place], [place] - [address] [facility] [address] [facility] [address] [place] Status: Patient is a : No Primary Care Provider confirmed: Mauro Berumen MD [phone] Patient/Caregiver Goals of Treatment: Potential Needs for [...] care as indicated. [facility], [phone] * Brief Op Note - Angeles Gaxiola PA - 06/03/2024 12:23 AM EDT Preliminary Cardiac Catheterization Procedure Note: Patient Name: George Mehta : [id number] MR#: [id number] Case Date: 06/02/2024 - 06/03/2024 Junior Qa Analyst: Surgeons and Role: * Nuha Shen MD - Primary * Angeles Gaxiola PA - Physician Skimmer Scoop Operator Preoperative diagnosis: STEMI Postoperative diagnosis: * STEMI * Procedure(s) performed: RRA access [facility] Coronary angiogram IVUS LM/LAD/LCX Access: 6 Fr RRA A time-out was conducted prior to the start of the procedure to verify the correct patient and procedure, procedure location, and all relevant critical information. Preliminary findings: 69 year old current smoker (1-2 cigarette's per day), DM type 2, hypertension, dyslipidemia, ICD for HFrEF/low EF (~30%), CAD with prior TX and 3 stents historically (in [place]) who presented to [facility] with 1 hour of rest chest pain [...] is large. 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 Recommendations: surgical consult for possible open revascularization; [...] 7:20 AM EST Coronary artery disease involving [place] coronary artery of [place] heart without angina pectoris POC, GLUCOSE Routine [...] - 199 mg/dL 06/21/2024 3:51 AM EST [facility] Comment:Supplemental ranges: <140 mg/dL before meals <180 mg/dL all other times of the day. Blood CAPILLARY BLOOD / Unknown 06/21/2024 3:51 AM EST 06/21/2024 3:51 AM EST Bobby Loja MD POINT OF CARE TEST O RDERABLES [facility] [place] [address] * (ABNORMAL) Basic Metabolic Panel (06/21/2024 2:09 AM EST) Glucose 169 65 - 199 mg/dL 06/21/2024 3:10 AM EST [facility] Comment:Glucose Concentratio n >=200 mg/dL plus symptoms is consistent with Diabetes Mellitus. Blood Urea Nitrogen 27(H) 10 - 20 mg/dL 06/21/2024 3:10 AM EST [facility] Creatinine 1.24 0.80 - 1.50 mg/dL 06/21/2024 3:10 AM EST [facility] Sodium 138 135 - 145 mMol/L 06/21/2024 3:10 AM EST [facility] Potassium 4.2 3.5 - 5.0 mMol/L 06/21/2024 3:10 AM [facility] Chloride 100 98 - 107 mMol/L 06/21/2024 3:10 AM [facility] Carbon Dioxide 27 22 - 31 mMol/L 06/21/2024 3:10 AM [facility] Anion Gap 11 5 - 15 mMol/L 06/21/2024 3:10 AM [facility] Calcium 8.7 8.5 - 10.5 mg/dL 06/21/2024 3:10 AM [facility] Est Glomerular Filtration Rate - Male 64 mL/min/1. 73 m?? 06/21/2024 3:10 AM [facility] Comment: [...] EST 06/21/2024 2:37 AM EST Keila Garciafield STEAM TABLE ASSOCIATE CHEMISTRY ORDERABL ES [facility] [place] [address] * POC, GLUCOSE (06/21/2024 12:04 AM EST) Glucometer, POC 157 65 - 199 mg/dL 06/21/2024 12:04 AM EST [facility] Comment:Supplemental ranges: <140 mg/dL before meals <180 mg/dL all other times of the day. Blood CAPILLARY BLOOD / Unknown 06/21/2024 12:04 AM EST 06/21/2024 12:04 AM EST Narrative Authorizing Provider Result Saranya Loja MD POINT OF CARE TEST O NIKA Performing Organization Address City/[facility] Co de Phone Number [facility] [place] [address] * POC, GLUCOSE (06/20/2024 11:14 PM EST) Glucometer, POC 67 65 - 199 mg/dL 06/20/2024 11:14 PM EST [facility] Comment:Supplemental ranges: <140 mg/dL before meals <180 mg/dL all other times of the day. Blood CAPILLARY BLOOD / Unknown 06/20/2024 11:14 PM EST 06/20/2024 11:14 PM EST Bobby Loja MD POINT OF CARE TEST Abimael MAHER Performing Organization Address [facility] Co de Phone Number [facility] [place] [address] * POC, GLUCOSE (06/20/2024 7:16 PM EST) Glucometer, POC 132 65 - 199 mg/dL 06/20/2024 7:16 PM EST [facility] Comment:Supplemental ranges: <140 mg/dL before meals <180 mg/dL all other times of the day. Blood CAPILLARY BLOOD / Unknown 06/20/2024 7:16 PM EST 06/20/2024 7:16 PM EST Narrative Authorizing Provider Result Saranya Loja MD POINT OF CARE TEST Abimael MAHER Performing Organization Address [facility] Co de Phone Number [facility] [place] [address] * POC, GLUCOSE (06/20/2024 3:39 PM EST) Glucometer, POC 124 65 - 199 mg/dL 06/20/2024 3:40 PM EST [facility] Comment:Supplemental ranges: <140 mg/dL before meals <180 mg/dL all other times of the day. Blood CAPILLARY BLOOD / Unknown 06/20/2024 3:39 PM EST 06/20/2024 3:40 PM EST Bobby Loja MD POINT OF CARE TEST O NIKA [facility] [place] [address] * POC, GLUCOSE (06/20/2024 12:02 PM EST) Glucometer, POC 173 65 - 199 mg/dL 06/20/2024 12:03 PM EST [facility] Comment:Supplemental ranges: <140 mg/dL before meals <180 mg/dL all other times of the day. Blood CAPILLARY BLOOD / Unknown 06/20/2024 12:02 PM EST 06/20/2024 12:03 PM EST Bobby Loja MD POINT OF CARE TEST O NIKA Performing Organization Address City/[facility]/ZIP Co de Phone Number [facility] [place] [address] * POC, GLUCOSE (06/20/2024 7:10 AM EST) Glucometer, POC 130 65 - 199 mg/dL 06/20/2024 7:11 AM EST [facility] Comment:Supplemental ranges: <140 mg/dL before meals <180 mg/dL all other times of the day. Blood CAPILLARY BLOOD / Unknown 06/20/2024 7:10 AM EST 06/20/2024 7:11 AM EST Bobby Loja MD POINT OF CARE TEST O NIKA [facility] [place] [address] * (ABNORMAL) Basic Metabolic Panel (06/20/2024 2:28 AM EST) Glucose 79 65 - 199 mg/dL 06/20/2024 3:06 AM [facility] Comment:Glucose Concentratio n >=200 mg/dL plus symptoms is consistent with Diabetes Mellitus. Blood Urea Nitrogen 38(H) 10 - 20 mg/dL 06/20/2024 3:06 AM [facility] Creatinine 1.39 0.80 - 1.50 mg/dL 06/20/2024 3:06 AM [facility] Sodium 137 135 - 145 mMol/L 06/20/2024 3:06 AM [facility] Potassium 3.6 3.5 - 5.0 mMol/L 06/20/2024 3:06 AM [facility] Chloride 100 98 - 107 mMol/L 06/20/2024 3:06 AM [facility] Carbon Dioxide 29 22 - 31 mMol/L 06/20/2024 3:06 AM [facility] Anion Gap 8 5 - 15 mMol/L 06/20/2024 3:06 AM [facility] Calcium 8.4(L) 8.5 - 10.5 mg/dL 06/20/2024 3:06 AM [facility] Est Glomerular Filtration Rate - Male 56 mL/min/1. 73 m?? 06/20/2024 3:06 AM [facility] Comment: [...] APRN CHEMISTRY ORDERABL ES Performing Organization Address [facility] Co de Phone Number [facility] [place] [address] * POC, GLUCOSE (06/20/2024 12:32 AM EST) Glucometer, POC 86 65 - 199 mg/dL 06/20/2024 12:32 AM EST [facility] Comment:Supplemental ranges: <140 mg/dL before meals <180 mg/dL all other times of the day. Blood CAPILLARY BLOOD / Unknown 06/20/2024 12:32 AM EST 06/20/2024 12:32 AM EST Bobby Loja MD POINT OF CARE TEST O RDERABLES Performing Organization Address [facility] Co de Phone Number [facility] [place] [address] * (ABNORMAL) POC, GLUCOSE (06/20/2024 12:02 AM EST) Glucometer, POC 59(L) 65 - 199 mg/dL 06/20/2024 12:02 AM EST [facility] Comment:Supplemental ranges: <140 mg/dL before meals <180 mg/dL all other times of the day. Blood CAPILLARY BLOOD / Unknown 06/20/2024 12:02 AM EST 06/20/2024 12:03 AM EST Bobby Loja MD POINT OF CARE TEST O RDERAPIETER Performing Organization Address City/[facility]/ZIP Co de Phone Number [facility] [place] [address] * POC, GLUCOSE (06/19/2024 8:15 PM EST) Glucometer, POC 131 65 - 199 mg/dL 06/19/2024 8:15 PM EST [facility] Comment:Supplemental ranges: <140 mg/dL before meals <180 mg/dL all other times of the day. Blood CAPILLARY BLOOD / Unknown 06/19/2024 8:15 PM EST 06/19/2024 8:15 PM EST Narrative Authorizing Provider Result Saranya Loja MD POINT OF CARE TEST O NIKA Performing Organization Address [facility] Co de Phone Number [facility] [place] [address] * POC, GLUCOSE (06/19/2024 6:01 PM EST) Glucometer, POC 129 65 - 199 mg/dL 06/19/2024 6:01 PM EST [facility] Comment:Supplemental ranges: <140 mg/dL before meals <180 mg/dL all other times of the day. Blood CAPILLARY BLOOD / Unknown 06/19/2024 6:01 PM EST 06/19/2024 6:02 PM EST Bobby Loja MD POINT OF CARE TEST Abimael MAHER Performing Organization Address [facility] Co de Phone Number [facility] [place] [address] * POC, GLUCOSE (06/19/2024 4:51 PM EST) Glucometer, POC 155 65 - 199 mg/dL 06/19/2024 4:51 PM EST [facility] Comment:Supplemental ranges: <140 mg/dL before meals <180 mg/dL all other times of the day. Blood CAPILLARY BLOOD / Unknown 06/19/2024 4:51 PM EST 06/19/2024 4:51 PM EST Narrative Authorizing Provider Result Saranya Loja MD POINT OF CARE TEST Abimael MAHER Performing Organization Address [facility] Co de Phone Number [facility] [place] [address] * POC, GLUCOSE (06/19/2024 12:37 PM EST) Glucometer, POC 136 65 - 199 mg/dL 06/19/2024 12:37 PM EST [facility] Comment:Supplemental ranges: <140 mg/dL before meals <180 mg/dL all other times of the day. Blood CAPILLARY BLOOD / Unknown 06/19/2024 12:37 PM EST 06/19/2024 12:37 PM EST Bobby Loja MD POINT OF CARE TEST O NIKA [facility] [place] [address] * POC, GLUCOSE (06/19/2024 11:20 AM EST) Glucometer, POC 185 65 - 199 mg/dL 06/19/2024 11:21 AM EST [facility] Comment:Supplemental ranges: <140 mg/dL before meals <180 mg/dL all other times of the day. Blood CAPILLARY BLOOD / Unknown 06/19/2024 11:20 AM EST 06/19/2024 11:21 AM EST Bobby Loja MD POINT OF CARE TEST O NIKA Performing Organization Address City/[facility]/ZIP Co de Phone Number [facility] [place] [address] * POC, GLUCOSE (06/19/2024 7:21 AM EST) Glucometer, POC 125 65 - 199 mg/dL 06/19/2024 7:21 AM EST [facility] Comment:Supplemental ranges: <140 mg/dL before meals <180 mg/dL all other times of the day. Blood CAPILLARY BLOOD / Unknown 06/19/2024 7:21 AM EST 06/19/2024 7:22 AM EST Bobby Loja MD POINT OF CARE TEST O NIKA [facility] [place] [address] * POC, GLUCOSE (06/19/2024 4:52 AM EST) Glucometer, POC 125 65 - 199 mg/dL 06/19/2024 4:52 AM EST [facility] Comment:Supplemental ranges: <140 mg/dL before meals <180 mg/dL all other times of the day. Blood CAPILLARY BLOOD / Unknown 06/19/2024 4:52 AM EST 06/19/2024 4:52 AM EST Bobby Loja MD POINT OF CARE TEST O NIKA Performing Organization Address City/[facility]/ZIP Co de Phone Number [facility] [place] [address] * POC, GLUCOSE (06/19/2024 4:13 AM EST) Glucometer, POC 67 65 - 199 mg/dL 06/19/2024 4:13 AM EST [facility] Comment:Supplemental ranges: <140 mg/dL before meals <180 mg/dL all other times of the day. Blood CAPILLARY BLOOD / Unknown 06/19/2024 4:13 AM EST 06/19/2024 4:13 AM EST Bobby Loja MD POINT OF CARE TEST O NIKA Performing Organization Address [facility] Co de Phone Number [facility] [place] [address] * (ABNORMAL) POC, GLUCOSE (06/19/2024 3:48 AM EST) Glucometer, POC 51(LLL) 65 - 199 mg/dL 06/19/2024 3:48 AM EST [facility] Comment:Supplemental ranges: <140 mg/dL before meals <180 mg/dL all other times of the day. Blood CAPILLARY BLOOD / Unknown 06/19/2024 3:48 AM EST 06/19/2024 3:48 AM EST Bobby Loja MD POINT OF CARE TEST O NIKA Performing Organization Address City/[facility]/ZIP Co de Phone Number [facility] [place] [address] * (ABNORMAL) Basic Metabolic Panel (06/19/2024 3:44 AM EST) Glucose 53(LLL) 65 - 199 mg/dL 06/19/2024 4:48 AM [facility] Comment:Glucose Concentratio n >=200 mg/dL plus symptoms is consistent with Diabetes Mellitus. Blood Urea Nitrogen 42(H) 10 - 20 mg/dL 06/19/2024 4:48 AM [facility] Creatinine 1.29 0.80 - 1.50 mg/dL 06/19/2024 4:48 AM [facility] Sodium 138 135 - 145 mMol/L 06/19/2024 4:48 AM [facility] Potassium 3.6 3.5 - 5.0 mMol/L 06/19/2024 4:48 AM [facility] Chloride 100 98 - 107 mMol/L 06/19/2024 4:48 AM [facility] Carbon Dioxide 29 22 - 31 mMol/L 06/19/2024 4:48 AM [facility] Anion Gap 9 5 - 15 mMol/L 06/19/2024 4:48 AM [facility] Calcium 8.8 8.5 - 10.5 mg/dL 06/19/2024 4:48 AM [facility] Est Glomerular Filtration Rate - Male 61 mL/min/1. 73 m?? 06/19/2024 4:48 AM [facility] Comment: [...] APRN CHEMISTRY ORDERABL ES Performing Organization Address City/[facility]/ZIP Co de Phone Number [facility] [place] [address] * POC, GLUCOSE (06/19/2024 12:23 AM EST) Glucometer, POC 82 65 - 199 mg/dL 06/19/2024 12:23 AM EST [facility] Comment:Supplemental ranges: <140 mg/dL before meals <180 mg/dL all other times of the day. Blood CAPILLARY BLOOD / Unknown 06/19/2024 12:23 AM EST 06/19/2024 12:23 AM EST Bobby Loja MD POINT OF CARE TEST O NIKA Performing Organization Address [facility] Co de Phone Number [facility] [place] [address] * POC, GLUCOSE (06/18/2024 11:08 PM EST) Glucometer, POC 73 65 - 199 mg/dL 06/18/2024 11:08 PM EST [facility] Comment:Supplemental ranges: <140 mg/dL before meals <180 mg/dL all other times of the day. Blood CAPILLARY BLOOD / Unknown 06/18/2024 11:08 PM EST 06/18/2024 11:08 PM EST Bobby Loja MD POINT OF CARE TEST O NIKA Performing Organization Address City/[facility]/ZIP Co de Phone Number [facility] [place] [address] * POC, GLUCOSE (06/18/2024 7:32 PM EST) Glucometer, POC 167 65 - 199 mg/dL 06/18/2024 7:32 PM EST [facility] Comment:Supplemental ranges: <140 mg/dL before meals <180 mg/dL all other times of the day. Blood CAPILLARY BLOOD / Unknown 06/18/2024 7:32 PM EST 06/18/2024 7:32 PM EST Bobby Loja MD POINT OF CARE TEST O NIKA [facility] [place] [address] * POC, GLUCOSE (06/18/2024 6:08 PM EST) Glucometer, POC 140 65 - 199 mg/dL 06/18/2024 6:09 PM EST [facility] Comment:Supplemental ranges: <140 mg/dL before meals <180 mg/dL all other times of the day. Blood CAPILLARY BLOOD / Unknown 06/18/2024 6:08 PM EST 06/18/2024 6:09 PM EST Bobby Loja MD POINT OF CARE TEST O NIKA Performing Organization Address City/[facility]/ZIP Co de Phone Number [facility] [place] [address] * POC, GLUCOSE (06/18/2024 4:17 PM EST) Glucometer, POC 144 65 - 199 mg/dL 06/18/2024 4:17 PM EST [facility] Comment:Supplemental ranges: <140 mg/dL before meals <180 mg/dL all other times of the day. Blood CAPILLARY BLOOD / Unknown 06/18/2024 4:17 PM EST 06/18/2024 4:17 PM EST Bobby Loja MD POINT OF CARE TEST O NIKA [facility] [place] [address] * POC, GLUCOSE (06/18/2024 12:09 PM EST) Glucometer, POC 180 65 - 199 mg/dL 06/18/2024 12:09 PM EST [facility] Comment:Supplemental ranges: <140 mg/dL before meals <180 mg/dL all other times of the day. Blood CAPILLARY BLOOD / Unknown 06/18/2024 12:09 PM EST 06/18/2024 12:09 PM EST Bobby Loja MD POINT OF CARE TEST O NIKA Performing Organization Address [facility] Co de Phone Number [facility] [place] [address] * POC, GLUCOSE (06/18/2024 7:49 AM EST) Glucometer, POC 125 65 - 199 mg/dL 06/18/2024 7:50 AM EST [facility] Comment:Supplemental ranges: <140 mg/dL before meals <180 mg/dL all other times of the day. Blood CAPILLARY BLOOD / Unknown 06/18/2024 7:49 AM EST 06/18/2024 7:50 AM EST Bobby Loja MD POINT OF CARE TEST Abimael MAHER Performing Organization Address [facility] Co de Phone Number [facility] [place] [address] * (ABNORMAL) Basic Metabolic Panel (06/18/2024 4:19 AM EST) Glucose 103 65 - 199 mg/dL 06/18/2024 5:03 AM [facility] Comment:Glucose Concentratio n >=200 mg/dL plus symptoms is consistent with Diabetes Mellitus. Blood Urea Nitrogen 43(H) 10 - 20 mg/dL 06/18/2024 5:03 AM [facility] Creatinine 1.45 0.80 - 1.50 mg/dL 06/18/2024 5:03 AM [facility] Sodium 131(L) 135 - 145 mMol/L 06/18/2024 5:03 AM [facility] Potassium 4.2 3.5 - 5.0 mMol/L 06/18/2024 5:03 AM [facility] Chloride 97(L) 98 - 107 mMol/L 06/18/2024 5:03 AM [facility] Carbon Dioxide 25 22 - 31 mMol/L 06/18/2024 5:03 AM [facility] Anion Gap 9 5 - 15 mMol/L 06/18/2024 5:03 AM [facility] Calcium 8.5 8.5 - 10.5 mg/dL 06/18/2024 5:03 AM [facility] Est Glomerular Filtration Rate - Male 53 mL/min/1. 73 m?? 06/18/2024 5:03 AM [facility] Comment: [...] EST 06/18/2024 4:31 AM EST Keila Dayan STEAM TABLE ASSOCIATE CHEMISTRY ORDERABL ES [facility] [place] [address] * POC, GLUCOSE (06/18/2024 3:50 AM EST) Glucometer, POC 99 65 - 199 mg/dL 06/18/2024 3:51 AM EST [facility] Comment:Supplemental ranges: <140 mg/dL before meals <180 mg/dL all other times of the day. Blood CAPILLARY BLOOD / Unknown 06/18/2024 3:50 AM EST 06/18/2024 3:51 AM EST Bobby Loja MD POINT OF CARE TEST O NIKA Performing Organization Address [facility] Co de Phone Number [facility] [place] [address] * POC, GLUCOSE (06/17/2024 11:10 PM EST) Glucometer, POC 92 65 - 199 mg/dL 06/17/2024 11:10 PM EST [facility] Comment:Supplemental ranges: <140 mg/dL before meals <180 mg/dL all other times of the day. Blood CAPILLARY BLOOD / Unknown 06/17/2024 11:10 PM EST 06/17/2024 11:10 PM EST Bobby Loja MD POINT OF CARE TEST O NIKA Performing Organization Address [facility] Co de Phone Number [facility] [place] [address] * POC, GLUCOSE (06/17/2024 7:54 PM EST) Glucometer, POC 126 65 - 199 mg/dL 06/17/2024 7:54 PM EST [facility] Comment:Supplemental ranges: <140 mg/dL before meals <180 mg/dL all other times of the day. Blood CAPILLARY BLOOD / Unknown 06/17/2024 7:54 PM EST 06/17/2024 7:54 PM EST Narrative Authorizing Provider Result Saranya Loja MD POINT OF CARE TEST O NIKA Performing Organization Address [facility] Co de Phone Number [facility] [place] [address] * POC, GLUCOSE (06/17/2024 4:07 PM EST) Glucometer, POC 141 65 - 199 mg/dL 06/17/2024 4:12 PM EST [facility] Comment:Supplemental ranges: <140 mg/dL before meals <180 mg/dL all other times of the day. Blood CAPILLARY BLOOD / Unknown 06/17/2024 4:07 PM EST 06/17/2024 4:12 PM EST Bobby Loja MD POINT OF CARE TEST O RDERABLES [facility] [place] [address] * XR Chest PA & Lateral (Generic) (06/17/2024 1:46 PM EST) WORKSTATION ID [id number] RAD Anatomical Region Laterality Modality Chest N/A [...] who have questions please contact the health direct support professional caregiver that requested your imaging first. ? Narrative [...] patients who have questions please contactthe health direct support professional caregiver that requested your imaging first. Electronically signed by: Josselyn Spence MD, [facility]([phone]), at 06/17/2024 4:49 PM Keila Hanley APRN IMG DX ORDERABLES * (ABNORMAL) POC, GLUCOSE (06/17/2024 11:04 AM EST) [facility] Signature Glucometer, POC 245(H) 65 - 199 mg/dL 06/17/2024 11:04 AM EST [facility] Comment:Supplemental ranges: <140 mg/dL before meals <180 mg/dL all other times of the day. Blood CAPILLARY BLOOD / Unknown 06/17/2024 11:04 AM EST 06/17/2024 11:04 AM EST Bobby Loja MD POINT OF CARE TEST O RDERABLES [facility] [place] [address] * POC, GLUCOSE (06/17/2024 7:49 AM EST) Glucometer, POC 141 65 - 199 mg/dL 06/17/2024 7:55 AM EST [facility] Comment:Supplemental ranges: <140 mg/dL before meals <180 mg/dL all other times of the day. Blood CAPILLARY BLOOD / Unknown 06/17/2024 7:49 AM EST 06/17/2024 7:55 AM EST Bobby Loja MD POINT OF CARE TEST O RDERABLES Performing Organization Address City/[facility]/ZIP Co de Phone Number [facility] [place] [address] * POC, GLUCOSE (06/17/2024 4:16 AM EST) Glucometer, POC 139 65 - 199 mg/dL 06/17/2024 4:16 AM EST [facility] Comment:Supplemental ranges: <140 mg/dL before meals <180 mg/dL all other times of the day. Blood CAPILLARY BLOOD / Unknown 06/17/2024 4:16 AM EST 06/17/2024 4:17 AM EST Bobby Loja MD POINT OF CARE TEST O RDERABLES Performing Organization Address City/[facility]/ZIP Co de Phone Number [facility] [place] [address] * Lactate, Whole Blood (06/17/2024 2:39 AM EST) Lactate, Whole Blood 1.3 0.5 - 2.2 mmol/L 06/17/2024 2:46 AM EST [facility] Blood VENOUS BLOOD SPECIMEN / Unknown Venipuncture / Unknown 06/17/2024 2:39 AM EST 06/17/2024 2:43 AM EST Bobby Loja MD CHEMISTRY ORDERABLES [facility] [place] [address] * (ABNORMAL) Hemogram (06/17/2024 2:39 AM EST) White Blood Cell 13.53(H) 4.00 - 9.50 x10(3)/mc L 06/17/2024 2:53 AM [facility] Red Blood Cell 3.55(L) 4.58 - 5.54 x10(6)/mc L 06/17/2024 2:53 AM [facility] Hemoglobin 10.8(L) 13.7 - 16.5 g/dL 06/17/2024 2:53 AM [facility] Hematocrit 33.0(L) 40.5 - 48.5 % 06/17/2024 2:53 AM [facility] Mean Cell Volume 93.0 82.9 - 93.1 fL 06/17/2024 2:53 AM [facility] Mean Cell Hemoglobin 30.4 27.5 - 32.1 pg 06/17/2024 2:53 AM [facility] Mean Cell Hemoglobin Concentration 32.7 32.0 - 35.7 g/dL 06/17/2024 2:53 AM [facility] Platelet 101(L) 145 - 357 x10(3)/mc L 06/17/2024 2:53 AM [facility] Mean Platelet Volume 10.4 7.6 - 12.9 fL 06/17/2024 2:53 AM [facility] RDW Standard Deviation 48.4(H) 36.0 - 45.0 fL 06/17/2024 2:53 AM [facility] RDW coefficient of variation 14.1(H) 11.4 - 13.8 % 06/17/2024 2:53 AM [facility] NRBC% auto 0.0 % 06/17/2024 2:53 AM [facility] NRBC Absolute <0.01 <0.01 x10(3)/mc L 06/17/2024 2:53 AM [facility] Blood VENOUS BLOOD SPECIMEN / Unknown Venipuncture / Unknown 06/17/2024 2:39 AM EST 06/17/2024 2:43 AM EST Bobby Loja MD HEMATOLOGY ORDERABLE S [facility] [place] [address] * (ABNORMAL) Basic Metabolic Panel (06/17/2024 2:39 AM EST) Glucose 149 65 - 199 mg/dL 06/17/2024 3:14 AM EST [facility] Comment:Glucose Concentratio n >=200 mg/dL plus symptoms is consistent with Diabetes Mellitus. Blood Urea Nitrogen 42(H) 10 - 20 mg/dL 06/17/2024 3:14 AM [facility] Creatinine 1.52(H) 0.80 - 1.50 mg/dL 06/17/2024 3:14 AM [facility] Sodium 133(L) 135 - 145 mMol/L 06/17/2024 3:14 AM [facility] Potassium 4.5 3.5 - 5.0 mMol/L 06/17/2024 3:14 AM [facility] Chloride 101 98 - 107 mMol/L 06/17/2024 3:14 AM [facility] Carbon Dioxide 23 22 - 31 mMol/L 06/17/2024 3:14 AM [facility] Anion Gap 9 5 - 15 mMol/L 06/17/2024 3:14 AM [facility] Calcium 8.8 8.5 - 10.5 mg/dL 06/17/2024 3:14 AM [facility] Est Glomerular Filtration Rate - Male 50 mL/min/1. 73 m?? 06/17/2024 3:14 AM [facility] Comment: [...] Loja MD CHEMISTRY ORDERABLES Performing Organization Address [facility] Co de Phone Number [facility] [place] [address] * (ABNORMAL) POC, GLUCOSE (06/17/2024 12:13 AM EST) Glucometer, POC 211(H) 65 - 199 mg/dL 06/17/2024 12:13 AM EST [facility] Comment:Supplemental ranges: <140 mg/dL before meals <180 mg/dL all other times of the day. Blood CAPILLARY BLOOD / Unknown 06/17/2024 12:13 AM EST 06/17/2024 12:14 AM EST Bobby Loja MD POINT OF CARE TEST O RDERABLES Performing Organization Address City/[facility] Co de Phone Number [facility] [place] [address] * (ABNORMAL) POC, GLUCOSE (06/16/2024 7:22 PM EST) Glucometer, POC 229(H) 65 - 199 mg/dL 06/16/2024 7:22 PM EST [facility] Comment:Supplemental ranges: <140 mg/dL before meals <180 mg/dL all other times of the day. Blood CAPILLARY BLOOD / Unknown 06/16/2024 7:22 PM EST 06/16/2024 7:22 PM EST Bobby Loja MD POINT OF CARE TEST O NIKA Performing Organization Address [facility] Co de Phone Number [facility] [place] [address] * (ABNORMAL) POC, GLUCOSE (06/16/2024 6:14 PM EST) Glucometer, POC 220(H) 65 - 199 mg/dL 06/16/2024 6:14 PM EST [facility] Comment:Supplemental ranges: <140 mg/dL before meals <180 mg/dL all other times of the day. Blood CAPILLARY BLOOD / Unknown 06/16/2024 6:14 PM EST 06/16/2024 6:14 PM EST Bobby Loja MD POINT OF CARE TEST O NIKA Performing Organization Address [facility] de Phone Number [facility] [place] [address] * Lactate, Whole Blood (06/16/2024 6:14 PM EST) Lactate, Whole Blood 1.8 0.5 - 2.2 mmol/L 06/16/2024 6:27 PM EST [facility] Blood VENOUS BLOOD SPECIMEN / Unknown Venipuncture / Unknown 06/16/2024 6:14 PM EST 06/16/2024 6:25 PM EST Bobby Loja MD CHEMISTRY ORDERABLES Performing Organization Address [facility] Co de Phone Number [facility] [place] [address] * (ABNORMAL) POC, GLUCOSE (06/16/2024 4:14 PM EST) Glucometer, POC 240(H) 65 - 199 mg/dL 06/16/2024 4:14 PM EST [facility] Comment:Supplemental ranges: <140 mg/dL before meals <180 mg/dL all other times of the day. Blood CAPILLARY BLOOD / Unknown 06/16/2024 4:14 PM EST 06/16/2024 4:14 PM EST Bobby Loja MD POINT OF CARE TEST O NIKA Performing Organization Address [facility]/ZIP Co de Phone Number [facility] [place] [address] * POC, GLUCOSE (06/16/2024 11:49 AM EST) Glucometer, POC 199 65 - 199 mg/dL 06/16/2024 11:49 AM EST [facility] Comment:Supplemental ranges: <140 mg/dL before meals <180 mg/dL all other times of the day. Blood CAPILLARY BLOOD / Unknown 06/16/2024 11:49 AM EST 06/16/2024 11:49 AM EST Bobby Loja MD POINT OF CARE TEST Abimael MAHER Performing Organization Address [facility] Co de Phone Number [facility] [place] [address] * (ABNORMAL) Hemogram (06/16/2024 11:44 AM EST) White Blood Cell 17.91(H) 4.00 - 9.50 x10(3)/mc L 06/16/2024 12:25 PM [facility] Red Blood Cell 3.47(L) 4.58 - 5.54 x10(6)/mc L 06/16/2024 12:25 PM [facility] Hemoglobin 10.5(L) 13.7 - 16.5 g/dL 06/16/2024 12:25 PM [facility] Hematocrit 33.1(L) 40.5 - 48.5 % 06/16/2024 12:25 PM [facility] Mean Cell Volume 95.4(H) 82.9 - 93.1 fL 06/16/2024 12:25 PM [facility] Mean Cell Hemoglobin 30.3 27.5 - 32.1 pg 06/16/2024 12:25 PM [facility] Mean Cell Hemoglobin Concentration 31.7(L) 32.0 - 35.7 g/dL 06/16/2024 12:25 PM [facility] Platelet 101(L) 145 - 357 x10(3)/mc L 06/16/2024 12:25 PM [facility] Mean Platelet Volume 10.6 7.6 - 12.9 fL 06/16/2024 12:25 PM [facility] RDW Standard Deviation 49.5(H) 36.0 - 45.0 fL 06/16/2024 12:25 PM [facility] RDW coefficient of variation 14.2(H) 11.4 - 13.8 % 06/16/2024 12:25 PM [facility] NRBC% auto 0.0 % 06/16/2024 12:25 PM [facility] NRBC Absolute <0.01 <0.01 x10(3)/mc L 06/16/2024 12:25 PM [facility] Blood VENOUS BLOOD SPECIMEN / Unknown Venipuncture / Unknown 06/16/2024 11:44 AM EST 06/16/2024 12:03 PM EST Bobby Loja MD [place] [address] * Lactate, Whole Blood (06/16/2024 9:02 AM EST) Lactate, Whole Blood 1.8 0.5 - 2.2 mmol/L 06/16/2024 9:19 AM EST [facility] Blood VENOUS BLOOD SPECIMEN / Unknown Venipuncture / Unknown 06/16/2024 9:02 AM EST 06/16/2024 9:17 AM EST Bobby Loja MD CHEMISTRY ORDERABLES [facility] [place] [address] * POC, GLUCOSE (06/16/2024 7:44 AM EST) Glucometer, POC 129 65 - 199 mg/dL 06/16/2024 7:44 AM EST [facility] Comment:Supplemental ranges: <140 mg/dL before meals <180 mg/dL all other times of the day. Blood CAPILLARY BLOOD / Unknown 06/16/2024 7:44 AM EST 06/16/2024 7:44 AM EST Bobby Loja MD POINT OF CARE TEST O RDERABLES Performing Organization Address City/[facility]/ZIP Co de Phone Number [facility] [place] [address] * POC, GLUCOSE (06/16/2024 4:01 AM EST) Glucometer, POC 158 65 - 199 mg/dL 06/16/2024 4:01 AM EST [facility] Comment:Supplemental ranges: <140 mg/dL before meals <180 mg/dL all other times of the day. Blood CAPILLARY BLOOD / Unknown 06/16/2024 4:01 AM EST 06/16/2024 4:01 AM EST Bobby Loja MD POINT OF CARE TEST O RDERAPIETER Performing Organization Address City/[facility]/ZIP Co de Phone Number [facility] [place] [address] * (ABNORMAL) Basic Metabolic Panel (06/16/2024 2:23 AM EST) Glucose 177 65 - 199 mg/dL 06/16/2024 3:13 AM EST [facility] Comment:Glucose Concentratio n >=200 mg/dL plus symptoms is consistent with Diabetes Mellitus. Blood Urea Nitrogen 37(H) 10 - 20 mg/dL 06/16/2024 3:13 AM EST [facility] Creatinine 2.10(H) 0.80 - 1.50 mg/dL 06/16/2024 3:13 AM EST [facility] Sodium 132(L) 135 - 145 mMol/L 06/16/2024 3:13 AM [facility] Potassium 4.5 3.5 - 5.0 mMol/L 06/16/2024 3:13 AM [facility] Chloride 99 98 - 107 mMol/L 06/16/2024 3:13 AM [facility] Carbon Dioxide 22 22 - 31 mMol/L 06/16/2024 3:13 AM [facility] Anion Gap 11 5 - 15 mMol/L 06/16/2024 3:13 AM [facility] Calcium 9.0 8.5 - 10.5 mg/dL 06/16/2024 3:13 AM [facility] Est Glomerular Filtration Rate - Male 34 mL/min/1. 73 m?? 06/16/2024 3:13 AM [facility] Comment: [...] AM EST Bobby Loja MD CHEMISTRY ORDERABLES [facility] [place] [address] * POC, GLUCOSE (06/16/2024 2:21 AM EST) [facility] Signature Glucometer, POC 176 65 - 199 mg/dL 06/16/2024 2:31 AM [facility] Comment:Supplemental ranges: <140 mg/dL before meals <180 mg/dL all other times of the day. Blood CAPILLARY BLOOD / Unknown 06/16/2024 2:21 AM EST 06/16/2024 2:31 AM EST Bobby Loja MD POINT OF CARE TEST O RALPHERAPIETER Performing Organization Address City/[facility]/ZIP Co de Phone Number [facility] [place] [address] * (ABNORMAL) POC, GLUCOSE (06/16/2024 12:09 AM EST) Glucometer, POC 222(H) 65 - 199 mg/dL 06/16/2024 12:09 AM EST [facility] Comment:Supplemental ranges: <140 mg/dL before meals <180 mg/dL all other times of the day. Blood CAPILLARY BLOOD / Unknown 06/16/2024 12:09 AM EST 06/16/2024 12:09 AM EST Bobby Loja MD POINT OF CARE TEST O NIKA Performing Organization Address City/[facility]/ZIP Co de Phone Number [facility] [place] [address] * (ABNORMAL) POC, GLUCOSE (06/15/2024 10:07 PM EST) Glucometer, POC 320(H) 65 - 199 mg/dL 06/15/2024 10:07 PM EST [facility] Comment:Supplemental ranges: <140 mg/dL before meals <180 mg/dL all other times of the day. Blood CAPILLARY BLOOD / Unknown 06/15/2024 10:07 PM EST 06/15/2024 10:07 PM EST Bobby Loja MD POINT OF CARE TEST O NIKA [facility] [place] [address] * (ABNORMAL) POC, GLUCOSE (06/15/2024 7:56 PM EST) Glucometer, POC 304(H) 65 - 199 mg/dL 06/15/2024 7:56 PM EST [facility] Comment:Supplemental ranges: <140 mg/dL before meals <180 mg/dL all other times of the day. Blood CAPILLARY BLOOD / Unknown 06/15/2024 7:56 PM EST 06/15/2024 7:56 PM EST Bobby Loja MD POINT OF CARE TEST O NIKA Performing Organization Address [facility] Co de Phone Number [facility] [place] [address] * (ABNORMAL) POC, GLUCOSE (06/15/2024 7:52 PM EST) Glucometer, POC 288(H) 65 - 199 mg/dL 06/15/2024 7:52 PM EST [facility] Comment:Supplemental ranges: <140 mg/dL before meals <180 mg/dL all other times of the day. Blood CAPILLARY BLOOD / Unknown 06/15/2024 7:52 PM EST 06/15/2024 7:52 PM EST Bobby Loja MD POINT OF CARE TEST O NIKA Performing Organization Address [facility] Co de Phone Number [facility] [place] [address] * POC, GLUCOSE (06/15/2024 4:21 PM EST) Glucometer, POC 192 65 - 199 mg/dL 06/15/2024 4:21 PM EST [facility] Comment:Supplemental ranges: <140 mg/dL before meals <180 mg/dL all other times of the day. Blood CAPILLARY BLOOD / Unknown 06/15/2024 4:21 PM EST 06/15/2024 4:21 PM EST Bobby Loja MD POINT OF CARE TEST O NIKA [facility] [place] [address] * POC, GLUCOSE (06/15/2024 3:27 PM EST) Glucometer, POC 155 65 - 199 mg/dL 06/15/2024 3:27 PM EST [facility] Comment:Supplemental ranges: <140 mg/dL before meals <180 mg/dL all other times of the day. Blood CAPILLARY BLOOD / Unknown 06/15/2024 3:27 PM EST 06/15/2024 3:27 PM EST Bobby Loja MD POINT OF CARE TEST O NIKA Performing Organization Address City/[facility] Co de Phone Number [facility] [place] [address] * POC, GLUCOSE (06/15/2024 2:23 PM EST) Glucometer, POC 160 65 - 199 mg/dL 06/15/2024 2:23 PM EST [facility] Comment:Supplemental ranges: <140 mg/dL before meals <180 mg/dL all other times of the day. Blood CAPILLARY BLOOD / Unknown 06/15/2024 2:23 PM EST 06/15/2024 2:23 PM EST Bobby Loja MD POINT OF CARE TEST O NIKA Performing Organization Address City/[facility]/ZIP Co de Phone Number [facility] [place] [address] * POC, GLUCOSE (06/15/2024 1:26 PM EST) Glucometer, POC 167 65 - 199 mg/dL 06/15/2024 1:26 PM EST [facility] Comment:Supplemental ranges: <140 mg/dL before meals <180 mg/dL all other times of the day. Blood CAPILLARY BLOOD / Unknown 06/15/2024 1:26 PM EST 06/15/2024 1:26 PM EST Bobby Loja MD POINT OF CARE TEST O RDERABLES Performing Organization Address [facility] Co de Phone Number [facility] [place] [address] * (ABNORMAL) POC, GLUCOSE (06/15/2024 12:55 PM EST) Glucometer, POC 210(H) 65 - 199 mg/dL 06/15/2024 12:55 PM EST [facility] Comment:Supplemental ranges: <140 mg/dL before meals <180 mg/dL all other times of the day. Blood CAPILLARY BLOOD / Unknown 06/15/2024 12:55 PM EST 06/15/2024 12:55 PM EST Bobby Loja MD POINT OF CARE TEST O NIKA Performing Organization Address [facility] Co de Phone Number [facility] [place] [address] * (ABNORMAL) POC, GLUCOSE (06/15/2024 11:29 AM EST) Glucometer, POC 220(H) 65 - 199 mg/dL 06/15/2024 11:29 AM EST [facility] Comment:Supplemental ranges: <140 mg/dL before meals <180 mg/dL all other times of the day. Blood CAPILLARY BLOOD / Unknown 06/15/2024 11:29 AM EST 06/15/2024 11:29 AM EST Bobby Loja MD POINT OF CARE TEST O RALPHERAPIETER Performing Organization Address City/[facility] Co de Phone Number [facility] [place] [address] * (ABNORMAL) Basic Metabolic Panel (06/15/2024 11:23 AM EST) Glucose 215(H) 65 - 199 mg/dL 06/15/2024 12:08 PM EST [facility] Comment:Glucose Concentratio n >=200 mg/dL plus symptoms is consistent with Diabetes Mellitus. Blood Urea Nitrogen 24(H) 10 - 20 mg/dL 06/15/2024 12:08 PM [facility] Creatinine 1.54(H) 0.80 - 1.50 mg/dL 06/15/2024 12:08 PM [facility] Sodium 135 135 - 145 mMol/L 06/15/2024 12:08 PM [facility] Potassium 4.5 3.5 - 5.0 mMol/L 06/15/2024 12:08 PM [facility] Chloride 105 98 - 107 mMol/L 06/15/2024 12:08 PM [facility] Carbon Dioxide 19(L) 22 - 31 mMol/L 06/15/2024 12:08 PM [facility] Anion Gap 11 5 - 15 mMol/L 06/15/2024 12:08 PM [facility] Calcium 8.3(L) 8.5 - 10.5 mg/dL 06/15/2024 12:08 PM [facility] Est Glomerular Filtration Rate - Male 49 mL/min/1. 73 m?? 06/15/2024 12:08 PM [facility] Comment: This [...] AM EST Bobby Loja MD CHEMISTRY ORDERABLES [facility] [place] [id number] * POC, GLUCOSE (06/15/2024 10:29 AM EST) Glucometer, POC 189 65 - 199 mg/dL 06/15/2024 10:29 AM EST [facility] Comment:Supplemental ranges: <140 mg/dL before meals <180 mg/dL all other times of the day. Blood CAPILLARY BLOOD / Unknown 06/15/2024 10:29 AM EST 06/15/2024 10:29 AM EST Bobby Loja MD POINT OF CARE TEST O RDERAPIETER Performing Organization Address City/[facility]/ZIP Co de Phone Number [facility] [place] [address] * POC, GLUCOSE (06/15/2024 9:45 AM EST) Glucometer, POC 178 65 - 199 mg/dL 06/15/2024 9:45 AM EST [facility] Comment:Supplemental ranges: <140 mg/dL before meals <180 mg/dL all other times of the day. Blood CAPILLARY BLOOD / Unknown 06/15/2024 9:45 AM EST 06/15/2024 9:45 AM EST Bobby Loja MD POINT OF CARE TEST O RDBECKIE [facility] [place] [address] * (ABNORMAL) Cooximetry, POC (06/15/2024 9:31 AM EST) pO2, Coox 38 mmHg 06/15/2024 9:34 AM EST [facility] Hemoglobin, Coox 12.9(L) 13.7 - 16.5 g/dL 06/15/2024 9:34 AM EST [facility] Oxyhemoglobin, Coox 72.1 % 06/15/2024 9:34 AM EST [facility] Carboxyhemoglo bin, Coox 0.9 % 06/15/2024 9:34 AM EST [facility] Comment: Nonsmokers: 0.5-1.5% COHB ?? Smokers: Variable ??but usually less than 10% ?? Toxic: 20-30% COHB ?? Lethal: Greater than 60% COHB Methemoglobin, Coox 0.3 <=1.5 % 06/15/2024 9:34 AM EST [facility] Blood (Mixed Venous) 06/15/2024 9:31 AM EST 06/15/2024 9:34 AM EST Bobby Loja MD POINT OF CARE TEST O NIKA Performing Organization Address [facility] Co de Phone Number [facility] [place] [address] * Cooximetry, POC (06/15/2024 9:22 AM EST) pO2, Coox 30 mmHg 06/15/2024 9:25 AM EST [facility] Hemoglobin, Coox 06/15/2024 9:25 AM EST [facility] Comment:QUES Oxyhemoglobin, Coox 06/15/2024 9:25 AM EST [facility] Comment:QUES Carboxyhemoglo bin, Coox 06/15/2024 9:25 AM EST [facility] Comment:QUES Methemoglobin, Coox 06/15/2024 9:25 AM EST [facility] Comment:QUES Blood (Mixed Venous) 06/15/2024 9:22 AM EST 06/15/2024 9:25 AM EST Bobby Loja MD POINT OF CARE TEST O RDBECKIE Performing Organization Address City/[facility] Co de Phone Number [facility] [place] [address] * (ABNORMAL) Blood Gas, Arterial POC (06/15/2024 9:19 AM EST) pH, Arterial 7.31(L) 7.35 - 7.45 06/15/2024 9:21 AM [facility] PCO2, Arterial 36 35 - 45 mmHg 06/15/2024 9:21 AM [facility] PO2, Arterial 94 85 - 104 mmHg 06/15/2024 9:21 AM [facility] Bicarbonate, Arterial 18.0(L) 20.0 - 26.0 mmol/L 06/15/2024 9:21 AM [facility] Base Excess, Arterial -8.2(L) -3.0 - 3.0 mmol/L 06/15/2024 9:21 AM [facility] Hemoglobin, Arterial 12.7(L) 13.7 - 16.5 g/dL 06/15/2024 9:21 AM [facility] Oxyhemoglobin, Arterial 96.0 94.0 - 97.0 % 06/15/2024 9:21 AM [facility] Carboxyhemoglobin , Arterial 0.5 % 06/15/2024 9:21 AM [facility] Comment: Nonsmokers: 0.5-1.5% COHB ?? Smokers: Variable ??but usually less than 10% ?? Toxic: 20-30% COHB ?? Lethal: Greater than 60% COHB Methemoglobin, Arterial 0.3 <=1.5 % 06/15/2024 9:21 AM [facility] Sodium, Arterial 136 135 - 145 mmol/L 06/15/2024 9:21 AM [facility] Potassium, Arterial 4.0 3.5 - 5.0 mmol/L 06/15/2024 9:21 AM [facility] Chloride, Arterial 106 98 - 107 mmol/L 06/15/2024 9:21 AM [facility] Lactate, Arterial 1.7 0.5 - 2.2 mmol/L 06/15/2024 9:21 AM [facility] Flow Rate 2.0 L/min 06/15/2024 9:21 AM [facility] IONIZED CALCIUM, ARTERIAL 1.14(L) 1.15 - 1.33 mmol/L 06/15/2024 9:21 AM EST [facility] Glucose, Arterial 193 65 - 199 mg/dL 06/15/2024 9:21 AM EST [facility] Comment:Glucose Concentratio n >=200 mg/dL plus symptoms is consistent with Diabetes Mellitus. Blood ARTERIAL BLOOD / Unknown 06/15/2024 9:19 AM EST 06/15/2024 9:20 AM EST Bobby Loja MD POINT OF CARE TEST O NIKA Performing Organization Address [facility] Co de Phone Number [facility] [place] [address] * (ABNORMAL) POC, GLUCOSE (06/15/2024 8:37 AM EST) Glucometer, POC 204(H) 65 - 199 mg/dL 06/15/2024 8:37 AM EST [facility] Comment:Supplemental ranges: <140 mg/dL before meals <180 mg/dL all other times of the day. Blood CAPILLARY BLOOD / Unknown 06/15/2024 8:37 AM EST 06/15/2024 8:37 AM EST Bobby Loja MD POINT OF CARE TEST O NIKA Performing Organization Address [facility] Co de Phone Number [facility] [place] [address] * POC, GLUCOSE (06/15/2024 7:37 AM EST) Glucometer, POC 199 65 - 199 mg/dL 06/15/2024 7:37 AM EST [facility] Comment:Supplemental ranges: <140 mg/dL before meals <180 mg/dL all other times of the day. Blood CAPILLARY BLOOD / Unknown 06/15/2024 7:37 AM EST 06/15/2024 7:38 AM EST Narrative Authorizing Provider Result Saranya Loja MD POINT OF CARE TEST O NIKA Performing Organization Address City/State/[facility] de Phone Number [facility] [place] [address] * (ABNORMAL) POC, GLUCOSE (06/15/2024 7:01 AM EST) Glucometer, POC 203(H) 65 - 199 mg/dL 06/15/2024 7:01 AM EST [facility] Comment:Supplemental ranges: <140 mg/dL before meals <180 mg/dL all other times of the day. Blood CAPILLARY BLOOD / Unknown 06/15/2024 7:01 AM EST 06/15/2024 7:01 AM EST Bobby Loja MD POINT OF CARE TEST O RDERABLES Performing Organization Address [facility] de Phone Number [facility] [place] [address] * XR Chest One View (06/15/2024 6:31 AM EST) Pathologist Kira Talent WORKSTATION ID [id number] [facility] Anatomical Region Laterality Modality Chest N/A Digital [...] who have questions please contact the health direct support professional caregiver that requested your imaging first. ? Narrative [...] patients who have questions please contactthe health direct support professional caregiver that requested your imaging first. Electronically signed by: Stuart Aponte MD, [facility]([phone]), at 06/15/2024 10:38 AM Bobby Loja MD IMG DX ORDERABLES * POC, GLUCOSE (06/15/2024 6:02 AM EST) Glucometer, POC 179 65 - 199 mg/dL 06/15/2024 6:02 AM EST [facility] Comment:Supplemental ranges: <140 mg/dL before meals <180 mg/dL all other times of the day. Blood CAPILLARY BLOOD / Unknown 06/15/2024 6:02 AM EST 06/15/2024 6:02 AM EST Bobby Loja MD POINT OF CARE TEST O NIKA Performing Organization Address [facility] Co de Phone Number [facility] [place] [address] * POC, GLUCOSE (06/15/2024 5:06 AM EST) Glucometer, POC 160 65 - 199 mg/dL 06/15/2024 5:06 AM EST [facility] Comment:Supplemental ranges: <140 mg/dL before meals <180 mg/dL all other times of the day. Blood CAPILLARY BLOOD / Unknown 06/15/2024 5:06 AM EST 06/15/2024 5:06 AM EST Bobby Loja MD POINT OF CARE TEST Abimael MAHER Performing Organization Address [facility] Co de Phone Number [facility] [place] [address] * POC, GLUCOSE (06/15/2024 4:05 AM EST) Glucometer, POC 160 65 - 199 mg/dL 06/15/2024 4:06 AM EST [facility] Comment:Supplemental ranges: <140 mg/dL before meals <180 mg/dL all other times of the day. Blood CAPILLARY BLOOD / Unknown 06/15/2024 4:05 AM EST 06/15/2024 4:06 AM EST Bobby Loja MD POINT OF CARE TEST O NIKA Performing Organization Address City/[facility] Co de Phone Number [facility] [place] [address] * POC, GLUCOSE (06/15/2024 3:07 AM EST) Glucometer, POC 151 65 - 199 mg/dL 06/15/2024 3:07 AM EST [facility] Comment:Supplemental ranges: <140 mg/dL before meals <180 mg/dL all other times of the day. Blood CAPILLARY BLOOD / Unknown 06/15/2024 3:07 AM EST 06/15/2024 3:07 AM EST Bobby Loja MD POINT OF CARE TEST O RDERABLES [facility] [place] [address] * (ABNORMAL) Basic Metabolic Panel (06/15/2024 1:48 AM EST) Glucose 140 65 - 199 mg/dL 06/15/2024 2:38 AM EST [facility] Comment:Glucose Concentratio n >=200 mg/dL plus symptoms is consistent with Diabetes Mellitus. Blood Urea Nitrogen 21(H) 10 - 20 mg/dL 06/15/2024 2:38 AM [facility] Creatinine 1.27 0.80 - 1.50 mg/dL 06/15/2024 2:38 AM [facility] Sodium 140 135 - 145 mMol/L 06/15/2024 2:38 AM [facility] Potassium 4.4 3.5 - 5.0 mMol/L 06/15/2024 2:38 AM [facility] Chloride 108(H) 98 - 107 mMol/L 06/15/2024 2:38 AM [facility] Carbon Dioxide 23 22 - 31 mMol/L 06/15/2024 2:38 AM [facility] Anion Gap 9 5 - 15 mMol/L 06/15/2024 2:38 AM [facility] Calcium 8.3(L) 8.5 - 10.5 mg/dL 06/15/2024 2:38 AM [facility] Est Glomerular Filtration Rate - Male 62 mL/min/1. 73 m?? 06/15/2024 2:38 AM [facility] Comment: [...] AM EST Bobby Loja MD CHEMISTRY ORDERABLES [facility] [place] [address] * (ABNORMAL) CBC (with Diff) (06/15/2024 1:48 AM EST) White Blood Cell 11.71(H) 4.00 - 9.50 x10(3)/mc L 06/15/2024 2:13 AM [facility] Red Blood Cell 4.14(L) 4.58 - 5.54 x10(6)/mc L 06/15/2024 2:13 AM EST [facility] Hemoglobin 12.5(L) 13.7 - 16.5 g/dL 06/15/2024 2:13 AM [facility] Hematocrit 38.4(L) 40.5 - 48.5 % 06/15/2024 2:13 AM [facility] Mean Cell Volume 92.8 82.9 - 93.1 fL 06/15/2024 2:13 AM [facility] Mean Cell Hemoglobin 30.2 27.5 - 32.1 pg 06/15/2024 2:13 AM [facility] Mean Cell Hemoglobin Concentration 32.6 32.0 - 35.7 g/dL 06/15/2024 2:13 AM [facility] Platelet 101(L) 145 - 357 x10(3)/mc L 06/15/2024 2:13 AM [facility] Mean Platelet Volume 10.0 7.6 - 12.9 fL 06/15/2024 2:13 AM [facility] RDW Standard Deviation 48.8(H) 36.0 - 45.0 fL 06/15/2024 2:13 AM [facility] RDW coefficient of variation 14.2(H) 11.4 - 13.8 % 06/15/2024 2:13 AM [facility] NRBC% auto 0.0 % 06/15/2024 2:13 AM [facility] NRBC Absolute <0.01 <0.01 x10(3)/mc L 06/15/2024 2:13 AM [facility] Neutrophil % 79.7 % 06/15/2024 2:13 AM [facility] Neutrophil Absolute (ANC) - Automated 9.34(H) 1.70 - 6.10 x10(3)/mc L 06/15/2024 2:13 AM [facility] Lymph % 8.0 % 06/15/2024 2:13 AM [facility] Lymph Absolute 0.94 0.90 - 3.20 x10(3)/mc L 06/15/2024 2:13 AM [facility] Monocyte % 11.4 % 06/15/2024 2:13 AM [facility] Monocyte Absolute 1.33(H) 0.30 - 0.90 x10(3)/mc L 06/15/2024 2:13 AM [facility] Eos % 0.2 % 06/15/2024 2:13 AM [facility] Eos Absolute <0.04 0.00 - 0.40 x10(3)/mc L 06/15/2024 2:13 AM [facility] Basophil % 0.2 % 06/15/2024 2:13 AM [facility] Baso Absolute <0.04 0.00 - 0.10 x10(3)/mc L 06/15/2024 2:13 AM [facility] Immature Gran % 0.5 % 2:13 AM EST [facility] Immature Gran Absolute 0.06(H) 0.00 - 0.04 x10(3)/mc L 06/15/2024 2:13 AM EST [facility] Blood VENOUS BLOOD SPECIMEN / Unknown Venipuncture / Unknown 06/15/2024 1:48 AM EST 06/15/2024 1:52 AM EST Bobby Loja MD HEMATOLOGY ORDERABLE S [facility] [place] [address] * (ABNORMAL) Troponin - Single (06/15/2024 1:48 AM EST) Troponin-T, High Sensitivity 667(H) <=22 ng/L 06/15/2024 2:22 AM EST [facility] Comment: This patient's troponin [...] troponin value can be found in the [facility] Test Catalog Troponin - [email or web address] Reference: Fourth [place] Definition of Myocardial Infarction. Journal of the [place] [employer] 2018;72:5073-1350 Blood VENOUS BLOOD SPECIMEN / Unknown Venipuncture / Unknown 06/15/2024 1:48 AM EST 06/15/2024 1:52 AM EST Bobby Loja MD CHEMISTRY ORDERABLES [facility] [place] [address] * (ABNORMAL) Blood Gas, Arterial POC (06/15/2024 1:46 AM EST) pH, Arterial 7.33(L) 7.35 - 7.45 06/15/2024 1:47 AM EST [facility] PCO2, Arterial 40 35 - 45 mmHg 06/15/2024 1:47 AM [facility] PO2, Arterial 131(H) 85 - 104 mmHg 06/15/2024 1:47 AM [facility] Bicarbonate, Arterial 20.7 20.0 - 26.0 mmol/L 06/15/2024 1:47 AM [facility] Base Excess, Arterial -5.2(L) -3.0 - 3.0 mmol/L 06/15/2024 1:47 AM [facility] Hemoglobin, Arterial 13.4(L) 13.7 - 16.5 g/dL 06/15/2024 1:47 AM [facility] Oxyhemoglobin, Arterial 97.9(H) 94.0 - 97.0 % 06/15/2024 1:47 AM [facility] Carboxyhemoglobin , Arterial 0.5 % 06/15/2024 1:47 AM [facility] Comment: Nonsmokers: 0.5-1.5% COHB ?? Smokers: Variable ??but usually less than 10% ?? Toxic: 20-30% COHB ?? Lethal: Greater than 60% COHB Methemoglobin, Arterial 0.3 <=1.5 % 06/15/2024 1:47 AM EST [facility] Sodium, Arterial 139 135 - 145 mmol/L 06/15/2024 1:47 AM [facility] Potassium, Arterial 4.2 3.5 - 5.0 mmol/L 06/15/2024 1:47 AM [facility] Chloride, Arterial 107 98 - 107 mmol/L 06/15/2024 1:47 AM [facility] Lactate, Arterial 1.8 0.5 - 2.2 mmol/L 06/15/2024 1:47 AM [facility] Fraction of Inspired Oxygen 40 % 06/15/2024 1:47 AM [facility] PF Ratio 328 Ratio 06/15/2024 1:47 AM [facility] Comment:PF ratio calculated using the non-temperature corrected pO2 result. IONIZED CALCIUM, ARTERIAL 1.17 1.15 - 1.33 mmol/L 06/15/2024 1:47 AM [facility] Glucose, Arterial 127 65 - 199 mg/dL 06/15/2024 1:47 AM [facility] Comment:Glucose Concentratio n >=200 mg/dL plus symptoms is consistent with Diabetes Mellitus. Blood ARTERIAL BLOOD / Unknown 06/15/2024 1:46 AM EST 06/15/2024 1:47 AM EST Bobby Loja MD POINT OF CARE TEST O NIKA Performing Organization Address City/[facility]/ZIP Co de Phone Number [facility] [place] [address] * POC, GLUCOSE (06/15/2024 1:05 AM EST) [facility] Signature Glucometer, POC 116 65 - 199 mg/dL 06/15/2024 1:05 AM [facility] Comment:Supplemental ranges: <140 mg/dL before meals <180 mg/dL all other times of the day. Blood CAPILLARY BLOOD / Unknown 06/15/2024 1:05 AM EST 06/15/2024 1:05 AM EST Bobby Loja MD POINT OF CARE TEST O NIKA [facility] [place] [address] * POC, GLUCOSE (06/15/2024 12:16 AM EST) Glucometer, POC 135 65 - 199 mg/dL 06/15/2024 12:16 AM EST [facility] Comment:Supplemental ranges: <140 mg/dL before meals <180 mg/dL all other times of the day. Blood CAPILLARY BLOOD / Unknown 06/15/2024 12:16 AM EST 06/15/2024 12:16 AM EST Bobby Loja MD POINT OF CARE TEST O RDBECKIE Performing Organization Address City/[facility]/ZIP Co de Phone Number [facility] [place] [address] * Potassium (06/14/2024 11:28 PM EST) [facility] Potassium 4.1 3.5 - 5.0 mMol/L 06/14/2024 11:54 PM EST [facility] Blood VENOUS BLOOD SPECIMEN / Unknown Venipuncture / Unknown 06/14/2024 11:28 PM EST 06/14/2024 11:34 PM EST Bobby Loja MD CHEMISTRY ORDERABLES Performing Organization Address City/[facility]/ZIP Co de Phone Number [facility] [place] [address] * POC, GLUCOSE (06/14/2024 10:58 PM EST) Glucometer, POC 126 65 - 199 mg/dL 06/14/2024 10:59 PM EST [facility] Comment:Supplemental ranges: <140 mg/dL before meals <180 mg/dL all other times of the day. Blood CAPILLARY BLOOD / Unknown 06/14/2024 10:58 PM EST 06/14/2024 10:59 PM EST Bobby Loja MD POINT OF CARE TEST O NIKA [facility] [place] [address] * POC, GLUCOSE (06/14/2024 9:55 PM EST) Glucometer, POC 152 65 - 199 mg/dL 06/14/2024 9:56 PM EST [facility] Comment:Supplemental ranges: <140 mg/dL before meals <180 mg/dL all other times of the day. Blood CAPILLARY BLOOD / Unknown 06/14/2024 9:55 PM EST 06/14/2024 9:56 PM EST Bobby Loja MD POINT OF CARE TEST O NIKA Performing Organization Address City/[facility]/ZIP Co de Phone Number [facility] [place] [address] * POC, GLUCOSE (06/14/2024 8:54 PM EST) Glucometer, POC 151 65 - 199 mg/dL 06/14/2024 8:54 PM EST [facility] Comment:Supplemental ranges: <140 mg/dL before meals <180 mg/dL all other times of the day. Blood CAPILLARY BLOOD / Unknown 06/14/2024 8:54 PM EST 06/14/2024 8:54 PM EST Bobby Loja MD POINT OF CARE TEST O NIKA Performing Organization Address City/[facility]/ZIP Co de Phone Number [facility] [place] [address] * POC, GLUCOSE (06/14/2024 7:51 PM EST) Glucometer, POC 169 65 - 199 mg/dL 06/14/2024 7:52 PM EST [facility] Comment:Supplemental ranges: <140 mg/dL before meals <180 mg/dL all other times of the day. Blood CAPILLARY BLOOD / Unknown 06/14/2024 7:51 PM EST 06/14/2024 7:52 PM EST Bobby Loja MD POINT OF CARE TEST O RDERAPIETER Performing Organization Address [facility] Co de Phone Number [facility] [place] [address] * POC, GLUCOSE (06/14/2024 6:49 PM EST) Glucometer, POC 194 65 - 199 mg/dL 06/14/2024 6:50 PM EST [facility] Comment:Supplemental ranges: <140 mg/dL before meals <180 mg/dL all other times of the day. Blood CAPILLARY BLOOD / Unknown 06/14/2024 6:49 PM EST 06/14/2024 6:50 PM EST Bobby Loja MD POINT OF CARE TEST O RDERABLES Performing Organization Address [facility] Co de Phone Number [facility] [place] [address] * (ABNORMAL) Hemoglobin (06/14/2024 6:19 PM EST) Hemoglobin 13.1(L) 13.7 - 16.5 g/dL 06/14/2024 7:08 PM EST [facility] Blood VENOUS BLOOD SPECIMEN / Unknown Venipuncture / Unknown 06/14/2024 6:19 PM EST 06/14/2024 6:28 PM EST Bobby Loja MD HEMATOLOGY ORDERABLE S Performing Organization Address [facility] Co de Phone Number [facility] [place] [address] * Potassium (06/14/2024 6:19 PM EST) Potassium 3.9 3.5 - 5.0 mMol/L 06/14/2024 6:52 PM EST [facility] Blood VENOUS BLOOD SPECIMEN / Unknown Venipuncture / Unknown 06/14/2024 6:19 PM EST 06/14/2024 6:28 PM EST Bobby Loja MD CHEMISTRY ORDERABLES [facility] [place] [address] * (ABNORMAL) POC, GLUCOSE (06/14/2024 6:03 PM EST) [facility] Glucometer, POC 201(H) 65 - 199 mg/dL 06/14/2024 6:03 PM EST [facility] Comment:Supplemental ranges: <140 mg/dL before meals <180 mg/dL all other times of the day. Blood CAPILLARY BLOOD / Unknown 06/14/2024 6:03 PM EST 06/14/2024 6:03 PM EST Bobby Loja MD POINT OF CARE TEST O RDERABLES Performing Organization Address [facility]/ZIP Co de Phone Number [facility] [place] [address] * (ABNORMAL) Blood Gas, Arterial POC (06/14/2024 4:51 PM EST) [facility] pH, Arterial 7.32(L) 7.35 - 7.45 06/14/2024 4:52 PM [facility] PCO2, Arterial 46(H) 35 - 45 mmHg 06/14/2024 4:52 PM [facility] PO2, Arterial 85 85 - 104 mmHg 06/14/2024 4:52 PM [facility] Bicarbonate, Arterial 23.1 20.0 - 26.0 mmol/L 06/14/2024 4:52 PM [facility] Base Excess, Arterial -3.1(L) -3.0 - 3.0 mmol/L 06/14/2024 4:52 PM [facility] Hemoglobin, Arterial 14.3 13.7 - 16.5 g/dL 06/14/2024 4:52 PM [facility] Oxyhemoglobin, Arterial 94.7 94.0 - 97.0 % 06/14/2024 4:52 PM [facility] Carboxyhemoglobin , Arterial 0.6 % 06/14/2024 4:52 PM EST [facility] Comment: Nonsmokers: 0.5-1.5% COHB ?? Smokers: Variable ??but usually less than 10% ?? Toxic: 20-30% COHB ?? Lethal: Greater than 60% COHB Methemoglobin, Arterial 0.0 <=1.5 % 06/14/2024 4:52 PM EST [facility] Sodium, Arterial 138 135 - 145 mmol/L 06/14/2024 4:52 PM EST [facility] Potassium, Arterial 4.1 3.5 - 5.0 mmol/L 06/14/2024 4:52 PM [facility] Chloride, Arterial 106 98 - 107 mmol/L 06/14/2024 4:52 PM [facility] Lactate, Arterial 1.3 0.5 - 2.2 mmol/L 06/14/2024 4:52 PM [facility] Fraction of Inspired Oxygen 40 % 06/14/2024 4:52 PM [facility] PF Ratio 213 Ratio 06/14/2024 4:52 PM [facility] Comment:PF ratio calculated using the non-temperature corrected pO2 result. IONIZED CALCIUM, ARTERIAL 1.16 1.15 - 1.33 mmol/L 06/14/2024 4:52 PM [facility] Glucose, Arterial 192 65 - 199 mg/dL 06/14/2024 4:52 PM EST [facility] Comment:Glucose Concentratio n >=200 mg/dL plus symptoms is consistent with Diabetes Mellitus. Blood ARTERIAL BLOOD / Unknown 06/14/2024 4:51 PM EST 06/14/2024 4:52 PM EST Bobby Loja MD POINT OF CARE TEST O RDERABLES [facility] [place] [address] * POC, GLUCOSE (06/14/2024 4:00 PM EST) [facility] Signature Glucometer, POC 184 65 - 199 mg/dL 06/14/2024 4:01 PM EST [facility] Comment:Supplemental ranges: <140 mg/dL before meals <180 mg/dL all other times of the day. Blood CAPILLARY BLOOD / Unknown 06/14/2024 4:00 PM EST 06/14/2024 4:01 PM EST Bobby Loja MD POINT OF CARE TEST O RDERABLES [facility] [place] [address] * XR Chest One View (06/14/2024 3:05 PM EST) WORKSTATION ID [id number] RAD Anatomical Region Laterality Modality Chest N/A [...] who have questions please contact the health direct support professional caregiver that requested your imaging first. ? Electronically signed by: Stuart Aponte MD, [facility] ??([phone]), at 06/14/2024 4:07 PM Narrative 06/14/2024 4:07 [...] patients who have questions please contactthe health direct support professional caregiver that requested your imaging first. Electronically signed by: Stuart Aponte MD, [facility]([phone]), at 06/14/2024 4:07 PM Bobby Loja MD IMG DX ORDERABLES * (ABNORMAL) Blood Gas, Arterial POC (06/14/2024 2:52 PM EST) pH, Arterial 7.28(LLL) 7.35 - 7.45 06/14/2024 2:53 PM [facility] PCO2, Arterial 50(H) 35 - 45 mmHg 06/14/2024 2:53 PM [facility] PO2, Arterial 510(H) 85 - 104 mmHg 06/14/2024 2:53 PM [facility] Bicarbonate, Arterial 22.8 20.0 - 26.0 mmol/L 06/14/2024 2:53 PM [facility] Base Excess, Arterial -4.0(L) -3.0 - 3.0 mmol/L 06/14/2024 2:53 PM [facility] Hemoglobin, Arterial 13.8 13.7 - 16.5 g/dL 06/14/2024 2:53 PM [facility] Oxyhemoglobin, Arterial 99.3(H) 94.0 - 97.0 % 06/14/2024 2:53 PM [facility] Carboxyhemoglobin , Arterial 0.6 % 06/14/2024 2:53 PM [facility] Comment: Nonsmokers: 0.5-1.5% COHB ?? Smokers: Variable ??but usually less than 10% ?? Toxic: 20-30% COHB ?? Lethal: Greater than 60% COHB Methemoglobin, Arterial 0.1 <=1.5 % 06/14/2024 2:53 PM [facility] Sodium, Arterial 138 135 - 145 mmol/L 06/14/2024 2:53 PM [facility] Potassium, Arterial 4.2 3.5 - 5.0 mmol/L 06/14/2024 2:53 PM [facility] Chloride, Arterial 106 98 - 107 mmol/L 06/14/2024 2:53 PM [facility] Lactate, Arterial 1.1 0.5 - 2.2 mmol/L 06/14/2024 2:53 PM [facility] Fraction of Inspired Oxygen 100 % 06/14/2024 2:53 PM EST [facility] PF Ratio 510 Ratio 06/14/2024 2:53 PM EST [facility] Comment:PF ratio calculated using the non-temperature corrected pO2 result. IONIZED CALCIUM, ARTERIAL 1.15 1.15 - 1.33 mmol/L 06/14/2024 2:53 PM EST [facility] Glucose, Arterial 169 65 - 199 mg/dL 06/14/2024 2:53 PM EST [facility] Comment:Glucose Concentratio n >=200 mg/dL plus symptoms is consistent with Diabetes Mellitus. Blood ARTERIAL BLOOD / Unknown 06/14/2024 2:52 PM EST 06/14/2024 2:53 PM EST Bobby Loja MD POINT OF CARE TEST O RDERABLES Performing Organization Address [facility] Co de Phone Number [facility] [place] [address] * EKG 12 Lead (06/14/2024 2:46 PM EST) Ventricular rate 80 BPM MUSE SYSTEM Atrial Rate 80 BPM MUSE SYSTEM P-R Interval 120 ms MUSE SYSTEM QRS Duration 108 ms MUSE SYSTEM Q-T Interval 454 ms MUSE SYSTEM QTC Calculated (Bezet) 523 ms MUSE SYSTEM Calculated P [place] 70 degrees MUSE SYSTEM Calculated R [place] 56 degrees MUSE SYSTEM Calculated T [place] 50 degrees MUSE SYSTEM INTERPRETATION AV dual-paced rhythm Abnormal ECG When compared with ECG of 03-JUN-2024 01:45, Vent. rate has increased BY ??17 BPM Confirmed by MD Marisol, Shaheen ([id number]) on 06/15/2024 1:57:23 PM MUSE SYSTEM 06/14/2024 2:46 PM EST 06/15/2024 1:57 PM EST Bobby Loja MD ECG ORDERABLES Performing Organization Address City/[facility]/ZIP Co de Phone Number MUSE SYSTEM * Prepare RBC (06/14/2024 2:27 PM EST) Status Information Returned [facility] Product Identification RBC [facility] Unit [facility] [id number] [facility] Product Code [id number] [facility] Unit Blood Type OPOS [facility] Specimen Expiration Date [facility] Volulme 350 [facility] Issue Date / Time [facility] Status Information Returned [facility] Product Identification RBC [facility] Unit [facility] [id number] [facility] Product [facility] [id number] [facility] Unit Blood Type OPOS [facility] Specimen Expiration Date [facility] Volulme 350 [facility] Issue Date / Time [facility] Blood 06/14/2024 6:2 5 AM EST Haja Byrnes MD BLOOD BANK PRODUCT O RDERABLES [facility] [place] [place] [address] * (ABNORMAL) Cooximetry, POC (06/14/2024 1:52 PM EST) pO2, Coox 58 mmHg 06/14/2024 1:55 PM EST [facility] Hemoglobin, Coox 12.6(L) 13.7 - 16.5 g/dL 06/14/2024 1:55 PM EST [facility] Oxyhemoglobin, Coox 85.5 % 06/14/2024 1:55 PM EST [facility] Carboxyhemoglo bin, Coox 0.3 % 06/14/2024 1:55 PM EST [facility] Comment: Nonsmokers: 0.5-1.5% COHB ?? Smokers: Variable ??but usually less than 10% ?? Toxic: 20-30% COHB ?? Lethal: Greater than 60% COHB Methemoglobin, Coox 0.6 <=1.5 % 06/14/2024 1:55 PM EST [facility] Blood (Mixed Venous) 06/14/2024 1:52 PM EST 06/14/2024 1:55 PM EST Haja Byrnes MD POINT OF CARE TEST O NIKA [facility] [place] [address] * (ABNORMAL) Blood Gas, Arterial POC (06/14/2024 12:47 PM EST) pH, Arterial 7.33(L) 7.35 - 7.45 06/14/2024 12:48 PM EST [facility] PCO2, Arterial 46(H) 35 - 45 mmHg 06/14/2024 12:48 PM [facility] PO2, Arterial 358(H) 85 - 104 mmHg 06/14/2024 12:48 PM [facility] Bicarbonate, Arterial 23.8 20.0 - 26.0 mmol/L 06/14/2024 12:48 PM [facility] Base Excess, Arterial -2.1 -3.0 - 3.0 mmol/L 06/14/2024 12:48 PM [facility] Hemoglobin, Arterial 11.7(L) 13.7 - 16.5 g/dL 06/14/2024 12:48 PM [facility] Oxyhemoglobin, Arterial 98.7(H) 94.0 - 97.0 % 06/14/2024 12:48 PM [facility] Carboxyhemoglobin , Arterial 0.3 % 06/14/2024 12:48 PM [facility] Comment: Nonsmokers: 0.5-1.5% COHB ?? Smokers: Variable ??but usually less than 10% ?? Toxic: 20-30% COHB ?? Lethal: Greater than 60% COHB Methemoglobin, Arterial 0.5 <=1.5 % 06/14/2024 12:48 PM EST [facility] Sodium, Arterial 135 135 - 145 mmol/L 06/14/2024 12:48 PM [facility] Potassium, Arterial 5.0 3.5 - 5.0 mmol/L 06/14/2024 12:48 PM EST [facility] Chloride, Arterial 106 98 - 107 mmol/L 06/14/2024 12:48 PM EST [facility] Lactate, Arterial 1.4 0.5 - 2.2 mmol/L 06/14/2024 12:48 PM EST [facility] IONIZED CALCIUM, ARTERIAL 1.09(L) 1.15 - 1.33 mmol/L 06/14/2024 12:48 PM EST [facility] Glucose, Arterial 157 65 - 199 mg/dL 06/14/2024 12:48 PM EST [facility] Comment:Glucose Concentratio n >=200 mg/dL plus symptoms is consistent with Diabetes Mellitus. Blood ARTERIAL BLOOD / Unknown 06/14/2024 12:47 PM EST 06/14/2024 12:48 PM EST Haja Byrnes MD POINT OF CARE TEST O RDERABLES [facility] [place] [address] * (ABNORMAL) Cooximetry, POC (06/14/2024 12:42 PM EST) pO2, Coox 71 mmHg 06/14/2024 12:45 PM [facility] Hemoglobin, Coox 11.6(L) 13.7 - 16.5 g/dL 06/14/2024 12:45 PM EST [facility] Oxyhemoglobin, Coox 91.5 % 06/14/2024 12:45 PM EST [facility] Carboxyhemoglo bin, Coox 0.3 % 06/14/2024 12:45 PM EST [facility] Comment: Nonsmokers: 0.5-1.5% COHB ?? Smokers: Variable ??but usually less than 10% ?? Toxic: 20-30% COHB ?? Lethal: Greater than 60% COHB Methemoglobin, Coox 0.4 <=1.5 % 06/14/2024 12:45 PM EST [facility] Blood (Mixed Venous) 06/14/2024 12:42 PM EST 06/14/2024 12:45 PM EST Haja Byrnes MD POINT OF CARE TEST O RDERABLES Performing Organization Address City/[facility]/ZIP Co de Phone Number [facility] [place] [address] * (ABNORMAL) Platelet count (06/14/2024 12:30 PM EST) Platelet 73(L) 145 - 357 x10(3)/mcL 06/14/2024 12:54 PM EST [facility] Blood ARTERIAL BLOOD / Unknown 06/14/2024 12:30 PM EST Comment:Pre-op diagnosis: CAD Bobby Loja MD HEMATOLOGY ORDERABLE S Performing Organization Address [facility] Co de Phone Number [facility] [place] [address] * (ABNORMAL) Hemoglobin and Hematocrit, blood (06/14/2024 12:30 PM EST) Hemoglobin 10.9(L) 13.7 - 16.5 g/dL 06/14/2024 12:54 PM EST [facility] Hematocrit 33.5(L) 40.5 - 48.5 % 06/14/2024 12:54 PM EST [facility] Comment:This result has been called to Danielle López by Satya Page on 06/14/2024 12:53:56, and has been read back. Blood ARTERIAL BLOOD / Unknown 06/14/2024 12:30 PM EST 06/14/2024 12:42 PM EST Comment:Pre-op diagnosis: CAD Bobby Loja MD HEMATOLOGY ORDERABLE S Performing Organization Address [facility]/ZIP Co de Phone Number [facility] [place] [address] * APTT (06/14/2024 12:30 PM EST) Partial Thromboplastin Time 31 25 - 37 sec 06/14/2024 12:57 PM EST [facility] Comment: The PTT is NOT appropriate for heparin monitoring. Use the Anti-Xa level for heparin monitoring (HEP UFH) or LMWH monitoring (HEP LMW). A PTT less than 37 seconds generally indicates adequate hemostasis. Blood ARTERIAL BLOOD / Unknown 06/14/2024 12:30 PM EST 06/14/2024 12:42 PM EST Comment:Pre-op diagnosis: CAD Bobby Loja MD HEMATOLOGY ORDERABLE S Performing Organization Address [facility] Co de Phone Number [facility] [place] [address] * (ABNORMAL) Prothrombin Time (06/14/2024 12:30 PM EST) Prothrombin Time 16.8(H) 9.4 - 12.5 sec 06/14/2024 12:57 PM EST [facility] International Normalization Ratio 1.5 <=4.9 06/14/2024 12:57 PM EST [facility] Comment: An INR < [...] MD HEMATOLOGY ORDERABLE S Performing Organization Address [facility] Co de Phone Number [facility] [place] [address] * Fibrinogen (06/14/2024 12:30 PM EST) Fibrinogen 211 200 - 393 mg/dL 06/14/2024 12:57 PM [facility] Comment: A fibrinogen level >100 mg/dL is adequate for hemostasis in most patients without underlying bleeding disorders. Blood ARTERIAL BLOOD / Unknown 06/14/2024 12:30 PM EST 06/14/2024 12:42 PM EST Comment:Pre-op diagnosis: CAD Bobby Loja MD HEMATOLOGY ORDERABLE S [facility] [place] [address] * (ABNORMAL) Blood Gas, Arterial POC (06/14/2024 12:15 PM EST) pH, Arterial 7.38 7.35 - 7.45 06/14/2024 12:16 PM [facility] PCO2, Arterial 40 35 - 45 mmHg 06/14/2024 12:16 PM [facility] Bicarbonate, Arterial 22.9 20.0 - 26.0 mmol/L 06/14/2024 12:16 PM [facility] Base Excess, Arterial -2.3 -3.0 - 3.0 mmol/L 06/14/2024 12:16 PM [facility] Hemoglobin, Arterial 11.4(L) 13.7 - 16.5 g/dL 06/14/2024 12:16 PM [facility] Oxyhemoglobin, Arterial 98.8(H) 94.0 - 97.0 % 06/14/2024 12:16 PM [facility] Carboxyhemoglobin , Arterial 0.3 % 06/14/2024 12:16 PM [facility] Comment: Nonsmokers: 0.5-1.5% COHB ?? Smokers: Variable ??but usually less than 10% ?? Toxic: 20-30% COHB ?? Lethal: Greater than 60% COHB Methemoglobin, Arterial 0.6 <=1.5 % 06/14/2024 12:16 PM [facility] Sodium, Arterial 134(L) 135 - 145 mmol/L 06/14/2024 12:16 PM [facility] Potassium, Arterial 5.4(H) 3.5 - 5.0 mmol/L 06/14/2024 12:16 PM [facility] Chloride, Arterial 105 98 - 107 mmol/L 06/14/2024 12:16 PM [facility] Lactate, Arterial 1.3 0.5 - 2.2 mmol/L 06/14/2024 12:16 PM [facility] IONIZED CALCIUM, ARTERIAL 1.08(L) 1.15 - 1.33 mmol/L 06/14/2024 12:16 PM [facility] Glucose, Arterial 161 65 - 199 mg/dL 06/14/2024 12:16 PM [facility] Comment:Glucose Concentratio n >=200 mg/dL plus symptoms is consistent with Diabetes Mellitus. Blood ARTERIAL BLOOD / Unknown 06/14/2024 12:15 PM EST 06/14/2024 12:16 PM EST Haja Byrnes MD POINT OF CARE TEST O RDERABLES [facility] [place] [address] * (ABNORMAL) Blood Gas, Arterial POC (06/14/2024 11:51 AM EST) pH, Arterial 7.40 7.35 - 7.45 06/14/2024 11:52 AM [facility] PCO2, Arterial 41 35 - 45 mmHg 06/14/2024 11:52 AM [facility] PO2, Arterial 332(H) 85 - 104 mmHg 06/14/2024 11:52 AM [facility] Bicarbonate, Arterial 24.7 20.0 - 26.0 mmol/L 06/14/2024 11:52 AM [facility] Base Excess, Arterial -0.1 -3.0 - 3.0 mmol/L 06/14/2024 11:52 AM [facility] Hemoglobin, Arterial 11.1(L) 13.7 - 16.5 g/dL 06/14/2024 11:52 AM [facility] Oxyhemoglobin, Arterial 98.7(H) 94.0 - 97.0 % 06/14/2024 11:52 AM [facility] Carboxyhemoglobin , Arterial 0.3 % 06/14/2024 11:52 AM [facility] Comment: Nonsmokers: 0.5-1.5% COHB ?? Smokers: Variable ??but usually less than 10% ?? Toxic: 20-30% COHB ?? Lethal: Greater than 60% COHB Methemoglobin, Arterial 0.4 <=1.5 % 06/14/2024 11:52 AM [facility] Sodium, Arterial 135 135 - 145 mmol/L 06/14/2024 11:52 AM [facility] Potassium, Arterial 5.7(H) 3.5 - 5.0 mmol/L 06/14/2024 11:52 AM [facility] Chloride, Arterial 105 98 - 107 mmol/L 06/14/2024 11:52 AM [facility] Lactate, Arterial 1.2 0.5 - 2.2 mmol/L 06/14/2024 11:52 AM [facility] IONIZED CALCIUM, ARTERIAL 1.10(L) 1.15 - 1.33 mmol/L 06/14/2024 11:52 AM [facility] Glucose, Arterial 148 65 - 199 mg/dL 06/14/2024 11:52 AM [facility] Comment:Glucose Concentratio n >=200 mg/dL plus symptoms is consistent with Diabetes Mellitus. Blood ARTERIAL BLOOD / Unknown 06/14/2024 11:51 AM EST 06/14/2024 11:52 AM EST Haja Byrnes MD POINT OF CARE TEST O RDERABLES [facility] [place] [address] * (ABNORMAL) Blood Gas, Arterial POC (06/14/2024 11:27 AM [facility]) pH, Arterial 7.38 7.35 - 7.45 06/14/2024 11:28 AM [facility] PCO2, Arterial 37 35 - 45 mmHg 06/14/2024 11:28 AM [facility] PO2, Arterial 348(H) 85 - 104 mmHg 06/14/2024 11:28 AM [facility] Bicarbonate, Arterial 21.1 20.0 - 26.0 mmol/L 06/14/2024 11:28 AM [facility] Base Excess, Arterial -4.1(L) -3.0 - 3.0 mmol/L 06/14/2024 11:28 AM [facility] Hemoglobin, Arterial 11.0(L) 13.7 - 16.5 g/dL 06/14/2024 11:28 AM [facility] Oxyhemoglobin, Arterial 98.7(H) 94.0 - 97.0 % 06/14/2024 11:28 AM [facility] Carboxyhemoglobin , Arterial 0.3 % 06/14/2024 11:28 AM [facility] Comment: Nonsmokers: 0.5-1.5% COHB ?? Smokers: Variable ??but usually less than 10% ?? Toxic: 20-30% COHB ?? Lethal: Greater than 60% COHB Methemoglobin, Arterial 0.4 <=1.5 % 06/14/2024 11:28 AM [facility] Sodium, Arterial 132(L) 135 - 145 mmol/L 06/14/2024 11:28 AM [facility] Potassium, Arterial 5.8(H) 3.5 - 5.0 mmol/L 06/14/2024 11:28 AM [facility] Chloride, Arterial 105 98 - 107 mmol/L 06/14/2024 11:28 AM [facility] Lactate, Arterial 1.1 0.5 - 2.2 mmol/L 06/14/2024 11:28 AM EST [facility] IONIZED CALCIUM, ARTERIAL 1.03(L) 1.15 - 1.33 mmol/L 06/14/2024 11:28 AM EST [facility] Glucose, Arterial 147 65 - 199 mg/dL 06/14/2024 11:28 AM EST [facility] Comment:Glucose Concentratio n >=200 mg/dL plus symptoms is consistent with Diabetes Mellitus. Blood ARTERIAL BLOOD / Unknown 06/14/2024 11:27 AM EST 06/14/2024 11:28 AM EST Haja Byrnes MD POINT OF CARE TEST O RDERABLES Performing Organization Address City/[facility]/ZIP Co de Phone Number [facility] [place] [address] * (ABNORMAL) Scan, Peripheral Blood (06/14/2024 11:23 AM EST) RBC Morphology Abnormal 06/14/2024 11:59 AM [facility] Platelet Estimate Decreased(A) Normal 06/14/2024 11:59 AM EST [facility] Aretha cells 1-5 /HPF 06/14/2024 11:59 AM [facility] Blood ARTERIAL BLOOD / Unknown 06/14/2024 11:23 AM EST 06/14/2024 11:27 AM EST Bobby Loja MD HEMATOLOGY ORDERABLE S [facility] [place] [address] * (ABNORMAL) Platelet count (06/14/2024 11:23 AM EST) Platelet 86(L) 145 - 357 x10(3)/mcL 06/14/2024 11:59 AM EST [facility] Blood ARTERIAL BLOOD / Unknown 06/14/2024 11:23 AM EST Comment:Pre-op diagnosis: CAD Bobby Loja MD HEMATOLOGY ORDERABLE S [facility] [place] [address] * (ABNORMAL) Hemoglobin and Hematocrit, blood (06/14/2024 11:23 AM EST) Hemoglobin 9.8(L) 13.7 - 16.5 g/dL 06/14/2024 11:59 AM EST [facility] Comment:This result has been called to Danielle López by Satya Page on 06/14/2024 11:58:33. Hematocrit 30.5(L) 40.5 - 48.5 % 06/14/2024 11:59 AM EST [facility] Comment:This result has been called to Danielle López by Satya Page on 06/14/2024 11:58:40, and has been read back. Blood ARTERIAL BLOOD / Unknown 06/14/2024 11:23 AM EST 06/14/2024 11:27 AM EST Comment:Pre-op diagnosis: CAD Bobby Loja MD HEMATOLOGY ORDERABLE S [facility] [place] [address] * (ABNORMAL) Blood Gas, Arterial POC (06/14/2024 10:58 AM EST) pH, Arterial 7.38 7.35 - 7.45 06/14/2024 10:59 AM EST [facility] PCO2, Arterial 43 35 - 45 mmHg 06/14/2024 10:59 AM EST [facility] PO2, Arterial 401(H) 85 - 104 mmHg 06/14/2024 10:59 AM EST [facility] Bicarbonate, Arterial 24.8 20.0 - 26.0 mmol/L 06/14/2024 10:59 AM EST [facility] Base Excess, Arterial -0.5 -3.0 - 3.0 mmol/L 06/14/2024 10:59 AM EST [facility] Hemoglobin, Arterial 11.9(L) 13.7 - 16.5 g/dL 06/14/2024 10:59 AM [facility] Oxyhemoglobin, Arterial 99.0(H) 94.0 - 97.0 % 06/14/2024 10:59 AM [facility] Carboxyhemoglobin , Arterial 0.3 % 06/14/2024 10:59 AM [facility] Comment: Nonsmokers: 0.5-1.5% COHB ?? Smokers: Variable ??but usually less than 10% ?? Toxic: 20-30% COHB ?? Lethal: Greater than 60% COHB Methemoglobin, Arterial 0.3 <=1.5 % 06/14/2024 10:59 AM [facility] Sodium, Arterial 128(L) 135 - 145 mmol/L 06/14/2024 10:59 AM [facility] Potassium, Arterial 6.6(HHH) 3.5 - 5.0 mmol/L 06/14/2024 10:59 AM [facility] Chloride, Arterial 99 98 - 107 mmol/L 06/14/2024 10:59 AM [facility] Lactate, Arterial 1.3 0.5 - 2.2 mmol/L 06/14/2024 10:59 AM [facility] IONIZED CALCIUM, ARTERIAL 1.00(L) 1.15 - 1.33 mmol/L 06/14/2024 10:59 AM [facility] Glucose, Arterial 155 65 - 199 mg/dL 06/14/2024 10:59 AM [facility] Comment:Glucose Concentratio n >=200 mg/dL plus symptoms is consistent with Diabetes Mellitus. Blood ARTERIAL BLOOD / Unknown 06/14/2024 10:58 AM EST 06/14/2024 10:59 AM EST Haja Byrnes MD POINT OF CARE TEST O RDERABLES [facility] [place] [address] * (ABNORMAL) Blood Gas, Arterial POC (06/14/2024 10:26 AM EST) pH, Arterial 7.29(LLL) 7.35 - 7.45 06/14/2024 10:27 AM [facility] PCO2, Arterial 43 35 - 45 mmHg 06/14/2024 10:27 AM [facility] PO2, Arterial 369(H) 85 - 104 mmHg 06/14/2024 10:27 AM [facility] Bicarbonate, Arterial 19.9(L) 20.0 - 26.0 mmol/L 06/14/2024 10:27 AM [facility] Base Excess, Arterial -6.7(L) -3.0 - 3.0 mmol/L 06/14/2024 10:27 AM [facility] Hemoglobin, Arterial 12.6(L) 13.7 - 16.5 g/dL 06/14/2024 10:27 AM [facility] Oxyhemoglobin, Arterial 99.1(H) 94.0 - 97.0 % 06/14/2024 10:27 AM [facility] Carboxyhemoglobin , Arterial 0.1 % 06/14/2024 10:27 AM [facility] Comment: Nonsmokers: 0.5-1.5% COHB ?? Smokers: Variable ??but usually less than 10% ?? Toxic: 20-30% COHB ?? Lethal: Greater than 60% COHB Methemoglobin, Arterial 0.4 <=1.5 % 06/14/2024 10:27 AM [facility] Sodium, Arterial 129(L) 135 - 145 mmol/L 06/14/2024 10:27 AM [facility] Potassium, Arterial 5.0 3.5 - 5.0 mmol/L 06/14/2024 10:27 AM [facility] Chloride, Arterial 99 98 - 107 mmol/L 06/14/2024 10:27 AM [facility] Lactate, Arterial 0.9 0.5 - 2.2 mmol/L 06/14/2024 10:27 AM [facility] IONIZED CALCIUM, ARTERIAL 1.05(L) 1.15 - 1.33 mmol/L 06/14/2024 10:27 AM [facility] Glucose, Arterial 149 65 - 199 mg/dL 06/14/2024 10:27 AM [facility] Comment:Glucose Concentratio n >=200 mg/dL plus symptoms is consistent with Diabetes Mellitus. Blood ARTERIAL BLOOD / Unknown 06/14/2024 10:26 AM EST 06/14/2024 10:27 AM EST Haja Byrnes MD POINT OF CARE TEST O RDERABLES [facility] [place] [address] * (ABNORMAL) Blood Gas, Arterial POC (06/14/2024 10:25 AM EST) pH, Arterial 7.26(LLL) 7.35 - 7.45 06/14/2024 10:26 AM [facility] PCO2, Arterial 48(H) 35 - 45 mmHg 06/14/2024 10:26 AM [facility] Bicarbonate, Arterial 21.2 20.0 - 26.0 mmol/L 06/14/2024 10:26 AM [facility] Base Excess, Arterial -5.8(L) -3.0 - 3.0 mmol/L 06/14/2024 10:26 AM [facility] Hemoglobin, Arterial 12.5(L) 13.7 - 16.5 g/dL 06/14/2024 10:26 AM [facility] Oxyhemoglobin, Arterial 82.3(L) 94.0 - 97.0 % 06/14/2024 10:26 AM [facility] Carboxyhemoglobin , Arterial 0.5 % 06/14/2024 10:26 AM [facility] Comment: Nonsmokers: 0.5-1.5% COHB ?? Smokers: Variable ??but usually less than 10% ?? Toxic: 20-30% COHB ?? Lethal: Greater than 60% COHB Methemoglobin, Arterial 0.5 <=1.5 % 06/14/2024 10:26 AM [facility] Sodium, Arterial 131(L) 135 - 145 mmol/L 06/14/2024 10:26 AM [facility] Potassium, Arterial 4.6 3.5 - 5.0 mmol/L 06/14/2024 10:26 AM [facility] Chloride, Arterial 103 98 - 107 mmol/L 06/14/2024 10:26 AM [facility] Lactate, Arterial 0.8 0.5 - 2.2 mmol/L 06/14/2024 10:26 AM [facility] IONIZED CALCIUM, ARTERIAL 0.91(LLL) 1.15 - 1.33 mmol/L 06/14/2024 10:26 AM [facility] Glucose, Arterial 148 65 - 199 mg/dL 06/14/2024 10:26 AM [facility] Comment:Glucose Concentratio n >=200 mg/dL plus symptoms is consistent with Diabetes Mellitus. Blood ARTERIAL BLOOD / Unknown 06/14/2024 10:25 AM EST 06/14/2024 10:26 AM EST Haja Byrnes MD POINT OF CARE TEST O RDERABLES Performing Organization Address City/State/[facility] Co de Phone Number [facility] [place] [address] * Surgical Pathology (06/14/2024 9:53 AM EST) Case Report Surgical Pathology Report ? Case: [id number] ? Authorizing Provider: ??Bobby Loja MD ? Collected: ? 06/14/2024 0953 ? Ordering Location: ? Main Operating Room [facility] ?? Received: ?06/14/2024 1413 ? [facility] ? [facility] ? Pathologist: ? Sandra Salas, MD ? Specimens: ?? A) - Soft Tissue Mass, mediastinal mass ? B) - Heart, Atrial Appendage, Left ? 06/18/2024 10:18 AM EST [facility] Final Diagnosis A. Soft Tissue Mass, Mediastinal Mass, Excision: - Atrophic thymic tissue B. Heart, Atrial Appendage, Left, Excision: - Mild myocyte hypertrophy 06/18/2024 10:18 AM [facility] Clinical Information A. Soft Tissue Mass, mediastinal mass Soft tissue mass Mediastinal mass B. Heart, Atrial Appendage, Left, *Other - as specified in Clinical Information MARIALUISA 06/18/2024 10:18 AM [facility] Gross Description A. Soft Tissue Mass, mediastinal mass. A - Labeled/Fixative : Mediastinal mass, fresh. Quantity/Size: Single, 7.2 x 5.3 x 1.2 cm. Tissue Description: Unoriented, intact portion of soft, rodriguez-yellow, lobulated tissue. The cut surface is homogenously pale-rodriguez, yellow and lobulated. No lesions or nodules are identified. Inking: External surface inked black Sections/Process ing: [employer] sections in 4 cassettes labeled A1-A4. cmk B. Heart, Atrial Appendage, Left, . B - Labeled/Fixative : Heart, atrial appendage, left, fresh. Quantity/Size: Single, 3.3 x 1.5 x 0.8 cm. Tissue Description: Portion of heart tissue consisting of rodriguez-white, semitranslucent, smooth endocardium with rodriguez-brown muscular myocardium and thin translucent epicardium with adherent adipose tissue. No areas of discoloration identified. 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 cmk 06/18/2024 10:18 AM [facility] Result Note Routine 06/18/2024 10:18 AM [facility] Tissue SOFT TISSUE MASS / Unknown 06/14/2024 9:53 AM EST 06/14/2024 2:13 PM EST Comment:Mediastinal mass Tissue specimen (specimen) LEFT ATRIAL APPENDAGE ABSENT / Unknown 06/14/2024 10:54 AM EST 06/14/2024 2:13 PM EST Comment:MARIALUISA Bobby Loja MD PATHOLOGY/CYTOLOGY O RDERABLES [facility] [place] [address] * Cooximetry, POC (06/14/2024 9:00 AM EST) pO2, Coox 57 mmHg 06/14/2024 9:04 AM [facility] PO2 Corrected, COOX 50 mmHg 06/14/2024 9:04 AM [facility] Hemoglobin, Coox 14.3 13.7 - 16.5 g/dL 06/14/2024 9:04 AM [facility] Oxyhemoglobin, Coox 86.2 % 06/14/2024 9:04 AM [facility] Carboxyhemoglobi n, Coox 0.3 % 06/14/2024 9:04 AM [facility] Comment: Nonsmokers: 0.5-1.5% COHB ?? Smokers: Variable ??but usually less than 10% ?? Toxic: 20-30% COHB ?? Lethal: Greater than 60% COHB Methemoglobin, Coox 0.3 <=1.5 % 06/14/2024 9:04 AM [facility] Temperature Coox 35.2 C 06/14/20 24 9:04 AM [facility] Blood (Mixed Venous) 06/14/2024 9:00 AM EST 06/14/2024 9:04 AM EST Haja Byrnes MD POINT OF CARE TEST O RDERABLES Performing Organization Address City/State/[facility] Co de Phone Number [facility] [place] [address] * (ABNORMAL) Blood Gas, Arterial POC (06/14/2024 8:39 AM EST) pH, Arterial 7.37 7.35 - 7.45 06/14/2024 8:40 AM [facility] PCO2, Arterial 42 35 - 45 mmHg 06/14/2024 8:40 AM [facility] PO2, Arterial 341(H) 85 - 104 mmHg 06/14/2024 8:40 AM [facility] Bicarbonate, Arterial 23.7 20.0 - 26.0 mmol/L 06/14/2024 8:40 AM [facility] Base Excess, Arterial -1.6 -3.0 - 3.0 mmol/L 06/14/2024 8:40 AM [facility] Hemoglobin, Arterial 15.2 13.7 - 16.5 g/dL 06/14/2024 8:40 AM [facility] Oxyhemoglobin, Arterial 99.2(H) 94.0 - 97.0 % 06/14/2024 8:40 AM [facility] Carboxyhemoglobin , Arterial 0.1 % 06/14/2024 8:40 AM [facility] Comment: Nonsmokers: 0.5-1.5% COHB ?? Smokers: Variable ??but usually less than 10% ?? Toxic: 20-30% COHB ?? Lethal: Greater than 60% COHB Methemoglobin, Arterial 0.3 <=1.5 % 06/14/2024 8:40 AM [facility] Sodium, Arterial 136 135 - 145 mmol/L 06/14/2024 8:40 AM [facility] Potassium, Arterial 4.2 3.5 - 5.0 mmol/L 06/14/2024 8:40 AM [facility] Chloride, Arterial 102 98 - 107 mmol/L 06/14/2024 8:40 AM [facility] Lactate, Arterial 0.9 0.5 - 2.2 mmol/L 06/14/2024 8:40 AM [facility] IONIZED CALCIUM, ARTERIAL 1.17 1.15 - 1.33 mmol/L 06/14/2024 8:40 AM [facility] Glucose, Arterial 121 65 - 199 mg/dL 06/14/2024 8:40 AM [facility] Comment:Glucose Concentratio n >=200 mg/dL plus symptoms is consistent with Diabetes Mellitus. Blood ARTERIAL BLOOD / Unknown 06/14/2024 8:39 AM EST 06/14/2024 8:40 AM EST Haja Byrnes MD POINT OF CARE TEST O RDERABLES [facility] [place] [address] * Transesophageal Echo/OR (06/14/2024 7:20 AM EST) Anatomical Region Laterality Modality Cardiac Other 06/14/2024 7:20 AM EST Narrative 06/14/2024 4:36 PM EST Version: 2 Study ID: [id number] [place] [address] ?OR Transesophageal Echo Report Name: GEORGE MEHTA [...] of this mass after consultation with other office bookkeeper experts and the decision was made by [...] MD - 06/14/2024 Version: 2 Study ID: [id number] [address] [place] [id number] ORTransesophageal Echo Report Name: GEORGE MEHTA Study Date: 06/14/2024,7: 20 AM Patient Location:^[id number]^A : 1955 Age: 69 Years Gender: Male [...] of this mass after consultation with other office bookkeeper experts and thedecision was made by surgeon [...] * POC, GLUCOSE (06/14/2024 7:11 AM EST) [facility] Signature Glucometer, POC 111 65 - 199 mg/dL 06/14/2024 7:12 AM EST [facility] Comment:Supplemental ranges: <140 mg/dL before meals <180 mg/dL all other times of the day. Blood CAPILLARY BLOOD / Unknown 06/14/2024 7:11 AM EST 06/14/2024 7:12 AM EST Haja Byrnes MD POINT OF CARE TEST Abimael MAHER Performing Organization Address [facility] Co de Phone Number [facility] [place] [address] * POC, GLUCOSE (06/14/2024 4:30 AM EST) Glucometer, POC 85 65 - 199 mg/dL 06/14/2024 4:30 AM EST [facility] Comment:Supplemental ranges: <140 mg/dL before meals <180 mg/dL all other times of the day. Blood CAPILLARY BLOOD / Unknown 06/14/2024 4:30 AM EST 06/14/2024 4:30 AM EST Haja Byrnes MD POINT OF CARE TEST Abimael MAHER Performing Organization Address [facility] de Phone Number [facility] [place] [address] * (ABNORMAL) Heparin (unfractionated) Level (06/14/2024 12:12 AM EST) UF Heparin 1.02(HH[facility]) IU/mL 06/14/2024 12:46 AM EST [facility] Comment: Heparin (anti-Xa) levels [...] EST Shahnaz Scanlon MD HEMATOLOGY ORDERABLE S [facility] [place] [address] * (ABNORMAL) CBC (with Diff) (06/14/2024 12:12 AM EST) White Blood Cell 10.51(H) 4.00 - 9.50 x10(3)/mc L 06/14/2024 12:38 AM [facility] Red Blood Cell 4.99 4.58 - 5.54 x10(6)/mc L 06/14/2024 12:38 AM [facility] Hemoglobin 14.9 13.7 - 16.5 g/dL 06/14/2024 12:38 AM [facility] Hematocrit 45.9 40.5 - 48.5 % 06/14/2024 12:38 AM [facility] Mean Cell Volume 92.0 82.9 - 93.1 fL 06/14/2024 12:38 AM [facility] Mean Cell Hemoglobin 29.9 27.5 - 32.1 pg 06/14/2024 12:38 AM [facility] Mean Cell Hemoglobin Concentration 32.5 32.0 - 35.7 g/dL 06/14/2024 12:38 AM [facility] Platelet 162 145 - 357 x10(3)/mc L 06/14/2024 12:38 AM [facility] Mean Platelet Volume 10.1 7.6 - 12.9 fL 06/14/2024 12:38 AM [facility] RDW Standard Deviation 46.9(H) 36.0 - 45.0 fL 06/14/2024 12:38 AM [facility] RDW coefficient of variation 13.8 11.4 - 13.8 % 06/14/2024 12:38 AM [facility] NRBC% auto 0.0 % 06/14/2024 12:38 AM [facility] NRBC Absolute <0.01 <0.01 x10(3)/mc L 06/14/2024 12:38 AM [facility] Neutrophil % 56.7 % 06/14/2024 12:38 AM [facility] Neutrophil Absolute (ANC) - Automated 5.96 1.70 - 6.10 x10(3)/mc L 06/14/2024 12:38 AM [facility] Lymph % 26.8 % 06/14/2024 12:38 AM [facility] Lymph Absolute 2.82 0.90 - 3.20 x10(3)/mc L 06/14/2024 12:38 AM [facility] Monocyte % 11.2 % 06/14/2024 12:38 AM [facility] Monocyte Absolute 1.18(H) 0.30 - 0.90 x10(3)/mc L 06/14/2024 12:38 AM [facility] Eos % 3.9 % 06/14/2024 12:38 AM [facility] Eos Absolute 0.41(H) 0.00 - 0.40 x10(3)/mc L 06/14/2024 12:38 AM [facility] Basophil % 0.8 % 06/14/2024 12:38 AM [facility] Baso Absolute 0.08 0.00 - 0.10 x10(3)/mc L 06/14/2024 12:38 AM [facility] Immature Gran % 0.6 % 12:38 AM [facility] Immature Gran Absolute 0.06(H) 0.00 - 0.04 x10(3)/mc L 06/14/2024 12:38 AM [facility] Blood VENOUS BLOOD SPECIMEN / Unknown Venipuncture / Unknown 06/14/2024 12:12 AM EST 06/14/2024 12:29 AM EST Shahnaz Scanlon MD HEMATOLOGY ORDERABLE S Performing Organization Address City/[facility]/ZIP Co de Phone Number [facility] [place] [address] * Magnesium (06/14/2024 12:12 AM EST) Magnesium 0.74 0.69 - 1.07 mMol/L 06/14/2024 12:57 AM [facility] Blood VENOUS BLOOD SPECIMEN / Unknown Venipuncture / Unknown 06/14/2024 12:12 AM EST 06/14/2024 12:29 AM EST Shahnaz Scanlon MD CHEMISTRY ORDERABLES Performing Organization Address City/[facility]/ZIP Co de Phone Number [facility] [place] [address] * (ABNORMAL) Basic Metabolic Panel (06/14/2024 12:12 AM EST) Glucose 97 65 - 199 mg/dL 06/14/2024 12:57 AM [facility] Comment:Glucose Concentratio n >=200 mg/dL plus symptoms is consistent with Diabetes Mellitus. Blood Urea Nitrogen 25(H) 10 - 20 mg/dL 06/14/2024 12:57 AM [facility] Creatinine 1.14 0.80 - 1.50 mg/dL 06/14/2024 12:57 AM [facility] Sodium 135 135 - 145 mMol/L 06/14/2024 12:57 AM [facility] Potassium 4.1 3.5 - 5.0 mMol/L 06/14/2024 12:57 AM [facility] Chloride 100 98 - 107 mMol/L 06/14/2024 12:57 AM [facility] Carbon Dioxide 25 22 - 31 mMol/L 06/14/2024 12:57 AM [facility] Anion Gap 10 5 - 15 mMol/L 06/14/2024 12:57 AM [facility] Calcium 9.5 8.5 - 10.5 mg/dL 06/14/2024 12:57 AM [facility] Est Glomerular Filtration Rate - Male 70 mL/min/1. 73 m?? 06/14/2024 12:57 AM [facility] Comment: [...] AM EST Shahnaz Scanlon MD CHEMISTRY ORDERABLES [facility] [place] [address] * Scan Doc: Implantable Devices (06/14/2024 12:00 AM EST) Narrative 06/14/2024 12:00 AM EST Ordered by an unspecified provider. Scanning Provider MEDIA MGR SCAN EXT O RDR/RSLT * POC, GLUCOSE (06/13/2024 11:12 PM EST) [facility] Signature Glucometer, POC 104 65 - 199 mg/dL 06/13/2024 11:13 PM EST [facility] Comment:Supplemental ranges: <140 mg/dL before meals <180 mg/dL all other times of the day. Blood CAPILLARY BLOOD / Unknown 06/13/2024 11:12 PM EST 06/13/2024 11:13 PM EST Haja Byrnes MD POINT OF CARE TEST O NIKA Performing Organization Address City/[facility]/ZIP Co de Phone Number [facility] [place] [address] * (ABNORMAL) POC, GLUCOSE (06/13/2024 8:03 PM EST) Glucometer, POC 206(H) 65 - 199 mg/dL 06/13/2024 8:03 PM EST [facility] Comment:Supplemental ranges: <140 mg/dL before meals <180 mg/dL all other times of the day. Blood CAPILLARY BLOOD / Unknown 06/13/2024 8:03 PM EST 06/13/2024 8:03 PM EST Haja Byrnes MD POINT OF CARE TEST O NIKA Performing Organization Address City/[facility] Co de Phone Number [facility] [place] [address] * Heparin (unfractionated) Level (06/13/2024 4:11 PM EST) UF Heparin 0.76 IU/mL 06/13/2024 4:24 PM EST [facility] Comment: Heparin (anti-Xa) levels [...] MD HEMATOLOGY ORDERABLE S Performing Organization Address City/[facility]/ZIP Co de Phone Number [facility] [place] [address] * ABORH RECHECK (06/13/2024 4:11 PM EST) ABORH Recheck O POSITIVE 06/13/2024 4:50 PM EST [facility] Blood VENOUS BLOOD SPECIMEN / Unknown Venipuncture / Unknown 06/13/2024 4:11 PM EST 06/13/2024 4:19 PM EST Haja Byrnes MD BLOOD BANK LAB ORDER EUSEBIA Performing Organization Address [facility] Co de Phone Number [facility] [place] [place] [address] * (ABNORMAL) POC, GLUCOSE (06/13/2024 4:09 PM EST) Glucometer, POC 216(H) 65 - 199 mg/dL 06/13/2024 4:10 PM EST [facility] Comment:Supplemental ranges: <140 mg/dL before meals <180 mg/dL all other times of the day. Blood CAPILLARY BLOOD / Unknown 06/13/2024 4:09 PM EST 06/13/2024 4:10 PM EST Haja Byrnes MD POINT OF CARE TEST O RDERABLES Performing Organization Address City/[facility]/ZIP Co de Phone Number [facility] [place] [address] * Type and screen ([facility]/CGP/RAFITA) (06/13/2024 11:53 AM EST) ABORH Type O POSITIVE 06/13/2024 1:16 PM EST [facility] PATIENT HISTORY Not Found 06/13/2024 1:16 PM EST [facility] Expires at [id number] on: 06/16/2024 06/13/2024 1:16 PM EST [facility] ANTIBODY SCREEN AUTOMATED Negative 06/13/2024 1:16 PM EST [facility] T&S only valid at [facility] 06/13/2024 1:16 PM EST [facility] Blood VENOUS BLOOD SPECIMEN / Unknown Venipuncture / Unknown 06/13/2024 11:53 AM EST 06/13/2024 11:56 AM EST Narrative [facility] - 06/13/2024 1:16 PM EST This Type and Screen result is only valid at the [facility] Haja Byrnes MD BLOOD BANK LAB ORDER EUSEBIA [facility] [place] [place] [address] * POC, GLUCOSE (06/13/2024 11:50 AM EST) [facility] Glucometer, POC 178 65 - 199 mg/dL 06/13/2024 11:51 AM EST [facility] Comment:Supplemental ranges: <140 mg/dL before meals <180 mg/dL all other times of the day. Blood CAPILLARY BLOOD / Unknown 06/13/2024 11:50 AM EST 06/13/2024 11:51 AM EST Haja Byrnes MD POINT OF CARE TEST O RDERABLES [facility] [place] [address] * XR Chest One View (06/13/2024 10:35 AM EST) WORKSTATION ID [id number] RAD Anatomical Region Laterality Modality Chest N/A [...] who have questions please contact the health direct support professional caregiver that requested your imaging first. ? Electronically signed by: Jyothi Simon MD, [facility] ([phone]), at 06/13/2024 10:43 AM Narrative 06/13/2024 10:43 [...] patients who have questions please contactthe health direct support professional caregiver that requested your imaging first. Haja Byrnes MD IMG DX ORDERABLES * CARDIAC CATHETERIZATION (06/13/2024 9:02 AM EST) Anatomical Region Laterality Modality Other Narrative 06/15/2024 9:07 AM EST ?[facility] ? Cardiac Catheterization/Intervention Report ? Patient Name: George Mehta ? Procedure Date: 06/13/2024 ? A #: [id number] ? Primary Physician: Nuha Shen I ? Case #: [id number] ? File Name: [id number] ? Catheterization Order Number: [id number] ? [facility] ? Final Report [place], [place] ? Patient Name: ? George L. Tyson ? ID#: ?[id number] ? : ?1955 ? Procedure Date: ? [...] ?was designated as ASA Class IV. The [facility] clinical frailty scale is 5: ?Mildly Frail. [...] procedure was Urgent. The indication for ?the laborer cement gun placing visit is ACS greater than 24 hrs [...] angiography, vascular ?ultrasound and IABP insertion in laborer cement gun placing. ? Nuha Shen M.D. ? Electronically Signed by: Nuha Shen M.D. ? Report Finalized: 06/15/2024 ??08:59 ? Procedure Note Nuha Shen MD - 06/15/2024 [facility] Cardiac Catheterization/Intervention Report Patient Name: George Mehta Procedure Date: 06/13/2024 A #: [id number] Primary Physician: Nuha Shen I Case #: [id number] File Name: [id number] Catheterization Order Number: [id number] [facility] FinalReport [place], [place] Patient Name: George Mehta ID#:[id number] :1955 Procedure Date: June 13, 2024 Case [...] was designated as ASA Class IV. The [facility] clinical frailty scale is5: Mildly Frail. Diagnostic [...] diagnostic procedure was Urgent. The indicationfor the laborer cement gun placing visit is ACS greater than 24 hrs [...] site angiography,vascular ultrasound and IABP insertion in laborer cement gun placing. Nuha Shen M.D. Electronically Signed by: Nuha Shen M.D. Report Finalized: 06/15/2024 08:59 Nuha Rojo MD CARDIAC CATH ORDERA BLES * Potassium (06/13/2024 7:48 AM EST) Potassium 4.5 3.5 - 5.0 mMol/L 06/13/2024 8:28 AM EST [facility] Blood VENOUS BLOOD SPECIMEN / Unknown Venipuncture / Unknown 06/13/2024 7:48 AM EST 06/13/2024 7:55 AM EST Shahnaz Scanlon MD CHEMISTRY ORDERABLES Performing Organization Address City/[facility]/ZIP Co de Phone Number [facility] [place] [address] * POC, GLUCOSE (06/13/2024 7:41 AM EST) Glucometer, POC 126 65 - 199 mg/dL 06/13/2024 7:41 AM EST [facility] Comment:Supplemental ranges: <140 mg/dL before meals <180 mg/dL all other times of the day. Blood CAPILLARY BLOOD / Unknown 06/13/2024 7:41 AM EST 06/13/2024 7:41 AM EST Ethel Carrillo MD POINT OF CARE TEST O RDERABLES Performing Organization Address City/[facility]/ZIP Co de Phone Number [facility] [place] [address] * POC, GLUCOSE (06/13/2024 3:25 AM EST) Glucometer, POC 99 65 - 199 mg/dL 06/13/2024 3:25 AM EST [facility] Comment:Supplemental ranges: <140 mg/dL before meals <180 mg/dL all other times of the day. Blood CAPILLARY BLOOD / Unknown 06/13/2024 3:25 AM EST 06/13/2024 3:25 AM EST Ethel Carrillo MD POINT OF CARE TEST O RDERABLES Performing Organization Address [facility] Co de Phone Number [facility] [place] [address] * Heparin (unfractionated) Level (06/13/2024 2:26 AM EST) UF Heparin 0.60 IU/mL 06/13/2024 3:32 AM EST [facility] Comment: Heparin (anti-Xa) levels [...] MD HEMATOLOGY ORDERABLE S Performing Organization Address [facility]/ZIP Co de Phone Number [facility] [place] [address] * (ABNORMAL) CBC (with Diff) (06/13/2024 2:26 AM EST) White Blood Cell 9.98(H) 4.00 - 9.50 x10(3)/mc L 06/13/2024 2:41 AM EST [facility] Red Blood Cell 5.11 4.58 - 5.54 x10(6)/mc L 06/13/2024 2:41 AM [facility] Hemoglobin 15.3 13.7 - 16.5 g/dL 06/13/2024 2:41 AM [facility] Hematocrit 47.1 40.5 - 48.5 % 06/13/2024 2:41 AM [facility] Mean Cell Volume 92.2 82.9 - 93.1 fL 06/13/2024 2:41 AM [facility] Mean Cell Hemoglobin 29.9 27.5 - 32.1 pg 06/13/2024 2:41 AM [facility] Mean Cell Hemoglobin Concentration 32.5 32.0 - 35.7 g/dL 06/13/2024 2:41 AM [facility] Platelet 194 145 - 357 x10(3)/mc L 06/13/2024 2:41 AM [facility] Mean Platelet Volume 9.7 7.6 - 12.9 fL 06/13/2024 2:41 AM [facility] RDW Standard Deviation 47.5(H) 36.0 - 45.0 fL 06/13/2024 2:41 AM [facility] RDW coefficient of variation 13.8 11.4 - 13.8 % 06/13/2024 2:41 AM [facility] NRBC% auto 0.0 % 06/13/2024 2:41 AM [facility] NRBC Absolute <0.01 <0.01 x10(3)/mc L 06/13/2024 2:41 AM [facility] Neutrophil % 48.8 % 06/13/2024 2:41 AM [facility] Neutrophil Absolute (ANC) - Automated 4.87 1.70 - 6.10 x10(3)/mc L 06/13/2024 2:41 AM [facility] Lymph % 35.3 % 06/13/2024 2:41 AM [facility] Lymph Absolute 3.52(H) 0.90 - 3.20 x10(3)/mc L 06/13/2024 2:41 AM EST [facility] Monocyte % 10.1 % 06/13/2024 2:41 AM [facility] Monocyte Absolute 1.01(H) 0.30 - 0.90 x10(3)/mc L 06/13/2024 2:41 AM [facility] Eos % 4.4 % 06/13/2024 2:41 AM [facility] Eos Absolute 0.44(H) 0.00 - 0.40 x10(3)/mc L 06/13/2024 2:41 AM [facility] Basophil % 0.9 % 06/13/2024 2:41 AM [facility] Baso Absolute 0.09 0.00 - 0.10 x10(3)/mc L 06/13/2024 2:41 AM [facility] Immature Gran % 0.5 % 2:41 AM [facility] Immature Gran Absolute 0.05(H) 0.00 - 0.04 x10(3)/mc L 06/13/2024 2:41 AM [facility] Blood VENOUS BLOOD SPECIMEN / Unknown Venipuncture / Unknown 06/13/2024 2:26 AM EST 06/13/2024 2:32 AM EST Shahnaz Scanlon MD HEMATOLOGY ORDERABLE S [facility] [place] [address] * Magnesium (06/13/2024 2:26 AM EST) Magnesium 0.78 0.69 - 1.07 mMol/L 06/13/2024 2:58 AM EST [facility] Blood VENOUS BLOOD SPECIMEN / Unknown Venipuncture / Unknown 06/13/2024 2:26 AM EST 06/13/2024 2:31 AM EST Shahnaz Scanlon MD CHEMISTRY ORDERABLES [facility] [place] [address] * (ABNORMAL) Basic Metabolic Panel (06/13/2024 2:26 AM EST) Glucose 121 65 - 199 mg/dL 06/13/2024 2:58 AM EST [facility] Comment:Glucose Concentratio n >=200 mg/dL plus symptoms is consistent with Diabetes Mellitus. Blood Urea Nitrogen 21(H) 10 - 20 mg/dL 06/13/2024 2:58 AM [facility] Creatinine 1.07 0.80 - 1.50 mg/dL 06/13/2024 2:58 AM [facility] Sodium 136 135 - 145 mMol/L 06/13/2024 2:58 AM [facility] Potassium 3.9 3.5 - 5.0 mMol/L 06/13/2024 2:58 AM [facility] Chloride 99 98 - 107 mMol/L 06/13/2024 2:58 AM [facility] Carbon Dioxide 27 22 - 31 mMol/L 06/13/2024 2:58 AM [facility] Anion Gap 10 5 - 15 mMol/L 06/13/2024 2:58 AM [facility] Calcium 9.7 8.5 - 10.5 mg/dL 06/13/2024 2:58 AM [facility] Est Glomerular Filtration Rate - Male 76 mL/min/1. 73 m?? 06/13/2024 2:58 AM [facility] Comment: [...] Scanlon MD CHEMISTRY ORDERABLES Performing Organization Address [facility]/ZIP Co de Phone Number [facility] [place] [address] * POC, GLUCOSE (06/12/2024 11:53 PM EST) Glucometer, POC 141 65 - 199 mg/dL 06/12/2024 11:54 PM EST [facility] Comment:Supplemental ranges: <140 mg/dL before meals <180 mg/dL all other times of the day. Blood CAPILLARY BLOOD / Unknown 06/12/2024 11:53 PM EST 06/12/2024 11:54 PM EST Ethel Carrillo MD POINT OF CARE TEST O RDERABLES Performing Organization Address [facility] Co de Phone Number [facility] [place] [address] * POC, GLUCOSE (06/12/2024 7:32 PM EST) Glucometer, POC 158 65 - 199 mg/dL 06/12/2024 7:32 PM EST [facility] Comment:Supplemental ranges: <140 mg/dL before meals <180 mg/dL all other times of the day. Blood CAPILLARY BLOOD / Unknown 06/12/2024 7:32 PM EST 06/12/2024 7:32 PM EST Ethel Carrillo MD POINT OF CARE TEST O RDERABLES Performing Organization Address [facility]/ZIP Co de Phone Number [facility] [place] [address] * POC, GLUCOSE (06/12/2024 3:41 PM EST) Glucometer, POC 113 65 - 199 mg/dL 06/12/2024 3:41 PM EST [facility] Comment:Supplemental ranges: <140 mg/dL before meals <180 mg/dL all other times of the day. Blood CAPILLARY BLOOD / Unknown 06/12/2024 3:41 PM EST 06/12/2024 3:41 PM EST Ethel Carrillo MD POINT OF CARE TEST O RDERAPIETER Performing Organization Address [facility]/ZIP Co de Phone Number [facility] [place] [address] * Potassium (06/12/2024 2:19 PM EST) Potassium 4.5 3.5 - 5.0 mMol/L 06/12/2024 2:45 PM EST [facility] Blood VENOUS BLOOD SPECIMEN / Unknown Venipuncture / Unknown 06/12/2024 2:19 PM EST 06/12/2024 2:23 PM EST Shahnaz Scanlon MD CHEMISTRY ORDERABLES Performing Organization Address [facility] Co de Phone Number [facility] [place] [address] * (ABNORMAL) POC, GLUCOSE (06/12/2024 11:21 AM EST) Glucometer, POC 207(H) 65 - 199 mg/dL 06/12/2024 11:21 AM EST [facility] Comment:Supplemental ranges: <140 mg/dL before meals <180 mg/dL all other times of the day. Blood CAPILLARY BLOOD / Unknown 06/12/2024 11:21 AM EST 06/12/2024 11:22 AM EST Ethel Carrillo MD POINT OF CARE TEST O RDERABLES Performing Organization Address [facility]/ZIP Co de Phone Number [facility] [place] [address] * POC, GLUCOSE (06/12/2024 8:00 AM EST) Glucometer, POC 169 65 - 199 mg/dL 06/12/2024 8:01 AM EST [facility] Comment:Supplemental ranges: <140 mg/dL before meals <180 mg/dL all other times of the day. Blood CAPILLARY BLOOD / Unknown 06/12/2024 8:00 AM EST 06/12/2024 8:01 AM EST Ethel Carrillo MD POINT OF CARE TEST O NIKA Performing Organization Address [facility]/ZIP Co de Phone Number [facility] [place] [address] * POC, GLUCOSE (06/12/2024 4:25 AM EST) Glucometer, POC 132 65 - 199 mg/dL 06/12/2024 4:26 AM EST [facility] Comment:Supplemental ranges: <140 mg/dL before meals <180 mg/dL all other times of the day. Blood CAPILLARY BLOOD / Unknown 06/12/2024 4:25 AM EST 06/12/2024 4:26 AM EST Ethel Carrillo MD POINT OF CARE TEST Abimael MAHER Performing Organization Address [facility]/ZIP Co de Phone Number [facility] [place] [address] * Heparin (unfractionated) Level (06/12/2024 3:03 AM EST) UF Heparin 0.55 IU/mL 06/12/2024 3:44 AM EST [facility] Comment: Heparin (anti-Xa) levels [...] EST Shahnaz Scanlon MD HEMATOLOGY ORDERABLE S [facility] [place] [address] * (ABNORMAL) CBC (with Diff) (06/12/2024 3:03 AM EST) White Blood Cell 9.69(H) 4.00 - 9.50 x10(3)/mc L 06/12/2024 3:36 AM [facility] Red Blood Cell 5.05 4.58 - 5.54 x10(6)/mc L 06/12/2024 3:36 AM [facility] Hemoglobin 15.2 13.7 - 16.5 g/dL 06/12/2024 3:36 AM [facility] Hematocrit 46.6 40.5 - 48.5 % 06/12/2024 3:36 AM [facility] Mean Cell Volume 92.3 82.9 - 93.1 fL 06/12/2024 3:36 AM [facility] Mean Cell Hemoglobin 30.1 27.5 - 32.1 pg 06/12/2024 3:36 AM [facility] Mean Cell Hemoglobin Concentration 32.6 32.0 - 35.7 g/dL 06/12/2024 3:36 AM [facility] Platelet 194 145 - 357 x10(3)/mc L 06/12/2024 3:36 AM [facility] Mean Platelet Volume 10.1 7.6 - 12.9 fL 06/12/2024 3:36 AM [facility] RDW Standard Deviation 47.7(H) 36.0 - 45.0 fL 06/12/2024 3:36 AM [facility] RDW coefficient of variation 14.0(H) 11.4 - 13.8 % 06/12/2024 3:36 AM [facility] NRBC% auto 0.0 % 06/12/2024 3:36 AM [facility] NRBC Absolute <0.01 <0.01 x10(3)/mc L 06/12/2024 3:36 AM [facility] Neutrophil % 49.9 % 06/12/2024 3:36 AM [facility] Neutrophil Absolute (ANC) - Automated 4.82 1.70 - 6.10 x10(3)/mc L 06/12/2024 3:36 AM [facility] Lymph % 33.5 % 06/12/2024 3:36 AM [facility] Lymph Absolute 3.25(H) 0.90 - 3.20 x10(3)/mc L 06/12/2024 3:36 AM [facility] Monocyte % 11.1 % 06/12/2024 3:36 AM [facility] Monocyte Absolute 1.08(H) 0.30 - 0.90 x10(3)/mc L 06/12/2024 3:36 AM [facility] Eos % 4.1 % 06/12/2024 3:36 AM [facility] Eos Absolute 0.40 0.00 - 0.40 x10(3)/mc L 06/12/2024 3:36 AM [facility] Basophil % 0.8 % 06/12/2024 3:36 AM [facility] Baso Absolute 0.08 0.00 - 0.10 x10(3)/mc L 06/12/2024 3:36 AM [facility] Immature Gran % 0.6 % 3:36 AM [facility] Immature Gran Absolute 0.06(H) 0.00 - 0.04 x10(3)/mc L 06/12/2024 3:36 AM [facility] Blood VENOUS BLOOD SPECIMEN / Unknown Venipuncture / Unknown 06/12/2024 3:03 AM EST 06/12/2024 3:30 AM EST Shahnaz Scanlon MD HEMATOLOGY ORDERABLE S Performing Organization Address [facility]/ZIP Co de Phone Number [facility] [place] [address] * Magnesium (06/12/2024 3:03 AM EST) Magnesium 0.79 0.69 - 1.07 mMol/L 06/12/2024 4:01 AM [facility] Blood VENOUS BLOOD SPECIMEN / Unknown Venipuncture / Unknown 06/12/2024 3:03 AM EST 06/12/2024 3:30 AM EST Shahnaz Scanlon MD CHEMISTRY ORDERABLES Performing Organization Address [facility] Co de Phone Number [facility] [place] [address] * (ABNORMAL) Basic Metabolic Panel (06/12/2024 3:03 AM EST) Glucose 132 65 - 199 mg/dL 06/12/2024 4:01 AM [facility] Comment:Glucose Concentratio n >=200 mg/dL plus symptoms is consistent with Diabetes Mellitus. Blood Urea Nitrogen 23(H) 10 - 20 mg/dL 06/12/2024 4:01 AM [facility] Creatinine 1.15 0.80 - 1.50 mg/dL 06/12/2024 4:01 AM [facility] Sodium 138 135 - 145 mMol/L 06/12/2024 4:01 AM [facility] Potassium 3.8 3.5 - 5.0 mMol/L 06/12/2024 4:01 AM [facility] Chloride 98 98 - 107 mMol/L 06/12/2024 4:01 AM [facility] Carbon Dioxide 29 22 - 31 mMol/L 06/12/2024 4:01 AM [facility] Anion Gap 11 5 - 15 mMol/L 06/12/2024 4:01 AM [facility] Calcium 9.5 8.5 - 10.5 mg/dL 06/12/2024 4:01 AM [facility] Est Glomerular Filtration Rate - Male 70 mL/min/1. 73 m?? 06/12/2024 4:01 AM [facility] Comment: [...] AM EST Shahnaz Scanlon MD CHEMISTRY ORDERABLES [facility] [place] [address] * POC, GLUCOSE (06/11/2024 11:56 PM EST) Glucometer, POC 135 65 - 199 mg/dL 06/11/2024 11:56 PM [facility] Comment:Supplemental ranges: <140 mg/dL before meals <180 mg/dL all other times of the day. Blood CAPILLARY BLOOD / Unknown 06/11/2024 11:56 PM EST 06/11/2024 11:56 PM EST Ethel Carrillo MD POINT OF CARE TEST O NIKA Performing Organization Address [facility] Co de Phone Number [facility] [place] [address] * (ABNORMAL) POC, GLUCOSE (06/11/2024 8:25 PM EST) Glucometer, POC 210(H) 65 - 199 mg/dL 06/11/2024 8:26 PM EST [facility] Comment:Supplemental ranges: <140 mg/dL before meals <180 mg/dL all other times of the day. Blood CAPILLARY BLOOD / Unknown 06/11/2024 8:25 PM EST 06/11/2024 8:26 PM EST Ethel Carrillo MD POINT OF CARE TEST O NIKA Performing Organization Address [facility] Co de Phone Number [facility] [place] [address] * POC, GLUCOSE (06/11/2024 4:24 PM EST) Glucometer, POC 81 65 - 199 mg/dL 06/11/2024 4:24 PM EST [facility] Comment:Supplemental ranges: <140 mg/dL before meals <180 mg/dL all other times of the day. Blood CAPILLARY BLOOD / Unknown 06/11/2024 4:24 PM EST 06/11/2024 4:25 PM EST Ethel Carrillo MD POINT OF CARE TEST O NIKA Performing Organization Address [facility] Co de Phone Number [facility] [place] [address] * (ABNORMAL) POC, GLUCOSE (06/11/2024 11:08 AM EST) Glucometer, POC 233(H) 65 - 199 mg/dL 06/11/2024 11:08 AM EST [facility] Comment:Supplemental ranges: <140 mg/dL before meals <180 mg/dL all other times of the day. Blood CAPILLARY BLOOD / Unknown 06/11/2024 11:08 AM EST 06/11/2024 11:08 AM EST Ethel Carrillo MD POINT OF CARE TEST O NIKA Performing Organization Address [facility] Co de Phone Number [facility] [place] [address] * POC, GLUCOSE (06/11/2024 7:48 AM EST) Glucometer, POC 184 65 - 199 mg/dL 06/11/2024 7:49 AM EST [facility] Comment:Supplemental ranges: <140 mg/dL before meals <180 mg/dL all other times of the day. Blood CAPILLARY BLOOD / Unknown 06/11/2024 7:48 AM EST 06/11/2024 7:49 AM EST Melida Valdes MD POINT OF CARE TEST Abimael MAHER Performing Organization Address [facility] de Phone Number [facility] [place] [address] * Heparin (unfractionated) Level (06/11/2024 5:31 AM EST) UF Heparin 0.55 IU/mL 06/11/2024 6:10 AM EST [facility] Comment: Heparin (anti-Xa) levels [...] MD HEMATOLOGY ORDERABLE S Performing Organization Address City/[facility]/ZIP Co de Phone Number [facility] [place] [address] * POC, GLUCOSE (06/11/2024 3:57 AM EST) Glucometer, POC 132 65 - 199 mg/dL 06/11/2024 3:58 AM EST [facility] Comment:Supplemental ranges: <140 mg/dL before meals <180 mg/dL all other times of the day. Blood CAPILLARY BLOOD / Unknown 06/11/2024 3:57 AM EST 06/11/2024 3:58 AM EST Melida Valdes MD POINT OF CARE TEST O RDERABLES Performing Organization Address [facility] Co de Phone Number [facility] [place] [address] * (ABNORMAL) CBC (with Diff) (06/11/2024 2:13 AM EST) White Blood Cell 9.91(H) 4.00 - 9.50 x10(3)/mc L 06/11/2024 2:26 AM EST [facility] Red Blood Cell 5.13 4.58 - 5.54 x10(6)/mc L 06/11/2024 2:26 AM EST [facility] Hemoglobin 15.3 13.7 - 16.5 g/dL 06/11/2024 2:26 AM EST [facility] Hematocrit 47.5 40.5 - 48.5 % 06/11/2024 2:26 AM EST [facility] Mean Cell Volume 92.6 82.9 - 93.1 fL 06/11/2024 2:26 AM [facility] Mean Cell Hemoglobin 29.8 27.5 - 32.1 pg 06/11/2024 2:26 AM [facility] Mean Cell Hemoglobin Concentration 32.2 32.0 - 35.7 g/dL 06/11/2024 2:26 AM [facility] Platelet 184 145 - 357 x10(3)/mc L 06/11/2024 2:26 AM [facility] Mean Platelet Volume 9.7 7.6 - 12.9 fL 06/11/2024 2:26 AM [facility] RDW Standard Deviation 48.0(H) 36.0 - 45.0 fL 06/11/2024 2:26 AM [facility] RDW coefficient of variation 14.0(H) 11.4 - 13.8 % 06/11/2024 2:26 AM [facility] NRBC% auto 0.0 % 06/11/2024 2:26 AM [facility] NRBC Absolute <0.01 <0.01 x10(3)/mc L 06/11/2024 2:26 AM [facility] Neutrophil % 50.3 % 06/11/2024 2:26 AM [facility] Neutrophil Absolute (ANC) - Automated 4.98 1.70 - 6.10 x10(3)/mc L 06/11/2024 2:26 AM [facility] Lymph % 33.5 % 06/11/2024 2:26 AM [facility] Lymph Absolute 3.32(H) 0.90 - 3.20 x10(3)/mc L 06/11/2024 2:26 AM [facility] Monocyte % 10.9 % 06/11/2024 2:26 AM [facility] Monocyte Absolute 1.08(H) 0.30 - 0.90 x10(3)/mc L 06/11/2024 2:26 AM EST [facility] Eos % 4.1 % 06/11/2024 2:26 AM [facility] Eos Absolute 0.41(H) 0.00 - 0.40 x10(3)/mc L 06/11/2024 2:26 AM [facility] Basophil % 0.7 % 06/11/2024 2:26 AM [facility] Baso Absolute 0.07 0.00 - 0.10 x10(3)/mc L 06/11/2024 2:26 AM [facility] Immature Gran % 0.5 % 2:26 AM [facility] Immature Gran Absolute 0.05(H) 0.00 - 0.04 x10(3)/mc L 06/11/2024 2:26 AM [facility] Blood VENOUS BLOOD SPECIMEN / Unknown Venipuncture / Unknown 06/11/2024 2:13 AM EST 06/11/2024 2:19 AM EST Shahnaz Scanlon MD HEMATOLOGY ORDERABLE S [facility] [place] [address] * Magnesium (06/11/2024 2:13 AM EST) Magnesium 0.83 0.69 - 1.07 mMol/L 06/11/2024 2:51 AM EST [facility] Blood VENOUS BLOOD SPECIMEN / Unknown Venipuncture / Unknown 06/11/2024 2:13 AM EST 06/11/2024 2:19 AM EST Shahnaz Scanlon MD CHEMISTRY ORDERABLES [facility] [place] [address] * (ABNORMAL) Basic Metabolic Panel (06/11/2024 2:13 AM EST) Glucose 148 65 - 199 mg/dL 06/11/2024 2:51 AM [facility] Comment:Glucose Concentratio n >=200 mg/dL plus symptoms is consistent with Diabetes Mellitus. Blood Urea Nitrogen 24(H) 10 - 20 mg/dL 06/11/2024 2:51 AM [facility] Creatinine 1.06 0.80 - 1.50 mg/dL 06/11/2024 2:51 AM [facility] Sodium 134(L) 135 - 145 mMol/L 06/11/2024 2:51 AM [facility] Potassium 4.1 3.5 - 5.0 mMol/L 06/11/2024 2:51 AM [facility] Chloride 96(L) 98 - 107 mMol/L 06/11/2024 2:51 AM [facility] Carbon Dioxide 28 22 - 31 mMol/L 06/11/2024 2:51 AM [facility] Anion Gap 10 5 - 15 mMol/L 06/11/2024 2:51 AM [facility] Calcium 9.4 8.5 - 10.5 mg/dL 06/11/2024 2:51 AM [facility] Est Glomerular Filtration Rate - Male 77 mL/min/1. 73 m?? 06/11/2024 2:51 AM [facility] Comment: [...] Scanlon MD CHEMISTRY ORDERABLES Performing Organization Address [facility] Co de Phone Number [facility] [place] [address] * POC, GLUCOSE (06/11/2024 12:50 AM EST) Glucometer, POC 144 65 - 199 mg/dL 06/11/2024 12:51 AM EST [facility] Comment:Supplemental ranges: <140 mg/dL before meals <180 mg/dL all other times of the day. Blood CAPILLARY BLOOD / Unknown 06/11/2024 12:50 AM EST 06/11/2024 12:51 AM EST Melida Valdes MD POINT OF CARE TEST O RDBECKIE Performing Organization Address [facility] Co de Phone Number [facility] [place] [address] * (ABNORMAL) POC, GLUCOSE (06/10/2024 7:22 PM EST) Glucometer, POC 236(H) 65 - 199 mg/dL 06/10/2024 7:22 PM EST [facility] Comment:Supplemental ranges: <140 mg/dL before meals <180 mg/dL all other times of the day. Blood CAPILLARY BLOOD / Unknown 06/10/2024 7:22 PM EST 06/10/2024 7:22 PM EST Melida Valdes MD POINT OF CARE TEST O NIKA Performing Organization Address City/[facility]/ZIP Co de Phone Number [facility] [place] [address] * (ABNORMAL) Blood Gas, Venous (06/10/2024 5:42 PM EST) pH, Venous 7.34 7.32 - 7.42 06/10/2024 5:50 PM EST [facility] PCO2, Venous 52 38 - 58 mmHg 06/10/2024 5:50 PM EST [facility] PO2, Venous 24 16 - 65 mmHg 06/10/2024 5:50 PM [facility] Bicarbonate, Venous 27.4 22 - 31 mmol/L 06/10/2024 5:50 PM [facility] Base Excess, Venous 1.7(L) 1.9 - 4.5 mmol/L 06/10/2024 5:50 PM [facility] Hemoglobin, Venous 16.8(H) 13.7 - 16.5 g/dL 06/10/2024 5:50 PM [facility] Oxyhemoglobin, Venous 39.0 % 06/10/2024 5:50 PM [facility] Carboxyhemoglobin , Venous 0.3 % 06/10/2024 5:50 PM [facility] Comment: Nonsmokers: 0.5-1.5% COHB ?? Smokers: Variable ??but usually less than 10% ?? Toxic: 20-30% COHB ?? Lethal: Greater than 60% COHB Methemoglobin, Venous 0.5 <=1.5 % 06/10/2024 5:50 PM [facility] Sodium, Venous 137 135 - 145 mmol/L 06/10/2024 5:50 PM [facility] Chloride, Venous 96(L) 98 - 107 mmol/L 06/10/2024 5:50 PM [facility] Potassium, Venous 4.6 3.5 - 5.0 mmol/L 06/10/2024 5:50 PM [facility] Ionized Calcium, Venous 1.23 1.15 - 1.33 mmol/L 06/10/2024 5:50 PM [facility] Glucose, Venous 114 65 - 199 mg/dL 06/10/2024 5:50 PM [facility] Comment:Glucose Concentratio n >=200 mg/dL plus symptoms is consistent with Diabetes Mellitus. Lactate, Venous 1.1 0.5 - 2.2 mmol/L 06/10/2024 5:50 PM [facility] Blood Gas Source Venous 06/10/20 5:50 PM EST [facility] Blood VENOUS BLOOD SPECIMEN / Unknown Blood Gas Venous / Unknown 06/10/2024 5:42 PM EST 06/10/2024 5:47 PM EST Melida Valdes MD CHEMISTRY ORDERABLES Performing Organization Address City/[facility]/ZIP Co de Phone Number [facility] [place] [address] * POC, GLUCOSE (06/10/2024 5:35 PM EST) Glucometer, POC 123 65 - 199 mg/dL 06/10/2024 5:35 PM EST [facility] Comment:Supplemental ranges: <140 mg/dL before meals <180 mg/dL all other times of the day. Blood CAPILLARY BLOOD / Unknown 06/10/2024 5:35 PM EST 06/10/2024 5:35 PM EST Melida Valdes MD POINT OF CARE TEST O RDERABLES Performing Organization Address [facility] Co de Phone Number [facility] [place] [address] * (ABNORMAL) POC, GLUCOSE (06/10/2024 11:25 AM EST) Glucometer, POC 216(H) 65 - 199 mg/dL 06/10/2024 11:25 AM EST [facility] Comment:Supplemental ranges: <140 mg/dL before meals <180 mg/dL all other times of the day. Blood CAPILLARY BLOOD / Unknown 06/10/2024 11:25 AM EST 06/10/2024 11:25 AM EST Melida Valdes MD POINT OF CARE TEST O RDERAPIETER Performing Organization Address City/[facility]/ZIP Co de Phone Number [facility] [place] [address] * (ABNORMAL) POC, GLUCOSE (06/10/2024 7:46 AM EST) Glucometer, POC 206(H) 65 - 199 mg/dL 06/10/2024 7:46 AM EST [facility] Comment:Supplemental ranges: <140 mg/dL before meals <180 mg/dL all other times of the day. Blood CAPILLARY BLOOD / Unknown 06/10/2024 7:46 AM EST 06/10/2024 7:46 AM EST Melida Valdes MD POINT OF CARE TEST O NIKA Performing Organization Address [facility] Co de Phone Number [facility] [place] [address] * POC, GLUCOSE (06/10/2024 4:23 AM EST) Glucometer, POC 154 65 - 199 mg/dL 06/10/2024 4:24 AM EST [facility] Comment:Supplemental ranges: <140 mg/dL before meals <180 mg/dL all other times of the day. Blood CAPILLARY BLOOD / Unknown 06/10/2024 4:23 AM EST 06/10/2024 4:24 AM EST Melida Valdes MD POINT OF CARE TEST Abimael MAHER Performing Organization Address [facility] Co de Phone Number [facility] [place] [address] * (ABNORMAL) CBC (with Diff) (06/10/2024 1:55 AM EST) Pathologist [facility] White Blood Cell 9.00 4.00 - 9.50 x10(3)/mc L 06/10/2024 2:14 AM EST [facility] Red Blood Cell 5.03 4.58 - 5.54 x10(6)/mc L 06/10/2024 2:14 AM EST [facility] Hemoglobin 14.9 13.7 - 16.5 g/dL 06/10/2024 2:14 AM EST [facility] Hematocrit 46.4 40.5 - 48.5 % 06/10/2024 2:14 AM [facility] Mean Cell Volume 92.2 82.9 - 93.1 fL 06/10/2024 2:14 AM [facility] Mean Cell Hemoglobin 29.6 27.5 - 32.1 pg 06/10/2024 2:14 AM [facility] Mean Cell Hemoglobin Concentration 32.1 32.0 - 35.7 g/dL 06/10/2024 2:14 AM [facility] Platelet 191 145 - 357 x10(3)/mc L 06/10/2024 2:14 AM [facility] Mean Platelet Volume 9.7 7.6 - 12.9 fL 06/10/2024 2:14 AM [facility] RDW Standard Deviation 47.4(H) 36.0 - 45.0 fL 06/10/2024 2:14 AM [facility] RDW coefficient of variation 14.1(H) 11.4 - 13.8 % 06/10/2024 2:14 AM [facility] NRBC% auto 0.0 % 06/10/2024 2:14 AM [facility] NRBC Absolute <0.01 <0.01 x10(3)/mc L 06/10/2024 2:14 AM [facility] Neutrophil % 48.7 % 06/10/2024 2:14 AM [facility] Neutrophil Absolute (ANC) - Automated 4.39 1.70 - 6.10 x10(3)/mc L 06/10/2024 2:14 AM [facility] Lymph % 34.9 % 06/10/2024 2:14 AM [facility] Lymph Absolute 3.14 0.90 - 3.20 x10(3)/mc L 06/10/2024 2:14 AM [facility] Monocyte % 11.2 % 06/10/2024 2:14 AM [facility] Monocyte Absolute 1.01(H) 0.30 - 0.90 x10(3)/mc L 06/10/2024 2:14 AM EST [facility] Eos % 3.6 % 06/10/2024 2:14 AM EST [facility] Eos Absolute 0.32 0.00 - 0.40 x10(3)/mc L 06/10/2024 2:14 AM EST [facility] Basophil % 1.0 % 06/10/2024 2:14 AM [facility] Baso Absolute 0.09 0.00 - 0.10 x10(3)/mc L 06/10/2024 2:14 AM EST [facility] Immature Gran % 0.6 % 2:14 AM [facility] Immature Gran Absolute 0.05(H) 0.00 - 0.04 x10(3)/mc L 06/10/2024 2:14 AM [facility] Blood VENOUS BLOOD SPECIMEN / Unknown Venipuncture / Unknown 06/10/2024 1:55 AM EST 06/10/2024 2:05 AM EST Shahnaz Scanlon MD HEMATOLOGY ORDERABLE S [facility] [place] [address] * Magnesium (06/10/2024 1:55 AM EST) Magnesium 0.83 0.69 - 1.07 mMol/L 06/10/2024 2:37 AM EST [facility] Blood VENOUS BLOOD SPECIMEN / Unknown Venipuncture / Unknown 06/10/2024 1:55 AM EST 06/10/2024 2:05 AM EST Shahnaz Scanlon MD CHEMISTRY ORDERABLES [facility] [place] [address] * (ABNORMAL) Basic Metabolic Panel (06/10/2024 1:55 AM EST) Glucose 140 65 - 199 mg/dL 06/10/2024 2:37 AM [facility] Comment:Glucose Concentratio n >=200 mg/dL plus symptoms is consistent with Diabetes Mellitus. Blood Urea Nitrogen 24(H) 10 - 20 mg/dL 06/10/2024 2:37 AM [facility] Creatinine 1.06 0.80 - 1.50 mg/dL 06/10/2024 2:37 AM [facility] Sodium 138 135 - 145 mMol/L 06/10/2024 2:37 AM [facility] Potassium 4.1 3.5 - 5.0 mMol/L 06/10/2024 2:37 AM [facility] Chloride 100 98 - 107 mMol/L 06/10/2024 2:37 AM [facility] Carbon Dioxide 25 22 - 31 mMol/L 06/10/2024 2:37 AM [facility] Anion Gap 13 5 - 15 mMol/L 06/10/2024 2:37 AM [facility] Calcium 9.5 8.5 - 10.5 mg/dL 06/10/2024 2:37 AM [facility] Est Glomerular Filtration Rate - Male 77 mL/min/1. 73 m?? 06/10/2024 2:37 AM [facility] Comment: [...] Scanlon MD CHEMISTRY ORDERABLES Performing Organization Address [facility]/ZIP Co de Phone Number [facility] [place] [address] * Heparin (unfractionated) Level (06/10/2024 1:54 AM EST) UF Heparin 0.56 IU/mL 06/10/2024 2:41 AM EST [facility] Comment: Heparin (anti-Xa) levels [...] EST Shahnaz Scanlon MD HEMATOLOGY ORDERABLE S [facility] [place] [address] * POC, GLUCOSE (06/10/2024 12:05 AM EST) Glucometer, POC 125 65 - 199 mg/dL 06/10/2024 12:05 AM EST [facility] Comment:Supplemental ranges: <140 mg/dL before meals <180 mg/dL all other times of the day. Blood CAPILLARY BLOOD / Unknown 06/10/2024 12:05 AM EST 06/10/2024 12:05 AM EST Melida Valdes MD POINT OF CARE TEST O RDERABLES Performing Organization Address City/[facility]/ZIP Co de Phone Number [facility] [place] [address] * POC, GLUCOSE (06/09/2024 8:36 PM EST) Glucometer, POC 197 65 - 199 mg/dL 06/09/2024 8:36 PM EST [facility] Comment:Supplemental ranges: <140 mg/dL before meals <180 mg/dL all other times of the day. Blood CAPILLARY BLOOD / Unknown 06/09/2024 8:36 PM EST 06/09/2024 8:36 PM EST Melida Valdes MD POINT OF CARE TEST O RALPHERAPIETER Performing Organization Address [facility] Co de Phone Number [facility] [place] [address] * POC, GLUCOSE (06/09/2024 5:27 PM EST) Glucometer, POC 174 65 - 199 mg/dL 06/09/2024 5:28 PM EST [facility] Comment:Supplemental ranges: <140 mg/dL before meals <180 mg/dL all other times of the day. Blood CAPILLARY BLOOD / Unknown 06/09/2024 5:27 PM EST 06/09/2024 5:28 PM EST Melida Valdes MD POINT OF CARE TEST O NIKA Performing Organization Address City/[facility]/ZIP Co de Phone Number [facility] [place] [address] * (ABNORMAL) POC, GLUCOSE (06/09/2024 11:52 AM EST) Glucometer, POC 211(H) 65 - 199 mg/dL 06/09/2024 11:52 AM EST [facility] Comment:Supplemental ranges: <140 mg/dL before meals <180 mg/dL all other times of the day. Blood CAPILLARY BLOOD / Unknown 06/09/2024 11:52 AM EST 06/09/2024 11:52 AM EST Melida Valdes MD POINT OF CARE TEST O RDERABLES Performing Organization Address [facility]/ZIP Co de Phone Number [facility] [place] [address] * Potassium (06/09/2024 8:25 AM EST) Potassium 4.6 3.5 - 5.0 mMol/L 06/09/2024 10:09 AM EST [facility] Blood VENOUS BLOOD SPECIMEN / Unknown Venipuncture / Unknown 06/09/2024 8:25 AM EST 06/09/2024 8:42 AM EST Shahnaz Scanlon MD CHEMISTRY ORDERABLES Performing Organization Address [facility] Co de Phone Number [facility] [place] [address] * (ABNORMAL) POC, GLUCOSE (06/09/2024 8:10 AM EST) Glucometer, POC 209(H) 65 - 199 mg/dL 06/09/2024 8:10 AM EST [facility] Comment:Supplemental ranges: <140 mg/dL before meals <180 mg/dL all other times of the day. Blood CAPILLARY BLOOD / Unknown 06/09/2024 8:10 AM EST 06/09/2024 8:11 AM EST Melida Valdes MD POINT OF CARE TEST O RDERABLES Performing Organization Address [facility]/ZIP Co de Phone Number [facility] [place] [address] * POC, GLUCOSE (06/09/2024 4:40 AM EST) Glucometer, POC 131 65 - 199 mg/dL 06/09/2024 4:40 AM EST [facility] Comment:Supplemental ranges: <140 mg/dL before meals <180 mg/dL all other times of the day. Blood CAPILLARY BLOOD / Unknown 06/09/2024 4:40 AM EST 06/09/2024 4:41 AM EST Melida Valdes MD POINT OF CARE TEST O RDERABLES Performing Organization Address City/[facility]/ZIP Co de Phone Number [facility] [place] [address] * Heparin (unfractionated) Level (06/09/2024 2:12 AM EST) UF Heparin 0.55 IU/mL 06/09/2024 2:33 AM EST [facility] Comment: Heparin (anti-Xa) levels [...] MD HEMATOLOGY ORDERABLE S Performing Organization Address City/[facility]/ZIP Co de Phone Number [facility] [place] [address] * (ABNORMAL) CBC (with Diff) (06/09/2024 2:12 AM EST) White Blood Cell 9.80(H) 4.00 - 9.50 x10(3)/mc L 06/09/2024 2:44 AM [facility] Red Blood Cell 5.18 4.58 - 5.54 x10(6)/mc L 06/09/2024 2:44 AM [facility] Hemoglobin 15.5 13.7 - 16.5 g/dL 06/09/2024 2:44 AM [facility] Hematocrit 47.4 40.5 - 48.5 % 06/09/2024 2:44 AM [facility] Mean Cell Volume 91.5 82.9 - 93.1 fL 06/09/2024 2:44 AM [facility] Mean Cell Hemoglobin 29.9 27.5 - 32.1 pg 06/09/2024 2:44 AM [facility] Mean Cell Hemoglobin Concentration 32.7 32.0 - 35.7 g/dL 06/09/2024 2:44 AM [facility] Platelet 205 145 - 357 x10(3)/mc L 06/09/2024 2:44 AM [facility] Mean Platelet Volume 9.7 7.6 - 12.9 fL 06/09/2024 2:44 AM [facility] RDW Standard Deviation 47.7(H) 36.0 - 45.0 fL 06/09/2024 2:44 AM [facility] RDW coefficient of variation 14.1(H) 11.4 - 13.8 % 06/09/2024 2:44 AM [facility] NRBC% auto 0.0 % 06/09/2024 2:44 AM [facility] NRBC Absolute <0.01 <0.01 x10(3)/mc L 06/09/2024 2:44 AM [facility] Neutrophil % 53.0 % 06/09/2024 2:44 AM [facility] Neutrophil Absolute (ANC) - Automated 5.19 1.70 - 6.10 x10(3)/mc L 06/09/2024 2:44 AM [facility] Lymph % 31.6 % 06/09/2024 2:44 AM [facility] Lymph Absolute 3.10 0.90 - 3.20 x10(3)/mc L 06/09/2024 2:44 AM [facility] Monocyte % 11.0 % 06/09/2024 2:44 AM [facility] Monocyte Absolute 1.08(H) 0.30 - 0.90 x10(3)/mc L 06/09/2024 2:44 AM [facility] Eos % 2.9 % 06/09/2024 2:44 AM [facility] Eos Absolute 0.28 0.00 - 0.40 x10(3)/mc L 06/09/2024 2:44 AM [facility] Basophil % 0.9 % 06/09/2024 2:44 AM [facility] Baso Absolute 0.09 0.00 - 0.10 x10(3)/mc L 06/09/2024 2:44 AM [facility] Immature Gran % 0.6 % 2:44 AM [facility] Immature Gran Absolute 0.06(H) 0.00 - 0.04 x10(3)/mc L 06/09/2024 2:44 AM [facility] Blood VENOUS BLOOD SPECIMEN / Unknown Venipuncture / Unknown 06/09/2024 2:12 AM EST 06/09/2024 2:21 AM EST Shahnaz Scanlon MD HEMATOLOGY ORDERABLE S [facility] [place] [address] * Magnesium (06/09/2024 2:12 AM EST) Magnesium 0.83 0.69 - 1.07 mMol/L 06/09/2024 2:52 AM [facility] Blood VENOUS BLOOD SPECIMEN / Unknown Venipuncture / Unknown 06/09/2024 2:12 AM EST 06/09/2024 2:22 AM EST Shahnaz Scanlon MD CHEMISTRY ORDERABLES [facility] [place] [address] * (ABNORMAL) Basic Metabolic Panel (06/09/2024 2:12 AM EST) Glucose 147 65 - 199 mg/dL 06/09/2024 2:52 AM EST [facility] Comment:Glucose Concentratio n >=200 mg/dL plus symptoms is consistent with Diabetes Mellitus. Blood Urea Nitrogen 24(H) 10 - 20 mg/dL 06/09/2024 2:52 AM [facility] Creatinine 1.11 0.80 - 1.50 mg/dL 06/09/2024 2:52 AM [facility] Sodium 136 135 - 145 mMol/L 06/09/2024 2:52 AM [facility] Potassium 3.9 3.5 - 5.0 mMol/L 06/09/2024 2:52 AM [facility] Chloride 98 98 - 107 mMol/L 06/09/2024 2:52 AM [facility] Carbon Dioxide 27 22 - 31 mMol/L 06/09/2024 2:52 AM [facility] Anion Gap 11 5 - 15 mMol/L 06/09/2024 2:52 AM EST [facility] Calcium 9.7 8.5 - 10.5 mg/dL 06/09/2024 2:52 AM [facility] Est Glomerular Filtration Rate - Male 73 mL/min/1. 73 m?? 06/09/2024 2:52 AM [facility] Comment: [...] Scanlon MD CHEMISTRY ORDERABLES Performing Organization Address [facility] Co de Phone Number [facility] [place] [address] * POC, GLUCOSE (06/09/2024 12:34 AM EST) Glucometer, POC 186 65 - 199 mg/dL 06/09/2024 12:34 AM EST [facility] Comment:Supplemental ranges: <140 mg/dL before meals <180 mg/dL all other times of the day. Blood CAPILLARY BLOOD / Unknown 06/09/2024 12:34 AM EST 06/09/2024 12:34 AM EST Melida Valdes MD POINT OF CARE TEST O RDERAPIETER Performing Organization Address [facility] Co de Phone Number [facility] [place] [address] * POC, GLUCOSE (06/08/2024 8:27 PM EST) Glucometer, POC 176 65 - 199 mg/dL 06/08/2024 8:28 PM EST [facility] Comment:Supplemental ranges: <140 mg/dL before meals <180 mg/dL all other times of the day. Blood CAPILLARY BLOOD / Unknown 06/08/2024 8:27 PM EST 06/08/2024 8:28 PM EST Melida Valdes MD POINT OF CARE TEST O RDERAPIETER Performing Organization Address City/[facility]/ZIP Co de Phone Number [facility] [place] [address] * POC, GLUCOSE (06/08/2024 4:16 PM EST) Glucometer, POC 159 65 - 199 mg/dL 06/08/2024 4:16 PM EST [facility] Comment:Supplemental ranges: <140 mg/dL before meals <180 mg/dL all other times of the day. Blood CAPILLARY BLOOD / Unknown 06/08/2024 4:16 PM EST 06/08/2024 4:16 PM EST Melida Valdes MD POINT OF CARE TEST O NIKA Performing Organization Address City/[facility]/ZIP Co de Phone Number [facility] [place] [address] * (ABNORMAL) POC, GLUCOSE (06/08/2024 12:35 PM EST) Glucometer, POC 226(H) 65 - 199 mg/dL 06/08/2024 12:35 PM EST [facility] Comment:Supplemental ranges: <140 mg/dL before meals <180 mg/dL all other times of the day. Blood CAPILLARY BLOOD / Unknown 06/08/2024 12:35 PM EST 06/08/2024 12:35 PM EST Melida Valdes MD POINT OF CARE TEST O NIKA [facility] [place] [address] * POC, GLUCOSE (06/08/2024 8:10 AM EST) Glucometer, POC 190 65 - 199 mg/dL 06/08/2024 8:14 AM EST [facility] Comment:Supplemental ranges: <140 mg/dL before meals <180 mg/dL all other times of the day. Blood CAPILLARY BLOOD / Unknown 06/08/2024 8:10 AM EST 06/08/2024 8:14 AM EST Melida Valdes MD POINT OF CARE TEST O NIKA Performing Organization Address [facility] Co de Phone Number [facility] [place] [address] * POC, GLUCOSE (06/08/2024 4:09 AM EST) Glucometer, POC 151 65 - 199 mg/dL 06/08/2024 4:10 AM EST [facility] Comment:Supplemental ranges: <140 mg/dL before meals <180 mg/dL all other times of the day. Blood CAPILLARY BLOOD / Unknown 06/08/2024 4:09 AM EST 06/08/2024 4:10 AM EST Melida Valdes MD POINT OF CARE TEST O NIKA Performing Organization Address [facility] de Phone Number [facility] [place] [address] * Heparin (unfractionated) Level (06/08/2024 3:21 AM EST) UF Heparin 0.46 IU/mL 06/08/2024 3:41 AM EST [facility] Comment: Heparin (anti-Xa) levels [...] EST Shahnaz Scanlon MD HEMATOLOGY ORDERABLE S [facility] [place] [address] * (ABNORMAL) CBC (with Diff) (06/08/2024 3:21 AM EST) White Blood Cell 9.92(H) 4.00 - 9.50 x10(3)/mc L 06/08/2024 3:34 AM [facility] Red Blood Cell 5.09 4.58 - 5.54 x10(6)/mc L 06/08/2024 3:34 AM [facility] Hemoglobin 15.1 13.7 - 16.5 g/dL 06/08/2024 3:34 AM [facility] Hematocrit 46.7 40.5 - 48.5 % 06/08/2024 3:34 AM [facility] Mean Cell Volume 91.7 82.9 - 93.1 fL 06/08/2024 3:34 AM [facility] Mean Cell Hemoglobin 29.7 27.5 - 32.1 pg 06/08/2024 3:34 AM [facility] Mean Cell Hemoglobin Concentration 32.3 32.0 - 35.7 g/dL 06/08/2024 3:34 AM [facility] Platelet 203 145 - 357 x10(3)/mc L 06/08/2024 3:34 AM [facility] Mean Platelet Volume 9.4 7.6 - 12.9 fL 06/08/2024 3:34 AM [facility] RDW Standard Deviation 46.9(H) 36.0 - 45.0 fL 06/08/2024 3:34 AM [facility] RDW coefficient of variation 13.8 11.4 - 13.8 % 06/08/2024 3:34 AM [facility] NRBC% auto 0.0 % 06/08/2024 3:34 AM [facility] NRBC Absolute <0.01 <0.01 x10(3)/mc L 06/08/2024 3:34 AM [facility] Neutrophil % 56.8 % 06/08/2024 3:34 AM [facility] Neutrophil Absolute (ANC) - Automated 5.63 1.70 - 6.10 x10(3)/mc L 06/08/2024 3:34 AM [facility] Lymph % 27.3 % 06/08/2024 3:34 AM [facility] Lymph Absolute 2.71 0.90 - 3.20 x10(3)/mc L 06/08/2024 3:34 AM [facility] Monocyte % 11.2 % 06/08/2024 3:34 AM [facility] Monocyte Absolute 1.11(H) 0.30 - 0.90 x10(3)/mc L 06/08/2024 3:34 AM [facility] Eos % 3.4 % 06/08/2024 3:34 AM [facility] Eos Absolute 0.34 0.00 - 0.40 x10(3)/mc L 06/08/2024 3:34 AM [facility] Basophil % 0.8 % 06/08/2024 3:34 AM [facility] Baso Absolute 0.08 0.00 - 0.10 x10(3)/mc L 06/08/2024 3:34 AM [facility] Immature Gran % 0.5 % 3:34 AM [facility] Immature Gran Absolute 0.05(H) 0.00 - 0.04 x10(3)/mc L 06/08/2024 3:34 AM [facility] Blood VENOUS BLOOD SPECIMEN / Unknown Venipuncture / Unknown 06/08/2024 3:21 AM EST 06/08/2024 3:27 AM EST Shahnaz Scanlon MD HEMATOLOGY ORDERABLE S [facility] [place] [address] * Magnesium (06/08/2024 3:21 AM EST) Pathologist [facility] Magnesium 0.84 0.69 - 1.07 mMol/L 06/08/2024 3:59 AM [facility] Blood VENOUS BLOOD SPECIMEN / Unknown Venipuncture / Unknown 06/08/2024 3:21 AM EST 06/08/2024 3:27 AM EST Shahnaz Scanlon MD CHEMISTRY ORDERABLES Performing Organization Address City/[facility]/ZIP Co de Phone Number [facility] [place] [address] * (ABNORMAL) Basic Metabolic Panel (06/08/2024 3:21 AM EST) [facility] Glucose 173 65 - 199 mg/dL 06/08/2024 3:59 AM [facility] Comment:Glucose Concentratio n >=200 mg/dL plus symptoms is consistent with Diabetes Mellitus. Blood Urea Nitrogen 25(H) 10 - 20 mg/dL 06/08/2024 3:59 AM [facility] Creatinine 1.09 0.80 - 1.50 mg/dL 06/08/2024 3:59 AM [facility] Sodium 135 135 - 145 mMol/L 06/08/2024 3:59 AM [facility] Potassium 4.2 3.5 - 5.0 mMol/L 06/08/2024 3:59 AM [facility] Chloride 98 98 - 107 mMol/L 06/08/2024 3:59 AM [facility] Carbon Dioxide 25 22 - 31 mMol/L 06/08/2024 3:59 AM [facility] Anion Gap 12 5 - 15 mMol/L 06/08/2024 3:59 AM [facility] Calcium 9.4 8.5 - 10.5 mg/dL 06/08/2024 3:59 AM EST [facility] Est Glomerular Filtration Rate - Male 74 mL/min/1. 73 m?? 06/08/2024 3:59 AM EST [facility] Comment: This patient's estimated [...] Scanlon MD CHEMISTRY ORDERABLES Performing Organization Address City/[facility]/ZIP Co de Phone Number [facility] [place] [address] * POC, GLUCOSE (06/07/2024 11:57 PM EST) Glucometer, POC 188 65 - 199 mg/dL 06/07/2024 11:57 PM EST [facility] Comment:Supplemental ranges: <140 mg/dL before meals <180 mg/dL all other times of the day. Blood CAPILLARY BLOOD / Unknown 06/07/2024 11:57 PM EST 06/07/2024 11:58 PM EST Melida Valdes MD POINT OF CARE TEST O RDERABLES [facility] [place] [address] * POC, GLUCOSE (06/07/2024 8:05 PM EST) Glucometer, POC 118 65 - 199 mg/dL 06/07/2024 8:06 PM EST [facility] Comment:Supplemental ranges: <140 mg/dL before meals <180 mg/dL all other times of the day. Blood CAPILLARY BLOOD / Unknown 06/07/2024 8:05 PM EST 06/07/2024 8:06 PM EST Melida Valdes MD POINT OF CARE TEST O NIKA Performing Organization Address City/[facility]/ZIP Co de Phone Number [facility] [place] [address] * Potassium (06/07/2024 5:22 PM EST) Pathologist [facility] Potassium 4.6 3.5 - 5.0 mMol/L 06/07/2024 5:59 PM EST [facility] Blood VENOUS BLOOD SPECIMEN / Unknown Venipuncture / Unknown 06/07/2024 5:22 PM EST 06/07/2024 5:26 PM EST Shahnaz Scanlon MD CHEMISTRY ORDERABLES Performing Organization Address [facility] Co de Phone Number [facility] [place] [address] * POC, GLUCOSE (06/07/2024 4:31 PM EST) Glucometer, POC 174 65 - 199 mg/dL 06/07/2024 4:34 PM EST [facility] Comment:Supplemental ranges: <140 mg/dL before meals <180 mg/dL all other times of the day. Blood CAPILLARY BLOOD / Unknown 06/07/2024 4:31 PM EST 06/07/2024 4:34 PM EST Melida Valdes MD POINT OF CARE TEST Abimael MAHER Performing Organization Address City/[facility] Co de Phone Number [facility] [place] [address] * MRI Cardiac Morphology Function wwo Contrast (06/07/2024 1:10 PM EST) WORKSTATION ID [id number] [facility] Anatomical Region Laterality Modality Magnetic Resonan ce [...] - Mildly dilated left ventricle size with [id number] decreased LV systolic function. ??LV ejection fraction [...] who have questions please contact the health direct support professional caregiver that requested your imaging first. ? Electronically signed by: Kriss Alonzo MD, [facility] ([phone]), at 06/07/2024 2:41 PM Narrative 06/07/2024 2:41 [...] VENTRICLE: Mildly dilated left ventricle size with [id number] decreased LV systolic function. ??LV ejection fraction [...] VENTRICLE: Mildly dilated left ventricle size with [id number] decreasedLV systolic function. LV ejection fraction is [...] - Mildly dilated left ventricle size with [id number] decreasedLV systolic function. LV ejection fraction is [...] patients who have questions please contactthe health direct support professional caregiver that requested your imaging first. Delroy Fofana MD [facility] MRI ORDERABLES * (ABNORMAL) POC, GLUCOSE (06/07/2024 11:05 AM EST) [facility] Signature Glucometer, POC 221(H) 65 - 199 mg/dL 06/07/2024 11:06 AM EST [facility] Comment:Supplemental ranges: <140 mg/dL before meals <180 mg/dL all other times of the day. Blood CAPILLARY BLOOD / Unknown 06/07/2024 11:05 AM EST 06/07/2024 11:06 AM EST Melida Valdes MD POINT OF CARE TEST O RDERABLES [facility] [place] [address] * (ABNORMAL) POC, GLUCOSE (06/07/2024 11:03 AM EST) Glucometer, POC 250(H) 65 - 199 mg/dL 06/07/2024 11:04 AM EST [facility] Comment:Supplemental ranges: <140 mg/dL before meals <180 mg/dL all other times of the day. Blood CAPILLARY BLOOD / Unknown 06/07/2024 11:03 AM EST 06/07/2024 11:04 AM EST Melida Valdes MD POINT OF CARE TEST O RDBECKIE Performing Organization Address [facility]/ZIP Co de Phone Number [facility] [place] [address] * Potassium (06/07/2024 9:44 AM EST) Potassium 4.7 3.5 - 5.0 mMol/L 06/07/2024 10:23 AM EST [facility] Blood VENOUS BLOOD SPECIMEN / Unknown Venipuncture / Unknown 06/07/2024 9:44 AM EST 06/07/2024 9:57 AM EST Shahnaz Scanlon MD CHEMISTRY ORDERABLES Performing Organization Address [facility] Co de Phone Number [facility] [place] [address] * POC, GLUCOSE (06/07/2024 7:45 AM EST) Glucometer, POC 175 65 - 199 mg/dL 06/07/2024 7:45 AM EST [facility] Comment:Supplemental ranges: <140 mg/dL before meals <180 mg/dL all other times of the day. Blood CAPILLARY BLOOD / Unknown 06/07/2024 7:45 AM EST 06/07/2024 7:46 AM EST Melida Valdes MD POINT OF CARE TEST O RDBECKIE Performing Organization Address [facility]/ZIP Co de Phone Number [facility] [place] [address] * XR Chest PA & Lateral (Generic) (06/07/2024 7:03 AM EST) WORKSTATION ID [id number] RAD Anatomical Region Laterality Modality Chest N/A [...] who have questions please contact the health direct support professional caregiver that requested your imaging first. ? Electronically signed by: Stuart Aponte MD, [facility] ??([phone]), at 06/07/2024 10:45 AM Narrative 06/07/2024 10:45 [...] patients who have questions please contactthe health direct support professional caregiver that requested your imaging first. Electronically signed by: Stuart Aponte MD, [facility]([phone]), at 06/07/2024 10:45 AM Shahnaz Scanlon MD IMG DX ORDERABLES * POC, GLUCOSE (06/07/2024 4:25 AM EST) Glucometer, POC 127 65 - 199 mg/dL 06/07/2024 4:26 AM EST [facility] Comment:Supplemental ranges: <140 mg/dL before meals <180 mg/dL all other times of the day. Blood CAPILLARY BLOOD / Unknown 06/07/2024 4:25 AM EST 06/07/2024 4:26 AM EST Melida Valdes MD POINT OF CARE TEST O RDERABLES [facility] [place] [address] * Heparin (unfractionated) Level (06/07/2024 2:41 AM EST) UF Heparin 0.45 IU/mL 06/07/2024 3:03 AM EST [facility] Comment: Heparin (anti-Xa) levels [...] EST Shahnaz Scanlon MD HEMATOLOGY ORDERABLE S [facility] [place] [address] * (ABNORMAL) CBC (with Diff) (06/07/2024 2:41 AM EST) White Blood Cell 10.06(H) 4.00 - 9.50 x10(3)/mc L 06/07/2024 2:58 AM [facility] Red Blood Cell 5.02 4.58 - 5.54 x10(6)/mc L 06/07/2024 2:58 AM [facility] Hemoglobin 14.8 13.7 - 16.5 g/dL 06/07/2024 2:58 AM [facility] Hematocrit 46.2 40.5 - 48.5 % 06/07/2024 2:58 AM [facility] Mean Cell Volume 92.0 82.9 - 93.1 fL 06/07/2024 2:58 AM [facility] Mean Cell Hemoglobin 29.5 27.5 - 32.1 pg 06/07/2024 2:58 AM [facility] Mean Cell Hemoglobin Concentration 32.0 32.0 - 35.7 g/dL 06/07/2024 2:58 AM [facility] Platelet 202 145 - 357 x10(3)/mc L 06/07/2024 2:58 AM [facility] Mean Platelet Volume 9.6 7.6 - 12.9 fL 06/07/2024 2:58 AM [facility] RDW Standard Deviation 46.3(H) 36.0 - 45.0 fL 06/07/2024 2:58 AM [facility] RDW coefficient of variation 13.8 11.4 - 13.8 % 06/07/2024 2:58 AM [facility] NRBC% auto 0.0 % 06/07/2024 2:58 AM [facility] NRBC Absolute <0.01 <0.01 x10(3)/mc L 06/07/2024 2:58 AM [facility] Neutrophil % 55.9 % 06/07/2024 2:58 AM [facility] Neutrophil Absolute (ANC) - Automated 5.62 1.70 - 6.10 x10(3)/mc L 06/07/2024 2:58 AM [facility] Lymph % 28.3 % 06/07/2024 2:58 AM [facility] Lymph Absolute 2.85 0.90 - 3.20 x10(3)/mc L 06/07/2024 2:58 AM [facility] Monocyte % 10.8 % 06/07/2024 2:58 AM [facility] Monocyte Absolute 1.09(H) 0.30 - 0.90 x10(3)/mc L 06/07/2024 2:58 AM [facility] Eos % 3.6 % 06/07/2024 2:58 AM [facility] Eos Absolute 0.36 0.00 - 0.40 x10(3)/mc L 06/07/2024 2:58 AM [facility] Basophil % 0.8 % 06/07/2024 2:58 AM [facility] Baso Absolute 0.08 0.00 - 0.10 x10(3)/mc L 06/07/2024 2:58 AM EST [facility] Immature Gran % 0.6 % 2:58 AM [facility] Immature Gran Absolute 0.06(H) 0.00 - 0.04 x10(3)/mc L 06/07/2024 2:58 AM [facility] Blood VENOUS BLOOD SPECIMEN / Unknown Venipuncture / Unknown 06/07/2024 2:41 AM EST 06/07/2024 2:52 AM EST Shahnaz Scanlon MD HEMATOLOGY ORDERABLE S Performing Organization Address City/[facility]/ZIP Co de Phone Number [facility] [place] [address] * Magnesium (06/07/2024 2:41 AM EST) Magnesium 0.92 0.69 - 1.07 mMol/L 06/07/2024 3:25 AM [facility] Blood VENOUS BLOOD SPECIMEN / Unknown Venipuncture / Unknown 06/07/2024 2:41 AM EST 06/07/2024 2:51 AM EST Shahnaz Scanlon MD CHEMISTRY ORDERABLES [facility] [place] [address] * (ABNORMAL) Basic Metabolic Panel (06/07/2024 2:41 AM EST) Glucose 140 65 - 199 mg/dL 06/07/2024 3:25 AM [facility] Comment:Glucose Concentratio n >=200 mg/dL plus symptoms is consistent with Diabetes Mellitus. Blood Urea Nitrogen 26(H) 10 - 20 mg/dL 06/07/2024 3:25 AM [facility] Creatinine 1.06 0.80 - 1.50 mg/dL 06/07/2024 3:25 AM [facility] Sodium 136 135 - 145 mMol/L 06/07/2024 3:25 AM [facility] Potassium 3.8 3.5 - 5.0 mMol/L 06/07/2024 3:25 AM [facility] Chloride 98 98 - 107 mMol/L 06/07/2024 3:25 AM [facility] Carbon Dioxide 28 22 - 31 mMol/L 06/07/2024 3:25 AM [facility] Anion Gap 10 5 - 15 mMol/L 06/07/2024 3:25 AM [facility] Calcium 9.4 8.5 - 10.5 mg/dL 06/07/2024 3:25 AM [facility] Est Glomerular Filtration Rate - Male 77 mL/min/1. 73 m?? 06/07/2024 3:25 AM [facility] Comment: [...] AM EST Shahnaz Scanlon MD CHEMISTRY ORDERABLES [facility] [place] [address] * POC, GLUCOSE (06/07/2024 12:08 AM EST) [facility] Signature Glucometer, POC 182 65 - 199 mg/dL 06/07/2024 12:09 AM EST [facility] Comment:Supplemental ranges: <140 mg/dL before meals <180 mg/dL all other times of the day. Blood CAPILLARY BLOOD / Unknown 06/07/2024 12:08 AM EST 06/07/2024 12:09 AM EST Melida Valdes MD POINT OF CARE TEST O NIKA Performing Organization Address City/[facility]/ZIP Co de Phone Number [facility] [place] [address] * POC, GLUCOSE (06/06/2024 8:18 PM EST) Glucometer, POC 143 65 - 199 mg/dL 06/06/2024 8:19 PM EST [facility] Comment:Supplemental ranges: <140 mg/dL before meals <180 mg/dL all other times of the day. Blood CAPILLARY BLOOD / Unknown 06/06/2024 8:18 PM EST 06/06/2024 8:19 PM EST Melida Valdes MD POINT OF CARE TEST O NIKA Performing Organization Address [facility] Co de Phone Number [facility] [place] [address] * POC, GLUCOSE (06/06/2024 3:39 PM EST) Glucometer, POC 147 65 - 199 mg/dL 06/06/2024 3:40 PM EST [facility] Comment:Supplemental ranges: <140 mg/dL before meals <180 mg/dL all other times of the day. Blood CAPILLARY BLOOD / Unknown 06/06/2024 3:39 PM EST 06/06/2024 3:40 PM EST Melida Valdes MD POINT OF CARE TEST O NIKA Performing Organization Address City/[facility] Co de Phone Number [facility] [place] [address] * Potassium (06/06/2024 2:37 PM EST) Potassium 4.3 3.5 - 5.0 mMol/L 06/06/2024 3:01 PM EST [facility] Blood VENOUS BLOOD SPECIMEN / Unknown Venipuncture / Unknown 06/06/2024 2:37 PM EST 06/06/2024 2:42 PM EST Shahnaz Scanlon MD CHEMISTRY ORDERABLES Performing Organization Address City/[facility]/ZIP Co de Phone Number [facility] [place] [address] * (ABNORMAL) POC, GLUCOSE (06/06/2024 1:39 PM EST) Glucometer, POC 317(H) 65 - 199 mg/dL 06/06/2024 1:40 PM EST [facility] Comment:Supplemental ranges: <140 mg/dL before meals <180 mg/dL all other times of the day. Blood CAPILLARY BLOOD / Unknown 06/06/2024 1:39 PM EST 06/06/2024 1:41 PM EST Melida Valdes MD POINT OF CARE TEST O RDERAPIETER Performing Organization Address [facility] Co de Phone Number [facility] [place] [address] * (ABNORMAL) POC, GLUCOSE (06/06/2024 11:34 AM EST) Glucometer, POC 264(H) 65 - 199 mg/dL 06/06/2024 11:35 AM EST [facility] Comment:Supplemental ranges: <140 mg/dL before meals <180 mg/dL all other times of the day. Blood CAPILLARY BLOOD / Unknown 06/06/2024 11:34 AM EST 06/06/2024 11:35 AM EST Melida Valdes MD POINT OF CARE TEST O RDERAPIETER Performing Organization Address City/[facility]/ZIP Co de Phone Number [facility] [place] [address] * Potassium (06/06/2024 10:17 AM EST) Potassium 4.3 3.5 - 5.0 mMol/L 06/06/2024 10:46 AM EST [facility] Blood VENOUS BLOOD SPECIMEN / Unknown Venipuncture / Unknown 06/06/2024 10:17 AM EST 06/06/2024 10:22 AM EST Shahnaz Scanlon MD CHEMISTRY ORDERABLES [facility] [place] [address] * POC, GLUCOSE (06/06/2024 7:57 AM EST) Glucometer, POC 195 65 - 199 mg/dL 06/06/2024 8:03 AM EST [facility] Comment:Supplemental ranges: <140 mg/dL before meals <180 mg/dL all other times of the day. Blood CAPILLARY BLOOD / Unknown 06/06/2024 7:57 AM EST 06/06/2024 8:03 AM EST Melida Valdes MD POINT OF CARE TEST O RDERABLES Performing Organization Address City/[facility]/ZIP Co de Phone Number [facility] [place] [address] * POC, GLUCOSE (06/06/2024 6:53 AM EST) Glucometer, POC 187 65 - 199 mg/dL 06/06/2024 6:53 AM EST [facility] Comment:Supplemental ranges: <140 mg/dL before meals <180 mg/dL all other times of the day. Blood CAPILLARY BLOOD / Unknown 06/06/2024 6:53 AM EST 06/06/2024 6:54 AM EST Melida Valdes MD POINT OF CARE TEST O RDERABLES Performing Organization Address City/[facility]/ZIP Co de Phone Number [facility] [place] [address] * (ABNORMAL) Hemoglobin A1c (06/06/2024 3:33 AM EST) Pathologist [facility] Hemoglobin A1c 7.1(H) 4.3 - 5.6 % 06/06/2024 1:01 PM EST [facility] Comment: Per ADA guidelines, [...] red blood cell turnover may not be pharmaceutical representative of glycemic control. Reference Interval: 4.3 - 5.6% 5.7 - 6.4%: Consistent with prediabetes >=6.5%: Consistent with diagnosis of diabetes mellitus Estimated Average Glucose 157 mg/dL 06/06/2024 1:01 PM EST [facility] Blood VENOUS BLOOD SPECIMEN / Unknown Venipuncture / Unknown 06/06/2024 3:33 AM EST 06/06/2024 3:48 AM EST Alejandra Baumann APRN CHEMISTRY ORDERAB LES Performing Organization Address City/State/[facility] Co de Phone Number [facility] [place] [address] * Heparin (unfractionated) Level (06/06/2024 3:33 AM EST) Pathologist [facility] UF Heparin 0.36 IU/mL 06/06/2024 3:59 AM EST [facility] Comment: Heparin (anti-Xa) levels [...] EST Shahnaz Scanlon MD HEMATOLOGY ORDERABLE S [facility] [place] [address] * (ABNORMAL) CBC (with Diff) (06/06/2024 3:33 AM EST) White Blood Cell 9.81(H) 4.00 - 9.50 x10(3)/mc L 06/06/2024 3:54 AM [facility] Red Blood Cell 4.91 4.58 - 5.54 x10(6)/mc L 06/06/2024 3:54 AM [facility] Hemoglobin 14.6 13.7 - 16.5 g/dL 06/06/2024 3:54 AM [facility] Hematocrit 45.4 40.5 - 48.5 % 06/06/2024 3:54 AM [facility] Mean Cell Volume 92.5 82.9 - 93.1 fL 06/06/2024 3:54 AM [facility] Mean Cell Hemoglobin 29.7 27.5 - 32.1 pg 06/06/2024 3:54 AM [facility] Mean Cell Hemoglobin Concentration 32.2 32.0 - 35.7 g/dL 06/06/2024 3:54 AM [facility] Platelet 199 145 - 357 x10(3)/mc L 06/06/2024 3:54 AM [facility] Mean Platelet Volume 9.5 7.6 - 12.9 fL 06/06/2024 3:54 AM [facility] RDW Standard Deviation 47.2(H) 36.0 - 45.0 fL 06/06/2024 3:54 AM [facility] RDW coefficient of variation 13.9(H) 11.4 - 13.8 % 06/06/2024 3:54 AM [facility] NRBC% auto 0.0 % 06/06/2024 3:54 AM [facility] NRBC Absolute <0.01 <0.01 x10(3)/mc L 06/06/2024 3:54 AM [facility] Neutrophil % 56.8 % 06/06/2024 3:54 AM [facility] Neutrophil Absolute (ANC) - Automated 5.57 1.70 - 6.10 x10(3)/mc L 06/06/2024 3:54 AM [facility] Lymph % 27.6 % 06/06/2024 3:54 AM [facility] Lymph Absolute 2.71 0.90 - 3.20 x10(3)/mc L 06/06/2024 3:54 AM [facility] Monocyte % 11.1 % 06/06/2024 3:54 AM [facility] Monocyte Absolute 1.09(H) 0.30 - 0.90 x10(3)/mc L 06/06/2024 3:54 AM [facility] Eos % 3.0 % 06/06/2024 3:54 AM [facility] Eos Absolute 0.29 0.00 - 0.40 x10(3)/mc L 06/06/2024 3:54 AM [facility] Basophil % 0.9 % 06/06/2024 3:54 AM [facility] Baso Absolute 0.09 0.00 - 0.10 x10(3)/mc L 06/06/2024 3:54 AM [facility] Immature Gran % 0.6 % 3:54 AM [facility] Immature Gran Absolute 0.06(H) 0.00 - 0.04 x10(3)/mc L 06/06/2024 3:54 AM EST [facility] Blood VENOUS BLOOD SPECIMEN / Unknown Venipuncture / Unknown 06/06/2024 3:33 AM EST 06/06/2024 3:48 AM EST Shahnaz Scanlon MD HEMATOLOGY ORDERABLE S Performing Organization Address [facility]/ZIP Co de Phone Number [facility] [place] [address] * Magnesium (06/06/2024 3:33 AM EST) Magnesium 0.92 0.69 - 1.07 mMol/L 06/06/2024 4:17 AM [facility] Blood VENOUS BLOOD SPECIMEN / Unknown Venipuncture / Unknown 06/06/2024 3:33 AM EST 06/06/2024 3:47 AM EST Shahnaz Scanlon MD CHEMISTRY ORDERABLES Performing Organization Address City/[facility] Co de Phone Number [facility] [place] [address] * (ABNORMAL) Basic Metabolic Panel (06/06/2024 3:33 AM EST) Glucose 190 65 - 199 mg/dL 06/06/2024 4:17 AM [facility] Comment:Glucose Concentratio n >=200 mg/dL plus symptoms is consistent with Diabetes Mellitus. Blood Urea Nitrogen 27(H) 10 - 20 mg/dL 06/06/2024 4:17 AM [facility] Creatinine 1.12 0.80 - 1.50 mg/dL 06/06/2024 4:17 AM [facility] Sodium 136 135 - 145 mMol/L 06/06/2024 4:17 AM [facility] Potassium 4.0 3.5 - 5.0 mMol/L 06/06/2024 4:17 AM [facility] Chloride 97(L) 98 - 107 mMol/L 06/06/2024 4:17 AM EST [facility] Carbon Dioxide 26 22 - 31 mMol/L 06/06/2024 4:17 AM [facility] Anion Gap 13 5 - 15 mMol/L 06/06/2024 4:17 AM [facility] Calcium 9.1 8.5 - 10.5 mg/dL 06/06/2024 4:17 AM EST [facility] Est Glomerular Filtration Rate - Male 72 mL/min/1. 73 m?? 06/06/2024 4:17 AM EST [facility] Comment: This patient's estimated [...] AM EST Shahnaz Scanlon MD CHEMISTRY ORDERABLES [facility] [place] [address] * (ABNORMAL) POC, GLUCOSE (06/05/2024 10:31 PM EDT) [facility] Signature Glucometer, POC 238(H) 65 - 199 mg/dL 06/05/2024 10:31 PM EDT [facility] Comment:Supplemental ranges: <140 mg/dL before meals <180 mg/dL all other times of the day. Blood CAPILLARY BLOOD / Unknown 06/05/2024 10:31 PM EDT 06/05/2024 10:31 PM EDT Melida Valdes MD POINT OF CARE TEST O RDERABLES [facility] [place] [address] * (ABNORMAL) POC, GLUCOSE (06/05/2024 4:22 PM EDT) Glucometer, POC 205(H) 65 - 199 mg/dL 06/05/2024 4:22 PM EDT [facility] Comment:Supplemental ranges: <140 mg/dL before meals <180 mg/dL all other times of the day. Blood CAPILLARY BLOOD / Unknown 06/05/2024 4:22 PM EDT 06/05/2024 4:23 PM EDT Melida Valdes MD POINT OF CARE TEST O RDERABLES Performing Organization Address City/[facility]/ZIP Co de Phone Number [facility] [place] [address] * (ABNORMAL) POC, GLUCOSE (06/05/2024 11:34 AM EDT) Glucometer, POC 211(H) 65 - 199 mg/dL 06/05/2024 11:34 AM EDT [facility] Comment:Supplemental ranges: <140 mg/dL before meals <180 mg/dL all other times of the day. Blood CAPILLARY BLOOD / Unknown 06/05/2024 11:34 AM EDT 06/05/2024 11:34 AM EDT Melida Valdes MD POINT OF CARE TEST O RDERABLES [facility] [place] [address] * Potassium (06/05/2024 9:04 AM EDT) Potassium 4.3 3.5 - 5.0 mMol/L 06/05/2024 9:50 AM EDT [facility] Blood VENOUS BLOOD SPECIMEN / Unknown Venipuncture / Unknown 06/05/2024 9:04 AM EDT 06/05/2024 9:21 AM EDT Shahnaz Scanlon MD CHEMISTRY ORDERABLES Performing Organization Address [facility]/ZIP Co de Phone Number [facility] [place] [address] * POC, GLUCOSE (06/05/2024 7:27 AM EDT) Glucometer, POC 166 65 - 199 mg/dL 06/05/2024 7:27 AM EDT [facility] Comment:Supplemental ranges: <140 mg/dL before meals <180 mg/dL all other times of the day. Blood CAPILLARY BLOOD / Unknown 06/05/2024 7:27 AM EDT 06/05/2024 7:27 AM EDT Melida Valdes MD POINT OF CARE TEST O RDERABLES Performing Organization Address [facility]/ZIP Co de Phone Number [facility] [place] [address] * Heparin (unfractionated) Level (06/05/2024 3:44 AM EDT) [facility] Signature UF Heparin 0.44 IU/mL 06/05/2024 4:07 AM EDT [facility] Comment: Heparin (anti-Xa) levels [...] EDT Shahnaz Scanlon MD HEMATOLOGY ORDERABLE S [facility] [place] [address] * (ABNORMAL) CBC (with Diff) (06/05/2024 3:44 AM EDT) White Blood Cell 10.83(H) 4.00 - 9.50 x10(3)/mc L 06/05/2024 3:56 AM EDT [facility] Red Blood Cell 5.07 4.58 - 5.54 x10(6)/mc L 06/05/2024 3:56 AM EDT [facility] Hemoglobin 15.3 13.7 - 16.5 g/dL 06/05/2024 3:56 AM EDT [facility] Hematocrit 46.8 40.5 - 48.5 % 06/05/2024 3:56 AM EDT [facility] Mean Cell Volume 92.3 82.9 - 93.1 fL 06/05/2024 3:56 AM EDT [facility] Mean Cell Hemoglobin 30.2 27.5 - 32.1 pg 06/05/2024 3:56 AM EDT [facility] Mean Cell Hemoglobin Concentration 32.7 32.0 - 35.7 g/dL 06/05/2024 3:56 AM EDT [facility] Platelet 219 145 - 357 x10(3)/mc L 06/05/2024 3:56 AM EDT [facility] Mean Platelet Volume 9.4 7.6 - 12.9 fL 06/05/2024 3:56 AM EDT [facility] RDW Standard Deviation 46.7(H) 36.0 - 45.0 fL 06/05/2024 3:56 AM [facility] RDW coefficient of variation 13.9(H) 11.4 - 13.8 % 06/05/2024 3:56 AM [facility] NRBC% auto 0.0 % 06/05/2024 3:56 AM [facility] NRBC Absolute <0.01 <0.01 x10(3)/mc L 06/05/2024 3:56 AM [facility] Neutrophil % 61.5 % 06/05/2024 3:56 AM [facility] Neutrophil Absolute (ANC) - Automated 6.65(H) 1.70 - 6.10 x10(3)/mc L 06/05/2024 3:56 AM [facility] Lymph % 24.0 % 06/05/2024 3:56 AM [facility] Lymph Absolute 2.60 0.90 - 3.20 x10(3)/mc L 06/05/2024 3:56 AM [facility] Monocyte % 10.9 % 06/05/2024 3:56 AM [facility] Monocyte Absolute 1.18(H) 0.30 - 0.90 x10(3)/mc L 06/05/2024 3:56 AM [facility] Eos % 2.2 % 06/05/2024 3:56 AM [facility] Eos Absolute 0.24 0.00 - 0.40 x10(3)/mc L 06/05/2024 3:56 AM [facility] Basophil % 0.8 % 06/05/2024 3:56 AM [facility] Baso Absolute 0.09 0.00 - 0.10 x10(3)/mc L 06/05/2024 3:56 AM [facility] Immature Gran % 0.6 % 3:56 AM [facility] Immature Gran Absolute 0.07(H) 0.00 - 0.04 x10(3)/mc L 06/05/2024 3:56 AM EDT [facility] Blood VENOUS BLOOD SPECIMEN / Unknown Venipuncture / Unknown 06/05/2024 3:44 AM EDT 06/05/2024 3:50 AM EDT Shahnaz Scanlon MD HEMATOLOGY ORDERABLE S [facility] [place] [address] * Magnesium (06/05/2024 3:44 AM EDT) Magnesium 0.92 0.69 - 1.07 mMol/L 06/05/2024 4:20 AM EDT [facility] Blood VENOUS BLOOD SPECIMEN / Unknown Venipuncture / Unknown 06/05/2024 3:44 AM EDT 06/05/2024 3:50 AM EDT Shahnaz Scanlon MD CHEMISTRY ORDERABLES Performing Organization Address City/[facility]/ZIP Co de Phone Number [facility] [place] [address] * (ABNORMAL) Basic Metabolic Panel (06/05/2024 3:44 AM EDT) Glucose 155 65 - 199 mg/dL 06/05/2024 4:20 AM EDT [facility] Comment:Glucose Concentratio n >=200 mg/dL plus symptoms is consistent with Diabetes Mellitus. Blood Urea Nitrogen 25(H) 10 - 20 mg/dL 06/05/2024 4:20 AM EDT [facility] Creatinine 1.16 0.80 - 1.50 mg/dL 06/05/2024 4:20 AM EDT [facility] Sodium 136 135 - 145 mMol/L 06/05/2024 4:20 AM EDT [facility] Potassium 3.9 3.5 - 5.0 mMol/L 06/05/2024 4:20 AM EDT [facility] Chloride 95(L) 98 - 107 mMol/L 06/05/2024 4:20 AM EDT [facility] Carbon Dioxide 29 22 - 31 mMol/L 06/05/2024 4:20 AM EDT [facility] Anion Gap 12 5 - 15 mMol/L 06/05/2024 4:20 AM EDT [facility] Calcium 9.2 8.5 - 10.5 mg/dL 06/05/2024 4:20 AM EDT [facility] LABORATORY Est Glomerular Filtration Rate - Male 69 mL/min/1. 73 m?? 06/05/2024 4:20 AM EDT [facility] Comment: This patient's estimated [...] AM EDT Shahnaz Scanlon MD CHEMISTRY ORDERABLES [facility] [place] [address] * Potassium (06/04/2024 10:34 PM EDT) Potassium 3.7 3.5 - 5.0 mMol/L 06/04/2024 11:03 PM EDT [facility] Blood VENOUS BLOOD SPECIMEN / Unknown Venipuncture / Unknown 06/04/2024 10:34 PM EDT 06/04/2024 10:39 PM EDT Shahnaz Scanlon MD CHEMISTRY ORDERABLES Performing Organization Address [facility]/ZIP Co de Phone Number [facility] [place] [address] * POC, GLUCOSE (06/04/2024 7:43 PM EDT) Glucometer, POC 175 65 - 199 mg/dL 06/04/2024 7:43 PM EDT [facility] Comment:Supplemental ranges: <140 mg/dL before meals <180 mg/dL all other times of the day. Blood CAPILLARY BLOOD / Unknown 06/04/2024 7:43 PM EDT 06/04/2024 7:43 PM EDT Melida Valdes MD POINT OF CARE TEST O RDERABLES Performing Organization Address [facility] Co de Phone Number [facility] [place] [address] * Potassium (06/04/2024 4:35 PM EDT) Potassium 4.0 3.5 - 5.0 mMol/L 06/04/2024 5:32 PM EDT [facility] Blood VENOUS BLOOD SPECIMEN / Unknown Venipuncture / Unknown 06/04/2024 4:35 PM EDT 06/04/2024 4:40 PM EDT Shahnaz Scanlon MD CHEMISTRY ORDERABLES Performing Organization Address [facility] Co de Phone Number [facility] [place] [address] * POC, GLUCOSE (06/04/2024 3:26 PM EDT) Glucometer, POC 154 65 - 199 mg/dL 06/04/2024 3:26 PM EDT [facility] Comment:Supplemental ranges: <140 mg/dL before meals <180 mg/dL all other times of the day. Blood CAPILLARY BLOOD / Unknown 06/04/2024 3:26 PM EDT 06/04/2024 3:27 PM EDT Melida Valdes MD POINT OF CARE TEST O RDERABLES Performing Organization Address City/[facility]/ZIP Co de Phone Number [facility] [place] [address] * POC, GLUCOSE (06/04/2024 11:09 AM EDT) Glucometer, POC 188 65 - 199 mg/dL 06/04/2024 11:09 AM EDT [facility] Comment:Supplemental ranges: <140 mg/dL before meals <180 mg/dL all other times of the day. Blood CAPILLARY BLOOD / Unknown 06/04/2024 11:09 AM EDT 06/04/2024 11:09 AM EDT Delroy Fofana MD POINT OF CARE TEST ORDERABLES Performing Organization Address [facility] Co de Phone Number [facility] [place] [address] * Heparin (unfractionated) Level (06/04/2024 10:41 AM EDT) UF Heparin 0.43 IU/mL 06/04/2024 11:06 AM EDT [facility] Comment: Heparin (anti-Xa) levels [...] MD HEMATOLOGY ORDERABLE S Performing Organization Address City/[facility]/ZIP Co de Phone Number [facility] [place] [address] * Potassium (06/04/2024 10:41 AM EDT) Potassium 4.0 3.5 - 5.0 mMol/L 06/04/2024 11:11 AM EDT [facility] Blood VENOUS BLOOD SPECIMEN / Unknown Venipuncture / Unknown 06/04/2024 10:41 AM EDT 06/04/2024 10:46 AM EDT Shahnaz Scanlon MD CHEMISTRY ORDERABLES Performing Organization Address [facility] Co de Phone Number [facility] [place] [address] * POC, GLUCOSE (06/04/2024 7:11 AM EDT) Glucometer, POC 182 65 - 199 mg/dL 06/04/2024 7:12 AM EDT [facility] Comment:Supplemental ranges: <140 mg/dL before meals <180 mg/dL all other times of the day. Blood CAPILLARY BLOOD / Unknown 06/04/2024 7:11 AM EDT 06/04/2024 7:12 AM EDT Delroy Fofana MD POINT OF CARE TEST ORDERABLES Performing Organization Address City/[facility]/ZIP Co de Phone Number [facility] [place] [address] * Heparin (unfractionated) Level (06/04/2024 4:38 AM EDT) UF Heparin 0.41 IU/mL 06/04/2024 5:19 AM EDT [facility] Comment: Heparin (anti-Xa) levels [...] City/State/[facility] Co de Phone Number [facility] [place] [address] * (ABNORMAL) CBC (with Diff) (06/04/2024 4:38 AM EDT) White Blood Cell 11.45(H) 4.00 - 9.50 x10(3)/mc L 06/04/2024 5:12 AM EDT [facility] Red Blood Cell 5.35 4.58 - 5.54 x10(6)/mc L 06/04/2024 5:12 AM EDT [facility] Hemoglobin 16.0 13.7 - 16.5 g/dL 06/04/2024 5:12 AM EDT [facility] Hematocrit 49.6(H) 40.5 - 48.5 % 06/04/2024 5:12 AM EDT [facility] Mean Cell Volume 92.7 82.9 - 93.1 fL 06/04/2024 5:12 AM EDT [facility] Mean Cell Hemoglobin 29.9 27.5 - 32.1 pg 06/04/2024 5:12 AM [facility] Mean Cell Hemoglobin Concentration 32.3 32.0 - 35.7 g/dL 06/04/2024 5:12 AM [facility] Platelet 222 145 - 357 x10(3)/mc L 06/04/2024 5:12 AM [facility] Mean Platelet Volume 9.5 7.6 - 12.9 fL 06/04/2024 5:12 AM [facility] RDW Standard Deviation 47.6(H) 36.0 - 45.0 fL 06/04/2024 5:12 AM [facility] RDW coefficient of variation 14.1(H) 11.4 - 13.8 % 06/04/2024 5:12 AM [facility] NRBC% auto 0.0 % 06/04/2024 5:12 AM [facility] NRBC Absolute <0.01 <0.01 x10(3)/mc L 06/04/2024 5:12 AM [facility] Neutrophil % 60.3 % 06/04/2024 5:12 AM [facility] Neutrophil Absolute (ANC) - Automated 6.91(H) 1.70 - 6.10 x10(3)/mc L 06/04/2024 5:12 AM [facility] Lymph % 25.1 % 06/04/2024 5:12 AM [facility] Lymph Absolute 2.87 0.90 - 3.20 x10(3)/mc L 06/04/2024 5:12 AM [facility] Monocyte % 10.6 % 06/04/2024 5:12 AM [facility] Monocyte Absolute 1.21(H) 0.30 - 0.90 x10(3)/mc L 06/04/2024 5:12 AM [facility] Eos % 2.8 % 06/04/2024 5:12 AM [facility] Eos Absolute 0.32 0.00 - 0.40 x10(3)/mc L 06/04/2024 5:12 AM EDT [facility] Basophil % 0.7 % 06/04/2024 5:12 AM EDT [facility] Baso Absolute 0.08 0.00 - 0.10 x10(3)/mc L 06/04/2024 5:12 AM EDT [facility] Immature Gran % 0.5 % 5:12 AM EDT [facility] Immature Gran Absolute 0.06(H) 0.00 - 0.04 x10(3)/mc L 06/04/2024 5:12 AM EDT [facility] Blood VENOUS BLOOD SPECIMEN / Unknown Venipuncture / Unknown 06/04/2024 4:38 AM EDT 06/04/2024 5:07 AM EDT Shahnaz Scanlon MD HEMATOLOGY ORDERABLE S [facility] [place] [address] * Magnesium (06/04/2024 4:38 AM EDT) Magnesium 0.84 0.69 - 1.07 mMol/L 06/04/2024 5:35 AM EDT [facility] Blood VENOUS BLOOD SPECIMEN / Unknown Venipuncture / Unknown 06/04/2024 4:38 AM EDT 06/04/2024 5:07 AM EDT Shahnaz Scanlon MD CHEMISTRY ORDERABLES [facility] [place] [address] * (ABNORMAL) Basic Metabolic Panel (06/04/2024 4:38 AM EDT) Glucose 118 65 - 199 mg/dL 06/04/2024 5:35 AM EDT [facility] Comment:Glucose Concentratio n >=200 mg/dL plus symptoms is consistent with Diabetes Mellitus. Blood Urea Nitrogen 22(H) 10 - 20 mg/dL 06/04/2024 5:35 AM [facility] Creatinine 1.22 0.80 - 1.50 mg/dL 06/04/2024 5:35 AM [facility] Sodium 137 135 - 145 mMol/L 06/04/2024 5:35 AM [facility] Potassium 3.6 3.5 - 5.0 mMol/L 06/04/2024 5:35 AM [facility] Chloride 97(L) 98 - 107 mMol/L 06/04/2024 5:35 AM [facility] Carbon Dioxide 29 22 - 31 mMol/L 06/04/2024 5:35 AM [facility] Anion Gap 11 5 - 15 mMol/L 06/04/2024 5:35 AM [facility] Calcium 9.0 8.5 - 10.5 mg/dL 06/04/2024 5:35 AM [facility] Est Glomerular Filtration Rate - Male 65 mL/min/1. 73 m?? 06/04/2024 5:35 AM [facility] Comment: This patient's estimated [...] Scanlon MD CHEMISTRY ORDERABLES Performing Organization Address [facility] Co de Phone Number [facility] [place] [address] * Heparin (unfractionated) Level (06/03/2024 8:58 PM EDT) UF Heparin 0.27 IU/mL 06/03/2024 9:33 PM EDT [facility] Comment: Heparin (anti-Xa) levels [...] MD HEMATOLOGY ORDERABLE S Performing Organization Address [facility]/ZIP Co de Phone Number [facility] [place] [address] * POC, GLUCOSE (06/03/2024 8:05 PM EDT) Glucometer, POC 136 65 - 199 mg/dL 06/03/2024 8:05 PM EDT [facility] Comment:Supplemental ranges: <140 mg/dL before meals <180 mg/dL all other times of the day. Blood CAPILLARY BLOOD / Unknown 06/03/2024 8:05 PM EDT 06/03/2024 8:05 PM EDT Delroy Fofana MD POINT OF CARE TEST ORDERABLES Performing Organization Address [facility]/ZIP Co de Phone Number [facility] [place] [address] * POC, GLUCOSE (06/03/2024 5:48 PM EDT) Glucometer, POC 191 65 - 199 mg/dL 06/03/2024 5:48 PM EDT [facility] Comment:Supplemental ranges: <140 mg/dL before meals <180 mg/dL all other times of the day. Blood CAPILLARY BLOOD / Unknown 06/03/2024 5:48 PM EDT 06/03/2024 5:49 PM EDT Delroy Fofana MD POINT OF CARE TEST ORDERABLES Performing Organization Address [facility] Co de Phone Number [facility] [place] [address] * CT Chest wo Contrast (Generic) (06/03/2024 4:33 PM EDT) WORKSTATION ID [id number] RAD Anatomical Region Laterality Modality Chest Computed Tomogra phy Impressions 06/03/2024 4:47 PM EDT Cardiomegaly. Biventricular ICD leads in place. Thank you for letting us participate in the care of this patient. ??If you are a health care provider and have any questions regarding this report, please contact the number below. ??For patients who have questions please contact the health direct support professional caregiver that requested your imaging first. ? Narrative [...] patients who have questions please contactthe health direct support professional caregiver that requested your imaging first. Electronically signed by: Stuart Aponte MD, [facility]([phone]), at 06/03/2024 4:47 PM Bobby Loja MD IMG CT ORDERABLES * Carotid Duplex, Bilateral (06/03/2024 2:19 PM EDT) VB Text Report Department: Vascular Surgery Lab Patient: [id number] (GEORGE MEHTA) CPT: 26167 Referring Physician: BOBBY LOJA ?? Phone: Indications: [...] Heparin 0.15 IU/mL 06/03/2024 1:13 PM EDT [facility] Comment: Heparin (anti-Xa) levels [...] MD HEMATOLOGY ORDERABLE S Performing Organization Address [facility] Co de Phone Number [facility] [place] [address] * POC, GLUCOSE (06/03/2024 11:14 AM EDT) Glucometer, POC 166 65 - 199 mg/dL 06/03/2024 11:14 AM EDT [facility] Comment:Supplemental ranges: <140 mg/dL before meals <180 mg/dL all other times of the day. Blood CAPILLARY BLOOD / Unknown 06/03/2024 11:14 AM EDT 06/03/2024 11:14 AM EDT Delroy Fofana MD POINT OF CARE TEST ORDERABLES Performing Organization Address [facility] Co de Phone Number [facility] [place] [address] * (ABNORMAL) Troponin-T, High Sensitivity 3 Hour (06/03/2024 10:06 AM EDT) Troponin-T, High Sensitivity 266(H) <=22 ng/L 06/03/2024 10:50 AM EDT [facility] Comment: This patient's troponin [...] troponin value can be found in the [facility] Test Catalog Troponin - https://[email or web address]-.testcatalog.org/catalogs/565/files/52970 Reference: Fourth [place] Definition of Myocardial Infarction. Journal of the [place] [employer] 2018;72:8645-1505 Troponin-T, HS 3 hr delta 06/03/2024 10:50 AM EDT [facility] Comment:Delta troponin value not calculated, sample collected outside of delta calculation time limit. Blood VENOUS BLOOD SPECIMEN / Unknown IP Care Team Draw / Unknown 06/03/2024 10:06 AM EDT 06/03/2024 10:15 AM EDT Delroy Fofana MD CHEMISTRY ORDERABLE S Performing Organization Address City/State/[facility] Co de Phone Number [facility] [place] [address] * ECHO COMPLETE W CONTRAST (06/03/2024 8:46 AM EDT) Anatomical Region Laterality Modality Cardiac Other 06/03/2024 6:52 AM EDT Narrative 06/03/2024 10:32 AM EDT [address] [place], [place] [address] ? Echocardiogram Report Name: GEORGE MEHTA ?Study Date: 06/03/2024 06:52 AM : 1955 ? Height: 168 cm ? Account: [id number] Age: 69 yrs ? Weight: 102 kg Gender: Male ?BSA: 2.1 m2 Ordering Physician: SHAHNAZ SCANLON Referring Physician: NEHAL QUINTERO Performed By: Sara Kebede RDCS Reason For Study: STEMI Exam Location: [facility]. Interpretation Summary -Left ventricular systolic function [...] fellow performed study of today's date). Procedure Complete-[id number]. Image enhancement Optison was used for left [...] Note Jonnie Jordan MD - 06/03/2024 [address] [place] [address] Echocardiogram Report Name: GEORGE MEHTA Raad Study Date: :52 AM : 1955 Height: 168 cm Account: [id number] Age: 69 yrs Weight: 102 kg Gender: Male BSA: 2.1 m2 Ordering Physician: SHAHNAZ SCANLON Referring Physician: NEHAL QUINTERO Performed By: Sara Kebede RDCS Reason For Study: STEMI Exam Location: [facility]. Interpretation Summary -Left ventricular systolic function [...] a fellow performed study of's date). Procedure Complete-[id number]. Image enhancement Optison was used for left [...] 289(H) <=22 ng/L 06/03/2024 9:26 AM EDT [facility] Comment: This patient's troponin [...] troponin value can be found in the [facility] Test Catalog Troponin - https://[email or web address].org/catalogs/565/files/90943 Reference: Fourth [place] Definition of Myocardial Infarction. Journal of the [place] [employer] 2018;72:9232-0307 Troponin-T, HS 1 hr delta 5 ng/L 06/03/2024 9:26 AM EDT [facility] Comment:The 1 hour Troponin T delta value is the absolute difference between the Troponin T concentrations of the initial and subsequent sample collected between 45 - 120 minutes following the initial collection. Blood VENOUS BLOOD SPECIMEN / Unknown IP Care Team Draw / Unknown 06/03/2024 8:27 AM EDT 06/03/2024 8:37 AM EDT Delroy Fofana MD CHEMISTRY ORDERABLE S [facility] [place] [address] * POC, GLUCOSE (06/03/2024 7:54 AM EDT) Glucometer, POC 195 65 - 199 mg/dL 06/03/2024 7:55 AM EDT [facility] Comment:Supplemental ranges: <140 mg/dL before meals <180 mg/dL all other times of the day. Blood CAPILLARY BLOOD / Unknown 06/03/2024 7:54 AM EDT 06/03/2024 7:55 AM EDT Nuha Rojo MD POINT OF CARE TEST ORDERABLES [facility] [place] [address] * (ABNORMAL) Troponin-T, High Sensitivity (06/03/2024 7:39 AM EDT) Troponin-T, High Sensitivity Initial 284(H) <=22 ng/L 06/03/2024 8:29 AM EDT [facility] Comment: This patient's troponin [...] troponin value can be found in the [facility] Test Catalog Troponin - https://[email or web address].org/catalogs/565/files/97596 Reference: Fourth [place] Definition of Myocardial Infarction. Journal of the [place] [employer] 2018;72:3145-4717 Blood VENOUS BLOOD SPECIMEN / Unknown IP Care Team Draw / Unknown 06/03/2024 7:39 AM EDT 06/03/2024 7:48 AM EDT Delroy Fofana MD CHEMISTRY ORDERABLE S [facility] [place] [address] * (ABNORMAL) Troponin-T, High Sensitivity 3 Hour (06/03/2024 5:11 AM EDT) Troponin-T, High Sensitivity 254(H) <=22 ng/L 06/03/2024 5:49 AM EDT [facility] Comment: This patient's troponin [...] troponin value can be found in the [facility] Test Catalog Troponin - https://[email or web address].testcatalog.org/catalogs/565/files/37564 Reference: Fourth [place] Definition of Myocardial Infarction. Journal of the [place] [employer] 2018;72:3232-1014 Troponin-T, HS 3 hr delta 46 ng/L 06/03/2024 5:49 AM EDT [facility] Comment:The 3 hour Troponin T delta value is the absolute difference between the Troponin T concentrations of the initial and subsequent sample collected between 2 h: 45 min and 6 h following the initial collection Blood VENOUS BLOOD SPECIMEN / Unknown IP Care Team Draw / Unknown 06/03/2024 5:11 AM EDT 06/03/2024 5:20 AM EDT Shahnaz Scanlon MD CHEMISTRY ORDERABLES [facility] [place] [address] * (ABNORMAL) Troponin-T, High Sensitivity 1 Hour (06/03/2024 3:07 AM EDT) Troponin-T, High Sensitivity 218(H) <=22 ng/L 06/03/2024 3:39 AM EDT [facility] Comment: This patient's troponin [...] troponin value can be found in the [facility] Test Catalog Troponin - https://[facility].testcatalog.org/catalogs/565/files/46648 Reference: Fourth [place] Definition of Myocardial Infarction. Journal of the [place] [employer] 2018;72:4498-2807 Troponin-T, HS 1 hr delta 10 ng/L 06/03/2024 3:39 AM EDT [facility] Comment:The 1 hour Troponin T delta value is the absolute difference between the Troponin T concentrations of the initial and subsequent sample collected between 45 - 120 minutes following the initial collection. Blood VENOUS BLOOD SPECIMEN / Unknown IP Care Team Draw / Unknown 06/03/2024 3:07 AM EDT 06/03/2024 3:12 AM EDT Shahnaz Scanlon MD CHEMISTRY ORDERABLES [facility] [place] [address] * XR Chest One View (06/03/2024 2:41 AM EDT) WORKSTATION ID [id number] RAD Anatomical Region Laterality Modality Chest N/A Digital Radiogra phy Impressions 06/03/2024 3:06 AM EDT No radiographically evident acute cardiopulmonary process. Thank you for letting us participate in the care of this patient. ??If you are a health care provider and have any questions regarding this report, please contact the number below. ??For patients who have questions please contact the health direct support professional caregiver that requested your imaging first. ? Electronically signed by: Corazon Mauro MD, [facility] ([phone]), at 06/03/2024 3:06 AM Narrative 06/03/2024 3:06 [...] patients who have questions please contactthe health direct support professional caregiver that requested your imaging first. Electronically signed by: Corazon Mauro MD, [facility]([phone]), at 06/03/2024 3:06 AM Shahnaz Scanlon MD IMG DX ORDERABLES * Heparin (unfractionated) Level (06/03/2024 2:13 AM EDT) UF Heparin 0.56 IU/mL 06/03/2024 4:13 AM EDT [facility] Comment: Heparin (anti-Xa) levels [...] EDT Shahnaz Scanlon MD HEMATOLOGY ORDERABLE S [facility] [place] [address] * (ABNORMAL) Troponin-T, High Sensitivity (06/03/2024 2:13 AM EDT) Troponin-T, High Sensitivity Initial 208(H) <=22 ng/L 06/03/2024 3:02 AM EDT [facility] Comment: This patient's troponin [...] troponin value can be found in the [facility] Test Catalog Troponin - https://[email or web address].testcatalog.org/catalogs/565/files/57890 Reference: Fourth [place] Definition of Myocardial Infarction. Journal of the [place] [employer] 2018;72:0386-9175 Blood VENOUS BLOOD SPECIMEN / Unknown IP Care Team Draw / Unknown 06/03/2024 2:13 AM EDT 06/03/2024 2:32 AM EDT Shahnaz Scanlon MD CHEMISTRY ORDERABLES Performing Organization Address City/[facility]/ZIP Co de Phone Number [facility] [place] [address] * Magnesium (06/03/2024 2:13 AM EDT) Magnesium 0.86 0.69 - 1.07 mMol/L 06/03/2024 3:02 AM EDT [facility] Blood VENOUS BLOOD SPECIMEN / Unknown IP Care Team Draw / Unknown 06/03/2024 2:13 AM EDT 06/03/2024 2:32 AM EDT Shahnaz Scanlon MD CHEMISTRY ORDERABLES [facility] [place] [address] * Basic Metabolic Panel (06/03/2024 2:13 AM EDT) Glucose 126 65 - 199 mg/dL 06/03/2024 3:02 AM [facility] Comment:Glucose Concentratio n >=200 mg/dL plus symptoms is consistent with Diabetes Mellitus. Blood Urea Nitrogen 20 10 - 20 mg/dL 06/03/2024 3:02 AM [facility] Creatinine 1.13 0.80 - 1.50 mg/dL 06/03/2024 3:02 AM [facility] Sodium 139 135 - 145 mMol/L 06/03/2024 3:02 AM [facility] Potassium 4.2 3.5 - 5.0 mMol/L 06/03/2024 3:02 AM [facility] Chloride 101 98 - 107 mMol/L 06/03/2024 3:02 AM [facility] Carbon Dioxide 26 22 - 31 mMol/L 06/03/2024 3:02 AM [facility] Anion Gap 12 5 - 15 mMol/L 06/03/2024 3:02 AM [facility] Calcium 9.8 8.5 - 10.5 mg/dL 06/03/2024 3:02 AM [facility] Est Glomerular Filtration Rate - Male 71 mL/min/1. 73 m?? 06/03/2024 3:02 AM [facility] Comment: This patient's estimated [...] AM EDT Shahnaz Scanlon MD CHEMISTRY ORDERABLES [facility] [place] [address] * (ABNORMAL) CBC (with Diff) (06/03/2024 2:13 AM EDT) White Blood Cell 11.16(H) 4.00 - 9.50 x10(3)/mc L 06/03/2024 2:37 AM EDT [facility] Red Blood Cell 5.09 4.58 - 5.54 x10(6)/mc L 06/03/2024 2:37 AM EDT [facility] Hemoglobin 15.0 13.7 - 16.5 g/dL 06/03/2024 2:37 AM EDT [facility] Hematocrit 47.4 40.5 - 48.5 % 06/03/2024 2:37 AM EDT [facility] Mean Cell Volume 93.1 82.9 - 93.1 fL 06/03/2024 2:37 AM EDT [facility] [facility] Mean Cell Hemoglobin 29.5 27.5 - 32.1 pg 06/03/2024 2:37 AM EDT [facility] Mean Cell Hemoglobin Concentration 31.6(L) 32.0 - 35.7 g/dL 06/03/2024 2:37 AM EDT [facility] Platelet 217 145 - 357 x10(3)/mc L 06/03/2024 2:37 AM EDT [facility] Mean Platelet Volume 9.5 7.6 - 12.9 fL 06/03/2024 2:37 AM EDT [facility] RDW Standard Deviation 49.0(H) 36.0 - 45.0 fL 06/03/2024 2:37 AM EDT [facility] RDW coefficient of variation 14.1(H) 11.4 - 13.8 % 06/03/2024 2:37 AM EDT [facility] NRBC% auto 0.0 % 06/03/2024 2:37 AM [facility] NRBC Absolute <0.01 <0.01 x10(3)/mc L 06/03/2024 2:37 AM [facility] Neutrophil % 58.4 % 06/03/2024 2:37 AM [facility] Neutrophil Absolute (ANC) - Automated 6.51(H) 1.70 - 6.10 x10(3)/mc L 06/03/2024 2:37 AM [facility] Lymph % 29.9 % 06/03/2024 2:37 AM [facility] Lymph Absolute 3.34(H) 0.90 - 3.20 x10(3)/mc L 06/03/2024 2:37 AM [facility] Monocyte % 8.1 % 06/03/2024 2:37 AM [facility] Monocyte Absolute 0.90 0.30 - 0.90 x10(3)/mc L 06/03/2024 2:37 AM [facility] Eos % 2.4 % 06/03/2024 2:37 AM [facility] Eos Absolute 0.27 0.00 - 0.40 x10(3)/mc L 06/03/2024 2:37 AM [facility] Basophil % 0.8 % 06/03/2024 2:37 AM [facility] Baso Absolute 0.09 0.00 - 0.10 x10(3)/mc L 06/03/2024 2:37 AM [facility] Immature Gran % 0.4 % 2:37 AM [facility] Immature Gran Absolute 0.05(H) 0.00 - 0.04 x10(3)/mc L 06/03/2024 2:37 AM [facility] Blood VENOUS BLOOD SPECIMEN / Unknown IP Care Team Draw / Unknown 06/03/2024 2:13 AM EDT 06/03/2024 2:31 AM EDT Shahnaz Scanlon MD HEMATOLOGY ORDERABLE S [facility] [place] [address] * Lipid Panel (Reflex Direct LDL) (06/03/2024 2:13 AM EDT) Cholesterol, Total 76 mg/dL 06/03/2024 3:02 AM EDT [facility] Comment: Desirable: < 200 mg/dL Borderline High: 200 - 239 mg/dL High: > or = 240 mg/dL Triglyceride 75 mg/dL 06/03/2024 3:02 AM EDT [facility] Comment: Normal: <150 mg/dL Borderline High: 150-199 mg/dL High: 200-499 mg/dL Very High: > or =500 mg/dL HDL Cholesterol 39 mg/dL 3:02 AM EDT [facility] Comment:Males: High Risk: <4 0 mg/dL LDL Cholesterol 21 mg/dL 3:02 AM EDT [facility] Comment: Desirable: <100 mg/dL Above Desirable: 100-129 mg/dL Borderline High: 130-159 mg/dL High: 160-189 mg/dL Very High: > or =190 mg/dL Note: LDL calculation updated to the NIH LDL formula as of 03/07/2024 Non-HDL Cholesterol 37 mg/dL 06/03/2024 3:02 AM EDT [facility] Comment: Desirable: <130 mg/dL Above Desirable: 130-159 mg/dL Borderline High: 160-189 mg/dL High: 190-219 mg/dL Very High: > or = 220 mg/dL Blood VENOUS BLOOD SPECIMEN / Unknown IP Care Team Draw / Unknown 06/03/2024 2:13 AM EDT 06/03/2024 2:32 AM EDT Narrative [facility] - 06/03/2024 3:02 AM [...] ACC/AHA Guidelines (most recently Bruce et al. [facility] 05/07/22): * For individuals with [...] Scanlon MD CHEMISTRY ORDERABLES Performing Organization Address [facility] Co de Phone Number [facility] [place] [address] * (ABNORMAL) APTT (06/03/2024 2:13 AM EDT) Partial Thromboplastin Time 105([facility]) 25 - 37 sec 06/03/2024 4:13 AM EDT [facility] Comment: The PTT is [...] MD HEMATOLOGY ORDERABLE S Performing Organization Address [facility] de Phone Number [facility] [place] [address] * Prothrombin Time (06/03/2024 2:13 AM EDT) Prothrombin Time 11.5 9.4 - 12.5 sec 06/03/2024 4:13 AM EDT [facility] International Normalization Ratio 1.0 <=4.9 06/03/2024 4:13 AM EDT [facility] Comment: An INR < [...] MD HEMATOLOGY ORDERABLE S Performing Organization Address [facility]/ZIP Co de Phone Number [facility] [place] [address] * Hepatic Function Panel (06/03/2024 2:13 AM EDT) Albumin 3.8 3.2 - 5.2 g/dL 06/03/2024 3:02 AM EDT [facility] Aspartate Aminotransferase 20 <=39 unit/L 06/03/2024 3:02 AM EDT [facility] Alanine Aminotransferase 12 0 - 55 unit/L 06/03/2024 3:02 AM EDT [facility] Alkaline Phosphatase 76 40 - 130 unit/L 06/03/2024 3:02 AM EDT [facility] Bilirubin, Total 0.4 <=1.3 mg/dL 06/03/2024 3:02 AM EDT [facility] Bilirubin, Direct <0.2 0.0 - 0.3 mg/dL 06/03/2024 3:02 AM EDT [facility] Protein, Total 7.0 6.1 - 8.0 g/dL 06/03/2024 3:02 AM EDT [facility] Blood VENOUS BLOOD SPECIMEN / Unknown IP Care Team Draw / Unknown 06/03/2024 2:13 AM EDT 06/03/2024 2:32 AM EDT Shahnaz Scanlon MD CHEMISTRY ORDERABLES [facility] [place] [address] * (ABNORMAL) pro-Brain Natriuretic Peptide (06/03/2024 2:13 AM EDT) NT-proBNP 1,628(H) <=124 pg/mL 06/03/2024 4:15 AM EDT [facility] Blood VENOUS BLOOD SPECIMEN / Unknown IP Care Team Draw / Unknown 06/03/2024 2:13 AM EDT 06/03/2024 2:32 AM EDT Shahnaz Scanlon MD CHEMISTRY ORDERABLES Performing Organization Address [facility]/ZIP Co de Phone Number [facility] [place] [address] * Phosphorus (06/03/2024 2:13 AM EDT) Phosphorus 4.4 2.5 - 4.5 mg/dL 06/03/2024 3:02 AM EDT [facility] Blood VENOUS BLOOD SPECIMEN / Unknown IP Care Team Draw / Unknown 06/03/2024 2:13 AM EDT 06/03/2024 2:32 AM EDT Shahnaz Scanlon MD CHEMISTRY ORDERABLES Performing Organization Address [facility] Co de Phone Number [facility] [place] [address] * EKG 12 Lead (06/03/2024 1:45 AM EDT) Ventricular rate 63 BPM MUSE SYSTEM Atrial Rate 63 BPM MUSE SYSTEM P-R Interval 168 ms MUSE SYSTEM QRS Duration 96 ms MUSE SYSTEM Q-T Interval 400 ms MUSE SYSTEM QTC Calculated (Bezet) 409 ms MUSE SYSTEM Calculated P [place] 65 degrees MUSE SYSTEM Calculated R [place] 70 degrees MUSE SYSTEM Calculated T [place] -86 degrees MUSE SYSTEM INTERPRETATION Atrial-sensed ventricular-paced rhythm Abnormal ECG No previous ECGs available I personally reviewed the tracing and edited the fellows interpretation Confirmed by fellow Sunni Agudelo ([id number]) on 06/04/2024 3:55:40 PM Confirmed by MD Tamia, Stuart Perry ([id number]) on 06/05/2024 11:46:48 AM MUSE SYSTEM 06/03/2024 1:45 AM EDT 06/05/2024 11:46 AM EDT Shahnaz Scanlon MD ECG ORDERABLES Performing Organization Address [facility]/ZIP Co de Phone Number MUSE SYSTEM * CARDIAC CATHETERIZATION (06/03/2024 12:42 AM EDT) Anatomical Region Laterality Modality Other Narrative 06/04/2024 2:22 PM EDT ?[facility] ? Cardiac Catheterization/Intervention Report ? Patient Name: Tyson, George L. ? Procedure Date: 06/02/2024 ? A #: [id number] ? Primary Physician: Nuha Shen I ? Case #: [id number] ? File Name: [id number] ? Catheterization Order Number: [id number] ? [facility] ? Final Report [place], [place] ? Patient Name: ? George L. Tyson ? ID#: ?[id number] ? : ?1955 ? Procedure Date: ? June 02, 2024 ? Case #: ? [id number] ? Room: ? 5 ? Case Physician: [...] procedure was Emergent. 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 ??Imaging was [...] 3.5 guiding catheter and a 3.5 Fr [place] 20 Mhz using ?Manual pullback. ??Imaging was [...] Procedure Note Nuha Shen MD - 07/20/2024 [facility] Cardiac Catheterization/Intervention Report Patient Name: Tyson Georgedennis Multani Procedure Date: 06/02/2024 A #: [id number] Primary Physician: Nuha Shen I Case #: [id number] File Name: [id number] Catheterization Order Number: [id number] [facility] FinalReport [place], [place] Patient Name: George Mehta ID#:[id number] :1955 Procedure Date: June 02, 2024 Case [...] was designated as ASA Class IV. The [facility] clinicalfrailty scale is 5: Mildly Frail. Diagnostic Tests: Electrocardiography: EKG was assessed by ECG. EKG was Abnormal. EKG showed STDeviation >= 0.5 mm. Medications Prior to Procedure: Sacubitril and Valsartan, Aspirin, Beta Erik, Statin and Thrombolytic (any). Indications for Diagnostic Cath: The priority of the diagnostic procedure was Emergent. Theindication for the laborer cement gun placing visit is ACS less than or equal [...] units of heparin were administered. A total [id number] of Omnipaque were opened, 84cc of Omnipaque were administered [id number] of Omnipaque were wasted. Radiation: Fluoro time [...] 3.5 guiding catheter and a 3.5 Fr [place] [facility] [place] 20 Mhz usingManual pullback. Imaging was successful. [...] 3.5 guiding catheter and a 3.5 Fr [place] 20 Mhzusing Manual pullback. Imaging was successful. Indication: IVUS performed for pre intervention planning. Findings Pre-Intervention: scattered plaque, calcification and [id number] degrees calcification. Findings Post-Intervention: Stent not imaged [...] * POC, GLUCOSE (06/02/2024 11:31 PM EDT) [facility] Glucometer, POC 156 65 - 199 mg/dL 06/02/2024 11:31 PM EDT [facility] Comment:Supplemental ranges: <140 mg/dL before meals <180 mg/dL all other times of the day. Blood CAPILLARY BLOOD / Unknown 06/02/2024 11:31 PM EDT 06/02/2024 11:31 PM EDT Nuha Rojo MD POINT OF CARE TEST ORDERABLES [facility] [address] [place] [address] documented in this encounter Visit Diagnoses Not [...] 2100, Last dose on Fri06/23/24 at 0900, Working Second Hand recommended duration is 3 days., Routine Given [...] 8:02 PM EST 2 tablets sodium chloride ([place]) 0.65 % nasal spray 1 spray 1 [...] Lane, JAMIE)1802 (Given - Provider: Mary Lou Lane RN) [...] 2100, Last dose on Fri06/23/24 at 0900, Working Second Hand recommended duration is 3 days., Routine 2043 [...] 08 (Given - Provider: Michelle Orozco RN) 08 (Given - Provider: Shazia [...] during assessment) 0531 (Given - Provider: Christina yMers RN)1251 (Given - Provider: Michelle Orozco RN)2230 [...] oral route first line., Routine sodium chloride ([place]) 0.65 % nasal spray 1 spray 1 [...] 6 hours upon arrival to Unit. Give CO if unable to take PO, Routine Group [...] Routine documented in this encounter Care Teams Manager Lab Relationship Specialty Start Date End Date Mauro Berumen MD [address] [place] [address] PCP - General Family Medicine 06/02/24 documented as of this encounter
--- OUTSIDE RECORDS SUMMARY | 2024-08-09 11:00 | XMS_ITS | Clinical Summary ---
Author Organization [facility] Address [address] [place] [address] Care Team Providers Care Chargemaster Analyst Name Role Phone Jesu Guerra [facility] Primary Care Provider [phone] Social History Tobacco Use Types Packs/Day Years [...] 2032 Insurance [employer]ICARE Care Teams Chargemaster Analyst Relationship Specialty Start Date End Date Jesu Guerra, [place] [address] [place] [address] PCP - General Family Medicine - Primary Care 10/03/23
== END 2024-09-03 23:59 | disposition home or self-care (01) ==
LOC: CR 10:49
PROVIDERS: PCP Family Medicine; Visit Provider Internal Medicine Cardiovascular Disease
DX: I21.3 ST elevation (STEMI) myocardial infarction of unspecified site (principal); Z51.89 Encounter for other specified aftercare
CPT/HCPCS: S9472

== ENCOUNTER 2024-08-13 11:02 | Inpatient (IN) | payer MEDICARE, SELFPAY ==
[2024-08-13] VITALS (61 sets, daily range): BP systolic 95–147; BP diastolic 57–78; PULSE 76–82; RESP 8–23; TEMP 36–37; O2SAT 95–99
--- NOTE | 2024-08-13 11:00 | RT.EKG_ITS ---
APPROVED REPORT Exam: Resting ECG Reason for Exam: hypotension Patient Location: E HR:80 bpm ECG Measurements Heart Rate 80 AXIS SC 166 P 78 QRSd 97 QRS 81 QT 380 T 255 QTc 438 Conclusion Atrial-ventricular dual-paced rhythm
[2024-08-13 12:10] LABS: Abs Immature Grans 0.04 10^3/uL (0.0-0.06); Absolute Basophil Count 0.09 10^3/uL (0.0-0.2); Absolute Eosinophil Count 0.23 10^3/uL (0.0-0.7); Absolute Lymphocyte Count 1.78 10^3/uL (1.2-3.4); Absolute Monocyte Count 0.75 10^3/uL (0.1-0.8); Absolute Neutrophil Count 6.36 10^3/uL (1.2-6.7); Eosinophils % 2.5 %; HCT 43.1 % (40.0-50.0); HGB 13.4 g/dL (13.5-17.5); Immature Grans % 0.4 %; Lymphocytes % 19.2 %; MCH 28.8 pg (27.0-33.0); MCHC 31.1 % (32.0-36.0); MCV 93 fL (80-95); MPV 9.4 fL (8.0-11.0); Monocytes % 8.1 %; Neutrophils % 68.8 %; Platelet Count 233 10^3/uL (130-400); RBC 4.65 10^6/uL (4.36-5.78); RDW 13.6 % (11.8-14.1); WBC 9.25 10^3/uL (4.4-10.8)
[2024-08-13 12:28] LABS: ALT 10 U/L (16-63); AST 14 U/L (15-37); Albumin 3.7 g/dL (3.4-5.0); Alkaline Phosphatase 89 U/L (46-116); Anion Gap 7.5 mmol/L (3-11); BUN 29 mg/dL (7-18); Bilirubin, Total 0.65 mg/dL (0.2-1.0); CO2 29.5 mmol/L (21.0-32.0); CREATININE 1.5 mg/dL (0.70-1.30); Calcium 9.7 mg/dL (8.5-10.1); Chloride 101 mmol/L (98-107); Estimated GFR 50.71 (mL/min/1.73m2); Glucose 186 mg/dL (74-106); Magnesium 1.9 mg/dL (1.8-2.4); Potassium 4.5 mmol/L (3.5-5.1); Sodium 138 mmol/L (136-145); Total Protein 7.6 g/dL (6.4-8.2)
[2024-08-13 12:30] LABS: Troponin I 309 ng/L (<or=76)
--- NOTE | 2024-08-13 13:18 | W.ED.GENAD ---
Discharge Plan Disposition Patient Disposition: Admit to [facility] Condition: Serious Discharge Details Chief Complaint: Dizzy/Sync Clinical Impression: Acute non-ST elevation myocardial infarction (NSTEMI) Primary Care Provider: Mauro Berumen ED Provider: Marcelo Manning Home Meds and New Rx's Prescriptions: No Action furosemide [Lasix] 20 mg tablet 20 mg PO DAILY insulin degludec [Tresiba FlexTouch U-100] 100 unit/mL (3 mL) insulin pen 50 unit subcut DAILY ketoconazole 2 % cream 1 applic topical DAILY Qty: 120 6RF Rx Instructions: Apply to toenails once daily aspirin 81 mg tablet 81 mg PO DAILY atorvastatin 80 mg tablet 80 mg PO DAILY carvedilol 12.5 mg tablet 12.5 mg PO BID Rx Instructions: must administer with a meal/food cholecalciferol (vitamin D3) 50 mcg (2,000 unit) capsule 50 mcg PO DAILY clopidogrel 75 mg tablet 75 mg PO DAILY Entresto 49-51 mg tablet 1 tab PO BID escitalopram oxalate 20 mg tablet 20 mg PO DAILY Jardiance 25 mg tablet 25 mg PO DAILY metformin 1,000 mg tablet 1,000 mg PO BID insulin aspart U-100 [Novolog FlexPen U-100 Insulin] 100 unit/mL (3 mL) insulin pen 20 unit subcut TID diphenhydramine HCl 25 mg capsule 25 mg PO QHS PRN HPI General Date/Time Provider Initiated Documentation: 08/13/24 11:30. Limitations to Documentation: no limitations. Information obtained by: patient. HPI Narrative: 69-year-old male with multiple medical problems including coronary artery disease status post recent CABG, ICD placement, diabetes, sent from cardiac rehab where he experienced episode of feeling generally foggy with associated blurred vision after exercising. Blood pressure was noted to be low at 82/58 at that time. Patient notes after period of rest symptoms resolved as did his blood pressure. He is asymptomatic at this time. Patient denies chest pain or shortness of breath. No leg swelling. He does note recently his blood sugars have been intermittently low and he has been monitoring closely and adjusting his short acting insulin accordingly. He states he has been urinating frequently and attributes this to the Lasix which was started post CABG. Related Data Home Medications ?Medication ?Instructions ?Recorded ?Confirmed aspirin 81 mg tablet 81 mg PO DAILY 09/05/23 08/13/24 atorvastatin 80 mg tablet 80 mg PO DAILY 09/05/23 08/13/24 carvedilol 12.5 mg tablet 12.5 mg PO BID 09/05/23 08/13/24 cholecalciferol (vitamin D3) 50 50 mcg PO DAILY 09/05/23 08/13/24 mcg (2,000 unit) capsule clopidogrel 75 mg tablet 75 mg PO DAILY 09/05/23 08/13/24 empagliflozin 25 mg tablet 25 mg PO DAILY 09/05/23 08/13/24 (Jardiance) escitalopram oxalate 20 mg tablet 20 mg PO DAILY 09/05/23 08/13/24 insulin aspart U-100 100 unit/mL 20 unit subcut TID 09/05/23 08/13/24 (3 mL) subcutaneous pen (Novolog FlexPen U-100 Insulin aspart) metformin 1,000 mg tablet 1,000 mg PO BID 09/05/23 08/13/24 sacubitril 49 mg-valsartan 51 mg 1 tab PO BID 09/05/23 08/13/24 tablet (Entresto) diphenhydramine HCl 25 mg capsule 25 mg PO QHS PRN 09/09/23 08/13/24 ketoconazole 2 % topical cream 1 applic topical DAILY #120 grams 05/20/24 08/13/24 furosemide 20 mg tablet (Lasix) 20 mg PO DAILY 07/26/24 08/13/24 insulin degludec 100 unit/mL (3 50 unit subcut DAILY 07/27/24 08/13/24 mL) subcutaneous pen (Tresiba FlexTouch U-100 insulin) Previous Rx's ?Medication ?Instructions ?Recorded ketoconazole 2 % topical cream 1 applic topical DAILY #120 grams 05/20/24 Allergies Allergy/AdvReac Type Severity Reaction Status Date / Time No Known Allergies Allergy Verified 08/13/24 11:17 General Stated Complaint: Dizzy/Sync HECTOR: 3 Review of Systems All systems reviewed & are unremarkable except as noted in HPI and below Constitutional Constitutional: Denies fever(s) Cardiovascular Cardiovascular: Reports as per HPI and Denies chest pain Exam Const General: cooperative and no acute distress HENMT Mouth: moist mucous membranes Eyes Conjunctivae: normal conjunctivae Sclera: normal sclerae Neck Neck: trachea midline and supple Resp Auscultation: clear to auscultation bilaterally, no rales, no rhonchi and no wheezes Cardio Rate: regular rate and not tachycardic Rhythm: regular rhythm GI Palpation: soft, not firm, no guarding, no masses, not rigid and nontender Skin General skin exam: no rashes or lesions noted Neuro General: patient alert, patient awake, patient oriented x3 and tone normal Extrem General: no calf tenderness and no edema Psych Appearance: grossly normal Mental Status: mental status grossly normal Speech and Movement: speech and movement normal Course Vital Signs Vital signs: Vital Signs Temperature 37.0 C 08/13/24 11:13 Pulse 80 08/13/24 11:13 Respiratory Rate 20 08/13/24 11:13 Blood Pressure 117/61 08/13/24 11:13 Pulse Oximetry 97 08/13/24 11:13 Temperature 37.0 C 08/13/24 11:13 Pulse 80 08/13/24 13:10 Pulse 80 08/13/24 13:11 Respiratory Rate 14 08/13/24 13:11 Respiratory Effort Normal, Non-Labored 08/13/24 11:30 Respiratory Depth Normal 08/13/24 11:30 Respiratory Pattern Normal 08/13/24 11:30 Blood Pressure 132/65 08/13/24 13:10 Blood Pressure Mean 80 08/13/24 13:10 Pulse Oximetry 97 08/13/24 13:11 Oxygen Delivery Method Room Air 08/13/24 11:13 Oxygen Flow Rate 0 08/13/24 11:13 Pain Level 0 08/13/24 11:13 Lab/Test Results Lab/Test Results: Laboratory Tests Range/Units 08/13/24 11:27 WBC (4.4-10.8) 10^3/uL 9.25 RBC (4.36-5.78) 10^6/uL 4.65 Hgb (13.5-17.5) g/dL 13.4 L Hct (40.0-50.0) % 43.1 MCV (80-95) fL 93 MCH (27.0-33.0) pg 28.8 MCHC (32.0-36.0) % 31.1 L RDW (11.8-14.1) % 13.6 Plt Count (130-400) 10^3/uL 233 MPV (8.0-11.0) fL 9.4 Immature Gran % % 0.4 Neutrophils % % 68.8 Lymphocytes % % 19.2 Monocytes % % 8.1 Eosinophils % % 2.5 Basophils % % 1.0 Nucleated RBC % (0.0-0.3) % 0.0 Absolute Neutrophils (1.2-6.7) 10^3/uL 6.36 Absolute Lymphocytes (1.2-3.4) 10^3/uL 1.78 Absolute Monocytes (0.1-0.8) 10^3/uL 0.75 Absolute Eosinophils (0.0-0.7) 10^3/uL 0.23 Absolute Basophils (0.0-0.2) 10^3/uL 0.09 Sodium (136-145) mmol/L 138 Potassium (3.5-5.1) mmol/L 4.5 Chloride (98-107) mmol/L 101 Carbon Dioxide (21.0-32.0) mmol/L 29.5 Anion Gap (3-11) mmol/L 7.5 BUN (7-18) mg/dL 29 H Creatinine (0.70-1.30) mg/dL 1.5 H Est GFR (CKD-EPI 2020) (mL/min/1.73m2) 50.71 Glucose (74-106) mg/dL 186 H Calcium (8.5-10.1) mg/dL 9.7 Magnesium (1.8-2.4) mg/dL 1.9 Total Bilirubin (0.2-1.0) mg/dL 0.65 AST (15-37) U/L 14 L ALT (16-63) U/L 10 L Alkaline Phosphatase (46-116) U/L 89 Troponin I (<or=76) ng/L 309 H* Total Protein (6.4-8.2) g/dL 7.6 Albumin (3.4-5.0) g/dL 3.7 Medical Decision Making 1320 --69-year-old male with multiple medical problems including history of coronary artery disease status post CABG last month, currently participating in cardiac rehab, sent from cardiac rehab after symptomatic hypotensive episode that occurred during exercise. Now resolved with rest. Patient is hemodynamically stable. He saturating well in no respiratory distress. He has no symptoms at this time. EKG was reviewed and interpreted by me on initial arrival: AV dual paced rhythm at 80 bpm, T wave inversions noted inferior lateral. No significant changes from prior. Initial labs reviewed and high-sensitivity troponin is elevated at 309. Plan to discuss with cardiology. 1445 -- Spoke with [place] [facility] recommmend transfer for rule/out ACS. Not able to accept until tomorrow. Recommend 250mL bolus and start heparin with bolus. Will hospitalize here until able to transfer. --I spoke with the patient, he is frustrated with his current condition. Patient needed some time to think about recommended treatment plan. On reassessment he is agreeable to treatment as recommended. 1545 --I spoke with Dr. Peralta, discussed ED presentation course, he will admit the patient for pending transfer. Lab Data Lab results reviewed: Yes I reviewed the patient's lab results. Labs: Laboratory Tests Range/Units 08/13/24 08/13/24 11:27 13:05 WBC (4.4-10.8) 10^3/uL 9.25 RBC (4.36-5.78) 10^6/uL 4.65 Hgb (13.5-17.5) g/dL 13.4 L Hct (40.0-50.0) % 43.1 MCV (80-95) fL 93 MCH (27.0-33.0) pg 28.8 MCHC (32.0-36.0) % 31.1 L RDW (11.8-14.1) % 13.6 Plt Count (130-400) 10^3/uL 233 MPV (8.0-11.0) fL 9.4 Immature Gran % % 0.4 Neutrophils % % 68.8 Lymphocytes % % 19.2 Monocytes % % 8.1 Eosinophils % % 2.5 Basophils % % 1.0 Nucleated RBC % (0.0-0.3) % 0.0 Absolute Neutrophils (1.2-6.7) 10^3/uL 6.36 Absolute Lymphocytes (1.2-3.4) 10^3/uL 1.78 Absolute Monocytes (0.1-0.8) 10^3/uL 0.75 Absolute Eosinophils (0.0-0.7) 10^3/uL 0.23 Absolute Basophils (0.0-0.2) 10^3/uL 0.09 Sodium (136-145) mmol/L 138 Potassium (3.5-5.1) mmol/L 4.5 Chloride (98-107) mmol/L 101 Carbon Dioxide (21.0-32.0) mmol/L 29.5 Anion Gap (3-11) mmol/L 7.5 BUN (7-18) mg/dL 29 H Creatinine (0.70-1.30) mg/dL 1.5 H Est GFR (CKD-EPI 2020) (mL/min/1.73m2) 50.71 Glucose (74-106) mg/dL 186 H Calcium (8.5-10.1) mg/dL 9.7 Magnesium (1.8-2.4) mg/dL 1.9 Total Bilirubin (0.2-1.0) mg/dL 0.65 AST (15-37) U/L 14 L ALT (16-63) U/L 10 L Alkaline Phosphatase (46-116) U/L 89 Troponin I (<or=76) ng/L 309 H* 305 H* Total Protein (6.4-8.2) g/dL 7.6 Albumin (3.4-5.0) g/dL 3.7 Quality:[facility] Health Related Social Needs: No Data to Display PFSH All Active Problems (Updated 08/13/24 @ 15:49 by Marcelo Manning MD) Acute non-ST elevation myocardial infarction (NSTEMI) (Acute) Hypoglycemia (Acute) Diabetes mellitus with peripheral angiopathy without gangrene (Acute) Diabetes mellitus with autonomic neuropathy (Acute) PAD (peripheral artery disease) (Acute) Onychomycosis (Acute) Skin-picking disorder (Acute) Atypical nevus (Acute) History of melanoma (Acute) ICD (implantable cardioverter-defibrillator), biventricular, in situ (Acute) medtronic ICD for [employer]. 06/16/2019 in [place]. 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 (Acute) Medical History ST elevation myocardial infarction (STEMI) 06/02/24[place] [facility] [place] [facility] Hx of cardiac pacemaker Chronic left-sided heart failure Diabetic neuropathy Type 2 diabetes mellitus Surgical History Hx of CABG 07/26/24 CABG x3 06/14/24 [place] [facility] [place] [facility] exploration/clipping and removal of mediastinal mass, [facility] Family History Mother Diabetes Cancer Father Heart disease Hypertension Social History Smoking/Tobacco Use Status: Former Tobacco Use Quit Date: 04/04/24 Smoking risk assessment performed?: Yes Alcohol Intake: never Drug use: Occasionally Substance use type: marijuana Housing: house Do you feel safe at home: Yes Do you feel safe in your relationship?: Yes
[2024-08-13 13:41] LABS: Troponin I 305 ng/L (<or=76)
[2024-08-13] MEDS: Lactated Ringers 250 ML IV (15:33)
[2024-08-13 15:34] LABS: Troponin I 308 ng/L (<or=76)
[2024-08-13 15:41] LABS: PTT Activated 27.6 sec (20.6-30.2)
--- NOTE | 2024-08-13 15:49 | HPE_ITS ---
Date of service: 08/13/24 Time of Service: 15:49 Assessment and Plan Assessment and plan (1) ACS (acute coronary syndrome): Status: Acute Assessment and plan: The patient had an STEMI on 06/02/2024 and was transferred to [facility] where he got a CABG in 06/2024.He also had a biventricular in situ ICD from 2019, last LVEF available in the system was 50% and the patient has no recollection of other echo done, but has ongoing left-sided heart failures w/o symptoms or decompensation as of 07/27/2024.Te patient has been started on lasix sin the CABG and dehydration is to be considered based on BUN and creatinine values -Today, in the setting of hypotension, lightheadedness blurred vision during cardiac rehabilitation we will need to consider ACS rule-out non-STEMI as troponins were slightly elevated despite remaining flat. -EKG did not show signs of occlusive coronary arteries. Now on heparin drip ACS protocol Continue ASA Plavix and statin Repeat as troponin scheduled and in the morning Telemetry monitoring Continue Coreg and Entresto with parameters Patient to be transferred to [facility]?n.p.o. after midnight (2) Elevated troponin I measurement: Status: Acute Assessment and plan: Troponin initially at 309, then 305 and 308 Telemetry monitoring Repeat troponin in a.m. (3) Type 2 diabetes mellitus: Assessment and plan: Holding long acting anti-hyperglycemic injection and TID 20 units of lispro Considered continuing metformin since it is most likely not to cause hypoglycemia but held s/p discussion w pharmacy regarding risk factors Blod sugars AC & HS with moderated SSI coverage N.p.o. after midnight as per point 1 Initiate D5 LR at 75 cc an hour when n.p.o. And as below (4) Hypoglycemia: Status: Acute Assessment and plan: Resolved in the ED with oral carb intake, consideration to be given to beta- blockers and effect on the autonomic nervous system. Patient will continue Coreg home dosing with parameters with blood sugar monitoring. (5) Hx of CABG: Assessment and plan: Completed on 06/14/2024 w MARIALUISA exploration/ clipping of a mediastinal tumor, but patient is not aware of the tumor removal (6) Essential hypertension: Status: Acute Assessment and plan: On home medicines with parameters (7) Dehydration: Status: Acute Assessment and plan: Creat 1.4 BUN 29 On home dose lasix with parameters (8) Contraindication to deep vein thrombosis (DVT) prophylaxis: Status: Acute Assessment and plan: Due to intervention in ACS pharmacological DVT prophylaxis is not indicated. Discussed with Dr. Peralta History of Present Illness History of Present Illness Chief Complaint: Lightheadedness, blurred vision N arrative: This 69-year-old male patient with past medical history of pacemaker insertion in 2018 for restrictive cardiomyopathy, CABG normal [facility] with mediastinal tumor resection in May 2024 status post ME, presented to the ED at [facility] status post feeling lightheaded with blurred vision during cardiac rehabilitation session in the facility. ED provider reported systolic blood pressure in the 80's in cardiac rehabilitationwith resloution inthe ED w/o interventions. The patient denied chest pain and had no requirement for oxygen supplementation. Workup in the ED showed an EKG with pacing without T wave or ST segment changes pointing to occlusive cardiac disease; noticeable T wave inversion in multiple leads infero-lateral leads as seen prior. Troponin was in the 300s and remained flat x 3. BUN/creatinine was 29 and 1.5, glucose 186; CBC was unremarkable. In the ED the patient had which responded to oral carbohydrate intake. The ED provider contacted [facility] cardiology services with recommendations a bolus of crystalloid of 250 cc, heparin drip ACS protocol and continuation of home medicines; Dr. Ferguson accepted the patient but no bed was available at this time. Bed is to be expected in the afternoon around 13:00-14:00. When met, the patient reported resolution of lightheadedness,blurred vision and fogginess. The patient denied fever, chills, chest pain or chest heaviness, shortness of breath, nausea or vomiting, or genitourinary symptoms. The patient confirmed code status as full. Review of Systems All systems reviewed & are unremarkable except as noted in HPI and below PFSH All Active Problems (Updated 08/13/24 @ 17:47 by Adele Temple APRN) Dehydration (Acute) Contraindication to deep vein thrombosis (DVT) prophylaxis (Acute) Elevated troponin I measurement (Acute) ACS (acute coronary syndrome) (Acute) Acute non-ST elevation myocardial infarction (NSTEMI) (Acute) Hypoglycemia (Acute) Diabetes mellitus with peripheral angiopathy without gangrene (Acute) Diabetes mellitus with autonomic neuropathy (Acute) PAD (peripheral artery disease) (Acute) Onychomycosis (Acute) Skin-picking disorder (Acute) Atypical nevus (Acute) History of melanoma (Acute) ICD (implantable cardioverter-defibrillator), biventricular, in situ (Acute) 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 06/16/2019 in [place]. 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 (Acute) Medical History ST elevation myocardial infarction (STEMI) 06/02/24MI xfered to [facility] from [facility], [facility] Hx of cardiac pacemaker Chronic left-sided heart failure Diabetic neuropathy Type 2 diabetes mellitus Surgical History Hx of CABG 07/26/24 CABG x3 06/14/24 at [facility] with MARIALUISA exploration/clipping and removal of mediastinal mass, [facility] Family History Mother Diabetes Cancer Father Heart disease Hypertension Social History Smoking/Tobacco Use Status: Former Tobacco Use Quit Date: 04/04/24 Smoking risk assessment performed?: Yes Alcohol Intake: never Drug use: Occasionally Substance use type: marijuana Housing: apartment Do you feel safe at home: Yes Do you feel safe in your relationship?: Yes Meds Allergies and Home Medications Allergies Allergy/AdvReac Type Severity Reaction Status Date / Time No Known Allergies Allergy Verified 08/13/24 11:17 Home Medications ?Medication ?Instructions ?Recorded ?Confirmed ?Type aspirin 81 mg tablet 81 mg PO DAILY 09/05/23 08/13/24 History atorvastatin 80 mg tablet 80 mg PO DAILY 09/05/23 08/13/24 History carvedilol 12.5 mg tablet 12.5 mg PO BID 09/05/23 08/13/24 History cholecalciferol (vitamin D3) 50 50 mcg PO DAILY 09/05/23 08/13/24 History mcg (2,000 unit) capsule clopidogrel 75 mg tablet 75 mg PO DAILY 09/05/23 08/13/24 History empagliflozin 25 mg tablet 25 mg PO DAILY 09/05/23 08/13/24 History (Jardiance) escitalopram oxalate 20 mg tablet 20 mg PO DAILY 09/05/23 08/13/24 History insulin aspart U-100 100 unit/mL 20 unit subcut TID 09/05/23 08/13/24 History (3 mL) subcutaneous pen (Novolog FlexPen U-100 Insulin aspart) metformin 1,000 mg tablet 1,000 mg PO BID 09/05/23 08/13/24 History sacubitril 49 mg-valsartan 51 mg 1 tab PO BID 09/05/23 08/13/24 History tablet (Entresto) diphenhydramine HCl 25 mg capsule 25 mg PO QHS PRN 09/09/23 08/13/24 History ketoconazole 2 % topical cream 1 applic topical DAILY #120 grams 05/20/24 08/13/24 Rx furosemide 20 mg tablet (Lasix) 20 mg PO DAILY 07/26/24 08/13/24 History insulin degludec 100 unit/mL (3 50 unit subcut DAILY 07/27/24 08/13/24 History mL) subcutaneous pen (Tresiba FlexTouch U-100 insulin) Exam Narrative Exam Narrative: Constitutional The patient is in bed comfortable and cooperative during the interview. The patient is well groomed without acute distress HENMT: No lymphadenopathy. Facial structures with normal appearance Eyes: Well aligned, intact ROM Neck: Normal ROM, no meningeal signs Neuro:alert and oriented X4 . No neurological focal deficit Resp: Normal respiratory pattern, speaks in full sentences, unlabored breathing, clear lung bilaterally Cardio: regular rhythm, S1, S2, no murmur, capillary refill<3 sec., bilateral radial and dorsalis pedis pulses are positive, no edema GI: Abdomen is not distended, soft and non tender, bowel sounds are present : Negative Costovertebral angle tenderness Back/spine/Pelvis: No back tenderness, normal alignment Integumentary: No skin lesions or rashto exposed skin Extremities: strength 5/5 to bilateral lower and upper extremities Psych: RASS 0, congruent mood and normal affect. Results Labs 08/13/24 11:27 08/13/24 11:27 Labs: Laboratory Results - last 24 hr 08/13/24 08/13/24 08/13/24 11:27 13:05 15:03 WBC 9.25 RBC 4.65 Hgb 13.4 L Hct 43.1 MCV 93 MCH 28.8 MCHC 31.1 L RDW 13.6 Plt Count 233 MPV 9.4 Immature Gran % 0.4 Neutrophils % 68.8 Lymphocytes % 19.2 Monocytes % 8.1 Eosinophils % 2.5 Basophils % 1.0 Nucleated RBC % 0.0 Absolute Neutrophils 6.36 Absolute Lymphocytes 1.78 Absolute Monocytes 0.75 Absolute Eosinophils 0.23 Absolute Basophils 0.09 APTT 27.6 Sodium 138 Potassium 4.5 Chloride 101 Carbon Dioxide 29.5 Anion Gap 7.5 BUN 29 H Creatinine 1.5 H Est GFR (CKD-EPI 2020) 50.71 Glucose 186 H Calcium 9.7 Magnesium 1.9 Total Bilirubin 0.65 AST 14 L ALT 10 L Alkaline Phosphatase 89 Troponin I 309 H* 305 H* 308 H* Total Protein 7.6 Albumin 3.7 Last Vital Signs Temp 37.0 C 08/13/24 11:13 Pulse 80 08/13/24 14:21 Resp 11 L 08/13/24 14:10 BP 134/70 08/13/24 14:21 Pulse Ox 97 08/13/24 14:30 Time Spent Time spent with Patient: >75 minutes Time was spent: preparing to see the patient(eg.review tests), obtaining and/or reviewing separately otained hiistory, ordering medications,tests, procedures, referring, communicating with other health career development director, indepentently interpreting results, counseling the patient and care coordination
[2024-08-13] MEDS: Heparin in 0.45% NaCl 25,000 UNIT/250 ML BAG 10 UNIT IVINF (15:59)
--- OUTSIDE RECORDS SUMMARY | 2024-08-13 17:10 | XMS_ITS | Encounter Summary ---
Author Organization [facility] Address [facility] [place] [address] Care Team Providers Care Auto Technician Name Role Phone Mauro Berumen MD Primary Care Provider [phone] Encounter Details Date Type Department Care Team (Late st Contact Info) Description 08/13/2024 Telephone Cardiology at [address] [place] [phone] Katy Maurer APRN [facility] [place] [address] Social History Tobacco Use Types Packs/Day Years Used Date Smoking Tobacco: Every Day Cigarettes Smokeless Tobacco: Never [facility] Utilities Answer Date Recorded In [...] in a jail (including now)? No 06/03/2024 DH IPV Inpatient [...] on file documented as of this encounter Miscellaneous Notes * Telephone Encounter - Katy Maurer, RN CASE MANAGER HOSPICE - 08/13/2024 2:52 PM EST Images from the original note were not included. 08/13/2024 Arturo Mehta Initial Contact Date: 08/13/2024 Initial contact time: 2:52 PM Referring Provider: Dr. Marcelo Manning Patient Location: [facility] ED Past Medical History: CAD (s/p PCI x 3 ; vCABG 06/2024 in setting of STEMI) ICM/HFrEF (LVEF 30% ; s/p SENIOR CLINICIAN/ICD) T2DM HTN HLD Presenting Symptoms per OSH: Patient presented to [facility] ED from cardiac rehabilitation as a participant s/p 3vCABG 06/2024. Patient was exercising when he suddenly felt dizziness, lightheadedness, and blurred vision. He sat down and cardiac rehabilitation RN took his blood pressure. He was found to be hypotensive ; SBP 80s. After sitting for several minutes his symptoms improved and he was transported to the ED. He has been asymptomatic and hemodynamically stable during ED evaluation. He is without hypoxia and euvolemic on examination. His EKG shows AV paced rhythm with 1mm ST elevation anteriorly with ST depression inferiorly. This is unchanged, if not somewhat improved, from previous EKG. His troponin trend is 309 then 305 (ULN 76). His renal function, magnesium, sodium and potassium are WNL. He has no elevated WBC.Of note, he has had intermittent episodes of hypoglycemia at home and his repeat BGL in the ED was in the 60s. He has also been taking Lasix 20 mg daily since discharge. His creatinine is 1.5. Vital signs: 132/65, 80 HR, 14 RR, 97% RA, 98.6F Pertinent Diagnostic Findings: Troponin 309 then 309 (ULN 76) Creat 1.5 K 4.5 Na 138 Magnesium 1.9 WBC WNL Hemoglobin 13.4 EKG 08/13/24 AV paced, 1mm ST elevation anterior leads, ST depression inferior leads, unchanged from previous Past cardiac studies: EKG 06/14/24 Echo 06/02/24 Interpretation Summary -Left ventricular systolic function is [...] a fellow performed study of today's date). Cath 06/13/24 Hemodynamics: Left Heart Pressures Resting: Syst Diast EDP a v m Ao 138 66 115 Indication for Selected Procedures: An intraaortic balloon pump was inserted for Prophylaxis, pre-heart surgery. Vascular Access: Vascular Access Angiogram: A selective angiogram at the right femoral artery revealed mild diffuse disease. Vascular Ultrasound: Ultrasound of the right femoral artery was used to guide access and showed vessel patent with mild disease. Needle entry was observed. Vascular Access Management: The right femoral artery access was secured in place for monitoring, staged procedure or therapy. Conclusions: * Successful placement of 8F IABP through the RFA. Cath 06/02/24 Hemodynamics: Left Heart Pressures Resting: Syst Diast EDP a v m Ao 94 58 45 LV 103 40 Coronary Angiography: Dominance: Left Left Main There was a 40% stenosis of the distal segment of the left main artery. Left Anterior Descending There was a 70% calcified diffuse stenosis of the proximal segment of the left anterior descending artery (LAD). The mid segment of the LAD had a calcified diffuse 70% stenosis. Left Circumflex There was a 60% stenosis of the proximal segment of the left circumflex artery (LCX). The mid segment of the LCX had a calcified diffuse 80% stenosis. There was a single discrete total occlusion of the ostial segment of the first obtuse marginal branch (OM1) of the LCX. Right Coronary Artery There was mild diffuse (<=25% stenosis) disease of the entire vessel segment of the right coronary artery (RCA). Intravascular Imaging/Physiology: Intravascular Ultrasound was performed in the distal LM using a 6 Fr EBU 3.5 guiding catheter and a 3.5 Fr [facility] [place] 20 Mhz using Manual pullback. Imaging was successful. Image quality was fair. Indication: IVUS performed for left main disease. IVUS performed prior to any vessel manipulation. Findings Pre-Intervention: scattered plaque, diffuse plaque, calcification, with 360 degrees calcification and with nodules. Findings Post-Intervention: Stent not imaged post insertion. Conclusions: diagnostic IVUS. Intravascular Ultrasound was performed in the proximal LCX using a 6 Fr EBU 3.5 guiding catheter and a 3.5 Fr [place] [facility] [place] 20 Mhz using Manual pullback. Imaging was successful. Indication: IVUS performed for pre intervention planning. Findings Pre-Intervention: scattered plaque, calcification and with 360 degrees calcification. Findings Post-Intervention: Stent not imaged post insertion. Conclusions: diagnostic IVUS. Vascular Access: Vascular Access Management: Mechanical Compression of the right radial artery access site was performed. Conclusions: * Two vessel coronary artery disease (LAD and LCX) * Elevated left ventricular end diastolic pressure OSH Interventions: Gentle 250mL NSS bolus Heparin gtt Atorvastatin 80 mg Plavix Plan: Patient presented to [facility] ED from cardiac rehabilitation with pre-syncopal symptoms including dizziness, lightheadedness, and blurred vision during exercise. He was hypotensive ; SBP 80s. This resolved after several minutes with rest. He is without CP or SOB. He was then taken to the ED for evaluation. He is hemodynamically stable and without hypoxia. He is euvolemic on examination. His EKG looksunchanged from previous. His troponin was found to be elevated at 309 then 305. His electrolytes, WBC, hemoglobin are WNL. His creatinine is 1.5. He has been taking Lasix 20 mg daily since time of discharge. He has been intermittently hypoglycemic at home and his BLG at bedside dropped to 60. He has known ICM with LVEF 30%. His troponinemia is likely demand in the setting of hypovolemia however given his recent CABG and known CAD new myocardial infarction or thrombosis cannot be excluded.Additionally, he has known SENIOR CLINICIAN/ICD. It is unclear if arrhythmia is culprit for pre-syncopal episode. [facility] will attempt to obtain TTE to evaluate EF and new WMAs if TTE available. I have advised for gentle IV NSS bolus with 250mL fluid in the setting of hypotension and creatinine 1.5 with pre-syncopal symptoms. I have encouraged to hold 20 mg daily Lasix as there is no evidence of fluid overload onexamination. Plan for transfer to [facility] cardiology med/surg level of care accepting for 08/14/24. Of note, at time of 3vCABG in 06/2024, his troponin trend ~200s. Recommend to initial heparin gtt as per ACS protocol and to administer home medications including Plavix, ASA and atorvastatin. Above recommendations were based on my discussion with Dr. Manning; I have not personally interviewed or examined this patient. Advised to call the transfer center back with any changes in the patient condition. Katy Maurer APRN Pager #: [phone] 08/13/2024 2:53 PM documented in this encounter Plan of Treatment Upcoming Encounters Date Type Department Care Team (Late st Contact Info) Description 08/14/2024 Hospital Encounter Heart and Vascular Unit Level 3 [place] [phone] Jim Benites MD [facility] [place] [address] documented as of this encounter Visit Diagnoses Not on filedocumented in this encounter Care Teams Auto Technician Relationship Specialty Start Date End Date Mauro Berumen MD [address] [place] [address] PCP - General Family Medicine 06/02/24 documented as of this encounter
--- OUTSIDE RECORDS SUMMARY | 2024-08-13 17:10 | XMS_ITS | Encounter Summary ---
Author Organization [facility] Address [facility] [place] [place] [address] Care Team Providers Care Graining Machine Operator Name Role Phone Mauro Berumen MD Primary Care Provider [phone] Encounter Details Date Type Department Care Team (Late st Contact Info) Description 07/20/2024 Notes Only Cardiology at [address] [place] [address] Esha Jones RN Social History Tobacco Use Types Packs/Day Years Used Date Smoking Tobacco: Every Day Cigarettes Smokeless Tobacco: Never [facility] Utilities Answer Date Recorded In the [...] any time in the past 12 m [facility], were you homeless or living in [...] BGL was measured to be 40. Nurse Circular Knife Machine Cutter Chelsi administered chewable glucose tablets while this [...] Vascular Unit Level 3 [place] [phone] Jim Benites MD [facility] [place] [address] documented as of this encounter Visit Diagnoses Not on filedocumented in this encounter Care Teams Graining Machine Operator Relationship Specialty Start Date End Date Mauro Berumen MD [address] [place] [address] PCP - General Family Medicine 06/02/24 documented as of this encounter
--- OUTSIDE RECORDS SUMMARY | 2024-08-13 17:10 | XMS_ITS | Encounter Summary ---
Author Organization [facility] Address [facility] [place] [address] Care Team Providers Care Project Structural Engineer Name Role Phone Mauro Berumen MD Primary Care Provider Encounter Details Date Type Department Care Team (Late st Contact Info) Description 07/20/2024 3:20 PM EST Office Visit Cardiac Surgery at [facility] [address] Bobby Loja MD [facility] [place] [address] Post-operative state Social History Tobacco Use Types Packs/Day Years Used Date Smoking Tobacco: Every Day Cigarettes Smokeless Tobacco: Never [facility] Utilities Answer Date Recorded In [...] any time in the past 12 m [facility], were you homeless or living [...] has not yet seen his PCP or humanities and languages professor since surgery. His appetite has been normal [...] a POC BG of 40; a wilfredo saunders was called but patient was feeling well after eating a snack. He was advised to follow up with his PCP for insulin optimization as stated below. ED return precautions were also provided. - No medication changes from cardiac surgery perspective - Follow up with Brick Chimney Builder (Kristen Cardenas) and PCP (Mauro Berumen) as [...] Vascular Unit Level 3 [place] [phone] Jim Benites MD [facility] [place] [address] documented as of this encounter Procedures Procedure Name Priority Date/Time Associated Diagnosis Comments POC, GLUCOSE Routine 07/20/2024 4:31 PM EST documented in this encounter Results * POC, GLUCOSE (07/20/2024 4:31 PM EST) Glucometer, POC 125 65 - 199 mg/dL 07/20/2024 4:31 PM EST [facility] Comment:Supplemental ranges: <140 mg/dL before meals <180 mg/dL all other times of the day. Blood CAPILLARY BLOOD / Unknown 07/20/2024 4:31 PM EST 07/20/2024 4:31 PM EST Bobby Loja MD POINT OF CARE TEST O RDERABLES Performing Organization Address City/State/[facility] Co de Phone Number [facility] [place] [address] documented in this encounter Visit Diagnoses Diagnosis Post-operative state Other postprocedural status documented in this encounter Care Teams Project Structural Engineer Relationship Specialty Start Date End Date Mauro Berumen MD [address] [place] [id number] PCP - General Family Medicine 06/02/24 documented as of this encounter
--- OUTSIDE RECORDS SUMMARY | 2024-08-13 17:10 | XMS_ITS | Encounter Summary ---
Author Organization [facility] Address [facility] [place] [address] Care Team Providers Care Keg Washer Name Role Phone Mauro Berumen MD Primary Care Provider [phone] Encounter Details Date Type Department Care Team (Latest Contact Info) Description 07/20/2024 Travel Social History Tobacco Use Types Packs/Day Years Used Date Smoking Tobacco: Every Day Cigarettes Smokeless Tobacco: Never [facility] Utilities Answer Date Recorded In the [...] any time in the past 12 m [facility], were you homeless or living in a assisted (including now)? No 06/03/2024 IPV Inpatient Questions [...] as of this encounter Plan of Treatment Upcoming Encounters Date Type Department Care Team (Late st Contact Info) Description 08/14/2024 Hospital Encounter Heart and Vascular Unit Level 3 [place] [address] Jim Benites MD [facility] [place] [address] documented as of this encounter Visit Diagnoses Not on filedocumented in this encounter Care Teams Keg Washer Relationship Specialty Start Date End Date Mauro Berumen MD [address] [place] [id number] PCP - General Family Medicine 06/02/24 documented as of this encounter
--- OUTSIDE RECORDS SUMMARY | 2024-08-13 17:10 | XMS_ITS | Encounter Summary ---
Author Organization [facility] Address [facility] [place] [address] Care Team Providers Care Residential Aide Name Role Phone Mauro Berumen MD Primary Care Provider [phone] Encounter Details Date Type Department Care Team (Late st Contact Info) Description 08/13/2024 External Results Transfer Center [facility] [place] [phone] Social History Tobacco Use Types Packs/Day Years Used Date Smoking Tobacco: Every Day Cigarettes Smokeless Tobacco: Never [facility] Utilities Answer Date Recorded In the past 12 months has th e electric, gas, oil, or water [employer] threatened to shut off services in your [...] in the past 12 m [facility], were you homeless or living in a [...] Vascular Unit Level 3 [place] [phone] Jim Benites MD [facility] [place] [address] documented as of this encounter Procedures Procedure Name Priority Date/Time Associated Diagnosis Comments MISC EXTERNAL CARDIOLOGY RESULT Routine 08/13/2024 1:38 PM EST documented in this encounter Results * External Cardiology Result (08/13/2024 1:38 PM EST) Anatomical Region Laterality Modality Other Historical Provider EXTERNAL CARDIOLO GY RESULT documented in this encounter Visit Diagnoses Not on filedocumented in this encounter Care Teams Residential Aide Relationship Specialty Start Date End Date Mauro Berumen MD [address] [place] [address] PCP - General Family Medicine 06/02/24 documented as of this encounter
--- OUTSIDE RECORDS SUMMARY | 2024-08-13 17:10 | XMS_ITS | Clinical Summary ---
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, <= 40%) 06/05/2024 Coronary artery disease invo lving stebbins coronary artery of stebbins heart without angina pectoris 06/05/2024 Type 2 diabetes mellitus 06/05/2024 STEMI (ST elevation myocardial infarction) 06/02 Encounters Date Type Department Care Team Description 08/13/2024 Telephone Cardiology at [address] [address] Katy Maurer APRN 08/13/2024 [place] [address] 07/20/2024 3:20 PM EST Office [place] [address] Wendi Loja MD Post-operative state 07/20/2024 Notes Only Cardiology at [address] [address] Esha Jones RN 07/20/2024 Travel 06/15/2024 Unscheduled Encounter Cardiology at [address] [address] Ross Corbin PA Cardiac resynchronization therapy defibrillator (LABOR DELIVERY SPECIALIST-D) in place [Z95.810] 06/14/2024 7:30 AM EST - 06/14/2024 2:08 PM EST Surgery [place] [address] Wendi Loja MD @CABG, USING ARTERIAL GRAFT;SINGLE ARTERIAL GRAFT (WRVU 33.75) 06/14/2024 7:30 AM EST Anesthesia [place] [address] Hosea Ardon MD Budney, Colleen E, PUBLIC HEALTH DIETITIAN 06/14/2024 Unscheduled Encounter Cardiology at [address] [address] Ross Corbin PA Cardiac resynchronization therapy defibrillator (LABOR DELIVERY SPECIALIST-D) in place [Z95.810] 06/13/2024 9:00 AM EST - 06/13/2024 10:00 AM EST [place] [address] Nuha Shen MD CARDIAC CATHETERIZATION 06/08/2024 Ophth Exam Ophthalmology at [place] [phone] Yumiko De La Torre, COT 06/03/2024 [place] [address] Unknown 06/03/2024 Travel 06/02/2024 11:09 PM EDT - 06/21/2024 1:07 PM EST Hospital Encounter Heart and Vascular Unit Level 4 [place] [phone] Nuha Shen MD Costa, Salvatore P, MD Bernas, Monika A, MD Flint, MD Fitz Duval, MD Freedom Lopez, Wendi Santiago MD ST elevation myocardial infarction (STEMI), unspecified artery; Coronary artery disease involving stebbins coronary artery of stebbins heart without angina pectoris; S/P CABG x 3 Discharge Disposition: Home with [facility] 06/02/2024 11:00 PM EDT - 06/03/2024 12:18 AM [place] [phone] Nuha Shen MD CARDIAC CATHETERIZATION 06/02/2024 External [place] [address] 06/02/2024 Notes Only Cardiology [place] [phone] Sascha Silva MD from Last 3 Months Social History Tobacco Use Types Packs/Day Years Used Date Smoking Tobacco: Every Day Cigarettes Smokeless Tobacco: Never Tobacco Cessation:Ready to Q uit: No; Counseling Given: Yes [facility] Utilities Answer Date Recorded In the past [...] any time in the past 12 m [facility], were you homeless or living [...] 07/20/2024 3:32 PM EST Plan of Treatment Upcoming Encounters Date Type Department Care Team (Late st Contact Info) Description 08/14/2024 Hospital Encounter Heart and Vascular Unit Level 3 Wing B at [facility] [place] [address] Jim Benites MD [facility] [place] [address] Health Maintenance Due Date Last Done Comments [...] history exists Medical Devices Implanted Type Area Loaf Counter Device Identifier Shelf Expiration Date Model / Serial / Lot Janett James Dixon Quad Crtd-06/16/2019 Implanted:06/16/2019 (Quantity not on file) Cardiac Resynchronizati on Therapy - Defibrillator Chest Medtronic Cardio - [id number] / [id number] / Description:When scanned at [facility] ([place]), this SureScan System ([id number] and leads 4076, 6935M, and 4298) can [...] taken out of at the conclusion. Octaviano Hawkins RT (R)(MR) 06/04/2024 Clip 35mm Closure Exclusion System Preloaded Atriclip ([id number]) (Autoreq) - [id number] Implanted:Qty: 1 on 06/14/2024 by Wendi Loja MD at [facility] IMPLANTS N/A: Heart ATRICURE - ATRICURE 03/04/2027 [id number] / / [id number] Cable,Cut,Edg,Blnt,S s,3tpr ([id number]) - [id number] Implanted:Qty: 1 on 06/14/2024 by Wendi Loja MD at [facility] IMPLANTS Midline: Sternum [employer] - [id number] 09/10/2028 [id number] / / [id number] Mdt 4076 Capsurefix Novus Lead-06/16/2019 Implanted:Qty: 1 on 06/16/2019 Lead Chest Medtronic Cardio - [id number] 4076 / [id number] / Description:Atrial Lead 4076 See Generator Tab for MRI Conditions Octaviano aHwkins RT (R)(MR) 06/04/2024 Mdt 6935m Lead-06/16/2019 Implanted:Qty: 1 on 06/16/2019 Lead Chest Medtronic Cardio - 4287 6935M / [id number] / Description:RV Lead See Generator Tab for MRI Conditions Octaviano Hawkins RT (R)(MR) 06/04/2024 Mdt 4298 Attain Performa Lead-06/16/2019 Implanted:Qty: 1 on 06/16/2019 Lead Chest Medtronic Cardio - [id number] / [id number] / Description:LV Lead See Generator Tab for MRI Conditions Octaviano Hawkins RT (R)(MR) 06/04/2024 Procedures Procedure Name Priority Date/Time Associated Diagnosis Comments MISC EXTERNAL CARDIOLOGY RESULT Routine 08/13/2024 1:38 PM EST POC, GLUCOSE Routine 07/20/2024 4:31 PM EST [...] 8:39 AM EST Unlisted Cardiac Surg Procedure (70597) 06/14/2024 7:34 AM EST 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) 06/14/2024 7:34 AM EST CAD Endoscopy W/Video-Asst Vein [place], Cabg (64220) 06/14/2024 7:34 AM EST CAD [place]g, Artery-Vein, Two (88979) 06/14/2024 7:34 AM EST CAD Cabg, Arterial, Single (38282) 06/14/2024 7:34 AM EST CAD TRANSESOPHAGEAL ECHOCARDIOGRAM IN THE OR Routine 06/14/2024 7:20 AM EST Coronary artery disease involving stebbins coronary artery of stebbins heart without angina pectoris POC, GLUCOSE Routine [...] 1:08 AM EDT CARDIAC CATHETERIZATION Routine 06/03/20 12:42 AM EDT POC, GLUCOSE Routine 06/02/2024 11:31 PM EDT [facility] EXTERNAL CARDIOLOGY RESULT Routine 06/02/2024 9:54 PM EDT from Last 3 Months Results * External Cardiology Result (08/13/2024 1:38 PM EST) Anatomical Region Laterality Modality Other Historical Provider EXTERNAL CARDIOLO GY RESULT * POC, GLUCOSE (07/20/2024 4:31 PM EST) Only the most recent of134 resultswithin the time period is included. Glucometer, POC 125 65 - 199 mg/dL 07/20/2024 4:31 PM EST [facility] Comment:Supplemental ranges: <140 mg/dL before meals <180 mg/dL all other times of the day. Blood CAPILLARY BLOOD / Unknown 07/20/2024 4:31 PM EST 07/20/2024 4:31 PM EST Wendi Loja MD POINT OF CARE TEST O RDERABLES [facility] [place] [address] * Scan Doc: Telemetry Strips (06/21/2024 7:50 [...] - 199 mg/dL 06/21/2024 3:10 AM EST [facility] Comment:Glucose Concentratio n >=200 mg/dL plus symptoms is consistent with Diabetes Mellitus. Blood Urea Nitrogen 27(H) 10 - 20 mg/dL 06/21/2024 3:10 AM EST [facility] Creatinine 1.24 0.80 - 1.50 [...] EST 06/21/2024 2:37 AM EST Keila Dayan MANAGER [employer] SAL[employer] CHEMISTRY ORDERABL ES [facility] [place] [address] * XR Chest PA & Lateral (Generic) (06/17/2024 1:46 PM EST) Only the most recent of2 resultswithin the time period is included. WORKSTATION ID [id number] RAD Anatomical Region Laterality Modality Chest N/A [...] have questions please contact the health healthcare advisory services manager that requested your imaging first. ? Electronically signed by: Josselyn Spence MD, [facility] ([phone]), at 06/17/2024 4:49 PM Narrative 06/17/2024 4:49 [...] who have questions please contactthe health healthcare advisory services manager that requested your imaging first. Electronically signed by: Josselyn Spence MD, [facility]([phone]), at 06/17/2024 4:49 PM Keila Hanley APRN [...] EST Wendi Loja MD HEMATOLOGY ORDERABLE S [facility] [place] [address] * Lactate, Whole Blood (06/17/2024 2:39 AM EST) Only the most recent of3 resultswithin the time period is included. Lactate, Whole Blood 1.3 0.5 - 2.2 mmol/L 06/17/2024 2:46 AM EST [facility] Blood VENOUS BLOOD SPECIMEN / Unknown Venipuncture / Unknown 06/17/2024 2:39 AM EST 06/17/2024 2:43 AM EST Wendi Loja MD CHEMISTRY ORDERABLES [facility] [place] [address] * (ABNORMAL) Cooximetry, POC (06/15/2024 9:31 AM [...] Coox 0.3 <=1.5 % 06/15/2024 9:34 AM [facility] Blood (Mixed Venous) 06/15/2024 9:31 AM EST 06/15/2024 9:34 AM EST Wendi Loja MD POINT OF CARE TEST O RDERABLES [facility] [place] [address] * (ABNORMAL) Blood Gas, Arterial POC (06/15/2024 [...] MD POINT OF CARE TEST O RDERABLES [facility] [place] [address] * XR Chest One View (06/15/2024 6:31 AM EST) Only the most recent of4 resultswithin the time period is included. WORKSTATION ID [id number] RAD Anatomical Region Laterality Modality Chest N/A [...] have questions please contact the health healthcare advisory services manager that requested your imaging first. ? Electronically signed by: Stuart Aponte MD, [facility] ??([phone]), at 06/15/2024 10:38 AM Narrative 06/15/2024 10:38 [...] who have questions please contactthe health healthcare advisory services manager that requested your imaging first. Electronically signed by: Stuart Aponte MD, [facility]([phone]), at 06/15/2024 10:38 AM Wendi Loja MD IMG DX ORDERABLES * (ABNORMAL) Troponin - Single (06/15/2024 1:48 AM EST) [facility] Troponin-T, High Sensitivity 667(H) <=22 ng/L 06/15/2024 2:22 AM EST [facility] Comment: This patient's troponin T [...] troponin value can be found in the [facility] Test Catalog Troponin - [email or web address].testcatalog.org/catalogs/565/[email or web address]/44347 Reference: Fourth Biggs Definition of Myocardial Infarction. Journal of the [place] College of Cardiology 2018;72:2825-3808 Blood VENOUS BLOOD SPECIMEN / Unknown Venipuncture / Unknown 06/15/2024 1:48 AM EST 06/15/2024 1:52 AM EST Wendi Loja MD CHEMISTRY ORDERABLES [facility] [place] [address] * (ABNORMAL) CBC (with Diff) (06/15/2024 1:48 AM EST) Only the most recent of13 resultswithin the time period is included. White Blood Cell 11.71(H) 4.00 - 9.50 x10(3)/mc L 06/15/2024 2:13 AM [facility] Red [...] - 3.20 x10(3)/mc L 06/15/2024 2:13 AM [facility] Monocyte % 11.4 % 06/15/2024 2:13 AM [facility] Monocyte Absolute 1.33(H) 0.30 - 0.90 x10(3)/mc L 06/15/2024 2:13 AM [facility] Eos % 0.2 % 06/15/2024 2:13 AM [facility] Eos Absolute <0.04 0.00 - 0.40 x10(3)/mc L 06/15/2024 2:13 AM [facility] Basophil % 0.2 % 06/15/2024 2:13 AM [facility] Baso Absolute <0.04 0.00 - 0.10 x10(3)/mc L 06/15/2024 2:13 AM [facility] Immature Gran % 0.5 % 2:13 AM EST [facility] Immature Gran Absolute 0.06(H) 0.00 - 0.04 x10(3)/mc L 06/15/2024 2:13 AM EST [facility] Blood VENOUS BLOOD SPECIMEN / Unknown Venipuncture / Unknown 06/15/2024 1:48 AM EST 06/15/2024 1:52 AM EST Wendi Loja MD HEMATOLOGY ORDERABLE S [facility] [place] [address] * Potassium (06/14/2024 11:28 PM EST) Only the most recent of13 resultswithin the time period is included. Potassium 4.1 3.5 - 5.0 mMol/L 06/14/2024 11:54 PM EST [facility] Blood VENOUS BLOOD SPECIMEN / Unknown Venipuncture / Unknown 06/14/2024 11:28 PM EST 06/14/2024 11:34 PM EST Wendi Loja MD CHEMISTRY ORDERABLES Performing Organization Address [facility] Co de Phone Number [facility] [place] [address] * (ABNORMAL) Hemoglobin (06/14/2024 6:19 PM EST) Hemoglobin 13.1(L) 13.7 - 16.5 g/dL 06/14/2024 7:08 PM EST [facility] Blood VENOUS BLOOD SPECIMEN / Unknown Venipuncture / Unknown 06/14/2024 6:19 PM EST 06/14/2024 6:28 PM EST Wendi Loja MD HEMATOLOGY ORDERABLE S Performing Organization Address City/[facility]/ZIP Co de Phone Number [facility] [place] [address] * EKG 12 Lead (06/14/2024 2:46 PM EST) Only the most recent of2 resultswithin the time period is included. Ventricular rate 80 BPM MUSE SYSTEM Atrial Rate 80 BPM MUSE SYSTEM P-R Interval 120 ms MUSE SYSTEM QRS Duration 108 ms MUSE SYSTEM Q-T Interval 454 ms MUSE SYSTEM QTC Calculated (Bezet) 523 ms MUSE SYSTEM Calculated P [place] 70 degrees MUSE SYSTEM Calculated R [place] 56 degrees MUSE SYSTEM Calculated T [place] 50 degrees MUSE SYSTEM INTERPRETATION AV dual-paced rhythm Abnormal ECG When compared with ECG of 03-JUN-2024 01:45, Vent. rate has increased BY ??17 BPM Confirmed by MD Marisol, Shaheen ([id number]) on 06/15/2024 1:57:23 PM MUSE SYSTEM 06/14/2024 2:46 PM EST 06/15/2024 1:57 PM EST Wendi Loja MD ECG ORDERABLES MUSE SYSTEM * Prepare RBC (06/14/2024 2:27 PM EST) Status Information Returned [facility] Product Identification RBC [facility] Unit Number [id number] [facility] Product Code [id number] [facility] Unit Blood Type OPOS [facility] Specimen Expiration Date [facility] Volulme 350 [facility] Issue [facility] / Time [facility] Status Information Returned [facility] Product Identification RBC [facility] Unit Number [id number] [facility] Product Code [id number] [facility] Unit Blood Type OPOS [facility] Specimen Expiration Date [facility] Volulme 350 [facility] Issue Date / Time [facility] Blood 06/14/2024 6:2 5 AM EST Haja Byrnes MD BLOOD BANK PRODUCT O RDERABLES [facility] [place] [place] [address] * (ABNORMAL) Platelet count (06/14/2024 12:30 PM EST) Only the most recent of2 resultswithin the time period is included. Platelet 73(L) 145 - 357 x10(3)/mcL 06/14/2024 12:54 PM EST [facility] Blood ARTERIAL BLOOD / Unknown 06/14/2024 12:30 PM EST Comment:Pre-op diagnosis: CAD Wendi Loja MD HEMATOLOGY ORDERABLE S [facility] [place] [address] * (ABNORMAL) Hemoglobin and Hematocrit, blood (06/14/2024 12:30 PM EST) Only the most recent of2 resultswithin the time period is included. Hemoglobin 10.9(L) 13.7 - 16.5 g/dL 06/14/2024 12:54 PM EST [facility] Hematocrit 33.5(L) 40.5 - 48.5 % 06/14/2024 12:54 PM EST [facility] Comment:This result has been called to Danielle López by Satya Page on 06/14/2024 12:53:56, and has been read back. Blood ARTERIAL BLOOD / Unknown 06/14/2024 12:30 PM EST 06/14/2024 12:42 PM EST Comment:Pre-op diagnosis: CAD Wendi Loja MD HEMATOLOGY ORDERABLE S [facility] [place] [address] * APTT (06/14/2024 12:30 PM EST) Only the most recent of2 resultswithin the time period is included. Partial Thromboplastin Time 31 25 - 37 sec 06/14/2024 12:57 PM EST [facility] Comment: The PTT is NOT appropriate for heparin monitoring. Use the Anti-Xa level for heparin monitoring (HEP UFH) or LMWH monitoring (HEP LMW). A PTT less than 37 seconds generally indicates adequate hemostasis. Blood ARTERIAL BLOOD / Unknown 06/14/2024 12:30 PM EST 06/14/2024 12:42 PM EST Comment:Pre-op diagnosis: CAD Wendi Loja MD HEMATOLOGY ORDERABLE S [facility] [place] [address] * (ABNORMAL) Prothrombin Time (06/14/2024 12:30 PM EST) Only the most recent of2 resultswithin the time period is included. Prothrombin Time 16.8(H) 9.4 - 12.5 sec 06/14/2024 12:57 PM EST [facility] International Normalization Ratio 1.5 <=4.9 06/14/2024 12:57 PM EST [facility] Comment: An INR < 2.0 [...] MD HEMATOLOGY ORDERABLE S Performing Organization Address City/[facility]/ZIP Co de Phone Number [facility] [place] [address] * Fibrinogen (06/14/2024 12:30 PM EST) Fibrinogen 211 200 - 393 mg/dL 06/14/2024 12:57 PM EST [facility] Comment: A fibrinogen level >100 mg/dL is adequate for hemostasis in most patients without underlying bleeding disorders. Blood ARTERIAL BLOOD / Unknown 06/14/2024 12:30 PM EST 06/14/2024 12:42 PM EST Comment:Pre-op diagnosis: CAD Wendi Loja MD HEMATOLOGY ORDERABLE S Performing Organization Address [facility]/ZIP Co de Phone Number [facility] [place] [address] * (ABNORMAL) Scan, Peripheral Blood (06/14/2024 11:23 AM EST) RBC Morphology Abnormal 06/14/2024 11:59 AM EST [facility] Platelet Estimate Decreased(A) Normal 06/14/2024 11:59 AM EST [facility] [place] cells 1-5 /HPF 06/14/2024 11:59 AM EST [facility] Blood ARTERIAL BLOOD / Unknown 06/14/2024 11:23 AM EST 06/14/2024 11:27 AM EST Wendi Loja MD HEMATOLOGY ORDERABLE S Performing Organization Address [facility] Co de Phone Number [facility] [place] [address] * Surgical Pathology (06/14/2024 9:53 AM EST) Case Report Surgical Pathology Report ? Case: [id number] ? Authorizing Provider: ??Wendi Loja MD ? [...] in Clinical Information MARIALUISA 06/18/2024 10:18 AM EST [facility] Gross Description A. Soft Tissue Mass, mediastinal mass. A - Labeled/Fixative : Mediastinal mass, fresh. Quantity/Size: Single, 7.2 x 5.3 x 1.2 cm. Tissue Description: Unoriented, intact portion of soft, rodriguez-yellow, lobulated tissue. The cut surface is homogenously pale-rodriguez, yellow and lobulated. No lesions or nodules are identified. Inking: External surface inked black Sections/Process ing: Casting And Curing Operator sections in 4 cassettes labeled A1-A4. cmk B. Heart, Atrial Appendage, Left, . B - Labeled/Fixative : Heart, atrial appendage, left, fresh. Quantity/Size: Single, 3.3 x 1.5 x 0.8 cm. Tissue Description: Portion of heart tissue consisting of rodriguez-white, semitranslucent, smooth endocardium with rodriguez-brown muscular myocardium and thin translucent epicardium with adherent adipose tissue. No areas of discoloration identified. Sections/Process ing: Casting And Curing Operator sections in 1 cassette labeled B1. cmk 06/18/2024 10:18 AM EST [facility] Result Note Routine 06/18/2024 10:18 AM EST [facility] Tissue SOFT TISSUE MASS / Unknown 06/14/2024 9:53 AM EST 06/14/2024 2:13 PM EST Comment:Mediastinal mass Tissue specimen (specimen) LEFT ATRIAL APPENDAGE ABSENT / Unknown 06/14/2024 10:54 AM EST 06/14/2024 2:13 PM EST Comment:MARIALUISA Wendi Loja MD PATHOLOGY/CYTOLOGY O RDERABLES [facility] [place] [address] * Transesophageal Echo/OR (06/14/2024 7:20 AM EST) Anatomical Region Laterality Modality Cardiac Other 06/14/2024 7:20 AM EST Narrative 06/14/2024 4:36 PM EST Version: 2 Study ID: [id number] [address] [place] [address] ?OR Transesophageal Echo Report Name: GEORGE MEHTA [...] of this mass after consultation with other patient accounting representative experts and the decision was made [...] MD ? 06/14/2024, 4: 38 PM Procedure Hosea Bentley MD - 06/14/2024 Version: 2 Study ID: [id number] [address] [place] [id number] ORTransesophageal Echo Report Name: GEORGE MEHTA Study [...] of this mass after consultation with other patient accounting representative experts and thedecision was made by [...] the time period is included. UF Heparin 1.02([facility]) IU/mL 06/14/2024 12:46 AM EST [facility] Comment: Heparin (anti-Xa) levels should [...] 12:12 AM EST 06/14/2024 12:29 AM EST Isaac Mares MD HEMATOLOGY ORDERABLE S Performing Organization Address [facility] Co de Phone Number [facility] [address] * Magnesium (06/14/2024 12:12 AM EST) Only the most recent of12 resultswithin the time period is included. Magnesium 0.74 0.69 - 1.07 mMol/L 06/14/2024 12:57 AM EST [facility] Blood VENOUS BLOOD SPECIMEN / Unknown Venipuncture / Unknown 06/14/2024 12:12 AM EST 06/14/2024 12:29 AM EST Isaac Mares MD CHEMISTRY ORDERABLES Performing Organization Address [facility] Co de Phone Number [facility] [place] [address] * Scan Doc: Implantable Devices (06/14/2024 12:00 AM EST) Narrative 06/14/2024 12:00 AM EST Ordered by an unspecified provider. Scanning Provider MEDIA MGR SCAN EXT O RDR/RSLT * ABORH RECHECK (06/13/2024 4:11 PM EST) ABORH Recheck O POSITIVE 06/13/2024 4:50 PM EST [facility] Blood VENOUS BLOOD SPECIMEN / Unknown Venipuncture / Unknown 06/13/2024 4:11 PM EST 06/13/2024 4:19 PM EST Haja Byrnes MD BLOOD BANK LAB ORDER EUSEB[place] [facility] [place] [place] [address] * Type and screen ([facility]/CGP/RAFITA) (06/13/2024 11:53 AM EST) [facility] ABOR Type O POSITIVE 06/13/2024 1:16 PM EST [facility] PATIENT HISTORY Not Found 06/13/2024 1:16 PM EST [facility] Expires at 2359 on: 06/16/2024 06/13/2024 1:16 PM EST [facility] ANTIBODY SCREEN AUTOMATED Negative 06/13/2024 1:16 PM EST [facility] T&S only valid at [facility] 06/13/2024 1:16 PM EST [facility] Blood VENOUS BLOOD SPECIMEN / Unknown Venipuncture / Unknown 06/13/2024 11:53 AM EST 06/13/2024 11:56 AM EST Narrative [facility] - 06/13/2024 1:16 PM EST This Type and Screen result is only valid at the [facility] Haja Byrnes MD BLOOD BANK LAB ORDER EUSEB[place] Performing Organization Address City/[facility] Co de Phone Number [facility] [place] [place] [address] * CARDIAC CATHETERIZATION (06/13/2024 9:02 AM EST) Only the most recent of2 resultswithin the time period is included. Anatomical Region Laterality Modality Other Narrative 06/15/2024 9:07 AM EST ?[facility] ? Cardiac Catheterization/Intervention Report ? Patient Name: Tyson, George L. ? Procedure Date: 06/13/2024 ? A #: [id number] ? Primary Physician: Nuha Shen I ? Case #: [id number] ? File Name: [id number] ? Catheterization Order Number: [id number] ? [facility] ? Final Report [place], [place] ? Patient Name: ? George L. Tyson ? ID#: ?[id number] ? : ?1955 ? Procedure Date: ? June 13, 2024 ?Case #: ? [id number] ? Room: ? 6 ? Case Physician: [...] ?was designated as ASA Class IV. The [facility] clinical frailty scale is 5: ?Mildly [...] procedure was Urgent. The indication for ?the dye lab technician visit is ACS greater than 24 [...] angiography, vascular ?ultrasound and IABP insertion in dye lab technician. ? Nuha I Hermelinda, M.D. ? Electronically Signed by: Nuha I Hermelinda, M.D. ? Report Finalized: 06/15/2024 ??08:59 ? Procedure Note Nuha Shen MD - 06/15/2024 [facility] Cardiac Catheterization/Intervention Report Patient Name: George Mehta Procedure Date: 06/13/2024 A #: [id number] Primary Physician: Nuha Shen I Case #: [id number] File Name: [id number] Catheterization Order Number: [id number] [facility] FinalReport [place], [place] Patient Name: George Mehta ID#:[id number] :1955 Procedure Date: June 13, 2024 Case [...] was designated as ASA Class IV. The [facility] clinical frailty scale is5: Mildly Frail. [...] diagnostic procedure was Urgent. The indicationfor the dye lab technician visit is ACS greater than 24 [...] site angiography,vascular ultrasound and IABP insertion in dye lab technician. Nuha Shen M.D. Electronically Signed by: [...] 0.5 <=1.5 % 06/10/2024 5:50 PM EST [facility] Sodium, Venous 137 135 - 145 mmol/L 06/10/2024 5:50 PM EST [facility] Chloride, Venous 96(L) 98 - 107 mmol/L 06/10/2024 5:50 PM EST [facility] Potassium, Venous 4.6 3.5 - 5.0 mmol/L 06/10/2024 5:50 PM EST [facility] Ionized Calcium, Venous 1.23 1.15 [...] PM EST Melida Valdes MD CHEMISTRY ORDERABLES [facility] [place] [address] * MRI Cardiac Morphology Function wwo Contrast (06/07/2024 1:10 PM EST) WORKSTATION ID [id number] RAD Anatomical Region Laterality Modality Magnetic Resonan [...] - Mildly dilated left ventricle size with pzkpmfrl-jz-sfbeliby decreased LV systolic function. ??LV ejection fraction [...] have questions please contact the health healthcare advisory services manager that requested your imaging first. ? Electronically signed by: Kriss Alonzo MD, [facility] ([phone]), at 06/07/2024 2:41 PM Narrative 06/07/2024 2:41 [...] VENTRICLE: Mildly dilated left ventricle size with yzaezkgh-xu-tiqhbedt decreased LV systolic function. ??LV ejection fraction [...] VENTRICLE: Mildly dilated left ventricle size with fdwfzeiy-xa-kmlozsrm decreasedLV systolic function. LV ejection fraction is [...] - Mildly dilated left ventricle size with yxokqxyp-br-fjsvmehc decreasedLV systolic function. LV ejection fraction is [...] who have questions please contactthe health healthcare advisory services manager that requested your imaging first. Electronically signed by: Kriss Alonzo MD, [facility]([phone]), at 06/07/2024 2:41 PM Delroy Fofana MD IM MRI ORDERABLES * (ABNORMAL) Hemoglobin A1c (06/06/2024 3:33 AM EST) Hemoglobin A1c 7.1(H) 4.3 - 5.6 % 06/06/2024 1:01 PM [facility] Comment: Per ADA [...] red blood cell turnover may not be insurance representative of glycemic control. Reference Interval: 4.3 - 5.6% 5.7 - 6.4%: Consistent with prediabetes >=6.5%: Consistent with diagnosis of diabetes mellitus Estimated Average Glucose 157 mg/dL 06/06/2024 1:01 PM [facility] Blood VENOUS BLOOD SPECIMEN / Unknown Venipuncture / Unknown 06/06/2024 3:33 AM EST 06/06/2024 3:48 AM EST Alejandra Baumann MANAGER [employer] CHEMISTRY ORDERAB LES [facility] [place] [address] * Scan Doc: Implantable Devices (06/04/2024 12:00 AM EDT) Narrative 06/04/2024 12:00 AM EDT Ordered by an unspecified provider. Scanning Provider MEDIA MGR SCAN EXT O RDR/RSLT * CT Chest wo Contrast (Generic) (06/03/2024 4:33 PM EDT) WORKSTATION ID [id number] RAD Anatomical Region Laterality Modality Chest Computed Tomogra phy Impressions 06/03/2024 4:47 PM EDT Cardiomegaly. Biventricular ICD leads in place. Thank you for letting us participate in the care of this patient. ??If you are a health care provider and have any questions regarding this report, please contact the number below. ??For patients who have questions please contact the health healthcare advisory services manager that requested your imaging first. ? [...] who have questions please contactthe health healthcare advisory services manager that requested your imaging first. Electronically signed by: Stuart Aponte MD, [facility]([phone]), at 06/03/2024 4:47 PM Wendi Loja MD IMG CT ORDERABLES * Carotid Duplex, Bilateral (06/03/2024 2:19 PM EDT) VB Text Report Department: Vascular Surgery Lab Patient: [id number] (GEORGE MEHTA) CPT: 65164 Referring Physician: WENDI LOJA ?? Phone: Indications: [...] 266(H) <=22 ng/L 06/03/2024 10:50 AM EDT [facility] Comment: This patient's troponin T [...] troponin value can be found in the [facility] Laboratory Test Catalog Troponin - https://one-.testcatalog.org/catalogs/565/files/51487 Reference: Fourth Biggs Definition of Myocardial Infarction. Journal of the [place] College of Cardiology 2018;72:9646-5265 Troponin-T, HS 3 hr delta 06/03/2024 10:50 AM EDT [facility] Comment:Delta troponin value not calculated, sample collected outside of delta calculation time limit. Blood VENOUS BLOOD SPECIMEN / Unknown IP Care Team Draw / Unknown 06/03/2024 10:06 AM EDT 06/03/2024 10:15 AM EDT Delroy Fofana MD CHEMISTRY ORDERABLE S [facility] [place] [address] * ECHO COMPLETE W CONTRAST (06/03/2024 8:46 AM EDT) Anatomical Region Laterality Modality Cardiac Other 06/03/2024 6:52 AM EDT Narrative 06/03/2024 10:32 AM EDT [address] [place] [address] ? Echocardiogram Report Name: GEORGE MEHTA ?Study Date: 06/03/2024 06:52 AM : 1955 ? Height: 168 cm ? Account: [id number] Age: 69 yrs ? Weight: 102 kg Gender: Male ?BSA: 2.1 m2 Ordering Physician: ISAAC MARES Referring Physician: NEHAL QUINTERO Performed By: Sara Kebede RDCS Reason For Study: STEMI Exam Location: [facility]. Interpretation Summary -Left ventricular systolic [...] fellow performed study of today's date). Procedure Complete-95555. Image enhancement Optison was used for left [...] Note Jonnie Jordan MD - 06/03/2024 [address] [place] [id number] Echocardiogram Report Name: GEORGE MEHTA Study Date: 406:52 AM : 1955 Height: 168 cm Account: [id number] Age: 69 yrs Weight: 102 kg Gender: Male BSA: 2.1 m2 Ordering Physician: ISAAC MARES Referring Physician: NEHAL QUINTERO Performed By: Sara Kebede RDCS Reason For Study: STEMI Exam Location: [facility]. Interpretation Summary -Left ventricular systolic [...] a fellow performed study of's date). Procedure Complete-[id number]. Image enhancement Optison was used for left [...] Dyskinetic 3-5moderate 5 - 6-14large Aneurysmal 15-16diffuse Isaac Mares MD ECHO ORDERABLES * (ABNORMAL) Troponin-T, High Sensitivity 1 Hour (06/03/2024 8:27 AM EDT) Only the most recent of2 resultswithin the time period is included. [facility] Troponin-T, High Sensitivity 289(H) <=22 ng/L 06/03/2024 9:26 AM EDT [facility] Comment: This patient's troponin T [...] troponin value can be found in the [facility] Test Catalog Troponin - https://one-dh.testcatalog.org/catalogs/565/files/74933 Reference: Fourth Biggs Definition of Myocardial Infarction. Journal of the [place] College of Cardiology 2018;72:7108-4739 Troponin-T, HS 1 hr delta 5 ng/L 06/03/2024 9:26 AM EDT [facility] Comment:The 1 hour Troponin T delta value is the absolute difference between the Troponin T concentrations of the initial and subsequent sample collected between 45 - 120 minutes following the initial collection. Blood VENOUS BLOOD SPECIMEN / Unknown IP Care Team Draw / Unknown 06/03/2024 8:27 AM EDT 06/03/2024 8:37 AM EDT Delroy Fofana MD CHEMISTRY ORDERABLE S [facility] [place] [address] * (ABNORMAL) Troponin-T, High Sensitivity (06/03/2024 7:39 AM EDT) Only the most recent of2 resultswithin the time period is included. Troponin-T, High Sensitivity Initial 284(H) <=22 ng/L 06/03/2024 8:29 AM EDT [facility] Comment: This patient's troponin T [...] troponin value can be found in the [facility] Test Catalog Troponin - https://one-.testcatalog.org/catalogs/565/files/14176 Reference: Fourth Biggs Definition of Myocardial Infarction. Journal of the [employer] College of Cardiology 2018;72:5236-9754 Blood VENOUS BLOOD SPECIMEN / Unknown IP Care Team Draw / Unknown 06/03/2024 7:39 AM EDT 06/03/2024 7:48 AM EDT Delroy Fofana MD CHEMISTRY ORDERABLE S Performing Organization Address City/State/[facility] Co de Phone Number [facility] [place] [address] * Echocardiogram Transthoracic (06/03/2024 2:23 AM EDT) Anatomical Region Laterality Modality Cardiac Other 06/03/2024 2:23 AM EDT Narrative 06/03/2024 10:32 AM EDT [address] [place] [address] ? Echocardiogram Report Name: GEORGE MEHTA ?Study Date: 06/03/2024 02:23 AM : 1955 Age: 69 yrs Gender: Male Performed By: Sascha Silva MD Reason For Study: STEMI Interpreting Fellow: Sascha Silva. Interpretation Summary Limited echo performed by fellow protection agent to assess LV function. Left ventricle is mild to moderately dilated. Left ventricular ejection fraction is estimated visually at 25%. There is global dyskinesia with mid-basilar posterior-posterolateral akinesis. Right ventricle is not well seen. RV systolic function is probably normal. There is no prior echo for comparison. Procedure Limited - 67489. Suboptimal quality. Ventricular paced. Left Ventricle Left [...] Note Jonnie Jordan MD - 06/03/2024 [address] [place] [address] Echocardiogram Report Name: TYSON GEORGE L Study Date: 06/03/2024 02:23AM : 1955 Age: 69 yrs Gender: Male Performed By: Sascha Silva MD Reason For Study: STEMI Interpreting Fellow: Sascha Silva. Interpretation Summary Limited echo performed by fellow protection agent to assess LV function. Left ventricle is mild to moderately dilated. Left ventricular ejectionfraction is estimated visually at 25%. There is global dyskinesia withmid-basilar posterior-posterolateral akinesis. Right ventricle is not well seen. RV systolic function is probablynormal. There is no prior echo for comparison. Procedure Limited - 32583. Suboptimal quality. Ventricular paced. Left Ventricle Left [...] - 4.5 mg/dL 06/03/2024 3:02 AM EDT [facility] Blood VENOUS BLOOD SPECIMEN / Unknown IP Care Team Draw / Unknown 06/03/2024 2:13 AM EDT 06/03/2024 2:32 AM EDT Isaac Mares MD CHEMISTRY ORDERABLES Performing Organization Address City/[facility]/ZIP Co de Phone Number [facility] [place] [address] * (ABNORMAL) pro-Brain Natriuretic Peptide (06/03/2024 2:13 AM EDT) NT-proBNP 1,628(H) <=124 pg/mL 06/03/2024 4:15 AM EDT [facility] Blood VENOUS BLOOD SPECIMEN / Unknown IP Care Team Draw / Unknown 06/03/2024 2:13 AM EDT 06/03/2024 2:32 AM EDT Isaac Mares MD CHEMISTRY ORDERABLES Performing Organization Address [facility]/ZIP Co de Phone Number [facility] [place] [address] * Hepatic Function Panel (06/03/2024 2:13 AM EDT) Albumin 3.8 3.2 - 5.2 g/dL 06/03/2024 3:02 AM EDT [facility] Aspartate Aminotransferase 20 <=39 unit/L 06/03/2024 3:02 AM EDT [facility] Alanine Aminotransferase 12 0 - 55 unit/L 06/03/2024 3:02 AM EDT [facility] Alkaline Phosphatase 76 40 - 130 unit/L 06/03/2024 3:02 AM EDT [facility] Bilirubin, Total 0.4 <=1.3 mg/dL 06/03/2024 3:02 AM EDT [facility] Bilirubin, Direct <0.2 0.0 - 0.3 mg/dL 06/03/2024 3:02 AM EDT [facility] Protein, Total 7.0 6.1 - 8.0 g/dL 06/03/2024 3:02 AM EDT [facility] Blood VENOUS BLOOD SPECIMEN / Unknown IP Care Team Draw / Unknown 06/03/2024 2:13 AM EDT 06/03/2024 2:32 AM EDT Isaac Mares MD CHEMISTRY ORDERABLES [facility] [place] [address] * Lipid Panel (Reflex Direct LDL) (06/03/2024 2:13 AM EDT) Cholesterol, Total 76 mg/dL 06/03/2024 3:02 AM EDT [facility] Comment: Desirable: < 200 mg/dL Borderline High: 200 - 239 mg/dL High: > or = 240 mg/dL Triglyceride 75 mg/dL 06/03/2024 3:02 AM EDT [facility] Comment: Normal: <150 mg/dL Borderline High: 150-199 mg/dL High: 200-499 mg/dL Very High: > or =500 mg/dL HDL Cholesterol 39 mg/dL 3:02 AM EDT [facility] Comment:Males: High Risk: <4 0 mg/dL LDL Cholesterol 21 mg/dL 3:02 AM EDT [facility] Comment: Desirable: <100 mg/dL Above Desirable: 100-129 mg/dL Borderline High: 130-159 mg/dL High: 160-189 mg/dL Very High: > or =190 mg/dL Note: LDL calculation updated to the NIH LDL formula as of 03/07/2024 Non-HDL Cholesterol 37 mg/dL 06/03/2024 3:02 AM EDT [facility] Comment: Desirable: <130 mg/dL Above Desirable: 130-159 mg/dL Borderline High: 160-189 mg/dL High: 190-219 mg/dL Very High: > or = 220 mg/dL Blood VENOUS BLOOD SPECIMEN / Unknown IP Care Team Draw / Unknown 06/03/2024 2:13 AM EDT 06/03/2024 2:32 AM EDT Narrative [facility] - 06/03/2024 3:02 AM EDT [...] ACC/AHA Guidelines (most recently Bruce et al. [facility] 05/07/22): * For individuals with atherosclerotic cardiovascular [...] infarction, ischemic stroke, symptomatic peripheral artery disease) Isaac Mares MD CHEMISTRY ORDERABLES [facility] [place] [address] * External Cardiology Result (06/02/2024 9:54 PM [...] wishes to be Full Code Care Teams Application Services Manager Relationship Specialty Start Date End Date Mauro Berumen MD [address] [place] [address] PCP - General Family Medicine 06/02/24
--- OUTSIDE RECORDS SUMMARY | 2024-08-13 17:12 | XMS_ITS | Encounter Summary ---
Author Organization [facility] Address [facility] [place] [address] Care Team Providers Care Cmm Programmer Name Role Phone Mauro Berumen MD Primary Care Provider [phone] Encounter Details Date Type Department Care Team (Latest Contact Info) Description 06/15/2024 Unscheduled Encounter Cardiology at [address] [place] [id number] Ross Corbin PA [facility] [place] [address] Cardiac resynchronization therapy defibrillator (FUR MATCHER-D) in place [Z95.810] Social History Tobacco Use Types Packs/Day Years Used Date Smoking Tobacco: Every Day Cigarettes Smokeless Tobacco: Never [facility] Utilities Answer Date Recorded In the past [...] PM EST Cardiac Device Interrogation Arturo Mehta [id number] 06/15/2024 History: Arturo Mehta is a 69 year old male with a PMH significant for HTN, HLD, DM2, current TUD (abstinent since admission), ASCVD with multiple prior LA and PCIs, 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 Today, EP was asked to reprogram his FUR MATCHER-D device for the procedure. Vitals: Last Set of Vitals and range of vitals over past 24 hours: Range last 24 hrs Temperature Temp: [34.9 ??C (94.8 ??F)-37.6 ??C (99.7 ??F)] Heart Rate Heart Rate: [80-107] Blood Pressure BP: (115)/(65) Respiratory Rate Resp: [11-24] SpO2 SpO2: [92 %-100 %] Device Interrogation: Data Generator: Medtronic Amplia MRI Quad FUR MATCHER-D [id number] / [id number] - Left-sided implant; 06/16/19 RA Lead: Medtronic [id number] CapSureFix Novus [id number]; 06/16/19 RV Lead: Medtronic [id number] / [id number]; 06/16/19 LV Lead: Medtronic [id number] Attain Performa MRI / [id number]; 06/16/19 Alerts VF Detection OFF, 3+ VF or 3+ FVT Rx Off. Diagnostics Pacing Mode: DDD @ 80/130 bpm Presenting EGMs: BV Underlying Rhythm: Sinus tachycardia ~100 bpm Atrial Pacin.7% Ventricular Pacin.6% FUR MATCHER Pacin% Battery and Leads Voltage: 2.93 V [...] - Contact the device clinic at pager [phone] for any further programming adjustments. Ross Corbin PA-C, PhD 06/15/2024 Pager: [phone] documented in this encounter Plan of Treatment Upcoming Encounters Date Type Department Care Team (Late st Contact Info) Description 08/14/2024 Hospital Encounter Heart and Vascular Unit Level 3 [place] [phone] Jim Benites MD [facility] [place] [place] [address] documented as of this encounter Visit Diagnoses Diagnosis Cardiac resynchronization therapy defibrillator (FUR MATCHER-D) in place [Z95.810] documented in this encounter Care Teams Cmm Programmer Relationship Specialty Start Date End Date Mauro Beruemn MD [address] [place] [address] PCP - General Family Medicine 06/02/24 documented as of this encounter
--- OUTSIDE RECORDS SUMMARY | 2024-08-13 17:12 | XMS_ITS | Encounter Summary ---
Author Organization [facility] Address [facility] [place] [address] Care Team Providers Care Ui Lead Developer Name Role Phone Mauro Berumen MD Primary Care Provider [phone] Reason for Referral * Consultation (Routine) - Pending Review Specialty Diagnoses / Procedures Referred By Contac t Referred To Contact Cardiology Diagnoses S/P CABG x 3 Bobby Loja MD [facility] [place] [address] Cardiac Rehab, [address] [place] [address] Referral ID Status Reason Start Date Expiration Date Visits Requested Visits Authorized [id number] Pending Review Consult, Test & Treat 4 12/18/2024 36 36 * Home Health Care (Routine) - Pending Review Specialty Diagnoses / Procedures Referred By Contac t Referred To Contact Diagnoses S/P CABG x 3 Bobby Loja MD [facility] [place] [address] Referral ID Status Reason Start Date Expiration Date Visits Requested Visits Authorized [id number] Pending Review Consult, Test & Treat 4 12/18/2024 999 999 Reason for Visit * Auth/Cert Specialty Diagnoses / Procedures Referred By Contac t Referred To Contact Diagnoses STEMI (ST elevation myocardial infarction) STEMI Procedures CARDIAC CATHETERIZATION EMERGENCY Delroy Monterroso MD [facility] [place] [address] [place] Referral ID Status Reason Start Date Expiration Date Visits Re quested Visits Authorized [id number] 1 1 Encounter Details Date Type Department Care Team (Late st Contact Info) Description 06/02/2024 11:09 PM EDT - 06/21/2024 1:07 PM EST Hospital Encounter Heart and Vascular Unit Level 4 Wing B at [place] [phone] Nuha Shen MD [facility] [place] [address] Delroy Fofana MD [facility] [place] [address] Melida Valdes MD [facility] [place] [address] Ethel Carrillo MD [facility] [place] [address] Haja Byrnes MD [facility] [place] [address] Bobby Loja MD [facility] [place] [address] ST elevation myocardial infarction (STEMI), unspecified artery; Coronary artery disease involving blue lake coronary artery of blue lake heart without angina pectoris; S/P CABG x 3 Discharge Disposition: Home with VNA Social History Tobacco Use Types Packs/Day Years Used Date Smoking Tobacco: Every Day Cigarettes Smokeless Tobacco: Never Tobacco Cessation:Ready to Q uit: No; Counseling Given: Yes [facility] Utilities Answer Date Recorded In the past 12 months has [employer], gas, oil, or water [employer] threatened to shut off services in your [...] time in the past 12 m [facility], were you homeless or living [...] this encounter Discharge Summaries * Keila Hanley, BRIAR CUTTER - 06/21/2024 8:31 AM EST Inpatient - Discharge Summary Patient Name: George Mehta Patient Age: 69 y.o. Birthdate: 1955 Language: Nauruan Race: Choose not to Disclose Ethnicity: Not nor Admit Date: 06/02/2024 Discharge Date: 06/21/2024 Attending Physician: Bobby Loja MD Follow-up Recommendations for Providers: Please continue routine management of cardiovascular risk factors including blood pressure, lipids,glucose, etc. Please note any changes to medications. Patient to follow up with PCP, Mauro Berumen MD, in 1-2 weeks. Patient to follow up with Marine Engine Machinist Apprentice, Kristen Cardenas in 2-3 weeks. Patient to follow up with Cardiac Surgeon, Dr. Bobby Loja, in 4 wks. Inpatient Provider Contact Information: [facility] [place] of [place]iac [place] [facility] [place] [address] FAX [phone] Discharge Diagnoses (Hospital Problems) Primary Diagnoses: STEMI [...] performed by Bobby Loja MD [facility] MAIN OR PRO CABG, ARTERY-VEIN, TWO N/A 06/14/2024 @CABG, TWO VENOUS GRAFTS & ARTERIAL GRAFT (WRVU 7.93) performed by [facility] Loja MD [facility] PRO ENDOSCOPY W/VIDEO-ASST VEIN HARVEST, CABG N/A 06/14/2024 ENDOSCOPIC HARVEST VEIN(S) FOR CABG (WRVU 0.31) performed by Bobby Loja MD at [facility] MAIN OR PRO EXC MEDIASTINAL TUMOR N/A 06/14/2024 @EXCISION OF MEDIASTINAL TUMOR (WRVU 19.55) performed by Bobby Loja MD at [facility] MAIN OR PRO INSERT INTRA-AORTIC BALLOON ASST DEVICE PERCUTANEOUS N/A 06/13/2024 @INSERTION OF IABP,PERCUTANEOUS (WRVU 4.84) performed by Nuha Shen MD at [facility] CATH LABS PRO UNLISTED CARDIAC SURG PROCEDURE N/A 06/14/2024 EXPLORATION AND OVERSEW ATRIAL APPENDAGE (WRVU 5.94) performed by Bobby Loja MD at [facility] [place] Prior To Admission Medications [...] y.o. male with a PMHx of previous NJ s/p PCI x3, ICM/HFrEF (LVEF 30%) s/p ICD, DMII, HTN, HLD, remote melanoma, and smoker who presented to [facility] last night via EMS after developing acute, severe chest pain while watching TV. Patient was ruled in for STEMI, given TNK, ASA, plavix, heparin gtt, and sent to [facility] [place] for [place]. LHC demonstrated severely calcified left coronary system with notable LCx 75/80% lesions and UI LEAD DEVELOPER OM1 with ISR with collateral retrograde filling, [...] at OSH. He was brought to the labview programmer which showed severely calcified left coronary system with notable LCx 75/80% lesions and UI LEAD DEVELOPER OM1 with ISR with collateral retrograde filling, [...] 2 tablespoons of dried fruit. Milk and cz-xtrsg-bbcyx yogurt have 15 grams of carbs in a serving. A serving is 1 cup of milk or 3/4 cup (6 oz) of ze-tsleq-vqaie yogurt. Starchy vegetables have 15 grams of carbs in a serving. A serving is ?? cup of mashed potatoes or sweet potato; 1 cup winter squash; ?? of a small baked potato; ?? cup of cooked beans; or ?? cup cooked corn or green peas. Learn how much carbs to eat each day and at each meal. A dietitian or certified orthotic fitter can teach you how to keep track [...] Bobby Loja and/or the Cardiac Surgery Physician Lithograph Designer Team may be reached at . Weight: [...] Dr. Bobby Loja. You may use a Hoover Track or treadmill but avoid any pulling [...] friends, go to a movie, go to bahai, etc. Heavy activities: No hunting, skiing, jogging, [...] should resume a low fat, low cholesterol, [place] [employer] Diet/Diabetic diet. Driving: No driving [...] while being managed by your PCP and/or Marine Engine Machinist Apprentice. For future medication refills, please refer to your PCP and/or Marine Engine Machinist Apprentice after your discharge from our service. Thank you REMOVE CHEST TUBE SUTURES ON OR AFTER 06/24/2024 Home oxygen therapy: N/A Follow up appointments: You should follow up with your PCP, Mauro Berumen MD, in 1-2 weeks. You should follow up with your Marine Engine Machinist Apprentice, Dr CARDENAS. You have an appointment with your Cardiac Surgeon, Dr. Bobby Loja, in 4 wks. Cardiac Rehabilitation: George Mehta was seen today regarding participation in the outpatient Phase 2 Cardiac Rehabilitation at [facility]. The patient agrees to a referral to this program. The referral will be sent at discharge and the patient should be contacted by the program within 1-2 weeks from discharge. Future Appointments and Orders Future Orders Complete By Expires Referral to Cardiac Rehab [VNI110 Custom] As directed Process Instructions: If no progress note charted, please enter Clinical details in comments. Scheduling Instructions: Questions: My question or request is: s/p CABG- cardiac rehab at [facility] Referral to Home Health [REF34 Custom] As directed Process Instructions: If no progress note charted, please enter Clinical details in comments. Scheduling Instructions: Comments: Please evaluate George Mehta for admission to Home Health. [address] [facility] [address] (home) Date of : 1955 Inpatient DOCUMENTATION FOR VNA SERVICES (INCLUDING THOSE PATIENTS WITH MEDICARE COVERAGE REQUIRINGHOME VNA SERVICES AND/OR HOSPICE SERVICES) PATIENT'S LOCATION: George Mehta [address] [facility] [address] (home) Telephone Information: Dry Starch Supervisor's Name: self In discussion with the attending physician, it is certified that this patient is under their care and that they, or a Nurse Practitioner, or Physician Lithograph Designer who is working directly with them, hada [...] for services as follows: HOME HEALTH AGENCY: [facility]. [address] [place] [id number] RN orders: Cardiopulmonary assessment, incisional assessment, assess [...] issues please call the Cardiology Office at [phone] FOR MEDICARE ONLY: (please delete this section [...] care: As above. Signed: KEILA HANLEY APRN [facility] Section of Cardiac Surgery [facility] [place] [address] FAX [phone] Date: 06/21/2024 CC: MD Antonino Tinajero Joshua R, PA [address] [place] [address] [place] [address] documented in this encounter Discharge Instructions * [...] juice or regular (not diet) soda 6 Octoshapes small box of raisins 4 glucose tablets [...] 2 tablespoons of dried fruit. Milk and jg-tpehl-vpbnu yogurt have 15 grams of carbs in a serving. A serving is 1 cup of milk or 3/4 cup (6 oz) of sa-hsxnn-awdke yogurt. Starchy vegetables have 15 grams of carbs in a serving. A serving is ?? cup of mashed potatoes or sweet potato; 1 cup winter squash; ?? of a small baked potato; ?? cup of cooked beans; or ?? cup cooked corn or green peas. Learn how much carbs to eat each day and at each meal. A dietitian or certified orthotic fitter can teach you how to keep track [...] Bobby Loja and/or the Cardiac Surgery Physician Lithograph Designer Team may be reached at . Weight: [...] Dr. Bobby Loja. You may use a Hoover Track or treadmill but avoid any pulling [...] friends, go to a movie, go to bahai, etc. Heavy activities: No hunting, skiing, jogging, [...] should resume a low fat, low cholesterol, [place] [employer] Diet/Diabetic diet. Driving: No driving [...] while being managed by your PCP and/or Marine Engine Machinist Apprentice. For future medication refills, please refer to your PCP and/or Marine Engine Machinist Apprentice after your discharge from our service. Thank you REMOVE CHEST TUBE SUTURES ON OR AFTER 06/24/2024 Home oxygen therapy: N/A Follow up appointments: You should follow up with your PCP, Mauro Berumen MD, in 1-2 weeks. You should follow up with your Marine Engine Machinist Apprentice, Dr CARDENAS. You have an appointment with your Cardiac Surgeon, Dr. Bobby Loja, in 4 wks. Cardiac Rehabilitation: George Mehta was seen today regarding participation in the outpatient Phase 2 Cardiac Rehabilitation at [facility]. The patient agrees to a referral to [...] of your patient's venous access was performed [facility] Service. The following tasks [...] MARIALUISA clipping. PMH of chronic HFrEF s/p SOIL TECHNICIAN/ICD, IDDM2, HTN, HLD, remote melanoma, active [...] 2 tablespoons of dried fruit. Milk and fq-jhohv-mvrks yogurt have 15 grams of carbs in a serving. A serving is 1 cup of milk or 3/4 cup (6 oz) of fg-vfhtl-ivyfi yogurt. Starchy vegetables have 15 grams of carbs in a serving. A serving is ?? cup of mashed potatoes or sweet potato; 1 cup winter squash; ?? of a small baked potato; ?? cup of cooked beans; or ?? cup cooked corn or green peas. Learn how much carbs to eat each day and at each meal. A dietitian or certified orthotic fitter can teach you how to keep track [...] cheese, and peanut butter. Alejandra Baumann APRN [facility] [place] Endocrinology Diabetes Management Pager [phone] Weekends please page [phone] * Eric Packer PA - 06/20/2024 7:44 AM EST Cardiac Surgery Progress Note George Mehta is a 69 y.o. male with a history of CAD s/p multiple PCI who presented with an anterior STEMI and was given lytics. Cath showed MV CAD without culprit vessel. He is now 6 Days Post-OpCABGx3 and MARIALUISA clipping. PMH of chronic HFrEF s/p SOIL TECHNICIAN/ICD, IDDM2, HTN, HLD, remote melanoma, active [...] 90 Pt is followed by heart failure photographer's assistant at [facility] #IDDM2 DM team following Lantus, SSI Carb controlled diet #Active smoker Duoneb prn Dispo: Floor, full code, home when ready Discussed with attending surgeon on rounds this morning. 06/20/2024 Between the hours of 1800 - 0600 and on the weekends please page [phone]. * Alejandra Baumann APRN - 06/20/2024 7:21 AM EST Follow Up Diabetes Consult Patient Interview Blood glucose values and insulin use reviewed. material attendant BG to 59 despite decrease in glargine [...] MARIALUISA clipping. PMH of chronic HFrEF s/p SOIL TECHNICIAN/ICD, IDDM2, HTN, HLD, remote melanoma, active smoker. material attendant BG to 59 despite decrease in glargine [...] based on ISF 20 Alejandra Baumann APRN [facility] [place] Endocrinology Diabetes Management Pager [phone] Weekends please page [phone] Insulin Discharge Instructions Preliminary Diabetes Discharge Instructions [...] 2 tablespoons of dried fruit. Milk and od-ayvki-vekpm yogurt have 15 grams of carbs in a serving. A serving is 1 cup of milk or 3/4 cup (6 oz) of sa-azaqg-ourjq yogurt. Starchy vegetables have 15 grams of carbs in a serving. A serving is ?? cup of mashed potatoes or sweet potato; 1 cup winter squash; ?? of a small baked potato; ?? cup of cooked beans; or ?? cup cooked corn or green peas. Learn how much carbs to eat each day and at each meal. A dietitian or certified orthotic fitter can teach you how to keep track [...] MARIALUISA clipping. PMH of chronic HFrEF s/p SOIL TECHNICIAN/ICD, IDDM2, HTN, HLD, remote melanoma, active [...] 90 Pt is followed by heart failure photographer's assistant at [facility] Tx to floor #IDDM2 DM team following pre-op Lantus, SSI Carb controlled diet #Active smoker Duoneb prn Dispo: Floor status, full code Discussed with attending surgeon on rounds this morning. Jeffy Hood MD 06/19/2024 Between the hours of 1800 - 0600 and on the weekends please page [phone]. * Alejandra Baumann, BRIAR CUTTER - 06/19/2024 7:09 AM EST Follow Up Diabetes Consult Patient Interview Blood glucose values and insulin use reviewed. Jardiance added back yesterday, cdl dedicated truck driver low BGto 51. Glargine reduced to 45 [...] MARIALUISA clipping. PMH of chronic HFrEF s/p SOIL TECHNICIAN/ICD, IDDM2, HTN, HLD, remote melanoma, active smoker. Jardiance added back yesterday. material attendant low BG to 51. Glargine reduced to [...] 2 tablespoons of dried fruit. Milk and bf-yfsva-faala yogurt have 15 grams of carbs in a serving. A serving is 1 cup of milk or 3/4 cup (6 oz) of or-ufglw-iomwl yogurt. Starchy vegetables have 15 grams of carbs in a serving. A serving is ?? cup of mashed potatoes or sweet potato; 1 cup winter squash; ?? of a small baked potato; ?? cup of cooked beans; or ?? cup cooked corn or green peas. Learn how much carbs to eat each day and at each meal. A dietitian or certified orthotic fitter can teach you how to keep track [...] cheese, and peanut butter. Alejandra Baumann APRN [facility] [place] Endocrinology Diabetes Management Pager [phone] Weekends please page [phone] * Hilda Resendez PTA - 06/18/2024 9:19 AM EST Physical Therapy Note 2 Patient profile: George Mehta is a 69 y.o. male with a history of CAD s/p multiple PCI who presented with an anterior STEMI and was given lytics. Cath showed MV CAD without culprit vessel. He is now 1 Day Post-Op CABGx3 and MARIALUISA clipping. PMH of chronic HFrEF s/p SOIL TECHNICIAN/ICD, IDDM2, HTN, HLD, remote melanoma, active smoker. Interval History: Per last cardiac surgery note on 06/18/2024 Cr improved 1.4 on lasix 40 iv bid -1.5L, made 2.5L urine Coreg, entresto restarted Floor status Social History: Pt lives with his in a 1 level apartment with no steps to enter. 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 He drives. He sleeps in a recliner at baseline. Precautions/Special Considerations: Sternal precautions, PIV, at risk to fall, PPM Mobility and Positioning Recommendations: Pt to utilize no AD, supervision for ambulation and transfers w/ staff radiologist as able. Please encourage up to chair [...] least restrictive device Time IN / OUT: 2561-8175 Total Time: 11 minutes; TEF 1 Hilda Resendez PTA Pager: [phone] Physical Therapy Inpatient Rehabilitation Department * Keila Hanley, JOSÉ ANTONIO - 06/18/2024 8:48 AM EST Cardiac Surgery Progress Note George Mehta is a 69 y.o. male with a history of CAD s/p multiple PCI who presented with an anterior STEMI and was given lytics. Cath showed MV CAD without culprit vessel. He is now 4 Days Post-OpCABGx3 and MARIALUISA clipping. PMH of chronic HFrEF s/p SOIL TECHNICIAN/ICD, IDDM2, HTN, HLD, remote melanoma, active [...] 90 Pt is followed by heart failure photographer's assistant at [facility], will get name for f/up appt Tx to floor #IDDM2 DM team following pre-op Lantus, SSI Carb controlled diet ? Restarting jardiance #Active smoker Duoneb prn Dispo: CVCC, Full code, tx to floor Discussed with attending surgeon on rounds this morning. KEILA HANLEY, JOSÉ ANTONIO 06/18/2024 Between the hours of 1800 - 0600 and on the weekends please page [phone]. * Alejandra Baumann APRN - 06/17/2024 3:29 [...] MARIALUISA clipping. PMH of chronic HFrEF s/p SOIL TECHNICIAN/ICD, IDDM2, HTN, HLD, remote melanoma, active [...] based on ISF 20 Alejandra Baumann APRN [facility] [place] Endocrinology Diabetes Management Pager [phone] Weekends please page [phone] 35 minutes were spent over the course [...] MARIALUISA clipping. PMH of chronic HFrEF s/p SOIL TECHNICIAN/ICD, IDDM2, HTN, HLD, remote melanoma, active [...] 0600 and on the weekends please page [phone]. * Raymond Carlton MD - 06/16/2024 1:11 PM EST CARDIAC CRITICAL CARE ATTENDING STAFF PROGRESS NOTE Patient seen and examined. George Mehta is a 69 y.o. male with: Active Hospital Problems Diagnosis STEMI (ST elevation myocardial infarction) Cardiac resynchronization therapy defibrillator (SOIL TECHNICIAN-D) - Medtronic Amplia Cardiomyopathy, ischemic Acute on chronic heart failure with reduced ejection fraction (HFrEF, <= 40%) Coronary artery disease involving blue lake coronary artery of blue lake heart without angina pectoris Type 2 diabetes [...] encouragement provided Patient screened for f/u and quality analyst/technical writer met pt at bedside. Pt states [...] unless consulted in the interim. RICHA Simmons Sheet Metal Work Furnace Installer * Octaviano Horvath PA - 06/16/2024 8:07 AM EST Cardiac Surgery Progress Note George Mehta is a 69 y.o. male with a history of CAD s/p multiple PCI who presented with an anterior STEMI and was given lytics. Cath showed MV CAD without culprit vessel. He is now 2 Days Post-OpCABGx3 and MARIALUISA clipping. PMH of chronic HFrEF s/p SOIL TECHNICIAN/ICD, IDDM2, HTN, HLD, remote melanoma, active [...] Hemodynamics: CI 2.4 PAP 30s/20s CVP 13-15 ips: Insulin 06/15 0701 - 06/16 0700 In: [...] 0600 and on the weekends please page [phone]. * Jono Fernandez, PT - 06/15/2024 4:09 PM EST Physical Therapy Evaluation Patient profile: George Mehta is a 69 y.o. male with a history of CAD s/p multiple PCI who presented with an anterior STEMI and was given lytics. Cath showed MV CAD without culprit vessel. He is now 1 Day Post-Op CABGx3 and MARIALUISA clipping. PMH of chronic HFrEF s/p SOIL TECHNICIAN/ICD, IDDM2, HTN, HLD, remote melanoma, active smoker. 24h Events: From OR on Dobutamine IABP removed Bedrest ended ~2100, sedation weaned Extubated ~0200 Dobutamine weaned to 1 this morning, CI 2.6, shut off and repeat CI 2.4 Social History: Pt lives with his in a 1 level apartment with no steps to enter. 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 He drives. He sleeps [...] outlined inthis evaluation. JONO FERNANDEZ, PT Pager: [phone] Physical Therapy Inpatient Rehabilitation Department Time IN / OUT: 1240-0668 Total Time: 33 (eval) minutes * Alejandra Baumann APRN - 06/15/2024 11:39 AM EST Follow Up Diabetes Consult Patient Interview Blood glucose values and insulin use reviewed. Pt remains on an insulin drip today following [id number] MARIALUISA clipping. George continues to complain of [...] MARIALUISA clipping. PMH of chronic HFrEF s/p SOIL TECHNICIAN/ICD, IDDM2, HTN, HLD, remote melanoma, active [...] based on ISF 20 Alejandra Baumann APRN [facility] [place] Endocrinology Diabetes Management Pager [phone] Weekends please page [phone] 50 minutes were spent over the course [...] elevation myocardial infarction) Cardiac resynchronization therapy defibrillator (SOIL TECHNICIAN-D) - Medtronic Amplia Cardiomyopathy, ischemic Acute on chronic heart failure with reduced ejection fraction (HFrEF, <= 40%) Coronary artery disease involving blue lake coronary artery of blue lake heart without angina pectoris Type 2 diabetes [...] with h/o DM, CAD with prior PCI, SOIL TECHNICIAN-D who presented with crushing chest pain, [...] MARIALUISA clipping. PMH of chronic HFrEF s/p SOIL TECHNICIAN/ICD, IDDM2, HTN, HLD, remote melanoma, active [...] sternotomy dressing CDI, saphenectomy dressing CDi Tubes/Lines/Drains: [place], RIJ, A-line, Mediastinal marcos and bilateral pleural [...] 0600 and on the weekends please page [phone]. * Yoli Donaldson RCP - 06/15/2024 5:35 [...] with h/o DM, CAD with prior PCI, SOIL TECHNICIAN-D who presented with crushing chest pain, [...] with h/o DM, CAD with prior PCI, SOIL TECHNICIAN-D who presented with crushing chest pain, [...] 0600 and on the weekends please page [phone]. * Chloé Cortez - 06/14/2024 9:36 AM [...] unless consulted in the interim. Chloé Cortez Wait Staff * Jim Benites MD - 06/13/2024 1:15 [...] - Mildly dilated left ventricle size with hsuejgjx-gb-elhwwgty decreased LV systolic function. LV ejection fraction [...] (abstinent since admission), ASCVD with multiple prior NJ and PCIs, ICM/HFrEF LVEF 30% (all territories [...] elevation myocardial infarction) Cardiac resynchronization therapy defibrillator (SOIL TECHNICIAN-D) - Medtronic Amplia Cardiomyopathy, ischemic Acute on chronic heart failure with reduced ejection fraction (HFrEF, <= 40%) Coronary artery disease involving blue lake coronary artery of blue [place] heart without angina pectoris Type 2 diabetes [...] PCP: Mauro Berumen MD PCP phone number: [phone] Date of Admission: 06/02/2024 ( Hospital Day 10 days ) Attending:Ethel Carrillo MD ID: 69 y.o. male with a h/o DM type 2, HTN, HLD, current smoker (2-3 cigarettes/day), HFrEF with anICD for low EF (~30%), and CAD with prior [place] x3 with JENNA placed in [place], [facility], PAD, presented to [facility] with 1 hour of retrosternal CP (05/13) while watching TV, found to have STEMI. Active Problems: Active Hospital Problems Diagnosis STEMI (ST elevation myocardial infarction) Cardiac resynchronization therapy defibrillator (SOIL TECHNICIAN-D) - Medtronic Amplia Cardiomyopathy, ischemic Acute on chronic heart failure with reduced ejection fraction (HFrEF, <= 40%) Coronary artery disease involving blue [place] coronary artery of blue [place] heart without angina pectoris Type 2 diabetes [...] in the last 7068 hours. Invalid input(s): [id number] Recent Labs 06/12/24 0425 06/11/24 2356 06/11/24 2025 06/11/24 1624 06/11/24 1108 06/11/24 0748 06/11/24 0357 06/11/24 0050 06/10/24 1922 06/10/24 1735 06/10/24 1125 06/10/24 0746 POCGLU 132 135 210* 81 233* 184 132 144 236* 123 216* 206* Heme No results for input(s): LDH, HAPTOGLOBIN, URICACID in the last 168 hours. ABG (Arterial Blood Gas) No results found for: PHART, PO2ART, QZQ9QYY, [id number] Microbiology: Microbiology Results (Last 30 days) No results found for the last 720 hours. Imaging: Results for orders placed or performed during the hospital encounter of 06/02/24 XR Chest One View (Exam End: 06/03/2024 2:41 AM) Result Value WORKSTATION ID [id number] Impression No radiographically evident acute cardiopulmonary process. Thank you for letting us participate in the care of this patient. If you are a health care provider and have any questions regarding this report, please contact the number below. For patients who have questions please contact the health child care aide that requested your imaging first. Cardiac Morphology Function wwo Contrast (Exam End: 06/07/2024 1:10 PM) Result Value WORKSTATION ID [id number] Impression - Findings consistent with an ischemic [...] - Mildly dilated left ventricle size with nnloeczh-pr-feuvzvrr decreased LV systolic function. LV ejection fraction [...] who have questions please contact the health child care aide that requested your imaging first. Chest wo Contrast (Generic) (Exam End: 06/03/2024 4:33 PM) Result Value WORKSTATION ID [id number] Impression Cardiomegaly. Biventricular ICD leads in place. Thank you for letting us participate in the care of this patient. If you are a health care provider and have any questions regarding this report, please contact the number below. For patients who have questions please contact the health child care aide that requested your imaging first. Chest PA & Lateral (Generic) (Exam End: 06/07/2024 7:03 AM) Result Value WORKSTATION ID [id number] Impression Biventricular ICD leads intact and in [...] who have questions please contact the health child care aide that requested your imaging first. : Limited echo performed by fellow guard immigration to assess LV function. Left ventricle is [...] Infusions: heparin (porcine) infusion 1,400 Units/hr (06/12/24 0821) PRN Meds:.insulin lispro, glucose 40% oral geL [...] ischemic cardiomyopathy with HFrEF (~30% EF), prior NJ with stents, DM type 2, HTN, HLD, active smoker, presented with anterior STEMI. Angiography revealed severe multivessel CAD with extensive calcification and YUE 3 flow in all vessels, without a clear culprit lesion. Currently pain-free after TNK, Plavix, ASA, and heparin, with mildly elevated LVEDP at 40 mmHg and mild volume overload. 06/12/24: Patient stable, asymptomatic. Plan to go to [facility] programmer for balloon pump tomorrow, then willgo to [...] CODE Dain Colón MD Cardiology, M1-S2, Pager #[phone] 06/12/24 Associated attestation - Ethel Carrillo MD [...] (abstinent since admission), ASCVD with multiple prior NJ and PCIs, ICM/HFrEF LVEF 30% (all territories [...] Ethel Carrillo MD Cardiovascular Medicine Personal Pager [phone] 06/12/2024 9:12 PM * Alejandra Baumann, BRIAR CUTTER - 06/11/2024 4:21 PM EST Images from [...] too aggressive, suggest ICR 1:6 (rule of 490g201/81 = 6.25). George is up and walking [...] ischemic cardiomyopathy with HFrEF (~30% EF), prior NJ with stents, DM type 2, HTN, HLD, [...] on placing this weekend and transfer to [facility], likely Friday. With lower BG following meal [...] ac, metformin 1000mg BID Alejandra Baumann APRN [facility] Endocrinology Diabetes Management Pager [phone] Weekends please page [phone] 35 minutes were spent over the course [...] PCP: Mauro Berumen MD PCP phone number: [phone] Date of Admission: 06/02/2024 ( Hospital Day 9 days ) Attending:Melida Valdes MD ID: 69 y.o. male with a h/o DM type 2, HTN, HLD, current smoker (2-3 cigarettes/day), HFrEF with anICD for low EF (~30%), and CAD with prior [place] x3 with JENNA placed in [place], Melanoma, PAD, presented to [facility] with 1 hour of retrosternal CP (05/13) while watching TV, found to have STEMI. Active Problems: Active Hospital Problems Diagnosis STEMI (ST elevation myocardial infarction) Cardiac resynchronization therapy defibrillator (SOIL TECHNICIAN-D) - Medtronic Amplia Cardiomyopathy, ischemic Acute on chronic heart failure with reduced ejection fraction (HFrEF, <= 40%) Coronary artery disease involving blue lake coronary artery of blue lake heart without angina pectoris Type 2 diabetes [...] Infiltration 0-->no symptoms 06/03/24399 Labs: Recent Labs 06/11/2421206/10/24 0155 06/09/2421106/08/24 0321 06/07/24 0241 WBC 9.91* 9.00 9.80* 9.92* 10.06* HGB 15.3 14.9 15.5 15.1 14.8 HCT 47.5 46.4 47.4 46.7 46.2 PLATELET 184 191 205 203 202 MCV 92.6 92.2 91.5 91.7 92.0 Recent Labs 06/11/2421206/10/24 01506/09/24 0806/09/2421106/08/24 03206/07/24 0944 06/07/24 0241 NA 134* 138 [...] in the last 7068 hours. Invalid input(s): [id number] Recent Labs 06/11/24 0357 06/11/24 0050 06/10/24 1922 06/10/24 1735 06/10/24 1125 06/10/24 0746 06/10/24 0423 06/10/24 0005 06/09/24 2036 06/09/24 1727 06/09/24 1152 06/09/24 0810 POCGLU 132 144 236* 123 216* 206* 154 125 197 174 211* 209* Heme No results for input(s): LDH, HAPTOGLOBIN, URICACID in the last 168 hours. ABG (Arterial Blood Gas) No results found for: PHART, PO2ART, COY6BPA, PCO9CIQ Microbiology: Microbiology Results (Last 30 days) No results found for the last 720 hours. Imaging: Results for orders placed or performed during the hospital encounter of 06/02/24 XR Chest One View (Exam End: 06/03/2024 2:41 AM) Result Value WORKSTATION ID [id number] Impression No radiographically evident acute cardiopulmonary process. Thank you for letting us participate in the care of this patient. If you are a health care provider and have any questions regarding this report, please contact the number below. For patients who have questions please contact the health child care aide that requested your imaging first. Cardiac Morphology Function wwo Contrast (Exam End: 06/07/2024 1:10 PM) Result Value WORKSTATION ID [id number] Impression - Findings consistent with an ischemic [...] - Mildly dilated left ventricle size with pdtkyunk-gi-dziargjj decreased LV systolic function. LV ejection fraction [...] who have questions please contact the health child care aide that requested your imaging first. Chest wo Contrast (Generic) (Exam End: 06/03/2024 4:33 PM) Result Value WORKSTATION ID [id number] Impression Cardiomegaly. Biventricular ICD leads in place. Thank you for letting us participate in the care of this patient. If you are a health care provider and have any questions regarding this report, please contact the number below. For patients who have questions please contact the health child care aide that requested your imaging first. Chest PA & Lateral (Generic) (Exam End: 06/07/2024 7:03 AM) Result Value WORKSTATION ID [id number] Impression Biventricular ICD leads intact and in [...] who have questions please contact the health child care aide that requested your imaging first. : Limited echo performed by fellow guard immigration to assess LV function. Left ventricle is [...] Infusions: heparin (porcine) infusion 1,400 Units/hr (06/10/24 9926) PRN Meds:.insulin lispro, glucose 40% oral geL [...] ischemic cardiomyopathy with HFrEF (~30% EF), prior [place] with stents, DM type 2, HTN, HLD, [...] CODE Dain Colón MD Cardiology, M1-S2, Pager #[phone] 06/11/24 Associated attestation - Ethel Carrillo MD [...] (abstinent since admission), ASCVD with multiple prior [place] and PCIs, ICM/HFrEF LVEF 30% (all territories [...] Ethel Carrillo MD Cardiovascular Medicine Personal Pager [phone] 06/11/2024 9:35 PM * Chana Bellecole Lyn - 06/10/2024 12:39 PM EST Nutrition Services Note George Mehta is a 69 y.o. male Reason for intervention: hospital day 9 Nutrition Plan: Continue diet order: 60/60/75 CHO Level 2 Encourage good PO Lasix and Insulin noted Monitor weight Patient scheduled for a hospital day 9 nutrition evaluation. Wood Stock Blank Handler attempted to meet with pt at bedside [...] unless consulted in the interim. Hilary Belle Sheet Metal Work Furnace Installer * Mariia Montero RN - 06/10/2024 12:23 PM EST I have met with the patient to: discuss discharge planning needs. provide the [facility], Office of Care Management letter from the Manager Salt pertaining to rehab referrals. provide a letter describing our affiliations within the [facility] and educate about their right to choose where referrals are sent. provide a list of Home Health Agencies / Durable Medical Equipment vendors which serve their preferred geographic area. provided patient with CMS Star Quality Rating handout. They have requested referrals to: [facility]. [address] [place] [id number] RN / PT Anticipated d/c date: 06/20/24 Note routed to a Telecom Manager who will communicate referrals to facilities and provide any required information. * Dain Colón MD - 06/10/2024 7:17 AM EST Images from the original note were not included. . Cardiology Progress Note Patient info: Name: George Mehta : 1955 PCP: Mauro Berumen MD PCP phone number: [phone] Date of Admission: 06/02/2024 ( Hospital Day 8 days ) Attending:Melida Valdes MD ID: 69 y.o. male with a h/o DM type 2, HTN, HLD, current smoker (2-3 cigarettes/day), HFrEF with anICD for low EF (~30%), and CAD with prior [place] x3 with JENNA placed in [place], Melanoma, PAD, presented to [facility] with 1 hour of retrosternal CP (05/13) while watching TV, found to have STEMI. Active Problems: Active Hospital Problems Diagnosis STEMI (ST elevation myocardial infarction) Cardiac resynchronization therapy defibrillator (SOIL TECHNICIAN-D) - Medtronic Amplia Cardiomyopathy, ischemic Acute on chronic heart failure with reduced ejection fraction (HFrEF, <= 40%) Coronary artery disease involving blue lake coronary artery of blue lake heart without angina pectoris Type 2 diabetes [...] in the last 7068 hours. Invalid input(s): [id number] Recent Labs 06/10/24 0423 06/10/24 0005 06/09/24 2036 06/09/24 1727 06/09/24 1152 06/09/24 0810 06/09/24 0440 06/09/24 0034 06/08/24 2027 06/08/24 1616 06/08/24 1235 06/08/24 0810 POCGLU 154 125 197 174 211* 209* 131 186 176 159 226* 190 Heme No results for input(s): LDH, HAPTOGLOBIN, URICACID in the last 168 hours. ABG (Arterial Blood Gas) No results found for: PHART, PO2ART, SAY9DWV, INT5UEK Microbiology: Microbiology Results (Last 30 days) No results found for the last 720 hours. Imaging: Results for orders placed or performed during the hospital encounter of 06/02/24 XR Chest One View (Exam End: 06/03/2024 2:41 AM) Result Value WORKSTATION ID [id number] Impression No radiographically evident acute cardiopulmonary process. Thank you for letting us participate in the care of this patient. If you are a health care provider and have any questions regarding this report, please contact the number below. For patients who have questions please contact the health child care aide that requested your imaging first. Cardiac Morphology Function wwo Contrast (Exam End: 06/07/2024 1:10 PM) Result Value WORKSTATION ID [id number] Impression - Findings consistent with an ischemic [...] - Mildly dilated left ventricle size with dosjuplz-nk-bvigyled decreased LV systolic function. LV ejection fraction [...] who have questions please contact the health child care aide that requested your imaging first. Chest wo Contrast (Generic) (Exam End: 06/03/2024 4:33 PM) Result Value WORKSTATION ID [id number] Impression Cardiomegaly. Biventricular ICD leads in place. Thank you for letting us participate in the care of this patient. If you are a health care provider and have any questions regarding this report, please contact the number below. For patients who have questions please contact the health child care aide that requested your imaging first. Chest PA & Lateral (Generic) (Exam End: 06/07/2024 7:03 AM) Result Value WORKSTATION ID [id number] Impression Biventricular ICD leads intact and in [...] who have questions please contact the health child care aide that requested your imaging first. : Limited echo performed by fellow guard immigration to assess LV function. Left ventricle is [...] ischemic cardiomyopathy with HFrEF (~30% EF), prior NJ with stents, DM type 2, HTN, HLD, [...] on placing this weekend and transfer to [facility], likely Friday. #ASCVD / STEMI: -Holding Plavix; continue ASA and heparin gtt. -Consult CT surgery for potential open revascularization. -Monitor telmetry -TTE -Viability planning per CT surgery - CT chest (complete) - Carotid duplex bilat (complete) - Cardiac MR (scheduled today Kumar 11/4) - Will need balloon pump prior to [...] None GI PPx: Diet: Carb Control diet //75 CHO counting level 2 Lines: PIV 06/02/24 2200 20 gauge cephalic vein (lateral side of arm), right (Active) Number of days: 7 Code status: FULL CODE Dain Colón MD Cardiology, M1-S2, Pager #[phone] 06/10/24 Associated attestation - Melida Valdes MD [...] a lytic and brought directly to the Professional Fee Coder. Cardiac catheterization demonstrated multivessel disease with severe [...] who is agreeable Melida Valdes MD Staff Marine Engine Machinist Apprentice * Cherelle Fregoso, JOSÉ ANTONIO - 06/09/2024 [...] ischemic cardiomyopathy with HFrEF (~30% EF), prior NJ with stents, DM type 2, HTN, HLD, [...] PCP: Mauro Berumen MD PCP phone number: [phone] Date of Admission: 06/02/2024 ( Hospital Day 7 days ) Attending:Melida Valdes MD ID: 69 y.o. male with a h/o DM type 2, HTN, HLD, current smoker (2-3 cigarettes/day), HFrEF with anICD for low EF (~30%), and CAD with prior [place] x3 with JENNA placed in [place], Melanoma, PAD, presented to [facility] with 1 hour of retrosternal CP (05/13) while watching TV, found to have STEMI. Active Problems: Active Hospital Problems Diagnosis STEMI (ST elevation myocardial infarction) Acute on chronic heart failure with reduced ejection fraction (HFrEF, <= 40%) Coronary artery disease involving blue lake coronary artery of blue lake heart without angina pectoris Type 2 diabetes [...] in the last 7068 hours. Invalid input(s): [id number] Recent Labs 06/09/24 0440 06/09/24 0034 06/08/24 2027 06/08/24 1616 06/08/24 1235 06/08/24 0810 06/08/24 0409 06/07/24 2357 06/07/24 2005 06/07/24 1631 06/07/24 1105 06/07/24 1103 POCGLU 131 186 176 159 226* 190 151 188 118 174 221* 250* Heme No results for input(s): LDH, HAPTOGLOBIN, URICACID in the last 168 hours. ABG (Arterial Blood Gas) No results found for: PHART, PO2ART, UZY9LKJ, PNF1FQK Microbiology: Microbiology Results (Last 30 days) No results found for the last 720 hours. Imaging: Results for orders placed or performed during the hospital encounter of 06/02/24 XR Chest One View (Exam End: 06/03/2024 2:41 AM) Result Value WORKSTATION ID [id number] Impression No radiographically evident acute cardiopulmonary process. Thank you for letting us participate in the care of this patient. If you are a health care provider and have any questions regarding this report, please contact the number below. For patients who have questions please contact the health child care aide that requested your imaging first. Cardiac Morphology Function wwo Contrast (Exam End: 06/07/2024 1:10 PM) Result Value WORKSTATION ID [id number] Impression - Findings consistent with an ischemic [...] - Mildly dilated left ventricle size with gtjcmaxq-gw-zrxvozic decreased LV systolic function. LV ejection fraction [...] who have questions please contact the health child care aide that requested your imaging first. Chest wo Contrast (Generic) (Exam End: 06/03/2024 4:33 PM) Result Value WORKSTATION ID [id number] Impression Cardiomegaly. Biventricular ICD leads in place. Thank you for letting us participate in the care of this patient. If you are a health care provider and have any questions regarding this report, please contact the number below. For patients who have questions please contact the health child care aide that requested your imaging first. Chest PA & Lateral (Generic) (Exam End: 06/07/2024 7:03 AM) Result Value WORKSTATION ID [id number] Impression Biventricular ICD leads intact and in [...] who have questions please contact the health child care aide that requested your imaging first. : Limited echo performed by fellow guard immigration to assess LV function. Left ventricle is [...] Infusions: heparin (porcine) infusion 1,400 Units/hr (06/08/24 1721) PRN Meds:.glucose 40% oral geL OR dextrose [...] ischemic cardiomyopathy with HFrEF (~30% EF), prior [place] with stents, DM type 2, HTN, HLD, [...] None GI PPx: Diet: Carb Control diet 60// CHO counting level 2 Lines: PIV 06/02/24 2200 20 gauge cephalic vein (lateral side of arm), right (Active) Number of days: 6 Code status: FULL CODE Dain Colón MD Cardiology, M1-S2, Pager #[phone] 06/09/24 Associated attestation - Melida Valdes MD [...] a lytic and brought directly to the Professional Fee Coder. Cardiac catheterization demonstrated multivessel disease with severe [...] ven low EF. Melida Valdes MD Staff Marine Engine Machinist Apprentice * Alejandra Baumann, BRIAR CUTTER - 06/08/2024 4:10 PM EST Images from [...] ischemic cardiomyopathy with HFrEF (~30% EF), prior [place] with stents, DM type 2, HTN, HLD, [...] to optimize glucose control Alejandra Baumann APRN [facility] [place] Endocrinology Diabetes Management Pager [phone] Weekends please page [phone] 35 minutes were spent over the course [...] PCP: Mauro Berumen MD PCP phone number: [phone] Date of Admission: 06/02/2024 ( Hospital Day 6 days ) Attending:Melida Valdes MD ID: 69 y.o. male with a h/o DM type 2, HTN, HLD, current smoker (2-3 cigarettes/day), HFrEF with anICD for low EF (~30%), and CAD with prior [place] x3 with JENNA placed in [place], Melanoma, PAD, presented to [facility] with 1 hour of retrosternal CP (05/13) while watching TV, found to have STEMI. Active Problems: Active Hospital Problems Diagnosis STEMI (ST elevation myocardial infarction) Acute on chronic heart failure with reduced ejection fraction (HFrEF, <= 40%) Coronary artery disease involving blue lake coronary artery of blue lake heart without angina pectoris Type 2 diabetes [...] Labs 06/08/24 0321 06/07/24 0241 06/06/24 0333 06/05/2434306/04/24437 WBC 9.92* 10.06* 9.81* 10.83* 11.45* HGB 15.1 14.8 14.6 15.3 16.0 HCT 46.7 46.2 45.4 46.8 49.6* PLATELET 203 202 199 219 222 MCV 91.7 92.0 92.5 92.3 92.7 Recent Labs 06/08/24 0321 06/07/24 1722 06/07/24 0944 06/07/24 0241 06/06/24 1437 06/06/24 1017 06/06/24 0333 06/05/24 0904 06/05/244 06/04/24 1041 06/04/2443706/03/24212 NA 135 -- -- [...] in the last 7068 hours. Invalid input(s): [id number] Recent Labs 06/08/24 0409 06/07/24 2357 06/07/24200406/07/24 1631 06/07/24 1105 06/07/24 1103 06/07/24 0745 06/07/24 0425 06/07/24 0008 06/06/24201706/06/24 1539 06/06/24 1339 POCGLU 151 188 118 174 221* 250* 175 127 182 143 147 317* Heme No results for input(s): LDH, HAPTOGLOBIN, URICACID in the last 168 hours. ABG (Arterial Blood Gas) No results found for: PHART, PO2ART, DSD6VAN, IDL7PTD Microbiology: Microbiology Results (Last 30 days) No results found for the last 720 hours. Imaging: Results for orders placed or performed during the hospital encounter of 06/02/24 XR Chest One View (Exam End: 06/03/2024 2:41 AM) Result Value WORKSTATION ID [id number] Impression No radiographically evident acute cardiopulmonary process. Thank you for letting us participate in the care of this patient. If you are a health care provider and have any questions regarding this report, please contact the number below. For patients who have questions please contact the health child care aide that requested your imaging first. Cardiac Morphology Function wwo Contrast (Exam End: 06/07/2024 1:10 PM) Result Value WORKSTATION ID [id number] Impression - Findings consistent with an ischemic [...] - Mildly dilated left ventricle size with uaewjhuw-aq-vkdgzuqf decreased LV systolic function. LV ejection fraction [...] who have questions please contact the health child care aide that requested your imaging first. Chest wo Contrast (Generic) (Exam End: 06/03/2024 4:33 PM) Result Value WORKSTATION ID [id number] Impression Cardiomegaly. Biventricular ICD leads in place. Thank you for letting us participate in the care of this patient. If you are a health care provider and have any questions regarding this report, please contact the number below. For patients who have questions please contact the health child care aide that requested your imaging first. Chest PA & Lateral (Generic) (Exam End: 06/07/2024 7:03 AM) Result Value WORKSTATION ID [id number] Impression Biventricular ICD leads intact and in [...] who have questions please contact the health child care aide that requested your imaging first. : Limited echo performed by fellow guard immigration to assess LV function. Left ventricle is [...] Infusions: heparin (porcine) infusion 1,400 Units/hr (06/08/24 1469) PRN Meds:.insulin lispro, potassium chloride ER OR [...] ischemic cardiomyopathy with HFrEF (~30% EF), prior [place] with stents, DM type 2, HTN, HLD, [...] CODE Dain Colón MD Cardiology, M1-S2, Pager #[phone] 06/08/24 Associated attestation - Melida Valdes MD [...] a lytic and brought directly to the Professional Fee Coder. Cardiac catheterization demonstrated multivessel disease with severe [...] Otherwise clinically stable Melida Valdes MD Staff Marine Engine Machinist Apprentice * Ross Manuel PA - 06/07/2024 12:00 PM EST Cardiac Electrophysiology CIED Interrogation/Programming Note Asked by MRI staff to evaluate and program Medtronic SOIL TECHNICIAN-D to allow for MR imaging. Patient Active Problem List Diagnosis ','STEMI (ST elevation myocardial infarction) Acute on chronic heart failure with reduced ejection fraction (HFrEF, <= 40%) Coronary artery disease involving blue lake coronary artery of blue lake heart without angina pectoris Type 2 diabetes mellitus Device Data: Medtronic Amplia MRI Quad SOIL TECHNICIAN-D [id number] #[id number] 06/16/2019 RA Medtronic 4076 CapSureFix Novus [id number] 06/16/2019 RV Medtronic [id number] [id number] 06/16/2019 LV Medtronic 4298 Attain Performa MRI [id number] 06/16/2019 DDD @ 50/130/130 Adaptive Bi-V and LV VF >188bpm ATP, 35j x6 FVT >188-222bpm burst 2, 35jx5 VT Battery longevity: 2.5yrs; charge time 4s P wave: 2.3mV R wave: >20.0mV Atrial impedance: 458 ohms RV impedance: 646 ohms LV impedance: 722 ohms Atrial threshold: 0.5V @ 0.4ms RV threshold: LV threshold: 1.75V @ 0.4ms AP 0.2% WASH TEST CHECKER 97.7% AT/AF 0% Impression and Plan: 1. Interrogated device to determine suitability for MRI 2. Programmed to MRI safe mode - VOO @ 70 3. Scan performed 4. Programming restored to baseline settings 5. Reinterrogated to verify appropriate function and settings 6. Device follow up as previously scheduled Provider: HENOK Meyer EP Consult attending physician: Libby Barton MD EP Consult positional pager #[phone](EPMD) EP Device interrogation positional pager # [phone] * Dain Colón MD - 06/07/2024 7:09 AM EST Images from the original note were not included. . Cardiology Progress Note Patient info: Name: George Mehta : 1955 PCP: Mauro Berumen MD PCP phone number: [phone] Date of Admission: 06/02/2024 ( Hospital Day 5 days ) Attending:Melida Valdes MD ID: 69 y.o. male with a h/o DM type 2, HTN, HLD, current smoker (2-3 cigarettes/day), HFrEF with anICD for low EF (~30%), and CAD with prior [place] x3 with JENNA placed in [place], Melanoma, PAD, presented to [facility] with 1 hour of retrosternal CP (05/13) while watching TV, found to have STEMI. Active Problems: Active Hospital Problems Diagnosis STEMI (ST elevation myocardial infarction) Acute on chronic heart failure with reduced ejection fraction (HFrEF, <= 40%) Coronary artery disease involving blue lake coronary artery of blue lake heart without angina pectoris Type 2 diabetes [...] 06/06/24 0333 06/05/24 0344 06/04/24 0438 06/03/24 021 WBC 10.06* 9.81* 10.83* 11.45* 11.16* HGB [...] in the last 7068 hours. Invalid input(s): [id number] Recent Labs 06/07/24 0425 06/07/24 0008 06/06/24 2018 06/06/24 1539 06/06/24 1339 06/06/24 1134 06/06/24 0757 06/06/24 0653 06/05/24 2231 06/05/24 1622 06/05/24 1134 06/05/24 0727 POCGLU 127 182 143 147 317* 264* 195 187 238* 205* 211* 166 Heme No results for input(s): LDH, HAPTOGLOBIN, URICACID in the last 168 hours. ABG (Arterial Blood Gas) No results found for: PHART, PO2ART, WTA7GBR, HIM7XEL Microbiology: Microbiology Results (Last 30 days) No results found for the last 720 hours. Imaging: Results for orders placed or performed during the hospital encounter of 06/02/24 XR Chest One View (Exam End: 06/03/2024 2:41 AM) Result Value WORKSTATION ID [id number] Impression No radiographically evident acute cardiopulmonary process. Thank you for letting us participate in the care of this patient. If you are a health care provider and have any questions regarding this report, please contact the number below. For patients who have questions please contact the health child care aide that requested your imaging first. Chest wo Contrast (Generic) (Exam End: 06/03/2024 4:33 PM) Result Value WORKSTATION ID [id number] Impression Cardiomegaly. Biventricular ICD leads in place. Thank you for letting us participate in the care of this patient. If you are a health care provider and have any questions regarding this report, please contact the number below. For patients who have questions please contact the health child care aide that requested your imaging first. : Limited echo performed by fellow guard immigration to assess LV function. Left ventricle is [...] Infusions: heparin (porcine) infusion 1,400 Units/hr (06/06/24 5148) PRN Meds:.insulin lispro, potassium chloride ER OR [...] ischemic cardiomyopathy with HFrEF (~30% EF), prior NJ with stents, DM type 2, HTN, HLD, [...] Dain Colón MD (PGY-1) Cardiology, M1-S2, Pager #[phone] 06/07/24 Associated attestation - Melida Valdes MD [...] a lytic and brought directly to the Professional Fee Coder. Cardiac catheterization demonstrated multivessel disease with severe [...] for further guidance. Melida Valdes MD Staff Marine Engine Machinist Apprentice * Dain Colón MD - 06/06/2024 7:17 AM EST Images from the original note were not included. . Cardiology Progress Note Patient info: Name: George Mehta : 1955 PCP: Mauro Berumen MD PCP phone number: [phone] Date of Admission: 06/02/2024 ( Hospital Day 4 days ) Attending:Melida Valdes MD ID: 69 y.o. male with a h/o DM type 2, HTN, HLD, current smoker (2-3 cigarettes/day), HFrEF with anICD for low EF (~30%), and CAD with prior [place] x3 with JENNA placed in [place], Melanoma, PAD, presented to [facility] with 1 hour of retrosternal CP (05/13) while watching TV, found to have STEMI. Active Problems: Active Hospital Problems Diagnosis STEMI (ST elevation myocardial infarction) Acute on chronic heart failure with reduced ejection fraction (HFrEF, <= 40%) Coronary artery disease involving [place] coronary artery of [place] heart without angina pectoris Type 2 diabetes [...] in the last 7068 hours. Invalid input(s): [id number] Recent Labs 06/06/24 0653 06/05/24 2231 06/05/24 1622 06/05/24 1134 06/05/24 0727 06/04/24 1943 06/04/24 1526 06/04/24 1109 06/04/24 0711 06/03/24 2005 06/03/24 1748 06/03/24 1114 POCGLU 187 238* 205* 211* 166 175 154 188 182 136 191 166 Heme No results for input(s): LDH, HAPTOGLOBIN, URICACID in the last 168 hours. ABG (Arterial Blood Gas) No results found for: PHART, PO2ART, YJV0CFY, HOQ5ZCL Microbiology: Microbiology Results (Last 30 days) No results found for the last 720 hours. Imaging: Results for orders placed or performed during the hospital encounter of 06/02/24 XR Chest One View (Exam End: 06/03/2024 2:41 AM) Result Value WORKSTATION ID [id number] Impression No radiographically evident acute cardiopulmonary process. Thank you for letting us participate in the care of this patient. If you are a health care provider and have any questions regarding this report, please contact the number below. For patients who have questions please contact the health child care aide that requested your imaging first. Chest wo Contrast (Generic) (Exam End: 06/03/2024 4:33 PM) Result Value WORKSTATION ID [id number] Impression Cardiomegaly. Biventricular ICD leads in place. Thank you for letting us participate in the care of this patient. If you are a health care provider and have any questions regarding this report, please contact the number below. For patients who have questions please contact the health child care aide that requested your imaging first. : Limited echo performed by fellow guard immigration to assess LV function. Left ventricle is [...] Infusions: heparin (porcine) infusion 1,400 Units/hr (06/06/24 2137) PRN Meds:.potassium chloride ER OR potassium chloride ER, sodium chloride 0.9 % (flush), lidocaine, nitroGLYcerin, atropine, heparin (porcine) infusion AND heparin (porcine), glucose 40% oralgeL OR dextrose OR glucagon Outpatient Medications No current outpatient medications Assessment & Plan: 69 y.o. male with CAD, ischemic cardiomyopathy with HFrEF (~30% EF), prior NJ with stents, DM type 2, HTN, HLD, [...] Dain Colón MD (PGY-1) Cardiology, M1-S2, Pager #[phone] 06/06/24 Associated attestation - Melida Valdes MD [...] a lytic and brought directly to the Professional Fee Coder. Cardiac catheterization demonstrated multivessel disease with severe [...] management. Help appreciated Melida Valdes MD Staff Marine Engine Machinist Apprentice * Frederick Dunn MD - 06/05/2024 8:13 AM EDT Images from the original note were not included. . Cardiology Progress Note Patient info: Name: George Mehta : 1955 PCP: Mauro Berumen MD PCP phone number: [phone] Date of Admission: 06/02/2024 ( Hospital Day 3 days ) Attending:Melida Valdes MD ID: 69 y.o. male with a h/o DM type 2, HTN, HLD, current smoker (2-3 cigarettes/day), HFrEF with anICD for low EF (~30%), and CAD with prior [place] x3 with JENNA placed in [place], Melanoma, PAD, presented to [facility] with 1 hour of retrosternal CP (05/13) [...] 0-->no symptoms 06/03/24 0400 Labs: Recent Labs 06/05/24 03406/04/2443706/03/24212 WBC 10.83* 11.45* 11.16* HGB 15.3 16.0 15.0 HCT 46.8 49.6* 47.4 PLATELET 219 222 217 MCV 92.3 92.7 93.1 Recent Labs 06/05/24 0904 06/05/24 0344 06/04/24 2234 06/04/24 1635 06/04/24 1041 06/04/24 0438 06/03/24 0213 NA -- 136 -- -- -- 137 [...] in the last 7068 hours. Invalid input(s): [id number] Recent Labs 06/05/24 1134 06/05/24 0727 06/04/24 1943 06/04/24 1526 06/04/24 1109 06/04/24 0711 06/03/24 2005 06/03/24 1748 06/03/24 1114 06/03/24 0754 06/02/24 2331 POCGLU 211* 166 175 154 188 182 136 191 166 195 156 Heme No results for input(s): LDH, HAPTOGLOBIN, URICACID in the last 168 hours. ABG (Arterial Blood Gas) No results found for: PHART, PO2ART, TAT0AOK, EOT1QJZ Microbiology: Microbiology Results (Last 30 days) No results found for the last 720 hours. Imaging: Results for orders placed or performed during the hospital encounter of 06/02/24 XR Chest One View (Exam End: 06/03/2024 2:41 AM) Result Value WORKSTATION ID [id number] Impression No radiographically evident acute cardiopulmonary process. Thank you for letting us participate in the care of this patient. If you are a health care provider and have any questions regarding this report, please contact the number below. For patients who have questions please contact the health child care aide that requested your imaging first. Chest wo Contrast (Generic) (Exam End: 06/03/2024 4:33 PM) Result Value WORKSTATION ID [id number] Impression Cardiomegaly. Biventricular ICD leads in place. Thank you for letting us participate in the care of this patient. If you are a health care provider and have any questions regarding this report, please contact the number below. For patients who have questions please contact the health child care aide that requested your imaging first. : Limited echo performed by fellow guard immigration to assess LV function. Left ventricle is [...] ischemic cardiomyopathy with HFrEF (~30% EF), prior [place] with stents, DM type 2, HTN, HLD, [...] all the information they need regarding the SOIL TECHNICIAN-D.Plan for MRI tomorrow. Starting 40 mg [...] None GI PPx: Diet: Carb Control diet / CHO counting level 2 Lines: PIV 06/02/24 [...] a lytic and brought directly to the Professional Fee Coder. Cardiac catheterization demonstrated multivessel disease with severe [...] maintenance of 40. Melida Valdes MD Staff Marine Engine Machinist Apprentice * Migel Javier RN - 06/05/2024 6:21 AM EDT Implanted device record scanned into: Chart Review-->Media-->External Cardiology-->03/25/2024. Medtronic TARGET BRAZILia MRI Quad CRTD [id number] Serial #: [id number] DDD mode A + Bi/V Rates 50-130 Migel Javier RN * Dain Colón MD - 06/04/2024 11:16 AM EDT Implant Records Requested Type: SOIL TECHNICIAN-D Process Manager: Medtronic Product: [id number] Amplia MRI MRI compatibility: Compatible for 1.5-3 T Model #: [id number] Placed at: [place], [place] Records requested for MRI: 1. Operative report 2. Implant log I requested that these records be sent to our MRI department, Dain Colón MD 06/04/24 11:58 AM * Dain Colón MD - 06/04/2024 6:57 AM EDT Images from the original note were not included. . Cardiology Progress Note Patient info: Name: George Mehta : 1955 PCP: Mauro Berumen MD PCP phone number: [phone] Date of Admission: 06/02/2024 ( Hospital Day 2 days ) Attending:Delroy Fofana MD ID: 69 y.o. male with a h/o DM type 2, HTN, HLD, current smoker (2-3 cigarettes/day), HFrEF with anICD for low EF (~30%), and CAD with prior [place] x3 with JENNA placed in [place], Melanoma, PAD, presented to [facility] with 1 hour of retrosternal CP (05/13) [...] in the last 7068 hours. Invalid input(s): [id number] Recent Labs 06/03/24 2005 06/03/24 1748 06/03/24 1114 06/03/24 0754 06/02/24 2331 POCGLU 136 191 166 195 156 Heme No results for input(s): LDH, HAPTOGLOBIN, URICACID in the last 168 hours. ABG (Arterial Blood Gas) No results found for: PHART, PO2ART, KHD2OUR, IYW0GRU Microbiology: Microbiology Results (Last 30 days) No results found for the last 720 hours. Imaging: Results for orders placed or performed during the hospital encounter of 06/02/24 XR Chest One View (Exam End: 06/03/2024 2:41 AM) Result Value WORKSTATION ID [id number] Impression No radiographically evident acute cardiopulmonary process. Thank you for letting us participate in the care of this patient. If you are a health care provider and have any questions regarding this report, please contact the number below. For patients who have questions please contact the health child care aide that requested your imaging first. Chest wo Contrast (Generic) (Exam End: 06/03/2024 4:33 PM) Result Value WORKSTATION ID [id number] Impression Cardiomegaly. Biventricular ICD leads in place. Thank you for letting us participate in the care of this patient. If you are a health care provider and have any questions regarding this report, please contact the number below. For patients who have questions please contact the health child care aide that requested your imaging first. : Limited echo performed by fellow guard immigration to assess LV function. Left ventricle is [...] ischemic cardiomyopathy with HFrEF (~30% EF), prior [place] with stents, DM type 2, HTN, HLD, [...] -Lasix 40 mg IV given in the labview programmer; assess diuretic response, consider re-dosing -Continue carvedilol; [...] (Active) Number of days: 1 Code status: @MIRIAMTATUS@ Dain Colón MD (PGY-1) Cardiology M1-S2, #[id number] [...] a lytic and brought directly to the Professional Fee Coder. Cardiac catheterization demonstrated multivessel disease with severe [...] -MRI with viability on Friday -Diuresis with Lasix Melida Valdes MD Staff Marine Engine Machinist Apprentice * Fatmata Mcallister PT - 06/03/2024 3:29 [...] vs PCI) Fatmata Mcallister PT, MSPT Pager [phone] Inpatient Physical Therapy * Marlin Gómez MD [...] Marlin Gómez MD Cardiology S2, Pager # [phone] 06/03/2024 * Delroy Fofana MD - 06/03/2024 7:16 AM EDT Images from the original note were not included. . Cardiology Progress Note Patient info: Name: George Mehta : 1955 PCP: Mauro Berumen MD PCP phone number: [phone] Date of Admission: 06/02/2024 ( Hospital Day 1 day ) Attending:Nuha Rojo MD ID: 69 y.o. male with a h/o DM type 2, HTN, HLD, current smoker (2-3 cigarettes/day), HFrEF with anICD for low EF (~30%), and CAD with prior [place] x3 with JENNA placed in [place], Melanoma, PAD, presented to [facility] with 1 hour of retrosternal CP (05/13) [...] in the last 7068 hours. Invalid input(s): [id number] Recent Labs 06/02/24 2331 POCGLU 156 Heme No results for input(s): LDH, HAPTOGLOBIN, URICACID in the last 168 hours. ABG (Arterial Blood Gas) No results found for: PHART, PO2ART, WQS8GNO, GPV4BSQ Microbiology: Microbiology Results (Last 30 days) No results found for the last 720 hours. Imaging: Results for orders placed or performed during the hospital encounter of 06/02/24 XR Chest One View (Exam End: 06/03/2024 2:41 AM) Result Value WORKSTATION ID [id number] Impression No radiographically evident acute cardiopulmonary process. Thank you for letting us participate in the care of this patient. If you are a health care provider and have any questions regarding this report, please contact the number below. For patients who have questions please contact the health child care aide that requested your imaging first. : Limited echo performed by fellow guard immigration to assess LV function. Left ventricle is [...] ischemic cardiomyopathy with HFrEF (~30% EF), prior NJ with stents, DM type 2, HTN, HLD, [...] -Lasix 40 mg IV given in the labview programmer; assess diuretic response, consider re-dosing -Continue carvedilol; [...] of care per Dain Colón MD (medical services coordinator). Please refer to his note above for details. Very pleasant 69 year old male but he is obese, diabetic, and he is a SMOKER with known prior CAD and moderately reduced LVEF (30%). He has a pacer. History of surgical resection of melanoma on his head. The patient was transferred overnight to [facility] as a STEMI. He was treated initially with a lytic (TNK) and brought directly to the labview programmer. The cath demonstrated 3VD with diffuse disease [...] - 06/13/2024 10:58 AM EST ICU Blue (#[id number]) H&P Patient info: Name: George Mehta : 1955 PCP: Mauro Berumen MD PCP phone number: [phone] Date of Admission: 06/02/2024 ( Hospital Day 11 days ) Attending:Haja Byrnes MD ID: George Mehta is a 69 y.o. male with a h/o DM type 2, HTN, HLD, current smoker (2-3 cigarettes/day), HFrEF with an ICD for low EF (~30%), and CAD with prior [place] x3 with JENNA placed in [place], Melanoma, PAD, presented to [facility] with 1 hour of retrosternal CP (05/13) while watching TV, foundto have STEMI. HPI: Shahnaz Scanlon H&P 06/02 69 y.o. male with a h/o DM type 2, HTN, HLD, current smoker (2-3 cigarettes/day), HFrEF with an ICD for low EF (~30%), and CAD with prior [place] x3 with JENNA placed in [place], Melanoma, PAD, presented to [facility] with 1 hour of retrosternal CP (05/13) while watching TV. CP was non-radiating, not asso ciated with diaphoresis, nausea, or SOB. Denies orthopnea, MARTÍNEZ, palpitations, or LE edema. ECG showed findings consistent with anterior STEMI. He received TNK and was transferred for PCI. Coronary angiography showed a small, non-dominant RCA with gttu-hr-wqhnksss disease and a dominant,heavily calcified left system with prior stents in the LAD and OM. The LM bifurcates into the LAD and LCX, both heavily calcified. The proximal LCX has a 75% calcified, aneurysmal lesion, and an 80% calcified lesion distally before a large OM2. OM1 is a UI LEAD DEVELOPER with in-stent restenosis, filling retrograde via collaterals. [...] 40 mg Lasix was administered in the labview programmer. Cardiac surgery was consulted and plan for [...] Blood Gas) No results for input(s): PHART, DML9QAX, PO2ART, TVB4QKG, LACTATEVEN, PZY1IDJ, PFRATIOART2 in the last 168 hours. VBG (Venous Blood Gas) Recent Labs 06/10/24 1742 PHVEN 7.34 PO2VEN 24 PUY4DYM 27.4 Mixed Venous Sat No results for input(s): A2WRAO8 in the last 168 hours. Intake/Output Summary [...] 06/13/24822 Site Preparation/Maintenance dressing: dry and intact 06/13/24799 Securement catheter stabilization device, secured with 06/13/24822 Patency/Maintenance infusing 06/13/24822 Phlebitis 0-->no symptoms 06/13/24939 Infiltration 0-->no symptoms 06/13/24939 Site Signs/Symptoms no redness;no swelling;no pain;no warmth;no palpable cord;no streak formation 11/06/24 0815 LDA Cath/EP Sheath 06/13/24 Proximal;Right;Anterior Femoral [...] in the last 7068 hours. Invalid input(s): [id number] Recent Labs 06/13/24 0741 06/13/24 0325 06/12/24 2353 06/12/24 1932 06/12/24 1541 06/12/24 1121 06/12/24 0800 06/12/24 0425 06/11/24 2356 06/11/24 2025 06/11/24 1624 06/11/24 1108 POCGLU 126 99 141 158 113 207* 169 132 135 210* 81 233* Heme No results for input(s): LDH, HAPTOGLOBIN, URICACID in the last 168 hours. ABG (Arterial Blood Gas) No results for input(s): PHART, ZMQ2BJT, PO2ART, HHK2RLX, LACTATEVEN, FKA8FTX, PFRATIOART2 in the last 168 hours. VBG (Venous Blood Gas) Recent Labs 06/10/24 1742 PHVEN 7.34 PO2VEN 24 BZJ3PAN 27.4 Mixed Venous Sat No results for input(s): B6FWLK5 in the last 168 hours. Microbiology: Microbiology Results (Last 30 days) No results found for the last 720 hours. Assessment & Plan: George Mehta is a 69 y.o. male with CAD, ischemic cardiomyopathy with HFrEF (~30% EF), prior [place] with stents, DM type 2, HTN, HLD, [...] Plan for CABG 06/14. Patient NPO at [place]. #ASCVD / STEMI: -Holding Plavix; continue ASA [...] (Give Meds) Daily Healthy Menu Choices/Cardiac diet ([facility]-Diet) DVT Prophylaxis: SCD GI [...] TUD (abstinent since admission), ASCVD with multipleprior NJ and PCIs, ICM/HFrEF LVEF 30% (all territories [...] is in the chart Rebeca Prado MD Executive Housekeeper PGY6 [id number] * Shahnaz Scanlon MD - [...] low EF (~30%), and CAD with prior [place] x3 with JENNA placed in [facility], presented to [facility] with 1 hour of retrosternal CP (05/13) while watching TV. CP was non-radiating, not assoc iated with diaphoresis, nausea, or SOB. Denies orthopnea, MARTÍNEZ, palpitations, or LE edema. ECG showed findings consistent with anterior STEMI. He received TNK and was transferred for PCI. Coronary angiography showed a small, non-dominant RCA with nqnj-fh-egbjxcit disease and a dominant,heavily calcified left system with prior stents in the LAD and OM. The LM bifurcates into the LAD and LCX, both heavily calcified. The proximal LCX has a 75% calcified, aneurysmal lesion, and an 80% calcified lesion distally before a large OM2. OM1 is a UI LEAD DEVELOPER with in-stent restenosis, filling retrograde via collaterals. [...] 40 mg Lasix was administered in the labview programmer. Past Medical History: As per HPI Significant [...] Affect: Mood normal. Behavior: Behavior normal. Diagnostics: [facility] 06/02/2024 Coronary angiography revealed small non [...] ischemic cardiomyopathy with HFrEF (~30% EF), prior NJ with stents, DM type 2, HTN, HLD, [...] -Lasix 40 mg IV given in the labview programmer; assess diuretic response. -Continue carvedilol; hold Entresto [...] & Follow-up Care: Contact information for follow-up [facility] [address] [address] Cardiac Rehab, [address] [address] RN AVILA confirmed with [facility] that they will see [...] with plan. * Plan of Care - Mcihelle Orozco RN - 06/20/2024 6:09 PM EST [...] Roberts RN - 06/18/2024 10:50 AM EST [facility] CARDIAC REHABILITATION George Mehta was seen today regarding participation in the outpatient Phase 2 Cardiac Rehabilitation at [facility]. The patient agrees to a referral to [...] through: Primary Insurance: AAR MANAGED MEDICARE Payor: AARP MANAGED MEDICARE / Plan: S B [facility] MANAGED MEDICARE COMPLETE / Product Type: *No Product type* / Secondary Insurance: N/A Last Physical Therapy Recommendation: (home with ) with to be determined (06/15/24 1028) Plan for discharge is: Home w/ Services Outpatient Agency/Support Group Needs: Homecare agency Agency Choices: [facility]: Medication checks, Registered Nurse, Physical Therapy Agency Referrals: pending clinical course and PT/OT recs [facility] [address] [facility] [address] PHONE: [phone] FAX: [phone] Transportation: family or friend will provide Barriers to discharge: Global: Discharge planning Global Comment: coordination of [facility] services prior to discharge Plan: Patient is not medically ready related to: s/p CABGx3 and MARIALUISA clipping. Plan going forward is: Per the team, the pt is 3 Days Post-Op CABGx3 and MARAILUISA clipping. Cr is down trending per the team (now 1.5); EP interrogated AICD; currently DDD paced; managing pain control; d/c plan pending clinical course and PT/OT recs, but anticipating d/c home with home health services when MR; JAMIE CM will continue to monitor for potential [...] through: Primary Insurance: AAR MANAGED MEDICARE Payor: [facility] MANAGED MEDICARE / Plan: [facility] MANAGED MEDICARE COMPLETE / Product Type: *No Product type* / Secondary Insurance: N/A Plan for discharge is: Home w/ Services Outpatient Agency/Support Group Needs: Homecare agency Agency Choices: [facility]: Medication checks, Registered Nurse, Physical Therapy Agency Referrals: pending clinical course and PT/OT recs [facility] [address] [place] [address] PHONE: [phone] FAX: [phone] Transportation: family or friend will provide Barriers [...] d/c home with home health services when . JAMIE GRAMAJO will continue to monitor for anticipated d/c needs. Anticipated Date of Discharge: 06/19/2024 * Op Note - Bobby Loja MD - 06/14/2024 8:48 AM EST [facility] Operative Note Patient Name: George Mehta : [id number] MR#: [id number] Case Date: 06/14/2024 Surgeon: Surgeons and Role: * Bobby Loja MD - Primary * Rashi Bass PA - Physician Lithograph Designer Preoperative diagnosis: CAD, MARIALUISA flickering mass on [...] procedures today and tomorrow. Report called to [facility] - all belongings with patient. 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 INDIVIDUALIZED FALL [...] No Patient is insured through: Primary Insurance: [facility] MANAGED MEDICARE Payor: AARP MANAGED MEDICARE / Plan: AARP [employer]PPO MANAGED MEDICARE COMPLETE / Product Type: *No Product type* / Secondary Insurance: N/A Plan for discharge is: Home w/ Services Outpatient Agency/Support Group Needs: Homecare agency, Agency Choices: [facility] Home Health Services: Medication checks, Registered Nurse, Physical Therapy Agency Referrals: [facility] [address] [place] [address] RN / PT Routed 06/10 Transportation: family [...] with home health services when medically ready. traveling nurse/Pharmacist In Charge will continue to follow patient???s progress and remain available if situation changes for coordination of care, psychosocial support and/or discharge planning. Anticipated Date of Discharge: 06/18/2024 Mariia Montero RN CM Extension [phone] * Plan of Care - Migel Javier [...] No Patient is insured through: Primary Insurance: [facility] MANAGED MEDICARE Payor: [facility] MANAGED MEDICARE / Plan: [facility] MANAGED MEDICARE COMPLETE / Product [...] consult for high risk PCI vs CABG traveling nurse/Pharmacist In Charge will continue to follow patient???s progress and remain available if situation changes for coordination of care, psychosocial support and/or discharge planning. Anticipated Date of Discharge: 06/11/2024 Mariia Montero RN CM Extension [phone] * Plan of Care - Becca Hope [...] ischemic cardiomyopathy with HFrEF (~30% EF), prior [place] with stents, DM type 2, HTN, HLD, [...] and to provide a review of terminal carman diabetes care. Diabetes History: George Mehta has [...] Breakfast- varies - eggs with khoury or portuguese muffin Lunch- turkey sandwich Supper- meat and [...] Infusions: heparin (porcine) infusion 1,400 Units/hr (06/06/24 4796) PRN: insulin lispro, potassium chloride ER OR [...] ischemic cardiomyopathy with HFrEF (~30% EF), prior [place] with stents, DM type 2, HTN, HLD, [...] Baumann APRN Endocrinology Diabetes Management Service Pager: [phone] Weekends please page [phone] 80 minute visit was spent in counseling [...] mid to high 80's. PLAN MOVING FORWARD: [facility] draws w/ AM labs. Continue with [...] Plan of Care Review 06/05/2024 0632 by Javier, Migel A, RN Outcome: Ongoing (Interventions Implemented as Appropriate) [...] y.o. male with a PMHx of previous [place] s/p PCI x3, ICM/HFrEF (LVEF 30%) s/p ICD, DMII, HTN, HLD, remote melanoma, and smoker who presented to [facility] last night via EMS after developing acute, severe chest pain while watching TV. Patient was ruled in for STEMI, given TNK, ASA, plavix, heparin gtt, and sent to [facility] for coronary angiography. LHC demonstrated severely calcified left coronary system with notable LCx 75/80% lesions and UI LEAD DEVELOPER OM1 with ISR with collateral retrograde filling, [...] elevation myocardial infarction) Past Medical History: previous [place] s/p PCI x3 ICM/HFrEF (LVEF 30%) s/p [...] is large. OM1 appears to be a UI LEAD DEVELOPER, with in stentrestenosis and fills retrograde via [...] y.o. male admitted with STEMI s/p TNK, [facility] showing multivessel CAD including ISR, no [...] Team, bedside nurse, medical record, and Patient WHEAT FARMER Introduced self/reviewed role; services accepted. Admitted From: [...] surrogate would be surrogate decision maker per [place] decision making law. (Only good for 180 days) Any patient receiving care in [place] must abide by [place] law. The hierarchy for surrogate decision making [...] (i) The agent with financial power of disability attorney or a conservator appointed in accordance [...] homeless or living in a halfway (including now)?: No In the past 12 months has the wutabout, gas, oil, or water [employer] threatened to shut off services in your [...] in the bathroom) Home Address confirmed as: [address] [place] [address] [address] [facility] [address] Social & Family Supports: All names listed [...] Pertinent/Service Specific Information: Health/Prescription Coverage: Primary Insurance: AAR MANAGED MEDICARE Payor: AAR MANAGED MEDICARE / Plan: [facility] MANAGED MEDICARE COMPLETE / Product Type: *No Product type* / Secondary Insurance: N/A ; Prescription Coverage: Yes Preferred Pharmacy: [id number] - [facility], [place] - [address] [facility] [address] [facility] [address] [place] Status: Patient is a : No Primary Care Provider confirmed: Mauro Berumen MD [phone] Patient/Caregiver Goals of Treatment: Potential Needs for [...] care as indicated. [facility], [phone]. [phone] * Brief Op Note - Angeles Gaxiola PA - 06/03/2024 12:23 AM EDT Preliminary Cardiac Catheterization Procedure Note: Patient Name: George Mehta : [id number] MR#: [id number] Case Date: 06/02/2024 - 06/03/2024 Farmer General: Surgeons and Role: * Nuha Shen MD - Primary * Angeles Gaxiola PA - Physician Lithograph Designer Preoperative diagnosis: STEMI Postoperative diagnosis: * STEMI * Procedure(s) performed: RRA access [facility] Coronary angiogram IVUS LM/LAD/LCX Access: 6 Fr RRA A time-out was conducted prior to the start of the procedure to verify the correct patient and procedure, procedure location, and all relevant critical information. Preliminary findings: 69 year old current smoker (1-2 cigarette's per day), DM type 2, hypertension, dyslipidemia, ICD for HFrEF/low EF (~30%), CAD with prior [place] and 3 stents historically (in [place]) who presented to [facility] with 1 hour of rest chest pain [...] is large. 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) 06/14/2024 7:34 AM EST CAD Endoscopy W/Video-Asst Vein [place], Cabg ([id number]) 06/14/2024 7:34 AM EST CAD Cabg, Artery-Vein, Two ([id number]) 06/14/2024 7:34 AM EST CAD Cabg, Arterial, Single ([id number]) 06/14/2024 7:34 AM EST CAD TRANSESOPHAGEAL ECHOCARDIOGRAM IN THE OR Routine 06/14/2024 7:20 AM EST Coronary artery disease involving [place] coronary artery of [place] heart without angina pectoris POC, GLUCOSE Routine [...] O RDERABLES [facility] [place] [address] * (ABNORMAL) Basic Metabolic Panel (06/21/2024 2:09 AM EST) Glucose 169 65 - 199 mg/dL 06/21/2024 3:10 AM [facility] Comment:Glucose Concentratio n >=200 mg/dL plus symptoms is consistent with Diabetes Mellitus. Blood Urea Nitrogen 27(H) 10 - 20 mg/dL 06/21/2024 3:10 AM [facility] Creatinine 1.24 0.80 - 1.50 mg/dL 06/21/2024 3:10 AM [facility] Sodium 138 135 - 145 mMol/L 06/21/2024 3:10 AM [facility] Potassium 4.2 3.5 - 5.0 mMol/L 06/21/2024 3:10 AM EST [facility] Chloride 100 98 - [...] mL/min/1. 73 m?? 06/21/2024 3:10 AM EST [facility] APRN CHEMISTRY ORDERABL ES Performing Organization Address City/[facility]/ZIP Co de Phone Number [facility] [place] [address] * POC, GLUCOSE (06/21/2024 12:04 AM EST) [...] O RDERABLES [facility] [place] [address] * POC, GLUCOSE (06/20/2024 11:14 PM EST) Glucometer, POC 67 65 - 199 mg/dL 06/20/2024 11:14 PM EST [facility] Comment:Supplemental ranges: <140 mg/dL before meals <180 mg/dL all other times of the day. Blood CAPILLARY BLOOD / Unknown 06/20/2024 11:14 PM EST 06/20/2024 11:14 PM EST Bobby Loja MD POINT OF CARE TEST O NIKA Performing Organization Address City/[facility] Co de Phone Number [facility] [place] [address] * POC, GLUCOSE (06/20/2024 7:16 PM EST) Glucometer, POC 132 65 - 199 mg/dL 06/20/2024 7:16 PM EST [facility] Comment:Supplemental ranges: <140 mg/dL before meals <180 mg/dL all other times of the day. Blood CAPILLARY BLOOD / Unknown 06/20/2024 7:16 PM EST 06/20/2024 7:16 PM EST Bobby Loja MD POINT OF CARE TEST Abimael MAHER Performing Organization Address [facility] Co de Phone Number [facility] [place] [address] * POC, GLUCOSE (06/20/2024 3:39 PM EST) Glucometer, POC 124 65 - 199 mg/dL 06/20/2024 3:40 PM EST [facility] Comment:Supplemental ranges: <140 mg/dL before meals <180 mg/dL all other times of the day. Blood CAPILLARY BLOOD / Unknown 06/20/2024 3:39 PM EST 06/20/2024 3:40 PM EST Narrative Authorizing Provider Result Saranya Loja MD POINT OF CARE TEST O NIKA Performing Organization Address City/[facility] Co de Phone Number [facility] [place] [address] * POC, GLUCOSE (06/20/2024 12:02 PM EST) Glucometer, POC 173 65 - 199 mg/dL 06/20/2024 12:03 PM EST [facility] Comment:Supplemental ranges: <140 mg/dL before meals <180 mg/dL all other times of the day. Blood CAPILLARY BLOOD / Unknown 06/20/2024 12:02 PM EST 06/20/2024 12:03 PM EST Bobby Loja MD POINT OF CARE TEST O NIKA Performing Organization Address [facility] Co de Phone Number [facility] [place] [address] * POC, GLUCOSE (06/20/2024 7:10 AM EST) Glucometer, POC 130 65 - 199 mg/dL 06/20/2024 7:11 AM [facility] Comment:Supplemental ranges: <140 mg/dL before meals <180 mg/dL all other times of the day. Blood CAPILLARY BLOOD / Unknown 06/20/2024 7:10 AM EST 06/20/2024 7:11 AM EST Bobby Loja MD POINT OF CARE TEST Abimael MAHER Performing Organization Address [facility] de Phone Number [facility] [place] [address] * (ABNORMAL) Basic Metabolic Panel (06/20/2024 2:28 [...] - 10.5 mg/dL 06/20/2024 3:06 AM EST [facility] Est Glomerular Filtration Rate - Male 56 mL/min/1. 73 m?? 06/20/2024 3:06 AM [facility] Comment: [...] 2:28 AM EST 06/20/2024 2:36 AM EST Ekila Dayan CHOU CHEMISTRY ORDERABL ES [facility] [place] [address] * POC, GLUCOSE (06/20/2024 12:32 AM EST) [employer] Signature Glucometer, POC 86 65 - 199 mg/dL 06/20/2024 12:32 AM EST [facility] Comment:Supplemental ranges: <140 mg/dL before meals <180 mg/dL all other times of the day. Blood CAPILLARY BLOOD / Unknown 06/20/2024 12:32 AM EST 06/20/2024 12:32 AM EST Bobby Loja MD POINT OF CARE TEST O NIKA Performing Organization Address City/[facility] Co de Phone Number [facility] [place] [address] * (ABNORMAL) POC, GLUCOSE (06/20/2024 12:02 AM EST) Glucometer, POC 59(L) 65 - 199 mg/dL 06/20/2024 12:02 AM EST [facility] Comment:Supplemental ranges: <140 mg/dL before meals <180 mg/dL all other times of the day. Blood CAPILLARY BLOOD / Unknown 06/20/2024 12:02 AM EST 06/20/2024 12:03 AM EST Bobby Loja MD POINT OF CARE TEST O NIKA Performing Organization Address [facility] Co de Phone Number [facility] [place] [address] * POC, GLUCOSE (06/19/2024 8:15 PM EST) Glucometer, POC 131 65 - 199 mg/dL 06/19/2024 8:15 PM EST [facility] Comment:Supplemental ranges: <140 mg/dL before meals <180 mg/dL all other times of the day. Blood CAPILLARY BLOOD / Unknown 06/19/2024 8:15 PM EST 06/19/2024 8:15 PM EST Bobby Loja MD POINT OF CARE TEST O NIKA Performing Organization Address City/[facility]/ZIP Co de Phone Number [facility] [place] [address] * POC, GLUCOSE (06/19/2024 6:01 PM EST) [...] CARE TEST O NIKA Performing Organization Address City/[facility] Co de Phone Number [facility] [place] [address] * POC, GLUCOSE (06/19/2024 4:51 PM EST) Glucometer, POC 155 65 - 199 mg/dL 06/19/2024 4:51 PM EST [facility] Comment:Supplemental ranges: <140 mg/dL before meals <180 mg/dL all other times of the day. Blood CAPILLARY BLOOD / Unknown 06/19/2024 4:51 PM EST 06/19/2024 4:51 PM EST Bobby Loja MD POINT OF CARE TEST Abimael MAHER Performing Organization Address [facility] Co de Phone Number [facility] [place] [address] * POC, GLUCOSE (06/19/2024 12:37 PM EST) Glucometer, POC 136 65 - 199 mg/dL 06/19/2024 12:37 PM EST [facility] Comment:Supplemental ranges: <140 mg/dL before meals <180 mg/dL all other times of the day. Blood CAPILLARY BLOOD / Unknown 06/19/2024 12:37 PM EST 06/19/2024 12:37 PM EST Narrative Authorizing Provider Result Saranya Loja MD POINT OF CARE TEST O NIKA Performing Organization Address City/[facility] Co de Phone Number [facility] [place] [address] * POC, GLUCOSE (06/19/2024 11:20 AM EST) Glucometer, POC 185 65 - 199 mg/dL 06/19/2024 11:21 AM EST [facility] Comment:Supplemental ranges: <140 mg/dL before meals <180 mg/dL all other times of the day. Blood CAPILLARY BLOOD / Unknown 06/19/2024 11:20 AM EST 06/19/2024 11:21 AM EST Bobby Loja MD POINT OF CARE TEST O NIKA Performing Organization Address City/[facility]/ZIP Co de Phone Number [facility] [place] [address] * POC, GLUCOSE (06/19/2024 7:21 AM EST) Glucometer, POC 125 65 - 199 mg/dL 06/19/2024 7:21 AM EST [facility] Comment:Supplemental ranges: <140 mg/dL before meals <180 mg/dL all other times of the day. Blood CAPILLARY BLOOD / Unknown 06/19/2024 7:21 AM EST 06/19/2024 7:22 AM EST Bobby Loja MD POINT OF CARE TEST O NIKA Performing Organization Address [facility] Co de Phone Number [facility] [place] [address] * POC, GLUCOSE (06/19/2024 4:52 AM EST) Glucometer, POC 125 65 - 199 mg/dL 06/19/2024 4:52 AM EST [facility] Comment:Supplemental ranges: <140 mg/dL before meals <180 mg/dL all other times of the day. Blood CAPILLARY BLOOD / Unknown 06/19/2024 4:52 AM EST 06/19/2024 4:52 AM EST Narrative Authorizing Provider Result Saranya Loja MD POINT OF CARE TEST O NIKA Performing Organization Address City/[facility]/ZIP Co de Phone Number [facility] [place] [address] * POC, GLUCOSE (06/19/2024 4:13 AM EST) [...] O NIKA [facility] [place] [address] * (ABNORMAL) POC, GLUCOSE (06/19/2024 3:48 AM [...] O NIKA [facility] [place] [address] * (ABNORMAL) Basic Metabolic Panel (06/19/2024 3:44 AM EST) Glucose 53(LLL) 65 - 199 mg/dL 06/19/2024 4:48 AM EST [facility] Comment:Glucose Concentratio n >=200 mg/dL plus symptoms is consistent with Diabetes Mellitus. Blood Urea Nitrogen 42(H) 10 - 20 mg/dL 06/19/2024 4:48 AM EST [facility] Creatinine 1.29 0.80 - 1.50 mg/dL 06/19/2024 4:48 AM EST [facility] [...] 8.5 - 10.5 mg/dL 06/19/2024 4:48 AM [facility] Est Glomerular Filtration Rate - Male 61 mL/min/1. 73 m?? 06/19/2024 4:48 AM [facility] Comment: [...] AM EST 06/19/2024 3:51 AM EST Keila Dyaan BRIAR CUTTER CHEMISTRY ORDERABL ES [facility] [place] [address] * POC, GLUCOSE (06/19/2024 12:23 AM EST) [employer] Signature Glucometer, POC 82 65 - 199 mg/dL 06/19/2024 12:23 AM [facility] Comment:Supplemental ranges: <140 mg/dL before meals <180 mg/dL all other times of the day. Blood CAPILLARY BLOOD / Unknown 06/19/2024 12:23 AM EST 06/19/2024 12:23 AM EST Bobby Loja MD POINT OF CARE TEST O NIKA Performing Organization Address City/[facility] Co de Phone Number [facility] [place] [address] * POC, GLUCOSE (06/18/2024 11:08 PM EST) Glucometer, POC 73 65 - 199 mg/dL 06/18/2024 11:08 PM EST [facility] Comment:Supplemental ranges: <140 mg/dL before meals <180 mg/dL all other times of the day. Blood CAPILLARY BLOOD / Unknown 06/18/2024 11:08 PM EST 06/18/2024 11:08 PM EST Bobby Loja MD POINT OF CARE TEST Abimael MAHER Performing Organization Address [facility] Co de Phone Number [facility] [place] [address] * POC, GLUCOSE (06/18/2024 7:32 PM EST) Glucometer, POC 167 65 - 199 mg/dL 06/18/2024 7:32 PM EST [facility] Comment:Supplemental ranges: <140 mg/dL before meals <180 mg/dL all other times of the day. Blood CAPILLARY BLOOD / Unknown 06/18/2024 7:32 PM EST 06/18/2024 7:32 PM EST Bobby Loja MD POINT OF CARE TEST O NIKA Performing Organization Address City/[facility] Co de Phone Number [facility] [place] [address] * POC, GLUCOSE (06/18/2024 6:08 PM EST) Glucometer, POC 140 65 - 199 mg/dL 06/18/2024 6:09 PM EST [facility] Comment:Supplemental ranges: <140 mg/dL before meals <180 mg/dL all other times of the day. Blood CAPILLARY BLOOD / Unknown 06/18/2024 6:08 PM EST 06/18/2024 6:09 PM EST Bobby Loja MD POINT OF CARE TEST O RDERAPIETER Performing Organization Address City/[facility]/ZIP Co de Phone Number [facility] [place] [address] * POC, GLUCOSE (06/18/2024 4:17 PM EST) Glucometer, POC 144 65 - 199 mg/dL 06/18/2024 4:17 PM EST [facility] Comment:Supplemental ranges: <140 mg/dL before meals <180 mg/dL all other times of the day. Blood CAPILLARY BLOOD / Unknown 06/18/2024 4:17 PM EST 06/18/2024 4:17 PM EST Narrative Authorizing Provider Result Saranya Loja MD POINT OF CARE TEST O NIKA Performing Organization Address [facility] Co de Phone Number [facility] [place] [address] * POC, GLUCOSE (06/18/2024 12:09 PM EST) Glucometer, POC 180 65 - 199 mg/dL 06/18/2024 12:09 PM EST [facility] Comment:Supplemental ranges: <140 mg/dL before meals <180 mg/dL all other times of the day. Blood CAPILLARY BLOOD / Unknown 06/18/2024 12:09 PM EST 06/18/2024 12:09 PM EST Narrative Authorizing Provider Result Saranya Loja MD POINT OF CARE TEST O RDERAPIETER Performing Organization Address City/[facility]/ZIP Co de Phone Number [facility] [place] [address] * POC, GLUCOSE (06/18/2024 7:49 AM EST) [...] O RDERABLES [facility] [place] [address] * (ABNORMAL) Basic Metabolic Panel (06/18/2024 4:19 [...] APRN CHEMISTRY ORDERABL ES Performing Organization Address City/[facility]/ZIP Co de Phone Number [facility] [place] [address] * POC, GLUCOSE (06/18/2024 3:50 AM EST) [...] O RDERABLES [facility] [place] [address] * POC, GLUCOSE (06/17/2024 11:10 PM EST) Glucometer, POC 92 65 - 199 mg/dL 06/17/2024 11:10 PM EST [facility] Comment:Supplemental ranges: <140 mg/dL before meals <180 mg/dL all other times of the day. Blood CAPILLARY BLOOD / Unknown 06/17/2024 11:10 PM EST 06/17/2024 11:10 PM EST Narrative Authorizing Provider Result Saranya Loja MD POINT OF CARE TEST O NIKA Performing Organization Address [facility] Co de Phone Number [facility] [place] [address] * POC, GLUCOSE (06/17/2024 7:54 PM EST) Glucometer, POC 126 65 - 199 mg/dL 06/17/2024 7:54 PM EST [facility] Comment:Supplemental ranges: <140 mg/dL before meals <180 mg/dL all other times of the day. Blood CAPILLARY BLOOD / Unknown 06/17/2024 7:54 PM EST 06/17/2024 7:54 PM EST Bobby Loja MD POINT OF CARE TEST O NIKA Performing Organization Address [facility] Co de Phone Number [facility] [place] [address] * POC, GLUCOSE (06/17/2024 4:07 PM EST) Glucometer, POC 141 65 - 199 mg/dL 06/17/2024 4:12 PM EST [facility] Comment:Supplemental ranges: <140 mg/dL before meals <180 mg/dL all other times of the day. Blood CAPILLARY BLOOD / Unknown 06/17/2024 4:07 PM EST 06/17/2024 4:12 PM EST Narrative Authorizing Provider Result Saranya Loja MD POINT OF CARE TEST O NIKA Performing Organization Address [facility] Co de Phone Number [facility] [place] [address] * XR Chest PA & Lateral (Generic) (06/17/2024 1:46 PM EST) WORKSTATION ID [id number] DH RAD Anatomical Region Laterality Modality Chest [...] who have questions please contact the health child care aide that requested your imaging first. ? Narrative [...] patients who have questions please contactthe health child care aide that requested your imaging first. Keila Dayan CHOU IMG DX ORDERABLES * (ABNORMAL) POC, GLUCOSE [...] CARE TEST O NIKA Performing Organization Address City/[facility]/ZIP Co de Phone Number [facility] [place] [address] * POC, GLUCOSE (06/17/2024 7:49 AM EST) Glucometer, POC 141 65 - 199 mg/dL 06/17/2024 7:55 AM EST [facility] Comment:Supplemental ranges: <140 mg/dL before meals <180 mg/dL all other times of the day. Blood CAPILLARY BLOOD / Unknown 06/17/2024 7:49 AM EST 06/17/2024 7:55 AM EST Bobby Loja MD POINT OF CARE TEST O NIKA Performing Organization Address City/[facility]/ZIP Co de Phone Number [facility] [place] [address] * POC, GLUCOSE (06/17/2024 4:16 AM EST) [facility] Glucometer, POC 139 65 - 199 mg/dL 06/17/2024 4:16 AM EST [facility] Comment:Supplemental ranges: <140 mg/dL before meals <180 mg/dL all other times of the day. Blood CAPILLARY BLOOD / Unknown 06/17/2024 4:16 AM EST 06/17/2024 4:17 AM EST Bobby Loja MD POINT OF CARE TEST O RDERABLES [facility] [place] [address] * Lactate, Whole Blood (06/17/2024 2:39 AM EST) [facility] Lactate, Whole Blood 1.3 0.5 - 2.2 mmol/L 06/17/2024 2:46 AM EST [facility] Blood VENOUS BLOOD SPECIMEN / Unknown Venipuncture / Unknown 06/17/2024 2:39 AM EST 06/17/2024 2:43 AM EST Bobby Loja MD CHEMISTRY ORDERABLES [facility] [place] [address] * (ABNORMAL) Hemogram (06/17/2024 2:39 AM EST) [facility] White Blood Cell 13.53(H) 4.00 - 9.50 x10(3)/mc L 06/17/2024 2:53 AM EST [facility] Red Blood Cell 3.55(L) 4.58 - 5.54 x10(6)/mc L 06/17/2024 2:53 AM EST [facility] Hemoglobin 10.8(L) 13.7 - 16.5 g/dL 06/17/2024 2:53 AM EST [facility] Hematocrit 33.0(L) 40.5 - [...] ORDERABLE S [facility] [place] [address] * (ABNORMAL) Basic Metabolic Panel (06/17/2024 2:39 [...] 98 - 107 mMol/L 06/17/2024 3:14 AM [facility] Carbon Dioxide 23 22 - 31 mMol/L 06/17/2024 3:14 AM [facility] Anion Gap 9 5 - 15 mMol/L 06/17/2024 3:14 AM [facility] Calcium 8.8 8.5 - 10.5 mg/dL 06/17/2024 3:14 AM [facility] Est Glomerular Filtration Rate - Male 50 mL/min/1. 73 m?? 06/17/2024 3:14 AM [facility] Comment: [...] CHEMISTRY ORDERABLES [facility] [place] [address] * (ABNORMAL) POC, GLUCOSE (06/17/2024 12:13 AM EST) Glucometer, POC 211(H) 65 - 199 mg/dL 06/17/2024 12:13 AM EST [facility] Comment:Supplemental ranges: <140 mg/dL before meals <180 mg/dL all other times of the day. Blood CAPILLARY BLOOD / Unknown 06/17/2024 12:13 AM EST 06/17/2024 12:14 AM EST Bobby Loja MD POINT OF CARE TEST O NIKA Performing Organization Address [facility] Co de Phone Number [facility] [place] [address] * (ABNORMAL) POC, GLUCOSE (06/16/2024 7:22 PM EST) Glucometer, POC 229(H) 65 - 199 mg/dL 06/16/2024 7:22 PM EST [facility] Comment:Supplemental ranges: <140 mg/dL before meals <180 mg/dL all other times of the day. Blood CAPILLARY BLOOD / Unknown 06/16/2024 7:22 PM EST 06/16/2024 7:22 PM EST Bobby Loja MD POINT OF CARE TEST Abimael MAHER [facility] [place] [address] * (ABNORMAL) POC, GLUCOSE (06/16/2024 6:14 PM EST) Glucometer, POC 220(H) 65 - 199 mg/dL 06/16/2024 6:14 PM EST [facility] Comment:Supplemental ranges: <140 mg/dL before meals <180 mg/dL all other times of the day. Blood CAPILLARY BLOOD / Unknown 06/16/2024 6:14 PM EST 06/16/2024 6:14 PM EST Bobby Loja MD POINT OF CARE TEST O RDERABLES Performing Organization Address [facility] Co de Phone Number [facility] [place] [address] * Lactate, Whole Blood (06/16/2024 6:14 PM EST) Lactate, Whole Blood 1.8 0.5 - 2.2 mmol/L 06/16/2024 6:27 PM EST [facility] Blood VENOUS BLOOD SPECIMEN / Unknown Venipuncture / Unknown 06/16/2024 6:14 PM EST 06/16/2024 6:25 PM EST Bobby Loja MD CHEMISTRY ORDERABLES Performing Organization Address [facility] Co de Phone Number [facility] [place] [address] * (ABNORMAL) POC, GLUCOSE (06/16/2024 4:14 PM EST) Glucometer, POC 240(H) 65 - 199 mg/dL 06/16/2024 4:14 PM EST [facility] Comment:Supplemental ranges: <140 mg/dL before meals <180 mg/dL all other times of the day. Blood CAPILLARY BLOOD / Unknown 06/16/2024 4:14 PM EST 06/16/2024 4:14 PM EST Bobby Loja MD POINT OF CARE TEST O RDBECKIE Performing Organization Address [facility] Co de Phone Number [facility] [place] [address] * POC, GLUCOSE (06/16/2024 11:49 AM EST) [...] O RDERABLES [facility] [place] [address] * (ABNORMAL) Hemogram (06/16/2024 11:44 AM EST) [...] 11.4 - 13.8 % 06/16/2024 12:25 PM EST [facility] NRBC% auto 0.0 % 06/16/2024 12:25 PM EST [facility] NRBC Absolute <0.01 <0.01 x10(3)/mc L 06/16/2024 12:25 PM EST [facility] Blood VENOUS BLOOD SPECIMEN / Unknown Venipuncture / Unknown 06/16/2024 11:44 AM EST 06/16/2024 12:03 PM EST Bobby Loja MD H[place]OLOGY [place] [address] * Lactate, Whole Blood (06/16/2024 9:02 AM EST) Lactate, Whole Blood 1.8 0.5 - 2.2 mmol/L 06/16/2024 9:19 AM EST [facility] Blood VENOUS BLOOD SPECIMEN / Unknown Venipuncture / Unknown 06/16/2024 9:02 AM EST 06/16/2024 9:17 AM EST Bobby Loja MD CHEMISTRY ORDERABLES Performing Organization Address City/[facility]/[place] [address] * POC, GLUCOSE (06/16/2024 7:44 AM EST) [...] O RDERABLES [facility] [place] [address] * POC, GLUCOSE (06/16/2024 4:01 AM EST) [...] O RDERABLES [facility] [place] [address] * (ABNORMAL) Basic Metabolic Panel (06/16/2024 2:23 [...] 8.5 - 10.5 mg/dL 06/16/2024 3:13 AM EST [facility] Est Glomerular Filtration Rate - Male 34 mL/min/1. 73 m?? 06/16/2024 3:13 AM EST [facility] Loja MD CHEMISTRY ORDERABLES Performing Organization Address [facility] Co de Phone Number [facility] [place] [address] * POC, GLUCOSE (06/16/2024 2:21 AM EST) Glucometer, POC 176 65 - 199 mg/dL 06/16/2024 2:31 AM EST [facility] Comment:Supplemental ranges: <140 mg/dL before meals <180 mg/dL all other times of the day. Blood CAPILLARY BLOOD / Unknown 06/16/2024 2:21 AM EST 06/16/2024 2:31 AM EST Bobby Loja MD POINT OF CARE TEST O RDERABLES Performing Organization Address City/[facility]/ZIP Co de Phone Number [facility] [place] [address] * (ABNORMAL) POC, GLUCOSE (06/16/2024 12:09 AM EST) Glucometer, POC 222(H) 65 - 199 mg/dL 06/16/2024 12:09 AM EST [facility] Comment:Supplemental ranges: <140 mg/dL before meals <180 mg/dL all other times of the day. Blood CAPILLARY BLOOD / Unknown 06/16/2024 12:09 AM EST 06/16/2024 12:09 AM EST Bobby Loja MD POINT OF CARE TEST O NIKA Performing Organization Address [facility]/ZIP Co de Phone Number [facility] [place] [address] * (ABNORMAL) POC, GLUCOSE (06/15/2024 10:07 PM EST) Glucometer, POC 320(H) 65 - 199 mg/dL 06/15/2024 10:07 PM EST [facility] Comment:Supplemental ranges: <140 mg/dL before meals <180 mg/dL all other times of the day. Blood CAPILLARY BLOOD / Unknown 06/15/2024 10:07 PM EST 06/15/2024 10:07 PM EST Bobby Loja MD POINT OF CARE TEST O NIKA Performing Organization Address [facility] Co de Phone Number [facility] [place] [address] * (ABNORMAL) POC, GLUCOSE (06/15/2024 7:56 PM EST) Glucometer, POC 304(H) 65 - 199 mg/dL 06/15/2024 7:56 PM EST [facility] Comment:Supplemental ranges: <140 mg/dL before meals <180 mg/dL all other times of the day. Blood CAPILLARY BLOOD / Unknown 06/15/2024 7:56 PM EST 06/15/2024 7:56 PM EST Bobby Loja MD POINT OF CARE TEST O NIKA Performing Organization Address City/[facility]/ZIP Co de Phone Number [facility] [place] [address] * (ABNORMAL) POC, GLUCOSE (06/15/2024 7:52 PM EST) Glucometer, POC 288(H) 65 - 199 mg/dL 06/15/2024 7:52 PM EST [facility] Comment:Supplemental ranges: <140 mg/dL before meals <180 mg/dL all other times of the day. Blood CAPILLARY BLOOD / Unknown 06/15/2024 7:52 PM EST 06/15/2024 7:52 PM EST Bobby Loja MD POINT OF CARE TEST O RDERAPIETER Performing Organization Address [facility] Co de Phone Number [facility] [place] [address] * POC, GLUCOSE (06/15/2024 4:21 PM EST) Glucometer, POC 192 65 - 199 mg/dL 06/15/2024 4:21 PM EST [facility] Comment:Supplemental ranges: <140 mg/dL before meals <180 mg/dL all other times of the day. Blood CAPILLARY BLOOD / Unknown 06/15/2024 4:21 PM EST 06/15/2024 4:21 PM EST Bobby Loja MD POINT OF CARE TEST O NIKA Performing Organization Address [facility] Co de Phone Number [facility] [place] [address] * POC, GLUCOSE (06/15/2024 3:27 PM EST) Glucometer, POC 155 65 - 199 mg/dL 06/15/2024 3:27 PM EST [facility] Comment:Supplemental ranges: <140 mg/dL before meals <180 mg/dL all other times of the day. Blood CAPILLARY BLOOD / Unknown 06/15/2024 3:27 PM EST 06/15/2024 3:27 PM EST Bobby Loja MD POINT OF CARE TEST O RDERABLES Performing Organization Address [facility] Co de Phone Number [facility] [place] [address] * POC, GLUCOSE (06/15/2024 2:23 PM EST) Glucometer, POC 160 65 - 199 mg/dL 06/15/2024 2:23 PM EST [facility] Comment:Supplemental ranges: <140 mg/dL before meals <180 mg/dL all other times of the day. Blood CAPILLARY BLOOD / Unknown 06/15/2024 2:23 PM EST 06/15/2024 2:23 PM EST Bobby Loja MD POINT OF CARE TEST O RDBECKIE Performing Organization Address [facility] Co de Phone Number [facility] [place] [address] * POC, GLUCOSE (06/15/2024 1:26 PM EST) Glucometer, POC 167 65 - 199 mg/dL 06/15/2024 1:26 PM EST [facility] Comment:Supplemental ranges: <140 mg/dL before meals <180 mg/dL all other times of the day. Blood CAPILLARY BLOOD / Unknown 06/15/2024 1:26 PM EST 06/15/2024 1:26 PM EST Bobby Loja MD POINT OF CARE TEST O RDERAPIETER Performing Organization Address [facility] Co de Phone Number [facility] [place] [address] * (ABNORMAL) POC, GLUCOSE (06/15/2024 12:55 PM EST) Glucometer, POC 210(H) 65 - 199 mg/dL 06/15/2024 12:55 PM EST [facility] Comment:Supplemental ranges: <140 mg/dL before meals <180 mg/dL all other times of the day. Blood CAPILLARY BLOOD / Unknown 06/15/2024 12:55 PM EST 06/15/2024 12:55 PM EST Bobby Loja MD POINT OF CARE TEST O NIKA Performing Organization Address City/[facility]/ZIP Co de Phone Number [facility] [place] [address] * (ABNORMAL) POC, GLUCOSE (06/15/2024 11:29 AM EST) Glucometer, POC 220(H) 65 - 199 mg/dL 06/15/2024 11:29 AM EST [facility] Comment:Supplemental ranges: <140 mg/dL before meals <180 mg/dL all other times of the day. Blood CAPILLARY BLOOD / Unknown 06/15/2024 11:29 AM EST 06/15/2024 11:29 AM EST Bobby Loja MD POINT OF CARE TEST O NIKA Performing Organization Address [facility] Co de Phone Number [facility] [place] [address] * (ABNORMAL) Basic Metabolic Panel (06/15/2024 11:23 AM EST) Glucose 215(H) 65 - 199 mg/dL 06/15/2024 12:08 PM EST [facility] Comment:Glucose Concentratio n >=200 mg/dL plus symptoms is consistent with Diabetes Mellitus. Blood Urea Nitrogen 24(H) 10 - 20 mg/dL 06/15/2024 12:08 PM [facility] Creatinine 1.54(H) 0.80 - 1.50 mg/dL 06/15/2024 12:08 PM EST [facility] Sodium 135 135 - 145 mMol/L 06/15/2024 12:08 PM [facility] Potassium 4.5 3.5 - 5.0 mMol/L 06/15/2024 12:08 PM [facility] Chloride 105 98 - 107 mMol/L 06/15/2024 12:08 PM [facility] Carbon Dioxide 19(L) 22 - 31 mMol/L 06/15/2024 12:08 PM EST [facility] Anion Gap 11 5 - 15 mMol/L 06/15/2024 12:08 PM EST [facility] Calcium 8.3(L) 8.5 - 10.5 mg/dL 06/15/2024 12:08 PM EST [facility] Est Glomerular Filtration Rate - Male 49 mL/min/1. 73 m?? 06/15/2024 12:08 PM EST [facility] [...] CHEMISTRY ORDERABLES [facility] [place] [address] * POC, GLUCOSE (06/15/2024 10:29 AM EST) [...] O RDERABLES [facility] [place] [address] * POC, GLUCOSE (06/15/2024 9:45 AM EST) Glucometer, POC 178 65 - 199 mg/dL 06/15/2024 9:45 AM [facility] Comment:Supplemental ranges: <140 mg/dL before meals <180 mg/dL all other times of the day. Blood CAPILLARY BLOOD / Unknown 06/15/2024 9:45 AM EST 06/15/2024 9:45 AM EST Bobby Loja MD POINT OF CARE TEST O NIKA Performing Organization Address [facility] Co de Phone Number [facility] [place] [address] * (ABNORMAL) Cooximetry, POC (06/15/2024 9:31 AM [...] O NIKA [facility] [place] [address] * Cooximetry, POC (06/15/2024 9:22 AM EST) Pathologist [facility] pO2, Coox 30 mmHg 06/15/2024 9:25 AM [facility] Hemoglobin, Coox 06/15/2024 9:25 AM EST [facility] Comment:QUES Oxyhemoglobin, Coox 06/15/2024 9:25 AM [facility] Comment:QUES Carboxyhemoglo bin, Coox 06/15/2024 9:25 AM [facility] Comment:QUES Methemoglobin, Coox 06/15/2024 9:25 AM [facility] Comment:QUES Blood (Mixed Venous) 06/15/2024 9:22 AM EST 06/15/2024 9:25 AM EST Bobby Loja MD POINT OF CARE TEST O RDERABLES [facility] [place] [address] * (ABNORMAL) Blood Gas, Arterial POC (06/15/2024 [...] O RDERABLES [facility] [place] [address] * (ABNORMAL) POC, GLUCOSE (06/15/2024 8:37 AM EST) Glucometer, POC 204(H) 65 - 199 mg/dL 06/15/2024 8:37 AM EST [facility] Comment:Supplemental ranges: <140 mg/dL before meals <180 mg/dL all other times of the day. Blood CAPILLARY BLOOD / Unknown 06/15/2024 8:37 AM EST 06/15/2024 8:37 AM EST Bobby Loja MD POINT OF CARE TEST O RDBECKIE Performing Organization Address City/[facility]/ZIP Co de Phone Number [facility] [place] [address] * POC, GLUCOSE (06/15/2024 7:37 AM EST) Glucometer, POC 199 65 - 199 mg/dL 06/15/2024 7:37 AM EST [facility] Comment:Supplemental ranges: <140 mg/dL before meals <180 mg/dL all other times of the day. Blood CAPILLARY BLOOD / Unknown 06/15/2024 7:37 AM EST 06/15/2024 7:38 AM EST Bobby Loja MD POINT OF CARE TEST O RDBECKIE [facility] [place] [address] * (ABNORMAL) POC, GLUCOSE (06/15/2024 7:01 AM EST) Glucometer, POC 203(H) 65 - 199 mg/dL 06/15/2024 7:01 AM EST [facility] Comment:Supplemental ranges: <140 mg/dL before meals <180 mg/dL all other times of the day. Blood CAPILLARY BLOOD / Unknown 06/15/2024 7:01 AM EST 06/15/2024 7:01 AM EST Bobby Loja MD POINT OF CARE TEST O RDERABLES [facility] [place] [address] * XR Chest One View (06/15/2024 6:31 AM EST) WORKSTATION ID [id number] RAD Anatomical Region Laterality Modality Chest N/A [...] who have questions please contact the health child care aide that requested your imaging first. ? Narrative [...] patients who have questions please contactthe health child care aide that requested your imaging first. Bobby Loja [...] O RDERABLES [facility] [place] [address] * POC, GLUCOSE (06/15/2024 5:06 AM EST) Glucometer, POC 160 65 - 199 mg/dL 06/15/2024 5:06 AM EST [facility] Comment:Supplemental ranges: <140 mg/dL before meals <180 mg/dL all other times of the day. Blood CAPILLARY BLOOD / Unknown 06/15/2024 5:06 AM EST 06/15/2024 5:06 AM EST Bobby Loja MD POINT OF CARE TEST O RDERABLES Performing Organization Address [facility]/ZIP Co de Phone Number [facility] [place] [address] * POC, GLUCOSE (06/15/2024 4:05 AM EST) Glucometer, POC 160 65 - 199 mg/dL 06/15/2024 4:06 AM EST [facility] Comment:Supplemental ranges: <140 mg/dL before meals <180 mg/dL all other times of the day. Blood CAPILLARY BLOOD / Unknown 06/15/2024 4:05 AM EST 06/15/2024 4:06 AM EST Bobby Loja MD POINT OF CARE TEST O NIKA Performing Organization Address [facility] Co de Phone Number [facility] [place] [address] * POC, GLUCOSE (06/15/2024 3:07 AM EST) Glucometer, POC 151 65 - 199 mg/dL 06/15/2024 3:07 AM EST [facility] Comment:Supplemental ranges: <140 mg/dL before meals <180 mg/dL all other times of the day. Blood CAPILLARY BLOOD / Unknown 06/15/2024 3:07 AM EST 06/15/2024 3:07 AM EST Bobby Loja MD POINT OF CARE TEST O NIKA Performing Organization Address City/[facility]/ZIP Co de Phone Number [facility] [place] [address] * (ABNORMAL) Basic Metabolic Panel (06/15/2024 1:48 AM EST) Glucose 140 65 - 199 mg/dL 06/15/2024 2:38 AM EST [facility] [...] 22 - 31 mMol/L 06/15/2024 2:38 AM [facility] Anion [...] CHEMISTRY ORDERABLES [facility] [place] [address] * (ABNORMAL) CBC (with Diff) (06/15/2024 1:48 AM EST) White Blood Cell 11.71(H) 4.00 - 9.50 x10(3)/mc L 06/15/2024 2:13 AM [facility] Red Blood Cell 4.14(L) 4.58 [...] Neutrophil % 79.7 % 06/15/2024 2:13 AM EST [facility] Neutrophil Absolute (ANC) - Automated 9.34(H) 1.70 - 6.10 x10(3)/mc L 06/15/2024 2:13 AM EST [facility] Lymph % 8.0 % 06/15/2024 2:13 AM [facility] Lymph Absolute 0.94 0.90 - 3.20 x10(3)/mc L 06/15/2024 2:13 AM EST [facility] Monocyte % 11.4 % 06/15/2024 2:13 AM [facility] Monocyte Absolute 1.33(H) 0.30 - 0.90 x10(3)/mc L 06/15/2024 2:13 AM [facility] Eos % 0.2 % 06/15/2024 2:13 AM [facility] Eos Absolute <0.04 0.00 - 0.40 x10(3)/mc L 06/15/2024 2:13 AM EST [facility] Basophil % 0.2 % [...] ORDERABLE S [facility] [place] [address] * (ABNORMAL) Troponin - Single (06/15/2024 1:48 [...] troponin value can be found in the [facility] Test Catalog Troponin - [email or web address] Reference: Fourth [place] Definition of Myocardial Infarction. Journal of the [place] [employer] 2018;72:6123-1499 Blood VENOUS BLOOD SPECIMEN / Unknown Venipuncture / Unknown 06/15/2024 1:48 AM EST 06/15/2024 1:52 AM EST Bobby Loja MD CHEMISTRY ORDERABLES [facility] [place] [address] * (ABNORMAL) Blood Gas, Arterial POC (06/15/2024 1:46 AM EST) pH, Arterial 7.33(L) 7.35 - 7.45 06/15/2024 1:47 AM EST [facility] PCO2, Arterial 40 35 - 45 mmHg 06/15/2024 1:47 AM [facility] PO2, Arterial 131(H) 85 - 104 mmHg 06/15/2024 1:47 AM [facility] Bicarbonate, Arterial 20.7 20.0 - 26.0 mmol/L 06/15/2024 1:47 AM [facility] Base Excess, Arterial -5.2(L) -3.0 - 3.0 mmol/L 06/15/2024 1:47 AM [facility] Hemoglobin, Arterial 13.4(L) 13.7 - [...] 1.15 - 1.33 mmol/L 06/15/2024 1:47 AM EST [facility] Glucose, Arterial 127 65 - 199 mg/dL 06/15/2024 1:47 AM EST [facility] Comment:Glucose Concentratio n >=200 mg/dL plus symptoms is consistent with Diabetes Mellitus. Blood ARTERIAL BLOOD / Unknown 06/15/2024 1:46 AM EST 06/15/2024 1:47 AM EST Bobby Loja MD POINT OF CARE TEST O NIKA Performing Organization Address City/[facility] Co de Phone Number [facility] [place] [address] * POC, GLUCOSE (06/15/2024 1:05 AM EST) Glucometer, POC 116 65 - 199 mg/dL 06/15/2024 1:05 AM EST [facility] Comment:Supplemental ranges: <140 mg/dL before meals <180 mg/dL all other times of the day. Blood CAPILLARY BLOOD / Unknown 06/15/2024 1:05 AM EST 06/15/2024 1:05 AM EST Bobby Loja MD POINT OF CARE TEST O NIKA Performing Organization Address [facility]/ZIP Co de Phone Number [facility] [place] [address] * POC, GLUCOSE (06/15/2024 12:16 AM EST) [...] O NIKA [facility] [place] [address] * Potassium (06/14/2024 11:28 PM EST) Potassium 4.1 3.5 - 5.0 mMol/L 06/14/2024 11:54 PM EST [facility] Blood VENOUS BLOOD SPECIMEN / Unknown Venipuncture / Unknown 06/14/2024 11:28 PM EST 06/14/2024 11:34 PM EST Bobby Loja MD CHEMISTRY ORDERABLES Performing Organization Address [facility]/ZIP Co de Phone Number [facility] [place] [address] * POC, GLUCOSE (06/14/2024 10:58 PM EST) Glucometer, POC 126 65 - 199 mg/dL 06/14/2024 10:59 PM EST [facility] Comment:Supplemental ranges: <140 mg/dL before meals <180 mg/dL all other times of the day. Blood CAPILLARY BLOOD / Unknown 06/14/2024 10:58 PM EST 06/14/2024 10:59 PM EST Bobby Loja MD POINT OF CARE TEST O RDERABLES Performing Organization Address [facility]/ZIP Co de Phone Number [facility] [place] [address] * POC, GLUCOSE (06/14/2024 9:55 PM EST) [...] O RDERABLES [facility] [place] [address] * POC, GLUCOSE (06/14/2024 8:54 PM EST) Glucometer, POC 151 65 - 199 mg/dL 06/14/2024 8:54 PM EST [facility] Comment:Supplemental ranges: <140 mg/dL before meals <180 mg/dL all other times of the day. Blood CAPILLARY BLOOD / Unknown 06/14/2024 8:54 PM EST 06/14/2024 8:54 PM EST Bobby Loja MD POINT OF CARE TEST O NIKA Performing Organization Address City/[facility] Co de Phone Number [facility] [place] [address] * POC, GLUCOSE (06/14/2024 7:51 PM EST) Glucometer, POC 169 65 - 199 mg/dL 06/14/2024 7:52 PM EST [facility] Comment:Supplemental ranges: <140 mg/dL before meals <180 mg/dL all other times of the day. Blood CAPILLARY BLOOD / Unknown 06/14/2024 7:51 PM EST 06/14/2024 7:52 PM EST Bobby Loja MD POINT OF CARE TEST O NIKA Performing Organization Address City/[facility]/ZIP Co de Phone Number [facility] [place] [address] * POC, GLUCOSE (06/14/2024 6:49 PM EST) [...] O RDERABLES [facility] [place] [address] * (ABNORMAL) Hemoglobin (06/14/2024 6:19 PM EST) Hemoglobin 13.1(L) 13.7 - 16.5 g/dL 06/14/2024 7:08 PM EST [facility] Blood VENOUS BLOOD SPECIMEN / Unknown Venipuncture / Unknown 06/14/2024 6:19 PM EST 06/14/2024 6:28 PM EST Bobby Loja MD HEMATOLOGY ORDERABLE S Performing Organization Address City/[facility]/ZIP Co de Phone Number [facility] [place] [address] * Potassium (06/14/2024 6:19 PM EST) Potassium 3.9 3.5 - 5.0 mMol/L 06/14/2024 6:52 PM EST [facility] Blood VENOUS BLOOD SPECIMEN / Unknown Venipuncture / Unknown 06/14/2024 6:19 PM EST 06/14/2024 6:28 PM EST Bobby Loja MD CHEMISTRY ORDERABLES Performing Organization Address City/[facility]/ZIP Co de Phone Number [facility] [place] [address] * (ABNORMAL) POC, GLUCOSE (06/14/2024 6:03 PM [...] O RDERABLES [facility] [place] [address] * (ABNORMAL) Blood Gas, Arterial POC (06/14/2024 4:51 PM EST) pH, Arterial 7.32(L) 7.35 - 7.45 06/14/2024 4:52 PM EST [facility] PCO2, Arterial 46(H) 35 - 45 mmHg 06/14/2024 4:52 PM [facility] PO2, Arterial 85 85 - [...] 0.0 <=1.5 % 06/14/2024 4:52 PM EST [facility] Sodium, Arterial 138 135 - 145 mmol/L 06/14/2024 4:52 PM [facility] Potassium, Arterial 4.1 3.5 - 5.0 mmol/L 06/14/2024 4:52 PM [facility] Chloride, Arterial 106 98 - 107 mmol/L 06/14/2024 4:52 PM EST [facility] Lactate, Arterial 1.3 0.5 [...] - 1.33 mmol/L 06/14/2024 4:52 PM EST [facility] Glucose, Arterial 192 65 - 199 mg/dL 06/14/2024 4:52 PM [facility] Comment:Glucose Concentratio n >=200 mg/dL plus symptoms is consistent with Diabetes Mellitus. Blood ARTERIAL BLOOD / Unknown 06/14/2024 4:51 PM EST 06/14/2024 4:52 PM EST Bobby Loja MD [place]INT [place] [address] * POC, GLUCOSE (06/14/2024 4:00 PM EST) [...] O NIKA [facility] [place] [address] * XR Chest One View (06/14/2024 3:05 PM EST) WORKSTATION ID [id number] RAD Anatomical Region Laterality Modality Chest N/A [...] who have questions please contact the health child care aide that requested your imaging first. ? Narrative [...] patients who have questions please contactthe health child care aide that requested your imaging first. Bobby Loja [...] Arterial 0.1 <=1.5 % 06/14/2024 2:53 PM [facility] Sodium, [...] O RDERABLES [facility] [place] [address] * EKG 12 Lead (06/14/2024 2:46 PM EST) Ventricular rate 80 BPM MUSE SYSTEM Atrial Rate 80 BPM MUSE SYSTEM P-R Interval 120 ms MUSE SYSTEM QRS Duration 108 ms MUSE SYSTEM Q-T Interval 454 ms MUSE SYSTEM QTC Calculated (Bezet) 523 ms MUSE SYSTEM Calculated P [place] 70 degrees MUSE SYSTEM Calculated R [place] 56 degrees MUSE SYSTEM Calculated T [place] 50 degrees MUSE SYSTEM INTERPRETATION AV dual-paced rhythm Abnormal ECG When compared with ECG of 03-JUN-2024 01:45, Vent. rate has increased BY ??17 BPM Confirmed by MD Marisol, Shaheen ([id number]) on 06/15/2024 1:57:23 PM MUSE SYSTEM 06/14/2024 2:46 PM EST 06/15/2024 1:57 PM EST Bobby Loja MD ECG ORDERABLES MUSE SYSTEM * Prepare RBC (06/14/2024 2:27 PM EST) Status Information Returned [facility] Product Identification RBC [facility] Unit Number [id number] [facility] Product Code O0313A92 [facility] Unit Blood Type OPOS [facility] Specimen Expiration Date [facility] Volulme 350 [facility] Issue Date / Time [facility] Status Information Returned [facility] Product Identification RBC [facility] Unit Number [id number] [facility] Product Code [id number] [facility] Unit Blood Type OPOS [facility] Specimen Expiration Date [facility] Volulme 350 [facility] Issue Date / Time [facility] Blood 06/14/2024 6:2 5 AM EST Haja Byrnes MD BLOOD BANK PRODUCT O RDBECKIE [facility] [place] [place] [address] * (ABNORMAL) Cooximetry, POC (06/14/2024 1:52 PM [...] O NIKA [facility] [place] [address] * (ABNORMAL) Blood Gas, Arterial POC (06/14/2024 12:47 PM EST) pH, Arterial 7.33(L) 7.35 - 7.45 06/14/2024 12:48 PM EST [facility] PCO2, Arterial 46(H) 35 - 45 mmHg 06/14/2024 12:48 PM EST [facility] PO2, Arterial 358(H) 85 [...] 94.0 - 97.0 % 06/14/2024 12:48 PM [facility] Carboxyhemoglobin , Arterial 0.3 % 06/14/2024 12:48 PM [facility] Comment: Nonsmokers: 0.5-1.5% COHB ?? Smokers: Variable ??but usually less than 10% ?? Toxic: 20-30% COHB ?? Lethal: Greater than 60% COHB Methemoglobin, Arterial 0.5 <=1.5 % 06/14/2024 12:48 PM [facility] Sodium, [...] 65 - 199 mg/dL 06/14/2024 12:48 PM [facility] Comment:Glucose Concentratio n >=200 mg/dL plus symptoms is consistent with Diabetes Mellitus. Blood ARTERIAL BLOOD / Unknown 06/14/2024 12:47 PM EST 06/14/2024 12:48 PM EST Haja Byrnes MD POINT OF CARE TEST O RDERABLES [facility] [place] [address] * (ABNORMAL) Cooximetry, POC (06/14/2024 12:42 PM [...] O RDERABLES [facility] [place] [address] * (ABNORMAL) Platelet count (06/14/2024 12:30 PM EST) Platelet 73(L) 145 - 357 x10(3)/mcL 06/14/2024 12:54 PM EST [facility] Blood ARTERIAL BLOOD / Unknown 06/14/2024 12:30 PM EST Comment:Pre-op diagnosis: CAD Bobby Loja MD HEMATOLOGY ORDERABLE S Performing Organization Address [facility] Co de Phone Number [facility] [place] [address] * (ABNORMAL) Hemoglobin and Hematocrit, blood (06/14/2024 [...] MD HEMATOLOGY ORDERABLE S Performing Organization Address [facility] de Phone Number [facility] [place] [address] * APTT (06/14/2024 12:30 PM EST) Partial [...] ORDERABLE S [facility] [place] [address] * (ABNORMAL) Prothrombin Time (06/14/2024 12:30 PM [...] MD HEMATOLOGY ORDERABLE S Performing Organization Address City/[facility] Co de Phone Number [facility] [place] [address] * Fibrinogen (06/14/2024 12:30 PM EST) Fibrinogen [...] ORDERABLE S [facility] [place] [address] * (ABNORMAL) Blood Gas, Arterial POC (06/14/2024 12:15 PM EST) pH, Arterial 7.38 7.35 - 7.45 06/14/2024 12:16 PM [facility] PCO2, Arterial 40 35 - 45 mmHg 06/14/2024 12:16 PM [facility] Bicarbonate, Arterial 22.9 20.0 - 26.0 mmol/L 06/14/2024 12:16 PM [facility] Base Excess, Arterial -2.3 -3.0 - 3.0 mmol/L 06/14/2024 12:16 PM [facility] Hemoglobin, Arterial 11.4(L) 13.7 - [...] 65 - 199 mg/dL 06/14/2024 12:16 PM EST [facility] Comment:Glucose Concentratio n >=200 mg/dL plus symptoms is consistent with Diabetes Mellitus. Blood ARTERIAL BLOOD / Unknown 06/14/2024 12:15 PM EST 06/14/2024 12:16 PM EST Haja Byrnes MD POINT OF CARE TEST O RDERABLES [facility] [place] [address] * (ABNORMAL) Blood Gas, Arterial POC (06/14/2024 [...] O RDERABLES [facility] [place] [address] * (ABNORMAL) Blood Gas, Arterial POC (06/14/2024 [...] O RDERABLES [facility] [place] [address] * (ABNORMAL) Scan, Peripheral Blood (06/14/2024 11:23 AM EST) RBC Morphology Abnormal 06/14/2024 11:59 AM EST [facility] Platelet Estimate Decreased(A) Normal 06/14/2024 11:59 AM EST [facility] [place] cells 1-5 /HPF 06/14/2024 11:59 AM EST [facility] Blood ARTERIAL BLOOD / Unknown 06/14/2024 11:23 AM EST 06/14/2024 11:27 AM EST Bobby Loja MD HEMATOLOGY ORDERABLE S [facility] [place] [address] * (ABNORMAL) Platelet count (06/14/2024 11:23 AM EST) Platelet 86(L) 145 - 357 x10(3)/mcL 06/14/2024 11:59 AM EST [facility] Blood ARTERIAL BLOOD / Unknown 06/14/2024 11:23 AM EST Comment:Pre-op diagnosis: CAD Bobby Loja MD HEMATOLOGY ORDERABLE S [facility] [place] [address] * (ABNORMAL) Hemoglobin and Hematocrit, blood (06/14/2024 [...] ORDERABLE S [facility] [place] [address] * (ABNORMAL) Blood Gas, Arterial POC (06/14/2024 [...] O RDERABLES [facility] [place] [address] * (ABNORMAL) Blood Gas, Arterial POC (06/14/2024 10:26 AM EST) pH, Arterial 7.29(LLL) 7.35 - 7.45 06/14/2024 10:27 AM EST [facility] [...] O RDERABLES [facility] [place] [address] * (ABNORMAL) Blood Gas, Arterial POC (06/14/2024 [...] 0.5 - 2.2 mmol/L 06/14/2024 10:26 AM EST [facility] IONIZED CALCIUM, ARTERIAL 0.91(LLL) 1.15 - 1.33 mmol/L 06/14/2024 10:26 AM EST [facility] Glucose, Arterial 148 65 - 199 mg/dL 06/14/2024 10:26 AM EST [facility] Comment:Glucose Concentratio n >=200 mg/dL plus symptoms is consistent with Diabetes Mellitus. Blood ARTERIAL BLOOD / Unknown 06/14/2024 10:25 AM EST 06/14/2024 10:26 AM EST Haja Byrnes MD POINT OF CARE TEST O RDERABLES Performing Organization Address City/State/[facility] Co de Phone Number [facility] [place] [phone] * Surgical Pathology (06/14/2024 9:53 AM EST) Case Report Surgical Pathology Report ? Case: [id number] ? Authorizing Provider: ??Bobby Loja MD ? Collected: ? 06/14/2024 0953 ? Ordering Location: ? Main Operating Room Kristen ?? Received: ?06/14/2024 1413 ? [facility] ? [facility] ? Pathologist: ? Sandra Salas [...] Inking: External surface inked black Sections/Process ing: Supervisor [employer] sections in 4 cassettes labeled A1-A4. cmk B. Heart, Atrial Appendage, Left, . B - Labeled/Fixative : Heart, atrial appendage, left, fresh. Quantity/Size: Single, 3.3 x 1.5 x 0.8 cm. Tissue Description: Portion of heart tissue consisting of rodriguez-white, semitranslucent, smooth endocardium with rodriguez-brown muscular myocardium and thin translucent epicardium with adherent adipose tissue. No areas of discoloration identified. Sections/Process ing: Supervisor [employer] sections in 1 cassette labeled B1. cmk 06/18/2024 10:18 AM EST [facility] Result Note Routine 06/18/2024 10:18 AM [facility] Tissue SOFT TISSUE MASS / Unknown 06/14/2024 9:53 AM EST 06/14/2024 2:13 PM EST Comment:Mediastinal mass Tissue specimen (specimen) LEFT ATRIAL APPENDAGE ABSENT / Unknown 06/14/2024 10:54 AM EST 06/14/2024 2:13 PM EST Comment:MARIALUISA Bobby Loja MD PATHOLOGY/CYTOLOGY O RDERABLES [facility] [place] [address] * Cooximetry, POC (06/14/2024 9:00 AM EST) [...] O RDERABLES [facility] [place] [address] * (ABNORMAL) Blood Gas, Arterial POC (06/14/2024 [...] 3.5 - 5.0 mmol/L 06/14/2024 8:40 AM [facility] Chloride, Arterial 102 98 - 107 mmol/L 06/14/2024 8:40 AM [facility] Lactate, Arterial 0.9 0.5 - 2.2 mmol/L 06/14/2024 8:40 AM [facility] IONIZED CALCIUM, ARTERIAL 1.17 1.15 - 1.33 mmol/L 06/14/2024 8:40 AM [facility] Glucose, Arterial 121 65 - 199 mg/dL 06/14/2024 8:40 AM [facility] Comment:Glucose Concentratio n >=200 mg/dL plus symptoms is consistent with Diabetes Mellitus. Blood ARTERIAL BLOOD / Unknown 06/14/2024 8:39 AM EST 06/14/2024 8:40 AM EST Haja Byrnes MD POINT OF CARE TEST O RDERABLES Performing Organization Address City/State/[facility] Co de Phone Number [facility] [place] [phone] * Transesophageal Echo/OR (06/14/2024 7:20 AM EST) Anatomical Region Laterality Modality Cardiac Other 06/14/2024 7:20 AM EST Narrative 06/14/2024 4:36 PM EST Version: 2 Study ID: [id number] [address] [place] [address] ?OR Transesophageal Echo Report Name: GEORGE MEHTA ? Study Date: 06/14/2024, 7: 20 AM ?Patient Location: ^OR16^A : 1955 Age: 69 Years Gender: Male Ordering Physician: BOBBY LOJA Referring Physician: REBEL MUÑIZ ?Conclusions This KAREN is done at the [...] of this mass after consultation with other machine leather trimmer experts and the decision was made by [...] MD - 06/14/2024 Version: 2 Study ID: [id number] [address] [place] [id number] ORTransesophageal Echo Report Name: GEORGE MEHTA Study Date: 06/14/2024,7: 20 AM Patient Location:^OR16^A : 1955 Age: 69 Years Gender: Male Ordering Physician: BOBBY LOJA Referring Physician: REBEL MUÑIZ Conclusions This KAREN is done at the [...] of this mass after consultation with other machine leather trimmer experts and thedecision was made by surgeon [...] * POC, GLUCOSE (06/14/2024 7:11 AM EST) [facility] Glucometer, POC 111 65 - 199 mg/dL 06/14/2024 7:12 AM EST [facility] Comment:Supplemental ranges: <140 mg/dL before meals <180 mg/dL all other times of the day. Blood CAPILLARY BLOOD / Unknown 06/14/2024 7:11 AM EST 06/14/2024 7:12 AM EST Haja Byrnes MD POINT OF CARE TEST O RDERABLES [facility] [place] [address] * POC, GLUCOSE (06/14/2024 4:30 AM EST) Glucometer, POC 85 65 - 199 mg/dL 06/14/2024 4:30 AM EST [facility] Comment:Supplemental ranges: <140 mg/dL before meals <180 mg/dL all other times of the day. Blood CAPILLARY BLOOD / Unknown 06/14/2024 4:30 AM EST 06/14/2024 4:30 AM EST Haja Byrnes MD POINT OF CARE TEST O RDERABLES Performing Organization Address City/[facility]/ZIP Co de Phone Number [facility] [place] [address] * (ABNORMAL) Heparin (unfractionated) Level (06/14/2024 12:12 AM EST) [facility] UF Heparin 1.02(HHH) IU/mL 06/14/2024 12:46 AM EST [facility] MD HEMATOLOGY ORDERABLE S Performing Organization Address City/[facility]/ZIP Co de Phone Number [facility] [place] [address] * (ABNORMAL) CBC (with Diff) (06/14/2024 12:12 AM [facility]) White Blood Cell 10.51(H) 4.00 - 9.50 x10(3)/mc L 06/14/2024 12:38 AM [facility] Red Blood Cell 4.99 4.58 - 5.54 x10(6)/mc L 06/14/2024 12:38 AM [facility] Hemoglobin 14.9 13.7 - 16.5 g/dL 06/14/2024 12:38 AM [facility] Hematocrit 45.9 40.5 - 48.5 [...] - 0.90 x10(3)/mc L 06/14/2024 12:38 AM [facility] Eos % 3.9 % 06/14/2024 12:38 AM [facility] Eos Absolute 0.41(H) 0.00 - 0.40 x10(3)/mc L 06/14/2024 12:38 AM [facility] Basophil % 0.8 % 06/14/2024 [...] ORDERABLE S [facility] [place] [address] * Magnesium (06/14/2024 12:12 AM EST) Magnesium 0.74 0.69 - 1.07 mMol/L 06/14/2024 12:57 AM [facility] Blood VENOUS BLOOD SPECIMEN / Unknown Venipuncture / Unknown 06/14/2024 12:12 AM EST 06/14/2024 12:29 AM EST Shahnaz Scanlon MD CHEMISTRY ORDERABLES [facility] [place] [address] * (ABNORMAL) Basic Metabolic Panel (06/14/2024 12:12 [...] Scanlon MD CHEMISTRY ORDERABLES Performing Organization Address [facility] Co de Phone Number [facility] [place] [address] * Scan Doc: Implantable Devices (06/14/2024 12:00 [...] CARE TEST O RDERABLES Performing Organization Address [facility]/ZIP Co de Phone Number [facility] [place] [address] * (ABNORMAL) POC, GLUCOSE (06/13/2024 8:03 PM EST) Glucometer, POC 206(H) 65 - 199 mg/dL 06/13/2024 8:03 PM EST [facility] Comment:Supplemental ranges: <140 mg/dL before meals <180 mg/dL all other times of the day. Blood CAPILLARY BLOOD / Unknown 06/13/2024 8:03 PM EST 06/13/2024 8:03 PM EST Haja Byrnes MD POINT OF CARE TEST O RDERABLES Performing Organization Address [facility] Co de Phone Number [facility] [place] [address] * Heparin (unfractionated) Level (06/13/2024 4:11 PM [...] MD HEMATOLOGY ORDERABLE S Performing Organization Address [facility]/ZIP Co de Phone Number [facility] [place] [address] * ABORH RECHECK (06/13/2024 4:11 PM EST) ABORH Recheck O POSITIVE 06/13/2024 4:50 PM EST [facility] Blood VENOUS BLOOD SPECIMEN / Unknown Venipuncture / Unknown 06/13/2024 4:11 PM EST 06/13/2024 4:19 PM EST Haja Byrnes MD BLOOD BANK LAB ORDER [place] [facility] [place] [address] * (ABNORMAL) POC, GLUCOSE (06/13/2024 4:09 PM EST) [facility] Glucometer, POC 216(H) 65 - 199 mg/dL 06/13/2024 4:10 PM EST [facility] Comment:Supplemental ranges: <140 mg/dL before meals <180 mg/dL all other times of the day. Blood CAPILLARY BLOOD / Unknown 06/13/2024 4:09 PM EST 06/13/2024 4:10 PM EST Haja Byrnes MD POINT OF CARE TEST O RDERABLES Performing Organization Address City/[facility]/ZIP Co de Phone Number [facility] [place] [address] * Type and screen ([facility]/CGP/RAFITA) (06/13/2024 11:53 AM EST) ABORH Type O POSITIVE 06/13/2024 1:16 PM EST [facility] PATIENT HISTORY Not Found 06/13/2024 1:16 PM EST [facility] Expires at [id number] on: 06/16/2024 06/13/2024 1:16 PM EST [facility] ANTIBODY SCREEN AUTOMATED Negative 06/13/2024 1:16 PM EST [facility] T&S only valid at [facility] 06/13/2024 1:16 PM EST [facility] Blood VENOUS BLOOD SPECIMEN / Unknown Venipuncture / Unknown 06/13/2024 11:53 AM EST 06/13/2024 11:56 AM EST Narrative [facility] - 06/13/2024 1:16 PM EST This Type and Screen result is only valid at the [facility] Haja Byrnes MD BLOOD BANK LAB ORDER [place] Performing Organization Address City/[facility] Co de Phone Number [facility] [place] [address] * POC, GLUCOSE (06/13/2024 11:50 AM EST) Glucometer, POC 178 65 - 199 mg/dL 06/13/2024 11:51 AM EST [facility] Comment:Supplemental ranges: <140 mg/dL before meals <180 mg/dL all other times of the day. Blood CAPILLARY BLOOD / Unknown 06/13/2024 11:50 AM EST 06/13/2024 11:51 AM EST Haja Byrnes MD POINT OF CARE TEST O RDERABLES Performing Organization Address City/[facility]/ZIP Co de Phone Number [facility] [place] [address] * XR Chest One View (06/13/2024 10:35 AM EST) WORKSTATION ID [id number] [facility] Anatomical Region Laterality Modality Chest [...] who have questions please contact the health child care aide that requested your imaging first. ? Narrative [...] patients who have questions please contactthe health child care aide that requested your imaging first. Haja Byrnes MD IMG DX ORDERABLES * CARDIAC CATHETERIZATION (06/13/2024 9:02 AM EST) Anatomical Region Laterality Modality Other Narrative 06/15/2024 9:07 AM EST ?[facility] ? Cardiac Catheterization/Intervention Report ? Patient Name: George Mehta L. ? Procedure Date: 06/13/2024 ? A #: [id number] ? Primary Physician: Nuha Shen I ? Case #: [id number] ? File Name: [id number] ? Catheterization Order Number: [id number] ? [facility] ? Final Report [place], [place] ? Patient Name: ? George L. Tyson ? ID#: ?[id number] ? : ?1955 ? Procedure Date: ? June 13, 2024 ?Case #: ? [id number] ? Room: ? 6 ? Case Physician: ? Nuha Shen M.D. ? Start: ?09:20 ?Fellow: ? Stefano L Kashif, P.A. ? Admission: ??06/02/2024 ? Referring Physician: ??Junaid [...] ?was designated as ASA Class IV. The [facility] clinical frailty scale is 5: ?Mildly [...] procedure was Urgent. The indication for ?the labview programmer visit is ACS greater than 24 hrs [...] angiography, vascular ?ultrasound and IABP insertion in labview programmer. ? Nuha Shen M.D. ? Electronically Signed by: Nuha Shen M.D. ? Report Finalized: 06/15/2024 ??08:59 ? Procedure Note Nuha Shen MD - 06/15/2024 [facility] Cardiac Catheterization/Intervention Report Patient Name: George Mehta Procedure Date: 06/13/2024 A #: [id number] Primary Physician: Nuha Shen I Case #: [id number] File Name: [id number] Catheterization Order Number: [id number] [facility] FinalReport [place], [place] Patient Name: George Mehta ID#:[id number] :1955 Procedure Date: June 13, 2024 Case #: [id number] Room: 6 Case Physician: Nuha Shen M.D. Start: 09:20 Fellow: Junaid Tellez Admission:06/02/2024 Referring Physician: Rebel R Muñiz, P.A. Procedures: * Intra-Aortic Balloon Pump (IABP) Insertion [...] was designated as ASA Class IV. The [facility] clinical frailty scale is5: Mildly Frail. [...] diagnostic procedure was Urgent. The indicationfor the labview programmer visit is ACS greater than 24 hrs [...] site angiography,vascular ultrasound and IABP insertion in labview programmer. Nuha Shen M.D. Electronically Signed by: Nuha [...] CHEMISTRY ORDERABLES [facility] [place] [address] * POC, GLUCOSE (06/13/2024 7:41 AM EST) Glucometer, POC 126 65 - 199 mg/dL 06/13/2024 7:41 AM EST [facility] Comment:Supplemental ranges: <140 mg/dL before meals <180 mg/dL all other times of the day. Blood CAPILLARY BLOOD / Unknown 06/13/2024 7:41 AM EST 06/13/2024 7:41 AM EST Ethel Carrillo MD POINT OF CARE TEST O NIKA Performing Organization Address [facility] de Phone Number [facility] [place] [address] * POC, GLUCOSE (06/13/2024 3:25 AM EST) [facility] Glucometer, POC 99 65 - 199 mg/dL 06/13/2024 3:25 AM EST [facility] Comment:Supplemental ranges: <140 mg/dL before meals <180 mg/dL all other times of the day. Blood CAPILLARY BLOOD / Unknown 06/13/2024 3:25 AM EST 06/13/2024 3:25 AM EST Ethel Carrillo MD POINT OF CARE TEST Abimael MAHER Performing Organization Address [facility] Co de Phone Number [facility] [place] [address] * Heparin (unfractionated) Level (06/13/2024 2:26 AM EST) Pathologist [facility] UF Heparin 0.60 IU/mL 06/13/2024 3:32 AM [...] ORDERABLE S [facility] [place] [address] * (ABNORMAL) CBC (with Diff) (06/13/2024 2:26 AM EST) White Blood Cell 9.98(H) 4.00 - 9.50 x10(3)/mc L 06/13/2024 2:41 AM EST [facility] Red Blood Cell 5.11 4.58 - 5.54 x10(6)/mc L 06/13/2024 2:41 AM EST [facility] Hemoglobin 15.3 13.7 - 16.5 g/dL 06/13/2024 2:41 AM EST [facility] Hematocrit 47.1 40.5 - 48.5 % 06/13/2024 2:41 AM EST [facility] Mean Cell Volume 92.2 82.9 - 93.1 fL 06/13/2024 2:41 AM EST [facility] Mean Cell Hemoglobin 29.9 [...] Basophil % 0.9 % 06/13/2024 2:41 AM EST [facility] Baso Absolute 0.09 0.00 - 0.10 x10(3)/mc L 06/13/2024 2:41 AM EST [facility] Immature Gran % 0.5 % 2:41 AM EST [facility] Immature Gran Absolute 0.05(H) 0.00 - 0.04 x10(3)/mc L 06/13/2024 2:41 AM EST [facility] Blood VENOUS BLOOD SPECIMEN / Unknown Venipuncture / Unknown 06/13/2024 2:26 AM EST 06/13/2024 2:32 AM EST Shahnaz Scanlon MD HEMATOLOGY ORDERABLE S Performing Organization Address City/[facility]/ZIP Co de Phone Number [facility] [place] [address] * Magnesium (06/13/2024 2:26 AM EST) Magnesium 0.78 0.69 - 1.07 mMol/L 06/13/2024 2:58 AM EST [facility] Blood VENOUS BLOOD SPECIMEN / Unknown Venipuncture / Unknown 06/13/2024 2:26 AM EST 06/13/2024 2:31 AM EST Shahnaz Scanlon MD CHEMISTRY ORDERABLES [facility] [place] [address] * (ABNORMAL) Basic Metabolic Panel (06/13/2024 2:26 AM EST) Glucose 121 65 - 199 mg/dL 06/13/2024 2:58 AM EST [facility] Comment:Glucose Concentratio n >=200 mg/dL plus symptoms is consistent with Diabetes Mellitus. Blood Urea Nitrogen 21(H) 10 - 20 mg/dL 06/13/2024 2:58 AM EST [facility] Creatinine 1.07 0.80 - 1.50 mg/dL 06/13/2024 2:58 AM EST [facility] [...] 5 - 15 mMol/L 06/13/2024 2:58 AM [facility] Calcium 9.7 8.5 - 10.5 mg/dL 06/13/2024 2:58 AM [facility] Est Glomerular Filtration Rate - Male 76 mL/min/1. 73 m?? 06/13/2024 2:58 AM [facility] Comment: [...] CHEMISTRY ORDERABLES [facility] [place] [address] * POC, GLUCOSE (06/12/2024 11:53 PM EST) [employer] Signature Glucometer, POC 141 65 - 199 mg/dL 06/12/2024 11:54 PM EST [facility] Comment:Supplemental ranges: <140 mg/dL before meals <180 mg/dL all other times of the day. Blood CAPILLARY BLOOD / Unknown 06/12/2024 11:53 PM EST 06/12/2024 11:54 PM EST Ethel Carrillo MD POINT OF CARE TEST O NIKA Performing Organization Address [facility] Co de Phone Number [facility] [place] [address] * POC, GLUCOSE (06/12/2024 7:32 PM EST) Glucometer, POC 158 65 - 199 mg/dL 06/12/2024 7:32 PM EST [facility] Comment:Supplemental ranges: <140 mg/dL before meals <180 mg/dL all other times of the day. Blood CAPILLARY BLOOD / Unknown 06/12/2024 7:32 PM EST 06/12/2024 7:32 PM EST Ethel Carrillo MD POINT OF CARE TEST O NIKA Performing Organization Address [facility] Co de Phone Number [facility] [place] [address] * POC, GLUCOSE (06/12/2024 3:41 PM EST) Glucometer, POC 113 65 - 199 mg/dL 06/12/2024 3:41 PM EST [facility] Comment:Supplemental ranges: <140 mg/dL before meals <180 mg/dL all other times of the day. Blood CAPILLARY BLOOD / Unknown 06/12/2024 3:41 PM EST 06/12/2024 3:41 PM EST Ethel Carrillo MD POINT OF CARE TEST O NIKA Performing Organization Address City/[facility] Co de Phone Number [facility] [place] [address] * Potassium (06/12/2024 2:19 PM EST) Potassium 4.5 3.5 - 5.0 mMol/L 06/12/2024 2:45 PM EST [facility] Blood VENOUS BLOOD SPECIMEN / Unknown Venipuncture / Unknown 06/12/2024 2:19 PM EST 06/12/2024 2:23 PM EST Shahnaz Scanlon MD CHEMISTRY ORDERABLES [facility] [place] [address] * (ABNORMAL) POC, GLUCOSE (06/12/2024 11:21 AM EST) Glucometer, POC 207(H) 65 - 199 mg/dL 06/12/2024 11:21 AM EST [facility] Comment:Supplemental ranges: <140 mg/dL before meals <180 mg/dL all other times of the day. Blood CAPILLARY BLOOD / Unknown 06/12/2024 11:21 AM EST 06/12/2024 11:22 AM EST Ethel Carrillo MD POINT OF CARE TEST O RDERABLES Performing Organization Address City/[facility]/ZIP Co de Phone Number [facility] [place] [address] * POC, GLUCOSE (06/12/2024 8:00 AM EST) Glucometer, POC 169 65 - 199 mg/dL 06/12/2024 8:01 AM EST [facility] Comment:Supplemental ranges: <140 mg/dL before meals <180 mg/dL all other times of the day. Blood CAPILLARY BLOOD / Unknown 06/12/2024 8:00 AM EST 06/12/2024 8:01 AM EST Ethel Carrlilo MD POINT OF CARE TEST O RDERAPIETER [facility] [place] [address] * POC, GLUCOSE (06/12/2024 4:25 AM EST) Glucometer, POC 132 65 - 199 mg/dL 06/12/2024 4:26 AM EST [facility] Comment:Supplemental ranges: <140 mg/dL before meals <180 mg/dL all other times of the day. Blood CAPILLARY BLOOD / Unknown 06/12/2024 4:25 AM EST 06/12/2024 4:26 AM EST Ethel Carrillo MD POINT OF CARE TEST O RDERABLES Performing Organization Address [facility] de Phone Number [facility] [place] [address] * Heparin (unfractionated) Level (06/12/2024 3:03 AM [...] MD HEMATOLOGY ORDERABLE S Performing Organization Address [facility]/ZIP Co de Phone Number [facility] [place] [address] * (ABNORMAL) CBC (with Diff) (06/12/2024 3:03 AM EST) White Blood Cell 9.69(H) 4.00 - 9.50 x10(3)/mc L 06/12/2024 3:36 AM [facility] Red Blood Cell 5.05 4.58 - 5.54 x10(6)/mc L 06/12/2024 3:36 AM [facility] Hemoglobin 15.2 13.7 - 16.5 [...] ORDERABLE S [facility] [place] [address] * Magnesium (06/12/2024 3:03 AM EST) Magnesium 0.79 0.69 - 1.07 mMol/L 06/12/2024 4:01 AM [facility] Blood VENOUS BLOOD SPECIMEN / Unknown Venipuncture / Unknown 06/12/2024 3:03 AM EST 06/12/2024 3:30 AM EST Shahnaz Scanlon MD CHEMISTRY ORDERABLES [facility] [place] [address] * (ABNORMAL) Basic Metabolic Panel (06/12/2024 3:03 [...] 70 mL/min/1. 73 m?? 06/12/2024 4:01 AM EST [facility] [...] Scanlon MD CHEMISTRY ORDERABLES Performing Organization Address City/[facility]/ZIP Co de Phone Number [facility] [place] [address] * POC, GLUCOSE (06/11/2024 11:56 PM EST) Glucometer, POC 135 65 - 199 mg/dL 06/11/2024 11:56 PM EST [facility] Comment:Supplemental ranges: <140 mg/dL before meals <180 mg/dL all other times of the day. Blood CAPILLARY BLOOD / Unknown 06/11/2024 11:56 PM EST 06/11/2024 11:56 PM EST Ethel Carrillo MD POINT OF CARE TEST O RDERABLES Performing Organization Address City/[facility]/ZIP Co de Phone Number [facility] [place] [address] * (ABNORMAL) POC, GLUCOSE (06/11/2024 8:25 PM EST) Glucometer, POC 210(H) 65 - 199 mg/dL 06/11/2024 8:26 PM EST [facility] Comment:Supplemental ranges: <140 mg/dL before meals <180 mg/dL all other times of the day. Blood CAPILLARY BLOOD / Unknown 06/11/2024 8:25 PM EST 06/11/2024 8:26 PM EST Ethel Carrillo MD POINT OF CARE TEST O NIKA Performing Organization Address [facility] Co de Phone Number [facility] [place] [address] * POC, GLUCOSE (06/11/2024 4:24 PM EST) Glucometer, POC 81 65 - 199 mg/dL 06/11/2024 4:24 PM EST [facility] Comment:Supplemental ranges: <140 mg/dL before meals <180 mg/dL all other times of the day. Blood CAPILLARY BLOOD / Unknown 06/11/2024 4:24 PM EST 06/11/2024 4:25 PM EST Ethel Carrillo MD POINT OF CARE TEST O NIKA Performing Organization Address [facility] de Phone Number [facility] [place] [address] * (ABNORMAL) POC, GLUCOSE (06/11/2024 11:08 AM EST) Glucometer, POC 233(H) 65 - 199 mg/dL 06/11/2024 11:08 AM EST [facility] Comment:Supplemental ranges: <140 mg/dL before meals <180 mg/dL all other times of the day. Blood CAPILLARY BLOOD / Unknown 06/11/2024 11:08 AM EST 06/11/2024 11:08 AM EST Ethel Carrillo MD POINT OF CARE TEST O NIKA Performing Organization Address [facility] Co de Phone Number [facility] [place] [address] * POC, GLUCOSE (06/11/2024 7:48 AM EST) Glucometer, POC 184 65 - 199 mg/dL 06/11/2024 7:49 AM EST [facility] Comment:Supplemental ranges: <140 mg/dL before meals <180 mg/dL all other times of the day. Blood CAPILLARY BLOOD / Unknown 06/11/2024 7:48 AM EST 06/11/2024 7:49 AM EST Melida Valdes MD POINT OF CARE TEST O RDERABLES Performing Organization Address [facility] Co de Phone Number [facility] [place] [address] * Heparin (unfractionated) Level (06/11/2024 5:31 AM [...] 5:31 AM EST 06/11/2024 5:40 AM EST Shahnza Scanlon MD HEMATOLOGY ORDERABLE S Performing Organization Address [facility] Co de Phone Number [facility] [place] [address] * POC, GLUCOSE (06/11/2024 3:57 AM EST) Glucometer, POC 132 65 - 199 mg/dL 06/11/2024 3:58 AM [facility] Comment:Supplemental ranges: <140 mg/dL before meals <180 mg/dL all other times of the day. Blood CAPILLARY BLOOD / Unknown 06/11/2024 3:57 AM EST 06/11/2024 3:58 AM EST Melida Valdes MD POINT OF CARE TEST O RDERABLES [facility] [place] [address] * (ABNORMAL) CBC (with Diff) (06/11/2024 2:13 AM EST) [facility] White Blood Cell 9.91(H) 4.00 - 9.50 [...] - 0.40 x10(3)/mc L 06/11/2024 2:26 AM [facility] Basophil % 0.7 % 06/11/2024 2:26 AM [facility] Baso Absolute 0.07 0.00 - 0.10 x10(3)/mc L 06/11/2024 2:26 AM [facility] Immature Gran % 0.5 % 2:26 AM [facility] Immature Gran Absolute 0.05(H) 0.00 - 0.04 x10(3)/mc L 06/11/2024 2:26 AM EST [facility] Blood VENOUS BLOOD SPECIMEN / Unknown Venipuncture / Unknown 06/11/2024 2:13 AM EST 06/11/2024 2:19 AM EST Shahnaz Scanlon MD HEMATOLOGY ORDERABLE S Performing Organization Address [facility] Co de Phone Number [facility] [place] [address] * Magnesium (06/11/2024 2:13 AM EST) Magnesium 0.83 0.69 - 1.07 mMol/L 06/11/2024 2:51 AM EST [facility] Blood VENOUS BLOOD SPECIMEN / Unknown Venipuncture / Unknown 06/11/2024 2:13 AM EST 06/11/2024 2:19 AM EST Shahnaz Scanlon MD CHEMISTRY ORDERABLES Performing Organization Address [facility] Co de Phone Number [facility] [place] [address] * (ABNORMAL) Basic Metabolic Panel (06/11/2024 2:13 AM EST) Glucose 148 65 - 199 mg/dL 06/11/2024 2:51 AM EST [facility] Comment:Glucose Concentratio n >=200 mg/dL plus symptoms is consistent with Diabetes Mellitus. Blood Urea Nitrogen 24(H) 10 - 20 mg/dL 06/11/2024 2:51 AM EST [facility] Creatinine 1.06 0.80 - 1.50 mg/dL 06/11/2024 2:51 AM EST [facility] Sodium 134(L) 135 - 145 mMol/L 06/11/2024 2:51 AM EST [facility] Potassium 4.1 3.5 - 5.0 mMol/L 06/11/2024 2:51 AM EST [facility] Chloride 96(L) 98 - 107 mMol/L 06/11/2024 2:51 AM [facility] Carbon Dioxide 28 22 - 31 mMol/L 06/11/2024 2:51 AM [facility] Anion Gap 10 5 - 15 mMol/L 06/11/2024 2:51 AM [facility] Calcium 9.4 8.5 - 10.5 mg/dL 06/11/2024 2:51 AM [facility] Est Glomerular Filtration Rate - Male 77 mL/min/1. 73 m?? 06/11/2024 2:51 AM [facility] Comment: [...] CHEMISTRY ORDERABLES [facility] [place] [address] * POC, GLUCOSE (06/11/2024 12:50 AM EST) [employer] Signature Glucometer, POC 144 65 - 199 mg/dL 06/11/2024 12:51 AM [facility] Comment:Supplemental ranges: <140 mg/dL before meals <180 mg/dL all other times of the day. Blood CAPILLARY BLOOD / Unknown 06/11/2024 12:50 AM EST 06/11/2024 12:51 AM EST Melida Valdes MD POINT OF CARE TEST O RDBECKIE Performing Organization Address City/[facility]/ZIP Co de Phone Number [facility] [place] [address] * (ABNORMAL) POC, GLUCOSE (06/10/2024 7:22 PM EST) Glucometer, POC 236(H) 65 - 199 mg/dL 06/10/2024 7:22 PM EST [facility] Comment:Supplemental ranges: <140 mg/dL before meals <180 mg/dL all other times of the day. Blood CAPILLARY BLOOD / Unknown 06/10/2024 7:22 PM EST 06/10/2024 7:22 PM EST Melida Valdes MD POINT OF CARE TEST O NIKA Performing Organization Address [facility] Co de Phone Number [facility] [place] [address] * (ABNORMAL) Blood Gas, Venous (06/10/2024 5:42 PM EST) pH, Venous 7.34 7.32 - 7.42 06/10/2024 5:50 PM EST [facility] PCO2, Venous 52 38 - 58 mmHg 06/10/2024 5:50 PM EST [facility] PO2, Venous 24 16 - 65 mmHg 06/10/2024 5:50 PM [facility] Bicarbonate, Venous 27.4 22 - 31 mmol/L 06/10/2024 5:50 PM [facility] Base Excess, Venous 1.7(L) 1.9 - 4.5 mmol/L 06/10/2024 5:50 PM EST [facility] Hemoglobin, Venous 16.8(H) 13.7 [...] PM EST Melida Valdes MD CHEMISTRY ORDERABLES [facility] [place] [address] * POC, GLUCOSE (06/10/2024 5:35 PM EST) [employer] Signature Glucometer, POC 123 65 - 199 mg/dL 06/10/2024 5:35 PM [facility] Comment:Supplemental ranges: <140 mg/dL before meals <180 mg/dL all other times of the day. Blood CAPILLARY BLOOD / Unknown 06/10/2024 5:35 PM EST 06/10/2024 5:35 PM EST Melida Valdes MD POINT OF CARE TEST O NIKA Performing Organization Address [facility] Co de Phone Number [facility] [place] [address] * (ABNORMAL) POC, GLUCOSE (06/10/2024 11:25 AM EST) Glucometer, POC 216(H) 65 - 199 mg/dL 06/10/2024 11:25 AM EST [facility] Comment:Supplemental ranges: <140 mg/dL before meals <180 mg/dL all other times of the day. Blood CAPILLARY BLOOD / Unknown 06/10/2024 11:25 AM EST 06/10/2024 11:25 AM EST Melida Valdes MD POINT OF CARE TEST O RDERAPIETER Performing Organization Address [facility] Co de Phone Number [facility] [place] [address] * (ABNORMAL) POC, GLUCOSE (06/10/2024 7:46 AM EST) Glucometer, POC 206(H) 65 - 199 mg/dL 06/10/2024 7:46 AM EST [facility] Comment:Supplemental ranges: <140 mg/dL before meals <180 mg/dL all other times of the day. Blood CAPILLARY BLOOD / Unknown 06/10/2024 7:46 AM EST 06/10/2024 7:46 AM EST Melida Valdes MD POINT OF CARE TEST O RDERAPIETER Performing Organization Address City/[facility]/ZIP Co de Phone Number [facility] [place] [address] * POC, GLUCOSE (06/10/2024 4:23 AM EST) Pathologist [facility] Glucometer, POC 154 65 - 199 mg/dL 06/10/2024 4:24 AM EST [facility] Comment:Supplemental ranges: <140 mg/dL before meals <180 mg/dL all other times of the day. Blood CAPILLARY BLOOD / Unknown 06/10/2024 4:23 AM EST 06/10/2024 4:24 AM EST Melida Valdes MD POINT OF CARE TEST O RDERABLES [facility] [place] [address] * (ABNORMAL) CBC (with Diff) (06/10/2024 1:55 AM EST) [facility] White Blood Cell 9.00 4.00 - 9.50 [...] - 0.04 x10(3)/mc L 06/10/2024 2:14 AM EST [facility] Blood VENOUS BLOOD SPECIMEN / Unknown Venipuncture / Unknown 06/10/2024 1:55 AM EST 06/10/2024 2:05 AM EST Shahnaz Scanlon MD HEMATOLOGY ORDERABLE S Performing Organization Address [facility] Co de Phone Number [facility] [place] [address] * Magnesium (06/10/2024 1:55 AM EST) Magnesium 0.83 0.69 - 1.07 mMol/L 06/10/2024 2:37 AM [facility] Blood VENOUS BLOOD SPECIMEN / Unknown Venipuncture / Unknown 06/10/2024 1:55 AM EST 06/10/2024 2:05 AM EST Shahnaz Scanlon MD CHEMISTRY ORDERABLES Performing Organization Address [facility] Co de Phone Number [facility] [place] [address] * (ABNORMAL) Basic Metabolic Panel (06/10/2024 1:55 AM EST) Glucose 140 65 - 199 mg/dL 06/10/2024 2:37 AM EST [facility] [...] 98 - 107 mMol/L 06/10/2024 2:37 AM EST [facility] Carbon Dioxide 25 22 - 31 mMol/L 06/10/2024 2:37 AM EST [facility] Anion Gap 13 5 - 15 mMol/L 06/10/2024 2:37 AM EST [facility] Calcium 9.5 8.5 - 10.5 mg/dL 06/10/2024 2:37 AM EST [facility] Est Glomerular Filtration Rate - Male 77 mL/min/1. 73 m?? 06/10/2024 2:37 AM EST [facility] [...] Scanlon MD CHEMISTRY ORDERABLES Performing Organization Address City/State/[facility] Co de Phone Number [facility] [place] [address] * Heparin (unfractionated) Level (06/10/2024 1:54 AM [...] MD HEMATOLOGY ORDERABLE S Performing Organization Address [facility] Co de Phone Number [facility] [place] [address] * POC, GLUCOSE (06/10/2024 12:05 AM EST) Glucometer, POC 125 65 - 199 mg/dL 06/10/2024 12:05 AM EST [facility] Comment:Supplemental ranges: <140 mg/dL before meals <180 mg/dL all other times of the day. Blood CAPILLARY BLOOD / Unknown 06/10/2024 12:05 AM EST 06/10/2024 12:05 AM EST Melida Valdes MD POINT OF CARE TEST O RDERABLES Performing Organization Address [facility]/ZIP Co de Phone Number [facility] [place] [address] * POC, GLUCOSE (06/09/2024 8:36 PM EST) Glucometer, POC 197 65 - 199 mg/dL 06/09/2024 8:36 PM EST [facility] Comment:Supplemental ranges: <140 mg/dL before meals <180 mg/dL all other times of the day. Blood CAPILLARY BLOOD / Unknown 06/09/2024 8:36 PM EST 06/09/2024 8:36 PM EST Melida Valdes MD POINT OF CARE TEST O NIKA Performing Organization Address [facility] Co de Phone Number [facility] [place] [address] * POC, GLUCOSE (06/09/2024 5:27 PM EST) [...] O NIKA Performing Organization Address [facility] Phone Number [facility] [place] [address] * (ABNORMAL) POC, GLUCOSE (06/09/2024 11:52 AM EST) Glucometer, POC 211(H) 65 - 199 mg/dL 06/09/2024 11:52 AM EST [facility] Comment:Supplemental ranges: <140 mg/dL before meals <180 mg/dL all other times of the day. Blood CAPILLARY BLOOD / Unknown 06/09/2024 11:52 AM EST 06/09/2024 11:52 AM EST Melida Valdes MD POINT OF CARE TEST O NIKA Performing Organization Address [facility] Co de Phone Number [facility] [place] [address] * Potassium (06/09/2024 8:25 AM EST) Potassium 4.6 3.5 - 5.0 mMol/L 06/09/2024 10:09 AM EST [facility] Blood VENOUS BLOOD SPECIMEN / Unknown Venipuncture / Unknown 06/09/2024 8:25 AM EST 06/09/2024 8:42 AM EST Shahnaz Scanlon MD CHEMISTRY ORDERABLES Performing Organization Address [facility] Co de Phone Number [facility] [place] [address] * (ABNORMAL) POC, GLUCOSE (06/09/2024 8:10 AM EST) Glucometer, POC 209(H) 65 - 199 mg/dL 06/09/2024 8:10 AM EST [facility] Comment:Supplemental ranges: <140 mg/dL before meals <180 mg/dL all other times of the day. Blood CAPILLARY BLOOD / Unknown 06/09/2024 8:10 AM EST 06/09/2024 8:11 AM EST Melida Valdes MD POINT OF CARE TEST O NIKA Performing Organization Address [facility] de Phone Number [facility] [place] [address] * POC, GLUCOSE (06/09/2024 4:40 AM EST) Glucometer, POC 131 65 - 199 mg/dL 06/09/2024 4:40 AM EST [facility] Comment:Supplemental ranges: <140 mg/dL before meals <180 mg/dL all other times of the day. Blood CAPILLARY BLOOD / Unknown 06/09/2024 4:40 AM EST 06/09/2024 4:41 AM EST Melida Valdes MD POINT OF CARE TEST O NIKA Performing Organization Address [facility] Co de Phone Number [facility] [place] [address] * Heparin (unfractionated) Level (06/09/2024 2:12 AM EST) UF Heparin 0.55 IU/mL 06/09/2024 2:33 AM [facility] Comment: Heparin (anti-Xa) levels should [...] ORDERABLE S [facility] [place] [address] * (ABNORMAL) CBC (with Diff) (06/09/2024 2:12 [...] - 0.40 x10(3)/mc L 06/09/2024 2:44 AM EST [facility] Basophil % 0.9 % 06/09/2024 2:44 AM EST [facility] Baso Absolute 0.09 0.00 - 0.10 x10(3)/mc L 06/09/2024 2:44 AM EST [facility] Immature Gran % 0.6 % 2:44 AM EST [facility] Immature Gran Absolute 0.06(H) 0.00 - 0.04 x10(3)/mc L 06/09/2024 2:44 AM EST [facility] Blood VENOUS BLOOD SPECIMEN / Unknown Venipuncture / Unknown 06/09/2024 2:12 AM EST 06/09/2024 2:21 AM EST Shahnaz Scanlon MD HEMATOLOGY ORDERABLE S [facility] [place] [address] * Magnesium (06/09/2024 2:12 AM EST) Magnesium 0.83 0.69 - 1.07 mMol/L 06/09/2024 2:52 AM EST [facility] Blood VENOUS BLOOD SPECIMEN / Unknown Venipuncture / Unknown 06/09/2024 2:12 AM EST 06/09/2024 2:22 AM EST Shahnaz Scanlon MD CHEMISTRY ORDERABLES [facility] [place] [address] * (ABNORMAL) Basic Metabolic Panel (06/09/2024 2:12 AM EST) Glucose 147 65 - 199 mg/dL 06/09/2024 2:52 AM EST [facility] - 5.0 mMol/L 06/09/2024 2:52 AM EST [facility] Chloride 98 98 - [...] CHEMISTRY ORDERABLES [facility] [place] [address] * POC, GLUCOSE (06/09/2024 12:34 AM EST) Glucometer, POC 186 65 - 199 mg/dL 06/09/2024 12:34 AM EST [facility] Comment:Supplemental ranges: <140 mg/dL before meals <180 mg/dL all other times of the day. Blood CAPILLARY BLOOD / Unknown 06/09/2024 12:34 AM EST 06/09/2024 12:34 AM EST Melida Valdes MD POINT OF CARE TEST O NIKA Performing Organization Address [facility]/ZIP Co de Phone Number [facility] [place] [address] * POC, GLUCOSE (06/08/2024 8:27 PM EST) Glucometer, POC 176 65 - 199 mg/dL 06/08/2024 8:28 PM EST [facility] Comment:Supplemental ranges: <140 mg/dL before meals <180 mg/dL all other times of the day. Blood CAPILLARY BLOOD / Unknown 06/08/2024 8:27 PM EST 06/08/2024 8:28 PM EST Melida Valdes MD POINT OF CARE TEST O NIKA Performing Organization Address [facility]/ZIP Co de Phone Number [facility] [place] [address] * POC, GLUCOSE (06/08/2024 4:16 PM EST) Glucometer, POC 159 65 - 199 mg/dL 06/08/2024 4:16 PM EST [facility] Comment:Supplemental ranges: <140 mg/dL before meals <180 mg/dL all other times of the day. Blood CAPILLARY BLOOD / Unknown 06/08/2024 4:16 PM EST 06/08/2024 4:16 PM EST Melida Valdes MD POINT OF CARE TEST O NIKA Performing Organization Address City/State/[facility] Co de Phone Number [facility] [place] [address] * (ABNORMAL) POC, GLUCOSE (06/08/2024 12:35 PM EST) Glucometer, POC 226(H) 65 - 199 mg/dL 06/08/2024 12:35 PM EST [facility] Comment:Supplemental ranges: <140 mg/dL before meals <180 mg/dL all other times of the day. Blood CAPILLARY BLOOD / Unknown 06/08/2024 12:35 PM EST 06/08/2024 12:35 PM EST Melida Valdes MD POINT OF CARE TEST O NIKA Performing Organization Address [facility] de Phone Number [facility] [place] [address] * POC, GLUCOSE (06/08/2024 8:10 AM EST) Glucometer, POC 190 65 - 199 mg/dL 06/08/2024 8:14 AM EST [facility] Comment:Supplemental ranges: <140 mg/dL before meals <180 mg/dL all other times of the day. Blood CAPILLARY BLOOD / Unknown 06/08/2024 8:10 AM EST 06/08/2024 8:14 AM EST Melida Valdes MD POINT OF CARE TEST O RDERAPIETER Performing Organization Address City/[facility] Co de Phone Number [facility] [place] [address] * POC, GLUCOSE (06/08/2024 4:09 AM EST) Glucometer, POC 151 65 - 199 mg/dL 06/08/2024 4:10 AM EST [facility] Comment:Supplemental ranges: <140 mg/dL before meals <180 mg/dL all other times of the day. Blood CAPILLARY BLOOD / Unknown 06/08/2024 4:09 AM EST 06/08/2024 4:10 AM EST Melida Valdes MD POINT OF CARE TEST O RDERABLES Performing Organization Address [facility] Co de Phone Number [facility] [place] [address] * Heparin (unfractionated) Level (06/08/2024 3:21 AM [...] MD HEMATOLOGY ORDERABLE S Performing Organization Address [facility]/ZIP Co de Phone Number [facility] [place] [address] * (ABNORMAL) CBC (with Diff) (06/08/2024 3:21 AM EST) White Blood Cell 9.92(H) 4.00 - 9.50 x10(3)/mc L 06/08/2024 3:34 AM EST [facility] Red Blood Cell 5.09 4.58 - 5.54 x10(6)/mc L 06/08/2024 3:34 AM [facility] Hemoglobin 15.1 13.7 - 16.5 [...] - 0.10 x10(3)/mc L 06/08/2024 3:34 AM [facility] [...] MD HEMATOLOGY ORDERABLE S Performing Organization Address City/State/[facility] Co de Phone Number [facility] [place] [address] * Magnesium (06/08/2024 3:21 AM EST) Magnesium 0.84 0.69 - 1.07 mMol/L 06/08/2024 3:59 AM [facility] Blood VENOUS BLOOD SPECIMEN / Unknown Venipuncture / Unknown 06/08/2024 3:21 AM EST 06/08/2024 3:27 AM EST Shahnaz Scanlon MD CHEMISTRY ORDERABLES [facility] [place] [address] * (ABNORMAL) Basic Metabolic Panel (06/08/2024 3:21 AM EST) Glucose 173 65 - 199 mg/dL 06/08/2024 3:59 AM EST [facility] 3.5 - 5.0 mMol/L 06/08/2024 3:59 AM EST [facility] Chloride 98 98 - [...] CHEMISTRY ORDERABLES [facility] [place] [address] * POC, GLUCOSE (06/07/2024 11:57 PM EST) Glucometer, POC 188 65 - 199 mg/dL 06/07/2024 11:57 PM EST [facility] Comment:Supplemental ranges: <140 mg/dL before meals <180 mg/dL all other times of the day. Blood CAPILLARY BLOOD / Unknown 06/07/2024 11:57 PM EST 06/07/2024 11:58 PM EST Melida Valdes MD POINT OF CARE TEST O RDBECKIE Performing Organization Address City/[facility]/ZIP Co de Phone Number [facility] [place] [address] * POC, GLUCOSE (06/07/2024 8:05 PM EST) [...] O RDERAPIETER [facility] [place] [address] * Potassium (06/07/2024 5:22 PM EST) Potassium 4.6 3.5 - 5.0 mMol/L 06/07/2024 5:59 PM EST [facility] Blood VENOUS BLOOD SPECIMEN / Unknown Venipuncture / Unknown 06/07/2024 5:22 PM EST 06/07/2024 5:26 PM EST Shahnaz Scanlon MD CHEMISTRY ORDERABLES Performing Organization Address [facility] Co de Phone Number [facility] [place] [address] * POC, GLUCOSE (06/07/2024 4:31 PM EST) Pathologist [facility] Glucometer, POC 174 65 - 199 mg/dL 06/07/2024 4:34 PM EST [facility] Comment:Supplemental ranges: <140 mg/dL before meals <180 mg/dL all other times of the day. Blood CAPILLARY BLOOD / Unknown 06/07/2024 4:31 PM EST 06/07/2024 4:34 PM EST Melida Valdes MD POINT OF CARE TEST O RDERABLES Performing Organization Address [facility] de Phone Number [facility] [place] [address] * MRI Cardiac Morphology Function wwo Contrast (06/07/2024 1:10 PM EST) Pathologist [facility] WORKSTATION ID [id number] [facility] Anatomical Region Laterality Modality Magnetic [...] - Mildly dilated left ventricle size with qeyqtvwo-ab-rhnkfhly decreased LV systolic function. ??LV ejection fraction [...] who have questions please contact the health child care aide that requested your imaging first. ? Narrative [...] VENTRICLE: Mildly dilated left ventricle size with fichhiuj-qy-fvfwfxqa decreased LV systolic function. ??LV ejection fraction [...] VENTRICLE: Mildly dilated left ventricle size with jaerzjff-yl-pqqaahxl decreasedLV systolic function. LV ejection fraction is [...] - Mildly dilated left ventricle size with rzffxmdw-ib-kacwvada decreasedLV systolic function. LV ejection fraction is [...] patients who have questions please contactthe health child care aide that requested your imaging first. Delroy Fofana [...] CARE TEST O NIKA Performing Organization Address City/[facility]/ZIP Co de Phone Number [facility] [place] [address] * (ABNORMAL) POC, GLUCOSE (06/07/2024 11:03 AM [...] O NIKA [facility] [place] [address] * Potassium (06/07/2024 9:44 AM EST) Pathologist [facility] Potassium 4.7 3.5 - 5.0 mMol/L 06/07/2024 10:23 AM EST [facility] Blood VENOUS BLOOD SPECIMEN / Unknown Venipuncture / Unknown 06/07/2024 9:44 AM EST 06/07/2024 9:57 AM EST Shahnaz Scanlon MD CHEMISTRY ORDERABLES Performing Organization Address City/[facility]/ZIP Co de Phone Number [facility] [place] [address] * POC, GLUCOSE (06/07/2024 7:45 AM EST) [facility] Glucometer, POC 175 65 - 199 mg/dL 06/07/2024 7:45 AM EST [facility] Comment:Supplemental ranges: <140 mg/dL before meals <180 mg/dL all other times of the day. Blood CAPILLARY BLOOD / Unknown 06/07/2024 7:45 AM EST 06/07/2024 7:46 AM EST Melida Valdes MD POINT OF CARE TEST O RDERABLES Performing Organization Address [facility] Co de Phone Number [facility] [place] [address] * XR Chest PA & Lateral (Generic) (06/07/2024 7:03 AM EST) Pathologist [facility] WORKSTATION ID [id number] RAD Anatomical Region Laterality Modality Chest N/A [...] who have questions please contact the health child care aide that requested your imaging first. ? Narrative [...] patients who have questions please contactthe health child care aide that requested your imaging first. Shahnaz Scanlon [...] CARE TEST O RDERABLES Performing Organization Address City/State/[facility] Co de Phone Number [facility] [place] [address] * Heparin (unfractionated) Level (06/07/2024 2:41 AM [...] ORDERABLE S [facility] [place] [address] * (ABNORMAL) CBC (with Diff) (06/07/2024 2:41 AM EST) White Blood Cell 10.06(H) 4.00 - 9.50 x10(3)/mc L 06/07/2024 2:58 AM [facility] Red Blood Cell 5.02 4.58 [...] ORDERABLE S [facility] [place] [address] * Magnesium (06/07/2024 2:41 AM EST) Pathologist [facility] Magnesium 0.92 0.69 - 1.07 mMol/L 06/07/2024 3:25 AM [facility] Blood VENOUS BLOOD SPECIMEN / Unknown Venipuncture / Unknown 06/07/2024 2:41 AM EST 06/07/2024 2:51 AM EST Shahnaz Scanlon MD CHEMISTRY ORDERABLES [facility] [place] [address] * (ABNORMAL) Basic Metabolic Panel (06/07/2024 2:41 AM EST) Pathologist [facility] Glucose 140 65 - 199 mg/dL 06/07/2024 3:25 AM [facility] Comment:Glucose [...] mL/min/1. 73 m?? 06/07/2024 3:25 AM EST [facility] Scanlon MD CHEMISTRY ORDERABLES Performing Organization Address City/[facility]/ZIP Co de Phone Number [facility] [place] [address] * POC, GLUCOSE (06/07/2024 12:08 AM EST) [...] O RDERABLES [facility] [place] [address] * POC, GLUCOSE (06/06/2024 8:18 PM EST) Glucometer, POC 143 65 - 199 mg/dL 06/06/2024 8:19 PM EST [facility] Comment:Supplemental ranges: <140 mg/dL before meals <180 mg/dL all other times of the day. Blood CAPILLARY BLOOD / Unknown 06/06/2024 8:18 PM EST 06/06/2024 8:19 PM EST Melida Valdes MD POINT OF CARE TEST O NIKA Performing Organization Address City/[facility]/ZIP Co de Phone Number [facility] [place] [address] * POC, GLUCOSE (06/06/2024 3:39 PM EST) Glucometer, POC 147 65 - 199 mg/dL 06/06/2024 3:40 PM EST [facility] Comment:Supplemental ranges: <140 mg/dL before meals <180 mg/dL all other times of the day. Blood CAPILLARY BLOOD / Unknown 06/06/2024 3:39 PM EST 06/06/2024 3:40 PM EST Melida Valdes MD POINT OF CARE TEST O NIKA Performing Organization Address [facility] Co de Phone Number [facility] [place] [address] * Potassium (06/06/2024 2:37 PM EST) Pathologist [facility] Potassium 4.3 3.5 - 5.0 mMol/L 06/06/2024 3:01 PM EST [facility] Blood VENOUS BLOOD SPECIMEN / Unknown Venipuncture / Unknown 06/06/2024 2:37 PM EST 06/06/2024 2:42 PM EST Shahnaz Scanlon MD CHEMISTRY ORDERABLES Performing Organization Address City/[facility] Co de Phone Number [facility] [place] [address] * (ABNORMAL) POC, GLUCOSE (06/06/2024 1:39 PM EST) Glucometer, POC 317(H) 65 - 199 mg/dL 06/06/2024 1:40 PM EST [facility] Comment:Supplemental ranges: <140 mg/dL before meals <180 mg/dL all other times of the day. Blood CAPILLARY BLOOD / Unknown 06/06/2024 1:39 PM EST 06/06/2024 1:41 PM EST Melida Valdes MD POINT OF CARE TEST O RDERABLES Performing Organization Address City/[facility]/ZIP Co de Phone Number [facility] [place] [address] * (ABNORMAL) POC, GLUCOSE (06/06/2024 11:34 AM EST) Glucometer, POC 264(H) 65 - 199 mg/dL 06/06/2024 11:35 AM EST [facility] Comment:Supplemental ranges: <140 mg/dL before meals <180 mg/dL all other times of the day. Blood CAPILLARY BLOOD / Unknown 06/06/2024 11:34 AM EST 06/06/2024 11:35 AM EST Melida Valdes MD POINT OF CARE TEST O RDERABLES Performing Organization Address City/[facility]/ZIP Co de Phone Number [facility] [place] [address] * Potassium (06/06/2024 10:17 AM EST) Potassium 4.3 3.5 - 5.0 mMol/L 06/06/2024 10:46 AM EST [facility] Blood VENOUS BLOOD SPECIMEN / Unknown Venipuncture / Unknown 06/06/2024 10:17 AM EST 06/06/2024 10:22 AM EST Shahnaz Scanlon MD CHEMISTRY ORDERABLES [facility] [place] [address] * POC, GLUCOSE (06/06/2024 7:57 AM EST) Glucometer, POC 195 65 - 199 mg/dL 06/06/2024 8:03 AM EST [facility] Comment:Supplemental ranges: <140 mg/dL before meals <180 mg/dL all other times of the day. Blood CAPILLARY BLOOD / Unknown 06/06/2024 7:57 AM EST 06/06/2024 8:03 AM EST Melida Valdes MD POINT OF CARE TEST Abimael MAHER Performing Organization Address [facility] Co de Phone Number [facility] [place] [address] * POC, GLUCOSE (06/06/2024 6:53 AM EST) Glucometer, POC 187 65 - 199 mg/dL 06/06/2024 6:53 AM EST [facility] Comment:Supplemental ranges: <140 mg/dL before meals <180 mg/dL all other times of the day. Blood CAPILLARY BLOOD / Unknown 06/06/2024 6:53 AM EST 06/06/2024 6:54 AM EST Melida Valdes MD POINT OF CARE TEST Abimael MAHER Performing Organization Address [facility] de Phone Number [facility] [place] [address] * (ABNORMAL) Hemoglobin A1c (06/06/2024 3:33 AM [...] red blood cell turnover may not be customer relations representative of glycemic control. Reference Interval: 4.3 - 5.6% 5.7 - 6.4%: Consistent with prediabetes >=6.5%: Consistent with diagnosis of diabetes mellitus Estimated Average Glucose 157 mg/dL 06/06/2024 1:01 PM EST [facility] Blood VENOUS BLOOD SPECIMEN / Unknown Venipuncture / Unknown 06/06/2024 3:33 AM EST 06/06/2024 3:48 AM EST Alejandra Baumann APRN CHEMISTRY ORDERAB LES Performing Organization Address [facility] Co de Phone Number [facility] [place] [address] * Heparin (unfractionated) Level (06/06/2024 3:33 AM [...] MD HEMATOLOGY ORDERABLE S Performing Organization Address [facility] Co de Phone Number [facility] [place] [address] * (ABNORMAL) CBC (with Diff) (06/06/2024 3:33 AM EST) [facility] White Blood Cell 9.81(H) 4.00 - 9.50 x10(3)/mc L 06/06/2024 3:54 AM [facility] Red Blood Cell 4.91 4.58 - 5.54 x10(6)/mc L 06/06/2024 3:54 AM [facility] Hemoglobin 14.6 13.7 - 16.5 g/dL 06/06/2024 3:54 AM [facility] Hematocrit 45.4 40.5 - 48.5 [...] - 6.10 x10(3)/mc L 06/06/2024 3:54 AM EST [facility] Lymph % 27.6 % 06/06/2024 3:54 AM EST [facility] Lymph Absolute 2.71 0.90 - 3.20 x10(3)/mc L 06/06/2024 3:54 AM EST [facility] Monocyte % 11.1 % 06/06/2024 3:54 AM [facility] Monocyte Absolute 1.09(H) 0.30 - 0.90 x10(3)/mc L 06/06/2024 3:54 AM [facility] Eos % 3.0 % 06/06/2024 3:54 AM [facility] Eos Absolute 0.29 0.00 - 0.40 x10(3)/mc L 06/06/2024 3:54 AM EST [facility] [...] ORDERABLE S [facility] [place] [address] * Magnesium (06/06/2024 3:33 AM EST) Magnesium 0.92 0.69 - 1.07 mMol/L 06/06/2024 4:17 AM [facility] Blood VENOUS BLOOD SPECIMEN / Unknown Venipuncture / Unknown 06/06/2024 3:33 AM EST 06/06/2024 3:47 AM EST Shahnaz Scanlon MD CHEMISTRY ORDERABLES [facility] [place] [address] * (ABNORMAL) Basic Metabolic Panel (06/06/2024 3:33 [...] Scanlon MD CHEMISTRY ORDERABLES Performing Organization Address [facility]/ZIP Co de Phone Number [facility] [place] [address] * (ABNORMAL) POC, GLUCOSE (06/05/2024 10:31 PM [...] O RDERABLES [facility] [place] [address] * (ABNORMAL) POC, GLUCOSE (06/05/2024 4:22 PM EDT) Glucometer, POC 205(H) 65 - 199 mg/dL 06/05/2024 4:22 PM EDT [facility] Comment:Supplemental ranges: <140 mg/dL before meals <180 mg/dL all other times of the day. Blood CAPILLARY BLOOD / Unknown 06/05/2024 4:22 PM EDT 06/05/2024 4:23 PM EDT Melida Valdes MD POINT OF CARE TEST O NIKA Performing Organization Address City/[facility]/ZIP Co de Phone Number [facility] [place] [address] * (ABNORMAL) POC, GLUCOSE (06/05/2024 11:34 AM EDT) Glucometer, POC 211(H) 65 - 199 mg/dL 06/05/2024 11:34 AM EDT [facility] Comment:Supplemental ranges: <140 mg/dL before meals <180 mg/dL all other times of the day. Blood CAPILLARY BLOOD / Unknown 06/05/2024 11:34 AM EDT 06/05/2024 11:34 AM EDT eMlida Valdes MD POINT OF CARE TEST O NIKA Performing Organization Address City/[facility]/ZIP Co de Phone Number [facility] [place] [address] * Potassium (06/05/2024 9:04 AM EDT) Potassium 4.3 3.5 - 5.0 mMol/L 06/05/2024 9:50 AM EDT [facility] Blood VENOUS BLOOD SPECIMEN / Unknown Venipuncture / Unknown 06/05/2024 9:04 AM EDT 06/05/2024 9:21 AM EDT Shahnaz Scanlon MD CHEMISTRY ORDERABLES Performing Organization Address City/[facility]/ZIP Co de Phone Number [facility] [place] [address] * POC, GLUCOSE (06/05/2024 7:27 AM EDT) Glucometer, POC 166 65 - 199 mg/dL 06/05/2024 7:27 AM EDT [facility] Comment:Supplemental ranges: <140 mg/dL before meals <180 mg/dL all other times of the day. Blood CAPILLARY BLOOD / Unknown 06/05/2024 7:27 AM EDT 06/05/2024 7:27 AM EDT Melida Valdes MD POINT OF CARE TEST O RDERABLES Performing Organization Address [facility] Co de Phone Number [facility] [place] [address] * Heparin (unfractionated) Level (06/05/2024 3:44 AM [...] MD HEMATOLOGY ORDERABLE S Performing Organization Address [facility] Co de Phone Number [facility] [place] [address] * (ABNORMAL) CBC (with Diff) (06/05/2024 3:44 AM EDT) White Blood Cell 10.83(H) 4.00 - 9.50 x10(3)/mc L 06/05/2024 3:56 AM [facility] Red Blood Cell 5.07 4.58 - 5.54 x10(6)/mc L 06/05/2024 3:56 AM [facility] Hemoglobin 15.3 13.7 - 16.5 g/dL 06/05/2024 3:56 AM [facility] Hematocrit 46.8 40.5 - 48.5 % 06/05/2024 3:56 AM [facility] Mean Cell Volume 92.3 82.9 - 93.1 fL 06/05/2024 3:56 AM [facility] Mean Cell Hemoglobin 30.2 27.5 - 32.1 pg 06/05/2024 3:56 AM [facility] Mean Cell Hemoglobin Concentration 32.7 32.0 - 35.7 g/dL 06/05/2024 3:56 AM [facility] Platelet 219 145 - 357 x10(3)/mc L 06/05/2024 3:56 AM [facility] Mean Platelet Volume 9.4 7.6 - 12.9 fL 06/05/2024 3:56 AM [facility] RDW Standard Deviation 46.7(H) 36.0 - 45.0 fL 06/05/2024 3:56 AM [facility] RDW coefficient of variation 13.9(H) 11.4 - 13.8 % 06/05/2024 3:56 AM [facility] NRBC% auto 0.0 % 06/05/2024 3:56 AM [facility] NRBC Absolute <0.01 <0.01 x10(3)/mc L 06/05/2024 3:56 AM [facility] Neutrophil % 61.5 % 06/05/2024 3:56 AM [facility] Neutrophil Absolute (ANC) - Automated 6.65(H) 1.70 - 6.10 x10(3)/mc L 06/05/2024 3:56 AM EDT [facility] Lymph % 24.0 % 06/05/2024 3:56 AM EDT [facility] Lymph Absolute 2.60 0.90 - 3.20 x10(3)/mc L 06/05/2024 3:56 AM EDT [facility] Monocyte % 10.9 % 06/05/2024 3:56 AM EDT [facility] Monocyte Absolute 1.18(H) 0.30 - 0.90 x10(3)/mc L 06/05/2024 3:56 AM EDT [facility] Eos % 2.2 % 06/05/2024 3:56 AM EDT [facility] Eos Absolute 0.24 0.00 - 0.40 x10(3)/mc L 06/05/2024 3:56 AM EDT [facility] Basophil % 0.8 % 06/05/2024 3:56 AM EDT [facility] Baso Absolute 0.09 0.00 [...] ORDERABLE S [facility] [place] [address] * Magnesium (06/05/2024 3:44 AM EDT) Magnesium 0.92 0.69 - 1.07 mMol/L 06/05/2024 4:20 AM [facility] Blood VENOUS BLOOD SPECIMEN / Unknown Venipuncture / Unknown 06/05/2024 3:44 AM EDT 06/05/2024 3:50 AM EDT Shahnaz Scanlon MD CHEMISTRY ORDERABLES [facility] [place] [address] * (ABNORMAL) Basic Metabolic Panel (06/05/2024 3:44 AM EDT) Glucose 155 65 - 199 mg/dL 06/05/2024 4:20 AM [facility] Comment:Glucose Concentratio n >=200 mg/dL plus symptoms is consistent with Diabetes Mellitus. Blood Urea Nitrogen 25(H) 10 - 20 mg/dL 06/05/2024 4:20 AM [facility] Creatinine 1.16 0.80 - 1.50 mg/dL 06/05/2024 4:20 AM [facility] Sodium 136 135 - 145 mMol/L 06/05/2024 4:20 AM [facility] Potassium 3.9 3.5 - 5.0 mMol/L 06/05/2024 4:20 AM [facility] Chloride 95(L) 98 - 107 mMol/L 06/05/2024 4:20 AM [facility] Carbon Dioxide 29 22 - 31 mMol/L 06/05/2024 4:20 AM [facility] Anion Gap 12 5 - 15 mMol/L 06/05/2024 4:20 AM [facility] Calcium 9.2 8.5 - 10.5 mg/dL 06/05/2024 4:20 AM [facility] Est Glomerular Filtration Rate - Male 69 mL/min/1. 73 m?? 06/05/2024 4:20 AM [facility] Comment: This patient's estimated GFR [...] Scanlon MD CHEMISTRY ORDERABLES Performing Organization Address City/[facility]/ZIP Co de Phone Number [facility] [place] [address] * Potassium (06/04/2024 10:34 PM EDT) Potassium 3.7 3.5 - 5.0 mMol/L 06/04/2024 11:03 PM EDT [facility] Blood VENOUS BLOOD SPECIMEN / Unknown Venipuncture / Unknown 06/04/2024 10:34 PM EDT 06/04/2024 10:39 PM EDT Shahnaz Scanlon MD CHEMISTRY ORDERABLES Performing Organization Address City/[facility]/ZIP Co de Phone Number [facility] [place] [address] * POC, GLUCOSE (06/04/2024 7:43 PM EDT) Glucometer, POC 175 65 - 199 mg/dL 06/04/2024 7:43 PM EDT [facility] Comment:Supplemental ranges: <140 mg/dL before meals <180 mg/dL all other times of the day. Blood CAPILLARY BLOOD / Unknown 06/04/2024 7:43 PM EDT 06/04/2024 7:43 PM EDT Melida Valdes MD POINT OF CARE TEST O RDERABLES Performing Organization Address City/[facility]/ZIP Co de Phone Number [facility] [place] [address] * Potassium (06/04/2024 4:35 PM EDT) Potassium 4.0 3.5 - 5.0 mMol/L 06/04/2024 5:32 PM EDT [facility] Blood VENOUS BLOOD SPECIMEN / Unknown Venipuncture / Unknown 06/04/2024 4:35 PM EDT 06/04/2024 4:40 PM EDT Shahnaz Scanlon MD CHEMISTRY ORDERABLES Performing Organization Address City/[facility] Co de Phone Number [facility] [place] [address] * POC, GLUCOSE (06/04/2024 3:26 PM EDT) Glucometer, POC 154 65 - 199 mg/dL 06/04/2024 3:26 PM EDT [facility] Comment:Supplemental ranges: <140 mg/dL before meals <180 mg/dL all other times of the day. Blood CAPILLARY BLOOD / Unknown 06/04/2024 3:26 PM EDT 06/04/2024 3:27 PM EDT Melida Valdes MD POINT OF CARE TEST O NIKA Performing Organization Address City/[facility]/ZIP Co de Phone Number [facility] [place] [address] * POC, GLUCOSE (06/04/2024 11:09 AM EDT) Glucometer, POC 188 65 - 199 mg/dL 06/04/2024 11:09 AM EDT [facility] Comment:Supplemental ranges: <140 mg/dL before meals <180 mg/dL all other times of the day. Blood CAPILLARY BLOOD / Unknown 06/04/2024 11:09 AM EDT 06/04/2024 11:09 AM EDT Delroy Fofana MD POINT OF CARE TEST ORDERABLES Performing Organization Address [facility]/ZIP Co de Phone Number [facility] [place] [address] * Heparin (unfractionated) Level (06/04/2024 10:41 AM [...] ORDERABLE S [facility] [place] [address] * Potassium (06/04/2024 10:41 AM EDT) Potassium 4.0 3.5 - 5.0 mMol/L 06/04/2024 11:11 AM EDT [facility] Blood VENOUS BLOOD SPECIMEN / Unknown Venipuncture / Unknown 06/04/2024 10:41 AM EDT 06/04/2024 10:46 AM EDT Shahnaz Scanlon MD CHEMISTRY ORDERABLES Performing Organization Address City/[facility]/ZIP Co de Phone Number [facility] [place] [address] * POC, GLUCOSE (06/04/2024 7:11 AM EDT) Glucometer, POC 182 65 - 199 mg/dL 06/04/2024 7:12 AM EDT [facility] Comment:Supplemental ranges: <140 mg/dL before meals <180 mg/dL all other times of the day. Blood CAPILLARY BLOOD / Unknown 06/04/2024 7:11 AM EDT 06/04/2024 7:12 AM EDT Delroy Fofana MD POINT OF CARE TEST ORDERABLES Performing Organization Address [facility] Co de Phone Number [facility] [place] [address] * Heparin (unfractionated) Level (06/04/2024 4:38 AM [...] ORDERABLE S [facility] [place] [address] * (ABNORMAL) CBC (with Diff) (06/04/2024 4:38 [...] - 48.5 % 06/04/2024 5:12 AM EDT [facility] Mean Cell Volume 92.7 82.9 - 93.1 fL 06/04/2024 5:12 AM EDT [facility] Mean Cell Hemoglobin 29.9 27.5 - 32.1 pg 06/04/2024 5:12 AM EDT [facility] Mean Cell Hemoglobin Concentration 32.3 32.0 - 35.7 g/dL 06/04/2024 5:12 AM EDT [facility] Platelet 222 145 - 357 x10(3)/mc L 06/04/2024 5:12 AM EDT [facility] Mean Platelet Volume 9.5 7.6 - 12.9 fL 06/04/2024 5:12 AM EDT [facility] RDW Standard Deviation 47.6(H) 36.0 - 45.0 fL 06/04/2024 5:12 AM EDT [facility] RDW coefficient of variation 14.1(H) 11.4 - 13.8 % 06/04/2024 5:12 AM EDT [facility] NRBC% auto 0.0 % 06/04/2024 5:[facility] NRBC Absolute <0.01 <0.01 x10(3)/mc L 06/04/2024 5:12 AM [facility] Neutrophil % 60.3 % 06/04/2024 5:12 AM [facility] Neutrophil Absolute (ANC) - Automated 6.91(H) 1.70 - 6.10 x10(3)/mc L 06/04/2024 5:12 AM [facility] Lymph % 25.1 % 06/04/2024 5:12 AM [facility] Lymph Absolute 2.87 0.90 - 3.20 x10(3)/mc L 06/04/2024 5:12 AM [facility] Monocyte % 10.6 % 06/04/2024 5:12 AM [facility] Monocyte Absolute 1.21(H) 0.30 - 0.90 x10(3)/mc L 06/04/2024 5:12 AM [facility] Eos % 2.8 % 06/04/2024 5:12 AM [facility] Eos Absolute 0.32 0.00 - 0.40 x10(3)/mc L 06/04/2024 5:12 AM [facility] Basophil % 0.7 % 06/04/2024 5:12 AM [facility] Baso Absolute 0.08 0.00 - 0.10 x10(3)/mc L 06/04/2024 5:12 AM [facility] Immature Gran % 0.5 % 5:12 AM [facility] Immature Gran Absolute 0.06(H) 0.00 - 0.04 x10(3)/mc L 06/04/2024 5:12 AM EDT [facility] Blood VENOUS BLOOD SPECIMEN / Unknown Venipuncture / Unknown 06/04/2024 4:38 AM EDT 06/04/2024 5:07 AM EDT Shahnaz Scanlon MD HEMATOLOGY ORDERABLE S Performing Organization Address City/[facility]/ZIP Co de Phone Number [facility] [place] [address] * Magnesium (06/04/2024 4:38 AM EDT) Magnesium 0.84 0.69 - 1.07 mMol/L 06/04/2024 5:35 AM EDT [facility] Blood VENOUS BLOOD SPECIMEN / Unknown Venipuncture / Unknown 06/04/2024 4:38 AM EDT 06/04/2024 5:07 AM EDT Shahnaz Scanlon MD CHEMISTRY ORDERABLES Performing Organization Address City/[facility]/ZIP Co de Phone Number [facility] [place] [address] * (ABNORMAL) Basic Metabolic Panel (06/04/2024 4:38 AM EDT) Glucose 118 65 - 199 mg/dL 06/04/2024 5:35 AM EDT [facility] Comment:Glucose Concentratio n >=200 mg/dL plus symptoms is consistent with Diabetes Mellitus. Blood Urea Nitrogen 22(H) 10 - 20 mg/dL 06/04/2024 5:35 AM EDT [facility] Creatinine 1.22 0.80 - 1.50 mg/dL 06/04/2024 5:35 AM EDT [facility] Sodium 137 135 - 145 mMol/L 06/04/2024 5:35 AM EDT [facility] Potassium 3.6 3.5 - 5.0 mMol/L 06/04/2024 5:35 AM EDT [facility] Chloride 97(L) 98 - 107 mMol/L 06/04/2024 5:35 AM EDT [facility] Carbon Dioxide 29 22 - 31 mMol/L 06/04/2024 5:35 AM EDT [facility] Anion Gap 11 5 - 15 mMol/L 06/04/2024 5:35 AM EDT [facility] Calcium 9.0 8.5 - 10.5 mg/dL 06/04/2024 5:35 AM EDT [facility] Est Glomerular Filtration Rate - Male 65 mL/min/1. 73 m?? 06/04/2024 5:35 AM EDT [facility] CHEMISTRY ORDERABLES [facility] [place] [address] * Heparin (unfractionated) Level (06/03/2024 8:58 PM [...] MD HEMATOLOGY ORDERABLE S Performing Organization Address City/[facility]/ZIP Co de Phone Number [facility] [place] [address] * POC, GLUCOSE (06/03/2024 8:05 PM EDT) Glucometer, POC 136 65 - 199 mg/dL 06/03/2024 8:05 PM EDT [facility] Comment:Supplemental ranges: <140 mg/dL before meals <180 mg/dL all other times of the day. Blood CAPILLARY BLOOD / Unknown 06/03/2024 8:05 PM EDT 06/03/2024 8:05 PM EDT Delroy Fofana MD POINT OF CARE TEST ORDERABLES Performing Organization Address City/[facility]/ZIP Co de Phone Number [facility] [place] [address] * POC, GLUCOSE (06/03/2024 5:48 PM EDT) Glucometer, POC 191 65 - 199 mg/dL 06/03/2024 5:48 PM EDT [facility] Comment:Supplemental ranges: <140 mg/dL before meals <180 mg/dL all other times of the day. Blood CAPILLARY BLOOD / Unknown 06/03/2024 5:48 PM EDT 06/03/2024 5:49 PM EDT Delroy Fofana MD POINT OF CARE TEST ORDERABLES [facility] [place] [address] * CT Chest wo Contrast (Generic) (06/03/2024 4:33 PM EDT) WORKSTATION ID [id number] RAD Anatomical Region Laterality Modality Chest Computed Tomogra phy Impressions 06/03/2024 4:47 PM EDT Cardiomegaly. Biventricular ICD leads in place. Thank you for letting us participate in the care of this patient. ??If you are a health care provider and have any questions regarding this report, please contact the number below. ??For patients who have questions please contact the health child care aide that requested your imaging first. ? Narrative [...] patients who have questions please contactthe health child care aide that requested your imaging first. Bobby Loja MD IMG CT ORDERABLES * Carotid Duplex, Bilateral (06/03/2024 2:19 PM EDT) VB Text Report Department: Vascular Surgery Lab Patient: [id number] (GEORGE MEHTA) CPT: 32465 Referring Physician: BOBBY LOJA ?? Phone: Indications: [...] ORDERABLE S [facility] [place] [address] * POC, GLUCOSE (06/03/2024 11:14 AM EDT) Glucometer, POC 166 65 - 199 mg/dL 06/03/2024 11:14 AM EDT [facility] Comment:Supplemental ranges: <140 mg/dL before meals <180 mg/dL all other times of the day. Blood CAPILLARY BLOOD / Unknown 06/03/2024 11:14 AM EDT 06/03/2024 11:14 AM EDT Delroy Fofana MD POINT OF CARE TEST ORDERABLES Performing Organization Address City/[facility]/ZIP Co de Phone Number [facility] [place] [address] * (ABNORMAL) Troponin-T, High Sensitivity 3 Hour [...] troponin value can be found in the [facility] Test Catalog Troponin - https://one-.testcatalog.org/catalogs/565/files/69722 Reference: Fourth Bedrock Definition of Myocardial Infarction. Journal of the [place] [employer] 2018;72:7264-9782 Troponin-T, HS 3 hr delta 06/03/2024 10:50 AM EDT [facility] Comment:Delta troponin value not calculated, sample collected outside of delta calculation time limit. Blood VENOUS BLOOD SPECIMEN / Unknown IP Care Team Draw / Unknown 06/03/2024 10:06 AM EDT 06/03/2024 10:15 AM EDT Delroy Fofana MD CHEMISTRY ORDERABLE S [facility] [place] [address] * ECHO COMPLETE W CONTRAST (06/03/2024 8:46 AM EDT) Anatomical Region Laterality Modality Cardiac Other 06/03/2024 6:52 AM EDT Narrative 06/03/2024 10:32 AM EDT [address] [place] [address] ? Echocardiogram Report Name: GEORGE MEHTA ?Study Date: 06/03/2024 06:52 AM : 1955 ? Height: 168 cm ? Account: [id number] Age: 69 yrs ? Weight: 102 kg Gender: Male ?BSA: 2.1 m2 Ordering Physician: SHAHNAZ SCANLON Referring Physician: REBEL MUÑIZ Performed By: Sara Kebede RDCS Reason For Study: STEMI Exam Location: [facility]. Interpretation Summary -Left ventricular systolic [...] fellow performed study of today's date). Procedure Complete-[id number]. Image enhancement Optison was used for left [...] Note Jonnie Jordan MD - 06/03/2024 [address] [place] [address] Echocardiogram Report Name: GEORGE MEHTA Study Date: 406:52 AM : 1955 Height: 168 cm Account: [id number] Age: 69 yrs Weight: 102 kg Gender: Male BSA: 2.1 m2 Ordering Physician: SHAHNAZ SCANLON Referring Physician: REBEL MUÑIZ Performed By: Sara Kebede RDCS Reason For Study: STEMI Exam Location: [facility]. Interpretation Summary -Left ventricular systolic [...] a fellow performed study of's date). Procedure Complete-81265. Image enhancement Optison was used for left [...] troponin value can be found in the [facility] Test Catalog Troponin - https://one-.testcatalog.org/catalogs/565/files/00964 Reference: Fourth Bedrock Definition of Myocardial Infarction. Journal of the [place] [employer] 2018;72:0712-0163 Troponin-T, HS 1 hr delta 5 ng/L [...] MD CHEMISTRY ORDERABLE S Performing Organization Address City/[facility]/ZIP Co de Phone Number [facility] [place] [address] * POC, GLUCOSE (06/03/2024 7:54 AM EDT) Glucometer, POC 195 65 - 199 mg/dL 06/03/2024 7:55 AM EDT [facility] Comment:Supplemental ranges: <140 mg/dL before meals <180 mg/dL all other times of the day. Blood CAPILLARY BLOOD / Unknown 06/03/2024 7:54 AM EDT 06/03/2024 7:55 AM EDT Nuha Rojo MD POINT OF CARE TEST ORDERABLES Performing Organization Address City/[facility]/ZIP Co de Phone Number [facility] [place] [address] * (ABNORMAL) Troponin-T, High Sensitivity (06/03/2024 7:39 [...] troponin value can be found in the [facility] Test Catalog Troponin - https://[employer]/catalogs/565/files/08176 Reference: Fourth Bedrock Definition of Myocardial Infarction. Journal of the [place] [employer] 2018;72:9316-2372 Blood VENOUS BLOOD SPECIMEN / Unknown IP Care Team Draw / Unknown 06/03/2024 7:39 AM EDT 06/03/2024 7:48 AM EDT Delroy Fofana MD CHEMISTRY ORDERABLE S [facility] [place] [address] * (ABNORMAL) Troponin-T, High Sensitivity 3 Hour (06/03/2024 5:11 AM EDT) [facility] Troponin-T, High Sensitivity 254(H) <=22 ng/L 06/03/2024 [...] troponin value can be found in the [facility] Test Catalog Troponin - https://[employer]/catalogs/565/files/41184 Reference: Fourth Bedrock Definition of Myocardial Infarction. Journal of the [place] [employer] 2018;72:1256-4916 Troponin-T, HS 3 hr delta 46 ng/L [...] CHEMISTRY ORDERABLES [facility] [place] [address] * (ABNORMAL) Troponin-T, High Sensitivity 1 Hour (06/03/2024 3:07 AM EDT) Pathologist [facility] Troponin-T, High Sensitivity 218(H) <=22 ng/L 06/03/2024 [...] troponin value can be found in the [facility] Test Catalog Troponin - https://[facility].org/catalogs/565/files/56287 Reference: Fourth Bedrock Definition of Myocardial Infarction. Journal of the [place] [employer] 2018;72:8059-8083 Troponin-T, HS 1 hr delta 10 ng/L [...] CHEMISTRY ORDERABLES [facility] [place] [address] * XR Chest One View (06/03/2024 2:41 AM EDT) CAD [employer] WORKSTATION ID [id number] RAD Anatomical Region Laterality Modality Chest N/A Digital Radiogra phy Impressions 06/03/2024 3:06 AM EDT No radiographically evident acute cardiopulmonary process. Thank you for letting us participate in the care of this patient. ??If you are a health care provider and have any questions regarding this report, please contact the number below. ??For patients who have questions please contact the health child care aide that requested your imaging first. ? Narrative [...] patients who have questions please contactthe health child care aide that requested your imaging first. Shahnaz Scanlon [...] ORDERABLE S [facility] [place] [address] * (ABNORMAL) Troponin-T, High Sensitivity (06/03/2024 2:13 [...] troponin value can be found in the [facility] Test Catalog Troponin - https://one-.testcatalog.org/catalogs/565/files/08875 Reference: Fourth Bedrock Definition of Myocardial Infarction. Journal of the [place] [employer] 2018;72:1390-5203 Blood VENOUS BLOOD SPECIMEN / Unknown IP Care Team Draw / Unknown 06/03/2024 2:13 AM EDT 06/03/2024 2:32 AM EDT Shahnaz Scanlon MD CHEMISTRY ORDERABLES Performing Organization Address City/[facility]/ZIP Co de Phone Number [facility] [place] [address] * Magnesium (06/03/2024 2:13 AM EDT) Magnesium 0.86 0.69 - 1.07 mMol/L 06/03/2024 3:02 AM EDT [facility] Blood VENOUS BLOOD SPECIMEN / Unknown IP Care Team Draw / Unknown 06/03/2024 2:13 AM EDT 06/03/2024 2:32 AM EDT Shahnaz Scanlon MD CHEMISTRY ORDERABLES Performing Organization Address City/[facility]/ZIP Co de Phone Number [facility] [place] [address] * Basic Metabolic Panel (06/03/2024 2:13 AM EDT) Glucose 126 65 - 199 mg/dL 06/03/2024 3:02 AM EDT [facility] Comment:Glucose Concentratio n >=200 mg/dL plus symptoms is consistent with Diabetes Mellitus. Blood Urea Nitrogen 20 10 - 20 mg/dL 06/03/2024 3:02 AM EDT [facility] Creatinine 1.13 0.80 - 1.50 mg/dL 06/03/2024 3:02 AM EDT [facility] Sodium 139 135 - 145 mMol/L 06/03/2024 3:02 AM EDT [facility] Potassium 4.2 3.5 - 5.0 mMol/L 06/03/2024 3:02 AM EDT [facility] Chloride 101 98 - 107 mMol/L 06/03/2024 3:02 AM EDT [facility] Carbon Dioxide 26 22 - 31 mMol/L 06/03/2024 3:02 AM EDT [facility] Anion Gap 12 5 - 15 mMol/L 06/03/2024 3:02 AM EDT [facility] Calcium 9.8 8.5 - 10.5 mg/dL 06/03/2024 3:02 AM EDT [facility] Est Glomerular Filtration Rate - Male 71 mL/min/1. 73 m?? 06/03/2024 3:02 AM EDT [facility] CHEMISTRY ORDERABLES [facility] [place] [address] * (ABNORMAL) CBC (with Diff) (06/03/2024 2:13 AM EDT) White Blood Cell 11.16(H) 4.00 - 9.50 x10(3)/mc L 06/03/2024 2:37 AM EDT [facility] Red Blood Cell 5.09 4.58 - 5.54 x10(6)/mc L 06/03/2024 2:37 AM EDT [facility] Hemoglobin 15.0 13.7 - 16.5 g/dL 06/03/2024 2:37 AM [facility] Hematocrit 47.4 40.5 - 48.5 % 06/03/2024 2:37 AM [facility] Mean Cell Volume 93.1 82.9 - 93.1 fL 06/03/2024 2:37 AM [facility] Mean Cell Hemoglobin 29.5 27.5 - 32.1 pg 06/03/2024 2:37 AM [facility] Mean Cell Hemoglobin Concentration 31.6(L) 32.0 - 35.7 g/dL 06/03/2024 2:37 AM [facility] Platelet 217 145 - 357 x10(3)/mc L 06/03/2024 2:37 AM [facility] Mean Platelet Volume 9.5 7.6 - 12.9 fL 06/03/2024 2:37 AM [facility] RDW Standard Deviation 49.0(H) 36.0 - 45.0 fL 06/03/2024 2:37 AM [facility] RDW coefficient of variation 14.1(H) 11.4 - 13.8 % 06/03/2024 2:37 AM [facility] NRBC% auto 0.0 % 06/03/2024 2:37 AM [facility] NRBC Absolute <0.01 <0.01 x10(3)/mc L 06/03/2024 2:37 AM [facility] Neutrophil % 58.4 % 06/03/2024 2:37 AM [facility] Neutrophil Absolute (ANC) - Automated 6.51(H) 1.70 - 6.10 x10(3)/mc L 06/03/2024 2:37 AM [facility] Lymph % 29.9 % 06/03/2024 2:37 AM [facility] Lymph Absolute 3.34(H) 0.90 - 3.20 x10(3)/mc L 06/03/2024 2:37 AM EDT [facility] Monocyte % 8.1 % 06/03/2024 2:37 AM EDT [facility] Monocyte Absolute 0.90 0.30 - 0.90 x10(3)/mc L 06/03/2024 2:37 AM EDT [facility] Eos % 2.4 % 06/03/2024 2:37 AM EDT [facility] Eos Absolute 0.27 0.00 - 0.40 x10(3)/mc L 06/03/2024 2:37 AM EDT [facility] Basophil % 0.8 % 06/03/2024 2:37 AM EDT [facility] Baso Absolute 0.09 0.00 - 0.10 x10(3)/mc L 06/03/2024 2:37 AM EDT [facility] Immature Gran % 0.4 % 2:37 AM EDT [facility] Immature Gran Absolute 0.05(H) 0.00 - 0.04 x10(3)/mc L 06/03/2024 2:37 AM EDT [facility] Blood VENOUS BLOOD SPECIMEN / Unknown IP Care Team Draw / Unknown 06/03/2024 2:13 AM EDT 06/03/2024 2:31 AM EDT Shahnaz Scanlon MD HEMATOLOGY ORDERABLE S [facility] [place] [address] * Lipid Panel (Reflex Direct LDL) (06/03/2024 2:13 AM EDT) Cholesterol, Total 76 mg/dL 06/03/2024 3:02 AM EDT [facility] Comment: Desirable: < 200 mg/dL Borderline High: 200 - 239 mg/dL High: > or = 240 mg/dL Triglyceride 75 mg/dL 06/03/2024 3:02 AM EDT [facility] Comment: Normal: <150 mg/dL Borderline High: 150-199 mg/dL High: 200-499 mg/dL Very High: > or =500 mg/dL HDL Cholesterol 39 mg/dL 3:02 AM T [facility] Comment:Males: High Risk: <4 0 mg/dL LDL Cholesterol 21 mg/dL 3:02 AM T [facility] Comment: Desirable: <100 mg/dL Above Desirable: 100-129 mg/dL Borderline High: 130-159 mg/dL High: 160-189 mg/dL Very High: > or =190 mg/dL Note: LDL calculation updated to the NIH LDL formula as of 03/07/2024 Non-HDL Cholesterol 37 mg/dL 06/03/2024 3:02 AM T [facility] Comment: Desirable: <130 mg/dL Above Desirable: 130-159 mg/dL Borderline High: 160-189 mg/dL High: 190-219 mg/dL Very High: > or = 220 mg/dL Blood VENOUS BLOOD SPECIMEN / Unknown IP Care Team Draw / Unknown 06/03/2024 2:13 AM EDT 06/03/2024 2:32 AM EDT [facility] - 06/03/2024 3:02 AM EDT It [...] lower. ?? ACC/AHA Guidelines (most recently Bruce hermosillo al. JACC 05/07/22): * For individuals with atherosclerotic cardiovascular [...] artery disease) Shahnaz Scanlon MD CHEMISTRY ORDERABLES [facility] [place] [address] * (ABNORMAL) APTT (06/03/2024 2:13 AM EDT) [...] ORDERABLE S [facility] [place] [address] * Prothrombin Time (06/03/2024 2:13 AM EDT) [...] MD HEMATOLOGY ORDERABLE S Performing Organization Address City/[facility]/ZIP Co de Phone Number [facility] [place] [address] * Hepatic Function Panel (06/03/2024 2:13 AM [...] Scanlon MD CHEMISTRY ORDERABLES Performing Organization Address City/[facility]/ZIP Co de Phone Number [facility] [place] [address] * (ABNORMAL) pro-Brain Natriuretic Peptide (06/03/2024 2:13 AM EDT) NT-proBNP 1,628(H) <=124 pg/mL 06/03/2024 4:15 AM EDT [facility] Blood VENOUS BLOOD SPECIMEN / Unknown IP Care Team Draw / Unknown 06/03/2024 2:13 AM EDT 06/03/2024 2:32 AM EDT Shahnaz Scanlon MD CHEMISTRY ORDERABLES [facility] [place] [address] * Phosphorus (06/03/2024 2:13 AM EDT) Phosphorus 4.4 2.5 - 4.5 mg/dL 06/03/2024 3:02 AM EDT [facility] Blood VENOUS BLOOD SPECIMEN / Unknown IP Care Team Draw / Unknown 06/03/2024 2:13 AM EDT 06/03/2024 2:32 AM EDT Shahnaz Scanlon MD CHEMISTRY ORDERABLES Performing Organization Address [facility] Co de Phone Number [facility] [place] [address] * EKG 12 Lead (06/03/2024 1:45 AM EDT) Ventricular rate 63 BPM MUSE SYSTEM Atrial Rate 63 BPM MUSE SYSTEM P-R Interval 168 ms MUSE SYSTEM QRS Duration 96 ms MUSE SYSTEM Q-T Interval 400 ms MUSE SYSTEM QTC Calculated (Bezet) 409 ms MUSE SYSTEM Calculated P [place] 65 degrees MUSE SYSTEM Calculated R [place] 70 degrees MUSE SYSTEM Calculated T [place] -86 degrees MUSE SYSTEM INTERPRETATION Atrial-sensed ventricular-paced rhythm Abnormal ECG No previous ECGs available I personally reviewed the tracing and edited the fellows interpretation Confirmed by fellow Sunni Agudelo ([id number]) on 06/04/2024 3:55:40 PM Confirmed by MD Tamia, Stuart Perry ([id number]) on 06/05/2024 11:46:48 AM MUSE SYSTEM 06/03/2024 1:45 AM EDT 06/05/2024 11:46 AM EDT Shahnaz Scanlon MD ECG ORDERABLES Performing Organization Address [facility] Co de Phone Number MUSE SYSTEM * CARDIAC CATHETERIZATION (06/03/2024 12:42 AM EDT) Anatomical Region Laterality Modality Other Narrative 06/04/2024 2:22 PM EDT ?[facility] ? Cardiac Catheterization/Intervention Report ? Patient Name: Tyson, George L. ? Procedure Date: 06/02/2024 ? A #: [id number] ? Primary Physician: Nuha Shen I ? Case #: [id number] ? File Name: [id number] ? Catheterization Order Number: [id number] ? [facility] ? Final Report [place], [place] ? Patient Name: ? George L. Tyson ? ID#: ?[id number] ? : ?1955 ? Procedure Date: ? June 02, 2024 ? Case #: ? [id number] ? Room: ? 5 ? Case Physician: [...] was designated as ASA Class IV. The [facility] clinical frailty ?scale is 5: Mildly Frail. ? Diagnostic Tests: ?Electrocardiography: ? EKG was assessed by ECG. EKG was Abnormal. EKG showed ST Deviation ? >= 0.5 mm. ?Medications Prior to Procedure: ? Sacubitril and Valsartan, Aspirin, Beta Erik, Statin and ? Thrombolytic (any). ? Indications for Diagnostic Cath: ?The priority of the diagnostic procedure was Emergent. The indication for ?the labview programmer visit is ACS less than or equal [...] ?3.5 guiding catheter and a 3.5 Fr [place] 20 Mhz using Manual ?pullback. ??Imaging was [...] 3.5 guiding catheter and a 3.5 Fr [place] 20 Mhz using ?Manual pullback. ??Imaging was [...] Hospital Cardiac Catheterization/Intervention Report Patient Name: George MehtaViry Procedure Date: 06/02/2024 A #: [id number] Primary Physician: Nuha Shen I Case #: [id number] File Name: [id number] Catheterization Order Number: [id number] [facility] FinalReport [place], [place] Patient Name: George Mehta ID#:[id number] :1955 Procedure Date: June 02, 2024 Case [...] was designated as ASA Class IV. The [facility] clinicalfrailty scale is 5: Mildly Frail. Diagnostic Tests: Electrocardiography: EKG was assessed by ECG. EKG was Abnormal. EKG showed STDeviation >= 0.5 mm. Medications Prior to Procedure: Sacubitril and Valsartan, Aspirin, Beta Erik, Statin and Thrombolytic (any). Indications for Diagnostic Cath: The priority of the diagnostic procedure was Emergent. Theindication for the labview programmer visit is ACS less than or equal [...] units of heparin were administered. A total [id number] of Omnipaque were opened, 84cc of Omnipaque were administered den87ml of Omnipaque were wasted. Radiation: Fluoro time [...] 3.5 guiding catheter and a 3.5 Fr [place] 20 Mhz usingManual pullback. Imaging was successful. [...] 3.5 guiding catheter and a 3.5 Fr [place] 20 Mhzusing Manual pullback. Imaging was successful. Indication: IVUS performed for pre intervention planning. Findings Pre-Intervention: scattered plaque, calcification and [id number] degrees calcification. Findings Post-Intervention: Stent not imaged [...] * POC, GLUCOSE (06/02/2024 11:31 PM EDT) [employer] Signature Glucometer, POC 156 65 - 199 mg/dL 06/02/2024 11:31 PM EDT [facility] Comment:Supplemental ranges: <140 mg/dL before meals <180 mg/dL all other times of the day. Blood CAPILLARY BLOOD / Unknown 06/02/2024 11:31 PM EDT 06/02/2024 11:31 PM EDT Nuha Rojo MD POINT OF CARE TEST ORDERABLES Performing Organization Address City/State/[facility] Co de Phone Number [facility] [place] [address] documented in this encounter Visit Diagnoses Diagnosis STEMI (ST elevation myocardial infarction)- Primary Acute myocardial infarction, unspecified site, episode of care unspecified ST elevation myocardial infarction (STEMI), unspecified artery Coronary artery disease involving [place] coronary artery of [place] heart without angina pectoris 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 Give NC if unable to take PO, Routine Given [...] Oral, 2 TIMES DAILY, First dose on Fri06/03/24 at 0900, Until Discontinued, Routine Given 06/13/2024 8:59 PM EST 6.25 mg Given 06/13/2024 8:11 AM EST 6.25 mg Given 06/12/2024 9:03 PM EST 6.25 mg carvediloL (Coreg) tablet 6.25 mg 6.25 mg, Oral, 2 TIMES DAILY WITH MEALS, First dose (after last modification) on Fri06/17/24 at 0900, Until Discontinued, Routine Given 06/17/2024 4:01 PM EST 6.25 mg Given 06/17/2024 8:44 AM EST 6.25 mg chlorhexidine (Peridex) 0.12 % solution Q-Care Kit 15 mL, Oral, 2 TIMES DAILY, First dose on Fri06/14/24 at 2100, Until Discontinued, [place] teeth and / or gums. Scan the CHG vial in the [employer] Q-Care Oral Care Kit from floor stock. Ventilator-associated pneumonia prophylaxis For use in ICU/Critical care locations ONLY. Obtain kit from Floor Stock location. Scan CHG vial in the [employer] Q-Care Oral Care Kit, Routine Given 06/14/2024 [...] restart at 50% of previous rate. Call data warehouse specialist if goal not achieved at maximum rate. [...] Intravenous, ONCE PRN, 1 dose, Starting on 06/07/24 at 1154, Until 06/07/24 at 1230, Per Protocol, Radiology Contrast, Routine Given 06/07/2024 12:30 PM EST 38 mLs glucagon (Glucagen) (1 mg/mL) injection solution 1 mg 1 mg, Intramuscular, EVERY 15 MIN PRN, Starting on 06/15/24 at 1532, Until Fri06/21/24 at 1534, Low [...] in sodium chloride 0.9% infusion (for [facility], Professional Fee Coder, OR use only) 3-5 mL/hr, Intravenous, CONTINUOUS, Starting on 06/13/24 at 1015, Until Tu06/15/24 at 0749, Flush #1 at 300 mmHg [...] PRN, Starting on Fri06/15/24 at 2221, Until Fri06/17/24 at 0829, Pain, for breakthrough pain not [...] 13 Units, Subcutaneous, ONCE, 1 dose, On Fri06/06/24 at 1645, STAT Given 06/06/2024 4:56 PM EST 13 Units insulin glargine-ygfn (Semglee) (100 unit/mL) subcutaneous injection vial 20 Units 20 Units (rounded from 20.4 Units = 0.2 Units/kg/day ? 102 kg), Subcutaneous, DAILY, First dose on Fri06/03/24 at 0900, Until Discontinued, Routine Given 06/06/2024 [...] 45 Units, Subcutaneous, DAILY, First dose on Fri06/15/24 at 1245, Until Discontinued, STAT Given 06/15/2024 [...] DAILY, First dose (after last modification) on Fri06/17/24 at 0900, Until Discontinued, Routine Given 06/18/2024 [...] MEALS, First dose (after last modification) on [facility] 06/19/24 at 0800, Until Discontinued, MEAL ASSOCIATED [...] MEALS, First dose (after last modification) on [facility] 06/17/24 at 0800, Until Discontinued, MEAL [...] MEALS, First dose (after last modification) on [facility] 06/17/24 at 1700, Until Discontinued, MEAL [...] TIMES DAILY WITH MEALS, First dose on [place] 06/06/24 at 1200, Until Discontinued, MEAL ASSOCIATED Give 1 unit for every 10 grams carbohydrate. Hold if not eating or if BG less than 70 mg/dL. , Routine Given 06/06/2024 12:25 PM EST 4 Units insulin lispro (HumaLOG;Admelog) (100 unit/mL) subcutaneous injection vial 1-10 Units 1-10 Units, Subcutaneous, EVERY 4 HOURS SCHEDULED, First dose (after last modification) on [facility] 06/19/24 at 0800, Until Discontinued, CORRECTION BOLUS [...] EVERY 4 HOURS SCHEDULED, First dose on Fri06/06/24 at 2000, Until Discontinued, CORRECTION BOLUS [1-6 [...] 2100, Last dose on Fri06/23/24 at 0900, Process Manager recommended duration is 3 days., Routine Given [...] Intravenous, ONCE PRN, 1 dose, Starting on Miguelina 06/03/24 at 0847, Until Miguelina 06/03/24 at 0847, Other, Routine Given 06/03/2024 8:47 [...] 8:02 PM EST 2 tablets sodium chloride (Schaller) 0.65 % nasal spray 1 spray 1 [...] 2.0 L/min/M2. Maximum volume 2 L. Call data warehouse specialist for additional fluid orders: pager #[phone]. Rate/Dose Verify 06/15/2024 10:00 AM EST 1 mL/hr 1 mL/hr Rate/Dose Verify 06/15/2024 8:00 AM EST 1 mL/hr 1 mL/hr Rate/Dose Verify 06/15/2024 6:00 AM EST 1 mL/hr 1 mL/hr sodium chloride 0.9% infusion 10-30 mL/hr, Intravenous, DAILY PRN, Starting on Fri06/14/24 at 1436, Until Fri06/15/24 at 1406, Side port TKO rate, per [facility] nursing protocol. Rate/Dose Verify 06/15/2024 10:00 AM EST 30 mL/hr 30 mL/hr Rate/Dose Verify 06/15/2024 8:00 AM EST 30 mL/hr 30 mL/h r Rate/Dose Verify 06/15/2024 6:00 AM EST 30 mL/hr 30 mL/h r sodium chloride 0.9% infusion 10-30 mL/hr, Intravenous, DAILY PRN, Starting on Fri06/14/24 at 1436, Until Fri06/15/24 at 1406, Side port TKO rate, per CC nrusing protocol. Rate/Dose Verify 06/15/2024 2:00 PM [...] Myers RN)1233 (Given - Provider: Mary Lou Lane, JAMIE)1753 (Given - Provider: Mary Lou Lane, JAMIE) 0000 (Given - Provider: Christina Myers RN)0530 (Given - Provider: Christina Myers RN)1206 (Given - Provider: Michelle Orozco, JAMIE)1744 (Given - Provider: Michelle Orozco, JAMIE) 0002 (Given - Provider: Christina Myers RN)0605 (Given - Provider: Christina Myers RN)1203 (Given - Provider: Shazia Mcdonald, JAMIE) aspirin chewable tablet 81 mg(Linked Group 2) 81 mg, Oral, DAILY, First dose on Fri06/14/24 at 1500, Until Discontinued, Routine 0823 (Given - Provider: Mary Lou Lane RN) 0812 (Given - Provider: Michelle Orozco, JAMIE) 0837 (Given - Provider: Shazia Mcdonald RN) [...] RN) 0812 (Given - Provider: Michelel Orozco RN)1744 (Given - Provider: Michelle Orozco RN) 0837 (Given - Provider: Shazia Mcdonald RN) clopidogreL (Plavix) tablet 75 mg 75 mg, Oral, DAILY, First dose on Fri06/15/24 at 0900, Until Discontinued, Routine 0823 (Given - Provider: Mary Lou Lane RN) 0812 (Given - Provider: Michelle Orozco RN) 0837 (Given - Provider: Shazia Mcdonald, JAMIE) empagliflozin (Jardiance) tablet 25 mg 25 mg, [...] Routine 0821 (Given - Provider: Mary Lou Lane RN) [...] BG 131) 0000 (Not Given - Provider: hCristina Myers RN - Reason: Order parameters not met - Comment: BG 59)0400 (Not Given - Provider: Christina Myers RN - Reason: Order parameters not met - Comment: BG 79)0800 (Not Given - Provider: Michelle Orozco RN - Reason: Order parameters not met - Comment: BG 130)1206 (Given - Provider: Mihcelle Orozco RN - Comment: BG 173)1600 (Not [...] Reason: Patient/family refused)2020 (Patch Applied - Provider: Christian Myers RN) 0819 (Patch Removed - Provider: Michelle Orozco RN)0820 (Patch Applied - Provider: Michelle Orozco RN)2020 (Patch Removed - Provider: Christina Myers RN) [...] Patient/family refused) 0812 (Given - Provider: Michelle Orozco, JAMIE) 0900 (Not Given - Provider: Shazia Mcdonald, JAMIE - Reason: Patient/family refused) oxymetazoline (Afrin) 0.05 % nasal spray 2 spray 2 spray, Each Nare, 2 TIMES DAILY, 6 doses, First dose on Fri06/20/24 at 2100, Last dose on Fri06/23/24 at 0900, Process Manager recommended duration is 3 days., Routine 2043 (Given - Provider: Christina Myers RN) 09 (Not Given - Provider: Shazia [...] Provider: Christina Myers RN - Comment: 117/75) 08 (Given - Provider: Michelle Orozco RN)2041 (Given - Provider: Christina Myers RN - Comment: [phone]) 0837 (Given - Provider: Shazia Mcdonald RN) [...] Starting on Miguelina 06/17/24 at 0000, Until 06/21/24 at 1534, Constipation, Starting post-op day 3., [...] Lou Lane RN)2018 (See Alternative - Provider: Chritsina Myers RN) oxyCODONE (Roxicodone) tablet 5 mg(Linked [...] oral route first line., Routine sodium chloride (Schaller) 0.65 % nasal spray 1 spray 1 [...] 6 hours upon arrival to Unit. Give NC if unable to take PO, Routine Group 3: POCT Fingerstick Glucose (CANCELED) Routine, EVERY 4 HOURS, First occurrence on 06/19/24 at 0800, Until Specified, Consider choosing EVERY [...] Routine documented in this encounter Care Teams Ui Lead Developer Relationship Specialty Start Date End Date Mauro Berumen MD [address] [place] [address] PCP - General Family Medicine 06/02/24 documented as of this encounter
--- OUTSIDE RECORDS SUMMARY | 2024-08-13 17:12 | XMS_ITS | Encounter Summary ---
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 Vitals: Last Set of Vitals and range of vitals over past 24 hours: Range last 24 hrs Temperature Temp: [36 ??C (96.8 ??F)-37 ??C (98.6 ??F)] Heart Rate Heart Rate: [57-72] Blood Pressure BP: (99-138)/(66-86) Respiratory Rate Resp: [13-24] SpO2 SpO2: [90 %-98 %] Device Interrogation: Data Generator: [employer] Amplia MRI Quad AUTOMOBILE MECHANIC MOTOR-D [id number] / [id number] - Left-sided implant; 06/16/19 RA Lead: Medtronic [id number] CapSureFix Novus [id number]; 06/16/19 RV Lead: Medtronic [id number] / [id number]; 06/16/19 LV Lead: Medtronic [id number] Attain Performa MRI / [id number]; 06/16/19 Diagnostics Pacing Mode: DDD @ 50/130 [...] scheduled. Ross Corbin PA-C, PhD 06/14/2024 Pager: [phone] documented in this encounter Plan of Treatment Upcoming Encounters Date Type Department Care Team (Late st Contact Info) Description 08/14/2024 Hospital Encounter Heart and Vascular Unit Level 3 [place] [address] Jim Benites MD [facility] [place] [address] documented as of this encounter Visit Diagnoses Diagnosis Cardiac resynchronization therapy defibrillator (AUTOMOBILE MECHANIC MOTOR-D) in place [Z95.810] documented in this encounter Care Teams Male Infertility Specialist Relationship Specialty Start Date End Date Mauro Berumen MD [address] [place] [address] PCP - General Family Medicine 06/02/24 documented as of this encounter
--- OUTSIDE RECORDS SUMMARY | 2024-08-13 17:14 | XMS_ITS | Encounter Summary ---
Author Organization [facility] [place] [address] Care Team Providers Care Cancer Registrar Name Role Phone Mauro Berumen MD Primary Care Provider [phone] Reason for Visit * Auth/Cert Specialty Diagnoses / Procedures Referred By Carroll t Referred To Contact Diagnoses STEMI (ST elevation myocardial infarction) STEMI Procedures CARDIAC CATHETERIZATION EMERGENCY Delroy Monterroso MD [facility] [address] [facility] Referral ID Status Reason Start Date Expiration Date Visits Re quested Visits Authorized [id number] 1 1 Encounter Details Date Type Department Care Team (Late st Contact Info) Description 06/14/2024 7:30 AM EST - 06/14/2024 2:08 PM EST Surgery [place] [address] Bobby Loja MD [facility] [place] [address] @CABG, USING ARTERIAL GRAFT;SINGLE ARTERIAL GRAFT (WRVU 33.75) Social History Tobacco Use Types Packs/Day Years Used Date Smoking Tobacco: Every Day Cigarettes Smokeless Tobacco: Never Tobacco Cessation:Ready to Q uit: No; Counseling Given: Yes [facility] Utilities Answer Date Recorded In the [...] any time in the past 12 m [facility], were you homeless or living [...] Patient Age: 69 y.o. Birthdate: 1955 Language: Divehi Race: Choose not to Disclose Ethnicity: Not nor Admit Date: 06/02/2024 Discharge Date: 06/21/2024 Attending Physician: Bobby Loja MD Follow-up Recommendations for Providers: Please continue routine management of cardiovascular risk factors including blood pressure, lipids,glucose, etc. Please note any changes to medications. Patient to follow up with PCP, Mauro Berumen MD, in 1-2 weeks. Patient to follow up with Math Interventionist, Kristen Cardenas in 2-3 weeks. Patient to follow up with Cardiac Surgeon, Dr. Bobby Loja, in 4 wks. Inpatient Provider Contact Information: [facility] Section of Cardiac Surgery [facility] [address] FAX [phone] Discharge Diagnoses (Hospital Problems) Primary Diagnoses: STEMI [...] (WRVU 33.75) performed by Bobby Loja MD [facility] MAIN OR PRO CABG, ARTERY-VEIN, TWO N/A 06/14/2024 @CABG, TWO VENOUS GRAFTS & ARTERIAL GRAFT (WRVU 7.93) performed by Bobby Loja MD at [facility] OR PRO ENDOSCOPY W/VIDEO-ASST VEIN HARVEST, CABG N/A 06/14/2024 ENDOSCOPIC HARVEST VEIN(S) FOR CABG (WRVU 0.31) performed by Bobby Loja MD at [facility] MAIN OR PRO EXC MEDIASTINAL TUMOR N/A 06/14/2024 @EXCISION OF MEDIASTINAL TUMOR (WRVU 19.55) performed by Bobby Loaj MD at [facility] MAIN OR PRO INSERT INTRA-AORTIC BALLOON ASST DEVICE PERCUTANEOUS N/A 06/13/2024 @INSERTION OF IABP,PERCUTANEOUS (WRVU 4.84) performed by Nuha Shen MD at [facility] CATH LABS PRO UNLISTED CARDIAC SURG PROCEDURE N/A 06/14/2024 EXPLORATION AND OVERSEW ATRIAL APPENDAGE (WRVU 5.94) performed by Bobby Loja MD at [facility] [place] Prior To Admission Medications [...] y.o. male with a PMHx of previous IL s/p PCI x3, ICM/HFrEF (LVEF 30%) s/p ICD, DMII, HTN, HLD, remote melanoma, and smoker who presented to [facility] last night via EMS after developing acute, severe chest pain while watching TV. Patient was ruled in for STEMI, given TNK, ASA, plavix, heparin gtt, and sent to [facility] [place] for coronary angiography. LHC demonstrated severely calcified left coronary system with notable LCx 75/80% lesions and REBEAMER OM1 with ISR with collateral retrograde filling, [...] Hospital Course: George Mehta was admitted to [facility] on 06/02/2024 via the CardiologyService with an anterior STEMI after receiving lytics at OSH. He was brought to the quality assurance/r&d lab technician which showed severely calcified left coronary system with notable LCx 75/80% lesions and REBEAMER OM1 with ISR with collateral retrograde filling, [...] 2 tablespoons of dried fruit. Milk and kj-zxqqy-mlhtz yogurt have 15 grams of carbs in a serving. A serving is 1 cup of milk or 3/4 cup (6 oz) of hn-gyrqd-vgbcz yogurt. Starchy vegetables have 15 grams of carbs in a serving. A serving is ?? cup of mashed potatoes or sweet potato; 1 cup winter squash; ?? of a small baked potato; ?? cup of cooked beans; or ?? cup cooked corn or green peas. Learn how much carbs to eat each day and at each meal. A dietitian or certified phlebotomy technician can teach you how to keep [...] Bobby Loja and/or the Cardiac Surgery Physician Reference Data Expert Team may be reached at . Weight: [...] Dr. Bobby Loja. You may use a Les[place] Track or treadmill but avoid any pulling [...] friends, go to a movie, go to zoroastrianism, etc. Heavy activities: No hunting, skiing, jogging, [...] should resume a low fat, low cholesterol, [place] [employer] Diet/Diabetic diet. Driving: No driving [...] while being managed by your PCP and/or Math Interventionist. For future medication refills, please refer to your PCP and/or Math Interventionist after your discharge from our service. Thank you REMOVE CHEST TUBE SUTURES ON OR AFTER 06/24/2024 Home oxygen therapy: N/A Follow up appointments: You should follow up with your PCP, Mauro Berumen MD, in 1-2 weeks. You should follow up with your Math Interventionist, Dr CARDENAS. You have an appointment with your Cardiac Surgeon, Dr. Bobby Loja, in 4 wks. Cardiac Rehabilitation: George Mehta was seen today regarding participation in the outpatient Phase 2 Cardiac Rehabilitation at [facility]. The patient agrees to a referral to this program. The referral will be sent at discharge and the patient should be contacted by the program within 1-2 weeks from discharge. Future Appointments and Orders Future Orders Complete By Expires Referral to Cardiac Rehab [[id number] Custom] As directed Process Instructions: If no progress note charted, please enter Clinical details in comments. Scheduling Instructions: Questions: My question or request is: s/p CABG- cardiac rehab at [facility] Referral to Home Health [REF34 Custom] As directed Process Instructions: If no progress note charted, please enter Clinical details in comments. Scheduling Instructions: Comments: Please evaluate George Mehta for admission to Home Health. [address] [facility] [address] (home) Date of : 1955 Inpatient DOCUMENTATION FOR VNA SERVICES (INCLUDING THOSE PATIENTS WITH MEDICARE COVERAGE REQUIRINGHOME VNA SERVICES AND/OR HOSPICE SERVICES) PATIENT'S LOCATION: George Mehta [address] [facility] [address] (home) Telephone Information: Washing Machine Assembler's Name: self In discussion with the attending physician, it is certified that this patient is under their care and that they, or a Nurse Practitioner, or Physician Reference Data Expert who is working directly with them, hada [...] for services as follows: HOME HEALTH AGENCY: [facility] [address] [place] [id number] RN orders: Cardiopulmonary assessment, incisional assessment, assess [...] issues please call the Cardiology Office at [phone] FOR MEDICARE ONLY: (please delete this section [...] care: As above. Signed: KEILA HANLEY APRN [facility] Section of Cardiac Surgery [facility] [address] FAX [phone] Date: 06/21/2024 CC: MD Antonino Tinajero Joshua R, PA [address] [place] [address] [place] [address] documented in this encounter Discharge Instructions * [...] 2 tablespoons of dried fruit. Milk and pz-cddmd-lwjul yogurt have 15 grams of carbs in a serving. A serving is 1 cup of milk or 3/4 cup (6 oz) of fc-llcvx-kvlkf yogurt. Starchy vegetables have 15 grams of carbs in a serving. A serving is ?? cup of mashed potatoes or sweet potato; 1 cup winter squash; ?? of a small baked potato; ?? cup of cooked beans; or ?? cup cooked corn or green peas. Learn how much carbs to eat each day and at each meal. A dietitian or certified phlebotomy technician can teach you how to keep [...] Bobby Loja and/or the Cardiac Surgery Physician Reference Data Expert Team may be reached at . Weight: [...] Dr. Bobby Loja. You may use a [place] Track or treadmill but avoid any pulling [...] friends, go to a movie, go to zoroastrianism, etc. Heavy activities: No hunting, skiing, jogging, [...] should resume a low fat, low cholesterol, [place] [employer] Diet/Diabetic diet. Driving: No driving [...] while being managed by your PCP and/or Math Interventionist. For future medication refills, please refer to your PCP and/or Math Interventionist after your discharge from our service. Thank you REMOVE CHEST TUBE SUTURES ON OR AFTER 06/24/2024 Home oxygen therapy: N/A Follow up appointments: You should follow up with your PCP, Mauro Berumen MD, in 1-2 weeks. You should follow up with your Math Interventionist, Dr CARDENAS. You have an appointment with your Cardiac Surgeon, Dr. Bobby Loja, in 4 wks. Cardiac Rehabilitation: George Mehta was seen today regarding participation in the outpatient Phase 2 Cardiac Rehabilitation at [facility]. The patient agrees to a [...] of your patient's venous access was performed [facility] theVascular Access Service. The following tasks [...] of your patient's venous access was performed [facility] theVascular Access Service. The following tasks [...] or weekly) [] Other * Alejandra Baumann, COMMERCIAL CREDIT OFFICER - 06/21/2024 7:05 AM EST Follow Up [...] MARIALUISA clipping. PMH of chronic HFrEF s/p GAS OPERATIONS ANALYST/ICD, IDDM2, HTN, HLD, remote melanoma, active smoker. [...] 2 tablespoons of dried fruit. Milk and zz-ebobr-duxjk yogurt have 15 grams of carbs in a serving. A serving is 1 cup of milk or 3/4 cup (6 oz) of mq-ayeod-okdoy yogurt. Starchy vegetables have 15 grams of carbs in a serving. A serving is ?? cup of mashed potatoes or sweet potato; 1 cup winter squash; ?? of a small baked potato; ?? cup of cooked beans; or ?? cup cooked corn or green peas. Learn how much carbs to eat each day and at each meal. A dietitian or certified phlebotomy technician can teach you how to keep [...] cheese, and peanut butter. Alejandra Baumann APRN [facility] [place] [place] Endocrinology Diabetes Management Pager [phone] Weekends please page [phone] * Eric Packer PA - 06/20/2024 7:44 AM EST Cardiac Surgery Progress Note George Mehta is a 69 y.o. male with a history of CAD s/p multiple PCI who presented with an anterior STEMI and was given lytics. Cath showed MV CAD without culprit vessel. He is now 6 Days Post-OpCABGx3 and MARIALUISA clipping. PMH of chronic HFrEF s/p GAS OPERATIONS ANALYST/ICD, IDDM2, HTN, HLD, remote melanoma, active smoker. 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 06/20/2024 Between the hours of 1800 - 0600 and on the weekends please page [phone]. * Alejandra Baumann APRN - 06/20/2024 7:21 AM EST Follow Up Diabetes Consult Patient Interview Blood glucose values and insulin use reviewed. music arranger BG to 59 despite decrease in glargine [...] MARIALUISA clipping. PMH of chronic HFrEF s/p GAS OPERATIONS ANALYST/ICD, IDDM2, HTN, HLD, remote melanoma, active smoker. music arranger BG to 59 despite decrease in glargine [...] before meals based on ISF 20 Alejandra Winn, COMMERCIAL CREDIT OFFICER [facility] [place] [place] Endocrinology Diabetes Management Pager [phone] Weekends please page [phone] Insulin Discharge Instructions Preliminary Diabetes Discharge Instructions [...] juice or regular (not diet) soda 6 TagSeats small box of raisins 4 glucose tablets [...] 2 tablespoons of dried fruit. Milk and bq-cwrog-hyvei yogurt have 15 grams of carbs in a serving. A serving is 1 cup of milk or 3/4 cup (6 oz) of qf-rtdcl-nuxkg yogurt. Starchy vegetables have 15 grams of carbs in a serving. A serving is ?? cup of mashed potatoes or sweet potato; 1 cup winter squash; ?? of a small baked potato; ?? cup of cooked beans; or ?? cup cooked corn or green peas. Learn how much carbs to eat each day and at each meal. A dietitian or certified phlebotomy technician can teach you how to keep [...] MARIALUISA clipping. PMH of chronic HFrEF s/p GAS OPERATIONS ANALYST/ICD, IDDM2, HTN, HLD, remote melanoma, active smoker. 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 Jeffy Hood MD 06/19/2024 Between the hours of 1800 - 0600 and on the weekends please page [phone]. * Alejandra Baumann APRN - 06/19/2024 7:09 AM EST Follow Up Diabetes Consult Patient Interview Blood glucose values and insulin use reviewed. Jardiance added back yesterday, intertype operator low BGto 51. Glargine reduced to [...] MARIALUISA clipping. PMH of chronic HFrEF s/p GAS OPERATIONS ANALYST/ICD, IDDM2, HTN, HLD, remote melanoma, active smoker. Jardiance added back yesterday. music arranger low BG to 51. Glargine reduced to [...] 2 tablespoons of dried fruit. Milk and rc-lqcwd-uvcam yogurt have 15 grams of carbs in a serving. A serving is 1 cup of milk or 3/4 cup (6 oz) of xu-edffa-dsqzl yogurt. Starchy vegetables have 15 grams of carbs in a serving. A serving is ?? cup of mashed potatoes or sweet potato; 1 cup winter squash; ?? of a small baked potato; ?? cup of cooked beans; or ?? cup cooked corn or green peas. Learn how much carbs to eat each day and at each meal. A dietitian or certified phlebotomy technician can teach you how to keep [...] cheese, and peanut butter. Alejandra Baumann APRN [facility] [place] [place] Endocrinology Diabetes Management Pager [phone] Weekends please page [phone] * Hilda Resendez PTA - 06/18/2024 9:19 AM EST Physical Therapy Note 2 Patient profile: George Mehta is a 69 y.o. male with a history of CAD s/p multiple PCI who presented with an anterior STEMI and was given lytics. Cath showed MV CAD without culprit vessel. He is now 1 Day Post-Op CABGx3 and MARIALUISA clipping. PMH of chronic HFrEF s/p GAS OPERATIONS ANALYST/ICD, IDDM2, HTN, HLD, remote melanoma, active smoker. Interval History: Per last cardiac surgery note on 06/18/2024 Cr improved 1.4 on lasix 40 iv bid -1.5L, made 2.5L urine Coreg, entresto restarted Floor status Social History: Pt lives with his in a 1 level apartment with no steps to enter. 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 He drives. He sleeps in a recliner at baseline. Precautions/Special Considerations: Sternal precautions, PIV, at risk to fall, PPM Mobility and Positioning Recommendations: Pt to utilize no AD, supervision for ambulation and transfers w/ staff forester as able. Please encourage up to chair [...] least restrictive device Time IN / OUT: 0023-3615 Total Time: 11 minutes; TEF 1 Hilda Resendez PTA Pager: [phone] Physical Therapy Inpatient Rehabilitation Department * Keila [...] MARIALUISA clipping. PMH of chronic HFrEF s/p GAS OPERATIONS ANALYST/ICD, IDDM2, HTN, HLD, remote melanoma, active smoker. 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 Restarting jardiance #Active smoker Duoneb prn Dispo: CVCC, Full code, tx to floor Discussed with attending surgeon on rounds this morning. KEILA HANLEY, JOSÉ ANTONIO 06/18/2024 Between the hours of 1800 - 0600 and on the weekends please page [phone]. * Alejandra Baumann APRN - 06/17/2024 3:29 [...] MARIALUISA clipping. PMH of chronic HFrEF s/p GAS OPERATIONS ANALYST/ICD, IDDM2, HTN, HLD, remote melanoma, active smoker. [...] based on ISF 20 Alejandra Baumann APRN [facility] [place] [place] Endocrinology Diabetes Management Pager [phone] Weekends please page [phone] 35 minutes were spent over the course [...] MARIALUISA clipping. PMH of chronic HFrEF s/p GAS OPERATIONS ANALYST/ICD, IDDM2, HTN, HLD, remote melanoma, active smoker. [...] 0600 and on the weekends please page [phone]. * Raymond Carlton MD - 06/16/2024 1:11 PM EST CARDIAC CRITICAL CARE ATTENDING STAFF PROGRESS NOTE Patient seen and examined. George Mehta is a 69 y.o. male with: Active Hospital Problems Diagnosis STEMI (ST elevation myocardial infarction) Cardiac resynchronization therapy defibrillator (GAS OPERATIONS ANALYST-D) - Medtronic Amplia Cardiomyopathy, ischemic Acute on chronic heart failure with reduced ejection fraction (HFrEF, <= 40%) Coronary artery disease involving [place] coronary artery of [place] heart without angina pectoris Type 2 diabetes [...] encouragement provided Patient screened for f/u and commercial real estate underwriter met pt at bedside. Pt states [...] unless consulted in the interim. RICHA Simmons Fuse Assembler * Octaviano Horvath PA - 06/16/2024 8:07 AM EST Cardiac Surgery Progress Note George Mehta is a 69 y.o. male with a history of CAD s/p multiple PCI who presented with an anterior STEMI and was given lytics. Cath showed MV CAD without culprit vessel. He is now 2 Days Post-OpCABGx3 and MARIALUISA clipping. PMH of chronic HFrEF s/p GAS OPERATIONS ANALYST/ICD, IDDM2, HTN, HLD, remote melanoma, active smoker. [...] 0600 and on the weekends please page [phone]. * Jono Fernandez, PT - 06/15/2024 4:09 PM EST Physical Therapy Evaluation Patient profile: George Mehta is a 69 y.o. male with a history of CAD s/p multiple PCI who presented with an anterior STEMI and was given lytics. Cath showed MV CAD without culprit vessel. He is now 1 Day Post-Op CABGx3 and MARIALUISA clipping. PMH of chronic HFrEF s/p GAS OPERATIONS ANALYST/ICD, IDDM2, HTN, HLD, remote melanoma, active smoker. 24h Events: From OR on Dobutamine IABP removed Bedrest ended ~2100, sedation weaned Extubated ~0200 Dobutamine weaned to 1 this morning, CI 2.6, shut off and repeat CI 2.4 Social History: Pt lives with his in a 1 level apartment with no steps to enter. 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 He drives. He sleeps [...] outlined inthis evaluation. JONO FERNANDEZ, PT Pager: [phone] Physical Therapy Inpatient Rehabilitation Department Time IN / OUT: 1116-4726 Total Time: 33 (eval) minutes * Alejandra Baumann APRN - 06/15/2024 11:39 AM EST Follow Up Diabetes Consult Patient Interview Blood glucose values and insulin use reviewed. Pt remains on an insulin drip today following [id number] MARIALUISA clipping. George continues to complain of [...] MARIALUISA clipping. PMH of chronic HFrEF s/p GAS OPERATIONS ANALYST/ICD, IDDM2, HTN, HLD, remote melanoma, active smoker. [...] based on ISF 20 Alejandra Baumann APRN [facility] [place] [place] Endocrinology Diabetes Management Pager [phone] Weekends please page [phone] 50 minutes were spent over the course [...] elevation myocardial infarction) Cardiac resynchronization therapy defibrillator (GAS OPERATIONS ANALYST-D) - Medtronic Amplia Cardiomyopathy, ischemic Acute on chronic heart failure with reduced ejection fraction (HFrEF, <= 40%) Coronary artery disease involving [place] coronary artery of [place] heart without angina pectoris Type 2 diabetes [...] with h/o DM, CAD with prior PCI, GAS OPERATIONS ANALYST-D who presented with crushing chest pain, found [...] MARIALUISA clipping. PMH of chronic HFrEF s/p GAS OPERATIONS ANALYST/ICD, IDDM2, HTN, HLD, remote melanoma, active smoker. [...] sternotomy dressing CDI, saphenectomy dressing CDi Tubes/Lines/Drains: [place], RIJ, A-line, Mediastinal marcos and bilateral pleural [...] 0600 and on the weekends please page [phone]. * Yoli Donaldson RCP - 06/15/2024 5:35 [...] with h/o DM, CAD with prior PCI, GAS OPERATIONS ANALYST-D who presented with crushing chest pain, found [...] 1.5 PTT 31 T/L/D Barr ETT CVL [place] Pacing wires ASSESSMENT, MANAGEMENT, and DECISION MAKIN y.o. male with h/o DM, CAD with prior PCI, GAS OPERATIONS ANALYST-D who presented with crushing chest pain, found [...] 0600 and on the weekends please page [phone]. * Chloé Cortez - 06/14/2024 9:36 AM [...] unless consulted in the interim. Chloé Cortez Medical Policy Specialist * Jim Benites MD - 06/13/2024 [...] - Mildly dilated left ventricle size with dbkpqinx-yn-fpkfctvl decreased LV systolic function. LV ejection fraction [...] ACS/crushing chest pain, likely due to lateral IL, found to have surgical CAD with viability [...] (abstinent since admission), ASCVD with multiple prior IL and PCIs, ICM/HFrEF LVEF 30% (all territories [...] elevation myocardial infarction) Cardiac resynchronization therapy defibrillator (GAS OPERATIONS ANALYST-D) - Medtronic Amplia Cardiomyopathy, ischemic Acute on chronic heart failure with reduced ejection fraction (HFrEF, <= 40%) Coronary artery disease involving [place] coronary artery of [place] heart without angina pectoris Type 2 diabetes [...] PCP: Mauro Berumen MD PCP phone number: [phone] Date of Admission: 06/02/2024 ( Hospital Day 10 days ) Attending:Ethel Carrillo MD ID: 69 y.o. male with a h/o DM type 2, HTN, HLD, current smoker (2-3 cigarettes/day), HFrEF with anICD for low EF (~30%), and CAD with prior IL x3 with JENNA placed in [place], [facility], PAD, presented to [facility] with 1 hour of retrosternal CP (05/13) while watching TV, found to have STEMI. Active Problems: Active Hospital Problems Diagnosis STEMI (ST elevation myocardial infarction) Cardiac resynchronization therapy defibrillator (GAS OPERATIONS ANALYST-D) - Medtronic Amplia Cardiomyopathy, ischemic Acute on chronic heart failure with reduced ejection fraction (HFrEF, <= 40%) Coronary artery disease involving [place] coronary artery of [place] heart without angina pectoris Type 2 diabetes [...] in the last 7068 hours. Invalid input(s): [id number] Recent Labs 06/12/24 0425 06/11/24 2356 06/11/24 2025 06/11/24 1624 06/11/24 1108 06/11/24 0748 06/11/24 0357 06/11/24 0050 06/10/24 1922 06/10/24 1735 06/10/24 1125 06/10/24 0746 POCGLU 132 135 210* 81 233* 184 132 144 236* 123 216* 206* Heme No results for input(s): LDH, HAPTOGLOBIN, URICACID in the last 168 hours. ABG (Arterial Blood Gas) No results found for: PHART, PO2ART, [id number], [id number] Microbiology: Microbiology Results (Last 30 days) No results found for the last 720 hours. Imaging: Results for orders placed or performed during the hospital encounter of 06/02/24 XR Chest One View (Exam End: 06/03/2024 2:41 AM) Result Value WORKSTATION ID [id number] Impression No radiographically evident acute cardiopulmonary process. Thank you for letting us participate in the care of this patient. If you are a health care provider and have any questions regarding this report, please contact the number below. For patients who have questions please contact the health healthcare insurance sales agent that requested your imaging first. Electronically signed by: Corazon Mauro MD, [facility] ([phone]), at 06/03/2024 3:06 AM MRI Cardiac Morphology Function wwo Contrast (Exam End: 06/07/2024 1:10 PM) Result Value WORKSTATION ID [id number] Impression - Findings consistent with an ischemic [...] - Mildly dilated left ventricle size with gqpqkusy-mg-zwulbohd decreased LV systolic function. LV ejection fraction [...] have questions please contact the health healthcare insurance sales agent that requested your imaging first. Electronically signed by: Kriss Alonzo MD, [facility] ([phone]), at 06/07/2024 2:[address] Chest wo Contrast (Generic) (Exam End: 06/03/2024 4:33 PM) Result Value WORKSTATION ID [id number] Impression Cardiomegaly. Biventricular ICD leads in place. Thank you for letting us participate in the care of this patient. If you are a health care provider and have any questions regarding this report, please contact the number below. For patients who have questions please contact the health healthcare insurance sales agent that requested your imaging first. Electronically signed by: Stuart Aponte MD, [facility] ([phone]), at 06/03/2024 4:47 PM XR Chest PA & Lateral (Generic) (Exam End: 06/07/2024 7:03 AM) Result Value WORKSTATION ID [id number] Impression Biventricular ICD leads intact and in [...] have questions please contact the health healthcare insurance sales agent that requested your imaging first. Electronically signed by: Stuart Aponte MD, [facility] ([phone]), at 06/07/2024 10:45 AM TTE: Limited echo performed by fellow control systems developer to assess LV function. Left ventricle is [...] ischemic cardiomyopathy with HFrEF (~30% EF), prior [place] with stents, DM type 2, HTN, HLD, active smoker, presented with anterior STEMI. Angiography revealed severe multivessel CAD with extensive calcification and YUE 3 flow in all vessels, without a clear culprit lesion. Currently pain-free after TNK, Plavix, ASA, and heparin, with mildly elevated LVEDP at 40 mmHg and mild volume overload. 06/12/24: Patient stable, asymptomatic. Plan to go to quality assurance/r&d lab technician for balloon pump tomorrow, then willgo [...] CODE Dain Colón MD Cardiology, M1-S2, Pager #[phone] 06/12/24 Associated attestation - Ethel Carrillo MD [...] (abstinent since admission), ASCVD with multiple prior IL and PCIs, ICM/HFrEF LVEF 30% (all territories [...] of two midnights or is on the [facility] inpatient only procedure list (status C) due to: acute myocardial infarction requiring titration of IV medication and fluid monitoring and decompensated congestive heart failure requiring IV medication and fluid monitoring Ethel Carrillo MD Cardiovascular Medicine Personal Pager [phone] 06/12/2024 9:12 PM * Jaleesa Baumannewa Adams, COMMERCIAL CREDIT OFFICER - 06/11/2024 4:21 PM EST Images from [...] too aggressive, suggest ICR 1:6 (rule of [id number] = 6.25). George is up and walking [...] ischemic cardiomyopathy with HFrEF (~30% EF), prior [place] with stents, DM type 2, HTN, HLD, [...] ac, metformin 1000mg BID Alejandra Baumann APRN [facility] [place] [place] Endocrinology Diabetes Management Pager [phone] Weekends please page [phone] 35 minutes were spent over the course [...] PCP: Mauro Berumen MD PCP phone number: [phone] Date of Admission: 06/02/2024 ( Hospital Day 9 days ) Attending:Melida Valdes MD ID: 69 y.o. male with a h/o DM type 2, HTN, HLD, current smoker (2-3 cigarettes/day), HFrEF with anICD for low EF (~30%), and CAD with prior [place] x3 with JENNA placed in [place], [facility], PAD, presented to [facility] with 1 hour of retrosternal CP (05/13) while watching TV, found to have STEMI. Active Problems: Active Hospital Problems Diagnosis STEMI (ST elevation myocardial infarction) Cardiac resynchronization therapy defibrillator (GAS OPERATIONS ANALYST-D) - Medtronic Amplia Cardiomyopathy, ischemic Acute on chronic heart failure with reduced ejection fraction (HFrEF, <= 40%) Coronary artery disease involving [place] coronary artery of [place] heart without angina pectoris Type 2 diabetes [...] in the last 7068 hours. Invalid input(s): [id number] Recent Labs 06/11/24 0357 06/11/24 0050 06/10/24 1922 06/10/24 1735 06/10/24 1125 06/10/24 0746 06/10/24 0423 06/10/24 0005 06/09/24 2036 06/09/24 1727 06/09/24 1152 06/09/24 0810 POCGLU 132 144 236* 123 216* 206* 154 125 197 174 211* 209* Heme No results for input(s): LDH, HAPTOGLOBIN, URICACID in the last 168 hours. ABG (Arterial Blood Gas) No results found for: PHART, PO2ART, EBO2KZC, KEI9MSD Microbiology: Microbiology Results (Last 30 days) No results found for the last 720 hours. Imaging: Results for orders placed or performed during the hospital encounter of 06/02/24 XR Chest One View (Exam End: 06/03/2024 2:41 AM) Result Value WORKSTATION ID [id number] Impression No radiographically evident acute cardiopulmonary process. Thank you for letting us participate in the care of this patient. If you are a health care provider and have any questions regarding this report, please contact the number below. For patients who have questions please contact the health healthcare insurance sales agent that requested your imaging first. Electronically signed by: Corazon Mauro MD, [facility] ([phone]), at 06/03/2024 3:06 AM MRI Cardiac Morphology Function wwo Contrast (Exam End: 06/07/2024 1:10 PM) Result Value WORKSTATION ID [id number] Impression - Findings consistent with an ischemic [...] - Mildly dilated left ventricle size with ezmitxum-au-lwgcfrxf decreased LV systolic function. LV ejection fraction [...] have questions please contact the health healthcare insurance sales agent that requested your imaging first. Electronically signed by: Kriss Alonzo MD, [facility] ([phone]), at 06/07/2024 2:[address] Chest wo Contrast (Generic) (Exam End: 06/03/2024 4:33 PM) Result Value WORKSTATION ID [id number] Impression Cardiomegaly. Biventricular ICD leads in place. Thank you for letting us participate in the care of this patient. If you are a health care provider and have any questions regarding this report, please contact the number below. For patients who have questions please contact the health healthcare insurance sales agent that requested your imaging first. Electronically signed by: Stuart Aponte MD, [facility] ([phone]), at 06/03/2024 4:47 PM XR Chest PA & Lateral (Generic) (Exam End: 06/07/2024 7:03 AM) Result Value WORKSTATION ID [id number] Impression Biventricular ICD leads intact and in [...] have questions please contact the health healthcare insurance sales agent that requested your imaging first. Electronically signed by: Stuart Aponte MD, [facility] ([phone]), at 06/07/2024 10:45 AM TTE: Limited echo performed by fellow control systems developer to assess LV function. Left ventricle is [...] ischemic cardiomyopathy with HFrEF (~30% EF), prior [place] with stents, DM type 2, HTN, HLD, [...] on placing this weekend and transfer to [facility], likely [place]. #ASCVD / STEMI: -Holding [...] CODE Dain Colón MD Cardiology, M1-S2, Pager #[phone] 06/11/24 Associated attestation - Ethel Carrillo MD [...] (abstinent since admission), ASCVD with multiple prior IL and PCIs, ICM/HFrEF LVEF 30% (all territories [...] of two midnights or is on the [facility] inpatient only procedure list (status C) due to: acute myocardial infarction requiring titration of IV medication and fluid monitoring and decompensated congestive heart failure requiring IV medication and fluid monitoring Ethel Carrillo MD Cardiovascular Medicine Personal Pager [phone] 06/11/2024 9:35 PM * Hilary Belle - 06/10/2024 12:39 PM EST Nutrition Services Note George Mehta is a 69 y.o. male Reason for intervention: hospital day 9 Nutrition Plan: Continue diet order: 60/60/75 CHO Level 2 Encourage good PO Lasix and Insulin noted Monitor weight Patient scheduled for a hospital day 9 nutrition evaluation. Automotive Project Engineer attempted to meet with pt at bedside [...] unless consulted in the interim. Hilary Belle Fuse Assembler * Mariia Montero RN - 06/10/2024 12:23 PM EST I have met with the patient to: discuss discharge planning needs. provide the [facility] [place] [place], Office of Care Management letter from the Sap Specialist pertaining to rehab referrals. provide a letter describing our affiliations within the [facility] and educate about their right to choose where referrals are sent. provide a list of Home Health Agencies / Durable Medical Equipment vendors which serve their preferred geographic area. provided patient with [facility] Star Quality Rating handout. They have requested referrals to: [facility] [address] [place] [id number] RN / PT Anticipated d/c date: 06/20/24 Note routed to a Chief Communications Officer who will communicate referrals to facilities and provide any required information. * Dain Colón MD - 06/10/2024 7:17 AM EST Images from the original note were not included. . Cardiology Progress Note Patient info: Name: George Mehta : 1955 PCP: Mauro Berumen MD PCP phone number: [phone] Date of Admission: 06/02/2024 ( Hospital Day 8 days ) Attending:Melida Valdes MD ID: 69 y.o. male with a h/o DM type 2, HTN, HLD, current smoker (2-3 cigarettes/day), HFrEF with anICD for low EF (~30%), and CAD with prior [place] x3 with JENNA placed in [place], Melan[place], PAD, presented to [facility] with 1 hour of retrosternal CP (05/13) while watching TV, found to have STEMI. Active Problems: Active Hospital Problems Diagnosis STEMI (ST elevation myocardial infarction) Cardiac resynchronization therapy defibrillator (GAS OPERATIONS ANALYST-D) - Medtronic Amplia Cardiomyopathy, ischemic Acute on chronic heart failure with reduced ejection fraction (HFrEF, <= 40%) Coronary artery disease involving [place] coronary artery of [place] heart without angina pectoris Type 2 diabetes [...] in the last 7068 hours. Invalid input(s): [id number] Recent Labs 06/10/24 0423 06/10/24 0005 06/09/24 2036 06/09/24 1727 06/09/24 1152 06/09/24 0810 06/09/24 0440 06/09/24 0034 06/08/24 2027 06/08/24 1616 06/08/24 1235 06/08/24 0810 POCGLU 154 125 197 174 211* 209* 131 186 176 159 226* 190 Heme No results for input(s): LDH, HAPTOGLOBIN, URICACID in the last 168 hours. ABG (Arterial Blood Gas) No results found for: PHART, PO2ART, DHT2GGZ, KOS6AIV Microbiology: Microbiology Results (Last 30 days) No results found for the last 720 hours. Imaging: Results for orders placed or performed during the hospital encounter of 06/02/24 XR Chest One View (Exam End: 06/03/2024 2:41 AM) Result Value WORKSTATION ID [id number] Impression No radiographically evident acute cardiopulmonary process. Thank you for letting us participate in the care of this patient. If you are a health care provider and have any questions regarding this report, please contact the number below. For patients who have questions please contact the health healthcare insurance sales agent that requested your imaging first. Electronically signed by: Corazon Mauro MD, [facility] ([phone]), at 06/03/2024 3:06 AM MRI Cardiac Morphology Function wwo Contrast (Exam End: 06/07/2024 1:10 PM) Result Value WORKSTATION ID [id number] Impression - Findings consistent with an ischemic [...] - Mildly dilated left ventricle size with exiwjkpq-wu-wzpwauoj decreased LV systolic function. LV ejection fraction [...] have questions please contact the health healthcare insurance sales agent that requested your imaging first. Electronically signed by: Kriss Alonzo MD, [facility] ([phone]), at 06/07/2024 2:[address] Chest wo Contrast (Generic) (Exam End: 06/03/2024 4:33 PM) Result Value WORKSTATION ID [id number] Impression Cardiomegaly. Biventricular ICD leads in place. Thank you for letting us participate in the care of this patient. If you are a health care provider and have any questions regarding this report, please contact the number below. For patients who have questions please contact the health healthcare insurance sales agent that requested your imaging first. Electronically signed by: Stuart Aponte MD, [facility] ([phone]), at 06/03/2024 4:47 PM XR Chest PA & Lateral (Generic) (Exam End: 06/07/2024 7:03 AM) Result Value WORKSTATION ID [id number] Impression Biventricular ICD leads intact and in [...] have questions please contact the health healthcare insurance sales agent that requested your imaging first. Electronically signed by: Stuart Aponte MD, [facility] ([phone]), at 06/07/2024 10:45 AM TTE: Limited echo performed by fellow control systems developer to assess LV function. Left ventricle is [...] ischemic cardiomyopathy with HFrEF (~30% EF), prior IL with stents, DM type 2, HTN, HLD, [...] plan on placing this and transfer to [facility], likely Friday. #ASCVD / STEMI: -Holding [...] CODE Dain Colón MD Cardiology, M1-S2, Pager #[phone] 06/10/24 Associated attestation - Melida Valdes MD [...] a lytic and brought directly to the Certified Vehicle Fire Investigator. Cardiac catheterization demonstrated multivessel disease with severe [...] who is agreeable Melida Valdes MD Staff Math Interventionist * Cherelle Fregoso APRN - 06/09/2024 8:59 [...] ischemic cardiomyopathy with HFrEF (~30% EF), prior IL with stents, DM type 2, HTN, HLD, [...] PCP: Mauro Berumen MD PCP phone number: [phone] Date of Admission: 06/02/2024 ( Hospital Day 7 days ) Attending:Melida Valdes MD ID: 69 y.o. male with a h/o DM type 2, HTN, HLD, current smoker (2-3 cigarettes/day), HFrEF with anICD for low EF (~30%), and CAD with prior [place] x3 with JENNA placed in [place], [place]an[place], PAD, presented to [facility] with 1 hour of retrosternal CP (05/13) while watching TV, found to have STEMI. Active Problems: Active Hospital Problems Diagnosis STEMI (ST elevation myocardial infarction) Acute on chronic heart failure with reduced ejection fraction (HFrEF, <= 40%) Coronary artery disease involving [place] coronary artery of [place] heart without angina pectoris Type 2 diabetes [...] in the last 7068 hours. Invalid input(s): [id number] Recent Labs 06/09/24 0440 06/09/24 0034 06/08/24 2027 06/08/24 1616 06/08/24 1235 06/08/24 0810 06/08/24 0409 06/07/24 2357 06/07/24 2005 06/07/24 1631 06/07/24 1105 06/07/24 1103 POCGLU 131 186 176 159 226* 190 151 188 118 174 221* 250* Heme No results for input(s): LDH, HAPTOGLOBIN, URICACID in the last 168 hours. ABG (Arterial Blood Gas) No results found for: PHART, PO2ART, ARR7WRJ, CYI8MXP Microbiology: Microbiology Results (Last 30 days) No results found for the last 720 hours. Imaging: Results for orders placed or performed during the hospital encounter of 06/02/24 XR Chest One View (Exam End: 06/03/2024 2:41 AM) Result Value WORKSTATION ID [id number] Impression No radiographically evident acute cardiopulmonary process. Thank you for letting us participate in the care of this patient. If you are a health care provider and have any questions regarding this report, please contact the number below. For patients who have questions please contact the health healthcare insurance sales agent that requested your imaging first. Electronically signed by: Corazon Mauro MD, [facility] ([phone]), at 06/03/2024 3:06 AM MRI Cardiac Morphology Function wwo Contrast (Exam End: 06/07/2024 1:10 PM) Result Value WORKSTATION ID [id number] Impression - Findings consistent with an ischemic [...] - Mildly dilated left ventricle size with lbsnlpun-na-xlugtxue decreased LV systolic function. LV ejection fraction [...] have questions please contact the health healthcare insurance sales agent that requested your imaging first. Electronically signed by: Kriss Alonzo MD, [facility] ([phone]), at 06/07/2024 2:[address] Chest wo Contrast (Generic) (Exam End: 06/03/2024 4:33 PM) Result Value WORKSTATION ID [id number] Impression Cardiomegaly. Biventricular ICD leads in place. Thank you for letting us participate in the care of this patient. If you are a health care provider and have any questions regarding this report, please contact the number below. For patients who have questions please contact the health healthcare insurance sales agent that requested your imaging first. Electronically signed by: Stuart Aponte MD, [facility] ([phone]), at 06/03/2024 4:47 PM XR Chest PA & Lateral (Generic) (Exam End: 06/07/2024 7:03 AM) Result Value WORKSTATION ID [id number] Impression Biventricular ICD leads intact and in [...] have questions please contact the health healthcare insurance sales agent that requested your imaging first. Electronically signed by: Stuart Aponte MD, [facility] ([phone]), at 06/07/2024 10:45 AM TTE: Limited echo performed by fellow control systems developer to assess LV function. Left ventricle is [...] Infusions: heparin (porcine) infusion 1,400 Units/hr (06/08/24 615) PRN Meds:.glucose 40% oral geL OR dextrose [...] ischemic cardiomyopathy with HFrEF (~30% EF), prior IL with stents, DM type 2, HTN, HLD, [...] CODE Dain Colón MD Cardiology, M1-S2, Pager #[phone] 06/09/24 Associated attestation - Melida Valdes MD [...] a lytic and brought directly to the Certified Vehicle Fire Investigator. Cardiac catheterization demonstrated multivessel disease with severe [...] insertion low EF. Melida Valdes MD Staff Math Interventionist * Alejandra Baumann, JOSÉ ANTONIO - 06/08/2024 [...] ischemic cardiomyopathy with HFrEF (~30% EF), prior IL with stents, DM type 2, HTN, HLD, [...] to optimize glucose control Alejandra Baumann APRN [facility] [place] [place] Endocrinology Diabetes Management Pager [phone] Weekends please page [phone] 35 minutes were spent over the course [...] PCP: Mauro Berumen MD PCP phone number: [phone] Date of Admission: 06/02/2024 ( Hospital Day 6 days ) Attending:Melida Valdes MD ID: 69 y.o. male with a h/o DM type 2, HTN, HLD, current smoker (2-3 cigarettes/day), HFrEF with anICD for low EF (~30%), and CAD with prior [place] x3 with JENNA placed in [place], [place]an[place], PAD, presented to [facility] with 1 hour of retrosternal CP (05/13) while watching TV, found to have STEMI. Active Problems: Active Hospital Problems Diagnosis STEMI (ST elevation myocardial infarction) Acute on chronic heart failure with reduced ejection fraction (HFrEF, <= 40%) Coronary artery disease involving [place] coronary artery of [place] heart without angina pectoris Type 2 diabetes [...] in the last 7068 hours. Invalid input(s): [id number] Recent Labs 06/08/24 0409 06/07/24 2357 06/07/24 2005 06/07/24 1631 06/07/24 1105 06/07/24 1103 06/07/24 0745 06/07/24 0425 06/07/24 0008 06/06/24201706/06/24 1539 06/06/24 1339 POCGLU 151 188 118 174 221* 250* 175 127 182 143 147 317* Heme No results for input(s): LDH, HAPTOGLOBIN, URICACID in the last 168 hours. ABG (Arterial Blood Gas) No results found for: PHART, PO2ART, XFZ3ZHM, CAY1WLP Microbiology: Microbiology Results (Last 30 days) No results found for the last 720 hours. Imaging: Results for orders placed or performed during the hospital encounter of 06/02/24 XR Chest One View (Exam End: 06/03/2024 2:41 AM) Result Value WORKSTATION ID [id number] Impression No radiographically evident acute cardiopulmonary process. Thank you for letting us participate in the care of this patient. If you are a health care provider and have any questions regarding this report, please contact the number below. For patients who have questions please contact the health healthcare insurance sales agent that requested your imaging first. Electronically signed by: Corazon Mauro MD, [facility] ([phone]), at 06/03/2024 3:06 AM MRI Cardiac Morphology Function wwo Contrast (Exam End: 06/07/2024 1:10 PM) Result Value WORKSTATION ID [id number] Impression - Findings consistent with an ischemic [...] - Mildly dilated left ventricle size with qjluxlnr-gg-lsjgspyu decreased LV systolic function. LV ejection fraction [...] have questions please contact the health healthcare insurance sales agent that requested your imaging first. Electronically signed by: Kriss Alonzo MD, [facility] ([phone]), at 06/07/2024 2:[address] Chest wo Contrast (Generic) (Exam End: 06/03/2024 4:33 PM) Result Value WORKSTATION ID [id number] Impression Cardiomegaly. Biventricular ICD leads in place. Thank you for letting us participate in the care of this patient. If you are a health care provider and have any questions regarding this report, please contact the number below. For patients who have questions please contact the health healthcare insurance sales agent that requested your imaging first. Electronically signed by: Stuart Aponte MD, [facility] ([phone]), at 06/03/2024 4:47 PM XR Chest PA & Lateral (Generic) (Exam End: 06/07/2024 7:03 AM) Result Value WORKSTATION ID [id number] Impression Biventricular ICD leads intact and in [...] have questions please contact the health healthcare insurance sales agent that requested your imaging first. Electronically signed by: Stuart Aponte MD, [facility] ([phone]), at 06/07/2024 10:45 AM TTE: Limited echo performed by fellow control systems developer to assess LV function. Left ventricle is [...] Infusions: heparin (porcine) infusion 1,400 Units/hr (06/08/24 4352) PRN Meds:.insulin lispro, potassium chloride ER OR [...] ischemic cardiomyopathy with HFrEF (~30% EF), prior [place] with stents, DM type 2, HTN, HLD, [...] CODE Dain Colón MD Cardiology, M1-S2, Pager #[phone] 06/08/24 Associated attestation - Melida Valdes MD [...] a lytic and brought directly to the Certified Vehicle Fire Investigator. Cardiac catheterization demonstrated multivessel disease with severe [...] Otherwise clinically stable Melida Valdes MD Staff Math Interventionist * Ross Manuel PA - 06/07/2024 12:00 PM EST Cardiac Electrophysiology CIED Interrogation/Programming Note Asked by MRI staff to evaluate and program Medtronic GAS OPERATIONS ANALYST-D to allow for MR imaging. Patient Active Problem List Diagnosis ','STEMI (ST elevation myocardial infarction) Acute on chronic heart failure with reduced ejection fraction (HFrEF, <= 40%) Coronary artery disease involving [place] coronary artery of [place] heart without angina pectoris Type 2 diabetes mellitus Device Data: [employer] Amplia MRI Quad GAS OPERATIONS ANALYST-D TLVS3PI #[id number] 06/16/2019 RA Medtronic 4076 CapSureFix Novus [id number] 06/16/2019 RV Medtronic [id number] 06/16/2019 LV Medtronic 4298 Attain Performa MRI [id number] 06/16/2019 DDD @ 50/130/130 Adaptive Bi-V and LV VF >188bpm ATP, 35j x6 FVT >188-222bpm burst 2, 35jx5 VT Battery longevity: 2.5yrs; charge time 4s P wave: 2.3mV R wave: >20.0mV Atrial impedance: 458 ohms RV impedance: 646 ohms LV impedance: 722 ohms Atrial threshold: 0.5V @ 0.4ms RV threshold: LV threshold: 1.75V @ 0.4ms AP 0.2% BARREL ASSEMBLY INSPECTOR 97.7% AT/AF 0% Impression and Plan: 1. Interrogated device to determine suitability for MRI 2. Programmed to MRI safe mode - VOO @ 70 3. Scan performed 4. Programming restored to baseline settings 5. Reinterrogated to verify appropriate function and settings 6. Device follow up as previously scheduled Provider: HENOK Meyer EP Consult attending physician: Libby Barton MD EP Consult positional pager #[phone](EPMD) EP Device interrogation positional pager # [phone] * Dain Colón MD - 06/07/2024 7:09 AM EST Images from the original note were not included. . Cardiology Progress Note Patient info: Name: George Mehta : 1955 PCP: Mauro Berumen MD PCP phone number: [phone] Date of Admission: 06/02/2024 ( Hospital Day 5 days ) Attending:Melida Valdes MD ID: 69 y.o. male with a h/o DM type 2, HTN, HLD, current smoker (2-3 cigarettes/day), HFrEF with anICD for low EF (~30%), and CAD with prior [place] x3 with JENNA placed in [place], Melanoma, PAD, presented to [facility] with 1 hour of retrosternal CP (05/13) while watching TV, found to have STEMI. Active Problems: Active Hospital Problems Diagnosis STEMI (ST elevation myocardial infarction) Acute on chronic heart failure with reduced ejection fraction (HFrEF, <= 40%) Coronary artery disease involving [place] coronary artery of [place] heart without angina pectoris Type 2 diabetes [...] in the last 7068 hours. Invalid input(s): [id number] Recent Labs 06/07/24 0425 06/07/24 0008 06/06/24 2018 06/06/24 1539 06/06/24 1339 06/06/24 1134 06/06/24 0757 06/06/24 0653 06/05/24 2231 06/05/24 1622 06/05/24 1134 06/05/24 0727 POCGLU 127 182 143 147 317* 264* 195 187 238* 205* 211* 166 Heme No results for input(s): LDH, HAPTOGLOBIN, URICACID in the last 168 hours. ABG (Arterial Blood Gas) No results found for: PHART, PO2ART, ELZ3BVG, LGJ1KOW Microbiology: Microbiology Results (Last 30 days) No results found for the last 720 hours. Imaging: Results for orders placed or performed during the hospital encounter of 06/02/24 XR Chest One View (Exam End: 06/03/2024 2:41 AM) Result Value WORKSTATION ID [id number] Impression No radiographically evident acute cardiopulmonary process. Thank you for letting us participate in the care of this patient. If you are a health care provider and have any questions regarding this report, please contact the number below. For patients who have questions please contact the health healthcare insurance sales agent that requested your imaging first. Electronically signed by: Corazon Mauro MD, [facility] ([phone]), at 06/03/2024 3:[address] Chest wo Contrast (Generic) (Exam End: 06/03/2024 4:33 PM) Result Value WORKSTATION ID [id number] Impression Cardiomegaly. Biventricular ICD leads in place. Thank you for letting us participate in the care of this patient. If you are a health care provider and have any questions regarding this report, please contact the number below. For patients who have questions please contact the health healthcare insurance sales agent that requested your imaging first. Electronically signed by: Stuart Aponte MD, [facility] ([phone]), at 06/03/2024 4:47 PM TTE: Limited echo performed by fellow control systems developer to assess LV function. Left ventricle is [...] ischemic cardiomyopathy with HFrEF (~30% EF), prior IL with stents, DM type 2, HTN, HLD, [...] Dain Colón MD (PGY-1) Cardiology, M1-S2, Pager #[phone] 06/07/24 Associated attestation - Melida Valdes MD [...] a lytic and brought directly to the Certified Vehicle Fire Investigator. Cardiac catheterization demonstrated multivessel disease with severe [...] for further guidance. Melida Valdes MD Staff Math Interventionist * Dain Colón MD - 06/06/2024 7:17 AM EST Images from the original note were not included. . Cardiology Progress Note Patient info: Name: George Mehta : 1955 PCP: Mauro Berumen MD PCP phone number: [phone] Date of Admission: 06/02/2024 ( Hospital Day 4 days ) Attending:Melida Valdes MD ID: 69 y.o. male with a h/o DM type 2, HTN, HLD, current smoker (2-3 cigarettes/day), HFrEF with anICD for low EF (~30%), and CAD with prior IL x3 with JENNA placed in [place], Melanoma, PAD, presented to [facility] with 1 hour of retrosternal CP (05/13) while watching TV, found to have STEMI. Active Problems: Active Hospital Problems Diagnosis STEMI (ST elevation myocardial infarction) Acute on chronic heart failure with reduced ejection fraction (HFrEF, <= 40%) Coronary artery disease involving [place] coronary artery of [place] heart without angina pectoris Type 2 diabetes [...] in the last 68 hours. Invalid input(s): [id number] Recent Labs 06/06/24 0653 06/05/24 2231 06/05/24 1622 06/05/24 1134 06/05/24 0727 06/04/24 1943 06/04/24 1526 06/04/24 1109 06/04/24 0711 06/03/24 2005 06/03/24 1748 06/03/24 1114 POCGLU 187 238* 205* 211* 166 175 154 188 182 136 191 166 Heme No results for input(s): LDH, HAPTOGLOBIN, URICACID in the last 168 hours. ABG (Arterial Blood Gas) No results found for: PHART, PO2ART, TKF3SBC, PRU9BIT Microbiology: Microbiology Results (Last 30 days) No results found for the last 720 hours. Imaging: Results for orders placed or performed during the hospital encounter of 06/02/24 XR Chest One View (Exam End: 06/03/2024 2:41 AM) Result Value WORKSTATION ID [id number] Impression No radiographically evident acute cardiopulmonary process. Thank you for letting us participate in the care of this patient. If you are a health care provider and have any questions regarding this report, please contact the number below. For patients who have questions please contact the health healthcare insurance sales agent that requested your imaging first. Electronically signed by: Corazon Mauro MD, [facility] ([phone]), at 06/03/2024 3:[address] Chest wo Contrast (Generic) (Exam End: 06/03/2024 4:33 PM) Result Value WORKSTATION ID [id number] Impression Cardiomegaly. Biventricular ICD leads in place. Thank you for letting us participate in the care of this patient. If you are a health care provider and have any questions regarding this report, please contact the number below. For patients who have questions please contact the health healthcare insurance sales agent that requested your imaging first. Electronically signed by: Stuart Aponte MD, [facility] ([phone]), at 06/03/2024 4:47 PM TTE: Limited echo performed by fellow control systems developer to assess LV function. Left ventricle is [...] ischemic cardiomyopathy with HFrEF (~30% EF), prior IL with stents, DM type 2, HTN, HLD, [...] Dain Colón MD (PGY-1) Cardiology, M1-S2, Pager #[phone] 06/06/24 Associated attestation - Melida Valdes MD [...] a lytic and brought directly to the Certified Vehicle Fire Investigator. Cardiac catheterization demonstrated multivessel disease with severe [...] management. Help appreciated Melida Valdes MD Staff Math Interventionist * Frederick Dunn MD - 06/05/2024 8:13 AM EDT Images from the original note were not included. . Cardiology Progress Note Patient info: Name: George Mehta : 1955 PCP: Mauro Berumen MD PCP phone number: [phone] Date of Admission: 06/02/2024 ( Hospital Day 3 days ) Attending:Melida Valdes MD ID: 69 y.o. male with a h/o DM type 2, HTN, HLD, current smoker (2-3 cigarettes/day), HFrEF with anICD for low EF (~30%), and CAD with prior [place] x3 with JENNA placed in [place], Melanoma, PAD, presented to [facility] with 1 hour of retrosternal [...] in the last 7068 hours. Invalid input(s): IKEMEKAHDGF6G Recent Labs 06/05/24 1134 06/05/24 0727 06/04/24 1943 06/04/24 1526 06/04/24 1109 06/04/24 0711 06/03/24 2005 06/03/24 1748 06/03/24 1114 06/03/24 0754 06/02/24 2331 POCGLU 211* 166 175 154 188 182 136 191 166 195 156 Heme No results for input(s): LDH, HAPTOGLOBIN, URICACID in the last 168 hours. ABG (Arterial Blood Gas) No results found for: PHART, PO2ART, RFE8XJA, WNL4ODJ Microbiology: Microbiology Results (Last 30 days) No results found for the last 720 hours. Imaging: Results for orders placed or performed during the hospital encounter of 06/02/24 XR Chest One View (Exam End: 06/03/2024 2:41 AM) Result Value WORKSTATION ID [id number] Impression No radiographically evident acute cardiopulmonary process. Thank you for letting us participate in the care of this patient. If you are a health care provider and have any questions regarding this report, please contact the number below. For patients who have questions please contact the health healthcare insurance sales agent that requested your imaging first. Electronically signed by: Corazon Mauro MD, [facility] ([phone]), at 06/03/2024 3:[address] Chest wo Contrast (Generic) (Exam End: 06/03/2024 4:33 PM) Result Value WORKSTATION ID [id number] Impression Cardiomegaly. Biventricular ICD leads in place. Thank you for letting us participate in the care of this patient. If you are a health care provider and have any questions regarding this report, please contact the number below. For patients who have questions please contact the health healthcare insurance sales agent that requested your imaging first. Electronically signed by: Stuart Aponte MD, [facility] ([phone]), at 06/03/2024 4:47 PM TTE: Limited echo performed by fellow control systems developer to assess LV function. Left ventricle is [...] ischemic cardiomyopathy with HFrEF (~30% EF), prior IL with stents, DM type 2, HTN, HLD, [...] all the information they need regarding the GAS OPERATIONS ANALYST-D.Plan for MRI tomorrow. Starting 40 mg IV [...] a lytic and brought directly to the Certified Vehicle Fire Investigator. Cardiac catheterization demonstrated multivessel disease with severe [...] maintenance of 40. Melida Valdes MD Staff Math Interventionist * Miegl Javier RN - 06/05/2024 6:21 AM EDT Implanted device record scanned into: Chart Review-->Media-->External Cardiology-->03/25/2024. Medtronic Mabayaia MRI Quad CRTD [id number] Serial #: [id number] DDD mode A + Bi/V Rates 50-130 Migel Javier RN * Dain Colón MD - 06/04/2024 11:16 AM EDT Implant Records Requested Type: GAS OPERATIONS ANALYST-D Applied Research Director: [employer] Product: [id number] Amplia MRI MRI compatibility: Compatible for 1.5-3 T Model #: [id number] Placed at: [place], [place] Records requested for MRI: 1. Operative report 2. Implant log I requested that these records be sent to our MRI department, Dain Colón MD 06/04/24 11:58 AM * Dain Colón MD - 06/04/2024 6:57 AM EDT Images from the original note were not included. . Cardiology Progress Note Patient info: Name: George Mehta : 1955 PCP: Mauro Berumen MD PCP phone number: [phone] Date of Admission: 06/02/2024 ( Hospital Day 2 days ) Attending:Delroy Fofana MD ID: 69 y.o. male with a h/o DM type 2, HTN, HLD, current smoker (2-3 cigarettes/day), HFrEF with anICD for low EF (~30%), and CAD with prior IL x3 with JENNA placed in [place], Melanoma, PAD, presented to [facility] with 1 hour of retrosternal [...] in the last 7068 hours. Invalid input(s): NWTSOCGWLMR8N Recent Labs 06/03/24200406/03/24 1748 06/03/24 1114 06/03/24 0754 06/02/24 2331 POCGLU 136 191 166 195 156 Heme No results for input(s): LDH, HAPTOGLOBIN, URICACID in the last 168 hours. ABG (Arterial Blood Gas) No results found for: PHART, PO2ART, OFB9AUP, NAU6BNV Microbiology: Microbiology Results (Last 30 days) No results found for the last 720 hours. Imaging: Results for orders placed or performed during the hospital encounter of 06/02/24 XR Chest One View (Exam End: 06/03/2024 2:41 AM) Result Value WORKSTATION ID [id number] Impression No radiographically evident acute cardiopulmonary process. Thank you for letting us participate in the care of this patient. If you are a health care provider and have any questions regarding this report, please contact the number below. For patients who have questions please contact the health healthcare insurance sales agent that requested your imaging first. Electronically signed by: Corazon Mauro MD, [facility] ([phone]), at 06/03/2024 3:[address] Chest wo Contrast (Generic) (Exam End: 06/03/2024 4:33 PM) Result Value WORKSTATION ID [id number] Impression Cardiomegaly. Biventricular ICD leads in place. Thank you for letting us participate in the care of this patient. If you are a health care provider and have any questions regarding this report, please contact the number below. For patients who have questions please contact the health healthcare insurance sales agent that requested your imaging first. Electronically signed by: Stuart Aponte MD, [facility] ([phone]), at 06/03/2024 4:47 PM TTE: Limited echo performed by fellow control systems developer to assess LV function. Left ventricle is [...] ischemic cardiomyopathy with HFrEF (~30% EF), prior IL with stents, DM type 2, HTN, HLD, [...] -Lasix 40 mg IV given in the quality assurance/r&d lab technician; assess diuretic response, consider re-dosing -Continue [...] a lytic and brought directly to the Certified Vehicle Fire Investigator. Cardiac catheterization demonstrated multivessel disease with severe [...] Friday -Diuresis with Jovanni Valdes MD Staff Math Interventionist * Fatmata Mcallister PT - 06/03/2024 3:29 [...] vs PCI) Fatmata Mcallister PT, MSPT Pager [phone] Inpatient Physical Therapy * Marlin Gómez MD [...] Marlin Gómez MD Cardiology S2, Pager # [phone] 06/03/2024 * Delroy Fofana MD - 06/03/2024 7:16 AM EDT Images from the original note were not included. . Cardiology Progress Note Patient info: Name: George Mehta : 1955 PCP: Mauro Berumen MD PCP phone number: [phone] Date of Admission: 06/02/2024 ( Hospital Day 1 day ) Attending:Nuha Rojo MD ID: 69 y.o. male with a h/o DM type 2, HTN, HLD, current smoker (2-3 cigarettes/day), HFrEF with anICD for low EF (~30%), and CAD with prior IL x3 with JENNA placed in [place], Melanoma, PAD, presented to [facility] with 1 hour of retrosternal [...] in the last 7068 hours. Invalid input(s): HZLVNXRGLWE0S Recent Labs 06/02/24 2331 POCGLU 156 Heme No results for input(s): LDH, HAPTOGLOBIN, URICACID in the last 168 hours. ABG (Arterial Blood Gas) No results found for: PHART, PO2ART, ZCY1DOI, ESR2YVX Microbiology: Microbiology Results (Last 30 days) No results found for the last 720 hours. Imaging: Results for orders placed or performed during the hospital encounter of 06/02/24 XR Chest One View (Exam End: 06/03/2024 2:41 AM) Result Value WORKSTATION ID [id number] Impression No radiographically evident acute cardiopulmonary process. Thank you for letting us participate in the care of this patient. If you are a health care provider and have any questions regarding this report, please contact the number below. For patients who have questions please contact the health healthcare insurance sales agent that requested your imaging first. Electronically signed by: Corazon Mauro MD, [facility] ([phone]), at 06/03/2024 3:06 AM TTE: Limited echo performed by fellow control systems developer to assess LV function. Left ventricle is [...] ischemic cardiomyopathy with HFrEF (~30% EF), prior IL with stents, DM type 2, HTN, HLD, [...] -Lasix 40 mg IV given in the quality assurance/r&d lab technician; assess diuretic response, consider re-dosing -Continue [...] findings and plan of care per Dain Coóln MD (medical office receptionist assistant). Please refer to his note above for details. Very pleasant 69 year old male but he is obese, diabetic, and he is a SMOKER with known prior CAD and moderately reduced LVEF (30%). He has a pacer. History of surgical resection of melanoma on his head. The patient was transferred overnight to [facility] [place] [place] as a STEMI. He was treated initially with a lytic (TNK) and brought directly to the quality assurance/r&d lab technician. The cath demonstrated 3VD with diffuse [...] - 06/13/2024 10:58 AM EST ICU Blue (#[id number]) H&P Patient info: Name: George Mehta : 1955 PCP: Mauro Berumen MD PCP phone number: [phone] Date of Admission: 06/02/2024 ( Hospital Day 11 days ) Attending:Haja Byrnes MD ID: George Mehta is a 69 y.o. male with a h/o DM type 2, HTN, HLD, current smoker (2-3 cigarettes/day), HFrEF with an ICD for low EF (~30%), and CAD with prior IL x3 with JENNA placed in [place], Melanoma, PAD, presented to [facility] with 1 hour of retrosternal CP (05/13) while watching TV, foundto have STEMI. HPI: Shahnaz Scanlon H&P 06/02 69 y.o. male with a h/o DM type 2, HTN, HLD, current smoker (2-3 cigarettes/day), HFrEF with an ICD for low EF (~30%), and CAD with prior IL x3 with JENNA placed in [place], Melanoma, PAD, presented to [facility] with 1 hour of retrosternal CP (05/13) while watching TV. CP was non-radiating, not asso ciated with diaphoresis, nausea, or SOB. Denies orthopnea, MARTÍNEZ, palpitations, or LE edema. ECG showed findings consistent with anterior STEMI. He received TNK and was transferred for PCI. Coronary angiography showed a small, non-dominant RCA with dzoj-cz-fiuqtojy disease and a dominant,heavily calcified left system with prior stents in the LAD and OM. The LM bifurcates into the LAD and LCX, both heavily calcified. The proximal LCX has a 75% calcified, aneurysmal lesion, and an 80% calcified lesion distally before a large OM2. OM1 is a REBEAMER with in-stent restenosis, filling retrograde via collaterals. [...] 40 mg Lasix was administered in the quality assurance/r&d lab technician. Cardiac surgery was consulted and plan [...] Blood Gas) No results for input(s): PHART, RRZ9BYS, PO2ART, CUG2CIB, LACTATEVEN, FPL5XLO, PFRATIOART2 in the last 168 hours. VBG (Venous Blood Gas) Recent Labs 06/10/24 1742 PHVEN 7.34 PO2VEN 24 IEF3LTY 27.4 Mixed Venous Sat No results for input(s): W1SYHI3 in the last 168 hours. Intake/Output Summary [...] in the last 7068 hours. Invalid input(s): GEPGWQTZEXG0A Recent Labs 06/13/24 0741 06/13/24 0325 06/12/24 2353 06/12/24 1932 06/12/24 1541 06/12/24 1121 06/12/24 0800 06/12/24 0425 06/11/24 2356 06/11/24 2025 06/11/24 1624 06/11/24 1108 POCGLU 126 99 141 158 113 207* 169 132 135 210* 81 233* Heme No results for input(s): LDH, HAPTOGLOBIN, URICACID in the last 168 hours. ABG (Arterial Blood Gas) No results for input(s): PHART, BBC8CRE, PO2ART, GVX3KKK, LACTATEVEN, WGL6ZMT, PFRATIOART2 in the last 168 hours. VBG (Venous Blood Gas) Recent Labs 06/10/24 1742 PHVEN 7.34 PO2VEN 24 VIH7ALO 27.4 Mixed Venous Sat No results for input(s): T6TLRD5 in the last 168 hours. Microbiology: Microbiology Results (Last 30 days) No results found for the last 720 hours. Assessment & Plan: George Mehta is a 69 y.o. male with CAD, ischemic cardiomyopathy with HFrEF (~30% EF), prior IL with stents, DM type 2, HTN, HLD, [...] Plan for CABG 06/14. Patient NPO at [place]. #ASCVD / STEMI: -Holding Plavix; continue ASA [...] (Give Meds) Daily Healthy Menu Choices/Cardiac diet ([facility] [place]-Diet) DVT Prophylaxis: SCD GI Prophylaxis: None [...] TUD (abstinent since admission), ASCVD with multipleprior IL and PCIs, ICM/HFrEF LVEF 30% (all territories [...] is in the chart Rebeca Prado MD Micropaleontologist PGY6 [id number] * Shahnaz Scanlon MD - [...] low EF (~30%), and CAD with prior [place] x3 with JENNA placed in [facility], presented to [facility] with 1 hour of retrosternal CP (05/13) while watching TV. CP was non-radiating, not assoc iated with diaphoresis, nausea, or SOB. Denies orthopnea, MARTÍNEZ, palpitations, or LE edema. ECG showed findings consistent with anterior STEMI. He received TNK and was transferred for PCI. Coronary angiography showed a small, non-dominant RCA with kgey-ac-qanjkysp disease and a dominant,heavily calcified left system with prior stents in the LAD and OM. The LM bifurcates into the LAD and LCX, both heavily calcified. The proximal LCX has a 75% calcified, aneurysmal lesion, and an 80% calcified lesion distally before a large OM2. OM1 is a REBEAMER with in-stent restenosis, filling retrograde via collaterals. [...] 40 mg Lasix was administered in the quality assurance/r&d lab technician. Past Medical History: As per HPI [...] normal. Behavior: Behavior normal. Diagnostics: [facility] 06/02/2024 Coronary angiography revealed small [...] ischemic cardiomyopathy with HFrEF (~30% EF), prior IL with stents, DM type 2, HTN, HLD, [...] -Lasix 40 mg IV given in the quality assurance/r&d lab technician; assess diuretic response. -Continue carvedilol; hold [...] Care: Contact information for follow-up [facility] [address] [facility] [address] Cardiac Rehab, [address] [address] JAMIE GRAMAJO confirmed with [facility] that they [...] Roberts RN - 06/18/2024 10:50 AM EST [facility] [place] [place] CARDIAC REHABILITATION George Mehta was seen today regarding participation in the outpatient Phase 2 Cardiac Rehabilitation at [facility]. The patient agrees to a referral to this program. The referral will be sent at discharge and the patient should be contacted by the program within 1-2 weeks from discharge. * Plan of Care - Wanad Jaquez RN - 06/18/2024 6:15 AM EST [...] Agency/Support Group Needs: Homecare agency Agency Choices: [facility] Home Health Services: Medication checks, Registered Nurse, Physical Therapy Agency Referrals: pending clinical course and PT/OT recs [facility] [address] [facility] [address] PHONE: [phone] FAX: [phone] Transportation: family or friend will provide Barriers [...] MEDICARE Payor: [employer] MANAGED MEDICARE / Plan: [facility] MANAGED MEDICARE COMPLETE / Product Type: *No Product type* / Secondary Insurance: N/A Plan for discharge is: Home w/ Services Outpatient Agency/Support Group Needs: Homecare agency Agency Choices: [facility]: Medication checks, Registered Nurse, Physical Therapy Agency Referrals: pending clinical course and PT/OT recs [facility] [address] [place] [address] PHONE: [phone] FAX: [phone] Transportation: family or friend will provide Barriers [...] Loja MD - 06/14/2024 8:48 AM EST [facility] [place] [place] Operative Note Patient Name: George Mehta : [id number] MR#: [id number] Case Date: 06/14/2024 Surgeon: Surgeons and Role: * Bobby Loja MD - Primary * Rashi Bass PA - Physician Reference Data Expert Preoperative diagnosis: CAD, MARIALUISA flickering mass on [...] procedures today and tomorrow. Report called to [facility] - all belongings with patient. PLAN MOVING FORWARD: lab technologist and transfer to [facility]. INDIVIDUALIZED FALL PREVENTION [...] Patient is insured through: Primary Insurance: [facility] MANAGED MEDICARE Payor: [facility] MANAGED MEDICARE / Plan: [facility] MANAGED MEDICARE COMPLETE / Product Type: *No Product type* / Secondary Insurance: N/A Plan for discharge is: Home w/ Services Outpatient Agency/Support Group Needs: Homecare agency, Agency Choices: [facility] Home Health Services: Medication checks, Registered Nurse, Physical Therapy Agency Referrals: [facility] [address] [place] [address] RN / PT Routed 06/10 Transportation: family [...] with home health services when medically ready. biomedical engineering aide/Executive Chef will continue to follow patient???s progress and remain available if situation changes for coordination of care, psychosocial support and/or discharge planning. Anticipated Date of Discharge: 06/18/2024 Mariia Montero RN Extension [phone] * Plan of Care - Migel Javier [...] No Patient is insured through: Primary Insurance: [employer] MEDICARE Payor: [employer] MANAGED MEDICARE / Plan: [facility] MANAGED MEDICARE COMPLETE / Product Type: [...] consult for high risk PCI vs CABG biomedical engineering aide/Executive Chef will continue to follow patient???s progress and remain available if situation changes for coordination of care, psychosocial support and/or discharge planning. 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 Diabetes History: George Mehta has [...] Breakfast- varies - eggs with khoury or mongolian muffin Lunch- turkey sandwich Supper- meat and [...] ischemic cardiomyopathy with HFrEF (~30% EF), prior IL with stents, DM type 2, HTN, HLD, [...] Baumann APRN Endocrinology Diabetes Management Service Pager: [phone] Weekends please page [phone] 80 minute visit was spent in counseling [...] Goal: Absence of Bleeding 06/05/2024631 by Migel Jvaier RN Outcome: Ongoing (Interventions Implemented as Appropriate) [...] y.o. male with a PMHx of previous IL s/p PCI x3, ICM/HFrEF (LVEF 30%) s/p ICD, DMII, HTN, HLD, remote melanoma, and smoker who presented to [facility] last night via EMS after developing acute, severe chest pain while watching TV. Patient was ruled in for STEMI, given TNK, ASA, plavix, heparin gtt, and sent to [facility] [place] [place] for coronary angiography. LHC demonstrated severely calcified left coronary system with notable LCx 75/80% lesions and REBEAMER OM1 with ISR with collateral retrograde filling, [...] elevation myocardial infarction) Past Medical History: previous [place] s/p PCI x3 ICM/HFrEF (LVEF 30%) s/p [...] is large. OM1 appears to be a REBEAMER, with in stentrestenosis and fills retrograde via [...] admitted with STEMI s/p TNK, [facility] showing multivessel CAD including ISR, [...] to our service. Signed: Paula Treviño PA-C [facility] Section of Cardiac Surgery Date: 06/03/2024 * Initial Assessments - Catina Estrada MSW - 06/03/2024 10:32 AM EDT Office of Care Management Initial Assessment CHINA Humphrey reviewed record and discussed patient with Care Team. Source of Information: Team, bedside nurse, medical record, and Patient CLINICAL EDUCATION ACADEMIC COORDINATOR Introduced self/reviewed role; services accepted. Admitted From: Transfer from another hospital Location: [facility] Reason for Hospitalization: Chest Pain while watching TV, doctors said I had a heart attack Past medical History: No past medical history on file. Hospitalizations Within the Past 30 Days: no previous admission in last 30 days Current Decision-Making Capacity: Self If AD's have not been completed the following surrogate would be surrogate decision maker per [place] surrogate decision making law. (Only good for 180 days) Any patient receiving care in [place] must abide by ID law. The hierarchy for surrogate decision making [...] homeless or living in a fci (including now)?: No In the past 12 months has the electric, gas, oil, or water [employer] threatened to shut off services in your [...] the bathroom) Home Address confirmed as: [address] [place] [address] [facility] [address] Social & Family Supports: All names listed [...] Pertinent/Service Specific Information: Health/Prescription Coverage: Primary Insurance: [facility] MEDICARE Payor: [facility] MEDICARE / Plan: AARP RPPO MANAGED MEDICARE COMPLETE / Product Type: *No Product type* / Secondary Insurance: N/A ; Prescription Coverage: Yes Preferred Pharmacy: [id number] - [facility], [place] - [address] [facility] [address] [place] [address] [place] Status: Patient is a : No Primary Care Provider confirmed: Mauro Berumen MD [phone] Patient/Caregiver Goals of Treatment: Potential Needs for [...] care as indicated. [facility], ext. [phone] * Brief Op Note - Angeles Gaxiola PA - 06/03/2024 12:23 AM EDT Preliminary Cardiac Catheterization Procedure Note: Patient Name: George Mehta : [id number] MR#: [id number] Case Date: 06/02/2024 - 06/03/2024 Plastic Injection Mold Maker: Surgeons and Role: * Nuha Shen MD - Primary * Angeles Gaxiola PA - Physician Reference Data Expert Preoperative diagnosis: STEMI Postoperative diagnosis: * STEMI * Procedure(s) performed: RRA access [facility] Coronary angiogram IVUS LM/LAD/LCX Access: 6 Fr RRA A time-out was conducted prior to the start of the procedure to verify the correct patient and procedure, procedure location, and all relevant critical information. Preliminary findings: 69 year old current smoker (1-2 cigarette's per day), DM type 2, hypertension, dyslipidemia, ICD for HFrEF/low EF (~30%), CAD with prior [place] and 3 stents historically (in [place]) who presented to [facility] with 1 hour of rest [...] is large. 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) 06/14/2024 7:34 AM EST CAD Endoscopy W/Video-Asst Vein [place], Cabg ([id number]) 06/14/2024 7:34 AM EST CAD Cabg, Artery-Vein, Two ([id number]) 06/14/2024 7:34 AM EST CAD Cabg, Arterial, Single ([id number]) 06/14/2024 7:34 AM EST CAD TRANSESOPHAGEAL ECHOCARDIOGRAM IN THE OR Routine 06/14/2024 7:20 AM EST Coronary artery disease involving [place] coronary artery of [place] heart without angina pectoris POC, GLUCOSE Routine [...] * POC, GLUCOSE (06/21/2024 3:51 AM EST) [facility] Glucometer, POC 142 65 - 199 mg/dL 06/21/2024 3:51 AM [facility] Comment:Supplemental ranges: <140 mg/dL before meals <180 mg/dL all other times of the day. Blood CAPILLARY BLOOD / Unknown 06/21/2024 3:51 AM EST 06/21/2024 3:51 AM EST Bobby Loja MD POINT OF CARE TEST O RDERABLES [facility] [place] [address] * (ABNORMAL) Basic Metabolic Panel (06/21/2024 2:09 AM EST) Glucose 169 65 - 199 mg/dL 06/21/2024 3:10 AM [facility] Comment:Glucose Concentratio n >=200 mg/dL plus symptoms is consistent with Diabetes Mellitus. Blood Urea Nitrogen 27(H) 10 - 20 mg/dL 06/21/2024 3:10 AM [facility] Creatinine 1.24 0.80 - 1.50 mg/dL 06/21/2024 3:10 AM [facility] Sodium 138 135 - 145 mMol/L 06/21/2024 3:10 AM [facility] Potassium 4.2 3.5 - 5.0 mMol/L 06/21/2024 3:10 AM [facility] Chloride 100 98 - 107 mMol/L 06/21/2024 3:10 AM [facility] Carbon Dioxide 27 22 - 31 mMol/L 06/21/2024 3:10 AM [facility] Anion Gap 11 5 - 15 mMol/L 06/21/2024 3:10 AM [facility] Calcium 8.7 8.5 - 10.5 mg/dL 06/21/2024 3:10 AM [facility] Est Glomerular Filtration Rate - Male 64 mL/min/1. 73 m?? 06/21/2024 3:10 AM [facility] [...] APRN CHEMISTRY ORDERABL ES Performing Organization Address [facility] Co de Phone Number [facility] [place] [address] * POC, GLUCOSE (06/21/2024 12:04 AM EST) Glucometer, POC 157 65 - 199 mg/dL 06/21/2024 12:[address] [facility] Comment:Supplemental ranges: <140 mg/dL before meals <180 mg/dL all other times of the day. Blood CAPILLARY BLOOD / Unknown 06/21/2024 12:04 AM EST 06/21/2024 12:04 AM EST Bobby Loja MD POINT OF CARE TEST O RDERABLES Performing Organization Address City/[facility]/ZIP Co de Phone Number [facility] [place] [address] * POC, GLUCOSE (06/20/2024 11:14 PM EST) Glucometer, POC 67 65 - 199 mg/dL 06/20/2024 11:[address] [facility] Comment:Supplemental ranges: <140 mg/dL before meals <180 mg/dL all other times of the day. Blood CAPILLARY BLOOD / Unknown 06/20/2024 11:14 PM EST 06/20/2024 11:14 PM EST Bobby Loja MD POINT OF CARE TEST O RDERABLES Performing Organization Address [facility] Co de Phone Number [facility] [place] [address] * POC, GLUCOSE (06/20/2024 7:16 PM EST) Glucometer, POC 132 65 - 199 mg/dL 06/20/2024 7:[address] [facility] Comment:Supplemental ranges: <140 mg/dL before meals <180 mg/dL all other times of the day. Blood CAPILLARY BLOOD / Unknown 06/20/2024 7:16 PM EST 06/20/2024 7:16 PM EST Bobby Loja MD POINT OF CARE TEST O NIKA Performing Organization Address [facility] Co de Phone Number [facility] [place] [address] * POC, GLUCOSE (06/20/2024 3:39 PM EST) Glucometer, POC 124 65 - 199 mg/dL 06/20/2024 3:[address] [facility] Comment:Supplemental ranges: <140 mg/dL before meals <180 mg/dL all other times of the day. Blood CAPILLARY BLOOD / Unknown 06/20/2024 3:39 PM EST 06/20/2024 3:40 PM EST Bobby Loja MD POINT OF CARE TEST O RDERAPIETER Performing Organization Address City/[facility]/ZIP Co de Phone Number [facility] [place] [address] * POC, GLUCOSE (06/20/2024 12:02 PM EST) Glucometer, POC 173 65 - 199 mg/dL 06/20/2024 12:[address] [facility] Comment:Supplemental ranges: <140 mg/dL before meals <180 mg/dL all other times of the day. Blood CAPILLARY BLOOD / Unknown 06/20/2024 12:02 PM EST 06/20/2024 12:03 PM EST Bobby Loja MD POINT OF CARE TEST O NIKA Performing Organization Address [facility] Co de Phone Number [facility] [place] [address] * POC, GLUCOSE (06/20/2024 7:10 AM EST) Glucometer, POC 130 65 - 199 mg/dL 06/20/2024 7:[address] [facility] Comment:Supplemental ranges: <140 mg/dL before meals <180 mg/dL all other times of the day. Blood CAPILLARY BLOOD / Unknown 06/20/2024 7:10 AM EST 06/20/2024 7:11 AM EST Narrative Authorizing Provider Result Saranya Loja MD POINT OF CARE TEST Abimael MAHER Performing Organization Address [facility] Co de Phone Number [facility] [place] [address] * (ABNORMAL) Basic Metabolic Panel (06/20/2024 2:28 AM EST) Glucose 79 65 - 199 mg/dL 06/20/2024 3:06 AM [facility] Comment:Glucose Concentratio n >=200 mg/dL plus symptoms is consistent with Diabetes Mellitus. Blood Urea Nitrogen 38(H) 10 - 20 mg/dL 06/20/2024 3:06 AM [facility] Creatinine 1.39 0.80 - 1.50 mg/dL 06/20/2024 3:06 AM [facility] Sodium 137 135 - 145 mMol/L 06/20/2024 3:06 AM [facility] Potassium 3.6 3.5 - 5.0 mMol/L 06/20/2024 3:06 AM [facility] Chloride 100 98 - 107 mMol/L 06/20/2024 3:06 AM [facility] Carbon Dioxide 29 22 - 31 mMol/L 06/20/2024 3:[address] [facility] Anion Gap 8 5 - 15 mMol/L 06/20/2024 3:06 AM [facility] Calcium 8.4(L) 8.5 - 10.5 mg/dL 06/20/2024 3:06 AM [facility] Est Glomerular Filtration Rate - Male 56 mL/min/1. 73 m?? 06/20/2024 3:06 AM [facility] [...] ORDERABL ES Performing Organization Address City/[facility]/ZIP Co de Phone Number [facility] [place] [address] * POC, GLUCOSE (06/20/2024 12:32 AM EST) Glucometer, POC 86 65 - 199 mg/dL 06/20/2024 12:[address] [facility] Comment:Supplemental ranges: <140 mg/dL before meals <180 mg/dL all other times of the day. Blood CAPILLARY BLOOD / Unknown 06/20/2024 12:32 AM EST 06/20/2024 12:32 AM EST Bobby Loja MD POINT OF CARE TEST O RDERABLES [facility] [place] [address] * (ABNORMAL) POC, GLUCOSE (06/20/2024 12:02 AM EST) Glucometer, POC 59(L) 65 - 199 mg/dL 06/20/2024 12:[address] [facility] Comment:Supplemental ranges: <140 mg/dL before meals <180 mg/dL all other times of the day. Blood CAPILLARY BLOOD / Unknown 06/20/2024 12:02 AM EST 06/20/2024 12:03 AM EST Bobby Loja MD POINT OF CARE TEST O NIKA Performing Organization Address [facility] Co de Phone Number [facility] [place] [address] * POC, GLUCOSE (06/19/2024 8:15 PM EST) Glucometer, POC 131 65 - 199 mg/dL 06/19/2024 8:[address] [facility] Comment:Supplemental ranges: <140 mg/dL before meals <180 mg/dL all other times of the day. Blood CAPILLARY BLOOD / Unknown 06/19/2024 8:15 PM EST 06/19/2024 8:15 PM EST Bobby Loja MD POINT OF CARE TEST O NIKA Performing Organization Address [facility] Co de Phone Number [facility] [place] [address] * POC, GLUCOSE (06/19/2024 6:01 PM EST) Glucometer, POC 129 65 - 199 mg/dL 06/19/2024 6:[address] [facility] Comment:Supplemental ranges: <140 mg/dL before meals <180 mg/dL all other times of the day. Blood CAPILLARY BLOOD / Unknown 06/19/2024 6:01 PM EST 06/19/2024 6:02 PM EST Bobby Loja MD POINT OF CARE TEST O RDERABLES Performing Organization Address [facility] Co de Phone Number [facility] [place] [address] * POC, GLUCOSE (06/19/2024 4:51 PM EST) Glucometer, POC 155 65 - 199 mg/dL 06/19/2024 4:[address] [facility] Comment:Supplemental ranges: <140 mg/dL before meals <180 mg/dL all other times of the day. Blood CAPILLARY BLOOD / Unknown 06/19/2024 4:51 PM EST 06/19/2024 4:51 PM EST Bobby Loja MD POINT OF CARE TEST O NIKA Performing Organization Address [facility] Co de Phone Number [facility] [place] [address] * POC, GLUCOSE (06/19/2024 12:37 PM EST) Glucometer, POC 136 65 - 199 mg/dL 06/19/2024 12:[address] [facility] Comment:Supplemental ranges: <140 mg/dL before meals <180 mg/dL all other times of the day. Blood CAPILLARY BLOOD / Unknown 06/19/2024 12:37 PM EST 06/19/2024 12:37 PM EST Bobby Loja MD POINT OF CARE TEST O RDERAPIETER Performing Organization Address City/[facility]/ZIP Co de Phone Number [facility] [place] [address] * POC, GLUCOSE (06/19/2024 11:20 AM EST) Glucometer, POC 185 65 - 199 mg/dL 06/19/2024 11:[address] [facility] Comment:Supplemental ranges: <140 mg/dL before meals <180 mg/dL all other times of the day. Blood CAPILLARY BLOOD / Unknown 06/19/2024 11:20 AM EST 06/19/2024 11:21 AM EST Bobby Loja MD POINT OF CARE TEST O NIKA Performing Organization Address [facility] Co de Phone Number [facility] [place] [address] * POC, GLUCOSE (06/19/2024 7:21 AM EST) Glucometer, POC 125 65 - 199 mg/dL 06/19/2024 7:[address] [facility] Comment:Supplemental ranges: <140 mg/dL before meals <180 mg/dL all other times of the day. Blood CAPILLARY BLOOD / Unknown 06/19/2024 7:21 AM EST 06/19/2024 7:22 AM EST Narrative Authorizing Provider Result Saranya Loja MD POINT OF CARE TEST O NIKA Performing Organization Address [facility] de Phone Number [facility] [place] [address] * POC, GLUCOSE (06/19/2024 4:52 AM EST) Glucometer, POC 125 65 - 199 mg/dL 06/19/2024 4:[address] [facility] Comment:Supplemental ranges: <140 mg/dL before meals <180 mg/dL all other times of the day. Blood CAPILLARY BLOOD / Unknown 06/19/2024 4:52 AM EST 06/19/2024 4:52 AM EST Narrative Authorizing Provider Result Saranya Loja MD POINT OF CARE TEST O NIKA Performing Organization Address [facility] Co de Phone Number [facility] [place] [address] * POC, GLUCOSE (06/19/2024 4:13 AM EST) Glucometer, POC 67 65 - 199 mg/dL 06/19/2024 4:[address] [facility] Comment:Supplemental ranges: <140 mg/dL before meals <180 mg/dL all other times of the day. Blood CAPILLARY BLOOD / Unknown 06/19/2024 4:13 AM EST 06/19/2024 4:13 AM EST Bobby Loja MD POINT OF CARE TEST O RDBECKIE [facility] [place] [address] * (ABNORMAL) POC, GLUCOSE (06/19/2024 3:48 AM EST) Glucometer, POC 51(LLL) 65 - 199 mg/dL 06/19/2024 3:[address] [facility] Comment:Supplemental ranges: <140 mg/dL before meals <180 mg/dL all other times of the day. Blood CAPILLARY BLOOD / Unknown 06/19/2024 3:48 AM EST 06/19/2024 3:48 AM EST Bobby Loja MD POINT OF CARE TEST O NIKA [facility] [place] [address] * (ABNORMAL) Basic Metabolic Panel (06/19/2024 3:44 AM EST) Glucose 53(LLL) 65 - 199 mg/dL 06/19/2024 4:[address] [facility] Comment:Glucose Concentratio n >=200 mg/dL plus symptoms is consistent with Diabetes Mellitus. Blood Urea Nitrogen 42(H) 10 - 20 mg/dL 06/19/2024 4:[address] [facility] Creatinine 1.29 0.80 - 1.50 mg/dL 06/19/2024 4:[address] [facility] Sodium 138 135 - 145 mMol/L 06/19/2024 4:[address] [facility] Potassium 3.6 3.5 - 5.0 mMol/L 06/19/2024 4:[address] [facility] Chloride 100 98 - 107 mMol/L 06/19/2024 4:48 AM [facility] Carbon Dioxide 29 22 - 31 mMol/L 06/19/2024 4:48 AM [facility] Anion Gap 9 5 - 15 mMol/L 06/19/2024 4:48 AM [facility] Calcium 8.8 8.5 - 10.5 mg/dL 06/19/2024 4:48 AM [facility] Est Glomerular Filtration Rate - Male 61 mL/min/1. 73 m?? 06/19/2024 4:48 AM [facility] [...] AM EST 06/19/2024 3:51 AM EST Keila Dayan CHOU CHEMISTRY ORDERABL ES [facility] [place] [address] * POC, GLUCOSE (06/19/2024 12:23 AM EST) Glucometer, POC 82 65 - 199 mg/dL 06/19/2024 12:[address] [facility] Comment:Supplemental ranges: <140 mg/dL before meals <180 mg/dL all other times of the day. Blood CAPILLARY BLOOD / Unknown 06/19/2024 12:23 AM EST 06/19/2024 12:23 AM EST Bobby Loja MD POINT OF CARE TEST O RDERABLES Performing Organization Address [facility] Co de Phone Number [facility] [place] [address] * POC, GLUCOSE (06/18/2024 11:08 PM EST) Glucometer, POC 73 65 - 199 mg/dL 06/18/2024 11:[address] [facility] Comment:Supplemental ranges: <140 mg/dL before meals <180 mg/dL all other times of the day. Blood CAPILLARY BLOOD / Unknown 06/18/2024 11:08 PM EST 06/18/2024 11:08 PM EST Bobby Loja MD POINT OF CARE TEST O NIKA Performing Organization Address [facility] Co de Phone Number [facility] [place] [address] * POC, GLUCOSE (06/18/2024 7:32 PM EST) Glucometer, POC 167 65 - 199 mg/dL 06/18/2024 7:[address] [facility] Comment:Supplemental ranges: <140 mg/dL before meals <180 mg/dL all other times of the day. Blood CAPILLARY BLOOD / Unknown 06/18/2024 7:32 PM EST 06/18/2024 7:32 PM EST Bobby Loja MD POINT OF CARE TEST O RDERAPIETER Performing Organization Address City/[facility] Co de Phone Number [facility] [place] [address] * POC, GLUCOSE (06/18/2024 6:08 PM EST) Glucometer, POC 140 65 - 199 mg/dL 06/18/2024 6:[address] [facility] Comment:Supplemental ranges: <140 mg/dL before meals <180 mg/dL all other times of the day. Blood CAPILLARY BLOOD / Unknown 06/18/2024 6:08 PM EST 06/18/2024 6:09 PM EST Bobby Loja MD POINT OF CARE TEST O NIKA Performing Organization Address [facility] Co de Phone Number [facility] [place] [address] * POC, GLUCOSE (06/18/2024 4:17 PM EST) Glucometer, POC 144 65 - 199 mg/dL 06/18/2024 4:[address] [facility] Comment:Supplemental ranges: <140 mg/dL before meals <180 mg/dL all other times of the day. Blood CAPILLARY BLOOD / Unknown 06/18/2024 4:17 PM EST 06/18/2024 4:17 PM EST Bobby Loja MD POINT OF CARE TEST O NIKA Performing Organization Address [facility] Co de Phone Number [facility] [place] [address] * POC, GLUCOSE (06/18/2024 12:09 PM EST) Glucometer, POC 180 65 - 199 mg/dL 06/18/2024 12:[address] [facility] Comment:Supplemental ranges: <140 mg/dL before meals <180 mg/dL all other times of the day. Blood CAPILLARY BLOOD / Unknown 06/18/2024 12:09 PM EST 06/18/2024 12:09 PM EST Narrative Authorizing Provider Result Saranya Loja MD POINT OF CARE TEST O NIKA Performing Organization Address [facility] Co de Phone Number [facility] [place] [address] * POC, GLUCOSE (06/18/2024 7:49 AM EST) Glucometer, POC 125 65 - 199 mg/dL 06/18/2024 7:[address] [facility] Comment:Supplemental ranges: <140 mg/dL before meals <180 mg/dL all other times of the day. Blood CAPILLARY BLOOD / Unknown 06/18/2024 7:49 AM EST 06/18/2024 7:50 AM EST Bobby Loja MD POINT OF CARE TEST O RDERABLES [facility] [place] [address] * (ABNORMAL) Basic Metabolic Panel (06/18/2024 4:19 AM EST) Glucose 103 65 - 199 mg/dL 06/18/2024 5:03 AM [facility] Comment:Glucose Concentratio n >=200 mg/dL plus symptoms is consistent with Diabetes Mellitus. Blood Urea Nitrogen 43(H) 10 - 20 mg/dL 06/18/2024 5:03 AM [facility] Creatinine 1.45 0.80 - 1.50 mg/dL 06/18/2024 5:03 AM [facility] Sodium 131(L) 135 - 145 mMol/L 06/18/2024 5:03 AM [facility] Potassium 4.2 3.5 - 5.0 mMol/L 06/18/2024 5:03 AM [facility] Chloride 97(L) 98 - 107 mMol/L 06/18/2024 5:03 AM [facility] Carbon Dioxide 25 22 - 31 mMol/L 06/18/2024 5:03 AM [facility] Anion Gap 9 5 - 15 mMol/L 06/18/2024 5:03 AM [facility] Calcium 8.5 8.5 - 10.5 mg/dL 06/18/2024 5:03 AM [facility] Est Glomerular Filtration Rate - Male 53 mL/min/1. 73 m?? 06/18/2024 5:03 AM [facility] [...] APRN CHEMISTRY ORDERABL ES Performing Organization Address [facility] Co de Phone Number [facility] [place] [address] * POC, GLUCOSE (06/18/2024 3:50 AM EST) Glucometer, POC 99 65 - 199 mg/dL 06/18/2024 3:[address] [facility] Comment:Supplemental ranges: <140 mg/dL before meals <180 mg/dL all other times of the day. Blood CAPILLARY BLOOD / Unknown 06/18/2024 3:50 AM EST 06/18/2024 3:51 AM EST Bobby Loja MD POINT OF CARE TEST O RDERABLES Performing Organization Address [facility] Co de Phone Number [facility] [place] [address] * POC, GLUCOSE (06/17/2024 11:10 PM EST) Glucometer, POC 92 65 - 199 mg/dL 06/17/2024 11:[address] [facility] Comment:Supplemental ranges: <140 mg/dL before meals <180 mg/dL all other times of the day. Blood CAPILLARY BLOOD / Unknown 06/17/2024 11:10 PM EST 06/17/2024 11:10 PM EST Bobby Loja MD POINT OF CARE TEST O RDERABLES Performing Organization Address [facility] Co de Phone Number [facility] [place] [address] * POC, GLUCOSE (06/17/2024 7:54 PM EST) Glucometer, POC 126 65 - 199 mg/dL 06/17/2024 7:[address] [facility] Comment:Supplemental ranges: <140 mg/dL before meals <180 mg/dL all other times of the day. Blood CAPILLARY BLOOD / Unknown 06/17/2024 7:54 PM EST 06/17/2024 7:54 PM EST Bobby Loja MD POINT OF CARE TEST O NIKA Performing Organization Address [facility] de Phone Number [facility] [place] [address] * POC, GLUCOSE (06/17/2024 4:07 PM EST) Glucometer, POC 141 65 - 199 mg/dL 06/17/2024 4:[address] [facility] Comment:Supplemental ranges: <140 mg/dL before meals <180 mg/dL all other times of the day. Blood CAPILLARY BLOOD / Unknown 06/17/2024 4:07 PM EST 06/17/2024 4:12 PM EST Bobby Loja MD POINT OF CARE TEST O NIKA Performing Organization Address [facility] Co de Phone Number [facility] [place] [address] * XR Chest PA & Lateral (Generic) (06/17/2024 1:46 PM EST) WORKSTATION ID [id number] RAD Anatomical Region Laterality Modality Chest N/A [...] have questions please contact the health healthcare insurance sales agent that requested your imaging first. ? Electronically signed by: Josselyn Spence MD, [facility] ([phone]), at 06/17/2024 4:49 PM Narrative 06/17/2024 4:49 [...] who have questions please contactthe health healthcare insurance sales agent that requested your imaging first. Electronically signed by: Josselyn Spence MD, [facility]([phone]), at 06/17/2024 4:49 PM Keila Hanley [employer]CIAL [employer] OFFICER IMG DX ORDERABLES * (ABNORMAL) POC, GLUCOSE (06/17/2024 11:04 AM EST) Glucometer, POC 245(H) 65 - 199 mg/dL 06/17/2024 11:[address] [facility] Comment:Supplemental ranges: <140 mg/dL before meals <180 mg/dL all other times of the day. Blood CAPILLARY BLOOD / Unknown 06/17/2024 11:04 AM EST 06/17/2024 11:04 AM EST Bobby Loja MD POINT OF CARE TEST O NIKA Performing Organization Address [facility] Co de Phone Number [facility] [place] [address] * POC, GLUCOSE (06/17/2024 7:49 AM EST) Glucometer, POC 141 65 - 199 mg/dL 06/17/2024 7:[address] [facility] Comment:Supplemental ranges: <140 mg/dL before meals <180 mg/dL all other times of the day. Blood CAPILLARY BLOOD / Unknown 06/17/2024 7:49 AM EST 06/17/2024 7:55 AM EST Bobby Loja MD POINT OF CARE TEST O NIKA Performing Organization Address City/[facility]/ZIP Co de Phone Number [facility] [place] [address] * POC, GLUCOSE (06/17/2024 4:16 AM EST) Glucometer, POC 139 65 - 199 mg/dL 06/17/2024 4:[address] [facility] Comment:Supplemental ranges: <140 mg/dL before meals <180 mg/dL all other times of the day. Blood CAPILLARY BLOOD / Unknown 06/17/2024 4:16 AM EST 06/17/2024 4:17 AM EST Bobby Loja MD POINT OF CARE TEST O RDERABLES Performing Organization Address City/[facility]/ZIP Co de Phone Number [facility] [place] [address] * Lactate, Whole Blood (06/17/2024 2:39 AM EST) [facility] Lactate, Whole Blood 1.3 0.5 - 2.2 mmol/L 06/17/2024 2:[address] [facility] Blood VENOUS BLOOD SPECIMEN / Unknown Venipuncture / Unknown 06/17/2024 2:39 AM EST 06/17/2024 2:43 AM EST Bobby Loja MD CHEMISTRY ORDERABLES Performing Organization Address City/[facility]/ZIP Co de Phone Number [facility] [place] [address] * (ABNORMAL) Hemogram (06/17/2024 2:39 AM EST) [facility] White Blood Cell 13.53(H) 4.00 - 9.50 x10(3)/mc L 06/17/2024 2:[address] [facility] Red Blood Cell 3.55(L) 4.58 - 5.54 x10(6)/mc L 06/17/2024 2:[address] [facility] Hemoglobin 10.8(L) 13.7 - 16.5 g/dL 06/17/2024 2:[address] [facility] Hematocrit 33.0(L) 40.5 - 48.5 % 06/17/2024 2:[address] [facility] Mean Cell Volume 93.0 82.9 - 93.1 fL 06/17/2024 2:[address] [facility] Mean Cell Hemoglobin 30.4 27.5 - 32.1 pg 06/17/2024 2:53 AM [facility] Mean Cell Hemoglobin Concentration 32.7 32.0 - 35.7 g/dL 06/17/2024 2:53 AM [facility] Platelet 101(L) 145 - 357 x10(3)/mc L 06/17/2024 2:53 AM [facility] Mean Platelet Volume 10.4 7.6 - 12.9 fL 06/17/2024 2:53 AM [facility] RDW Standard Deviation 48.4(H) 36.0 - 45.0 fL 06/17/2024 2:53 AM [facility] RDW coefficient of variation 14.1(H) 11.4 - 13.8 % 06/17/2024 2:53 AM [facility] NRBC% auto 0.0 % 06/17/2024 2:53 AM [facility] NRBC Absolute <0.01 <0.01 x10(3)/mc L 06/17/2024 2:53 AM [facility] Blood VENOUS BLOOD SPECIMEN / Unknown Venipuncture / Unknown 06/17/2024 2:39 AM EST 06/17/2024 2:43 AM EST Bobby Loja MD HEMATOLOGY ORDERABLE S [facility] [place] [address] * (ABNORMAL) Basic Metabolic Panel (06/17/2024 2:39 AM EST) Glucose 149 65 - 199 mg/dL 06/17/2024 3:14 AM [facility] Comment:Glucose Concentratio n >=200 mg/dL plus symptoms is consistent with Diabetes Mellitus. Blood Urea Nitrogen 42(H) 10 - 20 mg/dL 06/17/2024 3:[address] [facility] Creatinine 1.52(H) 0.80 - 1.50 mg/dL 06/17/2024 3:[address] [facility] Sodium 133(L) 135 - 145 mMol/L 06/17/2024 3:14 AM [facility] Potassium 4.5 3.5 - 5.0 mMol/L 06/17/2024 3:14 AM [facility] Chloride 101 98 - 107 mMol/L 06/17/2024 3:14 AM [facility] Carbon Dioxide 23 22 - 31 mMol/L 06/17/2024 3:14 AM [facility] Anion Gap 9 5 - 15 mMol/L 06/17/2024 3:14 AM [facility] Calcium 8.8 8.5 - 10.5 mg/dL 06/17/2024 3:14 AM [facility] Est Glomerular Filtration Rate - Male 50 mL/min/1. 73 m?? 06/17/2024 3:[address] [facility] Comment: This patient's estimated GFR [...] AM EST Bobby Loja MD CHEMISTRY ORDERABLES [facility] [place] [address] * (ABNORMAL) POC, GLUCOSE (06/17/2024 12:13 AM EST) Glucometer, POC 211(H) 65 - 199 mg/dL 06/17/2024 12:[address] [facility] Comment:Supplemental ranges: <140 mg/dL before meals <180 mg/dL all other times of the day. Blood CAPILLARY BLOOD / Unknown 06/17/2024 12:13 AM EST 06/17/2024 12:14 AM EST Bobby Loja MD POINT OF CARE TEST O NIKA Performing Organization Address [facility] Co de Phone Number [facility] [place] [address] * (ABNORMAL) POC, GLUCOSE (06/16/2024 7:22 PM EST) Glucometer, POC 229(H) 65 - 199 mg/dL 06/16/2024 7:[address] [facility] Comment:Supplemental ranges: <140 mg/dL before meals <180 mg/dL all other times of the day. Blood CAPILLARY BLOOD / Unknown 06/16/2024 7:22 PM EST 06/16/2024 7:22 PM EST Bobby Loja MD POINT OF CARE TEST Abimael MAHER Performing Organization Address [facility] Co de Phone Number [facility] [place] [address] * (ABNORMAL) POC, GLUCOSE (06/16/2024 6:14 PM EST) Glucometer, POC 220(H) 65 - 199 mg/dL 06/16/2024 6:[address] [facility] Comment:Supplemental ranges: <140 mg/dL before meals <180 mg/dL all other times of the day. Blood CAPILLARY BLOOD / Unknown 06/16/2024 6:14 PM EST 06/16/2024 6:14 PM EST Bobby Loja MD POINT OF CARE TEST Abimael MAHER [facility] [place] [address] * Lactate, Whole Blood (06/16/2024 6:14 PM EST) Lactate, Whole Blood 1.8 0.5 - 2.2 mmol/L 06/16/2024 6:[address] [facility] Blood VENOUS BLOOD SPECIMEN / Unknown Venipuncture / Unknown 06/16/2024 6:14 PM EST 06/16/2024 6:25 PM EST Bobby Loja MD CHEMISTRY ORDERABLES Performing Organization Address City/[facility]/ZIP Co de Phone Number [facility] [place] [address] * (ABNORMAL) POC, GLUCOSE (06/16/2024 4:14 PM EST) Glucometer, POC 240(H) 65 - 199 mg/dL 06/16/2024 4:[address] [facility] Comment:Supplemental ranges: <140 mg/dL before meals <180 mg/dL all other times of the day. Blood CAPILLARY BLOOD / Unknown 06/16/2024 4:14 PM EST 06/16/2024 4:14 PM EST Bobby Loja MD POINT OF CARE TEST O RDERABLES [facility] [place] [address] * POC, GLUCOSE (06/16/2024 11:49 AM EST) Glucometer, POC 199 65 - 199 mg/dL 06/16/2024 11:[address] [facility] Comment:Supplemental ranges: <140 mg/dL before meals <180 mg/dL all other times of the day. Blood CAPILLARY BLOOD / Unknown 06/16/2024 11:49 AM EST 06/16/2024 11:49 AM EST Bobby Loja MD POINT OF CARE TEST O RDERABLES [facility] [place] [address] * (ABNORMAL) Hemogram (06/16/2024 11:44 AM EST) White Blood Cell 17.91(H) 4.00 - 9.50 x10(3)/mc L 06/16/2024 12:25 PM [facility] Red Blood Cell 3.47(L) 4.58 - 5.54 x10(6)/mc L 06/16/2024 12:25 PM [facility] Hemoglobin 10.5(L) 13.7 - 16.5 g/dL 06/16/2024 12:25 PM [facility] Hematocrit 33.1(L) 40.5 - 48.5 % 06/16/2024 12:25 PM [facility] Mean Cell Volume 95.4(H) 82.9 - 93.1 fL 06/16/2024 12:25 PM [facility] Mean Cell Hemoglobin 30.3 27.5 - 32.1 pg 06/16/2024 12:25 PM [facility] Mean Cell Hemoglobin Concentration 31.7(L) 32.0 - 35.7 g/dL 06/16/2024 12:25 PM [facility] Platelet 101(L) 145 - 357 x10(3)/mc L 06/16/2024 12:25 PM [facility] Mean Platelet Volume 10.6 7.6 - 12.9 fL 06/16/2024 12:25 PM [facility] RDW Standard Deviation 49.5(H) 36.0 - 45.0 fL 06/16/2024 12:25 PM [facility] RDW coefficient of variation 14.2(H) 11.4 - 13.8 % 06/16/2024 12:25 PM [facility] NRBC% auto 0.0 % 06/16/2024 12:25 PM [facility] NRBC Absolute <0.01 <0.01 x10(3)/mc L 06/16/2024 12:[address] [facility] Blood VENOUS BLOOD SPECIMEN / Unknown Venipuncture / Unknown 06/16/2024 11:44 AM EST 06/16/2024 12:03 PM EST Bobby Loja MD HEMATOLOGY ORDERABLE S [facility] [place] [address] * Lactate, Whole Blood (06/16/2024 9:02 AM EST) Lactate, Whole Blood 1.8 0.5 - 2.2 mmol/L 06/16/2024 9:[address] [facility] Blood VENOUS BLOOD SPECIMEN / Unknown Venipuncture / Unknown 06/16/2024 9:02 AM EST 06/16/2024 9:17 AM EST Bobby Loja MD CHEMISTRY ORDERABLES [facility] [place] [address] * POC, GLUCOSE (06/16/2024 7:44 AM EST) Glucometer, POC 129 65 - 199 mg/dL 06/16/2024 7:[address] [facility] Comment:Supplemental ranges: <140 mg/dL before meals <180 mg/dL all other times of the day. Blood CAPILLARY BLOOD / Unknown 06/16/2024 7:44 AM EST 06/16/2024 7:44 AM EST Bobby Loja MD POINT OF CARE TEST O RDERABLES [facility] [place] [address] * POC, GLUCOSE (06/16/2024 4:01 AM EST) Glucometer, POC 158 65 - 199 mg/dL 06/16/2024 4:[address] [facility] Comment:Supplemental ranges: <140 mg/dL before meals <180 mg/dL all other times of the day. Blood CAPILLARY BLOOD / Unknown 06/16/2024 4:01 AM EST 06/16/2024 4:01 AM EST Bobby Loja MD POINT OF CARE TEST O RDERABLES [facility] [place] [address] * (ABNORMAL) Basic Metabolic Panel (06/16/2024 2:23 AM EST) Glucose 177 65 - 199 mg/dL 06/16/2024 3:13 AM [facility] Comment:Glucose Concentratio n >=200 mg/dL plus symptoms is consistent with Diabetes Mellitus. Blood Urea Nitrogen 37(H) 10 - 20 mg/dL 06/16/2024 3:13 AM [facility] Creatinine 2.10(H) 0.80 - 1.50 mg/dL 06/16/2024 3:13 AM [facility] Sodium 132(L) 135 - 145 mMol/L 06/16/2024 3:13 AM [facility] Potassium 4.5 3.5 - 5.0 mMol/L 06/16/2024 3:13 AM [facility] Chloride 99 98 - 107 mMol/L 06/16/2024 3:13 AM [facility] Carbon Dioxide 22 22 - 31 mMol/L 06/16/2024 3:13 AM [facility] Anion Gap 11 5 - 15 mMol/L 06/16/2024 3:13 AM [facility] Calcium 9.0 8.5 - 10.5 mg/dL 06/16/2024 3:13 AM [facility] Est Glomerular Filtration Rate - Male 34 mL/min/1. 73 m?? 06/16/2024 3:[address] [facility] Comment: This patient's estimated GFR [...] Loja MD CHEMISTRY ORDERABLES Performing Organization Address [facility]/ZIP Co de Phone Number [facility] [place] [address] * POC, GLUCOSE (06/16/2024 2:21 AM EST) Glucometer, POC 176 65 - 199 mg/dL 06/16/2024 2:[address] [facility] Comment:Supplemental ranges: <140 mg/dL before meals <180 mg/dL all other times of the day. Blood CAPILLARY BLOOD / Unknown 06/16/2024 2:21 AM EST 06/16/2024 2:31 AM EST Bobby Loja MD POINT OF CARE TEST O RDERABLES Performing Organization Address City/[facility]/ZIP Co de Phone Number [facility] [place] [address] * (ABNORMAL) POC, GLUCOSE (06/16/2024 12:09 AM EST) Glucometer, POC 222(H) 65 - 199 mg/dL 06/16/2024 12:[address] [facility] Comment:Supplemental ranges: <140 mg/dL before meals <180 mg/dL all other times of the day. Blood CAPILLARY BLOOD / Unknown 06/16/2024 12:09 AM EST 06/16/2024 12:09 AM EST Narrative Authorizing Provider Result Saranya Loja MD POINT OF CARE TEST O NIKA Performing Organization Address City/[facility]/ZIP Co de Phone Number [facility] [place] [address] * (ABNORMAL) POC, GLUCOSE (06/15/2024 10:07 PM EST) Glucometer, POC 320(H) 65 - 199 mg/dL 06/15/2024 10:[address] [facility] Comment:Supplemental ranges: <140 mg/dL before meals <180 mg/dL all other times of the day. Blood CAPILLARY BLOOD / Unknown 06/15/2024 10:07 PM EST 06/15/2024 10:07 PM EST Bobby Loja MD POINT OF CARE TEST O NIKA Performing Organization Address [facility] Co de Phone Number [facility] [place] [address] * (ABNORMAL) POC, GLUCOSE (06/15/2024 7:56 PM EST) Glucometer, POC 304(H) 65 - 199 mg/dL 06/15/2024 7:[address] [facility] Comment:Supplemental ranges: <140 mg/dL before meals <180 mg/dL all other times of the day. Blood CAPILLARY BLOOD / Unknown 06/15/2024 7:56 PM EST 06/15/2024 7:56 PM EST Narrative Authorizing Provider Result Saranya Loja MD POINT OF CARE TEST O NIKA Performing Organization Address City/[facility]/ZIP Co de Phone Number [facility] [place] [address] * (ABNORMAL) POC, GLUCOSE (06/15/2024 7:52 PM EST) Glucometer, POC 288(H) 65 - 199 mg/dL 06/15/2024 7:[address] [facility] Comment:Supplemental ranges: <140 mg/dL before meals <180 mg/dL all other times of the day. Blood CAPILLARY BLOOD / Unknown 06/15/2024 7:52 PM EST 06/15/2024 7:52 PM EST Bobby Loja MD POINT OF CARE TEST O NIKA Performing Organization Address City/[facility]/ZIP Co de Phone Number [facility] [place] [address] * POC, GLUCOSE (06/15/2024 4:21 PM EST) Glucometer, POC 192 65 - 199 mg/dL 06/15/2024 4:[address] [facility] Comment:Supplemental ranges: <140 mg/dL before meals <180 mg/dL all other times of the day. Blood CAPILLARY BLOOD / Unknown 06/15/2024 4:21 PM EST 06/15/2024 4:21 PM EST Bobby Loja MD POINT OF CARE TEST O NIKA Performing Organization Address [facility] Co de Phone Number [facility] [place] [address] * POC, GLUCOSE (06/15/2024 3:27 PM EST) Glucometer, POC 155 65 - 199 mg/dL 06/15/2024 3:[address] [facility] Comment:Supplemental ranges: <140 mg/dL before meals <180 mg/dL all other times of the day. Blood CAPILLARY BLOOD / Unknown 06/15/2024 3:27 PM EST 06/15/2024 3:27 PM EST Bobby Loja MD POINT OF CARE TEST O INKA Performing Organization Address City/[facility]/ZIP Co de Phone Number [facility] [place] [address] * POC, GLUCOSE (06/15/2024 2:23 PM EST) Glucometer, POC 160 65 - 199 mg/dL 06/15/2024 2:[address] [facility] Comment:Supplemental ranges: <140 mg/dL before meals <180 mg/dL all other times of the day. Blood CAPILLARY BLOOD / Unknown 06/15/2024 2:23 PM EST 06/15/2024 2:23 PM EST Bobby Loja MD POINT OF CARE TEST O NIKA Performing Organization Address [facility] Co de Phone Number [facility] [place] [address] * POC, GLUCOSE (06/15/2024 1:26 PM EST) Glucometer, POC 167 65 - 199 mg/dL 06/15/2024 1:[address] [facility] Comment:Supplemental ranges: <140 mg/dL before meals <180 mg/dL all other times of the day. Blood CAPILLARY BLOOD / Unknown 06/15/2024 1:26 PM EST 06/15/2024 1:26 PM EST Bobby Loja MD POINT OF CARE TEST O NIKA Performing Organization Address [facility]/ZIP Co de Phone Number [facility] [place] [address] * (ABNORMAL) POC, GLUCOSE (06/15/2024 12:55 PM EST) Glucometer, POC 210(H) 65 - 199 mg/dL 06/15/2024 12:[address] [facility] Comment:Supplemental ranges: <140 mg/dL before meals <180 mg/dL all other times of the day. Blood CAPILLARY BLOOD / Unknown 06/15/2024 12:55 PM EST 06/15/2024 12:55 PM EST Bobby Loja MD POINT OF CARE TEST O NIKA [facility] [place] [address] * (ABNORMAL) POC, GLUCOSE (06/15/2024 11:29 AM EST) Glucometer, POC 220(H) 65 - 199 mg/dL 06/15/2024 11:[address] [facility] Comment:Supplemental ranges: <140 mg/dL before meals <180 mg/dL all other times of the day. Blood CAPILLARY BLOOD / Unknown 06/15/2024 11:29 AM EST 06/15/2024 11:29 AM EST Bobby Loja MD POINT OF CARE TEST O RDERABLES [facility] [place] [address] * (ABNORMAL) Basic Metabolic Panel (06/15/2024 11:23 AM EST) Glucose 215(H) 65 - 199 mg/dL 06/15/2024 12:[address] [facility] Comment:Glucose Concentratio n >=200 mg/dL plus symptoms is consistent with Diabetes Mellitus. Blood Urea Nitrogen 24(H) 10 - 20 mg/dL 06/15/2024 12:08 PM [facility] Creatinine 1.54(H) 0.80 - 1.50 mg/dL 06/15/2024 12:08 PM [facility] Sodium 135 135 - 145 mMol/L 06/15/2024 12:08 PM [facility] Potassium 4.5 3.5 - 5.0 mMol/L 06/15/2024 12:08 PM [facility] Chloride 105 98 - 107 mMol/L 06/15/2024 12:08 PM [facility] Carbon Dioxide 19(L) 22 - 31 mMol/L 06/15/2024 12:08 PM [facility] Anion Gap 11 5 - 15 mMol/L 06/15/2024 12:08 PM [facility] Calcium 8.3(L) 8.5 - 10.5 mg/dL 06/15/2024 12:[address] [facility] Est Glomerular Filtration Rate - Male 49 mL/min/1. 73 m?? 06/15/2024 12:[address] [facility] Comment: This patient's estimated GFR [...] CHEMISTRY ORDERABLES Performing Organization Address City/[facility]/ZIP Co de Phone Number [facility] [place] [address] * POC, GLUCOSE (06/15/2024 10:29 AM EST) Glucometer, POC 189 65 - 199 mg/dL 06/15/2024 10:[address] [facility] Comment:Supplemental ranges: <140 mg/dL before meals <180 mg/dL all other times of the day. Blood CAPILLARY BLOOD / Unknown 06/15/2024 10:29 AM EST 06/15/2024 10:29 AM EST Bobby Loja MD POINT OF CARE TEST O RDERABLES [facility] [place] [address] * POC, GLUCOSE (06/15/2024 9:45 AM EST) Glucometer, POC 178 65 - 199 mg/dL 06/15/2024 9:45 AM [facility] Comment:Supplemental ranges: <140 mg/dL before meals <180 mg/dL all other times of the day. Blood CAPILLARY BLOOD / Unknown 06/15/2024 9:45 AM EST 06/15/2024 9:45 AM EST Bobby Loja MD POINT OF CARE TEST O NIKA Performing Organization Address [facility] Co de Phone Number [facility] [place] [address] * (ABNORMAL) Cooximetry, POC (06/15/2024 9:31 AM EST) [facility] pO2, Coox 38 mmHg 06/15/2024 9:34 AM [facility] Hemoglobin, Coox 12.9(L) 13.7 - 16.5 g/dL 06/15/2024 9:34 AM [facility] Oxyhemoglobin, Coox 72.1 % 06/15/2024 9:34 AM [facility] Carboxyhemoglo bin, Coox 0.9 % 06/15/2024 9:34 AM [facility] Comment: Nonsmokers: 0.5-1.5% COHB ?? Smokers: Variable ??but usually less than 10% ?? Toxic: 20-30% COHB ?? Lethal: Greater than 60% COHB Methemoglobin, Coox 0.3 <=1.5 % 06/15/2024 9:34 AM [facility] Blood (Mixed Venous) 06/15/2024 9:31 AM EST 06/15/2024 9:34 AM EST Bobby Loja MD POINT OF CARE TEST O NIKA Performing Organization Address [facility] Co de Phone Number [facility] [place] [address] * Cooximetry, POC (06/15/2024 9:22 AM EST) pO2, Coox 30 mmHg 06/15/2024 9:25 AM [facility] Hemoglobin, Coox 06/15/2024 9:25 AM [facility] Comment:QUES Oxyhemoglobin, Coox 06/15/2024 9:25 AM [facility] Comment:QUES Carboxyhemoglo bin, Coox 06/15/2024 9:25 AM [facility] Comment:QUES Methemoglobin, Coox 06/15/2024 9:25 AM [facility] Comment:QUES Blood (Mixed Venous) 06/15/2024 9:22 AM EST 06/15/2024 9:25 AM EST Bobby Loja MD POINT OF CARE TEST O RDERABLES [facility] [place] [address] * (ABNORMAL) Blood Gas, Arterial POC (06/15/2024 9:19 AM EST) pH, Arterial 7.31(L) 7.35 - 7.45 06/15/2024 9:21 AM [facility] PCO2, Arterial 36 35 - 45 mmHg 06/15/2024 9:21 AM [facility] PO2, Arterial 94 85 - 104 mmHg 06/15/2024 9:21 AM [facility] Bicarbonate, Arterial 18.0(L) 20.0 - 26.0 mmol/L 06/15/2024 9:21 AM [facility] Base Excess, Arterial -8.2(L) -3.0 - 3.0 mmol/L 06/15/2024 9:21 AM [facility] Hemoglobin, Arterial 12.7(L) 13.7 - 16.5 g/dL 06/15/2024 9:21 AM [facility] Oxyhemoglobin, Arterial 96.0 94.0 - 97.0 % 06/15/2024 9:21 AM [facility] Carboxyhemoglobin , Arterial 0.5 % 06/15/2024 9:21 AM [facility] Comment: Nonsmokers: 0.5-1.5% COHB ?? Smokers: Variable ??but usually less than 10% ?? Toxic: 20-30% COHB ?? Lethal: Greater than 60% COHB Methemoglobin, Arterial 0.3 <=1.5 % 06/15/2024 9:21 AM [facility] Sodium, Arterial 136 135 - 145 mmol/L 06/15/2024 9:21 AM [facility] Potassium, Arterial 4.0 3.5 - 5.0 mmol/L 06/15/2024 9:21 AM [facility] Chloride, Arterial 106 98 - 107 mmol/L 06/15/2024 9:21 AM [facility] Lactate, Arterial 1.7 0.5 - 2.2 mmol/L 06/15/2024 9:21 AM [facility] Flow Rate 2.0 L/min 06/15/2024 9:21 AM [facility] IONIZED CALCIUM, ARTERIAL 1.14(L) 1.15 - 1.33 mmol/L 06/15/2024 9:21 AM [facility] Glucose, Arterial 193 65 - 199 mg/dL 06/15/2024 9:21 AM [facility] Comment:Glucose Concentratio n >=200 mg/dL plus symptoms is consistent with Diabetes Mellitus. Blood ARTERIAL BLOOD / Unknown 06/15/2024 9:19 AM EST 06/15/2024 9:20 AM EST Bobby Loja MD POINT OF CARE TEST O RDERABLES [facility] [place] [address] * (ABNORMAL) POC, GLUCOSE (06/15/2024 8:37 AM EST) [facility] Signature Glucometer, POC 204(H) 65 - 199 mg/dL 06/15/2024 8:[address] [facility] Comment:Supplemental ranges: <140 mg/dL before meals <180 mg/dL all other times of the day. Blood CAPILLARY BLOOD / Unknown 06/15/2024 8:37 AM EST 06/15/2024 8:37 AM EST Bobby Loja MD POINT OF CARE TEST O NIKA Performing Organization Address [facility] Co de Phone Number [facility] [place] [address] * POC, GLUCOSE (06/15/2024 7:37 AM EST) Glucometer, POC 199 65 - 199 mg/dL 06/15/2024 7:[address] [facility] Comment:Supplemental ranges: <140 mg/dL before meals <180 mg/dL all other times of the day. Blood CAPILLARY BLOOD / Unknown 06/15/2024 7:37 AM EST 06/15/2024 7:38 AM EST Bobby Loja MD POINT OF CARE TEST O NIKA Performing Organization Address [facility] Co de Phone Number [facility] [place] [address] * (ABNORMAL) POC, GLUCOSE (06/15/2024 7:01 AM EST) Glucometer, POC 203(H) 65 - 199 mg/dL 06/15/2024 7:[address] [facility] Comment:Supplemental ranges: <140 mg/dL before meals <180 mg/dL all other times of the day. Blood CAPILLARY BLOOD / Unknown 06/15/2024 7:01 AM EST 06/15/2024 7:01 AM EST Bobby Loja MD POINT OF CARE TEST O NIKA Performing Organization Address City/[facility]/ZIP Co de Phone Number [facility] [place] [address] * XR Chest One View (06/15/2024 6:31 AM EST) WORKSTATION ID [id number] RAD Anatomical Region Laterality Modality Chest N/A [...] have questions please contact the health healthcare insurance sales agent that requested your imaging first. ? Electronically signed by: Stuart Aponte MD, [facility] ??([phone]), at 06/15/2024 10:38 AM Narrative 06/15/2024 10:38 [...] who have questions please contactthe health healthcare insurance sales agent that requested your imaging first. Electronically signed by: Stuart Aponte MD, [facility]([phone]), at 06/15/2024 10:38 AM Bobby Loja MD IMG DX ORDERABLES * POC, GLUCOSE (06/15/2024 6:02 AM EST) Glucometer, POC 179 65 - 199 mg/dL 06/15/2024 6:[address] [facility] Comment:Supplemental ranges: <140 mg/dL before meals <180 mg/dL all other times of the day. Blood CAPILLARY BLOOD / Unknown 06/15/2024 6:02 AM EST 06/15/2024 6:02 AM EST Bobby Loja MD POINT OF CARE TEST O NIKA Performing Organization Address City/[facility]/ZIP Co de Phone Number [facility] [place] [address] * POC, GLUCOSE (06/15/2024 5:06 AM EST) Glucometer, POC 160 65 - 199 mg/dL 06/15/2024 5:[address] [facility] Comment:Supplemental ranges: <140 mg/dL before meals <180 mg/dL all other times of the day. Blood CAPILLARY BLOOD / Unknown 06/15/2024 5:06 AM EST 06/15/2024 5:06 AM EST Bobby Loja MD POINT OF CARE TEST O NIKA [facility] [place] [address] * POC, GLUCOSE (06/15/2024 4:05 AM EST) Glucometer, POC 160 65 - 199 mg/dL 06/15/2024 4:[address] [facility] Comment:Supplemental ranges: <140 mg/dL before meals <180 mg/dL all other times of the day. Blood CAPILLARY BLOOD / Unknown 06/15/2024 4:05 AM EST 06/15/2024 4:06 AM EST Bobby Loja MD POINT OF CARE TEST O NIKA Performing Organization Address City/[facility]/ZIP Co de Phone Number [facility] [place] [address] * POC, GLUCOSE (06/15/2024 3:07 AM EST) Glucometer, POC 151 65 - 199 mg/dL 06/15/2024 3:[address] [facility] Comment:Supplemental ranges: <140 mg/dL before meals <180 mg/dL all other times of the day. Blood CAPILLARY BLOOD / Unknown 06/15/2024 3:07 AM EST 06/15/2024 3:07 AM EST Bobby Loja MD POINT OF CARE TEST O NIKA Performing Organization Address City/[facility]/ZIP Co de Phone Number [facility] [place] [address] * (ABNORMAL) Basic Metabolic Panel (06/15/2024 1:48 AM EST) Glucose 140 65 - 199 mg/dL 06/15/2024 2:[address] [facility] Comment:Glucose Concentratio n >=200 mg/dL plus symptoms is consistent with Diabetes Mellitus. Blood Urea Nitrogen 21(H) 10 - 20 mg/dL 06/15/2024 2:[address] [facility] Creatinine 1.27 0.80 - 1.50 mg/dL 06/15/2024 2:[address] [facility] Sodium 140 135 - 145 mMol/L 06/15/2024 2:38 AM [facility] Potassium 4.4 3.5 - 5.0 mMol/L 06/15/2024 2:38 AM [facility] Chloride 108(H) 98 - 107 mMol/L 06/15/2024 2:38 AM [facility] Carbon Dioxide 23 22 - 31 mMol/L 06/15/2024 2:38 AM [facility] Anion Gap 9 5 - 15 mMol/L 06/15/2024 2:38 AM [facility] Calcium 8.3(L) 8.5 - 10.5 mg/dL 06/15/2024 2:38 AM [facility] Est Glomerular Filtration Rate - Male 62 mL/min/1. 73 m?? 06/15/2024 2:38 AM [facility] [...] AM EST Bobby Loja MD CHEMISTRY ORDERABLES [facility] [place] [address] * (ABNORMAL) CBC (with Diff) (06/15/2024 1:48 AM EST) White Blood Cell 11.71(H) 4.00 - 9.50 x10(3)/mc L 06/15/2024 2:13 AM [facility] Red Blood Cell 4.14(L) 4.58 - 5.54 x10(6)/mc L 06/15/2024 2:13 AM [facility] Hemoglobin 12.5(L) 13.7 - 16.5 g/dL 06/15/2024 2:13 AM [facility] Hematocrit 38.4(L) 40.5 - 48.5 % 06/15/2024 2:13 AM [facility] Mean Cell Volume 92.8 82.9 - 93.1 fL 06/15/2024 2:13 AM [facility] Mean Cell Hemoglobin 30.2 27.5 - 32.1 pg 06/15/2024 2:13 AM [facility] Mean Cell Hemoglobin Concentration 32.6 32.0 - 35.7 g/dL 06/15/2024 2:13 AM [facility] Platelet 101(L) 145 - 357 x10(3)/mc L 06/15/2024 2:13 AM [facility] Mean Platelet Volume 10.0 7.6 - 12.9 fL 06/15/2024 2:13 AM [facility] RDW Standard Deviation 48.8(H) 36.0 - 45.0 fL 06/15/2024 2:13 AM [facility] RDW coefficient of variation 14.2(H) 11.4 - 13.8 % 06/15/2024 2:13 AM [facility] NRBC% auto 0.0 % 06/15/2024 2:13 AM [facility] NRBC Absolute <0.01 <0.01 x10(3)/mc L 06/15/2024 2:13 AM [facility] Neutrophil % 79.7 % 06/15/2024 2:13 AM [facility] Neutrophil Absolute (ANC) - Automated 9.34(H) 1.70 - 6.10 x10(3)/mc L 06/15/2024 2:[address] [facility] Lymph % 8.0 % 06/15/2024 2:[address] [facility] Lymph Absolute 0.94 0.90 - 3.20 x10(3)/mc L 06/15/2024 2:[address] [facility] Monocyte % 11.4 % 06/15/2024 2:[address] [facility] Monocyte Absolute 1.33(H) 0.30 - 0.90 x10(3)/mc L 06/15/2024 2:[address] [facility] Eos % 0.2 % 06/15/2024 2:[address] [facility] Eos Absolute <0.04 0.00 - 0.40 x10(3)/mc L 06/15/2024 2:[address] [facility] Basophil % 0.2 % 06/15/2024 2:[address] [facility] Baso Absolute <0.04 0.00 - 0.10 x10(3)/mc L 06/15/2024 2:[address] [facility] Immature Gran % 0.5 % 2:[address] [facility] Immature Gran Absolute 0.06(H) 0.00 - 0.04 x10(3)/mc L 06/15/2024 2:[address] [facility] Blood VENOUS BLOOD SPECIMEN / Unknown Venipuncture / Unknown 06/15/2024 1:48 AM EST 06/15/2024 1:52 AM EST Bobby Loja MD HEMATOLOGY ORDERABLE S [facility] [place] [address] * (ABNORMAL) Troponin - Single (06/15/2024 1:48 AM EST) Troponin-T, High Sensitivity 667(H) <=22 ng/L 06/15/2024 2:[address] [facility] Comment: This patient's troponin T [...] troponin value can be found in the [facility] Laboratory Test Catalog Troponin - [email or web address].org/[email or web address] Reference: Fourth [place] Definition of Myocardial Infarction. Journal of the [place] [employer] 2018;72:3483-1792 Blood VENOUS BLOOD SPECIMEN / Unknown Venipuncture / Unknown 06/15/2024 1:48 AM EST 06/15/2024 1:52 AM EST Bobby Loja MD CHEMISTRY ORDERABLES [facility] [place] [address] * (ABNORMAL) Blood Gas, Arterial POC (06/15/2024 1:46 AM EST) pH, Arterial 7.33(L) 7.35 - 7.45 06/15/2024 1:[address] [facility] PCO2, Arterial 40 35 - 45 mmHg 06/15/2024 1:[address] [facility] PO2, Arterial 131(H) 85 - 104 mmHg 06/15/2024 1:[address] [facility] Bicarbonate, Arterial 20.7 20.0 - 26.0 mmol/L 06/15/2024 1:47 AM [facility] Base Excess, Arterial -5.2(L) -3.0 - 3.0 mmol/L 06/15/2024 1:47 AM [facility] Hemoglobin, Arterial 13.4(L) 13.7 - 16.5 g/dL 06/15/2024 1:47 AM [facility] Oxyhemoglobin, Arterial 97.9(H) 94.0 - 97.0 % 06/15/2024 1:47 AM [facility] Carboxyhemoglobin , Arterial 0.5 % 06/15/2024 1:47 AM [facility] Comment: Nonsmokers: 0.5-1.5% COHB ?? Smokers: Variable ??but usually less than 10% ?? Toxic: 20-30% COHB ?? Lethal: Greater than 60% COHB Methemoglobin, Arterial 0.3 <=1.5 % 06/15/2024 1:47 AM [facility] Sodium, Arterial 139 135 - 145 mmol/L 06/15/2024 1:47 AM [facility] Potassium, Arterial 4.2 3.5 - 5.0 mmol/L 06/15/2024 1:47 AM [facility] Chloride, Arterial 107 98 - 107 mmol/L 06/15/2024 1:47 AM [facility] Lactate, Arterial 1.8 0.5 - 2.2 mmol/L 06/15/2024 1:47 AM [facility] Fraction of Inspired Oxygen 40 % 06/15/2024 1:47 AM [facility] PF Ratio 328 Ratio 06/15/2024 1:47 AM [facility] Comment:PF ratio calculated using the non-temperature corrected pO2 result. IONIZED CALCIUM, ARTERIAL 1.17 1.15 - 1.33 mmol/L 06/15/2024 1:47 AM [facility] Glucose, Arterial 127 65 - 199 mg/dL 06/15/2024 1:[address] [facility] Comment:Glucose Concentratio n >=200 mg/dL plus symptoms is consistent with Diabetes Mellitus. Blood ARTERIAL BLOOD / Unknown 06/15/2024 1:46 AM EST 06/15/2024 1:47 AM EST Narrative Authorizing Provider Result Saranya Loja MD POINT OF CARE TEST O RDERABLES [facility] [place] [address] * POC, GLUCOSE (06/15/2024 1:05 AM EST) Glucometer, POC 116 65 - 199 mg/dL 06/15/2024 1:[address] [facility] Comment:Supplemental ranges: <140 mg/dL before meals <180 mg/dL all other times of the day. Blood CAPILLARY BLOOD / Unknown 06/15/2024 1:05 AM EST 06/15/2024 1:05 AM EST Bobby Loja MD POINT OF CARE TEST O NIKA Performing Organization Address City/[facility]/ZIP Co de Phone Number [facility] [place] [address] * POC, GLUCOSE (06/15/2024 12:16 AM EST) Glucometer, POC 135 65 - 199 mg/dL 06/15/2024 12:[address] [facility] Comment:Supplemental ranges: <140 mg/dL before meals <180 mg/dL all other times of the day. Blood CAPILLARY BLOOD / Unknown 06/15/2024 12:16 AM EST 06/15/2024 12:16 AM EST Narrative Authorizing Provider Result Saranya Loja MD POINT OF CARE TEST O RDERAPIETER [facility] [place] [address] * Potassium (06/14/2024 11:28 PM EST) Potassium 4.1 3.5 - 5.0 mMol/L 06/14/2024 11:[address] [facility] Blood VENOUS BLOOD SPECIMEN / Unknown Venipuncture / Unknown 06/14/2024 11:28 PM EST 06/14/2024 11:34 PM EST Bobby Loja MD CHEMISTRY ORDERABLES [facility] [place] [address] * POC, GLUCOSE (06/14/2024 10:58 PM EST) Glucometer, POC 126 65 - 199 mg/dL 06/14/2024 10:[address] [facility] Comment:Supplemental ranges: <140 mg/dL before meals <180 mg/dL all other times of the day. Blood CAPILLARY BLOOD / Unknown 06/14/2024 10:58 PM EST 06/14/2024 10:59 PM EST Narrative Authorizing Provider Result Saranya Loja MD POINT OF CARE TEST O RDERABLES Performing Organization Address City/[facility]/ZIP Co de Phone Number [facility] [place] [address] * POC, GLUCOSE (06/14/2024 9:55 PM EST) Glucometer, POC 152 65 - 199 mg/dL 06/14/2024 9:[address] [facility] Comment:Supplemental ranges: <140 mg/dL before meals <180 mg/dL all other times of the day. Blood CAPILLARY BLOOD / Unknown 06/14/2024 9:55 PM EST 06/14/2024 9:56 PM EST Narrative Authorizing Provider Result Saranya Loja MD POINT OF CARE TEST O RDERABLES [facility] [place] [address] * POC, GLUCOSE (06/14/2024 8:54 PM EST) Glucometer, POC 151 65 - 199 mg/dL 06/14/2024 8:[address] [facility] Comment:Supplemental ranges: <140 mg/dL before meals <180 mg/dL all other times of the day. Blood CAPILLARY BLOOD / Unknown 06/14/2024 8:54 PM EST 06/14/2024 8:54 PM EST Bobby Loja MD POINT OF CARE TEST O NIKA [facility] [place] [address] * POC, GLUCOSE (06/14/2024 7:51 PM EST) Glucometer, POC 169 65 - 199 mg/dL 06/14/2024 7:[address] [facility] Comment:Supplemental ranges: <140 mg/dL before meals <180 mg/dL all other times of the day. Blood CAPILLARY BLOOD / Unknown 06/14/2024 7:51 PM EST 06/14/2024 7:52 PM EST Bobby Loja MD POINT OF CARE TEST O NIKA Performing Organization Address City/[facility]/ZIP Co de Phone Number [facility] [place] [address] * POC, GLUCOSE (06/14/2024 6:49 PM EST) Glucometer, POC 194 65 - 199 mg/dL 06/14/2024 6:[address] [facility] Comment:Supplemental ranges: <140 mg/dL before meals <180 mg/dL all other times of the day. Blood CAPILLARY BLOOD / Unknown 06/14/2024 6:49 PM EST 06/14/2024 6:50 PM EST Bobby Loja MD POINT OF CARE TEST O NIKA [facility] [place] [address] * (ABNORMAL) Hemoglobin (06/14/2024 6:19 PM EST) Hemoglobin 13.1(L) 13.7 - 16.5 g/dL 06/14/2024 7:[address] [facility] Blood VENOUS BLOOD SPECIMEN / Unknown Venipuncture / Unknown 06/14/2024 6:19 PM EST 06/14/2024 6:28 PM EST Bobby Loja MD HEMATOLOGY ORDERABLE S Performing Organization Address City/[facility]/ZIP Co de Phone Number [facility] [place] [address] * Potassium (06/14/2024 6:19 PM EST) Pathologist [facility] Potassium 3.9 3.5 - 5.0 mMol/L 06/14/2024 6:[address] [facility] Blood VENOUS BLOOD SPECIMEN / Unknown Venipuncture / Unknown 06/14/2024 6:19 PM EST 06/14/2024 6:28 PM EST Narrative Authorizing Provider Result Saranya Loja MD CHEMISTRY ORDERABLES Performing Organization Address [facility] Co de Phone Number [facility] [place] [address] * (ABNORMAL) POC, GLUCOSE (06/14/2024 6:03 PM EST) Pathologist [facility] Glucometer, POC 201(H) 65 - 199 mg/dL 06/14/2024 6:[address] [facility] Comment:Supplemental ranges: <140 mg/dL before meals <180 mg/dL all other times of the day. Blood CAPILLARY BLOOD / Unknown 06/14/2024 6:03 PM EST 06/14/2024 6:03 PM EST Narrative Authorizing Provider Result Saranya Loja MD POINT OF CARE TEST O RDERABLES Performing Organization Address City/[facility]/ZIP Co de Phone Number [facility] [place] [address] * (ABNORMAL) Blood Gas, Arterial POC (06/14/2024 4:51 PM EST) pH, Arterial 7.32(L) 7.35 - 7.45 06/14/2024 4:52 PM [facility] PCO2, Arterial 46(H) 35 - 45 mmHg 06/14/2024 4:52 PM [facility] PO2, Arterial 85 85 - 104 mmHg 06/14/2024 4:52 PM [facility] Bicarbonate, Arterial 23.1 20.0 - 26.0 mmol/L 06/14/2024 4:52 PM [facility] Base Excess, Arterial -3.1(L) -3.0 - 3.0 mmol/L 06/14/2024 4:52 PM [facility] Hemoglobin, Arterial 14.3 13.7 - 16.5 g/dL 06/14/2024 4:52 PM [facility] Oxyhemoglobin, Arterial 94.7 94.0 - 97.0 % 06/14/2024 4:52 PM [facility] Carboxyhemoglobin , Arterial 0.6 % 06/14/2024 4:52 PM [facility] Comment: Nonsmokers: 0.5-1.5% COHB ?? Smokers: Variable ??but usually less than 10% ?? Toxic: 20-30% COHB ?? Lethal: Greater than 60% COHB Methemoglobin, Arterial 0.0 <=1.5 % 06/14/2024 4:52 PM [facility] Sodium, Arterial 138 135 - 145 mmol/L 06/14/2024 4:52 PM [facility] Potassium, Arterial 4.1 3.5 - 5.0 mmol/L 06/14/2024 4:52 PM [facility] Chloride, Arterial 106 98 - 107 mmol/L 06/14/2024 4:52 PM [facility] Lactate, Arterial 1.3 0.5 - 2.2 mmol/L 06/14/2024 4:[address] [facility] Fraction of Inspired Oxygen 40 % 06/14/2024 4:[address] [facility] PF Ratio 213 Ratio 06/14/2024 4:[address] [facility] Comment:PF ratio calculated using the non-temperature corrected pO2 result. IONIZED CALCIUM, ARTERIAL 1.16 1.15 - 1.33 mmol/L 06/14/2024 4:[address] [facility] Glucose, Arterial 192 65 - 199 mg/dL 06/14/2024 4:[address] [facility] Comment:Glucose Concentratio n >=200 mg/dL plus symptoms is consistent with Diabetes Mellitus. Blood ARTERIAL BLOOD / Unknown 06/14/2024 4:51 PM EST 06/14/2024 4:52 PM EST Bobby Loja MD POINT OF CARE TEST O NIKA Performing Organization Address City/[facility]/[place] [address] * POC, GLUCOSE (06/14/2024 4:00 PM EST) Glucometer, POC 184 65 - 199 mg/dL 06/14/2024 4:[address] [facility] Comment:Supplemental ranges: <140 mg/dL before meals <180 mg/dL all other times of the day. Blood CAPILLARY BLOOD / Unknown 06/14/2024 4:00 PM EST 06/14/2024 4:01 PM EST Bobby Loja MD [place] [address] * XR Chest One View (06/14/2024 3:05 PM EST) WORKSTATION ID [id number] RAD Anatomical Region Laterality Modality Chest N/A [...] have questions please contact the health healthcare insurance sales agent that requested your imaging first. ? Electronically signed by: Stuart Aponte MD, [facility] ??([phone]), at 06/14/2024 4:07 PM Narrative 06/14/2024 4:07 [...] who have questions please contactthe health healthcare insurance sales agent that requested your imaging first. Electronically signed by: Stuart Aponte MD, [facility]([phone]), at 06/14/2024 4:07 PM Bobby Loja MD IMG DX ORDERABLES * (ABNORMAL) Blood Gas, Arterial POC (06/14/2024 2:52 PM EST) pH, Arterial 7.28(LLL) 7.35 - 7.45 06/14/2024 2:53 PM [facility] PCO2, Arterial 50(H) 35 - 45 mmHg 06/14/2024 2:53 PM [facility] PO2, Arterial 510(H) 85 - 104 mmHg 06/14/2024 2:53 PM [facility] Bicarbonate, Arterial 22.8 20.0 - 26.0 mmol/L 06/14/2024 2:53 PM [facility] Base Excess, Arterial -4.0(L) -3.0 - 3.0 mmol/L 06/14/2024 2:53 PM [facility] Hemoglobin, Arterial 13.8 13.7 - 16.5 g/dL 06/14/2024 2:53 PM [facility] Oxyhemoglobin, Arterial 99.3(H) 94.0 - 97.0 % 06/14/2024 2:53 PM [facility] Carboxyhemoglobin , Arterial 0.6 % 06/14/2024 2:53 PM [facility] Comment: Nonsmokers: 0.5-1.5% COHB ?? Smokers: Variable ??but usually less than 10% ?? Toxic: 20-30% COHB ?? Lethal: Greater than 60% COHB Methemoglobin, Arterial 0.1 <=1.5 % 06/14/2024 2:53 PM [facility] Sodium, Arterial 138 135 - 145 mmol/L 06/14/2024 2:53 PM [facility] Potassium, Arterial 4.2 3.5 - 5.0 mmol/L 06/14/2024 2:53 PM [facility] Chloride, Arterial 106 98 - 107 mmol/L 06/14/2024 2:53 PM [facility] Lactate, Arterial 1.1 0.5 - 2.2 mmol/L 06/14/2024 2:53 PM [facility] Fraction of Inspired Oxygen 100 % 06/14/2024 2:53 PM [facility] PF Ratio 510 Ratio 06/14/2024 2:53 PM [facility] Comment:PF ratio calculated using the non-temperature corrected pO2 result. IONIZED CALCIUM, ARTERIAL 1.15 1.15 - 1.33 mmol/L 06/14/2024 2:53 PM [facility] Glucose, Arterial 169 65 - 199 mg/dL 06/14/2024 2:53 PM [facility] Comment:Glucose Concentratio n >=200 mg/dL plus symptoms is consistent with Diabetes Mellitus. Blood ARTERIAL BLOOD / Unknown 06/14/2024 2:52 PM EST 06/14/2024 2:53 PM EST Bobby Loja MD POINT OF CARE TEST O RDERAPIETER [facility] [place] [address] * EKG 12 Lead (06/14/2024 2:46 PM EST) Ventricular rate 80 BPM MUSE SYSTEM Atrial Rate 80 BPM MUSE SYSTEM P-R Interval 120 ms MUSE SYSTEM QRS Duration 108 ms MUSE SYSTEM Q-T Interval 454 ms MUSE SYSTEM QTC Calculated (Bezet) 523 ms MUSE SYSTEM Calculated P [place] 70 degrees MUSE SYSTEM Calculated R [place] 56 degrees MUSE SYSTEM Calculated T [place] 50 degrees MUSE SYSTEM INTERPRETATION AV dual-paced rhythm Abnormal ECG When compared with ECG of 03-JUN-2024 01:45, Vent. rate has increased BY ??17 BPM Confirmed by MD Marisol, Shaheen ([id number]) on 06/15/2024 1:57:23 PM MUSE SYSTEM 06/14/2024 2:46 PM EST 06/15/2024 1:57 PM EST Bobby Loja MD ECG ORDERABLES MUSE SYSTEM * Prepare RBC (06/14/2024 2:27 PM EST) Status Information Returned [facility] Product Identification RBC [facility] Unit Number [id number] [facility] Product Code [id number] [facility] Unit Blood Type OPOS [facility] Specimen Expiration Date [facility] Volulme 350 [facility] Issue Date / Time [facility] Status [facility] Returned [facility] Product Identification RBC [facility] Unit Number [id number] [facility] Product Code [id number] [facility] Unit Blood Type OPOS [facility] Specimen Expiration Date [facility] Volulme 350 [facility] Issue Date / Time [facility] Blood 06/14/2024 6:2 5 AM EST Haja Byrnes MD BLOOD BANK PRODUCT O RDERABLES [facility] [place] [address] * (ABNORMAL) Cooximetry, POC (06/14/2024 1:52 PM EST) pO2, Coox 58 mmHg 06/14/2024 1:[address] [facility] Hemoglobin, Coox 12.6(L) 13.7 - 16.5 g/dL 06/14/2024 1:[address] [facility] Oxyhemoglobin, Coox 85.5 % 06/14/2024 1:[address] [facility] Carboxyhemoglo bin, Coox 0.3 % 06/14/2024 1:[address] [facility] Comment: Nonsmokers: 0.5-1.5% COHB ?? Smokers: Variable ??but usually less than 10% ?? Toxic: 20-30% COHB ?? Lethal: Greater than 60% COHB Methemoglobin, Coox 0.6 <=1.5 % 06/14/2024 1:[address] [facility] Blood (Mixed Venous) 06/14/2024 1:52 PM EST 06/14/2024 1:55 PM EST Haja Byrnes MD POINT OF CARE TEST O RDERABLES [facility] [place] [address] * (ABNORMAL) Blood Gas, Arterial POC (06/14/2024 12:47 PM EST) pH, Arterial 7.33(L) 7.35 - 7.45 06/14/2024 12:[address] [facility] PCO2, Arterial 46(H) 35 - 45 mmHg 06/14/2024 12:[address] [facility] PO2, Arterial 358(H) 85 - 104 mmHg 06/14/2024 12:[address] [facility] Bicarbonate, Arterial 23.8 20.0 - 26.0 mmol/L 06/14/2024 12:48 PM [facility] Base Excess, Arterial -2.1 -3.0 - 3.0 mmol/L 06/14/2024 12:48 PM [facility] Hemoglobin, Arterial 11.7(L) 13.7 - 16.5 g/dL 06/14/2024 12:48 PM [facility] Oxyhemoglobin, Arterial 98.7(H) 94.0 - 97.0 % 06/14/2024 12:48 PM [facility] Carboxyhemoglobin , Arterial 0.3 % 06/14/2024 12:48 PM [facility] Comment: Nonsmokers: 0.5-1.5% COHB ?? Smokers: Variable ??but usually less than 10% ?? Toxic: 20-30% COHB ?? Lethal: Greater than 60% COHB Methemoglobin, Arterial 0.5 <=1.5 % 06/14/2024 12:48 PM [facility] Sodium, Arterial 135 135 - 145 mmol/L 06/14/2024 12:48 PM [facility] Potassium, Arterial 5.0 3.5 - 5.0 mmol/L 06/14/2024 12:48 PM [facility] Chloride, Arterial 106 98 - 107 mmol/L 06/14/2024 12:48 PM [facility] Lactate, Arterial 1.4 0.5 - 2.2 mmol/L 06/14/2024 12:48 PM [facility] IONIZED CALCIUM, ARTERIAL 1.09(L) 1.15 - 1.33 mmol/L 06/14/2024 12:48 PM [facility] Glucose, Arterial 157 65 - 199 mg/dL 06/14/2024 12:48 PM [facility] Comment:Glucose Concentratio n >=200 mg/dL plus symptoms is consistent with Diabetes Mellitus. Blood ARTERIAL BLOOD / Unknown 06/14/2024 12:47 PM EST 06/14/2024 12:48 PM EST Haja Byrnes MD POINT OF CARE TEST O RDERAPIETER [facility] [place] [address] * (ABNORMAL) Cooximetry, POC (06/14/2024 12:42 PM EST) pO2, Coox 71 mmHg 06/14/2024 12:[address] [facility] Hemoglobin, Coox 11.6(L) 13.7 - 16.5 g/dL 06/14/2024 12:[address] [facility] Oxyhemoglobin, Coox 91.5 % 06/14/2024 12:[address] [facility] Carboxyhemoglo bin, Coox 0.3 % 06/14/2024 12:[address] [facility] Comment: Nonsmokers: 0.5-1.5% COHB ?? Smokers: Variable ??but usually less than 10% ?? Toxic: 20-30% COHB ?? Lethal: Greater than 60% COHB Methemoglobin, Coox 0.4 <=1.5 % 06/14/2024 12:[address] [facility] Blood (Mixed Venous) 06/14/2024 12:42 PM EST 06/14/2024 12:45 PM EST Haja Byrnes MD POINT OF CARE TEST O NIKA [facility] [place] [address] * (ABNORMAL) Platelet count (06/14/2024 12:30 PM EST) Platelet 73(L) 145 - 357 x10(3)/mcL 06/14/2024 12:[address] [facility] Blood ARTERIAL BLOOD / Unknown 06/14/2024 12:30 PM EST Comment:Pre-op diagnosis: CAD Bobby Loja MD HEMATOLOGY ORDERABLE S Performing Organization Address [facility] Co de Phone Number [facility] [place] [address] * (ABNORMAL) Hemoglobin and Hematocrit, blood (06/14/2024 12:30 PM EST) Hemoglobin 10.9(L) 13.7 - 16.5 g/dL 06/14/2024 12:[address] [facility] Hematocrit 33.5(L) 40.5 - 48.5 % 06/14/2024 12:[address] [facility] Comment:This result has been called to Danielle López by Satya Page on 06/14/2024 12:53:56, and has been read back. Blood ARTERIAL BLOOD / Unknown 06/14/2024 12:30 PM EST 06/14/2024 12:42 PM EST Comment:Pre-op diagnosis: CAD Bobby Loja MD HEMATOLOGY ORDERABLE S Performing Organization Address [facility]/ZIP Co de Phone Number [facility] [place] [address] * APTT (06/14/2024 12:30 PM EST) Partial Thromboplastin Time 31 25 - 37 sec 06/14/2024 12:[address] [facility] Comment: The PTT is NOT appropriate for heparin monitoring. Use the Anti-Xa level for heparin monitoring (HEP UFH) or LMWH monitoring (HEP LMW). A PTT less than 37 seconds generally indicates adequate hemostasis. Blood ARTERIAL BLOOD / Unknown 06/14/2024 12:30 PM EST 06/14/2024 12:42 PM EST Comment:Pre-op diagnosis: CAD Bobby Loja MD HEMATOLOGY ORDERABLE S Performing Organization Address City/[facility]/ZIP Co de Phone Number [facility] [place] [address] * (ABNORMAL) Prothrombin Time (06/14/2024 12:30 PM EST) Prothrombin Time 16.8(H) 9.4 - 12.5 sec 06/14/2024 12:[address] [facility] International Normalization Ratio 1.5 <=4.9 06/14/2024 12:[address] [facility] Comment: An INR < 2.0 [...] ORDERABLE S Performing Organization Address City/[facility]/ZIP Co de Phone Number [facility] [place] [address] * Fibrinogen (06/14/2024 12:30 PM EST) Fibrinogen 211 200 - 393 mg/dL 06/14/2024 12:[address] [facility] Comment: A fibrinogen level >100 mg/dL is adequate for hemostasis in most patients without underlying bleeding disorders. Blood ARTERIAL BLOOD / Unknown 06/14/2024 12:30 PM EST 06/14/2024 12:42 PM EST Comment:Pre-op diagnosis: CAD Bobby Loja MD HEMATOLOGY ORDERABLE S [facility] [place] [address] * (ABNORMAL) Blood Gas, Arterial POC (06/14/2024 12:15 PM EST) pH, Arterial 7.38 7.35 - 7.45 06/14/2024 12:[address] [facility] PCO2, Arterial 40 35 - 45 mmHg 06/14/2024 12:16 PM [facility] Bicarbonate, Arterial 22.9 20.0 - 26.0 mmol/L 06/14/2024 12:16 PM [facility] Base Excess, Arterial -2.3 -3.0 - 3.0 mmol/L 06/14/2024 12:16 PM [facility] Hemoglobin, Arterial 11.4(L) 13.7 - 16.5 g/dL 06/14/2024 12:16 PM [facility] Oxyhemoglobin, Arterial 98.8(H) 94.0 - 97.0 % 06/14/2024 12:16 PM [facility] Carboxyhemoglobin , Arterial 0.3 % 06/14/2024 12:16 PM [facility] Comment: Nonsmokers: 0.5-1.5% COHB ?? Smokers: Variable ??but usually less than 10% ?? Toxic: 20-30% COHB ?? Lethal: Greater than 60% COHB Methemoglobin, Arterial 0.6 <=1.5 % 06/14/2024 12:16 PM [facility] Sodium, Arterial 134(L) 135 - 145 mmol/L 06/14/2024 12:16 PM [facility] Potassium, Arterial 5.4(H) 3.5 - 5.0 mmol/L 06/14/2024 12:16 PM [facility] Chloride, Arterial 105 98 - 107 mmol/L 06/14/2024 12:16 PM [facility] Lactate, Arterial 1.3 0.5 - 2.2 mmol/L 06/14/2024 12:16 PM [facility] IONIZED CALCIUM, ARTERIAL 1.08(L) 1.15 - 1.33 mmol/L 06/14/2024 12:16 PM [facility] Glucose, Arterial 161 65 - 199 mg/dL 06/14/2024 12:16 PM [facility] Comment:Glucose Concentratio n >=200 mg/dL plus symptoms is consistent with Diabetes Mellitus. Blood ARTERIAL BLOOD / Unknown 06/14/2024 12:15 PM EST 06/14/2024 12:16 PM EST Haja Byrnes MD POINT OF CARE TEST O RDERABLES [facility] [place] [address] * (ABNORMAL) Blood Gas, Arterial POC (06/14/2024 11:51 AM EST) pH, Arterial 7.40 7.35 - 7.45 06/14/2024 11:52 AM [facility] PCO2, Arterial 41 35 - 45 mmHg 06/14/2024 11:52 AM [facility] PO2, Arterial 332(H) 85 - 104 mmHg 06/14/2024 11:52 AM [facility] Bicarbonate, Arterial 24.7 20.0 - 26.0 mmol/L 06/14/2024 11:52 AM [facility] Base Excess, Arterial -0.1 -3.0 - 3.0 mmol/L 06/14/2024 11:52 AM [facility] Hemoglobin, Arterial 11.1(L) 13.7 - 16.5 g/dL 06/14/2024 11:52 AM [facility] Oxyhemoglobin, Arterial 98.7(H) 94.0 - 97.0 % 06/14/2024 11:52 AM [facility] Carboxyhemoglobin , Arterial 0.3 % 06/14/2024 11:52 AM [facility] Comment: Nonsmokers: 0.5-1.5% COHB ?? Smokers: Variable ??but usually less than 10% ?? Toxic: 20-30% COHB ?? Lethal: Greater than 60% COHB Methemoglobin, Arterial 0.4 <=1.5 % 06/14/2024 11:52 AM [facility] Sodium, Arterial 135 135 - 145 mmol/L 06/14/2024 11:52 AM [facility] Potassium, Arterial 5.7(H) 3.5 - 5.0 mmol/L 06/14/2024 11:52 AM [facility] Chloride, Arterial 105 98 - 107 mmol/L 06/14/2024 11:52 AM [facility] Lactate, Arterial 1.2 0.5 - 2.2 mmol/L 06/14/2024 11:52 AM [facility] IONIZED CALCIUM, ARTERIAL 1.10(L) 1.15 - 1.33 mmol/L 06/14/2024 11:52 AM [facility] Glucose, Arterial 148 65 - 199 mg/dL 06/14/2024 11:52 AM [facility] Comment:Glucose Concentratio n >=200 mg/dL plus symptoms is consistent with Diabetes Mellitus. Blood ARTERIAL BLOOD / Unknown 06/14/2024 11:51 AM EST 06/14/2024 11:52 AM EST Haja Byrnes MD POINT OF CARE TEST O RDERABLES [facility] [place] [address] * (ABNORMAL) Blood Gas, Arterial POC (06/14/2024 11:27 AM EST) pH, Arterial 7.38 7.35 - 7.45 06/14/2024 11:28 AM [facility] PCO2, Arterial 37 35 - 45 mmHg 06/14/2024 11:28 AM [facility] PO2, Arterial 348(H) 85 - 104 mmHg 06/14/2024 11:28 AM [facility] Bicarbonate, Arterial 21.1 20.0 - 26.0 mmol/L 06/14/2024 11:28 AM [facility] Base Excess, Arterial -4.1(L) -3.0 - 3.0 mmol/L 06/14/2024 11:28 AM [facility] Hemoglobin, Arterial 11.0(L) 13.7 - 16.5 g/dL 06/14/2024 11:28 AM [facility] Oxyhemoglobin, Arterial 98.7(H) 94.0 - 97.0 % 06/14/2024 11:28 AM [facility] Carboxyhemoglobin , Arterial 0.3 % 06/14/2024 11:28 AM [facility] Comment: Nonsmokers: 0.5-1.5% COHB ?? Smokers: Variable ??but usually less than 10% ?? Toxic: 20-30% COHB ?? Lethal: Greater than 60% COHB Methemoglobin, Arterial 0.4 <=1.5 % 06/14/2024 11:28 AM [facility] Sodium, Arterial 132(L) 135 - 145 mmol/L 06/14/2024 11:28 AM [facility] Potassium, Arterial 5.8(H) 3.5 - 5.0 mmol/L 06/14/2024 11:28 AM [facility] Chloride, Arterial 105 98 - 107 mmol/L 06/14/2024 11:28 AM [facility] Lactate, Arterial 1.1 0.5 - 2.2 mmol/L 06/14/2024 11:28 AM [facility] IONIZED CALCIUM, ARTERIAL 1.03(L) 1.15 - 1.33 mmol/L 06/14/2024 11:28 AM [facility] Glucose, Arterial 147 65 - 199 mg/dL 06/14/2024 11:28 AM [facility] Comment:Glucose Concentratio n >=200 mg/dL plus symptoms is consistent with Diabetes Mellitus. Blood ARTERIAL BLOOD / Unknown 06/14/2024 11:27 AM EST 06/14/2024 11:28 AM EST Haja Byrnes MD POINT OF CARE TEST O RDERABLES [facility] [place] [address] * (ABNORMAL) Scan, Peripheral Blood (06/14/2024 11:23 AM EST) RBC Morphology Abnormal 06/14/2024 11:[address] [facility] Platelet Estimate Decreased(A) Normal 06/14/2024 11:[address] [facility] Aretha cells 1-5 /HPF 06/14/2024 11:[address] [facility] Blood ARTERIAL BLOOD / Unknown 06/14/2024 11:23 AM EST 06/14/2024 11:27 AM EST Bobby Loja MD HEMATOLOGY ORDERABLE S [facility] [place] [address] * (ABNORMAL) Platelet count (06/14/2024 11:23 AM EST) Pathologist [facility] Platelet 86(L) 145 - 357 x10(3)/mcL 06/14/2024 11:[address] [facility] Blood ARTERIAL BLOOD / Unknown 06/14/2024 11:23 AM EST Comment:Pre-op diagnosis: CAD Bobby Loja MD HEMATOLOGY ORDERABLE S [facility] [place] [address] * (ABNORMAL) Hemoglobin and Hematocrit, blood (06/14/2024 11:23 AM EST) Hemoglobin 9.8(L) 13.7 - 16.5 g/dL 06/14/2024 11:[address] [facility] Comment:This result has been called to Danielle López by Satya Page on 06/14/2024 11:58:33. Hematocrit 30.5(L) 40.5 - 48.5 % 06/14/2024 11:[address] [facility] Comment:This result has been called to Danielle López by Satya Page on 06/14/2024 11:58:40, and has been read back. Blood ARTERIAL BLOOD / Unknown 06/14/2024 11:23 AM EST 06/14/2024 11:27 AM EST Comment:Pre-op diagnosis: CAD Bobby Loja MD HEMATOLOGY ORDERABLE S [facility] [place] [address] * (ABNORMAL) Blood Gas, Arterial POC (06/14/2024 10:58 AM EST) pH, Arterial 7.38 7.35 - 7.45 06/14/2024 10:59 AM [facility] PCO2, Arterial 43 35 - 45 mmHg 06/14/2024 10:59 AM [facility] PO2, Arterial 401(H) 85 - 104 mmHg 06/14/2024 10:59 AM [facility] Bicarbonate, Arterial 24.8 20.0 - 26.0 mmol/L 06/14/2024 10:59 AM [facility] Base Excess, Arterial -0.5 -3.0 - 3.0 mmol/L 06/14/2024 10:59 AM [facility] Hemoglobin, Arterial 11.9(L) 13.7 - 16.5 g/dL 06/14/2024 10:59 AM [facility] Oxyhemoglobin, Arterial 99.0(H) 94.0 - 97.0 % 06/14/2024 10:59 AM [facility] Carboxyhemoglobin , Arterial 0.3 % 06/14/2024 10:59 AM [facility] Comment: Nonsmokers: 0.5-1.5% COHB ?? Smokers: Variable ??but usually less than 10% ?? Toxic: 20-30% COHB ?? Lethal: Greater than 60% COHB Methemoglobin, Arterial 0.3 <=1.5 % 06/14/2024 10:59 AM [facility] Sodium, Arterial 128(L) 135 - 145 mmol/L 06/14/2024 10:59 AM [facility] Potassium, Arterial 6.6(HHH) 3.5 - 5.0 mmol/L 06/14/2024 10:59 AM [facility] Chloride, Arterial 99 98 - 107 mmol/L 06/14/2024 10:59 AM [facility] Lactate, Arterial 1.3 0.5 - 2.2 mmol/L 06/14/2024 10:59 AM [facility] IONIZED CALCIUM, ARTERIAL 1.00(L) 1.15 - 1.33 mmol/L 06/14/2024 10:59 AM [facility] Glucose, Arterial 155 65 - 199 mg/dL 06/14/2024 10:59 AM [facility] Comment:Glucose Concentratio n >=200 mg/dL plus symptoms is consistent with Diabetes Mellitus. Blood ARTERIAL BLOOD / Unknown 06/14/2024 10:58 AM EST 06/14/2024 10:59 AM EST Haja Byrnes MD POINT OF CARE TEST O RDERABLES [facility] [place] [address] * (ABNORMAL) Blood Gas, Arterial POC (06/14/2024 10:26 AM EST) pH, Arterial 7.29(LLL) 7.35 - 7.45 06/14/2024 10:27 AM [facility] PCO2, Arterial 43 35 - 45 mmHg 06/14/2024 10:27 AM [facility] PO2, Arterial 369(H) 85 - 104 mmHg 06/14/2024 10:27 AM [facility] Bicarbonate, Arterial 19.9(L) 20.0 - 26.0 mmol/L 06/14/2024 10:27 AM [facility] Base Excess, Arterial -6.7(L) -3.0 - 3.0 mmol/L 06/14/2024 10:27 AM [facility] Hemoglobin, Arterial 12.6(L) 13.7 - 16.5 g/dL 06/14/2024 10:27 AM [facility] Oxyhemoglobin, Arterial 99.1(H) 94.0 - 97.0 % 06/14/2024 10:27 AM [facility] Carboxyhemoglobin , Arterial 0.1 % 06/14/2024 10:27 AM [facility] Comment: Nonsmokers: 0.5-1.5% COHB ?? Smokers: Variable ??but usually less than 10% ?? Toxic: 20-30% COHB ?? Lethal: Greater than 60% COHB Methemoglobin, Arterial 0.4 <=1.5 % 06/14/2024 10:27 AM [facility] Sodium, Arterial 129(L) 135 - 145 mmol/L 06/14/2024 10:27 AM [facility] Potassium, Arterial 5.0 3.5 - 5.0 mmol/L 06/14/2024 10:27 AM [facility] Chloride, Arterial 99 98 - 107 mmol/L 06/14/2024 10:27 AM [facility] Lactate, Arterial 0.9 0.5 - 2.2 mmol/L 06/14/2024 10:27 AM [facility] IONIZED CALCIUM, ARTERIAL 1.05(L) 1.15 - 1.33 mmol/L 06/14/2024 10:27 AM [facility] Glucose, Arterial 149 65 - 199 mg/dL 06/14/2024 10:27 AM [facility] Comment:Glucose Concentratio n >=200 mg/dL plus symptoms is consistent with Diabetes Mellitus. Blood ARTERIAL BLOOD / Unknown 06/14/2024 10:26 AM EST 06/14/2024 10:27 AM EST Haja Byrnes MD POINT OF CARE TEST O RDERABLES [facility] [place] [address] * (ABNORMAL) Blood Gas, Arterial POC (06/14/2024 10:25 AM [facility]) pH, Arterial 7.26(LLL) 7.35 - 7.45 06/14/2024 10:26 AM [facility] PCO2, Arterial 48(H) 35 - 45 mmHg 06/14/2024 10:26 AM [facility] Bicarbonate, Arterial 21.2 20.0 - 26.0 mmol/L 06/14/2024 10:26 AM [facility] Base Excess, Arterial -5.8(L) -3.0 - 3.0 mmol/L 06/14/2024 10:26 AM [facility] Hemoglobin, Arterial 12.5(L) 13.7 - 16.5 g/dL 06/14/2024 10:26 AM [facility] Oxyhemoglobin, Arterial 82.3(L) 94.0 - 97.0 % 06/14/2024 10:26 AM [facility] Carboxyhemoglobin , Arterial 0.5 % 06/14/2024 10:26 AM [facility] Comment: Nonsmokers: 0.5-1.5% COHB ?? Smokers: Variable ??but usually less than 10% ?? Toxic: 20-30% COHB ?? Lethal: Greater than 60% COHB Methemoglobin, Arterial 0.5 <=1.5 % 06/14/2024 10:26 AM [facility] Sodium, Arterial 131(L) 135 - 145 mmol/L 06/14/2024 10:26 AM [facility] Potassium, Arterial 4.6 3.5 - 5.0 mmol/L 06/14/2024 10:26 AM [facility] Chloride, Arterial 103 98 - 107 mmol/L 06/14/2024 10:26 AM [facility] Lactate, Arterial 0.8 0.5 - 2.2 mmol/L 06/14/2024 10:26 AM [facility] IONIZED CALCIUM, ARTERIAL 0.91(LLL) 1.15 - 1.33 mmol/L 06/14/2024 10:[address] [facility] Glucose, Arterial 148 65 - 199 mg/dL 06/14/2024 10:[address] [facility] Comment:Glucose Concentratio n >=200 mg/dL plus symptoms is consistent with Diabetes Mellitus. Blood ARTERIAL BLOOD / Unknown 06/14/2024 10:25 AM EST 06/14/2024 10:26 AM EST Haja Byrnes MD POINT OF CARE TEST O RDERABLES [facility] [place] [address] * Surgical Pathology (06/14/2024 9:53 AM EST) Case Report Surgical Pathology Report ? Case: [id number] ? Authorizing Provider: ??Bobby Loja MD ? Collected: ? 06/14/2024 0953 ? Ordering Location: ? Main Operating Room [facility] ?? Received: ?06/14/2024 1413 ? [facility] ? Hospital ? Pathologist: ? Sandra Salas MD ? Specimens: ?? A) - Soft Tissue Mass, mediastinal mass ? B) - Heart, Atrial Appendage, Left ? 06/18/2024 10:18 AM [facility] Final Diagnosis A. Soft Tissue Mass, Mediastinal Mass, Excision: - Atrophic thymic tissue B. Heart, Atrial Appendage, Left, Excision: - Mild myocyte hypertrophy 06/18/2024 10:18 AM [facility] Clinical Information A. Soft Tissue Mass, mediastinal mass Soft tissue mass Mediastinal mass B. Heart, Atrial Appendage, Left, *Other - as specified in Clinical Information MARIALUISA 06/18/2024 10:18 AM [facility] Gross Description A. Soft Tissue Mass, mediastinal mass. A - Labeled/Fixative : Mediastinal mass, fresh. Quantity/Size: Single, 7.2 x 5.3 x 1.2 cm. Tissue Description: Unoriented, intact portion of soft, rodriguez-yellow, lobulated tissue. The cut surface is homogenously pale-rodriguez, yellow and lobulated. No lesions or nodules are identified. Inking: External surface inked black Sections/Process ing: Motor Grader Operator sections in 4 cassettes labeled A1-A4. cmk B. Heart, Atrial Appendage, Left, . B - Labeled/Fixative : Heart, atrial appendage, left, fresh. Quantity/Size: Single, 3.3 x 1.5 x 0.8 cm. Tissue Description: Portion of heart tissue consisting of rodriguez-white, semitranslucent, smooth endocardium with rodriguez-brown muscular myocardium and thin translucent epicardium with adherent adipose tissue. No areas of discoloration identified. Sections/Process ing: Motor Grader Operator sections in 1 cassette labeled B1. cmk 06/18/2024 10:[address] [facility] Result Note Routine 06/18/2024 10:18 AM [facility] Tissue SOFT TISSUE MASS / Unknown 06/14/2024 9:53 AM EST 06/14/2024 2:13 PM EST Comment:Mediastinal mass Tissue specimen (specimen) LEFT ATRIAL APPENDAGE ABSENT / Unknown 06/14/2024 10:54 AM EST 06/14/2024 2:13 PM EST Comment:MARIALUISA Bobby Loja MD PATHOLOGY/CYTOLOGY O RDERABLES [facility] [place] [address] * Cooximetry, POC (06/14/2024 9:00 AM EST) pO2, Coox 57 mmHg 06/14/2024 9:04 AM [facility] PO2 Corrected, COOX 50 mmHg 06/14/2024 9:04 AM [facility] Hemoglobin, Coox 14.3 13.7 - 16.5 g/dL 06/14/2024 9:04 AM [facility] Oxyhemoglobin, Coox 86.2 % 06/14/2024 9:04 AM [facility] Carboxyhemoglobi n, Coox 0.3 % 06/14/2024 9:04 AM [facility] Comment: Nonsmokers: 0.5-1.5% COHB ?? Smokers: Variable ??but usually less than 10% ?? Toxic: 20-30% COHB ?? Lethal: Greater than 60% COHB Methemoglobin, Coox 0.3 <=1.5 % 06/14/2024 9:04 AM [facility] Temperature Coox 35.2 C 06/14/20 9:04 AM [facility] Blood (Mixed Venous) 06/14/2024 9:00 AM EST 06/14/2024 9:04 AM EST Haja Byrnes MD POINT OF CARE TEST O [facility]DER[facility] [place] [address] * (ABNORMAL) Blood Gas, Arterial POC (06/14/2024 8:39 AM EST) pH, Arterial 7.37 7.35 - 7.45 06/14/2024 8:40 AM [facility] PCO2, Arterial 42 35 - 45 mmHg 06/14/2024 8:40 AM [facility] PO2, Arterial 341(H) 85 - 104 mmHg 06/14/2024 8:40 AM [facility] Bicarbonate, Arterial 23.7 20.0 - 26.0 mmol/L 06/14/2024 8:40 AM [facility] Base Excess, Arterial -1.6 -3.0 - 3.0 mmol/L 06/14/2024 8:40 AM [facility] Hemoglobin, Arterial 15.2 13.7 - 16.5 g/dL 06/14/2024 8:40 AM [facility] Oxyhemoglobin, Arterial 99.2(H) 94.0 - 97.0 % 06/14/2024 8:40 AM [facility] Carboxyhemoglobin , Arterial 0.1 % 06/14/2024 8:40 AM [facility] Comment: Nonsmokers: 0.5-1.5% COHB ?? Smokers: Variable ??but usually less than 10% ?? Toxic: 20-30% COHB ?? Lethal: Greater than 60% COHB Methemoglobin, Arterial 0.3 <=1.5 % 06/14/2024 8:[address] [facility] Sodium, Arterial 136 135 - 145 mmol/L 06/14/2024 8:40 AM [facility] Potassium, Arterial 4.2 3.5 - 5.0 mmol/L 06/14/2024 8:[address] [facility] Chloride, Arterial 102 98 - 107 mmol/L 06/14/2024 8:40 AM [facility] Lactate, Arterial 0.9 0.5 - 2.2 mmol/L 06/14/2024 8:40 AM [facility] IONIZED CALCIUM, ARTERIAL 1.17 1.15 - 1.33 mmol/L 06/14/2024 8:40 AM [facility] Glucose, Arterial 121 65 - 199 mg/dL 06/14/2024 8:40 AM [facility] Comment:Glucose Concentratio n >=200 mg/dL plus symptoms is consistent with Diabetes Mellitus. Blood ARTERIAL BLOOD / Unknown 06/14/2024 8:39 AM EST 06/14/2024 8:40 AM EST Haja Byrnes MD POINT OF CARE TEST O RDERABLES Performing Organization Address City/State/[facility] Co de Phone Number [facility] [place] [address] * Transesophageal Echo/OR (06/14/2024 7:20 AM EST) Anatomical Region Laterality Modality Cardiac Other 06/14/2024 7:20 AM EST Narrative 06/14/2024 4:36 PM EST Version: 2 Study ID: [id number] [id number] ?OR Transesophageal Echo Report Name: GEORGE MEHTA [...] of this mass after consultation with other outplacement consultant experts and the decision was made [...] MD - 06/14/2024 Version: 2 Study ID: [id number] [address] [place] [address] ORTransesophageal Echo Report Name: GEORGE MEHTA Study [...] of this mass after consultation with other outplacement consultant experts and thedecision was made by [...] - 199 mg/dL 06/14/2024 7:[address] [facility] Comment:Supplemental ranges: <140 mg/dL before meals <180 mg/dL all other times of the day. Blood CAPILLARY BLOOD / Unknown 06/14/2024 7:11 AM EST 06/14/2024 7:12 AM EST Haja Byrnes MD POINT OF CARE TEST O RDERABLES [facility] [place] [address] * POC, GLUCOSE (06/14/2024 4:30 AM EST) Glucometer, POC 85 65 - 199 mg/dL 06/14/2024 4:[address] [facility] Comment:Supplemental ranges: <140 mg/dL before meals <180 mg/dL all other times of the day. Blood CAPILLARY BLOOD / Unknown 06/14/2024 4:30 AM EST 06/14/2024 4:30 AM EST Haja Byrnes MD POINT OF CARE TEST O RDERABLES Performing Organization Address [facility] Co de Phone Number [facility] [place] [address] * (ABNORMAL) Heparin (unfractionated) Level (06/14/2024 12:12 AM EST) UF Heparin 1.02(HHH) IU/mL 06/14/2024 12:[address] [facility] Comment: Heparin (anti-Xa) levels should [...] ORDERABLE S Performing Organization Address City/[facility]/ZIP Co de Phone Number [facility] [place] [address] * (ABNORMAL) CBC (with Diff) (06/14/2024 12:12 AM EST) White Blood Cell 10.51(H) 4.00 - 9.50 x10(3)/mc L 06/14/2024 12:38 AM [facility] Red Blood Cell 4.99 4.58 - 5.54 x10(6)/mc L 06/14/2024 12:38 AM [facility] Hemoglobin 14.9 13.7 - 16.5 g/dL 06/14/2024 12:38 AM [facility] Hematocrit 45.9 40.5 - 48.5 % 06/14/2024 12:38 AM [facility] Mean Cell Volume 92.0 82.9 - 93.1 fL 06/14/2024 12:38 AM [facility] Mean Cell Hemoglobin 29.9 27.5 - 32.1 pg 06/14/2024 12:38 AM [facility] Mean Cell Hemoglobin Concentration 32.5 32.0 - 35.7 g/dL 06/14/2024 12:38 AM [facility] Platelet 162 145 - 357 x10(3)/mc L 06/14/2024 12:38 AM [facility] Mean Platelet Volume 10.1 7.6 - 12.9 fL 06/14/2024 12:38 AM [facility] RDW Standard Deviation 46.9(H) 36.0 - 45.0 fL 06/14/2024 12:38 AM [facility] RDW coefficient of variation 13.8 11.4 - 13.8 % 06/14/2024 12:38 AM [facility] NRBC% auto 0.0 % 06/14/2024 12:38 AM [facility] NRBC Absolute <0.01 <0.01 x10(3)/mc L 06/14/2024 12:38 AM [facility] Neutrophil % 56.7 % 06/14/2024 12:38 AM [facility] Neutrophil Absolute (ANC) - Automated 5.96 1.70 - 6.10 x10(3)/mc L 06/14/2024 12:38 AM [facility] Lymph % 26.8 % 06/14/2024 12:38 AM [facility] Lymph Absolute 2.82 0.90 - 3.20 x10(3)/mc L 06/14/2024 12:38 AM [facility] Monocyte % 11.2 % 06/14/2024 12:38 AM [facility] Monocyte Absolute 1.18(H) 0.30 - 0.90 x10(3)/mc L 06/14/2024 12:38 AM [facility] Eos % 3.9 % 06/14/2024 12:38 AM [facility] Eos Absolute 0.41(H) 0.00 - 0.40 x10(3)/mc L 06/14/2024 12:38 AM [facility] Basophil % 0.8 % 06/14/2024 12:38 AM [facility] Baso Absolute 0.08 0.00 - 0.10 x10(3)/mc L 06/14/2024 12:38 AM [facility] Immature Gran % 0.6 % 12:38 AM [facility] Immature Gran Absolute 0.06(H) 0.00 - 0.04 x10(3)/mc L 06/14/2024 12:38 AM [facility] Blood VENOUS BLOOD SPECIMEN / Unknown Venipuncture / Unknown 06/14/2024 12:12 AM EST 06/14/2024 12:29 AM EST Shahnaz Scanlon MD HEMATOLOGY ORDERABLE S [facility] [place] [address] * Magnesium (06/14/2024 12:12 AM EST) Magnesium 0.74 0.69 - 1.07 mMol/L 06/14/2024 12:57 AM [facility] Blood VENOUS BLOOD SPECIMEN / Unknown Venipuncture / Unknown 06/14/2024 12:12 AM EST 06/14/2024 12:29 AM EST Shahnaz Scanlon MD CHEMISTRY ORDERABLES [facility] [place] [address] * (ABNORMAL) Basic Metabolic Panel (06/14/2024 12:12 AM EST) Glucose 97 65 - 199 mg/dL 06/14/2024 12:57 AM [facility] Comment:Glucose Concentratio n >=200 mg/dL plus symptoms is consistent with Diabetes Mellitus. Blood Urea Nitrogen 25(H) 10 - 20 mg/dL 06/14/2024 12:57 AM [facility] Creatinine 1.14 0.80 - 1.50 mg/dL 06/14/2024 12:57 AM [facility] Sodium 135 135 - 145 mMol/L 06/14/2024 12:57 AM [facility] Potassium 4.1 3.5 - 5.0 mMol/L 06/14/2024 12:57 AM [facility] Chloride 100 98 - 107 mMol/L 06/14/2024 12:57 AM [facility] Carbon Dioxide 25 22 - 31 mMol/L 06/14/2024 12:57 AM [facility] Anion Gap 10 5 - 15 mMol/L 06/14/2024 12:57 AM [facility] Calcium 9.5 8.5 - 10.5 mg/dL 06/14/2024 12:57 AM [facility] Est Glomerular Filtration Rate - Male 70 mL/min/1. 73 m?? 06/14/2024 12:57 AM [facility] [...] Scanlon MD CHEMISTRY ORDERABLES Performing Organization Address [facility]/ZIP Co de Phone Number [facility] [place] [address] * Scan Doc: Implantable Devices (06/14/2024 12:00 AM EST) Narrative 06/14/2024 12:00 AM EST Ordered by an unspecified provider. Scanning Provider MEDIA MGR SCAN EXT O RDR/RSLT * POC, GLUCOSE (06/13/2024 11:12 PM EST) Glucometer, POC 104 65 - 199 mg/dL 06/13/2024 11:[address] [facility] Comment:Supplemental ranges: <140 mg/dL before meals <180 mg/dL all other times of the day. Blood CAPILLARY BLOOD / Unknown 06/13/2024 11:12 PM EST 06/13/2024 11:13 PM EST Haja Byrnes MD POINT OF CARE TEST O RDERABLES Performing Organization Address City/[facility]/ZIP Co de Phone Number [facility] [place] [address] * (ABNORMAL) POC, GLUCOSE (06/13/2024 8:03 PM EST) Glucometer, POC 206(H) 65 - 199 mg/dL 06/13/2024 8:[address] [facility] Comment:Supplemental ranges: <140 mg/dL before meals <180 mg/dL all other times of the day. Blood CAPILLARY BLOOD / Unknown 06/13/2024 8:03 PM EST 06/13/2024 8:03 PM EST Haja Byrnes MD POINT OF CARE TEST O RDERABLES Performing Organization Address City/[facility]/ZIP Co de Phone Number [facility] [place] [address] * Heparin (unfractionated) Level (06/13/2024 4:11 PM EST) UF Heparin 0.76 IU/mL 06/13/2024 4:[address] [facility] Comment: Heparin (anti-Xa) levels should [...] EST Shahnaz Scanlon MD HEMATOLOGY ORDERABLE S [facility] [place] [address] * ABORH RECHECK (06/13/2024 4:11 PM EST) ABORH Recheck O POSITIVE 06/13/2024 4:50 PM EST [facility] Blood VENOUS BLOOD SPECIMEN / Unknown Venipuncture / Unknown 06/13/2024 4:11 PM EST 06/13/2024 4:19 PM EST Haja Byrnes MD BLOOD BANK LAB ORDER EUSEBIA [facility] [place] [place] [address] * (ABNORMAL) POC, GLUCOSE (06/13/2024 4:09 PM EST) [facility] Glucometer, POC 216(H) 65 - 199 mg/dL 06/13/2024 4:[address] [facility] Comment:Supplemental ranges: <140 mg/dL before meals <180 mg/dL all other times of the day. Blood CAPILLARY BLOOD / Unknown 06/13/2024 4:09 PM EST 06/13/2024 4:10 PM EST Haja Byrnes MD POINT OF CARE TEST O RDERABLES [facility] [place] [address] * Type and screen ([facility] [place] [place]/CGP/RAFITA) (06/13/2024 11:53 AM EST) [facility] ABORH Type O POSITIVE 06/13/2024 1:16 PM EST [facility] PATIENT HISTORY Not Found 06/13/2024 1:16 PM EST [facility] Expires at [id number] on: 06/16/2024 06/13/2024 1:16 PM EST [facility] ANTIBODY SCREEN AUTOMATED Negative 06/13/2024 1:16 PM EST [facility] T&S only valid at [facility] [place] [place] [facility] 06/13/2024 1:16 PM EST [facility] Blood VENOUS BLOOD SPECIMEN / Unknown Venipuncture / Unknown 06/13/2024 11:53 AM EST 06/13/2024 11:56 AM EST Narrative [facility] - 06/13/2024 1:16 PM EST This Type and Screen result is only valid at the [facility] [place] [place] [facility] Haja Byrnes MD BLOOD BANK LAB ORDER EUSEBIA Performing Organization Address [facility] Co de Phone Number [facility] [place] [place] [address] * POC, GLUCOSE (06/13/2024 11:50 AM EST) Glucometer, POC 178 65 - 199 mg/dL 06/13/2024 11:[address] [facility] Comment:Supplemental ranges: <140 mg/dL before meals <180 mg/dL all other times of the day. Blood CAPILLARY BLOOD / Unknown 06/13/2024 11:50 AM EST 06/13/2024 11:51 AM EST Haja Byrnes MD POINT OF CARE TEST O RDERABLES Performing Organization Address [facility] Co de Phone Number [facility] [place] [address] * XR Chest One View (06/13/2024 10:35 AM EST) [facility] WORKSTATION ID [id number] RAD Anatomical Region Laterality Modality Chest N/A [...] have questions please contact the health healthcare insurance sales agent that requested your imaging first. ? Narrative [...] who have questions please contactthe health healthcare insurance sales agent that requested your imaging first. Haja Byrnes MD IMG DX ORDERABLES * CARDIAC CATHETERIZATION (06/13/2024 9:02 AM EST) Anatomical Region Laterality Modality Other Narrative 06/15/2024 9:07 AM EST ?[facility] ? Cardiac Catheterization/Intervention Report ? Patient Name: Tyson, Georeg L. ? Procedure Date: 06/13/2024 ? A #: [id number] ? Primary Physician: Nuha Shen I ? Case #: [id number] ? File Name: [id number] ? Catheterization Order Number: [id number] ? [facility] ? Final Report [place], [place] ? Patient Name: ? George Mehta ? ID#: ?[id number] ? : ?1955 ? Procedure Date: ? June 13, 2024 ?Case #: ? [id number] ? Room: ? 6 ? Case Physician: ? Nuha Shen M.D. ? Start: ?09:20 ?Fellow: ? Stefano Rowland, P.A. ? Admission: ??06/02/2024 ? Referring Physician: ??Rebel Muñiz P.A. ? Procedures: ?* Intra-Aortic Balloon Pump (IABP) [...] ?was designated as ASA Class IV. The [facility] clinical frailty scale is 5: ?Mildly Frail. [...] procedure was Urgent. The indication for ?the quality assurance/r&d lab technician visit is ACS greater than [...] angiography, vascular ?ultrasound and IABP insertion in quality assurance/r&d lab technician. ? Nuha Shen M.D. ? Electronically Signed by: Nuha Shen M.D. ? Report Finalized: 06/15/2024 ??08:59 ? Procedure Note Nuha Shen MD - 06/15/2024 [facility] Cardiac Catheterization/Intervention Report Patient Name: George MehtaViry Procedure Date: 06/13/2024 A #: [id number] Primary Physician: Nuha Shen I Case #: [id number] File Name: [id number] Catheterization Order Number: [id number] [facility] FinalReport [place], [place] Patient Name: George Mehta ID#:[id number] :1955 Procedure Date: June 13, 2024 Case [...] was designated as ASA Class IV. The [facility] clinical frailty scale is5: Mildly Frail. Diagnostic [...] diagnostic procedure was Urgent. The indicationfor the quality assurance/r&d lab technician visit is ACS greater than [...] site angiography,vascular ultrasound and IABP insertion in quality assurance/r&d lab technician. Nuha Shen M.D. Electronically Signed by: Nuha Shen M.D. Report Finalized: 06/15/2024 08:59 Nuha Rojo MD CARDIAC CATH ORDERA BLES * Potassium (06/13/2024 7:48 AM EST) Potassium 4.5 3.5 - 5.0 mMol/L 06/13/2024 8:[address] [facility] Blood VENOUS BLOOD SPECIMEN / Unknown Venipuncture / Unknown 06/13/2024 7:48 AM EST 06/13/2024 7:55 AM EST Shahnaz Scanlon MD CHEMISTRY ORDERABLES [facility] [place] [address] * POC, GLUCOSE (06/13/2024 7:41 AM EST) Glucometer, POC 126 65 - 199 mg/dL 06/13/2024 7:[address] [facility] Comment:Supplemental ranges: <140 mg/dL before meals <180 mg/dL all other times of the day. Blood CAPILLARY BLOOD / Unknown 06/13/2024 7:41 AM EST 06/13/2024 7:41 AM EST Ethel Carrillo MD POINT OF CARE TEST Abimael MAHER Performing Organization Address [facility] Co de Phone Number [facility] [place] [address] * POC, GLUCOSE (06/13/2024 3:25 AM EST) Glucometer, POC 99 65 - 199 mg/dL 06/13/2024 3:[address] [facility] Comment:Supplemental ranges: <140 mg/dL before meals <180 mg/dL all other times of the day. Blood CAPILLARY BLOOD / Unknown 06/13/2024 3:25 AM EST 06/13/2024 3:25 AM EST Ethel Carrillo MD POINT OF CARE TEST Abimael MAHER Performing Organization Address [facility] Co de Phone Number [facility] [place] [address] * Heparin (unfractionated) Level (06/13/2024 2:26 AM EST) Pathologist [facility] UF Heparin 0.60 IU/mL 06/13/2024 3:[address] [facility] Comment: Heparin (anti-Xa) levels should [...] MD HEMATOLOGY ORDERABLE S Performing Organization Address City/State/[facility] Co de Phone Number [facility] [place] [address] * (ABNORMAL) CBC (with Diff) (06/13/2024 2:26 AM EST) White Blood Cell 9.98(H) 4.00 - 9.50 x10(3)/mc L 06/13/2024 2:41 AM [facility] Red Blood Cell 5.11 4.58 - 5.54 x10(6)/mc L 06/13/2024 2:41 AM [facility] Hemoglobin 15.3 13.7 - 16.5 g/dL 06/13/2024 2:41 AM [facility] Hematocrit 47.1 40.5 - 48.5 % 06/13/2024 2:41 AM [facility] Mean Cell Volume 92.2 82.9 - 93.1 fL 06/13/2024 2:41 AM [facility] Mean Cell Hemoglobin 29.9 27.5 - 32.1 pg 06/13/2024 2:41 AM [facility] Mean Cell Hemoglobin Concentration 32.5 32.0 - 35.7 g/dL 06/13/2024 2:41 AM [facility] Platelet 194 145 - 357 x10(3)/mc L 06/13/2024 2:41 AM [facility] Mean Platelet Volume 9.7 7.6 - 12.9 fL 06/13/2024 2:41 AM [facility] RDW Standard Deviation 47.5(H) 36.0 - 45.0 fL 06/13/2024 2:41 AM [facility] RDW coefficient of variation 13.8 11.4 - 13.8 % 06/13/2024 2:41 AM [facility] NRBC% auto 0.0 % 06/13/2024 2:41 AM [facility] NRBC Absolute <0.01 <0.01 x10(3)/mc L 06/13/2024 2:41 AM [facility] Neutrophil % 48.8 % 06/13/2024 2:41 AM [facility] Neutrophil Absolute (ANC) - Automated 4.87 1.70 - 6.10 x10(3)/mc L 06/13/2024 2:41 AM [facility] Lymph % 35.3 % 06/13/2024 2:41 AM [facility] Lymph Absolute 3.52(H) 0.90 - 3.20 x10(3)/mc L 06/13/2024 2:41 AM [facility] Monocyte % 10.1 % 06/13/2024 2:41 AM [facility] Monocyte Absolute 1.01(H) 0.30 - 0.90 x10(3)/mc L 06/13/2024 2:41 AM [facility] Eos % 4.4 % 06/13/2024 2:41 AM [facility] Eos Absolute 0.44(H) 0.00 - 0.40 x10(3)/mc L 06/13/2024 2:41 AM [facility] Basophil % 0.9 % 06/13/2024 2:41 AM [facility] Baso Absolute 0.09 0.00 - 0.10 x10(3)/mc L 06/13/2024 2:[address] [facility] Immature Gran % 0.5 % 2:41 AM [facility] Immature Gran Absolute 0.05(H) 0.00 - 0.04 x10(3)/mc L 06/13/2024 2:41 AM [facility] Blood VENOUS BLOOD SPECIMEN / Unknown Venipuncture / Unknown 06/13/2024 2:26 AM EST 06/13/2024 2:32 AM EST Shahnaz Scanlon MD HEMATOLOGY ORDERABLE S Performing Organization Address City/[facility]/ZIP Co de Phone Number [facility] [place] [address] * Magnesium (06/13/2024 2:26 AM EST) Magnesium 0.78 0.69 - 1.07 mMol/L 06/13/2024 2:58 AM [facility] Blood VENOUS BLOOD SPECIMEN / Unknown Venipuncture / Unknown 06/13/2024 2:26 AM EST 06/13/2024 2:31 AM EST Shahnaz Scanlon MD CHEMISTRY ORDERABLES Performing Organization Address City/[facility]/ZIP Co de Phone Number [facility] [place] [address] * (ABNORMAL) Basic Metabolic Panel (06/13/2024 2:26 AM EST) Glucose 121 65 - 199 mg/dL 06/13/2024 2:58 AM [facility] Comment:Glucose Concentratio n >=200 mg/dL plus symptoms is consistent with Diabetes Mellitus. Blood Urea Nitrogen 21(H) 10 - 20 mg/dL 06/13/2024 2:58 AM [facility] Creatinine 1.07 0.80 - 1.50 mg/dL 06/13/2024 2:58 AM [facility] Sodium 136 135 - 145 mMol/L 06/13/2024 2:58 AM [facility] Potassium 3.9 3.5 - 5.0 mMol/L 06/13/2024 2:58 AM [facility] Chloride 99 98 - 107 mMol/L 06/13/2024 2:58 AM [facility] Carbon Dioxide 27 22 - 31 mMol/L 06/13/2024 2:58 AM [facility] Anion Gap 10 5 - 15 mMol/L 06/13/2024 2:58 AM [facility] Calcium 9.7 8.5 - 10.5 mg/dL 06/13/2024 2:58 AM [facility] Est Glomerular Filtration Rate - Male 76 mL/min/1. 73 m?? 06/13/2024 2:58 AM [facility] [...] AM EST Shahnaz Scanlon MD CHEMISTRY ORDERABLES [facility] [place] [address] * POC, GLUCOSE (06/12/2024 11:53 PM EST) [facility] Signature Glucometer, POC 141 65 - 199 mg/dL 06/12/2024 11:[address] [facility] Comment:Supplemental ranges: <140 mg/dL before meals <180 mg/dL all other times of the day. Blood CAPILLARY BLOOD / Unknown 06/12/2024 11:53 PM EST 06/12/2024 11:54 PM EST Ethel Carrillo MD POINT OF CARE TEST O NIKA Performing Organization Address [facility] Co de Phone Number [facility] [place] [address] * POC, GLUCOSE (06/12/2024 7:32 PM EST) Glucometer, POC 158 65 - 199 mg/dL 06/12/2024 7:[address] [facility] Comment:Supplemental ranges: <140 mg/dL before meals <180 mg/dL all other times of the day. Blood CAPILLARY BLOOD / Unknown 06/12/2024 7:32 PM EST 06/12/2024 7:32 PM EST Ethel Carrillo MD POINT OF CARE TEST O NIKA Performing Organization Address [facility] Co de Phone Number [facility] [place] [address] * POC, GLUCOSE (06/12/2024 3:41 PM EST) Glucometer, POC 113 65 - 199 mg/dL 06/12/2024 3:[address] [facility] Comment:Supplemental ranges: <140 mg/dL before meals <180 mg/dL all other times of the day. Blood CAPILLARY BLOOD / Unknown 06/12/2024 3:41 PM EST 06/12/2024 3:41 PM EST Ethel Carrillo MD POINT OF CARE TEST O NIKA Performing Organization Address City/[facility] Co de Phone Number [facility] [place] [address] * Potassium (06/12/2024 2:19 PM EST) Potassium 4.5 3.5 - 5.0 mMol/L 06/12/2024 2:[address] [facility] Blood VENOUS BLOOD SPECIMEN / Unknown Venipuncture / Unknown 06/12/2024 2:19 PM EST 06/12/2024 2:23 PM EST Shahnaz Scanlon MD CHEMISTRY ORDERABLES [facility] [place] [address] * (ABNORMAL) POC, GLUCOSE (06/12/2024 11:21 AM EST) Glucometer, POC 207(H) 65 - 199 mg/dL 06/12/2024 11:[address] [facility] Comment:Supplemental ranges: <140 mg/dL before meals <180 mg/dL all other times of the day. Blood CAPILLARY BLOOD / Unknown 06/12/2024 11:21 AM EST 06/12/2024 11:22 AM EST Ethel Carrillo MD POINT OF CARE TEST O NIKA [facility] [place] [address] * POC, GLUCOSE (06/12/2024 8:00 AM EST) Glucometer, POC 169 65 - 199 mg/dL 06/12/2024 8:[address] [facility] Comment:Supplemental ranges: <140 mg/dL before meals <180 mg/dL all other times of the day. Blood CAPILLARY BLOOD / Unknown 06/12/2024 8:00 AM EST 06/12/2024 8:01 AM EST Ethel Carrillo MD POINT OF CARE TEST O RDERAPIETER [facility] [place] [address] * POC, GLUCOSE (06/12/2024 4:25 AM EST) Glucometer, POC 132 65 - 199 mg/dL 06/12/2024 4:[address] [facility] Comment:Supplemental ranges: <140 mg/dL before meals <180 mg/dL all other times of the day. Blood CAPILLARY BLOOD / Unknown 06/12/2024 4:25 AM EST 06/12/2024 4:26 AM EST Ethel Carrillo MD POINT OF CARE TEST O RDERABLES Performing Organization Address [facility] de Phone Number [facility] [place] [address] * Heparin (unfractionated) Level (06/12/2024 3:03 AM EST) UF Heparin 0.55 IU/mL 06/12/2024 3:[address] [facility] Comment: Heparin (anti-Xa) levels should [...] MD HEMATOLOGY ORDERABLE S Performing Organization Address [facility] Co de Phone Number [facility] [place] [address] * (ABNORMAL) CBC (with Diff) (06/12/2024 3:03 AM EST) White Blood Cell 9.69(H) 4.00 - 9.50 x10(3)/mc L 06/12/2024 3:36 AM [facility] Red Blood Cell 5.05 4.58 - 5.54 x10(6)/mc L 06/12/2024 3:36 AM [facility] Hemoglobin 15.2 13.7 - 16.5 g/dL 06/12/2024 3:36 AM [facility] Hematocrit 46.6 40.5 - 48.5 % 06/12/2024 3:36 AM [facility] Mean Cell Volume 92.3 82.9 - 93.1 fL 06/12/2024 3:36 AM [facility] Mean Cell Hemoglobin 30.1 27.5 - 32.1 pg 06/12/2024 3:36 AM [facility] Mean Cell Hemoglobin Concentration 32.6 32.0 - 35.7 g/dL 06/12/2024 3:36 AM [facility] Platelet 194 145 - 357 x10(3)/mc L 06/12/2024 3:36 AM [facility] Mean Platelet Volume 10.1 7.6 - 12.9 fL 06/12/2024 3:36 AM [facility] RDW Standard Deviation 47.7(H) 36.0 - 45.0 fL 06/12/2024 3:36 AM [facility] RDW coefficient of variation 14.0(H) 11.4 - 13.8 % 06/12/2024 3:36 AM [facility] NRBC% auto 0.0 % 06/12/2024 3:36 AM [facility] NRBC Absolute <0.01 <0.01 x10(3)/mc L 06/12/2024 3:36 AM [facility] Neutrophil % 49.9 % 06/12/2024 3:36 AM [facility] Neutrophil Absolute (ANC) - Automated 4.82 1.70 - 6.10 x10(3)/mc L 06/12/2024 3:36 AM [facility] Lymph % 33.5 % 06/12/2024 3:36 AM [facility] Lymph Absolute 3.25(H) 0.90 - 3.20 x10(3)/mc L 06/12/2024 3:36 AM [facility] Monocyte % 11.1 % 06/12/2024 3:36 AM [facility] Monocyte Absolute 1.08(H) 0.30 - 0.90 x10(3)/mc L 06/12/2024 3:36 AM [facility] Eos % 4.1 % 06/12/2024 3:36 AM [facility] Eos Absolute 0.40 0.00 - 0.40 x10(3)/mc L 06/12/2024 3:36 AM [facility] Basophil % 0.8 % 06/12/2024 3:36 AM [facility] Baso Absolute 0.08 0.00 - 0.10 x10(3)/mc L 06/12/2024 3:36 AM [facility] Immature Gran % 0.6 % 3:36 AM [facility] Immature Gran Absolute 0.06(H) 0.00 - 0.04 x10(3)/mc L 06/12/2024 3:36 AM [facility] Blood VENOUS BLOOD SPECIMEN / Unknown Venipuncture / Unknown 06/12/2024 3:03 AM EST 06/12/2024 3:30 AM EST Shahnaz Scanlon MD HEMATOLOGY ORDERABLE S [facility] [place] [address] * Magnesium (06/12/2024 3:03 AM EST) Magnesium 0.79 0.69 - 1.07 mMol/L 06/12/2024 4:01 AM [facility] Blood VENOUS BLOOD SPECIMEN / Unknown Venipuncture / Unknown 06/12/2024 3:03 AM EST 06/12/2024 3:30 AM EST Shahnaz Scanlon MD CHEMISTRY ORDERABLES [facility] [place] [address] * (ABNORMAL) Basic Metabolic Panel (06/12/2024 3:03 AM EST) Glucose 132 65 - 199 mg/dL 06/12/2024 4:01 AM [facility] Comment:Glucose Concentratio n >=200 mg/dL plus symptoms is consistent with Diabetes Mellitus. Blood Urea Nitrogen 23(H) 10 - 20 mg/dL 06/12/2024 4:01 AM [facility] Creatinine 1.15 0.80 - 1.50 mg/dL 06/12/2024 4:01 AM [facility] Sodium 138 135 - 145 mMol/L 06/12/2024 4:01 AM [facility] Potassium 3.8 3.5 - 5.0 mMol/L 06/12/2024 4:01 AM [facility] Chloride 98 98 - 107 mMol/L 06/12/2024 4:01 AM [facility] Carbon Dioxide 29 22 - 31 mMol/L 06/12/2024 4:01 AM [facility] Anion Gap 11 5 - 15 mMol/L 06/12/2024 4:01 AM [facility] Calcium 9.5 8.5 - 10.5 mg/dL 06/12/2024 4:01 AM [facility] Est Glomerular Filtration Rate - Male 70 mL/min/1. 73 m?? 06/12/2024 4:01 AM [facility] [...] Scanlon MD CHEMISTRY ORDERABLES Performing Organization Address [facility] Co de Phone Number [facility] [place] [address] * POC, GLUCOSE (06/11/2024 11:56 PM EST) Glucometer, POC 135 65 - 199 mg/dL 06/11/2024 11:[address] [facility] Comment:Supplemental ranges: <140 mg/dL before meals <180 mg/dL all other times of the day. Blood CAPILLARY BLOOD / Unknown 06/11/2024 11:56 PM EST 06/11/2024 11:56 PM EST Ethel Carrillo MD POINT OF CARE TEST O RDERABLES Performing Organization Address [facility] Co de Phone Number [facility] [place] [address] * (ABNORMAL) POC, GLUCOSE (06/11/2024 8:25 PM EST) Glucometer, POC 210(H) 65 - 199 mg/dL 06/11/2024 8:[address] [facility] Comment:Supplemental ranges: <140 mg/dL before meals <180 mg/dL all other times of the day. Blood CAPILLARY BLOOD / Unknown 06/11/2024 8:25 PM EST 06/11/2024 8:26 PM EST Ethel Carrillo MD POINT OF CARE TEST O NIKA Performing Organization Address [facility] Co de Phone Number [facility] [place] [address] * POC, GLUCOSE (06/11/2024 4:24 PM EST) Glucometer, POC 81 65 - 199 mg/dL 06/11/2024 4:[address] [facility] Comment:Supplemental ranges: <140 mg/dL before meals <180 mg/dL all other times of the day. Blood CAPILLARY BLOOD / Unknown 06/11/2024 4:24 PM EST 06/11/2024 4:25 PM EST Ethel Carrillo MD POINT OF CARE TEST O NIKA Performing Organization Address [facility] de Phone Number [facility] [place] [address] * (ABNORMAL) POC, GLUCOSE (06/11/2024 11:08 AM EST) Glucometer, POC 233(H) 65 - 199 mg/dL 06/11/2024 11:[address] [facility] Comment:Supplemental ranges: <140 mg/dL before meals <180 mg/dL all other times of the day. Blood CAPILLARY BLOOD / Unknown 06/11/2024 11:08 AM EST 06/11/2024 11:08 AM EST Ethel Carrillo MD POINT OF CARE TEST O NIKA Performing Organization Address [facility] Co de Phone Number [facility] [place] [address] * POC, GLUCOSE (06/11/2024 7:48 AM EST) Glucometer, POC 184 65 - 199 mg/dL 06/11/2024 7:[address] [facility] Comment:Supplemental ranges: <140 mg/dL before meals <180 mg/dL all other times of the day. Blood CAPILLARY BLOOD / Unknown 06/11/2024 7:48 AM EST 06/11/2024 7:49 AM EST Melida Valdes MD POINT OF CARE TEST O RDERABLES Performing Organization Address City/[facility]/ZIP Co de Phone Number [facility] [place] [address] * Heparin (unfractionated) Level (06/11/2024 5:31 AM EST) UF Heparin 0.55 IU/mL 06/11/2024 6:[address] [facility] Comment: Heparin (anti-Xa) levels should [...] ORDERABLE S Performing Organization Address City/[facility]/ZIP Co de Phone Number [facility] [place] [address] * POC, GLUCOSE (06/11/2024 3:57 AM EST) Glucometer, POC 132 65 - 199 mg/dL 06/11/2024 3:[address] [facility] Comment:Supplemental ranges: <140 mg/dL before meals <180 mg/dL all other times of the day. Blood CAPILLARY BLOOD / Unknown 06/11/2024 3:57 AM EST 06/11/2024 3:58 AM EST Melida Valdes MD POINT OF CARE TEST O RDERABLES [facility] [place] [address] * (ABNORMAL) CBC (with Diff) (06/11/2024 2:13 AM EST) White Blood Cell 9.91(H) 4.00 - 9.50 x10(3)/mc L 06/11/2024 2:26 AM [facility] Red Blood Cell 5.13 4.58 - 5.54 x10(6)/mc L 06/11/2024 2:26 AM [facility] Hemoglobin 15.3 13.7 - 16.5 g/dL 06/11/2024 2:26 AM [facility] Hematocrit 47.5 40.5 - 48.5 % 06/11/2024 2:26 AM [facility] Mean Cell Volume 92.6 82.9 - 93.1 fL 06/11/2024 2:26 AM [facility] Mean Cell Hemoglobin 29.8 27.5 - 32.1 pg 06/11/2024 2:26 AM [facility] Mean Cell Hemoglobin Concentration 32.2 32.0 - 35.7 g/dL 06/11/2024 2:26 AM [facility] Platelet 184 145 - 357 x10(3)/mc L 06/11/2024 2:26 AM [facility] Mean Platelet Volume 9.7 7.6 - 12.9 fL 06/11/2024 2:26 AM [facility] RDW Standard Deviation 48.0(H) 36.0 - 45.0 fL 06/11/2024 2:26 AM [facility] RDW coefficient of variation 14.0(H) 11.4 - 13.8 % 06/11/2024 2:26 AM [facility] NRBC% auto 0.0 % 06/11/2024 2:26 AM [facility] NRBC Absolute <0.01 <0.01 x10(3)/mc L 06/11/2024 2:26 AM [facility] Neutrophil % 50.3 % 06/11/2024 2:26 AM [facility] Neutrophil Absolute (ANC) - Automated 4.98 1.70 - 6.10 x10(3)/mc L 06/11/2024 2:26 AM [facility] Lymph % 33.5 % 06/11/2024 2:26 AM [facility] Lymph Absolute 3.32(H) 0.90 - 3.20 x10(3)/mc L 06/11/2024 2:26 AM [facility] Monocyte % 10.9 % 06/11/2024 2:26 AM [facility] Monocyte Absolute 1.08(H) 0.30 - 0.90 x10(3)/mc L 06/11/2024 2:26 AM [facility] Eos % 4.1 % 06/11/2024 2:26 AM [facility] Eos Absolute 0.41(H) 0.00 - 0.40 x10(3)/mc L 06/11/2024 2:26 AM [facility] Basophil % 0.7 % 06/11/2024 2:26 AM [facility] Baso Absolute 0.07 0.00 - 0.10 x10(3)/mc L 06/11/2024 2:26 AM [facility] Immature Gran % 0.5 % 2:26 AM [facility] Immature Gran Absolute 0.05(H) 0.00 - 0.04 x10(3)/mc L 06/11/2024 2:26 AM [facility] Blood VENOUS BLOOD SPECIMEN / Unknown Venipuncture / Unknown 06/11/2024 2:13 AM EST 06/11/2024 2:19 AM EST Shahnaz Scanlon MD HEMATOLOGY ORDERABLE S Performing Organization Address City/[facility]/ZIP Co de Phone Number [facility] [place] [address] * Magnesium (06/11/2024 2:13 AM EST) Magnesium 0.83 0.69 - 1.07 mMol/L 06/11/2024 2:51 AM [facility] Blood VENOUS BLOOD SPECIMEN / Unknown Venipuncture / Unknown 06/11/2024 2:13 AM EST 06/11/2024 2:19 AM EST Shahnaz Scanlon MD CHEMISTRY ORDERABLES Performing Organization Address City/[facility]/ZIP Co de Phone Number [facility] [place] [address] * (ABNORMAL) Basic Metabolic Panel (06/11/2024 2:13 AM EST) Glucose 148 65 - 199 mg/dL 06/11/2024 2:51 AM [facility] Comment:Glucose Concentratio n >=200 mg/dL plus symptoms is consistent with Diabetes Mellitus. Blood Urea Nitrogen 24(H) 10 - 20 mg/dL 06/11/2024 2:[address] [facility] Creatinine 1.06 0.80 - 1.50 mg/dL 06/11/2024 2:51 AM [facility] Sodium 134(L) 135 - 145 mMol/L 06/11/2024 2:51 AM [facility] Potassium 4.1 3.5 - 5.0 mMol/L 06/11/2024 2:51 AM [facility] Chloride 96(L) 98 - 107 mMol/L 06/11/2024 2:51 AM [facility] Carbon Dioxide 28 22 - 31 mMol/L 06/11/2024 2:[address] [facility] Anion Gap 10 5 - 15 mMol/L 06/11/2024 2:[address] [facility] Calcium 9.4 8.5 - 10.5 mg/dL 06/11/2024 2:[address] [facility] Est Glomerular Filtration Rate - Male 77 mL/min/1. 73 m?? 06/11/2024 2:[address] [facility] Comment: This patient's estimated GFR [...] AM EST Shahnaz Scanlon MD CHEMISTRY ORDERABLES [facility] [place] [address] * POC, GLUCOSE (06/11/2024 12:50 AM EST) [facility] Signature Glucometer, POC 144 65 - 199 mg/dL 06/11/2024 12:[address] [facility] Comment:Supplemental ranges: <140 mg/dL before meals <180 mg/dL all other times of the day. Blood CAPILLARY BLOOD / Unknown 06/11/2024 12:50 AM EST 06/11/2024 12:51 AM EST Melida Valdes MD POINT OF CARE TEST O RDERABLES [facility] [place] [address] * (ABNORMAL) POC, GLUCOSE (06/10/2024 7:22 PM EST) [facility] Signature Glucometer, POC 236(H) 65 - 199 mg/dL 06/10/2024 7:[address] [facility] Comment:Supplemental ranges: <140 mg/dL before meals <180 mg/dL all other times of the day. Blood CAPILLARY BLOOD / Unknown 06/10/2024 7:22 PM EST 06/10/2024 7:22 PM EST Melida Valdes MD POINT OF CARE TEST O RDERABLES [facility] [place] [address] * (ABNORMAL) Blood Gas, Venous (06/10/2024 5:42 PM EST) [facility] pH, Venous 7.34 7.32 - 7.42 06/10/2024 5:50 PM [facility] PCO2, Venous 52 38 - 58 mmHg 06/10/2024 5:50 PM [facility] PO2, Venous 24 16 - 65 mmHg 06/10/2024 5:50 PM [facility] Bicarbonate, Venous 27.4 22 - 31 mmol/L 06/10/2024 5:50 PM [facility] Base Excess, Venous 1.7(L) 1.9 - 4.5 mmol/L 06/10/2024 5:50 PM [facility] Hemoglobin, Venous 16.8(H) 13.7 - 16.5 g/dL 06/10/2024 5:50 PM [facility] Oxyhemoglobin, Venous 39.0 % 06/10/2024 5:50 PM [facility] Carboxyhemoglobin , Venous 0.3 % 06/10/2024 5:50 PM [facility] Comment: Nonsmokers: 0.5-1.5% COHB ?? Smokers: Variable ??but usually less than 10% ?? Toxic: 20-30% COHB ?? Lethal: Greater than 60% COHB Methemoglobin, Venous 0.5 <=1.5 % 06/10/2024 5:50 PM [facility] Sodium, Venous 137 135 - 145 mmol/L 06/10/2024 5:[address] [facility] Chloride, Venous 96(L) 98 - 107 mmol/L 06/10/2024 5:50 PM [facility] Potassium, Venous 4.6 3.5 - 5.0 mmol/L 06/10/2024 5:50 PM [facility] Ionized Calcium, Venous 1.23 1.15 - 1.33 mmol/L 06/10/2024 5:50 PM [facility] Glucose, Venous 114 65 - 199 mg/dL 06/10/2024 5:50 PM [facility] Comment:Glucose Concentratio n >=200 mg/dL plus symptoms is consistent with Diabetes Mellitus. Lactate, Venous 1.1 0.5 - 2.2 mmol/L 06/10/2024 5:50 PM [facility] Blood Gas Source Venous 06/10/20 5:50 PM [facility] Blood VENOUS BLOOD SPECIMEN / Unknown Blood Gas Venous / Unknown 06/10/2024 5:42 PM EST 06/10/2024 5:47 PM EST Melida Valdes MD CHEMISTRY ORDERABLES [facility] [place] [address] * POC, GLUCOSE (06/10/2024 5:35 PM EST) [facility] Signature Glucometer, POC 123 65 - 199 mg/dL 06/10/2024 5:[address] [facility] Comment:Supplemental ranges: <140 mg/dL before meals <180 mg/dL all other times of the day. Blood CAPILLARY BLOOD / Unknown 06/10/2024 5:35 PM EST 06/10/2024 5:35 PM EST Melida Valdes MD POINT OF CARE TEST O NIKA Performing Organization Address [facility] Co de Phone Number [facility] [place] [address] * (ABNORMAL) POC, GLUCOSE (06/10/2024 11:25 AM EST) Glucometer, POC 216(H) 65 - 199 mg/dL 06/10/2024 11:[address] [facility] Comment:Supplemental ranges: <140 mg/dL before meals <180 mg/dL all other times of the day. Blood CAPILLARY BLOOD / Unknown 06/10/2024 11:25 AM EST 06/10/2024 11:25 AM EST Melida Valdes MD POINT OF CARE TEST O NIKA Performing Organization Address [facility] de Phone Number [facility] [place] [address] * (ABNORMAL) POC, GLUCOSE (06/10/2024 7:46 AM EST) Glucometer, POC 206(H) 65 - 199 mg/dL 06/10/2024 7:[address] [facility] Comment:Supplemental ranges: <140 mg/dL before meals <180 mg/dL all other times of the day. Blood CAPILLARY BLOOD / Unknown 06/10/2024 7:46 AM EST 06/10/2024 7:46 AM EST Melida Valdes MD POINT OF CARE TEST O NIKA Performing Organization Address [facility] Co de Phone Number [facility] [place] [address] * POC, GLUCOSE (06/10/2024 4:23 AM EST) Glucometer, POC 154 65 - 199 mg/dL 06/10/2024 4:[address] [facility] Comment:Supplemental ranges: <140 mg/dL before meals <180 mg/dL all other times of the day. Blood CAPILLARY BLOOD / Unknown 06/10/2024 4:23 AM EST 06/10/2024 4:24 AM EST Melida Valdes MD POINT OF CARE TEST O RDERABLES [facility] [place] [address] * (ABNORMAL) CBC (with Diff) (06/10/2024 1:55 AM EST) White Blood Cell 9.00 4.00 - 9.50 x10(3)/mc L 06/10/2024 2:14 AM [facility] Red Blood Cell 5.03 4.58 - 5.54 x10(6)/mc L 06/10/2024 2:14 AM [facility] Hemoglobin 14.9 13.7 - 16.5 g/dL 06/10/2024 2:14 AM [facility] Hematocrit 46.4 40.5 - 48.5 % 06/10/2024 2:14 AM [facility] Mean Cell Volume 92.2 82.9 - 93.1 fL 06/10/2024 2:14 AM [facility] Mean Cell Hemoglobin 29.6 27.5 - 32.1 pg 06/10/2024 2:14 AM [facility] Mean Cell Hemoglobin Concentration 32.1 32.0 - 35.7 g/dL 06/10/2024 2:14 AM [facility] Platelet 191 145 - 357 x10(3)/mc L 06/10/2024 2:14 AM [facility] Mean Platelet Volume 9.7 7.6 - 12.9 fL 06/10/2024 2:14 AM [facility] RDW Standard Deviation 47.4(H) 36.0 - 45.0 fL 06/10/2024 2:14 AM [facility] RDW coefficient of variation 14.1(H) 11.4 - 13.8 % 06/10/2024 2:14 AM [facility] NRBC% auto 0.0 % 06/10/2024 2:14 AM [facility] NRBC Absolute <0.01 <0.01 x10(3)/mc L 06/10/2024 2:14 AM [facility] Neutrophil % 48.7 % 06/10/2024 2:14 AM [facility] Neutrophil Absolute (ANC) - Automated 4.39 1.70 - 6.10 x10(3)/mc L 06/10/2024 2:14 AM [facility] Lymph % 34.9 % 06/10/2024 2:14 AM [facility] Lymph Absolute 3.14 0.90 - 3.20 x10(3)/mc L 06/10/2024 2:14 AM [facility] Monocyte % 11.2 % 06/10/2024 2:14 AM [facility] Monocyte Absolute 1.01(H) 0.30 - 0.90 x10(3)/mc L 06/10/2024 2:14 AM [facility] Eos % 3.6 % 06/10/2024 2:14 AM [facility] Eos Absolute 0.32 0.00 - 0.40 x10(3)/mc L 06/10/2024 2:14 AM [facility] Basophil % 1.0 % 06/10/2024 2:14 AM [facility] Baso Absolute 0.09 0.00 - 0.10 x10(3)/mc L 06/10/2024 2:14 AM [facility] Immature Gran % 0.6 % 2:14 AM [facility] Immature Gran Absolute 0.05(H) 0.00 - 0.04 x10(3)/mc L 06/10/2024 2:14 AM [facility] Blood VENOUS BLOOD SPECIMEN / Unknown Venipuncture / Unknown 06/10/2024 1:55 AM EST 06/10/2024 2:05 AM EST Shahnaz Scanlon MD HEMATOLOGY ORDERABLE S Performing Organization Address City/[facility]/ZIP Co de Phone Number [facility] [place] [address] * Magnesium (06/10/2024 1:55 AM EST) Magnesium 0.83 0.69 - 1.07 mMol/L 06/10/2024 2:37 AM [facility] Blood VENOUS BLOOD SPECIMEN / Unknown Venipuncture / Unknown 06/10/2024 1:55 AM EST 06/10/2024 2:05 AM EST Shahnaz Scanlon MD CHEMISTRY ORDERABLES Performing Organization Address City/[facility]/ZIP Co de Phone Number [facility] [place] [address] * (ABNORMAL) Basic Metabolic Panel (06/10/2024 1:55 AM EST) Glucose 140 65 - 199 mg/dL 06/10/2024 2:37 AM [facility] Comment:Glucose Concentratio n >=200 mg/dL plus symptoms is consistent with Diabetes Mellitus. Blood Urea Nitrogen 24(H) 10 - 20 mg/dL 06/10/2024 2:37 AM [facility] Creatinine 1.06 0.80 - 1.50 mg/dL 06/10/2024 2:37 AM [facility] Sodium 138 135 - 145 mMol/L 06/10/2024 2:37 AM [facility] Potassium 4.1 3.5 - 5.0 mMol/L 06/10/2024 2:37 AM [facility] Chloride 100 98 - 107 mMol/L 06/10/2024 2:37 AM [facility] Carbon Dioxide 25 22 - 31 mMol/L 06/10/2024 2:[address] [facility] Anion Gap 13 5 - 15 mMol/L 06/10/2024 2:[address] [facility] Calcium 9.5 8.5 - 10.5 mg/dL 06/10/2024 2:[address] [facility] Est Glomerular Filtration Rate - Male 77 mL/min/1. 73 m?? 06/10/2024 2:[address] [facility] Comment: This patient's estimated GFR [...] AM EST Shahnaz Scanlon MD CHEMISTRY ORDERABLES [facility] [place] [address] * Heparin (unfractionated) Level (06/10/2024 1:54 AM EST) UF Heparin 0.56 IU/mL 06/10/2024 2:[address] [facility] Comment: Heparin (anti-Xa) levels should [...] MD HEMATOLOGY ORDERABLE S Performing Organization Address [facility] Co de Phone Number [facility] [place] [address] * POC, GLUCOSE (06/10/2024 12:05 AM EST) Glucometer, POC 125 65 - 199 mg/dL 06/10/2024 12:[address] [facility] Comment:Supplemental ranges: <140 mg/dL before meals <180 mg/dL all other times of the day. Blood CAPILLARY BLOOD / Unknown 06/10/2024 12:05 AM EST 06/10/2024 12:05 AM EST Melida Valdes MD POINT OF CARE TEST O NIKA Performing Organization Address [facility] Co de Phone Number [facility] [place] [place] [address] * POC, GLUCOSE (06/09/2024 8:36 PM EST) Glucometer, POC 197 65 - 199 mg/dL 06/09/2024 8:[address] [facility] Comment:Supplemental ranges: <140 mg/dL before meals <180 mg/dL all other times of the day. Blood CAPILLARY BLOOD / Unknown 06/09/2024 8:36 PM EST 06/09/2024 8:36 PM EST Melida Valdes MD POINT OF CARE TEST O RDBECKIE Performing Organization Address [facility] Co de Phone Number [facility] [place] [address] * POC, GLUCOSE (06/09/2024 5:27 PM EST) Glucometer, POC 174 65 - 199 mg/dL 06/09/2024 5:[address] [facility] Comment:Supplemental ranges: <140 mg/dL before meals <180 mg/dL all other times of the day. Blood CAPILLARY BLOOD / Unknown 06/09/2024 5:27 PM EST 06/09/2024 5:28 PM EST Melida Valdes MD POINT OF CARE TEST O NIKA Performing Organization Address [facility] Co de Phone Number [facility] [place] [address] * (ABNORMAL) POC, GLUCOSE (06/09/2024 11:52 AM EST) Glucometer, POC 211(H) 65 - 199 mg/dL 06/09/2024 11:[address] [facility] Comment:Supplemental ranges: <140 mg/dL before meals <180 mg/dL all other times of the day. Blood CAPILLARY BLOOD / Unknown 06/09/2024 11:52 AM EST 06/09/2024 11:52 AM EST Melida Valdes MD POINT OF CARE TEST O NIKA Performing Organization Address City/[facility] Co de Phone Number [facility] [place] [address] * Potassium (06/09/2024 8:25 AM EST) Potassium 4.6 3.5 - 5.0 mMol/L 06/09/2024 10:[address] [facility] Blood VENOUS BLOOD SPECIMEN / Unknown Venipuncture / Unknown 06/09/2024 8:25 AM EST 06/09/2024 8:42 AM EST Shahnaz Scanlon MD CHEMISTRY ORDERABLES Performing Organization Address [facility] Co de Phone Number [facility] [place] [address] * (ABNORMAL) POC, GLUCOSE (06/09/2024 8:10 AM EST) Glucometer, POC 209(H) 65 - 199 mg/dL 06/09/2024 8:[address] [facility] Comment:Supplemental ranges: <140 mg/dL before meals <180 mg/dL all other times of the day. Blood CAPILLARY BLOOD / Unknown 06/09/2024 8:10 AM EST 06/09/2024 8:11 AM EST Melida Valdes MD POINT OF CARE TEST O RDERABLES Performing Organization Address [facility] Co de Phone Number [facility] [place] [address] * POC, GLUCOSE (06/09/2024 4:40 AM EST) [facility] Signature Glucometer, POC 131 65 - 199 mg/dL 06/09/2024 4:[address] [facility] Comment:Supplemental ranges: <140 mg/dL before meals <180 mg/dL all other times of the day. Blood CAPILLARY BLOOD / Unknown 06/09/2024 4:40 AM EST 06/09/2024 4:41 AM EST Melida Valdes MD POINT OF CARE TEST Abimael MAHER Performing Organization Address [facility] Co de Phone Number [facility] [place] [address] * Heparin (unfractionated) Level (06/09/2024 2:12 AM EST) Pathologist [facility] UF Heparin 0.55 IU/mL 06/09/2024 2:[address] [facility] Comment: Heparin (anti-Xa) levels should [...] EST Shahnaz Scanlon MD HEMATOLOGY ORDERABLE S [facility] [place] [address] * (ABNORMAL) CBC (with Diff) (06/09/2024 2:12 AM EST) White Blood Cell 9.80(H) 4.00 - 9.50 x10(3)/mc L 06/09/2024 2:[address] [facility] Red Blood Cell 5.18 4.58 - 5.54 x10(6)/mc L 06/09/2024 2:[address] [facility] Hemoglobin 15.5 13.7 - 16.5 g/dL 06/09/2024 2:44 AM [facility] Hematocrit 47.4 40.5 - 48.5 % 06/09/2024 2:44 AM [facility] Mean Cell Volume 91.5 82.9 - 93.1 fL 06/09/2024 2:44 AM [facility] Mean Cell Hemoglobin 29.9 27.5 - 32.1 pg 06/09/2024 2:44 AM [facility] Mean Cell Hemoglobin Concentration 32.7 32.0 - 35.7 g/dL 06/09/2024 2:44 AM [facility] Platelet 205 145 - 357 x10(3)/mc L 06/09/2024 2:44 AM [facility] Mean Platelet Volume 9.7 7.6 - 12.9 fL 06/09/2024 2:44 AM [facility] RDW Standard Deviation 47.7(H) 36.0 - 45.0 fL 06/09/2024 2:44 AM [facility] RDW coefficient of variation 14.1(H) 11.4 - 13.8 % 06/09/2024 2:44 AM [facility] NRBC% auto 0.0 % 06/09/2024 2:44 AM [facility] NRBC Absolute <0.01 <0.01 x10(3)/mc L 06/09/2024 2:44 AM [facility] Neutrophil % 53.0 % 06/09/2024 2:44 AM [facility] Neutrophil Absolute (ANC) - Automated 5.19 1.70 - 6.10 x10(3)/mc L 06/09/2024 2:44 AM [facility] Lymph % 31.6 % 06/09/2024 2:44 AM [facility] Lymph Absolute 3.10 0.90 - 3.20 x10(3)/mc L 06/09/2024 2:44 AM [facility] Monocyte % 11.0 % 06/09/2024 2:44 AM [facility] Monocyte Absolute 1.08(H) 0.30 - 0.90 x10(3)/mc L 06/09/2024 2:44 AM [facility] Eos % 2.9 % 06/09/2024 2:44 AM [facility] Eos Absolute 0.28 0.00 - 0.40 x10(3)/mc L 06/09/2024 2:44 AM [facility] Basophil % 0.9 % 06/09/2024 2:[address] [facility] Baso Absolute 0.09 0.00 - 0.10 x10(3)/mc L 06/09/2024 2:[address] [facility] Immature Gran % 0.6 % 2:[address] [facility] Immature Gran Absolute 0.06(H) 0.00 - 0.04 x10(3)/mc L 06/09/2024 2:[address] [facility] Blood VENOUS BLOOD SPECIMEN / Unknown Venipuncture / Unknown 06/09/2024 2:12 AM EST 06/09/2024 2:21 AM EST Shahnaz Scanlon MD HEMATOLOGY ORDERABLE S Performing Organization Address City/[facility]/ZIP Co de Phone Number [facility] [place] [address] * Magnesium (06/09/2024 2:12 AM EST) Magnesium 0.83 0.69 - 1.07 mMol/L 06/09/2024 2:[address] [facility] Blood VENOUS BLOOD SPECIMEN / Unknown Venipuncture / Unknown 06/09/2024 2:12 AM EST 06/09/2024 2:22 AM EST Shahnaz Scanlon MD CHEMISTRY ORDERABLES [facility] [place] [address] * (ABNORMAL) Basic Metabolic Panel (06/09/2024 2:12 AM EST) Glucose 147 65 - 199 mg/dL 06/09/2024 2:[address] [facility] Comment:Glucose Concentratio n >=200 mg/dL plus symptoms is consistent with Diabetes Mellitus. Blood Urea Nitrogen 24(H) 10 - 20 mg/dL 06/09/2024 2:[address] [facility] Creatinine 1.11 0.80 - 1.50 mg/dL 06/09/2024 2:52 AM [facility] Sodium 136 135 - 145 mMol/L 06/09/2024 2:52 AM [facility] Potassium 3.9 3.5 - 5.0 mMol/L 06/09/2024 2:52 AM [facility] Chloride 98 98 - 107 mMol/L 06/09/2024 2:52 AM [facility] Carbon Dioxide 27 22 - 31 mMol/L 06/09/2024 2:52 AM [facility] Anion Gap 11 5 - 15 mMol/L 06/09/2024 2:52 AM [facility] Calcium 9.7 8.5 - 10.5 mg/dL 06/09/2024 2:52 AM [facility] Est Glomerular Filtration Rate - Male 73 mL/min/1. 73 m?? 06/09/2024 2:52 AM [facility] [...] AM EST Shahnaz Scanlon MD CHEMISTRY ORDERABLES [facility] [place] [address] * POC, GLUCOSE (06/09/2024 12:34 AM EST) [facility] Signature Glucometer, POC 186 65 - 199 mg/dL 06/09/2024 12:[address] [facility] Comment:Supplemental ranges: <140 mg/dL before meals <180 mg/dL all other times of the day. Blood CAPILLARY BLOOD / Unknown 06/09/2024 12:34 AM EST 06/09/2024 12:34 AM EST Melida Valdes MD POINT OF CARE TEST O NIKA Performing Organization Address City/[facility]/ZIP Co de Phone Number [facility] [place] [address] * POC, GLUCOSE (06/08/2024 8:27 PM EST) Glucometer, POC 176 65 - 199 mg/dL 06/08/2024 8:[address] [facility] Comment:Supplemental ranges: <140 mg/dL before meals <180 mg/dL all other times of the day. Blood CAPILLARY BLOOD / Unknown 06/08/2024 8:27 PM EST 06/08/2024 8:28 PM EST Melida Valdes MD POINT OF CARE TEST O NIKA Performing Organization Address [facility] Co de Phone Number [facility] [place] [address] * POC, GLUCOSE (06/08/2024 4:16 PM EST) Glucometer, POC 159 65 - 199 mg/dL 06/08/2024 4:[address] [facility] Comment:Supplemental ranges: <140 mg/dL before meals <180 mg/dL all other times of the day. Blood CAPILLARY BLOOD / Unknown 06/08/2024 4:16 PM EST 06/08/2024 4:16 PM EST Melida Valdes MD POINT OF CARE TEST O NIKA Performing Organization Address City/[facility]/ZIP Co de Phone Number [facility] [place] [address] * (ABNORMAL) POC, GLUCOSE (06/08/2024 12:35 PM EST) Glucometer, POC 226(H) 65 - 199 mg/dL 06/08/2024 12:[address] [facility] Comment:Supplemental ranges: <140 mg/dL before meals <180 mg/dL all other times of the day. Blood CAPILLARY BLOOD / Unknown 06/08/2024 12:35 PM EST 06/08/2024 12:35 PM EST Melida Valdes MD POINT OF CARE TEST O RDERAPIETER Performing Organization Address City/[facility]/ZIP Co de Phone Number [facility] [place] [address] * POC, GLUCOSE (06/08/2024 8:10 AM EST) Glucometer, POC 190 65 - 199 mg/dL 06/08/2024 8:[address] [facility] Comment:Supplemental ranges: <140 mg/dL before meals <180 mg/dL all other times of the day. Blood CAPILLARY BLOOD / Unknown 06/08/2024 8:10 AM EST 06/08/2024 8:14 AM EST Melida Valdes MD POINT OF CARE TEST O RDERAPIETER Performing Organization Address City/[facility]/ZIP Co de Phone Number [facility] [place] [address] * POC, GLUCOSE (06/08/2024 4:09 AM EST) Glucometer, POC 151 65 - 199 mg/dL 06/08/2024 4:[address] [facility] Comment:Supplemental ranges: <140 mg/dL before meals <180 mg/dL all other times of the day. Blood CAPILLARY BLOOD / Unknown 06/08/2024 4:09 AM EST 06/08/2024 4:10 AM EST Melida Valdes MD POINT OF CARE TEST O RDERAPIETER [facility] [place] [address] * Heparin (unfractionated) Level (06/08/2024 3:21 AM EST) [facility] UF Heparin 0.46 IU/mL 06/08/2024 3:[address] [facility] Comment: Heparin (anti-Xa) levels should [...] EST Shahnaz Scanlon MD HEMATOLOGY ORDERABLE S [facility] [place] [address] * (ABNORMAL) CBC (with Diff) (06/08/2024 3:21 AM EST) Pathologist [facility] White Blood Cell 9.92(H) 4.00 - 9.50 x10(3)/mc L 06/08/2024 3:[address] [facility] Red Blood Cell 5.09 4.58 - 5.54 x10(6)/mc L 06/08/2024 3:[address] [facility] Hemoglobin 15.1 13.7 - 16.5 g/dL 06/08/2024 3:34 AM [facility] Hematocrit 46.7 40.5 - 48.5 % 06/08/2024 3:34 AM [facility] Mean Cell Volume 91.7 82.9 - 93.1 fL 06/08/2024 3:34 AM [facility] Mean Cell Hemoglobin 29.7 27.5 - 32.1 pg 06/08/2024 3:34 AM [facility] Mean Cell Hemoglobin Concentration 32.3 32.0 - 35.7 g/dL 06/08/2024 3:34 AM [facility] Platelet 203 145 - 357 x10(3)/mc L 06/08/2024 3:34 AM [facility] Mean Platelet Volume 9.4 7.6 - 12.9 fL 06/08/2024 3:34 AM [facility] RDW Standard Deviation 46.9(H) 36.0 - 45.0 fL 06/08/2024 3:34 AM [facility] RDW coefficient of variation 13.8 11.4 - 13.8 % 06/08/2024 3:34 AM [facility] NRBC% auto 0.0 % 06/08/2024 3:34 AM [facility] NRBC Absolute <0.01 <0.01 x10(3)/mc L 06/08/2024 3:34 AM [facility] Neutrophil % 56.8 % 06/08/2024 3:34 AM [facility] Neutrophil Absolute (ANC) - Automated 5.63 1.70 - 6.10 x10(3)/mc L 06/08/2024 3:34 AM [facility] Lymph % 27.3 % 06/08/2024 3:34 AM [facility] Lymph Absolute 2.71 0.90 - 3.20 x10(3)/mc L 06/08/2024 3:34 AM [facility] Monocyte % 11.2 % 06/08/2024 3:34 AM [facility] Monocyte Absolute 1.11(H) 0.30 - 0.90 x10(3)/mc L 06/08/2024 3:34 AM [facility] Eos % 3.4 % 06/08/2024 3:34 AM [facility] Eos Absolute 0.34 0.00 - 0.40 x10(3)/mc L 06/08/2024 3:34 AM [facility] Basophil % 0.8 % 06/08/2024 3:34 AM [facility] Baso Absolute 0.08 0.00 - 0.10 x10(3)/mc L 06/08/2024 3:34 AM [facility] Immature Gran % 0.5 % 3:34 AM [facility] Immature Gran Absolute 0.05(H) 0.00 - 0.04 x10(3)/mc L 06/08/2024 3:34 AM [facility] Blood VENOUS BLOOD SPECIMEN / Unknown Venipuncture / Unknown 06/08/2024 3:21 AM EST 06/08/2024 3:27 AM EST Shahnaz Scanlon MD HEMATOLOGY ORDERABLE S [facility] [place] [address] * Magnesium (06/08/2024 3:21 AM EST) Magnesium 0.84 0.69 - 1.07 mMol/L 06/08/2024 3:59 AM [facility] Blood VENOUS BLOOD SPECIMEN / Unknown Venipuncture / Unknown 06/08/2024 3:21 AM EST 06/08/2024 3:27 AM EST Shahnaz Scanlon MD CHEMISTRY ORDERABLES [facility] [place] [address] * (ABNORMAL) Basic Metabolic Panel (06/08/2024 3:21 AM EST) Glucose 173 65 - 199 mg/dL 06/08/2024 3:59 AM [facility] Comment:Glucose Concentratio n >=200 mg/dL plus symptoms is consistent with Diabetes Mellitus. Blood Urea Nitrogen 25(H) 10 - 20 mg/dL 06/08/2024 3:59 AM [facility] Creatinine 1.09 0.80 - 1.50 mg/dL 06/08/2024 3:59 AM [facility] Sodium 135 135 - 145 mMol/L 06/08/2024 3:59 AM [facility] Potassium 4.2 3.5 - 5.0 mMol/L 06/08/2024 3:59 AM [facility] Chloride 98 98 - 107 mMol/L 06/08/2024 3:59 AM [facility] Carbon Dioxide 25 22 - 31 mMol/L 06/08/2024 3:59 AM [facility] Anion Gap 12 5 - 15 mMol/L 06/08/2024 3:59 AM [facility] Calcium 9.4 8.5 - 10.5 mg/dL 06/08/2024 3:59 AM [facility] Est Glomerular Filtration Rate - Male 74 mL/min/1. 73 m?? 06/08/2024 3:59 AM [facility] [...] Scanlon MD CHEMISTRY ORDERABLES Performing Organization Address [facility]/ZIP Co de Phone Number [facility] [place] [address] * POC, GLUCOSE (06/07/2024 11:57 PM EST) Glucometer, POC 188 65 - 199 mg/dL 06/07/2024 11:[address] [facility] Comment:Supplemental ranges: <140 mg/dL before meals <180 mg/dL all other times of the day. Blood CAPILLARY BLOOD / Unknown 06/07/2024 11:57 PM EST 06/07/2024 11:58 PM EST Melida Valdes MD POINT OF CARE TEST O NIKA Performing Organization Address [facility] Co de Phone Number [facility] [place] [address] * POC, GLUCOSE (06/07/2024 8:05 PM EST) Glucometer, POC 118 65 - 199 mg/dL 06/07/2024 8:[address] [facility] Comment:Supplemental ranges: <140 mg/dL before meals <180 mg/dL all other times of the day. Blood CAPILLARY BLOOD / Unknown 06/07/2024 8:05 PM EST 06/07/2024 8:06 PM EST Melida Valdes MD POINT OF CARE TEST O NIKA Performing Organization Address [facility] Co de Phone Number [facility] [place] [address] * Potassium (06/07/2024 5:22 PM EST) Potassium 4.6 3.5 - 5.0 mMol/L 06/07/2024 5:[address] [facility] Blood VENOUS BLOOD SPECIMEN / Unknown Venipuncture / Unknown 06/07/2024 5:22 PM EST 06/07/2024 5:26 PM EST Shahnaz Scanlon MD CHEMISTRY ORDERABLES Performing Organization Address [facility] Co de Phone Number [facility] [place] [address] * POC, GLUCOSE (06/07/2024 4:31 PM EST) Glucometer, POC 174 65 - 199 mg/dL 06/07/2024 4:[address] [facility] Comment:Supplemental ranges: <140 mg/dL before meals <180 mg/dL all other times of the day. Blood CAPILLARY BLOOD / Unknown 06/07/2024 4:31 PM EST 06/07/2024 4:34 PM EST Meilda Valdes MD POINT OF CARE TEST O RDERABLES Performing Organization Address [facility] Co de Phone Number [facility] [place] [address] * MRI Cardiac Morphology Function wwo Contrast (06/07/2024 1:10 PM EST) WORKSTATION ID [id number] RAD Anatomical Region Laterality Modality Magnetic Resonan [...] - Mildly dilated left ventricle size with awlaeqyj-zp-jopdqsll decreased LV systolic function. ??LV ejection fraction [...] have questions please contact the health healthcare insurance sales agent that requested your imaging first. ? Electronically signed by: Kriss Alonzo MD, [facility] ([phone]), at 06/07/2024 2:41 PM Narrative 06/07/2024 2:41 [...] VENTRICLE: Mildly dilated left ventricle size with rvyymtto-mb-fxqhydif decreased LV systolic function. ??LV ejection fraction [...] VENTRICLE: Mildly dilated left ventricle size with vawnabxp-tc-jclweakq decreasedLV systolic function. LV ejection fraction is [...] - Mildly dilated left ventricle size with dlslusex-mk-bqytiezm decreasedLV systolic function. LV ejection fraction is [...] who have questions please contactthe health healthcare insurance sales agent that requested your imaging first. Delroy Fofana MD IMG MRI ORDERABLES * (ABNORMAL) POC, GLUCOSE (06/07/2024 11:05 AM EST) Glucometer, POC 221(H) 65 - 199 mg/dL 06/07/2024 11:[address] [facility] Comment:Supplemental ranges: <140 mg/dL before meals <180 mg/dL all other times of the day. Blood CAPILLARY BLOOD / Unknown 06/07/2024 11:05 AM EST 06/07/2024 11:06 AM EST Melida Valdes MD POINT OF CARE TEST O NIKA Performing Organization Address City/[facility] Co de Phone Number [facility] [place] [address] * (ABNORMAL) POC, GLUCOSE (06/07/2024 11:03 AM EST) [facility] Signature Glucometer, POC 250(H) 65 - 199 mg/dL 06/07/2024 11:[address] [facility] Comment:Supplemental ranges: <140 mg/dL before meals <180 mg/dL all other times of the day. Blood CAPILLARY BLOOD / Unknown 06/07/2024 11:03 AM EST 06/07/2024 11:04 AM EST Melida Valdes MD POINT OF CARE TEST Abimael MAHER Performing Organization Address City/[facility] Co de Phone Number [facility] [place] [address] * Potassium (06/07/2024 9:44 AM EST) [facility] Potassium 4.7 3.5 - 5.0 mMol/L 06/07/2024 10:[address] [facility] Blood VENOUS BLOOD SPECIMEN / Unknown Venipuncture / Unknown 06/07/2024 9:44 AM EST 06/07/2024 9:57 AM EST Shahnaz Scanlon MD CHEMISTRY ORDERABLES Performing Organization Address [facility] Co de Phone Number [facility] [place] [address] * POC, GLUCOSE (06/07/2024 7:45 AM EST) Glucometer, POC 175 65 - 199 mg/dL 06/07/2024 7:[address] [facility] Comment:Supplemental ranges: <140 mg/dL before meals <180 mg/dL all other times of the day. Blood CAPILLARY BLOOD / Unknown 06/07/2024 7:45 AM EST 06/07/2024 7:46 AM EST Melida Valdes MD POINT OF CARE TEST O RDERABLES Performing Organization Address [facility] Co de Phone Number [facility] [place] [address] * XR Chest PA & Lateral (Generic) (06/07/2024 7:03 AM EST) WORKSTATION ID [id number] DH RAD Anatomical Region Laterality Modality Chest [...] have questions please contact the health healthcare insurance sales agent that requested your imaging first. ? Electronically signed by: Stuart Aponte MD, [facility] ??([phone]), at 06/07/2024 10:45 AM Narrative 06/07/2024 10:45 [...] who have questions please contactthe health healthcare insurance sales agent that requested your imaging first. Electronically signed by: Stuart Aponte MD, [facility]([phone]), at 06/07/2024 10:45 AM Shahnaz Scanlon MD IMG DX ORDERABLES * POC, GLUCOSE (06/07/2024 4:25 AM EST) [facility] Glucometer, POC 127 65 - 199 mg/dL 06/07/2024 4:[address] [facility] Comment:Supplemental ranges: <140 mg/dL before meals <180 mg/dL all other times of the day. Blood CAPILLARY BLOOD / Unknown 06/07/2024 4:25 AM EST 06/07/2024 4:26 AM EST Melida Valdes MD POINT OF CARE TEST O RDERABLES Performing Organization Address [facility] Co de Phone Number [facility] [place] [address] * Heparin (unfractionated) Level (06/07/2024 2:41 AM EST) [facility] UF Heparin 0.45 IU/mL 06/07/2024 3:[address] [facility] Comment: Heparin (anti-Xa) levels should [...] MD HEMATOLOGY ORDERABLE S Performing Organization Address [facility]/ZIP Co de Phone Number [facility] [place] [address] * (ABNORMAL) CBC (with Diff) (06/07/2024 2:41 AM EST) [facility] Signature White Blood Cell 10.06(H) 4.00 - 9.50 x10(3)/mc L 06/07/2024 2:58 AM [facility] Red Blood Cell 5.02 4.58 - 5.54 x10(6)/mc L 06/07/2024 2:58 AM [facility] Hemoglobin 14.8 13.7 - 16.5 g/dL 06/07/2024 2:58 AM [facility] Hematocrit 46.2 40.5 - 48.5 % 06/07/2024 2:58 AM [facility] Mean Cell Volume 92.0 82.9 - 93.1 fL 06/07/2024 2:58 AM [facility] Mean Cell Hemoglobin 29.5 27.5 - 32.1 pg 06/07/2024 2:58 AM [facility] Mean Cell Hemoglobin Concentration 32.0 32.0 - 35.7 g/dL 06/07/2024 2:58 AM [facility] Platelet 202 145 - 357 x10(3)/mc L 06/07/2024 2:58 AM [facility] Mean Platelet Volume 9.6 7.6 - 12.9 fL 06/07/2024 2:58 AM [facility] RDW Standard Deviation 46.3(H) 36.0 - 45.0 fL 06/07/2024 2:58 AM [facility] RDW coefficient of variation 13.8 11.4 - 13.8 % 06/07/2024 2:58 AM [facility] NRBC% auto 0.0 % 06/07/2024 2:58 AM [facility] NRBC Absolute <0.01 <0.01 x10(3)/mc L 06/07/2024 2:58 AM [facility] Neutrophil % 55.9 % 06/07/2024 2:58 AM [facility] [facility] Neutrophil Absolute (ANC) - Automated 5.62 1.70 - 6.10 x10(3)/mc L 06/07/2024 2:58 AM [facility] Lymph % 28.3 % 06/07/2024 2:58 AM [facility] Lymph Absolute 2.85 0.90 - 3.20 x10(3)/mc L 06/07/2024 2:58 AM [facility] Monocyte % 10.8 % 06/07/2024 2:58 AM [facility] Monocyte Absolute 1.09(H) 0.30 - 0.90 x10(3)/mc L 06/07/2024 2:58 AM [facility] Eos % 3.6 % 06/07/2024 2:58 AM [facility] Eos Absolute 0.36 0.00 - 0.40 x10(3)/mc L 06/07/2024 2:58 AM [facility] Basophil % 0.8 % 06/07/2024 2:58 AM [facility] Baso Absolute 0.08 0.00 - 0.10 x10(3)/mc L 06/07/2024 2:58 AM [facility] Immature Gran % 0.6 % 2:58 AM [facility] Immature Gran Absolute 0.06(H) 0.00 - 0.04 x10(3)/mc L 06/07/2024 2:58 AM [facility] Blood VENOUS BLOOD SPECIMEN / Unknown Venipuncture / Unknown 06/07/2024 2:41 AM EST 06/07/2024 2:52 AM EST Shahnaz Scanlon MD HEMATOLOGY ORDERABLE S [facility] [place] [address] * Magnesium (06/07/2024 2:41 AM EST) Magnesium 0.92 0.69 - 1.07 mMol/L 06/07/2024 3:[address] [facility] Blood VENOUS BLOOD SPECIMEN / Unknown Venipuncture / Unknown 06/07/2024 2:41 AM EST 06/07/2024 2:51 AM EST Shahnaz Scanlon MD CHEMISTRY ORDERABLES [facility] [place] [address] * (ABNORMAL) Basic Metabolic Panel (06/07/2024 2:41 AM EST) Glucose 140 65 - 199 mg/dL 06/07/2024 3:25 AM [facility] Comment:Glucose Concentratio n >=200 mg/dL plus symptoms is consistent with Diabetes Mellitus. Blood Urea Nitrogen 26(H) 10 - 20 mg/dL 06/07/2024 3:25 AM [facility] Creatinine 1.06 0.80 - 1.50 mg/dL 06/07/2024 3:25 AM [facility] Sodium 136 135 - 145 mMol/L 06/07/2024 3:25 AM [facility] Potassium 3.8 3.5 - 5.0 mMol/L 06/07/2024 3:25 AM [facility] Chloride 98 98 - 107 mMol/L 06/07/2024 3:25 AM [facility] Carbon Dioxide 28 22 - 31 mMol/L 06/07/2024 3:25 AM [facility] Anion Gap 10 5 - 15 mMol/L 06/07/2024 3:25 AM [facility] Calcium 9.4 8.5 - 10.5 mg/dL 06/07/2024 3:25 AM [facility] Est Glomerular Filtration Rate - Male 77 mL/min/1. 73 m?? 06/07/2024 3:25 AM [facility] [...] Scanlon MD CHEMISTRY ORDERABLES Performing Organization Address [facility] Co de Phone Number [facility] [place] [address] * POC, GLUCOSE (06/07/2024 12:08 AM EST) Glucometer, POC 182 65 - 199 mg/dL 06/07/2024 12:[address] [facility] Comment:Supplemental ranges: <140 mg/dL before meals <180 mg/dL all other times of the day. Blood CAPILLARY BLOOD / Unknown 06/07/2024 12:08 AM EST 06/07/2024 12:09 AM EST Melida Valdes MD POINT OF CARE TEST O RDERABLES Performing Organization Address [facility]/ZIP Co de Phone Number [facility] [place] [address] * POC, GLUCOSE (06/06/2024 8:18 PM EST) Glucometer, POC 143 65 - 199 mg/dL 06/06/2024 8:[address] [facility] Comment:Supplemental ranges: <140 mg/dL before meals <180 mg/dL all other times of the day. Blood CAPILLARY BLOOD / Unknown 06/06/2024 8:18 PM EST 06/06/2024 8:19 PM EST Melida Valdes MD POINT OF CARE TEST O NIKA Performing Organization Address [facility] Co de Phone Number [facility] [place] [address] * POC, GLUCOSE (06/06/2024 3:39 PM EST) Glucometer, POC 147 65 - 199 mg/dL 06/06/2024 3:[address] [facility] Comment:Supplemental ranges: <140 mg/dL before meals <180 mg/dL all other times of the day. Blood CAPILLARY BLOOD / Unknown 06/06/2024 3:39 PM EST 06/06/2024 3:40 PM EST Melida Valdes MD POINT OF CARE TEST O RALPHERAPIETER Performing Organization Address [facility] Co de Phone Number [facility] [place] [address] * Potassium (06/06/2024 2:37 PM EST) Potassium 4.3 3.5 - 5.0 mMol/L 06/06/2024 3:[address] [facility] Blood VENOUS BLOOD SPECIMEN / Unknown Venipuncture / Unknown 06/06/2024 2:37 PM EST 06/06/2024 2:42 PM EST Shahnaz Scanlon MD CHEMISTRY ORDERABLES Performing Organization Address [facility] Co de Phone Number [facility] [place] [address] * (ABNORMAL) POC, GLUCOSE (06/06/2024 1:39 PM EST) Glucometer, POC 317(H) 65 - 199 mg/dL 06/06/2024 1:[address] [facility] Comment:Supplemental ranges: <140 mg/dL before meals <180 mg/dL all other times of the day. Blood CAPILLARY BLOOD / Unknown 06/06/2024 1:39 PM EST 06/06/2024 1:41 PM EST Melida Valdes MD POINT OF CARE TEST O NIKA Performing Organization Address City/[facility] Co de Phone Number [facility] [place] [address] * (ABNORMAL) POC, GLUCOSE (06/06/2024 11:34 AM EST) Glucometer, POC 264(H) 65 - 199 mg/dL 06/06/2024 11:[address] [facility] Comment:Supplemental ranges: <140 mg/dL before meals <180 mg/dL all other times of the day. Blood CAPILLARY BLOOD / Unknown 06/06/2024 11:34 AM EST 06/06/2024 11:35 AM EST Melida Valdes MD POINT OF CARE TEST Abimael MAHER Performing Organization Address [facility] Co de Phone Number [facility] [place] [address] * Potassium (06/06/2024 10:17 AM EST) Potassium 4.3 3.5 - 5.0 mMol/L 06/06/2024 10:[address] [facility] Blood VENOUS BLOOD SPECIMEN / Unknown Venipuncture / Unknown 06/06/2024 10:17 AM EST 06/06/2024 10:22 AM EST Shahnaz Scanlon MD CHEMISTRY ORDERABLES Performing Organization Address City/[facility] Co de Phone Number [facility] [place] [address] * POC, GLUCOSE (06/06/2024 7:57 AM EST) Glucometer, POC 195 65 - 199 mg/dL 06/06/2024 8:[address] [facility] Comment:Supplemental ranges: <140 mg/dL before meals <180 mg/dL all other times of the day. Blood CAPILLARY BLOOD / Unknown 06/06/2024 7:57 AM EST 06/06/2024 8:03 AM EST Melida Valdes MD POINT OF CARE TEST O NIKA Performing Organization Address [facility]/ZIP Co de Phone Number [facility] [place] [address] * POC, GLUCOSE (06/06/2024 6:53 AM EST) Glucometer, POC 187 65 - 199 mg/dL 06/06/2024 6:[address] [facility] Comment:Supplemental ranges: <140 mg/dL before meals <180 mg/dL all other times of the day. Blood CAPILLARY BLOOD / Unknown 06/06/2024 6:53 AM EST 06/06/2024 6:54 AM EST eMlida Valdes MD POINT OF CARE TEST Abimael MAHER Performing Organization Address [facility] Co de Phone Number [facility] [place] [address] * (ABNORMAL) Hemoglobin A1c (06/06/2024 3:33 AM EST) Hemoglobin A1c 7.1(H) 4.3 - 5.6 % 06/06/2024 1:[address] [facility] Comment: Per ADA guidelines, without [...] red blood cell turnover may not be outside dealer sales representative of glycemic control. Reference Interval: 4.3 - 5.6% 5.7 - 6.4%: Consistent with prediabetes >=6.5%: Consistent with diagnosis of diabetes mellitus Estimated Average Glucose 157 mg/dL 06/06/2024 1:[address] [facility] Blood VENOUS BLOOD SPECIMEN / Unknown Venipuncture / Unknown 06/06/2024 3:33 AM EST 06/06/2024 3:48 AM EST Alejandra Baumann APRN CHEMISTRY ORDERAB LES Performing Organization Address City/[facility]/ZIP Co de Phone Number [facility] [place] [address] * Heparin (unfractionated) Level (06/06/2024 3:33 AM EST) UF Heparin 0.36 IU/mL 06/06/2024 3:[address] [facility] Comment: Heparin (anti-Xa) levels should [...] ORDERABLE S Performing Organization Address City/[facility]/ZIP Co de Phone Number [facility] [place] [address] * (ABNORMAL) CBC (with Diff) (06/06/2024 3:33 AM EST) White Blood Cell 9.81(H) 4.00 - 9.50 x10(3)/mc L 06/06/2024 3:54 AM [facility] Red Blood Cell 4.91 4.58 - 5.54 x10(6)/mc L 06/06/2024 3:54 AM [facility] Hemoglobin 14.6 13.7 - 16.5 g/dL 06/06/2024 3:54 AM [facility] Hematocrit 45.4 40.5 - 48.5 % 06/06/2024 3:54 AM [facility] Mean Cell Volume 92.5 82.9 - 93.1 fL 06/06/2024 3:54 AM [facility] Mean Cell Hemoglobin 29.7 27.5 - 32.1 pg 06/06/2024 3:54 AM [facility] Mean Cell Hemoglobin Concentration 32.2 32.0 - 35.7 g/dL 06/06/2024 3:54 AM [facility] Platelet 199 145 - 357 x10(3)/mc L 06/06/2024 3:54 AM [facility] Mean Platelet Volume 9.5 7.6 - 12.9 fL 06/06/2024 3:54 AM [facility] RDW Standard Deviation 47.2(H) 36.0 - 45.0 fL 06/06/2024 3:54 AM [facility] RDW coefficient of variation 13.9(H) 11.4 - 13.8 % 06/06/2024 3:54 AM [facility] NRBC% auto 0.0 % 06/06/2024 3:54 AM [facility] NRBC Absolute <0.01 <0.01 x10(3)/mc L 06/06/2024 3:54 AM [facility] Neutrophil % 56.8 % 06/06/2024 3:54 AM [facility] Neutrophil Absolute (ANC) - Automated 5.57 1.70 - 6.10 x10(3)/mc L 06/06/2024 3:54 AM [facility] Lymph % 27.6 % 06/06/2024 3:54 AM [facility] Lymph Absolute 2.71 0.90 - 3.20 x10(3)/mc L 06/06/2024 3:54 AM [facility] Monocyte % 11.1 % 06/06/2024 3:54 AM [facility] Monocyte Absolute 1.09(H) 0.30 - 0.90 x10(3)/mc L 06/06/2024 3:54 AM [facility] Eos % 3.0 % 06/06/2024 3:54 AM [facility] Eos Absolute 0.29 0.00 - 0.40 x10(3)/mc L 06/06/2024 3:54 AM [facility] Basophil % 0.9 % 06/06/2024 3:54 AM [facility] Baso Absolute 0.09 0.00 - 0.10 x10(3)/mc L 06/06/2024 3:54 AM [facility] Immature Gran % 0.6 % 3:54 AM [facility] Immature Gran Absolute 0.06(H) 0.00 - 0.04 x10(3)/mc L 06/06/2024 3:54 AM [facility] Blood VENOUS BLOOD SPECIMEN / Unknown Venipuncture / Unknown 06/06/2024 3:33 AM EST 06/06/2024 3:48 AM EST Shahnaz Scanlon MD HEMATOLOGY ORDERABLE S [facility] [place] [address] * Magnesium (06/06/2024 3:33 AM EST) Magnesium 0.92 0.69 - 1.07 mMol/L 06/06/2024 4:17 AM [facility] Blood VENOUS BLOOD SPECIMEN / Unknown Venipuncture / Unknown 06/06/2024 3:33 AM EST 06/06/2024 3:47 AM EST Shahnaz Scanlon MD CHEMISTRY ORDERABLES [facility] [place] [address] * (ABNORMAL) Basic Metabolic Panel (06/06/2024 3:33 AM EST) Glucose 190 65 - 199 mg/dL 06/06/2024 4:17 AM [facility] Comment:Glucose Concentratio n >=200 mg/dL plus symptoms is consistent with Diabetes Mellitus. Blood Urea Nitrogen 27(H) 10 - 20 mg/dL 06/06/2024 4:17 AM [facility] Creatinine 1.12 0.80 - 1.50 mg/dL 06/06/2024 4:17 AM [facility] Sodium 136 135 - 145 mMol/L 06/06/2024 4:17 AM [facility] Potassium 4.0 3.5 - 5.0 mMol/L 06/06/2024 4:17 AM [facility] Chloride 97(L) 98 - 107 mMol/L 06/06/2024 4:17 AM [facility] Carbon Dioxide 26 22 - 31 mMol/L 06/06/2024 4:17 AM [facility] Anion Gap 13 5 - 15 mMol/L 06/06/2024 4:17 AM [facility] Calcium 9.1 8.5 - 10.5 mg/dL 06/06/2024 4:17 AM [facility] Est Glomerular Filtration Rate - Male 72 mL/min/1. 73 m?? 06/06/2024 4:17 AM [facility] [...] Scanlon MD CHEMISTRY ORDERABLES Performing Organization Address [facility] Co de Phone Number [facility] [place] [address] * (ABNORMAL) POC, GLUCOSE (06/05/2024 10:31 PM EDT) Glucometer, POC 238(H) 65 - 199 mg/dL 06/05/2024 10:[address] [facility] Comment:Supplemental ranges: <140 mg/dL before meals <180 mg/dL all other times of the day. Blood CAPILLARY BLOOD / Unknown 06/05/2024 10:31 PM EDT 06/05/2024 10:31 PM EDT Melida Valdes MD POINT OF CARE TEST O NIKA Performing Organization Address [facility] Co de Phone Number [facility] [place] [address] * (ABNORMAL) POC, GLUCOSE (06/05/2024 4:22 PM EDT) Glucometer, POC 205(H) 65 - 199 mg/dL 06/05/2024 4:[address] [facility] Comment:Supplemental ranges: <140 mg/dL before meals <180 mg/dL all other times of the day. Blood CAPILLARY BLOOD / Unknown 06/05/2024 4:22 PM EDT 06/05/2024 4:23 PM EDT Melida Valdes MD POINT OF CARE TEST O RDERABLES Performing Organization Address City/[facility]/ZIP Co de Phone Number [facility] [place] [address] * (ABNORMAL) POC, GLUCOSE (06/05/2024 11:34 AM EDT) Glucometer, POC 211(H) 65 - 199 mg/dL 06/05/2024 11:[address] [facility] Comment:Supplemental ranges: <140 mg/dL before meals <180 mg/dL all other times of the day. Blood CAPILLARY BLOOD / Unknown 06/05/2024 11:34 AM EDT 06/05/2024 11:34 AM EDT Melida Valdes MD POINT OF CARE TEST O RDERABLES Performing Organization Address City/[facility]/ZIP Co de Phone Number [facility] [place] [address] * Potassium (06/05/2024 9:04 AM EDT) Potassium 4.3 3.5 - 5.0 mMol/L 06/05/2024 9:[address] [facility] Blood VENOUS BLOOD SPECIMEN / Unknown Venipuncture / Unknown 06/05/2024 9:04 AM EDT 06/05/2024 9:21 AM EDT Shahnaz Scanlon MD CHEMISTRY ORDERABLES Performing Organization Address City/[facility]/ZIP Co de Phone Number [facility] [place] [address] * POC, GLUCOSE (06/05/2024 7:27 AM EDT) Glucometer, POC 166 65 - 199 mg/dL 06/05/2024 7:[address] [facility] Comment:Supplemental ranges: <140 mg/dL before meals <180 mg/dL all other times of the day. Blood CAPILLARY BLOOD / Unknown 06/05/2024 7:27 AM EDT 06/05/2024 7:27 AM EDT Melida Valdes MD POINT OF CARE TEST O RDERABLES Performing Organization Address [facility] Co de Phone Number [facility] [place] [address] * Heparin (unfractionated) Level (06/05/2024 3:44 AM EDT) UF Heparin 0.44 IU/mL 06/05/2024 4:[address] [facility] Comment: Heparin (anti-Xa) levels should [...] ORDERABLE S Performing Organization Address City/[facility]/ZIP Co de Phone Number [facility] [place] [address] * (ABNORMAL) CBC (with Diff) (06/05/2024 3:44 AM EDT) White Blood Cell 10.83(H) 4.00 - 9.50 x10(3)/mc L 06/05/2024 3:[address] [facility] Red Blood Cell 5.07 4.58 - 5.54 x10(6)/mc L 06/05/2024 3:56 AM [facility] Hemoglobin 15.3 13.7 - 16.5 g/dL 06/05/2024 3:56 AM [facility] Hematocrit 46.8 40.5 - 48.5 % 06/05/2024 3:56 AM [facility] Mean Cell Volume 92.3 82.9 - 93.1 fL 06/05/2024 3:56 AM [facility] Mean Cell Hemoglobin 30.2 27.5 - 32.1 pg 06/05/2024 3:56 AM [facility] Mean Cell Hemoglobin Concentration 32.7 32.0 - 35.7 g/dL 06/05/2024 3:56 AM [facility] Platelet 219 145 - 357 x10(3)/mc L 06/05/2024 3:56 AM [facility] Mean Platelet Volume 9.4 7.6 - 12.9 fL 06/05/2024 3:56 AM [facility] RDW Standard Deviation 46.7(H) [...] 3.20 x10(3)/mc L 06/05/2024 3:[address] [facility] Monocyte % 10.9 % 06/05/2024 3:[address] [facility] Monocyte Absolute 1.18(H) 0.30 - 0.90 x10(3)/mc L 06/05/2024 3:[address] [facility] Eos % 2.2 % 06/05/2024 3:[address] [facility] Eos Absolute 0.24 0.00 - 0.40 x10(3)/mc L 06/05/2024 3:[address] [facility] Basophil % 0.8 % 06/05/2024 3:[address] [facility] Baso Absolute 0.09 0.00 - 0.10 x10(3)/mc L 06/05/2024 3:[address] [facility] Immature Gran % 0.6 % 3:[address] [facility] Immature Gran Absolute 0.07(H) 0.00 - 0.04 x10(3)/mc L 06/05/2024 3:[address] [facility] Blood VENOUS BLOOD SPECIMEN / Unknown Venipuncture / Unknown 06/05/2024 3:44 AM EDT 06/05/2024 3:50 AM EDT Shahnaz Scanlon MD HEMATOLOGY ORDERABLE S [facility] [place] [address] * Magnesium (06/05/2024 3:44 AM EDT) Magnesium 0.92 0.69 - 1.07 mMol/L 06/05/2024 4:[address] [facility] Blood VENOUS BLOOD SPECIMEN / Unknown Venipuncture / Unknown 06/05/2024 3:44 AM EDT 06/05/2024 3:50 AM EDT Shahnaz Scanlon MD CHEMISTRY ORDERABLES [facility] [place] [address] * (ABNORMAL) Basic Metabolic Panel (06/05/2024 3:44 AM EDT) Glucose 155 65 - 199 mg/dL 06/05/2024 4:[address] [facility] Comment:Glucose Concentratio n >=200 mg/dL plus symptoms is consistent with Diabetes Mellitus. Blood Urea Nitrogen 25(H) 10 - 20 mg/dL 06/05/2024 4:20 AM [facility] Creatinine 1.16 0.80 - 1.50 mg/dL 06/05/2024 4:20 AM [facility] Sodium 136 135 - 145 mMol/L 06/05/2024 4:20 AM [facility] Potassium 3.9 3.5 - 5.0 mMol/L 06/05/2024 4:20 AM [facility] Chloride 95(L) 98 - 107 mMol/L 06/05/2024 4:20 AM [facility] Carbon Dioxide 29 22 - 31 mMol/L 06/05/2024 4:20 AM [facility] Anion Gap 12 5 - 15 mMol/L 06/05/2024 4:20 AM [facility] Calcium 9.2 8.5 - 10.5 mg/dL 06/05/2024 4:20 AM [facility] Est Glomerular Filtration Rate - Male 69 mL/min/1. 73 m?? 06/05/2024 4:20 AM [facility] [...] Scanlon MD CHEMISTRY ORDERABLES Performing Organization Address [facility] Co de Phone Number [facility] [place] [address] * Potassium (06/04/2024 10:34 PM EDT) Potassium 3.7 3.5 - 5.0 mMol/L 06/04/2024 11:[address] [facility] Blood VENOUS BLOOD SPECIMEN / Unknown Venipuncture / Unknown 06/04/2024 10:34 PM EDT 06/04/2024 10:39 PM EDT Shahnaz Scanlon MD CHEMISTRY ORDERABLES Performing Organization Address [facility] Co de Phone Number [facility] [place] [address] * POC, GLUCOSE (06/04/2024 7:43 PM EDT) Glucometer, POC 175 65 - 199 mg/dL 06/04/2024 7:[address] [facility] Comment:Supplemental ranges: <140 mg/dL before meals <180 mg/dL all other times of the day. Blood CAPILLARY BLOOD / Unknown 06/04/2024 7:43 PM EDT 06/04/2024 7:43 PM EDT Melida Valdes MD POINT OF CARE TEST O RDERABLES Performing Organization Address City/[facility]/ZIP Co de Phone Number [facility] [place] [address] * Potassium (06/04/2024 4:35 PM EDT) Potassium 4.0 3.5 - 5.0 mMol/L 06/04/2024 5:[address] [facility] Blood VENOUS BLOOD SPECIMEN / Unknown Venipuncture / Unknown 06/04/2024 4:35 PM EDT 06/04/2024 4:40 PM EDT Shahnaz Scanlon MD CHEMISTRY ORDERABLES [facility] [place] [address] * POC, GLUCOSE (06/04/2024 3:26 PM EDT) Glucometer, POC 154 65 - 199 mg/dL 06/04/2024 3:[address] [facility] Comment:Supplemental ranges: <140 mg/dL before meals <180 mg/dL all other times of the day. Blood CAPILLARY BLOOD / Unknown 06/04/2024 3:26 PM EDT 06/04/2024 3:27 PM EDT Melida Valdes MD POINT OF CARE TEST O RDERABLES [facility] [place] [address] * POC, GLUCOSE (06/04/2024 11:09 AM EDT) Glucometer, POC 188 65 - 199 mg/dL 06/04/2024 11:[address] [facility] Comment:Supplemental ranges: <140 mg/dL before meals <180 mg/dL all other times of the day. Blood CAPILLARY BLOOD / Unknown 06/04/2024 11:09 AM EDT 06/04/2024 11:09 AM EDT Delroy Fofana MD POINT OF CARE TEST ORDERABLES Performing Organization Address [facility] Co de Phone Number [facility] [place] [address] * Heparin (unfractionated) Level (06/04/2024 10:41 AM EDT) UF Heparin 0.43 IU/mL 06/04/2024 11:[address] [facility] Comment: Heparin (anti-Xa) levels should [...] MD HEMATOLOGY ORDERABLE S Performing Organization Address [facility] Co de Phone Number [facility] [place] [address] * Potassium (06/04/2024 10:41 AM EDT) Potassium 4.0 3.5 - 5.0 mMol/L 06/04/2024 11:[address] [facility] Blood VENOUS BLOOD SPECIMEN / Unknown Venipuncture / Unknown 06/04/2024 10:41 AM EDT 06/04/2024 10:46 AM EDT Shahnaz Scanlon MD CHEMISTRY ORDERABLES Performing Organization Address [facility] Co de Phone Number [facility] [place] [address] * POC, GLUCOSE (06/04/2024 7:11 AM EDT) Glucometer, POC 182 65 - 199 mg/dL 06/04/2024 7:[address] [facility] Comment:Supplemental ranges: <140 mg/dL before meals <180 mg/dL all other times of the day. Blood CAPILLARY BLOOD / Unknown 06/04/2024 7:11 AM EDT 06/04/2024 7:12 AM EDT Delroy Fofana MD POINT OF CARE TEST ORDERABLES Performing Organization Address [facility] Co de Phone Number [facility] [place] [address] * Heparin (unfractionated) Level (06/04/2024 4:38 AM EDT) [facility] UF Heparin 0.41 IU/mL 06/04/2024 5:[address] [facility] Comment: Heparin (anti-Xa) levels should [...] EDT Shahnaz Scanlon MD HEMATOLOGY ORDERABLE S [facility] [place] [address] * (ABNORMAL) CBC (with Diff) (06/04/2024 4:38 AM EDT) White Blood Cell 11.45(H) 4.00 - 9.50 x10(3)/mc L 06/04/2024 5:[address] [facility] Red Blood Cell 5.35 4.58 - 5.54 x10(6)/mc L 06/04/2024 5:[address] [facility] Hemoglobin 16.0 13.7 - 16.5 g/dL 06/04/2024 5:[address] [facility] Hematocrit 49.6(H) 40.5 - 48.5 % 06/04/2024 5:[address] [facility] Mean Cell Volume 92.7 82.9 - 93.1 fL 06/04/2024 5:[address] [facility] Mean Cell Hemoglobin 29.9 27.5 - 32.1 pg 06/04/2024 5:[address] [facility] Mean Cell Hemoglobin Concentration 32.3 32.0 - 35.7 g/dL 06/04/2024 5:[address] [facility] Platelet 222 145 - 357 x10(3)/mc L 06/04/2024 5:[address] [facility] Mean Platelet Volume 9.5 7.6 - 12.9 fL 06/04/2024 5:[address] [facility] RDW Standard Deviation 47.6(H) 36.0 - 45.0 fL 06/04/2024 5:[address] [facility] RDW coefficient of variation 14.1(H) 11.4 - 13.8 % 06/04/2024 5:[address] [facility] NRBC% auto 0.0 % 06/04/2024 [...] - 0.40 x10(3)/mc L 06/04/2024 5:12 AM [facility] Basophil % 0.7 % 06/04/2024 5:12 AM [facility] Baso Absolute 0.08 0.00 - 0.10 x10(3)/mc L 06/04/2024 5:12 AM [facility] Immature Gran % 0.5 % 5:12 AM [facility] Immature Gran Absolute 0.06(H) 0.00 - 0.04 x10(3)/mc L 06/04/2024 5:12 AM [facility] Blood VENOUS BLOOD SPECIMEN / Unknown Venipuncture / Unknown 06/04/2024 4:38 AM EDT 06/04/2024 5:07 AM EDT Shahnaz Scanlon MD HEMATOLOGY ORDERABLE S [facility] [place] [address] * Magnesium (06/04/2024 4:38 AM EDT) Magnesium 0.84 0.69 - 1.07 mMol/L 06/04/2024 5:[address] [facility] Blood VENOUS BLOOD SPECIMEN / Unknown Venipuncture / Unknown 06/04/2024 4:38 AM EDT 06/04/2024 5:07 AM EDT Shahnaz Scanlon MD CHEMISTRY ORDERABLES Performing Organization Address [facility] Co de Phone Number [facility] [place] [address] * (ABNORMAL) Basic Metabolic Panel (06/04/2024 4:38 AM EDT) Glucose 118 65 - 199 mg/dL 06/04/2024 5:[address] [facility] Comment:Glucose Concentratio n >=200 mg/dL plus symptoms is consistent with Diabetes Mellitus. Blood Urea Nitrogen 22(H) 10 - 20 mg/dL 06/04/2024 5:[address] [facility] Creatinine 1.22 0.80 - 1.50 mg/dL 06/04/2024 5:[address] [facility] Sodium 137 135 - 145 mMol/L 06/04/2024 5:[address] [facility] Potassium 3.6 3.5 - 5.0 mMol/L 06/04/2024 5:[address] [facility] Chloride 97(L) 98 - 107 mMol/L 06/04/2024 5:[address] [facility] Carbon Dioxide 29 22 - 31 mMol/L 06/04/2024 5:35 AM EDT [facility] Anion Gap 11 5 - 15 mMol/L 06/04/2024 5:[address] [facility] Calcium 9.0 8.5 - 10.5 mg/dL 06/04/2024 5:[address] [facility] Est Glomerular Filtration Rate - Male 65 mL/min/1. 73 m?? 06/04/2024 5:[address] [facility] Comment: This patient's estimated GFR [...] AM EDT Shahnaz Scanlon MD CHEMISTRY ORDERABLES [facility] [place] [address] * Heparin (unfractionated) Level (06/03/2024 8:58 PM EDT) UF Heparin 0.27 IU/mL 06/03/2024 9:[address] [facility] Comment: Heparin (anti-Xa) levels should [...] MD HEMATOLOGY ORDERABLE S Performing Organization Address [facility] de Phone Number [facility] [place] [address] * POC, GLUCOSE (06/03/2024 8:05 PM EDT) Glucometer, POC 136 65 - 199 mg/dL 06/03/2024 8:[address] [facility] Comment:Supplemental ranges: <140 mg/dL before meals <180 mg/dL all other times of the day. Blood CAPILLARY BLOOD / Unknown 06/03/2024 8:05 PM EDT 06/03/2024 8:05 PM EDT Delroy Fofana MD POINT OF CARE TEST ORDERABLES Performing Organization Address [facility] de Phone Number [facility] [place] [address] * POC, GLUCOSE (06/03/2024 5:48 PM EDT) Glucometer, POC 191 65 - 199 mg/dL 06/03/2024 5:[address] [facility] Comment:Supplemental ranges: <140 mg/dL before meals <180 mg/dL all other times of the day. Blood CAPILLARY BLOOD / Unknown 06/03/2024 5:48 PM EDT 06/03/2024 5:49 PM EDT Delroy Fofana MD POINT OF CARE TEST ORDERABLES Performing Organization Address [facility]/ZIP Co de Phone Number [facility] [place] [address] * CT Chest wo Contrast (Generic) (06/03/2024 4:33 PM EDT) WORKSTATION ID [id number] RAD Anatomical Region Laterality Modality Chest Computed Tomogra phy Impressions 06/03/2024 4:47 PM EDT Cardiomegaly. Biventricular ICD leads in place. Thank you for letting us participate in the care of this patient. ??If you are a health care provider and have any questions regarding this report, please contact the number below. ??For patients who have questions please contact the health healthcare insurance sales agent that requested your imaging first. ? Electronically signed by: Stuart Aponte MD, [facility] ??([phone]), at 06/03/2024 4:47 PM Narrative 06/03/2024 4:47 [...] who have questions please contactthe health healthcare insurance sales agent that requested your imaging first. Electronically signed by: Stuart Aponte MD, [facility]([phone]), at 06/03/2024 4:47 PM Bobby Loja MD IMG CT ORDERABLES * Carotid Duplex, Bilateral (06/03/2024 2:19 PM EDT) VB Text Report Department: Vascular Surgery Lab Patient: [id number] (GEORGE MEHTA) CPT: 97397 Referring Physician: BOBBY LOJA ?? Phone: Indications: [...] VASCULAR ORDERABLES Performing Organization Address City/[facility] Co de Phone Number [facility] * Heparin (unfractionated) Level (06/03/2024 12:48 PM EDT) UF Heparin 0.15 IU/mL 06/03/2024 1:[address] [facility] Comment: Heparin (anti-Xa) levels should [...] EDT Shahnaz Scanlon MD HEMATOLOGY ORDERABLE S [facility] [place] [address] * POC, GLUCOSE (06/03/2024 11:14 AM EDT) Glucometer, POC 166 65 - 199 mg/dL 06/03/2024 11:[address] [facility] Comment:Supplemental ranges: <140 mg/dL before meals <180 mg/dL all other times of the day. Blood CAPILLARY BLOOD / Unknown 06/03/2024 11:14 AM EDT 06/03/2024 11:14 AM EDT Delroy Fofana MD POINT OF CARE TEST ORDERABLES [facility] [place] [address] * (ABNORMAL) Troponin-T, High Sensitivity 3 Hour (06/03/2024 10:06 AM EDT) Troponin-T, High Sensitivity 266(H) <=22 ng/L 06/03/2024 10:[address] [facility] Comment: This patient's troponin T [...] troponin value can be found in the [facility] Test Catalog Troponin - https://[facility]-.testcatalog.org/catalogs/565/files/28655 Reference: [place] Definition of Myocardial Infarction. Journal of the [place] [employer] 2018;72:5657-2616 Troponin-T, HS 3 hr delta 06/03/2024 10:[address] [facility] Comment:Delta troponin value not calculated, sample collected outside of delta calculation time limit. Blood VENOUS BLOOD SPECIMEN / Unknown IP Care Team Draw / Unknown 06/03/2024 10:06 AM EDT 06/03/2024 10:15 AM EDT Delroy Fofana MD CHEMISTRY ORDERABLE S [facility] [place] [address] * ECHO COMPLETE W CONTRAST (06/03/2024 8:46 AM EDT) Anatomical Region Laterality Modality Cardiac Other 06/03/2024 6:52 AM EDT Narrative 06/03/2024 10:32 AM EDT [address] [place] [address] ? Echocardiogram Report Name: GEORGE MEHTA ?Study Date: 06/03/2024 06:52 AM : 1955 ? Height: 168 cm ? Account: [id number] Age: 69 yrs ? Weight: 102 kg Gender: Male ?BSA: 2.1 m2 Ordering Physician: SHAHNAZ SCANLON Referring Physician: REBEL MUÑIZ Performed By: Sara Kebede RDCS Reason For Study: STEMI Exam Location: [facility]. Interpretation Summary -Left ventricular systolic [...] fellow performed study of today's date). Procedure Complete-[id number]. Image enhancement Optison was used for left [...] Note Jonnie Jordan MD - 06/03/2024 [address] [place] [address] Echocardiogram Report Name: GEORGE MEHTA Study Date: 406:52 AM : 1955 Height: 168 cm Account: [id number] Age: 69 yrs Weight: 102 kg Gender: Male BSA: 2.1 m2 Ordering Physician: SHAHNAZ SCANLON Referring Physician: REBEL MUÑIZ Performed By: Sara Kebede RDCS Reason For Study: STEMI Exam Location: [facility]. Interpretation Summary -Left ventricular systolic [...] a fellow performed study of's date). Procedure Complete-[id number]. Image enhancement Optison was used for left [...] 289(H) <=22 ng/L 06/03/2024 9:[address] [facility] Comment: This patient's troponin T [...] troponin value can be found in the [facility] Test Catalog Troponin - https://[email or web address]-.testcatalog.org/catalogs/565/files/11847 Reference: Fourth [place] Definition of Myocardial Infarction. Journal of the [place] [employer] 2018;72:0171-8808 Troponin-T, HS 1 hr delta 5 ng/L 06/03/2024 9:[address] [facility] Comment:The 1 hour Troponin T delta value is the absolute difference between the Troponin T concentrations of the initial and subsequent sample collected between 45 - 120 minutes following the initial collection. Blood VENOUS BLOOD SPECIMEN / Unknown IP Care Team Draw / Unknown 06/03/2024 8:27 AM EDT 06/03/2024 8:37 AM EDT Delroy Fofana MD CHEMISTRY ORDERABLE S [facility] [place] [address] * POC, GLUCOSE (06/03/2024 7:54 AM EDT) Glucometer, POC 195 65 - 199 mg/dL 06/03/2024 7:[address] [facility] Comment:Supplemental ranges: <140 mg/dL before meals <180 mg/dL all other times of the day. Blood CAPILLARY BLOOD / Unknown 06/03/2024 7:54 AM EDT 06/03/2024 7:55 AM EDT Nuha Rojo MD POINT OF CARE TEST ORDERABLES Performing Organization Address [facility]/ZIP Co de Phone Number [facility] [place] [address] * (ABNORMAL) Troponin-T, High Sensitivity (06/03/2024 7:39 AM EDT) Troponin-T, High Sensitivity Initial 284(H) <=22 ng/L 06/03/2024 8:[address] [facility] Comment: This patient's troponin T [...] troponin value can be found in the [employer] Test Catalog Troponin - https://[employer]/catalogs/565/files/87614 Reference: Fourth [place] Definition of Myocardial Infarction. Journal of the [place] College [employer]iology 2018;72:1391-6589 Blood VENOUS BLOOD SPECIMEN / Unknown IP Care Team Draw / Unknown 06/03/2024 7:39 AM EDT 06/03/2024 7:48 AM EDT Delroy Fofana MD CHEMISTRY ORDERABLE S [facility] [place] [address] * (ABNORMAL) Troponin-T, High Sensitivity 3 Hour (06/03/2024 5:11 AM EDT) Troponin-T, High Sensitivity 254(H) <=22 ng/L 06/03/2024 5:[address] [facility] Comment: This patient's troponin T [...] troponin value can be found in the [employer] [facility] [employer] Test Catalog Troponin - https://[employer]/catalogs/565/files/67932 Reference: [place] Definition of Myocardial Infarction. Journal of the [place] College [employer]iology 2018;72:5222-8621 Troponin-T, HS 3 hr delta 46 ng/L 06/03/2024 5:[address] [facility] Comment:The 3 hour Troponin T delta value is the absolute difference between the Troponin T concentrations of the initial and subsequent sample collected between 2 h: 45 min and 6 h following the initial collection Blood VENOUS BLOOD SPECIMEN / Unknown IP Care Team Draw / Unknown 06/03/2024 5:11 AM EDT 06/03/2024 5:20 AM EDT Shahnaz Scanlon MD CHEMISTRY ORDERABLES [facility] [place] [address] * (ABNORMAL) Troponin-T, High Sensitivity 1 Hour (06/03/2024 3:07 AM EDT) Troponin-T, High Sensitivity 218(H) <=22 ng/L 06/03/2024 3:[address] [facility] Comment: This patient's troponin T [...] troponin value can be found in the [facility] Test Catalog Troponin - https://[facility]-.testcatalog.org/catalogs/565/files/29401 Reference: [place] Definition of Myocardial Infarction. Journal of the [place] College of Cardiology 2018;72:9474-8956 Troponin-T, HS 1 hr delta 10 ng/L 06/03/2024 3:[address] [facility] Comment:The 1 hour Troponin T delta value is the absolute difference between the Troponin T concentrations of the initial and subsequent sample collected between 45 - 120 minutes following the initial collection. Blood VENOUS BLOOD SPECIMEN / Unknown IP Care Team Draw / Unknown 06/03/2024 3:07 AM EDT 06/03/2024 3:12 AM EDT Shahnaz Scanlon MD CHEMISTRY ORDERABLES [facility] [place] [address] * XR Chest One View (06/03/2024 2:41 AM EDT) WORKSTATION ID [id number] RAD Anatomical Region Laterality Modality Chest N/A Digital Radiogra phy Impressions 06/03/2024 3:06 AM EDT No radiographically evident acute cardiopulmonary process. Thank you for letting us participate in the care of this patient. ??If you are a health care provider and have any questions regarding this report, please contact the number below. ??For patients who have questions please contact the health healthcare insurance sales agent that requested your imaging first. ? Narrative [...] who have questions please contactthe health healthcare insurance sales agent that requested your imaging first. Electronically signed by: Corazon Mauro MD, [facility]([phone]), at 06/03/2024 3:06 AM Shahnaz Scanlon MD IMG DX ORDERABLES * Heparin (unfractionated) Level (06/03/2024 2:13 AM EDT) UF Heparin 0.56 IU/mL 06/03/2024 4:[address] [facility] Comment: Heparin (anti-Xa) levels should [...] EDT Shahnaz Scanlon MD HEMATOLOGY ORDERABLE S [facility] [place] [address] * (ABNORMAL) Troponin-T, High Sensitivity (06/03/2024 2:13 AM EDT) Troponin-T, High Sensitivity Initial 208(H) <=22 ng/L 06/03/2024 3:[address] [facility] Comment: This patient's troponin T [...] troponin value can be found in the [facility] Test Catalog Troponin - https://[email or web address]-.testcatalog.org/catalogs/565/files/62227 Reference: Fourth [place] Definition of Myocardial Infarction. Journal of the [place] College [employer] Cardiology 2018;72:9515-7154 Blood VENOUS BLOOD SPECIMEN / Unknown IP Care Team Draw / Unknown 06/03/2024 2:13 AM EDT 06/03/2024 2:32 AM EDT Shahnaz Scanlon MD CHEMISTRY ORDERABLES [facility] [place] [address] * Magnesium (06/03/2024 2:13 AM EDT) Magnesium 0.86 0.69 - 1.07 mMol/L 06/03/2024 3:[address] [facility] Blood VENOUS BLOOD SPECIMEN / Unknown IP Care Team Draw / Unknown 06/03/2024 2:13 AM EDT 06/03/2024 2:32 AM EDT Shahnaz Scanlon MD CHEMISTRY ORDERABLES Performing Organization Address City/[facility]/ZIP Co de Phone Number [facility] [place] [address] * Basic Metabolic Panel (06/03/2024 2:13 AM EDT) Glucose 126 65 - 199 mg/dL 06/03/2024 3:[address] [facility] Comment:Glucose Concentratio n >=200 mg/dL plus symptoms is consistent with Diabetes Mellitus. Blood Urea Nitrogen 20 10 - 20 mg/dL 06/03/2024 3:[address] [facility] Creatinine 1.13 0.80 - 1.50 mg/dL 06/03/2024 3:[address] [facility] Sodium 139 135 - 145 mMol/L 06/03/2024 3:[address] [facility] Potassium 4.2 3.5 - 5.0 mMol/L 06/03/2024 3:[address] [facility] Chloride 101 98 - 107 mMol/L 06/03/2024 3:[address] [facility] Carbon Dioxide 26 22 - 31 mMol/L 06/03/2024 3:[address] [facility] Anion Gap 12 5 - 15 mMol/L 06/03/2024 3:[address] [facility] Calcium 9.8 8.5 - 10.5 mg/dL 06/03/2024 3:[address] [facility] Est Glomerular Filtration Rate - Male 71 mL/min/1. 73 m?? 06/03/2024 3:[address] [facility] Comment: This patient's estimated GFR [...] AM EDT Shahnaz Scanlon MD CHEMISTRY ORDERABLES [facility] [place] [address] * (ABNORMAL) CBC (with Diff) (06/03/2024 2:13 AM EDT) White Blood Cell 11.16(H) 4.00 - 9.50 x10(3)/mc L 06/03/2024 2:[address] [facility] Red Blood Cell 5.09 4.58 - 5.54 x10(6)/mc L 06/03/2024 2:[address] [facility] Hemoglobin 15.0 13.7 - 16.5 g/dL 06/03/2024 2:[address] [facility] Hematocrit 47.4 40.5 - 48.5 % 06/03/2024 2:37 AM [facility] Mean Cell Volume 93.1 82.9 - 93.1 fL 06/03/2024 2:37 AM [facility] Mean Cell Hemoglobin 29.5 27.5 - 32.1 pg 06/03/2024 2:37 AM [facility] Mean Cell Hemoglobin Concentration 31.6(L) 32.0 - 35.7 g/dL 06/03/2024 2:37 AM [facility] Platelet 217 145 - 357 x10(3)/mc L 06/03/2024 2:37 AM [facility] Mean Platelet Volume 9.5 7.6 - 12.9 fL 06/03/2024 2:37 AM [facility] RDW Standard Deviation 49.0(H) 36.0 - 45.0 fL 06/03/2024 2:37 AM [facility] RDW coefficient of variation 14.1(H) 11.4 - 13.8 % 06/03/2024 2:37 AM [facility] [...] % 8.1 % 06/03/2024 2:[address] [facility] Monocyte Absolute 0.90 0.30 - 0.90 x10(3)/mc L 06/03/2024 2:[address] [facility] Eos % 2.4 % 06/03/2024 2:[address] [facility] Eos Absolute 0.27 0.00 - 0.40 x10(3)/mc L 06/03/2024 2:[address] [facility] Basophil % 0.8 % 06/03/2024 2:[address] [facility] Baso Absolute 0.09 0.00 - 0.10 x10(3)/mc L 06/03/2024 2:[address] [facility] Immature Gran % 0.4 % 2:[address] [facility] Immature Gran Absolute 0.05(H) 0.00 - 0.04 x10(3)/mc L 06/03/2024 2:[address] [facility] Blood VENOUS BLOOD SPECIMEN / Unknown IP Care Team Draw / Unknown 06/03/2024 2:13 AM EDT 06/03/2024 2:31 AM EDT Shahnaz Scanlon MD HEMATOLOGY ORDERABLE S [facility] [place] [address] * Lipid Panel (Reflex Direct LDL) (06/03/2024 2:13 AM EDT) Pathologist [facility] Cholesterol, Total 76 mg/dL 06/03/2024 3:[address] [facility] Comment: Desirable: < 200 mg/dL Borderline High: 200 - 239 mg/dL High: > or = 240 mg/dL Triglyceride 75 mg/dL 06/03/2024 3:[address] [facility] Comment: Normal: <150 mg/dL Borderline High: 150-199 mg/dL High: 200-499 mg/dL Very High: > or =500 mg/dL HDL Cholesterol 39 mg/dL 3:02 AM [facility] Comment:Males: High Risk: <4 0 mg/dL LDL Cholesterol 21 mg/dL 3:02 AM [facility] Comment: Desirable: <100 mg/dL Above Desirable: 100-129 mg/dL Borderline High: 130-159 mg/dL High: 160-189 mg/dL Very High: > or =190 mg/dL Note: LDL calculation updated to the NIH LDL formula as of 03/07/2024 Non-HDL Cholesterol 37 mg/dL 06/03/2024 3:02 AM [facility] Comment: Desirable: <130 mg/dL [...] ACC/AHA Guidelines (most recently [facility] 05/07/22): * For individuals with [...] artery disease) Shahnaz Scanlon MD CHEMISTRY ORDERABLES [facility] [place] [address] * (ABNORMAL) APTT (06/03/2024 2:13 AM EDT) [facility] Signature Partial Thromboplastin Time 105(HHH) 25 - 37 sec 06/03/2024 4:[address] [facility] Comment: The PTT is NOT appropriate for heparin monitoring. Use the Anti-Xa level for heparin monitoring (HEP UFH) or LMWH monitoring (HEP LMW). A PTT less than 37 seconds generally indicates adequate hemostasis. Blood VENOUS BLOOD SPECIMEN / Unknown IP Care Team Draw / Unknown 06/03/2024 2:13 AM EDT 06/03/2024 2:32 AM EDT Shahnaz Scanlon MD HEMATOLOGY ORDERABLE S [facility] [place] [address] * Prothrombin Time (06/03/2024 2:13 AM EDT) Prothrombin Time 11.5 9.4 - 12.5 sec 06/03/2024 4:[address] [facility] International Normalization Ratio 1.0 <=4.9 06/03/2024 4:[address] [facility] Comment: An INR < 2.0 [...] EDT Shahnaz Scanlon MD HEMATOLOGY ORDERABLE S [facility] [place] [address] * Hepatic Function Panel (06/03/2024 2:13 AM EDT) Albumin 3.8 3.2 - 5.2 g/dL 06/03/2024 3:[address] [facility] Aspartate Aminotransferase 20 <=39 unit/L 06/03/2024 3:[address] [facility] Alanine Aminotransferase 12 0 - 55 unit/L 06/03/2024 3:[address] [facility] Alkaline Phosphatase 76 40 - 130 unit/L 06/03/2024 3:[address] [facility] Bilirubin, Total 0.4 <=1.3 mg/dL 06/03/2024 3:[address] [facility] Bilirubin, Direct <0.2 0.0 - 0.3 mg/dL 06/03/2024 3:[address] [facility] Protein, Total 7.0 6.1 - 8.0 g/dL 06/03/2024 3:[address] [facility] Blood VENOUS BLOOD SPECIMEN / Unknown IP Care Team Draw / Unknown 06/03/2024 2:13 AM EDT 06/03/2024 2:32 AM EDT Shahnaz Scanlon MD CHEMISTRY ORDERABLES [facility] [place] [address] * (ABNORMAL) pro-Brain Natriuretic Peptide (06/03/2024 2:13 AM EDT) NT-proBNP 1,628(H) <=124 pg/mL 06/03/2024 4:[address] [facility] Blood VENOUS BLOOD SPECIMEN / Unknown IP Care Team Draw / Unknown 06/03/2024 2:13 AM EDT 06/03/2024 2:32 AM EDT Shahnaz Scanlon MD CHEMISTRY ORDERABLES [facility] [place] [address] * Phosphorus (06/03/2024 2:13 AM EDT) Phosphorus 4.4 2.5 - 4.5 mg/dL 06/03/2024 3:[address] [facility] Blood VENOUS BLOOD SPECIMEN / Unknown IP Care Team Draw / Unknown 06/03/2024 2:13 AM EDT 06/03/2024 2:32 AM EDT Shahnaz Scanlon MD CHEMISTRY ORDERABLES [facility] [place] [address] * EKG 12 Lead (06/03/2024 1:45 AM EDT) Ventricular rate 63 BPM MUSE SYSTEM Atrial Rate 63 BPM MUSE SYSTEM P-R Interval 168 ms MUSE SYSTEM QRS Duration 96 ms MUSE SYSTEM Q-T Interval 400 ms MUSE SYSTEM QTC Calculated (Bezet) 409 ms MUSE SYSTEM Calculated P [place] 65 degrees MUSE SYSTEM Calculated R [place] 70 degrees MUSE SYSTEM Calculated T [place] -86 degrees MUSE SYSTEM INTERPRETATION Atrial-sensed ventricular-paced rhythm Abnormal ECG No previous ECGs available I personally reviewed the tracing and edited the fellows interpretation Confirmed by fellow Sunni Agudelo ([id number]) on 06/04/2024 3:55:40 PM Confirmed by MD Tamia, Stuart Perry ([id number]) on 06/05/2024 11:46:48 AM MUSE SYSTEM 06/03/2024 1:45 AM EDT 06/05/2024 11:46 AM EDT Shahnaz Scanlon MD ECG ORDERABLES MUSE SYSTEM * CARDIAC CATHETERIZATION (06/03/2024 12:42 AM EDT) Anatomical Region Laterality Modality Other Narrative 06/04/2024 2:22 PM EDT ?[facility] ? Cardiac Catheterization/Intervention Report ? Patient Name: George Mehta Rangel ? Procedure Date: 06/02/2024 ? A #: [id number] ? Primary Physician: Nuha Shen I ? Case #: [id number] ? File Name: [id number] ? Catheterization Order Number: [id number] ? [facility] ? Final Report [place], [place] ? Patient Name: ? George L. Tyson ? ID#: ?[id number] ? : ?1955 ? Procedure Date: ? June 02, 2024 ? Case #: ? [id number] ? Room: ? 5 ? Case Physician: [...] was designated as ASA Class IV. The [facility] clinical frailty ?scale is 5: Mildly Frail. ? Diagnostic Tests: ?Electrocardiography: ? EKG was assessed by ECG. EKG was Abnormal. EKG showed ST Deviation ? >= 0.5 mm. ?Medications Prior to Procedure: ? Sacubitril and Valsartan, Aspirin, Beta Erik, Statin and ? Thrombolytic (any). ? Indications for Diagnostic Cath: ?The priority of the diagnostic procedure was Emergent. The indication for ?the quality assurance/r&d lab technician visit is ACS less than or [...] ?3.5 guiding catheter and a 3.5 Fr [facility] 20 Mhz using Manual ?pullback. ??Imaging was [...] 3.5 guiding catheter and a 3.5 Fr [facility] 20 Mhz using ?Manual pullback. ??Imaging was [...] ?catheterization and IVUS # coronary. ? Nuha Rojo Hermelinda, M.D. ? Electronically Signed by: Nuha Shen, M.D. ? Report Finalized: 06/04/2024 ??14:16 ? Report Last Ammended: 07/20/2024 ??15:36 ? Procedure Note Nuah Shen MD - 07/20/2024 [facility] Cardiac Catheterization/Intervention Report Patient Name: George Mehta Procedure Date: 06/02/2024 A #: [id number] Primary Physician: Nuha Shen I Case #: [id number] File Name: [id number] Catheterization Order Number: [id number] [facility] FinalReport [place], [place] Patient Name: George Mehta ID#:[id number] :[id number] Procedure Date: June 02, 2024 Case [...] was designated as ASA Class IV. The [facility] clinicalfrailty scale is 5: Mildly Frail. Diagnostic Tests: Electrocardiography: EKG was assessed by ECG. EKG was Abnormal. EKG showed STDeviation >= 0.5 mm. Medications Prior to Procedure: Sacubitril and Valsartan, Aspirin, Beta Erik, Statin and Thrombolytic (any). Indications for Diagnostic Cath: The priority of the diagnostic procedure was Emergent. Theindication for the quality assurance/r&d lab technician visit is ACS less than or [...] units of heparin were administered. A total ek039bv of Omnipaque were opened, 84cc of Omnipaque were administered yog14ep of Omnipaque were wasted. Radiation: Fluoro time [...] 3.5 guiding catheter and a 3.5 Fr [facility] 20 Mhz usingManual pullback. Imaging was successful. [...] 3.5 guiding catheter and a 3.5 Fr [facility] 20 Mhzusing Manual pullback. Imaging was successful. Indication: IVUS performed for pre intervention planning. Findings Pre-Intervention: scattered plaque, calcification and insh942 degrees calcification. Findings Post-Intervention: Stent not imaged [...] * POC, GLUCOSE (06/02/2024 11:31 PM EDT) [facility] Signature Glucometer, POC 156 65 - 199 mg/dL 06/02/2024 11:[address] [facility] Comment:Supplemental ranges: <140 mg/dL before meals <180 mg/dL all other times of the day. Blood CAPILLARY BLOOD / Unknown 06/02/2024 11:31 PM EDT 06/02/2024 11:31 PM EDT Nuha Rojo MD POINT OF CARE TEST ORDERABLES Performing Organization Address City/State/[facility] Co de Phone Number [facility] [place] [address] documented in this encounter Visit Diagnoses Not [...] 2100, Last dose on Fri06/23/24 at 0900, [employer] Director recommended duration is 3 days., Routine Given [...] 10:46 AM EST 50 mEq sodium chloride (Juana Diaz) 0.65 % nasal spray 1 spray 1 [...] Miguelina 06/03/24 at 0900, Until Discontinued, Routine 0824 (Given [...] Michelle Orozco RN) 0605 (Given - Provider: Vasquezrocky Myers RN) insulin glargine-ygfn (Semglee) (100 unit/mL) [...] and then remove for 12 hours., Routine 08 (Not Given - Provider: Mary Lou Lane RN - Reason: Patient/family refused)2020 (Patch Applied - Provider: Christina Myers RN) 08 (Patch Removed - Provider: Michelle Orozco RN)08 (Patch Applied - Provider: Michelle Orozco RN)2020 [...] 2100, Last dose on Fri06/23/24 at 0900, [employer] Director recommended duration is 3 days., Routine 2043 [...] Comment: 9372) 0837 (Given - Provider: Shazia Mcdonald, JAMIE) [...] line., Routine 1505 (See Alternative - Provider: MaryL ou Lane RN)2018 (See Alternative - Provider: Christina [...] oral route first line., Routine sodium chloride (Juana Diaz) 0.65 % nasal spray 1 spray 1 [...] 6 hours upon arrival to Unit. Give [place] if unable to take PO, Routine Group [...] Routine documented in this encounter Care Teams Cancer Registrar Relationship Specialty Start Date End Date Mauro Berumen MD [address] [place] [address] PCP - General Family Medicine 06/02/24 documented as of this encounter
--- OUTSIDE RECORDS SUMMARY | 2024-08-13 17:14 | XMS_ITS | Encounter Summary ---
Author Organization [facility] [place] [address] Care Team Providers Care Senior Ui Developer Name Role Phone Mauro Berumen MD Primary Care Provider [phone] Reason for Visit * Auth/Cert Specialty Diagnoses / Procedures Referred By Carroll t Referred To Contact Diagnoses STEMI (ST elevation myocardial infarction) STEMI Procedures CARDIAC CATHETERIZATION EMERGENCY Delroy Monterroso MD [facility] [place] [address] [facility] Referral ID Status Reason Start Date Expiration Date Visits Re quested Visits Authorized [id number] 1 1 Encounter Details Date Type Department Care Team (Late st Contact Info) Description 06/14/2024 7:30 AM EST Anesthesia [place] [address] Hosea Ardon MD [facility] [place] [address] Joy Leyva CRNA [facility] [place] [address] Anesthesia Record Procedure Summary Procedure Name Responsible [...] by Zeferino Baker RN PIV 06/13/24; 1200; xxmt-jhw-adrswt catheter system; 20 gauge; metacarpal vein (top [...] temperature probe; 100% silicone; 14; inserted at [facility]; 1; 10; 10; drainage bag; 06/18/24; [...] Ardon MD 06/15/24 0000 by Yoli Donaldson EMBRYOLOGY TEACHER [facility] Line 06/14/24; 0827; Sing le Lumen; [...] Tobacco: Every Day Cigarettes Smokeless Tobacco: Never [facility] Utilities Answer Date Recorded In the past 12 months has [employer], [employer], oil, or water [employer] threatened to shut off services in your [...] in a half-way (including now)? 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 LV ejection fraction [...] AM Reason For Study: STEMI Exam Location: [facility]. Interpretation Summary -Left ventricular [...] 65 - 199 mg/dL -Type and screen ([facility]/CGP/RAFITA): Result Value Ref Range ABORH Type O POSITIVE PATIENT HISTORY Not Found Expires at [id number] on: 06/16/2024 ANTIBODY SCREEN AUTOMATED Negative T&S only valid at [facility] -POC, GLUCOSE: Result Value Ref Range Glucometer, POC 216 (H) 65 - 199 mg/dL -ABORH RECHECK: Result Value Ref Range ABORH Recheck O POSITIVE -Heparin (unfractionated) Level: Result Value Ref Range UF Heparin 0.76 IU/mL Region - Intrathoracic Cardiac Informed Consent: Plan discussed with BUCKLE SEWER MACHINE. Anesthesia Screening documented in this encounter Plan of Treatment Upcoming Encounters Date Type Department Care Team (Late st Contact Info) Description 08/14/2024 Hospital Encounter Heart and Vascular Unit Level 3 Wing B at [facility] [place] [address] Jim Benites MD [facility] [place] [address] documented as of this encounter Visit Diagnoses [...] mL/hr documented in this encounter Care Teams Senior Ui Developer Relationship Specialty Start Date End Date Mauro Berumen MD [address] [place] [address] PCP - General Family Medicine 06/02/24 documented as of this encounter
--- OUTSIDE RECORDS SUMMARY | 2024-08-13 17:16 | XMS_ITS | Encounter Summary ---
Author Organization [facility] [place] [address] Care Team Providers Care Warehouse Material Handler Name Role Phone Mauro Berumen MD Primary Care Provider [phone] Reason for Visit * Auth/Cert Specialty Diagnoses / Procedures Referred By Carroll lopez Referred To Contact Diagnoses STEMI (ST elevation myocardial infarction) STEMI Procedures CARDIAC CATHETERIZATION EMERGENCY Delroy Monterroso MD [facility] [place] [place] [address] [facility] Referral ID Status Reason Start Date Expiration Date Visits Re quested Visits Authorized [id number] 1 1 Encounter Details Date Type Department Care Team (Late st Contact Info) Description 06/13/2024 9:00 AM EST - 06/13/2024 10:00 AM EST Surgery [place] [address] Nuha Shen MD [facility] [place] [place] [address] CARDIAC CATHETERIZATION Social History Tobacco Use Types Packs/Day Years Used Date Smoking Tobacco: Every Day Cigarettes Smokeless Tobacco: Never Tobacco Cessation:Ready to Q uit: No; Counseling Given: Yes [facility] Utilities Answer Date Recorded In the past 12 months has [employer], gas, oil, or water company threatened to [...] any time in the past 12 m [facility], were you homeless or living in [...] Patient Age: 69 y.o. Birthdate: 1955 Language: Yemeni Race: Choose not to Disclose Ethnicity: Not nor Admit Date: 06/02/2024 Discharge Date: 06/21/2024 Attending Physician: Bobby Loja MD Follow-up Recommendations for Providers: Please continue routine management of cardiovascular risk factors including blood pressure, lipids,glucose, etc. Please note any changes to medications. Patient to follow up with PCP, Mauro Berumen MD, in 1-2 weeks. Patient to follow up with Hvac Engineering Technician, Kristen Cardenas in 2-3 weeks. Patient to follow up with Cardiac Surgeon, Dr. Bobby Loja, in 4 wks. Inpatient Provider Contact Information: [facility] Section of Cardiac Surgery [facility] [address] FAX [phone] Discharge Diagnoses (Hospital Problems) Primary Diagnoses: STEMI [...] (WRVU 33.75) performed by Bobby Loja MD [facility] OR PRO CABG, ARTERY-VEIN, TWO N/A 06/14/2024 @CABG, TWO VENOUS GRAFTS & ARTERIAL GRAFT (WRVU 7.93) performed by Bobby Loja MD at [facility] OR PRO ENDOSCOPY W/VIDEO-ASST VEIN HARVEST, CABG N/A 06/14/2024 ENDOSCOPIC HARVEST VEIN(S) FOR CABG (WRVU 0.31) performed by Bobby Loja MD at [facility] MAIN OR PRO EXC MEDIASTINAL TUMOR N/A 06/14/2024 @EXCISION OF MEDIASTINAL TUMOR (WRVU 19.55) performed by Bobby Loja MD at [facility] MAIN OR PRO INSERT INTRA-AORTIC BALLOON ASST DEVICE PERCUTANEOUS N/A 06/13/2024 @INSERTION OF IABP,PERCUTANEOUS (WRVU 4.84) performed by Nuha Shen MD at [facility] CATH LABS PRO UNLISTED CARDIAC SURG PROCEDURE N/A 06/14/2024 EXPLORATION AND OVERSEW ATRIAL APPENDAGE (WRVU 5.94) performed by Bobby Loja MD at [facility] [place] Prior To Admission Medications Medications [...] y.o. male with a PMHx of previous UT s/p PCI x3, ICM/HFrEF (LVEF 30%) s/p ICD, DMII, HTN, HLD, remote melanoma, and smoker who presented to [facility] last night via EMS after developing acute, severe chest pain while watching TV. Patient was ruled in for STEMI, given TNK, ASA, plavix, heparin gtt, and sent to [facility] for coronary angiography. [facility] demonstrated severely calcified left coronary system with notable LCx 75/80% lesions and COOK CASHIER FOOD PREP OM1 with ISR with collateral retrograde filling, [...] Hospital Course: George Mehta was admitted to [facility] on 06/02/2024 via the CardiologyService with an anterior STEMI after receiving lytics at OSH. He was brought to the manager lab which showed severely calcified left coronary system with notable LCx 75/80% lesions and COOK CASHIER FOOD PREP OM1 with ISR with collateral retrograde filling, [...] 2 tablespoons of dried fruit. Milk and yd-ejkyo-dnhtb yogurt have 15 grams of carbs in a serving. A serving is 1 cup of milk or 3/4 cup (6 oz) of bj-kfkmu-iqxgp yogurt. Starchy vegetables have 15 grams of carbs in a serving. A serving is ?? cup of mashed potatoes or sweet potato; 1 cup winter squash; ?? of a small baked potato; ?? cup of cooked beans; or ?? cup cooked corn or green peas. Learn how much carbs to eat each day and at each meal. A dietitian or certified medical asst can teach you how to keep track [...] Bobby Loja and/or the Cardiac Surgery Physician Car Cooper Team may be reached at . Weight: [...] Dr. Bobby Loja. You may use a [place] Track or treadmill but avoid any pulling [...] friends, go to a movie, go to advent, etc. Heavy activities: No hunting, skiing, jogging, [...] should resume a low fat, low cholesterol, [place] [employer] Diet/Diabetic diet. Driving: No driving [...] while being managed by your PCP and/or Hvac Engineering Technician. For future medication refills, please refer to your PCP and/or Hvac Engineering Technician after your discharge from our service. Thank you REMOVE CHEST TUBE SUTURES ON OR AFTER 06/24/2024 Home oxygen therapy: N/A Follow up appointments: You should follow up with your PCP, Mauro Berumen MD, in 1-2 weeks. You should follow up with your Hvac Engineering Technician, Dr CARDENAS. You have an appointment with your Cardiac Surgeon, Dr. Bobby Loja, in 4 wks. Cardiac Rehabilitation: George Mehta was seen today regarding participation in the outpatient Phase 2 Cardiac Rehabilitation at [facility]. The patient agrees to a referral to this program. The referral will be sent at discharge and the patient should be contacted by the program within 1-2 weeks from discharge. Future Appointments and Orders Future Orders Complete By Expires Referral to Cardiac Rehab [[id number] Custom] As directed Process Instructions: If no progress note charted, please enter Clinical details in comments. Scheduling Instructions: Questions: My question or request is: s/p CABG- cardiac rehab at [facility] Referral to Home Health [REF34 Custom] As directed Process Instructions: If no progress note charted, please enter Clinical details in comments. Scheduling Instructions: Comments: Please evaluate George Mehta for admission to Home Health. [address] [facility] [address] (home) Date of : 1955 Inpatient DOCUMENTATION FOR VNA SERVICES (INCLUDING THOSE PATIENTS WITH MEDICARE COVERAGE REQUIRINGHOME VNA SERVICES AND/OR HOSPICE SERVICES) PATIENT'S LOCATION: George Mehta [address] [facility] [address] (home) Telephone Information: Laborer Electroplating's Name: self In discussion with the attending physician, it is certified that this patient is under their care and that they, or a Nurse Practitioner, or Physician Car Cooper who is working directly with them, hada [...] for services as follows: HOME HEALTH AGENCY: [facility]. [address] [place] [id number] RN orders: Cardiopulmonary assessment, incisional assessment, assess [...] issues please call the Cardiology Office at [phone] FOR MEDICARE ONLY: (please delete this section [...] care: As above. Signed: KEILA HANLEY APRN [facility] Section of Cardiac Surgery [facility] [address] FAX [phone] Date: 06/21/2024 CC: MD Antonino Tinajero Joshua R, PA [address] [place] [address] [place] [address] documented in this encounter Discharge Instructions * [...] 2 tablespoons of dried fruit. Milk and mr-bohze-notiv yogurt have 15 grams of carbs in a serving. A serving is 1 cup of milk or 3/4 cup (6 oz) of rs-zoznc-cpczn yogurt. Starchy vegetables have 15 grams of carbs in a serving. A serving is ?? cup of mashed potatoes or sweet potato; 1 cup winter squash; ?? of a small baked potato; ?? cup of cooked beans; or ?? cup cooked corn or green peas. Learn how much carbs to eat each day and at each meal. A dietitian or certified medical asst can teach you how to keep track [...] Bobby Loja and/or the Cardiac Surgery Physician Car Cooper Team may be reached at . Weight: [...] Dr. Bobby Loja. You may use a [place] Track or treadmill but avoid any pulling [...] friends, go to a movie, go to advent, etc. Heavy activities: No hunting, skiing, jogging, [...] should resume a low fat, low cholesterol, [place] [employer] Diet/Diabetic diet. Driving: No driving [...] while being managed by your PCP and/or Hvac Engineering Technician. For future medication refills, please refer to your PCP and/or Hvac Engineering Technician after your discharge from our service. Thank you REMOVE CHEST TUBE SUTURES ON OR AFTER 06/24/2024 Home oxygen therapy: N/A Follow up appointments: You should follow up with your PCP, Mauro Berumen MD, in 1-2 weeks. You should follow up with your Hvac Engineering Technician, Dr CARDENAS. You have an appointment with your Cardiac Surgeon, Dr. Bobby Loja, in 4 wks. Cardiac Rehabilitation: George Mehta was seen today regarding participation in the outpatient Phase 2 Cardiac Rehabilitation at [facility]. The patient agrees to a referral to [...] of your patient's venous access was performed [facility] theVascular Access Service. The following tasks [...] of your patient's venous access was performed [facility] theVascular Access Service. The following tasks [...] or weekly) [] Other * Alejandra Baumann, STAIN MAKER - 06/21/2024 7:05 AM EST Follow Up [...] [place] clipping. PMH of chronic HFrEF s/p RN SOCIAL SERVICES/ICD, IDDM2, HTN, HLD, remote melanoma, active smoker. [...] 2 tablespoons of dried fruit. Milk and mc-vynnt-qqdfc yogurt have 15 grams of carbs in a serving. A serving is 1 cup of milk or 3/4 cup (6 oz) of of-npqdt-eebuz yogurt. Starchy vegetables have 15 grams of carbs in a serving. A serving is ?? cup of mashed potatoes or sweet potato; 1 cup winter squash; ?? of a small baked potato; ?? cup of cooked beans; or ?? cup cooked corn or green peas. Learn how much carbs to eat each day and at each meal. A dietitian or certified medical asst can teach you how to keep track [...] cheese, and peanut butter. Alejandra Baumann APRN [facility] Endocrinology Diabetes Management Pager [phone] Weekends please page [phone] * Eric Packer PA - 06/20/2024 7:44 AM EST Cardiac Surgery Progress Note George Mehta is a 69 y.o. male with a history of CAD s/p multiple PCI who presented with an anterior STEMI and was given lytics. Cath showed MV CAD without culprit vessel. He is now 6 Days Post-OpCABGx3 and MARIALUISA clipping. PMH of chronic HFrEF s/p RN SOCIAL SERVICES/ICD, IDDM2, HTN, HLD, remote melanoma, active smoker. [...] 89 Pt is followed by heart failure cardiac cath technologist at [facility] #IDDM2 DM team following Lantus, SSI Carb controlled diet #Active smoker Duoneb prn Dispo: Floor, full code, home when ready Discussed with attending surgeon on rounds this morning. 06/20/2024 Between the hours of 1800 - 0600 and on the weekends please page [phone]. * Alejandra Baumann, JOSÉ ANTONIO - 06/20/2024 7:21 AM EST Follow Up Diabetes Consult Patient Interview Blood glucose values and insulin use reviewed. operational risk consultant BG to 59 despite decrease in glargine [...] [place]ISA clipping. PMH of chronic HFrEF s/p RN SOCIAL SERVICES/ICD, IDDM2, HTN, HLD, remote melanoma, active smoker. operational risk consultant BG to 59 despite decrease in glargine [...] based on ISF 20 Alejandra Baumann APRN [facility] Endocrinology Diabetes Management Pager [phone] Weekends please page [phone] Insulin Discharge Instructions Preliminary Diabetes Discharge Instructions [...] 2 tablespoons of dried fruit. Milk and iw-ldrty-digyo yogurt have 15 grams of carbs in a serving. A serving is 1 cup of milk or 3/4 cup (6 oz) of rc-xhghh-cvbrx yogurt. Starchy vegetables have 15 grams of carbs in a serving. A serving is ?? cup of mashed potatoes or sweet potato; 1 cup winter squash; ?? of a small baked potato; ?? cup of cooked beans; or ?? cup cooked corn or green peas. Learn how much carbs to eat each day and at each meal. A dietitian or certified medical asst can teach you how to keep track [...] [place] clipping. PMH of chronic HFrEF s/p RN SOCIAL SERVICES/ICD, IDDM2, HTN, HLD, remote melanoma, active smoker. [...] 90 Pt is followed by heart failure cardiac cath technologist at [facility] Tx to floor #IDDM2 DM team following pre-op Lantus, SSI Carb controlled diet #Active smoker Duoneb prn Dispo: Floor status, full code Discussed with attending surgeon on rounds this morning. Jeffy Hood MD 06/19/2024 Between the hours of 1800 - 0600 and on the weekends please page [phone]. * Alejandra Baumann, STAIN MAKER - 06/19/2024 7:09 AM EST Follow Up Diabetes Consult Patient Interview Blood glucose values and insulin use reviewed. Jardiance added back yesterday, lapidary apprentice low BGto 51. Glargine reduced to 45 [...] MARIALUISA clipping. PMH of chronic HFrEF s/p RN SOCIAL SERVICES/ICD, IDDM2, HTN, HLD, remote melanoma, active smoker. Jardiance added back yesterday. operational risk consultant low BG to 51. Glargine reduced to [...] 2 tablespoons of dried fruit. Milk and ys-nlexk-wkvcw yogurt have 15 grams of carbs in a serving. A serving is 1 cup of milk or 3/4 cup (6 oz) of nx-kotoo-vqach yogurt. Starchy vegetables have 15 grams of carbs in a serving. A serving is ?? cup of mashed potatoes or sweet potato; 1 cup winter squash; ?? of a small baked potato; ?? cup of cooked beans; or ?? cup cooked corn or green peas. Learn how much carbs to eat each day and at each meal. A dietitian or certified medical asst can teach you how to keep track [...] cheese, and peanut butter. Alejandra Baumann APRN [facility] Endocrinology Diabetes Management Pager [phone] Weekends please page [phone] * Hilda Resendez PTA - 06/18/2024 9:19 AM EST Physical Therapy Note 2 Patient profile: George Mehta is a 69 y.o. male with a history of CAD s/p multiple PCI who presented with an anterior STEMI and was given lytics. Cath showed MV CAD without culprit vessel. He is now 1 Day Post-Op CABGx3 and MARIALUISA clipping. PMH of chronic HFrEF s/p RN SOCIAL SERVICES/ICD, IDDM2, HTN, HLD, remote melanoma, active smoker. Interval History: Per last cardiac surgery note on 06/18/2024 Cr improved 1.4 on lasix 40 iv bid -1.5L, made 2.5L urine Coreg, entresto restarted Floor status Social History: Pt lives with his in a 1 level apartment with no steps to enter. 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 He sleeps in a recliner at baseline. Precautions/Special Considerations: Sternal precautions, PIV, at risk to fall, PPM Mobility and Positioning Recommendations: Pt to utilize no AD, supervision for ambulation and transfers w/ cruise staff member as able. Please encourage up to chair [...] least restrictive device Time IN / OUT: 9064-7861 Total Time: 11 minutes; TEF 1 Hilda Resendez PTA Pager: [phone] Physical Therapy Inpatient Rehabilitation Department * Keila Hanley, STAIN MAKER - 06/18/2024 8:48 AM EST Cardiac Surgery Progress Note George Mehta is a 69 y.o. male with a history of CAD s/p multiple PCI who presented with an anterior STEMI and was given lytics. Cath showed MV CAD without culprit vessel. He is now 4 Days Post-OpCABGx3 and MARIALUISA clipping. PMH of chronic HFrEF s/p RN SOCIAL SERVICES/ICD, IDDM2, HTN, HLD, remote melanoma, active smoker. [...] 90 Pt is followed by heart failure cardiac cath technologist at [facility], will get name for f/up appt Tx to floor #IDDM2 DM team following pre-op Lantus, SSI Carb controlled diet ? Restarting jardiance #Active smoker Duoneb prn Dispo: CVCC, Full code, tx to floor Discussed with attending surgeon on rounds this morning. KEILA HANLEY APRN 06/18/2024 Between the hours of 1800 - 0600 and on the weekends please page [phone]. * Alejandra Baumann, JOSÉ ANTONIO - 06/17/2024 [...] MARIALUISA clipping. PMH of chronic HFrEF s/p RN SOCIAL SERVICES/ICD, IDDM2, HTN, HLD, remote melanoma, active smoker. [...] based on ISF 20 Alejandra Baumann APRN [facility] Endocrinology Diabetes Management Pager [phone] Weekends please page [phone] 35 minutes were spent over the course [...] MARIALUISA clipping. PMH of chronic HFrEF s/p RN SOCIAL SERVICES/ICD, IDDM2, HTN, HLD, remote melanoma, active smoker. [...] 0600 and on the weekends please page [phone]. * Raymond Carlton MD - 06/16/2024 1:11 PM EST CARDIAC CRITICAL CARE ATTENDING STAFF PROGRESS NOTE Patient seen and examined. George Mehta is a 69 y.o. male with: Active Hospital Problems Diagnosis STEMI (ST elevation myocardial infarction) Cardiac resynchronization therapy defibrillator (RN SOCIAL SERVICES-D) - Medtronic Amplia Cardiomyopathy, ischemic Acute on chronic heart failure with reduced ejection fraction (HFrEF, <= 40%) Coronary artery disease involving [place] coronary artery of [place] heart without angina pectoris Type 2 diabetes [...] encouragement provided Patient screened for f/u and engineering writer met pt at bedside. Pt states [...] unless consulted in the interim. RICHA Simmons Control Chemist * Octaviano Horvath PA - 06/16/2024 8:07 AM EST Cardiac Surgery Progress Note George Mehta is a 69 y.o. male with a history of CAD s/p multiple PCI who presented with an anterior STEMI and was given lytics. Cath showed MV CAD without culprit vessel. He is now 2 Days Post-OpCABGx3 and MARIALUISA clipping. PMH of chronic HFrEF s/p RN SOCIAL SERVICES/ICD, IDDM2, HTN, HLD, remote melanoma, active smoker. [...] 0600 and on the weekends please page [phone]. * Jono Fernandez PT - 06/15/2024 4:09 PM EST Physical Therapy Evaluation Patient profile: George Mehta is a 69 y.o. male with a history of CAD s/p multiple PCI who presented with an anterior STEMI and was given lytics. Cath showed MV CAD without culprit vessel. He is now 1 Day Post-Op CABGx3 and MARIALUISA clipping. PMH of chronic HFrEF s/p RN SOCIAL SERVICES/ICD, IDDM2, HTN, HLD, remote melanoma, active smoker. 24h Events: From OR on Dobutamine IABP removed Bedrest ended ~2100, sedation weaned Extubated ~0200 Dobutamine weaned to 1 this morning, CI 2.6, shut off and repeat CI 2.4 Social History: Pt lives with his in a 1 level apartment with no steps to enter. 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 He [...] outlined inthis evaluation. JONO FERNANDEZ, PT Pager: [phone] Physical Therapy Inpatient Rehabilitation Department Time IN / OUT: 4306-8080 Total Time: 33 (eval) minutes * Alejandra Baumann, STAIN MAKER - 06/15/2024 11:39 AM EST Follow Up Diabetes Consult Patient Interview Blood glucose values and insulin use reviewed. Pt remains on an insulin drip today following [id number] MARIALUISA clipping. George continues to complain of [...] MARIALUISA clipping. PMH of chronic HFrEF s/p RN SOCIAL SERVICES/ICD, IDDM2, HTN, HLD, remote melanoma, active smoker. [...] based on ISF 20 Alejandra Baumann APRN [facility] Endocrinology Diabetes Management Pager [phone] Weekends please page [phone] 50 minutes were spent over the course [...] elevation myocardial infarction) Cardiac resynchronization therapy defibrillator (RN SOCIAL SERVICES-D) - Medtronic Amplia Cardiomyopathy, ischemic Acute on chronic heart failure with reduced ejection fraction (HFrEF, <= 40%) Coronary artery disease involving [place] coronary artery of [place] heart without angina pectoris Type 2 diabetes [...] with h/o DM, CAD with prior PCI, RN SOCIAL SERVICES-D who presented with crushing chest pain, found [...] MARIALUISA clipping. PMH of chronic HFrEF s/p RN SOCIAL SERVICES/ICD, IDDM2, HTN, HLD, remote melanoma, active smoker. [...] sternotomy dressing CDI, saphenectomy dressing CDi Tubes/Lines/Drains: [place], RIJ, A-line, Mediastinal marcos and bilateral pleural [...] 0600 and on the weekends please page [phone]. * Yoli Donaldson, CUSHION GUM APPLICATOR - 06/15/2024 5:35 AM EST AMV Protocol: [...] with h/o DM, CAD with prior PCI, RN SOCIAL SERVICES-D who presented with crushing chest pain, found [...] 1.5 PTT 31 T/L/D Barr ETT CVL [place] Pacing wires ASSESSMENT, MANAGEMENT, and DECISION MAKIN y.o. male with h/o DM, CAD with prior PCI, RN SOCIAL SERVICES-D who presented with crushing chest pain, found [...] 0600 and on the weekends please page [phone]. * Chloé Cortez - 06/14/2024 9:36 AM [...] unless consulted in the interim. Chloé Cortez Wire Weaving Loom Setter * Jim Benites MD - 06/13/2024 1:15 [...] - Mildly dilated left ventricle size with cpecxlai-dz-nssazjlx decreased LV systolic function. LV ejection fraction [...] ACS/crushing chest pain, likely due to lateral UT, found to have surgical CAD with viability [...] elevation myocardial infarction) Cardiac resynchronization therapy defibrillator (RN SOCIAL SERVICES-D) - Medtronic Amplia Cardiomyopathy, ischemic Acute on chronic heart failure with reduced ejection fraction (HFrEF, <= 40%) Coronary artery disease involving [place] coronary artery of [place] heart without angina pectoris Type 2 diabetes [...] PCP: Mauro Berumen MD PCP phone number: [phone] Date of Admission: 06/02/2024 ( Hospital Day 10 days ) Attending:Ethel Carrillo MD ID: 69 y.o. male with a h/o DM type 2, HTN, HLD, current smoker (2-3 cigarettes/day), HFrEF with anICD for low EF (~30%), and CAD with prior UT x3 with JENNA placed in [facility], presented to [facility] with 1 hour of retrosternal CP (05/13) while watching TV, found to have STEMI. Active Problems: Active Hospital Problems Diagnosis STEMI (ST elevation myocardial infarction) Cardiac resynchronization therapy defibrillator (RN SOCIAL SERVICES-D) - Medtronic Amplia Cardiomyopathy, ischemic Acute on chronic heart failure with reduced ejection fraction (HFrEF, <= 40%) Coronary artery disease involving [place] coronary artery of [place] heart without angina pectoris Type 2 diabetes [...] in the last 7068 hours. Invalid input(s): [id number] Recent Labs 06/12/24 0425 06/11/24 2356 06/11/24 2025 06/11/24 1624 06/11/24 1108 06/11/24 0748 06/11/24 0357 06/11/24 0050 06/10/24 1922 06/10/24 1735 06/10/24 1125 06/10/24 0746 POCGLU 132 135 210* 81 233* 184 132 144 236* 123 216* 206* Heme No results for input(s): LDH, HAPTOGLOBIN, URICACID in the last 168 hours. ABG (Arterial Blood Gas) No results found for: PHART, PO2ART, DST6OXE, JXO0VSE Microbiology: Microbiology Results (Last 30 days) No results found for the last 720 hours. Imaging: Results for orders placed or performed during the hospital encounter of 06/02/24 XR Chest One View (Exam End: 06/03/2024 2:41 AM) Result Value WORKSTATION ID [id number] Impression No radiographically evident acute cardiopulmonary process. Thank you for letting us participate in the care of this patient. If you are a health care provider and have any questions regarding this report, please contact the number below. For patients who have questions please contact the health hearing healthcare practitioner that requested your imaging first. Electronically signed by: Corazon Mauro MD, [facility] ([phone]), at 06/03/2024 3:06 AM MRI Cardiac Morphology Function wwo Contrast (Exam End: 06/07/2024 1:10 PM) Result Value WORKSTATION ID [id number] Impression - Findings consistent with an ischemic [...] - Mildly dilated left ventricle size with stuxdrei-fi-kplzarhn decreased LV systolic function. LV ejection fraction [...] who have questions please contact the health hearing healthcare practitioner that requested your imaging first. Electronically signed by: Kriss Alonzo MD, [facility] ([phone]), at 06/07/2024 2:[address] Chest wo Contrast (Generic) (Exam End: 06/03/2024 4:33 PM) Result Value WORKSTATION ID [id number] Impression Cardiomegaly. Biventricular ICD leads in place. Thank you for letting us participate in the care of this patient. If you are a health care provider and have any questions regarding this report, please contact the number below. For patients who have questions please contact the health hearing healthcare practitioner that requested your imaging first. Electronically signed by: Stuart Aponte MD, [facility] ([phone]), at 06/03/2024 4:47 PM XR Chest PA & Lateral (Generic) (Exam End: 06/07/2024 7:03 AM) Result Value WORKSTATION ID [id number] Impression Biventricular ICD leads intact and in [...] who have questions please contact the health hearing healthcare practitioner that requested your imaging first. Electronically signed by: Stuart Aponte MD, [facility] ([phone]), at 06/07/2024 10:45 AM TTE: Limited echo performed by fellow credit professional to assess LV function. Left ventricle is [...] ischemic cardiomyopathy with HFrEF (~30% EF), prior UT with stents, DM type 2, HTN, HLD, active smoker, presented with anterior STEMI. Angiography revealed severe multivessel CAD with extensive calcification and YUE 3 flow in all vessels, without a clear culprit lesion. Currently pain-free after TNK, Plavix, ASA, and heparin, with mildly elevated LVEDP at 40 mmHg and mild volume overload. 06/12/24: Patient stable, asymptomatic. Plan to go to manager lab for balloon pump tomorrow, then willgo to [...] CODE Dain Colón MD Cardiology, M1-S2, Pager #[phone] 06/12/24 Associated attestation - Ethel Carrillo MD [...] of two midnights or is on the [facility] inpatient only procedure list (status C) due to: acute myocardial infarction requiring titration of IV medication and fluid monitoring and decompensated congestive heart failure requiring IV medication and fluid monitoring Ethel Carrillo MD Cardiovascular Medicine Personal Pager [phone] 06/12/2024 9:12 PM * Alejandra Baumann, STAIN MAKER - 06/11/2024 4:21 PM EST Images from [...] too aggressive, suggest ICR 1:6 (rule of [id number] = 6.25). George is up and walking [...] ischemic cardiomyopathy with HFrEF (~30% EF), prior UT with stents, DM type 2, HTN, HLD, [...] on placing this weekend and transfer to [facility], likely Friday. With lower BG following [...] ac, metformin 1000mg BID Alejandra Baumann APRN [facility] Endocrinology Diabetes Management Pager [phone] Weekends please page [phone] 35 minutes were spent over the course [...] PCP: Mauro Berumen MD PCP phone number: [phone] Date of Admission: 06/02/2024 ( Hospital Day 9 days ) Attending:Melida Valdes MD ID: 69 y.o. male with a h/o DM type 2, HTN, HLD, current smoker (2-3 cigarettes/day), HFrEF with anICD for low EF (~30%), and CAD with prior UT x3 with JENNA placed in [place], Melanoma, PAD, presented to [facility] with 1 hour of retrosternal CP (05/13) while watching TV, found to have STEMI. Active Problems: Active Hospital Problems Diagnosis STEMI (ST elevation myocardial infarction) Cardiac resynchronization therapy defibrillator (RN SOCIAL SERVICES-D) - Medtronic Amplia Cardiomyopathy, ischemic Acute on chronic heart failure with reduced ejection fraction (HFrEF, <= 40%) Coronary artery disease involving [place] coronary artery of [place] heart without angina pectoris Type 2 diabetes [...] in the last 7068 hours. Invalid input(s): [id number] Recent Labs 06/11/24 0357 06/11/24 0050 06/10/24 1922 06/10/24 1735 06/10/24 1125 06/10/24 0746 06/10/24 0423 06/10/24 0005 06/09/24 2036 06/09/24 1727 06/09/24 1152 06/09/24 0810 POCGLU 132 144 236* 123 216* 206* 154 125 197 174 211* 209* Heme No results for input(s): LDH, HAPTOGLOBIN, URICACID in the last 168 hours. ABG (Arterial Blood Gas) No results found for: PHART, PO2ART, NDH5OAV, CXD8FCU Microbiology: Microbiology Results (Last 30 days) No results found for the last 720 hours. Imaging: Results for orders placed or performed during the hospital encounter of 06/02/24 XR Chest One View (Exam End: 06/03/2024 2:41 AM) Result Value WORKSTATION ID [id number] Impression No radiographically evident acute cardiopulmonary process. Thank you for letting us participate in the care of this patient. If you are a health care provider and have any questions regarding this report, please contact the number below. For patients who have questions please contact the health hearing healthcare practitioner that requested your imaging first. Electronically signed by: Corazon Mauro MD, [facility] ([phone]), at 06/03/2024 3:06 AM MRI Cardiac Morphology Function wwo Contrast (Exam End: 06/07/2024 1:10 PM) Result Value WORKSTATION ID [id number] Impression - Findings consistent with an ischemic [...] - Mildly dilated left ventricle size with ozkwyqni-wv-pchejqvu decreased LV systolic function. LV ejection fraction [...] who have questions please contact the health hearing healthcare practitioner that requested your imaging first. Electronically signed by: Kriss Alonzo MD, [facility] ([phone]), at 06/07/2024 2:[address] Chest wo Contrast (Generic) (Exam End: 06/03/2024 4:33 PM) Result Value WORKSTATION ID [id number] Impression Cardiomegaly. Biventricular ICD leads in place. Thank you for letting us participate in the care of this patient. If you are a health care provider and have any questions regarding this report, please contact the number below. For patients who have questions please contact the health hearing healthcare practitioner that requested your imaging first. Electronically signed by: Stuart Aponte MD, [facility] ([phone]), at 06/03/2024 4:47 PM XR Chest PA & Lateral (Generic) (Exam End: 06/07/2024 7:03 AM) Result Value WORKSTATION ID [id number] Impression Biventricular ICD leads intact and in [...] who have questions please contact the health hearing healthcare practitioner that requested your imaging first. Electronically signed by: Stuart Aponte MD, [facility] ([phone]), at 06/07/2024 10:45 AM TTE: Limited echo performed by fellow credit professional to assess LV function. Left ventricle is [...] Infusions: heparin (porcine) infusion 1,400 Units/hr (06/10/24 3189) PRN Meds:.insulin lispro, glucose 40% oral geL [...] ischemic cardiomyopathy with HFrEF (~30% EF), prior UT with stents, DM type 2, HTN, HLD, [...] on Friday, likely Friday then transfer to [facility] #HFrEF (Ischemic Cardiomyopathy): -Monitor I&O and [...] CODE Dain Colón MD Cardiology, M1-S2, Pager #[phone] 06/11/24 Associated attestation - Ethel Carrillo MD [...] of two midnights or is on the [facility] inpatient only procedure list (status C) due to: acute myocardial infarction requiring titration of IV medication and fluid monitoring and decompensated congestive heart failure requiring IV medication and fluid monitoring Ethel Carrillo MD Cardiovascular Medicine Personal Pager [phone] 06/11/2024 9:35 PM * Hilary Belle - 06/10/2024 12:39 PM EST Nutrition Services Note George Mehta is a 69 y.o. male Reason for intervention: hospital day 9 Nutrition Plan: Continue diet order: 60/60/75 CHO Level 2 Encourage good PO Lasix and Insulin noted Monitor weight Patient scheduled for a hospital day 9 nutrition evaluation. Dyed Raw Stock Blower Feeder attempted to meet with pt at bedside [...] unless consulted in the interim. Hilary Belle Control Chemist * Mariia Montero RN - 06/10/2024 12:23 PM EST I have met with the patient to: discuss discharge planning needs. provide the [facility], Office of Care Management letter from the Bleach Boiler Puller pertaining to rehab referrals. provide a letter describing our affiliations within the [facility] and educate about their right to choose where referrals are sent. provide a list of Home Health Agencies / Durable Medical Equipment vendors which serve their preferred geographic area. provided patient with [facility] Star Quality Rating handout. They have requested referrals to: [facility]. [address] [place] [id number] RN / PT Anticipated d/c date: 06/20/24 Note routed to a Steel Layer who will communicate referrals to facilities and provide any required information. * Dain Colón MD - 06/10/2024 7:17 AM EST Images from the original note were not included. . Cardiology Progress Note Patient info: Name: George Mehta : 1955 PCP: Mauro Berumen MD PCP phone number: [phone] Date of Admission: 06/02/2024 ( Hospital Day 8 days ) Attending:Melida Valdes MD ID: 69 y.o. male with a h/o DM type 2, HTN, HLD, current smoker (2-3 cigarettes/day), HFrEF with anICD for low EF (~30%), and CAD with prior UT x3 with JENNA placed in [place], Melanoma, PAD, presented to [facility] with 1 hour of retrosternal CP (05/13) while watching TV, found to have STEMI. Active Problems: Active Hospital Problems Diagnosis STEMI (ST elevation myocardial infarction) Cardiac resynchronization therapy defibrillator (RN SOCIAL SERVICES-D) - Medtronic Amplia Cardiomyopathy, ischemic Acute on chronic heart failure with reduced ejection fraction (HFrEF, <= 40%) Coronary artery disease involving [place] coronary artery of [place] heart without angina pectoris Type 2 diabetes [...] in the last 7068 hours. Invalid input(s): [id number] Recent Labs 06/10/24 0423 06/10/24 0005 06/09/24 2036 06/09/24 1727 06/09/24 1152 06/09/24 0810 06/09/24 0440 06/09/24 0034 06/08/24 2027 06/08/24 1616 06/08/24 1235 06/08/24 0810 POCGLU 154 125 197 174 211* 209* 131 186 176 159 226* 190 Heme No results for input(s): LDH, HAPTOGLOBIN, URICACID in the last 168 hours. ABG (Arterial Blood Gas) No results found for: PHART, PO2ART, PCL4CGH, IAJ5HEK Microbiology: Microbiology Results (Last 30 days) No results found for the last 720 hours. Imaging: Results for orders placed or performed during the hospital encounter of 06/02/24 XR Chest One View (Exam End: 06/03/2024 2:41 AM) Result Value WORKSTATION ID [id number] Impression No radiographically evident acute cardiopulmonary process. Thank you for letting us participate in the care of this patient. If you are a health care provider and have any questions regarding this report, please contact the number below. For patients who have questions please contact the health hearing healthcare practitioner that requested your imaging first. Electronically signed by: Corazon Mauro MD, [facility] ([phone]), at 06/03/2024 3:06 AM MRI Cardiac Morphology Function wwo Contrast (Exam End: 06/07/2024 1:10 PM) Result Value WORKSTATION ID [id number] Impression - Findings consistent with an ischemic [...] - Mildly dilated left ventricle size with wpvbsste-po-vxyexldy decreased LV systolic function. LV ejection fraction [...] who have questions please contact the health hearing healthcare practitioner that requested your imaging first. Electronically signed by: Kriss Alonzo MD, [facility] ([phone]), at 06/07/2024 2:[address] Chest wo Contrast (Generic) (Exam End: 06/03/2024 4:33 PM) Result Value WORKSTATION ID [id number] Impression Cardiomegaly. Biventricular ICD leads in place. Thank you for letting us participate in the care of this patient. If you are a health care provider and have any questions regarding this report, please contact the number below. For patients who have questions please contact the health hearing healthcare practitioner that requested your imaging first. Electronically signed by: Stuart Aponte MD, [facility] ([phone]), at 06/03/2024 4:47 PM XR Chest PA & Lateral (Generic) (Exam End: 06/07/2024 7:03 AM) Result Value WORKSTATION ID [id number] Impression Biventricular ICD leads intact and in [...] who have questions please contact the health hearing healthcare practitioner that requested your imaging first. Electronically signed by: Stuart Aponte MD, [facility] ([phone]), at 06/07/2024 10:45 AM TTE: Limited echo performed by fellow credit professional to assess LV function. Left ventricle is [...] ischemic cardiomyopathy with HFrEF (~30% EF), prior UT with stents, DM type 2, HTN, HLD, [...] plan on placing this and transfer to [facility], likely Friday. #ASCVD / STEMI: -Holding Plavix; continue ASA and heparin gtt. -Consult CT surgery for potential open revascularization. -Monitor telmetry -TTE -Viability planning per CT surgery - CT chest (complete) - Carotid duplex bilat (complete) - Cardiac MR (scheduled today Thursday 06/07) - Will need balloon pump prior to CABG on Friday, likely Friday then transfer to [facility] #HFrEF (Ischemic Cardiomyopathy): -Monitor I&O and [...] CODE Dain Colón MD Cardiology, M1-S2, Pager #[phone] 06/10/24 Associated attestation - Melida Valdes MD [...] a lytic and brought directly to the Can Line Operator. Cardiac catheterization demonstrated multivessel disease with [...] who is agreeable Melida Valdes MD Staff Hvac Engineering Technician * Cherelle Fregoso, JOSÉ ANTONIO - 06/09/2024 [...] ischemic cardiomyopathy with HFrEF (~30% EF), prior UT with stents, DM type 2, HTN, HLD, [...] PCP: Mauro Berumen MD PCP phone number: [phone] Date of Admission: 06/02/2024 ( Hospital Day 7 days ) Attending:Melida Valdes MD ID: 69 y.o. male with a h/o DM type 2, HTN, HLD, current smoker (2-3 cigarettes/day), HFrEF with anICD for low EF (~30%), and CAD with prior UT x3 with JENNA placed in [place], Melanoma, PAD, presented to [facility] with 1 hour of retrosternal CP (05/13) while watching TV, found to have STEMI. Active Problems: Active Hospital Problems Diagnosis STEMI (ST elevation myocardial infarction) Acute on chronic heart failure with reduced ejection fraction (HFrEF, <= 40%) Coronary artery disease involving [place] coronary artery of [place] heart without angina pectoris Type 2 diabetes [...] in the last 7068 hours. Invalid input(s): [id number] Recent Labs 06/09/24 0440 06/09/24 0034 06/08/24 2027 06/08/24 1616 06/08/24 1235 06/08/24 0810 06/08/24 0409 06/07/24 2357 06/07/24 2005 06/07/24 1631 06/07/24 1105 06/07/24 1103 POCGLU 131 186 176 159 226* 190 151 188 118 174 221* 250* Heme No results for input(s): LDH, HAPTOGLOBIN, URICACID in the last 168 hours. ABG (Arterial Blood Gas) No results found for: PHART, PO2ART, OHF8FFS, HLT9FXQ Microbiology: Microbiology Results (Last 30 days) No results found for the last 720 hours. Imaging: Results for orders placed or performed during the hospital encounter of 06/02/24 XR Chest One View (Exam End: 06/03/2024 2:41 AM) Result Value WORKSTATION ID [id number] Impression No radiographically evident acute cardiopulmonary process. Thank you for letting us participate in the care of this patient. If you are a health care provider and have any questions regarding this report, please contact the number below. For patients who have questions please contact the health hearing healthcare practitioner that requested your imaging first. Electronically signed by: Corazon Mauro MD, [facility] ([phone]), at 06/03/2024 3:06 AM MRI Cardiac Morphology Function wwo Contrast (Exam End: 06/07/2024 1:10 PM) Result Value WORKSTATION ID [id number] Impression - Findings consistent with an ischemic [...] - Mildly dilated left ventricle size with mlfbewml-qs-jtkuassh decreased LV systolic function. LV ejection fraction [...] who have questions please contact the health hearing healthcare practitioner that requested your imaging first. Electronically signed by: Kriss Alonzo MD, [facility] ([phone]), at 06/07/2024 2:[address] Chest wo Contrast (Generic) (Exam End: 06/03/2024 4:33 PM) Result Value WORKSTATION ID [id number] Impression Cardiomegaly. Biventricular ICD leads in place. Thank you for letting us participate in the care of this patient. If you are a health care provider and have any questions regarding this report, please contact the number below. For patients who have questions please contact the health hearing healthcare practitioner that requested your imaging first. Electronically signed by: Stuart Aponte MD, [facility] ([phone]), at 06/03/2024 4:47 PM XR Chest PA & Lateral (Generic) (Exam End: 06/07/2024 7:03 AM) Result Value WORKSTATION ID [id number] Impression Biventricular ICD leads intact and in [...] who have questions please contact the health hearing healthcare practitioner that requested your imaging first. Electronically [facility]: [facility] ([phone]), at 06/07/2024 10:45 AM TTE: Limited echo performed by fellow credit professional to assess LV function. Left ventricle is [...] Infusions: heparin (porcine) infusion 1,400 Units/hr (06/08/24 212) PRN Meds:.glucose 40% oral geL OR dextrose [...] ischemic cardiomyopathy with HFrEF (~30% EF), prior UT with stents, DM type 2, HTN, HLD, [...] CODE Dain Colón MD Cardiology, M1-S2, Pager #[phone] 06/09/24 Associated attestation - Melida Valdes MD [...] a lytic and brought directly to the Can Line Operator. Cardiac catheterization demonstrated multivessel disease with [...] insertion low EF. Melida Valdes MD Staff Hvac Engineering Technician * Alejandra Baumann, JOSÉ ANTONIO - 06/08/2024 [...] ischemic cardiomyopathy with HFrEF (~30% EF), prior UT with stents, DM type 2, HTN, HLD, [...] to optimize glucose control Alejandra Baumann APRN [facility] Endocrinology Diabetes Management Pager [phone] Weekends please page [phone] 35 minutes were spent over the course [...] PCP: Mauro Berumen MD PCP phone number: [phone] Date of Admission: 06/02/2024 ( Hospital Day 6 days ) Attending:Melida Valdes MD ID: 69 y.o. male with a h/o DM type 2, HTN, HLD, current smoker (2-3 cigarettes/day), HFrEF with anICD for low EF (~30%), and CAD with prior UT x3 with JENNA placed in [place], Melanoma, PAD, presented to [facility] with 1 hour of retrosternal CP (05/13) while watching TV, found to have STEMI. Active Problems: Active Hospital Problems Diagnosis STEMI (ST elevation myocardial infarction) Acute on chronic heart failure with reduced ejection fraction (HFrEF, <= 40%) Coronary artery disease involving [place] coronary artery of [place] heart without angina pectoris Type 2 diabetes [...] in the last 7068 hours. Invalid input(s): [id number] Recent Labs 06/08/24 0409 06/07/247 06/07/24200406/07/24 1631 06/07/24 1105 06/07/24 1103 06/07/24 0745 06/07/24 0425 06/07/24 0008 06/06/24201706/06/24 1539 06/06/24 1339 POCGLU 151 188 118 174 221* 250* 175 127 182 143 147 317* Heme No results for input(s): LDH, HAPTOGLOBIN, URICACID in the last 168 hours. ABG (Arterial Blood Gas) No results found for: PHART, PO2ART, SVY8KCZ, JVY7UBQ Microbiology: Microbiology Results (Last 30 days) No results found for the last 720 hours. Imaging: Results for orders placed or performed during the hospital encounter of 06/02/24 XR Chest One View (Exam End: 06/03/2024 2:41 AM) Result Value WORKSTATION ID [id number] Impression No radiographically evident acute cardiopulmonary process. Thank you for letting us participate in the care of this patient. If you are a health care provider and have any questions regarding this report, please contact the number below. For patients who have questions please contact the health hearing healthcare practitioner that requested your imaging first. Electronically signed by: Corazon Mauro MD, [facility] ([phone]), at 06/03/2024 3:06 AM MRI Cardiac Morphology Function wwo Contrast (Exam End: 06/07/2024 1:10 PM) Result Value WORKSTATION ID [id number] Impression - Findings consistent with an ischemic [...] - Mildly dilated left ventricle size with tfrevuwm-xi-nrkeatbu decreased LV systolic function. LV ejection fraction [...] who have questions please contact the health hearing healthcare practitioner that requested your imaging first. Electronically signed by: Kriss Alonzo MD, [facility] ([phone]), at 06/07/2024 2:[address] Chest wo Contrast (Generic) (Exam End: 06/03/2024 4:33 PM) Result Value WORKSTATION ID [id number] Impression Cardiomegaly. Biventricular ICD leads in place. Thank you for letting us participate in the care of this patient. If you are a health care provider and have any questions regarding this report, please contact the number below. For patients who have questions please contact the health hearing healthcare practitioner that requested your imaging first. Electronically signed by: Stuart Aponte MD, [facility] ([phone]), at 06/03/2024 4:47 PM XR Chest PA & Lateral (Generic) (Exam End: 06/07/2024 7:03 AM) Result Value WORKSTATION ID [id number] Impression Biventricular ICD leads intact and in [...] who have questions please contact the health hearing healthcare practitioner that requested your imaging first. Electronically signed by: Stuart Aponte MD, [facility] ([phone]), at 06/07/2024 10:45 AM TTE: Limited echo performed by fellow credit professional to assess LV function. Left ventricle is [...] ischemic cardiomyopathy with HFrEF (~30% EF), prior UT with stents, DM type 2, HTN, HLD, [...] CODE Dain Colón MD Cardiology, M1-S2, Pager #[phone] 06/08/24 Associated attestation - Melida Valdes MD [...] a lytic and brought directly to the Can Line Operator. Cardiac catheterization demonstrated multivessel disease with [...] Otherwise clinically stable Melida Valdes MD Staff Hvac Engineering Technician * Ross Manuel PA - 06/07/2024 12:00 PM EST Cardiac Electrophysiology CIED Interrogation/Programming Note Asked by MRI staff to evaluate and program Medtronic RN SOCIAL SERVICES-D to allow for MR imaging. Patient Active Problem List Diagnosis ','STEMI (ST elevation myocardial infarction) Acute on chronic heart failure with reduced ejection fraction (HFrEF, <= 40%) Coronary artery disease involving [place] coronary artery of [place] heart without angina pectoris Type 2 diabetes mellitus Device Data: Medtronic Amplia MRI Quad RN SOCIAL SERVICES-D [id number] #[id number] 06/16/2019 RA Medtronic 4076 CapSureFix Novus [id number] 06/16/2019 RV Medtronic 6935M [id number] 06/16/2019 LV Medtronic 4298 Attain Performa MRI [id number] 06/16/2019 DDD @ 50/130/130 Adaptive Bi-V and LV VF >188bpm ATP, 35j x6 FVT >188-222bpm burst 2, 35jx5 VT Battery longevity: 2.5yrs; charge time 4s P wave: 2.3mV R wave: >20.0mV Atrial impedance: 458 ohms RV impedance: 646 ohms LV impedance: 722 ohms Atrial threshold: 0.5V @ 0.4ms RV threshold: LV threshold: 1.75V @ 0.4ms AP 0.2% PEGGER 97.7% AT/AF 0% Impression and Plan: 1. Interrogated device to determine suitability for MRI 2. Programmed to MRI safe mode - VOO @ 70 3. Scan performed 4. Programming restored to baseline settings 5. Reinterrogated to verify appropriate function and settings 6. Device follow up as previously scheduled Provider: HENOK Meyer EP Consult attending physician: Libby Barton MD EP Consult positional pager #[phone](EPMD) EP Device interrogation positional pager # [phone] * Dain Colón MD - 06/07/2024 7:09 AM EST Images from the original note were not included. . Cardiology Progress Note Patient info: Name: George Mehta : 1955 PCP: Mauro Berumen MD PCP phone number: [phone] Date of Admission: 06/02/2024 ( Hospital Day 5 days ) Attending:Melida Valdes MD ID: 69 y.o. male with a h/o DM type 2, HTN, HLD, current smoker (2-3 cigarettes/day), HFrEF with anICD for low EF (~30%), and CAD with prior UT x3 with JENNA placed in [place], Melanoma, PAD, presented to [facility] with 1 hour of retrosternal CP (05/13) while watching TV, found to have STEMI. Active Problems: Active Hospital Problems Diagnosis STEMI (ST elevation myocardial infarction) Acute on chronic heart failure with reduced ejection fraction (HFrEF, <= 40%) Coronary artery disease involving [place] coronary artery of [place] heart without angina pectoris Type 2 diabetes [...] in the last 7068 hours. Invalid input(s): [id number] Recent Labs 06/07/24 0425 06/07/24 0008 06/06/24 2018 06/06/24 1539 06/06/24 1339 06/06/24 1134 06/06/24 0757 06/06/24 0653 06/05/24 2231 06/05/24 1622 06/05/24 1134 06/05/24 0727 POCGLU 127 182 143 147 317* 264* 195 187 238* 205* 211* 166 Heme No results for input(s): LDH, HAPTOGLOBIN, URICACID in the last 168 hours. ABG (Arterial Blood Gas) No results found for: PHART, PO2ART, MIF7PZO, XWT3GCH Microbiology: Microbiology Results (Last 30 days) No results found for the last 720 hours. Imaging: Results for orders placed or performed during the hospital encounter of 06/02/24 XR Chest One View (Exam End: 06/03/2024 2:41 AM) Result Value WORKSTATION ID [id number] Impression No radiographically evident acute cardiopulmonary process. Thank you for letting us participate in the care of this patient. If you are a health care provider and have any questions regarding this report, please contact the number below. For patients who have questions please contact the health hearing healthcare practitioner that requested your imaging first. Electronically signed by: Corazon Mauro MD, [facility] ([phone]), at 06/03/2024 3:[address] Chest wo Contrast (Generic) (Exam End: 06/03/2024 4:33 PM) Result Value WORKSTATION ID [id number] Impression Cardiomegaly. Biventricular ICD leads in place. Thank you for letting us participate in the care of this patient. If you are a health care provider and have any questions regarding this report, please contact the number below. For patients who have questions please contact the health hearing healthcare practitioner that requested your imaging first. Electronically signed by: Stuart Aponte MD, [facility] ([phone]), at 06/03/2024 4:47 PM TTE: Limited echo performed by fellow credit professional to assess LV function. Left ventricle is [...] Continuous Infusions: heparin (porcine) infusion 1,400 Units/hr (06/06/246) PRN Meds:.insulin lispro, potassium chloride ER OR [...] ischemic cardiomyopathy with HFrEF (~30% EF), prior UT with stents, DM type 2, HTN, HLD, [...] Dain Colón MD (PGY-1) Cardiology, M1-S2, Pager #[phone] 06/07/24 Associated attestation - Melida Valdes MD [...] a lytic and brought directly to the Can Line Operator. Cardiac catheterization demonstrated multivessel disease with [...] for further guidance. Melida Valdes MD Staff Hvac Engineering Technician * Dain Colón MD - 06/06/2024 7:17 AM EST Images from the original note were not included. . Cardiology Progress Note Patient info: Name: George Mehta : 1955 PCP: Mauro Berumen MD PCP phone number: [phone] Date of Admission: 06/02/2024 ( Hospital Day 4 days ) Attending:Melida Valdes MD ID: 69 y.o. male with a h/o DM type 2, HTN, HLD, current smoker (2-3 cigarettes/day), HFrEF with anICD for low EF (~30%), and CAD with prior UT x3 with JENNA placed in [place], Melanoma, PAD, presented to [facility] with 1 hour of retrosternal CP (05/13) while watching TV, found to have STEMI. Active Problems: Active Hospital Problems Diagnosis STEMI (ST elevation myocardial infarction) Acute on chronic heart failure with reduced ejection fraction (HFrEF, <= 40%) Coronary artery disease involving [place] coronary artery of [place] heart without angina pectoris Type 2 diabetes [...] in the last 7068 hours. Invalid input(s): [id number] Recent Labs 06/06/24 0653 06/05/24 2231 06/05/24 1622 06/05/24 1134 06/05/24 0727 06/04/24 1943 06/04/24 1526 06/04/24 1109 06/04/24 0711 06/03/24 2005 06/03/24 1748 06/03/24 1114 POCGLU 187 238* 205* 211* 166 175 154 188 182 136 191 166 Heme No results for input(s): LDH, HAPTOGLOBIN, URICACID in the last 168 hours. ABG (Arterial Blood Gas) No results found for: PHART, PO2ART, KBZ3OMK, CVJ5TWH Microbiology: Microbiology Results (Last 30 days) No results found for the last 720 hours. Imaging: Results for orders placed or performed during the hospital encounter of 06/02/24 XR Chest One View (Exam End: 06/03/2024 2:41 AM) Result Value WORKSTATION ID [id number] Impression No radiographically evident acute cardiopulmonary process. Thank you for letting us participate in the care of this patient. If you are a health care provider and have any questions regarding this report, please contact the number below. For patients who have questions please contact the health hearing healthcare practitioner that requested your imaging first. Electronically signed by: Corazon Mauro MD, [facility] ([phone]), at 06/03/2024 3:[address] Chest wo Contrast (Generic) (Exam End: 06/03/2024 4:33 PM) Result Value WORKSTATION ID [id number] Impression Cardiomegaly. Biventricular ICD leads in place. Thank you for letting us participate in the care of this patient. If you are a health care provider and have any questions regarding this report, please contact the number below. For patients who have questions please contact the health hearing healthcare practitioner that requested your imaging first. Electronically signed by: Stuart Aponte MD, [facility] ([phone]), at 06/03/2024 4:47 PM TTE: Limited echo performed by fellow credit professional to assess LV function. Left ventricle is [...] ischemic cardiomyopathy with HFrEF (~30% EF), prior UT with stents, DM type 2, HTN, HLD, [...] Dain Colón MD (PGY-1) Cardiology, M1-S2, Pager #[phone] 06/06/24 Associated attestation - Melida Valdes MD [...] a lytic and brought directly to the Can Line Operator. Cardiac catheterization demonstrated multivessel disease with [...] management. Help appreciated Melida Valdes MD Staff Hvac Engineering Technician * Frederick Dunn MD - 06/05/2024 8:13 AM EDT Images from the original note were not included. . Cardiology Progress Note Patient info: Name: Georeg Mehta : 1955 PCP: Mauro Berumen MD PCP phone number: [phone] Date of Admission: 06/02/2024 ( Hospital Day 3 days ) Attending:Melida Valdes MD ID: 69 y.o. male with a h/o DM type 2, HTN, HLD, current smoker (2-3 cigarettes/day), HFrEF with anICD for low EF (~30%), and CAD with prior UT x3 with JENNA placed in [place], Melanoma, PAD, presented to [facility] with 1 hour of retrosternal CP (05/13) [...] in the last 7068 hours. Invalid input(s): [id number] Recent Labs 06/05/24 1134 06/05/24 0727 06/04/24 1943 06/04/24 1526 06/04/24 1109 06/04/24 0711 06/03/24 2005 06/03/24 1748 06/03/24 1114 06/03/24 0754 06/02/24 2331 POCGLU 211* 166 175 154 188 182 136 191 166 195 156 Heme No results for input(s): LDH, HAPTOGLOBIN, URICACID in the last 168 hours. ABG (Arterial Blood Gas) No results found for: PHART, PO2ART, VYB8RXA, QTT9DDI Microbiology: Microbiology Results (Last 30 days) No results found for the last 720 hours. Imaging: Results for orders placed or performed during the hospital encounter of 06/02/24 XR Chest One View (Exam End: 06/03/2024 2:41 AM) Result Value WORKSTATION ID [id number] Impression No radiographically evident acute cardiopulmonary process. Thank you for letting us participate in the care of this patient. If you are a health care provider and have any questions regarding this report, please contact the number below. For patients who have questions please contact the health hearing healthcare practitioner that requested your imaging first. Electronically signed by: Corazon Mauro MD, [facility] ([phone]), at 06/03/2024 3:[address] Chest wo Contrast (Generic) (Exam End: 06/03/2024 4:33 PM) Result Value WORKSTATION ID [id number] Impression Cardiomegaly. Biventricular ICD leads in place. Thank you for letting us participate in the care of this patient. If you are a health care provider and have any questions regarding this report, please contact the number below. For patients who have questions please contact the health hearing healthcare practitioner that requested your imaging first. Electronically signed by: Stuart Aponte MD, [facility] ([phone]), at 06/03/2024 4:47 PM TTE: Limited echo performed by fellow credit professional to assess LV function. Left ventricle is [...] ischemic cardiomyopathy with HFrEF (~30% EF), prior UT with stents, DM type 2, HTN, HLD, [...] all the information they need regarding the RN SOCIAL SERVICES-D.Plan for MRI tomorrow. Starting 40 mg IV [...] a lytic and brought directly to the Can Line Operator. Cardiac catheterization demonstrated multivessel disease with [...] maintenance of 40. Melida Valdes MD Staff Hvac Engineering Technician * Migel Javier RN - 06/05/2024 6:21 AM EDT Implanted device record scanned into: Chart Review-->Media-->External Cardiology-->03/25/2024. Medtronic Amplia MRI Quad CRTD [id number] Serial #: [id number] DDD mode A + Bi/V Rates 50-130 Migel Javier RN * Dain Colón MD - 06/04/2024 11:16 AM EDT Implant Records Requested Type: RN SOCIAL SERVICES-D Supervisor Cured Meats: Medtronic Product: [id number] Amplia MRI MRI compatibility: Compatible for 1.5-3 T Model #: [id number] Placed at: [place], [place] Records requested for MRI: 1. Operative report 2. Implant log I requested that these records be sent to our MRI department, Dain Colón MD 06/04/24 11:58 AM * Dain Colón MD - 06/04/2024 6:57 AM EDT Images from the original note were not included. . Cardiology Progress Note Patient info: Name: George Mehta : 1955 PCP: Mauro Berumen MD PCP phone number: [phone] Date of Admission: 06/02/2024 ( Hospital Day 2 days ) Attending:Delroy Fofana MD ID: 69 y.o. male with a h/o DM type 2, HTN, HLD, current smoker (2-3 cigarettes/day), HFrEF with anICD for low EF (~30%), and CAD with prior UT x3 with JENNA placed in [place], Melanoma, PAD, presented to [facility] with 1 hour of retrosternal CP (05/13) [...] in the last 7068 hours. Invalid input(s): [id number] Recent Labs 06/03/24 2005 06/03/24 1748 06/03/24 1114 06/03/24 0754 06/02/24 2331 POCGLU 136 191 166 195 156 Heme No results for input(s): LDH, HAPTOGLOBIN, URICACID in the last 168 hours. ABG (Arterial Blood Gas) No results found for: PHART, PO2ART, CMM5ZRV, NMK3ABB Microbiology: Microbiology Results (Last 30 days) No results found for the last 720 hours. Imaging: Results for orders placed or performed during the hospital encounter of 06/02/24 XR Chest One View (Exam End: 06/03/2024 2:41 AM) Result Value WORKSTATION ID [id number] Impression No radiographically evident acute cardiopulmonary process. Thank you for letting us participate in the care of this patient. If you are a health care provider and have any questions regarding this report, please contact the number below. For patients who have questions please contact the health hearing healthcare practitioner that requested your imaging first. Electronically signed by: Corazon Mauro MD, [facility] ([phone]), at 06/03/2024 3:[address] Chest wo Contrast (Generic) (Exam End: 06/03/2024 4:33 PM) Result Value WORKSTATION ID [id number] Impression Cardiomegaly. Biventricular ICD leads in place. Thank you for letting us participate in the care of this patient. If you are a health care provider and have any questions regarding this report, please contact the number below. For patients who have questions please contact the health hearing healthcare practitioner that requested your imaging first. Electronically signed by: Stuart Aponte MD, [facility] ([phone]), at 06/03/2024 4:47 PM TTE: Limited echo performed by fellow credit professional to assess LV function. Left ventricle is [...] ischemic cardiomyopathy with HFrEF (~30% EF), prior UT with stents, DM type 2, HTN, HLD, [...] 40 mg IV given in the manager lab; assess diuretic response, consider re-dosing -Continue carvedilol; [...] @CODESTATUS@ Dain Colón MD (PGY-1) Cardiology M1-S2, #[id number] 06/04/2024, 6:57 AM Associated attestation - Melida [...] a lytic and brought directly to the Can Line Operator. Cardiac catheterization demonstrated multivessel disease with [...] Friday -Diuresis with Jovanni Valdes MD Staff Hvac Engineering Technician * Fatmata Mcallister PT - 06/03/2024 [...] vs PCI) Fatmata Mcallister PT, MSPT Pager [phone] Inpatient Physical Therapy * Marlin Gómez MD [...] with benign appearing R radial access site. Malrin Gómez MD Cardiology S2, Pager # [phone] 06/03/2024 * Delroy Fofana MD - 06/03/2024 7:16 AM EDT Images from the original note were not included. . Cardiology Progress Note Patient info: Name: George Mehta : 1955 PCP: Mauro Berumen MD PCP phone number: [phone] Date of Admission: 06/02/2024 ( Hospital Day 1 day ) Attending:Nuha Rojo MD ID: 69 y.o. male with a h/o DM type 2, HTN, HLD, current smoker (2-3 cigarettes/day), HFrEF with anICD for low EF (~30%), and CAD with prior UT x3 with JENNA placed in [place], Melanoma, PAD, presented to [facility] with 1 hour of retrosternal CP (05/13) [...] in the last 7068 hours. Invalid input(s): DCHZEHPFKNS6S Recent Labs 06/02/24 2331 POCGLU 156 Heme No results for input(s): LDH, HAPTOGLOBIN, URICACID in the last 168 hours. ABG (Arterial Blood Gas) No results found for: PHART, PO2ART, GUQ7YVQ, QRE3ZRF Microbiology: Microbiology Results (Last 30 days) No results found for the last 720 hours. Imaging: Results for orders placed or performed during the hospital encounter of 06/02/24 XR Chest One View (Exam End: 06/03/2024 2:41 AM) Result Value WORKSTATION ID [id number] Impression No radiographically evident acute cardiopulmonary process. Thank you for letting us participate in the care of this patient. If you are a health care provider and have any questions regarding this report, please contact the number below. For patients who have questions please contact the health hearing healthcare practitioner that requested your imaging first. Electronically signed by: Corazon Mauro MD, [facility] ([phone]), at 06/03/2024 3:06 AM TTE: Limited echo performed by fellow credit professional to assess LV function. Left ventricle is [...] ischemic cardiomyopathy with HFrEF (~30% EF), prior UT with stents, DM type 2, HTN, HLD, [...] 40 mg IV given in the manager lab; assess diuretic response, consider re-dosing -Continue carvedilol; [...] of care per Dain Colón MD (medical staff coordinator). Please refer to his note above for details. Very pleasant 69 year old male but he is obese, diabetic, and he is a SMOKER with known prior CAD and moderately reduced LVEF (30%). He has a pacer. History of surgical resection of melanoma on his head. The patient was transferred overnight to [facility] as a STEMI. He was treated initially with a lytic (TNK) and brought directly to the manager lab. The cath demonstrated 3VD with diffuse disease [...] - 06/13/2024 10:58 AM EST ICU Blue (#[id number]) H&P Patient info: Name: George Mehta : 1955 PCP: Mauro Berumen MD PCP phone number: [phone] Date of Admission: 06/02/2024 ( Hospital Day 11 days ) Attending:Haja Byrnes MD ID: George Mehta is a 69 y.o. male with a h/o DM type 2, HTN, HLD, current smoker (2-3 cigarettes/day), HFrEF with an ICD for low EF (~30%), and CAD with prior UT x3 with JENNA placed in [place], Melanoma, PAD, presented to [facility] with 1 hour of retrosternal CP (05/13) while watching TV, foundto have STEMI. HPI: Shahnaz Scanlon H&P 06/02 69 y.o. male with a h/o DM type 2, HTN, HLD, current smoker (2-3 cigarettes/day), HFrEF with an ICD for low EF (~30%), and CAD with prior UT x3 with JENNA placed in [place], Melanoma, PAD, presented to [facility] with 1 hour of retrosternal CP (05/13) while watching TV. CP was non-radiating, not asso ciated with diaphoresis, nausea, or SOB. Denies orthopnea, MARTÍNEZ, palpitations, or LE edema. ECG showed findings consistent with anterior STEMI. He received TNK and was transferred for PCI. Coronary angiography showed a small, non-dominant RCA with acvb-zk-zjavkuof disease and a dominant,heavily calcified left system with prior stents in the LAD and OM. The LM bifurcates into the LAD and LCX, both heavily calcified. The proximal LCX has a 75% calcified, aneurysmal lesion, and an 80% calcified lesion distally before a large OM2. OM1 is a COOK CASHIER FOOD PREP with in-stent restenosis, filling retrograde via collaterals. [...] mg Lasix was administered in the manager lab. Cardiac surgery was consulted and plan for [...] Blood Gas) No results for input(s): PHART, SXB5DRD, PO2ART, VFF5BJG, LACTATEVEN, LKM3PXP, PFRATIOART2 in the last 168 hours. VBG (Venous Blood Gas) Recent Labs 06/10/24 1742 PHVEN 7.34 PO2VEN 24 MOP9HWT 27.4 Mixed Venous Sat No results for input(s): T4OTUK7 in the last 168 hours. Intake/Output Summary [...] in the last 7068 hours. Invalid input(s): HEQXDKGRQPW7Y Recent Labs 06/13/24 0741 06/13/24 0325 06/12/24 2353 06/12/24 1932 06/12/24 1541 06/12/24 1121 06/12/24 0800 06/12/24 0425 06/11/24 2356 06/11/24 2025 06/11/24 1624 06/11/24 1108 POCGLU 126 99 141 158 113 207* 169 132 135 210* 81 233* Heme No results for input(s): LDH, HAPTOGLOBIN, URICACID in the last 168 hours. ABG (Arterial Blood Gas) No results for input(s): PHART, FPX7LFQ, PO2ART, VNF2UPG, LACTATEVEN, GSU5RMT, PFRATIOART2 in the last 168 hours. VBG (Venous Blood Gas) Recent Labs 06/10/24 1742 PHVEN 7.34 PO2VEN 24 UZO7OHW 27.4 Mixed Venous Sat No results for input(s): V8DJVT7 in the last 168 hours. Microbiology: Microbiology Results (Last 30 days) No results found for the last 720 hours. Assessment & Plan: George Mehta is a 69 y.o. male with CAD, ischemic cardiomyopathy with HFrEF (~30% EF), prior UT with stents, DM type 2, HTN, HLD, [...] Plan for CABG 06/14. Patient NPO at [place]. #ASCVD / STEMI: -Holding Plavix; continue ASA [...] (Give Meds) Daily Healthy Menu Choices/Cardiac diet ([facility]-Diet) DVT Prophylaxis: SCD GI Prophylaxis: None Dispo: [...] TUD (abstinent since admission), ASCVD with multipleprior UT and PCIs, ICM/HFrEF LVEF 30% (all [...] is in the chart Rebeca Prado MD Manager Shipping PGY6 [id number] * Shahnaz Scanlon MD - [...] low EF (~30%), and CAD with prior UT x3 with JENNA placed in [place], [facility], [facility], presented to [facility] with 1 hour of retrosternal CP (05/13) while watching TV. CP was non-radiating, not assoc iated with diaphoresis, nausea, or SOB. Denies orthopnea, MARTÍNEZ, palpitations, or LE edema. ECG showed findings consistent with anterior STEMI. He received TNK and was transferred for PCI. Coronary angiography showed a small, non-dominant RCA with mwfe-sj-nbnwsziw disease and a dominant,heavily calcified left system with prior stents in the LAD and OM. The LM bifurcates into the LAD and LCX, both heavily calcified. The proximal LCX has a 75% calcified, aneurysmal lesion, and an 80% calcified lesion distally before a large OM2. OM1 is a C[employer] C[employer]OD PREP with in-stent restenosis, filling retrograde via collaterals. [...] mg Lasix was administered in the manager lab. Past Medical History: As per HPI Significant [...] Affect: Mood normal. Behavior: Behavior normal. Diagnostics: [facility] 06/02/2024 Coronary angiography revealed small non [...] ischemic cardiomyopathy with HFrEF (~30% EF), prior UT with stents, DM type 2, HTN, HLD, [...] 40 mg IV given in the manager lab; assess diuretic response. -Continue carvedilol; hold Entresto [...] & Follow-up Care: Contact information for follow-up [facility] [address] [facility] [address] Cardiac Rehab, [address] [address] JAMIE GRAMAJO confirmed with [facility] that they [...] N/A Patient is insured through: Primary Insurance: [facility] MANAGED MEDICARE Payor: AAR MANAGED MEDICARE / Plan: [facility] MANAGED MEDICARE COMPLETE / Product Type: [...] Roberts RN - 06/18/2024 10:50 AM EST [facility] CARDIAC REHABILITATION George Mehta was seen today regarding participation in the outpatient Phase 2 Cardiac Rehabilitation at [facility]. The patient agrees to a referral to [...] MEDICARE Payor: [employer] MANAGED MEDICARE / Plan: [facility] MANAGED MEDICARE COMPLETE / Product Type: *No Product type* / Secondary Insurance: N/A Last Physical Therapy Recommendation: (home with ) with to be determined (06/15/24 1028) Plan for discharge is: Home w/ Services Outpatient Agency/Support Group Needs: Homecare agency Agency Choices: [facility] Home Health Services: Medication checks, Registered Nurse, Physical Therapy Agency Referrals: pending clinical course and PT/OT recs [facility] [address] [facility] [address] PHONE: [phone] FAX: [phone] Transportation: family or friend will provide Barriers [...] Appropriate) * Plan of Care - Angeles Lorwy RN - 06/15/2024 6:07 PM EST OUTCOME [...] MEDICARE Payor: AAR MANAGED MEDICARE / Plan: [facility] MANAGED MEDICARE COMPLETE / Product Type: *No Product type* / Secondary Insurance: N/A Plan for discharge is: Home w/ Services Outpatient Agency/Support Group Needs: Homecare agency Agency Choices: [facility]: Medication checks, Registered Nurse, Physical Therapy Agency Referrals: pending clinical course and PT/OT recs [facility] [address] [place] [address] PHONE: [phone] FAX: [phone] Transportation: family or friend will provide Barriers [...] Loja MD - 06/14/2024 8:48 AM EST [facility] Operative Note Patient Name: George Mehta : [id number] MR#: [id number] Case Date: 06/14/2024 Surgeon: Surgeons and Role: * Bobby Loja MD - Primary * Rashi Bass PA - Physician Car Cooper Preoperative diagnosis: CAD, MARIALUISA flickering mass on [...] area. The patient was transported to the [facility] in a critical but stable condition [...] procedures today and tomorrow. Report called to [facility] - all belongings with patient. 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 INDIVIDUALIZED FALL [...] MEDICARE Payor: AAR MANAGED MEDICARE / Plan: [facility] MANAGED MEDICARE COMPLETE / Product Type: *No Product type* / Secondary Insurance: N/A Plan for discharge is: Home w/ Services Outpatient Agency/Support Group Needs: Homecare agency, Agency Choices: [facility] Home Health Services: Medication checks, Registered Nurse, Physical Therapy Agency Referrals: [facility] [address] [place] [address] RN / PT Routed 06/10 Transportation: family [...] with home health services when medically ready. assembler golf wood head/Environmental Health Technician will continue to follow patient???s progress and remain available if situation changes for coordination of care, psychosocial support and/or discharge planning. Anticipated Date of Discharge: 06/18/2024 [facility] Montero RN CM Extension [phone] * Plan of Care - Migel Javier [...] with no response. I reached out to Rsahi Bass PA-C regarding the concern. Rashi mentioned [...] No Patient is insured through: Primary Insurance: [facility] MANAGED MEDICARE Payor: [facility] MANAGED MEDICARE / Plan: [facility] MANAGED MEDICARE COMPLETE / Product Type: [...] consult for high risk PCI vs CABG assembler golf wood head/Environmental Health Technician will continue to follow patient???s progress and remain available if situation changes for coordination of care, psychosocial support and/or discharge planning. 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 Diabetes History: George Mehta has [...] Breakfast- varies - eggs with khoury or comoran muffin Lunch- turkey sandwich Supper- meat and [...] Infusions: heparin (porcine) infusion 1,400 Units/hr (06/06/24 5258) PRN: insulin lispro, potassium chloride ER OR [...] ischemic cardiomyopathy with HFrEF (~30% EF), prior UT with stents, DM type 2, HTN, HLD, [...] Baumann APRN Endocrinology Diabetes Management Service Pager: [phone] Weekends please page [phone] 80 minute visit was spent in counseling [...] y.o. male with a PMHx of previous UT s/p PCI x3, ICM/HFrEF (LVEF 30%) s/p ICD, DMII, HTN, HLD, remote melanoma, and smoker who presented to [facility] last night via EMS after developing acute, severe chest pain while watching TV. Patient was ruled in for STEMI, given TNK, ASA, plavix, heparin gtt, and sent to [facility] for coronary angiography. LHC demonstrated severely calcified left coronary system with notable LCx 75/80% lesions and C[employer] PREP OM1 with ISR with collateral retrograde filling, [...] elevation myocardial infarction) Past Medical History: previous UT s/p PCI x3 ICM/HFrEF (LVEF 30%) s/p [...] is large. OM1 appears to be a COOK CASHIER [employer]OD PREP, with in stentrestenosis and fills retrograde via [...] y.o. male admitted with STEMI s/p TNK, [facility] showing multivessel CAD including ISR, no [...] to our service. Signed: Paula Treviño PA-C [facility] Section of Cardiac Surgery Date: 06/03/2024 * Initial Assessments - Catina Estrada MSW - 06/03/2024 10:32 AM EDT Office of Care Management Initial Assessment CHINA Humphrey reviewed record and discussed patient with Care Team. Source of Information: Team, bedside nurse, medical record, and Patient SHUTTLE DRIVER Introduced self/reviewed role; services accepted. Admitted From: Transfer from another hospital Location: [facility] Reason for Hospitalization: Chest Pain [...] 180 days) Any patient receiving care in [place] must abide by [place] law. The hierarchy [...] (i) The agent with financial power of attorney general or a conservator appointed in accordance with [...] homeless or living in a chcf (including now)?: No In the past 12 [...] in the bathroom) Home Address confirmed as: [address] [place] [address] [address] [facility] [address] Social & Family Supports: All names listed [...] Pertinent/Service Specific Information: Health/Prescription Coverage: Primary Insurance: [facility] MEDICARE Payor: [facility] MEDICARE / Plan: [employer] RPPO MANAGED MEDICARE COMPLETE / Product Type: *No Product type* / Secondary Insurance: N/A ; Prescription Coverage: Yes Preferred Pharmacy: [facility] - [facility], [place] - [address] [facility] [address] [facility] [address] [place] Status: Patient is a : No Primary Care Provider confirmed: Mauro Berumen MD [phone] Patient/Caregiver Goals of Treatment: Potential Needs for [...] care as indicated. CHINA Min Cardiology, ext. [phone] * Brief Op Note - Angeles Gaxiola PA - 06/03/2024 12:23 AM EDT Preliminary Cardiac Catheterization Procedure Note: Patient Name: George Mehta : [id number] MR#: [id number] Case Date: 06/02/2024 - 06/03/2024 Director Electrical Engineering: Surgeons and Role: * Nuha Shen MD - Primary * Angeles Gaxiola PA - Physician Car Cooper Preoperative diagnosis: STEMI Postoperative diagnosis: * STEMI * Procedure(s) performed: RRA access [facility] Coronary angiogram IVUS LM/LAD/LCX Access: 6 Fr RRA A time-out was conducted prior to the start of the procedure to verify the correct patient and procedure, procedure location, and all relevant critical information. Preliminary findings: 69 year old current smoker (1-2 cigarette's per day), DM type 2, hypertension, dyslipidemia, ICD for HFrEF/low EF (~30%), CAD with prior UT and 3 stents historically (in [place]) who presented to [facility] with 1 hour of rest chest pain [...] is large. 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 Recommendations: surgical consult for possible open revascularization; [...] Vascular Unit Level 3 [place] [address] Jim Benites MD [facility] [place] [address] Scheduled Orders Name Type Priority Associated Diagnoses [...] PM EST BLOOD GAS ARTERIAL POC Routine 11/11/202 4 11:51 AM EST BLOOD GAS ARTERIAL [...] ARTERIAL POC Routine 4 8:39 AM EST TRANSESOPHAGEAL ECHOCARDIOGRAM IN THE OR Routine 06/14/2024 7:20 AM EST Coronary artery disease involving [place] coronary artery of [place] heart without angina pectoris POC, GLUCOSE Routine [...] * POC, GLUCOSE (06/21/2024 3:51 AM EST) [facility] Signature Glucometer, POC 142 65 - 199 mg/dL 06/21/2024 3:51 AM EST [facility] Comment:Supplemental ranges: <140 mg/dL before meals <180 mg/dL all other times of the day. Blood CAPILLARY BLOOD / Unknown 06/21/2024 3:51 AM EST 06/21/2024 3:51 AM EST Bobby Loja MD POINT OF CARE TEST O RDERABLES [facility] [place] [address] * (ABNORMAL) Basic Metabolic Panel (06/21/2024 2:09 [...] APRN CHEMISTRY ORDERABL ES Performing Organization Address [facility] Co de Phone Number [facility] [place] [address] * POC, GLUCOSE (06/21/2024 12:04 AM EST) Glucometer, POC 157 65 - 199 mg/dL 06/21/2024 12:04 AM EST [facility] Comment:Supplemental ranges: <140 mg/dL before meals <180 mg/dL all other times of the day. Blood CAPILLARY BLOOD / Unknown 06/21/2024 12:04 AM EST 06/21/2024 12:04 AM EST Bobby Loja MD POINT OF CARE TEST O NIKA Performing Organization Address [facility] Co de Phone Number [facility] [place] [address] * POC, GLUCOSE (06/20/2024 11:14 PM EST) Glucometer, POC 67 65 - 199 mg/dL 06/20/2024 11:14 PM EST [facility] Comment:Supplemental ranges: <140 mg/dL before meals <180 mg/dL all other times of the day. Blood CAPILLARY BLOOD / Unknown 06/20/2024 11:14 PM EST 06/20/2024 11:14 PM EST Bobby Loja MD POINT OF CARE TEST O NIKA Performing Organization Address [facility] Co de Phone Number [facility] [place] [address] * POC, GLUCOSE (06/20/2024 7:16 PM EST) Glucometer, POC 132 65 - 199 mg/dL 06/20/2024 7:16 PM EST [facility] Comment:Supplemental ranges: <140 mg/dL before meals <180 mg/dL all other times of the day. Blood CAPILLARY BLOOD / Unknown 06/20/2024 7:16 PM EST 06/20/2024 7:16 PM EST Bobby Loja MD POINT OF CARE TEST O NIKA Performing Organization Address City/[facility]/ZIP Co de Phone Number [facility] [place] [address] * POC, GLUCOSE (06/20/2024 3:39 PM EST) Glucometer, POC 124 65 - 199 mg/dL 06/20/2024 3:40 PM EST [facility] Comment:Supplemental ranges: <140 mg/dL before meals <180 mg/dL all other times of the day. Blood CAPILLARY BLOOD / Unknown 06/20/2024 3:39 PM EST 06/20/2024 3:40 PM EST Bobby Loja MD POINT OF CARE TEST O NIKA Performing Organization Address [facility]/ZIP Co de Phone Number [facility] [place] [address] * POC, GLUCOSE (06/20/2024 12:02 PM EST) Glucometer, POC 173 65 - 199 mg/dL 06/20/2024 12:03 PM EST [facility] Comment:Supplemental ranges: <140 mg/dL before meals <180 mg/dL all other times of the day. Blood CAPILLARY BLOOD / Unknown 06/20/2024 12:02 PM EST 06/20/2024 12:03 PM EST Narrative Authorizing Provider Result Saranya Loja MD POINT OF CARE TEST O NIKA [facility] [place] [address] * POC, GLUCOSE (06/20/2024 7:10 AM EST) Glucometer, POC 130 65 - 199 mg/dL 06/20/2024 7:11 AM EST [facility] Comment:Supplemental ranges: <140 mg/dL before meals <180 mg/dL all other times of the day. Blood CAPILLARY BLOOD / Unknown 06/20/2024 7:10 AM EST 06/20/2024 7:11 AM EST Bobby Loja MD POINT OF CARE TEST O NIKA [facility] [place] [address] * (ABNORMAL) Basic Metabolic Panel (06/20/2024 2:28 [...] [facility] Anion Gap 8 5 [...] APRN CHEMISTRY ORDERABL ES Performing Organization Address [facility] Co de Phone Number [facility] [place] [address] * POC, GLUCOSE (06/20/2024 12:32 AM EST) Glucometer, POC 86 65 - 199 mg/dL 06/20/2024 12:32 AM EST [facility] Comment:Supplemental ranges: <140 mg/dL before meals <180 mg/dL all other times of the day. Blood CAPILLARY BLOOD / Unknown 06/20/2024 12:32 AM EST 06/20/2024 12:32 AM EST Bobby Loja MD POINT OF CARE TEST O RDERABLES [facility] [place] [address] * (ABNORMAL) POC, GLUCOSE (06/20/2024 12:02 AM EST) Glucometer, POC 59(L) 65 - 199 mg/dL 06/20/2024 12:02 AM EST [facility] Comment:Supplemental ranges: <140 mg/dL before meals <180 mg/dL all other times of the day. Blood CAPILLARY BLOOD / Unknown 06/20/2024 12:02 AM EST 06/20/2024 12:03 AM EST Bobby Loja MD POINT OF CARE TEST O NIKA Performing Organization Address [facility] Co de Phone Number [facility] [place] [address] * POC, GLUCOSE (06/19/2024 8:15 PM EST) Glucometer, POC 131 65 - 199 mg/dL 06/19/2024 8:15 PM EST [facility] Comment:Supplemental ranges: <140 mg/dL before meals <180 mg/dL all other times of the day. Blood CAPILLARY BLOOD / Unknown 06/19/2024 8:15 PM EST 06/19/2024 8:15 PM EST Bobby Loja MD POINT OF CARE TEST O NIKA Performing Organization Address [facility] de Phone Number [facility] [place] [address] * POC, GLUCOSE (06/19/2024 6:01 PM EST) Glucometer, POC 129 65 - 199 mg/dL 06/19/2024 6:01 PM EST [facility] Comment:Supplemental ranges: <140 mg/dL before meals <180 mg/dL all other times of the day. Blood CAPILLARY BLOOD / Unknown 06/19/2024 6:01 PM EST 06/19/2024 6:02 PM EST Bobby oLja MD POINT OF CARE TEST O NIKA Performing Organization Address [facility] Co de Phone Number [facility] [place] [address] * POC, GLUCOSE (06/19/2024 4:51 PM EST) Glucometer, POC 155 65 - 199 mg/dL 06/19/2024 4:51 PM EST [facility] Comment:Supplemental ranges: <140 mg/dL before meals <180 mg/dL all other times of the day. Blood CAPILLARY BLOOD / Unknown 06/19/2024 4:51 PM EST 06/19/2024 4:51 PM EST Bobby Loja MD POINT OF CARE TEST O NIKA Performing Organization Address City/[facility]/ZIP Co de Phone Number [facility] [place] [address] * POC, GLUCOSE (06/19/2024 12:37 PM EST) Glucometer, POC 136 65 - 199 mg/dL 06/19/2024 12:37 PM EST [facility] Comment:Supplemental ranges: <140 mg/dL before meals <180 mg/dL all other times of the day. Blood CAPILLARY BLOOD / Unknown 06/19/2024 12:37 PM EST 06/19/2024 12:37 PM EST Bobby Loja MD POINT OF CARE TEST O NIKA Performing Organization Address [facility] Co de Phone Number [facility] [place] [address] * POC, GLUCOSE (06/19/2024 11:20 AM EST) Glucometer, POC 185 65 - 199 mg/dL 06/19/2024 11:21 AM EST [facility] Comment:Supplemental ranges: <140 mg/dL before meals <180 mg/dL all other times of the day. Blood CAPILLARY BLOOD / Unknown 06/19/2024 11:20 AM EST 06/19/2024 11:21 AM EST Narrative Authorizing Provider Result Saranya Loja MD POINT OF CARE TEST O NIKA Performing Organization Address City/[facility]/ZIP Co de Phone Number [facility] [place] [address] * POC, GLUCOSE (06/19/2024 7:21 AM EST) Glucometer, POC 125 65 - 199 mg/dL 06/19/2024 7:21 AM EST [facility] Comment:Supplemental ranges: <140 mg/dL before meals <180 mg/dL all other times of the day. Blood CAPILLARY BLOOD / Unknown 06/19/2024 7:21 AM EST 06/19/2024 7:22 AM EST Bobby Loja MD POINT OF CARE TEST O NIKA Performing Organization Address City/[facility]/ZIP Co de Phone Number [facility] [place] [address] * POC, GLUCOSE (06/19/2024 4:52 AM EST) Glucometer, POC 125 65 - 199 mg/dL 06/19/2024 4:52 AM EST [facility] Comment:Supplemental ranges: <140 mg/dL before meals <180 mg/dL all other times of the day. Blood CAPILLARY BLOOD / Unknown 06/19/2024 4:52 AM EST 06/19/2024 4:52 AM EST Bobby Loja MD POINT OF CARE TEST O NIKA Performing Organization Address [facility] Co de Phone Number [facility] [place] [address] * POC, GLUCOSE (06/19/2024 4:13 AM EST) Glucometer, POC 67 65 - 199 mg/dL 06/19/2024 4:13 AM EST [facility] Comment:Supplemental ranges: <140 mg/dL before meals <180 mg/dL all other times of the day. Blood CAPILLARY BLOOD / Unknown 06/19/2024 4:13 AM EST 06/19/2024 4:13 AM EST Bobby Loja MD POINT OF CARE TEST O NIKA Performing Organization Address City/[facility]/ZIP Co de Phone Number [facility] [place] [address] * (ABNORMAL) POC, GLUCOSE (06/19/2024 3:48 AM EST) Glucometer, POC 51(LLL) 65 - 199 mg/dL 06/19/2024 3:48 AM EST [facility] Comment:Supplemental ranges: <140 mg/dL before meals <180 mg/dL all other times of the day. Blood CAPILLARY BLOOD / Unknown 06/19/2024 3:48 AM EST 06/19/2024 3:48 AM EST Bobby Loja MD POINT OF CARE TEST O RDERABLES [facility] [place] [address] * (ABNORMAL) Basic Metabolic Panel (06/19/2024 3:44 AM EST) Glucose 53(LLL) 65 - 199 mg/dL 06/19/2024 4:48 AM [facility] Comment:Glucose Concentratio n >=200 mg/dL plus symptoms is consistent with Diabetes Mellitus. Blood Urea Nitrogen 42(H) 10 - 20 mg/dL 06/19/2024 4:48 AM [facility] Creatinine 1.29 0.80 - [...] APRN CHEMISTRY ORDERABL ES Performing Organization Address City/[facility]/ZIP Co de Phone Number [facility] [place] [address] * POC, GLUCOSE (06/19/2024 12:23 AM EST) Glucometer, POC 82 65 - 199 mg/dL 06/19/2024 12:23 AM EST [facility] Comment:Supplemental ranges: <140 mg/dL before meals <180 mg/dL all other times of the day. Blood CAPILLARY BLOOD / Unknown 06/19/2024 12:23 AM EST 06/19/2024 12:23 AM EST Bobby Loja MD POINT OF CARE TEST O RDERABLES [facility] [place] [address] * POC, GLUCOSE (06/18/2024 11:08 PM EST) Glucometer, POC 73 65 - 199 mg/dL 06/18/2024 11:08 PM EST [facility] Comment:Supplemental ranges: <140 mg/dL before meals <180 mg/dL all other times of the day. Blood CAPILLARY BLOOD / Unknown 06/18/2024 11:08 PM EST 06/18/2024 11:08 PM EST Bobby Loja MD POINT OF CARE TEST O NIKA Performing Organization Address City/[facility]/ZIP Co de Phone Number [facility] [place] [address] * POC, GLUCOSE (06/18/2024 7:32 PM EST) Glucometer, POC 167 65 - 199 mg/dL 06/18/2024 7:32 PM EST [facility] Comment:Supplemental ranges: <140 mg/dL before meals <180 mg/dL all other times of the day. Blood CAPILLARY BLOOD / Unknown 06/18/2024 7:32 PM EST 06/18/2024 7:32 PM EST Bobby Loja MD POINT OF CARE TEST O NIKA Performing Organization Address [facility] Co de Phone Number [facility] [place] [address] * POC, GLUCOSE (06/18/2024 6:08 PM EST) Glucometer, POC 140 65 - 199 mg/dL 06/18/2024 6:09 PM EST [facility] Comment:Supplemental ranges: <140 mg/dL before meals <180 mg/dL all other times of the day. Blood CAPILLARY BLOOD / Unknown 06/18/2024 6:08 PM EST 06/18/2024 6:09 PM EST Narrative Authorizing Provider Result Saranya Loja MD POINT OF CARE TEST O NIKA [facility] [place] [address] * POC, GLUCOSE (06/18/2024 4:17 PM EST) Glucometer, POC 144 65 - 199 mg/dL 06/18/2024 4:17 PM EST [facility] Comment:Supplemental ranges: <140 mg/dL before meals <180 mg/dL all other times of the day. Blood CAPILLARY BLOOD / Unknown 06/18/2024 4:17 PM EST 06/18/2024 4:17 PM EST Bobby Loja MD POINT OF CARE TEST O NIKA Performing Organization Address City/[facility]/ZIP Co de Phone Number [facility] [place] [address] * POC, GLUCOSE (06/18/2024 12:09 PM EST) Glucometer, POC 180 65 - 199 mg/dL 06/18/2024 12:09 PM EST [facility] Comment:Supplemental ranges: <140 mg/dL before meals <180 mg/dL all other times of the day. Blood CAPILLARY BLOOD / Unknown 06/18/2024 12:09 PM EST 06/18/2024 12:09 PM EST Bobby Loja MD POINT OF CARE TEST O NIKA Performing Organization Address [facility] Co de Phone Number [facility] [place] [address] * POC, GLUCOSE (06/18/2024 7:49 AM EST) Glucometer, POC 125 65 - 199 mg/dL 06/18/2024 7:50 AM EST [facility] Comment:Supplemental ranges: <140 mg/dL before meals <180 mg/dL all other times of the day. Blood CAPILLARY BLOOD / Unknown 06/18/2024 7:49 AM EST 06/18/2024 7:50 AM EST Bobby Loja MD POINT OF CARE TEST O NIKA Performing Organization Address City/[facility]/ZIP Co de Phone Number [facility] [place] [address] * (ABNORMAL) Basic Metabolic Panel (06/18/2024 4:19 [...] APRN CHEMISTRY ORDERABL ES Performing Organization Address [facility] Co de Phone Number [facility] [place] [address] * POC, GLUCOSE (06/18/2024 3:50 AM EST) Glucometer, POC 99 65 - 199 mg/dL 06/18/2024 3:51 AM EST [facility] Comment:Supplemental ranges: <140 mg/dL before meals <180 mg/dL all other times of the day. Blood CAPILLARY BLOOD / Unknown 06/18/2024 3:50 AM EST 06/18/2024 3:51 AM EST Bobby Loja MD POINT OF CARE TEST O NIKA Performing Organization Address [facility] Co de Phone Number [facility] [place] [address] * POC, GLUCOSE (06/17/2024 11:10 PM EST) Glucometer, POC 92 65 - 199 mg/dL 06/17/2024 11:10 PM EST [facility] Comment:Supplemental ranges: <140 mg/dL before meals <180 mg/dL all other times of the day. Blood CAPILLARY BLOOD / Unknown 06/17/2024 11:10 PM EST 06/17/2024 11:10 PM EST Bobby Loja MD POINT OF CARE TEST O NIKA Performing Organization Address [facility] Co de Phone Number [facility] [place] [address] * POC, GLUCOSE (06/17/2024 7:54 PM EST) Glucometer, POC 126 65 - 199 mg/dL 06/17/2024 7:54 PM EST [facility] Comment:Supplemental ranges: <140 mg/dL before meals <180 mg/dL all other times of the day. Blood CAPILLARY BLOOD / Unknown 06/17/2024 7:54 PM EST 06/17/2024 7:54 PM EST Bobby Loja MD POINT OF CARE TEST O RDBECKIE Performing Organization Address [facility] de Phone Number [facility] [place] [address] * POC, GLUCOSE (06/17/2024 4:07 PM EST) Glucometer, POC 141 65 - 199 mg/dL 06/17/2024 4:12 PM EST [facility] Comment:Supplemental ranges: <140 mg/dL before meals <180 mg/dL all other times of the day. Blood CAPILLARY BLOOD / Unknown 06/17/2024 4:07 PM EST 06/17/2024 4:12 PM EST Bobby Loja MD POINT OF CARE TEST O NIKA Performing Organization Address [facility] de Phone Number [facility] [place] [address] * XR Chest PA & Lateral (Generic) (06/17/2024 1:46 PM EST) WORKSTATION ID [id number] DH RAD Anatomical Region Laterality Modality Chest [...] who have questions please contact the health hearing healthcare practitioner that requested your imaging first. ? Electronically signed by: Josselyn Spence MD, [facility] ([phone]), at 06/17/2024 4:49 PM Narrative 06/17/2024 4:49 [...] patients who have questions please contactthe health hearing healthcare practitioner that requested your imaging first. Electronically signed by: Josselyn Spence MD, [facility]([phone]), at 06/17/2024 4:49 PM [facility] * (ABNORMAL) POC, GLUCOSE [...] CARE TEST O NIKA Performing Organization Address City/[facility]/ZIP Co de Phone Number [facility] [place] [address] * POC, GLUCOSE (06/17/2024 7:49 AM EST) Glucometer, POC 141 65 - 199 mg/dL 06/17/2024 7:55 AM EST [facility] Comment:Supplemental ranges: <140 mg/dL before meals <180 mg/dL all other times of the day. Blood CAPILLARY BLOOD / Unknown 06/17/2024 7:49 AM EST 06/17/2024 7:55 AM EST Bobby Loja MD POINT OF CARE TEST O NIKA Performing Organization Address City/[facility]/ZIP Co de Phone Number [facility] [place] [address] * POC, GLUCOSE (06/17/2024 4:16 AM EST) Glucometer, POC 139 65 - 199 mg/dL 06/17/2024 4:16 AM EST [facility] Comment:Supplemental ranges: <140 mg/dL before meals <180 mg/dL all other times of the day. Blood CAPILLARY BLOOD / Unknown 06/17/2024 4:16 AM EST 06/17/2024 4:17 AM EST Bobby Loja MD POINT OF CARE TEST Abimael MAHER [facility] [place] [address] * Lactate, Whole Blood (06/17/2024 2:39 AM EST) [facility] Lactate, Whole Blood 1.3 0.5 - 2.2 mmol/L 06/17/2024 2:46 AM EST [facility] Blood VENOUS BLOOD SPECIMEN / Unknown Venipuncture / Unknown 06/17/2024 2:39 AM EST 06/17/2024 2:43 AM EST Bobby Loja MD CHEMISTRY ORDERABLES [facility] [place] [address] * (ABNORMAL) Hemogram (06/17/2024 2:39 AM EST) [facility] White Blood Cell 13.53(H) 4.00 - 9.50 x10(3)/mc L 06/17/2024 2:53 AM [facility] Red Blood Cell 3.55(L) 4.58 - 5.54 x10(6)/mc L 06/17/2024 2:53 AM [facility] Hemoglobin 10.8(L) 13.7 - 16.5 g/dL 06/17/2024 2:53 AM [facility] Hematocrit 33.0(L) 40.5 - 48.5 % 06/17/2024 2:53 AM [facility] Mean Cell Volume 93.0 82.9 - 93.1 fL 06/17/2024 2:53 AM [facility] Mean Cell Hemoglobin 30.4 [...] MD HEMATOLOGY ORDERABLE S Performing Organization Address City/State/[facility] Co de Phone Number [facility] [place] [address] * (ABNORMAL) Basic Metabolic Panel (06/17/2024 2:39 AM EST) Glucose 149 65 - 199 mg/dL 06/17/2024 3:14 AM [facility] Comment:Glucose Concentratio n >=200 mg/dL plus symptoms is consistent with Diabetes Mellitus. Blood Urea Nitrogen 42(H) 10 - 20 mg/dL 06/17/2024 3:14 AM [facility] Creatinine 1.52(H) 0.80 - 1.50 mg/dL 06/17/2024 3:14 AM [facility] Sodium 133(L) 135 - 145 mMol/L 06/17/2024 3:14 AM [facility] Potassium 4.5 3.5 - 5.0 mMol/L 06/17/2024 3:14 AM [facility] Chloride 101 98 - 107 mMol/L 06/17/2024 3:14 AM [facility] Carbon Dioxide 23 22 - 31 mMol/L 06/17/2024 3:14 AM EST [facility] Anion Gap 9 5 - 15 mMol/L 06/17/2024 3:14 AM EST [facility] Calcium 8.8 8.5 - 10.5 mg/dL 06/17/2024 3:14 AM EST [facility] Est Glomerular Filtration Rate - Male 50 mL/min/1. 73 m?? 06/17/2024 3:14 AM EST [facility] Comment: [...] Loja MD CHEMISTRY ORDERABLES Performing Organization Address City/State/[facility] Co de Phone Number [facility] [place] [address] * (ABNORMAL) POC, GLUCOSE (06/17/2024 12:13 AM EST) [facility] Signature Glucometer, POC 211(H) 65 - 199 mg/dL 06/17/2024 12:13 AM EST [facility] Comment:Supplemental ranges: <140 mg/dL before meals <180 mg/dL all other times of the day. Blood CAPILLARY BLOOD / Unknown 06/17/2024 12:13 AM EST 06/17/2024 12:14 AM EST Bobby Loja MD POINT OF CARE TEST O RDERABLES Performing Organization Address City/[facility] Co de Phone Number [facility] [place] [address] * (ABNORMAL) POC, GLUCOSE (06/16/2024 7:22 PM EST) Glucometer, POC 229(H) 65 - 199 mg/dL 06/16/2024 7:22 PM EST [facility] Comment:Supplemental ranges: <140 mg/dL before meals <180 mg/dL all other times of the day. Blood CAPILLARY BLOOD / Unknown 06/16/2024 7:22 PM EST 06/16/2024 7:22 PM EST Bobby Loja MD POINT OF CARE TEST O RDERAPIETER Performing Organization Address [facility] Co de Phone Number [facility] [place] [address] * (ABNORMAL) POC, GLUCOSE (06/16/2024 6:14 PM EST) Glucometer, POC 220(H) 65 - 199 mg/dL 06/16/2024 6:14 PM EST [facility] Comment:Supplemental ranges: <140 mg/dL before meals <180 mg/dL all other times of the day. Blood CAPILLARY BLOOD / Unknown 06/16/2024 6:14 PM EST 06/16/2024 6:14 PM EST Bobby Loaj MD POINT OF CARE TEST O RDERAPIETER Performing Organization Address City/[facility] Co de Phone Number [facility] [place] [address] * Lactate, Whole Blood (06/16/2024 6:14 PM EST) Lactate, Whole Blood 1.8 0.5 - 2.2 mmol/L 06/16/2024 6:27 PM EST [facility] Blood VENOUS BLOOD SPECIMEN / Unknown Venipuncture / Unknown 06/16/2024 6:14 PM EST 06/16/2024 6:25 PM EST Bobby Loja MD CHEMISTRY ORDERABLES Performing Organization Address [facility]/ZIP Co de Phone Number [facility] [place] [address] * (ABNORMAL) POC, GLUCOSE (06/16/2024 4:14 PM EST) Glucometer, POC 240(H) 65 - 199 mg/dL 06/16/2024 4:14 PM EST [facility] Comment:Supplemental ranges: <140 mg/dL before meals <180 mg/dL all other times of the day. Blood CAPILLARY BLOOD / Unknown 06/16/2024 4:14 PM EST 06/16/2024 4:14 PM EST Bobby Loja MD POINT OF CARE TEST O RDERABLES Performing Organization Address [facility] Co de Phone Number [facility] [place] [address] * POC, GLUCOSE (06/16/2024 11:49 AM EST) Glucometer, POC 199 65 - 199 mg/dL 06/16/2024 11:49 AM EST [facility] Comment:Supplemental ranges: <140 mg/dL before meals <180 mg/dL all other times of the day. Blood CAPILLARY BLOOD / Unknown 06/16/2024 11:49 AM EST 06/16/2024 11:49 AM EST Bobby Loja MD POINT OF CARE TEST O RDERAPIETER Performing Organization Address City/[facility]/ZIP Co de Phone Number [facility] [place] [address] * (ABNORMAL) Hemogram (06/16/2024 11:44 AM EST) White Blood Cell 17.91(H) 4.00 - 9.50 x10(3)/mc L 06/16/2024 12:25 PM EST [facility] Red Blood Cell 3.47(L) 4.58 [...] HEMATOLOGY ORDERABLE S [facility] [place] [address] * Lactate, Whole Blood (06/16/2024 9:02 AM EST) Lactate, Whole Blood 1.8 0.5 - 2.2 mmol/L 06/16/2024 9:19 AM EST [facility] Blood VENOUS BLOOD SPECIMEN / Unknown Venipuncture / Unknown 06/16/2024 9:02 AM EST 06/16/2024 9:17 AM EST Bobby Loja MD CHEMISTRY ORDERABLES Performing Organization Address [facility] Co de Phone Number [facility] [place] [address] * POC, GLUCOSE (06/16/2024 7:44 AM EST) [...] CARE TEST O RDERABLES Performing Organization Address [facility] Co de Phone Number [facility] [place] [address] * POC, GLUCOSE (06/16/2024 4:01 AM EST) [...] TEST O RDERABLES [facility] [place] [address] * (ABNORMAL) Basic Metabolic Panel (06/16/2024 2:23 [...] m?? 06/16/2024 3:13 AM [facility] Loja MD CHEMISTRY ORDERABLES Performing Organization Address City/[facility]/ZIP Co de Phone Number [facility] [place] [address] * POC, GLUCOSE (06/16/2024 2:21 AM EST) Glucometer, POC 176 65 - 199 mg/dL 06/16/2024 2:31 AM EST [facility] Comment:Supplemental ranges: <140 mg/dL before meals <180 mg/dL all other times of the day. Blood CAPILLARY BLOOD / Unknown 06/16/2024 2:21 AM EST 06/16/2024 2:31 AM EST Bobby Loja MD POINT OF CARE TEST O RDERABLES Performing Organization Address [facility] Co de Phone Number [facility] [place] [address] * (ABNORMAL) POC, GLUCOSE (06/16/2024 12:09 AM [...] CARE TEST O RDBECKIE Performing Organization Address City/[facility]/ZIP Co de Phone Number [facility] [place] [address] * (ABNORMAL) POC, GLUCOSE (06/15/2024 10:07 PM EST) Glucometer, POC 320(H) 65 - 199 mg/dL 06/15/2024 10:07 PM EST [facility] Comment:Supplemental ranges: <140 mg/dL before meals <180 mg/dL all other times of the day. Blood CAPILLARY BLOOD / Unknown 06/15/2024 10:07 PM EST 06/15/2024 10:07 PM EST Bobby Loja MD POINT OF CARE TEST O NIKA Performing Organization Address [facility] Co de Phone Number [facility] [place] [address] * (ABNORMAL) POC, GLUCOSE (06/15/2024 7:56 PM EST) Glucometer, POC 304(H) 65 - 199 mg/dL 06/15/2024 7:56 PM EST [facility] Comment:Supplemental ranges: <140 mg/dL before meals <180 mg/dL all other times of the day. Blood CAPILLARY BLOOD / Unknown 06/15/2024 7:56 PM EST 06/15/2024 7:56 PM EST Bobby Loja MD POINT OF CARE TEST O NIKA Performing Organization Address [facility] de Phone Number [facility] [place] [address] * (ABNORMAL) POC, GLUCOSE (06/15/2024 7:52 PM EST) Glucometer, POC 288(H) 65 - 199 mg/dL 06/15/2024 7:52 PM EST [facility] Comment:Supplemental ranges: <140 mg/dL before meals <180 mg/dL all other times of the day. Blood CAPILLARY BLOOD / Unknown 06/15/2024 7:52 PM EST 06/15/2024 7:52 PM EST Bobby Loja MD POINT OF CARE TEST Abimael MAHER Performing Organization Address City/[facility] Co de Phone Number [facility] [place] [address] * POC, GLUCOSE (06/15/2024 4:21 PM EST) Glucometer, POC 192 65 - 199 mg/dL 06/15/2024 4:21 PM EST [facility] Comment:Supplemental ranges: <140 mg/dL before meals <180 mg/dL all other times of the day. Blood CAPILLARY BLOOD / Unknown 06/15/2024 4:21 PM EST 06/15/2024 4:21 PM EST Bobby Loja MD POINT OF CARE TEST O NIKA Performing Organization Address City/[facility]/ZIP Co de Phone Number [facility] [place] [address] * POC, GLUCOSE (06/15/2024 3:27 PM EST) Glucometer, POC 155 65 - 199 mg/dL 06/15/2024 3:27 PM EST [facility] Comment:Supplemental ranges: <140 mg/dL before meals <180 mg/dL all other times of the day. Blood CAPILLARY BLOOD / Unknown 06/15/2024 3:27 PM EST 06/15/2024 3:27 PM EST Bobby Loja MD POINT OF CARE TEST O NIKA Performing Organization Address City/[facility]/ZIP Co de Phone Number [facility] [place] [address] * POC, GLUCOSE (06/15/2024 2:23 PM EST) Glucometer, POC 160 65 - 199 mg/dL 06/15/2024 2:23 PM EST [facility] Comment:Supplemental ranges: <140 mg/dL before meals <180 mg/dL all other times of the day. Blood CAPILLARY BLOOD / Unknown 06/15/2024 2:23 PM EST 06/15/2024 2:23 PM EST Bobby Loja MD POINT OF CARE TEST O RDERAPIETER Performing Organization Address [facility] Co de Phone Number [facility] [place] [address] * POC, GLUCOSE (06/15/2024 1:26 PM EST) Glucometer, POC 167 65 - 199 mg/dL 06/15/2024 1:26 PM EST [facility] Comment:Supplemental ranges: <140 mg/dL before meals <180 mg/dL all other times of the day. Blood CAPILLARY BLOOD / Unknown 06/15/2024 1:26 PM EST 06/15/2024 1:26 PM EST Bobby Loja MD POINT OF CARE TEST O NIKA Performing Organization Address [facility] Co de Phone Number [facility] [place] [address] * (ABNORMAL) POC, GLUCOSE (06/15/2024 12:55 PM EST) Glucometer, POC 210(H) 65 - 199 mg/dL 06/15/2024 12:55 PM EST [facility] Comment:Supplemental ranges: <140 mg/dL before meals <180 mg/dL all other times of the day. Blood CAPILLARY BLOOD / Unknown 06/15/2024 12:55 PM EST 06/15/2024 12:55 PM EST Bobby Loja MD POINT OF CARE TEST O NIKA Performing Organization Address [facility] Co de Phone Number [facility] [place] [address] * (ABNORMAL) POC, GLUCOSE (06/15/2024 11:29 AM EST) Glucometer, POC 220(H) 65 - 199 mg/dL 06/15/2024 11:29 AM EST [facility] Comment:Supplemental ranges: <140 mg/dL before meals <180 mg/dL all other times of the day. Blood CAPILLARY BLOOD / Unknown 06/15/2024 11:29 AM EST 06/15/2024 11:29 AM EST Bobby Loja MD POINT OF CARE TEST O RDERABLES [facility] [place] [address] * (ABNORMAL) Basic Metabolic Panel (06/15/2024 11:23 AM EST) Glucose 215(H) 65 - 199 mg/dL 06/15/2024 12:08 PM EST [facility] Comment:Glucose [...] PM [facility] Est Glomerular Filtration Rate - Male 49 mL/min/1. 73 m?? 06/15/2024 12:08 PM [facility] Loja MD CHEMISTRY ORDERABLES Performing Organization Address [facility] Co de Phone Number [facility] [place] [address] * POC, GLUCOSE (06/15/2024 10:29 AM EST) [...] CARE TEST O RDERABLES Performing Organization Address [facility] de Phone Number [facility] [place] [address] * POC, GLUCOSE (06/15/2024 9:45 AM EST) [...] CARE TEST O RDERABLES Performing Organization Address City/[facility] Co de Phone Number [facility] [place] [address] * (ABNORMAL) Cooximetry, POC (06/15/2024 9:31 AM [...] CARE TEST O RDERABLES Performing Organization Address [facility]/State/ZIP Co de Phone Number [facility] [place] [address] * Cooximetry, POC (06/15/2024 9:22 AM EST) [...] TEST O RDERABLES [facility] [place] [address] * (ABNORMAL) Blood Gas, Arterial POC (06/15/2024 [...] CARE TEST Abimael MAHER Performing Organization Address City/[facility]/ZIP Co de Phone Number [facility] [place] [address] * (ABNORMAL) POC, GLUCOSE (06/15/2024 8:37 AM EST) [facility] Signature Glucometer, POC 204(H) 65 - 199 mg/dL 06/15/2024 8:37 AM EST [facility] Comment:Supplemental ranges: <140 mg/dL before meals <180 mg/dL all other times of the day. Blood CAPILLARY BLOOD / Unknown 06/15/2024 8:37 AM EST 06/15/2024 8:37 AM EST Bobby Loja MD POINT OF CARE TEST O NIKA [facility] [place] [address] * POC, GLUCOSE (06/15/2024 7:37 AM EST) Glucometer, POC 199 65 - 199 mg/dL 06/15/2024 7:37 AM EST [facility] Comment:Supplemental ranges: <140 mg/dL before meals <180 mg/dL all other times of the day. Blood CAPILLARY BLOOD / Unknown 06/15/2024 7:37 AM EST 06/15/2024 7:38 AM EST Bobby Loja MD POINT OF CARE TEST O NIKA Performing Organization Address [facility] Co de Phone Number [facility] [place] [address] * (ABNORMAL) POC, GLUCOSE (06/15/2024 7:01 AM EST) Glucometer, POC 203(H) 65 - 199 mg/dL 06/15/2024 7:01 AM EST [facility] Comment:Supplemental ranges: <140 mg/dL before meals <180 mg/dL all other times of the day. Blood CAPILLARY BLOOD / Unknown 06/15/2024 7:01 AM EST 06/15/2024 7:01 AM EST Bobby Loja MD POINT OF CARE TEST Abimael MAHER Performing Organization Address City/[facility]/ZIP Co de Phone Number [facility] [place] [address] * XR Chest One View (06/15/2024 6:31 AM EST) WORKSTATION ID [id number] RAD Anatomical Region Laterality Modality Chest N/A [...] who have questions please contact the health hearing healthcare practitioner that requested your imaging first. ? Electronically signed by: Stuart Aponte MD, [facility] ??([phone]), at 06/15/2024 10:38 AM Narrative 06/15/2024 10:38 [...] patients who have questions please contactthe health hearing healthcare practitioner that requested your imaging first. Electronically signed by: Stuart Aponte MD, [facility]([phone]), at 06/15/2024 10:38 AM Bobby Loja MD [...] CARE TEST O NIKA Performing Organization Address City/[facility]/ZIP Co de Phone Number [facility] [place] [address] * POC, GLUCOSE (06/15/2024 5:06 AM EST) Glucometer, POC 160 65 - 199 mg/dL 06/15/2024 5:06 AM EST [facility] Comment:Supplemental ranges: <140 mg/dL before meals <180 mg/dL all other times of the day. Blood CAPILLARY BLOOD / Unknown 06/15/2024 5:06 AM EST 06/15/2024 5:06 AM EST Narrative Authorizing Provider Result Saranya Loja MD POINT OF CARE TEST O NIAK [facility] [place] [address] * POC, GLUCOSE (06/15/2024 4:05 AM EST) Glucometer, POC 160 65 - 199 mg/dL 06/15/2024 4:06 AM EST [facility] Comment:Supplemental ranges: <140 mg/dL before meals <180 mg/dL all other times of the day. Blood CAPILLARY BLOOD / Unknown 06/15/2024 4:05 AM EST 06/15/2024 4:06 AM EST Bobby Loja MD POINT OF CARE TEST O NIKA Performing Organization Address [facility]/ZIP Co de Phone Number [facility] [place] [address] * POC, GLUCOSE (06/15/2024 3:07 AM EST) Glucometer, POC 151 65 - 199 mg/dL 06/15/2024 3:07 AM EST [facility] Comment:Supplemental ranges: <140 mg/dL before meals <180 mg/dL all other times of the day. Blood CAPILLARY BLOOD / Unknown 06/15/2024 3:07 AM EST 06/15/2024 3:07 AM EST Bobby Loja MD POINT OF CARE TEST O NIKA Performing Organization Address [facility] Co de Phone Number [facility] [place] [address] * (ABNORMAL) Basic Metabolic Panel (06/15/2024 1:48 AM EST) Glucose 140 65 - 199 mg/dL 06/15/2024 2:38 AM [facility] Comment:Glucose Concentratio n >=200 mg/dL plus symptoms is consistent with Diabetes Mellitus. Blood Urea Nitrogen 21(H) 10 - 20 mg/dL 06/15/2024 2:38 AM [facility] Creatinine 1.27 0.80 - 1.50 mg/dL 06/15/2024 2:38 AM [facility] Sodium 140 135 - [...] 5 - 15 mMol/L 06/15/2024 2:38 AM EST [facility] Calcium 8.3(L) 8.5 - 10.5 mg/dL 06/15/2024 2:38 AM EST [facility] Est Glomerular Filtration Rate - Male 62 mL/min/1. 73 m?? 06/15/2024 2:38 AM EST [facility] Comment: [...] MD CHEMISTRY ORDERABLES [facility] [place] [address] * (ABNORMAL) CBC (with Diff) (06/15/2024 1:48 AM EST) White Blood Cell 11.71(H) 4.00 - 9.50 x10(3)/mc L 06/15/2024 2:13 AM EST [facility] Red Blood Cell 4.14(L) 4.58 - 5.54 x10(6)/mc L 06/15/2024 2:13 AM EST [facility] Hemoglobin 12.5(L) 13.7 - 16.5 g/dL 06/15/2024 2:13 AM EST [facility] Hematocrit 38.4(L) 40.5 - 48.5 [...] [facility] Lymph % 8.0 % 06/15/2024 2:13 AM [facility] Lymph Absolute 0.94 0.90 - 3.20 x10(3)/mc L 06/15/2024 2:13 AM [facility] Monocyte % 11.4 % 06/15/2024 2:13 AM [facility] Monocyte Absolute 1.33(H) 0.30 [...] Gran % 0.5 % 2:13 AM EST [facility] Immature Gran Absolute 0.06(H) 0.00 - 0.04 x10(3)/mc L 06/15/2024 2:13 AM EST [facility] Blood VENOUS BLOOD SPECIMEN / Unknown Venipuncture / Unknown 06/15/2024 1:48 AM EST 06/15/2024 1:52 AM EST Bobby Loja MD HEMATOLOGY ORDERABLE S [facility] [place] [address] * (ABNORMAL) Troponin - Single (06/15/2024 1:48 [...] troponin value can be found in the [facility] Test Catalog Troponin - https://[email or web address].org/catalogs/565/[email or web address] Reference: Fourth [place] Definition of Myocardial Infarction. Journal of the [place] [employer] 2018;72:5776-4096 Blood VENOUS BLOOD SPECIMEN / Unknown Venipuncture / Unknown 06/15/2024 1:48 AM EST 06/15/2024 1:52 AM EST Bobby Loja MD CHEMISTRY ORDERABLES [facility] [place] [address] * (ABNORMAL) Blood Gas, Arterial POC (06/15/2024 1:46 AM EST) pH, Arterial 7.33(L) 7.35 - 7.45 06/15/2024 1:47 AM EST [facility] PCO2, Arterial 40 35 - 45 mmHg 06/15/2024 1:47 AM EST [facility] PO2, Arterial 131(H) 85 - 104 mmHg 06/15/2024 1:47 AM [facility] Bicarbonate, Arterial 20.7 20.0 [...] mg/dL 06/15/2024 1:47 AM [facility] Comment:Glucose Concentratio n >=200 mg/dL plus symptoms is consistent with Diabetes Mellitus. Blood ARTERIAL BLOOD / Unknown 06/15/2024 1:46 AM EST 06/15/2024 1:47 AM EST Bobby Loja MD POINT OF CARE TEST O RDERABLES [facility] [place] [address] * POC, GLUCOSE (06/15/2024 1:05 AM EST) Glucometer, POC 116 65 - 199 mg/dL 06/15/2024 1:05 AM EST [facility] Comment:Supplemental ranges: <140 mg/dL before meals <180 mg/dL all other times of the day. Blood CAPILLARY BLOOD / Unknown 06/15/2024 1:05 AM EST 06/15/2024 1:05 AM EST Bobby Loja MD POINT OF CARE TEST O RDERABLES [facility] [place] [address] * POC, GLUCOSE (06/15/2024 12:16 AM EST) Glucometer, POC 135 65 - 199 mg/dL 06/15/2024 12:16 AM EST [facility] Comment:Supplemental ranges: <140 mg/dL before meals <180 mg/dL all other times of the day. Blood CAPILLARY BLOOD / Unknown 06/15/2024 12:16 AM EST 06/15/2024 12:16 AM EST Bobby Loja MD POINT OF CARE TEST O RDERABLES Performing Organization Address City/[facility]/ZIP Co de Phone Number [facility] [place] [address] * Potassium (06/14/2024 11:28 PM EST) Potassium 4.1 3.5 - 5.0 mMol/L 06/14/2024 11:54 PM EST [facility] Blood VENOUS BLOOD SPECIMEN / Unknown Venipuncture / Unknown 06/14/2024 11:28 PM EST 06/14/2024 11:34 PM EST Bobby Loja MD CHEMISTRY ORDERABLES [facility] [place] [address] * POC, GLUCOSE (06/14/2024 10:58 PM EST) Glucometer, POC 126 65 - 199 mg/dL 06/14/2024 10:59 PM EST [facility] Comment:Supplemental ranges: <140 mg/dL before meals <180 mg/dL all other times of the day. Blood CAPILLARY BLOOD / Unknown 06/14/2024 10:58 PM EST 06/14/2024 10:59 PM EST Bobby Loja MD POINT OF CARE TEST O RDBECKIE Performing Organization Address [facility]/ZIP Co de Phone Number [facility] [place] [address] * POC, GLUCOSE (06/14/2024 9:55 PM EST) Glucometer, POC 152 65 - 199 mg/dL 06/14/2024 9:56 PM EST [facility] Comment:Supplemental ranges: <140 mg/dL before meals <180 mg/dL all other times of the day. Blood CAPILLARY BLOOD / Unknown 06/14/2024 9:55 PM EST 06/14/2024 9:56 PM EST Bobby Loja MD POINT OF CARE TEST O NIKA Performing Organization Address [facility]/ZIP Co de Phone Number [facility] [place] [address] * POC, GLUCOSE (06/14/2024 8:54 PM EST) Glucometer, POC 151 65 - 199 mg/dL 06/14/2024 8:54 PM EST [facility] Comment:Supplemental ranges: <140 mg/dL before meals <180 mg/dL all other times of the day. Blood CAPILLARY BLOOD / Unknown 06/14/2024 8:54 PM EST 06/14/2024 8:54 PM EST Bobby Loja MD POINT OF CARE TEST O RDERABLES Performing Organization Address City/[facility]/ZIP Co de Phone Number [facility] [place] [address] * POC, GLUCOSE (06/14/2024 7:51 PM EST) Glucometer, POC 169 65 - 199 mg/dL 06/14/2024 7:52 PM EST [facility] Comment:Supplemental ranges: <140 mg/dL before meals <180 mg/dL all other times of the day. Blood CAPILLARY BLOOD / Unknown 06/14/2024 7:51 PM EST 06/14/2024 7:52 PM EST Bobby Loja MD POINT OF CARE TEST O NIKA Performing Organization Address [facility] Co de Phone Number [facility] [place] [address] * POC, GLUCOSE (06/14/2024 6:49 PM EST) Glucometer, POC 194 65 - 199 mg/dL 06/14/2024 6:50 PM EST [facility] Comment:Supplemental ranges: <140 mg/dL before meals <180 mg/dL all other times of the day. Blood CAPILLARY BLOOD / Unknown 06/14/2024 6:49 PM EST 06/14/2024 6:50 PM EST Bobby Loja MD POINT OF CARE TEST O RDBECKIE Performing Organization Address City/[facility]/ZIP Co de Phone Number [facility] [place] [address] * (ABNORMAL) Hemoglobin (06/14/2024 6:19 PM EST) Hemoglobin 13.1(L) 13.7 - 16.5 g/dL 06/14/2024 7:08 PM EST [facility] Blood VENOUS BLOOD SPECIMEN / Unknown Venipuncture / Unknown 06/14/2024 6:19 PM EST 06/14/2024 6:28 PM EST Bobby Loja MD HEMATOLOGY ORDERABLE S Performing Organization Address [facility]/ZIP Co de Phone Number [facility] [place] [address] * Potassium (06/14/2024 6:19 PM EST) Potassium 3.9 3.5 - 5.0 mMol/L 06/14/2024 6:52 PM EST [facility] Blood VENOUS BLOOD SPECIMEN / Unknown Venipuncture / Unknown 06/14/2024 6:19 PM EST 06/14/2024 6:28 PM EST Bobby Loja MD CHEMISTRY ORDERABLES Performing Organization Address [facility] Co de Phone Number [facility] [place] [address] * (ABNORMAL) POC, GLUCOSE (06/14/2024 6:03 PM EST) [facility] Glucometer, POC 201(H) 65 - 199 mg/dL 06/14/2024 6:03 PM EST [facility] Comment:Supplemental ranges: <140 mg/dL before meals <180 mg/dL all other times of the day. Blood CAPILLARY BLOOD / Unknown 06/14/2024 6:03 PM EST 06/14/2024 6:03 PM EST Bobby Loja MD POINT OF CARE TEST O RDERABLES Performing Organization Address [facility]/ZIP Co de Phone Number [facility] [place] [address] * (ABNORMAL) Blood Gas, Arterial POC (06/14/2024 4:51 PM EST) pH, Arterial 7.32(L) 7.35 - 7.45 06/14/2024 4:52 PM EST [facility] PCO2, Arterial 46(H) 35 - 45 mmHg 06/14/2024 4:52 PM EST [facility] PO2, Arterial 85 85 - [...] [facility] PF Ratio 213 Ratio 06/14/2024 4:52 PM [facility] Comment:PF ratio calculated using the non-temperature corrected pO2 result. IONIZED CALCIUM, ARTERIAL 1.16 1.15 - 1.33 mmol/L 06/14/2024 4:52 PM [facility] Glucose, Arterial 192 65 - 199 mg/dL 06/14/2024 4:52 PM EST [facility] Comment:Glucose Concentratio n >=200 mg/dL plus symptoms is consistent with Diabetes Mellitus. Blood ARTERIAL BLOOD / Unknown 06/14/2024 4:51 PM EST 06/14/2024 4:52 PM EST Bobby Loja MD POINT OF CARE TEST O NIKA Performing Organization Address [facility] Co de Phone Number [facility] [place] [address] * POC, GLUCOSE (06/14/2024 4:00 PM EST) Glucometer, POC 184 65 - 199 mg/dL 06/14/2024 4:01 PM EST [facility] Comment:Supplemental ranges: <140 mg/dL before meals <180 mg/dL all other times of the day. Blood CAPILLARY BLOOD / Unknown 06/14/2024 4:00 PM EST 06/14/2024 4:01 PM EST Bobby Loja MD POINT OF CARE TEST O NIKA Performing Organization Address [facility] de Phone Number [facility] [place] [address] * XR Chest One View (06/14/2024 3:05 PM EST) WORKSTATION ID [id number] RAD Anatomical Region Laterality Modality Chest N/A [...] who have questions please contact the health hearing healthcare practitioner that requested your imaging first. ? Electronically signed by: Stuart Aponte MD, [facility] ??([phone]), at 06/14/2024 4:07 PM Narrative 06/14/2024 4:07 [...] patients who have questions please contactthe health hearing healthcare practitioner that requested your imaging first. Electronically signed by: Stuart Aponte MD, [facility]([phone]), at 06/14/2024 4:07 PM Bobby Loja MD [...] TEST O RDERABLES [facility] [place] [address] * EKG 12 Lead (06/14/2024 2:46 PM EST) Ventricular rate 80 BPM MUSE SYSTEM Atrial Rate 80 BPM MUSE SYSTEM P-R Interval 120 ms MUSE SYSTEM QRS Duration 108 ms MUSE SYSTEM Q-T Interval 454 ms MUSE SYSTEM QTC Calculated (Bezet) 523 ms MUSE SYSTEM Calculated P [place] 70 degrees MUSE SYSTEM Calculated R [place] 56 degrees MUSE SYSTEM Calculated T [place] 50 degrees MUSE SYSTEM INTERPRETATION AV dual-paced rhythm Abnormal ECG When compared with ECG of 31-OCT-2024 01:45, Vent. rate has increased BY ??17 BPM Confirmed by MD Marisol, Shaheen ([id number]) on 06/15/2024 1:57:23 PM MUSE SYSTEM 06/14/2024 2:46 PM EST 06/15/2024 1:57 PM EST Bobby Loja MD ECG ORDERABLES MUSE SYSTEM * Prepare RBC (06/14/2024 2:27 PM EST) Status Information Returned [facility] Product Identification RBC [facility] Unit Number [id number] [facility] Product Code [id number] [facility] Unit Blood Type OPOS [facility] Specimen Expiration Date [facility] Volulme 350 [facility] Issue Date / Time [facility] Status Information Returned [facility] Product Identification RBC [facility] Unit Number [id number] [facility] Product [facility] [id number] [facility] Unit Blood Type OPOS [facility] Specimen Expiration Date [facility] Volulme [address] [facility] Issue Date / Time [facility] Blood 06/14/2024 6:2 5 AM EST Haja Byrnes MD BLOOD BANK PRODUCT O RDERABLES [facility] [place] [address] * (ABNORMAL) Cooximetry, POC (06/14/2024 1:52 PM EST) pO2, Coox 58 mmHg 06/14/2024 1:55 PM EST [facility] Hemoglobin, Coox 12.6(L) 13.7 - 16.5 g/dL 06/14/2024 1:55 PM EST [facility] Oxyhemoglobin, Coox 85.5 % 06/14/2024 1:55 PM [facility] Carboxyhemoglo bin, Coox 0.3 % 06/14/2024 1:55 PM [facility] Comment: Nonsmokers: 0.5-1.5% COHB ?? Smokers: Variable ??but usually less than 10% ?? Toxic: 20-30% COHB ?? Lethal: Greater than 60% COHB Methemoglobin, Coox 0.6 <=1.5 % 06/14/2024 1:55 PM [facility] Blood (Mixed Venous) 06/14/2024 1:52 PM EST 06/14/2024 1:55 PM EST Haja Byrnes MD POINT OF CARE TEST O RDERABLES Performing Organization Address City/State/[facility] Co de Phone Number [facility] [place] [address] * (ABNORMAL) Blood Gas, Arterial POC (06/14/2024 12:47 PM EST) pH, Arterial 7.33(L) 7.35 - 7.45 06/14/2024 12:48 PM [facility] PCO2, Arterial 46(H) 35 - 45 mmHg 06/14/2024 12:48 PM [facility] PO2, Arterial 358(H) 85 - 104 mmHg 06/14/2024 12:48 PM [facility] Bicarbonate, Arterial 23.8 20.0 [...] TEST O RDERABLES [facility] [place] [address] * (ABNORMAL) Cooximetry, POC (06/14/2024 12:42 PM [...] TEST O RDERABLES [facility] [place] [address] * (ABNORMAL) Platelet count (06/14/2024 12:30 PM EST) Platelet 73(L) 145 - 357 x10(3)/mcL 06/14/2024 12:54 PM EST [facility] Blood ARTERIAL BLOOD / Unknown 06/14/2024 12:30 PM EST Comment:Pre-op diagnosis: CAD Bobby Loja MD HEMATOLOGY ORDERABLE S [facility] [place] [address] * (ABNORMAL) Hemoglobin and Hematocrit, blood (06/14/2024 [...] MD HEMATOLOGY ORDERABLE S Performing Organization Address [facility] Co de Phone Number [facility] [place] [address] * APTT (06/14/2024 12:30 PM EST) Partial [...] MD HEMATOLOGY ORDERABLE S Performing Organization Address [facility] Co de Phone Number [facility] [place] [address] * (ABNORMAL) Prothrombin Time (06/14/2024 12:30 PM [...] MD HEMATOLOGY ORDERABLE S Performing Organization Address City/[facility]/ZIP Co de Phone Number [facility] [place] [address] * Fibrinogen (06/14/2024 12:30 PM EST) Fibrinogen 211 200 - 393 mg/dL 06/14/2024 12:57 PM EST [facility] Comment: A fibrinogen level >100 mg/dL is adequate for hemostasis in most patients without underlying bleeding disorders. Blood ARTERIAL BLOOD / Unknown 06/14/2024 12:30 PM EST 06/14/2024 12:42 PM EST Comment:Pre-op diagnosis: CAD Bobby Loja MD HEMATOLOGY ORDERABLE S Performing Organization Address City/[facility] Co de Phone Number [facility] [place] [address] * (ABNORMAL) Blood Gas, Arterial POC (06/14/2024 12:15 PM EST) pH, Arterial 7.38 7.35 - 7.45 06/14/2024 12:16 PM EST [facility] PCO2, Arterial 40 35 - 45 mmHg 06/14/2024 12:16 PM EST [facility] Bicarbonate, Arterial 22.9 20.0 - 26.0 mmol/L 06/14/2024 12:16 PM EST [facility] Base Excess, Arterial -2.3 -3.0 - 3.0 mmol/L 06/14/2024 12:16 PM EST [facility] Hemoglobin, Arterial 11.4(L) 13.7 - 16.5 g/dL 06/14/2024 12:16 PM EST [facility] Oxyhemoglobin, Arterial 98.8(H) 94.0 - 97.0 % 06/14/2024 12:16 PM EST [facility] Carboxyhemoglobin , Arterial 0.3 % 06/14/2024 12:16 PM [facility] Comment: Nonsmokers: 0.5-1.5% COHB ?? Smokers: Variable ??but usually less than 10% ?? Toxic: 20-30% COHB ?? Lethal: Greater than 60% COHB Methemoglobin, Arterial 0.6 <=1.5 % 06/14/2024 12:16 PM EST [facility] Sodium, Arterial 134(L) 135 - [...] TEST O RDERABLES [facility] [place] [address] * (ABNORMAL) Blood Gas, Arterial POC (06/14/2024 [...] TEST O RDERABLES [facility] [place] [address] * (ABNORMAL) Blood Gas, Arterial POC (06/14/2024 [...] TEST O RDERABLES [facility] [place] [address] * (ABNORMAL) Scan, Peripheral Blood (06/14/2024 11:23 AM EST) RBC Morphology Abnormal 06/14/2024 11:59 AM [facility] Platelet Estimate Decreased(A) Normal 06/14/2024 11:59 AM [facility] Aretha cells 1-5 /HPF 06/14/2024 11:59 AM [facility] Blood ARTERIAL BLOOD / Unknown 06/14/2024 11:23 AM EST 06/14/2024 11:27 AM EST Bobby Loja MD HEMATOLOGY ORDERABLE S [facility] [place] [address] * (ABNORMAL) Platelet count (06/14/2024 11:23 AM EST) Platelet 86(L) 145 - 357 x10(3)/mcL 06/14/2024 11:59 AM EST [facility] Blood ARTERIAL BLOOD / Unknown 06/14/2024 11:23 AM EST Comment:Pre-op diagnosis: CAD Bobby Loja MD HEMATOLOGY ORDERABLE S Performing Organization Address [facility]/ZIP Co de Phone Number [facility] [place] [address] * (ABNORMAL) Hemoglobin and Hematocrit, blood (06/14/2024 11:23 AM EST) Pathologist [facility] Hemoglobin 9.8(L) 13.7 - 16.5 g/dL 06/14/2024 [...] HEMATOLOGY ORDERABLE S [facility] [place] [address] * (ABNORMAL) Blood Gas, Arterial POC (06/14/2024 [...] TEST O RDERABLES [facility] [place] [address] * (ABNORMAL) Blood Gas, Arterial POC (06/14/2024 [...] TEST O RDERABLES [facility] [place] [address] * (ABNORMAL) Blood Gas, Arterial POC (06/14/2024 [...] mg/dL 06/14/2024 10:26 AM [facility] Comment:Glucose Concentratio n >=200 mg/dL plus symptoms is consistent with Diabetes Mellitus. Blood ARTERIAL BLOOD / Unknown 06/14/2024 10:25 AM EST 06/14/2024 10:26 AM EST Athos J Rassias MD POINT OF CARE TEST O RDERABLES [facility] [place] [place] [address] * Surgical Pathology (06/14/2024 9:53 AM EST) Case Report Surgical Pathology Report ? Case: [id number] ? Authorizing Provider: ??Bobby Loja MD ? Collected: ? 06/14/2024 0953 ? Ordering Location: ? Main Operating Room Kristen ?? Received: ?06/14/2024 1413 ? [facility] ? Hospital ? Pathologist: ? [...] Inking: External surface inked black Sections/Process ing: Tile Decorator sections in 4 cassettes labeled A1-A4. cmk B. Heart, Atrial Appendage, Left, . B - Labeled/Fixative : Heart, atrial appendage, left, fresh. Quantity/Size: Single, 3.3 x 1.5 x 0.8 cm. Tissue Description: Portion of heart tissue consisting of rodriguez-white, semitranslucent, smooth endocardium with rodriguez-brown muscular myocardium and thin translucent epicardium with adherent adipose tissue. No areas of discoloration identified. Sections/Process ing: Tile Decorator sections in 1 cassette labeled B1. cmk 06/18/2024 10:18 AM [facility] Result Note Routine 06/18/2024 10:18 AM [facility] Tissue SOFT TISSUE MASS / Unknown 06/14/2024 9:53 AM EST 06/14/2024 2:13 PM EST Comment:Mediastinal mass Tissue specimen (specimen) LEFT ATRIAL APPENDAGE ABSENT / Unknown 06/14/2024 10:54 AM EST 06/14/2024 2:13 PM EST Comment:MARIALUISA Bobby Loja MD PATHOLOGY/CYTOLOGY O RDERABLES [facility] [place] [address] * Cooximetry, POC (06/14/2024 9:00 AM EST) [...] TEST O RDERABLES [facility] [place] [address] * (ABNORMAL) Blood Gas, Arterial POC (06/14/2024 [facility] Chloride, Arterial 102 98 - 107 mmol/L 06/14/2024 8:40 AM EST [facility] Lactate, Arterial 0.9 0.5 - 2.2 mmol/L 06/14/2024 8:40 AM EST [facility] IONIZED CALCIUM, ARTERIAL 1.17 1.15 - 1.33 mmol/L 06/14/2024 8:40 AM EST [facility] Glucose, Arterial 121 65 - 199 mg/dL 06/14/2024 8:40 AM EST [facility] Comment:Glucose Concentratio n >=200 mg/dL plus symptoms is consistent with Diabetes Mellitus. Blood ARTERIAL BLOOD / Unknown 06/14/2024 8:39 AM EST 06/14/2024 8:40 AM EST Haja Byrnes MD POINT OF CARE TEST O RDERABLES Performing Organization Address City/State/[facility] Co de Phone Number [facility] [place] [address] * Transesophageal Echo/OR (06/14/2024 7:20 AM EST) Anatomical Region Laterality Modality Cardiac Other 06/14/2024 7:20 AM EST Narrative 06/14/2024 4:36 PM EST Version: 2 Study ID: [id number] [address] [place] [address] ?OR Transesophageal Echo Report Name: GEORGE MEHTA [...] of this mass after consultation with other disc jockey experts and the decision was made by [...] MD - 06/14/2024 Version: 2 Study ID: [id number] [address] [place] [id number] ORTransesophageal Echo Report Name: GEORGE MEHTA Study [...] of this mass after consultation with other disc jockey experts and thedecision was made by surgeon [...] CARE TEST O RDERAPIETER Performing Organization Address City/[facility]/ZIP Co de Phone Number [facility] [place] [address] * POC, GLUCOSE (06/14/2024 4:30 AM EST) Glucometer, POC 85 65 - 199 mg/dL 06/14/2024 4:30 AM EST [facility] Comment:Supplemental ranges: <140 mg/dL before meals <180 mg/dL all other times of the day. Blood CAPILLARY BLOOD / Unknown 06/14/2024 4:30 AM EST 06/14/2024 4:30 AM EST Haja Byrnes MD POINT OF CARE TEST O RDERAPIETER Performing Organization Address City/[facility]/ZIP Co de Phone Number [facility] [place] [address] * (ABNORMAL) Heparin (unfractionated) Level (06/14/2024 12:12 AM EST) Pathologist [facility] UF Heparin 1.02(HHH) IU/mL 06/14/2024 12:46 AM [...] MD HEMATOLOGY ORDERABLE S Performing Organization Address City/State/[facility] Co de Phone Number [facility] [place] [address] * (ABNORMAL) CBC (with Diff) (06/14/2024 12:12 AM EST) Pathologist [facility] White Blood Cell 10.51(H) 4.00 - 9.50 x10(3)/mc L 06/14/2024 12:38 AM EST [facility] Red Blood Cell 4.99 4.58 - 5.54 x10(6)/mc L 06/14/2024 12:38 AM EST [facility] Hemoglobin 14.9 13.7 - 16.5 g/dL 06/14/2024 12:38 AM EST [facility] Hematocrit 45.9 40.5 - 48.5 [...] 0.90 x10(3)/mc L 06/14/2024 12:38 AM EST [facility] Eos % 3.9 % 06/14/2024 12:38 AM EST [facility] Eos Absolute 0.41(H) 0.00 - 0.40 x10(3)/mc L 06/14/2024 12:38 AM EST [facility] Basophil % 0.8 % 06/14/2024 12:38 AM EST [facility] Baso Absolute 0.08 0.00 - 0.10 x10(3)/mc L 06/14/2024 12:38 AM EST [facility] Immature [...] HEMATOLOGY ORDERABLE S [facility] [place] [address] * Magnesium (06/14/2024 12:12 AM EST) Magnesium 0.74 0.69 - 1.07 mMol/L 06/14/2024 12:57 AM EST [facility] Blood VENOUS BLOOD SPECIMEN / Unknown Venipuncture / Unknown 06/14/2024 12:12 AM EST 06/14/2024 12:29 AM EST Shahnaz Scanlon MD CHEMISTRY ORDERABLES [facility] [place] [address] * (ABNORMAL) Basic Metabolic Panel (06/14/2024 12:12 [...] Scanlon MD CHEMISTRY ORDERABLES Performing Organization Address City/[facility]/ZIP Co de Phone Number [facility] [place] [address] * Scan Doc: Implantable Devices (06/14/2024 12:00 [...] CARE TEST O RDBECKIE Performing Organization Address [facility]/ZIP Co de Phone Number [facility] [place] [address] * (ABNORMAL) POC, GLUCOSE (06/13/2024 8:03 PM EST) Glucometer, POC 206(H) 65 - 199 mg/dL 06/13/2024 8:03 PM EST [facility] Comment:Supplemental ranges: <140 mg/dL before meals <180 mg/dL all other times of the day. Blood CAPILLARY BLOOD / Unknown 06/13/2024 8:03 PM EST 06/13/2024 8:03 PM EST Haja Byrnes MD POINT OF CARE TEST O RDERAPIETER [facility] [place] [address] * Heparin (unfractionated) Level (06/13/2024 4:11 PM EST) [facility] UF Heparin 0.76 IU/mL 06/13/2024 4:24 [...] HEMATOLOGY ORDERABLE S [facility] [place] [address] * ABORH RECHECK (06/13/2024 4:11 PM EST) [facility] ABORH Recheck O POSITIVE 06/13/2024 4:50 PM EST [facility] Blood VENOUS BLOOD SPECIMEN / Unknown Venipuncture / Unknown 06/13/2024 4:11 PM EST 06/13/2024 4:19 PM EST Haja Byrnes MD BLOOD BANK LAB ORDER [place] [facility] [place] [address] * (ABNORMAL) POC, GLUCOSE (06/13/2024 4:09 PM EST) [facility] Glucometer, POC 216(H) 65 - 199 mg/dL 06/13/2024 4:10 PM EST [facility] Comment:Supplemental ranges: <140 mg/dL before meals <180 mg/dL all other times of the day. Blood CAPILLARY BLOOD / Unknown 06/13/2024 4:09 PM EST 06/13/2024 4:10 PM EST Haja Byrnes MD POINT OF CARE TEST O RDERABLES [facility] [place] [address] * Type and screen ([facility]/CGP/RAFITA) (06/13/2024 11:53 AM EST) Pathologist [facility] ABORH Type O POSITIVE 06/13/2024 1:16 PM EST [facility] PATIENT HISTORY Not Found 06/13/2024 1:16 PM EST [facility] Expires at [id number] on: 06/16/2024 06/13/2024 1:16 PM EST [facility] ANTIBODY SCREEN AUTOMATED Negative 06/13/2024 1:16 PM EST [facility] T&S only valid at [facility] 06/13/2024 1:16 PM EST [facility] Blood VENOUS BLOOD SPECIMEN / Unknown Venipuncture / Unknown 06/13/2024 11:53 AM EST 06/13/2024 11:56 AM EST Narrative [facility] - 06/13/2024 1:16 PM EST This Type and Screen result is only valid at the [facility] Haja Byrnes MD BLOOD BANK LAB ORDER [place] Performing Organization Address City/[facility]/ZIP Co de Phone Number [facility] [place] [address] * POC, GLUCOSE (06/13/2024 11:50 AM EST) [facility] Glucometer, POC 178 65 - 199 mg/dL 06/13/2024 11:51 AM EST [facility] Comment:Supplemental ranges: <140 mg/dL before meals <180 mg/dL all other times of the day. Blood CAPILLARY BLOOD / Unknown 06/13/2024 11:50 AM EST 06/13/2024 11:51 AM EST Haja Byrnes MD POINT OF CARE TEST O RDERABLES [facility] [place] [address] * XR Chest One View (06/13/2024 10:35 AM EST) WORKSTATION ID [id number] RAD Anatomical Region Laterality Modality Chest N/A [...] who have questions please contact the health hearing healthcare practitioner that requested your imaging first. ? Narrative [...] patients who have questions please contactthe health hearing healthcare practitioner that requested your imaging first. Electronically signed by: Jyothi Simon MD, [facility]([phone]), at 06/13/2024 10:43 AM Haja Byrnes MD IMG DX ORDERABLES * CARDIAC CATHETERIZATION (06/13/2024 9:02 AM EST) Anatomical Region Laterality Modality Other Narrative 06/15/2024 9:07 AM EST ?[facility] ? Cardiac Catheterization/Intervention Report ? Patient Name: Tyson, George L. ? Procedure Date: 06/13/2024 ? A #: [id number] ? Primary Physician: Nuha Shen I ? Case #: [id number] ? File Name: [id number] ? Catheterization Order Number: [id number] ? [facility] ? Final Report [place], [place] ? Patient Name: ? George L. Tyson ? ID#: ?[id number] ? : ?1955 ? Procedure Date: ? June 13, 2024 ?Case #: ? [id number] ? Room: ? 6 ? Case Physician: [...] ?was designated as ASA Class IV. The [facility] clinical frailty scale is 5: ?Mildly Frail. [...] was Urgent. The indication for ?the manager lab visit is ACS greater than 24 hrs [...] vascular ?ultrasound and IABP insertion in manager lab. ? Nuha I Hermelinda, M.D. ? Electronically Signed by: Nuha I Hermelinda, M.D. ? Report Finalized: 06/15/2024 ??08:59 ? Procedure Note Nuha Shen MD - 06/15/2024 [facility] Cardiac Catheterization/Intervention Report Patient Name: George Mehta Procedure Date: 06/13/2024 A #: [id number] Primary Physician: Nuha Shen I Case #: [id number] File Name: [id number] Catheterization Order Number: [id number] [facility] FinalReport [place], [place] Patient Name: George Mehta ID#:[id number] :[id number] Procedure Date: June 13, 2024 Case [...] was designated as ASA Class IV. The [facility] clinical frailty scale is5: Mildly Frail. Diagnostic [...] procedure was Urgent. The indicationfor the manager lab visit is ACS greater than 24 hrs [...] angiography,vascular ultrasound and IABP insertion in manager lab. Nuha Shen M.D. Electronically Signed by: Nuha [...] MD CHEMISTRY ORDERABLES [facility] [place] [id number] * POC, GLUCOSE (06/13/2024 7:41 AM EST) Glucometer, POC 126 65 - 199 mg/dL 06/13/2024 7:41 AM EST [facility] Comment:Supplemental ranges: <140 mg/dL before meals <180 mg/dL all other times of the day. Blood CAPILLARY BLOOD / Unknown 06/13/2024 7:41 AM EST 06/13/2024 7:41 AM EST Ethel Carrillo MD POINT OF CARE TEST O NIKA Performing Organization Address [facility] Co de Phone Number [facility] [place] [address] * POC, GLUCOSE (06/13/2024 3:25 AM EST) Glucometer, POC 99 65 - 199 mg/dL 06/13/2024 3:25 AM EST [facility] Comment:Supplemental ranges: <140 mg/dL before meals <180 mg/dL all other times of the day. Blood CAPILLARY BLOOD / Unknown 06/13/2024 3:25 AM EST 06/13/2024 3:25 AM EST Ethel Carrillo MD POINT OF CARE TEST O NIKA Performing Organization Address [facility] de Phone Number [facility] [place] [address] * Heparin (unfractionated) Level (06/13/2024 2:26 AM [...] HEMATOLOGY ORDERABLE S [facility] [place] [address] * (ABNORMAL) CBC (with Diff) (06/13/2024 2:26 [...] - 0.10 x10(3)/mc L 06/13/2024 2:41 AM [facility] HEMATOLOGY ORDERABLE S [facility] [place] [address] * Magnesium (06/13/2024 2:26 AM EST) Magnesium 0.78 0.69 - 1.07 mMol/L 06/13/2024 2:58 AM [facility] Blood VENOUS BLOOD SPECIMEN / Unknown Venipuncture / Unknown 06/13/2024 2:26 AM EST 06/13/2024 2:31 AM EST Shahnaz Scanlon MD CHEMISTRY ORDERABLES [facility] [place] [address] * (ABNORMAL) Basic Metabolic Panel (06/13/2024 2:26 AM EST) Pathologist [facility] Glucose 121 65 - 199 mg/dL 06/13/2024 [...] mL/min/1. 73 m?? 06/13/2024 2:58 AM EST [facility] Comment: [...] MD CHEMISTRY ORDERABLES [facility] [place] [address] * POC, GLUCOSE (06/12/2024 11:53 PM EST) Glucometer, POC 141 65 - 199 mg/dL 06/12/2024 11:54 PM EST [facility] Comment:Supplemental ranges: <140 mg/dL before meals <180 mg/dL all other times of the day. Blood CAPILLARY BLOOD / Unknown 06/12/2024 11:53 PM EST 06/12/2024 11:54 PM EST Ethel Carrillo MD POINT OF CARE TEST O RDERABLES [facility] [place] [address] * POC, GLUCOSE (06/12/2024 7:32 PM EST) Glucometer, POC 158 65 - 199 mg/dL 06/12/2024 7:32 PM EST [facility] Comment:Supplemental ranges: <140 mg/dL before meals <180 mg/dL all other times of the day. Blood CAPILLARY BLOOD / Unknown 06/12/2024 7:32 PM EST 06/12/2024 7:32 PM EST Ethel Carrillo MD POINT OF CARE TEST O NIKA Performing Organization Address City/[facility] Co de Phone Number [facility] [place] [address] * POC, GLUCOSE (06/12/2024 3:41 PM EST) Glucometer, POC 113 65 - 199 mg/dL 06/12/2024 3:41 PM EST [facility] Comment:Supplemental ranges: <140 mg/dL before meals <180 mg/dL all other times of the day. Blood CAPILLARY BLOOD / Unknown 06/12/2024 3:41 PM EST 06/12/2024 3:41 PM EST Ethel Carrillo MD POINT OF CARE TEST Abimael MAHER Performing Organization Address [facility] Co de Phone Number [facility] [place] [address] * Potassium (06/12/2024 2:19 PM EST) Potassium 4.5 3.5 - 5.0 mMol/L 06/12/2024 2:45 PM EST [facility] Blood VENOUS BLOOD SPECIMEN / Unknown Venipuncture / Unknown 06/12/2024 2:19 PM EST 06/12/2024 2:23 PM EST Shahnaz Scanlon MD CHEMISTRY ORDERABLES Performing Organization Address [facility] Co de Phone Number [facility] [place] [address] * (ABNORMAL) POC, GLUCOSE (06/12/2024 11:21 AM EST) Glucometer, POC 207(H) 65 - 199 mg/dL 06/12/2024 11:21 AM EST [facility] Comment:Supplemental ranges: <140 mg/dL before meals <180 mg/dL all other times of the day. Blood CAPILLARY BLOOD / Unknown 06/12/2024 11:21 AM EST 06/12/2024 11:22 AM EST Ethel Carrillo MD POINT OF CARE TEST O NIKA Performing Organization Address [facility] Co de Phone Number [facility] [place] [address] * POC, GLUCOSE (06/12/2024 8:00 AM EST) Glucometer, POC 169 65 - 199 mg/dL 06/12/2024 8:01 AM EST [facility] Comment:Supplemental ranges: <140 mg/dL before meals <180 mg/dL all other times of the day. Blood CAPILLARY BLOOD / Unknown 06/12/2024 8:00 AM EST 06/12/2024 8:01 AM EST Ethel Carrillo MD POINT OF CARE TEST O NIKA Performing Organization Address [facility]/ZIP Co de Phone Number [facility] [place] [address] * POC, GLUCOSE (06/12/2024 4:25 AM EST) Glucometer, POC 132 65 - 199 mg/dL 06/12/2024 4:26 AM EST [facility] Comment:Supplemental ranges: <140 mg/dL before meals <180 mg/dL all other times of the day. Blood CAPILLARY BLOOD / Unknown 06/12/2024 4:25 AM EST 06/12/2024 4:26 AM EST Ethel Carrillo MD POINT OF CARE TEST O NIKA [facility] [place] [address] * Heparin (unfractionated) Level (06/12/2024 3:03 AM EST) Pathologist [facility] UF Heparin 0.55 IU/mL 06/12/2024 3:44 AM [...] HEMATOLOGY ORDERABLE S [facility] [place] [address] * (ABNORMAL) CBC (with Diff) (06/12/2024 3:03 AM EST) Pathologist [facility] White Blood Cell 9.69(H) 4.00 - 9.50 x10(3)/mc L 06/12/2024 3:36 AM EST [facility] Red Blood Cell 5.05 4.58 - 5.54 x10(6)/mc L 06/12/2024 3:36 AM EST [facility] Hemoglobin 15.2 13.7 - 16.5 g/dL 06/12/2024 3:36 AM EST [facility] Hematocrit 46.6 40.5 - 48.5 [...] HEMATOLOGY ORDERABLE S [facility] [place] [address] * Magnesium (06/12/2024 3:03 AM EST) Magnesium 0.79 0.69 - 1.07 mMol/L 06/12/2024 4:01 AM [facility] Blood VENOUS BLOOD SPECIMEN / Unknown Venipuncture / Unknown 06/12/2024 3:03 AM EST 06/12/2024 3:30 AM EST Shahnaz Scanlon MD CHEMISTRY ORDERABLES [facility] [place] [address] * (ABNORMAL) Basic Metabolic Panel (06/12/2024 3:03 [...] Scanlon MD CHEMISTRY ORDERABLES Performing Organization Address [facility] Co de Phone Number [facility] [place] [address] * POC, GLUCOSE (06/11/2024 11:56 PM EST) Glucometer, POC 135 65 - 199 mg/dL 06/11/2024 11:56 PM EST [facility] Comment:Supplemental ranges: <140 mg/dL before meals <180 mg/dL all other times of the day. Blood CAPILLARY BLOOD / Unknown 06/11/2024 11:56 PM EST 06/11/2024 11:56 PM EST Ethel Carrillo MD POINT OF CARE TEST O NIKA Performing Organization Address [facility] de Phone Number [facility] [place] [address] * (ABNORMAL) POC, GLUCOSE (06/11/2024 8:25 PM EST) Glucometer, POC 210(H) 65 - 199 mg/dL 06/11/2024 8:26 PM EST [facility] Comment:Supplemental ranges: <140 mg/dL before meals <180 mg/dL all other times of the day. Blood CAPILLARY BLOOD / Unknown 06/11/2024 8:25 PM EST 06/11/2024 8:26 PM EST Ethel Carrillo MD POINT OF CARE TEST O NIKA Performing Organization Address [facility] Co de Phone Number [facility] [place] [address] * POC, GLUCOSE (06/11/2024 4:24 PM EST) Glucometer, POC 81 65 - 199 mg/dL 06/11/2024 4:24 PM EST [facility] Comment:Supplemental ranges: <140 mg/dL before meals <180 mg/dL all other times of the day. Blood CAPILLARY BLOOD / Unknown 06/11/2024 4:24 PM EST 06/11/2024 4:25 PM EST Ethel Carrillo MD POINT OF CARE TEST O RDERAPIETER [facility] [place] [address] * (ABNORMAL) POC, GLUCOSE (06/11/2024 11:08 AM EST) Glucometer, POC 233(H) 65 - 199 mg/dL 06/11/2024 11:08 AM EST [facility] Comment:Supplemental ranges: <140 mg/dL before meals <180 mg/dL all other times of the day. Blood CAPILLARY BLOOD / Unknown 06/11/2024 11:08 AM EST 06/11/2024 11:08 AM EST Ethel Carrillo MD POINT OF CARE TEST O NIKA [facility] [place] [address] * POC, GLUCOSE (06/11/2024 7:48 AM EST) Glucometer, POC 184 65 - 199 mg/dL 06/11/2024 7:49 AM EST [facility] Comment:Supplemental ranges: <140 mg/dL before meals <180 mg/dL all other times of the day. Blood CAPILLARY BLOOD / Unknown 06/11/2024 7:48 AM EST 06/11/2024 7:49 AM EST Melida Valdes MD POINT OF CARE TEST O RDERAPIETER [facility] [place] [address] * Heparin (unfractionated) Level (06/11/2024 5:31 AM [...] HEMATOLOGY ORDERABLE S [facility] [place] [address] * POC, GLUCOSE (06/11/2024 3:57 AM EST) Glucometer, POC 132 65 - 199 mg/dL 06/11/2024 3:58 AM EST [facility] Comment:Supplemental ranges: <140 mg/dL before meals <180 mg/dL all other times of the day. Blood CAPILLARY BLOOD / Unknown 06/11/2024 3:57 AM EST 06/11/2024 3:58 AM EST Melida Valdes MD POINT OF CARE TEST O RDERABLES Performing Organization Address City/[facility]/ZIP Co de Phone Number [facility] [place] [address] * (ABNORMAL) CBC (with Diff) (06/11/2024 2:13 AM [facility]) [facility] White Blood Cell 9.91(H) 4.00 - 9.50 [...] HEMATOLOGY ORDERABLE S [facility] [place] [address] * Magnesium (06/11/2024 2:13 AM EST) Magnesium 0.83 0.69 - 1.07 mMol/L 06/11/2024 2:51 AM [facility] Blood VENOUS BLOOD SPECIMEN / Unknown Venipuncture / Unknown 06/11/2024 2:13 AM EST 06/11/2024 2:19 AM EST Shahnaz Scanlon MD CHEMISTRY ORDERABLES [facility] [place] [address] * (ABNORMAL) Basic Metabolic Panel (06/11/2024 2:13 AM EST) Glucose 148 65 - 199 mg/dL 06/11/2024 2:51 AM [facility] Comment:Glucose Concentratio n >=200 mg/dL plus symptoms is consistent with Diabetes Mellitus. Blood Urea Nitrogen 24(H) 10 - 20 mg/dL 06/11/2024 2:51 AM [facility] 5 - 15 mMol/L 06/11/2024 2:51 AM [facility] Calcium 9.4 8.5 - 10.5 mg/dL 06/11/2024 2:51 AM [facility] Est Glomerular Filtration Rate - Male 77 mL/min/1. 73 m?? 06/11/2024 2:51 AM [facility] Scanlon MD CHEMISTRY ORDERABLES Performing Organization Address [facility]/ZIP Co de Phone Number [facility] [place] [address] * POC, GLUCOSE (06/11/2024 12:50 AM EST) Glucometer, POC 144 65 - 199 mg/dL 06/11/2024 12:51 AM EST [facility] Comment:Supplemental ranges: <140 mg/dL before meals <180 mg/dL all other times of the day. Blood CAPILLARY BLOOD / Unknown 06/11/2024 12:50 AM EST 06/11/2024 12:51 AM EST Melida Valdes MD POINT OF CARE TEST O RDERABLES Performing Organization Address [facility]/ZIP Co de Phone Number [facility] [place] [address] * (ABNORMAL) POC, GLUCOSE (06/10/2024 7:22 PM EST) Glucometer, POC 236(H) 65 - 199 mg/dL 06/10/2024 7:22 PM EST [facility] Comment:Supplemental ranges: <140 mg/dL before meals <180 mg/dL all other times of the day. Blood CAPILLARY BLOOD / Unknown 06/10/2024 7:22 PM EST 06/10/2024 7:22 PM EST Melida Valdes MD POINT OF CARE TEST O RDERAPIETER [facility] [place] [address] * (ABNORMAL) Blood Gas, Venous (06/10/2024 5:42 PM EST) pH, Venous 7.34 7.32 - 7.42 06/10/2024 5:50 PM EST [facility] PCO2, Venous 52 38 - [...] 0.5 <=1.5 % 06/10/2024 5:50 PM EST [facility] Sodium, Venous 137 135 - 145 mmol/L 06/10/2024 5:50 PM EST [facility] Chloride, Venous 96(L) 98 - 107 mmol/L 06/10/2024 5:50 PM [facility] Potassium, Venous 4.6 3.5 - 5.0 mmol/L 06/10/2024 5:50 PM EST [facility] Ionized Calcium, Venous 1.23 1.15 - 1.33 mmol/L 06/10/2024 5:50 PM [facility] Glucose, Venous 114 65 - 199 mg/dL 06/10/2024 5:50 PM EST [facility] Comment:Glucose [...] MD CHEMISTRY ORDERABLES [facility] [place] [address] * POC, GLUCOSE (06/10/2024 5:35 PM EST) Glucometer, POC 123 65 - 199 mg/dL 06/10/2024 5:35 PM EST [facility] Comment:Supplemental ranges: <140 mg/dL before meals <180 mg/dL all other times of the day. Blood CAPILLARY BLOOD / Unknown 06/10/2024 5:35 PM EST 06/10/2024 5:35 PM EST Melida Valdes MD POINT OF CARE TEST O RDERABLES [facility] [place] [address] * (ABNORMAL) POC, GLUCOSE (06/10/2024 11:25 AM EST) Glucometer, POC 216(H) 65 - 199 mg/dL 06/10/2024 11:25 AM EST [facility] Comment:Supplemental ranges: <140 mg/dL before meals <180 mg/dL all other times of the day. Blood CAPILLARY BLOOD / Unknown 06/10/2024 11:25 AM EST 06/10/2024 11:25 AM EST Melida Valdes MD POINT OF CARE TEST O NIKA [facility] [place] [address] * (ABNORMAL) POC, GLUCOSE (06/10/2024 7:46 AM EST) Glucometer, POC 206(H) 65 - 199 mg/dL 06/10/2024 7:46 AM EST [facility] Comment:Supplemental ranges: <140 mg/dL before meals <180 mg/dL all other times of the day. Blood CAPILLARY BLOOD / Unknown 06/10/2024 7:46 AM EST 06/10/2024 7:46 AM EST Melida Valdes MD POINT OF CARE TEST O NIKA Performing Organization Address [facility]/ZIP Co de Phone Number [facility] [place] [address] * POC, GLUCOSE (06/10/2024 4:23 AM EST) Glucometer, POC 154 65 - 199 mg/dL 06/10/2024 4:24 AM EST [facility] Comment:Supplemental ranges: <140 mg/dL before meals <180 mg/dL all other times of the day. Blood CAPILLARY BLOOD / Unknown 06/10/2024 4:23 AM EST 06/10/2024 4:24 AM EST Melida Valdes MD POINT OF CARE TEST O NIKA Performing Organization Address City/[facility]/ZIP Co de Phone Number [facility] [place] [address] * (ABNORMAL) CBC (with Diff) (06/10/2024 1:55 [...] - 3.20 x10(3)/mc L 06/10/2024 2:14 AM EST [facility] Monocyte % 11.2 % 06/10/2024 [...] HEMATOLOGY ORDERABLE S [facility] [place] [address] * Magnesium (06/10/2024 1:55 AM EST) Magnesium 0.83 0.69 - 1.07 mMol/L 06/10/2024 2:37 AM EST [facility] Blood VENOUS BLOOD SPECIMEN / Unknown Venipuncture / Unknown 06/10/2024 1:55 AM EST 06/10/2024 2:05 AM EST Shahnaz Scanlon MD CHEMISTRY ORDERABLES [facility] [place] [address] * (ABNORMAL) Basic Metabolic Panel (06/10/2024 1:55 [...] m?? 06/10/2024 2:37 AM [facility] MD CHEMISTRY ORDERABLES [facility] [place] [address] * Heparin (unfractionated) Level (06/10/2024 1:54 AM [...] MD HEMATOLOGY ORDERABLE S Performing Organization Address [facility]/ZIP Co de Phone Number [facility] [place] [address] * POC, GLUCOSE (06/10/2024 12:05 AM EST) Glucometer, POC 125 65 - 199 mg/dL 06/10/2024 12:05 AM EST [facility] Comment:Supplemental ranges: <140 mg/dL before meals <180 mg/dL all other times of the day. Blood CAPILLARY BLOOD / Unknown 06/10/2024 12:05 AM EST 06/10/2024 12:05 AM EST Melida Valdes MD POINT OF CARE TEST O NIKA Performing Organization Address [facility] Co de Phone Number [facility] [place] [address] * POC, GLUCOSE (06/09/2024 8:36 PM EST) Glucometer, POC 197 65 - 199 mg/dL 06/09/2024 8:36 PM EST [facility] Comment:Supplemental ranges: <140 mg/dL before meals <180 mg/dL all other times of the day. Blood CAPILLARY BLOOD / Unknown 06/09/2024 8:36 PM EST 06/09/2024 8:36 PM EST Melida Valdes MD POINT OF CARE TEST O NIKA Performing Organization Address City/[facility]/ZIP Co de Phone Number [facility] [place] [address] * POC, GLUCOSE (06/09/2024 5:27 PM EST) Glucometer, POC 174 65 - 199 mg/dL 06/09/2024 5:28 PM EST [facility] Comment:Supplemental ranges: <140 mg/dL before meals <180 mg/dL all other times of the day. Blood CAPILLARY BLOOD / Unknown 06/09/2024 5:27 PM EST 06/09/2024 5:28 PM EST Melida Valdes MD POINT OF CARE TEST O NIKA Performing Organization Address City/[facility] Co de Phone Number [facility] [place] [address] * (ABNORMAL) POC, GLUCOSE (06/09/2024 11:52 AM EST) Glucometer, POC 211(H) 65 - 199 mg/dL 06/09/2024 11:52 AM EST [facility] Comment:Supplemental ranges: <140 mg/dL before meals <180 mg/dL all other times of the day. Blood CAPILLARY BLOOD / Unknown 06/09/2024 11:52 AM EST 06/09/2024 11:52 AM EST Melida Valdes MD POINT OF CARE TEST Abimael MAHER Performing Organization Address [facility] Co de Phone Number [facility] [place] [address] * Potassium (06/09/2024 8:25 AM EST) Potassium 4.6 3.5 - 5.0 mMol/L 06/09/2024 10:09 AM EST [facility] Blood VENOUS BLOOD SPECIMEN / Unknown Venipuncture / Unknown 06/09/2024 8:25 AM EST 06/09/2024 8:42 AM EST Shahnaz Scanlon MD CHEMISTRY ORDERABLES Performing Organization Address City/[facility] Co de Phone Number [facility] [place] [address] * (ABNORMAL) POC, GLUCOSE (06/09/2024 8:10 AM EST) Glucometer, POC 209(H) 65 - 199 mg/dL 06/09/2024 8:10 AM EST [facility] Comment:Supplemental ranges: <140 mg/dL before meals <180 mg/dL all other times of the day. Blood CAPILLARY BLOOD / Unknown 06/09/2024 8:10 AM EST 06/09/2024 8:11 AM EST Melida Valdes MD POINT OF CARE TEST O NIKA Performing Organization Address [facility] Co de Phone Number [facility] [place] [address] * POC, GLUCOSE (06/09/2024 4:40 AM EST) Glucometer, POC 131 65 - 199 mg/dL 06/09/2024 4:40 AM EST [facility] Comment:Supplemental ranges: <140 mg/dL before meals <180 mg/dL all other times of the day. Blood CAPILLARY BLOOD / Unknown 06/09/2024 4:40 AM EST 06/09/2024 4:41 AM EST Melida Valdes MD POINT OF CARE TEST Abimael MAHER Performing Organization Address [facility] de Phone Number [facility] [place] [address] * Heparin (unfractionated) Level (06/09/2024 2:12 AM [...] HEMATOLOGY ORDERABLE S [facility] [place] [address] * (ABNORMAL) CBC (with Diff) (06/09/2024 2:12 AM EST) White Blood Cell 9.80(H) 4.00 - 9.50 x10(3)/mc L 06/09/2024 2:44 AM [facility] Red Blood Cell 5.18 4.58 - 5.54 x10(6)/mc L 06/09/2024 2:44 AM [facility] Hemoglobin 15.5 13.7 - [...] 0.6 % 2:44 AM [facility] Immature Gran Absolute 0.06(H) 0.00 - 0.04 x10(3)/mc L 06/09/2024 2:44 AM [facility] Blood VENOUS BLOOD SPECIMEN / Unknown Venipuncture / Unknown 06/09/2024 2:12 AM EST 06/09/2024 2:21 AM EST Shahnaz Scanlon MD HEMATOLOGY ORDERABLE S Performing Organization Address City/[facility]/ZIP Co de Phone Number [facility] [place] [address] * Magnesium (06/09/2024 2:12 AM EST) Magnesium 0.83 0.69 - 1.07 mMol/L 06/09/2024 2:52 AM EST [facility] Blood VENOUS BLOOD SPECIMEN / Unknown Venipuncture / Unknown 06/09/2024 2:12 AM EST 06/09/2024 2:22 AM EST Shahnaz Scanlon MD CHEMISTRY ORDERABLES Performing Organization Address City/[facility]/ZIP Co de Phone Number [facility] [place] [address] * (ABNORMAL) Basic Metabolic Panel (06/09/2024 2:12 AM EST) Glucose 147 65 - 199 mg/dL 06/09/2024 2:52 AM EST [facility] Comment:Glucose Concentratio n >=200 mg/dL plus symptoms is consistent with Diabetes Mellitus. Blood Urea Nitrogen 24(H) 10 - 20 mg/dL 06/09/2024 2:52 AM EST [facility] Creatinine 1.11 0.80 - 1.50 [...] 22 - 31 mMol/L 06/09/2024 2:52 AM EST [facility] Anion Gap 11 5 - 15 mMol/L 06/09/2024 2:52 AM EST [facility] Calcium 9.7 8.5 - 10.5 mg/dL 06/09/2024 2:52 AM EST [facility] Est Glomerular Filtration Rate - Male 73 mL/min/1. 73 m?? 06/09/2024 2:52 AM EST [facility] Comment: [...] MD CHEMISTRY ORDERABLES [facility] [place] [address] * POC, GLUCOSE (06/09/2024 12:34 AM EST) Glucometer, POC 186 65 - 199 mg/dL 06/09/2024 12:34 AM EST [facility] Comment:Supplemental ranges: <140 mg/dL before meals <180 mg/dL all other times of the day. Blood CAPILLARY BLOOD / Unknown 06/09/2024 12:34 AM EST 06/09/2024 12:34 AM EST Melida Valdes MD POINT OF CARE TEST O RDERABLES [facility] [place] [address] * POC, GLUCOSE (06/08/2024 8:27 PM EST) Glucometer, POC 176 65 - 199 mg/dL 06/08/2024 8:28 PM EST [facility] Comment:Supplemental ranges: <140 mg/dL before meals <180 mg/dL all other times of the day. Blood CAPILLARY BLOOD / Unknown 06/08/2024 8:27 PM EST 06/08/2024 8:28 PM EST Melida Valdes MD POINT OF CARE TEST O NIKA [facility] [place] [address] * POC, GLUCOSE (06/08/2024 4:16 PM EST) Glucometer, POC 159 65 - 199 mg/dL 06/08/2024 4:16 PM EST [facility] Comment:Supplemental ranges: <140 mg/dL before meals <180 mg/dL all other times of the day. Blood CAPILLARY BLOOD / Unknown 06/08/2024 4:16 PM EST 06/08/2024 4:16 PM EST Melida Valdes MD POINT OF CARE TEST O NIKA [facility] [place] [address] * (ABNORMAL) POC, GLUCOSE (06/08/2024 12:35 PM EST) Glucometer, POC 226(H) 65 - 199 mg/dL 06/08/2024 12:35 PM EST [facility] Comment:Supplemental ranges: <140 mg/dL before meals <180 mg/dL all other times of the day. Blood CAPILLARY BLOOD / Unknown 06/08/2024 12:35 PM EST 06/08/2024 12:35 PM EST Melida Valdes MD POINT OF CARE TEST O NIKA Performing Organization Address [facility] Co de Phone Number [facility] [place] [address] * POC, GLUCOSE (06/08/2024 8:10 AM EST) Glucometer, POC 190 65 - 199 mg/dL 06/08/2024 8:14 AM EST [facility] Comment:Supplemental ranges: <140 mg/dL before meals <180 mg/dL all other times of the day. Blood CAPILLARY BLOOD / Unknown 06/08/2024 8:10 AM EST 06/08/2024 8:14 AM EST Melida Valdes MD POINT OF CARE TEST O NIKA Performing Organization Address [facility] de Phone Number [facility] [place] [address] * POC, GLUCOSE (06/08/2024 4:09 AM EST) Glucometer, POC 151 65 - 199 mg/dL 06/08/2024 4:10 AM EST [facility] Comment:Supplemental ranges: <140 mg/dL before meals <180 mg/dL all other times of the day. Blood CAPILLARY BLOOD / Unknown 06/08/2024 4:09 AM EST 06/08/2024 4:10 AM EST Melida Valdes MD POINT OF CARE TEST Abimael MAHER Performing Organization Address [facility] Co de Phone Number [facility] [place] [address] * Heparin (unfractionated) Level (06/08/2024 3:21 AM EST) UF Heparin 0.46 IU/mL 06/08/2024 3:41 AM EST [facility] Comment: [...] MD HEMATOLOGY ORDERABLE S Performing Organization Address City/State/[facility] Co de Phone Number [facility] [place] [address] * (ABNORMAL) CBC (with Diff) (06/08/2024 3:21 AM EST) White Blood Cell 9.92(H) 4.00 - 9.50 x10(3)/mc L 06/08/2024 3:34 AM [facility] Red Blood Cell 5.09 4.58 - 5.54 x10(6)/mc L 06/08/2024 3:34 AM [facility] Hemoglobin 15.1 13.7 - [...] Basophil % 0.8 % 06/08/2024 3:34 AM EST [facility] Baso Absolute 0.08 0.00 - 0.10 x10(3)/mc L 06/08/2024 3:34 AM EST [facility] Immature [...] HEMATOLOGY ORDERABLE S [facility] [place] [address] * Magnesium (06/08/2024 3:21 AM EST) Magnesium 0.84 0.69 - 1.07 mMol/L 06/08/2024 3:59 AM [facility] Blood VENOUS BLOOD SPECIMEN / Unknown Venipuncture / Unknown 06/08/2024 3:21 AM EST 06/08/2024 3:27 AM EST Shahnaz Scanlon MD CHEMISTRY ORDERABLES [facility] [place] [address] * (ABNORMAL) Basic Metabolic Panel (06/08/2024 3:21 [...] MD CHEMISTRY ORDERABLES [facility] [place] [address] * POC, GLUCOSE (06/07/2024 11:57 PM EST) [facility] Signature Glucometer, POC 188 65 - 199 mg/dL 06/07/2024 11:57 PM EST [facility] Comment:Supplemental ranges: <140 mg/dL before meals <180 mg/dL all other times of the day. Blood CAPILLARY BLOOD / Unknown 06/07/2024 11:57 PM EST 06/07/2024 11:58 PM EST Melida Valdes MD POINT OF CARE TEST O NIKA Performing Organization Address City/[facility]/ZIP Co de Phone Number [facility] [place] [address] * POC, GLUCOSE (06/07/2024 8:05 PM EST) Glucometer, POC 118 65 - 199 mg/dL 06/07/2024 8:06 PM EST [facility] Comment:Supplemental ranges: <140 mg/dL before meals <180 mg/dL all other times of the day. Blood CAPILLARY BLOOD / Unknown 06/07/2024 8:05 PM EST 06/07/2024 8:06 PM EST Melida Valdes MD POINT OF CARE TEST O NIKA Performing Organization Address [facility] Co de Phone Number [facility] [place] [address] * Potassium (06/07/2024 5:22 PM EST) Potassium 4.6 3.5 - 5.0 mMol/L 06/07/2024 5:59 PM EST [facility] Blood VENOUS BLOOD SPECIMEN / Unknown Venipuncture / Unknown 06/07/2024 5:22 PM EST 06/07/2024 5:26 PM EST Shahnaz Scanlon MD CHEMISTRY ORDERABLES Performing Organization Address City/[facility] Co de Phone Number [facility] [place] [address] * POC, GLUCOSE (06/07/2024 4:31 PM EST) Glucometer, POC 174 65 - 199 mg/dL 06/07/2024 4:34 PM EST [facility] Comment:Supplemental ranges: <140 mg/dL before meals <180 mg/dL all other times of the day. Blood CAPILLARY BLOOD / Unknown 06/07/2024 4:31 PM EST 06/07/2024 4:34 PM EST Melida Valdes MD POINT OF CARE TEST O RDERABLES [facility] [place] [address] * MRI Cardiac Morphology Function wwo Contrast (06/07/2024 1:10 PM EST) WORKSTATION ID [id number] RAD Anatomical Region Laterality Modality Magnetic Resonan [...] - Mildly dilated left ventricle size with zzumqirc-uz-slojtipq decreased LV systolic function. ??LV ejection fraction [...] who have questions please contact the health hearing healthcare practitioner that requested your imaging first. ? Electronically signed by: Kriss Alonzo MD, [facility] ([phone]), at 06/07/2024 2:41 PM Narrative 06/07/2024 2:41 [...] VENTRICLE: Mildly dilated left ventricle size with cbbvhovz-si-yqmqxptn decreased LV systolic function. ??LV ejection fraction [...] VENTRICLE: Mildly dilated left ventricle size with hwmmoanc-he-hjrumciq decreasedLV systolic function. LV ejection fraction is [...] - Mildly dilated left ventricle size with scevwqzs-hc-ubuurvzg decreasedLV systolic function. LV ejection fraction is [...] patients who have questions please contactthe health hearing healthcare practitioner that requested your imaging first. Electronically signed by: Kriss Alonzo MD, [facility]([phone]), at 06/07/2024 2:41 PM Delroy Fofana MD [facility] [place] ORDERABLES * (ABNORMAL) POC, GLUCOSE (06/07/2024 11:05 AM EST) [facility] Glucometer, POC 221(H) 65 - 199 mg/dL 06/07/2024 11:06 AM EST [facility] Comment:Supplemental ranges: <140 mg/dL before meals <180 mg/dL all other times of the day. Blood CAPILLARY BLOOD / Unknown 06/07/2024 11:05 AM EST 06/07/2024 11:06 AM EST Melida Valdes MD POINT OF CARE TEST O RDERAPIETER Performing Organization Address City/[facility]/ZIP Co de Phone Number [facility] [place] [address] * (ABNORMAL) POC, GLUCOSE (06/07/2024 11:03 AM EST) Glucometer, POC 250(H) 65 - 199 mg/dL 06/07/2024 11:04 AM EST [facility] Comment:Supplemental ranges: <140 mg/dL before meals <180 mg/dL all other times of the day. Blood CAPILLARY BLOOD / Unknown 06/07/2024 11:03 AM EST 06/07/2024 11:04 AM EST Melida Valdes MD POINT OF CARE TEST O NIKA Performing Organization Address [facility] Co de Phone Number [facility] [place] [address] * Potassium (06/07/2024 9:44 AM EST) Potassium 4.7 3.5 - 5.0 mMol/L 06/07/2024 10:23 AM EST [facility] Blood VENOUS BLOOD SPECIMEN / Unknown Venipuncture / Unknown 06/07/2024 9:44 AM EST 06/07/2024 9:57 AM EST Shahnaz Scanlon MD CHEMISTRY ORDERABLES Performing Organization Address City/[facility]/ZIP Co de Phone Number [facility] [place] [address] * POC, GLUCOSE (06/07/2024 7:45 AM EST) Glucometer, POC 175 65 - 199 mg/dL 06/07/2024 7:45 AM EST [facility] Comment:Supplemental ranges: <140 mg/dL before meals <180 mg/dL all other times of the day. Blood CAPILLARY BLOOD / Unknown 06/07/2024 7:45 AM EST 06/07/2024 7:46 AM EST Melida Valdes MD POINT OF CARE TEST O RDERABLES [facility] [address] [place] [place] [address] * XR Chest PA & Lateral (Generic) (06/07/2024 7:03 AM EST) WORKSTATION ID [id number] RAD Anatomical Region Laterality Modality Chest N/A [...] who have questions please contact the health hearing healthcare practitioner that requested your imaging first. ? Narrative [...] patients who have questions please contactthe health hearing healthcare practitioner that requested your imaging first. Electronically signed by: Stuart Aponte MD, [facility]([phone]), at 06/07/2024 10:45 AM Shahnaz Scanlon MD IMG DX ORDERABLES * POC, GLUCOSE (06/07/2024 4:25 AM EST) [facility] Signature Glucometer, POC 127 65 - 199 mg/dL 06/07/2024 4:26 AM EST [facility] Comment:Supplemental ranges: <140 mg/dL before meals <180 mg/dL all other times of the day. Blood CAPILLARY BLOOD / Unknown 06/07/2024 4:25 AM EST 06/07/2024 4:26 AM EST Melida Valdes MD POINT OF CARE TEST O RDERABLES [facility] [place] [address] * Heparin (unfractionated) Level (06/07/2024 2:41 AM [...] MD HEMATOLOGY ORDERABLE S Performing Organization Address City/[facility]/ZIP Co de Phone Number [facility] [place] [address] * (ABNORMAL) CBC (with Diff) (06/07/2024 2:41 AM EST) White Blood Cell 10.06(H) 4.00 - 9.50 x10(3)/mc L 06/07/2024 2:58 AM EST [facility] Red Blood Cell 5.02 4.58 - 5.54 x10(6)/mc L 06/07/2024 2:58 AM EST [facility] Hemoglobin 14.8 13.7 - 16.5 [...] Monocyte % 10.8 % 06/07/2024 2:58 AM EST [facility] HEMATOLOGY ORDERABLE S [facility] [place] [address] * Magnesium (06/07/2024 2:41 AM EST) Magnesium 0.92 0.69 - 1.07 mMol/L 06/07/2024 3:25 AM EST [facility] Blood VENOUS BLOOD SPECIMEN / Unknown Venipuncture / Unknown 06/07/2024 2:41 AM EST 06/07/2024 2:51 AM EST Shahnaz Scanlon MD CHEMISTRY ORDERABLES [facility] [place] [address] * (ABNORMAL) Basic Metabolic Panel (06/07/2024 2:41 [...] Scanlon MD CHEMISTRY ORDERABLES Performing Organization Address [facility] Co de Phone Number [facility] [place] [address] * POC, GLUCOSE (06/07/2024 12:08 AM EST) Glucometer, POC 182 65 - 199 mg/dL 06/07/2024 12:09 AM EST [facility] Comment:Supplemental ranges: <140 mg/dL before meals <180 mg/dL all other times of the day. Blood CAPILLARY BLOOD / Unknown 06/07/2024 12:08 AM EST 06/07/2024 12:09 AM EST Melida Valdes MD POINT OF CARE TEST O RDBECKIE Performing Organization Address [facility] Co de Phone Number [facility] [place] [address] * POC, GLUCOSE (06/06/2024 8:18 PM EST) Glucometer, POC 143 65 - 199 mg/dL 06/06/2024 8:19 PM EST [facility] Comment:Supplemental ranges: <140 mg/dL before meals <180 mg/dL all other times of the day. Blood CAPILLARY BLOOD / Unknown 06/06/2024 8:18 PM EST 06/06/2024 8:19 PM EST Melida Valdes MD POINT OF CARE TEST O NIKA Performing Organization Address [facility] Co de Phone Number [facility] [place] [address] * POC, GLUCOSE (06/06/2024 3:39 PM EST) Glucometer, POC 147 65 - 199 mg/dL 06/06/2024 3:40 PM EST [facility] Comment:Supplemental ranges: <140 mg/dL before meals <180 mg/dL all other times of the day. Blood CAPILLARY BLOOD / Unknown 06/06/2024 3:39 PM EST 06/06/2024 3:40 PM EST Melida Valdes MD POINT OF CARE TEST O NIKA Performing Organization Address City/[facility]/ZIP Co de Phone Number [facility] [place] [address] * Potassium (06/06/2024 2:37 PM EST) Potassium 4.3 3.5 - 5.0 mMol/L 06/06/2024 3:01 PM EST [facility] Blood VENOUS BLOOD SPECIMEN / Unknown Venipuncture / Unknown 06/06/2024 2:37 PM EST 06/06/2024 2:42 PM EST Shahnaz Scanlon MD CHEMISTRY ORDERABLES Performing Organization Address [facility] Co de Phone Number [facility] [place] [address] * (ABNORMAL) POC, GLUCOSE (06/06/2024 1:39 PM EST) Glucometer, POC 317(H) 65 - 199 mg/dL 06/06/2024 1:40 PM EST [facility] Comment:Supplemental ranges: <140 mg/dL before meals <180 mg/dL all other times of the day. Blood CAPILLARY BLOOD / Unknown 06/06/2024 1:39 PM EST 06/06/2024 1:41 PM EST Melida Valdes MD POINT OF CARE TEST O NIKA Performing Organization Address [facility] Co de Phone Number [facility] [place] [address] * (ABNORMAL) POC, GLUCOSE (06/06/2024 11:34 AM EST) Glucometer, POC 264(H) 65 - 199 mg/dL 06/06/2024 11:35 AM EST [facility] Comment:Supplemental ranges: <140 mg/dL before meals <180 mg/dL all other times of the day. Blood CAPILLARY BLOOD / Unknown 06/06/2024 11:34 AM EST 06/06/2024 11:35 AM EST Melida Valdes MD POINT OF CARE TEST O NIKA Performing Organization Address City/[facility]/ZIP Co de Phone Number [facility] [place] [address] * Potassium (06/06/2024 10:17 AM EST) Potassium 4.3 3.5 - 5.0 mMol/L 06/06/2024 10:46 AM EST [facility] Blood VENOUS BLOOD SPECIMEN / Unknown Venipuncture / Unknown 06/06/2024 10:17 AM EST 06/06/2024 10:22 AM EST Shahnaz Scanlon MD CHEMISTRY ORDERABLES Performing Organization Address [facility] Co de Phone Number [facility] [place] [address] * POC, GLUCOSE (06/06/2024 7:57 AM EST) Glucometer, POC 195 65 - 199 mg/dL 06/06/2024 8:03 AM EST [facility] Comment:Supplemental ranges: <140 mg/dL before meals <180 mg/dL all other times of the day. Blood CAPILLARY BLOOD / Unknown 06/06/2024 7:57 AM EST 06/06/2024 8:03 AM EST Melida Valdes MD POINT OF CARE TEST O NIKA Performing Organization Address City/[facility]/ZIP Co de Phone Number [facility] [place] [address] * POC, GLUCOSE (06/06/2024 6:53 AM EST) Glucometer, POC 187 65 - 199 mg/dL 06/06/2024 6:53 AM EST [facility] Comment:Supplemental ranges: <140 mg/dL before meals <180 mg/dL all other times of the day. Blood CAPILLARY BLOOD / Unknown 06/06/2024 6:53 AM EST 06/06/2024 6:54 AM EST Melida Valdes MD POINT OF CARE TEST O RDERABLES Performing Organization Address [facility] Co de Phone Number [facility] [place] [address] * (ABNORMAL) Hemoglobin A1c (06/06/2024 3:33 AM EST) [facility] Hemoglobin A1c 7.1(H) 4.3 - [...] red blood cell turnover may not be commissary representative of glycemic control. Reference Interval: 4.3 - 5.6% 5.7 - 6.4%: Consistent with prediabetes >=6.5%: Consistent with diagnosis of diabetes mellitus Estimated Average Glucose 157 mg/dL 06/06/2024 1:01 PM EST [facility] Blood VENOUS BLOOD SPECIMEN / Unknown Venipuncture / Unknown 06/06/2024 3:33 AM EST 06/06/2024 3:48 AM EST Alejandra Baumann APRN CHEMISTRY ORDERAB LES Performing Organization Address [facility] Co de Phone Number [facility] [place] [address] * Heparin (unfractionated) Level (06/06/2024 3:33 AM [...] MD HEMATOLOGY ORDERABLE S Performing Organization Address City/State/[facility] Co de Phone Number [facility] [place] [address] * (ABNORMAL) CBC (with Diff) (06/06/2024 3:33 AM EST) Pathologist [facility] White Blood Cell 9.81(H) 4.00 - 9.50 x10(3)/mc L 06/06/2024 3:54 AM EST [facility] Red Blood Cell 4.91 4.58 - 5.54 x10(6)/mc L 06/06/2024 3:54 AM EST [facility] Hemoglobin 14.6 13.7 - 16.5 g/dL 06/06/2024 3:54 AM EST [facility] Hematocrit 45.4 40.5 - 48.5 % 06/06/2024 3:54 AM EST [facility] Mean Cell Volume 92.5 82.9 [...] % 3.0 % 06/06/2024 3:54 AM EST [facility] Eos Absolute 0.29 0.00 - 0.40 x10(3)/mc L 06/06/2024 3:54 AM [facility] Basophil % 0.9 % 06/06/2024 3:54 AM [facility] Baso Absolute 0.09 0.00 - 0.10 x10(3)/mc L 06/06/2024 3:54 AM EST [facility] Immature [...] HEMATOLOGY ORDERABLE S [facility] [place] [address] * Magnesium (06/06/2024 3:33 AM EST) Magnesium 0.92 0.69 - 1.07 mMol/L 06/06/2024 4:17 AM [facility] Blood VENOUS BLOOD SPECIMEN / Unknown Venipuncture / Unknown 06/06/2024 3:33 AM EST 06/06/2024 3:47 AM EST Shahnaz Scanlon MD CHEMISTRY ORDERABLES [facility] [place] [address] * (ABNORMAL) Basic Metabolic Panel (06/06/2024 3:33 [...] AM EST 06/06/2024 3:47 AM EST Shahnaz Sacnlon MD CHEMISTRY ORDERABLES [facility] [place] [address] * (ABNORMAL) POC, GLUCOSE (06/05/2024 10:31 PM EDT) Glucometer, POC 238(H) 65 - 199 mg/dL 06/05/2024 10:31 PM EDT [facility] Comment:Supplemental ranges: <140 mg/dL before meals <180 mg/dL all other times of the day. Blood CAPILLARY BLOOD / Unknown 06/05/2024 10:31 PM EDT 06/05/2024 10:31 PM EDT Melida Valdes MD POINT OF CARE TEST O RDERABLES Performing Organization Address City/[facility]/ZIP Co de Phone Number [facility] [place] [address] * (ABNORMAL) POC, GLUCOSE (06/05/2024 4:22 PM EDT) Glucometer, POC 205(H) 65 - 199 mg/dL 06/05/2024 4:22 PM EDT [facility] Comment:Supplemental ranges: <140 mg/dL before meals <180 mg/dL all other times of the day. Blood CAPILLARY BLOOD / Unknown 06/05/2024 4:22 PM EDT 06/05/2024 4:23 PM EDT Melida Valdes MD POINT OF CARE TEST O RDERABLES [facility] [place] [address] * (ABNORMAL) POC, GLUCOSE (06/05/2024 11:34 AM EDT) Glucometer, POC 211(H) 65 - 199 mg/dL 06/05/2024 11:34 AM EDT [facility] Comment:Supplemental ranges: <140 mg/dL before meals <180 mg/dL all other times of the day. Blood CAPILLARY BLOOD / Unknown 06/05/2024 11:34 AM EDT 06/05/2024 11:34 AM EDT Melida Valdes MD POINT OF CARE TEST O RDERABLES Performing Organization Address City/[facility]/ZIP Co de Phone Number [facility] [place] [address] * Potassium (06/05/2024 9:04 AM EDT) Potassium 4.3 3.5 - 5.0 mMol/L 06/05/2024 9:50 AM EDT [facility] Blood VENOUS BLOOD SPECIMEN / Unknown Venipuncture / Unknown 06/05/2024 9:04 AM EDT 06/05/2024 9:21 AM EDT Shahnaz Scanlon MD CHEMISTRY ORDERABLES Performing Organization Address [facility] Co de Phone Number [facility] [place] [address] * POC, GLUCOSE (06/05/2024 7:27 AM EDT) Glucometer, POC 166 65 - 199 mg/dL 06/05/2024 7:27 AM EDT [facility] Comment:Supplemental ranges: <140 mg/dL before meals <180 mg/dL all other times of the day. Blood CAPILLARY BLOOD / Unknown 06/05/2024 7:27 AM EDT 06/05/2024 7:27 AM EDT Melida Valdes MD POINT OF CARE TEST O RDERAPIETER Performing Organization Address [facility]/ZIP Co de Phone Number [facility] [place] [address] * Heparin (unfractionated) Level (06/05/2024 3:44 AM [...] HEMATOLOGY ORDERABLE S [facility] [place] [id number] * (ABNORMAL) CBC (with Diff) (06/05/2024 3:44 [...] - 48.5 % 06/05/2024 3:56 AM EDT [facility] Mean Cell Volume 92.3 82.9 - 93.1 fL 06/05/2024 3:56 AM EDT [facility] Mean Cell Hemoglobin 30.2 27.5 - 32.1 pg 06/05/2024 3:56 AM [facility] Mean Cell Hemoglobin Concentration 32.7 32.0 - 35.7 g/dL 06/05/2024 3:56 AM [facility] Platelet 219 145 - 357 x10(3)/mc L 06/05/2024 3:56 AM [facility] Mean Platelet Volume 9.4 7.6 - 12.9 fL 06/05/2024 3:56 AM [facility] RDW Standard Deviation 46.7(H) 36.0 - 45.0 fL 06/05/2024 3:56 AM [facility] RDW coefficient of variation 13.9(H) 11.4 - 13.8 % 06/05/2024 3:56 AM [facility] NRBC% auto 0.0 % 06/05/2024 3:56 AM [facility] NRBC Absolute <0.01 <0.01 x10(3)/mc L 06/05/2024 3:56 AM [facility] Neutrophil % 61.5 % 06/05/2024 3:56 AM [facility] Neutrophil Absolute (ANC) - Automated 6.65(H) 1.70 - 6.10 x10(3)/mc L 06/05/2024 3:56 AM [facility] Lymph % 24.0 % 06/05/2024 3:56 AM [facility] Lymph Absolute 2.60 0.90 - 3.20 x10(3)/mc L 06/05/2024 3:56 AM [facility] Monocyte % 10.9 % 06/05/2024 3:56 AM [facility] Monocyte Absolute 1.18(H) 0.30 - 0.90 x10(3)/mc L 06/05/2024 3:56 AM [facility] Eos % 2.2 % [...] HEMATOLOGY ORDERABLE S [facility] [place] [address] * Magnesium (06/05/2024 3:44 AM EDT) Magnesium 0.92 0.69 - 1.07 mMol/L 06/05/2024 4:20 AM EDT [facility] Blood VENOUS BLOOD SPECIMEN / Unknown Venipuncture / Unknown 06/05/2024 3:44 AM EDT 06/05/2024 3:50 AM EDT Shahnaz Scanlon MD CHEMISTRY ORDERABLES [facility] [place] [address] * (ABNORMAL) Basic Metabolic Panel (06/05/2024 3:44 AM EDT) Glucose 155 65 - 199 mg/dL 06/05/2024 4:20 AM [facility] Comment:Glucose Concentratio n >=200 mg/dL plus symptoms is consistent with Diabetes Mellitus. Blood Urea Nitrogen 25(H) 10 - 20 mg/dL 06/05/2024 4:20 AM [facility] Creatinine 1.16 0.80 - 1.50 mg/dL 06/05/2024 4:20 AM [facility] Sodium 136 135 - 145 mMol/L 06/05/2024 4:20 AM [facility] Potassium 3.9 3.5 - 5.0 mMol/L 06/05/2024 4:20 AM [facility] Chloride 95(L) 98 - 107 mMol/L 06/05/2024 4:20 AM [facility] Carbon Dioxide 29 22 - 31 mMol/L 06/05/2024 4:20 AM [facility] Anion Gap 12 5 - 15 mMol/L 06/05/2024 4:20 AM [facility] Calcium 9.2 8.5 - 10.5 mg/dL 06/05/2024 4:20 AM [facility] Est Glomerular Filtration Rate - Male 69 mL/min/1. 73 m?? 06/05/2024 4:20 AM [facility] Comment: This patient's estimated [...] Scanlon MD CHEMISTRY ORDERABLES Performing Organization Address City/[facility]/ZIP Co de Phone Number [facility] [place] [address] * Potassium (06/04/2024 10:34 PM EDT) Potassium 3.7 3.5 - 5.0 mMol/L 06/04/2024 11:03 PM EDT [facility] Blood VENOUS BLOOD SPECIMEN / Unknown Venipuncture / Unknown 06/04/2024 10:34 PM EDT 06/04/2024 10:39 PM EDT Shahnaz Scanlon MD CHEMISTRY ORDERABLES Performing Organization Address [facility] Co de Phone Number [facility] [place] [address] * POC, GLUCOSE (06/04/2024 7:43 PM EDT) Glucometer, POC 175 65 - 199 mg/dL 06/04/2024 7:43 PM EDT [facility] Comment:Supplemental ranges: <140 mg/dL before meals <180 mg/dL all other times of the day. Blood CAPILLARY BLOOD / Unknown 06/04/2024 7:43 PM EDT 06/04/2024 7:43 PM EDT Melida Valdes MD POINT OF CARE TEST O RDERABLES Performing Organization Address City/[facility]/ZIP Co de Phone Number [facility] [place] [address] * Potassium (06/04/2024 4:35 PM EDT) Potassium 4.0 3.5 - 5.0 mMol/L 06/04/2024 5:32 PM EDT [facility] Blood VENOUS BLOOD SPECIMEN / Unknown Venipuncture / Unknown 06/04/2024 4:35 PM EDT 06/04/2024 4:40 PM EDT Shahnaz Scanlon MD CHEMISTRY ORDERABLES Performing Organization Address City/[facility]/ZIP Co de Phone Number [facility] [place] [address] * POC, GLUCOSE (06/04/2024 3:26 PM EDT) Glucometer, POC 154 65 - 199 mg/dL 06/04/2024 3:26 PM EDT [facility] Comment:Supplemental ranges: <140 mg/dL before meals <180 mg/dL all other times of the day. Blood CAPILLARY BLOOD / Unknown 06/04/2024 3:26 PM EDT 06/04/2024 3:27 PM EDT Meliad Valdes MD POINT OF CARE TEST O RDERABLES Performing Organization Address [facility] Co de Phone Number [facility] [place] [address] * POC, GLUCOSE (06/04/2024 11:09 AM EDT) [facility] Signature Glucometer, POC 188 65 - 199 mg/dL 06/04/2024 11:09 AM EDT [facility] Comment:Supplemental ranges: <140 mg/dL before meals <180 mg/dL all other times of the day. Blood CAPILLARY BLOOD / Unknown 06/04/2024 11:09 AM EDT 06/04/2024 11:09 AM EDT Delroy Fofana MD POINT OF CARE TEST ORDERABLES Performing Organization Address City/[facility]/ZIP Co de Phone Number [facility] [place] [address] * Heparin (unfractionated) Level (06/04/2024 10:41 AM [...] MD HEMATOLOGY ORDERABLE S Performing Organization Address City/[facility]/ZIP Co de Phone Number [facility] [place] [address] * Potassium (06/04/2024 10:41 AM EDT) Potassium 4.0 3.5 - 5.0 mMol/L 06/04/2024 11:11 AM EDT [facility] Blood VENOUS BLOOD SPECIMEN / Unknown Venipuncture / Unknown 06/04/2024 10:41 AM EDT 06/04/2024 10:46 AM EDT Shahnaz Scanlon MD CHEMISTRY ORDERABLES Performing Organization Address City/[facility]/ZIP Co de Phone Number [facility] [place] [address] * POC, GLUCOSE (06/04/2024 7:11 AM EDT) Glucometer, POC 182 65 - 199 mg/dL 06/04/2024 7:12 AM EDT [facility] Comment:Supplemental ranges: <140 mg/dL before meals <180 mg/dL all other times of the day. Blood CAPILLARY BLOOD / Unknown 06/04/2024 7:11 AM EDT 06/04/2024 7:12 AM EDT Delroy Fofana MD POINT OF CARE TEST ORDERABLES Performing Organization Address [facility] Co de Phone Number [facility] [place] [address] * Heparin (unfractionated) Level (06/04/2024 4:38 AM [...] MD HEMATOLOGY ORDERABLE S Performing Organization Address City/[facility]/ZIP Co de Phone Number [facility] [place] [address] * (ABNORMAL) CBC (with Diff) (06/04/2024 4:38 AM EDT) White Blood Cell 11.45(H) 4.00 - 9.50 x10(3)/mc L 06/04/2024 5:12 AM EDT [facility] Red Blood Cell 5.35 4.58 - 5.54 x10(6)/mc L 06/04/2024 5:12 AM [facility] Hemoglobin 16.0 13.7 - 16.5 g/dL 06/04/2024 5:12 AM [facility] Hematocrit 49.6(H) 40.5 - 48.5 % 06/04/2024 5:12 AM [facility] Mean Cell Volume 92.7 82.9 - 93.1 fL 06/04/2024 5:12 AM [facility] Mean Cell Hemoglobin 29.9 27.5 - 32.1 pg 06/04/2024 5:12 AM [facility] Mean Cell Hemoglobin Concentration 32.3 32.0 - 35.7 g/dL 06/04/2024 5:12 AM [facility] Platelet 222 145 - 357 x10(3)/mc L 06/04/2024 5:12 AM [facility] Mean Platelet Volume 9.5 7.6 - 12.9 fL 06/04/2024 5:12 AM [facility] RDW Standard Deviation 47.6(H) 36.0 - 45.0 fL 06/04/2024 5:12 AM [facility] RDW coefficient of variation 14.1(H) 11.4 - 13.8 % 06/04/2024 5:12 AM [facility] NRBC% auto 0.0 % 06/04/2024 5:12 AM [facility] NRBC Absolute <0.01 <0.01 x10(3)/mc L 06/04/2024 5:12 AM [facility] Neutrophil % 60.3 % 06/04/2024 5:12 AM [facility] Neutrophil Absolute (ANC) - Automated 6.91(H) 1.70 - 6.10 x10(3)/mc L 06/04/2024 5:12 AM [facility] Lymph % 25.1 % [...] HEMATOLOGY ORDERABLE S [facility] [place] [address] * Magnesium (06/04/2024 4:38 AM EDT) Magnesium 0.84 0.69 - 1.07 mMol/L 06/04/2024 5:35 AM EDT [facility] Blood VENOUS BLOOD SPECIMEN / Unknown Venipuncture / Unknown 06/04/2024 4:38 AM EDT 06/04/2024 5:07 AM EDT Shahnaz Scanlon MD CHEMISTRY ORDERABLES [facility] [place] [address] * (ABNORMAL) Basic Metabolic Panel (06/04/2024 4:38 AM EDT) Glucose 118 65 - 199 mg/dL 06/04/2024 5:35 AM EDT [facility] Comment:Glucose Concentratio n >=200 mg/dL plus symptoms is consistent with Diabetes Mellitus. Blood Urea Nitrogen 22(H) 10 - 20 mg/dL 06/04/2024 5:35 AM EDT [facility] Creatinine 1.22 0.80 - 1.50 mg/dL 06/04/2024 5:35 AM T [facility] Sodium 137 135 - 145 mMol/L 06/04/2024 5:35 AM [facility] Potassium 3.6 3.5 - 5.0 mMol/L 06/04/2024 5:35 AM [facility] Chloride 97(L) 98 - 107 mMol/L 06/04/2024 5:35 AM [facility] Carbon Dioxide 29 22 - 31 mMol/L 06/04/2024 5:[facility] Anion Gap 11 5 - 15 mMol/L 06/04/2024 5:35 AM [facility] Calcium 9.0 8.5 - 10.5 mg/dL 06/04/2024 5:35 [facility] Est Glomerular Filtration Rate - Male 65 mL/min/1. 73 m?? 06/04/2024 5:35 AM [facility] Comment: This patient's estimated [...] MD CHEMISTRY ORDERABLES [facility] [place] [address] * Heparin (unfractionated) Level (06/03/2024 8:58 PM [...] MD HEMATOLOGY ORDERABLE S Performing Organization Address [facility] Co de Phone Number [facility] [place] [address] * POC, GLUCOSE (06/03/2024 8:05 PM EDT) Glucometer, POC 136 65 - 199 mg/dL 06/03/2024 8:05 PM EDT [facility] Comment:Supplemental ranges: <140 mg/dL before meals <180 mg/dL all other times of the day. Blood CAPILLARY BLOOD / Unknown 06/03/2024 8:05 PM EDT 06/03/2024 8:05 PM EDT Delroy Fofana MD POINT OF CARE TEST ORDERABLES Performing Organization Address [facility] Co de Phone Number [facility] [place] [address] * POC, GLUCOSE (06/03/2024 5:48 PM EDT) Glucometer, POC 191 65 - 199 mg/dL 06/03/2024 5:48 PM EDT [facility] Comment:Supplemental ranges: <140 mg/dL before meals <180 mg/dL all other times of the day. Blood CAPILLARY BLOOD / Unknown 06/03/2024 5:48 PM EDT 06/03/2024 5:49 PM EDT Delroy Fofana MD POINT OF CARE TEST ORDERABLES Performing Organization Address [facility] Co de Phone Number [facility] [place] [address] * CT Chest wo Contrast (Generic) (06/03/2024 4:33 PM EDT) WORKSTATION ID [id number] RAD Anatomical Region Laterality Modality Chest Computed Tomogra phy Impressions 06/03/2024 4:47 PM EDT Cardiomegaly. Biventricular ICD leads in place. Thank you for letting us participate in the care of this patient. ??If you are a health care provider and have any questions regarding this report, please contact the number below. ??For patients who have questions please contact the health hearing healthcare practitioner that requested your imaging first. ? Electronically signed by: Stuart Aponte MD, [facility] ??([phone]), at 06/03/2024 4:47 PM Narrative 06/03/2024 4:47 [...] patients who have questions please contactthe health hearing healthcare practitioner that requested your imaging first. Electronically signed by: Stuart Aponte MD, [facility]([phone]), at 06/03/2024 4:47 PM Bobby Loja MD IMG CT ORDERABLES * Carotid Duplex, Bilateral (06/03/2024 2:19 PM EDT) VB Text Report Department: Vascular Surgery Lab Patient: [id number] (GEORGE MEHTA) CPT: 20226 Referring Physician: BOBBY LOJA ?? Phone: Indications: [...] Loja MD VASCULAR ORDERABLES Performing Organization Address [facility] de Phone Number [id number] * Heparin (unfractionated) [...] MD HEMATOLOGY ORDERABLE S Performing Organization Address [facility] Co de Phone Number [facility] [place] [address] * POC, GLUCOSE (06/03/2024 11:14 AM EDT) Glucometer, POC 166 65 - 199 mg/dL 06/03/2024 11:14 AM EDT [facility] Comment:Supplemental ranges: <140 mg/dL before meals <180 mg/dL all other times of the day. Blood CAPILLARY BLOOD / Unknown 06/03/2024 11:14 AM EDT 06/03/2024 11:14 AM EDT Delroy Fofana MD POINT OF CARE TEST ORDERABLES [facility] [place] [address] * (ABNORMAL) Troponin-T, High Sensitivity 3 Hour [...] troponin value can be found in the [facility] Test Catalog Troponin - https://[facility]-.testcatalog.org/catalogs/565/files/77591 Reference: Fourth [place] Definition of Myocardial Infarction. Journal of the [place] [employer] 2018;72:3046-5500 Troponin-T, HS 3 hr delta 06/03/2024 10:50 AM EDT [facility] Comment:Delta troponin value not calculated, sample collected outside of delta calculation time limit. Blood VENOUS BLOOD SPECIMEN / Unknown IP Care Team Draw / Unknown 06/03/2024 10:06 AM EDT 06/03/2024 10:15 AM EDT Delroy Fofana MD CHEMISTRY ORDERABLE S [facility] [place] [address] * ECHO COMPLETE W CONTRAST (06/03/2024 8:46 AM EDT) Anatomical Region Laterality Modality Cardiac Other 06/03/2024 6:52 AM EDT Narrative 06/03/2024 10:32 AM EDT [address] [place] [address] ? Echocardiogram Report Name: GEORGE MEHTA Raad ?Study Date: 06/03/2024 06:52 AM : 1955 ? Height: 168 cm ? Account: [id number] Age: 69 yrs ? Weight: 102 kg Gender: Male ?BSA: 2.1 m2 Ordering Physician: SHAHNAZ SCANLON Referring Physician: NEHAL QUINTERO Performed By: Sara Kebede RDCS Reason For Study: STEMI Exam Location: [facility]. Interpretation Summary -Left ventricular [...] fellow performed study of today's date). Procedure Complete-[id number]. Image enhancement Optison was used for left [...] Note Jonnie Jordan MD - 06/03/2024 [address] [place] [address] Echocardiogram Report Name: GEORGE MEHTA Study Date: 406:52 AM : 1955 Height: 168 cm Account: [id number] Age: 69 yrs Weight: 102 kg Gender: Male BSA: 2.1 m2 Ordering Physician: SHAHNAZ SCANLON Referring Physician: NEHAL QUINTERO Performed By: Sara Kebede RDCS Reason For Study: STEMI Exam Location: [facility]. Interpretation Summary -Left ventricular [...] available (other than a fellow performed study 's date). Procedure Complete-[id number]. Image enhancement Optison was used for left [...] troponin value can be found in the [facility] Test Catalog Troponin - [email or web address].[email or web address]/catalogs/565/files/69474 Reference: Fourth [place] Definition of Myocardial Infarction. Journal of the [place] [employer] 2018;72:6422-7185 Troponin-T, HS 1 hr delta 5 ng/L [...] CHEMISTRY ORDERABLE S [facility] [place] [address] * POC, GLUCOSE (06/03/2024 7:54 AM EDT) [facility] Signature Glucometer, POC 195 65 - 199 mg/dL 06/03/2024 7:55 AM EDT [facility] Comment:Supplemental ranges: <140 mg/dL before meals <180 mg/dL all other times of the day. Blood CAPILLARY BLOOD / Unknown 06/03/2024 7:54 AM EDT 06/03/2024 7:55 AM EDT Nuha Rojo MD POINT OF CARE TEST ORDERABLES [facility] [place] [address] * (ABNORMAL) Troponin-T, High Sensitivity (06/03/2024 7:39 [...] troponin value can be found in the [facility] Test Catalog Troponin - https://[facility]-.testcatalog.org/catalogs/565/files/34973 Reference: Fourth [place] Definition of Myocardial Infarction. Journal of the [place] [employer]iology 2018;72:4281-6883 Blood VENOUS BLOOD SPECIMEN / Unknown IP Care Team Draw / Unknown 06/03/2024 7:39 AM EDT 06/03/2024 7:48 AM EDT Delroy Fofana MD CHEMISTRY ORDERABLE S [facility] [place] [address] * (ABNORMAL) Troponin-T, High Sensitivity 3 Hour [...] troponin value can be found in the [facility] Test Catalog Troponin - https://[facility]-.testcatalog.org/catalogs/565/files/33628 Reference: Fourth [place] Definition of Myocardial Infarction. Journal of the [place] [employer] 2018;72:9769-3788 Troponin-T, HS 3 hr delta 46 ng/L [...] MD CHEMISTRY ORDERABLES [facility] [place] [address] * (ABNORMAL) Troponin-T, High Sensitivity 1 Hour [...] troponin value can be found in the [facility] Test Catalog Troponin - https://[email or web address].org/catalogs/565/files/66109 Reference: Fourth [place] Definition of Myocardial Infarction. Journal of the [place] [employer] 2018;72:0605-7738 Troponin-T, HS 1 hr delta 10 ng/L [...] CHEMISTRY ORDERABLES [facility] [place] [address] * XR Chest One View (06/03/2024 2:41 AM EDT) WORKSTATION ID [id number] RAD Anatomical Region Laterality Modality Chest N/A Digital Radiogra phy Impressions 06/03/2024 3:06 AM EDT No radiographically evident acute cardiopulmonary process. Thank you for letting us participate in the care of this patient. ??If you are a health care provider and have any questions regarding this report, please contact the number below. ??For patients who have questions please contact the health hearing healthcare practitioner that requested your imaging first. ? Electronically signed by: Corazon Mauro MD, [facility] ([phone]), at 06/03/2024 3:06 AM Narrative 06/03/2024 3:06 [...] patients who have questions please contactthe health hearing healthcare practitioner that requested your imaging first. Electronically signed by: Corazon Mauro MD, [facility]([phone]), at 06/03/2024 3:06 AM Shahnaz Scanlon MD [...] HEMATOLOGY ORDERABLE S [facility] [place] [address] * (ABNORMAL) Troponin-T, High Sensitivity (06/03/2024 2:13 [...] troponin value can be found in the [facility] Test Catalog Troponin - https://[facility]-.testcatalog.org/catalogs/565/files/05184 Reference: Fourth [place] Definition of Myocardial Infarction. Journal of the [place] [employer]iology 2018;72:6940-2219 Blood VENOUS BLOOD SPECIMEN / Unknown IP Care Team Draw / Unknown 06/03/2024 2:13 AM EDT 06/03/2024 2:32 AM EDT Shahnaz Scanlon MD CHEMISTRY ORDERABLES [facility] [place] [address] * Magnesium (06/03/2024 2:13 AM EDT) Pathologist [facility] Magnesium 0.86 0.69 - 1.07 mMol/L 06/03/2024 3:02 [facility] Blood VENOUS BLOOD SPECIMEN / Unknown IP Care Team Draw / Unknown 06/03/2024 2:13 AM EDT 06/03/2024 2:32 AM EDT Shahnaz Scanlon MD CHEMISTRY ORDERABLES [facility] [place] [address] * Basic Metabolic Panel (06/03/2024 2:13 AM EDT) Glucose 126 65 - 199 mg/dL 06/03/2024 3:02 AM [facility] Comment:Glucose Concentratio n >=200 mg/dL plus symptoms is consistent with Diabetes Mellitus. Blood Urea Nitrogen 20 10 - 20 mg/dL 06/03/2024 3:02 AM [facility] Creatinine 1.13 0.80 - 1.50 mg/dL 06/03/2024 3:02 AM [facility] Sodium 139 135 - 145 mMol/L 06/03/2024 3:02 AM [facility] Potassium 4.2 3.5 - 5.0 mMol/L 06/03/2024 3:02 AM [facility] Chloride 101 98 - 107 mMol/L 06/03/2024 3:02 AM [facility] Carbon Dioxide 26 22 - 31 mMol/L 06/03/2024 3:02 AM [facility] Anion Gap 12 5 - 15 mMol/L 06/03/2024 3:02 AM [facility] Calcium 9.8 8.5 - 10.5 mg/dL 06/03/2024 3:02 AM [facility] Est Glomerular Filtration Rate - Male 71 mL/min/1. 73 m?? 06/03/2024 3:02 AM [facility] Comment: This patient's estimated [...] MD CHEMISTRY ORDERABLES [facility] [place] [address] * (ABNORMAL) CBC (with Diff) (06/03/2024 2:13 [...] - 32.1 pg 06/03/2024 2:37 AM EDT [facility] Mean Cell Hemoglobin Concentration 31.6(L) 32.0 - 35.7 g/dL 06/03/2024 2:37 AM [facility] Platelet 217 145 - 357 x10(3)/mc L 06/03/2024 2:37 AM [facility] Mean Platelet Volume 9.5 7.6 - 12.9 fL 06/03/2024 2:37 AM [facility] RDW Standard Deviation 49.0(H) 36.0 - 45.0 fL 06/03/2024 2:37 AM [facility] RDW coefficient of variation 14.1(H) 11.4 - 13.8 % 06/03/2024 2:37 AM [facility] NRBC% auto 0.0 % 06/03/2024 2:37 AM [facility] NRBC Absolute <0.01 <0.01 x10(3)/mc L 06/03/2024 2:37 AM [facility] Neutrophil % 58.4 % 06/03/2024 2:37 AM [facility] Neutrophil Absolute (ANC) - Automated 6.51(H) 1.70 - 6.10 x10(3)/mc L 06/03/2024 2:37 AM [facility] Lymph % 29.9 % 06/03/2024 2:37 AM [facility] Lymph Absolute 3.34(H) 0.90 - 3.20 x10(3)/mc L 06/03/2024 2:37 AM [facility] Monocyte % 8.1 % 06/03/2024 2:37 AM [facility] Monocyte Absolute 0.90 0.30 - 0.90 x10(3)/mc L 06/03/2024 2:37 AM [facility] Eos % 2.4 % 06/03/2024 2:37 AM [facility] Eos Absolute 0.27 0.00 - 0.40 x10(3)/mc L 06/03/2024 2:37 AM [facility] Basophil % 0.8 % [...] HEMATOLOGY ORDERABLE S [facility] [place] [address] * Lipid Panel (Reflex Direct LDL) (06/03/2024 2:13 AM EDT) Cholesterol, Total 76 mg/dL 06/03/2024 3:02 AM [facility] Comment: Desirable: < 200 mg/dL Borderline High: 200 - 239 mg/dL High: > or = 240 mg/dL Triglyceride 75 mg/dL 06/03/2024 3:02 AM [facility] Comment: Normal: <150 mg/dL Borderline High: 150-199 mg/dL High: 200-499 mg/dL Very High: > or =500 mg/dL HDL Cholesterol 39 mg/dL 3:02 AM [facility] Comment:Males: High Risk: <4 0 mg/dL LDL Cholesterol 21 mg/dL 3:02 AM [facility] Comment: Desirable: <100 mg/dL [...] 2:13 AM EDT 06/03/2024 2:32 AM EDT [facility] - 06/03/2024 3:02 AM [...] ACC/AHA Guidelines (most recently Bruce et al. [facility] 05/07/22): * For individuals with atherosclerotic [...] Scanlon MD CHEMISTRY ORDERABLES Performing Organization Address [facility] Co de Phone Number [facility] [place] [address] * (ABNORMAL) APTT (06/03/2024 2:13 AM EDT) [...] MD HEMATOLOGY ORDERABLE S Performing Organization Address [facility] Co de Phone Number [facility] [place] [address] * Prothrombin Time (06/03/2024 2:13 AM EDT) [...] HEMATOLOGY ORDERABLE S [facility] [place] [address] * Hepatic Function Panel (06/03/2024 2:13 AM EDT) Albumin 3.8 3.2 - 5.2 g/dL 06/03/2024 3:02 AM EDT [facility] Aspartate Aminotransferase 20 <=39 unit/L 06/03/2024 3:02 AM EDT [facility] Alanine Aminotransferase 12 0 - 55 unit/L 06/03/2024 3:02 AM T [facility] Alkaline Phosphatase 76 [...] Scanlon MD CHEMISTRY ORDERABLES Performing Organization Address [facility] Co de Phone Number [facility] [place] [address] * (ABNORMAL) pro-Brain Natriuretic Peptide (06/03/2024 2:13 AM EDT) NT-proBNP 1,628(H) <=124 pg/mL 06/03/2024 4:15 AM EDT [facility] Blood VENOUS BLOOD SPECIMEN / Unknown IP Care Team Draw / Unknown 06/03/2024 2:13 AM EDT 06/03/2024 2:32 AM EDT Shahnaz Scanlon MD CHEMISTRY ORDERABLES Performing Organization Address [facility] Co de Phone Number [facility] [place] [address] * Phosphorus (06/03/2024 2:13 AM EDT) Pathologist [facility] Phosphorus 4.4 2.5 - 4.5 mg/dL 06/03/2024 3:02 AM EDT [facility] Blood VENOUS BLOOD SPECIMEN / Unknown IP Care Team Draw / Unknown 06/03/2024 2:13 AM EDT 06/03/2024 2:32 AM EDT Shahnaz Scanlon MD CHEMISTRY ORDERABLES Performing Organization Address [facility] Co de Phone Number [facility] [place] [address] * EKG 12 Lead (06/03/2024 1:45 AM EDT) Ventricular rate 63 BPM MUSE SYSTEM Atrial Rate 63 BPM MUSE SYSTEM P-R Interval 168 ms MUSE SYSTEM QRS Duration 96 ms MUSE SYSTEM Q-T Interval 400 ms MUSE SYSTEM QTC Calculated (Bezet) 409 ms MUSE SYSTEM Calculated P [place] 65 degrees MUSE SYSTEM Calculated R [place] 70 degrees MUSE SYSTEM Calculated T [place] -86 degrees MUSE SYSTEM INTERPRETATION Atrial-sensed ventricular-paced rhythm Abnormal ECG No previous ECGs available I personally reviewed the tracing and edited the fellows interpretation Confirmed by fellow Sunni Agudelo ([id number]) on 06/04/2024 3:55:40 PM Confirmed by MD Tamia, Stuart Perry ([id number]) on 06/05/2024 11:46:48 AM MUSE SYSTEM 06/03/2024 1:45 AM EDT 06/05/2024 11:46 AM EDT Shahnaz Scanlon MD ECG ORDERABLES MUSE SYSTEM * CARDIAC CATHETERIZATION (06/03/2024 12:42 AM EDT) Anatomical Region Laterality Modality Other Narrative 06/04/2024 2:22 PM EDT ?[facility] ? Cardiac Catheterization/Intervention Report ? Patient Name: Tyson, George L. ? Procedure Date: 06/02/2024 ? A #: [id number] ? Primary Physician: Nuha Shen I ? Case #: [id number] ? File Name: [id number] ? Catheterization Order Number: [id number] ? [facility] ? Final Report [place], [place] ? Patient Name: ? George L. Tyson ? ID#: ?[id number] ? : ?1955 ? Procedure Date: ? June 02, 2024 ? Case #: ? [id number] ? Room: ? 5 ? Case Physician: [...] was designated as ASA Class IV. The [facility] clinical frailty ?scale is 5: Mildly Frail. ? Diagnostic Tests: ?Electrocardiography: ? EKG was assessed by ECG. EKG was Abnormal. EKG showed ST Deviation ? >= 0.5 mm. ?Medications Prior to Procedure: ? Sacubitril and Valsartan, Aspirin, Beta Erik, Statin and ? Thrombolytic (any). ? Indications for Diagnostic Cath: ?The priority of the diagnostic procedure was Emergent. The indication for ?the manager lab visit is ACS less than or equal [...] ?3.5 guiding catheter and a 3.5 Fr [employer] [place] [employer] [place] 20 Mhz using Manual ?pullback. ??Imaging was [...] 3.5 guiding catheter and a 3.5 Fr [employer] [place] [employer] [place] 20 Mhz using ?Manual pullback. ??Imaging was [...] and IVUS # coronary. ? Nuha Shen M.Caprice. ? Electronically Signed by: Nuha Shen M.D. ? Report Finalized: 06/04/2024 ??14:16 ? Report Last Ammended: 07/20/2024 ??15:36 ? Procedure Note Nuha Shen MD - 07/20/2024 [facility] Cardiac Catheterization/Intervention Report Patient Name: George Mehta Procedure Date: 06/02/2024 A #: [id number] Primary Physician: Nuha Shen I Case #: [id number] File Name: [id number] Catheterization Order Number: [id number] [facility] FinalReport [place], [place] Patient Name: George Mehta ID#:[id number] :1955 Procedure Date: June 02, 2024 Case [...] was designated as ASA Class IV. The [facility] clinicalfrailty scale is 5: Mildly Frail. Diagnostic Tests: Electrocardiography: EKG was assessed by ECG. EKG was Abnormal. EKG showed STDeviation >= 0.5 mm. Medications Prior to Procedure: Sacubitril and Valsartan, Aspirin, Beta Erik, Statin and Thrombolytic (any). Indications for Diagnostic Cath: The priority of the diagnostic procedure was Emergent. Theindication for the manager lab visit is ACS less than or equal [...] units of heparin were administered. A total il842ns of Omnipaque were opened, 84cc of Omnipaque were administered pcs26pn of Omnipaque were wasted. Radiation: Fluoro time [...] 3.5 guiding catheter and a 3.5 Fr [employer] [place] [employer] [place] 20 Mhz usingManual pullback. Imaging was successful. [...] 3.5 guiding catheter and a 3.5 Fr [employer] [place] 20 Mhzusing Manual pullback. Imaging was successful. Indication: IVUS performed for pre intervention planning. Findings Pre-Intervention: scattered plaque, calcification and [id number] degrees calcification. Findings Post-Intervention: Stent not imaged [...] CARE TEST ORDERABLES [facility] [place] [address] documented in this encounter Visit Diagnoses Not [...] Miguelina 06/03/24 at 0130, Until Discontinued, Routine Given [...] PRN, Starting on Fri06/13/24 at 0928, Until 06/14/24 at 1437, Intra-Operative (Intra-Procedure), Routine Given 06/13/2024 [...] 2100, Last dose on Fri06/23/24 at 0900, Supervisor Cured Meats recommended duration is 3 days., Routine Given [...] 8:02 PM EST 2 tablets sodium chloride (Yoakum) 0.65 % nasal spray 1 spray 1 [...] RN) 818 (Patch Removed - Provider: Michelle Orozco, JAMIE)08 (Patch Applied - Provider: Michelle Orozco, JAMIE)2019 (Patch Removed - Provider: Christina Myers RN) 08 (Patch Applied - Provider: Shazia Mcdonald, JAMIE)130 (Due: Patch Removed - Provider: Automatic Discharge [...] 2100, Last dose on Fri06/23/24 at 0900, Supervisor C[employer] Meats recommended duration is 3 days., Routine 2043 [...] oral route first line., Routine sodium chloride (Yoakum) 0.65 % nasal spray 1 spray 1 [...] 6 hours upon arrival to Unit. Give MN if unable to take PO, Routine Group [...] Routine documented in this encounter Care Teams Warehouse Material Handler Relationship Specialty Start Date End Date Mauro Berumen MD [address] [place] [address] PCP - General Family Medicine 06/02/24 documented as of this encounter
--- OUTSIDE RECORDS SUMMARY | 2024-08-13 17:16 | XMS_ITS | Encounter Summary ---
Author Organization [facility] Address [facility] [place] [address] Care Team Providers Care Instrumentation Supervisor Name Role Phone Mauro Berumen MD Primary Care Provider [phone] Encounter Details Date Type Department Care Team (Late st Contact Info) Description 06/03/2024 Orders Only Cardiology [facility] [place] [address] Unknown None Social History Tobacco Use Types Packs/Day Years Used Date Smoking Tobacco: Every Day Cigarettes Smokeless Tobacco: Never [facility] Utilities Answer Date Recorded In the past 12 months has th e electric, gas, oil, or water [employer] threatened to shut off services in your [...] time in the past 12 m [facility], were you homeless or living in a fdc (including now)? No 06/03/2024 DH IPV Inpatient [...] Vascular Unit Level 3 [place] [phone] Jim Benites MD [facility] [place] [address] documented as of this encounter Procedures Procedure Name Priority Date/Time Associated Diagnosis Comments ECHOCARDIOGRAM TRANSTHORACIC Routine 06/03/2024 2:23 AM EDT documented in this encounter Results * Echocardiogram Transthoracic (06/03/2024 2:23 AM EDT) Anatomical Region Laterality Modality Cardiac Other 06/03/2024 2:23 AM EDT Narrative 06/03/2024 10:32 AM EDT [address] [place] [address] ? Echocardiogram Report Name: ARTURO NICHOLS ?Study Date: 06/03/2024 02:23 AM : 1955 Age: 69 yrs Gender: Male Performed By: Sascha Silva MD Reason For Study: STEMI Interpreting Fellow: Sascha Silva. Interpretation Summary Limited echo performed by fellow tombstone erector helper to assess LV function. Left ventricle is mild to moderately dilated. Left ventricular ejection fraction is estimated visually at 25%. There is global dyskinesia with mid-basilar posterior-posterolateral akinesis. Right ventricle is not well seen. RV systolic function is probably normal. There is no prior echo for comparison. Procedure Limited - 00691. Suboptimal quality. Ventricular paced. Left Ventricle Left [...] Note Jonnie Jordan MD - 06/03/2024 [address] [place] [address] Echocardiogram Report Name: ARTURO NICHOLS Study Date: 06/03/2024 02:23AM : 1955 Age: 69 yrs Gender: Male Performed By: Sascha Silva MD Reason For Study: STEMI Interpreting Fellow: Sascha Silva. Interpretation Summary Limited echo performed by fellow tombstone erector helper to assess LV function. Left ventricle is mild to moderately dilated. Left ventricular ejectionfraction is estimated visually at 25%. There is global dyskinesia withmid-basilar posterior-posterolateral akinesis. Right ventricle is not well seen. RV systolic function is probablynormal. There is no prior echo for comparison. Procedure Limited - 32514. Suboptimal quality. Ventricular paced. Left Ventricle Left [...] on filedocumented in this encounter Care Teams Instrumentation Supervisor Relationship Specialty Start Date End Date Mauro Berumen MD [address] [place] [address] PCP - General Family Medicine 06/02/24 documented as of this encounter
--- OUTSIDE RECORDS SUMMARY | 2024-08-13 17:16 | XMS_ITS | Encounter Summary ---
Author Organization [facility] Address [facility] [place] [address] Care Team Providers Care Dowel Pin Man Name Role Phone Mauro Berumen MD Primary Care Provider [phone] Encounter Details Date Type Department Care Team (Latest Contact Info) Description 06/03/2024 Travel Social History Tobacco Use Types Packs/Day Years Used Date Smoking Tobacco: Every Day Cigarettes Smokeless Tobacco: Never [facility] Utilities Answer Date Recorded In the [...] Vascular Unit Level 3 [place] [address] Jim Benites MD [facility] [place] [address] documented as of this encounter Visit Diagnoses Not on filedocumented in this encounter Care Teams Dowel Pin Man Relationship Specialty Start Date End Date Mauro Berumen MD [address] [place] [address] PCP - General Family Medicine 06/02/24 documented as of this encounter
--- OUTSIDE RECORDS SUMMARY | 2024-08-13 17:16 | XMS_ITS | Encounter Summary ---
Author Organization [facility] Address [facility] [place] [address] Care Team Providers Care Intelligence Analyst Name Role Phone Mauro Berumen MD Primary Care Provider [phone] Encounter Details Date Type Department Care Team (Late st Contact Info) Description 06/08/2024 Ophth [place] [address] Yumiko De La Torre, COT Social History Tobacco Use Types Packs/Day Years Used Date Smoking Tobacco: Every Day Cigarettes Smokeless Tobacco: Never [facility] Utilities Answer Date Recorded In the [...] Vascular Unit Level 3 [place] [address] Jim Benites MD [facility] [place] [address] documented as of this encounter Visit Diagnoses Not on filedocumented in this encounter Care Teams Intelligence Analyst Relationship Specialty Start Date End Date Mauro Berumen MD [address] [place] [address] PCP - General Family Medicine 06/02/24 documented as of this encounter
--- OUTSIDE RECORDS SUMMARY | 2024-08-13 17:18 | XMS_ITS | Encounter Summary ---
Author Organization [facility] Address [address] [place] [address] Care Team Providers Care Dyno Technician Name Role Phone Jesu [facility] Primary Care Provider [phone] Encounter Details Date Type Department Care Team (Late st Contact Info) Description 10/31/2023 Lab Requisition [facility] Pathology & Laboratory Medicine - [facility] [address] [place] [address] Yousif Carlin PA [address] [place] [address] [address] [place] [id number] Melanocytic nevi, unspecified Social History Tobacco Use [...] management options, if applicable. 11/04/2023 9:43 EDT [facility] Final Diagnosis A. SKIN OF CHEEK, LEFT, SHAVE BIOPSY: - Seborrheic keratosis, pigmented. 11/04/2023 9:43 EDT [facility] Attestation By the signature below, the attending physician certifies that they have 1) personally conducted a gross and/or microscopic examination of the described specimen(s), and/or personally interpreted the results of laboratory testing of the described specimen(s), and 2) personally rendered or confirmed the above diagnosis. 11/04/2023 9:43 [facility] at 0943 Microscopic Description [...] dermis and patchy lichenoid inflammation. 11/04/2023 9:43 [facility] Clinical History Atypical nevus, history melanoma; clinical diagnosis code: D22.9 11/04/2023 9:43 [facility] Gross Description A. Received in formalin labelled with proper patient identification (initials K, K) and L cheek is a 1.3 x 1.0 x 0.1 cm irregular shave of mottled rodriguez white to dark brown skin. The margin is inked. The specimen is trisected and entirely submitted in A1. HENOK GOLDEN(ASC) 11/03/2023 9:00 11/04/2023 9:43 [facility] Performing Lab [facility] 11/04/2023 9:43 [facility] Scanned Images 11/04/2023 9:43 T [facility] Tissue SPECIMEN FROM SKIN / Unknown 10/31/2023 14:10 EDT 10/31/2023 23:24 EDT us Yousif WHITING PATHOLOGY ORDERABLES Final Result [facility] [address] [place] [address] documented in this encounter Visit Diagnoses Diagnosis Melanocytic nevi, unspecified documented in this encounter Care Teams Dyno Technician Relationship Specialty Start Date End Date Jesu Guerra, DNP [address] [place] [address] PCP - General Family Medicine - Primary Care 10/03/23 documented as of this encounter
--- OUTSIDE RECORDS SUMMARY | 2024-08-13 17:18 | XMS_ITS | Referral Summary ---
Author Organization [facility] Address [address] [place] [address] Care Team Providers Care Equipment Scheduler Name Role Phone Jesu Guerra [facility] Primary Care Provider [phone] Social History Tobacco Use Types Packs/Day Years Used Date Smoking Tobacco: Never Assessed Sex and Gender Information Value Date Recorded Sex Assigned at Not on file Legal Sex Male 23:22 EDT Gender Identity Not on file Sexual Orientation Not on file Plan of Treatment Not on file Insurance [employer] MEDICARE Care Teams Equipment Scheduler Relationship Specialty Start Date End Date Jesu Guerra, DNP [facility] [place] [address] PCP - General Family Medicine - Primary Care 10/03/23
--- OUTSIDE RECORDS SUMMARY | 2024-08-13 17:18 | XMS_ITS | Encounter Summary ---
Author Organization [facility] Address [facility] [place] [address] Care Team Providers Care Surveillance Systems Engineer Name Role Phone Mauro Berumen MD Primary Care Provider Encounter Details Date Type Department Care Team (Late st Contact Info) Description 06/02/2024 External Results Administration [facility] [place] [address] Social History Tobacco Use Types Packs/Day Years Used Date Smoking Tobacco: Never Assessed [facility] Utilities Answer Date Recorded In the past 12 months has th e electric, gas, oil, or water [employer] threatened to shut off services in your [...] any time in the past 12 m [facility], were you homeless or living in a usp (including now)? No 06/03/2024 DH IPV Inpatient [...] Vascular Unit Level 3 Wing [address] at [facility] [place] [phone] Jim Benites MD [facility] [place] [address] documented as of this encounter Procedures Procedure Name Priority Date/Time Associated Diagnosis Comments MISC EXTERNAL CARDIOLOGY RESULT Routine 06/02/2024 9:54 PM EDT documented in this encounter Results * External Cardiology Result (06/02/2024 9:54 PM EDT) Anatomical Region Laterality Modality Other Historical Provider EXTERNAL CARDIOLO GY RESULT documented in this encounter Visit Diagnoses Not on filedocumented in this encounter Care Teams Surveillance Systems Engineer Relationship Specialty Start Date End Date Mauro Berumen MD [address] [place] [address] PCP - General Family Medicine 06/02/24 documented as of this encounter
--- OUTSIDE RECORDS SUMMARY | 2024-08-13 17:18 | XMS_ITS | Encounter Summary ---
Author Organization [facility] Address [facility] [place] [address] Care Team Providers Care Wing Scorer Name Role Phone Mauro Berumen MD Primary Care Provider [phone] Encounter Details Date Type Department Care Team (Late st Contact Info) Description 06/02/2024 Notes Only Cardiology [facility] [place] [address] Sascha Silva MD [facility] [place] [address] Social History Tobacco Use Types Packs/Day Years Used Date Smoking Tobacco: Never Assessed [facility] Utilities Answer Date Recorded [...] Data If Hospital to which patient presented= [facility]: ED Walk In Date and Time of First Medical Contact: 06/02/2024 9:20 PM Medical History (prior to current presentation) Myocardial Infarction: Yes Diabetes Mellitus: Yes Prior Percutaneous Coronary Intervention: Yes Prior Coronary Artery Bypass Graft: No Presenting Symptoms per OSH/EMS Free Text 855 PM acute on set pressure on chest. Presented to ED. Appears ashen. No contraindicationst to lytics. No cabg, 3X DC with JENNA, most recent 5 years ago. 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 Activated by: Credentialing Manager Initial Disposition: Admit Farm Machinery Assembler documented in this encounter Plan of Treatment Upcoming Encounters Date Type Department Care Team (Late st Contact Info) Description 08/14/2024 Hospital Encounter Heart and Vascular Unit Level 3 [place] [address] Jim Benites MD [facility] [place] [address] documented as of this encounter Visit Diagnoses Not on filedocumented in this encounter Care Teams Wing Scorer Relationship Specialty Start Date End Date Mauro Berumen MD [address] [place] [address] PCP - General Family Medicine 06/02/24 documented as of this encounter
--- OUTSIDE RECORDS SUMMARY | 2024-08-13 17:18 | XMS_ITS | Clinical Summary ---
Author Organization [facility] Address [address] [place] [address] Care Team Providers Care Physical Education Instructor Name Role Phone Jesu Guerra [facility] Primary Care Provider [phone] Social History Tobacco Use Types Packs/Day Years [...] 2032 Insurance [employer] MEDICARE Care Teams Physical Education Instructor Relationship Specialty Start Date End Date Jesu Guerra, [place] [place] [address] PCP - General Family Medicine - Primary Care 10/03/23
--- OUTSIDE RECORDS SUMMARY | 2024-08-13 17:18 | XMS_ITS | Continuity of Care Document ---
Author Organization [place] [facility] Address [address] [place] [address] Assessment No assessment recorded. Plan of Treatment Reminders Order Date Submit Date Provider Last Modified By Organization Details Last Modified Time Details Appointments follow up ER 2024 11:00A M MAURO CHARLTONE Not available Not available Not available Office Visit 30 2024 08:30A M MAURO DEGE Not available Not available Not available Lab hemoglobi n A1C, fingersti ck 2023 024 [facility], [address] [place] [address], [address], 06/24/2024 12:05:37 Referral None recorded. Procedures None recorded. Surgeries None recorded. Imaging None recorded. Medication Orders None recorded. Patient TargetsNo targets recorded. Patient Instructions Encounter Date Encounter Id Patient Instructions Last Modified By Organization Details Last Modified Time 06/24/2024 [id number] Dear Arturo Mehta, Thank you for visiting [...] with cardiac surgery on July 20 at [facility] for further evaluation and potential clearance to [...] hemoglobin A1C 7.4 % <5.7 Not Available [address], [address], 06/24/2024 11:59:16 06/02/2006/02/2024 vrad girish lopez Name: Erica Hernandez Unit #: [id number] Loc: ER Orderi ng Provid er: Accoun t #: [id number] Status : REG ER Primar y [...] MD. Lanette bernard:Mikey Luque MD Access ion#=[id number] Ordere d By: CC: ------ ------ [...] the addres s above. Thank- you. sergio [facility] [address], [place], [address] 06/07/2024 08:13:56 06/03/2006/03/2024 x-ray imagi joana repor t Patianna t Name: Erica Hernandez Unit #: [id number] Loc: ER Lanette bernard Provid er: Moises Hua Acctrace t #: [id number] Status : DEP ER Primar y Care [...] the addres s above. Thank- you. INTERFACE [facility] [address] , [place], [address] 06/03/2024 08:29:41 Result Notes None recorded. Problems Name Problem SNOMED Code Status Onset Date Resolution Date Notes Provider Name and Address Organization Details Recorded Time Coronary artery bypass grafts x 3 Active [address], [place], [address] [place] [address] - [facility] 4 11:27:04 Type 2 diabetes mellitus 17802557 Active [address], [place], [address], [facility] 4 16:23:15 Coronary arterioscle rosis 78356410 Active 2023 TN x 3, with stents Pacer AICD MD [address], [place], [address], [facility] 4 23:10:58 Essential hypertensio n 69428939 Active [address], [place], [address], [facility] 4 23:10:54 Chronic left-sided congestive heart failure 7259149 Active 2023 ICD. last echo 50% up from 35% post TN MD [address], [place], [address], [facility]. 4 18:10:13 Malignant melanoma 317780930 Active 2016 left scalp MD [address], [place], [address], [facility] 4 14:10:50 Adult health examination Active [address], [place], [address], [facility] 4 11:43:13 Onychomycos is 003952496 Active 2023 toenails MD [address], [place], [address], [facility] 4 11:47:27 Neuropathy due to diabetes mellitus 286247948 Active [address], [place], [address], [facility] 4 16:23:51 Mixed anxiety and depressive disorder 273496461 Active [address], [place], [address], [facility] 4 16:27:39 Ambulatory continuous glucose monitoring of interstitia l tissue fluid Active [address], [place], [address], [facility] 4 23:10:45 Hearing loss 96655658 Active [address], [place], [address], [facility] 4 23:11:04 Notes:Some problems listed i n Document: #[id number] could not be added to this patient's [...] by oral route as needed. active Per [facility] d/c 06/21/24 Not Available Not Available Not [...] 12 hours by oral route. active Per [facility] d/c 06/21/24 Not Available Not Available Not [...] ONCE DAILY AT BEDTIME active Stopped per [facility] 06/21/24 and decrease d to 30 units [...] Updated DateTime 4 167.64 cm 34.4 kg/m2 00762.1 7 g 97.5 [degF] 98 % 98 % 88 /min 124 mm[Hg] 78 mm[Hg] JENNIFER SORENSEN MA [facility] 4 11:13:30 Social History None recorded. Functional Status None recorded. Mental Status None recorded. Family History Nothing Reported. Medical History No medical history recorded. Immunizations Vaccine Type Date Status Note Provider Nam e and Address Organization Details Recorded Time COVID-19, mRNA, LNP-S, PF, jeferson-sucrose, 30 mcg/0.3 mL 4 completed MD [address], [place], [address], [facility] 08/30/2023 19:29:40 Tdap 4 completed MD [address], [place], [address], [facility] 12/01/2023 18:15:36 Influenza, high-dose, trivalent, PF 4 completed GUERO ANTHONY, [facility] 05/18/2024 11:35:26 COVID-19, mRNA, LNP-S, PF, jeferson-sucrose, 30 mcg/0.3 mL 4 completed GUERO ANTHONY, [facility] 05/18/2024 11:35:26 Pneumococcal conjugate PCV20, polysaccharide CIO096 conjugate, adjuvant, PF 3 completed ANDRÉS DOYLE, [facility] 08/12/2023 15:42:12 influenza, unspecified formulation 3 completed ANDRÉS DOYLE, [facility] 08/26/2023 11:13:50 Past Encounters Encounter ID Performer Location Encounter Start Date Encounter Closed Date Diagnosis/Indication Diagnosis SNOMED-CT Code Diagnosis ICD10 Code Diagnosis Note [id number] MAURO SANTOS MD [address] [address] 06/24/2024 10:27:47 06/24/2024 11:47:01 Type 2 diabetes mellitus 55355407 E11.9 A1c 7.4%. Blood sugars been more [...] regimen & diabetes treatment plan Coronary arteriosclerosis 23723169 I25.10 Post CABG, appears to doing well. No anginal symptoms, nothing to suggest CHF. Follow-up with cardiothor acjess surgery as scheduled, he is under the understand ing that they will refer him to cardiac rehab at that time Essential hypertension 12620798 I10 No changes, recent labs up-to-date Health Concerns Section Related Observation LastModified by Organization Detai ls LastModified Time None Recorded Concern Status LastModified by Organization Details LastModified Time None Recorded Payers Encounter Date Sequence Insurance Name Policy Number Policy Suazo Covered Member ID Suazo Member ID Guarantor Name 06/24/2024 1 [facility] (MEDICARE REPLACEMENT/A DVANTAGE - PPO) [id number] Arturo Mehta [id number] Arturo Mehta Notes Date Note Type Note [...] antibiotics on the wounds. MAURO SANTOS MD [facility] [address], [place], [address], [facility]. 06/29/2024 10:37:50
--- OUTSIDE RECORDS SUMMARY | 2024-08-13 17:18 | XMS_ITS | Encounter Summary ---
Author Organization [facility], Located Within [facility] [place] [address] Care Team Providers Care Hand Blocker Name Role Phone Mauro Berumen MD Primary Care Provider [phone] Reason for Visit * Auth/Cert Specialty Diagnoses / Procedures Referred By Carroll lopez Referred To Contact Diagnoses STEMI (ST elevation myocardial infarction) STEMI Procedures CARDIAC CATHETERIZATION EMERGENCY Delroy Monterroso MD [facility] [place] [address] [facility] Referral ID Status Reason Start Date Expiration Date Visits Re quested Visits Authorized [id number] 1 1 Encounter Details Date Type Department Care Team (Late st Contact Info) Description 06/02/2024 11:00 PM EDT - 06/03/2024 12:18 AM EDT Surgery [place] [address] Nuha Shen MD [facility] [place] [address] CARDIAC CATHETERIZATION Social History Tobacco Use Types Packs/Day Years Used Date Smoking Tobacco: Every Day Cigarettes Smokeless Tobacco: Never Tobacco Cessation:Ready to Q uit: No; Counseling Given: Yes [facility] Utilities Answer Date Recorded In the past 12 months has [employer], gas, oil, or water [employer] threatened to shut off services in your [...] any time in the past 12 m [facility], were you homeless or living in a group home (including now)? No 06/03/2024 DH IPV [...] Patient Age: 69 y.o. Birthdate: 1955 Language: Chinese Race: Choose not to Disclose Ethnicity: Not nor Admit Date: 06/02/2024 Discharge Date: 06/21/2024 Attending Physician: Bobby Loja MD Follow-up Recommendations for Providers: Please continue routine management of cardiovascular risk factors including blood pressure, lipids,glucose, etc. Please note any changes to medications. Patient to follow up with PCP, Mauro Berumen MD, in 1-2 weeks. Patient to follow up with Family Court Registrar, Kristen Cardenas in 2-3 weeks. Patient to follow up with Cardiac Surgeon, Dr. Bobby Loja, in 4 wks. Inpatient Provider Contact Information: [facility] Cardiac Surgery [facility] [address] FAX [phone] Discharge Diagnoses (Hospital Problems) Primary Diagnoses: STEMI [...] 7.93) [facility] PRO ENDOSCOPY W/VIDEO-ASST VEIN HARVEST, CABG N/A 06/14/2024 ENDOSCOPIC HARVEST VEIN(S) FOR CABG (WRVU 0.31) performed by Bobby Loja MD at [facility] MAIN OR PRO EXC MEDIASTINAL TUMOR N/A 06/14/2024 @EXCISION OF MEDIASTINAL TUMOR (WRVU 19.55) performed by Bobby Loja MD at [facility] OR PRO INSERT INTRA-AORTIC BALLOON ASST DEVICE PERCUTANEOUS N/A 06/13/2024 @INSERTION OF IABP,PERCUTANEOUS (WRVU 4.84) performed by Nuha Shen MD at [facility] CATH LABS PRO UNLISTED CARDIAC SURG PROCEDURE N/A 06/14/2024 EXPLORATION AND OVERSEW ATRIAL APPENDAGE (WRVU 5.94) performed by Bobby Loja MD at [facility] Prior To Admission Medications Medications [...] y.o. male with a PMHx of previous KS s/p PCI x3, ICM/HFrEF (LVEF 30%) s/p ICD, DMII, HTN, HLD, remote melanoma, and smoker who presented to [facility] last night via EMS after developing acute, severe chest pain while watching TV. Patient was ruled in for STEMI, given TNK, ASA, plavix, heparin gtt, and sent to [facility] for coronary angiography. 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 He was brought to the lab assistant which showed severely calcified left coronary system with notable LCx 75/80% lesions and HYDRO PLANT TECHNICIAN OM1 with ISR with collateral retrograde filling, [...] juice or regular (not diet) soda 6 Satellogicavers small box of raisins 4 glucose tablets [...] 2 tablespoons of dried fruit. Milk and ga-hsxku-twpge yogurt have 15 grams of carbs in a serving. A serving is 1 cup of milk or 3/4 cup (6 oz) of db-cyquq-azjdp yogurt. Starchy vegetables have 15 grams of carbs in a serving. A serving is ?? cup of mashed potatoes or sweet potato; 1 cup winter squash; ?? of a small baked potato; ?? cup of cooked beans; or ?? cup cooked corn or green peas. Learn how much carbs to eat each day and at each meal. A dietitian or certified phlebotomist can teach you how to keep track [...] Bobby Loja and/or the Cardiac Surgery Physician Emergency Room Rn Team may be reached at . Weight: [...] Dr. Bobby Loja. You may use a [place] Track or treadmill but avoid any pulling [...] friends, go to a movie, go to yarsanism, etc. Heavy activities: No hunting, skiing, jogging, snow shoveling, snowmobiling, lawn mowing, swimming,golf or tennis until after your return appointment with the surgeon. Do not ride motorcycles, [employer]'stractors or horses. Avoid the use of a [...] while being managed by your PCP and/or Family Court Registrar. For future medication refills, please refer to your PCP and/or Family Court Registrar after your discharge from our service. Thank you REMOVE CHEST TUBE SUTURES ON OR AFTER 06/24/2024 Home oxygen therapy: N/A Follow up appointments: You should follow up with your PCP, Mauro Berumen MD, in 1-2 weeks. You should follow up with your Family Court Registrar, Dr CARDENAS. You have an appointment with your Cardiac Surgeon, Dr. Bobby Loja, in 4 wks. Cardiac Rehabilitation: George Mehta was seen today regarding participation in the outpatient Phase 2 Cardiac Rehabilitation at [facility]. The patient agrees to a referral to this program. The referral will be sent at discharge and the patient should be contacted by the program within 1-2 weeks from discharge. Future Appointments and Orders Future Orders Complete By Expires Referral to Cardiac Rehab [[id number] Custom] As directed Process Instructions: If no progress note charted, please enter Clinical details in comments. Scheduling Instructions: Questions: My question or request is: s/p CABG- cardiac rehab at [facility] Referral to Home Health [[id number] Custom] As directed Process Instructions: If no progress note charted, please enter Clinical details in comments. Scheduling Instructions: Comments: Please evaluate George Mehta for admission to Home Health. [address] [facility] [address] (home) Date of : 1955 Inpatient DOCUMENTATION FOR VNA SERVICES (INCLUDING THOSE PATIENTS WITH MEDICARE COVERAGE REQUIRINGHOME VNA SERVICES AND/OR HOSPICE SERVICES) PATIENT'S LOCATION: George Mehta [address] [place] [address] [address] [facility] [address] (home) Telephone Information: Music Leader's Name: self In discussion with the attending physician, it is certified that this patient is under their care and that they, or a Nurse Practitioner, or Physician Emergency Room Rn who is working directly with them, hada [...] for services as follows: HOME HEALTH AGENCY: [facility] [address] [place] [id number] RN orders: Cardiopulmonary assessment, incisional assessment, assess [...] issues please call the Cardiology Office at [phone] FOR MEDICARE ONLY: (please delete this section [...] care: As above. Signed: KEILA HANLEY APRN [facility] of Cardiac Surgery [facility] [address] FAX [phone] Date: 06/21/2024 CC: MD Antonino Tinajero Joshua R, PA [address] [place] [address] [place] [address] documented in this encounter Discharge Instructions * [...] 2 tablespoons of dried fruit. Milk and bx-khbux-cvoox yogurt have 15 grams of carbs in a serving. A serving is 1 cup of milk or 3/4 cup (6 oz) of jj-psgnz-ktivf yogurt. Starchy vegetables have 15 grams of carbs in a serving. A serving is ?? cup of mashed potatoes or sweet potato; 1 cup winter squash; ?? of a small baked potato; ?? cup of cooked beans; or ?? cup cooked corn or green peas. Learn how much carbs to eat each day and at each meal. A dietitian or certified phlebotomist can teach you how to keep track [...] Bobby Loja and/or the Cardiac Surgery Physician Emergency Room Rn Team may be reached at . Weight: [...] Dr. Bobby Loja. You may use a [place] Track or treadmill but avoid any pulling [...] friends, go to a movie, go to yarsanism, etc. Heavy activities: No hunting, skiing, jogging, snow shoveling, snowmobiling, lawn mowing, swimming,golf or tennis until after your return appointment with the surgeon. Do not ride motorcycles, [employer]'stractors or horses. Avoid the use of a [...] while being managed by your PCP and/or Family Court Registrar. For future medication refills, please refer to your PCP and/or Family Court Registrar after your discharge from our service. Thank you REMOVE CHEST TUBE SUTURES ON OR AFTER 06/24/2024 Home oxygen therapy: N/A Follow up appointments: You should follow up with your PCP, Mauro Berumen MD, in 1-2 weeks. You should follow up with your Family Court Registrar, Dr CARDENAS. You have an appointment with your Cardiac Surgeon, Dr. Bobby Loja, in 4 wks. Cardiac Rehabilitation: George Mehta was seen today regarding participation in the outpatient Phase 2 Cardiac Rehabilitation at [facility]. The patient agrees to a referral [...] MARIALUISA clipping. PMH of chronic HFrEF s/p WELT SOLE LAYER/ICD, IDDM2, HTN, HLD, remote melanoma, active smoker. [...] juice or regular (not diet) soda 6 Satellogicavers small box of raisins 4 glucose tablets [...] 2 tablespoons of dried fruit. Milk and um-txpiw-kgykj yogurt have 15 grams of carbs in a serving. A serving is 1 cup of milk or 3/4 cup (6 oz) of ip-voypj-znenw yogurt. Starchy vegetables have 15 grams of carbs in a serving. A serving is ?? cup of mashed potatoes or sweet potato; 1 cup winter squash; ?? of a small baked potato; ?? cup of cooked beans; or ?? cup cooked corn or green peas. Learn how much carbs to eat each day and at each meal. A dietitian or certified phlebotomist can teach you how to keep track [...] cheese, and peanut butter. Alejandra Baumann APRN [facility] Endocrinology Diabetes Management Pager [phone] Weekends please page [phone] * Eric Packer PA - 06/20/2024 7:44 AM EST Cardiac Surgery Progress Note George Mehta is a 69 y.o. male with a history of CAD s/p multiple PCI who presented with an anterior STEMI and was given lytics. Cath showed MV CAD without culprit vessel. He is now 6 Days Post-OpCABGx3 and MARIALUISA clipping. PMH of chronic HFrEF s/p WELT SOLE LAYER/ICD, IDDM2, HTN, HLD, remote melanoma, active smoker. 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 06/20/2024 Between the hours of 1800 - 0600 and on the weekends please page [phone]. * Alejandra Baumann, JOSÉ ANTONIO - 06/20/2024 7:21 AM EST Follow Up Diabetes Consult Patient Interview Blood glucose values and insulin use reviewed. loan processor BG to 59 despite decrease in glargine [...] MARIALUISA clipping. PMH of chronic HFrEF s/p WELT SOLE LAYER/ICD, IDDM2, HTN, HLD, remote melanoma, active smoker. loan processor BG to 59 despite decrease in glargine [...] based on ISF 20 Alejandra Baumann APRN [facility] Endocrinology Diabetes Management Pager [phone] Weekends please page [phone] Insulin Discharge Instructions Preliminary Diabetes Discharge Instructions [...] 2 tablespoons of dried fruit. Milk and tr-ciguu-gfgvc yogurt have 15 grams of carbs in a serving. A serving is 1 cup of milk or 3/4 cup (6 oz) of vv-ykzuq-yktab yogurt. Starchy vegetables have 15 grams of carbs in a serving. A serving is ?? cup of mashed potatoes or sweet potato; 1 cup winter squash; ?? of a small baked potato; ?? cup of cooked beans; or ?? cup cooked corn or green peas. Learn how much carbs to eat each day and at each meal. A dietitian or certified phlebotomist can teach you how to keep track [...] MARIALUISA clipping. PMH of chronic HFrEF s/p WELT SOLE LAYER/ICD, IDDM2, HTN, HLD, remote melanoma, active smoker. 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 Jeffy Hood MD 06/19/2024 Between the hours of 1800 - 0600 and on the weekends please page [phone]. * Alejandra Baumann, GARNETT ROOM WORKER - 06/19/2024 7:09 AM EST Follow Up Diabetes Consult Patient Interview Blood glucose values and insulin use reviewed. Jardiance added back yesterday, fisher trawl line low BGto 51. Glargine reduced to 45 [...] MARIALUISA clipping. PMH of chronic HFrEF s/p WELT SOLE LAYER/ICD, IDDM2, HTN, HLD, remote melanoma, active smoker. Jardiance added back yesterday. loan processor low BG to 51. Glargine reduced to [...] 2 tablespoons of dried fruit. Milk and zd-yapjx-hdghe yogurt have 15 grams of carbs in a serving. A serving is 1 cup of milk or 3/4 cup (6 oz) of gl-yciay-nfeqt yogurt. Starchy vegetables have 15 grams of carbs in a serving. A serving is ?? cup of mashed potatoes or sweet potato; 1 cup winter squash; ?? of a small baked potato; ?? cup of cooked beans; or ?? cup cooked corn or green peas. Learn how much carbs to eat each day and at each meal. A dietitian or certified phlebotomist can teach you how to keep track [...] cheese, and peanut butter. Alejandra Baumann APRN [facility] Endocrinology Diabetes Management Pager [phone] Weekends please page [phone] EL * Hilda Resendez PTA - 06/18/2024 9:19 AM EST Physical Therapy Note 2 Patient profile: George Mehta is a 69 y.o. male with a history of CAD s/p multiple PCI who presented with an anterior STEMI and was given lytics. Cath showed MV CAD without culprit vessel. He is now 1 Day Post-Op CABGx3 and MARIALUISA clipping. PMH of chronic HFrEF s/p WELT SOLE LAYER/ICD, IDDM2, HTN, HLD, remote melanoma, active smoker. Interval History: Per last cardiac surgery note on 06/18/2024 Cr improved 1.4 on lasix 40 iv bid -1.5L, made 2.5L urine Coreg, entresto restarted Floor status Social History: Pt lives with his in a 1 level apartment with no steps to enter. 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 He drives. He sleeps in a recliner at baseline. Precautions/Special Considerations: Sternal precautions, PIV, at risk to fall, PPM Mobility and Positioning Recommendations: Pt to utilize no AD, supervision for ambulation and transfers w/ staff attorney as able. Please encourage up to chair [...] least restrictive device Time IN / OUT: 6109-5313 Total Time: 11 minutes; TEF 1 Hilda Resendez PTA Pager: [phone] Physical Therapy Inpatient Rehabilitation Department * Keila Hanley, GARNETT ROOM WORKER - 06/18/2024 8:48 AM EST Cardiac Surgery Progress Note George Mehta is a 69 y.o. male with a history of CAD s/p multiple PCI who presented with an anterior STEMI and was given lytics. Cath showed MV CAD without culprit vessel. He is now 4 Days Post-OpCABGx3 and MARIALUISA clipping. PMH of chronic HFrEF s/p WELT SOLE LAYER/ICD, IDDM2, HTN, HLD, remote melanoma, active smoker. 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 Restarting jardiance #Active smoker Duoneb prn Dispo: CVCC, Full code, tx to floor Discussed with attending surgeon on rounds this morning. KEILA HANLEY, GARNETT ROOM WORKER 06/18/2024 Between the hours of 1800 - 0600 and on the weekends please page [phone]. * Alejandra Baumann, GARNETT ROOM WORKER - 06/17/2024 3:29 PM EST Follow Up [...] MARIALUISA clipping. PMH of chronic HFrEF s/p WELT SOLE LAYER/ICD, IDDM2, HTN, HLD, remote melanoma, active smoker. [...] based on ISF 20 Alejandra Baumann APRN [facility] Endocrinology Diabetes Management Pager [phone] Weekends please page [phone] 35 minutes were spent over the course [...] MARIALUISA clipping. PMH of chronic HFrEF s/p WELT SOLE LAYER/ICD, IDDM2, HTN, HLD, remote melanoma, active smoker. [...] 0600 and on the weekends please page [phone]. * Raymond Carlton MD - 06/16/2024 1:11 PM EST CARDIAC CRITICAL CARE ATTENDING STAFF PROGRESS NOTE Patient seen and examined. George Mehta is a 69 y.o. male with: Active Hospital Problems Diagnosis STEMI (ST elevation myocardial infarction) Cardiac resynchronization therapy defibrillator (WELT SOLE LAYER-D) - Medtronic Amplia Cardiomyopathy, ischemic Acute on chronic heart failure with reduced ejection fraction (HFrEF, <= 40%) Coronary artery disease involving douglas coronary artery of douglas heart without angina pectoris Type 2 diabetes [...] encouragement provided Patient screened for f/u and bond underwriter met pt at bedside. Pt states [...] unless consulted in the interim. RICHA Simmons Consulting Sales Executive * Octaviano Horvath PA - 06/16/2024 8:07 AM EST Cardiac Surgery Progress Note George Mehta is a 69 y.o. male with a history of CAD s/p multiple PCI who presented with an anterior STEMI and was given lytics. Cath showed MV CAD without culprit vessel. He is now 2 Days Post-OpCABGx3 and MARIALUISA clipping. PMH of chronic HFrEF s/p WELT SOLE LAYER/ICD, IDDM2, HTN, HLD, remote melanoma, active smoker. [...] 0600 and on the weekends please page [phone]. * Jono Fernandez, PT - 06/15/2024 4:09 PM EST Physical Therapy Evaluation Patient profile: George Mehta is a 69 y.o. male with a history of CAD s/p multiple PCI who presented with an anterior STEMI and was given lytics. Cath showed MV CAD without culprit vessel. He is now 1 Day Post-Op CABGx3 and MARIALUISA clipping. PMH of chronic HFrEF s/p WELT SOLE LAYER/ICD, IDDM2, HTN, HLD, remote melanoma, active smoker. 24h Events: From OR on Dobutamine IABP removed Bedrest ended ~2100, sedation weaned Extubated ~0200 Dobutamine weaned to 1 this morning, CI 2.6, shut off and repeat CI 2.4 Social History: Pt lives with his in a 1 level apartment with no steps to enter. 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 He drives. He sleeps [...] outlined inthis evaluation. JONO FERNANDEZ, PT Pager: [phone] Physical Therapy Inpatient Rehabilitation Department Time IN / OUT: 0675-4399 Total Time: 33 (eval) minutes * Alejandra Baumann APRN - 06/15/2024 11:39 AM EST Follow Up Diabetes Consult Patient Interview Blood glucose values and insulin use reviewed. Pt remains on an insulin drip today following SNYEl0dor MARIALUISA clipping. George continues to complain of [...] MARIALUISA clipping. PMH of chronic HFrEF s/p WELT SOLE LAYER/ICD, IDDM2, HTN, HLD, remote melanoma, active smoker. [...] based on ISF 20 Alejandra Baumann APRN [facility] Endocrinology Diabetes Management Pager [phone] Weekends please page [phone] 50 minutes were spent over the course [...] elevation myocardial infarction) Cardiac resynchronization therapy defibrillator (WELT SOLE LAYER-D) - Medtronic Amplia Cardiomyopathy, ischemic Acute on chronic heart failure with reduced ejection fraction (HFrEF, <= 40%) Coronary artery disease involving douglas coronary artery of douglas heart without angina pectoris Type 2 diabetes [...] with h/o DM, CAD with prior PCI, WELT SOLE LAYER-D who presented with crushing chest pain, found [...] MARIALUISA clipping. PMH of chronic HFrEF s/p WELT SOLE LAYER/ICD, IDDM2, HTN, HLD, remote melanoma, active smoker. [...] 0600 and on the weekends please page [phone]. * Yoli Donaldson, [facility] - 06/15/2024 5:35 AM EST AMV Protocol: [...] with h/o DM, CAD with prior PCI, WELT SOLE LAYER-D who presented with crushing chest pain, found [...] 1.5 PTT 31 T/L/D Barr ETT CVL [place] CT Pacing wires ASSESSMENT, MANAGEMENT, and DECISION MAKIN y.o. male with h/o DM, CAD with prior PCI, WELT SOLE LAYER-D who presented with crushing chest pain, found [...] 0600 and on the weekends please page [phone]. * Chloé Cortez - 06/14/2024 9:36 AM [...] unless consulted in the interim. Chloé Cortez Rope Walker * Jim Benites MD - 06/13/2024 1:15 [...] - Mildly dilated left ventricle size with muzpzkxa-tl-mqzllaxd decreased LV systolic function. LV ejection fraction [...] ACS/crushing chest pain, likely due to lateral KS, found to have surgical CAD with viability [...] (abstinent since admission), ASCVD with multiple prior KS and PCIs, ICM/HFrEF LVEF 30% (all territories [...] elevation myocardial infarction) Cardiac resynchronization therapy defibrillator (WELT SOLE LAYER-D) - Medtronic Amplia Cardiomyopathy, ischemic Acute on chronic heart failure with reduced ejection fraction (HFrEF, <= 40%) Coronary artery disease involving douglas coronary artery of douglas heart without angina pectoris Type 2 diabetes [...] PCP: Mauro Berumen MD PCP phone number: [phone] Date of Admission: 06/02/2024 ( Hospital Day 10 days ) Attending:Ethel Carrillo MD ID: 69 y.o. male with a h/o DM type 2, HTN, HLD, current smoker (2-3 cigarettes/day), HFrEF with anICD for low EF (~30%), and CAD with prior KS x3 with JENNA placed in [place], Melanoma, PAD, presented to [facility] with 1 hour of retrosternal CP (05/13) while watching TV, found to have STEMI. Active Problems: Active Hospital Problems Diagnosis STEMI (ST elevation myocardial infarction) Cardiac resynchronization therapy defibrillator (WELT SOLE LAYER-D) - Medtronic Amplia Cardiomyopathy, ischemic Acute on chronic heart failure with reduced ejection fraction (HFrEF, <= 40%) Coronary artery disease involving douglas coronary artery of douglas heart without angina pectoris Type 2 diabetes [...] in the last 7068 hours. Invalid input(s): [id number] Recent Labs 06/12/24 0425 06/11/24 2356 06/11/24 2025 06/11/24 1624 06/11/24 1108 06/11/24 0748 06/11/24 0357 06/11/24 0050 06/10/24 1922 06/10/24 1735 06/10/24 1125 06/10/24 0746 POCGLU 132 135 210* 81 233* 184 132 144 236* 123 216* 206* Heme No results for input(s): LDH, HAPTOGLOBIN, URICACID in the last 168 hours. ABG (Arterial Blood Gas) No results found for: PHART, PO2ART, URZ1DWR, OTM0UDY Microbiology: Microbiology Results (Last 30 days) No results found for the last 720 hours. Imaging: Results for orders placed or performed during the hospital encounter of 06/02/24 XR Chest One View (Exam End: 06/03/2024 2:41 AM) Result Value WORKSTATION ID [id number] Impression No radiographically evident acute cardiopulmonary process. Thank you for letting us participate in the care of this patient. If you are a health care provider and have any questions regarding this report, please contact the number below. For patients who have questions please contact the health lawn care professional that requested your imaging first. Cardiac Morphology Function wwo Contrast (Exam End: 06/07/2024 1:10 PM) Result Value WORKSTATION ID [id number] Impression - Findings consistent with an ischemic [...] - Mildly dilated left ventricle size with dfeeahdy-ym-oyltbdhc decreased LV systolic function. LV ejection fraction [...] who have questions please contact the health lawn care professional that requested your imaging first. Chest wo Contrast (Generic) (Exam End: 06/03/2024 4:33 PM) Result Value WORKSTATION ID [id number] Impression Cardiomegaly. Biventricular ICD leads in place. Thank you for letting us participate in the care of this patient. If you are a health care provider and have any questions regarding this report, please contact the number below. For patients who have questions please contact the health lawn care professional that requested your imaging first. Chest PA & Lateral (Generic) (Exam End: 06/07/2024 7:03 AM) Result Value WORKSTATION ID [id number] Impression Biventricular ICD leads intact and in [...] who have questions please contact the health lawn care professional that requested your imaging first. : Limited echo performed by fellow distribution engineering technologist to assess LV function. Left ventricle is [...] ischemic cardiomyopathy with HFrEF (~30% EF), prior KS with stents, DM type 2, HTN, HLD, active smoker, presented with anterior STEMI. Angiography revealed severe multivessel CAD with extensive calcification and YUE 3 flow in all vessels, without a clear culprit lesion. Currently pain-free after TNK, Plavix, ASA, and heparin, with mildly elevated LVEDP at 40 mmHg and mild volume overload. 06/12/24: Patient stable, asymptomatic. Plan to go to lab assistant for balloon pump tomorrow, then willgo to [facility] prior to CABG on Friday. #ASCVD / STEMI: -Holding Plavix; continue ASA and heparin gtt. -Monitor telmetry -TTE -Viability planning per CT surgery - CT chest (complete) - Carotid duplex bilat (complete) - Cardiac MR (scheduled today Thursday 06/07) - Will need balloon pump prior to CABG on Friday, likely Friday then transfer to [facility] #HFrEF (Ischemic Cardiomyopathy): -Monitor I&O and [...] CODE Dain Colón MD Cardiology, M1-S2, Pager #[phone] 06/12/24 Associated attestation - Ethel Carrillo MD [...] (abstinent since admission), ASCVD with multiple prior KS and PCIs, ICM/HFrEF LVEF 30% (all territories [...] of two midnights or is on the [facility] inpatient only procedure list (status C) due to: acute myocardial infarction requiring titration of IV medication and fluid monitoring and decompensated congestive heart failure requiring IV medication and fluid monitoring Ethel Carrillo MD Cardiovascular Medicine Personal Pager [phone] 06/12/2024 9:12 PM * Alejandra Baumann, GARNETT ROOM WORKER - 06/11/2024 4:21 PM EST Images from [...] too aggressive, suggest ICR 1:6 (rule of [id number]/81 = 6.25). George is up and walking [...] ischemic cardiomyopathy with HFrEF (~30% EF), prior KS with stents, DM type 2, HTN, HLD, [...] on placing this weekend and transfer to [facility], likely Friday. With lower BG following [...] ac, metformin 1000mg BID Alejandra Baumann APRN [facility] Endocrinology Diabetes Management Pager [phone] Weekends please page [phone] 35 minutes were spent over the course [...] PCP: Mauro Berumen MD PCP phone number: [phone] Date of Admission: 06/02/2024 ( Hospital Day 9 days ) Attending:Melida Valdes MD ID: 69 y.o. male with a h/o DM type 2, HTN, HLD, current smoker (2-3 cigarettes/day), HFrEF with anICD for low EF (~30%), and CAD with prior KS x3 with JENNA placed in [place], Melanoma, PAD, presented to [facility] with 1 hour of retrosternal CP (05/13) while watching TV, found to have STEMI. Active Problems: Active Hospital Problems Diagnosis STEMI (ST elevation myocardial infarction) Cardiac resynchronization therapy defibrillator (WELT SOLE LAYER-D) - Medtronic Amplia Cardiomyopathy, ischemic Acute on chronic heart failure with reduced ejection fraction (HFrEF, <= 40%) Coronary artery disease involving douglas coronary artery of douglas heart without angina pectoris Type 2 diabetes [...] in the last 7068 hours. Invalid input(s): [id number] Recent Labs 06/11/24 0357 06/11/24 0050 06/10/24 1922 06/10/24 1735 06/10/24 1125 06/10/24 0746 06/10/24 0423 06/10/24 0005 06/09/24 2036 06/09/24 1727 06/09/24 1152 06/09/24 0810 POCGLU 132 144 236* 123 216* 206* 154 125 197 174 211* 209* Heme No results for input(s): LDH, HAPTOGLOBIN, URICACID in the last 168 hours. ABG (Arterial Blood Gas) No results found for: PHART, PO2ART, TPJ6YNM, BYO5HBF Microbiology: Microbiology Results (Last 30 days) No results found for the last 720 hours. Imaging: Results for orders placed or performed during the hospital encounter of 06/02/24 XR Chest One View (Exam End: 06/03/2024 2:41 AM) Result Value WORKSTATION ID [id number] Impression No radiographically evident acute cardiopulmonary process. Thank you for letting us participate in the care of this patient. If you are a health care provider and have any questions regarding this report, please contact the number below. For patients who have questions please contact the health lawn care professional that requested your imaging first. Cardiac Morphology Function wwo Contrast (Exam End: 06/07/2024 1:10 PM) Result Value WORKSTATION ID [id number] Impression - Findings consistent with an ischemic [...] - Mildly dilated left ventricle size with zddqwerk-pa-ucgufieq decreased LV systolic function. LV ejection fraction [...] who have questions please contact the health lawn care professional that requested your imaging first. Chest wo Contrast (Generic) (Exam End: 06/03/2024 4:33 PM) Result Value WORKSTATION ID [id number] Impression Cardiomegaly. Biventricular ICD leads in place. Thank you for letting us participate in the care of this patient. If you are a health care provider and have any questions regarding this report, please contact the number below. For patients who have questions please contact the health lawn care professional that requested your imaging first. Chest PA & Lateral (Generic) (Exam End: 06/07/2024 7:03 AM) Result Value WORKSTATION ID [id number] Impression Biventricular ICD leads intact and in [...] who have questions please contact the health lawn care professional that requested your imaging first. : Limited echo performed by fellow distribution engineering technologist to assess LV function. Left ventricle is [...] Continuous Infusions: heparin (porcine) infusion 1,400 Units/hr (06/10/244) PRN Meds:.insulin lispro, glucose 40% oral geL [...] ischemic cardiomyopathy with HFrEF (~30% EF), prior KS with stents, DM type 2, HTN, HLD, [...] CODE Dain Colón MD Cardiology, M1-S2, Pager #[phone] 06/11/24 Associated attestation - Ethel Carrillo MD [...] (abstinent since admission), ASCVD with multiple prior KS and PCIs, ICM/HFrEF LVEF 30% (all territories [...] of two midnights or is on the [facility] inpatient only procedure list (status C) due to: acute myocardial infarction requiring titration of IV medication and fluid monitoring and decompensated congestive heart failure requiring IV medication and fluid monitoring Ethel Carrillo MD Cardiovascular Medicine Personal Pager [phone] 06/11/2024 9:35 PM * Hilary Belle - 06/10/2024 12:39 PM EST Nutrition Services Note George Mehta is a 69 y.o. male Reason for intervention: hospital day 9 Nutrition Plan: Continue diet order: 60/60/75 CHO Level 2 Encourage good PO Lasix and Insulin noted Monitor weight Patient scheduled for a hospital day 9 nutrition evaluation. Diagrammer And Seamer attempted to meet with pt at bedside [...] unless consulted in the interim. Hilary Belle Consulting Sales Executive * Mariia Montero RN - 06/10/2024 12:23 PM EST I have met with the patient to: discuss discharge planning needs. provide the [facility], Office of Care Management letter from the [employer] pertaining to rehab referrals. provide a letter describing our affiliations within the [facility] and educate about their right to choose where referrals are sent. provide a list of Home Health Agencies / Durable Medical Equipment vendors which serve their preferred geographic area. provided patient with [facility] Star Quality Rating handout. They have requested referrals to: [facility]. [address] [place] [address] RN / PT Anticipated d/c date: 06/20/24 Note routed to a Flow Coordinator who will communicate referrals to facilities and provide any required information. * Dain Colón MD - 06/10/2024 7:17 AM EST Images from the original note were not included. . Cardiology Progress Note Patient info: Name: George Mehta : 1955 PCP: Mauro Berumen MD PCP phone number: [phone] Date of Admission: 06/02/2024 ( Hospital Day 8 days ) Attending:Melida Valdes MD ID: 69 y.o. male with a h/o DM type 2, HTN, HLD, current smoker (2-3 cigarettes/day), HFrEF with anICD for low EF (~30%), and CAD with prior KS x3 with JENNA placed in [place], Melanoma, PAD, presented to [facility] with 1 hour of retrosternal CP (05/13) while watching TV, found to have STEMI. Active Problems: Active Hospital Problems Diagnosis STEMI (ST elevation myocardial infarction) Cardiac resynchronization therapy defibrillator (WELT SOLE LAYER-D) - Medtronic Amplia Cardiomyopathy, ischemic Acute on chronic heart failure with reduced ejection fraction (HFrEF, <= 40%) Coronary artery disease involving douglas coronary artery of douglas heart without angina pectoris Type 2 diabetes [...] in the last 7068 hours. Invalid input(s): [id number] Recent Labs 06/10/24 0423 06/10/24 0005 06/09/24 2036 06/09/24 1727 06/09/24 1152 06/09/24 0810 06/09/24 0440 06/09/24 0034 06/08/24 2027 06/08/24 1616 06/08/24 1235 06/08/24 0810 POCGLU 154 125 197 174 211* 209* 131 186 176 159 226* 190 Heme No results for input(s): LDH, HAPTOGLOBIN, URICACID in the last 168 hours. ABG (Arterial Blood Gas) No results found for: PHART, PO2ART, MZR7TCW, VMP2FXF Microbiology: Microbiology Results (Last 30 days) No results found for the last 720 hours. Imaging: Results for orders placed or performed during the hospital encounter of 06/02/24 XR Chest One View (Exam End: 06/03/2024 2:41 AM) Result Value WORKSTATION ID [id number] Impression No radiographically evident acute cardiopulmonary process. Thank you for letting us participate in the care of this patient. If you are a health care provider and have any questions regarding this report, please contact the number below. For patients who have questions please contact the health lawn care professional that requested your imaging first. Cardiac Morphology Function wwo Contrast (Exam End: 06/07/2024 1:10 PM) Result Value WORKSTATION ID [id number] Impression - Findings consistent with an ischemic [...] - Mildly dilated left ventricle size with lurovuab-yp-unkjwxca decreased LV systolic function. LV ejection fraction [...] who have questions please contact the health lawn care professional that requested your imaging first. Chest wo Contrast (Generic) (Exam End: 06/03/2024 4:33 PM) Result Value WORKSTATION ID [id number] Impression Cardiomegaly. Biventricular ICD leads in place. Thank you for letting us participate in the care of this patient. If you are a health care provider and have any questions regarding this report, please contact the number below. For patients who have questions please contact the health lawn care professional that requested your imaging first. Chest PA & Lateral (Generic) (Exam End: 06/07/2024 7:03 AM) Result Value WORKSTATION ID [id number] Impression Biventricular ICD leads intact and in [...] who have questions please contact the health lawn care professional that requested your imaging first. : Limited echo performed by fellow distribution engineering technologist to assess LV function. Left ventricle is [...] ischemic cardiomyopathy with HFrEF (~30% EF), prior KS with stents, DM type 2, HTN, HLD, [...] plan on placing this and transfer to [facility], likely Friday. #ASCVD / STEMI: -Holding [...] CODE Dain Colón MD Cardiology, M1-S2, Pager #[phone] 06/10/24 Associated attestation - Melida Valdes MD [...] a lytic and brought directly to the General Operations Manager. Cardiac catheterization demonstrated multivessel disease with severe [...] who is agreeable Melida Valdes MD Staff Family Court Registrar * Cherelle Fregoso, JOSÉ ANTONIO - 06/09/2024 [...] ischemic cardiomyopathy with HFrEF (~30% EF), prior KS with stents, DM type 2, HTN, HLD, [...] PCP: Mauro Berumen MD PCP phone number: [phone] Date of Admission: 06/02/2024 ( Hospital Day 7 days ) Attending:Melida Valdes MD ID: 69 y.o. male with a h/o DM type 2, HTN, HLD, current smoker (2-3 cigarettes/day), HFrEF with anICD for low EF (~30%), and CAD with prior KS x3 with JENNA placed in [place], Melanoma, PAD, presented to [facility] with 1 hour of retrosternal CP (05/13) while watching TV, found to have STEMI. Active Problems: Active Hospital Problems Diagnosis STEMI (ST elevation myocardial infarction) Acute on chronic heart failure with reduced ejection fraction (HFrEF, <= 40%) Coronary artery disease involving douglas coronary artery of douglas heart without angina pectoris Type 2 diabetes [...] in the last 7068 hours. Invalid input(s): [id number] Recent Labs 06/09/24 0440 06/09/24 0034 06/08/24 2027 06/08/24 1616 06/08/24 1235 06/08/24 0810 06/08/24 0409 06/07/24 2357 06/07/24 2005 06/07/24 1631 06/07/24 1105 06/07/24 1103 POCGLU 131 186 176 159 226* 190 151 188 118 174 221* 250* Heme No results for input(s): LDH, HAPTOGLOBIN, URICACID in the last 168 hours. ABG (Arterial Blood Gas) No results found for: PHART, PO2ART, KUQ8CVD, MGZ6QOS Microbiology: Microbiology Results (Last 30 days) No results found for the last 720 hours. Imaging: Results for orders placed or performed during the hospital encounter of 06/02/24 XR Chest One View (Exam End: 06/03/2024 2:41 AM) Result Value WORKSTATION ID [id number] Impression No radiographically evident acute cardiopulmonary process. Thank you for letting us participate in the care of this patient. If you are a health care provider and have any questions regarding this report, please contact the number below. For patients who have questions please contact the health lawn care professional that requested your imaging first. Cardiac Morphology Function wwo Contrast (Exam End: 06/07/2024 1:10 PM) Result Value WORKSTATION ID [id number] Impression - Findings consistent with an ischemic [...] - Mildly dilated left ventricle size with wynnpvas-jz-umuinxdv decreased LV systolic function. LV ejection fraction [...] who have questions please contact the health lawn care professional that requested your imaging first. Chest wo Contrast (Generic) (Exam End: 06/03/2024 4:33 PM) Result Value WORKSTATION ID [id number] Impression Cardiomegaly. Biventricular ICD leads in place. Thank you for letting us participate in the care of this patient. If you are a health care provider and have any questions regarding this report, please contact the number below. For patients who have questions please contact the health lawn care professional that requested your imaging first. Chest PA & Lateral (Generic) (Exam End: 06/07/2024 7:03 AM) Result Value WORKSTATION ID [id number] Impression Biventricular ICD leads intact and in [...] who have questions please contact the health lawn care professional that requested your imaging first. : Limited echo performed by fellow distribution engineering technologist to assess LV function. Left ventricle is [...] Infusions: heparin (porcine) infusion 1,400 Units/hr (06/08/24 8523) PRN Meds:.glucose 40% oral geL OR dextrose [...] ischemic cardiomyopathy with HFrEF (~30% EF), prior KS with stents, DM type 2, HTN, HLD, [...] CODE Dain Colón MD Cardiology, M1-S2, Pager #[phone] 06/09/24 Associated attestation - Melida Valdes MD [...] a lytic and brought directly to the General Operations Manager. Cardiac catheterization demonstrated multivessel disease with severe [...] ven low EF. Melida Valdes MD Staff Family Court Registrar * Alejandra Baumann, GARNETT ROOM WORKER - 06/08/2024 4:10 PM EST Images from [...] ischemic cardiomyopathy with HFrEF (~30% EF), prior KS with stents, DM type 2, HTN, HLD, [...] to optimize glucose control Alejandra Baumann APRN [facility] Endocrinology Diabetes Management Pager [phone] Weekends please page [phone] 35 minutes were spent over the course [...] PCP: Mauro Berumen MD PCP phone number: [phone] Date of Admission: 06/02/2024 ( Hospital Day 6 days ) Attending:Melida Valdes MD ID: 69 y.o. male with a h/o DM type 2, HTN, HLD, current smoker (2-3 cigarettes/day), HFrEF with anICD for low EF (~30%), and CAD with prior KS x3 with JENNA placed in [place], Melanoma, PAD, presented to [facility] with 1 hour of retrosternal CP (05/13) while watching TV, found to have STEMI. Active Problems: Active Hospital Problems Diagnosis STEMI (ST elevation myocardial infarction) Acute on chronic heart failure with reduced ejection fraction (HFrEF, <= 40%) Coronary artery disease involving douglas coronary artery of douglas heart without angina pectoris Type 2 diabetes [...] in the last 7068 hours. Invalid input(s): [id number] Recent Labs 06/08/24 0409 06/07/24 2357 06/07/24200406/07/24 1631 06/07/24 1105 06/07/24 1103 06/07/24 0745 06/07/24 0425 06/07/24 0008 06/06/24201706/06/24 1539 06/06/24 1339 POCGLU 151 188 118 174 221* 250* 175 127 182 143 147 317* Heme No results for input(s): LDH, HAPTOGLOBIN, URICACID in the last 168 hours. ABG (Arterial Blood Gas) No results found for: PHART, PO2ART, KEL2QAY, EQE8FVZ Microbiology: Microbiology Results (Last 30 days) No results found for the last 720 hours. Imaging: Results for orders placed or performed during the hospital encounter of 06/02/24 XR Chest One View (Exam End: 06/03/2024 2:41 AM) Result Value WORKSTATION ID [id number] Impression No radiographically evident acute cardiopulmonary process. Thank you for letting us participate in the care of this patient. If you are a health care provider and have any questions regarding this report, please contact the number below. For patients who have questions please contact the health lawn care professional that requested your imaging first. Cardiac Morphology Function wwo Contrast (Exam End: 06/07/2024 1:10 PM) Result Value WORKSTATION ID [id number] Impression - Findings consistent with an ischemic [...] - Mildly dilated left ventricle size with edazfsxf-bl-cybckivc decreased LV systolic function. LV ejection fraction [...] who have questions please contact the health lawn care professional that requested your imaging first. Chest wo Contrast (Generic) (Exam End: 06/03/2024 4:33 PM) Result Value WORKSTATION ID [id number] Impression Cardiomegaly. Biventricular ICD leads in place. Thank you for letting us participate in the care of this patient. If you are a health care provider and have any questions regarding this report, please contact the number below. For patients who have questions please contact the health lawn care professional that requested your imaging first. Chest PA & Lateral (Generic) (Exam End: 06/07/2024 7:03 AM) Result Value WORKSTATION ID [id number] Impression Biventricular ICD leads intact and in [...] who have questions please contact the health lawn care professional that requested your imaging first. : Limited echo performed by fellow distribution engineering technologist to assess LV function. Left ventricle is [...] ischemic cardiomyopathy with HFrEF (~30% EF), prior KS with stents, DM type 2, HTN, HLD, [...] CODE Dain Colón MD Cardiology, M1-S2, Pager #[phone] 06/08/24 Associated attestation - Melida Valdes MD [...] a lytic and brought directly to the General Operations Manager. Cardiac catheterization demonstrated multivessel disease with severe [...] Otherwise clinically stable Melida Valdes MD Staff Family Court Registrar * Ross Manuel PA - 06/07/2024 12:00 PM EST Cardiac Electrophysiology CIED Interrogation/Programming Note Asked by MRI staff to evaluate and program Medtronic WELT SOLE LAYER-D to allow for MR imaging. Patient Active Problem List Diagnosis ','STEMI (ST elevation myocardial infarction) Acute on chronic heart failure with reduced ejection fraction (HFrEF, <= 40%) Coronary artery disease involving douglas coronary artery of douglas heart without angina pectoris Type 2 diabetes mellitus Device Data: Medtronic Amplia MRI Quad WELT SOLE LAYER-D [id number] #[id number] 06/16/2019 RA Medtronic 4076 CapSureFix Novus [id number] 06/16/2019 RV Medtronic 6935M [id number] 06/16/2019 LV Medtronic 4298 Attain Performa MRI [id number] 06/16/2019 DDD @ 50/130/130 Adaptive Bi-V and LV VF >188bpm ATP, 35j x6 FVT >188-222bpm burst 2, 35jx5 VT Battery longevity: 2.5yrs; charge time 4s P wave: 2.3mV R wave: >20.0mV Atrial impedance: 458 ohms RV impedance: 646 ohms LV impedance: 722 ohms Atrial threshold: 0.5V @ 0.4ms RV threshold: LV threshold: 1.75V @ 0.4ms AP 0.2% BEHAVIORAL HEALTH ASSOCIATE 97.7% AT/AF 0% Impression and Plan: 1. Interrogated device to determine suitability for MRI 2. Programmed to MRI safe mode - VOO @ 70 3. Scan performed 4. Programming restored to baseline settings 5. Reinterrogated to verify appropriate function and settings 6. Device follow up as previously scheduled Provider: HENOK Meyer EP Consult attending physician: Libby Barton MD EP Consult positional pager #[phone](EPMD) EP Device interrogation positional pager # [phone] * Dain Colón MD - 06/07/2024 7:09 AM EST Images from the original note were not included. . Cardiology Progress Note Patient info: Name: George Mehta : 1955 PCP: Mauro Berumen MD PCP phone number: [phone] Date of Admission: 06/02/2024 ( Hospital Day 5 days ) Attending:Melida Valdes MD ID: 69 y.o. male with a h/o DM type 2, HTN, HLD, current smoker (2-3 cigarettes/day), HFrEF with anICD for low EF (~30%), and CAD with prior KS x3 with JENNA placed in [place], Melanoma, PAD, presented to [facility] with 1 hour of retrosternal CP (05/13) while watching TV, found to have STEMI. Active Problems: Active Hospital Problems Diagnosis STEMI (ST elevation myocardial infarction) Acute on chronic heart failure with reduced ejection fraction (HFrEF, <= 40%) Coronary artery disease involving douglas coronary artery of douglas heart without angina pectoris Type 2 diabetes [...] in the last 7068 hours. Invalid input(s): [id number] Recent Labs 06/07/24 0425 06/07/24 0008 06/06/24 2018 06/06/24 1539 06/06/24 1339 06/06/24 1134 06/06/24 0757 06/06/24 0653 06/05/24 2231 06/05/24 1622 06/05/24 1134 06/05/24 0727 POCGLU 127 182 143 147 317* 264* 195 187 238* 205* 211* 166 Heme No results for input(s): LDH, HAPTOGLOBIN, URICACID in the last 168 hours. ABG (Arterial Blood Gas) No results found for: PHART, PO2ART, TGS4SGO, EJH7KQX Microbiology: Microbiology Results (Last 30 days) No results found for the last 720 hours. Imaging: Results for orders placed or performed during the hospital encounter of 06/02/24 XR Chest One View (Exam End: 06/03/2024 2:41 AM) Result Value WORKSTATION ID [id number] Impression No radiographically evident acute cardiopulmonary process. Thank you for letting us participate in the care of this patient. If you are a health care provider and have any questions regarding this report, please contact the number below. For patients who have questions please contact the health lawn care professional that requested your imaging first. Chest wo Contrast (Generic) (Exam End: 06/03/2024 4:33 PM) Result Value WORKSTATION ID [id number] Impression Cardiomegaly. Biventricular ICD leads in place. Thank you for letting us participate in the care of this patient. If you are a health care provider and have any questions regarding this report, please contact the number below. For patients who have questions please contact the health lawn care professional that requested your imaging first. : Limited echo performed by fellow distribution engineering technologist to assess LV function. Left ventricle is [...] ischemic cardiomyopathy with HFrEF (~30% EF), prior KS with stents, DM type 2, HTN, HLD, [...] Dain Colón MD (PGY-1) Cardiology, M1-S2, Pager #[phone] 06/07/24 Associated attestation - Melida Valdes MD [...] a lytic and brought directly to the General Operations Manager. Cardiac catheterization demonstrated multivessel disease with severe [...] for further guidance. Melida Valdes MD Staff Family Court Registrar * Dain Colón MD - 06/06/2024 7:17 AM EST Images from the original note were not included. . Cardiology Progress Note Patient info: Name: George Mehta : 1955 PCP: Mauro Berumen MD PCP phone number: [phone] Date of Admission: 06/02/2024 ( Hospital Day 4 days ) Attending:Melida Valdes MD ID: 69 y.o. male with a h/o DM type 2, HTN, HLD, current smoker (2-3 cigarettes/day), HFrEF with anICD for low EF (~30%), and CAD with prior KS x3 with JENNA placed in [place], Melanoma, PAD, presented to [facility] with 1 hour of retrosternal CP (05/13) while watching TV, found to have STEMI. Active Problems: Active Hospital Problems Diagnosis STEMI (ST elevation myocardial infarction) Acute on chronic heart failure with reduced ejection fraction (HFrEF, <= 40%) Coronary artery disease involving douglas coronary artery of douglas heart without angina pectoris Type 2 diabetes [...] in the last 7068 hours. Invalid input(s): [id number] Recent Labs 06/06/24 0653 06/05/24 2231 06/05/24 1622 06/05/24 1134 06/05/24 0727 06/04/24 1943 06/04/24 1526 06/04/24 1109 06/04/24 0711 06/03/24 2005 06/03/24 1748 06/03/24 1114 POCGLU 187 238* 205* 211* 166 175 154 188 182 136 191 166 Heme No results for input(s): LDH, HAPTOGLOBIN, URICACID in the last 168 hours. ABG (Arterial Blood Gas) No results found for: PHART, PO2ART, DEZ1BJQ, OSV5SIF Microbiology: Microbiology Results (Last 30 days) No results found for the last 720 hours. Imaging: Results for orders placed or performed during the hospital encounter of 06/02/24 XR Chest One View (Exam End: 06/03/2024 2:41 AM) Result Value WORKSTATION ID [id number] Impression No radiographically evident acute cardiopulmonary process. Thank you for letting us participate in the care of this patient. If you are a health care provider and have any questions regarding this report, please contact the number below. For patients who have questions please contact the health lawn care professional that requested your imaging first. Chest wo Contrast (Generic) (Exam End: 06/03/2024 4:33 PM) Result Value WORKSTATION ID [id number] Impression Cardiomegaly. Biventricular ICD leads in place. Thank you for letting us participate in the care of this patient. If you are a health care provider and have any questions regarding this report, please contact the number below. For patients who have questions please contact the health lawn care professional that requested your imaging first. : Limited echo performed by fellow distribution engineering technologist to assess LV function. Left ventricle is [...] ischemic cardiomyopathy with HFrEF (~30% EF), prior KS with stents, DM type 2, HTN, HLD, [...] Dain Colón MD (PGY-1) Cardiology, M1-S2, Pager #[phone] 06/06/24 Associated attestation - Melida Valdes MD [...] a lytic and brought directly to the General Operations Manager. Cardiac catheterization demonstrated multivessel disease with severe [...] management. Help appreciated Melida Valdes MD Staff Family Court Registrar * Frederick Dunn MD - 06/05/2024 8:13 AM EDT Images from the original note were not included. . Cardiology Progress Note Patient info: Name: George Mehta : 1955 PCP: Mauro Berumen MD PCP phone number: [phone] Date of Admission: 06/02/2024 ( Hospital Day 3 days ) Attending:Melida Valdes MD ID: 69 y.o. male with a h/o DM type 2, HTN, HLD, current smoker (2-3 cigarettes/day), HFrEF with anICD for low EF (~30%), and CAD with prior KS x3 with JENNA placed in [place], Melanoma, PAD, presented to [facility] with 1 hour of retrosternal CP [...] in the last 7068 hours. Invalid input(s): [id number] Recent Labs 06/05/24 1134 06/05/24 0727 06/04/24 1943 06/04/24 1526 06/04/24 1109 06/04/24 0711 06/03/24 2005 06/03/24 1748 06/03/24 1114 06/03/24 0754 06/02/24 2331 POCGLU 211* 166 175 154 188 182 136 191 166 195 156 Heme No results for input(s): LDH, HAPTOGLOBIN, URICACID in the last 168 hours. ABG (Arterial Blood Gas) No results found for: PHART, PO2ART, WVR8MDJ, KNH3XEG Microbiology: Microbiology Results (Last 30 days) No results found for the last 720 hours. Imaging: Results for orders placed or performed during the hospital encounter of 06/02/24 XR Chest One View (Exam End: 06/03/2024 2:41 AM) Result Value WORKSTATION ID [id number] Impression No radiographically evident acute cardiopulmonary process. Thank you for letting us participate in the care of this patient. If you are a health care provider and have any questions regarding this report, please contact the number below. For patients who have questions please contact the health lawn care professional that requested your imaging first. Chest wo Contrast (Generic) (Exam End: 06/03/2024 4:33 PM) Result Value WORKSTATION ID [id number] Impression Cardiomegaly. Biventricular ICD leads in place. Thank you for letting us participate in the care of this patient. If you are a health care provider and have any questions regarding this report, please contact the number below. For patients who have questions please contact the health lawn care professional that requested your imaging first. : Limited echo performed by fellow distribution engineering technologist to assess LV function. Left ventricle is [...] ischemic cardiomyopathy with HFrEF (~30% EF), prior KS with stents, DM type 2, HTN, HLD, [...] all the information they need regarding the WELT SOLE LAYER-D.Plan for MRI tomorrow. Starting 40 mg IV [...] a lytic and brought directly to the General Operations Manager. Cardiac catheterization demonstrated multivessel disease with severe [...] maintenance of 40. Melida Valdes MD Staff Family Court Registrar * Migel Javier RN - 06/05/2024 6:21 AM EDT Implanted device record scanned into: Chart Review-->Media-->External Cardiology-->03/25/2024. Medtronic Amplia MRI Quad CRTD [id number] Serial #: [id number] DDD mode A + Bi/V Rates 50-130 Migel Javier RN * Dain Colón MD - 06/04/2024 11:16 AM EDT Implant Records Requested Type: WELT SOLE LAYER-D Ripening Room Operator: Medtronic Product: [id number] Amplia MRI MRI compatibility: Compatible for 1.5-3 T Model #: [id number] Placed at: [employer], [place] Records requested for MRI: 1. Operative report 2. Implant log I requested that these records be sent to our MRI department, Dain Colón MD 06/04/24 11:58 AM * Dain Colón MD - 06/04/2024 6:57 AM EDT Images from the original note were not included. . Cardiology Progress Note Patient info: Name: George Mehta : 1955 PCP: Mauro Berumen MD PCP phone number: [phone] Date of Admission: 06/02/2024 ( Hospital Day 2 days ) Attending:Delroy Fofana MD ID: 69 y.o. male with a h/o DM type 2, HTN, HLD, current smoker (2-3 cigarettes/day), HFrEF with anICD for low EF (~30%), and CAD with prior KS x3 with JENNA placed in [place], Melanoma, PAD, presented to [facility] with 1 hour of retrosternal CP [...] in the last 7068 hours. Invalid input(s): UULEBLDFWNE5O Recent Labs 06/03/24 2005 06/03/24 1748 06/03/24 1114 06/03/24 0754 06/02/24 2331 POCGLU 136 191 166 195 156 Heme No results for input(s): LDH, HAPTOGLOBIN, URICACID in the last 168 hours. ABG (Arterial Blood Gas) No results found for: PHART, PO2ART, VXG7QUH, LLY5IMK Microbiology: Microbiology Results (Last 30 days) No results found for the last 720 hours. Imaging: Results for orders placed or performed during the hospital encounter of 06/02/24 XR Chest One View (Exam End: 06/03/2024 2:41 AM) Result Value WORKSTATION ID [id number] Impression No radiographically evident acute cardiopulmonary process. Thank you for letting us participate in the care of this patient. If you are a health care provider and have any questions regarding this report, please contact the number below. For patients who have questions please contact the health lawn care professional that requested your imaging first. Chest wo Contrast (Generic) (Exam End: 06/03/2024 4:33 PM) Result Value WORKSTATION ID [id number] Impression Cardiomegaly. Biventricular ICD leads in place. Thank you for letting us participate in the care of this patient. If you are a health care provider and have any questions regarding this report, please contact the number below. For patients who have questions please contact the health lawn care professional that requested your imaging first. : Limited echo performed by fellow distribution engineering technologist to assess LV function. Left ventricle is [...] ischemic cardiomyopathy with HFrEF (~30% EF), prior KS with stents, DM type 2, HTN, HLD, [...] -Lasix 40 mg IV given in the lab assistant; assess diuretic response, consider re-dosing -Continue carvedilol; [...] a lytic and brought directly to the General Operations Manager. Cardiac catheterization demonstrated multivessel disease with severe [...] Friday -Diuresis with Jovanni Valdes MD Staff Family Court Registrar * Fatmata Mcallister, PT - 06/03/2024 3:29 [...] vs PCI) Fatmata Mcallister PT, MSPT Pager [phone] Inpatient Physical Therapy * Marlin Gómez MD [...] Marlin Gómez MD Cardiology S2, Pager # [phone] 06/03/2024 * Delroy Fofana MD - 06/03/2024 7:16 AM EDT Images from the original note were not included. . Cardiology Progress Note Patient info: Name: George Mehta : 1955 PCP: Mauro Berumen MD PCP phone number: [phone] Date of Admission: 06/02/2024 ( Hospital Day 1 day ) Attending:Nuha Rojo MD ID: 69 y.o. male with a h/o DM type 2, HTN, HLD, current smoker (2-3 cigarettes/day), HFrEF with anICD for low EF (~30%), and CAD with prior KS x3 with JENNA placed in [place], Melanoma, PAD, presented to [facility] with 1 hour of retrosternal CP [...] in the last 7068 hours. Invalid input(s): ZCIINNULYUY8G Recent Labs 06/02/24 2331 POCGLU 156 Heme No results for input(s): LDH, HAPTOGLOBIN, URICACID in the last 168 hours. ABG (Arterial Blood Gas) No results found for: PHART, PO2ART, CLX8HKP, AFO7AWA Microbiology: Microbiology Results (Last 30 days) No results found for the last 720 hours. Imaging: Results for orders placed or performed during the hospital encounter of 06/02/24 XR Chest One View (Exam End: 06/03/2024 2:41 AM) Result Value WORKSTATION ID [id number] Impression No radiographically evident acute cardiopulmonary process. Thank you for letting us participate in the care of this patient. If you are a health care provider and have any questions regarding this report, please contact the number below. For patients who have questions please contact the health lawn care professional that requested your imaging first. : Limited echo performed by fellow distribution engineering technologist to assess LV function. Left ventricle is [...] ischemic cardiomyopathy with HFrEF (~30% EF), prior KS with stents, DM type 2, HTN, HLD, [...] -Lasix 40 mg IV given in the lab assistant; assess diuretic response, consider re-dosing -Continue carvedilol; [...] of care per Dain Colón MD (medical assistant cardiology). Please refer to his note above for details. Very pleasant 69 year old male but he is obese, diabetic, and he is a SMOKER with known prior CAD and moderately reduced LVEF (30%). He has a pacer. History of surgical resection of melanoma on his head. The patient was transferred overnight to [facility] as a STEMI. He was treated initially with a lytic (TNK) and brought directly to the lab assistant. The cath demonstrated 3VD with diffuse disease [...] - 06/13/2024 10:58 AM EST ICU Blue (#[id number]) H&P Patient info: Name: George Mehta : 1955 PCP: Mauro Berumen MD PCP phone number: [phone] Date of Admission: 06/02/2024 ( Hospital Day 11 days ) Attending:Haja Byrnes MD ID: George Mehta is a 69 y.o. male with a h/o DM type 2, HTN, HLD, current smoker (2-3 cigarettes/day), HFrEF with an ICD for low EF (~30%), and CAD with prior KS x3 with JENNA placed in [place], Melanoma, PAD, presented to [facility] with 1 hour of retrosternal CP (10/10) while watching TV, foundto have STEMI. HPI: Shahnaz Scanlon H&P 06/02 69 y.o. male with a h/o DM type 2, HTN, HLD, current smoker (2-3 cigarettes/day), HFrEF with an ICD for low EF (~30%), and CAD with prior KS x3 with JENNA placed in [place], Melanoma, PAD, presented to [facility] with 1 hour of retrosternal CP (05/13) while watching TV. CP was non-radiating, not asso ciated with diaphoresis, nausea, or SOB. Denies orthopnea, MARTÍNEZ, palpitations, or LE edema. ECG showed findings consistent with anterior STEMI. He received TNK and was transferred for PCI. Coronary angiography showed a small, non-dominant RCA with nzuu-vd-nrpqszlh disease and a dominant,heavily calcified left system with prior stents in the LAD and OM. The LM bifurcates into the LAD and LCX, both heavily calcified. The proximal LCX has a 75% calcified, aneurysmal lesion, and an 80% calcified lesion distally before a large OM2. 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 [...] 40 mg Lasix was administered in the lab assistant. Cardiac surgery was consulted and plan for [...] Blood Gas) No results for input(s): PHART, BFX0QZW, PO2ART, CNV7WVI, LACTATEVEN, KOZ8BPP, PFRATIOART2 in the last 168 hours. VBG (Venous Blood Gas) Recent Labs 06/10/24 1742 PHVEN 7.34 PO2VEN 24 MBI1OQF 27.4 Mixed Venous Sat No results for input(s): P5OLLD4 in the last 168 hours. Intake/Output Summary [...] in the last 7067 hours. Invalid input(s): NCWCPDVCKPO7C Recent Labs 06/13/24 0741 06/13/24 0325 06/12/24 2353 06/12/24 1932 06/12/24 1541 06/12/24 1121 06/12/24 0800 06/12/24 0425 06/11/24 2356 06/11/24 2025 06/11/24 1624 06/11/24 1108 POCGLU 126 99 141 158 113 207* 169 132 135 210* 81 233* Heme No results for input(s): LDH, HAPTOGLOBIN, URICACID in the last 168 hours. ABG (Arterial Blood Gas) No results for input(s): PHART, KXE4KRE, PO2ART, DYJ7TRT, LACTATEVEN, ZXW1APB, PFRATIOART2 in the last 168 hours. VBG (Venous Blood Gas) Recent Labs 06/10/24 1742 PHVEN 7.34 PO2VEN 24 VOJ6YJW 27.4 Mixed Venous Sat No results for input(s): U4IEKN0 in the last 168 hours. Microbiology: Microbiology Results (Last 30 days) No results found for the last 720 hours. Assessment & Plan: George Mehta is a 69 y.o. male with CAD, ischemic cardiomyopathy with HFrEF (~30% EF), prior KS with stents, DM type 2, HTN, HLD, [...] Plan for CABG 06/14. Patient NPO at [place]. #ASCVD / STEMI: -Holding Plavix; continue ASA [...] (Give Meds) Daily Healthy Menu Choices/Cardiac diet ([facility]-Diet) DVT Prophylaxis: SCD GI Prophylaxis: None Dispo: [...] TUD (abstinent since admission), ASCVD with multipleprior KS and PCIs, ICM/HFrEF LVEF 30% (all territories [...] is in the chart Rebeca Prado MD Chocolatier PGY6 [id number] * Shahnaz Scanlon MD - [...] low EF (~30%), and CAD with prior KS x3 with JENNA placed in [place], Melanoma, PAD, presented to [facility] with 1 hour of retrosternal CP (05/13) while watching TV. CP was non-radiating, not assoc iated with diaphoresis, nausea, or SOB. Denies orthopnea, MARTÍNEZ, palpitations, or LE edema. ECG showed findings consistent with anterior STEMI. He received TNK and was transferred for PCI. Coronary angiography showed a small, non-dominant RCA with yipk-jk-exnhbfiw disease and a dominant,heavily calcified left system with prior stents in the LAD and OM. The LM bifurcates into the LAD and LCX, both heavily calcified. The proximal LCX has a 75% calcified, aneurysmal lesion, and an 80% calcified lesion distally before a large OM2. 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 [...] 40 mg Lasix was administered in the lab assistant. Past Medical History: As per HPI Significant [...] normal. Behavior: Behavior normal. Diagnostics: [facility] 06/02/2024 Coronary angiography revealed small non dominant [...] ischemic cardiomyopathy with HFrEF (~30% EF), prior KS with stents, DM type 2, HTN, HLD, [...] -Lasix 40 mg IV given in the lab assistant; assess diuretic response. -Continue carvedilol; hold Entresto Adjust diuretics as needed based on response -Follow TTE and CXR #T2DM: At home patient is on 50 Units Tresiba and novolog with meals ISS, and long-acting insulin Hold Jardiance and metformin Follow A1C #Depression: Continue escitalopram. Monitoring and Supportive Care: Close monitoring daily labs, renal function, and electrolytes, especially with diuretics. Provider: Shhanaz Scanlon MD Provider #: [id number] 06/03/2024 documented [...] & Follow-up Care: Contact information for follow-up [facility] [address] [facility] [address] Cardiac Rehab, [address] [address] JAMIE GRAMAJO confirmed with [facility] that they [...] Payor: AARP MANAGED MEDICARE / Plan: AARP [facility] MANAGED MEDICARE COMPLETE / Product [...] Roberts RN - 06/18/2024 10:50 AM EST [facility] George Mehta was seen today regarding participation in the outpatient Phase 2 Cardiac Rehabilitation at [facility]. The patient agrees to a referral [...] w/ his , Mandy, and 2 dogs Zlueika & Kaley). Current Living Arrangements: home/apartment/condo. Accessibility [...] Agency/Support Group Needs: Homecare agency Agency Choices: [facility] Home Health Services: Medication checks, Registered Nurse, Physical Therapy Agency Referrals: pending clinical course and PT/OT recs [facility] [address] [facility] [address] PHONE: [phone] FAX: [phone] Transportation: family or friend will provide Barriers [...] MEDICARE Payor: AARP MANAGED MEDICARE / Plan: [facility] MANA[facility]ED MEDIC[facility] COMPLETE / Product Type: *No Product type* / Secondary Insurance: N/A Plan for discharge is: Home w/ Services Outpatient Agency/Support Group Needs: Homecare agency Agency Choices: [facility]: Medication checks, Registered Nurse, Physical Therapy Agency Referrals: pending clinical course and PT/OT recs [facility] [address] [place] [address] PHONE: [phone] FAX: [phone] Transportation: family or friend will provide Barriers [...] Loja MD - 06/14/2024 8:48 AM EST [facility] Operative Note Patient Name: George Mehta : [id number] MR#: [id number] Case Date: 06/14/2024 Surgeon: Surgeons and Role: * Bobby Loja MD - Primary * Rashi Bass PA - Physician Emergency Room Rn Preoperative diagnosis: CAD, MARIALUISA flickering mass on [...] area. The patient was transported to the [facility] in a critical but stable condition [...] procedures today and tomorrow. Report called to [facility] - all belongings with patient. PLAN MOVING FORWARD: laboratory cureman and transfer to [facility]. INDIVIDUALIZED FALL PREVENTION INTERVENTIONS: Assistance [level [...] MEDICARE Payor: AARP MANAGED MEDICARE / Plan: [facility] MANAGED MEDICARE COMPLETE / Product Type: *No Product type* / Secondary Insurance: N/A Plan for discharge is: Home w/ Services Outpatient Agency/Support Group Needs: Homecare agency, Agency Choices: [facility] Home Health Services: Medication checks, Registered Nurse, Physical Therapy Agency Referrals: [facility] [address] [address] RN / PT Routed 06/10 Transportation: family [...] with home health services when medically ready. channel development manager/Door Clamper will continue to follow patient???s progress and remain available if situation changes for coordination of care, psychosocial support and/or discharge planning. Anticipated Date of Discharge: 06/18/2024 Mariia Monetro RN CM Extension [phone] * Plan of Care - Migel Javier [...] a planned discussion with him and Dr. Bboby Loja was tentative this afternoon. PLAN MOVING [...] Payor: AARP MANAGED MEDICARE / Plan: AARP [facility] MANAGED MEDICARE COMPLETE / Product [...] consult for high risk PCI vs CABG channel development manager/Door Clamper will continue to follow patient???s progress and remain available if situation changes for coordination of care, psychosocial support and/or discharge planning. 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 Diabetes History: George Mehta has [...] Breakfast- varies - eggs with khoury or maltese muffin Lunch- turkey sandwich Supper- meat and [...] Infusions: heparin (porcine) infusion 1,400 Units/hr (06/06/24 9029) PRN: insulin lispro, potassium chloride ER OR [...] ischemic cardiomyopathy with HFrEF (~30% EF), prior KS with stents, DM type 2, HTN, HLD, [...] Baumann APRN Endocrinology Diabetes Management Service Pager: [phone] Weekends please page [phone] 80 minute visit was spent in counseling [...] mid to high 80's. PLAN MOVING FORWARD: [facility] draws w/ AM labs. Continue with [...] PM EDT Cardiac Surgery Consult Note George eMhta is seen at the request of Dr. Fofana for the evaluation of multivessel CAD. HPI: George Mehta is a 69 y.o. male with a PMHx of previous KS s/p PCI x3, ICM/HFrEF (LVEF 30%) s/p ICD, DMII, HTN, HLD, remote melanoma, and smoker who presented to [facility] last night via EMS after developing acute, severe chest pain while watching TV. Patient was ruled in for STEMI, given TNK, ASA, plavix, heparin gtt, and sent to [facility] for coronary angiography. LHC demonstrated severely calcified left coronary system with notable LCx 75/80% lesions and HYDRO PLANT TECHNICIAN OM1 with ISR with collateral retrograde filling, [...] elevation myocardial infarction) Past Medical History: previous KS s/p PCI x3 ICM/HFrEF (LVEF 30%) s/p [...] is large. OM1 appears to be a HYDRO PLANT TECHNICIAN, with in stentrestenosis and fills retrograde via [...] admitted with STEMI s/p TNK, [facility] showing multivessel CAD including ISR, no culprit [...] to our service. Signed: Paula Treviño PA-C [facility] Section of Cardiac Surgery Date: 06/03/2024 [...] surrogate would be surrogate decision maker per [place] decision making law. (Only good for 180 days) Any patient receiving care in [place] must abide by [place] law. The hierarchy for surrogate decision making [...] (i) The agent with financial power of estate planning attorney or a conservator appointed in accordance [...] were you homeless or living in a group home (including now)?: No In the past 12 months has the avocarrot, gas, oil, or water [employer] threatened to shut off services in your [...] the bathroom) Home Address confirmed as: [address] [place] [address] [address] [facility] [address] Social & Family Supports: All names listed [...] Pertinent/Service Specific Information: Health/Prescription Coverage: Primary Insurance: [facility] MANAGED MEDICARE Payor: [facility] MANAGED MEDICARE / Plan: [facility] MANAGED MEDICARE COMPLETE / Product Type: *No Product type* / Secondary Insurance: N/A ; Prescription Coverage: Yes Preferred Pharmacy: [id number] - [place], [place] - [address] [facility] [address] [facility] [address] [place] Status: Patient is a : No Primary Care Provider confirmed: Mauro Berumen MD [phone] Patient/Caregiver Goals of Treatment: Potential Needs for [...] care as indicated. [facility], [phone]. [phone] * Brief Op Note - Angeles Gaxiola PA - 06/03/2024 12:23 AM EDT Preliminary Cardiac Catheterization Procedure Note: Patient Name: George Mehta : [id number] MR#: [id number] Case Date: 06/02/2024 - 06/03/2024 [place]: Surgeons and Role: * Nuha Shen MD - Primary * Angeles Gaxiola PA - Physician Emergency Room Rn Preoperative diagnosis: STEMI Postoperative diagnosis: * STEMI * Procedure(s) performed: RRA access [facility] Coronary angiogram IVUS LM/LAD/LCX Access: 6 Fr RRA A time-out was conducted prior to the start of the procedure to verify the correct patient and procedure, procedure location, and all relevant critical information. Preliminary findings: 69 year old current smoker (1-2 cigarette's per day), DM type 2, hypertension, dyslipidemia, ICD for HFrEF/low EF (~30%), CAD with prior KS and 3 stents historically (in [place]) who presented to [facility] with 1 hour of rest chest [...] is large. OM1 appears to be a [employer], with in stentrestenosis and fills retrograde via [...] receive 40 mg of lasix in the lab assistant. Recommendations: surgical consult for possible open revascularization; [...] Vascular Unit Level 3 [place] [address] Jim Benites MD [facility] [place] [address] Scheduled Orders Name Type Priority Associated Diagnoses [...] 7:20 AM EST Coronary artery disease involving douglas coronary artery of douglas heart without angina pectoris POC, GLUCOSE Routine [...] 199 mg/dL 06/21/2024 3:51 AM EST [facility] Comment:Supplemental ranges: <140 mg/dL before meals <180 mg/dL all other times of the day. Blood CAPILLARY BLOOD / Unknown 06/21/2024 3:51 AM EST 06/21/2024 3:51 AM EST Bobby Loja MD POINT OF CARE TEST O RDERABLES [facility] [place] [address] * (ABNORMAL) Basic Metabolic Panel (06/21/2024 2:09 AM EST) Glucose 169 65 - 199 mg/dL 06/21/2024 3:10 AM EST [facility] Comment:Glucose Concentratio n >=200 mg/dL plus symptoms is consistent with Diabetes Mellitus. Blood Urea Nitrogen 27(H) 10 - 20 mg/dL 06/21/2024 3:10 [address] [facility] Creatinine 1.24 0.80 - 1.50 [...] EST 06/21/2024 2:37 AM EST Keila Dayan GARNETT ROOM WORKER CHEMISTRY ORDERABL ES [facility] [place] [address] * POC, GLUCOSE (06/21/2024 12:04 AM EST) Glucometer, POC 157 65 - 199 mg/dL 06/21/2024 12:04 AM EST [facility] Comment:Supplemental ranges: <140 mg/dL before meals <180 mg/dL all other times of the day. Blood CAPILLARY BLOOD / Unknown 06/21/2024 12:04 AM EST 06/21/2024 12:04 AM EST Bobby Loja MD POINT OF CARE TEST O NIKA Performing Organization Address City/[facility]/ZIP Co de Phone Number [facility] [place] [address] * POC, GLUCOSE (06/20/2024 11:14 PM EST) Glucometer, POC 67 65 - 199 mg/dL 06/20/2024 11:14 PM EST [facility] Comment:Supplemental ranges: <140 mg/dL before meals <180 mg/dL all other times of the day. Blood CAPILLARY BLOOD / Unknown 06/20/2024 11:14 PM EST 06/20/2024 11:14 PM EST Bobby Loja MD POINT OF CARE TEST O NIKA Performing Organization Address City/[facility]/ZIP Co de Phone Number [facility] [place] [address] * POC, GLUCOSE (06/20/2024 7:16 PM EST) Glucometer, POC 132 65 - 199 mg/dL 06/20/2024 7:16 PM EST [facility] Comment:Supplemental ranges: <140 mg/dL before meals <180 mg/dL all other times of the day. Blood CAPILLARY BLOOD / Unknown 06/20/2024 7:16 PM EST 06/20/2024 7:16 PM EST Bobby Loja MD POINT OF CARE TEST O NIKA Performing Organization Address [facility] Co de Phone Number [facility] [place] [address] * POC, GLUCOSE (06/20/2024 3:39 PM EST) Glucometer, POC 124 65 - 199 mg/dL 06/20/2024 3:40 PM EST [facility] Comment:Supplemental ranges: <140 mg/dL before meals <180 mg/dL all other times of the day. Blood CAPILLARY BLOOD / Unknown 06/20/2024 3:39 PM EST 06/20/2024 3:40 PM EST Bobby Loja MD POINT OF CARE TEST Abimael MAHER Performing Organization Address [facility] de Phone Number [facility] [place] [address] * POC, GLUCOSE (06/20/2024 12:02 PM EST) Glucometer, POC 173 65 - 199 mg/dL 06/20/2024 12:03 PM EST [facility] Comment:Supplemental ranges: <140 mg/dL before meals <180 mg/dL all other times of the day. Blood CAPILLARY BLOOD / Unknown 06/20/2024 12:02 PM EST 06/20/2024 12:03 PM EST Bobby Loja MD POINT OF CARE TEST O NIKA Performing Organization Address [facility] Co de Phone Number [facility] [place] [address] * POC, GLUCOSE (06/20/2024 7:10 AM EST) Glucometer, POC 130 65 - 199 mg/dL 06/20/2024 7:11 AM EST [facility] Comment:Supplemental ranges: <140 mg/dL before meals <180 mg/dL all other times of the day. Blood CAPILLARY BLOOD / Unknown 06/20/2024 7:10 AM EST 06/20/2024 7:11 AM EST Bobby Loja MD POINT OF CARE TEST O RDERABLES [facility] [place] [address] * (ABNORMAL) Basic Metabolic Panel (06/20/2024 2:28 [...] 56 mL/min/1. 73 m?? 06/20/2024 3:06 [address] [facility] Comment: [...] APRN CHEMISTRY ORDERABL ES Performing Organization Address [facility] Co de Phone Number [facility] [place] [address] * POC, GLUCOSE (06/20/2024 12:32 AM EST) Glucometer, POC 86 65 - 199 mg/dL 06/20/2024 12:32 AM EST [facility] Comment:Supplemental ranges: <140 mg/dL before meals <180 mg/dL all other times of the day. Blood CAPILLARY BLOOD / Unknown 06/20/2024 12:32 AM EST 06/20/2024 12:32 AM EST Bobby Loja MD POINT OF CARE TEST O NIKA Performing Organization Address [facility] Co de Phone Number [facility] [place] [address] * (ABNORMAL) POC, GLUCOSE (06/20/2024 12:02 AM EST) Glucometer, POC 59(L) 65 - 199 mg/dL 06/20/2024 12:02 AM EST [facility] Comment:Supplemental ranges: <140 mg/dL before meals <180 mg/dL all other times of the day. Blood CAPILLARY BLOOD / Unknown 06/20/2024 12:02 AM EST 06/20/2024 12:03 AM EST Bobby Loja MD POINT OF CARE TEST O NIKA [facility] [place] [address] * POC, GLUCOSE (06/19/2024 8:15 PM EST) Glucometer, POC 131 65 - 199 mg/dL 06/19/2024 8:15 PM EST [facility] Comment:Supplemental ranges: <140 mg/dL before meals <180 mg/dL all other times of the day. Blood CAPILLARY BLOOD / Unknown 06/19/2024 8:15 PM EST 06/19/2024 8:15 PM EST Bobby Loja MD POINT OF CARE TEST O NIKA Performing Organization Address City/[facility]/ZIP Co de Phone Number [facility] [place] [address] * POC, GLUCOSE (06/19/2024 6:01 PM EST) Glucometer, POC 129 65 - 199 mg/dL 06/19/2024 6:01 PM EST [facility] Comment:Supplemental ranges: <140 mg/dL before meals <180 mg/dL all other times of the day. Blood CAPILLARY BLOOD / Unknown 06/19/2024 6:01 PM EST 06/19/2024 6:02 PM EST Bobby Loja MD POINT OF CARE TEST Abimael MAHER Performing Organization Address City/[facility]/ZIP Co de Phone Number [facility] [place] [address] * POC, GLUCOSE (06/19/2024 4:51 PM EST) Glucometer, POC 155 65 - 199 mg/dL 06/19/2024 4:51 PM EST [facility] Comment:Supplemental ranges: <140 mg/dL before meals <180 mg/dL all other times of the day. Blood CAPILLARY BLOOD / Unknown 06/19/2024 4:51 PM EST 06/19/2024 4:51 PM EST Bobby Loja MD POINT OF CARE TEST O NIKA Performing Organization Address [facility] Co de Phone Number [facility] [place] [address] * POC, GLUCOSE (06/19/2024 12:37 PM EST) Glucometer, POC 136 65 - 199 mg/dL 06/19/2024 12:37 PM EST [facility] Comment:Supplemental ranges: <140 mg/dL before meals <180 mg/dL all other times of the day. Blood CAPILLARY BLOOD / Unknown 06/19/2024 12:37 PM EST 06/19/2024 12:37 PM EST Bobby Loja MD POINT OF CARE TEST Abimael MAHER Performing Organization Address [facility] Co de Phone Number [facility] [place] [address] * POC, GLUCOSE (06/19/2024 11:20 AM EST) Glucometer, POC 185 65 - 199 mg/dL 06/19/2024 11:21 AM EST [facility] Comment:Supplemental ranges: <140 mg/dL before meals <180 mg/dL all other times of the day. Blood CAPILLARY BLOOD / Unknown 06/19/2024 11:20 AM EST 06/19/2024 11:21 AM EST Bobby Loja MD POINT OF CARE TEST O NIKA Performing Organization Address City/[facility] Co de Phone Number [facility] [place] [address] * POC, GLUCOSE (06/19/2024 7:21 AM EST) Glucometer, POC 125 65 - 199 mg/dL 06/19/2024 7:21 AM EST [facility] Comment:Supplemental ranges: <140 mg/dL before meals <180 mg/dL all other times of the day. Blood CAPILLARY BLOOD / Unknown 06/19/2024 7:21 AM EST 06/19/2024 7:22 AM EST Bobby Loja MD POINT OF CARE TEST O NIKA Performing Organization Address [facility] de Phone Number [facility] [place] [address] * POC, GLUCOSE (06/19/2024 4:52 AM EST) Glucometer, POC 125 65 - 199 mg/dL 06/19/2024 4:52 AM EST [facility] Comment:Supplemental ranges: <140 mg/dL before meals <180 mg/dL all other times of the day. Blood CAPILLARY BLOOD / Unknown 06/19/2024 4:52 AM EST 06/19/2024 4:52 AM EST Bobby Loja MD POINT OF CARE TEST O NIKA Performing Organization Address [facility] de Phone Number [facility] [place] [address] * POC, GLUCOSE (06/19/2024 4:13 AM EST) Glucometer, POC 67 65 - 199 mg/dL 06/19/2024 4:13 AM EST [facility] Comment:Supplemental ranges: <140 mg/dL before meals <180 mg/dL all other times of the day. Blood CAPILLARY BLOOD / Unknown 06/19/2024 4:13 AM EST 06/19/2024 4:13 AM EST Bobby Loja MD POINT OF CARE TEST O NIKA Performing Organization Address [facility] Co de Phone Number [facility] [place] [address] * (ABNORMAL) POC, GLUCOSE (06/19/2024 3:48 AM EST) Glucometer, POC 51(LLL) 65 - 199 mg/dL 06/19/2024 3:48 AM EST [facility] Comment:Supplemental ranges: <140 mg/dL before meals <180 mg/dL all other times of the day. Blood CAPILLARY BLOOD / Unknown 06/19/2024 3:48 AM EST 06/19/2024 3:48 AM EST Bobby Loja MD POINT OF CARE TEST O RDERABLES [facility] [place] [address] * (ABNORMAL) Basic Metabolic Panel (06/19/2024 3:44 AM EST) Glucose 53(LLL) 65 - 199 mg/dL 06/19/2024 4:48 AM EST [facility] Comment:Glucose Concentratio n >=200 mg/dL [...] 8.5 - 10.5 mg/dL 06/19/2024 4:[address] [facility] Est Glomerular Filtration Rate - Male 61 mL/min/1. 73 m?? 06/19/2024 4:48 AM [facility] Comment: [...] APRN CHEMISTRY ORDERABL ES Performing Organization Address [facility] Co de Phone Number [facility] [place] [address] * POC, GLUCOSE (06/19/2024 12:23 AM EST) Glucometer, POC 82 65 - 199 mg/dL 06/19/2024 12:23 AM EST [facility] Comment:Supplemental ranges: <140 mg/dL before meals <180 mg/dL all other times of the day. Blood CAPILLARY BLOOD / Unknown 06/19/2024 12:23 AM EST 06/19/2024 12:23 AM EST Bobby Loja MD POINT OF CARE TEST O RDERABLES Performing Organization Address City/[facility]/ZIP Co de Phone Number [facility] [place] [address] * POC, GLUCOSE (06/18/2024 11:08 PM EST) Glucometer, POC 73 65 - 199 mg/dL 06/18/2024 11:08 PM EST [facility] Comment:Supplemental ranges: <140 mg/dL before meals <180 mg/dL all other times of the day. Blood CAPILLARY BLOOD / Unknown 06/18/2024 11:08 PM EST 06/18/2024 11:08 PM EST Bobby Loja MD POINT OF CARE TEST O NIKA Performing Organization Address [facility] Co de Phone Number [facility] [place] [address] * POC, GLUCOSE (06/18/2024 7:32 PM EST) Glucometer, POC 167 65 - 199 mg/dL 06/18/2024 7:32 PM EST [facility] Comment:Supplemental ranges: <140 mg/dL before meals <180 mg/dL all other times of the day. Blood CAPILLARY BLOOD / Unknown 06/18/2024 7:32 PM EST 06/18/2024 7:32 PM EST Bobby Loja MD POINT OF CARE TEST Abimael MAHER Performing Organization Address [facility] de Phone Number [facility] [place] [address] * POC, GLUCOSE (06/18/2024 6:08 PM EST) Glucometer, POC 140 65 - 199 mg/dL 06/18/2024 6:09 PM EST [facility] Comment:Supplemental ranges: <140 mg/dL before meals <180 mg/dL all other times of the day. Blood CAPILLARY BLOOD / Unknown 06/18/2024 6:08 PM EST 06/18/2024 6:09 PM EST Bobby Loja MD POINT OF CARE TEST O NIKA Performing Organization Address [facility] Co de Phone Number [facility] [place] [address] * POC, GLUCOSE (06/18/2024 4:17 PM EST) Glucometer, POC 144 65 - 199 mg/dL 06/18/2024 4:17 PM EST [facility] Comment:Supplemental ranges: <140 mg/dL before meals <180 mg/dL all other times of the day. Blood CAPILLARY BLOOD / Unknown 06/18/2024 4:17 PM EST 06/18/2024 4:17 PM EST Bobby Loja MD POINT OF CARE TEST O NIKA Performing Organization Address [facility] Co de Phone Number [facility] [place] [address] * POC, GLUCOSE (06/18/2024 12:09 PM EST) Glucometer, POC 180 65 - 199 mg/dL 06/18/2024 12:09 PM EST [facility] Comment:Supplemental ranges: <140 mg/dL before meals <180 mg/dL all other times of the day. Blood CAPILLARY BLOOD / Unknown 06/18/2024 12:09 PM EST 06/18/2024 12:09 PM EST Bobyb Loja MD POINT OF CARE TEST O NIKA Performing Organization Address [facility] de Phone Number [facility] [place] [address] * POC, GLUCOSE (06/18/2024 7:49 AM EST) Glucometer, POC 125 65 - 199 mg/dL 06/18/2024 7:50 AM EST [facility] Comment:Supplemental ranges: <140 mg/dL before meals <180 mg/dL all other times of the day. Blood CAPILLARY BLOOD / Unknown 06/18/2024 7:49 AM EST 06/18/2024 7:50 AM EST Bobby Loja MD POINT OF CARE TEST O NIKA Performing Organization Address [facility] Co de Phone Number [facility] [place] [address] * (ABNORMAL) Basic Metabolic Panel (06/18/2024 4:19 AM EST) Glucose 103 65 - 199 mg/dL 06/18/2024 5:03 AM EST [facility] Comment:Glucose Concentratio n >=200 mg/dL [...] EST 06/18/2024 4:31 AM EST Keila Dayan GARNETT ROOM WORKER CHEMISTRY ORDERABL ES [facility] [place] [address] * POC, GLUCOSE (06/18/2024 3:50 AM EST) Glucometer, POC 99 65 - 199 mg/dL 06/18/2024 3:51 AM EST [facility] Comment:Supplemental ranges: <140 mg/dL before meals <180 mg/dL all other times of the day. Blood CAPILLARY BLOOD / Unknown 06/18/2024 3:50 AM EST 06/18/2024 3:51 AM EST Bobby Loja MD POINT OF CARE TEST O NIKA Performing Organization Address City/[facility]/ZIP Co de Phone Number [facility] [place] [address] * POC, GLUCOSE (06/17/2024 11:10 PM EST) Glucometer, POC 92 65 - 199 mg/dL 06/17/2024 11:10 PM EST [facility] Comment:Supplemental ranges: <140 mg/dL before meals <180 mg/dL all other times of the day. Blood CAPILLARY BLOOD / Unknown 06/17/2024 11:10 PM EST 06/17/2024 11:10 PM EST Bobby Loja MD POINT OF CARE TEST O NIKA Performing Organization Address City/[facility]/ZIP Co de Phone Number [facility] [place] [address] * POC, GLUCOSE (06/17/2024 7:54 PM EST) Glucometer, POC 126 65 - 199 mg/dL 06/17/2024 7:54 PM EST [facility] Comment:Supplemental ranges: <140 mg/dL before meals <180 mg/dL all other times of the day. Blood CAPILLARY BLOOD / Unknown 06/17/2024 7:54 PM EST 06/17/2024 7:54 PM EST Bobby Loja MD POINT OF CARE TEST O NIKA Performing Organization Address [facility] Co de Phone Number [facility] [place] [address] * POC, GLUCOSE (06/17/2024 4:07 PM EST) Glucometer, POC 141 65 - 199 mg/dL 06/17/2024 4:12 PM EST [facility] Comment:Supplemental ranges: <140 mg/dL before meals <180 mg/dL all other times of the day. Blood CAPILLARY BLOOD / Unknown 06/17/2024 4:07 PM EST 06/17/2024 4:12 PM EST Bobby Loja MD POINT OF CARE TEST O NIKA Performing Organization Address [facility] de Phone Number [facility] [place] [address] * XR Chest PA & Lateral (Generic) (06/17/2024 1:46 PM EST) WORKSTATION ID [id number] RAD Anatomical Region Laterality Modality Chest N/A [...] who have questions please contact the health lawn care professional that requested your imaging first. ? Electronically signed by: [facility] Spence [facility] ([phone]), at 06/17/2024 4:49 PM Narrative 06/17/2024 4:49 [...] patients who have questions please contactthe health lawn care professional that requested your imaging first. Electronically signed by: Josselyn Spence MD[facility]([phone]), at 06/17/2024 4:49 PM Keila Dayan CHOU IMG DX ORDERABLES * (ABNORMAL) POC, GLUCOSE (06/17/2024 11:04 AM EST) [facility] Glucometer, POC 245(H) 65 - 199 mg/dL 06/17/2024 11:04 AM EST [facility] Comment:Supplemental ranges: <140 mg/dL before meals <180 mg/dL all other times of the day. Blood CAPILLARY BLOOD / Unknown 06/17/2024 11:04 AM EST 06/17/2024 11:04 AM EST Bobby Loja MD POINT OF CARE TEST O NIKA Performing Organization Address [facility] Co de Phone Number [facility] [place] [address] * POC, GLUCOSE (06/17/2024 7:49 AM EST) Glucometer, POC 141 65 - 199 mg/dL 06/17/2024 7:55 AM EST [facility] Comment:Supplemental ranges: <140 mg/dL before meals <180 mg/dL all other times of the day. Blood CAPILLARY BLOOD / Unknown 06/17/2024 7:49 AM EST 06/17/2024 7:55 AM EST Bobby Loja MD POINT OF CARE TEST O NIKA Performing Organization Address [facility] Co de Phone Number [facility] [place] [address] * POC, GLUCOSE (06/17/2024 4:16 AM EST) Glucometer, POC 139 65 - 199 mg/dL 06/17/2024 4:16 AM EST [facility] Comment:Supplemental ranges: <140 mg/dL before meals <180 mg/dL all other times of the day. Blood CAPILLARY BLOOD / Unknown 06/17/2024 4:16 AM EST 06/17/2024 4:17 AM EST Narrative Authorizing Provider Result Saranya Loja MD POINT OF CARE TEST Abimael MAHER Performing Organization Address [facility] Co de Phone Number [facility] [place] [address] * Lactate, Whole Blood (06/17/2024 2:39 AM EST) Lactate, Whole Blood 1.3 0.5 - 2.2 mmol/L 06/17/2024 2:46 [address] [facility] Blood VENOUS BLOOD SPECIMEN / Unknown Venipuncture / Unknown 06/17/2024 2:39 AM EST 06/17/2024 2:43 AM EST Bobby Loja MD CHEMISTRY ORDERABLES [facility] [place] [address] * (ABNORMAL) Hemogram (06/17/2024 2:39 AM EST) [...] Bobby Loja MD HEMATOLOGY ORDERABLE S [facility] [place] [address] * (ABNORMAL) Basic Metabolic Panel (06/17/2024 2:39 [...] 98 - 107 mMol/L 06/17/2024 3:14 AM [facility] Carbon Dioxide 23 22 - 31 mMol/L 06/17/2024 3:14 AM [facility] Anion Gap 9 5 - 15 mMol/L 06/17/2024 3:14 AM [facility] Calcium 8.8 8.5 - 10.5 mg/dL 06/17/2024 3:14 AM EST [facility] Est Glomerular Filtration Rate - Male 50 mL/min/1. 73 m?? 06/17/2024 3:14 AM EST [facility] Comment: This patient's estimated GFR [...] Loja MD CHEMISTRY ORDERABLES Performing Organization Address City/[facility]/ZIP Co de Phone Number [facility] [place] [address] * (ABNORMAL) POC, GLUCOSE (06/17/2024 12:13 AM EST) Glucometer, POC 211(H) 65 - 199 mg/dL 06/17/2024 12:13 AM EST [facility] Comment:Supplemental ranges: <140 mg/dL before meals <180 mg/dL all other times of the day. Blood CAPILLARY BLOOD / Unknown 06/17/2024 12:13 AM EST 06/17/2024 12:14 AM EST Bobby Loja MD POINT OF CARE TEST O RDERABLES [facility] [place] [address] * (ABNORMAL) POC, GLUCOSE (06/16/2024 7:22 PM EST) Glucometer, POC 229(H) 65 - 199 mg/dL 06/16/2024 7:22 PM EST [facility] Comment:Supplemental ranges: <140 mg/dL before meals <180 mg/dL all other times of the day. Blood CAPILLARY BLOOD / Unknown 06/16/2024 7:22 PM EST 06/16/2024 7:22 PM EST Bobby Loja MD POINT OF CARE TEST O NIKA Performing Organization Address City/[facility]/ZIP Co de Phone Number [facility] [place] [address] * (ABNORMAL) POC, GLUCOSE (06/16/2024 6:14 PM EST) Glucometer, POC 220(H) 65 - 199 mg/dL 06/16/2024 6:14 PM EST [facility] Comment:Supplemental ranges: <140 mg/dL before meals <180 mg/dL all other times of the day. Blood CAPILLARY BLOOD / Unknown 06/16/2024 6:14 PM EST 06/16/2024 6:14 PM EST Narrative Authorizing Provider Result Saranya Loja MD POINT OF CARE TEST O NIKA Performing Organization Address [facility] Co de Phone Number [facility] [place] [address] * Lactate, Whole Blood (06/16/2024 6:14 PM EST) Lactate, Whole Blood 1.8 0.5 - 2.2 mmol/L 06/16/2024 6:27 PM EST [facility] Blood VENOUS BLOOD SPECIMEN / Unknown Venipuncture / Unknown 06/16/2024 6:14 PM EST 06/16/2024 6:25 PM EST Narrative Authorizing Provider Result Saranya Loja MD CHEMISTRY ORDERABLES Performing Organization Address City/[facility]/ZIP Co de Phone Number [facility] [place] [address] * (ABNORMAL) POC, GLUCOSE (06/16/2024 4:14 PM EST) Glucometer, POC 240(H) 65 - 199 mg/dL 06/16/2024 4:14 PM EST [facility] Comment:Supplemental ranges: <140 mg/dL before meals <180 mg/dL all other times of the day. Blood CAPILLARY BLOOD / Unknown 06/16/2024 4:14 PM EST 06/16/2024 4:14 PM EST Bobby Loja MD POINT OF CARE TEST O RDBECKIE Performing Organization Address City/[facility]/ZIP Co de Phone Number [facility] [place] [address] * POC, GLUCOSE (06/16/2024 11:49 AM EST) Glucometer, POC 199 65 - 199 mg/dL 06/16/2024 11:49 AM EST [facility] Comment:Supplemental ranges: <140 mg/dL before meals <180 mg/dL all other times of the day. Blood CAPILLARY BLOOD / Unknown 06/16/2024 11:49 AM EST 06/16/2024 11:49 AM EST Bobby Loja MD POINT OF CARE TEST O RDERAPIETER Performing Organization Address City/[facility] Co de Phone Number [facility] [place] [address] * (ABNORMAL) Hemogram (06/16/2024 11:44 AM EST) Pathologist [facility] White Blood Cell 17.91(H) 4.00 - 9.50 x10(3)/mc L 06/16/2024 12:25 PM EST [facility] Red Blood Cell 3.47(L) 4.58 - 5.54 x10(6)/mc L 06/16/2024 12:25 PM EST [facility] Hemoglobin 10.5(L) 13.7 - 16.5 g/dL 06/16/2024 12:25 PM EST [facility] Hematocrit 33.1(L) 40.5 - 48.5 % 06/16/2024 12:25 PM EST [facility] Mean Cell Volume 95.4(H) 82.9 [...] Bobby Loja MD HEMATOLOGY ORDERABLE S [facility] [place] [address] * Lactate, Whole Blood (06/16/2024 9:02 AM EST) Lactate, Whole Blood 1.8 0.5 - 2.2 mmol/L 06/16/2024 9:19 AM EST [facility] Blood VENOUS BLOOD SPECIMEN / Unknown Venipuncture / Unknown 06/16/2024 9:02 AM EST 06/16/2024 9:17 AM EST Bobby Loja MD CHEMISTRY ORDERABLES Performing Organization Address City/[facility]/ZIP Co de Phone Number [facility] [place] [address] * POC, GLUCOSE (06/16/2024 7:44 AM EST) Glucometer, POC 129 65 - 199 mg/dL 06/16/2024 7:44 AM EST [facility] Comment:Supplemental ranges: <140 mg/dL before meals <180 mg/dL all other times of the day. Blood CAPILLARY BLOOD / Unknown 06/16/2024 7:44 AM EST 06/16/2024 7:44 AM EST Bobby Loja MD POINT OF CARE TEST O RDERABLES Performing Organization Address [facility] Co de Phone Number [facility] [place] [address] * POC, GLUCOSE (06/16/2024 4:01 AM EST) Glucometer, POC 158 65 - 199 mg/dL 06/16/2024 4:01 AM EST [facility] Comment:Supplemental ranges: <140 mg/dL before meals <180 mg/dL all other times of the day. Blood CAPILLARY BLOOD / Unknown 06/16/2024 4:01 AM EST 06/16/2024 4:01 AM EST Narrative Authorizing Provider Result Saranya Loja MD POINT OF CARE TEST O RDERABLES Performing Organization Address City/[facility]/ZIP Co de Phone Number [facility] [place] [address] * (ABNORMAL) Basic Metabolic Panel (06/16/2024 2:23 [...] Loja MD CHEMISTRY ORDERABLES Performing Organization Address [facility] Co de Phone Number [facility] [place] [address] * POC, GLUCOSE (06/16/2024 2:21 AM EST) Glucometer, POC 176 65 - 199 mg/dL 06/16/2024 2:31 AM EST [facility] Comment:Supplemental ranges: <140 mg/dL before meals <180 mg/dL all other times of the day. Blood CAPILLARY BLOOD / Unknown 06/16/2024 2:21 AM EST 06/16/2024 2:31 AM EST Bobby Loja MD POINT OF CARE TEST O RDERABLES Performing Organization Address [facility] Co de Phone Number [facility] [place] [address] * (ABNORMAL) POC, GLUCOSE (06/16/2024 12:09 AM EST) Glucometer, POC 222(H) 65 - 199 mg/dL 06/16/2024 12:09 AM EST [facility] Comment:Supplemental ranges: <140 mg/dL before meals <180 mg/dL all other times of the day. Blood CAPILLARY BLOOD / Unknown 06/16/2024 12:09 AM EST 06/16/2024 12:09 AM EST Bobby Loja MD POINT OF CARE TEST O NIKA Performing Organization Address [facility] Co de Phone Number [facility] [place] [address] * (ABNORMAL) POC, GLUCOSE (06/15/2024 10:07 PM EST) Glucometer, POC 320(H) 65 - 199 mg/dL 06/15/2024 10:07 PM EST [facility] Comment:Supplemental ranges: <140 mg/dL before meals <180 mg/dL all other times of the day. Blood CAPILLARY BLOOD / Unknown 06/15/2024 10:07 PM EST 06/15/2024 10:07 PM EST Bobby Loja MD POINT OF CARE TEST O NIKA Performing Organization Address [facility] Co de Phone Number [facility] [place] [address] * (ABNORMAL) POC, GLUCOSE (06/15/2024 7:56 PM EST) Glucometer, POC 304(H) 65 - 199 mg/dL 06/15/2024 7:56 PM EST [facility] Comment:Supplemental ranges: <140 mg/dL before meals <180 mg/dL all other times of the day. Blood CAPILLARY BLOOD / Unknown 06/15/2024 7:56 PM EST 06/15/2024 7:56 PM EST Bobby Loja MD POINT OF CARE TEST Abimael MAHER Performing Organization Address [facility] de Phone Number [facility] [place] [address] * (ABNORMAL) POC, GLUCOSE (06/15/2024 7:52 PM EST) Glucometer, POC 288(H) 65 - 199 mg/dL 06/15/2024 7:52 PM EST [facility] Comment:Supplemental ranges: <140 mg/dL before meals <180 mg/dL all other times of the day. Blood CAPILLARY BLOOD / Unknown 06/15/2024 7:52 PM EST 06/15/2024 7:52 PM EST Bobby Loja MD POINT OF CARE TEST O NIKA Performing Organization Address [facility] Co de Phone Number [facility] [place] [address] * POC, GLUCOSE (06/15/2024 4:21 PM EST) Glucometer, POC 192 65 - 199 mg/dL 06/15/2024 4:21 PM EST [facility] Comment:Supplemental ranges: <140 mg/dL before meals <180 mg/dL all other times of the day. Blood CAPILLARY BLOOD / Unknown 06/15/2024 4:21 PM EST 06/15/2024 4:21 PM EST Bobby Loja MD POINT OF CARE TEST O NIKA [facility] [place] [address] * POC, GLUCOSE (06/15/2024 3:27 PM EST) Glucometer, POC 155 65 - 199 mg/dL 06/15/2024 3:27 PM EST [facility] Comment:Supplemental ranges: <140 mg/dL before meals <180 mg/dL all other times of the day. Blood CAPILLARY BLOOD / Unknown 06/15/2024 3:27 PM EST 06/15/2024 3:27 PM EST Bobby Loja MD POINT OF CARE TEST O NIKA Performing Organization Address City/[facility]/ZIP Co de Phone Number [facility] [place] [address] * POC, GLUCOSE (06/15/2024 2:23 PM EST) Glucometer, POC 160 65 - 199 mg/dL 06/15/2024 2:23 PM EST [facility] Comment:Supplemental ranges: <140 mg/dL before meals <180 mg/dL all other times of the day. Blood CAPILLARY BLOOD / Unknown 06/15/2024 2:23 PM EST 06/15/2024 2:23 PM EST Bobby Loja MD POINT OF CARE TEST O NIKA [facility] [place] [address] * POC, GLUCOSE (06/15/2024 1:26 PM EST) Glucometer, POC 167 65 - 199 mg/dL 06/15/2024 1:26 PM EST [facility] Comment:Supplemental ranges: <140 mg/dL before meals <180 mg/dL all other times of the day. Blood CAPILLARY BLOOD / Unknown 06/15/2024 1:26 PM EST 06/15/2024 1:26 PM EST Bobby Loja MD POINT OF CARE TEST O NIKA Performing Organization Address [facility] Co de Phone Number [facility] [place] [address] * (ABNORMAL) POC, GLUCOSE (06/15/2024 12:55 PM EST) Glucometer, POC 210(H) 65 - 199 mg/dL 06/15/2024 12:55 PM EST [facility] Comment:Supplemental ranges: <140 mg/dL before meals <180 mg/dL all other times of the day. Blood CAPILLARY BLOOD / Unknown 06/15/2024 12:55 PM EST 06/15/2024 12:55 PM EST Bobby Loja MD POINT OF CARE TEST O NIKA Performing Organization Address [facility] Co de Phone Number [facility] [place] [address] * (ABNORMAL) POC, GLUCOSE (06/15/2024 11:29 AM EST) Glucometer, POC 220(H) 65 - 199 mg/dL 06/15/2024 11:29 AM EST [facility] Comment:Supplemental ranges: <140 mg/dL before meals <180 mg/dL all other times of the day. Blood CAPILLARY BLOOD / Unknown 06/15/2024 11:29 AM EST 06/15/2024 11:29 AM EST Bobby Loja MD POINT OF CARE TEST Abimael MAHER Performing Organization Address City/[facility]/ZIP Co de Phone Number [facility] [place] [address] * (ABNORMAL) Basic Metabolic Panel (06/15/2024 11:23 [...] Loja MD CHEMISTRY ORDERABLES Performing Organization Address City/[facility]/ZIP Co de Phone Number [facility] [place] [address] * POC, GLUCOSE (06/15/2024 10:29 AM EST) Glucometer, POC 189 65 - 199 mg/dL 06/15/2024 10:29 AM EST [facility] Comment:Supplemental ranges: <140 mg/dL before meals <180 mg/dL all other times of the day. Blood CAPILLARY BLOOD / Unknown 06/15/2024 10:29 AM EST 06/15/2024 10:29 AM EST Bobby Loja MD POINT OF CARE TEST O RDERABLES Performing Organization Address [facility] Co de Phone Number [facility] [place] [address] * POC, GLUCOSE (06/15/2024 9:45 AM EST) Glucometer, POC 178 65 - 199 mg/dL 06/15/2024 9:45 AM EST [facility] Comment:Supplemental ranges: <140 mg/dL before meals <180 mg/dL all other times of the day. Blood CAPILLARY BLOOD / Unknown 06/15/2024 9:45 AM EST 06/15/2024 9:45 AM EST Narrative Authorizing Provider Result Saranya Loja MD POINT OF CARE TEST O RDERABLES Performing Organization Address City/[facility] Co de Phone Number [facility] [place] [address] * (ABNORMAL) Cooximetry, POC (06/15/2024 9:31 AM [...] POINT OF CARE TEST O RDERABLES [facility] [place] [address] * Cooximetry, POC (06/15/2024 9:22 AM EST) [...] POINT OF CARE TEST O RDERABLES [facility] [place] [address] * (ABNORMAL) Blood Gas, Arterial POC (06/15/2024 [...] CARE TEST Abimael MAHER Performing Organization Address City/[facility] Co de Phone Number [facility] [place] [address] * (ABNORMAL) POC, GLUCOSE (06/15/2024 8:37 AM EST) Glucometer, POC 204(H) 65 - 199 mg/dL 06/15/2024 8:[address] [facility] Comment:Supplemental ranges: <140 mg/dL before meals <180 mg/dL all other times of the day. Blood CAPILLARY BLOOD / Unknown 06/15/2024 8:37 AM EST 06/15/2024 8:37 AM EST Narrative Authorizing Provider Result Saranya Loja MD POINT OF CARE TEST Abimael MAHER [facility] [place] [address] * POC, GLUCOSE (06/15/2024 7:37 AM EST) Glucometer, POC 199 65 - 199 mg/dL 06/15/2024 7:37 AM EST [facility] Comment:Supplemental ranges: <140 mg/dL before meals <180 mg/dL all other times of the day. Blood CAPILLARY BLOOD / Unknown 06/15/2024 7:37 AM EST 06/15/2024 7:38 AM EST Bobby Loja MD POINT OF CARE TEST O NIKA Performing Organization Address [facility] de Phone Number [facility] [place] [address] * (ABNORMAL) POC, GLUCOSE (06/15/2024 7:01 AM EST) Glucometer, POC 203(H) 65 - 199 mg/dL 06/15/2024 7:01 AM EST [facility] Comment:Supplemental ranges: <140 mg/dL before meals <180 mg/dL all other times of the day. Blood CAPILLARY BLOOD / Unknown 06/15/2024 7:01 AM EST 06/15/2024 7:01 AM EST Bobby Loja MD POINT OF CARE TEST O NIKA Performing Organization Address [facility] de Phone Number [facility] [place] [address] * XR Chest One View (06/15/2024 6:31 AM EST) WORKSTATION ID [id number] RAD Anatomical Region Laterality Modality Chest N/A [...] who have questions please contact the health lawn care professional that requested your imaging first. ? Electronically signed by: Stuart Aponte MD, [facility] ??([phone]), at 06/15/2024 10:38 AM Narrative 06/15/2024 10:38 [...] patients who have questions please contactthe health lawn care professional that requested your imaging first. Bobby Loja MD IMG DX ORDERABLES * POC, GLUCOSE (06/15/2024 6:02 AM EST) Glucometer, POC 179 65 - 199 mg/dL 06/15/2024 6:02 AM EST [facility] Comment:Supplemental ranges: <140 mg/dL before meals <180 mg/dL all other times of the day. Blood CAPILLARY BLOOD / Unknown 06/15/2024 6:02 AM EST 06/15/2024 6:02 AM EST Bobby Loja MD POINT OF CARE TEST O NIKA [facility] [place] [address] * POC, GLUCOSE (06/15/2024 5:06 AM EST) Glucometer, POC 160 65 - 199 mg/dL 06/15/2024 5:06 AM EST [facility] Comment:Supplemental ranges: <140 mg/dL before meals <180 mg/dL all other times of the day. Blood CAPILLARY BLOOD / Unknown 06/15/2024 5:06 AM EST 06/15/2024 5:06 AM EST Bobby Loja MD POINT OF CARE TEST O NIKA Performing Organization Address City/[facility]/ZIP Co de Phone Number [facility] [place] [address] * POC, GLUCOSE (06/15/2024 4:05 AM EST) Glucometer, POC 160 65 - 199 mg/dL 06/15/2024 4:06 AM EST [facility] Comment:Supplemental ranges: <140 mg/dL before meals <180 mg/dL all other times of the day. Blood CAPILLARY BLOOD / Unknown 06/15/2024 4:05 AM EST 06/15/2024 4:06 AM EST Bobby Loja MD POINT OF CARE TEST O NIKA [facility] [place] [address] * POC, GLUCOSE (06/15/2024 3:07 AM EST) Glucometer, POC 151 65 - 199 mg/dL 06/15/2024 3:07 [address] [facility] Comment:Supplemental ranges: <140 mg/dL before meals <180 mg/dL all other times of the day. Blood CAPILLARY BLOOD / Unknown 06/15/2024 3:07 AM EST 06/15/2024 3:07 AM EST Bobby Loja MD POINT OF CARE TEST O RDERABLES [facility] [place] [address] * (ABNORMAL) Basic Metabolic Panel (06/15/2024 1:48 [...] 22 - 31 mMol/L 06/15/2024 2:38 AM [facility] Anion [...] Loja MD CHEMISTRY ORDERABLES Performing Organization Address City/State/[facility] Co de Phone Number [facility] [place] [address] * (ABNORMAL) CBC (with Diff) (06/15/2024 1:48 AM EST) White Blood Cell 11.71(H) 4.00 - 9.50 x10(3)/mc L 06/15/2024 2:13 AM EST [facility] Red Blood Cell 4.14(L) 4.58 - 5.54 x10(6)/mc L 06/15/2024 2:13 [address] [facility] Hemoglobin 12.5(L) 13.7 - 16.5 [...] Monocyte % 11.4 % 06/15/2024 2:13 AM [facility] Monocyte Absolute 1.33(H) 0.30 - 0.90 x10(3)/mc L 06/15/2024 2:13 AM [facility] Eos % 0.2 % 06/15/2024 2:13 AM [facility] Eos Absolute <0.04 0.00 - 0.40 x10(3)/mc L 06/15/2024 2:13 AM EST [facility] Basophil % 0.2 % 06/15/2024 2:13 AM EST [facility] Baso Absolute <0.04 0.00 - 0.10 x10(3)/mc L 06/15/2024 2:13 AM EST [facility] Immature Gran % 0.5 % 2:13 AM EST [facility] Immature Gran Absolute 0.06(H) 0.00 - 0.04 x10(3)/mc L 06/15/2024 2:13 AM EST [facility] Blood VENOUS BLOOD SPECIMEN / Unknown Venipuncture / Unknown 06/15/2024 1:48 AM EST 06/15/2024 1:52 AM EST Bobby Loja MD HEMATOLOGY ORDERABLE S Performing Organization Address City/State/[facility] Co de Phone Number [facility] [place] [address] * (ABNORMAL) Troponin - Single (06/15/2024 1:48 AM EST) Troponin-T, High Sensitivity 667(H) <=22 ng/L 06/15/2024 2:22 AM EST [facility] Comment: This patient's troponin T [...] troponin value can be found in the [facility] Test Catalog Troponin - https://[email or web address].org/catalogs/565/[email or web address]/[email or web address] Reference: Fourth Jefferson Definition of Myocardial Infarction. Journal of the [place] [employer] 2018;72:6229-1766 Blood VENOUS BLOOD SPECIMEN / Unknown Venipuncture / Unknown 06/15/2024 1:48 AM EST 06/15/2024 1:52 AM EST Bobby Loja MD CHEMISTRY ORDERABLES [facility] [place] [address] * (ABNORMAL) Blood Gas, Arterial POC (06/15/2024 1:46 AM EST) pH, Arterial 7.33(L) 7.35 - 7.45 06/15/2024 1:47 AM [facility] PCO2, Arterial 40 35 - 45 mmHg 06/15/2024 1:47 AM [facility] PO2, Arterial 131(H) 85 - 104 mmHg 06/15/2024 1:47 AM [facility] Bicarbonate, Arterial 20.7 20.0 - 26.0 mmol/L 06/15/2024 1:47 AM [facility] Base Excess, Arterial -5.2(L) -3.0 - 3.0 mmol/L 06/15/2024 1:47 AM [facility] Hemoglobin, Arterial 13.4(L) 13.7 - [...] POINT OF CARE TEST O RDERABLES [facility] [place] [address] * POC, GLUCOSE (06/15/2024 1:05 AM EST) [facility] Signature Glucometer, POC 116 65 - 199 mg/dL 06/15/2024 1:05 AM [facility] Comment:Supplemental ranges: <140 mg/dL before meals <180 mg/dL all other times of the day. Blood CAPILLARY BLOOD / Unknown 06/15/2024 1:05 AM EST 06/15/2024 1:05 AM EST Bobby Loja MD POINT OF CARE TEST O RDNICOLLEBLES Performing Organization Address City/[facility]/ZIP Co de Phone Number [facility] [place] [address] * POC, GLUCOSE (06/15/2024 12:16 AM EST) Glucometer, POC 135 65 - 199 mg/dL 06/15/2024 12:16 AM EST [facility] Comment:Supplemental ranges: <140 mg/dL before meals <180 mg/dL all other times of the day. Blood CAPILLARY BLOOD / Unknown 06/15/2024 12:16 AM EST 06/15/2024 12:16 AM EST Bobby Loja MD POINT OF CARE TEST O NIKA Performing Organization Address [facility] Co de Phone Number [facility] [place] [address] * Potassium (06/14/2024 11:28 PM EST) Potassium 4.1 3.5 - 5.0 mMol/L 06/14/2024 11:54 PM EST [facility] Blood VENOUS BLOOD SPECIMEN / Unknown Venipuncture / Unknown 06/14/2024 11:28 PM EST 06/14/2024 11:34 PM EST Bobby Loja MD CHEMISTRY ORDERABLES Performing Organization Address City/[facility] Co de Phone Number [facility] [place] [address] * POC, GLUCOSE (06/14/2024 10:58 PM EST) Glucometer, POC 126 65 - 199 mg/dL 06/14/2024 10:59 PM EST [facility] Comment:Supplemental ranges: <140 mg/dL before meals <180 mg/dL all other times of the day. Blood CAPILLARY BLOOD / Unknown 06/14/2024 10:58 PM EST 06/14/2024 10:59 PM EST Narrative Authorizing Provider Result Saranya Loja MD POINT OF CARE TEST O RDERABLES [facility] [place] [address] * POC, GLUCOSE (06/14/2024 9:55 PM EST) Glucometer, POC 152 65 - 199 mg/dL 06/14/2024 9:56 PM EST [facility] Comment:Supplemental ranges: <140 mg/dL before meals <180 mg/dL all other times of the day. Blood CAPILLARY BLOOD / Unknown 06/14/2024 9:55 PM EST 06/14/2024 9:56 PM EST Bobby Loja MD POINT OF CARE TEST O NIKA Performing Organization Address City/[facility]/ZIP Co de Phone Number [facility] [place] [address] * POC, GLUCOSE (06/14/2024 8:54 PM EST) Glucometer, POC 151 65 - 199 mg/dL 06/14/2024 8:54 PM EST [facility] Comment:Supplemental ranges: <140 mg/dL before meals <180 mg/dL all other times of the day. Blood CAPILLARY BLOOD / Unknown 06/14/2024 8:54 PM EST 06/14/2024 8:54 PM EST Narrative Authorizing Provider Result Saranya Loja MD POINT OF CARE TEST O NIKA [facility] [place] [address] * POC, GLUCOSE (06/14/2024 7:51 PM EST) Glucometer, POC 169 65 - 199 mg/dL 06/14/2024 7:52 PM EST [facility] Comment:Supplemental ranges: <140 mg/dL before meals <180 mg/dL all other times of the day. Blood CAPILLARY BLOOD / Unknown 06/14/2024 7:51 PM EST 06/14/2024 7:52 PM EST Bobby Loja MD POINT OF CARE TEST O NIKA [facility] [place] [address] * POC, GLUCOSE (06/14/2024 6:49 PM EST) Glucometer, POC 194 65 - 199 mg/dL 06/14/2024 6:50 PM EST [facility] Comment:Supplemental ranges: <140 mg/dL before meals <180 mg/dL all other times of the day. Blood CAPILLARY BLOOD / Unknown 06/14/2024 6:49 PM EST 06/14/2024 6:50 PM EST Bobby Loja MD POINT OF CARE TEST O NIKA Performing Organization Address [facility]/ZIP Co de Phone Number [facility] [place] [address] * (ABNORMAL) Hemoglobin (06/14/2024 6:19 PM EST) Hemoglobin 13.1(L) 13.7 - 16.5 g/dL 06/14/2024 7:08 PM EST [facility] Blood VENOUS BLOOD SPECIMEN / Unknown Venipuncture / Unknown 06/14/2024 6:19 PM EST 06/14/2024 6:28 PM EST Bobby Loja MD HEMATOLOGY ORDERABLE S Performing Organization Address City/[facility]/ZIP Co de Phone Number [facility] [place] [address] * Potassium (06/14/2024 6:19 PM EST) [facility] Potassium 3.9 3.5 - 5.0 mMol/L 06/14/2024 6:52 PM EST [facility] Blood VENOUS BLOOD SPECIMEN / Unknown Venipuncture / Unknown 06/14/2024 6:19 PM EST 06/14/2024 6:28 PM EST Bobby Loja MD CHEMISTRY ORDERABLES Performing Organization Address [facility] Co de Phone Number [facility] [place] [address] * (ABNORMAL) POC, GLUCOSE (06/14/2024 6:03 PM EST) [facility] Glucometer, POC 201(H) 65 - 199 mg/dL 06/14/2024 6:03 PM EST [facility] Comment:Supplemental ranges: <140 mg/dL before meals <180 mg/dL all other times of the day. Blood CAPILLARY BLOOD / Unknown 06/14/2024 6:03 PM EST 06/14/2024 6:03 PM EST Bobby Loja MD POINT OF CARE TEST O RDERABLES Performing Organization Address [facility] Co de Phone Number [facility] [place] [address] * (ABNORMAL) Blood Gas, Arterial POC (06/14/2024 4:51 PM EST) [facility] pH, Arterial 7.32(L) 7.35 - 7.45 06/14/2024 4:52 PM EST [facility] PCO2, Arterial 46(H) 35 - 45 mmHg 06/14/2024 4:52 PM EST [facility] PO2, Arterial 85 85 - [...] 1.15 - 1.33 mmol/L 06/14/2024 4:52 PM [facility] Glucose, Arterial 192 65 - 199 mg/dL 06/14/2024 4:52 PM [facility] Comment:Glucose Concentratio n >=200 mg/dL plus symptoms is consistent with Diabetes Mellitus. Blood ARTERIAL BLOOD / Unknown 06/14/2024 4:51 PM EST 06/14/2024 4:52 PM EST Bobby Loja MD POINT OF CARE TEST O NIKA Performing Organization Address [facility] Co de Phone Number [facility] [place] [address] * POC, GLUCOSE (06/14/2024 4:00 PM EST) Glucometer, POC 184 65 - 199 mg/dL 06/14/2024 4:01 PM EST [facility] Comment:Supplemental ranges: <140 mg/dL before meals <180 mg/dL all other times of the day. Blood CAPILLARY BLOOD / Unknown 06/14/2024 4:00 PM EST 06/14/2024 4:01 PM EST Bobby Loja MD POINT OF CARE TEST O NIKA Performing Organization Address [facility] Phone Number [facility] [place] [address] * XR Chest One View (06/14/2024 3:05 PM EST) WORKSTATION ID [id number] DH RAD Anatomical Region Laterality Modality Chest [...] who have questions please contact the health lawn care professional that requested your imaging first. ? Electronically signed by: Stuart Aponte MD, [facility] ??([phone]), at 06/14/2024 4:07 PM Narrative 06/14/2024 4:07 [...] patients who have questions please contactthe health lawn care professional that requested your imaging first. Bobby Loja [...] Arterial 0.1 <=1.5 % 06/14/2024 2:53 PM [facility] Sodium, Arterial 138 135 - 145 mmol/L 06/14/2024 2:53 PM [facility] Potassium, Arterial 4.2 3.5 - 5.0 mmol/L 06/14/2024 2:53 PM EST [facility] Chloride, Arterial 106 98 - 107 mmol/L 06/14/2024 2:53 PM EST [facility] Lactate, Arterial 1.1 0.5 - 2.2 mmol/L 06/14/2024 2:53 PM EST [facility] Fraction of Inspired Oxygen 100 % 06/14/2024 2:53 PM EST [facility] PF Ratio 510 Ratio 06/14/2024 2:53 PM EST [facility] Comment:PF ratio calculated using the [...] POINT OF CARE TEST O RDERABLES [facility] [place] [address] * EKG 12 Lead (06/14/2024 2:46 PM EST) Ventricular rate 80 BPM MUSE SYSTEM Atrial Rate 80 BPM MUSE SYSTEM P-R Interval 120 ms MUSE SYSTEM QRS Duration 108 ms MUSE SYSTEM Q-T Interval 454 ms MUSE SYSTEM QTC Calculated (Bezet) 523 ms MUSE SYSTEM Calculated P Grimes 70 degrees MUSE SYSTEM Calculated R Grimes 56 degrees MUSE SYSTEM Calculated T Grimes 50 degrees MUSE SYSTEM INTERPRETATION AV dual-paced rhythm Abnormal ECG When compared with ECG of 03-JUN-2024 01:45, Vent. rate has increased BY ??17 BPM Confirmed by MD Marisol, Shaheen ([id number]) on 06/15/2024 1:57:23 PM MUSE SYSTEM 06/14/2024 2:46 PM EST 06/15/2024 1:57 PM EST Bobby Loja MD ECG ORDERABLES MUSE SYSTEM * Prepare RBC (06/14/2024 2:27 PM EST) Status Information Returned [facility] Product Identification RBC [facility] Unit Number [id number] [facility] Product Code [id number] [facility] Unit Blood Type OPOS [facility] Specimen Expiration Date [facility] Volulme 350 [facility] Issue Date / Time [facility] Status Information Returned [facility] Product Identification RBC [facility] Unit Number [id number] [facility] Product Code [id number] [facility] Unit Blood Type OPOS [facility] Specimen Expiration Date [facility] Volulme 350 [facility] Issue Date / Time [facility] Blood 06/14/2024 6:2 5 AM EST Haja Byrnes MD BLOOD BANK PRODUCT O RDERABLES [facility] [place] [address] * (ABNORMAL) Cooximetry, POC (06/14/2024 1:52 PM EST) pO2, Coox 58 mmHg 06/14/2024 1:55 PM EST [facility] Hemoglobin, Coox 12.6(L) 13.7 - 16.5 g/dL 06/14/2024 1:55 PM EST [facility] Oxyhemoglobin, Coox 85.5 % 06/14/2024 1:55 PM EST [facility] Carboxyhemoglo bin, Coox 0.3 % 06/14/2024 1:55 PM EST [facility] Comment: Nonsmokers: 0.5-1.5% COHB ?? Smokers: Variable ??but usually less than 10% ?? Toxic: 20-30% COHB ?? Lethal: Greater than 60% COHB Methemoglobin, Coox 0.6 <=1.5 % 06/14/2024 1:55 PM [facility] Blood (Mixed Venous) 06/14/2024 1:52 PM EST 06/14/2024 1:55 PM EST Haja Byrnes MD POINT OF CARE TEST O RDERABLES [facility] [place] [address] * (ABNORMAL) Blood Gas, Arterial POC (06/14/2024 [...] 94.0 - 97.0 % 06/14/2024 12:48 PM [facility] Carboxyhemoglobin , Arterial 0.3 % 06/14/2024 12:48 PM [facility] Comment: Nonsmokers: 0.5-1.5% COHB ?? Smokers: Variable ??but usually less than 10% ?? Toxic: 20-30% COHB ?? Lethal: Greater than 60% COHB Methemoglobin, Arterial 0.5 <=1.5 % 06/14/2024 12:48 PM EST [facility] Sodium, Arterial 135 135 - 145 mmol/L 06/14/2024 12:48 PM [facility] Potassium, Arterial 5.0 3.5 - 5.0 mmol/L 06/14/2024 12:48 PM EST [facility] Chloride, Arterial 106 98 - 107 mmol/L 06/14/2024 12:48 PM [facility] Lactate, Arterial 1.4 0.5 - 2.2 mmol/L 06/14/2024 12:48 PM [facility] IONIZED CALCIUM, ARTERIAL 1.09(L) 1.15 - 1.33 mmol/L 06/14/2024 12:48 PM [facility] Glucose, Arterial 157 65 - 199 mg/dL 06/14/2024 12:48 PM [facility] Comment:Glucose Concentratio n >=200 mg/dL plus symptoms is consistent with Diabetes Mellitus. Blood ARTERIAL BLOOD / Unknown 06/14/2024 12:47 PM EST 06/14/2024 12:48 PM EST Haja Byrnes MD POINT OF CARE TEST O RDERABLES [facility] [place] [address] * (ABNORMAL) Cooximetry, POC (06/14/2024 12:42 PM EST) pO2, Coox 71 mmHg 06/14/2024 12:45 PM EST [facility] Hemoglobin, Coox 11.6(L) 13.7 - 16.5 g/dL 06/14/2024 12:45 PM [facility] Oxyhemoglobin, Coox 91.5 % 06/14/2024 12:45 PM EST [facility] Carboxyhemoglo bin, Coox 0.3 % 06/14/2024 12:45 PM EST [facility] Comment: Nonsmokers: 0.5-1.5% COHB ?? Smokers: Variable ??but usually less than 10% ?? Toxic: 20-30% COHB ?? Lethal: Greater than 60% COHB Methemoglobin, Coox 0.4 <=1.5 % 06/14/2024 12:45 PM EST [facility] Blood (Mixed Venous) 06/14/2024 12:42 PM EST 06/14/2024 12:45 PM EST Haja Byrnes MD POINT OF CARE TEST O RDERABLES [facility] [place] [address] * (ABNORMAL) Platelet count (06/14/2024 12:30 PM EST) Platelet 73(L) 145 - 357 x10(3)/mcL 06/14/2024 12:54 PM EST [facility] Blood ARTERIAL BLOOD / Unknown 06/14/2024 12:30 PM EST Comment:Pre-op diagnosis: CAD Bobby Loja MD HEMATOLOGY ORDERABLE S Performing Organization Address City/[facility]/ZIP Co de Phone Number [facility] [place] [address] * (ABNORMAL) Hemoglobin and Hematocrit, blood (06/14/2024 12:30 PM EST) Hemoglobin 10.9(L) 13.7 - 16.5 g/dL 06/14/2024 12:54 PM EST [facility] Hematocrit 33.5(L) 40.5 - 48.5 % 06/14/2024 12:54 PM EST [facility] Comment:This result has been called to Danielle López by Satya Page on 06/14/2024 12:53:56, and has been read back. Blood ARTERIAL BLOOD / Unknown 06/14/2024 12:30 PM EST 06/14/2024 12:42 PM EST Comment:Pre-op diagnosis: CAD Bobby Loja MD HEMATOLOGY ORDERABLE S Performing Organization Address [facility]/State/ZIP Co de Phone Number [facility] [place] [address] * APTT (06/14/2024 12:30 PM EST) Partial Thromboplastin Time 31 25 - 37 sec 06/14/2024 12:57 PM EST [facility] Comment: The PTT is NOT appropriate for heparin monitoring. Use the Anti-Xa level for heparin monitoring (HEP UFH) or LMWH monitoring (HEP LMW). A PTT less than 37 seconds generally indicates adequate hemostasis. Blood ARTERIAL BLOOD / Unknown 06/14/2024 12:30 PM EST 06/14/2024 12:42 PM EST Comment:Pre-op diagnosis: CAD Bobby Loja MD HEMATOLOGY ORDERABLE S Performing Organization Address [facility] Co de Phone Number [facility] [place] [address] * (ABNORMAL) Prothrombin Time (06/14/2024 12:30 PM EST) Prothrombin Time 16.8(H) 9.4 - 12.5 sec 06/14/2024 12:57 PM EST [facility] International Normalization Ratio 1.5 <=4.9 06/14/2024 12:57 PM EST [facility] Comment: An INR < 2.0 [...] MD HEMATOLOGY ORDERABLE S Performing Organization Address City/[facility]/ZIP Co de Phone Number [facility] [place] [address] * Fibrinogen (06/14/2024 12:30 PM EST) Fibrinogen 211 200 - 393 mg/dL 06/14/2024 12:57 PM EST [facility] Comment: A fibrinogen level >100 mg/dL is adequate for hemostasis in most patients without underlying bleeding disorders. Blood ARTERIAL BLOOD / Unknown 06/14/2024 12:30 PM EST 06/14/2024 12:42 PM EST Comment:Pre-op diagnosis: CAD Bobby Loja MD HEMATOLOGY ORDERABLE S Performing Organization Address [facility] Co de Phone Number [facility] [place] [address] * (ABNORMAL) Blood Gas, Arterial POC (06/14/2024 12:15 PM EST) pH, Arterial 7.38 7.35 - 7.45 06/14/2024 12:16 PM EST [facility] PCO2, Arterial 40 35 - 45 mmHg 06/14/2024 12:16 PM [facility] Bicarbonate, Arterial 22.9 20.0 - 26.0 mmol/L 06/14/2024 12:16 PM EST [facility] Base Excess, Arterial -2.3 -3.0 - 3.0 mmol/L 06/14/2024 12:16 PM EST [facility] Hemoglobin, Arterial 11.4(L) 13.7 - 16.5 g/dL 06/14/2024 12:16 PM [facility] Oxyhemoglobin, Arterial 98.8(H) 94.0 - 97.0 % 06/14/2024 12:16 PM EST [facility] Carboxyhemoglobin , Arterial 0.3 % 06/14/2024 12:16 PM EST [facility] Comment: Nonsmokers: 0.5-1.5% COHB ?? Smokers: Variable ??but usually less than 10% ?? Toxic: 20-30% COHB ?? Lethal: Greater than 60% COHB Methemoglobin, Arterial 0.6 <=1.5 % 06/14/2024 12:16 PM EST [facility] Sodium, Arterial 134(L) 135 - [...] POINT OF CARE TEST O RDERABLES [facility] [place] [address] * (ABNORMAL) Blood Gas, Arterial POC (06/14/2024 11:51 AM EST) pH, Arterial 7.40 7.35 - 7.45 06/14/2024 11:52 AM EST [facility] PCO2, Arterial 41 35 - 45 mmHg 06/14/2024 11:52 AM EST [facility] PO2, Arterial 332(H) 85 - [...] POINT OF CARE TEST O RDERABLES [facility] [place] [address] * (ABNORMAL) Blood Gas, Arterial POC (06/14/2024 [...] POINT OF CARE TEST O RDERABLES [facility] [place] [address] * (ABNORMAL) Scan, Peripheral Blood (06/14/2024 11:23 AM EST) RBC Morphology Abnormal 06/14/2024 11:59 AM [facility] Platelet Estimate Decreased(A) Normal 06/14/2024 11:59 AM [facility] Aretha cells 1-5 /HPF 06/14/2024 11:59 AM [facility] Blood ARTERIAL BLOOD / Unknown 06/14/2024 11:23 AM EST 06/14/2024 11:27 AM EST Bobby Loja MD HEMATOLOGY ORDERABLE S [facility] [place] [address] * (ABNORMAL) Platelet count (06/14/2024 11:23 AM EST) Platelet 86(L) 145 - 357 x10(3)/mcL 06/14/2024 11:59 AM EST [facility] Blood ARTERIAL BLOOD / Unknown 06/14/2024 11:23 AM EST Comment:Pre-op diagnosis: CAD Bobby Loja MD HEMATOLOGY ORDERABLE S [facility] [place] [address] * (ABNORMAL) Hemoglobin and Hematocrit, blood (06/14/2024 11:23 AM EST) Hemoglobin 9.8(L) 13.7 - 16.5 g/dL 06/14/2024 11:59 AM EST [facility] Comment:This result has been called to Danielle López by Satya Page on 06/14/2024 11:58:33. Hematocrit 30.5(L) 40.5 - 48.5 % 06/14/2024 11:59 AM EST [facility] Comment:This result has been called to Danielle López by Satay Page on 06/14/2024 11:58:40, and has been read back. Blood ARTERIAL BLOOD / Unknown 06/14/2024 11:23 AM EST 06/14/2024 11:27 AM EST Comment:Pre-op diagnosis: CAD Bobby Loja MD HEMATOLOGY ORDERABLE S [facility] [place] [address] * (ABNORMAL) Blood Gas, Arterial POC (06/14/2024 10:58 AM EST) pH, Arterial 7.38 7.35 - 7.45 06/14/2024 10:59 AM EST [facility] PCO2, Arterial 43 35 - 45 mmHg 06/14/2024 10:59 AM EST [facility] PO2, Arterial 401(H) 85 - [...] POINT OF CARE TEST O RDERABLES [facility] [place] [address] * (ABNORMAL) Blood Gas, Arterial POC (06/14/2024 [...] POINT OF CARE TEST O RDERABLES [facility] [place] [address] * (ABNORMAL) Blood Gas, Arterial POC (06/14/2024 [...] POINT OF CARE TEST O RDERABLES [facility] [place] [address] * Surgical Pathology (06/14/2024 9:53 AM EST) Case Report Surgical Pathology Report ? Case: [id number] ? Authorizing Provider: ??Bobby Loja MD ? Collected: ? 06/14/2024 0953 ? Ordering Location: ? Main Operating Room [facility] ?? Received: ?06/14/2024 1413 ? [facility] ? Pathologist: ? Sandra Salas, ? Specimens: ?? A) - Soft Tissue [...] Inking: External surface inked black Sections/Process ing: Workforce Analyst sections in 4 cassettes labeled A1-A4. cmk B. Heart, Atrial Appendage, Left, . B - Labeled/Fixative : Heart, atrial appendage, left, fresh. Quantity/Size: Single, 3.3 x 1.5 x 0.8 cm. Tissue Description: Portion of heart tissue consisting of rodriguez-white, semitranslucent, smooth endocardium with rodriguez-brown muscular myocardium and thin translucent epicardium with adherent adipose tissue. No areas of discoloration identified. Sections/Process ing: Workforce Analyst sections in 1 cassette labeled B1. cmk [...] Bobby Loja MD PATHOLOGY/CYTOLOGY O RDERABLES [facility] [place] [address] * Cooximetry, POC (06/14/2024 9:00 AM EST) pO2, Coox 57 mmHg 06/14/2024 9:04 AM EST [facility] PO2 Corrected, COOX 50 mmHg 06/14/2024 9:04 AM [facility] Hemoglobin, Coox 14.3 13.7 - 16.5 g/dL 06/14/2024 9:04 AM [facility] Oxyhemoglobin, Coox 86.2 % 06/14/2024 9:04 AM EST [facility] Carboxyhemoglobi n, Coox 0.3 % 06/14/2024 9:04 AM EST [facility] Comment: Nonsmokers: 0.5-1.5% COHB ?? Smokers: Variable ??but usually less than 10% ?? Toxic: 20-30% COHB ?? Lethal: Greater than 60% COHB Methemoglobin, Coox 0.3 <=1.5 % 06/14/2024 9:04 AM EST [facility] Temperature Coox 35.2 C 06/14/20 24 9:04 AM EST [facility] Blood (Mixed Venous) 06/14/2024 9:00 AM EST 06/14/2024 9:04 AM EST Haja Byrnes MD POINT OF CARE TEST O RDERABLES [facility] [place] [address] * (ABNORMAL) Blood Gas, Arterial POC (06/14/2024 [...] 3.5 - 5.0 mmol/L 06/14/2024 8:40 AM [facility] Chloride, Arterial 102 98 - 107 mmol/L 06/14/2024 8:40 AM [facility] Lactate, Arterial 0.9 0.5 - 2.2 mmol/L 06/14/2024 8:40 AM [facility] IONIZED CALCIUM, ARTERIAL 1.17 1.15 - 1.33 mmol/L 06/14/2024 8:40 AM EST [facility] Glucose, Arterial 121 65 - 199 mg/dL 06/14/2024 8:40 AM EST [facility] Comment:Glucose Concentratio n >=200 mg/dL plus symptoms is consistent with Diabetes Mellitus. Blood ARTERIAL BLOOD / Unknown 06/14/2024 8:39 AM EST 06/14/2024 8:40 AM EST Haja Byrnes MD POINT OF CARE TEST O RDERABLES Performing Organization Address City/State/[facility] Co de Phone Number [facility] [place] [address] * Transesophageal Echo/OR (06/14/2024 7:20 AM EST) Anatomical Region Laterality Modality Cardiac Other 06/14/2024 7:20 AM EST Narrative 06/14/2024 4:36 PM EST Version: 2 Study ID: [id number] [address] [place] [address] ?OR Transesophageal Echo Report Name: GEORGE MEHTA [...] of this mass after consultation with other investment accounting clerk experts and the decision was made by [...] MD - 06/14/2024 Version: 2 Study ID: [id number] [address] [place] [address] ORTransesophageal Echo Report Name: GEORGE MEHTA Study [...] of this mass after consultation with other investment accounting clerk experts and thedecision was made by surgeon [...] 199 mg/dL 06/14/2024 7:12 AM EST [facility] Comment:Supplemental ranges: <140 mg/dL before meals <180 mg/dL all other times of the day. Blood CAPILLARY BLOOD / Unknown 06/14/2024 7:11 AM EST 06/14/2024 7:12 AM EST Haja Byrnes MD POINT OF CARE TEST O RALPHERAPIETER Performing Organization Address City/[facility]/ZIP Co de Phone Number [facility] [place] [address] * POC, GLUCOSE (06/14/2024 4:30 AM EST) Glucometer, POC 85 65 - 199 mg/dL 06/14/2024 4:30 AM EST [facility] Comment:Supplemental ranges: <140 mg/dL before meals <180 mg/dL all other times of the day. Blood CAPILLARY BLOOD / Unknown 06/14/2024 4:30 AM EST 06/14/2024 4:30 AM EST Haja Byrnes MD POINT OF CARE TEST O NIKA [facility] [place] [address] * (ABNORMAL) Heparin (unfractionated) Level (06/14/2024 12:12 AM EST) UF Heparin 1.02(HHH) IU/mL 06/14/2024 12:46 AM EST [facility] Comment: Heparin (anti-Xa) levels should [...] MD HEMATOLOGY ORDERABLE S Performing Organization Address City/State/[facility] Co de Phone Number [facility] [place] [address] * (ABNORMAL) CBC (with Diff) (06/14/2024 12:12 AM EST) White Blood Cell 10.51(H) 4.00 - 9.50 x10(3)/mc L 06/14/2024 12:38 AM EST [facility] Red Blood Cell 4.99 4.58 - 5.54 x10(6)/mc L 06/14/2024 12:38 AM EST [facility] Hemoglobin 14.9 13.7 - 16.5 g/dL 06/14/2024 12:38 AM [facility] Hematocrit 45.9 40.5 - 48.5 [...] - 0.90 x10(3)/mc L 06/14/2024 12:38 AM [facility] Eos % 3.9 % 06/14/2024 12:38 AM [facility] Eos Absolute 0.41(H) 0.00 - 0.40 x10(3)/mc L 06/14/2024 12:38 AM EST [facility] Basophil % 0.8 % 06/14/2024 12:38 AM [facility] Baso Absolute 0.08 0.00 - 0.10 x10(3)/mc L 06/14/2024 12:38 AM [facility] Immature Gran % 0.6 % 12:38 AM EST [facility] Immature Gran Absolute 0.06(H) 0.00 - 0.04 x10(3)/mc L 06/14/2024 12:38 AM EST [facility] Blood VENOUS BLOOD SPECIMEN / Unknown Venipuncture / Unknown 06/14/2024 12:12 AM EST 06/14/2024 12:29 AM EST Shahnaz Scanlon MD HEMATOLOGY ORDERABLE S Performing Organization Address City/[facility]/ZIP Co de Phone Number [facility] [place] [address] * Magnesium (06/14/2024 12:12 AM EST) Magnesium 0.74 0.69 - 1.07 mMol/L 06/14/2024 12:57 AM [facility] Blood VENOUS BLOOD SPECIMEN / Unknown Venipuncture / Unknown 06/14/2024 12:12 AM EST 06/14/2024 12:29 AM EST Shahnaz Scanlon MD CHEMISTRY ORDERABLES [facility] [place] [address] * (ABNORMAL) Basic Metabolic Panel (06/14/2024 12:12 [...] EST Shahnaz Scanlon MD CHEMISTRY ORDERABLES [facility] [place] [address] * Scan Doc: Implantable Devices (06/14/2024 12:00 AM EST) Narrative 06/14/2024 12:00 AM EST Ordered by an unspecified provider. Scanning Provider MEDIA MGR SCAN EXT O RDR/RSLT * POC, GLUCOSE (06/13/2024 11:12 PM EST) Glucometer, POC 104 65 - 199 mg/dL 06/13/2024 11:13 PM EST [facility] Comment:Supplemental ranges: <140 mg/dL before meals <180 mg/dL all other times of the day. Blood CAPILLARY BLOOD / Unknown 06/13/2024 11:12 PM EST 06/13/2024 11:13 PM EST Haja Byrnes MD POINT OF CARE TEST O NIKA Performing Organization Address [facility]/ZIP Co de Phone Number [facility] [place] [address] * (ABNORMAL) POC, GLUCOSE (06/13/2024 8:03 PM EST) Glucometer, POC 206(H) 65 - 199 mg/dL 06/13/2024 8:03 PM EST [facility] Comment:Supplemental ranges: <140 mg/dL before meals <180 mg/dL all other times of the day. Blood CAPILLARY BLOOD / Unknown 06/13/2024 8:03 PM EST 06/13/2024 8:03 PM EST Haja Byrnes MD POINT OF CARE TEST Abimael MAHER Performing Organization Address City/[facility]/ZIP Co de Phone Number [facility] [place] [address] * Heparin (unfractionated) Level (06/13/2024 4:11 PM EST) Pathologist [facility] UF Heparin 0.76 IU/mL 06/13/2024 4:24 PM EST [facility] Comment: Heparin (anti-Xa) levels should [...] MD HEMATOLOGY ORDERABLE S Performing Organization Address City/[facility]/ZIP Co de Phone Number [facility] [place] [address] * ABORH RECHECK (06/13/2024 4:11 PM EST) ABORH Recheck O POSITIVE 06/13/2024 4:50 PM EST [facility] Blood VENOUS BLOOD SPECIMEN / Unknown Venipuncture / Unknown 06/13/2024 4:11 PM EST 06/13/2024 4:19 PM EST Haja Byrnes MD BLOOD BANK LAB ORDER EUSEBIA Performing Organization Address City/[facility]/ZIP Co de Phone Number [facility] [place] [address] * (ABNORMAL) POC, GLUCOSE (06/13/2024 4:09 PM EST) Glucometer, POC 216(H) 65 - 199 mg/dL 06/13/2024 4:10 PM EST [facility] Comment:Supplemental ranges: <140 mg/dL before meals <180 mg/dL all other times of the day. Blood CAPILLARY BLOOD / Unknown 06/13/2024 4:09 PM EST 06/13/2024 4:10 PM EST Haja Byrnes MD POINT OF CARE TEST O NIKA Performing Organization Address City/[facility]/ZIP Co de Phone Number [facility] [place] [address] * Type and screen ([facility]/CGP/RAFITA) (06/13/2024 11:53 AM EST) [facility] ABORH Type O POSITIVE 06/13/2024 1:16 PM EST [facility] PATIENT HISTORY Not Found 06/13/2024 1:16 PM EST [facility] Expires at [id number] on: 06/16/2024 06/13/2024 1:16 PM EST [facility] ANTIBODY SCREEN AUTOMATED Negative 06/13/2024 1:16 PM EST [facility] T&S only valid at [facility] 06/13/2024 1:16 PM EST [facility] Blood VENOUS BLOOD SPECIMEN / Unknown Venipuncture / Unknown 06/13/2024 11:53 AM EST 06/13/2024 11:56 AM EST Narrative [facility] - 06/13/2024 1:16 PM EST This Type and Screen result is only valid at the [facility] Haja Byrnes MD BLOOD BANK LAB ORDER EUSEBIA Performing Organization Address [facility] Co de Phone Number [facility] [place] [address] * POC, GLUCOSE (06/13/2024 11:50 AM EST) [facility] Glucometer, POC [phone] - 199 mg/dL 06/13/2024 11:51 AM EST [facility] Comment:Supplemental ranges: <140 mg/dL before meals <180 mg/dL all other times of the day. Blood CAPILLARY BLOOD / Unknown 06/13/2024 11:50 AM EST 06/13/2024 11:51 AM EST Haja Byrnes MD POINT OF CARE TEST O RDERABLES [facility] [place] [address] * XR Chest One View (06/13/2024 10:35 AM EST) WORKSTATION ID [id number] RAD Anatomical Region Laterality Modality Chest N/A [...] who have questions please contact the health lawn care professional that requested your imaging first. ? Narrative [...] patients who have questions please contactthe health lawn care professional that requested your imaging first. Haja Byrnes MD IMG DX ORDERABLES * CARDIAC CATHETERIZATION (06/13/2024 9:02 AM EST) Anatomical Region Laterality Modality Other Narrative 06/15/2024 9:07 AM EST ?[facility] ? Cardiac Catheterization/Intervention Report ? Patient Name: Tyson, George L. ? Procedure Date: 06/13/2024 ? A #: [id number] ? Primary Physician: Nuha Shen I ? Case #: [id number] ? File Name: [id number] ? Catheterization Order Number: [id number] ? [facility] ? Final Report [place], [place] ? Patient Name: ? George L. Tyson ? ID#: ?[id number] ? : ?1955 ? Procedure Date: ? June 13, 2024 ?Case #: ? [id number] ? Room: ? 6 ? Case Physician: [...] ?was designated as ASA Class IV. The [facility] clinical frailty scale is 5: [...] procedure was Urgent. The indication for ?the lab assistant visit is ACS greater than 24 hrs [...] angiography, vascular ?ultrasound and IABP insertion in lab assistant. ? Nuha Shen, M.D. ? Electronically Signed by: Nuha Shen, M.D. ? Report Finalized: 06/15/2024 ??08:59 ? Procedure Note Nuha Shen MD - 06/15/2024 [facility] Cardiac Catheterization/Intervention Report Patient Name: George Mehta Procedure Date: 06/13/2024 A #: [id number] Primary Physician: Nuha Shen I Case #: [id number] File Name: [id number] Catheterization Order Number: [id number] [facility] FinalReport [place], [place] Patient Name: George Mehta ID#:[id number] :[id number] Procedure Date: June 13, 2024 Case [...] was designated as ASA Class IV. The [facility] clinical frailty scale is5: Mildly [...] diagnostic procedure was Urgent. The indicationfor the lab assistant visit is ACS greater than 24 hrs [...] site angiography,vascular ultrasound and IABP insertion in lab assistant. Nuha Shen M.D. Electronically Signed by: Nuha Shen M.D. Report Finalized: 06/15/2024 08:59 Nuha Rojo MD CARDIAC CATH ORDERA BLES * Potassium (06/13/2024 7:48 AM EST) [facility] Potassium 4.5 3.5 - 5.0 mMol/L 06/13/2024 8:28 AM EST [facility] Blood VENOUS BLOOD SPECIMEN / Unknown Venipuncture / Unknown 06/13/2024 7:48 AM EST 06/13/2024 7:55 AM EST Shahnaz Scanlon MD CHEMISTRY ORDERABLES [facility] [place] [address] * POC, GLUCOSE (06/13/2024 7:41 AM EST) [facility] Signature Glucometer, POC 126 65 - 199 mg/dL 06/13/2024 7:41 AM EST [facility] Comment:Supplemental ranges: <140 mg/dL before meals <180 mg/dL all other times of the day. Blood CAPILLARY BLOOD / Unknown 06/13/2024 7:41 AM EST 06/13/2024 7:41 AM EST Ethel Carrillo MD POINT OF CARE TEST O RDERABLES [facility] [place] [address] * POC, GLUCOSE (06/13/2024 3:25 AM EST) Glucometer, POC 99 65 - 199 mg/dL 06/13/2024 3:25 AM EST [facility] Comment:Supplemental ranges: <140 mg/dL before meals <180 mg/dL all other times of the day. Blood CAPILLARY BLOOD / Unknown 06/13/2024 3:25 AM EST 06/13/2024 3:25 AM EST Ethel Carrillo MD POINT OF CARE TEST O RDERABLES Performing Organization Address [facility] Co de Phone Number [facility] [place] [address] * Heparin (unfractionated) Level (06/13/2024 2:26 AM EST) Pathologist [facility] UF Heparin 0.60 IU/mL 06/13/2024 3:32 AM EST [facility] Comment: Heparin (anti-Xa) levels should [...] MD HEMATOLOGY ORDERABLE S Performing Organization Address City/[facility]/ZIP Co de Phone Number [facility] [place] [address] * (ABNORMAL) CBC (with Diff) (06/13/2024 2:26 AM EST) [facility] White Blood Cell 9.98(H) 4.00 - 9.50 [...] 0.40 x10(3)/mc L 06/13/2024 2:41 AM EST [facility] Basophil % 0.9 % 06/13/2024 [...] Shahnaz Scanlon MD HEMATOLOGY ORDERABLE S [facility] [place] [address] * Magnesium (06/13/2024 2:26 AM EST) Magnesium 0.78 0.69 - 1.07 mMol/L 06/13/2024 2:58 AM [facility] Blood VENOUS BLOOD SPECIMEN / Unknown Venipuncture / Unknown 06/13/2024 2:26 AM EST 06/13/2024 2:31 AM EST Shahnaz Scanlon MD CHEMISTRY ORDERABLES [facility] [place] [address] * (ABNORMAL) Basic Metabolic Panel (06/13/2024 2:26 AM EST) Glucose 121 65 - 199 mg/dL 06/13/2024 2:58 AM [facility] Comment:Glucose Concentratio n >=200 mg/dL plus symptoms is consistent with Diabetes Mellitus. Blood Urea Nitrogen 21(H) 10 - 20 mg/dL 06/13/2024 2:58 AM [facility] Creatinine 1.07 0.80 - 1.50 mg/dL 06/13/2024 2:58 AM [facility] Sodium [...] 5 - 15 mMol/L 06/13/2024 2:58 AM [facility] Calcium 9.7 8.5 - 10.5 mg/dL 06/13/2024 2:58 AM [facility] Est Glomerular Filtration Rate - Male 76 mL/min/1. 73 m?? 06/13/2024 2:58 AM [facility] Comment: [...] Scanlon MD CHEMISTRY ORDERABLES Performing Organization Address [facility]/ZIP Co de Phone Number [facility] [place] [address] * POC, GLUCOSE (06/12/2024 11:53 PM EST) Glucometer, POC 141 65 - 199 mg/dL 06/12/2024 11:54 PM EST [facility] Comment:Supplemental ranges: <140 mg/dL before meals <180 mg/dL all other times of the day. Blood CAPILLARY BLOOD / Unknown 06/12/2024 11:53 PM EST 06/12/2024 11:54 PM EST Ethel Carrillo MD POINT OF CARE TEST O RDERABLES Performing Organization Address City/[facility]/ZIP Co de Phone Number [facility] [place] [address] * POC, GLUCOSE (06/12/2024 7:32 PM EST) Glucometer, POC 158 65 - 199 mg/dL 06/12/2024 7:32 PM EST [facility] Comment:Supplemental ranges: <140 mg/dL before meals <180 mg/dL all other times of the day. Blood CAPILLARY BLOOD / Unknown 06/12/2024 7:32 PM EST 06/12/2024 7:32 PM EST Ethel Carrillo MD POINT OF CARE TEST O NIKA Performing Organization Address [facility] Co de Phone Number [facility] [place] [address] * POC, GLUCOSE (06/12/2024 3:41 PM EST) Glucometer, POC 113 65 - 199 mg/dL 06/12/2024 3:41 PM EST [facility] Comment:Supplemental ranges: <140 mg/dL before meals <180 mg/dL all other times of the day. Blood CAPILLARY BLOOD / Unknown 06/12/2024 3:41 PM EST 06/12/2024 3:41 PM EST Ethel Carrillo MD POINT OF CARE TEST Abimael MAHER Performing Organization Address [facility] Co de Phone Number [facility] [place] [address] * Potassium (06/12/2024 2:19 PM EST) Potassium 4.5 3.5 - 5.0 mMol/L 06/12/2024 2:45 PM EST [facility] Blood VENOUS BLOOD SPECIMEN / Unknown Venipuncture / Unknown 06/12/2024 2:19 PM EST 06/12/2024 2:23 PM EST Shahnaz Scanlon MD CHEMISTRY ORDERABLES Performing Organization Address [facility] Co de Phone Number [facility] [place] [address] * (ABNORMAL) POC, GLUCOSE (06/12/2024 11:21 AM EST) Glucometer, POC 207(H) 65 - 199 mg/dL 06/12/2024 11:21 AM EST [facility] Comment:Supplemental ranges: <140 mg/dL before meals <180 mg/dL all other times of the day. Blood CAPILLARY BLOOD / Unknown 06/12/2024 11:21 AM EST 06/12/2024 11:22 AM EST Ethel Carrillo MD POINT OF CARE TEST O NIKA Performing Organization Address City/[facility] Co de Phone Number [facility] [place] [address] * POC, GLUCOSE (06/12/2024 8:00 AM EST) Glucometer, POC 169 65 - 199 mg/dL 06/12/2024 8:01 AM EST [facility] Comment:Supplemental ranges: <140 mg/dL before meals <180 mg/dL all other times of the day. Blood CAPILLARY BLOOD / Unknown 06/12/2024 8:00 AM EST 06/12/2024 8:01 AM EST Ethel Carrillo MD POINT OF CARE TEST O NIKA Performing Organization Address [facility] Co de Phone Number [facility] [place] [address] * POC, GLUCOSE (06/12/2024 4:25 AM EST) Glucometer, POC 132 65 - 199 mg/dL 06/12/2024 4:26 AM EST [facility] Comment:Supplemental ranges: <140 mg/dL before meals <180 mg/dL all other times of the day. Blood CAPILLARY BLOOD / Unknown 06/12/2024 4:25 AM EST 06/12/2024 4:26 AM EST Ethel Carrillo MD POINT OF CARE TEST O NIKA Performing Organization Address City/[facility] Co de Phone Number [facility] [place] [address] * Heparin (unfractionated) Level (06/12/2024 3:03 AM EST) UF Heparin 0.55 IU/mL 06/12/2024 3:44 AM [facility] Comment: Heparin (anti-Xa) levels should [...] MD HEMATOLOGY ORDERABLE S Performing Organization Address City/State/[facility] Co de Phone Number [facility] [place] [address] * (ABNORMAL) CBC (with Diff) (06/12/2024 3:03 AM EST) White Blood Cell 9.69(H) 4.00 - 9.50 x10(3)/mc L 06/12/2024 3:36 AM [facility] Red Blood Cell 5.05 4.58 - 5.54 x10(6)/mc L 06/12/2024 3:36 AM [facility] Hemoglobin 15.2 13.7 - 16.5 [...] Shahnaz Scanlon MD HEMATOLOGY ORDERABLE S [facility] [place] [address] * Magnesium (06/12/2024 3:03 AM EST) Pathologist [facility] Magnesium 0.79 0.69 - 1.07 mMol/L 06/12/2024 4:01 AM [facility] Blood VENOUS BLOOD SPECIMEN / Unknown Venipuncture / Unknown 06/12/2024 3:03 AM EST 06/12/2024 3:30 AM EST Shahnaz Scanlon [place] [address] * (ABNORMAL) Basic Metabolic Panel (06/12/2024 3:03 [...] EST Shahnaz Scanlon MD CHEMISTRY ORDERABLES [facility] [place] [address] * POC, GLUCOSE (06/11/2024 11:56 PM EST) Glucometer, POC 135 65 - 199 mg/dL 06/11/2024 11:56 PM EST [facility] Comment:Supplemental ranges: <140 mg/dL before meals <180 mg/dL all other times of the day. Blood CAPILLARY BLOOD / Unknown 06/11/2024 11:56 PM EST 06/11/2024 11:56 PM EST Ethel Carrillo MD POINT OF CARE TEST O NIKA Performing Organization Address City/[facility]/ZIP Co de Phone Number [facility] [place] [address] * (ABNORMAL) POC, GLUCOSE (06/11/2024 8:25 PM EST) Glucometer, POC 210(H) 65 - 199 mg/dL 06/11/2024 8:26 PM EST [facility] Comment:Supplemental ranges: <140 mg/dL before meals <180 mg/dL all other times of the day. Blood CAPILLARY BLOOD / Unknown 06/11/2024 8:25 PM EST 06/11/2024 8:26 PM EST Etehl Carrillo MD POINT OF CARE TEST O NIKA [facility] [place] [address] * POC, GLUCOSE (06/11/2024 4:24 PM EST) Glucometer, POC 81 65 - 199 mg/dL 06/11/2024 4:24 PM EST [facility] Comment:Supplemental ranges: <140 mg/dL before meals <180 mg/dL all other times of the day. Blood CAPILLARY BLOOD / Unknown 06/11/2024 4:24 PM EST 06/11/2024 4:25 PM EST Ethel Carrillo MD POINT OF CARE TEST O RDERAPIETER Performing Organization Address [facility] Co de Phone Number [facility] [place] [address] * (ABNORMAL) POC, GLUCOSE (06/11/2024 11:08 AM EST) Glucometer, POC 233(H) 65 - 199 mg/dL 06/11/2024 11:08 AM EST [facility] Comment:Supplemental ranges: <140 mg/dL before meals <180 mg/dL all other times of the day. Blood CAPILLARY BLOOD / Unknown 06/11/2024 11:08 AM EST 06/11/2024 11:08 AM EST Ethel Carrillo MD POINT OF CARE TEST O NIKA Performing Organization Address [facility] de Phone Number [facility] [place] [address] * POC, GLUCOSE (06/11/2024 7:48 AM EST) Glucometer, POC 184 65 - 199 mg/dL 06/11/2024 7:49 AM EST [facility] Comment:Supplemental ranges: <140 mg/dL before meals <180 mg/dL all other times of the day. Blood CAPILLARY BLOOD / Unknown 06/11/2024 7:48 AM EST 06/11/2024 7:49 AM EST Melida Valdes MD POINT OF CARE TEST O NIKA Performing Organization Address [facility] Co de Phone Number [facility] [place] [address] * Heparin (unfractionated) Level (06/11/2024 5:31 AM EST) UF Heparin 0.55 IU/mL 06/11/2024 6:10 AM EST [facility] Comment: Heparin (anti-Xa) levels should [...] MD HEMATOLOGY ORDERABLE S Performing Organization Address [facility]/ZIP Co de Phone Number [facility] [place] [address] * POC, GLUCOSE (06/11/2024 3:57 AM EST) Glucometer, POC 132 65 - 199 mg/dL 06/11/2024 3:58 AM EST [facility] Comment:Supplemental ranges: <140 mg/dL before meals <180 mg/dL all other times of the day. Blood CAPILLARY BLOOD / Unknown 06/11/2024 3:57 AM EST 06/11/2024 3:58 AM EST Melida Valdes MD POINT OF CARE TEST O RDERABLES Performing Organization Address [facility]/ZIP Co de Phone Number [facility] [place] [address] * (ABNORMAL) CBC (with Diff) (06/11/2024 2:13 AM EST) White Blood Cell 9.91(H) 4.00 - 9.50 x10(3)/mc L 06/11/2024 2:26 AM EST [facility] Red Blood Cell 5.13 4.58 [...] - 0.40 x10(3)/mc L 06/11/2024 2:26 [address] [facility] Basophil % 0.7 % 06/11/2024 [...] Shahnaz Scanlon MD HEMATOLOGY ORDERABLE S [facility] [place] [address] * Magnesium (06/11/2024 2:13 AM EST) Magnesium 0.83 0.69 - 1.07 mMol/L 06/11/2024 2:51 AM [facility] Blood VENOUS BLOOD SPECIMEN / Unknown Venipuncture / Unknown 06/11/2024 2:13 AM EST 06/11/2024 2:19 AM EST Shahnaz Scanlon MD CHEMISTRY ORDERABLES [facility] [place] [address] * (ABNORMAL) Basic Metabolic Panel (06/11/2024 2:13 AM EST) Glucose 148 65 - 199 mg/dL 06/11/2024 2:51 AM [facility] Comment:Glucose Concentratio n >=200 mg/dL plus symptoms is consistent with Diabetes Mellitus. Blood Urea Nitrogen 24(H) 10 - 20 mg/dL 06/11/2024 2:51 AM [facility] Creatinine 1.06 0.80 - 1.50 mg/dL 06/11/2024 2:51 AM [facility] Sodium 134(L) 135 - 145 mMol/L 06/11/2024 2:51 AM [facility] Potassium 4.1 3.5 - 5.0 mMol/L 06/11/2024 2:51 AM [facility] Chloride 96(L) 98 - 107 mMol/L 06/11/2024 2:51 AM [facility] Carbon Dioxide 28 22 - 31 mMol/L 06/11/2024 2:51 AM [facility] Anion Gap 10 5 - 15 mMol/L 06/11/2024 2:51 AM [facility] Calcium 9.4 8.5 - 10.5 mg/dL 06/11/2024 2:51 AM [facility] Est Glomerular Filtration Rate - Male 77 mL/min/1. 73 m?? 06/11/2024 2:51 AM [facility] Comment: [...] Scanlon MD CHEMISTRY ORDERABLES Performing Organization Address [facility] Co de Phone Number [facility] [place] [address] * POC, GLUCOSE (06/11/2024 12:50 AM EST) Glucometer, POC 144 65 - 199 mg/dL 06/11/2024 12:51 AM EST [facility] Comment:Supplemental ranges: <140 mg/dL before meals <180 mg/dL all other times of the day. Blood CAPILLARY BLOOD / Unknown 06/11/2024 12:50 AM EST 06/11/2024 12:51 AM EST Melida Valdes MD POINT OF CARE TEST O NIKA Performing Organization Address [facility] Phone Number [facility] [place] [address] * (ABNORMAL) POC, GLUCOSE (06/10/2024 7:22 PM EST) Glucometer, POC 236(H) 65 - 199 mg/dL 06/10/2024 7:22 PM EST [facility] Comment:Supplemental ranges: <140 mg/dL before meals <180 mg/dL all other times of the day. Blood CAPILLARY BLOOD / Unknown 06/10/2024 7:22 PM EST 06/10/2024 7:22 PM EST Melida Valdes MD POINT OF CARE TEST O NIKA Performing Organization Address City/[facility] Co de Phone Number [facility] [place] [address] * (ABNORMAL) Blood Gas, Venous (06/10/2024 5:42 PM EST) pH, Venous 7.34 7.32 - 7.42 06/10/2024 5:50 PM [facility] PCO2, Venous 52 38 - 58 mmHg 06/10/2024 5:50 PM [facility] PO2, Venous 24 16 - 65 mmHg 06/10/2024 5:50 PM [facility] Bicarbonate, Venous 27.4 22 - [...] Venous 0.5 <=1.5 % 06/10/2024 5:50 PM [facility] Sodium, Venous 137 135 - 145 mmol/L 06/10/2024 5:50 PM [facility] Chloride, Venous 96(L) 98 - 107 mmol/L 06/10/2024 5:50 PM [facility] Potassium, Venous 4.6 3.5 - 5.0 mmol/L 06/10/2024 5:50 PM [facility] Ionized Calcium, Venous 1.23 1.15 - 1.33 mmol/L 06/10/2024 5:50 PM EST [facility] Glucose, Venous 114 65 - 199 mg/dL 06/10/2024 5:50 PM EST [facility] Comment:Glucose Concentratio n >=200 mg/dL plus symptoms is consistent with Diabetes Mellitus. Lactate, Venous 1.1 0.5 - 2.2 mmol/L 06/10/2024 5:50 PM EST [facility] Blood Gas Source Venous 06/10/20 5:50 PM EST [facility] Blood VENOUS BLOOD SPECIMEN / Unknown Blood Gas Venous / Unknown 06/10/2024 5:42 PM EST 06/10/2024 5:47 PM EST Melida Valdes MD CHEMISTRY ORDERABLES Performing Organization Address [facility] Co de Phone Number [facility] [place] [address] * POC, GLUCOSE (06/10/2024 5:35 PM EST) Glucometer, POC 123 65 - 199 mg/dL 06/10/2024 5:35 PM EST [facility] Comment:Supplemental ranges: <140 mg/dL before meals <180 mg/dL all other times of the day. Blood CAPILLARY BLOOD / Unknown 06/10/2024 5:35 PM EST 06/10/2024 5:35 PM EST Melida Valdes MD POINT OF CARE TEST O RDERABLES [facility] [place] [address] * (ABNORMAL) POC, GLUCOSE (06/10/2024 11:25 AM EST) Glucometer, POC 216(H) 65 - 199 mg/dL 06/10/2024 11:25 AM EST [facility] Comment:Supplemental ranges: <140 mg/dL before meals <180 mg/dL all other times of the day. Blood CAPILLARY BLOOD / Unknown 06/10/2024 11:25 AM EST 06/10/2024 11:25 AM EST Melida Valdes MD POINT OF CARE TEST O NIKA Performing Organization Address [facility] Co de Phone Number [facility] [place] [address] * (ABNORMAL) POC, GLUCOSE (06/10/2024 7:46 AM EST) Glucometer, POC 206(H) 65 - 199 mg/dL 06/10/2024 7:46 AM EST [facility] Comment:Supplemental ranges: <140 mg/dL before meals <180 mg/dL all other times of the day. Blood CAPILLARY BLOOD / Unknown 06/10/2024 7:46 AM EST 06/10/2024 7:46 AM EST Melida Valdes MD POINT OF CARE TEST O NIKA Performing Organization Address [facility] Co de Phone Number [facility] [place] [address] * POC, GLUCOSE (06/10/2024 4:23 AM EST) Glucometer, POC 154 65 - 199 mg/dL 06/10/2024 4:24 AM EST [facility] Comment:Supplemental ranges: <140 mg/dL before meals <180 mg/dL all other times of the day. Blood CAPILLARY BLOOD / Unknown 06/10/2024 4:23 AM EST 06/10/2024 4:24 AM EST Melida Valdes MD POINT OF CARE TEST O NIKA Performing Organization Address City/[facility] Co de Phone Number [facility] [place] [address] * (ABNORMAL) CBC (with Diff) (06/10/2024 1:55 [...] Lymph % 34.9 % 06/10/2024 2:14 AM EST [facility] Lymph Absolute 3.14 0.90 - [...] Shahnaz Scanlon MD HEMATOLOGY ORDERABLE S [facility] [place] [address] * Magnesium (06/10/2024 1:55 AM EST) Magnesium 0.83 0.69 - 1.07 mMol/L 06/10/2024 2:37 AM [facility] Blood VENOUS BLOOD SPECIMEN / Unknown Venipuncture / Unknown 06/10/2024 1:55 AM EST 06/10/2024 2:05 AM EST Shahnaz Scanlon MD CHEMISTRY ORDERABLES [facility] [place] [address] * (ABNORMAL) Basic Metabolic Panel (06/10/2024 1:55 [...] 73 m?? 06/10/2024 2:37 AM EST [facility] Comment: This patient's estimated GFR [...] Scanlon MD CHEMISTRY ORDERABLES Performing Organization Address [facility] Co de Phone Number [facility] [place] [address] * Heparin (unfractionated) Level (06/10/2024 1:54 AM EST) UF Heparin 0.56 IU/mL 06/10/2024 2:41 AM EST [facility] Comment: Heparin (anti-Xa) levels should [...] MD HEMATOLOGY ORDERABLE S Performing Organization Address [facility] Co de Phone Number [facility] [place] [address] * POC, GLUCOSE (06/10/2024 12:05 AM EST) Glucometer, POC 125 65 - 199 mg/dL 06/10/2024 12:05 AM EST [facility] Comment:Supplemental ranges: <140 mg/dL before meals <180 mg/dL all other times of the day. Blood CAPILLARY BLOOD / Unknown 06/10/2024 12:05 AM EST 06/10/2024 12:05 AM EST Melida Valdes MD POINT OF CARE TEST O NIKA Performing Organization Address City/[facility]/ZIP Co de Phone Number [facility] [place] [address] * POC, GLUCOSE (06/09/2024 8:36 PM EST) Glucometer, POC 197 65 - 199 mg/dL 06/09/2024 8:36 PM EST [facility] Comment:Supplemental ranges: <140 mg/dL before meals <180 mg/dL all other times of the day. Blood CAPILLARY BLOOD / Unknown 06/09/2024 8:36 PM EST 06/09/2024 8:36 PM EST Melida Valdes MD POINT OF CARE TEST O NIKA Performing Organization Address City/[facility]/ZIP Co de Phone Number [facility] [place] [address] * POC, GLUCOSE (06/09/2024 5:27 PM EST) Glucometer, POC 174 65 - 199 mg/dL 06/09/2024 5:28 PM EST [facility] Comment:Supplemental ranges: <140 mg/dL before meals <180 mg/dL all other times of the day. Blood CAPILLARY BLOOD / Unknown 06/09/2024 5:27 PM EST 06/09/2024 5:28 PM EST Melida Valdes MD POINT OF CARE TEST O NIKA [facility] [place] [address] * (ABNORMAL) POC, GLUCOSE (06/09/2024 11:52 AM EST) Glucometer, POC 211(H) 65 - 199 mg/dL 06/09/2024 11:52 AM EST [facility] Comment:Supplemental ranges: <140 mg/dL before meals <180 mg/dL all other times of the day. Blood CAPILLARY BLOOD / Unknown 06/09/2024 11:52 AM EST 06/09/2024 11:52 AM EST Melida Valdes MD POINT OF CARE TEST O NIKA Performing Organization Address City/[facility]/ZIP Co de Phone Number [facility] [place] [address] * Potassium (06/09/2024 8:25 AM EST) Potassium 4.6 3.5 - 5.0 mMol/L 06/09/2024 10:09 AM EST [facility] Blood VENOUS BLOOD SPECIMEN / Unknown Venipuncture / Unknown 06/09/2024 8:25 AM EST 06/09/2024 8:42 AM EST Shahnaz Scanlon MD CHEMISTRY ORDERABLES [facility] [place] [address] * (ABNORMAL) POC, GLUCOSE (06/09/2024 8:10 AM EST) Glucometer, POC 209(H) 65 - 199 mg/dL 06/09/2024 8:10 AM EST [facility] Comment:Supplemental ranges: <140 mg/dL before meals <180 mg/dL all other times of the day. Blood CAPILLARY BLOOD / Unknown 06/09/2024 8:10 AM EST 06/09/2024 8:11 AM EST Melida Valdes MD POINT OF CARE TEST O RDNICOLLEBLES Performing Organization Address [facility] Co de Phone Number [facility] [place] [address] * POC, GLUCOSE (06/09/2024 4:40 AM EST) Glucometer, POC 131 65 - 199 mg/dL 06/09/2024 4:40 AM EST [facility] Comment:Supplemental ranges: <140 mg/dL before meals <180 mg/dL all other times of the day. Blood CAPILLARY BLOOD / Unknown 06/09/2024 4:40 AM EST 06/09/2024 4:41 AM EST Melida Valdes MD POINT OF CARE TEST O NIKA Performing Organization Address [facility] de Phone Number [facility] [place] [address] * Heparin (unfractionated) Level (06/09/2024 2:12 AM EST) UF Heparin 0.55 IU/mL 06/09/2024 2:33 AM EST [facility] Comment: Heparin (anti-Xa) levels should [...] Shahnaz Scanlon MD HEMATOLOGY ORDERABLE S [facility] [place] [address] * (ABNORMAL) CBC (with Diff) (06/09/2024 2:12 [...] - 0.04 x10(3)/mc L 06/09/2024 2:[address] [facility] Blood VENOUS BLOOD SPECIMEN / Unknown Venipuncture / Unknown 06/09/2024 2:12 AM EST 06/09/2024 2:21 AM EST Shahnaz Scanlon MD HEMATOLOGY ORDERABLE S [facility] [place] [address] * Magnesium (06/09/2024 2:12 AM EST) Pathologist [facility] Magnesium 0.83 0.69 - 1.07 mMol/L 06/09/2024 2:52 AM [facility] Blood VENOUS BLOOD SPECIMEN / Unknown Venipuncture / Unknown 06/09/2024 2:12 AM EST 06/09/2024 2:22 AM EST Shahnaz Scanlon MD CHEMISTRY ORDERABLES Performing Organization Address City/[facility]/ZIP Co de Phone Number [facility] [place] [address] * (ABNORMAL) Basic Metabolic Panel (06/09/2024 2:12 AM EST) [facility] Glucose 147 65 - 199 mg/dL 06/09/2024 [...] - 10.5 mg/dL 06/09/2024 2:52 AM EST [facility] Est Glomerular Filtration Rate - Male 73 mL/min/1. 73 m?? 06/09/2024 2:52 AM EST [facility] Comment: This patient's estimated GFR [...] Scanlon MD CHEMISTRY ORDERABLES Performing Organization Address City/[facility]/ZIP Co de Phone Number [facility] [place] [address] * POC, GLUCOSE (06/09/2024 12:34 AM EST) Glucometer, POC 186 65 - 199 mg/dL 06/09/2024 12:34 AM EST [facility] Comment:Supplemental ranges: <140 mg/dL before meals <180 mg/dL all other times of the day. Blood CAPILLARY BLOOD / Unknown 06/09/2024 12:34 AM EST 06/09/2024 12:34 AM EST Melida Valdes MD POINT OF CARE TEST O RDERABLES Performing Organization Address City/[facility]/ZIP Co de Phone Number [facility] [place] [address] * POC, GLUCOSE (06/08/2024 8:27 PM EST) Glucometer, POC 176 65 - 199 mg/dL 06/08/2024 8:28 PM EST [facility] Comment:Supplemental ranges: <140 mg/dL before meals <180 mg/dL all other times of the day. Blood CAPILLARY BLOOD / Unknown 06/08/2024 8:27 PM EST 06/08/2024 8:28 PM EST Melida Valdes MD POINT OF CARE TEST O RDERAPIETER Performing Organization Address City/[facility]/ZIP Co de Phone Number [facility] [place] [address] * POC, GLUCOSE (06/08/2024 4:16 PM EST) Glucometer, POC 159 65 - 199 mg/dL 06/08/2024 4:16 PM EST [facility] Comment:Supplemental ranges: <140 mg/dL before meals <180 mg/dL all other times of the day. Blood CAPILLARY BLOOD / Unknown 06/08/2024 4:16 PM EST 06/08/2024 4:16 PM EST Melida Valdes MD POINT OF CARE TEST O RDERAPIETER Performing Organization Address [facility] Co de Phone Number [facility] [place] [address] * (ABNORMAL) POC, GLUCOSE (06/08/2024 12:35 PM EST) Glucometer, POC 226(H) 65 - 199 mg/dL 06/08/2024 12:35 PM EST [facility] Comment:Supplemental ranges: <140 mg/dL before meals <180 mg/dL all other times of the day. Blood CAPILLARY BLOOD / Unknown 06/08/2024 12:35 PM EST 06/08/2024 12:35 PM EST Melida Valdes MD POINT OF CARE TEST O RDERABLES Performing Organization Address City/[facility]/ZIP Co de Phone Number [facility] [place] [address] * POC, GLUCOSE (06/08/2024 8:10 AM EST) Glucometer, POC 190 65 - 199 mg/dL 06/08/2024 8:14 AM EST [facility] Comment:Supplemental ranges: <140 mg/dL before meals <180 mg/dL all other times of the day. Blood CAPILLARY BLOOD / Unknown 06/08/2024 8:10 AM EST 06/08/2024 8:14 AM EST Melida Valdes MD POINT OF CARE TEST O NIKA Performing Organization Address [facility] Co de Phone Number [facility] [place] [address] * POC, GLUCOSE (06/08/2024 4:09 AM EST) Glucometer, POC 151 65 - 199 mg/dL 06/08/2024 4:10 AM EST [facility] Comment:Supplemental ranges: <140 mg/dL before meals <180 mg/dL all other times of the day. Blood CAPILLARY BLOOD / Unknown 06/08/2024 4:09 AM EST 06/08/2024 4:10 AM EST Melida Valdes MD POINT OF CARE TEST Abimael MAHER Performing Organization Address [facility] Co de Phone Number [facility] [place] [address] * Heparin (unfractionated) Level (06/08/2024 3:21 AM EST) UF Heparin 0.46 IU/mL 06/08/2024 3:41 AM EST [facility] Comment: Heparin (anti-Xa) levels should [...] Shahnaz Scanlon MD HEMATOLOGY ORDERABLE S [facility] [place] [address] * (ABNORMAL) CBC (with Diff) (06/08/2024 3:21 AM EST) White Blood Cell 9.92(H) 4.00 - 9.50 x10(3)/mc L 06/08/2024 3:34 [address] [facility] Red Blood Cell 5.09 4.58 - 5.54 x10(6)/mc L 06/08/2024 3:34 AM [facility] Hemoglobin 15.1 13.7 - 16.5 [...] - 0.10 x10(3)/mc L 06/08/2024 3:34 AM [facility] [...] MD HEMATOLOGY ORDERABLE S Performing Organization Address City/[facility]/ZIP Co de Phone Number [facility] [place] [address] * Magnesium (06/08/2024 3:21 AM EST) Magnesium 0.84 0.69 - 1.07 mMol/L 06/08/2024 3:59 AM [facility] Blood VENOUS BLOOD SPECIMEN / Unknown Venipuncture / Unknown 06/08/2024 3:21 AM EST 06/08/2024 3:27 AM EST Shahnaz Scanlon MD CHEMISTRY ORDERABLES Performing Organization Address [facility] Co de Phone Number [facility] [place] [address] * (ABNORMAL) Basic Metabolic Panel (06/08/2024 3:21 [...] - 5.0 mMol/L 06/08/2024 3:59 AM EST [facility] Chloride 98 98 - 107 [...] EST Shahnaz Scanlon MD CHEMISTRY ORDERABLES [facility] [place] [address] * POC, GLUCOSE (06/07/2024 11:57 PM EST) [facility] Signature Glucometer, POC 188 65 - 199 mg/dL 06/07/2024 11:57 PM [facility] Comment:Supplemental ranges: <140 mg/dL before meals <180 mg/dL all other times of the day. Blood CAPILLARY BLOOD / Unknown 06/07/2024 11:57 PM EST 06/07/2024 11:58 PM EST Melida Valdes MD POINT OF CARE TEST O NIKA Performing Organization Address [facility] Co de Phone Number [facility] [place] [address] * POC, GLUCOSE (06/07/2024 8:05 PM EST) Glucometer, POC 118 65 - 199 mg/dL 06/07/2024 8:06 PM EST [facility] Comment:Supplemental ranges: <140 mg/dL before meals <180 mg/dL all other times of the day. Blood CAPILLARY BLOOD / Unknown 06/07/2024 8:05 PM EST 06/07/2024 8:06 PM EST Melida Valdes MD POINT OF CARE TEST Abimael MAHER Performing Organization Address [facility] Phone Number [facility] [place] [address] * Potassium (06/07/2024 5:22 PM EST) Potassium 4.6 3.5 - 5.0 mMol/L 06/07/2024 5:59 PM EST [facility] Blood VENOUS BLOOD SPECIMEN / Unknown Venipuncture / Unknown 06/07/2024 5:22 PM EST 06/07/2024 5:26 PM EST Shahnaz Scanlon MD CHEMISTRY ORDERABLES Performing Organization Address [facility] Co de Phone Number [facility] [place] [address] * POC, GLUCOSE (06/07/2024 4:31 PM EST) Glucometer, POC 174 65 - 199 mg/dL 06/07/2024 4:34 PM EST [facility] Comment:Supplemental ranges: <140 mg/dL before meals <180 mg/dL all other times of the day. Blood CAPILLARY BLOOD / Unknown 06/07/2024 4:31 PM EST 06/07/2024 4:34 PM EST Melida Valdes MD POINT OF CARE TEST O RDERABLES [facility] [address] * MRI Cardiac Morphology Function wwo Contrast (06/07/2024 1:10 PM EST) WORKSTATION ID [id number] [facility] Anatomical Region Laterality Modality Magnetic Resonan ce [...] - Mildly dilated left ventricle size with [id number] decreased LV systolic function. ??LV ejection fraction [...] who have questions please contact the health lawn care professional that requested your imaging first. ? Narrative [...] VENTRICLE: Mildly dilated left ventricle size with srxwndph-fu-odydgpms decreased LV systolic function. ??LV ejection fraction [...] VENTRICLE: Mildly dilated left ventricle size with snvcvhjz-jf-[id number] decreasedLV systolic function. LV ejection fraction is [...] - Mildly dilated left ventricle size with ktcneszy-se-lrydtquv decreasedLV systolic function. LV ejection fraction is [...] patients who have questions please contactthe health lawn care professional that requested your imaging first. Delroy Fofana MD [facility] MRI ORDERABLES * (ABNORMAL) POC, GLUCOSE (06/07/2024 11:05 AM EST) [facility] Glucometer, POC 221(H) 65 - 199 mg/dL 06/07/2024 11:06 AM EST [facility] Comment:Supplemental ranges: <140 mg/dL before meals <180 mg/dL all other times of the day. Blood CAPILLARY BLOOD / Unknown 06/07/2024 11:05 AM EST 06/07/2024 11:06 AM EST Melida Valdes MD POINT OF CARE TEST O NIKA Performing Organization Address City/[facility] Co de Phone Number [facility] [place] [address] * (ABNORMAL) POC, GLUCOSE (06/07/2024 11:03 AM EST) Glucometer, POC 250(H) 65 - 199 mg/dL 06/07/2024 11:04 AM EST [facility] Comment:Supplemental ranges: <140 mg/dL before meals <180 mg/dL all other times of the day. Blood CAPILLARY BLOOD / Unknown 06/07/2024 11:03 AM EST 06/07/2024 11:04 AM EST Melida Valdes MD POINT OF CARE TEST O NIKA Performing Organization Address [facility] Co de Phone Number [facility] [place] [address] * Potassium (06/07/2024 9:44 AM EST) Potassium 4.7 3.5 - 5.0 mMol/L 06/07/2024 10:23 AM EST [facility] Blood VENOUS BLOOD SPECIMEN / Unknown Venipuncture / Unknown 06/07/2024 9:44 AM EST 06/07/2024 9:57 AM EST Shahnaz Scanlon MD CHEMISTRY ORDERABLES Performing Organization Address City/[facility] Co de Phone Number [facility] [place] [address] * POC, GLUCOSE (06/07/2024 7:45 AM EST) Glucometer, POC 175 65 - 199 mg/dL 06/07/2024 7:45 AM EST [facility] Comment:Supplemental ranges: <140 mg/dL before meals <180 mg/dL all other times of the day. Blood CAPILLARY BLOOD / Unknown 06/07/2024 7:45 AM EST 06/07/2024 7:46 AM EST Melida Valdes MD POINT OF CARE TEST O RDERABLES [facility] [place] [address] * XR Chest PA & Lateral (Generic) (06/07/2024 7:03 AM EST) WORKSTATION ID [id number] RAD Anatomical Region Laterality Modality Chest N/A [...] who have questions please contact the health lawn care professional that requested your imaging first. ? Narrative [...] patients who have questions please contactthe health lawn care professional that requested your imaging first. Shahnaz Scanlon MD IMG DX ORDERABLES * POC, GLUCOSE (06/07/2024 4:25 AM EST) [facility] Glucometer, POC 127 65 - 199 mg/dL 06/07/2024 4:26 AM EST [facility] Comment:Supplemental ranges: <140 mg/dL before meals <180 mg/dL all other times of the day. Blood CAPILLARY BLOOD / Unknown 06/07/2024 4:25 AM EST 06/07/2024 4:26 AM EST Melida Valdes MD POINT OF CARE TEST O RDERABLES [facility] [place] [address] * Heparin (unfractionated) Level (06/07/2024 2:41 AM EST) Pathologist [facility] UF Heparin 0.45 IU/mL 06/07/2024 3:03 AM EST [facility] Comment: Heparin (anti-Xa) levels should [...] Shahnaz Scanlon MD HEMATOLOGY ORDERABLE S [facility] [place] [address] * (ABNORMAL) CBC (with Diff) (06/07/2024 2:41 AM EST) [facility] White Blood Cell 10.06(H) 4.00 - 9.50 x10(3)/mc L 06/07/2024 2:58 AM EST [facility] Red Blood Cell 5.02 4.58 [...] % 3.6 % 06/07/2024 2:58 AM EST [facility] Eos Absolute 0.36 0.00 - 0.40 x10(3)/mc L 06/07/2024 2:58 AM EST [facility] Basophil % 0.8 % 06/07/2024 2:58 AM EST [facility] Baso Absolute 0.08 0.00 - 0.10 x10(3)/mc L 06/07/2024 2:58 AM EST [facility] Immature Gran % 0.6 % 2:58 AM [facility] Immature Gran Absolute 0.06(H) 0.00 - 0.04 x10(3)/mc L 06/07/2024 2:58 AM [facility] Blood VENOUS BLOOD SPECIMEN / Unknown Venipuncture / Unknown 06/07/2024 2:41 AM EST 06/07/2024 2:52 AM EST Shahnaz Scanlon MD HEMATOLOGY ORDERABLE S [facility] [place] [address] * Magnesium (06/07/2024 2:41 AM EST) Pathologist [facility] Magnesium 0.92 0.69 - 1.07 mMol/L 06/07/2024 3:25 AM [facility] Blood VENOUS BLOOD SPECIMEN / Unknown Venipuncture / Unknown 06/07/2024 2:41 AM EST 06/07/2024 2:51 AM EST Shahnaz Scanlon MD CHEMISTRY ORDERABLES [facility] [place] [address] * (ABNORMAL) Basic Metabolic Panel (06/07/2024 2:41 AM EST) Glucose 140 65 - 199 mg/dL 06/07/2024 3:25 AM EST [facility] Comment:Glucose Concentratio n >=200 mg/dL [...] EST Shahnaz Scanlon MD CHEMISTRY ORDERABLES [facility] [place] [address] * POC, GLUCOSE (06/07/2024 12:08 AM EST) Glucometer, POC 182 65 - 199 mg/dL 06/07/2024 12:09 AM EST [facility] Comment:Supplemental ranges: <140 mg/dL before meals <180 mg/dL all other times of the day. Blood CAPILLARY BLOOD / Unknown 06/07/2024 12:08 AM EST 06/07/2024 12:09 AM EST Melida Valdes MD POINT OF CARE TEST O NIKA Performing Organization Address City/[facility]/ZIP Co de Phone Number [facility] [place] [address] * POC, GLUCOSE (06/06/2024 8:18 PM EST) Glucometer, POC 143 65 - 199 mg/dL 06/06/2024 8:19 PM EST [facility] Comment:Supplemental ranges: <140 mg/dL before meals <180 mg/dL all other times of the day. Blood CAPILLARY BLOOD / Unknown 06/06/2024 8:18 PM EST 06/06/2024 8:19 PM EST Melida Valdes MD POINT OF CARE TEST O NIKA [facility] [place] [address] * POC, GLUCOSE (06/06/2024 3:39 PM EST) Glucometer, POC 147 65 - 199 mg/dL 06/06/2024 3:40 PM EST [facility] Comment:Supplemental ranges: <140 mg/dL before meals <180 mg/dL all other times of the day. Blood CAPILLARY BLOOD / Unknown 06/06/2024 3:39 PM EST 06/06/2024 3:40 PM EST Melida Valdes MD POINT OF CARE TEST O RDERABLES Performing Organization Address City/[facility]/ZIP Co de Phone Number [facility] [place] [address] * Potassium (06/06/2024 2:37 PM EST) Potassium 4.3 3.5 - 5.0 mMol/L 06/06/2024 3:01 PM EST [facility] Blood VENOUS BLOOD SPECIMEN / Unknown Venipuncture / Unknown 06/06/2024 2:37 PM EST 06/06/2024 2:42 PM EST Shahnaz Scanlon MD CHEMISTRY ORDERABLES Performing Organization Address [facility] Co de Phone Number [facility] [place] [address] * (ABNORMAL) POC, GLUCOSE (06/06/2024 1:39 PM EST) Glucometer, POC 317(H) 65 - 199 mg/dL 06/06/2024 1:40 PM EST [facility] Comment:Supplemental ranges: <140 mg/dL before meals <180 mg/dL all other times of the day. Blood CAPILLARY BLOOD / Unknown 06/06/2024 1:39 PM EST 06/06/2024 1:41 PM EST Melida Valdes MD POINT OF CARE TEST O NIKA Performing Organization Address City/[facility]/ZIP Co de Phone Number [facility] [place] [address] * (ABNORMAL) POC, GLUCOSE (06/06/2024 11:34 AM EST) Glucometer, POC 264(H) 65 - 199 mg/dL 06/06/2024 11:35 AM EST [facility] Comment:Supplemental ranges: <140 mg/dL before meals <180 mg/dL all other times of the day. Blood CAPILLARY BLOOD / Unknown 06/06/2024 11:34 AM EST 06/06/2024 11:35 AM EST Melida Valdes MD POINT OF CARE TEST O NIKA Performing Organization Address [facility] Co de Phone Number [facility] [place] [address] * Potassium (06/06/2024 10:17 AM EST) Potassium 4.3 3.5 - 5.0 mMol/L 06/06/2024 10:46 AM EST [facility] Blood VENOUS BLOOD SPECIMEN / Unknown Venipuncture / Unknown 06/06/2024 10:17 AM EST 06/06/2024 10:22 AM EST Shahnaz Scanlon MD CHEMISTRY ORDERABLES Performing Organization Address [facility] Co de Phone Number [facility] [place] [address] * POC, GLUCOSE (06/06/2024 7:57 AM EST) Glucometer, POC 195 65 - 199 mg/dL 06/06/2024 8:03 AM EST [facility] Comment:Supplemental ranges: <140 mg/dL before meals <180 mg/dL all other times of the day. Blood CAPILLARY BLOOD / Unknown 06/06/2024 7:57 AM EST 06/06/2024 8:03 AM EST Melida Valdes MD POINT OF CARE TEST O NIKA Performing Organization Address City/[facility] Co de Phone Number [facility] [place] [address] * POC, GLUCOSE (06/06/2024 6:53 AM EST) Glucometer, POC 187 65 - 199 mg/dL 06/06/2024 6:53 AM EST [facility] Comment:Supplemental ranges: <140 mg/dL before meals <180 mg/dL all other times of the day. Blood CAPILLARY BLOOD / Unknown 06/06/2024 6:53 AM EST 06/06/2024 6:54 AM EST Melida Valdes MD POINT OF CARE TEST O RDERABLES Performing Organization Address City/[facility]/ZIP Co de Phone Number [facility] [place] [address] * (ABNORMAL) Hemoglobin A1c (06/06/2024 3:33 AM EST) [facility] Hemoglobin A1c 7.1(H) 4.3 - 5.6 % 06/06/2024 1:01 PM EST [facility] Comment: Per ADA guidelines, without [...] red blood cell turnover may not be disability representative of glycemic control. Reference Interval: 4.3 - 5.6% 5.7 - 6.4%: Consistent with prediabetes >=6.5%: Consistent with diagnosis of diabetes mellitus Estimated Average Glucose 157 mg/dL 06/06/2024 1:01 PM EST [facility] Blood VENOUS BLOOD SPECIMEN / Unknown Venipuncture / Unknown 06/06/2024 3:33 AM EST 06/06/2024 3:48 AM EST Alejandra Baumann APRN CHEMISTRY ORDERAB LES [facility] [place] [address] * Heparin (unfractionated) Level (06/06/2024 3:33 AM EST) [facility] UF Heparin 0.36 IU/mL 06/06/2024 3:59 AM EST [facility] Comment: Heparin (anti-Xa) levels should [...] MD HEMATOLOGY ORDERABLE S Performing Organization Address City/State/[facility] Co de Phone Number [facility] [place] [address] * (ABNORMAL) CBC (with Diff) (06/06/2024 3:33 AM EST) White Blood Cell 9.81(H) 4.00 - 9.50 x10(3)/mc L 06/06/2024 3:54 AM EST [facility] Red Blood Cell 4.91 4.58 - 5.54 x10(6)/mc L 06/06/2024 3:54 AM EST [facility] Hemoglobin 14.6 13.7 - 16.5 g/dL 06/06/2024 3:54 AM EST [facility] Hematocrit 45.4 40.5 - 48.5 % 06/06/2024 3:54 AM EST [facility] Mean Cell Volume 92.5 82.9 - 93.1 fL 06/06/2024 3:54 AM EST [facility] Mean Cell Hemoglobin 29.7 27.5 [...] - 0.90 x10(3)/mc L 06/06/2024 3:54 AM [facility] Eos % 3.0 % 06/06/2024 3:54 AM [facility] Eos Absolute 0.29 0.00 - 0.40 x10(3)/mc L 06/06/2024 3:54 AM [facility] Basophil % 0.9 % 06/06/2024 3:54 AM EST [facility] Baso Absolute 0.09 0.00 - 0.10 x10(3)/mc L 06/06/2024 3:54 AM [facility] Immature Gran % 0.6 % 3:54 AM [facility] Immature Gran Absolute 0.06(H) 0.00 - 0.04 x10(3)/mc L 06/06/2024 3:54 AM EST [facility] Blood VENOUS BLOOD SPECIMEN / Unknown Venipuncture / Unknown 06/06/2024 3:33 AM EST 06/06/2024 3:48 AM EST Shahnaz Scanlon MD HEMATOLOGY ORDERABLE S Performing Organization Address City/[facility]/ZIP Co de Phone Number [facility] [place] [address] * Magnesium (06/06/2024 3:33 AM EST) Magnesium 0.92 0.69 - 1.07 mMol/L 06/06/2024 4:17 AM [facility] Blood VENOUS BLOOD SPECIMEN / Unknown Venipuncture / Unknown 06/06/2024 3:33 AM EST 06/06/2024 3:47 AM EST Shahnaz Scanlon MD CHEMISTRY ORDERABLES [facility] [place] [address] * (ABNORMAL) Basic Metabolic Panel (06/06/2024 3:33 AM EST) Glucose 190 65 - 199 mg/dL 06/06/2024 4:17 AM [facility] Comment:Glucose Concentratio n >=200 mg/dL plus symptoms is consistent with Diabetes Mellitus. Blood Urea Nitrogen 27(H) 10 - 20 mg/dL 06/06/2024 4:17 AM EST [facility] Creatinine 1.12 0.80 - 1.50 mg/dL 06/06/2024 4:17 AM EST [facility] Sodium 136 135 - 145 [...] EST Shahnaz Scanlon MD CHEMISTRY ORDERABLES [facility] [place] [address] * (ABNORMAL) POC, GLUCOSE (06/05/2024 10:31 PM EDT) Glucometer, POC 238(H) 65 - 199 mg/dL 06/05/2024 10:31 PM EDT [facility] Comment:Supplemental ranges: <140 mg/dL before meals <180 mg/dL all other times of the day. Blood CAPILLARY BLOOD / Unknown 06/05/2024 10:31 PM EDT 06/05/2024 10:31 PM EDT Melida Valdes MD POINT OF CARE TEST O NIKA Performing Organization Address [facility] de Phone Number [facility] [place] [address] * (ABNORMAL) POC, GLUCOSE (06/05/2024 4:22 PM EDT) Glucometer, POC 205(H) 65 - 199 mg/dL 06/05/2024 4:22 PM EDT [facility] Comment:Supplemental ranges: <140 mg/dL before meals <180 mg/dL all other times of the day. Blood CAPILLARY BLOOD / Unknown 06/05/2024 4:22 PM EDT 06/05/2024 4:23 PM EDT Melida Valdes MD POINT OF CARE TEST O NIKA Performing Organization Address [facility] de Phone Number [facility] [place] [address] * (ABNORMAL) POC, GLUCOSE (06/05/2024 11:34 AM EDT) Glucometer, POC 211(H) 65 - 199 mg/dL 06/05/2024 11:34 AM EDT [facility] Comment:Supplemental ranges: <140 mg/dL before meals <180 mg/dL all other times of the day. Blood CAPILLARY BLOOD / Unknown 06/05/2024 11:34 AM EDT 06/05/2024 11:34 AM EDT Melida Valdes MD POINT OF CARE TEST O RDERABLES Performing Organization Address [facility] [facility] Co de Phone Number [facility] [place] [address] * Potassium (06/05/2024 9:04 AM EDT) Potassium 4.3 3.5 - 5.0 mMol/L 06/05/2024 9:50 AM EDT [facility] Blood VENOUS BLOOD SPECIMEN / Unknown Venipuncture / Unknown 06/05/2024 9:04 AM EDT 06/05/2024 9:21 AM EDT Shahnaz Scanlon MD CHEMISTRY ORDERABLES Performing Organization Address [facility] Co de Phone Number [facility] [place] [address] * POC, GLUCOSE (06/05/2024 7:27 AM EDT) Pathologist [facility] Glucometer, POC 166 65 - 199 mg/dL 06/05/2024 7:27 AM EDT [facility] Comment:Supplemental ranges: <140 mg/dL before meals <180 mg/dL all other times of the day. Blood CAPILLARY BLOOD / Unknown 06/05/2024 7:27 AM EDT 06/05/2024 7:27 AM EDT Melida Valdes MD POINT OF CARE TEST O RDERABLES Performing Organization Address [facility] Co de Phone Number [facility] [place] [address] * Heparin (unfractionated) Level (06/05/2024 3:44 AM EDT) UF Heparin 0.44 IU/mL 06/05/2024 4:07 AM EDT [facility] Comment: Heparin (anti-Xa) levels should [...] MD HEMATOLOGY ORDERABLE S Performing Organization Address City/State/[facility] Co de Phone Number [facility] [place] [phone] * (ABNORMAL) CBC (with Diff) (06/05/2024 3:44 AM EDT) White Blood Cell 10.83(H) 4.00 - 9.50 x10(3)/mc L 06/05/2024 3:56 AM EDT [facility] Red Blood Cell 5.07 4.58 - 5.54 x10(6)/mc L 06/05/[facility]24 [facility] Hemoglobin 15.3 13.7 - 16.5 g/dL 06/05/2024 3:[facility] Hematocrit 46.8 40.5 - 48.5 % 06/05/2024 3:[facility] Mean Cell Volume 92.3 82.9 - 93.1 fL 06/05/2024 3:[facility] Mean Cell Hemoglobin 30.2 27.5 - 32.1 pg 06/05/2024 3:[facility] Mean Cell Hemoglobin Concentration 32.7 32.0 - 35.7 g/dL 06/05/2024 3:[facility] Platelet 219 145 - 357 x10(3)/mc L 06/05/2024 3:[address] [facility] Mean Platelet Volume 9.4 7.6 - 12.9 fL 06/05/2024 3:[address] [facility] RDW Standard Deviation 46.7(H) 36.0 - 45.0 fL 06/05/2024 3:[address] [facility] RDW coefficient of variation 13.9(H) 11.4 - 13.8 % 06/05/2024 3:[address] [facility] NRBC% auto 0.0 % 06/05/2024 3:[address] [facility] NRBC Absolute <0.01 <0.01 x10(3)/mc L 06/05/2024 3:[address] [facility] Neutrophil % 61.5 % 06/05/2024 3:[address] [facility] Neutrophil Absolute (ANC) - Automated 6.65(H) 1.70 - 6.10 x10(3)/mc L 06/05/2024 3:[address] [facility] Lymph % 24.0 % 06/05/2024 3:[address] [facility] Lymph Absolute 2.60 0.90 - 3.20 x10(3)/mc L 06/05/2024 3:[address] [facility] Monocyte % 10.9 % 06/05/2024 3:[address] [facility] Monocyte Absolute 1.18(H) 0.30 - 0.90 x10(3)/mc L 06/05/2024 3:[address] [facility] Eos % 2.2 % 06/05/2024 3:[address] [facility] Eos Absolute 0.24 0.00 - 0.40 x10(3)/mc L 06/05/2024 3:[address] [facility] Basophil % 0.8 % 06/05/2024 3:56 AM EDT [facility] Baso Absolute 0.09 0.00 - 0.10 x10(3)/mc L 06/05/2024 3:56 AM EDT [facility] Immature Gran % 0.6 % 3:56 AM EDT [facility] Immature Gran Absolute 0.07(H) 0.00 - 0.04 x10(3)/mc L 06/05/2024 3:56 AM EDT [facility] Blood VENOUS BLOOD SPECIMEN / Unknown Venipuncture / Unknown 06/05/2024 3:44 AM EDT 06/05/2024 3:50 AM EDT Shahnaz Scanlon MD HEMATOLOGY ORDERABLE S Performing Organization Address City/[facility]/ZIP Co de Phone Number [facility] [place] [address] * Magnesium (06/05/2024 3:44 AM EDT) Magnesium 0.92 0.69 - 1.07 mMol/L 06/05/2024 4:20 AM EDT [facility] Blood VENOUS BLOOD SPECIMEN / Unknown Venipuncture / Unknown 06/05/2024 3:44 AM EDT 06/05/2024 3:50 AM EDT Shahnaz Scanlon MD CHEMISTRY ORDERABLES Performing Organization Address City/[facility]/ZIP Co de Phone Number [facility] [place] [address] * (ABNORMAL) Basic Metabolic Panel (06/05/2024 3:44 AM EDT) Glucose 155 65 - 199 mg/dL 06/05/2024 4:20 AM EDT [facility] Comment:Glucose Concentratio n >=200 mg/dL plus symptoms is consistent with Diabetes Mellitus. Blood Urea Nitrogen 25(H) 10 - 20 mg/dL 06/05/2024 4:20 AM EDT [facility] Creatinine 1.16 0.80 - 1.50 mg/dL 06/05/2024 4:[address] [facility] Sodium 136 135 - 145 mMol/L 06/05/2024 4:[address] [facility] Potassium 3.9 3.5 - 5.0 mMol/L 06/05/2024 4:[address] [facility] Chloride 95(L) 98 - 107 mMol/L 06/05/2024 4:[address] [facility] Carbon Dioxide 29 22 - 31 mMol/L 06/05/2024 4:[address] [facility] Anion Gap 12 5 - 15 mMol/L 06/05/2024 4:[address] [facility] Calcium 9.2 8.5 - 10.5 mg/dL 06/05/2024 4:[address] [facility] Est Glomerular Filtration Rate - Male 69 mL/min/1. 73 m?? 06/05/2024 4:[address] [facility] Comment: This patient's estimated GFR [...] EDT Shahnaz Scanlon MD CHEMISTRY ORDERABLES [facility] [place] [address] * Potassium (06/04/2024 10:34 PM EDT) Potassium 3.7 3.5 - 5.0 mMol/L 06/04/2024 11:03 PM EDT [facility] Blood VENOUS BLOOD SPECIMEN / Unknown Venipuncture / Unknown 06/04/2024 10:34 PM EDT 06/04/2024 10:39 PM EDT Shahnaz Scanlon MD CHEMISTRY ORDERABLES [facility] [place] [address] * POC, GLUCOSE (06/04/2024 7:43 PM EDT) Glucometer, POC 175 65 - 199 mg/dL 06/04/2024 7:43 PM EDT [facility] Comment:Supplemental ranges: <140 mg/dL before meals <180 mg/dL all other times of the day. Blood CAPILLARY BLOOD / Unknown 06/04/2024 7:43 PM EDT 06/04/2024 7:43 PM EDT Melida Valdes MD POINT OF CARE TEST O RDERABLES Performing Organization Address City/[facility]/ZIP Co de Phone Number [facility] [place] [address] * Potassium (06/04/2024 4:35 PM EDT) Potassium 4.0 3.5 - 5.0 mMol/L 06/04/2024 5:32 PM EDT [facility] Blood VENOUS BLOOD SPECIMEN / Unknown Venipuncture / Unknown 06/04/2024 4:35 PM EDT 06/04/2024 4:40 PM EDT Shahnaz Scanlon MD CHEMISTRY ORDERABLES Performing Organization Address City/[facility]/ZIP Co de Phone Number [facility] [place] [address] * POC, GLUCOSE (06/04/2024 3:26 PM EDT) Glucometer, POC 154 65 - 199 mg/dL 06/04/2024 3:26 PM EDT [facility] Comment:Supplemental ranges: <140 mg/dL before meals <180 mg/dL all other times of the day. Blood CAPILLARY BLOOD / Unknown 06/04/2024 3:26 PM EDT 06/04/2024 3:27 PM EDT Melida Valdes MD POINT OF CARE TEST O RDERABLES Performing Organization Address [facility] Co de Phone Number [facility] [place] [address] * POC, GLUCOSE (06/04/2024 11:09 AM EDT) Glucometer, POC 188 65 - 199 mg/dL 06/04/2024 11:09 AM EDT [facility] Comment:Supplemental ranges: <140 mg/dL before meals <180 mg/dL all other times of the day. Blood CAPILLARY BLOOD / Unknown 06/04/2024 11:09 AM EDT 06/04/2024 11:09 AM EDT Delroy Fofana MD POINT OF CARE TEST ORDERABLES Performing Organization Address [facility] Co de Phone Number [facility] [place] [address] * Heparin (unfractionated) Level (06/04/2024 10:41 AM EDT) UF Heparin 0.43 IU/mL 06/04/2024 11:06 AM EDT [facility] Comment: Heparin (anti-Xa) levels should [...] MD HEMATOLOGY ORDERABLE S Performing Organization Address [facility] de Phone Number [facility] [place] [address] * Potassium (06/04/2024 10:41 AM EDT) Potassium 4.0 3.5 - 5.0 mMol/L 06/04/2024 11:11 AM EDT [facility] Blood VENOUS BLOOD SPECIMEN / Unknown Venipuncture / Unknown 06/04/2024 10:41 AM EDT 06/04/2024 10:46 AM EDT Shahnaz Scanlon MD CHEMISTRY ORDERABLES Performing Organization Address [facility] de Phone Number [facility] [place] [address] * POC, GLUCOSE (06/04/2024 7:11 AM EDT) Glucometer, POC 182 65 - 199 mg/dL 06/04/2024 7:12 AM EDT [facility] Comment:Supplemental ranges: <140 mg/dL before meals <180 mg/dL all other times of the day. Blood CAPILLARY BLOOD / Unknown 06/04/2024 7:11 AM EDT 06/04/2024 7:12 AM EDT Delroy Fofana MD POINT OF CARE TEST ORDERABLES Performing Organization Address [facility]/State/ZIP Co de Phone Number [facility] [place] [address] * Heparin (unfractionated) Level (06/04/2024 4:38 AM EDT) [facility] UF Heparin 0.41 IU/mL 06/04/2024 5:19 AM EDT [facility] Comment: Heparin (anti-Xa) levels should [...] Shahnaz Scanlon MD HEMATOLOGY ORDERABLE S [facility] [place] [address] * (ABNORMAL) CBC (with Diff) (06/04/2024 4:38 AM EDT) [facility] White Blood Cell 11.45(H) 4.00 - 9.50 x10(3)/mc L 06/04/2024 5:12 AM EDT [facility] Red Blood Cell 5.35 4.58 - 5.54 x10(6)/mc L 06/04/2024 5:12 AM EDT [facility] Hemoglobin 16.0 13.7 - 16.5 g/dL 06/04/2024 5:[address] [facility] Hematocrit 49.6(H) 40.5 - 48.5 % 06/04/2024 5:[address] [facility] Mean Cell Volume 92.7 82.9 - 93.1 fL 06/04/2024 5:[address] [facility] Mean Cell Hemoglobin 29.9 27.5 - 32.1 pg 06/04/2024 5:[address] [facility] Mean Cell Hemoglobin Concentration 32.3 32.0 - 35.7 g/dL 06/04/2024 5:[address] [facility] Platelet 222 145 - 357 x10(3)/mc L 06/04/2024 5:[address] [facility] Mean Platelet Volume 9.5 7.6 - 12.9 fL 06/04/2024 5:[address] [facility] RDW Standard Deviation 47.6(H) 36.0 - 45.0 fL 06/04/2024 5:[address] [facility] RDW coefficient of variation 14.1(H) 11.4 - 13.8 % 06/04/2024 5:[address] [facility] NRBC% auto 0.0 % 06/04/2024 5:[address] [facility] NRBC Absolute <0.01 <0.01 x10(3)/mc L 06/04/2024 5:[address] [facility] Neutrophil % 60.3 % 06/04/2024 5:[address] [facility] Neutrophil Absolute (ANC) - Automated 6.91(H) 1.70 - 6.10 x10(3)/mc L 06/04/2024 5:[address] [facility] Lymph % 25.1 % 06/04/2024 5:[address] [facility] Lymph Absolute 2.87 0.90 - 3.20 x10(3)/mc L 06/04/2024 5:[address] [facility] Monocyte % 10.6 % 06/04/2024 5:12 AM EDT [facility] Monocyte Absolute 1.21(H) 0.30 - 0.90 x10(3)/mc L 06/04/2024 5:12 AM EDT [facility] Eos % 2.8 % 06/04/2024 5:12 AM EDT [facility] Eos Absolute 0.32 0.00 - 0.40 x10(3)/mc L 06/04/2024 5:12 AM EDT [facility] Basophil % 0.7 % 06/04/2024 5:12 AM EDT [facility] Baso Absolute 0.08 0.00 - 0.10 x10(3)/mc L 06/04/2024 5:12 AM EDT [facility] Immature Gran % 0.5 % 5:12 AM EDT [facility] Immature Gran Absolute 0.06(H) 0.00 - 0.04 x10(3)/mc L 06/04/2024 5:12 AM EDT [facility] Blood VENOUS BLOOD SPECIMEN / Unknown Venipuncture / Unknown 06/04/2024 4:38 AM EDT 06/04/2024 5:07 AM EDT Shahnaz Scanlon MD HEMATOLOGY ORDERABLE S Performing Organization Address City/State/[facility] Co de Phone Number [facility] [place] [address] * Magnesium (06/04/2024 4:38 AM EDT) Magnesium 0.84 0.69 - 1.07 mMol/L 06/04/2024 5:35 AM EDT [facility] Blood VENOUS BLOOD SPECIMEN / Unknown Venipuncture / Unknown 06/04/2024 4:38 AM EDT 06/04/2024 5:07 AM EDT Shahnaz Scanlon MD CHEMISTRY ORDERABLES [facility] [place] [address] * (ABNORMAL) Basic Metabolic Panel (06/04/2024 4:38 AM EDT) Glucose 118 65 - 199 mg/dL 06/04/2024 5:35 AM EDT [facility] Comment:Glucose Concentratio n >=200 mg/dL plus symptoms is consistent with Diabetes Mellitus. Blood Urea Nitrogen 22(H) 10 - 20 mg/dL 06/04/2024 5:35 AM EDT [facility] Creatinine 1.22 0.80 - 1.50 mg/dL 06/04[facility]24 [facility] Sodium 137 135 - 145 mMol/L 06/04/2024 [facility] Potassium 3.6 3.5 - 5.0 mMol/L 06/04/2024 5:[address] [facility] Chloride 97(L) 98 - 107 mMol/L 06/04/2024 [facility] Carbon Dioxide 29 22 - 31 mMol/L 06/04/2024 5:[address] [facility] Anion Gap 11 5 - 15 mMol/L 06/04/2024 [facility] Calcium 9.0 8.5 - 10.5 mg/dL 06/04/2024 [facility] Est Glomerular Filtration Rate - Male 65 mL/min/1. 73 m?? 06/04/2024 5:[address] [facility] Comment: This patient's estimated GFR [...] Scanlon MD CHEMISTRY ORDERABLES Performing Organization Address [facility] Co de Phone Number [facility] [place] [address] * Heparin (unfractionated) Level (06/03/2024 8:58 PM EDT) UF Heparin 0.27 IU/mL 06/03/2024 9:33 PM EDT [facility] Comment: Heparin (anti-Xa) levels should [...] MD HEMATOLOGY ORDERABLE S Performing Organization Address City/[facility]/ZIP Co de Phone Number [facility] [place] [address] * POC, GLUCOSE (06/03/2024 8:05 PM EDT) Glucometer, POC 136 65 - 199 mg/dL 06/03/2024 8:05 PM EDT [facility] Comment:Supplemental ranges: <140 mg/dL before meals <180 mg/dL all other times of the day. Blood CAPILLARY BLOOD / Unknown 06/03/2024 8:05 PM EDT 06/03/2024 8:05 PM EDT Delroy Fofana MD POINT OF CARE TEST ORDERABLES Performing Organization Address [facility] Co de Phone Number [facility] [place] [address] * POC, GLUCOSE (06/03/2024 5:48 PM EDT) Glucometer, POC 191 65 - 199 mg/dL 06/03/2024 5:48 PM EDT [facility] Comment:Supplemental ranges: <140 mg/dL before meals <180 mg/dL all other times of the day. Blood CAPILLARY BLOOD / Unknown 06/03/2024 5:48 PM EDT 06/03/2024 5:49 PM EDT Delroy Fofana MD POINT OF CARE TEST ORDERABLES Performing Organization Address [facility] de Phone Number [facility] [place] [address] * CT Chest wo Contrast (Generic) (06/03/2024 4:33 PM EDT) WORKSTATION ID [id number] RAD Anatomical Region Laterality Modality Chest Computed Tomogra phy Impressions 06/03/2024 4:47 PM EDT Cardiomegaly. Biventricular ICD leads in place. Thank you for letting us participate in the care of this patient. ??If you are a health care provider and have any questions regarding this report, please contact the number below. ??For patients who have questions please contact the health lawn care professional that requested your imaging first. ? Electronically signed by: Stuart Aponte MD, [facility] ??([phone]), at 06/03/2024 4:47 PM Narrative 06/03/2024 4:47 [...] patients who have questions please contactthe health lawn care professional that requested your imaging first. Bobby Loja MD IMG CT ORDERABLES * Carotid Duplex, Bilateral (06/03/2024 2:19 PM EDT) VB Text Report Department: Vascular Surgery Lab Patient: [id number] (GEORGE MEHTA) CPT: 64654 Referring Physician: BOBBY LOJA ?? Phone: Indications: [...] 0.15 IU/mL 06/03/2024 1:13 PM EDT [facility] Comment: Heparin (anti-Xa) levels should [...] Shahnaz Scanlon MD HEMATOLOGY ORDERABLE S [facility] [place] [address] * POC, GLUCOSE (06/03/2024 11:14 AM EDT) Glucometer, POC 166 65 - 199 mg/dL 06/03/2024 11:14 AM EDT [facility] Comment:Supplemental ranges: <140 mg/dL before meals <180 mg/dL all other times of the day. Blood CAPILLARY BLOOD / Unknown 06/03/2024 11:14 AM EDT 06/03/2024 11:14 AM EDT Delroy Fofana MD POINT OF CARE TEST ORDERABLES [facility] [place] [address] * (ABNORMAL) Troponin-T, High Sensitivity 3 Hour (06/03/2024 10:06 AM EDT) Troponin-T, High Sensitivity 266(H) <=22 ng/L 06/03/2024 10:50 AM EDT [facility] Comment: This patient's troponin T concentration was determined using the [employer] 5th Generation troponin T assay. According to [...] troponin value can be found in the [facility] Test Catalog Troponin - https://[facility]-.testcatalog.org/catalogs/565/files/01536 Reference: Fourth Jefferson Definition of Myocardial Infarction. Journal of the [place] College [employer] 2018;72:0305-7689 Troponin-T, HS 3 hr delta 06/03/2024 10:50 AM EDT [facility] Comment:Delta troponin value not calculated, sample collected outside of delta calculation time limit. Blood VENOUS BLOOD SPECIMEN / Unknown IP Care Team Draw / Unknown 06/03/2024 10:06 AM EDT 06/03/2024 10:15 AM EDT Delroy Fofana MD CHEMISTRY ORDERABLE S [facility] [place] [address] * ECHO COMPLETE W CONTRAST (06/03/2024 8:46 AM EDT) Anatomical Region Laterality Modality Cardiac Other 06/03/2024 6:52 AM EDT Narrative 06/03/2024 10:32 AM EDT [address] [place] [address] ? Echocardiogram Report Name: GEORGE MEHTA ?Study Date: 06/03/2024 06:52 AM : 1955 ? Height: 168 cm ? Account: [id number] Age: 69 yrs ? Weight: 102 kg Gender: Male ?BSA: 2.1 m2 Ordering Physician: SHAHNAZ SCANLON Referring Physician: REBEL MUÑIZ Performed By: Sara Kebede RDCS Reason For Study: STEMI Exam Location: [facility]. Interpretation Summary -Left ventricular systolic function is [...] fellow performed study of today's date). Procedure Complete-[id number]. Image enhancement Optison was used for left [...] Note Jonnie Jordan MD - 06/03/2024 [address] [place] [address] Echocardiogram Report Name: GEORGE MEHTA Study Date: 406:52 AM : 1955 Height: 168 cm Account: [id number] Age: 69 yrs Weight: 102 kg Gender: Male BSA: 2.1 m2 Ordering Physician: SHAHNAZ SCANLON Referring Physician: REBEL MUÑIZ Performed By: Sara Kebede RDCS Reason For Study: STEMI Exam Location: [facility]. Interpretation Summary -Left ventricular systolic function is [...] a fellow performed study 's date). Procedure Complete-[id number]. Image enhancement Optison was used for left [...] Sensitivity 1 Hour (06/03/2024 8:27 AM EDT) [facility] Troponin-T, High Sensitivity 289(H) <=22 ng/L 06/03/2024 9:26 AM EDT [facility] Comment: This patient's troponin T [...] troponin value can be found in the [facility] Test Catalog Troponin - https://[facility].testcatalog.org/catalogs/565/files/26414 Reference: Fourth Jefferson Definition of Myocardial Infarction. Journal of the [place] College of Cardiology 2018;72:3089-8749 Troponin-T, HS 1 hr delta 5 ng/L 06/03/2024 9:26 AM EDT [facility] Comment:The 1 hour Troponin T delta value is the absolute difference between the Troponin T concentrations of the initial and subsequent sample collected between 45 - 120 minutes following the initial collection. Blood VENOUS BLOOD SPECIMEN / Unknown IP Care Team Draw / Unknown 06/03/2024 8:27 AM EDT 06/03/2024 8:37 AM EDT Delroy Fofana MD CHEMISTRY ORDERABLE S Performing Organization Address City/[facility]/ZIP Co de Phone Number [facility] [place] [address] * POC, GLUCOSE (06/03/2024 7:54 AM EDT) [facility] Signature Glucometer, POC 195 65 - 199 mg/dL 06/03/2024 7:55 AM EDT [facility] Comment:Supplemental ranges: <140 mg/dL before meals <180 mg/dL all other times of the day. Blood CAPILLARY BLOOD / Unknown 06/03/2024 7:54 AM EDT 06/03/2024 7:55 AM EDT Nuha Rojo MD POINT OF CARE TEST ORDERABLES [facility] [place] [address] * (ABNORMAL) Troponin-T, High Sensitivity (06/03/2024 7:39 AM EDT) Troponin-T, High Sensitivity Initial 284(H) <=22 ng/L 06/03/2024 8:29 AM EDT [facility] Comment: This patient's troponin T [...] troponin value can be found in the [facility] Test Catalog Troponin - https://[facility]-.testcatalog.org/catalogs/565/files/46590 Reference: Fourth Jefferson Definition of Myocardial Infarction. Journal of the [place] College of Cardiology 2018;72:6166-1062 Blood VENOUS BLOOD SPECIMEN / Unknown IP Care Team Draw / Unknown 06/03/2024 7:39 AM EDT 06/03/2024 7:48 AM EDT Delroy Fofana MD CHEMISTRY ORDERABLE S [facility] [place] [address] * (ABNORMAL) Troponin-T, High Sensitivity 3 Hour (06/03/2024 5:11 AM EDT) Troponin-T, High Sensitivity 254(H) <=22 ng/L 06/03/2024 5:49 AM EDT [facility] Comment: This patient's troponin T [...] troponin value can be found in the [facility] Test Catalog Troponin - https://[email or web address]-.testcatalog.org/catalogs/565/files/64359 Reference: Fourth Jefferson Definition of Myocardial Infarction. Journal of the [place] College of [employer]iology 2018;72:4195-6475 Troponin-T, HS 3 hr delta 46 ng/L 06/03/2024 5:49 AM EDT [facility] Comment:The 3 hour Troponin T delta value is the absolute difference between the Troponin T concentrations of the initial and subsequent sample collected between 2 h: 45 min and 6 h following the initial collection Blood VENOUS BLOOD SPECIMEN / Unknown IP Care Team Draw / Unknown 06/03/2024 5:11 AM EDT 06/03/2024 5:20 AM EDT Shahnaz Scanlon MD CHEMISTRY ORDERABLES [facility] [place] [address] * (ABNORMAL) Troponin-T, High Sensitivity 1 Hour (06/03/2024 3:07 AM EDT) [employer] Troponin-T, High Sensitivity 218(H) <=22 ng/L 06/03/2024 3:39 AM EDT [facility] Comment: This patient's troponin T [...] troponin value can be found in the [facility] Test Catalog Troponin - https://one-.testcatalog.org/catalogs/565/files/07376 Reference: Fourth [employer] Definition of Myocardial Infarction. Journal of the [place] [employer] 2018;72:9333-4411 Troponin-T, HS 1 hr delta 10 ng/L 06/03/2024 3:39 AM EDT [facility] Comment:The 1 hour Troponin T delta value is the absolute difference between the Troponin T concentrations of the initial and subsequent sample collected between 45 - 120 minutes following the initial collection. Blood VENOUS BLOOD SPECIMEN / Unknown IP Care Team Draw / Unknown 06/03/2024 3:07 AM EDT 06/03/2024 3:12 AM EDT Shahnaz Scanlon MD CHEMISTRY ORDERABLES [facility] [place] [address] * XR Chest One View (06/03/2024 2:41 AM EDT) [facility] [employer] WORKSTATION ID [id number] RAD Anatomical Region Laterality Modality Chest N/A Digital Radiogra phy Impressions 06/03/2024 3:06 AM EDT No radiographically evident acute cardiopulmonary process. Thank you for letting us participate in the care of this patient. ??If you are a health care provider and have any questions regarding this report, please contact the number below. ??For patients who have questions please contact the health lawn care professional that requested your imaging first. ? Narrative [...] patients who have questions please contactthe health lawn care professional that requested your imaging first. Shahnaz Scanlon MD IMG DX ORDERABLES * Heparin (unfractionated) Level (06/03/2024 2:13 AM EDT) Pathologist [facility] UF Heparin 0.56 IU/mL 06/03/2024 4:13 AM EDT [facility] Comment: Heparin (anti-Xa) levels should [...] Shahnaz Scanlon MD HEMATOLOGY ORDERABLE S [facility] [place] [address] * (ABNORMAL) Troponin-T, High Sensitivity (06/03/2024 2:13 AM EDT) Pathologist [facility] Troponin-T, High Sensitivity Initial 208(H) <=22 ng/L 06/03/2024 3:02 AM EDT [facility] Comment: This patient's troponin T [...] troponin value can be found in the [facility] Test Catalog Troponin - [email or web address].org/catalogs/565/files/27867 Reference: Fourth Jefferson Definition of Myocardial Infarction. Journal of the [place] College of Cardiology 2018;72:5320-4031 Blood VENOUS BLOOD SPECIMEN / Unknown IP Care Team Draw / Unknown 06/03/2024 2:13 AM EDT 06/03/2024 2:32 AM EDT Shahnaz Scanlon MD CHEMISTRY ORDERABLES [facility] [place] [address] * Magnesium (06/03/2024 2:13 AM EDT) Magnesium 0.86 0.69 - 1.07 mMol/L 06/03/2024 3:02 AM EDT [facility] Blood VENOUS BLOOD SPECIMEN / Unknown IP Care Team Draw / Unknown 06/03/2024 2:13 AM EDT 06/03/2024 2:32 AM EDT Shahnaz Scanlon MD CHEMISTRY ORDERABLES [facility] [place] [address] * Basic Metabolic Panel (06/03/2024 2:13 AM EDT) Glucose 126 65 - 199 mg/dL 06/03/2024 3:02 AM EDT [facility] Comment:Glucose Concentratio n >=200 mg/dL plus symptoms is consistent with Diabetes Mellitus. Blood Urea Nitrogen 20 10 - 20 mg/dL 06/03/2024 3:[address] [facility] Creatinine 1.13 0.80 - 1.50 mg/dL 06/03/2024 3:[address] [facility] Sodium 139 135 - 145 mMol/L 06/03/2024 3:[address] [facility] Potassium 4.2 3.5 - 5.0 mMol/L 06/03/2024 3:[address] [facility] Chloride 101 98 - 107 mMol/L 06/03/2024 3:[address] [facility] Carbon Dioxide 26 22 - 31 mMol/L 06/03/2024 3:[address] [facility] Anion Gap 12 5 - 15 mMol/L 06/03/2024 3:[address] [facility] Calcium 9.8 8.5 - 10.5 mg/dL 06/03/2024 3:[address] [facility] Est Glomerular Filtration Rate - Male 71 mL/min/1. 73 m?? 06/03/2024 3:[address] [facility] Comment: This patient's estimated GFR [...] EDT Shahnaz Scanlon MD CHEMISTRY ORDERABLES [facility] [place] [address] * (ABNORMAL) CBC (with Diff) (06/03/2024 2:13 AM EDT) White Blood Cell 11.16(H) 4.00 - 9.50 x10(3)/mc L 06/03/2024 2:37 AM EDT [facility] Red Blood Cell 5.09 4.58 - 5.54 x10(6)/mc L 06/03/2024 2:37 AM EDT [facility] Hemoglobin 15.0 13.7 - 16.5 g/dL [facility] Hematocrit 47.4 40.5 - 48.5 % 06/03/2024 2:37 AM EDT [facility] Mean Cell Volume 93.1 82.9 - 93.1 fL 06/03/2024 2:37 AM EDT [facility] Mean Cell Hemoglobin 29.5 27.5 - 32.1 pg 06/03/2024 2:37 AM EDT [facility] Mean Cell Hemoglobin Concentration 31.6(L) 32.0 - 35.7 g/dL 06/03[facility]24 [facility] Platelet 217 145 - 357 x10(3)/mc L 06/03[facility]2024 [facility] Mean Platelet Volume 9.5 7.6 - 12.9 fL 06/03/2024 2:[address] [facility] RDW Standard Deviation 49.0(H) 36.0 - 45.0 fL 06/03/2024 2:[address] [facility] RDW coefficient of variation 14.1(H) 11.4 - 13.8 % 06/03/2024 2:[address] [facility] NRBC% auto 0.0 % 06/03/2024 2:[address] [facility] NRBC Absolute <0.01 <0.01 x10(3)/mc L 06/03/2024 2:[address] [facility] Neutrophil % 58.4 % 06/03/2024 2:[address] [facility] Neutrophil Absolute (ANC) - Automated 6.51(H) 1.70 - 6.10 x10(3)/mc L 06/03/2024 2:[address] [facility] Lymph % 29.9 % 06/03/2024 2:[address] [facility] Lymph Absolute 3.34(H) 0.90 - 3.20 x10(3)/mc L 06/03/2024 2:[address] [facility] Monocyte % 8.1 % 06/03/2024 2:[address] [facility] Monocyte Absolute 0.90 0.30 - 0.90 x10(3)/mc L 06/03/2024 2:[address] [facility] Eos % 2.4 % 06/03/2024 2:[address] [facility] Eos Absolute 0.27 0.00 - 0.40 x10(3)/mc L 06/03/2024 2:[address] [facility] Basophil % 0.8 % 06/03/2024 2:[address] [facility] Baso Absolute 0.09 0.00 - 0.10 x10(3)/mc L 06/03/2024 2:[address] [facility] Immature Gran % 0.4 % 2:37 AM EDT [facility] Immature Gran Absolute 0.05(H) 0.00 - 0.04 x10(3)/mc L 06/03/2024 2:[address] [facility] Blood VENOUS BLOOD SPECIMEN / Unknown IP Care Team Draw / Unknown 06/03/2024 2:13 AM EDT 06/03/2024 2:31 AM EDT Shahnaz Scanlon MD HEMATOLOGY ORDERABLE S [facility] [place] [address] * Lipid Panel (Reflex Direct LDL) (06/03/2024 2:13 AM EDT) Cholesterol, Total 76 mg/dL 06/03/2024 3:[address] [facility] Comment: Desirable: < 200 mg/dL Borderline High: 200 - 239 mg/dL High: > or = 240 mg/dL Triglyceride 75 mg/dL 06/03/2024 3:[address] [facility] Comment: Normal: <150 mg/dL Borderline High: 150-199 mg/dL High: 200-499 mg/dL Very High: > or =500 mg/dL HDL Cholesterol 39 mg/dL 3:[address] [facility] Comment:Males: High Risk: <4 0 mg/dL LDL Cholesterol 21 mg/dL 3:[address] [facility] Comment: Desirable: <100 mg/dL Above Desirable: 100-129 mg/dL Borderline High: 130-159 mg/dL High: 160-189 mg/dL Very High: > or =190 mg/dL Note: LDL calculation updated to the NIH LDL formula as of 03/07/2024 Non-HDL Cholesterol 37 mg/dL 06/03/2024 3:[address] [facility] Comment: Desirable: <130 mg/dL Above Desirable: 130-159 mg/dL Borderline High: 160-189 mg/dL High: 190-219 mg/dL Very High: > or = 220 mg/dL Blood VENOUS BLOOD SPECIMEN / Unknown IP Care Team Draw / Unknown 06/03/2024 2:13 AM EDT 06/03/2024 2:32 AM EDT [facility] - 06/03/2024 3:02 AM EDT [...] Scanlon MD CHEMISTRY ORDERABLES Performing Organization Address [facility] de Phone Number [facility] [place] [address] * (ABNORMAL) APTT (06/03/2024 2:13 AM EDT) Partial Thromboplastin Time 105(HHH) 25 - 37 sec 06/03/2024 4:13 AM EDT [facility] Comment: The PTT is NOT [...] MD HEMATOLOGY ORDERABLE S Performing Organization Address [facility] de Phone Number [facility] [place] [address] * Prothrombin Time (06/03/2024 2:13 AM EDT) Prothrombin Time 11.5 9.4 - 12.5 sec 06/03/2024 4:13 AM EDT [facility] International Normalization Ratio 1.0 <=4.9 06/03/2024 4:13 AM EDT [facility] Comment: An INR < 2.0 [...] MD HEMATOLOGY ORDERABLE S Performing Organization Address City/[facility]/ZIP Co de Phone Number [facility] [place] [address] * Hepatic Function Panel (06/03/2024 2:13 AM EDT) Albumin 3.8 3.2 - 5.2 g/dL 06/03/2024 3:02 AM EDT [facility] Aspartate Aminotransferase 20 <=39 unit/L 06/03/2024 3:02 AM EDT [facility] Alanine Aminotransferase 12 0 - 55 unit/L 06/03/2024 3:02 AM EDT [facility] Alkaline Phosphatase 76 40 - 130 unit/L 06/03/2024 3:02 AM EDT [facility] Bilirubin, Total 0.4 <=1.3 mg/dL 06/03/2024 3:02 AM EDT [facility] Bilirubin, Direct <0.2 0.0 - 0.3 mg/dL 06/03/2024 3:02 AM EDT [facility] Protein, Total 7.0 6.1 - 8.0 g/dL 06/03/2024 3:02 AM EDT [facility] Blood VENOUS BLOOD SPECIMEN / Unknown IP Care Team Draw / Unknown 06/03/2024 2:13 AM EDT 06/03/2024 2:32 AM EDT Shahnaz Scanlon MD CHEMISTRY ORDERABLES Performing Organization Address City/[facility]/ZIP Co de Phone Number [facility] [place] [address] * (ABNORMAL) pro-Brain Natriuretic Peptide (06/03/2024 2:13 AM EDT) NT-proBNP 1,628(H) <=124 pg/mL 06/03/2024 4:15 AM EDT [facility] Blood VENOUS BLOOD SPECIMEN / Unknown IP Care Team Draw / Unknown 06/03/2024 2:13 AM EDT 06/03/2024 2:32 AM EDT Shahnaz Scanlon MD CHEMISTRY ORDERABLES Performing Organization Address City/[facility]/ZIP Co de Phone Number [facility] [place] [address] * Phosphorus (06/03/2024 2:13 AM EDT) Phosphorus 4.4 2.5 - 4.5 mg/dL 06/03/2024 3:02 AM EDT [facility] Blood VENOUS BLOOD SPECIMEN / Unknown IP Care Team Draw / Unknown 06/03/2024 2:13 AM EDT 06/03/2024 2:32 AM EDT Shahnaz Scanlon MD CHEMISTRY ORDERABLES Performing Organization Address City/[facility]/ZIP Co de Phone Number [facility] [place] [address] * EKG 12 Lead (06/03/2024 1:45 AM EDT) Ventricular rate 63 BPM MUSE SYSTEM Atrial Rate 63 BPM MUSE SYSTEM P-R Interval 168 ms MUSE SYSTEM QRS Duration 96 ms MUSE SYSTEM Q-T Interval 400 ms MUSE SYSTEM QTC Calculated (Bezet) 409 ms MUSE SYSTEM Calculated P Grimes 65 degrees MUSE SYSTEM Calculated R Grimes 70 degrees MUSE SYSTEM Calculated T Grimes -86 degrees MUSE SYSTEM INTERPRETATION Atrial-sensed ventricular-paced rhythm Abnormal ECG No previous ECGs available I personally reviewed the tracing and edited the fellows interpretation Confirmed by fellow Sunni Agudelo ([id number]) on 06/04/2024 3:55:40 PM Confirmed by MD Cantrell Jonathan C. ([id number]) on 06/05/2024 11:46:48 AM MUSE SYSTEM 06/03/2024 1:45 AM EDT 06/05/2024 11:46 AM EDT Shahnaz Scanlon MD ECG ORDERABLES MUSE SYSTEM * CARDIAC CATHETERIZATION (06/03/2024 12:42 AM EDT) Anatomical Region Laterality Modality Other Narrative 06/04/2024 2:22 PM EDT ?[facility] ? Cardiac Catheterization/Intervention Report ? Patient Name: Tyson, George L. ? Procedure Date: 06/02/2024 ? A #: [id number] ? Primary Physician: Hermelinda, Nuha I ? Case #: [id number] ? File Name: [id number] ? Catheterization Order Number: [id number] ? [facility] ? Final Report [place], [place] ? Patient Name: ? George L. Tyson ? ID#: ?[id number] ? : ?1955 ? Procedure Date: ? June 02, 2024 ? Case #: ? [id number] ? Room: ? 5 ? Case Physician: ? Nuha Shen M.D. ? Start: ?23:23 ? Admission: ??06/02/2024 ? Referring Physician: ??Rebel R Muñiz, P.A. ?Discharge: ??06/21/2024 ? Procedures: ?* Coronary Angiography [...] was designated as ASA Class IV. The HA clinical frailty ?scale is 5: Mildly Frail. ? Diagnostic Tests: ?Electrocardiography: ? EKG was assessed by ECG. EKG was Abnormal. EKG showed ST Deviation ? >= 0.5 mm. ?Medications Prior to Procedure: ? Sacubitril and Valsartan, Aspirin, Beta Erik, Statin and ? Thrombolytic (any). ? Indications for Diagnostic Cath: ?The priority of the diagnostic procedure was Emergent. The indication for ?the lab assistant visit is ACS less than or equal [...] ?3.5 guiding catheter and a 3.5 Fr [facility] [place] 20 Mhz using Manual ?pullback. ??Imaging was [...] 3.5 guiding catheter and a 3.5 Fr [facility] [place] 20 Mhz using ?Manual pullback. ??Imaging was [...] Procedure Note Nuha Shen MD - 07/20/2024 [facility] Cardiac Catheterization/Intervention Report Patient Name: George Mehta Procedure Date: 06/02/2024 A #: [id number] Primary Physician: Nuha Shen I Case #: [id number] File Name: [id number] Catheterization Order Number: [id number] [facility] FinalReport [place], [place] Patient Name: Geroge Mehta ID#:[id number] :1955 Procedure Date: June 02, 2024 Case [...] designated as ASA Class IV. The CSHA clinicalfrailty scale is 5: Mildly Frail. Diagnostic Tests: Electrocardiography: EKG was assessed by ECG. EKG was Abnormal. EKG showed STDeviation >= 0.5 mm. Medications Prior to Procedure: Sacubitril and Valsartan, Aspirin, Beta Erik, Statin and Thrombolytic (any). Indications for Diagnostic Cath: The priority of the diagnostic procedure was Emergent. Theindication for the lab assistant visit is ACS less than or equal [...] units of heparin were administered. A total [id number] of Omnipaque were opened, 84cc of Omnipaque were administered [id number] of Omnipaque were wasted. Radiation: Fluoro time [...] 3.5 guiding catheter and a 3.5 Fr [facility] [place] 20 Mhz usingManual pullback. Imaging was successful. [...] 3.5 guiding catheter and a 3.5 Fr [facility] [place] 20 Mhzusing Manual pullback. Imaging was successful. Indication: IVUS performed for pre intervention planning. Findings Pre-Intervention: scattered plaque, calcification and [id number] degrees calcification. Findings Post-Intervention: Stent not imaged [...] * POC, GLUCOSE (06/02/2024 11:31 PM EDT) [facility] Glucometer, POC 156 65 - 199 mg/dL 06/02/2024 11:31 PM EDT [facility] Comment:Supplemental ranges: <140 mg/dL before meals <180 mg/dL all other times of the day. Blood CAPILLARY BLOOD / Unknown 06/02/2024 11:31 PM EDT 06/02/2024 11:31 PM EDT Nuha Rojo MD POINT OF CARE TEST ORDERABLES [facility] [place] [address] documented in this encounter Visit Diagnoses Not [...] 2100, Last dose on Fri06/23/24 at 0900, Ripening Room Operator recommended duration is 3 days., Routine [...] 8:02 PM EST 2 tablets sodium chloride (Woden) 0.65 % nasal spray 1 spray 1 [...] ribbon 0828 (Given - Provider: Mary Lou F Thomassen, RN)1234 (Given - Provider: Mary Lou Lane [...] on Fri06/20/24 at 0900, Until Discontinued, Routine 08 (Given [...] RN) 0900 (Not Given - Provider: Shazia Mcodnald RN - Reason: Patient/family refused) oxymetazoline (Afrin) 0.05 % nasal spray 2 spray 2 spray, Each Nare, 2 TIMES DAILY, 6 doses, First dose on Fri06/20/24 at 2100, Last dose on Fri06/23/24 at 0900, Ripening Room Operator recommended duration is 3 days., Routine [...] Lane RN) 812 (Given - Provider: Michelle Orozco RN) 08 (Given - Provider: Shazia Mcdonald RN) potassium [...] Comment: 117/75) 812 (Given - Provider: Michelle Orozco RN)2041 (Given - Provider: Christina Myers RN - Comment: /) 0837 (Given - Provider: Shazia Mcdonald RN) senna-docusate (Pericolace) 8.6-50 mg per tablet 2 tablet 2 tablet, Oral, 2 TIMES DAILY, First dose (after last modification) on Fri06/15/24 at 2100, Until Discontinued, Post-op day 1, Routine 0823 (Given - Provider: Mary Lou Laen RN)2100 (Not Given - Provider: Christina Myers [...] 10 mg, Rectal, DAILY PRN, Starting on Fri24 at 0000, Until Fri06/21/24 at 1534, Constipation, [...] oral route first line., Routine sodium chloride (Woden) 0.65 % nasal spray 1 spray 1 [...] 6 hours upon arrival to Unit. Give OK if unable to take PO, Routine Group [...] Routine documented in this encounter Care Teams Hand Blocker Relationship Specialty Start Date End Date Mauro Berumen MD [address] [place] [address] PCP - General Family Medicine 06/02/24 documented as of this encounter
[2024-08-13 17:48] LABS: Troponin I 311 ng/L (<or=76)
[2024-08-13] MEDS: Insulin Aspart 300 UNITS/3 ML PEN SC (18:01)
--- NOTE | 2024-08-13 18:29 | W.PC.ACHO ---
Registration Status: Primary Language: Preferred Language: ED Information & Data Chief Complaint Dizzy/Sync 08/13/24 13:29 Triage Note came from cardiac rehab s/p 08/13/24 11:13 CABG 06/13 c/o of lightheadedness and vision changes. hxo low BGL denies chest pain, chest pressure SOB Medical / Surgical History (Last Reviewed 08/13/24 @ 13:21 by Marcelo Manning MD) ST elevation myocardial infarction (STEMI) Hx of cardiac pacemaker Chronic left-sided heart failure Diabetic neuropathy Type 2 diabetes mellitus (Last Reviewed 08/13/24 @ 13:21 by Marcelo Manning MD) Hx of CABG Most Recent Vital Signs Temperature 36.4 C L 08/13/24 17:40 Temperature Source Temporal Artery Scan 08/13/24 17:14 Pulse 82 08/13/24 18:06 Pulse 79 08/13/24 16:54 Respiratory Rate 16 08/13/24 17:40 Respiratory Effort Normal, Non-Labored 08/13/24 17:40 Respiratory Depth Normal 08/13/24 17:40 Respiratory Pattern Normal 08/13/24 17:40 Blood Pressure 123/73 08/13/24 17:40 Blood Pressure Mean 81 08/13/24 16:54 Pulse Oximetry 96 08/13/24 17:40 Oxygen Delivery Method Room Air 08/13/24 17:40 Oxygen Flow Rate 0 08/13/24 17:40 Pain Level 0 08/13/24 17:40 Allergies No Known Allergies Allergy (Verified 08/13/24 11:17) Precautions Isolation Standard precaution 08/13/24 11:18 Active Medications Generic Name Dose Route Start Last Admin Trade Name Nayely PRN Reason Stop Dose Admin Heparin Sodium/Sodium Chloride 25,000 unit in 250 mls @ 10 mls/hr 08/13/24 15:00 08/13/24 15:59 IVINF 1,000 units/hr INFUSION JANKI 10 mls/hr Administration Protocol 1,000 UNITS/HR Insulin Aspart 0 units 08/13/24 17:09 08/13/24 18:01 Insulin Aspart 300 Units/3 Ml Pen SC 2 units 0800,1200,1700 JANKI Administration Protocol IV IV Catheter Type [Right Saline Lock Antecubital Distal Port] IV Catheter Type [Right Peripheral IV Antecubital] IV Catheter Gauge [Right 18 Antecubital Distal Port] IV Catheter Gauge [Right 18 Antecubital] Diet Orders Category Date Time Status Diabetes Consistent CHO/Heart Healthy [DIET] Nutrition 08/13/24 Dinner Active Diagnostics 08/13/24 08/13/24 08/13/24 Range/Units 22:00 19:03 17:23 WBC (4.4-10.8) 10^3/uL RBC (4.36-5.78) 10^6/uL Hgb (13.5-17.5) g/dL Hct (40.0-50.0) % MCV (80-95) fL MCH (27.0-33.0) pg MCHC (32.0-36.0) % RDW (11.8-14.1) % Plt Count (130-400) 10^3/uL MPV (8.0-11.0) fL Immature Gran % % Neutrophils % % Lymphocytes % % Monocytes % % Eosinophils % % Basophils % % Nucleated RBC % (0.0-0.3) % Absolute Neutrophils (1.2-6.7) 10^3/uL Absolute Lymphocytes (1.2-3.4) 10^3/uL Absolute Monocytes (0.1-0.8) 10^3/uL Absolute Eosinophils (0.0-0.7) 10^3/uL Absolute Basophils (0.0-0.2) 10^3/uL APTT Pending (20.6-30.2) sec Sodium (136-145) mmol/L Potassium (3.5-5.1) mmol/L Chloride (98-107) mmol/L Carbon Dioxide (21.0-32.0) mmol/L Anion Gap (3-11) mmol/L BUN (7-18) mg/dL Creatinine (0.70-1.30) mg/dL Est GFR (CKD-EPI 2020) (mL/min/1.73m2) Glucose (74-106) mg/dL Calcium (8.5-10.1) mg/dL Magnesium (1.8-2.4) mg/dL Total Bilirubin (0.2-1.0) mg/dL AST (15-37) U/L ALT (16-63) U/L Alkaline Phosphatase (46-116) U/L Troponin I Pending 311 H* (<or=76) ng/L Total Protein (6.4-8.2) g/dL Albumin (3.4-5.0) g/dL 08/13/24 08/13/24 08/13/24 Range/Units 15:03 13:05 11:27 WBC 9.25 (4.4-10.8) 10^3/uL RBC 4.65 (4.36-5.78) 10^6/uL Hgb 13.4 L (13.5-17.5) g/dL Hct 43.1 (40.0-50.0) % MCV 93 (80-95) fL MCH 28.8 (27.0-33.0) pg MCHC 31.1 L (32.0-36.0) % RDW 13.6 (11.8-14.1) % Plt Count 233 (130-400) 10^3/uL MPV 9.4 (8.0-11.0) fL Immature Gran % 0.4 % Neutrophils % 68.8 % Lymphocytes % 19.2 % Monocytes % 8.1 % Eosinophils % 2.5 % Basophils % 1.0 % Nucleated RBC % 0.0 (0.0-0.3) % Absolute Neutrophils 6.36 (1.2-6.7) 10^3/uL Absolute Lymphocytes 1.78 (1.2-3.4) 10^3/uL Absolute Monocytes 0.75 (0.1-0.8) 10^3/uL Absolute Eosinophils 0.23 (0.0-0.7) 10^3/uL Absolute Basophils 0.09 (0.0-0.2) 10^3/uL APTT 27.6 (20.6-30.2) sec Sodium 138 (136-145) mmol/L Potassium 4.5 (3.5-5.1) mmol/L Chloride 101 (98-107) mmol/L Carbon Dioxide 29.5 (21.0-32.0) mmol/L Anion Gap 7.5 (3-11) mmol/L BUN 29 H (7-18) mg/dL Creatinine 1.5 H (0.70-1.30) mg/dL Est GFR (CKD-EPI 2020) 50.71 (mL/min/1.73m2) Glucose 186 H (74-106) mg/dL Calcium 9.7 (8.5-10.1) mg/dL Magnesium 1.9 (1.8-2.4) mg/dL Total Bilirubin 0.65 (0.2-1.0) mg/dL AST 14 L (15-37) U/L ALT 10 L (16-63) U/L Alkaline Phosphatase 89 (46-116) U/L Troponin I 308 H* 305 H* 309 H* (<or=76) ng/L Total Protein 7.6 (6.4-8.2) g/dL Albumin 3.7 (3.4-5.0) g/dL [id number] Documentation Fingerstick Glucose Start: 08/13/24 11:23 Freq: Status: Complete Protocol: Activity Type Activity Date Activity User E-sign Co-sign Detail Recorded Client Recorded Date Recorded By Document 08/13/24 14:41 BKG DAEMON(9) NVT-BG05 08/13/24 14:42 BKG DAEMON(10) Fingerstick Glucose Start: 08/13/24 17:09 Freq: AC & HS Status: Active Protocol: Activity Type Activity Date Activity User E-sign Co-sign Detail Recorded Client Recorded Date Recorded By Document 08/13/24 17:38 BKG DAEMON(10) NVT-BG05 08/13/24 17:39 BKG DAEMON(10) Intake and Output - 24 Hour Total 08/13/24 11:02 thru 08/13/24 17:40 Intake Total 250 Balance 250 Weight 94.5 kg Intake: IV 250 Other: Urine Appearance Clear Falls Risk Assessment History of Falls No History 08/13/24 17:40 Contributing Factors Unstable 08/13/24 17:40 Ambulatory Aids Independent 08/13/24 17:40 Tubes/Lines W/no contributing factors 08/13/24 17:40 Gait Evaluation No gait disturbance 08/13/24 17:40 Cognition No cognitive impairment 08/13/24 17:40 Fall Total Score 13 08/13/24 17:40 Level of Risk Standard/Low Risk 08/13/24 17:40 Problems (Last Reviewed 08/13/24 @ 13:21 by Marcelo Manning MD) Dehydration (Acute) Contraindication to deep vein thrombosis (DVT) prophylaxis (Acute) Elevated troponin I measurement (Acute) ACS (acute coronary syndrome) (Acute) Hypoglycemia (Acute) Essential hypertension (Acute) v v v v v v v v v Sending and/or Receiving Nurses: Please use comment section below to note any information pertinent to the patient hand-off not included above. Information / Comments: Report received from: Jackelyn Azevedo RN 08/13/2024 @ 1655 and pt arrived @ 1710. Heparin gtt infusing at 1000 units/kg/hr (10 ml/hr). Follow up bloodwork: PTT 2200 and troponin
[2024-08-13 19:41] LABS: Troponin I 338 ng/L (<or=76)
[2024-08-13] MEDS: Carvedilol 12.5 MG TAB PO (21:09)
[2024-08-13] MEDS: Sacubitril/Valsartan 49 mg/51 mg TAB 1 EACH PO (21:09)
[2024-08-13] MEDS: Normal Saline Flush 10 ML SYR IVP (21:10)
[2024-08-13 22:54] LABS: PTT Activated 40.3 sec (20.6-30.2)
[2024-08-14] VITALS (57 sets, daily range): BP systolic 92–119; BP diastolic 59–76; PULSE 79–84; RESP 16–18; TEMP 36.3–37.4; O2SAT 93–98
[2024-08-14] MEDS: DEXTROSE 5%-LACTATED RINGERS 1,000 ML 50 ML IV (01:07)
[2024-08-14 06:19] LABS: Abs Immature Grans 0.02 10^3/uL (0.0-0.06); Absolute Basophil Count 0.08 10^3/uL (0.0-0.2); Absolute Eosinophil Count 0.37 10^3/uL (0.0-0.7); Absolute Lymphocyte Count 2.52 10^3/uL (1.2-3.4); Absolute Neutrophil Count 4.54 10^3/uL (1.2-6.7); Eosinophils % 4.4 %; HCT 42.5 % (40.0-50.0); HGB 13.4 g/dL (13.5-17.5); Immature Grans % 0.2 %; Lymphocytes % 30.3 %; MCH 28.9 pg (27.0-33.0); MCHC 31.5 % (32.0-36.0); MCV 92 fL (80-95); MPV 9.2 fL (8.0-11.0); Monocytes % 9.6 %; Neutrophils % 54.5 %; Platelet Count 204 10^3/uL (130-400); RBC 4.64 10^6/uL (4.36-5.78); RDW 13.4 % (11.8-14.1); RDW-SD 45.3 fL; WBC 8.33 10^3/uL (4.4-10.8)
[2024-08-14 06:26] LABS: PTT Activated 60.4 sec (20.6-30.2)
[2024-08-14 06:36] LABS: Troponin I 314 ng/L (<or=76)
[2024-08-14] MEDS: Heparin in 0.45% NaCl 25,000 UNIT/250 ML BAG 12 UNIT IVINF (07:51)
[2024-08-14] MEDS: Clopidogrel 75 MG TAB PO (08:43)
[2024-08-14] MEDS: Empaglifozin 25 MG TAB PO (08:43)
[2024-08-14] MEDS: Atorvastatin 40 MG TAB 80 MG PO (08:43)
[2024-08-14] MEDS: Cholecalciferol (Vitamin D3) 1,000 UNIT TAB 2000 UNITS PO (08:43)
[2024-08-14] MEDS: Sacubitril/Valsartan 49 mg/51 mg TAB 1 EACH PO (08:43)
[2024-08-14] MEDS: Escitalopram 20 MG TAB PO (08:43)
[2024-08-14] MEDS: Carvedilol 12.5 MG TAB PO (08:43)
[2024-08-14] MEDS: Furosemide 20 MG TAB PO (08:43)
[2024-08-14 10:24] LABS: Anion Gap 6.8 mmol/L (3-11); BUN 21 mg/dL (7-18); CO2 28.2 mmol/L (21.0-32.0); CREATININE 1.3 mg/dL (0.70-1.30); Calcium 9.1 mg/dL (8.5-10.1); Chloride 105 mmol/L (98-107); Estimated GFR 60.21 (mL/min/1.73m2); Glucose 126 mg/dL (74-106); Potassium 4.1 mmol/L (3.5-5.1); Sodium 140 mmol/L (136-145)
[2024-08-14] MEDS: Aspirin E.C. 81 MG TABEC PO (11:44)
--- NOTE | 2024-08-14 12:16 | DSE_ITS ---
Date of service: 08/14/24 Time of Service: 12:16 DS: Diagnosis Discharge Diagnosis (1) ACS (acute coronary syndrome): Status: Acute (2) Elevated troponin I measurement: Status: Acute (3) Type 2 diabetes mellitus: (4) Hypoglycemia: Status: Acute (5) Hx of CABG: (6) Essential hypertension: Status: Acute (7) Dehydration: Status: Acute (8) Contraindication to deep vein thrombosis (DVT) prophylaxis: Status: Acute Discharge Plan Disposition Patient Disposition: Transfer-Acute Inpatient Care Specific Acute Inpt Facility: [facility] Condition: Serious Discharge Details Reason For Visit: ACS, elevated troponins, hypotension Admit Date/Time: 08/13/24 16:04 Admit Provider: Ra Peralta Attending Provider: Ra Peralta Primary Care Provider: Mauro Berumen Hospital Course Hospital Course: This 69-year-old male patient with past medical history of pacemaker insertion in 2018 for restrictive cardiomyopathy, CABG normal [facility] with 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 on 08/13/2024 s/p feeling lightheaded, foggy with blurred vision during cardiac rehabilitation session in the facility. ED provider reported systolic blood pressure in the 80's in cardiac rehabilitation with resolution in the ED w/o additional interventions. The patient denied chest pain and had no requirement for oxygen supplementation. Workup in the ED showed an EKG with pacing without T wave or ST segment changes pointing to occlusive cardiac disease; noticeable T wave inversion in multiple leads infero-lateral leads as seen prior. Repeated troponins were flat in the 300s x 3. BUN/creatinine was 29 and 1.5, glucose 186; CBC was unremarkable. In the ED the patient had and episode of hypoglecemia at 68 which responded to oral carbohydrate intake. The ED provider contacted [facility] cardiology services with recommendations for a bolus of crystalloid of 250 cc, heparin drip -ACS protocol and continuation of home medicines; Dr. Ferguson accepted the patient but no bed was available at this time. Bed is to be expected in the afternoon around 13:00-14:00. The patient was admitted to the medical surgical floor by the hospitalist service for evaluation and management of ACS r/o NSTEMI pending bed availability at [facility].The patient confirmed his code status as a full code. During the stay, the was no further report of lightheadedness,blurred vision and fogginess. The patient denied fever, chills, chest pain or chest heaviness, shortness of breath, nausea or vomiting, or genitourinary symptoms. Troponins remained flat at 338 and 314.The patient remained hemodynamically stable. Telemetry remained in an 100 % AV paced Rhythm at 80. The patient was made NPO overnight and received D5LR at 75 cc/hr w/o further episode of hypoglycemia. Metformin and insulin deglutide were held and SSI coverage with lispro ordered; Blood glucose remained 110-152 during the stay.The patient continue to receive his GDMT for HFrEF. The patient will be transferred to [facility] with an heparin infusion for ACS p rotocol under the acceping physician, Dr Ferguson from the cardiology service. Discussed with Dr. Peralta Home Meds and New Rx's Prescriptions: No Action furosemide [Lasix] 20 mg tablet 20 mg PO DAILY insulin degludec [Tresiba FlexTouch U-100] 100 unit/mL (3 mL) insulin pen 50 unit subcut DAILY ketoconazole 2 % cream 1 applic topical DAILY Qty: 120 6RF Rx Instructions: Apply to toenails once daily aspirin 81 mg tablet 81 mg PO DAILY atorvastatin 80 mg tablet 80 mg PO DAILY carvedilol 12.5 mg tablet 12.5 mg PO BID Rx Instructions: must administer with a meal/food cholecalciferol (vitamin D3) 50 mcg (2,000 unit) capsule 50 mcg PO DAILY clopidogrel 75 mg tablet 75 mg PO DAILY Entresto 49-51 mg tablet 1 tab PO BID escitalopram oxalate 20 mg tablet 20 mg PO DAILY Jardiance 25 mg tablet 25 mg PO DAILY metformin 1,000 mg tablet 1,000 mg PO BID insulin aspart U-100 [Novolog FlexPen U-100 Insulin] 100 unit/mL (3 mL) insulin pen 20 unit subcut TID diphenhydramine HCl 25 mg capsule 25 mg PO QHS PRN Discharge Instructions Activity:: Activity as Tolerated Equipment/Supplies:: No Equipment Needed Diet:: heart healthy diabetic DS: Summary Time Spent with Patient providing and/or coordinating discharge services: Greater than 30 minutes Status at Discharge Functional status at discharge: independent ambulation Overall status at discharge: patient is progressing back to baseline Mental Status: mental status grossly normal Speech and Movement: speech and movement normal Mood: congruent mood Affect: normal affect Quality:SDOH Health Related Social Needs: No Data to Display Exam Narrative Exam Narrative: Constitutional The patient is in bed comfortable and cooperative during the interview. Neuro:alert and oriented X4 . No neurological focal deficit Resp: Normal respiratory pattern, speaks in full sentences, unlabored breathing, clear lung bilaterally Cardio: regular rhythm, S1, S2, no murmur, capillary refill<3 sec., bilateral radial and dorsalis pedis pulses are positive, no edema GI: Abdomen is not distended, soft and non tender, bowel sounds are present Integumentary: No skin lesions or rashto exposed skin Extremities: strength 5/5 to bilateral lower and upper extremities Psych: RASS 0, congruent mood and normal affect. Psych Mental Status: mental status grossly normal Speech and Movement: speech and movement normal Mood: congruent mood Affect: normal affect DS: Data Vitals/I&O Vitals and I&O: Vital Signs Temperature 37.4 C 08/14/24 11:45 Temperature Source Temporal Artery Scan 08/14/24 11:45 Pulse 83 08/14/24 11:45 Pulse 79 08/13/24 16:54 Respiratory Rate 17 08/14/24 11:45 Respiratory Effort Normal, Non-Labored 08/13/24 17:40 Respiratory Depth Normal 08/13/24 17:40 Respiratory Pattern Normal 08/13/24 17:40 Blood Pressure 92/59 L 08/14/24 11:45 Blood Pressure Mean 81 08/13/24 16:54 Pulse Oximetry 96 08/14/24 11:45 Oxygen Delivery Method Room Air 08/14/24 11:45 Oxygen Flow Rate 0 08/14/24 11:45 Pain Level 0 08/14/24 11:45 Intake & Output 08/13/24 08/14/24 08/14/24 23:59 11:59 23:59 Intake Total 950.334 / 1025.501 250.534 / 250.534 Balance 950.334 / 1025.501 250.534 / 250.534 Weight 94.5 kg 93.712 kg Intake: IV 400.334 / 475.501 250.534 / 250.534 Oral 550 / 550 Other: Urine Color Yellow Urine Appearance Clear Clear Urine Odor None None Data Completed and Pending Labs on day of discharge: Labs from last 24 hours 08/14/24 08/14/24 08/13/24 12:00 06:00 22:05 WBC 8.33 RBC 4.64 Hgb 13.4 L Hct 42.5 MCV 92 MCH 28.9 MCHC 31.5 L RDW 13.4 Plt Count 204 MPV 9.2 Immature Gran % 0.2 Neutrophils % 54.5 Lymphocytes % 30.3 Monocytes % 9.6 Eosinophils % 4.4 Basophils % 1.0 Nucleated RBC % 0.0 Absolute Neutrophils 4.54 Absolute Lymphocytes 2.52 Absolute Monocytes 0.80 Absolute Eosinophils 0.37 Absolute Basophils 0.08 APTT Pending 60.4 H 40.3 H Sodium 140 Potassium 4.1 Chloride 105 Carbon Dioxide 28.2 Anion Gap 6.8 BUN 21 H Creatinine 1.3 Est GFR (CKD-EPI 2020) 60.21 Glucose 126 H Calcium 9.1 Magnesium 2.0 Total Bilirubin AST ALT Alkaline Phosphatase Troponin I 314 H* Total Protein Albumin 08/13/24 08/13/24 08/13/24 19:05 17:23 15:03 WBC RBC Hgb Hct MCV MCH MCHC RDW Plt Count MPV Immature Gran % Neutrophils % Lymphocytes % Monocytes % Eosinophils % Basophils % Nucleated RBC % Absolute Neutrophils Absolute Lymphocytes Absolute Monocytes Absolute Eosinophils Absolute Basophils APTT Sodium Potassium Chloride Carbon Dioxide Anion Gap BUN Creatinine Est GFR (CKD-EPI 2020) Glucose Calcium Magnesium Total Bilirubin AST ALT Alkaline Phosphatase Troponin I 338 H* 311 H* 308 H* Total Protein Albumin 08/13/24 08/13/24 13:05 11:27 WBC RBC Hgb Hct MCV MCH MCHC RDW Plt Count MPV Immature Gran % Neutrophils % Lymphocytes % Monocytes % Eosinophils % Basophils % Nucleated RBC % Absolute Neutrophils Absolute Lymphocytes Absolute Monocytes Absolute Eosinophils Absolute Basophils APTT 27.6 Sodium 138 Potassium 4.5 Chloride 101 Carbon Dioxide 29.5 Anion Gap 7.5 BUN 29 H Creatinine 1.5 H Est GFR (CKD-EPI 2020) 50.71 Glucose 186 H Calcium 9.7 Magnesium 1.9 Total Bilirubin 0.65 AST 14 L ALT 10 L Alkaline Phosphatase 89 Troponin I 305 H* 309 H* Total Protein 7.6 Albumin 3.7 PFSH All Active Problems (Updated 08/13/24 @ 17:47 by Adele Temple APRN) Dehydration (Acute) Contraindication to deep vein thrombosis (DVT) prophylaxis (Acute) Elevated troponin I measurement (Acute) ACS (acute coronary syndrome) (Acute) Acute non-ST elevation myocardial infarction (NSTEMI) (Acute) Hypoglycemia (Acute) Diabetes mellitus with peripheral angiopathy without gangrene (Acute) Diabetes mellitus with autonomic neuropathy (Acute) PAD (peripheral artery disease) (Acute) Onychomycosis (Acute) Skin-picking disorder (Acute) Atypical nevus (Acute) History of melanoma (Acute) ICD (implantable cardioverter-defibrillator), biventricular, in situ (Acute) medtronic ICD for [employer]. 06/16/2019 in [place]. 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 ER, [place] Hx of cardiac pacemaker Chronic left-sided heart failure Diabetic neuropathy Type 2 diabetes mellitus Surgical History Hx of CABG 07/26/24 CABG x3 06/14/24 at [facility] with MARIALUISA exploration/clipping and removal of mediastinal mass, [facility] Family History Mother Diabetes Cancer Father Heart disease Hypertension Social History Smoking/Tobacco Use Status: Former Tobacco Use Quit Date: 04/04/24 Smoking risk assessment performed?: Yes Alcohol Intake: never Drug use: Occasionally Substance use type: marijuana Housing: apartment Do you feel safe at home: Yes Do you feel safe in your relationship?: Yes Time Spent with Patient Time Spent with Patient: 70-84 minutes4 Time was spent: preparing to see the patient(eg.review tests), obtaining and/or reviewing separately otained hiistory, ordering medications,tests, procedures, referring, communicating with other health healthcare analyst, indepentently interpreting results, counseling the patient and care coordination
--- NOTE | 2024-08-14 12:20 | PDOC.CMDIS ---
Date of service: 08/14/24 Time of Service: 12:20 LACE Index Scoring Tool Questions: Length of Stay (in days): 1 Was the patient admitted via the E.D.?: Yes Comorbidities: Previous M.I., Mild Liver/Renal Disease, Liver or Renal Disease and Metastatic Solid Tumor (HX of melanoma) E.D. Visits: 3 Answers: Total Score: 12 Risk of Readmission: High Risk Care Management Discharge Plan Reason for Hospitalization: ACS, elevated troponins, hypotension Discharge Plan: Arturo is being transferred to [facility] for Acute Inpatient Care, EMS will transport. Patient/Family Education Needs: Review transfer instructions, Discuss ask me three. Services Needed at Discharge: Transportation (EMS, [facility], being coordinated by RN supervisor machining) SDOH Health Related Social Needs: No Data to Display
[2024-08-14 12:59] LABS: PTT Activated 55.3 sec (20.6-30.2)
== END 2024-08-14 18:10 | disposition short-term general hospital (02) | DRG 311 ==
LOC: ER 16:14 → MS 20:20
PROVIDERS: Family Medicine; Nurse Practitioner Acute Care; Admitting Provider Hospitalist; Emergency Provider Student in an Organized Health Care Education/Training Program; PCP Family Medicine; Visit Provider Hospitalist
DX: I24.9 Acute ischemic heart disease, unspecified (principal); I42.5 Other restrictive cardiomyopathy; I50.1 Left ventricular failure, unspecified; I25.10 Atherosclerotic heart disease of native coronary artery without angina pectoris; Z95.1 Presence of aortocoronary bypass graft; R74.8 Abnormal levels of other serum enzymes; I10 Essential (primary) hypertension; E86.0 Dehydration; E11.649 Type 2 diabetes mellitus with hypoglycemia without coma; I25.2 Old myocardial infarction; E11.42 Type 2 diabetes mellitus with diabetic polyneuropathy; I73.9 Peripheral vascular disease, unspecified; F41.8 Other specified anxiety disorders; I11.0 Hypertensive heart disease with heart failure; Z95.810 Presence of automatic (implantable) cardiac defibrillator; H53.8 Other visual disturbances; R42 Dizziness and giddiness
CPT/HCPCS: 00123; 36415; 36416; 80048; 80053; 82962; 93005; 96365; 96366; 99291; 83735; 84484; 85025; 85730; 93010; 99223; 99233; 99239; J1644; J1815; J3490

== ENCOUNTER 2024-09-03 10:27 | Outpatient (RCR) | payer MEDICARE, SELFPAY ==
--- OUTSIDE RECORDS SUMMARY | 2024-08-13 11:20 | XMS_ITS | Clinical Summary ---
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, <= 40%) 06/05/2024 Coronary artery disease invo lving pilot station coronary artery of pilot station heart without angina pectoris 06/05/2024 Type 2 diabetes mellitus 06/05/2024 STEMI (ST elevation myocardial infarction) 06/02 Encounters Date Type Department Care Team Description 07/20/2024 3:20 PM EST Office Visit Cardiac Surgery at [place] [phone] Wendi Loja MD Post-operative state 07/20/2024 Notes Only Cardiology at [place] [phone] Esha Jones RN 07/20/2024 Travel 06/15/2024 Unscheduled Encounter Cardiology at [address] [phone] Ross Corbin PA Cardiac resynchronization therapy defibrillator (FINANCIAL SERVICES SPECIALIST-D) in place [Z95.810] 06/14/2024 7:30 AM EST - 06/14/2024 2:08 PM EST [place] [phone] Wendi Loja MD @CABG, USING ARTERIAL GRAFT;SINGLE ARTERIAL GRAFT (WRVU 33.75) 06/14/2024 7:30 AM EST Anesthesia [place] [address] Hosea Ardon MD Budney, Colleen E, CRNA 06/14/2024 Unscheduled Encounter Cardiology at [address] [phone] Ross Corbin PA Cardiac resynchronization therapy defibrillator (FINANCIAL SERVICES SPECIALIST-D) in place [Z95.810] 06/13/2024 9:00 AM EST - 06/13/2024 10:00 AM EST Surgery Drapery Hand [place] [phone] Nuha Shen MD CARDIAC CATHETERIZATION 06/08/2024 Ophth Exam Ophthalmology at [place] [phone] Yumiko De La Torre, COT 06/03/2024 [place] [address] Unknown 06/03/2024 Travel 06/02/2024 11:09 PM EDT - 06/21/2024 1:07 PM EST Hospital Encounter Heart and Vascular Unit Level 4 Wing B at [place] [phone] Nuha Shen MD Costa, MD Lucio [place], MD Gerardo Mackey, MD Fitz Duval, MD Freedom Lopez, Wendi Santiago MD ST elevation myocardial infarction (STEMI), unspecified artery; Coronary artery disease involving pilot station coronary artery of pilot station heart without angina pectoris; S/P CABG x 3 Discharge Disposition: Home with [facility] 06/02/2024 11:00 PM EDT - 06/03/2024 12:18 AM [place] [address] Nuha Shen MD CARDIAC CATHETERIZATION 06/02/2024 External [place] [address] 06/02/2024 [place] [address] Sascha Silva MD from Last 3 Months Social History Tobacco Use Types Packs/Day Years Used Date Smoking Tobacco: Every Day Cigarettes Smokeless Tobacco: Never Tobacco Cessation:Ready to Q uit: No; Counseling Given: Yes [facility] Utilities Answer Date Recorded In the past [...] any time in the past 12 m [facility], were you homeless or living in a residential (including now)? No 06/03/2024 DH IPV Inpatient [...] history exists Medical Devices Implanted Type Area English Division Chair Device Identifier Shelf Expiration Date Model / Serial / Lot Mdt Amplia Mri Quad Crtd-06/16/2019 Implanted:06/16/2019 (Quantity not on file) Cardiac Resynchronizati on Therapy - Defibrillator Chest Medtronic Cardio - 4287 [id number] / [id number] / Description:When scanned at [facility] ([place]), this SureScan System ([id number] and leads 4076, 6935M, and 4298) can [...] taken out of at the conclusion. Octaviano Moarnavya RT (R)(MR) 06/04/2024 Clip 35mm Closure Exclusion System Preloaded Atriclip ([id number]) (Autoreq) - [id number] Implanted:Qty: 1 on 06/14/2024 by Wendi Loja MD at [facility] IMPLANTS N/A: Heart ATRICURE - ATRICURE 03/04/2027 [id number] / / [id number] Cable,Cut,Edg,Blnt,S s,3tpr ([id number]) - [id number] Implanted:Qty: 1 on 06/14/2024 by Wendi Loja MD at [facility] IMPLANTS Midline: Sternum [employer] - [id number] 09/10/2028 [id number] / / [id number] Janett 4076 Capsurefix Novus Lead-06/16/2019 Implanted:Qty: 1 on 06/16/2019 Lead Chest Medtronic Cardio - 4287 4076 / [id number] / Description:Atrial Lead 4076 See Generator Tab for MRI Conditions Octaviano Morgannavya RT (R)(MR) 06/04/2024 Janett 6935m Lead-06/16/2019 Implanted:Qty: 1 on 06/16/2019 Lead Chest Medtronic Cardio - 4287 6935M / [id number] [id number] / Description:RV Lead See Generator Tab for MRI Conditions Octaviano Hawkins RT (R)(MR) 06/04/2024 Mdt 4298 Attain Performa Lead-06/16/2019 Implanted:Qty: 1 on 06/16/2019 Lead Chest Medtronic Cardio - [id number] 4298 / [id number] / Description:LV Lead See Generator Tab [...] 8:39 AM EST Unlisted Cardiac Surg Procedure ([id number]) 06/14/2024 7:34 AM EST 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 RES[facility] Routine 06/02/2024 9:54 PM EDT from Last 3 Months Results * POC, GLUCOSE (07/20/2024 4:31 PM EST) Only the most recent of134 resultswithin the time period is included. [facility] Glucometer, POC 125 65 - 199 mg/dL 07/20/2024 4:31 PM EST [facility] Comment:Supplemental ranges: <140 mg/dL before meals <180 mg/dL all other times of the day. Blood CAPILLARY BLOOD / Unknown 07/20/2024 4:31 PM EST 07/20/2024 4:31 PM EST Wendi Loja MD POINT OF CARE TEST O RDERABLES [facility] [place] [address] * Scan Doc: Telemetry Strips (06/21/2024 7:50 [...] - 5.0 mMol/L 06/21/2024 3:10 AM EST [facility] Chloride 100 98 - 107 mMol/L 06/21/2024 3:10 AM EST [facility] Carbon Dioxide 27 22 - 31 mMol/L 06/21/2024 3:10 AM EST [facility] Anion Gap 11 5 - 15 mMol/L 06/21/2024 3:10 AM [facility] Calcium 8.7 8.5 - 10.5 mg/dL 06/21/2024 3:10 AM [facility] Est Glomerular Filtration Rate - Male 64 mL/min/1. 73 m?? 06/21/2024 3:10 AM EST [place] EST Keila Dayan CHOU CHEMISTRY ORDERABL ES [facility] [place] [address] * XR Chest PA & Lateral (Generic) (06/17/2024 1:46 PM EST) Only the most recent of2 resultswithin the time period is included. Revolv WORKSTATION ID [id number] RAD Anatomical Region Laterality Modality Chest N/A [...] who have questions please contact the health long term acute care registered nurse that requested your imaging first. ? Electronically signed by: Josselyn Spence MD, [facility] ([phone]), at 06/17/2024 4:49 PM Narrative 06/17/2024 4:49 [...] patients who have questions please contactthe health long term acute care registered nurse that requested your imaging first. Electronically signed by: Josselyn Spence MD, [facility]([phone]), at 06/17/2024 4:49 PM Keila Hanley APRN [...] MD HEMATOLOGY ORDERABLE S Performing Organization Address City/[facility]/ZIP Co de Phone Number [facility] [place] [address] * Lactate, Whole Blood (06/17/2024 2:39 AM EST) Only the most recent of3 resultswithin the time period is included. Lactate, Whole Blood 1.3 0.5 - 2.2 mmol/L 06/17/2024 2:46 AM EST [facility] Blood VENOUS BLOOD SPECIMEN / Unknown Venipuncture / Unknown 06/17/2024 2:39 AM EST 06/17/2024 2:43 AM EST Wendi Loja MD CHEMISTRY ORDERABLES Performing Organization Address [facility] Co de Phone Number [facility] [place] [address] * (ABNORMAL) Cooximetry, POC (06/15/2024 9:31 AM [...] [facility] [place] [address] * (ABNORMAL) Blood Gas, Arterial POC (06/15/2024 [...] - 5.0 mmol/L 06/15/2024 9:21 AM EST [facility] Chloride, Arterial 106 98 - 107 mmol/L 06/15/2024 9:21 AM EST [facility] Lactate, Arterial 1.7 0.5 - 2.2 mmol/L 06/15/2024 9:21 AM EST [facility] Flow Rate 2.0 L/min 06/15/2024 9:21 AM EST [place] [facility] [place] [address] * XR Chest One View (06/15/2024 6:31 AM EST) Only the most recent of4 resultswithin the time period is included. WORKSTATION ID [id number] RAD Anatomical Region Laterality Modality Chest N/A [...] who have questions please contact the health long term acute care registered nurse that requested your imaging first. ? Electronically signed by: Stuart Aponte MD, [facility] ??([phone]), at 06/15/2024 10:38 AM Narrative 06/15/2024 10:38 [...] patients who have questions please contactthe health long term acute care registered nurse that requested your imaging first. Electronically signed by: Stuart Aponte MD, [facility]([phone]), at 06/15/2024 10:38 AM Wendi Loja MD IMG DX ORDERABLES * (ABNORMAL) Troponin - Single (06/15/2024 1:48 AM EST) [facility] Troponin-T, High Sensitivity 667(H) <=22 ng/L [...] troponin value can be found in the [facility] Laboratory Test Catalog Troponin - [email or web address]/catalogs/565/files/25326 Reference: [place] Definition of Myocardial Infarction. Journal of the [place] College [employer] 2018;72:9280-0066 Blood VENOUS BLOOD SPECIMEN / Unknown Venipuncture / Unknown 06/15/2024 1:48 AM EST 06/15/2024 1:52 AM EST Wendi Loja MD CHEMISTRY ORDERABLES [facility] [place] [address] * (ABNORMAL) CBC (with Diff) (06/15/2024 1:48 AM EST) Only the most recent of13 resultswithin the time period is included. [facility] White Blood Cell 11.71(H) 4.00 - 9.50 x10(3)/mc L 06/15/2024 2:13 AM EST [facility] Red Blood Cell 4.14(L) 4.58 - 5.54 x10(6)/mc L 06/15/2024 2:13 AM [facility] Hemoglobin 12.5(L) 13.7 - 16.5 [...] 3.20 x10(3)/mc L 06/15/2024 2:13 AM EST [facility] Monocyte % 11.4 % 06/15/2024 2:13 AM [facility] Monocyte Absolute 1.33(H) 0.30 - 0.90 x10(3)/mc L 06/15/2024 2:13 AM EST [facility] Eos % 0.2 % 06/15/2024 2:13 AM EST [facility] Eos Absolute <0.04 0.00 - 0.40 x10(3)/mc L 06/15/2024 2:13 AM EST [facility] Basophil % 0.2 % 06/15/2024 2:13 AM [facility] Baso Absolute <0.04 0.00 - 0.10 x10(3)/mc L 06/15/2024 2:13 AM [facility] Immature Gran % 0.5 % 2:13 AM [facility] Immature Gran Absolute 0.06(H) 0.00 - 0.04 x10(3)/mc L 06/15/2024 2:13 AM [facility] Blood VENOUS BLOOD SPECIMEN / Unknown Venipuncture / Unknown 06/15/2024 1:48 AM EST 06/15/2024 1:52 AM EST Wendi Loja MD HEMATOLOGY ORDERABLE S [facility] [place] [address] * Potassium (06/14/2024 11:28 PM EST) Only the most recent of13 resultswithin the time period is included. Potassium 4.1 3.5 - 5.0 mMol/L 06/14/2024 11:54 PM EST [facility] Blood VENOUS BLOOD SPECIMEN / Unknown Venipuncture / Unknown 06/14/2024 11:28 PM EST 06/14/2024 11:34 PM EST Wendi Loja MD CHEMISTRY ORDERABLES [facility] [place] [address] * (ABNORMAL) Hemoglobin (06/14/2024 6:19 PM EST) Pathologist [facility] Hemoglobin 13.1(L) 13.7 - 16.5 g/dL 06/14/2024 7:08 PM EST [facility] Blood VENOUS BLOOD SPECIMEN / Unknown Venipuncture / Unknown 06/14/2024 6:19 PM EST 06/14/2024 6:28 PM EST Wendi Loja MD HEMATOLOGY ORDERABLE S Performing Organization Address [facility]/ZIP Co de Phone Number [facility] [place] [address] * EKG 12 Lead (06/14/2024 2:46 PM EST) Only the most recent of2 resultswithin the time period is included. [facility] Ventricular rate 80 BPM MUSE SYSTEM Atrial Rate 80 BPM MUSE SYSTEM P-R Interval 120 ms MUSE SYSTEM QRS Duration 108 ms MUSE SYSTEM Q-T Interval 454 ms MUSE SYSTEM QTC Calculated (Bezet) 523 ms MUSE SYSTEM Calculated P Ferris 70 degrees MUSE SYSTEM Calculated R Ferris 56 degrees MUSE SYSTEM Calculated T Ferris 50 degrees MUSE SYSTEM INTERPRETATION AV dual-paced rhythm Abnormal ECG When compared with ECG of 03-JUN-2024 01:45, Vent. rate has increased BY ??17 BPM Confirmed by MD Marislo, Shaheen ([id number]) on 06/15/2024 1:57:23 PM MUSE SYSTEM 06/14/2024 2:46 PM EST 06/15/2024 1:57 PM EST Wendi Loja MD ECG ORDERABLES Performing Organization Address City/[facility]/ZIP Co de Phone Number MUSE SYSTEM * Prepare RBC (06/14/2024 2:27 PM EST) Pathologist [facility] Status Information Returned [facility] Product Identification RBC [facility] Unit Number [id number] [facility] Product Code G0234B77 [facility] Unit Blood Type OPOS [facility] Specimen Expiration Date [facility] Volulme 350 [facility] Issue Date / Time [facility] Status Information Returned [facility] Product Identification RBC [facility] Unit Number [id number] [facility] Product [facility] [id number] [facility] Unit Blood Type OPOS [facility] Specimen Expiration Date [facility] Volulme 350 [facility] Issue Date / Time [facility] Blood 06/14/2024 6:2 5 AM EST Haja Byrnes MD BLOOD BANK PRODUCT O RDERABLES Performing Organization Address City/[facility]/ZIP Co de Phone Number [facility] [place] [address] * (ABNORMAL) Platelet count (06/14/2024 12:30 PM EST) Only the most recent of2 resultswithin the time period is included. Pathologist [facility] Platelet 73(L) 145 - 357 x10(3)/mcL 06/14/2024 12:54 PM EST [facility] Blood ARTERIAL BLOOD / Unknown 06/14/2024 12:30 PM EST Comment:Pre-op diagnosis: CAD Wendi Loja MD HEMATOLOGY ORDERABLE S Performing Organization Address City/[facility]/ZIP Co de Phone Number [facility] [place] [address] * (ABNORMAL) Hemoglobin and Hematocrit, blood (06/14/2024 [...] MD HEMATOLOGY ORDERABLE S Performing Organization Address [facility] Co de Phone Number [facility] [place] [address] * APTT (06/14/2024 12:30 PM EST) Only [...] MD HEMATOLOGY ORDERABLE S Performing Organization Address City/[facility]/ZIP Co de Phone Number [facility] [place] [address] * (ABNORMAL) Prothrombin Time (06/14/2024 12:30 PM [...] MD HEMATOLOGY ORDERABLE S Performing Organization Address [facility]/ZIP Co de Phone Number [facility] [place] [address] * Fibrinogen (06/14/2024 12:30 PM EST) Fibrinogen 211 200 - 393 mg/dL 06/14/2024 12:57 PM EST [facility] Comment: A fibrinogen level >100 mg/dL is adequate for hemostasis in most patients without underlying bleeding disorders. Blood ARTERIAL BLOOD / Unknown 06/14/2024 12:30 PM EST 06/14/2024 12:42 PM EST Comment:Pre-op diagnosis: CAD Wendi Loja MD HEMATOLOGY ORDERABLE S Performing Organization Address [facility] Co de Phone Number [facility] [place] [address] * (ABNORMAL) Scan, Peripheral Blood (06/14/2024 11:23 AM EST) RBC Morphology Abnormal 06/14/2024 11:59 AM EST [facility] Platelet Estimate Decreased(A) Normal 06/14/2024 11:59 AM EST [facility] Aretha cells 1-5 /HPF 06/14/2024 11:59 AM EST [facility] Blood ARTERIAL BLOOD / Unknown 06/14/2024 11:23 AM EST 06/14/2024 11:27 AM EST Wendi Loja MD HEMATOLOGY ORDERABLE S [facility] [place] [address] * Surgical Pathology (06/14/2024 9:53 AM EST) Case Report Surgical Pathology Report ? Case: [id number] ? Authorizing Provider: ??Wendi Loja MD ? Collected: ? 06/14/2024 0953 ? Ordering Location: ? Main Operating Room [place] ?? Received: ?06/14/2024 1413 ? [facility] ? Pathologist: ? [...] Inking: External surface inked black Sections/Process ing: Funeral Prearrangement Counselor sections in 4 cassettes labeled A1-A4. cmk B. Heart, Atrial Appendage, Left, . B - Labeled/Fixative : Heart, atrial appendage, left, fresh. Quantity/Size: Single, 3.3 x 1.5 x 0.8 cm. Tissue Description: Portion of heart tissue consisting of rodriguez-white, semitranslucent, smooth endocardium with rodriguez-brown muscular myocardium and thin translucent epicardium with adherent adipose tissue. No areas of discoloration identified. Sections/Process ing: Funeral Prearrangement Counselor sections in 1 cassette labeled B1. cmk 06/18/2024 10:18 AM [facility] Result Note Routine 06/18/2024 10:18 AM EST [facility] Tissue SOFT TISSUE MASS / Unknown 06/14/2024 9:53 AM EST 06/14/2024 2:13 PM EST Comment:Mediastinal mass Tissue specimen (specimen) LEFT ATRIAL APPENDAGE ABSENT / Unknown 06/14/2024 10:54 AM EST 06/14/2024 2:13 PM EST Comment:MARIALUISA Wendi Loja MD PATHOLOGY/CYTOLOGY O RDERABLES [facility] [place] [address] * Transesophageal Echo/OR (06/14/2024 7:20 AM EST) Anatomical Region Laterality Modality Cardiac Other 06/14/2024 7:20 AM EST Narrative 06/14/2024 4:36 PM EST Version: 2 Study ID: [id number] [address] [place] [address] ?OR Transesophageal Echo Report Name: GEORGE MEHTA [...] of this mass after consultation with other manager engagement experts and the decision was made by [...] MD - 06/14/2024 Version: 2 Study ID: [id number] [address] [place] [address] ORTransesophageal Echo Report Name: GEORGE MEHTA Study Date: 06/14/2024,7: 20 AM Patient Location:^GA16^A : 1955 Age: 69 Years Gender: Male [...] of this mass after consultation with other manager engagement experts and thedecision was made by surgeon [...] EST Shahnaz Mares MD HEMATOLOGY ORDERABLE S [facility] [place] [address] * Magnesium (06/14/2024 12:12 AM EST) Only the most recent of12 resultswithin the time period is included. Magnesium 0.74 0.69 - 1.07 mMol/L 06/14/2024 12:57 AM EST [facility] Blood VENOUS BLOOD SPECIMEN / Unknown Venipuncture / Unknown 06/14/2024 12:12 AM EST 06/14/2024 12:29 AM EST Shahnaz Mares MD CHEMISTRY ORDERABLES [facility] [place] [address] * Scan Doc: Implantable Devices (06/14/2024 12:00 AM EST) Narrative 06/14/2024 12:00 AM EST Ordered by an unspecified provider. Scanning Provider MEDIA MGR SCAN EXT O RDR/RSLT * ABORH RECHECK (06/13/2024 4:11 PM EST) ABORH Recheck O POSITIVE 06/13/2024 4:50 PM EST [facility] Blood VENOUS BLOOD SPECIMEN / Unknown Venipuncture / Unknown 06/13/2024 4:11 PM EST 06/13/2024 4:19 PM EST Haja Byrnes MD BLOOD BANK LAB ORDER EUSEBIA Performing Organization Address City/[facility]/ZIP Co de Phone Number [facility] [place] [address] * Type and screen ([facility]/CGP/RAFITA) (06/13/2024 11:53 AM EST) ABORH Type O POSITIVE 06/13/2024 1:16 PM EST [facility] PATIENT HISTORY Not Found 06/13/2024 1:16 PM EST [facility] Expires at [id number] on: 06/16/2024 06/13/2024 1:16 PM EST [facility] ANTIBODY SCREEN AUTOMATED Negative 06/13/2024 1:16 PM EST [facility] T&S only valid at [facility] 06/13/2024 1:16 PM EST [facility] Blood VENOUS BLOOD SPECIMEN / Unknown Venipuncture / Unknown 06/13/2024 11:53 AM EST 06/13/2024 11:56 AM EST Narrative [facility] - 06/13/2024 1:16 PM EST This Type and Screen result is only valid at the [facility] Haja Byrnes MD BLOOD BANK LAB ORDER EUSEBIA [facility] [place] [address] * CARDIAC CATHETERIZATION (06/13/2024 9:02 AM EST) Only the most recent of2 resultswithin the time period is included. Anatomical Region Laterality Modality Other Narrative 06/15/2024 9:07 AM EST ?[facility] ? Cardiac Catheterization/Intervention Report ? Patient Name: Tyson, George L. ? Procedure Date: 06/13/2024 ? A #: [id number] ? Primary Physician: Nuha Shen I ? Case #: [id number] ? File Name: [id number] ? Catheterization Order Number: [id number] ? [facility] ? Final Report [place], [place] ? Patient Name: ? George L. Tyson ? ID#: ?[id number] ? : ?1955 ? Procedure Date: ? June 13, 2024 ?Case #: ? [id number] ? Room: ? 6 ? Case Physician: [...] ?was designated as ASA Class IV. The [facility] clinical frailty scale is 5: ?Mildly [...] procedure was Urgent. The indication for ?the medical laboratory manager visit is ACS greater than [...] angiography, vascular ?ultrasound and IABP insertion in medical laboratory manager. ? Nuha Sehn M.D. ? Electronically Signed by: Nuha Shen M.D. ? Report Finalized: 06/15/2024 ??08:59 ? Procedure Note Nuha Shen MD - 06/15/2024 [facility] Cardiac Catheterization/Intervention Report Patient Name: George Mehta Procedure Date: 06/13/2024 A #: [id number] Primary Physician: Nuha Shen I Case #: [id number] File Name: [id number] Catheterization Order Number: [id number] [facility] FinalReport [place], [place] Patient Name: George RaadViry Mehta ID#:[id number] :1955 Procedure Date: June 13, 2024 Case [...] was designated as ASA Class IV. The [facility] clinical frailty scale is5: Mildly Frail. [...] diagnostic procedure was Urgent. The indicationfor the medical laboratory manager visit is ACS greater than [...] site angiography,vascular ultrasound and IABP insertion in medical laboratory manager. Nuha Shen M.D. Electronically Signed by: Nuha Shen M.D. Report Finalized: 06/15/2024 08:59 Nuha Rojo MD CARDIAC CATH ORDERA BLES * (ABNORMAL) Blood Gas, Venous (06/10/2024 5:42 PM EST) pH, Venous 7.34 7.32 - 7.42 06/10/2024 5:50 PM [facility] PCO2, Venous 52 38 - 58 mmHg 06/10/2024 5:50 PM [facility] PO2, Venous 24 16 - 65 mmHg 06/10/2024 5:50 PM [facility] Bicarbonate, Venous 27.4 22 - [...] Venous 0.5 <=1.5 % 06/10/2024 5:50 PM [facility] Sodium, Venous 137 135 - 145 mmol/L 06/10/2024 5:50 PM [facility] Chloride, Venous 96(L) 98 - 107 mmol/L 06/10/2024 5:50 PM [facility] Potassium, Venous 4.6 3.5 - 5.0 mmol/L 06/10/2024 5:50 PM [facility] Ionized Calcium, Venous 1.23 1.15 - 1.33 mmol/L 06/10/2024 5:50 PM [facility] Glucose, Venous 114 65 - 199 mg/dL 06/10/2024 5:50 PM [facility] Comment:Glucose Concentratio n >=200 mg/dL plus symptoms is consistent with Diabetes Mellitus. Lactate, Venous 1.1 0.5 - 2.2 mmol/L 06/10/2024 5:50 PM EST [facility] Blood Gas Source Venous 06/10/20 5:50 PM EST [facility] Blood VENOUS BLOOD SPECIMEN / Unknown Blood Gas Venous / Unknown 06/10/2024 5:42 PM EST 06/10/2024 5:47 PM EST Melida Valdes MD CHEMISTRY ORDERABLES [facility] [address] [place] [address] * MRI Cardiac Morphology Function wwo Contrast (06/07/2024 1:10 PM EST) [employer] WORKSTATION ID [id number] DH RAD Anatomical Region Laterality Modality Magnetic [...] - Mildly dilated left ventricle size with mzbilznl-rs-jeiqvrle decreased LV systolic function. ??LV ejection fraction [...] who have questions please contact the health long term acute care registered nurse that requested your imaging first. ? Electronically signed by: Kriss Alonzo MD, [facility] ([phone]), at 06/07/2024 2:41 PM Narrative 06/07/2024 2:41 [...] VENTRICLE: Mildly dilated left ventricle size with ewyvzugk-rl-uynusrzf decreased LV systolic function. ??LV ejection fraction [...] VENTRICLE: Mildly dilated left ventricle size with sgobhuqc-fa-amdakqag decreasedLV systolic function. LV ejection fraction is [...] - Mildly dilated left ventricle size with lytehpos-xd-cxnbfgkl decreasedLV systolic function. LV ejection fraction is [...] patients who have questions please contactthe health long term acute care registered nurse that requested your imaging first. Electronically signed by: Kriss Alonzo MD, [facility]([phone]), at 06/07/2024 2:41 PM Delroy Fofana MD [...] red blood cell turnover may not be premium representative of glycemic control. Reference Interval: 4.3 - 5.6% 5.7 - 6.4%: Consistent with prediabetes >=6.5%: Consistent with diagnosis of diabetes mellitus Estimated Average Glucose 157 mg/dL 06/06/2024 1:01 PM EST [facility] Blood VENOUS BLOOD SPECIMEN / Unknown Venipuncture / Unknown 06/06/2024 3:33 AM EST 06/06/2024 3:48 AM EST Alejandra Baumann APRN CHEMISTRY ORDERAB LES [facility] [place] [address] * Scan Doc: Implantable Devices (06/04/2024 12:00 AM EDT) Narrative 06/04/2024 12:00 AM EDT Ordered by an unspecified provider. Scanning Provider MEDIA MGR SCAN EXT O RDR/RSLT * CT Chest wo Contrast (Generic) (06/03/2024 4:33 PM EDT) WORKSTATION ID [id number] DH RAD Anatomical Region Laterality Modality Chest Computed Tomogra phy Impressions 06/03/2024 4:47 PM EDT Cardiomegaly. Biventricular ICD leads in place. Thank you for letting us participate in the care of this patient. ??If you are a health care provider and have any questions regarding this report, please contact the number below. ??For patients who have questions please contact the health long term acute care registered nurse that requested your imaging first. ? Electronically signed by: Stuart Aponte MD, [facility] ??([phone]), at 06/03/2024 4:47 PM Narrative 06/03/2024 4:47 [...] patients who have questions please contactthe health long term acute care registered nurse that requested your imaging first. Electronically signed by: Stuart Aponte MD, [facility]([phone]), at 06/03/2024 4:47 PM Wendi Loja MD IMG CT ORDERABLES * Carotid Duplex, Bilateral (06/03/2024 2:19 PM EDT) VB Text Report Department: Vascular Surgery Lab Patient: [id number] (GEORGE MEHTA) CPT: 99803 Referring Physician: WENDI LOJA ?? Phone: Indications: [...] troponin value can be found in the [facility] Laboratory Test Catalog Troponin - https://[facility]-.testcatalog.org/catalogs/565/files/60077 Reference: [place] Definition of Myocardial Infarction. Journal of the [employer] College [employer] 2018;72:5191-8245 Troponin-T, HS 3 hr delta 06/03/2024 10:50 AM EDT [facility] Comment:Delta troponin value not calculated, sample collected outside of delta calculation time limit. Blood VENOUS BLOOD SPECIMEN / Unknown IP Care Team Draw / Unknown 06/03/2024 10:06 AM EDT 06/03/2024 10:15 AM EDT Delroy Fofana MD CHEMISTRY ORDERABLE S [facility] [place] [address] * ECHO COMPLETE W CONTRAST (06/03/2024 8:46 AM EDT) Anatomical Region Laterality Modality Cardiac Other 06/03/2024 6:52 AM EDT Narrative 06/03/2024 10:32 AM EDT [address] [place], [place] [id number] ? Echocardiogram Report Name: GEORGE MEHTA ?Study Date: 06/03/2024 06:52 AM : 1955 ? Height: 168 cm ? Account: [id number] Age: 69 yrs ? Weight: 102 kg Gender: Male ?BSA: 2.1 m2 Ordering Physician: SHAHNAZ MARES Referring Physician: NEHAL QUINTERO Performed By: Sara Kebede RDCS Reason For Study: STEMI Exam Location: [facility]. Interpretation Summary -Left ventricular systolic [...] fellow performed study of today's date). Procedure Complete-[id number]. Image enhancement Optison was used for left [...] Note Jonnie Jordan MD - 06/03/2024 [address] [place] [address] Echocardiogram Report Name: GEORGE MEHTA Study Date: 406:52 AM : 1955 Height: 168 cm Account: [id number] Age: 69 yrs Weight: 102 kg Gender: Male BSA: 2.1 m2 Ordering Physician: SHAHNAZ MARES Referring Physician: NEHAL QUINTERO Performed By: Sara Kebede RDCS Reason For Study: STEMI Exam Location: [facility]. Interpretation Summary -Left ventricular systolic [...] a fellow performed study of's date). Procedure Complete-[id number]. Image enhancement Optison was used for left [...] troponin value can be found in the [facility] Laboratory Test Catalog Troponin - https://one-.testcatalog.org/catalogs/565/files/82260 Reference: [place] Definition of Myocardial Infarction. Journal of the [place] [employer]iology 2018;72:1813-5536 Troponin-T, HS 1 hr delta 5 ng/L [...] [facility] [place] [address] * (ABNORMAL) Troponin-T, High Sensitivity (06/03/2024 7:39 [...] troponin value can be found in the [facility] Laboratory Test Catalog Troponin - https://[facility].testcatalog.org/catalogs/565/files/55668 Reference: [place] Definition of Myocardial Infarction. Journal of the [place] College of Cardiology 2018;72:8580-4879 Blood VENOUS BLOOD SPECIMEN / Unknown IP Care Team Draw / Unknown 06/03/2024 7:39 AM EDT 06/03/2024 7:48 AM EDT Delroy Fofana MD CHEMISTRY ORDERABLE S [facility] [place] [address] * Echocardiogram Transthoracic (06/03/2024 2:23 AM EDT) Anatomical Region Laterality Modality Cardiac Other 06/03/2024 2:23 AM EDT Narrative 06/03/2024 10:32 AM EDT [address] [place] [address] ? Echocardiogram Report Name: GEORGE MEHTA Raad ?Study Date: 06/03/2024 02:23 AM : 1955 Age: 69 yrs Gender: Male Performed By: Sascha Silva MD Reason For Study: STEMI Interpreting Fellow: Sascha Silva. Interpretation Summary Limited echo performed by fellow licensed vocational nurse to assess LV function. Left ventricle is mild to moderately dilated. Left ventricular ejection fraction is estimated visually at 25%. There is global dyskinesia with mid-basilar posterior-posterolateral akinesis. Right ventricle is not well seen. RV systolic function is probably normal. There is no prior echo for comparison. Procedure Limited - [id number]. Suboptimal quality. Ventricular paced. Left Ventricle Left [...] Note Jonnie Jordan MD - 06/03/2024 [address] [place] [id number] Echocardiogram Report Name: GEORGE MEHTA Study Date: 06/03/2024 02:23AM : 1955 Age: 69 yrs Gender: Male Performed By: Sascha Silva MD Reason For Study: STEMI Interpreting Fellow: Sascha Silva. Interpretation Summary Limited echo performed by fellow licensed vocational nurse to assess LV function. Left ventricle is mild to moderately dilated. Left ventricular ejectionfraction is estimated visually at 25%. There is global dyskinesia withmid-basilar posterior-posterolateral akinesis. Right ventricle is not well seen. RV systolic function is probablynormal. There is no prior echo for comparison. Procedure Limited - [id number]. Suboptimal quality. Ventricular paced. Left Ventricle Left [...] AM EDT Shahnaz Mares MD CHEMISTRY ORDERABLES [facility] [place] [address] * (ABNORMAL) pro-Brain Natriuretic Peptide (06/03/2024 2:13 AM EDT) NT-proBNP 1,628(H) <=124 pg/mL 06/03/2024 4:15 AM EDT [facility] Blood VENOUS BLOOD SPECIMEN / Unknown IP Care Team Draw / Unknown 06/03/2024 2:13 AM EDT 06/03/2024 2:32 AM EDT Shahnaz Mares MD CHEMISTRY ORDERABLES [facility] [place] [address] * Hepatic Function Panel (06/03/2024 2:13 AM [...] AM EDT Shahnaz Mares MD CHEMISTRY ORDERABLES [facility] [place] [address] * Lipid Panel (Reflex Direct LDL) (06/03/2024 2:13 AM EDT) Pathologist [facility] Cholesterol, Total 76 mg/dL 06/03/2024 3:02 AM [...] 2:13 AM EDT 06/03/2024 2:32 AM EDT [facility] - 06/03/2024 3:02 AM EDT It [...] artery disease) Shahnaz Mares [place] [address] * External Cardiology Result (06/02/2024 9:54 PM [...] wishes to be Full Code Care Teams Share Holder Relationship Specialty Start Date End Date Mauro Berumen MD [address] [place] [id number] PCP - General Family Medicine 06/02/24
--- OUTSIDE RECORDS SUMMARY | 2024-08-13 11:20 | XMS_ITS | Encounter Summary ---
Author Organization [facility] Address [facility] [place] [address] Care Team Providers Care Breast Buffer Name Role Phone Mauro Berumen MD Primary Care Provider [phone] Encounter Details Date Type Department Care Team (Late st Contact Info) Description 07/20/2024 Notes Only Cardiology at [address] [place] [address] Esha Jones RN Social History Tobacco Use Types Packs/Day Years Used Date Smoking Tobacco: Every Day Cigarettes Smokeless Tobacco: Never [facility] Utilities Answer Date Recorded In the [...] were you homeless or living in a skilled nursing (including now)? No 06/03/2024 DH IPV Inpatient [...] BGL was measured to be 40. Nurse Cement Mason Apprentice Chelsi administered chewable glucose tablets while [...] on filedocumented in this encounter Care Teams Breast Buffer Relationship Specialty Start Date End Date Mauro Berumen MD [address] [place] [address] PCP - General Family Medicine 06/02/24 documented as of this encounter
--- OUTSIDE RECORDS SUMMARY | 2024-08-13 11:20 | XMS_ITS | Encounter Summary ---
Author Organization [facility] Address [facility] [place] [address] Care Team Providers Care Digestion Operator Name Role Phone Mauro Berumen MD Primary Care Provider [phone] Encounter Details Date Type Department Care Team (Latest Contact Info) Description 07/20/2024 Travel Social History Tobacco Use Types Packs/Day Years Used Date Smoking Tobacco: Every Day Cigarettes Smokeless Tobacco: Never [facility] Utilities Answer Date Recorded In [...] any time in the past 12 m [facility], were you homeless or living in a long-term (including now)? No 06/03/2024 IPV Inpatient Questions [...] on filedocumented in this encounter Care Teams Digestion Operator Relationship Specialty Start Date End Date Mauro Berumen MD [address] [place] [id number] PCP - General Family Medicine 06/02/24 documented as of this encounter
--- OUTSIDE RECORDS SUMMARY | 2024-08-13 11:20 | XMS_ITS | Encounter Summary ---
Author Organization [facility] Address [facility] [place] [address] Care Team Providers Care Screwmaker Automatic Name Role Phone Mauro Berumen MD Primary Care Provider [phone] Encounter Details Date Type Department Care Team (Late st Contact Info) Description 07/20/2024 3:20 PM EST Office Visit Cardiac Surgery at [facility] [place] [address] Bobby Loja MD [facility] [place] [address] Post-operative state Social History Tobacco Use Types Packs/Day Years Used Date Smoking Tobacco: Every Day Cigarettes Smokeless Tobacco: Never [facility] Utilities Answer Date Recorded In [...] time in the past 12 m [facility], were you homeless or living in a [place] health care facility (including now)? No 06/03/2024 DH IPV Inpatient [...] has not yet seen his PCP or investigation division lieutenant since surgery. His appetite has been normal [...] cardiac surgery perspective - Follow up with Environmental Department Manager (Kristen Cardenas) and PCP (Mauro Berumen) as [...] * POC, GLUCOSE (07/20/2024 4:31 PM EST) [facility] Signature Glucometer, POC 125 65 - 199 mg/dL 07/20/2024 4:31 PM EST [facility] Comment:Supplemental ranges: <140 mg/dL before meals <180 mg/dL all other times of the day. Blood CAPILLARY BLOOD / Unknown 07/20/2024 4:31 PM EST 07/20/2024 4:31 PM EST Bobby Loja MD POINT [place] [address] documented in this encounter Visit Diagnoses Diagnosis Post-operative state Other postprocedural status documented in this encounter Care Teams Screwmaker Automatic Relationship Specialty Start Date End Date Mauro Berumen MD [address] [place] [address] PCP - General Family Medicine 06/02/24 documented as of this encounter
--- OUTSIDE RECORDS SUMMARY | 2024-08-13 11:22 | XMS_ITS | Encounter Summary ---
Author Organization [facility] Address [facility] [place] [address] Care Team Providers Care Shop Hand Name Role Phone Mauro Berumen MD Primary Care Provider [phone] Reason for Referral * Consultation (Routine) - Authorized Specialty Diagnoses / Procedures Referred By Contac t Referred To Contact Cardiology Diagnoses S/P CABG x 3 Bobby Loja MD [facility] [place] [address] Cardiac Rehab, [address] [place] [address] Referral ID Status Reason Start Date Expiration Date Visits Requested Visits Authorized [id number] Authorized Consult, Test & Treat 06/21/2024 12/18/2024 36 36 * Home Health Care (Routine) - Authorized Specialty Diagnoses / Procedures Referred By Contac t Referred To Contact Diagnoses S/P CABG x 3 Bobby Loja MD [facility] [place] [address] Referral ID Status Reason Start Date Expiration Date Visits Requested Visits Authorized [id number] Authorized Consult, Test & Treat 06/21/2024 12/18/2024 999 999 Reason for Visit * Auth/Cert Specialty Diagnoses / Procedures Referred By Contac t Referred To Contact Diagnoses STEMI (ST elevation myocardial infarction) STEMI Procedures CARDIAC CATHETERIZATION EMERGENCY Delroy Monterroso MD [facility] [place] [address] [facility] Referral ID Status Reason Start Date Expiration Date Visits Re quested Visits Authorized [id number] 1 1 Encounter Details Date Type Department Care Team (Late st Contact Info) Description 06/02/2024 11:09 PM EDT - 06/21/2024 1:07 PM EST Hospital Encounter Heart and Vascular Unit Level 4 [place] [address] Nuha Shen MD [facility] [place] [address] Delroy Fofana MD [facility] [place] [address] Melida Valdes MD [facility] [place] [address] Ethel Carrillo MD [facility] [place] [address] Haja Byrnes MD [facility] [place] [address] Bobby Loja MD [facility] [place] [address] ST elevation myocardial infarction (STEMI), unspecified artery; Coronary artery disease involving wyandotte coronary artery of wy[place]otte heart without angina pectoris; S/P CABG x 3 Discharge Disposition: Home with VNA Social History Tobacco Use Types Packs/Day Years Used Date Smoking Tobacco: Every Day Cigarettes Smokeless Tobacco: Never Tobacco Cessation:Ready to Q uit: No; Counseling Given: Yes C Utilities Answer Date Recorded In the past 12 months has [employer], Belly, oil, or water [employer] threatened to shut off services in your [...] the past 12 m [facility], were you homeless or living in [...] this encounter Discharge Summaries * Keila Hanley, POST COMMANDER - 06/21/2024 8:31 AM EST Inpatient - Discharge Summary Patient Name: George Mehta Patient Age: 69 y.o. Birthdate: 1955 Language: Croatian Race: Choose not to Disclose Ethnicity: Not nor Admit Date: 06/02/2024 Discharge Date: 06/21/2024 Attending Physician: Bobby Loja MD Follow-up Recommendations for Providers: Please continue routine management of cardiovascular risk factors including blood pressure, lipids,glucose, etc. Please note any changes to medications. Patient to follow up with PCP, Mauro Berumen MD, in 1-2 weeks. Patient to follow up with Environmental Health Technician, Kristen Cardenas in 2-3 weeks. Patient to follow up with Cardiac Surgeon, Dr. Bobby Loja, in 4 wks. Inpatient Provider Contact Information: [facility] [place] of [place]iac [place] [facility] [place] [address] FAX [phone] Discharge Diagnoses (Hospital Problems) Primary Diagnoses: STEMI [...] (WRVU 33.75) performed by Bobby Loja MD [facility] OR PRO CABG, ARTERY-VEIN, TWO N/A 06/14/2024 @CABG, TWO VENOUS GRAFTS & ARTERIAL GRAFT (WRVU 7.93) performed by Bobby Loja MD at [facility] OR PRO ENDOSCOPY W/VIDEO-ASST VEIN HARVEST, CABG N/A 06/14/2024 ENDOSCOPIC HARVEST VEIN(S) FOR CABG (WRVU 0.31) performed by Bobby Loja MD at [facility] MAIN OR PRO EXC MEDIASTINAL TUMOR N/A 06/14/2024 @EXCISION OF MEDIASTINAL TUMOR (WRVU 19.55) performed by Bobby Loja MD at [facility] MAIN OR PRO INSERT INTRA-AORTIC BALLOON ASST DEVICE PERCUTANEOUS N/A 06/13/2024 @INSERTION OF IABP,PERCUTANEOUS (WRVU 4.84) performed by Nuha Shen MD at [facility] CATH LABS PRO UNLISTED CARDIAC SURG PROCEDURE N/A 06/14/2024 EXPLORATION AND OVERSEW ATRIAL APPENDAGE (WRVU 5.94) performed by Bobby Loja MD at [facility] [place] Prior To Admission Medications Medications [...] y.o. male with a PMHx of previous [place] s/p PCI x3, ICM/HFrEF (LVEF 30%) s/p ICD, DMII, HTN, HLD, remote melanoma, and smoker who presented to [facility] last night via EMS after developing acute, severe chest pain while watching TV. Patient was ruled in for STEMI, given TNK, ASA, plavix, heparin gtt, and sent to [facility] for coronary angiography. LHC demonstrated severely calcified left coronary system with notable LCx 75/80% lesions and BISCUITWARE BRUSHER OM1 with ISR with collateral retrograde filling, [...] Hospital Course: George Mehta was admitted to [facility] on 06/02/2024 via the CardiologyService with an anterior STEMI after receiving lytics at OSH. He was brought to the clinical laboratory service teacher which showed severely calcified left coronary system with notable LCx 75/80% lesions and BISCUITWARE BRUSHER OM1 with ISR with collateral retrograde filling, [...] 2 tablespoons of dried fruit. Milk and ti-sillk-gresp yogurt have 15 grams of carbs in a serving. A serving is 1 cup of milk or 3/4 cup (6 oz) of nf-ssehe-eclxm yogurt. Starchy vegetables have 15 grams of carbs in a serving. A serving is ?? cup of mashed potatoes or sweet potato; 1 cup winter squash; ?? of a small baked potato; ?? cup of cooked beans; or ?? cup cooked corn or green peas. Learn how much carbs to eat each day and at each meal. A dietitian or certified genetic counselor can teach you how to keep track [...] Bobby Loja and/or the Cardiac Surgery Physician Math And Science Instructor Team may be reached at . Weight: [...] Dr. Bobby Loja. You may use a [place] Track or treadmill but avoid any pulling [...] friends, go to a movie, go to anabaptist, etc. Heavy activities: No hunting, skiing, jogging, [...] should resume a low fat, low cholesterol, [place] Heart Association Diet/Diabetic diet. Driving: No driving [...] while being managed by your PCP and/or Environmental Health Technician. For future medication refills, please refer to your PCP and/or Environmental Health Technician after your discharge from our service. Thank you REMOVE CHEST TUBE SUTURES ON OR AFTER 06/24/2024 Home oxygen therapy: N/A Follow up appointments: You should follow up with your PCP, Mauro Berumen MD, in 1-2 weeks. You should follow up with your Environmental Health Technician, Dr CARDENAS. You have an appointment with your Cardiac Surgeon, Dr. Bobby Loja, in 4 wks. Cardiac Rehabilitation: George Mehta was seen today regarding participation in the outpatient Phase 2 Cardiac Rehabilitation at [facility]. The patient agrees to a referral to this program. The referral will be sent at discharge and the patient should be contacted by the program within 1-2 weeks from discharge. Future Appointments and Orders Future Orders Complete By Expires Referral to Cardiac Rehab [VMA826 Custom] As directed Process Instructions: If no progress note charted, please enter Clinical details in comments. Scheduling Instructions: Questions: My question or request is: s/p CABG- cardiac rehab at [facility] Referral to Home Health [REF34 Custom] As directed Process Instructions: If no progress note charted, please enter Clinical details in comments. Scheduling Instructions: Comments: Please evaluate George Mehta for admission to Home Health. 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 Signed: KEILA HANLEY APRN [facility] Section of [place]iac [place] [facility] [place] [address] FAX [phone] Date: 06/21/2024 CC: MD Antonino Tinajero Joshua R, PA [address] [place] [address] [place] [address] documented in this encounter Discharge Instructions * [...] 2 tablespoons of dried fruit. Milk and wr-qvsja-sgfqo yogurt have 15 grams of carbs in a serving. A serving is 1 cup of milk or 3/4 cup (6 oz) of py-ddqxn-pfgha yogurt. Starchy vegetables have 15 grams of carbs in a serving. A serving is ?? cup of mashed potatoes or sweet potato; 1 cup winter squash; ?? of a small baked potato; ?? cup of cooked beans; or ?? cup cooked corn or green peas. Learn how much carbs to eat each day and at each meal. A dietitian or certified genetic counselor can teach you how to keep track [...] Bobby Loja and/or the Cardiac Surgery Physician Math And Science Instructor Team may be reached at . Weight: [...] Dr. Bobby Loja. You may use a [place] Track or treadmill but avoid any pulling [...] friends, go to a movie, go to anabaptist, etc. Heavy activities: No hunting, skiing, jogging, [...] should resume a low fat, low cholesterol, [place] Heart Association Diet/Diabetic diet. Driving: No driving [...] while being managed by your PCP and/or Environmental Health Technician. For future medication refills, please refer to your PCP and/or Environmental Health Technician after your discharge from our service. Thank you REMOVE CHEST TUBE SUTURES ON OR AFTER 06/24/2024 Home oxygen therapy: N/A Follow up appointments: You should follow up with your PCP, Mauro Berumen MD, in 1-2 weeks. You should follow up with your Environmental Health Technician, Dr CARDENAS. You have an appointment with your Cardiac Surgeon, Dr. Bobby Loja, in 4 wks. Cardiac Rehabilitation: George Mehta was seen today regarding participation in the outpatient Phase 2 Cardiac Rehabilitation at [facility]. The patient agrees to a referral [...] of your patient's venous access was performed [facility] theVascular Access Service. The following tasks were [...] MARIALUISA clipping. PMH of chronic HFrEF s/p INSTALLER TECHNICIAN/ICD, IDDM2, HTN, HLD, remote melanoma, active smoker. [...] 2 tablespoons of dried fruit. Milk and bv-qptlq-wuvvt yogurt have 15 grams of carbs in a serving. A serving is 1 cup of milk or 3/4 cup (6 oz) of jk-geidm-vcziq yogurt. Starchy vegetables have 15 grams of carbs in a serving. A serving is ?? cup of mashed potatoes or sweet potato; 1 cup winter squash; ?? of a small baked potato; ?? cup of cooked beans; or ?? cup cooked corn or green peas. Learn how much carbs to eat each day and at each meal. A dietitian or certified genetic counselor can teach you how to keep track [...] cheese, and peanut butter. Alejandra Baumann APRN [facility] Endocrinology Diabetes Management Pager [phone] Weekends please page [phone] * Eric Packer PA - 06/20/2024 7:44 AM EST Cardiac Surgery Progress Note George Mehta is a 69 y.o. male with a history of CAD s/p multiple PCI who presented with an anterior STEMI and was given lytics. Cath showed MV CAD without culprit vessel. He is now 6 Days Post-OpCABGx3 and MARIALUISA clipping. PMH of chronic HFrEF s/p INSTALLER TECHNICIAN/ICD, IDDM2, HTN, HLD, remote melanoma, active smoker. 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 06/20/2024 Between the hours of 1800 - 0600 and on the weekends please page [phone]. * Alejandra Baumann APRN - 06/20/2024 7:21 AM EST Follow Up Diabetes Consult Patient Interview Blood glucose values and insulin use reviewed. motorcycle repairer BG to 59 despite decrease in glargine [...] MARIALUISA clipping. PMH of chronic HFrEF s/p INSTALLER TECHNICIAN/ICD, IDDM2, HTN, HLD, remote melanoma, active smoker. motorcycle repairer BG to 59 despite decrease in glargine [...] based on ISF 20 Alejandra Baumann APRN [facility] Endocrinology Diabetes Management Pager [phone] Weekends please page [phone] Insulin Discharge Instructions Preliminary Diabetes Discharge Instructions [...] 2 tablespoons of dried fruit. Milk and yn-xeyoq-vjico yogurt have 15 grams of carbs in a serving. A serving is 1 cup of milk or 3/4 cup (6 oz) of rg-tgowt-hgphx yogurt. Starchy vegetables have 15 grams of carbs in a serving. A serving is ?? cup of mashed potatoes or sweet potato; 1 cup winter squash; ?? of a small baked potato; ?? cup of cooked beans; or ?? cup cooked corn or green peas. Learn how much carbs to eat each day and at each meal. A dietitian or certified genetic counselor can teach you how to keep track [...] MARIALUISA clipping. PMH of chronic HFrEF s/p INSTALLER TECHNICIAN/ICD, IDDM2, HTN, HLD, remote melanoma, active smoker. 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 Jeffy Hood MD 06/19/2024 Between the hours of 1800 - 0600 and on the weekends please page [phone]. * Alejandra Baumann, POST COMMANDER - 06/19/2024 7:09 AM EST Follow Up Diabetes Consult Patient Interview Blood glucose values and insulin use reviewed. Jardiance added back yesterday, early intervention school psychologist low BGto 51. Glargine reduced to 45 [...] MARIALUISA clipping. PMH of chronic HFrEF s/p INSTALLER TECHNICIAN/ICD, IDDM2, HTN, HLD, remote melanoma, active smoker. Jardiance added back yesterday. motorcycle repairer low BG to 51. Glargine reduced to [...] 2 tablespoons of dried fruit. Milk and wo-odrtz-qihtt yogurt have 15 grams of carbs in a serving. A serving is 1 cup of milk or 3/4 cup (6 oz) of mo-vbmkr-fymwt yogurt. Starchy vegetables have 15 grams of carbs in a serving. A serving is ?? cup of mashed potatoes or sweet potato; 1 cup winter squash; ?? of a small baked potato; ?? cup of cooked beans; or ?? cup cooked corn or green peas. Learn how much carbs to eat each day and at each meal. A dietitian or certified genetic counselor can teach you how to keep track [...] cheese, and peanut butter. Alejandra Baumann APRN [facility] Endocrinology Diabetes Management Pager [phone] Weekends please page [phone] * Hilda Resendez PTA - 06/18/2024 9:19 AM EST Physical Therapy Note 2 Patient profile: George Mehta is a 69 y.o. male with a history of CAD s/p multiple PCI who presented with an anterior STEMI and was given lytics. Cath showed MV CAD without culprit vessel. He is now 1 Day Post-Op CABGx3 and MARIALUISA clipping. PMH of chronic HFrEF s/p INSTALLER TECHNICIAN/ICD, IDDM2, HTN, HLD, remote melanoma, active smoker. Interval History: Per last cardiac surgery note on 06/18/2024 Cr improved 1.4 on lasix 40 iv bid -1.5L, made 2.5L urine Coreg, entresto restarted Floor status Social History: Pt lives with his in a 1 level apartment with no steps to enter. 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 He drives. He sleeps in a recliner at baseline. Precautions/Special Considerations: Sternal precautions, PIV, at risk to fall, PPM Mobility and Positioning Recommendations: Pt to utilize no AD, supervision for ambulation and transfers w/ medical staff physician as able. Please encourage up to chair [...] least restrictive device Time IN / OUT: [id number] Total Time: 11 minutes; TEF 1 Hilda Resendez PTA Pager: [phone] Physical Therapy Inpatient Rehabilitation Department * Keila Hanley, POST COMMANDER - 06/18/2024 8:48 AM EST Cardiac Surgery Progress Note George Mehta is a 69 y.o. male with a history of CAD s/p multiple PCI who presented with an anterior STEMI and was given lytics. Cath showed MV CAD without culprit vessel. He is now 4 Days Post-OpCABGx3 and MARIALUISA clipping. PMH of chronic HFrEF s/p INSTALLER TECHNICIAN/ICD, IDDM2, HTN, HLD, remote melanoma, active smoker. 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 Restarting jardiance #Active smoker Duoneb prn Dispo: CVCC, Full code, tx to floor Discussed with attending surgeon on rounds this morning. KEILA HANLEY, JOSÉ ANTONIO 06/18/2024 Between the hours of 1800 - 0600 and on the weekends please page [phone]. * Alejandra Baumann APRN - 06/17/2024 3:29 [...] MARIALUISA clipping. PMH of chronic HFrEF s/p INSTALLER TECHNICIAN/ICD, IDDM2, HTN, HLD, remote melanoma, active smoker. [...] based on ISF 20 Alejandra Baumann APRN [facility] Endocrinology Diabetes Management Pager [phone] Weekends please page [phone] 35 minutes were spent over the course [...] MARIALUISA clipping. PMH of chronic HFrEF s/p INSTALLER TECHNICIAN/ICD, IDDM2, HTN, HLD, remote melanoma, active smoker. [...] 0600 and on the weekends please page [phone]. * Raymond Carlton MD - 06/16/2024 1:11 PM EST CARDIAC CRITICAL CARE ATTENDING STAFF PROGRESS NOTE Patient seen and examined. George Mehta is a 69 y.o. male with: Active Hospital Problems Diagnosis STEMI (ST elevation myocardial infarction) Cardiac resynchronization therapy defibrillator (INSTALLER TECHNICIAN-D) - Medtronic Amplia Cardiomyopathy, ischemic Acute on chronic heart failure with reduced ejection fraction (HFrEF, <= 40%) Coronary artery disease involving [place] coronary artery of [place] heart without angina pectoris Type 2 diabetes [...] unless consulted in the interim. RICHA Simmons Buyer Renter * Octaviano Horvath PA - 06/16/2024 8:07 AM EST Cardiac Surgery Progress Note George Mehta is a 69 y.o. male with a history of CAD s/p multiple PCI who presented with an anterior STEMI and was given lytics. Cath showed MV CAD without culprit vessel. He is now 2 Days Post-OpCABGx3 and MARIALUISA clipping. PMH of chronic HFrEF s/p INSTALLER TECHNICIAN/ICD, IDDM2, HTN, HLD, remote melanoma, active smoker. [...] 0600 and on the weekends please page [phone]. * Jono Fernandez PT - 06/15/2024 4:09 PM EST Physical Therapy Evaluation Patient profile: George Mehta is a 69 y.o. male with a history of CAD s/p multiple PCI who presented with an anterior STEMI and was given lytics. Cath showed MV CAD without culprit vessel. He is now 1 Day Post-Op CABGx3 and MARIALUISA clipping. PMH of chronic HFrEF s/p INSTALLER TECHNICIAN/ICD, IDDM2, HTN, HLD, remote melanoma, active smoker. 24h Events: From OR on Dobutamine IABP removed Bedrest ended ~2100, sedation weaned Extubated ~0200 Dobutamine weaned to 1 this morning, CI 2.6, shut off and repeat CI 2.4 Social History: Pt lives with his in a 1 level apartment with no steps to enter. 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 He drives. He sleeps [...] outlined inthis evaluation. JONO FERNANDEZ, PT Pager: [phone] Physical Therapy Inpatient Rehabilitation Department Time IN / OUT: 4234-0066 Total Time: 33 (eval) minutes * Alejandra Baumann APRN - 06/15/2024 11:39 AM EST Follow Up Diabetes Consult Patient Interview Blood glucose values and insulin use reviewed. Pt remains on an insulin drip today following [id number] MARIALUISA clipping. George continues to complain of [...] MARIALUISA clipping. PMH of chronic HFrEF s/p INSTALLER TECHNICIAN/ICD, IDDM2, HTN, HLD, remote melanoma, active smoker. [...] based on ISF 20 Alejandra Baumann APRN [facility] Endocrinology Diabetes Management Pager [phone] Weekends please page [phone] 50 minutes were spent over the course [...] elevation myocardial infarction) Cardiac resynchronization therapy defibrillator (INSTALLER TECHNICIAN-D) - Medtronic Amplia Cardiomyopathy, ischemic Acute on chronic heart failure with reduced ejection fraction (HFrEF, <= 40%) Coronary artery disease involving [place] coronary artery of wy[place] heart without angina pectoris Type 2 diabetes [...] with h/o DM, CAD with prior PCI, INSTALLER TECHNICIAN-D who presented with crushing chest pain, found [...] MARIALUISA clipping. PMH of chronic HFrEF s/p INSTALLER TECHNICIAN/ICD, IDDM2, HTN, HLD, remote melanoma, active smoker. [...] sternotomy dressing CDI, saphenectomy dressing CDi Tubes/Lines/Drains: Melcroft, RIJ, A-line, Mediastinal marcos and bilateral pleural [...] 0600 and on the weekends please page [phone]. * Yoli Donaldson MACHINE MOLDER - 06/15/2024 5:35 AM EST AMV Protocol: [...] with h/o DM, CAD with prior PCI, INSTALLER TECHNICIAN-D who presented with crushing chest pain, found [...] with h/o DM, CAD with prior PCI, INSTALLER TECHNICIAN-D who presented with crushing chest pain, found [...] 0600 and on the weekends please page [phone]. * Chloé Cortez - 06/14/2024 9:36 AM [...] unless consulted in the interim. Chloé Cortez Coordinate Measuring Equipment Operator * Jim Benites MD - 06/13/2024 [...] - Mildly dilated left ventricle size with ryvlxoyc-py-bvlclren decreased LV systolic function. LV ejection fraction [...] ACS/crushing chest pain, likely due to lateral [place], found to have surgical CAD with viability [...] (abstinent since admission), ASCVD with multiple prior [place] and PCIs, ICM/HFrEF LVEF 30% (all territories [...] elevation myocardial infarction) Cardiac resynchronization therapy defibrillator (INSTALLER TECHNICIAN-D) - Medtronic Amplia Cardiomyopathy, ischemic Acute on chronic heart failure with reduced ejection fraction (HFrEF, <= 40%) Coronary artery disease involving wy[place] coronary artery of wy[place] heart without angina pectoris Type 2 diabetes [...] PCP: Mauro Berumen MD PCP phone number: [phone] Date of Admission: 06/02/2024 ( Hospital Day 10 days ) Attending:Ethel Carrillo MD ID: 69 y.o. male with a h/o DM type 2, HTN, HLD, current smoker (2-3 cigarettes/day), HFrEF with anICD for low EF (~30%), and CAD with prior [place] x3 with JENNA placed in [place], [facility], [facility], presented to [facility] with 1 hour of retrosternal CP (05/13) while watching TV, found to have STEMI. Active Problems: Active Hospital Problems Diagnosis STEMI (ST elevation myocardial infarction) Cardiac resynchronization therapy defibrillator (INSTALLER TECHNICIAN-D) - Medtronic Amplia Cardiomyopathy, ischemic Acute on chronic heart failure with reduced ejection fraction (HFrEF, <= 40%) Coronary artery disease involving [place] coronary artery of wy[place] heart without angina pectoris Type 2 diabetes [...] in the last 7068 hours. Invalid input(s): [id number] Recent Labs 06/12/24 0425 06/11/24 2356 06/11/24 2025 06/11/24 1624 06/11/24 1108 06/11/24 0748 06/11/24 0357 06/11/24 0050 06/10/24 1922 06/10/24 1735 06/10/24 1125 06/10/24 0746 POCGLU 132 135 210* 81 233* 184 132 144 236* 123 216* 206* Heme No results for input(s): LDH, HAPTOGLOBIN, URICACID in the last 168 hours. ABG (Arterial Blood Gas) No results found for: PHART, PO2ART, PRD2NTM, [id number] Microbiology: Microbiology Results (Last 30 days) No results found for the last 720 hours. Imaging: Results for orders placed or performed during the hospital encounter of 06/02/24 XR Chest One View (Exam End: 06/03/2024 2:41 AM) Result Value WORKSTATION ID [id number] Impression No radiographically evident acute cardiopulmonary process. Thank you for letting us participate in the care of this patient. If you are a health care provider and have any questions regarding this report, please contact the number below. For patients who have questions please contact the health careers counsellor that requested your imaging first. Electronically signed by: Corazon Mauro MD, [facility] ([phone]), at 06/03/2024 3:06 AM MRI Cardiac Morphology Function wwo Contrast (Exam End: 06/07/2024 1:10 PM) Result Value WORKSTATION ID [id number] Impression - Findings consistent with an ischemic [...] - Mildly dilated left ventricle size with sbjrfsxp-qt-ajdizoos decreased LV systolic function. LV ejection fraction [...] who have questions please contact the health careers counsellor that requested your imaging first. Electronically signed by: Kriss Alonzo MD, [facility] ([phone]), at 06/07/2024 2:[address] Chest wo Contrast (Generic) (Exam End: 06/03/2024 4:33 PM) Result Value WORKSTATION ID [id number] Impression Cardiomegaly. Biventricular ICD leads in place. Thank you for letting us participate in the care of this patient. If you are a health care provider and have any questions regarding this report, please contact the number below. For patients who have questions please contact the health careers counsellor that requested your imaging first. Electronically signed by: Stuart Aponte MD, [facility] ([phone]), at 06/03/2024 4:47 PM XR Chest PA & Lateral (Generic) (Exam End: 06/07/2024 7:03 AM) Result Value WORKSTATION ID [id number] Impression Biventricular ICD leads intact and in [...] who have questions please contact the health careers counsellor that requested your imaging first. Electronically signed by: Stuart Aponte MD, [facility] ([phone]), at 06/07/2024 10:45 AM TTE: Limited echo performed by fellow installation engineer to assess LV function. Left ventricle is [...] Infusions: heparin (porcine) infusion 1,400 Units/hr (06/12/24 4158) PRN Meds:.insulin lispro, glucose 40% oral geL [...] ischemic cardiomyopathy with HFrEF (~30% EF), prior [place] with stents, DM type 2, HTN, HLD, active smoker, presented with anterior STEMI. Angiography revealed severe multivessel CAD with extensive calcification and YUE 3 flow in all vessels, without a clear culprit lesion. Currently pain-free after TNK, Plavix, ASA, and heparin, with mildly elevated LVEDP at 40 mmHg and mild volume overload. 06/12/24: Patient stable, asymptomatic. Plan to go to clinical laboratory service teacher for balloon pump tomorrow, then willgo to [...] CODE Dain Colón MD Cardiology, M1-S2, Pager #[phone] 06/12/24 Associated attestation - Ethel Carrillo MD [...] (abstinent since admission), ASCVD with multiple prior [place] and PCIs, ICM/HFrEF LVEF 30% (all territories [...] of two midnights or is on the [facility] inpatient only procedure list (status C) due to: acute myocardial infarction requiring titration of IV medication and fluid monitoring and decompensated congestive heart failure requiring IV medication and fluid monitoring Ethel Carrillo MD Cardiovascular Medicine Personal Pager [phone] 06/12/2024 9:12 PM * Alejandra Baumann, POST COMMANDER - 06/11/2024 4:21 PM EST Images from [...] too aggressive, suggest ICR 1:6 (rule of [id number] = 6.25). George is up and walking [...] ischemic cardiomyopathy with HFrEF (~30% EF), prior [place] with stents, DM type 2, HTN, HLD, [...] ac, metformin 1000mg BID Alejandra Baumann APRN [facility] Endocrinology Diabetes Management Pager [phone] Weekends please page [phone] 35 minutes were spent over the course [...] PCP: Mauro Berumen MD PCP phone number: [phone] Date of Admission: 06/02/2024 ( Hospital Day 9 days ) Attending:Melida Valdes MD ID: 69 y.o. male with a h/o DM type 2, HTN, HLD, current smoker (2-3 cigarettes/day), HFrEF with anICD for low EF (~30%), and CAD with prior [place] x3 with JENNA placed in [place], Melanoma, PAD, presented to [facility] with 1 hour of retrosternal CP (05/13) while watching TV, found to have STEMI. Active Problems: Active Hospital Problems Diagnosis STEMI (ST elevation myocardial infarction) Cardiac resynchronization therapy defibrillator (INSTALLER TECHNICIAN-D) - Medtronic Amplia Cardiomyopathy, ischemic Acute on chronic heart failure with reduced ejection fraction (HFrEF, <= 40%) Coronary artery disease involving [place] coronary artery of [place] heart without angina pectoris Type 2 diabetes [...] in the last 7068 hours. Invalid input(s): [id number] Recent Labs 06/11/24 0357 06/11/24 0050 06/10/24 1922 06/10/24 1735 06/10/24 1125 06/10/24 0746 06/10/24 0423 06/10/24 0005 06/09/24 2036 06/09/24 1727 06/09/24 1152 06/09/24 0810 POCGLU 132 144 236* 123 216* 206* 154 125 197 174 211* 209* Heme No results for input(s): LDH, HAPTOGLOBIN, URICACID in the last 168 hours. ABG (Arterial Blood Gas) No results found for: PHART, PO2ART, NGR4KGK, SHL5SQY Microbiology: Microbiology Results (Last 30 days) No results found for the last 720 hours. Imaging: Results for orders placed or performed during the hospital encounter of 06/02/24 XR Chest One View (Exam End: 06/03/2024 2:41 AM) Result Value WORKSTATION ID [id number] Impression No radiographically evident acute cardiopulmonary process. Thank you for letting us participate in the care of this patient. If you are a health care provider and have any questions regarding this report, please contact the number below. For patients who have questions please contact the health careers counsellor that requested your imaging first. Electronically signed by: Corazon Mauro MD, [facility] ([phone]), at 06/03/2024 3:06 AM MRI Cardiac Morphology Function wwo Contrast (Exam End: 06/07/2024 1:10 PM) Result Value WORKSTATION ID [id number] Impression - Findings consistent with an ischemic [...] - Mildly dilated left ventricle size with crpdouec-th-cehrtsvd decreased LV systolic function. LV ejection fraction [...] who have questions please contact the health careers counsellor that requested your imaging first. Electronically signed by: Kriss Alonzo MD, [facility] ([phone]), at 06/07/2024 2:[address] Chest wo Contrast (Generic) (Exam End: 06/03/2024 4:33 PM) Result Value WORKSTATION ID [id number] Impression Cardiomegaly. Biventricular ICD leads in place. Thank you for letting us participate in the care of this patient. If you are a health care provider and have any questions regarding this report, please contact the number below. For patients who have questions please contact the health careers counsellor that requested your imaging first. Electronically signed by: Stuart Aponte MD, [facility] ([phone]), at 06/03/2024 4:47 PM XR Chest PA & Lateral (Generic) (Exam End: 06/07/2024 7:03 AM) Result Value WORKSTATION ID [id number] Impression Biventricular ICD leads intact and in [...] who have questions please contact the health careers counsellor that requested your imaging first. Electronically signed by: Stuart Aponte MD, [facility] ([phone]), at 06/07/2024 10:45 AM TTE: Limited echo performed by fellow installation engineer to assess LV function. Left ventricle is [...] Infusions: heparin (porcine) infusion 1,400 Units/hr (06/10/24 3091) PRN Meds:.insulin lispro, glucose 40% oral geL [...] ischemic cardiomyopathy with HFrEF (~30% EF), prior [place] with stents, DM type 2, HTN, HLD, [...] CODE Dain Colón MD Cardiology, M1-S2, Pager #[phone] 06/11/24 Associated attestation - Ethel Carrillo MD [...] (abstinent since admission), ASCVD with multiple prior [place] and PCIs, ICM/HFrEF LVEF 30% (all territories [...] Ethel Carrillo MD Cardiovascular Medicine Personal Pager [phone] 06/11/2024 9:35 PM * Chana Bellecole Lyn - 06/10/2024 12:39 PM EST Nutrition Services Note George Mehta is a 69 y.o. male Reason for intervention: hospital day 9 Nutrition Plan: Continue diet order: 60/60/75 CHO Level 2 Encourage good PO Lasix and Insulin noted Monitor weight Patient scheduled for a hospital day 9 nutrition evaluation. Housekeeping Cleaner attempted to meet with pt at bedside [...] unless consulted in the interim. Hilary Belle Buyer Renter * Mariia Montero RN - 06/10/2024 12:23 PM EST I have met with the patient to: discuss discharge planning needs. provide the [facility], Office of Care Management letter from the Email Marketing Coordinator pertaining to rehab referrals. provide a letter describing our affiliations within the [facility] and educate about their right to choose where referrals are sent. provide a list of Home Health Agencies / Durable Medical Equipment vendors which serve their preferred geographic area. provided patient with CMS Star Quality Rating handout. They have requested referrals to: [facility] [address] [place] [id number] RN / PT Anticipated d/c date: 06/20/24 Note routed to a Hopper Feeder who will communicate referrals to facilities and provide any required information. * Dain Colón MD - 06/10/2024 7:17 AM EST Images from the original note were not included. . Cardiology Progress Note Patient info: Name: George Mehta : 1955 PCP: Mauro Berumen MD PCP phone number: [phone] Date of Admission: 06/02/2024 ( Hospital Day 8 days ) Attending:Melida Valdes MD ID: 69 y.o. male with a h/o DM type 2, HTN, HLD, current smoker (2-3 cigarettes/day), HFrEF with anICD for low EF (~30%), and CAD with prior [place] x3 with JENNA placed in [place], Melanoma, PAD, presented to [facility] with 1 hour of retrosternal CP (05/13) while watching TV, found to have STEMI. Active Problems: Active Hospital Problems Diagnosis STEMI (ST elevation myocardial infarction) Cardiac resynchronization therapy defibrillator (INSTALLER TECHNICIAN-D) - Medtronic Amplia Cardiomyopathy, ischemic Acute on chronic heart failure with reduced ejection fraction (HFrEF, <= 40%) Coronary artery disease involving [place] coronary artery of [place] heart without angina pectoris Type 2 diabetes [...] in the last 7068 hours. Invalid input(s): [id number] Recent Labs 06/10/24 0423 06/10/24 0005 06/09/24 2036 06/09/24 1727 06/09/24 1152 06/09/24 0810 06/09/24 0440 06/09/24 0034 06/08/24 2027 06/08/24 1616 06/08/24 1235 06/08/24 0810 POCGLU 154 125 197 174 211* 209* 131 186 176 159 226* 190 Heme No results for input(s): LDH, HAPTOGLOBIN, URICACID in the last 168 hours. ABG (Arterial Blood Gas) No results found for: PHART, PO2ART, YZP2GNM, WXR9WZT Microbiology: Microbiology Results (Last 30 days) No results found for the last 720 hours. Imaging: Results for orders placed or performed during the hospital encounter of 06/02/24 XR Chest One View (Exam End: 06/03/2024 2:41 AM) Result Value WORKSTATION ID [id number] Impression No radiographically evident acute cardiopulmonary process. Thank you for letting us participate in the care of this patient. If you are a health care provider and have any questions regarding this report, please contact the number below. For patients who have questions please contact the health careers counsellor that requested your imaging first. Electronically signed by: Corazon Mauro MD, [facility] ([phone]), at 06/03/2024 3:06 AM MRI Cardiac Morphology Function wwo Contrast (Exam End: 06/07/2024 1:10 PM) Result Value WORKSTATION ID [id number] Impression - Findings consistent with an ischemic [...] - Mildly dilated left ventricle size with yvtsbsum-kr-ccbzklbl decreased LV systolic function. LV ejection fraction [...] who have questions please contact the health careers counsellor that requested your imaging first. Electronically signed by: Kriss Alonzo MD, [facility] ([phone]), at 06/07/2024 2:[address] Chest wo Contrast (Generic) (Exam End: 06/03/2024 4:33 PM) Result Value WORKSTATION ID [id number] Impression Cardiomegaly. Biventricular ICD leads in place. Thank you for letting us participate in the care of this patient. If you are a health care provider and have any questions regarding this report, please contact the number below. For patients who have questions please contact the health careers counsellor that requested your imaging first. Electronically signed by: Stuart Aponte MD, [facility] ([phone]), at 06/03/2024 4:47 PM XR Chest PA & Lateral (Generic) (Exam End: 06/07/2024 7:03 AM) Result Value WORKSTATION ID [id number] Impression Biventricular ICD leads intact and in [...] who have questions please contact the health careers counsellor that requested your imaging first. Electronically signed by: Stuart Aponte MD, [facility] ([phone]), at 06/07/2024 10:45 AM TTE: Limited echo performed by fellow installation engineer to assess LV function. Left ventricle is [...] Daily insulin lispro 1-6 Units Subcutaneous Q4H AJNKI furosemide 40 mg Intravenous Daily sodium chloride [...] ischemic cardiomyopathy with HFrEF (~30% EF), prior [place] with stents, DM type 2, HTN, HLD, [...] CODE Dain Colón MD Cardiology, M1-S2, Pager #[phone] 06/10/24 Associated attestation - Melida Valdes MD [...] a lytic and brought directly to the Nut Sorter Operator. Cardiac catheterization demonstrated multivessel disease with severe [...] who is agreeable Melida Valdes MD Staff Environmental Health Technician * Cherelle Fregoso APRN - 06/09/2024 8:59 [...] ischemic cardiomyopathy with HFrEF (~30% EF), prior [place] with stents, DM type 2, HTN, HLD, [...] PCP: Mauro Berumen MD PCP phone number: [phone] Date of Admission: 06/02/2024 ( Hospital Day 7 days ) Attending:Melida Valdes MD ID: 69 y.o. male with a h/o DM type 2, HTN, HLD, current smoker (2-3 cigarettes/day), HFrEF with anICD for low EF (~30%), and CAD with prior [place] x3 with JENNA placed in [place], Melanoma, PAD, presented to [facility] with 1 hour of retrosternal CP (05/13) while watching TV, found to have STEMI. Active Problems: Active Hospital Problems Diagnosis STEMI (ST elevation myocardial infarction) Acute on chronic heart failure with reduced ejection fraction (HFrEF, <= 40%) Coronary artery disease involving [place] coronary artery of [place] heart without angina pectoris Type 2 diabetes [...] in the last 7068 hours. Invalid input(s): [id number] Recent Labs 06/09/24 0440 06/09/24 0034 06/08/24 2027 06/08/24 1616 06/08/24 1235 06/08/24 0810 06/08/24 0409 06/07/24 2357 06/07/24 2005 06/07/24 1631 06/07/24 1105 06/07/24 1103 POCGLU 131 186 176 159 226* 190 151 188 118 174 221* 250* Heme No results for input(s): LDH, HAPTOGLOBIN, URICACID in the last 168 hours. ABG (Arterial Blood Gas) No results found for: PHART, PO2ART, WTD3IMD, VPE2MCJ Microbiology: Microbiology Results (Last 30 days) No results found for the last 720 hours. Imaging: Results for orders placed or performed during the hospital encounter of 06/02/24 XR Chest One View (Exam End: 06/03/2024 2:41 AM) Result Value WORKSTATION ID [id number] Impression No radiographically evident acute cardiopulmonary process. Thank you for letting us participate in the care of this patient. If you are a health care provider and have any questions regarding this report, please contact the number below. For patients who have questions please contact the health careers counsellor that requested your imaging first. Electronically signed by: Corazon Mauro MD, [facility] ([phone]), at 06/03/2024 3:06 AM MRI Cardiac Morphology Function wwo Contrast (Exam End: 06/07/2024 1:10 PM) Result Value WORKSTATION ID [id number] Impression - Findings consistent with an ischemic [...] - Mildly dilated left ventricle size with dofnavny-cz-xvidbrdj decreased LV systolic function. LV ejection fraction [...] who have questions please contact the health careers counsellor that requested your imaging first. Electronically signed by: Kriss Alonzo MD, [facility] ([phone]), at 06/07/2024 2:[address] Chest wo Contrast (Generic) (Exam End: 06/03/2024 4:33 PM) Result Value WORKSTATION ID [id number] Impression Cardiomegaly. Biventricular ICD leads in place. Thank you for letting us participate in the care of this patient. If you are a health care provider and have any questions regarding this report, please contact the number below. For patients who have questions please contact the health careers counsellor that requested your imaging first. Electronically signed by: Stuart Aponte MD, [facility] ([phone]), at 06/03/2024 4:47 PM XR Chest PA & Lateral (Generic) (Exam End: 06/07/2024 7:03 AM) Result Value WORKSTATION ID [id number] Impression Biventricular ICD leads intact and in [...] who have questions please contact the health careers counsellor that requested your imaging first. Electronically signed [facility]: [facility] ([phone]), at 06/07/2024 10:45 AM TTE: Limited echo performed by fellow installation engineer to assess LV function. Left ventricle is [...] Infusions: heparin (porcine) infusion 1,400 Units/hr (06/08/24 0280) PRN Meds:.glucose 40% oral geL OR dextrose [...] ischemic cardiomyopathy with HFrEF (~30% EF), prior [place] with stents, DM type 2, HTN, HLD, [...] CODE Dain Colón MD Cardiology, M1-S2, Pager #[phone] 06/09/24 Associated attestation - Melida Valdes MD [...] a lytic and brought directly to the Nut Sorter Operator. Cardiac catheterization demonstrated multivessel disease with severe [...] insertion low EF. Melida Valdes MD Staff Environmental Health Technician * Alejandra Baumann, POST COMMANDER - 06/08/2024 4:10 PM EST Images from [...] ischemic cardiomyopathy with HFrEF (~30% EF), prior [place] with stents, DM type 2, HTN, HLD, [...] to optimize glucose control Alejandra Baumann APRN [facility] Endocrinology Diabetes Management Pager [phone] Weekends please page [phone] 35 minutes were spent over the course [...] PCP: Mauro Berumen MD PCP phone number: [phone] Date of Admission: 06/02/2024 ( Hospital Day 6 days ) Attending:Melida Valdes MD ID: 69 y.o. male with a h/o DM type 2, HTN, HLD, current smoker (2-3 cigarettes/day), HFrEF with anICD for low EF (~30%), and CAD with prior [place] x3 with JENNA placed in [place], Melanoma, PAD, presented to [facility] with 1 hour of retrosternal CP (05/13) while watching TV, found to have STEMI. Active Problems: Active Hospital Problems Diagnosis STEMI (ST elevation myocardial infarction) Acute on chronic heart failure with reduced ejection fraction (HFrEF, <= 40%) Coronary artery disease involving [place] coronary artery of [place] heart without angina pectoris Type 2 diabetes [...] in the last 7068 hours. Invalid input(s): [id number] Recent Labs 06/08/24 0409 06/07/24 2357 06/07/24200406/07/24 1631 06/07/24 1105 06/07/24 1103 06/07/24 0745 06/07/24 0425 06/07/24 0008 06/06/24 2018 06/06/24 1539 06/06/24 1339 POCGLU 151 188 118 174 221* 250* 175 127 182 143 147 317* Heme No results for input(s): LDH, HAPTOGLOBIN, URICACID in the last 168 hours. ABG (Arterial Blood Gas) No results found for: PHART, PO2ART, DPJ0ZLX, DOG7ROQ Microbiology: Microbiology Results (Last 30 days) No results found for the last 720 hours. Imaging: Results for orders placed or performed during the hospital encounter of 06/02/24 XR Chest One View (Exam End: 06/03/2024 2:41 AM) Result Value WORKSTATION ID [id number] Impression No radiographically evident acute cardiopulmonary process. Thank you for letting us participate in the care of this patient. If you are a health care provider and have any questions regarding this report, please contact the number below. For patients who have questions please contact the health careers counsellor that requested your imaging first. Electronically signed by: Corazon Mauro MD, [facility] ([phone]), at 06/03/2024 3:06 AM MRI Cardiac Morphology Function wwo Contrast (Exam End: 06/07/2024 1:10 PM) Result Value WORKSTATION ID [id number] Impression - Findings consistent with an ischemic [...] - Mildly dilated left ventricle size with vbrcisaf-tb-czetjirf decreased LV systolic function. LV ejection fraction [...] who have questions please contact the health careers counsellor that requested your imaging first. Electronically signed by: Kriss Alonzo MD, [facility] ([phone]), at 06/07/2024 2:[address] Chest wo Contrast (Generic) (Exam End: 06/03/2024 4:33 PM) Result Value WORKSTATION ID [id number] Impression Cardiomegaly. Biventricular ICD leads in place. Thank you for letting us participate in the care of this patient. If you are a health care provider and have any questions regarding this report, please contact the number below. For patients who have questions please contact the health careers counsellor that requested your imaging first. Electronically signed by: Stuart Aponte MD, [facility] ([phone]), at 06/03/2024 4:47 PM XR Chest PA & Lateral (Generic) (Exam End: 06/07/2024 7:03 AM) Result Value WORKSTATION ID [id number] Impression Biventricular ICD leads intact and in [...] who have questions please contact the health careers counsellor that requested your imaging first. Electronically signed by: Stuart Aponte MD, [facility] ([phone]), at 06/07/2024 10:45 AM TTE: Limited echo performed by fellow installation engineer to assess LV function. Left ventricle is [...] Infusions: heparin (porcine) infusion 1,400 Units/hr (06/08/24 4040) PRN Meds:.insulin lispro, potassium chloride ER OR [...] ischemic cardiomyopathy with HFrEF (~30% EF), prior [place] with stents, DM type 2, HTN, HLD, [...] CODE Dain Colón MD Cardiology, M1-S2, Pager #[phone] 06/08/24 Associated attestation - Melida Valdes MD [...] a lytic and brought directly to the Nut Sorter Operator. Cardiac catheterization demonstrated multivessel disease with severe [...] Otherwise clinically stable Melida Valdes MD Staff Environmental Health Technician * Ross Manuel PA - 06/07/2024 12:00 PM EST Cardiac Electrophysiology CIED Interrogation/Programming Note Asked by MRI staff to evaluate and program Medtronic INSTALLER TECHNICIAN-D to allow for MR imaging. Patient Active Problem List Diagnosis ','STEMI (ST elevation myocardial infarction) Acute on chronic heart failure with reduced ejection fraction (HFrEF, <= 40%) Coronary artery disease involving [place] coronary artery of [place] heart without angina pectoris Type 2 diabetes mellitus Device Data: Medtronic Amplia MRI Quad INSTALLER TECHNICIAN-D YIGQ4DG #[id number] 06/16/2019 RA Medtronic 4076 CapSureFix Novus [id number] 06/16/2019 RV Medtronic 6935M [id number] 06/16/2019 LV Medtronic 4298 Attain Performa MRI [id number] 06/16/2019 DDD @ 50/130/130 Adaptive Bi-V and LV VF >188bpm ATP, 35j x6 FVT >188-222bpm burst 2, 35jx5 VT Battery longevity: 2.5yrs; charge time 4s P wave: 2.3mV R wave: >20.0mV Atrial impedance: 458 ohms RV impedance: 646 ohms LV impedance: 722 ohms Atrial threshold: 0.5V @ 0.4ms RV threshold: LV threshold: 1.75V @ 0.4ms AP 0.2% SOFTWARE PROJECT ENGINEER 97.7% AT/AF 0% Impression and Plan: 1. Interrogated device to determine suitability for MRI 2. Programmed to MRI safe mode - VOO @ 70 3. Scan performed 4. Programming restored to baseline settings 5. Reinterrogated to verify appropriate function and settings 6. Device follow up as previously scheduled Provider: HENOK Meyer EP Consult attending physician: Libby Barton MD EP Consult positional pager #[phone](EPMD) EP Device interrogation positional pager # [phone] * Dain Colón MD - 06/07/2024 7:09 AM EST Images from the original note were not included. . Cardiology Progress Note Patient info: Name: George Mehta : 1955 PCP: Mauro Berumen MD PCP phone number: [phone] Date of Admission: 06/02/2024 ( Hospital Day 5 days ) Attending:Melida Valdes MD ID: 69 y.o. male with a h/o DM type 2, HTN, HLD, current smoker (2-3 cigarettes/day), HFrEF with anICD for low EF (~30%), and CAD with prior [place] x3 with JENNA placed in [place], Melanoma, PAD, presented to [facility] with 1 hour of retrosternal CP (05/13) while watching TV, found to have STEMI. Active Problems: Active Hospital Problems Diagnosis STEMI (ST elevation myocardial infarction) Acute on chronic heart failure with reduced ejection fraction (HFrEF, <= 40%) Coronary artery disease involving wy[place] coronary artery of wy[place]otte heart without angina pectoris Type 2 diabetes [...] in the last 7068 hours. Invalid input(s): [id number] Recent Labs 06/07/24 0425 06/07/24 0008 06/06/24 2018 06/06/24 1539 06/06/24 1339 06/06/24 1134 06/06/24 0757 06/06/24 0653 06/05/24 2231 06/05/24 1622 06/05/24 1134 06/05/24 0727 POCGLU 127 182 143 147 317* 264* 195 187 238* 205* 211* 166 Heme No results for input(s): LDH, HAPTOGLOBIN, URICACID in the last 168 hours. ABG (Arterial Blood Gas) No results found for: PHART, PO2ART, KDL3MNN, XVM7QDC Microbiology: Microbiology Results (Last 30 days) No results found for the last 720 hours. Imaging: Results for orders placed or performed during the hospital encounter of 06/02/24 XR Chest One View (Exam End: 06/03/2024 2:41 AM) Result Value WORKSTATION ID [id number] Impression No radiographically evident acute cardiopulmonary process. Thank you for letting us participate in the care of this patient. If you are a health care provider and have any questions regarding this report, please contact the number below. For patients who have questions please contact the health careers counsellor that requested your imaging first. Electronically signed by: Corazon Mauro MD, [facility] ([phone]), at 06/03/2024 3:[address] Chest wo Contrast (Generic) (Exam End: 06/03/2024 4:33 PM) Result Value WORKSTATION ID [id number] Impression Cardiomegaly. Biventricular ICD leads in place. Thank you for letting us participate in the care of this patient. If you are a health care provider and have any questions regarding this report, please contact the number below. For patients who have questions please contact the health careers counsellor that requested your imaging first. Electronically signed by: Stuart Aponte MD, [facility] ([phone]), at 06/03/2024 4:47 PM TTE: Limited echo performed by fellow installation engineer to assess LV function. Left ventricle is [...] Infusions: heparin (porcine) infusion 1,400 Units/hr (06/06/24 3641) PRN Meds:.insulin lispro, potassium chloride ER OR [...] ischemic cardiomyopathy with HFrEF (~30% EF), prior [place] with stents, DM type 2, HTN, HLD, [...] Dain Colón MD (PGY-1) Cardiology, M1-S2, Pager #[phone] 06/07/24 Associated attestation - Melida Valdes MD [...] a lytic and brought directly to the Nut Sorter Operator. Cardiac catheterization demonstrated multivessel disease with severe [...] for further guidance. Melida Valdes MD Staff Environmental Health Technician * Dain Colón MD - 06/06/2024 7:17 AM EST Images from the original note were not included. . Cardiology Progress Note Patient info: Name: George Mehta : 1955 PCP: Mauro Berumen MD PCP phone number: [phone] Date of Admission: 06/02/2024 ( Hospital Day 4 days ) Attending:Melida Valdes MD ID: 69 y.o. male with a h/o DM type 2, HTN, HLD, current smoker (2-3 cigarettes/day), HFrEF with anICD for low EF (~30%), and CAD with prior [place] x3 with JENNA placed in [place], Melanoma, PAD, presented to [facility] with 1 hour of retrosternal CP (05/13) while watching TV, found to have STEMI. Active Problems: Active Hospital Problems Diagnosis STEMI (ST elevation myocardial infarction) Acute on chronic heart failure with reduced ejection fraction (HFrEF, <= 40%) Coronary artery disease involving wy[place] coronary artery of wy[place] heart without angina pectoris Type 2 diabetes [...] in the last 7068 hours. Invalid input(s): [id number] Recent Labs 06/06/24 0653 06/05/24 2231 06/05/24 1622 06/05/24 1134 06/05/24 0727 06/04/24 1943 06/04/24 1526 06/04/24 1109 06/04/24 0711 06/03/24 2005 06/03/24 1748 06/03/24 1114 POCGLU 187 238* 205* 211* 166 175 154 188 182 136 191 166 Heme No results for input(s): LDH, HAPTOGLOBIN, URICACID in the last 168 hours. ABG (Arterial Blood Gas) No results found for: PHART, PO2ART, NHM9NTI, CZP1KTC Microbiology: Microbiology Results (Last 30 days) No results found for the last 720 hours. Imaging: Results for orders placed or performed during the hospital encounter of 06/02/24 XR Chest One View (Exam End: 06/03/2024 2:41 AM) Result Value WORKSTATION ID [id number] Impression No radiographically evident acute cardiopulmonary process. Thank you for letting us participate in the care of this patient. If you are a health care provider and have any questions regarding this report, please contact the number below. For patients who have questions please contact the health careers counsellor that requested your imaging first. Electronically signed by: Corazon Mauro MD, [facility] ([phone]), at 06/03/2024 3:[address] Chest wo Contrast (Generic) (Exam End: 06/03/2024 4:33 PM) Result Value WORKSTATION ID [id number] Impression Cardiomegaly. Biventricular ICD leads in place. Thank you for letting us participate in the care of this patient. If you are a health care provider and have any questions regarding this report, please contact the number below. For patients who have questions please contact the health careers counsellor that requested your imaging first. Electronically signed by: Stuart Aponte MD, [facility] ([phone]), at 06/03/2024 4:47 PM TTE: Limited echo performed by fellow installation engineer to assess LV function. Left ventricle is [...] ischemic cardiomyopathy with HFrEF (~30% EF), prior [place] with stents, DM type 2, HTN, HLD, [...] Dain Colón MD (PGY-1) Cardiology, M1-S2, Pager #[phone] 06/06/24 Associated attestation - Melida Valeds MD - 06/06/2024 5:36 PM EST Cardiology [...] a lytic and brought directly to the Nut Sorter Operator. Cardiac catheterization demonstrated multivessel disease with severe [...] management. Help appreciated Melida Valdes MD Staff Environmental Health Technician * Frederick Dunn MD - 06/05/2024 8:13 AM EDT Images from the original note were not included. . Cardiology Progress Note Patient info: Name: George Mehta : 1955 PCP: Mauro Berumen MD PCP phone number: [phone] Date of Admission: 06/02/2024 ( Hospital Day 3 days ) Attending:Melida Valdes MD ID: 69 y.o. male with a h/o DM type 2, HTN, HLD, current smoker (2-3 cigarettes/day), HFrEF with anICD for low EF (~30%), and CAD with prior [place] x3 with JENNA placed in [place], Melanoma, PAD, presented to [facility] with 1 hour of retrosternal CP [...] in the last 7068 hours. Invalid input(s): [id number] Recent Labs 06/05/24 1134 06/05/24 0727 06/04/24 1943 06/04/24 1526 06/04/24 1109 06/04/24 0711 06/03/24 2005 06/03/24 1748 06/03/24 1114 06/03/24 0754 06/02/24 2331 POCGLU 211* 166 175 154 188 182 136 191 166 195 156 Heme No results for input(s): LDH, HAPTOGLOBIN, URICACID in the last 168 hours. ABG (Arterial Blood Gas) No results found for: PHART, PO2ART, YBD7BFQ, SXA4RWQ Microbiology: Microbiology Results (Last 30 days) No results found for the last 720 hours. Imaging: Results for orders placed or performed during the hospital encounter of 06/02/24 XR Chest One View (Exam End: 06/03/2024 2:41 AM) Result Value WORKSTATION ID [id number] Impression No radiographically evident acute cardiopulmonary process. Thank you for letting us participate in the care of this patient. If you are a health care provider and have any questions regarding this report, please contact the number below. For patients who have questions please contact the health careers counsellor that requested your imaging first. Chest wo Contrast (Generic) (Exam End: 06/03/2024 4:33 PM) Result Value WORKSTATION ID [id number] Impression Cardiomegaly. Biventricular ICD leads in place. Thank you for letting us participate in the care of this patient. If you are a health care provider and have any questions regarding this report, please contact the number below. For patients who have questions please contact the health careers counsellor that requested your imaging first. Electronically signed by: Stuart Aponte MD, [facility] ([phone]), at 06/03/2024 4:47 PM TTE: Limited echo performed by fellow installation engineer to assess LV function. Left ventricle is [...] ischemic cardiomyopathy with HFrEF (~30% EF), prior [place] with stents, DM type 2, HTN, HLD, [...] all the information they need regarding the INSTALLER TECHNICIAN-D.Plan for MRI tomorrow. Starting 40 mg IV [...] a lytic and brought directly to the Nut Sorter Operator. Cardiac catheterization demonstrated multivessel disease with severe [...] maintenance of 40. Melida Valdes MD Staff Environmental Health Technician * Migel Javier RN - 06/05/2024 6:21 AM EDT Implanted device record scanned into: Chart Review-->Media-->External Cardiology-->03/25/2024. Medtronic RotoPopia MRI Quad CRTD [id number] Serial #: [id number] DDD mode A + Bi/V Rates 50-130 Migel Javier RN * Dain Colón MD - 06/04/2024 11:16 AM EDT Implant Records Requested Type: INSTALLER TECHNICIAN-D Air Hole Driller: Medtronic Product: [id number] Amplia MRI MRI compatibility: Compatible for 1.5-3 T Model #: [id number] Placed at: [place], [place] Records requested for MRI: 1. Operative report 2. Implant log I requested that these records be sent to our MRI department, Dain Colón MD 06/04/24 11:58 AM * Dain Colón MD - 06/04/2024 6:57 AM EDT Images from the original note were not included. . Cardiology Progress Note Patient info: Name: George Mehta : 1955 PCP: Mauro Berumen MD PCP phone number: [phone] Date of Admission: 06/02/2024 ( Hospital Day 2 days ) Attending:Delroy Fofana MD ID: 69 y.o. male with a h/o DM type 2, HTN, HLD, current smoker (2-3 cigarettes/day), HFrEF with anICD for low EF (~30%), and CAD with prior [place] x3 with JENNA placed in [place], Melanoma, PAD, presented to [facility] with 1 hour of retrosternal CP [...] in the last 7068 hours. Invalid input(s): [id number] Recent Labs 06/03/24 2005 06/03/24 1748 06/03/24 1114 06/03/24 0754 06/02/24 2331 POCGLU 136 191 166 195 156 Heme No results for input(s): LDH, HAPTOGLOBIN, URICACID in the last 168 hours. ABG (Arterial Blood Gas) No results found for: PHART, PO2ART, XLX9ODO, LUN1YJY Microbiology: Microbiology Results (Last 30 days) No results found for the last 720 hours. Imaging: Results for orders placed or performed during the hospital encounter of 06/02/24 XR Chest One View (Exam End: 06/03/2024 2:41 AM) Result Value WORKSTATION ID [id number] Impression No radiographically evident acute cardiopulmonary process. Thank you for letting us participate in the care of this patient. If you are a health care provider and have any questions regarding this report, please contact the number below. For patients who have questions please contact the health careers counsellor that requested your imaging first. Electronically signed by: Corazon Mauro MD, [facility] ([phone]), at 06/03/2024 3:[address] Chest wo Contrast (Generic) (Exam End: 06/03/2024 4:33 PM) Result Value WORKSTATION ID [id number] Impression Cardiomegaly. Biventricular ICD leads in place. Thank you for letting us participate in the care of this patient. If you are a health care provider and have any questions regarding this report, please contact the number below. For patients who have questions please contact the health careers counsellor that requested your imaging first. Electronically signed by: Stuart Aponte MD, [facility] ([phone]), at 06/03/2024 4:47 PM TTE: Limited echo performed by fellow installation engineer to assess LV function. Left ventricle is [...] ischemic cardiomyopathy with HFrEF (~30% EF), prior [place] with stents, DM type 2, HTN, HLD, [...] -Lasix 40 mg IV given in the clinical laboratory service teacher; assess diuretic response, consider re-dosing -Continue carvedilol; [...] a lytic and brought directly to the Nut Sorter Operator. Cardiac catheterization demonstrated multivessel disease with severe [...] Friday -Diuresis with Jovanni Valdes MD Staff Environmental Health Technician * Fatmata Mcallister PT - 06/03/2024 3:29 [...] vs PCI) Fatmata Mcallister PT, MSPT Pager [phone] Inpatient Physical Therapy * Marlin Gómez MD [...] Marlin Gómez MD Cardiology S2, Pager # [phone] 06/03/2024 * Delroy Fofana MD - 06/03/2024 7:16 AM EDT Images from the original note were not included. . Cardiology Progress Note Patient info: Name: George Mehta : 1955 PCP: Mauro Berumen MD PCP phone number: [phone] Date of Admission: 06/02/2024 ( Hospital Day 1 day ) Attending:Nuha Rojo MD ID: 69 y.o. male with a h/o DM type 2, HTN, HLD, current smoker (2-3 cigarettes/day), HFrEF with anICD for low EF (~30%), and CAD with prior [place] x3 with JENNA placed in [place], Melanoma, PAD, presented to [facility] with 1 hour of retrosternal CP [...] in the last 7068 hours. Invalid input(s): [id number] Recent Labs 06/02/24 2331 POCGLU 156 Heme No results for input(s): LDH, HAPTOGLOBIN, URICACID in the last 168 hours. ABG (Arterial Blood Gas) No results found for: PHART, PO2ART, RQM7MMH, VNL9VBN Microbiology: Microbiology Results (Last 30 days) No results found for the last 720 hours. Imaging: Results for orders placed or performed during the hospital encounter of 06/02/24 XR Chest One View (Exam End: 06/03/2024 2:41 AM) Result Value WORKSTATION ID [id number] Impression No radiographically evident acute cardiopulmonary process. Thank you for letting us participate in the care of this patient. If you are a health care provider and have any questions regarding this report, please contact the number below. For patients who have questions please contact the health careers counsellor that requested your imaging first. Electronically signed by: Corazon Mauro MD, [facility] ([phone]), at 06/03/2024 3:06 AM TTE: Limited echo performed by fellow installation engineer to assess LV function. Left ventricle is [...] ischemic cardiomyopathy with HFrEF (~30% EF), prior [place] with stents, DM type 2, HTN, HLD, [...] -Lasix 40 mg IV given in the clinical laboratory service teacher; assess diuretic response, consider re-dosing -Continue carvedilol; [...] of care per Dain Colón MD (medical detail representative). Please refer to his note above for details. Very pleasant 69 year old male but he is obese, diabetic, and he is a SMOKER with known prior CAD and moderately reduced LVEF (30%). He has a pacer. History of surgical resection of melanoma on his head. The patient was transferred overnight to [facility] as a STEMI. He was treated initially with a lytic (TNK) and brought directly to the clinical laboratory service teacher. The cath demonstrated 3VD with diffuse disease [...] - 06/13/2024 10:58 AM EST ICU Blue (#2580) H&P Patient info: Name: George Mehta : 1955 PCP: Mauro Berumen MD PCP phone number: [phone] Date of Admission: 06/02/2024 ( Hospital Day 11 days ) Attending:Haja Byrnes MD ID: George Mehta is a 69 y.o. male with a h/o DM type 2, HTN, HLD, current smoker (2-3 cigarettes/day), HFrEF with an ICD for low EF (~30%), and CAD with prior [place] x3 with JENNA placed in [place], Melanoma, PAD, presented to [facility] with 1 hour of retrosternal CP (05/13) while watching TV, foundto have STEMI. HPI: Shahnaz Scanlon H&P 06/02 69 y.o. male with a h/o DM type 2, HTN, HLD, current smoker (2-3 cigarettes/day), HFrEF with an ICD for low EF (~30%), and CAD with prior [place] x3 with JENNA placed in [place], Melanoma, PAD, presented to [facility] with 1 hour of retrosternal CP (05/13) while watching TV. CP was non-radiating, not asso ciated with diaphoresis, nausea, or SOB. Denies orthopnea, MARTÍNEZ, palpitations, or LE edema. ECG showed findings consistent with anterior STEMI. He received TNK and was transferred for PCI. Coronary angiography showed a small, non-dominant RCA with tqhq-hk-njwfedpx disease and a dominant,heavily calcified left system with prior stents in the LAD and OM. The LM bifurcates into the LAD and LCX, both heavily calcified. The proximal LCX has a 75% calcified, aneurysmal lesion, and an 80% calcified lesion distally before a large OM2. OM1 is a BISCUITWARE BRUSHER with in-stent restenosis, filling retrograde via collaterals. [...] 40 mg Lasix was administered in the clinical laboratory service teacher. Cardiac surgery was consulted and plan for [...] Blood Gas) No results for input(s): PHART, QDU3XFV, PO2ART, CNL5IHR, LACTATEVEN, COS1LGA, PFRATIOART2 in the last 168 hours. VBG (Venous Blood Gas) Recent Labs 06/10/24 1742 PHVEN 7.34 PO2VEN 24 PHI5QGV 27.4 Mixed Venous Sat No results for input(s): O4KNDX8 in the last 168 hours. Intake/Output Summary [...] in the last 7068 hours. Invalid input(s): RGCXTBBJSTM8N Recent Labs 06/13/24 0741 06/13/24 0325 06/12/24 2353 06/12/24 1932 06/12/24 1541 06/12/24 1121 06/12/24 0800 06/12/24 0425 06/11/24 2356 06/11/24 2025 06/11/24 1624 06/11/24 1108 POCGLU 126 99 141 158 113 207* 169 132 135 210* 81 233* Heme No results for input(s): LDH, HAPTOGLOBIN, URICACID in the last 168 hours. ABG (Arterial Blood Gas) No results for input(s): PHART, CBP9VFP, PO2ART, YMR4LSG, LACTATEVEN, NOZ9QYL, PFRATIOART2 in the last 168 hours. VBG (Venous Blood Gas) Recent Labs 06/10/24 1742 PHVEN 7.34 PO2VEN 24 HDM5IWO 27.4 Mixed Venous Sat No results for input(s): F3SIUN0 in the last 168 hours. Microbiology: Microbiology Results (Last 30 days) No results found for the last 720 hours. Assessment & Plan: George Mehta is a 69 y.o. male with CAD, ischemic cardiomyopathy with HFrEF (~30% EF), prior [place] with stents, DM type 2, HTN, HLD, [...] Plan for CABG 06/14. [facility] #[facility]VD / STEMI: -Holding Plavix; continue ASA [...] (Give Meds) Daily Healthy Menu Choices/Cardiac diet ([facility]-Diet) DVT Prophylaxis: SCD GI Prophylaxis: None Dispo: [...] TUD (abstinent since admission), ASCVD with multipleprior [place] and PCIs, ICM/HFrEF LVEF 30% (all territories [...] is in the chart Rebeca Prado MD It Disaster Recovery Manager PGY6 [phone] * Shahnaz Scanlon MD - [...] low EF (~30%), and CAD with prior [place] x3 with JENNA placed in [place], Melanoma, PAD, presented to [facility] with 1 hour of retrosternal CP (05/13) while watching TV. CP was non-radiating, not assoc iated with diaphoresis, nausea, or SOB. Denies orthopnea, MARTÍNEZ, palpitations, or LE edema. ECG showed findings consistent with anterior STEMI. He received TNK and was transferred for PCI. Coronary angiography showed a small, non-dominant RCA with xwvq-il-rywlzkru disease and a dominant,heavily calcified left system with prior stents in the LAD and OM. The LM bifurcates into the LAD and LCX, both heavily calcified. The proximal LCX has a 75% calcified, aneurysmal lesion, and an 80% calcified lesion distally before a large OM2. OM1 is a BISCUITWARE BRUSHER with in-stent restenosis, filling retrograde via collaterals. [...] 40 mg Lasix was administered in the clinical laboratory service teacher. Past Medical History: As per HPI Significant [...] normal. Behavior: Behavior normal. Diagnostics: [facility] 06/02/2024 Coronary angiography revealed small [...] ischemic cardiomyopathy with HFrEF (~30% EF), prior [place] with stents, DM type 2, HTN, HLD, [...] -Lasix 40 mg IV given in the clinical laboratory service teacher; assess diuretic response. -Continue carvedilol; hold Entresto [...] & Follow-up Care: Contact information for follow-up [facility] [address] [facility] [address] Cardiac Rehab, [address] [facility] [address] JAMIE GRAMAJO confirmed with [facility] that they [...] Goal: Fluid Balance 06/20/2024 1028 by Michelle Oorzco RN Outcome: Ongoing (Interventions Implemented as Appropriate) [...] Roberts RN - 06/18/2024 10:50 AM EST [facility] CARDIAC REH[facility]IL[facility]ATION George Mehta was seen today regarding participation in the outpatient Phase 2 Cardiac Rehabilitation at [facility]. The patient agrees to a referral [...] recs Patient is insured through: Primary Insurance: [employer] MANAGED MEDICARE Payor: AARP MANAGED MEDICARE / Plan: AARP [facility] MANAGED MEDICARE COMPLETE / Product Type: *No Product type* / Secondary Insurance: N/A Last Physical Therapy Recommendation: (home with ) with to be determined (06/15/24 1028) Plan for discharge is: Home w/ Services Outpatient Agency/Support Group Needs: Homecare agency Agency Choices: [facility] Services: Medication checks, Registered Nurse, Physical Therapy Agency Referrals: pending clinical course and PT/OT recs [facility]. [address] [facility] [address] PHONE: [phone] FAX: [phone] Transportation: family or friend will provide Barriers [...] Agency/Support Group Needs: Homecare agency Agency Choices: [facility]: Medication checks, Registered Nurse, Physical Therapy Agency Referrals: pending clinical course and PT/OT recs [facility] [address] [place] [address] PHONE: [phone] FAX: [phone] Transportation: family or friend will provide Barriers [...] Loja MD - 06/14/2024 8:48 AM EST [facility] Operative Note Patient Name: George Mehta : [id number] MR#: [id number] Case Date: 06/14/2024 Surgeon: Surgeons and Role: * Bobby Loja MD - Primary * Rashi Bass PA - Physician Math And Science Instructor Preoperative diagnosis: CAD, MARIALUISA flickering mass on [...] all belongings with patient. 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 INDIVIDUALIZED FALL PREVENTION [...] No Patient is insured through: Primary Insurance: [facility] MANAGED MEDICARE Payor: AARP MANAGED MEDICARE / Plan: AARP [facility] MANAGED MEDICARE COMPLETE / Product Type: *No Product type* / Secondary Insurance: N/A Plan for discharge is: Home w/ Services Outpatient Agency/Support Group Needs: Homecare agency, Agency Choices: [facility] Home Health Services: Medication checks, Registered Nurse, Physical Therapy Agency Referrals: [facility] [address] [place] [address] RN / PT Routed 06/10 Transportation: family [...] with home health services when medically ready. dust box worker/Radiator Tester will continue to follow patient???s progress and remain available if situation changes for coordination of care, psychosocial support and/or discharge planning. Anticipated Date of Discharge: 06/18/2024 Mariia Montero RN CM Extension [phone] * Plan of Care - Migel Javier [...] through: Primary Insurance: AAR MANAGED MEDICARE Payor: [facility] MANAGED MEDICARE / Plan: [facility] [...] consult for high risk PCI vs CABG dust box worker/Radiator Tester will continue to follow patient???s progress and remain available if situation changes for coordination of care, psychosocial support and/or discharge planning. Anticipated Date of Discharge: 06/11/2024 Mariia Montero RN Extension [phone] * Plan of Care - Becca Hope [...] ischemic cardiomyopathy with HFrEF (~30% EF), prior [place] with stents, DM type 2, HTN, HLD, [...] Breakfast- varies - eggs with khoury or pashto muffin Lunch- turkey sandwich Supper- meat and [...] Infusions: heparin (porcine) infusion 1,400 Units/hr (06/06/24 3126) PRN: insulin lispro, potassium chloride ER OR [...] ischemic cardiomyopathy with HFrEF (~30% EF), prior [place] with stents, DM type 2, HTN, HLD, [...] Baumann APRN Endocrinology Diabetes Management Service Pager: [phone] Weekends please page [phone] 80 minute visit was spent in counseling [...] mid to high 80's. PLAN MOVING FORWARD: [facility] [facility] draws w/ AM labs. Continue with CT [...] y.o. male with a PMHx of previous [place] s/p PCI x3, ICM/HFrEF (LVEF 30%) s/p ICD, DMII, HTN, HLD, remote melanoma, and smoker who presented to [facility] last night via EMS after developing acute, severe chest pain while watching TV. Patient was ruled in for STEMI, given TNK, ASA, plavix, heparin gtt, and sent to [facility] for coronary angiography. LHC demonstrated severely calcified left coronary system with notable LCx 75/80% lesions and BISCUITWARE BRUSHER OM1 with ISR with collateral retrograde filling, [...] elevation myocardial infarction) Past Medical History: previous [place] s/p PCI x3 ICM/HFrEF (LVEF 30%) s/p [...] Infusions: heparin (porcine) infusion 1,000 Units/hr (06/03/24 7973) PRN Meds:.sodium chloride 0.9 % (flush), lidocaine, [...] is large. OM1 appears to be a BISCUITWARE BRUSHER, with in stentrestenosis and fills retrograde via [...] admitted with STEMI s/p TNK, [facility] showing multivessel CAD including ISR, [...] to our service. Signed: Paula Treviño PA-C [facility] Section of Cardiac Surgery Date: 06/03/2024 * Initial Assessments - Catina Estrada MSW - 06/03/2024 10:32 AM EDT Office of Care Management Initial Assessment CHINA Humphrey reviewed record and discussed patient with Care Team. Source of Information: Team, bedside nurse, medical record, and Patient [employer]ER Introduced self/reviewed role; services accepted. Admitted From: [...] surrogate would be surrogate decision maker per [place] decision making law. (Only good for 180 days) Any patient receiving care in [place] must abide by [place] law. The hierarchy for surrogate decision making [...] (i) The agent with financial power of collections attorney or a conservator appointed in accordance [...] homeless or living in a alf (including now)?: No In the past 12 months has the electric, gas, oil, or water [employer] threatened to shut off services in your [...] in the bathroom) Home Address confirmed as: [address] [place] [address] [address] [facility] [address] Social & Family Supports: All names listed [...] #93 - [facility], [place] - [address] [facility] [address] [place] [id number] Status: Patient is a : No Primary Care Provider confirmed: Mauro Berumen MD [phone] Patient/Caregiver Goals of Treatment: Potential Needs for [...] care as indicated. [facility], [phone]. [phone] * Brief Op Note - Angeles Gaxiola PA - 06/03/2024 12:23 AM EDT Preliminary Cardiac Catheterization Procedure Note: Patient Name: George Mehta : [id number] MR#: [id number] Case Date: 06/02/2024 - 06/03/2024 Mail Inserter: Surgeons and Role: * Nuha Shen MD - Primary * Angeles Gaxiola PA - Physician Math And Science Instructor Preoperative diagnosis: STEMI Postoperative diagnosis: * STEMI * Procedure(s) performed: RRA access [facility] Coronary angiogram IVUS LM/LAD/LCX Access: 6 Fr RRA A time-out was conducted prior to the start of the procedure to verify the correct patient and procedure, procedure location, and all relevant critical information. Preliminary findings: 69 year old current smoker (1-2 cigarette's per day), DM type 2, hypertension, dyslipidemia, ICD for HFrEF/low EF (~30%), CAD with prior [place] and 3 stents historically (in [place]) who presented to [facility] with 1 hour of rest chest [...] is large. 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) 06/14/2024 7:34 AM EST CAD Endoscopy W/Video-Asst Vein [place], Cabg ([id number]) 06/14/2024 7:34 AM EST CAD Cabg, Artery-Vein, Two ([id number]) 06/14/2024 7:34 AM EST CAD Cabg, Arterial, Single ([id number]) 06/14/2024 7:34 AM EST CAD TRANSESOPHAGEAL ECHOCARDIOGRAM IN THE OR Routine 06/14/2024 7:20 AM EST Coronary artery disease involving [place] coronary artery of [place] heart without angina pectoris POC, GLUCOSE Routine [...] * POC, GLUCOSE (06/21/2024 3:51 AM EST) [facility] Glucometer, POC 142 65 - 199 mg/dL 06/21/2024 3:51 AM EST [facility] Comment:Supplemental ranges: <140 mg/dL before meals <180 mg/dL all other times of the day. Blood CAPILLARY BLOOD / Unknown 06/21/2024 3:51 AM EST 06/21/2024 3:51 AM EST Bobby Loja MD POINT OF CARE TEST O RDERABLES [facility] [place] [address] * (ABNORMAL) Basic Metabolic Panel (06/21/2024 2:09 [...] APRN CHEMISTRY ORDERABL ES Performing Organization Address City/[facility]/ZIP Co de Phone Number [facility] [place] [address] * POC, GLUCOSE (06/21/2024 12:04 AM EST) Glucometer, POC 157 65 - 199 mg/dL 06/21/2024 12:04 AM EST [facility] Comment:Supplemental ranges: <140 mg/dL before meals <180 mg/dL all other times of the day. Blood CAPILLARY BLOOD / Unknown 06/21/2024 12:04 AM EST 06/21/2024 12:04 AM EST Bobby Loja MD POINT OF CARE TEST O NIKA Performing Organization Address [facility] Co de Phone Number [facility] [place] [address] * POC, GLUCOSE (06/20/2024 11:14 PM EST) Glucometer, POC 67 65 - 199 mg/dL 06/20/2024 11:14 PM EST [facility] Comment:Supplemental ranges: <140 mg/dL before meals <180 mg/dL all other times of the day. Blood CAPILLARY BLOOD / Unknown 06/20/2024 11:14 PM EST 06/20/2024 11:14 PM EST Bobby Loja MD POINT OF CARE TEST O NIKA Performing Organization Address City/[facility]/ZIP Co de Phone Number [facility] [place] [address] * POC, GLUCOSE (06/20/2024 7:16 PM EST) Glucometer, POC 132 65 - 199 mg/dL 06/20/2024 7:16 PM EST [facility] Comment:Supplemental ranges: <140 mg/dL before meals <180 mg/dL all other times of the day. Blood CAPILLARY BLOOD / Unknown 06/20/2024 7:16 PM EST 06/20/2024 7:16 PM EST Bobby Loja MD POINT OF CARE TEST O NIKA Performing Organization Address City/[facility]/ZIP Co de Phone Number [facility] [place] [address] * POC, GLUCOSE (06/20/2024 3:39 PM EST) Glucometer, POC 124 65 - 199 mg/dL 06/20/2024 3:40 PM EST [facility] Comment:Supplemental ranges: <140 mg/dL before meals <180 mg/dL all other times of the day. Blood CAPILLARY BLOOD / Unknown 06/20/2024 3:39 PM EST 06/20/2024 3:40 PM EST Bobby Loja MD POINT OF CARE TEST O NIKA Performing Organization Address [facility]/ZIP Co de Phone Number [facility] [place] [address] * POC, GLUCOSE (06/20/2024 12:02 PM EST) Glucometer, POC 173 65 - 199 mg/dL 06/20/2024 12:03 PM EST [facility] Comment:Supplemental ranges: <140 mg/dL before meals <180 mg/dL all other times of the day. Blood CAPILLARY BLOOD / Unknown 06/20/2024 12:02 PM EST 06/20/2024 12:03 PM EST Bobby Loja MD POINT OF CARE TEST O NIKA [facility] [place] [place] [address] * POC, GLUCOSE (06/20/2024 7:10 AM EST) Glucometer, POC 130 65 - 199 mg/dL 06/20/2024 7:11 AM EST [facility] Comment:Supplemental ranges: <140 mg/dL before meals <180 mg/dL all other times of the day. Blood CAPILLARY BLOOD / Unknown 06/20/2024 7:10 AM EST 06/20/2024 7:11 AM EST Bobby Loja MD POINT OF CARE TEST O NIKA [facility] [place] [place] [address] * (ABNORMAL) Basic Metabolic Panel (06/20/2024 2:28 [...] - 10.5 mg/dL 06/20/2024 3:06 AM EST [facility] Est Glomerular Filtration Rate - Male 56 mL/min/1. 73 m?? 06/20/2024 3:06 AM EST [facility] Comment: This patient's [...] APRN CHEMISTRY ORDERABL ES Performing Organization Address City/[facility]/ZIP Co de Phone Number [facility] [place] [address] * POC, GLUCOSE (06/20/2024 12:32 AM EST) Glucometer, POC 86 65 - 199 mg/dL 06/20/2024 12:32 AM EST [facility] Comment:Supplemental ranges: <140 mg/dL before meals <180 mg/dL all other times of the day. Blood CAPILLARY BLOOD / Unknown 06/20/2024 12:32 AM EST 06/20/2024 12:32 AM EST Bobby Loja MD POINT OF CARE TEST O RDERABLES [facility] [place] [address] * (ABNORMAL) POC, GLUCOSE (06/20/2024 12:02 AM EST) Glucometer, POC 59(L) 65 - 199 mg/dL 06/20/2024 12:02 AM EST [facility] Comment:Supplemental ranges: <140 mg/dL before meals <180 mg/dL all other times of the day. Blood CAPILLARY BLOOD / Unknown 06/20/2024 12:02 AM EST 06/20/2024 12:03 AM EST Bobby Loja MD POINT OF CARE TEST O NIKA Performing Organization Address City/[facility]/ZIP Co de Phone Number [facility] [place] [address] * POC, GLUCOSE (06/19/2024 8:15 PM EST) Glucometer, POC 131 65 - 199 mg/dL 06/19/2024 8:15 PM EST [facility] Comment:Supplemental ranges: <140 mg/dL before meals <180 mg/dL all other times of the day. Blood CAPILLARY BLOOD / Unknown 06/19/2024 8:15 PM EST 06/19/2024 8:15 PM EST Bobby Loja MD POINT OF CARE TEST O NIKA Performing Organization Address [facility] Co de Phone Number [facility] [place] [address] * POC, GLUCOSE (06/19/2024 6:01 PM EST) Glucometer, POC 129 65 - 199 mg/dL 06/19/2024 6:01 PM EST [facility] Comment:Supplemental ranges: <140 mg/dL before meals <180 mg/dL all other times of the day. Blood CAPILLARY BLOOD / Unknown 06/19/2024 6:01 PM EST 06/19/2024 6:02 PM EST Bobby Loja MD POINT OF CARE TEST O NIKA Performing Organization Address City/[facility]/ZIP Co de Phone Number [facility] [place] [address] * POC, GLUCOSE (06/19/2024 4:51 PM EST) Glucometer, POC 155 65 - 199 mg/dL 06/19/2024 4:51 PM EST [facility] Comment:Supplemental ranges: <140 mg/dL before meals <180 mg/dL all other times of the day. Blood CAPILLARY BLOOD / Unknown 06/19/2024 4:51 PM EST 06/19/2024 4:51 PM EST Bobby Loja MD POINT OF CARE TEST O RDERAPIETER Performing Organization Address City/[facility]/ZIP Co de Phone Number [facility] [place] [address] * POC, GLUCOSE (06/19/2024 12:37 PM EST) Glucometer, POC 136 65 - 199 mg/dL 06/19/2024 12:37 PM EST [facility] Comment:Supplemental ranges: <140 mg/dL before meals <180 mg/dL all other times of the day. Blood CAPILLARY BLOOD / Unknown 06/19/2024 12:37 PM EST 06/19/2024 12:37 PM EST Bobby Loja MD POINT OF CARE TEST O NIKA Performing Organization Address City/[facility]/ZIP Co de Phone Number [facility] [place] [address] * POC, GLUCOSE (06/19/2024 11:20 AM EST) Glucometer, POC 185 65 - 199 mg/dL 06/19/2024 11:21 AM EST [facility] Comment:Supplemental ranges: <140 mg/dL before meals <180 mg/dL all other times of the day. Blood CAPILLARY BLOOD / Unknown 06/19/2024 11:20 AM EST 06/19/2024 11:21 AM EST Bobby Loja MD POINT OF CARE TEST O NIKA [facility] [place] [address] * POC, GLUCOSE (06/19/2024 7:21 AM EST) Glucometer, POC 125 65 - 199 mg/dL 06/19/2024 7:21 AM EST [facility] Comment:Supplemental ranges: <140 mg/dL before meals <180 mg/dL all other times of the day. Blood CAPILLARY BLOOD / Unknown 06/19/2024 7:21 AM EST 06/19/2024 7:22 AM EST Bobby Loja MD POINT OF CARE TEST O NIKA Performing Organization Address City/[facility] Co de Phone Number [facility] [place] [address] * POC, GLUCOSE (06/19/2024 4:52 AM EST) Glucometer, POC 125 65 - 199 mg/dL 06/19/2024 4:52 AM EST [facility] Comment:Supplemental ranges: <140 mg/dL before meals <180 mg/dL all other times of the day. Blood CAPILLARY BLOOD / Unknown 06/19/2024 4:52 AM EST 06/19/2024 4:52 AM EST Bobby Loja MD POINT OF CARE TEST O NIKA Performing Organization Address City/[facility]/ZIP Co de Phone Number [facility] [place] [address] * POC, GLUCOSE (06/19/2024 4:13 AM EST) Glucometer, POC 67 65 - 199 mg/dL 06/19/2024 4:13 AM EST [facility] Comment:Supplemental ranges: <140 mg/dL before meals <180 mg/dL all other times of the day. Blood CAPILLARY BLOOD / Unknown 06/19/2024 4:13 AM EST 06/19/2024 4:13 AM EST Bobby Loja MD POINT OF CARE TEST O NIKA Performing Organization Address City/[facility]/ZIP Co de Phone Number [facility] [place] [address] * (ABNORMAL) POC, GLUCOSE (06/19/2024 3:48 AM EST) Glucometer, POC 51(LLL) 65 - 199 mg/dL 06/19/2024 3:48 AM EST [facility] Comment:Supplemental ranges: <140 mg/dL before meals <180 mg/dL all other times of the day. Blood CAPILLARY BLOOD / Unknown 06/19/2024 3:48 AM EST 06/19/2024 3:48 AM EST Bobby Loja MD POINT OF CARE TEST O NIKA Performing Organization Address [facility] Co de Phone Number [facility] [place] [address] * (ABNORMAL) Basic Metabolic Panel (06/19/2024 3:44 [...] - 15 mMol/L 06/19/2024 4:48 AM EST [facility] Calcium 8.8 8.5 - 10.5 mg/dL 06/19/2024 4:48 AM EST [facility] Est Glomerular Filtration Rate - Male 61 mL/min/1. 73 m?? 06/19/2024 4:48 AM EST [facility] Comment: This patient's [...] EST Keila Hanley APRN CHEMISTRY ORDERABL ES [facility] [place] [address] * POC, GLUCOSE (06/19/2024 12:23 AM EST) [facility] Glucometer, POC 82 65 - 199 mg/dL 06/19/2024 12:23 AM EST [facility] Comment:Supplemental ranges: <140 mg/dL before meals <180 mg/dL all other times of the day. Blood CAPILLARY BLOOD / Unknown 06/19/2024 12:23 AM EST 06/19/2024 12:23 AM EST Bobby Loja MD POINT OF CARE TEST O RDERABLES [facility] [place] [address] * POC, GLUCOSE (06/18/2024 11:08 PM EST) Glucometer, POC 73 65 - 199 mg/dL 06/18/2024 11:08 PM EST [facility] Comment:Supplemental ranges: <140 mg/dL before meals <180 mg/dL all other times of the day. Blood CAPILLARY BLOOD / Unknown 06/18/2024 11:08 PM EST 06/18/2024 11:08 PM EST Bobby Loja MD POINT OF CARE TEST O NIKA Performing Organization Address City/[facility]/ZIP Co de Phone Number [facility] [place] [address] * POC, GLUCOSE (06/18/2024 7:32 PM EST) Glucometer, POC 167 65 - 199 mg/dL 06/18/2024 7:32 PM EST [facility] Comment:Supplemental ranges: <140 mg/dL before meals <180 mg/dL all other times of the day. Blood CAPILLARY BLOOD / Unknown 06/18/2024 7:32 PM EST 06/18/2024 7:32 PM EST Bobby Loja MD POINT OF CARE TEST O NIKA Performing Organization Address City/[facility]/ZIP Co de Phone Number [facility] [place] [address] * POC, GLUCOSE (06/18/2024 6:08 PM EST) Glucometer, POC 140 65 - 199 mg/dL 06/18/2024 6:09 PM EST [facility] Comment:Supplemental ranges: <140 mg/dL before meals <180 mg/dL all other times of the day. Blood CAPILLARY BLOOD / Unknown 06/18/2024 6:08 PM EST 06/18/2024 6:09 PM EST Bobby Loja MD POINT OF CARE TEST O NIKA [facility] [place] [address] * POC, GLUCOSE (06/18/2024 4:17 PM EST) Glucometer, POC 144 65 - 199 mg/dL 06/18/2024 4:17 PM EST [facility] Comment:Supplemental ranges: <140 mg/dL before meals <180 mg/dL all other times of the day. Blood CAPILLARY BLOOD / Unknown 06/18/2024 4:17 PM EST 06/18/2024 4:17 PM EST Bobby Loja MD POINT OF CARE TEST O NIKA Performing Organization Address City/[facility]/ZIP Co de Phone Number [facility] [place] [address] * POC, GLUCOSE (06/18/2024 12:09 PM EST) Glucometer, POC 180 65 - 199 mg/dL 06/18/2024 12:09 PM EST [facility] Comment:Supplemental ranges: <140 mg/dL before meals <180 mg/dL all other times of the day. Blood CAPILLARY BLOOD / Unknown 06/18/2024 12:09 PM EST 06/18/2024 12:09 PM EST Bobby Loja MD POINT OF CARE TEST Abimael MAHER Performing Organization Address City/[facility]/ZIP Co de Phone Number [facility] [place] [address] * POC, GLUCOSE (06/18/2024 7:49 AM EST) Glucometer, POC 125 65 - 199 mg/dL 06/18/2024 7:50 AM EST [facility] Comment:Supplemental ranges: <140 mg/dL before meals <180 mg/dL all other times of the day. Blood CAPILLARY BLOOD / Unknown 06/18/2024 7:49 AM EST 06/18/2024 7:50 AM EST Bobby Loja MD POINT OF CARE TEST O RDERABLES [facility] [address] * (ABNORMAL) Basic Metabolic Panel (06/18/2024 4:19 [...] APRN CHEMISTRY ORDERABL ES Performing Organization Address City/[facility]/ZIP Co de Phone Number [facility] [place] [address] * POC, GLUCOSE (06/18/2024 3:50 AM EST) Glucometer, POC 99 65 - 199 mg/dL 06/18/2024 3:51 AM EST [facility] Comment:Supplemental ranges: <140 mg/dL before meals <180 mg/dL all other times of the day. Blood CAPILLARY BLOOD / Unknown 06/18/2024 3:50 AM EST 06/18/2024 3:51 AM EST Bobby Loja MD POINT OF CARE TEST O NIKA Performing Organization Address [facility] Co de Phone Number [facility] [place] [address] * POC, GLUCOSE (06/17/2024 11:10 PM EST) Glucometer, POC 92 65 - 199 mg/dL 06/17/2024 11:10 PM EST [facility] Comment:Supplemental ranges: <140 mg/dL before meals <180 mg/dL all other times of the day. Blood CAPILLARY BLOOD / Unknown 06/17/2024 11:10 PM EST 06/17/2024 11:10 PM EST Bobby Loja MD POINT OF CARE TEST O NIKA Performing Organization Address City/[facility]/ZIP Co de Phone Number [facility] [place] [address] * POC, GLUCOSE (06/17/2024 7:54 PM EST) Glucometer, POC 126 65 - 199 mg/dL 06/17/2024 7:54 PM EST [facility] Comment:Supplemental ranges: <140 mg/dL before meals <180 mg/dL all other times of the day. Blood CAPILLARY BLOOD / Unknown 06/17/2024 7:54 PM EST 06/17/2024 7:54 PM EST Bobby Loja MD POINT OF CARE TEST O NIKA Performing Organization Address [facility] Co de Phone Number [facility] [place] [address] * POC, GLUCOSE (06/17/2024 4:07 PM EST) Glucometer, POC 141 65 - 199 mg/dL 06/17/2024 4:12 PM EST [facility] Comment:Supplemental ranges: <140 mg/dL before meals <180 mg/dL all other times of the day. Blood CAPILLARY BLOOD / Unknown 06/17/2024 4:07 PM EST 06/17/2024 4:12 PM EST Bobby Loja MD POINT OF CARE TEST O NIKA Performing Organization Address [facility] Co de Phone Number [facility] [place] [address] * XR Chest PA & Lateral (Generic) (06/17/2024 1:46 PM EST) WORKSTATION ID [id number] RAD Anatomical Region Laterality Modality Chest N/A [...] who have questions please contact the health careers counsellor that requested your imaging first. ? Electronically signed by: Josselyn Spence MD, [facility] ([phone]), at 06/17/2024 4:49 PM Narrative 06/17/2024 4:49 [...] patients who have questions please contactthe health careers counsellor that requested your imaging first. Electronically signed by: Josselyn Spence MD, [facility]([phone]), at 06/17/2024 4:49 PM Keila Hanley JOSÉ ANTONIO IMG DX ORDERABLES * (ABNORMAL) POC, GLUCOSE (06/17/2024 11:04 AM EST) Glucometer, POC 245(H) 65 - 199 mg/dL 06/17/2024 11:04 AM EST [facility] Comment:Supplemental ranges: <140 mg/dL before meals <180 mg/dL all other times of the day. Blood CAPILLARY BLOOD / Unknown 06/17/2024 11:04 AM EST 06/17/2024 11:04 AM EST Bobby Loja MD POINT OF CARE TEST O NIKA Performing Organization Address City/[facility] Co de Phone Number [facility] [place] [address] * POC, GLUCOSE (06/17/2024 7:49 AM EST) Glucometer, POC 141 65 - 199 mg/dL 06/17/2024 7:55 AM EST [facility] Comment:Supplemental ranges: <140 mg/dL before meals <180 mg/dL all other times of the day. Blood CAPILLARY BLOOD / Unknown 06/17/2024 7:49 AM EST 06/17/2024 7:55 AM EST Bobby Loja MD POINT OF CARE TEST O NIKA [facility] [place] [address] * POC, GLUCOSE (06/17/2024 4:16 AM EST) Glucometer, POC 139 65 - 199 mg/dL 06/17/2024 4:16 AM EST [facility] Comment:Supplemental ranges: <140 mg/dL before meals <180 mg/dL all other times of the day. Blood CAPILLARY BLOOD / Unknown 06/17/2024 4:16 AM EST 06/17/2024 4:17 AM EST Bobby Loja MD POINT OF CARE TEST O RDERABLES Performing Organization Address City/[facility]/ZIP Co de Phone Number [facility] [place] [address] * Lactate, Whole Blood (06/17/2024 2:39 AM EST) Pathologist [facility] Lactate, Whole Blood 1.3 0.5 - 2.2 mmol/L 06/17/2024 2:46 AM EST [facility] Blood VENOUS BLOOD SPECIMEN / Unknown Venipuncture / Unknown 06/17/2024 2:39 AM EST 06/17/2024 2:43 AM EST Bobby Loja MD CHEMISTRY ORDERABLES Performing Organization Address City/[facility] Co de Phone Number [facility] [place] [address] * (ABNORMAL) Hemogram (06/17/2024 2:39 AM EST) [facility] White Blood Cell 13.53(H) 4.00 - 9.50 [...] - 35.7 g/dL 06/17/2024 2:53 AM EST [facility] Platelet 101(L) 145 - [...] EST Bobby Loja MD HEMATOLOGY ORDERABLE S [facility] [place] [address] * (ABNORMAL) Basic Metabolic Panel (06/17/2024 2:39 [...] AM EST Bobby Loja MD CHEMISTRY ORDERABLES [facility] [place] [address] * (ABNORMAL) POC, GLUCOSE (06/17/2024 12:13 AM EST) [facility] Signature Glucometer, POC 211(H) 65 - 199 mg/dL 06/17/2024 12:13 AM EST [facility] Comment:Supplemental ranges: <140 mg/dL before meals <180 mg/dL all other times of the day. Blood CAPILLARY BLOOD / Unknown 06/17/2024 12:13 AM EST 06/17/2024 12:14 AM EST Bobby Loja MD POINT OF CARE TEST O NIKA Performing Organization Address [facility] Co de Phone Number [facility] [place] [address] * (ABNORMAL) POC, GLUCOSE (06/16/2024 7:22 PM EST) Glucometer, POC 229(H) 65 - 199 mg/dL 06/16/2024 7:22 PM EST [facility] Comment:Supplemental ranges: <140 mg/dL before meals <180 mg/dL all other times of the day. Blood CAPILLARY BLOOD / Unknown 06/16/2024 7:22 PM EST 06/16/2024 7:22 PM EST Bobby Loja MD POINT OF CARE TEST Abimael MAHER Performing Organization Address [facility] de Phone Number [facility] [place] [address] * (ABNORMAL) POC, GLUCOSE (06/16/2024 6:14 PM EST) Glucometer, POC 220(H) 65 - 199 mg/dL 06/16/2024 6:14 PM EST [facility] Comment:Supplemental ranges: <140 mg/dL before meals <180 mg/dL all other times of the day. Blood CAPILLARY BLOOD / Unknown 06/16/2024 6:14 PM EST 06/16/2024 6:14 PM EST Bobby Loja MD POINT OF CARE TEST O NIKA Performing Organization Address [facility] Co de Phone Number [facility] [place] [address] * Lactate, Whole Blood (06/16/2024 6:14 PM EST) Lactate, Whole Blood 1.8 0.5 - 2.2 mmol/L 06/16/2024 6:27 PM EST [facility] Blood VENOUS BLOOD SPECIMEN / Unknown Venipuncture / Unknown 06/16/2024 6:14 PM EST 06/16/2024 6:25 PM EST Narrative Authorizing Provider Result Saranya Loja MD CHEMISTRY ORDERABLES [facility] [place] [address] * (ABNORMAL) POC, GLUCOSE (06/16/2024 4:14 PM EST) Glucometer, POC 240(H) 65 - 199 mg/dL 06/16/2024 4:14 PM EST [facility] Comment:Supplemental ranges: <140 mg/dL before meals <180 mg/dL all other times of the day. Blood CAPILLARY BLOOD / Unknown 06/16/2024 4:14 PM EST 06/16/2024 4:14 PM EST Bobby Loja MD POINT OF CARE TEST O RDERAPIETER Performing Organization Address City/[facility]/ZIP Co de Phone Number [facility] [place] [address] * POC, GLUCOSE (06/16/2024 11:49 AM EST) Glucometer, POC 199 65 - 199 mg/dL 06/16/2024 11:49 AM EST [facility] Comment:Supplemental ranges: <140 mg/dL before meals <180 mg/dL all other times of the day. Blood CAPILLARY BLOOD / Unknown 06/16/2024 11:49 AM EST 06/16/2024 11:49 AM EST Bobby Loja MD POINT OF CARE TEST O RDBECKIE [facility] [place] [address] * (ABNORMAL) Hemogram (06/16/2024 11:44 AM EST) [...] MD HEMATOLOGY ORDERABLE S Performing Organization Address [facility] Co de Phone Number [facility] [place] [address] * Lactate, Whole Blood (06/16/2024 9:02 AM EST) Lactate, Whole Blood 1.8 0.5 - 2.2 mmol/L 06/16/2024 9:19 AM EST [facility] Blood VENOUS BLOOD SPECIMEN / Unknown Venipuncture / Unknown 06/16/2024 9:02 AM EST 06/16/2024 9:17 AM EST Bobby Loja MD CHEMISTRY ORDERABLES Performing Organization Address [facility] Phone Number [facility] [place] [address] * POC, GLUCOSE (06/16/2024 7:44 AM EST) Glucometer, POC 129 65 - 199 mg/dL 06/16/2024 7:44 AM EST [facility] Comment:Supplemental ranges: <140 mg/dL before meals <180 mg/dL all other times of the day. Blood CAPILLARY BLOOD / Unknown 06/16/2024 7:44 AM EST 06/16/2024 7:44 AM EST Bobby Loja MD POINT OF CARE TEST O RDERABLES Performing Organization Address [facility] Co de Phone Number [facility] [place] [address] * POC, GLUCOSE (06/16/2024 4:01 AM EST) Glucometer, POC 158 65 - 199 mg/dL 06/16/2024 4:01 AM EST [facility] Comment:Supplemental ranges: <140 mg/dL before meals <180 mg/dL all other times of the day. Blood CAPILLARY BLOOD / Unknown 06/16/2024 4:01 AM EST 06/16/2024 4:01 AM EST Bobby Loja MD POINT OF CARE TEST O RDERABLES [facility] [place] [address] * (ABNORMAL) Basic Metabolic Panel (06/16/2024 2:23 AM EST) Glucose 177 65 - 199 mg/dL 06/16/2024 3:13 AM EST [facility] Comment:Glucose Concentratio n [...] Loja MD CHEMISTRY ORDERABLES Performing Organization Address [facility] Phone Number [facility] [place] [address] * POC, GLUCOSE (06/16/2024 2:21 AM EST) Glucometer, POC 176 65 - 199 mg/dL 06/16/2024 2:31 AM EST [facility] Comment:Supplemental ranges: <140 mg/dL before meals <180 mg/dL all other times of the day. Blood CAPILLARY BLOOD / Unknown 06/16/2024 2:21 AM EST 06/16/2024 2:31 AM EST Bobby Loja MD POINT OF CARE TEST O RDERABLES Performing Organization Address [facility] de Phone Number [facility] [place] [address] * (ABNORMAL) POC, GLUCOSE (06/16/2024 12:09 AM EST) Glucometer, POC 222(H) 65 - 199 mg/dL 06/16/2024 12:09 AM EST [facility] Comment:Supplemental ranges: <140 mg/dL before meals <180 mg/dL all other times of the day. Blood CAPILLARY BLOOD / Unknown 06/16/2024 12:09 AM EST 06/16/2024 12:09 AM EST Bobby Loja MD POINT OF CARE TEST O RDBECKIE Performing Organization Address City/[facility] Co de Phone Number [facility] [place] [address] * (ABNORMAL) POC, GLUCOSE (06/15/2024 10:07 PM EST) Glucometer, POC 320(H) 65 - 199 mg/dL 06/15/2024 10:07 PM EST [facility] Comment:Supplemental ranges: <140 mg/dL before meals <180 mg/dL all other times of the day. Blood CAPILLARY BLOOD / Unknown 06/15/2024 10:07 PM EST 06/15/2024 10:07 PM EST Bobby Loja MD POINT OF CARE TEST O NIKA Performing Organization Address City/[facility] Co de Phone Number [facility] [place] [address] * (ABNORMAL) POC, GLUCOSE (06/15/2024 7:56 PM EST) Glucometer, POC 304(H) 65 - 199 mg/dL 06/15/2024 7:56 PM EST [facility] Comment:Supplemental ranges: <140 mg/dL before meals <180 mg/dL all other times of the day. Blood CAPILLARY BLOOD / Unknown 06/15/2024 7:56 PM EST 06/15/2024 7:56 PM EST Bobby Loja MD POINT OF CARE TEST O NIKA [facility] [place] [address] * (ABNORMAL) POC, GLUCOSE (06/15/2024 7:52 PM EST) Glucometer, POC 288(H) 65 - 199 mg/dL 06/15/2024 7:52 PM EST [facility] Comment:Supplemental ranges: <140 mg/dL before meals <180 mg/dL all other times of the day. Blood CAPILLARY BLOOD / Unknown 06/15/2024 7:52 PM EST 06/15/2024 7:52 PM EST Bobby Loja MD POINT OF CARE TEST O NIKA Performing Organization Address [facility] Co de Phone Number [facility] [place] [address] * POC, GLUCOSE (06/15/2024 4:21 PM EST) Glucometer, POC 192 65 - 199 mg/dL 06/15/2024 4:21 PM EST [facility] Comment:Supplemental ranges: <140 mg/dL before meals <180 mg/dL all other times of the day. Blood CAPILLARY BLOOD / Unknown 06/15/2024 4:21 PM EST 06/15/2024 4:21 PM EST Bobby Loja MD POINT OF CARE TEST Abimael MAHER Performing Organization Address [facility] de Phone Number [facility] [place] [address] * POC, GLUCOSE (06/15/2024 3:27 PM EST) Glucometer, POC 155 65 - 199 mg/dL 06/15/2024 3:27 PM EST [facility] Comment:Supplemental ranges: <140 mg/dL before meals <180 mg/dL all other times of the day. Blood CAPILLARY BLOOD / Unknown 06/15/2024 3:27 PM EST 06/15/2024 3:27 PM EST Bobby Loja MD POINT OF CARE TEST O NIKA Performing Organization Address [facility] Co de Phone Number [facility] [place] [address] * POC, GLUCOSE (06/15/2024 2:23 PM EST) Glucometer, POC 160 65 - 199 mg/dL 06/15/2024 2:23 PM EST [facility] Comment:Supplemental ranges: <140 mg/dL before meals <180 mg/dL all other times of the day. Blood CAPILLARY BLOOD / Unknown 06/15/2024 2:23 PM EST 06/15/2024 2:23 PM EST Narrative Authorizing Provider Result Saranya Loja MD POINT OF CARE TEST O NIKA Performing Organization Address [facility]/ZIP Co de Phone Number [facility] [place] [address] * POC, GLUCOSE (06/15/2024 1:26 PM EST) Glucometer, POC 167 65 - 199 mg/dL 06/15/2024 1:26 PM EST [facility] Comment:Supplemental ranges: <140 mg/dL before meals <180 mg/dL all other times of the day. Blood CAPILLARY BLOOD / Unknown 06/15/2024 1:26 PM EST 06/15/2024 1:26 PM EST Narrative Authorizing Provider Result Saranya Loja MD POINT OF CARE TEST Abimael MAHER Performing Organization Address [facility] Co de Phone Number [facility] [address] * (ABNORMAL) POC, GLUCOSE (06/15/2024 12:55 PM EST) Glucometer, POC 210(H) 65 - 199 mg/dL 06/15/2024 12:55 PM EST [facility] Comment:Supplemental ranges: <140 mg/dL before meals <180 mg/dL all other times of the day. Blood CAPILLARY BLOOD / Unknown 06/15/2024 12:55 PM EST 06/15/2024 12:55 PM EST Narrative Authorizing Provider Result Saranya Loja MD POINT OF CARE TEST O NIKA Performing Organization Address City/[facility] Co de Phone Number [facility] [place] [address] * (ABNORMAL) POC, GLUCOSE (06/15/2024 11:29 AM EST) Glucometer, POC 220(H) 65 - 199 mg/dL 06/15/2024 11:[address] [facility] Comment:Supplemental ranges: <140 mg/dL before meals <180 mg/dL all other times of the day. Blood CAPILLARY BLOOD / Unknown 06/15/2024 11:29 AM EST 06/15/2024 11:29 AM EST Bobby Loja MD POINT OF CARE TEST O NIKA [facility] [place] [address] * (ABNORMAL) Basic Metabolic Panel (06/15/2024 11:23 [...] Loja MD CHEMISTRY ORDERABLES Performing Organization Address [facility] Co de Phone Number [facility] [place] [address] * POC, GLUCOSE (06/15/2024 10:29 AM EST) Glucometer, POC 189 65 - 199 mg/dL 06/15/2024 10:29 AM EST [facility] Comment:Supplemental ranges: <140 mg/dL before meals <180 mg/dL all other times of the day. Blood CAPILLARY BLOOD / Unknown 06/15/2024 10:29 AM EST 06/15/2024 10:29 AM EST Bobby Loja MD POINT OF CARE TEST O RDERABLES [facility] [place] [address] * POC, GLUCOSE (06/15/2024 9:45 AM EST) Glucometer, POC 178 65 - 199 mg/dL 06/15/2024 9:45 AM EST [facility] Comment:Supplemental ranges: <140 mg/dL before meals <180 mg/dL all other times of the day. Blood CAPILLARY BLOOD / Unknown 06/15/2024 9:45 AM EST 06/15/2024 9:45 AM EST Bobby Loja MD POINT OF CARE TEST O RDERAPIETER [facility] [place] [address] * (ABNORMAL) Cooximetry, POC (06/15/2024 9:31 AM EST) pO2, Coox 38 mmHg 06/15/2024 9:[address] [facility] Hemoglobin, Coox 12.9(L) 13.7 - 16.5 g/dL 06/15/2024 9:[address] [facility] Oxyhemoglobin, Coox 72.1 % 06/15/2024 9:[address] [facility] Carboxyhemoglo bin, Coox 0.9 % 06/15/2024 9:34 AM EST [facility] Comment: Nonsmokers: 0.5-1.5% COHB ?? Smokers: Variable ??but usually less than 10% ?? Toxic: 20-30% COHB ?? Lethal: Greater than 60% COHB Methemoglobin, Coox 0.3 <=1.5 % 06/15/2024 9:34 AM EST [facility] Blood (Mixed Venous) 06/15/2024 9:31 AM EST 06/15/2024 9:34 AM EST Bobby Loja MD POINT OF CARE TEST O NIKA [facility] [place] [address] * Cooximetry, POC (06/15/2024 9:22 AM EST) pO2, Coox 30 mmHg 06/15/2024 9:25 AM EST [facility] Hemoglobin, Coox 06/15/2024 9:25 AM EST [facility] Comment:QUES Oxyhemoglobin, Coox 06/15/2024 9:[address] [facility] Comment:QUES Carboxyhemoglo bin, Coox 06/15/2024 9:[address] [facility] Comment:QUES Methemoglobin, Coox 06/15/2024 9:[address] [facility] Comment:QUES Blood (Mixed Venous) 06/15/2024 9:22 AM EST 06/15/2024 9:25 AM EST Bobby Loja MD POINT OF CARE TEST O RDERABLES [facility] [place] [address] * (ABNORMAL) Blood Gas, Arterial POC (06/15/2024 [...] MD POINT OF CARE TEST O RDERABLES [facility] [place] [address] * (ABNORMAL) POC, GLUCOSE (06/15/2024 8:37 AM EST) Glucometer, POC 204(H) 65 - 199 mg/dL 06/15/2024 8:[address] [facility] Comment:Supplemental ranges: <140 mg/dL before meals <180 mg/dL all other times of the day. Blood CAPILLARY BLOOD / Unknown 06/15/2024 8:37 AM EST 06/15/2024 8:37 AM EST Bobby Loja MD POINT OF CARE TEST O NIKA Performing Organization Address [facility] de Phone Number [facility] [place] [address] * POC, GLUCOSE (06/15/2024 7:37 AM EST) Glucometer, POC 199 65 - 199 mg/dL 06/15/2024 7:37 AM EST [facility] Comment:Supplemental ranges: <140 mg/dL before meals <180 mg/dL all other times of the day. Blood CAPILLARY BLOOD / Unknown 06/15/2024 7:37 AM EST 06/15/2024 7:38 AM EST Bobby Loja MD POINT OF CARE TEST O NIKA Performing Organization Address [facility] de Phone Number [facility] [place] [address] * (ABNORMAL) POC, GLUCOSE (06/15/2024 7:01 AM EST) Glucometer, POC 203(H) 65 - 199 mg/dL 06/15/2024 7:01 AM EST [facility] Comment:Supplemental ranges: <140 mg/dL before meals <180 mg/dL all other times of the day. Blood CAPILLARY BLOOD / Unknown 06/15/2024 7:01 AM EST 06/15/2024 7:01 AM EST Bobby Loja MD POINT OF CARE TEST O NIKA Performing Organization Address [facility] Co de Phone Number [facility] [place] [address] * XR Chest One View (06/15/2024 6:31 AM EST) WORKSTATION ID [id number] RAD Anatomical Region Laterality Modality Chest N/A [...] who have questions please contact the health careers counsellor that requested your imaging first. ? Electronically signed by: Stuart Aponte MD, [facility] ??([phone]), at 06/15/2024 10:38 AM Narrative 06/15/2024 10:38 [...] patients who have questions please contactthe health careers counsellor that requested your imaging first. Electronically signed by: Stuart Aponte MD, [facility]([phone]), at 06/15/2024 10:38 AM Bobby Loja MD IMG DX ORDERABLES * POC, GLUCOSE (06/15/2024 6:02 AM EST) Glucometer, POC 179 65 - 199 mg/dL 06/15/2024 6:02 AM EST [facility] Comment:Supplemental ranges: <140 mg/dL before meals <180 mg/dL all other times of the day. Blood CAPILLARY BLOOD / Unknown 06/15/2024 6:02 AM EST 06/15/2024 6:02 AM EST Bobby Loja MD POINT OF CARE TEST O NIKA Performing Organization Address [facility] Co de Phone Number [facility] [place] [address] * POC, GLUCOSE (06/15/2024 5:06 AM EST) Glucometer, POC 160 65 - 199 mg/dL 06/15/2024 5:06 AM EST [facility] Comment:Supplemental ranges: <140 mg/dL before meals <180 mg/dL all other times of the day. Blood CAPILLARY BLOOD / Unknown 06/15/2024 5:06 AM EST 06/15/2024 5:06 AM EST Bobby Loja MD POINT OF CARE TEST O NIKA Performing Organization Address City/[facility] Co de Phone Number [facility] [address] * POC, GLUCOSE (06/15/2024 4:05 AM EST) Glucometer, POC 160 65 - 199 mg/dL 06/15/2024 4:06 AM EST [facility] Comment:Supplemental ranges: <140 mg/dL before meals <180 mg/dL all other times of the day. Blood CAPILLARY BLOOD / Unknown 06/15/2024 4:05 AM EST 06/15/2024 4:06 AM EST Bobby Loja MD POINT OF CARE TEST O NIKA Performing Organization Address [facility] Co de Phone Number [facility] [place] [address] * POC, GLUCOSE (06/15/2024 3:07 AM EST) Glucometer, POC 151 65 - 199 mg/dL 06/15/2024 3:[address] [facility] Comment:Supplemental ranges: <140 mg/dL before meals <180 mg/dL all other times of the day. Blood CAPILLARY BLOOD / Unknown 06/15/2024 3:07 AM EST 06/15/2024 3:07 AM EST Bobby Loja MD POINT OF CARE TEST O NIKA Performing Organization Address [facility] Co de Phone Number [facility] [address] * (ABNORMAL) Basic Metabolic Panel (06/15/2024 1:48 [...] - 107 mMol/L 06/15/2024 2:38 AM EST [facility] Carbon Dioxide 23 22 [...] AM EST Bobby Loja MD CHEMISTRY ORDERABLES [facility] [place] [address] * (ABNORMAL) CBC (with Diff) (06/15/2024 1:48 AM EST) White Blood Cell 11.71(H) 4.00 - 9.50 x10(3)/mc L 06/15/2024 2:13 AM EST [facility] Red Blood Cell 4.14(L) 4.58 - 5.54 x10(6)/mc L 06/15/2024 2:13 AM EST [facility] Hemoglobin 12.5(L) 13.7 [...] 3.20 x10(3)/mc L 06/15/2024 2:13 AM EST [facility] Monocyte % 11.4 % 06/15/2024 2:13 AM EST [facility] Monocyte Absolute 1.33(H) 0.30 - 0.90 x10(3)/mc L 06/15/2024 2:13 AM EST [facility] Eos % 0.2 % 06/15/2024 2:13 AM EST [facility] Eos Absolute <0.04 0.00 - 0.40 x10(3)/mc L 06/15/2024 2:13 AM EST [facility] Basophil % 0.2 % 06/15/2024 2:13 AM EST [facility] Baso Absolute <0.04 0.00 - 0.10 x10(3)/mc L 06/15/2024 2:13 AM EST [facility] Immature Gran % 0.5 % 2:[address] [facility] Immature Gran Absolute 0.06(H) 0.00 - 0.04 x10(3)/mc L 06/15/2024 2:13 AM EST [facility] Blood VENOUS BLOOD SPECIMEN / Unknown Venipuncture / Unknown 06/15/2024 1:48 AM EST 06/15/2024 1:52 AM EST Bobby Loja MD HEMATOLOGY ORDERABLE S Performing Organization Address City/State/[facility] Co de Phone Number [facility] [address] * (ABNORMAL) Troponin - Single (06/15/2024 1:48 AM EST) Troponin-T, High Sensitivity 667(H) <=22 ng/L 06/15/2024 2:22 AM EST [facility] Comment: This patient's [...] value can be found in the [facility] Laboratory Test Catalog Troponin - https://[email or web address]-.testcatalog.org/catalogs/565/[email or web address]/77949 Reference: Fourth Cornish Definition of Myocardial Infarction. Journal of the [employer] 2018;72:1620-8636 Blood VENOUS BLOOD SPECIMEN / Unknown Venipuncture / Unknown 06/15/2024 1:48 AM EST 06/15/2024 1:52 AM EST Bobby Loja MD CHEMISTRY ORDERABLES [facility] [address] * (ABNORMAL) Blood Gas, Arterial POC (06/15/2024 1:46 AM EST) pH, Arterial 7.33(L) 7.35 - 7.45 06/15/2024 1:47 AM EST [facility] PCO2, Arterial 40 35 - 45 mmHg 06/15/2024 1:47 AM EST [facility] PO2, Arterial 131(H) 85 - 104 mmHg 06/15/2024 1:47 AM EST [facility] Bicarbonate, Arterial 20.7 20.0 - 26.0 mmol/L 06/15/2024 1:47 AM EST [facility] Base Excess, Arterial -5.2(L) -3.0 - 3.0 mmol/L 06/15/2024 1:47 AM EST [facility] Hemoglobin, Arterial 13.4(L) 13.7 [...] CARE TEST O RDERABLES Performing Organization Address City/[facility]/ZIP Co de Phone Number [facility] [place] [address] * POC, GLUCOSE (06/15/2024 1:05 AM EST) Glucometer, POC 116 65 - 199 mg/dL 06/15/2024 1:05 AM EST [facility] Comment:Supplemental ranges: <140 mg/dL before meals <180 mg/dL all other times of the day. Blood CAPILLARY BLOOD / Unknown 06/15/2024 1:05 AM EST 06/15/2024 1:05 AM EST Bobby Loja MD POINT OF CARE TEST O NIKA Performing Organization Address [facility] Co de Phone Number [facility] [place] [address] * POC, GLUCOSE (06/15/2024 12:16 AM EST) Glucometer, POC 135 65 - 199 mg/dL 06/15/2024 12:16 AM EST [facility] Comment:Supplemental ranges: <140 mg/dL before meals <180 mg/dL all other times of the day. Blood CAPILLARY BLOOD / Unknown 06/15/2024 12:16 AM EST 06/15/2024 12:16 AM EST Bobby Loja MD POINT OF CARE TEST O NIKA [facility] [address] * Potassium (06/14/2024 11:28 PM EST) Potassium 4.1 3.5 - 5.0 mMol/L 06/14/2024 11:54 PM EST [facility] Blood VENOUS BLOOD SPECIMEN / Unknown Venipuncture / Unknown 06/14/2024 11:28 PM EST 06/14/2024 11:34 PM EST Bobby Loja MD CHEMISTRY ORDERABLES Performing Organization Address City/[facility] Co de Phone Number [facility] [place] [address] * POC, GLUCOSE (06/14/2024 10:58 PM EST) Glucometer, POC 126 65 - 199 mg/dL 06/14/2024 10:59 PM EST [facility] Comment:Supplemental ranges: <140 mg/dL before meals <180 mg/dL all other times of the day. Blood CAPILLARY BLOOD / Unknown 06/14/2024 10:58 PM EST 06/14/2024 10:59 PM EST Bobby Loja MD POINT OF CARE TEST O RDERABLES Performing Organization Address [facility] Co de Phone Number [facility] [place] [address] * POC, GLUCOSE (06/14/2024 9:55 PM EST) Glucometer, POC 152 65 - 199 mg/dL 06/14/2024 9:56 PM EST [facility] Comment:Supplemental ranges: <140 mg/dL before meals <180 mg/dL all other times of the day. Blood CAPILLARY BLOOD / Unknown 06/14/2024 9:55 PM EST 06/14/2024 9:56 PM EST Bobby Loja MD POINT OF CARE TEST O NIKA Performing Organization Address City/[facility]/ZIP Co de Phone Number [facility] [place] [address] * POC, GLUCOSE (06/14/2024 8:54 PM EST) Glucometer, POC 151 65 - 199 mg/dL 06/14/2024 8:54 PM EST [facility] Comment:Supplemental ranges: <140 mg/dL before meals <180 mg/dL all other times of the day. Blood CAPILLARY BLOOD / Unknown 06/14/2024 8:54 PM EST 06/14/2024 8:54 PM EST Bobby Loja MD POINT OF CARE TEST O NIKA Performing Organization Address [facility] Co de Phone Number [facility] [place] [address] * POC, GLUCOSE (06/14/2024 7:51 PM EST) Glucometer, POC 169 65 - 199 mg/dL 06/14/2024 7:52 PM EST [facility] Comment:Supplemental ranges: <140 mg/dL before meals <180 mg/dL all other times of the day. Blood CAPILLARY BLOOD / Unknown 06/14/2024 7:51 PM EST 06/14/2024 7:52 PM EST Bobby Loja MD POINT OF CARE TEST O NIKA Performing Organization Address [facility] Co de Phone Number [facility] [place] [address] * POC, GLUCOSE (06/14/2024 6:49 PM EST) Glucometer, POC 194 65 - 199 mg/dL 06/14/2024 6:50 PM EST [facility] Comment:Supplemental ranges: <140 mg/dL before meals <180 mg/dL all other times of the day. Blood CAPILLARY BLOOD / Unknown 06/14/2024 6:49 PM EST 06/14/2024 6:50 PM EST Bobby Loja MD POINT OF CARE TEST O NIKA Performing Organization Address [facility] Co de Phone Number [facility] [place] [place] [address] * (ABNORMAL) Hemoglobin (06/14/2024 6:19 PM EST) Hemoglobin 13.1(L) 13.7 - 16.5 g/dL 06/14/2024 7:08 PM EST [facility] Blood VENOUS BLOOD SPECIMEN / Unknown Venipuncture / Unknown 06/14/2024 6:19 PM EST 06/14/2024 6:28 PM EST Bobby Loja MD HEMATOLOGY ORDERABLE S Performing Organization Address [facility]/ZIP Co de Phone Number [facility] [place] [address] * Potassium (06/14/2024 6:19 PM EST) Potassium 3.9 3.5 - 5.0 mMol/L 06/14/2024 6:52 PM EST [facility] Blood VENOUS BLOOD SPECIMEN / Unknown Venipuncture / Unknown 06/14/2024 6:19 PM EST 06/14/2024 6:28 PM EST Bobby Loja MD CHEMISTRY ORDERABLES Performing Organization Address [facility] Co de Phone Number [facility] [place] [address] * (ABNORMAL) POC, GLUCOSE (06/14/2024 6:03 PM EST) Glucometer, POC 201(H) 65 - 199 mg/dL 06/14/2024 6:03 PM EST [facility] Comment:Supplemental ranges: <140 mg/dL before meals <180 mg/dL all other times of the day. Blood CAPILLARY BLOOD / Unknown 06/14/2024 6:03 PM EST 06/14/2024 6:03 PM EST Bobby Loja MD POINT OF CARE TEST O RDERABLES Performing Organization Address [facility] Co de Phone Number [facility] [place] [address] * (ABNORMAL) Blood Gas, Arterial POC (06/14/2024 [...] - 1.33 mmol/L 06/14/2024 4:52 PM EST [facility] Glucose, Arterial 192 65 - 199 mg/dL 06/14/2024 4:52 PM EST [facility] Comment:Glucose Concentratio n >=200 mg/dL plus symptoms is consistent with Diabetes Mellitus. Blood ARTERIAL BLOOD / Unknown 06/14/2024 4:51 PM EST 06/14/2024 4:52 PM EST Bobby Loja MD POINT OF CARE TEST O NIKA Performing Organization Address [facility] Co de Phone Number [facility] [place] [place] [address] * POC, GLUCOSE (06/14/2024 4:00 PM EST) Glucometer, POC 184 65 - 199 mg/dL 06/14/2024 4:01 PM EST [facility] Comment:Supplemental ranges: <140 mg/dL before meals <180 mg/dL all other times of the day. Blood CAPILLARY BLOOD / Unknown 06/14/2024 4:00 PM EST 06/14/2024 4:01 PM EST Bobby Loja MD POINT OF CARE TEST O NIKA Performing Organization Address City/[facility] Co de Phone Number [facility] [place] [address] * XR Chest One View (06/14/2024 3:05 PM EST) WORKSTATION ID [id number] DH RAD Anatomical Region Laterality Modality Chest [...] who have questions please contact the health careers counsellor that requested your imaging first. ? Electronically signed by: Stuart Aponte MD, [facility] ??([phone]), at 06/14/2024 4:07 PM Narrative 06/14/2024 4:07 [...] patients who have questions please contactthe health careers counsellor that requested your imaging first. Electronically signed by: Stuart Aponte MD, [facility]([phone]), at 06/14/2024 4:07 PM Bobby Loja MD [...] 0.1 <=1.5 % 06/14/2024 2:53 PM EST [facility] Sodium, Arterial 138 135 - 145 mmol/L 06/14/2024 2:53 PM EST [facility] Potassium, Arterial 4.2 3.5 - 5.0 mmol/L 06/14/2024 2:53 PM EST [facility] Chloride, Arterial 106 98 - 107 mmol/L 06/14/2024 2:[address] [facility] Lactate, Arterial 1.1 0.5 - 2.2 mmol/L 06/14/2024 2:[address] [facility] Fraction of Inspired Oxygen 100 % 06/14/2024 2:53 PM EST [facility] PF Ratio 510 Ratio 06/14/2024 2:53 PM EST [facility] Comment:PF ratio calculated using the non-temperature corrected pO2 result. IONIZED CALCIUM, ARTERIAL 1.15 1.15 - 1.33 mmol/L 06/14/2024 2:[address] [facility] Glucose, Arterial 169 65 - 199 mg/dL 06/14/2024 2:53 PM EST [facility] Comment:Glucose Concentratio n >=200 mg/dL plus symptoms is consistent with Diabetes Mellitus. Blood ARTERIAL BLOOD / Unknown 06/14/2024 2:52 PM EST 06/14/2024 2:53 PM EST Bobby Loja MD POINT OF CARE TEST O RDERABLES [facility] [place] [place] [address] * EKG 12 Lead (06/14/2024 2:46 PM EST) Ventricular rate 80 BPM MUSE SYSTEM Atrial Rate 80 BPM MUSE SYSTEM P-R Interval 120 ms MUSE SYSTEM QRS Duration 108 ms MUSE SYSTEM Q-T Interval 454 ms MUSE SYSTEM QTC Calculated (Bezet) 523 ms MUSE SYSTEM Calculated P [place] 70 degrees MUSE SYSTEM Calculated R [place] 56 degrees MUSE SYSTEM Calculated T [place] 50 degrees MUSE SYSTEM INTERPRETATION AV dual-paced rhythm Abnormal ECG When compared with ECG of 03-JUN-2024 01:45, Vent. rate has increased BY ??17 BPM Confirmed by MD Marisol, Shaheen ([id number]) on 06/15/2024 1:57:23 PM MUSE SYSTEM 06/14/2024 2:46 PM EST 06/15/2024 1:57 PM EST Bobby Loja MD ECG ORDERABLES MUSE SYSTEM * Prepare RBC (06/14/2024 2:27 PM EST) Status Information Returned [facility] Product Identification RBC [facility] Unit [facility] [id number] [facility] Product Code [id number] [facility] Unit Blood Type OPOS [facility] Specimen Expiration Date [facility] Volulme 350 [facility] Issue Date / Time [facility] Status Information Returned [facility] Product Identification RBC [facility] Unit Number [id number] [facility] Product Code [id number] [facility] Unit Blood Type OPOS [facility] Specimen Expiration Date [facility] Volulme 350 [facility] Issue Date / Time [facility] Blood 06/14/2024 6:2 5 AM EST Haja Byrnes MD BLOOD BANK PRODUCT O RDERABLES [facility] [place] [address] * (ABNORMAL) Cooximetry, POC (06/14/2024 1:52 PM [...] MD POINT OF CARE TEST O RDERABLES [facility] [place] [address] * (ABNORMAL) Blood Gas, Arterial POC (06/14/2024 [...] - 3.0 mmol/L 06/14/2024 12:48 PM EST [facility] Hemoglobin, Arterial 11.7(L) 13.7 [...] MD POINT OF CARE TEST O RDERABLES [facility] [place] [address] * (ABNORMAL) Cooximetry, POC (06/14/2024 12:42 PM EST) pO2, Coox 71 mmHg 06/14/2024 12:45 PM EST [facility] Hemoglobin, Coox 11.6(L) 13.7 - 16.5 g/dL 06/14/2024 12:45 PM EST [facility] Oxyhemoglobin, Coox 91.5 % 06/14/2024 12:45 PM EST [facility] Carboxyhemoglo bin, Coox 0.3 % 06/14/2024 12:45 PM EST [facility] Comment: Nonsmokers: 0.5-1.5% COHB ?? Smokers: Variable ??but usually less than 10% ?? Toxic: 20-30% COHB ?? Lethal: Greater than 60% COHB Methemoglobin, Coox 0.4 <=1.5 % 06/14/2024 12:45 PM EST [facility] Blood (Mixed Venous) 06/14/2024 12:42 PM EST 06/14/2024 12:45 PM EST Haja Byrnes MD POINT OF CARE TEST O RDERABLES [facility] [place] [address] * (ABNORMAL) Platelet count (06/14/2024 12:30 PM EST) Platelet 73(L) 145 - 357 x10(3)/mcL 06/14/2024 12:54 PM EST [facility] Blood ARTERIAL BLOOD / Unknown 06/14/2024 12:30 PM EST Comment:Pre-op diagnosis: CAD Bobby Loja MD HEMATOLOGY ORDERABLE S [facility] [place] [address] * (ABNORMAL) Hemoglobin and Hematocrit, blood (06/14/2024 12:30 PM EST) Hemoglobin 10.9(L) 13.7 - 16.5 g/dL 06/14/2024 12:54 PM EST [facility] Hematocrit 33.5(L) 40.5 - 48.5 % 06/14/2024 12:54 PM EST [facility] Comment:This result has been called to Danielle López by Satya Page on 06/14/2024 12:53:56, and has been read back. Blood ARTERIAL BLOOD / Unknown 06/14/2024 12:30 PM EST 06/14/2024 12:42 PM EST Comment:Pre-op diagnosis: CAD Bobby Loja MD HEMATOLOGY ORDERABLE S Performing Organization Address [facility] Co de Phone Number [facility] [place] [address] * APTT (06/14/2024 12:30 PM EST) Partial Thromboplastin Time 31 25 - 37 sec 06/14/2024 12:57 PM EST [facility] Comment: The PTT is NOT appropriate for heparin monitoring. Use the Anti-Xa level for heparin monitoring (HEP UFH) or LMWH monitoring (HEP LMW). A PTT less than 37 seconds generally indicates adequate hemostasis. Blood ARTERIAL BLOOD / Unknown 06/14/2024 12:30 PM EST 06/14/2024 12:42 PM EST Comment:Pre-op diagnosis: CAD Bobby Loja MD HEMATOLOGY ORDERABLE S Performing Organization Address City/[facility]/ZIP Co de Phone Number [facility] [place] [address] * (ABNORMAL) Prothrombin Time (06/14/2024 12:30 PM EST) Prothrombin Time 16.8(H) 9.4 - 12.5 sec 06/14/2024 12:57 PM EST [facility] International Normalization Ratio 1.5 <=4.9 06/14/2024 12:57 PM EST [facility] Comment: An INR [...] MD HEMATOLOGY ORDERABLE S Performing Organization Address [facility]/ZIP Co de Phone Number [facility] [place] [address] * Fibrinogen (06/14/2024 12:30 PM EST) Fibrinogen 211 200 - 393 mg/dL 06/14/2024 12:57 PM EST [facility] Comment: A fibrinogen level >100 mg/dL is adequate for hemostasis in most patients without underlying bleeding disorders. Blood ARTERIAL BLOOD / Unknown 06/14/2024 12:30 PM EST 06/14/2024 12:42 PM EST Comment:Pre-op diagnosis: CAD Bobby Loja MD HEMATOLOGY ORDERABLE S Performing Organization Address City/[facility] Co de Phone Number [facility] [place] [address] * (ABNORMAL) Blood Gas, Arterial POC (06/14/2024 12:15 PM EST) pH, Arterial 7.38 7.35 - 7.45 06/14/2024 12:16 PM EST [facility] PCO2, Arterial 40 35 - 45 mmHg 06/14/2024 12:[address] [facility] Bicarbonate, Arterial 22.9 20.0 - 26.0 mmol/L 06/14/2024 12:16 PM EST [facility] Base Excess, Arterial -2.3 [...] MD POINT OF CARE TEST O NIKA [facility] [place] [address] * (ABNORMAL) Blood Gas, Arterial POC (06/14/2024 [...] - 2.2 mmol/L 06/14/2024 11:52 AM EST [facility] IONIZED CALCIUM, ARTERIAL 1.10(L) 1.15 - 1.33 mmol/L 06/14/2024 11:[address] [facility] Glucose, Arterial 148 65 - 199 mg/dL 06/14/2024 11:52 AM EST [facility] Comment:Glucose Concentratio n >=200 mg/dL plus symptoms is consistent with Diabetes Mellitus. Blood ARTERIAL BLOOD / Unknown 06/14/2024 11:51 AM EST 06/14/2024 11:52 AM EST Haja Byrnes MD POINT OF CARE TEST O RDERABLES [facility] [place] [address] * (ABNORMAL) Blood Gas, Arterial POC (06/14/2024 [...] MD POINT OF CARE TEST O RDERABLES [facility] [place] [address] * (ABNORMAL) Scan, Peripheral Blood (06/14/2024 11:23 AM EST) RBC Morphology Abnormal 06/14/2024 11:[address] [facility] Platelet Estimate Decreased(A) Normal 06/14/2024 11:[address] [facility] Aretha cells 1-5 /HPF 06/14/2024 11:59 AM EST [facility] Blood ARTERIAL BLOOD / Unknown 06/14/2024 11:23 AM EST 06/14/2024 11:27 AM EST Bobby Loja MD HEMATOLOGY ORDERABLE S Performing Organization Address City/[facility]/ZIP Co de Phone Number [facility] [place] [address] * (ABNORMAL) Platelet count (06/14/2024 11:23 AM EST) Platelet 86(L) 145 - 357 x10(3)/mcL 06/14/2024 11:59 AM EST [facility] Blood ARTERIAL BLOOD / Unknown 06/14/2024 11:23 AM EST Comment:Pre-op diagnosis: CAD Bobby Loja MD HEMATOLOGY ORDERABLE S Performing Organization Address [facility] Co de Phone Number [facility] [address] * (ABNORMAL) Hemoglobin and Hematocrit, blood (06/14/2024 11:23 AM EST) Hemoglobin 9.8(L) 13.7 - 16.5 g/dL 06/14/2024 11:59 AM EST [facility] Comment:This result has been called to Danielle López by Satya Page on 06/14/2024 11:58:33. Hematocrit 30.5(L) 40.5 - 48.5 % 06/14/2024 11:59 AM EST [facility] Comment:This result has been called to Danielle López by Satya Page on 06/14/2024 11:58:40, and has been read back. Blood ARTERIAL BLOOD / Unknown 06/14/2024 11:23 AM EST 06/14/2024 11:27 AM EST Comment:Pre-op diagnosis: CAD Bobby Loja MD HEMATOLOGY ORDERABLE S [facility] [place] [address] * (ABNORMAL) Blood Gas, Arterial POC (06/14/2024 [...] - 199 mg/dL 06/14/2024 10:59 AM EST [facility] Comment:Glucose Concentratio n >=200 mg/dL plus symptoms is consistent with Diabetes Mellitus. Blood ARTERIAL BLOOD / Unknown 06/14/2024 10:58 AM EST 06/14/2024 10:59 AM EST Haja Byrnes MD POINT OF CARE TEST O RDERABLES [facility] [place] [address] * (ABNORMAL) Blood Gas, Arterial POC (06/14/2024 [...] MD POINT OF CARE TEST O RDERABLES [facility] [place] [address] * (ABNORMAL) Blood Gas, Arterial POC (06/14/2024 [...] MD POINT OF CARE TEST O RDERABLES [facility] [place] [address] * Surgical Pathology (06/14/2024 9:53 AM EST) Case Report Surgical Pathology Report ? Case: [id number] ? Authorizing Provider: ??Bobby Loja MD ? Collected: ? 06/14/2024 0953 ? Ordering Location: ? Main Operating Room [facility] ?? Received: ?06/14/2024 1413 ? [facility] ? [facility] ? Pathologist: ? Sandra Salas [...] Inking: External surface inked black Sections/Process ing: Lithograph Operator sections in 4 cassettes labeled A1-A4. cmk B. Heart, Atrial Appendage, Left, . B - Labeled/Fixative : Heart, atrial appendage, left, fresh. Quantity/Size: Single, 3.3 x 1.5 x 0.8 cm. Tissue Description: Portion of heart tissue consisting of rodriguez-white, semitranslucent, smooth endocardium with rodriguez-brown muscular myocardium and thin translucent epicardium with adherent adipose tissue. No areas of discoloration identified. Sections/Process ing: Lithograph Operator sections in 1 cassette labeled B1. cmk [...] Comment:MARIALUISA Bobby Loja MD PATHOLOGY/CYTOLOGY O RDERABLES [facility] [place] [address] * Cooximetry, POC (06/14/2024 9:00 AM EST) [...] MD POINT OF CARE TEST O RDERABLES [facility] [place] [address] * (ABNORMAL) Blood Gas, Arterial POC (06/14/2024 [...] MD POINT OF CARE TEST O RDERABLES [facility] [place] [address] * Transesophageal Echo/OR (06/14/2024 7:20 AM EST) Anatomical Region Laterality Modality Cardiac Other 06/14/2024 7:20 AM EST Narrative 06/14/2024 4:36 PM EST Version: 2 Study ID: [id number] [address] [place] [address] ?OR Transesophageal Echo Report Name: TYSON GEORGE [...] of this mass after consultation with other motor inspection mechanic experts and the decision was made by [...] MD - 06/14/2024 Version: 2 Study ID: [id number] [address] [place] [address] ORTransesophageal Echo Report Name: GEORGE MEHTA Study [...] of this mass after consultation with other motor inspection mechanic experts and thedecision was made by surgeon [...] - 199 mg/dL 06/14/2024 7:12 AM EST [facility] Comment:Supplemental ranges: <140 mg/dL before meals <180 mg/dL all other times of the day. Blood CAPILLARY BLOOD / Unknown 06/14/2024 7:11 AM EST 06/14/2024 7:12 AM EST Haja Byrnes MD POINT OF CARE TEST O RDERABLES [facility] [place] [address] * POC, GLUCOSE (06/14/2024 4:30 AM EST) Glucometer, POC 85 65 - 199 mg/dL 06/14/2024 4:30 AM EST [facility] Comment:Supplemental ranges: <140 mg/dL before meals <180 mg/dL all other times of the day. Blood CAPILLARY BLOOD / Unknown 06/14/2024 4:30 AM EST 06/14/2024 4:30 AM EST Haja Byrnes MD POINT OF CARE TEST O RDERABLES Performing Organization Address [facility]/ZIP Co de Phone Number [facility] [place] [address] * (ABNORMAL) Heparin (unfractionated) Level (06/14/2024 12:12 AM EST) UF Heparin 1.02(HHH) IU/mL 06/14/2024 12:46 AM EST [facility] Comment: Heparin (anti-Xa) [...] MD HEMATOLOGY ORDERABLE S Performing Organization Address City/[facility]/ZIP Co de Phone Number [facility] [place] [address] * (ABNORMAL) CBC (with Diff) (06/14/2024 12:12 AM EST) White Blood Cell 10.51(H) 4.00 - 9.50 x10(3)/mc L 06/14/2024 12:38 AM EST [facility] Red Blood Cell 4.99 4.58 - 5.54 x10(6)/mc L 06/14/2024 12:38 AM EST [facility] Hemoglobin 14.9 13.7 [...] % 11.2 % 06/14/2024 12:38 AM EST [facility] Monocyte Absolute 1.18(H) 0.30 - 0.90 x10(3)/mc L 06/14/2024 12:[address] [facility] Eos % 3.9 % 06/14/2024 12:[address] [facility] Eos Absolute 0.41(H) 0.00 - 0.40 x10(3)/mc L 06/14/2024 12:38 AM EST [facility] Basophil % 0.8 % [...] EST Shahnaz Scanlon MD HEMATOLOGY ORDERABLE S [facility] [place] [address] * Magnesium (06/14/2024 12:12 AM EST) Magnesium 0.74 0.69 - 1.07 mMol/L 06/14/2024 12:57 AM EST [facility] Blood VENOUS BLOOD SPECIMEN / Unknown Venipuncture / Unknown 06/14/2024 12:12 AM EST 06/14/2024 12:29 AM EST Shahnaz Scanlon MD CHEMISTRY ORDERABLES [facility] [place] [address] * (ABNORMAL) Basic Metabolic Panel (06/14/2024 12:12 [...] Scanlon MD CHEMISTRY ORDERABLES Performing Organization Address [facility] Co de Phone Number [facility] [place] [address] * Scan Doc: Implantable Devices (06/14/2024 12:00 AM EST) Narrative 06/14/2024 12:00 AM EST Ordered by an unspecified provider. Scanning Provider MEDIA MGR SCAN EXT O RDR/RSLT * POC, GLUCOSE (06/13/2024 11:12 PM EST) Glucometer, POC 104 65 - 199 mg/dL 06/13/2024 11:13 PM EST [facility] Comment:Supplemental ranges: <140 mg/dL before meals <180 mg/dL all other times of the day. Blood CAPILLARY BLOOD / Unknown 06/13/2024 11:12 PM EST 06/13/2024 11:13 PM EST Haja Byrnes MD POINT OF CARE TEST O RDERAPIETER Performing Organization Address [facility] Co de Phone Number [facility] [place] [address] * (ABNORMAL) POC, GLUCOSE (06/13/2024 8:03 PM EST) Glucometer, POC 206(H) 65 - 199 mg/dL 06/13/2024 8:03 PM EST [facility] Comment:Supplemental ranges: <140 mg/dL before meals <180 mg/dL all other times of the day. Blood CAPILLARY BLOOD / Unknown 06/13/2024 8:03 PM EST 06/13/2024 8:03 PM EST Haja Byrnes MD POINT OF CARE TEST O RDERABLES Performing Organization Address City/[facility]/ZIP Co de Phone Number [facility] [place] [address] * Heparin (unfractionated) Level (06/13/2024 4:11 PM EST) Pathologist [facility] UF Heparin 0.76 IU/mL 06/13/2024 4:24 PM EST [facility] Comment: Heparin (anti-Xa) [...] MD HEMATOLOGY ORDERABLE S Performing Organization Address City/[facility]/ZIP Co de Phone Number [facility] [place] [address] * ABORH RECHECK (06/13/2024 4:11 PM EST) Pathologist [facility] ABORH Recheck O POSITIVE 06/13/2024 4:50 PM EST [facility] Blood VENOUS BLOOD SPECIMEN / Unknown Venipuncture / Unknown 06/13/2024 4:11 PM EST 06/13/2024 4:19 PM EST Haja Byrnes MD BLOOD BANK LAB ORDER [place] Performing Organization Address City/[facility]/ZIP Co de Phone Number [facility] [place] [address] * (ABNORMAL) POC, GLUCOSE (06/13/2024 4:09 PM EST) [facility] Glucometer, POC 216(H) 65 - 199 mg/dL 06/13/2024 4:10 PM EST [facility] Comment:Supplemental ranges: <140 mg/dL before meals <180 mg/dL all other times of the day. Blood CAPILLARY BLOOD / Unknown 06/13/2024 4:09 PM EST 06/13/2024 4:10 PM EST Haja Byrnes MD POINT OF CARE TEST O RDERABLES [facility] [place] [address] * Type and screen ([facility]/CGP/RAFITA) (06/13/2024 11:53 AM EST) [facility] ABORH Type O POSITIVE 06/13/2024 1:16 PM EST [facility] PATIENT HISTORY Not Found 06/13/2024 1:16 PM EST [facility] Expires at [id number] on: 06/16/2024 06/13/2024 1:16 PM EST [facility] ANTIBODY SCREEN AUTOMATED Negative 06/13/2024 1:16 PM EST [facility] T&S only valid at [facility] 06/13/2024 1:16 PM EST [facility] Blood VENOUS BLOOD SPECIMEN / Unknown Venipuncture / Unknown 06/13/2024 11:53 AM EST 06/13/2024 11:56 AM EST Narrative [facility] - 06/13/2024 1:16 PM EST This Type and Screen result is only valid at the [facility] [facility] Haja Byrnes MD BLOOD BANK LAB ORDER [facility] [place] [address] * POC, GLUCOSE (06/13/2024 11:50 AM EST) Glucometer, POC 178 65 - 199 mg/dL 06/13/2024 11:51 AM EST [facility] Comment:Supplemental ranges: <140 mg/dL before meals <180 mg/dL all other times of the day. Blood CAPILLARY BLOOD / Unknown 06/13/2024 11:50 AM EST 06/13/2024 11:51 AM EST Haja Byrnes MD POINT OF CARE TEST O RDERABLES [facility] [place] [address] * XR Chest One View (06/13/2024 10:35 AM EST) [facility] WORKSTATION ID [id number] RAD Anatomical Region Laterality Modality Chest N/A [...] who have questions please contact the health careers counsellor that requested your imaging first. ? Narrative [...] patients who have questions please contactthe health careers counsellor that requested your imaging first. Haja Byrnes MD IMG DX ORDERABLES * CARDIAC CATHETERIZATION (06/13/2024 9:02 AM EST) Anatomical Region Laterality Modality Other Narrative 06/15/2024 9:07 AM EST ?[facility] ? Cardiac Catheterization/Intervention Report ? Patient Name: Tyson, George L. ? Procedure Date: 06/13/2024 ? A #: [id number] ? Primary Physician: Nuha Shen I ? Case #: [id number] ? File Name: [id number] ? Catheterization Order Number: [id number] ? [facility] ? Final Report [place], [place] ? Patient Name: ? George L. Tyson ? ID#: ?[id number] ? : ?1955 ? Procedure Date: ? June 13, 2024 ?Case #: ? [id number] ? Room: ? 6 ? Case Physician: [...] procedure was Urgent. The indication for ?the clinical laboratory service teacher visit is ACS greater than 24 hrs [...] angiography, vascular ?ultrasound and IABP insertion in clinical laboratory service teacher. ? Nuha Shen M.D. ? Electronically Signed by: Nuha Shen M.D. ? Report Finalized: 06/15/2024 ??08:59 ? Procedure Note Nuha Shen MD - 06/15/2024 [facility] Cardiac Catheterization/Intervention Report Patient Name: George Mehta Procedure Date: 06/13/2024 A #: [id number] Primary Physician: Nuha Shen I Case #: [id number] File Name: [id number] Catheterization Order Number: [id number] [facility] FinalReport [place], [place] Patient Name: George Mehta ID#:[id number] :1955 Procedure Date: June 13, 2024 Case [...] diagnostic procedure was Urgent. The indicationfor the clinical laboratory service teacher visit is ACS greater than 24 hrs [...] site angiography,vascular ultrasound and IABP insertion in clinical laboratory service teacher. Nuha Shen M.D. Electronically Signed by: Nuha Shen M.D. Report Finalized: 06/15/2024 08:59 Nuha Rojo MD CARDIAC CATH ORDERA BLES * Potassium (06/13/2024 7:48 AM EST) Potassium 4.5 3.5 - 5.0 mMol/L 06/13/2024 8:28 AM EST [facility] Blood VENOUS BLOOD SPECIMEN / Unknown Venipuncture / Unknown 06/13/2024 7:48 AM EST 06/13/2024 7:55 AM EST Shahnaz Scanlon MD CHEMISTRY ORDERABLES [facility] [place] [address] * POC, GLUCOSE (06/13/2024 7:41 AM EST) Glucometer, POC 126 65 - 199 mg/dL 06/13/2024 7:41 AM EST [facility] Comment:Supplemental ranges: <140 mg/dL before meals <180 mg/dL all other times of the day. Blood CAPILLARY BLOOD / Unknown 06/13/2024 7:41 AM EST 06/13/2024 7:41 AM EST Ethel Carrillo MD POINT OF CARE TEST O NIKA Performing Organization Address [facility] Co de Phone Number [facility] [place] [address] * POC, GLUCOSE (06/13/2024 3:25 AM EST) Glucometer, POC 99 65 - 199 mg/dL 06/13/2024 3:25 AM EST [facility] Comment:Supplemental ranges: <140 mg/dL before meals <180 mg/dL all other times of the day. Blood CAPILLARY BLOOD / Unknown 06/13/2024 3:25 AM EST 06/13/2024 3:25 AM EST Ethel Carrillo MD POINT OF CARE TEST Abimael MAHER Performing Organization Address [facility] de Phone Number [facility] [place] [address] * Heparin (unfractionated) Level (06/13/2024 2:26 AM EST) [facility] UF Heparin 0.60 IU/mL 06/13/2024 3:32 AM EST [facility] Comment: Heparin (anti-Xa) [...] EST Shahnaz Scanlon MD HEMATOLOGY ORDERABLE S [facility] [place] [address] * (ABNORMAL) CBC (with Diff) (06/13/2024 2:26 [...] 0.04 x10(3)/mc L 06/13/2024 2:41 AM EST [facility] Blood VENOUS BLOOD SPECIMEN / Unknown Venipuncture / Unknown 06/13/2024 2:26 AM EST 06/13/2024 2:32 AM EST Shahnaz Scanlon MD HEMATOLOGY ORDERABLE S Performing Organization Address City/[facility]/ZIP Co de Phone Number [facility] [place] [address] * Magnesium (06/13/2024 2:26 AM EST) Magnesium 0.78 0.69 - 1.07 mMol/L 06/13/2024 2:[address] [facility] Blood VENOUS BLOOD SPECIMEN / Unknown Venipuncture / Unknown 06/13/2024 2:26 AM EST 06/13/2024 2:31 AM EST Shahnaz Scanlon MD CHEMISTRY ORDERABLES Performing Organization Address City/[facility]/ZIP Co de Phone Number [facility] [place] [address] * (ABNORMAL) Basic Metabolic Panel (06/13/2024 2:26 AM EST) Glucose 121 65 - 199 mg/dL 06/13/2024 2:[address] [facility] Comment:Glucose Concentratio n >=200 mg/dL plus symptoms is consistent with Diabetes Mellitus. Blood Urea Nitrogen 21(H) 10 - 20 mg/dL 06/13/2024 2:58 AM EST [facility] Creatinine 1.07 0.80 - [...] - 31 mMol/L 06/13/2024 2:58 AM EST [facility] Anion Gap 10 5 - 15 mMol/L 06/13/2024 2:[address] [facility] Calcium 9.7 8.5 - 10.5 mg/dL 06/13/2024 2:58 AM EST [facility] Est Glomerular Filtration [...] AM EST Shahnaz Scanlon MD CHEMISTRY ORDERABLES [facility] [place] [address] * POC, GLUCOSE (06/12/2024 11:53 PM EST) [facility] Signature Glucometer, POC 141 65 - 199 mg/dL 06/12/2024 11:54 PM EST [facility] Comment:Supplemental ranges: <140 mg/dL before meals <180 mg/dL all other times of the day. Blood CAPILLARY BLOOD / Unknown 06/12/2024 11:53 PM EST 06/12/2024 11:54 PM EST Ethel Carrillo MD POINT OF CARE TEST O RDERABLES [facility] [place] [address] * POC, GLUCOSE (06/12/2024 7:32 PM EST) Glucometer, POC 158 65 - 199 mg/dL 06/12/2024 7:32 PM EST [facility] Comment:Supplemental ranges: <140 mg/dL before meals <180 mg/dL all other times of the day. Blood CAPILLARY BLOOD / Unknown 06/12/2024 7:32 PM EST 06/12/2024 7:32 PM EST Ethel Carrillo MD POINT OF CARE TEST O NIKA Performing Organization Address [facility] de Phone Number [facility] [place] [place] [address] * POC, GLUCOSE (06/12/2024 3:41 PM EST) Glucometer, POC 113 65 - 199 mg/dL 06/12/2024 3:41 PM EST [facility] Comment:Supplemental ranges: <140 mg/dL before meals <180 mg/dL all other times of the day. Blood CAPILLARY BLOOD / Unknown 06/12/2024 3:41 PM EST 06/12/2024 3:41 PM EST Ethel Carrillo MD POINT OF CARE TEST O NIKA Performing Organization Address [facility] Co de Phone Number [facility] [place] [address] * Potassium (06/12/2024 2:19 PM EST) Potassium 4.5 3.5 - 5.0 mMol/L 06/12/2024 2:45 PM EST [facility] Blood VENOUS BLOOD SPECIMEN / Unknown Venipuncture / Unknown 06/12/2024 2:19 PM EST 06/12/2024 2:23 PM EST Shahnaz Scanlon MD CHEMISTRY ORDERABLES Performing Organization Address [facility] Co de Phone Number [facility] [place] [address] * (ABNORMAL) POC, GLUCOSE (06/12/2024 11:21 AM EST) Glucometer, POC 207(H) 65 - 199 mg/dL 06/12/2024 11:21 AM EST [facility] Comment:Supplemental ranges: <140 mg/dL before meals <180 mg/dL all other times of the day. Blood CAPILLARY BLOOD / Unknown 06/12/2024 11:21 AM EST 06/12/2024 11:22 AM EST Ethel Carrillo MD POINT OF CARE TEST O NIKA Performing Organization Address [facility] Co de Phone Number [facility] [place] [address] * POC, GLUCOSE (06/12/2024 8:00 AM EST) Glucometer, POC 169 65 - 199 mg/dL 06/12/2024 8:01 AM EST [facility] Comment:Supplemental ranges: <140 mg/dL before meals <180 mg/dL all other times of the day. Blood CAPILLARY BLOOD / Unknown 06/12/2024 8:00 AM EST 06/12/2024 8:01 AM EST Ethel Carrillo MD POINT OF CARE TEST O NIKA Performing Organization Address [facility] Co de Phone Number [facility] [place] [address] * POC, GLUCOSE (06/12/2024 4:25 AM EST) Glucometer, POC 132 65 - 199 mg/dL 06/12/2024 4:26 AM EST [facility] Comment:Supplemental ranges: <140 mg/dL before meals <180 mg/dL all other times of the day. Blood CAPILLARY BLOOD / Unknown 06/12/2024 4:25 AM EST 06/12/2024 4:26 AM EST Ethel Carrillo MD POINT OF CARE TEST O RDERABLES Performing Organization Address [facility] Co de Phone Number [facility] [address] * Heparin (unfractionated) Level (06/12/2024 3:03 AM EST) UF Heparin 0.55 IU/mL 06/12/2024 3:44 AM EST [facility] Comment: Heparin (anti-Xa) [...] MD HEMATOLOGY ORDERABLE S Performing Organization Address City/[facility]/ZIP Co de Phone Number [facility] [place] [address] * (ABNORMAL) CBC (with Diff) (06/12/2024 3:03 AM EST) White Blood Cell 9.69(H) 4.00 - 9.50 x10(3)/mc L 06/12/2024 3:36 AM EST [facility] Red Blood Cell 5.05 [...] EST Shahnaz Scanlon MD HEMATOLOGY ORDERABLE S [facility] [place] [address] * Magnesium (06/12/2024 3:03 AM EST) Magnesium 0.79 0.69 - 1.07 mMol/L 06/12/2024 4:[address] [facility] Blood VENOUS BLOOD SPECIMEN / Unknown Venipuncture / Unknown 06/12/2024 3:03 AM EST 06/12/2024 3:30 AM EST Shahnaz Scanlon MD CHEMISTRY ORDERABLES [facility] [place] [address] * (ABNORMAL) Basic Metabolic Panel (06/12/2024 3:03 [...] Scanlon MD CHEMISTRY ORDERABLES Performing Organization Address [facility]/ZIP Co de Phone Number [facility] [place] [address] * POC, GLUCOSE (06/11/2024 11:56 PM EST) Glucometer, POC 135 65 - 199 mg/dL 06/11/2024 11:56 PM EST [facility] Comment:Supplemental ranges: <140 mg/dL before meals <180 mg/dL all other times of the day. Blood CAPILLARY BLOOD / Unknown 06/11/2024 11:56 PM EST 06/11/2024 11:56 PM EST Ethel Carrillo MD POINT OF CARE TEST O NIKA Performing Organization Address [facility] de Phone Number [facility] [place] [address] * (ABNORMAL) POC, GLUCOSE (06/11/2024 8:25 PM EST) Glucometer, POC 210(H) 65 - 199 mg/dL 06/11/2024 8:26 PM EST [facility] Comment:Supplemental ranges: <140 mg/dL before meals <180 mg/dL all other times of the day. Blood CAPILLARY BLOOD / Unknown 06/11/2024 8:25 PM EST 06/11/2024 8:26 PM EST Ethel Carrillo MD POINT OF CARE TEST O RDBECKIE Performing Organization Address City/[facility]/ZIP Co de Phone Number [facility] [place] [address] * POC, GLUCOSE (06/11/2024 4:24 PM EST) Glucometer, POC 81 65 - 199 mg/dL 06/11/2024 4:24 PM EST [facility] Comment:Supplemental ranges: <140 mg/dL before meals <180 mg/dL all other times of the day. Blood CAPILLARY BLOOD / Unknown 06/11/2024 4:24 PM EST 06/11/2024 4:25 PM EST Ethel Carrillo MD POINT OF CARE TEST O RDERAPIETER Performing Organization Address [facility] Co de Phone Number [facility] [place] [address] * (ABNORMAL) POC, GLUCOSE (06/11/2024 11:08 AM EST) Glucometer, POC 233(H) 65 - 199 mg/dL 06/11/2024 11:08 AM EST [facility] Comment:Supplemental ranges: <140 mg/dL before meals <180 mg/dL all other times of the day. Blood CAPILLARY BLOOD / Unknown 06/11/2024 11:08 AM EST 06/11/2024 11:08 AM EST Ethel Carrillo MD POINT OF CARE TEST O NIKA Performing Organization Address [facility] Co de Phone Number [facility] [place] [address] * POC, GLUCOSE (06/11/2024 7:48 AM EST) Glucometer, POC 184 65 - 199 mg/dL 06/11/2024 7:49 AM EST [facility] Comment:Supplemental ranges: <140 mg/dL before meals <180 mg/dL all other times of the day. Blood CAPILLARY BLOOD / Unknown 06/11/2024 7:48 AM EST 06/11/2024 7:49 AM EST Melida Valdes MD POINT OF CARE TEST O RDERABLES [facility] [place] [address] * Heparin (unfractionated) Level (06/11/2024 5:31 AM EST) UF Heparin 0.55 IU/mL 06/11/2024 6:10 AM EST [facility] Comment: Heparin (anti-Xa) [...] EST Shahnaz Scanlon MD HEMATOLOGY ORDERABLE S [facility] [place] [address] * POC, GLUCOSE (06/11/2024 3:57 AM EST) [facility] Glucometer, POC 132 65 - 199 mg/dL 06/11/2024 3:58 AM EST [facility] Comment:Supplemental ranges: <140 mg/dL before meals <180 mg/dL all other times of the day. Blood CAPILLARY BLOOD / Unknown 06/11/2024 3:57 AM EST 06/11/2024 3:58 AM EST Melida Valdes MD POINT OF CARE TEST O RDERABLES [facility] [address] * (ABNORMAL) CBC (with Diff) (06/11/2024 2:13 [...] EST Shahnaz Scanlon MD HEMATOLOGY ORDERABLE S [facility] [place] [address] * Magnesium (06/11/2024 2:13 AM EST) Pathologist [facility] Magnesium 0.83 0.69 - 1.07 mMol/L 06/11/2024 2:[address] [facility] Blood VENOUS BLOOD SPECIMEN / Unknown Venipuncture / Unknown 06/11/2024 2:13 AM EST 06/11/2024 2:19 AM EST Shahnaz Scanlon MD CHEMISTRY ORDERABLES Performing Organization Address City/[facility]/ZIP Co de Phone Number [facility] [place] [address] * (ABNORMAL) Basic Metabolic Panel (06/11/2024 2:13 AM EST) [facility] Glucose 148 65 - 199 mg/dL 06/11/2024 [...] - 10.5 mg/dL 06/11/2024 2:51 AM EST [facility] Est Glomerular Filtration Rate - Male 77 mL/min/1. 73 m?? 06/11/2024 2:51 AM EST [facility] Comment: This patient's [...] Scanlon MD CHEMISTRY ORDERABLES Performing Organization Address City/[facility]/ZIP Co de Phone Number [facility] [place] [address] * POC, GLUCOSE (06/11/2024 12:50 AM EST) Glucometer, POC 144 65 - 199 mg/dL 06/11/2024 12:51 AM EST [facility] Comment:Supplemental ranges: <140 mg/dL before meals <180 mg/dL all other times of the day. Blood CAPILLARY BLOOD / Unknown 06/11/2024 12:50 AM EST 06/11/2024 12:51 AM EST Melida Valdes MD POINT OF CARE TEST O RDERABLES Performing Organization Address City/[facility]/ZIP Co de Phone Number [facility] [place] [address] * (ABNORMAL) POC, GLUCOSE (06/10/2024 7:22 PM EST) Glucometer, POC 236(H) 65 - 199 mg/dL 06/10/2024 7:[address] [facility] Comment:Supplemental ranges: <140 mg/dL before meals <180 mg/dL all other times of the day. Blood CAPILLARY BLOOD / Unknown 06/10/2024 7:22 PM EST 06/10/2024 7:22 PM EST Melida Valdes MD POINT OF CARE TEST O NIKA [facility] [address] * (ABNORMAL) Blood Gas, Venous (06/10/2024 5:42 [...] PM EST Melida Valdes MD CHEMISTRY ORDERABLES [facility] [place] [address] * POC, GLUCOSE (06/10/2024 5:35 PM EST) [facility] Signature Glucometer, POC 123 65 - 199 mg/dL 06/10/2024 5:35 PM EST [facility] Comment:Supplemental ranges: <140 mg/dL before meals <180 mg/dL all other times of the day. Blood CAPILLARY BLOOD / Unknown 06/10/2024 5:35 PM EST 06/10/2024 5:35 PM EST Melida Valdes MD POINT OF CARE TEST O RDERABLES [facility] [address] * (ABNORMAL) POC, GLUCOSE (06/10/2024 11:25 AM EST) Glucometer, POC 216(H) 65 - 199 mg/dL 06/10/2024 11:25 AM EST [facility] Comment:Supplemental ranges: <140 mg/dL before meals <180 mg/dL all other times of the day. Blood CAPILLARY BLOOD / Unknown 06/10/2024 11:25 AM EST 06/10/2024 11:25 AM EST Melida Valdes MD POINT OF CARE TEST O NIKA Performing Organization Address City/[facility]/ZIP Co de Phone Number [facility] [place] [address] * (ABNORMAL) POC, GLUCOSE (06/10/2024 7:46 AM EST) Glucometer, POC 206(H) 65 - 199 mg/dL 06/10/2024 7:46 AM EST [facility] Comment:Supplemental ranges: <140 mg/dL before meals <180 mg/dL all other times of the day. Blood CAPILLARY BLOOD / Unknown 06/10/2024 7:46 AM EST 06/10/2024 7:46 AM EST Melida Valdes MD POINT OF CARE TEST O NIKA [facility] [place] [address] * POC, GLUCOSE (06/10/2024 4:23 AM EST) Glucometer, POC 154 65 - 199 mg/dL 06/10/2024 4:24 AM EST [facility] Comment:Supplemental ranges: <140 mg/dL before meals <180 mg/dL all other times of the day. Blood CAPILLARY BLOOD / Unknown 06/10/2024 4:23 AM EST 06/10/2024 4:24 AM EST Melida Valdes MD POINT OF CARE TEST O RDERABLES [facility] [address] * (ABNORMAL) CBC (with Diff) (06/10/2024 1:55 [...] EST Shahnaz Scanlon MD HEMATOLOGY ORDERABLE S [facility] [address] * Magnesium (06/10/2024 1:55 AM EST) Pathologist [facility] Magnesium 0.83 0.69 - 1.07 mMol/L 06/10/2024 2:[address] [facility] Blood VENOUS BLOOD SPECIMEN / Unknown Venipuncture / Unknown 06/10/2024 1:55 AM EST 06/10/2024 2:05 AM EST Shahnaz Scanlon MD CHEMISTRY ORDERABLES Performing Organization Address City/[facility]/ZIP Co de Phone Number [facility] [place] [address] * (ABNORMAL) Basic Metabolic Panel (06/10/2024 1:55 AM EST) [facility] Glucose 140 65 - 199 mg/dL 06/10/2024 [...] - 10.5 mg/dL 06/10/2024 2:37 AM EST [facility] Est Glomerular Filtration Rate - Male 77 mL/min/1. 73 m?? 06/10/2024 2:37 AM EST [facility] Comment: This patient's [...] AM EST Shahnaz Scanlon MD CHEMISTRY ORDERABLES [facility] [place] [phone] * Heparin (unfractionated) Level (06/10/2024 1:54 AM EST) UF Heparin 0.56 IU/mL 06/10/2024 2:41 AM EST [facility] Comment: Heparin (anti-Xa) [...] MD HEMATOLOGY ORDERABLE S Performing Organization Address City/[facility]/ZIP Co de Phone Number [facility] [place] [address] * POC, GLUCOSE (06/10/2024 12:05 AM EST) Glucometer, POC 125 65 - 199 mg/dL 06/10/2024 12:05 AM EST [facility] Comment:Supplemental ranges: <140 mg/dL before meals <180 mg/dL all other times of the day. Blood CAPILLARY BLOOD / Unknown 06/10/2024 12:05 AM EST 06/10/2024 12:05 AM EST Melida Valdes MD POINT OF CARE TEST Abimael MAHER Performing Organization Address [facility] Co de Phone Number [facility] [place] [address] * POC, GLUCOSE (06/09/2024 8:36 PM EST) Glucometer, POC 197 65 - 199 mg/dL 06/09/2024 8:36 PM EST [facility] Comment:Supplemental ranges: <140 mg/dL before meals <180 mg/dL all other times of the day. Blood CAPILLARY BLOOD / Unknown 06/09/2024 8:36 PM EST 06/09/2024 8:36 PM EST Melida Valdes MD POINT OF CARE TEST O NIKA [facility] [address] * POC, GLUCOSE (06/09/2024 5:27 PM EST) Glucometer, POC 174 65 - 199 mg/dL 06/09/2024 5:28 PM EST [facility] Comment:Supplemental ranges: <140 mg/dL before meals <180 mg/dL all other times of the day. Blood CAPILLARY BLOOD / Unknown 06/09/2024 5:27 PM EST 06/09/2024 5:28 PM EST Melida Valdes MD POINT OF CARE TEST O NIKA [facility] [address] * (ABNORMAL) POC, GLUCOSE (06/09/2024 11:52 AM EST) Glucometer, POC 211(H) 65 - 199 mg/dL 06/09/2024 11:52 AM EST [facility] Comment:Supplemental ranges: <140 mg/dL before meals <180 mg/dL all other times of the day. Blood CAPILLARY BLOOD / Unknown 06/09/2024 11:52 AM EST 06/09/2024 11:52 AM EST Melida Valdes MD POINT OF CARE TEST O NIKA Performing Organization Address City/[facility]/ZIP Co de Phone Number [facility] [place] [address] * Potassium (06/09/2024 8:25 AM EST) Pathologist [facility] Potassium 4.6 3.5 - 5.0 mMol/L 06/09/2024 10:09 AM EST [facility] Blood VENOUS BLOOD SPECIMEN / Unknown Venipuncture / Unknown 06/09/2024 8:25 AM EST 06/09/2024 8:42 AM EST Shahnaz Scanlon MD CHEMISTRY ORDERABLES [facility] [place] [address] * (ABNORMAL) POC, GLUCOSE (06/09/2024 8:10 AM EST) Glucometer, POC 209(H) 65 - 199 mg/dL 06/09/2024 8:10 AM EST [facility] Comment:Supplemental ranges: <140 mg/dL before meals <180 mg/dL all other times of the day. Blood CAPILLARY BLOOD / Unknown 06/09/2024 8:10 AM EST 06/09/2024 8:11 AM EST Melida Valdes MD POINT OF CARE TEST O NIKA Performing Organization Address [facility] Co de Phone Number [facility] [place] [address] * POC, GLUCOSE (06/09/2024 4:40 AM EST) Glucometer, POC 131 65 - 199 mg/dL 06/09/2024 4:40 AM EST [facility] Comment:Supplemental ranges: <140 mg/dL before meals <180 mg/dL all other times of the day. Blood CAPILLARY BLOOD / Unknown 06/09/2024 4:40 AM EST 06/09/2024 4:41 AM EST Melida Valdes MD POINT OF CARE TEST Abimael MAHER Performing Organization Address [facility] Co de Phone Number [facility] [place] [address] * Heparin (unfractionated) Level (06/09/2024 2:12 AM EST) UF Heparin 0.55 IU/mL 06/09/2024 2:33 AM EST [facility] Comment: Heparin (anti-Xa) [...] EST Shahnaz Scanlon MD HEMATOLOGY ORDERABLE S [facility] [place] [address] * (ABNORMAL) CBC (with Diff) (06/09/2024 2:12 [...] Gran % 0.6 % 2:44 AM EST [facility] Immature Gran Absolute 0.06(H) 0.00 - 0.04 x10(3)/mc L 06/09/2024 2:[address] [facility] Blood VENOUS BLOOD SPECIMEN / Unknown Venipuncture / Unknown 06/09/2024 2:12 AM EST 06/09/2024 2:21 AM EST Shahnaz Scanlon MD HEMATOLOGY ORDERABLE S Performing Organization Address [facility] Co de Phone Number [facility] [place] [address] * Magnesium (06/09/2024 2:12 AM EST) Magnesium 0.83 0.69 - 1.07 mMol/L 06/09/2024 2:[address] [facility] Blood VENOUS BLOOD SPECIMEN / Unknown Venipuncture / Unknown 06/09/2024 2:12 AM EST 06/09/2024 2:22 AM EST Shahnaz Scanlon MD CHEMISTRY ORDERABLES Performing Organization Address [facility] Co de Phone Number [facility] [place] [address] * (ABNORMAL) Basic Metabolic Panel (06/09/2024 2:12 [...] - 5.0 mMol/L 06/09/2024 2:52 AM EST [facility] Chloride 98 98 - [...] AM EST Shahnaz Scanlon MD CHEMISTRY ORDERABLES [facility] [place] [address] * POC, GLUCOSE (06/09/2024 12:34 AM EST) Glucometer, POC 186 65 - 199 mg/dL 06/09/2024 12:[address] [facility] Comment:Supplemental ranges: <140 mg/dL before meals <180 mg/dL all other times of the day. Blood CAPILLARY BLOOD / Unknown 06/09/2024 12:34 AM EST 06/09/2024 12:34 AM EST Melida Valdes MD POINT OF CARE TEST O NIKA Performing Organization Address City/[facility]/ZIP Co de Phone Number [facility] [place] [address] * POC, GLUCOSE (06/08/2024 8:27 PM EST) Glucometer, POC 176 65 - 199 mg/dL 06/08/2024 8:28 PM EST [facility] Comment:Supplemental ranges: <140 mg/dL before meals <180 mg/dL all other times of the day. Blood CAPILLARY BLOOD / Unknown 06/08/2024 8:27 PM EST 06/08/2024 8:28 PM EST Melida Valdes MD POINT OF CARE TEST O NIKA Performing Organization Address [facility] Co de Phone Number [facility] [place] [address] * POC, GLUCOSE (06/08/2024 4:16 PM EST) Glucometer, POC 159 65 - 199 mg/dL 06/08/2024 4:16 PM EST [facility] Comment:Supplemental ranges: <140 mg/dL before meals <180 mg/dL all other times of the day. Blood CAPILLARY BLOOD / Unknown 06/08/2024 4:16 PM EST 06/08/2024 4:16 PM EST Melida Valdes MD POINT OF CARE TEST O NIKA Performing Organization Address City/[facility] Co de Phone Number [facility] [place] [address] * (ABNORMAL) POC, GLUCOSE (06/08/2024 12:35 PM EST) Glucometer, POC 226(H) 65 - 199 mg/dL 06/08/2024 12:35 PM EST [facility] Comment:Supplemental ranges: <140 mg/dL before meals <180 mg/dL all other times of the day. Blood CAPILLARY BLOOD / Unknown 06/08/2024 12:35 PM EST 06/08/2024 12:35 PM EST Melida Valdes MD POINT OF CARE TEST O NIKA Performing Organization Address City/[facility] Co de Phone Number [facility] [place] [address] * POC, GLUCOSE (06/08/2024 8:10 AM EST) Glucometer, POC 190 65 - 199 mg/dL 06/08/2024 8:14 AM EST [facility] Comment:Supplemental ranges: <140 mg/dL before meals <180 mg/dL all other times of the day. Blood CAPILLARY BLOOD / Unknown 06/08/2024 8:10 AM EST 06/08/2024 8:14 AM EST Melida Valdes MD POINT OF CARE TEST O NIKA Performing Organization Address [facility] Co de Phone Number [facility] [place] [address] * POC, GLUCOSE (06/08/2024 4:09 AM EST) Glucometer, POC 151 65 - 199 mg/dL 06/08/2024 4:10 AM EST [facility] Comment:Supplemental ranges: <140 mg/dL before meals <180 mg/dL all other times of the day. Blood CAPILLARY BLOOD / Unknown 06/08/2024 4:09 AM EST 06/08/2024 4:10 AM EST Melida Valdes MD POINT OF CARE TEST O NIKA Performing Organization Address City/[facility] Co de Phone Number [facility] [place] [address] * Heparin (unfractionated) Level (06/08/2024 3:21 AM [...] MD HEMATOLOGY ORDERABLE S Performing Organization Address City/State/[facility] Co de Phone Number [facility] [place] [address] * (ABNORMAL) CBC (with Diff) (06/08/2024 3:21 [...] 0.40 x10(3)/mc L 06/08/2024 3:34 AM EST [facility] Basophil % 0.8 % [...] EST Shahnaz Scanlon MD HEMATOLOGY ORDERABLE S [facility] [place] [address] * Magnesium (06/08/2024 3:21 AM EST) Magnesium 0.84 0.69 - 1.07 mMol/L 06/08/2024 3:[address] [facility] Blood VENOUS BLOOD SPECIMEN / Unknown Venipuncture / Unknown 06/08/2024 3:21 AM EST 06/08/2024 3:27 AM EST Shahnaz Scanlon MD CHEMISTRY ORDERABLES [facility] [place] [address] * (ABNORMAL) Basic Metabolic Panel (06/08/2024 3:21 AM EST) Glucose 173 65 - 199 mg/dL 06/08/2024 3:59 AM EST [facility] Comment:Glucose Concentratio n [...] AM EST Shahnaz Scanlon MD CHEMISTRY ORDERABLES [facility] [place] [address] * POC, GLUCOSE (06/07/2024 11:57 PM EST) Glucometer, POC 188 65 - 199 mg/dL 06/07/2024 11:57 PM EST [facility] Comment:Supplemental ranges: <140 mg/dL before meals <180 mg/dL all other times of the day. Blood CAPILLARY BLOOD / Unknown 06/07/2024 11:57 PM EST 06/07/2024 11:58 PM EST Melida Valdes MD POINT OF CARE TEST O RDERABLES Performing Organization Address City/[facility]/ZIP Co de Phone Number [facility] [place] [address] * POC, GLUCOSE (06/07/2024 8:05 PM EST) Glucometer, POC 118 65 - 199 mg/dL 06/07/2024 8:06 PM EST [facility] Comment:Supplemental ranges: <140 mg/dL before meals <180 mg/dL all other times of the day. Blood CAPILLARY BLOOD / Unknown 06/07/2024 8:05 PM EST 06/07/2024 8:06 PM EST Melida Valdes MD POINT OF CARE TEST O RDERAPIETER Performing Organization Address City/[facility]/ZIP Co de Phone Number [facility] [place] [address] * Potassium (06/07/2024 5:22 PM EST) Potassium 4.6 3.5 - 5.0 mMol/L 06/07/2024 5:59 PM EST [facility] Blood VENOUS BLOOD SPECIMEN / Unknown Venipuncture / Unknown 06/07/2024 5:22 PM EST 06/07/2024 5:26 PM EST Shahnaz Scanlon MD CHEMISTRY ORDERABLES [facility] [place] [address] * POC, GLUCOSE (06/07/2024 4:31 PM EST) Glucometer, POC 174 65 - 199 mg/dL 06/07/2024 4:34 PM EST [facility] Comment:Supplemental ranges: <140 mg/dL before meals <180 mg/dL all other times of the day. Blood CAPILLARY BLOOD / Unknown 06/07/2024 4:31 PM EST 06/07/2024 4:34 PM EST Melida Valdes MD POINT OF CARE TEST O NIKA [facility] [place] [address] * MRI Cardiac Morphology Function wwo Contrast (06/07/2024 1:10 PM EST) WORKSTATION ID [id number] DH RAD Anatomical Region Laterality Modality Magnetic [...] - Mildly dilated left ventricle size with hdyysiwv-nr-bqihchpi decreased LV systolic function. ??LV ejection fraction [...] who have questions please contact the health careers counsellor that requested your imaging first. ? Electronically signed by: Kriss Alonzo MD, [facility] ([phone]), at 06/07/2024 2:41 PM Narrative 06/07/2024 2:41 [...] VENTRICLE: Mildly dilated left ventricle size with owdstazu-gb-alhhjosf decreased LV systolic function. ??LV ejection fraction [...] VENTRICLE: Mildly dilated left ventricle size with udornwjj-iz-ddzzsyak decreasedLV systolic function. LV ejection fraction is [...] - Mildly dilated left ventricle size with jokrahre-xc-fokwzgfd decreasedLV systolic function. LV ejection fraction is [...] patients who have questions please contactthe health careers counsellor that requested your imaging first. Electronically signed by: Kriss Alonzo MD, [facility]([phone]), at 06/07/2024 2:41 PM Delroy Fofana MD IMG MRI ORDERABLES * (ABNORMAL) POC, GLUCOSE (06/07/2024 11:05 AM EST) Glucometer, POC 221(H) 65 - 199 mg/dL 06/07/2024 11:06 AM EST [facility] Comment:Supplemental ranges: <140 mg/dL before meals <180 mg/dL all other times of the day. Blood CAPILLARY BLOOD / Unknown 06/07/2024 11:05 AM EST 06/07/2024 11:06 AM EST Melida Valdes MD POINT OF CARE TEST O NIKA [facility] [place] [address] * (ABNORMAL) POC, GLUCOSE (06/07/2024 11:03 AM EST) Glucometer, POC 250(H) 65 - 199 mg/dL 06/07/2024 11:04 AM EST [facility] Comment:Supplemental ranges: <140 mg/dL before meals <180 mg/dL all other times of the day. Blood CAPILLARY BLOOD / Unknown 06/07/2024 11:03 AM EST 06/07/2024 11:04 AM EST Melida Valdes MD POINT OF CARE TEST Abimael MAHER [facility] [place] [address] * Potassium (06/07/2024 9:44 AM EST) Potassium 4.7 3.5 - 5.0 mMol/L 06/07/2024 10:23 AM EST [facility] Blood VENOUS BLOOD SPECIMEN / Unknown Venipuncture / Unknown 06/07/2024 9:44 AM EST 06/07/2024 9:57 AM EST Shahnaz Scanlon MD CHEMISTRY ORDERABLES Performing Organization Address [facility] Co de Phone Number [facility] [place] [address] * POC, GLUCOSE (06/07/2024 7:45 AM EST) Glucometer, POC 175 65 - 199 mg/dL 06/07/2024 7:45 AM EST [facility] Comment:Supplemental ranges: <140 mg/dL before meals <180 mg/dL all other times of the day. Blood CAPILLARY BLOOD / Unknown 06/07/2024 7:45 AM EST 06/07/2024 7:46 AM EST Melida Valdes MD POINT OF CARE TEST O RDERABLES Performing Organization Address [facility] de Phone Number [facility] [place] [address] * XR Chest PA & Lateral (Generic) (06/07/2024 7:03 AM EST) WORKSTATION ID [id number] DH RAD Anatomical Region Laterality Modality Chest [...] who have questions please contact the health careers counsellor that requested your imaging first. ? Electronically signed by: Stuart Aponte MD, [facility] ??([phone]), at 06/07/2024 10:45 AM Narrative 06/07/2024 10:45 [...] patients who have questions please contactthe health careers counsellor that requested your imaging first. Electronically signed by: Stuart Aponte MD, [facility]([phone]), at 06/07/2024 10:45 AM Shahnaz Scanlon MD IMG DX ORDERABLES * POC, GLUCOSE (06/07/2024 4:25 AM EST) [facility] Glucometer, POC 127 65 - 199 mg/dL 06/07/2024 4:26 AM EST [facility] Comment:Supplemental ranges: <140 mg/dL before meals <180 mg/dL all other times of the day. Blood CAPILLARY BLOOD / Unknown 06/07/2024 4:25 AM EST 06/07/2024 4:26 AM EST Melida Valdes MD POINT OF CARE TEST O RDERABLES Performing Organization Address [facility]/ZIP Co de Phone Number [facility] [place] [address] * Heparin (unfractionated) Level (06/07/2024 2:41 AM EST) UF Heparin 0.45 IU/mL 06/07/2024 3:03 AM EST [facility] Comment: Heparin (anti-Xa) [...] MD HEMATOLOGY ORDERABLE S Performing Organization Address City/[facility]/ZIP Co de Phone Number [facility] [place] [address] * (ABNORMAL) CBC (with Diff) (06/07/2024 2:41 AM EST) White Blood Cell 10.06(H) 4.00 - 9.50 x10(3)/mc L 06/07/2024 2:58 AM EST [facility] Red Blood Cell 5.02 [...] 3.20 x10(3)/mc L 06/07/2024 2:58 AM EST [facility] Monocyte % 10.8 % 06/07/2024 2:[address] [facility] Monocyte Absolute 1.09(H) 0.30 - 0.90 x10(3)/mc L 06/07/2024 2:58 AM EST [facility] Eos % 3.6 % 06/07/2024 2:58 AM EST [facility] Eos Absolute 0.36 0.00 - 0.40 x10(3)/mc L 06/07/2024 2:58 AM EST [facility] Basophil % 0.8 % [...] EST Shahnaz Scanlon MD HEMATOLOGY ORDERABLE S [facility] [place] [address] * Magnesium (06/07/2024 2:41 AM EST) Magnesium 0.92 0.69 - 1.07 mMol/L 06/07/2024 3:25 AM EST [facility] Blood VENOUS BLOOD SPECIMEN / Unknown Venipuncture / Unknown 06/07/2024 2:41 AM EST 06/07/2024 2:51 AM EST Shahnaz Scanlon MD CHEMISTRY ORDERABLES [facility] [address] * (ABNORMAL) Basic Metabolic Panel (06/07/2024 2:41 [...] mL/min/1. 73 m?? 06/07/2024 3:25 AM EST [facility] Comment: This patient's [...] Scanlon MD CHEMISTRY ORDERABLES Performing Organization Address [facility] Co de Phone Number [facility] [place] [address] * POC, GLUCOSE (06/07/2024 12:08 AM EST) Glucometer, POC 182 65 - 199 mg/dL 06/07/2024 12:09 AM EST [facility] Comment:Supplemental ranges: <140 mg/dL before meals <180 mg/dL all other times of the day. Blood CAPILLARY BLOOD / Unknown 06/07/2024 12:08 AM EST 06/07/2024 12:09 AM EST Melida Valdes MD POINT OF CARE TEST O RDBECKIE Performing Organization Address [facility] Co de Phone Number [facility] [place] [address] * POC, GLUCOSE (06/06/2024 8:18 PM EST) Glucometer, POC 143 65 - 199 mg/dL 06/06/2024 8:19 PM EST [facility] Comment:Supplemental ranges: <140 mg/dL before meals <180 mg/dL all other times of the day. Blood CAPILLARY BLOOD / Unknown 06/06/2024 8:18 PM EST 06/06/2024 8:19 PM EST Melida Valdes MD POINT OF CARE TEST O RDERAPIETER Performing Organization Address [facility] Co de Phone Number [facility] [place] [address] * POC, GLUCOSE (06/06/2024 3:39 PM EST) Glucometer, POC 147 65 - 199 mg/dL 06/06/2024 3:40 PM EST [facility] Comment:Supplemental ranges: <140 mg/dL before meals <180 mg/dL all other times of the day. Blood CAPILLARY BLOOD / Unknown 06/06/2024 3:39 PM EST 06/06/2024 3:40 PM EST Melida Valdes MD POINT OF CARE TEST O RDERABLES Performing Organization Address City/[facility] Co de Phone Number [facility] [place] [address] * Potassium (06/06/2024 2:37 PM EST) Potassium 4.3 3.5 - 5.0 mMol/L 06/06/2024 3:01 PM EST [facility] Blood VENOUS BLOOD SPECIMEN / Unknown Venipuncture / Unknown 06/06/2024 2:37 PM EST 06/06/2024 2:42 PM EST Shahnaz Scanlon MD CHEMISTRY ORDERABLES Performing Organization Address [facility] Co de Phone Number [facility] [place] [address] * (ABNORMAL) POC, GLUCOSE (06/06/2024 1:39 PM EST) Glucometer, POC 317(H) 65 - 199 mg/dL 06/06/2024 1:40 PM EST [facility] Comment:Supplemental ranges: <140 mg/dL before meals <180 mg/dL all other times of the day. Blood CAPILLARY BLOOD / Unknown 06/06/2024 1:39 PM EST 06/06/2024 1:41 PM EST Melida Valdes MD POINT OF CARE TEST O RDERABLES Performing Organization Address City/[facility]/ZIP Co de Phone Number [facility] [address] * (ABNORMAL) POC, GLUCOSE (06/06/2024 11:34 AM EST) Glucometer, POC 264(H) 65 - 199 mg/dL 06/06/2024 11:35 AM EST [facility] Comment:Supplemental ranges: <140 mg/dL before meals <180 mg/dL all other times of the day. Blood CAPILLARY BLOOD / Unknown 06/06/2024 11:34 AM EST 06/06/2024 11:35 AM EST Melida Valdes MD POINT OF CARE TEST O NIKA Performing Organization Address [facility] Co de Phone Number [facility] [place] [address] * Potassium (06/06/2024 10:17 AM EST) Potassium 4.3 3.5 - 5.0 mMol/L 06/06/2024 10:46 AM EST [facility] Blood VENOUS BLOOD SPECIMEN / Unknown Venipuncture / Unknown 06/06/2024 10:17 AM EST 06/06/2024 10:22 AM EST Shahnaz Scanlon MD CHEMISTRY ORDERABLES Performing Organization Address [facility] de Phone Number [facility] [place] [address] * POC, GLUCOSE (06/06/2024 7:57 AM EST) Glucometer, POC 195 65 - 199 mg/dL 06/06/2024 8:03 AM EST [facility] Comment:Supplemental ranges: <140 mg/dL before meals <180 mg/dL all other times of the day. Blood CAPILLARY BLOOD / Unknown 06/06/2024 7:57 AM EST 06/06/2024 8:03 AM EST Melida Valdes MD POINT OF CARE TEST O NIKA Performing Organization Address City/[facility]/ZIP Co de Phone Number [facility] [place] [address] * POC, GLUCOSE (06/06/2024 6:53 AM EST) Glucometer, POC 187 65 - 199 mg/dL 06/06/2024 6:53 AM EST [facility] Comment:Supplemental ranges: <140 mg/dL before meals <180 mg/dL all other times of the day. Blood CAPILLARY BLOOD / Unknown 06/06/2024 6:53 AM EST 06/06/2024 6:54 AM EST Melida Valdes MD POINT OF CARE TEST O RDERABLES Performing Organization Address City/[facility] Co de Phone Number [facility] [address] * (ABNORMAL) Hemoglobin A1c (06/06/2024 3:33 AM EST) [facility] Hemoglobin A1c 7.1(H) 4.3 - 5.6 % 06/06/2024 1:01 PM EST [facility] Comment: Per ADA [...] red blood cell turnover may not be retail sales representative of glycemic control. Reference Interval: 4.3 - 5.6% 5.7 - 6.4%: Consistent with prediabetes >=6.5%: Consistent with diagnosis of diabetes mellitus Estimated Average Glucose 157 mg/dL 06/06/2024 1:01 PM EST [facility] Blood VENOUS BLOOD SPECIMEN / Unknown Venipuncture / Unknown 06/06/2024 3:33 AM EST 06/06/2024 3:48 AM EST Alejandra G Bronaugh [employer] CHEMISTRY ORDERAB LES Performing Organization Address [facility]/ZIP Co de Phone Number [facility] [place] [address] * Heparin (unfractionated) Level (06/06/2024 3:33 AM EST) UF Heparin 0.36 IU/mL 06/06/2024 3:59 AM EST [facility] Comment: Heparin (anti-Xa) [...] MD HEMATOLOGY ORDERABLE S Performing Organization Address City/[facility]/ZIP Co de Phone Number [facility] [place] [address] * (ABNORMAL) CBC (with Diff) (06/06/2024 3:33 AM EST) White Blood Cell 9.81(H) 4.00 - 9.50 x10(3)/mc L 06/06/2024 3:54 AM EST [facility] Red Blood Cell 4.91 4.58 - 5.54 x10(6)/mc L 06/06/2024 3:54 AM EST [facility] Hemoglobin 14.6 13.7 - [...] % 11.1 % 06/06/2024 3:54 AM EST [facility] Monocyte Absolute 1.09(H) 0.30 - 0.90 x10(3)/mc L 06/06/2024 3:[address] [facility] Eos % 3.0 % 06/06/2024 3:[address] [facility] Eos Absolute 0.29 0.00 - 0.40 x10(3)/mc L 06/06/2024 3:54 AM EST [facility] Basophil % 0.9 % [...] EST Shahnaz Scanlon MD HEMATOLOGY ORDERABLE S [facility] [place] [address] * Magnesium (06/06/2024 3:33 AM EST) Magnesium 0.92 0.69 - 1.07 mMol/L 06/06/2024 4:17 AM EST [facility] Blood VENOUS BLOOD SPECIMEN / Unknown Venipuncture / Unknown 06/06/2024 3:33 AM EST 06/06/2024 3:47 AM EST Shahnaz Scanlon MD CHEMISTRY ORDERABLES [facility] [place] [address] * (ABNORMAL) Basic Metabolic Panel (06/06/2024 3:33 [...] Scanlon MD CHEMISTRY ORDERABLES Performing Organization Address [facility]/ZIP Co de Phone Number [facility] [place] [address] * (ABNORMAL) POC, GLUCOSE (06/05/2024 10:31 PM EDT) Glucometer, POC 238(H) 65 - 199 mg/dL 06/05/2024 10:31 PM EDT [facility] Comment:Supplemental ranges: <140 mg/dL before meals <180 mg/dL all other times of the day. Blood CAPILLARY BLOOD / Unknown 06/05/2024 10:31 PM EDT 06/05/2024 10:31 PM EDT Melida Valdes MD POINT OF CARE TEST O RDBECKIE Performing Organization Address [facility]/ZIP Co de Phone Number [facility] [place] [address] * (ABNORMAL) POC, GLUCOSE (06/05/2024 4:22 PM EDT) Glucometer, POC 205(H) 65 - 199 mg/dL 06/05/2024 4:22 PM EDT [facility] Comment:Supplemental ranges: <140 mg/dL before meals <180 mg/dL all other times of the day. Blood CAPILLARY BLOOD / Unknown 06/05/2024 4:22 PM EDT 06/05/2024 4:23 PM EDT Melida Valdes MD POINT OF CARE TEST O NIKA [facility] [place] [address] * (ABNORMAL) POC, GLUCOSE (06/05/2024 11:34 AM EDT) Glucometer, POC 211(H) 65 - 199 mg/dL 06/05/2024 11:34 AM EDT [facility] Comment:Supplemental ranges: <140 mg/dL before meals <180 mg/dL all other times of the day. Blood CAPILLARY BLOOD / Unknown 06/05/2024 11:34 AM EDT 06/05/2024 11:34 AM EDT Melida Valdes MD POINT OF CARE TEST O RDBECKIE [facility] [address] * Potassium (06/05/2024 9:04 AM EDT) Potassium 4.3 3.5 - 5.0 mMol/L 06/05/2024 9:50 AM EDT [facility] Blood VENOUS BLOOD SPECIMEN / Unknown Venipuncture / Unknown 06/05/2024 9:04 AM EDT 06/05/2024 9:21 AM EDT Shahnaz Scanlon MD CHEMISTRY ORDERABLES Performing Organization Address [facility] Co de Phone Number [facility] [place] [address] * POC, GLUCOSE (06/05/2024 7:27 AM EDT) Glucometer, POC 166 65 - 199 mg/dL 06/05/2024 7:27 AM EDT [facility] Comment:Supplemental ranges: <140 mg/dL before meals <180 mg/dL all other times of the day. Blood CAPILLARY BLOOD / Unknown 06/05/2024 7:27 AM EDT 06/05/2024 7:27 AM EDT Melida Valdes MD POINT OF CARE TEST O RDERAPIETER Performing Organization Address City/[facility]/ZIP Co de Phone Number [facility] [place] [address] * Heparin (unfractionated) Level (06/05/2024 3:44 AM EDT) Pathologist [facility] UF Heparin 0.44 IU/mL 06/05/2024 4:07 AM EDT [facility] Comment: Heparin (anti-Xa) [...] MD HEMATOLOGY ORDERABLE S Performing Organization Address City/State/[facility] Co de Phone Number [facility] [place] [address] * (ABNORMAL) CBC (with Diff) (06/05/2024 3:44 AM EDT) Pathologist [facility] White Blood Cell 10.83(H) 4.00 - 9.50 x10(3)/mc L 06/05/2024 3:56 AM EDT [facility] Red Blood Cell 5.07 4.58 - 5.54 x10(6)/mc L 06/05/2024 3:56 AM EDT [facility] Hemoglobin 15.3 13.7 - 16.5 g/dL 06/05/2024 3:56 AM EDT [facility] Hematocrit 46.8 40.5 - 48.5 % 06/05/2024 3:56 AM [facility] Mean Cell Volume 92.3 82.9 - 93.1 fL 06/05/2024 3:56 AM [facility] Mean Cell Hemoglobin 30.2 27.5 - 32.1 pg 06/05/2024 3:56 AM [facility] Mean Cell Hemoglobin Concentration 32.7 32.0 - 35.7 g/dL 06/05/2024 3:56 AM [facility] Platelet 219 145 - 357 x10(3)/mc L 06/05/2024 3:56 AM [facility] Mean Platelet Volume 9.4 7.6 - 12.9 fL 06/05/2024 3:56 AM [facility] RDW Standard Deviation 46.7(H) 36.0 - 45.0 fL 06/05/2024 3:56 AM [facility] RDW coefficient of variation 13.9(H) 11.4 - 13.8 % 06/05/2024 3:56 AM [facility] NRBC% auto 0.0 % 06/05/2024 3:56 AM [facility] NRBC Absolute <0.01 <0.01 x10(3)/mc L 06/05/2024 3:56 AM [facility] Neutrophil % 61.5 % 06/05/2024 3:56 AM [facility] Neutrophil Absolute (ANC) - Automated 6.65(H) 1.70 - 6.10 x10(3)/mc L 06/05/2024 3:56 AM [facility] Lymph % 24.0 % 06/05/2024 3:56 AM [facility] Lymph Absolute 2.60 0.90 - 3.20 x10(3)/mc L 06/05/2024 3:56 AM [facility] Monocyte % 10.9 % 06/05/2024 3:56 AM [facility] Monocyte Absolute 1.18(H) 0.30 - 0.90 x10(3)/mc L 06/05/2024 3:56 AM EDT [facility] Eos % 2.2 % 06/05/2024 3:56 AM EDT [facility] Eos Absolute 0.24 0.00 - 0.40 x10(3)/mc L 06/05/2024 3:56 AM EDT [facility] Basophil % 0.8 % 06/05/2024 3:56 AM EDT [facility] Baso Absolute 0.09 0.00 - 0.10 x10(3)/mc L 06/05/2024 3:56 AM EDT [facility] Immature Gran % 0.6 % 3:56 AM EDT [facility] Immature Gran Absolute 0.07(H) 0.00 - 0.04 x10(3)/mc L 06/05/2024 3:56 AM EDT [facility] Blood VENOUS BLOOD SPECIMEN / Unknown Venipuncture / Unknown 06/05/2024 3:44 AM EDT 06/05/2024 3:50 AM EDT Shahnaz Scanlon MD HEMATOLOGY ORDERABLE S [facility] [place] [address] * Magnesium (06/05/2024 3:44 AM EDT) Magnesium 0.92 0.69 - 1.07 mMol/L 06/05/2024 4:20 AM EDT [facility] Blood VENOUS BLOOD SPECIMEN / Unknown Venipuncture / Unknown 06/05/2024 3:44 AM EDT 06/05/2024 3:50 AM EDT Shahnaz Scanlon MD CHEMISTRY ORDERABLES [facility] [place] [address] * (ABNORMAL) Basic Metabolic Panel (06/05/2024 3:44 AM EDT) Glucose 155 65 - 199 mg/dL 06/05/2024 4:20 AM [facility] Comment:Glucose Concentratio n >=200 mg/dL plus symptoms is consistent with Diabetes Mellitus. Blood Urea Nitrogen 25(H) 10 - 20 mg/dL 06/05/2024 4:20 AM [facility] Creatinine 1.16 0.80 - 1.50 mg/dL 06/05/2024 4:20 AM [facility] Sodium 136 135 - 145 mMol/L 06/05/2024 4:20 AM [facility] Potassium 3.9 3.5 - 5.0 mMol/L 06/05/2024 4:20 AM [facility] Chloride 95(L) 98 - 107 mMol/L 06/05/2024 4:20 AM [facility] Carbon Dioxide 29 22 - 31 mMol/L 06/05/2024 4:20 AM [facility] Anion Gap 12 5 - 15 mMol/L 06/05/2024 4:20 AM [facility] Calcium 9.2 8.5 - 10.5 mg/dL 06/05/2024 4:20 AM [facility] Est Glomerular Filtration Rate - Male 69 mL/min/1. 73 m?? 06/05/2024 4:20 AM [facility] Comment: This patient's estimated GFR was [...] Scanlon MD CHEMISTRY ORDERABLES Performing Organization Address [facility]/ZIP Co de Phone Number [facility] [place] [address] * Potassium (06/04/2024 10:34 PM EDT) Potassium 3.7 3.5 - 5.0 mMol/L 06/04/2024 11:03 PM EDT [facility] Blood VENOUS BLOOD SPECIMEN / Unknown Venipuncture / Unknown 06/04/2024 10:34 PM EDT 06/04/2024 10:39 PM EDT Shahnaz Scanlon MD CHEMISTRY ORDERABLES Performing Organization Address [facility] Co de Phone Number [facility] [place] [address] * POC, GLUCOSE (06/04/2024 7:43 PM EDT) Glucometer, POC 175 65 - 199 mg/dL 06/04/2024 7:43 PM EDT [facility] Comment:Supplemental ranges: <140 mg/dL before meals <180 mg/dL all other times of the day. Blood CAPILLARY BLOOD / Unknown 06/04/2024 7:43 PM EDT 06/04/2024 7:43 PM EDT Melida Valdes MD POINT OF CARE TEST O RDERABLES Performing Organization Address [facility]/ZIP Co de Phone Number [facility] [place] [address] * Potassium (06/04/2024 4:35 PM EDT) Potassium 4.0 3.5 - 5.0 mMol/L 06/04/2024 5:32 PM EDT [facility] Blood VENOUS BLOOD SPECIMEN / Unknown Venipuncture / Unknown 06/04/2024 4:35 PM EDT 06/04/2024 4:40 PM EDT Shahnaz Scanlon MD CHEMISTRY ORDERABLES [facility] [place] [address] * POC, GLUCOSE (06/04/2024 3:26 PM EDT) Glucometer, POC 154 65 - 199 mg/dL 06/04/2024 3:26 PM EDT [facility] Comment:Supplemental ranges: <140 mg/dL before meals <180 mg/dL all other times of the day. Blood CAPILLARY BLOOD / Unknown 06/04/2024 3:26 PM EDT 06/04/2024 3:27 PM EDT Melida Valdes MD POINT OF CARE TEST O RDERABLES [facility] [place] [address] * POC, GLUCOSE (06/04/2024 11:09 AM EDT) Glucometer, POC 188 65 - 199 mg/dL 06/04/2024 11:09 AM EDT [facility] Comment:Supplemental ranges: <140 mg/dL before meals <180 mg/dL all other times of the day. Blood CAPILLARY BLOOD / Unknown 06/04/2024 11:09 AM EDT 06/04/2024 11:09 AM EDT Delroy Fofana MD POINT OF CARE TEST ORDERABLES [facility] [place] [address] * Heparin (unfractionated) Level (06/04/2024 10:41 AM EDT) UF Heparin 0.43 IU/mL 06/04/2024 11:06 AM EDT [facility] Comment: Heparin (anti-Xa) [...] MD HEMATOLOGY ORDERABLE S Performing Organization Address City/[facility]/ZIP Co de Phone Number [facility] [place] [address] * Potassium (06/04/2024 10:41 AM EDT) [facility] Potassium 4.0 3.5 - 5.0 mMol/L 06/04/2024 11:11 AM EDT [facility] Blood VENOUS BLOOD SPECIMEN / Unknown Venipuncture / Unknown 06/04/2024 10:41 AM EDT 06/04/2024 10:46 AM EDT Shahnaz Scanlon MD CHEMISTRY ORDERABLES Performing Organization Address City/[facility]/ZIP Co de Phone Number [facility] [place] [address] * POC, GLUCOSE (06/04/2024 7:11 AM EDT) Pathologist [facility] Glucometer, POC 182 65 - 199 mg/dL 06/04/2024 7:12 AM EDT [facility] Comment:Supplemental ranges: <140 mg/dL before meals <180 mg/dL all other times of the day. Blood CAPILLARY BLOOD / Unknown 06/04/2024 7:11 AM EDT 06/04/2024 7:12 AM EDT Delroy Fofana MD POINT OF CARE TEST ORDERABLES Performing Organization Address [facility]/ZIP Co de Phone Number [facility] [place] [address] * Heparin (unfractionated) Level (06/04/2024 4:38 AM EDT) UF Heparin 0.41 IU/mL 06/04/2024 5:19 AM EDT [facility] Comment: Heparin (anti-Xa) [...] MD HEMATOLOGY ORDERABLE S Performing Organization Address City/[facility]/ZIP Co de Phone Number [facility] [place] [address] * (ABNORMAL) CBC (with Diff) (06/04/2024 4:38 AM EDT) White Blood Cell 11.45(H) 4.00 - 9.50 x10(3)/mc L 06/04/2024 5:12 AM [facility] Red Blood Cell 5.35 4.58 - 5.54 x10(6)/mc L 06/04/2024 5:12 AM [facility] Hemoglobin 16.0 13.7 - 16.5 g/dL 06/04/2024 5:12 AM [facility] Hematocrit 49.6(H) 40.5 - 48.5 % 06/04/2024 5:12 AM [facility] Mean Cell Volume 92.7 82.9 - 93.1 fL 06/04/2024 5:12 AM [facility] Mean Cell Hemoglobin 29.9 27.5 - 32.1 pg 06/04/2024 5:12 AM [facility] Mean Cell Hemoglobin Concentration 32.3 32.0 - 35.7 g/dL 06/04/2024 5:12 AM [facility] Platelet 222 145 - 357 x10(3)/mc L 06/04/2024 5:12 AM [facility] Mean Platelet Volume 9.5 7.6 - 12.9 fL 06/04/2024 5:12 AM [facility] RDW Standard Deviation 47.6(H) 36.0 - 45.0 fL 06/04/2024 5:12 AM [facility] RDW coefficient of variation 14.1(H) 11.4 - 13.8 % 06/04/2024 5:12 AM [facility] NRBC% auto 0.0 % 06/04/2024 5:12 AM [facility] NRBC Absolute <0.01 <0.01 x10(3)/mc L 06/04/2024 5:12 AM [facility] Neutrophil % 60.3 % 06/04/2024 5:12 AM EDT [facility] Neutrophil Absolute (ANC) - Automated 6.91(H) 1.70 - 6.10 x10(3)/mc L 06/04/2024 5:12 AM EDT [facility] Lymph % 25.1 % 06/04/2024 5:12 AM EDT [facility] Lymph Absolute 2.87 0.90 - 3.20 x10(3)/mc L 06/04/2024 5:12 AM EDT [facility] Monocyte % 10.6 % 06/04/2024 5:12 AM EDT [facility] Monocyte Absolute 1.21(H) 0.30 - 0.90 x10(3)/mc L 06/04/2024 5:12 AM EDT [facility] Eos % 2.8 % 06/04/2024 5:12 AM EDT [facility] Eos Absolute 0.32 0.00 - 0.40 x10(3)/mc L 06/04/2024 5:12 AM EDT [facility] Basophil % 0.7 % 06/04/2024 5:12 AM EDT [facility] Baso Absolute 0.08 0.00 - 0.10 x10(3)/mc L 06/04/2024 5:12 AM EDT [facility] Immature Gran % 0.5 % 5:12 AM EDT [facility] Immature Gran Absolute 0.06(H) 0.00 - 0.04 x10(3)/mc L 06/04/2024 5:12 AM EDT [facility] Blood VENOUS BLOOD SPECIMEN / Unknown Venipuncture / Unknown 06/04/2024 4:38 AM EDT 06/04/2024 5:07 AM EDT Shahnaz Scanlon MD HEMATOLOGY ORDERABLE S [facility] [place] [address] * Magnesium (06/04/2024 4:38 AM EDT) Magnesium 0.84 0.69 - 1.07 mMol/L 06/04/2024 5:35 AM EDT [facility] Blood VENOUS BLOOD SPECIMEN / Unknown Venipuncture / Unknown 06/04/2024 4:38 AM EDT 06/04/2024 5:07 AM EDT Shahnaz Scanlon MD CHEMISTRY ORDERABLES [facility] [place] [address] * (ABNORMAL) Basic Metabolic Panel (06/04/2024 4:38 AM EDT) Glucose 118 65 - 199 mg/dL 06/04/2024 5:35 AM EDT [facility] Comment:Glucose Concentratio n >=200 mg/dL plus symptoms is consistent with Diabetes Mellitus. Blood Urea Nitrogen 22(H) 10 - 20 mg/dL 06/04/2024 5:35 AM EDT [facility] Creatinine 1.22 0.80 - 1.50 mg/dL 06/04/2024 5:35 AM EDT [facility] Sodium 137 135 - 145 mMol/L 06/04/2024 5:35 AM EDT [facility] Potassium 3.6 3.5 - 5.0 mMol/L 06/04/2024 5:35 AM EDT [facility] Chloride 97(L) 98 - 107 mMol/L 06/04/2024 5:35 AM EDT [facility] Carbon Dioxide 29 22 - 31 mMol/L 06/04/2024 5:35 AM EDT [facility] Anion Gap 11 5 - 15 mMol/L [facility]/04[facility]24 [facility] Calcium 9.0 8.5 - 10.5 mg/dL 06/04/2024 5:[facility] Est Glomerular Filtration Rate - Male 65 mL/min/1. 73 m?? 06/04/2024 5:35 AM EDT [facility] Comment: This patient's [...] Scanlon MD CHEMISTRY ORDERABLES Performing Organization Address City/State/[facility] Co de Phone Number [facility] [place] [address] * Heparin (unfractionated) Level (06/03/2024 8:58 PM EDT) UF Heparin 0.27 IU/mL 06/03/2024 9:33 PM EDT [facility] Comment: Heparin (anti-Xa) [...] EDT Shahnaz Scanlon MD HEMATOLOGY ORDERABLE S [facility] [place] [address] * POC, GLUCOSE (06/03/2024 8:05 PM EDT) Glucometer, POC 136 65 - 199 mg/dL 06/03/2024 8:05 PM EDT [facility] Comment:Supplemental ranges: <140 mg/dL before meals <180 mg/dL all other times of the day. Blood CAPILLARY BLOOD / Unknown 06/03/2024 8:05 PM EDT 06/03/2024 8:05 PM EDT Delroy Fofana MD POINT OF CARE TEST ORDERABLES Performing Organization Address City/[facility]/ZIP Co de Phone Number [facility] [place] [address] * POC, GLUCOSE (06/03/2024 5:48 PM EDT) Glucometer, POC 191 65 - 199 mg/dL 06/03/2024 5:48 PM EDT [facility] Comment:Supplemental ranges: <140 mg/dL before meals <180 mg/dL all other times of the day. Blood CAPILLARY BLOOD / Unknown 06/03/2024 5:48 PM EDT 06/03/2024 5:49 PM EDT Delroy Fofana MD POINT OF CARE TEST ORDERABLES [facility] [place] [address] * CT Chest wo Contrast (Generic) (06/03/2024 4:33 PM EDT) WORKSTATION ID [id number] DH RAD Anatomical Region Laterality Modality Chest Computed Tomogra phy Impressions 06/03/2024 4:47 PM EDT Cardiomegaly. Biventricular ICD leads in place. Thank you for letting us participate in the care of this patient. ??If you are a health care provider and have any questions regarding this report, please contact the number below. ??For patients who have questions please contact the health careers counsellor that requested your imaging first. ? Electronically signed by: Stuart Aponte MD, [facility] ??([phone]), at 06/03/2024 4:47 PM Narrative 06/03/2024 4:47 [...] patients who have questions please contactthe health careers counsellor that requested your imaging first. Electronically signed by: Stuart Aponte MD, [facility]([phone]), at 06/03/2024 4:47 PM Bobby Loja MD IMG CT ORDERABLES * Carotid Duplex, Bilateral (06/03/2024 2:19 PM EDT) VB Text Report Department: Vascular Surgery Lab Patient: [id number] (GEORGE MEHTA) CPT: 38865 Referring Physician: BOBBY LOJA ?? Phone: Indications: [...] Loja MD VASCULAR ORDERABLES Performing Organization Address City/[facility]/ZIP Co de Phone Number [facility] * Heparin (unfractionated) Level (06/03/2024 12:48 PM EDT) UF Heparin 0.15 IU/mL 06/03/2024 1:13 PM EDT [facility] Comment: Heparin (anti-Xa) [...] MD HEMATOLOGY ORDERABLE S Performing Organization Address City/[facility]/ZIP Co de Phone Number [facility] [place] [address] * POC, GLUCOSE (06/03/2024 11:14 AM EDT) Glucometer, POC 166 65 - 199 mg/dL 06/03/2024 11:14 AM EDT [facility] Comment:Supplemental ranges: <140 mg/dL before meals <180 mg/dL all other times of the day. Blood CAPILLARY BLOOD / Unknown 06/03/2024 11:14 AM EDT 06/03/2024 11:14 AM EDT Delroy Fofana MD POINT OF CARE TEST ORDERABLES [facility] [place] [address] * (ABNORMAL) Troponin-T, High Sensitivity 3 Hour (06/03/2024 10:06 AM EDT) Troponin-T, High Sensitivity 266(H) <=22 ng/L 06/03/2024 10:50 AM EDT [facility] Comment: This patient's [...] value can be found in the [facility] Test Catalog Troponin - https://[email or web address]-.testcatalog.org/catalogs/565/files/33515 Reference: Fourth Cornish Definition of Myocardial Infarction. Journal of the [employer] College [employer] 2018;72:0436-9718 Troponin-T, HS 3 hr delta 06/03/2024 10:50 AM EDT [facility] Comment:Delta troponin value not calculated, sample collected outside of delta calculation time limit. Blood VENOUS BLOOD SPECIMEN / Unknown IP Care Team Draw / Unknown 06/03/2024 10:06 AM EDT 06/03/2024 10:15 AM EDT Delroy Fofana MD CHEMISTRY ORDERABLE S Performing Organization Address [facility]/State/ZIP Co de Phone Number [facility] [place] [address] * ECHO COMPLETE W CONTRAST (06/03/2024 8:46 AM EDT) Anatomical Region Laterality Modality Cardiac Other 06/03/2024 6:52 AM EDT Narrative 06/03/2024 10:32 AM EDT [address] [place] [address] ? Echocardiogram Report Name: ASHLEY MEHTAJOSEFINA Shankar ?Study Date: 06/03/2024 06:52 AM : 1955 ? Height: 168 cm ? Account: [id number] Age: 69 yrs ? Weight: 102 kg Gender: Male ?BSA: 2.1 m2 Ordering Physician: SHAHNAZ SCANLON Referring Physician: NEHAL QUINTERO Performed By: Sara Kebede RDCS Reason For Study: STEMI Exam Location: [facility]. Interpretation Summary -Left ventricular systolic [...] fellow performed study of today's date). Procedure Complete-06897. Image enhancement Optison was used for left [...] Note Jonnie Jordan MD - 06/03/2024 [address] [place] [address] Echocardiogram Report Name: ASHLEY MEHTAJOSEFINA Shankar Study Date: 406:52 AM : 1955 Height: 168 cm Account: [id number] Age: 69 yrs Weight: 102 kg Gender: Male BSA: 2.1 m2 Ordering Physician: SHAHNAZ SCANLON Referring Physician: NEHAL QUINTERO Performed By: Sara Kebede RDCS Reason For Study: STEMI Exam Location: [facility]. Interpretation Summary -Left ventricular systolic [...] a fellow performed study of's date). Procedure Complete-[id number]. Image enhancement Optison was used for left [...] 289(H) <=22 ng/L 06/03/2024 9:26 AM EDT [facility] Comment: This patient's [...] value can be found in the [facility] Laboratory Test Catalog Troponin - https://[email or web address].testcatalog.org/catalogs/565/files/11383 Reference: Fourth Cornish Definition of Myocardial Infarction. Journal of the [employer] College [employer]iology 2018;72:3523-5685 Troponin-T, HS 1 hr delta 5 ng/L 06/03/2024 9:26 AM EDT [facility] Comment:The 1 hour Troponin T delta value is the absolute difference between the Troponin T concentrations of the initial and subsequent sample collected between 45 - 120 minutes following the initial collection. Blood VENOUS BLOOD SPECIMEN / Unknown IP Care Team Draw / Unknown 06/03/2024 8:27 AM EDT 06/03/2024 8:37 AM EDT Delroy Fofana MD CHEMISTRY ORDERABLE S [facility] [place] [address] * POC, GLUCOSE (06/03/2024 7:54 AM EDT) Pathologist Jenny Glucometer, POC 195 65 - 199 mg/dL 06/03/2024 7:55 AM EDT [facility] Comment:Supplemental ranges: <140 mg/dL before meals <180 mg/dL all other times of the day. Blood CAPILLARY BLOOD / Unknown 06/03/2024 7:54 AM EDT 06/03/2024 7:55 AM EDT Nuha Rojo MD POINT OF CARE TEST ORDERABLES [facility] [place] [address] * (ABNORMAL) Troponin-T, High Sensitivity (06/03/2024 7:39 AM EDT) Troponin-T, High Sensitivity Initial 284(H) <=22 ng/L 06/03/2024 8:29 AM EDT [facility] Comment: This patient's [...] value can be found in the [facility] Laboratory Test Catalog Troponin - https://[email or web address]-.testcatalog.org/catalogs/565/files/03166 Reference: Fourth Cornish Definition of Myocardial Infarction. Journal of the [employer] College [employer]iology 2018;72:3700-4274 Blood VENOUS BLOOD SPECIMEN / Unknown IP Care Team Draw / Unknown 06/03/2024 7:39 AM EDT 06/03/2024 7:48 AM EDT Delroy Fofana MD CHEMISTRY ORDERABLE S [facility] [place] [address] * (ABNORMAL) Troponin-T, High Sensitivity 3 Hour (06/03/2024 5:11 AM EDT) Pathologist [facility] Troponin-T, High Sensitivity 254(H) <=22 ng/L 06/03/2024 5:49 AM EDT [facility] Comment: This patient's [...] value can be found in the [facility] Laboratory Test Catalog Troponin - https://[facility]testcatalog.org/catalogs/565/files/64325 Reference: Fourth Cornish Definition of Myocardial Infarction. Journal of the [employer] College [employer]iology 2018;72:9861-4116 Troponin-T, HS 3 hr delta 46 ng/L 06/03/2024 5:49 AM EDT [facility] Comment:The 3 hour [...] AM EDT Shahnaz Scanlon MD CHEMISTRY ORDERABLES [facility] [place] [address] * (ABNORMAL) Troponin-T, High Sensitivity 1 Hour (06/03/2024 3:07 AM EDT) Troponin-T, High Sensitivity 218(H) <=22 ng/L 06/03/2024 3:39 AM EDT [facility] Comment: This patient's [...] value can be found in the [facility] Test Catalog Troponin - https://[facility]testcatalog.org/catalogs/565/files/58492 Reference: Fourth Cornish Definition of Myocardial Infarction. Journal of the [employer] College of Cardiology 2018;72:5612-9736 Troponin-T, HS 1 hr delta 10 ng/L 06/03/2024 3:39 AM EDT [facility] Comment:The 1 hour Troponin T delta value is the absolute difference between the Troponin T concentrations of the initial and subsequent sample collected between 45 - 120 minutes following the initial collection. Blood VENOUS BLOOD SPECIMEN / Unknown IP Care Team Draw / Unknown 06/03/2024 3:07 AM EDT 06/03/2024 3:12 AM EDT Shahnaz Scanlon MD CHEMISTRY ORDERABLES [facility] [place] [address] * XR Chest One View (06/03/2024 2:41 AM EDT) WORKSTATION ID [id number] RAD Anatomical Region Laterality Modality Chest N/A Digital Radiogra phy Impressions 06/03/2024 3:06 AM EDT No radiographically evident acute cardiopulmonary process. Thank you for letting us participate in the care of this patient. ??If you are a health care provider and have any questions regarding this report, please contact the number below. ??For patients who have questions please contact the health careers counsellor that requested your imaging first. ? Narrative [...] patients who have questions please contactthe health careers counsellor that requested your imaging first. Electronically signed by: Corazon Mauro MD, [facility]([phone]), at 06/03/2024 3:06 AM Shahnaz Scanlon MD IMG DX ORDERABLES * Heparin (unfractionated) Level (06/03/2024 2:13 AM EDT) UF Heparin 0.56 IU/mL 06/03/2024 4:13 AM EDT [facility] Comment: Heparin (anti-Xa) [...] MD HEMATOLOGY ORDERABLE S Performing Organization Address City/[facility]/ZIP Co de Phone Number [facility] [place] [address] * (ABNORMAL) Troponin-T, High Sensitivity (06/03/2024 2:13 AM EDT) Troponin-T, High Sensitivity Initial 208(H) <=22 ng/L 06/03/2024 3:02 AM EDT [facility] Comment: This patient's [...] value can be found in the [facility] Laboratory Test Catalog Troponin - [email or web address].org/catalogs/565/files/[email or web address] Reference: Fourth [place]ish Definition of Myocardial Infarction. Journal of the [employer] 2018;72:2614-1712 Blood VENOUS BLOOD SPECIMEN / Unknown IP Care Team Draw / Unknown 06/03/2024 2:13 AM EDT 06/03/2024 2:32 AM EDT Shahnaz Scanlon MD CHEMISTRY ORDERABLES [facility] [place] [address] * Magnesium (06/03/2024 2:13 AM EDT) Magnesium 0.86 0.69 - 1.07 mMol/L 06/03/2024 3:02 AM EDT [facility] Blood VENOUS BLOOD SPECIMEN / Unknown IP Care Team Draw / Unknown 06/03/2024 2:13 AM EDT 06/03/2024 2:32 AM EDT Shahnaz Scanlon MD CHEMISTRY ORDERABLES [facility] [place] [address] * Basic Metabolic Panel (06/03/2024 2:13 AM EDT) Glucose 126 65 - 199 mg/dL 06/03/2024 3:02 AM EDT [facility] Comment:Glucose Concentratio n >=200 mg/dL plus symptoms is consistent with Diabetes Mellitus. Blood Urea Nitrogen 20 10 - 20 mg/dL 06/03/2024 3:02 AM EDT [facility] Creatinine 1.13 0.80 - 1.50 mg/dL 06/03/2024 3:02 AM EDT [facility] Sodium 139 135 - 145 mMol/L 06/03/2024 3:02 AM EDT [facility] Potassium 4.2 3.5 - 5.0 mMol/L 06/03/2024 3:02 AM EDT [facility] Chloride 101 98 - 107 mMol/L 06/03/2024 3:02 AM EDT [facility] Carbon Dioxide 26 22 - 31 mMol/L 06/03/2024 3:02 AM EDT [facility] Anion Gap 12 5 - 15 mMol/L 06/03/2024 3:02 AM EDT [facility] Calcium 9.8 8.5 - 10.5 mg/dL 06/03/2024 3:02 AM EDT [facility] Est Glomerular Filtration Rate - Male 71 mL/min/1. 73 m?? 06/03/2024 3:02 AM EDT [facility] Comment: This patient's [...] AM EDT Shahnaz Scanlon MD CHEMISTRY ORDERABLES [facility] [place] [id number] * (ABNORMAL) CBC (with Diff) (06/03/2024 2:13 AM EDT) White Blood Cell 11.16(H) 4.00 - 9.50 x10(3)/mc L 06/03/2024 2:37 AM EDT [facility] Red Blood Cell 5.09 4.58 - 5.54 x10(6)/mc L 06/03/2024 2:37 AM EDT [facility] Hemoglobin 15.0 13.7 - 16.5 g/dL 06/03/2024 2:37 AM EDT [facility] Hematocrit 47.4 40.5 - 48.5 % 06/03/2024 2:37 AM EDT [facility] Mean Cell Volume 93.1 82.9 - 93.1 fL 06/03/2024 2:37 AM EDT [facility] Mean Cell Hemoglobin 29.5 27.5 - 32.1 pg 06/03/2024 2:37 AM [facility] Mean Cell Hemoglobin Concentration 31.6(L) 32.0 - 35.7 g/dL 06/03/2024 2:37 AM [facility] Platelet 217 145 - 357 x10(3)/mc L 06/03/2024 2:37 AM [facility] Mean Platelet Volume 9.5 7.6 - 12.9 fL 06/03/2024 2:37 AM [facility] RDW Standard Deviation 49.0(H) 36.0 - 45.0 fL 06/03/2024 2:37 AM [facility] RDW coefficient of variation 14.1(H) 11.4 - 13.8 % 06/03/2024 2:37 AM [facility] NRBC% auto 0.0 % 06/03/2024 2:37 AM [facility] NRBC Absolute <0.01 <0.01 x10(3)/mc L 06/03/2024 2:37 AM [facility] Neutrophil % 58.4 % 06/03/2024 2:37 AM [facility] Neutrophil Absolute (ANC) - Automated 6.51(H) 1.70 - 6.10 x10(3)/mc L 06/03/2024 2:37 AM [facility] Lymph % 29.9 % 06/03/2024 2:37 AM [facility] Lymph Absolute 3.34(H) 0.90 - 3.20 x10(3)/mc L 06/03/2024 2:37 AM [facility] Monocyte % 8.1 % 06/03/2024 2:37 AM [facility] Monocyte Absolute 0.90 0.30 - 0.90 x10(3)/mc L 06/03/2024 2:37 AM [facility] Eos % 2.4 % 06/03/2024 2:37 AM EDT [facility] Eos Absolute 0.27 0.00 - 0.40 x10(3)/mc L 06/03/2024 2:37 AM EDT [facility] Basophil % 0.8 % 06/03/2024 2:37 AM EDT [facility] Baso Absolute 0.09 0.00 - 0.10 x10(3)/mc L 06/03/2024 2:37 AM EDT [facility] Immature Gran % 0.4 % 2:37 AM EDT [facility] Immature Gran Absolute 0.05(H) 0.00 - 0.04 x10(3)/mc L 06/03/2024 2:37 AM EDT [facility] Blood VENOUS BLOOD SPECIMEN / Unknown IP Care Team Draw / Unknown 06/03/2024 2:13 AM EDT 06/03/2024 2:31 AM EDT Shahnaz Scanlon MD HEMATOLOGY ORDERABLE S [facility] [place] [address] * Lipid Panel (Reflex Direct LDL) (06/03/2024 2:13 AM EDT) Cholesterol, Total 76 mg/dL 06/03/2024 3:02 AM EDT [facility] Comment: Desirable: < 200 mg/dL Borderline High: 200 - 239 mg/dL High: > or = 240 mg/dL Triglyceride 75 mg/dL 06/03/2024 3:02 AM EDT [facility] Comment: Normal: <150 mg/dL Borderline High: 150-199 mg/dL High: 200-499 mg/dL Very High: > or =500 mg/dL HDL Cholesterol 39 mg/dL 3:02 AM EDT [facility] Comment:Males: High Risk: <4 0 mg/dL LDL Cholesterol 21 mg/dL 3:02 AM EDT [facility] Comment: Desirable: <100 mg/dL Above Desirable: 100-129 mg/dL Borderline High: 130-159 mg/dL High: 160-189 mg/dL Very High: > or =190 mg/dL Note: LDL calculation updated to the NIH LDL formula as of 03/07/2024 Non-HDL Cholesterol 37 mg/dL 06/03/2024 3:02 AM EDT [facility] Comment: Desirable: <130 mg/dL Above Desirable: 130-159 mg/dL Borderline High: 160-189 mg/dL High: 190-219 mg/dL Very High: > or = 220 mg/dL Blood VENOUS BLOOD SPECIMEN / Unknown IP Care Team Draw / Unknown 06/03/2024 2:13 AM EDT 06/03/2024 2:32 AM EDT [facility] - 06/03/2024 3:02 AM [...] Scanlon MD CHEMISTRY ORDERABLES Performing Organization Address [facility] Co de Phone Number [facility] [place] [address] * (ABNORMAL) APTT (06/03/2024 2:13 AM EDT) [facility] Partial Thromboplastin Time 105(HHH) 25 - 37 sec 06/03/2024 4:13 AM EDT [facility] Comment: The PTT [...] MD HEMATOLOGY ORDERABLE S Performing Organization Address City/[facility]/ZIP Co de Phone Number [facility] [place] [address] * Prothrombin Time (06/03/2024 2:13 AM EDT) Prothrombin Time 11.5 9.4 - 12.5 sec 06/03/2024 4:13 AM EDT [facility] International Normalization Ratio 1.0 <=4.9 06/03/2024 4:13 AM EDT [facility] Comment: An INR [...] MD HEMATOLOGY ORDERABLE S Performing Organization Address City/State/[facility] Co de Phone Number [facility] [place] [address] * Hepatic Function Panel (06/03/2024 2:13 AM EDT) Pathologist [facility] Albumin 3.8 3.2 - 5.2 g/dL 06/03/2024 3:02 AM EDT [facility] Aspartate Aminotransferase 20 <=39 unit/L 06/03/2024 3:02 AM EDT [facility] Alanine Aminotransferase 12 0 - 55 unit/L 06/03/2024 3:02 AM EDT [facility] Alkaline Phosphatase 76 40 - 130 unit/L 06/03/2024 3:02 AM EDT [facility] Bilirubin, Total 0.4 <=1.3 mg/dL 06/03/2024 3:02 AM EDT [facility] Bilirubin, Direct <0.2 0.0 - 0.3 mg/dL 06/03/2024 3:02 AM EDT [facility] Protein, Total 7.0 6.1 - 8.0 g/dL 06/03/2024 3:02 AM EDT [facility] Blood VENOUS BLOOD SPECIMEN / Unknown IP Care Team Draw / Unknown 06/03/2024 2:13 AM EDT 06/03/2024 2:32 AM EDT Shahnaz Scanlon MD CHEMISTRY ORDERABLES Performing Organization Address [facility] Co de Phone Number [facility] [place] [address] * (ABNORMAL) pro-Brain Natriuretic Peptide (06/03/2024 2:13 AM EDT) NT-proBNP 1,628(H) <=124 pg/mL 06/03/2024 4:15 AM EDT [facility] Blood VENOUS BLOOD SPECIMEN / Unknown IP Care Team Draw / Unknown 06/03/2024 2:13 AM EDT 06/03/2024 2:32 AM EDT Shahnaz Scanlon MD CHEMISTRY ORDERABLES Performing Organization Address [facility] Co de Phone Number [facility] [place] [address] * Phosphorus (06/03/2024 2:13 AM EDT) Phosphorus 4.4 2.5 - 4.5 mg/dL 06/03/2024 3:02 AM EDT [facility] Blood VENOUS BLOOD SPECIMEN / Unknown IP Care Team Draw / Unknown 06/03/2024 2:13 AM EDT 06/03/2024 2:32 AM EDT Shahnaz Scanlon MD CHEMISTRY ORDERABLES Performing Organization Address City/[facility]/ZIP Co de Phone Number [facility] [place] [address] * EKG 12 Lead (06/03/2024 1:45 AM EDT) Ventricular rate 63 BPM MUSE SYSTEM Atrial Rate 63 BPM MUSE SYSTEM P-R Interval 168 ms MUSE SYSTEM QRS Duration 96 ms MUSE SYSTEM Q-T Interval 400 ms MUSE SYSTEM QTC Calculated (Bezet) 409 ms MUSE SYSTEM Calculated P [place] 65 degrees MUSE SYSTEM Calculated R [place] 70 degrees MUSE SYSTEM Calculated T [place] -86 degrees MUSE SYSTEM INTERPRETATION Atrial-sensed ventricular-paced rhythm Abnormal ECG No previous ECGs available I personally reviewed the tracing and edited the fellows interpretation Confirmed by fellow Sunni Agudelo ([id number]) on 06/04/2024 3:55:40 PM Confirmed by MD Tamia, Stuart Perry ([id number]) on 06/05/2024 11:46:48 AM MUSE SYSTEM 06/03/2024 1:45 AM EDT 06/05/2024 11:46 AM EDT Shahnaz Scanlon MD ECG ORDERABLES MUSE SYSTEM * CARDIAC CATHETERIZATION (06/03/2024 12:42 AM EDT) Anatomical Region Laterality Modality Other Narrative 06/04/2024 2:22 PM EDT ?[facility] ? Cardiac Catheterization/Intervention Report ? Patient Name: George Mehta Raad. ? Procedure Date: 06/02/2024 ? A #: [id number] ? Primary Physician: Nuha Shen I ? Case #: [id number] ? File Name: [id number] ? Catheterization Order Number: [id number] ? [facility] ? Final Report [place], [place] ? Patient Name: ? George L. Tyson ? ID#: ?[id number] ? : ?1955 ? Procedure Date: ? [...] IV. The [facility] clinical frailty ?scale is 5: Mildly Frail. ? Diagnostic Tests: ?Electrocardiography: ? EKG was assessed by ECG. EKG was Abnormal. EKG showed ST Deviation ? >= 0.5 mm. ?Medications Prior to Procedure: ? Sacubitril and Valsartan, Aspirin, Beta Erik, Statin and ? Thrombolytic (any). ? Indications for Diagnostic Cath: ?The priority of the diagnostic procedure was Emergent. The indication for ?the clinical laboratory service teacher visit is ACS less than or equal [...] ?3.5 guiding catheter and a 3.5 Fr [facility] [place] 20 Mhz using Manual ?pullback. ??Imaging was [...] 3.5 guiding catheter and a 3.5 Fr [facility] [place] 20 Mhz using ?Manual pullback. ??Imaging was [...] Procedure Note Nuha Shen MD - 07/20/2024 [facility] Cardiac Catheterization/Intervention Report Patient Name: George Mehta Procedure Date: 06/02/2024 A #: [id number] Primary Physician: Nuha Shen I Case #: [id number] File Name: [id number] Catheterization Order Number: [id number] [facility] FinalReport [place], [place] Patient Name: George Mehta ID#:[id number] :1955 Procedure Date: June 02, 2024 Case [...] diagnostic procedure was Emergent. Theindication for the clinical laboratory service teacher visit is ACS less than or equal [...] units of heparin were administered. A total [id number] of Omnipaque were opened, 84cc of Omnipaque were administered ghs23in of Omnipaque were wasted. Radiation: Fluoro time [...] 3.5 guiding catheter and a 3.5 Fr [facility] [place] 20 Mhz usingManual pullback. Imaging was successful. [...] 3.5 guiding catheter and a 3.5 Fr [facility] [place] 20 Mhzusing Manual pullback. Imaging was successful. Indication: IVUS performed for pre intervention planning. Findings Pre-Intervention: scattered plaque, calcification and [id number] degrees calcification. Findings Post-Intervention: Stent not imaged [...] - 199 mg/dL 06/02/2024 11:31 PM EDT [facility] Comment:Supplemental ranges: <140 mg/dL before meals <180 mg/dL all other times of the day. Blood CAPILLARY BLOOD / Unknown 06/02/2024 11:31 PM EDT 06/02/2024 11:31 PM EDT Nuha Rojo MD POINT OF CARE TEST ORDERABLES Performing Organization Address City/State/[facility] Co de Phone Number [facility] [place] [address] documented in this encounter Visit Diagnoses Diagnosis STEMI (ST elevation myocardial infarction)- Primary Acute myocardial infarction, unspecified site, episode of care unspecified ST elevation myocardial infarction (STEMI), unspecified artery Coronary artery disease involving [place] coronary artery of [place] heart without angina pectoris 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 Give SC if unable to take PO, Routine Given 06/14/2024 3:10 PM EST 300 mg atorvastatin (Lipitor) tablet 80 mg 80 mg, Oral, EVERY EVENING, First dose on [facility] 06/03/24 at 0130, Until Discontinued, Routine [...] Oral, 2 TIMES DAILY, First dose on [facility] 06/03/24 at 0900, Until Discontinued, Routine [...] dose on Fri06/14/24 at 2100, Until Discontinued, Leo teeth and / or gums. Scan the CHG vial in the [employer] Q-Care Oral Care Kit from floor stock. Ventilator-associated pneumonia prophylaxis For use in ICU/Critical care locations ONLY. Obtain kit from Floor Stock location. Scan CHG vial in the [employer] Q-Care Oral Care Kit, Routine Given 06/14/2024 [...] restart at 50% of previous rate. Call warehouse driver if goal not achieved at maximum rate. [...] in sodium chloride 0.9% infusion (for [facility], Nut Sorter Operator, OR use only) 3-5 mL/hr, Intravenous, CONTINUOUS, [...] MEALS, First dose (after last modification) on [facility] 06/17/24 at 0800, Until Discontinued, MEAL [...] MEALS, First dose (after last modification) on [facility] 06/17/24 at 1700, Until Discontinued, MEAL [...] TIMES DAILY WITH MEALS, First dose on [place] 06/06/24 at 1200, Until Discontinued, MEAL ASSOCIATED Give 1 unit for every 10 grams carbohydrate. Hold if not eating or if BG less than 70 mg/dL. , Routine Given 06/06/2024 12:25 PM EST 4 Units insulin lispro (HumaLOG;Admelog) (100 unit/mL) subcutaneous injection vial 1-10 Units 1-10 Units, Subcutaneous, EVERY 4 HOURS SCHEDULED, First dose (after last modification) on [facility] 06/19/24 at 0800, Until Discontinued, CORRECTION BOLUS [...] 2100, Last dose on Fri06/23/24 at 0900, Air Hole Driller recommended duration is 3 days., Routine Given [...] 8:02 PM EST 2 tablets sodium chloride ([place]) 0.65 % nasal spray 1 spray 1 [...] 2.0 L/min/M2. Maximum volume 2 L. Call warehouse driver for additional fluid orders: pager #[phone]. Rate/Dose Verify 06/15/2024 10:00 AM EST 1 [...] Lou Lane RN)202 (Given - Provider: Christina Myesr RN) 0821 (Given - Provider: Michelle Orozco [...] 2100, Last dose on Fri06/23/24 at 0900, Air Hole Driller recommended duration is 3 days., Routine 2043 [...] oral route first line., Routine sodium chloride ([place]) 0.65 % nasal spray 1 spray 1 [...] 6 hours upon arrival to Unit. Give SC if unable to take PO, Routine Group [...] Routine documented in this encounter Care Teams Shop Hand Relationship Specialty Start Date End Date Mauro Berumen MD [address] [place] [address] PCP - General Family Medicine 06/02/24 documented as of this encounter
--- OUTSIDE RECORDS SUMMARY | 2024-08-13 11:22 | XMS_ITS | Encounter Summary ---
Author Organization [facility] Address [facility] [place] [address] Care Team Providers Care Eclectic Doctor Name Role Phone Mauro Berumen MD Primary Care Provider [phone] Encounter Details Date Type Department Care Team (Latest Contact Info) Description 06/15/2024 Unscheduled Encounter Cardiology at [address] [place] [phone] Ross Corbin PA [facility] [place] [address] Cardiac resynchronization therapy defibrillator (RADIUS GRINDER-D) in place [Z95.810] Social History Tobacco Use Types Packs/Day Years Used Date Smoking Tobacco: Every Day Cigarettes Smokeless Tobacco: Never [facility] Utilities Answer Date Recorded In [...] PM EST Cardiac Device Interrogation Arturo Mehta [id number] 06/15/2024 History: Arturo Mehta is a 69 year old male with a PMH significant for HTN, HLD, DM2, current TUD (abstinent since admission), ASCVD with multiple prior NC and PCIs, 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 Today, EP was asked to reprogram his RADIUS GRINDER-D device for the procedure. Vitals: Last Set of Vitals and range of vitals over past 24 hours: Range last 24 hrs Temperature Temp: [34.9 ??C (94.8 ??F)-37.6 ??C (99.7 ??F)] Heart Rate Heart Rate: [80-107] Blood Pressure BP: (115)/(65) Respiratory Rate Resp: [11-24] SpO2 SpO2: [92 %-100 %] Device Interrogation: Data Generator: Medtronic Amplia MRI Quad RADIUS GRINDER-D [id number] / [id number] - Left-sided implant; 06/16/19 RA Lead: Medtronic 4076 CapSureFix Novus [id number]; 06/16/19 RV Lead: Medtronic [id number] / [id number]; 06/16/19 LV Lead: Medtronic [id number] Attain Performa MRI / [id number]; 06/16/19 Alerts VF Detection OFF, 3+ VF or 3+ FVT Rx Off. Diagnostics Pacing Mode: DDD @ 80/130 bpm Presenting EGMs: BV Underlying Rhythm: Sinus tachycardia ~100 bpm Atrial Pacin.7% Ventricular Pacin.6% RADIUS GRINDER Pacin% Battery and Leads Voltage: 2.93 V [...] - Contact the device clinic at pager [phone] for any further programming adjustments. Ross Corbin PA-C, PhD 06/15/2024 Pager: [phone] documented in this encounter Plan of Treatment Not on file documented as of this encounter Visit Diagnoses Diagnosis Cardiac resynchronization therapy defibrillator (RADIUS GRINDER-D) in place [Z95.810] documented in this encounter Care Teams Eclectic Doctor Relationship Specialty Start Date End Date Mauro Berumen MD [address] [place] [address] PCP - General Family Medicine 06/02/24 documented as of this encounter
--- OUTSIDE RECORDS SUMMARY | 2024-08-13 11:22 | XMS_ITS | Encounter Summary ---
Author Organization [facility] Address [facility] [place] [address] Care Team Providers Care Deputy Editor In Chief Name Role Phone Mauro Berumen MD Primary Care Provider [phone] Encounter Details Date Type Department Care Team (Latest Contact Info) Description 06/14/2024 Unscheduled Encounter Cardiology at [address] [place] [phone] Ross Corbin PA [facility] [place] [address] Cardiac resynchronization therapy defibrillator (BUSSER-D) in place [Z95.810] Social History Tobacco Use Types Packs/Day Years Used Date Smoking Tobacco: Every Day Cigarettes Smokeless Tobacco: Never [facility] Utilities Answer Date Recorded In the [...] AM EST Cardiac Device Interrogation Arturo Mehta [id number] 06/14/2024 History: Arturo Mehta is a 69 year old male with a PMH significant for HTN, HLD, DM2, current TUD (abstinent since admission), ASCVD with multiple prior [place] and PCIs, ICM/HFrEF LVEF 30% (all territories viable on cMRI) who is undergoing a CABG procedure and EP was asked to reprogram his BUSSER-D device for the procedure. Vitals: Last Set of Vitals and range of vitals over past 24 hours: Range last 24 hrs Temperature Temp: [36 ??C (96.8 ??F)-37 ??C (98.6 ??F)] Heart Rate Heart Rate: [57-72] Blood Pressure BP: (99-138)/(66-86) Respiratory Rate Resp: [13-24] SpO2 SpO2: [90 %-98 %] Device Interrogation: Data Generator: MedZipZap Amplia MRI Quad BUSSER-D [id number] / [id number] - Left-sided implant; 06/16/19 RA Lead: Medtronic [id number] CapSureFix Novus [id number]; 06/16/19 RV Lead: Medtronic 6935M / [id number]; 06/16/19 LV Lead: Medtronic [id number] Attain Performa MRI / [id number]; 06/16/19 Diagnostics Pacing Mode: DDD @ 50/130 [...] scheduled. Ross Corbin PA-C, PhD 06/14/2024 Pager: [phone] documented in this encounter Plan of Treatment Not on file documented as of this encounter Visit Diagnoses Diagnosis Cardiac resynchronization therapy defibrillator (BUSSER-D) in place [Z95.810] documented in this encounter Care Teams Deputy Editor In Chief Relationship Specialty Start Date End Date Mauro Berumen MD [address] [place] [address] PCP - General Family Medicine 06/02/24 documented as of this encounter
--- OUTSIDE RECORDS SUMMARY | 2024-08-13 11:24 | XMS_ITS | Encounter Summary ---
Author Organization [facility] [place] [address] Care Team Providers Care Property Management Bookkeeper Name Role Phone Mauro Berumen MD Primary Care Provider Reason for Visit * Auth/Cert Specialty Diagnoses / Procedures Referred By Carroll t Referred To Contact Diagnoses STEMI (ST elevation myocardial infarction) STEMI Procedures CARDIAC CATHETERIZATION EMERGENCY Delroy Monterroso MD [facility] [place] [address] [facility] Referral ID Status Reason Start Date Expiration Date Visits Re quested Visits Authorized [id number] 1 1 Encounter Details Date Type Department Care Team (Late st Contact Info) Description 06/14/2024 7:30 AM EST Anesthesia [place] [address] Hosea Ardon MD [facility] [place] [address] Joy Leyva CRNA [facility] [place] [address] Anesthesia Record Procedure Summary Procedure Name Responsible [...] by Zeferino Baker RN PIV 06/13/24; 1200; [id number] catheter system; 20 gauge; metacarpal vein (top [...] temperature probe; 100% silicone; 14; inserted at [facility]; 1; 10; 10; drainage bag; 06/18/24; [...] Ardon MD 06/15/24 0000 by Yoli Donaldson SENIOR UI SOFTWARE ENGINEER [employer] 06/14/24; 0827; Sing le Lumen; [...] Day Cigarettes Smokeless Tobacco: Never [facility] Utilities Answer Date Recorded In the past 12 months has [employer], [employer], oil, or water [employer] threatened to shut off services in your [...] were you homeless or living in a detention (including now)? No 06/03/2024 IPV Inpatient Questions [...] Procedure Summary Date: 06/14/24 Room / Location: [facility] OR [address] [place] [address] MAIN OR Anesthesia Start: 729 Anesthesia Stop: 1428 Procedures: @CABG, USING ARTERIAL GRAFT;SINGLE ARTERIAL GRAFT (WRVU 33.75) (Chest) @CABG, TWO VENOUS GRAFTS & ARTERIAL GRAFT (WRVU 7.93) (Chest) ENDOSCOPIC HARVEST VEIN(S) FOR CABG (WRVU 0.31) (Leg) @EXCISION OF MEDIASTINAL TUMOR (WRVU 19.55) (Chest) EXPLORATION AND OVERSEW ATRIAL APPENDAGE (WRVU 5.94) (Chest) Diagnosis: (CAD) Surgeons: oBbby Loja MD Responsible Provider: Hosea Ardon MD Anesthesia Type: general ASA Status: 4 All Anesthesia Providers: Anesthesiologist: Hosea Ardon MD SENIOR CONSTRUCTION ESTIMATOR: Joy Leyva CRNA Vitals Value Taken Time [...] Diagnosis Date Noted Cardiac resynchronization therapy defibrillator (BELL CLEANER-D) - [employer] Amplia 06/09/2024 Cardiomyopathy, ischemic 06/09/2024 Acute on chronic heart failure with reduced ejection fraction (HFrEF, <= 40%) 06/05/2024 Coronary artery disease involving north fork coronary artery of north fork heart without angina pectoris 06/05/2024 Type 2 [...] ACS/crushing chest pain, likely due to lateral HI, found to have surgical CAD with viability [...] - Mildly dilated left ventricle size with [id number] decreased LV systolic function. LV ejection fraction [...] AM Reason For Study: STEMI Exam Location: [facility]. Interpretation Summary -Left ventricular systolic function is [...] 65 - 199 mg/dL -Type and screen ([facility] [place]/CGP/RAFITA): Result Value Ref Range ABORH Type O POSITIVE PATIENT HISTORY Not Found Expires at [id number] on: 06/16/2024 ANTIBODY SCREEN AUTOMATED Negative T&S only valid at [facility] [place] LAB -POC, GLUCOSE: Result Value Ref Range Glucometer, POC 216 (H) 65 - 199 mg/dL -ABORH RECHECK: Result Value Ref Range ABORH Recheck O POSITIVE -Heparin (unfractionated) Level: Result Value Ref Range UF Heparin 0.76 IU/mL Region - Intrathoracic Cardiac Informed Consent: Plan discussed with SENIOR CONSTRUCTION ESTIMATOR. Anesthesia Screening documented in this encounter Plan [...] mL/hr documented in this encounter Care Teams Property Management Bookkeeper Relationship Specialty Start Date End Date Mauro Berumen MD [address] [place] [address] PCP - General Family Medicine 06/02/24 documented as of this encounter
--- OUTSIDE RECORDS SUMMARY | 2024-08-13 11:24 | XMS_ITS | Encounter Summary ---
Author Organization [facility] [place] [address] Care Team Providers Care Litigation Secretary Name Role Phone Mauro Berumen MD Primary Care Provider [phone] Reason for Visit * Auth/Cert Specialty Diagnoses / Procedures Referred By Carroll t Referred To Contact Diagnoses STEMI (ST elevation myocardial infarction) STEMI Procedures CARDIAC CATHETERIZATION EMERGENCY Delroy Monterroso MD [facility] [place] [address] [facility] Referral ID Status Reason Start Date Expiration Date Visits Re quested Visits Authorized [id number] 1 1 Encounter Details Date Type Department Care Team (Late st Contact Info) Description 06/14/2024 7:30 AM EST - 06/14/2024 2:08 PM EST Surgery [place] [address] Bobby Loja MD [facility] [place] [address] @CABG, USING ARTERIAL GRAFT;SINGLE ARTERIAL GRAFT (WRVU 33.75) Social History Tobacco Use Types Packs/Day Years Used Date Smoking Tobacco: Every Day Cigarettes Smokeless Tobacco: Never Tobacco Cessation:Ready to Q uit: No; Counseling Given: Yes [facility] Utilities Answer Date Recorded In the [...] any time in the past 12 m [facility], were you homeless or living in a penitentiary (including now)? No 06/03/2024 DH IPV Inpatient [...] Patient Age: 69 y.o. Birthdate: 1955 Language: Greek Race: Choose not to Disclose Ethnicity: Not nor Admit Date: 06/02/2024 Discharge Date: 06/21/2024 Attending Physician: Bobby Loja MD Follow-up Recommendations for Providers: Please continue routine management of cardiovascular risk factors including blood pressure, lipids,glucose, etc. Please note any changes to medications. Patient to follow up with PCP, Mauro Berumen MD, in 1-2 weeks. Patient to follow up with Barrel Charrer Helper, Kristen Cardenas in 2-3 weeks. Patient to follow up with Cardiac Surgeon, Dr. Bobby Loja, in 4 wks. Inpatient Provider Contact Information: [facility] [place], [place] [address] FAX [phone] Discharge Diagnoses (Hospital Problems) Primary Diagnoses: STEMI [...] (WRVU 33.75) performed by Bobby Loja MD [facility] MAIN OR PRO CABG, ARTERY-VEIN, TWO N/A 06/14/2024 @CABG, TWO VENOUS GRAFTS & ARTERIAL GRAFT (WRVU 7.93) performed by Bobby Loja MD at [facility] OR PRO ENDOSCOPY W/VIDEO-ASST VEIN HARVEST, CABG N/A 06/14/2024 ENDOSCOPIC HARVEST VEIN(S) FOR CABG (WRVU 0.31) performed by Bobby Loja MD at [facility] MAIN OR PRO EXC MEDIASTINAL TUMOR N/A 06/14/2024 @EXCISION OF MEDIASTINAL TUMOR (WRVU 19.55) performed by Bobby Loja MD at [facility] MAIN OR PRO INSERT INTRA-AORTIC BALLOON ASST DEVICE PERCUTANEOUS N/A 06/13/2024 @INSERTION OF IABP,PERCUTANEOUS (WRVU 4.84) performed by Nuha Shen MD at [facility] CATH LABS PRO UNLISTED CARDIAC SURG PROCEDURE N/A 06/14/2024 EXPLORATION AND OVERSEW ATRIAL APPENDAGE (WRVU 5.94) performed by Bobby Ljoa MD at [facility] [place] Prior To Admission Medications [...] melanoma, and smoker who presented to [facility] last night via EMS after developing acute, severe chest pain while watching TV. Patient was ruled in for STEMI, given TNK, ASA, plavix, heparin gtt, and sent to [facility] for coronary angiography. 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 Milk and er-hzilj-rpbsl yogurt have 15 grams of carbs in a serving. A serving is 1 cup of milk or 3/4 cup (6 oz) of nl-zuooq-stecu yogurt. Starchy vegetables have 15 grams of carbs in a serving. A serving is ?? cup of mashed potatoes or sweet potato; 1 cup winter squash; ?? of a small baked potato; ?? cup of cooked beans; or ?? cup cooked corn or green peas. Learn how much carbs to eat each day and at each meal. A dietitian or certified registered nurse practitioner can teach you how to keep track [...] Bobby Loja and/or the Cardiac Surgery Physician Casting Repairer Team may be reached at . Weight: [...] Dr. Bobby Loja. You may use a [place] Track or treadmill but avoid any pulling [...] friends, go to a movie, go to nondenominational, etc. Heavy activities: No hunting, skiing, jogging, [...] should resume a low fat, low cholesterol, [place] [employer] Diet/Diabetic diet. Driving: No driving [...] while being managed by your PCP and/or Barrel Charrer Helper. For future medication refills, please refer to your PCP and/or Barrel Charrer Helper after your discharge from our service. Thank you REMOVE CHEST TUBE SUTURES ON OR AFTER 06/24/2024 Home oxygen therapy: N/A Follow up appointments: You should follow up with your PCP, Mauro Berumen MD, in 1-2 weeks. You should follow up with your Barrel Charrer Helper, Dr CARDENAS. You have an appointment with your Cardiac Surgeon, Dr. Bobby Loja, in 4 wks. Cardiac Rehabilitation: George Mehta was seen today regarding participation in the outpatient Phase 2 Cardiac Rehabilitation at [facility]. The patient agrees to a referral to this program. The referral will be sent at discharge and the patient should be contacted by the program within 1-2 weeks from discharge. Future Appointments and Orders Future Orders Complete By Expires Referral to Cardiac Rehab [[id number] Custom] As directed Process Instructions: If no progress note charted, please enter Clinical details in comments. Scheduling Instructions: Questions: My question or request is: s/p CABG- cardiac rehab at [facility] Referral to Home Health [REF34 Custom] As directed Process Instructions: If no progress note charted, please enter Clinical details in comments. Scheduling Instructions: Comments: Please evaluate George Mehta for admission to Home Health. 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 [address] [place] [id number] RN orders: Cardiopulmonary assessment, incisional assessment, assess [...] issues please call the Cardiology Office at [phone] FOR MEDICARE ONLY: (please delete this section [...] care: As above. Signed: KEILA HANLEY APRN [facility] [place], [place] [address] FAX [phone] Date: 06/21/2024 CC: MD Antonino Tinajero Joshua R, PA [address] [place] [address] [place] [address] documented in this encounter Discharge Instructions * [...] 2 tablespoons of dried fruit. Milk and sq-zouyu-jlhlx yogurt have 15 grams of carbs in a serving. A serving is 1 cup of milk or 3/4 cup (6 oz) of ns-rslgz-xbvyh yogurt. Starchy vegetables have 15 grams of carbs in a serving. A serving is ?? cup of mashed potatoes or sweet potato; 1 cup winter squash; ?? of a small baked potato; ?? cup of cooked beans; or ?? cup cooked corn or green peas. Learn how much carbs to eat each day and at each meal. A dietitian or certified registered nurse practitioner can teach you how to keep track [...] from your chest incision. Your surgeon, Dr. oBbby Ljoa and/or the Cardiac Surgery Physician Casting Repairer Team may be reached at . Weight: [...] Dr. Bobby Loja. You may use a [place] Track or treadmill but avoid any pulling [...] friends, go to a movie, go to nondenominational, etc. Heavy activities: No hunting, skiing, jogging, [...] should resume a low fat, low cholesterol, [place] Heart [employer] Diet/Diabetic diet. Driving: No driving [...] while being managed by your PCP and/or Barrel Charrer Helper. For future medication refills, please refer to your PCP and/or Barrel Charrer Helper after your discharge from our service. Thank you REMOVE CHEST TUBE SUTURES ON OR AFTER 06/24/2024 Home oxygen therapy: N/A Follow up appointments: You should follow up with your PCP, Mauro Berumen MD, in 1-2 weeks. You should follow up with your Barrel Charrer Helper, Dr CARDENAS. You have an appointment with your Cardiac Surgeon, Dr. Bobby Loja, in 4 wks. Cardiac Rehabilitation: George Mehta was seen today regarding participation in the outpatient Phase 2 Cardiac Rehabilitation at [facility]. The patient agrees to a referral [...] RN - 06/21/2024 8:32 AM EST During [facility] Purposeful Rounding, an assessment of your patient's venous access was performed [facility] theVascular Access Service. The following tasks [...] RN - 06/21/2024 8:31 AM EST During [facility] Purposeful Rounding, an assessment of your patient's venous access was performed [facility] theVascular Access Service. The following tasks [...] or weekly) [] Other * Alejandra Baumann, ULTRASOUND TECHNOL - 06/21/2024 7:05 AM EST Follow Up [...] MARIALUISA clipping. PMH of chronic HFrEF s/p PRIZE FIGHTER/ICD, IDDM2, HTN, HLD, remote melanoma, active smoker. [...] 2 tablespoons of dried fruit. Milk and nl-blucj-cngnx yogurt have 15 grams of carbs in a serving. A serving is 1 cup of milk or 3/4 cup (6 oz) of fv-jwcbz-rctco yogurt. Starchy vegetables have 15 grams of carbs in a serving. A serving is ?? cup of mashed potatoes or sweet potato; 1 cup winter squash; ?? of a small baked potato; ?? cup of cooked beans; or ?? cup cooked corn or green peas. Learn how much carbs to eat each day and at each meal. A dietitian or certified registered nurse practitioner can teach you how to keep track [...] cheese, and peanut butter. Alejandra Baumann APRN [facility] Endocrinology Diabetes Management Pager [phone] Weekends please page [phone] * Eric Packer PA - 06/20/2024 7:44 AM EST Cardiac Surgery Progress Note George Mehta is a 69 y.o. male with a history of CAD s/p multiple PCI who presented with an anterior STEMI and was given lytics. Cath showed MV CAD without culprit vessel. He is now 6 Days Post-OpCABGx3 and MARIALUISA clipping. PMH of chronic HFrEF s/p PRIZE FIGHTER/ICD, IDDM2, HTN, HLD, remote melanoma, active smoker. 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 06/20/2024 Between the hours of 1800 - 0600 and on the weekends please page [phone]. * Alejandra Baumann APRN - 06/20/2024 7:21 AM EST Follow Up Diabetes Consult Patient Interview Blood glucose values and insulin use reviewed. sort supervisor BG to 59 despite decrease in glargine [...] MARIALUISA clipping. PMH of chronic HFrEF s/p PRIZE FIGHTER/ICD, IDDM2, HTN, HLD, remote melanoma, active smoker. sort supervisor BG to 59 despite decrease in glargine [...] before meals based on ISF 20 Alejandra Keya Paha, ULTRASOUND TECHNOL [facility] Endocrinology Diabetes Management Pager [phone] Weekends please page [phone] Insulin Discharge Instructions Preliminary Diabetes Discharge Instructions [...] juice or regular (not diet) soda 6 Snabboteket small box of raisins 4 glucose tablets [...] 2 tablespoons of dried fruit. Milk and ty-yneeo-imczv yogurt have 15 grams of carbs in a serving. A serving is 1 cup of milk or 3/4 cup (6 oz) of mk-fahtn-zoatt yogurt. Starchy vegetables have 15 grams of carbs in a serving. A serving is ?? cup of mashed potatoes or sweet potato; 1 cup winter squash; ?? of a small baked potato; ?? cup of cooked beans; or ?? cup cooked corn or green peas. Learn how much carbs to eat each day and at each meal. A dietitian or certified registered nurse practitioner can teach you how to keep track [...] MARIALUISA clipping. PMH of chronic HFrEF s/p PRIZE FIGHTER/ICD, IDDM2, HTN, HLD, remote melanoma, active smoker. [...] y.o. male 5 Days Post-Op CABGx3 and MARIAULISA clip. 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 Jeffy Hood MD 06/19/2024 Between the hours of 1800 - 0600 and on the weekends please page [phone]. * Alejandra Baumann APRN - 06/19/2024 7:09 AM EST Follow Up Diabetes Consult Patient Interview Blood glucose values and insulin use reviewed. Jardiance added back yesterday, high reach operator low BGto 51. Glargine reduced to 45 [...] MARIALUISA clipping. PMH of chronic HFrEF s/p PRIZE FIGHTER/ICD, IDDM2, HTN, HLD, remote melanoma, active smoker. Jardiance added back yesterday. sort supervisor low BG to 51. Glargine reduced to [...] 2 tablespoons of dried fruit. Milk and av-tfbkk-tikfw yogurt have 15 grams of carbs in a serving. A serving is 1 cup of milk or 3/4 cup (6 oz) of by-pcrfl-guifc yogurt. Starchy vegetables have 15 grams of carbs in a serving. A serving is ?? cup of mashed potatoes or sweet potato; 1 cup winter squash; ?? of a small baked potato; ?? cup of cooked beans; or ?? cup cooked corn or green peas. Learn how much carbs to eat each day and at each meal. A dietitian or certified registered nurse practitioner can teach you how to keep track [...] cheese, and peanut butter. Alejandra Baumann APRN [facility] Endocrinology Diabetes Management Pager [phone] Weekends please page [phone] * Hilda Resendez PTA - 06/18/2024 9:19 AM EST Physical Therapy Note 2 Patient profile: George Mehta is a 69 y.o. male with a history of CAD s/p multiple PCI who presented with an anterior STEMI and was given lytics. Cath showed MV CAD without culprit vessel. He is now 1 Day Post-Op CABGx3 and MARIALUISA clipping. PMH of chronic HFrEF s/p PRIZE FIGHTER/ICD, IDDM2, HTN, HLD, remote melanoma, active smoker. Interval History: Per last cardiac surgery note on 06/18/2024 Cr improved 1.4 on lasix 40 iv bid -1.5L, made 2.5L urine Coreg, entresto restarted Floor status Social History: Pt lives with his in a 1 level apartment with no steps to enter. 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 He drives. He sleeps in a recliner at baseline. Precautions/Special Considerations: Sternal precautions, PIV, at risk to fall, PPM Mobility and Positioning Recommendations: Pt to utilize no AD, supervision for ambulation and transfers w/ staff analyst as able. Please encourage up to chair [...] least restrictive device Time IN / OUT: 0362-4455 Total Time: 11 minutes; TEF 1 Hilda Resendez PTA Pager: [phone] Physical Therapy Inpatient Rehabilitation Department * Keila [...] MARIALUISA clipping. PMH of chronic HFrEF s/p PRIZE FIGHTER/ICD, IDDM2, HTN, HLD, remote melanoma, active smoker. 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 Restarting jardiance #Active smoker Duoneb prn Dispo: CVCC, Full code, tx to floor Discussed with attending surgeon on rounds this morning. KEILA HANLEY, JOSÉ ANTONIO 06/18/2024 Between the hours of 1800 - 0600 and on the weekends please page [phone]. * Alejandra Baumann APRN - 06/17/2024 3:29 [...] MARIALUISA clipping. PMH of chronic HFrEF s/p PRIZE FIGHTER/ICD, IDDM2, HTN, HLD, remote melanoma, active smoker. [...] based on ISF 20 Alejandra Baumann APRN [facility] Endocrinology Diabetes Management Pager [phone] Weekends please page [phone] 35 minutes were spent over the course [...] MARIALUISA clipping. PMH of chronic HFrEF s/p PRIZE FIGHTER/ICD, IDDM2, HTN, HLD, remote melanoma, active smoker. [...] 0600 and on the weekends please page [phone]. * Raymond Carlton MD - 06/16/2024 1:11 PM EST CARDIAC CRITICAL CARE ATTENDING STAFF PROGRESS NOTE Patient seen and examined. George Mehta is a 69 y.o. male with: Active Hospital Problems Diagnosis STEMI (ST elevation myocardial infarction) Cardiac resynchronization therapy defibrillator (PRIZE FIGHTER-D) - Medtronic Amplia Cardiomyopathy, ischemic Acute on chronic heart failure with reduced ejection fraction (HFrEF, <= 40%) Coronary artery disease involving shinnecock coronary artery of shinnecock heart without angina pectoris Type 2 diabetes [...] encouragement provided Patient screened for f/u and public relations writer met pt at bedside. Pt states [...] unless consulted in the interim. RICHA Simmons Jewelry Cutter * Octaviano Horvath PA - 06/16/2024 8:07 AM EST Cardiac Surgery Progress Note George Mehta is a 69 y.o. male with a history of CAD s/p multiple PCI who presented with an anterior STEMI and was given lytics. Cath showed MV CAD without culprit vessel. He is now 2 Days Post-OpCABGx3 and MARIALUISA clipping. PMH of chronic HFrEF s/p PRIZE FIGHTER/ICD, IDDM2, HTN, HLD, remote melanoma, active smoker. [...] 0600 and on the weekends please page [phone]. * Jono Fernandez, PT - 06/15/2024 4:09 PM EST Physical Therapy Evaluation Patient profile: George Mehta is a 69 y.o. male with a history of CAD s/p multiple PCI who presented with an anterior STEMI and was given lytics. Cath showed MV CAD without culprit vessel. He is now 1 Day Post-Op CABGx3 and MARIALUISA clipping. PMH of chronic HFrEF s/p PRIZE FIGHTER/ICD, IDDM2, HTN, HLD, remote melanoma, active smoker. 24h Events: From OR on Dobutamine IABP removed Bedrest ended ~2100, sedation weaned Extubated ~0200 Dobutamine weaned to 1 this morning, CI 2.6, shut off and repeat CI 2.4 Social History: Pt lives with his in a 1 level apartment with no steps to enter. 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 He drives. He sleeps [...] outlined inthis evaluation. JONO FERNANDEZ, PT Pager: [phone] Physical Therapy Inpatient Rehabilitation Department Time IN / OUT: 2858-7695 Total Time: 33 (eval) minutes * Alejandra Baumann APRN - 06/15/2024 11:39 AM EST Follow Up Diabetes Consult Patient Interview Blood glucose values and insulin use reviewed. Pt remains on an insulin drip today following [id number] MARIALUISA clipping. George continues to complain of [...] MARIALUISA clipping. PMH of chronic HFrEF s/p PRIZE FIGHTER/ICD, IDDM2, HTN, HLD, remote melanoma, active smoker. [...] based on ISF 20 Alejandra Baumann APRN [facility] Endocrinology Diabetes Management Pager [phone] Weekends please page [phone] 50 minutes were spent over the course [...] elevation myocardial infarction) Cardiac resynchronization therapy defibrillator (PRIZE FIGHTER-D) - Medtronic Amplia Cardiomyopathy, ischemic Acute on chronic heart failure with reduced ejection fraction (HFrEF, <= 40%) Coronary artery disease involving shinnecock coronary artery of shinnecock heart without angina pectoris Type 2 diabetes [...] with h/o DM, CAD with prior PCI, PRIZE FIGHTER-D who presented with crushing chest pain, found [...] MARIALUISA clipping. PMH of chronic HFrEF s/p PRIZE FIGHTER/ICD, IDDM2, HTN, HLD, remote melanoma, active smoker. [...] sternotomy dressing CDI, saphenectomy dressing CDi Tubes/Lines/Drains: [place], RIJ, A-line, Mediastinal marcos and bilateral pleural [...] 0600 and on the weekends please page [phone]. * Yoli Donaldson RCP - 06/15/2024 5:35 [...] with h/o DM, CAD with prior PCI, PRIZE FIGHTER-D who presented with crushing chest pain, found [...] 1.5 PTT 31 T/L/D Barr ETT CVL [place] CT Pacing wires ASSESSMENT, MANAGEMENT, and DECISION MAKIN y.o. male with h/o DM, CAD with prior PCI, PRIZE FIGHTER-D who presented with crushing chest pain, found [...] 0600 and on the weekends please page [phone]. * Chloé Cortez - 06/14/2024 9:36 AM [...] unless consulted in the interim. Chloé Cortez Audio Tape Librarian * Jim Benites MD - 06/13/2024 1:15 [...] - Mildly dilated left ventricle size with noehayuy-nb-capnamox decreased LV systolic function. LV ejection fraction [...] elevation myocardial infarction) Cardiac resynchronization therapy defibrillator (PRIZE FIGHTER-D) - Medtronic Amplia Cardiomyopathy, ischemic Acute on chronic heart failure with reduced ejection fraction (HFrEF, <= 40%) Coronary artery disease involving shinnecock coronary artery of shinnecock heart without angina pectoris Type 2 diabetes [...] PCP: Mauro Berumen MD PCP phone number: [phone] Date of Admission: 06/02/2024 ( Hospital Day 10 days ) Attending:Ethel Carrillo MD ID: 69 y.o. male with a h/o DM type 2, HTN, HLD, current smoker (2-3 cigarettes/day), HFrEF with anICD for low EF (~30%), and CAD with prior ND x3 with JENNA placed in [place], [facility], PAD, presented to [facility] with 1 hour of retrosternal CP (05/13) while watching TV, found to have STEMI. Active Problems: Active Hospital Problems Diagnosis STEMI (ST elevation myocardial infarction) Cardiac resynchronization therapy defibrillator (PRIZE FIGHTER-D) - Medtronic Amplia Cardiomyopathy, ischemic Acute on chronic heart failure with reduced ejection fraction (HFrEF, <= 40%) Coronary artery disease involving shinnecock coronary artery of shinnecock heart without angina pectoris Type 2 diabetes [...] in the last 7068 hours. Invalid input(s): [id number] Recent Labs 06/12/24 0425 06/11/24 2356 06/11/24 2025 06/11/24 1624 06/11/24 1108 06/11/24 0748 06/11/24 0357 06/11/24 0050 06/10/24 1922 06/10/24 1735 06/10/24 1125 06/10/24 0746 POCGLU 132 135 210* 81 233* 184 132 144 236* 123 216* 206* Heme No results for input(s): LDH, HAPTOGLOBIN, URICACID in the last 168 hours. ABG (Arterial Blood Gas) No results found for: PHART, PO2ART, BIS9FDS, NPD1ZYC Microbiology: Microbiology Results (Last 30 days) No results found for the last 720 hours. Imaging: Results for orders placed or performed during the hospital encounter of 06/02/24 XR Chest One View (Exam End: 06/03/2024 2:41 AM) Result Value WORKSTATION ID [id number] Impression No radiographically evident acute cardiopulmonary process. Thank you for letting us participate in the care of this patient. If you are a health care provider and have any questions regarding this report, please contact the number below. For patients who have questions please contact the health patient care associate that requested your imaging first. Electronically signed by: Corazon Mauro MD, [facility] ([phone]), at 06/03/2024 3:06 AM MRI Cardiac Morphology Function wwo Contrast (Exam End: 06/07/2024 1:10 PM) Result Value WORKSTATION ID [id number] Impression - Findings consistent with an ischemic [...] - Mildly dilated left ventricle size with ilbtjwks-bg-sezxuczw decreased LV systolic function. LV ejection fraction [...] who have questions please contact the health patient care associate that requested your imaging first. Electronically signed by: Kriss Alonzo MD, [facility] ([phone]), at 06/07/2024 2:[address] Chest wo Contrast (Generic) (Exam End: 06/03/2024 4:33 PM) Result Value WORKSTATION ID [id number] Impression Cardiomegaly. Biventricular ICD leads in place. Thank you for letting us participate in the care of this patient. If you are a health care provider and have any questions regarding this report, please contact the number below. For patients who have questions please contact the health patient care associate that requested your imaging first. Electronically signed by: Stuart Aponte MD, [facility] ([phone]), at 06/03/2024 4:47 PM XR Chest PA & Lateral (Generic) (Exam End: 06/07/2024 7:03 AM) Result Value WORKSTATION ID [id number] Impression Biventricular ICD leads intact and in [...] who have questions please contact the health patient care associate that requested your imaging first. Electronically signed by: Stuart Aponte MD, [facility] ([phone]), at 06/07/2024 10:45 AM TTE: Limited echo performed by fellow press set up person to assess LV function. Left ventricle [...] Patient stable, asymptomatic. Plan to go to blood bank laboratory professional for balloon pump tomorrow, then willgo to [...] CODE Dain Colón MD Cardiology, M1-S2, Pager #[phone] 06/12/24 Associated attestation - Ethel Carrillo MD [...] of two midnights or is on the [facility] inpatient only procedure list (status C) due to: acute myocardial infarction requiring titration of IV medication and fluid monitoring and decompensated congestive heart failure requiring IV medication and fluid monitoring Ethel Carrillo MD Cardiovascular Medicine Personal Pager [phone] 06/12/2024 9:12 PM * Jaleesa Bamuannewa Adams, ULTRASOUND TECHNOL - 06/11/2024 4:21 PM EST Images from [...] too aggressive, suggest ICR 1:6 (rule of [id number] = 6.25). George is up and walking [...] ac, metformin 1000mg BID Alejandra Baumann APRN [facility] Endocrinology Diabetes Management Pager [phone] Weekends please page [phone] 35 minutes were spent over the course [...] PCP: Mauro Berumen MD PCP phone number: [phone] Date of Admission: 06/02/2024 ( Hospital Day 9 days ) Attending:Melida Valdes MD ID: 69 y.o. male with a h/o DM type 2, HTN, HLD, current smoker (2-3 cigarettes/day), HFrEF with anICD for low EF (~30%), and CAD with prior ND x3 with JENNA placed in [place], [facility], PAD, presented to [facility] with 1 hour of retrosternal CP (05/13) while watching TV, found to have STEMI. Active Problems: Active Hospital Problems Diagnosis STEMI (ST elevation myocardial infarction) Cardiac resynchronization therapy defibrillator (PRIZE FIGHTER-D) - Medtronic Amplia Cardiomyopathy, ischemic Acute on chronic heart failure with reduced ejection fraction (HFrEF, <= 40%) Coronary artery disease involving shinnecock coronary artery of shinnecock heart without angina pectoris Type 2 diabetes [...] in the last 7068 hours. Invalid input(s): [id number] Recent Labs 06/11/24 0357 06/11/24 0050 06/10/24 1922 06/10/24 1735 06/10/24 1125 06/10/24 0746 06/10/24 0423 06/10/24 0005 06/09/24 2036 06/09/24 1727 06/09/24 1152 06/09/24 0810 POCGLU 132 144 236* 123 216* 206* 154 125 197 174 211* 209* Heme No results for input(s): LDH, HAPTOGLOBIN, URICACID in the last 168 hours. ABG (Arterial Blood Gas) No results found for: PHART, PO2ART, HAN1OCI, ZJZ2GUX Microbiology: Microbiology Results (Last 30 days) No results found for the last 720 hours. Imaging: Results for orders placed or performed during the hospital encounter of 06/02/24 XR Chest One View (Exam End: 06/03/2024 2:41 AM) Result Value WORKSTATION ID [id number] Impression No radiographically evident acute cardiopulmonary process. Thank you for letting us participate in the care of this patient. If you are a health care provider and have any questions regarding this report, please contact the number below. For patients who have questions please contact the health patient care associate that requested your imaging first. Electronically signed by: Corazon Mauro MD, [facility] ([phone]), at 06/03/2024 3:06 AM MRI Cardiac Morphology Function wwo Contrast (Exam End: 06/07/2024 1:10 PM) Result Value WORKSTATION ID [id number] Impression - Findings consistent with an ischemic [...] - Mildly dilated left ventricle size with njlghvke-mn-owfvexcq decreased LV systolic function. LV ejection fraction [...] who have questions please contact the health patient care associate that requested your imaging first. Electronically signed by: Kriss Alonzo MD, [facility] ([phone]), at 06/07/2024 2:[address] Chest wo Contrast (Generic) (Exam End: 06/03/2024 4:33 PM) Result Value WORKSTATION ID [id number] Impression Cardiomegaly. Biventricular ICD leads in place. Thank you for letting us participate in the care of this patient. If you are a health care provider and have any questions regarding this report, please contact the number below. For patients who have questions please contact the health patient care associate that requested your imaging first. Electronically signed by: Stuart Aponte MD, [facility] ([phone]), at 06/03/2024 4:47 PM XR Chest PA & Lateral (Generic) (Exam End: 06/07/2024 7:03 AM) Result Value WORKSTATION ID [id number] Impression Biventricular ICD leads intact and in [...] who have questions please contact the health patient care associate that requested your imaging first. Electronically signed by: Stuart Aponte MD, [facility] ([phone]), at 06/07/2024 10:45 AM TTE: Limited echo performed by fellow press set up person to assess LV function. Left ventricle [...] on placing this weekend and transfer to [facility], likely [place]. #ASCVD / STEMI: -Holding [...] CODE Dain Colón MD Cardiology, M1-S2, Pager #[phone] 06/11/24 Associated attestation - Ethel Carrillo MD [...] of two midnights or is on the [facility] inpatient only procedure list (status C) due to: acute myocardial infarction requiring titration of IV medication and fluid monitoring and decompensated congestive heart failure requiring IV medication and fluid monitoring Ethel Carrillo MD Cardiovascular Medicine Personal Pager [phone] 06/11/2024 9:35 PM * Hilary Belle - 06/10/2024 12:39 PM EST Nutrition Services Note George Mehta is a 69 y.o. male Reason for intervention: hospital day 9 Nutrition Plan: Continue diet order: 60/60/75 CHO Level 2 Encourage good PO Lasix and Insulin noted Monitor weight Patient scheduled for a hospital day 9 nutrition evaluation. Security Installation Sales Technician attempted to meet with pt at [...] unless consulted in the interim. Hilary Belle Jewelry Cutter * Mariia Montero RN - 06/10/2024 12:23 PM EST I have met with the patient to: discuss discharge planning needs. provide the [facility], Office of Care Management letter from the Cloth Bleaching Range Operator Chief pertaining to rehab referrals. provide a letter describing our affiliations within the [facility] and educate about their right to choose where referrals are sent. provide a list of Home Health Agencies / Durable Medical Equipment vendors which serve their preferred geographic area. provided patient with [facility] Star Quality Rating handout. They have requested referrals to: [facility] [address] [place] [id number] RN / PT Anticipated d/c date: 06/20/24 Note routed to a Reservation Sales Agent who will communicate referrals to facilities and provide any required information. * Dain Colón MD - 06/10/2024 7:17 AM EST Images from the original note were not included. . Cardiology Progress Note Patient info: Name: George Mehta : 1955 PCP: Mauro Berumen MD PCP phone number: [phone] Date of Admission: 06/02/2024 ( Hospital Day 8 days ) Attending:Melida Valdes MD ID: 69 y.o. male with a h/o DM type 2, HTN, HLD, current smoker (2-3 cigarettes/day), HFrEF with anICD for low EF (~30%), and CAD with prior ND x3 with JENNA placed in [place], Melanoma, PAD, presented to [facility] with 1 hour of retrosternal CP (05/13) while watching TV, found to have STEMI. Active Problems: Active Hospital Problems Diagnosis STEMI (ST elevation myocardial infarction) Cardiac resynchronization therapy defibrillator (PRIZE FIGHTER-D) - Medtronic Amplia Cardiomyopathy, ischemic Acute on chronic heart failure with reduced ejection fraction (HFrEF, <= 40%) Coronary artery disease involving shinnecock coronary artery of shinnecock heart without angina pectoris Type 2 diabetes [...] in the last 7068 hours. Invalid input(s): [id number] Recent Labs 06/10/24 0423 06/10/24 0005 06/09/24 2036 06/09/24 1727 06/09/24 1152 06/09/24 0810 06/09/24 0440 06/09/24 0034 06/08/24 2027 06/08/24 1616 06/08/24 1235 06/08/24 0810 POCGLU 154 125 197 174 211* 209* 131 186 176 159 226* 190 Heme No results for input(s): LDH, HAPTOGLOBIN, URICACID in the last 168 hours. ABG (Arterial Blood Gas) No results found for: PHART, PO2ART, JQQ2MHE, VSC3FTX Microbiology: Microbiology Results (Last 30 days) No results found for the last 720 hours. Imaging: Results for orders placed or performed during the hospital encounter of 06/02/24 XR Chest One View (Exam End: 06/03/2024 2:41 AM) Result Value WORKSTATION ID [id number] Impression No radiographically evident acute cardiopulmonary process. Thank you for letting us participate in the care of this patient. If you are a health care provider and have any questions regarding this report, please contact the number below. For patients who have questions please contact the health patient care associate that requested your imaging first. Electronically signed by: Corazon Mauro MD, [facility] ([phone]), at 06/03/2024 3:06 AM MRI Cardiac Morphology Function wwo Contrast (Exam End: 06/07/2024 1:10 PM) Result Value WORKSTATION ID [id number] Impression - Findings consistent with an ischemic [...] - Mildly dilated left ventricle size with pijbczag-cj-guofiabm decreased LV systolic function. LV ejection fraction [...] who have questions please contact the health patient care associate that requested your imaging first. Electronically signed by: Kriss Alonzo MD, [facility] ([phone]), at 06/07/2024 2:[address] Chest wo Contrast (Generic) (Exam End: 06/03/2024 4:33 PM) Result Value WORKSTATION ID [id number] Impression Cardiomegaly. Biventricular ICD leads in place. Thank you for letting us participate in the care of this patient. If you are a health care provider and have any questions regarding this report, please contact the number below. For patients who have questions please contact the health patient care associate that requested your imaging first. Electronically signed by: Stuart Aponte MD, [facility] ([phone]), at 06/03/2024 4:47 PM XR Chest PA & Lateral (Generic) (Exam End: 06/07/2024 7:03 AM) Result Value WORKSTATION ID [id number] Impression Biventricular ICD leads intact and in [...] who have questions please contact the health patient care associate that requested your imaging first. Electronically signed by: Stuart Aponte MD, [facility] ([phone]), at 06/07/2024 10:45 AM TTE: Limited echo performed by fellow press set up person to assess LV function. Left ventricle [...] plan on placing this and transfer to [facility], likely Friday. #ASCVD / STEMI: -Holding [...] CODE Dain Colón MD Cardiology, M1-S2, Pager #[phone] 06/10/24 Associated attestation - Melida Valdes MD [...] a lytic and brought directly to the Compressor Operator. Cardiac catheterization demonstrated multivessel disease with [...] who is agreeable Melida Valdes MD Staff Barrel Charrer Helper * Cherelle Fregoso APRN - 06/09/2024 8:59 [...] PCP: Mauro Berumen MD PCP phone number: [phone] Date of Admission: 06/02/2024 ( Hospital Day 7 days ) Attending:Melida Valdes MD ID: 69 y.o. male with a h/o DM type 2, HTN, HLD, current smoker (2-3 cigarettes/day), HFrEF with anICD for low EF (~30%), and CAD with prior ND x3 with JENNA placed in [place], Melanoma, PAD, presented to [facility] with 1 hour of retrosternal CP (05/13) while watching TV, found to have STEMI. Active Problems: Active Hospital Problems Diagnosis STEMI (ST elevation myocardial infarction) Acute on chronic heart failure with reduced ejection fraction (HFrEF, <= 40%) Coronary artery disease involving shinnecock coronary artery of shinnecock heart without angina pectoris Type 2 diabetes [...] in the last 7068 hours. Invalid input(s): [id number] Recent Labs 06/09/24 0440 06/09/24 0034 06/08/24 2027 06/08/24 1616 06/08/24 1235 06/08/24 0810 06/08/24 0409 06/07/24 2357 06/07/24 2005 06/07/24 1631 06/07/24 1105 06/07/24 1103 POCGLU 131 186 176 159 226* 190 151 188 118 174 221* 250* Heme No results for input(s): LDH, HAPTOGLOBIN, URICACID in the last 168 hours. ABG (Arterial Blood Gas) No results found for: PHART, PO2ART, QTP6OAD, YLI2UDV Microbiology: Microbiology Results (Last 30 days) No results found for the last 720 hours. Imaging: Results for orders placed or performed during the hospital encounter of 06/02/24 XR Chest One View (Exam End: 06/03/2024 2:41 AM) Result Value WORKSTATION ID [id number] Impression No radiographically evident acute cardiopulmonary process. Thank you for letting us participate in the care of this patient. If you are a health care provider and have any questions regarding this report, please contact the number below. For patients who have questions please contact the health patient care associate that requested your imaging first. Electronically signed by: Corazon Mauro MD, [facility] ([phone]), at 06/03/2024 3:06 AM MRI Cardiac Morphology Function wwo Contrast (Exam End: 06/07/2024 1:10 PM) Result Value WORKSTATION ID [id number] Impression - Findings consistent with an ischemic [...] - Mildly dilated left ventricle size with vbmjxjyj-jt-mhtvrqga decreased LV systolic function. LV ejection fraction [...] who have questions please contact the health patient care associate that requested your imaging first. Electronically signed by: Kriss Alonzo MD, [facility] ([phone]), at 06/07/2024 2:[address] Chest wo Contrast (Generic) (Exam End: 06/03/2024 4:33 PM) Result Value WORKSTATION ID [id number] Impression Cardiomegaly. Biventricular ICD leads in place. Thank you for letting us participate in the care of this patient. If you are a health care provider and have any questions regarding this report, please contact the number below. For patients who have questions please contact the health patient care associate that requested your imaging first. Electronically signed by: Stuart Aponte MD, [facility] ([phone]), at 06/03/2024 4:47 PM XR Chest PA & Lateral (Generic) (Exam End: 06/07/2024 7:03 AM) Result Value WORKSTATION ID [id number] Impression Biventricular ICD leads intact and in [...] who have questions please contact the health patient care associate that requested your imaging first. Electronically signed by: Stuart Aponte MD, [facility] ([phone]), at 06/07/2024 10:45 AM TTE: Limited echo performed by fellow press set up person to assess LV function. Left ventricle [...] Infusions: heparin (porcine) infusion 1,400 Units/hr (06/08/24 339) PRN Meds:.glucose 40% oral geL OR dextrose [...] CODE Dain Colón MD Cardiology, M1-S2, Pager #[phone] 06/09/24 Associated attestation - Melida Valdes MD [...] a lytic and brought directly to the Compressor Operator. Cardiac catheterization demonstrated multivessel disease with [...] insertion low EF. Melida Valdes MD Staff Barrel Charrer Helper * Alejandra Baumann, JOSÉ ANTONIO - 06/08/2024 [...] to optimize glucose control Alejandra Baumann APRN [facility] Endocrinology Diabetes Management Pager [phone] Weekends please page [phone] 35 minutes were spent over the course [...] PCP: Mauro Berumen MD PCP phone number: [phone] Date of Admission: 06/02/2024 ( Hospital Day 6 days ) Attending:Melida Valdes MD ID: 69 y.o. male with a h/o DM type 2, HTN, HLD, current smoker (2-3 cigarettes/day), HFrEF with anICD for low EF (~30%), and CAD with prior ND x3 with JENNA placed in [place], Melanoma, PAD, presented to [facility] with 1 hour of retrosternal CP (05/13) while watching TV, found to have STEMI. Active Problems: Active Hospital Problems Diagnosis STEMI (ST elevation myocardial infarction) Acute on chronic heart failure with reduced ejection fraction (HFrEF, <= 40%) Coronary artery disease involving shinnecock coronary artery of shinnecock heart without angina pectoris Type 2 diabetes [...] in the last 7068 hours. Invalid input(s): [id number] Recent Labs 06/08/24 0409 06/07/24 2357 06/07/24 2005 06/07/24 1631 06/07/24 1105 06/07/24 1103 06/07/24 0745 06/07/24 0425 06/07/24 0008 06/06/24201706/06/24 1539 06/06/24 1339 POCGLU 151 188 118 174 221* 250* 175 127 182 143 147 317* Heme No results for input(s): LDH, HAPTOGLOBIN, URICACID in the last 168 hours. ABG (Arterial Blood Gas) No results found for: PHART, PO2ART, QXR7TZK, DGW9VHU Microbiology: Microbiology Results (Last 30 days) No results found for the last 720 hours. Imaging: Results for orders placed or performed during the hospital encounter of 06/02/24 XR Chest One View (Exam End: 06/03/2024 2:41 AM) Result Value WORKSTATION ID [id number] Impression No radiographically evident acute cardiopulmonary process. Thank you for letting us participate in the care of this patient. If you are a health care provider and have any questions regarding this report, please contact the number below. For patients who have questions please contact the health patient care associate that requested your imaging first. Electronically signed by: Corazon Mauro MD, [facility] ([phone]), at 06/03/2024 3:06 AM MRI Cardiac Morphology Function wwo Contrast (Exam End: 06/07/2024 1:10 PM) Result Value WORKSTATION ID [id number] Impression - Findings consistent with an ischemic [...] - Mildly dilated left ventricle size with jcptlndi-ay-mchmnxzc decreased LV systolic function. LV ejection fraction [...] who have questions please contact the health patient care associate that requested your imaging first. Electronically signed by: Kriss Alonzo MD, [facility] ([phone]), at 06/07/2024 2:[address] Chest wo Contrast (Generic) (Exam End: 06/03/2024 4:33 PM) Result Value WORKSTATION ID [id number] Impression Cardiomegaly. Biventricular ICD leads in place. Thank you for letting us participate in the care of this patient. If you are a health care provider and have any questions regarding this report, please contact the number below. For patients who have questions please contact the health patient care associate that requested your imaging first. Electronically signed by: Stuart Aponte MD, [facility] ([phone]), at 06/03/2024 4:47 PM XR Chest PA & Lateral (Generic) (Exam End: 06/07/2024 7:03 AM) Result Value WORKSTATION ID [id number] Impression Biventricular ICD leads intact and in [...] who have questions please contact the health patient care associate that requested your imaging first. Electronically signed by: Stuart Aponte MD, [facility] ([phone]), at 06/07/2024 10:45 AM TTE: Limited echo performed by fellow press set up person to assess LV function. Left ventricle [...] Infusions: heparin (porcine) infusion 1,400 Units/hr (06/08/24 6372) PRN Meds:.insulin lispro, potassium chloride ER OR [...] CODE Dain Colón MD Cardiology, M1-S2, Pager #[phone] 06/08/24 Associated attestation - Melida Valdes MD [...] a lytic and brought directly to the Compressor Operator. Cardiac catheterization demonstrated multivessel disease with [...] Otherwise clinically stable Melida Valdes MD Staff Barrel Charrer Helper * Ross Manuel PA - 06/07/2024 12:00 PM EST Cardiac Electrophysiology CIED Interrogation/Programming Note Asked by MRI staff to evaluate and program Medtronic PRIZE FIGHTER-D to allow for MR imaging. Patient Active Problem List Diagnosis ','STEMI (ST elevation myocardial infarction) Acute on chronic heart failure with reduced ejection fraction (HFrEF, <= 40%) Coronary artery disease involving shinnecock coronary artery of shinnecock heart without angina pectoris Type 2 diabetes mellitus Device Data: MedthredUP Amplia MRI Quad PRIZE FIGHTER-D QNVN6IF #[id number] 06/16/2019 RA Medtronic 4076 CapSureFix Novus [id number] 06/16/2019 RV Medtronic [id number] 06/16/2019 LV Medtronic 4298 Attain Performa MRI [id number] 06/16/2019 DDD @ 50/130/130 Adaptive Bi-V and LV VF >188bpm ATP, 35j x6 FVT >188-222bpm burst 2, 35jx5 VT Battery longevity: 2.5yrs; charge time 4s P wave: 2.3mV R wave: >20.0mV Atrial impedance: 458 ohms RV impedance: 646 ohms LV impedance: 722 ohms Atrial threshold: 0.5V @ 0.4ms RV threshold: LV threshold: 1.75V @ 0.4ms AP 0.2% PRODUCT TRANSFER PUMPER 97.7% AT/AF 0% Impression and Plan: 1. Interrogated device to determine suitability for MRI 2. Programmed to MRI safe mode - VOO @ 70 3. Scan performed 4. Programming restored to baseline settings 5. Reinterrogated to verify appropriate function and settings 6. Device follow up as previously scheduled Provider: HENOK Meyer EP Consult attending physician: Libby Barton MD EP Consult positional pager #[phone](EPMD) EP Device interrogation positional pager # [phone] * Dain Colón MD - 06/07/2024 7:09 AM EST Images from the original note were not included. . Cardiology Progress Note Patient info: Name: George Mehta : 1955 PCP: Mauro Berumen MD PCP phone number: [phone] Date of Admission: 06/02/2024 ( Hospital Day 5 days ) Attending:Melida Valdes MD ID: 69 y.o. male with a h/o DM type 2, HTN, HLD, current smoker (2-3 cigarettes/day), HFrEF with anICD for low EF (~30%), and CAD with prior ND x3 with JENNA placed in [place], Melanoma, PAD, presented to [facility] with 1 hour of retrosternal CP (05/13) while watching TV, found to have STEMI. Active Problems: Active Hospital Problems Diagnosis STEMI (ST elevation myocardial infarction) Acute on chronic heart failure with reduced ejection fraction (HFrEF, <= 40%) Coronary artery disease involving shinnecock coronary artery of shinnecock heart without angina pectoris Type 2 diabetes [...] in the last 7068 hours. Invalid input(s): [id number] Recent Labs 06/07/24 0425 06/07/24 0008 06/06/24 2018 06/06/24 1539 06/06/24 1339 06/06/24 1134 06/06/24 0757 06/06/24 0653 06/05/24 2231 06/05/24 1622 06/05/24 1134 06/05/24 0727 POCGLU 127 182 143 147 317* 264* 195 187 238* 205* 211* 166 Heme No results for input(s): LDH, HAPTOGLOBIN, URICACID in the last 168 hours. ABG (Arterial Blood Gas) No results found for: PHART, PO2ART, DCE5VDB, DSJ8OMT Microbiology: Microbiology Results (Last 30 days) No results found for the last 720 hours. Imaging: Results for orders placed or performed during the hospital encounter of 06/02/24 XR Chest One View (Exam End: 06/03/2024 2:41 AM) Result Value WORKSTATION ID [id number] Impression No radiographically evident acute cardiopulmonary process. Thank you for letting us participate in the care of this patient. If you are a health care provider and have any questions regarding this report, please contact the number below. For patients who have questions please contact the health patient care associate that requested your imaging first. Electronically signed by: Corazon Mauro MD, [facility] ([phone]), at 06/03/2024 3:[address] Chest wo Contrast (Generic) (Exam End: 06/03/2024 4:33 PM) Result Value WORKSTATION ID [id number] Impression Cardiomegaly. Biventricular ICD leads in place. Thank you for letting us participate in the care of this patient. If you are a health care provider and have any questions regarding this report, please contact the number below. For patients who have questions please contact the health patient care associate that requested your imaging first. Electronically signed by: Stuart Aponte MD, [facility] ([phone]), at 06/03/2024 4:47 PM TTE: Limited echo performed by fellow press set up person to assess LV function. Left ventricle [...] Dain Colón MD (PGY-1) Cardiology, M1-S2, Pager #[phone] 06/07/24 Associated attestation - Melida Valdes MD [...] a lytic and brought directly to the Compressor Operator. Cardiac catheterization demonstrated multivessel disease with [...] for further guidance. Melida Valdes MD Staff Barrel Charrer Helper * Dain Colón MD - 06/06/2024 7:17 AM EST Images from the original note were not included. . Cardiology Progress Note Patient info: Name: George Mehta : 1955 PCP: Mauro Berumen MD PCP phone number: [phone] Date of Admission: 06/02/2024 ( Hospital Day 4 days ) Attending:Melida Valdes MD ID: 69 y.o. male with a h/o DM type 2, HTN, HLD, current smoker (2-3 cigarettes/day), HFrEF with anICD for low EF (~30%), and CAD with prior ND x3 with JENNA placed in [place], Melanoma, PAD, presented to [facility] with 1 hour of retrosternal CP (05/13) while watching TV, found to have STEMI. Active Problems: Active Hospital Problems Diagnosis STEMI (ST elevation myocardial infarction) Acute on chronic heart failure with reduced ejection fraction (HFrEF, <= 40%) Coronary artery disease involving shinnecock coronary artery of shinnecock heart without angina pectoris Type 2 diabetes [...] in the last 68 hours. Invalid input(s): [id number] Recent Labs 06/06/24 0653 06/05/24 2231 06/05/24 1622 06/05/24 1134 06/05/24 0727 06/04/24 1943 06/04/24 1526 06/04/24 1109 06/04/24 0711 06/03/24 2005 06/03/24 1748 06/03/24 1114 POCGLU 187 238* 205* 211* 166 175 154 188 182 136 191 166 Heme No results for input(s): LDH, HAPTOGLOBIN, URICACID in the last 168 hours. ABG (Arterial Blood Gas) No results found for: PHART, PO2ART, AFT5VUX, KYJ0QNA Microbiology: Microbiology Results (Last 30 days) No results found for the last 720 hours. Imaging: Results for orders placed or performed during the hospital encounter of 06/02/24 XR Chest One View (Exam End: 06/03/2024 2:41 AM) Result Value WORKSTATION ID [id number] Impression No radiographically evident acute cardiopulmonary process. Thank you for letting us participate in the care of this patient. If you are a health care provider and have any questions regarding this report, please contact the number below. For patients who have questions please contact the health patient care associate that requested your imaging first. Electronically signed by: Corazon Mauro MD, [facility] ([phone]), at 06/03/2024 3:[address] Chest wo Contrast (Generic) (Exam End: 06/03/2024 4:33 PM) Result Value WORKSTATION ID [id number] Impression Cardiomegaly. Biventricular ICD leads in place. Thank you for letting us participate in the care of this patient. If you are a health care provider and have any questions regarding this report, please contact the number below. For patients who have questions please contact the health patient care associate that requested your imaging first. Electronically signed by: Stuart Aponte MD, [facility] ([phone]), at 06/03/2024 4:47 PM TTE: Limited echo performed by fellow press set up person to assess LV function. Left ventricle [...] Dain Colón MD (PGY-1) Cardiology, M1-S2, Pager #[phone] 06/06/24 Associated attestation - Melida Valdes MD [...] a lytic and brought directly to the Compressor Operator. Cardiac catheterization demonstrated multivessel disease with [...] management. Help appreciated Melida Valdes MD Staff Barrel Charrer Helper * Frederick Dunn MD - 06/05/2024 8:13 AM EDT Images from the original note were not included. . Cardiology Progress Note Patient info: Name: George Mehta : 1955 PCP: Mauro Berumen MD PCP phone number: [phone] Date of Admission: 06/02/2024 ( Hospital Day 3 days ) Attending:Melida Valdes MD ID: 69 y.o. male with a h/o DM type 2, HTN, HLD, current smoker (2-3 cigarettes/day), HFrEF with anICD for low EF (~30%), and CAD with prior ND x3 with JENNA placed in [place], Melanoma, PAD, presented to [facility] with 1 hour of retrosternal CP [...] in the last 7068 hours. Invalid input(s): [id number] Recent Labs 06/05/24 1134 06/05/24 0727 06/04/24 1943 06/04/24 1526 06/04/24 1109 06/04/24 0711 06/03/24 2005 06/03/24 1748 06/03/24 1114 06/03/24 0754 06/02/24 2331 POCGLU 211* 166 175 154 188 182 136 191 166 195 156 Heme No results for input(s): LDH, HAPTOGLOBIN, URICACID in the last 168 hours. ABG (Arterial Blood Gas) No results found for: PHART, PO2ART, FNN9AKF, ILK9GZC Microbiology: Microbiology Results (Last 30 days) No results found for the last 720 hours. Imaging: Results for orders placed or performed during the hospital encounter of 06/02/24 XR Chest One View (Exam End: 06/03/2024 2:41 AM) Result Value WORKSTATION ID [id number] Impression No radiographically evident acute cardiopulmonary process. Thank you for letting us participate in the care of this patient. If you are a health care provider and have any questions regarding this report, please contact the number below. For patients who have questions please contact the health patient care associate that requested your imaging first. Electronically signed by: Corazon Mauro MD, [facility] ([phone]), at 06/03/2024 3:[address] Chest wo Contrast (Generic) (Exam End: 06/03/2024 4:33 PM) Result Value WORKSTATION ID [id number] Impression Cardiomegaly. Biventricular ICD leads in place. Thank you for letting us participate in the care of this patient. If you are a health care provider and have any questions regarding this report, please contact the number below. For patients who have questions please contact the health patient care associate that requested your imaging first. Electronically signed by: Stuart Aponte MD, [facility] ([phone]), at 06/03/2024 4:47 PM TTE: Limited echo performed by fellow press set up person to assess LV function. Left ventricle [...] all the information they need regarding the PRIZE FIGHTER-D.Plan for MRI tomorrow. Starting 40 mg IV [...] a lytic and brought directly to the Compressor Operator. Cardiac catheterization demonstrated multivessel disease with [...] maintenance of 40. Melida Valdes MD Staff Barrel Charrer Helper * Migel Javier RN - 06/05/2024 6:21 AM EDT Implanted device record scanned into: Chart Review-->Media-->External Cardiology-->03/25/2024. Medtronic [place]ia MRI Quad CRTD [id number] Serial #: [id number] DDD mode A + Bi/V Rates 50-130 Migel aJvier RN * Dain Colón MD - 06/04/2024 11:16 AM EDT Implant Records Requested Type: PRIZE FIGHTER-D Occ Therapy Asst: [employer]onic Product: [id number] Amplia MRI MRI compatibility: Compatible for 1.5-3 T Model #: [id number] Placed at: [place], [place] Records requested for MRI: 1. Operative report 2. Implant log I requested that these records be sent to our MRI department, Dani Colón MD 06/04/24 11:58 AM * Dain Colón MD - 06/04/2024 6:57 AM EDT Images from the original note were not included. . Cardiology Progress Note Patient info: Name: George Mehta : 1955 PCP: Mauro Berumen MD PCP phone number: [phone] Date of Admission: 06/02/2024 ( Hospital Day 2 days ) Attending:Delroy Fofana MD ID: 69 y.o. male with a h/o DM type 2, HTN, HLD, current smoker (2-3 cigarettes/day), HFrEF with anICD for low EF (~30%), and CAD with prior ND x3 with JENNA placed in [place], Melanoma, PAD, presented to [facility] with 1 hour of retrosternal CP [...] in the last 7068 hours. Invalid input(s): [id number] Recent Labs 06/03/24200406/03/24 1748 06/03/24 1114 06/03/24 0754 06/02/24 2331 POCGLU 136 191 166 195 156 Heme No results for input(s): LDH, HAPTOGLOBIN, URICACID in the last 168 hours. ABG (Arterial Blood Gas) No results found for: PHART, PO2ART, ZIV1ZLO, WFP7HMU Microbiology: Microbiology Results (Last 30 days) No results found for the last 720 hours. Imaging: Results for orders placed or performed during the hospital encounter of 06/02/24 XR Chest One View (Exam End: 06/03/2024 2:41 AM) Result Value WORKSTATION ID [id number] Impression No radiographically evident acute cardiopulmonary process. Thank you for letting us participate in the care of this patient. If you are a health care provider and have any questions regarding this report, please contact the number below. For patients who have questions please contact the health patient care associate that requested your imaging first. Electronically signed by: Corazon Mauro MD, [facility] ([phone]), at 06/03/2024 3:[address] Chest wo Contrast (Generic) (Exam End: 06/03/2024 4:33 PM) Result Value WORKSTATION ID [id number] Impression Cardiomegaly. Biventricular ICD leads in place. Thank you for letting us participate in the care of this patient. If you are a health care provider and have any questions regarding this report, please contact the number below. For patients who have questions please contact the health patient care associate that requested your imaging first. Electronically signed by: Stuart Aponte MD, [facility] ([phone]), at 06/03/2024 4:47 PM TTE: Limited echo performed by fellow press set up person to assess LV function. Left ventricle [...] -Lasix 40 mg IV given in the blood bank laboratory professional; assess diuretic response, consider re-dosing -Continue carvedilol; [...] a lytic and brought directly to the Compressor Operator. Cardiac catheterization demonstrated multivessel disease with [...] Friday -Diuresis with Jovanni Valdes MD Staff Barrel Charrer Helper * Fatmata Mcallister PT - 06/03/2024 3:29 [...] vs PCI) Fatmata Mcallister PT, MSPT Pager [phone] Inpatient Physical Therapy * Marlin Gómez MD [...] Marlin Gómez MD Cardiology S2, Pager # [phone] 06/03/2024 * Delroy Fofana MD - 06/03/2024 7:16 AM EDT Images from the original note were not included. . Cardiology Progress Note Patient info: Name: George Mehta : 1955 PCP: Mauro Berumen MD PCP phone number: [phone] Date of Admission: 06/02/2024 ( Hospital Day 1 day ) Attending:Nuha Rojo MD ID: 69 y.o. male with a h/o DM type 2, HTN, HLD, current smoker (2-3 cigarettes/day), HFrEF with anICD for low EF (~30%), and CAD with prior ND x3 with JENNA placed in [place], Melanoma, PAD, presented to [facility] with 1 hour of retrosternal CP [...] in the last 7068 hours. Invalid input(s): [id number] Recent Labs 06/02/24 2331 POCGLU 156 Heme No results for input(s): LDH, HAPTOGLOBIN, URICACID in the last 168 hours. ABG (Arterial Blood Gas) No results found for: PHART, PO2ART, YQS7GMU, UWZ5FEL Microbiology: Microbiology Results (Last 30 days) No results found for the last 720 hours. Imaging: Results for orders placed or performed during the hospital encounter of 06/02/24 XR Chest One View (Exam End: 06/03/2024 2:41 AM) Result Value WORKSTATION ID [id number] Impression No radiographically evident acute cardiopulmonary process. Thank you for letting us participate in the care of this patient. If you are a health care provider and have any questions regarding this report, please contact the number below. For patients who have questions please contact the health patient care associate that requested your imaging first. Electronically signed by: Corazon Mauro MD, [facility] ([phone]), at 06/03/2024 3:06 AM TTE: Limited echo performed by fellow press set up person to assess LV function. Left ventricle [...] -Lasix 40 mg IV given in the blood bank laboratory professional; assess diuretic response, consider re-dosing -Continue carvedilol; [...] of care per Dain Colón MD (medical chief technician). Please refer to his note above for details. Very pleasant 69 year old male but he is obese, diabetic, and he is a SMOKER with known prior CAD and moderately reduced LVEF (30%). He has a pacer. History of surgical resection of melanoma on his head. The patient was transferred overnight to [facility] as a STEMI. He was treated initially with a lytic (TNK) and brought directly to the blood bank laboratory professional. The cath demonstrated 3VD with diffuse disease [...] - 06/13/2024 10:58 AM EST ICU Blue (#[id number]) H&P Patient info: Name: George Mehta : 1955 PCP: Mauro Berumen MD PCP phone number: [phone] Date of Admission: 06/02/2024 ( Hospital Day 11 days ) Attending:Haja Byrnes MD ID: George Mehta is a 69 y.o. male with a h/o DM type 2, HTN, HLD, current smoker (2-3 cigarettes/day), HFrEF with an ICD for low EF (~30%), and CAD with prior ND x3 with JENNA placed in [place], Melanoma, PAD, presented to [facility] with 1 hour of retrosternal CP (05/13) while watching TV, foundto have STEMI. HPI: Shahnaz Scanlon H&P 06/02 69 y.o. male with a h/o DM type 2, HTN, HLD, current smoker (2-3 cigarettes/day), HFrEF with an ICD for low EF (~30%), and CAD with prior ND x3 with JENNA placed in [place], Melanoma, PAD, presented to [facility] with 1 hour of retrosternal CP (05/13) while watching TV. CP was non-radiating, not asso ciated with diaphoresis, nausea, or SOB. Denies orthopnea, MARTÍNEZ, palpitations, or LE edema. ECG showed findings consistent with anterior STEMI. He received TNK and was transferred for PCI. Coronary angiography showed a small, non-dominant RCA with jibc-fx-lbazudhk disease and a dominant,heavily calcified left system with prior stents in the LAD and OM. The LM bifurcates into the LAD and LCX, both heavily calcified. The proximal LCX has a 75% calcified, aneurysmal lesion, and an 80% calcified lesion distally before a large OM2. OM1 is a STONE AND PLATE PREPARER APPRENTICE with in-stent restenosis, filling retrograde via collaterals. [...] 40 mg Lasix was administered in the blood bank laboratory professional. Cardiac surgery was consulted and plan for [...] Blood Gas) No results for input(s): PHART, RJC9SXZ, PO2ART, TTG8DIA, LACTATEVEN, YKQ8OAV, PFRATIOART2 in the last 168 hours. VBG (Venous Blood Gas) Recent Labs 06/10/24 1742 PHVEN 7.34 PO2VEN 24 WLS1RIP 27.4 Mixed Venous Sat No results for input(s): G0ZHKF4 in the last 168 hours. Intake/Output Summary [...] in the last 7068 hours. Invalid input(s): DQQOSPOXKUI7W Recent Labs 06/13/24 0741 06/13/24 0325 06/12/24 2353 06/12/24 1932 06/12/24 1541 06/12/24 1121 06/12/24 0800 06/12/24 0425 06/11/24 2356 06/11/24 2025 06/11/24 1624 06/11/24 1108 POCGLU 126 99 141 158 113 207* 169 132 135 210* 81 233* Heme No results for input(s): LDH, HAPTOGLOBIN, URICACID in the last 168 hours. ABG (Arterial Blood Gas) No results for input(s): PHART, TPK3ZMX, PO2ART, VVJ0FHN, LACTATEVEN, RVG1IMR, PFRATIOART2 in the last 168 hours. VBG (Venous Blood Gas) Recent Labs 06/10/24 1742 PHVEN 7.34 PO2VEN 24 ZQG9KMA 27.4 Mixed Venous Sat No results for input(s): X4EZRW1 in the last 168 hours. Microbiology: Microbiology [...] (Give Meds) Daily Healthy Menu Choices/Cardiac diet ([facility]-Diet) DVT Prophylaxis: SCD GI Prophylaxis: None Dispo: [...] is in the chart Rebeca Prado MD Design Center Consultant PGY6 [phone] * Shahnaz Scanlon MD - [...] prior ND x3 with JENNA placed in [facility], presented to [facility] with 1 hour of retrosternal CP (05/13) while watching TV. CP was non-radiating, not assoc iated with diaphoresis, nausea, or SOB. Denies orthopnea, MARTÍNEZ, palpitations, or LE edema. ECG showed findings consistent with anterior STEMI. He received TNK and was transferred for PCI. Coronary angiography showed a small, non-dominant RCA with zgfr-zf-ohsbxdka disease and a dominant,heavily calcified left system with prior stents in the LAD and OM. The LM bifurcates into the LAD and LCX, both heavily calcified. The proximal LCX has a 75% calcified, aneurysmal lesion, and an 80% calcified lesion distally before a large OM2. OM1 is a STONE AND PLATE PREPARER APPRENTICE with in-stent restenosis, filling retrograde via collaterals. [...] 40 mg Lasix was administered in the blood bank laboratory professional. Past Medical History: As per HPI Significant [...] Affect: Mood normal. Behavior: Behavior normal. Diagnostics: [facility] 06/02/2024 Coronary angiography revealed small non [...] -Lasix 40 mg IV given in the blood bank laboratory professional; assess diuretic response. -Continue carvedilol; hold Entresto [...] & Follow-up Care: Contact information for follow-up [facility] [address] [facility] [address] Cardiac Rehab, [address] [address] JAMIE GRAMAJO confirmed with [facility] that they [...] Roberts RN - 06/18/2024 10:50 AM EST [facility] CARDIAC REHABILITATION George Mehta was seen today regarding participation in the outpatient Phase 2 Cardiac Rehabilitation at [facility]. The patient agrees to a referral [...] Agency/Support Group Needs: Homecare agency Agency Choices: [facility] Services: Medication checks, Registered Nurse, Physical Therapy Agency Referrals: pending clinical course and PT/OT recs [facility] [address] [facility] [address] PHONE: [phone] FAX: [phone] Transportation: family or friend will provide Barriers [...] MEDICARE Payor: [employer] MANAGED MEDICARE / Plan: [facility] MANAGED MEDICARE COMPLETE / Product Type: *No Product type* / Secondary Insurance: N/A Plan for discharge is: Home w/ Services Outpatient Agency/Support Group Needs: Homecare agency Agency Choices: [facility]: Medication checks, Registered Nurse, Physical Therapy Agency Referrals: pending clinical course and PT/OT recs [facility] [address] [place] [address] PHONE: [phone] FAX: [phone] Transportation: family or friend will provide Barriers [...] Loja MD - 06/14/2024 8:48 AM EST [facility] Operative Note Patient Name: George Mehta : [id number] MR#: [id number] Case Date: 06/14/2024 Surgeon: Surgeons and Role: * Bobby Loja MD - Primary * Rashi Bass PA - Physician Casting Repairer Preoperative diagnosis: CAD, MARIALUISA flickering mass on [...] procedures today and tomorrow. Report called to [facility] - all belongings with patient. PLAN MOVING FORWARD: cytogenetics laboratory manager and transfer to [facility]. INDIVIDUALIZED [...] No Patient is insured through: Primary Insurance: [facility] MANAGED MEDICARE Payor: [facility] MANAGED MEDICARE / Plan: [facility] MANAGED MEDICARE COMPLETE / Product Type: *No Product type* / Secondary Insurance: N/A Plan for discharge is: Home w/ Services Outpatient Agency/Support Group Needs: Homecare agency, Agency Choices: [facility] Home Health Services: Medication checks, Registered Nurse, Physical Therapy Agency Referrals: [facility] [address] [place] [address] RN / PT Routed 06/10 Transportation: family [...] with home health services when medically ready. dye tub tender/Industrial Engineering Technologist will continue to follow patient???s progress and remain available if situation changes for coordination of care, psychosocial support and/or discharge planning. Anticipated Date of Discharge: 06/18/2024 Mariia Montero RN Extension [phone] * Plan of Care - Migel Javier [...] No Patient is insured through: Primary Insurance: [employer] MEDICARE Payor: [employer] MANAGED MEDICARE / Plan: [facility] MANAGED MEDICARE COMPLETE / Product Type: [...] consult for high risk PCI vs CABG dye tub tender/Industrial Engineering Technologist will continue to follow patient???s progress and remain available if situation changes for coordination of care, psychosocial support and/or discharge planning. Anticipated Date of Discharge: 06/11/2024 Mariia Montero RN Extension [phone] * Plan of Care - Becca Hope [...] and to provide a review of supervisor laboratory animal facility diabetes care. Diabetes History: George Mehta has [...] Breakfast- varies - eggs with khoury or mohawk muffin Lunch- turkey sandwich Supper- meat and [...] Baumann APRN Endocrinology Diabetes Management Service Pager: [phone] Weekends please page [phone] 80 minute visit was spent in counseling [...] melanoma, and smoker who presented to [facility] last night via EMS after developing acute, severe chest pain while watching TV. Patient was ruled in for STEMI, given TNK, ASA, plavix, heparin gtt, and sent to [facility] for coronary angiography. LHC demonstrated severely calcified left coronary system with notable LCx 75/80% lesions and STONE AND PLATE PREPARER APPRENTICE OM1 with ISR with collateral retrograde filling, [...] is large. OM1 appears to be a STONE AND PLATE PREPARER APPRENTICE, with in stentrestenosis and fills retrograde via [...] y.o. male admitted with STEMI s/p TNK, [facility] showing multivessel CAD including ISR, no [...] to our service. Signed: Paula Treviño PA-C [facility] Section of Cardiac Surgery Date: 06/03/2024 * Initial Assessments - Catina Estrada MSW - 06/03/2024 10:32 AM EDT Office of Care Management Initial Assessment CHINA Humphrey reviewed record and discussed patient with Care Team. Source of Information: Team, bedside nurse, medical record, and Patient CERTIFIED REGISTERED NURSE PRACTITIONER Introduced self/reviewed role; services accepted. Admitted From: Transfer from another hospital Location: [facility] Reason for Hospitalization: Chest Pain [...] days) Any patient receiving care in [place] must abide by [place] law. The hierarchy [...] (i) The agent with financial power of commercial attorney or a conservator appointed in accordance [...] were you homeless or living in a penitentiary (including now)?: No In the past 12 months has the electric, gas, oil, or water [email or web address] threatened to shut off services in your [...] in the bathroom) Home Address confirmed as: [address] [place] [address] [facility] [address] Social & Family Supports: All names listed [...] Pertinent/Service Specific Information: Health/Prescription Coverage: Primary Insurance: [facility] MEDICARE Payor: [facility] MEDICARE / Plan: [employer] MANAGED MEDICARE COMPLETE / Product Type: *No Product type* / Secondary Insurance: N/A ; Prescription Coverage: Yes Preferred Pharmacy: [id number] - [facility], [place] - [address] [facility] [address] [place] [address] [place] Status: Patient is a : No Primary Care Provider confirmed: Mauro Berumen MD [phone] Patient/Caregiver Goals of Treatment: Potential Needs for [...] care as indicated. [facility], [phone]. [phone] * Brief Op Note - Angeles Gaxiola PA - 06/03/2024 12:23 AM EDT Preliminary Cardiac Catheterization Procedure Note: Patient Name: George Mehta : [id number] MR#: [id number] Case Date: 06/02/2024 - 06/03/2024 Daycare Manager: Surgeons and Role: * Nuha Shen MD - Primary * Angeles Gaxiola PA - Physician Casting Repairer Preoperative diagnosis: STEMI Postoperative diagnosis: * STEMI * Procedure(s) performed: RRA access [facility] Coronary angiogram IVUS LM/LAD/LCX Access: 6 [...] prior ND and 3 stents historically (in [place]) who presented to [facility] with 1 hour of rest chest [...] is large. OM1 appears to be a STONE AND PLATE PREPARER APPRENTICE, with in stentrestenosis and fills retrograde via [...] receive 40 mg of lasix in the blood bank laboratory professional. 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 Comment:Supplemental ranges: <140 mg/dL before meals <180 mg/dL all other times of the day. Blood CAPILLARY BLOOD / Unknown 06/21/2024 3:51 AM EST 06/21/2024 3:51 AM EST Bobby Loja MD POINT OF CARE TEST O RDERABLES [facility] [place] [address] * (ABNORMAL) Basic Metabolic Panel (06/21/2024 2:09 AM EST) Glucose 169 65 - 199 mg/dL 06/21/2024 3:[address] [facility] Comment:Glucose Concentratio n >=200 mg/dL plus symptoms is consistent with Diabetes Mellitus. Blood Urea Nitrogen 27(H) 10 - 20 mg/dL 06/21/2024 3:[address] [facility] Creatinine 1.24 0.80 - 1.50 mg/dL 06/21/2024 3:[address] [facility] Sodium 138 135 - 145 mMol/L 06/21/2024 3:10 AM [facility] Potassium 4.2 3.5 - 5.0 mMol/L 06/21/2024 3:10 AM [facility] Chloride 100 98 - 107 mMol/L 06/21/2024 3:10 AM [facility] Carbon Dioxide 27 22 - 31 mMol/L 06/21/2024 3:10 AM [facility] Anion Gap 11 5 - 15 mMol/L 06/21/2024 3:10 AM [facility] Calcium 8.7 8.5 - 10.5 mg/dL 06/21/2024 3:10 AM [facility] Est Glomerular Filtration Rate - Male 64 mL/min/1. 73 m?? 06/21/2024 3:10 [address] [facility] Comment: [...] APRN CHEMISTRY ORDERABL ES Performing Organization Address City/[facility]/ZIP Co de Phone Number [facility] [place] [address] * POC, GLUCOSE (06/21/2024 12:04 AM EST) Glucometer, POC 157 65 - 199 mg/dL 06/21/2024 12:[address] [facility] Comment:Supplemental ranges: <140 mg/dL before meals <180 mg/dL all other times of the day. Blood CAPILLARY BLOOD / Unknown 06/21/2024 12:04 AM EST 06/21/2024 12:04 AM EST Bobby Loja MD POINT OF CARE TEST O NIKA Performing Organization Address [facility] Co de Phone Number [facility] [place] [address] * POC, GLUCOSE (06/20/2024 11:14 PM EST) Glucometer, POC 67 65 - 199 mg/dL 06/20/2024 11:[address] [facility] Comment:Supplemental ranges: <140 mg/dL before meals <180 mg/dL all other times of the day. Blood CAPILLARY BLOOD / Unknown 06/20/2024 11:14 PM EST 06/20/2024 11:14 PM EST Bobby Loja MD POINT OF CARE TEST O RDERAPIETER Performing Organization Address City/[facility]/ZIP Co de Phone Number [facility] [place] [address] * POC, GLUCOSE (06/20/2024 7:16 PM EST) Glucometer, POC 132 65 - 199 mg/dL 06/20/2024 7:[address] [facility] Comment:Supplemental ranges: <140 mg/dL before meals <180 mg/dL all other times of the day. Blood CAPILLARY BLOOD / Unknown 06/20/2024 7:16 PM EST 06/20/2024 7:16 PM EST Bobby Loja MD POINT OF CARE TEST O NIKA Performing Organization Address City/[facility]/ZIP Co de Phone Number [facility] [place] [address] * POC, GLUCOSE (06/20/2024 3:39 PM EST) Glucometer, POC 124 65 - 199 mg/dL 06/20/2024 3:[address] [facility] Comment:Supplemental ranges: <140 mg/dL before meals <180 mg/dL all other times of the day. Blood CAPILLARY BLOOD / Unknown 06/20/2024 3:39 PM EST 06/20/2024 3:40 PM EST Bobby Loja MD POINT OF CARE TEST O NIKA Performing Organization Address [facility] Co de Phone Number [facility] [place] [address] * POC, GLUCOSE (06/20/2024 12:02 PM EST) Glucometer, POC 173 65 - 199 mg/dL 06/20/2024 12:[address] [facility] Comment:Supplemental ranges: <140 mg/dL before meals <180 mg/dL all other times of the day. Blood CAPILLARY BLOOD / Unknown 06/20/2024 12:02 PM EST 06/20/2024 12:03 PM EST Bobby Loja MD POINT OF CARE TEST O NIKA Performing Organization Address City/[facility]/ZIP Co de Phone Number [facility] [place] [address] * POC, GLUCOSE (06/20/2024 7:10 AM EST) Glucometer, POC 130 65 - 199 mg/dL 06/20/2024 7:[address] [facility] Comment:Supplemental ranges: <140 mg/dL before meals <180 mg/dL all other times of the day. Blood CAPILLARY BLOOD / Unknown 06/20/2024 7:10 AM EST 06/20/2024 7:11 AM EST Bobby Loja MD POINT OF CARE TEST O RDERABLES [facility] [place] [address] * (ABNORMAL) Basic Metabolic Panel (06/20/2024 2:28 AM EST) Glucose 79 65 - 199 mg/dL 06/20/2024 3:[address] [facility] Comment:Glucose Concentratio n >=200 mg/dL plus symptoms is consistent with Diabetes Mellitus. Blood Urea Nitrogen 38(H) 10 - 20 mg/dL 06/20/2024 3:06 [address] [facility] Creatinine 1.39 0.80 - 1.50 mg/dL 06/20/2024 3:06 AM [facility] Sodium 137 135 - 145 mMol/L 06/20/2024 3:06 [address] [facility] Potassium 3.6 3.5 - 5.0 mMol/L 06/20/2024 3:06 [address] [facility] Chloride 100 98 - 107 mMol/L 06/20/2024 3:06 AM [facility] Carbon Dioxide 29 22 - 31 mMol/L 06/20/2024 3:06 AM [facility] Anion Gap 8 5 - 15 mMol/L 06/20/2024 3:06 AM [facility] Calcium 8.4(L) 8.5 - 10.5 mg/dL 06/20/2024 3:06 [address] [facility] Est Glomerular Filtration Rate - Male 56 mL/min/1. 73 m?? 06/20/2024 3:[address] [facility] Comment: [...] APRN CHEMISTRY ORDERABL ES Performing Organization Address City/[facility]/ZIP Co de Phone Number [facility] [place] [address] * POC, GLUCOSE (06/20/2024 12:32 AM EST) Glucometer, POC 86 65 - 199 mg/dL 06/20/2024 12:[address] [facility] Comment:Supplemental ranges: <140 mg/dL before meals <180 mg/dL all other times of the day. Blood CAPILLARY BLOOD / Unknown 06/20/2024 12:32 AM EST 06/20/2024 12:32 AM EST Bobby Loja MD POINT OF CARE TEST O RDERABLES [facility] [place] [address] * (ABNORMAL) POC, GLUCOSE (06/20/2024 12:02 AM [...] CARE TEST O NIKA Performing Organization Address City/[facility] Co de Phone Number [facility] [place] [address] * POC, GLUCOSE (06/19/2024 8:15 PM EST) Glucometer, POC 131 65 - 199 mg/dL 06/19/2024 8:[address] [facility] Comment:Supplemental ranges: <140 mg/dL before meals <180 mg/dL all other times of the day. Blood CAPILLARY BLOOD / Unknown 06/19/2024 8:15 PM EST 06/19/2024 8:15 PM EST Bobby Loja MD POINT OF CARE TEST O NIKA Performing Organization Address [facility] Co de Phone Number [facility] [place] [address] * POC, GLUCOSE (06/19/2024 6:01 PM EST) [...] CARE TEST O NIKA Performing Organization Address City/[facility] Co de Phone Number [facility] [place] [address] * POC, GLUCOSE (06/19/2024 4:51 PM EST) Glucometer, POC 155 65 - 199 mg/dL 06/19/2024 4:[address] [facility] Comment:Supplemental ranges: <140 mg/dL before meals <180 mg/dL all other times of the day. Blood CAPILLARY BLOOD / Unknown 06/19/2024 4:51 PM EST 06/19/2024 4:51 PM EST Bobby Loja MD POINT OF CARE TEST O NIKA Performing Organization Address City/[facility]/ZIP Co de Phone Number [facility] [place] [address] * POC, GLUCOSE (06/19/2024 12:37 PM EST) Glucometer, POC 136 65 - 199 mg/dL 06/19/2024 12:[address] [facility] Comment:Supplemental ranges: <140 mg/dL before meals <180 mg/dL all other times of the day. Blood CAPILLARY BLOOD / Unknown 06/19/2024 12:37 PM EST 06/19/2024 12:37 PM EST Bobby Loja MD POINT OF CARE TEST O NIKA Performing Organization Address [facility] Co de Phone Number [facility] [place] [address] * POC, GLUCOSE (06/19/2024 11:20 AM EST) Glucometer, POC 185 65 - 199 mg/dL 06/19/2024 11:[address] [facility] Comment:Supplemental ranges: <140 mg/dL before meals <180 mg/dL all other times of the day. Blood CAPILLARY BLOOD / Unknown 06/19/2024 11:20 AM EST 06/19/2024 11:21 AM EST Bobby Loja MD POINT OF CARE TEST O RALPHERAPIETER Performing Organization Address City/[facility]/ZIP Co de Phone Number [facility] [place] [address] * POC, GLUCOSE (06/19/2024 7:21 AM EST) Glucometer, POC 125 65 - 199 mg/dL 06/19/2024 7:[address] [facility] Comment:Supplemental ranges: <140 mg/dL before meals <180 mg/dL all other times of the day. Blood CAPILLARY BLOOD / Unknown 06/19/2024 7:21 AM EST 06/19/2024 7:22 AM EST Bobby Loja MD POINT OF CARE TEST O NIKA Performing Organization Address City/[facility]/ZIP Co de Phone Number [facility] [place] [address] * POC, GLUCOSE (06/19/2024 4:52 AM EST) Glucometer, POC 125 65 - 199 mg/dL 06/19/2024 4:[address] [facility] Comment:Supplemental ranges: <140 mg/dL before meals <180 mg/dL all other times of the day. Blood CAPILLARY BLOOD / Unknown 06/19/2024 4:52 AM EST 06/19/2024 4:52 AM EST Bobby Loja MD POINT OF CARE TEST O NIKA Performing Organization Address City/[facility]/ZIP Co de Phone Number [facility] [place] [address] * POC, GLUCOSE (06/19/2024 4:13 AM EST) Glucometer, POC 67 65 - 199 mg/dL 06/19/2024 4:[address] [facility] Comment:Supplemental ranges: <140 mg/dL before meals <180 mg/dL all other times of the day. Blood CAPILLARY BLOOD / Unknown 06/19/2024 4:13 AM EST 06/19/2024 4:13 AM EST Bobby Loja MD POINT OF CARE TEST O NIKA [facility] [place] [address] * (ABNORMAL) POC, GLUCOSE (06/19/2024 3:48 AM EST) Glucometer, POC 51(LLL) 65 - 199 mg/dL 06/19/2024 3:[address] [facility] Comment:Supplemental ranges: <140 mg/dL before meals <180 mg/dL all other times of the day. Blood CAPILLARY BLOOD / Unknown 06/19/2024 3:48 AM EST 06/19/2024 3:48 AM EST Bobby Loja MD POINT OF CARE TEST O RDERAPIETER [facility] [place] [address] * (ABNORMAL) Basic Metabolic Panel (06/19/2024 3:44 AM EST) Glucose 53(LLL) 65 - 199 mg/dL 06/19/2024 4:[address] [facility] Comment:Glucose Concentratio n >=200 mg/dL plus symptoms is consistent with Diabetes Mellitus. Blood Urea Nitrogen 42(H) 10 - 20 mg/dL 06/19/2024 4:[address] [facility] Creatinine 1.29 0.80 - 1.50 mg/dL 06/19/2024 4:48 [address] [facility] Sodium 138 135 - 145 mMol/L 06/19/2024 4:48 AM [facility] Potassium 3.6 3.5 - 5.0 mMol/L 06/19/2024 4:48 [address] [facility] Chloride 100 98 - 107 mMol/L 06/19/2024 4:48 AM [facility] Carbon Dioxide 29 22 - 31 mMol/L 06/19/2024 4:48 AM [facility] Anion Gap 9 5 - 15 mMol/L 06/19/2024 4:48 AM [facility] Calcium 8.8 8.5 - 10.5 mg/dL 06/19/2024 4:[address] [facility] Est Glomerular Filtration Rate - Male 61 mL/min/1. 73 m?? 06/19/2024 4:[address] [facility] Comment: [...] APRN CHEMISTRY ORDERABL ES Performing Organization Address City/[facility]/ZIP Co de Phone Number [facility] [place] [address] * POC, GLUCOSE (06/19/2024 12:23 AM EST) Glucometer, POC 82 65 - 199 mg/dL 06/19/2024 12:[address] [facility] Comment:Supplemental ranges: <140 mg/dL before meals <180 mg/dL all other times of the day. Blood CAPILLARY BLOOD / Unknown 06/19/2024 12:23 AM EST 06/19/2024 12:23 AM EST Bobby Loja MD POINT OF CARE TEST O RDERABLES [facility] [place] [address] * POC, GLUCOSE (06/18/2024 11:08 PM EST) Glucometer, POC 73 65 - 199 mg/dL 06/18/2024 11:[address] [facility] Comment:Supplemental ranges: <140 mg/dL before meals <180 mg/dL all other times of the day. Blood CAPILLARY BLOOD / Unknown 06/18/2024 11:08 PM EST 06/18/2024 11:08 PM EST Bobby Loja MD POINT OF CARE TEST O NIKA Performing Organization Address City/[facility]/ZIP Co de Phone Number [facility] [place] [address] * POC, GLUCOSE (06/18/2024 7:32 PM EST) Glucometer, POC 167 65 - 199 mg/dL 06/18/2024 7:[address] [facility] Comment:Supplemental ranges: <140 mg/dL before meals <180 mg/dL all other times of the day. Blood CAPILLARY BLOOD / Unknown 06/18/2024 7:32 PM EST 06/18/2024 7:32 PM EST Bobby Loja MD POINT OF CARE TEST O NIKA Performing Organization Address [facility] Co de Phone Number [facility] [place] [address] * POC, GLUCOSE (06/18/2024 6:08 PM EST) Glucometer, POC 140 65 - 199 mg/dL 06/18/2024 6:[address] [facility] Comment:Supplemental ranges: <140 mg/dL before meals <180 mg/dL all other times of the day. Blood CAPILLARY BLOOD / Unknown 06/18/2024 6:08 PM EST 06/18/2024 6:09 PM EST Bobby Loja MD POINT OF CARE TEST O NIKA Performing Organization Address City/[facility]/ZIP Co de Phone Number [facility] [place] [address] * POC, GLUCOSE (06/18/2024 4:17 PM EST) Glucometer, POC 144 65 - 199 mg/dL 06/18/2024 4:[address] [facility] Comment:Supplemental ranges: <140 mg/dL before meals <180 mg/dL all other times of the day. Blood CAPILLARY BLOOD / Unknown 06/18/2024 4:17 PM EST 06/18/2024 4:17 PM EST Bobby Loja MD POINT OF CARE TEST O NIKA Performing Organization Address [facility]/ZIP Co de Phone Number [facility] [place] [address] * POC, GLUCOSE (06/18/2024 12:09 PM EST) Glucometer, POC 180 65 - 199 mg/dL 06/18/2024 12:[address] [facility] Comment:Supplemental ranges: <140 mg/dL before meals <180 mg/dL all other times of the day. Blood CAPILLARY BLOOD / Unknown 06/18/2024 12:09 PM EST 06/18/2024 12:09 PM EST Bobby Loja MD POINT OF CARE TEST O NIKA Performing Organization Address [facility]/ZIP Co de Phone Number [facility] [place] [address] * POC, GLUCOSE (06/18/2024 7:49 AM EST) Glucometer, POC 125 65 - 199 mg/dL 06/18/2024 7:[address] [facility] Comment:Supplemental ranges: <140 mg/dL before meals <180 mg/dL all other times of the day. Blood CAPILLARY BLOOD / Unknown 06/18/2024 7:49 AM EST 06/18/2024 7:50 AM EST Bobby Loja MD POINT OF CARE TEST O NIKA [facility] [place] [address] * (ABNORMAL) Basic Metabolic Panel (06/18/2024 4:19 AM EST) Glucose 103 65 - 199 mg/dL 06/18/2024 5:[address] [facility] Comment:Glucose Concentratio n >=200 mg/dL plus symptoms is consistent with Diabetes Mellitus. Blood Urea Nitrogen 43(H) 10 - 20 mg/dL 06/18/2024 5:03 [address] [facility] Creatinine 1.45 0.80 - 1.50 mg/dL 06/18/2024 5:03 AM [facility] Sodium 131(L) 135 - 145 mMol/L 06/18/2024 5:03 AM [facility] Potassium 4.2 3.5 - 5.0 mMol/L 06/18/2024 5:03 AM [facility] Chloride 97(L) 98 - 107 mMol/L 06/18/2024 5:03 AM [facility] Carbon Dioxide 25 22 - 31 mMol/L 06/18/2024 5:03 AM [facility] Anion Gap 9 5 - 15 mMol/L 06/18/2024 5:03 AM [facility] Calcium 8.5 8.5 - 10.5 mg/dL 06/18/2024 5:03 [address] [facility] Est Glomerular Filtration Rate - Male 53 mL/min/1. 73 m?? 06/18/2024 5:03 [address] [facility] Comment: [...] APRN CHEMISTRY ORDERABL ES Performing Organization Address City/[facility]/ZIP Co de Phone Number [facility] [place] [address] * POC, GLUCOSE (06/18/2024 3:50 AM EST) Glucometer, POC 99 65 - 199 mg/dL 06/18/2024 3:[address] [facility] Comment:Supplemental ranges: <140 mg/dL before meals <180 mg/dL all other times of the day. Blood CAPILLARY BLOOD / Unknown 06/18/2024 3:50 AM EST 06/18/2024 3:51 AM EST Bobby Loja MD POINT OF CARE TEST O NIKA Performing Organization Address [facility] Co de Phone Number [facility] [place] [address] * POC, GLUCOSE (06/17/2024 11:10 PM EST) Glucometer, POC 92 65 - 199 mg/dL 06/17/2024 11:[address] [facility] Comment:Supplemental ranges: <140 mg/dL before meals <180 mg/dL all other times of the day. Blood CAPILLARY BLOOD / Unknown 06/17/2024 11:10 PM EST 06/17/2024 11:10 PM EST Bobby Loja MD POINT OF CARE TEST O NIKA Performing Organization Address City/[facility]/ZIP Co de Phone Number [facility] [place] [address] * POC, GLUCOSE (06/17/2024 7:54 PM EST) Glucometer, POC 126 65 - 199 mg/dL 06/17/2024 7:[address] [facility] Comment:Supplemental ranges: <140 mg/dL before meals <180 mg/dL all other times of the day. Blood CAPILLARY BLOOD / Unknown 06/17/2024 7:54 PM EST 06/17/2024 7:54 PM EST Bobby Loja MD POINT OF CARE TEST O NIKA Performing Organization Address [facility] Co de Phone Number [facility] [place] [address] * POC, GLUCOSE (06/17/2024 4:07 PM EST) Glucometer, POC 141 65 - 199 mg/dL 06/17/2024 4:[address] [facility] Comment:Supplemental ranges: <140 mg/dL before meals <180 mg/dL all other times of the day. Blood CAPILLARY BLOOD / Unknown 06/17/2024 4:07 PM EST 06/17/2024 4:12 PM EST Bobby Loja MD POINT OF CARE TEST O NIKA Performing Organization Address [facility] de Phone Number [facility] [place] [address] * XR Chest PA & Lateral (Generic) (06/17/2024 1:46 PM EST) WORKSTATION ID [id number] RAD Anatomical Region Laterality Modality Chest N/A [...] who have questions please contact the health patient care associate that requested your imaging first. ? Electronically signed by: Josselyn Spence MD, [facility] ([phone]), at 06/17/2024 4:49 PM Narrative 06/17/2024 4:49 [...] patients who have questions please contactthe health patient care associate that requested your imaging first. Electronically signed by: Josselyn Spence MD, [facility]([phone]), at 06/17/2024 4:49 PM Keila Hanley APRN [...] CARE TEST O NIKA Performing Organization Address [facility] Co de Phone Number [facility] [place] [address] * POC, GLUCOSE (06/17/2024 7:49 AM EST) Glucometer, POC 141 65 - 199 mg/dL 06/17/2024 7:[address] [facility] Comment:Supplemental ranges: <140 mg/dL before meals <180 mg/dL all other times of the day. Blood CAPILLARY BLOOD / Unknown 06/17/2024 7:49 AM EST 06/17/2024 7:55 AM EST Bobby Loja MD POINT OF CARE TEST O NIKA Performing Organization Address [facility] Co de Phone Number [facility] [place] [address] * POC, GLUCOSE (06/17/2024 4:16 AM EST) Glucometer, POC 139 65 - 199 mg/dL 06/17/2024 4:[address] [facility] Comment:Supplemental ranges: <140 mg/dL before meals <180 mg/dL all other times of the day. Blood CAPILLARY BLOOD / Unknown 06/17/2024 4:16 AM EST 06/17/2024 4:17 AM EST Bobby Loja MD POINT OF CARE TEST O RDERABLES [facility] [place] [address] * Lactate, Whole Blood (06/17/2024 2:39 AM EST) [facility] Lactate, Whole Blood 1.3 0.5 - 2.2 mmol/L 06/17/2024 2:[address] [facility] Blood VENOUS BLOOD SPECIMEN / Unknown Venipuncture / Unknown 06/17/2024 2:39 AM EST 06/17/2024 2:43 AM EST Bobby Loja MD CHEMISTRY ORDERABLES [facility] [place] [address] * (ABNORMAL) Hemogram (06/17/2024 2:39 AM EST) [facility] White Blood Cell 13.53(H) 4.00 - 9.50 x10(3)/mc L 06/17/2024 2:53 AM [facility] Red Blood Cell 3.55(L) 4.58 - 5.54 x10(6)/mc L 06/17/2024 2:53 AM [facility] Hemoglobin 10.8(L) 13.7 - 16.5 g/dL 06/17/2024 2:53 AM [facility] Hematocrit 33.0(L) 40.5 - 48.5 % 06/17/2024 2:53 AM [facility] Mean Cell Volume 93.0 82.9 - 93.1 fL 06/17/2024 2:53 AM [facility] Mean Cell Hemoglobin 30.4 27.5 - 32.1 pg 06/17/2024 2:53 AM [facility] Mean Cell Hemoglobin Concentration 32.7 32.0 - 35.7 g/dL 06/17/2024 2:53 AM [facility] Platelet 101(L) 145 - 357 x10(3)/mc L 06/17/2024 2:53 AM [facility] Mean Platelet Volume 10.4 7.6 - 12.9 fL 06/17/2024 2:53 AM [facility] RDW Standard Deviation 48.4(H) 36.0 - 45.0 fL 06/17/2024 2:53 AM [facility] RDW coefficient of variation 14.1(H) 11.4 - 13.8 % 06/17/2024 2:53 AM [facility] NRBC% auto 0.0 % 06/17/2024 2:53 AM [facility] NRBC Absolute <0.01 <0.01 x10(3)/mc L 06/17/2024 2:53 AM [facility] Blood VENOUS BLOOD SPECIMEN / Unknown Venipuncture / Unknown 06/17/2024 2:39 AM EST 06/17/2024 2:43 AM EST Bobby Loja MD HEMATOLOGY ORDERABLE S [facility] [place] [address] * (ABNORMAL) Basic Metabolic Panel (06/17/2024 2:39 AM EST) Glucose 149 65 - 199 mg/dL 06/17/2024 3:14 AM [facility] Comment:Glucose Concentratio n >=200 mg/dL plus symptoms is consistent with Diabetes Mellitus. Blood Urea Nitrogen 42(H) 10 - 20 mg/dL 06/17/2024 3:14 AM [facility] Creatinine 1.52(H) 0.80 - 1.50 mg/dL 06/17/2024 3:14 AM [facility] Sodium 133(L) 135 - 145 mMol/L 06/17/2024 3:14 AM [facility] Potassium 4.5 3.5 - 5.0 mMol/L 06/17/2024 3:14 AM [facility] Chloride 101 98 - 107 mMol/L 06/17/2024 3:[address] [facility] Carbon Dioxide 23 22 - 31 mMol/L 06/17/2024 3:14 AM [facility] Anion Gap 9 5 - 15 mMol/L 06/17/2024 3:14 AM [facility] Calcium 8.8 8.5 - 10.5 mg/dL 06/17/2024 3:[address] [facility] Est [...] Loja MD CHEMISTRY ORDERABLES Performing Organization Address City/State/[facility] Co de Phone Number [facility] [place] [address] * (ABNORMAL) POC, GLUCOSE (06/17/2024 12:13 AM EST) Glucometer, POC 211(H) 65 - 199 mg/dL 06/17/2024 12:[address] [facility] Comment:Supplemental ranges: <140 mg/dL before meals <180 mg/dL all other times of the day. Blood CAPILLARY BLOOD / Unknown 06/17/2024 12:13 AM EST 06/17/2024 12:14 AM EST Bobby Loja MD POINT OF CARE TEST O RDERABLES Performing Organization Address City/[facility] Co de Phone Number [facility] [place] [address] * (ABNORMAL) POC, GLUCOSE (06/16/2024 7:22 PM EST) Glucometer, POC 229(H) 65 - 199 mg/dL 06/16/2024 7:[address] [facility] Comment:Supplemental ranges: <140 mg/dL before meals <180 mg/dL all other times of the day. Blood CAPILLARY BLOOD / Unknown 06/16/2024 7:22 PM EST 06/16/2024 7:22 PM EST Bobby Loja MD POINT OF CARE TEST O NIKA Performing Organization Address [facility] Co de Phone Number [facility] [place] [address] * (ABNORMAL) POC, GLUCOSE (06/16/2024 6:14 PM EST) Glucometer, POC 220(H) 65 - 199 mg/dL 06/16/2024 6:[address] [facility] Comment:Supplemental ranges: <140 mg/dL before meals <180 mg/dL all other times of the day. Blood CAPILLARY BLOOD / Unknown 06/16/2024 6:14 PM EST 06/16/2024 6:14 PM EST Bobby Loja MD POINT OF CARE TEST O NIKA Performing Organization Address City/[facility] Co de Phone Number [facility] [place] [address] * Lactate, Whole Blood (06/16/2024 6:14 PM EST) Lactate, Whole Blood 1.8 0.5 - 2.2 mmol/L 06/16/2024 6:[address] [facility] Blood VENOUS BLOOD SPECIMEN / Unknown Venipuncture / Unknown 06/16/2024 6:14 PM EST 06/16/2024 6:25 PM EST Bobby Loja MD CHEMISTRY ORDERABLES Performing Organization Address [facility] Co de Phone Number [facility] [place] [address] * (ABNORMAL) POC, GLUCOSE (06/16/2024 4:14 PM EST) Glucometer, POC 240(H) 65 - 199 mg/dL 06/16/2024 4:[address] [facility] Comment:Supplemental ranges: <140 mg/dL before meals <180 mg/dL all other times of the day. Blood CAPILLARY BLOOD / Unknown 06/16/2024 4:14 PM EST 06/16/2024 4:14 PM EST Bobby Loja MD POINT OF CARE TEST O RDERABLES Performing Organization Address [facility] Co de Phone Number [facility] [place] [address] * POC, GLUCOSE (06/16/2024 11:49 AM EST) Glucometer, POC 199 65 - 199 mg/dL 06/16/2024 11:[address] [facility] Comment:Supplemental ranges: <140 mg/dL before meals <180 mg/dL all other times of the day. Blood CAPILLARY BLOOD / Unknown 06/16/2024 11:49 AM EST 06/16/2024 11:49 AM EST Bobby Loja MD POINT OF CARE TEST O NIKA Performing Organization Address [facility] Co de Phone Number [facility] [place] [address] * (ABNORMAL) Hemogram (06/16/2024 11:44 AM EST) White Blood Cell 17.91(H) 4.00 - 9.50 x10(3)/mc L 06/16/2024 12:25 [address] [facility] Red Blood Cell 3.47(L) 4.58 - 5.54 x10(6)/mc L 06/16/2024 12:25 PM [facility] Hemoglobin 10.5(L) 13.7 - 16.5 g/dL 06/16/2024 12:25 PM [facility] Hematocrit 33.1(L) 40.5 - 48.5 % 06/16/2024 12:25 PM [facility] Mean Cell Volume 95.4(H) 82.9 - 93.1 fL 06/16/2024 12:25 PM [facility] Mean Cell Hemoglobin 30.3 27.5 - 32.1 pg 06/16/2024 12:25 PM [facility] Mean Cell Hemoglobin Concentration 31.7(L) 32.0 - 35.7 g/dL 06/16/2024 12:25 PM [facility] Platelet 101(L) 145 - 357 x10(3)/mc L 06/16/2024 12:25 PM [facility] Mean Platelet Volume 10.6 7.6 - 12.9 fL 06/16/2024 12:25 PM [facility] RDW Standard Deviation 49.5(H) 36.0 - 45.0 fL 06/16/2024 12:25 PM [facility] RDW coefficient of variation 14.2(H) 11.4 - 13.8 % 06/16/2024 12:25 PM [facility] NRBC% auto 0.0 % 06/16/2024 12:25 PM [facility] NRBC Absolute <0.01 <0.01 x10(3)/mc L 06/16/2024 12:25 PM [facility] Blood VENOUS BLOOD SPECIMEN / Unknown Venipuncture / Unknown 06/16/2024 11:44 AM EST 06/16/2024 12:03 PM EST Bobby Loja MD HEMATOLOGY ORDERABLE S Performing Organization Address [facility]/ZIP Co de Phone Number [facility] [place] [address] * Lactate, Whole Blood (06/16/2024 9:02 AM EST) Lactate, Whole Blood 1.8 0.5 - 2.2 mmol/L 06/16/2024 9:[address] [facility] Blood VENOUS BLOOD SPECIMEN / Unknown Venipuncture / Unknown 06/16/2024 9:02 AM EST 06/16/2024 9:17 AM EST Bobby Loja MD CHEMISTRY ORDERABLES Performing Organization Address [facility] Co de Phone Number [facility] [place] [address] * POC, GLUCOSE (06/16/2024 7:44 AM EST) [...] CARE TEST O RDERABLES Performing Organization Address [facility] Co de Phone Number [facility] [place] [address] * POC, GLUCOSE (06/16/2024 4:01 AM EST) [...] TEST O RDERABLES [facility] [place] [address] * (ABNORMAL) Basic Metabolic Panel (06/16/2024 2:23 AM EST) Glucose 177 65 - 199 mg/dL 06/16/2024 3:13 [address] [facility] Comment:Glucose Concentratio n >=200 mg/dL plus symptoms is consistent with Diabetes Mellitus. Blood Urea Nitrogen 37(H) 10 - 20 mg/dL 06/16/2024 3:13 AM [facility] Creatinine 2.10(H) 0.80 - 1.50 mg/dL 06/16/2024 3:13 AM [facility] Sodium 132(L) 135 - 145 mMol/L 06/16/2024 3:13 AM [facility] Potassium 4.5 3.5 - 5.0 mMol/L 06/16/2024 3:13 AM [facility] Chloride 99 98 - 107 mMol/L 06/16/2024 3:13 AM [facility] Carbon Dioxide 22 22 - 31 mMol/L 06/16/2024 3:13 AM [facility] Anion Gap 11 5 - 15 mMol/L 06/16/2024 3:13 AM [facility] Calcium 9.0 8.5 - 10.5 mg/dL 06/16/2024 3:13 [address] [facility] Est Glomerular Filtration Rate - Male 34 mL/min/1. 73 m?? 06/16/2024 3:13 AM [facility] Comment: [...] Loja MD CHEMISTRY ORDERABLES Performing Organization Address [facility]/ZIP Co de Phone Number [facility] [place] [address] * POC, GLUCOSE (06/16/2024 2:21 AM EST) [...] CARE TEST O RDERABLES Performing Organization Address [facility] Co de Phone Number [facility] [place] [address] * (ABNORMAL) POC, GLUCOSE (06/16/2024 12:09 AM [...] CARE TEST O RDERABLES Performing Organization Address City/[facility]/ZIP Co de Phone Number [facility] [place] [address] * (ABNORMAL) POC, GLUCOSE (06/15/2024 10:07 PM EST) Glucometer, POC 320(H) 65 - 199 mg/dL 06/15/2024 10:[address] [facility] Comment:Supplemental ranges: <140 mg/dL before meals <180 mg/dL all other times of the day. Blood CAPILLARY BLOOD / Unknown 06/15/2024 10:07 PM EST 06/15/2024 10:07 PM EST Bobby Loja MD POINT OF CARE TEST O NIKA Performing Organization Address [facility] Co de Phone Number [facility] [place] [address] * (ABNORMAL) POC, GLUCOSE (06/15/2024 7:56 PM EST) Glucometer, POC 304(H) 65 - 199 mg/dL 06/15/2024 7:[address] [facility] Comment:Supplemental ranges: <140 mg/dL before meals <180 mg/dL all other times of the day. Blood CAPILLARY BLOOD / Unknown 06/15/2024 7:56 PM EST 06/15/2024 7:56 PM EST Bobby Loja MD POINT OF CARE TEST O NIKA Performing Organization Address City/[facility] Co de Phone Number [facility] [place] [address] * (ABNORMAL) POC, GLUCOSE (06/15/2024 7:52 PM EST) Glucometer, POC 288(H) 65 - 199 mg/dL 06/15/2024 7:[address] [facility] Comment:Supplemental ranges: <140 mg/dL before meals <180 mg/dL all other times of the day. Blood CAPILLARY BLOOD / Unknown 06/15/2024 7:52 PM EST 06/15/2024 7:52 PM EST Bobby Loja MD POINT OF CARE TEST O NIKA Performing Organization Address City/[facility] Co de Phone Number [facility] [place] [address] * POC, GLUCOSE (06/15/2024 4:21 PM EST) Glucometer, POC 192 65 - 199 mg/dL 06/15/2024 4:[address] [facility] Comment:Supplemental ranges: <140 mg/dL before meals <180 mg/dL all other times of the day. Blood CAPILLARY BLOOD / Unknown 06/15/2024 4:21 PM EST 06/15/2024 4:21 PM EST Bobby Loja MD POINT OF CARE TEST O NIKA Performing Organization Address [facility] Co de Phone Number [facility] [place] [address] * POC, GLUCOSE (06/15/2024 3:27 PM EST) Glucometer, POC 155 65 - 199 mg/dL 06/15/2024 3:[address] [facility] Comment:Supplemental ranges: <140 mg/dL before meals <180 mg/dL all other times of the day. Blood CAPILLARY BLOOD / Unknown 06/15/2024 3:27 PM EST 06/15/2024 3:27 PM EST Bobby Loja MD POINT OF CARE TEST O NIKA Performing Organization Address City/[facility]/ZIP Co de Phone Number [facility] [place] [address] * POC, GLUCOSE (06/15/2024 2:23 PM EST) Glucometer, POC 160 65 - 199 mg/dL 06/15/2024 2:[address] [facility] Comment:Supplemental ranges: <140 mg/dL before meals <180 mg/dL all other times of the day. Blood CAPILLARY BLOOD / Unknown 06/15/2024 2:23 PM EST 06/15/2024 2:23 PM EST Bobby Loja MD POINT OF CARE TEST O RDBECKIE Performing Organization Address City/[facility] Co de Phone Number [facility] [place] [address] * POC, GLUCOSE (06/15/2024 1:26 PM EST) Glucometer, POC 167 65 - 199 mg/dL 06/15/2024 1:[address] [facility] Comment:Supplemental ranges: <140 mg/dL before meals <180 mg/dL all other times of the day. Blood CAPILLARY BLOOD / Unknown 06/15/2024 1:26 PM EST 06/15/2024 1:26 PM EST Bobby Loja MD POINT OF CARE TEST O NIKA Performing Organization Address [facility] Co de Phone Number [facility] [place] [address] * (ABNORMAL) POC, GLUCOSE (06/15/2024 12:55 PM EST) Glucometer, POC 210(H) 65 - 199 mg/dL 06/15/2024 12:[address] [facility] Comment:Supplemental ranges: <140 mg/dL before meals <180 mg/dL all other times of the day. Blood CAPILLARY BLOOD / Unknown 06/15/2024 12:55 PM EST 06/15/2024 12:55 PM EST Bobby Loja MD POINT OF CARE TEST O NIKA Performing Organization Address City/[facility] Co de Phone Number [facility] [place] [address] * (ABNORMAL) POC, GLUCOSE (06/15/2024 11:29 AM EST) Glucometer, POC 220(H) 65 - 199 mg/dL 06/15/2024 11:[address] [facility] Comment:Supplemental ranges: <140 mg/dL before meals <180 mg/dL all other times of the day. Blood CAPILLARY BLOOD / Unknown 06/15/2024 11:29 AM EST 06/15/2024 11:29 AM EST Bobby Loja MD POINT OF CARE TEST O RDERABLES [facility] [place] [address] * (ABNORMAL) Basic Metabolic Panel (06/15/2024 11:23 AM EST) Glucose 215(H) 65 - 199 mg/dL 06/15/2024 12:[address] [facility] Comment:Glucose Concentratio n >=200 mg/dL plus symptoms is consistent with Diabetes Mellitus. Blood Urea Nitrogen 24(H) 10 - 20 mg/dL 06/15/2024 12:08 [address] [facility] Creatinine 1.54(H) 0.80 - 1.50 mg/dL 06/15/2024 12:08 [address] [facility] Sodium 135 135 - 145 mMol/L 06/15/2024 12:08 PM [facility] Potassium 4.5 3.5 - 5.0 mMol/L 06/15/2024 12:08 PM [facility] Chloride 105 98 - 107 mMol/L 06/15/2024 12:08 PM [facility] Carbon Dioxide 19(L) 22 - 31 mMol/L 06/15/2024 12:08 PM [facility] Anion Gap 11 5 - 15 mMol/L 06/15/2024 12:08 PM [facility] Calcium 8.3(L) 8.5 - 10.5 mg/dL 06/15/2024 12:08 PM [facility] Est Glomerular Filtration Rate - Male 49 mL/min/1. 73 m?? 06/15/2024 12:08 PM [facility] Comment: This [...] Loja MD CHEMISTRY ORDERABLES Performing Organization Address [facility] Co de Phone Number [facility] [place] [address] * POC, GLUCOSE (06/15/2024 10:29 AM EST) [...] CARE TEST O RDERABLES Performing Organization Address [facility] Co de Phone Number [facility] [place] [address] * POC, GLUCOSE (06/15/2024 9:45 AM EST) Glucometer, POC 178 65 - 199 mg/dL 06/15/2024 9:[address] [facility] Comment:Supplemental ranges: <140 mg/dL before meals <180 mg/dL all other times of the day. Blood CAPILLARY BLOOD / Unknown 06/15/2024 9:45 AM EST 06/15/2024 9:45 AM EST Bobby Loja MD POINT OF CARE TEST O NIKA [facility] [place] [address] * (ABNORMAL) Cooximetry, POC (06/15/2024 9:31 AM EST) pO2, Coox 38 mmHg 06/15/2024 9:34 AM [facility] Hemoglobin, Coox 12.9(L) 13.7 - 16.5 g/dL 06/15/2024 9:34 AM [facility] Oxyhemoglobin, Coox 72.1 % 06/15/2024 9:34 AM [facility] Carboxyhemoglo bin, Coox 0.9 % 06/15/2024 9:34 AM [facility] Comment: Nonsmokers: 0.5-1.5% COHB ?? Smokers: Variable ??but usually less than 10% ?? Toxic: 20-30% COHB ?? Lethal: Greater than 60% COHB Methemoglobin, Coox 0.3 <=1.5 % 06/15/2024 9:34 AM [facility] Blood (Mixed Venous) 06/15/2024 9:31 AM EST 06/15/2024 9:34 AM EST Bobby Loja MD POINT OF CARE TEST O NIKA [facility] [place] [address] * Cooximetry, POC (06/15/2024 9:22 AM EST) pO2, Coox 30 mmHg 06/15/2024 9:25 AM [facility] Hemoglobin, Coox 06/15/2024 9:25 AM [facility] Comment:QUES Oxyhemoglobin, Coox 06/15/2024 9:25 AM [facility] Comment:QUES Carboxyhemoglo bin, Coox 06/15/2024 9:25 AM [facility] Comment:QUES Methemoglobin, Coox 06/15/2024 9:25 AM [facility] Comment:QUES Blood (Mixed Venous) 06/15/2024 9:22 AM EST 06/15/2024 9:25 AM EST Bobby Loja MD POINT OF CARE TEST O NIKA [facility] [place] [address] * (ABNORMAL) Blood Gas, Arterial POC (06/15/2024 9:19 AM EST) pH, Arterial 7.31(L) 7.35 - 7.45 06/15/2024 9:21 AM [facility] PCO2, Arterial 36 35 - 45 mmHg 06/15/2024 9:21 AM [facility] PO2, Arterial 94 85 - 104 mmHg 06/15/2024 9:21 AM [facility] Bicarbonate, Arterial 18.0(L) 20.0 - 26.0 mmol/L 06/15/2024 9:21 AM [facility] Base Excess, Arterial -8.2(L) -3.0 - 3.0 mmol/L 06/15/2024 9:21 AM [facility] Hemoglobin, Arterial 12.7(L) 13.7 - 16.5 g/dL 06/15/2024 9:21 AM [facility] Oxyhemoglobin, Arterial 96.0 94.0 - 97.0 % 06/15/2024 9:21 AM [facility] Carboxyhemoglobin , Arterial 0.5 % 06/15/2024 9:21 AM [facility] Comment: Nonsmokers: 0.5-1.5% COHB ?? Smokers: Variable ??but usually less than 10% ?? Toxic: 20-30% COHB ?? Lethal: Greater than 60% COHB Methemoglobin, Arterial 0.3 <=1.5 % 06/15/2024 9:21 AM [facility] Sodium, Arterial 136 135 - 145 mmol/L 06/15/2024 9:21 AM [facility] Potassium, Arterial 4.0 3.5 - 5.0 mmol/L 06/15/2024 9:21 AM [facility] Chloride, Arterial 106 98 - 107 mmol/L 06/15/2024 9:21 AM [facility] Lactate, Arterial 1.7 0.5 - 2.2 mmol/L 06/15/2024 9:21 AM [facility] Flow Rate 2.0 L/min 06/15/2024 9:21 AM [facility] IONIZED CALCIUM, ARTERIAL 1.14(L) 1.15 - 1.33 mmol/L 06/15/2024 9:21 AM [facility] Glucose, Arterial 193 65 - 199 mg/dL 06/15/2024 9:21 AM [facility] Comment:Glucose Concentratio n >=200 mg/dL plus symptoms is consistent with Diabetes Mellitus. Blood ARTERIAL BLOOD / Unknown 06/15/2024 9:19 AM EST 06/15/2024 9:20 AM EST Bobby Loaj MD POINT OF CARE TEST O RDERABLES [facility] [place] [address] * (ABNORMAL) POC, GLUCOSE (06/15/2024 8:37 AM EST) Glucometer, POC 204(H) 65 - 199 mg/dL 06/15/2024 8:37 AM [facility] Comment:Supplemental ranges: <140 mg/dL before meals <180 mg/dL all other times of the day. Blood CAPILLARY BLOOD / Unknown 06/15/2024 8:37 AM EST 06/15/2024 8:37 AM EST Bobby Loja MD POINT OF CARE TEST O RDERAPIETER Performing Organization Address [facility] de Phone Number [facility] [place] [address] * POC, GLUCOSE (06/15/2024 7:37 AM EST) Glucometer, POC 199 65 - 199 mg/dL 06/15/2024 7:[address] [facility] Comment:Supplemental ranges: <140 mg/dL before meals <180 mg/dL all other times of the day. Blood CAPILLARY BLOOD / Unknown 06/15/2024 7:37 AM EST 06/15/2024 7:38 AM EST Bobby Loja MD POINT OF CARE TEST O NIKA Performing Organization Address [facility] de Phone Number [facility] [place] [address] * (ABNORMAL) POC, GLUCOSE (06/15/2024 7:01 AM EST) Glucometer, POC 203(H) 65 - 199 mg/dL 06/15/2024 7:[address] [facility] Comment:Supplemental ranges: <140 mg/dL before meals <180 mg/dL all other times of the day. Blood CAPILLARY BLOOD / Unknown 06/15/2024 7:01 AM EST 06/15/2024 7:01 AM EST Bobby Loja MD POINT OF CARE TEST O NIKA Performing Organization Address [facility] Co de Phone Number [facility] [place] [address] * XR Chest One View (06/15/2024 6:31 AM EST) WORKSTATION ID [id number] RAD Anatomical Region Laterality Modality Chest N/A [...] who have questions please contact the health patient care associate that requested your imaging first. ? Electronically signed by: Stuart Aponte MD, [facility] ??([phone]), at 06/15/2024 10:38 AM Narrative 06/15/2024 10:38 [...] patients who have questions please contactthe health patient care associate that requested your imaging first. Electronically signed by: Stuart Aponte MD, [facility]([phone]), at 06/15/2024 10:38 AM Authorizing Provider Result [...] CARE TEST O RDERAPIETER Performing Organization Address City/[facility]/ZIP Co de Phone Number [facility] [place] [address] * POC, GLUCOSE (06/15/2024 5:06 AM EST) [...] TEST O NIKA [facility] [place] [address] * POC, GLUCOSE (06/15/2024 4:05 AM EST) Glucometer, POC 160 65 - 199 mg/dL 06/15/2024 4:[address] [facility] Comment:Supplemental ranges: <140 mg/dL before meals <180 mg/dL all other times of the day. Blood CAPILLARY BLOOD / Unknown 06/15/2024 4:05 AM EST 06/15/2024 4:06 AM EST Bobby Loja MD POINT OF CARE TEST O NIKA Performing Organization Address [facility] Co de Phone Number [facility] [place] [address] * POC, GLUCOSE (06/15/2024 3:07 AM EST) Glucometer, POC 151 65 - 199 mg/dL 06/15/2024 3:[address] [facility] Comment:Supplemental ranges: <140 mg/dL before meals <180 mg/dL all other times of the day. Blood CAPILLARY BLOOD / Unknown 06/15/2024 3:07 AM EST 06/15/2024 3:07 AM EST Narrative Authorizing Provider Result Saranya Loja MD POINT OF CARE TEST Abimael MAHER Performing Organization Address [facility] Co de Phone Number [facility] [place] [address] * (ABNORMAL) Basic Metabolic Panel (06/15/2024 1:48 AM EST) Glucose 140 65 - 199 mg/dL 06/15/2024 2:[address] [facility] Comment:Glucose Concentratio n >=200 mg/dL plus symptoms is consistent with Diabetes Mellitus. Blood Urea Nitrogen 21(H) 10 - 20 mg/dL 06/15/2024 2:38 [address] [facility] Creatinine 1.27 0.80 - 1.50 mg/dL 06/15/2024 2:38 AM [facility] Sodium 140 135 - 145 mMol/L 06/15/2024 2:38 AM [facility] Potassium 4.4 3.5 - 5.0 mMol/L 06/15/2024 2:38 AM [facility] Chloride 108(H) 98 - 107 mMol/L 06/15/2024 2:38 AM [facility] Carbon Dioxide 23 22 - 31 mMol/L 06/15/2024 2:[address] [facility] Anion Gap 9 5 - 15 mMol/L 06/15/2024 2:38 AM [facility] Calcium 8.3(L) 8.5 - 10.5 mg/dL 06/15/2024 2:38 AM [facility] Est Glomerular Filtration Rate - Male 62 mL/min/1. 73 m?? 06/15/2024 2:38 AM [facility] Comment: [...] MD CHEMISTRY ORDERABLES [facility] [place] [address] * (ABNORMAL) CBC (with Diff) (06/15/2024 1:48 AM EST) White Blood Cell 11.71(H) 4.00 - 9.50 x10(3)/mc L 06/15/2024 2:[address] [facility] Red Blood Cell 4.14(L) 4.58 - 5.54 x10(6)/mc L 06/15/2024 2:[address] [facility] Hemoglobin 12.5(L) 13.7 - 16.5 g/dL 06/15/2024 2:13 AM [facility] Hematocrit 38.4(L) 40.5 - 48.5 % 06/15/2024 2:13 AM [facility] Mean Cell Volume 92.8 82.9 - 93.1 fL 06/15/2024 2:13 AM [facility] Mean Cell Hemoglobin 30.2 27.5 - 32.1 pg 06/15/2024 2:13 AM [facility] Mean Cell Hemoglobin Concentration 32.6 32.0 - 35.7 g/dL 06/15/2024 2:13 AM [facility] Platelet 101(L) 145 - 357 x10(3)/mc L 06/15/2024 2:13 AM [facility] Mean Platelet Volume 10.0 7.6 - 12.9 fL 06/15/2024 2:13 AM [facility] RDW Standard Deviation 48.8(H) 36.0 - 45.0 fL 06/15/2024 2:13 AM [facility] RDW coefficient of variation 14.2(H) 11.4 - 13.8 % 06/15/2024 2:13 AM [facility] [facility] NRBC% auto 0.0 % 06/15/2024 2:13 AM [facility] NRBC Absolute <0.01 <0.01 x10(3)/mc L 06/15/2024 2:13 AM [facility] Neutrophil % 79.7 % 06/15/2024 2:13 AM [facility] Neutrophil Absolute (ANC) - Automated 9.34(H) 1.70 - 6.10 x10(3)/mc L 06/15/2024 2:13 AM [facility] Lymph % 8.0 % 06/15/2024 2:13 AM [facility] Lymph Absolute 0.94 0.90 - 3.20 x10(3)/mc L 06/15/2024 2:13 AM [facility] Monocyte % 11.4 % 06/15/2024 2:[address] [facility] Monocyte Absolute 1.33(H) 0.30 - 0.90 x10(3)/mc L 06/15/2024 2:[address] [facility] Eos % 0.2 % 06/15/2024 2:[address] [facility] Eos Absolute <0.04 0.00 - 0.40 x10(3)/mc L 06/15/2024 2:[address] [facility] Basophil % 0.2 % 06/15/2024 2:[address] [facility] Baso Absolute <0.04 0.00 - 0.10 x10(3)/mc L 06/15/2024 2:[address] [facility] Immature Gran % 0.5 % 2:13 AM [facility] Immature Gran Absolute 0.06(H) 0.00 - 0.04 x10(3)/mc L 06/15/2024 2:[address] [facility] Blood VENOUS BLOOD SPECIMEN / Unknown Venipuncture / Unknown 06/15/2024 1:48 AM EST 06/15/2024 1:52 AM EST Bobby Loja MD HEMATOLOGY ORDERABLE S [facility] [place] [address] * (ABNORMAL) Troponin - Single (06/15/2024 1:48 [...] troponin value can be found in the [facility] Test Catalog Troponin - [email or web address] Reference: Fourth [place] Definition of Myocardial Infarction. Journal of the [place] [employer] 2018;72:4562-4476 Blood VENOUS BLOOD SPECIMEN / Unknown Venipuncture / Unknown 06/15/2024 1:48 AM EST 06/15/2024 1:52 AM EST Bobby Loja MD CHEMISTRY ORDERABLES [facility] [place] [address] * (ABNORMAL) Blood Gas, Arterial POC (06/15/2024 1:46 AM EST) pH, Arterial 7.33(L) 7.35 - 7.45 06/15/2024 1:[address] [facility] PCO2, Arterial 40 35 - 45 mmHg 06/15/2024 1:[address] [facility] PO2, Arterial 131(H) 85 - 104 mmHg 06/15/2024 1:[address] [facility] Bicarbonate, Arterial 20.7 20.0 - 26.0 mmol/L 06/15/2024 1:[address] [facility] Base Excess, Arterial -5.2(L) -3.0 - 3.0 mmol/L 06/15/2024 1:[address] [facility] Hemoglobin, Arterial 13.4(L) 13.7 - 16.5 g/dL 06/15/2024 1:47 AM [facility] Oxyhemoglobin, Arterial 97.9(H) 94.0 - 97.0 % 06/15/2024 1:47 AM [facility] Carboxyhemoglobin , Arterial 0.5 % 06/15/2024 1:47 AM [facility] Comment: Nonsmokers: 0.5-1.5% COHB ?? Smokers: Variable ??but usually less than 10% ?? Toxic: 20-30% COHB ?? Lethal: Greater than 60% COHB Methemoglobin, Arterial 0.3 <=1.5 % 06/15/2024 1:47 AM [facility] Sodium, Arterial 139 135 - 145 mmol/L 06/15/2024 1:47 AM [facility] Potassium, Arterial 4.2 3.5 - 5.0 mmol/L 06/15/2024 1:47 AM [facility] Chloride, Arterial 107 98 - 107 mmol/L 06/15/2024 1:47 AM [facility] Lactate, Arterial 1.8 0.5 - 2.2 mmol/L 06/15/2024 1:47 AM [facility] Fraction of Inspired Oxygen 40 % 06/15/2024 1:47 AM [facility] PF Ratio 328 Ratio 06/15/2024 1:47 AM [facility] Comment:PF ratio calculated using the non-temperature corrected pO2 result. IONIZED CALCIUM, ARTERIAL 1.17 1.15 - 1.33 mmol/L 06/15/2024 1:47 AM [facility] Glucose, Arterial 127 65 - 199 mg/dL 06/15/2024 1:47 AM [facility] Comment:Glucose Concentratio n >=200 mg/dL plus symptoms is consistent with Diabetes Mellitus. Blood ARTERIAL BLOOD / Unknown 06/15/2024 1:46 AM EST 06/15/2024 1:47 AM EST Bobby Loja MD POINT OF CARE TEST O RDERABLES [facility] [place] [address] * POC, GLUCOSE (06/15/2024 1:05 AM EST) Glucometer, POC 116 65 - 199 mg/dL 06/15/2024 1:[address] [facility] Comment:Supplemental ranges: <140 mg/dL before meals <180 mg/dL all other times of the day. Blood CAPILLARY BLOOD / Unknown 06/15/2024 1:05 AM EST 06/15/2024 1:05 AM EST Bobby Loja MD POINT OF CARE TEST O RDERABLES Performing Organization Address [facility] Co de Phone Number [facility] [place] [address] * POC, GLUCOSE (06/15/2024 12:16 AM EST) Glucometer, POC 135 65 - 199 mg/dL 06/15/2024 12:[address] [facility] Comment:Supplemental ranges: <140 mg/dL before meals <180 mg/dL all other times of the day. Blood CAPILLARY BLOOD / Unknown 06/15/2024 12:16 AM EST 06/15/2024 12:16 AM EST Bobby Loja MD POINT OF CARE TEST O RDBECKIE Performing Organization Address [facility]/ZIP Co de Phone Number [facility] [place] [address] * Potassium (06/14/2024 11:28 PM EST) Potassium 4.1 3.5 - 5.0 mMol/L 06/14/2024 11:[address] [facility] Blood VENOUS BLOOD SPECIMEN / Unknown Venipuncture / Unknown 06/14/2024 11:28 PM EST 06/14/2024 11:34 PM EST Bobby Loja MD CHEMISTRY ORDERABLES [facility] [place] [address] * POC, GLUCOSE (06/14/2024 10:58 PM EST) Glucometer, POC 126 65 - 199 mg/dL 06/14/2024 10:[address] [facility] Comment:Supplemental ranges: <140 mg/dL before meals <180 mg/dL all other times of the day. Blood CAPILLARY BLOOD / Unknown 06/14/2024 10:58 PM EST 06/14/2024 10:59 PM EST Bobby Loja MD POINT OF CARE TEST O NIKA Performing Organization Address [facility] de Phone Number [facility] [place] [address] * POC, GLUCOSE (06/14/2024 9:55 PM EST) Glucometer, POC 152 65 - 199 mg/dL 06/14/2024 9:[address] [facility] Comment:Supplemental ranges: <140 mg/dL before meals <180 mg/dL all other times of the day. Blood CAPILLARY BLOOD / Unknown 06/14/2024 9:55 PM EST 06/14/2024 9:56 PM EST Bobby Loja MD POINT OF CARE TEST O NIKA Performing Organization Address City/[facility] Co de Phone Number [facility] [place] [address] * POC, GLUCOSE (06/14/2024 8:54 PM EST) Glucometer, POC 151 65 - 199 mg/dL 06/14/2024 8:[address] [facility] Comment:Supplemental ranges: <140 mg/dL before meals <180 mg/dL all other times of the day. Blood CAPILLARY BLOOD / Unknown 06/14/2024 8:54 PM EST 06/14/2024 8:54 PM EST Bobby Loja MD POINT OF CARE TEST O RDBECKIE Performing Organization Address City/[facility]/ZIP Co de Phone Number [facility] [place] [address] * POC, GLUCOSE (06/14/2024 7:51 PM EST) Glucometer, POC 169 65 - 199 mg/dL 06/14/2024 7:[address] [facility] Comment:Supplemental ranges: <140 mg/dL before meals <180 mg/dL all other times of the day. Blood CAPILLARY BLOOD / Unknown 06/14/2024 7:51 PM EST 06/14/2024 7:52 PM EST Bobby Loja MD POINT OF CARE TEST O NIKA Performing Organization Address [facility] Co de Phone Number [facility] [place] [address] * POC, GLUCOSE (06/14/2024 6:49 PM EST) Glucometer, POC 194 65 - 199 mg/dL 06/14/2024 6:[address] [facility] Comment:Supplemental ranges: <140 mg/dL before meals <180 mg/dL all other times of the day. Blood CAPILLARY BLOOD / Unknown 06/14/2024 6:49 PM EST 06/14/2024 6:50 PM EST Bobby Loja MD POINT OF CARE TEST O NIKA Performing Organization Address City/[facility]/ZIP Co de Phone Number [facility] [place] [address] * (ABNORMAL) Hemoglobin (06/14/2024 6:19 PM EST) Hemoglobin 13.1(L) 13.7 - 16.5 g/dL 06/14/2024 7:[address] [facility] Blood VENOUS BLOOD SPECIMEN / Unknown Venipuncture / Unknown 06/14/2024 6:19 PM EST 06/14/2024 6:28 PM EST Bobby Loja MD HEMATOLOGY ORDERABLE S Performing Organization Address [facility]/ZIP Co de Phone Number [facility] [place] [address] * Potassium (06/14/2024 6:19 PM EST) Pathologist [facility] Potassium 3.9 3.5 - 5.0 mMol/L 06/14/2024 6:[address] [facility] Blood VENOUS BLOOD SPECIMEN / Unknown Venipuncture / Unknown 06/14/2024 6:19 PM EST 06/14/2024 6:28 PM EST Bobby Loja MD CHEMISTRY ORDERABLES Performing Organization Address [facility] Co de Phone Number [facility] [place] [address] * (ABNORMAL) POC, GLUCOSE (06/14/2024 6:03 PM EST) [facility] Glucometer, POC 201(H) 65 - 199 mg/dL 06/14/2024 6:[address] [facility] Comment:Supplemental ranges: <140 mg/dL before meals <180 mg/dL all other times of the day. Blood CAPILLARY BLOOD / Unknown 06/14/2024 6:03 PM EST 06/14/2024 6:03 PM EST Narrative Authorizing Provider Result Saranya Loja MD POINT OF CARE TEST O RDERABLES Performing Organization Address City/[facility]/ZIP Co de Phone Number [facility] [place] [address] * (ABNORMAL) Blood Gas, Arterial POC (06/14/2024 4:51 PM EST) [facility] pH, Arterial 7.32(L) 7.35 - 7.45 06/14/2024 4:[address] [facility] PCO2, Arterial 46(H) 35 - 45 mmHg 06/14/2024 4:[address] [facility] PO2, Arterial 85 85 - 104 mmHg 06/14/2024 4:52 PM [facility] Bicarbonate, Arterial 23.1 20.0 - 26.0 mmol/L 06/14/2024 4:52 PM [facility] Base Excess, Arterial -3.1(L) -3.0 - 3.0 mmol/L 06/14/2024 4:52 PM [facility] Hemoglobin, Arterial 14.3 13.7 - 16.5 g/dL 06/14/2024 4:52 PM [facility] Oxyhemoglobin, Arterial 94.7 94.0 - 97.0 % 06/14/2024 4:52 PM [facility] Carboxyhemoglobin , Arterial 0.6 % 06/14/2024 4:52 PM [facility] Comment: Nonsmokers: 0.5-1.5% COHB ?? Smokers: Variable ??but usually less than 10% ?? Toxic: 20-30% COHB ?? Lethal: Greater than 60% COHB Methemoglobin, Arterial 0.0 <=1.5 % 06/14/2024 4:52 PM [facility] Sodium, Arterial 138 135 - 145 mmol/L 06/14/2024 4:52 PM [facility] Potassium, Arterial 4.1 3.5 - 5.0 mmol/L 06/14/2024 4:52 PM [facility] Chloride, Arterial 106 98 - 107 mmol/L 06/14/2024 4:52 PM [facility] Lactate, Arterial 1.3 0.5 - 2.2 mmol/L 06/14/2024 4:52 PM [facility] Fraction of Inspired Oxygen 40 % 06/14/2024 4:52 PM [facility] PF Ratio 213 Ratio 06/14/2024 4:52 PM [facility] Comment:PF ratio calculated using the non-temperature corrected pO2 result. IONIZED CALCIUM, ARTERIAL 1.16 1.15 - 1.33 mmol/L 06/14/2024 4:[address] [facility] Glucose, Arterial 192 65 - 199 mg/dL 06/14/2024 4:[address] [facility] Comment:Glucose Concentratio n >=200 mg/dL plus symptoms is consistent with Diabetes Mellitus. Blood ARTERIAL BLOOD / Unknown 06/14/2024 4:51 PM EST 06/14/2024 4:52 PM EST Bobby Loja MD POINT OF CARE TEST O NIKA Performing Organization Address [facility] Co de Phone Number [facility] [place] [place] [address] * POC, GLUCOSE (06/14/2024 4:00 PM EST) Glucometer, POC 184 65 - 199 mg/dL 06/14/2024 4:[address] [facility] Comment:Supplemental ranges: <140 mg/dL before meals <180 mg/dL all other times of the day. Blood CAPILLARY BLOOD / Unknown 06/14/2024 4:00 PM EST 06/14/2024 4:01 PM EST Bobby Loja MD POINT OF CARE TEST O NIKA Performing Organization Address [facility] Co ar Phone Number [facility] [place] [address] * XR Chest One View (06/14/2024 3:05 PM EST) WORKSTATION ID [id number] RAD Anatomical Region Laterality Modality Chest N/A [...] who have questions please contact the health patient care associate that requested your imaging first. ? Electronically signed by: Stuart Aponte MD, [facility] ??([phone]), at 06/14/2024 4:07 PM Narrative 06/14/2024 4:07 [...] patients who have questions please contactthe health patient care associate that requested your imaging first. Electronically signed by: Stuart Aponte MD, [facility]([phone]), at 06/14/2024 4:07 PM Bobby Loja MD IMG DX ORDERABLES * (ABNORMAL) Blood Gas, Arterial POC (06/14/2024 2:52 PM EST) pH, Arterial 7.28(LLL) 7.35 - 7.45 06/14/2024 2:53 PM [facility] PCO2, Arterial 50(H) 35 - 45 mmHg 06/14/2024 2:53 PM [facility] PO2, Arterial 510(H) 85 - 104 mmHg 06/14/2024 2:53 PM [facility] Bicarbonate, Arterial 22.8 20.0 - 26.0 mmol/L 06/14/2024 2:53 PM [facility] Base Excess, Arterial -4.0(L) -3.0 - 3.0 mmol/L 06/14/2024 2:53 PM [facility] Hemoglobin, Arterial 13.8 13.7 - 16.5 g/dL 06/14/2024 2:53 PM [facility] Oxyhemoglobin, Arterial 99.3(H) 94.0 - 97.0 % 06/14/2024 2:53 PM [facility] Carboxyhemoglobin , Arterial 0.6 % 06/14/2024 2:53 PM [facility] Comment: Nonsmokers: 0.5-1.5% COHB ?? Smokers: Variable ??but usually less than 10% ?? Toxic: 20-30% COHB ?? Lethal: Greater than 60% COHB Methemoglobin, Arterial 0.1 <=1.5 % 06/14/2024 2:[address] [facility] Sodium, Arterial 138 135 - 145 mmol/L 06/14/2024 2:53 PM [facility] Potassium, Arterial 4.2 3.5 - 5.0 mmol/L 06/14/2024 2:53 PM [facility] Chloride, Arterial 106 98 - 107 mmol/L 06/14/2024 2:53 PM [facility] Lactate, Arterial 1.1 0.5 - 2.2 mmol/L 06/14/2024 2:53 PM [facility] Fraction of Inspired Oxygen 100 % 06/14/2024 2:53 PM [facility] PF Ratio 510 Ratio 06/14/2024 2:53 PM [facility] Comment:PF ratio calculated using the non-temperature corrected pO2 result. IONIZED CALCIUM, ARTERIAL 1.15 1.15 - 1.33 mmol/L 06/14/2024 2:53 PM [facility] Glucose, Arterial 169 65 - 199 mg/dL 06/14/2024 2:53 PM [facility] Comment:Glucose Concentratio n >=200 mg/dL plus symptoms is consistent with Diabetes Mellitus. Blood ARTERIAL BLOOD / Unknown 06/14/2024 2:52 PM EST 06/14/2024 2:53 PM EST Bobby Loja MD POINT OF CARE TEST O RDERABLES [facility] [place] [address] * EKG 12 Lead (06/14/2024 2:46 PM EST) Ventricular rate 80 BPM MUSE SYSTEM Atrial Rate 80 BPM MUSE SYSTEM P-R Interval 120 ms MUSE SYSTEM QRS Duration 108 ms MUSE SYSTEM Q-T Interval 454 ms MUSE SYSTEM QTC Calculated (Bezet) 523 ms MUSE SYSTEM Calculated P Stella 70 degrees MUSE SYSTEM Calculated R Stella 56 degrees MUSE SYSTEM Calculated T Stella 50 degrees MUSE SYSTEM INTERPRETATION AV dual-paced rhythm Abnormal ECG When compared with ECG of 03-JUN-2024 01:45, Vent. rate has increased BY ??17 BPM Confirmed by MD Marisol, Shaheen ([id number]) on 06/15/2024 1:57:23 PM MUSE SYSTEM 06/14/2024 2:46 PM EST 06/15/2024 1:57 PM EST Bobby Loja MD ECG ORDERABLES MUSE SYSTEM * Prepare RBC (06/14/2024 2:27 PM EST) Status Information Returned [facility] Product Identification RBC [facility] Unit Number [id number] [facility] Product Code [id number] [facility] Unit Blood Type OPOS [facility] Specimen Expiration Date [facility] Volulme 350 [facility] Issue Date / Time [facility] Status Information Returned [facility] Product Identification RBC [facility] Unit Number [id number] [facility] Product Code [id number] [facility] Unit Blood Type OPOS [facility] Specimen Expiration Date [facility] Volulme 350 [facility] Issue Date / Time [facility] Blood 06/14/2024 6:2 5 AM EST Haja Byrnes MD BLOOD BANK PRODUCT O RDERABLES [facility] [place] [address] * (ABNORMAL) Cooximetry, POC (06/14/2024 1:52 PM EST) pO2, Coox 58 mmHg 06/14/2024 1:[address] [facility] Hemoglobin, Coox 12.6(L) 13.7 - 16.5 g/dL 06/14/2024 1:[address] [facility] Oxyhemoglobin, Coox 85.5 % 06/14/2024 1:55 PM [facility] Carboxyhemoglo bin, Coox 0.3 % 06/14/2024 1:55 PM [facility] Comment: Nonsmokers: 0.5-1.5% COHB ?? Smokers: Variable ??but usually less than 10% ?? Toxic: 20-30% COHB ?? Lethal: Greater than 60% COHB Methemoglobin, Coox 0.6 <=1.5 % 06/14/2024 1:55 PM [facility] Blood (Mixed Venous) 06/14/2024 1:52 PM EST 06/14/2024 1:55 PM EST Haja Byrnes MD POINT OF CARE TEST O RDERABLES Performing Organization Address City/State/[facility] Co de Phone Number [facility] [place] [address] * (ABNORMAL) Blood Gas, Arterial POC (06/14/2024 12:47 PM EST) pH, Arterial 7.33(L) 7.35 - 7.45 06/14/2024 12:48 [address] [facility] PCO2, Arterial 46(H) 35 - 45 mmHg 06/14/2024 12:48 PM [facility] PO2, Arterial 358(H) 85 - 104 mmHg 06/14/2024 12:48 PM [facility] Bicarbonate, Arterial 23.8 20.0 - 26.0 mmol/L 06/14/2024 12:48 PM [facility] Base Excess, Arterial -2.1 -3.0 - 3.0 mmol/L 06/14/2024 12:48 PM [facility] Hemoglobin, Arterial 11.7(L) 13.7 - 16.5 g/dL 06/14/2024 12:48 PM [facility] Oxyhemoglobin, Arterial 98.7(H) 94.0 - 97.0 % 06/14/2024 12:[address] [facility] Carboxyhemoglobin , Arterial 0.3 % 06/14/2024 12:48 PM [facility] Comment: Nonsmokers: 0.5-1.5% COHB ?? Smokers: Variable ??but usually less than 10% ?? Toxic: 20-30% COHB ?? Lethal: Greater than 60% COHB Methemoglobin, Arterial 0.5 <=1.5 % 06/14/2024 12:[address] [facility] Sodium, Arterial 135 135 - 145 mmol/L 06/14/2024 12:48 PM [facility] Potassium, Arterial 5.0 3.5 - 5.0 mmol/L 06/14/2024 12:48 PM [facility] Chloride, Arterial 106 98 - 107 mmol/L 06/14/2024 12:48 PM [facility] Lactate, Arterial 1.4 0.5 - 2.2 mmol/L 06/14/2024 12:48 PM [facility] IONIZED CALCIUM, ARTERIAL 1.09(L) 1.15 - 1.33 mmol/L 06/14/2024 12:48 PM [facility] Glucose, Arterial 157 65 - 199 mg/dL 06/14/2024 12:[address] [facility] Comment:Glucose Concentratio n >=200 mg/dL plus symptoms is consistent with Diabetes Mellitus. Blood ARTERIAL BLOOD / Unknown 06/14/2024 12:47 PM EST 06/14/2024 12:48 PM EST Haja Byrnes MD POINT OF CARE TEST O RDERABLES [facility] [place] [address] * (ABNORMAL) Cooximetry, POC (06/14/2024 12:42 PM [...] TEST O RDERABLES [facility] [place] [address] * (ABNORMAL) Platelet count (06/14/2024 12:30 PM EST) Platelet 73(L) 145 - 357 x10(3)/mcL 06/14/2024 12:[address] [facility] Blood ARTERIAL BLOOD / Unknown 06/14/2024 12:30 PM EST Comment:Pre-op diagnosis: CAD Bobby Loja MD HEMATOLOGY ORDERABLE S [facility] [place] [address] * (ABNORMAL) Hemoglobin and Hematocrit, blood (06/14/2024 [...] MD HEMATOLOGY ORDERABLE S Performing Organization Address [facility]/ZIP Co de Phone Number [facility] [place] [address] * APTT (06/14/2024 12:30 PM EST) Partial [...] MD HEMATOLOGY ORDERABLE S Performing Organization Address City/[facility]/ZIP Co de Phone Number [facility] [place] [address] * (ABNORMAL) Prothrombin Time (06/14/2024 12:30 PM [...] MD HEMATOLOGY ORDERABLE S Performing Organization Address [facility] Co de Phone Number [facility] [place] [address] * Fibrinogen (06/14/2024 12:30 PM EST) Fibrinogen 211 200 - 393 mg/dL 06/14/2024 12:[address] [facility] Comment: A fibrinogen level >100 mg/dL is adequate for hemostasis in most patients without underlying bleeding disorders. Blood ARTERIAL BLOOD / Unknown 06/14/2024 12:30 PM EST 06/14/2024 12:42 PM EST Comment:Pre-op diagnosis: CAD Bobby Loja MD HEMATOLOGY ORDERABLE S Performing Organization Address [facility] de Phone Number [facility] [place] [address] * (ABNORMAL) Blood Gas, Arterial POC (06/14/2024 12:15 PM EST) pH, Arterial 7.38 7.35 - 7.45 06/14/2024 12:[address] [facility] PCO2, Arterial 40 35 - 45 mmHg 06/14/2024 12:[address] [facility] Bicarbonate, Arterial 22.9 20.0 - 26.0 mmol/L 06/14/2024 12:[address] [facility] Base Excess, Arterial -2.3 -3.0 - 3.0 mmol/L 06/14/2024 12:[address] [facility] Hemoglobin, Arterial 11.4(L) 13.7 - 16.5 g/dL 06/14/2024 12:[address] [facility] Oxyhemoglobin, Arterial 98.8(H) 94.0 - 97.0 % 06/14/2024 12:16 PM [facility] Carboxyhemoglobin , Arterial 0.3 % 06/14/2024 12:16 PM [facility] Comment: Nonsmokers: 0.5-1.5% COHB ?? Smokers: Variable ??but usually less than 10% ?? Toxic: 20-30% COHB ?? Lethal: Greater than 60% COHB Methemoglobin, Arterial 0.6 <=1.5 % 06/14/2024 12:16 PM [facility] Sodium, Arterial 134(L) 135 - 145 mmol/L 06/14/2024 12:16 PM [facility] Potassium, Arterial 5.4(H) 3.5 - 5.0 mmol/L 06/14/2024 12:16 PM [facility] Chloride, Arterial 105 98 - 107 mmol/L 06/14/2024 12:16 PM [facility] Lactate, Arterial 1.3 0.5 - 2.2 mmol/L 06/14/2024 12:16 PM [facility] IONIZED CALCIUM, ARTERIAL 1.08(L) 1.15 - 1.33 mmol/L 06/14/2024 12:16 PM [facility] Glucose, Arterial 161 65 - 199 mg/dL 06/14/2024 12:16 PM [facility] Comment:Glucose Concentratio n >=200 mg/dL plus symptoms is consistent with Diabetes Mellitus. Blood ARTERIAL BLOOD / Unknown 06/14/2024 12:15 PM EST 06/14/2024 12:16 PM EST Haja Byrnes MD POINT OF CARE TEST O RDERABLES [facility] [place] [address] * (ABNORMAL) Blood Gas, Arterial POC (06/14/2024 11:51 AM [facility]) pH, Arterial 7.40 7.35 - 7.45 06/14/2024 11:52 [address] [facility] PCO2, Arterial 41 35 - 45 mmHg 06/14/2024 11:52 AM [facility] PO2, Arterial 332(H) 85 - 104 mmHg 06/14/2024 11:52 AM [facility] Bicarbonate, Arterial 24.7 20.0 - 26.0 mmol/L 06/14/2024 11:52 AM [facility] Base Excess, Arterial -0.1 -3.0 - 3.0 mmol/L 06/14/2024 11:52 AM [facility] Hemoglobin, Arterial 11.1(L) 13.7 - 16.5 g/dL 06/14/2024 11:52 AM [facility] Oxyhemoglobin, Arterial 98.7(H) 94.0 - 97.0 % 06/14/2024 11:52 AM [facility] Carboxyhemoglobin , Arterial 0.3 % 06/14/2024 11:52 AM [facility] Comment: Nonsmokers: 0.5-1.5% COHB ?? Smokers: Variable ??but usually less than 10% ?? Toxic: 20-30% COHB ?? Lethal: Greater than 60% COHB Methemoglobin, Arterial 0.4 <=1.5 % 06/14/2024 11:52 AM [facility] Sodium, Arterial 135 135 - 145 mmol/L 06/14/2024 11:52 AM [facility] Potassium, Arterial 5.7(H) 3.5 - 5.0 mmol/L 06/14/2024 11:52 AM [facility] Chloride, Arterial 105 98 - 107 mmol/L 06/14/2024 11:52 AM [facility] Lactate, Arterial 1.2 0.5 - 2.2 mmol/L 06/14/2024 11:52 AM [facility] IONIZED CALCIUM, ARTERIAL 1.10(L) 1.15 - 1.33 mmol/L 06/14/2024 11:52 AM [facility] Glucose, Arterial 148 65 - 199 mg/dL 06/14/2024 11:52 AM [facility] Comment:Glucose Concentratio n >=200 mg/dL plus symptoms is consistent with Diabetes Mellitus. Blood ARTERIAL BLOOD / Unknown 06/14/2024 11:51 AM EST 06/14/2024 11:52 AM EST Haja Byrnes MD POINT OF CARE TEST O RDERABLES [facility] [place] [address] * (ABNORMAL) Blood Gas, Arterial POC (06/14/2024 11:27 AM EST) pH, Arterial 7.38 7.35 - 7.45 06/14/2024 11:28 AM [facility] PCO2, Arterial 37 35 - 45 mmHg 06/14/2024 11:28 AM [facility] PO2, Arterial 348(H) 85 - 104 mmHg 06/14/2024 11:28 AM [facility] Bicarbonate, Arterial 21.1 20.0 - 26.0 mmol/L 06/14/2024 11:28 AM [facility] Base Excess, Arterial -4.1(L) -3.0 - 3.0 mmol/L 06/14/2024 11:28 AM [facility] Hemoglobin, Arterial 11.0(L) 13.7 - 16.5 g/dL 06/14/2024 11:28 AM [facility] Oxyhemoglobin, Arterial 98.7(H) 94.0 - 97.0 % 06/14/2024 11:28 AM [facility] Carboxyhemoglobin , Arterial 0.3 % 06/14/2024 11:28 AM [facility] Comment: Nonsmokers: 0.5-1.5% COHB ?? Smokers: Variable ??but usually less than 10% ?? Toxic: 20-30% COHB ?? Lethal: Greater than 60% COHB Methemoglobin, Arterial 0.4 <=1.5 % 06/14/2024 11:28 AM [facility] Sodium, Arterial 132(L) 135 - 145 mmol/L 06/14/2024 11:28 AM [facility] Potassium, Arterial 5.8(H) 3.5 - 5.0 mmol/L 06/14/2024 11:28 AM [facility] Chloride, Arterial 105 98 - 107 mmol/L 06/14/2024 11:28 AM [facility] Lactate, Arterial 1.1 0.5 - 2.2 mmol/L 06/14/2024 11:28 AM [facility] IONIZED CALCIUM, ARTERIAL 1.03(L) 1.15 - 1.33 mmol/L 06/14/2024 11:28 AM [facility] Glucose, Arterial 147 65 - 199 mg/dL 06/14/2024 11:28 AM [facility] Comment:Glucose Concentratio n >=200 mg/dL plus symptoms is consistent with Diabetes Mellitus. Blood ARTERIAL BLOOD / Unknown 06/14/2024 11:27 AM EST 06/14/2024 11:28 AM EST Haja Byrnes MD POINT OF CARE TEST O RDERABLES Performing Organization Address City/State/[facility] Co de Phone Number [facility] [place] [address] * (ABNORMAL) Scan, Peripheral Blood (06/14/2024 11:23 AM EST) RBC Morphology Abnormal 06/14/2024 11:59 AM [facility] Platelet Estimate Decreased(A) Normal 06/14/2024 11:59 AM [facility] [place] cells 1-5 /HPF 06/14/2024 11:59 AM [facility] Blood ARTERIAL BLOOD / Unknown 06/14/2024 11:23 AM EST 06/14/2024 11:27 AM EST Bobby Loja MD HEMATOLOGY ORDERABLE S [facility] [place] [address] * (ABNORMAL) Platelet count (06/14/2024 11:23 AM EST) Platelet 86(L) 145 - 357 x10(3)/mcL 06/14/2024 11:[address] [facility] Blood ARTERIAL BLOOD / Unknown 06/14/2024 11:23 AM EST Comment:Pre-op diagnosis: CAD Bobby Loja MD HEMATOLOGY ORDERABLE S Performing Organization Address [facility] Co de Phone Number [facility] [place] [address] * (ABNORMAL) Hemoglobin and Hematocrit, blood (06/14/2024 [...] HEMATOLOGY ORDERABLE S [facility] [place] [address] * (ABNORMAL) Blood Gas, Arterial POC (06/14/2024 10:58 AM [facility]) pH, Arterial 7.38 7.35 - 7.45 06/14/2024 10:59 AM [facility] PCO2, Arterial 43 35 - 45 mmHg 06/14/2024 10:59 AM [facility] PO2, Arterial 401(H) 85 - 104 mmHg 06/14/2024 10:59 AM [facility] Bicarbonate, Arterial 24.8 20.0 - 26.0 mmol/L 06/14/2024 10:59 AM [facility] Base Excess, Arterial -0.5 -3.0 - 3.0 mmol/L 06/14/2024 10:59 AM [facility] Hemoglobin, Arterial 11.9(L) 13.7 - 16.5 g/dL 06/14/2024 10:59 AM [facility] Oxyhemoglobin, Arterial 99.0(H) 94.0 - 97.0 % 06/14/2024 10:59 AM [facility] Carboxyhemoglobin , Arterial 0.3 % 06/14/2024 10:59 AM [facility] Comment: Nonsmokers: 0.5-1.5% COHB ?? Smokers: Variable ??but usually less than 10% ?? Toxic: 20-30% COHB ?? Lethal: Greater than 60% COHB Methemoglobin, Arterial 0.3 <=1.5 % 06/14/2024 10:59 AM [facility] Sodium, Arterial 128(L) 135 - 145 mmol/L 06/14/2024 10:59 AM [facility] Potassium, Arterial 6.6(HHH) 3.5 - 5.0 mmol/L 06/14/2024 10:59 AM [facility] Chloride, Arterial 99 98 - 107 mmol/L 06/14/2024 10:59 AM [facility] Lactate, Arterial 1.3 0.5 - 2.2 mmol/L 06/14/2024 10:59 AM [facility] IONIZED CALCIUM, ARTERIAL 1.00(L) 1.15 - 1.33 mmol/L 06/14/2024 10:59 AM [facility] Glucose, Arterial 155 65 - 199 mg/dL 06/14/2024 10:59 AM [facility] Comment:Glucose Concentratio n >=200 mg/dL plus symptoms is consistent with Diabetes Mellitus. Blood ARTERIAL BLOOD / Unknown 06/14/2024 10:58 AM EST 06/14/2024 10:59 AM EST Haja Byrnes MD POINT OF CARE TEST O RDERABLES [facility] [place] [address] * (ABNORMAL) Blood Gas, Arterial POC (06/14/2024 10:26 AM EST) pH, Arterial 7.29(LLL) 7.35 - 7.45 06/14/2024 10:27 AM [facility] PCO2, Arterial 43 35 - 45 mmHg 06/14/2024 10:27 AM [facility] PO2, Arterial 369(H) 85 - 104 mmHg 06/14/2024 10:27 AM [facility] Bicarbonate, Arterial 19.9(L) 20.0 - 26.0 mmol/L 06/14/2024 10:27 AM [facility] Base Excess, Arterial -6.7(L) -3.0 - 3.0 mmol/L 06/14/2024 10:27 AM [facility] Hemoglobin, Arterial 12.6(L) 13.7 - 16.5 g/dL 06/14/2024 10:27 AM [facility] Oxyhemoglobin, Arterial 99.1(H) 94.0 - 97.0 % 06/14/2024 10:27 AM [facility] Carboxyhemoglobin , Arterial 0.1 % 06/14/2024 10:27 AM [facility] Comment: Nonsmokers: 0.5-1.5% COHB ?? Smokers: Variable ??but usually less than 10% ?? Toxic: 20-30% COHB ?? Lethal: Greater than 60% COHB Methemoglobin, Arterial 0.4 <=1.5 % 06/14/2024 10:27 AM [facility] Sodium, Arterial 129(L) 135 - 145 mmol/L 06/14/2024 10:27 AM [facility] Potassium, Arterial 5.0 3.5 - 5.0 mmol/L 06/14/2024 10:27 AM [facility] Chloride, Arterial 99 98 - 107 mmol/L 06/14/2024 10:27 AM [facility] Lactate, Arterial 0.9 0.5 - 2.2 mmol/L 06/14/2024 10:27 AM [facility] IONIZED CALCIUM, ARTERIAL 1.05(L) 1.15 - 1.33 mmol/L 06/14/2024 10:27 AM [facility] Glucose, Arterial 149 65 - 199 mg/dL 06/14/2024 10:27 AM [facility] Comment:Glucose Concentratio n >=200 mg/dL plus symptoms is consistent with Diabetes Mellitus. Blood ARTERIAL BLOOD / Unknown 06/14/2024 10:26 AM EST 06/14/2024 10:27 AM EST Haja Byrnes MD POINT OF CARE TEST O RDERABLES [facility] [place] [address] * (ABNORMAL) Blood Gas, Arterial POC (06/14/2024 10:25 AM EST) pH, Arterial 7.26(LLL) 7.35 - 7.45 06/14/2024 10:26 AM [facility] PCO2, Arterial 48(H) 35 - 45 mmHg 06/14/2024 10:26 AM [facility] Bicarbonate, Arterial 21.2 20.0 - 26.0 mmol/L 06/14/2024 10:26 AM [facility] Base Excess, Arterial -5.8(L) -3.0 - 3.0 mmol/L 06/14/2024 10:26 AM [facility] Hemoglobin, Arterial 12.5(L) 13.7 - 16.5 g/dL 06/14/2024 10:26 AM [facility] Oxyhemoglobin, Arterial 82.3(L) 94.0 - 97.0 % 06/14/2024 10:26 AM [facility] Carboxyhemoglobin , Arterial 0.5 % 06/14/2024 10:26 AM [facility] Comment: Nonsmokers: 0.5-1.5% COHB ?? Smokers: Variable ??but usually less than 10% ?? Toxic: 20-30% COHB ?? Lethal: Greater than 60% COHB Methemoglobin, Arterial 0.5 <=1.5 % 06/14/2024 10:26 AM [facility] Sodium, Arterial 131(L) 135 - 145 mmol/L 06/14/2024 10:26 AM [facility] Potassium, Arterial 4.6 3.5 - 5.0 mmol/L 06/14/2024 10:26 AM [facility] Chloride, Arterial 103 98 - 107 mmol/L 06/14/2024 10:26 AM [facility] Lactate, Arterial 0.8 0.5 - 2.2 mmol/L 06/14/2024 10:26 AM [facility] IONIZED CALCIUM, ARTERIAL 0.91(LLL) 1.15 - 1.33 mmol/L 06/14/2024 10:26 AM [facility] Glucose, Arterial 148 65 - 199 mg/dL 06/14/2024 10:26 AM [facility] Comment:Glucose Concentratio n >=200 mg/dL plus symptoms is consistent with Diabetes Mellitus. Blood ARTERIAL BLOOD / Unknown 06/14/2024 10:25 AM EST 06/14/2024 10:26 AM EST Haja Byrnes MD POINT OF CARE TEST O RDERABLES [facility] [place] [address] * Surgical Pathology (06/14/2024 9:53 AM EST) Case Report Surgical Pathology Report ? Case: [id number] ? Authorizing Provider: ??Bobby Loja MD ? Collected: ? 06/14/2024 0953 ? Ordering Location: ? Main Operating Room [facility] ?? Received: ?06/14/2024 1413 ? [facility] ([facility] ? Hospital ? Pathologist: ? Sandra Salas MD ? Specimens: ?? A) - Soft Tissue Mass, mediastinal mass ? B) - Heart, Atrial Appendage, Left ? 06/18/2024 10:18 AM [facility] Final Diagnosis A. Soft Tissue Mass, Mediastinal Mass, Excision: - Atrophic thymic tissue B. Heart, Atrial Appendage, Left, Excision: - Mild myocyte hypertrophy 06/18/2024 10:18 AM [facility] Clinical Information A. Soft Tissue Mass, mediastinal mass Soft tissue mass Mediastinal mass B. Heart, Atrial Appendage, Left, *Other - as specified in Clinical Information MARIALUISA 06/18/2024 10:18 AM [facility] Gross Description A. Soft Tissue Mass, mediastinal mass. A - Labeled/Fixative : Mediastinal mass, fresh. Quantity/Size: Single, 7.2 x 5.3 x 1.2 cm. Tissue Description: Unoriented, intact portion of soft, rodriguez-yellow, lobulated tissue. The cut surface is homogenously pale-rodriguez, yellow and lobulated. No lesions or nodules are identified. Inking: External surface inked black Sections/Process ing: Manager Neonatal sections in 4 cassettes labeled A1-A4. cmk B. Heart, Atrial Appendage, Left, . B - Labeled/Fixative : Heart, atrial appendage, left, fresh. Quantity/Size: Single, 3.3 x 1.5 x 0.8 cm. Tissue Description: Portion of heart tissue consisting of rodriguez-white, semitranslucent, smooth endocardium with rodriguez-brown muscular myocardium and thin translucent epicardium with adherent adipose tissue. No areas of discoloration identified. Sections/Process ing: Manager Neonatal sections in 1 cassette labeled B1. cmk 06/18/2024 10:18 AM [facility] Result Note Routine 06/18/2024 10:18 AM [facility] Tissue SOFT TISSUE MASS / Unknown 06/14/2024 9:53 AM EST 06/14/2024 2:13 PM EST Comment:Mediastinal mass Tissue specimen (specimen) LEFT ATRIAL APPENDAGE ABSENT / Unknown 06/14/2024 10:54 AM EST 06/14/2024 2:13 PM EST Comment:MARIALUISA Bobby Loja MD PATHOLOGY/CYTOLOGY O RDERABLES [facility] [place] [address] * Cooximetry, POC (06/14/2024 9:00 AM EST) pO2, Coox 57 mmHg 06/14/2024 9:04 AM [facility] PO2 Corrected, COOX 50 mmHg 06/14/2024 9:04 AM [facility] Hemoglobin, Coox 14.3 13.7 - 16.5 g/dL 06/14/2024 9:04 AM [facility] Oxyhemoglobin, Coox 86.2 % 06/14/2024 9:04 AM [facility] Carboxyhemoglobi n, Coox 0.3 % 06/14/2024 9:04 AM [facility] Comment: Nonsmokers: 0.5-1.5% COHB ?? Smokers: Variable ??but usually less than 10% ?? Toxic: 20-30% COHB ?? Lethal: Greater than 60% COHB Methemoglobin, Coox 0.3 <=1.5 % 06/14/2024 9:04 AM [facility] Temperature Coox 35.2 C 06/14/20 24 9:04 AM [facility] Blood (Mixed Venous) 06/14/2024 9:00 AM EST 06/14/2024 9:04 AM EST Haja Byrnes MD POINT OF CARE TEST O RDERABLES [facility] [place] [address] * (ABNORMAL) Blood Gas, Arterial POC (06/14/2024 8:39 AM EST) pH, Arterial 7.37 7.35 - 7.45 06/14/2024 8:40 AM [facility] PCO2, Arterial 42 35 - 45 mmHg 06/14/2024 8:40 AM [facility] PO2, Arterial 341(H) 85 - 104 mmHg 06/14/2024 8:40 AM [facility] Bicarbonate, Arterial 23.7 20.0 - 26.0 mmol/L 06/14/2024 8:40 AM [facility] Base Excess, Arterial -1.6 -3.0 - 3.0 mmol/L 06/14/2024 8:40 AM [facility] Hemoglobin, Arterial 15.2 13.7 - 16.5 g/dL 06/14/2024 8:40 AM [facility] Oxyhemoglobin, Arterial 99.2(H) 94.0 - 97.0 % 06/14/2024 8:40 AM [facility] Carboxyhemoglobin , Arterial 0.1 % 06/14/2024 8:40 AM [facility] Comment: Nonsmokers: 0.5-1.5% COHB ?? Smokers: Variable ??but usually less than 10% ?? Toxic: 20-30% COHB ?? Lethal: Greater than 60% COHB Methemoglobin, Arterial 0.3 <=1.5 % 06/14/2024 8:40 AM [facility] Sodium, Arterial 136 135 - 145 mmol/L 06/14/2024 8:40 AM [facility] Potassium, Arterial 4.2 3.5 - 5.0 mmol/L 06/14/2024 8:[address] [facility] Chloride, Arterial 102 98 - 107 mmol/L 06/14/2024 8:[address] [facility] Lactate, Arterial 0.9 0.5 - 2.2 mmol/L 06/14/2024 8:[address] [facility] IONIZED CALCIUM, ARTERIAL 1.17 1.15 - 1.33 mmol/L 06/14/2024 8:[address] [facility] Glucose, Arterial 121 65 - 199 mg/dL 06/14/2024 8:[address] [facility] Comment:Glucose Concentratio n >=200 mg/dL plus symptoms is consistent with Diabetes Mellitus. Blood ARTERIAL BLOOD / Unknown 06/14/2024 8:39 AM EST 06/14/2024 8:40 AM EST Haja Byrnes MD POINT OF CARE TEST O RDERABLES Performing Organization Address City/State/[facility] Co de Phone Number [facility] [place] [address] * Transesophageal Echo/OR (06/14/2024 7:20 AM EST) Anatomical Region Laterality Modality Cardiac Other 06/14/2024 7:20 AM EST Narrative 06/14/2024 4:36 PM EST Version: 2 Study ID: [id number] [address] [place] [address] ?OR Transesophageal Echo Report Name: GEORGE MEHTA [...] of this mass after consultation with other senior quality analyst experts and the decision was made by [...] MD - 06/14/2024 Version: 2 Study ID: [id number] [address] [place] [id number] ORTransesophageal Echo Report Name: GEORGE MEHTA Study [...] of this mass after consultation with other senior quality analyst experts and thedecision was made by surgeon [...] CARE TEST O RDERAPIETER Performing Organization Address City/[facility]/ZIP Co de Phone Number [facility] [place] [address] * POC, GLUCOSE (06/14/2024 4:30 AM EST) Glucometer, POC 85 65 - 199 mg/dL 06/14/2024 4:[address] [facility] Comment:Supplemental ranges: <140 mg/dL before meals <180 mg/dL all other times of the day. Blood CAPILLARY BLOOD / Unknown 06/14/2024 4:30 AM EST 06/14/2024 4:30 AM EST Haja Byrnes MD POINT OF CARE TEST O RDBECKIE Performing Organization Address City/[facility]/ZIP Co de Phone Number [facility] [place] [address] * (ABNORMAL) Heparin (unfractionated) Level (06/14/2024 12:12 AM EST) UF Heparin 1.02(HHH) IU/mL 06/14/2024 12:[address] [facility] HEMATOLOGY ORDERABLE S [facility] [place] [address] * (ABNORMAL) CBC (with Diff) (06/14/2024 12:12 AM EST) White Blood Cell 10.51(H) 4.00 - 9.50 x10(3)/mc L 06/14/2024 12:[address] [facility] Red Blood Cell 4.99 4.58 - 5.54 x10(6)/mc L 06/14/2024 12:[address] [facility] Hemoglobin 14.9 13.7 - 16.5 g/dL 06/14/2024 12:[address] [facility] Hematocrit 45.9 40.5 - 48.5 % 06/14/2024 12:38 [address] [facility] Mean Cell Volume 92.0 82.9 - 93.1 fL 06/14/2024 12:38 AM [facility] Mean Cell Hemoglobin 29.9 27.5 - 32.1 pg 06/14/2024 12:38 AM [facility] Mean Cell Hemoglobin Concentration 32.5 32.0 - 35.7 g/dL 06/14/2024 12:38 AM [facility] Platelet 162 145 - 357 x10(3)/mc L 06/14/2024 12:38 AM [facility] Mean Platelet Volume 10.1 7.6 - 12.9 fL 06/14/2024 12:38 AM [facility] RDW Standard Deviation 46.9(H) 36.0 - 45.0 fL 06/14/2024 12:38 AM [facility] RDW coefficient of variation 13.8 11.4 - 13.8 % 06/14/2024 12:38 AM [facility] NRBC% auto 0.0 % 06/14/2024 12:38 AM [facility] NRBC Absolute <0.01 <0.01 x10(3)/mc L 06/14/2024 12:38 AM [facility] Neutrophil % 56.7 % 06/14/2024 12:38 AM [facility] Neutrophil Absolute (ANC) - Automated 5.96 1.70 - 6.10 x10(3)/mc L 06/14/2024 12:38 AM [facility] Lymph % 26.8 % 06/14/2024 12:38 AM [facility] Lymph Absolute 2.82 0.90 - 3.20 x10(3)/mc L 06/14/2024 12:38 AM [facility] Monocyte % 11.2 % 06/14/2024 12:38 AM [facility] Monocyte Absolute 1.18(H) 0.30 - 0.90 x10(3)/mc L 06/14/2024 12:[address] [facility] Eos % 3.9 % 06/14/2024 12:38 AM [facility] Eos Absolute 0.41(H) 0.00 - 0.40 x10(3)/mc L 06/14/2024 12:[address] [facility] Basophil % 0.8 % 06/14/2024 12:38 AM [facility] Baso Absolute 0.08 0.00 - 0.10 x10(3)/mc L 06/14/2024 12:38 AM [facility] Immature Gran % 0.6 % 12:38 AM [facility] Immature Gran Absolute 0.06(H) 0.00 - 0.04 x10(3)/mc L 06/14/2024 12:38 AM [facility] Blood VENOUS BLOOD SPECIMEN / Unknown Venipuncture / Unknown 06/14/2024 12:12 AM EST 06/14/2024 12:29 AM EST Shahnaz Scanlon MD HEMATOLOGY ORDERABLE S [facility] [place] [address] * Magnesium (06/14/2024 12:12 AM EST) Magnesium 0.74 0.69 - 1.07 mMol/L 06/14/2024 12:[address] [facility] Blood VENOUS BLOOD SPECIMEN / Unknown Venipuncture / Unknown 06/14/2024 12:12 AM EST 06/14/2024 12:29 AM EST Shahnaz Scanlon MD CHEMISTRY ORDERABLES [facility] [place] [address] * (ABNORMAL) Basic Metabolic Panel (06/14/2024 12:12 AM EST) Glucose 97 65 - 199 mg/dL 06/14/2024 12:57 AM [facility] Comment:Glucose Concentratio n >=200 mg/dL plus symptoms is consistent with Diabetes Mellitus. Blood Urea Nitrogen 25(H) 10 - 20 mg/dL 06/14/2024 12:57 AM [facility] Creatinine 1.14 0.80 - 1.50 mg/dL 06/14/2024 12:57 AM [facility] Sodium 135 135 - 145 mMol/L 06/14/2024 12:57 AM [facility] Potassium 4.1 3.5 - 5.0 mMol/L 06/14/2024 12:57 AM [facility] Chloride 100 98 - 107 mMol/L 06/14/2024 12:57 AM [facility] Carbon Dioxide 25 22 - 31 mMol/L 06/14/2024 12:57 AM [facility] Anion Gap 10 5 - 15 mMol/L 06/14/2024 12:57 AM [facility] Calcium 9.5 8.5 - 10.5 mg/dL 06/14/2024 12:57 AM [facility] Est Glomerular Filtration Rate - Male 70 mL/min/1. 73 m?? 06/14/2024 12:57 AM [facility] Comment: [...] Scanlon MD CHEMISTRY ORDERABLES Performing Organization Address [facility]/ZIP Co de Phone Number [facility] [place] [place] [address] * Scan Doc: Implantable Devices (06/14/2024 12:00 [...] CARE TEST O NIKA Performing Organization Address [facility]/ZIP Co de Phone Number [facility] [place] [address] * (ABNORMAL) POC, GLUCOSE (06/13/2024 8:03 PM EST) Glucometer, POC 206(H) 65 - 199 mg/dL 06/13/2024 8:[address] [facility] Comment:Supplemental ranges: <140 mg/dL before meals <180 mg/dL all other times of the day. Blood CAPILLARY BLOOD / Unknown 06/13/2024 8:03 PM EST 06/13/2024 8:03 PM EST Haja Byrnes MD POINT OF CARE TEST O NIKA Performing Organization Address City/[facility]/ZIP Co de Phone Number [facility] [place] [address] * Heparin (unfractionated) Level (06/13/2024 4:11 PM EST) Pathologist [facility] Heparin 0.76 IU/mL 06/13/2024 4:24 PM [...] HEMATOLOGY ORDERABLE S [facility] [place] [address] * ABORH RECHECK (06/13/2024 4:11 PM EST) Pathologist [facility] ABORH Recheck O POSITIVE 06/13/2024 4:50 PM EST [facility] Blood VENOUS BLOOD SPECIMEN / Unknown Venipuncture / Unknown 06/13/2024 4:11 PM EST 06/13/2024 4:19 PM EST Haja Byrnes MD BLOOD BANK LAB ORDER [place] Performing Organization Address City/[facility]/ZIP Co de Phone Number [facility] [place] [address] * (ABNORMAL) POC, GLUCOSE (06/13/2024 4:09 PM EST) Glucometer, POC 216(H) 65 - 199 mg/dL 06/13/2024 4:[address] [facility] Comment:Supplemental ranges: <140 mg/dL before meals <180 mg/dL all other times of the day. Blood CAPILLARY BLOOD / Unknown 06/13/2024 4:09 PM EST 06/13/2024 4:10 PM EST Haja Byrnes MD POINT OF CARE TEST O RDERABLES [facility] [place] [address] * Type and screen ([facility]/CGP/RAFITA) (06/13/2024 11:53 AM EST) [facility] ABORH Type O POSITIVE 06/13/2024 1:16 PM EST [facility] PATIENT HISTORY Not Found 06/13/2024 1:16 PM EST [facility] Expires at [id number] on: 06/16/2024 06/13/2024 1:16 PM EST [facility] ANTIBODY SCREEN AUTOMATED Negative 06/13/2024 1:16 PM EST [facility] T&S only valid at [facility] 06/13/2024 1:16 PM EST [facility] Blood VENOUS BLOOD SPECIMEN / Unknown Venipuncture / Unknown 06/13/2024 11:53 AM EST 06/13/2024 11:56 AM EST Narrative [facility] - 06/13/2024 1:16 PM EST This Type and Screen result is only valid at the [facility] Haja Byrnes MD BLOOD BANK LAB ORDER [place] [facility] [place] [address] * POC, GLUCOSE (06/13/2024 11:50 AM EST) Glucometer, POC 178 65 - 199 mg/dL 06/13/2024 11:[address] [facility] Comment:Supplemental ranges: <140 mg/dL before meals <180 mg/dL all other times of the day. Blood CAPILLARY BLOOD / Unknown 06/13/2024 11:50 AM EST 06/13/2024 11:51 AM EST Haja Byrnes MD POINT OF CARE TEST O RDERABLES [facility] [place] [address] * XR Chest One View (06/13/2024 10:35 AM EST) WORKSTATION ID [id number] RAD Anatomical Region Laterality Modality Chest N/A [...] who have questions please contact the health patient care associate that requested your imaging first. ? Narrative [...] patients who have questions please contactthe health patient care associate that requested your imaging first. Electronically signed by: Jyothi Simon MD, [facility]([phone]), at 06/13/2024 10:43 AM Haja Byrnes MD IMG DX ORDERABLES * CARDIAC CATHETERIZATION (06/13/2024 9:02 AM EST) Anatomical Region Laterality Modality Other Narrative 06/15/2024 9:07 AM EST ?[facility] ? Cardiac Catheterization/Intervention Report ? Patient Name: Tyson, George L. ? Procedure Date: 06/13/2024 ? A #: [id number] ? Primary Physician: Nuha Shen I ? Case #: [id number] ? File Name: [id number] ? Catheterization Order Number: [id number] ? [facility] ? Final Report [place], [place] ? Patient Name: ? George L. Tyson ? ID#: ?[id number] ? : ?1955 ? Procedure Date: ? June 13, 2024 ?Case #: ? [id number] ? Room: ? 6 ? Case Physician: [...] ?was designated as ASA Class IV. The [facility] clinical frailty scale is 5: [...] procedure was Urgent. The indication for ?the blood bank laboratory professional visit is ACS greater than 24 hrs [...] angiography, vascular ?ultrasound and IABP insertion in blood bank laboratory professional. ? Nuha Shen, M.D. ? Electronically Signed by: Nuha Shen, M.D. ? Report Finalized: 06/15/2024 ??08:59 ? Procedure Note Nuha Shen MD - 06/15/2024 [facility] Cardiac Catheterization/Intervention Report Patient Name: George Mehta Procedure Date: 06/13/2024 A #: [id number] Primary Physician: Nuha Shen I Case #: [id number] File Name: [id number] Catheterization Order Number: [id number] [facility] FinalReport [place], [place] Patient Name: George Mehta ID#:[id number] :1955 Procedure Date: June 13, 2024 Case [...] was designated as ASA Class IV. The [facility] clinical frailty scale is5: Mildly [...] diagnostic procedure was Urgent. The indicationfor the blood bank laboratory professional visit is ACS greater than 24 hrs [...] site angiography,vascular ultrasound and IABP insertion in blood bank laboratory professional. Nuha Shen M.D. Electronically Signed by: Nuha [...] Scanlon MD CHEMISTRY ORDERABLES Performing Organization Address City/State/[facility] Co de Phone Number [facility] [place] [address] * POC, GLUCOSE (06/13/2024 7:41 AM EST) Glucometer, POC 126 65 - 199 mg/dL 06/13/2024 7:[address] [facility] Comment:Supplemental ranges: <140 mg/dL before meals <180 mg/dL all other times of the day. Blood CAPILLARY BLOOD / Unknown 06/13/2024 7:41 AM EST 06/13/2024 7:41 AM EST Ethel Carrillo MD POINT OF CARE TEST O NIKA Performing Organization Address [facility] Co de Phone Number [facility] [place] [address] * POC, GLUCOSE (06/13/2024 3:25 AM EST) Glucometer, POC 99 65 - 199 mg/dL 06/13/2024 3:[address] [facility] Comment:Supplemental ranges: <140 mg/dL before meals <180 mg/dL all other times of the day. Blood CAPILLARY BLOOD / Unknown 06/13/2024 3:25 AM EST 06/13/2024 3:25 AM EST Ethel Carrillo MD POINT OF CARE TEST O NIKA Performing Organization Address [facility] de Phone Number [facility] [place] [address] * Heparin (unfractionated) Level (06/13/2024 2:26 AM [...] HEMATOLOGY ORDERABLE S [facility] [place] [address] * (ABNORMAL) CBC (with Diff) (06/13/2024 2:26 AM EST) White Blood Cell 9.98(H) 4.00 - 9.50 x10(3)/mc L 06/13/2024 2:41 [address] [facility] Red Blood Cell 5.11 4.58 - 5.54 x10(6)/mc L 06/13/2024 2:41 AM [facility] Hemoglobin 15.3 13.7 - 16.5 g/dL 06/13/2024 2:41 AM [facility] Hematocrit 47.1 40.5 - 48.5 % 06/13/2024 2:41 AM [facility] Mean Cell Volume 92.2 82.9 - 93.1 fL 06/13/2024 2:41 AM [facility] Mean Cell Hemoglobin 29.9 27.5 - 32.1 pg 06/13/2024 2:41 AM [facility] Mean Cell Hemoglobin Concentration 32.5 32.0 - 35.7 g/dL 06/13/2024 2:41 AM [facility] Platelet 194 145 - 357 x10(3)/mc L 06/13/2024 2:41 AM [facility] Mean Platelet Volume 9.7 7.6 - 12.9 fL 06/13/2024 2:41 AM [facility] RDW Standard Deviation 47.5(H) 36.0 - 45.0 fL 06/13/2024 2:41 AM [facility] RDW coefficient of variation 13.8 11.4 - 13.8 % 06/13/2024 2:41 AM [facility] NRBC% auto 0.0 % 06/13/2024 2:41 AM [facility] NRBC Absolute <0.01 <0.01 x10(3)/mc L 06/13/2024 2:41 AM [facility] Neutrophil % 48.8 % 06/13/2024 2:41 AM [facility] Neutrophil Absolute (ANC) - Automated 4.87 1.70 - 6.10 x10(3)/mc L 06/13/2024 2:41 AM [facility] Lymph % 35.3 % 06/13/2024 2:41 AM [facility] Lymph Absolute 3.52(H) 0.90 - 3.20 x10(3)/mc L 06/13/2024 2:41 AM [facility] Monocyte % 10.1 % 06/13/2024 2:41 AM [facility] Monocyte Absolute 1.01(H) 0.30 - 0.90 x10(3)/mc L 06/13/2024 2:41 AM [facility] Eos % 4.4 % 06/13/2024 2:41 AM [facility] Eos Absolute 0.44(H) 0.00 - 0.40 x10(3)/mc L 06/13/2024 2:41 AM [facility] Basophil % 0.9 % 06/13/2024 2:41 AM [facility] Baso Absolute 0.09 0.00 - 0.10 x10(3)/mc L 06/13/2024 2:41 AM [facility] Immature Gran % 0.5 % 2:41 AM [facility] Immature Gran Absolute 0.05(H) 0.00 - 0.04 x10(3)/mc L 06/13/2024 2:41 AM [facility] Blood VENOUS BLOOD SPECIMEN / Unknown Venipuncture / Unknown 06/13/2024 2:26 AM EST 06/13/2024 2:32 AM EST Shahnaz Scanlon MD HEMATOLOGY ORDERABLE S [facility] [place] [address] * Magnesium (06/13/2024 2:26 AM EST) Magnesium 0.78 0.69 - 1.07 mMol/L 06/13/2024 2:[address] [facility] Blood VENOUS BLOOD SPECIMEN / Unknown Venipuncture / Unknown 06/13/2024 2:26 AM EST 06/13/2024 2:31 AM EST Shahnaz Scanlon MD CHEMISTRY ORDERABLES Performing Organization Address City/[facility]/ZIP Co de Phone Number [facility] [place] [address] * (ABNORMAL) Basic Metabolic Panel (06/13/2024 2:26 AM EST) Glucose 121 65 - 199 mg/dL 06/13/2024 2:[address] [facility] Comment:Glucose Concentratio n >=200 mg/dL plus symptoms is consistent with Diabetes Mellitus. Blood Urea Nitrogen 21(H) 10 - 20 mg/dL 06/13/2024 2:58 AM [facility] Creatinine 1.07 0.80 - 1.50 mg/dL 06/13/2024 2:[address] [facility] Sodium 136 135 - 145 mMol/L 06/13/2024 2:58 AM [facility] Potassium 3.9 3.5 - 5.0 mMol/L 06/13/2024 2:58 AM [facility] Chloride 99 98 - 107 mMol/L 06/13/2024 2:58 AM [facility] Carbon Dioxide 27 22 - 31 mMol/L 06/13/2024 2:58 AM [facility] Anion Gap 10 5 - 15 mMol/L 06/13/2024 2:[address] [facility] Calcium 9.7 8.5 - 10.5 mg/dL 06/13/2024 2:[address] [facility] Est Glomerular Filtration Rate - Male 76 mL/min/1. 73 m?? 06/13/2024 2:[address] [facility] Comment: [...] MD CHEMISTRY ORDERABLES [facility] [place] [address] * POC, GLUCOSE (06/12/2024 11:53 PM EST) [facility] Signature Glucometer, POC 141 65 - 199 mg/dL 06/12/2024 11:[address] [facility] Comment:Supplemental ranges: <140 mg/dL before meals <180 mg/dL all other times of the day. Blood CAPILLARY BLOOD / Unknown 06/12/2024 11:53 PM EST 06/12/2024 11:54 PM EST Ethel Carrillo MD POINT OF CARE TEST O RDERABLES [facility] [place] [address] * POC, GLUCOSE (06/12/2024 7:32 PM EST) Glucometer, POC 158 65 - 199 mg/dL 06/12/2024 7:[address] [facility] Comment:Supplemental ranges: <140 mg/dL before meals <180 mg/dL all other times of the day. Blood CAPILLARY BLOOD / Unknown 06/12/2024 7:32 PM EST 06/12/2024 7:32 PM EST Ethel Carrillo MD POINT OF CARE TEST O RDERABLES Performing Organization Address City/[facility]/ZIP Co de Phone Number [facility] [place] [address] * POC, GLUCOSE (06/12/2024 3:41 PM EST) Glucometer, POC 113 65 - 199 mg/dL 06/12/2024 3:[address] [facility] Comment:Supplemental ranges: <140 mg/dL before meals <180 mg/dL all other times of the day. Blood CAPILLARY BLOOD / Unknown 06/12/2024 3:41 PM EST 06/12/2024 3:41 PM EST Ethel Carrillo MD POINT OF CARE TEST O RDERABLES Performing Organization Address City/[facility]/ZIP Co de Phone Number [facility] [place] [address] * Potassium (06/12/2024 2:19 PM EST) Potassium 4.5 3.5 - 5.0 mMol/L 06/12/2024 2:[address] [facility] Blood VENOUS BLOOD SPECIMEN / Unknown Venipuncture / Unknown 06/12/2024 2:19 PM EST 06/12/2024 2:23 PM EST Shahnaz Scanlon MD CHEMISTRY ORDERABLES Performing Organization Address City/[facility]/ZIP Co de Phone Number [facility] [place] [address] * (ABNORMAL) POC, GLUCOSE (06/12/2024 11:21 AM EST) Glucometer, POC 207(H) 65 - 199 mg/dL 06/12/2024 11:[address] [facility] Comment:Supplemental ranges: <140 mg/dL before meals <180 mg/dL all other times of the day. Blood CAPILLARY BLOOD / Unknown 06/12/2024 11:21 AM EST 06/12/2024 11:22 AM EST Ethel Carrillo MD POINT OF CARE TEST O NIKA Performing Organization Address City/[facility]/ZIP Co de Phone Number [facility] [place] [address] * POC, GLUCOSE (06/12/2024 8:00 AM EST) Glucometer, POC 169 65 - 199 mg/dL 06/12/2024 8:[address] [facility] Comment:Supplemental ranges: <140 mg/dL before meals <180 mg/dL all other times of the day. Blood CAPILLARY BLOOD / Unknown 06/12/2024 8:00 AM EST 06/12/2024 8:01 AM EST Ethel Carrillo MD POINT OF CARE TEST O NIKA [facility] [place] [address] * POC, GLUCOSE (06/12/2024 4:25 AM EST) Glucometer, POC 132 65 - 199 mg/dL 06/12/2024 4:[address] [facility] Comment:Supplemental ranges: <140 mg/dL before meals <180 mg/dL all other times of the day. Blood CAPILLARY BLOOD / Unknown 06/12/2024 4:25 AM EST 06/12/2024 4:26 AM EST Ethel Carrillo MD POINT OF CARE TEST O RDERABLES Performing Organization Address [facility]/ZIP Co de Phone Number [facility] [place] [address] * Heparin (unfractionated) Level (06/12/2024 3:03 AM [...] 0.3-0.7 IU/mL Thrombosis Prevention (e.g. atrial fibrillation, lcarence-procedural bridging, mechanical valves): ? 0.3-0.7 IU/mL Acute Coronary Syndrome: ? 0.3-0.7 IU/mL Stroke Indications: ? 0.3-0.5 IU/mL Ultra-low intensity (select indications in cardiac surgery): ? 0.1-0.3 IU/mL Blood VENOUS BLOOD SPECIMEN / Unknown Venipuncture / Unknown 06/12/2024 3:03 AM EST 06/12/2024 3:30 AM EST Shahnaz Scanlon MD HEMATOLOGY ORDERABLE S Performing Organization Address [facility]/ZIP Co de Phone Number [facility] [place] [address] * (ABNORMAL) CBC (with Diff) (06/12/2024 3:03 AM EST) White Blood Cell 9.69(H) 4.00 - 9.50 x10(3)/mc L 06/12/2024 3:[address] [facility] Red Blood Cell 5.05 4.58 - 5.54 x10(6)/mc L 06/12/2024 3:[address] [facility] Hemoglobin 15.2 13.7 - 16.5 g/dL 06/12/2024 3:36 AM [facility] Hematocrit 46.6 40.5 - 48.5 % 06/12/2024 3:36 AM [facility] Mean Cell Volume 92.3 82.9 - 93.1 fL 06/12/2024 3:36 AM [facility] Mean Cell Hemoglobin 30.1 27.5 - 32.1 pg 06/12/2024 3:36 AM [facility] Mean Cell Hemoglobin Concentration 32.6 32.0 - 35.7 g/dL 06/12/2024 3:36 AM [facility] Platelet 194 145 - 357 x10(3)/mc L 06/12/2024 3:36 AM [facility] Mean Platelet Volume 10.1 7.6 - 12.9 fL 06/12/2024 3:36 AM [facility] RDW Standard Deviation 47.7(H) 36.0 - 45.0 fL 06/12/2024 3:36 AM [facility] RDW coefficient of variation 14.0(H) 11.4 - 13.8 % 06/12/2024 3:36 AM [facility] NRBC% auto 0.0 % 06/12/2024 3:36 AM [facility] NRBC Absolute <0.01 <0.01 x10(3)/mc L 06/12/2024 3:36 AM [facility] Neutrophil % 49.9 % 06/12/2024 3:36 AM [facility] Neutrophil Absolute (ANC) - Automated 4.82 1.70 - 6.10 x10(3)/mc L 06/12/2024 3:36 AM [facility] Lymph % 33.5 % 06/12/2024 3:36 AM [facility] Lymph Absolute 3.25(H) 0.90 - 3.20 x10(3)/mc L 06/12/2024 3:36 AM [facility] Monocyte % 11.1 % 06/12/2024 3:36 AM [facility] Monocyte Absolute 1.08(H) 0.30 - 0.90 x10(3)/mc L 06/12/2024 3:36 AM [facility] Eos % 4.1 % 06/12/2024 3:36 AM [facility] Eos Absolute 0.40 0.00 - 0.40 x10(3)/mc L 06/12/2024 3:36 AM [facility] Basophil % 0.8 % 06/12/2024 3:36 AM [facility] Baso Absolute 0.08 0.00 - 0.10 x10(3)/mc L 06/12/2024 3:36 AM [facility] Immature Gran % 0.6 % 3:36 AM [facility] Immature Gran Absolute 0.06(H) 0.00 - 0.04 x10(3)/mc L 06/12/2024 3:36 AM [facility] Blood VENOUS BLOOD SPECIMEN / Unknown Venipuncture / Unknown 06/12/2024 3:03 AM EST 06/12/2024 3:30 AM EST Shahnaz Scanlon MD HEMATOLOGY ORDERABLE S [facility] [place] [address] * Magnesium (06/12/2024 3:03 AM EST) Magnesium 0.79 0.69 - 1.07 mMol/L 06/12/2024 4:01 AM [facility] Blood VENOUS BLOOD SPECIMEN / Unknown Venipuncture / Unknown 06/12/2024 3:03 AM EST 06/12/2024 3:30 AM EST Shahnaz Scanlon MD CHEMISTRY ORDERABLES [facility] [place] [address] * (ABNORMAL) Basic Metabolic Panel (06/12/2024 3:03 AM EST) Glucose 132 65 - 199 mg/dL 06/12/2024 4:01 AM [facility] Comment:Glucose Concentratio n >=200 mg/dL plus symptoms is consistent with Diabetes Mellitus. Blood Urea Nitrogen 23(H) 10 - 20 mg/dL 06/12/2024 4:01 AM [facility] Creatinine 1.15 0.80 - 1.50 mg/dL 06/12/2024 4:01 AM [facility] Sodium 138 135 - 145 mMol/L 06/12/2024 4:01 AM [facility] Potassium 3.8 3.5 - 5.0 mMol/L 06/12/2024 4:01 AM [facility] Chloride 98 98 - 107 mMol/L 06/12/2024 4:01 AM [facility] Carbon Dioxide 29 22 - 31 mMol/L 06/12/2024 4:01 AM [facility] Anion Gap 11 5 - 15 mMol/L 06/12/2024 4:01 AM [facility] Calcium 9.5 8.5 - 10.5 mg/dL 06/12/2024 4:01 AM [facility] Est Glomerular Filtration Rate - Male 70 mL/min/1. 73 m?? 06/12/2024 4:01 AM [facility] Comment: [...] Scanlon MD CHEMISTRY ORDERABLES Performing Organization Address [facility]/ZIP Co de Phone Number [facility] [place] [address] * POC, GLUCOSE (06/11/2024 11:56 PM EST) Glucometer, POC 135 65 - 199 mg/dL 06/11/2024 11:[address] [facility] Comment:Supplemental ranges: <140 mg/dL before meals <180 mg/dL all other times of the day. Blood CAPILLARY BLOOD / Unknown 06/11/2024 11:56 PM EST 06/11/2024 11:56 PM EST Ethel Carrillo MD POINT OF CARE TEST Abimael MAHER Performing Organization Address [facility] Co de Phone Number [facility] [place] [address] * (ABNORMAL) POC, GLUCOSE (06/11/2024 8:25 PM EST) Glucometer, POC 210(H) 65 - 199 mg/dL 06/11/2024 8:[address] [facility] Comment:Supplemental ranges: <140 mg/dL before meals <180 mg/dL all other times of the day. Blood CAPILLARY BLOOD / Unknown 06/11/2024 8:25 PM EST 06/11/2024 8:26 PM EST Ethel Carrillo MD POINT OF CARE TEST O NIKA Performing Organization Address City/[facility] Co de Phone Number [facility] [place] [address] * POC, GLUCOSE (06/11/2024 4:24 PM EST) Glucometer, POC 81 65 - 199 mg/dL 06/11/2024 4:[address] [facility] Comment:Supplemental ranges: <140 mg/dL before meals <180 mg/dL all other times of the day. Blood CAPILLARY BLOOD / Unknown 06/11/2024 4:24 PM EST 06/11/2024 4:25 PM EST Ethel Carrillo MD POINT OF CARE TEST O NIKA Performing Organization Address City/[facility]/ZIP Co de Phone Number [facility] [place] [address] * (ABNORMAL) POC, GLUCOSE (06/11/2024 11:08 AM EST) Glucometer, POC 233(H) 65 - 199 mg/dL 06/11/2024 11:[address] [facility] Comment:Supplemental ranges: <140 mg/dL before meals <180 mg/dL all other times of the day. Blood CAPILLARY BLOOD / Unknown 06/11/2024 11:08 AM EST 06/11/2024 11:08 AM EST Ethel Carrillo MD POINT OF CARE TEST O NIKA Performing Organization Address [facility] Co de Phone Number [facility] [place] [address] * POC, GLUCOSE (06/11/2024 7:48 AM EST) Glucometer, POC 184 65 - 199 mg/dL 06/11/2024 7:[address] [facility] Comment:Supplemental ranges: <140 mg/dL before meals <180 mg/dL all other times of the day. Blood CAPILLARY BLOOD / Unknown 06/11/2024 7:48 AM EST 06/11/2024 7:49 AM EST Melida Valdes MD POINT OF CARE TEST O NIKA Performing Organization Address City/[facility]/ZIP Co de Phone Number [facility] [place] [address] * Heparin (unfractionated) Level (06/11/2024 5:31 AM [...] HEMATOLOGY ORDERABLE S [facility] [place] [address] * POC, GLUCOSE (06/11/2024 3:57 AM EST) Glucometer, POC 132 65 - 199 mg/dL 06/11/2024 3:[address] [facility] Comment:Supplemental ranges: <140 mg/dL before meals <180 mg/dL all other times of the day. Blood CAPILLARY BLOOD / Unknown 06/11/2024 3:57 AM EST 06/11/2024 3:58 AM EST Melida Valdes MD POINT OF CARE TEST O RDERABLES [facility] [place] [address] * (ABNORMAL) CBC (with Diff) (06/11/2024 2:13 AM EST) White Blood Cell 9.91(H) 4.00 - 9.50 x10(3)/mc L 06/11/2024 2:26 [address] [facility] Red Blood Cell 5.13 4.58 - 5.54 x10(6)/mc L 06/11/2024 2:26 AM [facility] Hemoglobin 15.3 13.7 - 16.5 g/dL 06/11/2024 2:26 AM [facility] Hematocrit 47.5 40.5 - 48.5 % 06/11/2024 2:26 AM [facility] Mean Cell Volume 92.6 82.9 - 93.1 fL 06/11/2024 2:26 AM [facility] Mean Cell Hemoglobin 29.8 27.5 - 32.1 pg 06/11/2024 2:26 AM [facility] Mean Cell Hemoglobin Concentration 32.2 32.0 - 35.7 g/dL 06/11/2024 2:26 AM [facility] Platelet 184 145 - 357 x10(3)/mc L 06/11/2024 2:26 AM [facility] Mean Platelet Volume 9.7 7.6 - 12.9 fL 06/11/2024 2:26 AM [facility] RDW Standard Deviation 48.0(H) 36.0 - 45.0 fL 06/11/2024 2:26 AM [facility] RDW coefficient of variation 14.0(H) 11.4 - 13.8 % 06/11/2024 2:26 AM [facility] NRBC% auto 0.0 % 06/11/2024 2:26 AM [facility] NRBC Absolute <0.01 <0.01 x10(3)/mc L 06/11/2024 2:26 AM [facility] Neutrophil % 50.3 % 06/11/2024 2:26 AM [facility] Neutrophil Absolute (ANC) - Automated 4.98 1.70 - 6.10 x10(3)/mc L 06/11/2024 2:26 AM [facility] Lymph % 33.5 % 06/11/2024 2:26 AM [facility]. [facility] Lymph Absolute 3.32(H) 0.90 - 3.20 x10(3)/mc L 06/11/2024 2:26 AM [facility] Monocyte % 10.9 % 06/11/2024 2:26 AM [facility] Monocyte Absolute 1.08(H) 0.30 - 0.90 x10(3)/mc L 06/11/2024 2:26 AM [facility] Eos % 4.1 % 06/11/2024 2:26 AM [facility] Eos Absolute 0.41(H) 0.00 - 0.40 x10(3)/mc L 06/11/2024 2:[address] [facility] Basophil % 0.7 % 06/11/2024 2:26 AM [facility] Baso Absolute 0.07 0.00 - 0.10 x10(3)/mc L 06/11/2024 2:26 AM [facility] Immature Gran % 0.5 % 2:26 AM [facility] Immature Gran Absolute 0.05(H) 0.00 - 0.04 x10(3)/mc L 06/11/2024 2:26 AM [facility] Blood VENOUS BLOOD SPECIMEN / Unknown Venipuncture / Unknown 06/11/2024 2:13 AM EST 06/11/2024 2:19 AM EST Shahnaz Scanlon MD HEMATOLOGY ORDERABLE S [facility] [place] [address] * Magnesium (06/11/2024 2:13 AM EST) Magnesium 0.83 0.69 - 1.07 mMol/L 06/11/2024 2:51 AM [facility] Blood VENOUS BLOOD SPECIMEN / Unknown Venipuncture / Unknown 06/11/2024 2:13 AM EST 06/11/2024 2:19 AM EST Shahnaz Scanlon MD CHEMISTRY ORDERABLES [facility] [place] [address] * (ABNORMAL) Basic Metabolic Panel (06/11/2024 2:13 AM EST) Pathologist [facility] Glucose 148 65 - 199 mg/dL 06/11/2024 2:[address] [facility] Comment:Glucose Concentratio n >=200 mg/dL plus symptoms is consistent with Diabetes Mellitus. Blood Urea Nitrogen 24(H) 10 - 20 mg/dL 06/11/2024 2:51 AM [facility] Creatinine 1.06 0.80 - 1.50 mg/dL 06/11/2024 2:[address] [facility] Sodium 134(L) 135 - 145 mMol/L 06/11/2024 2:51 AM [facility] Potassium 4.1 3.5 - 5.0 mMol/L 06/11/2024 2:51 AM [facility] Chloride 96(L) 98 - 107 mMol/L 06/11/2024 2:51 AM [facility] Carbon Dioxide 28 22 - 31 mMol/L 06/11/2024 2:[address] [facility] Anion Gap 10 5 - 15 mMol/L 06/11/2024 2:51 AM [facility] Calcium 9.4 8.5 - 10.5 mg/dL 06/11/2024 2:51 AM [facility] Est [...] Scanlon MD CHEMISTRY ORDERABLES Performing Organization Address City/[facility]/ZIP Co de Phone Number [facility] [place] [address] * POC, GLUCOSE (06/11/2024 12:50 AM EST) Glucometer, POC 144 65 - 199 mg/dL 06/11/2024 12:[address] [facility] Comment:Supplemental ranges: <140 mg/dL before meals <180 mg/dL all other times of the day. Blood CAPILLARY BLOOD / Unknown 06/11/2024 12:50 AM EST 06/11/2024 12:51 AM EST Melida Valdes MD POINT OF CARE TEST O RDERABLES [facility] [place] [address] * (ABNORMAL) POC, GLUCOSE (06/10/2024 7:22 PM EST) Glucometer, POC 236(H) 65 - 199 mg/dL 06/10/2024 7:[address] [facility] Comment:Supplemental ranges: <140 mg/dL before meals <180 mg/dL all other times of the day. Blood CAPILLARY BLOOD / Unknown 06/10/2024 7:22 PM EST 06/10/2024 7:22 PM EST Melida Valdes MD POINT OF CARE TEST O RDERABLES [facility] [place] [address] * (ABNORMAL) Blood Gas, Venous (06/10/2024 5:42 PM EST) pH, Venous 7.34 7.32 - 7.42 06/10/2024 5:[address] [facility] PCO2, Venous 52 38 - 58 mmHg 06/10/2024 5:50 PM [facility] PO2, Venous 24 16 - 65 mmHg 06/10/2024 5:[address] [facility] Bicarbonate, Venous 27.4 22 - 31 mmol/L 06/10/2024 5:50 PM [facility] Base Excess, Venous 1.7(L) 1.9 - 4.5 mmol/L 06/10/2024 5:50 PM [facility] Hemoglobin, Venous 16.8(H) 13.7 - 16.5 g/dL 06/10/2024 5:50 PM [facility] Oxyhemoglobin, Venous 39.0 % 06/10/2024 5:50 PM [facility] Carboxyhemoglobin , Venous 0.3 % 06/10/2024 5:50 PM [facility] Comment: Nonsmokers: 0.5-1.5% COHB ?? Smokers: Variable ??but usually less than 10% ?? Toxic: 20-30% COHB ?? Lethal: Greater than 60% COHB Methemoglobin, Venous 0.5 <=1.5 % 06/10/2024 5:[address] [facility] Sodium, Venous 137 135 - 145 mmol/L 06/10/2024 5:[address] [facility] Chloride, Venous 96(L) 98 - 107 mmol/L 06/10/2024 5:[address] [facility] Potassium, Venous 4.6 3.5 - 5.0 mmol/L 06/10/2024 5:50 PM [facility] Ionized Calcium, Venous 1.23 1.15 - 1.33 mmol/L 06/10/2024 5:[address] [facility] Glucose, Venous 114 65 - 199 mg/dL 06/10/2024 5:[address] [facility] Comment:Glucose Concentratio n >=200 mg/dL plus symptoms is consistent with Diabetes Mellitus. Lactate, Venous 1.1 0.5 - 2.2 mmol/L 06/10/2024 5:50 PM [facility] Blood Gas Source Venous 06/10/20 5:50 PM [facility] Blood VENOUS BLOOD SPECIMEN / Unknown Blood Gas Venous / Unknown 06/10/2024 5:42 PM EST 06/10/2024 5:47 PM EST Melida Valdes MD CHEMISTRY ORDERABLES [facility] [place] [address] * POC, GLUCOSE (06/10/2024 5:35 PM EST) [facility] Signature Glucometer, POC 123 65 - 199 mg/dL 06/10/2024 5:[address] [facility] Comment:Supplemental ranges: <140 mg/dL before meals <180 mg/dL all other times of the day. Blood CAPILLARY BLOOD / Unknown 06/10/2024 5:35 PM EST 06/10/2024 5:35 PM EST Melida Valdes MD POINT OF CARE TEST O RDERABLES [facility] [place] [address] * (ABNORMAL) POC, GLUCOSE (06/10/2024 11:25 AM EST) Glucometer, POC 216(H) 65 - 199 mg/dL 06/10/2024 11:[address] [facility] Comment:Supplemental ranges: <140 mg/dL before meals <180 mg/dL all other times of the day. Blood CAPILLARY BLOOD / Unknown 06/10/2024 11:25 AM EST 06/10/2024 11:25 AM EST Melida Valdes MD POINT OF CARE TEST O NIKA Performing Organization Address City/[facility]/ZIP Co de Phone Number [facility] [place] [address] * (ABNORMAL) POC, GLUCOSE (06/10/2024 7:46 AM EST) Glucometer, POC 206(H) 65 - 199 mg/dL 06/10/2024 7:[address] [facility] Comment:Supplemental ranges: <140 mg/dL before meals <180 mg/dL all other times of the day. Blood CAPILLARY BLOOD / Unknown 06/10/2024 7:46 AM EST 06/10/2024 7:46 AM EST Melida Valdes MD POINT OF CARE TEST O NIKA Performing Organization Address City/[facility]/ZIP Co de Phone Number [facility] [place] [address] * POC, GLUCOSE (06/10/2024 4:23 AM EST) Glucometer, POC 154 65 - 199 mg/dL 06/10/2024 4:[address] [facility] Comment:Supplemental ranges: <140 mg/dL before meals <180 mg/dL all other times of the day. Blood CAPILLARY BLOOD / Unknown 06/10/2024 4:23 AM EST 06/10/2024 4:24 AM EST Melida Valdes MD POINT OF CARE TEST O NIKA [facility] [place] [address] * (ABNORMAL) CBC (with Diff) (06/10/2024 1:55 AM EST) White Blood Cell 9.00 4.00 - 9.50 x10(3)/mc L 06/10/2024 2:14 AM [facility] Red Blood Cell 5.03 4.58 - 5.54 x10(6)/mc L 06/10/2024 2:14 AM [facility] Hemoglobin 14.9 13.7 - 16.5 g/dL 06/10/2024 2:14 AM [facility] Hematocrit 46.4 40.5 - 48.5 % 06/10/2024 2:14 AM [facility] Mean Cell Volume 92.2 82.9 - 93.1 fL 06/10/2024 2:14 AM [facility] Mean Cell Hemoglobin 29.6 27.5 - 32.1 pg 06/10/2024 2:14 AM [facility] Mean Cell Hemoglobin Concentration 32.1 32.0 - 35.7 g/dL 06/10/2024 2:14 AM [facility] Platelet 191 145 - 357 x10(3)/mc L 06/10/2024 2:14 AM [facility] Mean Platelet Volume 9.7 7.6 - 12.9 fL 06/10/2024 2:14 AM [facility] RDW Standard Deviation 47.4(H) 36.0 - 45.0 fL 06/10/2024 2:14 AM [facility] RDW coefficient of variation 14.1(H) 11.4 - 13.8 % 06/10/2024 2:14 AM [facility] NRBC% auto 0.0 % 06/10/2024 2:14 AM [facility] NRBC Absolute <0.01 <0.01 x10(3)/mc L 06/10/2024 2:14 AM [facility] Neutrophil % 48.7 % 06/10/2024 2:14 AM [facility] Neutrophil Absolute (ANC) - Automated 4.39 1.70 - 6.10 x10(3)/mc L 06/10/2024 2:14 AM [facility] Lymph % 34.9 % 06/10/2024 2:14 AM [facility] Lymph Absolute 3.14 0.90 - 3.20 x10(3)/mc L 06/10/2024 2:14 AM [facility] Monocyte % 11.2 % 06/10/2024 2:14 AM [facility] Monocyte Absolute 1.01(H) 0.30 - 0.90 x10(3)/mc L 06/10/2024 2:14 AM [facility] Eos % 3.6 % 06/10/2024 2:14 AM [facility] Eos Absolute 0.32 0.00 - 0.40 x10(3)/mc L 06/10/2024 2:14 AM [facility] Basophil % 1.0 % 06/10/2024 2:14 AM [facility] Baso Absolute 0.09 0.00 - 0.10 x10(3)/mc L 06/10/2024 2:14 AM [facility] Immature Gran % 0.6 % 2:14 AM [facility] Immature Gran Absolute 0.05(H) 0.00 - 0.04 x10(3)/mc L 06/10/2024 2:14 AM [facility] Blood VENOUS BLOOD SPECIMEN / Unknown Venipuncture / Unknown 06/10/2024 1:55 AM EST 06/10/2024 2:05 AM EST Shahnaz Scanlon MD HEMATOLOGY ORDERABLE S [facility] [place] [address] * Magnesium (06/10/2024 1:55 AM EST) Magnesium 0.83 0.69 - 1.07 mMol/L 06/10/2024 2:37 AM [facility] Blood VENOUS BLOOD SPECIMEN / Unknown Venipuncture / Unknown 06/10/2024 1:55 AM EST 06/10/2024 2:05 AM EST Shahnaz Scanlon MD CHEMISTRY ORDERABLES [facility] [address] [place] [address] * (ABNORMAL) Basic Metabolic Panel (06/10/2024 1:55 AM EST) Pathologist [facility] Glucose 140 65 - 199 mg/dL 06/10/2024 2:37 AM [facility] Comment:Glucose Concentratio n >=200 mg/dL plus symptoms is consistent with Diabetes Mellitus. Blood Urea Nitrogen 24(H) 10 - 20 mg/dL 06/10/2024 2:37 AM [facility] Creatinine 1.06 0.80 - 1.50 mg/dL 06/10/2024 2:37 AM [facility] Sodium 138 135 - 145 mMol/L 06/10/2024 2:37 AM [facility] Potassium 4.1 3.5 - 5.0 mMol/L 06/10/2024 2:37 AM [facility] Chloride 100 98 - 107 mMol/L 06/10/2024 2:37 AM [facility] Carbon Dioxide 25 22 - 31 mMol/L 06/10/2024 2:37 AM [facility] Anion Gap 13 5 - 15 mMol/L 06/10/2024 2:37 AM [facility] Calcium 9.5 8.5 - 10.5 mg/dL 06/10/2024 2:37 AM [facility] Est Glomerular Filtration Rate - Male 77 mL/min/1. 73 m?? 06/10/2024 2:[address] [facility] Comment: [...] MD CHEMISTRY ORDERABLES [facility] [place] [address] * Heparin (unfractionated) Level (06/10/2024 1:54 AM [...] MD HEMATOLOGY ORDERABLE S Performing Organization Address [facility]/ZIP Co de Phone Number [facility] [place] [place] [address] * POC, GLUCOSE (06/10/2024 12:05 AM EST) Glucometer, POC 125 65 - 199 mg/dL 06/10/2024 12:[address] [facility] Comment:Supplemental ranges: <140 mg/dL before meals <180 mg/dL all other times of the day. Blood CAPILLARY BLOOD / Unknown 06/10/2024 12:05 AM EST 06/10/2024 12:05 AM EST Melida Valdes MD POINT OF CARE TEST O NIKA Performing Organization Address [facility] Co de Phone Number [facility] [place] [address] * POC, GLUCOSE (06/09/2024 8:36 PM EST) Glucometer, POC 197 65 - 199 mg/dL 06/09/2024 8:[address] [facility] Comment:Supplemental ranges: <140 mg/dL before meals <180 mg/dL all other times of the day. Blood CAPILLARY BLOOD / Unknown 06/09/2024 8:36 PM EST 06/09/2024 8:36 PM EST Melida Valdes MD POINT OF CARE TEST O NIKA Performing Organization Address City/[facility]/ZIP Co de Phone Number [facility] [place] [address] * POC, GLUCOSE (06/09/2024 5:27 PM EST) Glucometer, POC 174 65 - 199 mg/dL 06/09/2024 5:[address] [facility] Comment:Supplemental ranges: <140 mg/dL before meals <180 mg/dL all other times of the day. Blood CAPILLARY BLOOD / Unknown 06/09/2024 5:27 PM EST 06/09/2024 5:28 PM EST Melida Valdes MD POINT OF CARE TEST O RDBECKIE Performing Organization Address City/[facility]/ZIP Co de Phone Number [facility] [place] [address] * (ABNORMAL) POC, GLUCOSE (06/09/2024 11:52 AM EST) Glucometer, POC 211(H) 65 - 199 mg/dL 06/09/2024 11:[address] [facility] Comment:Supplemental ranges: <140 mg/dL before meals <180 mg/dL all other times of the day. Blood CAPILLARY BLOOD / Unknown 06/09/2024 11:52 AM EST 06/09/2024 11:52 AM EST Melida Valdes MD POINT OF CARE TEST O NIKA Performing Organization Address City/[facility]/ZIP Co de Phone Number [facility] [place] [address] * Potassium (06/09/2024 8:25 AM EST) Potassium 4.6 3.5 - 5.0 mMol/L 06/09/2024 10:[address] [facility] Blood VENOUS BLOOD SPECIMEN / Unknown Venipuncture / Unknown 06/09/2024 8:25 AM EST 06/09/2024 8:42 AM EST Shahnaz Scanlon MD CHEMISTRY ORDERABLES Performing Organization Address City/[facility]/ZIP Co de Phone Number [facility] [place] [address] * (ABNORMAL) POC, GLUCOSE (06/09/2024 8:10 AM EST) Glucometer, POC 209(H) 65 - 199 mg/dL 06/09/2024 8:[address] [facility] Comment:Supplemental ranges: <140 mg/dL before meals <180 mg/dL all other times of the day. Blood CAPILLARY BLOOD / Unknown 06/09/2024 8:10 AM EST 06/09/2024 8:11 AM EST Melida Valdes MD POINT OF CARE TEST O NIKA Performing Organization Address [facility] de Phone Number [facility] [place] [address] * POC, GLUCOSE (06/09/2024 4:40 AM EST) Glucometer, POC 131 65 - 199 mg/dL 06/09/2024 4:[address] [facility] Comment:Supplemental ranges: <140 mg/dL before meals <180 mg/dL all other times of the day. Blood CAPILLARY BLOOD / Unknown 06/09/2024 4:40 AM EST 06/09/2024 4:41 AM EST Melida Valdes MD POINT OF CARE TEST Abimael MAHER Performing Organization Address [facility] de Phone Number [facility] [place] [address] * Heparin (unfractionated) Level (06/09/2024 2:12 AM [...] HEMATOLOGY ORDERABLE S [facility] [place] [address] * (ABNORMAL) CBC (with Diff) (06/09/2024 2:12 AM EST) White Blood Cell 9.80(H) 4.00 - 9.50 x10(3)/mc L 06/09/2024 2:44 AM [facility] Red Blood Cell 5.18 4.58 - 5.54 x10(6)/mc L 06/09/2024 2:44 AM [facility] Hemoglobin 15.5 13.7 - 16.5 g/dL 06/09/2024 2:44 AM [facility] Hematocrit 47.4 40.5 - 48.5 % 06/09/2024 2:44 AM [facility] Mean Cell Volume 91.5 82.9 - 93.1 fL 06/09/2024 2:44 AM [facility] Mean Cell Hemoglobin 29.9 27.5 - 32.1 pg 06/09/2024 2:44 AM [facility] Mean Cell Hemoglobin Concentration 32.7 32.0 - 35.7 g/dL 06/09/2024 2:44 AM [facility] Platelet 205 145 - 357 x10(3)/mc L 06/09/2024 2:44 AM [facility] Mean Platelet Volume 9.7 7.6 - 12.9 fL 06/09/2024 2:44 AM [facility] RDW Standard Deviation 47.7(H) 36.0 - 45.0 fL 06/09/2024 2:44 AM [facility] RDW coefficient of variation 14.1(H) 11.4 - 13.8 % 06/09/2024 2:44 AM [facility] NRBC% auto 0.0 % 06/09/2024 2:44 AM [facility] NRBC Absolute <0.01 <0.01 x10(3)/mc L 06/09/2024 2:44 AM [facility] Neutrophil % 53.0 % 06/09/2024 2:44 AM [facility] Neutrophil Absolute (ANC) - Automated 5.19 1.70 - 6.10 x10(3)/mc L 06/09/2024 2:44 AM [facility] Lymph % 31.6 % 06/09/2024 2:44 AM [facility] Lymph Absolute 3.10 0.90 - 3.20 x10(3)/mc L 06/09/2024 2:44 AM [facility] Monocyte % 11.0 % 06/09/2024 2:44 AM [facility] Monocyte Absolute 1.08(H) 0.30 - 0.90 x10(3)/mc L 06/09/2024 2:44 AM [facility] Eos % 2.9 % 06/09/2024 2:44 AM [facility] Eos Absolute 0.28 0.00 - 0.40 x10(3)/mc L 06/09/2024 2:44 AM [facility] Basophil % 0.9 % 06/09/2024 2:44 AM [facility] Baso Absolute 0.09 0.00 - 0.10 x10(3)/mc L 06/09/2024 2:44 AM [facility] Immature Gran % 0.6 % 2:44 AM [facility] Immature Gran Absolute 0.06(H) 0.00 - 0.04 x10(3)/mc L 06/09/2024 2:[address] [facility] Blood VENOUS BLOOD SPECIMEN / Unknown Venipuncture / Unknown 06/09/2024 2:12 AM EST 06/09/2024 2:21 AM EST Shahnaz Scanlon MD HEMATOLOGY ORDERABLE S Performing Organization Address City/[facility]/ZIP Co de Phone Number [facility] [place] [address] * Magnesium (06/09/2024 2:12 AM EST) Magnesium 0.83 0.69 - 1.07 mMol/L 06/09/2024 2:52 AM [facility] Blood VENOUS BLOOD SPECIMEN / Unknown Venipuncture / Unknown 06/09/2024 2:12 AM EST 06/09/2024 2:22 AM EST Shahnaz Scanlon MD CHEMISTRY ORDERABLES [facility] [place] [address] * (ABNORMAL) Basic Metabolic Panel (06/09/2024 2:12 AM EST) Glucose 147 65 - 199 mg/dL 06/09/2024 2:52 AM [facility] Comment:Glucose Concentratio n >=200 mg/dL plus symptoms is consistent with Diabetes Mellitus. Blood Urea Nitrogen 24(H) 10 - 20 mg/dL 06/09/2024 2:52 AM [facility] Creatinine 1.11 0.80 - 1.50 mg/dL 06/09/2024 2:52 AM [facility] Sodium 136 135 - 145 mMol/L 06/09/2024 2:52 AM [facility] Potassium 3.9 3.5 - 5.0 mMol/L 06/09/2024 2:52 AM [facility] Chloride 98 98 - 107 mMol/L 06/09/2024 2:52 AM [facility] Carbon Dioxide 27 22 - 31 mMol/L 06/09/2024 2:52 AM [facility] Anion Gap 11 5 - 15 mMol/L 06/09/2024 2:52 AM [facility] Calcium 9.7 8.5 - 10.5 mg/dL 06/09/2024 2:52 AM [facility] Est Glomerular Filtration Rate - Male 73 mL/min/1. 73 m?? 06/09/2024 2:52 AM [facility] Comment: [...] MD CHEMISTRY ORDERABLES [facility] [place] [address] * POC, GLUCOSE (06/09/2024 12:34 AM EST) Glucometer, POC 186 65 - 199 mg/dL 06/09/2024 12:[address] [facility] Comment:Supplemental ranges: <140 mg/dL before meals <180 mg/dL all other times of the day. Blood CAPILLARY BLOOD / Unknown 06/09/2024 12:34 AM EST 06/09/2024 12:34 AM EST Melida Valdes MD POINT OF CARE TEST O RDERABLES Performing Organization Address [facility] Co de Phone Number [facility] [place] [address] * POC, GLUCOSE (06/08/2024 8:27 PM EST) Glucometer, POC 176 65 - 199 mg/dL 06/08/2024 8:[address] [facility] Comment:Supplemental ranges: <140 mg/dL before meals <180 mg/dL all other times of the day. Blood CAPILLARY BLOOD / Unknown 06/08/2024 8:27 PM EST 06/08/2024 8:28 PM EST Melida Valdes MD POINT OF CARE TEST O RDERABLES Performing Organization Address [facility] de Phone Number [facility] [place] [address] * POC, GLUCOSE (06/08/2024 4:16 PM EST) Glucometer, POC 159 65 - 199 mg/dL 06/08/2024 4:[address] [facility] Comment:Supplemental ranges: <140 mg/dL before meals <180 mg/dL all other times of the day. Blood CAPILLARY BLOOD / Unknown 06/08/2024 4:16 PM EST 06/08/2024 4:16 PM EST Melida Valdes MD POINT OF CARE TEST O RDERABLES Performing Organization Address [facility] Co de Phone Number [facility] [place] [address] * (ABNORMAL) POC, GLUCOSE (06/08/2024 12:35 PM EST) Glucometer, POC 226(H) 65 - 199 mg/dL 06/08/2024 12:[address] [facility] Comment:Supplemental ranges: <140 mg/dL before meals <180 mg/dL all other times of the day. Blood CAPILLARY BLOOD / Unknown 06/08/2024 12:35 PM EST 06/08/2024 12:35 PM EST Melida Valdes MD POINT OF CARE TEST O NIKA Performing Organization Address [facility] Co de Phone Number [facility] [place] [address] * POC, GLUCOSE (06/08/2024 8:10 AM EST) Glucometer, POC 190 65 - 199 mg/dL 06/08/2024 8:[address] [facility] Comment:Supplemental ranges: <140 mg/dL before meals <180 mg/dL all other times of the day. Blood CAPILLARY BLOOD / Unknown 06/08/2024 8:10 AM EST 06/08/2024 8:14 AM EST Melida Valdes MD POINT OF CARE TEST O NIKA Performing Organization Address [facility] Phone Number [facility] [place] [place] [address] * POC, GLUCOSE (06/08/2024 4:09 AM EST) Glucometer, POC 151 65 - 199 mg/dL 06/08/2024 4:[address] [facility] Comment:Supplemental ranges: <140 mg/dL before meals <180 mg/dL all other times of the day. Blood CAPILLARY BLOOD / Unknown 06/08/2024 4:09 AM EST 06/08/2024 4:10 AM EST Melida Valdes MD POINT OF CARE TEST O NIAK Performing Organization Address [facility] Co de Phone Number [facility] [place] [address] * Heparin (unfractionated) Level (06/08/2024 3:21 AM [...] MD HEMATOLOGY ORDERABLE S Performing Organization Address City/State/[facility] Co de Phone Number [facility] [place] [address] * (ABNORMAL) CBC (with Diff) (06/08/2024 3:21 AM EST) White Blood Cell 9.92(H) 4.00 - 9.50 x10(3)/mc L 06/08/2024 3:[address] [facility] Red Blood Cell 5.09 4.58 - 5.54 x10(6)/mc L 06/08/2024 3:[address] [facility] Hemoglobin 15.1 13.7 - 16.5 g/dL 06/08/2024 3:[address] [facility] Hematocrit 46.7 40.5 - 48.5 % 06/08/2024 3:34 AM [facility] Mean Cell Volume 91.7 82.9 - 93.1 fL 06/08/2024 3:34 AM [facility] Mean Cell Hemoglobin 29.7 27.5 - 32.1 pg 06/08/2024 3:34 AM [facility] Mean Cell Hemoglobin Concentration 32.3 32.0 - 35.7 g/dL 06/08/2024 3:34 AM [facility] Platelet 203 145 - 357 x10(3)/mc L 06/08/2024 3:34 AM [facility] Mean Platelet Volume 9.4 7.6 - 12.9 fL 06/08/2024 3:34 AM [facility] RDW Standard Deviation 46.9(H) 36.0 - 45.0 fL 06/08/2024 3:34 AM [facility] RDW coefficient of variation 13.8 11.4 - 13.8 % 06/08/2024 3:34 AM [facility] NRBC% auto 0.0 % 06/08/2024 3:34 AM [facility] NRBC Absolute <0.01 <0.01 x10(3)/mc L 06/08/2024 3:34 AM [facility] Neutrophil % 56.8 % 06/08/2024 3:34 AM [facility] Neutrophil Absolute (ANC) - Automated 5.63 1.70 - 6.10 x10(3)/mc L 06/08/2024 3:34 AM [facility] Lymph % 27.3 % 06/08/2024 3:34 AM [facility] Lymph Absolute 2.71 0.90 - 3.20 x10(3)/mc L 06/08/2024 3:34 AM [facility] Monocyte % 11.2 % 06/08/2024 3:34 AM [facility] Monocyte Absolute 1.11(H) 0.30 - 0.90 x10(3)/mc L 06/08/2024 3:34 AM [facility] Eos % 3.4 % 06/08/2024 3:34 AM [facility] Eos Absolute 0.34 0.00 - 0.40 x10(3)/mc L 06/08/2024 3:34 AM [facility] Basophil % 0.8 % 06/08/2024 3:34 AM [facility] Baso Absolute 0.08 0.00 - 0.10 x10(3)/mc L 06/08/2024 3:[address] [facility] Immature Gran % 0.5 % 3:34 AM [facility] Immature Gran Absolute 0.05(H) 0.00 - 0.04 x10(3)/mc L 06/08/2024 3:34 AM [facility] Blood VENOUS BLOOD SPECIMEN / Unknown Venipuncture / Unknown 06/08/2024 3:21 AM EST 06/08/2024 3:27 AM EST Shahnaz Scanlon MD HEMATOLOGY ORDERABLE S Performing Organization Address City/[facility]/ZIP Co de Phone Number [facility] [address] * Magnesium (06/08/2024 3:21 AM EST) Magnesium 0.84 0.69 - 1.07 mMol/L 06/08/2024 3:59 AM [facility] Blood VENOUS BLOOD SPECIMEN / Unknown Venipuncture / Unknown 06/08/2024 3:21 AM EST 06/08/2024 3:27 AM EST Shahnaz Scanlon MD CHEMISTRY ORDERABLES [facility] [place] [address] * (ABNORMAL) Basic Metabolic Panel (06/08/2024 3:21 AM EST) Glucose 173 65 - 199 mg/dL 06/08/2024 3:59 AM [facility] Comment:Glucose Concentratio n >=200 mg/dL plus symptoms is consistent with Diabetes Mellitus. Blood Urea Nitrogen 25(H) 10 - 20 mg/dL 06/08/2024 3:59 AM [facility] Creatinine 1.09 0.80 - 1.50 mg/dL 06/08/2024 3:59 AM [facility] Sodium 135 135 - 145 mMol/L 06/08/2024 3:59 AM [facility] Potassium 4.2 3.5 - 5.0 mMol/L 06/08/2024 3:59 AM [facility] Chloride 98 98 - 107 mMol/L 06/08/2024 3:59 AM [facility] Carbon Dioxide 25 22 - 31 mMol/L 06/08/2024 3:59 AM [facility] Anion Gap 12 5 - 15 mMol/L 06/08/2024 3:59 AM [facility] Calcium 9.4 8.5 - 10.5 mg/dL 06/08/2024 3:59 AM [facility] Est Glomerular Filtration Rate - Male 74 mL/min/1. 73 m?? 06/08/2024 3:59 AM [facility] Comment: [...] MD CHEMISTRY ORDERABLES [facility] [place] [address] * POC, GLUCOSE (06/07/2024 11:57 PM EST) Glucometer, POC 188 65 - 199 mg/dL 06/07/2024 11:[address] [facility] Comment:Supplemental ranges: <140 mg/dL before meals <180 mg/dL all other times of the day. Blood CAPILLARY BLOOD / Unknown 06/07/2024 11:57 PM EST 06/07/2024 11:58 PM EST Melida Valdes MD POINT OF CARE TEST O NIKA Performing Organization Address City/[facility]/ZIP Co de Phone Number [facility] [place] [address] * POC, GLUCOSE (06/07/2024 8:05 PM EST) Glucometer, POC 118 65 - 199 mg/dL 06/07/2024 8:[address] [facility] Comment:Supplemental ranges: <140 mg/dL before meals <180 mg/dL all other times of the day. Blood CAPILLARY BLOOD / Unknown 06/07/2024 8:05 PM EST 06/07/2024 8:06 PM EST Melida Valdes MD POINT OF CARE TEST O NIKA Performing Organization Address [facility] Co de Phone Number [facility] [place] [address] * Potassium (06/07/2024 5:22 PM EST) Potassium 4.6 3.5 - 5.0 mMol/L 06/07/2024 5:[address] [facility] Blood VENOUS BLOOD SPECIMEN / Unknown Venipuncture / Unknown 06/07/2024 5:22 PM EST 06/07/2024 5:26 PM EST Shahnaz Scanlon MD CHEMISTRY ORDERABLES Performing Organization Address City/[facility]/ZIP Co de Phone Number [facility] [place] [address] * POC, GLUCOSE (06/07/2024 4:31 PM EST) Glucometer, POC 174 65 - 199 mg/dL 06/07/2024 4:[address] [facility] Comment:Supplemental ranges: <140 mg/dL before meals <180 mg/dL all other times of the day. Blood CAPILLARY BLOOD / Unknown 06/07/2024 4:31 PM EST 06/07/2024 4:34 PM EST Melida Valdes MD POINT OF CARE TEST O RDERABLES [facility] [address] [place] [address] * MRI Cardiac Morphology Function wwo Contrast (06/07/2024 1:10 PM EST) WORKSTATION ID [id number] DH RAD Anatomical Region Laterality Modality Magnetic [...] - Mildly dilated left ventricle size with qjgnrffi-ng-hrtopzrs decreased LV systolic function. ??LV ejection fraction [...] who have questions please contact the health patient care associate that requested your imaging first. ? Electronically signed by: Kriss Alonzo MD, [facility] ([phone]), at 06/07/2024 2:41 PM Narrative 06/07/2024 2:41 [...] VENTRICLE: Mildly dilated left ventricle size with wsbmmcyz-kw-zrunsbed decreased LV systolic function. ??LV ejection fraction [...] VENTRICLE: Mildly dilated left ventricle size with zoftlbka-ke-ltygxxne decreasedLV systolic function. LV ejection fraction is [...] - Mildly dilated left ventricle size with dykrknxo-fc-vwxmqouc decreasedLV systolic function. LV ejection fraction is [...] patients who have questions please contactthe health patient care associate that requested your imaging first. Electronically signed by: Kriss Alonzo MD, [facility]([phone]), at 06/07/2024 2:41 PM Delroy Fofana MD [...] TEST O RDERABLES [facility] [place] [address] * (ABNORMAL) POC, GLUCOSE (06/07/2024 11:03 AM EST) Glucometer, POC 250(H) 65 - 199 mg/dL 06/07/2024 11:[address] [facility] Comment:Supplemental ranges: <140 mg/dL before meals <180 mg/dL all other times of the day. Blood CAPILLARY BLOOD / Unknown 06/07/2024 11:03 AM EST 06/07/2024 11:04 AM EST Melida Valdes MD POINT OF CARE TEST O RDERABLES [facility] [place] [address] * Potassium (06/07/2024 9:44 AM EST) Potassium 4.7 3.5 - 5.0 mMol/L 06/07/2024 10:[address] [facility] Blood VENOUS BLOOD SPECIMEN / Unknown Venipuncture / Unknown 06/07/2024 9:44 AM EST 06/07/2024 9:57 AM EST Shahnaz Scanlon MD CHEMISTRY ORDERABLES [facility] [place] [address] * POC, GLUCOSE (06/07/2024 7:45 AM EST) Glucometer, POC 175 65 - 199 mg/dL 06/07/2024 7:[address] [facility] Comment:Supplemental ranges: <140 mg/dL before meals <180 mg/dL all other times of the day. Blood CAPILLARY BLOOD / Unknown 06/07/2024 7:45 AM EST 06/07/2024 7:46 AM EST Melida Valdes MD POINT OF CARE TEST O RDERABLES [facility] [place] [address] * XR Chest PA & Lateral (Generic) (06/07/2024 7:03 AM EST) [facility] WORKSTATION ID [id number] RAD Anatomical Region Laterality Modality Chest N/A [...] who have questions please contact the health patient care associate that requested your imaging first. ? Electronically signed by: Stuart Aponte MD, [facility] ??([phone]), at 06/07/2024 10:45 AM Narrative 06/07/2024 10:45 [...] patients who have questions please contactthe health patient care associate that requested your imaging first. Electronically signed by: Stuart Aponte MD, [facility]([phone]), at 06/07/2024 10:45 AM Shahnaz Scanlon MD IMG DX ORDERABLES * POC, GLUCOSE (06/07/2024 4:25 AM EST) [facility] Signature Glucometer, POC 127 65 - 199 mg/dL 06/07/2024 4:[address] [facility] Comment:Supplemental ranges: <140 mg/dL before meals <180 mg/dL all other times of the day. Blood CAPILLARY BLOOD / Unknown 06/07/2024 4:25 AM EST 06/07/2024 4:26 AM EST Melida Valdes MD POINT OF CARE TEST O RDERABLES Performing Organization Address [facility]/ZIP Co de Phone Number [facility] [place] [address] * Heparin (unfractionated) Level (06/07/2024 2:41 AM EST) Pathologist [facility] UF Heparin 0.45 IU/mL 06/07/2024 3:03 AM [...] HEMATOLOGY ORDERABLE S [facility] [place] [address] * (ABNORMAL) CBC (with Diff) (06/07/2024 2:41 AM EST) [facility] White Blood Cell 10.06(H) 4.00 - 9.50 x10(3)/mc L 06/07/2024 2:[address] [facility] Red Blood Cell 5.02 4.58 - 5.54 x10(6)/mc L 06/07/2024 2:58 AM [facility] Hemoglobin 14.8 13.7 - 16.5 g/dL 06/07/2024 2:58 AM [facility] Hematocrit 46.2 40.5 - 48.5 % 06/07/2024 2:58 AM [facility] Mean Cell Volume 92.0 82.9 - 93.1 fL 06/07/2024 2:58 AM [facility] Mean Cell Hemoglobin 29.5 27.5 - 32.1 pg 06/07/2024 2:58 AM [facility] Mean Cell Hemoglobin Concentration 32.0 32.0 - 35.7 g/dL 06/07/2024 2:58 AM [facility] Platelet 202 145 - 357 x10(3)/mc L 06/07/2024 2:58 AM [facility] Mean Platelet Volume 9.6 7.6 - 12.9 fL 06/07/2024 2:58 AM [facility] RDW Standard Deviation 46.3(H) 36.0 - 45.0 fL 06/07/2024 2:58 AM [facility] RDW coefficient of variation 13.8 11.4 - 13.8 % 06/07/2024 2:58 AM [facility] NRBC% auto 0.0 % 06/07/2024 2:58 AM [facility] NRBC Absolute <0.01 <0.01 x10(3)/mc L 06/07/2024 2:58 AM [facility] Neutrophil % 55.9 % 06/07/2024 2:58 AM [facility] Neutrophil Absolute (ANC) - Automated 5.62 1.70 - 6.10 x10(3)/mc L 06/07/2024 2:58 AM [facility] Lymph % 28.3 % 06/07/2024 2:58 AM [facility] Lymph Absolute 2.85 0.90 - 3.20 x10(3)/mc L 06/07/2024 2:58 AM [facility] Monocyte % 10.8 % 06/07/2024 2:58 AM [facility] Monocyte Absolute 1.09(H) 0.30 - 0.90 x10(3)/mc L 06/07/2024 2:58 AM [facility] Eos % 3.6 % 06/07/2024 2:58 AM [facility] Eos Absolute 0.36 0.00 - 0.40 x10(3)/mc L 06/07/2024 2:58 AM [facility] Basophil % 0.8 % 06/07/2024 2:58 AM [facility] Baso Absolute 0.08 0.00 - 0.10 x10(3)/mc L 06/07/2024 2:58 AM [facility] Immature Gran % 0.6 % 2:58 AM [facility] Immature Gran Absolute 0.06(H) 0.00 - 0.04 x10(3)/mc L 06/07/2024 2:58 AM [facility] Blood VENOUS BLOOD SPECIMEN / Unknown Venipuncture / Unknown 06/07/2024 2:41 AM EST 06/07/2024 2:52 AM EST Shahnaz Scanlon MD HEMATOLOGY ORDERABLE S [facility] [place] [address] * Magnesium (06/07/2024 2:41 AM EST) Magnesium 0.92 0.69 - 1.07 mMol/L 06/07/2024 3:25 AM [facility] Blood VENOUS BLOOD SPECIMEN / Unknown Venipuncture / Unknown 06/07/2024 2:41 AM EST 06/07/2024 2:51 AM EST Shahnaz Scanlon MD CHEMISTRY ORDERABLES [facility] [place] [address] * (ABNORMAL) Basic Metabolic Panel (06/07/2024 2:41 AM EST) Glucose 140 65 - 199 mg/dL 06/07/2024 3:[address] [facility] Comment:Glucose Concentratio n >=200 mg/dL plus symptoms is consistent with Diabetes Mellitus. Blood Urea Nitrogen 26(H) 10 - 20 mg/dL 06/07/2024 3:25 AM [facility] Creatinine 1.06 0.80 - 1.50 mg/dL 06/07/2024 3:25 AM [facility] Sodium 136 135 - 145 mMol/L 06/07/2024 3:25 AM [facility] Potassium 3.8 3.5 - 5.0 mMol/L 06/07/2024 3:25 AM [facility] Chloride 98 98 - 107 mMol/L 06/07/2024 3:25 AM [facility] Carbon Dioxide 28 22 - 31 mMol/L 06/07/2024 3:25 AM [facility] Anion Gap 10 5 - 15 mMol/L 06/07/2024 3:25 AM [facility] Calcium 9.4 8.5 - 10.5 mg/dL 06/07/2024 3:25 AM [facility] Est Glomerular Filtration Rate - Male 77 mL/min/1. 73 m?? 06/07/2024 3:25 AM [facility] Comment: [...] Scanlon MD CHEMISTRY ORDERABLES Performing Organization Address City/[facility]/ZIP Co de Phone Number [facility] [place] [address] * POC, GLUCOSE (06/07/2024 12:08 AM EST) Glucometer, POC 182 65 - 199 mg/dL 06/07/2024 12:[address] [facility] Comment:Supplemental ranges: <140 mg/dL before meals <180 mg/dL all other times of the day. Blood CAPILLARY BLOOD / Unknown 06/07/2024 12:08 AM EST 06/07/2024 12:09 AM EST Melida Valdes MD POINT OF CARE TEST O NIKA Performing Organization Address [facility] Co de Phone Number [facility] [place] [address] * POC, GLUCOSE (06/06/2024 8:18 PM EST) Glucometer, POC 143 65 - 199 mg/dL 06/06/2024 8:[address] [facility] Comment:Supplemental ranges: <140 mg/dL before meals <180 mg/dL all other times of the day. Blood CAPILLARY BLOOD / Unknown 06/06/2024 8:18 PM EST 06/06/2024 8:19 PM EST Melida Valdes MD POINT OF CARE TEST O RDERABLES Performing Organization Address City/[facility]/ZIP Co de Phone Number [facility] [place] [address] * POC, GLUCOSE (06/06/2024 3:39 PM EST) Glucometer, POC 147 65 - 199 mg/dL 06/06/2024 3:[address] [facility] Comment:Supplemental ranges: <140 mg/dL before meals <180 mg/dL all other times of the day. Blood CAPILLARY BLOOD / Unknown 06/06/2024 3:39 PM EST 06/06/2024 3:40 PM EST Melida Valdes MD POINT OF CARE TEST O NIKA [facility] [place] [address] * Potassium (06/06/2024 2:37 PM EST) Potassium 4.3 3.5 - 5.0 mMol/L 06/06/2024 3:[address] [facility] Blood VENOUS BLOOD SPECIMEN / Unknown Venipuncture / Unknown 06/06/2024 2:37 PM EST 06/06/2024 2:42 PM EST Shahnaz Scanlon MD CHEMISTRY ORDERABLES Performing Organization Address [facility] Co de Phone Number [facility] [place] [address] * (ABNORMAL) POC, GLUCOSE (06/06/2024 1:39 PM EST) Glucometer, POC 317(H) 65 - 199 mg/dL 06/06/2024 1:[address] [facility] Comment:Supplemental ranges: <140 mg/dL before meals <180 mg/dL all other times of the day. Blood CAPILLARY BLOOD / Unknown 06/06/2024 1:39 PM EST 06/06/2024 1:41 PM EST Melida Valdes MD POINT OF CARE TEST O NIKA Performing Organization Address City/[facility]/ZIP Co de Phone Number [facility] [place] [address] * (ABNORMAL) POC, GLUCOSE (06/06/2024 11:34 AM EST) Glucometer, POC 264(H) 65 - 199 mg/dL 06/06/2024 11:[address] [facility] Comment:Supplemental ranges: <140 mg/dL before meals <180 mg/dL all other times of the day. Blood CAPILLARY BLOOD / Unknown 06/06/2024 11:34 AM EST 06/06/2024 11:35 AM EST Melida Valdes MD POINT OF CARE TEST O RDBECKIE Performing Organization Address City/[facility]/ZIP Co de Phone Number [facility] [place] [address] * Potassium (06/06/2024 10:17 AM EST) Potassium 4.3 3.5 - 5.0 mMol/L 06/06/2024 10:[address] [facility] Blood VENOUS BLOOD SPECIMEN / Unknown Venipuncture / Unknown 06/06/2024 10:17 AM EST 06/06/2024 10:22 AM EST Shahnaz Scanlon MD CHEMISTRY ORDERABLES Performing Organization Address [facility] Co de Phone Number [facility] [place] [address] * POC, GLUCOSE (06/06/2024 7:57 AM EST) Glucometer, POC 195 65 - 199 mg/dL 06/06/2024 8:[address] [facility] Comment:Supplemental ranges: <140 mg/dL before meals <180 mg/dL all other times of the day. Blood CAPILLARY BLOOD / Unknown 06/06/2024 7:57 AM EST 06/06/2024 8:03 AM EST Melida Valdes MD POINT OF CARE TEST O RDERAPIETER Performing Organization Address City/[facility]/ZIP Co de Phone Number [facility] [place] [address] * POC, GLUCOSE (06/06/2024 6:53 AM EST) Glucometer, POC 187 65 - 199 mg/dL 06/06/2024 6:[address] [facility] Comment:Supplemental ranges: <140 mg/dL before meals <180 mg/dL all other times of the day. Blood CAPILLARY BLOOD / Unknown 06/06/2024 6:53 AM EST 06/06/2024 6:54 AM EST Melida Valdes MD POINT OF CARE TEST O RDERABLES Performing Organization Address [facility]/ZIP Co de Phone Number [facility] [place] [address] * (ABNORMAL) Hemoglobin A1c (06/06/2024 3:33 AM EST) [facility] Hemoglobin A1c 7.1(H) 4.3 - 5.6 % [...] red blood cell turnover may not be food service representative of glycemic control. Reference Interval: 4.3 - 5.6% 5.7 - 6.4%: Consistent with prediabetes >=6.5%: Consistent with diagnosis of diabetes mellitus Estimated Average Glucose 157 mg/dL 06/06/2024 1:[address] [facility] Blood VENOUS BLOOD SPECIMEN / Unknown Venipuncture / Unknown 06/06/2024 3:33 AM EST 06/06/2024 3:48 AM EST Alejadnra Baumann APRN CHEMISTRY ORDERAB LES Performing Organization Address City/[facility]/ZIP Co de Phone Number [facility] [place] [address] * Heparin (unfractionated) Level (06/06/2024 3:33 AM EST) Pathologist [facility] UF Heparin 0.36 IU/mL 06/06/2024 3:59 [...] AM EST 06/06/2024 3:48 AM EST Shahnaz Scnalon MD HEMATOLOGY ORDERABLE S [facility] [place] [address] * (ABNORMAL) CBC (with Diff) (06/06/2024 3:33 AM EST) Pathologist [facility] White Blood Cell 9.81(H) 4.00 - 9.50 x10(3)/mc L 06/06/2024 3:[address] [facility] Red Blood Cell 4.91 4.58 - 5.54 x10(6)/mc L 06/06/2024 3:[address] [facility] Hemoglobin 14.6 13.7 - 16.5 g/dL 06/06/2024 3:[address] [facility] Hematocrit 45.4 40.5 - 48.5 % 06/06/2024 3:54 [address] [facility] Mean Cell Volume 92.5 82.9 - 93.1 fL 06/06/2024 3:54 AM [facility] Mean Cell Hemoglobin 29.7 27.5 - 32.1 pg 06/06/2024 3:54 AM [facility] Mean Cell Hemoglobin Concentration 32.2 32.0 - 35.7 g/dL 06/06/2024 3:54 AM [facility] Platelet 199 145 - 357 x10(3)/mc L 06/06/2024 3:54 AM [facility] Mean Platelet Volume 9.5 7.6 - 12.9 fL 06/06/2024 3:54 AM [facility] RDW Standard Deviation 47.2(H) 36.0 - 45.0 fL 06/06/2024 3:54 AM [facility] RDW coefficient of variation 13.9(H) 11.4 - 13.8 % 06/06/2024 3:54 AM [facility] NRBC% auto 0.0 % 06/06/2024 3:54 AM [facility] NRBC Absolute <0.01 <0.01 x10(3)/mc L 06/06/2024 3:54 AM [facility] Neutrophil % 56.8 % 06/06/2024 3:54 AM [facility] Neutrophil Absolute (ANC) - Automated 5.57 1.70 - 6.10 x10(3)/mc L 06/06/2024 3:54 AM [facility] Lymph % 27.6 % 06/06/2024 3:54 AM [facility] Lymph Absolute 2.71 0.90 - 3.20 x10(3)/mc L 06/06/2024 3:54 AM [facility] Monocyte % 11.1 % 06/06/2024 3:54 AM [facility] Monocyte Absolute 1.09(H) 0.30 - 0.90 x10(3)/mc L 06/06/2024 3:[address] [facility] Eos % 3.0 % 06/06/2024 3:[address] [facility] Eos Absolute 0.29 0.00 - 0.40 x10(3)/mc L 06/06/2024 3:[address] [facility] Basophil % 0.9 % 06/06/2024 3:54 AM [facility] Baso Absolute 0.09 0.00 - 0.10 x10(3)/mc L 06/06/2024 3:54 AM [facility] Immature Gran % 0.6 % 3:54 AM [facility] Immature Gran Absolute 0.06(H) 0.00 - 0.04 x10(3)/mc L 06/06/2024 3:54 AM [facility] Blood VENOUS BLOOD SPECIMEN / Unknown Venipuncture / Unknown 06/06/2024 3:33 AM EST 06/06/2024 3:48 AM EST Shahnaz Scanlon MD HEMATOLOGY ORDERABLE S [facility] [place] [address] * Magnesium (06/06/2024 3:33 AM EST) [facility] Magnesium 0.92 0.69 - 1.07 mMol/L 06/06/2024 4:[address] [facility] Blood VENOUS BLOOD SPECIMEN / Unknown Venipuncture / Unknown 06/06/2024 3:33 AM EST 06/06/2024 3:47 AM EST Shahnaz Scanlon MD CHEMISTRY ORDERABLES [facility] [place] [address] * (ABNORMAL) Basic Metabolic Panel (06/06/2024 3:33 AM EST) Glucose 190 65 - 199 mg/dL 06/06/2024 4:17 AM [facility] Comment:Glucose Concentratio n >=200 mg/dL plus symptoms is consistent with Diabetes Mellitus. Blood Urea Nitrogen 27(H) 10 - 20 mg/dL 06/06/2024 4:17 AM [facility] Creatinine 1.12 0.80 - 1.50 mg/dL 06/06/2024 4:17 AM [facility] Sodium 136 135 - 145 mMol/L 06/06/2024 4:17 AM [facility] Potassium 4.0 3.5 - 5.0 mMol/L 06/06/2024 4:17 AM [facility] Chloride 97(L) 98 - 107 mMol/L 06/06/2024 4:17 AM [facility] Carbon Dioxide 26 22 - 31 mMol/L 06/06/2024 4:17 AM [facility] Anion Gap 13 5 - 15 mMol/L 06/06/2024 4:17 AM [facility] Calcium 9.1 8.5 - 10.5 mg/dL 06/06/2024 4:17 AM [facility] Est Glomerular Filtration Rate - Male 72 mL/min/1. 73 m?? 06/06/2024 4:17 AM [facility] Comment: [...] MD CHEMISTRY ORDERABLES [facility] [place] [address] * (ABNORMAL) POC, GLUCOSE (06/05/2024 10:31 PM EDT) Glucometer, POC 238(H) 65 - 199 mg/dL 06/05/2024 10:[address] [facility] Comment:Supplemental ranges: <140 mg/dL before meals <180 mg/dL all other times of the day. Blood CAPILLARY BLOOD / Unknown 06/05/2024 10:31 PM EDT 06/05/2024 10:31 PM EDT Melida Valdes MD POINT OF CARE TEST O RDERABLES Performing Organization Address City/[facility]/ZIP Co de Phone Number [facility] [place] [address] * (ABNORMAL) POC, GLUCOSE (06/05/2024 4:22 PM EDT) Glucometer, POC 205(H) 65 - 199 mg/dL 06/05/2024 4:[address] [facility] Comment:Supplemental ranges: <140 mg/dL before meals <180 mg/dL all other times of the day. Blood CAPILLARY BLOOD / Unknown 06/05/2024 4:22 PM EDT 06/05/2024 4:23 PM EDT Melida Valdes MD POINT OF CARE TEST O RDERABLES [facility] [place] [address] * (ABNORMAL) POC, GLUCOSE (06/05/2024 11:34 AM EDT) Glucometer, POC 211(H) 65 - 199 mg/dL 06/05/2024 11:[address] [facility] Comment:Supplemental ranges: <140 mg/dL before meals <180 mg/dL all other times of the day. Blood CAPILLARY BLOOD / Unknown 06/05/2024 11:34 AM EDT 06/05/2024 11:34 AM EDT Melida Valdes MD POINT OF CARE TEST O RDERABLES Performing Organization Address City/[facility]/ZIP Co de Phone Number [facility] [place] [address] * Potassium (06/05/2024 9:04 AM EDT) Potassium 4.3 3.5 - 5.0 mMol/L 06/05/2024 9:[address] [facility] Blood VENOUS BLOOD SPECIMEN / Unknown Venipuncture / Unknown 06/05/2024 9:04 AM EDT 06/05/2024 9:21 AM EDT Shahnaz Scanlon MD CHEMISTRY ORDERABLES Performing Organization Address [facility] Co de Phone Number [facility] [place] [address] * POC, GLUCOSE (06/05/2024 7:27 AM EDT) Glucometer, POC 166 65 - 199 mg/dL 06/05/2024 7:[address] [facility] Comment:Supplemental ranges: <140 mg/dL before meals <180 mg/dL all other times of the day. Blood CAPILLARY BLOOD / Unknown 06/05/2024 7:27 AM EDT 06/05/2024 7:27 AM EDT Melida Valdes MD POINT OF CARE TEST O RDBECKIE Performing Organization Address City/[facility]/ZIP Co de Phone Number [facility] [place] [address] * Heparin (unfractionated) Level (06/05/2024 3:44 AM [...] HEMATOLOGY ORDERABLE S [facility] [place] [address] * (ABNORMAL) CBC (with Diff) (06/05/2024 3:44 AM EDT) White Blood Cell 10.83(H) 4.00 - 9.50 x10(3)/mc L 06/05/2024 3:[address] [facility] Red Blood Cell 5.07 4.58 - 5.54 x10(6)/mc L 06/05/2024 3:[address] [facility] Hemoglobin 15.3 13.7 - 16.5 g/dL 06/05/2024 3:[address] [facility] Hematocrit 46.8 40.5 - 48.5 % 06/05/2024 3:[address] [facility] Mean Cell Volume 92.3 82.9 - 93.1 fL 06/05/2024 3:56 AM [facility] Mean Cell Hemoglobin 30.2 27.5 - 32.1 pg 06/05/2024 3:56 AM [facility] Mean Cell Hemoglobin Concentration 32.7 32.0 - 35.7 g/dL 06/05/2024 3:56 AM [facility] Platelet 219 145 - 357 x10(3)/mc L 06/05/2024 3:56 AM [facility] Mean Platelet Volume 9.4 7.6 - 12.9 fL 06/05/2024 3:56 AM [facility] RDW Standard Deviation 46.7(H) 36.0 - 45.0 fL 06/05/2024 3:56 AM [facility] RDW coefficient of variation 13.9(H) 11.4 - 13.8 % 06/05/2024 3:56 AM [facility] NRBC% auto 0.0 % 06/05/2024 3:56 AM [facility] NRBC Absolute <0.01 <0.01 x10(3)/mc L 06/05/2024 3:56 AM [facility] Neutrophil % 61.5 % 06/05/2024 3:56 AM [facility] Neutrophil Absolute (ANC) - Automated 6.65(H) 1.70 - 6.10 x10(3)/mc L 06/05/2024 3:56 AM [facility] Lymph % 24.0 % 06/05/2024 3:56 AM [facility] Lymph Absolute 2.60 0.90 - 3.20 x10(3)/mc L 06/05/2024 3:56 AM [facility] Monocyte % 10.9 % 06/05/2024 3:56 AM [facility] Monocyte Absolute 1.18(H) 0.30 - 0.90 x10(3)/mc L 06/05/2024 3:[address] [facility] Eos % 2.2 % 06/05/2024 3:[address] [facility] Eos Absolute 0.24 0.00 - 0.40 x10(3)/mc L 06/05/2024 3:[address] [facility] Basophil % 0.8 % 06/05/2024 3:[address] [facility] Baso Absolute 0.09 0.00 - [...] AM EDT 06/05/2024 3:50 AM EDT Shahnaz Scalnon MD HEMATOLOGY ORDERABLE S [facility] [place] [address] * Magnesium (06/05/2024 3:44 AM EDT) [facility] Magnesium 0.92 0.69 - 1.07 mMol/L 06/05/2024 4:[address] [facility] Blood VENOUS BLOOD SPECIMEN / Unknown Venipuncture / Unknown 06/05/2024 3:44 AM EDT 06/05/2024 3:50 AM EDT Shahnaz Scanlon MD CHEMISTRY ORDERABLES [facility] [place] [address] * (ABNORMAL) Basic Metabolic Panel (06/05/2024 3:44 AM EDT) Glucose 155 65 - 199 mg/dL 06/05/2024 4:20 AM [facility] Comment:Glucose Concentratio n >=200 mg/dL plus symptoms is consistent with Diabetes Mellitus. Blood Urea Nitrogen 25(H) 10 - 20 mg/dL 06/05/2024 4:20 AM [facility] Creatinine 1.16 0.80 - 1.50 mg/dL 06/05/2024 4:20 AM [facility] Sodium 136 135 - 145 mMol/L 06/05/2024 4:20 AM [facility] Potassium 3.9 3.5 - 5.0 mMol/L 06/05/2024 4:20 AM [facility] Chloride 95(L) 98 - 107 mMol/L 06/05/2024 4:20 AM [facility] Carbon Dioxide 29 22 - 31 mMol/L 06/05/2024 4:20 AM [facility] Anion Gap 12 5 - 15 mMol/L 06/05/2024 4:20 AM [facility] Calcium 9.2 8.5 - 10.5 mg/dL 06/05/2024 4:20 AM [facility] Est Glomerular Filtration Rate - Male 69 mL/min/1. 73 m?? 06/05/2024 4:20 AM [facility] Comment: This patient's estimated [...] Scanlon MD CHEMISTRY ORDERABLES Performing Organization Address [facility]/ZIP Co de Phone Number [facility] [place] [address] * Potassium (06/04/2024 10:34 PM EDT) Potassium 3.7 3.5 - 5.0 mMol/L 06/04/2024 11:[address] [facility] Blood VENOUS BLOOD SPECIMEN / Unknown Venipuncture / Unknown 06/04/2024 10:34 PM EDT 06/04/2024 10:39 PM EDT Shahnaz Scanlon MD CHEMISTRY ORDERABLES Performing Organization Address [facility] Co de Phone Number [facility] [place] [address] * POC, GLUCOSE (06/04/2024 7:43 PM EDT) Glucometer, POC 175 65 - 199 mg/dL 06/04/2024 7:[address] [facility] Comment:Supplemental ranges: <140 mg/dL before meals <180 mg/dL all other times of the day. Blood CAPILLARY BLOOD / Unknown 06/04/2024 7:43 PM EDT 06/04/2024 7:43 PM EDT Melida Valdes MD POINT OF CARE TEST O RDERABLES Performing Organization Address City/[facility]/ZIP Co de Phone Number [facility] [place] [address] * Potassium (06/04/2024 4:35 PM EDT) Potassium 4.0 3.5 - 5.0 mMol/L 06/04/2024 5:[address] [facility] Blood VENOUS BLOOD SPECIMEN / Unknown Venipuncture / Unknown 06/04/2024 4:35 PM EDT 06/04/2024 4:40 PM EDT Shahnaz Scanlon MD CHEMISTRY ORDERABLES Performing Organization Address [facility]/ZIP Co de Phone Number [facility] [place] [address] * POC, GLUCOSE (06/04/2024 3:26 PM EDT) Glucometer, POC 154 65 - 199 mg/dL 06/04/2024 3:[address] [facility] Comment:Supplemental ranges: <140 mg/dL before meals <180 mg/dL all other times of the day. Blood CAPILLARY BLOOD / Unknown 06/04/2024 3:26 PM EDT 06/04/2024 3:27 PM EDT Melida Valdes MD POINT OF CARE TEST O RDERABLES Performing Organization Address [facility] Co de Phone Number [facility] [place] [address] * POC, GLUCOSE (06/04/2024 11:09 AM EDT) Glucometer, POC 188 65 - 199 mg/dL 06/04/2024 11:[address] [facility] Comment:Supplemental ranges: <140 mg/dL before meals <180 mg/dL all other times of the day. Blood CAPILLARY BLOOD / Unknown 06/04/2024 11:09 AM EDT 06/04/2024 11:09 AM EDT Delroy Fofana MD POINT OF CARE TEST ORDERABLES Performing Organization Address [facility] Co de Phone Number [facility] [place] [address] * Heparin (unfractionated) Level (06/04/2024 10:41 AM [...] MD HEMATOLOGY ORDERABLE S Performing Organization Address City/[facility]/ZIP Co de Phone Number [facility] [place] [address] * Potassium (06/04/2024 10:41 AM EDT) [facility] Potassium 4.0 3.5 - 5.0 mMol/L 06/04/2024 11:[address] [facility] Blood VENOUS BLOOD SPECIMEN / Unknown Venipuncture / Unknown 06/04/2024 10:41 AM EDT 06/04/2024 10:46 AM EDT Shahnaz Scanlon MD CHEMISTRY ORDERABLES Performing Organization Address City/[facility]/ZIP Co de Phone Number [facility] [place] [address] * POC, GLUCOSE (06/04/2024 7:11 AM EDT) Glucometer, POC 182 65 - 199 mg/dL 06/04/2024 7:[address] [facility] Comment:Supplemental ranges: <140 mg/dL before meals <180 mg/dL all other times of the day. Blood CAPILLARY BLOOD / Unknown 06/04/2024 7:11 AM EDT 06/04/2024 7:12 AM EDT Delroy Fofana MD POINT OF CARE TEST ORDERABLES Performing Organization Address [facility] Co de Phone Number [facility] [place] [address] * Heparin (unfractionated) Level (06/04/2024 4:38 AM [...] MD HEMATOLOGY ORDERABLE S Performing Organization Address [facility]/ZIP Co de Phone Number [facility] [place] [address] * (ABNORMAL) CBC (with Diff) (06/04/2024 4:38 AM EDT) White Blood Cell 11.45(H) 4.00 - 9.50 x10(3)/mc L 06/04/2024 5:12 AM [facility] Red Blood Cell 5.35 4.58 - 5.54 x10(6)/mc L 06/04/2024 5:12 AM [facility] Hemoglobin 16.0 13.7 - 16.5 g/dL 06/04/2024 5:12 AM [facility] Hematocrit 49.6(H) 40.5 - 48.5 % 06/04/2024 5:12 AM [facility] Mean Cell Volume 92.7 82.9 - 93.1 fL 06/04/2024 5:12 AM [facility] Mean Cell Hemoglobin 29.9 27.5 - 32.1 pg 06/04/2024 5:12 AM [facility] Mean Cell Hemoglobin Concentration 32.3 32.0 - 35.7 g/dL 06/04/2024 5:12 AM [facility] Platelet 222 145 - 357 x10(3)/mc L 06/04/2024 5:12 AM [facility] Mean Platelet Volume 9.5 7.6 - 12.9 fL 06/04/2024 5:12 AM [facility] RDW Standard Deviation 47.6(H) 36.0 - 45.0 fL 06/04/2024 5:12 AM [facility] RDW coefficient of variation 14.1(H) 11.4 - 13.8 % 06/04/2024 5:12 AM [facility] NRBC% auto 0.0 % 06/04/2024 5:12 AM [facility] NRBC Absolute <0.01 <0.01 x10(3)/mc L 06/04/2024 5:12 AM [facility] Neutrophil % 60.3 % 06/04/2024 5:12 AM [facility] Neutrophil Absolute (ANC) - Automated 6.91(H) 1.70 - 6.10 x10(3)/mc L 06/04/2024 5:[address] [facility] Lymph % 25.1 % 06/04/2024 5:[address] [facility] Lymph Absolute 2.87 0.90 - 3.20 x10(3)/mc L 06/04/2024 5:[address] [facility] Monocyte % 10.6 % 06/04/2024 5:[address] [facility] Monocyte Absolute 1.21(H) 0.30 - [...] HEMATOLOGY ORDERABLE S [facility] [place] [address] * Magnesium (06/04/2024 4:38 AM EDT) Magnesium 0.84 0.69 - 1.07 mMol/L 06/04/2024 5:[address] [facility] Blood VENOUS BLOOD SPECIMEN / Unknown Venipuncture / Unknown 06/04/2024 4:38 AM EDT 06/04/2024 5:07 AM EDT Shahnaz Scanlon MD CHEMISTRY ORDERABLES [facility] [place] [address] * (ABNORMAL) Basic Metabolic Panel (06/04/2024 4:38 AM EDT) Glucose 118 65 - 199 mg/dL 06/04/2024 5:[address] [facility] Comment:Glucose Concentratio n >=200 mg/dL plus symptoms is consistent with Diabetes Mellitus. Blood Urea Nitrogen 22(H) 10 - 20 mg/dL 06/04/2024 5:[address] [facility] Creatinine 1.22 0.80 - 1.50 mg/dL 06/04/2024 5:[address] [facility] Sodium 137 135 - 145 mMol/L 06/04/2024 5:[address] [facility] Potassium 3.6 3.5 - 5.0 mMol/L 06/04/2024 5:35 AM [facility] Chloride 97(L) 98 - 107 mMol/L 06/04/2024 5:[address] [facility] Carbon Dioxide 29 22 - 31 mMol/L 06/04/2024 5:[address] [facility] Anion Gap 11 5 - 15 mMol/L 06/04/2024 5:[address] [facility] Calcium 9.0 8.5 - 10.5 mg/dL 06/04/2024 [facility] Est Glomerular Filtration Rate - Male 65 mL/min/1. 73 m?? 06/04/2024 5:[address] [facility] Comment: [...] MD CHEMISTRY ORDERABLES [facility] [place] [address] * Heparin (unfractionated) Level (06/03/2024 8:58 PM [...] HEMATOLOGY ORDERABLE S [facility] [place] [address] * POC, GLUCOSE (06/03/2024 8:05 PM EDT) Glucometer, POC 136 65 - 199 mg/dL 06/03/2024 8:[address] [facility] Comment:Supplemental ranges: <140 mg/dL before meals <180 mg/dL all other times of the day. Blood CAPILLARY BLOOD / Unknown 06/03/2024 8:05 PM EDT 06/03/2024 8:05 PM EDT Delroy Fofana MD POINT OF CARE TEST ORDERABLES Performing Organization Address City/[facility]/ZIP Co de Phone Number [facility] [place] [address] * POC, GLUCOSE (06/03/2024 5:48 PM EDT) Glucometer, POC 191 65 - 199 mg/dL 06/03/2024 5:[address] [facility] Comment:Supplemental ranges: <140 mg/dL before meals <180 mg/dL all other times of the day. Blood CAPILLARY BLOOD / Unknown 06/03/2024 5:48 PM EDT 06/03/2024 5:49 PM EDT Delroy Fofana MD POINT OF CARE TEST ORDERABLES [facility] [place] [address] * CT Chest wo Contrast (Generic) (06/03/2024 4:33 PM EDT) WORKSTATION ID [id number] RAD Anatomical Region Laterality Modality Chest Computed Tomogra phy Impressions 06/03/2024 4:47 PM EDT Cardiomegaly. Biventricular ICD leads in place. Thank you for letting us participate in the care of this patient. ??If you are a health care provider and have any questions regarding this report, please contact the number below. ??For patients who have questions please contact the health patient care associate that requested your imaging first. ? Electronically signed by: Stuart Aponte MD, [facility] ??([phone]), at 06/03/2024 4:47 PM Narrative 06/03/2024 4:47 [...] patients who have questions please contactthe health patient care associate that requested your imaging first. Electronically signed by: Stuart Aponte MD, [facility]([phone]), at 06/03/2024 4:47 PM Bobby Loja MD IMG CT ORDERABLES * Carotid Duplex, Bilateral (06/03/2024 2:19 PM EDT) VB Text Report Department: Vascular Surgery Lab Patient: [id number] (GEORGE MEHTA) CPT: 19538 Referring Physician: BOBBY LOJA ?? Phone: Indications: [...] Loja MD VASCULAR ORDERABLES Performing Organization Address City/[facility] Co de Phone Number [id number] * [...] MD HEMATOLOGY ORDERABLE S Performing Organization Address City/[facility]/ZIP Co de Phone Number [facility] [place] [address] * POC, GLUCOSE (06/03/2024 11:14 AM EDT) Glucometer, POC 166 65 - 199 mg/dL 06/03/2024 11:[address] [facility] Comment:Supplemental ranges: <140 mg/dL before meals <180 mg/dL all other times of the day. Blood CAPILLARY BLOOD / Unknown 06/03/2024 11:14 AM EDT 06/03/2024 11:14 AM EDT Delroy Fofana MD POINT OF CARE TEST ORDERABLES [facility] [place] [address] * (ABNORMAL) Troponin-T, High Sensitivity 3 Hour [...] troponin value can be found in the [facility] Test Catalog Troponin - https://[facility]-.testcatalog.org/catalogs/565/files/50917 Reference: Fourth [place] Definition of Myocardial Infarction. Journal of the [place] [employer] 2018;72:9166-9959 Troponin-T, HS 3 hr delta 06/03/2024 10:[address] [facility] Comment:Delta troponin value not calculated, sample collected outside of delta calculation time limit. Blood VENOUS BLOOD SPECIMEN / Unknown IP Care Team Draw / Unknown 06/03/2024 10:06 AM EDT 06/03/2024 10:15 AM EDT Delroy Fofana MD CHEMISTRY ORDERABLE S [facility] [place] [address] * ECHO COMPLETE W CONTRAST (06/03/2024 8:46 AM EDT) Anatomical Region Laterality Modality Cardiac Other 06/03/2024 6:52 AM EDT Narrative 06/03/2024 10:32 AM EDT [address] [place] [id number] ? Echocardiogram Report Name: GEORGE MEHTA Raad ?Study Date: 06/03/2024 06:52 AM : 1955 ? Height: 168 cm ? Account: [id number] Age: 69 yrs ? Weight: 102 kg Gender: Male ?BSA: 2.1 m2 Ordering Physician: SHAHNAZ SCANLON Referring Physician: NEHAL QUINTERO Performed By: Sara Kebede RDCS Reason For Study: STEMI Exam Location: [facility]. Interpretation Summary -Left ventricular systolic function is [...] fellow performed study of today's date). Procedure Complete-[id number]. Image enhancement Optison was used for left [...] Procedure Note Jonnie Jordan MD - 06/03/[address] [place] [address] Echocardiogram Report Name: GEORGE MEHTA Study Date: 406:52 AM : 1955 Height: 168 cm Account: [id number] Age: 69 yrs Weight: 102 kg Gender: Male BSA: 2.1 m2 Ordering Physician: SHAHNAZ SCANLON Referring Physician: NEHAL QUINTERO Performed By: Sara Kebede RDCS Reason For Study: STEMI Exam Location: [facility]. Interpretation Summary -Left ventricular systolic function is [...] a fellow performed study of's date). Procedure Complete-[id number]. Image enhancement Optison was used for left [...] troponin value can be found in the [facility] Test Catalog Troponin - https://[email or web address].[email or web address]/catalogs/565/files/61449 Reference: Fourth [place] Definition of Myocardial Infarction. Journal of the [place] [employer] 2018;72:4224-0326 Troponin-T, HS 1 hr delta 5 ng/L [...] CHEMISTRY ORDERABLE S [facility] [place] [address] * POC, GLUCOSE (06/03/2024 7:54 AM EDT) [facility] Signature Glucometer, POC 195 65 - 199 mg/dL 06/03/2024 7:[address] [facility] Comment:Supplemental ranges: <140 mg/dL before meals <180 mg/dL all other times of the day. Blood CAPILLARY BLOOD / Unknown 06/03/2024 7:54 AM EDT 06/03/2024 7:55 AM EDT Nuha Rojo MD POINT OF CARE TEST ORDERABLES [facility] [place] [address] * (ABNORMAL) Troponin-T, High Sensitivity (06/03/2024 7:39 [...] troponin value can be found in the [facility] Test Catalog Troponin - https://[facility]-.testcatalog.org/catalogs/565/files/40309 Reference: Fourth [place] Definition of Myocardial Infarction. Journal of the [place] [employer] 2018;72:5974-5769 Blood VENOUS BLOOD SPECIMEN / Unknown Care Team Draw / Unknown 06/03/2024 7:39 AM EDT 06/03/2024 7:48 AM EDT Delroy Fofana MD CHEMISTRY ORDERABLE S [facility] [place] [address] * (ABNORMAL) Troponin-T, High Sensitivity 3 Hour [...] troponin value can be found in the [facility] Test Catalog Troponin - https://[facility]-.testcatalog.org/catalogs/565/files/47129 Reference: Fourth [place] Definition of Myocardial Infarction. Journal of the [place] [employer] 2018;72:7675-6100 Troponin-T, HS 3 hr delta 46 ng/L [...] MD CHEMISTRY ORDERABLES [facility] [place] [address] * (ABNORMAL) Troponin-T, High Sensitivity 1 Hour [...] troponin value can be found in the [facility] Test Catalog Troponin - https://[facility]-.testcatalog.org/catalogs/565/files/84324 Reference: Fourth [place] Definition of Myocardial Infarction. Journal of the [place] [employer] 2018;72:7999-6851 Troponin-T, HS 1 hr delta 10 ng/L [...] AM EDT Shahnaz Scanlon [place] [address] * XR Chest One View (06/03/2024 2:41 AM EDT) WORKSTATION ID [id number] RAD Anatomical Region Laterality Modality Chest N/A Digital Radiogra phy Impressions 06/03/2024 3:06 AM EDT No radiographically evident acute cardiopulmonary process. Thank you for letting us participate in the care of this patient. ??If you are a health care provider and have any questions regarding this report, please contact the number below. ??For patients who have questions please contact the health patient care associate that requested your imaging first. ? Narrative [...] patients who have questions please contactthe health patient care associate that requested your imaging first. Electronically signed by: Corazon Mauro MD, [facility]([phone]), at 06/03/2024 3:06 AM Shahnaz Scanlon MD [...] MD HEMATOLOGY ORDERABLE S Performing Organization Address City/[facility]/ZIP Co de Phone Number [facility] [place] [address] * (ABNORMAL) Troponin-T, High Sensitivity (06/03/2024 2:13 [...] troponin value can be found in the [facility] Test Catalog Troponin - https://[facility].testcatalog.org/catalogs/565/files/74031 Reference: Fourth [place] Definition of Myocardial Infarction. Journal of the [place] [employer] 2018;72:0242-4346 Blood VENOUS BLOOD SPECIMEN / Unknown IP Care Team Draw / Unknown 06/03/2024 2:13 AM EDT 06/03/2024 2:32 AM EDT Shahnaz Scanlon MD CHEMISTRY ORDERABLES Performing Organization Address City/[facility]/ZIP Co de Phone Number [facility] [place] [address] * Magnesium (06/03/2024 2:13 AM EDT) Magnesium 0.86 0.69 - 1.07 mMol/L 06/03/2024 3:[address] [facility] Blood VENOUS BLOOD SPECIMEN / Unknown IP Care Team Draw / Unknown 06/03/2024 2:13 AM EDT 06/03/2024 2:32 AM EDT Shahnaz Scanlon MD CHEMISTRY ORDERABLES [facility] [place] [address] * Basic Metabolic Panel (06/03/2024 2:13 AM EDT) Glucose 126 65 - 199 mg/dL 06/03/2024 3:[address] [facility] Comment:Glucose Concentratio n >=200 mg/dL plus symptoms is consistent with Diabetes Mellitus. Blood Urea Nitrogen 20 10 - 20 mg/dL [facility]/03[facility]2024 [facility] Creatinine 1.13 0.80 - 1.50 mg/dL 06/03/2024 3:02 AM [facility] Sodium 139 135 - 145 mMol/L 06/03/2024 3:02 AM [facility] Potassium 4.2 3.5 - 5.0 mMol/L 06/03/2024 3:02 AM [facility] Chloride 101 98 - 107 mMol/L 06/03/2024 3:[facility] Carbon Dioxide 26 22 - 31 mMol/L 06/03/2024 3:[facility] Anion Gap 12 5 - 15 mMol/L 06/03/2024 3:02 AM [facility] Calcium 9.8 8.5 - 10.5 mg/dL 06/03/2024 3:[facility] Est Glomerular Filtration Rate - Male 71 mL/min/1. 73 m?? 06/03/2024 3:[address] [facility] MD CHEMISTRY ORDERABLES [facility] [place] [address] * (ABNORMAL) CBC (with Diff) (06/03/2024 2:13 [...] 32.0 - 35.7 g/dL 06/03/2024 2:37 AM [facility] Platelet 217 145 - 357 x10(3)/mc L 06/03/2024 2:37 AM [facility] Mean Platelet Volume 9.5 7.6 - 12.9 fL 06/03/2024 2:37 AM [facility] RDW Standard Deviation 49.0(H) 36.0 - 45.0 fL 06/03/2024 2:37 AM [facility] RDW coefficient of variation 14.1(H) 11.4 - 13.8 % 06/03/2024 2:37 AM [facility] NRBC% auto 0.0 % 06/03/2024 2:37 AM [facility] NRBC Absolute <0.01 <0.01 x10(3)/mc L 06/03/2024 2:37 AM [facility] Neutrophil % 58.4 % 06/03/2024 2:37 AM [facility] Neutrophil Absolute (ANC) - Automated 6.51(H) 1.70 - 6.10 x10(3)/mc L 06/03/2024 2:37 AM [facility] Lymph % 29.9 % 06/03/2024 2:37 AM [facility] Lymph Absolute 3.34(H) 0.90 - 3.20 x10(3)/mc L 06/03/2024 2:37 AM [facility] Monocyte % 8.1 % 06/03/2024 2:37 AM [facility] Monocyte Absolute 0.90 0.30 - 0.90 x10(3)/mc L 06/03/2024 2:37 AM [facility] Eos % 2.4 % 06/03/2024 2:37 AM [facility] Eos Absolute 0.27 0.00 - 0.40 x10(3)/mc L 06/03/2024 2:[address] [facility] Basophil % 0.8 % 06/03/2024 2:[address] [facility] Baso Absolute 0.09 0.00 - 0.10 x10(3)/mc L 06/03/2024 2:[address] [facility] Immature Gran % 0.4 % 2:[address] [facility] Immature Gran Absolute 0.05(H) 0.00 - 0.04 x10(3)/mc L 06/03/2024 2:[address] [facility] Blood VENOUS BLOOD SPECIMEN / Unknown IP Care Team Draw / Unknown 06/03/2024 2:13 AM EDT 06/03/2024 2:31 AM EDT Shahnaz Scanlon MD HEMATOLOGY ORDERABLE S Performing Organization Address City/State/[facility] Co de Phone Number [facility] [place] [address] * Lipid Panel (Reflex Direct LDL) (06/03/2024 2:13 AM EDT) Cholesterol, Total 76 mg/dL 06/03/2024 3:02 AM [facility] Comment: Desirable: < 200 mg/dL Borderline High: 200 - 239 mg/dL High: > or = 240 mg/dL Triglyceride 75 mg/dL 06/03/2024 3:[address] [facility] Comment: Normal: <150 mg/dL Borderline High: 150-199 mg/dL High: 200-499 mg/dL Very High: > or =500 mg/dL HDL Cholesterol 39 mg/dL [facility] Comment:Males: High Risk: <4 0 mg/dL LDL Cholesterol 21 mg/dL 3:02 [facility] Comment: Desirable: <100 mg/dL Above Desirable: 100-129 mg/dL Borderline High: 130-159 mg/dL High: 160-189 mg/dL Very High: > or =190 mg/dL Note: LDL calculation updated to the NIH LDL formula as of 03/07/2024 Non-HDL Cholesterol 37 mg/dL 06/03/2024 3:[address] [facility] Comment: Desirable: <130 mg/dL Above Desirable: 130-159 mg/dL Borderline High: 160-189 mg/dL High: 190-219 mg/dL Very High: > or = 220 mg/dL Blood VENOUS BLOOD SPECIMEN / Unknown IP Care Team Draw / Unknown 06/03/2024 2:13 AM EDT 06/03/2024 2:32 AM EDT [facility] - 06/03/2024 3:02 AM EDT [...] Scanlon MD CHEMISTRY ORDERABLES Performing Organization Address [facility] Co de Phone Number [facility] [place] [address] * (ABNORMAL) APTT (06/03/2024 2:13 AM EDT) [...] MD HEMATOLOGY ORDERABLE S Performing Organization Address [facility]/ZIP Co de Phone Number [facility] [place] [address] * Prothrombin Time (06/03/2024 2:13 AM EDT) [...] HEMATOLOGY ORDERABLE S [facility] [place] [address] * Hepatic Function Panel (06/03/2024 2:13 AM [...] Scanlon MD CHEMISTRY ORDERABLES Performing Organization Address [facility]/ZIP Co de Phone Number [facility] [place] [address] * (ABNORMAL) pro-Brain Natriuretic Peptide (06/03/2024 2:13 AM EDT) NT-proBNP 1,628(H) <=124 pg/mL 06/03/2024 4:[address] [facility] Blood VENOUS BLOOD SPECIMEN / Unknown IP Care Team Draw / Unknown 06/03/2024 2:13 AM EDT 06/03/2024 2:32 AM EDT Shahnaz Scanlon MD CHEMISTRY ORDERABLES Performing Organization Address [facility] Co de Phone Number [facility] [place] [address] * Phosphorus (06/03/2024 2:13 AM EDT) Phosphorus 4.4 2.5 - 4.5 mg/dL 06/03/2024 3:[address] [facility] Blood VENOUS BLOOD SPECIMEN / Unknown IP Care Team Draw / Unknown 06/03/2024 2:13 AM EDT 06/03/2024 2:32 AM EDT Shahnaz Scanlon MD CHEMISTRY ORDERABLES Performing Organization Address City/[facility]/ZIP Co de Phone Number [facility] [place] [address] * EKG 12 Lead (06/03/2024 1:45 AM EDT) Ventricular rate 63 BPM MUSE SYSTEM Atrial Rate 63 BPM MUSE SYSTEM P-R Interval 168 ms MUSE SYSTEM QRS Duration 96 ms MUSE SYSTEM Q-T Interval 400 ms MUSE SYSTEM QTC Calculated (Bezet) 409 ms MUSE SYSTEM Calculated P Stella 65 degrees MUSE SYSTEM Calculated R Stella 70 degrees MUSE SYSTEM Calculated T Stella -86 degrees MUSE SYSTEM INTERPRETATION Atrial-sensed ventricular-paced rhythm Abnormal ECG No previous ECGs available I personally reviewed the tracing and edited the fellows interpretation Confirmed by fellow Sunni Agudelo ([id number]) on 06/04/2024 3:55:40 PM Confirmed by MD Tamia, Stuart Perry ([id number]) on 06/05/2024 11:46:48 AM MUSE SYSTEM 06/03/2024 1:45 AM EDT 06/05/2024 11:46 AM EDT Shahnaz Scanlon MD ECG ORDERABLES MUSE SYSTEM * CARDIAC CATHETERIZATION (06/03/2024 12:42 AM EDT) Anatomical Region Laterality Modality Other Narrative 06/04/2024 2:22 PM EDT ?[facility] ? Cardiac Catheterization/Intervention Report ? Patient Name: Tyson, George L. ? Procedure Date: 06/02/2024 ? A #: [id number] ? Primary Physician: Nuha Shen I ? Case #: [id number] ? File Name: [id number] ? Catheterization Order Number: [id number] ? [facility] ? Final Report [place], [place] ? Patient Name: ? George L. Tyson ? ID#: ?[id number] ? : ?1955 ? Procedure Date: ? June 02, 2024 ? Case #: ? [id number] ? Room: ? 5 ? Case Physician: [...] was designated as ASA Class IV. The [facility] clinical frailty ?scale is 5: Mildly Frail. ? Diagnostic Tests: ?Electrocardiography: ? EKG was assessed by ECG. EKG was Abnormal. EKG showed ST Deviation ? >= 0.5 mm. ?Medications Prior to Procedure: ? Sacubitril and Valsartan, Aspirin, Beta Erik, Statin and ? Thrombolytic (any). ? Indications for Diagnostic Cath: ?The priority of the diagnostic procedure was Emergent. The indication for ?the blood bank laboratory professional visit is ACS less than or equal [...] ?3.5 guiding catheter and a 3.5 Fr [facility] 20 Mhz using Manual ?pullback. ??Imaging was [...] 3.5 guiding catheter and a 3.5 Fr [facility] 20 Mhz using ?Manual pullback. ??Imaging was [...] Procedure Note Nuha Shen MD - 07/20/2024 [facility] Cardiac Catheterization/Intervention Report Patient Name: George Mehta Procedure Date: 06/02/2024 A #: [id number] Primary Physician: Nuha Shen I Case #: [id number] File Name: [id number] Catheterization Order Number: [id number] [facility] FinalReport [place], [place] Patient Name: George Mehta ID#:[id number] :1955 Procedure Date: June 02, 2024 Case [...] was designated as ASA Class IV. The [facility] clinicalfrailty scale is 5: Mildly Frail. Diagnostic Tests: Electrocardiography: EKG was assessed by ECG. EKG was Abnormal. EKG showed STDeviation >= 0.5 mm. Medications Prior to Procedure: Sacubitril and Valsartan, Aspirin, Beta Erik, Statin and Thrombolytic (any). Indications for Diagnostic Cath: The priority of the diagnostic procedure was Emergent. Theindication for the blood bank laboratory professional visit is ACS less than or equal [...] units of heparin were administered. A total [id number] of Omnipaque were opened, 84cc of Omnipaque were administered mai70dl of Omnipaque were wasted. Radiation: Fluoro time [...] 3.5 guiding catheter and a 3.5 Fr [facility] 20 Mhz usingManual pullback. Imaging was successful. [...] 3.5 guiding catheter and a 3.5 Fr [facility] 20 Mhzusing Manual pullback. Imaging was successful. Indication: IVUS performed for pre intervention planning. Findings Pre-Intervention: scattered plaque, calcification and [id number] degrees calcification. Findings Post-Intervention: Stent not imaged [...] OF CARE TEST ORDERABLES Performing Organization Address City/State/[facility] Co de Phone Number [facility] [place] [phone] documented in this encounter Visit Diagnoses Not [...] 2100, Last dose on Fri06/23/24 at 0900, Occ Therapy Asst recommended duration is 3 days., Routine Given [...] 10:46 AM EST 50 mEq sodium chloride (Wood) 0.65 % nasal spray 1 spray 1 [...] No 0824 (Given - Provider: Mary Lou Laen RN) 0812 (Given - Provider: Michelle Orozco [...] Orozco RN)1750 (Given - Provider: Michelle Orozco, JAMEI)2042 (Given - Provider: Christina Myers RN) 0841 [...] 2100, Last dose on Fri06/23/24 at 0900, Occ Therapy Asst recommended duration is 3 days., Routine 2043 [...] oral route first line., Routine sodium chloride (Wood) 0.65 % nasal spray 1 spray 1 [...] 6 hours upon arrival to Unit. Give MA if unable to take PO, Routine Group [...] Routine documented in this encounter Care Teams Litigation Secretary Relationship Specialty Start Date End Date Mauro Berumen MD [address] [place] [address] PCP - General Family Medicine 06/02/24 documented as of this encounter
--- NOTE | 2024-08-13 11:26 | NUR.NOTE ---
Nursing Note: Pt. presented for CR session this morning. Pt. denied any chest pain/pressure, SOB, pain, etc. Pt.'s BP was low upon arriving to CR this morning, but pt. denied any dizziness or lightheadedness. Pt. stated that his fasting BG this morning was 92 prior to breakfast and that he had a snack prior to coming to CR. Pt. stated that he had eaten breakfast and had drank some water this morning. Pt.'s BP s/p treadmill exercise was 83/55 with the automatic BP cuff. Pt. still denied any dizziness or lightheadedness. Pt. was given a glass of water and asked to sit for a while. Pt.'s BP was taken again with the automatic cuff and was still low. Manual BP was obtained; 82/58. Dr. Cardenas was notified. Per Dr. Cardenas, pt. is safe to continue exercising for this morning, but CR staff should continue to monitor pt.'s BP and HR. Pt. was sitting in the CR gym with one RN, while the other RN spoke to Dr. Cardenas. Upon returning to the CR gym after speaking with Dr. Cardenas, pt. spoke with the RN who had spoken to Dr. Cardenas and requested that his BG be checked with the hospital machine. Nursing staff unable to obtain pt.'s BG due to equipment issues with the glucometer. Pt. stated that he was starting to feel ...fuzzy, and that he was having vision changes, and that his vision felt ...blurry. Based on pt.'s signs and symptoms, CR nursing staff decided to transport pt. to the ED. One RN wheeled pt. to the ED triage, while the other RN called report to the ED charge nurse, Jackelyn Azevedo RN.
--- OUTSIDE RECORDS SUMMARY | 2024-08-13 11:26 | XMS_ITS | Encounter Summary ---
Author Organization [facility] Address [facility] [place] [address] Care Team Providers Care Grain Combine Driver Name Role Phone Mauro Berumen MD Primary Care Provider [phone] Encounter Details Date Type Department Care Team (Latest Contact Info) Description 06/03/2024 Travel Social History Tobacco Use Types Packs/Day Years Used Date Smoking Tobacco: Every Day Cigarettes Smokeless Tobacco: Never [facility] Utilities Answer Date Recorded In [...] any time in the past 12 m [facility], were you homeless or living [...] on filedocumented in this encounter Care Teams Grain Combine Driver Relationship Specialty Start Date End Date Mauro Berumen MD [address] [place] [id number] PCP - General Family Medicine 06/02/24 documented as of this encounter
--- OUTSIDE RECORDS SUMMARY | 2024-08-13 11:26 | XMS_ITS | Encounter Summary ---
Author Organization [facility] Address [facility] [place] [address] Care Team Providers Care Environmental Engineering Intern Name Role Phone Mauro Berumen MD Primary Care Provider [phone] Encounter Details Date Type Department Care Team (Late st Contact Info) Description 06/03/2024 Orders Only Cardiology [facility] [place] [phone] Unknown None Social History Tobacco Use Types Packs/Day Years Used Date Smoking Tobacco: Every Day Cigarettes Smokeless Tobacco: Never [facility] Utilities Answer Date Recorded In the past 12 months has th e electric, gas, oil, or water [email or web address] threatened to shut off services in your [...] in the past 12 m [facility], were you homeless or living [...] AM EDT Narrative 06/03/2024 10:32 AM EDT [address] [place] [address] ? Echocardiogram Report Name: ARTURO NICHOLS ?Study Date: 06/03/2024 02:23 AM : 1955 Age: 69 yrs Gender: Male Performed By: Sascha Silva MD Reason For Study: STEMI Interpreting Fellow: Sascha Silva. Interpretation Summary Limited echo performed by fellow heavy antiarmor weapons infantryman to assess LV function. Left ventricle is mild to moderately dilated. Left ventricular ejection fraction is estimated visually at 25%. There is global dyskinesia with mid-basilar posterior-posterolateral akinesis. Right ventricle is not well seen. RV systolic function is probably normal. There is no prior echo for comparison. Procedure Limited - 93840. Suboptimal quality. Ventricular paced. Left Ventricle Left [...] Note Jonnie Jordan MD - 06/03/2024 [address] [place] [address] Echocardiogram Report Name: ARTURO NICHOLS Study Date: 06/03/2024 02:23AM : 1955 Age: 69 yrs Gender: Male Performed By: Sascha Silva MD Reason For Study: STEMI Interpreting Fellow: Sascha Silva. Interpretation Summary Limited echo performed by fellow heavy antiarmor weapons infantryman to assess LV function. Left ventricle is mild to moderately dilated. Left ventricular ejectionfraction is estimated visually at 25%. There is global dyskinesia withmid-basilar posterior-posterolateral akinesis. Right ventricle is not well seen. RV systolic function is probablynormal. There is no prior echo for comparison. Procedure Limited - [id number]. Suboptimal quality. Ventricular paced. Left Ventricle Left [...] on filedocumented in this encounter Care Teams Environmental Engineering Intern Relationship Specialty Start Date End Date Mauro Berumen MD [address] [place] [address] PCP - General Family Medicine 06/02/24 documented as of this encounter
--- OUTSIDE RECORDS SUMMARY | 2024-08-13 11:26 | XMS_ITS | Encounter Summary ---
Author Organization [facility] Address [facility] [place] [address] Care Team Providers Care Block Cleaner Name Role Phone Mauro Berumen MD Primary Care Provider [phone] Encounter Details Date Type Department Care Team (Late st Contact Info) Description 06/08/2024 Ophth Exam [place] [address] Yumiko De La Torre, COT Social History [...] any time in the past 12 m [facility], were you homeless or living in [...] on filedocumented in this encounter Care Teams Block Cleaner Relationship Specialty Start Date End Date Mauro Berumen MD [address] [place] [address] PCP - General Family Medicine 06/02/24 documented as of this encounter
--- OUTSIDE RECORDS SUMMARY | 2024-08-13 11:26 | XMS_ITS | Encounter Summary ---
Author Organization [facility] [place] [address] Care Team Providers Care Nitrocellulose Operator Name Role Phone Mauro Berumen MD Primary Care Provider [phone] Reason for Visit * Auth/Cert Specialty Diagnoses / Procedures Referred By Carroll lopez Referred To Contact Diagnoses STEMI (ST elevation myocardial infarction) STEMI Procedures CARDIAC CATHETERIZATION EMERGENCY Delroy Monterroso MD [facility] [place] [address] [facility] Referral ID Status Reason Start Date Expiration Date Visits Re quested Visits Authorized [id number] 1 1 Encounter Details Date Type Department Care Team (Late st Contact Info) Description 06/13/2024 9:00 AM EST - 06/13/2024 10:00 AM EST [place] [address] Nuha Shen MD [facility] [place] [address] CARDIAC CATHETERIZATION Social History Tobacco Use Types Packs/Day Years Used Date Smoking Tobacco: Every Day Cigarettes Smokeless Tobacco: Never Tobacco Cessation:Ready to Q uit: No; Counseling Given: Yes [facility] Utilities Answer Date Recorded In the past 12 months has Related Content Database (RCDb), gas, oil, or water company threatened to [...] any time in the past 12 m [facility], were you homeless or living in a nursing home (including now)? No 06/03/2024 DH IPV [...] Patient Age: 69 y.o. Birthdate: 1955 Language: Faroese Race: Choose not to Disclose Ethnicity: Not nor Admit Date: 06/02/2024 Discharge Date: 06/21/2024 Attending Physician: Bobby Loja MD Follow-up Recommendations for Providers: Please continue routine management of cardiovascular risk factors including blood pressure, lipids,glucose, etc. Please note any changes to medications. Patient to follow up with PCP, Mauro Berumen MD, in 1-2 weeks. Patient to follow up with Mathematician Research, Kristen Cardenas in 2-3 weeks. Patient to follow up with Cardiac Surgeon, Dr. Bobby Loja, in 4 wks. Inpatient Provider Contact Information: [facility] Section of Cardiac [place] [facility] [address] FAX [phone] Discharge Diagnoses (Hospital Problems) Primary Diagnoses: STEMI [...] performed by Bobby Loja MD [facility] OR PRO CABG, ARTERY-VEIN, TWO N/A 06/14/2024 @CABG, TWO VENOUS GRAFTS & ARTERIAL GRAFT (WRVU 7.93) performed by Bobby Loja MD at [facility] OR PRO ENDOSCOPY W/VIDEO-ASST VEIN HARVEST, CABG N/A 06/14/2024 ENDOSCOPIC HARVEST VEIN(S) FOR CABG (WRVU 0.31) performed by Bobby Loja MD at [facility] MAIN OR PRO EXC MEDIASTINAL TUMOR N/A 06/14/2024 @EXCISION OF MEDIASTINAL TUMOR (WRVU 19.55) performed by Bobby Loja MD at [facility] MA[facility] OR PRO INSERT INTRA-AORTIC BALLOON ASST DEVICE PERCUTANEOUS N/A 06/13/2024 @INSERTION OF IABP,PERCUTANEOUS (WRVU 4.84) performed by Nuha Shen MD at [facility] CATH LABS PRO UNLISTED CARDIAC SURG PROCEDURE N/A 06/14/2024 EXPLORATION AND OVERSEW ATRIAL APPENDAGE (WRVU 5.94) performed by Bobby Loja MD at [facility] [place] Prior To Admission Medications Medications [...] y.o. male with a PMHx of previous PR s/p PCI x3, ICM/HFrEF (LVEF 30%) s/p ICD, DMII, HTN, HLD, remote melanoma, and smoker who presented to [facility] last night via EMS after developing acute, severe chest pain while watching TV. Patient was ruled in for STEMI, given TNK, ASA, plavix, heparin gtt, and sent to [facility] for coronary angiography. [facility] demonstrated severely calcified left coronary system with notable LCx 75/80% lesions and GLAZE SPRAYER OM1 with ISR with collateral retrograde filling, [...] Hospital Course: George Mehta was admitted to [facility] on 06/02/2024 via the CardiologyService with an anterior STEMI after receiving lytics at OSH. He was brought to the labor specialist which showed severely calcified left coronary system with notable LCx 75/80% lesions and GLAZE SPRAYER OM1 with ISR with collateral retrograde filling, [...] 2 tablespoons of dried fruit. Milk and pw-lqsyb-voqfx yogurt have 15 grams of carbs in a serving. A serving is 1 cup of milk or 3/4 cup (6 oz) of fv-wlknv-gtfhs yogurt. Starchy vegetables have 15 grams of [...] Bobby Loja and/or the Cardiac Surgery Physician Adjudication Specialist Team may be reached at . Weight: [...] Dr. Bobby Loja. You may use a [place] Track or treadmill but avoid any pulling [...] friends, go to a movie, go to restoration, etc. Heavy activities: No hunting, skiing, jogging, [...] should resume a low fat, low cholesterol, [place] Heart Association Diet/Diabetic diet. Driving: No driving [...] while being managed by your PCP and/or Mathematician Research. For future medication refills, please refer to your PCP and/or Mathematician Research after your discharge from our service. Thank you REMOVE CHEST TUBE SUTURES ON OR AFTER 06/24/2024 Home oxygen therapy: N/A Follow up appointments: You should follow up with your PCP, Mauro Berumen MD, in 1-2 weeks. You should follow up with your Mathematician Research, Dr CARDENAS. You have an appointment with your Cardiac Surgeon, Dr. Bobby Loja, in 4 wks. Cardiac Rehabilitation: George Mehta was seen today regarding participation in the outpatient Phase 2 Cardiac Rehabilitation at [facility]. The patient agrees to a referral to this program. The referral will be sent at discharge and the patient should be contacted by the program within 1-2 weeks from discharge. Future Appointments and Orders Future Orders Complete By Expires Referral to Cardiac Rehab [[id number] Custom] As directed Process Instructions: If no progress note charted, please enter Clinical details in comments. Scheduling Instructions: Questions: My question or request is: s/p CABG- cardiac rehab at [facility] Referral to Home Health [REF34 Custom] As directed Process Instructions: If no progress note charted, please enter Clinical details in comments. Scheduling Instructions: Comments: Please evaluate George Mehta for admission to Home Health. [address] [facility] [address] (home) Date of : 1955 Inpatient DOCUMENTATION FOR VNA SERVICES (INCLUDING THOSE PATIENTS WITH MEDICARE COVERAGE REQUIRINGHOME VNA SERVICES AND/OR HOSPICE SERVICES) PATIENT'S LOCATION: George Mehta [address] [facility] [address] (home) Telephone Information: Regional Sales Coordinator's Name: self In discussion with the attending physician, it is certified that this patient is under their care and that they, or a Nurse Practitioner, or Physician Adjudication Specialist who is working directly with them, hada [...] for services as follows: HOME HEALTH AGENCY: [facility]. [address] [place] [id number] RN orders: Cardiopulmonary assessment, incisional assessment, assess [...] issues please call the Cardiology Office at [phone] FOR MEDICARE ONLY: (please delete this section [...] care: As above. Signed: KEILA HANLEY APRN [facility] Section of Cardiac Surgery [facility] [address] FAX [phone] Date: 06/21/2024 CC: MD Antonino Tinajero Joshua R, PA [address] [place] [address] [place] [address] documented in this encounter Discharge Instructions * [...] 2 tablespoons of dried fruit. Milk and me-grlfl-tktye yogurt have 15 grams of carbs in a serving. A serving is 1 cup of milk or 3/4 cup (6 oz) of ih-ruzor-qwasb yogurt. Starchy vegetables have 15 grams of [...] Bobby Loja and/or the Cardiac Surgery Physician Adjudication Specialist Team may be reached at . Weight: [...] Dr. Bobby Loja. You may use a [place] Track or treadmill but avoid any pulling [...] friends, go to a movie, go to restoration, etc. Heavy activities: No hunting, skiing, jogging, [...] should resume a low fat, low cholesterol, [place] Heart Association Diet/Diabetic diet. Driving: No driving [...] while being managed by your PCP and/or Mathematician Research. For future medication refills, please refer to your PCP and/or Mathematician Research after your discharge from our service. Thank you REMOVE CHEST TUBE SUTURES ON OR AFTER 06/24/2024 Home oxygen therapy: N/A Follow up appointments: You should follow up with your PCP, Mauro Berumen MD, in 1-2 weeks. You should follow up with your Mathematician Research, Dr CARDENAS. You have an appointment with your Cardiac Surgeon, Dr. Bobby Loja, in 4 wks. Cardiac Rehabilitation: George Mehta was seen today regarding participation in the outpatient Phase 2 Cardiac Rehabilitation at [facility]. The patient agrees to a referral [...] of your patient's venous access was performed [facility] theVascular Access Service. The following tasks [...] of your patient's venous access was performed [facility] theVascular Access Service. The following tasks [...] or weekly) [] Other * Alejandra Baumann, FOOD ORDER EXPEDITER - 06/21/2024 7:05 AM EST Follow Up [...] MARIALUISA clipping. PMH of chronic HFrEF s/p MORNING NEWS PRODUCER/ICD, IDDM2, HTN, HLD, remote melanoma, active smoker. [...] 2 tablespoons of dried fruit. Milk and qa-fuixs-ezelo yogurt have 15 grams of carbs in a serving. A serving is 1 cup of milk or 3/4 cup (6 oz) of uw-dlhtk-jorwz yogurt. Starchy vegetables have 15 grams of [...] cheese, and peanut butter. Alejandra Baumann APRN [facility] Endocrinology Diabetes Management Pager [phone] Weekends please page [phone] * Eric Packre PA - 06/20/2024 7:44 AM EST Cardiac Surgery Progress Note George Mehta is a 69 y.o. male with a history of CAD s/p multiple PCI who presented with an anterior STEMI and was given lytics. Cath showed MV CAD without culprit vessel. He is now 6 Days Post-OpCABGx3 and MARIALUISA clipping. PMH of chronic HFrEF s/p MORNING NEWS PRODUCER/ICD, IDDM2, HTN, HLD, remote melanoma, active smoker. 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 #IDDM2 DM team following Lantus, SSI Carb controlled diet #Active smoker Duoneb prn Dispo: Floor, full code, home when ready Discussed with attending surgeon on rounds this morning. 06/20/2024 Between the hours of 1800 - 0600 and on the weekends please page [phone]. * Alejandra Baumann, JOSÉ ANTONIO - 06/20/2024 7:21 AM EST Follow Up Diabetes Consult Patient Interview Blood glucose values and insulin use reviewed. manager strategic sourcing BG to 59 despite decrease in glargine [...] MARIALUISA clipping. PMH of chronic HFrEF s/p MORNING NEWS PRODUCER/ICD, IDDM2, HTN, HLD, remote melanoma, active smoker. manager strategic sourcing BG to 59 despite decrease in glargine [...] based on ISF 20 Alejandra Baumann APRN [facility] Endocrinology Diabetes Management Pager [phone] Weekends please page [phone] Insulin Discharge Instructions Preliminary Diabetes Discharge Instructions [...] 2 tablespoons of dried fruit. Milk and nl-unmfo-acrxs yogurt have 15 grams of carbs in a serving. A serving is 1 cup of milk or 3/4 cup (6 oz) of bp-zeonr-kulws yogurt. Starchy vegetables have 15 grams of [...] MARIALUISA clipping. PMH of chronic HFrEF s/p MORNING NEWS PRODUCER/ICD, IDDM2, HTN, HLD, remote melanoma, active smoker. 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 Tx to floor #IDDM2 DM team following pre-op Lantus, SSI Carb controlled diet #Active smoker Duoneb prn Dispo: Floor status, full code Discussed with attending surgeon on rounds this morning. Jeffy Hood MD 06/19/2024 Between the hours of 1800 - 0600 and on the weekends please page [phone]. * Alejandra Baumann, FOOD ORDER EXPEDITER - 06/19/2024 7:09 AM EST Follow Up Diabetes Consult Patient Interview Blood glucose values and insulin use reviewed. Jardiance added back yesterday, pipelayer low BGto 51. Glargine reduced to 45 [...] MARIALUISA clipping. PMH of chronic HFrEF s/p MORNING NEWS PRODUCER/ICD, IDDM2, HTN, HLD, remote melanoma, active smoker. Jardiance added back yesterday. manager strategic sourcing low BG to 51. Glargine reduced to [...] 2 tablespoons of dried fruit. Milk and bd-fkhdg-qnoup yogurt have 15 grams of carbs in a serving. A serving is 1 cup of milk or 3/4 cup (6 oz) of si-zmnhk-mnkag yogurt. Starchy vegetables have 15 grams of [...] cheese, and peanut butter. Alejandra Baumann APRN [facility] Endocrinology Diabetes Management Pager [phone] Weekends please page [phone] * Hilda Resendez PTA - 06/18/2024 9:19 AM EST Physical Therapy Note 2 Patient profile: George Mehta is a 69 y.o. male with a history of CAD s/p multiple PCI who presented with an anterior STEMI and was given lytics. Cath showed MV CAD without culprit vessel. He is now 1 Day Post-Op CABGx3 and MARIALUISA clipping. PMH of chronic HFrEF s/p MORNING NEWS PRODUCER/ICD, IDDM2, HTN, HLD, remote melanoma, active smoker. Interval History: Per last cardiac surgery note on 06/18/2024 Cr improved 1.4 on lasix 40 iv bid -1.5L, made 2.5L urine Coreg, entresto restarted Floor status Social History: Pt lives with his in a 1 level apartment with no steps to enter. 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 He drives. He sleeps in a recliner at baseline. Precautions/Special Considerations: Sternal precautions, PIV, at risk to fall, PPM Mobility and Positioning Recommendations: Pt to utilize no AD, supervision for ambulation and transfers w/ property staff accountant as able. Please encourage up to chair [...] least restrictive device Time IN / OUT: 0066-4062 Total Time: 11 minutes; TEF 1 Hilda eRsendez PTA Pager: [phone] Physical Therapy Inpatient Rehabilitation Department * Keila Hanley, FOOD ORDER EXPEDITER - 06/18/2024 8:48 AM EST Cardiac Surgery Progress Note George Mehta is a 69 y.o. male with a history of CAD s/p multiple PCI who presented with an anterior STEMI and was given lytics. Cath showed MV CAD without culprit vessel. He is now 4 Days Post-OpCABGx3 and MARIALUISA clipping. PMH of chronic HFrEF s/p MORNING NEWS PRODUCER/ICD, IDDM2, HTN, HLD, remote melanoma, active smoker. 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, will get name for f/up appt Tx to floor #IDDM2 DM team following pre-op Lantus, SSI Carb controlled diet ? Restarting jardiance #Active smoker Duoneb prn Dispo: CVCC, Full code, tx to floor Discussed with attending surgeon on rounds this morning. KEILA HANLEY APRN 06/18/2024 Between the hours of 1800 - 0600 and on the weekends please page [phone]. * Alejandra Baumann, JOSÉ ANTONIO - 06/17/2024 [...] MARIALUISA clipping. PMH of chronic HFrEF s/p MORNING NEWS PRODUCER/ICD, IDDM2, HTN, HLD, remote melanoma, active smoker. [...] based on ISF 20 Alejandra Baumann APRN [facility] Endocrinology Diabetes Management Pager [phone] Weekends please page [phone] 35 minutes were spent over the course [...] MARIALUISA clipping. PMH of chronic HFrEF s/p MORNING NEWS PRODUCER/ICD, IDDM2, HTN, HLD, remote melanoma, active smoker. [...] 0600 and on the weekends please page [phone]. * Raymond Carlton MD - 06/16/2024 1:11 PM EST CARDIAC CRITICAL CARE ATTENDING STAFF PROGRESS NOTE Patient seen and examined. George Mehta is a 69 y.o. male with: Active Hospital Problems Diagnosis STEMI (ST elevation myocardial infarction) Cardiac resynchronization therapy defibrillator (MORNING NEWS PRODUCER-D) - Medtronic Amplia Cardiomyopathy, ischemic Acute on chronic heart failure with reduced ejection fraction (HFrEF, <= 40%) Coronary artery disease involving [place] coronary artery of [place] heart without angina pectoris Type 2 diabetes [...] encouragement provided Patient screened for f/u and technical report writer met pt at bedside. Pt states [...] unless consulted in the interim. RICHA Simmons Rn Intern * Octaviano Horvath PA - 06/16/2024 8:07 AM EST Cardiac Surgery Progress Note George Mehta is a 69 y.o. male with a history of CAD s/p multiple PCI who presented with an anterior STEMI and was given lytics. Cath showed MV CAD without culprit vessel. He is now 2 Days Post-OpCABGx3 and MARIALUISA clipping. PMH of chronic HFrEF s/p MORNING NEWS PRODUCER/ICD, IDDM2, HTN, HLD, remote melanoma, active smoker. [...] 0600 and on the weekends please page [phone]. * Jono Fernandez PT - 06/15/2024 4:09 PM EST Physical Therapy Evaluation Patient profile: George Mehta is a 69 y.o. male with a history of CAD s/p multiple PCI who presented with an anterior STEMI and was given lytics. Cath showed MV CAD without culprit vessel. He is now 1 Day Post-Op CABGx3 and MARIALUISA clipping. PMH of chronic HFrEF s/p MORNING NEWS PRODUCER/ICD, IDDM2, HTN, HLD, remote melanoma, active smoker. 24h Events: From OR on Dobutamine IABP removed Bedrest ended ~2100, sedation weaned Extubated ~0200 Dobutamine weaned to 1 this morning, CI 2.6, shut off and repeat CI 2.4 Social History: Pt lives with his in a 1 level apartment with no steps to enter. 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 He drives. He [...] outlined inthis evaluation. JONO FERNANDEZ, PT Pager: [phone] Physical Therapy Inpatient Rehabilitation Department Time IN / OUT: [id number] Total Time: 33 (eval) minutes * Alejandra Baumann, FOOD ORDER EXPEDITER - 06/15/2024 11:39 AM EST Follow Up Diabetes Consult Patient Interview Blood glucose values and insulin use reviewed. Pt remains on an insulin drip today following [id number] MARIALUISA clipping. George continues to complain of [...] MARIALUISA clipping. PMH of chronic HFrEF s/p MORNING NEWS PRODUCER/ICD, IDDM2, HTN, HLD, remote melanoma, active smoker. [...] based on ISF 20 Alejandra Baumann APRN [facility] Endocrinology Diabetes Management Pager [phone] Weekends please page [phone] 50 minutes were spent over the course [...] elevation myocardial infarction) Cardiac resynchronization therapy defibrillator (MORNING NEWS PRODUCER-D) - Medtronic Amplia Cardiomyopathy, ischemic Acute on chronic heart failure with reduced ejection fraction (HFrEF, <= 40%) Coronary artery disease involving [place] coronary artery of [place] heart without angina pectoris Type 2 diabetes [...] with h/o DM, CAD with prior PCI, MORNING NEWS PRODUCER-D who presented with crushing chest pain, found [...] MARIALUISA clipping. PMH of chronic HFrEF s/p MORNING NEWS PRODUCER/ICD, IDDM2, HTN, HLD, remote melanoma, active smoker. [...] sternotomy dressing CDI, saphenectomy dressing CDi Tubes/Lines/Drains: [place], RIJ, A-line, Mediastinal marcos and bilateral pleural [...] 0600 and on the weekends please page [phone]. * Yoli Donaldson, MATERIAL EXPEDITOR - 06/15/2024 5:35 AM EST AMV Protocol: [...] with h/o DM, CAD with prior PCI, MORNING NEWS PRODUCER-D who presented with crushing chest pain, found [...] 1.5 PTT 31 T/L/D Barr ETT CVL [place] Pacing wires ASSESSMENT, MANAGEMENT, and DECISION MAKIN y.o. male with h/o DM, CAD with prior PCI, MORNING NEWS PRODUCER-D who presented with crushing chest pain, found [...] 0600 and on the weekends please page [phone]. * Chloé Cortez - 06/14/2024 9:36 AM [...] unless consulted in the interim. Chloé Cortez Asic Verification Engineer * Jim Benites MD - 06/13/2024 1:15 [...] - Mildly dilated left ventricle size with kqmuytbf-yb-nkfaayih decreased LV systolic function. LV ejection fraction [...] ACS/crushing chest pain, likely due to lateral PR, found to have surgical CAD with viability [...] (abstinent since admission), ASCVD with multiple prior PR and PCIs, ICM/HFrEF LVEF 30% (all territories [...] elevation myocardial infarction) Cardiac resynchronization therapy defibrillator (MORNING NEWS PRODUCER-D) - Medtronic Amplia Cardiomyopathy, ischemic Acute on chronic heart failure with reduced ejection fraction (HFrEF, <= 40%) Coronary artery disease involving [place] coronary artery of [place] heart without angina pectoris Type 2 diabetes [...] PCP: Mauro Berumen MD PCP phone number: [phone] Date of Admission: 06/02/2024 ( Hospital Day 10 days ) Attending:Ethel Carrillo MD ID: 69 y.o. male with a h/o DM type 2, HTN, HLD, current smoker (2-3 cigarettes/day), HFrEF with anICD for low EF (~30%), and CAD with prior PR x3 with JENNA placed in [facility], presented to [facility] with 1 hour of retrosternal CP (05/13) while watching TV, found to have STEMI. Active Problems: Active Hospital Problems Diagnosis STEMI (ST elevation myocardial infarction) Cardiac resynchronization therapy defibrillator (MORNING NEWS PRODUCER-D) - Medtronic Amplia Cardiomyopathy, ischemic Acute on chronic heart failure with reduced ejection fraction (HFrEF, <= 40%) Coronary artery disease involving [place] coronary artery of [place] heart without angina pectoris Type 2 diabetes [...] in the last 7068 hours. Invalid input(s): [id number] Recent Labs 06/12/24 0425 06/11/24 2356 06/11/24 2025 06/11/24 1624 06/11/24 1108 06/11/24 0748 06/11/24 0357 06/11/24 0050 06/10/24 1922 06/10/24 1735 06/10/24 1125 06/10/24 0746 POCGLU 132 135 210* 81 233* 184 132 144 236* 123 216* 206* Heme No results for input(s): LDH, HAPTOGLOBIN, URICACID in the last 168 hours. ABG (Arterial Blood Gas) No results found for: PHART, PO2ART, OHF0AVJ, [id number] Microbiology: Microbiology Results (Last 30 days) No results found for the last 720 hours. Imaging: Results for orders placed or performed during the hospital encounter of 06/02/24 XR Chest One View (Exam End: 06/03/2024 2:41 AM) Result Value WORKSTATION ID [id number] Impression No radiographically evident acute cardiopulmonary process. Thank you for letting us participate in the care of this patient. If you are a health care provider and have any questions regarding this report, please contact the number below. For patients who have questions please contact the health caretaker that requested your imaging first. Cardiac Morphology Function wwo Contrast (Exam End: 06/07/2024 1:10 PM) Result Value WORKSTATION ID [id number] Impression - Findings consistent with an ischemic [...] - Mildly dilated left ventricle size with oxgnvilq-uj-wzjkrzaz decreased LV systolic function. LV ejection fraction [...] who have questions please contact the health caretaker that requested your imaging first. Chest wo Contrast (Generic) (Exam End: 06/03/2024 4:33 PM) Result Value WORKSTATION ID [id number] Impression Cardiomegaly. Biventricular ICD leads in place. Thank you for letting us participate in the care of this patient. If you are a health care provider and have any questions regarding this report, please contact the number below. For patients who have questions please contact the health caretaker that requested your imaging first. Chest PA & Lateral (Generic) (Exam End: 06/07/2024 7:03 AM) Result Value WORKSTATION ID [id number] Impression Biventricular ICD leads intact and in [...] who have questions please contact the health caretaker that requested your imaging first. : Limited echo performed by fellow refrigeration unit repairer to assess LV function. Left ventricle is [...] ischemic cardiomyopathy with HFrEF (~30% EF), prior PR with stents, DM type 2, HTN, HLD, active smoker, presented with anterior STEMI. Angiography revealed severe multivessel CAD with extensive calcification and YUE 3 flow in all vessels, without a clear culprit lesion. Currently pain-free after TNK, Plavix, ASA, and heparin, with mildly elevated LVEDP at 40 mmHg and mild volume overload. 06/12/24: Patient stable, asymptomatic. Plan to go to labor specialist for balloon pump tomorrow, then willgo to [...] days: 9 Code status: FULL CODE Dain oClón MD Cardiology, M1-S2, Pager #[phone] 06/12/24 Associated attestation - Ethel Carrillo MD [...] (abstinent since admission), ASCVD with multiple prior PR and PCIs, ICM/HFrEF LVEF 30% (all territories [...] of two midnights or is on the [facility] inpatient only procedure list (status C) due to: acute myocardial infarction requiring titration of IV medication and fluid monitoring and decompensated congestive heart failure requiring IV medication and fluid monitoring Ethel Carrillo MD Cardiovascular Medicine Personal Pager [phone] 06/12/2024 9:12 PM * Alejandra Baumann, FOOD ORDER EXPEDITER - 06/11/2024 4:21 PM EST Images from [...] too aggressive, suggest ICR 1:6 (rule of [id number]/81 = 6.25). George is up and walking [...] ischemic cardiomyopathy with HFrEF (~30% EF), prior PR with stents, DM type 2, HTN, HLD, [...] on placing this weekend and transfer to [facility], likely Friday. With lower BG following [...] ac, metformin 1000mg BID Alejandra Baumann APRN [facility] Endocrinology Diabetes Management Pager [phone] Weekends please page [phone] 35 minutes were spent over the course [...] PCP: Mauro Berumen MD PCP phone number: [phone] Date of Admission: 06/02/2024 ( Hospital Day 9 days ) Attending:Melida Valdes MD ID: 69 y.o. male with a h/o DM type 2, HTN, HLD, current smoker (2-3 cigarettes/day), HFrEF with anICD for low EF (~30%), and CAD with prior PR x3 with JENNA placed in [place], Melanoma, PAD, presented to [facility] with 1 hour of retrosternal CP (05/13) while watching TV, found to have STEMI. Active Problems: Active Hospital Problems Diagnosis STEMI (ST elevation myocardial infarction) Cardiac resynchronization therapy defibrillator (MORNING NEWS PRODUCER-D) - Medtronic Amplia Cardiomyopathy, ischemic Acute on chronic heart failure with reduced ejection fraction (HFrEF, <= 40%) Coronary artery disease involving [place] coronary artery of [place] heart without angina pectoris Type 2 diabetes [...] in the last 7068 hours. Invalid input(s): [id number] Recent Labs 06/11/24 0357 06/11/24 0050 06/10/24 1922 06/10/24 1735 06/10/24 1125 06/10/24 0746 06/10/24 0423 06/10/24 0005 06/09/24 2036 06/09/24 1727 06/09/24 1152 06/09/24 0810 POCGLU 132 144 236* 123 216* 206* 154 125 197 174 211* 209* Heme No results for input(s): LDH, HAPTOGLOBIN, URICACID in the last 168 hours. ABG (Arterial Blood Gas) No results found for: PHART, PO2ART, OSZ7JRW, JMA9QXJ Microbiology: Microbiology Results (Last 30 days) No results found for the last 720 hours. Imaging: Results for orders placed or performed during the hospital encounter of 06/02/24 XR Chest One View (Exam End: 06/03/2024 2:41 AM) Result Value WORKSTATION ID [id number] Impression No radiographically evident acute cardiopulmonary process. Thank you for letting us participate in the care of this patient. If you are a health care provider and have any questions regarding this report, please contact the number below. For patients who have questions please contact the health caretaker that requested your imaging first. Cardiac Morphology Function wwo Contrast (Exam End: 06/07/2024 1:10 PM) Result Value WORKSTATION ID [id number] Impression - Findings consistent with an ischemic [...] - Mildly dilated left ventricle size with otcfdztb-pl-vntqamjn decreased LV systolic function. LV ejection fraction [...] who have questions please contact the health caretaker that requested your imaging first. Chest wo Contrast (Generic) (Exam End: 06/03/2024 4:33 PM) Result Value WORKSTATION ID [id number] Impression Cardiomegaly. Biventricular ICD leads in place. Thank you for letting us participate in the care of this patient. If you are a health care provider and have any questions regarding this report, please contact the number below. For patients who have questions please contact the health caretaker that requested your imaging first. Chest PA & Lateral (Generic) (Exam End: 06/07/2024 7:03 AM) Result Value WORKSTATION ID [id number] Impression Biventricular ICD leads intact and in [...] who have questions please contact the health caretaker that requested your imaging first. : Limited echo performed by fellow refrigeration unit repairer to assess LV function. Left ventricle is [...] Infusions: heparin (porcine) infusion 1,400 Units/hr (06/10/24 8276) PRN Meds:.insulin lispro, glucose 40% oral geL [...] ischemic cardiomyopathy with HFrEF (~30% EF), prior PR with stents, DM type 2, HTN, HLD, [...] on Friday, likely Friday then transfer to [facility] #HFrEF (Ischemic Cardiomyopathy): -Monitor I&O and [...] CODE Dain Colón MD Cardiology, M1-S2, Pager #[phone] 06/11/24 Associated attestation - Ethel Carrillo MD [...] (abstinent since admission), ASCVD with multiple prior PR and PCIs, ICM/HFrEF LVEF 30% (all territories [...] of two midnights or is on the [facility] inpatient only procedure list (status C) due to: acute myocardial infarction requiring titration of IV medication and fluid monitoring and decompensated congestive heart failure requiring IV medication and fluid monitoring Ethel Carrillo MD Cardiovascular Medicine Personal Pager [phone] 06/11/2024 9:35 PM * Hilary Belle - 06/10/2024 12:39 PM EST Nutrition Services Note George Mehta is a 69 y.o. male Reason for intervention: hospital day 9 Nutrition Plan: Continue diet order: 60/60/75 CHO Level 2 Encourage good PO Lasix and Insulin noted Monitor weight Patient scheduled for a hospital day 9 nutrition evaluation. Poultry Veterinarian attempted to meet with pt at bedside [...] unless consulted in the interim. Hilary Belle Rn Intern * Mariia Montero RN - 06/10/2024 12:23 PM EST I have met with the patient to: discuss discharge planning needs. provide the [facility], Office of Care Management letter from the Auditing Specialist pertaining to rehab referrals. provide a letter describing our affiliations within the [facility] and educate about their right to choose where referrals are sent. provide a list of Home Health Agencies / Durable Medical Equipment vendors which serve their preferred geographic area. provided patient with [facility] Star Quality Rating handout. They have requested referrals to: [facility]. [address] [place] [id number] RN / PT Anticipated d/c date: 06/20/24 Note routed to a Assembling Inspector who will communicate referrals to facilities and provide any required information. * Dain Colón MD - 06/10/2024 7:17 AM EST Images from the original note were not included. . Cardiology Progress Note Patient info: Name: George Mehta : 1955 PCP: Mauro Berumen MD PCP phone number: [phone] Date of Admission: 06/02/2024 ( Hospital Day 8 days ) Attending:Melida Valdes MD ID: 69 y.o. male with a h/o DM type 2, HTN, HLD, current smoker (2-3 cigarettes/day), HFrEF with anICD for low EF (~30%), and CAD with prior PR x3 with JENNA placed in [place], Melanoma, PAD, presented to [facility] with 1 hour of retrosternal CP (05/13) while watching TV, found to have STEMI. Active Problems: Active Hospital Problems Diagnosis STEMI (ST elevation myocardial infarction) Cardiac resynchronization therapy defibrillator (MORNING NEWS PRODUCER-D) - Medtronic Amplia Cardiomyopathy, ischemic Acute on chronic heart failure with reduced ejection fraction (HFrEF, <= 40%) Coronary artery disease involving [place] coronary artery of [place] heart without angina pectoris Type 2 diabetes [...] in the last 7068 hours. Invalid input(s): [id number] Recent Labs 06/10/24 0423 06/10/24 0005 06/09/24 2036 06/09/24 1727 06/09/24 1152 06/09/24 0810 06/09/24 0440 06/09/24 0034 06/08/24 2027 06/08/24 1616 06/08/24 1235 06/08/24 0810 POCGLU 154 125 197 174 211* 209* 131 186 176 159 226* 190 Heme No results for input(s): LDH, HAPTOGLOBIN, URICACID in the last 168 hours. ABG (Arterial Blood Gas) No results found for: PHART, PO2ART, RLY7GTI, EAE6DUW Microbiology: Microbiology Results (Last 30 days) No results found for the last 720 hours. Imaging: Results for orders placed or performed during the hospital encounter of 06/02/24 XR Chest One View (Exam End: 06/03/2024 2:41 AM) Result Value WORKSTATION ID [id number] Impression No radiographically evident acute cardiopulmonary process. Thank you for letting us participate in the care of this patient. If you are a health care provider and have any questions regarding this report, please contact the number below. For patients who have questions please contact the health caretaker that requested your imaging first. Cardiac Morphology Function wwo Contrast (Exam End: 06/07/2024 1:10 PM) Result Value WORKSTATION ID [id number] Impression - Findings consistent with an ischemic [...] - Mildly dilated left ventricle size with fkpdltrh-xk-ilyfjjmu decreased LV systolic function. LV ejection fraction [...] who have questions please contact the health caretaker that requested your imaging first. Chest wo Contrast (Generic) (Exam End: 06/03/2024 4:33 PM) Result Value WORKSTATION ID [id number] Impression Cardiomegaly. Biventricular ICD leads in place. Thank you for letting us participate in the care of this patient. If you are a health care provider and have any questions regarding this report, please contact the number below. For patients who have questions please contact the health caretaker that requested your imaging first. Chest PA & Lateral (Generic) (Exam End: 06/07/2024 7:03 AM) Result Value WORKSTATION ID [id number] Impression Biventricular ICD leads intact and in [...] who have questions please contact the health caretaker that requested your imaging first. : Limited echo performed by fellow refrigeration unit repairer to assess LV function. Left ventricle is [...] ischemic cardiomyopathy with HFrEF (~30% EF), prior PR with stents, DM type 2, HTN, HLD, [...] plan on placing this and transfer to [facility], likely Friday. #ASCVD / STEMI: -Holding Plavix; continue ASA and heparin gtt. -Consult CT surgery for potential open revascularization. -Monitor telmetry -TTE -Viability planning per CT surgery - CT chest (complete) - Carotid duplex bilat (complete) - Cardiac MR (scheduled today Thursday 06/07) - Will need balloon pump prior to CABG on Friday, likely Friday then transfer to [facility] #HFrEF (Ischemic Cardiomyopathy): -Monitor I&O and [...] CODE Dain Colón MD Cardiology, M1-S2, Pager #[phone] 06/10/24 Associated attestation - Melida Valdes MD [...] a lytic and brought directly to the Inclinometer Tester. Cardiac catheterization demonstrated multivessel disease with severe [...] who is agreeable Melida Valdes MD Staff Mathematician Research * Cherelle Fregoso, JOSÉ ANTONIO - 06/09/2024 [...] ischemic cardiomyopathy with HFrEF (~30% EF), prior PR with stents, DM type 2, HTN, HLD, [...] PCP: Mauro Berumen MD PCP phone number: [phone] Date of Admission: 06/02/2024 ( Hospital Day 7 days ) Attending:Melida Valdes MD ID: 69 y.o. male with a h/o DM type 2, HTN, HLD, current smoker (2-3 cigarettes/day), HFrEF with anICD for low EF (~30%), and CAD with prior PR x3 with JENNA placed in [place], Melanoma, PAD, presented to [facility] with 1 hour of retrosternal CP (05/13) while watching TV, found to have STEMI. Active Problems: Active Hospital Problems Diagnosis STEMI (ST elevation myocardial infarction) Acute on chronic heart failure with reduced ejection fraction (HFrEF, <= 40%) Coronary artery disease involving [place] coronary artery of [place] heart without angina pectoris Type 2 diabetes [...] in the last 7068 hours. Invalid input(s): [id number] Recent Labs 06/09/24 0440 06/09/24 0034 06/08/24 2027 06/08/24 1616 06/08/24 1235 06/08/24 0810 06/08/24 0409 06/07/24 2357 06/07/24 2005 06/07/24 1631 06/07/24 1105 06/07/24 1103 POCGLU 131 186 176 159 226* 190 151 188 118 174 221* 250* Heme No results for input(s): LDH, HAPTOGLOBIN, URICACID in the last 168 hours. ABG (Arterial Blood Gas) No results found for: PHART, PO2ART, ALS7CVW, MGD0JSE Microbiology: Microbiology Results (Last 30 days) No results found for the last 720 hours. Imaging: Results for orders placed or performed during the hospital encounter of 06/02/24 XR Chest One View (Exam End: 06/03/2024 2:41 AM) Result Value WORKSTATION ID [id number] Impression No radiographically evident acute cardiopulmonary process. Thank you for letting us participate in the care of this patient. If you are a health care provider and have any questions regarding this report, please contact the number below. For patients who have questions please contact the health caretaker that requested your imaging first. Cardiac Morphology Function wwo Contrast (Exam End: 06/07/2024 1:10 PM) Result Value WORKSTATION ID [id number] Impression - Findings consistent with an ischemic [...] - Mildly dilated left ventricle size with dnoodvhy-et-ewfnzvrx decreased LV systolic function. LV ejection fraction [...] who have questions please contact the health caretaker that requested your imaging first. Chest wo Contrast (Generic) (Exam End: 06/03/2024 4:33 PM) Result Value WORKSTATION ID [id number] Impression Cardiomegaly. Biventricular ICD leads in place. Thank you for letting us participate in the care of this patient. If you are a health care provider and have any questions regarding this report, please contact the number below. For patients who have questions please contact the health caretaker that requested your imaging first. Chest PA & Lateral (Generic) (Exam End: 06/07/2024 7:03 AM) Result Value WORKSTATION ID [id number] Impression Biventricular ICD leads intact and in [...] who have questions please contact the health caretaker that requested your imaging first. : Limited echo performed by fellow refrigeration unit repairer to assess LV function. Left ventricle is [...] Infusions: heparin (porcine) infusion 1,400 Units/hr (06/08/24 582) PRN Meds:.glucose 40% oral geL OR dextrose [...] ischemic cardiomyopathy with HFrEF (~30% EF), prior PR with stents, DM type 2, HTN, HLD, [...] CODE Dain Colón MD Cardiology, M1-S2, Pager #[phone] 06/09/24 Associated attestation - Melida Valdes MD [...] a lytic and brought directly to the Inclinometer Tester. Cardiac catheterization demonstrated multivessel disease with severe [...] insertion low EF. Melida Valdes MD Staff Mathematician Research * Alejandra Baumann, JOSÉ ANTONIO - 06/08/2024 [...] ischemic cardiomyopathy with HFrEF (~30% EF), prior PR with stents, DM type 2, HTN, HLD, [...] to optimize glucose control Alejandra Baumann APRN [facility] Endocrinology Diabetes Management Pager [phone] Weekends please page [phone] 35 minutes were spent over the course [...] PCP: Mauro Berumen MD PCP phone number: [phone] Date of Admission: 06/02/2024 ( Hospital Day 6 days ) Attending:Melida Valdes MD ID: 69 y.o. male with a h/o DM type 2, HTN, HLD, current smoker (2-3 cigarettes/day), HFrEF with anICD for low EF (~30%), and CAD with prior PR x3 with JENNA placed in [place], Melanoma, PAD, presented to [facility] with 1 hour of retrosternal CP (05/13) while watching TV, found to have STEMI. Active Problems: Active Hospital Problems Diagnosis STEMI (ST elevation myocardial infarction) Acute on chronic heart failure with reduced ejection fraction (HFrEF, <= 40%) Coronary artery disease involving [place] coronary artery of [place] heart without angina pectoris Type 2 diabetes [...] in the last 7068 hours. Invalid input(s): [id number] Recent Labs 06/08/24 0409 06/07/247 06/07/24200406/07/24 1631 06/07/24 1105 06/07/24 1103 06/07/24 0745 06/07/24 0425 06/07/24 0008 06/06/24201706/06/24 1539 06/06/24 1339 POCGLU 151 188 118 174 221* 250* 175 127 182 143 147 317* Heme No results for input(s): LDH, HAPTOGLOBIN, URICACID in the last 168 hours. ABG (Arterial Blood Gas) No results found for: PHART, PO2ART, JBA9PGS, DCE8ESP Microbiology: Microbiology Results (Last 30 days) No results found for the last 720 hours. Imaging: Results for orders placed or performed during the hospital encounter of 06/02/24 XR Chest One View (Exam End: 06/03/2024 2:41 AM) Result Value WORKSTATION ID [id number] Impression No radiographically evident acute cardiopulmonary process. Thank you for letting us participate in the care of this patient. If you are a health care provider and have any questions regarding this report, please contact the number below. For patients who have questions please contact the health caretaker that requested your imaging first. Cardiac Morphology Function wwo Contrast (Exam End: 06/07/2024 1:10 PM) Result Value WORKSTATION ID [id number] Impression - Findings consistent with an ischemic [...] - Mildly dilated left ventricle size with upivaecm-qa-nmpvedod decreased LV systolic function. LV ejection fraction [...] who have questions please contact the health caretaker that requested your imaging first. Chest wo Contrast (Generic) (Exam End: 06/03/2024 4:33 PM) Result Value WORKSTATION ID [id number] Impression Cardiomegaly. Biventricular ICD leads in place. Thank you for letting us participate in the care of this patient. If you are a health care provider and have any questions regarding this report, please contact the number below. For patients who have questions please contact the health caretaker that requested your imaging first. Chest PA & Lateral (Generic) (Exam End: 06/07/2024 7:03 AM) Result Value WORKSTATION ID [id number] Impression Biventricular ICD leads intact and in [...] who have questions please contact the health caretaker that requested your imaging first. : Limited echo performed by fellow refrigeration unit repairer to assess LV function. Left ventricle is [...] ischemic cardiomyopathy with HFrEF (~30% EF), prior PR with stents, DM type 2, HTN, HLD, [...] CODE Dain Colón MD Cardiology, M1-S2, Pager #[phone] 06/08/24 Associated attestation - Melida Valdes MD [...] a lytic and brought directly to the Inclinometer Tester. Cardiac catheterization demonstrated multivessel disease with severe [...] Otherwise clinically stable Melida Valdes MD Staff Mathematician Research * Ross Manuel PA - 06/07/2024 12:00 PM EST Cardiac Electrophysiology CIED Interrogation/Programming Note Asked by MRI staff to evaluate and program Medtronic MORNING NEWS PRODUCER-D to allow for MR imaging. Patient Active Problem List Diagnosis ','STEMI (ST elevation myocardial infarction) Acute on chronic heart failure with reduced ejection fraction (HFrEF, <= 40%) Coronary artery disease involving [place] coronary artery of [place] heart without angina pectoris Type 2 diabetes mellitus Device Data: Medtronic Amplia MRI Quad MORNING NEWS PRODUCER-D [id number] #[id number] 06/16/2019 RA Medtronic 4076 CapSureFix Novus [id number] 06/16/2019 RV Medtronic 6935M [id number] 06/16/2019 LV Medtronic 4298 Attain Performa MRI [id number] 06/16/2019 DDD @ 50/130/130 Adaptive Bi-V and LV VF >188bpm ATP, 35j x6 FVT >188-222bpm burst 2, 35jx5 VT Battery longevity: 2.5yrs; charge time 4s P wave: 2.3mV R wave: >20.0mV Atrial impedance: 458 ohms RV impedance: 646 ohms LV impedance: 722 ohms Atrial threshold: 0.5V @ 0.4ms RV threshold: LV threshold: 1.75V @ 0.4ms AP 0.2% SEATING UPHOLSTERER 97.7% AT/AF 0% Impression and Plan: 1. Interrogated device to determine suitability for MRI 2. Programmed to MRI safe mode - VOO @ 70 3. Scan performed 4. Programming restored to baseline settings 5. Reinterrogated to verify appropriate function and settings 6. Device follow up as previously scheduled Provider: HENOK Meyer EP Consult attending physician: Libby Barton MD EP Consult positional pager #[phone](EPMD) EP Device interrogation positional pager # [phone] * Dain Colón MD - 06/07/2024 7:09 AM EST Images from the original note were not included. . Cardiology Progress Note Patient info: Name: George Mehta : 1955 PCP: Mauro Berumen MD PCP phone number: [phone] Date of Admission: 06/02/2024 ( Hospital Day 5 days ) Attending:Melida Valdes MD ID: 69 y.o. male with a h/o DM type 2, HTN, HLD, current smoker (2-3 cigarettes/day), HFrEF with anICD for low EF (~30%), and CAD with prior PR x3 with JENNA placed in [place], Melanoma, PAD, presented to [facility] with 1 hour of retrosternal CP (05/13) while watching TV, found to have STEMI. Active Problems: Active Hospital Problems Diagnosis STEMI (ST elevation myocardial infarction) Acute on chronic heart failure with reduced ejection fraction (HFrEF, <= 40%) Coronary artery disease involving [place] coronary artery of [place] heart without angina pectoris Type 2 diabetes [...] in the last 7068 hours. Invalid input(s): [id number] Recent Labs 06/07/24 0425 06/07/24 0008 06/06/24 2018 06/06/24 1539 06/06/24 1339 06/06/24 1134 06/06/24 0757 06/06/24 0653 06/05/24 2231 06/05/24 1622 06/05/24 1134 06/05/24 0727 POCGLU 127 182 143 147 317* 264* 195 187 238* 205* 211* 166 Heme No results for input(s): LDH, HAPTOGLOBIN, URICACID in the last 168 hours. ABG (Arterial Blood Gas) No results found for: PHART, PO2ART, UXD0WLE, WWP0JOU Microbiology: Microbiology Results (Last 30 days) No results found for the last 720 hours. Imaging: Results for orders placed or performed during the hospital encounter of 06/02/24 XR Chest One View (Exam End: 06/03/2024 2:41 AM) Result Value WORKSTATION ID [id number] Impression No radiographically evident acute cardiopulmonary process. Thank you for letting us participate in the care of this patient. If you are a health care provider and have any questions regarding this report, please contact the number below. For patients who have questions please contact the health caretaker that requested your imaging first. Chest wo Contrast (Generic) (Exam End: 06/03/2024 4:33 PM) Result Value WORKSTATION ID [id number] Impression Cardiomegaly. Biventricular ICD leads in place. Thank you for letting us participate in the care of this patient. If you are a health care provider and have any questions regarding this report, please contact the number below. For patients who have questions please contact the health caretaker that requested your imaging first. : Limited echo performed by fellow refrigeration unit repairer to assess LV function. Left ventricle is [...] Continuous Infusions: heparin (porcine) infusion 1,400 Units/hr (06/06/242) PRN Meds:.insulin lispro, potassium chloride ER OR [...] ischemic cardiomyopathy with HFrEF (~30% EF), prior PR with stents, DM type 2, HTN, HLD, [...] Dain Colón MD (PGY-1) Cardiology, M1-S2, Pager #[phone] 06/07/24 Associated attestation - Melida Valdes MD [...] a lytic and brought directly to the Inclinometer Tester. Cardiac catheterization demonstrated multivessel disease with severe [...] for further guidance. Melida Valdes MD Staff Mathematician Research * Dain Colón MD - 06/06/2024 7:17 AM EST Images from the original note were not included. . Cardiology Progress Note Patient info: Name: George Mehta : 1955 PCP: Mauro Berumen MD PCP phone number: [phone] Date of Admission: 06/02/2024 ( Hospital Day 4 days ) Attending:Melida Valdes MD ID: 69 y.o. male with a h/o DM type 2, HTN, HLD, current smoker (2-3 cigarettes/day), HFrEF with anICD for low EF (~30%), and CAD with prior PR x3 with JENNA placed in [place], Melanoma, PAD, presented to [facility] with 1 hour of retrosternal CP (05/13) while watching TV, found to have STEMI. Active Problems: Active Hospital Problems Diagnosis STEMI (ST elevation myocardial infarction) Acute on chronic heart failure with reduced ejection fraction (HFrEF, <= 40%) Coronary artery disease involving [place] coronary artery of [place] heart without angina pectoris Type 2 diabetes [...] in the last 7068 hours. Invalid input(s): [id number] Recent Labs 06/06/24 0653 06/05/24 2231 06/05/24 1622 06/05/24 1134 06/05/24 0727 06/04/24 1943 06/04/24 1526 06/04/24 1109 06/04/24 0711 06/03/24 2005 06/03/24 1748 06/03/24 1114 POCGLU 187 238* 205* 211* 166 175 154 188 182 136 191 166 Heme No results for input(s): LDH, HAPTOGLOBIN, URICACID in the last 168 hours. ABG (Arterial Blood Gas) No results found for: PHART, PO2ART, OBG6FDC, AAL8DOW Microbiology: Microbiology Results (Last 30 days) No results found for the last 720 hours. Imaging: Results for orders placed or performed during the hospital encounter of 06/02/24 XR Chest One View (Exam End: 06/03/2024 2:41 AM) Result Value WORKSTATION ID [id number] Impression No radiographically evident acute cardiopulmonary process. Thank you for letting us participate in the care of this patient. If you are a health care provider and have any questions regarding this report, please contact the number below. For patients who have questions please contact the health caretaker that requested your imaging first. Chest wo Contrast (Generic) (Exam End: 06/03/2024 4:33 PM) Result Value WORKSTATION ID [id number] Impression Cardiomegaly. Biventricular ICD leads in place. Thank you for letting us participate in the care of this patient. If you are a health care provider and have any questions regarding this report, please contact the number below. For patients who have questions please contact the health caretaker that requested your imaging first. : Limited echo performed by fellow refrigeration unit repairer to assess LV function. Left ventricle is [...] ischemic cardiomyopathy with HFrEF (~30% EF), prior PR with stents, DM type 2, HTN, HLD, [...] Dain Colón MD (PGY-1) Cardiology, M1-S2, Pager #[phone] 06/06/24 Associated attestation - Melida Valdes MD [...] a lytic and brought directly to the Inclinometer Tester. Cardiac catheterization demonstrated multivessel disease with severe [...] management. Help appreciated Melida Valdes MD Staff Mathematician Research * Frederick Dunn MD - 06/05/2024 8:13 AM EDT Images from the original note were not included. . Cardiology Progress Note Patient info: Name: George Mehta : 1955 PCP: Mauro Berumen MD PCP phone number: [phone] Date of Admission: 06/02/2024 ( Hospital Day 3 days ) Attending:Melida Valdes MD ID: 69 y.o. male with a h/o DM type 2, HTN, HLD, current smoker (2-3 cigarettes/day), HFrEF with anICD for low EF (~30%), and CAD with prior PR x3 with JENNA placed in [place], Melanoma, PAD, presented to [facility] with 1 hour of retrosternal CP [...] in the last 7068 hours. Invalid input(s): [id number] Recent Labs 06/05/24 1134 06/05/24 0727 06/04/24 1943 06/04/24 1526 06/04/24 1109 06/04/24 0711 06/03/24 2005 06/03/24 1748 06/03/24 1114 06/03/24 0754 06/02/24 2331 POCGLU 211* 166 175 154 188 182 136 191 166 195 156 Heme No results for input(s): LDH, HAPTOGLOBIN, URICACID in the last 168 hours. ABG (Arterial Blood Gas) No results found for: PHART, PO2ART, NPL2VQF, PVK1WZE Microbiology: Microbiology Results (Last 30 days) No results found for the last 720 hours. Imaging: Results for orders placed or performed during the hospital encounter of 06/02/24 XR Chest One View (Exam End: 06/03/2024 2:41 AM) Result Value WORKSTATION ID [id number] Impression No radiographically evident acute cardiopulmonary process. Thank you for letting us participate in the care of this patient. If you are a health care provider and have any questions regarding this report, please contact the number below. For patients who have questions please contact the health caretaker that requested your imaging first. Chest wo Contrast (Generic) (Exam End: 06/03/2024 4:33 PM) Result Value WORKSTATION ID [id number] Impression Cardiomegaly. Biventricular ICD leads in place. Thank you for letting us participate in the care of this patient. If you are a health care provider and have any questions regarding this report, please contact the number below. For patients who have questions please contact the health caretaker that requested your imaging first. : Limited echo performed by fellow refrigeration unit repairer to assess LV function. Left ventricle is [...] ischemic cardiomyopathy with HFrEF (~30% EF), prior PR with stents, DM type 2, HTN, HLD, [...] all the information they need regarding the MORNING NEWS PRODUCER-D.Plan for MRI tomorrow. Starting 40 mg IV [...] a lytic and brought directly to the Inclinometer Tester. Cardiac catheterization demonstrated multivessel disease with severe [...] maintenance of 40. Melida Valdes MD Staff Mathematician Research * Migel Javier RN - 06/05/2024 6:21 AM EDT Implanted device record scanned into: Chart Review-->Media-->External Cardiology-->03/25/2024. Medtronic Amplia MRI Quad CRTD [id number] Serial #: [id number] DDD mode A + Bi/V Rates 50-130 Migel Javier RN * Dain Colón MD - 06/04/2024 11:16 AM EDT Implant Records Requested Type: MORNING NEWS PRODUCER-D Engineering Programmer: Medtronic Product: [id number] Amplia MRI MRI compatibility: Compatible for 1.5-3 T Model #: [id number] Placed at: [place], [place] Records requested for MRI: 1. Operative report 2. Implant log I requested that these records be sent to our MRI department, Dain Colón MD 06/04/24 11:58 AM * Dain Colón MD - 06/04/2024 6:57 AM EDT Images from the original note were not included. . Cardiology Progress Note Patient info: Name: George Mehta : 1955 PCP: Mauro Berumen MD PCP phone number: [phone] Date of Admission: 06/02/2024 ( Hospital Day 2 days ) Attending:Delroy Fofana MD ID: 69 y.o. male with a h/o DM type 2, HTN, HLD, current smoker (2-3 cigarettes/day), HFrEF with anICD for low EF (~30%), and CAD with prior PR x3 with JENNA placed in [place], Melanoma, PAD, presented to [facility] with 1 hour of retrosternal CP [...] in the last 7068 hours. Invalid input(s): [id number] Recent Labs 06/03/24 2005 06/03/24 1748 06/03/24 1114 06/03/24 0754 06/02/24 2331 POCGLU 136 191 166 195 156 Heme No results for input(s): LDH, HAPTOGLOBIN, URICACID in the last 168 hours. ABG (Arterial Blood Gas) No results found for: PHART, PO2ART, GVO2NSD, LPK6ZIC Microbiology: Microbiology Results (Last 30 days) No results found for the last 720 hours. Imaging: Results for orders placed or performed during the hospital encounter of 06/02/24 XR Chest One View (Exam End: 06/03/2024 2:41 AM) Result Value WORKSTATION ID [id number] Impression No radiographically evident acute cardiopulmonary process. Thank you for letting us participate in the care of this patient. If you are a health care provider and have any questions regarding this report, please contact the number below. For patients who have questions please contact the health caretaker that requested your imaging first. Chest wo Contrast (Generic) (Exam End: 06/03/2024 4:33 PM) Result Value WORKSTATION ID [id number] Impression Cardiomegaly. Biventricular ICD leads in place. Thank you for letting us participate in the care of this patient. If you are a health care provider and have any questions regarding this report, please contact the number below. For patients who have questions please contact the health caretaker that requested your imaging first. : Limited echo performed by fellow refrigeration unit repairer to assess LV function. Left ventricle is [...] ischemic cardiomyopathy with HFrEF (~30% EF), prior PR with stents, DM type 2, HTN, HLD, [...] -Lasix 40 mg IV given in the labor specialist; assess diuretic response, consider re-dosing -Continue carvedilol; [...] @CODESTATUS@ Dain Colón MD (PGY-1) Cardiology M1-S2, #[id number] 06/04/2024, 6:57 AM Associated attestation - Melida [...] a lytic and brought directly to the Inclinometer Tester. Cardiac catheterization demonstrated multivessel disease with severe [...] Friday -Diuresis with Jovanni Valdes MD Staff Mathematician Research * Fatmata Mcallister PT - 06/03/2024 3:29 [...] vs PCI) Fatmata Mcallister PT, MSPT Pager [phone] Inpatient Physical Therapy * Marlin Gómez MD [...] Marlin Gómez MD Cardiology S2, Pager # [phone] 06/03/2024 * Delroy Fofana MD - 06/03/2024 7:16 AM EDT Images from the original note were not included. . Cardiology Progress Note Patient info: Name: George Mehta : 1955 PCP: Mauro Berumen MD PCP phone number: [phone] Date of Admission: 06/02/2024 ( Hospital Day 1 day ) Attending:Nuha Rojo MD ID: 69 y.o. male with a h/o DM type 2, HTN, HLD, current smoker (2-3 cigarettes/day), HFrEF with anICD for low EF (~30%), and CAD with prior PR x3 with JENNA placed in [place], Melanoma, PAD, presented to [facility] with 1 hour of retrosternal CP [...] in the last 7068 hours. Invalid input(s): HKYPEVCUTZN5I Recent Labs 06/02/24 2331 POCGLU 156 Heme No results for input(s): LDH, HAPTOGLOBIN, URICACID in the last 168 hours. ABG (Arterial Blood Gas) No results found for: PHART, PO2ART, PJY2ZFY, XAY0QAE Microbiology: Microbiology Results (Last 30 days) No results found for the last 720 hours. Imaging: Results for orders placed or performed during the hospital encounter of 06/02/24 XR Chest One View (Exam End: 06/03/2024 2:41 AM) Result Value WORKSTATION ID [id number] Impression No radiographically evident acute cardiopulmonary process. Thank you for letting us participate in the care of this patient. If you are a health care provider and have any questions regarding this report, please contact the number below. For patients who have questions please contact the health caretaker that requested your imaging first. : Limited echo performed by fellow refrigeration unit repairer to assess LV function. Left ventricle is [...] ischemic cardiomyopathy with HFrEF (~30% EF), prior PR with stents, DM type 2, HTN, HLD, [...] -Lasix 40 mg IV given in the labor specialist; assess diuretic response, consider re-dosing -Continue carvedilol; [...] of care per Dain Colón MD (medical record specialist). Please refer to his note above for details. Very pleasant 69 year old male but he is obese, diabetic, and he is a SMOKER with known prior CAD and moderately reduced LVEF (30%). He has a pacer. History of surgical resection of melanoma on his head. The patient was transferred overnight to [facility] as a STEMI. He was treated initially with a lytic (TNK) and brought directly to the labor specialist. The cath demonstrated 3VD with diffuse disease [...] - 06/13/2024 10:58 AM EST ICU Blue (#[id number]) H&P Patient info: Name: George Mehta : 1955 PCP: Mauro Berumen MD PCP phone number: [phone] Date of Admission: 06/02/2024 ( Hospital Day 11 days ) Attending:Haja Byrnes MD ID: George Mehta is a 69 y.o. male with a h/o DM type 2, HTN, HLD, current smoker (2-3 cigarettes/day), HFrEF with an ICD for low EF (~30%), and CAD with prior PR x3 with JENNA placed in [place], Melanoma, PAD, presented to [facility] with 1 hour of retrosternal CP (05/13) while watching TV, foundto have STEMI. HPI: Shahnaz Scanlon H&P 06/02 69 y.o. male with a h/o DM type 2, HTN, HLD, current smoker (2-3 cigarettes/day), HFrEF with an ICD for low EF (~30%), and CAD with prior PR x3 with JENNA placed in [place], Melanoma, PAD, presented to [facility] with 1 hour of retrosternal CP (05/13) while watching TV. CP was non-radiating, not asso ciated with diaphoresis, nausea, or SOB. Denies orthopnea, MARTÍNEZ, palpitations, or LE edema. ECG showed findings consistent with anterior STEMI. He received TNK and was transferred for PCI. Coronary angiography showed a small, non-dominant RCA with bwku-dj-pquxfuij disease and a dominant,heavily calcified left system with prior stents in the LAD and OM. The LM bifurcates into the LAD and LCX, both heavily calcified. The proximal LCX has a 75% calcified, aneurysmal lesion, and an 80% calcified lesion distally before a large OM2. OM1 is a GLAZE SPRAYER with in-stent restenosis, filling retrograde via collaterals. [...] 40 mg Lasix was administered in the labor specialist. Cardiac surgery was consulted and plan for [...] Blood Gas) No results for input(s): PHART, GUR9DCB, PO2ART, HLJ3PVG, LACTATEVEN, ZRF8DYT, PFRATIOART2 in the last 168 hours. VBG (Venous Blood Gas) Recent Labs 06/10/24 1742 PHVEN 7.34 PO2VEN 24 HKM4KYX 27.4 Mixed Venous Sat No results for input(s): B8GXRP5 in the last 168 hours. Intake/Output Summary [...] in the last 7068 hours. Invalid input(s): QNTXKCOAPCL6L Recent Labs 06/13/24 0741 06/13/24 0325 06/12/24 2353 06/12/24 1932 06/12/24 1541 06/12/24 1121 06/12/24 0800 06/12/24 0425 06/11/24 2356 06/11/24 2025 06/11/24 1624 06/11/24 1108 POCGLU 126 99 141 158 113 207* 169 132 135 210* 81 233* Heme No results for input(s): LDH, HAPTOGLOBIN, URICACID in the last 168 hours. ABG (Arterial Blood Gas) No results for input(s): PHART, DCL7KHO, PO2ART, BRF2BKS, LACTATEVEN, EXH4IWU, PFRATIOART2 in the last 168 hours. VBG (Venous Blood Gas) Recent Labs 06/10/24 1742 PHVEN 7.34 PO2VEN 24 CGL3VXA 27.4 Mixed Venous Sat No results for input(s): I0UYMC2 in the last 168 hours. Microbiology: Microbiology Results (Last 30 days) No results found for the last 720 hours. Assessment & Plan: George Mehta is a 69 y.o. male with CAD, ischemic cardiomyopathy with HFrEF (~30% EF), prior PR with stents, DM type 2, HTN, HLD, [...] Plan for CABG 06/14. Patient NPO at [place]. #ASCVD / STEMI: -Holding Plavix; continue ASA [...] (Give Meds) Daily Healthy Menu Choices/Cardiac diet ([facility]-Diet) DVT Prophylaxis: SCD GI Prophylaxis: None Dispo: [...] TUD (abstinent since admission), ASCVD with multipleprior PR and PCIs, ICM/HFrEF LVEF 30% (all territories [...] is in the chart Rebeca Prado MD Bartender Helper PGY6 [phone] * Shahnaz Scanlon MD - [...] low EF (~30%), and CAD with prior PR x3 with JENNA placed in [place], [facility], [facility], presented to [facility] with 1 hour of retrosternal CP (05/13) while watching TV. CP was non-radiating, not assoc iated with diaphoresis, nausea, or SOB. Denies orthopnea, MARTÍNEZ, palpitations, or LE edema. ECG showed findings consistent with anterior STEMI. He received TNK and was transferred for PCI. Coronary angiography showed a small, non-dominant RCA with wtfe-xe-phmebnwr disease and a dominant,heavily calcified left system with prior stents in the LAD and OM. The LM bifurcates into the LAD and LCX, both heavily calcified. The proximal LCX has a 75% calcified, aneurysmal lesion, and an 80% calcified lesion distally before a large OM2. OM1 is a GLAZE SPRAYER with in-stent restenosis, filling retrograde via collaterals. [...] 40 mg Lasix was administered in the labor specialist. Past Medical History: As per HPI Significant [...] Affect: Mood normal. Behavior: Behavior normal. Diagnostics: [facility] 06/02/2024 Coronary angiography revealed small non [...] ischemic cardiomyopathy with HFrEF (~30% EF), prior PR with stents, DM type 2, HTN, HLD, [...] -Lasix 40 mg IV given in the labor specialist; assess diuretic response. -Continue carvedilol; hold Entresto [...] & Follow-up Care: Contact information for follow-up [facility] [address] [facility] [address] Cardiac Rehab, [address] [address] JAMIE GRAMAJO confirmed with [facility] that they [...] N/A Patient is insured through: Primary Insurance: [facility] MANAGED MEDICARE Payor: AAR MANAGED MEDICARE / Plan: [facility] MANAGED MEDICARE COMPLETE / Product Type: [...] Roberts RN - 06/18/2024 10:50 AM EST [facility] CARDIAC REHABILITATION George Mehta was seen today regarding participation in the outpatient Phase 2 Cardiac Rehabilitation at [facility]. The patient agrees to a referral [...] MEDICARE Payor: AARP MANAGED MEDICARE / [facility] / Product Type: [...] Referrals: pending clinical course and PT/OT recs [facility] [address] [facility] [address] PHONE: [phone] FAX: [phone] Transportation: family or friend will provide Barriers [...] MEDICARE Payor: AAR MANAGED MEDICARE / [facility]: [facility] COM[facility]TE / Product Type: *No Product type* / Secondary Insurance: N/A Plan for discharge is: Home w/ Services Outpatient Agency/Support Group Needs: Homecare agency Agency Choices: [facility]: Medication checks, Registered Nurse, Physical Therapy Agency Referrals: pending clinical course and PT/OT recs [facility] [address] [place] [address] PHONE: [phone] FAX: [phone] Transportation: family or friend will provide Barriers [...] Loja MD - 06/14/2024 8:48 AM EST [facility] Operative Note Patient Name: George Mehta : [id number] MR#: [id number] Case Date: 06/14/2024 Surgeon: Surgeons and Role: * Bobby Loja MD - Primary * Rashi Bass PA - Physician Adjudication Specialist Preoperative diagnosis: CAD, MARIALUISA flickering mass on [...] area. The patient was transported to the [facility] in a critical but stable condition [...] procedures today and tomorrow. Report called to [facility] - all belongings with patient. PLAN MOVING FORWARD: laboratory clerk and transfer to [facility]. INDIVIDUALIZED FALL PREVENTION [...] MEDICARE Payor: AAR MANAGED MEDICARE / Plan: [facility] MANAGED MEDICARE COMPLETE / Product Type: *No Product type* / Secondary Insurance: N/A Plan for discharge is: Home w/ Services Outpatient Agency/Support Group Needs: Homecare agency, Agency Choices: [facility] Health Services: Medication checks, Registered Nurse, Physical Therapy Agency Referrals: [facility] [address] [place] [address] RN / PT Routed 06/10 Transportation: family [...] with home health services when medically ready. assisted living housekeeper/Automatic Spinning Lathe Setter will continue to follow patient???s progress and remain available if situation changes for coordination of care, psychosocial support and/or discharge planning. Anticipated Date of Discharge: 06/18/2024 Mariia Montero RN CM Extension [phone] * Plan of Care - Migel Javier [...] No Patient is insured through: Primary Insurance: [facility] MANAGED MEDICARE Payor: [facility] MANAGED MEDICARE / Plan: [facility] MANAGED MEDICARE COMPLETE / Product Type: [...] consult for high risk PCI vs CABG assisted living housekeeper/Automatic Spinning Lathe Setter will continue to follow patient???s progress and remain available if situation changes for coordination of care, psychosocial support and/or discharge planning. Anticipated Date of Discharge: 06/11/2024 Mariia Montero RN Extension [phone] * Plan of Care - Becca Hope [...] ischemic cardiomyopathy with HFrEF (~30% EF), prior PR with stents, DM type 2, HTN, HLD, [...] and to provide a review of termite renewal inspector diabetes care. Diabetes History: George Mehta has [...] Breakfast- varies - eggs with khoury or cape verdean muffin Lunch- turkey sandwich Supper- meat and [...] Infusions: heparin (porcine) infusion 1,400 Units/hr (06/06/24 7794) PRN: insulin lispro, potassium chloride ER OR [...] ischemic cardiomyopathy with HFrEF (~30% EF), prior PR with stents, DM type 2, HTN, HLD, [...] Baumann APRN Endocrinology Diabetes Management Service Pager: [phone] Weekends please page [phone] 80 minute visit was spent in counseling [...] y.o. male with a PMHx of previous PR s/p PCI x3, ICM/HFrEF (LVEF 30%) s/p ICD, DMII, HTN, HLD, remote melanoma, and smoker who presented to [facility] last night via EMS after developing acute, severe chest pain while watching TV. Patient was ruled in for STEMI, given TNK, ASA, plavix, heparin gtt, and sent to [facility] for coronary angiography. LHC demonstrated severely calcified left coronary system with notable LCx 75/80% lesions and GLAZE SPRAYER OM1 with ISR with collateral retrograde filling, [...] elevation myocardial infarction) Past Medical History: previous PR s/p PCI x3 ICM/HFrEF (LVEF 30%) s/p [...] is large. OM1 appears to be a GLAZE SPRAYER, with in stentrestenosis and fills retrograde via [...] y.o. male admitted with STEMI s/p TNK, [facility] showing multivessel CAD including ISR, no [...] to our service. Signed: Paula Treviño PA-C [facility] Section of Cardiac Surgery Date: 06/03/2024 * Initial Assessments - Catina Estrada MSW - 06/03/2024 10:32 AM EDT Office of Care Management Initial Assessment CHINA Humphrey reviewed record and discussed patient with Care Team. Source of Information: Team, bedside nurse, medical record, and Patient EDGE BEADER Introduced self/reviewed role; services accepted. Admitted From: Transfer from another hospital Location: [facility] Reason for Hospitalization: Chest Pain while watching TV, doctors said I had a heart attack Past medical History: No past medical history on file. Hospitalizations Within the Past 30 Days: no previous admission in last 30 days Current Decision-Making Capacity: Self If AD's have not been completed the following surrogate would be surrogate decision maker per [place] decision making law. (Only good for 180 days) Any patient receiving care in [place] must abide by [place] law. The hierarchy for surrogate decision making [...] (i) The agent with financial power of regulatory attorney or a conservator appointed in accordance [...] were you homeless or living in a nursing home (including now)?: No In the past [...] in the bathroom) Home Address confirmed as: [address] [place] [address] [address] [facility] [address] Social & Family Supports: All names listed [...] Pertinent/Service Specific Information: Health/Prescription Coverage: Primary Insurance: [facility] MEDICARE Payor: [facility] MEDICARE / Plan: AARP RPPO MANAGED MEDICARE COMPLETE / Product Type: *No Product type* / Secondary Insurance: N/A ; Prescription Coverage: Yes Preferred Pharmacy: [id number] - [facility], [place] - [address] [facility] [address] [facility] [address] Status: Patient is a : No Primary Care Provider confirmed: Mauro Berumen MD [phone] Patient/Caregiver Goals of Treatment: Potential Needs for [...] care as indicated. CHINA Min Cardiology, [phone]. [phone] * Brief Op Note - Angeles Gaxiola PA - 06/03/2024 12:23 AM EDT Preliminary Cardiac Catheterization Procedure Note: Patient Name: George Mehta : [id number] MR#: [id number] Case Date: 06/02/2024 - 06/03/2024 Box Maker: Surgeons and Role: * Nuha Shen MD - Primary * Angeles Gaxiola PA - Physician Adjudication Specialist Preoperative diagnosis: STEMI Postoperative diagnosis: * STEMI * Procedure(s) performed: RRA access [facility] Coronary angiogram IVUS LM/LAD/LCX Access: 6 Fr RRA A time-out was conducted prior to the start of the procedure to verify the correct patient and procedure, procedure location, and all relevant critical information. Preliminary findings: 69 year old current smoker (1-2 cigarette's per day), DM type 2, hypertension, dyslipidemia, ICD for HFrEF/low EF (~30%), CAD with prior PR and 3 stents historically (in [place]) who presented to [facility] with 1 hour of rest chest [...] is large. OM1 appears to be a GLAZE SPRAYER, with in stentrestenosis and fills retrograde via [...] receive 40 mg of lasix in the labor specialist. Recommendations: surgical consult for possible open revascularization; [...] 7:20 AM EST Coronary artery disease involving [place] coronary artery of [place] heart without angina pectoris POC, GLUCOSE Routine [...] - 199 mg/dL 06/21/2024 3:51 AM EST [facility] Comment:Supplemental ranges: <140 mg/dL before meals <180 mg/dL all other times of the day. Blood CAPILLARY BLOOD / Unknown 06/21/2024 3:51 AM EST 06/21/2024 3:51 AM EST Bobby Loja MD POINT OF CARE TEST O RDERABLES [facility] [place] [address] * (ABNORMAL) Basic Metabolic Panel (06/21/2024 2:09 AM EST) Glucose 169 65 - 199 mg/dL 06/21/2024 3:10 AM EST [facility] Comment:Glucose Concentratio n >=200 mg/dL plus symptoms is consistent with Diabetes Mellitus. Blood Urea Nitrogen 27(H) 10 - 20 mg/dL 06/21/2024 3:10 AM EST [facility] Creatinine 1.24 0.80 - 1.50 mg/dL 06/21/2024 3:10 AM EST [facility] Sodium 138 135 - 145 mMol/L 06/21/2024 3:10 AM [facility] Potassium 4.2 3.5 - 5.0 mMol/L 06/21/2024 3:10 AM [facility] Chloride 100 98 - 107 mMol/L 06/21/2024 3:10 AM [facility] Carbon Dioxide 27 22 - 31 mMol/L 06/21/2024 3:10 AM [facility] Anion Gap 11 5 - 15 mMol/L 06/21/2024 3:10 AM [facility] Calcium 8.7 8.5 - 10.5 mg/dL 06/21/2024 3:10 AM [facility] Est Glomerular Filtration Rate - Male 64 mL/min/1. 73 m?? 06/21/2024 3:10 AM [facility] Comment: This patient's estimated GFR [...] EST 06/21/2024 2:37 AM EST Keila Hanley FOOD ORDER EXPEDITER CHEMISTRY ORDERABL ES [facility] [place] [address] * POC, GLUCOSE (06/21/2024 12:04 AM EST) Glucometer, POC 157 65 - 199 mg/dL 06/21/2024 12:04 AM EST [facility] Comment:Supplemental ranges: <140 mg/dL before meals <180 mg/dL all other times of the day. Blood CAPILLARY BLOOD / Unknown 06/21/2024 12:04 AM EST 06/21/2024 12:04 AM EST Bobby Loja MD POINT OF CARE TEST O NIKA [facility] [place] [address] * POC, GLUCOSE (06/20/2024 11:14 PM EST) Glucometer, POC 67 65 - 199 mg/dL 06/20/2024 11:14 PM EST [facility] Comment:Supplemental ranges: <140 mg/dL before meals <180 mg/dL all other times of the day. Blood CAPILLARY BLOOD / Unknown 06/20/2024 11:14 PM EST 06/20/2024 11:14 PM EST Bobby Loja MD POINT OF CARE TEST O NIKA Performing Organization Address City/[facility]/ZIP Co de Phone Number [facility] [place] [address] * POC, GLUCOSE (06/20/2024 7:16 PM EST) Glucometer, POC 132 65 - 199 mg/dL 06/20/2024 7:16 PM EST [facility] Comment:Supplemental ranges: <140 mg/dL before meals <180 mg/dL all other times of the day. Blood CAPILLARY BLOOD / Unknown 06/20/2024 7:16 PM EST 06/20/2024 7:16 PM EST Bobby Loja MD POINT OF CARE TEST O NIKA [facility] [place] [address] * POC, GLUCOSE (06/20/2024 3:39 PM EST) Glucometer, POC 124 65 - 199 mg/dL 06/20/2024 3:40 PM EST [facility] Comment:Supplemental ranges: <140 mg/dL before meals <180 mg/dL all other times of the day. Blood CAPILLARY BLOOD / Unknown 06/20/2024 3:39 PM EST 06/20/2024 3:40 PM EST Bobby Loja MD POINT OF CARE TEST O NIKA Performing Organization Address City/[facility]/ZIP Co de Phone Number [facility] [place] [address] * POC, GLUCOSE (06/20/2024 12:02 PM EST) Glucometer, POC 173 65 - 199 mg/dL 06/20/2024 12:03 PM EST [facility] Comment:Supplemental ranges: <140 mg/dL before meals <180 mg/dL all other times of the day. Blood CAPILLARY BLOOD / Unknown 06/20/2024 12:02 PM EST 06/20/2024 12:03 PM EST Bobby Loja MD POINT OF CARE TEST O NIKA [facility] [place] [address] * POC, GLUCOSE (06/20/2024 7:10 AM EST) Glucometer, POC 130 65 - 199 mg/dL 06/20/2024 7:11 AM EST [facility] Comment:Supplemental ranges: <140 mg/dL before meals <180 mg/dL all other times of the day. Blood CAPILLARY BLOOD / Unknown 06/20/2024 7:10 AM EST 06/20/2024 7:11 AM EST Bobby Loja MD POINT OF CARE TEST O RDERABLES [facility] [place] [address] * (ABNORMAL) Basic Metabolic Panel (06/20/2024 2:28 AM EST) Glucose 79 65 - 199 mg/dL 06/20/2024 3:06 AM [facility] Comment:Glucose Concentratio n >=200 mg/dL plus symptoms is consistent with Diabetes Mellitus. Blood Urea Nitrogen 38(H) 10 - 20 mg/dL 06/20/2024 3:06 AM [facility] Creatinine 1.39 0.80 - 1.50 mg/dL 06/20/2024 3:06 AM [facility] Sodium 137 135 - 145 mMol/L 06/20/2024 3:06 AM [facility] Potassium 3.6 3.5 - 5.0 mMol/L 06/20/2024 3:06 AM [facility] Chloride 100 98 - 107 mMol/L 06/20/2024 3:06 AM [facility] Carbon Dioxide 29 22 - 31 mMol/L 06/20/2024 3:06 AM [facility] Anion Gap 8 5 - 15 mMol/L 06/20/2024 3:06 AM [facility] Calcium 8.4(L) 8.5 - 10.5 mg/dL 06/20/2024 3:06 AM [facility] Est Glomerular Filtration Rate - Male 56 mL/min/1. 73 m?? 06/20/2024 3:06 AM [facility] Comment: This patient's estimated GFR [...] EST Keila Hanley APRN CHEMISTRY ORDERABL ES [facility] [place] [address] * POC, GLUCOSE (06/20/2024 12:32 AM EST) Glucometer, POC 86 65 - 199 mg/dL 06/20/2024 12:32 AM EST [facility] Comment:Supplemental ranges: <140 mg/dL before meals <180 mg/dL all other times of the day. Blood CAPILLARY BLOOD / Unknown 06/20/2024 12:32 AM EST 06/20/2024 12:32 AM EST Bobby Loja MD POINT OF CARE TEST O NIKA Performing Organization Address City/[facility]/ZIP Co de Phone Number [facility] [place] [address] * (ABNORMAL) POC, GLUCOSE (06/20/2024 12:02 AM EST) Glucometer, POC 59(L) 65 - 199 mg/dL 06/20/2024 12:02 AM EST [facility] Comment:Supplemental ranges: <140 mg/dL before meals <180 mg/dL all other times of the day. Blood CAPILLARY BLOOD / Unknown 06/20/2024 12:02 AM EST 06/20/2024 12:03 AM EST Bobby Loja MD POINT OF CARE TEST O NIKA [facility] [place] [address] * POC, GLUCOSE (06/19/2024 8:15 PM EST) Glucometer, POC 131 65 - 199 mg/dL 06/19/2024 8:15 PM EST [facility] Comment:Supplemental ranges: <140 mg/dL before meals <180 mg/dL all other times of the day. Blood CAPILLARY BLOOD / Unknown 06/19/2024 8:15 PM EST 06/19/2024 8:15 PM EST Bobby Loja MD POINT OF CARE TEST O NIKA [facility] [place] [address] * POC, GLUCOSE (06/19/2024 6:01 PM EST) Glucometer, POC 129 65 - 199 mg/dL 06/19/2024 6:01 PM EST [facility] Comment:Supplemental ranges: <140 mg/dL before meals <180 mg/dL all other times of the day. Blood CAPILLARY BLOOD / Unknown 06/19/2024 6:01 PM EST 06/19/2024 6:02 PM EST Bobby Loja MD POINT OF CARE TEST O NIKA Performing Organization Address City/[facility]/ZIP Co de Phone Number [facility] [place] [address] * POC, GLUCOSE (06/19/2024 4:51 PM EST) Glucometer, POC 155 65 - 199 mg/dL 06/19/2024 4:51 PM EST [facility] Comment:Supplemental ranges: <140 mg/dL before meals <180 mg/dL all other times of the day. Blood CAPILLARY BLOOD / Unknown 06/19/2024 4:51 PM EST 06/19/2024 4:51 PM EST Bobby Loja MD POINT OF CARE TEST O NIKA [facility] [place] [address] * POC, GLUCOSE (06/19/2024 12:37 PM EST) Glucometer, POC 136 65 - 199 mg/dL 06/19/2024 12:37 PM EST [facility] Comment:Supplemental ranges: <140 mg/dL before meals <180 mg/dL all other times of the day. Blood CAPILLARY BLOOD / Unknown 06/19/2024 12:37 PM EST 06/19/2024 12:37 PM EST Bobby Loja MD POINT OF CARE TEST O NIKA Performing Organization Address City/[facility]/ZIP Co de Phone Number [facility] [place] [address] * POC, GLUCOSE (06/19/2024 11:20 AM EST) Glucometer, POC 185 65 - 199 mg/dL 06/19/2024 11:21 AM EST [facility] Comment:Supplemental ranges: <140 mg/dL before meals <180 mg/dL all other times of the day. Blood CAPILLARY BLOOD / Unknown 06/19/2024 11:20 AM EST 06/19/2024 11:21 AM EST Bobby Loja MD POINT OF CARE TEST O NIKA [facility] [place] [address] * POC, GLUCOSE (06/19/2024 7:21 AM EST) Glucometer, POC 125 65 - 199 mg/dL 06/19/2024 7:21 AM EST [facility] Comment:Supplemental ranges: <140 mg/dL before meals <180 mg/dL all other times of the day. Blood CAPILLARY BLOOD / Unknown 06/19/2024 7:21 AM EST 06/19/2024 7:22 AM EST Bobby Loja MD POINT OF CARE TEST O NIKA Performing Organization Address [facility] Co de Phone Number [facility] [place] [address] * POC, GLUCOSE (06/19/2024 4:52 AM EST) Glucometer, POC 125 65 - 199 mg/dL 06/19/2024 4:52 AM EST [facility] Comment:Supplemental ranges: <140 mg/dL before meals <180 mg/dL all other times of the day. Blood CAPILLARY BLOOD / Unknown 06/19/2024 4:52 AM EST 06/19/2024 4:52 AM EST Bobby Loja MD POINT OF CARE TEST O NIKA Performing Organization Address [facility] Co de Phone Number [facility] [place] [address] * POC, GLUCOSE (06/19/2024 4:13 AM EST) Glucometer, POC 67 65 - 199 mg/dL 06/19/2024 4:13 AM EST [facility] Comment:Supplemental ranges: <140 mg/dL before meals <180 mg/dL all other times of the day. Blood CAPILLARY BLOOD / Unknown 06/19/2024 4:13 AM EST 06/19/2024 4:13 AM EST Bobby Loja MD POINT OF CARE TEST O NIKA Performing Organization Address [facility] Co de Phone Number [facility] [place] [address] * (ABNORMAL) POC, GLUCOSE (06/19/2024 3:48 AM EST) Glucometer, POC 51(LLL) 65 - 199 mg/dL 06/19/2024 3:48 AM EST [facility] Comment:Supplemental ranges: <140 mg/dL before meals <180 mg/dL all other times of the day. Blood CAPILLARY BLOOD / Unknown 06/19/2024 3:48 AM EST 06/19/2024 3:48 AM EST Bobby Loja MD POINT OF CARE TEST O RDERABLES [facility] [place] [address] * (ABNORMAL) Basic Metabolic Panel (06/19/2024 3:44 AM EST) Glucose 53(LLL) 65 - 199 mg/dL 06/19/2024 4:48 AM EST [facility] Comment:Glucose Concentratio n >=200 mg/dL plus symptoms is consistent with Diabetes Mellitus. Blood Urea Nitrogen 42(H) 10 - 20 mg/dL 06/19/2024 4:48 AM [facility] Creatinine 1.29 0.80 - 1.50 mg/dL 06/19/2024 4:48 AM [facility] Sodium 138 135 - 145 mMol/L 06/19/2024 4:48 AM [facility] Potassium 3.6 3.5 - 5.0 mMol/L 06/19/2024 4:48 AM [facility] Chloride 100 98 - 107 mMol/L 06/19/2024 4:48 AM [facility] Carbon Dioxide 29 22 - 31 mMol/L 06/19/2024 4:48 AM [facility] Anion Gap 9 5 - 15 mMol/L 06/19/2024 4:48 AM [facility] Calcium 8.8 8.5 - 10.5 mg/dL 06/19/2024 4:48 AM [facility] Est Glomerular Filtration Rate - Male 61 mL/min/1. 73 m?? 06/19/2024 4:48 AM [facility] Comment: This patient's estimated GFR [...] APRN CHEMISTRY ORDERABL ES Performing Organization Address City/[facility]/ZIP Co de Phone Number [facility] [place] [address] * POC, GLUCOSE (06/19/2024 12:23 AM EST) Glucometer, POC 82 65 - 199 mg/dL 06/19/2024 12:23 AM EST [facility] Comment:Supplemental ranges: <140 mg/dL before meals <180 mg/dL all other times of the day. Blood CAPILLARY BLOOD / Unknown 06/19/2024 12:23 AM EST 06/19/2024 12:23 AM EST Bobby Loja MD POINT OF CARE TEST O RDBECKIE Performing Organization Address City/[facility]/ZIP Co de Phone Number [facility] [place] [address] * POC, GLUCOSE (06/18/2024 11:08 PM EST) Glucometer, POC 73 65 - 199 mg/dL 06/18/2024 11:08 PM EST [facility] Comment:Supplemental ranges: <140 mg/dL before meals <180 mg/dL all other times of the day. Blood CAPILLARY BLOOD / Unknown 06/18/2024 11:08 PM EST 06/18/2024 11:08 PM EST Bobby Loja MD POINT OF CARE TEST O NIKA [facility] [place] [address] * POC, GLUCOSE (06/18/2024 7:32 PM EST) Glucometer, POC 167 65 - 199 mg/dL 06/18/2024 7:32 PM EST [facility] Comment:Supplemental ranges: <140 mg/dL before meals <180 mg/dL all other times of the day. Blood CAPILLARY BLOOD / Unknown 06/18/2024 7:32 PM EST 06/18/2024 7:32 PM EST Bobby Loja MD POINT OF CARE TEST O NIKA Performing Organization Address City/[facility]/ZIP Co de Phone Number [facility] [place] [address] * POC, GLUCOSE (06/18/2024 6:08 PM EST) Glucometer, POC 140 65 - 199 mg/dL 06/18/2024 6:09 PM EST [facility] Comment:Supplemental ranges: <140 mg/dL before meals <180 mg/dL all other times of the day. Blood CAPILLARY BLOOD / Unknown 06/18/2024 6:08 PM EST 06/18/2024 6:09 PM EST Bobby Loja MD POINT OF CARE TEST O NIKA [facility] [place] [address] * POC, GLUCOSE (06/18/2024 4:17 PM EST) Glucometer, POC 144 65 - 199 mg/dL 06/18/2024 4:17 PM EST [facility] Comment:Supplemental ranges: <140 mg/dL before meals <180 mg/dL all other times of the day. Blood CAPILLARY BLOOD / Unknown 06/18/2024 4:17 PM EST 06/18/2024 4:17 PM EST Bobby Loja MD POINT OF CARE TEST O RDERABLES Performing Organization Address [facility] Co de Phone Number [facility] [place] [address] * POC, GLUCOSE (06/18/2024 12:09 PM EST) Glucometer, POC 180 65 - 199 mg/dL 06/18/2024 12:09 PM EST [facility] Comment:Supplemental ranges: <140 mg/dL before meals <180 mg/dL all other times of the day. Blood CAPILLARY BLOOD / Unknown 06/18/2024 12:09 PM EST 06/18/2024 12:09 PM EST Bobby Loja MD POINT OF CARE TEST O NIKA Performing Organization Address [facility] Co de Phone Number [facility] [place] [address] * POC, GLUCOSE (06/18/2024 7:49 AM EST) Glucometer, POC 125 65 - 199 mg/dL 06/18/2024 7:50 AM EST [facility] Comment:Supplemental ranges: <140 mg/dL before meals <180 mg/dL all other times of the day. Blood CAPILLARY BLOOD / Unknown 06/18/2024 7:49 AM EST 06/18/2024 7:50 AM EST Bobby Loja MD POINT OF CARE TEST O NIKA Performing Organization Address [facility] Co de Phone Number [facility] [place] [address] * (ABNORMAL) Basic Metabolic Panel (06/18/2024 4:19 AM EST) Glucose 103 65 - 199 mg/dL 06/18/2024 5:03 AM EST [facility] Comment:Glucose Concentratio n >=200 mg/dL plus symptoms is consistent with Diabetes Mellitus. Blood Urea Nitrogen 43(H) 10 - 20 mg/dL 06/18/2024 5:03 AM EST [facility] Creatinine 1.45 0.80 - 1.50 mg/dL 06/18/2024 5:03 AM EST [facility] Sodium 131(L) 135 - 145 mMol/L 06/18/2024 5:03 AM [facility] Potassium 4.2 3.5 - 5.0 mMol/L 06/18/2024 5:03 AM [facility] Chloride 97(L) 98 - 107 mMol/L 06/18/2024 5:03 AM [facility] Carbon Dioxide 25 22 - 31 mMol/L 06/18/2024 5:03 AM [facility] Anion Gap 9 5 - 15 mMol/L 06/18/2024 5:03 AM [facility] Calcium 8.5 8.5 - 10.5 mg/dL 06/18/2024 5:03 AM [facility] Est Glomerular Filtration Rate - Male 53 mL/min/1. 73 m?? 06/18/2024 5:03 AM EST [facility] Comment: This patient's estimated [...] EST Keila Dayan CHOU CHEMISTRY ORDERABL ES [facility] [place] [address] * POC, GLUCOSE (06/18/2024 3:50 AM EST) Glucometer, POC 99 65 - 199 mg/dL 06/18/2024 3:51 AM EST [facility] Comment:Supplemental ranges: <140 mg/dL before meals <180 mg/dL all other times of the day. Blood CAPILLARY BLOOD / Unknown 06/18/2024 3:50 AM EST 06/18/2024 3:51 AM EST Bobby Loja MD POINT OF CARE TEST O NIKA [facility] [place] [address] * POC, GLUCOSE (06/17/2024 11:10 PM EST) Glucometer, POC 92 65 - 199 mg/dL 06/17/2024 11:10 PM EST [facility] Comment:Supplemental ranges: <140 mg/dL before meals <180 mg/dL all other times of the day. Blood CAPILLARY BLOOD / Unknown 06/17/2024 11:10 PM EST 06/17/2024 11:10 PM EST Bobby Loja MD POINT OF CARE TEST O NIKA Performing Organization Address [facility]/ZIP Co de Phone Number [facility] [place] [address] * POC, GLUCOSE (06/17/2024 7:54 PM EST) Glucometer, POC 126 65 - 199 mg/dL 06/17/2024 7:54 PM EST [facility] Comment:Supplemental ranges: <140 mg/dL before meals <180 mg/dL all other times of the day. Blood CAPILLARY BLOOD / Unknown 06/17/2024 7:54 PM EST 06/17/2024 7:54 PM EST Bobby Loja MD POINT OF CARE TEST O NIKA [facility] [place] [address] * POC, GLUCOSE (06/17/2024 4:07 PM EST) Glucometer, POC 141 65 - 199 mg/dL 06/17/2024 4:12 PM EST [facility] Comment:Supplemental ranges: <140 mg/dL before meals <180 mg/dL all other times of the day. Blood CAPILLARY BLOOD / Unknown 06/17/2024 4:07 PM EST 06/17/2024 4:12 PM EST Bobby Loja MD POINT OF CARE TEST O RDERABLES [facility] [place] [address] * XR Chest PA & Lateral (Generic) (06/17/2024 1:46 PM EST) WORKSTATION ID [id number] [facility] Anatomical Region Laterality Modality Chest N/A Digital [...] who have questions please contact the health caretaker that requested your imaging first. ? Narrative [...] patients who have questions please contactthe health caretaker that requested your imaging first. [facility] * (ABNORMAL) POC, GLUCOSE (06/17/2024 11:04 AM EST) [facility] Glucometer, POC 245(H) 65 - 199 mg/dL 06/17/2024 11:04 AM EST [facility] Comment:Supplemental ranges: <140 mg/dL before meals <180 mg/dL all other times of the day. Blood CAPILLARY BLOOD / Unknown 06/17/2024 11:04 AM EST 06/17/2024 11:04 AM EST Bobby Loja MD POINT OF CARE TEST O RDBECKIE Performing Organization Address [facility]/ZIP Co de Phone Number [facility] [place] [address] * POC, GLUCOSE (06/17/2024 7:49 AM EST) Glucometer, POC 141 65 - 199 mg/dL 06/17/2024 7:55 AM EST [facility] Comment:Supplemental ranges: <140 mg/dL before meals <180 mg/dL all other times of the day. Blood CAPILLARY BLOOD / Unknown 06/17/2024 7:49 AM EST 06/17/2024 7:55 AM EST Bobby Loja MD POINT OF CARE TEST O NIKA Performing Organization Address [facility] Co de Phone Number [facility] [place] [address] * POC, GLUCOSE (06/17/2024 4:16 AM EST) Glucometer, POC 139 65 - 199 mg/dL 06/17/2024 4:16 AM EST [facility] Comment:Supplemental ranges: <140 mg/dL before meals <180 mg/dL all other times of the day. Blood CAPILLARY BLOOD / Unknown 06/17/2024 4:16 AM EST 06/17/2024 4:17 AM EST Bobby Loja MD POINT OF CARE TEST O NIKA Performing Organization Address City/[facility]/ZIP Co de Phone Number [facility] [place] [address] * Lactate, Whole Blood (06/17/2024 2:39 AM EST) Lactate, Whole Blood 1.3 0.5 - 2.2 mmol/L 06/17/2024 2:46 AM EST [facility] Blood VENOUS BLOOD SPECIMEN / Unknown Venipuncture / Unknown 06/17/2024 2:39 AM EST 06/17/2024 2:43 AM EST Bobby Loja MD CHEMISTRY ORDERABLES [facility] [place] [address] * (ABNORMAL) Hemogram (06/17/2024 2:39 AM EST) [...] auto 0.0 % 06/17/2024 2:53 AM EST [facility] NRBC Absolute <0.01 <0.01 x10(3)/mc L 06/17/2024 2:53 AM [facility] Blood VENOUS BLOOD SPECIMEN / Unknown Venipuncture / Unknown 06/17/2024 2:39 AM EST 06/17/2024 2:43 AM EST Bobby Loja MD HEMATOLOGY ORDERABLE S [facility] [place] [address] * (ABNORMAL) Basic Metabolic Panel (06/17/2024 2:39 AM EST) Glucose 149 65 - 199 mg/dL 06/17/2024 3:14 AM [facility] Comment:Glucose Concentratio n >=200 mg/dL plus symptoms is consistent with Diabetes Mellitus. Blood Urea Nitrogen 42(H) 10 - 20 mg/dL 06/17/2024 3:14 AM [facility] Creatinine 1.52(H) 0.80 - 1.50 mg/dL 06/17/2024 3:14 AM [facility] Sodium 133(L) 135 - 145 mMol/L 06/17/2024 3:14 AM [facility] Potassium 4.5 3.5 - 5.0 mMol/L 06/17/2024 3:14 AM [facility] Chloride 101 98 - 107 mMol/L 06/17/2024 3:14 AM [facility] Carbon Dioxide 23 22 - 31 mMol/L 06/17/2024 3:14 AM [facility] Anion Gap 9 5 - 15 mMol/L 06/17/2024 3:14 AM [facility] Calcium 8.8 8.5 - 10.5 mg/dL 06/17/2024 3:14 AM [facility] Est Glomerular Filtration Rate - Male 50 mL/min/1. 73 m?? 06/17/2024 3:14 AM EST [facility] Comment: This patient's estimated [...] Loja MD CHEMISTRY ORDERABLES Performing Organization Address [facility] Co de Phone Number [facility] [place] [address] * (ABNORMAL) POC, GLUCOSE (06/17/2024 12:13 AM EST) Glucometer, POC 211(H) 65 - 199 mg/dL 06/17/2024 12:13 AM EST [facility] Comment:Supplemental ranges: <140 mg/dL before meals <180 mg/dL all other times of the day. Blood CAPILLARY BLOOD / Unknown 06/17/2024 12:13 AM EST 06/17/2024 12:14 AM EST Bobby Loja MD POINT OF CARE TEST O RDERABLES Performing Organization Address City/[facility]/ZIP Co de Phone Number [facility] [place] [address] * (ABNORMAL) POC, GLUCOSE (06/16/2024 7:22 PM EST) Glucometer, POC 229(H) 65 - 199 mg/dL 06/16/2024 7:22 PM EST [facility] Comment:Supplemental ranges: <140 mg/dL before meals <180 mg/dL all other times of the day. Blood CAPILLARY BLOOD / Unknown 06/16/2024 7:22 PM EST 06/16/2024 7:22 PM EST Narrative Authorizing Provider Result Saranya Loja MD POINT OF CARE TEST O RDERABLES Performing Organization Address City/[facility]/ZIP Co de Phone Number [facility] [place] [address] * (ABNORMAL) POC, GLUCOSE (06/16/2024 6:14 PM EST) Glucometer, POC 220(H) 65 - 199 mg/dL 06/16/2024 6:14 PM EST [facility] Comment:Supplemental ranges: <140 mg/dL before meals <180 mg/dL all other times of the day. Blood CAPILLARY BLOOD / Unknown 06/16/2024 6:14 PM EST 06/16/2024 6:14 PM EST Narrative Authorizing Provider Result Saranya Loja MD POINT OF CARE TEST O RDNICOLLEBLES Performing Organization Address City/[facility]/ZIP Co de Phone Number [facility] [place] [address] * Lactate, Whole Blood (06/16/2024 6:14 PM EST) Lactate, Whole Blood 1.8 0.5 - 2.2 mmol/L 06/16/2024 6:27 PM EST [facility] Blood VENOUS BLOOD SPECIMEN / Unknown Venipuncture / Unknown 06/16/2024 6:14 PM EST 06/16/2024 6:25 PM EST Narrative Authorizing Provider Result Saranya Loja MD CHEMISTRY ORDERABLES Performing Organization Address City/[facility]/ZIP Co de Phone Number [facility] [place] [address] * (ABNORMAL) POC, GLUCOSE (06/16/2024 4:14 PM EST) Glucometer, POC 240(H) 65 - 199 mg/dL 06/16/2024 4:14 PM EST [facility] Comment:Supplemental ranges: <140 mg/dL before meals <180 mg/dL all other times of the day. Blood CAPILLARY BLOOD / Unknown 06/16/2024 4:14 PM EST 06/16/2024 4:14 PM EST Bobby Loja MD POINT OF CARE TEST O NIKA Performing Organization Address [facility] Co de Phone Number [facility] [place] [address] * POC, GLUCOSE (06/16/2024 11:49 AM EST) Glucometer, POC 199 65 - 199 mg/dL 06/16/2024 11:49 AM EST [facility] Comment:Supplemental ranges: <140 mg/dL before meals <180 mg/dL all other times of the day. Blood CAPILLARY BLOOD / Unknown 06/16/2024 11:49 AM EST 06/16/2024 11:49 AM EST Bobby Loja MD POINT OF CARE TEST Abimael MAHER Performing Organization Address [facility] Co de Phone Number [facility] [place] [address] * (ABNORMAL) Hemogram (06/16/2024 11:44 AM EST) White Blood Cell 17.91(H) 4.00 - 9.50 x10(3)/mc L 06/16/2024 12:25 PM EST [facility] Red Blood Cell 3.47(L) 4.58 - 5.54 x10(6)/mc L 06/16/2024 12:25 PM EST [facility] Hemoglobin 10.5(L) 13.7 - 16.5 g/dL 06/16/2024 12:25 PM [facility] Hematocrit 33.1(L) 40.5 - 48.5 % 06/16/2024 12:25 PM EST [facility] Mean Cell Volume 95.4(H) 82.9 - 93.1 fL 06/16/2024 12:25 PM [facility] Mean Cell Hemoglobin 30.3 27.5 - 32.1 pg 06/16/2024 12:25 PM [facility] Mean Cell Hemoglobin Concentration 31.7(L) 32.0 - 35.7 g/dL 06/16/2024 12:25 PM [facility] Platelet 101(L) 145 - 357 x10(3)/mc L 06/16/2024 12:25 PM [facility] Mean Platelet Volume 10.6 7.6 - 12.9 fL 06/16/2024 12:25 PM [facility] RDW Standard Deviation 49.5(H) 36.0 - 45.0 fL 06/16/2024 12:25 PM [facility] RDW coefficient of variation 14.2(H) 11.4 - 13.8 % 06/16/2024 12:25 PM [facility] NRBC% auto 0.0 % 06/16/2024 12:25 PM [facility] NRBC Absolute <0.01 <0.01 x10(3)/mc L 06/16/2024 12:25 PM [facility] Blood VENOUS BLOOD SPECIMEN / Unknown Venipuncture / Unknown 06/16/2024 11:44 AM EST 06/16/2024 12:03 PM EST Bobby Loja MD HEMATOLOGY ORDERABLE S [facility] [place] [address] * Lactate, Whole Blood (06/16/2024 9:02 AM EST) Lactate, Whole Blood 1.8 0.5 - 2.2 mmol/L 06/16/2024 9:19 AM EST [facility] Blood VENOUS BLOOD SPECIMEN / Unknown Venipuncture / Unknown 06/16/2024 9:02 AM EST 06/16/2024 9:17 AM EST Narrative Authorizing Provider Result Saranya Loja MD CHEMISTRY ORDERABLES Performing Organization Address [facility] Co de Phone Number [facility] [place] [address] * POC, GLUCOSE (06/16/2024 7:44 AM EST) Glucometer, POC 129 65 - 199 mg/dL 06/16/2024 7:44 AM EST [facility] Comment:Supplemental ranges: <140 mg/dL before meals <180 mg/dL all other times of the day. Blood CAPILLARY BLOOD / Unknown 06/16/2024 7:44 AM EST 06/16/2024 7:44 AM EST Narrative Authorizing Provider Result Saranya Loja MD POINT OF CARE TEST O RDERABLES Performing Organization Address [facility] Phone Number [facility] [place] [address] * POC, GLUCOSE (06/16/2024 4:01 AM EST) Glucometer, POC 158 65 - 199 mg/dL 06/16/2024 4:01 AM EST [facility] Comment:Supplemental ranges: <140 mg/dL before meals <180 mg/dL all other times of the day. Blood CAPILLARY BLOOD / Unknown 06/16/2024 4:01 AM EST 06/16/2024 4:01 AM EST Narrative Authorizing Provider Result Saranya Loja MD POINT OF CARE TEST O RDERABLES Performing Organization Address [facility] Co de Phone Number [facility] [place] [address] * (ABNORMAL) Basic Metabolic Panel (06/16/2024 2:23 AM EST) Glucose 177 65 - 199 mg/dL 06/16/2024 3:13 AM EST [facility] Comment:Glucose Concentratio n >=200 mg/dL plus symptoms is consistent with Diabetes Mellitus. Blood Urea Nitrogen 37(H) 10 - 20 mg/dL 06/16/2024 3:13 AM [facility] Creatinine 2.10(H) 0.80 - 1.50 mg/dL 06/16/2024 3:13 AM [facility] Sodium 132(L) 135 - 145 mMol/L 06/16/2024 3:13 AM [facility] Potassium 4.5 3.5 - 5.0 mMol/L 06/16/2024 3:13 AM [facility] Chloride 99 98 - 107 mMol/L 06/16/2024 3:13 AM [facility] Carbon Dioxide 22 22 - 31 mMol/L 06/16/2024 3:13 AM [facility] Anion Gap 11 5 - 15 mMol/L 06/16/2024 3:13 AM [facility] Calcium 9.0 8.5 - 10.5 mg/dL 06/16/2024 3:13 AM [facility] Est Glomerular Filtration Rate - Male 34 mL/min/1. 73 m?? 06/16/2024 3:13 AM [facility] Comment: This patient's estimated GFR [...] AM EST Bobby Loja MD CHEMISTRY ORDERABLES [facility] [place] [id number] * POC, GLUCOSE (06/16/2024 2:21 AM EST) Glucometer, POC 176 65 - 199 mg/dL 06/16/2024 2:31 AM EST [facility] Comment:Supplemental ranges: <140 mg/dL before meals <180 mg/dL all other times of the day. Blood CAPILLARY BLOOD / Unknown 06/16/2024 2:21 AM EST 06/16/2024 2:31 AM EST Bobby Loja MD POINT OF CARE TEST O NIKA Performing Organization Address City/[facility] Co de Phone Number [facility] [place] [address] * (ABNORMAL) POC, GLUCOSE (06/16/2024 12:09 AM EST) Glucometer, POC 222(H) 65 - 199 mg/dL 06/16/2024 12:09 AM EST [facility] Comment:Supplemental ranges: <140 mg/dL before meals <180 mg/dL all other times of the day. Blood CAPILLARY BLOOD / Unknown 06/16/2024 12:09 AM EST 06/16/2024 12:09 AM EST Bobby Loja MD POINT OF CARE TEST O NIKA [facility] [place] [address] * (ABNORMAL) POC, GLUCOSE (06/15/2024 10:07 PM EST) Glucometer, POC 320(H) 65 - 199 mg/dL 06/15/2024 10:07 PM EST [facility] Comment:Supplemental ranges: <140 mg/dL before meals <180 mg/dL all other times of the day. Blood CAPILLARY BLOOD / Unknown 06/15/2024 10:07 PM EST 06/15/2024 10:07 PM EST Bobby Loja MD POINT OF CARE TEST O RDERAPIETER Performing Organization Address [facility] Co de Phone Number [facility] [place] [address] * (ABNORMAL) POC, GLUCOSE (06/15/2024 7:56 PM EST) Glucometer, POC 304(H) 65 - 199 mg/dL 06/15/2024 7:56 PM EST [facility] Comment:Supplemental ranges: <140 mg/dL before meals <180 mg/dL all other times of the day. Blood CAPILLARY BLOOD / Unknown 06/15/2024 7:56 PM EST 06/15/2024 7:56 PM EST Bobby Loja MD POINT OF CARE TEST O NIKA Performing Organization Address [facility] de Phone Number [facility] [place] [address] * (ABNORMAL) POC, GLUCOSE (06/15/2024 7:52 PM EST) Glucometer, POC 288(H) 65 - 199 mg/dL 06/15/2024 7:52 PM EST [facility] Comment:Supplemental ranges: <140 mg/dL before meals <180 mg/dL all other times of the day. Blood CAPILLARY BLOOD / Unknown 06/15/2024 7:52 PM EST 06/15/2024 7:52 PM EST Bobby Loja MD POINT OF CARE TEST O NIKA Performing Organization Address [facility] Co de Phone Number [facility] [place] [address] * POC, GLUCOSE (06/15/2024 4:21 PM EST) Glucometer, POC 192 65 - 199 mg/dL 06/15/2024 4:21 PM EST [facility] Comment:Supplemental ranges: <140 mg/dL before meals <180 mg/dL all other times of the day. Blood CAPILLARY BLOOD / Unknown 06/15/2024 4:21 PM EST 06/15/2024 4:21 PM EST Bobby Loja MD POINT OF CARE TEST O NIKA Performing Organization Address [facility] Co de Phone Number [facility] [place] [address] * POC, GLUCOSE (06/15/2024 3:27 PM EST) Glucometer, POC 155 65 - 199 mg/dL 06/15/2024 3:27 PM EST [facility] Comment:Supplemental ranges: <140 mg/dL before meals <180 mg/dL all other times of the day. Blood CAPILLARY BLOOD / Unknown 06/15/2024 3:27 PM EST 06/15/2024 3:27 PM EST Bobby Loja MD POINT OF CARE TEST O NIKA Performing Organization Address [facility] Co de Phone Number [facility] [place] [address] * POC, GLUCOSE (06/15/2024 2:23 PM EST) Glucometer, POC 160 65 - 199 mg/dL 06/15/2024 2:23 PM EST [facility] Comment:Supplemental ranges: <140 mg/dL before meals <180 mg/dL all other times of the day. Blood CAPILLARY BLOOD / Unknown 06/15/2024 2:23 PM EST 06/15/2024 2:23 PM EST Bobby Loja MD POINT OF CARE TEST Abimael MAHER Performing Organization Address City/[facility] Co de Phone Number [facility] [place] [address] * POC, GLUCOSE (06/15/2024 1:26 PM EST) Glucometer, POC 167 65 - 199 mg/dL 06/15/2024 1:26 PM EST [facility] Comment:Supplemental ranges: <140 mg/dL before meals <180 mg/dL all other times of the day. Blood CAPILLARY BLOOD / Unknown 06/15/2024 1:26 PM EST 06/15/2024 1:26 PM EST Bobby Loja MD POINT OF CARE TEST O NIKA Performing Organization Address City/[facility]/ZIP Co de Phone Number [facility] [place] [address] * (ABNORMAL) POC, GLUCOSE (06/15/2024 12:55 PM EST) Glucometer, POC 210(H) 65 - 199 mg/dL 06/15/2024 12:55 PM EST [facility] Comment:Supplemental ranges: <140 mg/dL before meals <180 mg/dL all other times of the day. Blood CAPILLARY BLOOD / Unknown 06/15/2024 12:55 PM EST 06/15/2024 12:55 PM EST Bobby Loja MD POINT OF CARE TEST O NIKA Performing Organization Address City/[facility]/ZIP Co de Phone Number [facility] [place] [address] * (ABNORMAL) POC, GLUCOSE (06/15/2024 11:29 AM EST) Glucometer, POC 220(H) 65 - 199 mg/dL 06/15/2024 11:29 AM EST [facility] Comment:Supplemental ranges: <140 mg/dL before meals <180 mg/dL all other times of the day. Blood CAPILLARY BLOOD / Unknown 06/15/2024 11:29 AM EST 06/15/2024 11:29 AM EST Bobby Loja MD POINT OF CARE TEST O NIKA [facility] [place] [address] * (ABNORMAL) Basic Metabolic Panel (06/15/2024 11:23 AM EST) Glucose 215(H) 65 - 199 mg/dL 06/15/2024 12:08 PM [facility] Comment:Glucose Concentratio n >=200 mg/dL plus symptoms is consistent with Diabetes Mellitus. Blood Urea Nitrogen 24(H) 10 - 20 mg/dL 06/15/2024 12:08 PM [facility] Creatinine 1.54(H) 0.80 - 1.50 mg/dL 06/15/2024 12:08 PM [facility] Sodium 135 135 - 145 mMol/L 06/15/2024 12:08 PM [facility] Potassium 4.5 3.5 - 5.0 mMol/L 06/15/2024 12:08 PM [facility] Chloride 105 98 - 107 mMol/L 06/15/2024 12:08 PM [facility] Carbon Dioxide 19(L) 22 - 31 mMol/L 06/15/2024 12:08 PM [facility] Anion Gap 11 5 - 15 mMol/L 06/15/2024 12:08 PM [facility] Calcium 8.3(L) 8.5 - 10.5 mg/dL 06/15/2024 12:08 PM [facility] Est Glomerular Filtration Rate - Male 49 mL/min/1. 73 m?? 06/15/2024 12:08 PM [facility] Comment: This patient's estimated GFR [...] Loja MD CHEMISTRY ORDERABLES Performing Organization Address [facility] Co de Phone Number [facility] [place] [address] * POC, GLUCOSE (06/15/2024 10:29 AM EST) Glucometer, POC 189 65 - 199 mg/dL 06/15/2024 10:29 AM EST [facility] Comment:Supplemental ranges: <140 mg/dL before meals <180 mg/dL all other times of the day. Blood CAPILLARY BLOOD / Unknown 06/15/2024 10:29 AM EST 06/15/2024 10:29 AM EST Bobby Loja MD POINT OF CARE TEST O RDERABLES Performing Organization Address [facility] Phone Number [facility] [place] [address] * POC, GLUCOSE (06/15/2024 9:45 AM EST) Glucometer, POC 178 65 - 199 mg/dL 06/15/2024 9:45 AM EST [facility] Comment:Supplemental ranges: <140 mg/dL before meals <180 mg/dL all other times of the day. Blood CAPILLARY BLOOD / Unknown 06/15/2024 9:45 AM EST 06/15/2024 9:45 AM EST Narrative Authorizing Provider Result Saranya Loja MD POINT OF CARE TEST O RDERABLES Performing Organization Address [facility] Co de Phone Number [facility] [place] [address] * (ABNORMAL) Cooximetry, POC (06/15/2024 9:31 AM EST) pO2, Coox 38 mmHg 06/15/2024 9:34 AM EST [facility] Hemoglobin, Coox 12.9(L) 13.7 [...] Coox 0.3 <=1.5 % 06/15/2024 9:34 AM [facility] Blood (Mixed Venous) 06/15/2024 9:31 AM EST 06/15/2024 9:34 AM EST Bobby Loja MD POINT OF CARE TEST O NIKA Performing Organization Address [facility] Co de Phone Number [facility] [place] [address] * Cooximetry, POC (06/15/2024 9:22 AM EST) pO2, Coox 30 mmHg 06/15/2024 9:25 AM [facility] Hemoglobin, Coox 06/15/2024 9:25 AM [facility] Comment:QUES Oxyhemoglobin, Coox 06/15/2024 9:25 AM [facility] Comment:QUES Carboxyhemoglo bin, Coox 06/15/2024 9:25 AM [facility] Comment:QUES Methemoglobin, Coox 06/15/2024 9:25 AM [facility] Comment:QUES Blood (Mixed Venous) 06/15/2024 9:22 AM EST 06/15/2024 9:25 AM EST Bobby Loja MD POINT OF CARE TEST O NIKA Performing Organization Address City/State/[facility] Co de Phone Number [facility] [place] [address] * (ABNORMAL) Blood Gas, Arterial POC (06/15/2024 [...] 3.5 - 5.0 mmol/L 06/15/2024 9:21 AM [facility] Chloride, Arterial 106 98 - 107 mmol/L 06/15/2024 9:21 AM [facility] Lactate, Arterial 1.7 0.5 - 2.2 mmol/L 06/15/2024 9:21 AM EST [facility] Flow Rate 2.0 L/min 06/15/2024 9:21 AM [facility] IONIZED CALCIUM, ARTERIAL 1.14(L) 1.15 - 1.33 mmol/L 06/15/2024 9:21 AM [facility] Glucose, Arterial 193 65 - 199 mg/dL 06/15/2024 9:21 AM [facility] Comment:Glucose Concentratio n >=200 mg/dL plus symptoms is consistent with Diabetes Mellitus. Blood ARTERIAL BLOOD / Unknown 06/15/2024 9:19 AM EST 06/15/2024 9:20 AM EST Bobby Loja MD POINT OF CARE TEST O RDERAPIETER Performing Organization Address City/[facility]/ZIP Co de Phone Number [facility] [place] [address] * (ABNORMAL) POC, GLUCOSE (06/15/2024 8:37 AM EST) Glucometer, POC 204(H) 65 - 199 mg/dL 06/15/2024 8:37 AM EST [facility] Comment:Supplemental ranges: <140 mg/dL before meals <180 mg/dL all other times of the day. Blood CAPILLARY BLOOD / Unknown 06/15/2024 8:37 AM EST 06/15/2024 8:37 AM EST Bobby Loja MD POINT OF CARE TEST O INKA Performing Organization Address City/[facility]/ZIP Co de Phone Number [facility] [place] [address] * POC, GLUCOSE (06/15/2024 7:37 AM EST) Glucometer, POC 199 65 - 199 mg/dL 06/15/2024 7:37 AM EST [facility] Comment:Supplemental ranges: <140 mg/dL before meals <180 mg/dL all other times of the day. Blood CAPILLARY BLOOD / Unknown 06/15/2024 7:37 AM EST 06/15/2024 7:38 AM EST Bobby Loja MD POINT OF CARE TEST O NIKA Performing Organization Address [facility] Co de Phone Number [facility] [place] [address] * (ABNORMAL) POC, GLUCOSE (06/15/2024 7:01 AM EST) Glucometer, POC 203(H) 65 - 199 mg/dL 06/15/2024 7:01 AM EST [facility] Comment:Supplemental ranges: <140 mg/dL before meals <180 mg/dL all other times of the day. Blood CAPILLARY BLOOD / Unknown 06/15/2024 7:01 AM EST 06/15/2024 7:01 AM EST Bobby Loja MD POINT OF CARE TEST O NIKA Performing Organization Address [facility] Co de Phone Number [facility] [place] [address] * XR Chest One View (06/15/2024 6:31 AM EST) WORKSTATION ID [id number] RAD Anatomical Region Laterality Modality Chest N/A [...] who have questions please contact the health caretaker that requested your imaging first. ? Electronically signed by: Stuart Aponte MD, [facility] ??([phone]), at 06/15/2024 10:38 AM Narrative 06/15/2024 10:38 [...] patients who have questions please contactthe health caretaker that requested your imaging first. Bobby Loja MD IMG DX ORDERABLES * POC, GLUCOSE (06/15/2024 6:02 AM EST) [facility] Glucometer, POC 179 65 - 199 mg/dL 06/15/2024 6:02 AM EST [facility] Comment:Supplemental ranges: <140 mg/dL before meals <180 mg/dL all other times of the day. Blood CAPILLARY BLOOD / Unknown 06/15/2024 6:02 AM EST 06/15/2024 6:02 AM EST Bobby Loja MD POINT OF CARE TEST O NIKA Performing Organization Address City/[facility]/ZIP Co de Phone Number [facility] [place] [address] * POC, GLUCOSE (06/15/2024 5:06 AM EST) Glucometer, POC 160 65 - 199 mg/dL 06/15/2024 5:06 AM EST [facility] Comment:Supplemental ranges: <140 mg/dL before meals <180 mg/dL all other times of the day. Blood CAPILLARY BLOOD / Unknown 06/15/2024 5:06 AM EST 06/15/2024 5:06 AM EST Bobby Loja MD POINT OF CARE TEST O NIKA Performing Organization Address City/[facility] Co de Phone Number [facility] [place] [address] * POC, GLUCOSE (06/15/2024 4:05 AM EST) Glucometer, POC 160 65 - 199 mg/dL 06/15/2024 4:06 AM EST [facility] Comment:Supplemental ranges: <140 mg/dL before meals <180 mg/dL all other times of the day. Blood CAPILLARY BLOOD / Unknown 06/15/2024 4:05 AM EST 06/15/2024 4:06 AM EST Narrative Authorizing Provider Result Saranya Loja MD POINT OF CARE TEST O NIKA [facility] [place] [address] * POC, GLUCOSE (06/15/2024 3:07 AM EST) Glucometer, POC 151 65 - 199 mg/dL 06/15/2024 3:07 AM [facility] Comment:Supplemental ranges: <140 mg/dL before meals <180 mg/dL all other times of the day. Blood CAPILLARY BLOOD / Unknown 06/15/2024 3:07 AM EST 06/15/2024 3:07 AM EST Bobby Loja MD POINT OF CARE TEST O NIKA [facility] [place] [address] * (ABNORMAL) Basic Metabolic Panel (06/15/2024 1:48 AM EST) Glucose 140 65 - 199 mg/dL 06/15/2024 2:38 AM [facility] Comment:Glucose Concentratio n >=200 mg/dL plus symptoms is consistent with Diabetes Mellitus. Blood Urea Nitrogen 21(H) 10 - 20 mg/dL 06/15/2024 2:38 AM [facility] Creatinine 1.27 0.80 - 1.50 mg/dL 06/15/2024 2:38 AM [facility] Sodium 140 135 - 145 mMol/L 06/15/2024 2:38 AM [facility] Potassium 4.4 3.5 - 5.0 mMol/L 06/15/2024 2:38 AM [facility] Chloride 108(H) 98 - 107 mMol/L 06/15/2024 2:38 AM [facility] Carbon Dioxide 23 22 - 31 mMol/L 06/15/2024 2:38 AM [facility] Anion Gap 9 5 - 15 mMol/L 06/15/2024 2:38 AM [facility] Calcium 8.3(L) 8.5 - 10.5 mg/dL 06/15/2024 2:38 AM [facility] Est Glomerular Filtration Rate - Male 62 mL/min/1. 73 m?? 06/15/2024 2:38 AM [facility] Comment: This patient's estimated GFR [...] City/State/[facility] Co de Phone Number [facility] [place] [address] * (ABNORMAL) CBC (with Diff) (06/15/2024 1:48 AM EST) White Blood Cell 11.71(H) 4.00 - 9.50 x10(3)/mc L 06/15/2024 2:13 AM EST [facility] Red Blood Cell 4.14(L) [...] - 3.20 x10(3)/mc L 06/15/2024 2:13 AM [facility] Monocyte % 11.4 % 06/15/2024 2:13 AM [facility] Monocyte Absolute 1.33(H) 0.30 - 0.90 x10(3)/mc L 06/15/2024 2:13 AM [facility] Eos % 0.2 % 06/15/2024 2:13 AM [facility] Eos Absolute <0.04 0.00 - 0.40 x10(3)/mc L 06/15/2024 2:13 AM [facility] Basophil % 0.2 % 06/15/2024 2:13 AM EST [facility] Baso Absolute <0.04 0.00 - 0.10 x10(3)/mc L 06/15/2024 2:13 AM EST [facility] Immature Gran % 0.5 % 2:13 AM EST [facility] Immature Gran Absolute 0.06(H) 0.00 - 0.04 x10(3)/mc L 06/15/2024 2:13 AM EST [facility] Blood VENOUS BLOOD SPECIMEN / Unknown Venipuncture / Unknown 06/15/2024 1:48 AM EST 06/15/2024 1:52 AM EST Bobby Loja MD HEMATOLOGY ORDERABLE S [facility] [place] [address] * (ABNORMAL) Troponin - Single (06/15/2024 1:48 AM EST) Troponin-T, High Sensitivity 667(H) <=22 ng/L 06/15/2024 2:22 AM EST [facility] Comment: This patient's troponin [...] troponin value can be found in the [facility] Test Catalog Troponin - [email or web address]/catalogs/565/files/[email or web address] Reference: Fourth [place] Definition of Myocardial Infarction. Journal of the [place] [employer] 2018;72:7706-5553 Blood VENOUS BLOOD SPECIMEN / Unknown Venipuncture / Unknown 06/15/2024 1:48 AM EST 06/15/2024 1:52 AM EST Bobby Loja MD CHEMISTRY ORDERABLES [facility] [place] [address] * (ABNORMAL) Blood Gas, Arterial POC (06/15/2024 1:46 AM EST) pH, Arterial 7.33(L) 7.35 - 7.45 06/15/2024 1:47 AM [facility] PCO2, Arterial 40 35 - 45 mmHg 06/15/2024 1:47 AM [facility] PO2, Arterial 131(H) 85 - 104 mmHg 06/15/2024 1:47 AM [facility] Bicarbonate, Arterial 20.7 20.0 - 26.0 mmol/L 06/15/2024 1:47 AM [facility] Base Excess, Arterial -5.2(L) -3.0 - 3.0 mmol/L 06/15/2024 1:47 AM [facility] Hemoglobin, Arterial 13.4(L) 13.7 - 16.5 g/dL 06/15/2024 1:47 AM [facility] Oxyhemoglobin, Arterial 97.9(H) 94.0 - 97.0 % 06/15/2024 1:47 AM [facility] Carboxyhemoglobin , Arterial 0.5 % 06/15/2024 1:47 AM [facility] Comment: Nonsmokers: 0.5-1.5% COHB ?? Smokers: Variable ??but usually less than 10% ?? Toxic: 20-30% COHB ?? Lethal: Greater than 60% COHB Methemoglobin, Arterial 0.3 <=1.5 % 06/15/2024 1:47 AM [facility] Sodium, Arterial 139 135 - 145 mmol/L 06/15/2024 1:47 AM [facility] Potassium, Arterial 4.2 3.5 - 5.0 mmol/L 06/15/2024 1:47 AM [facility] Chloride, Arterial 107 98 - 107 mmol/L 06/15/2024 1:47 AM [facility] Lactate, Arterial 1.8 0.5 - 2.2 mmol/L 06/15/2024 1:47 AM [facility] Fraction of Inspired Oxygen 40 % 06/15/2024 1:47 AM [facility] PF Ratio 328 Ratio 06/15/2024 1:47 AM [facility] Comment:PF ratio calculated using the non-temperature corrected pO2 result. IONIZED CALCIUM, ARTERIAL 1.17 1.15 - 1.33 mmol/L 06/15/2024 1:47 AM [facility] Glucose, Arterial 127 65 - 199 mg/dL 06/15/2024 1:47 AM [facility] Comment:Glucose Concentratio n >=200 mg/dL plus symptoms is consistent with Diabetes Mellitus. Blood ARTERIAL BLOOD / Unknown 06/15/2024 1:46 AM EST 06/15/2024 1:47 AM EST Bobby Loja MD POINT OF CARE TEST O RDERABLES [facility] [place] [address] * POC, GLUCOSE (06/15/2024 1:05 AM EST) Glucometer, POC 116 65 - 199 mg/dL 06/15/2024 1:05 AM [facility] Comment:Supplemental ranges: <140 mg/dL before meals <180 mg/dL all other times of the day. Blood CAPILLARY BLOOD / Unknown 06/15/2024 1:05 AM EST 06/15/2024 1:05 AM EST Bobby Loja MD POINT OF CARE TEST O NIKA Performing Organization Address [facility] Co de Phone Number [facility] [place] [address] * POC, GLUCOSE (06/15/2024 12:16 AM EST) Glucometer, POC 135 65 - 199 mg/dL 06/15/2024 12:16 AM EST [facility] Comment:Supplemental ranges: <140 mg/dL before meals <180 mg/dL all other times of the day. Blood CAPILLARY BLOOD / Unknown 06/15/2024 12:16 AM EST 06/15/2024 12:16 AM EST Bobby Loja MD POINT OF CARE TEST O NIKA Performing Organization Address [facility] de Phone Number [facility] [place] [address] * Potassium (06/14/2024 11:28 PM EST) Potassium 4.1 3.5 - 5.0 mMol/L 06/14/2024 11:54 PM EST [facility] Blood VENOUS BLOOD SPECIMEN / Unknown Venipuncture / Unknown 06/14/2024 11:28 PM EST 06/14/2024 11:34 PM EST Bobby Loja MD CHEMISTRY ORDERABLES Performing Organization Address [facility] Co de Phone Number [facility] [place] [address] * POC, GLUCOSE (06/14/2024 10:58 PM EST) Glucometer, POC 126 65 - 199 mg/dL 06/14/2024 10:59 PM EST [facility] Comment:Supplemental ranges: <140 mg/dL before meals <180 mg/dL all other times of the day. Blood CAPILLARY BLOOD / Unknown 06/14/2024 10:58 PM EST 06/14/2024 10:59 PM EST Bobby Loja MD POINT OF CARE TEST O NIKA Performing Organization Address [facility] Co de Phone Number [facility] [place] [address] * POC, GLUCOSE (06/14/2024 9:55 PM EST) Glucometer, POC 152 65 - 199 mg/dL 06/14/2024 9:56 PM EST [facility] Comment:Supplemental ranges: <140 mg/dL before meals <180 mg/dL all other times of the day. Blood CAPILLARY BLOOD / Unknown 06/14/2024 9:55 PM EST 06/14/2024 9:56 PM EST Bobby Loja MD POINT OF CARE TEST Abimael MAHER Performing Organization Address [facility] Co de Phone Number [facility] [place] [address] * POC, GLUCOSE (06/14/2024 8:54 PM EST) Glucometer, POC 151 65 - 199 mg/dL 06/14/2024 8:54 PM EST [facility] Comment:Supplemental ranges: <140 mg/dL before meals <180 mg/dL all other times of the day. Blood CAPILLARY BLOOD / Unknown 06/14/2024 8:54 PM EST 06/14/2024 8:54 PM EST Bobby Loja MD POINT OF CARE TEST Abimael MAHER Performing Organization Address City/[facility] Co de Phone Number [facility] [place] [address] * POC, GLUCOSE (06/14/2024 7:51 PM EST) Glucometer, POC 169 65 - 199 mg/dL 06/14/2024 7:52 PM EST [facility] Comment:Supplemental ranges: <140 mg/dL before meals <180 mg/dL all other times of the day. Blood CAPILLARY BLOOD / Unknown 06/14/2024 7:51 PM EST 06/14/2024 7:52 PM EST Narrative Authorizing Provider Result Saranya Loja MD POINT OF CARE TEST O NIKA Performing Organization Address [facility] Co de Phone Number [facility] [place] [address] * POC, GLUCOSE (06/14/2024 6:49 PM EST) Glucometer, POC 194 65 - 199 mg/dL 06/14/2024 6:50 PM EST [facility] Comment:Supplemental ranges: <140 mg/dL before meals <180 mg/dL all other times of the day. Blood CAPILLARY BLOOD / Unknown 06/14/2024 6:49 PM EST 06/14/2024 6:50 PM EST Narrative Authorizing Provider Result Saranya Loja MD POINT OF CARE TEST O NIKA Performing Organization Address [facility] Co de Phone Number [facility] [place] [address] * (ABNORMAL) Hemoglobin (06/14/2024 6:19 PM EST) Hemoglobin 13.1(L) 13.7 - 16.5 g/dL 06/14/2024 7:08 PM EST [facility] Blood VENOUS BLOOD SPECIMEN / Unknown Venipuncture / Unknown 06/14/2024 6:19 PM EST 06/14/2024 6:28 PM EST Narrative Authorizing Provider Result Saranya Loja MD HEMATOLOGY ORDERABLE S Performing Organization Address City/[facility]/ZIP Co de Phone Number [facility] [place] [address] * Potassium (06/14/2024 6:19 PM EST) Potassium 3.9 3.5 - 5.0 mMol/L 06/14/2024 6:52 PM EST [facility] Blood VENOUS BLOOD SPECIMEN / Unknown Venipuncture / Unknown 06/14/2024 6:19 PM EST 06/14/2024 6:28 PM EST Bobby Loja MD CHEMISTRY ORDERABLES Performing Organization Address [facility]/ZIP Co de Phone Number [facility] [place] [address] * (ABNORMAL) POC, GLUCOSE (06/14/2024 6:03 PM EST) [facility] Glucometer, POC 201(H) 65 - 199 mg/dL 06/14/2024 6:03 PM EST [facility] Comment:Supplemental ranges: <140 mg/dL before meals <180 mg/dL all other times of the day. Blood CAPILLARY BLOOD / Unknown 06/14/2024 6:03 PM EST 06/14/2024 6:03 PM EST Bobby Loja MD POINT OF CARE TEST O RDERABLES Performing Organization Address City/[facility]/ZIP Co de Phone Number [facility] [place] [address] * (ABNORMAL) Blood Gas, Arterial POC (06/14/2024 4:51 PM EST) [facility] Signature pH, Arterial 7.32(L) 7.35 - 7.45 06/14/2024 4:52 PM EST [facility] PCO2, Arterial 46(H) 35 - 45 mmHg 06/14/2024 4:52 PM EST [facility] PO2, Arterial 85 85 - 104 mmHg 06/14/2024 4:52 PM EST [facility] Bicarbonate, Arterial 23.1 20.0 - 26.0 mmol/L 06/14/2024 4:52 PM EST [facility] Base Excess, Arterial -3.1(L) -3.0 - 3.0 mmol/L 06/14/2024 4:52 PM EST [facility] Hemoglobin, Arterial 14.3 13.7 - 16.5 g/dL 06/14/2024 4:52 PM [facility] Oxyhemoglobin, Arterial 94.7 94.0 - 97.0 % 06/14/2024 4:52 PM [facility] Carboxyhemoglobin , Arterial 0.6 % 06/14/2024 4:52 PM [facility] Comment: Nonsmokers: 0.5-1.5% COHB ?? Smokers: Variable ??but usually less than 10% ?? Toxic: 20-30% COHB ?? Lethal: Greater than 60% COHB Methemoglobin, Arterial 0.0 <=1.5 % 06/14/2024 4:52 PM [facility] Sodium, Arterial 138 135 - 145 mmol/L 06/14/2024 4:52 PM [facility] Potassium, Arterial 4.1 3.5 - 5.0 mmol/L 06/14/2024 4:52 PM [facility] Chloride, Arterial 106 98 - 107 mmol/L 06/14/2024 4:52 PM [facility] Lactate, Arterial 1.3 0.5 - 2.2 mmol/L 06/14/2024 4:52 PM [facility] Fraction of Inspired Oxygen 40 % 06/14/2024 4:52 PM [facility] PF Ratio 213 Ratio 06/14/2024 4:52 PM [facility] Comment:PF ratio calculated using the non-temperature corrected pO2 result. IONIZED CALCIUM, ARTERIAL 1.16 1.15 - 1.33 mmol/L 06/14/2024 4:52 PM [facility] Glucose, Arterial 192 65 - 199 mg/dL 06/14/2024 4:52 PM [facility] Comment:Glucose Concentratio n >=200 mg/dL plus symptoms is consistent with Diabetes Mellitus. Blood ARTERIAL BLOOD / Unknown 06/14/2024 4:51 PM EST 06/14/2024 4:52 PM EST Bobby Loja MD POINT OF CARE TEST O RDERABLES [facility] [place] [address] * POC, GLUCOSE (06/14/2024 4:00 PM EST) Glucometer, POC 184 65 - 199 mg/dL 06/14/2024 4:01 PM EST [facility] Comment:Supplemental ranges: <140 mg/dL before meals <180 mg/dL all other times of the day. Blood CAPILLARY BLOOD / Unknown 06/14/2024 4:00 PM EST 06/14/2024 4:01 PM EST Bobby Loja MD POINT OF CARE TEST O RDERABLES Performing Organization Address [facility] de Phone Number [facility] [place] [address] * XR Chest One View (06/14/2024 3:05 PM EST) [facility] WORKSTATION ID [id number] RAD Anatomical Region Laterality Modality Chest N/A [...] who have questions please contact the health caretaker that requested your imaging first. ? Electronically signed by: Stuart Aponte MD, [facility] ??([phone]), at 06/14/2024 4:07 PM Narrative 06/14/2024 4:07 [...] patients who have questions please contactthe health caretaker that requested your imaging first. Bobby Loja MD IMG DX ORDERABLES * (ABNORMAL) Blood Gas, Arterial POC (06/14/2024 2:52 PM EST) pH, Arterial 7.28(LLL) 7.35 - 7.45 06/14/2024 2:53 PM [facility] PCO2, Arterial 50(H) 35 - 45 mmHg 06/14/2024 2:53 PM [facility] PO2, Arterial 510(H) 85 - 104 mmHg 06/14/2024 2:53 PM [facility] Bicarbonate, Arterial 22.8 20.0 - 26.0 mmol/L 06/14/2024 2:53 PM [facility] Base Excess, Arterial -4.0(L) -3.0 - 3.0 mmol/L 06/14/2024 2:53 PM [facility] Hemoglobin, Arterial 13.8 13.7 - 16.5 g/dL 06/14/2024 2:53 PM [facility] Oxyhemoglobin, Arterial 99.3(H) 94.0 - 97.0 % 06/14/2024 2:53 PM [facility] Carboxyhemoglobin , Arterial 0.6 % 06/14/2024 2:53 PM [facility] Comment: Nonsmokers: 0.5-1.5% COHB ?? Smokers: Variable ??but usually less than 10% ?? Toxic: 20-30% COHB ?? Lethal: Greater than 60% COHB Methemoglobin, Arterial 0.1 <=1.5 % 06/14/2024 2:53 PM [facility] Sodium, Arterial 138 135 - 145 mmol/L 06/14/2024 2:53 PM [facility] Potassium, Arterial 4.2 3.5 - 5.0 mmol/L 06/14/2024 2:53 PM [facility] Chloride, Arterial 106 98 - 107 mmol/L 06/14/2024 2:53 PM EST [facility] Lactate, Arterial 1.1 0.5 - 2.2 mmol/L 06/14/2024 2:53 PM EST [facility] Fraction of Inspired Oxygen 100 % 06/14/2024 2:53 PM EST [facility] PF Ratio 510 Ratio 06/14/2024 2:53 PM EST [facility] Comment:PF ratio calculated using the non-temperature corrected pO2 result. IONIZED CALCIUM, ARTERIAL 1.15 1.15 - 1.33 mmol/L 06/14/2024 2:53 PM EST [facility] Glucose, Arterial 169 65 - 199 mg/dL 06/14/2024 2:53 PM EST [facility] Comment:Glucose Concentratio n >=200 mg/dL plus symptoms is consistent with Diabetes Mellitus. Blood ARTERIAL BLOOD / Unknown 06/14/2024 2:52 PM EST 06/14/2024 2:53 PM EST Bobby Loja MD POINT OF CARE TEST O RDERABLES [facility] [place] [address] * EKG 12 Lead (06/14/2024 2:46 PM EST) Ventricular rate 80 BPM MUSE SYSTEM Atrial Rate 80 BPM MUSE SYSTEM P-R Interval 120 ms MUSE SYSTEM QRS Duration 108 ms MUSE SYSTEM Q-T Interval 454 ms MUSE SYSTEM QTC Calculated (Bezet) 523 ms MUSE SYSTEM Calculated P [place] 70 degrees MUSE SYSTEM Calculated R [place] 56 degrees MUSE SYSTEM Calculated T [place] 50 degrees MUSE SYSTEM INTERPRETATION AV dual-paced rhythm Abnormal ECG When compared with ECG of 03-JUN-2024 01:45, Vent. rate has increased BY ??17 BPM Confirmed by MD Marisol, Shaheen ([id number]) on 06/15/2024 1:57:23 PM MUSE SYSTEM 06/14/2024 2:46 PM EST 06/15/2024 1:57 PM EST Bobby Loja MD ECG ORDERABLES MUSE SYSTEM * Prepare RBC (06/14/2024 2:27 PM EST) Status Information Returned [facility] Product Identification RBC [facility] Unit Number [id number] [facility] Product Code [id number] [facility] Unit Blood Type OPOS [facility] Specimen Expiration Date [facility] Volulme 350 [facility] Issue Date / Time [facility] Status Information Returned [facility] Product Identification RBC [facility] Unit Number [id number] [facility] Product Code [id number] [facility] Unit Blood Type OPOS [facility] Specimen Expiration Date [facility] Volulme 350 [facility] Issue Date / Time [facility] Blood 06/14/2024 6:2 5 AM EST Haja Byrnes MD BLOOD BANK PRODUCT O RDERABLES [facility] [place] [address] * (ABNORMAL) Cooximetry, POC (06/14/2024 1:52 PM EST) pO2, Coox 58 mmHg 06/14/2024 1:55 PM EST [facility] Hemoglobin, Coox 12.6(L) 13.7 - 16.5 g/dL 06/14/2024 1:55 PM EST [facility] Oxyhemoglobin, Coox 85.5 % 06/14/2024 1:55 PM EST [facility] Carboxyhemoglo bin, Coox 0.3 % 06/14/2024 1:55 PM EST [facility] Comment: Nonsmokers: 0.5-1.5% COHB ?? Smokers: Variable ??but usually less than 10% ?? Toxic: 20-30% COHB ?? Lethal: Greater than 60% COHB Methemoglobin, Coox 0.6 <=1.5 % 06/14/2024 1:55 PM EST [facility] Blood (Mixed Venous) 06/14/2024 1:52 PM EST 06/14/2024 1:55 PM EST Haja Byrnes MD POINT OF CARE TEST O NIKA [facility] [place] [address] * (ABNORMAL) Blood Gas, Arterial POC (06/14/2024 12:47 PM EST) pH, Arterial 7.33(L) 7.35 - 7.45 06/14/2024 12:48 PM [facility] PCO2, Arterial 46(H) 35 - 45 mmHg 06/14/2024 12:48 PM [facility] PO2, Arterial 358(H) 85 - 104 mmHg 06/14/2024 12:48 PM [facility] Bicarbonate, Arterial 23.8 20.0 - 26.0 mmol/L 06/14/2024 12:48 PM [facility] Base Excess, Arterial -2.1 -3.0 - 3.0 mmol/L 06/14/2024 12:48 PM [facility] Hemoglobin, Arterial 11.7(L) 13.7 - 16.5 g/dL 06/14/2024 12:48 PM [facility] Oxyhemoglobin, Arterial 98.7(H) 94.0 - 97.0 % 06/14/2024 12:48 PM [facility] Carboxyhemoglobin , Arterial 0.3 % 06/14/2024 12:48 PM [facility] Comment: Nonsmokers: 0.5-1.5% COHB ?? Smokers: Variable ??but usually less than 10% ?? Toxic: 20-30% COHB ?? Lethal: Greater than 60% COHB Methemoglobin, Arterial 0.5 <=1.5 % 06/14/2024 12:48 PM EST [facility] Sodium, Arterial 135 135 - 145 mmol/L 06/14/2024 12:48 PM EST [facility] Potassium, Arterial 5.0 3.5 - 5.0 mmol/L 06/14/2024 12:48 PM EST [facility] Chloride, Arterial 106 98 - 107 mmol/L 06/14/2024 12:48 PM EST [facility] Lactate, Arterial 1.4 0.5 - 2.2 mmol/L 06/14/2024 12:48 PM EST [facility] IONIZED CALCIUM, ARTERIAL 1.09(L) 1.15 - 1.33 mmol/L 06/14/2024 12:48 PM [facility] Glucose, Arterial 157 65 - 199 mg/dL 06/14/2024 12:48 PM EST [facility] Comment:Glucose Concentratio n >=200 mg/dL plus symptoms is consistent with Diabetes Mellitus. Blood ARTERIAL BLOOD / Unknown 06/14/2024 12:47 PM EST 06/14/2024 12:48 PM EST Haja Byrnes MD POINT OF CARE TEST O RDERABLES [facility] [place] [address] * (ABNORMAL) Cooximetry, POC (06/14/2024 12:42 PM EST) pO2, Coox 71 mmHg 06/14/2024 12:45 PM EST [facility] Hemoglobin, Coox 11.6(L) 13.7 - 16.5 g/dL 06/14/2024 12:45 PM EST [facility] Oxyhemoglobin, Coox 91.5 % 06/14/2024 12:45 PM EST [facility] Carboxyhemoglo bin, Coox 0.3 % 06/14/2024 12:45 PM EST [facility] Comment: Nonsmokers: 0.5-1.5% COHB ?? Smokers: Variable ??but usually less than 10% ?? Toxic: 20-30% COHB ?? Lethal: Greater than 60% COHB Methemoglobin, Coox 0.4 <=1.5 % 06/14/2024 12:45 PM EST [facility] Blood (Mixed Venous) 06/14/2024 12:42 PM EST 06/14/2024 12:45 PM EST Haja Byrnes MD POINT OF CARE TEST O RDERABLES [facility] [place] [address] * (ABNORMAL) Platelet count (06/14/2024 12:30 PM EST) Platelet 73(L) 145 - 357 x10(3)/mcL 06/14/2024 12:54 PM EST [facility] Blood ARTERIAL BLOOD / Unknown 06/14/2024 12:30 PM EST Comment:Pre-op diagnosis: CAD Bobby Loja MD HEMATOLOGY ORDERABLE S Performing Organization Address City/[facility]/ZIP Co de Phone Number [facility] [place] [address] * (ABNORMAL) Hemoglobin and Hematocrit, blood (06/14/2024 12:30 PM EST) Hemoglobin 10.9(L) 13.7 - 16.5 g/dL 06/14/2024 12:54 PM EST [facility] Hematocrit 33.5(L) 40.5 - 48.5 % 06/14/2024 12:54 PM EST [facility] Comment:This result has been called to Danielle López by Satya Page on 06/14/2024 12:53:56, and has been read back. Blood ARTERIAL BLOOD / Unknown 06/14/2024 12:30 PM EST 06/14/2024 12:42 PM EST Comment:Pre-op diagnosis: CAD Bobby Loja MD HEMATOLOGY ORDERABLE S Performing Organization Address [facility] Co de Phone Number [facility] [place] [address] * APTT (06/14/2024 12:30 PM EST) Partial Thromboplastin Time 31 25 - 37 sec 06/14/2024 12:57 PM EST [facility] Comment: The PTT is NOT appropriate for heparin monitoring. Use the Anti-Xa level for heparin monitoring (HEP UFH) or LMWH monitoring (HEP LMW). A PTT less than 37 seconds generally indicates adequate hemostasis. Blood ARTERIAL BLOOD / Unknown 06/14/2024 12:30 PM EST 06/14/2024 12:42 PM EST Comment:Pre-op diagnosis: CAD Bobby Loja MD HEMATOLOGY ORDERABLE S Performing Organization Address [facility] de Phone Number [facility] [place] [address] * (ABNORMAL) Prothrombin Time (06/14/2024 12:30 PM EST) Prothrombin Time 16.8(H) 9.4 - 12.5 sec 06/14/2024 12:57 PM EST [facility] International Normalization Ratio 1.5 <=4.9 06/14/2024 12:57 PM EST [facility] Comment: An INR < [...] MD HEMATOLOGY ORDERABLE S Performing Organization Address [facility]/ZIP Co de Phone Number [facility] [place] [address] * Fibrinogen (06/14/2024 12:30 PM EST) Fibrinogen 211 200 - 393 mg/dL 06/14/2024 12:57 PM EST [facility] Comment: A fibrinogen level >100 mg/dL is adequate for hemostasis in most patients without underlying bleeding disorders. Blood ARTERIAL BLOOD / Unknown 06/14/2024 12:30 PM EST 06/14/2024 12:42 PM EST Comment:Pre-op diagnosis: CAD Bobby Loja MD HEMATOLOGY ORDERABLE S [facility] [place] [address] * (ABNORMAL) Blood Gas, Arterial POC (06/14/2024 12:15 PM EST) pH, Arterial 7.38 7.35 - 7.45 06/14/2024 12:16 PM EST [facility] PCO2, Arterial 40 35 - 45 mmHg 06/14/2024 12:16 PM [facility] Bicarbonate, Arterial 22.9 20.0 - 26.0 mmol/L 06/14/2024 12:16 PM [facility] Base Excess, Arterial -2.3 -3.0 - 3.0 mmol/L 06/14/2024 12:16 PM EST [facility] Hemoglobin, Arterial 11.4(L) 13.7 - 16.5 g/dL 06/14/2024 12:16 PM [facility] Oxyhemoglobin, Arterial 98.8(H) 94.0 - 97.0 % 06/14/2024 12:16 PM EST [facility] Carboxyhemoglobin , Arterial 0.3 % 06/14/2024 12:16 PM [facility] Comment: Nonsmokers: 0.5-1.5% COHB ?? Smokers: Variable ??but usually less than 10% ?? Toxic: 20-30% COHB ?? Lethal: Greater than 60% COHB Methemoglobin, Arterial 0.6 <=1.5 % 06/14/2024 12:16 PM [facility] Sodium, Arterial 134(L) 135 - 145 mmol/L 06/14/2024 12:16 PM [facility] Potassium, Arterial 5.4(H) 3.5 - 5.0 mmol/L 06/14/2024 12:16 PM [facility] Chloride, Arterial 105 98 - 107 mmol/L 06/14/2024 12:16 PM [facility] Lactate, Arterial 1.3 0.5 - 2.2 mmol/L 06/14/2024 12:16 PM [facility] IONIZED CALCIUM, ARTERIAL 1.08(L) 1.15 - 1.33 mmol/L 06/14/2024 12:16 PM [facility] Glucose, Arterial 161 65 - 199 mg/dL 06/14/2024 12:16 PM [facility] Comment:Glucose Concentratio n >=200 mg/dL plus symptoms is consistent with Diabetes Mellitus. Blood ARTERIAL BLOOD / Unknown 06/14/2024 12:15 PM EST 06/14/2024 12:16 PM EST Haja Byrnes MD POINT OF CARE TEST O RDERABLES [facility] [place] [address] * (ABNORMAL) Blood Gas, Arterial POC (06/14/2024 11:51 AM EST) pH, Arterial 7.40 7.35 - 7.45 06/14/2024 11:52 AM EST [facility] PCO2, Arterial 41 35 - 45 mmHg 06/14/2024 11:52 AM [facility] PO2, Arterial 332(H) 85 - 104 mmHg 06/14/2024 11:52 AM [facility] Bicarbonate, Arterial 24.7 20.0 - 26.0 mmol/L 06/14/2024 11:52 AM [facility] Base Excess, Arterial -0.1 -3.0 - 3.0 mmol/L 06/14/2024 11:52 AM [facility] Hemoglobin, Arterial 11.1(L) 13.7 - 16.5 g/dL 06/14/2024 11:52 AM [facility] Oxyhemoglobin, Arterial 98.7(H) 94.0 - 97.0 % 06/14/2024 11:52 AM [facility] Carboxyhemoglobin , Arterial 0.3 % 06/14/2024 11:52 AM [facility] Comment: Nonsmokers: 0.5-1.5% COHB ?? Smokers: Variable ??but usually less than 10% ?? Toxic: 20-30% COHB ?? Lethal: Greater than 60% COHB Methemoglobin, Arterial 0.4 <=1.5 % 06/14/2024 11:52 AM [facility] Sodium, Arterial 135 135 - 145 mmol/L 06/14/2024 11:52 AM [facility] Potassium, Arterial 5.7(H) 3.5 - 5.0 mmol/L 06/14/2024 11:52 AM [facility] Chloride, Arterial 105 98 - 107 mmol/L 06/14/2024 11:52 AM [facility] Lactate, Arterial 1.2 0.5 - 2.2 mmol/L 06/14/2024 11:52 AM [facility] IONIZED CALCIUM, ARTERIAL 1.10(L) 1.15 - 1.33 mmol/L 06/14/2024 11:52 AM [facility] Glucose, Arterial 148 65 - 199 mg/dL 06/14/2024 11:52 AM [facility] Comment:Glucose Concentratio n >=200 mg/dL plus symptoms is consistent with Diabetes Mellitus. Blood ARTERIAL BLOOD / Unknown 06/14/2024 11:51 AM EST 06/14/2024 11:52 AM EST Haja Byrnes MD POINT OF CARE TEST O RDERABLES [facility] [place] [address] * (ABNORMAL) Blood Gas, Arterial POC (06/14/2024 11:27 AM EST) pH, Arterial 7.38 7.35 - 7.45 06/14/2024 11:28 AM [facility] PCO2, Arterial 37 35 - 45 mmHg 06/14/2024 11:28 AM [facility] PO2, Arterial 348(H) 85 - 104 mmHg 06/14/2024 11:28 AM [facility] Bicarbonate, Arterial 21.1 20.0 - 26.0 mmol/L 06/14/2024 11:28 AM [facility] Base Excess, Arterial -4.1(L) -3.0 - 3.0 mmol/L 06/14/2024 11:28 AM [facility] Hemoglobin, Arterial 11.0(L) 13.7 - 16.5 g/dL 06/14/2024 11:28 AM [facility] Oxyhemoglobin, Arterial 98.7(H) 94.0 - 97.0 % 06/14/2024 11:28 AM [facility] Carboxyhemoglobin , Arterial 0.3 % 06/14/2024 11:28 AM [facility] Comment: Nonsmokers: 0.5-1.5% COHB ?? Smokers: Variable ??but usually less than 10% ?? Toxic: 20-30% COHB ?? Lethal: Greater than 60% COHB Methemoglobin, Arterial 0.4 <=1.5 % 06/14/2024 11:28 AM [facility] Sodium, Arterial 132(L) 135 - 145 mmol/L 06/14/2024 11:28 AM [facility] Potassium, Arterial 5.8(H) 3.5 - 5.0 mmol/L 06/14/2024 11:28 AM [facility] Chloride, Arterial 105 98 - 107 mmol/L 06/14/2024 11:28 AM [facility] Lactate, Arterial 1.1 0.5 - 2.2 mmol/L 06/14/2024 11:28 AM [facility] IONIZED CALCIUM, ARTERIAL 1.03(L) 1.15 - 1.33 mmol/L 06/14/2024 11:28 AM [facility] Glucose, Arterial 147 65 - 199 mg/dL 06/14/2024 11:28 AM [facility] Comment:Glucose Concentratio n >=200 mg/dL plus symptoms is consistent with Diabetes Mellitus. Blood ARTERIAL BLOOD / Unknown 06/14/2024 11:27 AM EST 06/14/2024 11:28 AM EST Haja Byrnes MD POINT OF CARE TEST O RDERABLES [facility] [place] [address] * (ABNORMAL) Scan, Peripheral Blood (06/14/2024 11:23 AM EST) Pathologist [facility] RBC Morphology Abnormal 06/14/2024 11:59 AM [facility] Platelet Estimate Decreased(A) Normal 06/14/2024 11:59 AM [facility] Blanca cells 1-5 /HPF 06/14/2024 11:59 AM [facility] Blood ARTERIAL BLOOD / Unknown 06/14/2024 11:23 AM EST 06/14/2024 11:27 AM EST Bobby Loja MD HEMATOLOGY ORDERABLE S [facility] [place] [address] * (ABNORMAL) Platelet count (06/14/2024 11:23 AM EST) Platelet 86(L) 145 - 357 x10(3)/mcL 06/14/2024 11:59 AM EST [facility] Blood ARTERIAL BLOOD / Unknown 06/14/2024 11:23 AM EST Comment:Pre-op diagnosis: CAD Bobby Loja MD HEMATOLOGY ORDERABLE S Performing Organization Address City/[facility]/ZIP Co de Phone Number [facility] [place] [address] * (ABNORMAL) Hemoglobin and Hematocrit, blood (06/14/2024 11:23 AM EST) Hemoglobin 9.8(L) 13.7 - 16.5 g/dL 06/14/2024 11:59 AM EST [facility] Comment:This result has been called to Danielle López by Satya Page on 06/14/2024 11:58:33. Hematocrit 30.5(L) 40.5 - 48.5 % 06/14/2024 11:59 AM EST [facility] Comment:This result has been called to Danielle López by Satya Page on 06/14/2024 11:58:40, and has been read back. Blood ARTERIAL BLOOD / Unknown 06/14/2024 11:23 AM EST 06/14/2024 11:27 AM EST Comment:Pre-op diagnosis: CAD Bobby Loja MD HEMATOLOGY ORDERABLE S [facility] [place] [address] * (ABNORMAL) Blood Gas, Arterial POC (06/14/2024 10:58 AM EST) pH, Arterial 7.38 7.35 - 7.45 06/14/2024 10:59 AM EST [facility] PCO2, Arterial 43 35 - 45 mmHg 06/14/2024 10:59 AM EST [facility] PO2, Arterial 401(H) 85 - 104 mmHg 06/14/2024 10:59 AM EST [facility] Bicarbonate, Arterial 24.8 20.0 - 26.0 mmol/L 06/14/2024 10:59 AM [facility] Base Excess, Arterial -0.5 -3.0 - 3.0 mmol/L 06/14/2024 10:59 AM [facility] Hemoglobin, Arterial 11.9(L) 13.7 - 16.5 g/dL 06/14/2024 10:59 AM [facility] Oxyhemoglobin, Arterial 99.0(H) 94.0 - 97.0 % 06/14/2024 10:59 AM [facility] Carboxyhemoglobin , Arterial 0.3 % 06/14/2024 10:59 AM [facility] Comment: Nonsmokers: 0.5-1.5% COHB ?? Smokers: Variable ??but usually less than 10% ?? Toxic: 20-30% COHB ?? Lethal: Greater than 60% COHB Methemoglobin, Arterial 0.3 <=1.5 % 06/14/2024 10:59 AM [facility] Sodium, Arterial 128(L) 135 - 145 mmol/L 06/14/2024 10:59 AM [facility] Potassium, Arterial 6.6(HHH) 3.5 - 5.0 mmol/L 06/14/2024 10:59 AM [facility] Chloride, Arterial 99 98 - 107 mmol/L 06/14/2024 10:59 AM [facility] Lactate, Arterial 1.3 0.5 - 2.2 mmol/L 06/14/2024 10:59 AM [facility] IONIZED CALCIUM, ARTERIAL 1.00(L) 1.15 - 1.33 mmol/L 06/14/2024 10:59 AM [facility] Glucose, Arterial 155 65 - 199 mg/dL 06/14/2024 10:59 AM [facility] Comment:Glucose Concentratio n >=200 mg/dL plus symptoms is consistent with Diabetes Mellitus. Blood ARTERIAL BLOOD / Unknown 06/14/2024 10:58 AM EST 06/14/2024 10:59 AM EST Haja Byrnes MD POINT OF CARE TEST O RDERAPIETER [facility] [place] [address] * (ABNORMAL) Blood Gas, Arterial POC (06/14/2024 10:26 AM EST) pH, Arterial 7.29(LLL) 7.35 - 7.45 06/14/2024 10:27 AM [facility] PCO2, Arterial 43 35 - 45 mmHg 06/14/2024 10:27 AM [facility] PO2, Arterial 369(H) 85 - 104 mmHg 06/14/2024 10:27 AM [facility] Bicarbonate, Arterial 19.9(L) 20.0 - 26.0 mmol/L 06/14/2024 10:27 AM [facility] Base Excess, Arterial -6.7(L) -3.0 - 3.0 mmol/L 06/14/2024 10:27 AM [facility] Hemoglobin, Arterial 12.6(L) 13.7 - 16.5 g/dL 06/14/2024 10:27 AM [facility] Oxyhemoglobin, Arterial 99.1(H) 94.0 - 97.0 % 06/14/2024 10:27 AM [facility] Carboxyhemoglobin , Arterial 0.1 % 06/14/2024 10:27 AM [facility] Comment: Nonsmokers: 0.5-1.5% COHB ?? Smokers: Variable ??but usually less than 10% ?? Toxic: 20-30% COHB ?? Lethal: Greater than 60% COHB Methemoglobin, Arterial 0.4 <=1.5 % 06/14/2024 10:27 AM [facility] Sodium, Arterial 129(L) 135 - 145 mmol/L 06/14/2024 10:27 AM [facility] Potassium, Arterial 5.0 3.5 - 5.0 mmol/L 06/14/2024 10:27 AM [facility] Chloride, Arterial 99 98 - 107 mmol/L 06/14/2024 10:27 AM [facility] Lactate, Arterial 0.9 0.5 - 2.2 mmol/L 06/14/2024 10:27 AM [facility] IONIZED CALCIUM, ARTERIAL 1.05(L) 1.15 - 1.33 mmol/L 06/14/2024 10:27 AM [facility] Glucose, Arterial 149 65 - 199 mg/dL 06/14/2024 10:27 AM [facility] Comment:Glucose Concentratio n >=200 mg/dL plus symptoms is consistent with Diabetes Mellitus. Blood ARTERIAL BLOOD / Unknown 06/14/2024 10:26 AM EST 06/14/2024 10:27 AM EST Haja Byrnes MD POINT OF CARE TEST O RDERABLES [facility] [place] [address] * (ABNORMAL) Blood Gas, Arterial POC (06/14/2024 10:25 AM EST) pH, Arterial 7.26(LLL) 7.35 - 7.45 06/14/2024 10:26 AM [facility] PCO2, Arterial 48(H) 35 - 45 mmHg 06/14/2024 10:26 AM [facility] Bicarbonate, Arterial 21.2 20.0 - 26.0 mmol/L 06/14/2024 10:26 AM [facility] Base Excess, Arterial -5.8(L) -3.0 - 3.0 mmol/L 06/14/2024 10:26 AM [facility] Hemoglobin, Arterial 12.5(L) 13.7 - 16.5 g/dL 06/14/2024 10:26 AM [facility] Oxyhemoglobin, Arterial 82.3(L) 94.0 - 97.0 % 06/14/2024 10:26 AM [facility] Carboxyhemoglobin , Arterial 0.5 % 06/14/2024 10:26 AM [facility] Comment: Nonsmokers: 0.5-1.5% COHB ?? Smokers: Variable ??but usually less than 10% ?? Toxic: 20-30% COHB ?? Lethal: Greater than 60% COHB Methemoglobin, Arterial 0.5 <=1.5 % 06/14/2024 10:26 AM [facility] Sodium, Arterial 131(L) 135 - 145 mmol/L 06/14/2024 10:26 AM [facility] Potassium, Arterial 4.6 3.5 - 5.0 mmol/L 06/14/2024 10:26 AM [facility] Chloride, Arterial 103 98 - 107 mmol/L 06/14/2024 10:26 AM [facility] Lactate, Arterial 0.8 0.5 - 2.2 mmol/L 06/14/2024 10:26 AM [facility] IONIZED CALCIUM, ARTERIAL 0.91(LLL) 1.15 - 1.33 mmol/L 06/14/2024 10:26 AM [facility] Glucose, Arterial 148 65 - 199 mg/dL 06/14/2024 10:26 AM [facility] Comment:Glucose Concentratio n >=200 mg/dL plus symptoms is consistent with Diabetes Mellitus. Blood ARTERIAL BLOOD / Unknown 06/14/2024 10:25 AM EST 06/14/2024 10:26 AM EST Haja Byrnes MD POINT OF CARE TEST O RDERABLES [facility] [place] [address] * Surgical Pathology (06/14/2024 9:53 AM EST) Case Report Surgical Pathology Report ? Case: [id number] ? Authorizing Provider: ??Bobby Loja, ? Collected: ? 06/14/2024 0953 ? Ordering Location: ? Main Operating Room [facility] ?? Received: ?06/14/2024 1413 ? [facility] ? Pathologist: ? Sandra [...] Inking: External surface inked black Sections/Process ing: Whiskey Proof Reader sections in 4 cassettes labeled A1-A4. cmk B. Heart, Atrial Appendage, Left, . B - Labeled/Fixative : Heart, atrial appendage, left, fresh. Quantity/Size: Single, 3.3 x 1.5 x 0.8 cm. Tissue Description: Portion of heart tissue consisting of rodriguez-white, semitranslucent, smooth endocardium with rodriguez-brown muscular myocardium and thin translucent epicardium with adherent adipose tissue. No areas of discoloration identified. Sections/Process ing: Whiskey Proof Reader sections in 1 cassette labeled B1. cmk 06/18/2024 10:18 AM [facility] Result Note Routine 06/18/2024 10:18 AM [facility] Tissue SOFT TISSUE MASS / Unknown 06/14/2024 9:53 AM EST 06/14/2024 2:13 PM EST Comment:Mediastinal mass Tissue specimen (specimen) LEFT ATRIAL APPENDAGE ABSENT / Unknown 06/14/2024 10:54 AM EST 06/14/2024 2:13 PM EST Comment:MARIALUISA Bobby Loja MD PATHOLOGY/CYTOLOGY O RDERABLES [facility] [place] [address] * Cooximetry, POC (06/14/2024 9:00 AM EST) pO2, Coox 57 mmHg 06/14/2024 9:04 AM EST [facility] PO2 Corrected, COOX 50 mmHg 06/14/2024 9:04 AM EST [facility] Hemoglobin, Coox 14.3 13.7 - 16.5 g/dL 06/14/2024 9:04 AM [facility] Oxyhemoglobin, Coox 86.2 % 06/14/2024 9:04 AM EST [facility] Carboxyhemoglobi n, Coox 0.3 % 06/14/2024 9:04 AM EST [facility] Comment: Nonsmokers: 0.5-1.5% COHB ?? Smokers: Variable ??but usually less than 10% ?? Toxic: 20-30% COHB ?? Lethal: Greater than 60% COHB Methemoglobin, Coox 0.3 <=1.5 % 06/14/2024 9:04 AM EST [facility] Temperature Coox 35.2 C 06/14/20 24 9:04 AM EST [facility] Blood (Mixed Venous) 06/14/2024 9:00 AM EST 06/14/2024 9:04 AM EST Haja Byrnes MD POINT OF CARE TEST O RDERAPIETER [facility] [place] [address] * (ABNORMAL) Blood Gas, Arterial POC (06/14/2024 8:39 AM EST) pH, Arterial 7.37 7.35 - 7.45 06/14/2024 8:40 AM [facility] PCO2, Arterial 42 35 - 45 mmHg 06/14/2024 8:40 AM [facility] PO2, Arterial 341(H) 85 - 104 mmHg 06/14/2024 8:40 AM [facility] Bicarbonate, Arterial 23.7 20.0 - 26.0 mmol/L 06/14/2024 8:40 AM [facility] Base Excess, Arterial -1.6 -3.0 - 3.0 mmol/L 06/14/2024 8:40 AM [facility] Hemoglobin, Arterial 15.2 13.7 - 16.5 g/dL 06/14/2024 8:40 AM [facility] Oxyhemoglobin, Arterial 99.2(H) 94.0 - 97.0 % 06/14/2024 8:40 AM [facility] Carboxyhemoglobin , Arterial 0.1 % 06/14/2024 8:40 AM [facility] Comment: Nonsmokers: 0.5-1.5% COHB ?? Smokers: Variable ??but usually less than 10% ?? Toxic: 20-30% COHB ?? Lethal: Greater than 60% COHB Methemoglobin, Arterial 0.3 <=1.5 % 06/14/2024 8:40 AM [facility] Sodium, Arterial 136 135 - 145 mmol/L 06/14/2024 8:40 AM [facility] Potassium, Arterial 4.2 3.5 - 5.0 mmol/L 06/14/2024 8:40 AM [facility] Chloride, Arterial 102 98 - 107 mmol/L 06/14/2024 8:40 AM [facility] Lactate, Arterial 0.9 0.5 - 2.2 mmol/L 06/14/2024 8:40 AM [facility] IONIZED CALCIUM, ARTERIAL 1.17 1.15 - 1.33 mmol/L 06/14/2024 8:40 AM [facility] Glucose, Arterial 121 65 - 199 mg/dL 06/14/2024 8:40 AM EST [facility] Comment:Glucose Concentratio n >=200 mg/dL plus symptoms is consistent with Diabetes Mellitus. Blood ARTERIAL BLOOD / Unknown 06/14/2024 8:39 AM EST 06/14/2024 8:40 AM EST Haja Byrnes MD POINT OF CARE TEST O RDERABLES [facility] [place] [address] * Transesophageal Echo/OR (06/14/2024 7:20 AM EST) Anatomical Region Laterality Modality Cardiac Other 06/14/2024 7:20 AM EST Narrative 06/14/2024 4:36 PM EST Version: 2 Study ID: [id number] [address] [place] [address] ?OR Transesophageal Echo Report Name: GEORGE MEHTA [...] of this mass after consultation with other direct support professional experts and the decision was made by [...] MD - 06/14/2024 Version: 2 Study ID: [id number] [address] [place], [place] [id number] ORTransesophageal Echo Report Name: GEORGE MEHTA Study [...] of this mass after consultation with other direct support professional experts and thedecision was made by surgeon [...] - 199 mg/dL 06/14/2024 7:12 AM EST [facility] Comment:Supplemental ranges: <140 mg/dL before meals <180 mg/dL all other times of the day. Blood CAPILLARY BLOOD / Unknown 06/14/2024 7:11 AM EST 06/14/2024 7:12 AM EST Haja Byrnes MD POINT OF CARE TEST O NIKA Performing Organization Address [facility] Co de Phone Number [facility] [place] [address] * POC, GLUCOSE (06/14/2024 4:30 AM EST) Glucometer, POC 85 65 - 199 mg/dL 06/14/2024 4:30 AM EST [facility] Comment:Supplemental ranges: <140 mg/dL before meals <180 mg/dL all other times of the day. Blood CAPILLARY BLOOD / Unknown 06/14/2024 4:30 AM EST 06/14/2024 4:30 AM EST Haja Byrnes MD POINT OF CARE TEST Abimael MAHER Performing Organization Address [facility]/ZIP Co de Phone Number [facility] [place] [address] * (ABNORMAL) Heparin (unfractionated) Level (06/14/2024 12:12 AM EST) UF Heparin 1.02([facility]) IU/mL 06/14/2024 12:46 AM EST [facility] Comment: Heparin (anti-Xa) levels [...] City/State/[facility] Co de Phone Number [facility] [place] [address] * (ABNORMAL) CBC (with Diff) (06/14/2024 12:12 AM EST) White Blood Cell 10.51(H) 4.00 - 9.50 x10(3)/mc L 06/14/2024 12:38 AM [facility] Red Blood Cell 4.99 4.58 - 5.54 x10(6)/mc L 06/14/2024 12:38 AM [facility] Hemoglobin 14.9 13.7 - 16.5 g/dL 06/14/2024 12:38 AM [facility] Hematocrit 45.9 40.5 - 48.5 % 06/14/2024 12:38 AM [facility] Mean Cell Volume 92.0 82.9 - 93.1 fL 06/14/2024 12:38 AM [facility] Mean Cell Hemoglobin 29.9 27.5 - 32.1 pg 06/14/2024 12:38 AM [facility] Mean Cell Hemoglobin Concentration 32.5 32.0 - 35.7 g/dL 06/14/2024 12:38 AM [facility] Platelet 162 145 - 357 x10(3)/mc L 06/14/2024 12:38 AM [facility] Mean Platelet Volume 10.1 7.6 - 12.9 fL 06/14/2024 12:38 AM [facility] RDW Standard Deviation 46.9(H) 36.0 - 45.0 fL 06/14/2024 12:38 AM [facility] RDW coefficient of variation 13.8 11.4 - 13.8 % 06/14/2024 12:38 AM [facility] NRBC% auto 0.0 % 06/14/2024 12:38 AM [facility] NRBC Absolute <0.01 <0.01 x10(3)/mc L 06/14/2024 12:38 AM [facility] Neutrophil % 56.7 % 06/14/2024 12:38 AM [facility] Neutrophil Absolute (ANC) - Automated 5.96 1.70 - 6.10 x10(3)/mc L 06/14/2024 12:38 AM [facility] Lymph % 26.8 % 06/14/2024 12:38 AM [facility] Lymph Absolute 2.82 0.90 - 3.20 x10(3)/mc L 06/14/2024 12:38 AM [facility] Monocyte % 11.2 % 06/14/2024 12:38 AM [facility] Monocyte Absolute 1.18(H) 0.30 - 0.90 x10(3)/mc L 06/14/2024 12:38 AM [facility] Eos % 3.9 % 06/14/2024 12:38 AM [facility] Eos Absolute 0.41(H) 0.00 - 0.40 x10(3)/mc L 06/14/2024 12:38 AM [facility] Basophil % 0.8 % 06/14/2024 12:38 AM [facility] Baso Absolute 0.08 0.00 - 0.10 x10(3)/mc L 06/14/2024 12:38 AM EST [facility] Immature Gran % 0.6 % 12:38 AM [facility] Immature Gran Absolute 0.06(H) 0.00 - 0.04 x10(3)/mc L 06/14/2024 12:38 AM EST [facility] Blood VENOUS BLOOD SPECIMEN / Unknown Venipuncture / Unknown 06/14/2024 12:12 AM EST 06/14/2024 12:29 AM EST Shahnaz Scanlon MD HEMATOLOGY ORDERABLE S [facility] [place] [address] * Magnesium (06/14/2024 12:12 AM EST) Magnesium 0.74 0.69 - 1.07 mMol/L 06/14/2024 12:57 AM [facility] Blood VENOUS BLOOD SPECIMEN / Unknown Venipuncture / Unknown 06/14/2024 12:12 AM EST 06/14/2024 12:29 AM EST Shahnaz Scanlon MD CHEMISTRY ORDERABLES [facility] [place] [address] * (ABNORMAL) Basic Metabolic Panel (06/14/2024 12:12 AM EST) Glucose 97 65 - 199 mg/dL 06/14/2024 12:57 AM EST [facility] Comment:Glucose Concentratio n >=200 mg/dL plus symptoms is consistent with Diabetes Mellitus. Blood Urea Nitrogen 25(H) 10 - 20 mg/dL 06/14/2024 12:57 AM EST [facility] Creatinine 1.14 0.80 - 1.50 mg/dL 06/14/2024 12:57 AM [facility] Sodium 135 135 - 145 mMol/L 06/14/2024 12:57 AM [facility] Potassium 4.1 3.5 - 5.0 mMol/L 06/14/2024 12:57 AM [facility] Chloride 100 98 - 107 mMol/L 06/14/2024 12:57 AM [facility] Carbon Dioxide 25 22 - 31 mMol/L 06/14/2024 12:57 AM [facility] Anion Gap 10 5 - 15 mMol/L 06/14/2024 12:57 AM [facility] Calcium 9.5 8.5 - 10.5 mg/dL 06/14/2024 12:57 AM [facility] Est Glomerular Filtration Rate - Male 70 mL/min/1. 73 m?? 06/14/2024 12:57 AM [facility] Comment: This patient's estimated GFR [...] AM EST Shahnaz Scanlon MD CHEMISTRY ORDERABLES [facility] [place] [address] * Scan Doc: Implantable Devices (06/14/2024 12:00 AM EST) Narrative 06/14/2024 12:00 AM EST Ordered by an unspecified provider. Scanning Provider MEDIA MGR SCAN EXT O RDR/RSLT * POC, GLUCOSE (06/13/2024 11:12 PM EST) Glucometer, POC 104 65 - 199 mg/dL 06/13/2024 11:13 PM EST [facility] Comment:Supplemental ranges: <140 mg/dL before meals <180 mg/dL all other times of the day. Blood CAPILLARY BLOOD / Unknown 06/13/2024 11:12 PM EST 06/13/2024 11:13 PM EST Haja Byrnes MD POINT OF CARE TEST O NIKA Performing Organization Address City/[facility]/ZIP Co de Phone Number [facility] [place] [address] * (ABNORMAL) POC, GLUCOSE (06/13/2024 8:03 PM EST) Glucometer, POC 206(H) 65 - 199 mg/dL 06/13/2024 8:03 PM EST [facility] Comment:Supplemental ranges: <140 mg/dL before meals <180 mg/dL all other times of the day. Blood CAPILLARY BLOOD / Unknown 06/13/2024 8:03 PM EST 06/13/2024 8:03 PM EST Haja Byrnes MD POINT OF CARE TEST O NIKA [facility] [place] [address] * Heparin (unfractionated) Level (06/13/2024 4:11 PM EST) UF Heparin 0.76 IU/mL 06/13/2024 4:24 PM EST [facility] Comment: Heparin (anti-Xa) levels [...] MD HEMATOLOGY ORDERABLE S Performing Organization Address City/[facility]/ZIP Co de Phone Number [facility] [place] [address] * ABORH RECHECK (06/13/2024 4:11 PM EST) Pathologist [facility] ABORH Recheck O POSITIVE 06/13/2024 4:50 PM EST [facility] Blood VENOUS BLOOD SPECIMEN / Unknown Venipuncture / Unknown 06/13/2024 4:11 PM EST 06/13/2024 4:19 PM EST Haja Byrnes MD BLOOD BANK LAB ORDER [place] Performing Organization Address City/[facility] Co de Phone Number [facility] [place] [place] [address] * (ABNORMAL) POC, GLUCOSE (06/13/2024 4:09 PM EST) Glucometer, POC 216(H) 65 - 199 mg/dL 06/13/2024 4:10 PM EST [facility] Comment:Supplemental ranges: <140 mg/dL before meals <180 mg/dL all other times of the day. Blood CAPILLARY BLOOD / Unknown 06/13/2024 4:09 PM EST 06/13/2024 4:10 PM EST Haja Byrnes MD POINT OF CARE TEST O RDERABLES [facility] [place] [address] * Type and screen ([facility]/CGP/RAFITA) (06/13/2024 11:53 AM EST) ABORH Type O POSITIVE 06/13/2024 1:16 PM EST [facility] PATIENT HISTORY Not Found 06/13/2024 1:16 PM EST [facility] Expires at [id number] on: 06/16/2024 06/13/2024 1:16 PM EST [facility] ANTIBODY SCREEN AUTOMATED Negative 06/13/2024 1:16 PM EST [facility] T&S only valid at [facility] 06/13/2024 1:16 PM EST [facility] Blood VENOUS BLOOD SPECIMEN / Unknown Venipuncture / Unknown 06/13/2024 11:53 AM EST 06/13/2024 11:56 AM EST Narrative [facility] - 06/13/2024 1:16 PM EST This Type and Screen result is only valid at the [facility] Haja Byrnes MD BLOOD BANK LAB ORDER EUSEBIA Performing Organization Address [facility] Co de Phone Number [facility] [place] [place] [address] * POC, GLUCOSE (06/13/2024 11:50 AM EST) [facility] Glucometer, POC 178 65 - 199 mg/dL 06/13/2024 11:51 AM EST [facility] Comment:Supplemental ranges: <140 mg/dL before meals <180 mg/dL all other times of the day. Blood CAPILLARY BLOOD / Unknown 06/13/2024 11:50 AM EST 06/13/2024 11:51 AM EST Haja Byrnes MD POINT OF CARE TEST O RDERABLES Performing Organization Address City/[facility]/ZIP Co de Phone Number [facility] [place] [address] * XR Chest One View (06/13/2024 10:35 AM EST) WORKSTATION ID [id number] RAD Anatomical Region Laterality Modality Chest N/A [...] who have questions please contact the health caretaker that requested your imaging first. ? Narrative [...] patients who have questions please contactthe health caretaker that requested your imaging first. Haja Byrnes MD IMG DX ORDERABLES * CARDIAC CATHETERIZATION (06/13/2024 9:02 AM EST) Anatomical Region Laterality Modality Other Narrative 06/15/2024 9:07 AM EST ?[facility] ? Cardiac Catheterization/Intervention Report ? Patient Name: George MehtaViry ? Procedure Date: 06/13/2024 ? A #: [id number] ? Primary Physician: Nuha Shen I ? Case #: [id number] ? File Name: [id number] ? Catheterization Order Number: [id number] ? [facility] ? Final Report [place], [place] ? Patient Name: ? George L. Tyson ? ID#: ?[id number] ? : ?1955 ? Procedure Date: ? [...] ?was designated as ASA Class IV. The [facility] clinical frailty scale is 5: [...] procedure was Urgent. The indication for ?the labor specialist visit is ACS greater than 24 hrs [...] angiography, vascular ?ultrasound and IABP insertion in labor specialist. ? Nuha Shen M.D. ? Electronically Signed by: Nuha Shen M.D. ? Report Finalized: 06/15/2024 ??08:59 ? Procedure Note Nuha Shen MD - 06/15/2024 [facility] Cardiac Catheterization/Intervention Report Patient Name: George Mehta Procedure Date: 06/13/2024 A #: [id number] Primary Physician: Nuha Shen I Case #: [id number] File Name: [id number] Catheterization Order Number: [id number] [facility] FinalReport [place], [place] Patient Name: George Mehta ID#:[id number] :1955 Procedure Date: June 13, 2024 Case [...] was designated as ASA Class IV. The [facility] clinical frailty scale is5: Mildly [...] diagnostic procedure was Urgent. The indicationfor the labor specialist visit is ACS greater than 24 hrs [...] site angiography,vascular ultrasound and IABP insertion in labor specialist. Nuha Shen M.D. Electronically Signed by: Nuha Shen M.D. Report Finalized: 06/15/2024 08:59 Nuha Rojo MD CARDIAC CATH ORDERA BLES * Potassium (06/13/2024 7:48 AM EST) Potassium 4.5 3.5 - 5.0 mMol/L 06/13/2024 8:28 AM EST [facility] Blood VENOUS BLOOD SPECIMEN / Unknown Venipuncture / Unknown 06/13/2024 7:48 AM EST 06/13/2024 7:55 AM EST Shahnaz Scanlon MD CHEMISTRY ORDERABLES Performing Organization Address City/[facility]/ZIP Co de Phone Number [facility] [place] [address] * POC, GLUCOSE (06/13/2024 7:41 AM EST) Glucometer, POC 126 65 - 199 mg/dL 06/13/2024 7:41 AM EST [facility] Comment:Supplemental ranges: <140 mg/dL before meals <180 mg/dL all other times of the day. Blood CAPILLARY BLOOD / Unknown 06/13/2024 7:41 AM EST 06/13/2024 7:41 AM EST Ethel Carrillo MD POINT OF CARE TEST O RDERABLES [facility] [place] [address] * POC, GLUCOSE (06/13/2024 3:25 AM EST) Glucometer, POC 99 65 - 199 mg/dL 06/13/2024 3:25 AM EST [facility] Comment:Supplemental ranges: <140 mg/dL before meals <180 mg/dL all other times of the day. Blood CAPILLARY BLOOD / Unknown 06/13/2024 3:25 AM EST 06/13/2024 3:25 AM EST Ethel Carrillo MD POINT OF CARE TEST O RDERABLES Performing Organization Address City/[facility]/ZIP Co de Phone Number [facility] [place] [address] * Heparin (unfractionated) Level (06/13/2024 2:26 AM EST) UF Heparin 0.60 IU/mL 06/13/2024 3:32 AM EST [facility] Comment: Heparin (anti-Xa) levels [...] MD HEMATOLOGY ORDERABLE S Performing Organization Address City/[facility]/ZIP Co de Phone Number [facility] [place] [address] * (ABNORMAL) CBC (with Diff) (06/13/2024 2:26 AM EST) White Blood Cell 9.98(H) 4.00 - 9.50 x10(3)/mc L 06/13/2024 2:41 AM [facility] Red Blood Cell 5.11 4.58 - 5.54 x10(6)/mc L 06/13/2024 2:41 AM [facility] Hemoglobin 15.3 13.7 - 16.5 g/dL 06/13/2024 2:41 AM [facility] Hematocrit 47.1 40.5 - 48.5 % 06/13/2024 2:41 AM [facility] Mean Cell Volume 92.2 82.9 - 93.1 fL 06/13/2024 2:41 AM [facility] Mean Cell Hemoglobin 29.9 27.5 - 32.1 pg 06/13/2024 2:41 AM [facility] Mean Cell Hemoglobin Concentration 32.5 32.0 - 35.7 g/dL 06/13/2024 2:41 AM [facility] Platelet 194 145 - 357 x10(3)/mc L 06/13/2024 2:41 AM [facility] Mean Platelet Volume 9.7 7.6 - 12.9 fL 06/13/2024 2:41 AM [facility] RDW Standard Deviation 47.5(H) 36.0 - 45.0 fL 06/13/2024 2:41 AM [facility] RDW coefficient of variation 13.8 11.4 - 13.8 % 06/13/2024 2:41 AM [facility] NRBC% auto 0.0 % 06/13/2024 2:41 AM [facility] NRBC Absolute <0.01 <0.01 x10(3)/mc L 06/13/2024 2:41 AM [facility] Neutrophil % 48.8 % 06/13/2024 2:41 AM [facility] Neutrophil Absolute (ANC) - Automated 4.87 1.70 - 6.10 x10(3)/mc L 06/13/2024 2:41 AM EST [facility] Lymph % 35.3 % 06/13/2024 2:41 AM EST [facility] Lymph Absolute 3.52(H) 0.90 - 3.20 x10(3)/mc L 06/13/2024 2:41 AM [facility] Monocyte % 10.1 % 06/13/2024 2:41 AM EST [facility] Monocyte Absolute 1.01(H) 0.30 - 0.90 x10(3)/mc L 06/13/2024 2:41 AM EST [facility] Eos % 4.4 % 06/13/2024 2:41 AM [facility] Eos Absolute 0.44(H) 0.00 - 0.40 x10(3)/mc L 06/13/2024 2:41 AM EST [facility] Basophil % 0.9 % 06/13/2024 2:41 AM [facility] Baso Absolute 0.09 0.00 - 0.10 x10(3)/mc L 06/13/2024 2:41 AM EST [facility] Immature Gran % 0.5 % 2:41 AM [facility] Immature Gran Absolute 0.05(H) 0.00 - 0.04 x10(3)/mc L 06/13/2024 2:41 AM EST [facility] Blood VENOUS BLOOD SPECIMEN / Unknown Venipuncture / Unknown 06/13/2024 2:26 AM EST 06/13/2024 2:32 AM EST Shahnaz Scanlon MD HEMATOLOGY ORDERABLE S [facility] [place] [address] * Magnesium (06/13/2024 2:26 AM EST) Magnesium 0.78 0.69 - 1.07 mMol/L 06/13/2024 2:58 AM [facility] Blood VENOUS BLOOD SPECIMEN / Unknown Venipuncture / Unknown 06/13/2024 2:26 AM EST 06/13/2024 2:31 AM EST Shahnaz Scanlon MD CHEMISTRY ORDERABLES [facility] [place] [address] * (ABNORMAL) Basic Metabolic Panel (06/13/2024 2:26 AM EST) Glucose 121 65 - 199 mg/dL 06/13/2024 2:58 AM [facility] Comment:Glucose Concentratio n >=200 mg/dL plus symptoms is consistent with Diabetes Mellitus. Blood Urea Nitrogen 21(H) 10 - 20 mg/dL 06/13/2024 2:58 AM [facility] Creatinine 1.07 0.80 - 1.50 mg/dL 06/13/2024 2:58 AM [facility] Sodium 136 135 - 145 mMol/L 06/13/2024 2:58 AM [facility] Potassium 3.9 3.5 - 5.0 mMol/L 06/13/2024 2:58 AM [facility] Chloride 99 98 - 107 mMol/L 06/13/2024 2:58 AM [facility] Carbon Dioxide 27 22 - 31 mMol/L 06/13/2024 2:58 AM [facility] Anion Gap 10 5 - 15 mMol/L 06/13/2024 2:58 AM [facility] Calcium 9.7 8.5 - 10.5 mg/dL 06/13/2024 2:58 AM [facility] Est Glomerular Filtration Rate - Male 76 mL/min/1. 73 m?? 06/13/2024 2:58 AM [facility] Comment: This patient's estimated GFR [...] Scanlon MD CHEMISTRY ORDERABLES Performing Organization Address [facility] Co de Phone Number [facility] [place] [address] * POC, GLUCOSE (06/12/2024 11:53 PM EST) Glucometer, POC 141 65 - 199 mg/dL 06/12/2024 11:54 PM EST [facility] Comment:Supplemental ranges: <140 mg/dL before meals <180 mg/dL all other times of the day. Blood CAPILLARY BLOOD / Unknown 06/12/2024 11:53 PM EST 06/12/2024 11:54 PM EST Ethel Carrillo MD POINT OF CARE TEST O RDERABLES Performing Organization Address [facility] Co de Phone Number [facility] [place] [address] * POC, GLUCOSE (06/12/2024 7:32 PM EST) Glucometer, POC 158 65 - 199 mg/dL 06/12/2024 7:32 PM EST [facility] Comment:Supplemental ranges: <140 mg/dL before meals <180 mg/dL all other times of the day. Blood CAPILLARY BLOOD / Unknown 06/12/2024 7:32 PM EST 06/12/2024 7:32 PM EST Ethel Carrillo MD POINT OF CARE TEST O NIKA Performing Organization Address [facility] Co de Phone Number [facility] [place] [address] * POC, GLUCOSE (06/12/2024 3:41 PM EST) Glucometer, POC 113 65 - 199 mg/dL 06/12/2024 3:41 PM EST [facility] Comment:Supplemental ranges: <140 mg/dL before meals <180 mg/dL all other times of the day. Blood CAPILLARY BLOOD / Unknown 06/12/2024 3:41 PM EST 06/12/2024 3:41 PM EST Ethel Carrillo MD POINT OF CARE TEST Abimael MAHER Performing Organization Address [facility] Co de Phone Number [facility] [place] [address] * Potassium (06/12/2024 2:19 PM EST) Potassium 4.5 3.5 - 5.0 mMol/L 06/12/2024 2:45 PM EST [facility] Blood VENOUS BLOOD SPECIMEN / Unknown Venipuncture / Unknown 06/12/2024 2:19 PM EST 06/12/2024 2:23 PM EST Shahnaz Scanlon MD CHEMISTRY ORDERABLES Performing Organization Address [facility] Co de Phone Number [facility] [place] [address] * (ABNORMAL) POC, GLUCOSE (06/12/2024 11:21 AM EST) Glucometer, POC 207(H) 65 - 199 mg/dL 06/12/2024 11:21 AM EST [facility] Comment:Supplemental ranges: <140 mg/dL before meals <180 mg/dL all other times of the day. Blood CAPILLARY BLOOD / Unknown 06/12/2024 11:21 AM EST 06/12/2024 11:22 AM EST Ethel Carrillo MD POINT OF CARE TEST O NIKA Performing Organization Address City/[facility] Co de Phone Number [facility] [place] [address] * POC, GLUCOSE (06/12/2024 8:00 AM EST) Glucometer, POC 169 65 - 199 mg/dL 06/12/2024 8:01 AM EST [facility] Comment:Supplemental ranges: <140 mg/dL before meals <180 mg/dL all other times of the day. Blood CAPILLARY BLOOD / Unknown 06/12/2024 8:00 AM EST 06/12/2024 8:01 AM EST Ethel Carrillo MD POINT OF CARE TEST O NIKA Performing Organization Address [facility] de Phone Number [facility] [place] [address] * POC, GLUCOSE (06/12/2024 4:25 AM EST) Glucometer, POC 132 65 - 199 mg/dL 06/12/2024 4:26 AM EST [facility] Comment:Supplemental ranges: <140 mg/dL before meals <180 mg/dL all other times of the day. Blood CAPILLARY BLOOD / Unknown 06/12/2024 4:25 AM EST 06/12/2024 4:26 AM EST Ethel Carrillo MD POINT OF CARE TEST O NIKA Performing Organization Address City/[facility] Co de Phone Number [facility] [place] [address] * Heparin (unfractionated) Level (06/12/2024 3:03 AM EST) UF Heparin 0.55 IU/mL 06/12/2024 3:44 AM EST [facility] Comment: Heparin (anti-Xa) levels [...] City/State/[facility] Co de Phone Number [facility] [place] [address] * (ABNORMAL) CBC (with Diff) (06/12/2024 3:03 AM EST) White Blood Cell 9.69(H) 4.00 - 9.50 x10(3)/mc L 06/12/2024 3:36 AM EST [facility] Red Blood Cell 5.05 4.58 - 5.54 x10(6)/mc L 06/12/2024 3:36 AM EST [facility] Hemoglobin 15.2 13.7 - 16.5 g/dL 06/12/2024 3:36 AM EST [facility] Hematocrit 46.6 40.5 - 48.5 % 06/12/2024 3:36 AM [facility] Mean Cell Volume 92.3 82.9 - 93.1 fL 06/12/2024 3:36 AM [facility] Mean Cell Hemoglobin 30.1 27.5 - 32.1 pg 06/12/2024 3:36 AM [facility] Mean Cell Hemoglobin Concentration 32.6 32.0 - 35.7 g/dL 06/12/2024 3:36 AM [facility] Platelet 194 145 - 357 x10(3)/mc L 06/12/2024 3:36 AM [facility] Mean Platelet Volume 10.1 7.6 - 12.9 fL 06/12/2024 3:36 AM [facility] RDW Standard Deviation 47.7(H) 36.0 - 45.0 fL 06/12/2024 3:36 AM [facility] RDW coefficient of variation 14.0(H) 11.4 - 13.8 % 06/12/2024 3:36 AM [facility] NRBC% auto 0.0 % 06/12/2024 3:36 AM [facility] NRBC Absolute <0.01 <0.01 x10(3)/mc L 06/12/2024 3:36 AM [facility] Neutrophil % 49.9 % 06/12/2024 3:36 AM [facility] Neutrophil Absolute (ANC) - Automated 4.82 1.70 - 6.10 x10(3)/mc L 06/12/2024 3:36 AM [facility] Lymph % 33.5 % 06/12/2024 3:36 AM [facility] Lymph Absolute 3.25(H) 0.90 - 3.20 x10(3)/mc L 06/12/2024 3:36 AM [facility] Monocyte % 11.1 % 06/12/2024 3:36 AM [facility] Monocyte Absolute 1.08(H) 0.30 - 0.90 x10(3)/mc L 06/12/2024 3:36 AM [facility] Eos % 4.1 % 06/12/2024 3:36 AM [facility] Eos Absolute 0.40 0.00 - 0.40 x10(3)/mc L 06/12/2024 3:36 AM [facility] Basophil % 0.8 % 06/12/2024 3:36 AM [facility] Baso Absolute 0.08 0.00 - 0.10 x10(3)/mc L 06/12/2024 3:36 AM [facility] Immature Gran % 0.6 % 3:36 AM [facility] Immature Gran Absolute 0.06(H) 0.00 - 0.04 x10(3)/mc L 06/12/2024 3:36 AM [facility] Blood VENOUS BLOOD SPECIMEN / Unknown Venipuncture / Unknown 06/12/2024 3:03 AM EST 06/12/2024 3:30 AM EST Shahnaz Scanlon MD HEMATOLOGY ORDERABLE S Performing Organization Address City/[facility]/ZIP Co de Phone Number [facility] [place] [address] * Magnesium (06/12/2024 3:03 AM EST) Magnesium 0.79 0.69 - 1.07 mMol/L 06/12/2024 4:01 AM [facility] Blood VENOUS BLOOD SPECIMEN / Unknown Venipuncture / Unknown 06/12/2024 3:03 AM EST 06/12/2024 3:30 AM EST Shahnaz Scanlon MD CHEMISTRY ORDERABLES [facility] [place] [address] * (ABNORMAL) Basic Metabolic Panel (06/12/2024 3:03 AM EST) Glucose 132 65 - 199 mg/dL 06/12/2024 4:01 AM [facility] Comment:Glucose Concentratio n >=200 mg/dL plus symptoms is consistent with Diabetes Mellitus. Blood Urea Nitrogen 23(H) 10 - 20 mg/dL 06/12/2024 4:01 AM [facility] Creatinine 1.15 0.80 - 1.50 mg/dL 06/12/2024 4:01 AM [facility] Sodium 138 135 - 145 mMol/L 06/12/2024 4:01 AM [facility] Potassium 3.8 3.5 - 5.0 mMol/L 06/12/2024 4:01 AM [facility] Chloride 98 98 - 107 mMol/L 06/12/2024 4:01 AM [facility] Carbon Dioxide 29 22 - 31 mMol/L 06/12/2024 4:01 AM [facility] Anion Gap 11 5 - 15 mMol/L 06/12/2024 4:01 AM [facility] Calcium 9.5 8.5 - 10.5 mg/dL 06/12/2024 4:01 AM [facility] Est Glomerular Filtration Rate - Male 70 mL/min/1. 73 m?? 06/12/2024 4:01 AM [facility] Comment: This patient's estimated GFR [...] AM EST Shahnaz Scanlon MD CHEMISTRY ORDERABLES [facility] [place] [address] * POC, GLUCOSE (06/11/2024 11:56 PM EST) Glucometer, POC 135 65 - 199 mg/dL 06/11/2024 11:56 PM EST [facility] Comment:Supplemental ranges: <140 mg/dL before meals <180 mg/dL all other times of the day. Blood CAPILLARY BLOOD / Unknown 06/11/2024 11:56 PM EST 06/11/2024 11:56 PM EST Ethel Carrillo MD POINT OF CARE TEST O NIKA Performing Organization Address City/[facility]/ZIP Co de Phone Number [facility] [place] [address] * (ABNORMAL) POC, GLUCOSE (06/11/2024 8:25 PM EST) Glucometer, POC 210(H) 65 - 199 mg/dL 06/11/2024 8:26 PM EST [facility] Comment:Supplemental ranges: <140 mg/dL before meals <180 mg/dL all other times of the day. Blood CAPILLARY BLOOD / Unknown 06/11/2024 8:25 PM EST 06/11/2024 8:26 PM EST Ethel Carrillo MD POINT OF CARE TEST O NIKA Performing Organization Address [facility]/ZIP Co de Phone Number [facility] [place] [address] * POC, GLUCOSE (06/11/2024 4:24 PM EST) Glucometer, POC 81 65 - 199 mg/dL 06/11/2024 4:24 PM EST [facility] Comment:Supplemental ranges: <140 mg/dL before meals <180 mg/dL all other times of the day. Blood CAPILLARY BLOOD / Unknown 06/11/2024 4:24 PM EST 06/11/2024 4:25 PM EST Ethel Carrillo MD POINT OF CARE TEST O NIKA [facility] [place] [address] * (ABNORMAL) POC, GLUCOSE (06/11/2024 11:08 AM EST) Glucometer, POC 233(H) 65 - 199 mg/dL 06/11/2024 11:08 AM EST [facility] Comment:Supplemental ranges: <140 mg/dL before meals <180 mg/dL all other times of the day. Blood CAPILLARY BLOOD / Unknown 06/11/2024 11:08 AM EST 06/11/2024 11:08 AM EST Ethel Carrillo MD POINT OF CARE TEST Abimael MAHER Performing Organization Address City/[facility]/ZIP Co de Phone Number [facility] [place] [address] * POC, GLUCOSE (06/11/2024 7:48 AM EST) Glucometer, POC 184 65 - 199 mg/dL 06/11/2024 7:49 AM EST [facility] Comment:Supplemental ranges: <140 mg/dL before meals <180 mg/dL all other times of the day. Blood CAPILLARY BLOOD / Unknown 06/11/2024 7:48 AM EST 06/11/2024 7:49 AM EST Melida Valdes MD POINT OF CARE TEST Abimael MAHER Performing Organization Address City/[facility]/ZIP Co de Phone Number [facility] [place] [address] * Heparin (unfractionated) Level (06/11/2024 5:31 AM EST) UF Heparin 0.55 IU/mL 06/11/2024 6:10 AM EST [facility] Comment: Heparin (anti-Xa) levels [...] MD HEMATOLOGY ORDERABLE S Performing Organization Address [facility] Co de Phone Number [facility] [place] [address] * POC, GLUCOSE (06/11/2024 3:57 AM EST) Glucometer, POC 132 65 - 199 mg/dL 06/11/2024 3:58 AM EST [facility] Comment:Supplemental ranges: <140 mg/dL before meals <180 mg/dL all other times of the day. Blood CAPILLARY BLOOD / Unknown 06/11/2024 3:57 AM EST 06/11/2024 3:58 AM EST Melida Valdes MD POINT OF CARE TEST O RDERABLES Performing Organization Address [facility] Co de Phone Number [facility] [place] [address] * (ABNORMAL) CBC (with Diff) (06/11/2024 2:13 AM EST) White Blood Cell 9.91(H) 4.00 - 9.50 x10(3)/mc L 06/11/2024 2:26 AM EST [facility] Red Blood Cell 5.13 4.58 - 5.54 x10(6)/mc L 06/11/2024 2:26 AM EST [facility] Hemoglobin 15.3 13.7 - 16.5 g/dL 06/11/2024 2:26 AM [facility] Hematocrit 47.5 40.5 - 48.5 % 06/11/2024 2:26 AM [facility] Mean Cell Volume 92.6 82.9 - 93.1 fL 06/11/2024 2:26 AM [facility] Mean Cell Hemoglobin 29.8 27.5 - 32.1 pg 06/11/2024 2:26 AM [facility] Mean Cell Hemoglobin Concentration 32.2 32.0 - 35.7 g/dL 06/11/2024 2:26 AM [facility] Platelet 184 145 - 357 x10(3)/mc L 06/11/2024 2:26 AM [facility] Mean Platelet Volume 9.7 7.6 - 12.9 fL 06/11/2024 2:26 AM [facility] RDW Standard Deviation 48.0(H) 36.0 - 45.0 fL 06/11/2024 2:26 AM [facility] RDW coefficient of variation 14.0(H) 11.4 - 13.8 % 06/11/2024 2:26 AM [facility] NRBC% auto 0.0 % 06/11/2024 2:26 AM [facility] NRBC Absolute <0.01 <0.01 x10(3)/mc L 06/11/2024 2:26 AM [facility] Neutrophil % 50.3 % 06/11/2024 2:26 AM [facility] Neutrophil Absolute (ANC) - Automated 4.98 1.70 - 6.10 x10(3)/mc L 06/11/2024 2:26 AM [facility] Lymph % 33.5 % 06/11/2024 2:26 AM [facility] Lymph Absolute 3.32(H) 0.90 - 3.20 x10(3)/mc L 06/11/2024 2:26 AM [facility] Monocyte % 10.9 % 06/11/2024 2:26 AM [facility] Monocyte Absolute 1.08(H) 0.30 - 0.90 x10(3)/mc L 06/11/2024 2:26 AM [facility] Eos % 4.1 % 06/11/2024 2:26 AM [facility] Eos Absolute 0.41(H) 0.00 - 0.40 x10(3)/mc L 06/11/2024 2:26 AM [facility] Basophil % 0.7 % 06/11/2024 2:26 AM [facility] Baso Absolute 0.07 0.00 - 0.10 x10(3)/mc L 06/11/2024 2:26 AM [facility] Immature Gran % 0.5 % 2:26 AM [facility] Immature Gran Absolute 0.05(H) 0.00 - 0.04 x10(3)/mc L 06/11/2024 2:26 AM [facility] Blood VENOUS BLOOD SPECIMEN / Unknown Venipuncture / Unknown 06/11/2024 2:13 AM EST 06/11/2024 2:19 AM EST Shahnaz Scanlon MD HEMATOLOGY ORDERABLE S Performing Organization Address City/State/[facility] Co de Phone Number [facility] [place] [address] * Magnesium (06/11/2024 2:13 AM EST) Magnesium 0.83 0.69 - 1.07 mMol/L 06/11/2024 2:51 AM [facility] Blood VENOUS BLOOD SPECIMEN / Unknown Venipuncture / Unknown 06/11/2024 2:13 AM EST 06/11/2024 2:19 AM EST Shahnaz Scanlon MD CHEMISTRY ORDERABLES [facility] [place] [address] * (ABNORMAL) Basic Metabolic Panel (06/11/2024 2:13 AM EST) Glucose 148 65 - 199 mg/dL 06/11/2024 2:51 AM EST [facility] Comment:Glucose Concentratio n >=200 mg/dL plus symptoms is consistent with Diabetes Mellitus. Blood Urea Nitrogen 24(H) 10 - 20 mg/dL 06/11/2024 2:51 AM EST [facility] Creatinine 1.06 0.80 - 1.50 mg/dL 06/11/2024 2:51 AM [facility] Sodium 134(L) 135 - 145 mMol/L 06/11/2024 2:51 AM EST [facility] Potassium 4.1 3.5 - 5.0 mMol/L 06/11/2024 2:51 AM EST [facility] Chloride 96(L) 98 - 107 mMol/L 06/11/2024 2:51 AM [facility] Carbon Dioxide 28 22 - 31 mMol/L 06/11/2024 2:51 AM [facility] Anion Gap 10 5 - 15 mMol/L 06/11/2024 2:51 AM EST [facility] Calcium 9.4 8.5 - 10.5 mg/dL 06/11/2024 2:51 AM EST [facility] Est Glomerular Filtration Rate - Male 77 mL/min/1. 73 m?? 06/11/2024 2:51 AM EST [facility] Comment: This patient's estimated [...] Scanlon MD CHEMISTRY ORDERABLES Performing Organization Address City/[facility]/ZIP Co de Phone Number [facility] [place] [address] * POC, GLUCOSE (06/11/2024 12:50 AM EST) Glucometer, POC 144 65 - 199 mg/dL 06/11/2024 12:51 AM EST [facility] Comment:Supplemental ranges: <140 mg/dL before meals <180 mg/dL all other times of the day. Blood CAPILLARY BLOOD / Unknown 06/11/2024 12:50 AM EST 06/11/2024 12:51 AM EST Melida Valdes MD POINT OF CARE TEST O NIKA Performing Organization Address [facility] Co de Phone Number [facility] [place] [address] * (ABNORMAL) POC, GLUCOSE (06/10/2024 7:22 PM EST) Glucometer, POC 236(H) 65 - 199 mg/dL 06/10/2024 7:22 PM EST [facility] Comment:Supplemental ranges: <140 mg/dL before meals <180 mg/dL all other times of the day. Blood CAPILLARY BLOOD / Unknown 06/10/2024 7:22 PM EST 06/10/2024 7:22 PM EST Melida Valdes MD POINT OF CARE TEST O RDERAPIETER Performing Organization Address City/[facility]/ZIP Co de Phone Number [facility] [place] [address] * (ABNORMAL) Blood Gas, Venous (06/10/2024 5:42 PM EST) [facility] pH, Venous 7.34 7.32 - 7.42 06/10/2024 [...] - 2.2 mmol/L 06/10/2024 5:50 PM EST [facility] Blood Gas Source Venous 06/10/20 5:50 PM EST [facility] Blood VENOUS BLOOD SPECIMEN / Unknown Blood Gas Venous / Unknown 06/10/2024 5:42 PM EST 06/10/2024 5:47 PM EST Melida Valdes MD CHEMISTRY ORDERABLES Performing Organization Address [facility] Co de Phone Number [facility] [place] [address] * POC, GLUCOSE (06/10/2024 5:35 PM EST) Glucometer, POC 123 65 - 199 mg/dL 06/10/2024 5:35 PM EST [facility] Comment:Supplemental ranges: <140 mg/dL before meals <180 mg/dL all other times of the day. Blood CAPILLARY BLOOD / Unknown 06/10/2024 5:35 PM EST 06/10/2024 5:35 PM EST Melida Valdes MD POINT OF CARE TEST O RDERABLES Performing Organization Address [facility] Co de Phone Number [facility] [place] [address] * (ABNORMAL) POC, GLUCOSE (06/10/2024 11:25 AM EST) Glucometer, POC 216(H) 65 - 199 mg/dL 06/10/2024 11:25 AM EST [facility] Comment:Supplemental ranges: <140 mg/dL before meals <180 mg/dL all other times of the day. Blood CAPILLARY BLOOD / Unknown 06/10/2024 11:25 AM EST 06/10/2024 11:25 AM EST Melida Valdes MD POINT OF CARE TEST O RDERABLES Performing Organization Address [facility] Co de Phone Number [facility] [place] [address] * (ABNORMAL) POC, GLUCOSE (06/10/2024 7:46 AM EST) Glucometer, POC 206(H) 65 - 199 mg/dL 06/10/2024 7:46 AM EST [facility] Comment:Supplemental ranges: <140 mg/dL before meals <180 mg/dL all other times of the day. Blood CAPILLARY BLOOD / Unknown 06/10/2024 7:46 AM EST 06/10/2024 7:46 AM EST Melida Valdes MD POINT OF CARE TEST O RDERABLES Performing Organization Address [facility] Co de Phone Number [facility] [place] [address] * POC, GLUCOSE (06/10/2024 4:23 AM EST) Glucometer, POC 154 65 - 199 mg/dL 06/10/2024 4:24 AM EST [facility] Comment:Supplemental ranges: <140 mg/dL before meals <180 mg/dL all other times of the day. Blood CAPILLARY BLOOD / Unknown 06/10/2024 4:23 AM EST 06/10/2024 4:24 AM EST Melida Valdes MD POINT OF CARE TEST O RDERAPIETER Performing Organization Address [facility] Co de Phone Number [facility] [place] [address] * (ABNORMAL) CBC (with Diff) (06/10/2024 1:55 AM EST) White Blood Cell 9.00 4.00 - 9.50 x10(3)/mc L 06/10/2024 2:14 AM EST [facility] Red Blood Cell 5.03 4.58 - 5.54 x10(6)/mc L 06/10/2024 2:14 AM [facility] Hemoglobin 14.9 13.7 - 16.5 g/dL 06/10/2024 2:14 AM [facility] Hematocrit 46.4 40.5 - 48.5 % 06/10/2024 2:14 AM [facility] Mean Cell Volume 92.2 82.9 - 93.1 fL 06/10/2024 2:14 AM [facility] Mean Cell Hemoglobin 29.6 27.5 - 32.1 pg 06/10/2024 2:14 AM [facility] Mean Cell Hemoglobin Concentration 32.1 32.0 - 35.7 g/dL 06/10/2024 2:14 AM [facility] Platelet 191 145 - 357 x10(3)/mc L 06/10/2024 2:14 AM [facility] Mean Platelet Volume 9.7 7.6 - 12.9 fL 06/10/2024 2:14 AM [facility] RDW Standard Deviation 47.4(H) 36.0 - 45.0 fL 06/10/2024 2:14 AM [facility] RDW coefficient of variation 14.1(H) 11.4 - 13.8 % 06/10/2024 2:14 AM [facility] NRBC% auto 0.0 % 06/10/2024 2:14 AM [facility] NRBC Absolute <0.01 <0.01 x10(3)/mc L 06/10/2024 2:14 AM [facility] Neutrophil % 48.7 % 06/10/2024 2:14 AM [facility] Neutrophil Absolute (ANC) - Automated 4.39 1.70 - 6.10 x10(3)/mc L 06/10/2024 2:14 AM [facility] Lymph % 34.9 % 06/10/2024 2:14 AM [facility] Lymph Absolute 3.14 0.90 - 3.20 x10(3)/mc L 06/10/2024 2:14 AM [facility] Monocyte % 11.2 % 06/10/2024 2:14 AM [facility] Monocyte Absolute 1.01(H) 0.30 - 0.90 x10(3)/mc L 06/10/2024 2:14 AM [facility] Eos % 3.6 % 06/10/2024 2:14 AM [facility] Eos Absolute 0.32 0.00 - 0.40 x10(3)/mc L 06/10/2024 2:14 AM [facility] Basophil % 1.0 % 06/10/2024 2:14 AM [facility] Baso Absolute 0.09 0.00 - 0.10 x10(3)/mc L 06/10/2024 2:14 AM [facility] Immature Gran % 0.6 % 2:14 AM [facility] Immature Gran Absolute 0.05(H) 0.00 - 0.04 x10(3)/mc L 06/10/2024 2:14 AM [facility] Blood VENOUS BLOOD SPECIMEN / Unknown Venipuncture / Unknown 06/10/2024 1:55 AM EST 06/10/2024 2:05 AM EST Shahnaz Scanlon MD HEMATOLOGY ORDERABLE S Performing Organization Address City/[facility] Co de Phone Number [facility] [place] [address] * Magnesium (06/10/2024 1:55 AM EST) Magnesium 0.83 0.69 - 1.07 mMol/L 06/10/2024 2:37 AM [facility] Blood VENOUS BLOOD SPECIMEN / Unknown Venipuncture / Unknown 06/10/2024 1:55 AM EST 06/10/2024 2:05 AM EST Shahnaz Scanlon MD CHEMISTRY ORDERABLES [facility] [place] [address] * (ABNORMAL) Basic Metabolic Panel (06/10/2024 1:55 AM EST) Glucose 140 65 - 199 mg/dL 06/10/2024 2:37 AM [facility] Comment:Glucose Concentratio n >=200 mg/dL plus symptoms is consistent with Diabetes Mellitus. Blood Urea Nitrogen 24(H) 10 - 20 mg/dL 06/10/2024 2:37 AM [facility] Creatinine 1.06 0.80 - 1.50 mg/dL 06/10/2024 2:37 AM [facility] Sodium 138 135 - 145 mMol/L 06/10/2024 2:37 AM [facility] Potassium 4.1 3.5 - 5.0 mMol/L 06/10/2024 2:37 AM [facility] Chloride 100 98 - 107 mMol/L 06/10/2024 2:37 AM [facility] Carbon Dioxide 25 22 - 31 mMol/L 06/10/2024 2:37 AM [facility] Anion Gap 13 5 - 15 mMol/L 06/10/2024 2:37 AM [facility] Calcium 9.5 8.5 - 10.5 mg/dL 06/10/2024 2:37 AM [facility] Est Glomerular Filtration Rate - Male 77 mL/min/1. 73 m?? 06/10/2024 2:37 AM [facility] Comment: This patient's estimated GFR [...] Scanlon MD CHEMISTRY ORDERABLES Performing Organization Address [facility] Co de Phone Number [facility] [place] [address] * Heparin (unfractionated) Level (06/10/2024 1:54 AM EST) UF Heparin 0.56 IU/mL 06/10/2024 2:41 AM EST [facility] Comment: Heparin (anti-Xa) levels [...] MD HEMATOLOGY ORDERABLE S Performing Organization Address City/[facility]/ZIP Co de Phone Number [facility] [place] [address] * POC, GLUCOSE (06/10/2024 12:05 AM EST) Glucometer, POC 125 65 - 199 mg/dL 06/10/2024 12:05 AM EST [facility] Comment:Supplemental ranges: <140 mg/dL before meals <180 mg/dL all other times of the day. Blood CAPILLARY BLOOD / Unknown 06/10/2024 12:05 AM EST 06/10/2024 12:05 AM EST Melida Valdes MD POINT OF CARE TEST O NIKA [facility] [place] [address] * POC, GLUCOSE (06/09/2024 8:36 PM EST) Glucometer, POC 197 65 - 199 mg/dL 06/09/2024 8:36 PM EST [facility] Comment:Supplemental ranges: <140 mg/dL before meals <180 mg/dL all other times of the day. Blood CAPILLARY BLOOD / Unknown 06/09/2024 8:36 PM EST 06/09/2024 8:36 PM EST Melida Valdes MD POINT OF CARE TEST O NIKA Performing Organization Address City/[facility]/ZIP Co de Phone Number [facility] [place] [address] * POC, GLUCOSE (06/09/2024 5:27 PM EST) Glucometer, POC 174 65 - 199 mg/dL 06/09/2024 5:28 PM EST [facility] Comment:Supplemental ranges: <140 mg/dL before meals <180 mg/dL all other times of the day. Blood CAPILLARY BLOOD / Unknown 06/09/2024 5:27 PM EST 06/09/2024 5:28 PM EST Melida Valdes MD POINT OF CARE TEST O NIKA [facility] [place] [address] * (ABNORMAL) POC, GLUCOSE (06/09/2024 11:52 AM EST) Glucometer, POC 211(H) 65 - 199 mg/dL 06/09/2024 11:52 AM EST [facility] Comment:Supplemental ranges: <140 mg/dL before meals <180 mg/dL all other times of the day. Blood CAPILLARY BLOOD / Unknown 06/09/2024 11:52 AM EST 06/09/2024 11:52 AM EST Melida Valdes MD POINT OF CARE TEST O RDERAPIETER Performing Organization Address City/[facility]/ZIP Co de Phone Number [facility] [place] [address] * Potassium (06/09/2024 8:25 AM EST) Potassium 4.6 3.5 - 5.0 mMol/L 06/09/2024 10:09 AM EST [facility] Blood VENOUS BLOOD SPECIMEN / Unknown Venipuncture / Unknown 06/09/2024 8:25 AM EST 06/09/2024 8:42 AM EST Shahnaz Scanlon MD CHEMISTRY ORDERABLES Performing Organization Address [facility] Co de Phone Number [facility] [place] [address] * (ABNORMAL) POC, GLUCOSE (06/09/2024 8:10 AM EST) Glucometer, POC 209(H) 65 - 199 mg/dL 06/09/2024 8:10 AM EST [facility] Comment:Supplemental ranges: <140 mg/dL before meals <180 mg/dL all other times of the day. Blood CAPILLARY BLOOD / Unknown 06/09/2024 8:10 AM EST 06/09/2024 8:11 AM EST Melida Valdes MD POINT OF CARE TEST O RDERABLES Performing Organization Address City/[facility]/ZIP Co de Phone Number [facility] [place] [address] * POC, GLUCOSE (06/09/2024 4:40 AM EST) Glucometer, POC 131 65 - 199 mg/dL 06/09/2024 4:40 AM EST [facility] Comment:Supplemental ranges: <140 mg/dL before meals <180 mg/dL all other times of the day. Blood CAPILLARY BLOOD / Unknown 06/09/2024 4:40 AM EST 06/09/2024 4:41 AM EST Melida Valdes MD POINT OF CARE TEST O RDERABLES Performing Organization Address [facility]/ZIP Co de Phone Number [facility] [place] [address] * Heparin (unfractionated) Level (06/09/2024 2:12 AM EST) UF Heparin 0.55 IU/mL 06/09/2024 2:33 AM EST [facility] Comment: Heparin (anti-Xa) levels [...] EST Shahnaz Scanlon MD HEMATOLOGY ORDERABLE S [facility] [place] [address] * (ABNORMAL) CBC (with Diff) (06/09/2024 2:12 AM EST) White Blood Cell 9.80(H) 4.00 - 9.50 x10(3)/mc L 06/09/2024 2:44 AM [facility] Red Blood Cell 5.18 4.58 - 5.54 x10(6)/mc L 06/09/2024 2:44 AM [facility] Hemoglobin 15.5 13.7 - 16.5 g/dL 06/09/2024 2:44 AM [facility] Hematocrit 47.4 40.5 - 48.5 % 06/09/2024 2:44 AM [facility] Mean Cell Volume 91.5 82.9 - 93.1 fL 06/09/2024 2:44 AM [facility] Mean Cell Hemoglobin 29.9 27.5 - 32.1 pg 06/09/2024 2:44 AM [facility] Mean Cell Hemoglobin Concentration 32.7 32.0 - 35.7 g/dL 06/09/2024 2:44 AM [facility] Platelet 205 145 - 357 x10(3)/mc L 06/09/2024 2:44 AM [facility] Mean Platelet Volume 9.7 7.6 - 12.9 fL 06/09/2024 2:44 AM [facility] RDW Standard Deviation 47.7(H) 36.0 - 45.0 fL 06/09/2024 2:44 AM [facility] RDW coefficient of variation 14.1(H) 11.4 - 13.8 % 06/09/2024 2:44 AM [facility] NRBC% auto 0.0 % 06/09/2024 2:44 AM [facility] NRBC Absolute <0.01 <0.01 x10(3)/mc L 06/09/2024 2:44 AM [facility] Neutrophil % 53.0 % 06/09/2024 2:44 AM [facility] Neutrophil Absolute (ANC) - Automated 5.19 1.70 - 6.10 x10(3)/mc L 06/09/2024 2:44 AM [facility] Lymph % 31.6 % 06/09/2024 2:44 AM [facility] Lymph Absolute 3.10 0.90 - 3.20 x10(3)/mc L 06/09/2024 2:44 AM [facility] Monocyte % 11.0 % 06/09/2024 2:44 AM [facility] Monocyte Absolute 1.08(H) 0.30 - 0.90 x10(3)/mc L 06/09/2024 2:44 AM [facility] Eos % 2.9 % 06/09/2024 2:44 AM [facility] Eos Absolute 0.28 0.00 - 0.40 x10(3)/mc L 06/09/2024 2:44 AM [facility] Basophil % 0.9 % 06/09/2024 2:44 AM [facility] Baso Absolute 0.09 0.00 - 0.10 x10(3)/mc L 06/09/2024 2:44 AM [facility] Immature Gran % 0.6 % 2:44 AM [facility] Immature Gran Absolute 0.06(H) 0.00 - 0.04 x10(3)/mc L 06/09/2024 2:44 AM [facility] Blood VENOUS BLOOD SPECIMEN / Unknown Venipuncture / Unknown 06/09/2024 2:12 AM EST 06/09/2024 2:21 AM EST Shahnaz Scanlon MD HEMATOLOGY ORDERABLE S [facility] [place] [address] * Magnesium (06/09/2024 2:12 AM EST) Magnesium 0.83 0.69 - 1.07 mMol/L 06/09/2024 2:52 AM EST [facility] Blood VENOUS BLOOD SPECIMEN / Unknown Venipuncture / Unknown 06/09/2024 2:12 AM EST 06/09/2024 2:22 AM EST Shahnaz Scanlon MD CHEMISTRY ORDERABLES [facility] [place] [address] * (ABNORMAL) Basic Metabolic Panel (06/09/2024 2:12 AM EST) Glucose 147 65 - 199 mg/dL 06/09/2024 2:52 AM [facility] Comment:Glucose Concentratio n >=200 mg/dL plus symptoms is consistent with Diabetes Mellitus. Blood Urea Nitrogen 24(H) 10 - 20 mg/dL 06/09/2024 2:52 AM [facility] Creatinine 1.11 0.80 - 1.50 mg/dL 06/09/2024 2:52 AM [facility] Sodium 136 135 - 145 mMol/L 06/09/2024 2:52 AM [facility] Potassium 3.9 3.5 - 5.0 mMol/L 06/09/2024 2:52 AM [facility] Chloride 98 98 - 107 mMol/L 06/09/2024 2:52 AM [facility] Carbon Dioxide 27 22 - 31 mMol/L 06/09/2024 2:52 AM [facility] Anion Gap 11 5 - 15 mMol/L 06/09/2024 2:52 AM [facility] Calcium 9.7 8.5 - 10.5 mg/dL 06/09/2024 2:52 AM [facility] Est Glomerular Filtration Rate - Male 73 mL/min/1. 73 m?? 06/09/2024 2:52 AM [facility] Comment: This patient's estimated GFR [...] Scanlon MD CHEMISTRY ORDERABLES Performing Organization Address [facility] Co de Phone Number [facility] [place] [address] * POC, GLUCOSE (06/09/2024 12:34 AM EST) Glucometer, POC 186 65 - 199 mg/dL 06/09/2024 12:34 AM EST [facility] Comment:Supplemental ranges: <140 mg/dL before meals <180 mg/dL all other times of the day. Blood CAPILLARY BLOOD / Unknown 06/09/2024 12:34 AM EST 06/09/2024 12:34 AM EST Melida aVldes MD POINT OF CARE TEST O RDERABLES Performing Organization Address City/[facility]/ZIP Co de Phone Number [facility] [place] [address] * POC, GLUCOSE (06/08/2024 8:27 PM EST) Glucometer, POC 176 65 - 199 mg/dL 06/08/2024 8:28 PM EST [facility] Comment:Supplemental ranges: <140 mg/dL before meals <180 mg/dL all other times of the day. Blood CAPILLARY BLOOD / Unknown 06/08/2024 8:27 PM EST 06/08/2024 8:28 PM EST Melida Valdes MD POINT OF CARE TEST O NIKA Performing Organization Address [facility] de Phone Number [facility] [place] [address] * POC, GLUCOSE (06/08/2024 4:16 PM EST) Glucometer, POC 159 65 - 199 mg/dL 06/08/2024 4:16 PM EST [facility] Comment:Supplemental ranges: <140 mg/dL before meals <180 mg/dL all other times of the day. Blood CAPILLARY BLOOD / Unknown 06/08/2024 4:16 PM EST 06/08/2024 4:16 PM EST Melida Valdes MD POINT OF CARE TEST O NIKA Performing Organization Address [facility] Phone Number [facility] [place] [address] * (ABNORMAL) POC, GLUCOSE (06/08/2024 12:35 PM EST) Glucometer, POC 226(H) 65 - 199 mg/dL 06/08/2024 12:35 PM EST [facility] Comment:Supplemental ranges: <140 mg/dL before meals <180 mg/dL all other times of the day. Blood CAPILLARY BLOOD / Unknown 06/08/2024 12:35 PM EST 06/08/2024 12:35 PM EST Melida Valdes MD POINT OF CARE TEST O NIKA Performing Organization Address [facility] Co de Phone Number [facility] [place] [address] * POC, GLUCOSE (06/08/2024 8:10 AM EST) Glucometer, POC 190 65 - 199 mg/dL 06/08/2024 8:14 AM EST [facility] Comment:Supplemental ranges: <140 mg/dL before meals <180 mg/dL all other times of the day. Blood CAPILLARY BLOOD / Unknown 06/08/2024 8:10 AM EST 06/08/2024 8:14 AM EST Melida Valdes MD POINT OF CARE TEST O NIKA Performing Organization Address [facility] de Phone Number [facility] [place] [address] * POC, GLUCOSE (06/08/2024 4:09 AM EST) Glucometer, POC 151 65 - 199 mg/dL 06/08/2024 4:10 AM EST [facility] Comment:Supplemental ranges: <140 mg/dL before meals <180 mg/dL all other times of the day. Blood CAPILLARY BLOOD / Unknown 06/08/2024 4:09 AM EST 06/08/2024 4:10 AM EST Melida Valdes MD POINT OF CARE TEST O NIKA Performing Organization Address [facility] de Phone Number [facility] [place] [address] * Heparin (unfractionated) Level (06/08/2024 3:21 AM EST) UF Heparin 0.46 IU/mL 06/08/2024 3:41 AM EST [facility] Comment: Heparin (anti-Xa) levels [...] EST Shahnaz Scanlon MD HEMATOLOGY ORDERABLE S [facility] [place] [address] * (ABNORMAL) CBC (with Diff) (06/08/2024 3:21 AM EST) White Blood Cell 9.92(H) 4.00 - 9.50 x10(3)/mc L 06/08/2024 3:34 AM [facility] Red Blood Cell 5.09 4.58 - 5.54 x10(6)/mc L 06/08/2024 3:34 AM [facility] Hemoglobin 15.1 13.7 - 16.5 g/dL 06/08/2024 3:34 AM [facility] Hematocrit 46.7 40.5 - 48.5 % 06/08/2024 3:34 AM [facility] Mean Cell Volume 91.7 82.9 - 93.1 fL 06/08/2024 3:34 AM [facility] Mean Cell Hemoglobin 29.7 27.5 - 32.1 pg 06/08/2024 3:34 AM [facility] Mean Cell Hemoglobin Concentration 32.3 32.0 - 35.7 g/dL 06/08/2024 3:34 AM [facility] Platelet 203 145 - 357 x10(3)/mc L 06/08/2024 3:34 AM [facility] Mean Platelet Volume 9.4 7.6 - 12.9 fL 06/08/2024 3:34 AM [facility] RDW Standard Deviation 46.9(H) 36.0 - 45.0 fL 06/08/2024 3:34 AM [facility] RDW coefficient of variation 13.8 11.4 - 13.8 % 06/08/2024 3:34 AM [facility] NRBC% auto 0.0 % 06/08/2024 3:34 AM [facility] NRBC Absolute <0.01 <0.01 x10(3)/mc L 06/08/2024 3:34 AM [facility] Neutrophil % 56.8 % 06/08/2024 3:34 AM [facility] Neutrophil Absolute (ANC) - Automated 5.63 1.70 - 6.10 x10(3)/mc L 06/08/2024 3:34 AM [facility] Lymph % 27.3 % 06/08/2024 3:34 AM [facility] Lymph Absolute 2.71 0.90 - 3.20 x10(3)/mc L 06/08/2024 3:34 AM [facility] Monocyte % 11.2 % 06/08/2024 3:34 AM [facility] Monocyte Absolute 1.11(H) 0.30 - 0.90 x10(3)/mc L 06/08/2024 3:34 AM [facility] Eos % 3.4 % 06/08/2024 3:34 AM [facility] Eos Absolute 0.34 0.00 - 0.40 x10(3)/mc L 06/08/2024 3:34 AM [facility] Basophil % 0.8 % 06/08/2024 3:34 AM [facility] Baso Absolute 0.08 0.00 - 0.10 x10(3)/mc L 06/08/2024 3:34 AM [facility] Immature Gran % 0.5 % 3:34 AM [facility] Immature Gran Absolute 0.05(H) 0.00 - 0.04 x10(3)/mc L 06/08/2024 3:34 AM EST [facility] Blood VENOUS BLOOD SPECIMEN / Unknown Venipuncture / Unknown 06/08/2024 3:21 AM EST 06/08/2024 3:27 AM EST Shahnaz Scanlon MD HEMATOLOGY ORDERABLE S Performing Organization Address City/[facility]/ZIP Co de Phone Number [facility] [place] [address] * Magnesium (06/08/2024 3:21 AM EST) Magnesium 0.84 0.69 - 1.07 mMol/L 06/08/2024 3:59 AM [facility] Blood VENOUS BLOOD SPECIMEN / Unknown Venipuncture / Unknown 06/08/2024 3:21 AM EST 06/08/2024 3:27 AM EST Shahnaz Scanlon MD CHEMISTRY ORDERABLES Performing Organization Address City/[facility]/ZIP Co de Phone Number [facility] [place] [address] * (ABNORMAL) Basic Metabolic Panel (06/08/2024 3:21 AM EST) Glucose 173 65 - 199 mg/dL 06/08/2024 3:59 AM [facility] Comment:Glucose Concentratio n >=200 mg/dL plus symptoms is consistent with Diabetes Mellitus. Blood Urea Nitrogen 25(H) 10 - 20 mg/dL 06/08/2024 3:59 AM [facility] Creatinine 1.09 0.80 - 1.50 mg/dL 06/08/2024 3:59 AM [facility] Sodium 135 135 - 145 mMol/L 06/08/2024 3:59 AM [facility] Potassium 4.2 3.5 - 5.0 mMol/L 06/08/2024 3:59 AM [facility] Chloride 98 98 - 107 mMol/L 06/08/2024 3:59 AM [facility] Carbon Dioxide 25 22 - 31 mMol/L 06/08/2024 3:59 AM EST [facility] Anion Gap 12 5 - 15 mMol/L 06/08/2024 3:59 AM [facility] Calcium 9.4 8.5 - 10.5 mg/dL 06/08/2024 3:59 AM EST [facility] Est Glomerular Filtration Rate - Male 74 mL/min/1. 73 m?? 06/08/2024 3:59 AM [facility] Comment: This patient's estimated GFR [...] AM EST Shahnaz Scanlon MD CHEMISTRY ORDERABLES [facility] [place] [address] * POC, GLUCOSE (06/07/2024 11:57 PM EST) [facility] Signature Glucometer, POC 188 65 - 199 mg/dL 06/07/2024 11:57 PM EST [facility] Comment:Supplemental ranges: <140 mg/dL before meals <180 mg/dL all other times of the day. Blood CAPILLARY BLOOD / Unknown 06/07/2024 11:57 PM EST 06/07/2024 11:58 PM EST Melida Valdes MD POINT OF CARE TEST O RDERABLES [facility] [place] [address] * POC, GLUCOSE (06/07/2024 8:05 PM EST) Glucometer, POC 118 65 - 199 mg/dL 06/07/2024 8:06 PM EST [facility] Comment:Supplemental ranges: <140 mg/dL before meals <180 mg/dL all other times of the day. Blood CAPILLARY BLOOD / Unknown 06/07/2024 8:05 PM EST 06/07/2024 8:06 PM EST Melida Valdes MD POINT OF CARE TEST O RDBECKIE Performing Organization Address [facility] Co de Phone Number [facility] [place] [address] * Potassium (06/07/2024 5:22 PM EST) Potassium 4.6 3.5 - 5.0 mMol/L 06/07/2024 5:59 PM EST [facility] Blood VENOUS BLOOD SPECIMEN / Unknown Venipuncture / Unknown 06/07/2024 5:22 PM EST 06/07/2024 5:26 PM EST Shahnaz Scanlon MD CHEMISTRY ORDERABLES Performing Organization Address City/[facility] Co de Phone Number [facility] [place] [address] * POC, GLUCOSE (06/07/2024 4:31 PM EST) Glucometer, POC 174 65 - 199 mg/dL 06/07/2024 4:34 PM EST [facility] Comment:Supplemental ranges: <140 mg/dL before meals <180 mg/dL all other times of the day. Blood CAPILLARY BLOOD / Unknown 06/07/2024 4:31 PM EST 06/07/2024 4:34 PM EST Melida Valdes MD POINT OF CARE TEST O RDERABLES [facility] [place] [address] * MRI Cardiac Morphology Function wwo Contrast (06/07/2024 1:10 PM EST) WORKSTATION ID [id number] [facility] Anatomical Region Laterality Modality Magnetic Resonan ce [...] - Mildly dilated left ventricle size with ylnkmkze-eo-cqysyabc decreased LV systolic function. ??LV ejection fraction [...] who have questions please contact the health caretaker that requested your imaging first. ? Narrative [...] VENTRICLE: Mildly dilated left ventricle size with yymnmxmy-mu-qawxviyj decreased LV systolic function. ??LV ejection fraction [...] VENTRICLE: Mildly dilated left ventricle size with wsoaxump-qz-txyzjllq decreasedLV systolic function. LV ejection fraction is [...] - Mildly dilated left ventricle size with yitqsjlj-aa-xgengezi decreasedLV systolic function. LV ejection fraction is [...] patients who have questions please contactthe health caretaker that requested your imaging first. Delroy Fofana MD [place] [facility] ORDERABLES * (ABNORMAL) POC, GLUCOSE (06/07/2024 11:05 AM EST) [facility] Signature Glucometer, POC 221(H) 65 - 199 mg/dL 06/07/2024 11:06 AM EST [facility] Comment:Supplemental ranges: <140 mg/dL before meals <180 mg/dL all other times of the day. Blood CAPILLARY BLOOD / Unknown 06/07/2024 11:05 AM EST 06/07/2024 11:06 AM EST Melida Valdes MD POINT OF CARE TEST O RDERAPIETER Performing Organization Address City/[facility] Co de Phone Number [facility] [place] [address] * (ABNORMAL) POC, GLUCOSE (06/07/2024 11:03 AM EST) Glucometer, POC 250(H) 65 - 199 mg/dL 06/07/2024 11:04 AM EST [facility] Comment:Supplemental ranges: <140 mg/dL before meals <180 mg/dL all other times of the day. Blood CAPILLARY BLOOD / Unknown 06/07/2024 11:03 AM EST 06/07/2024 11:04 AM EST Melida Valdes MD POINT OF CARE TEST O RALPHERAPIETER Performing Organization Address [facility] Co de Phone Number [facility] [place] [address] * Potassium (06/07/2024 9:44 AM EST) Potassium 4.7 3.5 - 5.0 mMol/L 06/07/2024 10:23 AM EST [facility] Blood VENOUS BLOOD SPECIMEN / Unknown Venipuncture / Unknown 06/07/2024 9:44 AM EST 06/07/2024 9:57 AM EST Shahnaz Scanlon MD CHEMISTRY ORDERABLES Performing Organization Address City/[facility]/ZIP Co de Phone Number [facility] [place] [address] * POC, GLUCOSE (06/07/2024 7:45 AM EST) Glucometer, POC 175 65 - 199 mg/dL 06/07/2024 7:45 AM EST [facility] Comment:Supplemental ranges: <140 mg/dL before meals <180 mg/dL all other times of the day. Blood CAPILLARY BLOOD / Unknown 06/07/2024 7:45 AM EST 06/07/2024 7:46 AM EST Melida Valdes MD POINT OF CARE TEST O RDERABLES [facility] [place] [address] * XR Chest PA & Lateral (Generic) (06/07/2024 7:03 AM EST) WORKSTATION ID [id number] RAD Anatomical Region Laterality Modality Chest N/A [...] who have questions please contact the health caretaker that requested your imaging first. ? Narrative [...] patients who have questions please contactthe health caretaker that requested your imaging first. Shahnaz Scanlon MD IMG DX ORDERABLES * POC, GLUCOSE (06/07/2024 4:25 AM EST) [facility] Glucometer, POC 127 65 - 199 mg/dL 06/07/2024 4:26 AM EST [facility] Comment:Supplemental ranges: <140 mg/dL before meals <180 mg/dL all other times of the day. Blood CAPILLARY BLOOD / Unknown 06/07/2024 4:25 AM EST 06/07/2024 4:26 AM EST Melida Valdes MD POINT OF CARE TEST O RDERABLES [facility] [place] [address] * Heparin (unfractionated) Level (06/07/2024 2:41 AM EST) UF Heparin 0.45 IU/mL 06/07/2024 3:03 AM EST [facility] Comment: Heparin (anti-Xa) levels [...] City/State/[facility] Co de Phone Number [facility] [place] [address] * (ABNORMAL) CBC (with Diff) (06/07/2024 2:41 AM EST) White Blood Cell 10.06(H) 4.00 - 9.50 x10(3)/mc L 06/07/2024 2:58 AM EST [facility] Red Blood Cell 5.02 4.58 - 5.54 x10(6)/mc L 06/07/2024 2:58 AM EST [facility] Hemoglobin 14.8 13.7 - 16.5 g/dL 06/07/2024 2:58 AM EST [facility] Hematocrit 46.2 40.5 - 48.5 % 06/07/2024 2:58 AM [facility] Mean Cell Volume 92.0 82.9 - 93.1 fL 06/07/2024 2:58 AM EST [facility] Mean Cell Hemoglobin 29.5 27.5 - 32.1 pg 06/07/2024 2:58 AM [facility] Mean Cell Hemoglobin Concentration 32.0 32.0 - 35.7 g/dL 06/07/2024 2:58 AM [facility] Platelet 202 145 - 357 x10(3)/mc L 06/07/2024 2:58 AM [facility] Mean Platelet Volume 9.6 7.6 - 12.9 fL 06/07/2024 2:58 AM [facility] RDW Standard Deviation 46.3(H) 36.0 - 45.0 fL 06/07/2024 2:58 AM [facility] RDW coefficient of variation 13.8 11.4 - 13.8 % 06/07/2024 2:58 AM [facility] NRBC% auto 0.0 % 06/07/2024 2:58 AM [facility] NRBC Absolute <0.01 <0.01 x10(3)/mc L 06/07/2024 2:58 AM [facility] Neutrophil % 55.9 % 06/07/2024 2:58 AM [facility] Neutrophil Absolute (ANC) - Automated 5.62 1.70 - 6.10 x10(3)/mc L 06/07/2024 2:58 AM [facility] Lymph % 28.3 % 06/07/2024 2:58 AM [facility] Lymph Absolute 2.85 0.90 - 3.20 x10(3)/mc L 06/07/2024 2:58 AM [facility] Monocyte % 10.8 % 06/07/2024 2:58 AM [facility] Monocyte Absolute 1.09(H) 0.30 - 0.90 x10(3)/mc L 06/07/2024 2:58 AM [facility] Eos % 3.6 % 06/07/2024 2:58 AM [facility] Eos Absolute 0.36 0.00 - 0.40 x10(3)/mc L 06/07/2024 2:58 AM EST [facility] Basophil % 0.8 % 06/07/2024 2:58 AM EST [facility] Baso Absolute 0.08 0.00 - 0.10 x10(3)/mc L 06/07/2024 2:58 AM EST [facility] Immature Gran % 0.6 % 2:58 AM EST [facility] Immature Gran Absolute 0.06(H) 0.00 - 0.04 x10(3)/mc L 06/07/2024 2:58 AM EST [facility] Blood VENOUS BLOOD SPECIMEN / Unknown Venipuncture / Unknown 06/07/2024 2:41 AM EST 06/07/2024 2:52 AM EST Shahnaz Scanlon MD HEMATOLOGY ORDERABLE S Performing Organization Address City/[facility]/ZIP Co de Phone Number [facility] [place] [address] * Magnesium (06/07/2024 2:41 AM EST) Magnesium 0.92 0.69 - 1.07 mMol/L 06/07/2024 3:25 AM [facility] Blood VENOUS BLOOD SPECIMEN / Unknown Venipuncture / Unknown 06/07/2024 2:41 AM EST 06/07/2024 2:51 AM EST Shahnaz Scanlon MD CHEMISTRY ORDERABLES [facility] [place] [address] * (ABNORMAL) Basic Metabolic Panel (06/07/2024 2:41 AM EST) Glucose 140 65 - 199 mg/dL 06/07/2024 3:25 AM [facility] Comment:Glucose Concentratio n >=200 mg/dL plus symptoms is consistent with Diabetes Mellitus. Blood Urea Nitrogen 26(H) 10 - 20 mg/dL 06/07/2024 3:25 AM [facility] Creatinine 1.06 0.80 - 1.50 mg/dL 06/07/2024 3:25 AM EST [facility] Sodium 136 135 - 145 mMol/L 06/07/2024 3:25 AM [facility] Potassium 3.8 3.5 - 5.0 mMol/L 06/07/2024 3:25 AM [facility] Chloride 98 98 - 107 mMol/L 06/07/2024 3:25 AM [facility] Carbon Dioxide 28 22 - 31 mMol/L 06/07/2024 3:25 AM [facility] Anion Gap 10 5 - 15 mMol/L 06/07/2024 3:25 AM [facility] Calcium 9.4 8.5 - 10.5 mg/dL 06/07/2024 3:25 AM [facility] Est Glomerular Filtration Rate - Male 77 mL/min/1. 73 m?? 06/07/2024 3:25 AM [facility] Comment: This patient's estimated GFR [...] AM EST Shahnaz Scanlon MD CHEMISTRY ORDERABLES [facility] [place] [address] * POC, GLUCOSE (06/07/2024 12:08 AM EST) Glucometer, POC 182 65 - 199 mg/dL 06/07/2024 12:09 AM EST [facility] Comment:Supplemental ranges: <140 mg/dL before meals <180 mg/dL all other times of the day. Blood CAPILLARY BLOOD / Unknown 06/07/2024 12:08 AM EST 06/07/2024 12:09 AM EST Melida Valdes MD POINT OF CARE TEST O NIKA [facility] [place] [address] * POC, GLUCOSE (06/06/2024 8:18 PM EST) Glucometer, POC 143 65 - 199 mg/dL 06/06/2024 8:19 PM EST [facility] Comment:Supplemental ranges: <140 mg/dL before meals <180 mg/dL all other times of the day. Blood CAPILLARY BLOOD / Unknown 06/06/2024 8:18 PM EST 06/06/2024 8:19 PM EST Melida Valdes MD POINT OF CARE TEST O NIKA Performing Organization Address City/[facility]/ZIP Co de Phone Number [facility] [place] [address] * POC, GLUCOSE (06/06/2024 3:39 PM EST) Glucometer, POC 147 65 - 199 mg/dL 06/06/2024 3:40 PM EST [facility] Comment:Supplemental ranges: <140 mg/dL before meals <180 mg/dL all other times of the day. Blood CAPILLARY BLOOD / Unknown 06/06/2024 3:39 PM EST 06/06/2024 3:40 PM EST Melida Valdes MD POINT OF CARE TEST O NIKA [facility] [place] [address] * Potassium (06/06/2024 2:37 PM EST) Potassium 4.3 3.5 - 5.0 mMol/L 06/06/2024 3:01 PM EST [facility] Blood VENOUS BLOOD SPECIMEN / Unknown Venipuncture / Unknown 06/06/2024 2:37 PM EST 06/06/2024 2:42 PM EST Shahnaz Scanlon MD CHEMISTRY ORDERABLES Performing Organization Address [facility]/ZIP Co de Phone Number [facility] [place] [address] * (ABNORMAL) POC, GLUCOSE (06/06/2024 1:39 PM EST) Glucometer, POC 317(H) 65 - 199 mg/dL 06/06/2024 1:40 PM EST [facility] Comment:Supplemental ranges: <140 mg/dL before meals <180 mg/dL all other times of the day. Blood CAPILLARY BLOOD / Unknown 06/06/2024 1:39 PM EST 06/06/2024 1:41 PM EST Melida Valdes MD POINT OF CARE TEST O NIKA Performing Organization Address [facility]/ZIP Co de Phone Number [facility] [place] [address] * (ABNORMAL) POC, GLUCOSE (06/06/2024 11:34 AM EST) Glucometer, POC 264(H) 65 - 199 mg/dL 06/06/2024 11:35 AM EST [facility] Comment:Supplemental ranges: <140 mg/dL before meals <180 mg/dL all other times of the day. Blood CAPILLARY BLOOD / Unknown 06/06/2024 11:34 AM EST 06/06/2024 11:35 AM EST Melida Valdes MD POINT OF CARE TEST O RDERABLES Performing Organization Address City/[facility]/ZIP Co de Phone Number [facility] [place] [address] * Potassium (06/06/2024 10:17 AM EST) Potassium 4.3 3.5 - 5.0 mMol/L 06/06/2024 10:46 AM EST [facility] Blood VENOUS BLOOD SPECIMEN / Unknown Venipuncture / Unknown 06/06/2024 10:17 AM EST 06/06/2024 10:22 AM EST Shahnaz Scanlon MD CHEMISTRY ORDERABLES Performing Organization Address [facility] Co de Phone Number [facility] [place] [address] * POC, GLUCOSE (06/06/2024 7:57 AM EST) Glucometer, POC 195 65 - 199 mg/dL 06/06/2024 8:03 AM EST [facility] Comment:Supplemental ranges: <140 mg/dL before meals <180 mg/dL all other times of the day. Blood CAPILLARY BLOOD / Unknown 06/06/2024 7:57 AM EST 06/06/2024 8:03 AM EST Melida Valdes MD POINT OF CARE TEST O RDERABLES Performing Organization Address [facility]/ZIP Co de Phone Number [facility] [place] [address] * POC, GLUCOSE (06/06/2024 6:53 AM EST) Glucometer, POC 187 65 - 199 mg/dL 06/06/2024 6:53 AM EST [facility] Comment:Supplemental ranges: <140 mg/dL before meals <180 mg/dL all other times of the day. Blood CAPILLARY BLOOD / Unknown 06/06/2024 6:53 AM EST 06/06/2024 6:54 AM EST Melida Valdes MD POINT OF CARE TEST O RDERABLES Performing Organization Address City/[facility]/ZIP Co de Phone Number [facility] [place] [address] * (ABNORMAL) Hemoglobin A1c (06/06/2024 3:33 AM EST) Hemoglobin A1c 7.1(H) 4.3 - 5.6 % 06/06/2024 1:01 PM EST [facility] Comment: Per ADA guidelines, [...] red blood cell turnover may not be bank representative of glycemic control. Reference Interval: 4.3 - 5.6% 5.7 - 6.4%: Consistent with prediabetes >=6.5%: Consistent with diagnosis of diabetes mellitus Estimated Average Glucose 157 mg/dL 06/06/2024 1:01 PM EST [facility] Blood VENOUS BLOOD SPECIMEN / Unknown Venipuncture / Unknown 06/06/2024 3:33 AM EST 06/06/2024 3:48 AM EST Alejandra Baumann APRN CHEMISTRY ORDERAB LES Performing Organization Address City/[facility]/ZIP Co de Phone Number [facility] [place] [address] * Heparin (unfractionated) Level (06/06/2024 3:33 AM EST) UF Heparin 0.36 IU/mL 06/06/2024 3:59 AM EST [facility] Comment: Heparin (anti-Xa) levels [...] EST Shahnaz Scanlon MD HEMATOLOGY ORDERABLE S [facility] [place] [address] * (ABNORMAL) CBC (with Diff) (06/06/2024 3:33 AM EST) White Blood Cell 9.81(H) 4.00 - 9.50 x10(3)/mc L 06/06/2024 3:54 AM EST [facility] Red Blood Cell 4.91 4.58 - 5.54 x10(6)/mc L 06/06/2024 3:54 AM EST [facility] Hemoglobin 14.6 13.7 - 16.5 g/dL 06/06/2024 3:54 AM EST [facility] Hematocrit 45.4 40.5 - 48.5 % 06/06/2024 3:54 AM EST [facility] Mean Cell Volume 92.5 82.9 - 93.1 fL 06/06/2024 3:54 AM [facility] Mean Cell Hemoglobin 29.7 27.5 - 32.1 pg 06/06/2024 3:54 AM [facility] Mean Cell Hemoglobin Concentration 32.2 32.0 - 35.7 g/dL 06/06/2024 3:54 AM EST [facility] Platelet 199 145 - 357 x10(3)/mc L 06/06/2024 3:54 AM [facility] Mean Platelet Volume 9.5 7.6 - 12.9 fL 06/06/2024 3:54 AM [facility] RDW Standard Deviation 47.2(H) 36.0 - 45.0 fL 06/06/2024 3:54 AM [facility] RDW coefficient of variation 13.9(H) 11.4 - 13.8 % 06/06/2024 3:54 AM [facility] NRBC% auto 0.0 % 06/06/2024 3:54 AM [facility] NRBC Absolute <0.01 <0.01 x10(3)/mc L 06/06/2024 3:54 AM [facility] Neutrophil % 56.8 % 06/06/2024 3:54 AM [facility] Neutrophil Absolute (ANC) - Automated 5.57 1.70 - 6.10 x10(3)/mc L 06/06/2024 3:54 AM [facility] Lymph % 27.6 % 06/06/2024 3:54 AM [facility] Lymph Absolute 2.71 0.90 - 3.20 x10(3)/mc L 06/06/2024 3:54 AM [facility] Monocyte % 11.1 % 06/06/2024 3:54 AM [facility] Monocyte Absolute 1.09(H) 0.30 - 0.90 x10(3)/mc L 06/06/2024 3:54 AM [facility] Eos % 3.0 % 06/06/2024 3:54 AM [facility] Eos Absolute 0.29 0.00 - 0.40 x10(3)/mc L 06/06/2024 3:54 AM [facility] Basophil % 0.9 % 06/06/2024 3:54 AM [facility] Baso Absolute 0.09 0.00 - 0.10 x10(3)/mc L 06/06/2024 3:54 AM EST [facility] Immature Gran % 0.6 % 3:54 AM [facility] Immature Gran Absolute 0.06(H) 0.00 - 0.04 x10(3)/mc L 06/06/2024 3:54 AM [facility] Blood VENOUS BLOOD SPECIMEN / Unknown Venipuncture / Unknown 06/06/2024 3:33 AM EST 06/06/2024 3:48 AM EST Shahnaz Scanlon MD HEMATOLOGY ORDERABLE S Performing Organization Address City/[facility]/ZIP Co de Phone Number [facility] [place] [address] * Magnesium (06/06/2024 3:33 AM EST) Magnesium 0.92 0.69 - 1.07 mMol/L 06/06/2024 4:17 AM [facility] Blood VENOUS BLOOD SPECIMEN / Unknown Venipuncture / Unknown 06/06/2024 3:33 AM EST 06/06/2024 3:47 AM EST Shahnaz Scanlon MD CHEMISTRY ORDERABLES Performing Organization Address City/[facility]/ZIP Co de Phone Number [facility] [place] [address] * (ABNORMAL) Basic Metabolic Panel (06/06/2024 3:33 AM EST) Glucose 190 65 - 199 mg/dL 06/06/2024 4:17 AM [facility] Comment:Glucose Concentratio n >=200 mg/dL plus symptoms is consistent with Diabetes Mellitus. Blood Urea Nitrogen 27(H) 10 - 20 mg/dL 06/06/2024 4:17 AM [facility] Creatinine 1.12 0.80 - 1.50 mg/dL 06/06/2024 4:17 AM [facility] Sodium 136 135 - 145 mMol/L 06/06/2024 4:17 AM EST [facility] Potassium 4.0 3.5 - 5.0 mMol/L 06/06/2024 4:17 AM [facility] Chloride 97(L) 98 - 107 mMol/L 06/06/2024 4:17 AM [facility] Carbon Dioxide 26 22 - 31 mMol/L 06/06/2024 4:17 AM [facility] Anion Gap 13 5 - 15 mMol/L 06/06/2024 4:17 AM [facility] Calcium 9.1 8.5 - 10.5 mg/dL 06/06/2024 4:17 AM [facility] Est Glomerular Filtration Rate - Male 72 mL/min/1. 73 m?? 06/06/2024 4:17 AM EST [facility] Comment: This patient's estimated [...] AM EST Shahnaz Scanlon MD CHEMISTRY ORDERABLES [facility] [place] [address] * (ABNORMAL) POC, GLUCOSE (06/05/2024 10:31 PM EDT) Glucometer, POC 238(H) 65 - 199 mg/dL 06/05/2024 10:31 PM EDT [facility] Comment:Supplemental ranges: <140 mg/dL before meals <180 mg/dL all other times of the day. Blood CAPILLARY BLOOD / Unknown 06/05/2024 10:31 PM EDT 06/05/2024 10:31 PM EDT Melida Valdes MD POINT OF CARE TEST O RDERAPIETER Performing Organization Address City/[facility] Co de Phone Number [facility] [place] [address] * (ABNORMAL) POC, GLUCOSE (06/05/2024 4:22 PM EDT) Glucometer, POC 205(H) 65 - 199 mg/dL 06/05/2024 4:22 PM EDT [facility] Comment:Supplemental ranges: <140 mg/dL before meals <180 mg/dL all other times of the day. Blood CAPILLARY BLOOD / Unknown 06/05/2024 4:22 PM EDT 06/05/2024 4:23 PM EDT Melida Valdes MD POINT OF CARE TEST O NIKA Performing Organization Address [facility] Co de Phone Number [facility] [place] [address] * (ABNORMAL) POC, GLUCOSE (06/05/2024 11:34 AM EDT) Glucometer, POC 211(H) 65 - 199 mg/dL 06/05/2024 11:34 AM EDT [facility] Comment:Supplemental ranges: <140 mg/dL before meals <180 mg/dL all other times of the day. Blood CAPILLARY BLOOD / Unknown 06/05/2024 11:34 AM EDT 06/05/2024 11:34 AM EDT Melida Valdes MD POINT OF CARE TEST O NIKA Performing Organization Address City/[facility] Co de Phone Number [facility] [place] [address] * Potassium (06/05/2024 9:04 AM EDT) [place] [facility] Potassium 4.3 3.5 - 5.0 mMol/L 06/05/2024 9:50 AM EDT [facility] Blood VENOUS BLOOD SPECIMEN / Unknown Venipuncture / Unknown 06/05/2024 9:04 AM EDT 06/05/2024 9:21 AM EDT Shahnaz Scanlon MD CHEMISTRY ORDERABLES [facility] [place] [address] * POC, GLUCOSE (06/05/2024 7:27 AM EDT) [facility] Glucometer, POC 166 65 - 199 mg/dL 06/05/2024 7:27 AM EDT [facility] Comment:Supplemental ranges: <140 mg/dL before meals <180 mg/dL all other times of the day. Blood CAPILLARY BLOOD / Unknown 06/05/2024 7:27 AM EDT 06/05/2024 7:27 AM EDT Meldia Valdes MD POINT OF CARE TEST O RDERABLES Performing Organization Address [facility]/ZIP Co de Phone Number [facility] [place] [address] * Heparin (unfractionated) Level (06/05/2024 3:44 AM EDT) [facility] UF Heparin 0.44 IU/mL 06/05/2024 4:07 AM EDT [facility] Comment: Heparin (anti-Xa) levels [...] EDT Shahnaz Scanlon MD HEMATOLOGY ORDERABLE S [facility] [place] [address] * (ABNORMAL) CBC (with Diff) (06/05/2024 3:44 AM EDT) White Blood Cell 10.83(H) 4.00 - 9.50 x10(3)/mc L 06/05/2024 3:56 AM EDT [facility] Red Blood Cell 5.07 4.58 - 5.54 x10(6)/mc L 06/05/2024 3:56 AM EDT [facility] Hemoglobin 15.3 13.7 - 16.5 g/dL 06/05/2024 3:56 AM [facility] Hematocrit 46.8 40.5 - 48.5 % 06/05/2024 3:56 AM EDT [facility] Mean Cell Volume 92.3 82.9 - 93.1 fL 06/05[facility]24 [facility] Mean Cell Hemoglobin 30.2 27.5 - 32.1 pg 06/05/2024 3:56 AM EDT [facility] Mean Cell Hemoglobin Concentration 32.7 32.0 - 35.7 g/dL 06/05/2024 3:56 AM [facility] Platelet 219 145 - 357 x10(3)/mc L 06/05/2024 3:56 AM EDT [facility] Mean Platelet Volume 9.4 7.6 - 12.9 fL 06/05/2024 3:56 AM [facility] RDW Standard Deviation 46.7(H) 36.0 - 45.0 fL 06/05/2024 3:56 AM [facility] RDW coefficient of variation 13.9(H) 11.4 - 13.8 % 06/05/2024 3:56 AM [facility] NRBC% auto 0.0 % 06/05/2024 3:56 AM [facility] NRBC Absolute <0.01 <0.01 x10(3)/mc L 06/05/2024 3:56 AM [facility] Neutrophil % 61.5 % 06/05/2024 3:56 AM [facility] Neutrophil Absolute (ANC) - Automated 6.65(H) 1.70 - 6.10 x10(3)/mc L 06/05/2024 3:56 AM [facility] Lymph % 24.0 % 06/05/2024 3:56 AM [facility] Lymph Absolute 2.60 0.90 - 3.20 x10(3)/mc L 06/05/2024 3:56 AM [facility] Monocyte % 10.9 % 06/05/2024 3:56 AM [facility] Monocyte Absolute 1.18(H) 0.30 - 0.90 x10(3)/mc L 06/05/2024 3:56 AM [facility] Eos % 2.2 % 06/05/2024 3:56 AM [facility] Eos Absolute 0.24 0.00 - 0.40 x10(3)/mc L 06/05/2024 3:56 AM [facility] Basophil % 0.8 % 06/05/2024 3:56 AM [facility] Baso Absolute 0.09 0.00 - 0.10 x10(3)/mc L 06/05/2024 3:56 AM EDT [facility] Immature Gran % 0.6 % 3:56 AM EDT [facility] Immature Gran Absolute 0.07(H) 0.00 - 0.04 x10(3)/mc L 06/05/2024 3:56 AM EDT [facility] Blood VENOUS BLOOD SPECIMEN / Unknown Venipuncture / Unknown 06/05/2024 3:44 AM EDT 06/05/2024 3:50 AM EDT Shahnaz Scanlon MD HEMATOLOGY ORDERABLE S Performing Organization Address City/[facility]/ZIP Co de Phone Number [facility] [place] [address] * Magnesium (06/05/2024 3:44 AM EDT) Magnesium 0.92 0.69 - 1.07 mMol/L 06/05/2024 4:20 AM EDT [facility] Blood VENOUS BLOOD SPECIMEN / Unknown Venipuncture / Unknown 06/05/2024 3:44 AM EDT 06/05/2024 3:50 AM EDT Shahnaz Scanlon MD CHEMISTRY ORDERABLES Performing Organization Address City/[facility]/ZIP Co de Phone Number [facility] [place] [address] * (ABNORMAL) Basic Metabolic Panel (06/05/2024 3:44 AM EDT) Glucose 155 65 - 199 mg/dL 06/05/2024 4:20 AM EDT [facility] Comment:Glucose Concentratio n >=200 mg/dL plus symptoms is consistent with Diabetes Mellitus. Blood Urea Nitrogen 25(H) 10 - 20 mg/dL 06/05/2024 4:20 AM EDT [facility] Creatinine 1.16 0.80 - 1.50 mg/dL 06/05/2024 4:20 AM EDT [facility] Sodium 136 135 - 145 mMol/L 06/05/2024 4:20 AM [facility] Potassium 3.9 3.5 - 5.0 mMol/L 06/05/2024 4:20 AM [facility] Chloride 95(L) 98 - 107 mMol/L [facility] Carbon Dioxide 29 22 - 31 mMol/L 06/05/2024 4:20 AM [facility] Anion Gap 12 5 - 15 mMol/L 06/05/2024 4:20 AM [facility] Calcium 9.2 8.5 - 10.5 mg/dL 06/05/2024 4:20 AM [facility] Est Glomerular Filtration Rate - Male 69 mL/min/1. 73 m?? 06/05/2024 4:20 AM [facility] Comment: This patient's estimated GFR [...] AM EDT Shahnaz Scanlon MD CHEMISTRY ORDERABLES [facility] [place] [address] * Potassium (06/04/2024 10:34 PM EDT) Potassium 3.7 3.5 - 5.0 mMol/L 06/04/2024 11:03 PM EDT [facility] Blood VENOUS BLOOD SPECIMEN / Unknown Venipuncture / Unknown 06/04/2024 10:34 PM EDT 06/04/2024 10:39 PM EDT Shahnaz Scanlon MD CHEMISTRY ORDERABLES [facility] [place] [address] * POC, GLUCOSE (06/04/2024 7:43 PM EDT) Glucometer, POC 175 65 - 199 mg/dL 06/04/2024 7:43 PM EDT [facility] Comment:Supplemental ranges: <140 mg/dL before meals <180 mg/dL all other times of the day. Blood CAPILLARY BLOOD / Unknown 06/04/2024 7:43 PM EDT 06/04/2024 7:43 PM EDT Melida Valdes MD POINT OF CARE TEST O RDERABLES [facility] [place] [address] * Potassium (06/04/2024 4:35 PM EDT) Potassium 4.0 3.5 - 5.0 mMol/L 06/04/2024 5:32 PM EDT [facility] Blood VENOUS BLOOD SPECIMEN / Unknown Venipuncture / Unknown 06/04/2024 4:35 PM EDT 06/04/2024 4:40 PM EDT Shahnaz Scanlon MD CHEMISTRY ORDERABLES [facility] [place] [address] * POC, GLUCOSE (06/04/2024 3:26 PM EDT) Glucometer, POC 154 65 - 199 mg/dL 06/04/2024 3:26 PM EDT [facility] Comment:Supplemental ranges: <140 mg/dL before meals <180 mg/dL all other times of the day. Blood CAPILLARY BLOOD / Unknown 06/04/2024 3:26 PM EDT 06/04/2024 3:27 PM EDT Melida Valdes MD POINT OF CARE TEST O RDERABLES Performing Organization Address [facility] Co de Phone Number [facility] [place] [address] * POC, GLUCOSE (06/04/2024 11:09 AM EDT) Glucometer, POC 188 65 - 199 mg/dL 06/04/2024 11:09 AM EDT [facility] Comment:Supplemental ranges: <140 mg/dL before meals <180 mg/dL all other times of the day. Blood CAPILLARY BLOOD / Unknown 06/04/2024 11:09 AM EDT 06/04/2024 11:09 AM EDT Delroy Fofana MD POINT OF CARE TEST ORDERABLES Performing Organization Address [facility] de Phone Number [facility] [place] [address] * Heparin (unfractionated) Level (06/04/2024 10:41 AM EDT) UF Heparin 0.43 IU/mL 06/04/2024 11:06 AM EDT [facility] Comment: Heparin (anti-Xa) levels [...] MD HEMATOLOGY ORDERABLE S Performing Organization Address City/[facility]/ZIP Co de Phone Number [facility] [place] [address] * Potassium (06/04/2024 10:41 AM EDT) Potassium 4.0 3.5 - 5.0 mMol/L 06/04/2024 11:11 AM EDT [facility] Blood VENOUS BLOOD SPECIMEN / Unknown Venipuncture / Unknown 06/04/2024 10:41 AM EDT 06/04/2024 10:46 AM EDT Shahnaz Scanlon MD CHEMISTRY ORDERABLES Performing Organization Address [facility] Co de Phone Number [facility] [place] [address] * POC, GLUCOSE (06/04/2024 7:11 AM EDT) Glucometer, POC 182 65 - 199 mg/dL 06/04/2024 7:12 AM EDT [facility] Comment:Supplemental ranges: <140 mg/dL before meals <180 mg/dL all other times of the day. Blood CAPILLARY BLOOD / Unknown 06/04/2024 7:11 AM EDT 06/04/2024 7:12 AM EDT Delroy Fofana MD POINT OF CARE TEST ORDERABLES Performing Organization Address [facility] Co de Phone Number [facility] [place] [address] * Heparin (unfractionated) Level (06/04/2024 4:38 AM EDT) Pathologist [facility] UF Heparin 0.41 IU/mL 06/04/2024 5:19 AM EDT [facility] Comment: Heparin (anti-Xa) levels [...] EDT Shahnaz Scanlon MD HEMATOLOGY ORDERABLE S [facility] [place] [address] * (ABNORMAL) CBC (with Diff) (06/04/2024 4:38 AM EDT) [facility] White Blood Cell 11.45(H) 4.00 - 9.50 x10(3)/mc L 06/04/2024 5:12 AM EDT [facility] Red Blood Cell 5.35 4.58 - 5.54 x10(6)/mc L 06/04/2024 5:12 AM EDT [facility] Hemoglobin 16.0 13.7 - 16.5 g/dL 06/04/2024 5:12 AM EDT [facility] Hematocrit 49.6(H) 40.5 - 48.5 % 06/04/2024 5:12 AM [facility] Mean Cell Volume 92.7 82.9 - 93.1 fL 06/04/2024 5:12 AM [facility] Mean Cell Hemoglobin 29.9 27.5 - 32.1 pg 06/04/2024 5:12 AM [facility] Mean Cell Hemoglobin Concentration 32.3 32.0 - 35.7 g/dL 06/04/2024 5:12 AM [facility] Platelet 222 145 - 357 x10(3)/mc L 06/04/2024 5:12 AM [facility] Mean Platelet Volume 9.5 7.6 - 12.9 fL 06/04/2024 5:12 AM [facility] RDW Standard Deviation 47.6(H) 36.0 - 45.0 fL 06/04/2024 5:12 AM [facility] RDW coefficient of variation 14.1(H) 11.4 - 13.8 % 06/04/2024 5:12 AM [facility] NRBC% auto 0.0 % 06/04/2024 5:12 AM [facility] NRBC Absolute <0.01 <0.01 x10(3)/mc L 06/04/2024 5:12 AM [facility] Neutrophil % 60.3 % 06/04/2024 5:12 AM [facility] Neutrophil Absolute (ANC) - Automated 6.91(H) 1.70 - 6.10 x10(3)/mc L 06/04/2024 5:12 AM [facility] Lymph % 25.1 % 06/04/2024 5:12 AM [facility] Lymph Absolute 2.87 0.90 - 3.20 x10(3)/mc L 06/04/2024 5:12 AM [facility] Monocyte % 10.6 % 06/04/2024 5:12 AM [facility] Monocyte Absolute 1.21(H) 0.30 - 0.90 x10(3)/mc L 06/04/2024 5:12 AM EDT [facility] Eos % 2.8 % 06/04/2024 5:12 AM EDT [facility] Eos Absolute 0.32 0.00 - 0.40 x10(3)/mc L 06/04/2024 5:12 AM EDT [facility] Basophil % 0.7 % 06/04/2024 5:12 AM EDT [facility] Baso Absolute 0.08 0.00 - 0.10 x10(3)/mc L 06/04/2024 5:12 AM EDT [facility] Immature Gran % 0.5 % 5:12 AM EDT [facility] Immature Gran Absolute 0.06(H) 0.00 - 0.04 x10(3)/mc L 06/04/2024 5:12 AM EDT [facility] Blood VENOUS BLOOD SPECIMEN / Unknown Venipuncture / Unknown 06/04/2024 4:38 AM EDT 06/04/2024 5:07 AM EDT Shahnaz Scanlon MD HEMATOLOGY ORDERABLE S [facility] [place] [address] * Magnesium (06/04/2024 4:38 AM EDT) Magnesium 0.84 0.69 - 1.07 mMol/L 06/04/2024 5:35 AM EDT [facility] Blood VENOUS BLOOD SPECIMEN / Unknown Venipuncture / Unknown 06/04/2024 4:38 AM EDT 06/04/2024 5:07 AM EDT Shahnaz Scanlon MD CHEMISTRY ORDERABLES [facility] [place] [address] * (ABNORMAL) Basic Metabolic Panel (06/04/2024 4:38 AM EDT) Glucose 118 65 - 199 mg/dL 06/04/2024 5:35 AM [facility] Comment:Glucose Concentratio n >=200 mg/dL plus symptoms is consistent with Diabetes Mellitus. Blood Urea Nitrogen 22(H) 10 - 20 mg/dL 06/04/2024 5:35 AM [facility] Creatinine 1.22 0.80 - 1.50 mg/dL 06/04/2024 5:35 AM [facility] Sodium 137 135 - 145 mMol/L 06/04/2024 5:35 AM [facility] Potassium 3.6 3.5 - 5.0 mMol/L 06/04/2024 5:35 AM [facility] Chloride 97(L) 98 - 107 mMol/L 06/04/2024 5:35 AM [facility] Carbon Dioxide 29 22 - 31 mMol/L 06/04/2024 5:35 AM [facility] Anion Gap 11 5 - 15 mMol/L 06/04/2024 5:35 AM [facility] Calcium 9.0 8.5 - 10.5 mg/dL 06/04/2024 5:35 AM [facility] Est Glomerular Filtration Rate - Male 65 mL/min/1. 73 m?? 06/04/2024 5:35 AM [facility] Comment: This patient's estimated GFR [...] Scanlon MD CHEMISTRY ORDERABLES Performing Organization Address [facility]/ZIP Co de Phone Number [facility] [place] [address] * Heparin (unfractionated) Level (06/03/2024 8:58 PM EDT) UF Heparin 0.27 IU/mL 06/03/2024 9:33 PM EDT [facility] Comment: Heparin (anti-Xa) levels [...] MD HEMATOLOGY ORDERABLE S Performing Organization Address City/[facility]/ZIP Co de Phone Number [facility] [place] [address] * POC, GLUCOSE (06/03/2024 8:05 PM EDT) Glucometer, POC 136 65 - 199 mg/dL 06/03/2024 8:05 PM EDT [facility] Comment:Supplemental ranges: <140 mg/dL before meals <180 mg/dL all other times of the day. Blood CAPILLARY BLOOD / Unknown 06/03/2024 8:05 PM EDT 06/03/2024 8:05 PM EDT Delroy Fofana MD POINT OF CARE TEST ORDERABLES Performing Organization Address [facility] Co de Phone Number [facility] [place] [address] * POC, GLUCOSE (06/03/2024 5:48 PM EDT) Glucometer, POC 191 65 - 199 mg/dL 06/03/2024 5:48 PM EDT [facility] Comment:Supplemental ranges: <140 mg/dL before meals <180 mg/dL all other times of the day. Blood CAPILLARY BLOOD / Unknown 06/03/2024 5:48 PM EDT 06/03/2024 5:49 PM EDT Delroy Fofana MD POINT OF CARE TEST ORDERABLES Performing Organization Address [facility] Co de Phone Number [facility] [place] [address] * CT Chest wo Contrast (Generic) (06/03/2024 4:33 PM EDT) WORKSTATION ID [id number] DH RAD Anatomical Region Laterality Modality Chest Computed Tomogra phy Impressions 06/03/2024 4:47 PM EDT Cardiomegaly. Biventricular ICD leads in place. Thank you for letting us participate in the care of this patient. ??If you are a health care provider and have any questions regarding this report, please contact the number below. ??For patients who have questions please contact the health caretaker that requested your imaging first. ? Electronically signed by: Stuart Aponte MD, [facility] ??([phone]), at 06/03/2024 4:47 PM Narrative 06/03/2024 4:47 [...] patients who have questions please contactthe health caretaker that requested your imaging first. Bobby Loja MD IMG CT ORDERABLES * Carotid Duplex, Bilateral (06/03/2024 2:19 PM EDT) VB Text Report Department: Vascular Surgery Lab Patient: [id number] (GEORGE MEHTA) CPT: 14435 Referring Physician: BOBBY LOJA ?? Phone: Indications: [...] Heparin 0.15 IU/mL 06/03/2024 1:13 PM EDT [facility] Comment: Heparin (anti-Xa) levels [...] EDT Shahnaz Scanlon MD HEMATOLOGY ORDERABLE S [facility] [place] [address] * POC, GLUCOSE (06/03/2024 11:14 AM EDT) [facility] Signature Glucometer, POC 166 65 - 199 mg/dL 06/03/2024 11:14 AM EDT [facility] Comment:Supplemental ranges: <140 mg/dL before meals <180 mg/dL all other times of the day. Blood CAPILLARY BLOOD / Unknown 06/03/2024 11:14 AM EDT 06/03/2024 11:14 AM EDT Delroy Fofana MD POINT OF CARE TEST ORDERABLES [facility] [place] [address] * (ABNORMAL) Troponin-T, High Sensitivity 3 Hour (06/03/2024 10:06 AM EDT) Troponin-T, High Sensitivity 266(H) <=22 ng/L 06/03/2024 10:50 AM EDT [facility] Comment: This patient's troponin [...] troponin value can be found in the [facility] Test Catalog Troponin - https://[email or web address]Gasngo.testcatalog.org/catalogs/565/files/64469 Reference: [employer] [place] Definition of Myocardial Infarction. Journal of the [place] [employer] 2018;72:5565-8197 Troponin-T, HS 3 hr delta 06/03/2024 10:50 AM EDT [facility] Comment:Delta troponin value not calculated, sample collected outside of delta calculation time limit. Blood VENOUS BLOOD SPECIMEN / Unknown IP Care Team Draw / Unknown 06/03/2024 10:06 AM EDT 06/03/2024 10:15 AM EDT Delroy Fofana MD CHEMISTRY ORDERABLE S [facility] [place] [address] * ECHO COMPLETE W CONTRAST (06/03/2024 8:46 AM EDT) Anatomical Region Laterality Modality Cardiac Other 06/03/2024 6:52 AM EDT Narrative 06/03/2024 10:32 AM EDT [address] [place] [id number] ? Echocardiogram Report Name: GEORGE MEHTA ?Study Date: 06/03/2024 06:52 AM : 1955 ? Height: 168 cm ? Account: [id number] Age: 69 yrs ? Weight: 102 kg Gender: Male ?BSA: 2.1 m2 Ordering Physician: SHAHNAZ SCANLON Referring Physician: NEHAL QUINTERO Performed By: Sara Kebede RDCS Reason For Study: STEMI Exam Location: [facility]. Interpretation Summary -Left ventricular systolic [...] fellow performed study of today's date). Procedure Complete-04142. Image enhancement Optison was used for left [...] valve mean: 3.2 mmHg MV E max mureil: 124.3 cm/sec MV A max muriel: 98.5 [...] Note Jonnie Jordan MD - 06/03/2024 [address] [id number] Echocardiogram Report Name: GEORGE MEHTA Study Date: 406:52 AM : 1955 Height: 168 cm Account: [id number] Age: 69 yrs Weight: 102 kg Gender: Male BSA: 2.1 m2 Ordering Physician: SHAHNAZ SCANLON Referring Physician: NEHAL QUINTERO Performed By: Sara Kebede RDCS Reason For Study: STEMI Exam Location: [facility]. Interpretation Summary -Left ventricular systolic [...] a fellow performed study of's date). Procedure Complete-14550. Image enhancement Optison was used for left [...] 289(H) <=22 ng/L 06/03/2024 9:26 AM EDT [facility] Comment: This patient's troponin [...] troponin value can be found in the [facility] Test Catalog Troponin - https://one-.testcatalog.org/catalogs/565/files/25812 Reference: [employer] [place] Definition of Myocardial Infarction. Journal of the [place] [employer] 2018;72:6487-3464 Troponin-T, HS 1 hr delta 5 ng/L 06/03/2024 9:26 AM EDT [facility] Comment:The 1 hour Troponin T delta value is the absolute difference between the Troponin T concentrations of the initial and subsequent sample collected between 45 - 120 minutes following the initial collection. Blood VENOUS BLOOD SPECIMEN / Unknown IP Care Team Draw / Unknown 06/03/2024 8:27 AM EDT 06/03/2024 8:37 AM EDT Delroy Fofana MD CHEMISTRY ORDERABLE S [facility] [place] [address] * POC, GLUCOSE (06/03/2024 7:54 AM EDT) [facility] Signature Glucometer, POC 195 65 - 199 mg/dL 06/03/2024 7:55 AM EDT [facility] Comment:Supplemental ranges: <140 mg/dL before meals <180 mg/dL all other times of the day. Blood CAPILLARY BLOOD / Unknown 06/03/2024 7:54 AM EDT 06/03/2024 7:55 AM EDT Nuha Rojo MD POINT OF CARE TEST ORDERABLES [facility] [place] [address] * (ABNORMAL) Troponin-T, High Sensitivity (06/03/2024 7:39 AM EDT) Troponin-T, High Sensitivity Initial 284(H) <=22 ng/L 06/03/2024 8:29 AM EDT [facility] Comment: This patient's troponin [...] troponin value can be found in the [facility] Test Catalog Troponin - https://[facility]-.testcatalog.org/catalogs/565/files/21964 Reference: [employer] [place] Definition of Myocardial Infarction. Journal of the [place] [employer] 2018;72:0561-8129 Blood VENOUS BLOOD SPECIMEN / Unknown IP Care Team Draw / Unknown 06/03/2024 7:39 AM EDT 06/03/2024 7:48 AM EDT Delroy Fofana MD CHEMISTRY ORDERABLE S [facility] [place] [address] * (ABNORMAL) Troponin-T, High Sensitivity 3 Hour (06/03/2024 5:11 AM EDT) Troponin-T, High Sensitivity 254(H) <=22 ng/L 06/03/2024 5:49 AM EDT [facility] Comment: This patient's troponin [...] troponin value can be found in the [facility] Test Catalog Troponin - https://one-.testcatalog.org/catalogs/565/files/54799 Reference: [place] Definition of Myocardial Infarction. Journal of the [place] [employer] 2018;72:2497-7131 Troponin-T, HS 3 hr delta 46 ng/L 06/03/2024 5:49 AM EDT [facility] Comment:The 3 hour Troponin T delta value is the absolute difference between the Troponin T concentrations of the initial and subsequent sample collected between 2 h: 45 min and 6 h following the initial collection Blood VENOUS BLOOD SPECIMEN / Unknown IP Care Team Draw / Unknown 06/03/2024 5:11 AM EDT 06/03/2024 5:20 AM EDT Shahnaz Scanlon MD CHEMISTRY ORDERABLES [facility] [place] [address] * (ABNORMAL) Troponin-T, High Sensitivity 1 Hour (06/03/2024 3:07 AM EDT) Troponin-T, High Sensitivity 218(H) <=22 ng/L 06/03/2024 3:39 AM EDT [facility] Comment: This patient's troponin [...] troponin value can be found in the [facility] Test Catalog Troponin - https://[facility] centerGasngo.testcatalog.org/catalogs/565/files/27362 Reference: Fourth [place] Definition of Myocardial Infarction. Journal of the [place] [employer] 2018;72:1601-4104 Troponin-T, HS 1 hr delta 10 ng/L 06/03/2024 3:39 AM EDT [facility] Comment:The 1 hour Troponin T delta value is the absolute difference between the Troponin T concentrations of the initial and subsequent sample collected between 45 - 120 minutes following the initial collection. Blood VENOUS BLOOD SPECIMEN / Unknown IP Care Team Draw / Unknown 06/03/2024 3:07 AM EDT 06/03/2024 3:12 AM EDT Shahnaz Scanlon MD CHEMISTRY ORDERABLES [facility] [place] [address] * XR Chest One View (06/03/2024 2:41 AM EDT) WORKSTATION ID [id number] RAD Anatomical Region Laterality Modality Chest N/A Digital Radiogra phy Impressions 06/03/2024 3:06 AM EDT No radiographically evident acute cardiopulmonary process. Thank you for letting us participate in the care of this patient. ??If you are a health care provider and have any questions regarding this report, please contact the number below. ??For patients who have questions please contact the health caretaker that requested your imaging first. ? Narrative [...] patients who have questions please contactthe health caretaker that requested your imaging first. Shahnaz Scanlon MD IMG DX ORDERABLES * Heparin (unfractionated) Level (06/03/2024 2:13 AM EDT) UF Heparin 0.56 IU/mL 06/03/2024 4:13 AM EDT [facility] Comment: Heparin (anti-Xa) levels [...] EDT Shahnaz Scanlon MD HEMATOLOGY ORDERABLE S [facility] [place] [address] * (ABNORMAL) Troponin-T, High Sensitivity (06/03/2024 2:13 AM EDT) Troponin-T, High Sensitivity Initial 208(H) <=22 ng/L 06/03/2024 3:02 AM EDT [facility] Comment: This patient's troponin [...] troponin value can be found in the [facility] Test Catalog Troponin - https://one-.testcatalog.org/catalogs/565/files/10870 Reference: Fourth [place] Definition of Myocardial Infarction. Journal of the [place] College [employer]iology 2018;72:2825-7008 Blood VENOUS BLOOD SPECIMEN / Unknown IP Care Team Draw / Unknown 06/03/2024 2:13 AM EDT 06/03/2024 2:32 AM EDT Shahnaz Scanlon MD CHEMISTRY ORDERABLES Performing Organization Address City/[facility]/ZIP Co de Phone Number [facility] [place] [address] * Magnesium (06/03/2024 2:13 AM EDT) Magnesium 0.86 0.69 - 1.07 mMol/L 06/03/2024 3:02 AM EDT [facility] Blood VENOUS BLOOD SPECIMEN / Unknown IP Care Team Draw / Unknown 06/03/2024 2:13 AM EDT 06/03/2024 2:32 AM EDT Shahnaz Scanlon MD CHEMISTRY ORDERABLES [facility] [place] [address] * Basic Metabolic Panel (06/03/2024 2:13 AM EDT) Glucose 126 65 - 199 mg/dL [facility] Comment:Glucose Concentratio n >=200 mg/dL plus symptoms is consistent with Diabetes Mellitus. Blood Urea Nitrogen 20 10 - 20 mg/dL 06/03/2024 3:02 AM EDT [facility] Creatinine 1.13 0.80 - 1.50 mg/dL 06/03/2024 3:02 AM [facility] Sodium 139 135 - 145 mMol/L 06/03/2024 3:02 AM [facility] Potassium 4.2 3.5 - 5.0 mMol/L 06/03/2024 3:02 AM [facility] Chloride 101 98 - 107 mMol/L 06/03/2024 3:02 AM [facility] Carbon Dioxide 26 22 - 31 mMol/L 06/03/2024 3:02 AM [facility] Anion Gap 12 5 - 15 mMol/L 06/03/2024 3:02 AM [facility] Calcium 9.8 8.5 - 10.5 mg/dL 06/03/2024 3:02 AM [facility] Est Glomerular Filtration Rate - Male 71 mL/min/1. 73 m?? 06/03/2024 3:02 AM [facility] Comment: This patient's estimated GFR [...] AM EDT Shahnaz Scanlon MD CHEMISTRY ORDERABLES [facility] [place] [address] * (ABNORMAL) CBC (with Diff) (06/03/2024 2:13 AM EDT) White Blood Cell 11.16(H) 4.00 - 9.50 x10(3)/mc L 06/03/2024 2:37 AM EDT [facility] Red Blood Cell 5.09 4.58 - 5.54 x10(6)/mc L 06/03/2024 2:37 AM EDT [facility] Hemoglobin 15.0 13.7 - 16.5 g/dL 06/03/2024 2:37 AM EDT [facility] Hematocrit 47.4 40.5 - 48.5 % 06/03/2024 2:37 AM EDT [facility] Mean Cell Volume 93.1 82.9 - 93.1 fL 06/03/2024 2:37 AM EDT [facility] Mean Cell Hemoglobin 29.5 27.5 - 32.1 pg 06/03/2024 2:37 AM EDT [facility] Mean Cell Hemoglobin Concentration 31.6(L) 32.0 - 35.7 g/dL 06/03/2024 2:37 AM EDT [facility] Platelet 217 145 - 357 x10(3)/mc L 06/03/2024 2:37 AM EDT [facility] Mean Platelet Volume 9.5 7.6 - 12.9 fL 06/03/2024 2:37 AM EDT [facility] RDW Standard Deviation 49.0(H) 36.0 - 45.0 fL 06/03/2024 2:37 AM [facility] RDW coefficient of variation 14.1(H) 11.4 - 13.8 % 06/03/2024 2:37 AM [facility] NRBC% auto 0.0 % 06/03/2024 2:37 AM [facility] NRBC Absolute <0.01 <0.01 x10(3)/mc L 06/03/2024 2:37 AM [facility] Neutrophil % 58.4 % 06/03/2024 2:37 AM [facility] Neutrophil Absolute (ANC) - Automated 6.51(H) 1.70 - 6.10 x10(3)/mc L 06/03/2024 2:37 AM [facility] Lymph % 29.9 % 06/03/2024 2:37 AM [facility] Lymph Absolute 3.34(H) 0.90 - 3.20 x10(3)/mc L 06/03/2024 2:37 AM [facility] Monocyte % 8.1 % 06/03/2024 2:37 AM [facility] Monocyte Absolute 0.90 0.30 - 0.90 x10(3)/mc L 06/03/2024 2:37 AM [facility] Eos % 2.4 % 06/03/2024 2:37 AM [facility] Eos Absolute 0.27 0.00 - 0.40 x10(3)/mc L 06/03/2024 2:37 AM [facility] Basophil % 0.8 % 06/03/2024 2:37 AM [facility] Baso Absolute 0.09 0.00 - 0.10 x10(3)/mc L 06/03/2024 2:37 AM [facility] Immature Gran % 0.4 % 2:37 AM [facility] Immature Gran Absolute 0.05(H) 0.00 - 0.04 x10(3)/mc L 06/03/2024 2:37 AM [facility] Blood VENOUS BLOOD SPECIMEN / Unknown IP Care Team Draw / Unknown 06/03/2024 2:13 AM EDT 06/03/2024 2:31 AM EDT Shahnaz Scanlon MD HEMATOLOGY ORDERABLE S [facility] [place] [address] * Lipid Panel (Reflex Direct LDL) (06/03/2024 2:13 AM EDT) Cholesterol, Total 76 mg/dL 06/03/2024 3:02 AM [facility] Comment: Desirable: < 200 mg/dL Borderline High: 200 - 239 mg/dL High: > or = 240 mg/dL Triglyceride 75 mg/dL 06/03/2024 3:02 AM [facility] Comment: Normal: <150 mg/dL Borderline High: 150-199 mg/dL High: 200-499 mg/dL Very High: > or =500 mg/dL HDL Cholesterol 39 mg/dL 3:02 AM [facility] Comment:Males: High Risk: <4 0 mg/dL LDL Cholesterol 21 mg/dL 3:02 AM [facility] Comment: Desirable: <100 mg/dL Above Desirable: 100-129 mg/dL Borderline High: 130-159 mg/dL High: 160-189 mg/dL Very High: > or =190 mg/dL Note: LDL calculation updated to the NIH LDL formula as of 03/07/2024 Non-HDL Cholesterol 37 mg/dL 06/03/2024 3:02 AM [facility] Comment: Desirable: <130 mg/dL Above Desirable: 130-159 mg/dL Borderline High: 160-189 mg/dL High: 190-219 mg/dL Very High: > or = 220 mg/dL Blood VENOUS BLOOD SPECIMEN / Unknown IP Care Team Draw / Unknown 06/03/2024 2:13 AM EDT 06/03/2024 2:32 AM EDT [facility] - 06/03/2024 3:02 AM EDT [...] ACC/AHA Guidelines (most recently Bruce et al. [facility] 05/07/22): * For individuals with atherosclerotic [...] Scanlon MD CHEMISTRY ORDERABLES Performing Organization Address [facility] Co de Phone Number [facility] [place] [address] * (ABNORMAL) APTT (06/03/2024 2:13 AM EDT) Partial Thromboplastin Time 105(HHH) 25 - 37 sec 06/03/2024 4:13 AM EDT [facility] Comment: The PTT is [...] MD HEMATOLOGY ORDERABLE S Performing Organization Address [facility] Co de Phone Number [facility] [place] [address] * Prothrombin Time (06/03/2024 2:13 AM EDT) Prothrombin Time 11.5 9.4 - 12.5 sec 06/03/2024 4:13 AM EDT [facility] International Normalization Ratio 1.0 <=4.9 06/03/2024 4:13 AM EDT [facility] Comment: An INR < [...] EDT Shahnaz Scanlon MD HEMATOLOGY ORDERABLE S [facility] [place] [address] * Hepatic Function Panel (06/03/2024 2:13 AM EDT) Albumin 3.8 3.2 - 5.2 g/dL 06/03/2024 3:02 AM EDT [facility] Aspartate Aminotransferase 20 <=39 unit/L 06/03/2024 3:02 AM EDT [facility] Alanine Aminotransferase 12 0 - 55 unit/L 06/03/2024 3:02 AM EDT [facility] Alkaline Phosphatase 76 40 - 130 unit/L 06/03/2024 3:02 AM EDT [facility] Bilirubin, Total 0.4 <=1.3 mg/dL 06/03/2024 3:02 AM EDT [facility] Bilirubin, Direct <0.2 0.0 - 0.3 mg/dL 06/03/2024 3:02 AM EDT [facility] Protein, Total 7.0 6.1 - 8.0 g/dL 06/03/2024 3:02 AM EDT [facility] Blood VENOUS BLOOD SPECIMEN / Unknown IP Care Team Draw / Unknown 06/03/2024 2:13 AM EDT 06/03/2024 2:32 AM EDT Shahnaz Scanlon MD CHEMISTRY ORDERABLES [facility] [place] [address] * (ABNORMAL) pro-Brain Natriuretic Peptide (06/03/2024 2:13 AM EDT) NT-proBNP 1,628(H) <=124 pg/mL 06/03/2024 4:15 AM EDT [facility] Blood VENOUS BLOOD SPECIMEN / Unknown IP Care Team Draw / Unknown 06/03/2024 2:13 AM EDT 06/03/2024 2:32 AM EDT Shahnaz Scanlon MD CHEMISTRY ORDERABLES Performing Organization Address City/[facility]/ZIP Co de Phone Number [facility] [place] [address] * Phosphorus (06/03/2024 2:13 AM EDT) Phosphorus 4.4 2.5 - 4.5 mg/dL 06/03/2024 3:02 AM EDT [facility] Blood VENOUS BLOOD SPECIMEN / Unknown IP Care Team Draw / Unknown 06/03/2024 2:13 AM EDT 06/03/2024 2:32 AM EDT Shahnaz Scanlon MD CHEMISTRY ORDERABLES Performing Organization Address City/[facility]/ZIP Co de Phone Number [facility] [place] [address] * EKG 12 Lead (06/03/2024 1:45 AM EDT) Ventricular rate 63 BPM MUSE SYSTEM Atrial Rate 63 BPM MUSE SYSTEM P-R Interval 168 ms MUSE SYSTEM QRS Duration 96 ms MUSE SYSTEM Q-T Interval 400 ms MUSE SYSTEM QTC Calculated (Bezet) 409 ms MUSE SYSTEM Calculated P [place] 65 degrees MUSE SYSTEM Calculated R [place] 70 degrees MUSE SYSTEM Calculated T [place] -86 degrees MUSE SYSTEM INTERPRETATION Atrial-sensed ventricular-paced rhythm Abnormal ECG No previous ECGs available I personally reviewed the tracing and edited the fellows interpretation Confirmed by fellow Sunni Agudelo ([id number]) on 06/04/2024 3:55:40 PM Confirmed by MD Tamia, Stuart Perry ([id number]) on 06/05/2024 11:46:48 AM MUSE SYSTEM 06/03/2024 1:45 AM EDT 06/05/2024 11:46 AM EDT Shahnaz Scanlon MD ECG ORDERABLES MUSE SYSTEM * CARDIAC CATHETERIZATION (06/03/2024 12:42 AM EDT) Anatomical Region Laterality Modality Other Narrative 06/04/2024 2:22 PM EDT ?[facility] ? Cardiac Catheterization/Intervention Report ? Patient Name: Tyson, George L. ? Procedure Date: 06/02/2024 ? A #: [id number] ? Primary Physician: Nuha Shen I ? Case #: [id number] ? File Name: [id number] ? Catheterization Order Number: [id number] ? [facility] ? Final Report [place], [place] ? Patient Name: ? George L. Tyson ? ID#: ?[id number] ? : ?1955 ? Procedure Date: ? June 02, 2024 ? Case #: ? [id number] ? Room: ? 5 ? Case Physician: ? Nuha Shen M.D. ? Start: ?23:23 ? Admission: ??06/02/2024 ? Referring Physician: ??Junaid Randlal ?Discharge: ??06/21/2024 ? Procedures: ?* Coronary Angiography [...] procedure was Emergent. The indication for ?the labor specialist visit is ACS less than or equal [...] ?3.5 guiding catheter and a 3.5 Fr [facility] [place] [place] 20 Mhz using Manual ?pullback. ??Imaging was [...] 3.5 guiding catheter and a 3.5 Fr [facility] [place] 20 Mhz using ?Manual pullback. ??Imaging was [...] Procedure Note Nuha Shen MD - 07/20/2024 [facility] Cardiac Catheterization/Intervention Report Patient Name: George Mehta Procedure Date: 06/02/2024 A #: [id number] Primary Physician: Nuha Shen I Case #: [id number] File Name: [id number] Catheterization Order Number: [id number] [facility] FinalReport [place], [place] Patient Name: George Mehta ID#:[id number] :1955 Procedure Date: June 02, 2024 Case [...] was designated as ASA Class IV. The [facility] clinicalfrailty scale is 5: Mildly Frail. Diagnostic Tests: Electrocardiography: EKG was assessed by ECG. EKG was Abnormal. EKG showed STDeviation >= 0.5 mm. Medications Prior to Procedure: Sacubitril and Valsartan, Aspirin, Beta Erik, Statin and Thrombolytic (any). Indications for Diagnostic Cath: The priority of the diagnostic procedure was Emergent. Theindication for the labor specialist visit is ACS less than or equal [...] units of heparin were administered. A total [id number] of Omnipaque were opened, 84cc of Omnipaque were administered vga89rl of Omnipaque were wasted. Radiation: Fluoro time [...] 3.5 guiding catheter and a 3.5 Fr [facility] 20 Mhz usingManual pullback. Imaging was successful. [...] 3.5 guiding catheter and a 3.5 Fr [facility] 20 Mhzusing Manual pullback. Imaging was successful. Indication: IVUS performed for pre intervention planning. Findings Pre-Intervention: scattered plaque, calcification and [id number] degrees calcification. Findings Post-Intervention: Stent not imaged [...] * POC, GLUCOSE (06/02/2024 11:31 PM EDT) [facility] Glucometer, POC 156 65 - 199 mg/dL 06/02/2024 11:31 PM EDT [facility] Comment:Supplemental ranges: <140 mg/dL before meals <180 mg/dL all other times of the day. Blood CAPILLARY BLOOD / Unknown 06/02/2024 11:31 PM EDT 06/02/2024 11:31 PM EDT Nuha Rojo MD POINT OF CARE TEST ORDERABLES [facility] [place] [address] documented in this encounter Visit Diagnoses Not [...] 2100, Last dose on Fri06/23/24 at 0900, Engineering Programmer recommended duration is 3 days., Routine Given [...] 8:02 PM EST 2 tablets sodium chloride ([place]) 0.65 % nasal spray 1 spray 1 [...] Mary Lou Lane, JAMIE)1755 (Given - Provider: Mar yLou Lane RN) 0813 (Given - Provider: Michelle [...] DAILY, First dose (after last modification) on [facility] 06/19/24 at 0900, Until Discontinued, [...] 2100, Last dose on Fri06/23/24 at 0900, Engineering Programmer recommended duration is 3 days., Routine 2043 [...] oral route first line., Routine sodium chloride ([place]) 0.65 % nasal spray 1 spray 1 [...] 6 hours upon arrival to Unit. Give IL if unable to take PO, Routine Group [...] Routine documented in this encounter Care Teams Nitrocellulose Operator Relationship Specialty Start Date End Date Mauro Berumen MD [address] [place] [address] PCP - General Family Medicine 06/02/24 documented as of this encounter
--- OUTSIDE RECORDS SUMMARY | 2024-08-13 11:28 | XMS_ITS | Referral Summary ---
Author Organization [facility] Address [address] [place] [address] Care Team Providers Care Tube Fitter Name Role Phone Jesu Guerra [facility] Primary Care Provider [phone] Social History Tobacco Use Types Packs/Day Years Used Date Smoking Tobacco: Never Assessed Sex and Gender Information Value Date Recorded Sex Assigned at Not on file Legal Sex Male 23:22 EDT Gender Identity Not on file Sexual Orientation Not on file Plan of Treatment Not on file Insurance [place] [phone] Care Teams Tube Fitter Relationship Specialty Start Date End Date Jesu Guerra, DNP [facility] [place] [address] PCP - General Family Medicine - Primary Care 10/03/23
--- OUTSIDE RECORDS SUMMARY | 2024-08-13 11:28 | XMS_ITS | Clinical Summary ---
Author Organization [facility] Address [address] [place] [address] Care Team Providers Care Ordnance Artificer Helper Name Role Phone Jesu Guerra [facility] Primary Care Provider [phone] Social History Tobacco Use Types Packs/Day Years [...] 2032 Insurance [employer] MEDICARE Care Teams Ordnance Artificer Helper Relationship Specialty Start Date End Date Jesu Guerra, D[place] [place] [address] PCP - General Family Medicine - Primary Care 10/03/23
--- OUTSIDE RECORDS SUMMARY | 2024-08-13 11:28 | XMS_ITS | Encounter Summary ---
Author Organization [facility] Address [address] [place] [address] Care Team Providers Care Systems Support Engineer Name Role Phone Jesu Guerra [facility] Primary Care Provider [phone] Encounter Details Date Type Department Care Team (Late st Contact Info) Description 10/31/2023 Lab Requisition [facility] Pathology & Laboratory Medicine - [facility] [address] [place] [address] Yousif Carlin PA [address] [place] [address] [address] [place] [phone] Melanocytic nevi, unspecified Social History Tobacco Use [...] management options, if applicable. 11/04/2023 9:[address] [facility] Final Diagnosis A. SKIN OF CHEEK, LEFT, SHAVE BIOPSY: - Seborrheic keratosis, pigmented. 11/04/2023 9:[address] [facility] Attestation By the signature [...] dermis and patchy lichenoid inflammation. 11/04/2023 9:43 [facility] Clinical History Atypical nevus, history melanoma; clinical diagnosis code: D22.9 11/04/2023 9:43 [facility] Gross Description A. Received in formalin labelled with proper patient identification (initials K, K) and L cheek is a 1.3 x 1.0 x 0.1 cm irregular shave of mottled rodriguez white to dark brown skin. The margin is inked. The specimen is trisected and entirely submitted in A1. HENOK GOLDEN(ASC) 11/03/2023 9:00 11/04/2023 9:43 [facility] Performing Lab [facility] 11/04/2023 9:43 [facility] Scanned Images 11/04/2023 9:[address] [facility] Tissue SPECIMEN FROM SKIN / Unknown 10/31/2023 14:10 EDT 10/31/2023 23:24 EDT us Yousif WHITING PATHOLOGY ORDERABLES Final Result [facility] [address] [place] [address] documented in this encounter Visit Diagnoses Diagnosis Melanocytic nevi, unspecified documented in this encounter Care Teams Systems Support Engineer Relationship Specialty Start Date End Date Jesu Guerra, DNP [address] [place] [address] PCP - General Family Medicine - Primary Care 10/03/23 documented as of this encounter
--- OUTSIDE RECORDS SUMMARY | 2024-08-13 11:28 | XMS_ITS | Encounter Summary ---
Author Organization [facility] Address [facility] [place] [address] Care Team Providers Care Profiling Machine Operator Name Role Phone Mauro Berumen MD Primary Care Provider [phone] Encounter Details Date Type Department Care Team (Late st Contact Info) Description 06/02/2024 External Results Administration [facility] [place] [phone] Social History Tobacco Use Types Packs/Day Years Used Date Smoking Tobacco: Never Assessed [facility] Utilities Answer Date Recorded In the past 12 months has th e electric, gas, oil, or water [employer] threatened to shut off services in your [...] any time in the past 12 m [facility], were you homeless or living [...] on filedocumented in this encounter Care Teams Profiling Machine Operator Relationship Specialty Start Date End Date Mauro Berumen MD [address] [place] [address] PCP - General Family Medicine 06/02/24 documented as of this encounter
--- OUTSIDE RECORDS SUMMARY | 2024-08-13 11:28 | XMS_ITS | Encounter Summary ---
Author Organization [facility] Address [facility] [place] [address] Care Team Providers Care Cancer Program Consultant Name Role Phone Mauro Berumen MD Primary Care Provider [phone] Encounter Details Date Type Department Care Team (Late st Contact Info) Description 06/02/2024 Notes Only Cardiology [facility] [place] [phone] Sascha Silva MD [facility] [place] [address] Social History Tobacco Use Types Packs/Day Years Used Date Smoking Tobacco: Never Assessed [facility] Utilities Answer Date Recorded In the [...] any time in the past 12 m [facility], were you homeless or living in a chcf (including now)? No 06/03/2024 IPV Inpatient Questions [...] Data If [facility] which patient presented[facility] In Date and Time of First Medical Contact: 06/02/2024 9:20 PM Medical History (prior to current presentation) Myocardial Infarction: Yes Diabetes Mellitus: Yes Prior Percutaneous Coronary Intervention: Yes Prior Coronary Artery Bypass Graft: No Presenting Symptoms per OSH/EMS Free Text 855 PM acute on set pressure on chest. Presented to ED. Appears ashen. No contraindicationst to lytics. No cabg, 3X [place] with JENNA, most recent 5 years ago. 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 to cardiac catheterization technologist STEMI Alert called: Yes Validation Analyst Activated by: Shredded Filler Cigar Maker Machine Initial Disposition: Admit Validation Analyst documented in this encounter Plan of Treatment Not on file documented as of this encounter Visit Diagnoses Not on filedocumented in this encounter Care Teams Cancer Program Consultant Relationship Specialty Start Date End Date Mauro Berumen MD [address] [place] [address] PCP - General Family Medicine 06/02/24 documented as of this encounter
--- OUTSIDE RECORDS SUMMARY | 2024-08-13 11:28 | XMS_ITS | Continuity of Care Document ---
Author Organization [facility] Address [address] [place] [id number] Assessment No assessment recorded. Plan of Treatment [...] Patien t Name: Erica Hernandez Unit #: [id number] Loc: ER Orderi ng Provid er: Accoun t #: [id number] Status : REG ER Primar y [...] MD. Lanette bernard:Mikey Luque MD Access ion#=[id number] Ordere d By: CC: ------ ------ [...] Thank- you. sergio [facility] [address], [place], [address] 06/07/2024 08:13:56 06/03/20 24 06/03/2024 x-ray imagi ng repor t Patien t Name: Erica Hernandez Unit #: [id number] Loc: ER Lanette bernard Provid er: Moises Hua Acctrace t #: [id number] Status : DEP ER Primar y Care [...] Thank- you. INTERFACE [facility] [address] [facility] , [place], [address] 06/03/2024 08:29:41 Result Notes None recorded. Problems Name Problem SNOMED Code Status Onset Date Resolution Date Notes Provider Name and Address Organization Details Recorded Time Coronary artery bypass grafts x 3 Active [address], [place], [address] , [facility] 4 11:27:04 Type 2 diabetes mellitus 15678996 Active [address], [place], [address], [facility]. 4 16:23:15 Coronary arterioscle rosis 87010918 Active 2023 MT x 3, with stents Pacer AICD MD Sh[address], [place], [address], [facility]. 4 23:10:58 Essential hypertensio n 18134704 Active [address], [place], [address], [facility]. 4 23:10:54 Chronic left-sided congestive heart failure 0130118 Active 2023 ICD. last echo 50% up from 35% post MT MD Sh[address], [place], [address], [facility]. 4 18:10:13 Malignant melanoma 360826682 Active 2016 left scalp MD Shil[address], [place], [address], [facility]. 4 14:10:50 Adult health examination Active [address], [place], [address], [facility]. 4 11:43:13 Onychomycos is 738568549 Active 2023 toenails MD [address], [place], [address], [facility]. 4 11:47:27 Neuropathy due to diabetes mellitus 299763859 Active [address], [place], [address], [facility]. 4 16:23:51 Mixed anxiety and depressive disorder 534436722 Active [address], [place], [address], [facility] 4 16:27:39 Ambulatory continuous glucose monitoring of interstitia l tissue fluid Active [address], [place], [address], [facility] 4 23:10:45 Hearing loss 55694558 Active [address], [place], [address], [facility] 4 23:11:04 Notes:Some problems listed i n Document: #[id number] could not be added to this patient's [...] by oral route as needed. active Per [facility] d/c 06/21/24 Not Available Not [...] 12 hours by oral route. active Per [facility] d/c 06/21/24 Not Available Not [...] ONCE DAILY AT BEDTIME active Stopped per [facility] 06/21/24 and decrease d to [...] mL 4 completed MD [address], [place], [address], [facility] 08/30/2023 19:29:40 Tdap 4 completed MD [address], [place], [address], [facility] 12/01/2023 18:15:36 Influenza, high-dose, trivalent, PF 4 completed HANNAH DIMAS CMA null, [facility] 05/18/2024 11:35:26 COVID-19, mRNA, LNP-S, PF, jeferson-sucrose, 30 mcg/0.3 mL 4 completed HANNAH DIMAS CMA null, [facility] 05/18/2024 11:35:26 Pneumococcal conjugate PCV20, polysaccharide [id number] conjugate, adjuvant, PF 3 completed ANDRÉS DOYLE, [facility] 08/12/2023 15:42:12 influenza, unspecified formulation 3 completed ANDRÉS DOYLE, [facility] 08/26/2023 11:13:50 Past Encounters Encounter ID Performer Location Encounter Start Date Encounter Closed Date Diagnosis/Indication Diagnosis SNOMED-CT Code Diagnosis ICD10 Code Diagnosis Note [id number] HANNAH DIMAS CMA [address] [address] 05/18/2024 11:25:09 05/18/2024 11:36:19 Active or passive immunization [id number] Z23 Health Concerns Section Related Observation LastModified by Organization Detai ls LastModified Time None Recorded Concern Status LastModified by Organization Details LastModified Time None Recorded Payers Encounter Date Sequence Insurance Name Policy Number Policy Suazo Covered Member ID Suazo Member ID Guarantor Name 05/18/2024 1 [facility] (MEDICARE REPLACEMENT/A DVANTAGE - PPO) [id number] Arturo Mehta [id number] Arturo Mehta
--- OUTSIDE RECORDS SUMMARY | 2024-08-13 11:28 | XMS_ITS | Encounter Summary ---
Author Organization Formerly [facility] [place] [address] Care Team Providers Care Armhole Presser Name Role Phone Mauro Berumen MD Primary Care Provider Reason for Visit * Auth/Cert Specialty Diagnoses / Procedures Referred By Carroll lopez Referred To Contact Diagnoses STEMI (ST elevation myocardial infarction) STEMI Procedures CARDIAC CATHETERIZATION EMERGENCY Delroy Monterroso MD [facility] [place] [address] [facility] Referral ID Status Reason Start Date Expiration Date Visits Re quested Visits Authorized [id number] 1 1 Encounter Details Date Type Department Care Team (Late st Contact Info) Description 06/02/2024 11:00 PM EDT - 06/03/2024 12:18 AM EDT [place] [address] Nuha Shen MD [facility] [place] [address] CARDIAC CATHETERIZATION Social History Tobacco Use Types Packs/Day Years Used Date Smoking Tobacco: Every Day Cigarettes Smokeless Tobacco: Never Tobacco Cessation:Ready to Q uit: No; Counseling Given: Yes [facility] Utilities Answer Date Recorded In the past 12 months has [employer], gas, oil, or water [employer] threatened to shut off services in your [...] Patient Age: 69 y.o. Birthdate: 1955 Language: Tongan Race: Choose not to Disclose Ethnicity: Not nor Admit Date: 06/02/2024 Discharge Date: 06/21/2024 Attending Physician: Bobby Loja MD Follow-up Recommendations for Providers: Please continue routine management of cardiovascular risk factors including blood pressure, lipids,glucose, etc. Please note any changes to medications. Patient to follow up with PCP, Mauro Berumen MD, in 1-2 weeks. Patient to follow up with Manufacturing Automation Engineer, Kristen Cardenas in 2-3 weeks. Patient to follow up with Cardiac Surgeon, Dr. Bobby Loja, in 4 wks. Inpatient Provider Contact Information: [facility] Section of Cardiac Surgery [facility] [address] FAX [phone] Discharge Diagnoses (Hospital Problems) Primary Diagnoses: STEMI [...] GRAFT;SINGLE ARTERIAL GRAFT (WRVU 33.75) performed by Bboby Loja MD [facility] OR PRO CABG, ARTERY-VEIN, TWO N/A 06/14/2024 @CABG, TWO VENOUS GRAFTS & ARTERIAL GRAFT (WRVU 7.93) [facility] PRO ENDOSCOPY W/VIDEO-ASST VEIN HARVEST, CABG N/A 06/14/2024 ENDOSCOPIC HARVEST VEIN(S) FOR CABG (WRVU 0.31) performed by Bobby Loja MD at [facility] MAIN OR PRO EXC MEDIASTINAL TUMOR N/A 06/14/2024 @EXCISION OF MEDIASTINAL TUMOR (WRVU 19.55) performed by Bobby Loja MD at [facility] OR PRO INSERT INTRA-AORTIC BALLOON ASST DEVICE PERCUTANEOUS N/A 06/13/2024 @INSERTION OF IABP,PERCUTANEOUS (WRVU 4.84) performed by Nuha Shen MD at [facility] CATH LABS PRO UNLISTED CARDIAC SURG PROCEDURE N/A 06/14/2024 EXPLORATION AND OVERSEW ATRIAL APPENDAGE (WRVU 5.94) performed by Bobby Loja MD at [facility] [place] Prior To Admission Medications [...] y.o. male with a PMHx of previous DE s/p PCI x3, ICM/HFrEF (LVEF 30%) s/p ICD, DMII, HTN, HLD, remote melanoma, and smoker who presented to [facility] last night via EMS after developing acute, severe chest pain while watching TV. Patient was ruled in for STEMI, given TNK, ASA, plavix, heparin gtt, and sent to [facility] for coronary angiography. LHC demonstrated severely calcified left coronary system with notable LCx 75/80% lesions and FELT HAT FLANGING OPERATOR OM1 with ISR with collateral retrograde filling, [...] Course: George Mehta was admitted to [facility] 06[facility]02[facility]2024 via the CardiologyService with an anterior STEMI after receiving lytics at OSH. He was brought to the labor relations officer which showed severely calcified left coronary system with notable LCx 75/80% lesions and FELT HAT FLANGING OPERATOR OM1 with ISR with collateral retrograde filling, [...] juice or regular (not diet) soda 6 [employer] small box of raisins 4 glucose tablets [...] 2 tablespoons of dried fruit. Milk and ql-hqyge-woleq yogurt have 15 grams of carbs in a serving. A serving is 1 cup of milk or 3/4 cup (6 oz) of ab-kguxt-nusmk yogurt. Starchy vegetables have 15 grams of carbs in a serving. A serving is ?? cup of mashed potatoes or sweet potato; 1 cup winter squash; ?? of a small baked potato; ?? cup of cooked beans; or ?? cup cooked corn or green peas. Learn how much carbs to eat each day and at each meal. A dietitian or certified financial planner can teach you how to keep track [...] Bobby Loja and/or the Cardiac Surgery Physician Engineer [employer] Team may be reached at . Weight: [...] Dr. Bobby Loja. You may use a [place] Track or treadmill but avoid any pulling [...] friends, go to a movie, go to holiness, etc. Heavy activities: No hunting, skiing, jogging, snow shoveling, snowmobiling, lawn mowing, swimming,golf or tennis until after your return appointment with the surgeon. Do not ride motorcycles, ATDrybar'stractors or horses. Avoid the use of a [...] should resume a low fat, low cholesterol, [place] Heart Association Diet/Diabetic diet. Driving: No driving [...] while being managed by your PCP and/or Manufacturing Automation Engineer. For future medication refills, please refer to your PCP and/or Manufacturing Automation Engineer after your discharge from our service. Thank you REMOVE CHEST TUBE SUTURES ON OR AFTER 06/24/2024 Home oxygen therapy: N/A Follow up appointments: You should follow up with your PCP, Mauro Berumen MD, in 1-2 weeks. You should follow up with your Manufacturing Automation Engineer, Dr CARDENAS. You have an appointment with your Cardiac Surgeon, Dr. Bobby Loja, in 4 wks. Cardiac Rehabilitation: George Mehta was seen today regarding participation in the outpatient Phase 2 Cardiac Rehabilitation at [facility]. The patient agrees to a referral to this program. The referral will be sent at discharge and the patient should be contacted by the program within 1-2 weeks from discharge. Future Appointments and Orders Future Orders Complete By Expires Referral to Cardiac Rehab [CTX504 Custom] As directed Process Instructions: If no progress note charted, please enter Clinical details in comments. Scheduling Instructions: Questions: My question or request is: s/p CABG- cardiac rehab at [facility] Referral to Home Health [REF34 Custom] As directed Process Instructions: If no progress note charted, please enter Clinical details in comments. Scheduling Instructions: Comments: Please evaluate George Mehta for admission to Home Health. [address] [facility] [address] (home) Date of : 1955 Inpatient DOCUMENTATION FOR VNA SERVICES (INCLUDING THOSE PATIENTS WITH MEDICARE COVERAGE REQUIRINGHOME VNA SERVICES AND/OR HOSPICE SERVICES) PATIENT'S LOCATION: George Mehta [address] [place] [address] [facility] [address] (home) Telephone Information: Fish Hatchery Specialist's Name: self In discussion with the attending physician, it is certified that this patient is under their care and that they, or a Nurse Practitioner, or Physician Engineer [employer] who is working directly with them, hada [...] for services as follows: HOME HEALTH AGENCY: [facility] [address] [place] [phone] RN orders: Cardiopulmonary assessment, incisional assessment, assess [...] issues please call the Cardiology Office at [phone] FOR MEDICARE ONLY: (please delete this section [...] care: As above. Signed: KEILA HANLEY APRN [facility] Section of Cardiac Surgery [facility] [address] FAX [phone] Date: 06/21/2024 CC: MD Antonino Tinajero Joshua R, PA [address] [place] [address] [place] [address] documented in this encounter Discharge Instructions * [...] 2 tablespoons of dried fruit. Milk and mn-rquop-trcfd yogurt have 15 grams of carbs in a serving. A serving is 1 cup of milk or 3/4 cup (6 oz) of hm-wrwov-rpqtq yogurt. Starchy vegetables have 15 grams of carbs in a serving. A serving is ?? cup of mashed potatoes or sweet potato; 1 cup winter squash; ?? of a small baked potato; ?? cup of cooked beans; or ?? cup cooked corn or green peas. Learn how much carbs to eat each day and at each meal. A dietitian or certified financial planner can teach you how to keep track [...] Bobby Loja and/or the Cardiac Surgery Physician Engineer [employer] [place] Team may be reached at . Weight: [...] Dr. Bobby Loja. You may use a [place] Track or treadmill but avoid any pulling [...] friends, go to a movie, go to holiness, etc. Heavy activities: No hunting, skiing, jogging, snow shoveling, snowmobiling, lawn mowing, swimming,golf or tennis until after your return appointment with the surgeon. Do not ride motorcycles, ATDrybar'stractors or horses. Avoid the use of a [...] should resume a low fat, low cholesterol, [place] Heart Association Diet/Diabetic diet. Driving: No driving [...] while being managed by your PCP and/or Manufacturing Automation Engineer. For future medication refills, please refer to your PCP and/or Manufacturing Automation Engineer after your discharge from our service. Thank you REMOVE CHEST TUBE SUTURES ON OR AFTER 06/24/2024 Home oxygen therapy: N/A Follow up appointments: You should follow up with your PCP, Mauro Berumen MD, in 1-2 weeks. You should follow up with your Manufacturing Automation Engineer, Dr CARDENAS. You have an appointment with your Cardiac Surgeon, Dr. Bobby Loja, in 4 wks. Cardiac Rehabilitation: George Mehta was seen today regarding participation in the outpatient Phase 2 Cardiac Rehabilitation at [facility]. The patient agrees to a referral to [...] MARIALUISA clipping. PMH of chronic HFrEF s/p WOMEN'S LACROSSE COACH/ICD, IDDM2, HTN, HLD, remote melanoma, active smoker. [...] juice or regular (not diet) soda 6 [employer] small box of raisins 4 glucose tablets [...] 2 tablespoons of dried fruit. Milk and wq-ahnja-dfgin yogurt have 15 grams of carbs in a serving. A serving is 1 cup of milk or 3/4 cup (6 oz) of kq-panbc-pwkqw yogurt. Starchy vegetables have 15 grams of carbs in a serving. A serving is ?? cup of mashed potatoes or sweet potato; 1 cup winter squash; ?? of a small baked potato; ?? cup of cooked beans; or ?? cup cooked corn or green peas. Learn how much carbs to eat each day and at each meal. A dietitian or certified financial planner can teach you how to keep track [...] and peanut butter. Alejandra Baumann APRN [facility] Endocrinology Diabetes Management Pager [phone] Weekends please page [phone] * Eric Packer PA - 06/20/2024 7:44 AM EST Cardiac Surgery Progress Note George Mehta is a 69 y.o. male with a history of CAD s/p multiple PCI who presented with an anterior STEMI and was given lytics. Cath showed MV CAD without culprit vessel. He is now 6 Days Post-OpCABGx3 and MARIALUISA clipping. PMH of chronic HFrEF s/p WOMEN'S LACROSSE COACH/ICD, IDDM2, HTN, HLD, remote melanoma, active smoker. 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 06/20/2024 Between the hours of 1800 - 0600 and on the weekends please page [phone]. * Alejandra Baumann, JOSÉ ANTONIO - 06/20/2024 7:21 AM EST Follow Up Diabetes Consult Patient Interview Blood glucose values and insulin use reviewed. mattress inspector BG to 59 despite decrease in glargine [...] MARIALUISA clipping. PMH of chronic HFrEF s/p WOMEN'S LACROSSE COACH/ICD, IDDM2, HTN, HLD, remote melanoma, active smoker. mattress inspector BG to 59 despite decrease in glargine [...] on ISF 20 Alejandra Baumann APRN [facility] Endocrinology Diabetes Management Pager [phone] Weekends please page [phone] Insulin Discharge Instructions Preliminary Diabetes Discharge Instructions [...] 2 tablespoons of dried fruit. Milk and fh-jvfes-ekfrv yogurt have 15 grams of carbs in a serving. A serving is 1 cup of milk or 3/4 cup (6 oz) of md-dvcip-ryubh yogurt. Starchy vegetables have 15 grams of carbs in a serving. A serving is ?? cup of mashed potatoes or sweet potato; 1 cup winter squash; ?? of a small baked potato; ?? cup of cooked beans; or ?? cup cooked corn or green peas. Learn how much carbs to eat each day and at each meal. A dietitian or certified financial planner can teach you how to keep track [...] MARIALUISA clipping. PMH of chronic HFrEF s/p WOMEN'S LACROSSE COACH/ICD, IDDM2, HTN, HLD, remote melanoma, active smoker. 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 Jeffy Hood MD 06/19/2024 Between the hours of 1800 - 0600 and on the weekends please page [phone]. * Alejandra Baumann, GLASS CURVATURE GAUGER - 06/19/2024 7:09 AM EST Follow Up Diabetes Consult Patient Interview Blood glucose values and insulin use reviewed. Jardiance added back yesterday, television specialist low BGto 51. Glargine reduced to [...] MARIALUISA clipping. PMH of chronic HFrEF s/p WOMEN'S LACROSSE COACH/ICD, IDDM2, HTN, HLD, remote melanoma, active smoker. Jardiance added back yesterday. mattress inspector low BG to 51. Glargine reduced to [...] 2 tablespoons of dried fruit. Milk and za-icgcs-kwhih yogurt have 15 grams of carbs in a serving. A serving is 1 cup of milk or 3/4 cup (6 oz) of zq-onbmd-pzeew yogurt. Starchy vegetables have 15 grams of carbs in a serving. A serving is ?? cup of mashed potatoes or sweet potato; 1 cup winter squash; ?? of a small baked potato; ?? cup of cooked beans; or ?? cup cooked corn or green peas. Learn how much carbs to eat each day and at each meal. A dietitian or certified financial planner can teach you how to keep track [...] and peanut butter. Alejandra Baumann APRN [facility] Endocrinology Diabetes Management Pager [phone] Weekends please page [phone] EL * Hilda Resendez PTA - 06/18/2024 9:19 AM EST Physical Therapy Note 2 Patient profile: George Mehta is a 69 y.o. male with a history of CAD s/p multiple PCI who presented with an anterior STEMI and was given lytics. Cath showed MV CAD without culprit vessel. He is now 1 Day Post-Op CABGx3 and MARIALUISA clipping. PMH of chronic HFrEF s/p WOMEN'S LACROSSE COACH/ICD, IDDM2, HTN, HLD, remote melanoma, active smoker. Interval History: Per last cardiac surgery note on 06/18/2024 Cr improved 1.4 on lasix 40 iv bid -1.5L, made 2.5L urine Coreg, entresto restarted Floor status Social History: Pt lives with his in a 1 level apartment with no steps to enter. 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 He sleeps in a recliner at baseline. Precautions/Special Considerations: Sternal precautions, PIV, at risk to fall, PPM Mobility and Positioning Recommendations: Pt to utilize no AD, supervision for ambulation and transfers w/ medical staff assistant as able. Please encourage up [...] least restrictive device Time IN / OUT: 4464-4321 Total Time: 11 minutes; TEF 1 Hilda Resendez PTA Pager: [phone] Physical Therapy Inpatient Rehabilitation Department * Keila Hanley, GLASS CURVATURE GAUGER - 06/18/2024 8:48 AM EST Cardiac Surgery Progress Note George Mehta is a 69 y.o. male with a history of CAD s/p multiple PCI who presented with an anterior STEMI and was given lytics. Cath showed MV CAD without culprit vessel. He is now 4 Days Post-OpCABGx3 and MARIALUISA clipping. PMH of chronic HFrEF s/p WOMEN'S LACROSSE COACH/ICD, IDDM2, HTN, HLD, remote melanoma, active smoker. 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 Restarting jardiance #Active smoker Duoneb prn Dispo: CVCC, Full code, tx to floor Discussed with attending surgeon on rounds this morning. KEILA HANLEY, GLASS CURVATURE GAUGER 06/18/2024 Between the hours of 1800 - 0600 and on the weekends please page [phone]. * Alejandra Baumann, GLASS CURVATURE GAUGER - 06/17/2024 3:29 PM EST Follow Up [...] MARIALUISA clipping. PMH of chronic HFrEF s/p WOMEN'S LACROSSE COACH/ICD, IDDM2, HTN, HLD, remote melanoma, active smoker. [...] on ISF 20 Alejandra Baumann APRN [facility] Endocrinology Diabetes Management Pager [phone] Weekends please page [phone] 35 minutes were spent over the course [...] MARIALUISA clipping. PMH of chronic HFrEF s/p WOMEN'S LACROSSE COACH/ICD, IDDM2, HTN, HLD, remote melanoma, active smoker. [...] 0600 and on the weekends please page [phone]. * Raymond Carlton MD - 06/16/2024 1:11 PM EST CARDIAC CRITICAL CARE ATTENDING STAFF PROGRESS NOTE Patient seen and examined. George Mehta is a 69 y.o. male with: Active Hospital Problems Diagnosis STEMI (ST elevation myocardial infarction) Cardiac resynchronization therapy defibrillator (WOMEN'S LACROSSE COACH-D) - Medtronic Amplia Cardiomyopathy, ischemic Acute on chronic heart failure with reduced ejection fraction (HFrEF, <= 40%) Coronary artery disease involving [place] coronary artery of [place] heart without angina pectoris Type 2 diabetes [...] encouragement provided Patient screened for f/u and signwriter met pt at bedside. Pt states his [...] unless consulted in the interim. RICHA Simmons Hooker On * Octaviano Horvath PA - 06/16/2024 8:07 AM EST Cardiac Surgery Progress Note George Mehta is a 69 y.o. male with a history of CAD s/p multiple PCI who presented with an anterior STEMI and was given lytics. Cath showed MV CAD without culprit vessel. He is now 2 Days Post-OpCABGx3 and MARIALUISA clipping. PMH of chronic HFrEF s/p WOMEN'S LACROSSE COACH/ICD, IDDM2, HTN, HLD, remote melanoma, active smoker. [...] 0600 and on the weekends please page [phone]. * Jono Fernandez, PT - 06/15/2024 4:09 PM EST Physical Therapy Evaluation Patient profile: George Mehta is a 69 y.o. male with a history of CAD s/p multiple PCI who presented with an anterior STEMI and was given lytics. Cath showed MV CAD without culprit vessel. He is now 1 Day Post-Op CABGx3 and MARIALUISA clipping. PMH of chronic HFrEF s/p WOMEN'S LACROSSE COACH/ICD, IDDM2, HTN, HLD, remote melanoma, active smoker. 24h Events: From OR on Dobutamine IABP removed Bedrest ended ~2100, sedation weaned Extubated ~0200 Dobutamine weaned to 1 this morning, CI 2.6, shut off and repeat CI 2.4 Social History: Pt lives with his in a 1 level apartment with no steps to enter. 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 He sleeps [...] outlined inthis evaluation. JONO FERNANDEZ, PT Pager: [phone] Physical Therapy Inpatient Rehabilitation Department Time IN / OUT: 5370-8841 Total Time: 33 (eval) minutes * Alejandra Baumann APRN - 06/15/2024 11:39 AM EST Follow Up Diabetes Consult Patient Interview Blood glucose values and insulin use reviewed. Pt remains on an insulin drip today following [id number] MARIALUISA clipping. George continues to complain of [...] MARIALUISA clipping. PMH of chronic HFrEF s/p WOMEN'S LACROSSE COACH/ICD, IDDM2, HTN, HLD, remote melanoma, active smoker. [...] on ISF 20 Alejandra Baumann APRN [facility] Endocrinology Diabetes Management Pager [phone] Weekends please page [phone] 50 minutes were spent over the course [...] elevation myocardial infarction) Cardiac resynchronization therapy defibrillator (WOMEN'S LACROSSE COACH-D) - Medtronic Amplia Cardiomyopathy, ischemic Acute on chronic heart failure with reduced ejection fraction (HFrEF, <= 40%) Coronary artery disease involving [place] coronary artery of [place] heart without angina pectoris Type 2 diabetes [...] with h/o DM, CAD with prior PCI, WOMEN'S LACROSSE COACH-D who presented with crushing chest pain, found [...] MARIALUISA clipping. PMH of chronic HFrEF s/p WOMEN'S LACROSSE COACH/ICD, IDDM2, HTN, HLD, remote melanoma, active smoker. [...] 0600 and on the weekends please page [phone]. * Yoli Donaldson, [facility] - 06/15/2024 5:35 AM EST AMV Protocol: [...] with h/o DM, CAD with prior PCI, WOMEN'S LACROSSE COACH-D who presented with crushing chest pain, found [...] 1.5 PTT 31 T/L/D Barr ETT CVL [place] CT Pacing wires ASSESSMENT, MANAGEMENT, and DECISION MAKIN y.o. male with h/o DM, CAD with prior PCI, WOMEN'S LACROSSE COACH-D who presented with crushing chest pain, found [...] 0600 and on the weekends please page [phone]. * Chloé Cortez - 06/14/2024 9:36 AM [...] unless consulted in the interim. Chloé Cortez Compliance Administrator * Jim Benites MD - 06/13/2024 1:15 [...] - Mildly dilated left ventricle size with wzxptxqc-tw-qahpofci decreased LV systolic function. LV ejection fraction [...] ACS/crushing chest pain, likely due to lateral DE, found to have surgical CAD with viability [...] (abstinent since admission), ASCVD with multiple prior DE and PCIs, ICM/HFrEF LVEF 30% (all territories [...] elevation myocardial infarction) Cardiac resynchronization therapy defibrillator (WOMEN'S LACROSSE COACH-D) - Medtronic Amplia Cardiomyopathy, ischemic Acute on chronic heart failure with reduced ejection fraction (HFrEF, <= 40%) Coronary artery disease involving [place] coronary artery of [place] heart without angina pectoris Type 2 diabetes [...] . Cardiology Progress Note Patient info: Name: eGorge Mehta : 1955 PCP: Mauro Berumen MD PCP phone number: [phone] Date of Admission: 06/02/2024 ( Hospital Day 10 days ) Attending:Ethel Carrillo MD ID: 69 y.o. male with a h/o DM type 2, HTN, HLD, current smoker (2-3 cigarettes/day), HFrEF with anICD for low EF (~30%), and CAD with prior DE x3 with JENNA placed in [place], Melanoma, PAD, presented to [facility] with 1 hour of retrosternal CP (05/13) while watching TV, found to have STEMI. Active Problems: Active Hospital Problems Diagnosis STEMI (ST elevation myocardial infarction) Cardiac resynchronization therapy defibrillator (WOMEN'S LACROSSE COACH-D) - Medtronic Amplia Cardiomyopathy, ischemic Acute on chronic heart failure with reduced ejection fraction (HFrEF, <= 40%) Coronary artery disease involving [place] coronary artery of [place] heart without angina pectoris Type 2 diabetes [...] in the last 7068 hours. Invalid input(s): [id number] Recent Labs 06/12/24 0425 06/11/24 2356 06/11/24 2025 06/11/24 1624 06/11/24 1108 06/11/24 0748 06/11/24 0357 06/11/24 0050 06/10/24 1922 06/10/24 1735 06/10/24 1125 06/10/24 0746 POCGLU 132 135 210* 81 233* 184 132 144 236* 123 216* 206* Heme No results for input(s): LDH, HAPTOGLOBIN, URICACID in the last 168 hours. ABG (Arterial Blood Gas) No results found for: PHART, PO2ART, YJW7DUW, OVY5BSI Microbiology: Microbiology Results (Last 30 days) No results found for the last 720 hours. Imaging: Results for orders placed or performed during the hospital encounter of 06/02/24 XR Chest One View (Exam End: 06/03/2024 2:41 AM) Result Value WORKSTATION ID [id number] Impression No radiographically evident acute cardiopulmonary process. Thank you for letting us participate in the care of this patient. If you are a health care provider and have any questions regarding this report, please contact the number below. For patients who have questions please contact the health day care teacher that requested your imaging first. Cardiac Morphology Function wwo Contrast (Exam End: 06/07/2024 1:10 PM) Result Value WORKSTATION ID [id number] Impression - Findings consistent with an ischemic [...] - Mildly dilated left ventricle size with ohcxgtpa-yb-flnlrgvl decreased LV systolic function. LV ejection fraction [...] who have questions please contact the health day care teacher that requested your imaging first. Chest wo Contrast (Generic) (Exam End: 06/03/2024 4:33 PM) Result Value WORKSTATION ID [id number] Impression Cardiomegaly. Biventricular ICD leads in place. Thank you for letting us participate in the care of this patient. If you are a health care provider and have any questions regarding this report, please contact the number below. For patients who have questions please contact the health day care teacher that requested your imaging first. Chest PA & Lateral (Generic) (Exam End: 06/07/2024 7:03 AM) Result Value WORKSTATION ID [id number] Impression Biventricular ICD leads intact and in [...] who have questions please contact the health day care teacher that requested your imaging first. : Limited echo performed by fellow prison classification [...] ischemic cardiomyopathy with HFrEF (~30% EF), prior DE with stents, DM type 2, HTN, HLD, active smoker, presented with anterior STEMI. Angiography revealed severe multivessel CAD with extensive calcification and YUE 3 flow in all vessels, without a clear culprit lesion. Currently pain-free after TNK, Plavix, ASA, and heparin, with mildly elevated LVEDP at 40 mmHg and mild volume overload. 06/12/24: Patient stable, asymptomatic. Plan to go to labor relations officer for balloon pump tomorrow, then willgo to [facility] prior to CABG on Friday. #ASCVD / STEMI: -Holding Plavix; continue ASA and heparin gtt. -Monitor telmetry -TTE -Viability planning per CT surgery - CT chest (complete) - Carotid duplex bilat (complete) - Cardiac MR (scheduled today Thursday 06/07) - Will need balloon pump prior to CABG on Friday, likely Friday then transfer to [facility] #HFrEF (Ischemic Cardiomyopathy): -Monitor I&O and daily [...] CODE Dain Colón MD Cardiology, M1-S2, Pager #[phone] 06/12/24 Associated attestation - Ethel Carrillo MD [...] (abstinent since admission), ASCVD with multiple prior DE and PCIs, ICM/HFrEF LVEF 30% (all territories [...] of two midnights or is on the [facility] inpatient only procedure list (status C) due to: acute myocardial infarction requiring titration of IV medication and fluid monitoring and decompensated congestive heart failure requiring IV medication and fluid monitoring Ethel Carrillo MD Cardiovascular Medicine Personal Pager [phone] 06/12/2024 9:12 PM * Alejandra Baumann, GLASS CURVATURE GAUGER - 06/11/2024 4:21 PM EST Images from [...] too aggressive, suggest ICR 1:6 (rule of 224w960/81 = 6.25). George is up and walking [...] ischemic cardiomyopathy with HFrEF (~30% EF), prior DE with stents, DM type 2, HTN, HLD, [...] on placing this weekend and transfer to [facility], likely Friday. With lower BG following meal [...] metformin 1000mg BID Alejandra Baumann APRN [facility] Endocrinology Diabetes Management Pager [phone] Weekends please page [phone] 35 minutes were spent over the course [...] PCP: Mauro Berumen MD PCP phone number: [phone] Date of Admission: 06/02/2024 ( Hospital Day 9 days ) Attending:Melida Valdes MD ID: 69 y.o. male with a h/o DM type 2, HTN, HLD, current smoker (2-3 cigarettes/day), HFrEF with anICD for low EF (~30%), and CAD with prior DE x3 with JENNA placed in [place], Melanoma, PAD, presented to [facility] with 1 hour of retrosternal CP (05/13) while watching TV, found to have STEMI. Active Problems: Active Hospital Problems Diagnosis STEMI (ST elevation myocardial infarction) Cardiac resynchronization therapy defibrillator (WOMEN'S LACROSSE COACH-D) - Medtronic Amplia Cardiomyopathy, ischemic Acute on chronic heart failure with reduced ejection fraction (HFrEF, <= 40%) Coronary artery disease involving [place] coronary artery of [place] heart without angina pectoris Type 2 diabetes [...] in the last 7068 hours. Invalid input(s): [id number] Recent Labs 06/11/24 0357 06/11/24 0050 06/10/24 1922 06/10/24 1735 06/10/24 1125 06/10/24 0746 06/10/24 0423 06/10/24 0005 06/09/24 2036 06/09/24 1727 06/09/24 1152 06/09/24 0810 POCGLU 132 144 236* 123 216* 206* 154 125 197 174 211* 209* Heme No results for input(s): LDH, HAPTOGLOBIN, URICACID in the last 168 hours. ABG (Arterial Blood Gas) No results found for: PHART, PO2ART, NVB3DSS, REU6HKE Microbiology: Microbiology Results (Last 30 days) No results found for the last 720 hours. Imaging: Results for orders placed or performed during the hospital encounter of 06/02/24 XR Chest One View (Exam End: 06/03/2024 2:41 AM) Result Value WORKSTATION ID [id number] Impression No radiographically evident acute cardiopulmonary process. Thank you for letting us participate in the care of this patient. If you are a health care provider and have any questions regarding this report, please contact the number below. For patients who have questions please contact the health day care teacher that requested your imaging first. Cardiac Morphology Function wwo Contrast (Exam End: 06/07/2024 1:10 PM) Result Value WORKSTATION ID [id number] Impression - Findings consistent with an ischemic [...] - Mildly dilated left ventricle size with gxpcdnss-iq-daohhbtn decreased LV systolic function. LV ejection fraction [...] who have questions please contact the health day care teacher that requested your imaging first. Chest wo Contrast (Generic) (Exam End: 06/03/2024 4:33 PM) Result Value WORKSTATION ID [id number] Impression Cardiomegaly. Biventricular ICD leads in place. Thank you for letting us participate in the care of this patient. If you are a health care provider and have any questions regarding this report, please contact the number below. For patients who have questions please contact the health day care teacher that requested your imaging first. Chest PA & Lateral (Generic) (Exam End: 06/07/2024 7:03 AM) Result Value WORKSTATION ID [id number] Impression Biventricular ICD leads intact and in [...] who have questions please contact the health day care teacher that requested your imaging first. : Limited echo performed by fellow prison classification [...] Continuous Infusions: heparin (porcine) infusion 1,400 Units/hr (06/10/242) PRN Meds:.insulin lispro, glucose 40% oral geL [...] ischemic cardiomyopathy with HFrEF (~30% EF), prior DE with stents, DM type 2, HTN, HLD, [...] CODE Dain Colón MD Cardiology, M1-S2, Pager #[phone] 06/11/24 Associated attestation - Ethel Carrillo MD [...] (abstinent since admission), ASCVD with multiple prior DE and PCIs, ICM/HFrEF LVEF 30% (all territories [...] of two midnights or is on the [facility] inpatient only procedure list (status C) due to: acute myocardial infarction requiring titration of IV medication and fluid monitoring and decompensated congestive heart failure requiring IV medication and fluid monitoring Ethel Carrillo MD Cardiovascular Medicine Personal Pager [phone] 06/11/2024 9:35 PM * Hilary Belel - 06/10/2024 12:39 PM EST Nutrition Services Note George Mehta is a 69 y.o. male Reason for intervention: hospital day 9 Nutrition Plan: Continue diet order: 60/60/75 CHO Level 2 Encourage good PO Lasix and Insulin noted Monitor weight Patient scheduled for a hospital day 9 nutrition evaluation. Agricultural Service Worker attempted to meet with pt at bedside [...] unless consulted in the interim. Hilary Belle Hooker On * Mariia Montero RN - 06/10/2024 12:23 PM EST I have met with the patient to: discuss discharge planning needs. provide the [facility], Office of Care Management letter from the [employer] pertaining to rehab referrals. provide a letter describing our affiliations within the [facility] and educate about their right to choose where referrals are sent. provide a list of Home Health Agencies / Durable Medical Equipment vendors which serve their preferred geographic area. provided patient with [facility] Star Quality Rating handout. They have requested referrals to: [facility]. [address] [place] [address] RN / PT Anticipated d/c date: 06/20/24 Note routed to a Seasoning Sprayer who will communicate referrals to facilities and provide any required information. * Dain Colón MD - 06/10/2024 7:17 AM EST Images from the original note were not included. . Cardiology Progress Note Patient info: Name: George Mehta : 1955 PCP: Mauro Berumen MD PCP phone number: [phone] Date of Admission: 06/02/2024 ( Hospital Day 8 days ) Attending:Melida Valdes MD ID: 69 y.o. male with a h/o DM type 2, HTN, HLD, current smoker (2-3 cigarettes/day), HFrEF with anICD for low EF (~30%), and CAD with prior DE x3 with JENNA placed in [place], Melanoma, PAD, presented to [facility] with 1 hour of retrosternal CP (05/13) while watching TV, found to have STEMI. Active Problems: Active Hospital Problems Diagnosis STEMI (ST elevation myocardial infarction) Cardiac resynchronization therapy defibrillator (WOMEN'S LACROSSE COACH-D) - Medtronic Amplia Cardiomyopathy, ischemic Acute on chronic heart failure with reduced ejection fraction (HFrEF, <= 40%) Coronary artery disease involving [place] coronary artery of [place] heart without angina pectoris Type 2 diabetes [...] in the last 7068 hours. Invalid input(s): [id number] Recent Labs 06/10/24 0423 06/10/24 0005 06/09/24 2036 06/09/24 1727 06/09/24 1152 06/09/24 0810 06/09/24 0440 06/09/24 0034 06/08/24 2027 06/08/24 1616 06/08/24 1235 06/08/24 0810 POCGLU 154 125 197 174 211* 209* 131 186 176 159 226* 190 Heme No results for input(s): LDH, HAPTOGLOBIN, URICACID in the last 168 hours. ABG (Arterial Blood Gas) No results found for: PHART, PO2ART, AWX8LVD, XWA5FHM Microbiology: Microbiology Results (Last 30 days) No results found for the last 720 hours. Imaging: Results for orders placed or performed during the hospital encounter of 06/02/24 XR Chest One View (Exam End: 06/03/2024 2:41 AM) Result Value WORKSTATION ID [id number] Impression No radiographically evident acute cardiopulmonary process. Thank you for letting us participate in the care of this patient. If you are a health care provider and have any questions regarding this report, please contact the number below. For patients who have questions please contact the health day care teacher that requested your imaging first. Cardiac Morphology Function wwo Contrast (Exam End: 06/07/2024 1:10 PM) Result Value WORKSTATION ID [id number] Impression - Findings consistent with an ischemic [...] - Mildly dilated left ventricle size with gswuwhrz-al-bswaoazc decreased LV systolic function. LV ejection fraction [...] who have questions please contact the health day care teacher that requested your imaging first. Chest wo Contrast (Generic) (Exam End: 06/03/2024 4:33 PM) Result Value WORKSTATION ID [id number] Impression Cardiomegaly. Biventricular ICD leads in place. Thank you for letting us participate in the care of this patient. If you are a health care provider and have any questions regarding this report, please contact the number below. For patients who have questions please contact the health day care teacher that requested your imaging first. Chest PA & Lateral (Generic) (Exam End: 06/07/2024 7:03 AM) Result Value WORKSTATION ID [id number] Impression Biventricular ICD leads intact and in [...] who have questions please contact the health day care teacher that requested your imaging first. : Limited echo performed by fellow prison classification [...] ischemic cardiomyopathy with HFrEF (~30% EF), prior DE with stents, DM type 2, HTN, HLD, [...] plan on placing this and transfer to [facility], likely Friday. #ASCVD / STEMI: -Holding Plavix; [...] CODE Dain Colón MD Cardiology, M1-S2, Pager #[phone] 06/10/24 Associated attestation - Melida Valdes MD [...] a lytic and brought directly to the [facility] [employer] [employer]. Cardiac catheterization demonstrated multivessel disease with severe [...] who is agreeable Melida Valdes MD Staff Manufacturing Automation Engineer * Cherelle Fregoso, JOSÉ ANTONIO - 06/09/2024 [...] ischemic cardiomyopathy with HFrEF (~30% EF), prior DE with stents, DM type 2, HTN, HLD, [...] PCP: Mauro Berumen MD PCP phone number: [phone] Date of Admission: 06/02/2024 ( Hospital Day 7 days ) Attending:Melida Valdes MD ID: 69 y.o. male with a h/o DM type 2, HTN, HLD, current smoker (2-3 cigarettes/day), HFrEF with anICD for low EF (~30%), and CAD with prior DE x3 with JENNA placed in [place], Melanoma, PAD, presented to [facility] with 1 hour of retrosternal CP (05/13) while watching TV, found to have STEMI. Active Problems: Active Hospital Problems Diagnosis STEMI (ST elevation myocardial infarction) Acute on chronic heart failure with reduced ejection fraction (HFrEF, <= 40%) Coronary artery disease involving [place] coronary artery of [place] heart without angina pectoris Type 2 diabetes [...] in the last 7068 hours. Invalid input(s): [id number] Recent Labs 06/09/24 0440 06/09/24 0034 06/08/24 2027 06/08/24 1616 06/08/24 1235 06/08/24 0810 06/08/24 0409 06/07/24 2357 06/07/24 2005 06/07/24 1631 06/07/24 1105 06/07/24 1103 POCGLU 131 186 176 159 226* 190 151 188 118 174 221* 250* Heme No results for input(s): LDH, HAPTOGLOBIN, URICACID in the last 168 hours. ABG (Arterial Blood Gas) No results found for: PHART, PO2ART, ANN9OXX, SOI9PYS Microbiology: Microbiology Results (Last 30 days) No results found for the last 720 hours. Imaging: Results for orders placed or performed during the hospital encounter of 06/02/24 XR Chest One View (Exam End: 06/03/2024 2:41 AM) Result Value WORKSTATION ID [id number] Impression No radiographically evident acute cardiopulmonary process. Thank you for letting us participate in the care of this patient. If you are a health care provider and have any questions regarding this report, please contact the number below. For patients who have questions please contact the health day care teacher that requested your imaging first. Cardiac Morphology Function wwo Contrast (Exam End: 06/07/2024 1:10 PM) Result Value WORKSTATION ID [id number] Impression - Findings consistent with an ischemic [...] - Mildly dilated left ventricle size with tscagudw-gn-jncntwtr decreased LV systolic function. LV ejection fraction [...] who have questions please contact the health day care teacher that requested your imaging first. Chest wo Contrast (Generic) (Exam End: 06/03/2024 4:33 PM) Result Value WORKSTATION ID [id number] Impression Cardiomegaly. Biventricular ICD leads in place. Thank you for letting us participate in the care of this patient. If you are a health care provider and have any questions regarding this report, please contact the number below. For patients who have questions please contact the health day care teacher that requested your imaging first. Chest PA & Lateral (Generic) (Exam End: 06/07/2024 7:03 AM) Result Value WORKSTATION ID [id number] Impression Biventricular ICD leads intact and in [...] who have questions please contact the health day care teacher that requested your imaging first. : Limited echo performed by fellow prison classification [...] Infusions: heparin (porcine) infusion 1,400 Units/hr (06/08/24 7980) PRN Meds:.glucose 40% oral geL OR dextrose [...] ischemic cardiomyopathy with HFrEF (~30% EF), prior DE with stents, DM type 2, HTN, HLD, [...] CODE Dain Colón MD Cardiology, M1-S2, Pager #[phone] 06/09/24 Associated attestation - Melida Valdes MD [...] a lytic and brought directly to the [facility] [employer] [employer]. Cardiac catheterization demonstrated multivessel disease with severe [...] ven low EF. Melida Valdes MD Staff Manufacturing Automation Engineer * Alejandra Baumann, GLASS CURVATURE GAUGER - 06/08/2024 4:10 PM EST Images from [...] ischemic cardiomyopathy with HFrEF (~30% EF), prior DE with stents, DM type 2, HTN, HLD, [...] optimize glucose control Alejandra Baumann APRN [facility] Endocrinology Diabetes Management Pager [phone] Weekends please page [phone] 35 minutes were spent over the course [...] PCP: Mauro Berumen MD PCP phone number: [phone] Date of Admission: 06/02/2024 ( Hospital Day 6 days ) Attending:Melida Valdes MD ID: 69 y.o. male with a h/o DM type 2, HTN, HLD, current smoker (2-3 cigarettes/day), HFrEF with anICD for low EF (~30%), and CAD with prior DE x3 with JENNA placed in [place], Melanoma, PAD, presented to [facility] with 1 hour of retrosternal CP (05/13) while watching TV, found to have STEMI. Active Problems: Active Hospital Problems Diagnosis STEMI (ST elevation myocardial infarction) Acute on chronic heart failure with reduced ejection fraction (HFrEF, <= 40%) Coronary artery disease involving [place] coronary artery of [place] heart without angina pectoris Type 2 diabetes [...] in the last 7068 hours. Invalid input(s): [id number] Recent Labs 06/08/24 0409 06/07/24 2357 06/07/24200406/07/24 1631 06/07/24 1105 06/07/24 1103 06/07/24 0745 06/07/24 0425 06/07/24 0008 06/06/24201706/06/24 1539 06/06/24 1339 POCGLU 151 188 118 174 221* 250* 175 127 182 143 147 317* Heme No results for input(s): LDH, HAPTOGLOBIN, URICACID in the last 168 hours. ABG (Arterial Blood Gas) No results found for: PHART, PO2ART, REK7GSV, CVF0AQF Microbiology: Microbiology Results (Last 30 days) No results found for the last 720 hours. Imaging: Results for orders placed or performed during the hospital encounter of 06/02/24 XR Chest One View (Exam End: 06/03/2024 2:41 AM) Result Value WORKSTATION ID [id number] Impression No radiographically evident acute cardiopulmonary process. Thank you for letting us participate in the care of this patient. If you are a health care provider and have any questions regarding this report, please contact the number below. For patients who have questions please contact the health day care teacher that requested your imaging first. Cardiac Morphology Function wwo Contrast (Exam End: 06/07/2024 1:10 PM) Result Value WORKSTATION ID [id number] Impression - Findings consistent with an ischemic [...] - Mildly dilated left ventricle size with phkfrofu-oz-hospiabw decreased LV systolic function. LV ejection fraction [...] who have questions please contact the health day care teacher that requested your imaging first. Chest wo Contrast (Generic) (Exam End: 06/03/2024 4:33 PM) Result Value WORKSTATION ID [id number] Impression Cardiomegaly. Biventricular ICD leads in place. Thank you for letting us participate in the care of this patient. If you are a health care provider and have any questions regarding this report, please contact the number below. For patients who have questions please contact the health day care teacher that requested your imaging first. Chest PA & Lateral (Generic) (Exam End: 06/07/2024 7:03 AM) Result Value WORKSTATION ID [id number] Impression Biventricular ICD leads intact and in [...] who have questions please contact the health day care teacher that requested your imaging first. : Limited echo performed by fellow prison classification [...] ischemic cardiomyopathy with HFrEF (~30% EF), prior DE with stents, DM type 2, HTN, HLD, [...] days: 5 Code status: FULL CODE Dain Coóln MD Cardiology, M1-S2, Pager #[phone] 06/08/24 Associated attestation - Melida Valdes MD [...] a lytic and brought directly to the [facility] [employer] [employer]. Cardiac catheterization demonstrated multivessel disease with severe [...] Otherwise clinically stable Melida Valdes MD Staff Manufacturing Automation Engineer * Ross Manuel PA - 06/07/2024 12:00 PM EST Cardiac Electrophysiology CIED Interrogation/Programming Note Asked by MRI staff to evaluate and program Medtronic WOMEN'S LACROSSE COACH-D to allow for MR imaging. Patient Active Problem List Diagnosis ','STEMI (ST elevation myocardial infarction) Acute on chronic heart failure with reduced ejection fraction (HFrEF, <= 40%) Coronary artery disease involving [place] coronary artery of [place] heart without angina pectoris Type 2 diabetes mellitus Device Data: Medtronic Amplia MRI Quad WOMEN'S LACROSSE COACH-D [id number] #[id number] 06/16/2019 RA Medtronic 4076 CapSureFix Novus [id number] 06/16/2019 RV Medtronic 6935M [id number] 06/16/2019 LV Medtronic 4298 Attain Performa MRI [id number] 06/16/2019 DDD @ 50/130/130 Adaptive Bi-V and LV VF >188bpm ATP, 35j x6 FVT >188-222bpm burst 2, 35jx5 VT Battery longevity: 2.5yrs; charge time 4s P wave: 2.3mV R wave: >20.0mV Atrial impedance: 458 ohms RV impedance: 646 ohms LV impedance: 722 ohms Atrial threshold: 0.5V @ 0.4ms RV threshold: LV threshold: 1.75V @ 0.4ms AP 0.2% RESTAURANT SERVICE MANAGER 97.7% AT/AF 0% Impression and Plan: 1. Interrogated device to determine suitability for MRI 2. Programmed to MRI safe mode - VOO @ 70 3. Scan performed 4. Programming restored to baseline settings 5. Reinterrogated to verify appropriate function and settings 6. Device follow up as previously scheduled Provider: HENOK Meyer EP Consult attending physician: Libby Barton MD EP Consult positional pager #[phone](EPMD) EP Device interrogation positional pager # [phone] * Dain Colón MD - 06/07/2024 7:09 AM EST Images from the original note were not included. . Cardiology Progress Note Patient info: Name: George Mehta : 1955 PCP: Mauro Berumen MD PCP phone number: [phone] Date of Admission: 06/02/2024 ( Hospital Day 5 days ) Attending:Melida Valdes MD ID: 69 y.o. male with a h/o DM type 2, HTN, HLD, current smoker (2-3 cigarettes/day), HFrEF with anICD for low EF (~30%), and CAD with prior DE x3 with JENNA placed in [place], Melanoma, PAD, presented to [facility] with 1 hour of retrosternal CP (05/13) while watching TV, found to have STEMI. Active Problems: Active Hospital Problems Diagnosis STEMI (ST elevation myocardial infarction) Acute on chronic heart failure with reduced ejection fraction (HFrEF, <= 40%) Coronary artery disease involving [place] coronary artery of [place] heart without angina pectoris Type 2 diabetes [...] in the last 7068 hours. Invalid input(s): [id number] Recent Labs 06/07/24 0425 06/07/24 0008 06/06/24 2018 06/06/24 1539 06/06/24 1339 06/06/24 1134 06/06/24 0757 06/06/24 0653 06/05/24 2231 06/05/24 1622 06/05/24 1134 06/05/24 0727 POCGLU 127 182 143 147 317* 264* 195 187 238* 205* 211* 166 Heme No results for input(s): LDH, HAPTOGLOBIN, URICACID in the last 168 hours. ABG (Arterial Blood Gas) No results found for: PHART, PO2ART, BKU0FGP, WTV2CVB Microbiology: Microbiology Results (Last 30 days) No results found for the last 720 hours. Imaging: Results for orders placed or performed during the hospital encounter of 06/02/24 XR Chest One View (Exam End: 06/03/2024 2:41 AM) Result Value WORKSTATION ID [id number] Impression No radiographically evident acute cardiopulmonary process. Thank you for letting us participate in the care of this patient. If you are a health care provider and have any questions regarding this report, please contact the number below. For patients who have questions please contact the health day care teacher that requested your imaging first. Chest wo Contrast (Generic) (Exam End: 06/03/2024 4:33 PM) Result Value WORKSTATION ID [id number] Impression Cardiomegaly. Biventricular ICD leads in place. Thank you for letting us participate in the care of this patient. If you are a health care provider and have any questions regarding this report, please contact the number below. For patients who have questions please contact the health day care teacher that requested your imaging first. : Limited echo performed by fellow prison classification [...] ischemic cardiomyopathy with HFrEF (~30% EF), prior DE with stents, DM type 2, HTN, HLD, [...] Dain Colón MD (PGY-1) Cardiology, M1-S2, Pager #[phone] 06/07/24 Associated attestation - Melida Valdes MD [...] a lytic and brought directly to the [employer]. Cardiac catheterization demonstrated multivessel disease with severe [...] for further guidance. Melida Valdes MD Staff Manufacturing Automation Engineer * Dain Colón MD - 06/06/2024 7:17 AM EST Images from the original note were not included. . Cardiology Progress Note Patient info: Name: George Mehta : 1955 PCP: Mauro Berumen MD PCP phone number: [phone] Date of Admission: 06/02/2024 ( Hospital Day 4 days ) Attending:Melida Valdes MD ID: 69 y.o. male with a h/o DM type 2, HTN, HLD, current smoker (2-3 cigarettes/day), HFrEF with anICD for low EF (~30%), and CAD with prior DE x3 with JENNA placed in [place], Melanoma, PAD, presented to [facility] with 1 hour of retrosternal CP (05/13) while watching TV, found to have STEMI. Active Problems: Active Hospital Problems Diagnosis STEMI (ST elevation myocardial infarction) Acute on chronic heart failure with reduced ejection fraction (HFrEF, <= 40%) Coronary artery disease involving [place] coronary artery of [place] heart without angina pectoris Type 2 diabetes [...] in the last 7068 hours. Invalid input(s): [id number] Recent Labs 06/06/24 0653 06/05/24 2231 06/05/24 1622 06/05/24 1134 06/05/24 0727 06/04/24 1943 06/04/24 1526 06/04/24 1109 06/04/24 0711 06/03/24 2005 06/03/24 1748 06/03/24 1114 POCGLU 187 238* 205* 211* 166 175 154 188 182 136 191 166 Heme No results for input(s): LDH, HAPTOGLOBIN, URICACID in the last 168 hours. ABG (Arterial Blood Gas) No results found for: PHART, PO2ART, ZVM4EWE, OGR7COA Microbiology: Microbiology Results (Last 30 days) No results found for the last 720 hours. Imaging: Results for orders placed or performed during the hospital encounter of 06/02/24 XR Chest One View (Exam End: 06/03/2024 2:41 AM) Result Value WORKSTATION ID [id number] Impression No radiographically evident acute cardiopulmonary process. Thank you for letting us participate in the care of this patient. If you are a health care provider and have any questions regarding this report, please contact the number below. For patients who have questions please contact the health day care teacher that requested your imaging first. Chest wo Contrast (Generic) (Exam End: 06/03/2024 4:33 PM) Result Value WORKSTATION ID [id number] Impression Cardiomegaly. Biventricular ICD leads in place. Thank you for letting us participate in the care of this patient. If you are a health care provider and have any questions regarding this report, please contact the number below. For patients who have questions please contact the health day care teacher that requested your imaging first. : Limited echo performed by fellow prison classification [...] ischemic cardiomyopathy with HFrEF (~30% EF), prior DE with stents, DM type 2, HTN, HLD, [...] Dain Colón MD (PGY-1) Cardiology, M1-S2, Pager #[phone] 06/06/24 Associated attestation - Melida Valdes MD [...] a lytic and brought directly to the [employer]. Cardiac catheterization demonstrated multivessel disease with severe [...] management. Help appreciated Melida Valdes MD Staff Manufacturing Automation Engineer * Frederick Dunn MD - 06/05/2024 8:13 AM EDT Images from the original note were not included. . Cardiology Progress Note Patient info: Name: George Mehta : 1955 PCP: Mauro Berumen MD PCP phone number: [phone] Date of Admission: 06/02/2024 ( Hospital Day 3 days ) Attending:Melida Valdes MD ID: 69 y.o. male with a h/o DM type 2, HTN, HLD, current smoker (2-3 cigarettes/day), HFrEF with anICD for low EF (~30%), and CAD with prior DE x3 with JENNA placed in [place], Melanoma, PAD, presented to [facility] with 1 hour of retrosternal CP (05/13) [...] in the last 7068 hours. Invalid input(s): [id number] Recent Labs 06/05/24 1134 06/05/24 0727 06/04/24 1943 06/04/24 1526 06/04/24 1109 06/04/24 0711 06/03/24 2005 06/03/24 1748 06/03/24 1114 06/03/24 0754 06/02/24 2331 POCGLU 211* 166 175 154 188 182 136 191 166 195 156 Heme No results for input(s): LDH, HAPTOGLOBIN, URICACID in the last 168 hours. ABG (Arterial Blood Gas) No results found for: PHART, PO2ART, IIN0PJK, PXE3LLR Microbiology: Microbiology Results (Last 30 days) No results found for the last 720 hours. Imaging: Results for orders placed or performed during the hospital encounter of 06/02/24 XR Chest One View (Exam End: 06/03/2024 2:41 AM) Result Value WORKSTATION ID [id number] Impression No radiographically evident acute cardiopulmonary process. Thank you for letting us participate in the care of this patient. If you are a health care provider and have any questions regarding this report, please contact the number below. For patients who have questions please contact the health day care teacher that requested your imaging first. Chest wo Contrast (Generic) (Exam End: 06/03/2024 4:33 PM) Result Value WORKSTATION ID [id number] Impression Cardiomegaly. Biventricular ICD leads in place. Thank you for letting us participate in the care of this patient. If you are a health care provider and have any questions regarding this report, please contact the number below. For patients who have questions please contact the health day care teacher that requested your imaging first. : Limited echo performed by fellow prison classification [...] ischemic cardiomyopathy with HFrEF (~30% EF), prior DE with stents, DM type 2, HTN, HLD, [...] all the information they need regarding the WOMEN'S LACROSSE COACH-D.Plan for MRI tomorrow. Starting 40 mg IV [...] a lytic and brought directly to the [employer]. Cardiac catheterization demonstrated multivessel disease with severe [...] maintenance of 40. Melida Valdes MD Staff Manufacturing Automation Engineer * Migel Javier RN - 06/05/2024 6:21 AM EDT Implanted device record scanned into: Chart Review-->Media-->External Cardiology-->03/25/2024. Medtronic Amplia MRI Quad CRTD [id number] Serial #: [id number] DDD mode A + Bi/V Rates 50-130 Migel Javier RN * Dain Cloón MD - 06/04/2024 11:16 AM EDT Implant Records Requested Type: WOMEN'S LACROSSE COACH-D Feller Machine Operator: Medtronic Product: [id number] Amplia MRI MRI compatibility: Compatible for 1.5-3 T Model #: [id number] Placed at: [place], [place] Records requested for MRI: 1. Operative report 2. Implant log I requested that these records be sent to our MRI department, Dain Colón MD 06/04/24 11:58 AM * Dain Colón MD - 06/04/2024 6:57 AM EDT Images from the original note were not included. . Cardiology Progress Note Patient info: Name: George Mehta : 1955 PCP: Mauro Berumen MD PCP phone number: [phone] Date of Admission: 06/02/2024 ( Hospital Day 2 days ) Attending:Delroy Fofana MD ID: 69 y.o. male with a h/o DM type 2, HTN, HLD, current smoker (2-3 cigarettes/day), HFrEF with anICD for low EF (~30%), and CAD with prior DE x3 with JENNA placed in [place], Melanoma, PAD, presented to [facility] with 1 hour of retrosternal CP (05/13) [...] in the last 7068 hours. Invalid input(s): GYMMGRSCBUO3S Recent Labs 06/03/24 2005 06/03/24 1748 06/03/24 1114 06/03/24 0754 06/02/24 2331 POCGLU 136 191 166 195 156 Heme No results for input(s): LDH, HAPTOGLOBIN, URICACID in the last 168 hours. ABG (Arterial Blood Gas) No results found for: PHART, PO2ART, ODD4NYG, QDT3WCH Microbiology: Microbiology Results (Last 30 days) No results found for the last 720 hours. Imaging: Results for orders placed or performed during the hospital encounter of 06/02/24 XR Chest One View (Exam End: 06/03/2024 2:41 AM) Result Value WORKSTATION ID [id number] Impression No radiographically evident acute cardiopulmonary process. Thank you for letting us participate in the care of this patient. If you are a health care provider and have any questions regarding this report, please contact the number below. For patients who have questions please contact the health day care teacher that requested your imaging first. Chest wo Contrast (Generic) (Exam End: 06/03/2024 4:33 PM) Result Value WORKSTATION ID [id number] Impression Cardiomegaly. Biventricular ICD leads in place. Thank you for letting us participate in the care of this patient. If you are a health care provider and have any questions regarding this report, please contact the number below. For patients who have questions please contact the health day care teacher that requested your imaging first. : Limited echo performed by fellow prison classification [...] ischemic cardiomyopathy with HFrEF (~30% EF), prior DE with stents, DM type 2, HTN, HLD, [...] 40 mg IV given in the labor relations officer; assess diuretic response, consider re-dosing -Continue carvedilol; [...] a lytic and brought directly to the [employer]. Cardiac catheterization demonstrated multivessel disease with severe [...] Friday -Diuresis with Jovanni Valdes MD Staff Manufacturing Automation Engineer * Fatmata Mcallister, PT - 06/03/2024 3:29 PM EDT Physical Therapy 06/03/24 1527 Evaluation & Treatment Document Type contact Total Minutes, Physical Therapy 0 Comment, Session Not Performed PT consult received/hx/current status reviewed. w/u ongoing following STEMI, intenventional plan TBD. Pt is independently mobile at present, will defer imminent asesssment and f.u as appropriate when POC determined (CABG vs PCI) Fatmata cMallister PT, MSPT Pager [phone] Inpatient Physical Therapy * Marlin Gómez MD [...] Marlin Gómez MD Cardiology S2, Pager # [phone] 06/03/2024 * Delroy Fofana MD - 06/03/2024 7:16 AM EDT Images from the original note were not included. . Cardiology Progress Note Patient info: Name: George Mehta : 1955 PCP: Mauro Berumen MD PCP phone number: [phone] Date of Admission: 06/02/2024 ( Hospital Day 1 day ) Attending:Nuha Rojo MD ID: 69 y.o. male with a h/o DM type 2, HTN, HLD, current smoker (2-3 cigarettes/day), HFrEF with anICD for low EF (~30%), and CAD with prior DE x3 with JENNA placed in [place], Melanoma, PAD, presented to [facility] with 1 hour of retrosternal CP (05/13) [...] in the last 7068 hours. Invalid input(s): [id number] Recent Labs 06/02/24 2331 POCGLU 156 Heme No results for input(s): LDH, HAPTOGLOBIN, URICACID in the last 168 hours. ABG (Arterial Blood Gas) No results found for: PHART, PO2ART, HOO5VCE, WEA5DLQ Microbiology: Microbiology Results (Last 30 days) No results found for the last 720 hours. Imaging: Results for orders placed or performed during the hospital encounter of 06/02/24 XR Chest One View (Exam End: 06/03/2024 2:41 AM) Result Value WORKSTATION ID [id number] Impression No radiographically evident acute cardiopulmonary process. Thank you for letting us participate in the care of this patient. If you are a health care provider and have any questions regarding this report, please contact the number below. For patients who have questions please contact the health day care teacher that requested your imaging first. : Limited echo performed by fellow prison classification [...] ischemic cardiomyopathy with HFrEF (~30% EF), prior DE with stents, DM type 2, HTN, HLD, [...] 40 mg IV given in the labor relations officer; assess diuretic response, consider re-dosing -Continue carvedilol; [...] of care per Dain Colón MD (medical insurance claims processor). Please refer to his note above for details. Very pleasant 69 year old male but he is obese, diabetic, and he is a SMOKER with known prior CAD and moderately reduced LVEF (30%). He has a pacer. History of surgical resection of melanoma on his head. The patient was transferred overnight to [facility] as a STEMI. He was treated initially with a lytic (TNK) and brought directly to the labor relations officer. The cath demonstrated 3VD with diffuse disease [...] - 06/13/2024 10:58 AM EST ICU Blue (#2511) H&P Patient info: Name: George Mehta : 1955 PCP: Mauro Berumen MD PCP phone number: [phone] Date of Admission: 06/02/2024 ( Hospital Day 11 days ) Attending:Haja Byrnes MD ID: George Mehta is a 69 y.o. male with a h/o DM type 2, HTN, HLD, current smoker (2-3 cigarettes/day), HFrEF with an ICD for low EF (~30%), and CAD with prior DE x3 with JENNA placed in [place], Melanoma, PAD, presented to [facility] with 1 hour of retrosternal CP (10/10) while watching TV, foundto have STEMI. HPI: Shahnaz Scanlon H&P 06/02 69 y.o. male with a h/o DM type 2, HTN, HLD, current smoker (2-3 cigarettes/day), HFrEF with an ICD for low EF (~30%), and CAD with prior DE x3 with JENNA placed in [place], Melanoma, PAD, presented to [facility] with 1 hour of retrosternal CP (05/13) while watching TV. CP was non-radiating, not asso ciated with diaphoresis, nausea, or SOB. Denies orthopnea, MARTÍNEZ, palpitations, or LE edema. ECG showed findings consistent with anterior STEMI. He received TNK and was transferred for PCI. Coronary angiography showed a small, non-dominant RCA with tjpl-pg-cuysyxlj disease and a dominant,heavily calcified left system with prior stents in the LAD and OM. The LM bifurcates into the LAD and LCX, both heavily calcified. The proximal LCX has a 75% calcified, aneurysmal lesion, and an 80% calcified lesion distally before a large OM2. OM1 is a FELT HAT FLANGING OPERATOR with in-stent restenosis, filling retrograde via collaterals. [...] mg Lasix was administered in the labor relations officer. Cardiac surgery was consulted and plan for [...] Blood Gas) No results for input(s): PHART, JTM8KUS, PO2ART, YFK2HYT, LACTATEVEN, LGA7XJL, PFRATIOART2 in the last 168 hours. VBG (Venous Blood Gas) Recent Labs 06/10/24 1742 PHVEN 7.34 PO2VEN 24 ABE2LFL 27.4 Mixed Venous Sat No results for input(s): I8VQYR1 in the last 168 hours. Intake/Output Summary [...] in the last 7067 hours. Invalid input(s): QUPAWJHUWVG9K Recent Labs 06/13/24 0741 06/13/24 0325 06/12/24 2353 06/12/24 1932 06/12/24 1541 06/12/24 1121 06/12/24 0800 06/12/24 0425 06/11/24 2356 06/11/24 2025 06/11/24 1624 06/11/24 1108 POCGLU 126 99 141 158 113 207* 169 132 135 210* 81 233* Heme No results for input(s): LDH, HAPTOGLOBIN, URICACID in the last 168 hours. ABG (Arterial Blood Gas) No results for input(s): PHART, FVR7KZT, PO2ART, YKC1RKX, LACTATEVEN, TXZ7OQL, PFRATIOART2 in the last 168 hours. VBG (Venous Blood Gas) Recent Labs 06/10/24 1742 PHVEN 7.34 PO2VEN 24 STG8UAC 27.4 Mixed Venous Sat No results for input(s): L1GKRC3 in the last 168 hours. Microbiology: Microbiology Results (Last 30 days) No results found for the last 720 hours. Assessment & Plan: George Mehta is a 69 y.o. male with CAD, ischemic cardiomyopathy with HFrEF (~30% EF), prior DE with stents, DM type 2, HTN, HLD, [...] Meds) Daily Healthy Menu Choices/Cardiac diet ([facility]-Diet) DVT Prophylaxis: [...] TUD (abstinent since admission), ASCVD with multipleprior DE and PCIs, ICM/HFrEF LVEF 30% (all territories [...] is in the chart Rebeca Prado MD General Lot Attendant PGY6 [id number] * Shahnaz Scanlon MD - [...] low EF (~30%), and CAD with prior DE x3 with JENNA placed in [place], Melanoma, PAD, presented to [facility] with 1 hour of retrosternal CP (05/13) while watching TV. CP was non-radiating, not assoc iated with diaphoresis, nausea, or SOB. Denies orthopnea, MARTÍNEZ, palpitations, or LE edema. ECG showed findings consistent with anterior STEMI. He received TNK and was transferred for PCI. Coronary angiography showed a small, non-dominant RCA with wptc-ni-xhsyxcwf disease and a dominant,heavily calcified left system with prior stents in the LAD and OM. The LM bifurcates into the LAD and LCX, both heavily calcified. The proximal LCX has a 75% calcified, aneurysmal lesion, and an 80% calcified lesion distally before a large OM2. OM1 is a FELT HAT FLANGING OPERATOR with in-stent restenosis, filling retrograde via collaterals. [...] mg Lasix was administered in the labor relations officer. Past Medical History: As per HPI Significant [...] Affect: Mood normal. Behavior: Behavior normal. Diagnostics: [facility] 06/02/2024 Coronary angiography revealed small non dominant [...] ischemic cardiomyopathy with HFrEF (~30% EF), prior DE with stents, DM type 2, HTN, HLD, [...] 40 mg IV given in the labor relations officer; assess diuretic response. -Continue carvedilol; hold Entresto [...] & Follow-up Care: Contact information for follow-up [facility] [address] [facility] [address] Cardiac Rehab, [address] [address] JAMIE GRAMAJO confirmed with [facility] that they [...] Payor: AARP MANAGED MEDICARE / Plan: AARP [facility] MANAGED MEDICARE COMPLETE / Product [...] RN - 06/18/2024 10:50 AM EST [facility] CARDIAC REHABILITATION George Mehta was seen today regarding participation in the outpatient Phase 2 Cardiac Rehabilitation at [facility]. The patient agrees to a referral to [...] spouse, pet(s) (Pt lives w/ his , Manyd, and 2 dogs Zuleika & Kaley). Current [...] Agency/Support Group Needs: Homecare agency Agency Choices: [facility] Home Health Services: Medication checks, Registered Nurse, Physical Therapy Agency Referrals: pending clinical course and PT/OT recs [facility] [address] [facility] [address] PHONE: [phone] FAX: [phone] Transportation: family or friend will provide Barriers [...] MEDICARE Payor: AARP MANAGED MEDICARE / Plan: [facility] / Product Type: *No Product type* / Secondary Insurance: N/A Plan for discharge is: Home w/ Services Outpatient Agency/Support Group Needs: Homecare agency Agency Choices: [facility]: Medication checks, Registered Nurse, Physical Therapy Agency Referrals: pending clinical course and PT/OT recs [facility] [address] [place] [address] PHONE: [phone] FAX: [phone] Transportation: family or friend will provide Barriers [...] MD - 06/14/2024 8:48 AM EST [facility] Operative Note Patient Name: George Mehta : [id number] MR#: [id number] Case Date: 06/14/2024 Surgeon: Surgeons and Role: * Bobby Loja MD - Primary * Rashi Bass PA - Physician Engineer Gas Pumping Station Preoperative diagnosis: CAD, MARIALUISA flickering mass on [...] area. The patient was transported to the [facility] in a critical but stable condition Surgical [...] procedures today and tomorrow. Report called to [facility] - all belongings with patient. PLAN MOVING FORWARD: laborer high density press and transfer to [facility]. INDIVIDUALIZED FALL PREVENTION INTERVENTIONS: Assistance [level of [...] MEDICARE Payor: AARP MANAGED MEDICARE / Plan: [facility] MANAGED MEDICARE COMPLETE / Product Type: *No Product type* / Secondary Insurance: N/A Plan for discharge is: Home w/ Services Outpatient Agency/Support Group Needs: Homecare agency, Agency Choices: [facility] Home Health Services: Medication checks, Registered Nurse, Physical Therapy Agency Referrals: [facility] [address] [address] RN / PT Routed 06/10 Transportation: family [...] with home health services when medically ready. digital media analyst/Stock Holder will continue to follow patient???s progress and remain available if situation changes for coordination of care, psychosocial support and/or discharge planning. Anticipated Date of Discharge: 06/18/2024 Mariia Montero RN CM Extension [phone] * Plan of Care - Migel Javier [...] Payor: AARP MANAGED MEDICARE / Plan: AARP [facility] MANAGED MEDICARE COMPLETE / Product [...] consult for high risk PCI vs CABG digital media analyst/Stock Holder will continue to follow patient???s progress and remain available if situation changes for coordination of care, psychosocial support and/or discharge planning. Anticipated Date of Discharge: 06/11/2024 Mariia Montero RN CM Extension [phone] * Plan of Care - Becca Hope [...] Plan of Care Review 06/07/2024656 by Becca Hpoe RN Outcome: Ongoing [...] Optimal Comfort and Wellbeing 06/07/2024656 by Becca Hoep RN Outcome: Ongoing (Interventions [...] ischemic cardiomyopathy with HFrEF (~30% EF), prior DE with stents, DM type 2, HTN, HLD, [...] CABG and to provide a review of terminal system operator diabetes care. Diabetes History: George Mehta [...] Breakfast- varies - eggs with khoury or cymraes muffin Lunch- turkey sandwich Supper- meat and [...] Infusions: heparin (porcine) infusion 1,400 Units/hr (06/06/24 5381) PRN: insulin lispro, potassium chloride ER OR [...] ischemic cardiomyopathy with HFrEF (~30% EF), prior DE with stents, DM type 2, HTN, HLD, [...] Baumann APRN Endocrinology Diabetes Management Service Pager: [phone] Weekends please page [phone] 80 minute visit was spent in counseling [...] to high 80's. PLAN MOVING FORWARD: [facility] draws w/ AM labs. Continue [...] Appropriate) Goal: Patient-Specific Goal (Individualized) 06/05/2024631 by Migle Javier RN Outcome: Ongoing (Interventions Implemented as Appropriate) 06/05/2024631 by Migel Javier RN Outcome: Ongoing (Interventions Implemented as Appropriate) Goal: Absence of Hospital-Acquired Illness or Injury 06/05/2024631 by Mgiel Javier RN Outcome: Ongoing (Interventions Implemented as [...] PM EDT Cardiac Surgery Consult Note George Mehat is seen at the request of Dr. Fofana for the evaluation of multivessel CAD. HPI: George Mehta is a 69 y.o. male with a PMHx of previous DE s/p PCI x3, ICM/HFrEF (LVEF 30%) s/p ICD, DMII, HTN, HLD, remote melanoma, and smoker who presented to [facility] last night via EMS after developing acute, severe chest pain while watching TV. Patient was ruled in for STEMI, given TNK, ASA, plavix, heparin gtt, and sent to [facility] for coronary angiography. LHC demonstrated severely calcified left coronary system with notable LCx 75/80% lesions and FELT HAT FLANGING OPERATOR OM1 with ISR with collateral retrograde filling, [...] elevation myocardial infarction) Past Medical History: previous DE s/p PCI x3 ICM/HFrEF (LVEF 30%) s/p [...] is large. OM1 appears to be a FELT HAT FLANGING OPERATOR, with in stentrestenosis and fills retrograde via [...] y.o. male admitted with STEMI s/p TNK, [facility] showing multivessel CAD including ISR, no culprit [...] our service. Signed: Paula Treviño PA-C [facility] Section of Cardiac Surgery Date: 06/03/2024 [...] surrogate would be surrogate decision maker per [place] surrogate decision making law. (Only good for 180 days) Any patient receiving care in [place] must abide by [place] law. The hierarchy for surrogate decision making [...] In the past 12 months has the [employer], gas, oil, or water [employer] threatened to shut off services in your [...] in the bathroom) Home Address confirmed as: [address] [place] [address] [facility] [address] Social & Family Supports: All names listed [...] Pertinent/Service Specific Information: Health/Prescription Coverage: Primary Insurance: [facility] MANAGED MEDICARE Payor: [facility] MANAGED MEDICARE / Plan: [facility] MANAGED MEDICARE COMPLETE / Product Type: *No Product type* / Secondary Insurance: N/A ; Prescription Coverage: Yes Preferred Pharmacy: [id number] - [place], [place] - [address] [facility] [address] [facility] [address] [place] Status: Patient is a : No Primary Care Provider confirmed: Mauro Berumen MD [phone] Patient/Caregiver Goals of Treatment: Potential Needs for [...] care as indicated. [facility], [phone]. [phone] * Brief Op Note - Angeles Gaxiola PA - 06/03/2024 12:23 AM EDT Preliminary Cardiac Catheterization Procedure Note: Patient Name: George Mehta : [id number] MR#: [id number] Case Date: 06/02/2024 - 06/03/2024 Leather Stretcher: Surgeons and Role: * Nuha Shen MD - Primary * Angeles Gaxiola PA - Physician Engineer Gas Pumping Station Preoperative diagnosis: STEMI Postoperative diagnosis: * STEMI * Procedure(s) performed: RRA access [facility] Coronary angiogram IVUS LM/LAD/LCX Access: 6 Fr RRA A time-out was conducted prior to the start of the procedure to verify the correct patient and procedure, procedure location, and all relevant critical information. Preliminary findings: 69 year old current smoker (1-2 cigarette's per day), DM type 2, hypertension, dyslipidemia, ICD for HFrEF/low EF (~30%), CAD with prior DE and 3 stents historically (in [place]) who presented to [facility] with 1 hour of rest chest pain [...] is large. OM1 appears to be a [employer]T [employer]ANGING OPERATOR, with in stentrestenosis and fills retrograde via [...] 40 mg of lasix in the labor relations officer. Recommendations: surgical consult for possible open revascularization; [...] 7:20 AM EST Coronary artery disease involving [place] coronary artery of [place] heart without angina pectoris POC, GLUCOSE Routine [...] TEST O RDERABLES [facility] [place] [address] * (ABNORMAL) Basic Metabolic Panel (06/21/2024 2:09 [...] - 145 mMol/L 06/21/2024 3:[address] [facility] Potassium 4.2 3.5 - 5.0 [...] EST 06/21/2024 2:37 AM EST Keila Garciafield GLASS CURVATURE GAUGER CHEMISTRY ORDERABL ES [facility] [place] [address] * POC, GLUCOSE (06/21/2024 12:04 AM EST) [...] TEST O NIKA Performing Organization Address City/[facility] Co de Phone Number [facility] [place] [place] [address] * POC, GLUCOSE (06/20/2024 11:14 PM EST) Glucometer, POC 67 65 - 199 mg/dL 06/20/2024 11:[address] [facility] Comment:Supplemental ranges: <140 mg/dL before meals <180 mg/dL all other times of the day. Blood CAPILLARY BLOOD / Unknown 06/20/2024 11:14 PM EST 06/20/2024 11:14 PM EST Bobby Loja MD POINT OF CARE TEST Abimael MAHER Performing Organization Address [facility] Co de Phone Number [facility] [place] [address] * POC, GLUCOSE (06/20/2024 7:16 PM EST) [...] TEST Abimael MAHER Performing Organization Address City/[facility] Co de Phone Number [facility] [place] [address] * POC, GLUCOSE (06/20/2024 3:39 PM EST) Glucometer, POC 124 65 - 199 mg/dL 06/20/2024 3:[address] [facility] Comment:Supplemental ranges: <140 mg/dL before meals <180 mg/dL all other times of the day. Blood CAPILLARY BLOOD / Unknown 06/20/2024 3:39 PM EST 06/20/2024 3:40 PM EST Bobby Loja MD POINT OF CARE TEST O NIKA [facility] [place] [address] * POC, GLUCOSE (06/20/2024 12:02 PM EST) Glucometer, POC 173 65 - 199 mg/dL 06/20/2024 12:[address] [facility] Comment:Supplemental ranges: <140 mg/dL before meals <180 mg/dL all other times of the day. Blood CAPILLARY BLOOD / Unknown 06/20/2024 12:02 PM EST 06/20/2024 12:03 PM EST Bobby Loja MD POINT OF CARE TEST O NIKA Performing Organization Address City/[facility]/ZIP Co de Phone Number [facility] [place] [place] [address] * POC, GLUCOSE (06/20/2024 7:10 AM EST) Glucometer, POC 130 65 - 199 mg/dL 06/20/2024 7:[address] [facility] Comment:Supplemental ranges: <140 mg/dL before meals <180 mg/dL all other times of the day. Blood CAPILLARY BLOOD / Unknown 06/20/2024 7:10 AM EST 06/20/2024 7:11 AM EST Bobby Loja MD POINT OF CARE TEST O NIKA [facility] [address] * (ABNORMAL) Basic Metabolic Panel (06/20/2024 2:28 [...] CHEMISTRY ORDERABL ES Performing Organization Address [facility] Co de Phone Number [facility] [place] [place] [address] * POC, GLUCOSE (06/20/2024 12:32 AM EST) Glucometer, POC 86 65 - 199 mg/dL 06/20/2024 12:[address] [facility] Comment:Supplemental ranges: <140 mg/dL before meals <180 mg/dL all other times of the day. Blood CAPILLARY BLOOD / Unknown 06/20/2024 12:32 AM EST 06/20/2024 12:32 AM EST Bobby Loja MD POINT OF CARE TEST O RDERABLES Performing Organization Address [facility] Co de Phone Number [facility] [place] [address] * (ABNORMAL) POC, GLUCOSE (06/20/2024 12:02 AM EST) Glucometer, POC 59(L) 65 - 199 mg/dL 06/20/2024 12:[address] [facility] Comment:Supplemental ranges: <140 mg/dL before meals <180 mg/dL all other times of the day. Blood CAPILLARY BLOOD / Unknown 06/20/2024 12:02 AM EST 06/20/2024 12:03 AM EST Bobby Loja MD POINT OF CARE TEST O RDERAPIETER Performing Organization Address City/[facility]/ZIP Co de Phone Number [facility] [place] [address] * POC, GLUCOSE (06/19/2024 8:15 PM EST) [...] TEST O NIKA Performing Organization Address [facility] Co de Phone Number [facility] [place] [address] * POC, GLUCOSE (06/19/2024 6:01 PM EST) Glucometer, POC 129 65 - 199 mg/dL 06/19/2024 6:[address] [facility] Comment:Supplemental ranges: <140 mg/dL before meals <180 mg/dL all other times of the day. Blood CAPILLARY BLOOD / Unknown 06/19/2024 6:01 PM EST 06/19/2024 6:02 PM EST Bobby Loja MD POINT OF CARE TEST Abimael MAHER Performing Organization Address [facility] Co de Phone Number [facility] [place] [place] [address] * POC, GLUCOSE (06/19/2024 4:51 PM EST) [...] TEST Abimael MAHER Performing Organization Address [facility] Co de Phone Number [facility] [place] [place] [address] * POC, GLUCOSE (06/19/2024 12:37 PM EST) Glucometer, POC 136 65 - 199 mg/dL 06/19/2024 12:[address] [facility] Comment:Supplemental ranges: <140 mg/dL before meals <180 mg/dL all other times of the day. Blood CAPILLARY BLOOD / Unknown 06/19/2024 12:37 PM EST 06/19/2024 12:37 PM EST Bobby Loja MD POINT OF CARE TEST O NIKA [facility] [place] [address] * POC, GLUCOSE (06/19/2024 11:20 AM EST) Glucometer, POC 185 65 - 199 mg/dL 06/19/2024 11:[address] [facility] Comment:Supplemental ranges: <140 mg/dL before meals <180 mg/dL all other times of the day. Blood CAPILLARY BLOOD / Unknown 06/19/2024 11:20 AM EST 06/19/2024 11:21 AM EST Bobby Loja MD POINT OF CARE TEST O NIKA Performing Organization Address City/[facility]/ZIP Co de Phone Number [facility] [place] [address] * POC, GLUCOSE (06/19/2024 7:21 AM EST) Glucometer, POC 125 65 - 199 mg/dL 06/19/2024 7:[address] [facility] Comment:Supplemental ranges: <140 mg/dL before meals <180 mg/dL all other times of the day. Blood CAPILLARY BLOOD / Unknown 06/19/2024 7:21 AM EST 06/19/2024 7:22 AM EST Bobby Loja MD POINT OF CARE TEST O NIKA [facility] [place] [address] * POC, GLUCOSE (06/19/2024 4:52 AM EST) Glucometer, POC 125 65 - 199 mg/dL 06/19/2024 4:[address] [facility] Comment:Supplemental ranges: <140 mg/dL before meals <180 mg/dL all other times of the day. Blood CAPILLARY BLOOD / Unknown 06/19/2024 4:52 AM EST 06/19/2024 4:52 AM EST Bobby Loja MD POINT OF CARE TEST O NIKA Performing Organization Address City/[facility]/ZIP Co de Phone Number [facility] [place] [place] [address] * POC, GLUCOSE (06/19/2024 4:13 AM EST) Glucometer, POC 67 65 - 199 mg/dL 06/19/2024 4:[address] [facility] Comment:Supplemental ranges: <140 mg/dL before meals <180 mg/dL all other times of the day. Blood CAPILLARY BLOOD / Unknown 06/19/2024 4:13 AM EST 06/19/2024 4:13 AM EST Bobby Loja MD POINT OF CARE TEST O NIKA Performing Organization Address [facility] Co de Phone Number [facility] [place] [address] * (ABNORMAL) POC, GLUCOSE (06/19/2024 3:48 AM EST) Glucometer, POC 51(LLL) 65 - 199 mg/dL 06/19/2024 3:[address] [facility] Comment:Supplemental ranges: <140 mg/dL before meals <180 mg/dL all other times of the day. Blood CAPILLARY BLOOD / Unknown 06/19/2024 3:48 AM EST 06/19/2024 3:48 AM EST Bobby Loja MD POINT OF CARE TEST O NIKA Performing Organization Address City/[facility]/ZIP Co de Phone Number [facility] [place] [place] [address] * (ABNORMAL) Basic Metabolic Panel (06/19/2024 3:44 AM EST) Glucose 53(LLL) 65 - 199 mg/dL 06/19/2024 4:48 AM [facility] Comment:Glucose [...] CHEMISTRY ORDERABL ES Performing Organization Address City/[facility]/ZIP Co de Phone Number [facility] [place] [address] * POC, GLUCOSE (06/19/2024 12:23 AM EST) Glucometer, POC 82 65 - 199 mg/dL 06/19/2024 12:[address] [facility] Comment:Supplemental ranges: <140 mg/dL before meals <180 mg/dL all other times of the day. Blood CAPILLARY BLOOD / Unknown 06/19/2024 12:23 AM EST 06/19/2024 12:23 AM EST Bobby Loja MD POINT OF CARE TEST O NIKA Performing Organization Address [facility] Co de Phone Number [facility] [place] [address] * POC, GLUCOSE (06/18/2024 11:08 PM EST) Glucometer, POC 73 65 - 199 mg/dL 06/18/2024 11:[address] [facility] Comment:Supplemental ranges: <140 mg/dL before meals <180 mg/dL all other times of the day. Blood CAPILLARY BLOOD / Unknown 06/18/2024 11:08 PM EST 06/18/2024 11:08 PM EST Bobby Loja MD POINT OF CARE TEST O NIKA Performing Organization Address City/[facility]/ZIP Co de Phone Number [facility] [place] [address] * POC, GLUCOSE (06/18/2024 7:32 PM EST) Glucometer, POC 167 65 - 199 mg/dL 06/18/2024 7:[address] [facility] Comment:Supplemental ranges: <140 mg/dL before meals <180 mg/dL all other times of the day. Blood CAPILLARY BLOOD / Unknown 06/18/2024 7:32 PM EST 06/18/2024 7:32 PM EST Bobby Loja MD POINT OF CARE TEST O NIKA [facility] [place] [address] * POC, GLUCOSE (06/18/2024 6:08 PM EST) Glucometer, POC 140 65 - 199 mg/dL 06/18/2024 6:[address] [facility] Comment:Supplemental ranges: <140 mg/dL before meals <180 mg/dL all other times of the day. Blood CAPILLARY BLOOD / Unknown 06/18/2024 6:08 PM EST 06/18/2024 6:09 PM EST Bobby Loja MD POINT OF CARE TEST O NIKA Performing Organization Address City/[facility]/ZIP Co de Phone Number [facility] [place] [place] [address] * POC, GLUCOSE (06/18/2024 4:17 PM EST) Glucometer, POC 144 65 - 199 mg/dL 06/18/2024 4:[address] [facility] Comment:Supplemental ranges: <140 mg/dL before meals <180 mg/dL all other times of the day. Blood CAPILLARY BLOOD / Unknown 06/18/2024 4:17 PM EST 06/18/2024 4:17 PM EST Bobby Loja MD POINT OF CARE TEST O NIKA [facility] [place] [address] * POC, GLUCOSE (06/18/2024 12:09 PM EST) Glucometer, POC 180 65 - 199 mg/dL 06/18/2024 12:[address] [facility] Comment:Supplemental ranges: <140 mg/dL before meals <180 mg/dL all other times of the day. Blood CAPILLARY BLOOD / Unknown 06/18/2024 12:09 PM EST 06/18/2024 12:09 PM EST Bobby Loja MD POINT OF CARE TEST O NIKA Performing Organization Address City/[facility] Co de Phone Number [facility] [place] [place] [address] * POC, GLUCOSE (06/18/2024 7:49 AM EST) Glucometer, POC 125 65 - 199 mg/dL 06/18/2024 7:[address] [facility] Comment:Supplemental ranges: <140 mg/dL before meals <180 mg/dL all other times of the day. Blood CAPILLARY BLOOD / Unknown 06/18/2024 7:49 AM EST 06/18/2024 7:50 AM EST Bobby Loja MD POINT OF CARE TEST Abimael MAHER Performing Organization Address [facility] Co de Phone Number [facility] [place] [address] * (ABNORMAL) Basic Metabolic Panel (06/18/2024 4:19 AM EST) Glucose 103 65 - 199 mg/dL 06/18/2024 5:03 AM [facility] Comment:Glucose Concentratio n >=200 mg/dL plus symptoms is consistent with Diabetes Mellitus. Blood Urea Nitrogen 43(H) 10 - 20 mg/dL 06/18/2024 5:03 AM [facility] Creatinine 1.45 0.80 - 1.50 mg/dL 06/18/2024 5:03 AM [facility] Sodium 131(L) 135 - 145 [...] 53 mL/min/1. 73 m?? 06/18/2024 5:03 AM [facility] Comment: [...] EST 06/18/2024 4:31 AM EST Keila Dayan GLASS CURVATURE GAUGER CHEMISTRY ORDERABL ES [facility] [place] [address] * POC, GLUCOSE (06/18/2024 3:50 AM EST) Glucometer, POC 99 65 - 199 mg/dL 06/18/2024 3:[address] [facility] Comment:Supplemental ranges: <140 mg/dL before meals <180 mg/dL all other times of the day. Blood CAPILLARY BLOOD / Unknown 06/18/2024 3:50 AM EST 06/18/2024 3:51 AM EST Bobby Loja MD POINT OF CARE TEST O NIKA Performing Organization Address [facility] Co de Phone Number [facility] [place] [address] * POC, GLUCOSE (06/17/2024 11:10 PM EST) Glucometer, POC 92 65 - 199 mg/dL 06/17/2024 11:[address] [facility] Comment:Supplemental ranges: <140 mg/dL before meals <180 mg/dL all other times of the day. Blood CAPILLARY BLOOD / Unknown 06/17/2024 11:10 PM EST 06/17/2024 11:10 PM EST Bobby Loja MD POINT OF CARE TEST O NIKA Performing Organization Address [facility] Co de Phone Number [facility] [place] [address] * POC, GLUCOSE (06/17/2024 7:54 PM EST) [...] TEST O NIKA Performing Organization Address [facility] Co de Phone Number [facility] [place] [address] * POC, GLUCOSE (06/17/2024 4:07 PM EST) Glucometer, POC 141 65 - 199 mg/dL 06/17/2024 4:[address] [facility] Comment:Supplemental ranges: <140 mg/dL before meals <180 mg/dL all other times of the day. Blood CAPILLARY BLOOD / Unknown 06/17/2024 4:07 PM EST 06/17/2024 4:12 PM EST Bobby Loja MD POINT OF CARE TEST O RDERABLES [facility] [place] [address] * XR Chest PA & Lateral (Generic) (06/17/2024 1:46 PM EST) WORKSTATION ID [id number] RAD Anatomical Region Laterality Modality Chest N/A [...] who have questions please contact the health day care teacher that requested your imaging first. ? [...] patients who have questions please contactthe health day care teacher that requested your imaging first. Keila Hanley APRN IMG DX ORDERABLES * (ABNORMAL) POC, GLUCOSE (06/17/2024 11:04 AM EST) [facility] Signature Glucometer, POC 245(H) 65 - 199 mg/dL 06/17/2024 11:[address] [facility] Comment:Supplemental ranges: <140 mg/dL before meals <180 mg/dL all other times of the day. Blood CAPILLARY BLOOD / Unknown 06/17/2024 11:04 AM EST 06/17/2024 11:04 AM EST Bobby Loja MD POINT OF CARE TEST O RDERABLES [facility] [place] [address] * POC, GLUCOSE (06/17/2024 7:49 AM EST) Glucometer, POC 141 65 - 199 mg/dL 06/17/2024 7:[address] [facility] Comment:Supplemental ranges: <140 mg/dL before meals <180 mg/dL all other times of the day. Blood CAPILLARY BLOOD / Unknown 06/17/2024 7:49 AM EST 06/17/2024 7:55 AM EST Bobby Loja MD POINT OF CARE TEST O RDERABLES Performing Organization Address City/[facility]/ZIP Co de Phone Number [facility] [place] [place] [address] * POC, GLUCOSE (06/17/2024 4:16 AM EST) Glucometer, POC 139 65 - 199 mg/dL 06/17/2024 4:[address] [facility] Comment:Supplemental ranges: <140 mg/dL before meals <180 mg/dL all other times of the day. Blood CAPILLARY BLOOD / Unknown 06/17/2024 4:16 AM EST 06/17/2024 4:17 AM EST Bobby Loja MD POINT OF CARE TEST O RDERABLES Performing Organization Address City/[facility]/ZIP Co de Phone Number [facility] [place] [address] * Lactate, Whole Blood (06/17/2024 2:39 AM EST) Lactate, Whole Blood 1.3 0.5 - 2.2 mmol/L 06/17/2024 2:[address] [facility] Blood VENOUS BLOOD SPECIMEN / Unknown Venipuncture / Unknown 06/17/2024 2:39 AM EST 06/17/2024 2:43 AM EST Bobby Loja MD CHEMISTRY ORDERABLES [facility] [place] [address] * (ABNORMAL) Hemogram (06/17/2024 2:39 AM EST) [...] HEMATOLOGY ORDERABLE S [facility] [place] [address] * (ABNORMAL) Basic Metabolic Panel (06/17/2024 2:39 AM EST) Glucose 149 65 - 199 mg/dL 06/17/2024 3:[address] [facility] Comment:Glucose [...] 50 mL/min/1. 73 m?? 06/17/2024 3:14 AM [facility] Comment: [...] MD CHEMISTRY ORDERABLES Performing Organization Address [facility] Co de Phone Number [facility] [place] [address] * (ABNORMAL) POC, GLUCOSE (06/17/2024 12:13 AM EST) Glucometer, POC 211(H) 65 - 199 mg/dL 06/17/2024 12:[address] [facility] Comment:Supplemental ranges: <140 mg/dL before meals <180 mg/dL all other times of the day. Blood CAPILLARY BLOOD / Unknown 06/17/2024 12:13 AM EST 06/17/2024 12:14 AM EST Bobby Loja MD POINT OF CARE TEST O RDERABLES Performing Organization Address City/[facility] Co de Phone Number [facility] [place] [address] * (ABNORMAL) POC, GLUCOSE (06/16/2024 7:22 PM EST) Glucometer, POC 229(H) 65 - 199 mg/dL 06/16/2024 7:[address] [facility] Comment:Supplemental ranges: <140 mg/dL before meals <180 mg/dL all other times of the day. Blood CAPILLARY BLOOD / Unknown 06/16/2024 7:22 PM EST 06/16/2024 7:22 PM EST Bobby Loja MD POINT OF CARE TEST O NIKA Performing Organization Address [facility] Co de Phone Number [facility] [place] [address] * (ABNORMAL) POC, GLUCOSE (06/16/2024 6:14 PM EST) Glucometer, POC 220(H) 65 - 199 mg/dL 06/16/2024 6:[address] [facility] Comment:Supplemental ranges: <140 mg/dL before meals <180 mg/dL all other times of the day. Blood CAPILLARY BLOOD / Unknown 06/16/2024 6:14 PM EST 06/16/2024 6:14 PM EST Bobby Loja MD POINT OF CARE TEST O NIKA Performing Organization Address [facility] de Phone Number [facility] [place] [address] * Lactate, Whole Blood (06/16/2024 6:14 PM EST) Lactate, Whole Blood 1.8 0.5 - 2.2 mmol/L 06/16/2024 6:[address] [facility] Blood VENOUS BLOOD SPECIMEN / Unknown Venipuncture / Unknown 06/16/2024 6:14 PM EST 06/16/2024 6:25 PM EST Bobby Loja MD CHEMISTRY ORDERABLES Performing Organization Address [facility] Co de Phone Number [facility] [place] [address] * (ABNORMAL) POC, GLUCOSE (06/16/2024 4:14 PM EST) Glucometer, POC 240(H) 65 - 199 mg/dL 06/16/2024 4:[address] [facility] Comment:Supplemental ranges: <140 mg/dL before meals <180 mg/dL all other times of the day. Blood CAPILLARY BLOOD / Unknown 06/16/2024 4:14 PM EST 06/16/2024 4:14 PM EST Bobby Loja MD POINT OF CARE TEST O NIKA Performing Organization Address [facility]/ZIP Co de Phone Number [facility] [place] [address] * POC, GLUCOSE (06/16/2024 11:49 AM EST) Glucometer, POC 199 65 - 199 mg/dL 06/16/2024 11:[address] [facility] Comment:Supplemental ranges: <140 mg/dL before meals <180 mg/dL all other times of the day. Blood CAPILLARY BLOOD / Unknown 06/16/2024 11:49 AM EST 06/16/2024 11:49 AM EST Bobby Loja MD POINT OF CARE TEST Abimael MAHER Performing Organization Address [facility] Co de Phone Number [facility] [place] [address] * (ABNORMAL) Hemogram (06/16/2024 11:44 AM EST) White Blood Cell 17.91(H) 4.00 - 9.50 x10(3)/mc L 06/16/2024 12:25 PM [facility] Red Blood Cell 3.47(L) 4.58 - 5.54 x10(6)/mc L 06/16/2024 12:25 PM [facility] Hemoglobin 10.5(L) 13.7 - 16.5 g/dL 06/16/2024 12:25 PM [facility] Hematocrit 33.1(L) 40.5 - 48.5 % 06/16/2024 12:25 PM [facility] Mean Cell Volume 95.4(H) 82.9 [...] EST Bobby Loja MD [place] [address] * Lactate, Whole Blood (06/16/2024 9:02 AM EST) Lactate, Whole Blood 1.8 0.5 - 2.2 mmol/L 06/16/2024 9:[address] [facility] Blood VENOUS BLOOD SPECIMEN / Unknown Venipuncture / Unknown 06/16/2024 9:02 AM EST 06/16/2024 9:17 AM EST Bobby Loja MD CHEMISTRY ORDERABLES [facility] [place] [address] * POC, GLUCOSE (06/16/2024 7:44 AM EST) Glucometer, POC 129 65 - 199 mg/dL 06/16/2024 7:[address] [facility] Comment:Supplemental ranges: <140 mg/dL before meals <180 mg/dL all other times of the day. Blood CAPILLARY BLOOD / Unknown 06/16/2024 7:44 AM EST 06/16/2024 7:44 AM EST Bobby Loja MD POINT OF CARE TEST O RDERABLES Performing Organization Address City/[facility]/ZIP Co de Phone Number [facility] [place] [place] [address] * POC, GLUCOSE (06/16/2024 4:01 AM EST) Glucometer, POC 158 65 - 199 mg/dL 06/16/2024 4:[address] [facility] Comment:Supplemental ranges: <140 mg/dL before meals <180 mg/dL all other times of the day. Blood CAPILLARY BLOOD / Unknown 06/16/2024 4:01 AM EST 06/16/2024 4:01 AM EST Bobby Loja MD POINT OF CARE TEST O RDERAPIETER Performing Organization Address City/[facility]/ZIP Co de Phone Number [facility] [place] [address] * (ABNORMAL) Basic Metabolic Panel (06/16/2024 2:23 AM EST) Glucose 177 65 - 199 mg/dL 06/16/2024 3:[address] [facility] Comment:Glucose Concentratio n >=200 mg/dL plus symptoms is consistent with Diabetes Mellitus. Blood Urea Nitrogen 37(H) 10 - 20 mg/dL 06/16/2024 3:[address] [facility] Creatinine 2.10(H) 0.80 - 1.50 mg/dL 06/16/2024 3:[address] [facility] Sodium 132(L) 135 - 145 [...] MD CHEMISTRY ORDERABLES [facility] [place] [address] * POC, GLUCOSE (06/16/2024 2:21 AM EST) [facility] Signature Glucometer, POC 176 65 - 199 mg/dL 06/16/2024 2:31 AM [facility] Comment:Supplemental ranges: <140 mg/dL before meals <180 mg/dL all other times of the day. Blood CAPILLARY BLOOD / Unknown 06/16/2024 2:21 AM EST 06/16/2024 2:31 AM EST Bobby Loja MD POINT OF CARE TEST O RALPHERAPIETER Performing Organization Address City/[facility]/ZIP Co de Phone Number [facility] [place] [address] * (ABNORMAL) POC, GLUCOSE (06/16/2024 12:09 AM EST) Glucometer, POC 222(H) 65 - 199 mg/dL 06/16/2024 12:[address] [facility] Comment:Supplemental ranges: <140 mg/dL before meals <180 mg/dL all other times of the day. Blood CAPILLARY BLOOD / Unknown 06/16/2024 12:09 AM EST 06/16/2024 12:09 AM EST Bobby Loaj MD POINT OF CARE TEST O NIKA Performing Organization Address City/[facility]/ZIP Co de Phone Number [facility] [place] [address] * (ABNORMAL) POC, GLUCOSE (06/15/2024 10:07 PM EST) Glucometer, POC 320(H) 65 - 199 mg/dL 06/15/2024 10:[address] [facility] Comment:Supplemental ranges: <140 mg/dL before meals <180 mg/dL all other times of the day. Blood CAPILLARY BLOOD / Unknown 06/15/2024 10:07 PM EST 06/15/2024 10:07 PM EST Bobby Loja MD POINT OF CARE TEST O NIKA [facility] [place] [address] * (ABNORMAL) POC, GLUCOSE (06/15/2024 7:56 PM EST) Glucometer, POC 304(H) 65 - 199 mg/dL 06/15/2024 7:[address] [facility] Comment:Supplemental ranges: <140 mg/dL before meals <180 mg/dL all other times of the day. Blood CAPILLARY BLOOD / Unknown 06/15/2024 7:56 PM EST 06/15/2024 7:56 PM EST Bobby Loja MD POINT OF CARE TEST O NIKA Performing Organization Address [facility] Co de Phone Number [facility] [place] [place] [address] * (ABNORMAL) POC, GLUCOSE (06/15/2024 7:52 PM EST) Glucometer, POC 288(H) 65 - 199 mg/dL 06/15/2024 7:[address] [facility] Comment:Supplemental ranges: <140 mg/dL before meals <180 mg/dL all other times of the day. Blood CAPILLARY BLOOD / Unknown 06/15/2024 7:52 PM EST 06/15/2024 7:52 PM EST Bobby Loja MD POINT OF CARE TEST O NIKA Performing Organization Address [facility] Co de Phone Number [facility] [place] [place] [address] * POC, GLUCOSE (06/15/2024 4:21 PM EST) Glucometer, POC 192 65 - 199 mg/dL 06/15/2024 4:[address] [facility] Comment:Supplemental ranges: <140 mg/dL before meals <180 mg/dL all other times of the day. Blood CAPILLARY BLOOD / Unknown 06/15/2024 4:21 PM EST 06/15/2024 4:21 PM EST Bobby Loja MD POINT OF CARE TEST O NIKA [facility] [place] [place] [address] * POC, GLUCOSE (06/15/2024 3:27 PM EST) Glucometer, POC 155 65 - 199 mg/dL 06/15/2024 3:[address] [facility] Comment:Supplemental ranges: <140 mg/dL before meals <180 mg/dL all other times of the day. Blood CAPILLARY BLOOD / Unknown 06/15/2024 3:27 PM EST 06/15/2024 3:27 PM EST Bobby Loja MD POINT OF CARE TEST O NIKA Performing Organization Address City/[facility] Co de Phone Number [facility] [place] [place] [address] * POC, GLUCOSE (06/15/2024 2:23 PM EST) Glucometer, POC 160 65 - 199 mg/dL 06/15/2024 2:[address] [facility] Comment:Supplemental ranges: <140 mg/dL before meals <180 mg/dL all other times of the day. Blood CAPILLARY BLOOD / Unknown 06/15/2024 2:23 PM EST 06/15/2024 2:23 PM EST Bobby Loja MD POINT OF CARE TEST O NIKA Performing Organization Address City/[facility]/ZIP Co de Phone Number [facility] [place] [place] [address] * POC, GLUCOSE (06/15/2024 1:26 PM EST) Glucometer, POC 167 65 - 199 mg/dL 06/15/2024 1:[address] [facility] Comment:Supplemental ranges: <140 mg/dL before meals <180 mg/dL all other times of the day. Blood CAPILLARY BLOOD / Unknown 06/15/2024 1:26 PM EST 06/15/2024 1:26 PM EST Bobby Loja MD POINT OF CARE TEST O RDERABLES Performing Organization Address [facility] Co de Phone Number [facility] [place] [address] * (ABNORMAL) POC, GLUCOSE (06/15/2024 12:55 PM EST) Glucometer, POC 210(H) 65 - 199 mg/dL 06/15/2024 12:[address] [facility] Comment:Supplemental ranges: <140 mg/dL before meals <180 mg/dL all other times of the day. Blood CAPILLARY BLOOD / Unknown 06/15/2024 12:55 PM EST 06/15/2024 12:55 PM EST Bobby Loja MD POINT OF CARE TEST O NIKA Performing Organization Address [facility] Co de Phone Number [facility] [place] [place] [address] * (ABNORMAL) POC, GLUCOSE (06/15/2024 11:29 AM EST) Glucometer, POC 220(H) 65 - 199 mg/dL 06/15/2024 11:[address] [facility] Comment:Supplemental ranges: <140 mg/dL before meals <180 mg/dL all other times of the day. Blood CAPILLARY BLOOD / Unknown 06/15/2024 11:29 AM EST 06/15/2024 11:29 AM EST Bobby Loja MD POINT OF CARE TEST O RALPHERAPIETER Performing Organization Address City/[facility] Co de Phone Number [facility] [place] [address] * (ABNORMAL) Basic Metabolic Panel (06/15/2024 11:23 AM EST) Glucose 215(H) 65 - 199 mg/dL 06/15/2024 12:[address] [facility] Comment:Glucose [...] MD CHEMISTRY ORDERABLES [facility] [place] [phone] * POC, GLUCOSE (06/15/2024 10:29 AM EST) Glucometer, POC 189 65 - 199 mg/dL 06/15/2024 10:[address] [facility] Comment:Supplemental ranges: <140 mg/dL before meals <180 mg/dL all other times of the day. Blood CAPILLARY BLOOD / Unknown 06/15/2024 10:29 AM EST 06/15/2024 10:29 AM EST Bobby Loja MD POINT OF CARE TEST O RDERAPIETER Performing Organization Address City/[facility]/ZIP Co de Phone Number [facility] [place] [place] [address] * POC, GLUCOSE (06/15/2024 9:45 AM EST) Glucometer, POC 178 65 - 199 mg/dL 06/15/2024 9:[address] [facility] Comment:Supplemental ranges: <140 mg/dL before meals <180 mg/dL all other times of the day. Blood CAPILLARY BLOOD / Unknown 06/15/2024 9:45 AM EST 06/15/2024 9:45 AM EST Bobby Loja MD POINT OF CARE TEST O RDBECKIE [facility] [address] * (ABNORMAL) Cooximetry, POC (06/15/2024 9:31 AM EST) pO2, Coox 38 mmHg 06/15/2024 9:[address] [facility] Hemoglobin, Coox 12.9(L) 13.7 - 16.5 g/dL 06/15/2024 9:[address] [facility] Oxyhemoglobin, Coox 72.1 % 06/15/2024 9:[address] [facility] Carboxyhemoglo bin, Coox 0.9 % 06/15/2024 9:[address] [facility] Comment: Nonsmokers: 0.5-1.5% COHB ?? Smokers: Variable ??but usually less than 10% ?? Toxic: 20-30% COHB ?? Lethal: Greater than 60% COHB Methemoglobin, Coox 0.3 <=1.5 % 06/15/2024 9:[address] [facility] Blood (Mixed Venous) 06/15/2024 9:31 AM EST 06/15/2024 9:34 AM EST Bobby Loja MD POINT OF CARE TEST O NIKA Performing Organization Address [facility] Co de Phone Number [facility] [place] [place] [address] * Cooximetry, POC (06/15/2024 9:22 AM EST) pO2, Coox 30 mmHg 06/15/2024 9:[address] [facility] Hemoglobin, Coox 06/15/2024 9:[address] [facility] Comment:QUES Oxyhemoglobin, Coox 06/15/2024 9:[address] [facility] Comment:QUES Carboxyhemoglo bin, Coox 06/15/2024 9:[address] [facility] Comment:QUES Methemoglobin, Coox 06/15/2024 9:[address] [facility] Comment:QUES Blood (Mixed Venous) 06/15/2024 9:22 AM EST 06/15/2024 9:25 AM EST Bobby Loja MD POINT OF CARE TEST O RDBECKIE Performing Organization Address City/[facility] Co de Phone Number [facility] [place] [address] * (ABNORMAL) Blood Gas, Arterial POC (06/15/2024 [...] 0.5 - 2.2 mmol/L 06/15/2024 9:21 AM [facility] Flow Rate 2.0 L/min 06/15/2024 9:21 AM [facility] IONIZED CALCIUM, ARTERIAL 1.14(L) 1.15 - 1.33 mmol/L 06/15/2024 9:[address] [facility] Glucose, Arterial 193 65 - 199 mg/dL 06/15/2024 9:[address] [facility] Comment:Glucose Concentratio n >=200 mg/dL plus symptoms is consistent with Diabetes Mellitus. Blood ARTERIAL BLOOD / Unknown 06/15/2024 9:19 AM EST 06/15/2024 9:20 AM EST Bobby Loja MD POINT OF CARE TEST O NIKA Performing Organization Address [facility] Co de Phone Number [facility] [place] [address] * (ABNORMAL) POC, GLUCOSE (06/15/2024 8:37 AM EST) Glucometer, POC 204(H) 65 - 199 mg/dL 06/15/2024 8:[address] [facility] Comment:Supplemental ranges: <140 mg/dL before meals <180 mg/dL all other times of the day. Blood CAPILLARY BLOOD / Unknown 06/15/2024 8:37 AM EST 06/15/2024 8:37 AM EST Bobby Loja MD POINT OF CARE TEST O NIKA Performing Organization Address [facility] Co de Phone Number [facility] [place] [place] [address] * POC, GLUCOSE (06/15/2024 7:37 AM EST) [...] CARE TEST O NIKA Performing Organization Address City/State/[facility] de Phone Number [facility] [place] [address] * (ABNORMAL) POC, GLUCOSE (06/15/2024 7:01 AM EST) Glucometer, POC 203(H) 65 - 199 mg/dL 06/15/2024 7:[address] [facility] Comment:Supplemental ranges: <140 mg/dL before meals <180 mg/dL all other times of the day. Blood CAPILLARY BLOOD / Unknown 06/15/2024 7:01 AM EST 06/15/2024 7:01 AM EST Bobby Loja MD POINT OF CARE TEST O RDERABLES Performing Organization Address [facility] de Phone Number [facility] [place] [address] * XR Chest One View (06/15/2024 6:31 AM EST) Pathologist [employer] WORKSTATION ID [id number] [facility] Anatomical Region Laterality Modality Chest N/A [...] who have questions please contact the health day care teacher that requested your imaging first. ? [...] patients who have questions please contactthe health day care teacher that requested your imaging first. Bobby Loja [...] TEST O NIKA Performing Organization Address [facility] Co de Phone Number [facility] [place] [place] [address] * POC, GLUCOSE (06/15/2024 5:06 AM EST) Glucometer, POC 160 65 - 199 mg/dL 06/15/2024 5:[address] [facility] Comment:Supplemental ranges: <140 mg/dL before meals <180 mg/dL all other times of the day. Blood CAPILLARY BLOOD / Unknown 06/15/2024 5:06 AM EST 06/15/2024 5:06 AM EST Bobby Loja MD POINT OF CARE TEST Abimael MAHER Performing Organization Address [facility] Co de Phone Number [facility] [place] [place] [address] * POC, GLUCOSE (06/15/2024 4:05 AM EST) Glucometer, POC 160 65 - 199 mg/dL 06/15/2024 4:[address] [facility] Comment:Supplemental ranges: <140 mg/dL before meals <180 mg/dL all other times of the day. Blood CAPILLARY BLOOD / Unknown 06/15/2024 4:05 AM EST 06/15/2024 4:06 AM EST Bobby Loja MD POINT OF CARE TEST O NIKA Performing Organization Address City/[facility] Co de Phone Number [facility] [place] [address] * POC, GLUCOSE (06/15/2024 3:07 AM EST) Glucometer, POC 151 65 - 199 mg/dL 06/15/2024 3:[address] [facility] Comment:Supplemental ranges: <140 mg/dL before meals <180 mg/dL all other times of the day. Blood CAPILLARY BLOOD / Unknown 06/15/2024 3:07 AM EST 06/15/2024 3:07 AM EST Bobby Loja MD POINT OF CARE TEST O RDERABLES [facility] [place] [address] * (ABNORMAL) Basic Metabolic Panel (06/15/2024 1:48 AM EST) Glucose 140 65 - 199 mg/dL 06/15/2024 2:[address] [facility] Comment:Glucose [...] MD CHEMISTRY ORDERABLES [facility] [place] [address] * (ABNORMAL) CBC (with Diff) (06/15/2024 1:48 AM EST) White Blood Cell 11.71(H) 4.00 - 9.50 x10(3)/mc L 06/15/2024 2:13 AM [facility] Red Blood Cell 4.14(L) 4.58 [...] HEMATOLOGY ORDERABLE S [facility] [place] [address] * (ABNORMAL) Troponin - Single (06/15/2024 1:48 [...] can be found in the [facility] [address] [facility] Laboratory Test Catalog Troponin - [email or web address] Reference: Fourth [place] Definition of Myocardial Infarction. Journal of the [place] [employer] 2018;72:1890-2628 Blood VENOUS BLOOD SPECIMEN / Unknown Venipuncture / Unknown 06/15/2024 1:48 AM EST 06/15/2024 1:52 AM EST Bobby Loja MD CHEMISTRY ORDERABLES [facility] [place] [address] * (ABNORMAL) Blood Gas, Arterial POC (06/15/2024 [...] 0.3 <=1.5 % 06/15/2024 1:[address] [facility] Sodium, Arterial 139 135 - [...] TEST O NIKA Performing Organization Address City/[facility]/ZIP Co de Phone Number [facility] [place] [address] * POC, GLUCOSE (06/15/2024 1:05 AM EST) [facility] Signature Glucometer, POC 116 65 - 199 mg/dL 06/15/2024 1:05 AM [facility] Comment:Supplemental ranges: <140 mg/dL before meals <180 mg/dL all other times of the day. Blood CAPILLARY BLOOD / Unknown 06/15/2024 1:05 AM EST 06/15/2024 1:05 AM EST Bobby Loja MD POINT OF CARE TEST O NIKA [facility] [place] [address] * POC, GLUCOSE (06/15/2024 12:16 AM EST) Glucometer, POC 135 65 - 199 mg/dL 06/15/2024 12:[address] [facility] Comment:Supplemental ranges: <140 mg/dL before meals <180 mg/dL all other times of the day. Blood CAPILLARY BLOOD / Unknown 06/15/2024 12:16 AM EST 06/15/2024 12:16 AM EST Bobby Loja MD POINT OF CARE TEST O RDBECKIE Performing Organization Address City/[facility]/ZIP Co de Phone Number [facility] [place] [address] * Potassium (06/14/2024 11:28 PM EST) [facility] Potassium 4.1 3.5 - 5.0 mMol/L 06/14/2024 11:[address] [facility] Blood VENOUS BLOOD SPECIMEN / Unknown Venipuncture / Unknown 06/14/2024 11:28 PM EST 06/14/2024 11:34 PM EST Bobby Loja MD CHEMISTRY ORDERABLES Performing Organization Address City/[facility]/ZIP Co de Phone Number [facility] [place] [address] * POC, GLUCOSE (06/14/2024 10:58 PM EST) Glucometer, POC 126 65 - 199 mg/dL 06/14/2024 10:[address] [facility] Comment:Supplemental ranges: <140 mg/dL before meals <180 mg/dL all other times of the day. Blood CAPILLARY BLOOD / Unknown 06/14/2024 10:58 PM EST 06/14/2024 10:59 PM EST Bobby Loja MD POINT OF CARE TEST O NIKA [facility] [place] [address] * POC, GLUCOSE (06/14/2024 9:55 PM EST) Glucometer, POC 152 65 - 199 mg/dL 06/14/2024 9:[address] [facility] Comment:Supplemental ranges: <140 mg/dL before meals <180 mg/dL all other times of the day. Blood CAPILLARY BLOOD / Unknown 06/14/2024 9:55 PM EST 06/14/2024 9:56 PM EST Bobby Loja MD POINT OF CARE TEST O NIKA Performing Organization Address City/[facility]/ZIP Co de Phone Number [facility] [place] [place] [address] * POC, GLUCOSE (06/14/2024 8:54 PM EST) Glucometer, POC 151 65 - 199 mg/dL 06/14/2024 8:[address] [facility] Comment:Supplemental ranges: <140 mg/dL before meals <180 mg/dL all other times of the day. Blood CAPILLARY BLOOD / Unknown 06/14/2024 8:54 PM EST 06/14/2024 8:54 PM EST Bobby Loja MD POINT OF CARE TEST O NIKA Performing Organization Address City/[facility]/ZIP Co de Phone Number [facility] [place] [place] [address] * POC, GLUCOSE (06/14/2024 7:51 PM EST) Glucometer, POC 169 65 - 199 mg/dL 06/14/2024 7:[address] [facility] Comment:Supplemental ranges: <140 mg/dL before meals <180 mg/dL all other times of the day. Blood CAPILLARY BLOOD / Unknown 06/14/2024 7:51 PM EST 06/14/2024 7:52 PM EST Bobby Loja MD POINT OF CARE TEST O RDERAPIETER Performing Organization Address [facility] Co de Phone Number [facility] [place] [address] * POC, GLUCOSE (06/14/2024 6:49 PM EST) Glucometer, POC 194 65 - 199 mg/dL 06/14/2024 6:[address] [facility] Comment:Supplemental ranges: <140 mg/dL before meals <180 mg/dL all other times of the day. Blood CAPILLARY BLOOD / Unknown 06/14/2024 6:49 PM EST 06/14/2024 6:50 PM EST Bobby Loja MD POINT OF CARE TEST O RDERABLES Performing Organization Address [facility] Co de Phone Number [facility] [place] [address] * (ABNORMAL) Hemoglobin (06/14/2024 6:19 PM EST) Hemoglobin 13.1(L) 13.7 - 16.5 g/dL 06/14/2024 7:[address] [facility] Blood VENOUS BLOOD SPECIMEN / Unknown Venipuncture / Unknown 06/14/2024 6:19 PM EST 06/14/2024 6:28 PM EST Bobby Loja MD HEMATOLOGY ORDERABLE S Performing Organization Address [facility] Co de Phone Number [facility] [place] [address] * Potassium (06/14/2024 6:19 PM EST) Potassium 3.9 3.5 - 5.0 mMol/L 06/14/2024 6:[address] [facility] Blood VENOUS BLOOD SPECIMEN / Unknown Venipuncture / Unknown 06/14/2024 6:19 PM EST 06/14/2024 6:28 PM EST Bobby Loja MD CHEMISTRY ORDERABLES [facility] [place] [address] * (ABNORMAL) POC, GLUCOSE (06/14/2024 6:03 PM EST) [facility] Glucometer, POC 201(H) 65 - 199 mg/dL 06/14/2024 6:[address] [facility] Comment:Supplemental ranges: <140 mg/dL before meals <180 mg/dL all other times of the day. Blood CAPILLARY BLOOD / Unknown 06/14/2024 6:03 PM EST 06/14/2024 6:03 PM EST Bobby Loja MD POINT OF CARE TEST O RDERABLES Performing Organization Address [facility]/ZIP Co de Phone Number [facility] [place] [address] * (ABNORMAL) Blood Gas, Arterial POC (06/14/2024 4:51 PM EST) [facility] pH, Arterial 7.32(L) 7.35 - 7.45 06/14/2024 4:52 PM [facility] PCO2, Arterial 46(H) 35 - 45 mmHg 06/14/2024 4:52 PM [facility] PO2, Arterial 85 85 - 104 mmHg 06/14/2024 4:52 PM [facility] Bicarbonate, Arterial 23.1 20.0 - 26.0 mmol/L 06/14/2024 4:52 PM [facility] Base Excess, Arterial -3.1(L) -3.0 - 3.0 mmol/L 06/14/2024 4:52 PM [facility] Hemoglobin, Arterial 14.3 13.7 - 16.5 g/dL 06/14/2024 4:52 PM [facility] Oxyhemoglobin, Arterial 94.7 94.0 - 97.0 % 06/14/2024 4:52 PM [facility] Carboxyhemoglobin , Arterial 0.6 % 06/14/2024 4:[address] [facility] Comment: Nonsmokers: 0.5-1.5% COHB ?? Smokers: Variable ??but usually less than 10% ?? Toxic: 20-30% COHB ?? Lethal: Greater than 60% COHB Methemoglobin, Arterial 0.0 <=1.5 % 06/14/2024 4:[address] [facility] Sodium, Arterial 138 135 - 145 mmol/L 06/14/2024 4:[address] [facility] Potassium, Arterial 4.1 3.5 - [...] TEST O RDERABLES [facility] [place] [address] * POC, GLUCOSE (06/14/2024 4:00 PM EST) [facility] Signature Glucometer, POC 184 65 - 199 mg/dL 06/14/2024 4:[address] [facility] Comment:Supplemental ranges: <140 mg/dL before meals <180 mg/dL all other times of the day. Blood CAPILLARY BLOOD / Unknown 06/14/2024 4:00 PM EST 06/14/2024 4:01 PM EST Bobby Loja MD POINT OF CARE TEST O RDERABLES [facility] [place] [address] * XR Chest One View (06/14/2024 3:05 PM EST) WORKSTATION ID [id number] RAD Anatomical Region Laterality Modality Chest N/A [...] who have questions please contact the health day care teacher that requested your imaging first. ? Narrative 06/14/2024 4:07 PM EST EXAMINATION: XR [...] patients who have questions please contactthe health day care teacher that requested your imaging first. Bobby Loja [...] 98 - 107 mmol/L 06/14/2024 2:53 PM [facility] Lactate, Arterial 1.1 0.5 - 2.2 mmol/L 06/14/2024 2:53 PM [facility] Fraction of Inspired Oxygen 100 [...] TEST O RDERABLES Performing Organization Address [facility] Co de Phone Number [facility] [place] [address] * EKG 12 Lead (06/14/2024 2:46 PM EST) Ventricular rate 80 BPM MUSE SYSTEM Atrial Rate 80 BPM MUSE SYSTEM P-R Interval 120 ms MUSE SYSTEM QRS Duration 108 ms MUSE SYSTEM Q-T Interval 454 ms MUSE SYSTEM QTC Calculated (Bezet) 523 ms MUSE SYSTEM Calculated P Lyons 70 degrees MUSE SYSTEM Calculated R Lyons 56 degrees MUSE SYSTEM Calculated T Lyons 50 degrees MUSE SYSTEM INTERPRETATION AV dual-paced rhythm Abnormal ECG When compared with ECG of 03-JUN-2024 01:45, Vent. rate has increased BY ??17 BPM Confirmed by MD Marisol, Shaheen ([id number]) on 06/15/2024 1:57:23 PM MUSE SYSTEM 06/14/2024 2:46 PM EST 06/15/2024 1:57 PM EST Bobby Loja MD ECG ORDERABLES Performing Organization Address City/[facility]/ZIP Co de Phone Number MUSE SYSTEM * Prepare RBC (06/14/2024 2:27 PM EST) Status Information Returned [facility] Product Identification RBC [facility] Unit [facility] [id number] [facility] Product Code [id number] [facility] Unit Blood Type OPOS [facility] Specimen Expiration Date [facility] Volulme 350 [facility] Issue Date / Time [facility] Status Information Returned [facility] Product Identification RBC [facility] Unit Number [id number] [facility] Product Code [id number] [facility] Unit Blood Type OPOS [facility] Specimen Expiration Date [facility] Volulme 350 [facility] Issue Date / Time [facility] Blood 06/14/2024 6:2 5 AM EST Haja Byrnes MD BLOOD BANK PRODUCT O RDERABLES [facility] [place] [address] * (ABNORMAL) Cooximetry, POC (06/14/2024 1:52 PM [...] TEST O NIKA [facility] [place] [address] * (ABNORMAL) Blood Gas, Arterial POC (06/14/2024 12:47 PM EST) pH, Arterial 7.33(L) 7.35 - 7.45 06/14/2024 12:[address] [facility] PCO2, [...] 135 - 145 mmol/L 06/14/2024 12:48 PM [facility] Potassium, Arterial 5.0 3.5 - 5.0 mmol/L 06/14/2024 12:[address] [facility] Chloride, Arterial 106 98 - 107 mmol/L 06/14/2024 12:[address] [facility] Lactate, Arterial 1.4 0.5 - 2.2 mmol/L 06/14/2024 12:[address] [facility] IONIZED CALCIUM, ARTERIAL 1.09(L) 1.15 - 1.33 mmol/L 06/14/2024 12:[address] [facility] Glucose, Arterial 157 65 - 199 mg/dL 06/14/2024 12:[address] [facility] Comment:Glucose Concentratio n >=200 mg/dL plus symptoms is consistent with Diabetes Mellitus. Blood ARTERIAL BLOOD / Unknown 06/14/2024 12:47 PM EST 06/14/2024 12:48 PM EST Haja Byrnes MD POINT OF CARE TEST O RDERABLES [facility] [place] [address] * (ABNORMAL) Cooximetry, POC (06/14/2024 12:42 PM EST) pO2, Coox 71 mmHg 06/14/2024 12:45 PM [facility] Hemoglobin, Coox 11.6(L) 13.7 - [...] TEST O RDERABLES Performing Organization Address City/[facility]/ZIP Co de Phone Number [facility] [place] [address] * (ABNORMAL) Platelet count (06/14/2024 12:30 PM EST) Platelet 73(L) 145 - 357 x10(3)/mcL 06/14/2024 12:[address] [facility] Blood ARTERIAL BLOOD / Unknown 06/14/2024 12:30 PM EST Comment:Pre-op diagnosis: CAD Bobby Loja MD HEMATOLOGY ORDERABLE S Performing Organization Address [facility] Co de Phone Number [facility] [place] [address] * (ABNORMAL) Hemoglobin and Hematocrit, blood (06/14/2024 [...] HEMATOLOGY ORDERABLE S Performing Organization Address [facility]/ZIP Co de Phone Number [facility] [place] [address] * APTT (06/14/2024 12:30 PM EST) Partial [...] HEMATOLOGY ORDERABLE S Performing Organization Address [facility] Co de Phone Number [facility] [place] [address] * (ABNORMAL) Prothrombin Time (06/14/2024 12:30 PM [...] HEMATOLOGY ORDERABLE S Performing Organization Address [facility] Co de Phone Number [facility] [place] [address] * Fibrinogen (06/14/2024 12:30 PM EST) Fibrinogen 211 200 - 393 mg/dL 06/14/2024 12:57 PM [facility] Comment: A fibrinogen level >100 mg/dL is adequate for hemostasis in most patients without underlying bleeding disorders. Blood ARTERIAL BLOOD / Unknown 06/14/2024 12:30 PM EST 06/14/2024 12:42 PM EST Comment:Pre-op diagnosis: CAD Bobby Loja MD HEMATOLOGY ORDERABLE S [facility] [place] [address] * (ABNORMAL) Blood Gas, Arterial POC (06/14/2024 12:15 PM EST) pH, Arterial 7.38 7.35 - 7.45 06/14/2024 12:16 PM [facility] PCO2, Arterial 40 35 - 45 mmHg 06/14/2024 12:16 PM [facility] Bicarbonate, Arterial 22.9 20.0 - 26.0 mmol/L 06/14/2024 12:16 PM [facility] Base Excess, Arterial -2.3 -3.0 - 3.0 mmol/L 06/14/2024 12:16 PM [facility] Hemoglobin, Arterial 11.4(L) 13.7 - 16.5 g/dL 06/14/2024 12:16 PM [facility] Oxyhemoglobin, Arterial 98.8(H) 94.0 - 97.0 % 06/14/2024 12:16 PM [facility] Carboxyhemoglobin [...] TEST O RDERABLES [facility] [place] [address] * (ABNORMAL) Blood Gas, Arterial POC (06/14/2024 11:51 AM EST) pH, Arterial 7.40 7.35 - 7.45 06/14/2024 11:52 AM [facility] PCO2, Arterial 41 35 - [...] TEST O RDERABLES [facility] [place] [address] * (ABNORMAL) Blood Gas, Arterial POC (06/14/2024 11:27 AM [facility]) pH, Arterial 7.38 7.35 - 7.45 [...] - 2.2 mmol/L 06/14/2024 11:[address] [facility] IONIZED CALCIUM, ARTERIAL 1.03(L) 1.15 - 1.33 mmol/L 06/14/2024 11:[address] [facility] Glucose, Arterial 147 65 - 199 mg/dL 06/14/2024 11:[address] [facility] Comment:Glucose Concentratio n >=200 mg/dL plus symptoms is consistent with Diabetes Mellitus. Blood ARTERIAL BLOOD / Unknown 06/14/2024 11:27 AM EST 06/14/2024 11:28 AM EST Haja Byrnes MD POINT OF CARE TEST O RDERABLES Performing Organization Address City/[facility]/ZIP Co de Phone Number [facility] [place] [address] * (ABNORMAL) Scan, Peripheral Blood (06/14/2024 11:23 AM EST) RBC Morphology Abnormal 06/14/2024 11:59 AM [facility] Platelet Estimate Decreased(A) Normal 06/14/2024 11:[address] [facility] Talpa cells 1-5 /HPF 06/14/2024 11:59 AM [facility] Blood ARTERIAL BLOOD / Unknown 06/14/2024 11:23 AM EST 06/14/2024 11:27 AM EST Bobby Loja MD HEMATOLOGY ORDERABLE S [facility] [place] [address] * (ABNORMAL) Platelet count (06/14/2024 11:23 AM EST) Platelet 86(L) 145 - 357 x10(3)/mcL 06/14/2024 11:[address] [facility] Blood ARTERIAL BLOOD / Unknown 06/14/2024 11:23 AM EST Comment:Pre-op diagnosis: CAD Bobby Loja MD HEMATOLOGY ORDERABLE S [facility] [place] [address] * (ABNORMAL) Hemoglobin and Hematocrit, blood (06/14/2024 [...] HEMATOLOGY ORDERABLE S [facility] [place] [address] * (ABNORMAL) Blood Gas, Arterial POC (06/14/2024 [...] - 26.0 mmol/L 06/14/2024 10:[address] [facility] Base Excess, Arterial -0.5 -3.0 - 3.0 mmol/L 06/14/2024 10:[address] [facility] Hemoglobin, Arterial 11.9(L) 13.7 - [...] TEST O RDERABLES [facility] [place] [address] * (ABNORMAL) Blood Gas, Arterial POC (06/14/2024 [...] TEST O RDERABLES [facility] [place] [address] * (ABNORMAL) Blood Gas, Arterial POC (06/14/2024 [...] CARE TEST O RDERABLES Performing Organization Address City/State/[facility] Co de Phone Number [facility] [place] [address] * Surgical Pathology (06/14/2024 9:53 AM EST) Case Report Surgical Pathology Report ? Case: [id number] ? Authorizing Provider: ??Bobby Loja MD ? Collected: ? 06/14/2024 0953 ? Ordering Location: ? Main Operating Room [facility]en ?? Received: ?06/14/2024 1413 ? [facility] ? Hospital ? Pathologist: ? Sandra Salas, MD ? Specimens: ?? A) - Soft Tissue Mass, mediastinal mass ? B) - Heart, Atrial Appendage, Left ? 06/18/2024 10:[address] [facility] Final Diagnosis A. Soft Tissue [...] Inking: External surface inked black Sections/Process ing: Registered Medical Assistant sections in 4 cassettes labeled A1-A4. cmk B. Heart, Atrial Appendage, Left, . B - Labeled/Fixative : Heart, atrial appendage, left, fresh. Quantity/Size: Single, 3.3 x 1.5 x 0.8 cm. Tissue Description: Portion of heart tissue consisting of rodriguez-white, semitranslucent, smooth endocardium with rodriguez-brown muscular myocardium and thin translucent epicardium with adherent adipose tissue. No areas of discoloration identified. Sections/Process ing: Registered Medical Assistant sections in 1 cassette labeled B1. [...] PATHOLOGY/CYTOLOGY O RDERABLES [facility] [place] [address] * Cooximetry, POC (06/14/2024 9:00 AM EST) pO2, Coox 57 mmHg 06/14/2024 9:04 AM [facility] PO2 Corrected, COOX 50 mmHg 06/14/2024 9:04 AM [facility] Hemoglobin, Coox 14.3 13.7 - 16.5 g/dL 06/14/2024 9:04 AM [facility] Oxyhemoglobin, Coox 86.2 % 06/14/2024 9:04 AM [facility] Carboxyhemoglobi n, Coox 0.3 % 06/14/2024 9:04 AM [facility] Comment: Nonsmokers: 0.5-1.5% COHB ?? Smokers: Variable ??but usually less than 10% ?? Toxic: 20-30% COHB ?? Lethal: Greater than 60% COHB Methemoglobin, Coox 0.3 <=1.5 % 06/14/2024 9:04 AM [facility] Temperature Coox 35.2 C 06/14/20 24 9:04 AM [facility] Blood (Mixed Venous) 06/14/2024 9:00 AM EST 06/14/2024 9:04 AM EST Haja Byrnes MD POINT OF CARE TEST O RDERABLES Performing Organization Address City/State/[facility] Co de Phone Number [facility] [place] [address] * (ABNORMAL) Blood Gas, Arterial POC (06/14/2024 [...] 65 - 199 mg/dL 06/14/2024 8:40 AM [facility] Comment:Glucose Concentratio n >=200 mg/dL plus symptoms is consistent with Diabetes Mellitus. Blood ARTERIAL BLOOD / Unknown 06/14/2024 8:39 AM EST 06/14/2024 8:40 AM EST Haja Byrnes MD POINT OF CARE TEST O RDERABLES [facility] [place] [address] * Transesophageal Echo/OR (06/14/2024 7:20 AM EST) Anatomical Region Laterality Modality Cardiac Other 06/14/2024 7:20 AM EST Narrative 06/14/2024 4:36 PM EST Version: 2 Study ID: [id number] [address] [place] [address] ?OR Transesophageal Echo Report Name: GEORGE MEHTA ? Study Date: 06/14/2024, 7: 20 AM ?Patient Location: ^OR16^A : 1955 Age: 69 Years Gender: Male Ordering Physician: BOBBY LOJA Referring Physician: NEHAL QUINTERO ?Conclusions This AKREN is done at the request of CT [...] of this mass after consultation with other medical economics consultant experts and the decision was made by [...] MD - 06/14/2024 Version: 2 Study ID: [id number] [address] [place] [id number] ORTransesophageal Echo Report Name: GEORGE EMHTA Study Date: 06/14/2024,7: 20 AM Patient Location:^CO16^A : 1955 Age: 69 Years Gender: Male [...] of this mass after consultation with other medical economics consultant experts and thedecision was made by surgeon [...] * POC, GLUCOSE (06/14/2024 7:11 AM EST) [facility] Signature Glucometer, POC 111 65 - 199 mg/dL 06/14/2024 7:[address] [facility] Comment:Supplemental ranges: <140 mg/dL before meals <180 mg/dL all other times of the day. Blood CAPILLARY BLOOD / Unknown 06/14/2024 7:11 AM EST 06/14/2024 7:12 AM EST Haja Byrnes MD POINT OF CARE TEST Abimael MAHER Performing Organization Address [facility] Co de Phone Number [facility] [place] [address] * POC, GLUCOSE (06/14/2024 4:30 AM EST) Glucometer, POC 85 65 - 199 mg/dL 06/14/2024 4:[address] [facility] Comment:Supplemental ranges: <140 mg/dL before meals <180 mg/dL all other times of the day. Blood CAPILLARY BLOOD / Unknown 06/14/2024 4:30 AM EST 06/14/2024 4:30 AM EST Haja Byrnes MD POINT OF CARE TEST Abimael MAHER Performing Organization Address [facility] de Phone Number [facility] [address] * (ABNORMAL) Heparin (unfractionated) Level (06/14/2024 12:12 [...] HEMATOLOGY ORDERABLE S [facility] [place] [address] * (ABNORMAL) CBC (with Diff) (06/14/2024 12:12 [...] - 0.10 x10(3)/mc L 06/14/2024 12:38 AM [facility] Immature Gran % 0.6 % 12:38 AM [facility] Immature Gran Absolute 0.06(H) 0.00 - 0.04 x10(3)/mc L 06/14/2024 12:38 AM [facility] Blood VENOUS BLOOD SPECIMEN / Unknown Venipuncture / Unknown 06/14/2024 12:12 AM EST 06/14/2024 12:29 AM EST Shahnaz Scanlon MD HEMATOLOGY ORDERABLE S Performing Organization Address City/[facility]/ZIP Co de Phone Number [facility] [place] [address] * Magnesium (06/14/2024 12:12 AM EST) Magnesium 0.74 0.69 - 1.07 mMol/L 06/14/2024 12:57 AM [facility] Blood VENOUS BLOOD SPECIMEN / Unknown Venipuncture / Unknown 06/14/2024 12:12 AM EST 06/14/2024 12:29 AM EST Shahnaz Scanlon MD CHEMISTRY ORDERABLES Performing Organization Address City/[facility]/ZIP Co de Phone Number [facility] [place] [address] * (ABNORMAL) Basic Metabolic Panel (06/14/2024 12:12 AM EST) Glucose 97 65 - 199 mg/dL 06/14/2024 12:57 AM [facility] Comment:Glucose Concentratio n >=200 mg/dL plus symptoms is consistent with Diabetes Mellitus. Blood Urea Nitrogen 25(H) 10 - 20 mg/dL 06/14/2024 12:57 AM [facility] Creatinine 1.14 0.80 - 1.50 [...] MD CHEMISTRY ORDERABLES [facility] [place] [address] * Scan Doc: Implantable Devices (06/14/2024 12:00 AM EST) Narrative 06/14/2024 12:00 AM EST Ordered by an unspecified provider. Scanning Provider MEDIA MGR SCAN EXT O RDR/RSLT * POC, GLUCOSE (06/13/2024 11:12 PM EST) [facility] Signature Glucometer, POC 104 65 - 199 mg/dL 06/13/2024 11:[address] [facility] Comment:Supplemental ranges: <140 mg/dL before meals <180 mg/dL all other times of the day. Blood CAPILLARY BLOOD / Unknown 06/13/2024 11:12 PM EST 06/13/2024 11:13 PM EST Haja Byrnes MD POINT OF CARE TEST O NIKA Performing Organization Address City/[facility]/ZIP Co de Phone Number [facility] [place] [address] * (ABNORMAL) POC, GLUCOSE (06/13/2024 8:03 PM EST) Glucometer, POC 206(H) 65 - 199 mg/dL 06/13/2024 8:[address] [facility] Comment:Supplemental ranges: <140 mg/dL before meals <180 mg/dL all other times of the day. Blood CAPILLARY BLOOD / Unknown 06/13/2024 8:03 PM EST 06/13/2024 8:03 PM EST Haja Byrnes MD POINT OF CARE TEST O NIKA Performing Organization Address City/[facility] Co de Phone Number [facility] [place] [address] * Heparin (unfractionated) Level (06/13/2024 4:11 PM [...] HEMATOLOGY ORDERABLE S Performing Organization Address City/[facility]/ZIP Co de Phone Number [facility] [place] [address] * ABORH RECHECK (06/13/2024 4:11 PM EST) ABORH Recheck O POSITIVE 06/13/2024 4:50 PM EST [facility] Blood VENOUS BLOOD SPECIMEN / Unknown Venipuncture / Unknown 06/13/2024 4:11 PM EST 06/13/2024 4:19 PM EST Haja Byrnes MD BLOOD BANK LAB ORDER EUSEBIA Performing Organization Address [facility] Co de Phone Number [facility] [place] [address] * (ABNORMAL) POC, GLUCOSE (06/13/2024 4:09 PM EST) Glucometer, POC 216(H) 65 - 199 mg/dL 06/13/2024 4:[address] [facility] Comment:Supplemental ranges: <140 mg/dL before meals <180 mg/dL all other times of the day. Blood CAPILLARY BLOOD / Unknown 06/13/2024 4:09 PM EST 06/13/2024 4:10 PM EST Haja Byrnes MD POINT OF CARE TEST O RDERABLES Performing Organization Address City/[facility]/ZIP Co de Phone Number [facility] [place] [address] * Type and screen ([facility]/CGP/RAFITA) (06/13/2024 11:53 AM EST) ABORH Type O POSITIVE 06/13/2024 1:16 PM EST [facility] PATIENT HISTORY Not Found 06/13/2024 1:16 PM EST [facility] Expires at [id number] on: 06/16/2024 06/13/2024 1:16 PM EST [facility] ANTIBODY SCREEN AUTOMATED Negative 06/13/2024 1:16 PM EST [facility] T&S only valid at [facility] 06/13/2024 1:16 PM EST [facility] Blood VENOUS BLOOD SPECIMEN / Unknown Venipuncture / Unknown 06/13/2024 11:53 AM EST 06/13/2024 11:56 AM EST Narrative [facility] - 06/13/2024 1:16 PM EST This Type and Screen result is only valid at the [facility] Haja Byrnes MD BLOOD BANK LAB ORDER EUSEBIA [facility] [place] [address] * POC, GLUCOSE (06/13/2024 11:50 AM EST) [facility] Glucometer, POC 178 65 - 199 mg/dL 06/13/2024 11:[address] [facility] Comment:Supplemental ranges: <140 mg/dL before meals <180 mg/dL all other times of the day. Blood CAPILLARY BLOOD / Unknown 06/13/2024 11:50 AM EST 06/13/2024 11:51 AM EST Haja Byrnes MD POINT OF CARE TEST O RDERABLES [facility] [place] [address] * XR Chest One View (06/13/2024 10:35 AM EST) WORKSTATION ID [id number] RAD Anatomical Region Laterality Modality Chest N/A [...] who have questions please contact the health day care teacher that requested your imaging first. ? [...] patients who have questions please contactthe health day care teacher that requested your imaging first. Haja Byrnes MD IMG DX ORDERABLES * CARDIAC CATHETERIZATION (06/13/2024 9:02 AM EST) Anatomical Region Laterality Modality Other Narrative 06/15/2024 9:07 AM EST ?[facility] ? Cardiac Catheterization/Intervention Report ? Patient Name: George Mehta ? Procedure Date: 06/13/2024 ? A #: [id number] ? Primary Physician: Nuha Shen I ? Case #: [id number] ? File Name: [id number] ? Catheterization Order Number: [id number] ? [facility] ? Final Report [place], [place] ? Patient Name: ? George L. Tyson ? ID#: ?[id number] ? : ?1955 ? Procedure Date: ? [...] ?was designated as ASA Class IV. The [facility] clinical frailty scale is 5: [...] was Urgent. The indication for ?the labor relations officer visit is ACS greater than 24 hrs [...] vascular ?ultrasound and IABP insertion in labor relations officer. ? Nuha Shen M.D. ? Electronically Signed by: Nuha Shen M.D. ? Report Finalized: 06/15/2024 ??08:59 ? Procedure Note Nuha Shen MD - 06/15/2024 [facility] Cardiac Catheterization/Intervention Report Patient Name: George Mehta Procedure Date: 06/13/2024 A #: [id number] Primary Physician: Nuha Shen I Case #: [id number] File Name: [id number] Catheterization Order Number: [id number] [facility] FinalReport [place], [place] Patient Name: George Mehta ID#:[id number] :1955 Procedure Date: June 13, 2024 Case [...] was designated as ASA Class IV. The [facility] clinical frailty scale is5: Mildly [...] procedure was Urgent. The indicationfor the labor relations officer visit is ACS greater than 24 hrs [...] angiography,vascular ultrasound and IABP insertion in labor relations officer. Nuha Shen M.D. Electronically Signed by: Nuha [...] MD CHEMISTRY ORDERABLES Performing Organization Address City/[facility]/ZIP Co de Phone Number [facility] [place] [address] * POC, GLUCOSE (06/13/2024 7:41 AM EST) Glucometer, POC 126 65 - 199 mg/dL 06/13/2024 7:[address] [facility] Comment:Supplemental ranges: <140 mg/dL before meals <180 mg/dL all other times of the day. Blood CAPILLARY BLOOD / Unknown 06/13/2024 7:41 AM EST 06/13/2024 7:41 AM EST Ethel Carrillo MD POINT OF CARE TEST O RDERABLES Performing Organization Address City/[facility]/ZIP Co de Phone Number [facility] [place] [address] * POC, GLUCOSE (06/13/2024 3:25 AM EST) Glucometer, POC 99 65 - 199 mg/dL 06/13/2024 3:[address] [facility] Comment:Supplemental ranges: <140 mg/dL before meals <180 mg/dL all other times of the day. Blood CAPILLARY BLOOD / Unknown 06/13/2024 3:25 AM EST 06/13/2024 3:25 AM EST Ethel Carrillo MD POINT OF CARE TEST O RDERABLES Performing Organization Address [facility] Co de Phone Number [facility] [place] [address] * Heparin (unfractionated) Level (06/13/2024 2:26 AM [...] HEMATOLOGY ORDERABLE S Performing Organization Address [facility]/ZIP Co de Phone Number [facility] [place] [address] * (ABNORMAL) CBC (with Diff) (06/13/2024 2:26 AM EST) White Blood Cell 9.98(H) 4.00 - 9.50 x10(3)/mc L 06/13/2024 2:[address] [facility] Red Blood Cell 5.11 4.58 [...] - 6.10 x10(3)/mc L 06/13/2024 2:41 AM [facility] Lymph % 35.3 % 06/13/2024 2:41 AM [facility] Lymph Absolute 3.52(H) 0.90 - 3.20 x10(3)/mc L 06/13/2024 2:[address] [facility] Monocyte % 10.1 % 06/13/2024 2:41 AM [facility] Monocyte Absolute 1.01(H) 0.30 - 0.90 x10(3)/mc L 06/13/2024 2:41 AM [facility] Eos % 4.4 % 06/13/2024 2:41 AM [facility] Eos Absolute 0.44(H) 0.00 - 0.40 x10(3)/mc L 06/13/2024 2:41 AM [facility] Basophil % 0.9 % 06/13/2024 2:41 AM [facility] Baso Absolute 0.09 0.00 - 0.10 x10(3)/mc L 06/13/2024 2:41 AM [facility] Immature Gran % 0.5 % 2:41 AM [facility] Immature Gran Absolute 0.05(H) 0.00 - 0.04 x10(3)/mc L 06/13/2024 2:41 AM [facility] Blood VENOUS BLOOD SPECIMEN / Unknown Venipuncture / Unknown 06/13/2024 2:26 AM EST 06/13/2024 2:32 AM EST Shahnaz Scanlon MD HEMATOLOGY ORDERABLE S [facility] [place] [address] * Magnesium (06/13/2024 2:26 AM EST) Magnesium 0.78 0.69 - 1.07 mMol/L 06/13/2024 2:[address] [facility] Blood VENOUS BLOOD SPECIMEN / Unknown Venipuncture / Unknown 06/13/2024 2:26 AM EST 06/13/2024 2:31 AM EST Shahnaz Scanlon MD CHEMISTRY ORDERABLES [facility] [place] [address] * (ABNORMAL) Basic Metabolic Panel (06/13/2024 2:26 [...] MD CHEMISTRY ORDERABLES Performing Organization Address [facility]/ZIP Co de Phone Number [facility] [place] [address] * POC, GLUCOSE (06/12/2024 11:53 PM EST) Glucometer, POC 141 65 - 199 mg/dL 06/12/2024 11:[address] [facility] Comment:Supplemental ranges: <140 mg/dL before meals <180 mg/dL all other times of the day. Blood CAPILLARY BLOOD / Unknown 06/12/2024 11:53 PM EST 06/12/2024 11:54 PM EST Ethel Carrillo MD POINT OF CARE TEST O RDERABLES Performing Organization Address [facility] Co de Phone Number [facility] [place] [address] * POC, GLUCOSE (06/12/2024 7:32 PM EST) Glucometer, POC 158 65 - 199 mg/dL 06/12/2024 7:[address] [facility] Comment:Supplemental ranges: <140 mg/dL before meals <180 mg/dL all other times of the day. Blood CAPILLARY BLOOD / Unknown 06/12/2024 7:32 PM EST 06/12/2024 7:32 PM EST Ethel Carrillo MD POINT OF CARE TEST O RDERABLES Performing Organization Address City/[facility]/ZIP Co de Phone Number [facility] [address] * POC, GLUCOSE (06/12/2024 3:41 PM EST) Glucometer, POC 113 65 - 199 mg/dL 06/12/2024 3:[address] [facility] Comment:Supplemental ranges: <140 mg/dL before meals <180 mg/dL all other times of the day. Blood CAPILLARY BLOOD / Unknown 06/12/2024 3:41 PM EST 06/12/2024 3:41 PM EST Ethel Carrillo MD POINT OF CARE TEST O RDERAPIETER Performing Organization Address City/[facility]/ZIP Co de Phone Number [facility] [place] [address] * Potassium (06/12/2024 2:19 PM EST) Potassium 4.5 3.5 - 5.0 mMol/L 06/12/2024 2:[address] [facility] Blood VENOUS BLOOD SPECIMEN / Unknown Venipuncture / Unknown 06/12/2024 2:19 PM EST 06/12/2024 2:23 PM EST Shahnaz Scanlon MD CHEMISTRY ORDERABLES Performing Organization Address [facility] Co de Phone Number [facility] [place] [address] * (ABNORMAL) POC, GLUCOSE (06/12/2024 11:21 AM EST) Glucometer, POC 207(H) 65 - 199 mg/dL 06/12/2024 11:[address] [facility] Comment:Supplemental ranges: <140 mg/dL before meals <180 mg/dL all other times of the day. Blood CAPILLARY BLOOD / Unknown 06/12/2024 11:21 AM EST 06/12/2024 11:22 AM EST Ethel Carrillo MD POINT OF CARE TEST O RDERABLES Performing Organization Address City/[facility]/ZIP Co de Phone Number [facility] [address] * POC, GLUCOSE (06/12/2024 8:00 AM EST) Glucometer, POC 169 65 - 199 mg/dL 06/12/2024 8:[address] [facility] Comment:Supplemental ranges: <140 mg/dL before meals <180 mg/dL all other times of the day. Blood CAPILLARY BLOOD / Unknown 06/12/2024 8:00 AM EST 06/12/2024 8:01 AM EST Ethel Carrillo MD POINT OF CARE TEST O NIKA Performing Organization Address City/[facility]/ZIP Co de Phone Number [facility] [place] [address] * POC, GLUCOSE (06/12/2024 4:25 AM EST) Glucometer, POC 132 65 - 199 mg/dL 06/12/2024 4:[address] [facility] Comment:Supplemental ranges: <140 mg/dL before meals <180 mg/dL all other times of the day. Blood CAPILLARY BLOOD / Unknown 06/12/2024 4:25 AM EST 06/12/2024 4:26 AM EST Ethel Carrillo MD POINT OF CARE TEST Abimael MAHER Performing Organization Address City/[facility]/ZIP Co de Phone Number [facility] [place] [address] * Heparin (unfractionated) Level (06/12/2024 3:03 AM [...] HEMATOLOGY ORDERABLE S [facility] [place] [address] * (ABNORMAL) CBC (with Diff) (06/12/2024 3:03 AM EST) White Blood Cell 9.69(H) 4.00 - 9.50 x10(3)/mc L 06/12/2024 3:36 AM [facility] Red Blood Cell 5.05 4.58 - 5.54 x10(6)/mc L 06/12/2024 3:36 AM [facility] Hemoglobin 15.2 13.7 - 16.5 g/dL 06/12/2024 3:36 AM [facility] Hematocrit 46.6 40.5 - 48.5 [...] HEMATOLOGY ORDERABLE S Performing Organization Address [facility]/ZIP Co de Phone Number [facility] [place] [address] * Magnesium (06/12/2024 3:03 AM EST) Magnesium 0.79 0.69 - 1.07 mMol/L 06/12/2024 4:01 AM [facility] Blood VENOUS BLOOD SPECIMEN / Unknown Venipuncture / Unknown 06/12/2024 3:03 AM EST 06/12/2024 3:30 AM EST Shahnaz Scanlon MD CHEMISTRY ORDERABLES Performing Organization Address City/[facility] Co de Phone Number [facility] [place] [address] * (ABNORMAL) Basic Metabolic Panel (06/12/2024 3:03 [...] MD CHEMISTRY ORDERABLES [facility] [place] [address] * POC, GLUCOSE (06/11/2024 11:56 PM EST) Glucometer, POC 135 65 - 199 mg/dL 06/11/2024 11:56 PM [facility] Comment:Supplemental ranges: <140 mg/dL before meals <180 mg/dL all other times of the day. Blood CAPILLARY BLOOD / Unknown 06/11/2024 11:56 PM EST 06/11/2024 11:56 PM EST Ethel Carrillo MD POINT OF CARE TEST O NIKA Performing Organization Address [facility] Co de Phone Number [facility] [place] [address] * (ABNORMAL) POC, GLUCOSE (06/11/2024 8:25 PM EST) Glucometer, POC 210(H) 65 - 199 mg/dL 06/11/2024 8:[address] [facility] Comment:Supplemental ranges: <140 mg/dL before meals <180 mg/dL all other times of the day. Blood CAPILLARY BLOOD / Unknown 06/11/2024 8:25 PM EST 06/11/2024 8:26 PM EST Ethel Carrillo MD POINT OF CARE TEST O NIKA Performing Organization Address [facility] Co de Phone Number [facility] [place] [address] * POC, GLUCOSE (06/11/2024 4:24 PM EST) Glucometer, POC 81 65 - 199 mg/dL 06/11/2024 4:[address] [facility] Comment:Supplemental ranges: <140 mg/dL before meals <180 mg/dL all other times of the day. Blood CAPILLARY BLOOD / Unknown 06/11/2024 4:24 PM EST 06/11/2024 4:25 PM EST Ethel Carrillo MD POINT OF CARE TEST O NIKA Performing Organization Address [facility] Co de Phone Number [facility] [place] [address] * (ABNORMAL) POC, GLUCOSE (06/11/2024 11:08 AM EST) Glucometer, POC 233(H) 65 - 199 mg/dL 06/11/2024 11:[address] [facility] Comment:Supplemental ranges: <140 mg/dL before meals <180 mg/dL all other times of the day. Blood CAPILLARY BLOOD / Unknown 06/11/2024 11:08 AM EST 06/11/2024 11:08 AM EST Ethel Carrillo MD POINT OF CARE TEST O NIKA Performing Organization Address [facility] Co de Phone Number [facility] [place] [address] * POC, GLUCOSE (06/11/2024 7:48 AM EST) Glucometer, POC 184 65 - 199 mg/dL 06/11/2024 7:[address] [facility] Comment:Supplemental ranges: <140 mg/dL before meals <180 mg/dL all other times of the day. Blood CAPILLARY BLOOD / Unknown 06/11/2024 7:48 AM EST 06/11/2024 7:49 AM EST Melida Valdes MD POINT OF CARE TEST Abimael MAHER Performing Organization Address [facility] de Phone Number [facility] [place] [address] * Heparin (unfractionated) Level (06/11/2024 5:31 AM [...] HEMATOLOGY ORDERABLE S Performing Organization Address City/[facility]/ZIP Co de Phone Number [facility] [place] [address] * POC, GLUCOSE (06/11/2024 3:57 AM EST) Glucometer, POC 132 65 - 199 mg/dL 06/11/2024 3:[address] [facility] Comment:Supplemental ranges: <140 mg/dL before meals <180 mg/dL all other times of the day. Blood CAPILLARY BLOOD / Unknown 06/11/2024 3:57 AM EST 06/11/2024 3:58 AM EST Melida Valdes MD POINT OF CARE TEST O RDERABLES Performing Organization Address [facility] Co de Phone Number [facility] [place] [address] * (ABNORMAL) CBC (with Diff) (06/11/2024 2:13 AM EST) White Blood Cell 9.91(H) 4.00 - 9.50 x10(3)/mc L 06/11/2024 2:[address] [facility] Red Blood Cell 5.13 4.58 - 5.54 x10(6)/mc L 06/11/2024 2:[address] [facility] Hemoglobin 15.3 13.7 - 16.5 g/dL 06/11/2024 2:[address] [facility] Hematocrit 47.5 40.5 - 48.5 % 06/11/2024 2:[address] [facility] Mean Cell Volume 92.6 82.9 [...] 0.90 x10(3)/mc L 06/11/2024 2:[address] [facility] Eos % 4.1 % 06/11/2024 [...] HEMATOLOGY ORDERABLE S [facility] [place] [address] * Magnesium (06/11/2024 2:13 AM EST) Magnesium 0.83 0.69 - 1.07 mMol/L 06/11/2024 2:[address] [facility] Blood VENOUS BLOOD SPECIMEN / Unknown Venipuncture / Unknown 06/11/2024 2:13 AM EST 06/11/2024 2:19 AM EST Shahnaz Scanlon MD CHEMISTRY ORDERABLES [facility] [place] [address] * (ABNORMAL) Basic Metabolic Panel (06/11/2024 2:13 AM EST) Glucose 148 65 - 199 mg/dL 06/11/2024 2:51 AM [facility] Comment:Glucose Concentratio n >=200 mg/dL plus symptoms is consistent with Diabetes Mellitus. Blood Urea Nitrogen 24(H) 10 - 20 mg/dL 06/11/2024 2:51 AM [facility] Creatinine 1.06 0.80 - 1.50 mg/dL 06/11/2024 2:51 AM [facility] Sodium 134(L) 135 - 145 mMol/L 06/11/2024 2:51 AM [facility] Potassium 4.1 3.5 - 5.0 mMol/L 06/11/2024 2:51 AM [facility] Chloride 96(L) 98 - 107 mMol/L 06/11/2024 2:51 AM [facility] Carbon Dioxide 28 22 - 31 mMol/L 06/11/2024 2:51 AM [facility] Anion Gap 10 5 - 15 mMol/L 06/11/2024 2:51 AM [facility] Calcium 9.4 8.5 - 10.5 mg/dL 06/11/2024 2:51 AM [facility] Est Glomerular Filtration Rate - Male 77 mL/min/1. 73 m?? 06/11/2024 2:51 AM [facility] Comment: [...] MD CHEMISTRY ORDERABLES Performing Organization Address [facility] Co de Phone Number [facility] [place] [address] * POC, GLUCOSE (06/11/2024 12:50 AM EST) Glucometer, POC 144 65 - 199 mg/dL 06/11/2024 12:[address] [facility] Comment:Supplemental ranges: <140 mg/dL before meals <180 mg/dL all other times of the day. Blood CAPILLARY BLOOD / Unknown 06/11/2024 12:50 AM EST 06/11/2024 12:51 AM EST Melida Valdes MD POINT OF CARE TEST O RDBECKIE Performing Organization Address [facility] Co de Phone Number [facility] [place] [address] * (ABNORMAL) POC, GLUCOSE (06/10/2024 7:22 PM EST) Glucometer, POC 236(H) 65 - 199 mg/dL 06/10/2024 7:[address] [facility] Comment:Supplemental ranges: <140 mg/dL before meals <180 mg/dL all other times of the day. Blood CAPILLARY BLOOD / Unknown 06/10/2024 7:22 PM EST 06/10/2024 7:22 PM EST Melida Valdes MD POINT OF CARE TEST O NIKA Performing Organization Address City/[facility]/ZIP Co de Phone Number [facility] [place] [address] * (ABNORMAL) Blood Gas, Venous (06/10/2024 5:42 PM EST) pH, Venous 7.34 7.32 - 7.42 06/10/2024 5:[address] [facility] PCO2, Venous 52 38 - 58 mmHg 06/10/2024 5:[address] [facility] PO2, Venous 24 16 - [...] 0.5 - 2.2 mmol/L 06/10/2024 5:50 PM [facility] Blood Gas Source Venous 06/10/20 5:[address] [facility] Blood VENOUS BLOOD SPECIMEN / Unknown Blood Gas Venous / Unknown 06/10/2024 5:42 PM EST 06/10/2024 5:47 PM EST Melida Valdes MD CHEMISTRY ORDERABLES Performing Organization Address City/[facility]/ZIP Co de Phone Number [facility] [place] [place] [address] * POC, GLUCOSE (06/10/2024 5:35 PM EST) Glucometer, POC 123 65 - 199 mg/dL 06/10/2024 5:[address] [facility] Comment:Supplemental ranges: <140 mg/dL before meals <180 mg/dL all other times of the day. Blood CAPILLARY BLOOD / Unknown 06/10/2024 5:35 PM EST 06/10/2024 5:35 PM EST Melida Valdes MD POINT OF CARE TEST O RDERABLES Performing Organization Address [facility] Co de Phone Number [facility] [place] [address] * (ABNORMAL) POC, GLUCOSE (06/10/2024 11:25 AM EST) Glucometer, POC 216(H) 65 - 199 mg/dL 06/10/2024 11:[address] [facility] Comment:Supplemental ranges: <140 mg/dL before meals <180 mg/dL all other times of the day. Blood CAPILLARY BLOOD / Unknown 06/10/2024 11:25 AM EST 06/10/2024 11:25 AM EST Melida Valdes MD POINT OF CARE TEST O RDERAPIETER Performing Organization Address City/[facility]/ZIP Co de Phone Number [facility] [place] [address] * (ABNORMAL) POC, GLUCOSE (06/10/2024 7:46 AM EST) Glucometer, POC 206(H) 65 - 199 mg/dL 06/10/2024 7:[address] [facility] Comment:Supplemental ranges: <140 mg/dL before meals <180 mg/dL all other times of the day. Blood CAPILLARY BLOOD / Unknown 06/10/2024 7:46 AM EST 06/10/2024 7:46 AM EST Melida Valdes MD POINT OF CARE TEST O NIKA Performing Organization Address [facility] Co de Phone Number [facility] [place] [address] * POC, GLUCOSE (06/10/2024 4:23 AM EST) Glucometer, POC 154 65 - 199 mg/dL 06/10/2024 4:[address] [facility] Comment:Supplemental ranges: <140 mg/dL before meals <180 mg/dL all other times of the day. Blood CAPILLARY BLOOD / Unknown 06/10/2024 4:23 AM EST 06/10/2024 4:24 AM EST Melida Valdes MD POINT OF CARE TEST Abimael MAHER Performing Organization Address [facility] Co de Phone Number [facility] [place] [address] * (ABNORMAL) CBC (with Diff) (06/10/2024 1:55 AM EST) Pathologist [facility] White Blood Cell 9.00 4.00 - 9.50 x10(3)/mc L 06/10/2024 2:[address] [facility] Red Blood Cell 5.03 4.58 - 5.54 x10(6)/mc L 06/10/2024 2:[address] [facility] Hemoglobin 14.9 13.7 - 16.5 g/dL 06/10/2024 2:[address] [facility] Hematocrit 46.4 40.5 - 48.5 [...] 0.90 x10(3)/mc L 06/10/2024 2:[address] [facility] Eos % 3.6 % 06/10/2024 2:[address] [facility] Eos Absolute 0.32 0.00 - 0.40 x10(3)/mc L 06/10/2024 2:[address] [facility] Basophil % 1.0 % 06/10/2024 2:14 AM [facility] Baso Absolute 0.09 0.00 - 0.10 x10(3)/mc L 06/10/2024 2:[address] [facility] Immature Gran % 0.6 % 2:14 AM [facility] Immature Gran Absolute 0.05(H) 0.00 - 0.04 x10(3)/mc L 06/10/2024 2:14 AM [facility] Blood VENOUS BLOOD SPECIMEN / Unknown Venipuncture / Unknown 06/10/2024 1:55 AM EST 06/10/2024 2:05 AM EST Shahnaz Scanlon MD HEMATOLOGY ORDERABLE S [facility] [place] [address] * Magnesium (06/10/2024 1:55 AM EST) Magnesium 0.83 0.69 - 1.07 mMol/L 06/10/2024 2:[address] [facility] Blood VENOUS BLOOD SPECIMEN / Unknown Venipuncture / Unknown 06/10/2024 1:55 AM EST 06/10/2024 2:05 AM EST Shahnaz Scanlon MD CHEMISTRY ORDERABLES [facility] [place] [address] * (ABNORMAL) Basic Metabolic Panel (06/10/2024 1:55 [...] MD CHEMISTRY ORDERABLES Performing Organization Address [facility]/ZIP Co de Phone Number [facility] [place] [place] [address] * Heparin (unfractionated) Level (06/10/2024 1:54 AM [...] HEMATOLOGY ORDERABLE S [facility] [place] [address] * POC, GLUCOSE (06/10/2024 12:05 AM EST) Glucometer, POC 125 65 - 199 mg/dL 06/10/2024 12:[address] [facility] Comment:Supplemental ranges: <140 mg/dL before meals <180 mg/dL all other times of the day. Blood CAPILLARY BLOOD / Unknown 06/10/2024 12:05 AM EST 06/10/2024 12:05 AM EST Melida Valdes MD POINT OF CARE TEST O RDERABLES Performing Organization Address City/[facility]/ZIP Co de Phone Number [facility] [place] [address] * POC, GLUCOSE (06/09/2024 8:36 PM EST) Glucometer, POC 197 65 - 199 mg/dL 06/09/2024 8:[address] [facility] Comment:Supplemental ranges: <140 mg/dL before meals <180 mg/dL all other times of the day. Blood CAPILLARY BLOOD / Unknown 06/09/2024 8:36 PM EST 06/09/2024 8:36 PM EST Melida Valdes MD POINT OF CARE TEST O RALPHERAPIETER Performing Organization Address [facility] Co de Phone Number [facility] [address] * POC, GLUCOSE (06/09/2024 5:27 PM EST) Glucometer, POC 174 65 - 199 mg/dL 06/09/2024 5:[address] [facility] Comment:Supplemental ranges: <140 mg/dL before meals <180 mg/dL all other times of the day. Blood CAPILLARY BLOOD / Unknown 06/09/2024 5:27 PM EST 06/09/2024 5:28 PM EST Melida Valdes MD POINT OF CARE TEST O NIKA Performing Organization Address City/[facility]/ZIP Co de Phone Number [facility] [place] [address] * (ABNORMAL) POC, GLUCOSE (06/09/2024 11:52 AM EST) Glucometer, POC 211(H) 65 - 199 mg/dL 06/09/2024 11:[address] [facility] Comment:Supplemental ranges: <140 mg/dL before meals <180 mg/dL all other times of the day. Blood CAPILLARY BLOOD / Unknown 06/09/2024 11:52 AM EST 06/09/2024 11:52 AM EST Melida Valdes MD POINT OF CARE TEST O RDERABLES Performing Organization Address [facility]/ZIP Co de Phone Number [facility] [place] [address] * Potassium (06/09/2024 8:25 AM EST) Potassium 4.6 3.5 - 5.0 mMol/L 06/09/2024 10:[address] [facility] Blood VENOUS BLOOD SPECIMEN / Unknown Venipuncture / Unknown 06/09/2024 8:25 AM EST 06/09/2024 8:42 AM EST Shahnaz Scanlon MD CHEMISTRY ORDERABLES Performing Organization Address [facility] Co de Phone Number [facility] [place] [address] * (ABNORMAL) POC, GLUCOSE (06/09/2024 8:10 AM EST) Glucometer, POC 209(H) 65 - 199 mg/dL 06/09/2024 8:[address] [facility] Comment:Supplemental ranges: <140 mg/dL before meals <180 mg/dL all other times of the day. Blood CAPILLARY BLOOD / Unknown 06/09/2024 8:10 AM EST 06/09/2024 8:11 AM EST Melida Valdes MD POINT OF CARE TEST O RDERABLES Performing Organization Address [facility]/ZIP Co de Phone Number [facility] [place] [address] * POC, GLUCOSE (06/09/2024 4:40 AM EST) Glucometer, POC 131 65 - 199 mg/dL 06/09/2024 4:[address] [facility] Comment:Supplemental ranges: <140 mg/dL before meals <180 mg/dL all other times of the day. Blood CAPILLARY BLOOD / Unknown 06/09/2024 4:40 AM EST 06/09/2024 4:41 AM EST Melida Valdes MD POINT OF CARE TEST O RDERABLES Performing Organization Address City/[facility]/ZIP Co de Phone Number [facility] [place] [place] [address] * Heparin (unfractionated) Level (06/09/2024 2:12 AM [...] HEMATOLOGY ORDERABLE S Performing Organization Address City/[facility]/ZIP Co de Phone Number [facility] [place] [place] [address] * (ABNORMAL) CBC (with Diff) (06/09/2024 2:12 [...] HEMATOLOGY ORDERABLE S [facility] [place] [address] * Magnesium (06/09/2024 2:12 AM EST) Magnesium 0.83 0.69 - 1.07 mMol/L 06/09/2024 2:52 AM [facility] Blood VENOUS BLOOD SPECIMEN / Unknown Venipuncture / Unknown 06/09/2024 2:12 AM EST 06/09/2024 2:22 AM EST Shahnaz Scanlon MD CHEMISTRY ORDERABLES [facility] [place] [address] * (ABNORMAL) Basic Metabolic Panel (06/09/2024 2:12 AM EST) Glucose 147 65 - 199 mg/dL 06/09/2024 2:[address] [facility] Comment:Glucose [...] - 15 mMol/L 06/09/2024 2:[address] [facility] Calcium [...] MD CHEMISTRY ORDERABLES Performing Organization Address [facility] Co de Phone Number [facility] [place] [address] * POC, GLUCOSE (06/09/2024 12:34 AM EST) Glucometer, POC 186 65 - 199 mg/dL 06/09/2024 12:[address] [facility] Comment:Supplemental ranges: <140 mg/dL before meals <180 mg/dL all other times of the day. Blood CAPILLARY BLOOD / Unknown 06/09/2024 12:34 AM EST 06/09/2024 12:34 AM EST Melida Valdes MD POINT OF CARE TEST O RDERAPIETER Performing Organization Address [facility] Co de Phone Number [facility] [place] [address] * POC, GLUCOSE (06/08/2024 8:27 PM EST) Glucometer, POC 176 65 - 199 mg/dL 06/08/2024 8:[address] [facility] Comment:Supplemental ranges: <140 mg/dL before meals <180 mg/dL all other times of the day. Blood CAPILLARY BLOOD / Unknown 06/08/2024 8:27 PM EST 06/08/2024 8:28 PM EST Melida Valdes MD POINT OF CARE TEST O RDERAPIETER Performing Organization Address City/[facility]/ZIP Co de Phone Number [facility] [place] [place] [address] * POC, GLUCOSE (06/08/2024 4:16 PM EST) Glucometer, POC 159 65 - 199 mg/dL 06/08/2024 4:[address] [facility] Comment:Supplemental ranges: <140 mg/dL before meals <180 mg/dL all other times of the day. Blood CAPILLARY BLOOD / Unknown 06/08/2024 4:16 PM EST 06/08/2024 4:16 PM EST Melida Valdes MD POINT OF CARE TEST O NIKA Performing Organization Address City/[facility]/ZIP Co de Phone Number [facility] [place] [address] * (ABNORMAL) POC, GLUCOSE (06/08/2024 12:35 PM EST) Glucometer, POC 226(H) 65 - 199 mg/dL 06/08/2024 12:[address] [facility] Comment:Supplemental ranges: <140 mg/dL before meals <180 mg/dL all other times of the day. Blood CAPILLARY BLOOD / Unknown 06/08/2024 12:35 PM EST 06/08/2024 12:35 PM EST Melida Valdes MD POINT OF CARE TEST O NIKA [facility] [place] [address] * POC, GLUCOSE (06/08/2024 8:10 AM EST) Glucometer, POC 190 65 - 199 mg/dL 06/08/2024 8:[address] [facility] Comment:Supplemental ranges: <140 mg/dL before meals <180 mg/dL all other times of the day. Blood CAPILLARY BLOOD / Unknown 06/08/2024 8:10 AM EST 06/08/2024 8:14 AM EST Melida Valdes MD POINT OF CARE TEST O NIKA Performing Organization Address [facility] Co de Phone Number [facility] [address] * POC, GLUCOSE (06/08/2024 4:09 AM EST) Glucometer, POC 151 65 - 199 mg/dL 06/08/2024 4:[address] [facility] Comment:Supplemental ranges: <140 mg/dL before meals <180 mg/dL all other times of the day. Blood CAPILLARY BLOOD / Unknown 06/08/2024 4:09 AM EST 06/08/2024 4:10 AM EST Melida Valdes MD POINT OF CARE TEST O NIKA Performing Organization Address [facility] de Phone Number [facility] [place] [address] * Heparin (unfractionated) Level (06/08/2024 3:21 AM [...] HEMATOLOGY ORDERABLE S [facility] [place] [address] * (ABNORMAL) CBC (with Diff) (06/08/2024 3:21 [...] - 0.04 x10(3)/mc L 06/08/2024 3:34 AM [facility] Blood VENOUS BLOOD SPECIMEN / Unknown Venipuncture / Unknown 06/08/2024 3:21 AM EST 06/08/2024 3:27 AM EST Shahnaz Scanlon MD HEMATOLOGY ORDERABLE S [facility] [place] [address] * Magnesium (06/08/2024 3:21 AM EST) Pathologist [facility] Magnesium 0.84 0.69 - 1.07 mMol/L 06/08/2024 3:59 AM [facility] Blood VENOUS BLOOD SPECIMEN / Unknown Venipuncture / Unknown 06/08/2024 3:21 AM EST 06/08/2024 3:27 AM EST Shahnaz Scanlon MD CHEMISTRY ORDERABLES Performing Organization Address City/[facility]/ZIP Co de Phone Number [facility] [place] [address] * (ABNORMAL) Basic Metabolic Panel (06/08/2024 3:21 AM EST) [facility] Glucose 173 65 - 199 [...] 22 - 31 mMol/L 06/08/2024 3:59 AM [facility] Anion Gap 12 5 - 15 mMol/L 06/08/2024 3:59 AM [facility] Calcium 9.4 8.5 - 10.5 mg/dL 06/08/2024 3:[address] [facility] Est Glomerular Filtration Rate - Male 74 mL/min/1. 73 m?? 06/08/2024 3:[address] [facility] MD CHEMISTRY ORDERABLES Performing Organization Address City/[facility]/ZIP Co de Phone Number [facility] [place] [address] * POC, GLUCOSE (06/07/2024 11:57 PM EST) Glucometer, POC 188 65 - 199 mg/dL 06/07/2024 11:[address] [facility] Comment:Supplemental ranges: <140 mg/dL before meals <180 mg/dL all other times of the day. Blood CAPILLARY BLOOD / Unknown 06/07/2024 11:57 PM EST 06/07/2024 11:58 PM EST Melida Valdes MD POINT OF CARE TEST O RDERABLES [facility] [place] [address] * POC, GLUCOSE (06/07/2024 8:05 PM EST) Glucometer, POC 118 65 - 199 mg/dL 06/07/2024 8:[address] [facility] Comment:Supplemental ranges: <140 mg/dL before meals <180 mg/dL all other times of the day. Blood CAPILLARY BLOOD / Unknown 06/07/2024 8:05 PM EST 06/07/2024 8:06 PM EST Melida Valdes MD POINT OF CARE TEST O NIKA Performing Organization Address City/[facility]/ZIP Co de Phone Number [facility] [place] [address] * Potassium (06/07/2024 5:22 PM EST) Pathologist [facility] Potassium 4.6 3.5 - 5.0 mMol/L 06/07/2024 5:[address] [facility] Blood VENOUS BLOOD SPECIMEN / Unknown Venipuncture / Unknown 06/07/2024 5:22 PM EST 06/07/2024 5:26 PM EST Shahnaz Scanlon MD CHEMISTRY ORDERABLES Performing Organization Address [facility] Co de Phone Number [facility] [address] * POC, GLUCOSE (06/07/2024 4:31 PM EST) Glucometer, POC 174 [id number] - 199 mg/dL 06/07/2024 4:[address] [facility] Comment:Supplemental ranges: <140 mg/dL before meals <180 mg/dL all other times of the day. Blood CAPILLARY BLOOD / Unknown 06/07/2024 4:31 PM EST 06/07/2024 4:34 PM EST Melida Valdes MD POINT OF CARE TEST Abimael MAHER Performing Organization Address City/[facility] Co de Phone Number [facility] [place] [address] * MRI Cardiac Morphology Function wwo Contrast (06/07/2024 1:10 PM EST) WORKSTATION ID [id number] [facility] Anatomical Region Laterality Modality Magnetic Resonan [...] - Mildly dilated left ventricle size with lyqrupjy-gs-kvduubtu decreased LV systolic function. ??LV ejection fraction [...] who have questions please contact the health day care teacher that requested your imaging first. ? [...] VENTRICLE: Mildly dilated left ventricle size with cxrekyhu-ie-apeswdot decreased LV systolic function. ??LV ejection fraction [...] VENTRICLE: Mildly dilated left ventricle size with itfgfalh-iv-uglsujoj decreasedLV systolic function. LV ejection fraction is [...] - Mildly dilated left ventricle size with chbnxukg-jw-xeyuxwwa decreasedLV systolic function. LV ejection fraction is [...] patients who have questions please contactthe health day care teacher that requested your imaging first. Delroy Fofana MD [facility] MRI ORDERABLES * (ABNORMAL) POC, GLUCOSE (06/07/2024 11:05 AM EST) [facility] Signature Glucometer, POC 221(H) 65 - 199 mg/dL 06/07/2024 11:[address] [facility] Comment:Supplemental ranges: <140 mg/dL before meals <180 mg/dL all other times of the day. Blood CAPILLARY BLOOD / Unknown 06/07/2024 11:05 AM EST 06/07/2024 11:06 AM EST Melida Valdes MD POINT OF CARE TEST O RDERABLES [facility] [place] [place] [address] * (ABNORMAL) POC, GLUCOSE (06/07/2024 11:03 AM EST) Glucometer, POC 250(H) 65 - 199 mg/dL 06/07/2024 11:[address] [facility] Comment:Supplemental ranges: <140 mg/dL before meals <180 mg/dL all other times of the day. Blood CAPILLARY BLOOD / Unknown 06/07/2024 11:03 AM EST 06/07/2024 11:04 AM EST Melida Valdes MD POINT OF CARE TEST O RDBECKIE Performing Organization Address [facility]/ZIP Co de Phone Number [facility] [place] [address] * Potassium (06/07/2024 9:44 AM EST) Potassium 4.7 3.5 - 5.0 mMol/L 06/07/2024 10:[address] [facility] Blood VENOUS BLOOD SPECIMEN / Unknown Venipuncture / Unknown 06/07/2024 9:44 AM EST 06/07/2024 9:57 AM EST Shahnaz Scanlon MD CHEMISTRY ORDERABLES Performing Organization Address [facility] Co de Phone Number [facility] [place] [place] [address] * POC, GLUCOSE (06/07/2024 7:45 AM EST) Glucometer, POC 175 65 - 199 mg/dL 06/07/2024 7:[address] [facility] Comment:Supplemental ranges: <140 mg/dL before meals <180 mg/dL all other times of the day. Blood CAPILLARY BLOOD / Unknown 06/07/2024 7:45 AM EST 06/07/2024 7:46 AM EST Melida Valdes MD POINT OF CARE TEST O RDBECKIE Performing Organization Address [facility]/ZIP Co de Phone Number [facility] [place] [place] [address] * XR Chest PA & Lateral (Generic) (06/07/2024 7:03 AM EST) WORKSTATION ID [id number] RAD Anatomical Region Laterality Modality Chest N/A [...] who have questions please contact the health day care teacher that requested your imaging first. ? [...] patients who have questions please contactthe health day care teacher that requested your imaging first. Shahnaz Scanlon [...] TEST O RDERABLES [facility] [place] [place] [address] * Heparin (unfractionated) Level (06/07/2024 2:41 AM [...] HEMATOLOGY ORDERABLE S [facility] [place] [address] * (ABNORMAL) CBC (with Diff) (06/07/2024 2:41 AM EST) White Blood Cell 10.06(H) 4.00 - 9.50 x10(3)/mc L 06/07/2024 2:58 AM [facility] Red Blood Cell 5.02 4.58 - 5.54 x10(6)/mc L 06/07/2024 2:58 AM [facility] Hemoglobin 14.8 13.7 - 16.5 g/dL 06/07/2024 2:58 AM [facility] Hematocrit 46.2 40.5 - 48.5 % 06/07/2024 2:58 AM [facility] Mean Cell Volume 92.0 82.9 - 93.1 fL 06/07/2024 2:58 AM [facility] Mean Cell Hemoglobin 29.5 27.5 [...] - 0.40 x10(3)/mc L 06/07/2024 2:58 AM [facility] Basophil % 0.8 % 06/07/2024 2:58 AM [facility] Baso Absolute 0.08 0.00 - 0.10 x10(3)/mc L 06/07/2024 2:[address] [facility] Immature Gran % 0.6 % 2:58 AM [facility] Immature Gran Absolute 0.06(H) 0.00 - 0.04 x10(3)/mc L 06/07/2024 2:58 AM [facility] Blood VENOUS BLOOD SPECIMEN / Unknown Venipuncture / Unknown 06/07/2024 2:41 AM EST 06/07/2024 2:52 AM EST Shahnaz Scanlon MD HEMATOLOGY ORDERABLE S Performing Organization Address City/[facility]/ZIP Co de Phone Number [facility] [place] [address] * Magnesium (06/07/2024 2:41 AM EST) Magnesium 0.92 0.69 - 1.07 mMol/L 06/07/2024 3:25 AM [facility] Blood VENOUS BLOOD SPECIMEN / Unknown Venipuncture / Unknown 06/07/2024 2:41 AM EST 06/07/2024 2:51 AM EST Shahnaz Scanlon MD CHEMISTRY ORDERABLES [facility] [place] [address] * (ABNORMAL) Basic Metabolic Panel (06/07/2024 2:41 AM EST) Glucose 140 65 - 199 mg/dL 06/07/2024 3:25 AM [facility] Comment:Glucose Concentratio n >=200 mg/dL plus symptoms is consistent with Diabetes Mellitus. Blood Urea Nitrogen 26(H) 10 - 20 mg/dL 06/07/2024 3:25 AM [facility] Creatinine 1.06 0.80 - 1.50 mg/dL 06/07/2024 3:25 AM [facility] Sodium [...] MD CHEMISTRY ORDERABLES [facility] [place] [address] * POC, GLUCOSE (06/07/2024 12:08 AM EST) [facility] Signature Glucometer, POC 182 65 - 199 mg/dL 06/07/2024 12:[address] [facility] Comment:Supplemental ranges: <140 mg/dL before meals <180 mg/dL all other times of the day. Blood CAPILLARY BLOOD / Unknown 06/07/2024 12:08 AM EST 06/07/2024 12:09 AM EST Melida Valdes MD POINT OF CARE TEST O NIKA Performing Organization Address City/[facility]/ZIP Co de Phone Number [facility] [place] [place] [address] * POC, GLUCOSE (06/06/2024 8:18 PM EST) Glucometer, POC 143 65 - 199 mg/dL 06/06/2024 8:[address] [facility] Comment:Supplemental ranges: <140 mg/dL before meals <180 mg/dL all other times of the day. Blood CAPILLARY BLOOD / Unknown 06/06/2024 8:18 PM EST 06/06/2024 8:19 PM EST Melida Valdes MD POINT OF CARE TEST O NIKA Performing Organization Address [facility] Co de Phone Number [facility] [place] [address] * POC, GLUCOSE (06/06/2024 3:39 PM EST) Glucometer, POC 147 65 - 199 mg/dL 06/06/2024 3:[address] [facility] Comment:Supplemental ranges: <140 mg/dL before meals <180 mg/dL all other times of the day. Blood CAPILLARY BLOOD / Unknown 06/06/2024 3:39 PM EST 06/06/2024 3:40 PM EST Melida Valdes MD POINT OF CARE TEST O NIKA Performing Organization Address City/[facility] Co de Phone Number [facility] [place] [address] * Potassium (06/06/2024 2:37 PM EST) Potassium 4.3 3.5 - 5.0 mMol/L 06/06/2024 3:[address] [facility] Blood VENOUS BLOOD SPECIMEN / Unknown Venipuncture / Unknown 06/06/2024 2:37 PM EST 06/06/2024 2:42 PM EST Shahnaz Scanlon MD CHEMISTRY ORDERABLES Performing Organization Address City/[facility]/ZIP Co de Phone Number [facility] [place] [address] * (ABNORMAL) POC, GLUCOSE (06/06/2024 1:39 PM EST) Glucometer, POC 317(H) 65 - 199 mg/dL 06/06/2024 1:[address] [facility] Comment:Supplemental ranges: <140 mg/dL before meals <180 mg/dL all other times of the day. Blood CAPILLARY BLOOD / Unknown 06/06/2024 1:39 PM EST 06/06/2024 1:41 PM EST Melida Valdes MD POINT OF CARE TEST O RDERAPIETER Performing Organization Address [facility] Co de Phone Number [facility] [place] [place] [address] * (ABNORMAL) POC, GLUCOSE (06/06/2024 11:34 AM EST) Glucometer, POC 264(H) 65 - 199 mg/dL 06/06/2024 11:[address] [facility] Comment:Supplemental ranges: <140 mg/dL before meals <180 mg/dL all other times of the day. Blood CAPILLARY BLOOD / Unknown 06/06/2024 11:34 AM EST 06/06/2024 11:35 AM EST Melida Valdes MD POINT OF CARE TEST O RDERAPIETER Performing Organization Address City/[facility]/ZIP Co de Phone Number [facility] [place] [address] * Potassium (06/06/2024 10:17 AM EST) Potassium 4.3 3.5 - 5.0 mMol/L 06/06/2024 10:[address] [facility] Blood VENOUS BLOOD SPECIMEN / Unknown Venipuncture / Unknown 06/06/2024 10:17 AM EST 06/06/2024 10:22 AM EST Shahnaz Scanlon MD CHEMISTRY ORDERABLES [facility] [place] [address] * POC, GLUCOSE (06/06/2024 7:57 AM EST) Glucometer, POC 195 65 - 199 mg/dL 06/06/2024 8:[address] [facility] Comment:Supplemental ranges: <140 mg/dL before meals <180 mg/dL all other times of the day. Blood CAPILLARY BLOOD / Unknown 06/06/2024 7:57 AM EST 06/06/2024 8:03 AM EST Melida Valdes MD POINT OF CARE TEST O RDERABLES Performing Organization Address City/[facility]/ZIP Co de Phone Number [facility] [place] [place] [address] * POC, GLUCOSE (06/06/2024 6:53 AM EST) Glucometer, POC 187 65 - 199 mg/dL 06/06/2024 6:[address] [facility] Comment:Supplemental ranges: <140 mg/dL before meals <180 mg/dL all other times of the day. Blood CAPILLARY BLOOD / Unknown 06/06/2024 6:53 AM EST 06/06/2024 6:54 AM EST Melida Valdes MD POINT OF CARE TEST O RDERABLES Performing Organization Address City/[facility]/ZIP Co de Phone Number [facility] [place] [address] * (ABNORMAL) Hemoglobin A1c (06/06/2024 3:33 AM [...] red blood cell turnover may not be assisted sales representative of glycemic control. Reference Interval: 4.3 - 5.6% 5.7 - 6.4%: Consistent with prediabetes >=6.5%: Consistent with diagnosis of diabetes mellitus Estimated Average Glucose 157 mg/dL 06/06/2024 1:[address] [facility] Blood VENOUS BLOOD SPECIMEN / Unknown Venipuncture / Unknown 06/06/2024 3:33 AM EST 06/06/2024 3:48 AM EST Alejandra Baumann APRN CHEMISTRY ORDERAB LES Performing Organization Address City/State/[facility] Co de Phone Number [facility] [place] [place] [address] * Heparin (unfractionated) Level (06/06/2024 3:33 AM [...] HEMATOLOGY ORDERABLE S [facility] [place] [address] * (ABNORMAL) CBC (with Diff) (06/06/2024 3:33 AM EST) White Blood Cell 9.81(H) 4.00 - 9.50 x10(3)/mc L 06/06/2024 3:54 AM [facility] Red Blood Cell 4.91 4.58 - 5.54 x10(6)/mc L 06/06/2024 3:54 AM [facility] Hemoglobin 14.6 13.7 - 16.5 g/dL 06/06/2024 3:54 AM [facility] Hematocrit 45.4 40.5 - 48.5 % 06/06/2024 3:54 AM [facility] Mean Cell Volume 92.5 82.9 - 93.1 fL 06/06/2024 3:54 AM [facility] Mean Cell Hemoglobin 29.7 27.5 - 32.1 pg 06/06/2024 3:54 AM [facility] Mean Cell Hemoglobin Concentration 32.2 32.0 - 35.7 g/dL 06/06/2024 3:54 AM [facility] Platelet 199 145 - 357 [...] - 0.10 x10(3)/mc L 06/06/2024 3:54 AM [facility] Immature Gran % 0.6 % 3:54 AM [facility] Immature Gran Absolute 0.06(H) 0.00 - 0.04 x10(3)/mc L 06/06/2024 3:[address] [facility] Blood VENOUS BLOOD SPECIMEN / Unknown Venipuncture / Unknown 06/06/2024 3:33 AM EST 06/06/2024 3:48 AM EST Shahnaz Scanlon MD HEMATOLOGY ORDERABLE S Performing Organization Address [facility]/ZIP Co de Phone Number [facility] [place] [address] * Magnesium (06/06/2024 3:33 AM EST) Magnesium 0.92 0.69 - 1.07 mMol/L 06/06/2024 4:17 AM [facility] Blood VENOUS BLOOD SPECIMEN / Unknown Venipuncture / Unknown 06/06/2024 3:33 AM EST 06/06/2024 3:47 AM EST Shahnaz Scanlon MD CHEMISTRY ORDERABLES Performing Organization Address City/[facility] Co de Phone Number [facility] [place] [address] * (ABNORMAL) Basic Metabolic Panel (06/06/2024 3:33 [...] 135 - 145 mMol/L 06/06/2024 4:17 AM [facility] Potassium 4.0 3.5 - 5.0 mMol/L 06/06/2024 4:17 AM [facility] Chloride 97(L) 98 - 107 mMol/L 06/06/2024 4:[address] [facility] Carbon Dioxide 26 22 - 31 mMol/L 06/06/2024 4:17 AM [facility] Anion Gap 13 5 - 15 mMol/L 06/06/2024 4:17 AM [facility] Calcium 9.1 8.5 - 10.5 mg/dL 06/06/2024 4:[address] [facility] Est [...] MD CHEMISTRY ORDERABLES [facility] [place] [address] * (ABNORMAL) POC, GLUCOSE (06/05/2024 10:31 PM EDT) [facility] Signature Glucometer, POC 238(H) 65 - 199 mg/dL 06/05/2024 10:[address] [facility] Comment:Supplemental ranges: <140 mg/dL before meals <180 mg/dL all other times of the day. Blood CAPILLARY BLOOD / Unknown 06/05/2024 10:31 PM EDT 06/05/2024 10:31 PM EDT Melida Valdes MD POINT OF CARE TEST O RDERABLES [facility] [place] [address] * (ABNORMAL) POC, GLUCOSE (06/05/2024 4:22 PM EDT) Glucometer, POC 205(H) 65 - 199 mg/dL 06/05/2024 4:[address] [facility] Comment:Supplemental ranges: <140 mg/dL before meals <180 mg/dL all other times of the day. Blood CAPILLARY BLOOD / Unknown 06/05/2024 4:22 PM EDT 06/05/2024 4:23 PM EDT Melida Valdes MD POINT OF CARE TEST O RDERABLES Performing Organization Address City/[facility]/ZIP Co de Phone Number [facility] [place] [address] * (ABNORMAL) POC, GLUCOSE (06/05/2024 11:34 AM EDT) Glucometer, POC 211(H) 65 - 199 mg/dL 06/05/2024 11:[address] [facility] Comment:Supplemental ranges: <140 mg/dL before meals <180 mg/dL all other times of the day. Blood CAPILLARY BLOOD / Unknown 06/05/2024 11:34 AM EDT 06/05/2024 11:34 AM EDT Melida Valdes MD POINT OF CARE TEST O RDERABLES [facility] [place] [address] * Potassium (06/05/2024 9:04 AM EDT) Potassium 4.3 3.5 - 5.0 mMol/L 06/05/2024 9:[address] [facility] Blood VENOUS BLOOD SPECIMEN / Unknown Venipuncture / Unknown 06/05/2024 9:04 AM EDT 06/05/2024 9:21 AM EDT Shahnaz Scanlon MD CHEMISTRY ORDERABLES Performing Organization Address [facility]/ZIP Co de Phone Number [facility] [place] [address] * POC, GLUCOSE (06/05/2024 7:27 AM EDT) Glucometer, POC 166 65 - 199 mg/dL 06/05/2024 7:[address] [facility] Comment:Supplemental ranges: <140 mg/dL before meals <180 mg/dL all other times of the day. Blood CAPILLARY BLOOD / Unknown 06/05/2024 7:27 AM EDT 06/05/2024 7:27 AM EDT Melida Valdes MD POINT OF CARE TEST O RDERABLES Performing Organization Address [facility]/ZIP Co de Phone Number [facility] [place] [place] [address] * Heparin (unfractionated) Level (06/05/2024 3:44 AM EDT) [facility] Signature UF Heparin 0.44 IU/mL 06/05/2024 4:07 [...] HEMATOLOGY ORDERABLE S [facility] [place] [address] * (ABNORMAL) CBC (with Diff) (06/05/2024 3:44 [...] - 93.1 fL 06/05/2024 3:[address] [facility] Mean Cell Hemoglobin 30.2 27.5 - 32.1 pg 06/05/2024 3:[address] [facility] Mean Cell Hemoglobin Concentration 32.7 32.0 - 35.7 g/dL 06/05/2024 3:[address] [facility] Platelet 219 145 - 357 x10(3)/mc L 06/05/2024 3:[address] [facility] Mean Platelet Volume 9.4 7.6 - 12.9 fL 06/05/2024 3:[address] [facility] RDW Standard Deviation 46.7(H) 36.0 - 45.0 fL 06/05/2024 3:56 AM [facility] RDW coefficient of variation 13.9(H) 11.4 - 13.8 % 06/05/2024 3:56 AM [facility] NRBC% auto 0.0 % 06/05/2024 3:56 AM [facility] NRBC Absolute <0.01 <0.01 x10(3)/mc L 06/05/2024 3:56 AM [facility] Neutrophil % 61.5 % 06/05/2024 3:56 AM [facility] Neutrophil Absolute (ANC) - Automated 6.65(H) 1.70 - 6.10 x10(3)/mc L 06/05/2024 3:56 AM [facility] Lymph % 24.0 % 06/05/2024 3:56 AM [facility] Lymph Absolute 2.60 0.90 - 3.20 x10(3)/mc L 06/05/2024 3:56 AM [facility] Monocyte % 10.9 % 06/05/2024 3:56 AM [facility] Monocyte Absolute 1.18(H) 0.30 - 0.90 x10(3)/mc L 06/05/2024 3:56 AM [facility] Eos % 2.2 % 06/05/2024 3:56 AM [facility] Eos Absolute 0.24 0.00 - 0.40 x10(3)/mc L 06/05/2024 3:56 AM [facility] Basophil % 0.8 % 06/05/2024 3:56 AM [facility] Baso Absolute 0.09 0.00 - 0.10 x10(3)/mc L 06/05/2024 3:56 AM [facility] Immature Gran % 0.6 % 3:56 AM [facility] Immature Gran Absolute 0.07(H) 0.00 - 0.04 x10(3)/mc L 06/05/2024 3:[address] [facility] Blood VENOUS BLOOD SPECIMEN / Unknown Venipuncture / Unknown 06/05/2024 3:44 AM EDT 06/05/2024 3:50 AM EDT Shahnaz Scanlon MD HEMATOLOGY ORDERABLE S [facility] [address] * Magnesium (06/05/2024 3:44 AM EDT) Magnesium 0.92 0.69 - 1.07 mMol/L 06/05/2024 4:[address] [facility] Blood VENOUS BLOOD SPECIMEN / Unknown Venipuncture / Unknown 06/05/2024 3:44 AM EDT 06/05/2024 3:50 AM EDT Shahnaz Scanlon MD CHEMISTRY ORDERABLES Performing Organization Address City/[facility]/ZIP Co de Phone Number [facility] [place] [address] * (ABNORMAL) Basic Metabolic Panel (06/05/2024 3:44 [...] - 145 mMol/L 06/05/2024 4:[address] [facility] Potassium 3.9 3.5 - 5.0 mMol/L 06/05/2024 4:[address] [facility] Chloride 95(L) 98 - 107 mMol/L 06/05/2024 4:[address] [facility] Carbon Dioxide 29 22 - 31 mMol/L 06/05/2024 4:[address] [facility] Anion Gap 12 5 - 15 mMol/L 06/05/2024 4:[address] [facility] Calcium 9.2 8.5 - 10.5 mg/dL 06/05/2024 4:[address] [facility] Est Glomerular Filtration Rate - Male 69 mL/min/1. 73 m?? 06/05/2024 4:[address] [facility] Comment: [...] MD CHEMISTRY ORDERABLES [facility] [place] [address] * Potassium (06/04/2024 10:34 PM EDT) Potassium 3.7 3.5 - 5.0 mMol/L 06/04/2024 11:[address] [facility] Blood VENOUS BLOOD SPECIMEN / Unknown Venipuncture / Unknown 06/04/2024 10:34 PM EDT 06/04/2024 10:39 PM EDT Shahnaz Scanlon MD CHEMISTRY ORDERABLES Performing Organization Address [facility]/ZIP Co de Phone Number [facility] [place] [place] [address] * POC, GLUCOSE (06/04/2024 7:43 PM EDT) Glucometer, POC 175 65 - 199 mg/dL 06/04/2024 7:[address] [facility] Comment:Supplemental ranges: <140 mg/dL before meals <180 mg/dL all other times of the day. Blood CAPILLARY BLOOD / Unknown 06/04/2024 7:43 PM EDT 06/04/2024 7:43 PM EDT Melida Valdes MD POINT OF CARE TEST O RDERABLES Performing Organization Address [facility] Co de Phone Number [facility] [place] [address] * Potassium (06/04/2024 4:35 PM EDT) Potassium 4.0 3.5 - 5.0 mMol/L 06/04/2024 5:[address] [facility] Blood VENOUS BLOOD SPECIMEN / Unknown Venipuncture / Unknown 06/04/2024 4:35 PM EDT 06/04/2024 4:40 PM EDT Shahnaz Scanlon MD CHEMISTRY ORDERABLES Performing Organization Address [facility] Co de Phone Number [facility] [place] [address] * POC, GLUCOSE (06/04/2024 3:26 PM EDT) Glucometer, POC 154 65 - 199 mg/dL 06/04/2024 3:[address] [facility] Comment:Supplemental ranges: <140 mg/dL before meals <180 mg/dL all other times of the day. Blood CAPILLARY BLOOD / Unknown 06/04/2024 3:26 PM EDT 06/04/2024 3:27 PM EDT Melida Valdes MD POINT OF CARE TEST O RDERABLES Performing Organization Address City/[facility]/ZIP Co de Phone Number [facility] [place] [address] * POC, GLUCOSE (06/04/2024 11:09 AM EDT) Glucometer, POC 188 65 - 199 mg/dL 06/04/2024 11:[address] [facility] Comment:Supplemental ranges: <140 mg/dL before meals <180 mg/dL all other times of the day. Blood CAPILLARY BLOOD / Unknown 06/04/2024 11:09 AM EDT 06/04/2024 11:09 AM EDT Delroy Fofana MD POINT OF CARE TEST ORDERABLES Performing Organization Address [facility] Co de Phone Number [facility] [place] [address] * Heparin (unfractionated) Level (06/04/2024 10:41 AM [...] HEMATOLOGY ORDERABLE S Performing Organization Address City/[facility]/ZIP Co de Phone Number [facility] [place] [address] * Potassium (06/04/2024 10:41 AM EDT) Potassium 4.0 3.5 - 5.0 mMol/L 06/04/2024 11:[address] [facility] Blood VENOUS BLOOD SPECIMEN / Unknown Venipuncture / Unknown 06/04/2024 10:41 AM EDT 06/04/2024 10:46 AM EDT Shahnaz Scanlon MD CHEMISTRY ORDERABLES Performing Organization Address [facility] Co de Phone Number [facility] [place] [address] * POC, GLUCOSE (06/04/2024 7:11 AM EDT) Glucometer, POC 182 65 - 199 mg/dL 06/04/2024 7:[address] [facility] Comment:Supplemental ranges: <140 mg/dL before meals <180 mg/dL all other times of the day. Blood CAPILLARY BLOOD / Unknown 06/04/2024 7:11 AM EDT 06/04/2024 7:12 AM EDT Delroy Fofana MD POINT OF CARE TEST ORDERABLES Performing Organization Address City/[facility]/ZIP Co de Phone Number [facility] [place] [address] * Heparin (unfractionated) Level (06/04/2024 4:38 AM [...] MD HEMATOLOGY ORDERABLE S Performing Organization Address City/State/[facility] Co de Phone Number [facility] [place] [address] * (ABNORMAL) CBC (with Diff) (06/04/2024 4:38 [...] - 48.5 % 06/04/2024 5:[address] [facility] Mean Cell Volume 92.7 82.9 - 93.1 fL 06/04/2024 5:[address] [facility] Mean Cell Hemoglobin 29.9 27.5 - 32.1 pg 06/04/2024 5:12 AM [facility] Mean Cell Hemoglobin Concentration 32.3 32.0 - 35.7 g/dL 06/04/2024 5:12 AM [facility] Platelet 222 145 - 357 x10(3)/mc L 06/04/2024 5:12 AM [facility] Mean Platelet Volume 9.5 7.6 - 12.9 fL 06/04/2024 5:12 AM [facility] RDW Standard Deviation 47.6(H) 36.0 - 45.0 fL 06/04/2024 5:12 AM [facility] RDW coefficient of variation 14.1(H) 11.4 - 13.8 % 06/04/2024 5:12 AM [facility] NRBC% auto 0.0 % 06/04/2024 5:12 AM [facility] NRBC Absolute <0.01 <0.01 x10(3)/mc L 06/04/2024 5:12 AM [facility] Neutrophil % 60.3 % 06/04/2024 5:12 AM [facility] Neutrophil Absolute (ANC) - Automated 6.91(H) 1.70 - 6.10 x10(3)/mc L 06/04/2024 5:12 AM [facility] Lymph % 25.1 % 06/04/2024 5:12 AM [facility] Lymph Absolute 2.87 0.90 - 3.20 x10(3)/mc L 06/04/2024 5:12 AM [facility] Monocyte % 10.6 % 06/04/2024 5:12 AM [facility] Monocyte Absolute 1.21(H) 0.30 - 0.90 x10(3)/mc L 06/04/2024 5:12 AM [facility] Eos % 2.8 % 06/04/2024 5:12 AM [facility] Eos Absolute 0.32 0.00 - [...] HEMATOLOGY ORDERABLE S [facility] [place] [place] [address] * Magnesium (06/04/2024 4:38 AM EDT) Magnesium 0.84 0.69 - 1.07 mMol/L 06/04/2024 5:[address] [facility] Blood VENOUS BLOOD SPECIMEN / Unknown Venipuncture / Unknown 06/04/2024 4:38 AM EDT 06/04/2024 5:07 AM EDT Shahnaz Scanlon MD CHEMISTRY ORDERABLES [facility] [place] [address] * (ABNORMAL) Basic Metabolic Panel (06/04/2024 4:38 AM EDT) Glucose 118 65 - 199 mg/dL 06/04/2024 5:[address] [facility] Comment:Glucose Concentratio n >=200 mg/dL plus symptoms is consistent with Diabetes Mellitus. Blood Urea Nitrogen 22(H) 10 - 20 mg/dL 06/04/2024 5:35 AM [facility] Creatinine 1.22 0.80 - 1.50 mg/dL 06/04/2024 5:35 AM [facility] Sodium 137 135 - 145 mMol/L 06/04/2024 5:35 AM [facility] Potassium 3.6 3.5 - 5.0 mMol/L 06/04/2024 5:35 AM [facility] Chloride 97(L) 98 - 107 mMol/L 06/04/2024 5:35 AM [facility] Carbon Dioxide 29 22 - 31 mMol/L 06/04/2024 5:35 AM [facility] Anion Gap 11 5 - 15 mMol/L 06/04/2024 5:35 AM [facility] Calcium 9.0 8.5 - 10.5 mg/dL 06/04/2024 5:35 AM [facility] Est Glomerular Filtration Rate - Male 65 mL/min/1. 73 m?? 06/04/2024 5:35 AM [facility] Comment: This patient's estimated GFR [...] MD CHEMISTRY ORDERABLES Performing Organization Address [facility] Co de Phone Number [facility] [place] [place] [address] * Heparin (unfractionated) Level (06/03/2024 8:58 PM [...] HEMATOLOGY ORDERABLE S Performing Organization Address [facility]/ZIP Co de Phone Number [facility] [place] [place] [address] * POC, GLUCOSE (06/03/2024 8:05 PM EDT) Glucometer, POC 136 65 - 199 mg/dL 06/03/2024 8:[address] [facility] Comment:Supplemental ranges: <140 mg/dL before meals <180 mg/dL all other times of the day. Blood CAPILLARY BLOOD / Unknown 06/03/2024 8:05 PM EDT 06/03/2024 8:05 PM EDT Delroy Fofana MD POINT OF CARE TEST ORDERABLES Performing Organization Address [facility]/ZIP Co de Phone Number [facility] [place] [address] * POC, GLUCOSE (06/03/2024 5:48 PM EDT) Glucometer, POC 191 65 - 199 mg/dL 06/03/2024 5:[address] [facility] Comment:Supplemental ranges: <140 mg/dL before meals <180 mg/dL all other times of the day. Blood CAPILLARY BLOOD / Unknown 06/03/2024 5:48 PM EDT 06/03/2024 5:49 PM EDT Delroy Fofana MD POINT OF CARE TEST ORDERABLES Performing Organization Address [facility] Co de Phone Number [facility] [place] [place] [address] * CT Chest wo Contrast (Generic) (06/03/2024 4:33 PM EDT) WORKSTATION ID [id number] RAD Anatomical Region Laterality Modality Chest Computed Tomogra phy Impressions 06/03/2024 4:47 PM EDT Cardiomegaly. Biventricular ICD leads in place. Thank you for letting us participate in the care of this patient. ??If you are a health care provider and have any questions regarding this report, please contact the number below. ??For patients who have questions please contact the health day care teacher that requested your imaging first. ? [...] patients who have questions please contactthe health day care teacher that requested your imaging first. Bobby Loja MD IMG CT ORDERABLES * Carotid Duplex, Bilateral (06/03/2024 2:19 PM EDT) VB Text Report Department: Vascular Surgery Lab Patient: [id number] (GEORGE MEHTA) CPT: 70124 Referring Physician: BOBBY LOJA ?? Phone: Indications: [...] database for comparison. Electronically Signed by: KRISS MCKENO M.D. on 2024-06-03 03:51:06 PM VASCUBASE VB [...] HEMATOLOGY ORDERABLE S Performing Organization Address [facility] Co de Phone Number [facility] [place] [address] * POC, GLUCOSE (06/03/2024 11:14 AM EDT) Glucometer, POC 166 65 - 199 mg/dL 06/03/2024 11:[address] [facility] Comment:Supplemental ranges: <140 mg/dL before meals <180 mg/dL all other times of the day. Blood CAPILLARY BLOOD / Unknown 06/03/2024 11:14 AM EDT 06/03/2024 11:14 AM EDT Delroy Fofana MD POINT OF CARE TEST ORDERABLES Performing Organization Address [facility] Co de Phone Number [facility] [place] [address] * (ABNORMAL) Troponin-T, High Sensitivity 3 Hour [...] troponin value can be found in the [facility] Test Catalog Troponin - https://[facility]-.testcatalog.org/catalogs/565/files/33996 Reference: Fourth [place] Definition of Myocardial Infarction. Journal of the [place] [employer] 2018;72:2684-4536 Troponin-T, HS 3 hr delta 06/03/2024 10:[address] [facility] Comment:Delta troponin value not calculated, sample collected outside of delta calculation time limit. Blood VENOUS BLOOD SPECIMEN / Unknown IP Care Team Draw / Unknown 06/03/2024 10:06 AM EDT 06/03/2024 10:15 AM EDT Delroy Fofana MD CHEMISTRY ORDERABLE S Performing Organization Address City/State/[facility] Co de Phone Number [facility] [place] [address] * ECHO COMPLETE W CONTRAST (06/03/2024 8:46 AM EDT) Anatomical Region Laterality Modality Cardiac Other 06/03/2024 6:52 AM EDT Narrative 06/03/2024 10:32 AM EDT [address] [place], [place] [id number] ? Echocardiogram Report Name: GEORGE MEHTA ?Study Date: 06/03/2024 06:52 AM : 1955 ? Height: 168 cm ? Account: [id number] Age: 69 yrs ? Weight: 102 kg Gender: Male ?BSA: 2.1 m2 Ordering Physician: SHAHNAZ SCANLON Referring Physician: NEHAL QUINTERO Performed By: Sara Kebede RDCS Reason For Study: STEMI Exam Location: [facility]. Interpretation Summary -Left ventricular systolic function [...] fellow performed study of today's date). Procedure Complete-[id number]. Image enhancement Optison was used for left [...] Note Jonnie Jordan MD - 06/03/2024 [address] [place] [address] Echocardiogram Report Name: GEORGE MEHTA Raad Study Date: :52 AM : 1955 Height: 168 cm Account: [id number] Age: 69 yrs Weight: 102 kg Gender: Male BSA: 2.1 m2 Ordering Physician: SHAHNAZ SCANLON Referring Physician: NEHAL QUINTERO Performed By: Sara Kebede RDCS Reason For Study: STEMI Exam Location: [facility]. Interpretation Summary -Left ventricular systolic function [...] a fellow performed study of's date). Procedure Complete-[id number]. Image enhancement Optison was used for left [...] troponin value can be found in the [facility] Test Catalog Troponin - https://[facility]-.testcatalog.org/catalogs/565/files/48627 Reference: [place] Definition of Myocardial Infarction. Journal of the [place] [employer] 2018;72:5944-1275 Troponin-T, HS 1 hr delta 5 ng/L [...] CHEMISTRY ORDERABLE S [facility] [place] [address] * POC, GLUCOSE (06/03/2024 7:54 AM EDT) Glucometer, POC 195 65 - 199 mg/dL 06/03/2024 7:[address] [facility] Comment:Supplemental ranges: <140 mg/dL before meals <180 mg/dL all other times of the day. Blood CAPILLARY BLOOD / Unknown 06/03/2024 7:54 AM EDT 06/03/2024 7:55 AM EDT Nuha Rojo MD POINT OF CARE TEST ORDERABLES [facility] [place] [address] * (ABNORMAL) Troponin-T, High Sensitivity (06/03/2024 7:39 [...] troponin value can be found in the [facility] Test Catalog Troponin - https://[email or web address].org/catalogs/565/files/08789 Reference: [place] Definition of Myocardial Infarction. Journal of the [place] [employer] 2018;72:7138-7769 Blood VENOUS BLOOD SPECIMEN / Unknown IP Care Team Draw / Unknown 06/03/2024 7:39 AM EDT 06/03/2024 7:48 AM EDT Delroy Fofana MD CHEMISTRY ORDERABLE S [facility] [place] [address] * (ABNORMAL) Troponin-T, High Sensitivity 3 Hour [...] troponin value can be found in the [facility] Test Catalog Troponin - https://[facility].testcatalog.org/catalogs/565/files/76583 Reference: [place] Definition of Myocardial Infarction. Journal of the [place] [employer] 2018;72:1816-1355 Troponin-T, HS 3 hr delta 46 ng/L [...] MD CHEMISTRY ORDERABLES [facility] [place] [address] * (ABNORMAL) Troponin-T, High Sensitivity 1 Hour [...] troponin value can be found in the [facility] Test Catalog Troponin - https://[facility].testcatalog.org/catalogs/565/files/10929 Reference: [place] Definition of Myocardial Infarction. Journal of the [place] [employer] 2018;72:1002-2330 Troponin-T, HS 1 hr delta 10 ng/L [...] MD CHEMISTRY ORDERABLES [facility] [place] [address] * XR Chest One View (06/03/2024 2:41 AM EDT) WORKSTATION ID [id number] RAD Anatomical Region Laterality Modality Chest N/A Digital Radiogra phy Impressions 06/03/2024 3:06 AM EDT No radiographically evident acute cardiopulmonary process. Thank you for letting us participate in the care of this patient. ??If you are a health care provider and have any questions regarding this report, please contact the number below. ??For patients who have questions please contact the health day care teacher that requested your imaging first. ? [...] patients who have questions please contactthe health day care teacher that requested your imaging first. Shahnaz Scanlon [...] HEMATOLOGY ORDERABLE S [facility] [place] [address] * (ABNORMAL) Troponin-T, High Sensitivity (06/03/2024 2:13 [...] troponin value can be found in the [facility] Test Catalog Troponin - https://[facility].testcatalog.org/catalogs/565/files/69752 Reference: [place] Definition of Myocardial Infarction. Journal of the [place] [employer] 2018;72:9290-8005 Blood VENOUS BLOOD SPECIMEN / Unknown IP Care Team Draw / Unknown 06/03/2024 2:13 AM EDT 06/03/2024 2:32 AM EDT Shahnaz Scanlon MD CHEMISTRY ORDERABLES Performing Organization Address City/[facility]/ZIP Co de Phone Number [facility] [place] [address] * Magnesium (06/03/2024 2:13 AM EDT) Magnesium 0.86 0.69 - 1.07 mMol/L 06/03/2024 3:[address] [facility] Blood VENOUS BLOOD SPECIMEN / Unknown IP Care Team Draw / Unknown 06/03/2024 2:13 AM EDT 06/03/2024 2:32 AM EDT Shahnaz Scanlon MD CHEMISTRY ORDERABLES [facility] [place] [address] * Basic Metabolic Panel (06/03/2024 2:13 AM EDT) Glucose 126 65 - 199 mg/dL 06/03/2024 3:02 AM [facility] Comment:Glucose Concentratio n >=200 mg/dL plus symptoms is consistent with Diabetes Mellitus. Blood Urea Nitrogen 20 10 - 20 mg/dL 06/03/2024 3:02 AM [facility] Creatinine 1.13 0.80 - 1.50 mg/dL 06/03/2024 3:02 AM [facility] Sodium 139 135 - 145 mMol/L 06/03/2024 3:02 AM [facility] Potassium 4.2 3.5 - 5.0 mMol/L 06/03/2024 3:02 AM [facility] Chloride 101 98 - 107 mMol/L 06/03/2024 3:02 AM [facility] Carbon Dioxide 26 22 - 31 mMol/L 06/03/2024 3:02 AM [facility] Anion Gap 12 5 - 15 mMol/L 06/03/2024 3:02 AM [facility] Calcium 9.8 8.5 - 10.5 mg/dL 06/03/2024 3:02 AM [facility] Est Glomerular Filtration Rate - Male 71 mL/min/1. 73 m?? 06/03/2024 3:02 AM [facility] Comment: This patient's estimated GFR [...] MD CHEMISTRY ORDERABLES [facility] [place] [address] * (ABNORMAL) CBC (with Diff) (06/03/2024 2:13 [...] - 45.0 fL 06/03/2024 2:[address] [facility] RDW coefficient of variation 14.1(H) 11.4 - 13.8 % 06/03/2024 2:[address] [facility] NRBC% auto 0.0 % 06/03/2024 2:37 AM [facility] NRBC Absolute <0.01 <0.01 x10(3)/mc L 06/03/2024 2:37 AM [facility] Neutrophil % 58.4 % 06/03/2024 2:37 AM [facility] Neutrophil Absolute (ANC) - Automated 6.51(H) 1.70 - 6.10 x10(3)/mc L 06/03/2024 2:37 AM [facility] Lymph % 29.9 % 06/03/2024 2:37 AM [facility] Lymph Absolute 3.34(H) 0.90 - 3.20 x10(3)/mc L 06/03/2024 2:37 AM [facility] Monocyte % 8.1 % 06/03/2024 2:37 AM [facility] Monocyte Absolute 0.90 0.30 - 0.90 x10(3)/mc L 06/03/2024 2:37 AM [facility] Eos % 2.4 % 06/03/2024 2:37 AM [facility] Eos Absolute 0.27 0.00 - 0.40 x10(3)/mc L 06/03/2024 2:37 AM [facility] Basophil % 0.8 % 06/03/2024 2:37 AM [facility] Baso Absolute 0.09 0.00 - 0.10 x10(3)/mc L 06/03/2024 2:37 AM [facility] Immature Gran % 0.4 % 2:37 AM [facility] Immature Gran Absolute 0.05(H) 0.00 - 0.04 x10(3)/mc L 06/03/2024 2:37 AM [facility] Blood VENOUS BLOOD SPECIMEN / Unknown IP Care Team Draw / Unknown 06/03/2024 2:13 AM EDT 06/03/2024 2:31 AM EDT Shahnaz Scanlon MD HEMATOLOGY ORDERABLE S [facility] [address] * Lipid Panel (Reflex Direct LDL) (06/03/2024 2:13 AM EDT) Cholesterol, Total 76 mg/dL 06/03/2024 3:[address] [facility] Comment: Desirable: < 200 mg/dL Borderline High: 200 - 239 mg/dL High: > or = 240 mg/dL Triglyceride 75 mg/dL 06/03/2024 3:[address] [facility] Comment: Normal: <150 mg/dL Borderline High: 150-199 mg/dL High: 200-499 mg/dL Very High: > or =500 mg/dL HDL Cholesterol 39 mg/dL 3:[address] [facility] Comment:Males: High Risk: <4 0 mg/dL LDL Cholesterol 21 mg/dL 3:[address] [facility] Comment: Desirable: <100 mg/dL [...] AM EDT 06/03/2024 2:[address] [facility] - 06/03/2024 3:02 AM EDT It [...] ACC/AHA Guidelines (most recently Bruce et al. [facility] 05/07/22): * For individuals with [...] MD CHEMISTRY ORDERABLES Performing Organization Address [facility] Co de Phone Number [facility] [place] [address] * (ABNORMAL) APTT (06/03/2024 2:13 AM EDT) [...] HEMATOLOGY ORDERABLE S Performing Organization Address [facility] de Phone Number [facility] [place] [address] * Prothrombin Time (06/03/2024 2:13 AM EDT) [...] HEMATOLOGY ORDERABLE S Performing Organization Address City/[facility]/ZIP Co de Phone Number [facility] [place] [address] * Hepatic Function Panel (06/03/2024 2:13 AM [...] MD CHEMISTRY ORDERABLES [facility] [place] [address] * (ABNORMAL) pro-Brain Natriuretic Peptide (06/03/2024 2:13 AM EDT) NT-proBNP 1,628(H) <=124 pg/mL 06/03/2024 4:[address] [facility] Blood VENOUS BLOOD SPECIMEN / Unknown IP Care Team Draw / Unknown 06/03/2024 2:13 AM EDT 06/03/2024 2:32 AM EDT Shahnaz Scanlon MD CHEMISTRY ORDERABLES Performing Organization Address City/[facility]/ZIP Co de Phone Number [facility] [place] [place] [address] * Phosphorus (06/03/2024 2:13 AM EDT) Phosphorus 4.4 2.5 - 4.5 mg/dL 06/03/2024 3:[address] [facility] Blood VENOUS BLOOD SPECIMEN / Unknown IP Care Team Draw / Unknown 06/03/2024 2:13 AM EDT 06/03/2024 2:32 AM EDT Shahnaz Scanlon MD CHEMISTRY ORDERABLES Performing Organization Address [facility] Co de Phone Number [facility] [place] [address] * EKG 12 Lead (06/03/2024 1:45 AM EDT) Ventricular rate 63 BPM MUSE SYSTEM Atrial Rate 63 BPM MUSE SYSTEM P-R Interval 168 ms MUSE SYSTEM QRS Duration 96 ms MUSE SYSTEM Q-T Interval 400 ms MUSE SYSTEM QTC Calculated (Bezet) 409 ms MUSE SYSTEM Calculated P [place] 65 degrees MUSE SYSTEM Calculated R [place] 70 degrees MUSE SYSTEM Calculated T [place] -86 degrees MUSE SYSTEM INTERPRETATION Atrial-sensed ventricular-paced rhythm Abnormal ECG No previous ECGs available I personally reviewed the tracing and edited the fellows interpretation Confirmed by fellow Sunni Agudelo ([id number]) on 06/04/2024 3:55:40 PM Confirmed by MD Tamia, Stuart Perry ([id number]) on 06/05/2024 11:46:48 AM MUSE SYSTEM 06/03/2024 1:45 AM EDT 06/05/2024 11:46 AM EDT Shahnaz Scanlon MD ECG ORDERABLES Performing Organization Address City/[facility]/ZIP Co de Phone Number MUSE SYSTEM * CARDIAC CATHETERIZATION (06/03/2024 12:42 AM EDT) Anatomical Region Laterality Modality Other Narrative 06/04/2024 2:22 PM EDT ?[facility] ? Cardiac Catheterization/Intervention Report ? Patient Name: Tyson, George L. ? Procedure Date: 06/02/2024 ? A #: [id number] ? Primary Physician: Nuha Shen I ? Case #: [id number] ? File Name: [id number] ? Catheterization Order Number: [id number] ? [facility] ? Final Report [place], [place] ? Patient Name: ? George L. Tyson ? ID#: ?[id number] ? : ?1955 ? Procedure Date: ? June 02, 2024 ? Case #: ? [id number] ? Room: ? 5 ? Case Physician: [...] was Emergent. The indication for ?the labor relations officer visit is ACS less than or equal [...] catheter and a 3.5 Fr [place] 20 Mhz using Manual ?pullback. ??Imaging was [...] catheter and a 3.5 Fr [place] 20 Mhz using ?Manual pullback. ??Imaging was [...] Note Nuha Shen MD - 07/20/2024 [facility] Cardiac Catheterization/Intervention Report Patient Name: Tyson Georgedennis Multani Procedure Date: 06/02/2024 A #: [id number] Primary Physician: Nuha Shen I Case #: [id number] File Name: [id number] Catheterization Order Number: [id number] [facility] FinalReport [place], [place] Patient Name: George Mehta ID#:[id number] :1955 Procedure Date: June 02, 2024 Case [...] was designated as ASA Class IV. The [facility] clinicalfrailty scale is 5: Mildly Frail. Diagnostic Tests: Electrocardiography: EKG was assessed by ECG. EKG was Abnormal. EKG showed STDeviation >= 0.5 mm. Medications Prior to Procedure: Sacubitril and Valsartan, Aspirin, Beta Erik, Statin and Thrombolytic (any). Indications for Diagnostic Cath: The priority of the diagnostic procedure was Emergent. Theindication for the labor relations officer visit is ACS less than or equal [...] units of heparin were administered. A total pp903tz of Omnipaque were opened, 84cc of Omnipaque were administered ybm30ib of Omnipaque were wasted. Radiation: Fluoro time [...] catheter and a 3.5 Fr [place] 20 Mhz usingManual pullback. Imaging was successful. [...] catheter and a 3.5 Fr [place] 20 Mhzusing Manual pullback. Imaging was successful. Indication: IVUS performed for pre intervention planning. Findings Pre-Intervention: scattered plaque, calcification and aric665 degrees calcification. Findings Post-Intervention: Stent not imaged [...] * POC, GLUCOSE (06/02/2024 11:31 PM EDT) [facility] Glucometer, POC 156 65 - 199 mg/dL 06/02/2024 11:[address] [facility] Comment:Supplemental ranges: <140 mg/dL before meals <180 mg/dL all other times of the day. Blood CAPILLARY BLOOD / Unknown 06/02/2024 11:31 PM EDT 06/02/2024 11:31 PM EDT Nuha Rojo MD POINT OF CARE TEST ORDERABLES [facility] [address] [place] [address] documented in this encounter Visit Diagnoses Not [...] 2100, Last dose on Fri06/23/24 at 0900, Feller Machine Operator recommended duration is 3 days., Routine [...] 8:02 PM EST 2 tablets sodium chloride ([place]) 0.65 % nasal spray 1 spray 1 [...] Christina Myers RN)1203 (Given - Provider: Shazia Mdconald RN) aspirin chewable tablet 81 mg(Linked Group [...] 2100, Last dose on Fri06/23/24 at 0900, Feller Machine Operator recommended duration is 3 days., Routine [...] oral route first line., Routine sodium chloride ([place]) 0.65 % nasal spray 1 spray 1 [...] Routine documented in this encounter Care Teams Armhole Presser Relationship Specialty Start Date End Date Mauro Berumen MD [address] [place] [address] PCP - General Family Medicine 06/02/24 documented as of this encounter
--- OUTSIDE RECORDS SUMMARY | 2024-08-18 10:20 | XMS_ITS | Encounter Summary ---
Author Organization [facility] Address [facility] [place] [address] Care Team Providers Care Channeler Runner Name Role Phone Mauro Berumen MD Primary Care Provider [phone] Encounter Details Date Type Department Care Team [...] any time in the past 12 m [facility], were you homeless or [...] Care Team (Late st Contact Info) Description 09/29/2024 2:00 PM EST Office Visit Cardiology at [address] [id number] Moi Falcon MD [facility] [place] [address] documented as of this encounter Visit Diagnoses Not on filedocumented in this encounter Care Teams Channeler Runner Relationship Specialty Start Date End Date Mauro Berumen MD [address] [place] [id number] PCP - General Family Medicine 06/02/24 documented as of this encounter
--- OUTSIDE RECORDS SUMMARY | 2024-08-18 10:20 | XMS_ITS | Clinical Summary ---
Author Organization [facility] Address [facility] [place] [address] Care Team Providers Care Seat Cover Maker Name Role Phone Mauro Berumen MD Primary Care Provider [phone] Allergies No known active allergies Medications Medication [...] Take 25 mg by mouth daily. Active acetaminophen (Tylenol) 325 mg tablet Take 3 tablets by mouth every 6 hours as needed for Pain. 06/21/2024 Active guaiFENesin ER (Mucinex) 600 mg ER 12 hr tablet Take 1 tablet by mouth every 12 hours. 10 tablet 06/21/2024 Active furosemide (Lasix) 20 mg tablet Take 20 mg, one time for weight gain of 2 pounds overnight or 5 pounds in 5 days. 30 tablet 3 08/16/2024 Active Insulin Tresiba FlexTouch U-100 100 unit/mL (3 mL) Insulin PenIndications:ty pe 2 diabetes mellitus Inject 15 Units subcutaneously daily. Indications: type 2 diabetes mellitus 08/16/2024 Active metoprolol succinate XL (Toprol-XL) 50 mg ER 24 hr tablet Take 1 tablet by mouth daily. 90 tablet 3 08/17/2024 Active nitroGLYcerin (Nitrostat) 0.[address] 1 tablet under the tongue every 5 minutes as needed for Chest pain. 90 tablet 12 08/16/2024 Active Active Problems Problem Noted Date Diagnosed Date NSTEMI (non-ST elevated myocardial infarction) 0 08/15/2024 Elevated troponin 08/14/2024 Cardiac resynchronization th erapy defibrillator (GAS ENGINEER-D) - Medtronic Amplia 06/09/2024 Cardiomyopathy, ischemic 06/09/2024 Acute on chronic heart failu re with reduced ejection fraction (HFrEF, <= 40%) 06/05/2024 Coronary artery disease invo lving [place] coronary artery of [place] heart without angina pectoris 06/05/2024 Type 2 diabetes mellitus 06/05/2024 STEMI (ST elevation myocardial infarction) 06/02 Encounters Date Type Department Care Team Description 08/14/2024 7:42 PM EST - 08/16/2024 2:48 PM EST Hospital Encounter Heart and Vascular Unit Level 3 [place] [phone] Jim Benites MD Vinod, Poornima, MD Elevated troponin; Chest pain, unspecified type Discharge Disposition: Home 08/13/2024 Telephone Cardiology at [address] [phone] Katy Maurer APRN 08/13/2024 External [place] [phone] 07/20/2024 3:20 PM EST Office [place] [phone] Wendi Loja MD Post-operative state 07/20/2024 Notes Only Cardiology at [address] [phone] Esha Jones RN 07/20/2024 Travel 06/15/2024 Unscheduled Encounter Cardiology at [address] [phone] Ross Corbin PA Cardiac resynchronization therapy defibrillator (GAS ENGINEER-D) in place [Z95.810] 06/14/2024 7:30 AM EST - 06/14/2024 2:08 PM EST Surgery Main Operating Room [place] [phone] Wendi Loja MD @CABG, USING ARTERIAL GRAFT;SINGLE ARTERIAL GRAFT (WRVU 33.75) 06/14/2024 7:30 AM EST Anesthesia Event Main Operating Room [place] [phone] Hosea Ardon MD Budney, Colleen E, TOOLING SUPERVISOR 06/14/2024 Unscheduled Encounter Cardiology at [place] [phone] Ross Corbin PA Cardiac resynchronization therapy defibrillator (GAS ENGINEER-D) in place [Z95.810] 06/13/2024 9:00 AM EST - 06/13/2024 10:00 AM EST Surgery Medical Anthropology Director [place] [phone] Nuha Shen MD CARDIAC CATHETERIZATION 06/08/2024 Ophth Exam Ophthalmology at [place] [phone] Yumiko De La Torre, COT 06/03/2024 [place] [phone] Unknown 06/03/2024 Travel 06/02/2024 11:09 PM EDT - 06/21/2024 1:07 PM EST Hospital Encounter Heart and Vascular Unit Level 4 [place] [phone] Nuha Shen MD Costa, Salvatore P, MD Bernas, Monika A, MD Flint, Danette L, MD Rassias, MD Freedom Lopez Henry J, MD ST elevation myocardial infarction (STEMI), unspecified artery; Coronary artery disease involving [place] coronary artery of [place] heart without angina pectoris; S/P CABG x 3 Discharge Disposition: Home with [facility] 06/02/2024 11:00 PM EDT - 06/03/2024 12:18 AM EDT Surgery [place] [phone] Nuha Shen MD CARDIAC CATHETERIZATION 06/02/2024 External [place] [phone] 06/02/2024 Notes [place] [address] Sascha Silva MD from Last 3 Months Social History Tobacco Use Types Packs/Day Years Used Date Smoking Tobacco: Former Cigarettes Smokeless Tobacco: Never Tobacco Cessation:Counseling Given: Not Answered [facility] [place] Utilities Answer Date Recorded In the past 12 months has th e [employer], gas, oil, or water company threatened to shut off services in your home? No 08/16/2024 Hunger Vital Sign Answer Date Recorded Within the past 12 months, y ou worried that your food would run out before you got the money to buy more. Never true 08/16/19 25 Within the past 12 months, t he food you bought just didn't last and you didn't have money to get more. Never true 08/16/2024 PRAPARE - Transportation Answer Date Re corded In the past 12 months, has l ack of transportation kept you from medical appointments or from getting medications? No 08/04 In the past 12 months, has l ack of transportation kept you from meetings, work, or from getting things needed for daily living? No 08/16/2024 Housing Stability Vital Sign Answer Homero e Recorded In the last 12 months, was t here a time when you were not able to pay the mortgage or rent on time? No 08/16/2024 In the past 12 months, how m any times have you moved where you were living? 0 08/16/2024 At any time in the past 12 m [facility], were you homeless or living in a nursing home (including now)? No 08/16/2024 IPV Inpatient Questions Answer Date Recorded Does Anyone Try to Keep You From Having Contact with Others or Doing Things Outside Your Home? no 08/14/2024 Feels Threatened by Someone no 08/04 Feels Unsafe at Home or Work/School no 08/14/2024 Physical Signs of Abuse Present no 08/14/2024 Sex and Gender Information Value Date Recorded Sex Assigned at Not on file Gender Identity Not on file Sexual Orientation Not on file Last Filed Vital Signs Vital Sign Reading Time Taken Comments Blood Pressure 109/69 08/16/2024 12:04 PM EST Pulse 80 08/16/2024 12:04 PM EST Temperature 36.6 ??C (97.9 ??F) 08/16/2024 1 2:04 PM EST Respiratory Rate 18 08/16/2024 12:0 4 PM EST Oxygen Saturation 98% 08/16/2024 12: 04 PM EST Inhaled Oxygen Concentration - - Weight 93.4 kg (205 lb 14.6 oz) 08/16/2024 6:00 AM EST Height 167.6 cm (5' 6) 08/14/2024 8:00 PM EST Body Mass Index 33.23 08/14/2024 8:00 PM EST Plan of Treatment Upcoming Encounters Date Type Department Care Team (Late st Contact Info) Description 09/29/2024 2:00 PM EST Office Visit Cardiology at [address] [phone] Moi Falcon MD [facility] [place] [address] Health Maintenance Due Date Last Done Comments CT Colonography 1955 Colonoscopy 1957 Colorectal Cancer Screening 1957 FIT DNA 1957 FIT 1957 Sigmoidoscopy (10 year) with FIT yearly 1957 Sigmoidoscopy 1957 DM Opthalmology Exam 1967 DM Urine Microalbumin yearly 1967 Hepatitis C Screening 1975 Pneumoccocal Vaccine: 50+ (1 of 2 - PCV) 1976 Tetanus/Diphtheria/Pertussis Vaccines (1 - Tdap) 1976 Zoster vaccine (1 of 2) 2007 Advance Directive 2012 RSV Vaccine (1 - Risk 60-74 years 1-dose series) 2017 AAA Screen 2022 Covid-19 Vaccine (1 - 2023-2 5 season) 2024 Influenza (Flu) vaccine (1 o f 1 - Influenza standard series) 04/04/2024 DM Hemoglobin A1c 6 month 02/11/2025 08/14/2024, 10/2023 DM Creatinine yearly 08/16/2025 08/16/2024, 08/15/2024, 06/21/2024, Additional history exists Lipid Screening Discontinued 06/03/2024 Diabetes Screening (HgbA1C o r Glucose) Discontinued 08/16/2024, 08/15/2024, 08/14/2024, Additional history exists Medical Devices Implanted Type Area Warp Placer Device Identifier Shelf Expiration Date Model / Serial / Lot t Jacob Mri Quad Crtd-06/16/2019 Implanted:06/16/2019 (Quantity not on file) Cardiac Resynchronizati on Therapy - Defibrillator Chest Medtronic Cardio - [id number] / [id number] / Description:When scanned at [facility] ([place]), this SureScan System ([id number] and leads 4076, 6935M, and 4298) can [...] Clip 35mm Closure Exclusion System Preloaded Atriclip ([id number]) (Autoreq) - [id number] Implanted:Qty: 1 on 06/14/2024 by Wendi Loja MD at [facility] IMPLANTS N/A: Heart ATRICURE - ATRICURE 03/04/2027 [id number] / / [id number] Cable,Cut,Edg,Blnt,S s,3tpr ([id number]) - [id number] Implanted:Qty: 1 on 06/14/2024 by Wendi Loja MD at [facility] IMPLANTS Midline: Sternum [employer] - [id number] 09/10/2028 [id number] / / [id number] Mdt 4076 Capsurefix Novus Lead-06/16/2019 Implanted:Qty: 1 on 06/16/2019 Lead Chest Medtronic Cardio - [id number] / [id number] / Description:Atrial Lead 4076 See Generator Tab for MRI Conditions Octaviano Hawkins RT (R)(MR) 06/04/2024 Janett 6935m Lead-06/16/2019 Implanted:Qty: 1 on 06/16/2019 Lead Chest Medtronic Cardio - [id number] / [id number] / Description:RV Lead See Generator Tab for MRI Conditions Octaviano Hawkins RT (R)(MR) 06/04/2024 Janett [id number] Attain Performa Lead-06/16/2019 Implanted:Qty: 1 on 06/16/2019 Lead Chest Medtronic Cardio - [id number] / [id number] / Description:LV Lead See Generator Tab for MRI Conditions Octaviano Hawkins RT (R)(MR) 06/04/2024 Procedures Procedure Name Priority Date/Time Associated Diagnosis Comments POC, GLUCOSE Routine 08/16/2024 12:03 PM EST EKG 12-LEAD Routine 08/16/2024 8:44 AM EST Elevated troponin POC, GLUCOSE Routine 08/16/2024 8:20 AM EST SCAN DOC: TELEMETRY STRIPS 08/16/2024 8:07 AM EST SCAN DOC: TELEMETRY STRIPS 08/16/2024 7:52 AM EST MAGNESIUM Routine 08/16/2024 12:32 AM EST BASIC METABOLIC PANEL Routine 08/16/2024 12:32 AM EST CBC (WITH DIFF) Routine 08/16/2024 12:32 AM EST HEPARIN (UNFRACTIONATED) LEVEL Timed 08/16/2024 12:32 AM EST SCAN DOC: TELEMETRY STRIPS 08/15/2024 9:28 PM EST POC, GLUCOSE Routine 08/15/2024 8:09 PM EST SCAN DOC: TELEMETRY STRIPS 08/15/2024 7:42 PM EST HEPARIN (UNFRACTIONATED) LEVEL Timed 08/15/2024 7:06 PM EST POC, GLUCOSE Routine 08/15/2024 5:08 PM EST POC, GLUCOSE Routine 08/15/2024 3:29 PM EST ECHO COMPLETE W CONTRAST Routine 08/15/2024 12:57 PM EST Elevated troponin POC, GLUCOSE Routine 08/15/2024 12:48 PM EST HEPARIN (UNFRACTIONATED) LEVEL Timed 08/15/2024 11:32 AM EST POC, GLUCOSE Routine 08/15/2024 11:15 AM EST SCAN DOC: TELEMETRY STRIPS 08/15/2024 8:01 AM EST SCAN DOC: TELEMETRY STRIPS 08/15/2024 8:01 AM EST POC, GLUCOSE Routine 08/15/2024 8:01 AM EST BASIC METABOLIC PANEL Add-On 08/15/2024 5:00 AM EST TROPONIN - SINGLE Timed 08/15/2024 5:0 0 AM EST HEPARIN (UNFRACTIONATED) LEVEL Timed 08/15/2024 4:59 AM EST FERRITIN STAT 08/15/2024 4:59 AM EST CBC (WITH DIFF) Routine 08/15/2024 4:59 AM EST EKG 12-LEAD STAT 08/14/2024 11:57 PM EST Elevated troponin POC, GLUCOSE Routine 08/14/2024 11:56 PM EST IRON AND TIBC STAT Add-On 08/14/2024 9:40 PM EST HEPARIN (UNFRACTIONATED) LEVEL Timed 08/14/2024 9:40 PM EST HEMOGLOBIN A1C STAT 08/14/2024 9:40 PM EST CBC (WITH DIFF) Routine 08/14/2024 9:40 PM EST TROPONIN - SINGLE STAT 08/14/2024 9:4 0 PM EST SCAN DOC: TELEMETRY STRIPS 08/14/2024 8:13 PM EST SCAN DOC: TELEMETRY STRIPS 08/14/2024 8:03 PM EST MISC EXTERNAL CARDIOLOGY RESULT Routine 08/13/2024 1:38 [...] EST XR CHEST PA AND LATERAL Routine 06/17/2024 1:46 PM EST POC, GLUCOSE Routine 06/17/2024 [...] 8:39 AM EST Unlisted Cardiac Surg Procedure ([id number]) 06/14/2024 7:34 AM EST 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) 06/14/2024 7:34 AM EST CAD Endoscopy W/Video-Asst Vein [place], Cabg ([id number]) 06/14/2024 7:34 AM EST CAD Cabg, Artery-Vein, Two (06466) 06/14/2024 7:34 AM EST CAD Cabg, Arterial, Single ([id number]) 06/14/2024 7:34 AM EST CAD TRANSESOPHAGEAL ECHOCARDIOGRAM IN THE OR Routine 06/14/2024 7:20 AM EST Coronary artery disease involving [place] coronary artery of [place] heart without angina pectoris POC, GLUCOSE Routine [...] 10: 35 AM EST CARDIAC CATHETERIZATION Routine 06/13/2024 9:02 AM EST POTASSIUM Routine 06/13/2024 7:48 [...] EST XR CHEST PA AND LATERAL Routine 06/07/2024 7:03 AM EST POC, GLUCOSE Routine 06/07/2024 [...] 06/03/2024 1:08 AM EDT CARDIAC CATHETERIZATION Routine 06/03/2024 12:42 AM EDT POC, GLUCOSE Routine 06/02/2024 11:31 PM EDT [facility] EXTERNAL CARDIOLOGY RESULT Routine 06/02/2024 9:54 PM EDT from Last 3 Months Results * (ABNORMAL) POC, GLUCOSE (08/16/2024 12:03 PM EST) Only the most recent of143 resultswithin the time period is included. Pathologist [facility] Glucometer, POC 263(H) 65 - 199 mg/dL 08/16/2024 12:03 PM EST [facility] Comment:Supplemental ranges: <140 mg/dL before meals <180 mg/dL all other times of the day. Blood CAPILLARY BLOOD / Unknown 08/16/2024 12:03 PM EST 08/16/2024 12:03 PM EST Evelyn Mckinnon MD POINT OF CARE TEST O RDERABLES [facility] [place] [address] * EKG 12 Lead (08/16/2024 8:44 AM EST) Only the most recent of4 resultswithin the time period is included. Ventricular rate 80 BPM MUSE SYSTEM Atrial Rate 80 BPM MUSE SYSTEM P-R Interval 180 ms MUSE SYSTEM QRS Duration 90 ms MUSE SYSTEM Q-T Interval 374 ms MUSE SYSTEM QTC Calculated (Bezet) 431 ms MUSE SYSTEM Calculated P [place] 63 degrees MUSE SYSTEM Calculated R [place] 22 degrees MUSE SYSTEM Calculated T [place] 129 degrees MUSE SYSTEM INTERPRETATION AV dual-paced rhythm Abnormal ECG When compared with ECG of 14-AUG-2024 23:57, No significant change was found Confirmed by MD JEAN, KRISS ([id number]) on 08/16/2024 9:37:14 AM MUSE SYSTEM 08/16/2024 8:44 AM EST 08/16/2024 9:37 AM EST Evelyn Mckinnon MD ECG ORDERABLES MUSE SYSTEM * Scan Doc: Telemetry Strips (08/16/2024 8:07 AM EST) Only the most recent of67 resultswithin the time period is included. Narrative 08/16/2024 8:07 AM EST Ordered by an unspecified provider. Scanning Provider MEDIA MGR SCAN EXT O RDR/RSLT * Heparin (unfractionated) Level (08/16/2024 12:32 AM EST) Only the most recent of21 resultswithin the time period is included. UF Heparin 0.32 IU/mL 08/16/2024 12:55 AM EST [facility] Comment: Heparin (anti-Xa) [...] BLOOD SPECIMEN / Unknown Venipuncture / Unknown 08/16/2024 12:32 AM EST 08/16/2024 12:41 AM EST Octaviano Quiñones MD HEMATOLOGY ORDERABLE S [facility] [place] [address] * (ABNORMAL) CBC (with Diff) (08/16/2024 12:32 AM EST) Only the most recent of16 resultswithin the time period is included. White Blood Cell 8.55 4.00 - 9.50 x10(3)/mc L 08/16/2024 12:[address] [facility] Red Blood Cell 4.17(L) 4.58 - 5.54 x10(6)/mc L 08/16/2024 12:[address] [facility] Hemoglobin 12.3(L) 13.7 - 16.5 g/dL 08/16/2024 12:[address] [facility] Hematocrit 37.9(L) 40.5 - 48.5 % 08/16/2024 12:[address] [facility] Mean Cell Volume 90.9 82.9 - 93.1 fL 08/16/2024 12:[address] [facility] Mean Cell Hemoglobin 29.5 27.5 - 32.1 pg 08/16/2024 12:[address] [facility] Mean Cell Hemoglobin Concentration 32.5 32.0 - 35.7 g/dL 08/16/2024 12:[address] [facility] Platelet 192 145 - 357 x10(3)/mc L 08/16/2024 12:[address] [facility] Mean Platelet Volume 9.5 7.6 - 12.9 fL 08/16/2024 12:[address] [facility] RDW Standard Deviation 44.7 36.0 - 45.0 fL 08/16/2024 12:[address] [facility] RDW coefficient of variation 13.2 11.4 - 13.8 % 08/16/2024 12:[address] [facility] NRBC% auto 0.0 % 08/16/2024 12:[address] [facility] NRBC Absolute <0.01 <0.01 x10(3)/mc L 08/16/2024 12:[address] [facility] Neutrophil % 53.8 % 08/16/2024 12:[address] [facility] Neutrophil Absolute (ANC) - Automated 4.61 1.70 - 6.10 x10(3)/mc L 08/16/2024 12:[address] [facility] Lymph % 30.1 % 08/16/2024 12:[address] [facility] Lymph Absolute 2.57 0.90 - 3.20 x10(3)/mc L 08/16/2024 12:[address] [facility] Monocyte % 10.2 % 08/16/2024 12:[address] [facility] Monocyte Absolute 0.87 0.30 - 0.90 x10(3)/mc L 08/16/2024 12:[address] [facility] Eos % 4.8 % 08/16/2024 12:[address] [facility] Eos Absolute 0.41(H) 0.00 - 0.40 x10(3)/mc L 08/16/2024 12:[address] [facility] Basophil % 0.7 % 08/16/2024 12:[address] [facility] Baso Absolute 0.06 0.00 - 0.10 x10(3)/mc L 08/16/2024 12:[address] [facility] Immature Gran % 0.4 % 12:[address] [facility] Immature Gran Absolute <0.04 0.00 - 0.04 x10(3)/mc L 08/16/2024 12:[address] [facility] Blood VENOUS BLOOD SPECIMEN / Unknown Venipuncture / Unknown 08/16/2024 12:32 AM EST 08/16/2024 12:41 AM EST Octaviano Quiñones MD HEMATOLOGY ORDERABLE S Performing Organization Address City/[facility] Hospital/ZIP Co de Phone Number [facility] [place] [address] * Magnesium (08/16/2024 12:32 AM EST) Only the most recent of13 resultswithin the time period is included. Magnesium 0.85 0.69 - 1.07 mMol/L 08/16/2024 1:[address] [facility] Blood VENOUS BLOOD SPECIMEN / Unknown Venipuncture / Unknown 08/16/2024 12:32 AM EST 08/16/2024 12:41 AM EST Evelyn Mckinnon MD CHEMISTRY ORDERABLES Performing Organization Address [facility] Co de Phone Number [facility] [place] [address] * (ABNORMAL) Basic Metabolic Panel (08/16/2024 12:32 AM EST) Only the most recent of22 resultswithin the time period is included. Glucose 210(H) 65 - 199 mg/dL 08/16/2024 1:[address] [facility] Comment:Glucose Concentratio n >=200 mg/dL plus symptoms is consistent with Diabetes Mellitus. Blood Urea Nitrogen 23(H) 10 - 20 mg/dL 08/16/2024 1:[address] [facility] Creatinine 1.02 0.80 - 1.50 mg/dL 08/16/2024 1:[address] [facility] Sodium 136 135 - 145 mMol/L 08/16/2024 1:[address] [facility] Potassium 4.3 3.5 - 5.0 mMol/L 08/16/2024 1:[address] [facility] Chloride 101 98 - 107 mMol/L 08/16/2024 1:[address] [facility] Carbon Dioxide 25 22 - 31 mMol/L 08/16/2024 1:12 AM EST [facility] Anion Gap 10 5 - 15 mMol/L 08/16/2024 1:12 AM EST [facility] Calcium 8.9 8.5 - 10.5 mg/dL 08/16/2024 1:12 AM EST [facility] Est Glomerular Filtration Rate - Male 81 mL/min/1. 73 m?? 08/16/2024 1:12 AM EST [facility] Comment: This patient's [...] BLOOD SPECIMEN / Unknown Venipuncture / Unknown 08/16/2024 12:32 AM EST 08/16/2024 12:41 AM EST Evelyn Mckinnon MD CHEMISTRY ORDERABLES [facility] [place] [address] * ECHO COMPLETE W CONTRAST (08/15/2024 12:57 PM EST) EF 31 HEARTLAB SYSTEM Anatomical Region Laterality Modality Cardiac Other 08/15/2024 12:0 0 PM EST Narrative 08/15/2024 1:42 [place] [address] [place] [address] ? Echocardiogram Report Name: GEORGE MEHTA ?Study Date: 08/15/2024 12:00 PMBP: 118/72 mmHg : 1955 ? Height: 168 cm ? Account: [id number] Age: 69 yrs ? Weight: 93 kg Gender: Male ?BSA: 2.0 m2 Ordering Physician: OCTAVIANO QUIÑONES Referring Physician: ANA COLON Performed By: Sandra Worthy RDCS Reason For Study: Elevated troponin Exam Location: [facility]. Interpretation Summary 1. Left ventricular systolic function is severely reduced. The left ventricular ejection fraction is 31% by Matos's biplane. There is regional variation as coded. There is Grade II LV diastolic dysfunction (abnormal relaxation with elevated left ventricular filling pressure). 2. Right ventricular systolic function is normal. 3. Aortic valve sclerosis without stenosis 4. Compared with images of 05/2024, systolic function as wall motion abnormalities are similar. (Side by side images at end of report). Procedure Complete-[id number]. Image enhancement Definity was used for left ventricular opacification. Suboptimal quality. Left Ventricle Wall thickness is normal. Left ventricle is severely dilated. Left ventricular systolic function is severely reduced. The left ventricular ejection fraction is 31% by Matos's biplane. There are segmental wall motion abnormalities. There is no left ventricular thrombus. Right Ventricle The right ventricle is of normal size. There is a CIED lead in the right ventricle. Right ventricular systolic function is normal. Left Atrium The left atrium is mildly dilated. No abnormality of the interatrial septum is identified. Right Atrium The right atrium is probably normal in size. Aortic Valve The aortic valve is tricuspid. The aortic valve is mildly thickened. The aortic valve is mildly calcified. There is aortic valve sclerosis without stenosis. There is no aortic regurgitation. Mitral Valve The mitral valve leaflets are thickened. The mitral valve leaflets are calcified. There is mitral annular calcification. The estimated mean gradient across the mitral valve is 3.1 mmHg . There is trace mitral regurgitation. Tricuspid Valve The tricuspid valve is structurally and functionally normal. There is mild tricuspid regurgitation. Pulmonic Valve The pulmonic valve is not well visualized. Great Arteries The diameter at the level of the sinuses of Valsalva is 3.2 cm. The maximum diameter of the proximal ascending aorta is 3.3 cm. Venous Inferior vena cava is normal in size. Inferior vena cava collapse greater than 50% with respiration. Pericardium/Pleural A pericardial fat pad is present. There is no pericardial effusion. Hemodynamics The peak right ventricular systolic pressure is 28.8 mmHg . The estimated right atrial pressure is 3mmHg. There is Grade II LV diastolic dysfunction (abnormal relaxation with elevated left ventricular filling pressure). Ejection Fraction ?2D Measurements ? Volumes EF(MOD-bp): 31.4 % ?IVSd: 1.3 cm ? LAV(MOD- bp) Indexed: ?LVIDd: 5.9 cm ?LVIDs: 4.8 cm ?28.4 ml/m2 ?LVPWd: 1.2 cm ?RA A4Cs_phl: 15.0 cm2 ? EDV(MOD-bp) Indexed: ?RWT: 0.41 {ratio} ?LV mass(C)d: 333.6 grams ? 104.6 ml/m2 ?LV mass(C)dI: 164.7 grams/m2 ?? ESV(MOD- bp) Indexed: ?Ao root diam: 3.2 cm ? 71.7 ml/m2 ?Ao root diam index: 1.6 ?SV(LVOT): 52.1 ml ?asc Aorta Diam: 3.3 cm ?LVOT diam: 2.2 cm ?SI(LVOT): 25.7 ml/m2 Doppler LV V1 VTI: 13.5 cm MV E max darrius: 87.0 cm/sec MV A max darrius: 95.9 cm/sec MV E/A: 0.91 MV dec time: 0.17 sec MV mean P.1 mmHg Lat Peak E' Darrius: 4.3 cm/sec E/e' (lat): 20.3 Med Peak E' Darrius: 4.9 cm/sec E/e' (med): 17.8 E/e' Average: 19.1 TR max darrius: 253.9 cm/sec RVSP(TR): 28.8 mmHg I ?WMSI = 2.25 ? % Normal = 0 ?Segments ??Size X - Cannot ?2 - ?4 - ?1-2 ? small Interpret ?1 - Normal ?? Hypokinetic 3 - Akinetic Dyskinetic ?? 3-5 ? moderate 5 - ? 6-14 ?large Aneurysmal ?15-16 ?? diffuse Procedure Note Jmi Benites MD - 08/15/2024 [address] [place] [address] Echocardiogram Report Name: GEORGE MEHTA Raad Study Date: 2:00 PMBP: 118/72 mmHg : 1955 Height: 168 cm Account: [id number] Age: 69 yrs Weight: 93 kg Gender: Male BSA: 2.0 m2 Ordering Physician: OCTAVIANO QUIÑONES Referring Physician: ANA COLON Performed By: Sandra Worthy RDCS Reason For Study: Elevated troponin Exam Location: [facility]. Interpretation Summary 1. Left ventricular systolic function is severely reduced. The leftventricular ejection fraction is 31% by Matos's biplane. There is regional variationas coded. There is Grade II LV diastolic dysfunction (abnormal relaxationwith elevated left ventricular filling pressure). 2. Right ventricular systolic function is normal. 3. Aortic valve sclerosis without stenosis 4. Compared with images of 05/2024, systolic function as wall motionabnormalities are similar. (Side by side images at end of report). Procedure Complete-[id number]. Image enhancement Definity was used for left ventricular opacification. Suboptimal quality. Left Ventricle Wall thickness is normal. Left ventricle is severely dilated. Leftventricular systolic function is severely reduced. The left ventricular ejectionfraction is 31% by Matos's biplane. There are segmental wall motion abnormalities.There is no left ventricular thrombus. Right Ventricle The right ventricle is of normal size. There is a CIED lead in the right ventricle. Right ventricular systolic function is normal. Left Atrium The left atrium is mildly dilated. No abnormality of the interatrialseptum is identified. Right Atrium The right atrium is probably normal in size. Aortic Valve The aortic valve is tricuspid. The aortic valve is mildly thickened. Theaortic valve is mildly calcified. There is aortic valve sclerosis withoutstenosis. There is no aortic regurgitation. Mitral Valve The mitral valve leaflets are thickened. The mitral valve leaflets arecalcified. There is mitral annular calcification. The estimated mean gradient acrossthe mitral valve is 3.1 mmHg . There is trace mitral regurgitation. Tricuspid Valve The tricuspid valve is structurally and functionally normal. There ismild tricuspid regurgitation. Pulmonic Valve The pulmonic valve is not well visualized. Great Arteries The diameter at the level of the sinuses of Valsalva is 3.2 cm. Themaximum diameter of the proximal ascending aorta is 3.3 cm. Venous Inferior vena cava is normal in size. Inferior vena cava collapse greaterthan 50% with respiration. Pericardium/Pleural A pericardial fat pad is present. There is no pericardial effusion. Hemodynamics The peak right ventricular systolic pressure is 28.8 mmHg . The estimatedright atrial pressure is 3mmHg. There is Grade II LV diastolic dysfunction(abnormal relaxation with elevated left ventricular filling pressure). Ejection Fraction 2D Measurements Volumes EF(MOD-bp): 31.4 % IVSd: 1.3 cm LAV(MOD-bp)Indexed: LVIDd: 5.9 cm LVIDs: 4.8 cm 28.4 ml/m2 LVPWd: 1.2 cm RA A4Cs_phl: 15.0cm2 EDV(MOD-bp)Indexed: RWT: 0.41 {ratio} LV mass(C)d: 333.6 grams 104.6 ml/m2 LV mass(C)dI: 164.7 grams/m2 ESV(MOD-bp)Indexed: Ao root diam: 3.2 cm 71.7 ml/m2 Ao root diam index: 1.6 SV(LVOT): 52.1ml asc Aorta Diam: 3.3 cm LVOT diam: 2.2 cm SI(LVOT): 25.7ml/m2 Doppler LV V1 VTI: 13.5 cm MV E max darrius: 87.0 cm/sec MV A max darrius: 95.9 cm/sec MV E/A: 0.91 MV dec time: 0.17 sec MV mean P.1 mmHg Lat Peak E' Darrius: 4.3 cm/sec E/e' (lat): 20.3 Med Peak E' Darrius: 4.9 cm/sec E/e' (med): 17.8 E/e' Average: 19.1 TR max darrius: 253.9 cm/sec RVSP(TR): 28.8 mmHg I WMSI = 2.25 % Normal = 0 SegmentsSize X - Cannot 2 - 4 - 1-2small Interpret 1 - Normal Hypokinetic 3 - Akinetic Dyskinetic 3-5moderate 5 - 6-14large Aneurysmal 15-16diffuse Octaviano Quiñones MD ECHO ORDERABLES * (ABNORMAL) Troponin - Single (08/15/2024 5:00 AM EST) Only the most recent of3 resultswithin the time period is included. Troponin-T, High Sensitivity 27(H) <=22 ng/L 08/15/2024 5:33 AM EST [facility] Comment: This patient's [...] can be found in the [facility] Test Catalog Troponin - [email or web address] Reference: Fourth [place] Definition of Myocardial Infarction. Journal of the [place] 2018;72:5798-4798 Blood VENOUS BLOOD SPECIMEN / Unknown Venipuncture / Unknown 08/15/2024 5:00 AM EST 08/15/2024 5:04 AM EST Octaviano Quiñones MD CHEMISTRY ORDERABLES [facility] [place] [address] * Ferritin (08/15/2024 4:59 AM EST) Pathologist [facility] Ferritin 70 31 - 409 ng/ml 08/15/2024 6:09 AM EST [facility] Blood VENOUS BLOOD SPECIMEN / Unknown Venipuncture / Unknown 08/15/2024 4:59 AM EST 08/15/2024 5:04 AM EST Octaviano Quiñones MD CHEMISTRY ORDERABLES Performing Organization Address City/Va Hospital/ZIP Co de Phone Number [facility] [place] [address] * (ABNORMAL) Iron and TIBC (08/14/2024 9:40 PM EST) Pathologist [facility] Iron 62 45 - 160 mcg/dL 08/15/2024 2:18 AM EST [facility] TIBC 354 250 - 450 mcg/dL 08/15/2024 2:18 AM EST [facility] Iron Saturation 18(L) 20 - 50 % 2:[address] [facility] Blood VENOUS BLOOD SPECIMEN / Unknown Venipuncture / Unknown 08/14/2024 9:40 PM EST 08/14/2024 9:45 PM EST Octaviano Quiñones MD CHEMISTRY ORDERABLES Performing Organization Address City/Va Hospital/ZIP Co de Phone Number [facility] [place] [address] * (ABNORMAL) Hemoglobin A1c (08/14/2024 9:40 PM EST) Only the most recent of2 resultswithin the time period is included. [facility] Hemoglobin A1c 6.9(H) 4.3 - 5.6 % 08/14/2024 10:06 PM EST [facility] Comment: Per ADA [...] red blood cell turnover may not be banking representative of glycemic control. Reference Interval: 4.3 - 5.6% 5.7 - 6.4%: Consistent with prediabetes >=6.5%: Consistent with diagnosis of diabetes mellitus Estimated Average Glucose 151 mg/dL 08/14/2024 10:06 PM EST [facility] Blood VENOUS BLOOD SPECIMEN / Unknown Venipuncture / Unknown 08/14/2024 9:40 PM EST 08/14/2024 9:46 PM EST Octaviano Quiñones MD CHEMISTRY ORDERABLES [facility] [place] [address] * External Cardiology Result (08/13/2024 1:38 PM EST) Anatomical Region Laterality Modality Other Historical Provider EXTERNAL CARDIOLO GY RESULT * XR Chest PA & Lateral (Generic) (06/17/2024 1:46 PM EST) Only the most recent of2 resultswithin the time period is included. WORKSTATION ID [id number] RAD Anatomical Region Laterality Modality Chest N/A [...] who have questions please contact the health medical care administrator that requested your imaging first. ? Narrative [...] patients who have questions please contactthe health medical care administrator that requested your imaging first. Keila Hanley APRN IMG DX ORDERABLES * (ABNORMAL) Hemogram (06/17/2024 2:39 AM EST) Only the most recent of2 resultswithin the time period is included. White Blood Cell 13.53(H) 4.00 - 9.50 x10(3)/mc L 06/17/2024 2:53 AM EST [facility] Red Blood Cell 3.55(L) 4.58 - 5.54 x10(6)/mc L 06/17/2024 2:[address] [facility] Hemoglobin 10.8(L) 13.7 - 16.5 g/dL 06/17/2024 2:[address] [facility] Hematocrit 33.0(L) 40.5 - 48.5 % 06/17/2024 2:[address] [facility] Mean Cell Volume 93.0 82.9 - 93.1 fL 06/17/2024 2:[address] [facility] Mean Cell Hemoglobin 30.4 27.5 - 32.1 pg 06/17/2024 2:[address] [facility] Mean Cell Hemoglobin Concentration 32.7 32.0 - 35.7 g/dL 06/17/2024 2:[address] [facility] Platelet 101(L) 145 - 357 x10(3)/mc L 06/17/2024 2:[address] [facility] Mean Platelet Volume 10.4 7.6 - 12.9 fL 06/17/2024 2:[address] [facility] RDW Standard Deviation 48.4(H) 36.0 - 45.0 fL 06/17/2024 2:[address] [facility] RDW coefficient of variation 14.1(H) 11.4 - 13.8 % 06/17/2024 2:[address] [facility] NRBC% auto 0.0 % 06/17/2024 2:[address] [facility] NRBC Absolute <0.01 <0.01 x10(3)/mc L 06/17/2024 2:[address] [facility] Blood VENOUS BLOOD SPECIMEN / Unknown Venipuncture / Unknown 06/17/2024 2:39 AM EST 06/17/2024 2:43 AM EST Wendi Loja MD HEMATOLOGY ORDERABLE S [facility] [place] [address] * Lactate, Whole Blood (06/17/2024 2:39 AM EST) Only the most recent of3 resultswithin the time period is included. Lactate, Whole Blood 1.3 0.5 - 2.2 mmol/L 06/17/2024 2:46 AM EST [facility] Blood VENOUS BLOOD SPECIMEN / Unknown Venipuncture / Unknown 06/17/2024 2:39 AM EST 06/17/2024 2:43 AM EST Wendi Loja MD CHEMISTRY ORDERABLES Performing Organization Address City/Va Hospital/ZIP Co de Phone Number [facility] [place] [address] * (ABNORMAL) Cooximetry, POC (06/15/2024 9:31 AM EST) Only the most recent of5 resultswithin the time period is included. pO2, Coox 38 mmHg 06/15/2024 9:[address] [facility] Hemoglobin, Coox 12.9(L) 13.7 - 16.5 g/dL 06/15/2024 9:[address] [facility] Oxyhemoglobin, Coox 72.1 % 06/15/2024 9:[address] [facility] Carboxyhemoglo bin, Coox 0.9 % 06/15/2024 9:[address] [facility] Comment: Nonsmokers: 0.5-1.5% COHB ?? Smokers: Variable ??but usually less than 10% ?? Toxic: 20-30% COHB ?? Lethal: Greater than 60% COHB Methemoglobin, Coox 0.3 <=1.5 % 06/15/2024 9:[address] [facility] Blood (Mixed Venous) 06/15/2024 9:31 AM EST 06/15/2024 9:34 AM EST Wendi Loja MD POINT OF CARE TEST O RDERABLES Performing Organization Address City/[facility] Hospital/ZIP Co de Phone Number [facility] [place] [address] * (ABNORMAL) Blood Gas, Arterial POC (06/15/2024 9:19 AM EST) Only the most recent of12 resultswithin the time period is included. pH, Arterial 7.31(L) 7.35 - 7.45 06/15/2024 9:[address] [facility] PCO2, Arterial 36 35 - 45 mmHg 06/15/2024 9:[address] [facility] PO2, Arterial 94 85 - 104 mmHg 06/15/2024 9:[address] [facility] Bicarbonate, Arterial 18.0(L) 20.0 - 26.0 mmol/L 06/15/2024 9:[address] [facility] Base Excess, Arterial -8.2(L) -3.0 - 3.0 mmol/L 06/15/2024 9:[address] [facility] Hemoglobin, Arterial 12.7(L) 13.7 - 16.5 g/dL 06/15/2024 9:[address] [facility] Oxyhemoglobin, Arterial 96.0 94.0 - 97.0 % 06/15/2024 9:[address] [facility] Carboxyhemoglobin , Arterial 0.5 % 06/15/2024 9:[address] [facility] Comment: Nonsmokers: 0.5-1.5% COHB ?? Smokers: Variable ??but usually less than 10% ?? Toxic: 20-30% COHB ?? Lethal: Greater than 60% COHB Methemoglobin, Arterial 0.3 <=1.5 % 06/15/2024 9:[address] [facility] Sodium, Arterial 136 135 - 145 mmol/L 06/15/2024 9:[address] [facility] Potassium, Arterial 4.0 3.5 - 5.0 mmol/L 06/15/2024 9:[address] [facility] Chloride, Arterial 106 98 - 107 mmol/L 06/15/2024 9:[address] [facility] Lactate, Arterial 1.7 0.5 - 2.2 mmol/L 06/15/2024 9:21 AM EST [facility] Flow Rate 2.0 L/min 06/15/2024 9:21 AM EST [facility] IONIZED CALCIUM, ARTERIAL 1.14(L) 1.15 - 1.33 mmol/L 06/15/2024 9:21 AM EST [facility] Glucose, Arterial 193 65 - 199 mg/dL 06/15/2024 9:21 AM EST [facility] Comment:Glucose Concentratio n >=200 mg/dL plus symptoms is consistent with Diabetes Mellitus. Blood ARTERIAL BLOOD / Unknown 06/15/2024 9:19 AM EST 06/15/2024 9:20 AM EST Wendi Loja MD POINT OF CARE TEST O RDERABLES [facility] [place] [address] * XR Chest One View (06/15/2024 6:31 AM EST) Only the most recent of4 resultswithin the time period is included. Pathologist [employer] WORKSTATION ID [id number] RAD Anatomical Region Laterality Modality Chest N/A [...] who have questions please contact the health medical care administrator that requested your imaging first. ? Narrative [...] patients who have questions please contactthe health medical care administrator that requested your imaging first. Wendi Loja MD IMG DX ORDERABLES * Potassium (06/14/2024 11:28 PM EST) Only the most recent of13 resultswithin the time period is included. Potassium 4.1 3.5 - 5.0 mMol/L 06/14/2024 11:54 PM EST [facility] Blood VENOUS BLOOD SPECIMEN / Unknown Venipuncture / Unknown 06/14/2024 11:28 PM EST 06/14/2024 11:34 PM EST Wendi Loja MD CHEMISTRY ORDERABLES Performing Organization Address City/Va Hospital/[place] [address] * (ABNORMAL) Hemoglobin (06/14/2024 6:19 PM EST) Hemoglobin 13.1(L) 13.7 - 16.5 g/dL 06/14/2024 7:08 PM EST [facility] Blood VENOUS BLOOD SPECIMEN / Unknown Venipuncture / Unknown 06/14/2024 6:19 PM EST 06/14/2024 6:28 PM EST Wendi Loja MD HEMATOLOGY ORDERABLE S Performing Organization Address City/[facility] Hospital/ZIP Co de Phone Number [facility] [place] [address] * Prepare RBC (06/14/2024 2:27 PM EST) Status Information Returned [facility] Product Identification RBC [facility] Unit Number [id number] [facility] Product [facility] S5981S10 [facility] Unit Blood Type OPOS [facility] Specimen Expiration Date [facility] Volulme 350 [facility] Issue Date / Time [facility] Status Information Returned [facility] Product Identification RBC [facility] Unit Number [id number] [facility] Product [facility] L1538R16 [facility] Unit Blood Type OPOS [facility] Specimen Expiration Date [facility] Volulme 350 [facility] Issue Date / Time [facility] Blood 06/14/2024 6:2 5 AM EST Haja Byrnes MD BLOOD BANK PRODUCT O RDERABLES [facility] [place] [address] * (ABNORMAL) Platelet count (06/14/2024 12:30 PM EST) Only the most recent of2 resultswithin the time period is included. Platelet 73(L) 145 - 357 x10(3)/mcL 06/14/2024 12:54 PM EST [facility] Blood ARTERIAL BLOOD / Unknown 06/14/2024 12:30 PM EST Comment:Pre-op diagnosis: CAD Wendi Loja MD HEMATOLOGY ORDERABLE S Performing Organization Address [facility] Co de Phone Number [facility] [place] [address] * (ABNORMAL) Hemoglobin and Hematocrit, blood (06/14/2024 12:30 PM EST) Only the most recent of2 resultswithin the time period is included. Hemoglobin 10.9(L) 13.7 - 16.5 g/dL 06/14/2024 12:54 PM EST [facility] Hematocrit 33.5(L) 40.5 - 48.5 % 06/14/2024 12:54 PM EST [facility] Comment:This result has been called to Danielle López by Satya Page on 06/14/2024 12:53:56, and has been read back. Blood ARTERIAL BLOOD / Unknown 06/14/2024 12:30 PM EST 06/14/2024 12:42 PM EST Comment:Pre-op diagnosis: CAD Wendi Loja MD HEMATOLOGY ORDERABLE S [facility] [place] [address] * APTT (06/14/2024 12:30 PM EST) Only the most recent of2 resultswithin the time period is included. Partial Thromboplastin Time 31 25 - 37 sec 06/14/2024 12:57 PM EST [facility] Comment: The PTT is NOT appropriate for heparin monitoring. Use the Anti-Xa level for heparin monitoring (HEP UFH) or LMWH monitoring (HEP LMW). A PTT less than 37 seconds generally indicates adequate hemostasis. Blood ARTERIAL BLOOD / Unknown 06/14/2024 12:30 PM EST 06/14/2024 12:42 PM EST Comment:Pre-op diagnosis: CAD Wendi Loja MD HEMATOLOGY ORDERABLE S Performing Organization Address City/[facility] Hospital/[facility] Co de Phone Number [facility] [place] [address] * (ABNORMAL) Prothrombin Time (06/14/2024 12:30 PM EST) Only the most recent of2 resultswithin the time period is included. Prothrombin Time 16.8(H) 9.4 - 12.5 sec 06/14/2024 12:57 PM EST [facility] International Normalization Ratio 1.5 <=4.9 06/14/2024 12:57 PM EST [facility] Comment: An INR [...] CAD Wendi Loja MD HEMATOLOGY ORDERABLE S [facility] [place] [address] * Fibrinogen (06/14/2024 12:30 PM EST) Fibrinogen 211 200 - 393 mg/dL 06/14/2024 12:57 PM EST [facility] Comment: A fibrinogen level >100 mg/dL is adequate for hemostasis in most patients without underlying bleeding disorders. Blood ARTERIAL BLOOD / Unknown 06/14/2024 12:30 PM EST 06/14/2024 12:42 PM EST Comment:Pre-op diagnosis: CAD Wendi Loja MD HEMATOLOGY ORDERABLE S Performing Organization Address [facility] de Phone Number [facility] [place] [address] * (ABNORMAL) Scan, Peripheral Blood (06/14/2024 11:23 AM EST) RBC Morphology Abnormal 06/14/2024 11:59 AM EST [facility] Platelet Estimate Decreased(A) Normal 06/14/2024 11:59 AM EST [facility] Aretha cells 1-5 /HPF 06/14/2024 11:59 AM EST [facility] Blood ARTERIAL BLOOD / Unknown 06/14/2024 11:23 AM EST 06/14/2024 11:27 AM EST Wendi Loja MD HEMATOLOGY ORDERABLE S Performing Organization Address [facility] Phone Number [facility] [place] [phone] * Surgical Pathology (06/14/2024 9:53 AM EST) Case Report Surgical Pathology Report ? Case: [id number] ? Authorizing Provider: ??Wendi Loja MD ? Collected: ? 06/14/2024 0953 ? Ordering Location: ? Main Operating Room [facility]en ?? Received: ?06/14/2024 1413 ? [facility] ? Hospital ? Pathologist: ? Sandra Salas MD ? Specimens: ?? A) - Soft Tissue Mass, mediastinal mass ? B) - Heart, Atrial Appendage, Left ? 06/18/2024 10:[address] [facility] Final Diagnosis A. Soft Tissue Mass, Mediastinal Mass, Excision: - Atrophic thymic tissue B. Heart, Atrial Appendage, Left, Excision: - Mild myocyte hypertrophy 06/18/2024 10:[address] [facility] Clinical Information A. Soft Tissue Mass, mediastinal mass Soft tissue mass Mediastinal mass B. Heart, Atrial Appendage, Left, *Other - as specified in Clinical Information MARIALUISA 06/18/2024 10:18 AM EST [facility] Gross Description A. Soft Tissue Mass, mediastinal mass. A - Labeled/Fixative : Mediastinal mass, fresh. Quantity/Size: Single, 7.2 x 5.3 x 1.2 cm. Tissue Description: Unoriented, intact portion of soft, rodriguez-yellow, lobulated tissue. The cut surface is homogenously pale-rodriguez, yellow and lobulated. No lesions or nodules are identified. Inking: External surface inked black Sections/Process ing: Aluminum Polisher sections in 4 cassettes labeled A1-A4. cmk B. Heart, Atrial Appendage, Left, . B - Labeled/Fixative : Heart, atrial appendage, left, fresh. Quantity/Size: Single, 3.3 x 1.5 x 0.8 cm. Tissue Description: Portion of heart tissue consisting of rodriguez-white, semitranslucent, smooth endocardium with rodriguez-brown muscular myocardium and thin translucent epicardium with adherent adipose tissue. No areas of discoloration identified. Sections/Process ing: Aluminum Polisher sections in 1 cassette labeled B1. cmk 06/18/2024 10:18 AM EST [facility] Result Note Routine 06/18/2024 10:18 AM EST [facility] Tissue SOFT TISSUE MASS / Unknown 06/14/2024 9:53 AM EST 06/14/2024 2:13 PM EST Comment:Mediastinal mass Tissue specimen (specimen) LEFT ATRIAL APPENDAGE ABSENT / Unknown 06/14/2024 10:54 AM EST 06/14/2024 2:13 PM EST Comment:MARIALUISA Wendi Loja MD PATHOLOGY/CYTOLOGY O RDERABLES [facility] [place] [address] * Transesophageal Echo/OR (06/14/2024 7:20 AM EST) Anatomical Region Laterality Modality Cardiac Other 06/14/2024 7:20 AM EST Narrative 06/14/2024 4:36 PM EST Version: 2 Study ID: [id number] [address] [place] [id number] ?OR Transesophageal Echo Report Name: GEORGE MEHTA [...] of this mass after consultation with other practice coordinator experts and the decision was made by [...] MD - 06/14/2024 Version: 2 Study ID: [id number] [address] [place] [id number] ORTransesophageal Echo Report Name: GEORGE MEHTA Study [...] of this mass after consultation with other practice coordinator experts and thedecision was made by surgeon [...] PM Wendi Loja MD ECHO ORDERABLES * Scan Doc: Implantable Devices (06/14/2024 12:00 AM EST) Narrative 06/14/2024 12:00 AM EST Ordered by an unspecified provider. Scanning Provider MEDIA MGR SCAN EXT O RDR/RSLT * ABORH RECHECK (06/13/2024 4:11 PM EST) ABORH Recheck O POSITIVE 06/13/2024 4:50 PM EST [facility] Blood VENOUS BLOOD SPECIMEN / Unknown Venipuncture / Unknown 06/13/2024 4:11 PM EST 06/13/2024 4:19 PM EST Haja Byrnes MD BLOOD BANK LAB ORDER EUSEBIA [facility] [place] [address] * Type and screen ([facility]/CGP/RAFITA) (06/13/2024 11:53 AM EST) [facility] Type O POSITIVE 06/13/2024 1:16 PM EST [facility] PATIENT HISTORY Not Found 06/13/2024 1:16 PM EST [facility] Expires at [id number] on: 06/16/2024 06/13/2024 1:16 PM EST [facility] ANTIBODY SCREEN AUTOMATED Negative 06/13/2024 1:16 PM EST [facility] T&S only valid at [facility] 06/13/2024 1:16 PM EST [facility] Blood VENOUS BLOOD SPECIMEN / Unknown Venipuncture / Unknown 06/13/2024 11:53 AM EST 06/13/2024 11:56 AM EST Narrative [facility] - 06/13/2024 1:16 PM EST This Type and Screen result is only valid at the [facility] Haja Byrnes MD BLOOD BANK LAB ORDER EUSEBIA Performing Organization Address City/Va Hospital/ZIP Co de Phone Number [facility] [place] [address] * CARDIAC CATHETERIZATION (06/13/2024 9:02 AM EST) Only the most recent of2 resultswithin the time period is included. Anatomical Region Laterality Modality Other Narrative 06/15/2024 9:07 AM EST ?[facility] ? Cardiac Catheterization/Intervention Report ? Patient Name: Tyson, George L. ? Procedure Date: 06/13/2024 ? A #: [id number] ? Primary Physician: Nuha Shen I ? Case #: [id number] ? File Name: [id number] ? Catheterization Order Number: [id number] ? [facility] ? Final Report [place], [place] ? Patient Name: ? George L. Tyson ? ID#: ?[id number] ? : ?1955 ? Procedure Date: ? June 13, 2024 ?Case #: ? [id number] ? Room: ? 6 ? Case Physician: [...] procedure was Urgent. The indication for ?the rn labor and delivery visit is ACS greater than 24 hrs [...] angiography, vascular ?ultrasound and IABP insertion in rn labor and delivery. ? Nuha I Hermelinda, M.D. ? Electronically Signed by: Nuha I Hermelinda, M.D. ? Report Finalized: 06/15/2024 ??08:59 ? Procedure Note Nuha Shen MD - 06/15/2024 [facility] Cardiac Catheterization/Intervention Report Patient Name: George Mehta Procedure Date: 06/13/2024 A #: [id number] Primary Physician: Nuha Shen I Case #: [id number] File Name: [id number] Catheterization Order Number: [id number] [facility] FinalReport [place], [place] Patient Name: George Mehta ID#:[id number] :1955 Procedure Date: June 13, 2024 Case [...] diagnostic procedure was Urgent. The indicationfor the rn labor and delivery visit is ACS greater than 24 hrs [...] site angiography,vascular ultrasound and IABP insertion in rn labor and delivery. Nuha Shen M.D. Electronically Signed by: Nuha Shen M.D. Report Finalized: 06/15/2024 08:59 Nuha Rojo MD CARDIAC CATH ORDERA BLES * (ABNORMAL) Blood Gas, Venous (06/10/2024 5:42 PM EST) pH, Venous 7.34 7.32 - 7.42 06/10/2024 5:[address] [facility] PCO2, Venous 52 38 - 58 mmHg 06/10/2024 5:[address] [facility] PO2, Venous 24 16 - 65 mmHg 06/10/2024 5:[address] [facility] Bicarbonate, Venous 27.4 22 - 31 mmol/L 06/10/2024 5:[address] [facility] Base Excess, Venous 1.7(L) 1.9 - 4.5 mmol/L 06/10/2024 5:[address] [facility] Hemoglobin, Venous 16.8(H) 13.7 - 16.5 g/dL 06/10/2024 5:[address] [facility] Oxyhemoglobin, Venous 39.0 % 06/10/2024 5:[address] [facility] Carboxyhemoglobin , Venous 0.3 % 06/10/2024 5:[address] [facility] Comment: Nonsmokers: 0.5-1.5% COHB ?? Smokers: Variable ??but usually less than 10% ?? Toxic: 20-30% COHB ?? Lethal: Greater than 60% COHB Methemoglobin, Venous 0.5 <=1.5 % 06/10/2024 5:50 PM EST [facility] Sodium, Venous 137 135 - 145 mmol/L 06/10/2024 5:50 PM EST [facility] Chloride, Venous 96(L) 98 - 107 mmol/L 06/10/2024 5:50 PM EST [facility] Potassium, Venous 4.6 3.5 - 5.0 mmol/L 06/10/2024 5:50 PM EST [facility] Ionized Calcium, Venous 1.23 1.15 - 1.33 mmol/L 06/10/2024 5:[address] [facility] Glucose, Venous 114 65 - 199 mg/dL 06/10/2024 5:50 PM EST [facility] Comment:Glucose Concentratio n >=200 mg/dL plus symptoms is consistent with Diabetes Mellitus. Lactate, Venous 1.1 0.5 - 2.2 mmol/L 06/10/2024 5:[address] [facility] Blood Gas Source Venous 06/10/20 5:[address] [facility] Blood VENOUS BLOOD SPECIMEN / Unknown Blood Gas Venous / Unknown 06/10/2024 5:42 PM EST 06/10/2024 5:47 PM EST Melida Valdes MD CHEMISTRY ORDERABLES [facility] [place] [address] * MRI Cardiac Morphology Function wwo Contrast (06/07/2024 1:10 PM EST) WORKSTATION ID [id number] RAD Anatomical Region Laterality Modality Magnetic Resonan [...] - Mildly dilated left ventricle size with udvginkg-ur-kucqntsf decreased LV systolic function. ??LV ejection fraction [...] who have questions please contact the health medical care administrator that requested your imaging first. ? Narrative [...] VENTRICLE: Mildly dilated left ventricle size with nmbsdfbo-cm-btyyunax decreased LV systolic function. ??LV ejection fraction [...] VENTRICLE: Mildly dilated left ventricle size with wmhglshz-ys-pojtuboq decreasedLV systolic function. LV ejection fraction is [...] - Mildly dilated left ventricle size with lfhmxuhw-sj-llbagifi decreasedLV systolic function. LV ejection fraction is [...] patients who have questions please contactthe health medical care administrator that requested your imaging first. Delroy Fofana MD IMG MRI ORDERABLES * Scan Doc: Implantable Devices (06/04/2024 12:00 AM EDT) Narrative 06/04/2024 12:00 AM EDT Ordered by an unspecified provider. Scanning Provider MEDIA MGR SCAN EXT O RDR/RSLT * CT Chest wo Contrast (Generic) (06/03/2024 4:33 PM EDT) [employer] Signature WORKSTATION ID [id number] RAD Anatomical Region Laterality Modality Chest Computed Tomogra phy Impressions 06/03/2024 4:47 PM EDT Cardiomegaly. Biventricular ICD leads in place. Thank you for letting us participate in the care of this patient. ??If you are a health care provider and have any questions regarding this report, please contact the number below. ??For patients who have questions please contact the health medical care administrator that requested your imaging first. ? Narrative [...] patients who have questions please contactthe health medical care administrator that requested your imaging first. Wendi Loja MD IMG CT ORDERABLES * Carotid Duplex, Bilateral (06/03/2024 2:19 PM EDT) VB Text Report Department: Vascular Surgery Lab Patient: [id number] (GEORGE MEHTA) CPT: 12568 Referring Physician: WENDI LOJA ?? Phone: Indications: [...] 266(H) <=22 ng/L 06/03/2024 10:50 AM EDT [facility] Comment: This patient's [...] can be found in the [facility] Test Catalog Troponin - [email or web address]/catalogs/565/files/28874 Reference: Fourth [place] Definition of Myocardial Infarction. Journal of the [place] College [employer] 2018;72:3827-5351 Troponin-T, HS 3 hr delta 06/03/2024 10:50 AM EDT [facility] Comment:Delta troponin value not calculated, sample collected outside of delta calculation time limit. Blood VENOUS BLOOD SPECIMEN / Unknown IP Care Team Draw / Unknown 06/03/2024 10:06 AM EDT 06/03/2024 10:15 AM EDT Delroy Fofana MD CHEMISTRY ORDERABLE S [facility] [place] [address] * ECHO COMPLETE W CONTRAST (06/03/2024 8:46 AM EDT) Anatomical Region Laterality Modality Cardiac Other 06/03/2024 6:52 AM EDT Narrative 06/03/2024 10:32 AM EDT [address] [place] [address] ? Echocardiogram Report Name: GEORGE MEHTA ?Study Date: 06/03/2024 06:52 AM : 1955 ? Height: 168 cm ? Account: [id number] Age: 69 yrs ? Weight: 102 kg Gender: Male ?BSA: 2.1 m2 Ordering Physician: ISAAC MARES Referring Physician: NEHAL QUINTERO Performed By: Sara Kebede RDCS Reason For Study: STEMI Exam Location: [facility]. Interpretation Summary -Left ventricular systolic [...] fellow performed study of today's date). Procedure Complete-55946. Image enhancement Optison was used for left [...] Note Jonnie Jordan MD - 06/03/2024 [address] [place] [address] Echocardiogram Report Name: GEORGE MEHTA Study Date: 406:52 AM : 1955 Height: 168 cm Account: [id number] Age: 69 yrs Weight: 102 kg Gender: Male BSA: 2.1 m2 Ordering Physician: ISAAC MARES Referring Physician: NEHAL QUINTERO Performed By: Sara Kebede RDCS Reason For Study: STEMI Exam Location: [facility]. Interpretation Summary -Left ventricular systolic [...] a fellow performed study of's date). Procedure Complete-34546. Image enhancement Optison was used for left [...] 289(H) <=22 ng/L 06/03/2024 9:26 AM EDT [facility] Comment: This patient's [...] can be found in the [facility] Test Catalog Troponin - [email or web address]/catalogs/565/files/88632 Reference: Fourth [place] Definition of Myocardial Infarction. Journal of the [place] College [employer]iology 2018;72:7995-0755 Troponin-T, HS 1 hr delta 5 ng/L 06/03/2024 9:26 AM EDT [facility] Comment:The 1 hour Troponin T delta value is the absolute difference between the Troponin T concentrations of the initial and subsequent sample collected between 45 - 120 minutes following the initial collection. Blood VENOUS BLOOD SPECIMEN / Unknown IP Care Team Draw / Unknown 06/03/2024 8:27 AM EDT 06/03/2024 8:37 AM EDT Delroy Fofana MD CHEMISTRY ORDERABLE S [facility] [place] [address] * (ABNORMAL) Troponin-T, High Sensitivity (06/03/2024 7:39 AM EDT) Only the most recent of2 resultswithin the time period is included. Troponin-T, High Sensitivity Initial 284(H) <=22 ng/L 06/03/2024 8:29 AM EDT [facility] Comment: This patient's [...] can be found in the [facility] Test Catalog Troponin - https://[email or web address].org/catalogs/565/files/74502 Reference: Fourth [place] Definition of Myocardial Infarction. Journal of the [place] College [employer]iology 2018;72:3018-3863 Blood VENOUS BLOOD SPECIMEN / Unknown IP Care Team Draw / Unknown 06/03/2024 7:39 AM EDT 06/03/2024 7:48 AM EDT Delroy Fofana MD CHEMISTRY ORDERABLE S [facility] [place] [address] * Echocardiogram Transthoracic (06/03/2024 2:23 AM EDT) Anatomical Region Laterality Modality Cardiac Other 06/03/2024 2:23 AM EDT Narrative 06/03/2024 10:32 AM EDT [address] [place] [address] ? Echocardiogram Report Name: GEORGE MEHTA ?Study Date: 06/03/2024 02:23 AM : 1955 Age: 69 yrs Gender: Male Performed By: Sascha Silva MD Reason For Study: STEMI Interpreting Fellow: Sascha Silva. Interpretation Summary Limited echo performed by fellow communications professor to assess LV function. Left ventricle is mild to moderately dilated. Left ventricular ejection fraction is estimated visually at 25%. There is global dyskinesia with mid-basilar posterior-posterolateral akinesis. Right ventricle is not well seen. RV systolic function is probably normal. There is no prior echo for comparison. Procedure Limited - [id number]. Suboptimal quality. Ventricular paced. Left Ventricle Left [...] Note Jonnie Jordan MD - 06/03/2024 [address] [place] [address] Echocardiogram Report Name: GEORGE MEHTA Study Date: 06/03/2024 02:23AM : 1955 Age: 69 yrs Gender: Male Performed By: Sascha Silva MD Reason For Study: STEMI Interpreting Fellow: Sascha Silva. Interpretation Summary Limited echo performed by fellow communications professor to assess LV function. Left ventricle is mild to moderately dilated. Left ventricular ejectionfraction is estimated visually at 25%. There is global dyskinesia withmid-basilar posterior-posterolateral akinesis. Right ventricle is not well seen. RV systolic function is probablynormal. There is no prior echo for comparison. Procedure Limited - 77[address]. Suboptimal quality. Ventricular paced. Left Ventricle Left [...] - 4.5 mg/dL 06/03/2024 3:02 AM EDT [facility] Blood VENOUS BLOOD SPECIMEN / Unknown IP Care Team Draw / Unknown 06/03/2024 2:13 AM EDT 06/03/2024 2:32 AM EDT Isaac Mares MD CHEMISTRY ORDERABLES Performing Organization Address City/[facility] Hospital/ZIP Co de Phone Number [facility] [place] [address] * (ABNORMAL) pro-Brain Natriuretic Peptide (06/03/2024 2:13 AM EDT) NT-proBNP 1,628(H) <=124 pg/mL 06/03/2024 4:15 AM EDT [facility] Blood VENOUS BLOOD SPECIMEN / Unknown IP Care Team Draw / Unknown 06/03/2024 2:13 AM EDT 06/03/2024 2:32 AM EDT Isaac Mares MD CHEMISTRY ORDERABLES [facility] [place] [address] * Hepatic Function Panel (06/03/2024 2:13 AM EDT) Albumin 3.8 3.2 - 5.2 g/dL 06/03/2024 3:02 AM EDT [facility] Aspartate Aminotransferase 20 <=39 unit/L 06/03/2024 3:02 AM EDT [facility] Alanine Aminotransferase 12 0 - 55 unit/L 06/03/2024 3:02 AM EDT [facility] Alkaline Phosphatase 76 40 - 130 unit/L 06/03/2024 3:02 AM EDT [facility] Bilirubin, Total 0.4 <=1.3 mg/dL 06/03/2024 3:02 AM EDT [facility] Bilirubin, Direct <0.2 0.0 - 0.3 mg/dL 06/03/2024 3:02 AM EDT [facility] Protein, Total 7.0 6.1 - 8.0 g/dL 06/03/2024 3:02 AM [facility] Blood VENOUS BLOOD SPECIMEN / Unknown IP Care Team Draw / Unknown 06/03/2024 2:13 AM EDT 06/03/2024 2:32 AM EDT Isaac Mares MD CHEMISTRY ORDERABLES [facility] [place] [id number] * Lipid Panel (Reflex Direct LDL) (06/03/2024 2:13 AM EDT) Cholesterol, Total 76 mg/dL 06/03/2024 3:02 AM [facility] Comment: Desirable: < 200 mg/dL Borderline High: 200 - 239 mg/dL High: > or = 240 mg/dL Triglyceride 75 mg/dL 06/03/2024 3:02 AM [facility] Comment: Normal: <150 mg/dL Borderline High: 150-199 mg/dL High: 200-499 mg/dL Very High: > or =500 mg/dL HDL Cholesterol 39 mg/dL 3:02 AM [facility] Comment:Males: High Risk: <4 0 mg/dL LDL Cholesterol 21 mg/dL 4 3:02 AM [facility] Comment: Desirable: <100 mg/dL Above Desirable: 100-129 mg/dL Borderline High: 130-159 mg/dL High: 160-189 mg/dL Very High: > or =190 mg/dL Note: LDL calculation updated to the NIH LDL formula as of 03/07/2024 Non-HDL Cholesterol 37 mg/dL 06/03/2024 3:02 AM EDT [facility] Comment: Desirable: <130 mg/dL Above Desirable: 130-159 mg/dL Borderline High: 160-189 mg/dL High: 190-219 mg/dL Very High: > or = 220 mg/dL Blood VENOUS BLOOD SPECIMEN / Unknown IP Care Team Draw / Unknown 06/03/2024 2:13 AM EDT 06/03/2024 2:32 AM EDT [facility] - 06/03/2024 3:02 AM EDT It [...] ACC/AHA Guidelines (most recently Bruce et al. JACC 05/07/22): * For individuals with [...] artery disease) Isaac Mares MD [place] [address] * External Cardiology Result (06/02/2024 9:54 PM EDT) Anatomical Region Laterality Modality Other Historical Provider EXTERNAL CARDIOLO GY RESULT from Last 3 Months Advance Directives * Attempt Cardiopulmonary Resuscitation - Inpatient (Latest Code Status on File) Date Activated Date Inactivated Comments 08/14/2024 9:14 PM 08/16/2024 4:53 PM Question Answer Comments Code Status decision made by: Patient Content of discussion: FULL CODE; ACLS as requir ed * Attempt Cardiopulmonary Resuscitation - Inpatient Date Activated Date Inactivated Comments 06/03/2024 1:04 AM 06/21/2024 3:34 PM Question Answer Comments Code Status decision made by: Patient Content of discussion: patient wishes to be Full Code Care Teams Seat Cover Maker Relationship Specialty Start Date End Date Mauro Berumen MD [address] [place] [address] PCP - General Family Medicine 06/02/24
--- OUTSIDE RECORDS SUMMARY | 2024-08-18 10:20 | XMS_ITS | Encounter Summary ---
Author Organization [facility] Address [facility] [place] [address] Care Team Providers Care Rod Tape Operator Name Role Phone Mauro Berumen MD Primary Care Provider [phone] Encounter Details Date Type Department Care Team (Late st Contact Info) Description 07/20/2024 3:20 PM EST Office Visit Cardiac Surgery at [facility] [place] [address] Bobby Loja MD [facility] [place] [address] Post-operative state Social History Tobacco Use Types Packs/Day Years Used Date Smoking Tobacco: Every Day Cigarettes Smokeless Tobacco: Never [facility] Utilities Answer Date Recorded In the [...] in the past 12 m [facility], were you homeless or living in [...] has not yet seen his PCP or staging technician since surgery. His appetite has been normal [...] cardiac surgery perspective - Follow up with Lead Web Application Developer (Kristen Cardenas) and PCP (Mauro Berumen) as [...] 2:00 PM EST Office Visit Cardiology at [address] [phone] Moi Falcon MD [facility] [place] [address] documented as of this encounter Procedures Procedure Name Priority Date/Time Associated Diagnosis Comments POC, GLUCOSE Routine 07/20/2024 4:31 PM EST documented in this encounter Results * POC, GLUCOSE (07/20/2024 4:31 PM EST) [facility] Signature Glucometer, POC 125 65 - 199 mg/dL 07/20/2024 4:31 PM EST [facility] Comment:Supplemental ranges: <140 mg/dL before meals <180 mg/dL all other times of the day. Blood CAPILLARY BLOOD / Unknown 07/20/2024 4:31 PM EST 07/20/2024 4:31 PM EST Bobby Loja MD POINT OF CARE TEST O RDERAPIETER Performing Organization Address City/State/[facility] Co de Phone Number [facility] [place] [address] documented in this encounter Visit Diagnoses Diagnosis Post-operative state Other postprocedural status documented in this encounter Care Teams Rod Tape Operator Relationship Specialty Start Date End Date Mauro Berumen MD [address] [place] [address] PCP - General Family Medicine 06/02/24 documented as of this encounter
--- OUTSIDE RECORDS SUMMARY | 2024-08-18 10:20 | XMS_ITS | Encounter Summary ---
Author Organization [facility] Address [facility] [place] [address] Care Team Providers Care Intern Product Marketing Manager Name Role Phone Mauro Berumen MD Primary Care Provider [phone] Encounter Details Date Type Department Care Team (Late st Contact Info) Description 08/13/2024 External Results Transfer Center [facility] [phone] Social History Tobacco Use Types Packs/Day Years Used Date Smoking Tobacco: Every Day Cigarettes Smokeless Tobacco: Never [facility] Utilities Answer Date Recorded In the past 12 months has th e electric, gas, oil, or water [employer] threatened to shut off services in your [...] any time in the past 12 m [facility], were you homeless or living in a [place] health [place] facility (including now)? No 08/16/2024 IPV Inpatient Questions [...] 2:00 PM EST Office Visit Cardiology at [address] [phone] Moi Falcon MD [facility] [place] [address] documented as of this encounter Procedures Procedure Name Priority Date/Time Associated Diagnosis Comments MISC EXTERNAL CARDIOLOGY RESULT Routine 08/13/2024 1:38 PM EST documented in this encounter Results * External Cardiology Result (08/13/2024 1:38 PM EST) Anatomical Region Laterality Modality Other Historical Provider EXTERNAL CARDIOLO GY RESULT documented in this encounter Visit Diagnoses Not on filedocumented in this encounter Care Teams Intern Product Marketing Manager Relationship Specialty Start Date End Date Mauro Berumen MD [address] [place] [address] PCP - General Family Medicine 06/02/24 documented as of this encounter
--- OUTSIDE RECORDS SUMMARY | 2024-08-18 10:20 | XMS_ITS | Encounter Summary ---
Author Organization [facility] Address [facility] [place] [address] Care Team Providers Care Padded Products Finisher Name Role Phone Mauro Berumen MD Primary Care Provider [phone] Encounter Details Date Type Department Care Team (Late st Contact Info) Description 07/20/2024 Notes Only Cardiology at [address] [place] [address] Esha Jones RN Social History Tobacco Use Types Packs/Day Years Used Date Smoking Tobacco: Every Day Cigarettes Smokeless Tobacco: Never [facility] Utilities Answer Date Recorded In the past [...] time in the past 12 m [facility], were you homeless or living in [...] BGL was measured to be 40. Nurse Personal Injury Law Specialist Chelsi administered chewable glucose tablets while this [...] 2:00 PM EST Office Visit Cardiology at [address] [phone] Moi Falcon MD [facility] [place] [address] documented as of this encounter Visit Diagnoses Not on filedocumented in this encounter Care Teams Padded Products Finisher Relationship Specialty Start Date End Date Mauro Berumen MD [address] [place] [address] PCP - General Family Medicine 06/02/24 documented as of this encounter
--- OUTSIDE RECORDS SUMMARY | 2024-08-18 10:20 | XMS_ITS | Encounter Summary ---
Author Organization [facility] Address [facility] [place] [address] Care Team Providers Care Label Tacker Name Role Phone Mauro Berumen MD Primary Care Provider [phone] Reason for Visit * Auth/Cert (Routine) Specialty Diagnoses / Procedures Referred By Controdolfo t Referred To Contact Diagnoses Elevated troponin NSTEMI (non-ST elevated myocardial infarction) Pre-syncope s/p CABG Procedures EMERGENCY IPI Evelyn Mckinnon MD [facility] [place] [address] [facility] Referral ID Status Reason Start Date Expiration Date Visits Re quested Visits Authorized [id number] 1 1 Encounter Details Date Type Department Care Team (Latest Contact Info) Description 08/14/2024 7:42 PM EST - 08/16/2024 2:48 PM EST Hospital Encounter Heart and Vascular Unit Level 3 [place] [address] Jim Benites MD [facility] [place] [address] Evelyn Mckinnon MD [facility] [place] [address] Elevated troponin; Chest pain, unspecified type Discharge Disposition: Home Social History Tobacco Use Types Packs/Day Years Used Date Smoking Tobacco: Former Cigarettes Smokeless Tobacco: Never Tobacco Cessation:Counseling Given: Not Answered [facility] Utilities Answer Date Recorded In the past 12 months has [facility] [employer], oil, or water [employer] threatened to shut off services in your [...] in the past 12 m [facility], were you homeless or living in a correction (including now)? No 08/16/2024 IPV Inpatient Questions [...] Mass Index 33.23 08/14/2024 8:00 PM EST documented in this encounter Discharge Summaries * Evelyn Mckinnon MD - 08/16/2024 1:18 PM EST Discharge Summary Patient Name: George Mehta Patient Age: 69 y.o. Language: [place] Admit date: 08/14/2024 Discharge date and time: 08/16/2024 1:18 PM Attending Physician: Evelyn Mckinnon MD Discharge Physician: Evelyn Mckinnon MD Follow-up Recommendations for Providers: Patient presented with symptomatic hypotension secondary to medications, discontinued Coreg, switchto metoprolol succinate 50 mg daily and discontinued scheduled Lasix and changed to as needed Lasix. Did have positive orthostatic vital signs on presentation, negative on the day of discharge. Will need closer monitoring outpatient for optimization of GDMT outpatient. Also had troponin elevation which is likely secondary to demand ischemia/NSTEMI type II, 2D echocardiogram was obtained, which showed LVEF of 31%, no significant change in regional wall motion abnormalities compared to the echo from 06/2024, no ischemic evaluation was indicated. Also patient admitted to hypoglycemic episodes at home, modified home insulin regimen, changed to 15 units of insulin glargine daily, discontinued scheduled mealtime NovoLog, will continue with Jardiance 25 mg daily and metformin 1000 mg twice daily. Will need closer monitoring of blood sugars outpatient and modification in the regimen as needed. A1c noted to be 6.9. Inpatient Provider Contact Information: Evelyn Mckinnon MD Pager #[phone] Discharge Diagnoses (Hospital Problems) and Secondary Diagnoses (Chronic Problems): Active Hospital Problems Diagnosis Elevated troponin NSTEMI (non-ST elevated myocardial infarction) Resolved Hospital Problems No resolved problems to display. 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 male with a PMH of coronary artery disease status post three-vessel CABG, THOMAS to LAD, SVG to PDA and OM 2- 06/14/2024, ischemic cardiomyopathy, EF of 25 to 30%, hyperlipidemia, RAMIRO on CPAP, obesity, insulin- dependent type 2 diabetes mellitus, is a transfer from outsidehospital for dizziness/lightheadedness with exercise. Status post CABG surgery, three-vessel, 06/14/2024, patient has been doing well postsurgery, deniedany exertional chest pain, shortness of breath. However states he was not really very much active postsurgery as he was awaiting to start with cardiac rehab. At the cardiac rehab on 08/13/2024-noted li ghtheadedness dizziness and blurry vision with starting to exercise and his blood pressures were low. States he does not check blood pressures at home. But denied any chest pain or shortness of breath during the event. Hospital Course: # Troponin elevation, NSTEMI type II # Hypotension-likely secondary to medications #Coronary artery disease status post three-vessel CABG, 06/2024 # Status post MARIALUISA ligation, 06/2024 Prior to presentation, patient denied any exertional chest pain, shortness of breath. He was at thecardiac rehab and noted symptomatic hypotension with blood pressures in 80s systolic, needing gentle hydration. Blood pressures now ranging between 90s to 110 systolic. Initial orthostatic vital signs on admission were positive, repeat vital signs prior to discharge-negative. EKG-showed atrial ventricular paced rhythm, also noted T wave inversions in inferior leads, 2 3 aVFand V5 V6 which are new compared to EKG from 06/2024, noted slight ST elevations in V2 V3 and V4 that does not meet STEMI criteria. Troponin at the outside hospital 309, 305, troponins here 28 and 27. His troponin 06/2024 was around 600s. Discontinued heparin drip. Based on clinical presentation, less suspicious for ACS. 2D echocardiogram , 08/15/2024-shows LVEF of 31%, positive for regional wall motion abnormalities however no significant change compared to theechocardiogram from 06/2024. Continue with home medications, aspirin 81 mg daily, Plavix 75 mg daily, atorvastatin 80 mg daily. -Changed Coreg to metoprolol succinate 50 mg daily, 08/16/2024 to help with hypotension. -Will need close outpatient monitoring. -Scheduled Lasix dose switch to as needed Lasix upon discharge. 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 Resumed home Jardiance. -Uptitration of GDMT as tolerated outpatient, outpatient follow-up with cardiology Creatinine noted to be 1.07 with EGFR of 76. Electrolytes within normal limits. # Insulin-dependent type 2 diabetes mellitus Noted at home patient on NovoLog 20 units 3 times daily with meals, Jardiance 10 mg daily and metformin 1000 mg twice daily and insulin glargine 50 units daily. -Patient admits to hypoglycemic episodes at home, over the last week has not been taking any long-acting insulin and also mealtime insulin. -Changed home regimen to insulin glargine 15 units daily, discontinued mealtime insulin, to continue with metformin and Jardiance upon discharge. Will need outpatient follow-up with PCP for further modifications in the insulin regimen. A1c of 6.9. Patient seen and evaluated at bedside. Has been ambulating well without any chest pain, shortness of breath. No acute events overnight. Orthostatic signs today negative. Plan of care discussed with the patient, answered all questions and concerns were addressed. Patient is hemodynamically stable for discharge. Physical Exam General-alert and oriented x 3, not in acute respiratory distress HEENT-atraumatic normocephalic, pupils bilaterally equal and reactive, no jugular venous distention + Midline chest scar Heart-S1-S2 present, regular in rate and rhythm, no murmurs gallops or rubs Respiratory-bilateral breath sounds normal, no rhonchi or wheeze Abdomen- soft, non tender, + BS Neuro- No focal neurological deficits Extremities- B/L Pulses 2+, no edema Skin- normal Functional and Cognitive Status: good Important Studies and Lab Data: Labs: Lab Results Component Value Date WBC 8.55 08/16/2024 HGB 12.3 (L) 08/16/2024 HCT 37.9 (L) 08/16/2024 PLATELET 192 08/16/2024 No results for input(s): INR in the last 168 hours. Lab Results Component Value Date NA 136 08/16/2024 K 4.3 08/16/2024 CL 101 08/16/2024 CO2 25 08/16/2024 BUN 23 (H) 08/16/2024 CREATININE 1.02 08/16/2024 No results for input(s): TSH in the last 7068 hours. Recent Labs 08/14/24 2140 HA1C 6.9* Recent Labs 08/15/24 0500 08/14/24 2140 TROPONINTHS 27* 28* Lab Results Component Value Date CHLPL 76 06/03/2024 HDL 39 06/03/2024 TRIG 75 06/03/2024 LDLCHOL 21 06/03/2024 Studies: 2D echocardiogram, 08/15/2024 Interpretation Summary 1. Left ventricular systolic function [...] by side images at end of report). Intraoperative KAREN, 06/13/2024 This KAREN is done at the request [...] of this mass after consultation with other car repairer apprentice experts and the decision was made by surgeon to explore the mass. There is no significant valvular disease. 2D echocardiogram, 06/03/2024 Interpretation Summary -Left ventricular systolic function is [...] a fellow performed study of today's date). Operative note 06/14/2024 Postoperative diagnosis: Same, Mediastinal mass overlying the Ascending aorta. Procedure(s) (LRB): @CABG, USING ARTERIAL GRAFT;SINGLE ARTERIAL GRAFT (WRVU 33.75) (N/A) @CABG, TWO VENOUS GRAFTS & ARTERIAL GRAFT (WRVU 7.93) (N/A) ENDOSCOPIC HARVEST VEIN(S) FOR CABG (WRVU 0.31) (N/A) @EXCISION OF MEDIASTINAL TUMOR (WRVU 19.55) (N/A) EXPLORATION AND OVERSEW ATRIAL APPENDAGE (WRVU 5.94) (N/A) The bypasses : The PDA target was [...] area. The patient was transported to the [facility] in a critical but stable condition Pending Studies and Lab Data: none Discharge Conditions/Prognosis: good Discharge to: home Updated Allergies/ADRs: No Known Allergies Immunizations Given this Hospitalization: There is no immunization history on file for this patient. Discharge Medications: Your Medications New Medications Dose Details metoprolol succinate XL 50 mg ER 24 hr tablet Commonly known as: Toprol-XL Take 1 tablet by mouth daily. Start taking on: August 17, 2024 50 mg Quantity: 90 tablet Refills: 3 nitroGLYcerin 0.4 mg sublingual tablet Commonly known as: Nitrostat Place 1 tablet under the tongue every 5 minutes as needed for Chest pain. 0.4 mg Quantity: 90 tablet Refills: 12 Continued medications with new dosing Dose Details furosemide 20 mg tablet Commonly known as: Lasix Take 20 mg, one time for weight gain of 2 pounds overnight or 5 pounds in 5 days. What changed: how much to take how to take this when to take this additional instructions Quantity: 30 tablet Refills: 3 Insulin Tresiba FlexTouch U-100 100 unit/mL (3 mL) Insulin Pen Inject 15 Units subcutaneously daily. Indications: type 2 diabetes mellitus Generic drug: insulin degludec What changed: how much to take 15 Units Refills: 0 Continued medications, unchanged Dose Details acetaminophen 325 mg tablet Commonly known as: Tylenol Take 3 tablets by mouth every 6 hours as needed for Pain. 975 mg Refills: 0 aspirin 81 mg chewable tablet Take 81 mg by mouth daily. 81 mg Refills: 0 atorvastatin 80 mg tablet Commonly known as: Lipitor Take 80 mg by mouth daily. 80 mg Refills: 0 cholecalciferol (Vitamin D3) 50 [...] by mouth daily. 20 mg Refills: 0 guaiFENesin ER 600 mg ER 12 hr tablet Commonly known as: Mucinex Take 1 tablet by mouth every 12 hours. 600 mg Quantity: 10 tablet Refills: 0 Jardiance 25 mg tablet Take 25 mg by mouth daily. Generic drug: empagliflozin 25 mg Refills: 0 metFORMIN 1,000 mg ER 24 hr tablet Commonly known as: Fortamet Take 1,000 mg by mouth 2 times daily. 1,000 mg Refills: 0 STOPPED Medications carvediloL 12.5 mg tablet Commonly known as: Coreg NovoLOG Flexpen U-100 Insulin 100 unit/mL (3 mL) Insulin Pen Generic drug: insulin aspart U-100 Smoking Status at Discharge: Social History Tobacco Use Smoking Status Former Current packs/day: 0.25 Types: Cigarettes Smokeless Tobacco Never Instructions Given to Patient at Discharge: Patient Instructions Hospital course: You were admitted to the hospital from cardiac rehab for low blood pressure, lightheadedness and dizziness. Your blood pressure was low in 80s systolic. He received some IV fluids and helped blood pressure improved. We think this is likely related to some of your medications. Discontinued Coreg andswitch to metoprolol and also recommend that you take Lasix/diuretic only as needed for weight gainof 2 pounds overnight or 5 pounds in 5 days. We also noticed that your heart enzymes/troponins wereslightly elevated and initially there was concern for heart attack, we did get an ultrasound of your heart/echocardiogram which showed no significant worsening of your heart function, after discussing with the cardiology team we think y that your symptoms are not related to heart attack and are secondary to hypotension. We also recommend you wearing compression stockings preferably when you are standing for long time or ambulating can remove at bedtime. Recommend 2 g salt and 2 L fluid restriction per day. Your insulin regimen has been modified, recommend that you take 15 units of long-acting insulin daily, metformin and Jardiance, hold off on the mealtime insulin for now until you are seen by PCP. Please maintain a blood sugar log to take it your PCP for further recommendations on modifications of the insulin regimen. You will need to follow-up with PCP and cardiology outpatient. Call your doctor if: Chest pain, dyspnea, pain or swelling in legs occurs, or for weight gain of 2 pounds overnight or 5pounds in 5 days. If you have non-emergent questions, prior to your follow-up visit call: Friday-Friday between the hours of 8AM-5PM please call the Cardiology Clinic [phone] to speak with a nurse. All other hours please call the Hospital [employer] [phone] and ask to speak to the cardiovascular hospitalist on-call. For any emergent questions, please call 911 or visit your nearest emergency department/urgent care center Diet-diabetic, cardiac diet, 2 g salt and 2 L fluid restriction per day Activity-as tolerated Follow up Appointments: Doctor Where Phone # Date Time PCP Mauro Berumen MD [address] [place] [id number] Aug 23Friday 11.20 AM Header Setup Operator [facility] [place] [facility] [phone] Sep 29, Friday 2 PM (arrive at 1.40 PM) Home oxygen therapy: N/A Arrangements for VNA/home care: N/A General Instructions None Future Appointments and Orders Future Appointments and Orders Future Appointments Provider Department Dept Phone 09/29/2024 2:00 PM Moi Falcon MD [place] [facility] at: [facility] Area [phone] Discharge References/Attachments Orthostatic Hypotension ([place]) Metoprolol Extended Release Oral Capsule (METOPROLOL SUCCINATE EXTENDED-RELEASE CAPSULE - ORAL) ([place]) Nitroglycerin Sublingual Tablet (NITROGLYCERIN - SUBLINGUAL) ([place]) More than 30 minutes were spent on this discharge including documentation, [id number] time with patient, patient education, order make up clerk, and coordination pharmacy, follow-up and other patient care. Evelyn Mckinnon MD 08/16/2024 1:27 PM documented in this encounter Discharge Instructions * Patient Instructions* Evelyn Mckinnon MD - 08/16/2024 12:17 PM EST Hospital course: You were admitted to the hospital from cardiac rehab for low blood pressure, lightheadedness and dizziness. Your blood pressure was low in 80s systolic. He received some IV fluids and helped blood pressure improved. We think this is likely related to some of your medications. Discontinued Coreg andswitch to metoprolol and also recommend that you take Lasix/diuretic only as needed for weight gainof 2 pounds overnight or 5 pounds in 5 days. We also noticed that your heart enzymes/troponins wereslightly elevated and initially there was concern for heart attack, we did get an ultrasound of your heart/echocardiogram which showed no significant worsening of your heart function, after discussing with the cardiology team we think y that your symptoms are not related to heart attack and are secondary to hypotension. We also recommend you wearing compression stockings preferably when you are standing for long time or ambulating can remove at bedtime. Recommend 2 g salt and 2 L fluid restriction per day. Your insulin regimen has been modified, recommend that you take 15 units of long-acting insulin daily, metformin and Jardiance, hold off on the mealtime insulin for now until you are seen by PCP. Please maintain a blood sugar log to take it your PCP for further recommendations on modifications of the insulin regimen. You will need to follow-up with PCP and cardiology outpatient. Call your doctor if: Chest pain, dyspnea, pain or swelling in legs occurs, or for weight gain of 2 pounds overnight or 5pounds in 5 days. If you have non-emergent questions, prior to your follow-up visit call: Friday-Friday between the hours of 8AM-5PM please call the Cardiology Clinic [phone] to speak with a nurse. All other hours please call the Hospital [employer] [phone] and ask to speak to the cardiovascular hospitalist on-call. For any emergent questions, please call 911 or visit your nearest emergency department/urgent care center Diet-diabetic, cardiac diet, 2 g salt and 2 L fluid restriction per day Activity-as tolerated Follow up Appointments: Doctor Where Phone # Date Time PCP Mauro Berumen MD [address] [place] [address] Aug 23Friday 11.20 AM Header Setup Operator [facility] [place] [facility] [phone] Sep 29Friday 2 PM (arrive at 1.40 PM) Home oxygen therapy: N/A Arrangements for VNA/home care: N/A * Attachments The following attachments cannot be sent through Care Everywhere. * Orthostatic Hypotension ([place]) * Metoprolol Extended Release Oral Capsule (METOPROLOL SUCCINATE EXTENDED- RELEASE CAPSULE - ORAL) ([place]) * Nitroglycerin Sublingual Tablet (NITROGLYCERIN - SUBLINGUAL) ([place]) documented in this encounter Medications at Time of Discharge Medication Sig Dispensed Refills Start Date End Date furosemide (Lasix) 20 mg tablet Take 20 mg, one time for weight gain of 2 pounds overnight or 5 pounds in 5 days. 30 tablet 3 08/16/2024 Insulin Tresiba FlexTouch U-100 100 unit/mL (3 mL) Insulin PenIndications:type 2 diabetes mellitus Inject 15 Units subcutaneously daily. Indications: type 2 diabetes mellitus 08/16/2024 metoprolol succinate XL (Toprol-XL) 50 mg ER 24 hr tablet Take 1 tablet by mouth daily. 90 tablet 3 08/17/2024 nitroGLYcerin (Nitrostat) 0.[address] 1 tablet under the tongue every 5 minutes as needed for Chest pain. 90 tablet 12 08/16/2024 acetaminophen (Tylenol) 325 mg tablet Take 3 tablets by mouth every 6 hours as needed for Pain. 06/21/2024 guaiFENesin ER (Mucinex) 600 mg ER 12 hr tablet Take 1 tablet by mouth every 12 hours. 10 tablet 06/21/2024 metFORMIN (Fortamet) 1,000 mg ER 24 hr tablet Take 1,000 mg by mouth 2 times daily. atorvastatin [...] tablet Take 25 mg by mouth daily. documented as of this encounter Progress Notes * Mary Lou Lane RN - 08/16/2024 8:29 AM ESTSummary: Orthostatics 08/16 08/16/24 0818 08/16/24 0823 08/16/24 0825 Adult Vital Signs Heart Rate 80 82 83 Heart Rate Source Monitor Monitor Monitor BP 116/67 117/88 110/62 MAP (NBP) 80 mmHg 99 mmHg 77 mmHg BP Method Automatic Automatic Automatic BP Location (NBP) Left arm Left arm Left arm Patient Position Lying Sitting Standing Patient Activity Status -- post-activity post-activity Mary Lou PIERRE, RN * Elliott Soto RCP - 08/16/2024 3:42 AM EST Respiratory Therapy NIV Note NIV Settings: NIV Mode: CPAP PEEP/CPAP (cm H2O): 10 cm H20 FiO2 (%): 30 % NIV Measurements: Resp: 18 Mve: 6.6 Leak (L/min): 40 L/min Vte: 348 SpO2: 99 % Assessment: Pt seen for use of NIV at [facility] is semi independent with its use. Pt places on and off as able. Machine and equipment inspected and tight. Plan: Support the pts NIV needs. Elliott Soto RCP * Mary Lou Lane RN - 08/15/2024 12:59 PM ESTSummary: Orthostatic Vital signs 08/15/24 1254 08/15/24 1256 08/15/24 1257 Adult Vital Signs Heart Rate 80 80 80 Heart Rate Source Monitor Monitor Monitor BP 118/80 (!) 114/92 104/48 MAP (NBP) 93 mmHg 100 mmHg 60 mmHg BP Method Automatic Automatic Automatic BP Location (NBP) Right arm Right arm Right arm Patient Position Lying Sitting Standing Mary Lou PIERRE, RN * Evelyn Mckinnon MD - 08/15/2024 10:24 AM EST CV HOSPITALIST 1 - [facility] DAILY PROGRESS NOTE Page [phone] to reach a provider 24/02 Admit Date: 08/14/2024 Encounter Date August 15, 2024 Anticipated Discharge Date: Hospital Day: 1 Active Hospital Problems Diagnosis Elevated troponin Resolved Hospital Problems No resolved problems to display. 24 Hour Events/Subjective: No acute events overnight. Patient denies any chest pain, tightness or heaviness. No shortness of breath, lightheadedness or dizziness at this time. Status post CABG surgery, three-vessel, 06/14/2024, patient has been doing well postsurgery, deniedany exertional chest pain, shortness of breath. However states he was not really very much active postsurgery as he was awaiting to start with cardiac rehab. At the cardiac rehab on 08/13/2024-noted li ghtheadedness dizziness and blurry vision with starting to exercise and his blood pressures were low. States he does not check blood pressures at home. But denied any chest pain or shortness of breath during the event. Plan of care discussed with the patient, answered all questions and concerns were addressed. Medications: Scheduled Meds: sodium chloride 0.9 % (flush) 5 mL Intravenous BID atorvastatin 80 mg Oral QPM clopidogreL 75 mg Oral Daily insulin lispro 1-6 Units Subcutaneous TID AC aspirin 81 mg Oral Daily carvediloL 12.5 mg Oral BID escitalopram 20 mg Oral Daily sacubitriL-valsartan 1 tablet Oral BID Continuous Infusions: heparin (porcine) infusion 1,100 Units/hr (08/15/24 0524) PRN Meds:.sodium chloride 0.9 % (flush), lidocaine, nitroGLYcerin, acetaminophen, heparin (porcine)infusion AND heparin (porcine), glucose 40% oral geL OR dextrose OR glucagon, morphine Objective: Last value Range last 24 hrs Temp: 36.6 ??C (97.9 ??F) Temp: [36.5 ??C (97.7 ??F)-36.6 ??C (97.9 ??F)] Heart Rate: 80 Heart Rate from SpO2: 79 bpm Heart Rate: [80] BP: 116/74 BP: (99-116)/(62-75) Resp: 16 Resp: [14-20] SpO2: 93 % SpO2: [92 %-99 %] Height: 167.6 cm (5' 6) Weight: 93.5 kg (206 lb 2.1 oz) BMI (Calculated): 32.88 BMI Classification: Obese Admit weight: 92.4 kg Patient Vitals for the past 168 hrs: Weight 08/15/24 0340 93.5 kg (206 lb 2.1 oz) 08/14/24 2000 92.4 kg (203 lb 11.3 oz) Intake/Output Summary (Last 24 hours) at 08/15/2024 1024 Last data filed at 08/15/2024 0900 Gross per 24 hour Intake 823.4 ml Output 575 ml Net 248.4 ml Physical Exam: Physical Exam General-alert and oriented x 3, not in acute respiratory distress HEENT-atraumatic normocephalic, pupils bilaterally equal and reactive, no jugular venous distention + Midline chest scar Heart-S1-S2 present, regular in rate and rhythm, no murmurs gallops or rubs Respiratory-bilateral breath sounds normal, no rhonchi or wheeze Abdomen- soft, non tender, + BS Neuro- No focal neurological deficits Extremities- B/L Pulses 2+, no edema Skin- normal Labs: Recent Labs 08/15/24 0459 08/14/24 2140 WBC 7.12 9.52* HGB 12.9* 13.7 HCT 40.2* 44.0 PLATELET 196 235 MCV 92.0 92.8 Recent Labs 08/15/24 0500 NA 139 CL 102 CO2 23 K 4.1 CALCIUM 9.0 BUN 23* CREATININE 1.07 Coags No results for input(s): INR, PT, PTT, DDIMER in the last 168 hours. Cardiac Markers Recent Labs 08/15/24 0500 08/14/24 2140 TROPONINTHS 27* 28* Endocrine Recent Labs 08/14/24 2140 06/06/24 0333 HA1C 6.9* 7.1* No results for input(s): CHLPL, TRIG, HDL, LDLCHOL, CHOLHDL in the last 168 hours. Recent Labs 08/15/24 0801 08/15/24 0500 08/14/24 2356 GLUCOSE -- 184 -- POCGLU 191 -- 229* EKG: AV paced rhythm, also noted T wave inversions in inferior leads, 2 3 aVF and V5 V6, which are new compared to EKG from 06/2024, also noted slight ST elevations in V2-V3 and V4 which are unchanged from prior EKG on 06/2024. Telemetry: I have personally reviewed and interpreted the telemetry from the last 24 hours. Resultsshow AV paced rhythm, no malignant arrhythmias.. Imaging: No results found for this visit on 08/14/24 (from the past 24 hour(s)). Intraoperative KAREN, 06/13/2024 This KAREN is done at the request [...] of this mass after consultation with other car repairer apprentice experts and the decision was made by surgeon to explore the mass. There is no significant valvular disease. 2D echocardiogram, 06/03/2024 Interpretation Summary -Left ventricular systolic function is [...] a fellow performed study of today's date). Operative note 06/14/2024 Postoperative diagnosis: Same, Mediastinal mass overlying the Ascending aorta. Procedure(s) (LRB): @CABG, USING ARTERIAL GRAFT;SINGLE ARTERIAL GRAFT (WRVU 33.75) (N/A) @CABG, TWO VENOUS GRAFTS & ARTERIAL GRAFT (WRVU 7.93) (N/A) ENDOSCOPIC HARVEST VEIN(S) FOR CABG (WRVU 0.31) (N/A) @EXCISION OF MEDIASTINAL TUMOR (WRVU 19.55) (N/A) EXPLORATION AND OVERSEW ATRIAL APPENDAGE (WRVU 5.94) (N/A) The bypasses : The PDA target was [...] area. The patient was transported to the [facility] in a critical but stable condition Assessment: George Mehta is a 69 y.o. male with a PMH of coronary artery disease status post three-vessel CABG, THOMAS to LAD, SVG to PDA and OM 2- 06/14/2024, ischemic cardiomyopathy, EF of 25 to 30%, hyperlipidemia, RAMIRO on CPAP, obesity, insulin- dependent type 2 diabetes mellitus, is a transfer from outsidehospital for dizziness/lightheadedness with exercise. Plan: # Troponin elevation, NSTEMI type I versus type II # Hypotension-likely secondary to medications #Coronary artery disease status post three-vessel CABG, 06/2024 # Status post MARIALUISA ligation, 06/2024 Prior to presentation, patient denied any exertional chest pain, shortness of breath. He was at thecardiac rehab and noted symptomatic hypotension with blood pressures in 80s systolic, needing gentle hydration. Blood pressures now ranging between 90s to 110 systolic. Will check orthostatic vital signs. EKG-showed atrial ventricular paced rhythm, also noted T wave inversions in inferior leads, 2 3 aVFand V5 V6 which are new compared to EKG from 06/2024, noted slight ST elevations in V2 V3 and V4 that does not meet STEMI criteria. Troponin at the outside hospital 309, 305, troponins here 28 and 27. His troponin 06/2024 was around 600s. Currently on heparin drip, will continue. Based on clinical presentation, less suspicious for ACS. 2D echocardiogram is ordered, will look for any new regional wall motion abnormalities. Will discuss with cardiology in a.m. about need for stress test. Continue with home medications, aspirin 81 mg daily, Plavix 75 mg daily, atorvastatin 80 mg daily. -Will change Coreg to metoprolol succinate 50 mg daily, 08/16/2024 to help with hypotension. -Will continue to closely monitor on telemetry -Will continue to hold off on home dose of Lasix, patient appears euvolemic on examination. # Ischemic cardiomyopathy, EF of 25 to 30% -Continue with Entresto 49/51 mg twice daily, change Coreg to metoprolol succinate. Will resume home Jardiance. Creatinine noted to be 1.07 with EGFR of 76. Electrolytes within normal limits. # Insulin-dependent type 2 diabetes mellitus Noted at home patient on NovoLog 20 units 3 times daily with meals, Jardiance 10 mg daily and metformin -Hold metformin, continue with mealtime and sliding scale insulin. A1c of 6.9. Diet: Cardiac diet, n.p.o. after midnight DVT Prophylaxis: Heparin drip Code status: Attempt Cardiopulmonary Resuscitation - Inpatient Disposition-awaiting echocardiogram and further evaluation based on the results. Disposition: Discharge Location: [facility] Basic Mobility Raw Score: 24 PT: OT: PCP Mauro Berumen MD [phone] Evelyn Mckinnon MD 08/15/2024 10:42 AM Addendum Noted positive orthostatics. Held Lasix and discontinued Coreg after the a.m. dose today. Encouraged oral hydration. Ordered bilateral lower extremity stockings. Recheck orthostatic vital signs in AM. Reviewed results of 2D echocardiogram, noted EF of 31%, there are regional variations and grade 2 d iastolic dysfunction, compared to images of 05/2024, systolic function and wall motion abnormalities are similar. Evelyn Mckinnon MD 08/15/2024 5:00 PM documented in this encounter H&P Notes * Octaviano Quiñones MD - 08/14/2024 10:43 PM EST Cardiology Admission H&P Patient Name: George Mehta Date of : 1955 Age: 69 y.o. Hospital Admit Date: 08/14/2024 Inpatient Attending: Evelyn Mckinnon MD PCP: Mauro Berumen MD Presenting Diagnosis/Chief Complaint: I was at Cardiac Rehab for the first time ever, at [facility] ([place], [place]) today, on Friday morning (08/13/2024, 10:00am) andmy blood pressure was low at 82/64 when the nurse took my blood pressure before I went running on the treadmill. So, the nurse took my blood pressure again in a few minutes and it was higher at 96/60, so they let me run on the treadmill. I was running for about 6 minutes, and then I stopped runningbecause I felt a little lightheaded with foggy vision, not blindness. The nurse took my blood pressure again and said that it was low again with the top number around 80, I can't remember the exact blood pressure, but it was low, so they sent me from the Cardiac Rehab Office at [facility] ([place], [place]) to the ER at [facility] ([place], [place]) to get checked out and the ER doctor said that my heart enzyme (e.g., troponin-I) was a little high at 309 ng/L (08/13/2024, 11:27am). I felt fine then; I didn't feel lightheaded or have any foggy vision anymore; that lasted about 45 minutes and then went away on its own and never came back. The ER doc said that I had something called demand ischemia and he said that since I had my triple bypass heart surgery at [facility] on 06/14/2024, 8:48am [place] [facility] [place]. Bobby Loja, I should go to [facility] and see Dr. Loja again. I remember when I was at [facility] back in June last year (2023), and the doctors tried cardiac cath, but they couldn't do it because they said my arteries were too calcified, and that I had to get the triple bypass heart surgery instead. Ifeel fine now. The lightheadedness and foggy vision never came back. Active Problem List: Active Hospital Problems Diagnosis Elevated troponin Resolved Hospital Problems No resolved problems to display. History of Present Illness: HPI: 69 years old male with PMH of FULL CODE @ home, obesity with BMI 32.88 (height 167.6cm; weight 92.4 kg), RAMIRO on nocturnal CPAP, former tobacco abuse with no subsequent diagnosis of COPD, not on home O2 or home steroids, major depression on escitalopram 20mg PO daily, recent development of normocytic, normochromic anemia with baseline Hb range, 9.8 - 13.1 g/dL (06/14/2024 - 06/17/2024), and no screening colonoscopy ever, malignant melanoma of left parietal region, s/p resection (2017, [facility], [place], [place]), insulin-dependent DM2 on aspart insulin 20 units SQ tid before meals, tresiba insulin 30 units SQ daily, metformin 1000mg PO bid, and empagliflozin 25mg PO daily, with HbA1c 7.1% (06/06/2024, 3:33am), CAD s/p acute MA #1 (09/2003, s/p stent x 1, [facility], [place], [place]). acute MA #2 (03/2018, s/p stent x 1, [place], [place] acute MA #3 (01/2019, s/p stent x 1, [place] acute MA #4 (06/03/24,s/p 3vCABG, [facility], [place], [place])(CT Surgeon Dr. Bobby Loja, 06/14/2024, 8:48am). Cf., troponin-T #1 208 ng/L (06/03/2024, 2:13am). Cf., troponin-T #2 218 ng/L (06/03/2024, 3:07am). Cf., troponin-T #3 254 ng/L (06/03/2024, 5:11am). Cf., troponin-T #4 284 ng/L (06/03/2024, 7:39am). Cf., troponin-T #5 289 ng/L (06/03/2024, 8:27am). Cf., EKG (06/03/2024, 1:45am): atrial-sensing, ventricle-pacing @ 63, DC 168, QTC 409 (by my review). Patient subsequently developed chronic systolic CHF with reduced LVEF 30-35% (as noted on 06/14/2024, 7:20am KAREN, [facility] [place]. Hosea Ardon), and chronic diastolic CHF, for which patient underwent AICD (06/2019, [facility], [place], [place]). Patient reports no paroxysmal nocturnal dyspnea, maintains a dry baseline weight of 210 pounds, and sleeps on a regular bed with 1 pillow all the time. Patient subsequently underwent left heart catheterization (06/02/2024, 12:42am, [facility] [place]. Nuha Shen) which revealed: Hemodynamics: Left Heart Pressures Resting: Syst Diast [...] catheter and a 3.5 Fr [place] [place] [place] 20 Mhz using Manual pullback. Imaging was [...] catheter and a 3.5 Fr [place] [place] [place] 20 Mhz using Manual pullback. Imaging was [...] this procedure, it was recommended that the patient be managed with medical therapy. (As per [facility] Interventional CARDS Dr. Nuha Shen). Patient subsequently underwent TTE (06/03/2024, 2:23am, [facility] [place] fellow Dr. Sascha Silva) whichrevealed: Left Ventricle Left ventricle is mild to [...] The mitral valve leaflets are thickened. I WMSI = 2.25 % Normal = 0 Segments Size X - Cannot 2 - 4 - 1-2 small Interpret 1 - Normal Hypokinetic 3 - Akinetic Dyskinetic 3-5 moderate 5 - 6-14 large Aneurysmal 15-16 diffuse (As per [facility] [place] fellow Dr. Sascha Silva). Patient subsequently underwent TTE (06/03/2024, 8:46am, [facility] [place]. Jonnie Jordan) which revealed: Left Ventricle Left ventricle is of normal [...] relaxation with elevated left ventricular filling pressure). (As per [facility] [place]. Jonnie Jordan). Patient subsequently underwent cardiac catheterization (06/13/2024, 9:15am, [facility] [place]ventional CARDS Dr. Nuha Shen), which revealed: Hemodynamics: Left Heart Pressures Resting: Syst Diast [...] situation may require modification of this regimen. (as per [facility] [place]ventional CARDS Dr. Nuha Shen). Patient subsequently underwent KAREN (06/14/2024, 7:20am, [facility] [place]. Hosea Ardon), which revealed: KAREN is done at the request of CT surgery for evaluation and monitoring during inpatient CABG surgery. 2. Moderately dilated left ventricle with LVEF calculated at 25-28%. 3. IABP in good position. 4. After bypass on 3-4 mcg.kg/min dobutamine and IABP support, LVEF improved to 30-35% with improved function of the anterior fofana. 5. RIJ is guided by KAREN. The aortic cannula and cross clamp site are guided by Epi-aortic ultrasound. 6. Unusual fibrinous mass at the oriffice of the left atrial appendage. 7. No MARIALUISA thrombus and good velocity therein. This surgeon was made aware of this mass after consultation with other car repairer apprentice experts and the decision was made by surgeon to explore the mass. 8. No significant valvular disease. Patient subsequently underwent biopsy (06/14/2024, 9:53am) of unusual fibrinous mass at the orifice of the left atrial appendage (as noted on 06/14/2024, 7:20am, [facility] [place] Hosea Ardon): A. Soft Tissue Mass, Mediastinal Mass, Excision: - Atrophic thymic tissue B. Heart, Atrial Appendage, Left, Excision: - Mild myocyte hypertrophy (as per [facility] [place]. Sandra Salas). As noted above, patient underwent 3v CABG, excision of mediastinal tumor, and exploration / oversewof atrial appendage (06/14/2024, 8:48am, [facility] [place] Sur[place] Dr. Bobby Loja). Patient now reports: I was at Cardiac Rehab for the first time ever, at [facility] ([place], [place]) today, on Friday morning (08/14/2024, 10:00am) and my blood pressure was low at 82/64 when the nurse took my blood pressure before I went running on the treadmill. So, the nurse took my blood pressure again in a few minutes and it was higher at 96/60, so they let me run on the treadmill. I was running for about 6 minutes, and then I stopped running because I felt a little lightheadedwith foggy vision, not blindness. The nurse took my blood pressure again and said that it was low again with the top number around 80, I can't remember the exact blood pressure, but it was low, so they sent me from the Cardiac Rehab Office at [facility] ([place], [place]) to the ER at [facility] ([place], [place]) to get checked out and the ER doctor said that my heart enzyme (e.g., troponin-I) was a little high at 309 ng/L (08/13/2024, 11:27am). I felt fine then; I didn't feel lightheaded or have any foggy vision anymore; that lasted about 45 minutes and then went away on its own and never came back. The ER doc said that I had something called demand ischemia and he said that since I had my triple bypass heart surgery at [facility] 06/14/2024, 8:48am with [facility] [place]. Bobby Loja, I should go to [facility] and seeDr. Loja again. I remember when I was at [facility] back in June last year (2023), and the doctors tried cardiac cath, but they couldn't do it because they said my arteries were too calcified, and that I had to get the triple bypass heart surgery instead. I feel fine now. The lightheadedness and foggy vision never came back. Patient denies antecedent/coincident chest pain, chest pressure, chest tightness, chest heaviness, palpitations, pleurisy, fevers, chills, diaphoresis, cough, wheeze, sore throat, hemoptysis, shortness of breath, dyspnea on exertion, weight gain, weight loss, anosmia, ageusia, hypogeusia, otorrhea, rhinorrhea, nausea, vomiting, diarrhea, abdominal pain, pelvic pain, hematemesis, hematochezia, melena, hematuria, dysuria, frequency, urgency, headaches, dizziness, visual changes, hearing changes, weakness, falls, trauma, syncope, travel history, or food/drug ingestions novel/new. All other review of systems is reported as negative by the patient on observation date 08/14/2024. In [facility] ER ([place], [place]), patient was afebrile at 37.0 degrees Celsius, HR 80, RR 20, O2 sat 97% on room air, and BP 117/61 (08/13/2024, 11:13am). Exam was noted for a clear and non-tender chest. Labs in [facility] ER ([place], [place]) included: WBC 9.25, N69 L19 M 8 E3 B1, Hb 13.4, MCV 93.0, MCHC 31.1, platelet 233 (08/13/2024, 11:27am). WBC 8.30, N55 L30 M10 E4 B1, Hb 13.4, MCV 92.0, MCHC 31.5, platelet 204 (08/14/2024, 6:00am). Na 138, K 4.5, BUN 29, creatinine 1.5, GFR 50.71, glucose 186, Ca 9.7, Mg 1.9, AST 14, ALT 10, ALK PHOS 89, TB0.65 (08/13/2024, 11:27am). Troponin-I #1 309 ng/L (08/13/2024, 11:27am). Troponin-I #2 305 ng/L (08/13/2024, 1:05pm). Troponin-I #3 308 ng/L (08/13/2024, 3:03pm). Troponin-I #4 311 ng/L (08/13/2024, 5:23pm). Troponin-I #5 338 ng/L (08/13/2024, 7:05pm). Troponin-I #6 314 ng/L (08/14/2024, 6:00am). Additional testing in [facility] ER ([place], [place]) included: EKG (actual tracing not present in papers/documents transferred from [facility] ER ([place], [place]): Workup in the ED showed an EKG with pacing without T wave or ST segment changes pointing to occlusive cardiac disease; noticeable T wave inversion in multiple leads infero-lateral leads as seen prior. (as per [facility] Viry Adele Temple, [employer]). Patient was subsequently diagnosed with the following conditions @ [facility] ER ([place], [place]) on 08/13/2024: R/O acute NSTEMI. Acute dehydration with admitting BUN:creatinine ratio approximately 20:1 (cf., BUN 29, creatinine 1.5)(08/13/2024, 11:27am). 3. Chronic hyperglycemia with admitting glucose 186 mg/dL (08/13/2024, 11:27am). 4. Chronic normocytic, normochromic anemia with admitting Hb 13.4 g/dL, MCV 93.0, MCHC 31.1 (08/13/2024, 11:27am). To address #1, patient was placed on telemetry and received: A. ASA 81mg PO x 1 dose (08/14/2024, 8:30am). B. Atorvastatin 80mg PO x 1 dose (08/14/2024, 8:30am). C. Carvedilol 12.5mg PO x 2 doses (08/13/2024, 8:00pm, 08/14/2024, 8:43am). D. Plavix 75mg PO x 1 dose (08/14/2024, 8:30am). E. Heparin gtt @ 1000 units/hr (08/13/2024, 3:00pm). F. Sacubitril/Valsartan 49/51 mg PO x 2 doses (08/13/2024, 8:00pm; 08/14/2024, 8:43am). Patient was subsequently transferred from [facility] ([place], [place]) to [facility] [place] [facility] on 08/14/2024 to undergo TTE and formal Cardiac Surgery Service evaluation with Dr. Bobby Loja in the 08/15/2024 am. To address #2, patient received 1 liter of D5 - lactated Ringers @ 50 mL/hr (08/14/2024, 12:00am). To address #3, patient received metformin 1000mg PO x 1 dose (08/14/2024, 8:00am), empagliflozin 25mg PO x 1 dose (08/14/2024, 8:30am). To address #4, patient was observed. Past Medical History: As above in the HPI. Surgical History/Problems: Past Surgical History: Procedure Laterality Date PRO CABG, ARTERIAL, SINGLE N/A 06/14/2024 @CABG, USING ARTERIAL GRAFT;SINGLE ARTERIAL GRAFT (WRVU 33.75) performed by Bobby Loja MD [facility] MAIN OR PRO CABG, ARTERY-VEIN, TWO N/A 06/14/2024 @CABG, TWO VENOUS GRAFTS & ARTERIAL GRAFT (WRVU 7.93) [facility]OSCOPY W/VIDEO-ASST VEIN HARVEST, CABG N/A 06/14/2024 ENDOSCOPIC HARVEST VEIN(S) FOR CABG (WRVU 0.31) performed by Bobby Loja MD at [facility] MAIN OR PRO EXC MEDIASTINAL TUMOR N/A 06/14/2024 @EXCISION OF MEDIASTINAL TUMOR (WRVU 19.55) performed by Bobby Loja MD at [facility] MAIN OR PRO INSERT INTRA-AORTIC BALLOON ASST DEVICE PERCUTANEOUS N/A 06/13/2024 @INSERTION OF IABP,PERCUTANEOUS (WRVU 4.84) performed by Nuha Shen MD at [facility] CATH LABS PRO UNLISTED CARDIAC SURG PROCEDURE N/A 06/14/2024 EXPLORATION AND OVERSEW ATRIAL APPENDAGE (WRVU 5.94) [facility] Family History: Patient's father is at 78 years of age from natural causes with underlying tobacco/ETOH abuse. Patient's mother is at 78yearsa of age from natural causes with underlying ETOH abuse. Social History: Patient reports that he used to smoke 1 pack of cigarettes per day for 50 years, and quit smoking in April 2024. Patient reports that he has never been diagnosed with COPD, and does not utilize home oxygen or home steroids. Patient denies alcohol and illicit drug use. 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 Patient is retired with physical disability after sustaining his third acute MA (01/2019, s/p stent x 1, [place], [place]), and now suffers from chronic systolic CHF with reduced LVEF 30- 35% (as noted on 06/14/2024, 7:20am KAREN, [facility] [place]. Hosea Ardon), and chronic diastolic CHF, for which patient underwent AICD (06/2019, [place], [place]). Patient was to his first for 4 years before divorce; together, they have a 45 years old son, who is alive and well. Patient is to his second for 20 years; together, they have no children living or . Patient lives at home with his second in their own home in [place], [place], and ambulates without assistance from cane, walker, or wheelchair. Patient can drive a car independently. Patient comes [place] [facility] as a direct ambulance transfer from [facility] ([place], [place]) today, 08/14/2024. REVIEW OF SYSTEMS: Review of Systems : As above in the HPI. Medications: Medications Prior to Admission Medication Sig Dispense Refill Last Dose acetaminophen (Tylenol) 325 mg tablet Take 3 [...] 20 Unitssubcutaneously 3 times daily (with meals). Allergies: No Known Allergies PHYSICAL EXAM: Last set of vital signs: BP 116/75 (BP Location (NBP): Right arm, Patient Position: Lying) Pulse 80 Temp 36.5 ??C (97.7 ??F) (Oral) Resp 16 Ht 167.6 cm (5' 6) Wt 92.4 kg (203 lb 11.3 oz) SpO2 99% BMI 32.88 kg/m?? Physical Exam General: Comfortable, cooperative, coherent. Wide awake and alert. Not confused, lethargic, or obtunded. Patient speaks in complete, fluent, and articulate sentences without pause, interruption, cough, or wheeze. HEENT: Normocephalic, atraumatic. PERRL. EOMI. No nystagmus, gaze paresis, anisocoria, miosis, mydriasis, chemosis, hyphema, scleral injection, conjunctivitis, pterygium, or photophobia. No otorrhea.No rhinorrhea. No pharyngeal erythema/discharge. Neck: Supple, no stridor, bruit, goiter, HJR. Jugular venous pressure is estimated to be 8 cm abovethe sternal angle of Yusef, which is typically 5 cm above the level of the right atrium; no jugularvenous distention is noted on observation date 08/14/2024. Chest: Symmetric rise and fall with respirations. Non-tender to palpation. Lungs: Clear to auscultation and percussion. No audible expiratory wheeze, egophony, pectoriloquy, increase in tactile fremitus, or flatness/dullness to percussion at the bases. Heart: RRR, S1 and S2 noted. No S3 or S4 summation gallop noted. No tripartite friction rub. Grade II/ early systolic murmur @ LLSB without radiation to the carotids, axilla, or back, and which remains invariant in regards to the respiratory cycle. Abdomen: Soft, non-tender, non-distended. No rebound, guarding, Loera's sign, or organomegaly. Bowel sounds auscultated in all 4 quadrants. Extremities: No clubbing, cyanosis, or edema. 2+ pedal pulses bilaterally. Neurology: Alert and oriented in regards to person, place, time, and situation. DTR+ and symmetric.5/5 motor strength in all 4 extremities, both proximally and distally. No myoclonus, tremors, or tics. Skin: No decubitus ulcer, exanthem, or enanthem. Urology: No urethral discharge. No betancourt catheter. Psychiatry: No flat affect. Smiles appropriately. Diagnostics: EKG (08/14/2024, 11:57pm): atrial-sensing, ventricle-pacing @ 80, DC 188, QTC 449 (by my review). LABS: Recent Results (from the past 24 hour(s)) Troponin - Single Result Value Ref Range Troponin-T, High Sensitivity 28 (H) <=22 ng/L CBC (with Diff) Result Value Ref Range White Blood Cell 9.52 (H) 4.00 - 9.50 x10(3)/mcL Red Blood Cell 4.74 4.58 - 5.54 x10(6)/mcL Hemoglobin 13.7 13.7 - 16.5 g/dL Hematocrit 44.0 40.5 - 48.5 % Mean Cell Volume 92.8 82.9 - 93.1 fL Mean Cell Hemoglobin 28.9 27.5 - 32.1 pg Mean Cell Hemoglobin Concentration 31.1 (L) 32.0 - 35.7 g/dL Platelet 235 145 - 357 x10(3)/mcL Mean Platelet Volume 9.3 7.6 - 12.9 fL RDW Standard Deviation 45.2 (H) 36.0 - 45.0 fL RDW coefficient of variation 13.3 11.4 - 13.8 % NRBC% auto 0.0 % NRBC Absolute <0.01 <0.01 x10(3)/mcL Neutrophil % 57.7 % Neutrophil Absolute (ANC) - Automated 5.50 1.70 - 6.10 x10(3)/mcL Lymph % 28.7 % Lymph Absolute 2.73 0.90 - 3.20 x10(3)/mcL Monocyte % 8.5 % Monocyte Absolute 0.81 0.30 - 0.90 x10(3)/mcL Eos % 3.4 % Eos Absolute 0.32 0.00 - 0.40 x10(3)/mcL Basophil % 1.2 % Baso Absolute 0.11 (H) 0.00 - 0.10 x10(3)/mcL Immature Gran % 0.5 % Immature Gran Absolute 0.05 (H) 0.00 - 0.04 x10(3)/mcL Hemoglobin A1c Result Value Ref Range Hemoglobin A1c 6.9 (H) 4.3 - 5.6 % Estimated Average Glucose 151 mg/dL Heparin (unfractionated) Level Result Value Ref Range UF Heparin 1.03 (CRIT) IU/mL ASSESSMENT: 69 years old male with PMH of FULL CODE @ home, obesity with BMI 32.88 (height 167.6 cm; weight 92.4 kg), RAMIRO on nocturnal CPAP, former tobacco abuse with no subsequent diagnosis of COPD, not on home O2 or home steroids, major depression on escitalopram 20mg PO daily, recent development of normocytic, normochromic anemia with baseline Hb range, 9.8 - 13.1 g/dL (06/14/2024 - 06/17/2024), and no screening colonoscopy ever, malignant melanoma of left parietal region, s/p resection (2017, [facility], [place], [place]), insulin-dependent DM2 on aspart insulin 20 units SQ tid before meals, tresiba insulin 30 units SQ daily, metformin 1000mg PO bid, and empagliflozin 25mg PO daily, with HbA1c 7.1% (06/06/2024, 3:33am), CAD s/p acute MA #1 (09/2003, s/p stent x 1, [facility], [place], [place]). acute MA #2 (03/2018, s/p stent x 1, [place], [place] acute MA #3 (01/2019, s/p stent x 1, [place] acute MA #4 (06/03/24,s/p 3vCABG, [facility], [place], [place])(CT Surgeon Dr. Bobby Loja, 06/14/2024, 8:48am). Cf., troponin-T #1 208 ng/L (06/03/2024, 2:13am). Cf., troponin-T #2 218 ng/L (06/03/2024, 3:07am). Cf., troponin-T #3 254 ng/L (06/03/2024, 5:11am). Cf., troponin-T #4 284 ng/L (06/03/2024, 7:39am). Cf., troponin-T #5 289 ng/L (06/03/2024, 8:27am). Cf., EKG (06/03/2024, 1:45am): atrial-sensing, ventricle-pacing @ 63, DC 168, QTC 409 (by my review). Patient subsequently developed chronic systolic CHF with reduced LVEF 30-35% (as noted on 06/14/2024, 7:20am KAREN, [facility] [place] Hosea Ardon), and chronic diastolic CHF, for which patient underwent AICD (06/2019, [facility], [place], [place]). Patient reports no paroxysmal nocturnal dyspnea, maintains a dry baseline weight of 210 pounds, and sleeps on a regular bed with 1 pillow all the time. Patient subsequently underwent left heart catheterization (06/02/2024, 12:42am, [facility] [place] Nuha Shen[place] which revealed: Hemodynamics: Left Heart Pressures Resting: Syst Diast [...] catheter and a 3.5 Fr [place] 20 Mhz using Manual pullback. Imaging was [...] catheter and a 3.5 Fr [place] [place] [place] 20 Mhz using Manual pullback. Imaging was [...] this procedure, it was recommended that the patient be managed with medical therapy. (As per [facility] [place] CAR[place]. Nuha Shen). Patient subsequently underwent TTE (06/03/2024, 2:23am, [facility] [place] fellow Dr. Sascha Silva) whichrevealed: Left Ventricle Left ventricle is mild to [...] The mitral valve leaflets are thickened. I WMSI = 2.25 % Normal = 0 Segments Size X - Cannot 2 - 4 - 1-2 small Interpret 1 - Normal Hypokinetic 3 - Akinetic Dyskinetic 3-5 moderate 5 - 6-14 large Aneurysmal 15-16 diffuse (As per [facility] [place] fellow [place]. Sascha Silva). Patient subsequently underwent TTE (06/03/2024, 8:46am, [facility] [place] Jonnie Jordan) which revealed: Left Ventricle Left ventricle is of normal [...] relaxation with elevated left ventricular filling pressure). (As per [facility] [place]. Jonnie Jordan). Patient subsequently underwent cardiac catheterization (06/13/2024, 9:15am, [facility] [place]. Nuha Shen), which revealed: Hemodynamics: Left Heart Pressures Resting: Syst Diast [...] situation may require modification of this regimen. (as per [facility] [place]. Nuha Shen). Patient subsequently underwent KAREN (06/14/2024, 7:20am, [facility] [place] Hosea Ardon), which revealed: KAREN is done at the request of CT surgery for evaluation and monitoring during inpatient CABG surgery. 2. Moderately dilated left ventricle with LVEF calculated at 25-28%. 3. IABP in good position. 4. After bypass on 3-4 mcg.kg/min dobutamine and IABP support, LVEF improved to 30-35% with improved function of the anterior fofana. 5. RIJ is guided by KAREN. The aortic cannula and cross clamp site are guided by Epi-aortic ultrasound. 6. Unusual fibrinous mass at the oriffice of the left atrial appendage. 7. No MARIALUISA thrombus and good velocity therein. This surgeon was made aware of this mass after consultation with other car repairer apprentice experts and the decision was made by surgeon to explore the mass. 8. No significant valvular disease. Patient subsequently underwent biopsy (06/14/2024, 9:53am) of unusual fibrinous mass at the orifice of the left atrial appendage (as noted on 06/14/2024, 7:20am, [facility] [place] Hosea Ardon): A. Soft Tissue Mass, Mediastinal Mass, Excision: - Atrophic thymic tissue B. Heart, Atrial Appendage, Left, Excision: - Mild myocyte hypertrophy (as per [facility] [place]. Sandra Salas). As noted above, patient underwent 3v CABG, excision of mediastinal tumor, and exploration / oversewof atrial appendage (06/14/2024, 8:48am, [facility] [place]. Bobby Loja). Patient now reports: I was at Cardiac Rehab for the first time ever, at [facility] ([place], [place]) today, on Friday morning (08/14/2024, 10:00am) and my blood pressure was low at 82/64 when the nurse took my blood pressure before I went running on the treadmill. So, the nurse took my blood pressure again in a few minutes and it was higher at 96/60, so they let me run on the treadmill. I was running for about 6 minutes, and then I stopped running because I felt a little lightheadedwith foggy vision, not blindness. The nurse took my blood pressure again and said that it was low again with the top number around 80, I can't remember the exact blood pressure, but it was low, so they sent me from the Cardiac Rehab Office at [facility] ([place], [place]) to the ER at [facility] ([place], [place]) to get checked out and the ER doctor said that my heart enzyme (e.g., troponin-I) was a little high at 309 ng/L (08/13/2024, 11:27am). I felt fine then; I didn't feel lightheaded or have any foggy vision anymore; that lasted about 45 minutes and then went away on its own and never came back. The ER doc said that I had something called demand ischemia and he said that since I had my triple bypass heart surgery at [facility] 06/14/2024, 8:48am with [facility] [place]. Bobby Loja, I should go to [facility] and seeDr. Loja again. I remember when I was at [facility] back in June last year (2023), and the doctors tried cardiac cath, but they couldn't do it because they said my arteries were too calcified, and that I had to get the triple bypass heart surgery instead. I feel fine now. The lightheadedness and foggy vision never came back. Patient was subsequently diagnosed with the following conditions @ [facility] ([place], [place]) on 08/13/2024: 1. R/O acute NSTEMI. 2. Acute dehydration with admitting BUN:creatinine ratio approximately 20:1 (cf., BUN 29, creatinine 1.5)(08/13/2024, 11:27am). 3. Chronic hyperglycemia with admitting glucose 186 mg/dL (08/13/2024, 11:27am). 4. Chronic normocytic, normochromic anemia with admitting Hb 13.4 g/dL, MCV 93.0, MCHC 31.1 (08/13/2024, 11:27am). TREATMENT PLAN: To address #1, patient was placed on telemetry and received: A. ASA 81mg PO x 1 dose (08/14/2024, 8:30am). B. Atorvastatin 80mg PO x 1 dose (08/14/2024, 8:30am). C. Carvedilol 12.5mg PO x 2 doses (08/13/2024, 8:00pm, 08/14/2024, 8:43am). D. Plavix 75mg PO x 1 dose (08/14/2024, 8:30am). E. Heparin gtt @ 1000 units/hr (08/13/2024, 3:00pm). F. Sacubitril/Valsartan 49/51 mg PO x 2 doses (08/13/2024, 8:00pm; 08/14/2024, 8:43am). Patient was subsequently transferred from [facility] ([place] [place] to undergo TTE and formal Cardiac Surgery Service evaluation with Dr. Bobby Loja in the 08/15/2024 am. My clinical index of suspicion for acute NSTEMI remains low, but patient is being provided ROBYN (morphine, O2, NTG, ASA), plavix 75mg PO daily, atorvastatin 80mg PO qpm, carvedilol 12.5mg PO bid, sacubitril 49mg - valsartan 51mg PO bid, and heparin infusion. To address #2, patient received 1 liter of D5 - lactated Ringers @ 50 mL/hr (08/14/2024, 12:00am). Patient awaits repeat BUN:creatinine ratio testing in the 08/15/2024, 1:11am. To address #3, patient received metformin 1000mg PO x 1 dose (08/14/2024, 8:00am), empagliflozin 25mg PO x 1 dose (08/14/2024, 8:30am) in [facility] ([place], [place]). Patient will not continue with home-scheduled metformin 1000mg PO bid [facility] the potential for metformin to increase the risk of post-contrast nephropathy should this patient undergo any procedure involving IV contrast while in [facility] bed #373-A. On a separate note, patient will not continue with home-scheduled empagliflozin 25mg PO daily given the potential for this SGLT2 inhibitor to cause post-operative ketoacidosis and/or urinary tract infections. In fact, empa gliflozin and other SGLT2 inhibitors should be held for at least 3-4 days PRIOR to any surgical procedure. In lieu of these two home-scheduled medications, patient will be provided a carbohydrate consistent diet, POC glucose qac + qhs, and lispro insulin sliding scale qac + q hs, until 12:00am, 08/15/2024, at which time, patient will then be NPO, POC glucose q6, and lispro insulin sliding scale q6, for any procedure(s) recommended by [facility] [place]. Bobby Loja. To address #4, patient was observed in [facility] ER. On arrival to [facility], I ordered iron studies (e.g., iron, TIBC, and ferritin) in this colonoscopy-naive patient. Moreover, I encouraged patient to follow up with his PCP Dr. Mauro Berumen ([place], [place]) within 5 days of hospital discharge, in order to arrange for outpatient screening colonoscopy within 90 days of hospital discharge, especially given his past medical history of former tobacco abuse with no subsequent diagnosis of COPD, not on home O2 or home steroids, major depression on escitalopram 20mg PO daily, recent development of normocytic, normochromic anemia with baseline Hb range,9.8 - 13.1 g/dL (06/14/2024 - 06/17/2024), and no screening colonoscopy ever, malignant melanoma ofleft parietal region, s/p resection (2017, [facility], [place], [place]), and who is now 69 years of age. Patient reports that he will comply with this recommendation. Of note, patient reports no mucosal bleeding (cf., epistaxis, hemoptysis, hematemesis, hematochezia, melena, hematuria) and remains hemodynamically stable. Subsequently, I will check repeat Hb level in the 08/15/2024, 1:11am, and reserve packed RBC transfusion for Hb level less than 7 g/dL. Provider: Octaviano Quiñones MD Provider #: pager #[phone] 08/14/2024 documented in this encounter Miscellaneous Notes * Care Management Discharge - Vargas Delong RN - 08/16/2024 1:15 PM EST CARE MANAGEMENT FINAL DISCHARGE NOTE Chart reviewed, care reviewed with primary team and at interdisciplinary rounds. Patient is medically ready for discharge to home. Needs for Transition of Care: per discharge instructions Plan for discharge is: Home w/o Services Outpatient Agency/Support Group Needs: None Agency Referrals & Follow-up Care: per discharge instructions Transportation: family or friend will provide Wheelchair van/Ambulance? No Functional status prior to admission: Independent Home Environment: Others in the home: spouse. Current Living Arrangements: home/apartment/condo. Accessibility Concerns:1st floor apartment w/ 0 NADER. Current Functional Ability: Independent DME used at home: grab bar - tub/shower, shower chair, respiratory supplies, other (see comments) (CPAP) DME Needed at Discharge: N/A Patient is insured through: Primary Insurance: Tame Payor: [employer] Secondary Insurance: N/A Prescription Coverage: Yes (managed medicare) This plan was formulated with input from patient and team. All are in agreement with plan. * Initial Assessments - Vargas Delong RN - 08/16/2024 1:10 PM EST Office of Care Management Initial Assessment Vargas Delong RN reviewed record and discussed patient with Care Team. Source of Information: Team, bedside nurse, medical record, and Patient CM/PROFESSOR OF EARLY CHILDHOOD EDUCATION met with patient face to face. Introduced self/reviewed role; services accepted. Admitted From: Transfer from another hospital Location: [facility] Reason for Hospitalization: I went to cardiac rehab and my BP was crap Past medical History: No past medical history on file. Hospitalizations Within the Past 30 Days: no previous admission in last 30 days Current Decision-Making Capacity: Self If AD's have not been completed the following surrogate would be surrogate decision maker per [place] surrogate decision making law. (Only good for 180 days) Any patient receiving care in [place] must abide by [place] law. The hierarchy for surrogate decision making is: (a) Patient???s spouse or civil union partner unless there is a divorce proceeding, separation agreement, or restraining order limiting that person???s relationship with the patient. (b) Any adult son or daughter of the patient. (c) Either parent of the patient. (d) Any adult brother or sister of the patient. (e) Any adult grandchild of the patient. (f) Any grandparent of the patient. (g) Any adult aunt, uncle, niece, or nephew of the patient. (h) A close friend of the patient. (i) The agent with financial power of criminal defense attorney or a conservator appointed in accordance with RSA 464-A. (j) The guardian of the patient???s estate. Advance Care Planning: Attempt Cardiopulmonary Resuscitation - Inpatient <no information> -Advanced Directive: No, declines (spouse is SDM) Current Coping/Education/Information Needs: pending clinical course Current Functional Ability: Independent Functional Status Prior to Admission: Independent Prior ADLs & IADLs: Independent with all ADLs & IADLs Home Environment: Others in the home: spouse. Current Living Arrangements: home/apartment/condo. Accessibility Concerns:1st floor apartment w/ 0 NADER. In the last 12 months, was there a time when you were not able to pay the mortgage or rent on time?: No In the past 12 months, how many times have you moved where you were living?: 0 At any time in the past 12 months, were you homeless or living in a correction (including now)?: No In the past 12 months has the [employer], [employer], or water [employer] threatened to shut off services in your [...] needed for daily living?: No Current DME: grab bar - tub/shower, shower chair, respiratory supplies, other (see comments) (CPAP) Home Address confirmed as: [address] [place] [id number] Social & Family Supports: All names listed below confirmed with patient as current and correct Extended Emergency Contact Information Primary Emergency Contact: Mandy Mehta Mobile Relation: Spouse Current Care Provided by: self Provides Primary Care For: no one Caregiver if needed: spouse Quality of Family relationships: helpful, involved, supportive Community Resources being provided currently: none Behavioral Health History: denies Substance Use/Abuse confirmed: Social History Tobacco Use Smoking Status Former Current packs/day: 0.25 Types: Cigarettes Smokeless Tobacco [...] points: Addiction likely Other Pertinent/Service Specific Information: N/A Health/Prescription Coverage: Primary Insurance: Tame (sent to [employer] for scanning into pt's chart) Payor: Tame Secondary Insurance: N/A ONLY if patient has Medicare A&B - Does this patient have secondary insurance?: ([employer] managed medicare (sent to [employer] for scanning into chart)) ; Prescription Coverage: Yes (managed medicare) Are you financially able to cover the cost / copay of your medications?: Yes Preferred Pharmacy: [id number] - [place], [place] - [address] [id number] Status: Patient is a : No Primary Care Provider confirmed: Mauro Berumen MD [phone] Patient/Caregiver Goals of Treatment: home when MR Potential Needs for Transition of Care: none Agency Referrals: pending clinical course Transportation: no concerns Transportation Anticipated: family or friend will provide Medications Anticipated: patient able to pickling solution maker, family/friend will pickling solution maker Concerns to be Addressed: no discharge needs identified, denies needs/concerns at this time Assessment: Patient is admitted to Cardiology CV Hospitalist 1 service for elevated troponin Plan going forward: Per the team, plan for d/c today without services. Care Management team will continue to follow and assist with discharge planning and coordination ofcare as indicated. * Plan of Care - Mary Lou Lane RN - 08/16/2024 11:25 AM ESTSummary: Day shift summary OUTCOME EVALUATION NOTE: OUTCOME SUMMARY: George Mehta is a 69 y.o. male admitted with hypotension. This shift he is being discharged home. Pt is A+Ox4 and their v/s have been stable. Pt is displaying no signs or symptoms of distress. Pt is 100% AV paced. The plan is for him to f/u with outpatient cardiology. CPG GOAL OUTCOME EVALUATION: Problem: Adult Inpatient [...] Outcome: Ongoing (Interventions Implemented as Appropriate) Problem: Chest Pain Goal: Resolution of Chest Pain Symptoms Outcome: Ongoing (Interventions Implemented as Appropriate) Problem: Arrhythmia/Dysrhythmia (Cardiac Catheterization) Goal: Stable Heart Rate and Rhythm Outcome: Ongoing (Interventions Implemented as Appropriate) Problem: Bleeding (Cardiac Catheterization) Goal: Absence of Bleeding Outcome: Ongoing (Interventions Implemented as Appropriate) Problem: Contrast-Induced Injury Risk (Cardiac Catheterization) Goal: Absence of Contrast-Induced Injury Outcome: Ongoing (Interventions Implemented as Appropriate) Problem: Embolism (Cardiac Catheterization) Goal: Absence of Embolism Signs and Symptoms Outcome: Ongoing (Interventions Implemented as Appropriate) Problem: Ongoing Anesthesia/Sedation Effects (Cardiac Catheterization) Goal: Anesthesia/Sedation Recovery Outcome: Ongoing (Interventions Implemented as Appropriate) Problem: Pain (Cardiac Catheterization) Goal: Acceptable Pain Control Outcome: Ongoing (Interventions Implemented as Appropriate) Problem: Vascular Access Protection (Cardiac Catheterization) Goal: Absence of Vascular Access Complication Outcome: Ongoing (Interventions Implemented as Appropriate) Problem: Fall Injury Risk Goal: Absence of Fall and Fall-Related Injury Outcome: Ongoing (Interventions Implemented as Appropriate) Mary Lou PIERRE, RN * Plan of Care - Mary Lou Lane RN - 08/15/2024 10:59 AM ESTSummary: Day shift summary OUTCOME EVALUATION NOTE: OUTCOME SUMMARY: George Mehta is a 69 y.o. male admitted with symptomatic hypotension. This shift orthostatic BP's were completed and JUVENTINO hose were applied. Pt is A+Ox4 and their v/s have been stable. Pt is displaying no signs or symptoms of distress. Pt is in AV paced. The plan is for orthostatics again in the AM and BG control. CPG GOAL OUTCOME EVALUATION: Problem: Adult Inpatient [...] Outcome: Ongoing (Interventions Implemented as Appropriate) Problem: Chest Pain Goal: Resolution of Chest Pain Symptoms Outcome: Ongoing (Interventions Implemented as Appropriate) Problem: Arrhythmia/Dysrhythmia (Cardiac Catheterization) Goal: Stable Heart Rate and Rhythm Outcome: Ongoing (Interventions Implemented as Appropriate) Problem: Bleeding (Cardiac Catheterization) Goal: Absence of Bleeding Outcome: Ongoing (Interventions Implemented as Appropriate) Problem: Contrast-Induced Injury Risk (Cardiac Catheterization) Goal: Absence of Contrast-Induced Injury Outcome: Ongoing (Interventions Implemented as Appropriate) Problem: Embolism (Cardiac Catheterization) Goal: Absence of Embolism Signs and Symptoms Outcome: Ongoing (Interventions Implemented as Appropriate) Problem: Ongoing Anesthesia/Sedation Effects (Cardiac Catheterization) Goal: Anesthesia/Sedation Recovery Outcome: Ongoing (Interventions Implemented as Appropriate) Problem: Pain (Cardiac Catheterization) Goal: Acceptable Pain Control Outcome: Ongoing (Interventions Implemented as Appropriate) Problem: Vascular Access Protection (Cardiac Catheterization) Goal: Absence of Vascular Access Complication Outcome: Ongoing (Interventions Implemented as Appropriate) Problem: Fall Injury Risk Goal: Absence of Fall and Fall-Related Injury Outcome: Ongoing (Interventions Implemented as Appropriate) Mary Lou PIERRE, RN documented in this encounter Plan of Treatment Upcoming Encounters Date Type Department Care Team (Late st Contact Info) Description 09/29/2024 2:00 PM EST Office Visit Cardiology at [address] [place] [address] Moi Falcon MD [facility] [place] [address] documented as of this encounter Procedures Procedure Name Priority Date/Time Associated Diagnosis Comments POC, GLUCOSE Routine 08/16/2024 12:03 PM EST EKG 12-LEAD Routine 08/16/2024 8:44 AM EST Elevated troponin POC, GLUCOSE Routine 08/16/2024 8:20 AM EST HEPARIN (UNFRACTIONATED) LEVEL Timed 08/16/2024 12:32 AM EST CBC (WITH DIFF) Routine 08/16/2024 12:32 AM EST MAGNESIUM Routine 08/16/2024 12:32 AM EST BASIC METABOLIC PANEL Routine 08/16/2024 12:32 AM EST POC, GLUCOSE Routine 08/15/2024 8:09 PM EST HEPARIN (UNFRACTIONATED) LEVEL Timed 08/15/2024 7:06 PM EST POC, GLUCOSE Routine 08/15/2024 5:08 PM EST POC, GLUCOSE Routine 08/15/2024 3:29 PM EST ECHO COMPLETE W CONTRAST Routine 08/15/2024 12:57 PM EST Elevated troponin POC, GLUCOSE Routine 08/15/2024 12:48 PM EST HEPARIN (UNFRACTIONATED) LEVEL Timed 08/15/2024 11:32 AM EST POC, GLUCOSE Routine 08/15/2024 11:15 AM EST POC, GLUCOSE Routine 08/15/2024 8:01 AM EST TROPONIN - SINGLE Timed 08/15/2024 5:0 0 AM EST BASIC METABOLIC PANEL Add-On 08/15/2024 5:00 AM EST HEPARIN (UNFRACTIONATED) LEVEL Timed 08/15/2024 4:59 AM EST CBC (WITH DIFF) Routine 08/15/2024 4:59 AM EST FERRITIN STAT 08/15/2024 4:59 AM EST EKG 12-LEAD STAT 08/14/2024 11:57 PM EST Elevated troponin POC, GLUCOSE Routine 08/14/2024 11:56 PM EST TROPONIN - SINGLE STAT 08/14/2024 9:4 0 PM EST HEPARIN (UNFRACTIONATED) LEVEL Timed 08/14/2024 9:40 PM EST IRON AND TIBC STAT Add-On 08/14/2024 9:40 PM EST CBC (WITH DIFF) Routine 08/14/2024 9:40 PM EST HEMOGLOBIN A1C STAT 08/14/2024 9:40 PM EST documented in this encounter Results * (ABNORMAL) POC, GLUCOSE (08/16/2024 12:03 PM EST) [facility] Glucometer, POC 263(H) 65 - 199 mg/dL 08/16/2024 12:03 PM EST [facility] Comment:Supplemental ranges: <140 mg/dL before meals <180 mg/dL all other times of the day. Blood CAPILLARY BLOOD / Unknown 08/16/2024 12:03 PM EST 08/16/2024 12:03 PM EST Evelyn Mckinnon MD POINT OF CARE TEST O RDERABLES Performing Organization Address [facility] de Phone Number [facility] [place] [address] * EKG 12 Lead (08/16/2024 8:44 AM EST) Ventricular rate 80 BPM MUSE SYSTEM Atrial Rate 80 BPM MUSE SYSTEM P-R Interval 180 ms MUSE SYSTEM QRS Duration 90 ms MUSE SYSTEM Q-T Interval 374 ms MUSE SYSTEM QTC Calculated (Bezet) 431 ms MUSE SYSTEM Calculated [place] 63 degrees MUSE SYSTEM Calculated R [place] 22 degrees MUSE SYSTEM Calculated [place] 129 degrees MUSE SYSTEM INTERPRETATION AV dual-paced rhythm Abnormal ECG When compared with ECG of 14-AUG-2024 23:57, No significant change was found Confirmed by MD JEAN, KRISS ([id number]) on 08/16/2024 9:37:14 AM MUSE SYSTEM 08/16/2024 8:44 AM EST 08/16/2024 9:37 AM EST Evelyn Mckinnon MD ECG ORDERABLES Performing Organization Address [facility] de Phone Number MUSE SYSTEM * POC, GLUCOSE (08/16/2024 8:20 AM EST) Glucometer, POC 164 65 - 199 mg/dL 08/16/2024 8:20 AM EST [facility] Comment:Supplemental ranges: <140 mg/dL before meals <180 mg/dL all other times of the day. Blood CAPILLARY BLOOD / Unknown 08/16/2024 8:20 AM EST 08/16/2024 8:20 AM EST Evelyn Mckinnon MD POINT OF CARE TEST O RDERAPIETER [facility] [place] [address] * (ABNORMAL) CBC (with Diff) (08/16/2024 12:32 AM EST) White Blood Cell 8.55 4.00 - 9.50 x10(3)/mc L 08/16/2024 12:47 AM [facility] Red Blood Cell 4.17(L) 4.58 - 5.54 x10(6)/mc L 08/16/2024 12:47 AM [facility] Hemoglobin 12.3(L) 13.7 - 16.5 g/dL 08/16/2024 12:47 AM [facility] Hematocrit 37.9(L) 40.5 - 48.5 % 08/16/2024 12:47 AM [facility] Mean Cell Volume 90.9 82.9 - 93.1 fL 08/16/2024 12:47 AM [facility] Mean Cell Hemoglobin 29.5 27.5 - 32.1 pg 08/16/2024 12:47 AM [facility] Mean Cell Hemoglobin Concentration 32.5 32.0 - 35.7 g/dL 08/16/2024 12:47 AM [facility] Platelet 192 145 - 357 x10(3)/mc L 08/16/2024 12:47 AM [facility] Mean Platelet Volume 9.5 7.6 - 12.9 fL 08/16/2024 12:47 AM [facility] RDW Standard Deviation 44.7 36.0 - 45.0 fL 08/16/2024 12:47 AM [facility] RDW coefficient of variation 13.2 11.4 - 13.8 % 08/16/2024 12:47 AM [facility] NRBC% auto 0.0 % 08/16/2024 12:47 AM [facility] NRBC Absolute <0.01 <0.01 x10(3)/mc L 08/16/2024 12:47 AM [facility] Neutrophil % 53.8 % 08/16/2024 12:47 AM [facility] Neutrophil Absolute (ANC) - Automated 4.61 1.70 - 6.10 x10(3)/mc L 08/16/2024 12:47 AM [facility] Lymph % 30.1 % 08/16/2024 12:47 AM [facility] Lymph Absolute 2.57 0.90 - 3.20 x10(3)/mc L 08/16/2024 12:47 AM [facility] Monocyte % 10.2 % 08/16/2024 12:47 AM [facility] Monocyte Absolute 0.87 0.30 - 0.90 x10(3)/mc L 08/16/2024 12:47 AM [facility] Eos % 4.8 % 08/16/2024 12:47 AM [facility] Eos Absolute 0.41(H) 0.00 - 0.40 x10(3)/mc L 08/16/2024 12:47 AM [facility] Basophil % 0.7 % 08/16/2024 12:47 AM [facility] Baso Absolute 0.06 0.00 - 0.10 x10(3)/mc L 08/16/2024 12:47 AM [facility] Immature Gran % 0.4 % 12:47 AM [facility] Immature Gran Absolute <0.04 0.00 - 0.04 x10(3)/mc L 08/16/2024 12:47 AM [facility] Blood VENOUS BLOOD SPECIMEN / Unknown Venipuncture / Unknown 08/16/2024 12:32 AM EST 08/16/2024 12:41 AM EST Octaviano Quiñones MD HEMATOLOGY ORDERABLE S [facility] [place] [address] * Heparin (unfractionated) Level (08/16/2024 12:32 AM EST) Pathologist [facility] UF Heparin 0.32 IU/mL 08/16/2024 12:55 AM EST [facility] Comment: [...] EST Octaviano Quiñones MD HEMATOLOGY ORDERABLE S [facility] [place] [address] * Magnesium (08/16/2024 12:32 AM EST) Pathologist [facility] Magnesium 0.85 0.69 - 1.07 mMol/L 08/16/2024 1:12 AM EST [facility] Blood VENOUS BLOOD SPECIMEN / Unknown Venipuncture / Unknown 08/16/2024 12:32 AM EST 08/16/2024 12:41 AM EST Evelyn Mckinnon MD CHEMISTRY ORDERABLES [facility] [place] [address] * (ABNORMAL) Basic Metabolic Panel (08/16/2024 12:32 AM [facility]) Glucose 210(H) 65 - 199 mg/dL 08/16/2024 1:12 AM [facility] Comment:Glucose Concentratio n >=200 mg/dL plus symptoms is consistent with Diabetes Mellitus. Blood Urea Nitrogen 23(H) 10 - 20 mg/dL 08/16/2024 1:12 AM [facility] Creatinine 1.02 0.80 - 1.50 mg/dL 08/16/2024 1:12 AM [facility] Sodium 136 135 - 145 mMol/L 08/16/2024 1:12 AM [facility] Potassium 4.3 3.5 - 5.0 mMol/L 08/16/2024 1:12 AM [facility] Chloride 101 98 - 107 mMol/L 08/16/2024 1:12 AM [facility] Carbon Dioxide 25 22 - 31 mMol/L 08/16/2024 1:12 AM [facility] Anion Gap 10 5 - 15 mMol/L 08/16/2024 1:12 AM [facility] Calcium 8.9 8.5 - 10.5 mg/dL 08/16/2024 1:12 AM [facility] Est Glomerular Filtration Rate - Male 81 mL/min/1. 73 m?? 08/16/2024 1:12 AM [facility] Comment: This patient's estimated GFR [...] Mckinnon MD CHEMISTRY ORDERABLES Performing Organization Address [facility] Co de Phone Number [facility] [place] [address] * POC, GLUCOSE (08/15/2024 8:09 PM EST) Glucometer, POC 129 65 - 199 mg/dL 08/15/2024 8:10 PM EST [facility] Comment:Supplemental ranges: <140 mg/dL before meals <180 mg/dL all other times of the day. Blood CAPILLARY BLOOD / Unknown 08/15/2024 8:09 PM EST 08/15/2024 8:10 PM EST Evelyn Mckinnon MD POINT OF CARE TEST O RDERABLES Performing Organization Address [facility] de Phone Number [facility] [place] [address] * Heparin (unfractionated) Level (08/15/2024 7:06 PM EST) UF Heparin 0.31 IU/mL 08/15/2024 7:21 PM EST [facility] Comment: [...] SPECIMEN / Unknown Venipuncture / Unknown 08/15/2024 7:06 PM EST 08/15/2024 7:10 PM EST Octaviano Quiñones MD HEMATOLOGY ORDERABLE S Performing Organization Address [facility] Co de Phone Number [facility] [place] [address] * POC, GLUCOSE (08/15/2024 5:08 PM EST) Glucometer, POC 151 65 - 199 mg/dL 08/15/2024 5:08 PM EST [facility] Comment:Supplemental ranges: <140 mg/dL before meals <180 mg/dL all other times of the day. Blood CAPILLARY BLOOD / Unknown 08/15/2024 5:08 PM EST 08/15/2024 5:09 PM EST Evelyn Mckinnon MD POINT OF CARE TEST O NIKA Performing Organization Address [facility] Co de Phone Number [facility] [place] [address] * POC, GLUCOSE (08/15/2024 3:29 PM EST) Glucometer, POC 168 65 - 199 mg/dL 08/16/2024 7:11 AM EST [facility] Comment:Supplemental ranges: <140 mg/dL before meals <180 mg/dL all other times of the day. Blood CAPILLARY BLOOD / Unknown 08/15/2024 3:29 PM EST 08/16/2024 7:11 AM EST Evelyn Mckinnon MD POINT OF CARE TEST O NIKA Performing Organization Address [facility] Co de Phone Number [facility] [place] [address] * ECHO COMPLETE W CONTRAST (08/15/2024 12:57 PM EST) EF 31 HEARTLAB SYSTEM Anatomical Region Laterality Modality Cardiac Other 08/15/2024 12:0 0 PM EST Narrative 08/15/2024 1:42 PM EST [address] [place] [address] ? Echocardiogram Report Name: GEORGE MEHTA ?Study Date: 08/15/2024 12:00 PMBP: 118/72 mmHg : 1955 ? Height: 168 cm ? Account: [id number] Age: 69 yrs ? Weight: 93 kg Gender: Male ?BSA: 2.0 m2 Ordering Physician: OCTAVIANO QUIÑONES Referring Physician: ANA COLON Performed By: Sandra Worthy RDCS Reason For Study: Elevated troponin Exam Location: [facility]. Interpretation Summary 1. Left ventricular systolic function [...] side images at end of report). Procedure Complete-[id number]. Image enhancement Definity was used for left [...] ?large Aneurysmal ?15-16 ?? diffuse Procedure Note Jim Benites MD - 08/15/2024 [address] [place] [address] Echocardiogram Report Name: GEORGE MEHTA Study Date: 2:00 PMBP: 118/72 mmHg : 1955 Height: 168 cm Account: [id number] Age: 69 yrs Weight: 93 kg Gender: Male BSA: 2.0 m2 Ordering Physician: OCTAVIANO QUIÑONES Referring Physician: ANA COLON Performed By: Sandra Worthy RDCS Reason For Study: Elevated troponin Exam Location: [facility]. Interpretation Summary 1. Left ventricular systolic function [...] side images at end of report). Procedure Complete-57701. Image enhancement Definity was used for left [...] Octaviano Quiñones MD ECHO ORDERABLES * (ABNORMAL) POC, GLUCOSE (08/15/2024 12:48 PM EST) Pathologist [facility] Glucometer, POC 205(H) 65 - 199 mg/dL 08/15/2024 12:48 PM EST [facility] Comment:Supplemental ranges: <140 mg/dL before meals <180 mg/dL all other times of the day. Blood CAPILLARY BLOOD / Unknown 08/15/2024 12:48 PM EST 08/15/2024 12:48 PM EST Evelyn Mckinnon MD POINT OF CARE TEST O RDERABLES [facility] [place] [address] * Heparin (unfractionated) Level (08/15/2024 11:32 AM EST) [facility] UF Heparin 0.29 IU/mL 08/15/2024 11:48 AM EST [facility] Comment: [...] SPECIMEN / Unknown Venipuncture / Unknown 08/15/2024 11:32 AM EST 08/15/2024 11:38 AM EST Octaviano Quiñones MD HEMATOLOGY ORDERABLE S [facility] [place] [address] * (ABNORMAL) POC, GLUCOSE (08/15/2024 11:15 AM EST) Glucometer, POC 253(H) 65 - 199 mg/dL 08/16/2024 7:11 AM EST [facility] Comment:Supplemental ranges: <140 mg/dL before meals <180 mg/dL all other times of the day. Blood CAPILLARY BLOOD / Unknown 08/15/2024 11:15 AM EST 08/16/2024 7:11 AM EST Evelyn Mckinnon MD POINT OF CARE TEST Abimael MAHER Performing Organization Address City/[facility]/ZIP Co de Phone Number [facility] [place] [address] * POC, GLUCOSE (08/15/2024 8:01 AM EST) Glucometer, POC 191 65 - 199 mg/dL 08/15/2024 8:01 AM EST [facility] Comment:Supplemental ranges: <140 mg/dL before meals <180 mg/dL all other times of the day. Blood CAPILLARY BLOOD / Unknown 08/15/2024 8:01 AM EST 08/15/2024 8:01 AM EST Evelyn Mckinnon MD POINT OF CARE TEST O NIKA [facility] [place] [address] * (ABNORMAL) Basic Metabolic Panel (08/15/2024 5:00 AM EST) Glucose 184 65 - 199 mg/dL 08/15/2024 7:20 AM [facility] Comment:Glucose Concentratio n >=200 mg/dL plus symptoms is consistent with Diabetes Mellitus. Blood Urea Nitrogen 23(H) 10 - 20 mg/dL 08/15/2024 7:20 AM [facility] Creatinine 1.07 0.80 - 1.50 mg/dL 08/15/2024 7:20 AM [facility] Sodium 139 135 - 145 mMol/L 08/15/2024 7:20 AM [facility] Potassium 4.1 3.5 - 5.0 mMol/L 08/15/2024 7:20 AM [facility] Chloride 102 98 - 107 mMol/L 08/15/2024 7:20 AM [facility] Carbon Dioxide 23 22 - 31 mMol/L 08/15/2024 7:20 AM [facility] Anion Gap 14 5 - 15 mMol/L 08/15/2024 7:20 AM [facility] Calcium 9.0 8.5 - 10.5 mg/dL 08/15/2024 7:20 AM [facility] Est Glomerular Filtration Rate - Male 76 mL/min/1. 73 m?? 08/15/2024 7:20 AM [facility] Comment: This patient's estimated GFR [...] 5:00 AM EST 08/15/2024 5:04 AM EST Evelyn Ino MD CHEMISTRY ORDERABLES Performing Organization Address City/[facility]/ZIP Co de Phone Number [facility] [place] [address] * (ABNORMAL) Troponin - Single (08/15/2024 5:00 AM EST) Troponin-T, High Sensitivity 27(H) <=22 ng/L 08/15/2024 5:33 AM EST [facility] Comment: [...] value can be found in the [facility] Laboratory Test Catalog Troponin - [email or web address]-.testcatalog.org/catalogs/565/files/95749 Reference: Fourth Bayard Definition of Myocardial Infarction. Journal of the [place] [employer] 2018;72:7179-9596 Blood VENOUS BLOOD SPECIMEN / Unknown Venipuncture / Unknown 08/15/2024 5:00 AM EST 08/15/2024 5:04 AM EST Octaviano Quiñones MD CHEMISTRY ORDERABLES [facility] [place] [address] * Heparin (unfractionated) Level (08/15/2024 4:59 AM EST) UF Heparin 0.29 IU/mL 08/15/2024 5:16 AM EST [facility] Comment: [...] 08/15/2024 5:04 AM EST Octaviano Quiñones MD HEMATOLOGY ORDERABLE S [facility] [place] [address] * Ferritin (08/15/2024 4:59 AM EST) Ferritin 70 31 - 409 ng/ml 08/15/2024 6:09 AM EST [facility] Blood VENOUS BLOOD SPECIMEN / Unknown Venipuncture / Unknown 08/15/2024 4:59 AM EST 08/15/2024 5:04 AM EST Octaviano Quiñones MD CHEMISTRY ORDERABLES [facility] [place] [address] * (ABNORMAL) CBC (with Diff) (08/15/2024 4:59 AM EST) White Blood Cell 7.12 4.00 - 9.50 x10(3)/mc L 08/15/2024 5:08 AM [facility] Red Blood Cell 4.37(L) 4.58 - 5.54 x10(6)/mc L 08/15/2024 5:08 AM [facility] Hemoglobin 12.9(L) 13.7 - 16.5 g/dL 08/15/2024 5:08 AM [facility] Hematocrit 40.2(L) 40.5 - 48.5 % 08/15/2024 5:08 AM [facility] Mean Cell Volume 92.0 82.9 - 93.1 fL 08/15/2024 5:08 AM [facility] Mean Cell Hemoglobin 29.5 27.5 - 32.1 pg 08/15/2024 5:08 AM [facility] Mean Cell Hemoglobin Concentration 32.1 32.0 - 35.7 g/dL 08/15/2024 5:08 AM [facility] Platelet 196 145 - 357 x10(3)/mc L 08/15/2024 5:08 AM [facility] Mean Platelet Volume 9.2 7.6 - 12.9 fL 08/15/2024 5:08 AM [facility] RDW Standard Deviation 45.7(H) 36.0 - 45.0 fL 08/15/2024 5:08 AM [facility] RDW coefficient of variation 13.4 11.4 - 13.8 % 08/15/2024 5:08 AM [facility] NRBC% auto 0.0 % 08/15/2024 5:08 AM [facility] NRBC Absolute <0.01 <0.01 x10(3)/mc L 08/15/2024 5:08 AM [facility] Neutrophil % 50.1 % 08/15/2024 5:08 AM [facility] Neutrophil Absolute (ANC) - Automated 3.56 1.70 - 6.10 x10(3)/mc L 08/15/2024 5:08 AM [facility] Lymph % 32.0 % 08/15/2024 5:08 AM [facility] Lymph Absolute 2.28 0.90 - 3.20 x10(3)/mc L 08/15/2024 5:08 AM [facility] Monocyte % 11.9 % 08/15/2024 5:08 AM [facility] Monocyte Absolute 0.85 0.30 - 0.90 x10(3)/mc L 08/15/2024 5:08 AM [facility] Eos % 4.6 % 08/15/2024 5:08 AM [facility] Eos Absolute 0.33 0.00 - 0.40 x10(3)/mc L 08/15/2024 5:08 AM [facility] Basophil % 1.0 % 08/15/2024 5:08 AM [facility] Baso Absolute 0.07 0.00 - 0.10 x10(3)/mc L 08/15/2024 5:08 AM [facility] Immature Gran % 0.4 % 5:08 AM [facility] Immature Gran Absolute <0.04 0.00 - 0.04 x10(3)/mc L 08/15/2024 5:08 AM [facility] Blood VENOUS BLOOD SPECIMEN / Unknown Venipuncture / Unknown 08/15/2024 4:59 AM EST 08/15/2024 5:04 AM EST Octaviano Quiñones MD HEMATOLOGY ORDERABLE S [facility] [place] [address] * EKG 12 Lead (08/14/2024 11:57 PM EST) Ventricular rate 80 BPM MUSE SYSTEM Atrial Rate 80 BPM MUSE SYSTEM P-R Interval 188 ms MUSE SYSTEM QRS Duration 98 ms MUSE SYSTEM Q-T Interval 390 ms MUSE SYSTEM QTC Calculated (Bezet) 449 ms MUSE SYSTEM Calculated P [place] 57 degrees MUSE SYSTEM Calculated R [place] 78 degrees MUSE SYSTEM Calculated T [place] -177 degrees MUSE SYSTEM INTERPRETATION AV dual-paced rhythm Abnormal ECG When compared with ECG of 14-JUN-2024 14:46, No significant change was found Confirmed by MD Nikki, Jonnie Godoy ([id number]) on 08/15/2024 12:30:01 PM MUSE SYSTEM 08/14/2024 11:5 7 PM EST 08/15/2024 12:30 PM EST Octaviano Quiñones MD ECG ORDERABLES Performing Organization Address City/[facility]/ZIP Co de Phone Number MUSE SYSTEM * (ABNORMAL) POC, GLUCOSE (08/14/2024 11:56 PM EST) Glucometer, POC 229(H) 65 - 199 mg/dL 08/14/2024 11:56 PM EST [facility] Comment:Supplemental ranges: <140 mg/dL before meals <180 mg/dL all other times of the day. Blood CAPILLARY BLOOD / Unknown 08/14/2024 11:56 PM EST 08/14/2024 11:56 PM EST Evelyn Mckinnon MD POINT OF CARE TEST O RDERABLES Performing Organization Address City/[facility]/ZIP Co de Phone Number [facility] [place] [address] * (ABNORMAL) Iron and TIBC (08/14/2024 9:40 PM EST) Iron 62 45 - 160 mcg/dL 08/15/2024 2:18 AM EST [facility] TIBC 354 250 - 450 mcg/dL 08/15/2024 2:18 AM EST [facility] Iron Saturation 18(L) 20 - 50 % 2:18 AM EST [facility] Blood VENOUS BLOOD SPECIMEN / Unknown Venipuncture / Unknown 08/14/2024 9:40 PM EST 08/14/2024 9:45 PM EST Octaviano Quiñones MD CHEMISTRY ORDERABLES Performing Organization Address [facility]/ZIP Co de Phone Number [facility] [place] [address] * (ABNORMAL) Heparin (unfractionated) Level (08/14/2024 9:40 PM EST) UF Heparin 1.03(HHH) IU/mL 08/14/2024 10:04 PM EST [facility] Comment: [...] 08/14/2024 9:45 PM EST Octaviano Quiñones MD HEMATOLOGY ORDERABLE S Performing Organization Address [facility]/ZIP Co de Phone Number [facility] [place] [address] * (ABNORMAL) Hemoglobin A1c (08/14/2024 9:40 PM EST) Hemoglobin A1c 6.9(H) 4.3 - 5.6 % 08/14/2024 10:06 PM EST [facility] Comment: [...] red blood cell turnover may not be herbicide service sales representative of glycemic control. Reference Interval: 4.3 - 5.6% 5.7 - 6.4%: Consistent with prediabetes >=6.5%: Consistent with diagnosis of diabetes mellitus Estimated Average Glucose 151 mg/dL 08/14/2024 10:06 PM [facility] Blood VENOUS BLOOD SPECIMEN / Unknown Venipuncture / Unknown 08/14/2024 9:40 PM EST 08/14/2024 9:46 PM EST Octaviano Quiñones MD CHEMISTRY ORDERABLES Performing Organization Address City/State/[facility] Co de Phone Number [facility] [place] [address] * (ABNORMAL) CBC (with Diff) (08/14/2024 9:40 PM EST) White Blood Cell 9.52(H) 4.00 - 9.50 x10(3)/mc L 08/14/2024 9:51 PM [facility] Red Blood Cell 4.74 4.58 - 5.54 x10(6)/mc L 08/14/2024 9:51 PM [facility] Hemoglobin 13.7 13.7 - 16.5 g/dL 08/14/2024 9:51 PM [facility] Hematocrit 44.0 40.5 - 48.5 % 08/14/2024 9:51 PM [facility] Mean Cell Volume 92.8 82.9 - 93.1 fL 08/14/2024 9:51 PM [facility] Mean Cell Hemoglobin 28.9 27.5 - 32.1 pg 08/14/2024 9:51 PM [facility] Mean Cell Hemoglobin Concentration 31.1(L) 32.0 - 35.7 g/dL 08/14/2024 9:51 PM [facility] Platelet 235 145 - 357 x10(3)/mc L 08/14/2024 9:51 PM [facility] Mean Platelet Volume 9.3 7.6 - 12.9 fL 08/14/2024 9:51 PM [facility] RDW Standard Deviation 45.2(H) 36.0 - 45.0 fL 08/14/2024 9:51 PM [facility] RDW coefficient of variation 13.3 11.4 - 13.8 % 08/14/2024 9:51 PM [facility] NRBC% auto 0.0 % 08/14/2024 9:51 PM [facility] NRBC Absolute <0.01 <0.01 x10(3)/mc L 08/14/2024 9:51 PM [facility] Neutrophil % 57.7 % 08/14/2024 9:51 PM [facility] Neutrophil Absolute (ANC) - Automated 5.50 1.70 - 6.10 x10(3)/mc L 08/14/2024 9:51 PM [facility] Lymph % 28.7 % 08/14/2024 9:51 PM [facility] Lymph Absolute 2.73 0.90 - 3.20 x10(3)/mc L 08/14/2024 9:51 PM [facility] Monocyte % 8.5 % 08/14/2024 9:51 PM [facility] Monocyte Absolute 0.81 0.30 - 0.90 x10(3)/mc L 08/14/2024 9:51 PM [facility] Eos % 3.4 % 08/14/2024 9:51 PM [facility] Eos Absolute 0.32 0.00 - 0.40 x10(3)/mc L 08/14/2024 9:51 PM [facility] Basophil % 1.2 % 08/14/2024 9:51 PM [facility] Baso Absolute 0.11(H) 0.00 - 0.10 x10(3)/mc L 08/14/2024 9:51 PM EST [facility] Immature Gran % 0.5 % 9:51 PM EST [facility] Immature Gran Absolute 0.05(H) 0.00 - 0.04 x10(3)/mc L 08/14/2024 9:51 PM EST [facility] Blood VENOUS BLOOD SPECIMEN / Unknown Venipuncture / Unknown 08/14/2024 9:40 PM EST 08/14/2024 9:45 PM EST Octaviano Quiñones MD HEMATOLOGY ORDERABLE S [facility] [place] [address] * (ABNORMAL) Troponin - Single (08/14/2024 9:40 PM EST) Troponin-T, High Sensitivity 28(H) <=22 ng/L 08/14/2024 10:14 PM EST [facility] Comment: This [...] value can be found in the [facility] Laboratory Test Catalog Troponin - https://[email or web address].org/catalogs/565/files/[email or web address] Reference: Fourth Bayard Definition of Myocardial Infarction. Journal of the [place] [employer] 2018;72:8460-0019 Blood VENOUS BLOOD SPECIMEN / Unknown Venipuncture / Unknown 08/14/2024 9:40 PM EST 08/14/2024 9:45 PM EST Octaviano Quiñones MD [place] [address] documented in this encounter Visit Diagnoses Diagnosis Elevated troponin- Primary Other abnormal blood chemistry Elevated troponin Other abnormal blood chemistry Chest pain, unspecified type NSTEMI (non-ST elevated myocardial infarction) Acute myocardial infarction, subendocardial infarction, episode of care unspecified documented in this encounter Admitting Diagnoses Diagnosis Elevated troponin Other abnormal blood chemistry NSTEMI (non-ST elevated myocardial infarction) Acute myocardial infarction, subendocardial infarction, episode of care unspecified documented in this encounter Administered Medications Inactive Administered Medications - up to 3 most recent administrations Medication Order MAR Action Action Date Dose Rate Site acetaminophen (Tylenol) tablet 650 mg 650 mg, Oral, EVERY 6 HOURS PRN, Starting on 08/14/24 at 2115, Until 08/16/24 at 1648, Pain, Headaches, Fever, Other, pain 1 to 3, temp > 100.4 degrees Fahrenheit, headache, Maximum dose of acetaminophen is 4,000 mg from all sources in 24 hours., Routine aspirin chewable tablet 81 mg 81 mg, Oral, DAILY, First dose on 08/14/24 at 2145, Until Discontinued, Routine Given 08/16/2024 8:27 AM EST 81 mg Given 08/14/2024 10:18 PM EST 81 mg atorvastatin (Lipitor) tablet 80 mg 80 mg, Oral, EVERY EVENING, First dose on 08/14/24 at 2130, Until Discontinued, STAT Given 08/15/2024 5:33 PM EST 80 mg Given 08/14/2024 10:18 PM EST 80 mg carvediloL (Coreg) tablet 12.5 mg 12.5 mg, Oral, 2 TIMES DAILY, First dose on 08/14/24 at 2230, Until Discontinued, Routine Given 08/15/2024 8:50 AM EST 12.5 mg Given 08/14/2024 10:20 PM EST 12.5 mg clopidogreL (Plavix) tablet 75 mg 75 mg, Oral, DAILY, First dose on 08/15/24 at 0900, Until Discontinued, Routine Given 08/16/2024 8:27 AM EST 75 mg Given 08/15/2024 8:50 AM EST 75 mg dextrose 50% intravenous solution 25 g 25 g, Intravenous, EVERY 15 MIN PRN, Starting on 08/14/24 at 2117, Until 08/16/24 at 1648, Low blood sugar, ??Oral treatment preferred For [...] mg 25 mg, Oral, DAILY, First dose (after last modification) on 08/15/24 at 1230, Until Discontinued, This medication should not be [...] HFrEF) with or without diabetes? No Given 08/16/2024 8:27 AM EST 25 mg Given 08/15/2024 12:44 PM EST 25 mg escitalopram (Lexapro) tablet 20 mg 20 mg, Oral, DAILY, First dose on 08/15/24 at 0900, Until Discontinued, Routine Given 08/16/2024 8:27 AM EST 20 mg Given 08/15/2024 8:50 AM EST 20 mg glucagon (Glucagen) (1 mg/mL) injection solution 1 mg 1 mg, Intramuscular, EVERY 15 MIN PRN, Starting on 08/14/24 at 2117, Until 08/16/24 at 1648, Low blood sugar, ??Oral treatment preferred For [...] Buccal, EVERY 15 MIN PRN, Starting on 08/14/24 at 2117, Until 08/16/24 at 1648, Low blood sugar, ??Oral treatment preferred For [...] weight of tube = 37.5 grams.), Routine heparin (porcine) 50 units/mL in dextrose 5% 500 mL infusion 0-5,000 Units/hr (0-100 mL/hr), Intravenous, CONTINUOUS, Starting on 08/14/24 at 2145, Until 08/16/24 at 0729, Begin infusion at 1,000 units per hr (12 units/kg/hr). Maximum initial infusion rate is 1,000 units/hr. Infusion doses are rounded to the nearest 50 units. Target Heparin UFH Level (anti-Xa activity) = 0.3 - 0.7 international unit/mL Start adjustment schedule 6 hours after starting infusion. If Heparin UFH Level is: - Less than 0.1 international unit/mL: Administer PRN bolus and increase rate by 350 units per hr (4 units/kg/hr) - 0.1 [...] Heparin UFH Level - Per Protocol, Routine New Bag 08/15/2024 8:14 PM EST 1,300 Units/hr 26 mL/hr Rate/Dose Change 08/15/2024 1:02 PM EST 1,300 Units/hr 26 mL/hr Rate/Dose Change 08/15/2024 5:24 AM EST 1,100 Units/hr 22 mL/hr insulin glargine-ygfn (Semglee) (100 unit/mL) subcutaneous injection vial 10 Units 10 Units, Subcutaneous, DAILY, First dose on Fri08/16/24 at 0900, Until Discontinued, Routine Given 08/16/2024 8:30 AM EST 10 Units insulin lispro (HumaLOG;Admelog) (100 unit/mL) subcutaneous injection vial 0-8 Units 0-8 Units, Subcutaneous, 3 TIMES DAILY WITH MEALS, First dose on Fri08/15/24 at 1200, Until Discontinued, MEAL ASSOCIATED Give 1 unit for every 10 grams carbohydrate. Hold if not eating or if BG less than 70 mg/dL. , Routine Given 08/16/2024 12:27 PM EST 3 Units Given 08/15/2024 5:34 PM EST 3 Units Given 08/15/2024 12:50 PM EST 3 Units insulin lispro (HumaLOG;Admelog) (100 unit/mL) subcutaneous injection vial 1-4 Units 1-4 Units, Subcutaneous, 3 TIMES DAILY BEFORE MEALS, First dose on Fri08/15/24 at 1130, Until Discontinued, CORRECTION BOLUS [1-4 Units] Sensitive Sliding Scale (BG in mg/dL): Correction factor 40 (1 unit of insulin is expected to drop the glucose 40 mg/dL) ?? BG 160 - 200 Give 1 unit BG 201 - 240 Give 2 units BG 241 - 280 Give 3 units and recheck BG in 2 hours. BG greater than 280, give 4 units and recheck BG in 2 hours. - If recheck BG is LESS than 280, give no insulin and resume schedule - If recheck BG is GREATER than or EQUAL to 280, give 4 units and repeat BG in 2 hours & call for new insulin orders. DO NOT hold if NPO, unless specifically told to do so. ?? Per Inpatient Subcutaneous Insulin Policy, recheck a BG of greater than 240 mg/dL in 2 hours., Routine Given 08/16/2024 12:26 PM EST 3 Units Given 08/16/2024 8:31 AM EST 1 Units Given 08/15/2024 12:49 PM EST 2 Units insulin lispro (HumaLOG;Admelog) (100 unit/mL) subcutaneous injection vial 1-6 Units 1-6 Units, Subcutaneous, 3 TIMES DAILY BEFORE MEALS, First dose on 08/15/24 at 0730, Until Discontinued, CORRECTION BOLUS [1-6 [...] 240 mg/dL in 2 hours., Routine Given 08/15/2024 8:54 AM EST 3 Units lidocaine (Xylocaine) 1% (10 mg/mL) injection 3 mg 3 mg (0.3 mL), Subcutaneous, ONCE PRN, 1 dose, Starting on 08/14/24 at 2114, Until 08/16/24 at 1648, for discomfort with PIV insertion, Routine metoprolol succinate XL (Toprol-XL) tablet 50 mg 50 mg, Oral, DAILY, First dose on 08/16/24 at 0900, Until Discontinued, DO NOT CRUSH OR OPEN, Routine Given 08/16/2024 8:26 AM EST 50 mg nitroGLYcerin (Nitrostat) disintegrating tablet 0.4 mg 0.4 mg, Sublingual, EVERY 5 MIN PRN, Starting on 08/14/24 at 2114, Until 08/16/24 at 1648, Chest pain, May repeat every 5 minutes for a total of three doses. Notify provider if chest pain not relieved with nitroGLYcerin. Do not administer nitroGLYcerin if the patient has received or taken phosphodiesterase (PDE-5) inhibitors such as sildenafiL, tadalafiL or vardenafiL within the last 24 to 72 hours., Routine perflutren lipid microspheres (Definity) injection 0.5 mL 0.5 mL, Intravenous, ONCE PRN, 1 dose, Starting on 08/15/24 at 1257, Until 08/15/24 at 1230, Other, for enhancement of sub-optimal echo images, Echo Lab (Intra-Procedure), Routine Given 08/15/2024 12:30 PM EST 0.75 mLs sacubitriL-valsartan (Entresto) 49-51 mg per tablet 1 tablet 1 tablet, Oral, 2 TIMES DAILY, First dose on 08/14/24 at 2230, Until Discontinued, Routine, Is this a continuation of home medication? Yes Given 08/16/2024 8:26 AM EST 1 table t Given 08/15/2024 8:14 PM EST 1 tablet Given 08/15/2024 8:51 AM EST 1 tablet sodium chloride 0.9 % (flush) (BD PosiFlush Normal Saline 0.9) flush 5 mL 5 mL, Intravenous, 2 TIMES DAILY, First dose on 08/14/24 at 2145, Until Discontinued, Routine Given 08/16/2024 8:34 AM EST 5 mLs Given 08/15/2024 8:11 PM EST 5 mLs Given 08/15/2024 8:52 AM EST 5 mLs sodium chloride 0.9 % (flush) (BD PosiFlush Normal Saline 0.9) flush 5-20 mL 5-20 mL, Intravenous, EVERY 1 MIN PRN, Starting on 08/14/24 at 2114, Until 08/16/24 at 1648, flush, Flush pertains to all indwelling lines. Flush per protocol found in the job aid using the link provided on this medication record., Routine documented in this encounter Active and Recently Administered Medications Times are shown in EST. Scheduled Medication Order 08/14/2024 08/15/2024 08/16/2024 aspirin chewable tablet 81 mg 81 mg, Oral, DAILY, First dose on 08/14/24 at 2145, Until Discontinued, Routine 2218 (Given - Provider: Nadia Locke RN) 0827 (Given - Provider: Mary Lou Lane RN) atorvastatin (Lipitor) tablet 80 mg 80 mg, Oral, EVERY EVENING, First dose on 08/14/24 at 2130, Until Discontinued, STAT 2218 (Given - Provider: Nadia Locke RN) 1733 (Given - Provider: Mary Lou Lane RN) carvediloL (Coreg) tablet 12.5 mg (CANCELED) 12.5 mg, Oral, 2 TIMES DAILY, First dose on 08/14/24 at 2230, Until Discontinued, Routine 2220 (Given - Provider: Nadia Locke RN) 0850 (Given - Provider: Mary Lou Lane RN) clopidogreL (Plavix) tablet 75 mg 75 mg, Oral, DAILY, First dose on 08/15/24 at 0900, Until Discontinued, Routine 0850 (Given - Provider: Mary Lou Lane RN) 0827 (Given - Provider: Mary Lou Lane RN) empagliflozin (Jardiance) tablet 25 mg 25 mg, Oral, DAILY, First dose (after last modification) on 08/15/24 at 1230, Until Discontinued, This medication should not be [...] or HFrEF) with or without diabetes? No 1244 (Given - Provider: Mary Lou Lane RN) 0827 (Given - Provider: Mary Lou Lane RN) escitalopram (Lexapro) tablet 20 mg 20 mg, Oral, DAILY, First dose on 08/15/24 at 0900, Until Discontinued, Routine 0850 (Given - Provider: Mary Lou Lane RN) 0827 (Given - Provider: Mary Lou Lane RN) insulin glargine-ygfn (Semglee) (100 unit/mL) subcutaneous injection vial 10 Units 10 Units, Subcutaneous, DAILY, First dose on Fri08/16/24 at 0900, Until Discontinued, Routine 0830 (Given - Provider: Mary Lou Lane RN) insulin lispro (HumaLOG;Admelog) (100 unit/mL) subcutaneous injection vial 0-8 Units 0-8 Units, Subcutaneous, 3 TIMES DAILY WITH MEALS, First dose on Fri08/15/24 at 1200, Until Discontinued, MEAL ASSOCIATED Give 1 unit for every 10 grams carbohydrate. Hold if not eating or if BG less than 70 mg/dL. , Routine 1250 (Given - Provider: Mary Lou Lane RN)1734 (Given - Provider: Mary Lou Lane RN) 0800 (Not Given - Provider: Mary Lou Lane RN - Reason: Patient/family refused)1227 (Given - Provider: Mary Lou Lane RN) insulin lispro (HumaLOG;Admelog) (100 unit/mL) subcutaneous injection vial 1-4 Units(Linked Group 1) 1-4 Units, Subcutaneous, 3 TIMES DAILY BEFORE MEALS, First dose on 08/15/24 at 1130, Until Discontinued, CORRECTION BOLUS [1-4 Units] Sensitive Sliding Scale (BG in mg/dL): Correction factor 40 (1 unit of insulin is expected to drop the glucose 40 mg/dL) ?? BG 160 - 200 Give 1 unit BG 201 - 240 Give 2 units BG 241 - 280 Give 3 units and recheck BG in 2 hours. BG greater than 280, give 4 units and recheck BG in 2 hours. - If recheck BG is LESS than 280, give no insulin and resume schedule - If recheck BG is GREATER than or EQUAL to 280, give 4 units and repeat BG in 2 hours & call for new insulin orders. DO NOT hold if NPO, unless specifically told to do so. ?? Per Inpatient Subcutaneous Insulin Policy, recheck a BG of greater than 240 mg/dL in 2 hours., Routine 1249 (Given - Provider: Mary Lou Lane RN - Comment: bg 205)1630 (Not Given - Provider: Mary Lou Lane RN - Reason: Order parameters not met - Comment: BG 151) 0831 (Given - Provider: Mary Lou Lane RN)1226 (Given - Provider: Mary Lou Lane RN - Comment: BG 263) insulin lispro (HumaLOG;Admelog) (100 unit/mL) subcutaneous injection vial 1-6 Units (CANCELED)(Linked Group 2) 1-6 Units, Subcutaneous, 3 TIMES DAILY BEFORE MEALS, First dose on Fri08/15/24 at 0730, Until Discontinued, CORRECTION BOLUS [1-6 [...] than 240 mg/dL in 2 hours., Routine 0854 (Given - Provider: Mary Lou Lane RN - Comment: BG 191) metoprolol succinate XL (Toprol-XL) tablet 50 mg 50 mg, Oral, DAILY, First dose on Fri08/16/24 at 0900, Until Discontinued, DO NOT CRUSH OR OPEN, Routine 0826 (Given - Provider: Mary Lou Lane RN) sacubitriL-valsartan (Entresto) 49-51 mg per tablet 1 tablet 1 tablet, Oral, 2 TIMES DAILY, First dose on Fri08/14/24 at 2230, Until Discontinued, Routine, Is this a continuation of home medication? Yes 2219 (Given - Provider: Nadia Locke RN) 08 (Given - Provider: Mary Lou Lane RN - Comment: BG 116/74)2013 (Given - Provider: Nadia Locke RN) 08 (Given - Provider: Mary Lou Lane RN) sodium chloride 0.9 % (flush) (BD PosiFlush Normal Saline 0.9) flush 5 mL 5 mL, Intravenous, 2 TIMES DAILY, First dose on 08/14/24 at 2145, Until Discontinued, Routine 2218 (Given - Provider: Nadia Locke RN) 0852 (Given - Provider: Mary Lou Lane, JAMIE)2010 (Given - Provider: Nadia Locke RN) 0834 (Given - Provider: Mary Lou Lane, JAMIE) Continuous Medication Order 08/14/2024 08/15/2024 08/16/2024 heparin (porcine) 50 units/mL in dextrose 5% 500 mL infusion (CANCELED)(Linked Group 3) 0-5,000 Units/hr (0-100 mL/hr), Intravenous, CONTINUOUS, Starting on 08/14/24 at 2145, Until 08/16/24 at 0729, Begin infusion at 1,000 units per hr (12 units/kg/hr). Maximum initial infusion rate is 1,000 units/hr. Infusion doses are rounded to the nearest 50 units. Target Heparin UFH Level (anti-Xa activity) = 0.3 - 0.7 international unit/mL Start adjustment schedule 6 hours after starting infusion. If Heparin UFH Level is: - Less than 0.1 international unit/mL: Administer PRN bolus and increase rate by 350 units per hr (4 units/kg/hr) - 0.1 [...] Heparin UFH Level - Per Protocol, Routine 1944 (Continued Bag - Provider: Nadia Locke RN - Comment: per MD continue rate that pt was recieving at OSH)2199 (New Bag - Provider: Nadia Locke RN)2214 (Paused - Provider: Nadia Locke RN)232 (Rate/Dose Change - Provider: Nadia Locke RN) 0524 (Rate/Dose Change - Provider: Nadia Locke RN)130 (Rate/Dose Change - Provider: Mary Lou Lane RN - Comment: UFH 0.29, increased by 200 units/hr)2013 (New Bag - Provider: Nadia Locke RN) 0811 (Stopped - Provider: Mary Lou Lane RN) PRN Medication Order 08/14/2024 08/15/2024 08/16/2024 acetaminophen (Tylenol) tablet 650 mg 650 mg, Oral, EVERY 6 HOURS PRN, Starting on 08/14/24 at 2115, Until 08/16/24 at 1648, Pain, Headaches, Fever, Other, pain 1 to 3, temp > 100.4 degrees Fahrenheit, headache, Maximum dose of acetaminophen is 4,000 mg from all sources in 24 hours., Routine dextrose 50% intravenous solution 25 g(Linked Group 4) 25 g, Intravenous, EVERY 15 MIN PRN, Starting on 08/14/24 at 2117, Until 08/16/24 at 1648, Low blood sugar, ??Oral treatment preferred For [...] (1 mg/mL) injection solution 1 mg(Linked Group 4) 1 mg, Intramuscular, EVERY 15 MIN PRN, Starting on 08/14/24 at 2117, Until 08/16/24 at 1648, Low blood sugar, ??Oral treatment preferred For [...] Routine glucose (Glutose) 40% oral geL(Linked Group 4) 15-30 g of glucose, Buccal, EVERY 15 MIN PRN, Starting on 08/14/24 at 2117, Until 08/16/24 at 1648, Low blood sugar, ??Oral treatment preferred For [...] weight of tube = 37.5 grams.), Routine lidocaine (Xylocaine) 1% (10 mg/mL) injection 3 mg 3 mg (0.3 mL), Subcutaneous, ONCE PRN, 1 dose, Starting on 08/14/24 at 2114, Until 08/16/24 at 1648, for discomfort with PIV insertion, Routine nitroGLYcerin (Nitrostat) disintegrating tablet 0.4 mg 0.4 mg, Sublingual, EVERY 5 MIN PRN, Starting on 08/14/24 at 2114, Until 08/16/24 at 1648, Chest pain, May repeat every 5 minutes for a total of three doses. Notify provider if chest pain not relieved with nitroGLYcerin. Do not administer nitroGLYcerin if the patient has received or taken phosphodiesterase (PDE-5) inhibitors such as sildenafiL, tadalafiL or vardenafiL within the last 24 to 72 hours., Routine perflutren lipid microspheres (Definity) injection 0.5 mL (COMPLETED) 0.5 mL, Intravenous, ONCE PRN, 1 dose, Starting on 08/15/24 at 1257, Until 08/15/24 at 1230, Other, for enhancement of sub-optimal echo images, Echo Lab (Intra-Procedure), Routine 1230 (Given - Provider: Sandra Worthy) sodium chloride 0.9 % (flush) (BD PosiFlush Normal Saline 0.9) flush 5-20 mL 5-20 mL, Intravenous, EVERY 1 MIN PRN, Starting on 08/14/24 at 2114, Until 08/16/24 at 1648, flush, Flush pertains to all indwelling lines. Flush per protocol found in the job aid using the link provided on this medication record., Routine Linked Groups Order Group 1: POCT Fingerstick Glucose (CANCELED) Routine, 4 TIMES DAILY BEFORE MEALS & AT BEDTIME, First occurrence on 08/15/24 at 1100, Until Specified, Consider choosing FOUR TIMES A DAY BEFORE MEALS AND AT BEDTIME as frequency for: Patients who have good hypoglycemia awareness: -Patients who are eating meals during the day and sleeping at night -Patients who are otherwise stable And insulin lispro (HumaLOG;Admelog) (100 unit/mL) subcutaneous injection vial 1-4 UnitsJump to med 1-4 Units, Subcutaneous, 3 TIMES DAILY BEFORE MEALS, First dose on 08/15/24 at 1130, Until Discontinued, CORRECTION BOLUS [1-4 Units] Sensitive Sliding Scale (BG in mg/dL): Correction factor 40 (1 unit of insulin is expected to drop the glucose 40 mg/dL) ?? BG 160 - 200 Give 1 unit BG 201 - 240 Give 2 units BG 241 - 280 Give 3 units and recheck BG in 2 hours. BG greater than 280, give 4 units and recheck BG in 2 hours. - If recheck BG is LESS than 280, give no insulin and resume schedule - If recheck BG is GREATER than or EQUAL to 280, give 4 units and repeat BG in 2 hours & call for new insulin orders. DO NOT hold if NPO, unless specifically told to do so. ?? Per Inpatient Subcutaneous Insulin Policy, recheck a BG of greater than 240 mg/dL in 2 hours., Routine Group 2: POCT Fingerstick Glucose (CANCELED) Routine, 4 TIMES DAILY BEFORE MEALS & AT BEDTIME, First occurrence on 08/14/24 at 2200, Until Specified, Consider choosing FOUR TIMES A DAY BEFORE MEALS AND AT BEDTIME as frequency for: Patients who have a good hypoglycemia awareness: -Patients who are eating meals during the day and sleeping at night -Patients who are otherwise stable And insulin lispro (HumaLOG;Admelog) (100 unit/mL) subcutaneous injection vial 1-6 Units (CANCELED)Jump to med 1-6 Units, Subcutaneous, 3 TIMES DAILY BEFORE MEALS, First dose on 08/15/24 at 0730, Until Discontinued, CORRECTION BOLUS [1-6 [...] than 240 mg/dL in 2 hours., Routine Group 3: heparin (porcine) 50 units/mL in dextrose 5% 500 mL infusion (CANCELED)Jump to med 0-5,000 Units/hr (0-100 mL/hr), Intravenous, CONTINUOUS, Starting on 08/14/24 at 2145, Until 08/16/24 at 0729, Begin infusion at 1,000 units per hr (12 units/kg/hr). Maximum initial infusion rate is 1,000 units/hr. Infusion doses are rounded to the nearest 50 units. Target Heparin UFH Level (anti-Xa activity) = 0.3 - 0.7 international unit/mL Start adjustment schedule 6 hours after starting infusion. If Heparin UFH Level is: - Less than 0.1 international unit/mL: Administer PRN bolus and increase rate by 350 units per hr (4 units/kg/hr) - 0.1 [...] Heparin UFH Level - Per Protocol, Routine And heparin (porcine) (1,000 units/mL) injection 0-4,000 Units (CANCELED) 0-4,000 Units, Intravenous, BOLUS PER HEPARIN PROTOCOL, Starting on 08/14/24 at 2116, Until Fri08/16/24 at 0729, Per Protocol, START ADJUSTMENT SCHEDULE 6 HOURS [...] than 0.2 international unit/mL: No Bolus, Routine Group 4: glucose (Glutose) 40% oral geLJump to med 15-30 g of glucose, Buccal, EVERY 15 MIN PRN, Starting on 08/14/24 at 2117, Until 08/16/24 at 1648, Low blood sugar, ??Oral treatment preferred For [...] Intravenous, EVERY 15 MIN PRN, Starting on 08/14/24 at 2117, Until 08/16/24 at 1648, Low blood sugar, ??Oral treatment preferred For [...] Intramuscular, EVERY 15 MIN PRN, Starting on 08/14/24 at 2117, Until Fri08/16/24 at 1648, Low blood sugar, ??Oral treatment preferred For [...] orders before administering the next dose., Routine documented in this encounter Care Teams Label Tacker Relationship Specialty Start Date End Date Mauro Berumen MD [address] [place] [address] PCP - General Family Medicine 06/02/24 documented as of this encounter
--- OUTSIDE RECORDS SUMMARY | 2024-08-18 10:20 | XMS_ITS | Encounter Summary ---
Author Organization [facility] Address [facility] [place] [address] Care Team Providers Care Coal Getter Name Role Phone Mauro Berumen MD Primary Care Provider [phone] Encounter Details Date Type Department Care Team (Late st Contact Info) Description 08/13/2024 Telephone Cardiology at [address] [place] [id number] Katy Maurer APRN [facility] [place] [address] [place] [address] Social History Tobacco Use Types Packs/Day Years Used Date Smoking Tobacco: Every Day Cigarettes Smokeless Tobacco: Never [facility] Utilities Answer Date Recorded In [...] Notes * Telephone Encounter - Katy Maurer, VENDER - 08/13/2024 2:52 PM EST Images from the original note were not included. 08/13/2024 Arturo Mehta Initial Contact Date: 08/13/2024 Initial contact time: 2:52 PM Referring Provider: Dr. Marcelo Manning Patient Location: [facility] ED Past Medical History: CAD (s/p PCI x 3 ; 3vCABG 06/2024 in setting of STEMI) ICM/HFrEF (LVEF 30% ; s/p VIRTUAL RECRUITER/ICD) T2DM HTN HLD Presenting Symptoms per OSH: Patient presented to [facility] ED from cardiac rehabilitation as a participant [...] 3.5 guiding catheter and a 3.5 Fr [place] 20 Mhz using Manual pullback. Imaging was [...] 3.5 guiding catheter and a 3.5 Fr [place] 20 Mhz using Manual pullback. Imaging was [...] 80 mg Plavix Plan: Patient presented to [facility] ED from cardiac rehabilitation with pre-syncopal symptoms [...] thrombosis cannot be excluded.Additionally, he has known VIRTUAL RECRUITER/ICD. It is unclear if arrhythmia is culprit for pre-syncopal episode. [facility] will attempt to obtain TTE to evaluate EF and new WMAs if TTE available. I have advised for gentle IV NSS bolus with 250mL fluid in the setting of hypotension and creatinine 1.5 with pre-syncopal symptoms. I have encouraged to hold 20 mg daily Lasix as there is no evidence of fluid overload onexamination. [place] [facility] [place]urg level of care accepting for [...] 2:00 PM EST Office Visit Cardiology at [address] [phone] Moi Falcon MD [facility] [place] [address] documented as of this encounter Visit Diagnoses Not on filedocumented in this encounter Care Teams Coal Getter Relationship Specialty Start Date End Date Mauro Berumen MD [address] [place] [address] PCP - General Family Medicine 06/02/24 documented as of this encounter
--- OUTSIDE RECORDS SUMMARY | 2024-08-18 10:22 | XMS_ITS | Encounter Summary ---
Author Organization [facility] Address [facility] [place] [address] Care Team Providers Care Technical Writing Lead/Mgr Name Role Phone Mauro Berumen MD Primary Care Provider [phone] Reason for Referral * Consultation (Routine) - Authorized Specialty Diagnoses / Procedures Referred By Contac t Referred To Contact Cardiology Diagnoses S/P CABG x 3 Bobby Loja MD [facility] [place] [address] Cardiac Rehab, [address] [place] [address] Referral ID Status Reason Start Date Expiration Date Visits Requested Visits Authorized [id number] Authorized Consult, Test & Treat 06/21/2024 12/18/2024 36 36 * Home Health Care (Routine) - Authorized Specialty Diagnoses / Procedures Referred By Contac t Referred To Contact Diagnoses S/P CABG x 3 Bobby Loja MD [facility] [address] Referral ID Status Reason Start Date Expiration Date Visits Requested Visits Authorized [id number] Authorized Consult, Test & Treat 06/21/2024 12/18/2024 999 999 Reason for Visit * Auth/Cert Specialty Diagnoses / Procedures Referred By Contac t Referred To Contact Diagnoses STEMI (ST elevation myocardial infarction) STEMI Procedures CARDIAC CATHETERIZATION EMERGENCY Delroy Monterroso MD [facility] [place] [address] [facility] Referral ID Status Reason Start Date Expiration Date Visits Re quested Visits Authorized [id number] 1 1 Encounter Details Date Type Department Care Team (Late st Contact Info) Description 06/02/2024 11:09 PM EDT - 06/21/2024 1:07 PM EST Hospital Encounter Heart and Vascular Unit Level 4 [place] [address] Nuha Shen MD [facility] [place] [address] Delroy Fofana MD [facility] [place] [address] Melida Valdes MD [facility] [place] [address] Ethel Carrillo MD [facility] [place] [address] Haja Byrnes MD [facility] [place] [address] Bobby Loja MD [facility] [address] ST elevation myocardial infarction (STEMI), unspecified artery; Coronary artery disease involving te-moak coronary artery of te-moak heart without angina pectoris; S/P CABG x 3 Discharge Disposition: Home with VNA Social History Tobacco Use Types Packs/Day Years Used Date Smoking Tobacco: Every Day Cigarettes Smokeless Tobacco: Never Tobacco Cessation:Ready to Q uit: No; Counseling Given: Yes C Utilities Answer Date Recorded In the past 12 months has [employer], [employer], oil, or water [employer] threatened to shut off services in your [...] any time in the past 12 m [facility], were you homeless or living [...] this encounter Discharge Summaries * Keila Hanley, PATTERN AND CHAIN MAKER - 06/21/2024 8:31 AM EST Inpatient - Discharge Summary Patient Name: George Mehta Patient Age: 69 y.o. Birthdate: 1955 Language: Cape Verdean Race: Choose not to Disclose Ethnicity: Not nor Admit Date: 06/02/2024 Discharge Date: 06/21/2024 Attending Physician: Bobby Loja MD Follow-up Recommendations for Providers: Please continue routine management of cardiovascular risk factors including blood pressure, lipids,glucose, etc. Please note any changes to medications. Patient to follow up with PCP, Mauro Berumen MD, in 1-2 weeks. Patient to follow up with Embossed Or Impressed Lettering Painter, Kristen Cardenas in 2-3 weeks. Patient to follow up with Cardiac Surgeon, Dr. Bobby Loja, in 4 wks. Inpatient Provider Contact Information: [facility] Section of Cardiac Surgery [facility] [address] FAX [phone] Discharge Diagnoses (Hospital Problems) Primary Diagnoses: STEMI [...] (WRVU 33.75) performed by Bobby Loja MD [facility] OR PRO CABG, ARTERY-VEIN, TWO N/A 06/14/2024 @CABG, TWO VENOUS GRAFTS & ARTERIAL GRAFT (WRVU 7.93) performed by Bobby Loja MD at [facility] OR PRO ENDOSCOPY W/VIDEO-ASST VEIN HARVEST, CABG N/A 06/14/2024 ENDOSCOPIC HARVEST VEIN(S) FOR CABG (WRVU 0.31) performed by Bobby Loja MD at [facility] MAIN OR PRO EXC MEDIASTINAL TUMOR N/A 06/14/2024 @EXCISION OF MEDIASTINAL TUMOR (WRVU 19.55) performed by Bobby Loja MD at [facility] OR PRO INSERT INTRA-AORTIC BALLOON ASST DEVICE PERCUTANEOUS N/A 06/13/2024 @INSERTION OF IABP,PERCUTANEOUS (WRVU 4.84) performed by Nuha Shen MD at [facility] CATH LABS PRO UNLISTED CARDIAC SURG PROCEDURE N/A 06/14/2024 EXPLORATION AND OVERSEW ATRIAL APPENDAGE (WRVU 5.94) performed by Bobby Loja MD at [facility] [place] Prior To Admission Medications Medications [...] y.o. male with a PMHx of previous LA s/p PCI x3, ICM/HFrEF (LVEF 30%) s/p ICD, DMII, HTN, HLD, remote melanoma, and smoker who presented to [facility] last night via EMS after developing acute, severe chest pain while watching TV. Patient was ruled in for STEMI, given TNK, ASA, plavix, heparin gtt, and sent to [facility] for coronary angiography. LHC demonstrated severely calcified left coronary system with notable LCx 75/80% lesions and ORTHODONTIC TECHNICIAN OM1 with ISR with collateral retrograde [...] Hospital Course: George Mehta was admitted to [facility] on 06[facility]02/2024 via the CardiologyService with an anterior STEMI after receiving lytics at OSH. He was brought to the greenhouse laborer which showed severely calcified left coronary system with notable LCx 75/80% lesions and ORTHODONTIC TECHNICIAN OM1 with ISR with collateral retrograde [...] 2 tablespoons of dried fruit. Milk and sk-tieio-rygdf yogurt have 15 grams of carbs in a serving. A serving is 1 cup of milk or 3/4 cup (6 oz) of ek-mfghc-hmrwp yogurt. Starchy vegetables have 15 grams of carbs in a serving. A serving is ?? cup of mashed potatoes or sweet potato; 1 cup winter squash; ?? of a small baked potato; ?? cup of cooked beans; or ?? cup cooked corn or green peas. Learn how much carbs to eat each day and at each meal. A dietitian or certified fraud examiner can teach you how to keep track [...] Bobby Loja and/or the Cardiac Surgery Physician Bonding Equipment Operator Team may be reached at . [...] Dr. Bobby Loja. You may use a Maxeys Track or treadmill but avoid any pulling [...] friends, go to a movie, go to cheondoism, etc. Heavy activities: No hunting, skiing, jogging, [...] should resume a low fat, low cholesterol, [place] Heart [employer] Diet/Diabetic diet. Driving: No driving [...] while being managed by your PCP and/or Embossed Or Impressed Lettering Painter. For future medication refills, please refer to your PCP and/or Embossed Or Impressed Lettering Painter after your discharge from our service. Thank you REMOVE CHEST TUBE SUTURES ON OR AFTER 06/24/2024 Home oxygen therapy: N/A Follow up appointments: You should follow up with your PCP, Mauro Berumen MD, in 1-2 weeks. You should follow up with your Embossed Or Impressed Lettering Painter, Dr CARDENAS. You have an appointment with your Cardiac Surgeon, Dr. Bobby Loja, in 4 wks. Cardiac Rehabilitation: George Mehta was seen today regarding participation in the outpatient Phase 2 Cardiac Rehabilitation at [facility]. The patient agrees to a referral to this program. The referral will be sent at discharge and the patient should be contacted by the program within 1-2 weeks from discharge. Future Appointments and Orders Future Orders Complete By Expires Referral to Cardiac Rehab [NIR419 Custom] As directed Process Instructions: If no progress note charted, please enter Clinical details in comments. Scheduling Instructions: Questions: My question or request is: s/p CABG- cardiac rehab at [facility] Referral to Home Health [REF34 Custom] As directed Process Instructions: If no progress note charted, please enter Clinical details in comments. Scheduling Instructions: Comments: Please evaluate George Mehta for admission to Home Health. [address] [facility] [address] (home) Date of : 1955 Inpatient DOCUMENTATION FOR VNA SERVICES (INCLUDING THOSE PATIENTS WITH MEDICARE COVERAGE REQUIRINGHOME VNA SERVICES AND/OR HOSPICE SERVICES) PATIENT'S LOCATION: George Mehta [address] [facility] [address] (home) Telephone Information: Shank Rander's Name: self In discussion with the attending physician, it is certified that this patient is under their care and that they, or a Nurse Practitioner, or Physician Bonding Equipment Operator who is working directly with them, [...] for services as follows: HOME HEALTH AGENCY: [facility] [address] [address] RN orders: Cardiopulmonary assessment, incisional assessment, assess [...] issues please call the Cardiology Office at [phone] FOR MEDICARE ONLY: (please delete this section [...] care: As above. Signed: KEILA HANLEY APRN [facility] Section of Cardiac Surgery [facility] [address] FAX [phone] Date: 06/21/2024 CC: MD Antonino Tinajero Joshua R, PA [address] [place] [address] [place] [address] documented in this encounter Discharge Instructions * [...] 2 tablespoons of dried fruit. Milk and lv-uqpvh-jdfwg yogurt have 15 grams of carbs in a serving. A serving is 1 cup of milk or 3/4 cup (6 oz) of wz-pzmsq-ksvhp yogurt. Starchy vegetables have 15 grams of carbs in a serving. A serving is ?? cup of mashed potatoes or sweet potato; 1 cup winter squash; ?? of a small baked potato; ?? cup of cooked beans; or ?? cup cooked corn or green peas. Learn how much carbs to eat each day and at each meal. A dietitian or certified fraud examiner can teach you how to keep track [...] Bobby Loja and/or the Cardiac Surgery Physician Bonding Equipment Operator Team may be reached at . [...] Dr. Bobby Loja. You may use a Maxeys Track or treadmill but avoid any pulling [...] friends, go to a movie, go to cheondoism, etc. Heavy activities: No hunting, skiing, jogging, [...] should resume a low fat, low cholesterol, [place] Heart Association Diet/Diabetic diet. Driving: No driving [...] while being managed by your PCP and/or Embossed Or Impressed Lettering Painter. For future medication refills, please refer to your PCP and/or Embossed Or Impressed Lettering Painter after your discharge from our service. Thank you REMOVE CHEST TUBE SUTURES ON OR AFTER 06/24/2024 Home oxygen therapy: N/A Follow up appointments: You should follow up with your PCP, Mauro Berumen MD, in 1-2 weeks. You should follow up with your Embossed Or Impressed Lettering Painter, Dr CARDENAS. You have an appointment with your Cardiac Surgeon, Dr. Bobby Loja, in 4 wks. Cardiac Rehabilitation: George Mehta was seen today regarding participation in the outpatient Phase 2 Cardiac Rehabilitation at [facility]. The patient agrees to a referral to [...] tablet Take 25 mg by mouth daily. furosemide (Lasix) 20 mg tablet Take 1 tablet by mouth daily. 30 tablet 3 06/21/2024 08/16/2024 Insulin Tresiba FlexTouch U-100 100 unit/mL (3 mL) Insulin PenIndications:type 2 diabetes mellitus Inject 30 Units subcutaneously daily. Indications: type 2 diabetes mellitus 06/21/2024 08/16/2024 carvediloL (Coreg) 12.5 mg tablet Take 12.5 mg by mouth 2 times daily. 08/16/2024 insulin aspart U-100 (NovoLOG Flexpen U-100 Insulin) 100 unit/mL (3 mL) Insulin Pen Inject 20 Units subcutaneously 3 times daily (with meals). 08/16/2024 documented as of this encounter Progress Notes * Delio See RN - 06/21/2024 8:32 AM EST During VAS Purposeful Rounding, an assessment of your patient's venous access was [facility]. The following tasks [...] of your patient's venous access was [facility]. The following tasks [...] MARIALUISA clipping. PMH of chronic HFrEF s/p QUARTER SECTION IRONER/ICD, IDDM2, HTN, HLD, remote melanoma, active [...] 2 tablespoons of dried fruit. Milk and hw-nzvpb-gqccx yogurt have 15 grams of carbs in a serving. A serving is 1 cup of milk or 3/4 cup (6 oz) of cd-zssav-srfwm yogurt. Starchy vegetables have 15 grams of carbs in a serving. A serving is ?? cup of mashed potatoes or sweet potato; 1 cup winter squash; ?? of a small baked potato; ?? cup of cooked beans; or ?? cup cooked corn or green peas. Learn how much carbs to eat each day and at each meal. A dietitian or certified fraud examiner can teach you how to keep track [...] cheese, and peanut butter. Alejandra Baumann APRN [facility] Endocrinology Diabetes Management Pager [phone] Weekends please page [phone] * Eric Packer PA - 06/20/2024 7:44 AM EST Cardiac Surgery Progress Note George Mehta is a 69 y.o. male with a history of CAD s/p multiple PCI who presented with an anterior STEMI and was given lytics. Cath showed MV CAD without culprit vessel. He is now 6 Days Post-OpCABGx3 and MARIALUISA clipping. PMH of chronic HFrEF s/p QUARTER SECTION IRONER/ICD, IDDM2, HTN, HLD, remote melanoma, active [...] 89 Pt is followed by heart failure rolling chair pusher at [facility] #IDDM2 DM team following Lantus, SSI Carb controlled diet #Active smoker Duoneb prn Dispo: Floor, full code, home when ready Discussed with attending surgeon on rounds this morning. 06/20/2024 Between the hours of 1800 - 0600 and on the weekends please page [phone]. * Alejandra Baumann, PATTERN AND CHAIN MAKER - 06/20/2024 7:21 AM EST Follow Up Diabetes Consult Patient Interview Blood glucose values and insulin use reviewed. licensed psychiatric technician BG to 59 despite decrease in glargine [...] MARIALUISA clipping. PMH of chronic HFrEF s/p QUARTER SECTION IRONER/ICD, IDDM2, HTN, HLD, remote melanoma, active smoker. licensed psychiatric technician BG to 59 despite decrease in glargine [...] based on ISF 20 Alejandra Baumann APRN [facility] Endocrinology Diabetes Management Pager [phone] Weekends please page [phone] Insulin Discharge Instructions Preliminary Diabetes Discharge Instructions [...] 2 tablespoons of dried fruit. Milk and hp-kmtqi-fpdmd yogurt have 15 grams of carbs in a serving. A serving is 1 cup of milk or 3/4 cup (6 oz) of lw-nmoyn-mkuxa yogurt. Starchy vegetables have 15 grams of carbs in a serving. A serving is ?? cup of mashed potatoes or sweet potato; 1 cup winter squash; ?? of a small baked potato; ?? cup of cooked beans; or ?? cup cooked corn or green peas. Learn how much carbs to eat each day and at each meal. A dietitian or certified fraud examiner can teach you how to keep track [...] MARIALUISA clipping. PMH of chronic HFrEF s/p QUARTER SECTION IRONER/ICD, IDDM2, HTN, HLD, remote melanoma, active [...] 90 Pt is followed by heart failure rolling chair pusher at [facility] Tx to floor #IDDM2 DM team following pre-op Lantus, SSI Carb controlled diet #Active smoker Duoneb prn Dispo: Floor status, full code Discussed with attending surgeon on rounds this morning. Jeffy Hood MD 06/19/2024 Between the hours of 1800 - 0600 and on the weekends please page [phone]. * Alejandra Baumann, JOSÉ ANTONIO - 06/19/2024 7:09 AM EST Follow Up Diabetes Consult Patient Interview Blood glucose values and insulin use reviewed. Jardiance added back yesterday, gift consultant low BGto 51. Glargine reduced to 45 [...] MARIALUISA clipping. PMH of chronic HFrEF s/p QUARTER SECTION IRONER/ICD, IDDM2, HTN, HLD, remote melanoma, active smoker. Jardiance added back yesterday. licensed psychiatric technician low BG to 51. Glargine reduced to [...] 2 tablespoons of dried fruit. Milk and bh-ydioe-qyhat yogurt have 15 grams of carbs in a serving. A serving is 1 cup of milk or 3/4 cup (6 oz) of xt-ukdhc-zhdwv yogurt. Starchy vegetables have 15 grams of carbs in a serving. A serving is ?? cup of mashed potatoes or sweet potato; 1 cup winter squash; ?? of a small baked potato; ?? cup of cooked beans; or ?? cup cooked corn or green peas. Learn how much carbs to eat each day and at each meal. A dietitian or certified fraud examiner can teach you how to keep track [...] cheese, and peanut butter. Alejandra Baumann APRN [facility] Endocrinology Diabetes Management Pager [phone] Weekends please page [phone] Hilda Almazan PTA - 06/18/2024 9:19 AM EST Physical Therapy Note 2 Patient profile: George Mehta is a 69 y.o. male with a history of CAD s/p multiple PCI who presented with an anterior STEMI and was given lytics. Cath showed MV CAD without culprit vessel. He is now 1 Day Post-Op CABGx3 and MARIALUISA clipping. PMH of chronic HFrEF s/p QUARTER SECTION IRONER/ICD, IDDM2, HTN, HLD, remote melanoma, active smoker. Interval History: Per last cardiac surgery note on 06/18/2024 Cr improved 1.4 on lasix 40 iv bid -1.5L, made 2.5L urine Coreg, entresto restarted Floor status Social History: Pt lives with his in a 1 level apartment with no steps to enter. 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 He sleeps in a recliner at baseline. Precautions/Special Considerations: Sternal precautions, PIV, at risk to fall, PPM Mobility and Positioning Recommendations: Pt to utilize no AD, supervision for ambulation and transfers w/ staff nuclear medicine technologist as able. Please encourage up to chair [...] least restrictive device Time IN / OUT: 1835-4912 Total Time: 11 minutes; TEF 1 Hilda Resendez PTA Pager: [phone] Physical Therapy Inpatient Rehabilitation Department * Keila [...] MARIALUISA clipping. PMH of chronic HFrEF s/p QUARTER SECTION IRONER/ICD, IDDM2, HTN, HLD, remote melanoma, active [...] 90 Pt is followed by heart failure rolling chair pusher at [facility], will get name for f/up appt Tx to floor #IDDM2 DM team following pre-op Lantus, SSI Carb controlled diet ? Restarting jardiance #Active smoker Duoneb prn Dispo: CVCC, Full code, tx to floor Discussed with attending surgeon on rounds this morning. KEILA HANLEY APRN 06/18/2024 Between the hours of 1800 - 0600 and on the weekends please page [phone]. * Alejandra Baumann APRN - 06/17/2024 3:29 [...] MARIALUISA clipping. PMH of chronic HFrEF s/p QUARTER SECTION IRONER/ICD, IDDM2, HTN, HLD, remote melanoma, active [...] based on ISF 20 Alejandra Baumann APRN [facility] Endocrinology Diabetes Management Pager [phone] Weekends please page [phone] 35 minutes were spent over the course [...] MARIALUISA clipping. PMH of chronic HFrEF s/p QUARTER SECTION IRONER/ICD, IDDM2, HTN, HLD, remote melanoma, active [...] 0600 and on the weekends please page [phone]. * Raymond Carlton MD - 06/16/2024 1:11 PM EST CARDIAC CRITICAL CARE ATTENDING STAFF PROGRESS NOTE Patient seen and examined. George Mehta is a 69 y.o. male with: Active Hospital Problems Diagnosis STEMI (ST elevation myocardial infarction) Cardiac resynchronization therapy defibrillator (QUARTER SECTION IRONER-D) - Medtronic Amplia Cardiomyopathy, ischemic Acute on chronic heart failure with reduced ejection fraction (HFrEF, <= 40%) Coronary artery disease involving te-moak coronary artery of te-moak heart without angina pectoris Type 2 diabetes [...] provided Patient screened for f/u and mortgage or loan underwriter met pt at bedside. Pt states [...] unless consulted in the interim. RICHA Simmons Parking Enforcement Manager * Octaviano Horvath PA - 06/16/2024 8:07 AM EST Cardiac Surgery Progress Note George Mehta is a 69 y.o. male with a history of CAD s/p multiple PCI who presented with an anterior STEMI and was given lytics. Cath showed MV CAD without culprit vessel. He is now 2 Days Post-OpCABGx3 and MARIALUISA clipping. PMH of chronic HFrEF s/p QUARTER SECTION IRONER/ICD, IDDM2, HTN, HLD, remote melanoma, active [...] 0600 and on the weekends please page [phone]. * Jono Fernandez, PT - 06/15/2024 4:09 PM EST Physical Therapy Evaluation Patient profile: George Mehta is a 69 y.o. male with a history of CAD s/p multiple PCI who presented with an anterior STEMI and was given lytics. Cath showed MV CAD without culprit vessel. He is now 1 Day Post-Op CABGx3 and MARIALUISA clipping. PMH of chronic HFrEF s/p QUARTER SECTION IRONER/ICD, IDDM2, HTN, HLD, remote melanoma, active smoker. 24h Events: From OR on Dobutamine IABP removed Bedrest ended ~2100, sedation weaned Extubated ~0200 Dobutamine weaned to 1 this morning, CI 2.6, shut off and repeat CI 2.4 Social History: Pt lives with his in a 1 level apartment with no steps to enter. 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 He sleeps [...] outlined inthis evaluation. JONO FERNANDEZ, PT Pager: [phone] Physical Therapy Inpatient Rehabilitation Department Time IN / OUT: 5517-2229 Total Time: 33 (eval) minutes * Alejandra Baumann APRN - 06/15/2024 11:39 AM EST Follow Up Diabetes Consult Patient Interview Blood glucose values and insulin use reviewed. Pt remains on an insulin drip today following [id number] MARIALUISA clipping. George continues to complain of [...] MARIALUISA clipping. PMH of chronic HFrEF s/p QUARTER SECTION IRONER/ICD, IDDM2, HTN, HLD, remote melanoma, active [...] based on ISF 20 Alejandra Baumann APRN [facility] Endocrinology Diabetes Management Pager [phone] Weekends please page [phone] 50 minutes were spent over the course [...] elevation myocardial infarction) Cardiac resynchronization therapy defibrillator (QUARTER SECTION IRONER-D) - Medtronic Amplia Cardiomyopathy, ischemic Acute on chronic heart failure with reduced ejection fraction (HFrEF, <= 40%) Coronary artery disease involving te-moak coronary artery of te-moak heart without angina pectoris Type 2 diabetes [...] with h/o DM, CAD with prior PCI, QUARTER SECTION IRONER-D who presented with crushing chest pain, [...] Lytes Recent Labs 06/14/24 0012 06/13/24 0748 06/13/2422506/12/24 1419 06/12/24 0303 NA 135 -- 136 [...] MARIALUISA clipping. PMH of chronic HFrEF s/p QUARTER SECTION IRONER/ICD, IDDM2, HTN, HLD, remote melanoma, active [...] sternotomy dressing CDI, saphenectomy dressing CDi Tubes/Lines/Drains: Matlock, RIJ, A-line, Mediastinal marcos and bilateral pleural [...] 0600 and on the weekends please page [phone]. * Yoli Donaldson, INDUSTRIAL GAS SERVICE HELPER - 06/15/2024 5:35 AM EST AMV Protocol: [...] with h/o DM, CAD with prior PCI, QUARTER SECTION IRONER-D who presented with crushing chest pain, [...] with h/o DM, CAD with prior PCI, QUARTER SECTION IRONER-D who presented with crushing chest pain, [...] 0600 and on the weekends please page [phone]. * Chloé Cortez - 06/14/2024 9:36 AM [...] unless consulted in the interim. Chloé Cortez Prenatal Teacher * Jim Benites MD - 06/13/2024 1:15 [...] - Mildly dilated left ventricle size with btznaxdq-oy-ekoofgyo decreased LV systolic function. LV ejection fraction [...] ACS/crushing chest pain, likely due to lateral LA, found to have surgical CAD with viability [...] elevation myocardial infarction) Cardiac resynchronization therapy defibrillator (QUARTER SECTION IRONER-D) - Medtronic Amplia Cardiomyopathy, ischemic Acute on chronic heart failure with reduced ejection fraction (HFrEF, <= 40%) Coronary artery disease involving te-moak coronary artery of te-moak heart without angina pectoris Type 2 diabetes [...] PCP: Mauro Berumen MD PCP phone number: [phone] Date of Admission: 06/02/2024 ( Hospital Day 10 days ) Attending:Ethel Carrillo MD ID: 69 y.o. male with a h/o DM type 2, HTN, HLD, current smoker (2-3 cigarettes/day), HFrEF with anICD for low EF (~30%), and CAD with prior LA x3 with JENNA placed in [facility], presented to [facility] with 1 hour of retrosternal CP (05/13) while watching TV, found to have STEMI. Active Problems: Active Hospital Problems Diagnosis STEMI (ST elevation myocardial infarction) Cardiac resynchronization therapy defibrillator (QUARTER SECTION IRONER-D) - Medtronic Amplia Cardiomyopathy, ischemic Acute on chronic heart failure with reduced ejection fraction (HFrEF, <= 40%) Coronary artery disease involving te-moak coronary artery of te-moak heart without angina pectoris Type 2 diabetes [...] symptoms 06/03/24 040 Labs: Recent Labs 06/12/24 03006/11/2421206/10/24 0155 06/09/24 [...] in the last 7068 hours. Invalid input(s): [id number] Recent Labs 06/12/24 0425 06/11/24 2356 06/11/24 2025 06/11/24 1624 06/11/24 1108 06/11/24 0748 06/11/24 0357 06/11/24 0050 06/10/24 1922 06/10/24 1735 06/10/24 1125 06/10/24 0746 POCGLU 132 135 210* 81 233* 184 132 144 236* 123 216* 206* Heme No results for input(s): LDH, HAPTOGLOBIN, URICACID in the last 168 hours. ABG (Arterial Blood Gas) No results found for: PHART, PO2ART, MLS6ZCP, CES3GKA Microbiology: Microbiology Results (Last 30 days) No results found for the last 720 hours. Imaging: Results for orders placed or performed during the hospital encounter of 06/02/24 XR Chest One View (Exam End: 06/03/2024 2:41 AM) Result Value WORKSTATION ID [id number] Impression No radiographically evident acute cardiopulmonary process. Thank you for letting us participate in the care of this patient. If you are a health care provider and have any questions regarding this report, please contact the number below. For patients who have questions please contact the health child care supervisor that requested your imaging first. Electronically signed by: Corazon Mauro MD, [facility] ([phone]), at 06/03/2024 3:06 AM MRI Cardiac Morphology Function wwo Contrast (Exam End: 06/07/2024 1:10 PM) Result Value WORKSTATION ID [id number] Impression - Findings consistent with an ischemic [...] - Mildly dilated left ventricle size with lmhabqkt-qv-bbdelihx decreased LV systolic function. LV ejection fraction [...] questions please contact the health child care supervisor that requested your imaging first. Electronically signed by: Kriss Alonzo MD, [facility] ([phone]), at 06/07/2024 2:[address] Chest wo Contrast (Generic) (Exam End: 06/03/2024 4:33 PM) Result Value WORKSTATION ID [id number] Impression Cardiomegaly. Biventricular ICD leads in place. Thank you for letting us participate in the care of this patient. If you are a health care provider and have any questions regarding this report, please contact the number below. For patients who have questions please contact the health child care supervisor that requested your imaging first. Electronically signed by: Stuart Aponte MD, [facility] ([phone]), at 06/03/2024 4:47 PM XR Chest PA & Lateral (Generic) (Exam End: 06/07/2024 7:03 AM) Result Value WORKSTATION ID [id number] Impression Biventricular ICD leads intact and in [...] questions please contact the health child care supervisor that requested your imaging first. Electronically signed by: Stuart Aponte MD, [facility] ([phone]), at 06/07/2024 10:45 AM TTE: Limited echo performed by fellow photonics technician to assess LV function. Left ventricle is [...] ischemic cardiomyopathy with HFrEF (~30% EF), prior LA with stents, DM type 2, HTN, HLD, active smoker, presented with anterior STEMI. Angiography revealed severe multivessel CAD with extensive calcification and YUE 3 flow in all vessels, without a clear culprit lesion. Currently pain-free after TNK, Plavix, ASA, and heparin, with mildly elevated LVEDP at 40 mmHg and mild volume overload. 06/12/24: Patient stable, asymptomatic. Plan to go to greenhouse laborer for balloon pump tomorrow, then willgo [...] CODE Dain Colón MD Cardiology, M1-S2, Pager #[phone] 06/12/24 Associated attestation - Ethel Carrillo MD [...] of two midnights or is on the [facility] inpatient only procedure list (status C) due to: acute myocardial infarction requiring titration of IV medication and fluid monitoring and decompensated congestive heart failure requiring IV medication and fluid monitoring Ethel Carrillo MD Cardiovascular Medicine Personal Pager [phone] 06/12/2024 9:12 PM * Alejandra Baumann, PATTERN AND CHAIN MAKER - 06/11/2024 4:21 PM EST Images [...] too aggressive, suggest ICR 1:6 (rule of 232i210/81 = 6.25). George is up and walking [...] ischemic cardiomyopathy with HFrEF (~30% EF), prior LA with stents, DM type 2, HTN, HLD, [...] ac, metformin 1000mg BID Alejandra Baumann APRN [facility] Endocrinology Diabetes Management Pager [phone] Weekends please page [phone] 35 minutes were spent over the course [...] PCP: Mauro Berumen MD PCP phone number: [phone] Date of Admission: 06/02/2024 ( Hospital Day 9 days ) Attending:Melida Valdes MD ID: 69 y.o. male with a h/o DM type 2, HTN, HLD, current smoker (2-3 cigarettes/day), HFrEF with anICD for low EF (~30%), and CAD with prior LA x3 with JENNA placed in [place], [place], PAD, presented to [facility] with 1 hour of retrosternal CP (05/13) while watching TV, found to have STEMI. Active Problems: Active Hospital Problems Diagnosis STEMI (ST elevation myocardial infarction) Cardiac resynchronization therapy defibrillator (QUARTER SECTION IRONER-D) - Medtronic Amplia Cardiomyopathy, ischemic Acute on chronic heart failure with reduced ejection fraction (HFrEF, <= 40%) Coronary artery disease involving te-moak coronary artery of te-moak heart without angina pectoris Type 2 diabetes [...] Recent Labs 06/11/2421206/10/24 0155 06/09/2421106/08/24 0321 06/07/24 024 WBC 9.91* 9.00 9.80* 9.92* 10.06* HGB 15.3 14.9 15.5 15.1 14.8 HCT 47.5 46.4 47.4 46.7 46.2 PLATELET 184 191 205 203 202 MCV 92.6 92.2 91.5 91.7 92.0 Recent Labs 06/11/2421206/10/24 01506/09/24 0806/09/2421106/08/2432006/07/24 0944 06/07/24 0241 NA 134* 138 -- [...] in the last 7068 hours. Invalid input(s): [id number] Recent Labs 06/11/24 0357 06/11/24 0050 06/10/24 1922 06/10/24 1735 06/10/24 1125 06/10/24 0746 06/10/24 0423 06/10/24 0005 06/09/24 2036 06/09/24 1727 06/09/24 1152 06/09/24 0810 POCGLU 132 144 236* 123 216* 206* 154 125 197 174 211* 209* Heme No results for input(s): LDH, HAPTOGLOBIN, URICACID in the last 168 hours. ABG (Arterial Blood Gas) No results found for: PHART, PO2ART, GSY5TGK, YLC5OYE Microbiology: Microbiology Results (Last 30 days) No results found for the last 720 hours. Imaging: Results for orders placed or performed during the hospital encounter of 06/02/24 XR Chest One View (Exam End: 06/03/2024 2:41 AM) Result Value WORKSTATION ID [id number] Impression No radiographically evident acute cardiopulmonary process. Thank you for letting us participate in the care of this patient. If you are a health care provider and have any questions regarding this report, please contact the number below. For patients who have questions please contact the health child care supervisor that requested your imaging first. Electronically signed by: Corazon Mauro MD, [facility] ([phone]), at 06/03/2024 3:06 AM MRI Cardiac Morphology Function wwo Contrast (Exam End: 06/07/2024 1:10 PM) Result Value WORKSTATION ID [id number] Impression - Findings consistent with an ischemic [...] - Mildly dilated left ventricle size with jvqwppnu-ey-kiwuengl decreased LV systolic function. LV ejection fraction [...] questions please contact the health child care supervisor that requested your imaging first. Electronically signed by: Kriss Alonzo MD, [facility] ([phone]), at 06/07/2024 2:[address] Chest wo Contrast (Generic) (Exam End: 06/03/2024 4:33 PM) Result Value WORKSTATION ID [id number] Impression Cardiomegaly. Biventricular ICD leads in place. Thank you for letting us participate in the care of this patient. If you are a health care provider and have any questions regarding this report, please contact the number below. For patients who have questions please contact the health child care supervisor that requested your imaging first. Electronically signed by: Stuart Aponte MD, [facility] ([phone]), at 06/03/2024 4:47 PM XR Chest PA & Lateral (Generic) (Exam End: 06/07/2024 7:03 AM) Result Value WORKSTATION ID [id number] Impression Biventricular ICD leads intact and in [...] questions please contact the health child care supervisor that requested your imaging first. Electronically signed by: Stuart Aponte MD, [facility] ([phone]), at 06/07/2024 10:45 AM TTE: Limited echo performed by fellow photonics technician to assess LV function. Left ventricle is [...] Infusions: heparin (porcine) infusion 1,400 Units/hr (06/10/24 3195) PRN Meds:.insulin lispro, glucose 40% oral geL [...] ischemic cardiomyopathy with HFrEF (~30% EF), prior LA with stents, DM type 2, HTN, HLD, [...] CODE Dain Colón MD Cardiology, M1-S2, Pager #[phone] 06/11/24 Associated attestation - Ethel Carrillo MD [...] Ethel Carrillo MD Cardiovascular Medicine Personal Pager [phone] 06/11/2024 9:35 PM * Hilary Belle - 06/10/2024 12:39 PM EST Nutrition Services Note George Mehta is a 69 y.o. male Reason for intervention: hospital day 9 Nutrition Plan: Continue diet order: 60/60/75 CHO Level 2 Encourage good PO Lasix and Insulin noted Monitor weight Patient scheduled for a hospital day 9 nutrition evaluation. Zipper Repairer attempted to meet with pt at bedside [...] unless consulted in the interim. Hilary Belle Parking Enforcement Manager * Mariia Montero RN - 06/10/2024 12:23 PM EST I have met with the patient to: discuss discharge planning needs. provide the [facility], Office of Care Management letter from the Lopper pertaining to rehab referrals. provide a letter describing our affiliations within the [facility] and educate about their right to choose where referrals are sent. provide a list of Home Health Agencies / Durable Medical Equipment vendors which serve their preferred geographic area. provided patient with CMS Star Quality Rating handout. They have [facility] ref[facility] to: [facility]. [address] [place] [id number] RN / PT Anticipated d/c date: 06/20/24 Note routed to a Supervisor Color Making who will communicate referrals to facilities and provide any required information. * Dain Colón MD - 06/10/2024 7:17 AM EST Images from the original note were not included. . Cardiology Progress Note Patient info: Name: George Mehta : 1955 PCP: Mauro Berumen MD PCP phone number: [phone] Date of Admission: 06/02/2024 ( Hospital Day 8 days ) Attending:Melida Valdes MD ID: 69 y.o. male with a h/o DM type 2, HTN, HLD, current smoker (2-3 cigarettes/day), HFrEF with anICD for low EF (~30%), and CAD with prior LA x3 with JENNA placed in [place], [facility], PAD, presented to [facility] with 1 hour of retrosternal CP (05/13) while watching TV, found to have STEMI. Active Problems: Active Hospital Problems Diagnosis STEMI (ST elevation myocardial infarction) Cardiac resynchronization therapy defibrillator (QUARTER SECTION IRONER-D) - Medtronic Amplia Cardiomyopathy, ischemic Acute on chronic heart failure with reduced ejection fraction (HFrEF, <= 40%) Coronary artery disease involving te-moak coronary artery of te-moak heart without angina pectoris Type 2 diabetes [...] in the last 7068 hours. Invalid input(s): [id number] Recent Labs 06/10/24 0423 06/10/24 0005 06/09/24 2036 06/09/24 1727 06/09/24 1152 06/09/24 0810 06/09/24 0440 06/09/24 0034 06/08/24 2027 06/08/24 1616 06/08/24 1235 06/08/24 0810 POCGLU 154 125 197 174 211* 209* 131 186 176 159 226* 190 Heme No results for input(s): LDH, HAPTOGLOBIN, URICACID in the last 168 hours. ABG (Arterial Blood Gas) No results found for: PHART, PO2ART, WQC0TWV, EWC7OTQ Microbiology: Microbiology Results (Last 30 days) No results found for the last 720 hours. Imaging: Results for orders placed or performed during the hospital encounter of 06/02/24 XR Chest One View (Exam End: 06/03/2024 2:41 AM) Result Value WORKSTATION ID [id number] Impression No radiographically evident acute cardiopulmonary process. Thank you for letting us participate in the care of this patient. If you are a health care provider and have any questions regarding this report, please contact the number below. For patients who have questions please contact the health child care supervisor that requested your imaging first. Electronically signed by: Corazon Mauro MD, [facility] ([phone]), at 06/03/2024 3:06 AM MRI Cardiac Morphology Function wwo Contrast (Exam End: 06/07/2024 1:10 PM) Result Value WORKSTATION ID [id number] Impression - Findings consistent with an ischemic [...] - Mildly dilated left ventricle size with fmgbnpox-ml-qyolabto decreased LV systolic function. LV ejection fraction [...] questions please contact the health child care supervisor that requested your imaging first. Electronically signed by: Kriss Alonzo MD, [facility] ([phone]), at 06/07/2024 2:[address] Chest wo Contrast (Generic) (Exam End: 06/03/2024 4:33 PM) Result Value WORKSTATION ID [id number] Impression Cardiomegaly. Biventricular ICD leads in place. Thank you for letting us participate in the care of this patient. If you are a health care provider and have any questions regarding this report, please contact the number below. For patients who have questions please contact the health child care supervisor that requested your imaging first. Electronically signed by: Stuart Aponte MD, [facility] ([phone]), at 06/03/2024 4:47 PM XR Chest PA & Lateral (Generic) (Exam End: 06/07/2024 7:03 AM) Result Value WORKSTATION ID [id number] Impression Biventricular ICD leads intact and in [...] questions please contact the health child care supervisor that requested your imaging first. Electronically signed by: Stuart Aponte MD, [facility] ([phone]), at 06/07/2024 10:45 AM TTE: Limited echo performed by fellow photonics technician to assess LV function. Left ventricle is [...] ischemic cardiomyopathy with HFrEF (~30% EF), prior LA with stents, DM type 2, HTN, HLD, [...] CODE Dain Colón MD Cardiology, M1-S2, Pager #[phone] 06/10/24 Associated attestation - Melida Valdes MD [...] a lytic and brought directly to the Manager Fitness. Cardiac catheterization demonstrated multivessel disease with severe [...] who is agreeable Melida Valdes MD Staff Embossed Or Impressed Lettering Painter * Cherelle Fregoso APRN - 06/09/2024 8:59 [...] ischemic cardiomyopathy with HFrEF (~30% EF), prior LA with stents, DM type 2, HTN, HLD, [...] PCP: Mauro Berumen MD PCP phone number: [phone] Date of Admission: 06/02/2024 ( Hospital Day 7 days ) Attending:Melida Valdes MD ID: 69 y.o. male with a h/o DM type 2, HTN, HLD, current smoker (2-3 cigarettes/day), HFrEF with anICD for low EF (~30%), and CAD with prior LA x3 with JENNA placed in [place], [place], PAD, presented to [facility] with 1 hour of retrosternal CP (05/13) while watching TV, found to have STEMI. Active Problems: Active Hospital Problems Diagnosis STEMI (ST elevation myocardial infarction) Acute on chronic heart failure with reduced ejection fraction (HFrEF, <= 40%) Coronary artery disease involving te-moak coronary artery of te-moak heart without angina pectoris Type 2 diabetes [...] in the last 7068 hours. Invalid input(s): [id number] Recent Labs 06/09/24 0440 06/09/24 0034 06/08/24 2027 06/08/24 1616 06/08/24 1235 06/08/24 0810 06/08/24 0409 06/07/24 2357 06/07/24 2005 06/07/24 1631 06/07/24 1105 06/07/24 1103 POCGLU 131 186 176 159 226* 190 151 188 118 174 221* 250* Heme No results for input(s): LDH, HAPTOGLOBIN, URICACID in the last 168 hours. ABG (Arterial Blood Gas) No results found for: PHART, PO2ART, TXU1JPW, IKA8HMX Microbiology: Microbiology Results (Last 30 days) No results found for the last 720 hours. Imaging: Results for orders placed or performed during the hospital encounter of 06/02/24 XR Chest One View (Exam End: 06/03/2024 2:41 AM) Result Value WORKSTATION ID [id number] Impression No radiographically evident acute cardiopulmonary process. Thank you for letting us participate in the care of this patient. If you are a health care provider and have any questions regarding this report, please contact the number below. For patients who have questions please contact the health child care supervisor that requested your imaging first. Electronically signed by: Corazon Mauro MD, [facility] ([phone]), at 06/03/2024 3:06 AM MRI Cardiac Morphology Function wwo Contrast (Exam End: 06/07/2024 1:10 PM) Result Value WORKSTATION ID [id number] Impression - Findings consistent with an ischemic [...] - Mildly dilated left ventricle size with wndfoudb-mt-xfvcdpyi decreased LV systolic function. LV ejection fraction [...] questions please contact the health child care supervisor that requested your imaging first. Electronically signed by: Kriss Alonzo MD, [facility] ([phone]), at 06/07/2024 2:[address] Chest wo Contrast (Generic) (Exam End: 06/03/2024 4:33 PM) Result Value WORKSTATION ID [id number] Impression Cardiomegaly. Biventricular ICD leads in place. Thank you for letting us participate in the care of this patient. If you are a health care provider and have any questions regarding this report, please contact the number below. For patients who have questions please contact the health child care supervisor that requested your imaging first. Electronically signed by: Stuart Aponte MD, [facility] ([phone]), at 06/03/2024 4:47 PM XR Chest PA & Lateral (Generic) (Exam End: 06/07/2024 7:03 AM) Result Value WORKSTATION ID [id number] Impression Biventricular ICD leads intact and in [...] questions please contact the health child care supervisor that requested your imaging first. Electronically signed by: Stuart Aponte MD, [facility] ([phone]), at 06/07/2024 10:45 AM TTE: Limited echo performed by fellow photonics technician to assess LV function. Left ventricle is [...] Infusions: heparin (porcine) infusion 1,400 Units/hr (06/08/24 4744) PRN Meds:.glucose 40% oral geL OR dextrose [...] ischemic cardiomyopathy with HFrEF (~30% EF), prior LA with stents, DM type 2, HTN, HLD, [...] CODE Dain Colón MD Cardiology, M1-S2, Pager #[phone] 06/09/24 Associated attestation - Melida Valdes MD [...] a lytic and brought directly to the [employer]. Cardiac catheterization demonstrated multivessel disease with severe [...] insertion low EF. Melida Valdes MD Staff Embossed Or Impressed Lettering Painter * Alejandra Baumann, JOSÉ ANTONIO - 06/08/2024 [...] ischemic cardiomyopathy with HFrEF (~30% EF), prior LA with stents, DM type 2, HTN, HLD, [...] to optimize glucose control Alejandra Baumann APRN [facility] Endocrinology Diabetes Management Pager [phone] Weekends please page [phone] 35 minutes were spent over the course [...] PCP: Mauro Berumen MD PCP phone number: [phone] Date of Admission: 06/02/2024 ( Hospital Day 6 days ) Attending:Melida Valdes MD ID: 69 y.o. male with a h/o DM type 2, HTN, HLD, current smoker (2-3 cigarettes/day), HFrEF with anICD for low EF (~30%), and CAD with prior LA x3 with JENNA placed in [place], [place], PAD, presented to [facility] with 1 hour of retrosternal CP (05/13) while watching TV, found to have STEMI. Active Problems: Active Hospital Problems Diagnosis STEMI (ST elevation myocardial infarction) Acute on chronic heart failure with reduced ejection fraction (HFrEF, <= 40%) Coronary artery disease involving te-moak coronary artery of te-moak heart without angina pectoris Type 2 diabetes [...] 0-->no symptoms 06/03/24 0400 Labs: Recent Labs 06/08/2432006/07/24 0241 06/06/24 0333 06/05/244 06/04/24437 WBC 9.92* 10.06* 9.81* 10.83* 11.45* HGB 15.1 14.8 14.6 15.3 16.0 HCT 46.7 46.2 45.4 46.8 49.6* PLATELET 203 202 199 219 222 MCV 91.7 92.0 92.5 92.3 92.7 Recent Labs 06/08/2432006/07/24 1722 06/07/24 0944 06/07/24 0241 06/06/24 1437 [...] BILITOT 0.4 BILIDIR <0.2 Coags Recent Labs 10/31/24 0213 INR 1.0 PT 11.5 PTT 105* Cardiac Enzymes Recent Labs 06/03/24 0213 PROBNP 1,628* Endocrine No results for input(s): TSH, CORTISOL in the last 7068 hours. Invalid input(s): [id number] Recent Labs 06/08/24 0409 06/07/24 2357 06/07/24200406/07/24 1631 06/07/24 1105 06/07/24 1103 06/07/24 0745 06/07/24 0425 06/07/24 0008 06/06/24201706/06/24 1539 06/06/24 1339 POCGLU 151 188 118 174 221* 250* 175 127 182 143 147 317* Heme No results for input(s): LDH, HAPTOGLOBIN, URICACID in the last 168 hours. ABG (Arterial Blood Gas) No results found for: PHART, PO2ART, ITU5ENV, RRZ6PYJ Microbiology: Microbiology Results (Last 30 days) No results found for the last 720 hours. Imaging: Results for orders placed or performed during the hospital encounter of 06/02/24 XR Chest One View (Exam End: 06/03/2024 2:41 AM) Result Value WORKSTATION ID [id number] Impression No radiographically evident acute cardiopulmonary process. Thank you for letting us participate in the care of this patient. If you are a health care provider and have any questions regarding this report, please contact the number below. For patients who have questions please contact the health child care supervisor that requested your imaging first. Electronically signed by: Corazon Mauro MD, [facility] ([phone]), at 06/03/2024 3:06 AM MRI Cardiac Morphology Function wwo Contrast (Exam End: 06/07/2024 1:10 PM) Result Value WORKSTATION ID [id number] Impression - Findings consistent with an ischemic [...] - Mildly dilated left ventricle size with lvuvwbal-pz-ojrsuvqr decreased LV systolic function. LV ejection fraction [...] questions please contact the health child care supervisor that requested your imaging first. Electronically signed by: Kriss Alonzo MD, [facility] ([phone]), at 06/07/2024 2:[address] Chest wo Contrast (Generic) (Exam End: 06/03/2024 4:33 PM) Result Value WORKSTATION ID [id number] Impression Cardiomegaly. Biventricular ICD leads in place. Thank you for letting us participate in the care of this patient. If you are a health care provider and have any questions regarding this report, please contact the number below. For patients who have questions please contact the health child care supervisor that requested your imaging first. Electronically signed by: Stuart Aponte MD, [facility] ([phone]), at 06/03/2024 4:47 PM XR Chest PA & Lateral (Generic) (Exam End: 06/07/2024 7:03 AM) Result Value WORKSTATION ID [id number] Impression Biventricular ICD leads intact and in [...] questions please contact the health child care supervisor that requested your imaging first. Electronically signed by: Stuart Aponte MD, [facility] ([phone]), at 06/07/2024 10:45 AM TTE: Limited echo performed by fellow photonics technician to assess LV function. Left ventricle is [...] Infusions: heparin (porcine) infusion 1,400 Units/hr (06/08/24 0418) PRN Meds:.insulin lispro, potassium chloride ER OR [...] ischemic cardiomyopathy with HFrEF (~30% EF), prior LA with stents, DM type 2, HTN, HLD, [...] CODE Dain Colón MD Cardiology, M1-S2, Pager #[phone] 06/08/24 Associated attestation - Melida Valdes MD [...] a lytic and brought directly to the Manager [employer]. Cardiac catheterization demonstrated multivessel disease with severe [...] Otherwise clinically stable Melida Valdes MD Staff Embossed Or Impressed Lettering Painter * Ross Manuel PA - 06/07/2024 12:00 PM EST Cardiac Electrophysiology CIED Interrogation/Programming Note Asked by MRI staff to evaluate and program Medtronic QUARTER SECTION IRONER-D to allow for MR imaging. Patient Active Problem List Diagnosis ','STEMI (ST elevation myocardial infarction) Acute on chronic heart failure with reduced ejection fraction (HFrEF, <= 40%) Coronary artery disease involving te-moak coronary artery of te-moak heart without angina pectoris Type 2 diabetes mellitus Device Data: Medtronic Amplia MRI Quad QUARTER SECTION IRONER-D [id number] #[id number] 06/16/2019 RA Medtronic 4076 CapSureFix Novus [id number] 06/16/2019 RV Medtronic 6935M [id number] 06/16/2019 LV Medtronic 4298 Attain Performa MRI [id number] 06/16/2019 DDD @ 50/130/130 Adaptive Bi-V and LV VF >188bpm ATP, 35j x6 FVT >188-222bpm burst 2, 35jx5 VT Battery longevity: 2.5yrs; charge time 4s P wave: 2.3mV R wave: >20.0mV Atrial impedance: 458 ohms RV impedance: 646 ohms LV impedance: 722 ohms Atrial threshold: 0.5V @ 0.4ms RV threshold: LV threshold: 1.75V @ 0.4ms AP 0.2% INFLATABLE BUILDINGS LAMINATOR 97.7% AT/AF 0% Impression and Plan: 1. Interrogated device to determine suitability for MRI 2. Programmed to MRI safe mode - VOO @ 70 3. Scan performed 4. Programming restored to baseline settings 5. Reinterrogated to verify appropriate function and settings 6. Device follow up as previously scheduled Provider: HENOK Meyer EP Consult attending physician: Libby Barton MD EP Consult positional pager #[phone](EPMD) EP Device interrogation positional pager # [phone] * Dain Colón MD - 06/07/2024 7:09 AM EST Images from the original note were not included. . Cardiology Progress Note Patient info: Name: George Mehta : 1955 PCP: Mauro Berumen MD PCP phone number: [phone] Date of Admission: 06/02/2024 ( Hospital Day 5 days ) Attending:Melida Valdes MD ID: 69 y.o. male with a h/o DM type 2, HTN, HLD, current smoker (2-3 cigarettes/day), HFrEF with anICD for low EF (~30%), and CAD with prior LA x3 with JENNA placed in [place], Melanoma, PAD, presented to [facility] with 1 hour of retrosternal CP (05/13) while watching TV, found to have STEMI. Active Problems: Active Hospital Problems Diagnosis STEMI (ST elevation myocardial infarction) Acute on chronic heart failure with reduced ejection fraction (HFrEF, <= 40%) Coronary artery disease involving te-moak coronary artery of te-moak heart without angina pectoris Type 2 diabetes [...] 0-->no symptoms 06/03/24 0400 Labs: Recent Labs 06/07/24 0241 06/06/24 0333 [...] in the last 7068 hours. Invalid input(s): [id number] Recent Labs 06/07/24 0425 06/07/24 0008 06/06/24 2018 06/06/24 1539 06/06/24 1339 06/06/24 1134 06/06/24 0757 06/06/24 0653 06/05/24 2231 06/05/24 1622 06/05/24 1134 06/05/24 0727 POCGLU 127 182 143 147 317* 264* 195 187 238* 205* 211* 166 Heme No results for input(s): LDH, HAPTOGLOBIN, URICACID in the last 168 hours. ABG (Arterial Blood Gas) No results found for: PHART, PO2ART, DWJ9ZPL, QER8FTU Microbiology: Microbiology Results (Last 30 days) No results found for the last 720 hours. Imaging: Results for orders placed or performed during the hospital encounter of 06/02/24 XR Chest One View (Exam End: 06/03/2024 2:41 AM) Result Value WORKSTATION ID [id number] Impression No radiographically evident acute cardiopulmonary process. Thank you for letting us participate in the care of this patient. If you are a health care provider and have any questions regarding this report, please contact the number below. For patients who have questions please contact the health child care supervisor that requested your imaging first. Electronically signed by: Corazon Mauro MD, [facility] ([phone]), at 06/03/2024 3:[address] Chest wo Contrast (Generic) (Exam End: 06/03/2024 4:33 PM) Result Value WORKSTATION ID [id number] Impression Cardiomegaly. Biventricular ICD leads in place. Thank you for letting us participate in the care of this patient. If you are a health care provider and have any questions regarding this report, please contact the number below. For patients who have questions please contact the health child care supervisor that requested your imaging first. Electronically signed by: Stuart Aponte MD, [facility] ([phone]), at 06/03/2024 4:47 PM TTE: Limited echo performed by fellow photonics technician to assess LV function. Left ventricle is [...] Infusions: heparin (porcine) infusion 1,400 Units/hr (06/06/24 9722) PRN Meds:.insulin lispro, potassium chloride ER OR [...] ischemic cardiomyopathy with HFrEF (~30% EF), prior LA with stents, DM type 2, HTN, HLD, [...] Dain Colón MD (PGY-1) Cardiology, M1-S2, Pager #[phone] 06/07/24 Associated attestation - Melida Valdes MD [...] a lytic and brought directly to the Manager Fitness. Cardiac catheterization demonstrated multivessel disease with severe [...] for further guidance. Melida Valdes MD Staff Embossed Or Impressed Lettering Painter * Dain Colón MD - 06/06/2024 7:17 AM EST Images from the original note were not included. . Cardiology Progress Note Patient info: Name: George Mehta : 1955 PCP: Mauro Berumen MD PCP phone number: [phone] Date of Admission: 06/02/2024 ( Hospital Day 4 days ) Attending:Melida Valdes MD ID: 69 y.o. male with a h/o DM type 2, HTN, HLD, current smoker (2-3 cigarettes/day), HFrEF with anICD for low EF (~30%), and CAD with prior LA x3 with JENNA placed in [place], Melanoma, PAD, presented to [facility] with 1 hour of retrosternal CP (05/13) while watching TV, found to have STEMI. Active Problems: Active Hospital Problems Diagnosis STEMI (ST elevation myocardial infarction) Acute on chronic heart failure with reduced ejection fraction (HFrEF, <= 40%) Coronary artery disease involving te-moak coronary artery of te-moak heart without angina pectoris Type 2 diabetes [...] Recent Labs 06/06/24 0333 06/05/24 0904 06/05/24 03406/04/24 2234 06/04/24 1635 06/04/24 1041 06/04/24 0438 [...] in the last 7068 hours. Invalid input(s): [id number] Recent Labs 06/06/24 0653 06/05/24 2231 06/05/24 1622 06/05/24 1134 06/05/24 0727 06/04/24 1943 06/04/24 1526 06/04/24 1109 06/04/24 0711 06/03/24 2005 06/03/24 1748 06/03/24 1114 POCGLU 187 238* 205* 211* 166 175 154 188 182 136 191 166 Heme No results for input(s): LDH, HAPTOGLOBIN, URICACID in the last 168 hours. ABG (Arterial Blood Gas) No results found for: PHART, PO2ART, FCV2GVK, OMY3MQI Microbiology: Microbiology Results (Last 30 days) No results found for the last 720 hours. Imaging: Results for orders placed or performed during the hospital encounter of 06/02/24 XR Chest One View (Exam End: 06/03/2024 2:41 AM) Result Value WORKSTATION ID [id number] Impression No radiographically evident acute cardiopulmonary process. Thank you for letting us participate in the care of this patient. If you are a health care provider and have any questions regarding this report, please contact the number below. For patients who have questions please contact the health child care supervisor that requested your imaging first. Electronically signed by: Corazon Mauro MD, [facility] ([phone]), at 06/03/2024 3:[address] Chest wo Contrast (Generic) (Exam End: 06/03/2024 4:33 PM) Result Value WORKSTATION ID [id number] Impression Cardiomegaly. Biventricular ICD leads in place. Thank you for letting us participate in the care of this patient. If you are a health care provider and have any questions regarding this report, please contact the number below. For patients who have questions please contact the health child care supervisor that requested your imaging first. Electronically signed by: Stuart Aponte MD, [facility] ([phone]), at 06/03/2024 4:47 PM TTE: Limited echo performed by fellow photonics technician to assess LV function. Left ventricle is [...] ischemic cardiomyopathy with HFrEF (~30% EF), prior LA with stents, DM type 2, HTN, HLD, [...] Dain Colón MD (PGY-1) Cardiology, M1-S2, Pager #[phone] 06/06/24 Associated attestation - Melida Valdes MD [...] a lytic and brought directly to the [employer]. Cardiac catheterization demonstrated multivessel disease with severe [...] management. Help appreciated Melida Valdes MD Staff Embossed Or Impressed Lettering Painter * Frederick Dunn MD - 06/05/2024 8:13 AM EDT Images from the original note were not included. . Cardiology Progress Note Patient info: Name: George Mehta : 1955 PCP: Mauro Berumen MD PCP phone number: [phone] Date of Admission: 06/02/2024 ( Hospital Day 3 days ) Attending:Melida Valdes MD ID: 69 y.o. male with a h/o DM type 2, HTN, HLD, current smoker (2-3 cigarettes/day), HFrEF with anICD for low EF (~30%), and CAD with prior LA x3 with JENNA placed in [place], Melanoma, PAD, presented to [facility] with 1 hour of retrosternal CP (05/13) [...] symptoms 06/03/24 0400 Labs: Recent Labs 06/05/24 0344 06/04/24 0438 06/03/24 0213 WBC 10.83* 11.45* 11.16* HGB 15.3 16.0 [...] -- -- 1.22 1.13 LFTs Recent Labs 06/03/24 0213 PROT 7.0 ALBUMIN 3.8 AST 20 ALT 12 ALKPHOS 76 BILITOT 0.4 BILIDIR <0.2 Coags Recent Labs 06/03/24 0213 INR 1.0 PT 11.5 PTT 105* Cardiac Enzymes Recent Labs 06/03/24 0213 PROBNP 1,628* Endocrine No results for input(s): TSH, CORTISOL in the last 7068 hours. Invalid input(s): [id number] Recent Labs 06/05/24 1134 06/05/24 0727 06/04/24 1943 06/04/24 1526 06/04/24 1109 06/04/24 0711 06/03/24 2005 06/03/24 1748 06/03/24 1114 06/03/24 0754 06/02/24 2331 POCGLU 211* 166 175 154 188 182 136 191 166 195 156 Heme No results for input(s): LDH, HAPTOGLOBIN, URICACID in the last 168 hours. ABG (Arterial Blood Gas) No results found for: PHART, PO2ART, NRJ3YPZ, BRV1KCR Microbiology: Microbiology Results (Last 30 days) No results found for the last 720 hours. Imaging: Results for orders placed or performed during the hospital encounter of 06/02/24 XR Chest One View (Exam End: 06/03/2024 2:41 AM) Result Value WORKSTATION ID [id number] Impression No radiographically evident acute cardiopulmonary process. Thank you for letting us participate in the care of this patient. If you are a health care provider and have any questions regarding this report, please contact the number below. For patients who have questions please contact the health child care supervisor that requested your imaging first. Electronically signed by: Corazon Mauro MD, [facility] ([phone]), at 06/03/2024 3:[address] Chest wo Contrast (Generic) (Exam End: 06/03/2024 4:33 PM) Result Value WORKSTATION ID [id number] Impression Cardiomegaly. Biventricular ICD leads in place. Thank you for letting us participate in the care of this patient. If you are a health care provider and have any questions regarding this report, please contact the number below. For patients who have questions please contact the health child care supervisor that requested your imaging first. Electronically signed by: Stuart Aponte MD, [facility] ([phone]), at 06/03/2024 4:47 PM TTE: Limited echo performed by fellow photonics technician to assess LV function. Left ventricle is [...] ischemic cardiomyopathy with HFrEF (~30% EF), prior LA with stents, DM type 2, HTN, HLD, [...] all the information they need regarding the QUARTER SECTION IRONER-D.Plan for MRI tomorrow. Starting 40 mg [...] None GI PPx: Diet: Carb Control diet CHO counting level 2 Lines: PIV 06/02/24 [...] a lytic and brought directly to the Manager [employer]. Cardiac catheterization demonstrated multivessel disease with severe [...] maintenance of 40. Melida Valdes MD Staff Embossed Or Impressed Lettering Painter * Migel Javier RN - 06/05/2024 6:21 AM EDT Implanted device record scanned into: Chart Review-->Media-->External Cardiology-->03/25/2024. Medtronic UsherBuddyia MRI Quad CRTD [id number] Serial #: [id number] DDD mode A + Bi/V Rates 50-130 Migel Javier RN * Dain Colón MD - 06/04/2024 11:16 AM EDT Implant Records Requested Type: QUARTER SECTION IRONER-D Server Engineer: Medtr[employer] Product: [id number] Amplia MRI MRI compatibility: Compatible for 1.5-3 T Model #: [id number] Placed at: [place], [place] Records requested for MRI: 1. Operative report 2. Implant log I requested that these records be sent to our MRI department, Dain Colón MD 06/04/24 11:58 AM * Dain Colón MD - 06/04/2024 6:57 AM EDT Images from the original note were not included. . Cardiology Progress Note Patient info: Name: George Mehta : 1955 PCP: Mauro Berumen MD PCP phone number: [phone] Date of Admission: 06/02/2024 ( Hospital Day 2 days ) Attending:Delroy Fofana MD ID: 69 y.o. male with a h/o DM type 2, HTN, HLD, current smoker (2-3 cigarettes/day), HFrEF with anICD for low EF (~30%), and CAD with prior LA x3 with JENNA placed in [place], Melanoma, PAD, presented to [facility] with 1 hour of retrosternal CP (05/13) [...] 222 217 MCV 92.7 93.1 Recent Labs 06/04/24 0438 06/03/24212 NA 137 139 CL 97* 101 CO2 [...] in the last 7068 hours. Invalid input(s): [id number] Recent Labs 06/03/24 2005 06/03/24 1748 06/03/24 1114 06/03/24 0754 06/02/24 2331 POCGLU 136 191 166 195 156 Heme No results for input(s): LDH, HAPTOGLOBIN, URICACID in the last 168 hours. ABG (Arterial Blood Gas) No results found for: PHART, PO2ART, FKP2KSW, EAX7UAF Microbiology: Microbiology Results (Last 30 days) No results found for the last 720 hours. Imaging: Results for orders placed or performed during the hospital encounter of 06/02/24 XR Chest One View (Exam End: 06/03/2024 2:41 AM) Result Value WORKSTATION ID [id number] Impression No radiographically evident acute cardiopulmonary process. Thank you for letting us participate in the care of this patient. If you are a health care provider and have any questions regarding this report, please contact the number below. For patients who have questions please contact the health child care supervisor that requested your imaging first. Electronically signed by: Corazon Mauro MD, [facility] ([phone]), at 06/03/2024 3:[address] Chest wo Contrast (Generic) (Exam End: 06/03/2024 4:33 PM) Result Value WORKSTATION ID [id number] Impression Cardiomegaly. Biventricular ICD leads in place. Thank you for letting us participate in the care of this patient. If you are a health care provider and have any questions regarding this report, please contact the number below. For patients who have questions please contact the health child care supervisor that requested your imaging first. Electronically signed by: Stuart Aponte MD, [facility] ([phone]), at 06/03/2024 4:47 PM TTE: Limited echo performed by fellow photonics technician to assess LV function. Left ventricle is [...] ischemic cardiomyopathy with HFrEF (~30% EF), prior LA with stents, DM type 2, HTN, HLD, [...] -Lasix 40 mg IV given in the greenhouse laborer; assess diuretic response, consider re-dosing -Continue [...] @YESSI@ Dain Colón MD (PGY-1) Cardiology M1-S2, #[id number] 06/04/2024, 6:57 AM Associated attestation - Melida [...] a lytic and brought directly to the Manager [employer]. Cardiac catheterization demonstrated multivessel disease with severe [...] -MRI with viability on Friday -Diuresis with Timothyix Melida Valdes MD Staff Embossed Or Impressed Lettering Painter * Fatmata Mcallister PT - 06/03/2024 3:29 PM EDT Physical Therapy 06/03/24 1527 Evaluation & Treatment Document Type contact Total Minutes, Physical Therapy 0 Comment, Session Not Performed PT consult received/hx/current status reviewed. w/u ongoing following STEMI, intenventional plan TBD. Pt is independently mobile at present, will defer imminent asesssment and f.u as appropriate when POC determined (CABG vs PCI) Fatmata Mcallister PT, [facility] Pager [phone] Inpatient Physical Therapy * Marlin Gómez MD [...] Marlin Gómez MD Cardiology S2, Pager # [phone] 06/03/2024 * Delroy Fofana MD - 06/03/2024 7:16 AM EDT Images from the original note were not included. . Cardiology Progress Note Patient info: Name: George Mehta : 1955 PCP: Mauro Berumen MD PCP phone number: [phone] Date of Admission: 06/02/2024 ( Hospital Day 1 day ) Attending:Nuha Rojo MD ID: 69 y.o. male with a h/o DM type 2, HTN, HLD, current smoker (2-3 cigarettes/day), HFrEF with anICD for low EF (~30%), and CAD with prior LA x3 with JENNA placed in [place], Melanoma, PAD, presented to [facility] with 1 hour of retrosternal CP (05/13) [...] in the last 7068 hours. Invalid input(s): QNRUPVQZCKB1T Recent Labs 06/02/24 2331 POCGLU 156 Heme No results for input(s): LDH, HAPTOGLOBIN, URICACID in the last 168 hours. ABG (Arterial Blood Gas) No results found for: PHART, PO2ART, GAA5LFB, CGY3HJZ Microbiology: Microbiology Results (Last 30 days) No results found for the last 720 hours. Imaging: Results for orders placed or performed during the hospital encounter of 06/02/24 XR Chest One View (Exam End: 06/03/2024 2:41 AM) Result Value WORKSTATION ID [id number] Impression No radiographically evident acute cardiopulmonary process. Thank you for letting us participate in the care of this patient. If you are a health care provider and have any questions regarding this report, please contact the number below. For patients who have questions please contact the health child care supervisor that requested your imaging first. Electronically signed by: Corazon Mauro MD, [facility] ([phone]), at 06/03/2024 3:06 AM TTE: Limited echo performed by fellow photonics technician to assess LV function. Left ventricle is [...] ischemic cardiomyopathy with HFrEF (~30% EF), prior LA with stents, DM type 2, HTN, HLD, [...] -Lasix 40 mg IV given in the greenhouse laborer; assess diuretic response, consider re-dosing -Continue [...] plan of care per Dain Colón MD (remote medical coder). Please refer to his note above for details. Very pleasant 69 year old male but he is obese, diabetic, and he is a SMOKER with known prior CAD and moderately reduced LVEF (30%). He has a pacer. History of surgical resection of melanoma on his head. The patient was transferred overnight to [facility] as a STEMI. He was treated initially with a lytic (TNK) and brought directly to the greenhouse laborer. The cath demonstrated 3VD with diffuse [...] - 06/13/2024 10:58 AM EST ICU Blue (#[id number]) H&P Patient info: Name: George Mehta : 1955 PCP: Mauro Berumen MD PCP phone number: [phone] Date of Admission: 06/02/2024 ( Hospital Day 11 days ) Attending:Haja Byrnes MD ID: George Mehta is a 69 y.o. male with a h/o DM type 2, HTN, HLD, current smoker (2-3 cigarettes/day), HFrEF with an ICD for low EF (~30%), and CAD with prior LA x3 with JENNA placed in [facility], PAD, presented to [facility] with 1 hour of retrosternal CP (05/13) while watching TV, foundto have STEMI. HPI: Shahnaz Scanlon H&P 06/02 69 y.o. male with a h/o DM type 2, HTN, HLD, current smoker (2-3 cigarettes/day), HFrEF with an ICD for low EF (~30%), and CAD with prior LA x3 with JENNA placed in [place], [facility], PAD, presented to [facility] with 1 hour of retrosternal CP (05/13) while watching TV. CP was non-radiating, not asso ciated with diaphoresis, nausea, or SOB. Denies orthopnea, MARTÍNEZ, palpitations, or LE edema. ECG showed findings consistent with anterior STEMI. He received TNK and was transferred for PCI. Coronary angiography showed a small, non-dominant RCA with jnrk-ax-zmhewzot disease and a dominant,heavily calcified left system with prior stents in the LAD and OM. The LM bifurcates into the LAD and LCX, both heavily calcified. The proximal LCX has a 75% calcified, aneurysmal lesion, and an 80% calcified lesion distally before a large OM2. OM1 is a ORTHODONTIC TECHNICIAN with in-stent restenosis, filling retrograde via [...] 40 mg Lasix was administered in the greenhouse laborer. Cardiac surgery was consulted and plan [...] Blood Gas) No results for input(s): PHART, HUH8RCX, PO2ART, CHY2ZDY, LACTATEVEN, PFK1MXX, PFRATIOART2 in the last 168 hours. VBG (Venous Blood Gas) Recent Labs 06/10/24 1742 PHVEN 7.34 PO2VEN 24 JXF5MXO 27.4 Mixed Venous Sat No results for input(s): I6YKYV1 in the last 168 hours. Intake/Output Summary [...] in the last 7068 hours. Invalid input(s): MIBNBLZVUAA2M Recent Labs 06/13/24 0741 06/13/24 0325 06/12/24 2353 06/12/24 1932 06/12/24 1541 06/12/24 1121 06/12/24 0800 06/12/24 0425 06/11/24 2356 06/11/24 2025 06/11/24 1624 06/11/24 1108 POCGLU 126 99 141 158 113 207* 169 132 135 210* 81 233* Heme No results for input(s): LDH, HAPTOGLOBIN, URICACID in the last 168 hours. ABG (Arterial Blood Gas) No results for input(s): PHART, OMD7RXK, PO2ART, RIU5RAT, LACTATEVEN, RXN4SUC, PFRATIOART2 in the last 168 hours. VBG (Venous Blood Gas) Recent Labs 06/10/24 1742 PHVEN 7.34 PO2VEN 24 URX4PHG 27.4 Mixed Venous Sat No results for input(s): I8XJIG3 in the last 168 hours. Microbiology: Microbiology Results (Last 30 days) No results found for the last 720 hours. Assessment & Plan: George Mehta is a 69 y.o. male with CAD, ischemic cardiomyopathy with HFrEF (~30% EF), prior LA with stents, DM type 2, HTN, HLD, active smoker, presented with anterior STEMI. Angiography revealedsevere multivessel CAD with extensive calcification and YUE 3 flow in all vessels, without a clearculprit lesion. Currently pain-free after TNK, Plavix, ASA, and heparin, with mildly elevated LVEDPat 40 mmHg and mild volume overload. Admitted to [facility] for clarence-operative management following IABP placement. Planned [...] (Give Meds) Daily Healthy Menu Choices/Cardiac diet ([facility]-Diet) DVT Prophylaxis: SCD GI Prophylaxis: None Dispo: [...] TUD (abstinent since admission), ASCVD with multipleprior LA and PCIs, ICM/HFrEF LVEF 30% (all [...] is in the chart Rebeca Prado MD Industrial Economics Professor PGY6 [id number] * Shahnaz Scanlon MD - [...] low EF (~30%), and CAD with prior LA x3 with JENNA placed in [place], Melanoma, PAD, presented to [facility] with 1 hour of retrosternal CP (05/13) while watching TV. CP was non-radiating, not assoc iated with diaphoresis, nausea, or SOB. Denies orthopnea, MARTÍNEZ, palpitations, or LE edema. ECG showed findings consistent with anterior STEMI. He received TNK and was transferred for PCI. Coronary angiography showed a small, non-dominant RCA with sbox-wl-bamyaxgu disease and a dominant,heavily calcified left system with prior stents in the LAD and OM. The LM bifurcates into the LAD and LCX, both heavily calcified. The proximal LCX has a 75% calcified, aneurysmal lesion, and an 80% calcified lesion distally before a large OM2. OM1 is a ORTHODONTIC TECHNICIAN with in-stent restenosis, filling retrograde via [...] 40 mg Lasix was administered in the greenhouse laborer. Past Medical History: As per HPI [...] Affect: Mood normal. Behavior: Behavior normal. Diagnostics: [facility] 06/02/2024 Coronary angiography revealed small non [...] ischemic cardiomyopathy with HFrEF (~30% EF), prior LA with stents, DM type 2, HTN, HLD, [...] -Lasix 40 mg IV given in the greenhouse laborer; assess diuretic response. -Continue carvedilol; hold [...] & Follow-up Care: Contact information for follow-up [facility] [address] [facility] [address] Cardiac Rehab, [address] [facility] [address] RN AVILA confirmed with [facility] that they [...] N/A Patient is insured through: Primary Insurance: AAR MANAGED MEDICARE Payor: AAR MANAGED MEDICARE / Plan: [facility] MANAGED MEDICARE COMPLETE / Product Type: [...] call jones within reach. PLAN MOVING FORWARD: Manpreet D/C planning INDIVIDUALIZED FALL PREVENTION INTERVENTIONS: Assistance [...] Roberts RN - 06/18/2024 10:50 AM EST [facility] George Mehta was seen today regarding participation in the outpatient Phase 2 Cardiac Rehabilitation at [facility]. The patient agrees to a referral to [...] recs Patient is insured through: Primary Insurance: [employer] MANAGED MEDICARE Payor: [employer] MANAGED MEDICARE / Plan: [employer] RPPO MANAGED MEDICARE COMPLETE / Product Type: *No Product type* / Secondary Insurance: N/A Last Physical Therapy Recommendation: (home with ) with to be determined (06/15/24 1028) Plan for discharge is: Home w/ Services Outpatient Agency/Support Group Needs: Homecare agency Agency Choices: [facility]: Medication checks, Registered Nurse, Physical Therapy Agency Referrals: pending clinical course and PT/OT recs [facility] [address] [address] PHONE: [phone] FAX: [phone] Transportation: family or friend will provide Barriers [...] Agency/Support Group Needs: Homecare agency Agency Choices: [facility]: Medication checks, Registered Nurse, Physical Therapy Agency Referrals: pending clinical course and PT/OT recs [facility]. [address] [facility] [address] PHONE: [phone] FAX: [phone] Transportation: family or friend will provide Barriers [...] Loja MD - 06/14/2024 8:48 AM EST [facility] Operative Note Patient Name: George Mehta : [id number] MR#: [id number] Case Date: 06/14/2024 Surgeon: Surgeons and Role: * Bobby Loja MD - Primary * Rashi Bass PA - Physician Bonding Equipment Operator Preoperative diagnosis: CAD, MARIALUISA flickering mass [...] PROTHROMBIN TIME, APTT, HEMOGLOBIN AND HEMATOCRIT, BLOOD SurgenorHosea MD 06/14/2024 1230 Drains: 3 chest tubes [...] area. The patient was transported to the [facility] in a critical but stable condition Surgical [...] procedures today and tomorrow. Report called to [facility] - all belongings with patient. PLAN MOVING FORWARD: quality lab assoc and transfer to CV. INDIVIDUALIZED FALL PREVENTION [...] Agency/Support Group Needs: Homecare agency, Agency Choices: [facility]. Home Health Services: Medication checks, Registered Nurse, Physical Therapy Agency Referrals: [facility]. [address] [place] [id number] RN / PT Routed 06/10 Transportation: family [...] with home health services when medically ready. boat builder and repairer/Traction Power Engineer will continue to follow patient???s progress and remain available if situation changes for coordination of care, psychosocial support and/or discharge planning. Anticipated Date of Discharge: 06/18/2024 Mariia Montero RN CM Extension [phone] * Plan of Care - Migel Javier [...] No Patient is insured through: Primary Insurance: [facility] MANAGED MEDICARE Payor: [facility]NA[facility]ED MEDICARE / Plan: [facility] MANAGED MEDICARE COMPLETE / Product Type: [...] consult for high risk PCI vs CABG boat builder and repairer/Traction Power Engineer will continue to follow patient???s progress and remain available if situation changes for coordination of care, psychosocial support and/or discharge planning. 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 Diabetes History: George [...] Breakfast- varies - eggs with khoury or cuban muffin Lunch- turkey sandwich Supper- meat and [...] ischemic cardiomyopathy with HFrEF (~30% EF), prior LA with stents, DM type 2, HTN, HLD, [...] Baumann APRN Endocrinology Diabetes Management Service Pager: [phone] Weekends please page [phone] 80 minute visit was spent in counseling [...] y.o. male with a PMHx of previous LA s/p PCI x3, ICM/HFrEF (LVEF 30%) s/p ICD, DMII, HTN, HLD, remote melanoma, and smoker who presented to [facility] last night via EMS after developing acute, severe chest pain while watching TV. Patient was ruled in for STEMI, given TNK, ASA, plavix, heparin gtt, and sent to [facility] for coronary angiography. LHC demonstrated severely calcified left coronary system with notable LCx 75/80% lesions and ORTHODONTIC TECHNICIAN OM1 with ISR with collateral retrograde [...] elevation myocardial infarction) Past Medical History: previous LA s/p PCI x3 ICM/HFrEF (LVEF 30%) s/p [...] 06/03/2024 PLATELET 217 06/03/2024 Recent Labs 06/03/24 021 INR 1.0 Lab Results Component Value Date [...] is large. OM1 appears to be a ORTHODONTIC TECHNICIAN, with in stentrestenosis and fills retrograde [...] y.o. male admitted with STEMI s/p TNK, [facility] showing multivessel CAD including ISR, no [...] to our service. Signed: Paula Treviño PA-C [facility] Section of Cardiac Surgery Date: 06/03/2024 * Initial Assessments - Catina Estrada MSW - 06/03/2024 10:32 AM EDT Office of Care Management Initial Assessment CHINA Humphrey reviewed record and discussed patient with Care Team. Source of Information: Team, bedside nurse, medical record, and Patient MANAGER GROCERY Introduced self/reviewed role; services accepted. Admitted From: Transfer from another hospital Location: [facility] Reason for Hospitalization: Chest Pain while watching TV, doctors said I had a heart attack Past medical History: No past medical history on file. Hospitalizations Within the Past 30 Days: no previous admission in last 30 days Current Decision-Making Capacity: Self If AD's have not been completed the following surrogate would be surrogate decision maker per [place] surrogate decision making law. (Only good for 180 days) Any patient receiving care in [place] must abide by [place] law. The hierarchy for surrogate decision making [...] (i) The agent with financial power of commonwealth attorney or a conservator appointed in accordance [...] In the past 12 months has the [employer], gas, oil, or water [employer] threatened to shut off services in your [...] in the bathroom) Home Address confirmed as: [address] [place] [address] [address] [facility] [address] Social & Family Supports: All names listed [...] Coverage: Primary Insurance: [employer] MANAGED MEDICARE Payor: [employer]ARP MANAGED MEDICARE / [facility]: [facility] / Product Type: *No Product type* / Secondary Insurance: N/A ; Prescription Coverage: Yes Preferred Pharmacy: [id number] - [facility], [place] - [address] [facility] [address] [facility] [place] [address] [place] Status: Patient is a : No Primary Care Provider confirmed: Mauro Berumen MD [phone] Patient/Caregiver Goals of Treatment: Potential Needs for [...] care as indicated. CHINA Min Cardiology, ext. [phone] * Brief Op Note - Angeles Gaxiola PA - 06/03/2024 12:23 AM EDT Preliminary Cardiac Catheterization Procedure Note: Patient Name: George Mehta : [id number] MR#: [id number] Case Date: 06/02/2024 - 06/03/2024 Manufacturer'S Service Representative: Surgeons and Role: * Nuha Shen MD - Primary * Angeles Gaxiola PA - Physician Bonding Equipment Operator Preoperative diagnosis: STEMI Postoperative diagnosis: * STEMI * Procedure(s) performed: RRA access [facility] Coronary angiogram IVUS LM/LAD/LCX Access: 6 Fr RRA A time-out was conducted prior to the start of the procedure to verify the correct patient and procedure, procedure location, and all relevant critical information. Preliminary findings: 69 year old current smoker (1-2 cigarette's per day), DM type 2, hypertension, dyslipidemia, ICD for HFrEF/low EF (~30%), CAD with prior LA and 3 stents historically (in [place]) who presented to [facility] with 1 hour of rest chest pain [...] is large. 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) 06/14/2024 7:34 AM EST CAD Endoscopy W/Video-Asst Vein [place], Cabg ([id number]) 06/14/2024 7:34 AM EST CAD Cabg, Artery-Vein, Two ([id number]) 06/14/2024 7:34 AM EST CAD Cabg, Arterial, Single ([id number]) 06/14/2024 7:34 AM EST CAD TRANSESOPHAGEAL ECHOCARDIOGRAM IN THE OR Routine 06/14/2024 7:20 AM EST Coronary artery disease involving te-moak coronary artery of te-moak heart without angina pectoris POC, GLUCOSE Routine [...] 06/13/2024 4:09 PM EST TYPE AND SCREEN ([facility]/CGP/RAFITA) STAT 06/13/2024 11:53 AM EST POC, GLUCOSE [...] O RDERABLES [facility] [place] [address] * (ABNORMAL) Basic Metabolic Panel (06/21/2024 2:09 AM EST) Glucose 169 65 - 199 mg/dL 06/21/2024 3:10 AM EST [facility] Comment:Glucose Concentratio n >=200 mg/dL plus symptoms is consistent with Diabetes Mellitus. Blood Urea Nitrogen 27(H) 10 - 20 mg/dL 06/21/2024 3:10 AM [facility] Creatinine 1.24 0.80 - 1.50 mg/dL 06/21/2024 3:10 AM [facility] Sodium 138 135 - 145 mMol/L 06/21/2024 3:10 AM EST [facility] Potassium 4.2 3.5 - 5.0 mMol/L 06/21/2024 3:10 AM EST [facility] Chloride 100 98 - 107 mMol/L 06/21/2024 3:10 AM [facility] Carbon Dioxide 27 22 - 31 mMol/L 06/21/2024 3:10 AM [facility] Anion Gap 11 5 - 15 mMol/L 06/21/2024 3:10 AM [facility] Calcium 8.7 8.5 - 10.5 mg/dL 06/21/2024 3:10 AM [facility] Est Glomerular Filtration Rate - Male 64 mL/min/1. 73 m?? 06/21/2024 3:10 AM EST [facility] APRN CHEMISTRY ORDERABL ES Performing Organization Address City/[facility]/ZIP Co de Phone Number [facility] [address] * POC, GLUCOSE (06/21/2024 12:04 AM EST) [...] O RDERABLES [facility] [address] * POC, GLUCOSE (06/20/2024 11:14 PM EST) Glucometer, POC 67 65 - 199 mg/dL 06/20/2024 11:14 PM EST [facility] Comment:Supplemental ranges: <140 mg/dL before meals <180 mg/dL all other times of the day. Blood CAPILLARY BLOOD / Unknown 06/20/2024 11:14 PM EST 06/20/2024 11:14 PM EST Narrative Authorizing Provider Result Saranya Loja MD POINT OF CARE TEST O RDBECKIE Performing Organization Address City/[facility]/ZIP Co de Phone Number [facility] [address] * POC, GLUCOSE (06/20/2024 7:16 PM EST) [...] TEST Abimael MAHER Performing Organization Address [facility] Co de Phone Number [facility] [address] * POC, GLUCOSE (06/20/2024 3:39 PM EST) [...] CARE TEST O NIKA Performing Organization Address City/[facility]/ZIP Co de Phone Number [facility] [place] [address] * POC, GLUCOSE (06/20/2024 12:02 PM EST) Glucometer, POC 173 65 - 199 mg/dL 06/20/2024 12:03 PM EST [facility] Comment:Supplemental ranges: <140 mg/dL before meals <180 mg/dL all other times of the day. Blood CAPILLARY BLOOD / Unknown 06/20/2024 12:02 PM EST 06/20/2024 12:03 PM EST Bobby Loja MD POINT OF CARE TEST Abimael MAHER Performing Organization Address [facility] Co de Phone Number [facility] [place] [address] * POC, GLUCOSE (06/20/2024 7:10 AM EST) Glucometer, POC 130 65 - 199 mg/dL 06/20/2024 7:11 AM [facility] Comment:Supplemental ranges: <140 mg/dL before meals <180 mg/dL all other times of the day. Blood CAPILLARY BLOOD / Unknown 06/20/2024 7:10 AM EST 06/20/2024 7:11 AM EST Bobby Loja MD POINT OF CARE TEST Abimael MAHER Performing Organization Address [facility] de Phone Number [facility] [address] * (ABNORMAL) Basic Metabolic Panel (06/20/2024 2:28 AM EST) Glucose 79 65 - 199 mg/dL 06/20/2024 3:06 AM [facility] Comment:Glucose Concentratio n >=200 mg/dL plus symptoms is consistent with Diabetes Mellitus. Blood Urea Nitrogen 38(H) 10 - 20 mg/dL 06/20/2024 3:06 AM [facility] Creatinine 1.39 0.80 - 1.50 mg/dL 06/20/2024 3:06 AM [facility] Sodium 137 135 - 145 mMol/L 06/20/2024 3:06 AM [facility] Potassium 3.6 3.5 - 5.0 mMol/L 06/20/2024 3:06 AM EST [facility] Chloride 100 98 - 107 mMol/L 06/20/2024 3:06 AM EST [facility] Carbon Dioxide 29 22 - 31 mMol/L 06/20/2024 3:06 AM EST [facility] Anion Gap 8 5 - 15 mMol/L 06/20/2024 3:06 AM [facility] Calcium 8.4(L) 8.5 - 10.5 mg/dL 06/20/2024 3:06 AM EST [facility] [...] EST Keila Hanley APRN CHEMISTRY ORDERABL ES [facility] [address] * POC, GLUCOSE (06/20/2024 12:32 AM EST) Glucometer, POC 86 65 - 199 mg/dL 06/20/2024 12:32 AM EST [facility] Comment:Supplemental ranges: <140 mg/dL before meals <180 mg/dL all other times of the day. Blood CAPILLARY BLOOD / Unknown 06/20/2024 12:32 AM EST 06/20/2024 12:32 AM EST Bobby Loja MD POINT OF CARE TEST O NIKA Performing Organization Address City/[facility]/ZIP Co de Phone Number [facility] [place] [address] * (ABNORMAL) POC, GLUCOSE (06/20/2024 12:02 AM [...] TEST O NIKA Performing Organization Address [facility] Co de Phone Number [facility] [place] [address] * POC, GLUCOSE (06/19/2024 8:15 PM EST) Glucometer, POC 131 65 - 199 mg/dL 06/19/2024 8:15 PM EST [facility] Comment:Supplemental ranges: <140 mg/dL before meals <180 mg/dL all other times of the day. Blood CAPILLARY BLOOD / Unknown 06/19/2024 8:15 PM EST 06/19/2024 8:15 PM EST Bobby Loja MD POINT OF CARE TEST O NIKA Performing Organization Address City/[facility]/ZIP Co de Phone Number [facility] [place] [address] * POC, GLUCOSE (06/19/2024 6:01 PM EST) [...] CARE TEST O RDBECKIE Performing Organization Address City/[facility] Co de Phone Number [facility] [place] [address] * POC, GLUCOSE (06/19/2024 4:51 PM EST) [...] TEST O NIKA Performing Organization Address [facility] Co de Phone Number [facility] [place] [address] * POC, GLUCOSE (06/19/2024 12:37 PM EST) [...] CARE TEST O NIKA Performing Organization Address City/[facility] Co de Phone Number [facility] [address] * POC, GLUCOSE (06/19/2024 11:20 AM EST) Glucometer, POC 185 65 - 199 mg/dL 06/19/2024 11:21 AM EST [facility] Comment:Supplemental ranges: <140 mg/dL before meals <180 mg/dL all other times of the day. Blood CAPILLARY BLOOD / Unknown 06/19/2024 11:20 AM EST 06/19/2024 11:21 AM EST Bobby Loja MD POINT OF CARE TEST O NIKA Performing Organization Address City/[facility]/ZIP Co de Phone Number [facility] [place] [address] * POC, GLUCOSE (06/19/2024 7:21 AM EST) Glucometer, POC 125 65 - 199 mg/dL 06/19/2024 7:21 AM EST [facility] Comment:Supplemental ranges: <140 mg/dL before meals <180 mg/dL all other times of the day. Blood CAPILLARY BLOOD / Unknown 06/19/2024 7:21 AM EST 06/19/2024 7:22 AM EST Bobby Loja MD POINT OF CARE TEST O NIKA Performing Organization Address [facility] Co de Phone Number [facility] [address] * POC, GLUCOSE (06/19/2024 4:52 AM EST) Glucometer, POC 125 65 - 199 mg/dL 06/19/2024 4:52 AM EST [facility] Comment:Supplemental ranges: <140 mg/dL before meals <180 mg/dL all other times of the day. Blood CAPILLARY BLOOD / Unknown 06/19/2024 4:52 AM EST 06/19/2024 4:52 AM EST Bobby Loja MD POINT OF CARE TEST O NIKA Performing Organization Address City/[facility]/ZIP Co de Phone Number [facility] [place] [address] * POC, GLUCOSE (06/19/2024 4:13 AM EST) Glucometer, POC 67 65 - 199 mg/dL 06/19/2024 4:13 AM EST [facility] Comment:Supplemental ranges: <140 mg/dL before meals <180 mg/dL all other times of the day. Blood CAPILLARY BLOOD / Unknown 06/19/2024 4:13 AM EST 06/19/2024 4:13 AM EST Bobby Loja MD POINT OF CARE TEST O NIKA Performing Organization Address [facility] Co de Phone Number [facility] [address] * (ABNORMAL) POC, GLUCOSE (06/19/2024 3:48 AM EST) Glucometer, POC 51(LLL) 65 - 199 mg/dL 06/19/2024 3:48 AM EST [facility] Comment:Supplemental ranges: <140 mg/dL before meals <180 mg/dL all other times of the day. Blood CAPILLARY BLOOD / Unknown 06/19/2024 3:48 AM EST 06/19/2024 3:48 AM EST Bobby Loja MD POINT OF CARE TEST O RDERAPIETER Performing Organization Address City/[facility]/ZIP Co de Phone Number [facility] [address] * (ABNORMAL) Basic Metabolic Panel (06/19/2024 3:44 AM EST) Glucose 53(LLL) 65 - 199 mg/dL 06/19/2024 4:48 AM EST [facility] Comment:Glucose Concentratio n >=200 mg/dL plus symptoms is consistent with Diabetes Mellitus. Blood Urea Nitrogen 42(H) 10 - 20 mg/dL 06/19/2024 4:48 AM EST [facility] Creatinine 1.29 0.80 - 1.50 mg/dL 06/19/2024 4:48 AM EST [facility] Sodium 138 135 - 145 mMol/L 06/19/2024 4:48 AM [facility] Potassium 3.6 3.5 - 5.0 mMol/L 06/19/2024 4:48 AM [facility] Chloride 100 98 - 107 mMol/L 06/19/2024 4:48 AM [facility] Carbon Dioxide 29 22 - 31 mMol/L 06/19/2024 4:48 AM [facility] Anion Gap 9 5 - 15 mMol/L 06/19/2024 4:48 AM [facility] Calcium 8.8 8.5 - 10.5 mg/dL 06/19/2024 4:48 AM [facility] Est Glomerular Filtration Rate - Male 61 mL/min/1. 73 m?? 06/19/2024 4:48 AM [facility] Comment: This [...] EST 06/19/2024 3:51 AM EST Keila Dayan PATTERN AND CHAIN MAKER CHEMISTRY ORDERABL ES [facility] [place] [address] * POC, GLUCOSE (06/19/2024 12:23 AM EST) Glucometer, POC 82 65 - 199 mg/dL 06/19/2024 12:23 AM [facility] Comment:Supplemental ranges: <140 mg/dL before meals <180 mg/dL all other times of the day. Blood CAPILLARY BLOOD / Unknown 06/19/2024 12:23 AM EST 06/19/2024 12:23 AM EST Narrative Authorizing Provider Result Saranya Loja MD POINT OF CARE TEST O NIKA Performing Organization Address City/[facility]/ZIP Co de Phone Number [facility] [address] * POC, GLUCOSE (06/18/2024 11:08 PM EST) Glucometer, POC 73 65 - 199 mg/dL 06/18/2024 11:08 PM EST [facility] Comment:Supplemental ranges: <140 mg/dL before meals <180 mg/dL all other times of the day. Blood CAPILLARY BLOOD / Unknown 06/18/2024 11:08 PM EST 06/18/2024 11:08 PM EST Bobby Loja MD POINT OF CARE TEST Abimael MAHER Performing Organization Address [facility] Co de Phone Number [facility] [place] [address] * POC, GLUCOSE (06/18/2024 7:32 PM EST) Glucometer, POC 167 65 - 199 mg/dL 06/18/2024 7:32 PM EST [facility] Comment:Supplemental ranges: <140 mg/dL before meals <180 mg/dL all other times of the day. Blood CAPILLARY BLOOD / Unknown 06/18/2024 7:32 PM EST 06/18/2024 7:32 PM EST Narrative Authorizing Provider Result Saranya Loja MD POINT OF CARE TEST O NIKA Performing Organization Address City/[facility]/ZIP Co de Phone Number [facility] [place] [address] * POC, GLUCOSE (06/18/2024 6:08 PM EST) [...] O NIKA [facility] [address] * POC, GLUCOSE (06/18/2024 4:17 PM EST) Glucometer, POC 144 65 - 199 mg/dL 06/18/2024 4:17 PM EST [facility] Comment:Supplemental ranges: <140 mg/dL before meals <180 mg/dL all other times of the day. Blood CAPILLARY BLOOD / Unknown 06/18/2024 4:17 PM EST 06/18/2024 4:17 PM EST Bobby Loja MD POINT OF CARE TEST O NIKA Performing Organization Address [facility]/ZIP Co de Phone Number [facility] [place] [address] * POC, GLUCOSE (06/18/2024 12:09 PM EST) [...] O NIKA [facility] [place] [address] * POC, GLUCOSE (06/18/2024 7:49 AM EST) [...] O RDERABLES [facility] [address] * (ABNORMAL) Basic Metabolic Panel (06/18/2024 4:19 AM EST) Glucose 103 65 - 199 mg/dL 06/18/2024 5:03 AM [facility] Comment:Glucose Concentratio n >=200 mg/dL plus symptoms is consistent with Diabetes Mellitus. Blood Urea Nitrogen 43(H) 10 - 20 mg/dL 06/18/2024 5:03 AM [facility] Creatinine 1.45 0.80 - 1.50 mg/dL 06/18/2024 5:03 AM [facility] Sodium 131(L) 135 - 145 mMol/L 06/18/2024 5:03 AM [facility] Potassium 4.2 3.5 - 5.0 mMol/L 06/18/2024 5:03 AM [facility] Chloride 97(L) 98 - 107 mMol/L 06/18/2024 5:03 AM [facility] Carbon Dioxide 25 22 - 31 mMol/L 06/18/2024 5:03 AM [facility] Anion Gap 9 5 - 15 mMol/L 06/18/2024 5:03 AM [facility] Calcium 8.5 8.5 - 10.5 mg/dL 06/18/2024 5:03 AM [facility] Est Glomerular Filtration Rate - Male 53 mL/min/1. 73 m?? 06/18/2024 5:03 AM EST [facility] [...] APRN CHEMISTRY ORDERABL ES Performing Organization Address City/[facility]/ZIP Co de Phone Number [facility] [address] * POC, GLUCOSE (06/18/2024 3:50 AM EST) [...] O RDERABLES [facility] [address] * POC, GLUCOSE (06/17/2024 11:10 PM EST) Glucometer, POC 92 65 - 199 mg/dL 06/17/2024 11:10 PM EST [facility] Comment:Supplemental ranges: <140 mg/dL before meals <180 mg/dL all other times of the day. Blood CAPILLARY BLOOD / Unknown 06/17/2024 11:10 PM EST 06/17/2024 11:10 PM EST Bobby Loja MD POINT OF CARE TEST O NIKA Performing Organization Address [facility] Co de Phone Number [facility] [place] [address] * POC, GLUCOSE (06/17/2024 7:54 PM EST) Glucometer, POC 126 65 - 199 mg/dL 06/17/2024 7:54 PM EST [facility] Comment:Supplemental ranges: <140 mg/dL before meals <180 mg/dL all other times of the day. Blood CAPILLARY BLOOD / Unknown 06/17/2024 7:54 PM EST 06/17/2024 7:54 PM EST Bobby Loja MD POINT OF CARE TEST O NIKA Performing Organization Address [facility] Co de Phone Number [facility] [address] * POC, GLUCOSE (06/17/2024 4:07 PM EST) [...] CARE TEST O NIKA Performing Organization Address City/[facility] [facility] Co de Phone Number [facility] [place] [address] * XR Chest PA & Lateral (Generic) (06/17/2024 1:46 PM EST) WORKSTATION ID [id number] RAD Anatomical Region Laterality Modality Chest N/A [...] questions please contact the health child care supervisor that requested your imaging first. ? Electronically signed by: Josselyn Spence MD, [facility] ([phone]), at 06/17/2024 4:49 PM Narrative 06/17/2024 4:49 [...] have questions please contactthe health child care supervisor that requested your imaging first. Electronically signed by: Josselyn Spence MD, [facility]([phone]), at 06/17/2024 4:49 PM Keila Hanley [employer] IMG DX ORDERABLES * (ABNORMAL) POC, GLUCOSE [...] CARE TEST O NIKA Performing Organization Address City/[facility]/ZIP Co de Phone Number [facility] [place] [address] * POC, GLUCOSE (06/17/2024 7:49 AM EST) [...] O NIKA [facility] [place] [address] * POC, GLUCOSE (06/17/2024 4:16 AM EST) Pathologist [facility] Glucometer, POC 139 65 - 199 mg/dL 06/17/2024 4:16 AM EST [facility] Comment:Supplemental ranges: <140 mg/dL before meals <180 mg/dL all other times of the day. Blood CAPILLARY BLOOD / Unknown 06/17/2024 4:16 AM EST 06/17/2024 4:17 AM EST Bobby Loja MD POINT OF CARE TEST O RDERABLES Performing Organization Address City/[facility]/ZIP Co de Phone Number [facility] [place] [address] * Lactate, Whole Blood (06/17/2024 2:39 AM EST) [facility] Lactate, Whole Blood 1.3 0.5 - 2.2 mmol/L 06/17/2024 2:46 AM EST [facility] Blood VENOUS BLOOD SPECIMEN / Unknown Venipuncture / Unknown 06/17/2024 2:39 AM EST 06/17/2024 2:43 AM EST Bobby Loja MD CHEMISTRY ORDERABLES [facility] [place] [address] * (ABNORMAL) Hemogram (06/17/2024 2:39 AM EST) [facility] White Blood Cell 13.53(H) 4.00 - 9.50 x10(3)/mc L 06/17/2024 2:53 AM EST [facility] Red Blood Cell 3.55(L) 4.58 - 5.54 x10(6)/mc L 06/17/2024 2:53 AM EST [facility] Hemoglobin 10.8(L) 13.7 - 16.5 g/dL 06/17/2024 2:53 AM EST [facility] Hematocrit 33.0(L) 40.5 - 48.5 % 06/17/2024 2:53 AM [facility] Mean Cell Volume 93.0 82.9 - 93.1 fL 06/17/2024 2:53 AM [facility] Mean Cell Hemoglobin 30.4 27.5 - 32.1 pg 06/17/2024 2:53 AM [facility] Mean Cell Hemoglobin Concentration 32.7 32.0 - 35.7 g/dL 06/17/2024 2:53 AM [facility] Platelet 101(L) 145 - 357 x10(3)/mc L 06/17/2024 2:53 AM [facility] Mean Platelet Volume 10.4 7.6 - 12.9 fL 06/17/2024 2:53 AM [facility] RDW Standard Deviation 48.4(H) 36.0 - 45.0 fL 06/17/2024 2:53 AM [facility] RDW coefficient of variation 14.1(H) 11.4 - 13.8 % 06/17/2024 2:53 AM [facility] NRBC% auto 0.0 % 06/17/2024 2:53 AM [facility] NRBC Absolute <0.01 <0.01 x10(3)/mc L 06/17/2024 2:53 AM [facility] Blood VENOUS BLOOD SPECIMEN / Unknown Venipuncture / Unknown 06/17/2024 2:39 AM EST 06/17/2024 2:43 AM EST Bobby Loja MD HEMATOLOGY ORDERABLE S [facility] [place] [address] * (ABNORMAL) Basic Metabolic Panel (06/17/2024 2:39 AM EST) Glucose 149 65 - 199 mg/dL 06/17/2024 3:14 AM [facility] Comment:Glucose Concentratio n >=200 mg/dL plus symptoms is consistent with Diabetes Mellitus. Blood Urea Nitrogen 42(H) 10 - 20 mg/dL 06/17/2024 3:14 AM [facility] Creatinine 1.52(H) 0.80 - 1.50 mg/dL 06/17/2024 3:14 AM [facility] Sodium 133(L) 135 - 145 mMol/L 06/17/2024 3:14 AM [facility] Potassium 4.5 3.5 - 5.0 mMol/L 06/17/2024 3:14 AM [facility] Chloride 101 98 - 107 mMol/L 06/17/2024 3:14 AM [facility] Carbon Dioxide 23 22 - 31 mMol/L 06/17/2024 3:14 AM [facility] Anion Gap 9 5 - 15 mMol/L 06/17/2024 3:14 AM [facility] Calcium 8.8 8.5 - 10.5 mg/dL 06/17/2024 3:14 AM [facility] Est Glomerular Filtration Rate - Male 50 mL/min/1. 73 m?? 06/17/2024 3:14 AM [facility] Comment: This [...] CHEMISTRY ORDERABLES [facility] [place] [address] * (ABNORMAL) POC, GLUCOSE (06/17/2024 12:13 AM EST) Glucometer, POC 211(H) 65 - 199 mg/dL 06/17/2024 12:13 AM EST [facility] Comment:Supplemental ranges: <140 mg/dL before meals <180 mg/dL all other times of the day. Blood CAPILLARY BLOOD / Unknown 06/17/2024 12:13 AM EST 06/17/2024 12:14 AM EST Bobby Loja MD POINT OF CARE TEST O NIKA Performing Organization Address [facility] Co de Phone Number [facility] [place] [address] * (ABNORMAL) POC, GLUCOSE (06/16/2024 7:22 PM [...] O NIKA [facility] [place] [address] * (ABNORMAL) POC, GLUCOSE (06/16/2024 6:14 PM [...] TEST O RDBECKIE Performing Organization Address [facility] Co de Phone Number [facility] [place] [address] * Lactate, Whole Blood (06/16/2024 6:14 PM EST) Lactate, Whole Blood 1.8 0.5 - 2.2 mmol/L 06/16/2024 6:27 PM EST [facility] Blood VENOUS BLOOD SPECIMEN / Unknown Venipuncture / Unknown 06/16/2024 6:14 PM EST 06/16/2024 6:25 PM EST Bobby Loja MD CHEMISTRY ORDERABLES Performing Organization Address [facility] Phone Number [facility] [place] [address] * (ABNORMAL) POC, GLUCOSE (06/16/2024 4:14 PM [...] TEST O NIKA Performing Organization Address [facility] Co de Phone Number [facility] [place] [address] * POC, GLUCOSE (06/16/2024 11:49 AM EST) [...] O RDERABLES [facility] [place] [address] * (ABNORMAL) Hemogram (06/16/2024 11:44 AM EST) White Blood Cell 17.91(H) 4.00 - 9.50 x10(3)/mc L 06/16/2024 12:25 PM EST [facility] Red Blood Cell 3.47(L) 4.58 - 5.54 x10(6)/mc L 06/16/2024 12:25 PM [facility] Hemoglobin 10.5(L) 13.7 - 16.5 g/dL 06/16/2024 12:25 PM [facility] Hematocrit 33.1(L) 40.5 - 48.5 % 06/16/2024 12:25 PM [facility] Mean Cell Volume 95.4(H) 82.9 - 93.1 fL 06/16/2024 12:25 PM [facility] Mean Cell Hemoglobin 30.3 27.5 - 32.1 pg 06/16/2024 12:25 PM [facility] Mean Cell Hemoglobin Concentration 31.7(L) 32.0 - 35.7 g/dL 06/16/2024 12:25 PM [facility] Platelet 101(L) 145 - 357 x10(3)/mc L 06/16/2024 12:25 PM [facility] Mean Platelet Volume 10.6 7.6 - 12.9 fL 06/16/2024 12:25 PM [facility] RDW Standard Deviation 49.5(H) 36.0 - 45.0 fL 06/16/2024 12:25 PM [facility] RDW coefficient of variation 14.2(H) 11.4 - 13.8 % 06/16/2024 12:25 PM EST [facility] NRBC% auto 0.0 % 06/16/2024 12:25 PM EST [facility] NRBC Absolute <0.01 <0.01 x10(3)/mc L 06/16/2024 12:25 PM EST [facility] Blood VENOUS BLOOD SPECIMEN / Unknown Venipuncture / Unknown 06/16/2024 11:44 AM EST 06/16/2024 12:03 PM EST Bobby Loja MD HEMATOLOGY ORDERABLE S Performing Organization Address [facility]/ZIP Co de Phone Number [facility] [place] [address] * Lactate, Whole Blood (06/16/2024 9:02 AM EST) Lactate, Whole Blood 1.8 0.5 - 2.2 mmol/L 06/16/2024 9:19 AM EST [facility] Blood VENOUS BLOOD SPECIMEN / Unknown Venipuncture / Unknown 06/16/2024 9:02 AM EST 06/16/2024 9:17 AM EST Bobby Loja MD CHEMISTRY ORDERABLES Performing Organization Address [facility] Co de Phone Number [facility] [place] [address] * POC, GLUCOSE (06/16/2024 7:44 AM EST) [...] O RDERABLES [facility] [place] [address] * POC, GLUCOSE (06/16/2024 4:01 AM EST) [...] O RDERAPIETER [facility] [place] [address] * (ABNORMAL) Basic Metabolic Panel (06/16/2024 2:23 AM EST) Glucose 177 65 - 199 mg/dL 06/16/2024 3:13 AM [facility] Comment:Glucose Concentratio n >=200 mg/dL plus symptoms is consistent with Diabetes Mellitus. Blood Urea Nitrogen 37(H) 10 - 20 mg/dL 06/16/2024 3:13 AM [facility] Creatinine 2.10(H) 0.80 - 1.50 mg/dL 06/16/2024 3:13 AM [facility] Sodium 132(L) 135 - 145 mMol/L 06/16/2024 3:13 AM [facility] Potassium 4.5 3.5 - 5.0 mMol/L 06/16/2024 3:13 AM [facility] Chloride 99 98 - 107 mMol/L 06/16/2024 3:13 AM [facility] Carbon Dioxide 22 22 - 31 mMol/L 06/16/2024 3:13 AM [facility] Anion Gap 11 5 - 15 mMol/L 06/16/2024 3:13 AM [facility] Calcium 9.0 8.5 - 10.5 mg/dL 06/16/2024 3:13 AM EST [facility] Est Glomerular Filtration Rate - Male 34 mL/min/1. 73 m?? 06/16/2024 3:13 AM EST [facility] [...] Loja MD CHEMISTRY ORDERABLES Performing Organization Address City/[facility]/ZIP Co de Phone Number [facility] [place] [address] * POC, GLUCOSE (06/16/2024 2:21 AM EST) Glucometer, POC 176 65 - 199 mg/dL 06/16/2024 2:31 AM EST [facility] Comment:Supplemental ranges: <140 mg/dL before meals <180 mg/dL all other times of the day. Blood CAPILLARY BLOOD / Unknown 06/16/2024 2:21 AM EST 06/16/2024 2:31 AM EST Bobby Loja MD POINT OF CARE TEST O RDERABLES Performing Organization Address City/[facility]/ZIP Co de Phone Number [facility] [place] [address] * (ABNORMAL) POC, GLUCOSE (06/16/2024 12:09 AM [...] TEST O NIKA Performing Organization Address [facility] Co de Phone Number [facility] [place] [address] * (ABNORMAL) POC, GLUCOSE (06/15/2024 10:07 PM [...] TEST O NIKA Performing Organization Address [facility] Co de Phone Number [facility] [place] [address] * (ABNORMAL) POC, GLUCOSE (06/15/2024 7:56 PM EST) Glucometer, POC 304(H) 65 - 199 mg/dL 06/15/2024 7:56 PM EST [facility] Comment:Supplemental ranges: <140 mg/dL before meals <180 mg/dL all other times of the day. Blood CAPILLARY BLOOD / Unknown 06/15/2024 7:56 PM EST 06/15/2024 7:56 PM EST Bobby Loja MD POINT OF CARE TEST Abimael MAHER Performing Organization Address City/[facility] Co de Phone Number [facility] [place] [address] * (ABNORMAL) POC, GLUCOSE (06/15/2024 7:52 PM EST) Glucometer, POC 288(H) 65 - 199 mg/dL 06/15/2024 7:52 PM EST [facility] Comment:Supplemental ranges: <140 mg/dL before meals <180 mg/dL all other times of the day. Blood CAPILLARY BLOOD / Unknown 06/15/2024 7:52 PM EST 06/15/2024 7:52 PM EST Bobby Loja MD POINT OF CARE TEST O NKIA Performing Organization Address City/[facility]/ZIP Co de Phone Number [facility] [place] [address] * POC, GLUCOSE (06/15/2024 4:21 PM EST) [...] O NIKA [facility] [place] [address] * POC, GLUCOSE (06/15/2024 3:27 PM EST) Glucometer, POC 155 65 - 199 mg/dL 06/15/2024 3:27 PM EST [facility] Comment:Supplemental ranges: <140 mg/dL before meals <180 mg/dL all other times of the day. Blood CAPILLARY BLOOD / Unknown 06/15/2024 3:27 PM EST 06/15/2024 3:27 PM EST Bobby Loja MD POINT OF CARE TEST O NIKA Performing Organization Address [facility] Co de Phone Number [facility] [place] [address] * POC, GLUCOSE (06/15/2024 2:23 PM EST) Glucometer, POC 160 65 - 199 mg/dL 06/15/2024 2:23 PM EST [facility] Comment:Supplemental ranges: <140 mg/dL before meals <180 mg/dL all other times of the day. Blood CAPILLARY BLOOD / Unknown 06/15/2024 2:23 PM EST 06/15/2024 2:23 PM EST Bobby Loja MD POINT OF CARE TEST O NIKA Performing Organization Address [facility] Co de Phone Number [facility] [place] [address] * POC, GLUCOSE (06/15/2024 1:26 PM EST) Glucometer, POC 167 65 - 199 mg/dL 06/15/2024 1:26 PM EST [facility] Comment:Supplemental ranges: <140 mg/dL before meals <180 mg/dL all other times of the day. Blood CAPILLARY BLOOD / Unknown 06/15/2024 1:26 PM EST 06/15/2024 1:26 PM EST Bobby Loja MD POINT OF CARE TEST O NIKA Performing Organization Address City/[facility] Co de Phone Number [facility] [place] [address] * (ABNORMAL) POC, GLUCOSE (06/15/2024 12:55 PM EST) Glucometer, POC 210(H) 65 - 199 mg/dL 06/15/2024 12:55 PM EST [facility] Comment:Supplemental ranges: <140 mg/dL before meals <180 mg/dL all other times of the day. Blood CAPILLARY BLOOD / Unknown 06/15/2024 12:55 PM EST 06/15/2024 12:55 PM EST Bobby Loja MD POINT OF CARE TEST Abimael MAHER Performing Organization Address City/[facility]/ZIP Co de Phone Number [facility] [place] [address] * (ABNORMAL) POC, GLUCOSE (06/15/2024 11:29 AM EST) Glucometer, POC 220(H) 65 - 199 mg/dL 06/15/2024 11:29 AM EST [facility] Comment:Supplemental ranges: <140 mg/dL before meals <180 mg/dL all other times of the day. Blood CAPILLARY BLOOD / Unknown 06/15/2024 11:29 AM EST 06/15/2024 11:29 AM EST Bobby Loja MD POINT OF CARE TEST Abimael MAHER Performing Organization Address City/[facility] Co de Phone Number [facility] [place] [address] * (ABNORMAL) Basic Metabolic Panel (06/15/2024 11:23 AM EST) Glucose 215(H) 65 - 199 mg/dL 06/15/2024 12:08 PM EST [facility] Comment:Glucose Concentratio n >=200 mg/dL plus symptoms is consistent with Diabetes Mellitus. Blood Urea Nitrogen 24(H) 10 - 20 mg/dL 06/15/2024 12:08 PM [facility] Creatinine 1.54(H) 0.80 - 1.50 mg/dL 06/15/2024 12:08 PM EST [facility] Sodium 135 135 - 145 mMol/L 06/15/2024 12:08 PM [facility] Potassium 4.5 3.5 - 5.0 mMol/L 06/15/2024 12:08 PM [facility] Chloride 105 98 - 107 mMol/L 06/15/2024 12:08 PM [facility] Carbon Dioxide 19(L) 22 - 31 mMol/L 06/15/2024 12:08 PM EST [facility] Anion Gap 11 5 - 15 mMol/L 06/15/2024 12:08 PM EST [facility] Calcium 8.3(L) 8.5 - 10.5 mg/dL 06/15/2024 12:08 PM EST [facility] Est Glomerular Filtration Rate - Male 49 mL/min/1. 73 m?? 06/15/2024 12:08 PM EST [facility] [...] Loja MD CHEMISTRY ORDERABLES Performing Organization Address City/[facility]/ZIP Co de Phone Number [facility] [place] [address] * POC, GLUCOSE (06/15/2024 10:29 AM EST) [facility] Signature Glucometer, POC 189 65 - 199 mg/dL 06/15/2024 10:29 AM EST [facility] Comment:Supplemental ranges: <140 mg/dL before meals <180 mg/dL all other times of the day. Blood CAPILLARY BLOOD / Unknown 06/15/2024 10:29 AM EST 06/15/2024 10:29 AM EST Bobby Loja MD POINT OF CARE TEST O RDERABLES [facility] [place] [address] * POC, GLUCOSE (06/15/2024 9:45 AM EST) Glucometer, POC 178 65 - 199 mg/dL 06/15/2024 9:45 AM [facility] Comment:Supplemental ranges: <140 mg/dL before meals <180 mg/dL all other times of the day. Blood CAPILLARY BLOOD / Unknown 06/15/2024 9:45 AM EST 06/15/2024 9:45 AM EST Bobby Loja MD POINT OF CARE TEST Abimael MAHER Performing Organization Address City/[facility]/ZIP Co de Phone Number [facility] [place] [address] * (ABNORMAL) Cooximetry, POC (06/15/2024 9:31 AM EST) pO2, Coox 38 mmHg 06/15/2024 9:34 AM [facility] Hemoglobin, Coox 12.9(L) 13.7 - 16.5 g/dL 06/15/2024 9:34 AM [facility] Oxyhemoglobin, Coox 72.1 % 06/15/2024 9:34 AM [facility] Carboxyhemoglo bin, Coox 0.9 % 06/15/2024 9:34 AM [facility] Comment: Nonsmokers: 0.5-1.5% COHB ?? Smokers: Variable ??but usually less than 10% ?? Toxic: 20-30% COHB ?? Lethal: Greater than 60% COHB Methemoglobin, Coox 0.3 <=1.5 % 06/15/2024 9:34 AM [facility] Blood (Mixed Venous) 06/15/2024 9:31 AM EST 06/15/2024 9:34 AM EST Bobby Loja MD POINT OF CARE TEST O RDERABLES Performing Organization Address [facility]/ZIP Co de Phone Number [facility] [place] [address] * Cooximetry, POC (06/15/2024 9:22 AM EST) pO2, Coox 30 mmHg 06/15/2024 9:25 AM [facility] Hemoglobin, Coox 06/15/2024 9:25 AM [facility] Comment:QUES Oxyhemoglobin, Coox 06/15/2024 9:25 AM [facility] Comment:QUES Carboxyhemoglo bin, Coox 06/15/2024 9:25 AM [facility] Comment:QUES Methemoglobin, Coox 06/15/2024 9:25 AM [facility] Comment:QUES Blood (Mixed Venous) 06/15/2024 9:22 AM EST 06/15/2024 9:25 AM EST Bobby Loja MD POINT OF CARE TEST O RDERABLES Performing Organization Address [facility] Co de Phone Number [facility] [place] [address] * (ABNORMAL) Blood Gas, Arterial POC (06/15/2024 9:19 AM EST) pH, Arterial 7.31(L) 7.35 - 7.45 06/15/2024 9:21 AM [facility] PCO2, Arterial 36 35 - 45 mmHg 06/15/2024 9:21 AM [facility] PO2, Arterial 94 85 - 104 mmHg 06/15/2024 9:21 AM [facility] Bicarbonate, Arterial 18.0(L) 20.0 - 26.0 mmol/L 06/15/2024 9:21 AM [facility] Base Excess, Arterial -8.2(L) -3.0 - 3.0 mmol/L 06/15/2024 9:21 AM [facility] Hemoglobin, Arterial 12.7(L) 13.7 - 16.5 g/dL 06/15/2024 9:21 AM [facility] Oxyhemoglobin, Arterial 96.0 94.0 - 97.0 % 06/15/2024 9:21 AM [facility] Carboxyhemoglobin , Arterial 0.5 % 06/15/2024 9:21 AM [facility] Comment: Nonsmokers: 0.5-1.5% COHB ?? Smokers: Variable ??but usually less than 10% ?? Toxic: 20-30% COHB ?? Lethal: Greater than 60% COHB Methemoglobin, Arterial 0.3 <=1.5 % 06/15/2024 9:21 AM [facility] Sodium, Arterial 136 135 - 145 mmol/L 06/15/2024 9:21 AM [facility] Potassium, Arterial 4.0 3.5 - 5.0 mmol/L 06/15/2024 9:21 AM [facility] Chloride, Arterial 106 98 - 107 mmol/L 06/15/2024 9:21 AM [facility] Lactate, Arterial 1.7 0.5 - 2.2 mmol/L 06/15/2024 9:21 AM [facility] Flow Rate 2.0 L/min 06/15/2024 9:21 AM [facility] IONIZED CALCIUM, ARTERIAL 1.14(L) 1.15 - 1.33 mmol/L 06/15/2024 9:21 AM [facility] Glucose, Arterial 193 65 - 199 mg/dL 06/15/2024 9:21 AM [facility] Comment:Glucose Concentratio n >=200 mg/dL plus symptoms is consistent with Diabetes Mellitus. Blood ARTERIAL BLOOD / Unknown 06/15/2024 9:19 AM EST 06/15/2024 9:20 AM EST Bobby Loja MD POINT OF CARE TEST O RDERABLES [facility] [place] [address] * (ABNORMAL) POC, GLUCOSE (06/15/2024 8:37 AM EST) Glucometer, POC 204(H) 65 - 199 mg/dL 06/15/2024 8:37 AM EST [facility] Comment:Supplemental ranges: <140 mg/dL before meals <180 mg/dL all other times of the day. Blood CAPILLARY BLOOD / Unknown 06/15/2024 8:37 AM EST 06/15/2024 8:37 AM EST Bobby Loja MD POINT OF CARE TEST O NIKA Performing Organization Address City/[facility]/ZIP Co de Phone Number [facility] [place] [address] * POC, GLUCOSE (06/15/2024 7:37 AM EST) Glucometer, POC 199 65 - 199 mg/dL 06/15/2024 7:37 AM EST [facility] Comment:Supplemental ranges: <140 mg/dL before meals <180 mg/dL all other times of the day. Blood CAPILLARY BLOOD / Unknown 06/15/2024 7:37 AM EST 06/15/2024 7:38 AM EST Bobby Loja MD POINT OF CARE TEST Abimael MAHER Performing Organization Address City/[facility]/ZIP Co de Phone Number [facility] [place] [address] * (ABNORMAL) POC, GLUCOSE (06/15/2024 7:01 AM EST) Glucometer, POC 203(H) 65 - 199 mg/dL 06/15/2024 7:01 AM EST [facility] Comment:Supplemental ranges: <140 mg/dL before meals <180 mg/dL all other times of the day. Blood CAPILLARY BLOOD / Unknown 06/15/2024 7:01 AM EST 06/15/2024 7:01 AM EST Bobby Loja MD POINT OF CARE TEST O RDERABLES [facility] [place] [address] * XR Chest One View (06/15/2024 6:31 AM EST) WORKSTATION ID [id number] RAD Anatomical Region Laterality Modality Chest N/A [...] questions please contact the health child care supervisor that requested your imaging first. ? Narrative [...] have questions please contactthe health child care supervisor that requested your imaging first. Electronically signed by: Stuart Aponte MD, [facility]([phone]), at 06/15/2024 10:38 AM Bobby Loja MD [...] O RDERABLES [facility] [place] [address] * POC, GLUCOSE (06/15/2024 5:06 AM EST) Glucometer, POC 160 65 - 199 mg/dL 06/15/2024 5:06 AM EST [facility] Comment:Supplemental ranges: <140 mg/dL before meals <180 mg/dL all other times of the day. Blood CAPILLARY BLOOD / Unknown 06/15/2024 5:06 AM EST 06/15/2024 5:06 AM EST Bobby Loja MD POINT OF CARE TEST O RDERABLES Performing Organization Address [facility] Co de Phone Number [facility] [place] [address] * POC, GLUCOSE (06/15/2024 4:05 AM EST) Glucometer, POC 160 65 - 199 mg/dL 06/15/2024 4:06 AM EST [facility] [facility] Comment:Supplemental ranges: <140 mg/dL before meals <180 mg/dL all other times of the day. Blood CAPILLARY BLOOD / Unknown 06/15/2024 4:05 AM EST 06/15/2024 4:06 AM EST Bobby Loja MD POINT OF CARE TEST O NIKA Performing Organization Address [facility] Co de Phone Number [facility] [place] [address] * POC, GLUCOSE (06/15/2024 3:07 AM EST) Glucometer, POC 151 65 - 199 mg/dL 06/15/2024 3:07 AM EST [facility] Comment:Supplemental ranges: <140 mg/dL before meals <180 mg/dL all other times of the day. Blood CAPILLARY BLOOD / Unknown 06/15/2024 3:07 AM EST 06/15/2024 3:07 AM EST Bobby Loja MD POINT OF CARE TEST O NIKA Performing Organization Address [facility] Co de Phone Number [facility] [place] [address] * (ABNORMAL) Basic Metabolic Panel (06/15/2024 1:48 AM EST) Glucose 140 65 - 199 mg/dL 06/15/2024 2:38 AM EST [facility] Comment:Glucose Concentratio n >=200 mg/dL plus symptoms is consistent with Diabetes Mellitus. Blood Urea Nitrogen 21(H) 10 - 20 mg/dL 06/15/2024 2:38 AM [facility] Creatinine 1.27 0.80 - 1.50 mg/dL 06/15/2024 2:38 AM [facility] Sodium 140 135 - 145 mMol/L 06/15/2024 2:38 AM [facility] Potassium 4.4 3.5 - 5.0 mMol/L 06/15/2024 2:38 AM [facility] Chloride 108(H) 98 - 107 mMol/L 06/15/2024 2:38 AM [facility] Carbon Dioxide 23 22 - 31 mMol/L 06/15/2024 2:38 AM [facility] Anion Gap 9 5 - 15 mMol/L 06/15/2024 2:38 AM [facility] Calcium 8.3(L) 8.5 - 10.5 mg/dL 06/15/2024 2:38 AM [facility] Est Glomerular Filtration Rate - Male 62 mL/min/1. 73 m?? 06/15/2024 2:38 AM [facility] Comment: This [...] CHEMISTRY ORDERABLES [facility] [place] [address] * (ABNORMAL) CBC (with Diff) (06/15/2024 1:48 AM EST) White Blood Cell 11.71(H) 4.00 - 9.50 x10(3)/mc L 06/15/2024 2:13 AM [facility] Red Blood Cell 4.14(L) 4.58 - 5.54 x10(6)/mc L 06/15/2024 2:13 AM [facility] Hemoglobin 12.5(L) 13.7 - 16.5 g/dL 06/15/2024 2:13 AM [facility] Hematocrit 38.4(L) 40.5 - 48.5 % 06/15/2024 2:13 AM [facility] Mean Cell Volume 92.8 82.9 - 93.1 fL 06/15/2024 2:13 AM [facility] Mean Cell Hemoglobin 30.2 27.5 - 32.1 pg 06/15/2024 2:13 AM [facility] Mean Cell Hemoglobin Concentration 32.6 32.0 - 35.7 g/dL 06/15/2024 2:13 AM [facility] Platelet 101(L) 145 - 357 x10(3)/mc L 06/15/2024 2:13 AM [facility] Mean Platelet Volume 10.0 7.6 - 12.9 fL 06/15/2024 2:13 AM [facility] RDW Standard Deviation 48.8(H) 36.0 - 45.0 fL 06/15/2024 2:13 AM [facility] RDW coefficient of variation 14.2(H) 11.4 - 13.8 % 06/15/2024 2:13 AM [facility] NRBC% auto 0.0 % 06/15/2024 2:13 AM [facility] NRBC Absolute <0.01 <0.01 x10(3)/mc L 06/15/2024 2:13 AM [facility] Neutrophil % 79.7 % 06/15/2024 2:13 AM [facility] Neutrophil Absolute (ANC) - Automated 9.34(H) 1.70 - 6.10 x10(3)/mc L 06/15/2024 2:13 AM [facility] Lymph % 8.0 % 06/15/2024 2:13 AM [facility] Lymph Absolute 0.94 0.90 - 3.20 x10(3)/mc L 06/15/2024 2:13 AM EST [facility] Monocyte % 11.4 % 06/15/2024 2:13 AM [facility] Monocyte Absolute 1.33(H) 0.30 - 0.90 x10(3)/mc L 06/15/2024 2:13 AM [facility] Eos % 0.2 % 06/15/2024 2:13 AM [facility] Eos Absolute <0.04 0.00 - 0.40 x10(3)/mc L 06/15/2024 2:13 AM [facility] Basophil % 0.2 % 06/15/2024 2:13 AM [facility] Baso Absolute <0.04 0.00 - 0.10 x10(3)/mc L 06/15/2024 2:13 AM EST [facility] Immature Gran % 0.5 % 2:13 AM [facility] Immature Gran Absolute 0.06(H) 0.00 - 0.04 x10(3)/mc L 06/15/2024 2:13 AM EST [facility] Blood VENOUS BLOOD SPECIMEN / Unknown Venipuncture / Unknown 06/15/2024 1:48 AM EST 06/15/2024 1:52 AM EST Bobby Loja MD HEMATOLOGY ORDERABLE S [facility] [place] [address] * (ABNORMAL) Troponin - Single (06/15/2024 1:48 [...] [facility] Test Catalog Troponin - [email or web address] Reference: Fourth [place] Definition of Myocardial Infarction. Journal of the [place] [employer] 2018;72:9974-0961 Blood VENOUS BLOOD SPECIMEN / Unknown Venipuncture / Unknown 06/15/2024 1:48 AM EST 06/15/2024 1:52 AM EST Bobby Loja MD CHEMISTRY ORDERABLES [facility] [place] [address] * (ABNORMAL) Blood Gas, Arterial POC (06/15/2024 1:46 AM EST) pH, Arterial 7.33(L) 7.35 - 7.45 06/15/2024 1:47 AM EST [facility] PCO2, Arterial 40 35 - 45 mmHg 06/15/2024 1:47 AM [facility] PO2, Arterial 131(H) 85 - 104 mmHg 06/15/2024 1:47 AM [facility] Bicarbonate, Arterial 20.7 20.0 - 26.0 mmol/L 06/15/2024 1:47 AM [facility] Base Excess, Arterial -5.2(L) -3.0 - 3.0 mmol/L 06/15/2024 1:47 AM [facility] Hemoglobin, Arterial 13.4(L) 13.7 - 16.5 g/dL 06/15/2024 1:47 AM [facility] Oxyhemoglobin, Arterial 97.9(H) 94.0 - 97.0 % 06/15/2024 1:47 AM [facility] Carboxyhemoglobin , Arterial 0.5 % 06/15/2024 1:47 AM [facility] Comment: Nonsmokers: 0.5-1.5% COHB ?? Smokers: Variable ??but usually less than 10% ?? Toxic: 20-30% COHB ?? Lethal: Greater than 60% COHB Methemoglobin, Arterial 0.3 <=1.5 % 06/15/2024 1:47 AM [facility] Sodium, Arterial 139 135 - 145 mmol/L 06/15/2024 1:47 AM [facility] Potassium, Arterial 4.2 3.5 - 5.0 mmol/L 06/15/2024 1:47 AM [facility] Chloride, Arterial 107 98 - 107 mmol/L 06/15/2024 1:47 AM [facility] Lactate, Arterial 1.8 0.5 - 2.2 mmol/L 06/15/2024 1:47 AM [facility] Fraction of Inspired Oxygen 40 % 06/15/2024 1:47 AM [facility] PF Ratio 328 Ratio 06/15/2024 1:47 AM [facility] Comment:PF ratio calculated using the non-temperature corrected pO2 result. IONIZED CALCIUM, ARTERIAL 1.17 1.15 - 1.33 mmol/L 06/15/2024 1:47 AM EST [facility] Glucose, Arterial 127 65 - 199 mg/dL 06/15/2024 1:47 AM EST [facility] Comment:Glucose Concentratio n >=200 mg/dL plus symptoms is consistent with Diabetes Mellitus. Blood ARTERIAL BLOOD / Unknown 06/15/2024 1:46 AM EST 06/15/2024 1:47 AM EST Bobby Loja MD POINT OF CARE TEST O RDERAPIETER Performing Organization Address [facility] Co de Phone Number [facility] [place] [address] * POC, GLUCOSE (06/15/2024 1:05 AM EST) Glucometer, POC 116 65 - 199 mg/dL 06/15/2024 1:05 AM EST [facility] Comment:Supplemental ranges: <140 mg/dL before meals <180 mg/dL all other times of the day. Blood CAPILLARY BLOOD / Unknown 06/15/2024 1:05 AM EST 06/15/2024 1:05 AM EST Bobby Loja MD POINT OF CARE TEST O RDERAPIETER Performing Organization Address [facility] Co de Phone Number [facility] [place] [address] * POC, GLUCOSE (06/15/2024 12:16 AM EST) [...] O RDERAPIETER [facility] [place] [address] * Potassium (06/14/2024 11:28 PM EST) Potassium 4.1 3.5 - 5.0 mMol/L 06/14/2024 11:54 PM EST [facility] Blood VENOUS BLOOD SPECIMEN / Unknown Venipuncture / Unknown 06/14/2024 11:28 PM EST 06/14/2024 11:34 PM EST Bobby Loja MD CHEMISTRY ORDERABLES Performing Organization Address [facility] Co de Phone Number [facility] [place] [address] * POC, GLUCOSE (06/14/2024 10:58 PM EST) [...] TEST O RDERABLES Performing Organization Address [facility] Co de Phone Number [facility] [place] [address] * POC, GLUCOSE (06/14/2024 9:55 PM EST) [...] TEST O RDERABLES Performing Organization Address City/State/[facility] Co de Phone Number [facility] [place] [address] * POC, GLUCOSE (06/14/2024 8:54 PM EST) Glucometer, POC 151 65 - 199 mg/dL 06/14/2024 8:54 PM EST [facility] Comment:Supplemental ranges: <140 mg/dL before meals <180 mg/dL all other times of the day. Blood CAPILLARY BLOOD / Unknown 06/14/2024 8:54 PM EST 06/14/2024 8:54 PM EST Bobby Loja MD POINT OF CARE TEST O NIKA Performing Organization Address [facility] Co de Phone Number [facility] [place] [address] * POC, GLUCOSE (06/14/2024 7:51 PM EST) Glucometer, POC 169 65 - 199 mg/dL 06/14/2024 7:52 PM EST [facility] Comment:Supplemental ranges: <140 mg/dL before meals <180 mg/dL all other times of the day. Blood CAPILLARY BLOOD / Unknown 06/14/2024 7:51 PM EST 06/14/2024 7:52 PM EST Bobby Loja MD POINT OF CARE TEST O RDBECKIE Performing Organization Address City/[facility] Co de Phone Number [facility] [place] [address] * POC, GLUCOSE (06/14/2024 6:49 PM EST) Glucometer, POC 194 65 - 199 mg/dL 06/14/2024 6:50 PM EST [facility] Comment:Supplemental ranges: <140 mg/dL before meals <180 mg/dL all other times of the day. Blood CAPILLARY BLOOD / Unknown 06/14/2024 6:49 PM EST 06/14/2024 6:50 PM EST Bobby Loja MD POINT OF CARE TEST O RDERABLES Performing Organization Address City/[facility]/ZIP Co de Phone Number [facility] [place] [address] * (ABNORMAL) Hemoglobin (06/14/2024 6:19 PM EST) Hemoglobin 13.1(L) 13.7 - 16.5 g/dL 06/14/2024 7:08 PM EST [facility] Blood VENOUS BLOOD SPECIMEN / Unknown Venipuncture / Unknown 06/14/2024 6:19 PM EST 06/14/2024 6:28 PM EST Bobby Loja MD HEMATOLOGY ORDERABLE S Performing Organization Address [facility] Co de Phone Number [facility] [place] [address] * Potassium (06/14/2024 6:19 PM EST) Potassium 3.9 3.5 - 5.0 mMol/L 06/14/2024 6:52 PM EST [facility] Blood VENOUS BLOOD SPECIMEN / Unknown Venipuncture / Unknown 06/14/2024 6:19 PM EST 06/14/2024 6:28 PM EST Bobby Loja MD CHEMISTRY ORDERABLES Performing Organization Address City/[facility]/ZIP Co de Phone Number [facility] [place] [address] * (ABNORMAL) POC, GLUCOSE (06/14/2024 6:03 PM [...] O RDERABLES [facility] [place] [address] * (ABNORMAL) Blood Gas, Arterial POC (06/14/2024 4:51 PM EST) pH, Arterial 7.32(L) 7.35 - 7.45 06/14/2024 4:52 PM EST [facility] PCO2, Arterial 46(H) 35 - 45 mmHg 06/14/2024 4:52 PM [facility] PO2, Arterial 85 85 - 104 mmHg 06/14/2024 4:52 PM [facility] Bicarbonate, Arterial 23.1 20.0 - 26.0 mmol/L 06/14/2024 4:52 PM [facility] Base Excess, Arterial -3.1(L) -3.0 - 3.0 mmol/L 06/14/2024 4:52 PM [facility] Hemoglobin, Arterial 14.3 13.7 - 16.5 g/dL 06/14/2024 4:52 PM [facility] Oxyhemoglobin, Arterial 94.7 94.0 - 97.0 % 06/14/2024 4:52 PM [facility] Carboxyhemoglobin , Arterial 0.6 % 06/14/2024 4:52 PM [facility] Comment: Nonsmokers: 0.5-1.5% COHB ?? Smokers: Variable ??but usually less than 10% ?? Toxic: 20-30% COHB ?? Lethal: Greater than 60% COHB Methemoglobin, Arterial 0.0 <=1.5 % 06/14/2024 4:52 PM EST [facility] Sodium, Arterial 138 135 - 145 mmol/L 06/14/2024 4:52 PM [facility] Potassium, Arterial 4.1 3.5 - 5.0 mmol/L 06/14/2024 4:52 PM [facility] Chloride, Arterial 106 98 - 107 mmol/L 06/14/2024 4:52 PM EST [facility] Lactate, Arterial 1.3 0.5 - 2.2 mmol/L 06/14/2024 4:52 PM [facility] Fraction of Inspired Oxygen 40 % 06/14/2024 4:52 PM [facility] PF Ratio 213 Ratio 06/14/2024 4:52 PM [facility] Comment:PF ratio calculated using the non-temperature corrected pO2 result. IONIZED CALCIUM, ARTERIAL 1.16 1.15 - 1.33 mmol/L 06/14/2024 4:52 PM [facility] Glucose, Arterial 192 65 - 199 mg/dL 06/14/2024 4:52 PM [facility] Comment:Glucose Concentratio n >=200 mg/dL plus symptoms is consistent with Diabetes Mellitus. Blood ARTERIAL BLOOD / Unknown 06/14/2024 4:51 PM EST 06/14/2024 4:52 PM EST Bobby Loja MD POINT [place] [address] * POC, GLUCOSE (06/14/2024 4:00 PM EST) Glucometer, POC 184 65 - 199 mg/dL 06/14/2024 4:01 PM EST [facility] Comment:Supplemental ranges: <140 mg/dL before meals <180 mg/dL all other times of the day. Blood CAPILLARY BLOOD / Unknown 06/14/2024 4:00 PM EST 06/14/2024 4:01 PM EST Bobby Loja MD POINT OF CARE TEST O RALPHERAPIETER [facility] [place] [address] * XR Chest One View (06/14/2024 3:05 PM EST) WORKSTATION ID [id number] RAD Anatomical Region Laterality Modality Chest N/A [...] questions please contact the health child care supervisor that requested your imaging first. ? Electronically signed by: Stuart Aponte MD, [facility] ??([phone]), at 06/14/2024 4:07 PM Narrative 06/14/2024 4:07 [...] have questions please contactthe health child care supervisor that requested your imaging first. Electronically signed by: Stuart Aponte MD, [facility]([phone]), at 06/14/2024 4:07 PM Bobby Loja MD IMG DX ORDERABLES * (ABNORMAL) Blood Gas, Arterial POC (06/14/2024 2:52 PM EST) pH, Arterial 7.28(LLL) 7.35 - 7.45 06/14/2024 2:53 PM [facility] PCO2, Arterial 50(H) 35 - 45 mmHg 06/14/2024 2:53 PM [facility] PO2, Arterial 510(H) 85 - 104 mmHg 06/14/2024 2:53 PM [facility] Bicarbonate, Arterial 22.8 20.0 - 26.0 mmol/L 06/14/2024 2:53 PM [facility] Base Excess, Arterial -4.0(L) -3.0 - 3.0 mmol/L 06/14/2024 2:53 PM [facility] Hemoglobin, Arterial 13.8 13.7 - 16.5 g/dL 06/14/2024 2:53 PM [facility] Oxyhemoglobin, Arterial 99.3(H) 94.0 - 97.0 % 06/14/2024 2:53 PM [facility] Carboxyhemoglobin , Arterial 0.6 % 06/14/2024 2:53 PM [facility] Comment: Nonsmokers: 0.5-1.5% COHB ?? Smokers: Variable ??but usually less than 10% ?? Toxic: 20-30% COHB ?? Lethal: Greater than 60% COHB Methemoglobin, Arterial 0.1 <=1.5 % 06/14/2024 2:53 PM [facility] Sodium, Arterial 138 135 - 145 mmol/L 06/14/2024 2:53 PM [facility] Potassium, Arterial 4.2 3.5 - 5.0 mmol/L 06/14/2024 2:53 PM [facility] Chloride, Arterial 106 98 - 107 mmol/L 06/14/2024 2:53 PM [facility] Lactate, Arterial 1.1 0.5 - 2.2 mmol/L 06/14/2024 2:53 PM [facility] Fraction of Inspired Oxygen 100 % 06/14/2024 2:53 PM [facility] PF Ratio 510 Ratio 06/14/2024 2:53 PM [facility] Comment:PF ratio calculated using the non-temperature corrected pO2 result. IONIZED CALCIUM, ARTERIAL 1.15 1.15 - 1.33 mmol/L 06/14/2024 2:53 PM [facility] Glucose, Arterial 169 65 - 199 mg/dL 06/14/2024 2:53 PM [facility] Comment:Glucose Concentratio n >=200 mg/dL plus symptoms is consistent with Diabetes Mellitus. Blood ARTERIAL BLOOD / Unknown 06/14/2024 2:52 PM EST 06/14/2024 2:53 PM EST Bobby Loja MD POINT OF CARE TEST O RDERABLES [facility] [place] [address] * EKG 12 Lead (06/14/2024 2:46 PM EST) Ventricular rate 80 BPM MUSE SYSTEM Atrial Rate 80 BPM MUSE SYSTEM P-R Interval 120 ms MUSE SYSTEM QRS Duration 108 ms MUSE SYSTEM Q-T Interval 454 ms MUSE SYSTEM QTC Calculated (Bezet) 523 ms MUSE SYSTEM Calculated P [place] 70 degrees MUSE SYSTEM Calculated R [place] 56 degrees MUSE SYSTEM Calculated T [place] 50 degrees MUSE SYSTEM INTERPRETATION AV dual-paced rhythm Abnormal ECG When compared with ECG of 03-JUN-2024 01:45, Vent. rate has increased BY ??17 BPM Confirmed by MD Marisol, Shaheen ([id number]) on 06/15/2024 1:57:23 PM MUSE SYSTEM 06/14/2024 2:46 PM EST 06/15/2024 1:57 PM EST Bobby Loja MD ECG ORDERABLES MUSE SYSTEM * Prepare RBC (06/14/2024 2:27 PM EST) Status Information Returned [facility] Product Identification RBC [facility] Unit Number [id number] [facility] Product Code [id number] [facility] Unit Blood Type OPOS [facility] Specimen Expiration Date [facility] Volulme 350 [facility] Issue Date / Time [facility] Status Information Returned [facility] Product Identification RBC [facility] Unit Number [id number] [facility] Product Code [id number] [facility] Unit Blood Type OPOS [facility] Specimen Expiration Date [facility] Volulme 350 [facility] Issue Date / Time [facility] Blood 06/14/2024 6:2 5 AM EST Haja Byrnes MD BLOOD BANK PRODUCT O RDERABLES [facility] [place] [place] [address] * (ABNORMAL) Cooximetry, POC (06/14/2024 1:52 PM EST) pO2, Coox 58 mmHg 06/14/2024 1:55 PM EST [facility] Hemoglobin, Coox 12.6(L) 13.7 - 16.5 g/dL 06/14/2024 1:55 PM EST [facility] Oxyhemoglobin, Coox 85.5 % 06/14/2024 1:55 PM EST [facility] Carboxyhemoglo bin, Coox 0.3 % 06/14/2024 1:55 PM EST [facility] Comment: Nonsmokers: 0.5-1.5% COHB ?? Smokers: Variable ??but usually less than 10% ?? Toxic: 20-30% COHB ?? Lethal: Greater than 60% COHB Methemoglobin, Coox 0.6 <=1.5 % 06/14/2024 1:55 PM EST [facility] Blood (Mixed Venous) 06/14/2024 1:52 PM EST 06/14/2024 1:55 PM EST Haja Byrnes MD POINT OF CARE TEST O RDERABLES [facility] [place] [address] * (ABNORMAL) Blood Gas, Arterial POC (06/14/2024 12:47 PM EST) pH, Arterial 7.33(L) 7.35 - 7.45 06/14/2024 12:48 PM EST [facility] PCO2, Arterial 46(H) 35 - 45 mmHg 06/14/2024 12:48 PM [facility] PO2, Arterial 358(H) 85 - 104 mmHg 06/14/2024 12:48 PM [facility] Bicarbonate, Arterial 23.8 20.0 - 26.0 mmol/L 06/14/2024 12:48 PM [facility] Base Excess, Arterial -2.1 -3.0 - 3.0 mmol/L 06/14/2024 12:48 PM [facility] Hemoglobin, Arterial 11.7(L) 13.7 - 16.5 g/dL 06/14/2024 12:48 PM [facility] Oxyhemoglobin, Arterial 98.7(H) 94.0 - 97.0 % 06/14/2024 12:48 PM [facility] Carboxyhemoglobin , Arterial 0.3 % 06/14/2024 12:48 PM [facility] Comment: Nonsmokers: 0.5-1.5% COHB ?? Smokers: Variable ??but usually less than 10% ?? Toxic: 20-30% COHB ?? Lethal: Greater than 60% COHB Methemoglobin, Arterial 0.5 <=1.5 % 06/14/2024 12:48 PM [facility] Sodium, Arterial 135 135 - 145 mmol/L 06/14/2024 12:48 PM [facility] Potassium, Arterial 5.0 3.5 - 5.0 mmol/L 06/14/2024 12:48 PM [facility] Chloride, Arterial 106 98 - 107 mmol/L 06/14/2024 12:48 PM [facility] Lactate, Arterial 1.4 0.5 - 2.2 mmol/L 06/14/2024 12:48 PM [facility] IONIZED CALCIUM, ARTERIAL 1.09(L) 1.15 - 1.33 mmol/L 06/14/2024 12:48 PM [facility] Glucose, Arterial 157 65 - 199 mg/dL 06/14/2024 12:48 PM [facility] Comment:Glucose Concentratio n >=200 mg/dL plus symptoms is consistent with Diabetes Mellitus. Blood ARTERIAL BLOOD / Unknown 06/14/2024 12:47 PM EST 06/14/2024 12:48 PM EST Haja Byrnes MD POINT OF CARE TEST O RDERABLES Performing Organization Address City/[facility]/ZIP Co de Phone Number [facility] [place] [address] * (ABNORMAL) Cooximetry, POC (06/14/2024 12:42 PM [...] CARE TEST O RDERABLES Performing Organization Address City/[facility]/ZIP Co de Phone Number [facility] [place] [address] * (ABNORMAL) Platelet count (06/14/2024 12:30 PM EST) Platelet 73(L) 145 - 357 x10(3)/mcL 06/14/2024 12:54 PM EST [facility] Blood ARTERIAL BLOOD / Unknown 06/14/2024 12:30 PM EST Comment:Pre-op diagnosis: CAD Bobby Loja MD HEMATOLOGY ORDERABLE S Performing Organization Address [facility]/State/ZIP Co de Phone Number [facility] [place] [address] * (ABNORMAL) Hemoglobin and Hematocrit, blood (06/14/2024 [...] HEMATOLOGY ORDERABLE S Performing Organization Address [facility] Co de Phone Number [facility] [place] [address] * APTT (06/14/2024 12:30 PM EST) Partial [...] ORDERABLE S [facility] [place] [address] * (ABNORMAL) Prothrombin Time (06/14/2024 12:30 PM EST) Pathologist [facility] [place] Prothrombin Time 16.8(H) 9.4 - 12.5 sec [...] HEMATOLOGY ORDERABLE S Performing Organization Address [facility] Co de Phone Number [facility] [place] [address] * Fibrinogen (06/14/2024 12:30 PM EST) [facility] Fibrinogen 211 200 - 393 mg/dL 06/14/2024 12:57 PM EST [facility] Comment: A fibrinogen level >100 mg/dL is adequate for hemostasis in most patients without underlying bleeding disorders. Blood ARTERIAL BLOOD / Unknown 06/14/2024 12:30 PM EST 06/14/2024 12:42 PM EST Comment:Pre-op diagnosis: CAD Bobby Loja MD HEMATOLOGY ORDERABLE S [facility] [place] [address] * (ABNORMAL) Blood Gas, Arterial POC (06/14/2024 12:15 PM EST) pH, Arterial 7.38 7.35 - 7.45 06/14/2024 12:16 PM [facility] PCO2, Arterial 40 35 - 45 mmHg 06/14/2024 12:16 PM [facility] Bicarbonate, Arterial 22.9 20.0 - 26.0 mmol/L 06/14/2024 12:16 PM [facility] Base Excess, Arterial -2.3 -3.0 - 3.0 mmol/L 06/14/2024 12:16 PM [facility] Hemoglobin, Arterial 11.4(L) 13.7 - 16.5 g/dL 06/14/2024 12:16 PM [facility] Oxyhemoglobin, Arterial 98.8(H) 94.0 - 97.0 % 06/14/2024 12:16 PM [facility] Carboxyhemoglobin , Arterial 0.3 % 06/14/2024 12:16 PM [facility] Comment: Nonsmokers: 0.5-1.5% COHB ?? Smokers: Variable ??but usually less than 10% ?? Toxic: 20-30% COHB ?? Lethal: Greater than 60% COHB Methemoglobin, Arterial 0.6 <=1.5 % 06/14/2024 12:16 PM [facility] Sodium, Arterial 134(L) 135 - 145 mmol/L 06/14/2024 12:16 PM [facility] Potassium, Arterial 5.4(H) 3.5 - 5.0 mmol/L 06/14/2024 12:16 PM [facility] Chloride, Arterial 105 98 - 107 mmol/L 06/14/2024 12:16 PM [facility] Lactate, Arterial 1.3 0.5 - 2.2 mmol/L 06/14/2024 12:16 PM [facility] IONIZED CALCIUM, ARTERIAL 1.08(L) 1.15 - 1.33 mmol/L 06/14/2024 12:16 PM [facility] Glucose, Arterial 161 65 - 199 mg/dL 06/14/2024 12:16 PM EST [facility] Comment:Glucose Concentratio n >=200 mg/dL plus symptoms is consistent with Diabetes Mellitus. Blood ARTERIAL BLOOD / Unknown 06/14/2024 12:15 PM EST 06/14/2024 12:16 PM EST Haja Byrnes MD POINT OF CARE TEST O RDERABLES [facility] [place] [address] * (ABNORMAL) Blood Gas, Arterial POC (06/14/2024 11:51 AM EST) pH, Arterial 7.40 7.35 - 7.45 06/14/2024 11:52 AM [facility] PCO2, Arterial 41 35 - 45 mmHg 06/14/2024 11:52 AM [facility] PO2, Arterial 332(H) 85 - 104 mmHg 06/14/2024 11:52 AM [facility] Bicarbonate, Arterial 24.7 20.0 - 26.0 mmol/L 06/14/2024 11:52 AM [facility] Base Excess, Arterial -0.1 -3.0 - 3.0 mmol/L 06/14/2024 11:52 AM [facility] Hemoglobin, Arterial 11.1(L) 13.7 - 16.5 g/dL 06/14/2024 11:52 AM [facility] Oxyhemoglobin, Arterial 98.7(H) 94.0 - 97.0 % 06/14/2024 11:52 AM [facility] Carboxyhemoglobin , Arterial 0.3 % 06/14/2024 11:52 AM [facility] Comment: Nonsmokers: 0.5-1.5% COHB ?? Smokers: Variable ??but usually less than 10% ?? Toxic: 20-30% COHB ?? Lethal: Greater than 60% COHB Methemoglobin, Arterial 0.4 <=1.5 % 06/14/2024 11:52 AM [facility] Sodium, Arterial 135 135 - 145 mmol/L 06/14/2024 11:52 AM [facility] Potassium, Arterial 5.7(H) 3.5 - 5.0 mmol/L 06/14/2024 11:52 AM [facility] Chloride, Arterial 105 98 - 107 mmol/L 06/14/2024 11:52 AM [facility] Lactate, Arterial 1.2 0.5 - 2.2 mmol/L 06/14/2024 11:52 AM [facility] IONIZED CALCIUM, ARTERIAL 1.10(L) 1.15 - 1.33 mmol/L 06/14/2024 11:52 AM [facility] Glucose, Arterial 148 65 - 199 mg/dL 06/14/2024 11:52 AM [facility] Comment:Glucose Concentratio n >=200 mg/dL plus symptoms is consistent with Diabetes Mellitus. Blood ARTERIAL BLOOD / Unknown 06/14/2024 11:51 AM EST 06/14/2024 11:52 AM EST Haja Byrnes MD POINT OF CARE TEST O RDERABLES [facility] [place] [address] * (ABNORMAL) Blood Gas, Arterial POC (06/14/2024 11:27 AM EST) pH, Arterial 7.38 7.35 - 7.45 06/14/2024 11:28 AM [facility] PCO2, Arterial 37 35 - 45 mmHg 06/14/2024 11:28 AM [facility] PO2, Arterial 348(H) 85 - 104 mmHg 06/14/2024 11:28 AM [facility] Bicarbonate, Arterial 21.1 20.0 - 26.0 mmol/L 06/14/2024 11:28 AM [facility] Base Excess, Arterial -4.1(L) -3.0 - 3.0 mmol/L 06/14/2024 11:28 AM [facility] Hemoglobin, Arterial 11.0(L) 13.7 - 16.5 g/dL 06/14/2024 11:28 AM [facility] Oxyhemoglobin, Arterial 98.7(H) 94.0 - 97.0 % 06/14/2024 11:28 AM [facility] Carboxyhemoglobin , Arterial 0.3 % 06/14/2024 11:28 AM [facility] Comment: Nonsmokers: 0.5-1.5% COHB ?? Smokers: Variable ??but usually less than 10% ?? Toxic: 20-30% COHB ?? Lethal: Greater than 60% COHB Methemoglobin, Arterial 0.4 <=1.5 % 06/14/2024 11:28 AM [facility] Sodium, Arterial 132(L) 135 - 145 mmol/L 06/14/2024 11:28 AM [facility] Potassium, Arterial 5.8(H) 3.5 - 5.0 mmol/L 06/14/2024 11:28 AM [facility] Chloride, Arterial 105 98 - 107 mmol/L 06/14/2024 11:28 AM [facility] Lactate, Arterial 1.1 0.5 - 2.2 mmol/L 06/14/2024 11:28 AM [facility] IONIZED CALCIUM, ARTERIAL 1.03(L) 1.15 - 1.33 mmol/L 06/14/2024 11:28 AM [facility] Glucose, Arterial 147 65 - 199 mg/dL 06/14/2024 11:28 AM [facility] Comment:Glucose Concentratio n >=200 mg/dL plus symptoms is consistent with Diabetes Mellitus. Blood ARTERIAL BLOOD / Unknown 06/14/2024 11:27 AM EST 06/14/2024 11:28 AM EST Haja Byrnes MD POINT OF CARE TEST O RDERABLES [facility] [place] [address] * (ABNORMAL) Scan, Peripheral Blood (06/14/2024 11:23 AM EST) RBC Morphology Abnormal 06/14/2024 11:59 AM EST [facility] Platelet Estimate Decreased(A) Normal 06/14/2024 11:59 AM EST [facility] Aretha cells 1-5 /HPF 06/14/2024 11:59 AM EST [facility] Blood ARTERIAL BLOOD / Unknown 06/14/2024 11:23 AM EST 06/14/2024 11:27 AM EST Bobby Loja MD HEMATOLOGY ORDERABLE S Performing Organization Address [facility]/ZIP Co de Phone Number [facility] [place] [address] * (ABNORMAL) Platelet count (06/14/2024 11:23 AM EST) Platelet 86(L) 145 - 357 x10(3)/mcL 06/14/2024 11:59 AM EST [facility] Blood ARTERIAL BLOOD / Unknown 06/14/2024 11:23 AM EST Comment:Pre-op diagnosis: CAD Bobby Loja MD HEMATOLOGY ORDERABLE S [facility] [place] [address] * (ABNORMAL) Hemoglobin and Hematocrit, blood (06/14/2024 [...] ORDERABLE S [facility] [place] [address] * (ABNORMAL) Blood Gas, Arterial POC (06/14/2024 10:58 AM EST) pH, Arterial 7.38 7.35 - 7.45 06/14/2024 10:59 AM [facility] PCO2, Arterial 43 35 - 45 mmHg 06/14/2024 10:59 AM [facility] PO2, Arterial 401(H) 85 - 104 mmHg 06/14/2024 10:59 AM [facility] Bicarbonate, Arterial 24.8 20.0 - 26.0 mmol/L 06/14/2024 10:59 AM [facility] Base Excess, Arterial -0.5 -3.0 - 3.0 mmol/L 06/14/2024 10:59 AM [facility] Hemoglobin, Arterial 11.9(L) 13.7 - 16.5 g/dL 06/14/2024 10:59 AM [facility] Oxyhemoglobin, Arterial 99.0(H) 94.0 - 97.0 % 06/14/2024 10:59 AM [facility] Carboxyhemoglobin , Arterial 0.3 % 06/14/2024 10:59 AM [facility] Comment: Nonsmokers: 0.5-1.5% COHB ?? Smokers: Variable ??but usually less than 10% ?? Toxic: 20-30% COHB ?? Lethal: Greater than 60% COHB Methemoglobin, Arterial 0.3 <=1.5 % 06/14/2024 10:59 AM [facility] Sodium, Arterial 128(L) 135 - 145 mmol/L 06/14/2024 10:59 AM [facility] Potassium, Arterial 6.6(HHH) 3.5 - 5.0 mmol/L 06/14/2024 10:59 AM [facility] Chloride, Arterial 99 98 - 107 mmol/L 06/14/2024 10:59 AM [facility] Lactate, Arterial 1.3 0.5 - 2.2 mmol/L 06/14/2024 10:59 AM [facility] IONIZED CALCIUM, ARTERIAL 1.00(L) 1.15 - 1.33 mmol/L 06/14/2024 10:59 AM [facility] Glucose, Arterial 155 65 - 199 mg/dL 06/14/2024 10:59 AM [facility] Comment:Glucose Concentratio n >=200 mg/dL plus symptoms is consistent with Diabetes Mellitus. Blood ARTERIAL BLOOD / Unknown 06/14/2024 10:58 AM EST 06/14/2024 10:59 AM EST Haja Byrnes MD POINT OF CARE TEST O RDERABLES [facility] [place] [address] * (ABNORMAL) Blood Gas, Arterial POC (06/14/2024 10:26 AM EST) pH, Arterial 7.29(LLL) 7.35 - 7.45 06/14/2024 10:27 AM EST [facility] PCO2, Arterial 43 35 - 45 mmHg 06/14/2024 10:27 AM [facility] PO2, Arterial 369(H) 85 - 104 mmHg 06/14/2024 10:27 AM [facility] Bicarbonate, Arterial 19.9(L) 20.0 - 26.0 mmol/L 06/14/2024 10:27 AM [facility] Base Excess, Arterial -6.7(L) -3.0 - 3.0 mmol/L 06/14/2024 10:27 AM [facility] Hemoglobin, Arterial 12.6(L) 13.7 - 16.5 g/dL 06/14/2024 10:27 AM [facility] Oxyhemoglobin, Arterial 99.1(H) 94.0 - 97.0 % 06/14/2024 10:27 AM [facility] Carboxyhemoglobin , Arterial 0.1 % 06/14/2024 10:27 AM [facility] Comment: Nonsmokers: 0.5-1.5% COHB ?? Smokers: Variable ??but usually less than 10% ?? Toxic: 20-30% COHB ?? Lethal: Greater than 60% COHB Methemoglobin, Arterial 0.4 <=1.5 % 06/14/2024 10:27 AM [facility] Sodium, Arterial 129(L) 135 - 145 mmol/L 06/14/2024 10:27 AM [facility] Potassium, Arterial 5.0 3.5 - 5.0 mmol/L 06/14/2024 10:27 AM [facility] Chloride, Arterial 99 98 - 107 mmol/L 06/14/2024 10:27 AM [facility] Lactate, Arterial 0.9 0.5 - 2.2 mmol/L 06/14/2024 10:27 AM [facility] IONIZED CALCIUM, ARTERIAL 1.05(L) 1.15 - 1.33 mmol/L 06/14/2024 10:27 AM [facility] Glucose, Arterial 149 65 - 199 mg/dL 06/14/2024 10:27 AM [facility] Comment:Glucose Concentratio n >=200 mg/dL plus symptoms is consistent with Diabetes Mellitus. Blood ARTERIAL BLOOD / Unknown 06/14/2024 10:26 AM EST 06/14/2024 10:27 AM EST Haja Byrnes MD POINT OF CARE TEST O RDERABLES [facility] [place] [address] * (ABNORMAL) Blood Gas, Arterial POC (06/14/2024 10:25 AM EST) pH, Arterial 7.26(LLL) 7.35 - 7.45 06/14/2024 10:26 AM [facility] PCO2, Arterial 48(H) 35 - 45 mmHg 06/14/2024 10:26 AM [facility] Bicarbonate, Arterial 21.2 20.0 - 26.0 mmol/L 06/14/2024 10:26 AM [facility] Base Excess, Arterial -5.8(L) -3.0 - 3.0 mmol/L 06/14/2024 10:26 AM [facility] Hemoglobin, Arterial 12.5(L) 13.7 - 16.5 g/dL 06/14/2024 10:26 AM [facility] Oxyhemoglobin, Arterial 82.3(L) 94.0 - 97.0 % 06/14/2024 10:26 AM [facility] Carboxyhemoglobin , Arterial 0.5 % 06/14/2024 10:26 AM [facility] Comment: Nonsmokers: 0.5-1.5% COHB ?? Smokers: Variable ??but usually less than 10% ?? Toxic: 20-30% COHB ?? Lethal: Greater than 60% COHB Methemoglobin, Arterial 0.5 <=1.5 % 06/14/2024 10:26 AM [facility] Sodium, Arterial 131(L) 135 - 145 mmol/L 06/14/2024 10:26 AM [facility] Potassium, Arterial 4.6 3.5 - 5.0 mmol/L 06/14/2024 10:26 AM [facility] Chloride, Arterial 103 98 - 107 mmol/L 06/14/2024 10:26 AM [facility] Lactate, Arterial 0.8 0.5 - 2.2 mmol/L 06/14/2024 10:26 AM EST [facility] IONIZED CALCIUM, ARTERIAL 0.91(LLL) 1.15 - 1.33 mmol/L 06/14/2024 10:26 AM EST [facility] Glucose, Arterial 148 65 - 199 mg/dL 06/14/2024 10:26 AM EST [facility] Comment:Glucose Concentratio n >=200 mg/dL plus symptoms is consistent with Diabetes Mellitus. Blood ARTERIAL BLOOD / Unknown 06/14/2024 10:25 AM EST 06/14/2024 10:26 AM EST Haja Byrnes MD POINT OF CARE TEST O RDERABLES [facility] [place] [address] * Surgical Pathology (06/14/2024 9:53 AM EST) Case Report Surgical Pathology Report ? Case: [id number] ? Authorizing Provider: ??Bobby Loja MD ? Collected: ? 06/14/2024 0953 ? Ordering Location: ? Main Operating Room [facility] ?? Received: ?06/14/2024 1413 ? [facility] ? [facility] ? Pathologist: ? Sandra Salas MD ? Specimens: ?? A) - Soft Tissue Mass, mediastinal mass ? B) - Heart, Atrial Appendage, Left ? 06/18/2024 10:18 AM [facility] Final Diagnosis A. Soft Tissue Mass, Mediastinal Mass, Excision: - Atrophic thymic tissue B. Heart, Atrial Appendage, Left, Excision: - Mild myocyte hypertrophy 06/18/2024 10:18 AM [facility] Clinical Information A. Soft Tissue Mass, mediastinal mass Soft tissue mass Mediastinal mass B. Heart, Atrial Appendage, Left, *Other - as specified in Clinical Information MARIALUISA 06/18/2024 10:18 AM [facility] Gross Description A. Soft Tissue Mass, mediastinal mass. A - Labeled/Fixative : Mediastinal mass, fresh. Quantity/Size: Single, 7.2 x 5.3 x 1.2 cm. Tissue Description: Unoriented, intact portion of soft, rodriguez-yellow, lobulated tissue. The cut surface is homogenously pale-rodriguez, yellow and lobulated. No lesions or nodules are identified. Inking: External surface inked black Sections/Process ing: Outdoor Guide sections in 4 cassettes labeled A1-A4. cmk B. Heart, Atrial Appendage, Left, . B - Labeled/Fixative : Heart, atrial appendage, left, fresh. Quantity/Size: Single, 3.3 x 1.5 x 0.8 cm. Tissue Description: Portion of heart tissue consisting of rodriguez-white, semitranslucent, smooth endocardium with rodriguez-brown muscular myocardium and thin translucent epicardium with adherent adipose tissue. No areas of discoloration identified. Sections/Process ing: Outdoor Guide sections in 1 cassette labeled B1. cmk 06/18/2024 10:18 AM EST [facility] Result Note Routine 06/18/2024 10:18 AM [facility] Tissue SOFT TISSUE MASS / Unknown 06/14/2024 9:53 AM EST 06/14/2024 2:13 PM EST Comment:Mediastinal mass Tissue specimen (specimen) LEFT ATRIAL APPENDAGE ABSENT / Unknown 06/14/2024 10:54 AM EST 06/14/2024 2:13 PM EST Comment:MARIALUISA Bobby Loja MD PATHOLOGY/CYTOLOGY O RDERABLES [facility] [place] [address] * Cooximetry, POC (06/14/2024 9:00 AM EST) pO2, Coox 57 mmHg 06/14/2024 9:04 AM EST [facility] PO2 Corrected, COOX 50 mmHg 06/14/2024 9:04 AM EST [facility] Hemoglobin, Coox 14.3 13.7 - 16.5 g/dL 06/14/2024 9:04 AM EST [facility] Oxyhemoglobin, Coox 86.2 % 06/14/2024 9:04 AM EST [facility] Carboxyhemoglobi n, Coox 0.3 % 06/14/2024 9:04 AM [facility] Comment: Nonsmokers: 0.5-1.5% COHB ?? Smokers: Variable ??but usually less than 10% ?? Toxic: 20-30% COHB ?? Lethal: Greater than 60% COHB Methemoglobin, Coox 0.3 <=1.5 % 06/14/2024 9:04 AM [facility] Temperature Coox 35.2 C 06/14/20 24 9:04 AM [facility] Blood (Mixed Venous) 06/14/2024 9:00 AM EST 06/14/2024 9:04 AM EST Haja Byrnes MD POINT OF CARE TEST O RDERABLES [facility] [place] [address] * (ABNORMAL) Blood Gas, Arterial POC (06/14/2024 8:39 AM EST) pH, Arterial 7.37 7.35 - 7.45 06/14/2024 8:40 AM [facility] PCO2, Arterial 42 35 - 45 mmHg 06/14/2024 8:40 AM [facility] PO2, Arterial 341(H) 85 - 104 mmHg 06/14/2024 8:40 AM [facility] Bicarbonate, Arterial 23.7 20.0 - 26.0 mmol/L 06/14/2024 8:40 AM [facility] Base Excess, Arterial -1.6 -3.0 - 3.0 mmol/L 06/14/2024 8:40 AM [facility] Hemoglobin, Arterial 15.2 13.7 - 16.5 g/dL 06/14/2024 8:40 AM [facility] Oxyhemoglobin, Arterial 99.2(H) 94.0 - 97.0 % 06/14/2024 8:40 AM [facility] Carboxyhemoglobin , Arterial 0.1 % 06/14/2024 8:40 AM [facility] Comment: Nonsmokers: 0.5-1.5% COHB ?? Smokers: Variable ??but usually less than 10% ?? Toxic: 20-30% COHB ?? Lethal: Greater than 60% COHB Methemoglobin, Arterial 0.3 <=1.5 % 06/14/2024 8:40 AM [facility] Sodium, Arterial 136 135 - 145 mmol/L 06/14/2024 8:40 AM [facility] Potassium, Arterial 4.2 3.5 - 5.0 mmol/L 06/14/2024 8:40 AM [facility] Chloride, Arterial 102 98 - 107 mmol/L 06/14/2024 8:40 AM [facility] Lactate, Arterial 0.9 0.5 - 2.2 mmol/L 06/14/2024 8:40 AM [facility] IONIZED CALCIUM, ARTERIAL 1.17 1.15 - 1.33 mmol/L 06/14/2024 8:40 AM [facility] Glucose, Arterial 121 65 - 199 mg/dL 06/14/2024 8:40 AM [facility] Comment:Glucose Concentratio n >=200 mg/dL plus symptoms is consistent with Diabetes Mellitus. Blood ARTERIAL BLOOD / Unknown 06/14/2024 8:39 AM EST 06/14/2024 8:40 AM EST Haja Byrnes MD POINT OF CARE TEST O RDERABLES [facility] [place] [address] * Transesophageal Echo/OR (06/14/2024 7:20 AM EST) Anatomical Region Laterality Modality Cardiac Other 06/14/2024 7:20 AM EST Narrative 06/14/2024 4:36 PM EST Version: 2 Study ID: [id number] [address] [place] [address] ?OR Transesophageal Echo Report Name: GEORGE MEHTA [...] of this mass after consultation with other causticiser experts and the decision was made by [...] PM Procedure Note Hosea Ardon MD - 11/11/2024 Version: 2 Study ID: [id number] [place] [id number] ORTransesophageal Echo Report Name: GEORGE MEHTA Study [...] of this mass after consultation with other causticiser experts and thedecision was made by surgeon [...] O RDERABLES [facility] [place] [address] * POC, GLUCOSE (06/14/2024 4:30 AM EST) Glucometer, POC 85 65 - 199 mg/dL 06/14/2024 4:30 AM EST [facility] Comment:Supplemental ranges: <140 mg/dL before meals <180 mg/dL all other times of the day. Blood CAPILLARY BLOOD / Unknown 06/14/2024 4:30 AM EST 06/14/2024 4:30 AM EST Haja Byrnes MD POINT OF CARE TEST O RDERABLES Performing Organization Address [facility]/ZIP Co de Phone Number [facility] [place] [address] * (ABNORMAL) Heparin (unfractionated) Level (06/14/2024 12:12 AM EST) Pathologist [facility] UF Heparin 1.02(HHH) IU/mL 06/14/2024 12:46 AM [...] MD HEMATOLOGY ORDERABLE S Performing Organization Address City/[facility]/ZIP Co de Phone Number [facility] [place] [address] * (ABNORMAL) CBC (with Diff) (06/14/2024 12:12 AM [facility]) [facility] Signature White Blood Cell 10.51(H) 4.00 - 9.50 x10(3)/mc L 06/14/2024 12:38 AM [facility] Red Blood Cell 4.99 4.58 - 5.54 x10(6)/mc L 06/14/2024 12:38 AM [facility] Hemoglobin 14.9 13.7 - 16.5 g/dL 06/14/2024 12:38 AM [facility] Hematocrit 45.9 40.5 - 48.5 % 06/14/2024 12:38 AM [facility] Mean Cell Volume 92.0 82.9 - 93.1 fL 06/14/2024 12:38 AM [facility] Mean Cell Hemoglobin 29.9 27.5 - 32.1 pg 06/14/2024 12:38 AM [facility] Mean Cell Hemoglobin Concentration 32.5 32.0 - 35.7 g/dL 06/14/2024 12:38 AM [facility] Platelet 162 145 - 357 x10(3)/mc L 06/14/2024 12:38 AM [facility] Mean Platelet Volume 10.1 7.6 - 12.9 fL 06/14/2024 12:38 AM [facility] RDW Standard Deviation 46.9(H) 36.0 - 45.0 fL 06/14/2024 12:38 AM [facility] RDW coefficient of variation 13.8 11.4 - 13.8 % 06/14/2024 12:38 AM [facility] NRBC% auto 0.0 % 06/14/2024 12:38 AM [facility] NRBC Absolute <0.01 <0.01 x10(3)/mc L 06/14/2024 12:38 AM [facility] Neutrophil % 56.7 % 06/14/2024 12:38 AM [facility] Neutrophil Absolute (ANC) - Automated 5.96 1.70 - 6.10 x10(3)/mc L 06/14/2024 12:38 AM [facility] Lymph % 26.8 % 06/14/2024 12:38 AM [facility] Lymph Absolute 2.82 0.90 - 3.20 x10(3)/mc L 06/14/2024 12:38 AM [facility] Monocyte % 11.2 % 06/14/2024 12:38 AM [facility] Monocyte Absolute 1.18(H) 0.30 - 0.90 x10(3)/mc L 06/14/2024 12:38 AM [facility] Eos % 3.9 % 06/14/2024 12:38 AM [facility] Eos Absolute 0.41(H) 0.00 - 0.40 x10(3)/mc L 06/14/2024 12:38 AM [facility] Basophil % 0.8 % 06/14/2024 12:38 AM [facility] Baso Absolute 0.08 0.00 - 0.10 x10(3)/mc L 06/14/2024 12:38 AM [facility] Immature Gran % 0.6 % 12:38 AM [facility] Immature Gran Absolute 0.06(H) 0.00 - 0.04 x10(3)/mc L 06/14/2024 12:38 AM [facility] Blood VENOUS BLOOD SPECIMEN / Unknown Venipuncture / Unknown 06/14/2024 12:12 AM EST 06/14/2024 12:29 AM EST Shahnaz Scanlon MD HEMATOLOGY ORDERABLE S [facility] [place] [address] * Magnesium (06/14/2024 12:12 AM EST) Magnesium 0.74 0.69 - 1.07 mMol/L 06/14/2024 12:57 AM EST [facility] Blood VENOUS BLOOD SPECIMEN / Unknown Venipuncture / Unknown 06/14/2024 12:12 AM EST 06/14/2024 12:29 AM EST Shahnaz Scanlon MD CHEMISTRY ORDERABLES [facility] [place] [address] * (ABNORMAL) Basic Metabolic Panel (06/14/2024 12:12 AM EST) Glucose 97 65 - 199 mg/dL 06/14/2024 12:57 AM [facility] Comment:Glucose Concentratio n >=200 mg/dL plus symptoms is consistent with Diabetes Mellitus. Blood Urea Nitrogen 25(H) 10 - 20 mg/dL 06/14/2024 12:57 AM [facility] Creatinine 1.14 0.80 - 1.50 mg/dL 06/14/2024 12:57 AM [facility] Sodium 135 135 - 145 mMol/L 06/14/2024 12:57 AM [facility] Potassium 4.1 3.5 - 5.0 mMol/L 06/14/2024 12:57 AM [facility] Chloride 100 98 - 107 mMol/L 06/14/2024 12:57 AM [facility] Carbon Dioxide 25 22 - 31 mMol/L 06/14/2024 12:57 AM [facility] Anion Gap 10 5 - 15 mMol/L 06/14/2024 12:57 AM [facility] Calcium 9.5 8.5 - 10.5 mg/dL 06/14/2024 12:57 AM [facility] Est Glomerular Filtration Rate - Male 70 mL/min/1. 73 m?? 06/14/2024 12:57 AM EST [facility] Comment: This patient's estimated [...] MD CHEMISTRY ORDERABLES Performing Organization Address [facility] Co de Phone Number [facility] [place] [address] * Scan Doc: Implantable Devices (06/14/2024 12:00 [...] TEST O RDERABLES Performing Organization Address [facility]/ZIP Co de Phone Number [facility] [place] [address] * (ABNORMAL) POC, GLUCOSE (06/13/2024 8:03 PM [...] TEST O RDERABLES Performing Organization Address [facility] Co de Phone Number [facility] [place] [address] * Heparin (unfractionated) Level (06/13/2024 4:11 PM [...] HEMATOLOGY ORDERABLE S Performing Organization Address [facility] Co de Phone Number [facility] [place] [address] * ABORH RECHECK (06/13/2024 4:11 PM EST) Pathologist [facility] [place] ABORH Recheck O POSITIVE 06/13/2024 4:50 PM EST [facility] Blood VENOUS BLOOD SPECIMEN / Unknown Venipuncture / Unknown 06/13/2024 4:11 PM EST 06/13/2024 4:19 PM EST Haja Byrnes MD BLOOD BANK LAB ORDER EUSEBIA [facility] [place] [address] * (ABNORMAL) POC, GLUCOSE (06/13/2024 4:09 PM [...] CARE TEST O RDERABLES Performing Organization Address City/[facility]/ZIP Co de Phone Number [facility] [place] [address] * Type and screen ([facility]CGP/RAFITA) (06/13/2024 11:53 AM EST) Pathologist [facility] ABORH Type O POSITIVE 06/13/2024 1:16 PM EST [facility] PATIENT HISTORY Not Found 06/13/2024 1:16 PM EST [facility] Expires at [id number] on: 06/16/2024 06/13/2024 1:16 PM EST [facility] ANTIBODY SCREEN AUTOMATED Negative 06/13/2024 1:16 PM EST [facility] T&S only valid at [facility] 06/13/2024 1:16 PM EST [facility] Blood VENOUS BLOOD SPECIMEN / Unknown Venipuncture / Unknown 06/13/2024 11:53 AM EST 06/13/2024 11:56 AM EST Narrative [facility] - 06/13/2024 1:16 PM EST This Type and Screen result is only valid at the [facility] Haja Byrnes MD BLOOD BANK LAB ORDER EUSEBIA Performing Organization Address [facility] Co de Phone Number [facility] [place] [address] * POC, GLUCOSE (06/13/2024 11:50 AM EST) Glucometer, POC 178 65 - 199 mg/dL 06/13/2024 11:51 AM EST [facility] Comment:Supplemental ranges: <140 mg/dL before meals <180 mg/dL all other times of the day. Blood CAPILLARY BLOOD / Unknown 06/13/2024 11:50 AM EST 06/13/2024 11:51 AM EST Haja Byrnes MD POINT OF CARE TEST O RDERABLES Performing Organization Address [facility] Co de Phone Number [facility] [place] [address] * XR Chest One View (06/13/2024 10:35 AM EST) WORKSTATION ID [id number] [facility] Anatomical Region Laterality Modality Chest N/A Digital [...] questions please contact the health child care supervisor that requested your imaging first. ? Electronically signed by: Jyothi Simon MD, [facility] ([phone]), at 06/13/2024 10:43 AM Narrative 06/13/2024 10:43 [...] have questions please contactthe health child care supervisor that requested your imaging first. Electronically signed by: Jyothi Simon MD, [facility]([phone]), at 06/13/2024 10:43 AM Haja Santiago Fitz GARCIA IMG DX ORDERABLES * CARDIAC CATHETERIZATION (06/13/2024 9:02 AM EST) Anatomical Region Laterality Modality Other Narrative 06/15/2024 9:07 AM EST ?[facility] ? Cardiac Catheterization/Intervention Report ? Patient Name: Tyson, George L. ? Procedure Date: 06/13/2024 ? A #: [id number] ? Primary Physician: Nuha Shen I ? Case #: [id number] ? File Name: [id number] ? Catheterization Order Number: [id number] ? [facility] ? Final Report [place], [place] ? Patient Name: ? George L. Tyson ? ID#: ?[id number] ? : ?1955 ? Procedure Date: ? June 13, 2024 ?Case #: ? [id number] ? Room: ? 6 ? Case Physician: [...] ?was designated as ASA Class IV. The [facility] clinical frailty scale is 5: [...] procedure was Urgent. The indication for ?the greenhouse laborer visit is ACS greater than 24 [...] angiography, vascular ?ultrasound and IABP insertion in greenhouse laborer. ? Nuha Shen M.D. ? Electronically Signed by: Nuha Shen M.D. ? Report Finalized: 06/15/2024 ??08:59 ? Procedure Note Nuha Shen MD - 06/15/2024 [facility] Cardiac Catheterization/Intervention Report Patient Name: George Mehta Procedure Date: 06/13/2024 A #: [id number] Primary Physician: Nuha Shen I Case #: [id number] File Name: [id number] Catheterization Order Number: [id number] [facility] FinalReport [place], [place] Patient Name: George Mehta ID#:[id number] :1955 Procedure Date: June 13, 2024 Case [...] was designated as ASA Class IV. The [facility] clinical frailty scale is5: Mildly [...] diagnostic procedure was Urgent. The indicationfor the greenhouse laborer visit is ACS greater than 24 [...] site angiography,vascular ultrasound and IABP insertion in greenhouse laborer. Nuha Shen M.D. Electronically Signed by: [...] Scanlon MD CHEMISTRY ORDERABLES Performing Organization Address City/State/[facility] de Phone Number [facility] [place] [address] * POC, GLUCOSE (06/13/2024 7:41 AM EST) Glucometer, POC 126 65 - 199 mg/dL 06/13/2024 7:41 AM EST [facility] Comment:Supplemental ranges: <140 mg/dL before meals <180 mg/dL all other times of the day. Blood CAPILLARY BLOOD / Unknown 06/13/2024 7:41 AM EST 06/13/2024 7:41 AM EST Ethel Carrillo MD POINT OF CARE TEST O NIKA Performing Organization Address [facility] Phone Number [facility] [place] [address] * POC, GLUCOSE (06/13/2024 3:25 AM EST) [facility] Glucometer, POC 99 65 - 199 mg/dL 06/13/2024 3:25 AM EST [facility] Comment:Supplemental ranges: <140 mg/dL before meals <180 mg/dL all other times of the day. Blood CAPILLARY BLOOD / Unknown 06/13/2024 3:25 AM EST 06/13/2024 3:25 AM EST Ethel Carrillo MD POINT OF CARE TEST Abimael MAHER Performing Organization Address [facility] Phone Number [facility] [place] [address] * Heparin (unfractionated) Level (06/13/2024 2:26 AM [...] HEMATOLOGY ORDERABLE S Performing Organization Address City/State/[facility] Co de Phone Number [facility] [place] [phone] * (ABNORMAL) CBC (with Diff) (06/13/2024 2:26 AM EST) White Blood Cell 9.98(H) 4.00 - 9.50 x10(3)/mc L 06/13/2024 2:41 AM EST [facility] Red Blood Cell 5.11 4.58 - 5.54 x10(6)/mc L 06/13/2024 2:41 AM EST [facility] Hemoglobin 15.3 13.7 - 16.5 g/dL 06/13/2024 2:41 AM EST [facility] Hematocrit 47.1 40.5 - 48.5 % 06/13/2024 2:41 AM EST [facility] Mean Cell Volume 92.2 82.9 - 93.1 fL 06/13/2024 2:41 AM EST [facility] Mean Cell Hemoglobin 29.9 27.5 - 32.1 pg 06/13/2024 2:41 AM EST [facility] Mean Cell Hemoglobin Concentration 32.5 32.0 - 35.7 g/dL 06/13/2024 2:41 AM [facility] Platelet 194 145 - 357 x10(3)/mc L 06/13/2024 2:41 AM [facility] Mean Platelet Volume 9.7 7.6 - 12.9 fL 06/13/2024 2:41 AM [facility] RDW Standard Deviation 47.5(H) 36.0 - 45.0 fL 06/13/2024 2:41 AM [facility] RDW coefficient of variation 13.8 11.4 - 13.8 % 06/13/2024 2:41 AM [facility] NRBC% auto 0.0 % 06/13/2024 2:41 AM [facility] NRBC Absolute <0.01 <0.01 x10(3)/mc L 06/13/2024 2:41 AM [facility] Neutrophil % 48.8 % 06/13/2024 2:41 AM [facility] Neutrophil Absolute (ANC) - Automated 4.87 1.70 - 6.10 x10(3)/mc L 06/13/2024 2:41 AM [facility] Lymph % 35.3 % 06/13/2024 2:41 AM [facility] Lymph Absolute 3.52(H) 0.90 - 3.20 x10(3)/mc L 06/13/2024 2:41 AM [facility] Monocyte % 10.1 % 06/13/2024 2:41 AM [facility] Monocyte Absolute 1.01(H) 0.30 - 0.90 x10(3)/mc L 06/13/2024 2:41 AM [facility] Eos % 4.4 % 06/13/2024 2:41 AM [facility] Eos Absolute 0.44(H) 0.00 - 0.40 x10(3)/mc L 06/13/2024 2:41 AM [facility] Basophil % 0.9 % 06/13/2024 2:41 AM EST [facility] Baso Absolute 0.09 0.00 - 0.10 x10(3)/mc L 06/13/2024 2:41 AM EST [facility] Immature Gran % 0.5 % 2:41 AM EST [facility] Immature Gran Absolute 0.05(H) 0.00 - 0.04 x10(3)/mc L 06/13/2024 2:41 AM EST [facility] Blood VENOUS BLOOD SPECIMEN / Unknown Venipuncture / Unknown 06/13/2024 2:26 AM EST 06/13/2024 2:32 AM EST Shahnaz Scanlon MD HEMATOLOGY ORDERABLE S Performing Organization Address City/[facility]/ZIP Co de Phone Number [facility] [address] * Magnesium (06/13/2024 2:26 AM EST) Magnesium 0.78 0.69 - 1.07 mMol/L 06/13/2024 2:58 AM [facility] Blood VENOUS BLOOD SPECIMEN / Unknown Venipuncture / Unknown 06/13/2024 2:26 AM EST 06/13/2024 2:31 AM EST Shahnaz Scanlon MD CHEMISTRY ORDERABLES [facility] [place] [address] * (ABNORMAL) Basic Metabolic Panel (06/13/2024 2:26 AM EST) Glucose 121 65 - 199 mg/dL 06/13/2024 2:58 AM [facility] Comment:Glucose Concentratio n >=200 mg/dL plus symptoms is consistent with Diabetes Mellitus. Blood Urea Nitrogen 21(H) 10 - 20 mg/dL 06/13/2024 2:58 AM EST [facility] Creatinine 1.07 0.80 - 1.50 mg/dL 06/13/2024 2:58 AM EST [facility] Sodium 136 135 - 145 mMol/L 06/13/2024 2:58 AM [facility] Potassium 3.9 3.5 - 5.0 mMol/L 06/13/2024 2:58 AM [facility] Chloride 99 98 - 107 mMol/L 06/13/2024 2:58 AM [facility] Carbon Dioxide 27 22 - 31 mMol/L 06/13/2024 2:58 AM [facility] Anion Gap 10 5 - 15 mMol/L 06/13/2024 2:58 AM [facility] Calcium 9.7 8.5 - 10.5 mg/dL 06/13/2024 2:58 AM [facility] Est Glomerular [...] CHEMISTRY ORDERABLES [facility] [place] [address] * POC, GLUCOSE (06/12/2024 11:53 PM EST) Glucometer, POC 141 65 - 199 mg/dL 06/12/2024 11:54 PM EST [facility] Comment:Supplemental ranges: <140 mg/dL before meals <180 mg/dL all other times of the day. Blood CAPILLARY BLOOD / Unknown 06/12/2024 11:53 PM EST 06/12/2024 11:54 PM EST Ethel Carrillo MD POINT OF CARE TEST O NIKA Performing Organization Address City/[facility] Co de Phone Number [facility] [place] [address] * POC, GLUCOSE (06/12/2024 7:32 PM EST) Glucometer, POC 158 65 - 199 mg/dL 06/12/2024 7:32 PM EST [facility] Comment:Supplemental ranges: <140 mg/dL before meals <180 mg/dL all other times of the day. Blood CAPILLARY BLOOD / Unknown 06/12/2024 7:32 PM EST 06/12/2024 7:32 PM EST Ethel Carrillo MD POINT OF CARE TEST O NIKA Performing Organization Address [facility] Co de Phone Number [facility] [place] [address] * POC, GLUCOSE (06/12/2024 3:41 PM EST) Glucometer, POC 113 65 - 199 mg/dL 06/12/2024 3:41 PM EST [facility] Comment:Supplemental ranges: <140 mg/dL before meals <180 mg/dL all other times of the day. Blood CAPILLARY BLOOD / Unknown 06/12/2024 3:41 PM EST 06/12/2024 3:41 PM EST Ethel Carrillo MD POINT OF CARE TEST O NIKA Performing Organization Address City/[facility]/ZIP Co de Phone Number [facility] [place] [address] * Potassium (06/12/2024 2:19 PM EST) Potassium 4.5 3.5 - 5.0 mMol/L 06/12/2024 2:45 PM EST [facility] Blood VENOUS BLOOD SPECIMEN / Unknown Venipuncture / Unknown 06/12/2024 2:19 PM EST 06/12/2024 2:23 PM EST Shahnaz Scanlon MD CHEMISTRY ORDERABLES [facility] [place] [address] * (ABNORMAL) POC, GLUCOSE (06/12/2024 11:21 AM [...] O NIKA [facility] [place] [address] * POC, GLUCOSE (06/12/2024 8:00 AM EST) [...] O NIKA [facility] [place] [address] * POC, GLUCOSE (06/12/2024 4:25 AM EST) Glucometer, POC 132 65 - 199 mg/dL 06/12/2024 4:26 AM EST [facility] Comment:Supplemental ranges: <140 mg/dL before meals <180 mg/dL all other times of the day. Blood CAPILLARY BLOOD / Unknown 06/12/2024 4:25 AM EST 06/12/2024 4:26 AM EST Ethel Carrillo MD POINT OF CARE TEST O RDERABLES Performing Organization Address [facility] Co de Phone Number [facility] [place] [address] * Heparin (unfractionated) Level (06/12/2024 3:03 AM [...] ORDERABLE S [facility] [place] [address] * (ABNORMAL) CBC (with Diff) (06/12/2024 3:03 AM EST) White Blood Cell 9.69(H) 4.00 - 9.50 x10(3)/mc L 06/12/2024 3:36 AM [facility] Red Blood Cell 5.05 4.58 - 5.54 x10(6)/mc L 06/12/2024 3:36 AM [facility] Hemoglobin 15.2 13.7 - 16.5 g/dL 06/12/2024 3:36 AM [facility] Hematocrit 46.6 40.5 - 48.5 % 06/12/2024 3:36 AM [facility] Mean Cell Volume 92.3 82.9 - 93.1 fL 06/12/2024 3:36 AM [facility] Mean Cell Hemoglobin 30.1 27.5 - 32.1 pg 06/12/2024 3:36 AM [facility] Mean Cell Hemoglobin Concentration 32.6 32.0 - 35.7 g/dL 06/12/2024 3:36 AM [facility] Platelet 194 145 - 357 x10(3)/mc L 06/12/2024 3:36 AM [facility] Mean Platelet Volume 10.1 7.6 - 12.9 fL 06/12/2024 3:36 AM [facility] RDW Standard Deviation 47.7(H) 36.0 - 45.0 fL 06/12/2024 3:36 AM [facility] RDW coefficient of variation 14.0(H) 11.4 - 13.8 % 06/12/2024 3:36 AM [facility] NRBC% auto 0.0 % 06/12/2024 3:36 AM [facility] NRBC Absolute <0.01 <0.01 x10(3)/mc L 06/12/2024 3:36 AM [facility] Neutrophil % 49.9 % 06/12/2024 3:36 AM [facility] Neutrophil Absolute (ANC) - Automated 4.82 1.70 - 6.10 x10(3)/mc L 06/12/2024 3:36 AM [facility] Lymph % 33.5 % 06/12/2024 3:36 AM [facility] Lymph Absolute 3.25(H) 0.90 - 3.20 x10(3)/mc L 06/12/2024 3:36 AM [facility] Monocyte % 11.1 % 06/12/2024 3:36 AM [facility] Monocyte Absolute 1.08(H) 0.30 - 0.90 x10(3)/mc L 06/12/2024 3:36 AM [facility] Eos % 4.1 % 06/12/2024 3:36 AM [facility] Eos Absolute 0.40 0.00 - 0.40 x10(3)/mc L 06/12/2024 3:36 AM [facility] Basophil % 0.8 % 06/12/2024 3:36 AM [facility] Baso Absolute 0.08 0.00 - 0.10 x10(3)/mc L 06/12/2024 3:36 AM [facility] Immature Gran % 0.6 % 3:36 AM [facility] Immature Gran Absolute 0.06(H) 0.00 - 0.04 x10(3)/mc L 06/12/2024 3:36 AM [facility] Blood VENOUS BLOOD SPECIMEN / Unknown Venipuncture / Unknown 06/12/2024 3:03 AM EST 06/12/2024 3:30 AM EST Shahnaz Scanlon MD HEMATOLOGY ORDERABLE S [facility] [place] [address] * Magnesium (06/12/2024 3:03 AM EST) Pathologist [facility] Magnesium 0.79 0.69 - 1.07 mMol/L 06/12/2024 4:01 AM [facility] Blood VENOUS BLOOD SPECIMEN / Unknown Venipuncture / Unknown 06/12/2024 3:03 AM EST 06/12/2024 3:30 AM EST Shahnaz Scanlon MD CHEMISTRY ORDERABLES [facility] [place] [address] * (ABNORMAL) Basic Metabolic Panel (06/12/2024 3:03 AM EST) Pathologist [facility] Glucose 132 65 - 199 mg/dL 06/12/2024 4:01 AM [facility] Comment:Glucose Concentratio n >=200 mg/dL plus symptoms is consistent with Diabetes Mellitus. Blood Urea Nitrogen 23(H) 10 - 20 mg/dL 06/12/2024 4:01 AM [facility] Creatinine 1.15 0.80 - 1.50 mg/dL 06/12/2024 4:01 AM [facility] Sodium 138 135 - 145 mMol/L 06/12/2024 4:01 AM [facility] Potassium 3.8 3.5 - 5.0 mMol/L 06/12/2024 4:01 AM [facility] Chloride 98 98 - 107 mMol/L 06/12/2024 4:01 AM [facility] Carbon Dioxide 29 22 - 31 mMol/L 06/12/2024 4:01 AM [facility] Anion Gap 11 5 - 15 mMol/L 06/12/2024 4:01 AM [facility] Calcium 9.5 8.5 - 10.5 mg/dL 06/12/2024 4:01 AM [facility] Est Glomerular Filtration Rate - Male 70 mL/min/1. 73 m?? 06/12/2024 4:01 AM EST [facility] [...] Scanlon MD CHEMISTRY ORDERABLES Performing Organization Address City/[facility]/ZIP Co de Phone Number [facility] [place] [address] * POC, GLUCOSE (06/11/2024 11:56 PM EST) Glucometer, POC 135 65 - 199 mg/dL 06/11/2024 11:56 PM EST [facility] Comment:Supplemental ranges: <140 mg/dL before meals <180 mg/dL all other times of the day. Blood CAPILLARY BLOOD / Unknown 06/11/2024 11:56 PM EST 06/11/2024 11:56 PM EST Ethel Carrillo MD POINT OF CARE TEST O RDERABLES Performing Organization Address City/[facility]/ZIP Co de Phone Number [facility] [place] [address] * (ABNORMAL) POC, GLUCOSE (06/11/2024 8:25 PM [...] TEST O RDBECKIE Performing Organization Address [facility] Co de Phone Number [facility] [place] [address] * POC, GLUCOSE (06/11/2024 4:24 PM EST) Glucometer, POC 81 65 - 199 mg/dL 06/11/2024 4:24 PM EST [facility] Comment:Supplemental ranges: <140 mg/dL before meals <180 mg/dL all other times of the day. Blood CAPILLARY BLOOD / Unknown 06/11/2024 4:24 PM EST 06/11/2024 4:25 PM EST Ethel Carrillo MD POINT OF CARE TEST O NIKA Performing Organization Address [facility] Co de Phone Number [facility] [place] [address] * (ABNORMAL) POC, GLUCOSE (06/11/2024 11:08 AM EST) Glucometer, POC 233(H) 65 - 199 mg/dL 06/11/2024 11:08 AM EST [facility] Comment:Supplemental ranges: <140 mg/dL before meals <180 mg/dL all other times of the day. Blood CAPILLARY BLOOD / Unknown 06/11/2024 11:08 AM EST 06/11/2024 11:08 AM EST Ethel Carrillo MD POINT OF CARE TEST O NIKA Performing Organization Address City/[facility] Co de Phone Number [facility] [place] [address] * POC, GLUCOSE (06/11/2024 7:48 AM EST) Glucometer, POC 184 65 - 199 mg/dL 06/11/2024 7:49 AM EST [facility] Comment:Supplemental ranges: <140 mg/dL before meals <180 mg/dL all other times of the day. Blood CAPILLARY BLOOD / Unknown 06/11/2024 7:48 AM EST 06/11/2024 7:49 AM EST Melida Valdes MD POINT OF CARE TEST O RDERABLES Performing Organization Address [facility] de Phone Number [facility] [place] [address] * Heparin (unfractionated) Level (06/11/2024 5:31 AM EST) Pathologist [facility] UF Heparin 0.55 IU/mL 06/11/2024 6:10 AM [...] HEMATOLOGY ORDERABLE S Performing Organization Address [facility] Co de Phone Number [facility] [place] [address] * POC, GLUCOSE (06/11/2024 3:57 AM EST) [facility] Glucometer, POC 132 65 - 199 mg/dL 06/11/2024 3:58 AM [facility] Comment:Supplemental ranges: <140 mg/dL before meals <180 mg/dL all other times of the day. Blood CAPILLARY BLOOD / Unknown 06/11/2024 3:57 AM EST 06/11/2024 3:58 AM EST Melida Valdes MD POINT OF CARE TEST O RDERABLES [facility] [place] [address] * (ABNORMAL) CBC (with Diff) (06/11/2024 2:13 AM EST) [facility] White Blood Cell 9.91(H) 4.00 - 9.50 x10(3)/mc L 06/11/2024 2:26 AM [facility] Red Blood Cell 5.13 4.58 - 5.54 x10(6)/mc L 06/11/2024 2:26 AM [facility] Hemoglobin 15.3 13.7 - 16.5 g/dL 06/11/2024 2:26 AM [facility] Hematocrit 47.5 40.5 - 48.5 % 06/11/2024 2:26 AM [facility] Mean Cell Volume 92.6 82.9 - 93.1 fL 06/11/2024 2:26 AM [facility] Mean Cell Hemoglobin 29.8 27.5 - 32.1 pg 06/11/2024 2:26 AM [facility] Mean Cell Hemoglobin Concentration 32.2 32.0 - 35.7 g/dL 06/11/2024 2:26 AM [facility] Platelet 184 145 - 357 x10(3)/mc L 06/11/2024 2:26 AM [facility] Mean Platelet Volume 9.7 7.6 - 12.9 fL 06/11/2024 2:26 AM [facility] RDW Standard Deviation 48.0(H) 36.0 - 45.0 fL 06/11/2024 2:26 AM [facility] RDW coefficient of variation 14.0(H) 11.4 - 13.8 % 06/11/2024 2:26 AM [facility] NRBC% auto 0.0 % 06/11/2024 2:26 AM [facility] NRBC Absolute <0.01 <0.01 x10(3)/mc L 06/11/2024 2:26 AM [facility] Neutrophil % 50.3 % 06/11/2024 2:26 AM [facility] Neutrophil Absolute (ANC) - Automated 4.98 1.70 - 6.10 x10(3)/mc L 06/11/2024 2:26 AM [facility] Lymph % 33.5 % 06/11/2024 2:26 AM [facility] Lymph Absolute 3.32(H) 0.90 - 3.20 x10(3)/mc L 06/11/2024 2:26 AM [facility] Monocyte % 10.9 % 06/11/2024 2:26 AM [facility] Monocyte Absolute 1.08(H) 0.30 - 0.90 x10(3)/mc L 06/11/2024 2:26 AM [facility] Eos % 4.1 % 06/11/2024 2:26 AM [facility] Eos Absolute 0.41(H) 0.00 - 0.40 x10(3)/mc L 06/11/2024 2:26 AM [facility] Basophil % 0.7 % 06/11/2024 2:26 AM [facility] Baso Absolute 0.07 0.00 - 0.10 x10(3)/mc L 06/11/2024 2:26 AM [facility] Immature Gran % 0.5 % 2:26 AM EST [facility] Immature Gran Absolute 0.05(H) 0.00 - 0.04 x10(3)/mc L 06/11/2024 2:26 AM [facility] Blood VENOUS BLOOD SPECIMEN / Unknown Venipuncture / Unknown 06/11/2024 2:13 AM EST 06/11/2024 2:19 AM EST Shahnaz Scanlon MD HEMATOLOGY ORDERABLE S Performing Organization Address [facility]/ZIP Co de Phone Number [facility] [place] [address] * Magnesium (06/11/2024 2:13 AM EST) Magnesium 0.83 0.69 - 1.07 mMol/L 06/11/2024 2:51 AM [facility] Blood VENOUS BLOOD SPECIMEN / Unknown Venipuncture / Unknown 06/11/2024 2:13 AM EST 06/11/2024 2:19 AM EST Shahnaz Scanlon MD CHEMISTRY ORDERABLES Performing Organization Address City/[facility] Co de Phone Number [facility] [place] [address] * (ABNORMAL) Basic Metabolic Panel (06/11/2024 2:13 AM EST) Glucose 148 65 - 199 mg/dL 06/11/2024 2:51 AM [facility] Comment:Glucose Concentratio n >=200 mg/dL plus symptoms is consistent with Diabetes Mellitus. Blood Urea Nitrogen 24(H) 10 - 20 mg/dL 06/11/2024 2:51 AM [facility] Creatinine 1.06 0.80 - 1.50 mg/dL 06/11/2024 2:51 AM [facility] Sodium 134(L) 135 - 145 mMol/L 06/11/2024 2:51 AM [facility] Potassium 4.1 3.5 - 5.0 mMol/L 06/11/2024 2:51 AM [facility] Chloride 96(L) 98 - 107 mMol/L 06/11/2024 2:51 AM [facility] Carbon Dioxide 28 22 - 31 mMol/L 06/11/2024 2:51 AM [facility] Anion Gap 10 5 - 15 mMol/L 06/11/2024 2:51 AM [facility] Calcium 9.4 8.5 - 10.5 mg/dL 06/11/2024 2:51 AM [facility] Est Glomerular Filtration Rate - Male 77 mL/min/1. 73 m?? 06/11/2024 2:51 AM [facility] Comment: This [...] CHEMISTRY ORDERABLES [facility] [place] [address] * POC, GLUCOSE (06/11/2024 12:50 AM EST) [facility] Signature Glucometer, POC 144 65 - 199 mg/dL 06/11/2024 12:51 AM EST [facility] Comment:Supplemental ranges: <140 mg/dL before meals <180 mg/dL all other times of the day. Blood CAPILLARY BLOOD / Unknown 06/11/2024 12:50 AM EST 06/11/2024 12:51 AM EST Melida Valdes MD POINT OF CARE TEST O NIKA Performing Organization Address City/[facility] Co de Phone Number [facility] [place] [address] * (ABNORMAL) POC, GLUCOSE (06/10/2024 7:22 PM [...] TEST O NIKA Performing Organization Address [facility] Co de Phone Number [facility] [place] [address] * (ABNORMAL) Blood Gas, Venous (06/10/2024 5:42 PM EST) pH, Venous 7.34 7.32 - 7.42 06/10/2024 5:50 PM [facility] PCO2, Venous 52 38 - 58 mmHg 06/10/2024 5:50 PM [facility] PO2, Venous 24 16 - 65 mmHg 06/10/2024 5:50 PM [facility] Bicarbonate, Venous 27.4 22 - 31 mmol/L 06/10/2024 5:50 PM [facility] Base Excess, Venous 1.7(L) 1.9 - 4.5 mmol/L 06/10/2024 5:50 PM [facility] Hemoglobin, Venous 16.8(H) 13.7 - 16.5 g/dL 06/10/2024 5:50 PM [facility] Oxyhemoglobin, Venous 39.0 % 06/10/2024 5:50 PM [facility] Carboxyhemoglobin , Venous 0.3 % 06/10/2024 5:50 PM [facility] Comment: Nonsmokers: 0.5-1.5% COHB ?? Smokers: Variable ??but usually less than 10% ?? Toxic: 20-30% COHB ?? Lethal: Greater than 60% COHB Methemoglobin, Venous 0.5 <=1.5 % 06/10/2024 5:50 PM [facility] Sodium, Venous 137 135 - 145 mmol/L 06/10/2024 5:50 PM [facility] Chloride, Venous 96(L) 98 - 107 mmol/L 06/10/2024 5:50 PM [facility] Potassium, Venous 4.6 3.5 - 5.0 mmol/L 06/10/2024 5:50 PM [facility] Ionized Calcium, Venous 1.23 1.15 - 1.33 mmol/L 06/10/2024 5:50 PM [facility] Glucose, Venous 114 65 - 199 mg/dL 06/10/2024 5:50 PM [facility] Comment:Glucose Concentratio n >=200 mg/dL plus symptoms is consistent with Diabetes Mellitus. Lactate, Venous 1.1 0.5 - 2.2 mmol/L 06/10/2024 5:50 PM [facility] Blood Gas Source Venous 06/10/20 5:50 PM [facility] Blood VENOUS BLOOD SPECIMEN / Unknown Blood Gas Venous / Unknown 06/10/2024 5:42 PM EST 06/10/2024 5:47 PM EST Melida Valdes MD CHEMISTRY ORDERABLES [facility] [place] [address] * POC, GLUCOSE (06/10/2024 5:35 PM EST) [facility] Signature Glucometer, POC 123 65 - 199 mg/dL 06/10/2024 5:35 PM EST [facility] Comment:Supplemental ranges: <140 mg/dL before meals <180 mg/dL all other times of the day. Blood CAPILLARY BLOOD / Unknown 06/10/2024 5:35 PM EST 06/10/2024 5:35 PM EST Melida Valdes MD POINT OF CARE TEST O NIKA Performing Organization Address [facility] Co de Phone Number [facility] [place] [address] * (ABNORMAL) POC, GLUCOSE (06/10/2024 11:25 AM [...] TEST O NIKA Performing Organization Address [facility] de Phone Number [facility] [place] [address] * (ABNORMAL) POC, GLUCOSE (06/10/2024 7:46 AM EST) Glucometer, POC 206(H) 65 - 199 mg/dL 06/10/2024 7:46 AM EST [facility] Comment:Supplemental ranges: <140 mg/dL before meals <180 mg/dL all other times of the day. Blood CAPILLARY BLOOD / Unknown 06/10/2024 7:46 AM EST 06/10/2024 7:46 AM EST Melida Valdes MD POINT OF CARE TEST O NIKA Performing Organization Address City/[facility] Co de Phone Number [facility] [place] [address] * POC, GLUCOSE (06/10/2024 4:23 AM EST) Pathologist [facility] Glucometer, POC 154 65 - 199 mg/dL 06/10/2024 4:24 AM [facility] Comment:Supplemental ranges: <140 mg/dL before meals <180 mg/dL all other times of the day. Blood CAPILLARY BLOOD / Unknown 06/10/2024 4:23 AM EST 06/10/2024 4:24 AM EST Melida Valdes MD POINT OF CARE TEST O RDERABLES [facility] [place] [address] * (ABNORMAL) CBC (with Diff) (06/10/2024 1:55 AM EST) [facility] White Blood Cell 9.00 4.00 - 9.50 x10(3)/mc L 06/10/2024 2:14 AM [facility] Red Blood Cell 5.03 4.58 - 5.54 x10(6)/mc L 06/10/2024 2:14 AM [facility] Hemoglobin 14.9 13.7 - 16.5 g/dL 06/10/2024 2:14 AM [facility] Hematocrit 46.4 40.5 - 48.5 % 06/10/2024 2:14 AM [facility] Mean Cell Volume 92.2 82.9 - 93.1 fL 06/10/2024 2:14 AM [facility] Mean Cell Hemoglobin 29.6 27.5 - 32.1 pg 06/10/2024 2:14 AM [facility] Mean Cell Hemoglobin Concentration 32.1 32.0 - 35.7 g/dL 06/10/2024 2:14 AM [facility] Platelet 191 145 - 357 x10(3)/mc L 06/10/2024 2:14 AM [facility] Mean Platelet Volume 9.7 7.6 - 12.9 fL 06/10/2024 2:14 AM [facility] RDW Standard Deviation 47.4(H) 36.0 - 45.0 fL 06/10/2024 2:14 AM [facility] RDW coefficient of variation 14.1(H) 11.4 - 13.8 % 06/10/2024 2:14 AM [facility] NRBC% auto 0.0 % 06/10/2024 2:14 AM [facility] NRBC Absolute <0.01 <0.01 x10(3)/mc L 06/10/2024 2:14 AM [facility] Neutrophil % 48.7 % 06/10/2024 2:14 AM [facility] Neutrophil Absolute (ANC) - Automated 4.39 1.70 - 6.10 x10(3)/mc L 06/10/2024 2:14 AM [facility] Lymph % 34.9 % 06/10/2024 2:14 AM [facility] Lymph Absolute 3.14 0.90 - 3.20 x10(3)/mc L 06/10/2024 2:14 AM [facility] Monocyte % 11.2 % 06/10/2024 2:14 AM [facility] Monocyte Absolute 1.01(H) 0.30 - 0.90 x10(3)/mc L 06/10/2024 2:14 AM [facility] Eos % 3.6 % 06/10/2024 2:14 AM [facility] Eos Absolute 0.32 0.00 - 0.40 x10(3)/mc L 06/10/2024 2:14 AM [facility] Basophil % 1.0 % 06/10/2024 2:14 AM [facility] Baso Absolute 0.09 0.00 - 0.10 x10(3)/mc L 06/10/2024 2:14 AM [facility] Immature Gran % 0.6 % 2:14 AM [facility] Immature Gran Absolute 0.05(H) 0.00 - 0.04 x10(3)/mc L 06/10/2024 2:14 AM [facility] Blood VENOUS BLOOD SPECIMEN / Unknown Venipuncture / Unknown 06/10/2024 1:55 AM EST 06/10/2024 2:05 AM EST Shahnaz Scanlon MD HEMATOLOGY ORDERABLE S Performing Organization Address [facility] Co de Phone Number [facility] [place] [address] * Magnesium (06/10/2024 1:55 AM EST) Magnesium 0.83 0.69 - 1.07 mMol/L 06/10/2024 2:37 AM [facility] Blood VENOUS BLOOD SPECIMEN / Unknown Venipuncture / Unknown 06/10/2024 1:55 AM EST 06/10/2024 2:05 AM EST Shahnaz Scanlon MD CHEMISTRY ORDERABLES Performing Organization Address [facility] Co de Phone Number [facility] [place] [address] * (ABNORMAL) Basic Metabolic Panel (06/10/2024 1:55 AM EST) Glucose 140 65 - 199 mg/dL 06/10/2024 2:37 AM [facility] Comment:Glucose Concentratio n >=200 mg/dL plus symptoms is consistent with Diabetes Mellitus. Blood Urea Nitrogen 24(H) 10 - 20 mg/dL 06/10/2024 2:37 AM [facility] Creatinine 1.06 0.80 - 1.50 mg/dL 06/10/2024 2:37 AM [facility] Sodium 138 135 - 145 mMol/L 06/10/2024 2:37 AM [facility] Potassium 4.1 3.5 - 5.0 mMol/L 06/10/2024 2:37 AM EST [facility] Chloride 100 98 - 107 mMol/L 06/10/2024 2:37 AM [facility] Carbon Dioxide 25 22 - 31 mMol/L 06/10/2024 2:37 AM [facility] Anion Gap 13 5 - 15 mMol/L 06/10/2024 2:37 AM [facility] Calcium 9.5 8.5 - 10.5 mg/dL 06/10/2024 2:37 AM [facility] Est Glomerular [...] CHEMISTRY ORDERABLES [facility] [place] [address] * Heparin (unfractionated) Level (06/10/2024 1:54 AM [...] HEMATOLOGY ORDERABLE S Performing Organization Address [facility] Co de Phone Number [facility] [place] [address] * POC, GLUCOSE (06/10/2024 12:05 AM EST) Glucometer, POC 125 65 - 199 mg/dL 06/10/2024 12:05 AM EST [facility] Comment:Supplemental ranges: <140 mg/dL before meals <180 mg/dL all other times of the day. Blood CAPILLARY BLOOD / Unknown 06/10/2024 12:05 AM EST 06/10/2024 12:05 AM EST Melida Valdes MD POINT OF CARE TEST O RDERABLES Performing Organization Address [facility] Co de Phone Number [facility] [place] [address] * POC, GLUCOSE (06/09/2024 8:36 PM EST) Glucometer, POC 197 65 - 199 mg/dL 06/09/2024 8:36 PM EST [facility] Comment:Supplemental ranges: <140 mg/dL before meals <180 mg/dL all other times of the day. Blood CAPILLARY BLOOD / Unknown 06/09/2024 8:36 PM EST 06/09/2024 8:36 PM EST Melida Valdes MD POINT OF CARE TEST O NIKA Performing Organization Address [facility] Co de Phone Number [facility] [place] [address] * POC, GLUCOSE (06/09/2024 5:27 PM EST) Glucometer, POC 174 65 - 199 mg/dL 06/09/2024 5:28 PM EST [facility] Comment:Supplemental ranges: <140 mg/dL before meals <180 mg/dL all other times of the day. Blood CAPILLARY BLOOD / Unknown 06/09/2024 5:27 PM EST 06/09/2024 5:28 PM EST Melida Valdes MD POINT OF CARE TEST O NIKA Performing Organization Address [facility] Phone Number [facility] [place] [address] * (ABNORMAL) POC, GLUCOSE (06/09/2024 11:52 AM [...] TEST O NIKA Performing Organization Address [facility] Co de Phone Number [facility] [place] [address] * Potassium (06/09/2024 8:25 AM EST) Potassium 4.6 3.5 - 5.0 mMol/L 06/09/2024 10:09 AM EST [facility] Blood VENOUS BLOOD SPECIMEN / Unknown Venipuncture / Unknown 06/09/2024 8:25 AM EST 06/09/2024 8:42 AM EST Shahnaz Scanlon MD CHEMISTRY ORDERABLES Performing Organization Address [facility] Co de Phone Number [facility] [place] [address] * (ABNORMAL) POC, GLUCOSE (06/09/2024 8:10 AM [...] TEST O NIKA Performing Organization Address [facility] Co de Phone Number [facility] [place] [address] * POC, GLUCOSE (06/09/2024 4:40 AM EST) Glucometer, POC 131 65 - 199 mg/dL 06/09/2024 4:40 AM EST [facility] Comment:Supplemental ranges: <140 mg/dL before meals <180 mg/dL all other times of the day. Blood CAPILLARY BLOOD / Unknown 06/09/2024 4:40 AM EST 06/09/2024 4:41 AM EST Melida Valdes MD POINT OF CARE TEST O NIKA Performing Organization Address [facility] Co de Phone Number [facility] [place] [address] * Heparin (unfractionated) Level (06/09/2024 2:12 AM EST) UF Heparin 0.55 IU/mL 06/09/2024 2:33 AM [facility] Comment: Heparin (anti-Xa) levels should be determined in a plasma sample that has been drawn 6 hours after a dose change to approximate steady-state for continuous heparin infusions. Indication specific Heparin (anti-Xa) levels based on order set selection: Acute DVT or PE prevention: ? 0.3-0.7 IU/mL Thrombosis Prevention (e.g. atrial fibrillation, calrence-procedural bridging, mechanical valves): ? 0.3-0.7 IU/mL Acute Coronary Syndrome: ? 0.3-0.7 IU/mL Stroke Indications: ? 0.3-0.5 IU/mL Ultra-low intensity (select indications in cardiac surgery): ? 0.1-0.3 IU/mL Blood VENOUS BLOOD SPECIMEN / Unknown Venipuncture / Unknown 06/09/2024 2:12 AM EST 06/09/2024 2:21 AM EST Shahnaz Scanlon MD HEMATOLOGY ORDERABLE S [facility] [place] [id number] * (ABNORMAL) CBC (with Diff) (06/09/2024 2:12 AM EST) White Blood Cell 9.80(H) 4.00 - 9.50 x10(3)/mc L 06/09/2024 2:44 AM EST [facility] Red Blood Cell 5.18 4.58 - 5.54 x10(6)/mc L 06/09/2024 2:44 AM [facility] Hemoglobin 15.5 13.7 - 16.5 g/dL 06/09/2024 2:44 AM [facility] Hematocrit 47.4 40.5 - 48.5 % 06/09/2024 2:44 AM [facility] Mean Cell Volume 91.5 82.9 - 93.1 fL 06/09/2024 2:44 AM EST [facility] Mean Cell Hemoglobin 29.9 27.5 - 32.1 pg 06/09/2024 2:44 AM [facility] Mean Cell Hemoglobin Concentration 32.7 32.0 - 35.7 g/dL 06/09/2024 2:44 AM [facility] Platelet 205 145 - 357 x10(3)/mc L 06/09/2024 2:44 AM [facility] Mean Platelet Volume 9.7 7.6 - 12.9 fL 06/09/2024 2:44 AM [facility] RDW Standard Deviation 47.7(H) 36.0 - 45.0 fL 06/09/2024 2:44 AM [facility] RDW coefficient of variation 14.1(H) 11.4 - 13.8 % 06/09/2024 2:44 AM [facility] NRBC% auto 0.0 % 06/09/2024 2:44 AM [facility] NRBC Absolute <0.01 <0.01 x10(3)/mc L 06/09/2024 2:44 AM [facility] Neutrophil % 53.0 % 06/09/2024 2:44 AM [facility] Neutrophil Absolute (ANC) - Automated 5.19 1.70 - 6.10 x10(3)/mc L 06/09/2024 2:44 AM [facility] Lymph % 31.6 % 06/09/2024 2:44 AM [facility] Lymph Absolute 3.10 0.90 - 3.20 x10(3)/mc L 06/09/2024 2:44 AM [facility] Monocyte % 11.0 % 06/09/2024 2:44 AM [facility] Monocyte Absolute 1.08(H) 0.30 - 0.90 x10(3)/mc L 06/09/2024 2:44 AM [facility] Eos % 2.9 % 06/09/2024 2:44 AM [facility] Eos Absolute 0.28 0.00 - 0.40 x10(3)/mc L 06/09/2024 2:44 AM EST [facility] Basophil % 0.9 % 06/09/2024 2:44 AM EST [facility] Baso Absolute 0.09 0.00 - 0.10 x10(3)/mc L 06/09/2024 2:44 AM EST [facility] Immature Gran % 0.6 % 2:44 AM EST [facility] Immature Gran Absolute 0.06(H) 0.00 - 0.04 x10(3)/mc L 06/09/2024 2:44 AM EST [facility] Blood VENOUS BLOOD SPECIMEN / Unknown Venipuncture / Unknown 06/09/2024 2:12 AM EST 06/09/2024 2:21 AM EST Shahnaz Scanlon MD HEMATOLOGY ORDERABLE S [facility] [place] [address] * Magnesium (06/09/2024 2:12 AM EST) Magnesium 0.83 0.69 - 1.07 mMol/L 06/09/2024 2:52 AM EST [facility] Blood VENOUS BLOOD SPECIMEN / Unknown Venipuncture / Unknown 06/09/2024 2:12 AM EST 06/09/2024 2:22 AM EST Shahnaz Scanlon MD CHEMISTRY ORDERABLES [facility] [place] [address] * (ABNORMAL) Basic Metabolic Panel (06/09/2024 2:12 AM EST) Glucose 147 65 - 199 mg/dL 06/09/2024 2:52 AM EST [facility] Comment:Glucose Concentratio n >=200 mg/dL plus symptoms is consistent with Diabetes Mellitus. Blood Urea Nitrogen 24(H) 10 - 20 mg/dL 06/09/2024 2:52 AM [facility] Creatinine 1.11 0.80 - 1.50 mg/dL 06/09/2024 2:52 AM [facility] Sodium 136 135 - 145 mMol/L 06/09/2024 2:52 AM [facility] Potassium 3.9 3.5 - 5.0 mMol/L 06/09/2024 2:52 AM [facility] Chloride 98 98 - 107 mMol/L 06/09/2024 2:52 AM [facility] Carbon Dioxide 27 22 - 31 mMol/L 06/09/2024 2:52 AM [facility] Anion Gap 11 5 - 15 mMol/L 06/09/2024 2:52 AM [facility] Calcium 9.7 8.5 - 10.5 mg/dL 06/09/2024 2:52 AM [facility] Est Glomerular Filtration Rate - Male 73 mL/min/1. 73 m?? 06/09/2024 2:52 AM [facility] Comment: This [...] CHEMISTRY ORDERABLES [facility] [place] [address] * POC, GLUCOSE (06/09/2024 12:34 AM EST) Glucometer, POC 186 65 - 199 mg/dL 06/09/2024 12:34 AM EST [facility] Comment:Supplemental ranges: <140 mg/dL before meals <180 mg/dL all other times of the day. Blood CAPILLARY BLOOD / Unknown 06/09/2024 12:34 AM EST 06/09/2024 12:34 AM EST Melida Valdes MD POINT OF CARE TEST O NIKA Performing Organization Address City/[facility]/ZIP Co de Phone Number [facility] [place] [address] * POC, GLUCOSE (06/08/2024 8:27 PM EST) [...] O NIKA [facility] [place] [address] * POC, GLUCOSE (06/08/2024 4:16 PM EST) Glucometer, POC 159 65 - 199 mg/dL 06/08/2024 4:16 PM EST [facility] Comment:Supplemental ranges: <140 mg/dL before meals <180 mg/dL all other times of the day. Blood CAPILLARY BLOOD / Unknown 06/08/2024 4:16 PM EST 06/08/2024 4:16 PM EST Melida Valdes MD POINT OF CARE TEST O RDERABLES Performing Organization Address [facility] Co de Phone Number [facility] [place] [address] * (ABNORMAL) POC, GLUCOSE (06/08/2024 12:35 PM [...] TEST O NIKA Performing Organization Address [facility] Co de Phone Number [facility] [place] [address] * POC, GLUCOSE (06/08/2024 8:10 AM EST) Glucometer, POC 190 65 - 199 mg/dL 06/08/2024 8:14 AM EST [facility] Comment:Supplemental ranges: <140 mg/dL before meals <180 mg/dL all other times of the day. Blood CAPILLARY BLOOD / Unknown 06/08/2024 8:10 AM EST 06/08/2024 8:14 AM EST Melida Valdes MD POINT OF CARE TEST O NIKA Performing Organization Address [facility] Co de Phone Number [facility] [place] [address] * POC, GLUCOSE (06/08/2024 4:09 AM EST) Glucometer, POC 151 65 - 199 mg/dL 06/08/2024 4:10 AM EST [facility] Comment:Supplemental ranges: <140 mg/dL before meals <180 mg/dL all other times of the day. Blood CAPILLARY BLOOD / Unknown 06/08/2024 4:09 AM EST 06/08/2024 4:10 AM EST Melida Valdes MD POINT OF CARE TEST O RDERABLES Performing Organization Address [facility] Co de Phone Number [facility] [place] [address] * Heparin (unfractionated) Level (06/08/2024 3:21 AM [...] MD HEMATOLOGY ORDERABLE S Performing Organization Address City/[facility]/ZIP Co de Phone Number [facility] [place] [address] * (ABNORMAL) CBC (with Diff) (06/08/2024 3:21 AM EST) White Blood Cell 9.92(H) 4.00 - 9.50 x10(3)/mc L 06/08/2024 3:34 AM EST [facility] Red Blood Cell 5.09 4.58 - 5.54 x10(6)/mc L 06/08/2024 3:34 AM [facility] Hemoglobin 15.1 13.7 - 16.5 g/dL 06/08/2024 3:34 AM [facility] Hematocrit 46.7 40.5 - 48.5 % 06/08/2024 3:34 AM [facility] Mean Cell Volume 91.7 82.9 - 93.1 fL 06/08/2024 3:34 AM [facility] Mean Cell Hemoglobin 29.7 27.5 - 32.1 pg 06/08/2024 3:34 AM [facility] Mean Cell Hemoglobin Concentration 32.3 32.0 - 35.7 g/dL 06/08/2024 3:34 AM [facility] Platelet 203 145 - 357 x10(3)/mc L 06/08/2024 3:34 AM [facility] Mean Platelet Volume 9.4 7.6 - 12.9 fL 06/08/2024 3:34 AM [facility] RDW Standard Deviation 46.9(H) 36.0 - 45.0 fL 06/08/2024 3:34 AM [facility] RDW coefficient of variation 13.8 11.4 - 13.8 % 06/08/2024 3:34 AM [facility] NRBC% auto 0.0 % 06/08/2024 3:34 AM [facility] NRBC Absolute <0.01 <0.01 x10(3)/mc L 06/08/2024 3:34 AM [facility] Neutrophil % 56.8 % 06/08/2024 3:34 AM [facility] Neutrophil Absolute (ANC) - Automated 5.63 1.70 - 6.10 x10(3)/mc L 06/08/2024 3:34 AM [facility] Lymph % 27.3 % 06/08/2024 3:34 AM [facility] Lymph Absolute 2.71 0.90 - 3.20 x10(3)/mc L 06/08/2024 3:34 AM [facility] Monocyte % 11.2 % 06/08/2024 3:34 AM [facility] Monocyte Absolute 1.11(H) 0.30 - 0.90 x10(3)/mc L 06/08/2024 3:34 AM [facility] Eos % 3.4 % 06/08/2024 3:34 AM [facility] Eos Absolute 0.34 0.00 - 0.40 x10(3)/mc L 06/08/2024 3:34 AM [facility] Basophil % 0.8 % 06/08/2024 3:34 AM [facility] Baso Absolute 0.08 0.00 - 0.10 x10(3)/mc L 06/08/2024 3:34 AM [facility] Immature Gran % 0.5 % 3:34 AM [facility] Immature Gran Absolute 0.05(H) 0.00 - 0.04 x10(3)/mc L 06/08/2024 3:34 AM [facility] Blood VENOUS BLOOD SPECIMEN / Unknown Venipuncture / Unknown 06/08/2024 3:21 AM EST 06/08/2024 3:27 AM EST Shahnaz Scanlon MD HEMATOLOGY ORDERABLE S Performing Organization Address City/State/[facility] Co de Phone Number [facility] [place] [address] * Magnesium (06/08/2024 3:21 AM EST) Magnesium 0.84 0.69 - 1.07 mMol/L 06/08/2024 3:59 AM [facility] Blood VENOUS BLOOD SPECIMEN / Unknown Venipuncture / Unknown 06/08/2024 3:21 AM EST 06/08/2024 3:27 AM EST Shahnaz Scanlon MD CHEMISTRY ORDERABLES [facility] [place] [address] * (ABNORMAL) Basic Metabolic Panel (06/08/2024 3:21 AM EST) Glucose 173 65 - 199 mg/dL 06/08/2024 3:59 AM [facility] Comment:Glucose Concentratio n >=200 mg/dL plus symptoms is consistent with Diabetes Mellitus. Blood Urea Nitrogen 25(H) 10 - 20 mg/dL 06/08/2024 3:59 AM [facility] Creatinine 1.09 0.80 - 1.50 mg/dL 06/08/2024 3:59 AM [facility] Sodium 135 135 - 145 mMol/L 06/08/2024 3:59 AM [facility] Potassium 4.2 3.5 - 5.0 mMol/L 06/08/2024 3:59 AM [facility] Chloride 98 98 - 107 mMol/L 06/08/2024 3:59 AM [facility] Carbon Dioxide 25 22 - 31 mMol/L 06/08/2024 3:59 AM [facility] Anion Gap 12 5 - 15 mMol/L 06/08/2024 3:59 AM [facility] Calcium 9.4 8.5 - 10.5 mg/dL 06/08/2024 3:59 AM [facility] Est Glomerular Filtration Rate - Male 74 mL/min/1. 73 m?? 06/08/2024 3:59 AM [facility] Comment: This [...] Scanlon MD CHEMISTRY ORDERABLES Performing Organization Address City/[facility]/ZIP Co de Phone Number [facility] [place] [address] * POC, GLUCOSE (06/07/2024 11:57 PM EST) Glucometer, POC 188 65 - 199 mg/dL 06/07/2024 11:57 PM EST [facility] Comment:Supplemental ranges: <140 mg/dL before meals <180 mg/dL all other times of the day. Blood CAPILLARY BLOOD / Unknown 06/07/2024 11:57 PM EST 06/07/2024 11:58 PM EST Melida Valdes MD POINT OF CARE TEST O RDERABLES Performing Organization Address [facility] Co de Phone Number [facility] [place] [address] * POC, GLUCOSE (06/07/2024 8:05 PM EST) Glucometer, POC 118 65 - 199 mg/dL 06/07/2024 8:06 PM EST [facility] Comment:Supplemental ranges: <140 mg/dL before meals <180 mg/dL all other times of the day. Blood CAPILLARY BLOOD / Unknown 06/07/2024 8:05 PM EST 06/07/2024 8:06 PM EST Melida Valdes MD POINT OF CARE TEST O RDERABLES Performing Organization Address City/[facility]/ZIP Co de Phone Number [facility] [place] [address] * Potassium (06/07/2024 5:22 PM EST) Potassium 4.6 3.5 - 5.0 mMol/L 06/07/2024 5:59 PM EST [facility] Blood VENOUS BLOOD SPECIMEN / Unknown Venipuncture / Unknown 06/07/2024 5:22 PM EST 06/07/2024 5:26 PM EST Shahnaz Scanlon MD CHEMISTRY ORDERABLES Performing Organization Address [facility] Co de Phone Number [facility] [place] [address] * POC, GLUCOSE (06/07/2024 4:31 PM EST) Pathologist [facility] Glucometer, POC 174 65 - 199 mg/dL 06/07/2024 4:34 PM EST [facility] Comment:Supplemental ranges: <140 mg/dL before meals <180 mg/dL all other times of the day. Blood CAPILLARY BLOOD / Unknown 06/07/2024 4:31 PM EST 06/07/2024 4:34 PM EST Melida Valdes MD POINT OF CARE TEST O RDERABLES Performing Organization Address [facility] Co de Phone Number [facility] [place] [address] * MRI Cardiac Morphology Function wwo Contrast (06/07/2024 1:10 PM EST) WORKSTATION ID [id number] RAD Anatomical Region Laterality Modality Magnetic Resonan [...] - Mildly dilated left ventricle size with sizysmqe-uw-qudbqsmu decreased LV systolic function. ??LV ejection fraction [...] questions please contact the health child care supervisor that requested your imaging first. ? Electronically signed by: Kriss Alonzo MD, [facility] ([phone]), at 06/07/2024 2:41 PM Narrative 06/07/2024 2:41 [...] VENTRICLE: Mildly dilated left ventricle size with bukyzdqz-bu-okdzycng decreased LV systolic function. ??LV ejection fraction [...] VENTRICLE: Mildly dilated left ventricle size with wtolpmem-hh-darneidm decreasedLV systolic function. LV ejection fraction is [...] - Mildly dilated left ventricle size with jnynkasc-la-bdspgmys decreasedLV systolic function. LV ejection fraction is [...] have questions please contactthe health child care supervisor that requested your imaging first. Electronically signed by: Kriss Alonzo MD, [facility]([phone]), at 06/07/2024 2:41 PM Delroy Fofana MD [...] TEST O NIKA Performing Organization Address [facility]/ZIP Co de Phone Number [facility] [place] [address] * (ABNORMAL) POC, GLUCOSE (06/07/2024 11:03 AM EST) Glucometer, POC 250(H) 65 - 199 mg/dL 06/07/2024 11:04 AM EST [facility] Comment:Supplemental ranges: <140 mg/dL before meals <180 mg/dL all other times of the day. Blood CAPILLARY BLOOD / Unknown 06/07/2024 11:03 AM EST 06/07/2024 11:04 AM EST Melida Valdes MD POINT OF CARE TEST O NIKA Performing Organization Address City/[facility]/ZIP Co de Phone Number [facility] [place] [address] * Potassium (06/07/2024 9:44 AM EST) Pathologist [facility] Potassium 4.7 3.5 - 5.0 mMol/L 06/07/2024 10:23 AM EST [facility] Blood VENOUS BLOOD SPECIMEN / Unknown Venipuncture / Unknown 06/07/2024 9:44 AM EST 06/07/2024 9:57 AM EST Shahnaz Scanlon MD CHEMISTRY ORDERABLES Performing Organization Address City/[facility]/ZIP Co de Phone Number [facility] [place] [address] * POC, GLUCOSE (06/07/2024 7:45 AM EST) [facility] Glucometer, POC 175 65 - 199 mg/dL 06/07/2024 7:45 AM EST [facility] Comment:Supplemental ranges: <140 mg/dL before meals <180 mg/dL all other times of the day. Blood CAPILLARY BLOOD / Unknown 06/07/2024 7:45 AM EST 06/07/2024 7:46 AM EST Melida Valdes MD POINT OF CARE TEST O RDERABLES Performing Organization Address [facility]/ZIP Co de Phone Number [facility] [place] [address] * XR Chest PA & Lateral (Generic) (06/07/2024 7:03 AM EST) Pathologist [facility] WORKSTATION ID [id number] DH RAD Anatomical Region Laterality Modality Chest [...] questions please contact the health child care supervisor that requested your imaging first. ? Electronically signed by: Stuart Aponte MD, [facility] ??([phone]), at 06/07/2024 10:45 AM Narrative 06/07/2024 10:45 [...] have questions please contactthe health child care supervisor that requested your imaging first. Electronically signed by: Stuart Aponte MD, [facility]([phone]), at 06/07/2024 10:45 AM Shahnaz Scanlon MD [...] TEST O RDERABLES Performing Organization Address City/State/[facility] Co de Phone Number [facility] [place] [address] * Heparin (unfractionated) Level (06/07/2024 2:41 AM [...] ORDERABLE S [facility] [place] [address] * (ABNORMAL) CBC (with Diff) (06/07/2024 2:41 AM EST) White Blood Cell 10.06(H) 4.00 - 9.50 x10(3)/mc L 06/07/2024 2:58 AM [facility] Red Blood Cell 5.02 4.58 - 5.54 x10(6)/mc L 06/07/2024 2:58 AM [facility] Hemoglobin 14.8 13.7 - 16.5 g/dL 06/07/2024 2:58 AM [facility] Hematocrit 46.2 40.5 - 48.5 % 06/07/2024 2:58 AM [facility] Mean Cell Volume 92.0 82.9 - 93.1 fL 06/07/2024 2:58 AM [facility] Mean Cell Hemoglobin 29.5 27.5 - 32.1 pg 06/07/2024 2:58 AM [facility] Mean Cell Hemoglobin Concentration 32.0 32.0 - 35.7 g/dL 06/07/2024 2:58 AM [facility] Platelet 202 145 - 357 x10(3)/mc L 06/07/2024 2:58 AM [facility] Mean Platelet Volume 9.6 7.6 - 12.9 fL 06/07/2024 2:58 AM [facility] RDW Standard Deviation 46.3(H) 36.0 - 45.0 fL 06/07/2024 2:58 AM [facility] RDW coefficient of variation 13.8 11.4 - 13.8 % 06/07/2024 2:58 AM [facility] NRBC% auto 0.0 % 06/07/2024 2:58 AM [facility] NRBC Absolute <0.01 <0.01 x10(3)/mc L 06/07/2024 2:58 AM [facility] Neutrophil % 55.9 % 06/07/2024 2:58 AM [facility] Neutrophil Absolute (ANC) - Automated 5.62 1.70 - 6.10 x10(3)/mc L 06/07/2024 2:58 AM [facility] Lymph % 28.3 % 06/07/2024 2:58 AM [facility] Lymph Absolute 2.85 0.90 - 3.20 x10(3)/mc L 06/07/2024 2:58 AM [facility] Monocyte % 10.8 % 06/07/2024 2:58 AM [facility] Monocyte Absolute 1.09(H) 0.30 - 0.90 x10(3)/mc L 06/07/2024 2:58 AM [facility] Eos % 3.6 % 06/07/2024 2:58 AM [facility] Eos Absolute 0.36 0.00 - 0.40 x10(3)/mc L 06/07/2024 2:58 AM [facility] Basophil % 0.8 % 06/07/2024 2:58 AM [facility] Baso Absolute 0.08 0.00 - 0.10 x10(3)/mc L 06/07/2024 2:58 AM [facility] Immature Gran % 0.6 % 2:58 AM [facility] Immature Gran Absolute 0.06(H) 0.00 - 0.04 x10(3)/mc L 06/07/2024 2:58 AM [facility] Blood VENOUS BLOOD SPECIMEN / Unknown Venipuncture / Unknown 06/07/2024 2:41 AM EST 06/07/2024 2:52 AM EST Shahnaz Scanlon MD HEMATOLOGY ORDERABLE S [facility] [place] [address] * Magnesium (06/07/2024 2:41 AM EST) Magnesium 0.92 0.69 - 1.07 mMol/L 06/07/2024 3:25 AM [facility] Blood VENOUS BLOOD SPECIMEN / Unknown Venipuncture / Unknown 06/07/2024 2:41 AM EST 06/07/2024 2:51 AM EST Shahnaz Scanlon MD CHEMISTRY ORDERABLES [facility] [place] [address] * (ABNORMAL) Basic Metabolic Panel (06/07/2024 2:41 AM EST) Pathologist [facility] Glucose 140 65 - 199 mg/dL 06/07/2024 3:25 AM [facility] Comment:Glucose Concentratio n >=200 mg/dL plus symptoms is consistent with Diabetes Mellitus. Blood Urea Nitrogen 26(H) 10 - 20 mg/dL 06/07/2024 3:25 AM [facility] Creatinine 1.06 0.80 - 1.50 mg/dL 06/07/2024 3:25 AM [facility] Sodium 136 135 - 145 mMol/L 06/07/2024 3:25 AM [facility] Potassium 3.8 3.5 - 5.0 mMol/L 06/07/2024 3:25 AM [facility] Chloride 98 98 - 107 mMol/L 06/07/2024 3:25 AM [facility] Carbon Dioxide 28 22 - 31 mMol/L 06/07/2024 3:25 AM [facility] Anion Gap 10 5 - 15 mMol/L 06/07/2024 3:25 AM [facility] Calcium 9.4 8.5 - 10.5 mg/dL 06/07/2024 3:25 AM [facility] Est Glomerular Filtration Rate - Male 77 mL/min/1. 73 m?? 06/07/2024 3:25 AM EST [facility] Scanlon MD CHEMISTRY ORDERABLES Performing Organization Address City/[facility]/ZIP Co de Phone Number [facility] [place] [address] * POC, GLUCOSE (06/07/2024 12:08 AM EST) Glucometer, POC 182 65 - 199 mg/dL 06/07/2024 12:09 AM EST [facility] Comment:Supplemental ranges: <140 mg/dL before meals <180 mg/dL all other times of the day. Blood CAPILLARY BLOOD / Unknown 06/07/2024 12:08 AM EST 06/07/2024 12:09 AM EST Melida Valdes MD POINT OF CARE TEST O RDERABLES Performing Organization Address City/[facility]/ZIP Co de Phone Number [facility] [place] [address] * POC, GLUCOSE (06/06/2024 8:18 PM EST) Glucometer, POC 143 65 - 199 mg/dL 06/06/2024 8:19 PM EST [facility] Comment:Supplemental ranges: <140 mg/dL before meals <180 mg/dL all other times of the day. Blood CAPILLARY BLOOD / Unknown 06/06/2024 8:18 PM EST 06/06/2024 8:19 PM EST Melida Valdes MD POINT OF CARE TEST O RDERABLES Performing Organization Address City/[facility]/ZIP Co de Phone Number [facility] [place] [address] * POC, GLUCOSE (06/06/2024 3:39 PM EST) Glucometer, POC 147 65 - 199 mg/dL 06/06/2024 3:40 PM EST [facility] Comment:Supplemental ranges: <140 mg/dL before meals <180 mg/dL all other times of the day. Blood CAPILLARY BLOOD / Unknown 06/06/2024 3:39 PM EST 06/06/2024 3:40 PM EST Melida Valdes MD POINT OF CARE TEST O NIKA Performing Organization Address [facility] Co de Phone Number [facility] [place] [address] * Potassium (06/06/2024 2:37 PM EST) Potassium 4.3 3.5 - 5.0 mMol/L 06/06/2024 3:01 PM EST [facility] Blood VENOUS BLOOD SPECIMEN / Unknown Venipuncture / Unknown 06/06/2024 2:37 PM EST 06/06/2024 2:42 PM EST Shahnaz Scanlon MD CHEMISTRY ORDERABLES Performing Organization Address [facility] Co de Phone Number [facility] [place] [address] * (ABNORMAL) POC, GLUCOSE (06/06/2024 1:39 PM EST) Glucometer, POC 317(H) 65 - 199 mg/dL 06/06/2024 1:40 PM EST [facility] Comment:Supplemental ranges: <140 mg/dL before meals <180 mg/dL all other times of the day. Blood CAPILLARY BLOOD / Unknown 06/06/2024 1:39 PM EST 06/06/2024 1:41 PM EST Melida Valdes MD POINT OF CARE TEST O RDERABLES Performing Organization Address City/[facility]/ZIP Co de Phone Number [facility] [place] [address] * (ABNORMAL) POC, GLUCOSE (06/06/2024 11:34 AM EST) Glucometer, POC 264(H) 65 - 199 mg/dL 06/06/2024 11:35 AM EST [facility] Comment:Supplemental ranges: <140 mg/dL before meals <180 mg/dL all other times of the day. Blood CAPILLARY BLOOD / Unknown 06/06/2024 11:34 AM EST 06/06/2024 11:35 AM EST Melida Valdes MD POINT OF CARE TEST O RDERABLES Performing Organization Address City/[facility]/ZIP Co de Phone Number [facility] [place] [address] * Potassium (06/06/2024 10:17 AM EST) Potassium 4.3 3.5 - 5.0 mMol/L 06/06/2024 10:46 AM EST [facility] Blood VENOUS BLOOD SPECIMEN / Unknown Venipuncture / Unknown 06/06/2024 10:17 AM EST 06/06/2024 10:22 AM EST Shahnaz Scanlon MD CHEMISTRY ORDERABLES Performing Organization Address City/[facility]/ZIP Co de Phone Number [facility] [place] [address] * POC, GLUCOSE (06/06/2024 7:57 AM EST) Glucometer, POC 195 65 - 199 mg/dL 06/06/2024 8:03 AM EST [facility] Comment:Supplemental ranges: <140 mg/dL before meals <180 mg/dL all other times of the day. Blood CAPILLARY BLOOD / Unknown 06/06/2024 7:57 AM EST 06/06/2024 8:03 AM EST Melida Valdes MD POINT OF CARE TEST O NIKA Performing Organization Address [facility] Co de Phone Number [facility] [place] [address] * POC, GLUCOSE (06/06/2024 6:53 AM EST) Glucometer, POC 187 65 - 199 mg/dL 06/06/2024 6:53 AM EST [facility] Comment:Supplemental ranges: <140 mg/dL before meals <180 mg/dL all other times of the day. Blood CAPILLARY BLOOD / Unknown 06/06/2024 6:53 AM EST 06/06/2024 6:54 AM EST Melida Valdes MD POINT OF CARE TEST Abimael MAHER Performing Organization Address [facility] de Phone Number [facility] [place] [address] * (ABNORMAL) Hemoglobin A1c (06/06/2024 3:33 AM [...] blood cell turnover may not be sales representative raw fibers of glycemic control. Reference Interval: 4.3 - 5.6% 5.7 - 6.4%: Consistent with prediabetes >=6.5%: Consistent with diagnosis of diabetes mellitus Estimated Average Glucose 157 mg/dL 06/06/2024 1:01 PM EST [facility] Blood VENOUS BLOOD SPECIMEN / Unknown Venipuncture / Unknown 06/06/2024 3:33 AM EST 06/06/2024 3:48 AM EST Alejandra Baumann APRN CHEMISTRY ORDERAB LES Performing Organization Address [facility] Co de Phone Number [facility] [place] [address] * Heparin (unfractionated) Level (06/06/2024 3:33 AM [...] HEMATOLOGY ORDERABLE S Performing Organization Address [facility] Co de Phone Number [facility] [place] [address] * (ABNORMAL) CBC (with Diff) (06/06/2024 3:33 AM [facility]) [facility] White Blood Cell 9.81(H) 4.00 - 9.50 x10(3)/mc L 06/06/2024 3:54 AM [facility] Red Blood Cell 4.91 4.58 - 5.54 x10(6)/mc L 06/06/2024 3:54 AM [facility] Hemoglobin 14.6 13.7 - 16.5 g/dL 06/06/2024 3:54 AM [facility] Hematocrit 45.4 40.5 - 48.5 % 06/06/2024 3:54 AM [facility] Mean Cell Volume 92.5 82.9 - 93.1 fL 06/06/2024 3:54 AM [facility] Mean Cell Hemoglobin 29.7 27.5 - 32.1 pg 06/06/2024 3:54 AM [facility] Mean Cell Hemoglobin Concentration 32.2 32.0 - 35.7 g/dL 06/06/2024 3:54 AM [facility] Platelet 199 145 - 357 x10(3)/mc L 06/06/2024 3:54 AM [facility] Mean Platelet Volume 9.5 7.6 - 12.9 fL 06/06/2024 3:54 AM [facility] RDW Standard Deviation 47.2(H) 36.0 - 45.0 fL 06/06/2024 3:54 AM [facility] RDW coefficient of variation 13.9(H) 11.4 - 13.8 % 06/06/2024 3:54 AM [facility] NRBC% auto 0.0 % 06/06/2024 3:54 AM [facility] NRBC Absolute <0.01 <0.01 x10(3)/mc L 06/06/2024 3:54 AM [facility] Neutrophil % 56.8 % 06/06/2024 3:54 AM [facility] Neutrophil Absolute (ANC) - Automated 5.57 1.70 - 6.10 x10(3)/mc L 06/06/2024 3:54 AM [facility] Lymph % 27.6 % 06/06/2024 3:54 AM [facility] Lymph Absolute 2.71 0.90 - 3.20 x10(3)/mc L 06/06/2024 3:54 AM [facility] Monocyte % 11.1 % 06/06/2024 3:54 AM [facility] Monocyte Absolute 1.09(H) 0.30 - 0.90 x10(3)/mc L 06/06/2024 3:54 AM [facility] Eos % 3.0 % 06/06/2024 3:54 AM [facility] Eos Absolute 0.29 0.00 - 0.40 x10(3)/mc L 06/06/2024 3:54 AM [facility] Basophil % 0.9 % 06/06/2024 3:54 AM [facility] Baso Absolute 0.09 0.00 - 0.10 x10(3)/mc L 06/06/2024 3:54 AM [facility] Immature Gran % 0.6 % 3:54 AM [facility] Immature Gran Absolute 0.06(H) 0.00 - 0.04 x10(3)/mc L 06/06/2024 3:54 AM [facility] Blood VENOUS BLOOD SPECIMEN / Unknown Venipuncture / Unknown 06/06/2024 3:33 AM EST 06/06/2024 3:48 AM EST Shahnaz Scanlon MD HEMATOLOGY ORDERABLE S [facility] [place] [address] * Magnesium (06/06/2024 3:33 AM EST) Magnesium 0.92 0.69 - 1.07 mMol/L 06/06/2024 4:17 AM [facility] Blood VENOUS BLOOD SPECIMEN / Unknown Venipuncture / Unknown 06/06/2024 3:33 AM EST 06/06/2024 3:47 AM EST Shahnaz Scanlon MD CHEMISTRY ORDERABLES [facility] [place] [address] * (ABNORMAL) Basic Metabolic Panel (06/06/2024 3:33 AM EST) Glucose 190 65 - 199 mg/dL 06/06/2024 4:17 AM [facility] Comment:Glucose Concentratio n >=200 mg/dL plus symptoms is consistent with Diabetes Mellitus. Blood Urea Nitrogen 27(H) 10 - 20 mg/dL 06/06/2024 4:17 AM [facility] Creatinine 1.12 0.80 - 1.50 mg/dL 06/06/2024 4:17 AM [facility] Sodium 136 135 - 145 mMol/L 06/06/2024 4:17 AM [facility] Potassium 4.0 3.5 - 5.0 mMol/L 06/06/2024 4:17 AM [facility] Chloride 97(L) 98 - 107 mMol/L 06/06/2024 4:17 AM [facility] Carbon Dioxide 26 22 - 31 mMol/L 06/06/2024 4:17 AM [facility] Anion Gap 13 5 - 15 mMol/L 06/06/2024 4:17 AM [facility] Calcium 9.1 8.5 - 10.5 mg/dL 06/06/2024 4:17 AM [facility] Est Glomerular Filtration Rate - Male 72 mL/min/1. 73 m?? 06/06/2024 4:17 AM [facility] Comment: This [...] MD CHEMISTRY ORDERABLES Performing Organization Address [facility]/ZIP Co de Phone Number [facility] [place] [address] * (ABNORMAL) POC, GLUCOSE (06/05/2024 10:31 PM [...] O RDERABLES [facility] [place] [address] * (ABNORMAL) POC, GLUCOSE (06/05/2024 4:22 PM EDT) Glucometer, POC 205(H) 65 - 199 mg/dL 06/05/2024 4:22 PM EDT [facility] Comment:Supplemental ranges: <140 mg/dL before meals <180 mg/dL all other times of the day. Blood CAPILLARY BLOOD / Unknown 06/05/2024 4:22 PM EDT 06/05/2024 4:23 PM EDT Melida Valdes MD POINT OF CARE TEST O NIKA Performing Organization Address City/[facility]/ZIP Co de Phone Number [facility] [place] [address] * (ABNORMAL) POC, GLUCOSE (06/05/2024 11:34 AM EDT) Glucometer, POC 211(H) 65 - 199 mg/dL 06/05/2024 11:34 AM EDT [facility] Comment:Supplemental ranges: <140 mg/dL before meals <180 mg/dL all other times of the day. Blood CAPILLARY BLOOD / Unknown 06/05/2024 11:34 AM EDT 06/05/2024 11:34 AM EDT Melida Valdes MD POINT OF CARE TEST O NIKA Performing Organization Address City/[facility]/ZIP Co de Phone Number [facility] [place] [address] * Potassium (06/05/2024 9:04 AM EDT) Potassium 4.3 3.5 - 5.0 mMol/L 06/05/2024 9:50 AM EDT [facility] Blood VENOUS BLOOD SPECIMEN / Unknown Venipuncture / Unknown 06/05/2024 9:04 AM EDT 06/05/2024 9:21 AM EDT Shahnaz Scanlon MD CHEMISTRY ORDERABLES Performing Organization Address City/[facility]/ZIP Co de Phone Number [facility] [place] [address] * POC, GLUCOSE (06/05/2024 7:27 AM EDT) Glucometer, POC 166 65 - 199 mg/dL 06/05/2024 7:27 AM EDT [facility] Comment:Supplemental ranges: <140 mg/dL before meals <180 mg/dL all other times of the day. Blood CAPILLARY BLOOD / Unknown 06/05/2024 7:27 AM EDT 06/05/2024 7:27 AM EDT Melida Valdes MD POINT OF CARE TEST O RDERABLES Performing Organization Address [facility] Co de Phone Number [facility] [place] [address] * Heparin (unfractionated) Level (06/05/2024 3:44 AM [...] HEMATOLOGY ORDERABLE S Performing Organization Address [facility]/ZIP Co de Phone Number [facility] [place] [address] * (ABNORMAL) CBC (with Diff) (06/05/2024 3:44 AM EDT) White Blood Cell 10.83(H) 4.00 - 9.50 x10(3)/mc L 06/05/2024 3:56 AM [facility] Red Blood Cell 5.07 4.58 - 5.54 x10(6)/mc L 06/05/2024 3:56 AM [facility] Hemoglobin 15.3 13.7 - 16.5 g/dL 06/05/2024 3:56 AM [facility] Hematocrit 46.8 40.5 - 48.5 % 06/05/2024 3:56 AM [facility] Mean Cell Volume 92.3 82.9 - 93.1 fL 06/05/2024 3:56 AM [facility] Mean Cell Hemoglobin 30.2 27.5 - 32.1 pg 06/05/2024 3:56 AM [facility] Mean Cell Hemoglobin Concentration 32.7 32.0 - 35.7 g/dL 06/05/2024 3:56 AM [facility] Platelet 219 145 - 357 x10(3)/mc L 06/05/2024 3:56 AM [facility] Mean [...] 6.10 x10(3)/mc L 06/05/2024 3:56 AM EDT [facility] Lymph % 24.0 % 06/05/2024 3:56 AM EDT [facility] Lymph Absolute 2.60 0.90 - 3.20 x10(3)/mc L 06/05/2024 3:56 AM EDT [facility] Monocyte % 10.9 % 06/05/2024 3:56 AM EDT [facility] Monocyte Absolute 1.18(H) 0.30 - [...] ORDERABLE S [facility] [place] [address] * Magnesium (06/05/2024 3:44 AM EDT) Magnesium 0.92 0.69 - 1.07 mMol/L 06/05/2024 4:20 AM T [facility] Blood VENOUS BLOOD SPECIMEN / Unknown Venipuncture / Unknown 06/05/2024 3:44 AM EDT 06/05/2024 3:50 AM EDT Shahnaz Scanlon MD CHEMISTRY ORDERABLES [facility] [place] [address] * (ABNORMAL) Basic Metabolic Panel (06/05/2024 3:44 AM EDT) Glucose 155 65 - 199 mg/dL 06/05/2024 4:20 AM T [facility] Comment:Glucose Concentratio n >=200 mg/dL plus symptoms is consistent with Diabetes Mellitus. Blood Urea Nitrogen 25(H) 10 - 20 mg/dL 06/05/2024 4:20 AM EDT [facility] Creatinine 1.16 0.80 - 1.50 mg/dL 06/05/2024 4:20 AM [facility] Sodium 136 135 - 145 mMol/L 06/05/2024 4:20 AM [facility] Potassium 3.9 3.5 - 5.0 mMol/L 06/05/2024 4:20 AM [facility] Chloride 95(L) 98 - 107 mMol/L 06/05/2024 4:20 AM [facility] Carbon Dioxide 29 22 - 31 mMol/L 06/05/2024 4:20 AM [facility] Anion Gap 12 5 - 15 mMol/L 06/05/2024 4:20 AM [facility] Calcium 9.2 8.5 - 10.5 mg/dL 06/05/2024 4:20 AM [facility] Est Glomerular Filtration Rate - Male 69 mL/min/1. 73 m?? 06/05/2024 4:[facility] Comment: This patient's estimated [...] Scanlon MD CHEMISTRY ORDERABLES Performing Organization Address City/[facility]/ZIP Co de Phone Number [facility] [place] [address] * Potassium (06/04/2024 10:34 PM EDT) Potassium 3.7 3.5 - 5.0 mMol/L 06/04/2024 11:03 PM EDT [facility] Blood VENOUS BLOOD SPECIMEN / Unknown Venipuncture / Unknown 06/04/2024 10:34 PM EDT 06/04/2024 10:39 PM EDT Shahnaz Scanlon MD CHEMISTRY ORDERABLES Performing Organization Address City/[facility]/ZIP Co de Phone Number [facility] [place] [address] * POC, GLUCOSE (06/04/2024 7:43 PM EDT) Glucometer, POC 175 65 - 199 mg/dL 06/04/2024 7:43 PM EDT [facility] Comment:Supplemental ranges: <140 mg/dL before meals <180 mg/dL all other times of the day. Blood CAPILLARY BLOOD / Unknown 06/04/2024 7:43 PM EDT 06/04/2024 7:43 PM EDT Melida Valdes MD POINT OF CARE TEST O RDERAPIETER Performing Organization Address [facility] Co de Phone Number [facility] [place] [address] * Potassium (06/04/2024 4:35 PM EDT) Potassium 4.0 3.5 - 5.0 mMol/L 06/04/2024 5:32 PM EDT [facility] Blood VENOUS BLOOD SPECIMEN / Unknown Venipuncture / Unknown 06/04/2024 4:35 PM EDT 06/04/2024 4:40 PM EDT Shahnaz Scanlon MD CHEMISTRY ORDERABLES Performing Organization Address [facility] Co de Phone Number [facility] [place] [address] * POC, GLUCOSE (06/04/2024 3:26 PM EDT) Glucometer, POC 154 65 - 199 mg/dL 06/04/2024 3:26 PM EDT [facility] Comment:Supplemental ranges: <140 mg/dL before meals <180 mg/dL all other times of the day. Blood CAPILLARY BLOOD / Unknown 06/04/2024 3:26 PM EDT 06/04/2024 3:27 PM EDT Melida Valdes MD POINT OF CARE TEST O NIKA Performing Organization Address [facility]/ZIP Co de Phone Number [facility] [place] [address] * POC, GLUCOSE (06/04/2024 11:09 AM EDT) Glucometer, POC 188 65 - 199 mg/dL 06/04/2024 11:09 AM EDT [facility] Comment:Supplemental ranges: <140 mg/dL before meals <180 mg/dL all other times of the day. Blood CAPILLARY BLOOD / Unknown 06/04/2024 11:09 AM EDT 06/04/2024 11:09 AM EDT Delroy Fofana MD POINT OF CARE TEST ORDERABLES Performing Organization Address [facility] Co de Phone Number [facility] [place] [address] * Heparin (unfractionated) Level (06/04/2024 10:41 AM [...] MD HEMATOLOGY ORDERABLE S Performing Organization Address City/[facility]/ZIP Co de Phone Number [facility] [place] [address] * Potassium (06/04/2024 10:41 AM EDT) Potassium 4.0 3.5 - 5.0 mMol/L 06/04/2024 11:11 AM EDT [facility] Blood VENOUS BLOOD SPECIMEN / Unknown Venipuncture / Unknown 06/04/2024 10:41 AM EDT 06/04/2024 10:46 AM EDT Shahnaz Scanlon MD CHEMISTRY ORDERABLES Performing Organization Address City/[facility]/ZIP Co de Phone Number [facility] [place] [address] * POC, GLUCOSE (06/04/2024 7:11 AM EDT) Glucometer, POC 182 65 - 199 mg/dL 06/04/2024 7:12 AM EDT [facility] Comment:Supplemental ranges: <140 mg/dL before meals <180 mg/dL all other times of the day. Blood CAPILLARY BLOOD / Unknown 06/04/2024 7:11 AM EDT 06/04/2024 7:12 AM EDT Delroy Fofana MD POINT OF CARE TEST ORDERABLES Performing Organization Address [facility] Co de Phone Number [facility] [place] [address] * Heparin (unfractionated) Level (06/04/2024 4:38 AM [...] ORDERABLE S [facility] [place] [address] * (ABNORMAL) CBC (with Diff) (06/04/2024 4:38 AM EDT) White Blood Cell 11.45(H) 4.00 - 9.50 x10(3)/mc L 06/04/2024 5:12 AM EDT [facility] Red Blood Cell 5.35 4.58 - 5.54 x10(6)/mc L 06/04/2024 5:12 AM EDT [facility] Hemoglobin 16.0 13.7 - 16.5 g/dL 06/04/2024 5:12 AM EDT [facility] Hematocrit 49.6(H) 40.5 - 48.5 % 06/04/2024 5:12 AM EDT [facility] Mean Cell Volume 92.7 82.9 - 93.1 fL 06/04/2024 5:12 AM EDT [facility] Mean Cell Hemoglobin 29.9 27.5 - 32.1 pg 06/04/2024 5:12 AM EDT [facility] Mean Cell Hemoglobin Concentration 32.3 32.0 - 35.7 g/dL 06/04/2024 5:12 AM EDT [facility] Platelet 222 145 - 357 x10(3)/mc L 06/04/2024 5:12 AM EDT [facility] Mean Platelet Volume 9.5 7.6 - 12.9 fL 06/04/2024 5:12 AM EDT [facility] RDW Standard Deviation 47.6(H) 36.0 - 45.0 fL 06/04/2024 5:12 AM EDT [facility] RDW coefficient of variation 14.1(H) [...] - 0.90 x10(3)/mc L 06/04/2024 5:12 AM [facility] Eos % 2.8 % 06/04/2024 5:12 AM [facility] Eos Absolute 0.32 0.00 - 0.40 x10(3)/mc L 06/04/2024 5:12 AM [facility] Basophil % 0.7 % 06/04/2024 5:12 AM [facility] Baso Absolute 0.08 0.00 - 0.10 x10(3)/mc L 06/04/2024 5:12 AM [facility] Immature Gran % 0.5 % 5:12 AM [facility] Immature Gran Absolute 0.06(H) 0.00 - 0.04 x10(3)/mc L 06/04/2024 5:12 AM EDT [facility] Blood VENOUS BLOOD SPECIMEN / Unknown Venipuncture / Unknown 06/04/2024 4:38 AM EDT 06/04/2024 5:07 AM EDT Shahnaz Scanlon MD HEMATOLOGY ORDERABLE S [facility] [place] [address] * Magnesium (06/04/2024 4:38 AM EDT) Magnesium 0.84 0.69 - 1.07 mMol/L 06/04/2024 5:35 AM EDT [facility] Blood VENOUS BLOOD SPECIMEN / Unknown Venipuncture / Unknown 06/04/2024 4:38 AM EDT 06/04/2024 5:07 AM EDT Shahnaz Scanlon MD CHEMISTRY ORDERABLES [facility] [place] [address] * (ABNORMAL) Basic Metabolic Panel (06/04/2024 4:38 [...] - 5.0 mMol/L 06/04/2024 5:35 AM EDT [facility] Chloride 97(L) 98 - 107 mMol/L 06/04/2024 5:35 AM EDT [facility] Carbon Dioxide 29 22 - 31 mMol/L 06/04/2024 5:35 AM EDT [facility] Anion Gap 11 5 - 15 mMol/L 06/04/2024 5:35 AM EDT [facility] Calcium 9.0 8.5 - 10.5 mg/dL 06/04/2024 5:35 AM EDT [facility] Est Glomerular [...] CHEMISTRY ORDERABLES [facility] [place] [address] * Heparin (unfractionated) Level (06/03/2024 8:58 PM [...] HEMATOLOGY ORDERABLE S Performing Organization Address [facility] Co de Phone Number [facility] [place] [address] * POC, GLUCOSE (06/03/2024 8:05 PM EDT) Glucometer, POC 136 65 - 199 mg/dL 06/03/2024 8:05 PM EDT [facility] Comment:Supplemental ranges: <140 mg/dL before meals <180 mg/dL all other times of the day. Blood CAPILLARY BLOOD / Unknown 06/03/2024 8:05 PM EDT 06/03/2024 8:05 PM EDT Delroy Fofana MD POINT OF CARE TEST ORDERABLES Performing Organization Address City/[facility]/ZIP Co de Phone Number [facility] [place] [address] * POC, GLUCOSE (06/03/2024 5:48 PM EDT) Glucometer, POC 191 65 - 199 mg/dL 06/03/2024 5:48 PM EDT [facility] Comment:Supplemental ranges: <140 mg/dL before meals <180 mg/dL all other times of the day. Blood CAPILLARY BLOOD / Unknown 06/03/2024 5:48 PM EDT 06/03/2024 5:49 PM EDT Delroy Fofana MD POINT OF CARE TEST ORDERABLES [facility] [place] [address] * CT Chest wo Contrast (Generic) (06/03/2024 4:33 PM EDT) WORKSTATION ID [id number] RAD Anatomical Region Laterality Modality Chest Computed Tomogra phy Impressions 06/03/2024 4:47 PM EDT Cardiomegaly. Biventricular ICD leads in place. Thank you for letting us participate in the care of this patient. ??If you are a health care provider and have any questions regarding this report, please contact the number below. ??For patients who have questions please contact the health child care supervisor that requested your imaging first. ? Narrative [...] have questions please contactthe health child care supervisor that requested your imaging first. Electronically signed by: Stuart Aponte MD, [facility]([phone]), at 06/03/2024 4:47 PM Bobby Loja MD IMG CT ORDERABLES * Carotid Duplex, Bilateral (06/03/2024 2:19 PM EDT) VB Text Report Department: Vascular Surgery Lab Patient: [id number] (GEORGE MEHTA) CPT: 89183 Referring Physician: BOBBY LOJA ?? Phone: Indications: [...] ORDERABLE S [facility] [place] [address] * POC, GLUCOSE (06/03/2024 11:14 AM EDT) Glucometer, POC 166 65 - 199 mg/dL 06/03/2024 11:14 AM EDT [facility] Comment:Supplemental ranges: <140 mg/dL before meals <180 mg/dL all other times of the day. Blood CAPILLARY BLOOD / Unknown 06/03/2024 11:14 AM EDT 06/03/2024 11:14 AM EDT Delroy Fofana MD POINT OF CARE TEST ORDERABLES Performing Organization Address City/[facility]/ZIP Co de Phone Number [facility] [place] [address] * (ABNORMAL) Troponin-T, High Sensitivity 3 Hour [...] [facility] [place] Test Catalog Troponin - https://one-.testcatalog.org/catalogs/565/files/10150 Reference: Fourth [place] Definition of Myocardial Infarction. Journal of the [place] [employer] 2018;72:3734-0931 Troponin-T, HS 3 hr delta 06/03/2024 10:50 AM EDT [facility] Comment:Delta troponin value not calculated, sample collected outside of delta calculation time limit. Blood VENOUS BLOOD SPECIMEN / Unknown IP Care Team Draw / Unknown 06/03/2024 10:06 AM EDT 06/03/2024 10:15 AM EDT Delroy Fofana MD CHEMISTRY ORDERABLE S [facility] [place] [address] * ECHO COMPLETE W CONTRAST (06/03/2024 8:46 AM EDT) Anatomical Region Laterality Modality Cardiac Other 06/03/2024 6:52 AM EDT Narrative 06/03/2024 10:32 AM EDT [address] [place] [address] ? Echocardiogram Report Name: GEORGE MHETA ?Study Date: 06/03/2024 06:52 AM : 1955 ? Height: 168 cm ? Account: [id number] Age: 69 yrs ? Weight: 102 kg Gender: Male ?BSA: 2.1 m2 Ordering Physician: SHAHNAZ SCANLON Referring Physician: NEHAL QUINTERO Performed By: Sara Kebede RDCS Reason For Study: STEMI Exam Location: [facility]. Interpretation Summary -Left ventricular systolic function [...] fellow performed study of today's date). Procedure Complete-[id number]. Image enhancement Optison was used for left [...] Note Jonnie Jordan MD - 06/03/2024 [address] [place] [address] Echocardiogram Report Name: GEORGE MEHTA Study Date: 406:52 AM : 1955 Height: 168 cm Account: [id number] Age: 69 yrs Weight: 102 kg Gender: Male BSA: 2.1 m2 Ordering Physician: SHAHNAZ SCANLON Referring Physician: NEHAL QUINTERO Performed By: Sara Kebede RDCS Reason For Study: STEMI Exam Location: [facility]. Interpretation Summary -Left ventricular systolic function [...] a fellow performed study of's date). Procedure Complete-[id number]. Image enhancement Optison was used for left [...] [facility] Test Catalog Troponin - https://one-dh.testcatalog.org/catalogs/565/files/19558 Reference: Fourth [place] Definition of Myocardial Infarction. Journal of the [place] College [employer]iology 2018;72:1465-3403 Troponin-T, HS 1 hr delta 5 ng/L [...] ORDERABLE S [facility] [place] [address] * POC, GLUCOSE (06/03/2024 7:54 AM EDT) Glucometer, POC 195 65 - 199 mg/dL 06/03/2024 7:55 AM EDT [facility] Comment:Supplemental ranges: <140 mg/dL before meals <180 mg/dL all other times of the day. Blood CAPILLARY BLOOD / Unknown 06/03/2024 7:54 AM EDT 06/03/2024 7:55 AM EDT Nuha Rojo MD POINT OF CARE TEST ORDERABLES Performing Organization Address City/[facility]/ZIP Co de Phone Number [facility] [place] [address] * (ABNORMAL) Troponin-T, High Sensitivity (06/03/2024 7:39 AM EDT) [facility] Troponin-T, High Sensitivity Initial 284(H) <=22 ng/L [...] troponin value can be found in the [facility] Test Catalog Troponin - https://TestSoup.org/catalogs/565/files/48308 Reference: Fourth [place] Definition of Myocardial Infarction. Journal of the [place] College [employer] Cardiology 2018;72:4462-9293 Blood VENOUS BLOOD SPECIMEN / Unknown IP Care Team Draw / Unknown 06/03/2024 7:39 AM EDT 06/03/2024 7:48 AM EDT Delroy Fofana MD CHEMISTRY ORDERABLE S [facility] [place] [address] * (ABNORMAL) Troponin-T, High Sensitivity 3 Hour (06/03/2024 5:11 AM EDT) Pathologist [facility] Troponin-T, High Sensitivity 254(H) <=22 ng/L 06/03/2024 [...] troponin value can be found in the [facility] Test Catalog Troponin - https://FreeLunched/catalogs/565/files/51748 Reference: Fourth [place] Definition of Myocardial Infarction. Journal of the [place] College [employer] Cardiology 2018;72:8803-3581 Troponin-T, HS 3 hr delta 46 ng/L [...] CHEMISTRY ORDERABLES [facility] [place] [address] * (ABNORMAL) Troponin-T, High Sensitivity 1 Hour (06/03/2024 3:07 AM EDT) Pathologist [facility] Troponin-T, High Sensitivity 218(H) <=22 ng/L 06/03/2024 [...] [facility] [place] Test Catalog Troponin - https://one-dh.testcatalog.org/catalogs/565/files/48171 Reference: Fourth [place] Definition of Myocardial Infarction. Journal of the [place] College [employer] Cardiology 2018;72:9541-7740 Troponin-T, HS 1 hr delta 10 ng/L [...] CHEMISTRY ORDERABLES [facility] [place] [address] * XR Chest One View (06/03/2024 2:41 AM EDT) WORKSTATION ID [id number] RAD Anatomical Region Laterality Modality Chest N/A Digital Radiogra phy Impressions 06/03/2024 3:06 AM EDT No radiographically evident acute cardiopulmonary process. Thank you for letting us participate in the care of this patient. ??If you are a health care provider and have any questions regarding this report, please contact the number below. ??For patients who have questions please contact the health child care supervisor that requested your imaging first. ? Electronically signed by: Corazon Mauro MD, [facility] ([phone]), at 06/03/2024 3:06 AM Narrative 06/03/2024 3:06 [...] have questions please contactthe health child care supervisor that requested your imaging first. Electronically signed by: Corazon Mauro MD, [facility]([phone]), at 06/03/2024 3:06 AM Shahnaz Scanlon MD [...] ORDERABLE S [facility] [place] [address] * (ABNORMAL) Troponin-T, High Sensitivity (06/03/2024 2:13 [...] [facility] Test Catalog Troponin - https://one-.testcatalog.org/catalogs/565/files/63007 Reference: Fourth [place] Definition of Myocardial Infarction. Journal of the [place] College [employer] Cardiology 2018;72:1408-5800 Blood VENOUS BLOOD SPECIMEN / Unknown IP Care Team Draw / Unknown 06/03/2024 2:13 AM EDT 06/03/2024 2:32 AM EDT Shahnaz Scanlon MD CHEMISTRY ORDERABLES Performing Organization Address City/[facility]/ZIP Co de Phone Number [facility] [place] [address] * Magnesium (06/03/2024 2:13 AM EDT) Magnesium 0.86 0.69 - 1.07 mMol/L 06/03/2024 3:02 AM EDT [facility] Blood VENOUS BLOOD SPECIMEN / Unknown IP Care Team Draw / Unknown 06/03/2024 2:13 AM EDT 06/03/2024 2:32 AM EDT Shahnaz Scanlon MD CHEMISTRY ORDERABLES Performing Organization Address City/[facility]/ZIP Co de Phone Number [facility] [place] [address] * Basic Metabolic Panel (06/03/2024 2:13 AM EDT) Glucose 126 65 - 199 mg/dL 06/03/2024 3:02 AM EDT [facility] Comment:Glucose Concentratio n >=200 mg/dL plus symptoms is consistent with Diabetes Mellitus. Blood Urea Nitrogen 20 10 - 20 mg/dL 06/03/2024 3:02 AM EDT [facility] Creatinine 1.13 0.80 - 1.50 mg/dL 06/03/2024 3:02 AM EDT [facility] Sodium 139 135 - 145 mMol/L 06/03/2024 3:02 AM EDT [facility] Potassium 4.2 3.5 - 5.0 mMol/L 06/03/2024 3:02 AM EDT [facility] Chloride 101 98 - 107 mMol/L 06/03/2024 3:02 AM EDT [facility] Carbon Dioxide 26 22 - 31 mMol/L 06/03/2024 3:02 AM EDT [facility] Anion Gap 12 5 - 15 mMol/L 06/03/2024 3:02 AM EDT [facility] Calcium 9.8 8.5 - 10.5 mg/dL 06/03/2024 3:02 AM EDT [facility] Est Glomerular [...] CHEMISTRY ORDERABLES [facility] [place] [address] * (ABNORMAL) CBC (with Diff) (06/03/2024 2:13 AM EDT) White Blood Cell 11.16(H) 4.00 - 9.50 x10(3)/mc L 06/03/2024 2:37 AM EDT [facility] Red Blood Cell 5.09 4.58 - 5.54 x10(6)/mc L 06/03/2024 2:37 AM [facility] Hemoglobin 15.0 13.7 - 16.5 g/dL 06/03/2024 2:37 AM [facility] Hematocrit 47.4 40.5 - 48.5 % 06/03/2024 2:37 AM [facility] Mean Cell Volume 93.1 82.9 - 93.1 fL 06/03/2024 2:37 AM [facility] Mean Cell Hemoglobin 29.5 27.5 - 32.1 pg 06/03/2024 2:37 AM [facility] Mean Cell Hemoglobin Concentration 31.6(L) 32.0 - 35.7 g/dL 06/03/2024 2:37 AM [facility] Platelet 217 145 - 357 x10(3)/mc L 06/03/2024 2:37 AM [facility] Mean Platelet Volume 9.5 7.6 - 12.9 fL 06/03/2024 2:37 AM [facility] RDW Standard Deviation 49.0(H) 36.0 [...] 3.20 x10(3)/mc L 06/03/2024 2:37 AM EDT [facility] Monocyte % 8.1 % 06/03/2024 2:37 AM EDT [facility] Monocyte Absolute 0.90 0.30 - 0.90 x10(3)/mc L 06/03/2024 2:37 AM EDT [facility] Eos % 2.4 % 06/03/2024 2:37 AM EDT [facility] Eos Absolute 0.27 0.00 - [...] ORDERABLE S [facility] [place] [address] * Lipid Panel (Reflex Direct LDL) (06/03/2024 2:13 AM EDT) Cholesterol, Total 76 mg/dL 06/03/2024 3:02 AM EDT [facility] [facility] Comment: Desirable: < 200 mg/dL Borderline High: 200 - 239 mg/dL High: > or = 240 mg/dL Triglyceride 75 mg/dL 06/03/2024 3:02 AM T [facility] Comment: Normal: <150 mg/dL Borderline High: 150-199 mg/dL High: 200-499 mg/dL Very High: > or =500 mg/dL HDL Cholesterol 39 mg/dL 3:02 AM T [facility] Comment:Males: High Risk: <4 0 [...] 2:13 AM EDT 06/03/2024 2:32 AM EDT [facility] LABORATORY - 06/03/2024 3:02 AM EDT It [...] ACC/AHA Guidelines (most recently Bruce hermosillo al. [facility] 05/07/22): * [...] artery disease) Shahnaz Scanlon MD CHEMISTRY ORDERABLES [facility] [place] [address] * (ABNORMAL) APTT (06/03/2024 2:13 AM EDT) [...] ORDERABLE S [facility] [place] [address] * Prothrombin Time (06/03/2024 2:13 AM EDT) [...] ORDERABLE S [facility] [place] [address] * Hepatic Function Panel (06/03/2024 2:13 AM [...] Scanlon MD CHEMISTRY ORDERABLES Performing Organization Address City/[facility]/ZIP Co de Phone Number [facility] [place] [address] * (ABNORMAL) pro-Brain Natriuretic Peptide (06/03/2024 2:13 AM EDT) NT-proBNP 1,628(H) <=124 pg/mL 06/03/2024 4:15 AM EDT [facility] Blood VENOUS BLOOD SPECIMEN / Unknown IP Care Team Draw / Unknown 06/03/2024 2:13 AM EDT 06/03/2024 2:32 AM EDT Shahnaz Scanlon MD CHEMISTRY ORDERABLES [facility] [place] [address] * Phosphorus (06/03/2024 2:13 AM EDT) Phosphorus 4.4 2.5 - 4.5 mg/dL 06/03/2024 3:02 AM EDT [facility] Blood VENOUS BLOOD SPECIMEN / Unknown IP Care Team Draw / Unknown 06/03/2024 2:13 AM EDT 06/03/2024 2:32 AM EDT Shahnaz Scanlon MD CHEMISTRY ORDERABLES Performing Organization Address [facility] Co de Phone Number [facility] [place] [address] * EKG 12 Lead (06/03/2024 1:45 AM EDT) Ventricular rate 63 BPM MUSE SYSTEM Atrial Rate 63 BPM MUSE SYSTEM P-R Interval 168 ms MUSE SYSTEM QRS Duration 96 ms MUSE SYSTEM Q-T Interval 400 ms MUSE SYSTEM QTC Calculated (Bezet) 409 ms MUSE SYSTEM Calculated P [place] 65 degrees MUSE SYSTEM Calculated R [place] 70 degrees MUSE SYSTEM Calculated T [place] -86 degrees MUSE SYSTEM INTERPRETATION Atrial-sensed ventricular-paced rhythm Abnormal ECG No previous ECGs available I personally reviewed the tracing and edited the fellows interpretation Confirmed by fellow Sunni Agudelo ([id number]) on 06/04/2024 3:55:40 PM Confirmed by MD Cantrell Jonathan C. ([id number]) on 06/05/2024 11:46:48 AM MUSE SYSTEM 06/03/2024 1:45 AM EDT 06/05/2024 11:46 AM EDT Shahnaz Scanlon MD ECG ORDERABLES Performing Organization Address [facility] Co de Phone Number MUSE SYSTEM * CARDIAC CATHETERIZATION (06/03/2024 12:42 AM EDT) Anatomical Region Laterality Modality Other Narrative 06/04/2024 2:22 PM EDT ?[facility] ? Cardiac Catheterization/Intervention Report ? Patient Name: George Mehta L. ? Procedure Date: 06/02/2024 ? A #: [id number] ? Primary Physician: Nuha Shen I ? Case #: [id number] ? File Name: [id number] ? Catheterization Order Number: [id number] ? [facility] ? Final Report [place], [place] ? Patient Name: ? George L. Tyson ? ID#: ?[id number] ? : ?1955 ? Procedure Date: ? June 02, 2024 ? Case #: ? [id number] ? Room: ? 5 ? Case Physician: [...] procedure was Emergent. The indication for ?the greenhouse laborer visit is ACS less than or [...] ?3.5 guiding catheter and a 3.5 [place] 20 Mhz using Manual ?pullback. ??Imaging was [...] 3.5 guiding catheter and a 3.5 Fr [place] 20 Mhz using ?Manual pullback. ??Imaging was [...] Procedure Note Nuha Shen MD - 07/20/2024 [facility] Cardiac Catheterization/Intervention Report Patient Name: George Mehta Procedure Date: 06/02/2024 A #: [id number] Primary Physician: Nuha Shen I Case #: [id number] File Name: [id number] Catheterization Order Number: [id number] [facility] FinalReport [place], [place] Patient Name: George Mehta ID#:[id number] :1955 Procedure Date: June 02, 2024 Case [...] was designated as ASA Class IV. The [facility] clinicalfrailty scale is 5: Mildly Frail. Diagnostic Tests: Electrocardiography: EKG was assessed by ECG. EKG was Abnormal. EKG showed STDeviation >= 0.5 mm. Medications Prior to Procedure: Sacubitril and Valsartan, Aspirin, Beta Erik, Statin and Thrombolytic (any). Indications for Diagnostic Cath: The priority of the diagnostic procedure was Emergent. Theindication for the greenhouse laborer visit is ACS less than or [...] units of heparin were administered. A total [id number] of Omnipaque were opened, 84cc of Omnipaque were administered vdv37ib of Omnipaque were wasted. Radiation: Fluoro time [...] 3.5 guiding catheter and a 3.5 [place] 20 Mhz usingManual pullback. Imaging was successful. [...] 3.5 guiding catheter and a 3.5 Fr [place] 20 Mhzusing Manual pullback. Imaging was successful. Indication: IVUS performed for pre intervention planning. Findings Pre-Intervention: scattered plaque, calcification and [id number] degrees calcification. Findings Post-Intervention: Stent not imaged [...] coronary. Nuha Shen M.D. Electronically Signed by: uNha Shen M.D. Report Finalized: 06/04/2024 14:16 Report Last Ammended: 07/20/2024 15:36 Authorizing Provider Result Saranya Rojo MD CARDIAC CATH ORDERA BLES * POC, GLUCOSE (06/02/2024 11:31 PM EDT) [facility] Signature Glucometer, POC 156 65 - 199 mg/dL 06/02/2024 11:31 PM EDT [facility] Comment:Supplemental ranges: <140 mg/dL before meals <180 mg/dL all other times of the day. Blood CAPILLARY BLOOD / Unknown 06/02/2024 11:31 PM EDT 06/02/2024 11:31 PM EDT Narrative Authorizing Provider Result Saranya Rojo MD POINT OF CARE TEST ORDERABLES Performing Organization Address City/State/[facility] Co de Phone Number [facility] [place] [address] documented in this encounter Visit Diagnoses Diagnosis STEMI (ST elevation myocardial infarction)- Primary Acute myocardial infarction, unspecified site, episode of care unspecified ST elevation myocardial infarction (STEMI), unspecified artery Coronary artery disease involving te-moak coronary artery of te-moak heart without angina pectoris 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 Scan the CHG vial in the spotflux Q-Care Oral Care Kit from floor stock. Ventilator-associated pneumonia prophylaxis For use in ICU/Critical care locations ONLY. Obtain kit from Floor Stock location. Scan CHG vial in the spotflux Q-Care Oral Care Kit, Routine Given 06/14/2024 [...] restart at 50% of previous rate. Call dye house wheel operator if goal not achieved at maximum rate. [...] in sodium chloride 0.9% infusion (for [facility], [facility], OR use only) 3-5 mL/hr, Intravenous, CONTINUOUS, [...] DAILY, First dose (after last modification) on 06/07/24 at 0900, Until Discontinued, Routine Given 06/07/2024 [...] MEALS, First dose (after last modification) on [facility] 06/19/24 at 0800, Until Discontinued, MEAL ASSOCIATED [...] MEALS, First dose (after last modification) on [facility] 06/17/24 at 0800, Until Discontinued, MEAL ASSOCIATED [...] MEALS, First dose (after last modification) on [facility] 06/17/24 at 1700, Until Discontinued, MEAL ASSOCIATED [...] TIMES DAILY WITH MEALS, First dose on [place] 06/06/24 at 1200, Until Discontinued, MEAL ASSOCIATED Give 1 unit for every 10 grams carbohydrate. Hold if not eating or if BG less than 70 mg/dL. , Routine Given 06/06/2024 12:25 PM EST 4 Units insulin lispro (HumaLOG;Admelog) (100 unit/mL) subcutaneous injection vial 1-10 Units 1-10 Units, Subcutaneous, EVERY 4 HOURS SCHEDULED, First dose (after last modification) on [facility] 06/19/24 at 0800, Until Discontinued, CORRECTION [...] 2100, Last dose on Fri06/23/24 at 0900, Server Engineer recommended duration is 3 days., Routine Given [...] Starting on [place] 06/03/24 at 0847, Until Fri06/03/24 at 0847, Other, [...] 8:02 PM EST 2 tablets sodium chloride ([place]umet) 0.65 % nasal spray 1 spray 1 [...] 2.0 L/min/M2. Maximum volume 2 L. Call dye house wheel operator for additional fluid orders: pager #[phone]. Rate/Dose Verify 06/15/2024 10:00 AM EST 1 mL/hr 1 mL/hr Rate/Dose Verify 06/15/2024 8:00 AM EST 1 mL/hr 1 mL/hr Rate/Dose Verify 06/15/2024 6:00 AM EST 1 mL/hr 1 mL/hr sodium chloride 0.9% infusion 10-30 mL/hr, Intravenous, DAILY PRN, Starting on Fri06/14/24 at 1436, Until Fri06/15/24 at 1406, Side port TKO rate, per CC nursing protocol. Rate/Dose Verify 06/15/2024 10:00 AM [...] Lane RN)1753 (Given - Provider: Mary Lou Lane, JAMIE) [...] (Patch Applied - Provider: Christina Myers RN) 0819 (Patch Removed - Provider: [...] 2100, Last dose on Fri06/23/24 at 0900, Server Engineer recommended duration is 3 days., Routine 2043 (Given - Provider: Christina Myers RN) 899 (Not Given - Provider: Shazia Mcdonald RN [...] Comment: 117/75) 08 (Given - Provider: Michelle Orozco, JAMIE)2041 (Given [...] Intravenous, EVERY 15 MIN PRN, Starting on 06/15/24 [...] oral route first line., Routine sodium chloride ([place]) 0.65 % nasal spray 1 spray 1 [...] Routine, EVERY 4 HOURS, First occurrence on Sat 24 at 0800, Until Specified, Consider choosing EVERY [...] PRN, Starting on Fri06/16/24 at 1814, Until 06/21/24 at 1534, Pain, severe pain (7-10), If multiple routes of administration ordered, oral route first line., Routine documented in this encounter Care Teams Technical Writing Lead/Mgr Relationship Specialty Start Date End Date Mauro Berumen MD [address] [place] [address] PCP - General Family Medicine 06/02/24 documented as of this encounter
--- OUTSIDE RECORDS SUMMARY | 2024-08-18 10:23 | XMS_ITS | Encounter Summary ---
Author Organization [facility] Address [facility] [place] [address] Care Team Providers Care Gasoline Service Attendant Name Role Phone Mauro Berumen MD Primary Care Provider [phone] Encounter Details Date Type Department Care Team (Latest Contact Info) Description 06/14/2024 Unscheduled Encounter Cardiology at [address] [place] [phone] Ross Corbin PA [facility] [place] [address] Cardiac resynchronization therapy defibrillator (SHAKE TABLE OPERATOR-D) in place [Z95.810] Social History Tobacco Use Types Packs/Day Years Used Date Smoking Tobacco: Every Day Cigarettes Smokeless Tobacco: Never [facility] Utilities Answer Date Recorded In [...] AM EST Cardiac Device Interrogation Arturo Mehta [id number] 06/14/2024 History: Arturo Mehta is a 69 year old male with a PMH significant for HTN, HLD, DM2, current TUD (abstinent since admission), ASCVD with multiple prior AR and PCIs, ICM/HFrEF LVEF 30% (all territories viable on cMRI) who is undergoing a CABG procedure and EP was asked to reprogram his SHAKE TABLE OPERATOR-D device for the procedure. Vitals: Last Set of Vitals and range of vitals over past 24 hours: Range last 24 hrs Temperature Temp: [36 ??C (96.8 ??F)-37 ??C (98.6 ??F)] Heart Rate Heart Rate: [57-72] Blood Pressure BP: (99-138)/(66-86) Respiratory Rate Resp: [13-24] SpO2 SpO2: [90 %-98 %] Device Interrogation: Data Generator: MedBetTech Gaming Amplia MRI Quad SHAKE TABLE OPERATOR-D [id number] / [id number] - Left-sided implant; 06/16/19 RA Lead: Medtronic [id number] CapSureFix Novus [id number]; 06/16/19 RV Lead: Medtronic [id number] / [id number]; 06/16/19 LV Lead: Medtronic [id number] Attain Performa MRI / [id number]; 06/16/19 Diagnostics Pacing Mode: DDD @ 50/130 [...] scheduled. Ross Corbin PA-C, PhD 06/14/2024 Pager: [phone] documented in this encounter Plan of Treatment Upcoming Encounters Date Type Department Care Team (Late st Contact Info) Description 09/29/2024 2:00 PM EST Office Visit Cardiology at [address] [phone] Moi Falcon MD [facility] [place] [address] documented as of this encounter Visit Diagnoses Diagnosis Cardiac resynchronization therapy defibrillator (SHAKE TABLE OPERATOR-D) in place [Z95.810] documented in this encounter Care Teams Gasoline Service Attendant Relationship Specialty Start Date End Date Mauro Berumen MD [address] [place] [address] PCP - General Family Medicine 06/02/24 documented as of this encounter
--- OUTSIDE RECORDS SUMMARY | 2024-08-18 10:23 | XMS_ITS | Encounter Summary ---
Author Organization [facility] Address [facility] [place] [address] Care Team Providers Care Wheel Roller Name Role Phone Mauro Berumen MD Primary Care Provider [phone] Encounter Details Date Type Department Care Team (Latest Contact Info) Description 06/15/2024 Unscheduled Encounter Cardiology at [address] [place] [phone] Ross Corbin PA [facility] [place] [address] Cardiac resynchronization therapy defibrillator (DIETARY SUPERVISOR-D) in place [Z95.810] Social History Tobacco Use Types Packs/Day Years Used Date Smoking Tobacco: Every Day Cigarettes Smokeless Tobacco: Never [facility] Utilities Answer Date Recorded In the [...] PM EST Cardiac Device Interrogation Arturo Mehta [id number] 06/15/2024 History: Arturo Mehta is a 69 year old male with a PMH significant for HTN, HLD, DM2, current TUD (abstinent since admission), ASCVD with multiple prior [place] and PCIs, 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 Today, EP was asked to reprogram his DIETARY SUPERVISOR-D device for the procedure. Vitals: Last Set of Vitals and range of vitals over past 24 hours: Range last 24 hrs Temperature Temp: [34.9 ??C (94.8 ??F)-37.6 ??C (99.7 ??F)] Heart Rate Heart Rate: [80-107] Blood Pressure BP: (115)/(65) Respiratory Rate Resp: [11-24] SpO2 SpO2: [92 %-100 %] Device Interrogation: Data Generator: Medtronic Amplia MRI Quad DIETARY SUPERVISOR-D [id number] / [id number] - Left-sided implant; 06/16/19 RA Lead: Medtronic [id number] CapSureFix Novus [id number]; 06/16/19 RV Lead: Medtronic 6935M / [id number]; 06/16/19 LV Lead: Medtronic 4298 Attain Performa MRI / [id number]; 06/16/19 Alerts VF Detection OFF, 3+ VF or 3+ FVT Rx Off. Diagnostics Pacing Mode: DDD @ 80/130 bpm Presenting EGMs: BV Underlying Rhythm: Sinus tachycardia ~100 bpm Atrial Pacin.7% Ventricular Pacin.6% DIETARY SUPERVISOR Pacin% Battery and Leads Voltage: 2.93 V [...] - Contact the device clinic at pager [phone] for any further programming adjustments. Ross Corbin PA-C, PhD 06/15/2024 Pager: [phone] documented in this encounter Plan of Treatment Upcoming Encounters Date Type Department Care Team (Late st Contact Info) Description 09/29/2024 2:00 PM EST Office Visit Cardiology at [address] [phone] Moi Falcon MD [facility] [place] [address] documented as of this encounter Visit Diagnoses Diagnosis Cardiac resynchronization therapy defibrillator (DIETARY SUPERVISOR-D) in place [Z95.810] documented in this encounter Care Teams Wheel Roller Relationship Specialty Start Date End Date Mauro Berumen MD [address] [place] [address] PCP - General Family Medicine 06/02/24 documented as of this encounter
--- OUTSIDE RECORDS SUMMARY | 2024-08-18 10:24 | XMS_ITS | Encounter Summary ---
Author Organization [facility] [place] [address] Care Team Providers Care Forestry Crew Chief Name Role Phone Mauro Berumen MD Primary Care Provider [phone] Reason for Visit * Auth/Cert Specialty Diagnoses / Procedures Referred By Carroll t Referred To Contact Diagnoses STEMI (ST elevation myocardial infarction) STEMI Procedures CARDIAC CATHETERIZATION EMERGENCY Delroy Monterroso MD [facility] [place] [address] [facility] Referral ID Status Reason Start Date Expiration Date Visits Re quested Visits Authorized [id number] 1 1 Encounter Details Date Type Department Care Team (Late st Contact Info) Description 06/14/2024 7:30 AM EST - 06/14/2024 2:08 PM EST Surgery [place] [address] Bobby Loja MD [facility] [place] [address] @CABG, USING ARTERIAL GRAFT;SINGLE ARTERIAL GRAFT (WRVU 33.75) Social History Tobacco Use Types Packs/Day Years Used Date Smoking Tobacco: Every Day Cigarettes Smokeless Tobacco: Never Tobacco Cessation:Ready to Q uit: No; Counseling Given: Yes [facility] Utilities Answer Date Recorded In [...] in the past 12 m [facility], were you homeless or living in a mcfp (including now)? No 06/03/2024 DH IPV Inpatient [...] Patient Age: 69 y.o. Birthdate: 1955 Language: Korean Race: Choose not to Disclose Ethnicity: Not nor Admit Date: 06/02/2024 Discharge Date: 06/21/2024 Attending Physician: Bobby Loja MD Follow-up Recommendations for Providers: Please continue routine management of cardiovascular risk factors including blood pressure, lipids,glucose, etc. Please note any changes to medications. Patient to follow up with PCP, Mauro Berumen MD, in 1-2 weeks. Patient to follow up with Saw Setter, Kristen Cardenas in 2-3 weeks. Patient to follow up with Cardiac Surgeon, Dr. Bobby Loja, in 4 wks. Inpatient Provider Contact Information: [facility] Section of Cardiac Surgery [facility] [place] [address] FAX [phone] Discharge Diagnoses (Hospital Problems) Primary Diagnoses: STEMI [...] performed by Bobby Loja MD [facility] MAIN OR PRO CABG, ARTERY-VEIN, TWO N/A 06/14/2024 @CABG, TWO VENOUS GRAFTS & ARTERIAL GRAFT (WRVU 7.93) performed by Bobby Loja MD at [facility] OR PRO ENDOSCOPY W/VIDEO-ASST VEIN HARVEST, CABG N/A 06/14/2024 ENDOSCOPIC HARVEST VEIN(S) FOR CABG (WRVU 0.31) performed by Bobby Loja MD at [facility] MAIN OR PRO EXC MEDIASTINAL TUMOR N/A 06/14/2024 @EXCISION OF MEDIASTINAL TUMOR (WRVU 19.55) performed by Bobby Loja MD at [facility] MAIN OR PRO INSERT INTRA-AORTIC BALLOON ASST DEVICE PERCUTANEOUS N/A 06/13/2024 @INSERTION OF IABP,PERCUTANEOUS (WRVU 4.84) performed by Nuha Shen MD at [facility] CATH LABS PRO UNLISTED CARDIAC SURG PROCEDURE N/A 06/14/2024 EXPLORATION AND OVERSEW ATRIAL APPENDAGE (WRVU 5.94) performed by Bobby Loja MD at [facility] [place] Prior To Admission Medications Medications [...] y.o. male with a PMHx of previous MD s/p PCI x3, ICM/HFrEF (LVEF 30%) s/p ICD, DMII, HTN, HLD, remote melanoma, and smoker who presented to [facility] last night via EMS after developing acute, severe chest pain while watching TV. Patient was ruled in for STEMI, given TNK, ASA, plavix, heparin gtt, and sent to [facility] for coronary angiography. LHC demonstrated severely calcified left coronary system with notable LCx 75/80% lesions and HOISTMAN OM1 with ISR with collateral retrograde filling, [...] Hospital Course: George Mehta was admitted to [facility] on 06/02/2024 via the CardiologyService with an anterior STEMI after receiving lytics at OSH. He was brought to the labor economics professor which showed severely calcified left coronary system with notable LCx 75/80% lesions and HOISTMAN OM1 with ISR with collateral retrograde filling, [...] 2 tablespoons of dried fruit. Milk and me-nonrk-lpxgx yogurt have 15 grams of carbs in a serving. A serving is 1 cup of milk or 3/4 cup (6 oz) of wm-aqzem-bgbyb yogurt. Starchy vegetables have 15 grams of carbs in a serving. A serving is ?? cup of mashed potatoes or sweet potato; 1 cup winter squash; ?? of a small baked potato; ?? cup of cooked beans; or ?? cup cooked corn or green peas. Learn how much carbs to eat each day and at each meal. A dietitian or certified public accountant can teach you how to keep track [...] Bobby Loja and/or the Cardiac Surgery Physician Fire Claims Adjuster Team may be reached at . Weight: [...] Dr. Bobby Loja. You may use a [place] Track or treadmill but avoid any pulling [...] friends, go to a movie, go to judaism, etc. Heavy activities: No hunting, skiing, jogging, [...] should resume a low fat, low cholesterol, [place] Heart Association Diet/Diabetic diet. Driving: No driving [...] while being managed by your PCP and/or Saw Setter. For future medication refills, please refer to your PCP and/or Saw Setter after your discharge from our service. Thank you REMOVE CHEST TUBE SUTURES ON OR AFTER 06/24/2024 Home oxygen therapy: N/A Follow up appointments: You should follow up with your PCP, Mauro Berumen MD, in 1-2 weeks. You should follow up with your Saw Setter, Dr CARDENAS. You have an appointment with your Cardiac Surgeon, Dr. Bobby Loja, in 4 wks. Cardiac Rehabilitation: George Mehta was seen today regarding participation in the outpatient Phase 2 Cardiac Rehabilitation at [facility]. The patient agrees to a referral to this program. The referral will be sent at discharge and the patient should be contacted by the program within 1-2 weeks from discharge. Future Appointments and Orders Future Orders Complete By Expires Referral to Cardiac Rehab [AQU258 Custom] As directed Process Instructions: If no progress note charted, please enter Clinical details in comments. Scheduling Instructions: Questions: My question or request is: s/p CABG- cardiac rehab at [facility] Referral to Home Health [REF34 Custom] As directed Process Instructions: If no progress note charted, please enter Clinical details in comments. Scheduling Instructions: Comments: Please evaluate George Mehta for admission to Home Health. [address] [facility] [address] (home) Date of : 1955 Inpatient DOCUMENTATION FOR VNA SERVICES (INCLUDING THOSE PATIENTS WITH MEDICARE COVERAGE REQUIRINGHOME VNA SERVICES AND/OR HOSPICE SERVICES) PATIENT'S LOCATION: George Mehta [address] [facility] [address] (home) Telephone Information: Supervisor Fiber Locking's Name: self In discussion with the attending physician, it is certified that this patient is under their care and that they, or a Nurse Practitioner, or Physician Fire Claims Adjuster who is working directly with them, hada [...] for services as follows: HOME HEALTH AGENCY: [facility] [address] [place] [id number] RN orders: Cardiopulmonary assessment, incisional assessment, assess [...] issues please call the Cardiology Office at [phone] FOR MEDICARE ONLY: (please delete this section [...] care: As above. Signed: KEILA HANLEY APRN [facility] Section of Cardiac Surgery [facility] [place] [address] FAX [phone] Date: 06/21/2024 CC: MD Antonino Tinajero Joshua R, PA [address] [place] [address] [place] [address] documented in this encounter Discharge Instructions * [...] 2 tablespoons of dried fruit. Milk and rq-ljypj-tmiwk yogurt have 15 grams of carbs in a serving. A serving is 1 cup of milk or 3/4 cup (6 oz) of hq-geiup-qctqc yogurt. Starchy vegetables have 15 grams of carbs in a serving. A serving is ?? cup of mashed potatoes or sweet potato; 1 cup winter squash; ?? of a small baked potato; ?? cup of cooked beans; or ?? cup cooked corn or green peas. Learn how much carbs to eat each day and at each meal. A dietitian or certified public accountant can teach you how to keep track [...] your chest incision. Your surgeon, Dr. oBbby Loja and/or the Cardiac Surgery Physician Fire Claims Adjuster Team may be reached at . Weight: [...] Dr. Bobby Loja. You may use a [place] Track or treadmill but avoid any pulling [...] friends, go to a movie, go to judaism, etc. Heavy activities: No hunting, skiing, jogging, [...] should resume a low fat, low cholesterol, [place] Heart Association Diet/Diabetic diet. Driving: No driving [...] while being managed by your PCP and/or Saw Setter. For future medication refills, please refer to your PCP and/or Saw Setter after your discharge from our service. Thank you REMOVE CHEST TUBE SUTURES ON OR AFTER 06/24/2024 Home oxygen therapy: N/A Follow up appointments: You should follow up with your PCP, Mauro Berumen MD, in 1-2 weeks. You should follow up with your Saw Setter, Dr CARDENAS. You have an appointment with your Cardiac Surgeon, Dr. Bobby Loja, in 4 wks. Cardiac Rehabilitation: George Mehta was seen today regarding participation in the outpatient Phase 2 Cardiac Rehabilitation at [facility]. The patient agrees to a referral to [...] RN - 06/21/2024 8:32 AM EST During [facility] Purposeful Rounding, an assessment of your patient's venous access [facility] Service. The following tasks [...] RN - 06/21/2024 8:31 AM EST During [facility] Purposeful Rounding, an assessment of [...] MARIALUISA clipping. PMH of chronic HFrEF s/p LINING PARTS SEWER/ICD, IDDM2, HTN, HLD, remote melanoma, active smoker. [...] 2 tablespoons of dried fruit. Milk and kx-sahmw-necoy yogurt have 15 grams of carbs in a serving. A serving is 1 cup of milk or 3/4 cup (6 oz) of wz-oehmv-bkzfl yogurt. Starchy vegetables have 15 grams of carbs in a serving. A serving is ?? cup of mashed potatoes or sweet potato; 1 cup winter squash; ?? of a small baked potato; ?? cup of cooked beans; or ?? cup cooked corn or green peas. Learn how much carbs to eat each day and at each meal. A dietitian or certified public accountant can teach you how to keep track [...] cheese, and peanut butter. Alejandra Baumann APRN [facility] Endocrinology Diabetes Management Pager [phone] Weekends please page [phone] * Eric Packer PA - 06/20/2024 7:44 AM EST Cardiac Surgery Progress Note George Mehta is a 69 y.o. male with a history of CAD s/p multiple PCI who presented with an anterior STEMI and was given lytics. Cath showed MV CAD without culprit vessel. He is now 6 Days Post-OpCABGx3 and MARIALUISA clipping. PMH of chronic HFrEF s/p LINING PARTS SEWER/ICD, IDDM2, HTN, HLD, remote melanoma, active smoker. 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 06/20/2024 Between the hours of 1800 - 0600 and on the weekends please page [phone]. * Alejandra Baumann APRN - 06/20/2024 7:21 AM EST Follow Up Diabetes Consult Patient Interview Blood glucose values and insulin use reviewed. manager hospice BG to 59 despite decrease in glargine [...] MARIALUISA clipping. PMH of chronic HFrEF s/p LINING PARTS SEWER/ICD, IDDM2, HTN, HLD, remote melanoma, active smoker. manager hospice BG to 59 despite decrease in glargine [...] based on ISF 20 Alejandra Baumann APRN [facility] Endocrinology Diabetes Management Pager [phone] Weekends please page [phone] Insulin Discharge Instructions Preliminary Diabetes Discharge Instructions [...] Your Long-acting insulin is called Tresiba Take 35 units of long acting insulin [...] juice or regular (not diet) soda 6 [place] small box of raisins 4 glucose tablets [...] 2 tablespoons of dried fruit. Milk and yx-aeftv-uhzvz yogurt have 15 grams of carbs in a serving. A serving is 1 cup of milk or 3/4 cup (6 oz) of qj-uigmp-hivcd yogurt. Starchy vegetables have 15 grams of carbs in a serving. A serving is ?? cup of mashed potatoes or sweet potato; 1 cup winter squash; ?? of a small baked potato; ?? cup of cooked beans; or ?? cup cooked corn or green peas. Learn how much carbs to eat each day and at each meal. A dietitian or certified public accountant can teach you how to keep track [...] MARIALUISA clipping. PMH of chronic HFrEF s/p LINING PARTS SEWER/ICD, IDDM2, HTN, HLD, remote melanoma, active smoker. 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 Jeffy Hood MD 06/19/2024 Between the hours of 1800 - 0600 and on the weekends please page [phone]. * Alejandra Baumann, SPECIMEN COLLECTOR - 06/19/2024 7:09 AM EST Follow Up Diabetes Consult Patient Interview Blood glucose values and insulin use reviewed. Jardiance added back yesterday, quality assurance coordinator low BGto 51. Glargine reduced to [...] 1617 06/18/24 1209 06/18/24 0749 06/18/24 0350 11/14/24 2310 POCGLU 125 67 51* 82 73 167 140 144 180 125 99 92 ASSESSMENT George Mehta is a 69 y.o. male with a history of CAD s/p multiple PCI who presented with an anterior STEMI and was given lytics. Cath showed MV CAD without culprit vessel. He is now 1 Day Post-Op CABGx3 and MARIALUISA clipping. PMH of chronic HFrEF s/p LINING PARTS SEWER/ICD, IDDM2, HTN, HLD, remote melanoma, active smoker. Jardiance added back yesterday. manager hospice low BG to 51. Glargine reduced to [...] 2 tablespoons of dried fruit. Milk and jg-miwpl-tnoug yogurt have 15 grams of carbs in a serving. A serving is 1 cup of milk or 3/4 cup (6 oz) of bx-jfcvb-gjtij yogurt. Starchy vegetables have 15 grams of carbs in a serving. A serving is ?? cup of mashed potatoes or sweet potato; 1 cup winter squash; ?? of a small baked potato; ?? cup of cooked beans; or ?? cup cooked corn or green peas. Learn how much carbs to eat each day and at each meal. A dietitian or certified public accountant can teach you how to keep track [...] cheese, and peanut butter. Alejandra Baumann APRN [facility] Endocrinology Diabetes Management Pager [phone] Weekends please page [phone] * Hilda Resendez PTA - 06/18/2024 9:19 AM EST Physical Therapy Note 2 Patient profile: George Mehta is a 69 y.o. male with a history of CAD s/p multiple PCI who presented with an anterior STEMI and was given lytics. Cath showed MV CAD without culprit vessel. He is now 1 Day Post-Op CABGx3 and MARIALUISA clipping. PMH of chronic HFrEF s/p LINING PARTS SEWER/ICD, IDDM2, HTN, HLD, remote melanoma, active smoker. Interval History: Per last cardiac surgery note on 06/18/2024 Cr improved 1.4 on lasix 40 iv bid -1.5L, made 2.5L urine Coreg, entresto restarted Floor status Social History: Pt lives with his in a 1 level apartment with no steps to enter. 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 He sleeps in a recliner at baseline. Precautions/Special Considerations: Sternal precautions, PIV, at risk to fall, PPM Mobility and Positioning Recommendations: Pt to utilize no AD, supervision for ambulation and transfers w/ staff home therapy rn as able. Please encourage up to chair [...] least restrictive device Time IN / OUT: 8752-1804 Total Time: 11 minutes; TEF 1 Hilda Resendez PTA Pager: [phone] Physical Therapy Inpatient Rehabilitation Department * Keila [...] MARIALUISA clipping. PMH of chronic HFrEF s/p LINING PARTS SEWER/ICD, IDDM2, HTN, HLD, remote melanoma, active smoker. 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 Restarting jardiance #Active smoker Duoneb prn Dispo: CVCC, Full code, tx to floor Discussed with attending surgeon on rounds this morning. KEILA HANLEY, JOSÉ ANTONIO 06/18/2024 Between the hours of 1800 - 0600 and on the weekends please page [phone]. * Alejandra Baumann APRN - 06/17/2024 3:29 [...] MARIALUISA clipping. PMH of chronic HFrEF s/p LINING PARTS SEWER/ICD, IDDM2, HTN, HLD, remote melanoma, active smoker. [...] based on ISF 20 Alejandra Baumann APRN [facility] Endocrinology Diabetes Management Pager [phone] Weekends please page [phone] 35 minutes were spent over the course [...] MARIALUISA clipping. PMH of chronic HFrEF s/p LINING PARTS SEWER/ICD, IDDM2, HTN, HLD, remote melanoma, active smoker. [...] 0600 and on the weekends please page [phone]. * Raymond Carlton MD - 06/16/2024 1:11 PM EST CARDIAC CRITICAL CARE ATTENDING STAFF PROGRESS NOTE Patient seen and examined. George Mehta is a 69 y.o. male with: Active Hospital Problems Diagnosis STEMI (ST elevation myocardial infarction) Cardiac resynchronization therapy defibrillator (LINING PARTS SEWER-D) - Medtronic Amplia Cardiomyopathy, ischemic Acute on chronic heart failure with reduced ejection fraction (HFrEF, <= 40%) Coronary artery disease involving [place] coronary artery of [place] heart without angina pectoris Type 2 diabetes [...] encouragement provided Patient screened for f/u and film writer met pt at bedside. Pt states [...] unless consulted in the interim. RICHA Simmons Cold Mill Inspector * Octaviano Horvath PA - 06/16/2024 8:07 AM EST Cardiac Surgery Progress Note George Mehta is a 69 y.o. male with a history of CAD s/p multiple PCI who presented with an anterior STEMI and was given lytics. Cath showed MV CAD without culprit vessel. He is now 2 Days Post-OpCABGx3 and MARIALUISA clipping. PMH of chronic HFrEF s/p LINING PARTS SEWER/ICD, IDDM2, HTN, HLD, remote melanoma, active smoker. [...] 0600 and on the weekends please page [phone]. * Jono Fernandez, PT - 06/15/2024 4:09 PM EST Physical Therapy Evaluation Patient profile: George Mehta is a 69 y.o. male with a history of CAD s/p multiple PCI who presented with an anterior STEMI and was given lytics. Cath showed MV CAD without culprit vessel. He is now 1 Day Post-Op CABGx3 and MARIALUISA clipping. PMH of chronic HFrEF s/p LINING PARTS SEWER/ICD, IDDM2, HTN, HLD, remote melanoma, active smoker. 24h Events: From OR on Dobutamine IABP removed Bedrest ended ~2100, sedation weaned Extubated ~0200 Dobutamine weaned to 1 this morning, CI 2.6, shut off and repeat CI 2.4 Social History: Pt lives with his in a 1 level apartment with no steps to enter. 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 He sleeps [...] outlined inthis evaluation. JONO FERNANDEZ, PT Pager: [phone] Physical Therapy Inpatient Rehabilitation Department Time IN / OUT: 2492-6318 Total Time: 33 (eval) minutes * Alejandra Baumann APRN - 06/15/2024 11:39 AM EST Follow Up Diabetes Consult Patient Interview Blood glucose values and insulin use reviewed. Pt remains on an insulin drip today following [id number] MARIALUISA clipping. George continues to complain of [...] MARIALUISA clipping. PMH of chronic HFrEF s/p LINING PARTS SEWER/ICD, IDDM2, HTN, HLD, remote melanoma, active smoker. [...] based on ISF 20 Alejandra Baumann APRN [facility] Endocrinology Diabetes Management Pager [phone] Weekends please page [phone] 50 minutes were spent over the course [...] elevation myocardial infarction) Cardiac resynchronization therapy defibrillator (LINING PARTS SEWER-D) - Medtronic Amplia Cardiomyopathy, ischemic Acute on chronic heart failure with reduced ejection fraction (HFrEF, <= 40%) Coronary artery disease involving [place] coronary artery of [place] heart without angina pectoris Type 2 diabetes [...] with h/o DM, CAD with prior PCI, LINING PARTS SEWER-D who presented with crushing chest pain, found [...] Last Ca, Mg, Phos Recent Labs 06/14/24 001 CALCIUM 9.5 MAGNESIUM 0.74 Last 3 Coags [...] MARIALUISA clipping. PMH of chronic HFrEF s/p LINING PARTS SEWER/ICD, IDDM2, HTN, HLD, remote melanoma, active smoker. [...] sternotomy dressing CDI, saphenectomy dressing CDi Tubes/Lines/Drains: [place], RIJ, A-line, Mediastinal marcos and bilateral pleural [...] 0600 and on the weekends please page [phone]. * Yoli Donaldson PARTY HOST/HOSTESS - 06/15/2024 5:35 AM EST AMV Protocol: [...] sounds. Pt weaned to 2L NC. Yoli Dnoaldson RCP * Loraine Lowe MD - 06/14/2024 6:12 PM EST Cardiac Critical Care Medicine Staff Progress Note 69 y.o. male with h/o DM, CAD with prior PCI, LINING PARTS SEWER-D who presented with crushing chest pain, found [...] 1.5 PTT 31 T/L/D Barr ETT CVL Melba CT Pacing wires ASSESSMENT, MANAGEMENT, and DECISION MAKIN y.o. male with h/o DM, CAD with prior PCI, LINING PARTS SEWER-D who presented with crushing chest pain, found [...] 0600 and on the weekends please page [phone]. * Chloé Cortez - 06/14/2024 9:36 AM [...] unless consulted in the interim. Chloé Cortez Alligator Shear Operator * Jim Benites MD - 06/13/2024 [...] - Mildly dilated left ventricle size with gjmftoct-wj-xqlxsapy decreased LV systolic function. LV ejection fraction [...] ACS/crushing chest pain, likely due to lateral MD, found to have surgical CAD with viability [...] (abstinent since admission), ASCVD with multiple prior MD and PCIs, ICM/HFrEF LVEF 30% (all territories [...] elevation myocardial infarction) Cardiac resynchronization therapy defibrillator (LINING PARTS SEWER-D) - Medtronic Amplia Cardiomyopathy, ischemic Acute on chronic heart failure with reduced ejection fraction (HFrEF, <= 40%) Coronary artery disease involving [place] coronary artery of [place] heart without angina pectoris Type 2 diabetes [...] PCP: Mauro Berumen MD PCP phone number: [phone] Date of Admission: 06/02/2024 ( Hospital Day 10 days ) Attending:Ethel Carrillo MD ID: 69 y.o. male with a h/o DM type 2, HTN, HLD, current smoker (2-3 cigarettes/day), HFrEF with anICD for low EF (~30%), and CAD with prior MD x3 with JENNA placed in [place], Melanoma, PAD, presented to [facility] with 1 hour of retrosternal CP (05/13) while watching TV, found to have STEMI. Active Problems: Active Hospital Problems Diagnosis STEMI (ST elevation myocardial infarction) Cardiac resynchronization therapy defibrillator (LINING PARTS SEWER-D) - Medtronic Amplia Cardiomyopathy, ischemic Acute on chronic heart failure with reduced ejection fraction (HFrEF, <= 40%) Coronary artery disease involving [place] coronary artery of [place] heart without angina pectoris Type 2 diabetes [...] 06/03/24 0400 Labs: Recent Labs 06/12/24 0303 06/11/243 06/10/24 0155 06/09/24 0212 06/08/24 0321 WBC 9.69* 9.91* 9.00 9.80* 9.92* HGB 15.2 15.3 14.9 15.5 15.1 HCT 46.6 47.5 46.4 47.4 46.7 PLATELET 194 184 191 205 203 MCV 92.3 92.6 92.2 91.5 91.7 Recent Labs 06/12/24 0303 06/11/243 06/10/24 0155 06/09/24 0825 06/09/24 0212 06/08/24 [...] in the last 7068 hours. Invalid input(s): [id number] Recent Labs 06/12/24 0425 06/11/24 2356 06/11/24 2025 06/11/24 1624 06/11/24 1108 06/11/24 0748 06/11/24 0357 06/11/24 0050 06/10/24 1922 06/10/24 1735 06/10/24 1125 06/10/24 0746 POCGLU 132 135 210* 81 233* 184 132 144 236* 123 216* 206* Heme No results for input(s): LDH, HAPTOGLOBIN, URICACID in the last 168 hours. ABG (Arterial Blood Gas) No results found for: PHART, PO2ART, TXI4IFV, ITW8MSB Microbiology: Microbiology Results (Last 30 days) No results found for the last 720 hours. Imaging: Results for orders placed or performed during the hospital encounter of 06/02/24 XR Chest One View (Exam End: 06/03/2024 2:41 AM) Result Value WORKSTATION ID [id number] Impression No radiographically evident acute cardiopulmonary process. Thank you for letting us participate in the care of this patient. If you are a health care provider and have any questions regarding this report, please contact the number below. For patients who have questions please contact the health property caretaker that requested your imaging first. Cardiac Morphology Function wwo Contrast (Exam End: 06/07/2024 1:10 PM) Result Value WORKSTATION ID [id number] Impression - Findings consistent with an ischemic [...] - Mildly dilated left ventricle size with pbaeimkd-mv-zulhocbj decreased LV systolic function. LV ejection fraction [...] who have questions please contact the health property caretaker that requested your imaging first. Chest wo Contrast (Generic) (Exam End: 06/03/2024 4:33 PM) Result Value WORKSTATION ID [id number] Impression Cardiomegaly. Biventricular ICD leads in place. Thank you for letting us participate in the care of this patient. If you are a health care provider and have any questions regarding this report, please contact the number below. For patients who have questions please contact the health property caretaker that requested your imaging first. Chest PA & Lateral (Generic) (Exam End: 06/07/2024 7:03 AM) Result Value WORKSTATION ID [id number] Impression Biventricular ICD leads intact and in [...] who have questions please contact the health property caretaker that requested your imaging first. : Limited echo performed by fellow director recreation to assess LV function. Left ventricle is [...] Infusions: heparin (porcine) infusion 1,400 Units/hr (06/12/24 7454) PRN Meds:.insulin lispro, glucose 40% oral geL [...] ischemic cardiomyopathy with HFrEF (~30% EF), prior MD with stents, DM type 2, HTN, HLD, active smoker, presented with anterior STEMI. Angiography revealed severe multivessel CAD with extensive calcification and YUE 3 flow in all vessels, without a clear culprit lesion. Currently pain-free after TNK, Plavix, ASA, and heparin, with mildly elevated LVEDP at 40 mmHg and mild volume overload. 06/12/24: Patient stable, asymptomatic. Plan to go to labor economics professor for balloon pump tomorrow, then willgo to [...] CODE Dain Colón MD Cardiology, M1-S2, Pager #[phone] 06/12/24 Associated attestation - Ethel Carrillo MD [...] (abstinent since admission), ASCVD with multiple prior MD and PCIs, ICM/HFrEF LVEF 30% (all territories [...] of two midnights or is on the [facility] inpatient only procedure list (status C) due to: acute myocardial infarction requiring titration of IV medication and fluid monitoring and decompensated congestive heart failure requiring IV medication and fluid monitoring Ethel Carrillo MD Cardiovascular Medicine Personal Pager [phone] 06/12/2024 9:12 PM * Alejandra Baumann, SPECIMEN COLLECTOR - 06/11/2024 4:21 PM EST Images from [...] too aggressive, suggest ICR 1:6 (rule of [id number] = 6.25). George is up and walking [...] ischemic cardiomyopathy with HFrEF (~30% EF), prior MD with stents, DM type 2, HTN, HLD, [...] ac, metformin 1000mg BID Alejandra Baumann APRN [facility] Endocrinology Diabetes Management Pager [phone] Weekends please page [phone] 35 minutes were spent over the course [...] PCP: Mauro Berumen MD PCP phone number: [phone] Date of Admission: 06/02/2024 ( Hospital Day 9 days ) Attending:Melida Valdes MD ID: 69 y.o. male with a h/o DM type 2, HTN, HLD, current smoker (2-3 cigarettes/day), HFrEF with anICD for low EF (~30%), and CAD with prior MD x3 with J[facility]NA placed in [facility], presented to [facility] with 1 hour of retrosternal CP (05/13) while watching TV, found to have STEMI. Active Problems: Active Hospital Problems Diagnosis STEMI (ST elevation myocardial infarction) Cardiac resynchronization therapy defibrillator (LINING PARTS SEWER-D) - Medtronic Amplia Cardiomyopathy, ischemic Acute on chronic heart failure with reduced ejection fraction (HFrEF, <= 40%) Coronary artery disease involving [place] coronary artery of [place] heart without angina pectoris Type 2 diabetes [...] 06/03/24 0400 Labs: Recent Labs 06/11/2421206/10/24 0155 06/09/2421106/08/24 0321 06/07/24 0241 WBC 9.91* 9.00 9.80* 9.92* 10.06* HGB 15.3 14.9 15.5 15.1 14.8 HCT 47.5 46.4 47.4 46.7 46.2 PLATELET 184 191 205 203 202 MCV 92.6 92.2 91.5 91.7 92.0 Recent Labs 06/11/2421206/10/24 01506/09/24 0825 06/09/2421106/08/24 0321 06/07/24 0944 06/07/24 0241 NA 134* [...] in the last 7068 hours. Invalid input(s): [id number] Recent Labs 06/11/24 0357 06/11/24 0050 06/10/24 1922 06/10/24 1735 06/10/24 1125 06/10/24 0746 06/10/24 0423 06/10/24 0005 06/09/24 2036 06/09/24 1727 06/09/24 1152 06/09/24 0810 POCGLU 132 144 236* 123 216* 206* 154 125 197 174 211* 209* Heme No results for input(s): LDH, HAPTOGLOBIN, URICACID in the last 168 hours. ABG (Arterial Blood Gas) No results found for: PHART, PO2ART, YUB6DMB, AVF9LUS Microbiology: Microbiology Results (Last 30 days) No results found for the last 720 hours. Imaging: Results for orders placed or performed during the hospital encounter of 06/02/24 XR Chest One View (Exam End: 06/03/2024 2:41 AM) Result Value WORKSTATION ID [id number] Impression No radiographically evident acute cardiopulmonary process. Thank you for letting us participate in the care of this patient. If you are a health care provider and have any questions regarding this report, please contact the number below. For patients who have questions please contact the health property caretaker that requested your imaging first. Cardiac Morphology Function wwo Contrast (Exam End: 06/07/2024 1:10 PM) Result Value WORKSTATION ID [id number] Impression - Findings consistent with an ischemic [...] - Mildly dilated left ventricle size with ddlokovj-ft-okujvrmb decreased LV systolic function. LV ejection fraction [...] who have questions please contact the health property caretaker that requested your imaging first. Chest wo Contrast (Generic) (Exam End: 06/03/2024 4:33 PM) Result Value WORKSTATION ID [id number] Impression Cardiomegaly. Biventricular ICD leads in place. Thank you for letting us participate in the care of this patient. If you are a health care provider and have any questions regarding this report, please contact the number below. For patients who have questions please contact the health property caretaker that requested your imaging first. Chest PA & Lateral (Generic) (Exam End: 06/07/2024 7:03 AM) Result Value WORKSTATION ID [id number] Impression Biventricular ICD leads intact and in [...] who have questions please contact the health property caretaker that requested your imaging first. : Limited echo performed by fellow director recreation to assess LV function. Left ventricle is [...] Infusions: heparin (porcine) infusion 1,400 Units/hr (06/10/24 2790) PRN Meds:.insulin lispro, glucose 40% oral geL [...] ischemic cardiomyopathy with HFrEF (~30% EF), prior MD with stents, DM type 2, HTN, HLD, [...] CODE Dain Colón MD Cardiology, M1-S2, Pager #[phone] 06/11/24 Associated attestation - Ethel Carrillo MD [...] (abstinent since admission), ASCVD with multiple prior MD and PCIs, ICM/HFrEF LVEF 30% (all territories [...] of two midnights or is on the [facility] inpatient only procedure list (status C) due to: acute myocardial infarction requiring titration of IV medication and fluid monitoring and decompensated congestive heart failure requiring IV medication and fluid monitoring Ethel Carrillo MD Cardiovascular Medicine Personal Pager [phone] 06/11/2024 9:35 PM * BarbraHilary - 06/10/2024 12:39 PM EST Nutrition Services Note George Mehta is a 69 y.o. male Reason for intervention: hospital day 9 Nutrition Plan: Continue diet order: 60/60/75 CHO Level 2 Encourage good PO Lasix and Insulin noted Monitor weight Patient scheduled for a hospital day 9 nutrition evaluation. Patient Admitting Clerk attempted to meet with pt at bedside [...] unless consulted in the interim. Hilary Belle [employer] Mill Inspector * Mariia Montero RN - 06/10/2024 12:23 PM EST I have met with the patient to: discuss discharge planning needs. provide the [facility], Office of Care Management letter from the [employer] pertaining to rehab referrals. provide a letter describing our affiliations within the [facility] and educate about their right to choose where referrals are sent. provide a list of Home Health Agencies / Durable Medical Equipment vendors which serve their preferred geographic area. provided patient with [facility] Star Quality Rating handout. They have requested referrals to: [facility] [address] [place] [id number] RN / PT Anticipated d/c date: 06/20/24 Note routed to a Bailing Machine Operator who will communicate referrals to facilities and provide any required information. * Dain Colón MD - 06/10/2024 7:17 AM EST Images from the original note were not included. . Cardiology Progress Note Patient info: Name: George Mehta : 1955 PCP: Mauro Berumen MD PCP phone number: [phone] Date of Admission: 06/02/2024 ( Hospital Day 8 days ) Attending:Melida Valdes MD ID: 69 y.o. male with a h/o DM type 2, HTN, HLD, current smoker (2-3 cigarettes/day), HFrEF with anICD for low EF (~30%), and CAD with prior MD x3 with JENNA placed in [place], Melanoma, PAD, presented to [facility] with 1 hour of retrosternal CP (05/13) while watching TV, found to have STEMI. Active Problems: Active Hospital Problems Diagnosis STEMI (ST elevation myocardial infarction) Cardiac resynchronization therapy defibrillator (LINING PARTS SEWER-D) - Medtronic Amplia Cardiomyopathy, ischemic Acute on chronic heart failure with reduced ejection fraction (HFrEF, <= 40%) Coronary artery disease involving [place] coronary artery of [place] heart without angina pectoris Type 2 diabetes [...] for the past 168 hrs: Weight 06/10/24 041 93.5 kg (206 lb 3.2 oz) 06/09/24 043 94 kg (207 lb 3.2 oz) 06/08/24 0346 94 kg (207 lb 3.2 oz) 06/07/24 041 94.3 kg (207 lb 14.3 oz) 06/06/24 0531 94.2 kg (207 lb 10.8 oz) 06/05/24 043 94 kg (207 lb 3.7 oz) 06/04/24 044 95 kg (209 lb 6.4 oz) Admit [...] in the last 7068 hours. Invalid input(s): [id number] Recent Labs 06/10/24 0423 06/10/24 0005 06/09/24 2036 06/09/24 1727 06/09/24 1152 06/09/24 0810 06/09/24 0440 06/09/24 0034 06/08/24 2027 06/08/24 1616 06/08/24 1235 06/08/24 0810 POCGLU 154 125 197 174 211* 209* 131 186 176 159 226* 190 Heme No results for input(s): LDH, HAPTOGLOBIN, URICACID in the last 168 hours. ABG (Arterial Blood Gas) No results found for: PHART, PO2ART, ULW8AHB, DYR6ATC Microbiology: Microbiology Results (Last 30 days) No results found for the last 720 hours. Imaging: Results for orders placed or performed during the hospital encounter of 06/02/24 XR Chest One View (Exam End: 06/03/2024 2:41 AM) Result Value WORKSTATION ID [id number] Impression No radiographically evident acute cardiopulmonary process. Thank you for letting us participate in the care of this patient. If you are a health care provider and have any questions regarding this report, please contact the number below. For patients who have questions please contact the health property caretaker that requested your imaging first. Cardiac Morphology Function wwo Contrast (Exam End: 06/07/2024 1:10 PM) Result Value WORKSTATION ID [id number] Impression - Findings consistent with an ischemic [...] - Mildly dilated left ventricle size with wtqjpvvq-br-aptoikyj decreased LV systolic function. LV ejection fraction [...] who have questions please contact the health property caretaker that requested your imaging first. Chest wo Contrast (Generic) (Exam End: 06/03/2024 4:33 PM) Result Value WORKSTATION ID [id number] Impression Cardiomegaly. Biventricular ICD leads in place. Thank you for letting us participate in the care of this patient. If you are a health care provider and have any questions regarding this report, please contact the number below. For patients who have questions please contact the health property caretaker that requested your imaging first. Chest PA & Lateral (Generic) (Exam End: 06/07/2024 7:03 AM) Result Value WORKSTATION ID [id number] Impression Biventricular ICD leads intact and in [...] who have questions please contact the health property caretaker that requested your imaging first. : Limited echo performed by fellow director recreation to assess LV function. Left ventricle is [...] ischemic cardiomyopathy with HFrEF (~30% EF), prior MD with stents, DM type 2, HTN, HLD, [...] CODE Dain Colón MD Cardiology, M1-S2, Pager #[phone] 06/10/24 Associated attestation - Melida Valdes MD [...] a lytic and brought directly [facility] [employer]. Cardiac catheterization demonstrated multivessel disease with severe [...] who is agreeable Melida Valdes MD Staff Saw Setter * Cherelle Fregoso APRN - 06/09/2024 8:59 [...] ischemic cardiomyopathy with HFrEF (~30% EF), prior MD with stents, DM type 2, HTN, HLD, [...] Cardiology Progress Note Patient info: Name: George eMhta : 1955 PCP: Mauro Berumen MD PCP phone number: [phone] Date of Admission: 06/02/2024 ( Hospital Day 7 days ) Attending:Melida Valdes MD ID: 69 y.o. male with a h/o DM type 2, HTN, HLD, current smoker (2-3 cigarettes/day), HFrEF with anICD for low EF (~30%), and CAD with prior MD x3 with JENNA placed in [place], Melanoma, PAD, presented to [facility] with 1 hour of retrosternal CP (05/13) while watching TV, found to have STEMI. Active Problems: Active Hospital Problems Diagnosis STEMI (ST elevation myocardial infarction) Acute on chronic heart failure with reduced ejection fraction (HFrEF, <= 40%) Coronary artery disease involving [place] coronary artery of [place] heart without angina pectoris Type 2 diabetes [...] 0333 06/05/24 0904 06/05/24 0344 06/04/24 0438 06/03/24212 NA 136 135 -- -- 136 -- [...] in the last 7068 hours. Invalid input(s): [id number] Recent Labs 06/09/24 0440 06/09/24 0034 06/08/24 2027 06/08/24 1616 06/08/24 1235 06/08/24 0810 06/08/24 0409 06/07/24 2357 06/07/24 2005 06/07/24 1631 06/07/24 1105 06/07/24 1103 POCGLU 131 186 176 159 226* 190 151 188 118 174 221* 250* Heme No results for input(s): LDH, HAPTOGLOBIN, URICACID in the last 168 hours. ABG (Arterial Blood Gas) No results found for: PHART, PO2ART, XSK1IYW, NNQ6QBX Microbiology: Microbiology Results (Last 30 days) No results found for the last 720 hours. Imaging: Results for orders placed or performed during the hospital encounter of 06/02/24 XR Chest One View (Exam End: 06/03/2024 2:41 AM) Result Value WORKSTATION ID [id number] Impression No radiographically evident acute cardiopulmonary process. Thank you for letting us participate in the care of this patient. If you are a health care provider and have any questions regarding this report, please contact the number below. For patients who have questions please contact the health property caretaker that requested your imaging first. Cardiac Morphology Function wwo Contrast (Exam End: 06/07/2024 1:10 PM) Result Value WORKSTATION ID [id number] Impression - Findings consistent with an ischemic [...] - Mildly dilated left ventricle size with vghlcpwk-ae-ssbpalkw decreased LV systolic function. LV ejection fraction [...] who have questions please contact the health property caretaker that requested your imaging first. Chest wo Contrast (Generic) (Exam End: 06/03/2024 4:33 PM) Result Value WORKSTATION ID [id number] Impression Cardiomegaly. Biventricular ICD leads in place. Thank you for letting us participate in the care of this patient. If you are a health care provider and have any questions regarding this report, please contact the number below. For patients who have questions please contact the health property caretaker that requested your imaging first. Chest PA & Lateral (Generic) (Exam End: 06/07/2024 7:03 AM) Result Value WORKSTATION ID [id number] Impression Biventricular ICD leads intact and in [...] who have questions please contact the health property caretaker that requested your imaging first. : Limited echo performed by fellow director recreation to assess LV function. Left ventricle is [...] Infusions: heparin (porcine) infusion 1,400 Units/hr (06/08/24 3943) PRN Meds:.glucose 40% oral geL OR dextrose [...] ischemic cardiomyopathy with HFrEF (~30% EF), prior MD with stents, DM type 2, HTN, HLD, [...] CODE Dain Colón MD Cardiology, M1-S2, Pager #[phone] 06/09/24 Associated attestation - Melida Valdes MD [...] a lytic and brought directly to [facility]. Cardiac catheterization demonstrated multivessel disease with severe [...] insertion low EF. Melida Valdes MD Staff Saw Setter * Alejandra Baumann, SPECIMEN COLLECTOR - 06/08/2024 4:10 PM EST Images from [...] ischemic cardiomyopathy with HFrEF (~30% EF), prior MD with stents, DM type 2, HTN, HLD, [...] to optimize glucose control Alejandra Baumann APRN [facility] Endocrinology Diabetes Management Pager [phone] Weekends please page [phone] 35 minutes were spent over the course [...] PCP: Mauro Berumen MD PCP phone number: [phone] Date of Admission: 06/02/2024 ( Hospital Day 6 days ) Attending:Melida Valdes MD ID: 69 y.o. male with a h/o DM type 2, HTN, HLD, current smoker (2-3 cigarettes/day), HFrEF with anICD for low EF (~30%), and CAD with prior MD x3 with JENNA placed in [place], Melanoma, PAD, presented to [facility] with 1 hour of retrosternal CP (05/13) while watching TV, found to have STEMI. Active Problems: Active Hospital Problems Diagnosis STEMI (ST elevation myocardial infarction) Acute on chronic heart failure with reduced ejection fraction (HFrEF, <= 40%) Coronary artery disease involving [place] coronary artery of [place] heart without angina pectoris Type 2 diabetes [...] Labs 06/08/24 0321 06/07/24 0241 06/06/24 0333 11/02/34306/04/24437 WBC 9.92* 10.06* 9.81* 10.83* 11.45* HGB [...] in the last 7068 hours. Invalid input(s): [id number] Recent Labs 06/08/24 0409 06/07/24 2357 06/07/24200406/07/24 1631 06/07/24 1105 06/07/24 1103 06/07/24 0745 06/07/24 0425 06/07/24 0008 06/06/24 2018 06/06/24 1539 06/06/24 1339 POCGLU 151 188 118 174 221* 250* 175 127 182 143 147 317* Heme No results for input(s): LDH, HAPTOGLOBIN, URICACID in the last 168 hours. ABG (Arterial Blood Gas) No results found for: PHART, PO2ART, GDM1MHD, NBN5MDF Microbiology: Microbiology Results (Last 30 days) No results found for the last 720 hours. Imaging: Results for orders placed or performed during the hospital encounter of 06/02/24 XR Chest One View (Exam End: 06/03/2024 2:41 AM) Result Value WORKSTATION ID [id number] Impression No radiographically evident acute cardiopulmonary process. Thank you for letting us participate in the care of this patient. If you are a health care provider and have any questions regarding this report, please contact the number below. For patients who have questions please contact the health property caretaker that requested your imaging first. Cardiac Morphology Function wwo Contrast (Exam End: 06/07/2024 1:10 PM) Result Value WORKSTATION ID [id number] Impression - Findings consistent with an ischemic [...] - Mildly dilated left ventricle size with mzydnawr-zj-hjasvayc decreased LV systolic function. LV ejection fraction [...] who have questions please contact the health property caretaker that requested your imaging first. Chest wo Contrast (Generic) (Exam End: 06/03/2024 4:33 PM) Result Value WORKSTATION ID [id number] Impression Cardiomegaly. Biventricular ICD leads in place. Thank you for letting us participate in the care of this patient. If you are a health care provider and have any questions regarding this report, please contact the number below. For patients who have questions please contact the health property caretaker that requested your imaging first. Chest PA & Lateral (Generic) (Exam End: 06/07/2024 7:03 AM) Result Value WORKSTATION ID [id number] Impression Biventricular ICD leads intact and in [...] who have questions please contact the health property caretaker that requested your imaging first. : Limited echo performed by fellow director recreation to assess LV function. Left ventricle is [...] Infusions: heparin (porcine) infusion 1,400 Units/hr (06/08/24 0416) PRN Meds:.insulin lispro, potassium chloride ER OR [...] ischemic cardiomyopathy with HFrEF (~30% EF), prior MD with stents, DM type 2, HTN, HLD, [...] CODE Dain Colón MD Cardiology, M1-S2, Pager #[phone] 06/08/24 Associated attestation - Melida Valdes MD [...] a lytic and brought directly to [facility] [employer]. Cardiac catheterization demonstrated multivessel disease with severe [...] Otherwise clinically stable Melida Valdes MD Staff Saw Setter * Ross Manuel PA - 06/07/2024 12:00 PM EST Cardiac Electrophysiology CIED Interrogation/Programming Note Asked by MRI staff to evaluate and program Medtronic LINING PARTS SEWER-D to allow for MR imaging. Patient Active Problem List Diagnosis ','STEMI (ST elevation myocardial infarction) Acute on chronic heart failure with reduced ejection fraction (HFrEF, <= 40%) Coronary artery disease involving [place] coronary artery of [place] heart without angina pectoris Type 2 diabetes mellitus Device Data: [employer] MRI Quad LINING PARTS SEWER-D LYCT2UZ #[id number] 06/16/2019 RA Medtronic 4076 CapSureFix Novus [id number] 06/16/2019 RV Medtronic 6935M [id number] 06/16/2019 LV Medtronic 4298 Attain Performa MRI [id number] 06/16/2019 DDD @ 50/130/130 Adaptive Bi-V and LV VF >188bpm ATP, 35j x6 FVT >188-222bpm burst 2, 35jx5 VT Battery longevity: 2.5yrs; charge time 4s P wave: 2.3mV R wave: >20.0mV Atrial impedance: 458 ohms RV impedance: 646 ohms LV impedance: 722 ohms Atrial threshold: 0.5V @ 0.4ms RV threshold: LV threshold: 1.75V @ 0.4ms AP 0.2% ASSISTANT HVAC MECHANIC 97.7% AT/AF 0% Impression and Plan: 1. Interrogated device to determine suitability for MRI 2. Programmed to MRI safe mode - VOO @ 70 3. Scan performed 4. Programming restored to baseline settings 5. Reinterrogated to verify appropriate function and settings 6. Device follow up as previously scheduled Provider: HENOK Meyer EP Consult attending physician: Libby Barton MD EP Consult positional pager #[phone](EPMD) EP Device interrogation positional pager # [phone] * Dain Colón MD - 06/07/2024 7:09 AM EST Images from the original note were not included. . Cardiology Progress Note Patient info: Name: George Mehta : 1955 PCP: Mauro Berumen MD PCP phone number: [phone] Date of Admission: 06/02/2024 ( Hospital Day 5 days ) Attending:Melida Valdes MD ID: 69 y.o. male with a h/o DM type 2, HTN, HLD, current smoker (2-3 cigarettes/day), HFrEF with anICD for low EF (~30%), and CAD with prior MD x3 with JENNA placed in [place], Melanoma, PAD, presented to [facility] with 1 hour of retrosternal CP (05/13) while watching TV, found to have STEMI. Active Problems: Active Hospital Problems Diagnosis STEMI (ST elevation myocardial infarction) Acute on chronic heart failure with reduced ejection fraction (HFrEF, <= 40%) Coronary artery disease involving [place] coronary artery of [place] heart without angina pectoris Type 2 diabetes [...] in the last 7068 hours. Invalid input(s): [id number] Recent Labs 06/07/24 0425 06/07/24 0008 06/06/24 2018 06/06/24 1539 06/06/24 1339 06/06/24 1134 06/06/24 0757 06/06/24 0653 06/05/24 2231 06/05/24 1622 06/05/24 1134 06/05/24 0727 POCGLU 127 182 143 147 317* 264* 195 187 238* 205* 211* 166 Heme No results for input(s): LDH, HAPTOGLOBIN, URICACID in the last 168 hours. ABG (Arterial Blood Gas) No results found for: PHART, PO2ART, CIW5TZI, IRE4USK Microbiology: Microbiology Results (Last 30 days) No results found for the last 720 hours. Imaging: Results for orders placed or performed during the hospital encounter of 06/02/24 XR Chest One View (Exam End: 06/03/2024 2:41 AM) Result Value WORKSTATION ID [id number] Impression No radiographically evident acute cardiopulmonary process. Thank you for letting us participate in the care of this patient. If you are a health care provider and have any questions regarding this report, please contact the number below. For patients who have questions please contact the health property caretaker that requested your imaging first. Chest wo Contrast (Generic) (Exam End: 06/03/2024 4:33 PM) Result Value WORKSTATION ID [id number] Impression Cardiomegaly. Biventricular ICD leads in place. Thank you for letting us participate in the care of this patient. If you are a health care provider and have any questions regarding this report, please contact the number below. For patients who have questions please contact the health property caretaker that requested your imaging first. : Limited echo performed by fellow director recreation to assess LV function. Left ventricle is [...] Infusions: heparin (porcine) infusion 1,400 Units/hr (06/06/24 4143) PRN Meds:.insulin lispro, potassium chloride ER OR [...] ischemic cardiomyopathy with HFrEF (~30% EF), prior MD with stents, DM type 2, HTN, HLD, [...] Dain Colón MD (PGY-1) Cardiology, M1-S2, Pager #[phone] 06/07/24 Associated attestation - Melida Valdes MD [...] a lytic and brought directly to the [facility]. Cardiac catheterization demonstrated multivessel disease with severe [...] for further guidance. Melida Valdes MD Staff Saw Setter * Dain Colón MD - 06/06/2024 7:17 AM EST Images from the original note were not included. . Cardiology Progress Note Patient info: Name: George Mehta : 1955 PCP: Mauro Berumen MD PCP phone number: [phone] Date of Admission: 06/02/2024 ( Hospital Day 4 days ) Attending:Melida Valdes MD ID: 69 y.o. male with a h/o DM type 2, HTN, HLD, current smoker (2-3 cigarettes/day), HFrEF with anICD for low EF (~30%), and CAD with prior MD x3 with JENNA placed in [place], Melanoma, PAD, presented to [facility] with 1 hour of retrosternal CP (05/13) while watching TV, found to have STEMI. Active Problems: Active Hospital Problems Diagnosis STEMI (ST elevation myocardial infarction) Acute on chronic heart failure with reduced ejection fraction (HFrEF, <= 40%) Coronary artery disease involving [place] coronary artery of [place] heart without angina pectoris Type 2 diabetes [...] 1635 06/04/24 1041 06/04/24 0438 06/03/24212 NA 136 -- 136 -- -- -- [...] in the last 7068 hours. Invalid input(s): [id number] Recent Labs 06/06/24 0653 06/05/24 2231 06/05/24 1622 06/05/24 1134 06/05/24 0727 06/04/24 1943 06/04/24 1526 06/04/24 1109 06/04/24 0711 06/03/24 2005 06/03/24 1748 06/03/24 1114 POCGLU 187 238* 205* 211* 166 175 154 188 182 136 191 166 Heme No results for input(s): LDH, HAPTOGLOBIN, URICACID in the last 168 hours. ABG (Arterial Blood Gas) No results found for: PHART, PO2ART, HNY0HGG, TGU4NOC Microbiology: Microbiology Results (Last 30 days) No results found for the last 720 hours. Imaging: Results for orders placed or performed during the hospital encounter of 06/02/24 XR Chest One View (Exam End: 06/03/2024 2:41 AM) Result Value WORKSTATION ID [id number] Impression No radiographically evident acute cardiopulmonary process. Thank you for letting us participate in the care of this patient. If you are a health care provider and have any questions regarding this report, please contact the number below. For patients who have questions please contact the health property caretaker that requested your imaging first. Chest wo Contrast (Generic) (Exam End: 06/03/2024 4:33 PM) Result Value WORKSTATION ID [id number] Impression Cardiomegaly. Biventricular ICD leads in place. Thank you for letting us participate in the care of this patient. If you are a health care provider and have any questions regarding this report, please contact the number below. For patients who have questions please contact the health property caretaker that requested your imaging first. : Limited echo performed by fellow director recreation to assess LV function. Left ventricle is [...] ischemic cardiomyopathy with HFrEF (~30% EF), prior MD with stents, DM type 2, HTN, HLD, [...] Dain Colón MD (PGY-1) Cardiology, M1-S2, Pager #[phone] 06/06/24 Associated attestation - Melida Valdes MD [...] a lytic and brought directly to the [facility]. Cardiac catheterization demonstrated multivessel disease with severe [...] management. Help appreciated Melida Valdes MD Staff Saw Setter * Frederick Dunn MD - 06/05/2024 8:13 AM EDT Images from the original note were not included. . Cardiology Progress Note Patient info: Name: George Mehta : 1955 PCP: Mauro Berumen MD PCP phone number: [phone] Date of Admission: 06/02/2024 ( Hospital Day 3 days ) Attending:Melida Valdes MD ID: 69 y.o. male with a h/o DM type 2, HTN, HLD, current smoker (2-3 cigarettes/day), HFrEF with anICD for low EF (~30%), and CAD with prior MD x3 with JENNA placed in [place], Melanoma, PAD, presented to [facility] with 1 hour of retrosternal CP (05/13) [...] 06/03/24 0636 97.1 kg (214 lb) 06/02/24 225 102 kg (224 lb 13.9 oz) Admit [...] in the last 7068 hours. Invalid input(s): [id number] Recent Labs 06/05/24 1134 06/05/24 0727 06/04/24 1943 06/04/24 1526 06/04/24 1109 06/04/24 0711 06/03/24 2005 06/03/24 1748 06/03/24 1114 06/03/24 0754 06/02/24 2331 POCGLU 211* 166 175 154 188 182 136 191 166 195 156 Heme No results for input(s): LDH, HAPTOGLOBIN, URICACID in the last 168 hours. ABG (Arterial Blood Gas) No results found for: PHART, PO2ART, VFY4VCA, WIT3TXK Microbiology: Microbiology Results (Last 30 days) No results found for the last 720 hours. Imaging: Results for orders placed or performed during the hospital encounter of 06/02/24 XR Chest One View (Exam End: 06/03/2024 2:41 AM) Result Value WORKSTATION ID [id number] Impression No radiographically evident acute cardiopulmonary process. Thank you for letting us participate in the care of this patient. If you are a health care provider and have any questions regarding this report, please contact the number below. For patients who have questions please contact the health property caretaker that requested your imaging first. Chest wo Contrast (Generic) (Exam End: 06/03/2024 4:33 PM) Result Value WORKSTATION ID [id number] Impression Cardiomegaly. Biventricular ICD leads in place. Thank you for letting us participate in the care of this patient. If you are a health care provider and have any questions regarding this report, please contact the number below. For patients who have questions please contact the health property caretaker that requested your imaging first. : Limited echo performed by fellow director recreation to assess LV function. Left ventricle is [...] ischemic cardiomyopathy with HFrEF (~30% EF), prior MD with stents, DM type 2, HTN, HLD, [...] all the information they need regarding the LINING PART[employer] SEWER-D.Plan for MRI tomorrow. Starting 40 mg IV [...] a lytic and brought directly to the [facility]. Cardiac catheterization demonstrated multivessel disease with severe [...] maintenance of 40. Melida Valdes MD Staff Saw Setter * Migel Javier RN - 06/05/2024 6:21 AM EDT Implanted device record scanned into: Chart Review-->Media-->External Cardiology-->03/25/2024. Medtronic Amplia MRI Quad CRTD [id number] Serial #: [id number] DDD mode A + Bi/V Rates 50-130 Migel Javier RN * Dain Colón MD - 06/04/2024 11:16 AM EDT Implant Records Requested Type: LINING PART[employer] SEWER-D Postal Carrier: [employer] Product: [id number] Amplia MRI MRI compatibility: Compatible for 1.5-3 T Model #: [id number] Placed at: [place], [place] Records requested for MRI: 1. Operative report 2. Implant log I requested that these records be sent to our MRI department, Dain Colón MD 06/04/24 11:58 AM * Dain Colón MD - 06/04/2024 6:57 AM EDT Images from the original note were not included. . Cardiology Progress Note Patient info: Name: George Mehta : 1955 PCP: Mauro Berumen MD PCP phone number: [phone] Date of Admission: 06/02/2024 ( Hospital Day 2 days ) Attending:Delroy Fofana MD ID: 69 y.o. male with a h/o DM type 2, HTN, HLD, current smoker (2-3 cigarettes/day), HFrEF with anICD for low EF (~30%), and CAD with prior MD x3 with JENNA placed in [place], Melanoma, PAD, presented to [facility] with 1 hour of retrosternal CP (05/13) [...] in the last 7068 hours. Invalid input(s): [id number] Recent Labs 06/03/24 2005 06/03/24 1748 06/03/24 1114 06/03/24 0754 06/02/24 2331 POCGLU 136 191 166 195 156 Heme No results for input(s): LDH, HAPTOGLOBIN, URICACID in the last 168 hours. ABG (Arterial Blood Gas) No results found for: PHART, PO2ART, PHI4OBV, BRO1PNK Microbiology: Microbiology Results (Last 30 days) No results found for the last 720 hours. Imaging: Results for orders placed or performed during the hospital encounter of 06/02/24 XR Chest One View (Exam End: 06/03/2024 2:41 AM) Result Value WORKSTATION ID [id number] Impression No radiographically evident acute cardiopulmonary process. Thank you for letting us participate in the care of this patient. If you are a health care provider and have any questions regarding this report, please contact the number below. For patients who have questions please contact the health property caretaker that requested your imaging first. Chest wo Contrast (Generic) (Exam End: 06/03/2024 4:33 PM) Result Value WORKSTATION ID [id number] Impression Cardiomegaly. Biventricular ICD leads in place. Thank you for letting us participate in the care of this patient. If you are a health care provider and have any questions regarding this report, please contact the number below. For patients who have questions please contact the health property caretaker that requested your imaging first. : Limited echo performed by fellow director recreation to assess LV function. Left ventricle is [...] ischemic cardiomyopathy with HFrEF (~30% EF), prior MD with stents, DM type 2, HTN, HLD, [...] 40 mg IV given in the labor economics professor; assess diuretic response, consider re-dosing -Continue carvedilol; [...] a lytic and brought directly to the [facility]. Cardiac catheterization demonstrated multivessel disease with severe [...] Friday -Diuresis with Jovanni Valdes MD Staff Saw Setter * Fatmata Mcallister PT - 06/03/2024 3:29 [...] vs PCI) Fatmata Mcallister PT, MSPT Pager [phone] Inpatient Physical Therapy * Marlin Gómez MD [...] Marlin Gómez MD Cardiology S2, Pager # [phone] 06/03/2024 * Delroy Fofana MD - 06/03/2024 7:16 AM EDT Images from the original note were not included. . Cardiology Progress Note Patient info: Name: George Mehta : 1955 PCP: Mauro Berumen MD PCP phone number: [phone] Date of Admission: 06/02/2024 ( Hospital Day 1 day ) Attending:Nuha Rojo MD ID: 69 y.o. male with a h/o DM type 2, HTN, HLD, current smoker (2-3 cigarettes/day), HFrEF with anICD for low EF (~30%), and CAD with prior MD x3 with JENNA placed in [place], Melanoma, PAD, presented to [facility] with 1 hour of retrosternal CP (05/13) [...] in the last 7068 hours. Invalid input(s): [id number] Recent Labs 06/02/24 2331 POCGLU 156 Heme No results for input(s): LDH, HAPTOGLOBIN, URICACID in the last 168 hours. ABG (Arterial Blood Gas) No results found for: PHART, PO2ART, LRD2ULP, NXQ4ZNP Microbiology: Microbiology Results (Last 30 days) No results found for the last 720 hours. Imaging: Results for orders placed or performed during the hospital encounter of 06/02/24 XR Chest One View (Exam End: 06/03/2024 2:41 AM) Result Value WORKSTATION ID [id number] Impression No radiographically evident acute cardiopulmonary process. Thank you for letting us participate in the care of this patient. If you are a health care provider and have any questions regarding this report, please contact the number below. For patients who have questions please contact the health property caretaker that requested your imaging first. : Limited echo performed by fellow director recreation to assess LV function. Left ventricle is [...] ischemic cardiomyopathy with HFrEF (~30% EF), prior MD with stents, DM type 2, HTN, HLD, [...] 40 mg IV given in the labor economics professor; assess diuretic response, consider re-dosing -Continue carvedilol; [...] of care per Dain Colón MD (medical surgical tech). Please refer to his note above for details. Very pleasant 69 year old male but he is obese, diabetic, and he is a SMOKER with known prior CAD and moderately reduced LVEF (30%). He has a pacer. History of surgical resection of melanoma on his head. The patient was transferred overnight to [facility] as a STEMI. He was treated initially with a lytic (TNK) and brought directly to the labor economics professor. The cath demonstrated 3VD with diffuse disease [...] - 06/13/2024 10:58 AM EST ICU Blue (#[id number]) H&P Patient info: Name: George Mehta : 1955 PCP: Mauro Berumen MD PCP phone number: [phone] Date of Admission: 06/02/2024 ( Hospital Day 11 days ) Attending:Haja Byrnes MD ID: George Mehta is a 69 y.o. male with a h/o DM type 2, HTN, HLD, current smoker (2-3 cigarettes/day), HFrEF with an ICD for low EF (~30%), and CAD with prior MD x3 with JENNA placed in [place], Melanoma, PAD, presented to [facility] with 1 hour of retrosternal CP (05/13) while watching TV, foundto have STEMI. HPI: Shahnaz Scanlon H&P 06/02 69 y.o. male with a h/o DM type 2, HTN, HLD, current smoker (2-3 cigarettes/day), HFrEF with an ICD for low EF (~30%), and CAD with prior MD x3 with JENNA placed in [place], Melanoma, PAD, presented to [facility] with 1 hour of retrosternal CP (05/13) while watching TV. CP was non-radiating, not asso ciated with diaphoresis, nausea, or SOB. Denies orthopnea, MARTÍNEZ, palpitations, or LE edema. ECG showed findings consistent with anterior STEMI. He received TNK and was transferred for PCI. Coronary angiography showed a small, non-dominant RCA with ocxx-ag-fpjstbnx disease and a dominant,heavily calcified left system with prior stents in the LAD and OM. The LM bifurcates into the LAD and LCX, both heavily calcified. The proximal LCX has a 75% calcified, aneurysmal lesion, and an 80% calcified lesion distally before a large OM2. OM1 is a HOISTMAN with in-stent restenosis, filling retrograde via collaterals. [...] mg Lasix was administered in the labor economics professor. Cardiac surgery was consulted and plan for [...] Blood Gas) No results for input(s): PHART, PKN4LNT, PO2ART, YVN5DZT, LACTATEVEN, UEJ1WGF, PFRATIOART2 in the last 168 hours. VBG (Venous Blood Gas) Recent Labs 06/10/24 1742 PHVEN 7.34 PO2VEN 24 CHA0XGZ 27.4 Mixed Venous Sat No results for input(s): J1JRNU2 in the last 168 hours. Intake/Output Summary [...] 06/13/24822 Patency/Maintenance infusing 06/13/24822 Phlebitis 0-->no symptoms 06/13/24 09 Infiltration 0-->no symptoms 06/13/24939 Site Signs/Symptoms no [...] in the last 7068 hours. Invalid input(s): YBURJWDYVXA0W Recent Labs 06/13/24 0741 06/13/24 0325 06/12/24 2353 06/12/24 1932 06/12/24 1541 06/12/24 1121 06/12/24 0800 06/12/24 0425 06/11/24 2356 06/11/24 2025 06/11/24 1624 06/11/24 1108 POCGLU 126 99 141 158 113 207* 169 132 135 210* 81 233* Heme No results for input(s): LDH, HAPTOGLOBIN, URICACID in the last 168 hours. ABG (Arterial Blood Gas) No results for input(s): PHART, TCO7FCP, PO2ART, HRJ5JOT, LACTATEVEN, YGH0QWW, PFRATIOART2 in the last 168 hours. VBG (Venous Blood Gas) Recent Labs 06/10/24 1742 PHVEN 7.34 PO2VEN 24 EIS9THC 27.4 Mixed Venous Sat No results for input(s): B3UDYI2 in the last 168 hours. Microbiology: Microbiology Results (Last 30 days) No results found for the last 720 hours. Assessment & Plan: George Mehta is a 69 y.o. male with CAD, ischemic cardiomyopathy with HFrEF (~30% EF), prior MD with stents, DM type 2, HTN, HLD, active smoker, presented with anterior STEMI. Angiography revealedsevere multivessel CAD with extensive calcification and YUE 3 flow in all vessels, without a clearculprit lesion. Currently pain-free after TNK, Plavix, ASA, and heparin, with mildly elevated LVEDPat 40 mmHg and mild volume overload. Admitted to [facility] for clarence-operative management following IABP placement. Planned for CABG 06/14. 06/13/2024 Patient now s/p IABP placement. Procedure occurred without complication. IABP set to 1:1. Will continue with heparin for ASCVD. Plan for CABG 06/14. Patient NPO at OR. #ASCVD / STEMI: -Holding Plavix; continue ASA [...] (Give Meds) Daily Healthy Menu Choices/Cardiac diet ([facility]-Diet) DVT Prophylaxis: SCD GI Prophylaxis: None Dispo: [...] TUD (abstinent since admission), ASCVD with multipleprior MD and PCIs, ICM/HFrEF LVEF 30% (all territories [...] is in the chart Rebeca Prado MD Line Up Machine Operator PGY6 [id number] * Shahnaz Scanlon MD - [...] low EF (~30%), and CAD with prior MD x3 with JENNA placed in [facility], presented to [facility] with 1 hour of retrosternal CP (05/13) while watching TV. CP was non-radiating, not assoc iated with diaphoresis, nausea, or SOB. Denies orthopnea, MARTÍNEZ, palpitations, or LE edema. ECG showed findings consistent with anterior STEMI. He received TNK and was transferred for PCI. Coronary angiography showed a small, non-dominant RCA with igdu-eu-pspwcpag disease and a dominant,heavily calcified left system with prior stents in the LAD and OM. The LM bifurcates into the LAD and LCX, both heavily calcified. The proximal LCX has a 75% calcified, aneurysmal lesion, and an 80% calcified lesion distally before a large OM2. OM1 is a HOISTMAN with in-stent restenosis, filling retrograde via collaterals. [...] mg Lasix was administered in the labor economics professor. Past Medical History: As per HPI Significant [...] Behavior: Behavior normal. Diagnostics: [facility] 06/02/2024 Coronary angiography revealed small [...] ischemic cardiomyopathy with HFrEF (~30% EF), prior MD with stents, DM type 2, HTN, HLD, [...] 40 mg IV given in the labor economics professor; assess diuretic response. -Continue carvedilol; hold Entresto [...] & Follow-up Care: Contact information for follow-up [facility] [address] [facility] [address] Cardiac Rehab, [address] [address] JAMIE GRAMAJO confirmed with [facility] that they [...] planning for tomorrow. Common items and call joens within reach. PLAN MOVING FORWARD: Diurese D/C [...] Roberts RN - 06/18/2024 10:50 AM EST [facility] CARDIAC REHABILITATION George Mehta was seen today regarding participation in the outpatient Phase 2 Cardiac Rehabilitation at [facility]. The patient agrees to a referral to [...] Payor: [employer] MANAGED MEDICARE / Plan: AARP [facility] MANAGED MEDICARE COMPLETE / Product Type: *No Product type* / Secondary Insurance: N/A Last Physical Therapy Recommendation: (home with ) with to be determined (06/15/24 1028) Plan for discharge is: Home w/ Services Outpatient Agency/Support Group Needs: Homecare agency Agency Choices: [facility] Services: Medication checks, Registered Nurse, Physical Therapy Agency Referrals: pending clinical course and PT/OT recs [facility] [address] [facility] [facility] [address] PHONE: [phone] FAX: [phone] Transportation: family or friend will provide Barriers [...] recs Patient is insured through: Primary Insurance: [facility] [employer] MEDICARE Payor: [facility] [employer] MEDICARE / Plan: [facility] MANAGED MEDICARE COMPLETE / Product Type: *No Product type* / Secondary Insurance: N/A Plan for discharge is: Home w/ Services Outpatient Agency/Support Group Needs: Homecare agency Agency Choices: [facility]: Medication checks, Registered Nurse, Physical Therapy Agency Referrals: pending clinical course and PT/OT recs [facility] [address] [place] [address] PHONE: [phone] FAX: [phone] Transportation: family or friend will provide Barriers [...] Loja MD - 06/14/2024 8:48 AM EST [facility] Operative Note Patient Name: George Mehta : [id number] MR#: [id number] Case Date: 06/14/2024 Surgeon: Surgeons and Role: * Bobby Loja MD - Primary * Rashi Bass PA - Physician Fire Claims Adjuster Preoperative diagnosis: CAD, MARIALUISA flickering mass on [...] FIBRINOGEN (Canceled), HEMOGLOBIN AND HEMATOCRIT, BLOOD Allison aGllagher 06/14/2024 1123 B : Blood Blood, Arterial [...] procedures today and tomorrow. Report called to [facility] - all belongings with patient. PLAN MOVING FORWARD: laboratory apparatus glass blower and transfer to CV. INDIVIDUALIZED FALL PREVENTION [...] No Patient is insured through: Primary Insurance: [facility] MANAGED MEDICARE Payor: [facility] MANAGED MEDICARE / Plan: [employer]ARP [employer] MANAGED MEDICARE COMPLETE / Product Type: *No Product type* / Secondary Insurance: N/A Plan for discharge is: Home w/ Services Outpatient Agency/Support Group Needs: Homecare agency, Agency Choices: [facility] Home Health Services: Medication checks, Registered Nurse, Physical Therapy Agency Referrals: [facility] [address] [place] [address] RN / PT Routed 06/10 Transportation: family [...] with home health services when medically ready. binder roller/Community Relations Manager will continue to follow patient???s progress and remain available if situation changes for coordination of care, psychosocial support and/or discharge planning. Anticipated Date of Discharge: 06/18/2024 Mariia Montero RN CM Extension [phone] * Plan of Care - Migel Javier [...] No Patient is insured through: Primary Insurance: [employer] MEDICARE Payor: [employer] MEDICARE / Plan: [facility] [employer] MEDICARE COMPLETE / Product Type: *No Product [...] consult for high risk PCI vs CABG binder roller/Community Relations Manager will continue to follow patient???s progress and remain available if situation changes for coordination of care, psychosocial support and/or discharge planning. Anticipated Date of Discharge: 06/11/2024 Mariia Montero RN Extension [phone] * Plan of Care - Becca Hope [...] ischemic cardiomyopathy with HFrEF (~30% EF), prior MD with stents, DM type 2, HTN, HLD, [...] Breakfast- varies - eggs with khoury or tajik muffin Lunch- turkey sandwich Supper- meat and [...] Infusions: heparin (porcine) infusion 1,400 Units/hr (06/06/24 0028) PRN: insulin lispro, potassium chloride ER OR [...] ischemic cardiomyopathy with HFrEF (~30% EF), prior MD with stents, DM type 2, HTN, HLD, [...] Baumann APRN Endocrinology Diabetes Management Service Pager: [phone] Weekends please page [phone] 80 minute visit was spent in counseling [...] mid to high 80's. PLAN MOVING FORWARD: H draws w/ AM labs. Continue with CT [...] y.o. male with a PMHx of previous MD s/p PCI x3, ICM/HFrEF (LVEF 30%) s/p ICD, DMII, HTN, HLD, remote melanoma, and smoker who presented to [facility] last night via EMS after developing acute, severe chest pain while watching TV. Patient was ruled in for STEMI, given TNK, ASA, plavix, heparin gtt, and sent to [facility] for coronary angiography. LHC demonstrated severely calcified left coronary system with notable LCx 75/80% lesions and HOISTMAN OM1 with ISR with collateral retrograde filling, [...] elevation myocardial infarction) Past Medical History: previous MD s/p PCI x3 ICM/HFrEF (LVEF 30%) s/p [...] is large. OM1 appears to be a HOISTMAN, with in stentrestenosis and fills retrograde via [...] with STEMI s/p TNK, [facility] showing multivessel CAD including ISR, [...] to our service. Signed: Paula Treviño PA-C [facility] Section of Cardiac Surgery Date: 06/03/2024 * Initial Assessments - Natalie, Catina A, SEARCH ADVERTISING STRATEGIST - 06/03/2024 10:32 AM EDT Office of Care Management Initial Assessment CHINA Humphrey reviewed record and discussed patient with Care Team. Source of Information: Team, bedside nurse, medical record, and Patient CH[place] Introduced self/reviewed role; services accepted. Admitted From: Transfer from another hospital Location: [facility] Reason for Hospitalization: Chest Pain [...] receiving care in [place] must abide by [place] law. The hierarchy [...] (i) The agent with financial power of cardiac cath technologist or a conservator appointed in accordance with [...] homeless or living in a mcfp (including now)?: No In the past 12 months has the electric, gas, oil, or water 27 bards threatened to shut off services in your [...] in the bathroom) Home Address confirmed as: [address] [place] [address] [address] [facility] [address] Social & Family Supports: All names listed [...] Pertinent/Service Specific Information: Health/Prescription Coverage: Primary Insurance: [facility] [employer] MEDICARE Payor: [facility] MANAGED MEDICARE / Plan: [facility] MANAGED MEDICARE COMPLETE / Product Type: *No Product type* / Secondary Insurance: N/A ; Prescription Coverage: Yes Preferred Pharmacy: [id number] - [place], [place] - [address] [facility] [address] [place] [id number] [place] Status: Patient is a : No Primary Care Provider confirmed: Mauro Berumen MD [phone] Patient/Caregiver Goals of Treatment: Potential Needs for [...] care as indicated. [facility], [phone]. [phone] * Brief Op Note - Angeles Gaxiola PA - 06/03/2024 12:23 AM EDT Preliminary Cardiac Catheterization Procedure Note: Patient Name: George Mehta : [id number] MR#: [id number] Case Date: 06/02/2024 - 06/03/2024 Door Manager: Surgeons and Role: * Nuha Shen MD - Primary * Angeles Gaxiola PA - Physician Fire Claims Adjuster Preoperative diagnosis: STEMI Postoperative diagnosis: * STEMI * Procedure(s) performed: RRA access [facility] Coronary angiogram IVUS LM/LAD/LCX Access: 6 Fr RRA A time-out was conducted prior to the start of the procedure to verify the correct patient and procedure, procedure location, and all relevant critical information. Preliminary findings: 69 year old current smoker (1-2 cigarette's per day), DM type 2, hypertension, dyslipidemia, ICD for HFrEF/low EF (~30%), CAD with prior MD and 3 stents historically (in [place]) who presented to [facility] with 1 hour of rest chest pain [...] is large. 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 Recommendations: surgical consult for possible open revascularization; [...] PM EST Office Visit Cardiology at [address] [phone] Moi Falcon MD 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) 06/14/2024 7:34 AM EST CAD Endoscopy W/Video-Asst Vein Friant, Cabg ([id number]) 06/14/2024 7:34 AM EST CAD Cabg, Artery-Vein, Two ([id number]) 06/14/2024 7:34 AM EST CAD Cabg, Arterial, Single ([id number]) 06/14/2024 7:34 AM EST CAD TRANSESOPHAGEAL ECHOCARDIOGRAM IN THE OR Routine 06/14/2024 7:20 AM EST Coronary artery disease involving [place] coronary artery of [place] heart without angina pectoris POC, GLUCOSE Routine [...] * POC, GLUCOSE (06/21/2024 3:51 AM EST) [facility] Glucometer, POC 142 65 - 199 mg/dL 06/21/2024 3:51 AM EST [facility] Comment:Supplemental ranges: <140 mg/dL before meals <180 mg/dL all other times of the day. Blood CAPILLARY BLOOD / Unknown 06/21/2024 3:51 AM EST 06/21/2024 3:51 AM EST Bobby Loja MD POINT OF CARE TEST O RDERABLES [facility] [place] [address] * (ABNORMAL) Basic Metabolic Panel (06/21/2024 2:09 AM EST) Glucose 169 65 - 199 mg/dL 06/21/2024 3:10 AM EST [facility] Comment:Glucose Concentratio n >=200 mg/dL plus symptoms is consistent with Diabetes Mellitus. Blood Urea Nitrogen 27(H) 10 - 20 mg/dL 06/21/2024 3:10 AM EST [facility] Creatinine 1.24 0.80 - 1.50 mg/dL 06/21/2024 3:10 AM [facility] Sodium 138 135 - 145 mMol/L 06/21/2024 3:10 AM [facility] Potassium 4.2 3.5 - 5.0 mMol/L 06/21/2024 3:10 AM [facility] Chloride 100 98 - 107 mMol/L 06/21/2024 3:10 AM [facility] Carbon Dioxide 27 22 - 31 mMol/L 06/21/2024 3:10 AM [facility] Anion Gap 11 5 - 15 mMol/L 06/21/2024 3:10 AM [facility] Calcium 8.7 8.5 - 10.5 mg/dL 06/21/2024 3:10 AM [facility] Est Glomerular Filtration Rate - Male 64 mL/min/1. 73 m?? 06/21/2024 3:10 AM [facility] Comment: This [...] APRN CHEMISTRY ORDERABL ES Performing Organization Address [facility] Co de Phone Number [facility] [place] [address] * POC, GLUCOSE (06/21/2024 12:04 AM EST) Glucometer, POC 157 65 - 199 mg/dL 06/21/2024 12:04 AM EST [facility] Comment:Supplemental ranges: <140 mg/dL before meals <180 mg/dL all other times of the day. Blood CAPILLARY BLOOD / Unknown 06/21/2024 12:04 AM EST 06/21/2024 12:04 AM EST Bobby Loja MD POINT OF CARE TEST O RDERABLES [facility] [place] [address] * POC, GLUCOSE (06/20/2024 11:14 PM EST) Glucometer, POC 67 65 - 199 mg/dL 06/20/2024 11:14 PM EST [facility] Comment:Supplemental ranges: <140 mg/dL before meals <180 mg/dL all other times of the day. Blood CAPILLARY BLOOD / Unknown 06/20/2024 11:14 PM EST 06/20/2024 11:14 PM EST Bobby Loja MD POINT OF CARE TEST O NIKA Performing Organization Address [facility] Co de Phone Number [facility] [place] [address] * POC, GLUCOSE (06/20/2024 7:16 PM EST) Glucometer, POC 132 65 - 199 mg/dL 06/20/2024 7:16 PM EST [facility] Comment:Supplemental ranges: <140 mg/dL before meals <180 mg/dL all other times of the day. Blood CAPILLARY BLOOD / Unknown 06/20/2024 7:16 PM EST 06/20/2024 7:16 PM EST Bobby Loja MD POINT OF CARE TEST Abimael MAHER Performing Organization Address [facility] Co de Phone Number [facility] [place] [address] * POC, GLUCOSE (06/20/2024 3:39 PM EST) Glucometer, POC 124 65 - 199 mg/dL 06/20/2024 3:40 PM EST [facility] Comment:Supplemental ranges: <140 mg/dL before meals <180 mg/dL all other times of the day. Blood CAPILLARY BLOOD / Unknown 06/20/2024 3:39 PM EST 06/20/2024 3:40 PM EST Bobby Loja MD POINT OF CARE TEST O NIKA Performing Organization Address [facility] Co de Phone Number [facility] [place] [address] * POC, GLUCOSE (06/20/2024 12:02 PM EST) Glucometer, POC 173 65 - 199 mg/dL 06/20/2024 12:03 PM EST [facility] Comment:Supplemental ranges: <140 mg/dL before meals <180 mg/dL all other times of the day. Blood CAPILLARY BLOOD / Unknown 06/20/2024 12:02 PM EST 06/20/2024 12:03 PM EST Narrative Authorizing Provider Result Saranya Loja MD POINT OF CARE TEST O NIKA Performing Organization Address [facility] Co de Phone Number [facility] [place] [address] * POC, GLUCOSE (06/20/2024 7:10 AM EST) Glucometer, POC 130 65 - 199 mg/dL 06/20/2024 7:11 AM EST [facility] Comment:Supplemental ranges: <140 mg/dL before meals <180 mg/dL all other times of the day. Blood CAPILLARY BLOOD / Unknown 06/20/2024 7:10 AM EST 06/20/2024 7:11 AM EST Narrative Authorizing Provider Result Saranya Loja MD POINT OF CARE TEST Abimael MAHER Performing Organization Address [facility] Co de Phone Number [facility] [place] [address] * (ABNORMAL) Basic Metabolic Panel (06/20/2024 2:28 AM EST) Glucose 79 65 - 199 mg/dL 06/20/2024 3:06 AM [facility] Comment:Glucose Concentratio n >=200 mg/dL plus symptoms is consistent with Diabetes Mellitus. Blood Urea Nitrogen 38(H) 10 - 20 mg/dL 06/20/2024 3:06 AM [facility] Creatinine 1.39 0.80 - 1.50 mg/dL 06/20/2024 3:06 AM [facility] Sodium 137 135 - 145 mMol/L 06/20/2024 3:06 AM [facility] Potassium 3.6 3.5 - 5.0 mMol/L 06/20/2024 3:06 AM [facility] Chloride 100 98 - 107 mMol/L 06/20/2024 3:06 AM EST [facility] Carbon Dioxide 29 22 - 31 mMol/L 06/20/2024 3:06 AM [facility] Anion Gap 8 5 - 15 mMol/L 06/20/2024 3:06 AM [facility] Calcium 8.4(L) 8.5 - 10.5 mg/dL 06/20/2024 3:06 AM [facility] Est Glomerular Filtration Rate - Male 56 mL/min/1. 73 m?? 06/20/2024 3:06 AM EST [facility] Comment: This patient's estimated GFR [...] EST Keila Hanley APRN CHEMISTRY ORDERABL ES [facility] [place] [address] * POC, GLUCOSE (06/20/2024 12:32 AM EST) Glucometer, POC 86 65 - 199 mg/dL 06/20/2024 12:32 AM EST [facility] Comment:Supplemental ranges: <140 mg/dL before meals <180 mg/dL all other times of the day. Blood CAPILLARY BLOOD / Unknown 06/20/2024 12:32 AM EST 06/20/2024 12:32 AM EST Bobby Loja MD POINT OF CARE TEST O RALPHERAPIETER Performing Organization Address [facility] Co de Phone Number [facility] [place] [address] * (ABNORMAL) POC, GLUCOSE (06/20/2024 12:02 AM EST) Glucometer, POC 59(L) 65 - 199 mg/dL 06/20/2024 12:02 AM EST [facility] Comment:Supplemental ranges: <140 mg/dL before meals <180 mg/dL all other times of the day. Blood CAPILLARY BLOOD / Unknown 06/20/2024 12:02 AM EST 06/20/2024 12:03 AM EST Bobby Loja MD POINT OF CARE TEST O NIKA Performing Organization Address [facility] Co de Phone Number [facility] [place] [address] * POC, GLUCOSE (06/19/2024 8:15 PM EST) Glucometer, POC 131 65 - 199 mg/dL 06/19/2024 8:15 PM EST [facility] Comment:Supplemental ranges: <140 mg/dL before meals <180 mg/dL all other times of the day. Blood CAPILLARY BLOOD / Unknown 06/19/2024 8:15 PM EST 06/19/2024 8:15 PM EST Bobby Loja MD POINT OF CARE TEST O NIKA Performing Organization Address [facility] Co de Phone Number [facility] [place] [address] * POC, GLUCOSE (06/19/2024 6:01 PM EST) Glucometer, POC 129 65 - 199 mg/dL 06/19/2024 6:01 PM EST [facility] Comment:Supplemental ranges: <140 mg/dL before meals <180 mg/dL all other times of the day. Blood CAPILLARY BLOOD / Unknown 06/19/2024 6:01 PM EST 06/19/2024 6:02 PM EST Bobby Loja MD POINT OF CARE TEST O NIKA Performing Organization Address [facility] Co de Phone Number [facility] [place] [address] * POC, GLUCOSE (06/19/2024 4:51 PM EST) Glucometer, POC 155 65 - 199 mg/dL 06/19/2024 4:51 PM EST [facility] Comment:Supplemental ranges: <140 mg/dL before meals <180 mg/dL all other times of the day. Blood CAPILLARY BLOOD / Unknown 06/19/2024 4:51 PM EST 06/19/2024 4:51 PM EST Bobby Loja MD POINT OF CARE TEST Abimael MAHER Performing Organization Address [facility] de Phone Number [facility] [place] [address] * POC, GLUCOSE (06/19/2024 12:37 PM EST) Glucometer, POC 136 65 - 199 mg/dL 06/19/2024 12:37 PM EST [facility] Comment:Supplemental ranges: <140 mg/dL before meals <180 mg/dL all other times of the day. Blood CAPILLARY BLOOD / Unknown 06/19/2024 12:37 PM EST 06/19/2024 12:37 PM EST Bobby Loja MD POINT OF CARE TEST O NIKA Performing Organization Address [facility] Co de Phone Number [facility] [place] [address] * POC, GLUCOSE (06/19/2024 11:20 AM EST) Glucometer, POC 185 65 - 199 mg/dL 06/19/2024 11:21 AM EST [facility] Comment:Supplemental ranges: <140 mg/dL before meals <180 mg/dL all other times of the day. Blood CAPILLARY BLOOD / Unknown 06/19/2024 11:20 AM EST 06/19/2024 11:21 AM EST Bobby Loja MD POINT OF CARE TEST O NIKA Performing Organization Address [facility] Co de Phone Number [facility] [place] [address] * POC, GLUCOSE (06/19/2024 7:21 AM EST) Glucometer, POC 125 65 - 199 mg/dL 06/19/2024 7:21 AM EST [facility] Comment:Supplemental ranges: <140 mg/dL before meals <180 mg/dL all other times of the day. Blood CAPILLARY BLOOD / Unknown 06/19/2024 7:21 AM EST 06/19/2024 7:22 AM EST Bobby Loja MD POINT OF CARE TEST Abimael MAHER Performing Organization Address [facility] Co de Phone Number [facility] [place] [address] * POC, GLUCOSE (06/19/2024 4:52 AM EST) Glucometer, POC 125 65 - 199 mg/dL 06/19/2024 4:52 AM EST [facility] Comment:Supplemental ranges: <140 mg/dL before meals <180 mg/dL all other times of the day. Blood CAPILLARY BLOOD / Unknown 06/19/2024 4:52 AM EST 06/19/2024 4:52 AM EST Narrative Authorizing Provider Result Saranya Loja MD POINT OF CARE TEST O NIKA Performing Organization Address [place]/[facility] Co de Phone Number [facility] [place] [address] * POC, GLUCOSE (06/19/2024 4:13 AM EST) Glucometer, POC 67 65 - 199 mg/dL 06/19/2024 4:13 AM EST [facility] Comment:Supplemental ranges: <140 mg/dL before meals <180 mg/dL all other times of the day. Blood CAPILLARY BLOOD / Unknown 06/19/2024 4:13 AM EST 06/19/2024 4:13 AM EST Bobby Loja MD POINT OF CARE TEST O NIKA Performing Organization Address [facility] Co de Phone Number [facility] [place] [address] * (ABNORMAL) POC, GLUCOSE (06/19/2024 3:48 AM EST) Glucometer, POC 51(LLL) 65 - 199 mg/dL 06/19/2024 3:48 AM EST [facility] Comment:Supplemental ranges: <140 mg/dL before meals <180 mg/dL all other times of the day. Blood CAPILLARY BLOOD / Unknown 06/19/2024 3:48 AM EST 06/19/2024 3:48 AM EST Bobby Loja MD POINT OF CARE TEST O NIKA Performing Organization Address [place]/[facility] Co de Phone Number [facility] [place] [address] * (ABNORMAL) Basic Metabolic Panel (06/19/2024 3:44 AM EST) Glucose 53(LLL) 65 - 199 mg/dL 06/19/2024 4:48 AM EST [facility] Comment:Glucose Concentratio n >=200 mg/dL plus symptoms is consistent with Diabetes Mellitus. Blood Urea Nitrogen 42(H) 10 - 20 mg/dL 06/19/2024 4:48 AM EST [facility] Creatinine 1.29 0.80 - 1.50 mg/dL 06/19/2024 4:48 AM EST [facility] Sodium 138 135 - 145 mMol/L 06/19/2024 4:48 AM EST [facility] Potassium 3.6 3.5 - 5.0 mMol/L 06/19/2024 4:48 AM EST [facility] Chloride 100 98 - 107 mMol/L 06/19/2024 4:48 AM EST [facility] Carbon Dioxide 29 22 - 31 mMol/L 06/19/2024 4:48 AM [facility] Anion Gap 9 5 - 15 mMol/L 06/19/2024 4:48 AM [facility] Calcium 8.8 8.5 - 10.5 mg/dL 06/19/2024 4:48 AM EST [facility] Est Glomerular Filtration Rate - Male 61 mL/min/1. 73 m?? 06/19/2024 4:48 AM [facility] Comment: This [...] EST Keila Hanley APRN CHEMISTRY ORDERABL ES [facility] [place] [address] * POC, GLUCOSE (06/19/2024 12:23 AM EST) Glucometer, POC 82 65 - 199 mg/dL 06/19/2024 12:23 AM EST [facility] Comment:Supplemental ranges: <140 mg/dL before meals <180 mg/dL all other times of the day. Blood CAPILLARY BLOOD / Unknown 06/19/2024 12:23 AM EST 06/19/2024 12:23 AM EST Bobby Loja MD POINT OF CARE TEST O NIKA Performing Organization Address [facility] Co de Phone Number [facility] [place] [address] * POC, GLUCOSE (06/18/2024 11:08 PM EST) Glucometer, POC 73 65 - 199 mg/dL 06/18/2024 11:08 PM EST [facility] Comment:Supplemental ranges: <140 mg/dL before meals <180 mg/dL all other times of the day. Blood CAPILLARY BLOOD / Unknown 06/18/2024 11:08 PM EST 06/18/2024 11:08 PM EST Bobby Loja MD POINT OF CARE TEST Abimael MAHER Performing Organization Address [facility] de Phone Number [facility] [place] [address] * POC, GLUCOSE (06/18/2024 7:32 PM EST) Glucometer, POC 167 65 - 199 mg/dL 06/18/2024 7:32 PM EST [facility] Comment:Supplemental ranges: <140 mg/dL before meals <180 mg/dL all other times of the day. Blood CAPILLARY BLOOD / Unknown 06/18/2024 7:32 PM EST 06/18/2024 7:32 PM EST Bobby Loja MD POINT OF CARE TEST O NIKA Performing Organization Address [facility] Co de Phone Number [facility] [place] [address] * POC, GLUCOSE (06/18/2024 6:08 PM EST) Glucometer, POC 140 65 - 199 mg/dL 06/18/2024 6:09 PM EST [facility] Comment:Supplemental ranges: <140 mg/dL before meals <180 mg/dL all other times of the day. Blood CAPILLARY BLOOD / Unknown 06/18/2024 6:08 PM EST 06/18/2024 6:09 PM EST Narrative Authorizing Provider Result Saranya Loja MD POINT OF CARE TEST O NIKA Performing Organization Address [facility] Co de Phone Number [facility] [place] [address] * POC, GLUCOSE (06/18/2024 4:17 PM EST) Glucometer, POC 144 65 - 199 mg/dL 06/18/2024 4:17 PM EST [facility] Comment:Supplemental ranges: <140 mg/dL before meals <180 mg/dL all other times of the day. Blood CAPILLARY BLOOD / Unknown 06/18/2024 4:17 PM EST 06/18/2024 4:17 PM EST Narrative Authorizing Provider Result Saranya Loja MD POINT OF CARE TEST O NIKA Performing Organization Address [facility] Co de Phone Number [facility] [place] [address] * POC, GLUCOSE (06/18/2024 12:09 PM EST) Glucometer, POC 180 65 - 199 mg/dL 06/18/2024 12:09 PM EST [facility] Comment:Supplemental ranges: <140 mg/dL before meals <180 mg/dL all other times of the day. Blood CAPILLARY BLOOD / Unknown 06/18/2024 12:09 PM EST 06/18/2024 12:09 PM EST Narrative Authorizing Provider Result Saranya Loja MD POINT OF CARE TEST O NIKA Performing Organization Address [place]/[facility] Co de Phone Number [facility] [place] [address] * POC, GLUCOSE (06/18/2024 7:49 AM EST) Glucometer, POC 125 65 - 199 mg/dL 06/18/2024 7:50 AM EST [facility] Comment:Supplemental ranges: <140 mg/dL before meals <180 mg/dL all other times of the day. Blood CAPILLARY BLOOD / Unknown 06/18/2024 7:49 AM EST 06/18/2024 7:50 AM EST Bobby Loja MD POINT OF CARE TEST O NIKA [facility] [place] [address] * (ABNORMAL) Basic Metabolic Panel (06/18/2024 4:19 AM EST) Glucose 103 65 - 199 mg/dL 06/18/2024 5:03 AM [facility] Comment:Glucose Concentratio n >=200 mg/dL plus symptoms is consistent with Diabetes Mellitus. Blood Urea Nitrogen 43(H) 10 - 20 mg/dL 06/18/2024 5:03 AM [facility] Creatinine 1.45 0.80 - 1.50 mg/dL 06/18/2024 5:03 AM [facility] Sodium 131(L) 135 - 145 mMol/L 06/18/2024 5:03 AM [facility] Potassium 4.2 3.5 - 5.0 mMol/L 06/18/2024 5:03 AM [facility] Chloride 97(L) 98 - 107 mMol/L 06/18/2024 5:03 AM [facility] Carbon Dioxide 25 22 - 31 mMol/L 06/18/2024 5:03 AM [facility] Anion Gap 9 5 - 15 mMol/L 06/18/2024 5:03 AM [facility] Calcium 8.5 8.5 - 10.5 mg/dL 06/18/2024 5:03 AM [facility] Est Glomerular Filtration Rate - Male 53 mL/min/1. 73 m?? 06/18/2024 5:03 AM [facility] Comment: This [...] APRN CHEMISTRY ORDERABL ES Performing Organization Address [facility] Co de Phone Number [facility] [place] [address] * POC, GLUCOSE (06/18/2024 3:50 AM EST) Glucometer, POC 99 65 - 199 mg/dL 06/18/2024 3:51 AM EST [facility] Comment:Supplemental ranges: <140 mg/dL before meals <180 mg/dL all other times of the day. Blood CAPILLARY BLOOD / Unknown 06/18/2024 3:50 AM EST 06/18/2024 3:51 AM EST Bobby Loja MD POINT OF CARE TEST O RDERABLES [facility] [place] [address] * POC, GLUCOSE (06/17/2024 11:10 PM EST) Glucometer, POC 92 65 - 199 mg/dL 06/17/2024 11:10 PM EST [facility] Comment:Supplemental ranges: <140 mg/dL before meals <180 mg/dL all other times of the day. Blood CAPILLARY BLOOD / Unknown 06/17/2024 11:10 PM EST 06/17/2024 11:10 PM EST Bobby Loja MD POINT OF CARE TEST O NIKA Performing Organization Address [facility] Co de Phone Number [facility] [place] [address] * POC, GLUCOSE (06/17/2024 7:54 PM EST) Glucometer, POC 126 65 - 199 mg/dL 06/17/2024 7:54 PM EST [facility] Comment:Supplemental ranges: <140 mg/dL before meals <180 mg/dL all other times of the day. Blood CAPILLARY BLOOD / Unknown 06/17/2024 7:54 PM EST 06/17/2024 7:54 PM EST Bobby Loja MD POINT OF CARE TEST O NIKA Performing Organization Address [facility] de Phone Number [facility] [place] [address] * POC, GLUCOSE (06/17/2024 4:07 PM EST) Glucometer, POC 141 65 - 199 mg/dL 06/17/2024 4:12 PM EST [facility] Comment:Supplemental ranges: <140 mg/dL before meals <180 mg/dL all other times of the day. Blood CAPILLARY BLOOD / Unknown 06/17/2024 4:07 PM EST 06/17/2024 4:12 PM EST Bobby Loja MD POINT OF CARE TEST O NIKA Performing Organization Address [facility] Co de Phone Number [facility] [place] [address] * XR Chest PA & Lateral (Generic) (06/17/2024 1:46 PM EST) WORKSTATION ID [id number] RAD Anatomical Region Laterality Modality Chest N/A [...] who have questions please contact the health property caretaker that requested your imaging first. ? [...] patients who have questions please contactthe health property caretaker that requested your imaging first. Keilamariangel Hanley SPECIMEN COLLECTOR IMG DX ORDERABLES * (ABNORMAL) POC, GLUCOSE (06/17/2024 11:04 AM EST) Glucometer, POC 245(H) 65 - 199 mg/dL 06/17/2024 11:04 AM EST [facility] Comment:Supplemental ranges: <140 mg/dL before meals <180 mg/dL all other times of the day. Blood CAPILLARY BLOOD / Unknown 06/17/2024 11:04 AM EST 06/17/2024 11:04 AM EST Bobby Loja MD POINT OF CARE TEST O NIKA Performing Organization Address City/[facility]/ZIP Co de Phone Number [facility] [place] [address] * POC, GLUCOSE (06/17/2024 7:49 AM EST) Glucometer, POC 141 65 - 199 mg/dL 06/17/2024 7:55 AM EST [facility] Comment:Supplemental ranges: <140 mg/dL before meals <180 mg/dL all other times of the day. Blood CAPILLARY BLOOD / Unknown 06/17/2024 7:49 AM EST 06/17/2024 7:55 AM EST Bobby Loja MD POINT OF CARE TEST O NIKA [facility] [place] [address] * POC, GLUCOSE (06/17/2024 4:16 AM EST) Glucometer, POC 139 65 - 199 mg/dL 06/17/2024 4:16 AM EST [facility] Comment:Supplemental ranges: <140 mg/dL before meals <180 mg/dL all other times of the day. Blood CAPILLARY BLOOD / Unknown 06/17/2024 4:16 AM EST 06/17/2024 4:17 AM EST Bobby Loja MD POINT OF CARE TEST O RDERABLES [facility] [place] [place] [address] * Lactate, Whole Blood (06/17/2024 2:39 AM EST) [facility] Lactate, Whole Blood 1.3 0.5 - 2.2 mmol/L 06/17/2024 2:46 AM EST [facility] Blood VENOUS BLOOD SPECIMEN / Unknown Venipuncture / Unknown 06/17/2024 2:39 AM EST 06/17/2024 2:43 AM EST Bobby Loja MD CHEMISTRY ORDERABLES Performing Organization Address City/[facility]/ZIP Co de Phone Number [facility] [place] [address] * (ABNORMAL) Hemogram (06/17/2024 2:39 AM EST) [facility] White Blood Cell 13.53(H) 4.00 - 9.50 x10(3)/mc L 06/17/2024 2:53 AM EST [facility] Red Blood Cell 3.55(L) 4.58 - 5.54 x10(6)/mc L 06/17/2024 2:53 AM EST [facility] Hemoglobin 10.8(L) 13.7 - 16.5 g/dL 06/17/2024 2:53 AM [facility] Hematocrit 33.0(L) 40.5 - 48.5 % 06/17/2024 2:53 AM EST [facility] Mean Cell Volume 93.0 82.9 - 93.1 fL 06/17/2024 2:53 AM [facility] Mean Cell Hemoglobin 30.4 27.5 - 32.1 pg 06/17/2024 2:53 AM [facility] Mean Cell Hemoglobin Concentration 32.7 32.0 - 35.7 g/dL 06/17/2024 2:53 AM [facility] Platelet 101(L) 145 - 357 x10(3)/mc L 06/17/2024 2:53 AM [facility] Mean Platelet Volume 10.4 7.6 - 12.9 fL 06/17/2024 2:53 AM [facility] RDW Standard Deviation 48.4(H) 36.0 - 45.0 fL 06/17/2024 2:53 AM [facility] RDW coefficient of variation 14.1(H) 11.4 - 13.8 % 06/17/2024 2:53 AM [facility] NRBC% auto 0.0 % 06/17/2024 2:53 AM [facility] NRBC Absolute <0.01 <0.01 x10(3)/mc L 06/17/2024 2:53 AM [facility] Blood VENOUS BLOOD SPECIMEN / Unknown Venipuncture / Unknown 06/17/2024 2:39 AM EST 06/17/2024 2:43 AM EST Bobby Loja MD HEMATOLOGY ORDERABLE S [facility] [place] [address] * (ABNORMAL) Basic Metabolic Panel (06/17/2024 2:39 AM EST) Glucose 149 65 - 199 mg/dL 06/17/2024 3:14 AM EST [facility] Comment:Glucose Concentratio n >=200 mg/dL plus symptoms is consistent with Diabetes Mellitus. Blood Urea Nitrogen 42(H) 10 - 20 mg/dL 06/17/2024 3:14 AM [facility] Creatinine 1.52(H) 0.80 - 1.50 mg/dL 06/17/2024 3:14 AM [facility] Sodium 133(L) 135 - 145 mMol/L 06/17/2024 3:14 AM [facility] Potassium 4.5 3.5 - 5.0 mMol/L 06/17/2024 3:14 AM [facility] Chloride 101 98 - 107 mMol/L 06/17/2024 3:14 AM [facility] Carbon Dioxide 23 22 - 31 mMol/L 06/17/2024 3:14 AM [facility] Anion Gap 9 5 - 15 mMol/L 06/17/2024 3:14 AM [facility] Calcium 8.8 8.5 - 10.5 mg/dL 06/17/2024 3:14 AM [facility] Est Glomerular Filtration Rate - Male 50 mL/min/1. 73 m?? 06/17/2024 3:14 AM [facility] Comment: This [...] AM EST Bobby Loja MD CHEMISTRY ORDERABLES [facility] [place] [address] * (ABNORMAL) POC, GLUCOSE (06/17/2024 12:13 AM EST) Glucometer, POC 211(H) 65 - 199 mg/dL 06/17/2024 12:13 AM EST [facility] Comment:Supplemental ranges: <140 mg/dL before meals <180 mg/dL all other times of the day. Blood CAPILLARY BLOOD / Unknown 06/17/2024 12:13 AM EST 06/17/2024 12:14 AM EST Bobby Loja MD POINT OF CARE TEST O NIKA Performing Organization Address [facility] Co de Phone Number [facility] [place] [address] * (ABNORMAL) POC, GLUCOSE (06/16/2024 7:22 PM EST) Glucometer, POC 229(H) 65 - 199 mg/dL 06/16/2024 7:22 PM EST [facility] Comment:Supplemental ranges: <140 mg/dL before meals <180 mg/dL all other times of the day. Blood CAPILLARY BLOOD / Unknown 06/16/2024 7:22 PM EST 06/16/2024 7:22 PM EST Bobby Loja MD POINT OF CARE TEST Abimael MAHER Performing Organization Address City/[facility] Co de Phone Number [facility] [place] [address] * (ABNORMAL) POC, GLUCOSE (06/16/2024 6:14 PM EST) Glucometer, POC 220(H) 65 - 199 mg/dL 06/16/2024 6:14 PM EST [facility] Comment:Supplemental ranges: <140 mg/dL before meals <180 mg/dL all other times of the day. Blood CAPILLARY BLOOD / Unknown 06/16/2024 6:14 PM EST 06/16/2024 6:14 PM EST Bobby Loja MD POINT OF CARE TEST O RDBECKIE Performing Organization Address [facility] Co de Phone Number [facility] [place] [address] * Lactate, Whole Blood (06/16/2024 6:14 PM EST) Lactate, Whole Blood 1.8 0.5 - 2.2 mmol/L 06/16/2024 6:27 PM EST [facility] Blood VENOUS BLOOD SPECIMEN / Unknown Venipuncture / Unknown 06/16/2024 6:14 PM EST 06/16/2024 6:25 PM EST Bobby Loja MD CHEMISTRY ORDERABLES Performing Organization Address [facility] Co de Phone Number [facility] [place] [address] * (ABNORMAL) POC, GLUCOSE (06/16/2024 4:14 PM EST) Glucometer, POC 240(H) 65 - 199 mg/dL 06/16/2024 4:14 PM EST [facility] Comment:Supplemental ranges: <140 mg/dL before meals <180 mg/dL all other times of the day. Blood CAPILLARY BLOOD / Unknown 06/16/2024 4:14 PM EST 06/16/2024 4:14 PM EST Bobby Loaj MD POINT OF CARE TEST O NIKA Performing Organization Address [facility] Co de Phone Number [facility] [place] [address] * POC, GLUCOSE (06/16/2024 11:49 AM EST) Glucometer, POC 199 65 - 199 mg/dL 06/16/2024 11:49 AM EST [facility] Comment:Supplemental ranges: <140 mg/dL before meals <180 mg/dL all other times of the day. Blood CAPILLARY BLOOD / Unknown 06/16/2024 11:49 AM EST 06/16/2024 11:49 AM EST Bobby Loja MD POINT OF CARE TEST O RDERABLES [facility] [place] [address] * (ABNORMAL) Hemogram (06/16/2024 11:44 AM EST) White Blood Cell 17.91(H) 4.00 - 9.50 x10(3)/mc L 06/16/2024 12:25 PM [facility] Red Blood Cell 3.47(L) 4.58 - 5.54 x10(6)/mc L 06/16/2024 12:25 PM [facility] Hemoglobin 10.5(L) 13.7 - 16.5 g/dL 06/16/2024 12:25 PM [facility] Hematocrit 33.1(L) 40.5 - 48.5 % 06/16/2024 12:25 PM [facility] Mean Cell Volume 95.4(H) 82.9 - 93.1 fL 06/16/2024 12:25 PM [facility] Mean Cell Hemoglobin 30.3 27.5 - 32.1 pg 06/16/2024 12:25 PM [facility] Mean Cell Hemoglobin Concentration 31.7(L) 32.0 - 35.7 g/dL 06/16/2024 12:25 PM [facility] Platelet 101(L) 145 - 357 x10(3)/mc L 06/16/2024 12:25 PM [facility] Mean Platelet Volume 10.6 7.6 - 12.9 fL 06/16/2024 12:25 PM [facility] RDW Standard Deviation 49.5(H) 36.0 - 45.0 fL 06/16/2024 12:25 PM [facility] RDW coefficient of variation 14.2(H) 11.4 - 13.8 % 06/16/2024 12:25 PM [facility] NRBC% auto 0.0 % 06/16/2024 12:25 PM EST [facility] NRBC Absolute <0.01 <0.01 x10(3)/mc L 06/16/2024 12:25 PM EST [facility] Blood VENOUS BLOOD SPECIMEN / Unknown Venipuncture / Unknown 06/16/2024 11:44 AM EST 06/16/2024 12:03 PM EST Bobby Loja MD HEMATOLOGY ORDERABLE S [facility] [place] [address] * Lactate, Whole Blood (06/16/2024 9:02 AM EST) Lactate, Whole Blood 1.8 0.5 - 2.2 mmol/L 06/16/2024 9:19 AM EST [facility] Blood VENOUS BLOOD SPECIMEN / Unknown Venipuncture / Unknown 06/16/2024 9:02 AM EST 06/16/2024 9:17 AM EST Narrative Authorizing Provider Result Saranya Loja MD CHEMISTRY ORDERABLES Performing Organization Address [facility]/ZIP Co de Phone Number [facility] [place] [address] * POC, GLUCOSE (06/16/2024 7:44 AM EST) Glucometer, POC 129 65 - 199 mg/dL 06/16/2024 7:44 AM EST [facility] Comment:Supplemental ranges: <140 mg/dL before meals <180 mg/dL all other times of the day. Blood CAPILLARY BLOOD / Unknown 06/16/2024 7:44 AM EST 06/16/2024 7:44 AM EST Narrative Authorizing Provider Result Saranya Loja MD POINT OF CARE TEST O RDERABLES Performing Organization Address City/[facility]/ZIP Co de Phone Number [facility] [place] [address] * POC, GLUCOSE (06/16/2024 4:01 AM EST) Glucometer, POC 158 65 - 199 mg/dL 06/16/2024 4:01 AM EST [facility] Comment:Supplemental ranges: <140 mg/dL before meals <180 mg/dL all other times of the day. Blood CAPILLARY BLOOD / Unknown 06/16/2024 4:01 AM EST 06/16/2024 4:01 AM EST Bobby Loja MD POINT OF CARE TEST O RDERABLES [facility] [place] [address] * (ABNORMAL) Basic Metabolic Panel (06/16/2024 2:23 AM EST) Glucose 177 65 - 199 mg/dL 06/16/2024 3:13 AM [facility] Comment:Glucose Concentratio n >=200 mg/dL plus symptoms is consistent with Diabetes Mellitus. Blood Urea Nitrogen 37(H) 10 - 20 mg/dL 06/16/2024 3:13 AM [facility] Creatinine 2.10(H) 0.80 - 1.50 mg/dL 06/16/2024 3:13 AM [facility] Sodium 132(L) 135 - 145 mMol/L 06/16/2024 3:13 AM [facility] Potassium 4.5 3.5 - 5.0 mMol/L 06/16/2024 3:13 AM [facility] Chloride 99 98 - 107 mMol/L 06/16/2024 3:13 AM [facility] Carbon Dioxide 22 22 - 31 mMol/L 06/16/2024 3:13 AM [facility] Anion Gap 11 5 - 15 mMol/L 06/16/2024 3:13 AM [facility] Calcium 9.0 8.5 - 10.5 mg/dL 06/16/2024 3:13 AM [facility] Est Glomerular Filtration Rate - Male 34 mL/min/1. 73 m?? 06/16/2024 3:13 AM EST [facility] Comment: This patient's estimated GFR [...] ORDERABLES Performing Organization Address [facility]/ZIP Co de Phone Number [facility] [place] [address] * POC, GLUCOSE (06/16/2024 2:21 AM EST) Glucometer, POC 176 65 - 199 mg/dL 06/16/2024 2:31 AM EST [facility] Comment:Supplemental ranges: <140 mg/dL before meals <180 mg/dL all other times of the day. Blood CAPILLARY BLOOD / Unknown 06/16/2024 2:21 AM EST 06/16/2024 2:31 AM EST Bobby Loja MD POINT OF CARE TEST O RDERABLES Performing Organization Address City/[facility]/ZIP Co de Phone Number [facility] [place] [address] * (ABNORMAL) POC, GLUCOSE (06/16/2024 12:09 AM EST) Glucometer, POC 222(H) 65 - 199 mg/dL 06/16/2024 12:09 AM EST [facility] Comment:Supplemental ranges: <140 mg/dL before meals <180 mg/dL all other times of the day. Blood CAPILLARY BLOOD / Unknown 06/16/2024 12:09 AM EST 06/16/2024 12:09 AM EST Narrative Authorizing Provider Result Saranya Loja MD POINT OF CARE TEST O NIKA Performing Organization Address City/[facility]/ZIP Co de Phone Number [facility] [place] [address] * (ABNORMAL) POC, GLUCOSE (06/15/2024 10:07 PM EST) Glucometer, POC 320(H) 65 - 199 mg/dL 06/15/2024 10:07 PM EST [facility] Comment:Supplemental ranges: <140 mg/dL before meals <180 mg/dL all other times of the day. Blood CAPILLARY BLOOD / Unknown 06/15/2024 10:07 PM EST 06/15/2024 10:07 PM EST Bobby Loja MD POINT OF CARE TEST O NIKA Performing Organization Address [facility]/ZIP Co de Phone Number [facility] [place] [address] * (ABNORMAL) POC, GLUCOSE (06/15/2024 7:56 PM EST) Glucometer, POC 304(H) 65 - 199 mg/dL 06/15/2024 7:56 PM EST [facility] Comment:Supplemental ranges: <140 mg/dL before meals <180 mg/dL all other times of the day. Blood CAPILLARY BLOOD / Unknown 06/15/2024 7:56 PM EST 06/15/2024 7:56 PM EST Narrative Authorizing Provider Result Saranya Loja MD POINT OF CARE TEST O NIKA [facility] [place] [address] * (ABNORMAL) POC, GLUCOSE (06/15/2024 7:52 PM EST) Glucometer, POC 288(H) 65 - 199 mg/dL 06/15/2024 7:52 PM EST [facility] Comment:Supplemental ranges: <140 mg/dL before meals <180 mg/dL all other times of the day. Blood CAPILLARY BLOOD / Unknown 06/15/2024 7:52 PM EST 06/15/2024 7:52 PM EST Bobby Loja MD POINT OF CARE TEST O NIKA [facility] [place] [address] * POC, GLUCOSE (06/15/2024 4:21 PM EST) Glucometer, POC 192 65 - 199 mg/dL 06/15/2024 4:21 PM EST [facility] Comment:Supplemental ranges: <140 mg/dL before meals <180 mg/dL all other times of the day. Blood CAPILLARY BLOOD / Unknown 06/15/2024 4:21 PM EST 06/15/2024 4:21 PM EST Bobby Loja MD POINT OF CARE TEST O NIKA Performing Organization Address [facility]/ZIP Co de Phone Number [facility] [place] [address] * POC, GLUCOSE (06/15/2024 3:27 PM EST) Glucometer, POC 155 65 - 199 mg/dL 06/15/2024 3:27 PM EST [facility] Comment:Supplemental ranges: <140 mg/dL before meals <180 mg/dL all other times of the day. Blood CAPILLARY BLOOD / Unknown 06/15/2024 3:27 PM EST 06/15/2024 3:27 PM EST Bobby Loja MD POINT OF CARE TEST O NIKA [facility] [place] [address] * POC, GLUCOSE (06/15/2024 2:23 PM EST) Glucometer, POC 160 65 - 199 mg/dL 06/15/2024 2:23 PM EST [facility] Comment:Supplemental ranges: <140 mg/dL before meals <180 mg/dL all other times of the day. Blood CAPILLARY BLOOD / Unknown 06/15/2024 2:23 PM EST 06/15/2024 2:23 PM EST Bobby Loja MD POINT OF CARE TEST O NIKA Performing Organization Address City/[facility]/ZIP Co de Phone Number [facility] [place] [address] * POC, GLUCOSE (06/15/2024 1:26 PM EST) Glucometer, POC 167 65 - 199 mg/dL 06/15/2024 1:26 PM EST [facility] Comment:Supplemental ranges: <140 mg/dL before meals <180 mg/dL all other times of the day. Blood CAPILLARY BLOOD / Unknown 06/15/2024 1:26 PM EST 06/15/2024 1:26 PM EST Bobby Loja MD POINT OF CARE TEST O NIKA Performing Organization Address City/[facility]/ZIP Co de Phone Number [facility] [place] [address] * (ABNORMAL) POC, GLUCOSE (06/15/2024 12:55 PM EST) Glucometer, POC 210(H) 65 - 199 mg/dL 06/15/2024 12:55 PM EST [facility] Comment:Supplemental ranges: <140 mg/dL before meals <180 mg/dL all other times of the day. Blood CAPILLARY BLOOD / Unknown 06/15/2024 12:55 PM EST 06/15/2024 12:55 PM EST Bobby Loja MD POINT OF CARE TEST O NIKA Performing Organization Address City/[facility]/ZIP Co de Phone Number [facility] [place] [address] * (ABNORMAL) POC, GLUCOSE (06/15/2024 11:29 AM EST) Glucometer, POC 220(H) 65 - 199 mg/dL 06/15/2024 11:29 AM EST [facility] Comment:Supplemental ranges: <140 mg/dL before meals <180 mg/dL all other times of the day. Blood CAPILLARY BLOOD / Unknown 06/15/2024 11:29 AM EST 06/15/2024 11:29 AM EST Bobby Loja MD POINT OF CARE TEST O NIKA Performing Organization Address [facility]/ZIP Co de Phone Number [facility] [place] [address] * (ABNORMAL) Basic Metabolic Panel (06/15/2024 11:23 AM EST) Glucose 215(H) 65 - 199 mg/dL 06/15/2024 12:08 PM EST [facility] Comment:Glucose Concentratio n >=200 mg/dL plus symptoms is consistent with Diabetes Mellitus. Blood Urea Nitrogen 24(H) 10 - 20 mg/dL 06/15/2024 12:08 PM [facility] Creatinine 1.54(H) 0.80 - 1.50 mg/dL 06/15/2024 12:08 PM [facility] Sodium 135 135 - 145 mMol/L 06/15/2024 12:08 PM [facility] Potassium 4.5 3.5 - 5.0 mMol/L 06/15/2024 12:08 PM [facility] Chloride 105 98 - 107 mMol/L 06/15/2024 12:08 PM [facility] Carbon Dioxide 19(L) 22 - 31 mMol/L 06/15/2024 12:08 PM [facility] Anion Gap 11 5 - 15 mMol/L 06/15/2024 12:08 PM EST [facility] Calcium 8.3(L) 8.5 - 10.5 mg/dL 06/15/2024 12:08 PM EST [facility] Est Glomerular Filtration Rate - Male 49 mL/min/1. 73 m?? 06/15/2024 12:08 PM EST [facility] Comment: This patient's estimated GFR [...] Performing Organization Address City/[facility]/ZIP Co de Phone Number [facility] [place] [address] * POC, GLUCOSE (06/15/2024 10:29 AM EST) [facility] Signature Glucometer, POC 189 65 - 199 mg/dL 06/15/2024 10:29 AM EST [facility] Comment:Supplemental ranges: <140 mg/dL before meals <180 mg/dL all other times of the day. Blood CAPILLARY BLOOD / Unknown 06/15/2024 10:29 AM EST 06/15/2024 10:29 AM EST Bobby Loja MD POINT OF CARE TEST O RDERABLES [facility] [place] [address] * POC, GLUCOSE (06/15/2024 9:45 AM EST) Glucometer, POC 178 65 - 199 mg/dL 06/15/2024 9:45 AM EST [facility] Comment:Supplemental ranges: <140 mg/dL before meals <180 mg/dL all other times of the day. Blood CAPILLARY BLOOD / Unknown 06/15/2024 9:45 AM EST 06/15/2024 9:45 AM EST Bobby Loja MD POINT OF CARE TEST O NIKA Performing Organization Address City/[facility]/ZIP Co de Phone Number [facility] [place] [address] * (ABNORMAL) Cooximetry, POC (06/15/2024 9:31 AM EST) pO2, Coox 38 mmHg 06/15/2024 9:34 AM [facility] Hemoglobin, Coox 12.9(L) 13.7 - 16.5 g/dL 06/15/2024 9:34 AM [facility] Oxyhemoglobin, Coox 72.1 % 06/15/2024 9:34 AM [facility] Carboxyhemoglo bin, Coox 0.9 % 06/15/2024 9:34 AM [facility] Comment: Nonsmokers: 0.5-1.5% COHB ?? Smokers: Variable ??but usually less than 10% ?? Toxic: 20-30% COHB ?? Lethal: Greater than 60% COHB Methemoglobin, Coox 0.3 <=1.5 % 06/15/2024 9:34 AM [facility] Blood (Mixed Venous) 06/15/2024 9:31 AM EST 06/15/2024 9:34 AM EST Bobby Loja MD POINT OF CARE TEST O NIKA [facility] [place] [address] * Cooximetry, POC (06/15/2024 9:22 AM EST) pO2, Coox 30 mmHg 06/15/2024 9:25 AM [facility] Hemoglobin, Coox 06/15/2024 9:25 AM [facility] Comment:QUES Oxyhemoglobin, Coox 06/15/2024 9:25 AM [facility] Comment:QUES Carboxyhemoglo bin, Coox 06/15/2024 9:25 AM [facility] Comment:QUES Methemoglobin, Coox 06/15/2024 9:25 AM [facility] Comment:QUES Blood (Mixed Venous) 06/15/2024 9:22 AM EST 06/15/2024 9:25 AM EST Bobby Loja MD POINT OF CARE TEST O RDERABLES [facility] [place] [address] * (ABNORMAL) Blood Gas, Arterial POC (06/15/2024 9:19 AM EST) pH, Arterial 7.31(L) 7.35 - 7.45 06/15/2024 9:21 AM [facility] PCO2, Arterial 36 35 - 45 mmHg 06/15/2024 9:21 AM [facility] PO2, Arterial 94 85 - 104 mmHg 06/15/2024 9:21 AM [facility] Bicarbonate, Arterial 18.0(L) 20.0 - 26.0 mmol/L 06/15/2024 9:21 AM [facility] Base Excess, Arterial -8.2(L) -3.0 - 3.0 mmol/L 06/15/2024 9:21 AM [facility] Hemoglobin, Arterial 12.7(L) 13.7 - 16.5 g/dL 06/15/2024 9:21 AM [facility] Oxyhemoglobin, Arterial 96.0 94.0 - 97.0 % 06/15/2024 9:21 AM [facility] Carboxyhemoglobin , Arterial 0.5 % 06/15/2024 9:21 AM [facility] Comment: Nonsmokers: 0.5-1.5% COHB ?? Smokers: Variable ??but usually less than 10% ?? Toxic: 20-30% COHB ?? Lethal: Greater than 60% COHB Methemoglobin, Arterial 0.3 <=1.5 % 06/15/2024 9:21 AM [facility] Sodium, Arterial 136 135 - 145 mmol/L 06/15/2024 9:21 AM [facility] Potassium, Arterial 4.0 3.5 - 5.0 mmol/L 06/15/2024 9:21 AM [facility] Chloride, Arterial 106 98 - 107 mmol/L 06/15/2024 9:21 AM [facility] Lactate, Arterial 1.7 0.5 - 2.2 mmol/L 06/15/2024 9:21 AM [facility] Flow Rate 2.0 L/min 06/15/2024 9:21 AM [facility] IONIZED CALCIUM, ARTERIAL 1.14(L) 1.15 - 1.33 mmol/L 06/15/2024 9:21 AM [facility] Glucose, Arterial 193 65 - 199 mg/dL 06/15/2024 9:21 AM [facility] Comment:Glucose Concentratio n >=200 mg/dL plus symptoms is consistent with Diabetes Mellitus. Blood ARTERIAL BLOOD / Unknown 06/15/2024 9:19 AM EST 06/15/2024 9:20 AM EST Bobby Loja MD POINT OF CARE TEST O RDERABLES [facility] [place] [address] * (ABNORMAL) POC, GLUCOSE (06/15/2024 8:37 AM EST) Glucometer, POC 204(H) 65 - 199 mg/dL 06/15/2024 8:37 AM EST [facility] Comment:Supplemental ranges: <140 mg/dL before meals <180 mg/dL all other times of the day. Blood CAPILLARY BLOOD / Unknown 06/15/2024 8:37 AM EST 06/15/2024 8:37 AM EST Bobby Loja MD POINT OF CARE TEST O NIKA Performing Organization Address [facility] Co de Phone Number [facility] [place] [address] * POC, GLUCOSE (06/15/2024 7:37 AM EST) Glucometer, POC 199 65 - 199 mg/dL 06/15/2024 7:37 AM EST [facility] Comment:Supplemental ranges: <140 mg/dL before meals <180 mg/dL all other times of the day. Blood CAPILLARY BLOOD / Unknown 06/15/2024 7:37 AM EST 06/15/2024 7:38 AM EST Bobby Loja MD POINT OF CARE TEST Abimael MAHER Performing Organization Address [facility] Co de Phone Number [facility] [place] [address] * (ABNORMAL) POC, GLUCOSE (06/15/2024 7:01 AM EST) Glucometer, POC 203(H) 65 - 199 mg/dL 06/15/2024 7:01 AM EST [facility] Comment:Supplemental ranges: <140 mg/dL before meals <180 mg/dL all other times of the day. Blood CAPILLARY BLOOD / Unknown 06/15/2024 7:01 AM EST 06/15/2024 7:01 AM EST Bobby Loja MD POINT OF CARE TEST Abimael MAHER [facility] [place] [address] * XR Chest One View (06/15/2024 6:31 AM EST) WORKSTATION ID [id number] RAD Anatomical Region Laterality Modality Chest N/A [...] who have questions please contact the health property caretaker that requested your imaging first. ? [...] patients who have questions please contactthe health property caretaker that requested your imaging first. Bobby Loja MD IMG DX ORDERABLES * POC, GLUCOSE (06/15/2024 6:02 AM EST) Glucometer, POC 179 65 - 199 mg/dL 06/15/2024 6:02 AM EST [facility] Comment:Supplemental ranges: <140 mg/dL before meals <180 mg/dL all other times of the day. Blood CAPILLARY BLOOD / Unknown 06/15/2024 6:02 AM EST 06/15/2024 6:02 AM EST Narrative Authorizing Provider Result Saranya Loja MD POINT OF CARE TEST O NIKA Performing Organization Address City/[facility] Co de Phone Number [facility] [place] [address] * POC, GLUCOSE (06/15/2024 5:06 AM EST) Glucometer, POC 160 65 - 199 mg/dL 06/15/2024 5:06 AM EST [facility] Comment:Supplemental ranges: <140 mg/dL before meals <180 mg/dL all other times of the day. Blood CAPILLARY BLOOD / Unknown 06/15/2024 5:06 AM EST 06/15/2024 5:06 AM EST Narrative Authorizing Provider Result Saranya Loja MD POINT OF CARE TEST O RDERABLES Performing Organization Address City/[facility]/ZIP Co de Phone Number [facility] [place] [address] * POC, GLUCOSE (06/15/2024 4:05 AM EST) Glucometer, POC 160 65 - 199 mg/dL 06/15/2024 4:06 AM EST [facility] Comment:Supplemental ranges: <140 mg/dL before meals <180 mg/dL all other times of the day. Blood CAPILLARY BLOOD / Unknown 06/15/2024 4:05 AM EST 06/15/2024 4:06 AM EST Bobby Loja MD POINT OF CARE TEST O NIKA Performing Organization Address [facility] Co de Phone Number [facility] [place] [address] * POC, GLUCOSE (06/15/2024 3:07 AM EST) Glucometer, POC 151 65 - 199 mg/dL 06/15/2024 3:07 AM EST [facility] Comment:Supplemental ranges: <140 mg/dL before meals <180 mg/dL all other times of the day. Blood CAPILLARY BLOOD / Unknown 06/15/2024 3:07 AM EST 06/15/2024 3:07 AM EST Bobby Loja MD POINT OF CARE TEST O RDERAPIETER Performing Organization Address [facility]/ZIP Co de Phone Number [facility] [place] [address] * (ABNORMAL) Basic Metabolic Panel (06/15/2024 1:48 AM EST) Glucose 140 65 - 199 mg/dL 06/15/2024 2:38 AM EST [facility] Comment:Glucose Concentratio n >=200 mg/dL plus symptoms is consistent with Diabetes Mellitus. Blood Urea Nitrogen 21(H) 10 - 20 mg/dL 06/15/2024 2:38 AM EST [facility] Creatinine 1.27 0.80 - 1.50 mg/dL 06/15/2024 2:38 AM EST [facility] Sodium 140 135 - 145 mMol/L 06/15/2024 2:38 AM [facility] Potassium 4.4 3.5 - 5.0 mMol/L 06/15/2024 2:38 AM [facility] Chloride 108(H) 98 - 107 mMol/L 06/15/2024 2:38 AM [facility] Carbon Dioxide 23 22 - 31 mMol/L 06/15/2024 2:38 AM [facility] Anion Gap 9 5 - 15 mMol/L 06/15/2024 2:38 AM [facility] Calcium 8.3(L) 8.5 - 10.5 mg/dL 06/15/2024 2:38 AM [facility] Est Glomerular Filtration Rate - Male 62 mL/min/1. 73 m?? 06/15/2024 2:38 AM [facility] Comment: This [...] AM EST Bobby Loja MD CHEMISTRY ORDERABLES [facility] [place] [address] * (ABNORMAL) CBC (with Diff) (06/15/2024 1:48 AM EST) White Blood Cell 11.71(H) 4.00 - 9.50 x10(3)/mc L 06/15/2024 2:13 AM [facility] Red Blood Cell 4.14(L) 4.58 - 5.54 x10(6)/mc L 06/15/2024 2:13 AM [facility] Hemoglobin 12.5(L) 13.7 - 16.5 g/dL 06/15/2024 2:13 AM [facility] Hematocrit 38.4(L) 40.5 - 48.5 % 06/15/2024 2:13 AM [facility] Mean Cell Volume 92.8 82.9 - 93.1 fL 06/15/2024 2:13 AM [facility] Mean Cell Hemoglobin 30.2 27.5 - 32.1 pg 06/15/2024 2:13 AM [facility] Mean Cell Hemoglobin Concentration 32.6 32.0 - 35.7 g/dL 06/15/2024 2:13 AM [facility] Platelet 101(L) 145 - 357 x10(3)/mc L 06/15/2024 2:13 AM [facility] Mean Platelet Volume 10.0 7.6 - 12.9 fL 06/15/2024 2:13 AM [facility] RDW Standard Deviation 48.8(H) 36.0 - 45.0 fL 06/15/2024 2:13 AM [facility] RDW coefficient of variation 14.2(H) 11.4 - 13.8 % 06/15/2024 2:13 AM [facility] NRBC% auto 0.0 % 06/15/2024 2:13 AM [facility] NRBC Absolute <0.01 <0.01 x10(3)/mc L 06/15/2024 2:13 AM [facility] Neutrophil % 79.7 % 06/15/2024 2:13 AM [facility] Neutrophil Absolute (ANC) - Automated 9.34(H) 1.70 - 6.10 x10(3)/mc L 06/15/2024 2:13 AM EST [facility] Lymph % 8.0 % 06/15/2024 2:13 AM EST [facility] Lymph Absolute 0.94 0.90 - 3.20 x10(3)/mc L 06/15/2024 2:13 AM EST [facility] Monocyte % 11.4 % 06/15/2024 2:13 AM EST [facility] Monocyte Absolute 1.33(H) 0.30 - 0.90 x10(3)/mc L 06/15/2024 2:13 AM EST [facility] Eos % 0.2 % 06/15/2024 2:13 AM EST [facility] Eos Absolute <0.04 0.00 - 0.40 x10(3)/mc L 06/15/2024 2:13 AM EST [facility] Basophil % 0.2 % 06/15/2024 2:13 AM EST [facility] Baso Absolute <0.04 0.00 - 0.10 x10(3)/mc L 06/15/2024 2:13 AM EST [facility] Immature Gran % 0.5 % 2:13 AM EST [facility] Immature Gran Absolute 0.06(H) 0.00 - 0.04 x10(3)/mc L 06/15/2024 2:13 AM EST [facility] Blood VENOUS BLOOD SPECIMEN / Unknown Venipuncture / Unknown 06/15/2024 1:48 AM EST 06/15/2024 1:52 AM EST Bobby Loja MD HEMATOLOGY ORDERABLE S [facility] [place] [address] * (ABNORMAL) Troponin - Single (06/15/2024 1:48 AM EST) Troponin-T, High Sensitivity 667(H) <=22 ng/L 06/15/2024 2:22 AM EST [facility] Comment: This patient's troponin T [...] troponin value can be found in the [facility] Laboratory Test Catalog Troponin - [email or web address].org/[email or web address]/[email or web address] Reference: Fourth Lena Definition of Myocardial Infarction. Journal of the [employer] 2018;72:6537-4579 Blood VENOUS BLOOD SPECIMEN / Unknown Venipuncture / Unknown 06/15/2024 1:48 AM EST 06/15/2024 1:52 AM EST Bobby Loja MD CHEMISTRY ORDERABLES [facility] [place] [address] * (ABNORMAL) Blood Gas, Arterial POC (06/15/2024 1:46 AM EST) Pathologist [facility] pH, Arterial 7.33(L) 7.35 - 7.45 06/15/2024 1:47 AM EST [facility] PCO2, Arterial 40 35 - 45 mmHg 06/15/2024 1:47 AM EST [facility] PO2, Arterial 131(H) 85 - 104 mmHg 06/15/2024 1:47 AM [facility] Bicarbonate, Arterial 20.7 20.0 - 26.0 mmol/L 06/15/2024 1:47 AM [facility] Base Excess, Arterial -5.2(L) -3.0 - 3.0 mmol/L 06/15/2024 1:47 AM [facility] Hemoglobin, Arterial 13.4(L) 13.7 - 16.5 g/dL 06/15/2024 1:47 AM [facility] Oxyhemoglobin, Arterial 97.9(H) 94.0 - 97.0 % 06/15/2024 1:47 AM [facility] Carboxyhemoglobin , Arterial 0.5 % 06/15/2024 1:47 AM [facility] Comment: Nonsmokers: 0.5-1.5% COHB ?? Smokers: Variable ??but usually less than 10% ?? Toxic: 20-30% COHB ?? Lethal: Greater than 60% COHB Methemoglobin, Arterial 0.3 <=1.5 % 06/15/2024 1:47 AM [facility] Sodium, Arterial 139 135 - 145 mmol/L 06/15/2024 1:47 AM [facility] Potassium, Arterial 4.2 3.5 - 5.0 mmol/L 06/15/2024 1:47 AM [facility] Chloride, Arterial 107 98 - 107 mmol/L 06/15/2024 1:47 AM [facility] Lactate, Arterial 1.8 0.5 - 2.2 mmol/L 06/15/2024 1:47 AM [facility] Fraction of Inspired Oxygen 40 % 06/15/2024 1:47 AM [facility] PF Ratio 328 Ratio 06/15/2024 1:47 AM [facility] Comment:PF ratio calculated using the non-temperature corrected pO2 result. IONIZED CALCIUM, ARTERIAL 1.17 1.15 - 1.33 mmol/L 06/15/2024 1:47 AM [facility] Glucose, Arterial 127 65 - 199 mg/dL 06/15/2024 1:47 AM EST [facility] Comment:Glucose Concentratio n >=200 mg/dL plus symptoms is consistent with Diabetes Mellitus. Blood ARTERIAL BLOOD / Unknown 06/15/2024 1:46 AM EST 06/15/2024 1:47 AM EST Bobby Loja MD POINT OF CARE TEST O NIKA Performing Organization Address City/[facility]/ZIP Co de Phone Number [facility] [place] [address] * POC, GLUCOSE (06/15/2024 1:05 AM EST) Glucometer, POC 116 65 - 199 mg/dL 06/15/2024 1:05 AM EST [facility] Comment:Supplemental ranges: <140 mg/dL before meals <180 mg/dL all other times of the day. Blood CAPILLARY BLOOD / Unknown 06/15/2024 1:05 AM EST 06/15/2024 1:05 AM EST Bobby Loja MD POINT OF CARE TEST O NIKA Performing Organization Address [facility] Co de Phone Number [facility] [place] [address] * POC, GLUCOSE (06/15/2024 12:16 AM EST) Glucometer, POC 135 65 - 199 mg/dL 06/15/2024 12:16 AM EST [facility] Comment:Supplemental ranges: <140 mg/dL before meals <180 mg/dL all other times of the day. Blood CAPILLARY BLOOD / Unknown 06/15/2024 12:16 AM EST 06/15/2024 12:16 AM EST Bobby Loja MD POINT OF CARE TEST O NIKA Performing Organization Address City/[facility]/ZIP Co de Phone Number [facility] [place] [address] * Potassium (06/14/2024 11:28 PM EST) Potassium 4.1 3.5 - 5.0 mMol/L 06/14/2024 11:54 PM EST [facility] Blood VENOUS BLOOD SPECIMEN / Unknown Venipuncture / Unknown 06/14/2024 11:28 PM EST 06/14/2024 11:34 PM EST Bobby Loja MD CHEMISTRY ORDERABLES [facility] [place] [address] * POC, GLUCOSE (06/14/2024 10:58 PM EST) Glucometer, POC 126 65 - 199 mg/dL 06/14/2024 10:59 PM EST [facility] Comment:Supplemental ranges: <140 mg/dL before meals <180 mg/dL all other times of the day. Blood CAPILLARY BLOOD / Unknown 06/14/2024 10:58 PM EST 06/14/2024 10:59 PM EST Bobby Loja MD POINT OF CARE TEST O RDERABLES Performing Organization Address City/[facility]/ZIP Co de Phone Number [facility] [place] [address] * POC, GLUCOSE (06/14/2024 9:55 PM EST) Glucometer, POC 152 65 - 199 mg/dL 06/14/2024 9:56 PM EST [facility] Comment:Supplemental ranges: <140 mg/dL before meals <180 mg/dL all other times of the day. Blood CAPILLARY BLOOD / Unknown 06/14/2024 9:55 PM EST 06/14/2024 9:56 PM EST Bobby Loja MD POINT OF CARE TEST O RDBECKIE [facility] [place] [address] * POC, GLUCOSE (06/14/2024 8:54 PM EST) Glucometer, POC 151 65 - 199 mg/dL 06/14/2024 8:54 PM EST [facility] Comment:Supplemental ranges: <140 mg/dL before meals <180 mg/dL all other times of the day. Blood CAPILLARY BLOOD / Unknown 06/14/2024 8:54 PM EST 06/14/2024 8:54 PM EST Bobby Loja MD POINT OF CARE TEST O RDERAPIETER Performing Organization Address City/[facility]/ZIP Co de Phone Number [facility] [place] [address] * POC, GLUCOSE (06/14/2024 7:51 PM EST) Glucometer, POC 169 65 - 199 mg/dL 06/14/2024 7:52 PM EST [facility] Comment:Supplemental ranges: <140 mg/dL before meals <180 mg/dL all other times of the day. Blood CAPILLARY BLOOD / Unknown 06/14/2024 7:51 PM EST 06/14/2024 7:52 PM EST Bobby Loja MD POINT OF CARE TEST O RDERAPIETER Performing Organization Address City/[facility]/ZIP Co de Phone Number [facility] [place] [address] * POC, GLUCOSE (06/14/2024 6:49 PM EST) Glucometer, POC 194 65 - 199 mg/dL 06/14/2024 6:50 PM EST [facility] Comment:Supplemental ranges: <140 mg/dL before meals <180 mg/dL all other times of the day. Blood CAPILLARY BLOOD / Unknown 06/14/2024 6:49 PM EST 06/14/2024 6:50 PM EST Bobby Loja MD POINT OF CARE TEST O RDERAPIETER [facility] [place] [address] * (ABNORMAL) Hemoglobin (06/14/2024 6:19 PM EST) [facility] Hemoglobin 13.1(L) 13.7 - 16.5 g/dL 06/14/2024 7:08 PM EST [facility] Blood VENOUS BLOOD SPECIMEN / Unknown Venipuncture / Unknown 06/14/2024 6:19 PM EST 06/14/2024 6:28 PM EST Bobby Loja MD HEMATOLOGY ORDERABLE S Performing Organization Address [facility] Co ks Phone Number [facility] [place] [address] * Potassium (06/14/2024 6:19 PM EST) [facility] Potassium 3.9 3.5 - 5.0 mMol/L 06/14/2024 6:52 PM EST [facility] Blood VENOUS BLOOD SPECIMEN / Unknown Venipuncture / Unknown 06/14/2024 6:19 PM EST 06/14/2024 6:28 PM EST Bobby Loja MD CHEMISTRY ORDERABLES Performing Organization Address [facility] de Phone Number [facility] [place] [address] * (ABNORMAL) POC, GLUCOSE (06/14/2024 6:03 PM EST) [facility] Glucometer, POC 201(H) 65 - 199 mg/dL 06/14/2024 6:03 PM EST [facility] Comment:Supplemental ranges: <140 mg/dL before meals <180 mg/dL all other times of the day. Blood CAPILLARY BLOOD / Unknown 06/14/2024 6:03 PM EST 06/14/2024 6:03 PM EST Bobby Loja MD POINT OF CARE TEST O RDERABLES [facility] [place] [address] * (ABNORMAL) Blood Gas, Arterial POC (06/14/2024 4:51 PM EST) pH, Arterial 7.32(L) 7.35 - 7.45 06/14/2024 4:52 PM EST [facility] PCO2, Arterial 46(H) 35 - 45 mmHg 06/14/2024 4:52 PM [facility] PO2, Arterial 85 85 - 104 mmHg 06/14/2024 4:52 PM [facility] Bicarbonate, Arterial 23.1 20.0 - 26.0 mmol/L 06/14/2024 4:52 PM [facility] Base Excess, Arterial -3.1(L) -3.0 - 3.0 mmol/L 06/14/2024 4:52 PM [facility] Hemoglobin, Arterial 14.3 13.7 - 16.5 g/dL 06/14/2024 4:52 PM [facility] Oxyhemoglobin, Arterial 94.7 94.0 - 97.0 % 06/14/2024 4:52 PM [facility] Carboxyhemoglobin , Arterial 0.6 % 06/14/2024 4:52 PM [facility] Comment: Nonsmokers: 0.5-1.5% COHB ?? Smokers: Variable ??but usually less than 10% ?? Toxic: 20-30% COHB ?? Lethal: Greater than 60% COHB Methemoglobin, Arterial 0.0 <=1.5 % 06/14/2024 4:52 PM [facility] Sodium, Arterial 138 135 - 145 mmol/L 06/14/2024 4:52 PM [facility] Potassium, Arterial 4.1 3.5 - 5.0 mmol/L 06/14/2024 4:52 PM [facility] Chloride, Arterial 106 98 - 107 mmol/L 06/14/2024 4:52 PM [facility] Lactate, Arterial 1.3 0.5 - 2.2 mmol/L 06/14/2024 4:52 PM EST [facility] Fraction of Inspired Oxygen 40 % 06/14/2024 4:52 PM EST [facility] PF Ratio 213 Ratio 06/14/2024 4:52 PM EST [facility] Comment:PF ratio calculated using the non-temperature corrected pO2 result. IONIZED CALCIUM, ARTERIAL 1.16 1.15 - 1.33 mmol/L 06/14/2024 4:52 PM EST [facility] Glucose, Arterial 192 65 - 199 mg/dL 06/14/2024 4:52 PM EST [facility] Comment:Glucose Concentratio n >=200 mg/dL plus symptoms is consistent with Diabetes Mellitus. Blood ARTERIAL BLOOD / Unknown 06/14/2024 4:51 PM EST 06/14/2024 4:52 PM EST Bobby Loja MD POINT OF CARE TEST O NIKA Performing Organization Address City/[facility]/ZIP Co de Phone Number [facility] [place] [address] * POC, GLUCOSE (06/14/2024 4:00 PM EST) Pathologist [employer] Glucometer, POC 184 65 - 199 mg/dL 06/14/2024 4:01 PM EST [facility] Comment:Supplemental ranges: <140 mg/dL before meals <180 mg/dL all other times of the day. Blood CAPILLARY BLOOD / Unknown 06/14/2024 4:00 PM EST 06/14/2024 4:01 PM EST Bobby Loja MD POINT OF CARE TEST Abimael MAHER Performing Organization Address City/[facility]/[place] [address] * XR Chest One View (06/14/2024 3:05 PM EST) [employer] WORKSTATION ID [id number] RAD Anatomical Region Laterality Modality Chest N/A [...] who have questions please contact the health property caretaker that requested your imaging first. ? [...] patients who have questions please contactthe health property caretaker that requested your imaging first. Bobby Loja MD IMG DX ORDERABLES * (ABNORMAL) Blood Gas, Arterial POC (06/14/2024 2:52 PM EST) pH, Arterial 7.28(LLL) 7.35 - 7.45 06/14/2024 2:53 PM EST [facility] PCO2, Arterial 50(H) 35 - 45 mmHg 06/14/2024 2:53 PM [facility] PO2, Arterial 510(H) 85 - 104 mmHg 06/14/2024 2:53 PM [facility] Bicarbonate, Arterial 22.8 20.0 - 26.0 mmol/L 06/14/2024 2:53 PM [facility] Base Excess, Arterial -4.0(L) -3.0 - 3.0 mmol/L 06/14/2024 2:53 PM [facility] Hemoglobin, Arterial 13.8 13.7 - 16.5 g/dL 06/14/2024 2:53 PM [facility] Oxyhemoglobin, Arterial 99.3(H) 94.0 - 97.0 % 06/14/2024 2:53 PM [facility] Carboxyhemoglobin , Arterial 0.6 % 06/14/2024 2:53 PM [facility] Comment: Nonsmokers: 0.5-1.5% COHB ?? Smokers: Variable ??but usually less than 10% ?? Toxic: 20-30% COHB ?? Lethal: Greater than 60% COHB Methemoglobin, Arterial 0.1 <=1.5 % 06/14/2024 2:53 PM [facility] Sodium, Arterial 138 135 - 145 mmol/L 06/14/2024 2:53 PM [facility] Potassium, Arterial 4.2 3.5 - 5.0 mmol/L 06/14/2024 2:53 PM [facility] Chloride, Arterial 106 98 - 107 mmol/L 06/14/2024 2:53 PM [facility] Lactate, Arterial 1.1 0.5 - 2.2 mmol/L 06/14/2024 2:53 PM [facility] Fraction of Inspired Oxygen 100 % 06/14/2024 2:53 PM [facility] PF Ratio 510 Ratio 06/14/2024 2:53 PM [facility] Comment:PF ratio calculated using the non-temperature corrected pO2 result. IONIZED CALCIUM, ARTERIAL 1.15 1.15 - 1.33 mmol/L 06/14/2024 2:53 PM [facility] Glucose, Arterial 169 65 - 199 mg/dL 06/14/2024 2:53 PM [facility] Comment:Glucose Concentratio n >=200 mg/dL plus symptoms is consistent with Diabetes Mellitus. Blood ARTERIAL BLOOD / Unknown 06/14/2024 2:52 PM EST 06/14/2024 2:53 PM EST Bobby Loja MD POINT OF CARE TEST O RDERABLES Performing Organization Address City/[facility]/ZIP Co de Phone Number [facility] [place] [address] * EKG 12 Lead (06/14/2024 2:46 PM EST) Ventricular rate 80 BPM MUSE SYSTEM Atrial Rate 80 BPM MUSE SYSTEM P-R Interval 120 ms MUSE SYSTEM QRS Duration 108 ms MUSE SYSTEM Q-T Interval 454 ms MUSE SYSTEM QTC Calculated (Bezet) 523 ms MUSE SYSTEM Calculated P [place] 70 degrees MUSE SYSTEM Calculated R [place] 56 degrees MUSE SYSTEM Calculated T [place] 50 degrees MUSE SYSTEM INTERPRETATION AV dual-paced rhythm Abnormal ECG When compared with ECG of 03-JUN-2024 01:45, Vent. rate has increased BY ??17 BPM Confirmed by MD Marisol, Shaheen ([id number]) on 06/15/2024 1:57:23 PM MUSE SYSTEM 06/14/2024 2:46 PM EST 06/15/2024 1:57 PM EST Bobby Loja MD ECG ORDERABLES Performing Organization Address City/[facility]/ZIP Co de Phone Number MUSE SYSTEM * Prepare RBC (06/14/2024 2:27 PM EST) Status Information Returned [facility] Product Identification RBC [facility] Unit [facility] [id number] [facility] Product Code [id number] [facility] Unit Blood Type OPOS [facility] Specimen Expiration Date [facility] Volulme 350 [facility] Issue Date / Time [facility] Status [facility] Returned [facility] Product Identification RBC [facility] Unit Number [id number] [facility] Product Code [id number] [facility] Unit Blood Type OPOS [facility] Specimen Expiration Date [facility] Volulme 350 [facility] Issue Date / Time [facility] Blood 06/14/2024 6:2 5 AM EST Haja Byrnes MD BLOOD BANK PRODUCT O RDERAPIETER [facility] [place] [address] * (ABNORMAL) Cooximetry, POC (06/14/2024 1:52 PM EST) pO2, Coox 58 mmHg 06/14/2024 1:55 PM EST [facility] Hemoglobin, Coox 12.6(L) 13.7 - 16.5 g/dL 06/14/2024 1:55 PM EST [facility] Oxyhemoglobin, Coox 85.5 % 06/14/2024 1:55 PM EST [facility] Carboxyhemoglo bin, Coox 0.3 % 06/14/2024 1:55 PM EST [facility] Comment: Nonsmokers: 0.5-1.5% COHB ?? Smokers: Variable ??but usually less than 10% ?? Toxic: 20-30% COHB ?? Lethal: Greater than 60% COHB Methemoglobin, Coox 0.6 <=1.5 % 06/14/2024 1:55 PM EST [facility] Blood (Mixed Venous) 06/14/2024 1:52 PM EST 06/14/2024 1:55 PM EST Haja Byrnes MD POINT OF CARE TEST O NIKA Performing Organization Address City/[facility]/ZIP Co de Phone Number [facility] [place] [address] * (ABNORMAL) Blood Gas, Arterial POC (06/14/2024 12:47 PM EST) pH, Arterial 7.33(L) 7.35 - 7.45 06/14/2024 12:48 PM EST [facility] PCO2, Arterial 46(H) 35 - 45 mmHg 06/14/2024 12:48 PM EST [facility] PO2, Arterial 358(H) 85 - 104 mmHg 06/14/2024 12:48 PM [facility] Bicarbonate, Arterial 23.8 20.0 - 26.0 mmol/L 06/14/2024 12:48 PM [facility] Base Excess, Arterial -2.1 -3.0 - 3.0 mmol/L 06/14/2024 12:48 PM [facility] Hemoglobin, Arterial 11.7(L) 13.7 - 16.5 g/dL 06/14/2024 12:48 PM [facility] Oxyhemoglobin, Arterial 98.7(H) 94.0 - 97.0 % 06/14/2024 12:48 PM [facility] Carboxyhemoglobin , Arterial 0.3 % 06/14/2024 12:48 PM [facility] Comment: Nonsmokers: 0.5-1.5% COHB ?? Smokers: Variable ??but usually less than 10% ?? Toxic: 20-30% COHB ?? Lethal: Greater than 60% COHB Methemoglobin, Arterial 0.5 <=1.5 % 06/14/2024 12:48 PM [facility] Sodium, Arterial 135 135 - 145 mmol/L 06/14/2024 12:48 PM [facility] Potassium, Arterial 5.0 3.5 - 5.0 mmol/L 06/14/2024 12:48 PM [facility] Chloride, Arterial 106 98 - 107 mmol/L 06/14/2024 12:48 PM [facility] Lactate, Arterial 1.4 0.5 - 2.2 mmol/L 06/14/2024 12:48 PM [facility] IONIZED CALCIUM, ARTERIAL 1.09(L) 1.15 - 1.33 mmol/L 06/14/2024 12:48 PM [facility] Glucose, Arterial 157 65 - 199 mg/dL 06/14/2024 12:48 PM [facility] Comment:Glucose Concentratio n >=200 mg/dL plus symptoms is consistent with Diabetes Mellitus. Blood ARTERIAL BLOOD / Unknown 06/14/2024 12:47 PM EST 06/14/2024 12:48 PM EST Haja Byrnes MD POINT OF CARE TEST [facility] [place] [address] * (ABNORMAL) Cooximetry, POC (06/14/2024 12:42 PM EST) pO2, Coox 71 mmHg 06/14/2024 12:45 PM EST [facility] Hemoglobin, Coox 11.6(L) 13.7 - 16.5 g/dL 06/14/2024 12:45 PM EST [facility] Oxyhemoglobin, Coox 91.5 % 06/14/2024 12:45 PM EST [facility] Carboxyhemoglo bin, Coox 0.3 % 06/14/2024 12:45 PM EST [facility] Comment: Nonsmokers: 0.5-1.5% COHB ?? Smokers: Variable ??but usually less than 10% ?? Toxic: 20-30% COHB ?? Lethal: Greater than 60% COHB Methemoglobin, Coox 0.4 <=1.5 % 06/14/2024 12:45 PM EST [facility] Blood (Mixed Venous) 06/14/2024 12:42 PM EST 06/14/2024 12:45 PM EST Haja Byrnes MD POINT OF CARE TEST O NIKA [facility] [place] [address] * (ABNORMAL) Platelet count (06/14/2024 12:30 PM EST) Platelet 73(L) 145 - 357 x10(3)/mcL 06/14/2024 12:54 PM EST [facility] Blood ARTERIAL BLOOD / Unknown 06/14/2024 12:30 PM EST Comment:Pre-op diagnosis: CAD Bobby Loja MD HEMATOLOGY ORDERABLE S Performing Organization Address City/[facility]/ZIP Co de Phone Number [facility] [place] [address] * (ABNORMAL) Hemoglobin and Hematocrit, blood (06/14/2024 12:30 PM EST) Hemoglobin 10.9(L) 13.7 - 16.5 g/dL 06/14/2024 12:54 PM EST [facility] Hematocrit 33.5(L) 40.5 - 48.5 % 06/14/2024 12:54 PM EST [facility] Comment:This result has been called to Danielle López by Satya Page on 06/14/2024 12:53:56, and has been read back. Blood ARTERIAL BLOOD / Unknown 06/14/2024 12:30 PM EST 06/14/2024 12:42 PM EST Comment:Pre-op diagnosis: CAD Bobyb Loja MD HEMATOLOGY ORDERABLE S Performing Organization Address [facility]/ZIP Co de Phone Number [facility] [place] [address] * APTT (06/14/2024 12:30 PM EST) Partial Thromboplastin Time 31 25 - 37 sec 06/14/2024 12:57 PM EST [facility] Comment: The PTT is NOT [...] Performing Organization Address City/[facility]/ZIP Co de Phone Number [facility] [place] [address] * (ABNORMAL) Prothrombin Time (06/14/2024 12:30 PM EST) Prothrombin Time 16.8(H) 9.4 - 12.5 sec 06/14/2024 12:57 PM EST [facility] International Normalization Ratio 1.5 <=4.9 06/14/2024 12:57 PM EST [facility] Comment: An INR < 2.0 [...] Performing Organization Address City/[facility]/ZIP Co de Phone Number [facility] [place] [address] * Fibrinogen (06/14/2024 12:30 PM EST) Fibrinogen 211 200 - 393 mg/dL 06/14/2024 12:57 PM EST [facility] Comment: A fibrinogen level >100 mg/dL is adequate for hemostasis in most patients without underlying bleeding disorders. Blood ARTERIAL BLOOD / Unknown 06/14/2024 12:30 PM EST 06/14/2024 12:42 PM EST Comment:Pre-op diagnosis: CAD Bobby Loja MD HEMATOLOGY ORDERABLE S [facility] [place] [address] * (ABNORMAL) Blood Gas, Arterial POC (06/14/2024 12:15 PM EST) pH, Arterial 7.38 7.35 - 7.45 06/14/2024 12:16 PM EST [facility] PCO2, Arterial 40 35 - 45 mmHg 06/14/2024 12:16 PM [facility] Bicarbonate, Arterial 22.9 20.0 - 26.0 mmol/L 06/14/2024 12:16 PM [facility] Base Excess, Arterial -2.3 -3.0 - 3.0 mmol/L 06/14/2024 12:16 PM [facility] Hemoglobin, Arterial 11.4(L) 13.7 - 16.5 g/dL 06/14/2024 12:16 PM [facility] Oxyhemoglobin, Arterial 98.8(H) 94.0 - 97.0 % 06/14/2024 12:16 PM [facility] Carboxyhemoglobin , Arterial 0.3 % 06/14/2024 12:16 PM [facility] Comment: Nonsmokers: 0.5-1.5% COHB ?? Smokers: Variable ??but usually less than 10% ?? Toxic: 20-30% COHB ?? Lethal: Greater than 60% COHB Methemoglobin, Arterial 0.6 <=1.5 % 06/14/2024 12:16 PM [facility] Sodium, Arterial 134(L) 135 - 145 mmol/L 06/14/2024 12:16 PM [facility] Potassium, Arterial 5.4(H) 3.5 - 5.0 mmol/L 06/14/2024 12:16 PM [facility] Chloride, Arterial 105 98 - 107 mmol/L 06/14/2024 12:16 PM [facility] Lactate, Arterial 1.3 0.5 - 2.2 mmol/L 06/14/2024 12:16 PM [facility] IONIZED CALCIUM, ARTERIAL 1.08(L) 1.15 - 1.33 mmol/L 06/14/2024 12:16 PM [facility] Glucose, Arterial 161 65 - 199 mg/dL 06/14/2024 12:16 PM [facility] Comment:Glucose Concentratio n >=200 mg/dL plus symptoms is consistent with Diabetes Mellitus. Blood ARTERIAL BLOOD / Unknown 06/14/2024 12:15 PM EST 06/14/2024 12:16 PM EST Haja Byrnes MD POINT OF CARE TEST O RDERABLES [facility] [place] [address] * (ABNORMAL) Blood Gas, Arterial POC (06/14/2024 11:51 AM EST) pH, Arterial 7.40 7.35 - 7.45 06/14/2024 11:52 AM [facility] PCO2, Arterial 41 35 - 45 mmHg 06/14/2024 11:52 AM [facility] PO2, Arterial 332(H) 85 - 104 mmHg 06/14/2024 11:52 AM [facility] Bicarbonate, Arterial 24.7 20.0 - 26.0 mmol/L 06/14/2024 11:52 AM [facility] Base Excess, Arterial -0.1 -3.0 - 3.0 mmol/L 06/14/2024 11:52 AM [facility] Hemoglobin, Arterial 11.1(L) 13.7 - 16.5 g/dL 06/14/2024 11:52 AM [facility] Oxyhemoglobin, Arterial 98.7(H) 94.0 - 97.0 % 06/14/2024 11:52 AM [facility] Carboxyhemoglobin , Arterial 0.3 % 06/14/2024 11:52 AM [facility] Comment: Nonsmokers: 0.5-1.5% COHB ?? Smokers: Variable ??but usually less than 10% ?? Toxic: 20-30% COHB ?? Lethal: Greater than 60% COHB Methemoglobin, Arterial 0.4 <=1.5 % 06/14/2024 11:52 AM [facility] Sodium, Arterial 135 135 - 145 mmol/L 06/14/2024 11:52 AM [facility] Potassium, Arterial 5.7(H) 3.5 - 5.0 mmol/L 06/14/2024 11:52 AM [facility] Chloride, Arterial 105 98 - 107 mmol/L 06/14/2024 11:52 AM [facility] Lactate, Arterial 1.2 0.5 - 2.2 mmol/L 06/14/2024 11:52 AM [facility] IONIZED CALCIUM, ARTERIAL 1.10(L) 1.15 - 1.33 mmol/L 06/14/2024 11:52 AM [facility] Glucose, Arterial 148 65 - 199 mg/dL 06/14/2024 11:52 AM [facility] Comment:Glucose Concentratio n >=200 mg/dL plus symptoms is consistent with Diabetes Mellitus. Blood ARTERIAL BLOOD / Unknown 06/14/2024 11:51 AM EST 06/14/2024 11:52 AM EST Haja Byrnes MD POINT OF CARE TEST O RDERABLES [facility] [place] [address] * (ABNORMAL) Blood Gas, Arterial POC (06/14/2024 11:27 AM EST) pH, Arterial 7.38 7.35 - 7.45 06/14/2024 11:28 AM [facility] PCO2, Arterial 37 35 - 45 mmHg 06/14/2024 11:28 AM [facility] PO2, Arterial 348(H) 85 - 104 mmHg 06/14/2024 11:28 AM [facility] Bicarbonate, Arterial 21.1 20.0 - 26.0 mmol/L 06/14/2024 11:28 AM [facility] Base Excess, Arterial -4.1(L) -3.0 - 3.0 mmol/L 06/14/2024 11:28 AM [facility] Hemoglobin, Arterial 11.0(L) 13.7 - 16.5 g/dL 06/14/2024 11:28 AM [facility] Oxyhemoglobin, Arterial 98.7(H) 94.0 - 97.0 % 06/14/2024 11:28 AM [facility] Carboxyhemoglobin , Arterial 0.3 % 06/14/2024 11:28 AM [facility] Comment: Nonsmokers: 0.5-1.5% COHB ?? Smokers: Variable ??but usually less than 10% ?? Toxic: 20-30% COHB ?? Lethal: Greater than 60% COHB Methemoglobin, Arterial 0.4 <=1.5 % 06/14/2024 11:28 AM [facility] Sodium, Arterial 132(L) 135 - 145 mmol/L 06/14/2024 11:28 AM [facility] Potassium, Arterial 5.8(H) 3.5 - 5.0 mmol/L 06/14/2024 11:28 AM [facility] Chloride, Arterial 105 98 - 107 mmol/L 06/14/2024 11:28 AM [facility] Lactate, Arterial 1.1 0.5 - 2.2 mmol/L 06/14/2024 11:28 AM [facility] IONIZED CALCIUM, ARTERIAL 1.03(L) 1.15 - 1.33 mmol/L 06/14/2024 11:28 AM [facility] Glucose, Arterial 147 65 - 199 mg/dL 06/14/2024 11:28 AM [facility] Comment:Glucose Concentratio n >=200 mg/dL plus symptoms is consistent with Diabetes Mellitus. Blood ARTERIAL BLOOD / Unknown 06/14/2024 11:27 AM EST 06/14/2024 11:28 AM EST Haja Byrnes MD POINT OF CARE TEST O RDERABLES [facility] [place] [address] * (ABNORMAL) Scan, Peripheral Blood (06/14/2024 11:23 AM EST) RBC Morphology Abnormal 06/14/2024 11:59 AM EST [facility] Platelet Estimate Decreased(A) Normal 06/14/2024 11:59 AM EST [facility] [place] cells 1-5 /HPF 06/14/2024 11:59 AM EST [facility] Blood ARTERIAL BLOOD / Unknown 06/14/2024 11:23 AM EST 06/14/2024 11:27 AM EST Bobby Loja MD HEMATOLOGY ORDERABLE S [facility] [place] [address] * (ABNORMAL) Platelet count (06/14/2024 11:23 AM EST) Platelet 86(L) 145 - 357 x10(3)/mcL 06/14/2024 11:59 AM EST [facility] Blood ARTERIAL BLOOD / Unknown 06/14/2024 11:23 AM EST Comment:Pre-op diagnosis: CAD Bobby Loja MD HEMATOLOGY ORDERABLE S [facility] [place] [address] * (ABNORMAL) Hemoglobin and Hematocrit, blood (06/14/2024 11:23 AM EST) Hemoglobin 9.8(L) 13.7 - 16.5 g/dL 06/14/2024 11:59 AM EST [facility] Comment:This result has been called to Danielle López by Satya Page on 06/14/2024 11:58:33. Hematocrit 30.5(L) 40.5 - 48.5 % 06/14/2024 11:59 AM EST [facility] Comment:This result has been called to Danielle López by Satya Page on 06/14/2024 11:58:40, and has been read back. Blood ARTERIAL BLOOD / Unknown 06/14/2024 11:23 AM EST 06/14/2024 11:27 AM EST Comment:Pre-op diagnosis: CAD Bobby Loja MD HEMATOLOGY ORDERABLE S [facility] [place] [address] * (ABNORMAL) Blood Gas, Arterial POC (06/14/2024 10:58 AM EST) pH, Arterial 7.38 7.35 - 7.45 06/14/2024 10:59 AM [facility] PCO2, Arterial 43 35 - 45 mmHg 06/14/2024 10:59 AM [facility] PO2, Arterial 401(H) 85 - 104 mmHg 06/14/2024 10:59 AM [facility] Bicarbonate, Arterial 24.8 20.0 - 26.0 mmol/L 06/14/2024 10:59 AM [facility] Base Excess, Arterial -0.5 -3.0 - 3.0 mmol/L 06/14/2024 10:59 AM [facility] Hemoglobin, Arterial 11.9(L) 13.7 - 16.5 g/dL 06/14/2024 10:59 AM [facility] Oxyhemoglobin, Arterial 99.0(H) 94.0 - 97.0 % 06/14/2024 10:59 AM [facility] Carboxyhemoglobin , Arterial 0.3 % 06/14/2024 10:59 AM [facility] Comment: Nonsmokers: 0.5-1.5% COHB ?? Smokers: Variable ??but usually less than 10% ?? Toxic: 20-30% COHB ?? Lethal: Greater than 60% COHB Methemoglobin, Arterial 0.3 <=1.5 % 06/14/2024 10:59 AM [facility] Sodium, Arterial 128(L) 135 - 145 mmol/L 06/14/2024 10:59 AM [facility] Potassium, Arterial 6.6(HHH) 3.5 - 5.0 mmol/L 06/14/2024 10:59 AM [facility] Chloride, Arterial 99 98 - 107 mmol/L 06/14/2024 10:59 AM [facility] Lactate, Arterial 1.3 0.5 - 2.2 mmol/L 06/14/2024 10:59 AM [facility] IONIZED CALCIUM, ARTERIAL 1.00(L) 1.15 - 1.33 mmol/L 06/14/2024 10:59 AM [facility] Glucose, Arterial 155 65 - 199 mg/dL 06/14/2024 10:59 AM [facility] Comment:Glucose Concentratio n >=200 mg/dL plus symptoms is consistent with Diabetes Mellitus. Blood ARTERIAL BLOOD / Unknown 06/14/2024 10:58 AM EST 06/14/2024 10:59 AM EST Haja Byrnes MD POINT OF CARE TEST O RDERABLES [facility] [place] [address] * (ABNORMAL) Blood Gas, Arterial POC (06/14/2024 10:26 AM EST) pH, Arterial 7.29(LLL) 7.35 - 7.45 06/14/2024 10:27 AM [facility] PCO2, Arterial 43 35 - 45 mmHg 06/14/2024 10:27 AM [facility] PO2, Arterial 369(H) 85 - 104 mmHg 06/14/2024 10:27 AM [facility] Bicarbonate, Arterial 19.9(L) 20.0 - 26.0 mmol/L 06/14/2024 10:27 AM [facility] Base Excess, Arterial -6.7(L) -3.0 - 3.0 mmol/L 06/14/2024 10:27 AM [facility] Hemoglobin, Arterial 12.6(L) 13.7 - 16.5 g/dL 06/14/2024 10:27 AM [facility] Oxyhemoglobin, Arterial 99.1(H) 94.0 - 97.0 % 06/14/2024 10:27 AM [facility] Carboxyhemoglobin , Arterial 0.1 % 06/14/2024 10:27 AM [facility] Comment: Nonsmokers: 0.5-1.5% COHB ?? Smokers: Variable ??but usually less than 10% ?? Toxic: 20-30% COHB ?? Lethal: Greater than 60% COHB Methemoglobin, Arterial 0.4 <=1.5 % 06/14/2024 10:27 AM [facility] Sodium, Arterial 129(L) 135 - 145 mmol/L 06/14/2024 10:27 AM [facility] Potassium, Arterial 5.0 3.5 - 5.0 mmol/L 06/14/2024 10:27 AM [facility] Chloride, Arterial 99 98 - 107 mmol/L 06/14/2024 10:27 AM [facility] Lactate, Arterial 0.9 0.5 - 2.2 mmol/L 06/14/2024 10:27 AM [facility] IONIZED CALCIUM, ARTERIAL 1.05(L) 1.15 - 1.33 mmol/L 06/14/2024 10:27 AM [facility] Glucose, Arterial 149 65 - 199 mg/dL 06/14/2024 10:27 AM [facility] Comment:Glucose Concentratio n >=200 mg/dL plus symptoms is consistent with Diabetes Mellitus. Blood ARTERIAL BLOOD / Unknown 06/14/2024 10:26 AM EST 06/14/2024 10:27 AM EST Haja Byrnes MD POINT OF CARE TEST O NIKA [facility] [place] [address] * (ABNORMAL) Blood Gas, Arterial POC (06/14/2024 10:25 AM EST) pH, Arterial 7.26(LLL) 7.35 - 7.45 06/14/2024 10:26 AM [facility] PCO2, Arterial 48(H) 35 - 45 mmHg 06/14/2024 10:26 AM [facility] Bicarbonate, Arterial 21.2 20.0 - 26.0 mmol/L 06/14/2024 10:26 AM [facility] Base Excess, Arterial -5.8(L) -3.0 - 3.0 mmol/L 06/14/2024 10:26 AM [facility] Hemoglobin, Arterial 12.5(L) 13.7 - 16.5 g/dL 06/14/2024 10:26 AM [facility] Oxyhemoglobin, Arterial 82.3(L) 94.0 - 97.0 % 06/14/2024 10:26 AM [facility] Carboxyhemoglobin , Arterial 0.5 % 06/14/2024 10:26 AM [facility] Comment: Nonsmokers: 0.5-1.5% COHB ?? Smokers: Variable ??but usually less than 10% ?? Toxic: 20-30% COHB ?? Lethal: Greater than 60% COHB Methemoglobin, Arterial 0.5 <=1.5 % 06/14/2024 10:26 AM [facility] Sodium, Arterial 131(L) 135 - 145 mmol/L 06/14/2024 10:26 AM [facility] Potassium, Arterial 4.6 3.5 - 5.0 mmol/L 06/14/2024 10:26 AM [facility] Chloride, Arterial 103 98 - 107 mmol/L 06/14/2024 10:26 AM [facility] Lactate, Arterial 0.8 0.5 - 2.2 mmol/L 06/14/2024 10:26 AM [facility] IONIZED CALCIUM, ARTERIAL 0.91(LLL) 1.15 - 1.33 mmol/L 06/14/2024 10:26 AM EST [facility] Glucose, Arterial 148 65 - 199 mg/dL 06/14/2024 10:26 AM EST [facility] Comment:Glucose Concentratio n >=200 mg/dL plus symptoms is consistent with Diabetes Mellitus. Blood ARTERIAL BLOOD / Unknown 06/14/2024 10:25 AM EST 06/14/2024 10:26 AM EST Haja Byrnes MD POINT OF CARE TEST O RDERABLES Performing Organization Address City/State/[facility] Co de Phone Number [facility] [place] [address] * Surgical Pathology (06/14/2024 9:53 AM EST) Case Report Surgical Pathology Report ? Case: [id number] ? Authorizing Provider: ??Bobby Loja MD ? Collected: ? 06/14/2024 0953 ? Ordering Location: ? Main Operating Room [facility] ?? Received: ?06/14/2024 1413 ? [facility] ? Hospital ? Pathologist: ? Sandra Salas MD ? Specimens: ?? A) - Soft Tissue Mass, mediastinal mass ? B) - Heart, Atrial Appendage, Left ? 06/18/2024 10:18 AM [facility] Final Diagnosis A. Soft Tissue Mass, Mediastinal Mass, Excision: - Atrophic thymic tissue B. Heart, Atrial Appendage, Left, Excision: - Mild myocyte hypertrophy 06/18/2024 10:18 AM [facility] Clinical Information A. Soft Tissue Mass, mediastinal mass Soft tissue mass Mediastinal mass B. Heart, Atrial Appendage, Left, *Other - as specified in Clinical Information MARIALUISA 06/18/2024 10:18 AM [facility] Gross Description A. Soft Tissue Mass, mediastinal mass. A - Labeled/Fixative : Mediastinal mass, fresh. Quantity/Size: Single, 7.2 x 5.3 x 1.2 cm. Tissue Description: Unoriented, intact portion of soft, rodriguez-yellow, lobulated tissue. The cut surface is homogenously pale-rodriguez, yellow and lobulated. No lesions or nodules are identified. Inking: External surface inked black Sections/Process ing: Director Of Teenage Activities sections in 4 cassettes labeled A1-A4. cmk B. Heart, Atrial Appendage, Left, . B - Labeled/Fixative : Heart, atrial appendage, left, fresh. Quantity/Size: Single, 3.3 x 1.5 x 0.8 cm. Tissue Description: Portion of heart tissue consisting of rodriguez-white, semitranslucent, smooth endocardium with rodriguez-brown muscular myocardium and thin translucent epicardium with adherent adipose tissue. No areas of discoloration identified. Sections/Process ing: Director Of Teenage Activities sections in 1 cassette labeled B1. cmk 06/18/2024 10:18 AM EST [facility] Result Note Routine 06/18/2024 10:18 AM [facility] Tissue SOFT TISSUE MASS / Unknown 06/14/2024 9:53 AM EST 06/14/2024 2:13 PM EST Comment:Mediastinal mass Tissue specimen (specimen) LEFT ATRIAL APPENDAGE ABSENT / Unknown 06/14/2024 10:54 AM EST 06/14/2024 2:13 PM EST Comment:MARIALUISA Bobby Loja MD PATHOLOGY/CYTOLOGY O RDERABLES [facility] [place] [address] * Cooximetry, POC (06/14/2024 9:00 AM EST) pO2, Coox 57 mmHg 06/14/2024 9:04 AM [facility] PO2 Corrected, COOX 50 mmHg 06/14/2024 9:04 AM [facility] Hemoglobin, Coox 14.3 13.7 - 16.5 g/dL 06/14/2024 9:04 AM [facility] Oxyhemoglobin, Coox 86.2 % 06/14/2024 9:04 AM [facility] Carboxyhemoglobi n, Coox 0.3 % 06/14/2024 9:04 AM [facility] Comment: Nonsmokers: 0.5-1.5% COHB ?? Smokers: Variable ??but usually less than 10% ?? Toxic: 20-30% COHB ?? Lethal: Greater than 60% COHB Methemoglobin, Coox 0.3 <=1.5 % 06/14/2024 9:04 AM [facility] Temperature Coox 35.2 C 06/14/20 24 9:04 AM [facility] Blood (Mixed Venous) 06/14/2024 9:00 AM EST 06/14/2024 9:04 AM EST Haja Byrnes MD POINT OF CARE TEST O RDERABLES [facility] [place] [address] * (ABNORMAL) Blood Gas, Arterial POC (06/14/2024 8:39 AM EST) pH, Arterial 7.37 7.35 - 7.45 06/14/2024 8:40 AM [facility] PCO2, Arterial 42 35 - 45 mmHg 06/14/2024 8:40 AM [facility] PO2, Arterial 341(H) 85 - 104 mmHg 06/14/2024 8:40 AM [facility] Bicarbonate, Arterial 23.7 20.0 - 26.0 mmol/L 06/14/2024 8:40 AM [facility] Base Excess, Arterial -1.6 -3.0 - 3.0 mmol/L 06/14/2024 8:40 AM [facility] Hemoglobin, Arterial 15.2 13.7 - 16.5 g/dL 06/14/2024 8:40 AM [facility] Oxyhemoglobin, Arterial 99.2(H) 94.0 - 97.0 % 06/14/2024 8:40 AM [facility] Carboxyhemoglobin , Arterial 0.1 % 06/14/2024 8:40 AM [facility] Comment: Nonsmokers: 0.5-1.5% COHB ?? Smokers: Variable ??but usually less than 10% ?? Toxic: 20-30% COHB ?? Lethal: Greater than 60% COHB Methemoglobin, Arterial 0.3 <=1.5 % 06/14/2024 8:40 AM EST [facility] Sodium, Arterial 136 135 - 145 mmol/L 06/14/2024 8:40 AM [facility] Potassium, Arterial 4.2 3.5 - 5.0 mmol/L 06/14/2024 8:40 AM EST [facility] Chloride, Arterial 102 98 - 107 mmol/L 06/14/2024 8:40 AM EST [facility] Lactate, Arterial 0.9 0.5 - 2.2 mmol/L 06/14/2024 8:40 AM [facility] IONIZED CALCIUM, ARTERIAL 1.17 1.15 - 1.33 mmol/L 06/14/2024 8:40 AM [facility] Glucose, Arterial 121 65 - 199 mg/dL 06/14/2024 8:40 AM [facility] Comment:Glucose Concentratio n >=200 mg/dL plus symptoms is consistent with Diabetes Mellitus. Blood ARTERIAL BLOOD / Unknown 06/14/2024 8:39 AM EST 06/14/2024 8:40 AM EST Haja Byrnes MD POINT OF CARE TEST O RDERABLES Performing Organization Address City/State/[facility] Co de Phone Number [facility] [place] [address] * Transesophageal Echo/OR (06/14/2024 7:20 AM EST) Anatomical Region Laterality Modality Cardiac Other 06/14/2024 7:20 AM EST Narrative 06/14/2024 4:36 PM EST Version: 2 Study ID: [id number] [id number] ?OR Transesophageal Echo Report Name: GEORGE MEHTA [...] of this mass after consultation with other data analysis intern experts and the decision was made by [...] MD - 06/14/2024 Version: 2 Study ID: [id number] [address] [place] [id number] ORTransesophageal Echo Report Name: GEORGE MEHTA Study [...] of this mass after consultation with other data analysis intern experts and thedecision was made by surgeon [...] - 199 mg/dL 06/14/2024 7:12 AM EST [facility] Comment:Supplemental ranges: <140 mg/dL before meals <180 mg/dL all other times of the day. Blood CAPILLARY BLOOD / Unknown 06/14/2024 7:11 AM EST 06/14/2024 7:12 AM EST Haja Byrnes MD POINT OF CARE TEST O RDERABLES [facility] [place] [address] * POC, GLUCOSE (06/14/2024 4:30 AM EST) Glucometer, POC 85 65 - 199 mg/dL 06/14/2024 4:30 AM EST [facility] Comment:Supplemental ranges: <140 mg/dL before meals <180 mg/dL all other times of the day. Blood CAPILLARY BLOOD / Unknown 06/14/2024 4:30 AM EST 06/14/2024 4:30 AM EST Haja Byrnes MD POINT OF CARE TEST O RDERABLES Performing Organization Address City/[facility]/ZIP Co de Phone Number [facility] [place] [address] * (ABNORMAL) Heparin (unfractionated) Level (06/14/2024 12:12 AM EST) UF Heparin 1.02([facility]) IU/mL 06/14/2024 12:46 AM EST [facility] Comment: Heparin (anti-Xa) levels should [...] Performing Organization Address City/[facility]/ZIP Co de Phone Number [facility] [place] [address] * (ABNORMAL) CBC (with Diff) (06/14/2024 12:12 AM EST) White Blood Cell 10.51(H) 4.00 - 9.50 x10(3)/mc L 06/14/2024 12:38 AM [facility] Red Blood Cell 4.99 4.58 - 5.54 x10(6)/mc L 06/14/2024 12:38 AM [facility] Hemoglobin 14.9 13.7 - 16.5 g/dL 06/14/2024 12:38 AM [facility] Hematocrit 45.9 40.5 - 48.5 % 06/14/2024 12:38 AM [facility] Mean Cell Volume 92.0 82.9 - 93.1 fL 06/14/2024 12:38 AM [facility] Mean Cell Hemoglobin 29.9 27.5 - 32.1 pg 06/14/2024 12:38 AM [facility] Mean Cell Hemoglobin Concentration 32.5 32.0 - 35.7 g/dL 06/14/2024 12:38 AM [facility] Platelet 162 145 - 357 x10(3)/mc L 06/14/2024 12:38 AM [facility] Mean Platelet Volume 10.1 7.6 - 12.9 fL 06/14/2024 12:38 AM [facility] RDW Standard Deviation 46.9(H) 36.0 - 45.0 fL 06/14/2024 12:38 AM [facility] RDW coefficient of variation 13.8 11.4 - 13.8 % 06/14/2024 12:38 AM [facility] NRBC% auto 0.0 % 06/14/2024 12:38 AM [facility] NRBC Absolute <0.01 <0.01 x10(3)/mc L 06/14/2024 12:38 AM [facility] Neutrophil % 56.7 % 06/14/2024 12:38 AM [facility] Neutrophil Absolute (ANC) - Automated 5.96 1.70 - 6.10 x10(3)/mc L 06/14/2024 12:38 AM EST [facility] Lymph % 26.8 % 06/14/2024 12:38 AM [facility] Lymph Absolute 2.82 0.90 - 3.20 x10(3)/mc L 06/14/2024 12:38 AM [facility] Monocyte % 11.2 % 06/14/2024 12:38 AM [facility] Monocyte Absolute 1.18(H) 0.30 - 0.90 x10(3)/mc L 06/14/2024 12:38 AM [facility] Eos % 3.9 % 06/14/2024 12:38 AM [facility] Eos Absolute 0.41(H) 0.00 - 0.40 x10(3)/mc L 06/14/2024 12:38 AM [facility] Basophil % 0.8 % 06/14/2024 12:38 AM [facility] Baso Absolute 0.08 0.00 - 0.10 x10(3)/mc L 06/14/2024 12:38 AM [facility] Immature Gran % 0.6 % 12:38 AM [facility] Immature Gran Absolute 0.06(H) 0.00 - 0.04 x10(3)/mc L 06/14/2024 12:38 AM [facility] Blood VENOUS BLOOD SPECIMEN / Unknown Venipuncture / Unknown 06/14/2024 12:12 AM EST 06/14/2024 12:29 AM EST Shahnaz Scanlon MD HEMATOLOGY ORDERABLE S [facility] [place] [address] * Magnesium (06/14/2024 12:12 AM EST) Magnesium 0.74 0.69 - 1.07 mMol/L 06/14/2024 12:57 AM [facility] Blood VENOUS BLOOD SPECIMEN / Unknown Venipuncture / Unknown 06/14/2024 12:12 AM EST 06/14/2024 12:29 AM EST Shahnaz Scanlon MD CHEMISTRY ORDERABLES [facility] [place] [address] * (ABNORMAL) Basic Metabolic Panel (06/14/2024 12:12 AM EST) Glucose 97 65 - 199 mg/dL 06/14/2024 12:57 AM [facility] Comment:Glucose Concentratio n >=200 mg/dL plus symptoms is consistent with Diabetes Mellitus. Blood Urea Nitrogen 25(H) 10 - 20 mg/dL 06/14/2024 12:57 AM [facility] Creatinine 1.14 0.80 - 1.50 mg/dL 06/14/2024 12:57 AM [facility] Sodium 135 135 - 145 mMol/L 06/14/2024 12:57 AM [facility] Potassium 4.1 3.5 - 5.0 mMol/L 06/14/2024 12:57 AM [facility] Chloride 100 98 - 107 mMol/L 06/14/2024 12:57 AM [facility] Carbon Dioxide 25 22 - 31 mMol/L 06/14/2024 12:57 AM [facility] Anion Gap 10 5 - 15 mMol/L 06/14/2024 12:57 AM [facility] Calcium 9.5 8.5 - 10.5 mg/dL 06/14/2024 12:57 AM [facility] Est Glomerular Filtration Rate - Male 70 mL/min/1. 73 m?? 06/14/2024 12:57 AM [facility] Comment: This [...] ORDERABLES Performing Organization Address [facility]/ZIP Co de Phone Number [facility] [place] [address] * Scan Doc: Implantable Devices (06/14/2024 12:00 AM EST) Narrative 06/14/2024 12:00 AM EST Ordered by an unspecified provider. Scanning Provider MEDIA MGR SCAN EXT O RDR/RSLT * POC, GLUCOSE (06/13/2024 11:12 PM EST) Glucometer, POC 104 65 - 199 mg/dL 06/13/2024 11:13 PM EST [facility] Comment:Supplemental ranges: <140 mg/dL before meals <180 mg/dL all other times of the day. Blood CAPILLARY BLOOD / Unknown 06/13/2024 11:12 PM EST 06/13/2024 11:13 PM EST Haja Byrnes MD POINT OF CARE TEST O RDERABLES Performing Organization Address City/[facility]/ZIP Co de Phone Number [facility] [place] [address] * (ABNORMAL) POC, GLUCOSE (06/13/2024 8:03 PM EST) Glucometer, POC 206(H) 65 - 199 mg/dL 06/13/2024 8:03 PM EST [facility] Comment:Supplemental ranges: <140 mg/dL before meals <180 mg/dL all other times of the day. Blood CAPILLARY BLOOD / Unknown 06/13/2024 8:03 PM EST 06/13/2024 8:03 PM EST Haja Byrnes MD POINT OF CARE TEST O RDERABLES Performing Organization Address City/[facility]/ZIP Co de Phone Number [facility] [place] [address] * Heparin (unfractionated) Level (06/13/2024 4:11 PM EST) UF Heparin 0.76 IU/mL 06/13/2024 4:24 PM EST [facility] Comment: Heparin (anti-Xa) levels should [...] EST Shahnaz Scanlon MD HEMATOLOGY ORDERABLE S [facility] [place] [address] * ABORH RECHECK (06/13/2024 4:11 PM EST) ABORH Recheck O POSITIVE 06/13/2024 4:50 PM EST [facility] Blood VENOUS BLOOD SPECIMEN / Unknown Venipuncture / Unknown 06/13/2024 4:11 PM EST 06/13/2024 4:19 PM EST Haja Byrnes MD BLOOD BANK LAB ORDER EUSEBIA [facility] [place] [address] * (ABNORMAL) POC, GLUCOSE (06/13/2024 4:09 PM EST) [facility] Glucometer, POC 216(H) 65 - 199 mg/dL 06/13/2024 4:10 PM EST [facility] Comment:Supplemental ranges: <140 mg/dL before meals <180 mg/dL all other times of the day. Blood CAPILLARY BLOOD / Unknown 06/13/2024 4:09 PM EST 06/13/2024 4:10 PM EST Haja Byrnes MD POINT OF CARE TEST O RDERABLES [facility] [place] [address] * Type and screen ([facility]/CGP/RAFITA) (06/13/2024 11:53 AM EST) ABORH Type O POSITIVE 06/13/2024 1:16 PM EST [facility] PATIENT HISTORY Not Found 06/13/2024 1:16 PM EST [facility] Expires at [id number] on: 06/16/2024 06/13/2024 1:16 PM EST [facility] ANTIBODY SCREEN AUTOMATED Negative 06/13/2024 1:16 PM EST [facility] T&S only valid at [facility] 06/13/2024 1:16 PM EST [facility] Blood VENOUS BLOOD SPECIMEN / Unknown Venipuncture / Unknown 06/13/2024 11:53 AM EST 06/13/2024 11:56 AM EST Narrative [facility] - 06/13/2024 1:16 PM EST This Type and Screen result is only valid at the [facility] Haja Byrnes MD BLOOD BANK LAB ORDER EUSEBIA Performing Organization Address [facility] Co de Phone Number [facility] [place] [address] * POC, GLUCOSE (06/13/2024 11:50 AM EST) Glucometer, POC 178 65 - 199 mg/dL 06/13/2024 11:51 AM EST [facility] Comment:Supplemental ranges: <140 mg/dL before meals <180 mg/dL all other times of the day. Blood CAPILLARY BLOOD / Unknown 06/13/2024 11:50 AM EST 06/13/2024 11:51 AM EST Haja Byrnes MD POINT OF CARE TEST O RDERABLES Performing Organization Address [facility] de Phone Number [facility] [place] [address] * XR Chest One View (06/13/2024 10:35 AM EST) WORKSTATION ID [id number] [facility] Anatomical Region Laterality Modality Chest N/A Digital [...] who have questions please contact the health property caretaker that requested your imaging first. ? [...] patients who have questions please contactthe health property caretaker that requested your imaging first. Haja Byrnes MD IMG DX ORDERABLES * CARDIAC CATHETERIZATION (06/13/2024 9:02 AM EST) Anatomical Region Laterality Modality Other Narrative 06/15/2024 9:07 AM EST ?[facility] ? Cardiac Catheterization/Intervention Report ? Patient Name: Tyson, George L. ? Procedure Date: 06/13/2024 ? A #: [id number] ? Primary Physician: Nuha Shen I ? Case #: [id number] ? File Name: [id number] ? Catheterization Order Number: [id number] ? [facility] ? Final Report [place], [place] ? Patient Name: ? George LViry Mehta ? ID#: ?[id number] ? : ?1955 ? Procedure Date: ? June 13, 2024 ?Case #: ? [id number] ? Room: ? 6 ? Case Physician: [...] ?was designated as ASA Class IV. The [facility] clinical frailty scale is 5: ?Mildly Frail. [...] was Urgent. The indication for ?the labor economics professor visit is ACS greater than 24 hrs [...] vascular ?ultrasound and IABP insertion in labor economics professor. ? Nuha Shen M.D. ? Electronically Signed by: Nuha Shen M.D. ? Report Finalized: 06/15/2024 ??08:59 ? Procedure Note Nuha Shen MD - 06/15/2024 [facility] Cardiac Catheterization/Intervention Report Patient Name: George MehtaViry Procedure Date: 06/13/2024 A #: [id number] Primary Physician: Nuha Shen I Case #: [id number] File Name: [id number] Catheterization Order Number: [id number] [facility] FinalReport [place], [place] Patient Name: George Mehta ID#:[id number] :1955 Procedure Date: June 13, 2024 Case [...] was designated as ASA Class IV. The [facility] clinical frailty scale is5: Mildly Frail. Diagnostic [...] procedure was Urgent. The indicationfor the labor economics professor visit is ACS greater than 24 hrs [...] angiography,vascular ultrasound and IABP insertion in labor economics professor. Nuha Shen M.D. Electronically Signed by: Nuha Shen M.D. Report Finalized: 06/15/2024 08:59 Nuha Rojo MD CARDIAC CATH ORDERA BLES * Potassium (06/13/2024 7:48 AM EST) Potassium 4.5 3.5 - 5.0 mMol/L 06/13/2024 8:28 AM EST [facility] Blood VENOUS BLOOD SPECIMEN / Unknown Venipuncture / Unknown 06/13/2024 7:48 AM EST 06/13/2024 7:55 AM EST Shahnaz Scanlon MD CHEMISTRY ORDERABLES [facility] [place] [address] * POC, GLUCOSE (06/13/2024 7:41 AM EST) Glucometer, POC 126 65 - 199 mg/dL 06/13/2024 7:41 AM EST [facility] Comment:Supplemental ranges: <140 mg/dL before meals <180 mg/dL all other times of the day. Blood CAPILLARY BLOOD / Unknown 06/13/2024 7:41 AM EST 06/13/2024 7:41 AM EST Ethel Carrillo MD POINT OF CARE TEST O NIKA Performing Organization Address [facility]/ZIP Co de Phone Number [facility] [place] [address] * POC, GLUCOSE (06/13/2024 3:25 AM EST) Glucometer, POC 99 65 - 199 mg/dL 06/13/2024 3:25 AM EST [facility] Comment:Supplemental ranges: <140 mg/dL before meals <180 mg/dL all other times of the day. Blood CAPILLARY BLOOD / Unknown 06/13/2024 3:25 AM EST 06/13/2024 3:25 AM EST Ethel Carrillo MD POINT OF CARE TEST Abimael MAHER Performing Organization Address City/[facility]/ZIP Co de Phone Number [facility] [place] [address] * Heparin (unfractionated) Level (06/13/2024 2:26 AM EST) UF Heparin 0.60 IU/mL 06/13/2024 3:32 AM EST [facility] Comment: Heparin (anti-Xa) levels should [...] ORDERABLE S Performing Organization Address City/State/[facility] Co de Phone Number [facility] [place] [address] * (ABNORMAL) CBC (with Diff) (06/13/2024 2:26 AM EST) White Blood Cell 9.98(H) 4.00 - 9.50 x10(3)/mc L 06/13/2024 2:41 AM EST [facility] Red Blood Cell 5.11 4.58 - 5.54 x10(6)/mc L 06/13/2024 2:41 AM EST [facility] Hemoglobin 15.3 13.7 - 16.5 g/dL 06/13/2024 2:41 AM [facility] Hematocrit 47.1 40.5 - 48.5 % 06/13/2024 2:41 AM [facility] Mean Cell Volume 92.2 82.9 - 93.1 fL 06/13/2024 2:41 AM [facility] Mean Cell Hemoglobin 29.9 27.5 - 32.1 pg 06/13/2024 2:41 AM [facility] Mean Cell Hemoglobin Concentration 32.5 32.0 - 35.7 g/dL 06/13/2024 2:41 AM EST [facility] Platelet 194 145 - 357 x10(3)/mc L 06/13/2024 2:41 AM [facility] Mean Platelet Volume 9.7 7.6 - 12.9 fL 06/13/2024 2:41 AM [facility] RDW Standard Deviation 47.5(H) 36.0 - 45.0 fL 06/13/2024 2:41 AM [facility] RDW coefficient of variation 13.8 11.4 - 13.8 % 06/13/2024 2:41 AM [facility] NRBC% auto 0.0 % 06/13/2024 2:41 AM [facility] NRBC Absolute <0.01 <0.01 x10(3)/mc L 06/13/2024 2:41 AM [facility] Neutrophil % 48.8 % 06/13/2024 2:41 AM [facility] Neutrophil Absolute (ANC) - Automated 4.87 1.70 - 6.10 x10(3)/mc L 06/13/2024 2:41 AM [facility] Lymph % 35.3 % 06/13/2024 2:41 AM [facility] Lymph Absolute 3.52(H) 0.90 - 3.20 x10(3)/mc L 06/13/2024 2:41 AM [facility] Monocyte % 10.1 % 06/13/2024 2:41 AM [facility] Monocyte Absolute 1.01(H) 0.30 - 0.90 x10(3)/mc L 06/13/2024 2:41 AM [facility] Eos % 4.4 % 06/13/2024 2:41 AM [facility] Eos Absolute 0.44(H) 0.00 - 0.40 x10(3)/mc L 06/13/2024 2:41 AM [facility] Basophil % 0.9 % 06/13/2024 2:41 AM [facility] Baso Absolute 0.09 0.00 - 0.10 x10(3)/mc L 06/13/2024 2:41 AM EST [facility] Immature Gran % 0.5 % 2:41 AM [facility] Immature Gran Absolute 0.05(H) 0.00 - 0.04 x10(3)/mc L 06/13/2024 2:41 AM EST [facility] Blood VENOUS BLOOD SPECIMEN / Unknown Venipuncture / Unknown 06/13/2024 2:26 AM EST 06/13/2024 2:32 AM EST Shahnaz Scanlon MD HEMATOLOGY ORDERABLE S [facility] [place] [address] * Magnesium (06/13/2024 2:26 AM EST) Magnesium 0.78 0.69 - 1.07 mMol/L 06/13/2024 2:58 AM [facility] Blood VENOUS BLOOD SPECIMEN / Unknown Venipuncture / Unknown 06/13/2024 2:26 AM EST 06/13/2024 2:31 AM EST Shahnaz Scanlon MD CHEMISTRY ORDERABLES [facility] [address] * (ABNORMAL) Basic Metabolic Panel (06/13/2024 2:26 AM EST) Glucose 121 65 - 199 mg/dL 06/13/2024 2:58 AM EST [facility] Comment:Glucose Concentratio n >=200 mg/dL plus symptoms is consistent with Diabetes Mellitus. Blood Urea Nitrogen 21(H) 10 - 20 mg/dL 06/13/2024 2:58 AM EST [facility] Creatinine 1.07 0.80 - 1.50 mg/dL 06/13/2024 2:58 AM [facility] Sodium 136 135 - 145 mMol/L 06/13/2024 2:58 AM [facility] Potassium 3.9 3.5 - 5.0 mMol/L 06/13/2024 2:58 AM [facility] Chloride 99 98 - 107 mMol/L 06/13/2024 2:58 AM [facility] Carbon Dioxide 27 22 - 31 mMol/L 06/13/2024 2:58 AM [facility] Anion Gap 10 5 - 15 mMol/L 06/13/2024 2:58 AM [facility] Calcium 9.7 8.5 - 10.5 mg/dL 06/13/2024 2:58 AM [facility] Est Glomerular Filtration Rate - Male 76 mL/min/1. 73 m?? 06/13/2024 2:58 AM [facility] Comment: This [...] AM EST Shahnaz Scanlon MD CHEMISTRY ORDERABLES [facility] [place] [address] * POC, GLUCOSE (06/12/2024 11:53 PM EST) [facility] Signature Glucometer, POC 141 65 - 199 mg/dL 06/12/2024 11:54 PM EST [facility] Comment:Supplemental ranges: <140 mg/dL before meals <180 mg/dL all other times of the day. Blood CAPILLARY BLOOD / Unknown 06/12/2024 11:53 PM EST 06/12/2024 11:54 PM EST Ethel Carrillo MD POINT OF CARE TEST O NIKA Performing Organization Address City/[facility]/ZIP Co de Phone Number [facility] [place] [address] * POC, GLUCOSE (06/12/2024 7:32 PM EST) Glucometer, POC 158 65 - 199 mg/dL 06/12/2024 7:32 PM EST [facility] Comment:Supplemental ranges: <140 mg/dL before meals <180 mg/dL all other times of the day. Blood CAPILLARY BLOOD / Unknown 06/12/2024 7:32 PM EST 06/12/2024 7:32 PM EST Ethel Carrillo MD POINT OF CARE TEST O NIKA Performing Organization Address [facility] Co de Phone Number [facility] [place] [address] * POC, GLUCOSE (06/12/2024 3:41 PM EST) Glucometer, POC 113 65 - 199 mg/dL 06/12/2024 3:41 PM EST [facility] Comment:Supplemental ranges: <140 mg/dL before meals <180 mg/dL all other times of the day. Blood CAPILLARY BLOOD / Unknown 06/12/2024 3:41 PM EST 06/12/2024 3:41 PM EST Ethel Carrillo MD POINT OF CARE TEST O NIKA Performing Organization Address City/[facility] Co de Phone Number [facility] [place] [address] * Potassium (06/12/2024 2:19 PM EST) Potassium 4.5 3.5 - 5.0 mMol/L 06/12/2024 2:45 PM EST [facility] Blood VENOUS BLOOD SPECIMEN / Unknown Venipuncture / Unknown 06/12/2024 2:19 PM EST 06/12/2024 2:23 PM EST Shahnaz Scanlon MD CHEMISTRY ORDERABLES [facility] [place] [address] * (ABNORMAL) POC, GLUCOSE (06/12/2024 11:21 AM EST) Glucometer, POC 207(H) 65 - 199 mg/dL 06/12/2024 11:21 AM EST [facility] Comment:Supplemental ranges: <140 mg/dL before meals <180 mg/dL all other times of the day. Blood CAPILLARY BLOOD / Unknown 06/12/2024 11:21 AM EST 06/12/2024 11:22 AM EST Ethel Carrillo MD POINT OF CARE TEST O RDERABLES [facility] [place] [address] * POC, GLUCOSE (06/12/2024 8:00 AM EST) Glucometer, POC 169 65 - 199 mg/dL 06/12/2024 8:01 AM EST [facility] Comment:Supplemental ranges: <140 mg/dL before meals <180 mg/dL all other times of the day. Blood CAPILLARY BLOOD / Unknown 06/12/2024 8:00 AM EST 06/12/2024 8:01 AM EST Ethel Carrillo MD POINT OF CARE TEST O RDERABLES [facility] [place] [address] * POC, GLUCOSE (06/12/2024 4:25 AM EST) Pathologist [facility] Glucometer, POC 132 65 - 199 mg/dL 06/12/2024 4:26 AM EST [facility] Comment:Supplemental ranges: <140 mg/dL before meals <180 mg/dL all other times of the day. Blood CAPILLARY BLOOD / Unknown 06/12/2024 4:25 AM EST 06/12/2024 4:26 AM EST Ethel Carrillo MD POINT OF CARE TEST O RDERABLES Performing Organization Address [facility] Co de Phone Number [facility] [place] [address] * Heparin (unfractionated) Level (06/12/2024 3:03 AM EST) [facility] UF Heparin 0.55 IU/mL 06/12/2024 3:44 AM EST [facility] Comment: Heparin (anti-Xa) levels should [...] S Performing Organization Address [facility] Co de Phone Number [facility] [place] [address] * (ABNORMAL) CBC (with Diff) (06/12/2024 3:03 AM EST) [facility] White Blood Cell 9.69(H) 4.00 - 9.50 x10(3)/mc L 06/12/2024 3:36 AM [facility] Red Blood Cell 5.05 4.58 - 5.54 x10(6)/mc L 06/12/2024 3:36 AM [facility] Hemoglobin 15.2 13.7 - 16.5 g/dL 06/12/2024 3:36 AM [facility] Hematocrit 46.6 40.5 - 48.5 % 06/12/2024 3:36 AM [facility] Mean Cell Volume 92.3 82.9 - 93.1 fL 06/12/2024 3:36 AM [facility] Mean Cell Hemoglobin 30.1 27.5 - 32.1 pg 06/12/2024 3:36 AM [facility] Mean Cell Hemoglobin Concentration 32.6 32.0 - 35.7 g/dL 06/12/2024 3:36 AM [facility] Platelet 194 145 - 357 x10(3)/mc L 06/12/2024 3:36 AM [facility] Mean Platelet Volume 10.1 7.6 - 12.9 fL 06/12/2024 3:36 AM [facility] RDW Standard Deviation 47.7(H) 36.0 - 45.0 fL 06/12/2024 3:36 AM [facility] RDW coefficient of variation 14.0(H) 11.4 - 13.8 % 06/12/2024 3:36 AM [facility] NRBC% auto 0.0 % 06/12/2024 3:36 AM [facility] NRBC Absolute <0.01 <0.01 x10(3)/mc L 06/12/2024 3:36 AM [facility] Neutrophil % 49.9 % 06/12/2024 3:36 AM [facility] Neutrophil Absolute (ANC) - Automated 4.82 1.70 - 6.10 x10(3)/mc L 06/12/2024 3:36 AM [facility] Lymph % 33.5 % 06/12/2024 3:36 AM [facility] Lymph Absolute 3.25(H) 0.90 - 3.20 x10(3)/mc L 06/12/2024 3:36 AM [facility] Monocyte % 11.1 % 06/12/2024 3:36 AM [facility] Monocyte Absolute 1.08(H) 0.30 - 0.90 x10(3)/mc L 06/12/2024 3:36 AM [facility] Eos % 4.1 % 06/12/2024 3:36 AM [facility] Eos Absolute 0.40 0.00 - 0.40 x10(3)/mc L 06/12/2024 3:36 AM [facility] Basophil % 0.8 % 06/12/2024 3:36 AM [facility] Baso Absolute 0.08 0.00 - 0.10 x10(3)/mc L 06/12/2024 3:36 AM [facility] Immature Gran % 0.6 % 3:36 AM [facility] Immature Gran Absolute 0.06(H) 0.00 - 0.04 x10(3)/mc L 06/12/2024 3:36 AM [facility] Blood VENOUS BLOOD SPECIMEN / Unknown Venipuncture / Unknown 06/12/2024 3:03 AM EST 06/12/2024 3:30 AM EST Shahnaz Scanlon MD HEMATOLOGY ORDERABLE S [facility] [place] [address] * Magnesium (06/12/2024 3:03 AM EST) Magnesium 0.79 0.69 - 1.07 mMol/L 06/12/2024 4:01 AM [facility] Blood VENOUS BLOOD SPECIMEN / Unknown Venipuncture / Unknown 06/12/2024 3:03 AM EST 06/12/2024 3:30 AM EST Shahnaz Scanlon MD CHEMISTRY ORDERABLES [facility] [place] [address] * (ABNORMAL) Basic Metabolic Panel (06/12/2024 3:03 AM EST) Glucose 132 65 - 199 mg/dL 06/12/2024 4:01 AM [facility] Comment:Glucose Concentratio n >=200 mg/dL plus symptoms is consistent with Diabetes Mellitus. Blood Urea Nitrogen 23(H) 10 - 20 mg/dL 06/12/2024 4:01 AM [facility] Creatinine 1.15 0.80 - 1.50 mg/dL 06/12/2024 4:01 AM [facility] Sodium 138 135 - 145 mMol/L 06/12/2024 4:01 AM [facility] Potassium 3.8 3.5 - 5.0 mMol/L 06/12/2024 4:01 AM [facility] Chloride 98 98 - 107 mMol/L 06/12/2024 4:01 AM [facility] Carbon Dioxide 29 22 - 31 mMol/L 06/12/2024 4:01 AM [facility] Anion Gap 11 5 - 15 mMol/L 06/12/2024 4:01 AM [facility] Calcium 9.5 8.5 - 10.5 mg/dL 06/12/2024 4:01 AM [facility] Est Glomerular Filtration Rate - Male 70 mL/min/1. 73 m?? 06/12/2024 4:01 AM [facility] Comment: This [...] ORDERABLES Performing Organization Address [facility] Co de Phone Number [facility] [place] [address] * POC, GLUCOSE (06/11/2024 11:56 PM EST) Glucometer, POC 135 65 - 199 mg/dL 06/11/2024 11:56 PM EST [facility] Comment:Supplemental ranges: <140 mg/dL before meals <180 mg/dL all other times of the day. Blood CAPILLARY BLOOD / Unknown 06/11/2024 11:56 PM EST 06/11/2024 11:56 PM EST Ethel Carrillo MD POINT OF CARE TEST O RDERABLES Performing Organization Address [facility]/ZIP Co de Phone Number [facility] [place] [address] * (ABNORMAL) POC, GLUCOSE (06/11/2024 8:25 PM EST) Glucometer, POC 210(H) 65 - 199 mg/dL 06/11/2024 8:26 PM EST [facility] Comment:Supplemental ranges: <140 mg/dL before meals <180 mg/dL all other times of the day. Blood CAPILLARY BLOOD / Unknown 06/11/2024 8:25 PM EST 06/11/2024 8:26 PM EST Ethel Carrillo MD POINT OF CARE TEST O NIKA Performing Organization Address [facility] Co de Phone Number [facility] [place] [address] * POC, GLUCOSE (06/11/2024 4:24 PM EST) Glucometer, POC 81 65 - 199 mg/dL 06/11/2024 4:24 PM EST [facility] Comment:Supplemental ranges: <140 mg/dL before meals <180 mg/dL all other times of the day. Blood CAPILLARY BLOOD / Unknown 06/11/2024 4:24 PM EST 06/11/2024 4:25 PM EST Ethel Carrillo MD POINT OF CARE TEST O NIKA Performing Organization Address [facility] de Phone Number [facility] [place] [address] * (ABNORMAL) POC, GLUCOSE (06/11/2024 11:08 AM EST) Glucometer, POC 233(H) 65 - 199 mg/dL 06/11/2024 11:08 AM EST [facility] Comment:Supplemental ranges: <140 mg/dL before meals <180 mg/dL all other times of the day. Blood CAPILLARY BLOOD / Unknown 06/11/2024 11:08 AM EST 06/11/2024 11:08 AM EST Ethel Carrillo MD POINT OF CARE TEST O NIKA Performing Organization Address [facility] Co de Phone Number [facility] [place] [address] * POC, GLUCOSE (06/11/2024 7:48 AM EST) Glucometer, POC 184 65 - 199 mg/dL 06/11/2024 7:49 AM EST [facility] Comment:Supplemental ranges: <140 mg/dL before meals <180 mg/dL all other times of the day. Blood CAPILLARY BLOOD / Unknown 06/11/2024 7:48 AM EST 06/11/2024 7:49 AM EST Melida Valdes MD POINT OF CARE TEST O RDERABLES Performing Organization Address City/[facility]/ZIP Co de Phone Number [facility] [place] [address] * Heparin (unfractionated) Level (06/11/2024 5:31 AM EST) UF Heparin 0.55 IU/mL 06/11/2024 6:10 AM EST [facility] Comment: Heparin (anti-Xa) levels should [...] EST Shahnaz Scanlon MD HEMATOLOGY ORDERABLE S [facility] [place] [address] * POC, GLUCOSE (06/11/2024 3:57 AM EST) Glucometer, POC 132 65 - 199 mg/dL 06/11/2024 3:58 AM [facility] Comment:Supplemental ranges: <140 mg/dL before meals <180 mg/dL all other times of the day. Blood CAPILLARY BLOOD / Unknown 06/11/2024 3:57 AM EST 06/11/2024 3:58 AM EST Melida Valdes MD POINT OF CARE TEST O RDERABLES [facility] [place] [address] * (ABNORMAL) CBC (with Diff) (06/11/2024 2:13 AM EST) White Blood Cell 9.91(H) 4.00 - 9.50 x10(3)/mc L 06/11/2024 2:26 AM [facility] Red Blood Cell 5.13 4.58 - 5.54 x10(6)/mc L 06/11/2024 2:26 AM [facility] Hemoglobin 15.3 13.7 - 16.5 g/dL 06/11/2024 2:26 AM [facility] Hematocrit 47.5 40.5 - 48.5 % 06/11/2024 2:26 AM [facility] Mean Cell Volume 92.6 82.9 - 93.1 fL 06/11/2024 2:26 AM [facility] Mean Cell Hemoglobin 29.8 27.5 - 32.1 pg 06/11/2024 2:26 AM [facility] Mean Cell Hemoglobin Concentration 32.2 32.0 - 35.7 g/dL 06/11/2024 2:26 AM [facility] Platelet 184 145 - 357 x10(3)/mc L 06/11/2024 2:26 AM [facility] Mean Platelet Volume 9.7 7.6 - 12.9 fL 06/11/2024 2:26 AM [facility] RDW Standard Deviation 48.0(H) 36.0 - 45.0 fL 06/11/2024 2:26 AM [facility] RDW coefficient of variation 14.0(H) 11.4 - 13.8 % 06/11/2024 2:26 AM [facility] NRBC% auto 0.0 % 06/11/2024 2:26 AM [facility] NRBC Absolute <0.01 <0.01 x10(3)/mc L 06/11/2024 2:26 AM [facility] Neutrophil % 50.3 % 06/11/2024 2:26 AM [facility] Neutrophil Absolute (ANC) - Automated 4.98 1.70 - 6.10 x10(3)/mc L 06/11/2024 2:26 AM [facility] Lymph % 33.5 % 06/11/2024 2:26 AM [facility] Lymph Absolute 3.32(H) 0.90 - 3.20 x10(3)/mc L 06/11/2024 2:26 AM [facility] Monocyte % 10.9 % 06/11/2024 2:26 AM [facility] Monocyte Absolute 1.08(H) 0.30 - 0.90 x10(3)/mc L 06/11/2024 2:26 AM [facility] Eos % 4.1 % 06/11/2024 2:26 AM [facility] Eos Absolute 0.41(H) 0.00 - 0.40 x10(3)/mc L 06/11/2024 2:26 AM [facility] Basophil % 0.7 % 06/11/2024 2:26 AM [facility] Baso Absolute 0.07 0.00 - 0.10 x10(3)/mc L 06/11/2024 2:26 AM [facility] Immature Gran % 0.5 % 2:26 AM [facility] Immature Gran Absolute 0.05(H) 0.00 - 0.04 x10(3)/mc L 06/11/2024 2:26 AM EST [facility] Blood VENOUS BLOOD SPECIMEN / Unknown Venipuncture / Unknown 06/11/2024 2:13 AM EST 06/11/2024 2:19 AM EST Shahnaz Scanlon MD HEMATOLOGY ORDERABLE S Performing Organization Address City/[facility]/ZIP Co de Phone Number [facility] [place] [address] * Magnesium (06/11/2024 2:13 AM EST) Magnesium 0.83 0.69 - 1.07 mMol/L 06/11/2024 2:51 AM [facility] Blood VENOUS BLOOD SPECIMEN / Unknown Venipuncture / Unknown 06/11/2024 2:13 AM EST 06/11/2024 2:19 AM EST Shahnaz Scanlon MD CHEMISTRY ORDERABLES [facility] [place] [address] * (ABNORMAL) Basic Metabolic Panel (06/11/2024 2:13 AM EST) Glucose 148 65 - 199 mg/dL 06/11/2024 2:51 AM [facility] Comment:Glucose Concentratio n >=200 mg/dL plus symptoms is consistent with Diabetes Mellitus. Blood Urea Nitrogen 24(H) 10 - 20 mg/dL 06/11/2024 2:51 AM EST [facility] Creatinine 1.06 0.80 - 1.50 mg/dL 06/11/2024 2:51 AM [facility] Sodium 134(L) 135 - 145 mMol/L 06/11/2024 2:51 AM [facility] Potassium 4.1 3.5 - 5.0 mMol/L 06/11/2024 2:51 AM [facility] Chloride 96(L) 98 - 107 mMol/L 06/11/2024 2:51 AM EST [facility] Carbon Dioxide 28 22 - 31 mMol/L 06/11/2024 2:51 AM [facility] Anion Gap 10 5 - 15 mMol/L 06/11/2024 2:51 AM [facility] Calcium 9.4 8.5 - 10.5 mg/dL 06/11/2024 2:51 AM [facility] Est Glomerular Filtration Rate - Male 77 mL/min/1. 73 m?? 06/11/2024 2:51 AM [facility] Comment: This [...] AM EST Shahnaz Scanlon MD CHEMISTRY ORDERABLES [facility] [place] [address] * POC, GLUCOSE (06/11/2024 12:50 AM EST) Glucometer, POC 144 65 - 199 mg/dL 06/11/2024 12:51 AM EST [facility] Comment:Supplemental ranges: <140 mg/dL before meals <180 mg/dL all other times of the day. Blood CAPILLARY BLOOD / Unknown 06/11/2024 12:50 AM EST 06/11/2024 12:51 AM EST Melida Valdes MD POINT OF CARE TEST O NIKA [facility] [place] [address] * (ABNORMAL) POC, GLUCOSE (06/10/2024 7:22 PM EST) Glucometer, POC 236(H) 65 - 199 mg/dL 06/10/2024 7:22 PM EST [facility] Comment:Supplemental ranges: <140 mg/dL before meals <180 mg/dL all other times of the day. Blood CAPILLARY BLOOD / Unknown 06/10/2024 7:22 PM EST 06/10/2024 7:22 PM EST Melida Valdes MD POINT OF CARE TEST Abimael MAHER Performing Organization Address [facility]/ZIP Co de Phone Number [facility] [place] [address] * (ABNORMAL) Blood Gas, Venous (06/10/2024 5:42 PM EST) pH, Venous 7.34 7.32 - 7.42 06/10/2024 5:50 PM EST [facility] PCO2, Venous 52 38 - 58 mmHg 06/10/2024 5:50 PM [facility] PO2, Venous 24 16 - 65 mmHg 06/10/2024 5:50 PM [facility] Bicarbonate, Venous 27.4 22 - 31 mmol/L 06/10/2024 5:50 PM [facility] Base Excess, Venous 1.7(L) 1.9 - 4.5 mmol/L 06/10/2024 5:50 PM [facility] Hemoglobin, Venous 16.8(H) 13.7 - 16.5 g/dL 06/10/2024 5:50 PM [facility] Oxyhemoglobin, Venous 39.0 % 06/10/2024 5:50 PM [facility] Carboxyhemoglobin , Venous 0.3 % 06/10/2024 5:50 PM [facility] Comment: Nonsmokers: 0.5-1.5% COHB ?? Smokers: Variable ??but usually less than 10% ?? Toxic: 20-30% COHB ?? Lethal: Greater than 60% COHB Methemoglobin, Venous 0.5 <=1.5 % 06/10/2024 5:50 PM [facility] Sodium, Venous 137 135 - 145 mmol/L 06/10/2024 5:50 PM [facility] Chloride, Venous 96(L) 98 - 107 mmol/L 06/10/2024 5:50 PM [facility] Potassium, Venous 4.6 3.5 - 5.0 mmol/L 06/10/2024 5:50 PM [facility] Ionized Calcium, Venous 1.23 1.15 - 1.33 mmol/L 06/10/2024 5:50 PM [facility] Glucose, Venous 114 65 - 199 mg/dL 06/10/2024 5:50 PM [facility] Comment:Glucose Concentratio n >=200 mg/dL plus symptoms is consistent with Diabetes Mellitus. Lactate, Venous 1.1 0.5 - 2.2 mmol/L 06/10/2024 5:50 PM [facility] Blood Gas Source Venous 06/10/20 5:50 PM [facility] Blood VENOUS BLOOD SPECIMEN / Unknown Blood Gas Venous / Unknown 06/10/2024 5:42 PM EST 06/10/2024 5:47 PM EST Melida Valdes MD CHEMISTRY ORDERABLES [facility] [place] [address] * POC, GLUCOSE (06/10/2024 5:35 PM EST) [facility] Signature Glucometer, POC 123 65 - 199 mg/dL 06/10/2024 5:35 PM [facility] Comment:Supplemental ranges: <140 mg/dL before meals <180 mg/dL all other times of the day. Blood CAPILLARY BLOOD / Unknown 06/10/2024 5:35 PM EST 06/10/2024 5:35 PM EST Melida Valdes MD POINT OF CARE TEST O NIKA Performing Organization Address City/[facility]/ZIP Co de Phone Number [facility] [place] [address] * (ABNORMAL) POC, GLUCOSE (06/10/2024 11:25 AM EST) Glucometer, POC 216(H) 65 - 199 mg/dL 06/10/2024 11:25 AM EST [facility] Comment:Supplemental ranges: <140 mg/dL before meals <180 mg/dL all other times of the day. Blood CAPILLARY BLOOD / Unknown 06/10/2024 11:25 AM EST 06/10/2024 11:25 AM EST Melida Valdes MD POINT OF CARE TEST O NIKA Performing Organization Address [facility] Co de Phone Number [facility] [place] [address] * (ABNORMAL) POC, GLUCOSE (06/10/2024 7:46 AM EST) Glucometer, POC 206(H) 65 - 199 mg/dL 06/10/2024 7:46 AM EST [facility] Comment:Supplemental ranges: <140 mg/dL before meals <180 mg/dL all other times of the day. Blood CAPILLARY BLOOD / Unknown 06/10/2024 7:46 AM EST 06/10/2024 7:46 AM EST Melida Valdes MD POINT OF CARE TEST O NIKA Performing Organization Address City/[facility] Co de Phone Number [facility] [place] [address] * POC, GLUCOSE (06/10/2024 4:23 AM EST) Glucometer, POC 154 65 - 199 mg/dL 06/10/2024 4:24 AM [facility] Comment:Supplemental ranges: <140 mg/dL before meals <180 mg/dL all other times of the day. Blood CAPILLARY BLOOD / Unknown 06/10/2024 4:23 AM EST 06/10/2024 4:24 AM EST Melida Valdes MD POINT OF CARE TEST O RDERABLES Performing Organization Address City/State/[facility] Co de Phone Number [facility] [place] [address] * (ABNORMAL) CBC (with Diff) (06/10/2024 1:55 AM EST) White Blood Cell 9.00 4.00 - 9.50 x10(3)/mc L 06/10/2024 2:14 AM [facility] Red Blood Cell 5.03 4.58 - 5.54 x10(6)/mc L 06/10/2024 2:14 AM [facility] Hemoglobin 14.9 13.7 - 16.5 g/dL 06/10/2024 2:14 AM [facility] Hematocrit 46.4 40.5 - 48.5 % 06/10/2024 2:14 AM [facility] Mean Cell Volume 92.2 82.9 - 93.1 fL 06/10/2024 2:14 AM [facility] Mean Cell Hemoglobin 29.6 27.5 - 32.1 pg 06/10/2024 2:14 AM [facility] Mean Cell Hemoglobin Concentration 32.1 32.0 - 35.7 g/dL 06/10/2024 2:14 AM [facility] Platelet 191 145 - 357 x10(3)/mc L 06/10/2024 2:14 AM [facility] Mean Platelet Volume 9.7 7.6 - 12.9 fL 06/10/2024 2:14 AM [facility] RDW Standard Deviation 47.4(H) 36.0 - 45.0 fL 06/10/2024 2:14 AM [facility] RDW coefficient of variation 14.1(H) 11.4 - 13.8 % 06/10/2024 2:14 AM [facility] NRBC% auto 0.0 % 06/10/2024 2:14 AM [facility] NRBC Absolute <0.01 <0.01 x10(3)/mc L 06/10/2024 2:14 AM [facility] Neutrophil % 48.7 % 06/10/2024 2:14 AM [facility] Neutrophil Absolute (ANC) - Automated 4.39 1.70 - 6.10 x10(3)/mc L 06/10/2024 2:14 AM [facility] Lymph % 34.9 % 06/10/2024 2:14 AM [facility] Lymph Absolute 3.14 0.90 - 3.20 x10(3)/mc L 06/10/2024 2:14 AM [facility] Monocyte % 11.2 % 06/10/2024 2:14 AM [facility] Monocyte Absolute 1.01(H) 0.30 - 0.90 x10(3)/mc L 06/10/2024 2:14 AM [facility] Eos % 3.6 % 06/10/2024 2:14 AM [facility] Eos Absolute 0.32 0.00 - 0.40 x10(3)/mc L 06/10/2024 2:14 AM [facility] Basophil % 1.0 % 06/10/2024 2:14 AM [facility] Baso Absolute 0.09 0.00 - 0.10 x10(3)/mc L 06/10/2024 2:14 AM [facility] Immature Gran % 0.6 % 2:14 AM [facility] Immature Gran Absolute 0.05(H) 0.00 - 0.04 x10(3)/mc L 06/10/2024 2:14 AM EST [facility] Blood VENOUS BLOOD SPECIMEN / Unknown Venipuncture / Unknown 06/10/2024 1:55 AM EST 06/10/2024 2:05 AM EST Shahnaz Scanlon MD HEMATOLOGY ORDERABLE S Performing Organization Address City/[facility]/ZIP Co de Phone Number [facility] [place] [address] * Magnesium (06/10/2024 1:55 AM EST) Magnesium 0.83 0.69 - 1.07 mMol/L 06/10/2024 2:37 AM [facility] Blood VENOUS BLOOD SPECIMEN / Unknown Venipuncture / Unknown 06/10/2024 1:55 AM EST 06/10/2024 2:05 AM EST Shahnaz Scanlon MD CHEMISTRY ORDERABLES [facility] [place] [address] * (ABNORMAL) Basic Metabolic Panel (06/10/2024 1:55 AM EST) Glucose 140 65 - 199 mg/dL 06/10/2024 2:37 AM [facility] Comment:Glucose Concentratio n >=200 mg/dL plus symptoms is consistent with Diabetes Mellitus. Blood Urea Nitrogen 24(H) 10 - 20 mg/dL 06/10/2024 2:37 AM [facility] Creatinine 1.06 0.80 - 1.50 mg/dL 06/10/2024 2:37 AM [facility] Sodium 138 135 - 145 mMol/L 06/10/2024 2:37 AM [facility] Potassium 4.1 3.5 - 5.0 mMol/L 06/10/2024 2:37 AM [facility] Chloride 100 98 - 107 mMol/L 06/10/2024 2:37 AM [facility] Carbon Dioxide 25 22 - 31 mMol/L 06/10/2024 2:37 AM [facility] Anion Gap 13 5 - 15 mMol/L 06/10/2024 2:37 AM [facility] Calcium 9.5 8.5 - 10.5 mg/dL 06/10/2024 2:37 AM [facility] Est Glomerular Filtration Rate - Male 77 mL/min/1. 73 m?? 06/10/2024 2:37 AM [facility] Comment: This [...] CHEMISTRY ORDERABLES Performing Organization Address City/State/[facility] Co de Phone Number [facility] [place] [address] * Heparin (unfractionated) Level (06/10/2024 1:54 AM EST) UF Heparin 0.56 IU/mL 06/10/2024 2:41 AM [facility] Comment: Heparin (anti-Xa) levels should be [...] Performing Organization Address City/[facility]/ZIP Co de Phone Number [facility] [place] [place] [address] * POC, GLUCOSE (06/10/2024 12:05 AM EST) Glucometer, POC 125 65 - 199 mg/dL 06/10/2024 12:05 AM EST [facility] Comment:Supplemental ranges: <140 mg/dL before meals <180 mg/dL all other times of the day. Blood CAPILLARY BLOOD / Unknown 06/10/2024 12:05 AM EST 06/10/2024 12:05 AM EST Melida Valdes MD POINT OF CARE TEST O RDERABLES Performing Organization Address City/[facility]/ZIP Co de Phone Number [facility] [place] [address] * POC, GLUCOSE (06/09/2024 8:36 PM EST) Glucometer, POC 197 65 - 199 mg/dL 06/09/2024 8:36 PM EST [facility] Comment:Supplemental ranges: <140 mg/dL before meals <180 mg/dL all other times of the day. Blood CAPILLARY BLOOD / Unknown 06/09/2024 8:36 PM EST 06/09/2024 8:36 PM EST Melida Valdes MD POINT OF CARE TEST O NIKA Performing Organization Address [facility] Co de Phone Number [facility] [place] [address] * POC, GLUCOSE (06/09/2024 5:27 PM EST) Glucometer, POC 174 65 - 199 mg/dL 06/09/2024 5:28 PM EST [facility] Comment:Supplemental ranges: <140 mg/dL before meals <180 mg/dL all other times of the day. Blood CAPILLARY BLOOD / Unknown 06/09/2024 5:27 PM EST 06/09/2024 5:28 PM EST Melida Valdes MD POINT OF CARE TEST O NIKA Performing Organization Address [facility] Co de Phone Number [facility] [place] [address] * (ABNORMAL) POC, GLUCOSE (06/09/2024 11:52 AM EST) Glucometer, POC 211(H) 65 - 199 mg/dL 06/09/2024 11:52 AM EST [facility] Comment:Supplemental ranges: <140 mg/dL before meals <180 mg/dL all other times of the day. Blood CAPILLARY BLOOD / Unknown 06/09/2024 11:52 AM EST 06/09/2024 11:52 AM EST Melida Valdes MD POINT OF CARE TEST O NIKA Performing Organization Address City/[facility] Co de Phone Number [facility] [place] [address] * Potassium (06/09/2024 8:25 AM EST) Potassium 4.6 3.5 - 5.0 mMol/L 06/09/2024 10:09 AM EST [facility] Blood VENOUS BLOOD SPECIMEN / Unknown Venipuncture / Unknown 06/09/2024 8:25 AM EST 06/09/2024 8:42 AM EST Shahnaz Scanlon MD CHEMISTRY ORDERABLES Performing Organization Address [facility] Co de Phone Number [facility] [place] [address] * (ABNORMAL) POC, GLUCOSE (06/09/2024 8:10 AM EST) Glucometer, POC 209(H) 65 - 199 mg/dL 06/09/2024 8:10 AM EST [facility] Comment:Supplemental ranges: <140 mg/dL before meals <180 mg/dL all other times of the day. Blood CAPILLARY BLOOD / Unknown 06/09/2024 8:10 AM EST 06/09/2024 8:11 AM EST Melida Valdes MD POINT OF CARE TEST O RDERABLES Performing Organization Address [facility] Co de Phone Number [facility] [place] [address] * POC, GLUCOSE (06/09/2024 4:40 AM EST) Glucometer, POC 131 65 - 199 mg/dL 06/09/2024 4:40 AM EST [facility] Comment:Supplemental ranges: <140 mg/dL before meals <180 mg/dL all other times of the day. Blood CAPILLARY BLOOD / Unknown 06/09/2024 4:40 AM EST 06/09/2024 4:41 AM EST Melida Valdes MD POINT OF CARE TEST O NIKA Performing Organization Address [facility] Co de Phone Number [facility] [place] [address] * Heparin (unfractionated) Level (06/09/2024 2:12 AM EST) UF Heparin 0.55 IU/mL 06/09/2024 2:33 AM EST [facility] Comment: Heparin (anti-Xa) levels should [...] ORDERABLE S Performing Organization Address City/State/[facility] Co de Phone Number [facility] [place] [address] * (ABNORMAL) CBC (with Diff) (06/09/2024 2:12 AM EST) White Blood Cell 9.80(H) 4.00 - 9.50 x10(3)/mc L 06/09/2024 2:44 AM EST [facility] Red Blood Cell 5.18 4.58 - 5.54 x10(6)/mc L 06/09/2024 2:44 AM EST [facility] Hemoglobin 15.5 13.7 - 16.5 g/dL 06/09/2024 2:44 AM EST [facility] Hematocrit 47.4 40.5 - 48.5 % 06/09/2024 2:44 AM [facility] Mean Cell Volume 91.5 82.9 - 93.1 fL 06/09/2024 2:44 AM EST [facility] Mean Cell Hemoglobin 29.9 27.5 - 32.1 pg 06/09/2024 2:44 AM [facility] Mean Cell Hemoglobin Concentration 32.7 32.0 - 35.7 g/dL 06/09/2024 2:44 AM [facility] Platelet 205 145 - 357 x10(3)/mc L 06/09/2024 2:44 AM [facility] Mean Platelet Volume 9.7 7.6 - 12.9 fL 06/09/2024 2:44 AM [facility] RDW Standard Deviation 47.7(H) 36.0 - 45.0 fL 06/09/2024 2:44 AM [facility] RDW coefficient of variation 14.1(H) 11.4 - 13.8 % 06/09/2024 2:44 AM [facility] NRBC% auto 0.0 % 06/09/2024 2:44 AM [facility] NRBC Absolute <0.01 <0.01 x10(3)/mc L 06/09/2024 2:44 AM [facility] Neutrophil % 53.0 % 06/09/2024 2:44 AM [facility] Neutrophil Absolute (ANC) - Automated 5.19 1.70 - 6.10 x10(3)/mc L 06/09/2024 2:44 AM [facility] Lymph % 31.6 % 06/09/2024 2:44 AM [facility] Lymph Absolute 3.10 0.90 - 3.20 x10(3)/mc L 06/09/2024 2:44 AM [facility] Monocyte % 11.0 % 06/09/2024 2:44 AM [facility] Monocyte Absolute 1.08(H) 0.30 - 0.90 x10(3)/mc L 06/09/2024 2:44 AM [facility] Eos % 2.9 % 06/09/2024 2:44 AM [facility] Eos Absolute 0.28 0.00 - 0.40 x10(3)/mc L 06/09/2024 2:44 AM [facility] Basophil % 0.9 % 06/09/2024 2:44 AM EST [facility] Baso Absolute 0.09 0.00 - 0.10 x10(3)/mc L 06/09/2024 2:44 AM EST [facility] Immature Gran % 0.6 % 2:44 AM [facility] Immature Gran Absolute 0.06(H) 0.00 - 0.04 x10(3)/mc L 06/09/2024 2:44 AM EST [facility] Blood VENOUS BLOOD SPECIMEN / Unknown Venipuncture / Unknown 06/09/2024 2:12 AM EST 06/09/2024 2:21 AM EST Shahnaz Scanlon MD HEMATOLOGY ORDERABLE S Performing Organization Address City/[facility]/ZIP Co de Phone Number [facility] [place] [address] * Magnesium (06/09/2024 2:12 AM EST) Magnesium 0.83 0.69 - 1.07 mMol/L 06/09/2024 2:52 AM [facility] Blood VENOUS BLOOD SPECIMEN / Unknown Venipuncture / Unknown 06/09/2024 2:12 AM EST 06/09/2024 2:22 AM EST Shahnaz Scanlon MD CHEMISTRY ORDERABLES Performing Organization Address City/[facility]/ZIP Co de Phone Number [facility] [place] [address] * (ABNORMAL) Basic Metabolic Panel (06/09/2024 2:12 AM EST) Glucose 147 65 - 199 mg/dL 06/09/2024 2:52 AM [facility] Comment:Glucose Concentratio n >=200 mg/dL plus symptoms is consistent with Diabetes Mellitus. Blood Urea Nitrogen 24(H) 10 - 20 mg/dL 06/09/2024 2:52 AM EST [facility] Creatinine 1.11 0.80 - 1.50 mg/dL 06/09/2024 2:52 AM EST [facility] Sodium 136 135 - 145 mMol/L 06/09/2024 2:52 AM EST [facility] Potassium 3.9 3.5 - 5.0 mMol/L 06/09/2024 2:52 AM EST [facility] Chloride 98 98 - 107 mMol/L 06/09/2024 2:52 AM EST [facility] Carbon Dioxide 27 22 - 31 mMol/L 06/09/2024 2:52 AM EST [facility] Anion Gap 11 5 - 15 mMol/L 06/09/2024 2:52 AM EST [facility] Calcium 9.7 8.5 - 10.5 mg/dL 06/09/2024 2:52 AM EST [facility] Est Glomerular Filtration Rate - Male 73 mL/min/1. 73 m?? 06/09/2024 2:52 AM EST [facility] Comment: This patient's estimated GFR [...] AM EST Shahnaz Scanlon MD CHEMISTRY ORDERABLES [facility] [place] [address] * POC, GLUCOSE (06/09/2024 12:34 AM EST) Glucometer, POC 186 65 - 199 mg/dL 06/09/2024 12:34 AM EST [facility] Comment:Supplemental ranges: <140 mg/dL before meals <180 mg/dL all other times of the day. Blood CAPILLARY BLOOD / Unknown 06/09/2024 12:34 AM EST 06/09/2024 12:34 AM EST Melida Valdes MD POINT OF CARE TEST O NIKA Performing Organization Address City/[facility]/ZIP Co de Phone Number [facility] [place] [place] [address] * POC, GLUCOSE (06/08/2024 8:27 PM EST) Glucometer, POC 176 65 - 199 mg/dL 06/08/2024 8:28 PM EST [facility] Comment:Supplemental ranges: <140 mg/dL before meals <180 mg/dL all other times of the day. Blood CAPILLARY BLOOD / Unknown 06/08/2024 8:27 PM EST 06/08/2024 8:28 PM EST Melida Valdes MD POINT OF CARE TEST O NIKA Performing Organization Address [facility] Co de Phone Number [facility] [place] [address] * POC, GLUCOSE (06/08/2024 4:16 PM EST) Glucometer, POC 159 65 - 199 mg/dL 06/08/2024 4:16 PM EST [facility] Comment:Supplemental ranges: <140 mg/dL before meals <180 mg/dL all other times of the day. Blood CAPILLARY BLOOD / Unknown 06/08/2024 4:16 PM EST 06/08/2024 4:16 PM EST Melida Valdes MD POINT OF CARE TEST O NIKA Performing Organization Address City/[facility]/ZIP Co de Phone Number [facility] [place] [address] * (ABNORMAL) POC, GLUCOSE (06/08/2024 12:35 PM EST) Glucometer, POC 226(H) 65 - 199 mg/dL 06/08/2024 12:35 PM EST [facility] Comment:Supplemental ranges: <140 mg/dL before meals <180 mg/dL all other times of the day. Blood CAPILLARY BLOOD / Unknown 06/08/2024 12:35 PM EST 06/08/2024 12:35 PM EST Melida Valdes MD POINT OF CARE TEST O RDBECKIE Performing Organization Address City/[facility]/ZIP Co de Phone Number [facility] [place] [address] * POC, GLUCOSE (06/08/2024 8:10 AM EST) Glucometer, POC 190 65 - 199 mg/dL 06/08/2024 8:14 AM EST [facility] Comment:Supplemental ranges: <140 mg/dL before meals <180 mg/dL all other times of the day. Blood CAPILLARY BLOOD / Unknown 06/08/2024 8:10 AM EST 06/08/2024 8:14 AM EST Melida Valdes MD POINT OF CARE TEST O RDERAPIETER [facility] [place] [address] * POC, GLUCOSE (06/08/2024 4:09 AM EST) Glucometer, POC 151 65 - 199 mg/dL 06/08/2024 4:10 AM EST [facility] Comment:Supplemental ranges: <140 mg/dL before meals <180 mg/dL all other times of the day. Blood CAPILLARY BLOOD / Unknown 06/08/2024 4:09 AM EST 06/08/2024 4:10 AM EST Melida Valdes MD POINT OF CARE TEST O RDERABLES Performing Organization Address [facility]/ZIP Co de Phone Number [facility] [place] [address] * Heparin (unfractionated) Level (06/08/2024 3:21 AM EST) UF Heparin 0.46 IU/mL 06/08/2024 3:41 AM EST [facility] Comment: Heparin (anti-Xa) levels should [...] Performing Organization Address City/[facility]/ZIP Co de Phone Number [facility] [place] [address] * (ABNORMAL) CBC (with Diff) (06/08/2024 3:21 AM EST) White Blood Cell 9.92(H) 4.00 - 9.50 x10(3)/mc L 06/08/2024 3:34 AM EST [facility] Red Blood Cell 5.09 4.58 - 5.54 x10(6)/mc L 06/08/2024 3:34 AM EST [facility] Hemoglobin 15.1 13.7 - 16.5 g/dL 06/08/2024 3:34 AM [facility] Hematocrit 46.7 40.5 - 48.5 % 06/08/2024 3:34 AM [facility] Mean Cell Volume 91.7 82.9 - 93.1 fL 06/08/2024 3:34 AM [facility] Mean Cell Hemoglobin 29.7 27.5 - 32.1 pg 06/08/2024 3:34 AM [facility] Mean Cell Hemoglobin Concentration 32.3 32.0 - 35.7 g/dL 06/08/2024 3:34 AM [facility] Platelet 203 145 - 357 x10(3)/mc L 06/08/2024 3:34 AM [facility] Mean Platelet Volume 9.4 7.6 - 12.9 fL 06/08/2024 3:34 AM [facility] RDW Standard Deviation 46.9(H) 36.0 - 45.0 fL 06/08/2024 3:34 AM [facility] RDW coefficient of variation 13.8 11.4 - 13.8 % 06/08/2024 3:34 AM [facility] NRBC% auto 0.0 % 06/08/2024 3:34 AM [facility] NRBC Absolute <0.01 <0.01 x10(3)/mc L 06/08/2024 3:34 AM [facility] Neutrophil % 56.8 % 06/08/2024 3:34 AM [facility] Neutrophil Absolute (ANC) - Automated 5.63 1.70 - 6.10 x10(3)/mc L 06/08/2024 3:34 AM [facility] Lymph % 27.3 % 06/08/2024 3:34 AM [facility] Lymph Absolute 2.71 0.90 - 3.20 x10(3)/mc L 06/08/2024 3:34 AM [facility] Monocyte % 11.2 % 06/08/2024 3:34 AM [facility] Monocyte Absolute 1.11(H) 0.30 - 0.90 x10(3)/mc L 06/08/2024 3:34 AM [facility] Eos % 3.4 % 06/08/2024 3:34 AM [facility] Eos Absolute 0.34 0.00 - 0.40 x10(3)/mc L 06/08/2024 3:34 AM [facility] Basophil % 0.8 % 06/08/2024 3:34 AM [facility] Baso Absolute 0.08 0.00 - 0.10 x10(3)/mc L 06/08/2024 3:34 AM [facility] Immature Gran % 0.5 % 3:34 AM [facility] Immature Gran Absolute 0.05(H) 0.00 - 0.04 x10(3)/mc L 06/08/2024 3:34 AM [facility] Blood VENOUS BLOOD SPECIMEN / Unknown Venipuncture / Unknown 06/08/2024 3:21 AM EST 06/08/2024 3:27 AM EST Shahnaz Scanlon MD [place] [address] * Magnesium (06/08/2024 3:21 AM EST) Magnesium 0.84 0.69 - 1.07 mMol/L 06/08/2024 3:59 AM [facility] Blood VENOUS BLOOD SPECIMEN / Unknown Venipuncture / Unknown 06/08/2024 3:21 AM EST 06/08/2024 3:27 AM EST Shahnaz Scanlon MD CHEMISTRY ORDERABLES [facility] [place] [address] * (ABNORMAL) Basic Metabolic Panel (06/08/2024 3:21 AM EST) Glucose 173 65 - 199 mg/dL 06/08/2024 3:59 AM [facility] Comment:Glucose Concentratio n >=200 mg/dL plus symptoms is consistent with Diabetes Mellitus. Blood Urea Nitrogen 25(H) 10 - 20 mg/dL 06/08/2024 3:59 AM [facility] Creatinine 1.09 0.80 - 1.50 mg/dL 06/08/2024 3:59 AM [facility] Sodium 135 135 - 145 mMol/L 06/08/2024 3:59 AM [facility] Potassium 4.2 3.5 - 5.0 mMol/L 06/08/2024 3:59 AM [facility] Chloride 98 98 - 107 mMol/L 06/08/2024 3:59 AM [facility] Carbon Dioxide 25 22 - 31 mMol/L 06/08/2024 3:59 AM [facility] Anion Gap 12 5 - 15 mMol/L 06/08/2024 3:59 AM [facility] Calcium 9.4 8.5 - 10.5 mg/dL 06/08/2024 3:59 AM [facility] Est Glomerular Filtration Rate - Male 74 mL/min/1. 73 m?? 06/08/2024 3:59 AM [facility] Comment: This [...] ORDERABLES Performing Organization Address [facility]/ZIP Co de Phone Number [facility] [place] [address] * POC, GLUCOSE (06/07/2024 11:57 PM EST) Glucometer, POC 188 65 - 199 mg/dL 06/07/2024 11:57 PM EST [facility] Comment:Supplemental ranges: <140 mg/dL before meals <180 mg/dL all other times of the day. Blood CAPILLARY BLOOD / Unknown 06/07/2024 11:57 PM EST 06/07/2024 11:58 PM EST Melida Valdes MD POINT OF CARE TEST O NIKA Performing Organization Address [facility] Co de Phone Number [facility] [place] [address] * POC, GLUCOSE (06/07/2024 8:05 PM EST) Glucometer, POC 118 65 - 199 mg/dL 06/07/2024 8:06 PM EST [facility] Comment:Supplemental ranges: <140 mg/dL before meals <180 mg/dL all other times of the day. Blood CAPILLARY BLOOD / Unknown 06/07/2024 8:05 PM EST 06/07/2024 8:06 PM EST Melida Valdes MD POINT OF CARE TEST O NIKA Performing Organization Address City/[facility]/ZIP Co de Phone Number [facility] [place] [address] * Potassium (06/07/2024 5:22 PM EST) Potassium 4.6 3.5 - 5.0 mMol/L 06/07/2024 5:59 PM EST [facility] Blood VENOUS BLOOD SPECIMEN / Unknown Venipuncture / Unknown 06/07/2024 5:22 PM EST 06/07/2024 5:26 PM EST Shahnaz Scanlon MD CHEMISTRY ORDERABLES Performing Organization Address [facility] Co de Phone Number [facility] [place] [address] * POC, GLUCOSE (06/07/2024 4:31 PM EST) Glucometer, POC 174 65 - 199 mg/dL 06/07/2024 4:34 PM EST [facility] Comment:Supplemental ranges: <140 mg/dL before meals <180 mg/dL all other times of the day. Blood CAPILLARY BLOOD / Unknown 06/07/2024 4:31 PM EST 06/07/2024 4:34 PM EST Melida Valdes MD POINT OF CARE TEST O RDERABLES Performing Organization Address [facility] Co de Phone Number [facility] [place] [address] * MRI Cardiac Morphology Function wwo Contrast (06/07/2024 1:10 PM EST) WORKSTATION ID [id number] DH RAD Anatomical Region Laterality Modality Magnetic [...] - Mildly dilated left ventricle size with longitkv-oz-hphxacgq decreased LV systolic function. ??LV ejection fraction [...] who have questions please contact the health property caretaker that requested your imaging first. ? [...] VENTRICLE: Mildly dilated left ventricle size with rfnzxsnn-hr-zwprepqv decreased LV systolic function. ??LV ejection fraction [...] VENTRICLE: Mildly dilated left ventricle size with ieenbybv-va-omfehmbt decreasedLV systolic function. LV ejection fraction is [...] - Mildly dilated left ventricle size with gznqwdaf-dl-augwuurf decreasedLV systolic function. LV ejection fraction is [...] patients who have questions please contactthe health property caretaker that requested your imaging first. Delroy Fofana MD IMG MRI ORDERABLES * (ABNORMAL) POC, GLUCOSE (06/07/2024 11:05 AM EST) Glucometer, POC 221(H) 65 - 199 mg/dL 06/07/2024 11:06 AM EST [facility] Comment:Supplemental ranges: <140 mg/dL before meals <180 mg/dL all other times of the day. Blood CAPILLARY BLOOD / Unknown 06/07/2024 11:05 AM EST 06/07/2024 11:06 AM EST Melida Valdes MD POINT OF CARE TEST O NIKA Performing Organization Address City/[facility] Co de Phone Number [facility] [place] [address] * (ABNORMAL) POC, GLUCOSE (06/07/2024 11:03 AM EST) [facility] Signature Glucometer, POC 250(H) 65 - 199 mg/dL 06/07/2024 11:04 AM EST [facility] Comment:Supplemental ranges: <140 mg/dL before meals <180 mg/dL all other times of the day. Blood CAPILLARY BLOOD / Unknown 06/07/2024 11:03 AM EST 06/07/2024 11:04 AM EST Melida Valdes MD POINT OF CARE TEST O NIKA [facility] [place] [address] * Potassium (06/07/2024 9:44 AM EST) [facility] Signature Potassium 4.7 3.5 - 5.0 mMol/L 06/07/2024 10:23 AM EST [facility] Blood VENOUS BLOOD SPECIMEN / Unknown Venipuncture / Unknown 06/07/2024 9:44 AM EST 06/07/2024 9:57 AM EST Shahnaz Scanlon MD CHEMISTRY ORDERABLES Performing Organization Address [facility]/ZIP Co de Phone Number [facility] [place] [address] * POC, GLUCOSE (06/07/2024 7:45 AM EST) Glucometer, POC 175 65 - 199 mg/dL 06/07/2024 7:45 AM EST [facility] Comment:Supplemental ranges: <140 mg/dL before meals <180 mg/dL all other times of the day. Blood CAPILLARY BLOOD / Unknown 06/07/2024 7:45 AM EST 06/07/2024 7:46 AM EST Melida Valdes MD POINT OF CARE TEST O RDERABLES Performing Organization Address [facility] Co de Phone Number [facility] [place] [address] * XR Chest PA & Lateral (Generic) (06/07/2024 7:03 AM EST) WORKSTATION ID [id number] RAD Anatomical Region Laterality Modality Chest N/A [...] who have questions please contact the health property caretaker that requested your imaging first. ? [...] patients who have questions please contactthe health property caretaker that requested your imaging first. Shahnaz Scanlon MD IMG DX ORDERABLES * POC, GLUCOSE (06/07/2024 4:25 AM EST) Glucometer, POC 127 65 - 199 mg/dL 06/07/2024 4:26 AM EST [facility] Comment:Supplemental ranges: <140 mg/dL before meals <180 mg/dL all other times of the day. Blood CAPILLARY BLOOD / Unknown 06/07/2024 4:25 AM EST 06/07/2024 4:26 AM EST Melida Valdes MD POINT OF CARE TEST O RDERABLES Performing Organization Address [facility] Co de Phone Number [facility] [place] [address] * Heparin (unfractionated) Level (06/07/2024 2:41 AM EST) Pathologist [facility] UF Heparin 0.45 IU/mL 06/07/2024 3:03 AM EST [facility] Comment: Heparin (anti-Xa) levels should [...] Performing Organization Address City/[facility]/ZIP Co de Phone Number [facility] [place] [address] * (ABNORMAL) CBC (with Diff) (06/07/2024 2:41 AM EST) [facility] White Blood Cell 10.06(H) 4.00 - 9.50 x10(3)/mc L 06/07/2024 2:58 AM [facility] Red Blood Cell 5.02 4.58 - 5.54 x10(6)/mc L 06/07/2024 2:58 AM [facility] Hemoglobin 14.8 13.7 - 16.5 g/dL 06/07/2024 2:58 AM [facility] Hematocrit 46.2 40.5 - 48.5 % 06/07/2024 2:58 AM [facility] Mean Cell Volume 92.0 82.9 - 93.1 fL 06/07/2024 2:58 AM [facility] Mean Cell Hemoglobin 29.5 27.5 - 32.1 pg 06/07/2024 2:58 AM [facility] Mean Cell Hemoglobin Concentration 32.0 32.0 - 35.7 g/dL 06/07/2024 2:58 AM [facility] Platelet 202 145 - 357 x10(3)/mc L 06/07/2024 2:58 AM [facility] Mean Platelet Volume 9.6 7.6 - 12.9 fL 06/07/2024 2:58 AM [facility] RDW Standard Deviation 46.3(H) 36.0 - 45.0 fL 06/07/2024 2:58 AM [facility] RDW coefficient of variation 13.8 11.4 - 13.8 % 06/07/2024 2:58 AM [facility] NRBC% auto 0.0 % 06/07/2024 2:58 AM [facility] NRBC Absolute <0.01 <0.01 x10(3)/mc L 06/07/2024 2:58 AM [facility] Neutrophil % 55.9 % 06/07/2024 2:58 AM [facility] Neutrophil Absolute (ANC) - Automated 5.62 1.70 - 6.10 x10(3)/mc L 06/07/2024 2:58 AM [facility] Lymph % 28.3 % 06/07/2024 2:58 AM [facility] Lymph Absolute 2.85 0.90 - 3.20 x10(3)/mc L 06/07/2024 2:58 AM [facility] Monocyte % 10.8 % 06/07/2024 2:58 AM [facility] Monocyte Absolute 1.09(H) 0.30 - 0.90 x10(3)/mc L 06/07/2024 2:58 AM [facility] Eos % 3.6 % 06/07/2024 2:58 AM [facility] Eos Absolute 0.36 0.00 - 0.40 x10(3)/mc L 06/07/2024 2:58 AM EST [facility] Basophil % 0.8 % 06/07/2024 2:58 AM [facility] Baso Absolute 0.08 0.00 - 0.10 x10(3)/mc L 06/07/2024 2:58 AM [facility] Immature Gran % 0.6 % 2:58 AM [facility] Immature Gran Absolute 0.06(H) 0.00 - 0.04 x10(3)/mc L 06/07/2024 2:58 AM [facility] Blood VENOUS BLOOD SPECIMEN / Unknown Venipuncture / Unknown 06/07/2024 2:41 AM EST 06/07/2024 2:52 AM EST Shahnaz Scanlon MD HEMATOLOGY ORDERABLE S [facility] [place] [address] * Magnesium (06/07/2024 2:41 AM EST) Magnesium 0.92 0.69 - 1.07 mMol/L 06/07/2024 3:25 AM EST [facility] Blood VENOUS BLOOD SPECIMEN / Unknown Venipuncture / Unknown 06/07/2024 2:41 AM EST 06/07/2024 2:51 AM EST Shahnaz Scanlon MD CHEMISTRY ORDERABLES [facility] [place] [address] * (ABNORMAL) Basic Metabolic Panel (06/07/2024 2:41 AM EST) Glucose 140 65 - 199 mg/dL 06/07/2024 3:25 AM [facility] Comment:Glucose Concentratio n >=200 mg/dL plus symptoms is consistent with Diabetes Mellitus. Blood Urea Nitrogen 26(H) 10 - 20 mg/dL 06/07/2024 3:25 AM [facility] Creatinine 1.06 0.80 - 1.50 mg/dL 06/07/2024 3:25 AM [facility] Sodium 136 135 - 145 mMol/L 06/07/2024 3:25 AM [facility] Potassium 3.8 3.5 - 5.0 mMol/L 06/07/2024 3:25 AM [facility] Chloride 98 98 - 107 mMol/L 06/07/2024 3:25 AM [facility] Carbon Dioxide 28 22 - 31 mMol/L 06/07/2024 3:25 AM [facility] Anion Gap 10 5 - 15 mMol/L 06/07/2024 3:25 AM [facility] Calcium 9.4 8.5 - 10.5 mg/dL 06/07/2024 3:25 AM [facility] Est Glomerular Filtration Rate - Male 77 mL/min/1. 73 m?? 06/07/2024 3:25 AM [facility] Comment: This [...] ORDERABLES Performing Organization Address [facility] Co de Phone Number [facility] [place] [address] * POC, GLUCOSE (06/07/2024 12:08 AM EST) Glucometer, POC 182 65 - 199 mg/dL 06/07/2024 12:09 AM EST [facility] Comment:Supplemental ranges: <140 mg/dL before meals <180 mg/dL all other times of the day. Blood CAPILLARY BLOOD / Unknown 06/07/2024 12:08 AM EST 06/07/2024 12:09 AM EST Melida Valdes MD POINT OF CARE TEST O RDERABLES Performing Organization Address City/[facility]/ZIP Co de Phone Number [facility] [place] [address] * POC, GLUCOSE (06/06/2024 8:18 PM EST) Glucometer, POC 143 65 - 199 mg/dL 06/06/2024 8:19 PM EST [facility] Comment:Supplemental ranges: <140 mg/dL before meals <180 mg/dL all other times of the day. Blood CAPILLARY BLOOD / Unknown 06/06/2024 8:18 PM EST 06/06/2024 8:19 PM EST Melida Valdes MD POINT OF CARE TEST O NIKA Performing Organization Address [facility] Co de Phone Number [facility] [place] [address] * POC, GLUCOSE (06/06/2024 3:39 PM EST) Glucometer, POC 147 65 - 199 mg/dL 06/06/2024 3:40 PM EST [facility] Comment:Supplemental ranges: <140 mg/dL before meals <180 mg/dL all other times of the day. Blood CAPILLARY BLOOD / Unknown 06/06/2024 3:39 PM EST 06/06/2024 3:40 PM EST Melida Valdes MD POINT OF CARE TEST Abimael MAHER Performing Organization Address [facility] de Phone Number [facility] [place] [address] * Potassium (06/06/2024 2:37 PM EST) Potassium 4.3 3.5 - 5.0 mMol/L 06/06/2024 3:01 PM EST [facility] Blood VENOUS BLOOD SPECIMEN / Unknown Venipuncture / Unknown 06/06/2024 2:37 PM EST 06/06/2024 2:42 PM EST Shahnaz Scanlon MD CHEMISTRY ORDERABLES Performing Organization Address [facility] Co de Phone Number [facility] [place] [address] * (ABNORMAL) POC, GLUCOSE (06/06/2024 1:39 PM EST) Glucometer, POC 317(H) 65 - 199 mg/dL 06/06/2024 1:40 PM EST [facility] Comment:Supplemental ranges: <140 mg/dL before meals <180 mg/dL all other times of the day. Blood CAPILLARY BLOOD / Unknown 06/06/2024 1:39 PM EST 06/06/2024 1:41 PM EST Melida Valdes MD POINT OF CARE TEST O NIKA [facility] [place] [address] * (ABNORMAL) POC, GLUCOSE (06/06/2024 11:34 AM EST) Glucometer, POC 264(H) 65 - 199 mg/dL 06/06/2024 11:35 AM EST [facility] Comment:Supplemental ranges: <140 mg/dL before meals <180 mg/dL all other times of the day. Blood CAPILLARY BLOOD / Unknown 06/06/2024 11:34 AM EST 06/06/2024 11:35 AM EST Melida Valdes MD POINT OF CARE TEST Abimael MAHER Performing Organization Address City/[facility]/ZIP Co de Phone Number [facility] [place] [address] * Potassium (06/06/2024 10:17 AM EST) Potassium 4.3 3.5 - 5.0 mMol/L 06/06/2024 10:46 AM EST [facility] Blood VENOUS BLOOD SPECIMEN / Unknown Venipuncture / Unknown 06/06/2024 10:17 AM EST 06/06/2024 10:22 AM EST Shahnaz Scanlon MD CHEMISTRY ORDERABLES [facility] [place] [address] * POC, GLUCOSE (06/06/2024 7:57 AM EST) Glucometer, POC 195 65 - 199 mg/dL 06/06/2024 8:03 AM EST [facility] Comment:Supplemental ranges: <140 mg/dL before meals <180 mg/dL all other times of the day. Blood CAPILLARY BLOOD / Unknown 06/06/2024 7:57 AM EST 06/06/2024 8:03 AM EST Melida Valdes MD POINT OF CARE TEST O NIKA Performing Organization Address [facility] Co de Phone Number [facility] [place] [address] * POC, GLUCOSE (06/06/2024 6:53 AM EST) Glucometer, POC 187 65 - 199 mg/dL 06/06/2024 6:53 AM EST [facility] Comment:Supplemental ranges: <140 mg/dL before meals <180 mg/dL all other times of the day. Blood CAPILLARY BLOOD / Unknown 06/06/2024 6:53 AM EST 06/06/2024 6:54 AM EST Melida Valdes MD POINT OF CARE TEST Abimael MAHER Performing Organization Address [facility] Co de Phone Number [facility] [place] [address] * (ABNORMAL) Hemoglobin A1c (06/06/2024 3:33 AM EST) Hemoglobin A1c 7.1(H) 4.3 - 5.6 % 06/06/2024 1:01 PM EST [facility] Comment: Per ADA guidelines, without [...] red blood cell turnover may not be financial service representative of glycemic control. Reference Interval: 4.3 - 5.6% 5.7 - 6.4%: Consistent with prediabetes >=6.5%: Consistent with diagnosis of diabetes mellitus Estimated Average Glucose 157 mg/dL 06/06/2024 1:01 PM EST [facility] Blood VENOUS BLOOD SPECIMEN / Unknown Venipuncture / Unknown 06/06/2024 3:33 AM EST 06/06/2024 3:48 AM EST Alejandra Baumann APRN CHEMISTRY ORDERAB LES Performing Organization Address [facility]/ZIP Co de Phone Number [facility] [place] [address] * Heparin (unfractionated) Level (06/06/2024 3:33 AM EST) UF Heparin 0.36 IU/mL 06/06/2024 3:59 AM EST [facility] Comment: Heparin (anti-Xa) levels should [...] Performing Organization Address City/[facility]/ZIP Co de Phone Number [facility] [place] [address] * (ABNORMAL) CBC (with Diff) (06/06/2024 3:33 AM EST) White Blood Cell 9.81(H) 4.00 - 9.50 x10(3)/mc L 06/06/2024 3:54 AM [facility] Red Blood Cell 4.91 4.58 - 5.54 x10(6)/mc L 06/06/2024 3:54 AM [facility] Hemoglobin 14.6 13.7 - 16.5 g/dL 06/06/2024 3:54 AM [facility] Hematocrit 45.4 40.5 - 48.5 % 06/06/2024 3:54 AM [facility] Mean Cell Volume 92.5 82.9 - 93.1 fL 06/06/2024 3:54 AM [facility] Mean Cell Hemoglobin 29.7 27.5 - 32.1 pg 06/06/2024 3:54 AM [facility] Mean Cell Hemoglobin Concentration 32.2 32.0 - 35.7 g/dL 06/06/2024 3:54 AM [facility] Platelet 199 145 - 357 x10(3)/mc L 06/06/2024 3:54 AM [facility] Mean Platelet Volume 9.5 7.6 - 12.9 fL 06/06/2024 3:54 AM [facility] RDW Standard Deviation 47.2(H) 36.0 - 45.0 fL 06/06/2024 3:54 AM [facility] RDW coefficient of variation 13.9(H) 11.4 - 13.8 % 06/06/2024 3:54 AM [facility] NRBC% auto 0.0 % 06/06/2024 3:54 AM [facility] NRBC Absolute <0.01 <0.01 x10(3)/mc L 06/06/2024 3:54 AM [facility] Neutrophil % 56.8 % 06/06/2024 3:54 AM [facility] Neutrophil Absolute (ANC) - Automated 5.57 1.70 - 6.10 x10(3)/mc L 06/06/2024 3:54 AM [facility] Lymph % 27.6 % 06/06/2024 3:54 AM [facility] Lymph Absolute 2.71 0.90 - 3.20 x10(3)/mc L 06/06/2024 3:54 AM [facility] Monocyte % 11.1 % 06/06/2024 3:54 AM [facility] Monocyte Absolute 1.09(H) 0.30 - 0.90 x10(3)/mc L 06/06/2024 3:54 AM [facility] Eos % 3.0 % 06/06/2024 3:54 AM [facility] Eos Absolute 0.29 0.00 - 0.40 x10(3)/mc L 06/06/2024 3:54 AM [facility] Basophil % 0.9 % 06/06/2024 3:54 AM [facility] Baso Absolute 0.09 0.00 - 0.10 x10(3)/mc L 06/06/2024 3:54 AM [facility] Immature Gran % 0.6 % 3:54 AM [facility] Immature Gran Absolute 0.06(H) 0.00 - 0.04 x10(3)/mc L 06/06/2024 3:54 AM [facility] Blood VENOUS BLOOD SPECIMEN / Unknown Venipuncture / Unknown 06/06/2024 3:33 AM EST 06/06/2024 3:48 AM EST Shahnaz Scanlon MD HEMATOLOGY ORDERABLE S [facility] [place] [address] * Magnesium (06/06/2024 3:33 AM EST) Magnesium 0.92 0.69 - 1.07 mMol/L 06/06/2024 4:17 AM [facility] Blood VENOUS BLOOD SPECIMEN / Unknown Venipuncture / Unknown 06/06/2024 3:33 AM EST 06/06/2024 3:47 AM EST Shahnaz Scanlon MD CHEMISTRY ORDERABLES [facility] [place] [address] * (ABNORMAL) Basic Metabolic Panel (06/06/2024 3:33 AM EST) Glucose 190 65 - 199 mg/dL 06/06/2024 4:17 AM [facility] Comment:Glucose Concentratio n >=200 mg/dL plus symptoms is consistent with Diabetes Mellitus. Blood Urea Nitrogen 27(H) 10 - 20 mg/dL 06/06/2024 4:17 AM [facility] Creatinine 1.12 0.80 - 1.50 mg/dL 06/06/2024 4:17 AM [facility] Sodium 136 135 - 145 mMol/L 06/06/2024 4:17 AM [facility] Potassium 4.0 3.5 - 5.0 mMol/L 06/06/2024 4:17 AM [facility] Chloride 97(L) 98 - 107 mMol/L 06/06/2024 4:17 AM [facility] Carbon Dioxide 26 22 - 31 mMol/L 06/06/2024 4:17 AM [facility] Anion Gap 13 5 - 15 mMol/L 06/06/2024 4:17 AM [facility] Calcium 9.1 8.5 - 10.5 mg/dL 06/06/2024 4:17 AM [facility] Est Glomerular Filtration Rate - Male 72 mL/min/1. 73 m?? 06/06/2024 4:17 AM [facility] Comment: This [...] ORDERABLES Performing Organization Address [facility] Co de Phone Number [facility] [place] [address] * (ABNORMAL) POC, GLUCOSE (06/05/2024 10:31 PM EDT) Glucometer, POC 238(H) 65 - 199 mg/dL 06/05/2024 10:31 PM EDT [facility] Comment:Supplemental ranges: <140 mg/dL before meals <180 mg/dL all other times of the day. Blood CAPILLARY BLOOD / Unknown 06/05/2024 10:31 PM EDT 06/05/2024 10:31 PM EDT Melida Valdes MD POINT OF CARE TEST O RDERABLES Performing Organization Address City/[facility]/ZIP Co de Phone Number [facility] [place] [address] * (ABNORMAL) POC, GLUCOSE (06/05/2024 4:22 PM EDT) Glucometer, POC 205(H) 65 - 199 mg/dL 06/05/2024 4:22 PM EDT [facility] Comment:Supplemental ranges: <140 mg/dL before meals <180 mg/dL all other times of the day. Blood CAPILLARY BLOOD / Unknown 06/05/2024 4:22 PM EDT 06/05/2024 4:23 PM EDT Melida Valdes MD POINT OF CARE TEST O RDERABLES [facility] [place] [address] * (ABNORMAL) POC, GLUCOSE (06/05/2024 11:34 AM EDT) Glucometer, POC 211(H) 65 - 199 mg/dL 06/05/2024 11:34 AM EDT [facility] Comment:Supplemental ranges: <140 mg/dL before meals <180 mg/dL all other times of the day. Blood CAPILLARY BLOOD / Unknown 06/05/2024 11:34 AM EDT 06/05/2024 11:34 AM EDT Melida Valdes MD POINT OF CARE TEST O RDERABLES Performing Organization Address City/[facility]/ZIP Co de Phone Number [facility] [place] [address] * Potassium (06/05/2024 9:04 AM EDT) Potassium 4.3 3.5 - 5.0 mMol/L 06/05/2024 9:50 AM EDT [facility] Blood VENOUS BLOOD SPECIMEN / Unknown Venipuncture / Unknown 06/05/2024 9:04 AM EDT 06/05/2024 9:21 AM EDT Shahnaz Scanlon MD CHEMISTRY ORDERABLES [facility] [place] [address] * POC, GLUCOSE (06/05/2024 7:27 AM EDT) Glucometer, POC 166 65 - 199 mg/dL 06/05/2024 7:27 AM EDT [facility] Comment:Supplemental ranges: <140 mg/dL before meals <180 mg/dL all other times of the day. Blood CAPILLARY BLOOD / Unknown 06/05/2024 7:27 AM EDT 06/05/2024 7:27 AM EDT Melida Valdes MD POINT OF CARE TEST O RDERABLES Performing Organization Address [facility] Co de Phone Number [facility] [place] [address] * Heparin (unfractionated) Level (06/05/2024 3:44 AM EDT) UF Heparin 0.44 IU/mL 06/05/2024 4:07 AM EDT [facility] Comment: Heparin (anti-Xa) levels should [...] Performing Organization Address City/[facility]/ZIP Co de Phone Number [facility] [place] [address] * (ABNORMAL) CBC (with Diff) (06/05/2024 3:44 AM EDT) White Blood Cell 10.83(H) 4.00 - 9.50 x10(3)/mc L 06/05/2024 3:56 AM EDT [facility] Red Blood Cell 5.07 4.58 - 5.54 x10(6)/mc L 06/05/2024 3:56 AM [facility] Hemoglobin 15.3 13.7 - 16.5 g/dL 06/05/2024 3:56 AM [facility] Hematocrit 46.8 40.5 - 48.5 % 06/05/2024 3:56 AM [facility] Mean Cell Volume 92.3 82.9 - 93.1 fL 06/05/2024 3:56 AM [facility] Mean Cell Hemoglobin 30.2 27.5 - 32.1 pg 06/05/2024 3:56 AM [facility] Mean Cell Hemoglobin Concentration 32.7 32.0 - 35.7 g/dL 06/05/2024 3:56 AM [facility] Platelet 219 145 - 357 x10(3)/mc L 06/05/2024 3:56 AM [facility] Mean Platelet Volume 9.4 7.6 - 12.9 fL 06/05/2024 3:56 AM [facility] RDW Standard Deviation 46.7(H) 36.0 - 45.0 fL 06/05/2024 3:56 AM [facility] RDW coefficient of variation 13.9(H) 11.4 - 13.8 % 06/05/2024 3:56 AM [facility] NRBC% auto 0.0 % 06/05/2024 3:56 AM [facility] NRBC Absolute <0.01 <0.01 x10(3)/mc L 06/05/2024 3:56 AM [facility] Neutrophil % 61.5 % 06/05/2024 3:56 AM [facility] Neutrophil Absolute (ANC) - Automated 6.65(H) 1.70 - 6.10 x10(3)/mc L 06/05/2024 3:56 AM [facility] Lymph % 24.0 % 06/05/2024 3:56 AM EDT [facility] Lymph Absolute 2.60 0.90 - 3.20 x10(3)/mc L 06/05/2024 3:56 AM EDT [facility] Monocyte % 10.9 % 06/05/2024 3:56 AM EDT [facility] Monocyte Absolute 1.18(H) 0.30 - 0.90 x10(3)/mc L 06/05/2024 3:56 AM EDT [facility] Eos % 2.2 % 06/05/2024 3:56 AM EDT [facility] Eos Absolute 0.24 0.00 - 0.40 x10(3)/mc L 06/05/2024 3:56 AM EDT [facility] Basophil % 0.8 % 06/05/2024 3:56 AM EDT [facility] Baso Absolute 0.09 0.00 - 0.10 x10(3)/mc L 06/05/2024 3:56 AM EDT [facility] Immature Gran % 0.6 % 3:56 AM EDT [facility] Immature Gran Absolute 0.07(H) 0.00 - 0.04 x10(3)/mc L 06/05/2024 3:56 AM EDT [facility] Blood VENOUS BLOOD SPECIMEN / Unknown Venipuncture / Unknown 06/05/2024 3:44 AM EDT 06/05/2024 3:50 AM EDT Shahnaz Scanlon MD HEMATOLOGY ORDERABLE S [facility] [place] [address] * Magnesium (06/05/2024 3:44 AM EDT) Magnesium 0.92 0.69 - 1.07 mMol/L 06/05/2024 4:20 AM EDT [facility] Blood VENOUS BLOOD SPECIMEN / Unknown Venipuncture / Unknown 06/05/2024 3:44 AM EDT 06/05/2024 3:50 AM EDT Shahnaz Scanlon MD CHEMISTRY ORDERABLES [facility] [place] [address] * (ABNORMAL) Basic Metabolic Panel (06/05/2024 3:44 AM EDT) Glucose 155 65 - 199 mg/dL 06/05/2024 4:20 AM EDT [facility] Comment:Glucose Concentratio n >=200 mg/dL plus symptoms is consistent with Diabetes Mellitus. Blood Urea Nitrogen 25(H) 10 - 20 mg/dL 06/05/2024 4:20 AM [facility] Creatinine 1.16 0.80 - 1.50 mg/dL 06/05/2024 4:20 AM [facility] Sodium 136 135 - 145 mMol/L 06/05/2024 4:20 AM [facility] Potassium 3.9 3.5 - 5.0 mMol/L 06/05/2024 4:20 AM [facility] Chloride 95(L) 98 - 107 mMol/L 06/05/2024 4:20 AM [facility] Carbon Dioxide 29 22 - 31 mMol/L 06/05/2024 4:20 AM [facility] Anion Gap 12 5 - 15 mMol/L 06/05/2024 4:20 AM [facility] Calcium 9.2 8.5 - 10.5 mg/dL 06/05/2024 4:20 AM [facility] Est Glomerular Filtration Rate - Male 69 mL/min/1. 73 m?? 06/05/2024 4:20 AM [facility] Comment: [...] ORDERABLES Performing Organization Address [facility]/ZIP Co de Phone Number [facility] [place] [address] * Potassium (06/04/2024 10:34 PM EDT) Potassium 3.7 3.5 - 5.0 mMol/L 06/04/2024 11:03 PM EDT [facility] Blood VENOUS BLOOD SPECIMEN / Unknown Venipuncture / Unknown 06/04/2024 10:34 PM EDT 06/04/2024 10:39 PM EDT Shahnaz Scanlon MD CHEMISTRY ORDERABLES Performing Organization Address [facility] Co de Phone Number [facility] [place] [address] * POC, GLUCOSE (06/04/2024 7:43 PM EDT) Glucometer, POC 175 65 - 199 mg/dL 06/04/2024 7:43 PM EDT [facility] Comment:Supplemental ranges: <140 mg/dL before meals <180 mg/dL all other times of the day. Blood CAPILLARY BLOOD / Unknown 06/04/2024 7:43 PM EDT 06/04/2024 7:43 PM EDT Melida Valdes MD POINT OF CARE TEST O RDERABLES Performing Organization Address City/State/[facility] Co de Phone Number [facility] [place] [address] * Potassium (06/04/2024 4:35 PM EDT) Potassium 4.0 3.5 - 5.0 mMol/L 06/04/2024 5:32 PM EDT [facility] Blood VENOUS BLOOD SPECIMEN / Unknown Venipuncture / Unknown 06/04/2024 4:35 PM EDT 06/04/2024 4:40 PM EDT Shahnaz Scanlon MD CHEMISTRY ORDERABLES Performing Organization Address [facility] Co de Phone Number [facility] [place] [address] * POC, GLUCOSE (06/04/2024 3:26 PM EDT) Glucometer, POC 154 65 - 199 mg/dL 06/04/2024 3:26 PM EDT [facility] Comment:Supplemental ranges: <140 mg/dL before meals <180 mg/dL all other times of the day. Blood CAPILLARY BLOOD / Unknown 06/04/2024 3:26 PM EDT 06/04/2024 3:27 PM EDT Melida Valdes MD POINT OF CARE TEST O RDERABLES Performing Organization Address [facility] Co de Phone Number [facility] [place] [address] * POC, GLUCOSE (06/04/2024 11:09 AM EDT) Glucometer, POC 188 65 - 199 mg/dL 06/04/2024 11:09 AM EDT [facility] Comment:Supplemental ranges: <140 mg/dL before meals <180 mg/dL all other times of the day. Blood CAPILLARY BLOOD / Unknown 06/04/2024 11:09 AM EDT 06/04/2024 11:09 AM EDT Delroy Fofana MD POINT OF CARE TEST ORDERABLES Performing Organization Address [facility] Co de Phone Number [facility] [place] [address] * Heparin (unfractionated) Level (06/04/2024 10:41 AM EDT) UF Heparin 0.43 IU/mL 06/04/2024 11:06 AM EDT [facility] Comment: Heparin (anti-Xa) levels should [...] EDT Shahnaz Scanlon MD HEMATOLOGY ORDERABLE S [facility] [place] [address] * Potassium (06/04/2024 10:41 AM EDT) Potassium 4.0 3.5 - 5.0 mMol/L 06/04/2024 11:11 AM EDT [facility] Blood VENOUS BLOOD SPECIMEN / Unknown Venipuncture / Unknown 06/04/2024 10:41 AM EDT 06/04/2024 10:46 AM EDT Shahnaz Scanlon MD CHEMISTRY ORDERABLES Performing Organization Address City/[facility]/ZIP Co de Phone Number [facility] [place] [address] * POC, GLUCOSE (06/04/2024 7:11 AM EDT) Glucometer, POC 182 65 - 199 mg/dL 06/04/2024 7:12 AM EDT [facility] Comment:Supplemental ranges: <140 mg/dL before meals <180 mg/dL all other times of the day. Blood CAPILLARY BLOOD / Unknown 06/04/2024 7:11 AM EDT 06/04/2024 7:12 AM EDT Delroy Fofana MD POINT OF CARE TEST ORDERABLES Performing Organization Address [facility] Co de Phone Number [facility] [place] [address] * Heparin (unfractionated) Level (06/04/2024 4:38 AM EDT) UF Heparin 0.41 IU/mL 06/04/2024 5:19 AM EDT [facility] Comment: Heparin (anti-Xa) levels should [...] EDT Shahnaz Scanlon MD HEMATOLOGY ORDERABLE S [facility] [place] [address] * (ABNORMAL) CBC (with Diff) (06/04/2024 4:38 AM EDT) White Blood Cell 11.45(H) 4.00 - 9.50 x10(3)/mc L 06/04/2024 5:12 AM EDT [facility] Red Blood Cell 5.35 4.58 - 5.54 x10(6)/mc L 06/04/2024 5:12 AM EDT [facility] Hemoglobin 16.0 13.7 - 16.5 g/dL 06/04/2024 5:12 AM EDT [facility] Hematocrit 49.6(H) 40.5 - 48.5 % 06/04/2024 5:12 AM EDT [facility] Mean Cell Volume 92.7 82.9 - 93.1 fL 06/04/2024 5:12 AM EDT [facility] Mean Cell Hemoglobin 29.9 27.5 - 32.1 pg 06/04/2024 5:12 AM EDT [facility] Mean Cell Hemoglobin Concentration 32.3 32.0 - 35.7 g/dL 06/04/2024 5:12 AM EDT [facility] Platelet 222 145 - 357 x10(3)/mc L 06/04/2024 5:12 AM EDT [facility] Mean Platelet Volume 9.5 7.6 - 12.9 fL 06/04/2024 5:12 AM EDT [facility] RDW Standard Deviation 47.6(H) 36.0 - 45.0 fL 06/04/2024 5:12 AM EDT [facility] RDW coefficient of variation 14.1(H) 11.4 - 13.8 % 06/04/2024 5:12 AM EDT [facility] NRBC% auto 0.0 % 06/04/2024 5:12 AM [facility] NRBC Absolute <0.01 <0.01 x10(3)/mc L 06/04/2024 5:12 AM [facility] Neutrophil % 60.3 % 06/04/2024 5:12 AM [facility] Neutrophil Absolute (ANC) - Automated 6.91(H) 1.70 - 6.10 x10(3)/mc L 06/04/2024 5:12 AM [facility] Lymph % 25.1 % 06/04/2024 5:12 AM [facility] Lymph Absolute 2.87 0.90 - 3.20 x10(3)/mc L 06/04/2024 5:12 AM [facility] Monocyte % 10.6 % 06/04/2024 5:12 AM [facility] Monocyte Absolute 1.21(H) 0.30 - 0.90 x10(3)/mc L 06/04/2024 5:12 AM [facility] Eos % 2.8 % 06/04/2024 5:12 AM [facility] Eos Absolute 0.32 0.00 - 0.40 x10(3)/mc L 06/04/2024 5:12 AM [facility] Basophil % 0.7 % 06/04/2024 5:12 AM [facility] Baso Absolute 0.08 0.00 - 0.10 x10(3)/mc L 06/04/2024 5:12 AM [facility] Immature Gran % 0.5 % 5:12 AM [facility] Immature Gran Absolute 0.06(H) 0.00 - 0.04 x10(3)/mc L 06/04/2024 5:12 AM [facility] Blood VENOUS BLOOD SPECIMEN / Unknown Venipuncture / Unknown 06/04/2024 4:38 AM EDT 06/04/2024 5:07 AM EDT Shahnaz Scanlon MD HEMATOLOGY ORDERABLE S [facility] [place] [address] * Magnesium (06/04/2024 4:38 AM EDT) Magnesium 0.84 0.69 - 1.07 mMol/L 06/04/2024 5:35 AM EDT [facility] Blood VENOUS BLOOD SPECIMEN / Unknown Venipuncture / Unknown 06/04/2024 4:38 AM EDT 06/04/2024 5:07 AM EDT Shahnaz Scanlon MD CHEMISTRY ORDERABLES Performing Organization Address City/[facility]/ZIP Co de Phone Number [facility] [place] [address] * (ABNORMAL) Basic Metabolic Panel (06/04/2024 4:38 AM EDT) Glucose 118 65 - 199 mg/dL 06/04/2024 5:35 AM EDT [facility] Comment:Glucose Concentratio n >=200 mg/dL plus symptoms is consistent with Diabetes Mellitus. Blood Urea Nitrogen 22(H) 10 - 20 mg/dL 06/04/2024 5:35 AM EDT [facility] Creatinine 1.22 0.80 - 1.50 mg/dL 06/04/2024 5:35 AM EDT [facility] Sodium 137 135 - 145 mMol/L 06/04/2024 5:35 AM EDT [facility] Potassium 3.6 3.5 - 5.0 mMol/L 06/04/2024 5:35 AM EDT [facility] Chloride 97(L) 98 - 107 mMol/L 06/04/2024 5:35 AM EDT [facility] Carbon Dioxide 29 22 - 31 mMol/L 06/04/2024 5:35 AM EDT [facility] Anion Gap 11 5 - 15 mMol/L 06/04/2024 5:35 AM EDT [facility] Calcium 9.0 8.5 - 10.5 mg/dL 06/04/2024 5:35 AM EDT [facility] Est Glomerular Filtration Rate - Male 65 mL/min/1. 73 m?? 06/04/2024 5:35 AM EDT [facility] Comment: This patient's estimated GFR [...] AM EDT Shahnaz Scanlon MD CHEMISTRY ORDERABLES [facility] [place] [address] * Heparin (unfractionated) Level (06/03/2024 8:58 PM EDT) UF Heparin 0.27 IU/mL 06/03/2024 9:33 PM EDT [facility] Comment: Heparin (anti-Xa) levels should [...] S Performing Organization Address [facility]/ZIP Co de Phone Number [facility] [place] [address] * POC, GLUCOSE (06/03/2024 8:05 PM EDT) Glucometer, POC 136 65 - 199 mg/dL 06/03/2024 8:05 PM EDT [facility] Comment:Supplemental ranges: <140 mg/dL before meals <180 mg/dL all other times of the day. Blood CAPILLARY BLOOD / Unknown 06/03/2024 8:05 PM EDT 06/03/2024 8:05 PM EDT Delroy Fofana MD POINT OF CARE TEST ORDERABLES Performing Organization Address [facility] Co de Phone Number [facility] [place] [address] * POC, GLUCOSE (06/03/2024 5:48 PM EDT) Glucometer, POC 191 65 - 199 mg/dL 06/03/2024 5:48 PM EDT [facility] Comment:Supplemental ranges: <140 mg/dL before meals <180 mg/dL all other times of the day. Blood CAPILLARY BLOOD / Unknown 06/03/2024 5:48 PM EDT 06/03/2024 5:49 PM EDT Delroy Fofana MD POINT OF CARE TEST ORDERABLES [facility] [place] [address] * CT Chest wo Contrast (Generic) (06/03/2024 4:33 PM EDT) WORKSTATION ID [id number] RAD Anatomical Region Laterality Modality Chest Computed Tomogra phy Impressions 06/03/2024 4:47 PM EDT Cardiomegaly. Biventricular ICD leads in place. Thank you for letting us participate in the care of this patient. ??If you are a health care provider and have any questions regarding this report, please contact the number below. ??For patients who have questions please contact the health property caretaker that requested your imaging first. ? [...] patients who have questions please contactthe health property caretaker that requested your imaging first. Bobby Loja MD IMG CT ORDERABLES * Carotid Duplex, Bilateral (06/03/2024 2:19 PM EDT) VB Text Report Department: Vascular Surgery Lab Patient: [id number] (GEORGE MEHTA) CPT: 66700 Referring Physician: BOBBY LOJA ?? Phone: Indications: [...] lab database for comparison. Electronically Signed by: KIRSS MCKEON M.D. on 2024-06-03 03:51:06 PM [facility] VB Text Report End of Report [facility] 06/03/2024 2:19 PM EDT Bobby Loja MD VASCULAR ORDERABLES Performing Organization Address City/State/[facility] Co de Phone Number [facility] * Heparin (unfractionated) Level (06/03/2024 12:48 PM EDT) UF Heparin 0.15 IU/mL 06/03/2024 1:13 PM EDT [facility] Comment: Heparin (anti-Xa) levels should [...] EDT Shahnaz Scanlon MD HEMATOLOGY ORDERABLE S [facility] [place] [address] * POC, GLUCOSE (06/03/2024 11:14 AM EDT) Glucometer, POC 166 65 - 199 mg/dL 06/03/2024 11:14 AM EDT [facility] Comment:Supplemental ranges: <140 mg/dL before meals <180 mg/dL all other times of the day. Blood CAPILLARY BLOOD / Unknown 06/03/2024 11:14 AM EDT 06/03/2024 11:14 AM EDT Delroy Fofana MD POINT OF CARE TEST ORDERABLES Performing Organization Address [facility] Co de Phone Number [facility] [place] [address] * (ABNORMAL) Troponin-T, High Sensitivity 3 Hour (06/03/2024 10:06 AM EDT) Troponin-T, High Sensitivity 266(H) <=22 ng/L 06/03/2024 10:50 AM EDT [facility] Comment: This patient's troponin T [...] troponin value can be found in the [facility] Laboratory Test Catalog Troponin - [email or web address].org/catalogs/565/files/54097 Reference: Fourth Lena Definition of Myocardial Infarction. Journal of the [employer] 2018;72:1907-4879 Troponin-T, HS 3 hr delta 06/03/2024 10:50 AM EDT [facility] Comment:Delta troponin value not calculated, sample collected outside of delta calculation time limit. Blood VENOUS BLOOD SPECIMEN / Unknown IP Care Team Draw / Unknown 06/03/2024 10:06 AM EDT 06/03/2024 10:15 AM EDT Delroy Fofana MD CHEMISTRY ORDERABLE S [facility] [place] [address] * ECHO COMPLETE W CONTRAST (06/03/2024 8:46 AM EDT) Anatomical Region Laterality Modality Cardiac Other 06/03/2024 6:52 AM EDT Narrative 06/03/2024 10:32 AM EDT [address] [place] [address] ? Echocardiogram Report Name: GEORGE MEHTA ?Study Date: 06/03/2024 06:52 AM : 1955 ? Height: 168 cm ? Account: [id number] Age: 69 yrs ? Weight: 102 kg [...] fellow performed study of today's date). Procedure Complete-[id number]. Image enhancement Optison was used for left [...] Note Jonnie Jordan MD - 06/03/2024 [address] [place] [address] Echocardiogram Report Name: GEORGE MEHTA Study Date: 406:52 AM : 1955 Height: 168 cm Account: [id number] Age: 69 yrs Weight: 102 kg Gender: [...] a fellow performed study of's date). Procedure Complete-[id number]. Image enhancement Optison was used for left [...] 289(H) <=22 ng/L 06/03/2024 9:26 AM EDT [facility] Comment: This patient's troponin T [...] troponin value can be found in the [facility] Laboratory Test Catalog Troponin - https://[email or web address].org/catalogs/565/files/79594 Reference: Fourth Lena Definition of Myocardial Infarction. Journal of the [employer] 2018;72:1519-2658 Troponin-T, HS 1 hr delta 5 ng/L 06/03/2024 9:26 AM EDT [facility] Comment:The 1 hour Troponin T [...] Performing Organization Address City/[facility]/ZIP Co de Phone Number [facility] [place] [address] * POC, GLUCOSE (06/03/2024 7:54 AM EDT) Glucometer, POC 195 65 - 199 mg/dL 06/03/2024 7:55 AM EDT [facility] Comment:Supplemental ranges: <140 mg/dL before meals <180 mg/dL all other times of the day. Blood CAPILLARY BLOOD / Unknown 06/03/2024 7:54 AM EDT 06/03/2024 7:55 AM EDT Nuha Rojo MD POINT OF CARE TEST ORDERABLES Performing Organization Address [facility] Co de Phone Number [facility] [place] [address] * (ABNORMAL) Troponin-T, High Sensitivity (06/03/2024 7:39 AM EDT) Troponin-T, High Sensitivity Initial 284(H) <=22 ng/L 06/03/2024 8:29 AM EDT [facility] Comment: This patient's troponin T [...] troponin value can be found in the [facility] Test Catalog Troponin - [email or web address]/catalogs/565/files/71263 Reference: Fourth Lena Definition of Myocardial Infarction. Journal of the [employer] 2018;72:1506-3557 Blood VENOUS BLOOD SPECIMEN / Unknown IP Care Team Draw / Unknown 06/03/2024 7:39 AM EDT 06/03/2024 7:48 AM EDT Delroy Fofana MD CHEMISTRY ORDERABLE S [facility] [place] [address] * (ABNORMAL) Troponin-T, High Sensitivity 3 Hour (06/03/2024 5:11 AM EDT) Troponin-T, High Sensitivity 254(H) <=22 ng/L 06/03/2024 5:49 AM EDT [facility] Comment: This patient's troponin T [...] troponin value can be found in the [facility] Test Catalog Troponin - [email or web address]/catalogs/565/files/38736 Reference: Fourth Lena Definition of Myocardial Infarction. Journal of the [place] [employer] 2018;72:5820-6312 Troponin-T, HS 3 hr delta 46 ng/L 06/03/2024 5:49 AM EDT [facility] Comment:The 3 hour Troponin T delta value is the absolute difference between the Troponin T concentrations of the initial and subsequent sample collected between 2 h: 45 min and 6 h following the initial collection Blood VENOUS BLOOD SPECIMEN / Unknown IP Care Team Draw / Unknown 06/03/2024 5:11 AM EDT 06/03/2024 5:20 AM EDT Shahnaz Scanlon MD CHEMISTRY ORDERABLES [facility] [place] [address] * (ABNORMAL) Troponin-T, High Sensitivity 1 Hour (06/03/2024 3:07 AM EDT) Troponin-T, High Sensitivity 218(H) <=22 ng/L 06/03/2024 3:39 AM EDT [facility] Comment: This patient's troponin T [...] troponin value can be found in the [facility] Laboratory Test Catalog Troponin - https://[facility]-.testcatalog.org/catalogs/565/files/37226 Reference: Fourth Lena Definition of Myocardial Infarction. Journal of the [place] [employer] 2018;72:4195-7343 Troponin-T, HS 1 hr delta 10 ng/L 06/03/2024 3:39 AM EDT [facility] Comment:The 1 hour Troponin T delta value is the absolute difference between the Troponin T concentrations of the initial and subsequent sample collected between 45 - 120 minutes following the initial collection. Blood VENOUS BLOOD SPECIMEN / Unknown IP Care Team Draw / Unknown 06/03/2024 3:07 AM EDT 06/03/2024 3:12 AM EDT Sahhnaz Scanlon MD CHEMISTRY ORDERABLES [facility] [place] [address] * XR Chest One View (06/03/2024 2:41 AM EDT) WORKSTATION ID [id number] RAD Anatomical Region Laterality Modality Chest N/A Digital Radiogra phy Impressions 06/03/2024 3:06 AM EDT No radiographically evident acute cardiopulmonary process. Thank you for letting us participate in the care of this patient. ??If you are a health care provider and have any questions regarding this report, please contact the number below. ??For patients who have questions please contact the health property caretaker that requested your imaging first. ? [...] patients who have questions please contactthe health property caretaker that requested your imaging first. Shahnaz Scanlon MD IMG DX ORDERABLES * Heparin (unfractionated) Level (06/03/2024 2:13 AM EDT) UF Heparin 0.56 IU/mL 06/03/2024 4:13 AM EDT [facility] Comment: Heparin (anti-Xa) levels should [...] EDT Shahnaz Scanlon MD HEMATOLOGY ORDERABLE S [facility] [place] [address] * (ABNORMAL) Troponin-T, High Sensitivity (06/03/2024 2:13 AM EDT) Troponin-T, High Sensitivity Initial 208(H) <=22 ng/L 06/03/2024 3:02 AM EDT [facility] Comment: This patient's troponin T [...] troponin value can be found in the [facility] Laboratory Test Catalog Troponin - https://one-.testcatalog.org/catalogs/565/files/10496 Reference: Fourth Lena Definition of Myocardial Infarction. Journal of the [place] [employer]iology 2018;72:9344-1843 Blood VENOUS BLOOD SPECIMEN / Unknown IP Care Team Draw / Unknown 06/03/2024 2:13 AM EDT 06/03/2024 2:32 AM EDT Shahnaz Scanlon MD CHEMISTRY ORDERABLES Performing Organization Address City/[facility]/ZIP Co de Phone Number [facility] [place] [address] * Magnesium (06/03/2024 2:13 AM EDT) Magnesium 0.86 0.69 - 1.07 mMol/L 06/03/2024 3:02 AM EDT [facility] Blood VENOUS BLOOD SPECIMEN / Unknown IP Care Team Draw / Unknown 06/03/2024 2:13 AM EDT 06/03/2024 2:32 AM EDT Shahnaz Scanlon MD CHEMISTRY ORDERABLES Performing Organization Address City/[facility]/ZIP Co de Phone Number [facility] [place] [address] * Basic Metabolic Panel (06/03/2024 2:13 AM EDT) Glucose 126 65 - 199 mg/dL 06/03/2024 3:02 AM EDT [facility] Comment:Glucose Concentratio n >=200 mg/dL plus symptoms is consistent with Diabetes Mellitus. Blood Urea Nitrogen 20 10 - 20 mg/dL 06/03/2024 3:02 AM EDT [facility] Creatinine 1.13 0.80 - 1.50 mg/dL 06/03/2024 3:02 AM EDT [facility] Sodium 139 135 - 145 mMol/L 06/03/2024 3:02 AM EDT [facility] Potassium 4.2 3.5 - 5.0 mMol/L 06/03/2024 3:02 AM EDT [facility] Chloride 101 98 - 107 mMol/L 06/03/2024 3:02 AM EDT [facility] Carbon Dioxide 26 22 - 31 mMol/L 06/03/2024 3:02 AM EDT [facility] Anion Gap 12 5 - 15 mMol/L 06/03/2024 3:02 AM EDT [facility] Calcium 9.8 8.5 - 10.5 mg/dL 06/03/2024 3:02 AM EDT [facility] Est Glomerular Filtration Rate - Male 71 mL/min/1. 73 m?? 06/03/2024 3:02 AM EDT [facility] Comment: This patient's estimated GFR [...] AM EDT Shahnaz Scanlon MD CHEMISTRY ORDERABLES [facility] [place] [address] * (ABNORMAL) CBC (with Diff) (06/03/2024 2:13 AM EDT) White Blood Cell 11.16(H) 4.00 - 9.50 x10(3)/mc L 06/03/2024 2:37 AM EDT [facility] Red Blood Cell 5.09 4.58 - 5.54 x10(6)/mc L 06/03/2024 2:37 AM EDT [facility] Hemoglobin 15.0 13.7 - 16.5 g/dL 06/03/2024 2:37 AM [facility] Hematocrit 47.4 40.5 - 48.5 % 06/03/2024 2:37 AM [facility] Mean Cell Volume 93.1 82.9 - 93.1 fL 06/03/2024 2:37 AM [facility] Mean Cell Hemoglobin 29.5 27.5 - 32.1 pg 06/03/2024 2:37 AM [facility] Mean Cell Hemoglobin Concentration 31.6(L) 32.0 - 35.7 g/dL 06/03/2024 2:37 AM [facility] Platelet 217 145 - 357 x10(3)/mc L 06/03/2024 2:37 AM [facility] Mean Platelet Volume 9.5 7.6 - 12.9 fL 06/03/2024 2:37 AM [facility] RDW Standard Deviation 49.0(H) 36.0 - 45.0 fL 06/03/2024 2:37 AM [facility] RDW coefficient of variation 14.1(H) 11.4 - 13.8 % 06/03/2024 2:37 AM [facility] NRBC% auto 0.0 % 06/03/2024 2:37 AM [facility] NRBC Absolute <0.01 <0.01 x10(3)/mc L 06/03/2024 2:37 AM [facility] Neutrophil % 58.4 % 06/03/2024 2:37 AM [facility] Neutrophil Absolute (ANC) - Automated 6.51(H) 1.70 - 6.10 x10(3)/mc L 06/03/2024 2:37 AM [facility] Lymph % 29.9 % 06/03/2024 2:37 AM [facility] Lymph Absolute 3.34(H) 0.90 - 3.20 x10(3)/mc L 06/03/2024 2:37 AM [facility] Monocyte % 8.1 % 06/03/2024 2:37 AM EDT [facility] Monocyte Absolute 0.90 0.30 - 0.90 x10(3)/mc L 06/03/2024 2:37 AM EDT [facility] Eos % 2.4 % 06/03/2024 2:37 AM EDT [facility] Eos Absolute 0.27 0.00 - 0.40 x10(3)/mc L 06/03/2024 2:37 AM EDT [facility] Basophil % 0.8 % 06/03/2024 2:37 AM EDT [facility] Baso Absolute 0.09 0.00 - 0.10 x10(3)/mc L 06/03/2024 2:37 AM EDT [facility] Immature Gran % 0.4 % 2:37 AM EDT [facility] Immature Gran Absolute 0.05(H) 0.00 - 0.04 x10(3)/mc L 06/03/2024 2:37 AM EDT [facility] Blood VENOUS BLOOD SPECIMEN / Unknown IP Care Team Draw / Unknown 06/03/2024 2:13 AM EDT 06/03/2024 2:31 AM EDT Shahnaz Scanlon MD HEMATOLOGY ORDERABLE S [facility] [place] [address] * Lipid Panel (Reflex Direct LDL) (06/03/2024 2:13 AM EDT) Cholesterol, Total 76 mg/dL 06/03/2024 3:02 AM EDT [facility] Comment: Desirable: < 200 mg/dL Borderline High: 200 - 239 mg/dL High: > or = 240 mg/dL Triglyceride 75 mg/dL 06/03/2024 3:02 AM EDT [facility] Comment: Normal: <150 mg/dL Borderline High: 150-199 mg/dL High: 200-499 mg/dL Very High: > or =500 mg/dL HDL Cholesterol 39 mg/dL 3:02 AM [facility] Comment:Males: High Risk: <4 0 mg/dL LDL Cholesterol 21 mg/dL 3:02 AM [facility] Comment: Desirable: <100 mg/dL Above Desirable: 100-129 mg/dL Borderline High: 130-159 mg/dL High: 160-189 mg/dL Very High: > or =190 mg/dL Note: LDL calculation updated to the NIH LDL formula as of 03/07/2024 Non-HDL Cholesterol 37 mg/dL 06/03/2024 3:02 AM [facility] Comment: Desirable: <130 mg/dL Above Desirable: 130-159 mg/dL Borderline High: 160-189 mg/dL High: 190-219 mg/dL Very High: > or = 220 mg/dL Blood VENOUS BLOOD SPECIMEN / Unknown IP Care Team Draw / Unknown 06/03/2024 2:13 AM EDT 06/03/2024 2:32 AM EDT [facility]ATORY - 06/03/2024 3:02 AM EDT It [...] artery disease) Shahnaz Scanlon MD CHEMISTRY ORDERABLES [facility] [place] [address] * (ABNORMAL) APTT (06/03/2024 2:13 AM EDT) [facility] Signature Partial Thromboplastin Time 105(HHH) 25 - 37 sec 06/03/2024 4:13 AM EDT [facility] Comment: The PTT is NOT appropriate for heparin monitoring. Use the Anti-Xa level for heparin monitoring (HEP UFH) or LMWH monitoring (HEP LMW). A PTT less than 37 seconds generally indicates adequate hemostasis. Blood VENOUS BLOOD SPECIMEN / Unknown IP Care Team Draw / Unknown 06/03/2024 2:13 AM EDT 06/03/2024 2:32 AM EDT Shahnaz Scanlon MD HEMATOLOGY ORDERABLE S [facility] [place] [address] * Prothrombin Time (06/03/2024 2:13 AM EDT) Prothrombin Time 11.5 9.4 - 12.5 sec 06/03/2024 4:13 AM EDT [facility] International Normalization Ratio 1.0 <=4.9 06/03/2024 4:13 AM EDT [facility] Comment: An INR < 2.0 [...] EDT Shahnaz Scanlon MD HEMATOLOGY ORDERABLE S [facility] [place] [address] * Hepatic Function Panel (06/03/2024 2:13 AM EDT) Albumin 3.8 3.2 - 5.2 g/dL 06/03/2024 3:02 AM EDT [facility] Aspartate Aminotransferase 20 <=39 unit/L 06/03/2024 3:02 AM EDT [facility] Alanine Aminotransferase 12 0 - 55 unit/L 06/03/2024 3:02 AM EDT [facility] Alkaline Phosphatase 76 40 - 130 unit/L 06/03/2024 3:02 AM EDT [facility] Bilirubin, Total 0.4 <=1.3 mg/dL 06/03/2024 3:02 AM EDT [facility] Bilirubin, Direct <0.2 0.0 - 0.3 mg/dL 06/03/2024 3:02 AM EDT [facility] Protein, Total 7.0 6.1 - 8.0 g/dL 06/03/2024 3:02 AM EDT [facility] Blood VENOUS BLOOD SPECIMEN / Unknown IP Care Team Draw / Unknown 06/03/2024 2:13 AM EDT 06/03/2024 2:32 AM EDT Shahnaz Scanlon MD CHEMISTRY ORDERABLES [facility] [place] [address] * (ABNORMAL) pro-Brain Natriuretic Peptide (06/03/2024 2:13 AM EDT) NT-proBNP 1,628(H) <=124 pg/mL 06/03/2024 4:15 AM EDT [facility] Blood VENOUS BLOOD SPECIMEN / Unknown IP Care Team Draw / Unknown 06/03/2024 2:13 AM EDT 06/03/2024 2:32 AM EDT Shahnaz Scanlon MD CHEMISTRY ORDERABLES Performing Organization Address City/[facility]/ZIP Co de Phone Number [facility] [place] [address] * Phosphorus (06/03/2024 2:13 AM EDT) Phosphorus 4.4 2.5 - 4.5 mg/dL 06/03/2024 3:02 AM EDT [facility] Blood VENOUS BLOOD SPECIMEN / Unknown IP Care Team Draw / Unknown 06/03/2024 2:13 AM EDT 06/03/2024 2:32 AM EDT Shahnaz Scanlon MD CHEMISTRY ORDERABLES [facility] [place] [address] * EKG 12 Lead (06/03/2024 1:45 AM EDT) Ventricular rate 63 BPM MUSE SYSTEM Atrial Rate 63 BPM MUSE SYSTEM P-R Interval 168 ms MUSE SYSTEM QRS Duration 96 ms MUSE SYSTEM Q-T Interval 400 ms MUSE SYSTEM QTC Calculated (Bezet) 409 ms MUSE SYSTEM Calculated P [place] 65 degrees MUSE SYSTEM Calculated R [place] 70 degrees MUSE SYSTEM Calculated T [place] -86 degrees MUSE SYSTEM INTERPRETATION Atrial-sensed ventricular-paced rhythm Abnormal ECG No previous ECGs available I personally reviewed the tracing and edited the fellows interpretation Confirmed by fellow Sunni Agudelo ([id number]) on 06/04/2024 3:55:40 PM Confirmed by MD Tamia, Stuart Perry ([id number]) on 06/05/2024 11:46:48 AM MUSE SYSTEM 06/03/2024 1:45 AM EDT 06/05/2024 11:46 AM EDT Shahnaz Scanlon MD ECG ORDERABLES MUSE SYSTEM * CARDIAC CATHETERIZATION (06/03/2024 12:42 AM EDT) Anatomical Region Laterality Modality Other Narrative 06/04/2024 2:22 PM EDT ?[facility] ? Cardiac Catheterization/Intervention Report ? Patient Name: George Mehta L. ? Procedure Date: 06/02/2024 ? A #: [id number] ? Primary Physician: Nuha Shen I ? Case #: [id number] ? File Name: [id number] ? Catheterization Order Number: [id number] ? [facility] ? Final Report [place], [place] ? Patient Name: ? George L. Tyson ? ID#: ?[id number] ? : ?1955 ? Procedure Date: ? [...] was designated as ASA Class IV. The [facility] clinical frailty ?scale is 5: Mildly Frail. ? Diagnostic Tests: ?Electrocardiography: ? EKG was assessed by ECG. EKG was Abnormal. EKG showed ST Deviation ? >= 0.5 mm. ?Medications Prior to Procedure: ? Sacubitril and Valsartan, Aspirin, Beta Erik, Statin and ? Thrombolytic (any). ? Indications for Diagnostic Cath: ?The priority of the diagnostic procedure was Emergent. The indication for ?the labor economics professor visit is ACS less than or equal [...] ?3.5 guiding catheter and a 3.5 Fr Pyramid [facility] [place] [facility] 20 Mhz using Manual ?pullback. ??Imaging was [...] 3.5 guiding catheter and a 3.5 Fr Pyramid [facility] 20 Mhz using ?Manual pullback. ??Imaging was [...] Procedure Note Nuha Shen MD - 07/20/2024 [facility] Cardiac Catheterization/Intervention Report Patient Name: George Mehta Procedure Date: 06/02/2024 A #: [id number] Primary Physician: Nuha Shen I Case #: [id number] File Name: [id number] Catheterization Order Number: [id number] [facility] FinalReport [place], [place] Patient Name: George Mehta ID#:[id number] :1955 Procedure Date: June 02, 2024 Case [...] was designated as ASA Class IV. The [facility] clinicalfrailty scale is 5: Mildly Frail. Diagnostic Tests: Electrocardiography: EKG was assessed by ECG. EKG was Abnormal. EKG showed STDeviation >= 0.5 mm. Medications Prior to Procedure: Sacubitril and Valsartan, Aspirin, Beta Erik, Statin and Thrombolytic (any). Indications for Diagnostic Cath: The priority of the diagnostic procedure was Emergent. Theindication for the labor economics professor visit is ACS less than or equal [...] units of heparin were administered. A total [id number] of Omnipaque were opened, 84cc of Omnipaque were administered [id number] of Omnipaque were wasted. Radiation: Fluoro time [...] 3.5 guiding catheter and a 3.5 Fr Pyram[facility] 20 Mhz usingManual pullback. Imaging was successful. [...] 3.5 guiding catheter and a 3.5 Fr Pyramid [facility] 20 Mhzusing Manual pullback. Imaging was successful. Indication: IVUS performed for pre intervention planning. Findings Pre-Intervention: scattered plaque, calcification and [id number] degrees calcification. Findings Post-Intervention: Stent not imaged [...] * POC, GLUCOSE (06/02/2024 11:31 PM EDT) [facility] Signature Glucometer, POC 156 65 - 199 mg/dL 06/02/2024 11:31 PM EDT [facility] Comment:Supplemental ranges: <140 mg/dL before meals <180 mg/dL all other times of the day. Blood CAPILLARY BLOOD / Unknown 06/02/2024 11:31 PM EDT 06/02/2024 11:31 PM EDT Nuha Rojo MD POINT OF CARE TEST ORDERABLES Performing Organization Address City/State/[facility] Co de Phone Number [facility] [place] [phone] documented in this encounter Visit Diagnoses Not [...] 2100, Last dose on Fri06/23/24 at 0900, Postal Carrier recommended duration is 3 days., Routine Given [...] 10:46 AM EST 50 mEq sodium chloride (Mahomet) 0.65 % nasal spray 1 spray 1 spray, Each Nare, 2 TIMES DAILY PRN, Starting on 06/20/24 at 1737, Until 06/21/24 at 1534, Congestion, Routine Given 06/20/2024 8:42 [...] TIMES DAILY, 6 doses, First dose on Fri24 at 2100, Last dose on Fri06/23/24 at 0900, Postal Carrier recommended duration is 3 days., Routine 2043 (Given - Provider: Christina Myers RN) 0900 (Not Given - Provider: Shazia Mcdonald, RN - Reason: Patient/family refused) pantoprazole EC (Protonix) tablet 40 mg(Linked Group 4) 40 mg, Oral, DAILY, First dose on 06/14/24 at 1500, Until Discontinued, DO NOT CRUSH OR OPEN If unable to take PO, may give IV, Routine 08 (Given - Provider: Mary Lou Lane, JAMIE) 08 (Given - Provider: Michelle Orozco RN) 0837 (Given - Provider: Shazia Mcdonald, JAMIE) potassium [...] oral route first line., Routine sodium chloride (Mahomet) 0.65 % nasal spray 1 spray 1 [...] 6 hours upon arrival to Unit. Give [place] if unable to take PO, Routine Group [...] Routine documented in this encounter Care Teams Forestry Crew Chief Relationship Specialty Start Date End Date Mauro Berumen MD [address] [place] [address] PCP - General Family Medicine 06/02/24 documented as of this encounter
--- OUTSIDE RECORDS SUMMARY | 2024-08-18 10:25 | XMS_ITS | Encounter Summary ---
Author Organization [facility] [place] [address] Care Team Providers Care Cell Maker Name Role Phone Mauro Berumen MD Primary Care Provider [phone] Reason for Visit * Auth/Cert Specialty Diagnoses / Procedures Referred By Carroll t Referred To Contact Diagnoses STEMI (ST elevation myocardial infarction) STEMI Procedures CARDIAC CATHETERIZATION EMERGENCY Delroy Monterroso MD [facility] [place] [address] [facility] Referral ID Status Reason Start Date Expiration Date Visits Re quested Visits Authorized [id number] 1 1 Encounter Details Date Type Department Care Team (Late st Contact Info) Description 06/14/2024 7:30 AM EST Anesthesia Event [place] [address] Hosea Ardon MD [facility] [place] [address] oJy Leyva CRNA [facility] [place] [address] Anesthesia Record Procedure Summary Procedure Name Responsible [...] Drains, and Airways Type Details Placement Removal Incision 06/14/24; 0848; midl ine; sternal; vertical 06/14/24 0848 by Danielle López RN Incision 06/14/24; 0849; Righ t; leg; laparoscopic punctures (specify) 06/14/24 0849 by Danielle López RN PIV 06/02/24; 2200; 20 g auge; cephalic vein (lateral side of arm), right; OSH; LDA not present upon assessment; 08/14/24; 1900 06/02/24 2200 by Madison Carpenter RN 08/14/24 1900 by Nadia Locke RN LDA Cath/EP Sheath 06/13/24; 0927; 8 Fr ench (Fr); Proximal, Right, Anterior; Femoral; Arterial 06/13/24 0927 by Elliott Houston RN 06/14/24 1606 by Zeferino Baker RN Intra-Aortic Balloon Pump 06/13/24; 0937; right femoral artery; 50; no swelling, no warmth, no drainage, no redness; 06/14/24; 1606 06/13/24 0937 by Elliott Houston RN 06/14/24 1606 by Zeferino Baker RN PIV 06/13/24; 1200; kivg-rth-krvofq catheter system; 20 gauge; metacarpal vein (top [...] temperature probe; 100% silicone; 14; inserted at [facility]; 1; 10; 10; drainage bag; [...] Ardon MD 06/15/24 0000 by Yoli Donaldson [employer] Cental Line 06/14/24; 0827; Sing le Lumen; 9 Fr; internal jugular vein, right; Anatomical Landmarks, Ultrasound Guidance; Yes - US guidance used for evaluation of potential access sites, vessel patency and realtime visualization of needle entry with permanent recording.; Autumn KOENIG; KAREN; CVC Bundle Performed; 06/15/24; 1500 06/14/24 0827 by Hosea Ardon MD 06/15/24 1500 by Angeles Lowry RN PA Catheter 06/14/24; 0828; Trip le Lumen; standard thermodilution catheter; Right; internal jugular vein; CVC Bundle Performed; no longer indicated; Autumn KOENIG; 06/15/24; 1115 06/14/24 0828 by Hosea Ardon MD 06/15/24 1115 by Angeles Lowry RN Closed/Suction Drain 06/14/24; 0910; Rig ht; Leg; Bulb 06/14/24 0910 by Danielle López RN 06/14/24 1811 by Zeferino Baker, RN documented in this encounter Social History Tobacco Use Types Packs/Day Years Used Date Smoking Tobacco: Every Day Cigarettes Smokeless Tobacco: Never [facility] Utilities Answer Date Recorded In the past 12 months has [employer], gas, oil, or water [employer] threatened to shut off services in your [...] any time in the past 12 m [facility], were you homeless or living in a [...] Procedure Summary Date: 06/14/24 Room / Location: [facility] OR [address] [place] [address] MAIN OR Anesthesia Start: 729 Anesthesia Stop: [...] All Anesthesia Providers: Anesthesiologist: Hosea Ardon MD TRANSPLANT REGISTERED NURSE: Joy Leyva CRNA Vitals Value Taken Time [...] Diagnosis Date Noted Cardiac 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 LV ejection fraction [...] AM Reason For Study: STEMI Exam Location: [facility]. Interpretation Summary -Left ventricular systolic function is [...] 65 - 199 mg/dL -Type and screen ([facility]/CGP/RAFITA): Result Value Ref Range ABORH Type O POSITIVE PATIENT HISTORY Not Found Expires at [id number] on: 06/16/2024 ANTIBODY SCREEN AUTOMATED Negative T&S only valid at [facility] -POC, GLUCOSE: Result Value Ref Range Glucometer, POC 216 (H) 65 - 199 mg/dL -ABORH RECHECK: Result Value Ref Range ABORH Recheck O POSITIVE -Heparin (unfractionated) Level: Result Value Ref Range UF Heparin 0.76 IU/mL Region - Intrathoracic Cardiac Informed Consent: Plan discussed with TRANSPLANT REGISTERED NURSE. Anesthesia Screening documented in this encounter Plan of Treatment Upcoming Encounters Date Type Department Care Team (Late st Contact Info) Description 09/29/2024 2:00 PM EST Office Visit Cardiology at [address] [phone] Moi Falcon MD [facility] [place] [address] documented as of this encounter Visit Diagnoses [...] mL/hr documented in this encounter Care Teams Cell Maker Relationship Specialty Start Date End Date Mauro Berumen MD [address] [place] [address] PCP - General Family Medicine 06/02/24 documented as of this encounter
--- OUTSIDE RECORDS SUMMARY | 2024-08-18 10:26 | XMS_ITS | Encounter Summary ---
Author Organization [facility] [place] [address] Care Team Providers Care Buyer Intern Name Role Phone Mauro Berumen MD Primary Care Provider [phone] Reason for Visit * Auth/Cert Specialty Diagnoses / Procedures Referred By Carroll lopez Referred To Contact Diagnoses STEMI (ST elevation myocardial infarction) STEMI Procedures CARDIAC CATHETERIZATION EMERGENCY Delroy Monterroso MD [facility] [place] [address] [address] [facility] Referral ID Status Reason Start Date Expiration Date Visits Re quested Visits Authorized [id number] 1 1 Encounter Details Date Type Department Care Team (Late st Contact Info) Description 06/13/2024 9:00 AM EST - 06/13/2024 10:00 AM EST Surgery [place] [address] Nuha Shen MD [facility] [place] [address] CARDIAC CATHETERIZATION Social History Tobacco Use Types Packs/Day Years Used Date Smoking Tobacco: Every Day Cigarettes Smokeless Tobacco: Never Tobacco Cessation:Ready to Q uit: No; Counseling Given: Yes [facility] Utilities Answer Date Recorded In the past 12 months has [employer], gas, oil, or water company threatened to [...] any time in the past 12 m [facility], were you homeless or living in a [...] 1-2 weeks. Patient to follow up with Triple Drum Operator, Kristen Cardenas in 2-3 weeks. Patient to follow up with Cardiac Surgeon, Dr. Bobby Loja, in 4 wks. Inpatient Provider Contact Information: [facility] of Cardiac Surgery [facility] [address] FAX [phone] Discharge Diagnoses (Hospital Problems) Primary Diagnoses: STEMI [...] (WRVU 33.75) performed by Bobby Loja MD [facility] OR PRO CABG, ARTERY-VEIN, TWO N/A 06/14/2024 @CABG, TWO VENOUS GRAFTS & ARTERIAL GRAFT (WRVU 7.93) performed by Bobby Loja MD at [facility] OR PRO ENDOSCOPY W/VIDEO-ASST VEIN HARVEST, CABG N/A 06/14/2024 ENDOSCOPIC HARVEST VEIN(S) FOR CABG (WRVU 0.31) performed by Bobby Loja MD at [facility] MAIN OR PRO EXC MEDIASTINAL TUMOR N/A 06/14/2024 @EXCISION OF MEDIASTINAL TUMOR (WRVU 19.55) performed by Bobby Loja MD at [facility] MAIN OR PRO INSERT INTRA-AORTIC BALLOON ASST DEVICE PERCUTANEOUS N/A 06/13/2024 @INSERTION OF IABP,PERCUTANEOUS (WRVU 4.84) performed by Nuha Shen MD at [facility] CATH LABS PRO UNLISTED CARDIAC SURG PROCEDURE N/A 06/14/2024 EXPLORATION AND OVERSEW ATRIAL APPENDAGE (WRVU 5.94) performed by Bobby Loja MD at [facility] [place] Prior To Admission Medications [...] remote melanoma, and smoker who presented to [facility] last night via EMS after developing acute, severe chest pain while watching TV. Patient was ruled in for STEMI, given TNK, ASA, plavix, heparin gtt, and sent to [facility] for coronary angiography. [facility] demonstrated severely calcified left coronary system with notable LCx 75/80% lesions and WIRELESS OPERATOR OM1 with ISR with collateral retrograde [...] Hospital Course: George Mehta was admitted to [facility] on 06/02/2024 via the CardiologyService with an anterior STEMI after receiving lytics at OSH. He was brought to the labor commissioner which showed severely calcified left coronary system with notable LCx 75/80% lesions and WIRELESS OPERATOR OM1 with ISR with collateral retrograde [...] 2 tablespoons of dried fruit. Milk and vk-hcvqh-xssnj yogurt have 15 grams of carbs in a serving. A serving is 1 cup of milk or 3/4 cup (6 oz) of xb-plptj-faycj yogurt. Starchy vegetables have 15 grams of carbs in a serving. A serving is ?? cup of mashed potatoes or sweet potato; 1 cup winter squash; ?? of a small baked potato; ?? cup of cooked beans; or ?? cup cooked corn or green peas. Learn how much carbs to eat each day and at each meal. A dietitian or certified travel counselor can teach you how to keep [...] Bobby Loja and/or the Cardiac Surgery Physician Press Puller Team may be reached at . Weight: [...] Dr. Bobby Loja. You may use a [place] Track or treadmill but avoid any pulling [...] friends, go to a movie, go to religion, etc. Heavy activities: No hunting, skiing, jogging, [...] should resume a low fat, low cholesterol, [place] [employer] Diet/Diabetic diet. Driving: No driving [...] while being managed by your PCP and/or Triple Drum Operator. For future medication refills, please refer to your PCP and/or Triple Drum Operator after your discharge from our service. Thank you REMOVE CHEST TUBE SUTURES ON OR AFTER 06/24/2024 Home oxygen therapy: N/A Follow up appointments: You should follow up with your PCP, Mauro Berumen MD, in 1-2 weeks. You should follow up with your Triple Drum Operator, Dr CARDENAS. You have an appointment with your Cardiac Surgeon, Dr. Bobby Loja, in 4 wks. Cardiac Rehabilitation: George Mehta was seen today regarding participation in the outpatient Phase 2 Cardiac Rehabilitation at [facility]. The patient agrees to a referral to this program. The referral will be sent at discharge and the patient should be contacted by the program within 1-2 weeks from discharge. Future Appointments and Orders Future Orders Complete By Expires Referral to Cardiac Rehab [[id number] Custom] As directed Process Instructions: If no progress note charted, please enter Clinical details in comments. Scheduling Instructions: Questions: My question or request is: s/p CABG- cardiac rehab at [facility] Referral to Home Health [[id number] Custom] As directed Process Instructions: If no progress note charted, please enter Clinical details in comments. Scheduling Instructions: Comments: Please evaluate George Mehta for admission to Home Health. [address] [facility] [address] (home) Date of : 1955 Inpatient DOCUMENTATION FOR VNA SERVICES (INCLUDING THOSE PATIENTS WITH MEDICARE COVERAGE REQUIRINGHOME VNA SERVICES AND/OR HOSPICE SERVICES) PATIENT'S LOCATION: George Mehta [address] [facility] [address] (home) Telephone Information: Healthcare Applications Analyst's Name: self In discussion with the attending physician, it is certified that this patient is under their care and that they, or a Nurse Practitioner, or Physician Press Puller who is working directly with them, hada [...] for services as follows: HOME HEALTH AGENCY: [facility]. [address] [place] [id number] RN orders: Cardiopulmonary assessment, incisional assessment, assess [...] issues please call the Cardiology Office at [phone] FOR MEDICARE ONLY: (please delete this section [...] care: As above. Signed: KEILA HANLEY APRN [facility] of Cardiac Surgery [facility] [address] FAX [phone] Date: 06/21/2024 CC: MD Antonino Tinajero Joshua R, PA [address] [place] [address] [place] [address] documented in this encounter Discharge Instructions * [...] 2 tablespoons of dried fruit. Milk and og-dokii-ywqtv yogurt have 15 grams of carbs in a serving. A serving is 1 cup of milk or 3/4 cup (6 oz) of vc-zghoo-erxwg yogurt. Starchy vegetables have 15 grams of carbs in a serving. A serving is ?? cup of mashed potatoes or sweet potato; 1 cup winter squash; ?? of a small baked potato; ?? cup of cooked beans; or ?? cup cooked corn or green peas. Learn how much carbs to eat each day and at each meal. A dietitian or certified travel counselor can teach you how to keep [...] Bobby Loja and/or the Cardiac Surgery Physician Press Puller Team may be reached at . Weight: [...] Dr. Bobby Loja. You may use a [place] Track or treadmill but avoid any pulling [...] friends, go to a movie, go to religion, etc. Heavy activities: No hunting, skiing, jogging, [...] should resume a low fat, low cholesterol, [place] [employer] Diet/Diabetic diet. Driving: No driving [...] while being managed by your PCP and/or Triple Drum Operator. For future medication refills, please refer to your PCP and/or Triple Drum Operator after your discharge from our service. Thank you REMOVE CHEST TUBE SUTURES ON OR AFTER 06/24/2024 Home oxygen therapy: N/A Follow up appointments: You should follow up with your PCP, Mauro Berumen MD, in 1-2 weeks. You should follow up with your Triple Drum Operator, Dr CARDENAS. You have an appointment with your Cardiac Surgeon, Dr. Bobby Loja, in 4 wks. Cardiac Rehabilitation: George Mehta was seen today regarding participation in the outpatient Phase 2 Cardiac Rehabilitation at [facility]. The patient agrees to a [...] RN - 06/21/2024 8:32 AM EST During [facility] Purposeful Rounding, an assessment of your patient's venous access was performed [facility] theVascular Access Service. The following tasks [...] RN - 06/21/2024 8:31 AM EST During [facility] Purposeful Rounding, an assessment of your patient's venous access was performed [facility] theVascular Access Service. The following tasks [...] or weekly) [] Other * Alejandra Baumann, SWINE GENETICS RESEARCHER - 06/21/2024 7:05 AM EST Follow Up [...] MARIALUISA clipping. PMH of chronic HFrEF s/p CONSTRUCTION ANALYST/ICD, IDDM2, HTN, HLD, remote melanoma, active [...] juice or regular (not diet) soda 6 [employer] small box of raisins 4 glucose tablets [...] 2 tablespoons of dried fruit. Milk and dk-peroi-wsdmz yogurt have 15 grams of carbs in a serving. A serving is 1 cup of milk or 3/4 cup (6 oz) of pw-fgbpy-pmlqm yogurt. Starchy vegetables have 15 grams of carbs in a serving. A serving is ?? cup of mashed potatoes or sweet potato; 1 cup winter squash; ?? of a small baked potato; ?? cup of cooked beans; or ?? cup cooked corn or green peas. Learn how much carbs to eat each day and at each meal. A dietitian or certified travel counselor can teach you how to keep [...] cheese, and peanut butter. Alejandra Baumann APRN [facility] Endocrinology Diabetes Management Pager [phone] Weekends please page [phone] * Eric Packer PA - 06/20/2024 7:44 AM EST Cardiac Surgery Progress Note George Mehta is a 69 y.o. male with a history of CAD s/p multiple PCI who presented with an anterior STEMI and was given lytics. Cath showed MV CAD without culprit vessel. He is now 6 Days Post-OpCABGx3 and MARIALUISA clipping. 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 06/20/2024 Between the hours of 1800 - 0600 and on the weekends please page [phone]. * Alejandra Baumann, JOSÉ ANTONIO - 06/20/2024 7:21 AM EST Follow Up Diabetes Consult Patient Interview Blood glucose values and insulin use reviewed. echo technologist BG to 59 despite decrease in glargine [...] MARIALUISA clipping. PMH of chronic HFrEF s/p CONSTRUCTION ANALYST/ICD, IDDM2, HTN, HLD, remote melanoma, active smoker. echo technologist BG to 59 despite decrease in glargine [...] based on ISF 20 Alejandra Baumann APRN [facility] Endocrinology Diabetes Management Pager [phone] Weekends please page [phone] Insulin Discharge Instructions Preliminary Diabetes Discharge Instructions [...] juice or regular (not diet) soda 6 [employer] small box of raisins 4 glucose tablets [...] 2 tablespoons of dried fruit. Milk and xd-vjhjr-mqgng yogurt have 15 grams of carbs in a serving. A serving is 1 cup of milk or 3/4 cup (6 oz) of re-ujogq-odtjv yogurt. Starchy vegetables have 15 grams of carbs in a serving. A serving is ?? cup of mashed potatoes or sweet potato; 1 cup winter squash; ?? of a small baked potato; ?? cup of cooked beans; or ?? cup cooked corn or green peas. Learn how much carbs to eat each day and at each meal. A dietitian or certified travel counselor can teach you how to keep [...] MARIALUISA clipping. 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 Jeffy Hood MD 06/19/2024 Between the hours of 1800 - 0600 and on the weekends please page [phone]. * Alejandra Baumann, SWINE GENETICS RESEARCHER - 06/19/2024 7:09 AM EST Follow Up Diabetes Consult Patient Interview Blood glucose values and insulin use reviewed. Jardiance added back yesterday, sales account coordinator low BGto 51. Glargine reduced to [...] MARIALUISA clipping. PMH of chronic HFrEF s/p CONSTRUCTION ANALYST/ICD, IDDM2, HTN, HLD, remote melanoma, active smoker. Jardiance added back yesterday. echo technologist low BG to 51. Glargine reduced to [...] 2 tablespoons of dried fruit. Milk and hs-fpxoc-gaazd yogurt have 15 grams of carbs in a serving. A serving is 1 cup of milk or 3/4 cup (6 oz) of wx-wxcjr-lribg yogurt. Starchy vegetables have 15 grams of carbs in a serving. A serving is ?? cup of mashed potatoes or sweet potato; 1 cup winter squash; ?? of a small baked potato; ?? cup of cooked beans; or ?? cup cooked corn or green peas. Learn how much carbs to eat each day and at each meal. A dietitian or certified travel counselor can teach you how to keep [...] cheese, and peanut butter. Alejandra Baumann APRN [facility] Endocrinology Diabetes Management Pager [phone] Weekends please page [phone] * Hilda Resendez PTA - 06/18/2024 9:19 AM EST Physical Therapy Note 2 Patient profile: George Mehta is a 69 y.o. male with a history of CAD s/p multiple PCI who presented with an anterior STEMI and was given lytics. Cath showed MV CAD without culprit vessel. He is now 1 Day Post-Op CABGx3 and MARIALUISA clipping. PMH of chronic HFrEF s/p CONSTRUCTION ANALYST/ICD, IDDM2, HTN, HLD, remote melanoma, active smoker. Interval History: Per last cardiac surgery note on 06/18/2024 Cr improved 1.4 on lasix 40 iv bid -1.5L, made 2.5L urine Coreg, entresto restarted Floor status Social History: Pt lives with his in a 1 level apartment with no steps to enter. 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 He drives. He sleeps in a recliner at baseline. Precautions/Special Considerations: Sternal precautions, PIV, at risk to fall, PPM Mobility and Positioning Recommendations: Pt to utilize no AD, supervision for ambulation and transfers w/ staff air tactical officer as able. Please encourage up to chair [...] least restrictive device Time IN / OUT: 7058-8079 Total Time: 11 minutes; TEF 1 Hilda Resendez PTA Pager: [phone] Physical Therapy Inpatient Rehabilitation Department * Keila [...] MARIALUISA clipping. 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 Restarting jardiance #Active smoker Duoneb prn Dispo: CVCC, Full code, tx to floor Discussed with attending surgeon on rounds this morning. KEILA HANLEY APRN 06/18/2024 Between the hours of 1800 - 0600 and on the weekends please page [phone]. * Alejandra Baumann APRN - 06/17/2024 3:29 [...] MARIALUISA clipping. PMH of chronic HFrEF s/p CONSTRUCTION ANALYST/ICD, IDDM2, HTN, HLD, remote melanoma, active [...] based on ISF 20 Alejandra Baumann APRN [facility] Endocrinology Diabetes Management Pager [phone] Weekends please page [phone] 35 minutes were spent over the course [...] MARIALUISA clipping. PMH of chronic HFrEF s/p CONSTRUCTION ANALYST/ICD, IDDM2, HTN, HLD, remote melanoma, active [...] 0600 and on the weekends please page [phone]. * Raymond Carlton MD - 06/16/2024 1:11 PM EST CARDIAC CRITICAL CARE ATTENDING STAFF PROGRESS NOTE Patient seen and examined. George Mehta is a 69 y.o. male with: Active Hospital Problems Diagnosis STEMI (ST elevation myocardial infarction) Cardiac resynchronization therapy defibrillator (CONSTRUCTION ANALYST-D) - Medtronic Amplia Cardiomyopathy, ischemic Acute on chronic heart failure with reduced ejection fraction (HFrEF, <= 40%) Coronary artery disease involving [place] coronary artery of [place] heart without angina pectoris Type 2 diabetes [...] encouragement provided Patient screened for f/u and job specification writer met pt at bedside. Pt states [...] unless consulted in the interim. RICHA Simmons Gyn Physician * Octaviano Horvath PA - 06/16/2024 8:07 AM EST Cardiac Surgery Progress Note George Mehta is a 69 y.o. male with a history of CAD s/p multiple PCI who presented with an anterior STEMI and was given lytics. Cath showed MV CAD without culprit vessel. He is now 2 Days Post-OpCABGx3 and MARIALUISA clipping. PMH of chronic HFrEF s/p CONSTRUCTION ANALYST/ICD, IDDM2, HTN, HLD, remote melanoma, active [...] 0600 and on the weekends please page [phone]. * Jono Fernandez PT - 06/15/2024 4:09 PM EST Physical Therapy Evaluation Patient profile: George Mehta is a 69 y.o. male with a history of CAD s/p multiple PCI who presented with an anterior STEMI and was given lytics. Cath showed MV CAD without culprit vessel. He is now 1 Day Post-Op CABGx3 and MARIALUISA clipping. PMH of chronic HFrEF s/p CONSTRUCTION ANALYST/ICD, IDDM2, HTN, HLD, remote melanoma, active smoker. 24h Events: From OR on Dobutamine IABP removed Bedrest ended ~2100, sedation weaned Extubated ~0200 Dobutamine weaned to 1 this morning, CI 2.6, shut off and repeat CI 2.4 Social History: Pt lives with his in a 1 level apartment with no steps to enter. 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 He drives. He sleeps [...] outlined inthis evaluation. JONO FERNANDEZ, PT Pager: [phone] Physical Therapy Inpatient Rehabilitation Department Time IN / OUT: [phone] Total Time: 33 (eval) minutes * Alejandra Baumann APRN - 06/15/2024 11:39 AM EST Follow Up Diabetes Consult Patient Interview Blood glucose values and insulin use reviewed. Pt remains on an insulin drip today following [id number] MARIALUISA clipping. George continues to complain of [...] MARIALUISA clipping. PMH of chronic HFrEF s/p CONSTRUCTION ANALYST/ICD, IDDM2, HTN, HLD, remote melanoma, active [...] based on ISF 20 Alejandra Baumann APRN [facility] Endocrinology Diabetes Management Pager [phone] Weekends please page [phone] 50 minutes were spent over the course [...] elevation myocardial infarction) Cardiac resynchronization therapy defibrillator (CONSTRUCTION ANALYST-D) - Medtronic Amplia Cardiomyopathy, ischemic Acute on chronic heart failure with reduced ejection fraction (HFrEF, <= 40%) Coronary artery disease involving [place] coronary artery of [place] heart without angina pectoris Type 2 diabetes [...] with h/o DM, CAD with prior PCI, CONSTRUCTION ANALYST-D who presented with crushing chest pain, [...] MARIALUISA clipping. PMH of chronic HFrEF s/p CONSTRUCTION ANALYST/ICD, IDDM2, HTN, HLD, remote melanoma, active [...] sternotomy dressing CDI, saphenectomy dressing CDi Tubes/Lines/Drains: [place], RIJ, A-line, Mediastinal marcos and bilateral pleural [...] 0600 and on the weekends please page [phone]. * Yoli Donaldson UNIT MANAGER RN - 06/15/2024 5:35 AM EST AMV Protocol: [...] with h/o DM, CAD with prior PCI, CONSTRUCTION ANALYST-D who presented with crushing chest pain, [...] with h/o DM, CAD with prior PCI, CONSTRUCTION ANALYST-D who presented with crushing chest pain, [...] to work towards waking/PSBT later tonight * Palua Treviño PA - 06/14/2024 4:33 PM EST [...] 0600 and on the weekends please page [phone]. * Chloé Cortez - 06/14/2024 9:36 AM [...] unless consulted in the interim. Chloé Cortez Tacker Off * Jim Benites MD - 06/13/2024 1:15 [...] - Mildly dilated left ventricle size with jqgymqnl-rb-wanrqanp decreased LV systolic function. LV ejection fraction [...] a fellow performed study of today's date). 10/30 LM 40%, LAD prox 70%/mid 70%, LCX [...] 14.3 oz) Weight loss: not clinically significant RICHA PerazaR * Haja Byrnes MD - 06/12/2024 4:41 [...] elevation myocardial infarction) Cardiac resynchronization therapy defibrillator (CONSTRUCTION ANALYST-D) - Medtronic Amplia Cardiomyopathy, ischemic Acute on chronic heart failure with reduced ejection fraction (HFrEF, <= 40%) Coronary artery disease involving [place] coronary artery of [place] heart without angina pectoris Type 2 diabetes [...] PCP: Mauro Berumen MD PCP phone number: [phone] Date of Admission: 06/02/2024 ( Hospital Day 10 days ) Attending:Ethel Carrillo MD ID: 69 y.o. male with a h/o DM type 2, HTN, HLD, current smoker (2-3 cigarettes/day), HFrEF with anICD for low EF (~30%), and CAD with prior [place] x3 with JENNA placed in [place], [facility], PAD, presented to [facility] with 1 hour of retrosternal CP (05/13) while watching TV, found to have STEMI. Active Problems: Active Hospital Problems Diagnosis STEMI (ST elevation myocardial infarction) Cardiac resynchronization therapy defibrillator (CONSTRUCTION ANALYST-D) - Medtronic Amplia Cardiomyopathy, ischemic Acute on chronic heart failure with reduced ejection fraction (HFrEF, <= 40%) Coronary artery disease involving [place] coronary artery of [place] heart without angina pectoris Type 2 diabetes [...] 06/03/24 0400 Labs: Recent Labs 06/12/24 0303 06/11/2421206/10/24 0155 06/09/24 0212 06/08/24 0321 WBC 9.69* 9.91* 9.00 9.80* 9.92* HGB 15.2 15.3 14.9 15.5 15.1 HCT 46.6 47.5 46.4 47.4 46.7 PLATELET 194 184 191 205 203 MCV 92.3 92.6 92.2 91.5 91.7 Recent Labs 06/12/24 0303 06/11/2421206/10/24 0155 06/09/24 0825 06/09/24 0212 06/08/24 0321 [...] in the last 7068 hours. Invalid input(s): [id number] Recent Labs 06/12/24 0425 06/11/24 2356 06/11/24 2025 06/11/24 1624 06/11/24 1108 06/11/24 0748 06/11/24 0357 06/11/24 0050 06/10/24 1922 06/10/24 1735 06/10/24 1125 06/10/24 0746 POCGLU 132 135 210* 81 233* 184 132 144 236* 123 216* 206* Heme No results for input(s): LDH, HAPTOGLOBIN, URICACID in the last 168 hours. ABG (Arterial Blood Gas) No results found for: PHART, PO2ART, YCC1JGW, BPL2VJS Microbiology: Microbiology Results (Last 30 days) No results found for the last 720 hours. Imaging: Results for orders placed or performed during the hospital encounter of 06/02/24 XR Chest One View (Exam End: 06/03/2024 2:41 AM) Result Value WORKSTATION ID [id number] Impression No radiographically evident acute cardiopulmonary process. Thank you for letting us participate in the care of this patient. If you are a health care provider and have any questions regarding this report, please contact the number below. For patients who have questions please contact the health healthcare account manager that requested your imaging first. Electronically signed by: Corazon Mauro MD, [facility] ([phone]), at 06/03/2024 3:06 AM MRI Cardiac Morphology Function wwo Contrast (Exam End: 06/07/2024 1:10 PM) Result Value WORKSTATION ID [id number] Impression - Findings consistent with an ischemic [...] - Mildly dilated left ventricle size with pxiamswi-sv-sgphcdbz decreased LV systolic function. LV ejection fraction [...] have questions please contact the health healthcare account manager that requested your imaging first. Electronically signed by: Kriss Alonzo MD, [facility] ([phone]), at 06/07/2024 2:[address] Chest wo Contrast (Generic) (Exam End: 06/03/2024 4:33 PM) Result Value WORKSTATION ID [id number] Impression Cardiomegaly. Biventricular ICD leads in place. Thank you for letting us participate in the care of this patient. If you are a health care provider and have any questions regarding this report, please contact the number below. For patients who have questions please contact the health healthcare account manager that requested your imaging first. Electronically signed by: Stuart Aponte MD, [facility] ([phone]), at 06/03/2024 4:47 PM XR Chest PA & Lateral (Generic) (Exam End: 06/07/2024 7:03 AM) Result Value WORKSTATION ID [id number] Impression Biventricular ICD leads intact and in [...] have questions please contact the health healthcare account manager that requested your imaging first. Electronically signed by: Stuart Aponte MD, [facility] ([phone]), at 06/07/2024 10:45 AM TTE: Limited echo performed by fellow internal audit consultant to assess LV function. Left ventricle [...] stable, asymptomatic. Plan to go to labor commissioner for balloon pump tomorrow, then willgo to [...] CODE Dain Colón MD Cardiology, M1-S2, Pager #[phone] 06/12/24 Associated attestation - Ethel Carrillo MD [...] two midnights or is on the [facility] inpatient only procedure list (status C) due to: acute myocardial infarction requiring titration of IV medication and fluid monitoring and decompensated congestive heart failure requiring IV medication and fluid monitoring Ethel Carrillo MD Cardiovascular Medicine Personal Pager [phone] 06/12/2024 9:12 PM * PastorAlejandra, SWINE GENETICS RESEARCHER - 06/11/2024 4:21 PM EST Images from [...] too aggressive, suggest ICR 1:6 (rule of [id number]/81 = 6.25). George is up and walking [...] ac, metformin 1000mg BID Alejandra Baumann APRN [facility] Endocrinology Diabetes Management Pager [phone] Weekends please page [phone] 35 minutes were spent over the course [...] PCP: Mauro Berumen MD PCP phone number: [phone] Date of Admission: 06/02/2024 ( Hospital Day 9 days ) Attending:Melida Valdes MD ID: 69 y.o. male with a h/o DM type 2, HTN, HLD, current smoker (2-3 cigarettes/day), HFrEF with anICD for low EF (~30%), and CAD with prior [place] x3 with JENNA placed in [place], Melanoma, PAD, presented to [facility] with 1 hour of retrosternal CP (05/13) while watching TV, found to have STEMI. Active Problems: Active Hospital Problems Diagnosis STEMI (ST elevation myocardial infarction) Cardiac resynchronization therapy defibrillator (CONSTRUCTION ANALYST-D) - Medtronic Amplia Cardiomyopathy, ischemic Acute on chronic heart failure with reduced ejection fraction (HFrEF, <= 40%) Coronary artery disease involving skagway coronary artery of skag[place] heart without angina pectoris Type 2 diabetes [...] symptoms 06/03/24 0400 Labs: Recent Labs 06/11/24 02106/10/24 0155 06/09/2421106/08/24 0321 06/07/24 0241 WBC 9.91* 9.00 9.80* 9.92* 10.06* HGB 15.3 14.9 15.5 15.1 14.8 HCT 47.5 46.4 47.4 46.7 46.2 PLATELET 184 191 205 203 202 MCV 92.6 92.2 91.5 91.7 92.0 Recent Labs 06/11/24 02106/10/24 0155 06/09/24 0806/09/2421106/08/24 03206/07/24 0944 06/07/24 0241 NA 134* [...] in the last 7068 hours. Invalid input(s): INESHKMEOYX2P Recent Labs 06/11/24 0357 06/11/24 0050 06/10/24 1922 06/10/24 1735 06/10/24 1125 06/10/24 0746 06/10/24 0423 06/10/24 0005 06/09/24 2036 06/09/24 1727 06/09/24 1152 06/09/24 0810 POCGLU 132 144 236* 123 216* 206* 154 125 197 174 211* 209* Heme No results for input(s): LDH, HAPTOGLOBIN, URICACID in the last 168 hours. ABG (Arterial Blood Gas) No results found for: PHART, PO2ART, VLT8OZG, DWN0IYP Microbiology: Microbiology Results (Last 30 days) No results found for the last 720 hours. Imaging: Results for orders placed or performed during the hospital encounter of 06/02/24 XR Chest One View (Exam End: 06/03/2024 2:41 AM) Result Value WORKSTATION ID [id number] Impression No radiographically evident acute cardiopulmonary process. Thank you for letting us participate in the care of this patient. If you are a health care provider and have any questions regarding this report, please contact the number below. For patients who have questions please contact the health healthcare account manager that requested your imaging first. Electronically signed by: Corazon Mauro MD, [facility] ([phone]), at 06/03/2024 3:06 AM MRI Cardiac Morphology Function wwo Contrast (Exam End: 06/07/2024 1:10 PM) Result Value WORKSTATION ID [id number] Impression - Findings consistent with an ischemic [...] - Mildly dilated left ventricle size with dayfwory-ry-nafuxuoe decreased LV systolic function. LV ejection fraction [...] have questions please contact the health healthcare account manager that requested your imaging first. Electronically signed by: Kriss Alonzo MD, [facility] ([phone]), at 06/07/2024 2:[address] Chest wo Contrast (Generic) (Exam End: 06/03/2024 4:33 PM) Result Value WORKSTATION ID [id number] Impression Cardiomegaly. Biventricular ICD leads in place. Thank you for letting us participate in the care of this patient. If you are a health care provider and have any questions regarding this report, please contact the number below. For patients who have questions please contact the health healthcare account manager that requested your imaging first. Electronically signed by: Stuart Aponte MD, [facility] ([phone]), at 06/03/2024 4:47 PM XR Chest PA & Lateral (Generic) (Exam End: 06/07/2024 7:03 AM) Result Value WORKSTATION ID [id number] Impression Biventricular ICD leads intact and in [...] have questions please contact the health healthcare account manager that requested your imaging first. Electronically signed by: Stuart Aponte MD, [facility] ([phone]), at 06/07/2024 10:45 AM TTE: Limited echo performed by fellow internal audit consultant to assess LV function. Left ventricle [...] Infusions: heparin (porcine) infusion 1,400 Units/hr (06/10/24 0196) PRN Meds:.insulin lispro, glucose 40% oral geL [...] on placing this weekend and transfer to [facility], likely Friday. #ASCVD / STEMI: -Holding Plavix; continue ASA and heparin gtt. -Monitor telmetry -TTE -Viability planning per CT surgery - CT chest (complete) - Carotid duplex bilat (complete) - Cardiac MR (scheduled today Thursday 06/07) - Will need balloon pump prior to CABG on Friday, likely Friday then transfer to [facility] #HFrEF (Ischemic Cardiomyopathy): -Monitor I&O and [...] CODE Dain Colón MD Cardiology, M1-S2, Pager #[phone] 06/11/24 Associated attestation - Ethel Carrillo MD [...] two midnights or is on the [facility] inpatient only procedure list (status C) due to: acute myocardial infarction requiring titration of IV medication and fluid monitoring and decompensated congestive heart failure requiring IV medication and fluid monitoring Ethel Carrillo MD Cardiovascular Medicine Personal Pager [phone] 06/11/2024 9:35 PM * Hilary Belle - 06/10/2024 12:39 PM EST Nutrition Services Note George Mehta is a 69 y.o. male Reason for intervention: hospital day 9 Nutrition Plan: Continue diet order: 60/60/75 CHO Level 2 Encourage good PO Lasix and Insulin noted Monitor weight Patient scheduled for a hospital day 9 nutrition evaluation. District Agent attempted to meet with pt at bedside [...] unless consulted in the interim. Hilary Belle Gyn Physician * Mariia Montero RN - 06/10/2024 12:23 PM EST I have met with the patient to: discuss discharge planning needs. provide the [facility], Office of Care Management letter from the College Football Coach pertaining to rehab referrals. provide a letter describing our affiliations within the [facility] and educate about their right to choose where referrals are sent. provide a list of Home Health Agencies / Durable Medical Equipment vendors which serve their preferred geographic area. provided patient with CMS Star Quality Rating handout. They have requested referrals to: [facility] [address] [place] [id number] RN / PT Anticipated d/c date: 06/20/24 Note routed to a Motion Picture Projectionist who will communicate referrals to facilities and provide any required information. * Dain Colón MD - 06/10/2024 7:17 AM EST Images from the original note were not included. . Cardiology Progress Note Patient info: Name: George Mehta : 1955 PCP: Mauro Berumen MD PCP phone number: [phone] Date of Admission: 06/02/2024 ( Hospital Day 8 days ) Attending:Melida Valdes MD ID: 69 y.o. male with a h/o DM type 2, HTN, HLD, current smoker (2-3 cigarettes/day), HFrEF with anICD for low EF (~30%), and CAD with prior [place] x3 with JENNA placed in [place], Melanoma, PAD, presented to [facility] with 1 hour of retrosternal CP (05/13) while watching TV, found to have STEMI. Active Problems: Active Hospital Problems Diagnosis STEMI (ST elevation myocardial infarction) Cardiac resynchronization therapy defibrillator (CONSTRUCTION ANALYST-D) - Medtronic Amplia Cardiomyopathy, ischemic Acute on chronic heart failure with reduced ejection fraction (HFrEF, <= 40%) Coronary artery disease involving skag[place] coronary artery of skagway heart without angina pectoris Type 2 diabetes [...] in the last 7068 hours. Invalid input(s): [id number] Recent Labs 06/10/24 0423 06/10/24 0005 06/09/24 2036 06/09/24 1727 06/09/24 1152 06/09/24 0810 06/09/24 0440 06/09/24 0034 06/08/24 2027 06/08/24 1616 06/08/24 1235 06/08/24 0810 POCGLU 154 125 197 174 211* 209* 131 186 176 159 226* 190 Heme No results for input(s): LDH, HAPTOGLOBIN, URICACID in the last 168 hours. ABG (Arterial Blood Gas) No results found for: PHART, PO2ART, LRN2CII, MWR0XLI Microbiology: Microbiology Results (Last 30 days) No results found for the last 720 hours. Imaging: Results for orders placed or performed during the hospital encounter of 06/02/24 XR Chest One View (Exam End: 06/03/2024 2:41 AM) Result Value WORKSTATION ID [id number] Impression No radiographically evident acute cardiopulmonary process. Thank you for letting us participate in the care of this patient. If you are a health care provider and have any questions regarding this report, please contact the number below. For patients who have questions please contact the health healthcare account manager that requested your imaging first. Electronically signed by: Corazon Mauro MD, [facility] ([phone]), at 06/03/2024 3:06 AM MRI Cardiac Morphology Function wwo Contrast (Exam End: 06/07/2024 1:10 PM) Result Value WORKSTATION ID [id number] Impression - Findings consistent with an ischemic [...] - Mildly dilated left ventricle size with rfiooocn-ku-hugliojl decreased LV systolic function. LV ejection fraction [...] have questions please contact the health healthcare account manager that requested your imaging first. Electronically signed by: Kriss Alonzo MD, [facility] ([phone]), at 06/07/2024 2:[address] Chest wo Contrast (Generic) (Exam End: 06/03/2024 4:33 PM) Result Value WORKSTATION ID [id number] Impression Cardiomegaly. Biventricular ICD leads in place. Thank you for letting us participate in the care of this patient. If you are a health care provider and have any questions regarding this report, please contact the number below. For patients who have questions please contact the health healthcare account manager that requested your imaging first. Electronically signed by: Stuart Aponte MD, [facility] ([phone]), at 06/03/2024 4:47 PM XR Chest PA & Lateral (Generic) (Exam End: 06/07/2024 7:03 AM) Result Value WORKSTATION ID [id number] Impression Biventricular ICD leads intact and in [...] have questions please contact the health healthcare account manager that requested your imaging first. Electronically signed by: Stuart Aponte MD, [facility] ([phone]), at 06/07/2024 10:45 AM TTE: Limited echo performed by fellow internal audit consultant to assess LV function. Left ventricle [...] on placing this weekend and transfer to [facility], likely Friday. #ASCVD / STEMI: -Holding Plavix; continue ASA and heparin gtt. -Consult CT surgery for potential open revascularization. -Monitor telmetry -TTE -Viability planning per CT surgery - CT chest (complete) - Carotid duplex bilat (complete) - Cardiac MR (scheduled today Thursday 06/07) - Will need balloon pump prior to CABG on Friday, likely Friday then transfer to [facility] #HFrEF (Ischemic Cardiomyopathy): -Monitor I&O and [...] CODE Dain Colón MD Cardiology, M1-S2, Pager #[phone] 06/10/24 Associated attestation - Melida Valdes MD [...] a lytic and brought directly to the Fan Mail Clerk. Cardiac catheterization demonstrated multivessel disease with [...] who is agreeable Melida Valdes MD Staff Triple Drum Operator * Cherelle Fregoso, JOSÉ ANTONIO - 06/09/2024 [...] PCP: Mauro Berumen MD PCP phone number: [phone] Date of Admission: 06/02/2024 ( Hospital Day 7 days ) Attending:Melida Valdes MD ID: 69 y.o. male with a h/o DM type 2, HTN, HLD, current smoker (2-3 cigarettes/day), HFrEF with anICD for low EF (~30%), and CAD with prior [place] x3 with JENNA placed in [place], Melanoma, PAD, presented to [facility] with 1 hour of retrosternal CP (05/13) while watching TV, found to have STEMI. Active Problems: Active Hospital Problems Diagnosis STEMI (ST elevation myocardial infarction) Acute on chronic heart failure with reduced ejection fraction (HFrEF, <= 40%) Coronary artery disease involving skag[place] coronary artery of skag[place] heart without angina pectoris Type 2 diabetes [...] 0333 06/05/24 0904 06/05/24 0344 06/04/24 0438 10/31/24 0213 NA 136 135 -- -- 136 [...] in the last 7068 hours. Invalid input(s): [id number] Recent Labs 06/09/24 0440 06/09/24 0034 06/08/24 2027 06/08/24 1616 06/08/24 1235 06/08/24 0810 06/08/24 0409 06/07/24 2357 06/07/24 2005 06/07/24 1631 06/07/24 1105 06/07/24 1103 POCGLU 131 186 176 159 226* 190 151 188 118 174 221* 250* Heme No results for input(s): LDH, HAPTOGLOBIN, URICACID in the last 168 hours. ABG (Arterial Blood Gas) No results found for: PHART, PO2ART, YXH6QTM, UNX3OXQ Microbiology: Microbiology Results (Last 30 days) No results found for the last 720 hours. Imaging: Results for orders placed or performed during the hospital encounter of 06/02/24 XR Chest One View (Exam End: 06/03/2024 2:41 AM) Result Value WORKSTATION ID [id number] Impression No radiographically evident acute cardiopulmonary process. Thank you for letting us participate in the care of this patient. If you are a health care provider and have any questions regarding this report, please contact the number below. For patients who have questions please contact the health healthcare account manager that requested your imaging first. Electronically signed by: Corazon Mauro MD, [facility] ([phone]), at 06/03/2024 3:06 AM MRI Cardiac Morphology Function wwo Contrast (Exam End: 06/07/2024 1:10 PM) Result Value WORKSTATION ID [id number] Impression - Findings consistent with an ischemic [...] - Mildly dilated left ventricle size with abshszvw-wo-bjalklab decreased LV systolic function. LV ejection fraction [...] have questions please contact the health healthcare account manager that requested your imaging first. Electronically signed by: Kriss Alonzo MD, [facility] ([phone]), at 06/07/2024 2:[address] Chest wo Contrast (Generic) (Exam End: 06/03/2024 4:33 PM) Result Value WORKSTATION ID [id number] Impression Cardiomegaly. Biventricular ICD leads in place. Thank you for letting us participate in the care of this patient. If you are a health care provider and have any questions regarding this report, please contact the number below. For patients who have questions please contact the health healthcare account manager that requested your imaging first. Electronically signed by: Stuart Aponte MD, [facility] ([phone]), at 06/03/2024 4:47 PM XR Chest PA & Lateral (Generic) (Exam End: 06/07/2024 7:03 AM) Result Value WORKSTATION ID [id number] Impression Biventricular ICD leads intact and in [...] have questions please contact the health healthcare account manager that requested your imaging first. Electronically signed [facility]: [facility] ([phone]), at 06/07/2024 10:45 AM TTE: Limited echo performed by fellow internal audit consultant to assess LV function. Left ventricle [...] Infusions: heparin (porcine) infusion 1,400 Units/hr (06/08/24 991) PRN Meds:.glucose 40% oral geL OR dextrose [...] CODE Dain Colón MD Cardiology, M1-S2, Pager #[phone] 06/09/24 Associated attestation - Melida Valdes MD [...] a lytic and brought directly to the Fan Mail Clerk. Cardiac catheterization demonstrated multivessel disease with [...] insertion low EF. Melida Valdes MD Staff Triple Drum Operator * Alejandra Baumann, SWINE GENETICS RESEARCHER - 06/08/2024 4:10 PM EST Images from [...] to optimize glucose control Alejandra Baumann APRN [facility] Endocrinology Diabetes Management Pager [phone] Weekends please page [phone] 35 minutes were spent over the course [...] PCP: Mauro Berumen MD PCP phone number: [phone] Date of Admission: 06/02/2024 ( Hospital Day 6 days ) Attending:Melida Valdes MD ID: 69 y.o. male with a h/o DM type 2, HTN, HLD, current smoker (2-3 cigarettes/day), HFrEF with anICD for low EF (~30%), and CAD with prior [place] x3 with JENNA placed in [place], Melanoma, PAD, presented to [facility] with 1 hour of retrosternal CP (05/13) while watching TV, found to have STEMI. Active Problems: Active Hospital Problems Diagnosis STEMI (ST elevation myocardial infarction) Acute on chronic heart failure with reduced ejection fraction (HFrEF, <= 40%) Coronary artery disease involving sk[place] coronary artery of skag[place] heart without angina pectoris Type 2 diabetes [...] in the last 7068 hours. Invalid input(s): [id number] Recent Labs 06/08/24 0409 06/07/24 2357 06/07/24 2005 06/07/24 1631 06/07/24 1105 06/07/24 1103 06/07/24 0745 06/07/24 0425 06/07/24 0008 06/06/24 2018 06/06/24 1539 06/06/24 1339 POCGLU 151 188 118 174 221* 250* 175 127 182 143 147 317* Heme No results for input(s): LDH, HAPTOGLOBIN, URICACID in the last 168 hours. ABG (Arterial Blood Gas) No results found for: PHART, PO2ART, QSG1LDV, GVG9KLT Microbiology: Microbiology Results (Last 30 days) No results found for the last 720 hours. Imaging: Results for orders placed or performed during the hospital encounter of 06/02/24 XR Chest One View (Exam End: 06/03/2024 2:41 AM) Result Value WORKSTATION ID [id number] Impression No radiographically evident acute cardiopulmonary process. Thank you for letting us participate in the care of this patient. If you are a health care provider and have any questions regarding this report, please contact the number below. For patients who have questions please contact the health healthcare account manager that requested your imaging first. Electronically signed by: Corazon Mauro MD, [facility] ([phone]), at 06/03/2024 3:06 AM MRI Cardiac Morphology Function wwo Contrast (Exam End: 06/07/2024 1:10 PM) Result Value WORKSTATION ID [id number] Impression - Findings consistent with an ischemic [...] - Mildly dilated left ventricle size with cravbvqq-ke-cgiybadd decreased LV systolic function. LV ejection fraction [...] have questions please contact the health healthcare account manager that requested your imaging first. Electronically signed by: Kriss Alonzo MD, [facility] ([phone]), at 06/07/2024 2:[address] Chest wo Contrast (Generic) (Exam End: 06/03/2024 4:33 PM) Result Value WORKSTATION ID [id number] Impression Cardiomegaly. Biventricular ICD leads in place. Thank you for letting us participate in the care of this patient. If you are a health care provider and have any questions regarding this report, please contact the number below. For patients who have questions please contact the health healthcare account manager that requested your imaging first. Electronically signed by: Stuart Aponte MD, [facility] ([phone]), at 06/03/2024 4:47 PM XR Chest PA & Lateral (Generic) (Exam End: 06/07/2024 7:03 AM) Result Value WORKSTATION ID [id number] Impression Biventricular ICD leads intact and in [...] have questions please contact the health healthcare account manager that requested your imaging first. Electronically signed by: Stuart Aponte MD, [facility] ([phone]), at 06/07/2024 10:45 AM TTE: Limited echo performed by fellow internal audit consultant to assess LV function. Left ventricle [...] at 40 mmHg and mild volume overload. 11/05/24: Patient stable, will continue GDMT as below [...] CODE Dain Colón MD Cardiology, M1-S2, Pager #[phone] 06/08/24 Associated attestation - Melida Valdes MD [...] a lytic and brought directly to the Fan Mail Clerk. Cardiac catheterization demonstrated multivessel disease with [...] Otherwise clinically stable Melida Valdes MD Staff Triple Drum Operator * Ross Manuel PA - 06/07/2024 12:00 PM EST Cardiac Electrophysiology CIED Interrogation/Programming Note Asked by MRI staff to evaluate and program Medtronic CONSTRUCTION ANALYST-D to allow for MR imaging. Patient Active Problem List Diagnosis ','STEMI (ST elevation myocardial infarction) Acute on chronic heart failure with reduced ejection fraction (HFrEF, <= 40%) Coronary artery disease involving [place] coronary artery of [place] heart without angina pectoris Type 2 diabetes mellitus Device Data: [employer] MRI Quad CONSTRUCTION ANALYST-D [id number] #[id number] 06/16/2019 RA Medtronic 4076 CapSureFix Novus [id number] 06/16/2019 RV Medtronic [id number] 06/16/2019 LV Medtronic 4298 Attain Performa MRI [id number] 06/16/2019 DDD @ 50/130/130 Adaptive Bi-V and LV VF >188bpm ATP, 35j x6 FVT >188-222bpm burst 2, 35jx5 VT Battery longevity: 2.5yrs; charge time 4s P wave: 2.3mV R wave: >20.0mV Atrial impedance: 458 ohms RV impedance: 646 ohms LV impedance: 722 ohms Atrial threshold: 0.5V @ 0.4ms RV threshold: LV threshold: 1.75V @ 0.4ms AP 0.2% MOVER 97.7% AT/AF 0% Impression and Plan: 1. Interrogated device to determine suitability for MRI 2. Programmed to MRI safe mode - VOO @ 70 3. Scan performed 4. Programming restored to baseline settings 5. Reinterrogated to verify appropriate function and settings 6. Device follow up as previously scheduled Provider: HENOK Meyer EP Consult attending physician: Libby Barton MD EP Consult positional pager #[phone](EPMD) EP Device interrogation positional pager # [phone] * Dain Colón MD - 06/07/2024 7:09 AM EST Images from the original note were not included. . Cardiology Progress Note Patient info: Name: George Mehta : 1955 PCP: Mauro Berumen MD PCP phone number: [phone] Date of Admission: 06/02/2024 ( Hospital Day 5 days ) Attending:Melida Valdes MD ID: 69 y.o. male with a h/o DM type 2, HTN, HLD, current smoker (2-3 cigarettes/day), HFrEF with anICD for low EF (~30%), and CAD with prior [place] x3 with JENNA placed in [place], Melanoma, PAD, presented to [facility] with 1 hour of retrosternal CP (05/13) while watching TV, found to have STEMI. Active Problems: Active Hospital Problems Diagnosis STEMI (ST elevation myocardial infarction) Acute on chronic heart failure with reduced ejection fraction (HFrEF, <= 40%) Coronary artery disease involving [place] coronary artery of [place] heart without angina pectoris Type 2 diabetes [...] in the last 7068 hours. Invalid input(s): [id number] Recent Labs 06/07/24 0425 06/07/24 0008 06/06/24 2018 06/06/24 1539 06/06/24 1339 06/06/24 1134 06/06/24 0757 06/06/24 0653 06/05/24 2231 06/05/24 1622 06/05/24 1134 06/05/24 0727 POCGLU 127 182 143 147 317* 264* 195 187 238* 205* 211* 166 Heme No results for input(s): LDH, HAPTOGLOBIN, URICACID in the last 168 hours. ABG (Arterial Blood Gas) No results found for: PHART, PO2ART, IEI7YLD, IDD2KJE Microbiology: Microbiology Results (Last 30 days) No results found for the last 720 hours. Imaging: Results for orders placed or performed during the hospital encounter of 06/02/24 XR Chest One View (Exam End: 06/03/2024 2:41 AM) Result Value WORKSTATION ID [id number] Impression No radiographically evident acute cardiopulmonary process. Thank you for letting us participate in the care of this patient. If you are a health care provider and have any questions regarding this report, please contact the number below. For patients who have questions please contact the health healthcare account manager that requested your imaging first. Electronically signed by: Corazon Mauro MD, [facility] ([phone]), at 06/03/2024 3:[address] Chest wo Contrast (Generic) (Exam End: 06/03/2024 4:33 PM) Result Value WORKSTATION ID [id number] Impression Cardiomegaly. Biventricular ICD leads in place. Thank you for letting us participate in the care of this patient. If you are a health care provider and have any questions regarding this report, please contact the number below. For patients who have questions please contact the health healthcare account manager that requested your imaging first. Electronically signed by: Stuart Aponte MD, [facility] ([phone]), at 06/03/2024 4:47 PM TTE: Limited echo performed by fellow internal audit consultant to assess LV function. Left ventricle [...] (Active) Number of days: 4 Code status: @YESSI@ Dain Colón MD (PGY-1) Cardiology, M1-S2, Pager #[phone] 06/07/24 Associated attestation - Melida Valdes MD [...] a lytic and brought directly to the Fan Mail Clerk. Cardiac catheterization demonstrated multivessel disease with [...] for further guidance. Melida Valdes MD Staff Triple Drum Operator * Dain Colón MD - 06/06/2024 7:17 AM EST Images from the original note were not included. . Cardiology Progress Note Patient info: Name: George Mehta : 1955 PCP: Mauro Berumen MD PCP phone number: [phone] Date of Admission: 06/02/2024 ( Hospital Day 4 days ) Attending:Melida Valdes MD ID: 69 y.o. male with a h/o DM type 2, HTN, HLD, current smoker (2-3 cigarettes/day), HFrEF with anICD for low EF (~30%), and CAD with prior [place] x3 with JENNA placed in [place], Melanoma, PAD, presented to [facility] with 1 hour of retrosternal CP (05/13) while watching TV, found to have STEMI. Active Problems: Active Hospital Problems Diagnosis STEMI (ST elevation myocardial infarction) Acute on chronic heart failure with reduced ejection fraction (HFrEF, <= 40%) Coronary artery disease involving skagway coronary artery of skagway heart without angina pectoris Type 2 diabetes [...] symptoms 06/03/24 0400 Labs: Recent Labs 06/06/243 06/05/244 06/04/24 0438 06/03/24 021 WBC 9.81* 10.83* 11.45* 11.16* HGB 14.6 15.3 16.0 15.0 HCT 45.4 46.8 49.6* 47.4 PLATELET 199 219 222 217 MCV 92.5 92.3 92.7 93.1 Recent Labs 06/06/24 0333 06/05/24 0904 06/05/24 0344 06/04/24 2234 06/04/24 1635 06/04/24 1041 06/04/24 0438 06/03/24 021 NA 136 -- 136 -- -- -- [...] in the last 7068 hours. Invalid input(s): [id number] Recent Labs 06/06/24 0653 06/05/24 2231 06/05/24 1622 06/05/24 1134 06/05/24 0727 06/04/24 1943 06/04/24 1526 06/04/24 1109 06/04/24 0711 06/03/24 2005 06/03/24 1748 06/03/24 1114 POCGLU 187 238* 205* 211* 166 175 154 188 182 136 191 166 Heme No results for input(s): LDH, HAPTOGLOBIN, URICACID in the last 168 hours. ABG (Arterial Blood Gas) No results found for: PHART, PO2ART, FNN1EOL, LWR5QLF Microbiology: Microbiology Results (Last 30 days) No results found for the last 720 hours. Imaging: Results for orders placed or performed during the hospital encounter of 06/02/24 XR Chest One View (Exam End: 06/03/2024 2:41 AM) Result Value WORKSTATION ID [id number] Impression No radiographically evident acute cardiopulmonary process. Thank you for letting us participate in the care of this patient. If you are a health care provider and have any questions regarding this report, please contact the number below. For patients who have questions please contact the health healthcare account manager that requested your imaging first. Electronically signed by: Corazon Mauro MD, [facility] ([phone]), at 06/03/2024 3:[address] Chest wo Contrast (Generic) (Exam End: 06/03/2024 4:33 PM) Result Value WORKSTATION ID [id number] Impression Cardiomegaly. Biventricular ICD leads in place. Thank you for letting us participate in the care of this patient. If you are a health care provider and have any questions regarding this report, please contact the number below. For patients who have questions please contact the health healthcare account manager that requested your imaging first. Electronically signed by: Stuart Aponte MD, [facility] ([phone]), at 06/03/2024 4:47 PM TTE: Limited echo performed by fellow internal audit consultant to assess LV function. Left ventricle [...] Dain Colón MD (PGY-1) Cardiology, M1-S2, Pager #[phone] 06/06/24 Associated attestation - Melida Valdes MD [...] a lytic and brought directly to the Fan Mail Clerk. Cardiac catheterization demonstrated multivessel disease with [...] management. Help appreciated Melida Valdes MD Staff Triple Drum Operator * Frederick Dunn MD - 06/05/2024 8:13 AM EDT Images from the original note were not included. . Cardiology Progress Note Patient info: Name: George Mehta : 1955 PCP: Mauro Berumen MD PCP phone number: [phone] Date of Admission: 06/02/2024 ( Hospital Day 3 days ) Attending:Melida Valdes MD ID: 69 y.o. male with a h/o DM type 2, HTN, HLD, current smoker (2-3 cigarettes/day), HFrEF with anICD for low EF (~30%), and CAD with prior [place] x3 with JENNA placed in [place], Melanoma, PAD, presented to [facility] with 1 hour of retrosternal [...] in the last 7068 hours. Invalid input(s): [id number] Recent Labs 06/05/24 1134 06/05/24 0727 06/04/24 1943 06/04/24 1526 06/04/24 1109 06/04/24 0711 06/03/24 2005 06/03/24 1748 06/03/24 1114 06/03/24 0754 06/02/24 2331 POCGLU 211* 166 175 154 188 182 136 191 166 195 156 Heme No results for input(s): LDH, HAPTOGLOBIN, URICACID in the last 168 hours. ABG (Arterial Blood Gas) No results found for: PHART, PO2ART, DZO9EKD, TSH6CXU Microbiology: Microbiology Results (Last 30 days) No results found for the last 720 hours. Imaging: Results for orders placed or performed during the hospital encounter of 06/02/24 XR Chest One View (Exam End: 06/03/2024 2:41 AM) Result Value WORKSTATION ID [id number] Impression No radiographically evident acute cardiopulmonary process. Thank you for letting us participate in the care of this patient. If you are a health care provider and have any questions regarding this report, please contact the number below. For patients who have questions please contact the health healthcare account manager that requested your imaging first. Electronically signed by: Corazon Mauro MD, [facility] ([phone]), at 06/03/2024 3:[address] Chest wo Contrast (Generic) (Exam End: 06/03/2024 4:33 PM) Result Value WORKSTATION ID [id number] Impression Cardiomegaly. Biventricular ICD leads in place. Thank you for letting us participate in the care of this patient. If you are a health care provider and have any questions regarding this report, please contact the number below. For patients who have questions please contact the health healthcare account manager that requested your imaging first. Electronically signed by: Stuart Aponte MD, [facility] ([phone]), at 06/03/2024 4:47 PM TTE: Limited echo performed by fellow internal audit consultant to assess LV function. Left ventricle [...] all the information they need regarding the CONSTRUCTION ANALYST-D.Plan for MRI tomorrow. Starting 40 mg [...] a lytic and brought directly to the Fan Mail Clerk. Cardiac catheterization demonstrated multivessel disease with [...] of Lasix to maintenance of 40. Melida Valeds MD Staff Triple Drum Operator * Migel Javier RN - 06/05/2024 6:21 AM EDT Implanted device record scanned into: Chart Review-->Media-->External Cardiology-->03/25/2024. Medtronic Kizoomia MRI Quad CRTD [id number] Serial #: [id number] DDD mode A + Bi/V Rates 50-130 Migel Javier RN * Dain Colón MD - 06/04/2024 11:16 AM EDT Implant Records Requested Type: CONSTRUCTION ANALYST-D Machine Deicer Element Winder: Medtronic Product: [id number] Amplia MRI MRI compatibility: Compatible for 1.5-3 T Model #: [id number] Placed at: [place], [place] Records requested for MRI: 1. Operative report 2. Implant log I requested that these records be sent to our MRI department, Dain Colón MD 06/04/24 11:58 AM * Dain Colón MD - 06/04/2024 6:57 AM EDT Images from the original note were not included. . Cardiology Progress Note Patient info: Name: George Mehta : 1955 PCP: Mauro Berumen MD PCP phone number: [phone] Date of Admission: 06/02/2024 ( Hospital Day 2 days ) Attending:Delroy Fofana MD ID: 69 y.o. male with a h/o DM type 2, HTN, HLD, current smoker (2-3 cigarettes/day), HFrEF with anICD for low EF (~30%), and CAD with prior [place] x3 with JENNA placed in [place], Melanoma, PAD, presented to [facility] with 1 hour of retrosternal [...] in the last 7068 hours. Invalid input(s): [id number] Recent Labs 06/03/24 2005 06/03/24 1748 06/03/24 1114 06/03/24 0754 06/02/24 2331 POCGLU 136 191 166 195 156 Heme No results for input(s): LDH, HAPTOGLOBIN, URICACID in the last 168 hours. ABG (Arterial Blood Gas) No results found for: PHART, PO2ART, XRY3LYM, LKZ9HPR Microbiology: Microbiology Results (Last 30 days) No results found for the last 720 hours. Imaging: Results for orders placed or performed during the hospital encounter of 06/02/24 XR Chest One View (Exam End: 06/03/2024 2:41 AM) Result Value WORKSTATION ID [id number] Impression No radiographically evident acute cardiopulmonary process. Thank you for letting us participate in the care of this patient. If you are a health care provider and have any questions regarding this report, please contact the number below. For patients who have questions please contact the health healthcare account manager that requested your imaging first. Electronically signed by: Corazon Mauro MD, [facility] ([phone]), at 06/03/2024 3:[address] Chest wo Contrast (Generic) (Exam End: 06/03/2024 4:33 PM) Result Value WORKSTATION ID [id number] Impression Cardiomegaly. Biventricular ICD leads in place. Thank you for letting us participate in the care of this patient. If you are a health care provider and have any questions regarding this report, please contact the number below. For patients who have questions please contact the health healthcare account manager that requested your imaging first. Electronically signed by: Stuart Aponte MD, [facility] ([phone]), at 06/03/2024 4:47 PM TTE: Limited echo performed by fellow internal audit consultant to assess LV function. Left ventricle [...] 40 mg IV given in the labor commissioner; assess diuretic response, consider re-dosing -Continue carvedilol; [...] a lytic and brought directly to the Fan Mail Clerk. Cardiac catheterization demonstrated multivessel disease with [...] Friday -Diuresis with Jovanni Valdes MD Staff Triple Drum Operator * Fatmata Mcallister PT - 06/03/2024 3:29 [...] vs PCI) Fatmata Mcallister PT, MSPT Pager [phone] Inpatient Physical Therapy * Marlin Gómez MD [...] Marlin Gómez MD Cardiology S2, Pager # [phone] 06/03/2024 * Delroy Fofana MD - 06/03/2024 7:16 AM EDT Images from the original note were not included. . Cardiology Progress Note Patient info: Name: George Mehta : 1955 PCP: Mauro Berumen MD PCP phone number: [phone] Date of Admission: 06/02/2024 ( Hospital Day 1 day ) Attending:Nuha Rojo MD ID: 69 y.o. male with a h/o DM type 2, HTN, HLD, current smoker (2-3 cigarettes/day), HFrEF with anICD for low EF (~30%), and CAD with prior [place] x3 with JENNA placed in [place], Melanoma, PAD, presented to [facility] with 1 hour of retrosternal [...] 0-->no symptoms 06/03/24 0400 Labs: Recent Labs 06/03/24 0213 WBC 11.16* [...] in the last 7068 hours. Invalid input(s): [id number] Recent Labs 06/02/24 2331 POCGLU 156 Heme No results for input(s): LDH, HAPTOGLOBIN, URICACID in the last 168 hours. ABG (Arterial Blood Gas) No results found for: PHART, PO2ART, QHB2OYK, KYS7RUJ Microbiology: Microbiology Results (Last 30 days) No results found for the last 720 hours. Imaging: Results for orders placed or performed during the hospital encounter of 06/02/24 XR Chest One View (Exam End: 06/03/2024 2:41 AM) Result Value WORKSTATION ID [id number] Impression No radiographically evident acute cardiopulmonary process. Thank you for letting us participate in the care of this patient. If you are a health care provider and have any questions regarding this report, please contact the number below. For patients who have questions please contact the health healthcare account manager that requested your imaging first. : Limited echo performed by fellow internal audit consultant to assess LV function. Left ventricle [...] 40 mg IV given in the labor commissioner; assess diuretic response, consider re-dosing -Continue carvedilol; [...] of care per Dain Colón MD (medical accounts receivable specialist). Please refer to his note above for details. Very pleasant 69 year old male but he is obese, diabetic, and he is a SMOKER with known prior CAD and moderately reduced LVEF (30%). He has a pacer. History of surgical resection of melanoma on his head. The patient was transferred overnight to [facility] as a STEMI. He was treated initially with a lytic (TNK) and brought directly to the labor commissioner. The cath demonstrated 3VD with diffuse disease [...] - 06/13/2024 10:58 AM EST ICU Blue (#[id number]) H&P Patient info: Name: George Mehta : 1955 PCP: Mauro Berumen MD PCP phone number: [phone] Date of Admission: 06/02/2024 ( Hospital Day 11 days ) Attending:Haja Byrnes MD ID: George Mehta is a 69 y.o. male with a h/o DM type 2, HTN, HLD, current smoker (2-3 cigarettes/day), HFrEF with an ICD for low EF (~30%), and CAD with prior [place] x[place] with JENNA placed in [place], [facility], [facility], presented to [facility] with 1 hour of retrosternal CP (05/13) while watching TV, foundto have STEMI. HPI: Shahnaz Scanlon H&P 06/02 69 y.o. male with a h/o DM type 2, HTN, HLD, current smoker (2-3 cigarettes/day), HFrEF with an ICD for low EF (~30%), and CAD with prior [place] x3 with JENNA placed in [place], [facility], PAD, presented to [facility] with 1 hour of retrosternal CP (05/13) while watching TV. CP was non-radiating, not asso ciated with diaphoresis, nausea, or SOB. Denies orthopnea, MARTÍNEZ, palpitations, or LE edema. ECG showed findings consistent with anterior STEMI. He received TNK and was transferred for PCI. Coronary angiography showed a small, non-dominant RCA with fqnp-nf-kupzgtec disease and a dominant,heavily calcified left system with prior stents in the LAD and OM. The LM bifurcates into the LAD and LCX, both heavily calcified. The proximal LCX has a 75% calcified, aneurysmal lesion, and an 80% calcified lesion distally before a large OM2. OM1 is a WIRELESS OPERATOR with in-stent restenosis, filling retrograde via [...] mg Lasix was administered in the labor commissioner. Cardiac surgery was consulted and plan for [...] Blood Gas) No results for input(s): PHART, LAA3HQQ, PO2ART, YUH0OAQ, LACTATEVEN, TGI5QLX, PFRATIOART2 in the last 168 hours. VBG (Venous Blood Gas) Recent Labs 06/10/24 1742 PHVEN 7.34 PO2VEN 24 PQD3SOX 27.4 Mixed Venous Sat No results for input(s): H2RUIZ4 in the last 168 hours. Intake/Output Summary [...] 06/13/24 Proximal;Right;Anterior Femoral (Active) Site Assessment Clean;Dry;Intact 11/10/24 0940 Intra-Aortic Balloon Pump 06/13/24 0937 (Active) [...] in the last 7068 hours. Invalid input(s): [id number] Recent Labs 06/13/24 0741 06/13/24 0325 06/12/24 2353 06/12/24 1932 06/12/24 1541 06/12/24 1121 06/12/24 0800 06/12/24 0425 06/11/24 2356 06/11/24 2025 06/11/24 1624 06/11/24 1108 POCGLU 126 99 141 158 113 207* 169 132 135 210* 81 233* Heme No results for input(s): LDH, HAPTOGLOBIN, URICACID in the last 168 hours. ABG (Arterial Blood Gas) No results for input(s): PHART, HIT6NXD, PO2ART, LXG4YRA, LACTATEVEN, QTH3HHK, PFRATIOART2 in the last 168 hours. VBG (Venous Blood Gas) Recent Labs 06/10/24 1742 PHVEN 7.34 PO2VEN 24 CAF6NEO 27.4 Mixed Venous Sat No results for input(s): F7NHZI7 in the last 168 hours. Microbiology: Microbiology [...] Plan for CABG 06/14. Patient NPO at [place]. #ASCVD / STEMI: -Holding Plavix; continue ASA [...] (Give Meds) Daily Healthy Menu Choices/Cardiac diet ([facility]-Diet) DVT Prophylaxis: SCD GI Prophylaxis: None Dispo: [...] is in the chart Rebeca Prado MD Warehouse Shift Supervisor PGY6 [phone] * Shahnaz Scanlon MD - [...] prior [place] x3 with JENNA placed in [place], [facility], PAD, presented to [facility] with 1 hour of retrosternal CP (05/13) while watching TV. CP was non-radiating, not assoc iated with diaphoresis, nausea, or SOB. Denies orthopnea, MARTÍNEZ, palpitations, or LE edema. ECG showed findings consistent with anterior STEMI. He received TNK and was transferred for PCI. Coronary angiography showed a small, non-dominant RCA with gnjb-nf-agezbvps disease and a dominant,heavily calcified left system with prior stents in the LAD and OM. The LM bifurcates into the LAD and LCX, both heavily calcified. The proximal LCX has a 75% calcified, aneurysmal lesion, and an 80% calcified lesion distally before a large OM2. OM1 is a WIRELESS OPERATOR with in-stent restenosis, filling retrograde via [...] mg Lasix was administered in the labor commissioner. Past Medical History: As per HPI Significant [...] Affect: Mood normal. Behavior: Behavior normal. Diagnostics: [facility] 06/02/2024 Coronary angiography revealed small non [...] 40 mg IV given in the labor commissioner; assess diuretic response. -Continue carvedilol; hold Entresto [...] & Follow-up Care: Contact information for follow-up [facility] [address] [facility] [address] Cardiac Rehab, [address] [facility] [address] JAMIE GRAMAJO confirmed with [facility] that they [...] Roberts RN - 06/18/2024 10:50 AM EST [facility] CARDIAC [facility]ATION George Mehta was seen today regarding participation in the outpatient Phase 2 Cardiac Rehabilitation at [facility]. The patient agrees to a [...] Agency/Support Group Needs: Homecare agency Agency Choices: [facility] Home Health Services: Medication checks, Registered Nurse, Physical Therapy Agency Referrals: pending clinical course and PT/OT recs [facility] [address] [facility] [address] PHONE: [phone] FAX: [phone] Transportation: family or friend will provide Barriers [...] recs Patient is insured through: Primary Insurance: [facility] [employer] MEDICARE Payor: [facility] MANAGED MEDICARE / Plan: [facility] MANAGED MEDICARE COMPLETE / Product Type: *No Product type* / Secondary Insurance: N/A Plan for discharge is: Home w/ Services Outpatient Agency/Support Group Needs: Homecare agency Agency Choices: [place] [facility]: Medication checks, Registered Nurse, Physical Therapy Agency Referrals: pending clinical course and PT/OT recs [facility] [address] [place] [address] PHONE: [phone] FAX: [phone] Transportation: family or friend will provide Barriers [...] Loja MD - 06/14/2024 8:48 AM EST [facility] Operative Note Patient Name: George Mehta : [id number] MR#: [id number] Case Date: 06/14/2024 Surgeon: Surgeons and Role: * Bobby Loja MD - Primary * Rashi Bass PA - Physician Press Puller Preoperative diagnosis: CAD, MARIALUISA flickering mass on [...] COUNT, FIBRINOGEN (Canceled), HEMOGLOBIN AND HEMATOCRIT, BLOOD Elliott Allison Shankar 06/14/2024 1123 B : Blood Blood, Arterial [...] procedures today and tomorrow. Report called to [facility] - all belongings with patient. PLAN MOVING FORWARD: clinical laboratory aide and transfer to [facility]. INDIVIDUALIZED FALL PREVENTION [...] No Patient is insured through: Primary Insurance: [facility] MANAGED MEDICARE Payor: [facility] MANAGED MEDICARE / Plan: [facility] MANAGED MEDICARE COMPLETE / Product Type: *No Product type* / Secondary Insurance: N/A Plan for discharge is: Home w/ Services Outpatient Agency/Support Group Needs: Homecare agency, Agency Choices: [facility] Home Health Services: Medication checks, Registered Nurse, Physical Therapy Agency Referrals: [facility] [address] [place] [address] RN / PT Routed 06/10 Transportation: family [...] with home health services when medically ready. director park/Neon Sign Installer will continue to follow patient???s progress and remain available if situation changes for coordination of care, psychosocial support and/or discharge planning. Anticipated Date of Discharge: 06/18/2024 Mariia Montero RN Extension [phone] * Plan of Care - Migel Javier [...] No Patient is insured through: Primary Insurance: [employer] MANAGED MEDICARE Payor: [employer] MANAGED MEDICARE / Plan: [facility] [employer] MEDICARE COMPLETE / Product Type: *No Product [...] consult for high risk PCI vs CABG director park/Neon Sign Installer will continue to follow patient???s progress and remain available if situation changes for coordination of care, psychosocial support and/or discharge planning. Anticipated Date of Discharge: 06/11/2024 Mariia Montero RN Extension [phone] * Plan of Care - Becca Hope [...] CABG and to provide a review of residential diabetes care. Diabetes History: George Mehta has [...] Breakfast- varies - eggs with khoury or syriac muffin Lunch- turkey sandwich Supper- meat and [...] Infusions: heparin (porcine) infusion 1,400 Units/hr (06/06/24 7357) PRN: insulin lispro, potassium chloride ER OR [...] Baumann APRN Endocrinology Diabetes Management Service Pager: [phone] Weekends please page [phone] 80 minute visit was spent in counseling [...] Plan of Care Review 06/05/2024631 by Migel Javier, RN Outcome: Ongoing (Interventions Implemented as Appropriate) [...] (Interventions Implemented as Appropriate) 06/05/2024631 by Migel Javier, JAMIE Outcome: Ongoing (Interventions Implemented as Appropriate) Problem: Bleeding (Cardiac Catheterization) Goal: Absence of Bleeding 06/05/2024631 by Migel Javier RN Outcome: Ongoing (Interventions Implemented as Appropriate) 06/05/2024631 by Migel Javier RN Outcome: Ongoing (Interventions Implemented as Appropriate) Problem: Contrast-Induced Injury Risk (Cardiac Catheterization) Goal: Absence of Contrast-Induced Injury 06/05/2024631 by Migel Javire RN Outcome: Outcome (s) achieved 06/05/2024631 by [...] remote melanoma, and smoker who presented to [facility] last night via EMS after developing acute, severe chest pain while watching TV. Patient was ruled in for STEMI, given TNK, ASA, plavix, heparin gtt, and sent to [facility] for coronary angiography. LHC demonstrated severely calcified left coronary system with notable LCx 75/80% lesions and WIRELESS OPERATOR OM1 with ISR with collateral retrograde [...] is large. OM1 appears to be a WIRELESS OPERATOR, with in stentrestenosis and fills retrograde [...] y.o. male admitted with STEMI s/p TNK, [facility] showing multivessel CAD including ISR, no [...] to our service. Signed: Paula Treviño PA-C [facility] Section of Cardiac Surgery Date: 06/03/2024 * Initial Assessments - Catina Estrada MSW - 06/03/2024 10:32 AM EDT Office of Care Management Initial Assessment CHINA Humphrey reviewed record and discussed patient with Care Team. Source of Information: Team, bedside nurse, medical record, and Patient LAUNDRY WORKER Introduced self/reviewed role; services accepted. Admitted From: [...] receiving care in [place] must abide by [place] law. The hierarchy [...] (i) The agent with financial power of closing agent or a conservator appointed in accordance with [...] or living in a long term (including now)?: No In the past 12 months has the electric, gas, oil, or water Virtual 3-D Display for Smartphones threatened to shut off services in your [...] in the bathroom) Home Address confirmed as: [address] [place] [address] [address] [facility] [address] Social & Family Supports: All names listed [...] Pertinent/Service Specific Information: Health/Prescription Coverage: Primary Insurance: [facility] MEDICARE Payor: [facility] MEDICARE / Plan: AARP RPPO MANAGED MEDICARE COMPLETE / Product Type: *No Product type* / Secondary Insurance: N/A ; Prescription Coverage: Yes Preferred Pharmacy: [id number] - [facility], [place] - [address] [place] [id number] Status: Patient is a : No Primary Care Provider confirmed: Mauro Berumen MD [phone] Patient/Caregiver Goals of Treatment: Potential Needs for [...] care as indicated. CHINA Min Cardiology, [phone]. [phone] * Brief Op Note - Angeles Gaxiola PA - 06/03/2024 12:23 AM EDT Preliminary Cardiac Catheterization Procedure Note: Patient Name: George Mehta : [id number] MR#: [id number] Case Date: 06/02/2024 - 06/03/2024 Production Worker: Surgeons and Role: * Nuha Shen MD - Primary * Angeles Gaxiola PA - Physician Press Puller Preoperative diagnosis: STEMI Postoperative diagnosis: * STEMI * Procedure(s) performed: RRA access [facility] Coronary angiogram IVUS LM/LAD/LCX Access: 6 [...] prior [place] and 3 stents historically (in [place]) who presented to [facility] with 1 hour of rest [...] is large. OM1 appears to be a WIRELESS OPERATOR, with in stentrestenosis and fills retrograde [...] 40 mg of lasix in the labor commissioner. Recommendations: surgical consult for possible open revascularization; [...] 2:00 PM EST Office Visit Cardiology at [address] [id number] Moi Falcon MD [facility] [place] [address] Scheduled Orders Name Type Priority Associated Diagnoses [...] 7:20 AM EST Coronary artery disease involving sk[place] coronary artery of sk[place] heart without angina pectoris POC, GLUCOSE Routine [...] * POC, GLUCOSE (06/21/2024 3:51 AM EST) [facility] Signature Glucometer, POC 142 65 - 199 mg/dL 06/21/2024 3:51 AM EST [facility] Comment:Supplemental ranges: <140 mg/dL before meals <180 mg/dL all other times of the day. Blood CAPILLARY BLOOD / Unknown 06/21/2024 3:51 AM EST 06/21/2024 3:51 AM EST Bobby Loja MD POINT OF CARE TEST O NIKA [facility] [place] [address] * (ABNORMAL) Basic Metabolic Panel (06/21/2024 2:09 AM EST) Glucose 169 65 - 199 mg/dL 06/21/2024 3:10 AM [facility] Comment:Glucose Concentratio n >=200 mg/dL plus symptoms is consistent with Diabetes Mellitus. Blood Urea Nitrogen 27(H) 10 - 20 mg/dL 06/21/2024 3:10 AM [facility] Creatinine 1.24 0.80 - 1.50 mg/dL 06/21/2024 3:10 AM [facility] Sodium 138 135 - 145 mMol/L 06/21/2024 3:10 AM [facility] Potassium 4.2 3.5 - 5.0 mMol/L 06/21/2024 3:10 AM [facility] Chloride 100 98 - 107 mMol/L 06/21/2024 3:10 AM [facility] Carbon Dioxide 27 22 - 31 mMol/L 06/21/2024 3:10 AM [facility] Anion Gap 11 5 - 15 mMol/L 06/21/2024 3:10 AM [facility] Calcium 8.7 8.5 - 10.5 mg/dL 06/21/2024 3:10 AM [facility] Est Glomerular Filtration Rate - Male 64 mL/min/1. 73 m?? 06/21/2024 3:10 AM [facility] Comment: This patient's estimated GFR [...] APRN CHEMISTRY ORDERABL ES Performing Organization Address City/[facility]/ZIP Co de Phone Number [facility] [place] [address] * POC, GLUCOSE (06/21/2024 12:04 AM EST) Glucometer, POC 157 65 - 199 mg/dL 06/21/2024 12:04 AM EST [facility] Comment:Supplemental ranges: <140 mg/dL before meals <180 mg/dL all other times of the day. Blood CAPILLARY BLOOD / Unknown 06/21/2024 12:04 AM EST 06/21/2024 12:04 AM EST Bobby Loja MD POINT OF CARE TEST O NIKA Performing Organization Address [facility] Co de Phone Number [facility] [place] [address] * POC, GLUCOSE (06/20/2024 11:14 PM EST) Glucometer, POC 67 65 - 199 mg/dL 06/20/2024 11:14 PM EST [facility] Comment:Supplemental ranges: <140 mg/dL before meals <180 mg/dL all other times of the day. Blood CAPILLARY BLOOD / Unknown 06/20/2024 11:14 PM EST 06/20/2024 11:14 PM EST Bobby Loja MD POINT OF CARE TEST O NIKA Performing Organization Address City/[facility]/ZIP Co de Phone Number [facility] [place] [address] * POC, GLUCOSE (06/20/2024 7:16 PM EST) Glucometer, POC 132 65 - 199 mg/dL 06/20/2024 7:16 PM EST [facility] Comment:Supplemental ranges: <140 mg/dL before meals <180 mg/dL all other times of the day. Blood CAPILLARY BLOOD / Unknown 06/20/2024 7:16 PM EST 06/20/2024 7:16 PM EST Bobby Loja MD POINT OF CARE TEST O NIKA [facility] [place] [address] * POC, GLUCOSE (06/20/2024 3:39 PM EST) Glucometer, POC 124 65 - 199 mg/dL 06/20/2024 3:40 PM EST [facility] Comment:Supplemental ranges: <140 mg/dL before meals <180 mg/dL all other times of the day. Blood CAPILLARY BLOOD / Unknown 06/20/2024 3:39 PM EST 06/20/2024 3:40 PM EST Bobby Loja MD POINT OF CARE TEST O NIKA Performing Organization Address City/[facility]/ZIP Co de Phone Number [facility] [place] [address] * POC, GLUCOSE (06/20/2024 12:02 PM EST) Glucometer, POC 173 65 - 199 mg/dL 06/20/2024 12:03 PM EST [facility] Comment:Supplemental ranges: <140 mg/dL before meals <180 mg/dL all other times of the day. Blood CAPILLARY BLOOD / Unknown 06/20/2024 12:02 PM EST 06/20/2024 12:03 PM EST Bobby Loja MD POINT OF CARE TEST O NIKA [facility] [place] [address] * POC, GLUCOSE (06/20/2024 7:10 AM EST) Glucometer, POC 130 65 - 199 mg/dL 06/20/2024 7:11 AM EST [facility] Comment:Supplemental ranges: <140 mg/dL before meals <180 mg/dL all other times of the day. Blood CAPILLARY BLOOD / Unknown 06/20/2024 7:10 AM EST 06/20/2024 7:11 AM EST Bobby oLja MD POINT OF CARE TEST O RDERABLES [facility] [place] [address] * (ABNORMAL) Basic Metabolic Panel (06/20/2024 2:28 AM EST) Glucose 79 65 - 199 mg/dL 06/20/2024 3:06 AM [facility] Comment:Glucose Concentratio n >=200 mg/dL plus symptoms is consistent with Diabetes Mellitus. Blood Urea Nitrogen 38(H) 10 - 20 mg/dL 06/20/2024 3:06 AM [facility] Creatinine 1.39 0.80 - 1.50 mg/dL 06/20/2024 3:06 AM [facility] Sodium 137 135 - 145 mMol/L 06/20/2024 3:06 AM [facility] Potassium 3.6 3.5 - 5.0 mMol/L 06/20/2024 3:06 AM [facility] Chloride 100 98 - 107 mMol/L 06/20/2024 3:06 AM [facility] Carbon Dioxide 29 22 - 31 mMol/L 06/20/2024 3:06 AM [facility] Anion Gap 8 5 - 15 mMol/L 06/20/2024 3:06 AM [facility] Calcium 8.4(L) 8.5 - 10.5 mg/dL 06/20/2024 3:06 AM [facility] Est Glomerular Filtration Rate - Male 56 mL/min/1. 73 m?? 06/20/2024 3:06 AM EST [facility] Comment: This patient's estimated GFR [...] APRN CHEMISTRY ORDERABL ES Performing Organization Address City/[facility]/ZIP Co de Phone Number [facility] [place] [address] * POC, GLUCOSE (06/20/2024 12:32 AM EST) Glucometer, POC 86 65 - 199 mg/dL 06/20/2024 12:32 AM EST [facility] Comment:Supplemental ranges: <140 mg/dL before meals <180 mg/dL all other times of the day. Blood CAPILLARY BLOOD / Unknown 06/20/2024 12:32 AM EST 06/20/2024 12:32 AM EST Bobby Loja MD POINT OF CARE TEST O RDERABLES [facility] [place] [address] * (ABNORMAL) POC, GLUCOSE (06/20/2024 12:02 AM EST) Glucometer, POC 59(L) 65 - 199 mg/dL 06/20/2024 12:02 AM EST [facility] Comment:Supplemental ranges: <140 mg/dL before meals <180 mg/dL all other times of the day. Blood CAPILLARY BLOOD / Unknown 06/20/2024 12:02 AM EST 06/20/2024 12:03 AM EST Narrative Authorizing Provider Result Saranya Loja MD POINT OF CARE TEST O NIKA Performing Organization Address City/[facility] Co de Phone Number [facility] [place] [address] * POC, GLUCOSE (06/19/2024 8:15 PM EST) Glucometer, POC 131 65 - 199 mg/dL 06/19/2024 8:15 PM EST [facility] Comment:Supplemental ranges: <140 mg/dL before meals <180 mg/dL all other times of the day. Blood CAPILLARY BLOOD / Unknown 06/19/2024 8:15 PM EST 06/19/2024 8:15 PM EST Bobby Loja MD POINT OF CARE TEST Abimael MAHER Performing Organization Address [facility] Co de Phone Number [facility] [place] [address] * POC, GLUCOSE (06/19/2024 6:01 PM EST) Glucometer, POC 129 65 - 199 mg/dL 06/19/2024 6:01 PM EST [facility] Comment:Supplemental ranges: <140 mg/dL before meals <180 mg/dL all other times of the day. Blood CAPILLARY BLOOD / Unknown 06/19/2024 6:01 PM EST 06/19/2024 6:02 PM EST Narrative Authorizing Provider Result Saranya Loja MD POINT OF CARE TEST O NIKA Performing Organization Address City/[facility] Co de Phone Number [facility] [place] [address] * POC, GLUCOSE (06/19/2024 4:51 PM EST) Glucometer, POC 155 65 - 199 mg/dL 06/19/2024 4:51 PM EST [facility] Comment:Supplemental ranges: <140 mg/dL before meals <180 mg/dL all other times of the day. Blood CAPILLARY BLOOD / Unknown 06/19/2024 4:51 PM EST 06/19/2024 4:51 PM EST Bobby Loja MD POINT OF CARE TEST O NIKA Performing Organization Address City/[facility]/ZIP Co de Phone Number [facility] [place] [address] * POC, GLUCOSE (06/19/2024 12:37 PM EST) Glucometer, POC 136 65 - 199 mg/dL 06/19/2024 12:37 PM EST [facility] Comment:Supplemental ranges: <140 mg/dL before meals <180 mg/dL all other times of the day. Blood CAPILLARY BLOOD / Unknown 06/19/2024 12:37 PM EST 06/19/2024 12:37 PM EST Bobby Loja MD POINT OF CARE TEST O NIKA Performing Organization Address City/[facility]/ZIP Co de Phone Number [facility] [place] [address] * POC, GLUCOSE (06/19/2024 11:20 AM EST) Glucometer, POC 185 65 - 199 mg/dL 06/19/2024 11:21 AM EST [facility] Comment:Supplemental ranges: <140 mg/dL before meals <180 mg/dL all other times of the day. Blood CAPILLARY BLOOD / Unknown 06/19/2024 11:20 AM EST 06/19/2024 11:21 AM EST Bobby Loja MD POINT OF CARE TEST O NIKA [facility] [place] [address] * POC, GLUCOSE (06/19/2024 7:21 AM EST) Glucometer, POC 125 65 - 199 mg/dL 06/19/2024 7:21 AM EST [facility] Comment:Supplemental ranges: <140 mg/dL before meals <180 mg/dL all other times of the day. Blood CAPILLARY BLOOD / Unknown 06/19/2024 7:21 AM EST 06/19/2024 7:22 AM EST Bobby Loja MD POINT OF CARE TEST O NIKA [facility] [place] [address] * POC, GLUCOSE (06/19/2024 4:52 AM EST) Glucometer, POC 125 65 - 199 mg/dL 06/19/2024 4:52 AM EST [facility] Comment:Supplemental ranges: <140 mg/dL before meals <180 mg/dL all other times of the day. Blood CAPILLARY BLOOD / Unknown 06/19/2024 4:52 AM EST 06/19/2024 4:52 AM EST Bobby Loja MD POINT OF CARE TEST O NIKA Performing Organization Address [facility]/ZIP Co de Phone Number [facility] [place] [address] * POC, GLUCOSE (06/19/2024 4:13 AM EST) Glucometer, POC 67 65 - 199 mg/dL 06/19/2024 4:13 AM EST [facility] Comment:Supplemental ranges: <140 mg/dL before meals <180 mg/dL all other times of the day. Blood CAPILLARY BLOOD / Unknown 06/19/2024 4:13 AM EST 06/19/2024 4:13 AM EST Bobby Loja MD POINT OF CARE TEST O NIKA [facility] [place] [address] * (ABNORMAL) POC, GLUCOSE (06/19/2024 3:48 AM EST) Glucometer, POC 51(LLL) 65 - 199 mg/dL 06/19/2024 3:48 AM EST [facility] Comment:Supplemental ranges: <140 mg/dL before meals <180 mg/dL all other times of the day. Blood CAPILLARY BLOOD / Unknown 06/19/2024 3:48 AM EST 06/19/2024 3:48 AM EST Bobby Loja MD POINT OF CARE TEST O RDERABLES [facility] [place] [address] * (ABNORMAL) Basic Metabolic Panel (06/19/2024 3:44 AM EST) Glucose 53(LLL) 65 - 199 mg/dL 06/19/2024 4:48 AM EST [facility] Comment:Glucose Concentratio n >=200 mg/dL plus symptoms is consistent with Diabetes Mellitus. Blood Urea Nitrogen 42(H) 10 - 20 mg/dL 06/19/2024 4:48 AM [facility] Creatinine 1.29 0.80 - 1.50 mg/dL 06/19/2024 4:48 AM [facility] Sodium 138 135 - 145 mMol/L 06/19/2024 4:48 AM [facility] Potassium 3.6 3.5 - 5.0 mMol/L 06/19/2024 4:48 AM [facility] Chloride 100 98 - 107 mMol/L 06/19/2024 4:48 AM [facility] Carbon Dioxide 29 22 - 31 mMol/L 06/19/2024 4:48 AM [facility] Anion Gap 9 5 - 15 mMol/L 06/19/2024 4:48 AM [facility] Calcium 8.8 8.5 - 10.5 mg/dL 06/19/2024 4:48 AM EST [facility] Est Glomerular Filtration Rate - Male 61 mL/min/1. 73 m?? 06/19/2024 4:48 AM EST [facility] Comment: This patient's estimated GFR [...] APRN CHEMISTRY ORDERABL ES Performing Organization Address City/[facility]/ZIP Co de Phone Number [facility] [place] [address] * POC, GLUCOSE (06/19/2024 12:23 AM EST) Glucometer, POC 82 65 - 199 mg/dL 06/19/2024 12:23 AM EST [facility] Comment:Supplemental ranges: <140 mg/dL before meals <180 mg/dL all other times of the day. Blood CAPILLARY BLOOD / Unknown 06/19/2024 12:23 AM EST 06/19/2024 12:23 AM EST Bobby Loja MD POINT OF CARE TEST O RDERABLES [facility] [place] [address] * POC, GLUCOSE (06/18/2024 11:08 PM EST) Glucometer, POC 73 65 - 199 mg/dL 06/18/2024 11:08 PM EST [facility] Comment:Supplemental ranges: <140 mg/dL before meals <180 mg/dL all other times of the day. Blood CAPILLARY BLOOD / Unknown 06/18/2024 11:08 PM EST 06/18/2024 11:08 PM EST Bobby Loja MD POINT OF CARE TEST O NIKA [facility] [place] [address] * POC, GLUCOSE (06/18/2024 7:32 PM EST) Glucometer, POC 167 65 - 199 mg/dL 06/18/2024 7:32 PM EST [facility] Comment:Supplemental ranges: <140 mg/dL before meals <180 mg/dL all other times of the day. Blood CAPILLARY BLOOD / Unknown 06/18/2024 7:32 PM EST 06/18/2024 7:32 PM EST Bobby Loja MD POINT OF CARE TEST O NIKA Performing Organization Address City/[facility]/ZIP Co de Phone Number [facility] [place] [address] * POC, GLUCOSE (06/18/2024 6:08 PM EST) Glucometer, POC 140 65 - 199 mg/dL 06/18/2024 6:09 PM EST [facility] Comment:Supplemental ranges: <140 mg/dL before meals <180 mg/dL all other times of the day. Blood CAPILLARY BLOOD / Unknown 06/18/2024 6:08 PM EST 06/18/2024 6:09 PM EST Bobby Loja MD POINT OF CARE TEST O NIKA [facility] [place] [address] * POC, GLUCOSE (06/18/2024 4:17 PM EST) Glucometer, POC 144 65 - 199 mg/dL 06/18/2024 4:17 PM EST [facility] Comment:Supplemental ranges: <140 mg/dL before meals <180 mg/dL all other times of the day. Blood CAPILLARY BLOOD / Unknown 06/18/2024 4:17 PM EST 06/18/2024 4:17 PM EST Bobby Loja MD POINT OF CARE TEST O NIKA [facility] [place] [address] * POC, GLUCOSE (06/18/2024 12:09 PM EST) Glucometer, POC 180 65 - 199 mg/dL 06/18/2024 12:09 PM EST [facility] Comment:Supplemental ranges: <140 mg/dL before meals <180 mg/dL all other times of the day. Blood CAPILLARY BLOOD / Unknown 06/18/2024 12:09 PM EST 06/18/2024 12:09 PM EST Bobby Loja MD POINT OF CARE TEST O NIKA Performing Organization Address City/[facility]/ZIP Co de Phone Number [facility] [place] [address] * POC, GLUCOSE (06/18/2024 7:49 AM EST) Glucometer, POC 125 65 - 199 mg/dL 06/18/2024 7:50 AM EST [facility] Comment:Supplemental ranges: <140 mg/dL before meals <180 mg/dL all other times of the day. Blood CAPILLARY BLOOD / Unknown 06/18/2024 7:49 AM EST 06/18/2024 7:50 AM EST Bobby Loja MD POINT OF CARE TEST O NIKA [facility] [place] [address] * (ABNORMAL) Basic Metabolic Panel (06/18/2024 4:19 AM EST) Glucose 103 65 - 199 mg/dL 06/18/2024 5:03 AM [facility] Comment:Glucose Concentratio n >=200 mg/dL plus symptoms is consistent with Diabetes Mellitus. Blood Urea Nitrogen 43(H) 10 - 20 mg/dL 06/18/2024 5:03 AM [facility] Creatinine 1.45 0.80 - 1.50 mg/dL 06/18/2024 5:03 AM [facility] Sodium 131(L) 135 - 145 mMol/L 06/18/2024 5:03 AM [facility] Potassium 4.2 3.5 - 5.0 mMol/L 06/18/2024 5:03 AM [facility] Chloride 97(L) 98 - 107 mMol/L 06/18/2024 5:03 AM [facility] Carbon Dioxide 25 22 - 31 mMol/L 06/18/2024 5:03 AM [facility] Anion Gap 9 5 - 15 mMol/L 06/18/2024 5:03 AM [facility] Calcium 8.5 8.5 - 10.5 mg/dL 06/18/2024 5:03 AM [facility] Est Glomerular Filtration Rate - Male 53 mL/min/1. 73 m?? 06/18/2024 5:03 AM [facility] Comment: This patient's estimated GFR [...] APRN CHEMISTRY ORDERABL ES Performing Organization Address [facility]/ZIP Co de Phone Number [facility] [place] [address] * POC, GLUCOSE (06/18/2024 3:50 AM EST) Glucometer, POC 99 65 - 199 mg/dL 06/18/2024 3:51 AM EST [facility] Comment:Supplemental ranges: <140 mg/dL before meals <180 mg/dL all other times of the day. Blood CAPILLARY BLOOD / Unknown 06/18/2024 3:50 AM EST 06/18/2024 3:51 AM EST Bobby Loja MD POINT OF CARE TEST O NIKA Performing Organization Address [facility] Co de Phone Number [facility] [place] [address] * POC, GLUCOSE (06/17/2024 11:10 PM EST) Glucometer, POC 92 65 - 199 mg/dL 06/17/2024 11:10 PM EST [facility] Comment:Supplemental ranges: <140 mg/dL before meals <180 mg/dL all other times of the day. Blood CAPILLARY BLOOD / Unknown 06/17/2024 11:10 PM EST 06/17/2024 11:10 PM EST Bobby Loja MD POINT OF CARE TEST O NIKA Performing Organization Address City/[facility]/ZIP Co de Phone Number [facility] [place] [address] * POC, GLUCOSE (06/17/2024 7:54 PM EST) Glucometer, POC 126 65 - 199 mg/dL 06/17/2024 7:54 PM EST [facility] Comment:Supplemental ranges: <140 mg/dL before meals <180 mg/dL all other times of the day. Blood CAPILLARY BLOOD / Unknown 06/17/2024 7:54 PM EST 06/17/2024 7:54 PM EST Bobby Loja MD POINT OF CARE TEST O NIKA Performing Organization Address [facility] Co de Phone Number [facility] [place] [address] * POC, GLUCOSE (06/17/2024 4:07 PM EST) Glucometer, POC 141 65 - 199 mg/dL 06/17/2024 4:12 PM EST [facility] Comment:Supplemental ranges: <140 mg/dL before meals <180 mg/dL all other times of the day. Blood CAPILLARY BLOOD / Unknown 06/17/2024 4:07 PM EST 06/17/2024 4:12 PM EST Bobby Loja MD POINT OF CARE TEST O NIKA Performing Organization Address [facility] de Phone Number [facility] [place] [address] * XR Chest PA & Lateral (Generic) (06/17/2024 1:46 PM EST) WORKSTATION ID [id number] RAD Anatomical Region Laterality Modality Chest N/A [...] have questions please contact the health healthcare account manager that requested your imaging first. ? Electronically signed by: Josselyn Spence MD, [facility] ([phone]), at 06/17/2024 4:49 PM Narrative 06/17/2024 4:49 [...] who have questions please contactthe health healthcare account manager that requested your imaging first. Electronically signed by: Josselyn Spence MD, [facility]([phone]), at 06/17/2024 4:49 PM Keila Hanley APRN IMG DX ORDERABLES * (ABNORMAL) POC, GLUCOSE (06/17/2024 11:04 AM EST) Glucometer, POC 245(H) 65 - 199 mg/dL 06/17/2024 11:04 AM EST [facility] Comment:Supplemental ranges: <140 mg/dL before meals <180 mg/dL all other times of the day. Blood CAPILLARY BLOOD / Unknown 06/17/2024 11:04 AM EST 06/17/2024 11:04 AM EST Bobby Loja MD POINT OF CARE TEST O RDERAPIETER Performing Organization Address [facility] Co de Phone Number [facility] [place] [address] * POC, GLUCOSE (06/17/2024 7:49 AM EST) Glucometer, POC 141 65 - 199 mg/dL 06/17/2024 7:55 AM EST [facility] Comment:Supplemental ranges: <140 mg/dL before meals <180 mg/dL all other times of the day. Blood CAPILLARY BLOOD / Unknown 06/17/2024 7:49 AM EST 06/17/2024 7:55 AM EST Bobby Loja MD POINT OF CARE TEST O NIKA Performing Organization Address [facility] Co de Phone Number [facility] [place] [address] * POC, GLUCOSE (06/17/2024 4:16 AM EST) Glucometer, POC 139 65 - 199 mg/dL 06/17/2024 4:16 AM EST [facility] Comment:Supplemental ranges: <140 mg/dL before meals <180 mg/dL all other times of the day. Blood CAPILLARY BLOOD / Unknown 06/17/2024 4:16 AM EST 06/17/2024 4:17 AM EST Bobby Loja MD POINT OF CARE TEST O NIKA [facility] [place] [address] * Lactate, Whole Blood (06/17/2024 2:39 AM EST) [facility] Lactate, Whole Blood 1.3 0.5 - 2.2 mmol/L 06/17/2024 2:46 AM EST [facility] Blood VENOUS BLOOD SPECIMEN / Unknown Venipuncture / Unknown 06/17/2024 2:39 AM EST 06/17/2024 2:43 AM EST Bobby Loja MD CHEMISTRY ORDERABLES Performing Organization Address City/[facility]/ZIP Co de Phone Number [facility] [place] [address] * (ABNORMAL) Hemogram (06/17/2024 2:39 AM EST) [facility] [facility] White Blood Cell 13.53(H) 4.00 - 9.50 x10(3)/mc L 06/17/2024 2:53 AM [facility] Red Blood Cell 3.55(L) 4.58 - 5.54 x10(6)/mc L 06/17/2024 2:53 AM [facility] Hemoglobin 10.8(L) 13.7 - 16.5 g/dL 06/17/2024 2:53 AM [facility] Hematocrit 33.0(L) 40.5 - 48.5 % 06/17/2024 2:53 AM [facility] Mean Cell Volume 93.0 82.9 - 93.1 fL 06/17/2024 2:53 AM [facility] Mean Cell Hemoglobin 30.4 27.5 - 32.1 pg 06/17/2024 2:53 AM [facility] Mean Cell Hemoglobin Concentration 32.7 32.0 - 35.7 g/dL 06/17/2024 2:53 AM [facility] Platelet 101(L) 145 - 357 x10(3)/mc L 06/17/2024 2:53 AM EST [facility] Mean Platelet Volume 10.4 7.6 - 12.9 fL 06/17/2024 2:53 AM [facility] RDW Standard Deviation 48.4(H) 36.0 - 45.0 fL 06/17/2024 2:53 AM [facility] RDW coefficient of variation 14.1(H) 11.4 - 13.8 % 06/17/2024 2:53 AM [facility] NRBC% auto 0.0 % 06/17/2024 2:53 AM [facility] NRBC Absolute <0.01 <0.01 x10(3)/mc L 06/17/2024 2:53 AM [facility] Blood VENOUS BLOOD SPECIMEN / Unknown Venipuncture / Unknown 06/17/2024 2:39 AM EST 06/17/2024 2:43 AM EST Bobby Loaj MD HEMATOLOGY ORDERABLE S [facility] [place] [address] * (ABNORMAL) Basic Metabolic Panel (06/17/2024 2:39 AM EST) Glucose 149 65 - 199 mg/dL 06/17/2024 3:14 AM [facility] Comment:Glucose Concentratio n >=200 mg/dL plus symptoms is consistent with Diabetes Mellitus. Blood Urea Nitrogen 42(H) 10 - 20 mg/dL 06/17/2024 3:14 AM [facility] Creatinine 1.52(H) 0.80 - 1.50 mg/dL 06/17/2024 3:14 AM [facility] Sodium 133(L) 135 - 145 mMol/L 06/17/2024 3:14 AM [facility] Potassium 4.5 3.5 - 5.0 mMol/L 06/17/2024 3:14 AM [facility] Chloride 101 98 - 107 mMol/L 06/17/2024 3:14 AM EST [facility] Carbon Dioxide 23 22 - 31 mMol/L 06/17/2024 3:14 AM EST [facility] Anion Gap 9 5 - 15 mMol/L 06/17/2024 3:14 AM [facility] Calcium 8.8 8.5 - 10.5 mg/dL 06/17/2024 3:14 AM EST [facility] Est Glomerular Filtration Rate - Male 50 mL/min/1. 73 m?? 06/17/2024 3:14 AM EST [facility] Comment: This patient's estimated GFR [...] AM EST Bobby Loja MD CHEMISTRY ORDERABLES [facility] [place] [address] * (ABNORMAL) POC, GLUCOSE (06/17/2024 12:13 AM EST) [facility] Signature Glucometer, POC 211(H) 65 - 199 mg/dL 06/17/2024 12:13 AM EST [facility] Comment:Supplemental ranges: <140 mg/dL before meals <180 mg/dL all other times of the day. Blood CAPILLARY BLOOD / Unknown 06/17/2024 12:13 AM EST 06/17/2024 12:14 AM EST Bobby Loja MD POINT OF CARE TEST O NIKA Performing Organization Address [facility] Co de Phone Number [facility] [place] [address] * (ABNORMAL) POC, GLUCOSE (06/16/2024 7:22 PM EST) Glucometer, POC 229(H) 65 - 199 mg/dL 06/16/2024 7:22 PM EST [facility] Comment:Supplemental ranges: <140 mg/dL before meals <180 mg/dL all other times of the day. Blood CAPILLARY BLOOD / Unknown 06/16/2024 7:22 PM EST 06/16/2024 7:22 PM EST Bobby Loja MD POINT OF CARE TEST O NIKA Performing Organization Address [facility] de Phone Number [facility] [place] [address] * (ABNORMAL) POC, GLUCOSE (06/16/2024 6:14 PM EST) Glucometer, POC 220(H) 65 - 199 mg/dL 06/16/2024 6:14 PM EST [facility] Comment:Supplemental ranges: <140 mg/dL before meals <180 mg/dL all other times of the day. Blood CAPILLARY BLOOD / Unknown 06/16/2024 6:14 PM EST 06/16/2024 6:14 PM EST Bobby Loja MD POINT OF CARE TEST O NIKA Performing Organization Address [facility] Co de Phone Number [facility] [place] [address] * Lactate, Whole Blood (06/16/2024 6:14 PM EST) Lactate, Whole Blood 1.8 0.5 - 2.2 mmol/L 06/16/2024 6:27 PM EST [facility] Blood VENOUS BLOOD SPECIMEN / Unknown Venipuncture / Unknown 06/16/2024 6:14 PM EST 06/16/2024 6:25 PM EST Bobby Loja MD CHEMISTRY ORDERABLES Performing Organization Address [facility] Co de Phone Number [facility] [place] [address] * (ABNORMAL) POC, GLUCOSE (06/16/2024 4:14 PM EST) Glucometer, POC 240(H) 65 - 199 mg/dL 06/16/2024 4:14 PM EST [facility] Comment:Supplemental ranges: <140 mg/dL before meals <180 mg/dL all other times of the day. Blood CAPILLARY BLOOD / Unknown 06/16/2024 4:14 PM EST 06/16/2024 4:14 PM EST Bobby Loja MD POINT OF CARE TEST O RDERABLES Performing Organization Address [facility] Co de Phone Number [facility] [place] [address] * POC, GLUCOSE (06/16/2024 11:49 AM EST) Glucometer, POC 199 65 - 199 mg/dL 06/16/2024 11:49 AM EST [facility] Comment:Supplemental ranges: <140 mg/dL before meals <180 mg/dL all other times of the day. Blood CAPILLARY BLOOD / Unknown 06/16/2024 11:49 AM EST 06/16/2024 11:49 AM EST Bobby Loja MD POINT OF CARE TEST O NIKA Performing Organization Address [facility] Co de Phone Number [facility] [place] [address] * (ABNORMAL) Hemogram (06/16/2024 11:44 AM EST) White Blood Cell 17.91(H) 4.00 - 9.50 x10(3)/mc L 06/16/2024 12:25 PM EST [facility] Red Blood Cell 3.47(L) 4.58 - 5.54 x10(6)/mc L 06/16/2024 12:25 PM [facility] Hemoglobin 10.5(L) 13.7 - 16.5 g/dL 06/16/2024 12:25 PM [facility] Hematocrit 33.1(L) 40.5 - 48.5 % 06/16/2024 12:25 PM [facility] Mean Cell Volume 95.4(H) 82.9 - 93.1 fL 06/16/2024 12:25 PM [facility] Mean Cell Hemoglobin 30.3 27.5 - 32.1 pg 06/16/2024 12:25 PM [facility] Mean Cell Hemoglobin Concentration 31.7(L) 32.0 - 35.7 g/dL 06/16/2024 12:25 PM [facility] Platelet 101(L) 145 - 357 x10(3)/mc L 06/16/2024 12:25 PM [facility] Mean Platelet Volume 10.6 7.6 - 12.9 fL 06/16/2024 12:25 PM [facility] RDW Standard Deviation 49.5(H) 36.0 - 45.0 fL 06/16/2024 12:25 PM [facility] RDW coefficient of variation 14.2(H) 11.4 - 13.8 % 06/16/2024 12:25 PM [facility] NRBC% auto 0.0 % 06/16/2024 12:25 PM [facility] NRBC Absolute <0.01 <0.01 x10(3)/mc L 06/16/2024 12:25 PM [facility] Blood VENOUS BLOOD SPECIMEN / Unknown Venipuncture / Unknown 06/16/2024 11:44 AM EST 06/16/2024 12:03 PM EST Bobby Loja MD HEMATOLOGY ORDERABLE S [facility] [place] [address] * Lactate, Whole Blood (06/16/2024 9:02 AM EST) Lactate, Whole Blood 1.8 0.5 - 2.2 mmol/L 06/16/2024 9:19 AM EST [facility] Blood VENOUS BLOOD SPECIMEN / Unknown Venipuncture / Unknown 06/16/2024 9:02 AM EST 06/16/2024 9:17 AM EST Narrative Authorizing Provider Result Saranya Loja MD CHEMISTRY ORDERABLES Performing Organization Address [facility] Co de Phone Number [facility] [place] [address] * POC, GLUCOSE (06/16/2024 7:44 AM EST) Glucometer, POC 129 65 - 199 mg/dL 06/16/2024 7:44 AM EST [facility] Comment:Supplemental ranges: <140 mg/dL before meals <180 mg/dL all other times of the day. Blood CAPILLARY BLOOD / Unknown 06/16/2024 7:44 AM EST 06/16/2024 7:44 AM EST Narrative Authorizing Provider Result Saranya Loja MD POINT OF CARE TEST O RDERABLES Performing Organization Address [facility] Co de Phone Number [facility] [place] [address] * POC, GLUCOSE (06/16/2024 4:01 AM EST) Glucometer, POC 158 65 - 199 mg/dL 06/16/2024 4:01 AM EST [facility] Comment:Supplemental ranges: <140 mg/dL before meals <180 mg/dL all other times of the day. Blood CAPILLARY BLOOD / Unknown 06/16/2024 4:01 AM EST 06/16/2024 4:01 AM EST Narrative Authorizing Provider Result Saranya Loja MD POINT OF CARE TEST O RDERABLES [facility] [place] [address] * (ABNORMAL) Basic Metabolic Panel (06/16/2024 2:23 AM EST) Glucose 177 65 - 199 mg/dL 06/16/2024 3:13 AM [facility] Comment:Glucose Concentratio n >=200 mg/dL plus symptoms is consistent with Diabetes Mellitus. Blood Urea Nitrogen 37(H) 10 - 20 mg/dL 06/16/2024 3:13 AM [facility] Creatinine 2.10(H) 0.80 - 1.50 mg/dL 06/16/2024 3:13 AM [facility] Sodium 132(L) 135 - 145 mMol/L 06/16/2024 3:13 AM [facility] Potassium 4.5 3.5 - 5.0 mMol/L 06/16/2024 3:13 AM [facility] Chloride 99 98 - 107 mMol/L 06/16/2024 3:13 AM [facility] Carbon Dioxide 22 22 - 31 mMol/L 06/16/2024 3:13 AM [facility] Anion Gap 11 5 - 15 mMol/L 06/16/2024 3:13 AM [facility] Calcium 9.0 8.5 - 10.5 mg/dL 06/16/2024 3:13 AM [facility] Est Glomerular Filtration Rate - Male 34 mL/min/1. 73 m?? 06/16/2024 3:13 AM [facility] Comment: This patient's estimated GFR [...] Loja MD CHEMISTRY ORDERABLES Performing Organization Address City/[facility]/ZIP Co de Phone Number [facility] [place] [address] * POC, GLUCOSE (06/16/2024 2:21 AM EST) Glucometer, POC 176 65 - 199 mg/dL 06/16/2024 2:31 AM EST [facility] Comment:Supplemental ranges: <140 mg/dL before meals <180 mg/dL all other times of the day. Blood CAPILLARY BLOOD / Unknown 06/16/2024 2:21 AM EST 06/16/2024 2:31 AM EST Narrative Authorizing Provider Result Saranya Loja MD POINT OF CARE TEST O RDERABLES Performing Organization Address [facility] Co de Phone Number [facility] [place] [address] * (ABNORMAL) POC, GLUCOSE (06/16/2024 12:09 AM EST) Glucometer, POC 222(H) 65 - 199 mg/dL 06/16/2024 12:09 AM EST [facility] Comment:Supplemental ranges: <140 mg/dL before meals <180 mg/dL all other times of the day. Blood CAPILLARY BLOOD / Unknown 06/16/2024 12:09 AM EST 06/16/2024 12:09 AM EST Narrative Authorizing Provider Result Saranya Loja MD POINT OF CARE TEST O RDERABLES Performing Organization Address City/[facility]/ZIP Co de Phone Number [facility] [place] [address] * (ABNORMAL) POC, GLUCOSE (06/15/2024 10:07 PM EST) Glucometer, POC 320(H) 65 - 199 mg/dL 06/15/2024 10:07 PM EST [facility] Comment:Supplemental ranges: <140 mg/dL before meals <180 mg/dL all other times of the day. Blood CAPILLARY BLOOD / Unknown 06/15/2024 10:07 PM EST 06/15/2024 10:07 PM EST Bobby Loja MD POINT OF CARE TEST O NIKA Performing Organization Address [facility] de Phone Number [facility] [place] [address] * (ABNORMAL) POC, GLUCOSE (06/15/2024 7:56 PM EST) Glucometer, POC 304(H) 65 - 199 mg/dL 06/15/2024 7:56 PM EST [facility] Comment:Supplemental ranges: <140 mg/dL before meals <180 mg/dL all other times of the day. Blood CAPILLARY BLOOD / Unknown 06/15/2024 7:56 PM EST 06/15/2024 7:56 PM EST Bobby Loja MD POINT OF CARE TEST Abimael MAHER Performing Organization Address [facility] de Phone Number [facility] [place] [address] * (ABNORMAL) POC, GLUCOSE (06/15/2024 7:52 PM EST) Glucometer, POC 288(H) 65 - 199 mg/dL 06/15/2024 7:52 PM EST [facility] Comment:Supplemental ranges: <140 mg/dL before meals <180 mg/dL all other times of the day. Blood CAPILLARY BLOOD / Unknown 06/15/2024 7:52 PM EST 06/15/2024 7:52 PM EST Narrative Authorizing Provider Result Saranya Loja MD POINT OF CARE TEST O NIKA Performing Organization Address City/[facility] Co de Phone Number [facility] [place] [address] * POC, GLUCOSE (06/15/2024 4:21 PM EST) Glucometer, POC 192 65 - 199 mg/dL 06/15/2024 4:21 PM EST [facility] Comment:Supplemental ranges: <140 mg/dL before meals <180 mg/dL all other times of the day. Blood CAPILLARY BLOOD / Unknown 06/15/2024 4:21 PM EST 06/15/2024 4:21 PM EST Bobby Loja MD POINT OF CARE TEST O NIKA Performing Organization Address [facility] de Phone Number [facility] [place] [address] * POC, GLUCOSE (06/15/2024 3:27 PM EST) Glucometer, POC 155 65 - 199 mg/dL 06/15/2024 3:27 PM EST [facility] Comment:Supplemental ranges: <140 mg/dL before meals <180 mg/dL all other times of the day. Blood CAPILLARY BLOOD / Unknown 06/15/2024 3:27 PM EST 06/15/2024 3:27 PM EST Bobby Loja MD POINT OF CARE TEST O NIKA Performing Organization Address [facility] Co de Phone Number [facility] [place] [address] * POC, GLUCOSE (06/15/2024 2:23 PM EST) Glucometer, POC 160 65 - 199 mg/dL 06/15/2024 2:23 PM EST [facility] Comment:Supplemental ranges: <140 mg/dL before meals <180 mg/dL all other times of the day. Blood CAPILLARY BLOOD / Unknown 06/15/2024 2:23 PM EST 06/15/2024 2:23 PM EST Bobby Loja MD POINT OF CARE TEST O RDERABLES Performing Organization Address [facility] Co de Phone Number [facility] [place] [address] * POC, GLUCOSE (06/15/2024 1:26 PM EST) Glucometer, POC 167 65 - 199 mg/dL 06/15/2024 1:26 PM EST [facility] Comment:Supplemental ranges: <140 mg/dL before meals <180 mg/dL all other times of the day. Blood CAPILLARY BLOOD / Unknown 06/15/2024 1:26 PM EST 06/15/2024 1:26 PM EST Bobby Loja MD POINT OF CARE TEST O NIKA Performing Organization Address [facility] Co de Phone Number [facility] [place] [address] * (ABNORMAL) POC, GLUCOSE (06/15/2024 12:55 PM EST) Glucometer, POC 210(H) 65 - 199 mg/dL 06/15/2024 12:55 PM EST [facility] Comment:Supplemental ranges: <140 mg/dL before meals <180 mg/dL all other times of the day. Blood CAPILLARY BLOOD / Unknown 06/15/2024 12:55 PM EST 06/15/2024 12:55 PM EST Bobby Loja MD POINT OF CARE TEST O NIKA Performing Organization Address [facility] Co de Phone Number [facility] [place] [address] * (ABNORMAL) POC, GLUCOSE (06/15/2024 11:29 AM EST) Glucometer, POC 220(H) 65 - 199 mg/dL 06/15/2024 11:29 AM EST [facility] Comment:Supplemental ranges: <140 mg/dL before meals <180 mg/dL all other times of the day. Blood CAPILLARY BLOOD / Unknown 06/15/2024 11:29 AM EST 06/15/2024 11:29 AM EST Bobby Loja MD POINT OF CARE TEST O RDERABLES [facility] [place] [address] * (ABNORMAL) Basic Metabolic Panel (06/15/2024 11:23 AM EST) Glucose 215(H) 65 - 199 mg/dL 06/15/2024 12:08 PM [facility] Comment:Glucose Concentratio n >=200 mg/dL plus symptoms is consistent with Diabetes Mellitus. Blood Urea Nitrogen 24(H) 10 - 20 mg/dL 06/15/2024 12:08 PM [facility] Creatinine 1.54(H) 0.80 - 1.50 mg/dL 06/15/2024 12:08 PM [facility] Sodium 135 135 - 145 mMol/L 06/15/2024 12:08 PM [facility] Potassium 4.5 3.5 - 5.0 mMol/L 06/15/2024 12:08 PM [facility] Chloride 105 98 - 107 mMol/L 06/15/2024 12:08 PM [facility] Carbon Dioxide 19(L) 22 - 31 mMol/L 06/15/2024 12:08 PM [facility] Anion Gap 11 5 - 15 mMol/L 06/15/2024 12:08 PM [facility] Calcium 8.3(L) 8.5 - 10.5 mg/dL 06/15/2024 12:08 PM [facility] Est Glomerular Filtration Rate - Male 49 mL/min/1. 73 m?? 06/15/2024 12:08 PM [facility] Comment: This patient's estimated GFR [...] Loja MD CHEMISTRY ORDERABLES Performing Organization Address [facility] Co de Phone Number [facility] [place] [address] * POC, GLUCOSE (06/15/2024 10:29 AM EST) Glucometer, POC 189 65 - 199 mg/dL 06/15/2024 10:29 AM EST [facility] Comment:Supplemental ranges: <140 mg/dL before meals <180 mg/dL all other times of the day. Blood CAPILLARY BLOOD / Unknown 06/15/2024 10:29 AM EST 06/15/2024 10:29 AM EST Narrative Authorizing Provider Result Saranya Loja MD POINT OF CARE TEST O RDERABLES Performing Organization Address City/[facility] Co de Phone Number [facility] [place] [address] * POC, GLUCOSE (06/15/2024 9:45 AM EST) Glucometer, POC 178 65 - 199 mg/dL 06/15/2024 9:45 AM EST [facility] Comment:Supplemental ranges: <140 mg/dL before meals <180 mg/dL all other times of the day. Blood CAPILLARY BLOOD / Unknown 06/15/2024 9:45 AM EST 06/15/2024 9:45 AM EST Narrative Authorizing Provider Result Saranya Loja MD POINT OF CARE TEST O RDERABLES Performing Organization Address City/[facility]/ZIP Co de Phone Number [facility] [place] [address] * (ABNORMAL) Cooximetry, POC (06/15/2024 9:31 AM EST) pO2, Coox 38 mmHg 06/15/2024 9:34 AM [facility] Hemoglobin, Coox 12.9(L) 13.7 - 16.5 g/dL 06/15/2024 9:34 AM [facility] Oxyhemoglobin, Coox 72.1 % 06/15/2024 9:34 AM [facility] Carboxyhemoglo bin, Coox 0.9 % 06/15/2024 9:34 AM [facility] Comment: Nonsmokers: 0.5-1.5% COHB ?? Smokers: Variable ??but usually less than 10% ?? Toxic: 20-30% COHB ?? Lethal: Greater than 60% COHB Methemoglobin, Coox 0.3 <=1.5 % 06/15/2024 9:34 AM [facility] Blood (Mixed Venous) 06/15/2024 9:31 AM EST 06/15/2024 9:34 AM EST Bobby Loja MD POINT OF CARE TEST O RDERAPIETER Performing Organization Address [facility]/ZIP Co de Phone Number [facility] [place] [address] * Cooximetry, POC (06/15/2024 9:22 AM EST) pO2, Coox 30 mmHg 06/15/2024 9:25 AM EST [facility] Hemoglobin, Coox 06/15/2024 9:25 AM EST [facility] Comment:QUES Oxyhemoglobin, Coox 06/15/2024 9:25 AM [facility] Comment:QUES Carboxyhemoglo bin, Coox 06/15/2024 9:25 AM [facility] Comment:QUES Methemoglobin, Coox 06/15/2024 9:25 AM [facility] Comment:QUES Blood (Mixed Venous) 06/15/2024 9:22 AM EST 06/15/2024 9:25 AM EST Bobby Loja MD POINT OF CARE TEST O NIKA [facility] [place] [address] * (ABNORMAL) Blood Gas, Arterial POC (06/15/2024 9:19 AM EST) pH, Arterial 7.31(L) 7.35 - 7.45 06/15/2024 9:21 AM [facility] PCO2, Arterial 36 35 - 45 mmHg 06/15/2024 9:21 AM [facility] PO2, Arterial 94 85 - 104 mmHg 06/15/2024 9:21 AM [facility] Bicarbonate, Arterial 18.0(L) 20.0 - 26.0 mmol/L 06/15/2024 9:21 AM [facility] Base Excess, Arterial -8.2(L) -3.0 - 3.0 mmol/L 06/15/2024 9:21 AM [facility] Hemoglobin, Arterial 12.7(L) 13.7 - 16.5 g/dL 06/15/2024 9:21 AM [facility] Oxyhemoglobin, Arterial 96.0 94.0 - 97.0 % 06/15/2024 9:21 AM [facility] Carboxyhemoglobin , Arterial 0.5 % 06/15/2024 9:21 AM [facility] Comment: Nonsmokers: 0.5-1.5% COHB ?? Smokers: Variable ??but usually less than 10% ?? Toxic: 20-30% COHB ?? Lethal: Greater than 60% COHB Methemoglobin, Arterial 0.3 <=1.5 % 06/15/2024 9:21 AM [facility] Sodium, Arterial 136 135 - 145 mmol/L 06/15/2024 9:21 AM [facility] Potassium, Arterial 4.0 3.5 - 5.0 mmol/L 06/15/2024 9:21 AM [facility] Chloride, Arterial 106 98 - 107 mmol/L 06/15/2024 9:21 AM [facility] Lactate, Arterial 1.7 0.5 - 2.2 mmol/L 06/15/2024 9:21 AM [facility] Flow Rate 2.0 L/min 06/15/2024 9:21 AM [facility] IONIZED CALCIUM, ARTERIAL 1.14(L) 1.15 - 1.33 mmol/L 06/15/2024 9:21 AM [facility] Glucose, Arterial 193 65 - 199 mg/dL 06/15/2024 9:21 AM [facility] Comment:Glucose Concentratio n >=200 mg/dL plus symptoms is consistent with Diabetes Mellitus. Blood ARTERIAL BLOOD / Unknown 06/15/2024 9:19 AM EST 06/15/2024 9:20 AM EST Narrative Authorizing Provider Result Saranya Loja MD POINT OF CARE TEST O NIKA [facility] [place] [address] * (ABNORMAL) POC, GLUCOSE (06/15/2024 8:37 AM EST) [facility] Signature Glucometer, POC 204(H) 65 - 199 mg/dL 06/15/2024 8:37 AM [facility] Comment:Supplemental ranges: <140 mg/dL before meals <180 mg/dL all other times of the day. Blood CAPILLARY BLOOD / Unknown 06/15/2024 8:37 AM EST 06/15/2024 8:37 AM EST Narrative Authorizing Provider Result Saranya Loja MD POINT OF CARE TEST O RDBECKIE Performing Organization Address [facility] de Phone Number [facility] [place] [address] * POC, GLUCOSE (06/15/2024 7:37 AM EST) Glucometer, POC 199 65 - 199 mg/dL 06/15/2024 7:37 AM EST [facility] Comment:Supplemental ranges: <140 mg/dL before meals <180 mg/dL all other times of the day. Blood CAPILLARY BLOOD / Unknown 06/15/2024 7:37 AM EST 06/15/2024 7:38 AM EST Bobby Loja MD POINT OF CARE TEST O NIKA Performing Organization Address [facility] de Phone Number [facility] [place] [address] * (ABNORMAL) POC, GLUCOSE (06/15/2024 7:01 AM EST) Glucometer, POC 203(H) 65 - 199 mg/dL 06/15/2024 7:01 AM EST [facility] Comment:Supplemental ranges: <140 mg/dL before meals <180 mg/dL all other times of the day. Blood CAPILLARY BLOOD / Unknown 06/15/2024 7:01 AM EST 06/15/2024 7:01 AM EST Bobby Loja MD POINT OF CARE TEST O NIKA Performing Organization Address [facility] Co de Phone Number [facility] [place] [address] * XR Chest One View (06/15/2024 6:31 AM EST) WORKSTATION ID [id number] RAD Anatomical Region Laterality Modality Chest N/A [...] have questions please contact the health healthcare account manager that requested your imaging first. ? Electronically signed by: Stuart Aponte MD, [facility] ??([phone]), at 06/15/2024 10:38 AM Narrative 06/15/2024 10:38 [...] who have questions please contactthe health healthcare account manager that requested your imaging first. Electronically signed by: Stuart Aponte MD, [facility]([phone]), at 06/15/2024 10:38 AM Authorizing Provider Result Saranya Loja MD IMG DX ORDERABLES * POC, GLUCOSE (06/15/2024 6:02 AM EST) Glucometer, POC 179 65 - 199 mg/dL 06/15/2024 6:02 AM EST [facility] Comment:Supplemental ranges: <140 mg/dL before meals <180 mg/dL all other times of the day. Blood CAPILLARY BLOOD / Unknown 06/15/2024 6:02 AM EST 06/15/2024 6:02 AM EST Bobby Loja MD POINT OF CARE TEST O NIKA Performing Organization Address [facility]/ZIP Co de Phone Number [facility] [place] [address] * POC, GLUCOSE (06/15/2024 5:06 AM EST) Glucometer, POC 160 65 - 199 mg/dL 06/15/2024 5:06 AM EST [facility] Comment:Supplemental ranges: <140 mg/dL before meals <180 mg/dL all other times of the day. Blood CAPILLARY BLOOD / Unknown 06/15/2024 5:06 AM EST 06/15/2024 5:06 AM EST Narrative Authorizing Provider Result Saranya Loja MD POINT OF CARE TEST O NIKA [facility] [place] [address] * POC, GLUCOSE (06/15/2024 4:05 AM EST) Glucometer, POC 160 65 - 199 mg/dL 06/15/2024 4:06 AM EST [facility] Comment:Supplemental ranges: <140 mg/dL before meals <180 mg/dL all other times of the day. Blood CAPILLARY BLOOD / Unknown 06/15/2024 4:05 AM EST 06/15/2024 4:06 AM EST Bobby Loja MD POINT OF CARE TEST Abimael MAHER Performing Organization Address [facility] Co de Phone Number [facility] [place] [address] * POC, GLUCOSE (06/15/2024 3:07 AM EST) Glucometer, POC 151 65 - 199 mg/dL 06/15/2024 3:07 AM EST [facility] Comment:Supplemental ranges: <140 mg/dL before meals <180 mg/dL all other times of the day. Blood CAPILLARY BLOOD / Unknown 06/15/2024 3:07 AM EST 06/15/2024 3:07 AM EST Bobby Loja MD POINT OF CARE TEST Abimael MAHER Performing Organization Address [facility] Co de Phone Number [facility] [place] [address] * (ABNORMAL) Basic Metabolic Panel (06/15/2024 1:48 AM EST) Glucose 140 65 - 199 mg/dL 06/15/2024 2:38 AM [facility] Comment:Glucose Concentratio n >=200 mg/dL plus symptoms is consistent with Diabetes Mellitus. Blood Urea Nitrogen 21(H) 10 - 20 mg/dL 06/15/2024 2:38 AM [facility] Creatinine 1.27 0.80 - 1.50 mg/dL 06/15/2024 2:38 AM [facility] Sodium 140 135 - 145 mMol/L 06/15/2024 2:38 AM [facility] Potassium 4.4 3.5 - 5.0 mMol/L 06/15/2024 2:38 AM [facility] Chloride 108(H) 98 - 107 mMol/L 06/15/2024 2:38 AM [facility] Carbon Dioxide 23 22 - 31 mMol/L 06/15/2024 2:38 AM EST [facility] Anion Gap 9 5 - 15 mMol/L 06/15/2024 2:38 AM EST [facility] Calcium 8.3(L) 8.5 - 10.5 mg/dL 06/15/2024 2:38 AM EST [facility] Est Glomerular Filtration Rate - Male 62 mL/min/1. 73 m?? 06/15/2024 2:38 AM EST [facility] Comment: This patient's estimated GFR [...] AM EST Bobby Loja MD CHEMISTRY ORDERABLES [facility] [place] [address] * (ABNORMAL) CBC (with Diff) (06/15/2024 1:48 AM EST) White Blood Cell 11.71(H) 4.00 - 9.50 x10(3)/mc L 06/15/2024 2:13 AM EST [facility] Red Blood Cell 4.14(L) 4.58 - 5.54 x10(6)/mc L 06/15/2024 2:13 AM EST [facility] Hemoglobin 12.5(L) 13.7 - 16.5 g/dL 06/15/2024 2:13 AM EST [facility] Hematocrit 38.4(L) 40.5 - 48.5 % 06/15/2024 2:13 AM [facility] Mean Cell Volume 92.8 82.9 - 93.1 fL 06/15/2024 2:13 AM [facility] Mean Cell Hemoglobin 30.2 27.5 - 32.1 pg 06/15/2024 2:13 AM [facility] Mean Cell Hemoglobin Concentration 32.6 32.0 - 35.7 g/dL 06/15/2024 2:13 AM [facility] Platelet 101(L) 145 - 357 x10(3)/mc L 06/15/2024 2:13 AM [facility] Mean Platelet Volume 10.0 7.6 - 12.9 fL 06/15/2024 2:13 AM [facility] RDW Standard Deviation 48.8(H) 36.0 - 45.0 fL 06/15/2024 2:13 AM [facility] RDW coefficient of variation 14.2(H) 11.4 - 13.8 % 06/15/2024 2:13 AM [facility] NRBC% auto 0.0 % 06/15/2024 2:13 AM [facility] NRBC Absolute <0.01 <0.01 x10(3)/mc L 06/15/2024 2:13 AM [facility] Neutrophil % 79.7 % 06/15/2024 2:13 AM [facility] Neutrophil Absolute (ANC) - Automated 9.34(H) 1.70 - 6.10 x10(3)/mc L 06/15/2024 2:13 AM [facility] Lymph % 8.0 % 06/15/2024 2:13 AM [facility] Lymph Absolute 0.94 0.90 - 3.20 x10(3)/mc L 06/15/2024 2:13 AM [facility] Monocyte % 11.4 % 06/15/2024 2:13 AM [facility] Monocyte Absolute 1.33(H) 0.30 - 0.90 x10(3)/mc L 06/15/2024 2:13 AM EST [facility] Eos % 0.2 % 06/15/2024 2:13 AM [facility] Eos Absolute <0.04 0.00 - 0.40 x10(3)/mc L 06/15/2024 2:13 AM EST [facility] Basophil % 0.2 % 06/15/2024 2:13 AM EST [facility] Baso Absolute <0.04 0.00 - 0.10 x10(3)/mc L 06/15/2024 2:13 AM [facility] Immature Gran % 0.5 % 2:13 AM [facility] Immature Gran Absolute 0.06(H) 0.00 - 0.04 x10(3)/mc L 06/15/2024 2:13 AM [facility] Blood VENOUS BLOOD SPECIMEN / Unknown Venipuncture / Unknown 06/15/2024 1:48 AM EST 06/15/2024 1:52 AM EST Bobby Loja MD HEMATOLOGY ORDERABLE S [facility] [place] [address] * (ABNORMAL) Troponin - Single (06/15/2024 1:48 AM EST) Troponin-T, High Sensitivity 667(H) <=22 ng/L 06/15/2024 2:22 AM EST [facility] Comment: This patient's troponin T [...] troponin value can be found in the [facility] Test Catalog Troponin - https://[email or web address].org/catalogs/565/[email or web address] Reference: Fourth [place] Definition of Myocardial Infarction. Journal of the [place] [employer] 2018;72:6851-1131 Blood VENOUS BLOOD SPECIMEN / Unknown Venipuncture / Unknown 06/15/2024 1:48 AM EST 06/15/2024 1:52 AM EST Bobby Loja MD CHEMISTRY ORDERABLES [facility] [place] [address] * (ABNORMAL) Blood Gas, Arterial POC (06/15/2024 1:46 AM EST) pH, Arterial 7.33(L) 7.35 - 7.45 06/15/2024 1:47 AM EST [facility] PCO2, Arterial 40 35 - 45 mmHg 06/15/2024 1:47 AM EST [facility] PO2, Arterial 131(H) 85 - 104 mmHg 06/15/2024 1:47 AM EST [facility] Bicarbonate, Arterial 20.7 20.0 - 26.0 mmol/L 06/15/2024 1:47 AM EST [facility] Base Excess, Arterial -5.2(L) -3.0 - 3.0 mmol/L 06/15/2024 1:47 AM EST [facility] Hemoglobin, Arterial 13.4(L) 13.7 - 16.5 g/dL 06/15/2024 1:47 AM EST [facility] Oxyhemoglobin, Arterial 97.9(H) 94.0 - 97.0 % 06/15/2024 1:47 AM [facility] Carboxyhemoglobin , Arterial 0.5 % 06/15/2024 1:47 AM [facility] Comment: Nonsmokers: 0.5-1.5% COHB ?? Smokers: Variable ??but usually less than 10% ?? Toxic: 20-30% COHB ?? Lethal: Greater than 60% COHB Methemoglobin, Arterial 0.3 <=1.5 % 06/15/2024 1:47 AM [facility] Sodium, Arterial 139 135 - 145 mmol/L 06/15/2024 1:47 AM [facility] Potassium, Arterial 4.2 3.5 - 5.0 mmol/L 06/15/2024 1:47 AM [facility] Chloride, Arterial 107 98 - 107 mmol/L 06/15/2024 1:47 AM [facility] Lactate, Arterial 1.8 0.5 - 2.2 mmol/L 06/15/2024 1:47 AM [facility] Fraction of Inspired Oxygen 40 % 06/15/2024 1:47 AM [facility] PF Ratio 328 Ratio 06/15/2024 1:47 AM [facility] Comment:PF ratio calculated using the non-temperature corrected pO2 result. IONIZED CALCIUM, ARTERIAL 1.17 1.15 - 1.33 mmol/L 06/15/2024 1:47 AM [facility] Glucose, Arterial 127 65 - 199 mg/dL 06/15/2024 1:47 AM [facility] Comment:Glucose Concentratio n >=200 mg/dL plus symptoms is consistent with Diabetes Mellitus. Blood ARTERIAL BLOOD / Unknown 06/15/2024 1:46 AM EST 06/15/2024 1:47 AM EST Bobby Loja MD POINT OF CARE TEST O NIKA [facility] [place] [address] * POC, GLUCOSE (06/15/2024 1:05 AM EST) Glucometer, POC 116 65 - 199 mg/dL 06/15/2024 1:05 AM EST [facility] Comment:Supplemental ranges: <140 mg/dL before meals <180 mg/dL all other times of the day. Blood CAPILLARY BLOOD / Unknown 06/15/2024 1:05 AM EST 06/15/2024 1:05 AM EST Bobby Loja MD POINT OF CARE TEST O RDERABLES Performing Organization Address [facility] Co de Phone Number [facility] [place] [address] * POC, GLUCOSE (06/15/2024 12:16 AM EST) Glucometer, POC 135 65 - 199 mg/dL 06/15/2024 12:16 AM EST [facility] Comment:Supplemental ranges: <140 mg/dL before meals <180 mg/dL all other times of the day. Blood CAPILLARY BLOOD / Unknown 06/15/2024 12:16 AM EST 06/15/2024 12:16 AM EST Bobby Loja MD POINT OF CARE TEST O RDERABLES Performing Organization Address [facility] Co de Phone Number [facility] [place] [address] * Potassium (06/14/2024 11:28 PM EST) Potassium 4.1 3.5 - 5.0 mMol/L 06/14/2024 11:54 PM EST [facility] Blood VENOUS BLOOD SPECIMEN / Unknown Venipuncture / Unknown 06/14/2024 11:28 PM EST 06/14/2024 11:34 PM EST Bobby Loja MD CHEMISTRY ORDERABLES Performing Organization Address City/[facility]/ZIP Co de Phone Number [facility] [place] [address] * POC, GLUCOSE (06/14/2024 10:58 PM EST) Glucometer, POC 126 65 - 199 mg/dL 06/14/2024 10:59 PM EST [facility] Comment:Supplemental ranges: <140 mg/dL before meals <180 mg/dL all other times of the day. Blood CAPILLARY BLOOD / Unknown 06/14/2024 10:58 PM EST 06/14/2024 10:59 PM EST Bobby Loja MD POINT OF CARE TEST O NIKA Performing Organization Address [facility]/ZIP Co de Phone Number [facility] [place] [address] * POC, GLUCOSE (06/14/2024 9:55 PM EST) Glucometer, POC 152 65 - 199 mg/dL 06/14/2024 9:56 PM EST [facility] Comment:Supplemental ranges: <140 mg/dL before meals <180 mg/dL all other times of the day. Blood CAPILLARY BLOOD / Unknown 06/14/2024 9:55 PM EST 06/14/2024 9:56 PM EST Bobby Loja MD POINT OF CARE TEST O NIKA Performing Organization Address [facility]/ZIP Co de Phone Number [facility] [place] [address] * POC, GLUCOSE (06/14/2024 8:54 PM EST) Glucometer, POC 151 65 - 199 mg/dL 06/14/2024 8:54 PM EST [facility] Comment:Supplemental ranges: <140 mg/dL before meals <180 mg/dL all other times of the day. Blood CAPILLARY BLOOD / Unknown 06/14/2024 8:54 PM EST 06/14/2024 8:54 PM EST Bobby Loja MD POINT OF CARE TEST O NIKA Performing Organization Address [facility] Co de Phone Number [facility] [place] [address] * POC, GLUCOSE (06/14/2024 7:51 PM EST) Glucometer, POC 169 65 - 199 mg/dL 06/14/2024 7:52 PM EST [facility] Comment:Supplemental ranges: <140 mg/dL before meals <180 mg/dL all other times of the day. Blood CAPILLARY BLOOD / Unknown 06/14/2024 7:51 PM EST 06/14/2024 7:52 PM EST Bobby Loja MD POINT OF CARE TEST Abimael MAHER Performing Organization Address [facility] Co de Phone Number [facility] [place] [address] * POC, GLUCOSE (06/14/2024 6:49 PM EST) Glucometer, POC 194 65 - 199 mg/dL 06/14/2024 6:50 PM EST [facility] Comment:Supplemental ranges: <140 mg/dL before meals <180 mg/dL all other times of the day. Blood CAPILLARY BLOOD / Unknown 06/14/2024 6:49 PM EST 06/14/2024 6:50 PM EST Bobby Loja MD POINT OF CARE TEST Abimael MAHER Performing Organization Address [facility] Co de Phone Number [facility] [place] [address] * (ABNORMAL) Hemoglobin (06/14/2024 6:19 PM EST) Hemoglobin 13.1(L) 13.7 - 16.5 g/dL 06/14/2024 7:08 PM EST [facility] Blood VENOUS BLOOD SPECIMEN / Unknown Venipuncture / Unknown 06/14/2024 6:19 PM EST 06/14/2024 6:28 PM EST Bobby Loja MD HEMATOLOGY ORDERABLE S Performing Organization Address [facility]/ZIP Co de Phone Number [facility] [place] [address] * Potassium (06/14/2024 6:19 PM EST) Potassium 3.9 3.5 - 5.0 mMol/L 06/14/2024 6:52 PM EST [facility] Blood VENOUS BLOOD SPECIMEN / Unknown Venipuncture / Unknown 06/14/2024 6:19 PM EST 06/14/2024 6:28 PM EST Bobby Loja MD CHEMISTRY ORDERABLES Performing Organization Address [facility] Co de Phone Number [facility] [place] [address] * (ABNORMAL) POC, GLUCOSE (06/14/2024 6:03 PM EST) [facility] Glucometer, POC 201(H) 65 - 199 mg/dL 06/14/2024 6:03 PM EST [facility] Comment:Supplemental ranges: <140 mg/dL before meals <180 mg/dL all other times of the day. Blood CAPILLARY BLOOD / Unknown 06/14/2024 6:03 PM EST 06/14/2024 6:03 PM EST Bobby Loja MD POINT OF CARE TEST O RDERABLES Performing Organization Address [facility]/ZIP Co de Phone Number [facility] [place] [address] * (ABNORMAL) Blood Gas, Arterial POC (06/14/2024 4:51 PM EST) pH, Arterial 7.32(L) 7.35 - 7.45 06/14/2024 4:52 PM EST [facility] PCO2, Arterial 46(H) 35 - 45 mmHg 06/14/2024 4:52 PM EST [facility] PO2, Arterial 85 85 - 104 mmHg 06/14/2024 4:52 PM [facility] Bicarbonate, Arterial 23.1 20.0 - 26.0 mmol/L 06/14/2024 4:52 PM [facility] Base Excess, Arterial -3.1(L) -3.0 - 3.0 mmol/L 06/14/2024 4:52 PM [facility] Hemoglobin, Arterial 14.3 13.7 - 16.5 g/dL 06/14/2024 4:52 PM [facility] Oxyhemoglobin, Arterial 94.7 94.0 - 97.0 % 06/14/2024 4:52 PM [facility] Carboxyhemoglobin , Arterial 0.6 % 06/14/2024 4:52 PM [facility] Comment: Nonsmokers: 0.5-1.5% COHB ?? Smokers: Variable ??but usually less than 10% ?? Toxic: 20-30% COHB ?? Lethal: Greater than 60% COHB Methemoglobin, Arterial 0.0 <=1.5 % 06/14/2024 4:52 PM [facility] Sodium, Arterial 138 135 - 145 mmol/L 06/14/2024 4:52 PM [facility] Potassium, Arterial 4.1 3.5 - 5.0 mmol/L 06/14/2024 4:52 PM [facility] Chloride, Arterial 106 98 - 107 mmol/L 06/14/2024 4:52 PM [facility] Lactate, Arterial 1.3 0.5 - 2.2 mmol/L 06/14/2024 4:52 PM [facility] Fraction of Inspired Oxygen 40 % 06/14/2024 4:52 PM [facility] PF Ratio 213 Ratio 06/14/2024 4:52 PM [facility] Comment:PF ratio calculated using the non-temperature corrected pO2 result. IONIZED CALCIUM, ARTERIAL 1.16 1.15 - 1.33 mmol/L 06/14/2024 4:52 PM [facility] Glucose, Arterial 192 65 - 199 mg/dL 06/14/2024 4:52 PM EST [facility] Comment:Glucose Concentratio n >=200 mg/dL plus symptoms is consistent with Diabetes Mellitus. Blood ARTERIAL BLOOD / Unknown 06/14/2024 4:51 PM EST 06/14/2024 4:52 PM EST Bobby Loja MD POINT OF CARE TEST O NIKA Performing Organization Address [facility] Co de Phone Number [facility] [place] [address] * POC, GLUCOSE (06/14/2024 4:00 PM EST) Glucometer, POC 184 65 - 199 mg/dL 06/14/2024 4:01 PM EST [facility] Comment:Supplemental ranges: <140 mg/dL before meals <180 mg/dL all other times of the day. Blood CAPILLARY BLOOD / Unknown 06/14/2024 4:00 PM EST 06/14/2024 4:01 PM EST Bobby Loja MD POINT OF CARE TEST O NIKA Performing Organization Address [facility] de Phone Number [facility] [place] [address] * XR Chest One View (06/14/2024 3:05 PM EST) WORKSTATION ID [id number] RAD Anatomical Region Laterality Modality Chest N/A [...] have questions please contact the health healthcare account manager that requested your imaging first. ? Electronically signed by: Stuart Aponte MD, [facility] ??([phone]), at 06/14/2024 4:07 PM Narrative 06/14/2024 4:07 [...] who have questions please contactthe health healthcare account manager that requested your imaging first. Electronically signed by: Stuart Aponte MD, [facility]([phone]), at 06/14/2024 4:07 PM Bobby Loja MD IMG DX ORDERABLES * (ABNORMAL) Blood Gas, Arterial POC (06/14/2024 2:52 PM EST) pH, Arterial 7.28(LLL) 7.35 - 7.45 06/14/2024 2:53 PM [facility] PCO2, Arterial 50(H) 35 - 45 mmHg 06/14/2024 2:53 PM [facility] PO2, Arterial 510(H) 85 - 104 mmHg 06/14/2024 2:53 PM [facility] Bicarbonate, Arterial 22.8 20.0 - 26.0 mmol/L 06/14/2024 2:53 PM [facility] Base Excess, Arterial -4.0(L) -3.0 - 3.0 mmol/L 06/14/2024 2:53 PM [facility] Hemoglobin, Arterial 13.8 13.7 - 16.5 g/dL 06/14/2024 2:53 PM [facility] Oxyhemoglobin, Arterial 99.3(H) 94.0 - 97.0 % 06/14/2024 2:53 PM [facility] Carboxyhemoglobin , Arterial 0.6 % 06/14/2024 2:53 PM [facility] Comment: Nonsmokers: 0.5-1.5% COHB ?? Smokers: Variable ??but usually less than 10% ?? Toxic: 20-30% COHB ?? Lethal: Greater than 60% COHB Methemoglobin, Arterial 0.1 <=1.5 % 06/14/2024 2:53 PM EST [facility] Sodium, Arterial 138 135 - 145 mmol/L 06/14/2024 2:53 PM EST [facility] Potassium, Arterial 4.2 3.5 - 5.0 mmol/L 06/14/2024 2:53 PM EST [facility] Chloride, Arterial 106 98 - 107 mmol/L 06/14/2024 2:53 PM [facility] Lactate, Arterial 1.1 0.5 - 2.2 mmol/L 06/14/2024 2:53 PM [facility] Fraction of Inspired Oxygen 100 % 06/14/2024 2:53 PM [facility] PF Ratio 510 Ratio 06/14/2024 2:53 PM [facility] Comment:PF ratio calculated using the non-temperature corrected pO2 result. IONIZED CALCIUM, ARTERIAL 1.15 1.15 - 1.33 mmol/L 06/14/2024 2:53 PM [facility] Glucose, Arterial 169 65 - 199 mg/dL 06/14/2024 2:53 PM [facility] Comment:Glucose Concentratio n >=200 mg/dL plus symptoms is consistent with Diabetes Mellitus. Blood ARTERIAL BLOOD / Unknown 06/14/2024 2:52 PM EST 06/14/2024 2:53 PM EST Bobby Loja MD POINT OF CARE TEST O RDERABLES [facility] [place] [address] * EKG 12 Lead (06/14/2024 2:46 PM EST) Ventricular rate 80 BPM MUSE SYSTEM Atrial Rate 80 BPM MUSE SYSTEM P-R Interval 120 ms MUSE SYSTEM QRS Duration 108 ms MUSE SYSTEM Q-T Interval 454 ms MUSE SYSTEM QTC Calculated (Bezet) 523 ms MUSE SYSTEM Calculated P Crawford 70 degrees MUSE SYSTEM Calculated R Crawford 56 degrees MUSE SYSTEM Calculated T Crawford 50 degrees MUSE SYSTEM INTERPRETATION AV dual-paced rhythm Abnormal ECG When compared with ECG of 03-JUN-2024 01:45, Vent. rate has increased BY ??17 BPM Confirmed by MD Marisol, Shaheen ([id number]) on 06/15/2024 1:57:23 PM MUSE SYSTEM 06/14/2024 2:46 PM EST 06/15/2024 1:57 PM EST Bobby Loja MD ECG ORDERABLES MUSE SYSTEM * Prepare RBC (06/14/2024 2:27 PM EST) Status Information Returned [facility] Product Identification RBC [facility] Unit [facility] [id number] [facility] Product Code [id number] [facility] Unit Blood Type OPOS [facility] Specimen Expiration Date [facility] Volulme 350 [facility] Issue Date / Time [facility] Status Information Returned [facility] Product Identification RBC [facility] Unit Number [id number] [facility] Product Code [id number] [facility] Unit Blood Type OPOS [facility] Specimen Expiration Date [facility] Volulme 350 [facility] Issue Date / Time [facility] Blood 06/14/2024 6:2 5 AM EST Haja Byrnes MD BLOOD BANK PRODUCT O RDERABLES [facility] [place] [address] * (ABNORMAL) Cooximetry, POC (06/14/2024 1:52 PM EST) pO2, Coox 58 mmHg 06/14/2024 1:55 PM EST [facility] Hemoglobin, Coox 12.6(L) 13.7 - 16.5 g/dL 06/14/2024 1:55 PM EST [facility] Oxyhemoglobin, Coox 85.5 % 06/14/2024 1:55 PM [facility] Carboxyhemoglo bin, Coox 0.3 % 06/14/2024 1:55 PM [facility] Comment: Nonsmokers: 0.5-1.5% COHB ?? Smokers: Variable ??but usually less than 10% ?? Toxic: 20-30% COHB ?? Lethal: Greater than 60% COHB Methemoglobin, Coox 0.6 <=1.5 % 06/14/2024 1:55 PM [facility] [facility] Blood (Mixed Venous) 06/14/2024 1:52 PM EST 06/14/2024 1:55 PM EST Haja Byrnes MD POINT OF CARE TEST O RDERABLES Performing Organization Address City/State/[facility] Co de Phone Number [facility] [place] [address] * (ABNORMAL) Blood Gas, Arterial POC (06/14/2024 12:47 PM EST) pH, Arterial 7.33(L) 7.35 - 7.45 06/14/2024 12:48 PM [facility] PCO2, Arterial 46(H) 35 - 45 mmHg 06/14/2024 12:48 PM [facility] PO2, Arterial 358(H) 85 - 104 mmHg 06/14/2024 12:48 PM [facility] Bicarbonate, Arterial 23.8 20.0 - 26.0 mmol/L 06/14/2024 12:48 PM [facility] Base Excess, Arterial -2.1 -3.0 - 3.0 mmol/L 06/14/2024 12:48 PM [facility] Hemoglobin, Arterial 11.7(L) 13.7 - 16.5 g/dL 06/14/2024 12:48 PM [facility] Oxyhemoglobin, Arterial 98.7(H) 94.0 - 97.0 % 06/14/2024 12:48 PM EST [facility] Carboxyhemoglobin , Arterial 0.3 % 06/14/2024 12:48 PM [facility] Comment: Nonsmokers: 0.5-1.5% COHB ?? Smokers: Variable ??but usually less than 10% ?? Toxic: 20-30% COHB ?? Lethal: Greater than 60% COHB Methemoglobin, Arterial 0.5 <=1.5 % 06/14/2024 12:48 PM EST [facility] Sodium, Arterial 135 135 - 145 mmol/L 06/14/2024 12:48 PM [facility] Potassium, Arterial 5.0 3.5 - 5.0 mmol/L 06/14/2024 12:48 PM [facility] Chloride, Arterial 106 98 - 107 mmol/L 06/14/2024 12:48 PM [facility] Lactate, Arterial 1.4 0.5 - 2.2 mmol/L 06/14/2024 12:48 PM [facility] IONIZED CALCIUM, ARTERIAL 1.09(L) 1.15 - 1.33 mmol/L 06/14/2024 12:48 PM [facility] Glucose, Arterial 157 65 - 199 mg/dL 06/14/2024 12:48 PM [facility] Comment:Glucose Concentratio n >=200 mg/dL plus symptoms is consistent with Diabetes Mellitus. Blood ARTERIAL BLOOD / Unknown 06/14/2024 12:47 PM EST 06/14/2024 12:48 PM EST Haja Byrnes MD POINT OF CARE TEST O RDERABLES [facility] [place] [address] * (ABNORMAL) Cooximetry, POC (06/14/2024 12:42 PM EST) pO2, Coox 71 mmHg 06/14/2024 12:45 PM EST [facility] Hemoglobin, Coox 11.6(L) 13.7 - 16.5 g/dL 06/14/2024 12:45 PM EST [facility] Oxyhemoglobin, Coox 91.5 % 06/14/2024 12:45 PM EST [facility] Carboxyhemoglo bin, Coox 0.3 % 06/14/2024 12:45 PM EST [facility] Comment: Nonsmokers: 0.5-1.5% COHB ?? Smokers: Variable ??but usually less than 10% ?? Toxic: 20-30% COHB ?? Lethal: Greater than 60% COHB Methemoglobin, Coox 0.4 <=1.5 % 06/14/2024 12:45 PM EST [facility] Blood (Mixed Venous) 06/14/2024 12:42 PM EST 06/14/2024 12:45 PM EST Haja Byrnes MD POINT OF CARE TEST O RDERABLES [facility] [place] [address] * (ABNORMAL) Platelet count (06/14/2024 12:30 PM EST) Platelet 73(L) 145 - 357 x10(3)/mcL 06/14/2024 12:54 PM EST [facility] Blood ARTERIAL BLOOD / Unknown 06/14/2024 12:30 PM EST Comment:Pre-op diagnosis: CAD Bobby Loja MD HEMATOLOGY ORDERABLE S [facility] [place] [address] * (ABNORMAL) Hemoglobin and Hematocrit, blood (06/14/2024 12:30 PM EST) Hemoglobin 10.9(L) 13.7 - 16.5 g/dL 06/14/2024 12:54 PM EST [facility] Hematocrit 33.5(L) 40.5 - 48.5 % 06/14/2024 12:54 PM EST [facility] Comment:This result has been called to Danielle López by Satya Page on 06/14/2024 12:53:56, and has been read back. Blood ARTERIAL BLOOD / Unknown 06/14/2024 12:30 PM EST 06/14/2024 12:42 PM EST Comment:Pre-op diagnosis: CAD Bobby Loja MD HEMATOLOGY ORDERABLE S Performing Organization Address [facility] Co de Phone Number [facility] [place] [address] * APTT (06/14/2024 12:30 PM EST) Partial Thromboplastin Time 31 25 - 37 sec 06/14/2024 12:57 PM EST [facility] Comment: The PTT is NOT appropriate for heparin monitoring. Use the Anti-Xa level for heparin monitoring (HEP UFH) or LMWH monitoring (HEP LMW). A PTT less than 37 seconds generally indicates adequate hemostasis. Blood ARTERIAL BLOOD / Unknown 06/14/2024 12:30 PM EST 06/14/2024 12:42 PM EST Comment:Pre-op diagnosis: CAD Bobby Loja MD HEMATOLOGY ORDERABLE S Performing Organization Address [facility] Co de Phone Number [facility] [place] [address] * (ABNORMAL) Prothrombin Time (06/14/2024 12:30 PM EST) Prothrombin Time 16.8(H) 9.4 - 12.5 sec 06/14/2024 12:57 PM EST [facility] International Normalization Ratio 1.5 <=4.9 06/14/2024 12:57 PM EST [facility] Comment: An INR < 2.0 [...] MD HEMATOLOGY ORDERABLE S Performing Organization Address [facility] Co de Phone Number [facility] [place] [address] * Fibrinogen (06/14/2024 12:30 PM EST) Fibrinogen 211 200 - 393 mg/dL 06/14/2024 12:57 PM EST [facility] Comment: A fibrinogen level >100 mg/dL is adequate for hemostasis in most patients without underlying bleeding disorders. Blood ARTERIAL BLOOD / Unknown 06/14/2024 12:30 PM EST 06/14/2024 12:42 PM EST Comment:Pre-op diagnosis: CAD Bobby Loja MD HEMATOLOGY ORDERABLE S Performing Organization Address [facility] Co de Phone Number [facility] [place] [address] * (ABNORMAL) Blood Gas, Arterial POC (06/14/2024 12:15 PM EST) pH, Arterial 7.38 7.35 - 7.45 06/14/2024 12:16 PM EST [facility] PCO2, Arterial 40 35 - 45 mmHg 06/14/2024 12:16 PM EST [facility] Bicarbonate, Arterial 22.9 20.0 - 26.0 mmol/L 06/14/2024 12:16 PM EST [facility] Base Excess, Arterial -2.3 -3.0 - 3.0 mmol/L 06/14/2024 12:16 PM EST [facility] Hemoglobin, Arterial 11.4(L) 13.7 - 16.5 g/dL 06/14/2024 12:16 PM [facility] Oxyhemoglobin, Arterial 98.8(H) 94.0 - 97.0 % 06/14/2024 12:16 PM [facility] Carboxyhemoglobin , Arterial 0.3 % 06/14/2024 12:16 PM [facility] Comment: Nonsmokers: 0.5-1.5% COHB ?? Smokers: Variable ??but usually less than 10% ?? Toxic: 20-30% COHB ?? Lethal: Greater than 60% COHB Methemoglobin, Arterial 0.6 <=1.5 % 06/14/2024 12:16 PM [facility] Sodium, Arterial 134(L) 135 - 145 mmol/L 06/14/2024 12:16 PM [facility] Potassium, Arterial 5.4(H) 3.5 - 5.0 mmol/L 06/14/2024 12:16 PM [facility] Chloride, Arterial 105 98 - 107 mmol/L 06/14/2024 12:16 PM [facility] Lactate, Arterial 1.3 0.5 - 2.2 mmol/L 06/14/2024 12:16 PM [facility] IONIZED CALCIUM, ARTERIAL 1.08(L) 1.15 - 1.33 mmol/L 06/14/2024 12:16 PM [facility] Glucose, Arterial 161 65 - 199 mg/dL 06/14/2024 12:16 PM [facility] Comment:Glucose Concentratio n >=200 mg/dL plus symptoms is consistent with Diabetes Mellitus. Blood ARTERIAL BLOOD / Unknown 06/14/2024 12:15 PM EST 06/14/2024 12:16 PM EST Haja Byrnes MD POINT OF CARE TEST O RDERABLES [facility] [place] [address] * (ABNORMAL) Blood Gas, Arterial POC (06/14/2024 11:51 AM EST) pH, Arterial 7.40 7.35 - 7.45 06/14/2024 11:52 AM [facility] PCO2, Arterial 41 35 - 45 mmHg 06/14/2024 11:52 AM [facility] PO2, Arterial 332(H) 85 - 104 mmHg 06/14/2024 11:52 AM [facility] Bicarbonate, Arterial 24.7 20.0 - 26.0 mmol/L 06/14/2024 11:52 AM [facility] Base Excess, Arterial -0.1 -3.0 - 3.0 mmol/L 06/14/2024 11:52 AM [facility] Hemoglobin, Arterial 11.1(L) 13.7 - 16.5 g/dL 06/14/2024 11:52 AM [facility] Oxyhemoglobin, Arterial 98.7(H) 94.0 - 97.0 % 06/14/2024 11:52 AM [facility] Carboxyhemoglobin , Arterial 0.3 % 06/14/2024 11:52 AM [facility] Comment: Nonsmokers: 0.5-1.5% COHB ?? Smokers: Variable ??but usually less than 10% ?? Toxic: 20-30% COHB ?? Lethal: Greater than 60% COHB Methemoglobin, Arterial 0.4 <=1.5 % 06/14/2024 11:52 AM [facility] Sodium, Arterial 135 135 - 145 mmol/L 06/14/2024 11:52 AM [facility] Potassium, Arterial 5.7(H) 3.5 - 5.0 mmol/L 06/14/2024 11:52 AM [facility] Chloride, Arterial 105 98 - 107 mmol/L 06/14/2024 11:52 AM [facility] Lactate, Arterial 1.2 0.5 - 2.2 mmol/L 06/14/2024 11:52 AM [facility] IONIZED CALCIUM, ARTERIAL 1.10(L) 1.15 - 1.33 mmol/L 06/14/2024 11:52 AM EST [facility] Glucose, Arterial 148 65 - 199 mg/dL 06/14/2024 11:52 AM EST [facility] Comment:Glucose Concentratio n >=200 mg/dL plus symptoms is consistent with Diabetes Mellitus. Blood ARTERIAL BLOOD / Unknown 06/14/2024 11:51 AM EST 06/14/2024 11:52 AM EST Haja Byrnes MD POINT OF CARE TEST O RDERABLES [facility] [place] [address] * (ABNORMAL) Blood Gas, Arterial POC (06/14/2024 11:27 AM EST) pH, Arterial 7.38 7.35 - 7.45 06/14/2024 11:28 AM [facility] PCO2, Arterial 37 35 - 45 mmHg 06/14/2024 11:28 AM [facility] PO2, Arterial 348(H) 85 - 104 mmHg 06/14/2024 11:28 AM [facility] Bicarbonate, Arterial 21.1 20.0 - 26.0 mmol/L 06/14/2024 11:28 AM [facility] Base Excess, Arterial -4.1(L) -3.0 - 3.0 mmol/L 06/14/2024 11:28 AM [facility] Hemoglobin, Arterial 11.0(L) 13.7 - 16.5 g/dL 06/14/2024 11:28 AM [facility] Oxyhemoglobin, Arterial 98.7(H) 94.0 - 97.0 % 06/14/2024 11:28 AM [facility] Carboxyhemoglobin , Arterial 0.3 % 06/14/2024 11:28 AM [facility] Comment: Nonsmokers: 0.5-1.5% COHB ?? Smokers: Variable ??but usually less than 10% ?? Toxic: 20-30% COHB ?? Lethal: Greater than 60% COHB Methemoglobin, Arterial 0.4 <=1.5 % 06/14/2024 11:28 AM [facility] Sodium, Arterial 132(L) 135 - 145 mmol/L 06/14/2024 11:28 AM [facility] Potassium, Arterial 5.8(H) 3.5 - 5.0 mmol/L 06/14/2024 11:28 AM [facility] Chloride, Arterial 105 98 - 107 mmol/L 06/14/2024 11:28 AM [facility] Lactate, Arterial 1.1 0.5 - 2.2 mmol/L 06/14/2024 11:28 AM [facility] IONIZED CALCIUM, ARTERIAL 1.03(L) 1.15 - 1.33 mmol/L 06/14/2024 11:28 AM [facility] Glucose, Arterial 147 65 - 199 mg/dL 06/14/2024 11:28 AM [facility] Comment:Glucose Concentratio n >=200 mg/dL plus symptoms is consistent with Diabetes Mellitus. Blood ARTERIAL BLOOD / Unknown 06/14/2024 11:27 AM EST 06/14/2024 11:28 AM EST Haja Byrnes MD POINT OF CARE TEST O RDERABLES [facility] [place] [address] * (ABNORMAL) Scan, Peripheral Blood (06/14/2024 11:23 AM EST) RBC Morphology Abnormal 06/14/2024 11:59 AM [facility] Platelet Estimate Decreased(A) Normal 06/14/2024 11:59 AM [facility] Alto cells 1-5 /HPF 06/14/2024 11:59 AM [facility] Blood ARTERIAL BLOOD / Unknown 06/14/2024 11:23 AM EST 06/14/2024 11:27 AM EST Bobby Loja MD HEMATOLOGY ORDERABLE S [facility] [place] [address] * (ABNORMAL) Platelet count (06/14/2024 11:23 AM EST) Platelet 86(L) 145 - 357 x10(3)/mcL 06/14/2024 11:59 AM EST [facility] Blood ARTERIAL BLOOD / Unknown 06/14/2024 11:23 AM EST Comment:Pre-op diagnosis: CAD Bobby Loja MD HEMATOLOGY ORDERABLE S Performing Organization Address [facility]/ZIP Co de Phone Number [facility] [place] [address] * (ABNORMAL) Hemoglobin and Hematocrit, blood (06/14/2024 11:23 AM EST) Hemoglobin 9.8(L) 13.7 - 16.5 g/dL 06/14/2024 11:59 AM EST [facility] Comment:This result has been called to Danielle López by Satya Page on 06/14/2024 11:58:33. Hematocrit 30.5(L) 40.5 - 48.5 % 06/14/2024 11:59 AM EST [facility] Comment:This result has been called to Danielle López by Satya Page on 06/14/2024 11:58:40, and has been read back. Blood ARTERIAL BLOOD / Unknown 06/14/2024 11:23 AM EST 06/14/2024 11:27 AM EST Comment:Pre-op diagnosis: CAD Bobby Loja MD HEMATOLOGY ORDERABLE S Performing Organization Address City/[facility]/ZIP Co de Phone Number [facility] [place] [address] * (ABNORMAL) Blood Gas, Arterial POC (06/14/2024 10:58 AM [facility]) pH, Arterial 7.38 7.35 - 7.45 06/14/2024 10:59 AM [facility] PCO2, Arterial 43 35 - 45 mmHg 06/14/2024 10:59 AM [facility] PO2, Arterial 401(H) 85 - 104 mmHg 06/14/2024 10:59 AM [facility] Bicarbonate, Arterial 24.8 20.0 - 26.0 mmol/L 06/14/2024 10:59 AM [facility] Base Excess, Arterial -0.5 -3.0 - 3.0 mmol/L 06/14/2024 10:59 AM [facility] Hemoglobin, Arterial 11.9(L) 13.7 - 16.5 g/dL 06/14/2024 10:59 AM [facility] Oxyhemoglobin, Arterial 99.0(H) 94.0 - 97.0 % 06/14/2024 10:59 AM [facility] Carboxyhemoglobin , Arterial 0.3 % 06/14/2024 10:59 AM [facility] Comment: Nonsmokers: 0.5-1.5% COHB ?? Smokers: Variable ??but usually less than 10% ?? Toxic: 20-30% COHB ?? Lethal: Greater than 60% COHB Methemoglobin, Arterial 0.3 <=1.5 % 06/14/2024 10:59 AM [facility] Sodium, Arterial 128(L) 135 - 145 mmol/L 06/14/2024 10:59 AM [facility] Potassium, Arterial 6.6(HHH) 3.5 - 5.0 mmol/L 06/14/2024 10:59 AM [facility] Chloride, Arterial 99 98 - 107 mmol/L 06/14/2024 10:59 AM [facility] Lactate, Arterial 1.3 0.5 - 2.2 mmol/L 06/14/2024 10:59 AM [facility] IONIZED CALCIUM, ARTERIAL 1.00(L) 1.15 - 1.33 mmol/L 06/14/2024 10:59 AM [facility] Glucose, Arterial 155 65 - 199 mg/dL 06/14/2024 10:59 AM [facility] Comment:Glucose Concentratio n >=200 mg/dL plus symptoms is consistent with Diabetes Mellitus. Blood ARTERIAL BLOOD / Unknown 06/14/2024 10:58 AM EST 06/14/2024 10:59 AM EST Haja Byrnes MD POINT OF CARE TEST O RDERABLES [facility] [place] [address] * (ABNORMAL) Blood Gas, Arterial POC (06/14/2024 10:26 AM EST) pH, Arterial 7.29(LLL) 7.35 - 7.45 06/14/2024 10:27 AM [facility] PCO2, Arterial 43 35 - 45 mmHg 06/14/2024 10:27 AM [facility] PO2, Arterial 369(H) 85 - 104 mmHg 06/14/2024 10:27 AM [facility] Bicarbonate, Arterial 19.9(L) 20.0 - 26.0 mmol/L 06/14/2024 10:27 AM [facility] Base Excess, Arterial -6.7(L) -3.0 - 3.0 mmol/L 06/14/2024 10:27 AM [facility] Hemoglobin, Arterial 12.6(L) 13.7 - 16.5 g/dL 06/14/2024 10:27 AM [facility] Oxyhemoglobin, Arterial 99.1(H) 94.0 - 97.0 % 06/14/2024 10:27 AM [facility] Carboxyhemoglobin , Arterial 0.1 % 06/14/2024 10:27 AM [facility] Comment: Nonsmokers: 0.5-1.5% COHB ?? Smokers: Variable ??but usually less than 10% ?? Toxic: 20-30% COHB ?? Lethal: Greater than 60% COHB Methemoglobin, Arterial 0.4 <=1.5 % 06/14/2024 10:27 AM [facility] Sodium, Arterial 129(L) 135 - 145 mmol/L 06/14/2024 10:27 AM [facility] Potassium, Arterial 5.0 3.5 - 5.0 mmol/L 06/14/2024 10:27 AM [facility] Chloride, Arterial 99 98 - 107 mmol/L 06/14/2024 10:27 AM [facility] Lactate, Arterial 0.9 0.5 - 2.2 mmol/L 06/14/2024 10:27 AM [facility] IONIZED CALCIUM, ARTERIAL 1.05(L) 1.15 - 1.33 mmol/L 06/14/2024 10:27 AM [facility] Glucose, Arterial 149 65 - 199 mg/dL 06/14/2024 10:27 AM [facility] Comment:Glucose Concentratio n >=200 mg/dL plus symptoms is consistent with Diabetes Mellitus. Blood ARTERIAL BLOOD / Unknown 06/14/2024 10:26 AM EST 06/14/2024 10:27 AM EST Haja Byrnes MD POINT OF CARE TEST O RDERABLES [facility] [place] [address] * (ABNORMAL) Blood Gas, Arterial POC (06/14/2024 10:25 AM EST) pH, Arterial 7.26(LLL) 7.35 - 7.45 06/14/2024 10:26 AM [facility] PCO2, Arterial 48(H) 35 - 45 mmHg 06/14/2024 10:26 AM [facility] Bicarbonate, Arterial 21.2 20.0 - 26.0 mmol/L 06/14/2024 10:26 AM [facility] Base Excess, Arterial -5.8(L) -3.0 - 3.0 mmol/L 06/14/2024 10:26 AM [facility] Hemoglobin, Arterial 12.5(L) 13.7 - 16.5 g/dL 06/14/2024 10:26 AM [facility] Oxyhemoglobin, Arterial 82.3(L) 94.0 - 97.0 % 06/14/2024 10:26 AM [facility] Carboxyhemoglobin , Arterial 0.5 % 06/14/2024 10:26 AM [facility] Comment: Nonsmokers: 0.5-1.5% COHB ?? Smokers: Variable ??but usually less than 10% ?? Toxic: 20-30% COHB ?? Lethal: Greater than 60% COHB Methemoglobin, Arterial 0.5 <=1.5 % 06/14/2024 10:26 AM [facility] Sodium, Arterial 131(L) 135 - 145 mmol/L 06/14/2024 10:26 AM [facility] Potassium, Arterial 4.6 3.5 - 5.0 mmol/L 06/14/2024 10:26 AM [facility] Chloride, Arterial 103 98 - 107 mmol/L 06/14/2024 10:26 AM [facility] Lactate, Arterial 0.8 0.5 - 2.2 mmol/L 06/14/2024 10:26 AM [facility] IONIZED CALCIUM, ARTERIAL 0.91(LLL) 1.15 - 1.33 mmol/L 06/14/2024 10:26 AM [facility] Glucose, Arterial 148 65 - 199 mg/dL 06/14/2024 10:26 AM [facility] Comment:Glucose Concentratio n >=200 mg/dL plus symptoms is consistent with Diabetes Mellitus. Blood ARTERIAL BLOOD / Unknown 06/14/2024 10:25 AM EST 06/14/2024 10:26 AM EST Haja Byrnes MD POINT OF CARE TEST O RDERABLES [facility] [place] [address] * Surgical Pathology (06/14/2024 9:53 AM EST) Case Report Surgical Pathology Report ? Case: [id number] ? Authorizing Provider: ??Bobby Loja MD ? Collected: ? 06/14/2024 0953 ? Ordering Location: ? Main Operating Room [facility] ?? Received: ?06/14/2024 1413 ? [facility] ? Hospital ? Pathologist: ? Sandra Salas MD ? Specimens: ?? A) - Soft Tissue Mass, mediastinal mass ? B) - Heart, Atrial Appendage, Left ? 06/18/2024 10:18 AM [facility] Final Diagnosis A. Soft Tissue Mass, Mediastinal Mass, Excision: - Atrophic thymic tissue B. Heart, Atrial Appendage, Left, Excision: - Mild myocyte hypertrophy 06/18/2024 10:18 AM [facility] Clinical Information A. Soft Tissue Mass, mediastinal mass Soft tissue mass Mediastinal mass B. Heart, Atrial Appendage, Left, *Other - as specified in Clinical Information MARIALUISA 06/18/2024 10:18 AM [facility] Gross Description A. Soft Tissue Mass, mediastinal mass. A - Labeled/Fixative : Mediastinal mass, fresh. Quantity/Size: Single, 7.2 x 5.3 x 1.2 cm. Tissue Description: Unoriented, intact portion of soft, rodriguez-yellow, lobulated tissue. The cut surface is homogenously pale-rodriguez, yellow and lobulated. No lesions or nodules are identified. Inking: External surface inked black Sections/Process ing: Is Architect sections in 4 cassettes labeled A1-A4. cmk B. Heart, Atrial Appendage, Left, . B - Labeled/Fixative : Heart, atrial appendage, left, fresh. Quantity/Size: Single, 3.3 x 1.5 x 0.8 cm. Tissue Description: Portion of heart tissue consisting of rodriguez-white, semitranslucent, smooth endocardium with rodriguez-brown muscular myocardium and thin translucent epicardium with adherent adipose tissue. No areas of discoloration identified. Sections/Process ing: Is Architect sections in 1 cassette labeled B1. cmk 06/18/2024 10:18 AM [facility] Result Note Routine 06/18/2024 10:18 AM [facility] Tissue SOFT TISSUE MASS / Unknown 06/14/2024 9:53 AM EST 06/14/2024 2:13 PM EST Comment:Mediastinal mass Tissue specimen (specimen) LEFT ATRIAL APPENDAGE ABSENT / Unknown 06/14/2024 10:54 AM EST 06/14/2024 2:13 PM EST Comment:MARIALUISA Bobby Loja MD PATHOLOGY/CYTOLOGY [facility] [place] [address] * Cooximetry, POC (06/14/2024 9:00 AM EST) pO2, Coox 57 mmHg 06/14/2024 9:04 AM [facility] PO2 Corrected, COOX 50 mmHg 06/14/2024 9:04 AM [facility] Hemoglobin, Coox 14.3 13.7 - 16.5 g/dL 06/14/2024 9:04 AM [facility] Oxyhemoglobin, Coox 86.2 % 06/14/2024 9:04 AM [facility] Carboxyhemoglobi n, Coox 0.3 % 06/14/2024 9:04 AM [facility] Comment: Nonsmokers: 0.5-1.5% COHB ?? Smokers: Variable ??but usually less than 10% ?? Toxic: 20-30% COHB ?? Lethal: Greater than 60% COHB Methemoglobin, Coox 0.3 <=1.5 % 06/14/2024 9:04 AM [facility] Temperature Coox 35.2 C 06/14/20 24 9:04 AM [facility] Blood (Mixed Venous) 06/14/2024 9:00 AM EST 06/14/2024 9:04 AM EST Haja Byrnes MD POINT OF CARE TEST O [facility] [place] [address] * (ABNORMAL) Blood Gas, Arterial POC (06/14/2024 8:39 AM EST) pH, Arterial 7.37 7.35 - 7.45 06/14/2024 8:40 AM [facility] PCO2, Arterial 42 35 - 45 mmHg 06/14/2024 8:40 AM [facility] PO2, Arterial 341(H) 85 - 104 mmHg 06/14/2024 8:40 AM [facility] Bicarbonate, Arterial 23.7 20.0 - 26.0 mmol/L 06/14/2024 8:40 AM [facility] Base Excess, Arterial -1.6 -3.0 - 3.0 mmol/L 06/14/2024 8:40 AM [facility] Hemoglobin, Arterial 15.2 13.7 - 16.5 g/dL 06/14/2024 8:40 AM [facility] Oxyhemoglobin, Arterial 99.2(H) 94.0 - 97.0 % 06/14/2024 8:40 AM [facility] Carboxyhemoglobin , Arterial 0.1 % 06/14/2024 8:40 AM [facility] Comment: Nonsmokers: 0.5-1.5% COHB ?? Smokers: Variable ??but usually less than 10% ?? Toxic: 20-30% COHB ?? Lethal: Greater than 60% COHB Methemoglobin, Arterial 0.3 <=1.5 % 06/14/2024 8:40 AM [facility] Sodium, Arterial 136 135 - 145 mmol/L 06/14/2024 8:40 AM [facility] Potassium, Arterial 4.2 3.5 - 5.0 mmol/L 06/14/2024 8:40 AM [facility] Chloride, Arterial 102 98 - 107 mmol/L 06/14/2024 8:40 AM EST [facility] Lactate, Arterial 0.9 0.5 - 2.2 mmol/L 06/14/2024 8:40 AM EST [facility] IONIZED CALCIUM, ARTERIAL 1.17 1.15 - 1.33 mmol/L 06/14/2024 8:40 AM EST [facility] Glucose, Arterial 121 65 - 199 mg/dL 06/14/2024 8:40 AM EST [facility] Comment:Glucose Concentratio n >=200 mg/dL plus symptoms is consistent with Diabetes Mellitus. Blood ARTERIAL BLOOD / Unknown 06/14/2024 8:39 AM EST 06/14/2024 8:40 AM EST Haja Byrnes MD POINT OF CARE TEST O RDERABLES Performing Organization Address City/State/[facility] Co de Phone Number [facility] [place] [address] * Transesophageal Echo/OR (06/14/2024 7:20 AM EST) Anatomical Region Laterality Modality Cardiac Other 06/14/2024 7:20 AM EST Narrative 06/14/2024 4:36 PM EST Version: 2 Study ID: [id number] [place] [address] ?OR Transesophageal Echo Report Name: GEORGE MEHTA [...] of this mass after consultation with other executive administrative asst experts and the decision was made by [...] MD - 06/14/2024 Version: 2 Study ID: [id number] [address] [place] [id number] ORTransesophageal Echo Report Name: GEORGE MEHTA Study [...] of this mass after consultation with other executive administrative asst experts and thedecision was made by surgeon [...] - 199 mg/dL 06/14/2024 7:12 AM EST [facility] Comment:Supplemental ranges: <140 mg/dL before meals <180 mg/dL all other times of the day. Blood CAPILLARY BLOOD / Unknown 06/14/2024 7:11 AM EST 06/14/2024 7:12 AM EST Haja Byrnes MD POINT OF CARE TEST O RDERABLES Performing Organization Address City/[facility]/ZIP Co de Phone Number [facility] [place] [address] * POC, GLUCOSE (06/14/2024 4:30 AM EST) Glucometer, POC 85 65 - 199 mg/dL 06/14/2024 4:30 AM EST [facility] Comment:Supplemental ranges: <140 mg/dL before meals <180 mg/dL all other times of the day. Blood CAPILLARY BLOOD / Unknown 06/14/2024 4:30 AM EST 06/14/2024 4:30 AM EST Haja Byrnes MD POINT OF CARE TEST O RDERABLES Performing Organization Address City/[facility]/ZIP Co de Phone Number [facility] [place] [address] * (ABNORMAL) Heparin (unfractionated) Level (06/14/2024 12:12 AM EST) Pathologist [facility] UF Heparin 1.02(HHH) IU/mL 06/14/2024 12:46 AM EST [facility] Comment: Heparin (anti-Xa) levels should [...] EST Shahnaz Scanlon MD HEMATOLOGY ORDERABLE S [facility] [place] [address] * (ABNORMAL) CBC (with Diff) (06/14/2024 12:12 AM EST) Pathologist [facility] White Blood Cell 10.51(H) 4.00 - 9.50 x10(3)/mc L 06/14/2024 12:38 AM EST [facility] Red Blood Cell 4.99 4.58 - 5.54 x10(6)/mc L 06/14/2024 12:38 AM EST [facility] Hemoglobin 14.9 13.7 - 16.5 g/dL 06/14/2024 12:38 AM EST [facility] Hematocrit 45.9 40.5 - 48.5 % 06/14/2024 12:38 AM [facility] Mean Cell Volume 92.0 82.9 - 93.1 fL 06/14/2024 12:38 AM [facility] Mean Cell Hemoglobin 29.9 27.5 - 32.1 pg 06/14/2024 12:38 AM [facility] Mean Cell Hemoglobin Concentration 32.5 32.0 - 35.7 g/dL 06/14/2024 12:38 AM [facility] Platelet 162 145 - 357 x10(3)/mc L 06/14/2024 12:38 AM [facility] Mean Platelet Volume 10.1 7.6 - 12.9 fL 06/14/2024 12:38 AM [facility] RDW Standard Deviation 46.9(H) 36.0 - 45.0 fL 06/14/2024 12:38 AM [facility] RDW coefficient of variation 13.8 11.4 - 13.8 % 06/14/2024 12:38 AM [facility] NRBC% auto 0.0 % 06/14/2024 12:38 AM [facility] NRBC Absolute <0.01 <0.01 x10(3)/mc L 06/14/2024 12:38 AM [facility] Neutrophil % 56.7 % 06/14/2024 12:38 AM [facility] Neutrophil Absolute (ANC) - Automated 5.96 1.70 - 6.10 x10(3)/mc L 06/14/2024 12:38 AM [facility] Lymph % 26.8 % 06/14/2024 12:38 AM [facility] Lymph Absolute 2.82 0.90 - 3.20 x10(3)/mc L 06/14/2024 12:38 AM [facility] Monocyte % 11.2 % 06/14/2024 12:38 AM [facility] Monocyte Absolute 1.18(H) 0.30 - 0.90 x10(3)/mc L 06/14/2024 12:38 AM EST [facility] Eos % 3.9 % 06/14/2024 12:38 AM EST [facility] Eos Absolute 0.41(H) 0.00 - 0.40 x10(3)/mc L 06/14/2024 12:38 AM EST [facility] Basophil % 0.8 % 06/14/2024 12:38 AM EST [facility] Baso Absolute 0.08 0.00 - 0.10 x10(3)/mc L 06/14/2024 12:38 AM EST [facility] Immature Gran % 0.6 % 12:38 AM [facility] Immature Gran Absolute 0.06(H) 0.00 - 0.04 x10(3)/mc L 06/14/2024 12:38 AM EST [facility] Blood VENOUS BLOOD SPECIMEN / Unknown Venipuncture / Unknown 06/14/2024 12:12 AM EST 06/14/2024 12:29 AM EST Shahnaz Scanlon MD HEMATOLOGY ORDERABLE S [facility] [place] [address] * Magnesium (06/14/2024 12:12 AM EST) Magnesium 0.74 0.69 - 1.07 mMol/L 06/14/2024 12:57 AM EST [facility] Blood VENOUS BLOOD SPECIMEN / Unknown Venipuncture / Unknown 06/14/2024 12:12 AM EST 06/14/2024 12:29 AM EST Shahnaz Scanlon MD CHEMISTRY ORDERABLES [facility] [place] [address] * (ABNORMAL) Basic Metabolic Panel (06/14/2024 12:12 AM EST) Glucose 97 65 - 199 mg/dL 06/14/2024 12:57 AM [facility] Comment:Glucose Concentratio n >=200 mg/dL plus symptoms is consistent with Diabetes Mellitus. Blood Urea Nitrogen 25(H) 10 - 20 mg/dL 06/14/2024 12:57 AM [facility] Creatinine 1.14 0.80 - 1.50 mg/dL 06/14/2024 12:57 AM [facility] Sodium 135 135 - 145 mMol/L 06/14/2024 12:57 AM [facility] Potassium 4.1 3.5 - 5.0 mMol/L 06/14/2024 12:57 AM [facility] Chloride 100 98 - 107 mMol/L 06/14/2024 12:57 AM [facility] Carbon Dioxide 25 22 - 31 mMol/L 06/14/2024 12:57 AM [facility] Anion Gap 10 5 - 15 mMol/L 06/14/2024 12:57 AM [facility] Calcium 9.5 8.5 - 10.5 mg/dL 06/14/2024 12:57 AM [facility] Est Glomerular Filtration Rate - Male 70 mL/min/1. 73 m?? 06/14/2024 12:57 AM [facility] Comment: This patient's estimated GFR [...] Scanlon MD CHEMISTRY ORDERABLES Performing Organization Address [facility]/ZIP Co de Phone Number [facility] [place] [address] * Scan Doc: Implantable Devices (06/14/2024 12:00 AM EST) Narrative 06/14/2024 12:00 AM EST Ordered by an unspecified provider. Scanning Provider MEDIA MGR SCAN EXT O RDR/RSLT * POC, GLUCOSE (06/13/2024 11:12 PM EST) Glucometer, POC 104 65 - 199 mg/dL 06/13/2024 11:13 PM EST [facility] Comment:Supplemental ranges: <140 mg/dL before meals <180 mg/dL all other times of the day. Blood CAPILLARY BLOOD / Unknown 06/13/2024 11:12 PM EST 06/13/2024 11:13 PM EST Haja Byrnes MD POINT OF CARE TEST O RDERABLES Performing Organization Address [facility]/ZIP Co de Phone Number [facility] [place] [address] * (ABNORMAL) POC, GLUCOSE (06/13/2024 8:03 PM EST) Glucometer, POC 206(H) 65 - 199 mg/dL 06/13/2024 8:03 PM EST [facility] Comment:Supplemental ranges: <140 mg/dL before meals <180 mg/dL all other times of the day. Blood CAPILLARY BLOOD / Unknown 06/13/2024 8:03 PM EST 06/13/2024 8:03 PM EST Haja Byrnes MD POINT OF CARE TEST O RDERABLES Performing Organization Address City/[facility]/ZIP Co de Phone Number [facility] [place] [address] * Heparin (unfractionated) Level (06/13/2024 4:11 PM EST) [facility] UF Heparin 0.76 IU/mL 06/13/2024 4:24 PM EST [facility] Comment: Heparin (anti-Xa) levels should [...] EST Shahnaz Scanlon MD HEMATOLOGY ORDERABLE S [facility] [place] [address] * ABORH RECHECK (06/13/2024 4:11 PM EST) [facility] ABORH Recheck O POSITIVE 06/13/2024 4:50 PM EST [facility] Blood VENOUS BLOOD SPECIMEN / Unknown Venipuncture / Unknown 06/13/2024 4:11 PM EST 06/13/2024 4:19 PM EST Haja Byrnes MD BLOOD BANK LAB ORDER [place] [facility] [place] [address] * (ABNORMAL) POC, GLUCOSE (06/13/2024 4:09 PM EST) Glucometer, POC 216(H) 65 - 199 mg/dL 06/13/2024 4:10 PM EST [facility] Comment:Supplemental ranges: <140 mg/dL before meals <180 mg/dL all other times of the day. Blood CAPILLARY BLOOD / Unknown 06/13/2024 4:09 PM EST 06/13/2024 4:10 PM EST Haja Byrnes MD POINT OF CARE TEST O RDERABLES [facility] [place] [address] * Type and screen ([facility]CGP/RAFITA) (06/13/2024 11:53 AM EST) [facility] ABORH Type O POSITIVE 06/13/2024 1:16 PM EST [facility] PATIENT HISTORY Not Found 06/13/2024 1:16 PM EST [facility] Expires at [id number] on: 06/16/2024 06/13/2024 1:16 PM EST [facility] ANTIBODY SCREEN AUTOMATED Negative 06/13/2024 1:16 PM EST [facility] T&S only valid at [facility] 06/13/2024 1:16 PM EST [facility] Blood VENOUS BLOOD SPECIMEN / Unknown Venipuncture / Unknown 06/13/2024 11:53 AM EST 06/13/2024 11:56 AM EST Narrative [facility] - 06/13/2024 1:16 PM EST This Type and Screen result is only valid at the [facility] Haja Byrnes MD BLOOD BANK LAB ORDER [place] [facility] [place] [address] * POC, GLUCOSE (06/13/2024 11:50 AM EST) Glucometer, POC 178 65 - 199 mg/dL 06/13/2024 11:51 AM EST [facility] Comment:Supplemental ranges: <140 mg/dL before meals <180 mg/dL all other times of the day. Blood CAPILLARY BLOOD / Unknown 06/13/2024 11:50 AM EST 06/13/2024 11:51 AM EST Haja Byrnes MD POINT OF CARE TEST O RDERABLES [facility] [place] [address] * XR Chest One View (06/13/2024 10:35 AM EST) WORKSTATION ID [id number] RAD Anatomical Region Laterality Modality Chest N/A [...] have questions please contact the health healthcare account manager that requested your imaging first. ? [...] who have questions please contactthe health healthcare account manager that requested your imaging first. Electronically signed by: Jyothi Simon MD, [facility]([phone]), at 06/13/2024 10:43 AM Haja Byrnes MD IMG DX ORDERABLES * CARDIAC CATHETERIZATION (06/13/2024 9:02 AM EST) Anatomical Region Laterality Modality Other Narrative 06/15/2024 9:07 AM EST ?[facility] ? Cardiac Catheterization/Intervention Report ? Patient Name: Tyson, George L. ? Procedure Date: 06/13/2024 ? A #: [id number] ? Primary Physician: Nuha Shen I ? Case #: [id number] ? File Name: [id number] ? Catheterization Order Number: [id number] ? [facility] ? Final Report [place], [place] ? Patient Name: ? George L. Tyson ? ID#: ?[id number] ? : ?1955 ? Procedure Date: ? June 13, 2024 ?Case #: ? [id number] ? Room: ? 6 ? Case Physician: [...] ?was designated as ASA Class IV. The [facility] clinical frailty scale is 5: ?Mildly Frail. [...] was Urgent. The indication for ?the labor commissioner visit is ACS greater than 24 hrs [...] vascular ?ultrasound and IABP insertion in labor commissioner. ? Nuha I Hermelinda, M.D. ? Electronically Signed by: Nuha Reyesry, M.D. ? Report Finalized: 06/15/2024 ??08:59 ? Procedure Note Nuha Shen MD - 06/15/2024 [facility] Cardiac Catheterization/Intervention Report Patient Name: George Mehta Procedure Date: 06/13/2024 A #: [id number] Primary Physician: Nuha Shen I Case #: [id number] File Name: [id number] Catheterization Order Number: [id number] [facility] FinalReport [place], [place] Patient Name: George Mehta ID#:[id number] :1955 Procedure Date: June 13, 2024 Case [...] was designated as ASA Class IV. The [facility] clinical frailty scale is5: Mildly Frail. Diagnostic [...] procedure was Urgent. The indicationfor the labor commissioner visit is ACS greater than 24 hrs [...] angiography,vascular ultrasound and IABP insertion in labor commissioner. Nuha Shen M.D. Electronically Signed by: Nuha Shen M.D. Report Finalized: 06/15/2024 08:59 Nuha Rojo MD CARDIAC CATH ORDERA BLES * Potassium (06/13/2024 7:48 AM EST) Potassium 4.5 3.5 - 5.0 mMol/L 06/13/2024 8:28 AM EST [facility] Blood VENOUS BLOOD SPECIMEN / Unknown Venipuncture / Unknown 06/13/2024 7:48 AM EST 06/13/2024 7:55 AM EST Shahnaz Scanlon MD CHEMISTRY ORDERABLES [facility] [place] [id number] * POC, GLUCOSE (06/13/2024 7:41 AM EST) Glucometer, POC 126 65 - 199 mg/dL 06/13/2024 7:41 AM EST [facility] Comment:Supplemental ranges: <140 mg/dL before meals <180 mg/dL all other times of the day. Blood CAPILLARY BLOOD / Unknown 06/13/2024 7:41 AM EST 06/13/2024 7:41 AM EST Ethel Carrillo MD POINT OF CARE TEST O NIKA Performing Organization Address [facility] de Phone Number [facility] [place] [address] * POC, GLUCOSE (06/13/2024 3:25 AM EST) Glucometer, POC 99 65 - 199 mg/dL 06/13/2024 3:25 AM EST [facility] Comment:Supplemental ranges: <140 mg/dL before meals <180 mg/dL all other times of the day. Blood CAPILLARY BLOOD / Unknown 06/13/2024 3:25 AM EST 06/13/2024 3:25 AM EST Ethel Carrillo MD POINT OF CARE TEST O NIKA Performing Organization Address [facility] de Phone Number [facility] [place] [address] * Heparin (unfractionated) Level (06/13/2024 2:26 AM EST) UF Heparin 0.60 IU/mL 06/13/2024 3:32 AM EST [facility] Comment: Heparin (anti-Xa) levels should [...] EST Shahnaz Scanlon MD HEMATOLOGY ORDERABLE S [facility] [place] [address] * (ABNORMAL) CBC (with Diff) (06/13/2024 2:26 AM EST) White Blood Cell 9.98(H) 4.00 - 9.50 x10(3)/mc L 06/13/2024 2:41 AM [facility] Red Blood Cell 5.11 4.58 - 5.54 x10(6)/mc L 06/13/2024 2:41 AM [facility] Hemoglobin 15.3 13.7 - 16.5 g/dL 06/13/2024 2:41 AM [facility] Hematocrit 47.1 40.5 - 48.5 % 06/13/2024 2:41 AM [facility] Mean Cell Volume 92.2 82.9 - 93.1 fL 06/13/2024 2:41 AM [facility] Mean Cell Hemoglobin 29.9 27.5 - 32.1 pg 06/13/2024 2:41 AM [facility] Mean Cell Hemoglobin Concentration 32.5 32.0 - 35.7 g/dL 06/13/2024 2:41 AM [facility] Platelet 194 145 - 357 x10(3)/mc L 06/13/2024 2:41 AM [facility] Mean Platelet Volume 9.7 7.6 - 12.9 fL 06/13/2024 2:41 AM [facility] RDW Standard Deviation 47.5(H) 36.0 - 45.0 fL 06/13/2024 2:41 AM [facility] RDW coefficient of variation 13.8 11.4 - 13.8 % 06/13/2024 2:41 AM [facility] NRBC% auto 0.0 % 06/13/2024 2:41 AM [facility] NRBC Absolute <0.01 <0.01 x10(3)/mc L 06/13/2024 2:41 AM [facility] Neutrophil % 48.8 % 06/13/2024 2:41 AM [facility] Neutrophil Absolute (ANC) - Automated 4.87 1.70 - 6.10 x10(3)/mc L 06/13/2024 2:41 AM [facility] Lymph % 35.3 % 06/13/2024 2:41 AM [facility] Lymph Absolute 3.52(H) 0.90 - 3.20 x10(3)/mc L 06/13/2024 2:41 AM [facility] Monocyte % 10.1 % 06/13/2024 2:41 AM [facility] Monocyte Absolute 1.01(H) 0.30 - 0.90 x10(3)/mc L 06/13/2024 2:41 AM [facility] Eos % 4.4 % 06/13/2024 2:41 AM [facility] Eos Absolute 0.44(H) 0.00 - 0.40 x10(3)/mc L 06/13/2024 2:41 AM [facility] Basophil % 0.9 % 06/13/2024 2:41 AM [facility] Baso Absolute 0.09 0.00 - 0.10 x10(3)/mc L 06/13/2024 2:41 AM [facility] Immature Gran % 0.5 % 2:41 AM [facility] Immature Gran Absolute 0.05(H) 0.00 - 0.04 x10(3)/mc L 06/13/2024 2:41 AM [facility] Blood VENOUS BLOOD SPECIMEN / Unknown Venipuncture / Unknown 06/13/2024 2:26 AM EST 06/13/2024 2:32 AM EST Shahnaz Scanlon MD HEMATOLOGY ORDERABLE S [facility] [place] [address] * Magnesium (06/13/2024 2:26 AM EST) Magnesium 0.78 0.69 - 1.07 mMol/L 06/13/2024 2:58 AM EST [facility] Blood VENOUS BLOOD SPECIMEN / Unknown Venipuncture / Unknown 06/13/2024 2:26 AM EST 06/13/2024 2:31 AM EST Shahnaz Scanlon MD CHEMISTRY ORDERABLES Performing Organization Address City/[facility]/ZIP Co de Phone Number [facility] [place] [address] * (ABNORMAL) Basic Metabolic Panel (06/13/2024 2:26 AM EST) Glucose 121 65 - 199 mg/dL 06/13/2024 2:58 AM [facility] Comment:Glucose Concentratio n >=200 mg/dL plus symptoms is consistent with Diabetes Mellitus. Blood Urea Nitrogen 21(H) 10 - 20 mg/dL 06/13/2024 2:58 AM [facility] Creatinine 1.07 0.80 - 1.50 mg/dL 06/13/2024 2:58 AM [facility] Sodium 136 135 - 145 mMol/L 06/13/2024 2:58 AM [facility] Potassium 3.9 3.5 - 5.0 mMol/L 06/13/2024 2:58 AM [facility] Chloride 99 98 - 107 mMol/L 06/13/2024 2:58 AM [facility] Carbon Dioxide 27 22 - 31 mMol/L 06/13/2024 2:58 AM [facility] Anion Gap 10 5 - 15 mMol/L 06/13/2024 2:58 AM EST [facility] Calcium 9.7 8.5 - 10.5 mg/dL 06/13/2024 2:58 AM EST [facility] Est Glomerular Filtration Rate - Male 76 mL/min/1. 73 m?? 06/13/2024 2:58 AM EST [facility] Comment: This patient's estimated GFR [...] AM EST Shahnaz Scanlon MD CHEMISTRY ORDERABLES [facility] [place] [address] * POC, GLUCOSE (06/12/2024 11:53 PM EST) [facility] Signature Glucometer, POC 141 65 - 199 mg/dL 06/12/2024 11:54 PM EST [facility] Comment:Supplemental ranges: <140 mg/dL before meals <180 mg/dL all other times of the day. Blood CAPILLARY BLOOD / Unknown 06/12/2024 11:53 PM EST 06/12/2024 11:54 PM EST Ethel Carrillo MD POINT OF CARE TEST O RDERABLES Performing Organization Address City/[facility]/ZIP Co de Phone Number [facility] [place] [address] * POC, GLUCOSE (06/12/2024 7:32 PM EST) Glucometer, POC 158 65 - 199 mg/dL 06/12/2024 7:32 PM EST [facility] Comment:Supplemental ranges: <140 mg/dL before meals <180 mg/dL all other times of the day. Blood CAPILLARY BLOOD / Unknown 06/12/2024 7:32 PM EST 06/12/2024 7:32 PM EST Ethel Carrillo MD POINT OF CARE TEST O RDBECKIE Performing Organization Address City/[facility]/ZIP Co de Phone Number [facility] [place] [address] * POC, GLUCOSE (06/12/2024 3:41 PM EST) Glucometer, POC 113 65 - 199 mg/dL 06/12/2024 3:41 PM EST [facility] Comment:Supplemental ranges: <140 mg/dL before meals <180 mg/dL all other times of the day. Blood CAPILLARY BLOOD / Unknown 06/12/2024 3:41 PM EST 06/12/2024 3:41 PM EST Ethel Carrillo MD POINT OF CARE TEST O RDERAPIETER Performing Organization Address City/[facility]/ZIP Co de Phone Number [facility] [place] [address] * Potassium (06/12/2024 2:19 PM EST) Potassium 4.5 3.5 - 5.0 mMol/L 06/12/2024 2:45 PM EST [facility] Blood VENOUS BLOOD SPECIMEN / Unknown Venipuncture / Unknown 06/12/2024 2:19 PM EST 06/12/2024 2:23 PM EST Shahnaz Scanlon MD CHEMISTRY ORDERABLES [facility] [place] [address] * (ABNORMAL) POC, GLUCOSE (06/12/2024 11:21 AM EST) Glucometer, POC 207(H) 65 - 199 mg/dL 06/12/2024 11:21 AM EST [facility] Comment:Supplemental ranges: <140 mg/dL before meals <180 mg/dL all other times of the day. Blood CAPILLARY BLOOD / Unknown 06/12/2024 11:21 AM EST 06/12/2024 11:22 AM EST Ethel Carrillo MD POINT OF CARE TEST O NIKA Performing Organization Address City/[facility]/ZIP Co de Phone Number [facility] [place] [address] * POC, GLUCOSE (06/12/2024 8:00 AM EST) Glucometer, POC 169 65 - 199 mg/dL 06/12/2024 8:01 AM EST [facility] Comment:Supplemental ranges: <140 mg/dL before meals <180 mg/dL all other times of the day. Blood CAPILLARY BLOOD / Unknown 06/12/2024 8:00 AM EST 06/12/2024 8:01 AM EST Ethel Carrillo MD POINT OF CARE TEST O NIKA [facility] [place] [address] * POC, GLUCOSE (06/12/2024 4:25 AM EST) Glucometer, POC 132 65 - 199 mg/dL 06/12/2024 4:26 AM EST [facility] Comment:Supplemental ranges: <140 mg/dL before meals <180 mg/dL all other times of the day. Blood CAPILLARY BLOOD / Unknown 06/12/2024 4:25 AM EST 06/12/2024 4:26 AM EST Ethel Carrillo MD POINT OF CARE TEST O RDERABLES Performing Organization Address [facility]/ZIP Co de Phone Number [facility] [place] [address] * Heparin (unfractionated) Level (06/12/2024 3:03 AM EST) UF Heparin 0.55 IU/mL 06/12/2024 3:44 AM EST [facility] Comment: Heparin (anti-Xa) levels should [...] MD HEMATOLOGY ORDERABLE S Performing Organization Address City/[facility]/ZIP Co de Phone Number [facility] [place] [address] * (ABNORMAL) CBC (with Diff) (06/12/2024 3:03 AM EST) White Blood Cell 9.69(H) 4.00 - 9.50 x10(3)/mc L 06/12/2024 3:36 AM EST [facility] Red Blood Cell 5.05 4.58 - 5.54 x10(6)/mc L 06/12/2024 3:36 AM EST [facility] Hemoglobin 15.2 13.7 - 16.5 g/dL 06/12/2024 3:36 AM [facility] Hematocrit 46.6 40.5 - 48.5 % 06/12/2024 3:36 AM [facility] LABORATORY Mean Cell Volume 92.3 82.9 - 93.1 fL 06/12/2024 3:36 AM [facility] Mean Cell Hemoglobin 30.1 27.5 - 32.1 pg 06/12/2024 3:36 AM [facility] Mean Cell Hemoglobin Concentration 32.6 32.0 - 35.7 g/dL 06/12/2024 3:36 AM [facility] Platelet 194 145 - 357 x10(3)/mc L 06/12/2024 3:36 AM [facility] Mean Platelet Volume 10.1 7.6 - 12.9 fL 06/12/2024 3:36 AM [facility] RDW Standard Deviation 47.7(H) 36.0 - 45.0 fL 06/12/2024 3:36 AM [facility] RDW coefficient of variation 14.0(H) 11.4 - 13.8 % 06/12/2024 3:36 AM [facility] NRBC% auto 0.0 % 06/12/2024 3:36 AM [facility] NRBC Absolute <0.01 <0.01 x10(3)/mc L 06/12/2024 3:36 AM [facility] Neutrophil % 49.9 % 06/12/2024 3:36 AM [facility] Neutrophil Absolute (ANC) - Automated 4.82 1.70 - 6.10 x10(3)/mc L 06/12/2024 3:36 AM [facility] Lymph % 33.5 % 06/12/2024 3:36 AM [facility] Lymph Absolute 3.25(H) 0.90 - 3.20 x10(3)/mc L 06/12/2024 3:36 AM [facility] Monocyte % 11.1 % 06/12/2024 3:36 AM EST [facility] Monocyte Absolute 1.08(H) 0.30 - 0.90 x10(3)/mc L 06/12/2024 3:36 AM [facility] Eos % 4.1 % 06/12/2024 3:36 AM [facility] Eos Absolute 0.40 0.00 - 0.40 x10(3)/mc L 06/12/2024 3:36 AM EST [facility] Basophil % 0.8 % 06/12/2024 3:36 AM [facility] Baso Absolute 0.08 0.00 - 0.10 x10(3)/mc L 06/12/2024 3:36 AM [facility] Immature Gran % 0.6 % 3:36 AM [facility] Immature Gran Absolute 0.06(H) 0.00 - 0.04 x10(3)/mc L 06/12/2024 3:36 AM [facility] Blood VENOUS BLOOD SPECIMEN / Unknown Venipuncture / Unknown 06/12/2024 3:03 AM EST 06/12/2024 3:30 AM EST Shahnaz Scanlon MD [place] [address] * Magnesium (06/12/2024 3:03 AM EST) Magnesium 0.79 0.69 - 1.07 mMol/L 06/12/2024 4:01 AM [facility] Blood VENOUS BLOOD SPECIMEN / Unknown Venipuncture / Unknown 06/12/2024 3:03 AM EST 06/12/2024 3:30 AM EST Shahnaz Scanlon MD CHEMISTRY ORDERABLES [facility] [place] [address] * (ABNORMAL) Basic Metabolic Panel (06/12/2024 3:03 AM EST) Glucose 132 65 - 199 mg/dL 06/12/2024 4:01 AM [facility] Comment:Glucose Concentratio n >=200 mg/dL plus symptoms is consistent with Diabetes Mellitus. Blood Urea Nitrogen 23(H) 10 - 20 mg/dL 06/12/2024 4:01 AM [facility] Creatinine 1.15 0.80 - 1.50 mg/dL 06/12/2024 4:01 AM [facility] Sodium 138 135 - 145 mMol/L 06/12/2024 4:01 AM [facility] Potassium 3.8 3.5 - 5.0 mMol/L 06/12/2024 4:01 AM [facility] Chloride 98 98 - 107 mMol/L 06/12/2024 4:01 AM [facility] Carbon Dioxide 29 22 - 31 mMol/L 06/12/2024 4:01 AM [facility] Anion Gap 11 5 - 15 mMol/L 06/12/2024 4:01 AM [facility] Calcium 9.5 8.5 - 10.5 mg/dL 06/12/2024 4:01 AM [facility] Est Glomerular Filtration Rate - Male 70 mL/min/1. 73 m?? 06/12/2024 4:01 AM [facility] Comment: This patient's estimated GFR [...] Scanlon MD CHEMISTRY ORDERABLES Performing Organization Address [facility] Co de Phone Number [facility] [place] [address] * POC, GLUCOSE (06/11/2024 11:56 PM EST) Glucometer, POC 135 65 - 199 mg/dL 06/11/2024 11:56 PM EST [facility] Comment:Supplemental ranges: <140 mg/dL before meals <180 mg/dL all other times of the day. Blood CAPILLARY BLOOD / Unknown 06/11/2024 11:56 PM EST 06/11/2024 11:56 PM EST Ethel Carrillo MD POINT OF CARE TEST Abimael MAHER Performing Organization Address [facility] de Phone Number [facility] [place] [address] * (ABNORMAL) POC, GLUCOSE (06/11/2024 8:25 PM EST) Glucometer, POC 210(H) 65 - 199 mg/dL 06/11/2024 8:26 PM EST [facility] Comment:Supplemental ranges: <140 mg/dL before meals <180 mg/dL all other times of the day. Blood CAPILLARY BLOOD / Unknown 06/11/2024 8:25 PM EST 06/11/2024 8:26 PM EST Ethel Carrillo MD POINT OF CARE TEST O NIKA Performing Organization Address [facility] Co de Phone Number [facility] [place] [address] * POC, GLUCOSE (06/11/2024 4:24 PM EST) Glucometer, POC 81 65 - 199 mg/dL 06/11/2024 4:24 PM EST [facility] Comment:Supplemental ranges: <140 mg/dL before meals <180 mg/dL all other times of the day. Blood CAPILLARY BLOOD / Unknown 06/11/2024 4:24 PM EST 06/11/2024 4:25 PM EST Ethel Carrillo MD POINT OF CARE TEST O RDERAPIETER Performing Organization Address City/[facility]/ZIP Co de Phone Number [facility] [place] [address] * (ABNORMAL) POC, GLUCOSE (06/11/2024 11:08 AM EST) Glucometer, POC 233(H) 65 - 199 mg/dL 06/11/2024 11:08 AM EST [facility] Comment:Supplemental ranges: <140 mg/dL before meals <180 mg/dL all other times of the day. Blood CAPILLARY BLOOD / Unknown 06/11/2024 11:08 AM EST 06/11/2024 11:08 AM EST Ethel Carrillo MD POINT OF CARE TEST O NIKA Performing Organization Address [facility]/ZIP Co de Phone Number [facility] [place] [address] * POC, GLUCOSE (06/11/2024 7:48 AM EST) Glucometer, POC 184 65 - 199 mg/dL 06/11/2024 7:49 AM EST [facility] Comment:Supplemental ranges: <140 mg/dL before meals <180 mg/dL all other times of the day. Blood CAPILLARY BLOOD / Unknown 06/11/2024 7:48 AM EST 06/11/2024 7:49 AM EST Melida Valdes MD POINT OF CARE TEST O RDERAPIETER Performing Organization Address City/[facility]/ZIP Co de Phone Number [facility] [place] [address] * Heparin (unfractionated) Level (06/11/2024 5:31 AM EST) UF Heparin 0.55 IU/mL 06/11/2024 6:10 AM EST [facility] Comment: Heparin (anti-Xa) levels should [...] EST Shahnaz Scanlon MD HEMATOLOGY ORDERABLE S [facility] [place] [address] * POC, GLUCOSE (06/11/2024 3:57 AM EST) Glucometer, POC 132 65 - 199 mg/dL 06/11/2024 3:58 AM EST [facility] Comment:Supplemental ranges: <140 mg/dL before meals <180 mg/dL all other times of the day. Blood CAPILLARY BLOOD / Unknown 06/11/2024 3:57 AM EST 06/11/2024 3:58 AM EST Melida Valdes MD POINT OF CARE TEST O RDERABLES [facility] [place] [address] * (ABNORMAL) CBC (with Diff) (06/11/2024 2:13 AM [facility] White Blood Cell 9.91(H) 4.00 - 9.50 x10(3)/mc L 06/11/2024 2:26 AM [facility] Red Blood Cell 5.13 4.58 - 5.54 x10(6)/mc L 06/11/2024 2:26 AM [facility] Hemoglobin 15.3 13.7 - 16.5 g/dL 06/11/2024 2:26 AM [facility] Hematocrit 47.5 40.5 - 48.5 % 06/11/2024 2:26 AM [facility] Mean Cell Volume 92.6 82.9 - 93.1 fL 06/11/2024 2:26 AM [facility] Mean Cell Hemoglobin 29.8 27.5 - 32.1 pg 06/11/2024 2:26 AM [facility] Mean Cell Hemoglobin Concentration 32.2 32.0 - 35.7 g/dL 06/11/2024 2:26 AM [facility] Platelet 184 145 - 357 x10(3)/mc L 06/11/2024 2:26 AM [facility] Mean Platelet Volume 9.7 7.6 - 12.9 fL 06/11/2024 2:26 AM [facility] RDW Standard Deviation 48.0(H) 36.0 - 45.0 fL 06/11/2024 2:26 AM [facility] RDW coefficient of variation 14.0(H) 11.4 - 13.8 % 06/11/2024 2:26 AM [facility] NRBC% auto 0.0 % 06/11/2024 2:26 AM [facility] NRBC Absolute <0.01 <0.01 x10(3)/mc L 06/11/2024 2:26 AM [facility] Neutrophil % 50.3 % 06/11/2024 2:26 AM [facility] Neutrophil Absolute (ANC) - Automated 4.98 1.70 - 6.10 x10(3)/mc L 06/11/2024 2:26 AM [facility] Lymph % 33.5 % 06/11/2024 2:26 AM [facility] Lymph Absolute 3.32(H) 0.90 - 3.20 x10(3)/mc L 06/11/2024 2:26 AM [facility] Monocyte % 10.9 % 06/11/2024 2:26 AM [facility] Monocyte Absolute 1.08(H) 0.30 - 0.90 x10(3)/mc L 06/11/2024 2:26 AM [facility] Eos % 4.1 % 06/11/2024 2:26 AM [facility] Eos Absolute 0.41(H) 0.00 - 0.40 x10(3)/mc L 06/11/2024 2:26 AM [facility] Basophil % 0.7 % 06/11/2024 2:26 AM [facility] Baso Absolute 0.07 0.00 - 0.10 x10(3)/mc L 06/11/2024 2:26 AM [facility] Immature Gran % 0.5 % 2:26 AM [facility] Immature Gran Absolute 0.05(H) 0.00 - 0.04 x10(3)/mc L 06/11/2024 2:26 AM [facility] Blood VENOUS BLOOD SPECIMEN / Unknown Venipuncture / Unknown 06/11/2024 2:13 AM EST 06/11/2024 2:19 AM EST Shahnaz Scanlon MD HEMATOLOGY ORDERABLE S [facility] [place] [address] * Magnesium (06/11/2024 2:13 AM EST) Magnesium 0.83 0.69 - 1.07 mMol/L 06/11/2024 2:51 AM EST [facility] Blood VENOUS BLOOD SPECIMEN / Unknown Venipuncture / Unknown 06/11/2024 2:13 AM EST 06/11/2024 2:19 AM EST Shahnaz Scanlon MD CHEMISTRY ORDERABLES [facility] [place] [address] * (ABNORMAL) Basic Metabolic Panel (06/11/2024 2:13 AM EST) Pathologist [facility] Glucose 148 65 - 199 mg/dL 06/11/2024 2:51 AM [facility] Comment:Glucose Concentratio n >=200 mg/dL plus symptoms is consistent with Diabetes Mellitus. Blood Urea Nitrogen 24(H) 10 - 20 mg/dL 06/11/2024 2:51 AM [facility] Creatinine 1.06 0.80 - 1.50 mg/dL 06/11/2024 2:51 AM [facility] Sodium 134(L) 135 - 145 mMol/L 06/11/2024 2:51 AM [facility] Potassium 4.1 3.5 - 5.0 mMol/L 06/11/2024 2:51 AM [facility] Chloride 96(L) 98 - 107 mMol/L 06/11/2024 2:51 AM [facility] Carbon Dioxide 28 22 - 31 mMol/L 06/11/2024 2:51 AM [facility] Anion Gap 10 5 - 15 mMol/L 06/11/2024 2:51 AM [facility] Calcium 9.4 8.5 - 10.5 mg/dL 06/11/2024 2:51 AM [facility] Est Glomerular Filtration Rate - Male 77 mL/min/1. 73 m?? 06/11/2024 2:51 AM EST [facility] Comment: This patient's estimated GFR [...] Scanlon MD CHEMISTRY ORDERABLES Performing Organization Address [facility]/ZIP Co de Phone Number [facility] [place] [address] * POC, GLUCOSE (06/11/2024 12:50 AM EST) Glucometer, POC 144 65 - 199 mg/dL 06/11/2024 12:51 AM EST [facility] Comment:Supplemental ranges: <140 mg/dL before meals <180 mg/dL all other times of the day. Blood CAPILLARY BLOOD / Unknown 06/11/2024 12:50 AM EST 06/11/2024 12:51 AM EST Melida Valdes MD POINT OF CARE TEST O RDERABLES Performing Organization Address City/[facility]/ZIP Co de Phone Number [facility] [place] [address] * (ABNORMAL) POC, GLUCOSE (06/10/2024 7:22 PM EST) Glucometer, POC 236(H) 65 - 199 mg/dL 06/10/2024 7:22 PM EST [facility] Comment:Supplemental ranges: <140 mg/dL before meals <180 mg/dL all other times of the day. Blood CAPILLARY BLOOD / Unknown 06/10/2024 7:22 PM EST 06/10/2024 7:22 PM EST Melida Valdes MD POINT OF CARE TEST O RDERABLES [facility] [place] [address] * (ABNORMAL) Blood Gas, Venous (06/10/2024 5:42 PM EST) pH, Venous 7.34 7.32 - 7.42 06/10/2024 5:50 PM EST [facility] PCO2, Venous 52 38 - 58 mmHg 06/10/2024 5:50 PM [facility] PO2, Venous 24 16 - 65 mmHg 06/10/2024 5:50 PM EST [facility] Bicarbonate, Venous 27.4 22 - 31 mmol/L 06/10/2024 5:50 PM [facility] Base Excess, Venous 1.7(L) 1.9 - 4.5 mmol/L 06/10/2024 5:50 PM [facility] Hemoglobin, Venous 16.8(H) 13.7 - 16.5 g/dL 06/10/2024 5:50 PM [facility] Oxyhemoglobin, Venous 39.0 % 06/10/2024 5:50 PM EST [facility] Carboxyhemoglobin , Venous 0.3 % 06/10/2024 5:50 PM [facility] Comment: Nonsmokers: 0.5-1.5% COHB ?? Smokers: Variable ??but usually less than 10% ?? Toxic: 20-30% COHB ?? Lethal: Greater than 60% COHB Methemoglobin, Venous 0.5 <=1.5 % 06/10/2024 5:50 PM EST [facility] Sodium, Venous 137 135 - 145 mmol/L 06/10/2024 5:50 PM EST [facility] Chloride, Venous 96(L) 98 - 107 mmol/L 06/10/2024 5:50 PM [facility] Potassium, Venous 4.6 3.5 - 5.0 mmol/L 06/10/2024 5:50 PM [facility] Ionized Calcium, Venous 1.23 1.15 - 1.33 mmol/L 06/10/2024 5:50 PM [facility] Glucose, Venous 114 65 - 199 mg/dL 06/10/2024 5:50 PM [facility] Comment:Glucose Concentratio n >=200 mg/dL plus symptoms is consistent with Diabetes Mellitus. Lactate, Venous 1.1 0.5 - 2.2 mmol/L 06/10/2024 5:50 PM [facility] Blood Gas Source Venous 06/10/20 5:50 PM [facility] Blood VENOUS BLOOD SPECIMEN / Unknown Blood Gas Venous / Unknown 06/10/2024 5:42 PM EST 06/10/2024 5:47 PM EST Melida Valdes MD CHEMISTRY ORDERABLES [facility] [place] [address] * POC, GLUCOSE (06/10/2024 5:35 PM EST) Glucometer, POC 123 65 - 199 mg/dL 06/10/2024 5:35 PM [facility] Comment:Supplemental ranges: <140 mg/dL before meals <180 mg/dL all other times of the day. Blood CAPILLARY BLOOD / Unknown 06/10/2024 5:35 PM EST 06/10/2024 5:35 PM EST Melida Valdes MD POINT OF CARE TEST O RDERABLES [facility] [place] [address] * (ABNORMAL) POC, GLUCOSE (06/10/2024 11:25 AM EST) Glucometer, POC 216(H) 65 - 199 mg/dL 06/10/2024 11:25 AM EST [facility] Comment:Supplemental ranges: <140 mg/dL before meals <180 mg/dL all other times of the day. Blood CAPILLARY BLOOD / Unknown 06/10/2024 11:25 AM EST 06/10/2024 11:25 AM EST Melida Valdes MD POINT OF CARE TEST O NIKA Performing Organization Address City/[facility]/ZIP Co de Phone Number [facility] [place] [address] * (ABNORMAL) POC, GLUCOSE (06/10/2024 7:46 AM EST) Glucometer, POC 206(H) 65 - 199 mg/dL 06/10/2024 7:46 AM EST [facility] Comment:Supplemental ranges: <140 mg/dL before meals <180 mg/dL all other times of the day. Blood CAPILLARY BLOOD / Unknown 06/10/2024 7:46 AM EST 06/10/2024 7:46 AM EST Melida Valdes MD POINT OF CARE TEST O NIKA Performing Organization Address [facility] Co de Phone Number [facility] [place] [address] * POC, GLUCOSE (06/10/2024 4:23 AM EST) Glucometer, POC 154 65 - 199 mg/dL 06/10/2024 4:24 AM EST [facility] Comment:Supplemental ranges: <140 mg/dL before meals <180 mg/dL all other times of the day. Blood CAPILLARY BLOOD / Unknown 06/10/2024 4:23 AM EST 06/10/2024 4:24 AM EST Melida Valdes MD POINT OF CARE TEST O NIKA [facility] [place] [address] * (ABNORMAL) CBC (with Diff) (06/10/2024 1:55 AM EST) White Blood Cell 9.00 4.00 - 9.50 x10(3)/mc L 06/10/2024 2:14 AM [facility] Red Blood Cell 5.03 4.58 - 5.54 x10(6)/mc L 06/10/2024 2:14 AM [facility] Hemoglobin 14.9 13.7 - 16.5 g/dL 06/10/2024 2:14 AM [facility] Hematocrit 46.4 40.5 - 48.5 % 06/10/2024 2:14 AM [facility] Mean Cell Volume 92.2 82.9 - 93.1 fL 06/10/2024 2:14 AM [facility] Mean Cell Hemoglobin 29.6 27.5 - 32.1 pg 06/10/2024 2:14 AM [facility] Mean Cell Hemoglobin Concentration 32.1 32.0 - 35.7 g/dL 06/10/2024 2:14 AM [facility] Platelet 191 145 - 357 x10(3)/mc L 06/10/2024 2:14 AM [facility] Mean Platelet Volume 9.7 7.6 - 12.9 fL 06/10/2024 2:14 AM [facility] RDW Standard Deviation 47.4(H) 36.0 - 45.0 fL 06/10/2024 2:14 AM [facility] RDW coefficient of variation 14.1(H) 11.4 - 13.8 % 06/10/2024 2:14 AM [facility] NRBC% auto 0.0 % 06/10/2024 2:14 AM [facility] NRBC Absolute <0.01 <0.01 x10(3)/mc L 06/10/2024 2:14 AM [facility] Neutrophil % 48.7 % 06/10/2024 2:14 AM [facility] Neutrophil Absolute (ANC) - Automated 4.39 1.70 - 6.10 x10(3)/mc L 06/10/2024 2:14 AM [facility] Lymph % 34.9 % 06/10/2024 2:14 AM [facility] Lymph Absolute 3.14 0.90 - 3.20 x10(3)/mc L 06/10/2024 2:14 AM [facility] Monocyte % 11.2 % 06/10/2024 2:14 AM [facility] Monocyte Absolute 1.01(H) 0.30 - 0.90 x10(3)/mc L 06/10/2024 2:14 AM [facility] Eos % 3.6 % 06/10/2024 2:14 AM [facility] Eos Absolute 0.32 0.00 - 0.40 x10(3)/mc L 06/10/2024 2:14 AM [facility] Basophil % 1.0 % 06/10/2024 2:14 AM [facility] Baso Absolute 0.09 0.00 - 0.10 x10(3)/mc L 06/10/2024 2:14 AM [facility] Immature Gran % 0.6 % 2:14 AM [facility] Immature Gran Absolute 0.05(H) 0.00 - 0.04 x10(3)/mc L 06/10/2024 2:14 AM [facility] Blood VENOUS BLOOD SPECIMEN / Unknown Venipuncture / Unknown 06/10/2024 1:55 AM EST 06/10/2024 2:05 AM EST Shahnaz Scanlon MD HEMATOLOGY ORDERABLE S [facility] [place] [address] * Magnesium (06/10/2024 1:55 AM EST) Magnesium 0.83 0.69 - 1.07 mMol/L 06/10/2024 2:37 AM EST [facility] Blood VENOUS BLOOD SPECIMEN / Unknown Venipuncture / Unknown 06/10/2024 1:55 AM EST 06/10/2024 2:05 AM EST Shahnaz Scanlon MD CHEMISTRY ORDERABLES [facility] [place] [address] * (ABNORMAL) Basic Metabolic Panel (06/10/2024 1:55 AM EST) Pathologist [facility] Glucose 140 65 - 199 mg/dL 06/10/2024 2:37 AM [facility] Comment:Glucose Concentratio n >=200 mg/dL plus symptoms is consistent with Diabetes Mellitus. Blood Urea Nitrogen 24(H) 10 - 20 mg/dL 06/10/2024 2:37 AM [facility] Creatinine 1.06 0.80 - 1.50 mg/dL 06/10/2024 2:37 AM [facility] Sodium 138 135 - 145 mMol/L 06/10/2024 2:37 AM [facility] Potassium 4.1 3.5 - 5.0 mMol/L 06/10/2024 2:37 AM [facility] Chloride 100 98 - 107 mMol/L 06/10/2024 2:37 AM [facility] Carbon Dioxide 25 22 - 31 mMol/L 06/10/2024 2:37 AM [facility] Anion Gap 13 5 - 15 mMol/L 06/10/2024 2:37 AM [facility] Calcium 9.5 8.5 - 10.5 mg/dL 06/10/2024 2:37 AM [facility] Est Glomerular Filtration Rate - Male 77 mL/min/1. 73 m?? 06/10/2024 2:37 AM [facility] Comment: This patient's estimated GFR [...] AM EST Shahnaz Scanlon MD CHEMISTRY ORDERABLES [facility] [place] [address] * Heparin (unfractionated) Level (06/10/2024 1:54 AM EST) UF Heparin 0.56 IU/mL 06/10/2024 2:41 AM EST [facility] Comment: Heparin (anti-Xa) levels should [...] MD HEMATOLOGY ORDERABLE S Performing Organization Address City/[facility]/ZIP Co de Phone Number [facility] [place] [address] * POC, GLUCOSE (06/10/2024 12:05 AM EST) Glucometer, POC 125 65 - 199 mg/dL 06/10/2024 12:05 AM EST [facility] Comment:Supplemental ranges: <140 mg/dL before meals <180 mg/dL all other times of the day. Blood CAPILLARY BLOOD / Unknown 06/10/2024 12:05 AM EST 06/10/2024 12:05 AM EST Melida Valdes MD POINT OF CARE TEST O RDERAPIETER Performing Organization Address [facility]/ZIP Co de Phone Number [facility] [place] [address] * POC, GLUCOSE (06/09/2024 8:36 PM EST) Glucometer, POC 197 65 - 199 mg/dL 06/09/2024 8:36 PM EST [facility] Comment:Supplemental ranges: <140 mg/dL before meals <180 mg/dL all other times of the day. Blood CAPILLARY BLOOD / Unknown 06/09/2024 8:36 PM EST 06/09/2024 8:36 PM EST Melida Valdes MD POINT OF CARE TEST O NIKA [facility] [place] [address] * POC, GLUCOSE (06/09/2024 5:27 PM EST) Glucometer, POC 174 65 - 199 mg/dL 06/09/2024 5:28 PM EST [facility] Comment:Supplemental ranges: <140 mg/dL before meals <180 mg/dL all other times of the day. Blood CAPILLARY BLOOD / Unknown 06/09/2024 5:27 PM EST 06/09/2024 5:28 PM EST Melida Valdes MD POINT OF CARE TEST O NIKA [facility] [place] [address] * (ABNORMAL) POC, GLUCOSE (06/09/2024 11:52 AM EST) Glucometer, POC 211(H) 65 - 199 mg/dL 06/09/2024 11:52 AM EST [facility] Comment:Supplemental ranges: <140 mg/dL before meals <180 mg/dL all other times of the day. Blood CAPILLARY BLOOD / Unknown 06/09/2024 11:52 AM EST 06/09/2024 11:52 AM EST Melida Valdes MD POINT OF CARE TEST Abimael MAHER Performing Organization Address City/[facility]/ZIP Co de Phone Number [facility] [place] [address] * Potassium (06/09/2024 8:25 AM EST) Potassium 4.6 3.5 - 5.0 mMol/L 06/09/2024 10:09 AM EST [facility] Blood VENOUS BLOOD SPECIMEN / Unknown Venipuncture / Unknown 06/09/2024 8:25 AM EST 06/09/2024 8:42 AM EST Shahnaz Scanlon MD CHEMISTRY ORDERABLES Performing Organization Address City/[facility]/ZIP Co de Phone Number [facility] [place] [address] * (ABNORMAL) POC, GLUCOSE (06/09/2024 8:10 AM EST) Glucometer, POC 209(H) 65 - 199 mg/dL 06/09/2024 8:10 AM EST [facility] Comment:Supplemental ranges: <140 mg/dL before meals <180 mg/dL all other times of the day. Blood CAPILLARY BLOOD / Unknown 06/09/2024 8:10 AM EST 06/09/2024 8:11 AM EST Melida Valdes MD POINT OF CARE TEST O NIKA Performing Organization Address [facility] Co de Phone Number [facility] [place] [address] * POC, GLUCOSE (06/09/2024 4:40 AM EST) Glucometer, POC 131 65 - 199 mg/dL 06/09/2024 4:40 AM EST [facility] Comment:Supplemental ranges: <140 mg/dL before meals <180 mg/dL all other times of the day. Blood CAPILLARY BLOOD / Unknown 06/09/2024 4:40 AM EST 06/09/2024 4:41 AM EST Melida Valdes MD POINT OF CARE TEST O NIKA Performing Organization Address [facility] Co de Phone Number [facility] [place] [address] * Heparin (unfractionated) Level (06/09/2024 2:12 AM EST) UF Heparin 0.55 IU/mL 06/09/2024 2:33 AM EST [facility] Comment: Heparin (anti-Xa) levels should [...] EST Shahnaz Scanlon MD HEMATOLOGY ORDERABLE S [facility] [place] [address] * (ABNORMAL) CBC (with Diff) (06/09/2024 2:12 AM EST) White Blood Cell 9.80(H) 4.00 - 9.50 x10(3)/mc L 06/09/2024 2:44 AM [facility] Red Blood Cell 5.18 4.58 - 5.54 x10(6)/mc L 06/09/2024 2:44 AM [facility] Hemoglobin 15.5 13.7 - 16.5 g/dL 06/09/2024 2:44 AM [facility] Hematocrit 47.4 40.5 - 48.5 % 06/09/2024 2:44 AM [facility] Mean Cell Volume 91.5 82.9 - 93.1 fL 06/09/2024 2:44 AM [facility] Mean Cell Hemoglobin 29.9 27.5 - 32.1 pg 06/09/2024 2:44 AM [facility] Mean Cell Hemoglobin Concentration 32.7 32.0 - 35.7 g/dL 06/09/2024 2:44 AM [facility] Platelet 205 145 - 357 x10(3)/mc L 06/09/2024 2:44 AM [facility] Mean Platelet Volume 9.7 7.6 - 12.9 fL 06/09/2024 2:44 AM [facility] RDW Standard Deviation 47.7(H) 36.0 - 45.0 fL 06/09/2024 2:44 AM [facility] RDW coefficient of variation 14.1(H) 11.4 - 13.8 % 06/09/2024 2:44 AM [facility] NRBC% auto 0.0 % 06/09/2024 2:44 AM [facility] NRBC Absolute <0.01 <0.01 x10(3)/mc L 06/09/2024 2:44 AM [facility] Neutrophil % 53.0 % 06/09/2024 2:44 AM [facility] Neutrophil Absolute (ANC) - Automated 5.19 1.70 - 6.10 x10(3)/mc L 06/09/2024 2:44 AM [facility] Lymph % 31.6 % 06/09/2024 2:44 AM [facility] Lymph Absolute 3.10 0.90 - 3.20 x10(3)/mc L 06/09/2024 2:44 AM [facility] Monocyte % 11.0 % 06/09/2024 2:44 AM [facility] Monocyte Absolute 1.08(H) 0.30 - 0.90 x10(3)/mc L 06/09/2024 2:44 AM [facility] Eos % 2.9 % 06/09/2024 2:44 AM [facility] Eos Absolute 0.28 0.00 - 0.40 x10(3)/mc L 06/09/2024 2:44 AM [facility] Basophil % 0.9 % 06/09/2024 2:44 AM [facility] Baso Absolute 0.09 0.00 - 0.10 x10(3)/mc L 06/09/2024 2:44 AM [facility] Immature Gran % 0.6 % 2:44 AM [facility] Immature Gran Absolute 0.06(H) 0.00 - 0.04 x10(3)/mc L 06/09/2024 2:44 AM EST [facility] Blood VENOUS BLOOD SPECIMEN / Unknown Venipuncture / Unknown 06/09/2024 2:12 AM EST 06/09/2024 2:21 AM EST Shahnaz Scanlon MD HEMATOLOGY ORDERABLE S Performing Organization Address [facility]/ZIP Co de Phone Number [facility] [place] [address] * Magnesium (06/09/2024 2:12 AM EST) Magnesium 0.83 0.69 - 1.07 mMol/L 06/09/2024 2:52 AM [facility] Blood VENOUS BLOOD SPECIMEN / Unknown Venipuncture / Unknown 06/09/2024 2:12 AM EST 06/09/2024 2:22 AM EST Shahnaz Scanlon MD CHEMISTRY ORDERABLES Performing Organization Address City/[facility] Co de Phone Number [facility] [place] [address] * (ABNORMAL) Basic Metabolic Panel (06/09/2024 2:12 AM EST) Glucose 147 65 - 199 mg/dL 06/09/2024 2:52 AM [facility] Comment:Glucose Concentratio n >=200 mg/dL plus symptoms is consistent with Diabetes Mellitus. Blood Urea Nitrogen 24(H) 10 - 20 mg/dL 06/09/2024 2:52 AM [facility] Creatinine 1.11 0.80 - 1.50 mg/dL 06/09/2024 2:52 AM [facility] Sodium 136 135 - 145 mMol/L 06/09/2024 2:52 AM [facility] Potassium 3.9 3.5 - 5.0 mMol/L 06/09/2024 2:52 AM [facility] Chloride 98 98 - 107 mMol/L 06/09/2024 2:52 AM [facility] Carbon Dioxide 27 22 - 31 mMol/L 06/09/2024 2:52 AM EST [facility] Anion Gap 11 5 - 15 mMol/L 06/09/2024 2:52 AM EST [facility] Calcium 9.7 8.5 - 10.5 mg/dL 06/09/2024 2:52 AM EST [facility] Est Glomerular Filtration Rate - Male 73 mL/min/1. 73 m?? 06/09/2024 2:52 AM EST [facility] Comment: This patient's estimated GFR [...] Scanlon MD CHEMISTRY ORDERABLES Performing Organization Address City/[facility]/ZIP Co de Phone Number [facility] [place] [address] * POC, GLUCOSE (06/09/2024 12:34 AM EST) [facility] Signature Glucometer, POC 186 65 - 199 mg/dL 06/09/2024 12:34 AM EST [facility] Comment:Supplemental ranges: <140 mg/dL before meals <180 mg/dL all other times of the day. Blood CAPILLARY BLOOD / Unknown 06/09/2024 12:34 AM EST 06/09/2024 12:34 AM EST Melida Valdes MD POINT OF CARE TEST O RDERABLES [facility] [place] [address] * POC, GLUCOSE (06/08/2024 8:27 PM EST) Glucometer, POC 176 65 - 199 mg/dL 06/08/2024 8:28 PM EST [facility] Comment:Supplemental ranges: <140 mg/dL before meals <180 mg/dL all other times of the day. Blood CAPILLARY BLOOD / Unknown 06/08/2024 8:27 PM EST 06/08/2024 8:28 PM EST Melida Valdes MD POINT OF CARE TEST O NIKA Performing Organization Address [facility] de Phone Number [facility] [place] [address] * POC, GLUCOSE (06/08/2024 4:16 PM EST) Glucometer, POC 159 65 - 199 mg/dL 06/08/2024 4:16 PM EST [facility] Comment:Supplemental ranges: <140 mg/dL before meals <180 mg/dL all other times of the day. Blood CAPILLARY BLOOD / Unknown 06/08/2024 4:16 PM EST 06/08/2024 4:16 PM EST Melida Valdes MD POINT OF CARE TEST O NIKA Performing Organization Address [facility] Co de Phone Number [facility] [place] [address] * (ABNORMAL) POC, GLUCOSE (06/08/2024 12:35 PM EST) Glucometer, POC 226(H) 65 - 199 mg/dL 06/08/2024 12:35 PM EST [facility] Comment:Supplemental ranges: <140 mg/dL before meals <180 mg/dL all other times of the day. Blood CAPILLARY BLOOD / Unknown 06/08/2024 12:35 PM EST 06/08/2024 12:35 PM EST Melida Valdes MD POINT OF CARE TEST O NIKA Performing Organization Address City/[facility] Co de Phone Number [facility] [place] [address] * POC, GLUCOSE (06/08/2024 8:10 AM EST) Glucometer, POC 190 65 - 199 mg/dL 06/08/2024 8:14 AM EST [facility] Comment:Supplemental ranges: <140 mg/dL before meals <180 mg/dL all other times of the day. Blood CAPILLARY BLOOD / Unknown 06/08/2024 8:10 AM EST 06/08/2024 8:14 AM EST Melida Valdes MD POINT OF CARE TEST O NIKA Performing Organization Address [facility] de Phone Number [facility] [place] [address] * POC, GLUCOSE (06/08/2024 4:09 AM EST) Glucometer, POC 151 65 - 199 mg/dL 06/08/2024 4:10 AM EST [facility] Comment:Supplemental ranges: <140 mg/dL before meals <180 mg/dL all other times of the day. Blood CAPILLARY BLOOD / Unknown 06/08/2024 4:09 AM EST 06/08/2024 4:10 AM EST Melida Valdes MD POINT OF CARE TEST O NIKA Performing Organization Address City/[facility] Co de Phone Number [facility] [place] [address] * Heparin (unfractionated) Level (06/08/2024 3:21 AM EST) UF Heparin 0.46 IU/mL 06/08/2024 3:41 AM EST [facility] Comment: Heparin (anti-Xa) levels should [...] MD HEMATOLOGY ORDERABLE S Performing Organization Address City/State/[facility] Co de Phone Number [facility] [place] [address] * (ABNORMAL) CBC (with Diff) (06/08/2024 3:21 AM EST) White Blood Cell 9.92(H) 4.00 - 9.50 x10(3)/mc L 06/08/2024 3:34 AM EST [facility] Red Blood Cell 5.09 4.58 - 5.54 x10(6)/mc L 06/08/2024 3:34 AM EST [facility] Hemoglobin 15.1 13.7 - 16.5 g/dL 06/08/2024 3:34 AM [facility] Hematocrit 46.7 40.5 - 48.5 % 06/08/2024 3:34 AM [facility] Mean Cell Volume 91.7 82.9 - 93.1 fL 06/08/2024 3:34 AM [facility] Mean Cell Hemoglobin 29.7 27.5 - 32.1 pg 06/08/2024 3:34 AM [facility] Mean Cell Hemoglobin Concentration 32.3 32.0 - 35.7 g/dL 06/08/2024 3:34 AM [facility] Platelet 203 145 - 357 x10(3)/mc L 06/08/2024 3:34 AM [facility] Mean Platelet Volume 9.4 7.6 - 12.9 fL 06/08/2024 3:34 AM [facility] RDW Standard Deviation 46.9(H) 36.0 - 45.0 fL 06/08/2024 3:34 AM [facility] RDW coefficient of variation 13.8 11.4 - 13.8 % 06/08/2024 3:34 AM [facility] NRBC% auto 0.0 % 06/08/2024 3:34 AM [facility] NRBC Absolute <0.01 <0.01 x10(3)/mc L 06/08/2024 3:34 AM [facility] Neutrophil % 56.8 % 06/08/2024 3:34 AM [facility] Neutrophil Absolute (ANC) - Automated 5.63 1.70 - 6.10 x10(3)/mc L 06/08/2024 3:34 AM [facility] Lymph % 27.3 % 06/08/2024 3:34 AM [facility] Lymph Absolute 2.71 0.90 - 3.20 x10(3)/mc L 06/08/2024 3:34 AM [facility] Monocyte % 11.2 % 06/08/2024 3:34 AM [facility] Monocyte Absolute 1.11(H) 0.30 - 0.90 x10(3)/mc L 06/08/2024 3:34 AM [facility] Eos % 3.4 % 06/08/2024 3:34 AM [facility] Eos Absolute 0.34 0.00 - 0.40 x10(3)/mc L 06/08/2024 3:34 AM [facility] Basophil % 0.8 % 06/08/2024 3:34 AM EST [facility] Baso Absolute 0.08 0.00 - 0.10 x10(3)/mc L 06/08/2024 3:34 AM [facility] Immature Gran % 0.5 % 3:34 AM [facility] Immature Gran Absolute 0.05(H) 0.00 - 0.04 x10(3)/mc L 06/08/2024 3:34 AM EST [facility] Blood VENOUS BLOOD SPECIMEN / Unknown Venipuncture / Unknown 06/08/2024 3:21 AM EST 06/08/2024 3:27 AM EST Shahnaz Scanlon MD HEMATOLOGY ORDERABLE S Performing Organization Address City/[facility]/ZIP Co de Phone Number [facility] [place] [address] * Magnesium (06/08/2024 3:21 AM EST) Magnesium 0.84 0.69 - 1.07 mMol/L 06/08/2024 3:59 AM [facility] Blood VENOUS BLOOD SPECIMEN / Unknown Venipuncture / Unknown 06/08/2024 3:21 AM EST 06/08/2024 3:27 AM EST Shahnaz Scanlon MD CHEMISTRY ORDERABLES [facility] [place] [address] * (ABNORMAL) Basic Metabolic Panel (06/08/2024 3:21 AM EST) Glucose 173 65 - 199 mg/dL 06/08/2024 3:59 AM [facility] Comment:Glucose Concentratio n >=200 mg/dL plus symptoms is consistent with Diabetes Mellitus. Blood Urea Nitrogen 25(H) 10 - 20 mg/dL 06/08/2024 3:59 AM [facility] Creatinine 1.09 0.80 - 1.50 mg/dL 06/08/2024 3:59 AM EST [facility] Sodium 135 135 - 145 mMol/L 06/08/2024 3:59 AM [facility] Potassium 4.2 3.5 - 5.0 mMol/L 06/08/2024 3:59 AM [facility] Chloride 98 98 - 107 mMol/L 06/08/2024 3:59 AM [facility] Carbon Dioxide 25 22 - 31 mMol/L 06/08/2024 3:59 AM [facility] Anion Gap 12 5 - 15 mMol/L 06/08/2024 3:59 AM [facility] Calcium 9.4 8.5 - 10.5 mg/dL 06/08/2024 3:59 AM [facility] Est Glomerular Filtration Rate - Male 74 mL/min/1. 73 m?? 06/08/2024 3:59 AM EST [facility] Comment: This patient's estimated GFR [...] AM EST Shahnaz Scanlon MD CHEMISTRY ORDERABLES [facility] [place] [address] * POC, GLUCOSE (06/07/2024 11:57 PM EST) Glucometer, POC 188 65 - 199 mg/dL 06/07/2024 11:57 PM EST [facility] Comment:Supplemental ranges: <140 mg/dL before meals <180 mg/dL all other times of the day. Blood CAPILLARY BLOOD / Unknown 06/07/2024 11:57 PM EST 06/07/2024 11:58 PM EST Melida Valdes MD POINT OF CARE TEST O NIKA Performing Organization Address City/[facility]/ZIP Co de Phone Number [facility] [place] [address] * POC, GLUCOSE (06/07/2024 8:05 PM EST) Glucometer, POC 118 65 - 199 mg/dL 06/07/2024 8:06 PM EST [facility] Comment:Supplemental ranges: <140 mg/dL before meals <180 mg/dL all other times of the day. Blood CAPILLARY BLOOD / Unknown 06/07/2024 8:05 PM EST 06/07/2024 8:06 PM EST Melida Valdes MD POINT OF CARE TEST O NIKA Performing Organization Address [facility] Co de Phone Number [facility] [place] [address] * Potassium (06/07/2024 5:22 PM EST) Potassium 4.6 3.5 - 5.0 mMol/L 06/07/2024 5:59 PM EST [facility] Blood VENOUS BLOOD SPECIMEN / Unknown Venipuncture / Unknown 06/07/2024 5:22 PM EST 06/07/2024 5:26 PM EST Shahnaz Scanlon MD CHEMISTRY ORDERABLES Performing Organization Address City/[facility] Co de Phone Number [facility] [place] [address] * POC, GLUCOSE (06/07/2024 4:31 PM EST) Glucometer, POC 174 65 - 199 mg/dL 06/07/2024 4:34 PM EST [facility] Comment:Supplemental ranges: <140 mg/dL before meals <180 mg/dL all other times of the day. Blood CAPILLARY BLOOD / Unknown 06/07/2024 4:31 PM EST 06/07/2024 4:34 PM EST Melida Valdes MD POINT OF CARE TEST O RDERABLES [facility] [place] [address] * MRI Cardiac Morphology Function wwo Contrast (06/07/2024 1:10 PM EST) Pathologist [employer] WORKSTATION ID [id number] DH RAD Anatomical Region Laterality Modality Magnetic [...] - Mildly dilated left ventricle size with [id number] decreased LV systolic function. ??LV ejection fraction [...] have questions please contact the health healthcare account manager that requested your imaging first. ? Electronically signed by: Kriss Alonzo MD, [facility] ([phone]), at 06/07/2024 2:41 PM Narrative 06/07/2024 2:41 [...] VENTRICLE: Mildly dilated left ventricle size with tyvjdhjx-ai-isvjskef decreased LV systolic function. ??LV ejection fraction [...] VENTRICLE: Mildly dilated left ventricle size with xhdcpnex-ci-ipcuudxm decreasedLV systolic function. LV ejection fraction is [...] - Mildly dilated left ventricle size with emxjkflp-pg-dvlgwihf decreasedLV systolic function. LV ejection fraction is [...] who have questions please contactthe health healthcare account manager that requested your imaging first. Electronically signed by: Kriss Alonzo MD, [facility]([phone]), at 06/07/2024 2:41 PM Delroy Fofana MD [facility] MRI ORDERABLES * (ABNORMAL) POC, GLUCOSE (06/07/2024 11:05 AM EST) Glucometer, POC 221(H) 65 - 199 mg/dL 06/07/2024 11:06 AM EST [facility] Comment:Supplemental ranges: <140 mg/dL before meals <180 mg/dL all other times of the day. Blood CAPILLARY BLOOD / Unknown 06/07/2024 11:05 AM EST 06/07/2024 11:06 AM EST Melida Valdes MD POINT OF CARE TEST O RDERABLES [facility] [place] [address] * (ABNORMAL) POC, GLUCOSE (06/07/2024 11:03 AM EST) Glucometer, POC 250(H) 65 - 199 mg/dL 06/07/2024 11:04 AM EST [facility] Comment:Supplemental ranges: <140 mg/dL before meals <180 mg/dL all other times of the day. Blood CAPILLARY BLOOD / Unknown 06/07/2024 11:03 AM EST 06/07/2024 11:04 AM EST Melida Valdes MD POINT OF CARE TEST O RDERABLES [facility] [place] [address] * Potassium (06/07/2024 9:44 AM EST) Potassium 4.7 3.5 - 5.0 mMol/L 06/07/2024 10:23 AM EST [facility] Blood VENOUS BLOOD SPECIMEN / Unknown Venipuncture / Unknown 06/07/2024 9:44 AM EST 06/07/2024 9:57 AM EST Shahnaz Scanlon MD CHEMISTRY ORDERABLES [facility] [place] [address] * POC, GLUCOSE (06/07/2024 7:45 AM EST) Glucometer, POC 175 65 - 199 mg/dL 06/07/2024 7:45 AM EST [facility] Comment:Supplemental ranges: <140 mg/dL before meals <180 mg/dL all other times of the day. Blood CAPILLARY BLOOD / Unknown 06/07/2024 7:45 AM EST 06/07/2024 7:46 AM EST Melida Valdes MD POINT OF CARE TEST O RDERABLES [facility] [place] [address] * XR Chest PA & Lateral (Generic) (06/07/2024 7:03 AM EST) WORKSTATION ID [id number] RAD Anatomical Region Laterality Modality Chest N/A [...] have questions please contact the health healthcare account manager that requested your imaging first. ? Electronically signed by: Stuart Aponte MD, [facility] ??([phone]), at 06/07/2024 10:45 AM Narrative 06/07/2024 10:45 [...] who have questions please contactthe health healthcare account manager that requested your imaging first. Electronically signed by: Stuart Aponte MD, [facility]([phone]), at 06/07/2024 10:45 AM Shahnaz Scanlon MD IMG DX ORDERABLES * POC, GLUCOSE (06/07/2024 4:25 AM EST) [facility] Signature Glucometer, POC 127 65 - 199 mg/dL 06/07/2024 4:26 AM EST [facility] Comment:Supplemental ranges: <140 mg/dL before meals <180 mg/dL all other times of the day. Blood CAPILLARY BLOOD / Unknown 06/07/2024 4:25 AM EST 06/07/2024 4:26 AM EST Melida Valdes MD POINT OF CARE TEST O RDERABLES Performing Organization Address [facility]/ZIP Co de Phone Number [facility] [place] [address] * Heparin (unfractionated) Level (06/07/2024 2:41 AM EST) UF Heparin 0.45 IU/mL 06/07/2024 3:03 AM EST [facility] Comment: Heparin (anti-Xa) levels should [...] EST Shahnaz Scanlon MD HEMATOLOGY ORDERABLE S [facility] [place] [address] * (ABNORMAL) CBC (with Diff) (06/07/2024 2:41 AM EST) White Blood Cell 10.06(H) 4.00 - 9.50 x10(3)/mc L 06/07/2024 2:58 AM EST [facility] Red Blood Cell 5.02 4.58 - 5.54 x10(6)/mc L 06/07/2024 2:58 AM EST [facility] Hemoglobin 14.8 13.7 - 16.5 g/dL 06/07/2024 2:58 AM [facility] Hematocrit 46.2 40.5 - 48.5 % 06/07/2024 2:58 AM [facility] Mean Cell Volume 92.0 82.9 - 93.1 fL 06/07/2024 2:58 AM [facility] Mean Cell Hemoglobin 29.5 27.5 - 32.1 pg 06/07/2024 2:58 AM [facility] Mean Cell Hemoglobin Concentration 32.0 32.0 - 35.7 g/dL 06/07/2024 2:58 AM [facility] Platelet 202 145 - 357 x10(3)/mc L 06/07/2024 2:58 AM [facility] Mean Platelet Volume 9.6 7.6 - 12.9 fL 06/07/2024 2:58 AM [facility] RDW Standard Deviation 46.3(H) 36.0 - 45.0 fL 06/07/2024 2:58 AM [facility] RDW coefficient of variation 13.8 11.4 - 13.8 % 06/07/2024 2:58 AM [facility] NRBC% auto 0.0 % 06/07/2024 2:58 AM [facility] NRBC Absolute <0.01 <0.01 x10(3)/mc L 06/07/2024 2:58 AM [facility] Neutrophil % 55.9 % 06/07/2024 2:58 AM [facility] Neutrophil Absolute (ANC) - Automated 5.62 1.70 - 6.10 x10(3)/mc L 06/07/2024 2:58 AM [facility] Lymph % 28.3 % 06/07/2024 2:58 AM [facility] Lymph Absolute 2.85 0.90 - 3.20 x10(3)/mc L 06/07/2024 2:58 AM [facility] Monocyte % 10.8 % 06/07/2024 2:58 AM [facility] Monocyte Absolute 1.09(H) 0.30 - 0.90 x10(3)/mc L 06/07/2024 2:58 AM [facility] Eos % 3.6 % 06/07/2024 2:58 AM [facility] Eos Absolute 0.36 0.00 - 0.40 x10(3)/mc L 06/07/2024 2:58 AM [facility] Basophil % 0.8 % 06/07/2024 2:58 AM [facility] Baso Absolute 0.08 0.00 - 0.10 x10(3)/mc L 06/07/2024 2:58 AM [facility] Immature Gran % 0.6 % 2:58 AM [facility] Immature Gran Absolute 0.06(H) 0.00 - 0.04 x10(3)/mc L 06/07/2024 2:58 AM [facility] Blood VENOUS BLOOD SPECIMEN / Unknown Venipuncture / Unknown 06/07/2024 2:41 AM EST 06/07/2024 2:52 AM EST Shahnaz Scanlon MD HEMATOLOGY ORDERABLE S [facility] [place] [address] * Magnesium (06/07/2024 2:41 AM EST) Magnesium 0.92 0.69 - 1.07 mMol/L 06/07/2024 3:25 AM [facility] Blood VENOUS BLOOD SPECIMEN / Unknown Venipuncture / Unknown 06/07/2024 2:41 AM EST 06/07/2024 2:51 AM EST hSahnaz Scanlon MD CHEMISTRY ORDERABLES [facility] [place] [address] * (ABNORMAL) Basic Metabolic Panel (06/07/2024 2:41 AM EST) Glucose 140 65 - 199 mg/dL 06/07/2024 3:25 AM [facility] Comment:Glucose Concentratio n >=200 mg/dL plus symptoms is consistent with Diabetes Mellitus. Blood Urea Nitrogen 26(H) 10 - 20 mg/dL 06/07/2024 3:25 AM [facility] Creatinine 1.06 0.80 - 1.50 mg/dL 06/07/2024 3:25 AM [facility] Sodium 136 135 - 145 mMol/L 06/07/2024 3:25 AM [facility] Potassium 3.8 3.5 - 5.0 mMol/L 06/07/2024 3:25 AM [facility] Chloride 98 98 - 107 mMol/L 06/07/2024 3:25 AM [facility] Carbon Dioxide 28 22 - 31 mMol/L 06/07/2024 3:25 AM [facility] Anion Gap 10 5 - 15 mMol/L 06/07/2024 3:25 AM [facility] Calcium 9.4 8.5 - 10.5 mg/dL 06/07/2024 3:25 AM [facility] Est Glomerular Filtration Rate - Male 77 mL/min/1. 73 m?? 06/07/2024 3:25 AM [facility] Comment: This patient's estimated GFR [...] Scanlon MD CHEMISTRY ORDERABLES Performing Organization Address City/[facility]/ZIP Co de Phone Number [facility] [place] [address] * POC, GLUCOSE (06/07/2024 12:08 AM EST) Glucometer, POC 182 65 - 199 mg/dL 06/07/2024 12:09 AM EST [facility] Comment:Supplemental ranges: <140 mg/dL before meals <180 mg/dL all other times of the day. Blood CAPILLARY BLOOD / Unknown 06/07/2024 12:08 AM EST 06/07/2024 12:09 AM EST Melida Valdes MD POINT OF CARE TEST O NIKA Performing Organization Address [facility] Co de Phone Number [facility] [place] [address] * POC, GLUCOSE (06/06/2024 8:18 PM EST) Glucometer, POC 143 65 - 199 mg/dL 06/06/2024 8:19 PM EST [facility] Comment:Supplemental ranges: <140 mg/dL before meals <180 mg/dL all other times of the day. Blood CAPILLARY BLOOD / Unknown 06/06/2024 8:18 PM EST 06/06/2024 8:19 PM EST Melida Valdes MD POINT OF CARE TEST O NIKA Performing Organization Address City/[facility]/ZIP Co de Phone Number [facility] [place] [address] * POC, GLUCOSE (06/06/2024 3:39 PM EST) Glucometer, POC 147 65 - 199 mg/dL 06/06/2024 3:40 PM EST [facility] Comment:Supplemental ranges: <140 mg/dL before meals <180 mg/dL all other times of the day. Blood CAPILLARY BLOOD / Unknown 06/06/2024 3:39 PM EST 06/06/2024 3:40 PM EST Melida Valdes MD POINT OF CARE TEST O NIKA Performing Organization Address City/[facility]/ZIP Co de Phone Number [facility] [place] [address] * Potassium (06/06/2024 2:37 PM EST) Potassium 4.3 3.5 - 5.0 mMol/L 06/06/2024 3:01 PM EST [facility] Blood VENOUS BLOOD SPECIMEN / Unknown Venipuncture / Unknown 06/06/2024 2:37 PM EST 06/06/2024 2:42 PM EST Shahnaz Scanlon MD CHEMISTRY ORDERABLES Performing Organization Address [facility] Co de Phone Number [facility] [place] [address] * (ABNORMAL) POC, GLUCOSE (06/06/2024 1:39 PM EST) Glucometer, POC 317(H) 65 - 199 mg/dL 06/06/2024 1:40 PM EST [facility] Comment:Supplemental ranges: <140 mg/dL before meals <180 mg/dL all other times of the day. Blood CAPILLARY BLOOD / Unknown 06/06/2024 1:39 PM EST 06/06/2024 1:41 PM EST Melida Valdes MD POINT OF CARE TEST O NIKA Performing Organization Address City/[facility]/ZIP Co de Phone Number [facility] [place] [address] * (ABNORMAL) POC, GLUCOSE (06/06/2024 11:34 AM EST) Glucometer, POC 264(H) 65 - 199 mg/dL 06/06/2024 11:35 AM EST [facility] Comment:Supplemental ranges: <140 mg/dL before meals <180 mg/dL all other times of the day. Blood CAPILLARY BLOOD / Unknown 06/06/2024 11:34 AM EST 06/06/2024 11:35 AM EST Melida Valdes MD POINT OF CARE TEST O RDBECKIE Performing Organization Address City/[facility] Co de Phone Number [facility] [place] [address] * Potassium (06/06/2024 10:17 AM EST) Potassium 4.3 3.5 - 5.0 mMol/L 06/06/2024 10:46 AM EST [facility] Blood VENOUS BLOOD SPECIMEN / Unknown Venipuncture / Unknown 06/06/2024 10:17 AM EST 06/06/2024 10:22 AM EST Shahnaz Scanlon MD CHEMISTRY ORDERABLES Performing Organization Address [facility] Co de Phone Number [facility] [place] [address] * POC, GLUCOSE (06/06/2024 7:57 AM EST) Glucometer, POC 195 65 - 199 mg/dL 06/06/2024 8:03 AM EST [facility] Comment:Supplemental ranges: <140 mg/dL before meals <180 mg/dL all other times of the day. Blood CAPILLARY BLOOD / Unknown 06/06/2024 7:57 AM EST 06/06/2024 8:03 AM EST Melida Valdes MD POINT OF CARE TEST O RDERAPIETER Performing Organization Address City/[facility] Co de Phone Number [facility] [place] [address] * POC, GLUCOSE (06/06/2024 6:53 AM EST) Glucometer, POC 187 65 - 199 mg/dL 06/06/2024 6:53 AM EST [facility] Comment:Supplemental ranges: <140 mg/dL before meals <180 mg/dL all other times of the day. Blood CAPILLARY BLOOD / Unknown 06/06/2024 6:53 AM EST 06/06/2024 6:54 AM EST Melida Valdes MD POINT OF CARE TEST O RDERABLES Performing Organization Address City/[facility]/ZIP Co de Phone Number [facility] [place] [address] * (ABNORMAL) Hemoglobin A1c (06/06/2024 3:33 AM EST) [facility] Hemoglobin A1c 7.1(H) 4.3 - 5.6 % 06/06/2024 1:01 PM EST [facility] Comment: Per ADA guidelines, without [...] blood cell turnover may not be sales and merchandising representative of glycemic control. Reference Interval: 4.3 - 5.6% 5.7 - 6.4%: Consistent with prediabetes >=6.5%: Consistent with diagnosis of diabetes mellitus Estimated Average Glucose 157 mg/dL 06/06/2024 1:01 PM EST [facility] Blood VENOUS BLOOD SPECIMEN / Unknown Venipuncture / Unknown 06/06/2024 3:33 AM EST 06/06/2024 3:48 AM EST Alejandra Baumann APRN CHEMISTRY ORDERAB LES Performing Organization Address City/[facility]/ZIP Co de Phone Number [facility] [place] [address] * Heparin (unfractionated) Level (06/06/2024 3:33 AM EST) Pathologist [facility] UF Heparin 0.36 IU/mL 06/06/2024 3:59 AM EST [facility] Comment: Heparin (anti-Xa) levels should [...] MD HEMATOLOGY ORDERABLE S Performing Organization Address City/State/[facility] Co de Phone Number [facility] [place] [address] * (ABNORMAL) CBC (with Diff) (06/06/2024 3:33 AM EST) Pathologist [facility] White Blood Cell 9.81(H) 4.00 - 9.50 x10(3)/mc L 06/06/2024 3:54 AM EST [facility] Red Blood Cell 4.91 4.58 - 5.54 x10(6)/mc L 06/06/2024 3:54 AM EST [facility] Hemoglobin 14.6 13.7 - 16.5 g/dL 06/06/2024 3:54 AM EST [facility] Hematocrit 45.4 40.5 - 48.5 % 06/06/2024 3:54 AM [facility] Mean Cell Volume 92.5 82.9 - 93.1 fL 06/06/2024 3:54 AM [facility] Mean Cell Hemoglobin 29.7 27.5 - 32.1 pg 06/06/2024 3:54 AM [facility] Mean Cell Hemoglobin Concentration 32.2 32.0 - 35.7 g/dL 06/06/2024 3:54 AM [facility] Platelet 199 145 - 357 x10(3)/mc L 06/06/2024 3:54 AM [facility] Mean Platelet Volume 9.5 7.6 - 12.9 fL 06/06/2024 3:54 AM [facility] RDW Standard Deviation 47.2(H) 36.0 - 45.0 fL 06/06/2024 3:54 AM [facility] RDW coefficient of variation 13.9(H) 11.4 - 13.8 % 06/06/2024 3:54 AM [facility] NRBC% auto 0.0 % 06/06/2024 3:54 AM [facility] NRBC Absolute <0.01 <0.01 x10(3)/mc L 06/06/2024 3:54 AM [facility] Neutrophil % 56.8 % 06/06/2024 3:54 AM [facility] Neutrophil Absolute (ANC) - Automated 5.57 1.70 - 6.10 x10(3)/mc L 06/06/2024 3:54 AM [facility] Lymph % 27.6 % 06/06/2024 3:54 AM [facility] Lymph Absolute 2.71 0.90 - 3.20 x10(3)/mc L 06/06/2024 3:54 AM [facility] Monocyte % 11.1 % 06/06/2024 3:54 AM [facility] Monocyte Absolute 1.09(H) 0.30 - 0.90 x10(3)/mc L 06/06/2024 3:54 AM EST [facility] Eos % 3.0 % 06/06/2024 3:54 AM EST [facility] Eos Absolute 0.29 0.00 - 0.40 x10(3)/mc L 06/06/2024 3:54 AM EST [facility] Basophil % 0.9 % 06/06/2024 3:54 AM [facility] Baso Absolute 0.09 0.00 - 0.10 x10(3)/mc L 06/06/2024 3:54 AM [facility] Immature Gran % 0.6 % 3:54 AM [facility] Immature Gran Absolute 0.06(H) 0.00 - 0.04 x10(3)/mc L 06/06/2024 3:54 AM [facility] Blood VENOUS BLOOD SPECIMEN / Unknown Venipuncture / Unknown 06/06/2024 3:33 AM EST 06/06/2024 3:48 AM EST Shahnaz Scanlon MD HEMATOLOGY ORDERABLE S [facility] [place] [address] * Magnesium (06/06/2024 3:33 AM EST) Magnesium 0.92 0.69 - 1.07 mMol/L 06/06/2024 4:17 AM EST [facility] Blood VENOUS BLOOD SPECIMEN / Unknown Venipuncture / Unknown 06/06/2024 3:33 AM EST 06/06/2024 3:47 AM EST Shahnaz Scanlon MD CHEMISTRY ORDERABLES [facility] [place] [address] * (ABNORMAL) Basic Metabolic Panel (06/06/2024 3:33 AM EST) Glucose 190 65 - 199 mg/dL 06/06/2024 4:17 AM [facility] Comment:Glucose Concentratio n >=200 mg/dL plus symptoms is consistent with Diabetes Mellitus. Blood Urea Nitrogen 27(H) 10 - 20 mg/dL 06/06/2024 4:17 AM [facility] Creatinine 1.12 0.80 - 1.50 mg/dL 06/06/2024 4:17 AM [facility] Sodium 136 135 - 145 mMol/L 06/06/2024 4:17 AM [facility] Potassium 4.0 3.5 - 5.0 mMol/L 06/06/2024 4:17 AM [facility] Chloride 97(L) 98 - 107 mMol/L 06/06/2024 4:17 AM [facility] Carbon Dioxide 26 22 - 31 mMol/L 06/06/2024 4:17 AM [facility] Anion Gap 13 5 - 15 mMol/L 06/06/2024 4:17 AM [facility] Calcium 9.1 8.5 - 10.5 mg/dL 06/06/2024 4:17 AM [facility] Est Glomerular Filtration Rate - Male 72 mL/min/1. 73 m?? 06/06/2024 4:17 AM [facility] Comment: This patient's estimated GFR [...] AM EST Shahnaz Scanlon MD CHEMISTRY ORDERABLES [facility] [place] [address] * (ABNORMAL) POC, GLUCOSE (06/05/2024 10:31 PM EDT) Glucometer, POC 238(H) 65 - 199 mg/dL 06/05/2024 10:31 PM EDT [facility] Comment:Supplemental ranges: <140 mg/dL before meals <180 mg/dL all other times of the day. Blood CAPILLARY BLOOD / Unknown 06/05/2024 10:31 PM EDT 06/05/2024 10:31 PM EDT Melida Valdes MD POINT OF CARE TEST O RDERABLES [facility] [place] [address] * (ABNORMAL) POC, GLUCOSE (06/05/2024 4:22 PM EDT) Glucometer, POC 205(H) 65 - 199 mg/dL 06/05/2024 4:22 PM EDT [facility] Comment:Supplemental ranges: <140 mg/dL before meals <180 mg/dL all other times of the day. Blood CAPILLARY BLOOD / Unknown 06/05/2024 4:22 PM EDT 06/05/2024 4:23 PM EDT Melida Valdes MD POINT OF CARE TEST O RDERAPIETER [facility] [place] [address] * (ABNORMAL) POC, GLUCOSE (06/05/2024 11:34 AM EDT) Glucometer, POC 211(H) 65 - 199 mg/dL 06/05/2024 11:34 AM EDT [facility] Comment:Supplemental ranges: <140 mg/dL before meals <180 mg/dL all other times of the day. Blood CAPILLARY BLOOD / Unknown 06/05/2024 11:34 AM EDT 06/05/2024 11:34 AM EDT Melida Valdes MD POINT OF CARE TEST O NIKA Performing Organization Address City/[facility] Co de Phone Number [facility] [place] [address] * Potassium (06/05/2024 9:04 AM EDT) Potassium 4.3 3.5 - 5.0 mMol/L 06/05/2024 9:50 AM EDT [facility] Blood VENOUS BLOOD SPECIMEN / Unknown Venipuncture / Unknown 06/05/2024 9:04 AM EDT 06/05/2024 9:21 AM EDT Shahnaz Scanlon MD CHEMISTRY ORDERABLES Performing Organization Address [facility] Co de Phone Number [facility] [place] [address] * POC, GLUCOSE (06/05/2024 7:27 AM EDT) Glucometer, POC 166 65 - 199 mg/dL 06/05/2024 7:27 AM EDT [facility] Comment:Supplemental ranges: <140 mg/dL before meals <180 mg/dL all other times of the day. Blood CAPILLARY BLOOD / Unknown 06/05/2024 7:27 AM EDT 06/05/2024 7:27 AM EDT Melida Valdes MD POINT OF CARE TEST O NIKA Performing Organization Address [facility] Co de Phone Number [facility] [place] [address] * Heparin (unfractionated) Level (06/05/2024 3:44 AM EDT) UF Heparin 0.44 IU/mL 06/05/2024 4:07 AM EDT [facility] Comment: Heparin (anti-Xa) levels should [...] EDT Shahnaz Scanlon MD HEMATOLOGY ORDERABLE S [facility] [place] [address] * (ABNORMAL) CBC (with Diff) (06/05/2024 3:44 AM EDT) White Blood Cell 10.83(H) 4.00 - 9.50 x10(3)/mc L 06/05/2024 3:56 AM EDT [facility] Red Blood Cell 5.07 4.58 - 5.54 x10(6)/mc L 06/05/2024 3:56 AM EDT [facility] Hemoglobin 15.3 13.7 - 16.5 g/dL 06/05/2024 3:56 AM EDT [facility] Hematocrit 46.8 40.5 - 48.5 % 06/05/2024 3:56 AM EDT [facility] Mean Cell Volume 92.3 82.9 - 93.1 fL 06/05/2024 3:56 AM [facility] Mean Cell Hemoglobin 30.2 27.5 - 32.1 pg 06/05/2024 3:56 AM [facility] Mean Cell Hemoglobin Concentration 32.7 32.0 - 35.7 g/dL 06/05/2024 3:56 AM [facility] Platelet 219 145 - 357 x10(3)/mc L 06/05/2024 3:56 AM [facility] Mean Platelet Volume 9.4 7.6 - 12.9 fL 06/05/2024 3:56 AM [facility] RDW Standard Deviation 46.7(H) 36.0 - 45.0 fL 06/05/2024 3:56 AM [facility] RDW coefficient of variation 13.9(H) 11.4 - 13.8 % 06/05/2024 3:56 AM [facility] NRBC% auto 0.0 % 06/05/2024 3:56 AM [facility] NRBC Absolute <0.01 <0.01 x10(3)/mc L 06/05/2024 3:56 AM [facility] Neutrophil % 61.5 % 06/05/2024 3:56 AM [facility] Neutrophil Absolute (ANC) - Automated 6.65(H) 1.70 - 6.10 x10(3)/mc L 06/05/2024 3:56 AM [facility] Lymph % 24.0 % 06/05/2024 3:56 AM [facility] Lymph Absolute 2.60 0.90 - 3.20 x10(3)/mc L 06/05/2024 3:56 AM [facility] Monocyte % 10.9 % 06/05/2024 3:56 AM [facility] Monocyte Absolute 1.18(H) 0.30 - 0.90 x10(3)/mc L 06/05/2024 3:56 AM [facility] Eos % 2.2 % 06/05/2024 3:56 AM EDT [facility] Eos Absolute 0.24 0.00 - 0.40 x10(3)/mc L 06/05/2024 3:56 AM EDT [facility] Basophil % 0.8 % 06/05/2024 3:56 AM EDT [facility] Baso Absolute 0.09 0.00 - 0.10 x10(3)/mc L 06/05/2024 3:56 AM EDT [facility] Immature Gran % 0.6 % 3:56 AM EDT [facility] Immature Gran Absolute 0.07(H) 0.00 - 0.04 x10(3)/mc L 06/05/2024 3:56 AM EDT [facility] Blood VENOUS BLOOD SPECIMEN / Unknown Venipuncture / Unknown 06/05/2024 3:44 AM EDT 06/05/2024 3:50 AM EDT Shahnaz Scanlon MD HEMATOLOGY ORDERABLE S [facility] [place] [address] * Magnesium (06/05/2024 3:44 AM EDT) Magnesium 0.92 0.69 - 1.07 mMol/L 06/05/2024 4:20 AM EDT [facility] Blood VENOUS BLOOD SPECIMEN / Unknown Venipuncture / Unknown 06/05/2024 3:44 AM EDT 06/05/2024 3:50 AM EDT Shahnaz Scanlon MD CHEMISTRY ORDERABLES [facility] [place] [address] * (ABNORMAL) Basic Metabolic Panel (06/05/2024 3:44 AM EDT) Glucose 155 65 - 199 mg/dL 06/05/2024 4:20 AM [facility] Comment:Glucose Concentratio n >=200 mg/dL plus symptoms is consistent with Diabetes Mellitus. Blood Urea Nitrogen 25(H) 10 - 20 mg/dL 06/05/2024 4:20 AM [facility] Creatinine 1.16 0.80 - 1.50 mg/dL 06/05/2024 4:20 AM [facility] Sodium 136 135 - 145 mMol/L 06/05/2024 4:20 AM [facility] Potassium 3.9 3.5 - 5.0 mMol/L 06/05/2024 4:20 AM [facility] Chloride 95(L) 98 - 107 mMol/L 06/05/2024 4:20 AM [facility] Carbon Dioxide 29 22 - 31 mMol/L 06/05/2024 4:20 AM [facility] Anion Gap 12 5 - 15 mMol/L 06/05/2024 4:20 AM [facility] Calcium 9.2 8.5 - 10.5 mg/dL 06/05/2024 4:20 AM [facility] Est Glomerular Filtration Rate - Male 69 mL/min/1. 73 m?? 06/05/2024 4:20 AM [facility] Comment: This patient's estimated GFR [...] Scanlon MD CHEMISTRY ORDERABLES Performing Organization Address City/[facility]/ZIP Co de Phone Number [facility] [place] [address] * Potassium (06/04/2024 10:34 PM EDT) Potassium 3.7 3.5 - 5.0 mMol/L 06/04/2024 11:03 PM EDT [facility] Blood VENOUS BLOOD SPECIMEN / Unknown Venipuncture / Unknown 06/04/2024 10:34 PM EDT 06/04/2024 10:39 PM EDT Shahnaz Scanlon MD CHEMISTRY ORDERABLES Performing Organization Address [facility] Co de Phone Number [facility] [place] [address] * POC, GLUCOSE (06/04/2024 7:43 PM EDT) Glucometer, POC 175 65 - 199 mg/dL 06/04/2024 7:43 PM EDT [facility] Comment:Supplemental ranges: <140 mg/dL before meals <180 mg/dL all other times of the day. Blood CAPILLARY BLOOD / Unknown 06/04/2024 7:43 PM EDT 06/04/2024 7:43 PM EDT Melida Valdes MD POINT OF CARE TEST O RDERABLES [facility] [place] [address] * Potassium (06/04/2024 4:35 PM EDT) Potassium 4.0 3.5 - 5.0 mMol/L 06/04/2024 5:32 PM EDT [facility] Blood VENOUS BLOOD SPECIMEN / Unknown Venipuncture / Unknown 06/04/2024 4:35 PM EDT 06/04/2024 4:40 PM EDT Shahnaz Scanlon MD CHEMISTRY ORDERABLES Performing Organization Address [facility] Co de Phone Number [facility] [place] [address] * POC, GLUCOSE (06/04/2024 3:26 PM EDT) Glucometer, POC 154 65 - 199 mg/dL 06/04/2024 3:26 PM EDT [facility] Comment:Supplemental ranges: <140 mg/dL before meals <180 mg/dL all other times of the day. Blood CAPILLARY BLOOD / Unknown 06/04/2024 3:26 PM EDT 06/04/2024 3:27 PM EDT Melida Valdes MD POINT OF CARE TEST O RDERABLES Performing Organization Address [facility] Co de Phone Number [facility] [place] [address] * POC, GLUCOSE (06/04/2024 11:09 AM EDT) Glucometer, POC 188 65 - 199 mg/dL 06/04/2024 11:09 AM EDT [facility] Comment:Supplemental ranges: <140 mg/dL before meals <180 mg/dL all other times of the day. Blood CAPILLARY BLOOD / Unknown 06/04/2024 11:09 AM EDT 06/04/2024 11:09 AM EDT Delroy Fofana MD POINT OF CARE TEST ORDERABLES Performing Organization Address [facility] Co de Phone Number [facility] [place] [address] * Heparin (unfractionated) Level (06/04/2024 10:41 AM EDT) UF Heparin 0.43 IU/mL 06/04/2024 11:06 AM EDT [facility] Comment: Heparin (anti-Xa) levels should [...] EDT Shahnaz Scanlon MD HEMATOLOGY ORDERABLE S [facility] [place] [address] * Potassium (06/04/2024 10:41 AM EDT) Pathologist [facility] Potassium 4.0 3.5 - 5.0 mMol/L 06/04/2024 11:11 AM EDT [facility] Blood VENOUS BLOOD SPECIMEN / Unknown Venipuncture / Unknown 06/04/2024 10:41 AM EDT 06/04/2024 10:46 AM EDT Shahnaz Scanlon MD CHEMISTRY ORDERABLES Performing Organization Address City/[facility]/ZIP Co de Phone Number [facility] [place] [address] * POC, GLUCOSE (06/04/2024 7:11 AM EDT) Glucometer, POC 182 65 - 199 mg/dL 06/04/2024 7:12 AM EDT [facility] Comment:Supplemental ranges: <140 mg/dL before meals <180 mg/dL all other times of the day. Blood CAPILLARY BLOOD / Unknown 06/04/2024 7:11 AM EDT 06/04/2024 7:12 AM EDT Delroy Fofana MD POINT OF CARE TEST ORDERABLES Performing Organization Address [facility] Co de Phone Number [facility] [place] [address] * Heparin (unfractionated) Level (06/04/2024 4:38 AM EDT) UF Heparin 0.41 IU/mL 06/04/2024 5:19 AM EDT [facility] Comment: Heparin (anti-Xa) levels should [...] MD HEMATOLOGY ORDERABLE S Performing Organization Address [facility]/ZIP Co de Phone Number [facility] [place] [address] * (ABNORMAL) CBC (with Diff) (06/04/2024 4:38 AM EDT) White Blood Cell 11.45(H) 4.00 - 9.50 x10(3)/mc L 06/04/2024 5:12 AM [facility] Red Blood Cell 5.35 4.58 - 5.54 x10(6)/mc L 06/04/2024 5:12 AM [facility] Hemoglobin 16.0 13.7 - 16.5 g/dL 06/04/2024 5:12 AM [facility] Hematocrit 49.6(H) 40.5 - 48.5 % 06/04/2024 5:12 AM [facility] Mean Cell Volume 92.7 82.9 - 93.1 fL 06/04/2024 5:12 AM [facility] Mean Cell Hemoglobin 29.9 27.5 - 32.1 pg 06/04/2024 5:12 AM [facility] Mean Cell Hemoglobin Concentration 32.3 32.0 - 35.7 g/dL 06/04/2024 5:12 AM [facility] Platelet 222 145 - 357 x10(3)/mc L 06/04/2024 5:12 AM [facility] Mean Platelet Volume 9.5 7.6 - 12.9 fL 06/04/2024 5:12 AM [facility] RDW Standard Deviation 47.6(H) 36.0 - 45.0 fL 06/04/2024 5:12 AM [facility] RDW coefficient of variation 14.1(H) 11.4 - 13.8 % 06/04/2024 5:12 AM [facility] NRBC% auto 0.0 % 06/04/2024 5:12 AM [facility] NRBC Absolute <0.01 <0.01 x10(3)/mc L 06/04/2024 5:12 AM [facility] Neutrophil % 60.3 % 06/04/2024 5:12 AM [facility] Neutrophil Absolute (ANC) - Automated 6.91(H) 1.70 - 6.10 x10(3)/mc L 06/04/2024 5:12 AM EDT [facility] Lymph % 25.1 % 06/04/2024 5:12 AM EDT [facility] Lymph Absolute 2.87 0.90 - 3.20 x10(3)/mc L 06/04/2024 5:12 AM EDT [facility] Monocyte % 10.6 % 06/04/2024 5:12 AM EDT [facility] Monocyte Absolute 1.21(H) 0.30 - 0.90 x10(3)/mc L 06/04/2024 5:12 AM EDT [facility] Eos % 2.8 % 06/04/2024 5:12 AM EDT [facility] Eos Absolute 0.32 0.00 - 0.40 x10(3)/mc L 06/04/2024 5:12 AM EDT [facility] Basophil % 0.7 % 06/04/2024 5:12 AM EDT [facility] Baso Absolute 0.08 0.00 - 0.10 x10(3)/mc L 06/04/2024 5:12 AM EDT [facility] Immature Gran % 0.5 % 5:12 AM EDT [facility] Immature Gran Absolute 0.06(H) 0.00 - 0.04 x10(3)/mc L 06/04/2024 5:12 AM EDT [facility] Blood VENOUS BLOOD SPECIMEN / Unknown Venipuncture / Unknown 06/04/2024 4:38 AM EDT 06/04/2024 5:07 AM EDT Shahnaz Scanlon MD HEMATOLOGY ORDERABLE S [facility] [place] [address] * Magnesium (06/04/2024 4:38 AM EDT) Magnesium 0.84 0.69 - 1.07 mMol/L 06/04/2024 5:35 AM EDT [facility] Blood VENOUS BLOOD SPECIMEN / Unknown Venipuncture / Unknown 06/04/2024 4:38 AM EDT 06/04/2024 5:07 AM EDT Shahnaz Scanlon MD CHEMISTRY ORDERABLES [facility] [place] [address] * (ABNORMAL) Basic Metabolic Panel (06/04/2024 4:38 AM EDT) Glucose 118 65 - 199 mg/dL 06/04/2024 5:35 AM EDT [facility] Comment:Glucose Concentratio n >=200 mg/dL plus symptoms is consistent with Diabetes Mellitus. Blood Urea Nitrogen 22(H) 10 - 20 mg/dL 06/04/2024 5:35 AM EDT [facility] Creatinine 1.22 0.80 - 1.50 mg/dL 06/04/2024 5:35 AM [facility] Sodium 137 135 - 145 mMol/L 06/04/2024 5:35 AM [facility] Potassium 3.6 3.5 - 5.0 mMol/L 06/04/2024 5:35 AM [facility] Chloride 97(L) 98 - 107 mMol/L 06/04/2024 5:35 AM EDT [facility] Carbon Dioxide 29 22 - 31 mMol/L 06/04/2024 5:35 AM EDT [facility] Anion Gap 11 5 - 15 mMol/L 06/04/2024 5:35 AM [facility] Calcium 9.0 8.5 - 10.5 mg/dL 06/04[facility]24 [facility] Est Glomerular Filtration Rate - Male 65 mL/min/1. 73 m?? 06/04/2024 5:[facility] Comment: This patient's estimated [...] AM EDT Shahnaz Scanlon MD CHEMISTRY ORDERABLES [facility] [place] [address] * Heparin (unfractionated) Level (06/03/2024 8:58 PM EDT) UF Heparin 0.27 IU/mL 06/03/2024 9:33 PM EDT [facility] Comment: Heparin (anti-Xa) levels should [...] EDT Shahnaz Scanlon MD HEMATOLOGY ORDERABLE S [facility] [place] [address] * POC, GLUCOSE (06/03/2024 8:05 PM EDT) Glucometer, POC 136 65 - 199 mg/dL 06/03/2024 8:05 PM EDT [facility] Comment:Supplemental ranges: <140 mg/dL before meals <180 mg/dL all other times of the day. Blood CAPILLARY BLOOD / Unknown 06/03/2024 8:05 PM EDT 06/03/2024 8:05 PM EDT Delroy Fofana MD POINT OF CARE TEST ORDERABLES Performing Organization Address [facility] Co de Phone Number [facility] [place] [address] * POC, GLUCOSE (06/03/2024 5:48 PM EDT) Glucometer, POC 191 65 - 199 mg/dL 06/03/2024 5:48 PM EDT [facility] Comment:Supplemental ranges: <140 mg/dL before meals <180 mg/dL all other times of the day. Blood CAPILLARY BLOOD / Unknown 06/03/2024 5:48 PM EDT 06/03/2024 5:49 PM EDT Delroy Fofana MD POINT OF CARE TEST ORDERABLES Performing Organization Address City/[facility]/ZIP Co de Phone Number [facility] [place] [address] * CT Chest wo Contrast (Generic) (06/03/2024 4:33 PM EDT) WORKSTATION ID [id number] DH RAD Anatomical Region Laterality Modality Chest Computed Tomogra phy Impressions 06/03/2024 4:47 PM EDT Cardiomegaly. Biventricular ICD leads in place. Thank you for letting us participate in the care of this patient. ??If you are a health care provider and have any questions regarding this report, please contact the number below. ??For patients who have questions please contact the health healthcare account manager that requested your imaging first. ? Electronically signed by: Stuart Aponte MD, [facility] ??([phone]), at 06/03/2024 4:47 PM Narrative 06/03/2024 4:47 [...] who have questions please contactthe health healthcare account manager that requested your imaging first. Electronically signed by: Stuart Aponte MD, [facility]([phone]), at 06/03/2024 4:47 PM Bobby Loja MD IMG CT ORDERABLES * Carotid Duplex, Bilateral (06/03/2024 2:19 PM EDT) VB Text Report Department: Vascular Surgery Lab Patient: [id number] (GEORGE MEHTA) CPT: 30708 Referring Physician: BOBBY LOJA ?? Phone: Indications: [...] Loja MD VASCULAR ORDERABLES Performing Organization Address [facility] de Phone Number [id number] * Heparin (unfractionated) Level (06/03/2024 12:48 PM EDT) UF Heparin 0.15 IU/mL 06/03/2024 1:13 PM EDT [facility] Comment: Heparin (anti-Xa) levels should [...] MD HEMATOLOGY ORDERABLE S Performing Organization Address City/[facility] Co de Phone Number [facility] [place] [address] * POC, GLUCOSE (06/03/2024 11:14 AM EDT) Glucometer, POC 166 65 - 199 mg/dL 06/03/2024 11:14 AM EDT [facility] Comment:Supplemental ranges: <140 mg/dL before meals <180 mg/dL all other times of the day. Blood CAPILLARY BLOOD / Unknown 06/03/2024 11:14 AM EDT 06/03/2024 11:14 AM EDT Delroy Fofana MD POINT OF CARE TEST ORDERABLES [facility] [place] [address] * (ABNORMAL) Troponin-T, High Sensitivity 3 Hour (06/03/2024 10:06 AM EDT) Troponin-T, High Sensitivity 266(H) <=22 ng/L 06/03/2024 10:50 AM EDT [facility] Comment: This patient's troponin T [...] troponin value can be found in the [facility] Test Catalog Troponin - https://one-.testcatalog.org/catalogs/565/files/07732 Reference: Fourth [place] Definition of Myocardial Infarction. Journal of the [place] [employer] 2018;72:1145-7681 Troponin-T, HS 3 hr delta 06/03/2024 10:50 AM EDT [facility] Comment:Delta troponin value not calculated, sample collected outside of delta calculation time limit. Blood VENOUS BLOOD SPECIMEN / Unknown IP Care Team Draw / Unknown 06/03/2024 10:06 AM EDT 06/03/2024 10:15 AM EDT Delroy Fofana MD CHEMISTRY [facility] [place] [address] * ECHO COMPLETE W CONTRAST (06/03/2024 8:46 AM EDT) Anatomical Region Laterality Modality Cardiac Other 06/03/2024 6:52 AM EDT Narrative 06/03/2024 10:32 AM EDT [address] [place] [id number] ? Echocardiogram Report Name: GEORGE MEHTA Raad ?Study Date: 06/03/2024 06:52 AM : 1955 ? Height: 168 cm ? Account: [id number] Age: 69 yrs ? Weight: 102 kg Gender: Male ?BSA: 2.1 m2 Ordering Physician: SHAHNAZ SCANLON Referring Physician: NEHAL QUINTERO Performed By: Sara Kebede RDCS Reason For Study: STEMI Exam Location: [facility]. Interpretation Summary -Left ventricular systolic [...] fellow performed study of today's date). Procedure Complete-00099. Image enhancement Optison was used for left [...] Note Jonnie Jordan MD - 06/03/2024 [address] [place] [address] Echocardiogram Report Name: GEORGE MEHTA Study Date: 406:52 AM : 1955 Height: 168 cm Account: [id number] Age: 69 yrs Weight: 102 kg Gender: Male BSA: 2.1 m2 Ordering Physician: SHAHNAZ SCANLON Referring Physician: NEHAL QUINTERO Performed By: Sara Kebede RDCS Reason For Study: STEMI Exam Location: [facility]. Interpretation Summary -Left ventricular systolic [...] a fellow performed study of's date). Procedure Complete-05339. Image enhancement Optison was used for left [...] 289(H) <=22 ng/L 06/03/2024 9:26 AM EDT [facility] Comment: This patient's troponin T [...] troponin value can be found in the [facility] Test Catalog Troponin - https://[facility].testcatalog.org/catalogs/565/files/63854 Reference: Fourth [place] Definition of Myocardial Infarction. Journal of the [place] [employer] 2018;72:5320-2750 Troponin-T, HS 1 hr delta 5 ng/L 06/03/2024 9:26 AM EDT [facility] Comment:The 1 hour Troponin T delta value is the absolute difference between the Troponin T concentrations of the initial and subsequent sample collected between 45 - 120 minutes following the initial collection. Blood VENOUS BLOOD SPECIMEN / Unknown IP Care Team Draw / Unknown 06/03/2024 8:27 AM EDT 06/03/2024 8:37 AM EDT Delroy Fofana MD CHEMISTRY ORDERABLE S [facility] [place] [address] * POC, GLUCOSE (06/03/2024 7:54 AM EDT) [facility] Signature Glucometer, POC 195 65 - 199 mg/dL 06/03/2024 7:55 AM EDT [facility] Comment:Supplemental ranges: <140 mg/dL before meals <180 mg/dL all other times of the day. Blood CAPILLARY BLOOD / Unknown 06/03/2024 7:54 AM EDT 06/03/2024 7:55 AM EDT Nuha Rojo MD POINT OF CARE TEST ORDERABLES [facility] [place] [address] * (ABNORMAL) Troponin-T, High Sensitivity (06/03/2024 7:39 AM EDT) Pathologist [facility] Troponin-T, High Sensitivity Initial 284(H) <=22 ng/L 06/03/2024 8:29 AM EDT [facility] Comment: This patient's troponin T [...] troponin value can be found in the [facility] Test Catalog Troponin - https://one-.testcatalog.org/catalogs/565/files/24703 Reference: Fourth [place] Definition of Myocardial Infarction. Journal of the [place] [employer] 2018;72:3009-7473 Blood VENOUS BLOOD SPECIMEN / Unknown IP Care Team Draw / Unknown 06/03/2024 7:39 AM EDT 06/03/2024 7:48 AM EDT Delroy Fofana MD CHEMISTRY ORDERABLE S [facility] [place] [address] * (ABNORMAL) Troponin-T, High Sensitivity 3 Hour (06/03/2024 5:11 AM EDT) Troponin-T, High Sensitivity 254(H) <=22 ng/L 06/03/2024 5:49 AM EDT [facility] Comment: This patient's troponin T [...] troponin value can be found in the [facility] Test Catalog Troponin - https://[facility]-.testcatalog.org/catalogs/565/files/04185 Reference: Fourth [place] Definition of Myocardial Infarction. Journal of the [place] [employer] 2018;72:9734-2197 Troponin-T, HS 3 hr delta 46 ng/L 06/03/2024 5:49 AM EDT [facility] Comment:The 3 hour Troponin T delta value is the absolute difference between the Troponin T concentrations of the initial and subsequent sample collected between 2 h: 45 min and 6 h following the initial collection Blood VENOUS BLOOD SPECIMEN / Unknown IP Care Team Draw / Unknown 06/03/2024 5:11 AM EDT 06/03/2024 5:20 AM EDT Shahnaz Scanlon MD CHEMISTRY ORDERABLES [facility] [place] [address] * (ABNORMAL) Troponin-T, High Sensitivity 1 Hour (06/03/2024 3:07 AM EDT) Troponin-T, High Sensitivity 218(H) <=22 ng/L 06/03/2024 3:39 AM EDT [facility] Comment: This patient's troponin T [...] troponin value can be found in the [facility] Test Catalog Troponin - https://[facility]-.testcatalog.org/catalogs/565/files/70245 Reference: Fourth [place] Definition of Myocardial Infarction. Journal of the [place] [employer] 2018;72:6811-0078 Troponin-T, HS 1 hr delta 10 ng/L 06/03/2024 3:39 AM EDT [facility] Comment:The 1 hour Troponin T delta value is the absolute difference between the Troponin T concentrations of the initial and subsequent sample collected between 45 - 120 minutes following the initial collection. Blood VENOUS BLOOD SPECIMEN / Unknown IP Care Team Draw / Unknown 06/03/2024 3:07 AM EDT 06/03/2024 3:12 AM EDT Shahnaz Scanlon MD CHEMISTRY ORDERABLES [facility] [place] [address] * XR Chest One View (06/03/2024 2:41 AM EDT) WORKSTATION ID [id number] RAD Anatomical Region Laterality Modality Chest N/A Digital Radiogra phy Impressions 06/03/2024 3:06 AM EDT No radiographically evident acute cardiopulmonary process. Thank you for letting us participate in the care of this patient. ??If you are a health care provider and have any questions regarding this report, please contact the number below. ??For patients who have questions please contact the health healthcare account manager that requested your imaging first. ? [...] who have questions please contactthe health healthcare account manager that requested your imaging first. Electronically signed by: Corazon Mauro MD, [facility]([phone]), at 06/03/2024 3:06 AM Shahnaz Scanlon MD IMG DX ORDERABLES * Heparin (unfractionated) Level (06/03/2024 2:13 AM EDT) UF Heparin 0.56 IU/mL 06/03/2024 4:13 AM EDT [facility] Comment: Heparin (anti-Xa) levels should [...] EDT Shahnaz Scanlon MD HEMATOLOGY ORDERABLE S [facility] [place] [address] * (ABNORMAL) Troponin-T, High Sensitivity (06/03/2024 2:13 AM EDT) Troponin-T, High Sensitivity Initial 208(H) <=22 ng/L 06/03/2024 3:02 AM EDT [facility] Comment: This patient's troponin T [...] troponin value can be found in the [facility] Test Catalog Troponin - https://[facility]-.testcatalog.org/catalogs/565/files/62237 Reference: [place] Definition of Myocardial Infarction. Journal of the [place] [employer]iology 2018;72:3924-1391 Blood VENOUS BLOOD SPECIMEN / Unknown IP Care Team Draw / Unknown 06/03/2024 2:13 AM EDT 06/03/2024 2:32 AM EDT Shahnaz Scanlon MD CHEMISTRY ORDERABLES Performing Organization Address City/[facility]/ZIP Co de Phone Number [facility] [place] [address] * Magnesium (06/03/2024 2:13 AM EDT) Magnesium 0.86 0.69 - 1.07 mMol/L 06/03/2024 3:02 AM EDT [facility] Blood VENOUS BLOOD SPECIMEN / Unknown IP Care Team Draw / Unknown 06/03/2024 2:13 AM EDT 06/03/2024 2:32 AM EDT Shahnaz Scanlon MD CHEMISTRY ORDERABLES [facility] [place] [address] * Basic Metabolic Panel (06/03/2024 2:13 AM EDT) Glucose 126 65 - 199 mg/dL 06/03/2024 3:02 AM EDT [facility] Comment:Glucose Concentratio n >=200 mg/dL plus symptoms is consistent with Diabetes Mellitus. Blood Urea Nitrogen 20 10 - 20 mg/dL 06/03/2024 3:02 AM EDT [facility] Creatinine 1.13 0.80 - 1.50 mg/dL 06/03/2024 3:02 AM [facility] Sodium 139 135 - 145 mMol/L 06/03/2024 3:02 AM [facility] Potassium 4.2 3.5 - 5.0 mMol/L 06/03/2024 3:02 AM [facility] Chloride 101 98 - 107 mMol/L 06/03/2024 3:02 AM [facility] Carbon Dioxide 26 22 - 31 mMol/L 06/03[facility]2024 [facility] Anion Gap 12 5 - 15 mMol/L 06/03/2024 3:02 AM [facility] Calcium 9.8 8.5 - 10.5 mg/dL 06/03/2024 3:02 AM [facility] Est Glomerular Filtration Rate - Male 71 mL/min/1. 73 m?? 06/03/2024 3:[facility] Comment: This patient's estimated [...] AM EDT Shahnaz Scanlon MD CHEMISTRY ORDERABLES [facility] [place] [address] * (ABNORMAL) CBC (with Diff) (06/03/2024 2:13 AM EDT) White Blood Cell 11.16(H) 4.00 - 9.50 x10(3)/mc L 06/03/2024 2:37 AM [facility] Red Blood Cell 5.09 4.58 - 5.54 x10(6)/mc L 06/03/2024 2:37 AM [facility] Hemoglobin 15.0 13.7 - 16.5 g/dL 06/03/2024 2:37 AM T [facility] Hematocrit 47.4 40.5 - 48.5 % 06/03/2024 2:37 AM [facility] Mean Cell Volume 93.1 82.9 - 93.1 fL 06/03/2024 2:37 AM [facility] Mean Cell Hemoglobin 29.5 27.5 - 32.1 pg 06/03/2024 2:37 AM [facility] Mean Cell Hemoglobin Concentration 31.6(L) 32.0 - 35.7 g/dL 06/03/2024 2:37 AM [facility] Platelet 217 145 - 357 x10(3)/mc L 06/03/2024 2:37 AM [facility] Mean Platelet Volume 9.5 7.6 - 12.9 fL 06/03/2024 2:37 AM [facility] RDW Standard Deviation 49.0(H) 36.0 - 45.0 fL 06/03/2024 2:37 AM [facility] RDW coefficient of variation 14.1(H) 11.4 - 13.8 % 06/03/2024 2:37 AM [facility] NRBC% auto 0.0 % 06/03/2024 2:37 AM [facility] NRBC Absolute <0.01 <0.01 x10(3)/mc L 06/03/2024 2:37 AM [facility] Neutrophil % 58.4 % 06/03/2024 2:37 AM [facility] Neutrophil Absolute (ANC) - Automated 6.51(H) 1.70 - 6.10 x10(3)/mc L 06/03/2024 2:37 AM [facility] Lymph % 29.9 % 06/03/2024 2:37 AM [facility] Lymph Absolute 3.34(H) 0.90 - 3.20 x10(3)/mc L 06/03/2024 2:37 AM [facility] Monocyte % 8.1 % 06/03/2024 2:37 AM [facility] Monocyte Absolute 0.90 0.30 - 0.90 x10(3)/mc L 06/03/2024 2:37 AM [facility] Eos % 2.4 % 06/03/2024 2:37 AM [facility] Eos Absolute 0.27 0.00 - 0.40 x10(3)/mc L 06/03/2024 2:37 AM EDT [facility] Basophil % 0.8 % 06/03/2024 2:37 AM EDT [facility] Baso Absolute 0.09 0.00 - 0.10 x10(3)/mc L 06/03/2024 2:37 AM EDT [facility] Immature Gran % 0.4 % 2:37 AM EDT [facility] Immature Gran Absolute 0.05(H) 0.00 - 0.04 x10(3)/mc L 06/03/2024 2:37 AM EDT [facility] Blood VENOUS BLOOD SPECIMEN / Unknown IP Care Team Draw / Unknown 06/03/2024 2:13 AM EDT 06/03/2024 2:31 AM EDT Shahnaz Scanlon MD HEMATOLOGY ORDERABLE S Performing Organization Address City/State/[facility] Co de Phone Number [facility] [place] [address] * Lipid Panel (Reflex Direct LDL) (06/03/2024 2:13 AM EDT) Cholesterol, Total 76 mg/dL 06/03/2024 3:02 AM [facility] Comment: Desirable: < 200 mg/dL Borderline High: 200 - 239 mg/dL High: > or = 240 mg/dL Triglyceride 75 mg/dL 06/03/2024 3:02 AM EDT [facility] Comment: Normal: <150 mg/dL Borderline High: 150-199 mg/dL High: 200-499 mg/dL Very High: > or =500 mg/dL HDL Cholesterol 39 mg/dL 3:02 AM EDT [facility] Comment:Males: High Risk: <4 0 mg/dL LDL Cholesterol 21 mg/dL 3:02 AM [facility] Comment: Desirable: <100 mg/dL Above Desirable: 100-129 mg/dL Borderline High: 130-159 mg/dL High: 160-189 mg/dL Very High: > or =190 mg/dL Note: LDL calculation updated to the NIH LDL formula as of 03/07/2024 Non-HDL Cholesterol 37 mg/dL 06/03/2024 3:02 AM EDT [facility] Comment: Desirable: <130 mg/dL Above Desirable: 130-159 mg/dL Borderline High: 160-189 mg/dL High: 190-219 mg/dL Very High: > or = 220 mg/dL Blood VENOUS BLOOD SPECIMEN / Unknown IP Care Team Draw / Unknown 06/03/2024 2:13 AM EDT 06/03/2024 2:32 AM EDT [facility] - 06/03/2024 3:02 AM EDT It [...] Scanlon MD CHEMISTRY ORDERABLES Performing Organization Address [facility] de Phone Number [facility] [place] [address] * (ABNORMAL) APTT (06/03/2024 2:13 AM EDT) Partial Thromboplastin Time 105(HHH) 25 - 37 sec 06/03/2024 4:13 AM EDT [facility] Comment: The PTT is NOT [...] MD HEMATOLOGY ORDERABLE S Performing Organization Address [facility] Co de Phone Number [facility] [place] [address] * Prothrombin Time (06/03/2024 2:13 AM EDT) Prothrombin Time 11.5 9.4 - 12.5 sec 06/03/2024 4:13 AM EDT [facility] International Normalization Ratio 1.0 <=4.9 06/03/2024 4:13 AM EDT [facility] Comment: An INR < 2.0 [...] EDT Shahnaz Scanlon MD HEMATOLOGY ORDERABLE S [facility] [place] [address] * Hepatic Function Panel (06/03/2024 2:13 AM EDT) Albumin 3.8 3.2 - 5.2 g/dL 06/03/2024 3:02 AM EDT [facility] Aspartate Aminotransferase 20 <=39 unit/L 06/03/2024 3:02 AM EDT [facility] Alanine Aminotransferase 12 0 - 55 unit/L 06/03/2024 3:02 AM EDT [facility] Alkaline Phosphatase 76 40 - 130 unit/L 06/03/2024 3:02 AM EDT [facility] Bilirubin, Total 0.4 <=1.3 mg/dL 06/03/2024 3:02 AM EDT [facility] Bilirubin, Direct <0.2 0.0 - 0.3 mg/dL 06/03/2024 3:02 AM EDT [facility] Protein, Total 7.0 6.1 - 8.0 g/dL 06/03/2024 3:02 AM EDT [facility] Blood VENOUS BLOOD SPECIMEN / Unknown IP Care Team Draw / Unknown 06/03/2024 2:13 AM EDT 06/03/2024 2:32 AM EDT Shahnaz Scanlon MD CHEMISTRY ORDERABLES Performing Organization Address City/[facility]/ZIP Co de Phone Number [facility] [place] [address] * (ABNORMAL) pro-Brain Natriuretic Peptide (06/03/2024 2:13 AM EDT) NT-proBNP 1,628(H) <=124 pg/mL 06/03/2024 4:15 AM EDT [facility] Blood VENOUS BLOOD SPECIMEN / Unknown IP Care Team Draw / Unknown 06/03/2024 2:13 AM EDT 06/03/2024 2:32 AM EDT Shahnaz Scanlon MD CHEMISTRY ORDERABLES Performing Organization Address [facility] Co de Phone Number [facility] [place] [address] * Phosphorus (06/03/2024 2:13 AM EDT) Phosphorus 4.4 2.5 - 4.5 mg/dL 06/03/2024 3:02 AM EDT [facility] Blood VENOUS BLOOD SPECIMEN / Unknown IP Care Team Draw / Unknown 06/03/2024 2:13 AM EDT 06/03/2024 2:32 AM EDT Shahnaz Scanlon MD CHEMISTRY ORDERABLES Performing Organization Address City/[facility]/ZIP Co de Phone Number [facility] [place] [address] * EKG 12 Lead (06/03/2024 1:45 AM EDT) Ventricular rate 63 BPM MUSE SYSTEM Atrial Rate 63 BPM MUSE SYSTEM P-R Interval 168 ms MUSE SYSTEM QRS Duration 96 ms MUSE SYSTEM Q-T Interval 400 ms MUSE SYSTEM QTC Calculated (Bezet) 409 ms MUSE SYSTEM Calculated P Crawford 65 degrees MUSE SYSTEM Calculated R Crawford 70 degrees MUSE SYSTEM Calculated T Crawford -86 degrees MUSE SYSTEM INTERPRETATION Atrial-sensed ventricular-paced rhythm Abnormal ECG No previous ECGs available I personally reviewed the tracing and edited the fellows interpretation Confirmed by fellow Sunni Agudelo ([id number]) on 06/04/2024 3:55:40 PM Confirmed by MD Tamia, Stuart Perry ([id number]) on 06/05/2024 11:46:48 AM MUSE SYSTEM 06/03/2024 1:45 AM EDT 06/05/2024 11:46 AM EDT Shahnaz Scanlon MD ECG ORDERABLES MUSE SYSTEM * CARDIAC CATHETERIZATION (06/03/2024 12:42 AM EDT) Anatomical Region Laterality Modality Other Narrative 06/04/2024 2:22 PM EDT ?[facility] ? Cardiac Catheterization/Intervention Report ? Patient Name: George Mehta L. ? Procedure Date: 06/02/2024 ? A #: [id number] ? Primary Physician: Nuha Shen I ? Case #: [id number] ? File Name: [id number] ? Catheterization Order Number: [id number] ? [facility] ? Final Report [place], [place] ? Patient Name: ? George L. Tyson ? ID#: ?[id number] ? : ?1955 ? Procedure Date: ? [...] was designated as ASA Class IV. The [facility] clinical frailty ?scale is 5: Mildly Frail. ? Diagnostic Tests: ?Electrocardiography: ? EKG was assessed by ECG. EKG was Abnormal. EKG showed ST Deviation ? >= 0.5 mm. ?Medications Prior to Procedure: ? Sacubitril and Valsartan, Aspirin, Beta Erik, Statin and ? Thrombolytic (any). ? Indications for Diagnostic Cath: ?The priority of the diagnostic procedure was Emergent. The indication for ?the labor commissioner visit is ACS less than or equal [...] ?3.5 guiding catheter and a 3.5 Fr [place] [facility] [place] 20 Mhz using Manual ?pullback. ??Imaging was [...] 3.5 guiding catheter and a 3.5 Fr [place] [facility] [place] 20 Mhz using ?Manual pullback. ??Imaging was [...] Procedure Note Nuha Shen MD - 07/20/2024 [facility] Cardiac Catheterization/Intervention Report Patient Name: George Mehta Procedure Date: 06/02/2024 A #: [id number] Primary Physician: Nuha Shen I Case #: [id number] File Name: [id number] Catheterization Order Number: [id number] [facility] FinalReport [place], [place] Patient Name: George Mehta ID#:[id number] :1955 Procedure Date: June 02, 2024 Case [...] was designated as ASA Class IV. The [facility] clinicalfrailty scale is 5: Mildly Frail. Diagnostic Tests: Electrocardiography: EKG was assessed by ECG. EKG was Abnormal. EKG showed STDeviation >= 0.5 mm. Medications Prior to Procedure: Sacubitril and Valsartan, Aspirin, Beta Erik, Statin and Thrombolytic (any). Indications for Diagnostic Cath: The priority of the diagnostic procedure was Emergent. Theindication for the labor commissioner visit is ACS less than or equal [...] units of heparin were administered. A total at815rl of Omnipaque were opened, 84cc of Omnipaque were administered nzk92lv of Omnipaque were wasted. Radiation: Fluoro time [...] 3.5 guiding catheter and a 3.5 Fr [place] [facility] [place] 20 Mhz usingManual pullback. Imaging was successful. [...] 3.5 guiding catheter and a 3.5 Fr [place] [place] 20 Mhzusing Manual pullback. Imaging was successful. Indication: IVUS performed for pre intervention planning. Findings Pre-Intervention: scattered plaque, calcification and [id number] degrees calcification. Findings Post-Intervention: Stent not imaged [...] - 199 mg/dL 06/02/2024 11:31 PM EDT [facility] Comment:Supplemental ranges: <140 mg/dL before meals <180 mg/dL all other times of the day. Blood CAPILLARY BLOOD / Unknown 06/02/2024 11:31 PM EDT 06/02/2024 11:31 PM EDT Nuha Rojo MD POINT OF CARE TEST ORDERABLES Performing Organization Address City/State/[facility] Co de Phone Number [facility] [place] [phone] documented in this encounter Visit Diagnoses Not [...] 2100, Last dose on Fri06/23/24 at 0900, Machine Deicer Element Winder recommended duration is 3 days., Routine Given [...] 8:02 PM EST 2 tablets sodium chloride (Naplate) 0.65 % nasal spray 1 spray 1 [...] Orozco RN) 0837 (Given - Provider: Shazia Mcdonadl RN) empagliflozin (Jardiance) tablet 25 mg 25 [...] Lane RN)1802 (Given - Provider: Mary Lou Lane, JAMIE) [...] 2100, Last dose on Fri06/23/24 at 0900, Machine Deicer Element Winder recommended duration is 3 days., Routine 2043 [...] Routine 0823 (Given - Provider: Mary Lou Lane, JAMIE)2100 (Not Given - Provider: Christina Myers RN [...] oral route first line., Routine sodium chloride (Naplate) 0.65 % nasal spray 1 spray 1 [...] 6 hours upon arrival to Unit. Give UT if unable to take PO, Routine Group [...] Routine documented in this encounter Care Teams Buyer Intern Relationship Specialty Start Date End Date Mauro Berumen MD [address] [place] [address] PCP - General Family Medicine 06/02/24 documented as of this encounter
--- OUTSIDE RECORDS SUMMARY | 2024-08-18 10:27 | XMS_ITS | Encounter Summary ---
Author Organization [facility] Address [facility] [place] [address] Care Team Providers Care Mold Shop Supervisor Name Role Phone Mauro Berumen MD Primary Care Provider [phone] Encounter Details Date Type Department Care Team (Latest Contact Info) Description 06/03/2024 Travel Social History Tobacco Use Types Packs/Day Years Used Date Smoking Tobacco: Every Day Cigarettes Smokeless Tobacco: Never [facility] Utilities Answer Date Recorded In [...] in a fdc (including now)? No 06/03/2024 IPV Inpatient Questions [...] 2:00 PM EST Office Visit Cardiology at [address] [phone] Moi Falcon MD [facility] [place] [address] documented as of this encounter Visit Diagnoses Not on filedocumented in this encounter Care Teams Mold Shop Supervisor Relationship Specialty Start Date End Date Mauro Berumen MD [address] [place] [id number] PCP - General Family Medicine 06/02/24 documented as of this encounter
--- OUTSIDE RECORDS SUMMARY | 2024-08-18 10:27 | XMS_ITS | Encounter Summary ---
Author Organization [facility] Address [facility] [place] [address] Care Team Providers Care Time Study Analyst Name Role Phone Mauro Berumen MD Primary Care Provider [phone] Encounter Details Date Type Department Care Team (Late st Contact Info) Description 06/03/2024 Orders Only Cardiology [facility] [place] [phone] Unknown None Social History Tobacco Use Types Packs/Day Years Used Date Smoking Tobacco: Every Day Cigarettes Smokeless Tobacco: Never [facility] Utilities Answer Date Recorded In the past 12 months has th e electric, gas, oil, or water [employer] threatened to shut off services in your [...] any time in the past 12 m [facility], were you homeless or [...] 2:00 PM EST Office Visit Cardiology at [address] [phone] Moi Falcon MD [facility] [place] [address] documented as of this encounter Procedures Procedure Name Priority Date/Time Associated Diagnosis Comments ECHOCARDIOGRAM TRANSTHORACIC Routine 06/03/2024 2:23 AM EDT documented in this encounter Results * Echocardiogram Transthoracic (06/03/2024 2:23 AM EDT) Anatomical Region Laterality Modality Cardiac Other 06/03/2024 2:23 AM EDT Narrative 06/03/2024 10:32 AM EDT [address] [place] [id number] ? Echocardiogram Report Name: ARTURO NICHOLS ?Study Date: 06/03/2024 02:23 AM : 1955 Age: 69 yrs Gender: Male Performed By: Sascha Silva MD Reason For Study: STEMI Interpreting Fellow: Sascha Silva. Interpretation Summary Limited echo performed by fellow mechanical commissioning engineer to assess LV function. Left ventricle is mild to moderately dilated. Left ventricular ejection fraction is estimated visually at 25%. There is global dyskinesia with mid-basilar posterior-posterolateral akinesis. Right ventricle is not well seen. RV systolic function is probably normal. There is no prior echo for comparison. Procedure Limited - 08[address]. Suboptimal quality. Ventricular paced. Left Ventricle Left [...] Aneurysmal ?15-16 ?? diffuse Procedure Note Jonnie Joradn MD - 06/03/2024 [address] [place] [address] Echocardiogram Report Name: ARTURO NICHOLS Study Date: 06/03/2024 02:23AM : 1955 Age: 69 yrs Gender: Male Performed By: Sascha Silva MD Reason For Study: STEMI Interpreting Fellow: Sascha Silva. Interpretation Summary Limited echo performed by fellow mechanical commissioning engineer to assess LV function. Left ventricle is mild to moderately dilated. Left ventricular ejectionfraction is estimated visually at 25%. There is global dyskinesia withmid-basilar posterior-posterolateral akinesis. Right ventricle is not well seen. RV systolic function is probablynormal. There is no prior echo for comparison. Procedure Limited - [id number]. Suboptimal quality. Ventricular paced. Left Ventricle Left [...] on filedocumented in this encounter Care Teams Time Study Analyst Relationship Specialty Start Date End Date Mauro Berumen MD [address] [place] [id number] PCP - General Family Medicine 06/02/24 documented as of this encounter
--- OUTSIDE RECORDS SUMMARY | 2024-08-18 10:27 | XMS_ITS | Encounter Summary ---
Author Organization [facility] Address [facility] [place] [address] Care Team Providers Care Power Generating Plant Operator Name Role Phone Mauro Berumen MD Primary Care Provider [phone] Encounter Details Date Type Department Care Team (Late st Contact Info) Description 06/08/2024 Ophth [place] [address] Yumiko De La Torre, COT Social History Tobacco Use Types Packs/Day Years Used Date Smoking Tobacco: Every Day Cigarettes Smokeless Tobacco: Never [facility] Utilities Answer Date Recorded In [...] any time in the past 12 m [facility], were you homeless or living in a fci (including now)? No 06/03/2024 IPV Inpatient Questions [...] 2:00 PM EST Office Visit Cardiology at [address] [phone] Moi Falcon MD [facility] [place] [address] documented as of this encounter Visit Diagnoses Not on filedocumented in this encounter Care Teams Power Generating Plant Operator Relationship Specialty Start Date End Date Mauro Berumen MD [address] [place] [address] PCP - General Family Medicine 06/02/24 documented as of this encounter
--- OUTSIDE RECORDS SUMMARY | 2024-08-18 10:28 | XMS_ITS | Encounter Summary ---
Author Organization [facility] [place] [address] Care Team Providers Care Drilling And Production Superintendent Name Role Phone Mauro Berumen MD Primary Care Provider [phone] Reason for Visit * Auth/Cert Specialty Diagnoses / Procedures Referred By Carroll lopez Referred To Contact Diagnoses STEMI (ST elevation myocardial infarction) STEMI Procedures CARDIAC CATHETERIZATION EMERGENCY Delroy Monterroso MD [facility] [place] [address] [facility] Referral ID Status Reason Start Date Expiration Date Visits Re quested Visits Authorized [id number] 1 1 Encounter Details Date Type Department Care Team (Late st Contact Info) Description 06/02/2024 11:00 PM EDT - 06/03/2024 12:18 AM EDT Surgery [place] [address] Nuha Shen MD [facility] [place] [address] CARDIAC CATHETERIZATION Social History Tobacco Use Types Packs/Day Years Used Date Smoking Tobacco: Every Day Cigarettes Smokeless Tobacco: Never Tobacco Cessation:Ready to Q uit: No; Counseling Given: Yes [facility] Utilities Answer Date Recorded In the past 12 months has [employer], gas, oil, or water [employer] threatened to shut off services in your [...] any time in the past 12 m [facility], were you homeless or living in [...] Patient Age: 69 y.o. Birthdate: 1955 Language: Anguillan Race: Choose not to Disclose Ethnicity: Not nor Admit Date: 06/02/2024 Discharge Date: 06/21/2024 Attending Physician: Bobby Loja MD Follow-up Recommendations for Providers: Please continue routine management of cardiovascular risk factors including blood pressure, lipids,glucose, etc. Please note any changes to medications. Patient to follow up with PCP, Mauro Berumen MD, in 1-2 weeks. Patient to follow up with Retail Merchandising Manager, Kristen Cardenas in 2-3 weeks. Patient to follow up with Cardiac Surgeon, Dr. Bobby Loja, in 4 wks. Inpatient Provider Contact Information: [facility] Section of Cardiac Surgery [facility] [address] FAX [phone] Discharge Diagnoses (Hospital Problems) Primary Diagnoses: STEMI [...] performed by Bobby Loja MD [facility] OR PRO CABG, ARTERY-VEIN, TWO N/A 06/14/2024 @CABG, TWO VENOUS GRAFTS & ARTERIAL GRAFT (WRVU 7.93) [facility] ENDOSCOPY W/VIDEO-ASST VEIN HARVEST, CABG N/A 06/14/2024 ENDOSCOPIC HARVEST VEIN(S) FOR CABG (WRVU 0.31) performed by Bobby Loja MD at [facility]IN OR PRO EXC MEDIASTINAL TUMOR N/A 06/14/2024 @EXCISION OF MEDIASTINAL TUMOR (WRVU 19.55) performed by Bobby Loja MD at [facility] OR PRO INSERT INTRA-AORTIC BALLOON ASST DEVICE PERCUTANEOUS N/A 06/13/2024 @INSERTION OF IABP,PERCUTANEOUS (WRVU 4.84) performed by Nuha Shen MD at [facility] CATH LABS PRO UNLISTED CARDIAC SURG PROCEDURE N/A 06/14/2024 EXPLORATION AND OVERSEW ATRIAL APPENDAGE (WRVU 5.94) performed by Bobby Loja MD at [facility] [place] Prior To Admission Medications Medications [...] y.o. male with a PMHx of previous PA s/p PCI x3, ICM/HFrEF (LVEF 30%) s/p ICD, DMII, HTN, HLD, remote melanoma, and smoker who presented to [facility] last night via EMS after developing acute, severe chest pain while watching TV. Patient was ruled in for STEMI, given TNK, ASA, plavix, heparin gtt, and sent to [facility] for coronary angiography. LHC demonstrated severely calcified left coronary system with notable LCx 75/80% lesions and PROJECT GEOLOGIST OM1 with ISR with collateral retrograde filling, [...] Hospital Course: George Mehta was admitted to [facility] on 06/02/2024 via the CardiologyService with an anterior STEMI after receiving lytics at OSH. He was brought to the roofing laborer which showed severely calcified left coronary system with notable LCx 75/80% lesions and PROJECT GEOLOGIST OM1 with ISR with collateral retrograde filling, [...] juice or regular (not diet) soda 6 StartDate Labsavers small box of raisins 4 glucose tablets [...] 2 tablespoons of dried fruit. Milk and qt-bdcwc-wdqgi yogurt have 15 grams of carbs in a serving. A serving is 1 cup of milk or 3/4 cup (6 oz) of ny-bbtjf-vnidu yogurt. Starchy vegetables have 15 grams of carbs in a serving. A serving is ?? cup of mashed potatoes or sweet potato; 1 cup winter squash; ?? of a small baked potato; ?? cup of cooked beans; or ?? cup cooked corn or green peas. Learn how much carbs to eat each day and at each meal. A dietitian or certified appliance service technician can teach you how to keep [...] Bobby Loja and/or the Cardiac Surgery Physician Advertising Copy Writer Team may be reached at . Weight: [...] Dr. Bobby Loja. You may use a [place] Track or treadmill but avoid any pulling [...] friends, go to a movie, go to jainism, etc. Heavy activities: No hunting, skiing, jogging, snow shoveling, snowmobiling, lawn mowing, swimming,golf or tennis until after your return appointment with the surgeon. Do not ride motorcycles, ATPrysm'stractors or horses. Avoid the use of a [...] while being managed by your PCP and/or Retail Merchandising Manager. For future medication refills, please refer to your PCP and/or Retail Merchandising Manager after your discharge from our service. Thank you REMOVE CHEST TUBE SUTURES ON OR AFTER 06/24/2024 Home oxygen therapy: N/A Follow up appointments: You should follow up with your PCP, Mauro Berumen MD, in 1-2 weeks. You should follow up with your Retail Merchandising Manager, Dr CARDENAS. You have an appointment with your Cardiac Surgeon, Dr. Bobby Loja, in 4 wks. Cardiac Rehabilitation: George Mehta was seen today regarding participation in the outpatient Phase 2 Cardiac Rehabilitation at [facility]. The patient agrees to a referral to this program. The referral will be sent at discharge and the patient should be contacted by the program within 1-2 weeks from discharge. Future Appointments and Orders Future Orders Complete By Expires Referral to Cardiac Rehab [[id number] Custom] As directed Process Instructions: If no progress note charted, please enter Clinical details in comments. Scheduling Instructions: Questions: My question or request is: s/p CABG- cardiac rehab at [facility] Referral to Home Health [REF34 Custom] As directed Process Instructions: If no progress note charted, please enter Clinical details in comments. Scheduling Instructions: Comments: Please evaluate George Mehta for admission to Home Health. [address] [facility] [address] (home) Date of : 1955 Inpatient DOCUMENTATION FOR VNA SERVICES (INCLUDING THOSE PATIENTS WITH MEDICARE COVERAGE REQUIRINGHOME VNA SERVICES AND/OR HOSPICE SERVICES) PATIENT'S LOCATION: George Mehta [address] [place] [address] [address] [facility] [address] (home) Telephone Information: Firmware Engineer's Name: self In discussion with the attending physician, it is certified that this patient is under their care and that they, or a Nurse Practitioner, or Physician Advertising Copy Writer who is working directly with them, hada [...] for services as follows: HOME HEALTH AGENCY: [facility] [address] [place] [id number] RN orders: Cardiopulmonary assessment, incisional assessment, assess [...] issues please call the Cardiology Office at [phone] FOR MEDICARE ONLY: (please delete this section [...] care: As above. Signed: KEILA HANLEY APRN [facility] Section of Cardiac Surgery [facility] [address] FAX [phone] Date: 06/21/2024 CC: MD Antonino Tinajero Joshua R, PA [address] [place] [address] [place] [address] documented in this encounter Discharge Instructions * [...] 2 tablespoons of dried fruit. Milk and jc-hbrjv-xsaqq yogurt have 15 grams of carbs in a serving. A serving is 1 cup of milk or 3/4 cup (6 oz) of wc-rtkzl-dpotf yogurt. Starchy vegetables have 15 grams of carbs in a serving. A serving is ?? cup of mashed potatoes or sweet potato; 1 cup winter squash; ?? of a small baked potato; ?? cup of cooked beans; or ?? cup cooked corn or green peas. Learn how much carbs to eat each day and at each meal. A dietitian or certified appliance service technician can teach you how to keep [...] Bobby Loja and/or the Cardiac Surgery Physician Advertising Copy Writer Team may be reached at . Weight: [...] Dr. Bobby Loja. You may use a [place] Track or treadmill but avoid any pulling [...] friends, go to a movie, go to jainism, etc. Heavy activities: No hunting, skiing, jogging, snow shoveling, snowmobiling, lawn mowing, swimming,golf or tennis until after your return appointment with the surgeon. Do not ride motorcycles, ATPrysm'stractors or horses. Avoid the use of a [...] while being managed by your PCP and/or Retail Merchandising Manager. For future medication refills, please refer to your PCP and/or Retail Merchandising Manager after your discharge from our service. Thank you REMOVE CHEST TUBE SUTURES ON OR AFTER 06/24/2024 Home oxygen therapy: N/A Follow up appointments: You should follow up with your PCP, Mauro Berumen MD, in 1-2 weeks. You should follow up with your Retail Merchandising Manager, Dr CARDENAS. You have an appointment with your Cardiac Surgeon, Dr. Bobby Loja, in 4 wks. Cardiac Rehabilitation: George Mehta was seen today regarding participation in the outpatient Phase 2 Cardiac Rehabilitation at [facility]. The patient agrees to a referral [...] or weekly) [] Other * Alejandra Baumann, TRIAL JUSTICE - 06/21/2024 7:05 AM EST Follow Up [...] MARIALUISA clipping. PMH of chronic HFrEF s/p INFORMATION SYSTEMS ADMINISTRATOR/ICD, IDDM2, HTN, HLD, remote melanoma, active smoker. [...] 2 tablespoons of dried fruit. Milk and fj-bykjh-lxuam yogurt have 15 grams of carbs in a serving. A serving is 1 cup of milk or 3/4 cup (6 oz) of rd-rqpep-agatb yogurt. Starchy vegetables have 15 grams of carbs in a serving. A serving is ?? cup of mashed potatoes or sweet potato; 1 cup winter squash; ?? of a small baked potato; ?? cup of cooked beans; or ?? cup cooked corn or green peas. Learn how much carbs to eat each day and at each meal. A dietitian or certified appliance service technician can teach you how to keep [...] cheese, and peanut butter. Alejandra Baumann APRN [facility] Endocrinology Diabetes Management Pager [phone] Weekends please page [phone] * Eric Packer PA - 06/20/2024 7:44 AM EST Cardiac Surgery Progress Note George Mehta is a 69 y.o. male with a history of CAD s/p multiple PCI who presented with an anterior STEMI and was given lytics. Cath showed MV CAD without culprit vessel. He is now 6 Days Post-OpCABGx3 and MARIALUISA clipping. PMH of chronic HFrEF s/p INFORMATION SYSTEMS ADMINISTRATOR/ICD, IDDM2, HTN, HLD, remote melanoma, active smoker. 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 06/20/2024 Between the hours of 1800 - 0600 and on the weekends please page [phone]. * Alejandra Baumann, TRIAL JUSTICE - 06/20/2024 7:21 AM EST Follow Up Diabetes Consult Patient Interview Blood glucose values and insulin use reviewed. epoxy specialist BG to 59 despite decrease in [...] MARIALUISA clipping. PMH of chronic HFrEF s/p INFORMATION SYSTEMS ADMINISTRATOR/ICD, IDDM2, HTN, HLD, remote melanoma, active smoker. epoxy specialist BG to 59 despite decrease in [...] based on ISF 20 Alejandra Baumann APRN [facility] Endocrinology Diabetes Management Pager [phone] Weekends please page [phone] Insulin Discharge Instructions Preliminary Diabetes Discharge Instructions [...] 2 tablespoons of dried fruit. Milk and yx-ihgqg-jhuwy yogurt have 15 grams of carbs in a serving. A serving is 1 cup of milk or 3/4 cup (6 oz) of cx-xepmp-zvhrk yogurt. Starchy vegetables have 15 grams of carbs in a serving. A serving is ?? cup of mashed potatoes or sweet potato; 1 cup winter squash; ?? of a small baked potato; ?? cup of cooked beans; or ?? cup cooked corn or green peas. Learn how much carbs to eat each day and at each meal. A dietitian or certified appliance service technician can teach you how to keep [...] MARIALUISA clipping. PMH of chronic HFrEF s/p INFORMATION SYSTEMS ADMINISTRATOR/ICD, IDDM2, HTN, HLD, remote melanoma, active smoker. 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 Jeffy Hood MD 06/19/2024 Between the hours of 1800 - 0600 and on the weekends please page [phone]. * Alejandra Baumann, TRIAL JUSTICE - 06/19/2024 7:09 AM EST Follow Up Diabetes Consult Patient Interview Blood glucose values and insulin use reviewed. Jardiance added back yesterday, striping machine operator low BGto 51. Glargine reduced to [...] 144 180 125 99 92 ASSESSMENT George Metha is a 69 y.o. male with a history of CAD s/p multiple PCI who presented with an anterior STEMI and was given lytics. Cath showed MV CAD without culprit vessel. He is now 1 Day Post-Op CABGx3 and MARIALUISA clipping. PMH of chronic HFrEF s/p INFORMATION SYSTEMS ADMINISTRATOR/ICD, IDDM2, HTN, HLD, remote melanoma, active smoker. Jardiance added back yesterday. epoxy specialist low BG to 51. Glargine reduced [...] Insulin Instructions Your Long-acting insulin is called Treraphael Take 45 units of long acting insulin [...] 2 tablespoons of dried fruit. Milk and yg-tetqz-orgjm yogurt have 15 grams of carbs in a serving. A serving is 1 cup of milk or 3/4 cup (6 oz) of yn-rbgiw-gewcq yogurt. Starchy vegetables have 15 grams of carbs in a serving. A serving is ?? cup of mashed potatoes or sweet potato; 1 cup winter squash; ?? of a small baked potato; ?? cup of cooked beans; or ?? cup cooked corn or green peas. Learn how much carbs to eat each day and at each meal. A dietitian or certified appliance service technician can teach you how to keep [...] cheese, and peanut butter. Alejandra Baumann APRN [facility] Endocrinology Diabetes Management Pager [phone] Weekends please page [phone] * Hilda Resendez, CARDIOLOGY ASSOCIATE - 06/18/2024 9:19 AM EST Physical Therapy Note 2 Patient profile: George Mehta is a 69 y.o. male with a history of CAD s/p multiple PCI who presented with an anterior STEMI and was given lytics. Cath showed MV CAD without culprit vessel. He is now 1 Day Post-Op CABGx3 and MARIALUISA clipping. PMH of chronic HFrEF s/p INFORMATION SYSTEMS ADMINISTRATOR/ICD, IDDM2, HTN, HLD, remote melanoma, active smoker. Interval History: Per last cardiac surgery note on 06/18/2024 Cr improved 1.4 on lasix 40 iv bid -1.5L, made 2.5L urine Coreg, entresto restarted Floor status Social History: Pt lives with his in a 1 level apartment with no steps to enter. 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 He drives. He sleeps in a recliner at baseline. Precautions/Special Considerations: Sternal precautions, PIV, at risk to fall, PPM Mobility and Positioning Recommendations: Pt to utilize no AD, supervision for ambulation and transfers w/ cleaning staff supervisor as able. Please encourage up to chair [...] least restrictive device Time IN / OUT: 2907-1798 Total Time: 11 minutes; TEF 1 Hilda Resendez PTA Pager: [phone] Physical Therapy Inpatient Rehabilitation Department * Keila Hanley APRN - 06/18/2024 8:48 AM EST Cardiac Surgery Progress Note George Mehta is a 69 y.o. male with a history of CAD s/p multiple PCI who presented with an anterior STEMI and was given lytics. Cath showed MV CAD without culprit vessel. He is now 4 Days Post-OpCABGx3 and MARIAULISA clipping. PMH of chronic HFrEF s/p INFORMATION SYSTEMS ADMINISTRATOR/ICD, IDDM2, HTN, HLD, remote melanoma, active smoker. [...] dressing CDI, saphenectomy dressing CDi Tubes/Lines/Drains: Barr, RAYMOND Assessment/Plan: 69 y.o. 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 Restarting jardiance #Active smoker Duoneb prn Dispo: CVCC, Full code, tx to floor Discussed with attending surgeon on rounds this morning. KEILA HANLEY, JOSÉ ANTONIO 06/18/2024 Between the hours of 1800 - 0600 and on the weekends please page [phone]. * Alejandra Baumann, TRIAL JUSTICE - 06/17/2024 3:29 PM EST Follow Up [...] MARIALUISA clipping. PMH of chronic HFrEF s/p INFORMATION SYSTEMS ADMINISTRATOR/ICD, IDDM2, HTN, HLD, remote melanoma, active smoker. [...] based on ISF 20 Alejandra Baumann APRN [facility] Endocrinology Diabetes Management Pager [phone] Weekends please page [phone] 35 minutes were spent over the course [...] MARIALUISA clipping. PMH of chronic HFrEF s/p INFORMATION SYSTEMS ADMINISTRATOR/ICD, IDDM2, HTN, HLD, remote melanoma, active smoker. [...] 0600 and on the weekends please page [phone]. * Raymond Carlton MD - 06/16/2024 1:11 PM EST CARDIAC CRITICAL CARE ATTENDING STAFF PROGRESS NOTE Patient seen and examined. George Mehta is a 69 y.o. male with: Active Hospital Problems Diagnosis STEMI (ST elevation myocardial infarction) Cardiac resynchronization therapy defibrillator (INFORMATION SYSTEMS ADMINISTRATOR-D) - Medtronic Amplia Cardiomyopathy, ischemic Acute on chronic heart failure with reduced ejection fraction (HFrEF, <= 40%) Coronary artery disease involving bill moore's slough coronary artery of bill moore's slough heart without angina pectoris Type 2 diabetes [...] encouragement provided Patient screened for f/u and internal communications writer met pt at bedside. Pt states [...] unless consulted in the interim. RICHA Simmons Roller Skates Assembler * Octaviano Horvath PA - 06/16/2024 8:07 AM EST Cardiac Surgery Progress Note George Mehta is a 69 y.o. male with a history of CAD s/p multiple PCI who presented with an anterior STEMI and was given lytics. Cath showed MV CAD without culprit vessel. He is now 2 Days Post-OpCABGx3 and MARIALUISA clipping. PMH of chronic HFrEF s/p INFORMATION SYSTEMS ADMINISTRATOR/ICD, IDDM2, HTN, HLD, remote melanoma, active smoker. [...] 0600 and on the weekends please page [phone]. * Jono Fernandez, PT - 06/15/2024 4:09 PM EST Physical Therapy Evaluation Patient profile: George Mehta is a 69 y.o. male with a history of CAD s/p multiple PCI who presented with an anterior STEMI and was given lytics. Cath showed MV CAD without culprit vessel. He is now 1 Day Post-Op CABGx3 and MARIALUISA clipping. PMH of chronic HFrEF s/p INFORMATION SYSTEMS ADMINISTRATOR/ICD, IDDM2, HTN, HLD, remote melanoma, active smoker. 24h Events: From OR on Dobutamine IABP removed Bedrest ended ~2100, sedation weaned Extubated ~0200 Dobutamine weaned to 1 this morning, CI 2.6, shut off and repeat CI 2.4 Social History: Pt lives with his in a 1 level apartment with no steps to enter. 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 He drives. He [...] outlined inthis evaluation. JONO FERNANDEZ, PT Pager: [phone] Physical Therapy Inpatient Rehabilitation Department Time IN / OUT: 4796-3595 Total Time: 33 (eval) minutes * Alejandra Baumann APRN - 06/15/2024 11:39 AM EST Follow Up Diabetes Consult Patient Interview Blood glucose values and insulin use reviewed. Pt remains on an insulin drip today following [id number] MARIALUISA clipping. George continues to complain of [...] MARIALUISA clipping. PMH of chronic HFrEF s/p INFORMATION SYSTEMS ADMINISTRATOR/ICD, IDDM2, HTN, HLD, remote melanoma, active smoker. [...] based on ISF 20 Alejandra Baumann APRN [facility] Endocrinology Diabetes Management Pager [phone] Weekends please page [phone] 50 minutes were spent over the course of the day with this patient encounter including time spent in chart review and relevant lab result review, assessment of and counseling with the patient on diabetes and treatment plan, reviewing all glucose and insulin data, and coordination with the consulting service. * Rayomnd Carlton MD - 06/15/2024 11:21 AM EST CARDIAC CRITICAL CARE ATTENDING STAFF PROGRESS NOTE Patient seen and examined. George Mehta is a 69 y.o. male with: Active Hospital Problems Diagnosis STEMI (ST elevation myocardial infarction) Cardiac resynchronization therapy defibrillator (INFORMATION SYSTEMS ADMINISTRATOR-D) - Medtronic Amplia Cardiomyopathy, ischemic Acute on chronic heart failure with reduced ejection fraction (HFrEF, <= 40%) Coronary artery disease involving bill moore's slough coronary artery of bill moore[place] slough heart without angina pectoris Type 2 diabetes [...] with h/o DM, CAD with prior PCI, INFORMATION SYSTEMS ADMINISTRATOR-D who presented with crushing chest pain, found [...] MARIALUISA clipping. PMH of chronic HFrEF s/p INFORMATION SYSTEMS ADMINISTRATOR/ICD, IDDM2, HTN, HLD, remote melanoma, active smoker. [...] sternotomy dressing CDI, saphenectomy dressing CDi Tubes/Lines/Drains: Brokaw, RIJ, A-line, Mediastinal marcos and bilateral pleural [...] 0600 and on the weekends please page [phone]. * Yoli Donaldson, [facility] - 06/15/2024 5:35 AM EST AMV [...] with h/o DM, CAD with prior PCI, INFORMATION SYSTEMS ADMINISTRATOR-D who presented with crushing chest pain, found [...] with h/o DM, CAD with prior PCI, INFORMATION SYSTEMS ADMINISTRATOR-D who presented with crushing chest pain, found [...] 0600 and on the weekends please page [phone]. * Chloé Cortez - 06/14/2024 9:36 AM [...] unless consulted in the interim. Chloé Cortez Corduroy Cutting Supervisor * Jim Benites MD - 06/13/2024 1:15 [...] - Mildly dilated left ventricle size with nnbuwmuc-nc-pnzxbjex decreased LV systolic function. LV ejection fraction [...] ACS/crushing chest pain, likely due to lateral PA, found to have surgical CAD with viability [...] clinically significant Yoli Pride DTR * Haja Bynres MD - 06/12/2024 4:41 PM EST CRITICAL CARE ATTENDING PROGRESS NOTE ASSESSMENT, MANAGEMENT, and DECISION MAKING: HTN, HLD, DM2, current TUD (abstinent since admission), ASCVD with multiple prior PA and PCIs, ICM/HFrEF LVEF 30% (all territories [...] elevation myocardial infarction) Cardiac resynchronization therapy defibrillator (INFORMATION SYSTEMS ADMINISTRATOR-D) - Medtronic Amplia Cardiomyopathy, ischemic Acute on chronic heart failure with reduced ejection fraction (HFrEF, <= 40%) Coronary artery disease involving bill moore's slough coronary artery of bill moore's slough heart without angina pectoris Type 2 diabetes [...] PCP: Mauro Berumen MD PCP phone number: [phone] Date of Admission: 06/02/2024 ( Hospital Day 10 days ) Attending:Ethel Carrillo MD ID: 69 y.o. male with a h/o DM type 2, HTN, HLD, current smoker (2-3 cigarettes/day), HFrEF with anICD for low EF (~30%), and CAD with prior PA x3 with JENNA placed in [place], Melanoma, PAD, presented to [facility] with 1 hour of retrosternal CP (05/13) while watching TV, found to have STEMI. Active Problems: Active Hospital Problems Diagnosis STEMI (ST elevation myocardial infarction) Cardiac resynchronization therapy defibrillator (INFORMATION SYSTEMS ADMINISTRATOR-D) - Medtronic Amplia Cardiomyopathy, ischemic Acute on chronic heart failure with reduced ejection fraction (HFrEF, <= 40%) Coronary artery disease involving bill moore's slough coronary artery of bill moore's slough heart without angina pectoris Type 2 diabetes [...] 92.6 92.2 91.5 91.7 Recent Labs 06/12/24 03006/11/24 02106/10/24 0155 06/09/24 0825 06/09/24 0212 06/08/24 0321 [...] in the last 7068 hours. Invalid input(s): [id number] Recent Labs 06/12/24 0425 06/11/24 2356 06/11/24 2025 06/11/24 1624 06/11/24 1108 06/11/24 0748 06/11/24 0357 06/11/24 0050 06/10/24 1922 06/10/24 1735 06/10/24 1125 06/10/24 0746 POCGLU 132 135 210* 81 233* 184 132 144 236* 123 216* 206* Heme No results for input(s): LDH, HAPTOGLOBIN, URICACID in the last 168 hours. ABG (Arterial Blood Gas) No results found for: PHART, PO2ART, JGE3PMU, FXR2JYX Microbiology: Microbiology Results (Last 30 days) No results found for the last 720 hours. Imaging: Results for orders placed or performed during the hospital encounter of 06/02/24 XR Chest One View (Exam End: 06/03/2024 2:41 AM) Result Value WORKSTATION ID [id number] Impression No radiographically evident acute cardiopulmonary process. Thank you for letting us participate in the care of this patient. If you are a health care provider and have any questions regarding this report, please contact the number below. For patients who have questions please contact the health palliative care specialist that requested your imaging first. Electronically signed by: Corazon Mauro MD, [facility] ([phone]), at 06/03/2024 3:06 AM MRI Cardiac Morphology Function wwo Contrast (Exam End: 06/07/2024 1:10 PM) Result Value WORKSTATION ID [id number] Impression - Findings consistent with an ischemic [...] - Mildly dilated left ventricle size with zavlvyit-ym-jzrkvmfk decreased LV systolic function. LV ejection fraction [...] who have questions please contact the health palliative care specialist that requested your imaging first. Electronically signed by: Kriss Alonzo MD, [facility] ([phone]), at 06/07/2024 2:[address] Chest wo Contrast (Generic) (Exam End: 06/03/2024 4:33 PM) Result Value WORKSTATION ID [id number] Impression Cardiomegaly. Biventricular ICD leads in place. Thank you for letting us participate in the care of this patient. If you are a health care provider and have any questions regarding this report, please contact the number below. For patients who have questions please contact the health palliative care specialist that requested your imaging first. Electronically signed by: Stuart Aponte MD, [facility] ([phone]), at 06/03/2024 4:47 PM XR Chest PA & Lateral (Generic) (Exam End: 06/07/2024 7:03 AM) Result Value WORKSTATION ID [id number] Impression Biventricular ICD leads intact and in [...] who have questions please contact the health palliative care specialist that requested your imaging first. Electronically signed by: Stuart Aponte MD, [facility] ([phone]), at 06/07/2024 10:45 AM TTE: Limited echo performed by fellow installation technician to assess LV function. Left ventricle [...] ischemic cardiomyopathy with HFrEF (~30% EF), prior PA with stents, DM type 2, HTN, HLD, active smoker, presented with anterior STEMI. Angiography revealed severe multivessel CAD with extensive calcification and YUE 3 flow in all vessels, without a clear culprit lesion. Currently pain-free after TNK, Plavix, ASA, and heparin, with mildly elevated LVEDP at 40 mmHg and mild volume overload. 06/12/24: Patient stable, asymptomatic. Plan to go to roofing laborer for balloon pump tomorrow, then willgo [...] CODE Dain Colón MD Cardiology, M1-S2, Pager #[phone] 06/12/24 Associated attestation - Ethel Carrillo MD [...] (abstinent since admission), ASCVD with multiple prior PA and PCIs, ICM/HFrEF LVEF 30% (all territories [...] of two midnights or is on the [facility] inpatient only procedure list (status C) due to: acute myocardial infarction requiring titration of IV medication and fluid monitoring and decompensated congestive heart failure requiring IV medication and fluid monitoring Ethel Carrillo MD Cardiovascular Medicine Personal Pager [phone] 06/12/2024 9:12 PM * Alejandra Baumann, TRIAL [employer]ICE - 06/11/2024 4:21 PM EST Images from [...] too aggressive, suggest ICR 1:6 (rule of [id number] = 6.25). George is up and walking [...] ischemic cardiomyopathy with HFrEF (~30% EF), prior PA with stents, DM type 2, HTN, HLD, [...] ac, metformin 1000mg BID Alejandra Baumann APRN [facility] Endocrinology Diabetes Management Pager [phone] Weekends please page [phone] 35 minutes were spent over the course [...] PCP: Mauro Berumen MD PCP phone number: [phone] Date of Admission: 06/02/2024 ( Hospital Day 9 days ) Attending:Melida Valdes MD ID: 69 y.o. male with a h/o DM type 2, HTN, HLD, current smoker (2-3 cigarettes/day), HFrEF with anICD for low EF (~30%), and CAD with prior PA x3 with JENNA placed in [place], Melanoma, PAD, presented to [facility] with 1 hour of retrosternal CP (05/13) while watching TV, found to have STEMI. Active Problems: Active Hospital Problems Diagnosis STEMI (ST elevation myocardial infarction) Cardiac resynchronization therapy defibrillator (INFORMATION SYSTEMS ADMINISTRATOR-D) - Medtronic Amplia Cardiomyopathy, ischemic Acute on chronic heart failure with reduced ejection fraction (HFrEF, <= 40%) Coronary artery disease involving bill moore's slough coronary artery of bill moore's slough heart without angina pectoris Type 2 diabetes [...] in the last 7068 hours. Invalid input(s): [id number] Recent Labs 06/11/24 0357 06/11/24 0050 06/10/24 1922 06/10/24 1735 06/10/24 1125 06/10/24 0746 06/10/24 0423 06/10/24 0005 06/09/24 2036 06/09/24 1727 06/09/24 1152 06/09/24 0810 POCGLU 132 144 236* 123 216* 206* 154 125 197 174 211* 209* Heme No results for input(s): LDH, HAPTOGLOBIN, URICACID in the last 168 hours. ABG (Arterial Blood Gas) No results found for: PHART, PO2ART, ADZ6MKP, YUR1JEK Microbiology: Microbiology Results (Last 30 days) No results found for the last 720 hours. Imaging: Results for orders placed or performed during the hospital encounter of 06/02/24 XR Chest One View (Exam End: 06/03/2024 2:41 AM) Result Value WORKSTATION ID [id number] Impression No radiographically evident acute cardiopulmonary process. Thank you for letting us participate in the care of this patient. If you are a health care provider and have any questions regarding this report, please contact the number below. For patients who have questions please contact the health palliative care specialist that requested your imaging first. Electronically signed by: Corazon Mauro MD, [facility] ([phone]), at 06/03/2024 3:06 AM MRI Cardiac Morphology Function wwo Contrast (Exam End: 06/07/2024 1:10 PM) Result Value WORKSTATION ID [id number] Impression - Findings consistent with an ischemic [...] - Mildly dilated left ventricle size with guwyezsg-qd-ehmilfgq decreased LV systolic function. LV ejection fraction [...] who have questions please contact the health palliative care specialist that requested your imaging first. Electronically signed by: Kriss Alonzo MD, [facility] ([phone]), at 06/07/2024 2:[address] Chest wo Contrast (Generic) (Exam End: 06/03/2024 4:33 PM) Result Value WORKSTATION ID [id number] Impression Cardiomegaly. Biventricular ICD leads in place. Thank you for letting us participate in the care of this patient. If you are a health care provider and have any questions regarding this report, please contact the number below. For patients who have questions please contact the health palliative care specialist that requested your imaging first. Electronically signed by: Stuart Aponte MD, [facility] ([phone]), at 06/03/2024 4:47 PM XR Chest PA & Lateral (Generic) (Exam End: 06/07/2024 7:03 AM) Result Value WORKSTATION ID [id number] Impression Biventricular ICD leads intact and in [...] who have questions please contact the health palliative care specialist that requested your imaging first. Electronically signed by: Stuart Aponte MD, [facility] ([phone]), at 06/07/2024 10:45 AM TTE: Limited echo performed by fellow installation technician to assess LV function. Left ventricle [...] Infusions: heparin (porcine) infusion 1,400 Units/hr (06/10/24 2145) PRN Meds:.insulin lispro, glucose 40% oral geL [...] ischemic cardiomyopathy with HFrEF (~30% EF), prior PA with stents, DM type 2, HTN, HLD, [...] on placing this weekend and transfer to [facility], likely Friday. #ASCVD / STEMI: -Holding [...] CODE Dain Colón MD Cardiology, M1-S2, Pager #[phone] 06/11/24 Associated attestation - Ethel Carrilol MD - 06/11/2024 9:37 PM EST CARDIOLOGY [...] (abstinent since admission), ASCVD with multiple prior PA and PCIs, ICM/HFrEF LVEF 30% (all territories [...] of two midnights or is on the [facility] inpatient only procedure list (status C) due to: acute myocardial infarction requiring titration of IV medication and fluid monitoring and decompensated congestive heart failure requiring IV medication and fluid monitoring Ethel Carrillo MD Cardiovascular Medicine Personal Pager [phone] 06/11/2024 9:35 PM * Hilary Belle 06/10/2024 12:39 PM EST Nutrition Services Note George Mehta is a 69 y.o. male Reason for intervention: hospital day 9 Nutrition Plan: Continue diet order: 60/60/75 CHO Level 2 Encourage good PO Lasix and Insulin noted Monitor weight Patient scheduled for a hospital day 9 nutrition evaluation. Telecommunications Line Installer attempted to meet with pt at bedside [...] unless consulted in the interim. Hilary Belle Roller Skates Assembler * Mariia Montero RN - 06/10/2024 12:23 PM EST I have met with the patient to: discuss discharge planning needs. provide the [facility], Office of Care Management letter from the Preschool Assistant Director pertaining to rehab referrals. provide a letter describing our affiliations within the [facility] and educate about their right to choose where referrals are sent. provide a list of Home Health Agencies / Durable Medical Equipment vendors which serve their preferred geographic area. provided patient with [facility] Star Quality Rating handout. They have requested referrals to: [facility]. [address] [place] [id number] RN / PT Anticipated d/c date: 06/20/24 Note routed to a Air Sampler who will communicate referrals to facilities and provide any required information. * Dain Colón MD - 06/10/2024 7:17 AM EST Images from the original note were not included. . Cardiology Progress Note Patient info: Name: George Mehta : 1955 PCP: Mauro Berumen MD PCP phone number: [phone] Date of Admission: 06/02/2024 ( Hospital Day 8 days ) Attending:Melida Valdes MD ID: 69 y.o. male with a h/o DM type 2, HTN, HLD, current smoker (2-3 cigarettes/day), HFrEF with anICD for low EF (~30%), and CAD with prior PA x3 with JENNA placed in [place], Melanoma, PAD, presented to [facility] with 1 hour of retrosternal CP (05/13) while watching TV, found to have STEMI. Active Problems: Active Hospital Problems Diagnosis STEMI (ST elevation myocardial infarction) Cardiac resynchronization therapy defibrillator (INFORMATION SYSTEMS ADMINISTRATOR-D) - Medtronic Amplia Cardiomyopathy, ischemic Acute on chronic heart failure with reduced ejection fraction (HFrEF, <= 40%) Coronary artery disease involving bill moore's slough coronary artery of bill moore's slough heart without angina pectoris Type 2 diabetes [...] in the last 7068 hours. Invalid input(s): [id number] Recent Labs 06/10/24 0423 06/10/24 0005 06/09/24 2036 06/09/24 1727 06/09/24 1152 06/09/24 0810 06/09/24 0440 06/09/24 0034 06/08/24 2027 06/08/24 1616 06/08/24 1235 06/08/24 0810 POCGLU 154 125 197 174 211* 209* 131 186 176 159 226* 190 Heme No results for input(s): LDH, HAPTOGLOBIN, URICACID in the last 168 hours. ABG (Arterial Blood Gas) No results found for: PHART, PO2ART, TBN0VIX, RRH2YCR Microbiology: Microbiology Results (Last 30 days) No results found for the last 720 hours. Imaging: Results for orders placed or performed during the hospital encounter of 06/02/24 XR Chest One View (Exam End: 06/03/2024 2:41 AM) Result Value WORKSTATION ID [id number] Impression No radiographically evident acute cardiopulmonary process. Thank you for letting us participate in the care of this patient. If you are a health care provider and have any questions regarding this report, please contact the number below. For patients who have questions please contact the health palliative care specialist that requested your imaging first. Electronically signed by: Corazon Mauro MD, [facility] ([phone]), at 06/03/2024 3:06 AM MRI Cardiac Morphology Function wwo Contrast (Exam End: 06/07/2024 1:10 PM) Result Value WORKSTATION ID [id number] Impression - Findings consistent with an ischemic [...] - Mildly dilated left ventricle size with yqsijqsx-ml-plypaxjh decreased LV systolic function. LV ejection fraction [...] who have questions please contact the health palliative care specialist that requested your imaging first. Electronically signed by: Kriss Alonzo MD, [facility] ([phone]), at 06/07/2024 2:[address] Chest wo Contrast (Generic) (Exam End: 06/03/2024 4:33 PM) Result Value WORKSTATION ID [id number] Impression Cardiomegaly. Biventricular ICD leads in place. Thank you for letting us participate in the care of this patient. If you are a health care provider and have any questions regarding this report, please contact the number below. For patients who have questions please contact the health palliative care specialist that requested your imaging first. Electronically signed by: Stuart Aponte MD, [facility] ([phone]), at 06/03/2024 4:47 PM XR Chest PA & Lateral (Generic) (Exam End: 06/07/2024 7:03 AM) Result Value WORKSTATION ID [id number] Impression Biventricular ICD leads intact and in [...] who have questions please contact the health palliative care specialist that requested your imaging first. Electronically signed by: Stuart Aponte MD, [facility] ([phone]), at 06/07/2024 10:45 AM TTE: Limited echo performed by fellow installation technician to assess LV function. Left ventricle [...] ischemic cardiomyopathy with HFrEF (~30% EF), prior PA with stents, DM type 2, HTN, HLD, [...] CODE Dain Colón MD Cardiology, M1-S2, Pager #[phone] 06/10/24 Associated attestation - Melida Valdes MD [...] a lytic and brought directly to the Leaf Conditioner [facility]per. Cardiac catheterization demonstrated multivessel disease with severe [...] who is agreeable Melida Valdes MD Staff Retail Merchandising Manager * Cherelle Fregoso, JOSÉ ANTONIO - 06/09/2024 [...] ischemic cardiomyopathy with HFrEF (~30% EF), prior PA with stents, DM type 2, HTN, HLD, [...] PCP: Mauro Berumen MD PCP phone number: [phone] Date of Admission: 06/02/2024 ( Hospital Day 7 days ) Attending:Melida Valdes MD ID: 69 y.o. male with a h/o DM type 2, HTN, HLD, current smoker (2-3 cigarettes/day), HFrEF with anICD for low EF (~30%), and CAD with prior PA x3 with JENNA placed in [place], Melanoma, PAD, presented to [facility] with 1 hour of retrosternal CP (05/13) while watching TV, found to have STEMI. Active Problems: Active Hospital Problems Diagnosis STEMI (ST elevation myocardial infarction) Acute on chronic heart failure with reduced ejection fraction (HFrEF, <= 40%) Coronary artery disease involving bill moore's slough coronary artery of bill moore's slough heart without angina pectoris Type 2 diabetes [...] in the last 7068 hours. Invalid input(s): [id number] Recent Labs 06/09/24 0440 06/09/24 0034 06/08/24202606/08/24 1616 06/08/24 1235 06/08/24 0810 06/08/24 0409 06/07/24 2357 06/07/24 2005 06/07/24 1631 06/07/24 1105 06/07/24 1103 POCGLU 131 186 176 159 226* 190 151 188 118 174 221* 250* Heme No results for input(s): LDH, HAPTOGLOBIN, URICACID in the last 168 hours. ABG (Arterial Blood Gas) No results found for: PHART, PO2ART, TUJ9VPT, EJW3IIR Microbiology: Microbiology Results (Last 30 days) No results found for the last 720 hours. Imaging: Results for orders placed or performed during the hospital encounter of 06/02/24 XR Chest One View (Exam End: 06/03/2024 2:41 AM) Result Value WORKSTATION ID [id number] Impression No radiographically evident acute cardiopulmonary process. Thank you for letting us participate in the care of this patient. If you are a health care provider and have any questions regarding this report, please contact the number below. For patients who have questions please contact the health palliative care specialist that requested your imaging first. Electronically signed by: Corazon Mauro MD, [facility] ([phone]), at 06/03/2024 3:06 AM MRI Cardiac Morphology Function wwo Contrast (Exam End: 06/07/2024 1:10 PM) Result Value WORKSTATION ID [id number] Impression - Findings consistent with an ischemic [...] - Mildly dilated left ventricle size with ifdrgmia-pv-ycnczpwp decreased LV systolic function. LV ejection fraction [...] who have questions please contact the health palliative care specialist that requested your imaging first. Electronically signed by: Kriss Alonzo MD, [facility] ([phone]), at 06/07/2024 2:[address] Chest wo Contrast (Generic) (Exam End: 06/03/2024 4:33 PM) Result Value WORKSTATION ID [id number] Impression Cardiomegaly. Biventricular ICD leads in place. Thank you for letting us participate in the care of this patient. If you are a health care provider and have any questions regarding this report, please contact the number below. For patients who have questions please contact the health palliative care specialist that requested your imaging first. Electronically signed by: Stuart Aponte MD, [facility] ([phone]), at 06/03/2024 4:47 PM XR Chest PA & Lateral (Generic) (Exam End: 06/07/2024 7:03 AM) Result Value WORKSTATION ID [id number] Impression Biventricular ICD leads intact and in [...] who have questions please contact the health palliative care specialist that requested your imaging first. Electronically signed by: Stuart Aponte MD, [facility] ([phone]), at 06/07/2024 10:45 AM TTE: Limited echo performed by fellow installation technician to assess LV function. Left ventricle [...] Infusions: heparin (porcine) infusion 1,400 Units/hr (06/08/24 8795) PRN Meds:.glucose 40% oral geL OR dextrose [...] ischemic cardiomyopathy with HFrEF (~30% EF), prior PA with stents, DM type 2, HTN, HLD, [...] CODE Dain Colón MD Cardiology, M1-S2, Pager #[phone] 06/09/24 Associated attestation - Melida Valdes MD [...] a lytic and brought directly to the Leaf Conditioner [facility]per. Cardiac catheterization demonstrated multivessel disease with severe [...] insertion low EF. Melida Valdes MD Staff Retail Merchandising Manager * Alejandra Baumann, TRIAL JUSTICE - 06/08/2024 4:10 PM EST Images from [...] ischemic cardiomyopathy with HFrEF (~30% EF), prior PA with stents, DM type 2, HTN, HLD, [...] to optimize glucose control Alejandra Baumann APRN [facility] Endocrinology Diabetes Management Pager [phone] Weekends please page [phone] 35 minutes were spent over the course [...] PCP: Mauro Berumen MD PCP phone number: [phone] Date of Admission: 06/02/2024 ( Hospital Day 6 days ) Attending:Melida Valdes MD ID: 69 y.o. male with a h/o DM type 2, HTN, HLD, current smoker (2-3 cigarettes/day), HFrEF with anICD for low EF (~30%), and CAD with prior PA x3 with JENNA placed in [place], Melanoma, PAD, presented to [facility] with 1 hour of retrosternal CP (05/13) while watching TV, found to have STEMI. Active Problems: Active Hospital Problems Diagnosis STEMI (ST elevation myocardial infarction) Acute on chronic heart failure with reduced ejection fraction (HFrEF, <= 40%) Coronary artery disease involving bill moore's slough coronary artery of bill moore's slough heart without angina pectoris Type 2 diabetes [...] in the last 7068 hours. Invalid input(s): [id number] Recent Labs 06/08/24 0409 06/07/24 2357 06/07/24 2005 06/07/24 1631 06/07/24 1105 06/07/24 1103 06/07/24 0745 06/07/24 0425 06/07/24 0008 06/06/24 2018 06/06/24 1539 06/06/24 1339 POCGLU 151 188 118 174 221* 250* 175 127 182 143 147 317* Heme No results for input(s): LDH, HAPTOGLOBIN, URICACID in the last 168 hours. ABG (Arterial Blood Gas) No results found for: PHART, PO2ART, CQF5NEK, BKA6HUT Microbiology: Microbiology Results (Last 30 days) No results found for the last 720 hours. Imaging: Results for orders placed or performed during the hospital encounter of 06/02/24 XR Chest One View (Exam End: 06/03/2024 2:41 AM) Result Value WORKSTATION ID [id number] Impression No radiographically evident acute cardiopulmonary process. Thank you for letting us participate in the care of this patient. If you are a health care provider and have any questions regarding this report, please contact the number below. For patients who have questions please contact the health palliative care specialist that requested your imaging first. Electronically signed by: Corazon Mauro MD, [facility] ([phone]), at 06/03/2024 3:06 AM MRI Cardiac Morphology Function wwo Contrast (Exam End: 06/07/2024 1:10 PM) Result Value WORKSTATION ID [id number] Impression - Findings consistent with an ischemic [...] - Mildly dilated left ventricle size with injbfgou-ds-duaybtsl decreased LV systolic function. LV ejection fraction [...] who have questions please contact the health palliative care specialist that requested your imaging first. Electronically signed by: Kriss Alonzo MD, [facility] ([phone]), at 06/07/2024 2:[address] Chest wo Contrast (Generic) (Exam End: 06/03/2024 4:33 PM) Result Value WORKSTATION ID [id number] Impression Cardiomegaly. Biventricular ICD leads in place. Thank you for letting us participate in the care of this patient. If you are a health care provider and have any questions regarding this report, please contact the number below. For patients who have questions please contact the health palliative care specialist that requested your imaging first. Electronically signed by: Stuart Aponte MD, [facility] ([phone]), at 06/03/2024 4:47 PM XR Chest PA & Lateral (Generic) (Exam End: 06/07/2024 7:03 AM) Result Value WORKSTATION ID [id number] Impression Biventricular ICD leads intact and in [...] who have questions please contact the health palliative care specialist that requested your imaging first. Electronically signed by: tSuart Aponte MD, [facility] ([phone]), at 06/07/2024 10:45 AM TTE: Limited echo performed by fellow installation technician to assess LV function. Left ventricle [...] ischemic cardiomyopathy with HFrEF (~30% EF), prior PA with stents, DM type 2, HTN, HLD, [...] CODE Dain Colón MD Cardiology, M1-S2, Pager #[phone] 06/08/24 Associated attestation - Melida Valdes MD [...] a lytic and brought directly to the Leaf Conditioner [facility]per. Cardiac catheterization demonstrated multivessel disease with severe [...] Otherwise clinically stable Melida Valdes MD Staff Retail Merchandising Manager * Ross Manuel PA - 06/07/2024 12:00 PM EST Cardiac Electrophysiology CIED Interrogation/Programming Note Asked by MRI staff to evaluate and program Medtronic INFORMATION SYSTEMS ADMINISTRATOR-D to allow for MR imaging. Patient Active Problem List Diagnosis ','STEMI (ST elevation myocardial infarction) Acute on chronic heart failure with reduced ejection fraction (HFrEF, <= 40%) Coronary artery disease involving bill moore's slough coronary artery of bill moore's slough heart without angina pectoris Type 2 diabetes mellitus Device Data: Medtronic Amplia MRI Quad INFORMATION SYSTEMS ADMINISTRATOR-D [id number] #[id number] 06/16/2019 RA Medtronic 4076 CapSureFix Novus [id number] 06/16/2019 RV Medtronic 6935M [id number] 06/16/2019 LV Medtronic 4298 Attain Performa MRI [id number] 06/16/2019 DDD @ 50/130/130 Adaptive Bi-V and LV VF >188bpm ATP, 35j x6 FVT >188-222bpm burst 2, 35jx5 VT Battery longevity: 2.5yrs; charge time 4s P wave: 2.3mV R wave: >20.0mV Atrial impedance: 458 ohms RV impedance: 646 ohms LV impedance: 722 ohms Atrial threshold: 0.5V @ 0.4ms RV threshold: LV threshold: 1.75V @ 0.4ms AP 0.2% LACQUER PIN PRESS OPERATOR 97.7% AT/AF 0% Impression and Plan: 1. Interrogated device to determine suitability for MRI 2. Programmed to MRI safe mode - VOO @ 70 3. Scan performed 4. Programming restored to baseline settings 5. Reinterrogated to verify appropriate function and settings 6. Device follow up as previously scheduled Provider: HENOK Meyer EP Consult attending physician: Libby Barton MD EP Consult positional pager #[phone](EPMD) EP Device interrogation positional pager # [phone] * Dain Colón MD - 06/07/2024 7:09 AM EST Images from the original note were not included. . Cardiology Progress Note Patient info: Name: George Mehta : 1955 PCP: Maruo Berumen MD PCP phone number: [phone] Date of Admission: 06/02/2024 ( Hospital Day 5 days ) Attending:Melida Valdes MD ID: 69 y.o. male with a h/o DM type 2, HTN, HLD, current smoker (2-3 cigarettes/day), HFrEF with anICD for low EF (~30%), and CAD with prior PA x3 with JENNA placed in [place], Melanoma, PAD, presented to [facility] with 1 hour of retrosternal CP (05/13) while watching TV, found to have STEMI. Active Problems: Active Hospital Problems Diagnosis STEMI (ST elevation myocardial infarction) Acute on chronic heart failure with reduced ejection fraction (HFrEF, <= 40%) Coronary artery disease involving bill moore[place] slough coronary artery of bill moore[place]ough heart without angina pectoris Type 2 diabetes [...] Labs 06/07/24 0241 06/06/24 0333 06/05/24 0344 06/04/2443706/03/24212 WBC 10.06* 9.81* 10.83* 11.45* 11.16* HGB 14.8 14.6 15.3 16.0 15.0 HCT 46.2 45.4 46.8 49.6* 47.4 PLATELET 202 199 219 222 217 MCV 92.0 92.5 92.3 92.7 93.1 Recent Labs 06/07/24 0241 06/06/24 1437 06/06/24 1017 06/06/24 0333 06/05/24 0904 06/05/24 0344 06/04/24 1041 06/04/2443706/03/24212 NA 136 -- -- 136 -- 136 [...] in the last 7068 hours. Invalid input(s): [id number] Recent Labs 06/07/24 0425 06/07/24 0008 06/06/24 2018 06/06/24 1539 06/06/24 1339 06/06/24 1134 06/06/24 0757 06/06/24 0653 06/05/24 2231 06/05/24 1622 06/05/24 1134 06/05/24 0727 POCGLU 127 182 143 147 317* 264* 195 187 238* 205* 211* 166 Heme No results for input(s): LDH, HAPTOGLOBIN, URICACID in the last 168 hours. ABG (Arterial Blood Gas) No results found for: PHART, PO2ART, LAP2UYA, AIF5DTY Microbiology: Microbiology Results (Last 30 days) No results found for the last 720 hours. Imaging: Results for orders placed or performed during the hospital encounter of 06/02/24 XR Chest One View (Exam End: 06/03/2024 2:41 AM) Result Value WORKSTATION ID [id number] Impression No radiographically evident acute cardiopulmonary process. Thank you for letting us participate in the care of this patient. If you are a health care provider and have any questions regarding this report, please contact the number below. For patients who have questions please contact the health palliative care specialist that requested your imaging first. Chest wo Contrast (Generic) (Exam End: 06/03/2024 4:33 PM) Result Value WORKSTATION ID [id number] Impression Cardiomegaly. Biventricular ICD leads in place. Thank you for letting us participate in the care of this patient. If you are a health care provider and have any questions regarding this report, please contact the number below. For patients who have questions please contact the health palliative care specialist that requested your imaging first. Electronically signed by: Stuart Aponte MD, [facility] ([phone]), at 06/03/2024 4:47 PM TTE: Limited echo performed by fellow installation technician to assess LV function. Left ventricle [...] ischemic cardiomyopathy with HFrEF (~30% EF), prior PA with stents, DM type 2, HTN, HLD, [...] Dain Colón MD (PGY-1) Cardiology, M1-S2, Pager #[phone] 06/07/24 Associated attestation - Melida Valdes MD [...] a lytic and brought directly to the Leaf Conditioner Helper. Cardiac catheterization demonstrated multivessel disease with severe [...] for further guidance. Melida Valdes MD Staff Retail Merchandising Manager * Dain oClón MD - 06/06/2024 7:17 AM EST Images from the original note were not included. . Cardiology Progress Note Patient info: Name: George Mehta : 1955 PCP: Mauro Berumen MD PCP phone number: [phone] Date of Admission: 06/02/2024 ( Hospital Day 4 days ) Attending:Melida Valdes MD ID: 69 y.o. male with a h/o DM type 2, HTN, HLD, current smoker (2-3 cigarettes/day), HFrEF with anICD for low EF (~30%), and CAD with prior PA x3 with JENNA placed in [place], Melanoma, PAD, presented to [facility] with 1 hour of retrosternal CP (05/13) while watching TV, found to have STEMI. Active Problems: Active Hospital Problems Diagnosis STEMI (ST elevation myocardial infarction) Acute on chronic heart failure with reduced ejection fraction (HFrEF, <= 40%) Coronary artery disease involving bill moore's slough coronary artery of bill moore[place]ough heart without angina pectoris Type 2 diabetes [...] symptoms 06/03/24 0400 Labs: Recent Labs 06/06/2433206/05/244 06/04/2443706/03/24 021 WBC 9.81* 10.83* 11.45* 11.16* HGB [...] in the last 7068 hours. Invalid input(s): [id number] Recent Labs 06/06/24 0653 06/05/24 2231 06/05/24 1622 06/05/24 1134 06/05/24 0727 06/04/24 1943 06/04/24 1526 06/04/24 1109 06/04/24 0711 06/03/24 2005 06/03/24 1748 06/03/24 1114 POCGLU 187 238* 205* 211* 166 175 154 188 182 136 191 166 Heme No results for input(s): LDH, HAPTOGLOBIN, URICACID in the last 168 hours. ABG (Arterial Blood Gas) No results found for: PHART, PO2ART, JLM4OKW, SPI0JRZ Microbiology: Microbiology Results (Last 30 days) No results found for the last 720 hours. Imaging: Results for orders placed or performed during the hospital encounter of 06/02/24 XR Chest One View (Exam End: 06/03/2024 2:41 AM) Result Value WORKSTATION ID [id number] Impression No radiographically evident acute cardiopulmonary process. Thank you for letting us participate in the care of this patient. If you are a health care provider and have any questions regarding this report, please contact the number below. For patients who have questions please contact the health palliative care specialist that requested your imaging first. Electronically signed by: Corazon Mauro MD, [facility] ([phone]), at 06/03/2024 3:[address] Chest wo Contrast (Generic) (Exam End: 06/03/2024 4:33 PM) Result Value WORKSTATION ID [id number] Impression Cardiomegaly. Biventricular ICD leads in place. Thank you for letting us participate in the care of this patient. If you are a health care provider and have any questions regarding this report, please contact the number below. For patients who have questions please contact the health palliative care specialist that requested your imaging first. : Limited echo performed by fellow installation technician to assess LV function. Left ventricle [...] ischemic cardiomyopathy with HFrEF (~30% EF), prior PA with stents, DM type 2, HTN, HLD, [...] Dain Colón MD (PGY-1) Cardiology, M1-S2, Pager #[phone] 06/06/24 Associated attestation - Melida Valdes MD [...] a lytic and brought directly to the Leaf Conditioner Helper. Cardiac catheterization demonstrated multivessel disease with severe [...] management. Help appreciated Melida Valdes MD Staff Retail Merchandising Manager * Frederick Dunn MD - 06/05/2024 8:13 AM EDT Images from the original note were not included. . Cardiology Progress Note Patient info: Name: George Mehta : 1955 PCP: Mauro Berumen MD PCP phone number: [phone] Date of Admission: 06/02/2024 ( Hospital Day 3 days ) Attending:Melida Valdes MD ID: 69 y.o. male with a h/o DM type 2, HTN, HLD, current smoker (2-3 cigarettes/day), HFrEF with anICD for low EF (~30%), and CAD with prior PA x3 with JENNA placed in [place], Melanoma, PAD, presented to [facility] with 1 hour of retrosternal CP [...] in the last 7068 hours. Invalid input(s): [id number] Recent Labs 06/05/24 1134 06/05/24 0727 06/04/24 1943 06/04/24 1526 06/04/24 1109 06/04/24 0711 06/03/24 2005 06/03/24 1748 06/03/24 1114 06/03/24 0754 06/02/24 2331 POCGLU 211* 166 175 154 188 182 136 191 166 195 156 Heme No results for input(s): LDH, HAPTOGLOBIN, URICACID in the last 168 hours. ABG (Arterial Blood Gas) No results found for: PHART, PO2ART, OQQ0DLM, NMH8KKR Microbiology: Microbiology Results (Last 30 days) No results found for the last 720 hours. Imaging: Results for orders placed or performed during the hospital encounter of 06/02/24 XR Chest One View (Exam End: 06/03/2024 2:41 AM) Result Value WORKSTATION ID [id number] Impression No radiographically evident acute cardiopulmonary process. Thank you for letting us participate in the care of this patient. If you are a health care provider and have any questions regarding this report, please contact the number below. For patients who have questions please contact the health palliative care specialist that requested your imaging first. Electronically signed by: Corazon Mauro MD, [facility] ([phone]), at 06/03/2024 3:[address] Chest wo Contrast (Generic) (Exam End: 06/03/2024 4:33 PM) Result Value WORKSTATION ID [id number] Impression Cardiomegaly. Biventricular ICD leads in place. Thank you for letting us participate in the care of this patient. If you are a health care provider and have any questions regarding this report, please contact the number below. For patients who have questions please contact the health palliative care specialist that requested your imaging first. Electronically signed by: Stuart Aponte MD, [facility] ([phone]), at 06/03/2024 4:47 PM TTE: Limited echo performed by fellow installation technician to assess LV function. Left ventricle [...] ischemic cardiomyopathy with HFrEF (~30% EF), prior PA with stents, DM type 2, HTN, HLD, [...] all the information they need regarding the INFORMATION SYSTEMS ADMINISTRATOR-D.Plan for MRI tomorrow. Starting 40 mg IV [...] a lytic and brought directly to the Leaf Conditioner Helper. Cardiac catheterization demonstrated multivessel disease with severe [...] maintenance of 40. Melida Valdes MD Staff Retail Merchandising Manager * Migel Javier RN - 06/05/2024 6:21 AM EDT Implanted device record scanned into: Chart Review-->Media-->External Cardiology-->03/25/2024. Medtronic Amplia MRI Quad CRTD [id number] Serial #: [id number] DDD mode A + Bi/V Rates 50-130 Migel Javier RN * Dain Colón MD - 06/04/2024 11:16 AM EDT Implant Records Requested Type: INFORMATION SYSTEMS ADMINISTRATOR-D Automatic Gluing Machine Operator: Medtronic Product: [id number] Amplia MRI MRI compatibility: Compatible for 1.5-3 T Model #: [id number] Placed at: [place], [place] Records requested for MRI: 1. Operative report 2. Implant log I requested that these records be sent to our MRI department, Dain Colón MD 06/04/24 11:58 AM * Dain Colón MD - 06/04/2024 6:57 AM EDT Images from the original note were not included. . Cardiology Progress Note Patient info: Name: George Mehta : 1955 PCP: Mauro Berumen MD PCP phone number: [phone] Date of Admission: 06/02/2024 ( Hospital Day 2 days ) Attending:Delroy Fofana MD ID: 69 y.o. male with a h/o DM type 2, HTN, HLD, current smoker (2-3 cigarettes/day), HFrEF with anICD for low EF (~30%), and CAD with prior PA x3 with JENNA placed in [place], Melanoma, PAD, presented to [facility] with 1 hour of retrosternal CP [...] in the last 7068 hours. Invalid input(s): [id number] Recent Labs 06/03/24 2005 06/03/24 1748 06/03/24 1114 06/03/24 0754 06/02/24 2331 POCGLU 136 191 166 195 156 Heme No results for input(s): LDH, HAPTOGLOBIN, URICACID in the last 168 hours. ABG (Arterial Blood Gas) No results found for: PHART, PO2ART, QYP7KTE, QHN5OQY Microbiology: Microbiology Results (Last 30 days) No results found for the last 720 hours. Imaging: Results for orders placed or performed during the hospital encounter of 06/02/24 XR Chest One View (Exam End: 06/03/2024 2:41 AM) Result Value WORKSTATION ID [id number] Impression No radiographically evident acute cardiopulmonary process. Thank you for letting us participate in the care of this patient. If you are a health care provider and have any questions regarding this report, please contact the number below. For patients who have questions please contact the health palliative care specialist that requested your imaging first. Electronically signed by: Corazon Mauro MD, [facility] ([phone]), at 06/03/2024 3:[address] Chest wo Contrast (Generic) (Exam End: 06/03/2024 4:33 PM) Result Value WORKSTATION ID [id number] Impression Cardiomegaly. Biventricular ICD leads in place. Thank you for letting us participate in the care of this patient. If you are a health care provider and have any questions regarding this report, please contact the number below. For patients who have questions please contact the health palliative care specialist that requested your imaging first. Electronically signed by: Stuart Aponte MD, [facility] ([phone]), at 06/03/2024 4:47 PM TTE: Limited echo performed by fellow installation technician to assess LV function. Left ventricle [...] ischemic cardiomyopathy with HFrEF (~30% EF), prior PA with stents, DM type 2, HTN, HLD, [...] -Lasix 40 mg IV given in the roofing laborer; assess diuretic response, consider re-dosing -Continue [...] a lytic and brought directly to the Leaf Conditioner Helper. Cardiac catheterization demonstrated multivessel disease with severe [...] Friday -Diuresis with Jovanni Valdes MD Staff Retail Merchandising Manager * Fatmata Mcallister, PT - 06/03/2024 3:29 [...] vs PCI) Fatmata Mcallister PT, MSPT Pager [phone] Inpatient Physical Therapy * Marlin Gómez MD [...] Marlin Gómez MD Cardiology S2, Pager # [phone] 06/03/2024 * Delroy Fofana MD - 06/03/2024 7:16 AM EDT Images from the original note were not included. . Cardiology Progress Note Patient info: Name: George Mehta : 1955 PCP: Mauro Berumen MD PCP phone number: [phone] Date of Admission: 06/02/2024 ( Hospital Day 1 day ) Attending:Nuha Rojo MD ID: 69 y.o. male with a h/o DM type 2, HTN, HLD, current smoker (2-3 cigarettes/day), HFrEF with anICD for low EF (~30%), and CAD with prior PA x3 with JENNA placed in [place], Melanoma, PAD, presented to [facility] with 1 hour of retrosternal CP [...] in the last 7068 hours. Invalid input(s): [id number] Recent Labs 06/02/24 2331 POCGLU 156 Heme No results for input(s): LDH, HAPTOGLOBIN, URICACID in the last 168 hours. ABG (Arterial Blood Gas) No results found for: PHART, PO2ART, GFD8UQY, IVS2LII Microbiology: Microbiology Results (Last 30 days) No results found for the last 720 hours. Imaging: Results for orders placed or performed during the hospital encounter of 06/02/24 XR Chest One View (Exam End: 06/03/2024 2:41 AM) Result Value WORKSTATION ID [id number] Impression No radiographically evident acute cardiopulmonary process. Thank you for letting us participate in the care of this patient. If you are a health care provider and have any questions regarding this report, please contact the number below. For patients who have questions please contact the health palliative care specialist that requested your imaging first. Electronically signed by: Corazon Mauro MD, [facility] ([phone]), at 06/03/2024 3:06 AM TTE: Limited echo performed by fellow installation technician to assess LV function. Left ventricle [...] ischemic cardiomyopathy with HFrEF (~30% EF), prior PA with stents, DM type 2, HTN, HLD, [...] -Lasix 40 mg IV given in the roofing laborer; assess diuretic response, consider re-dosing -Continue [...] @YESSI@ Dain Colón MD (PGY-1) Cardiology M1-S2, #[id number] 06/03/2024, 7:16 AM Cardiology Staff - Progress Note Addendum This patient was seen and examined on morning rounds with the S2 inpatient team. I agree with the findings and plan of care per Dain Colón MD (medical laboratory scientist). Please refer to his note above for details. Very pleasant 69 year old male but he is obese, diabetic, and he is a SMOKER with known prior CAD and moderately reduced LVEF (30%). He has a pacer. History of surgical resection of melanoma on his head. The patient was transferred overnight to [facility] as a STEMI. He was treated initially with a lytic (TNK) and brought directly to the roofing laborer. The cath demonstrated 3VD with diffuse [...] - 06/13/2024 10:58 AM EST ICU Blue (#[id number]) H&P Patient info: Name: George Mehta : 1955 PCP: Mauro Berumen MD PCP phone number: [phone] Date of Admission: 06/02/2024 ( Hospital Day 11 days ) Attending:Haja Byrnes MD ID: George Metha is a 69 y.o. male with a h/o DM type 2, HTN, HLD, current smoker (2-3 cigarettes/day), HFrEF with an ICD for low EF (~30%), and CAD with prior PA x3 with JENNA placed in [place], Melanoma, PAD, presented to [facility] with 1 hour of retrosternal CP (05/13) while watching TV, foundto have STEMI. HPI: Shahnaz Scanlon H&P 06/02 69 y.o. male with a h/o DM type 2, HTN, HLD, current smoker (2-3 cigarettes/day), HFrEF with an ICD for low EF (~30%), and CAD with prior PA x3 with JENNA placed in [place], Melanoma, PAD, presented to [facility] with 1 hour of retrosternal CP (05/13) while watching TV. CP was non-radiating, not asso ciated with diaphoresis, nausea, or SOB. Denies orthopnea, MARTÍNEZ, palpitations, or LE edema. ECG showed findings consistent with anterior STEMI. He received TNK and was transferred for PCI. Coronary angiography showed a small, non-dominant RCA with akvh-az-ulnvpyej disease and a dominant,heavily calcified left system with prior stents in the LAD and OM. The LM bifurcates into the LAD and LCX, both heavily calcified. The proximal LCX has a 75% calcified, aneurysmal lesion, and an 80% calcified lesion distally before a large OM2. OM1 is a PROJECT GEOLOGIST with in-stent restenosis, filling retrograde via collaterals. [...] 40 mg Lasix was administered in the roofing laborer. Cardiac surgery was consulted and plan [...] Blood Gas) No results for input(s): PHART, YRA6BLQ, PO2ART, SNT2NRU, LACTATEVEN, XZG9KXC, PFRATIOART2 in the last 168 hours. VBG (Venous Blood Gas) Recent Labs 06/10/24 1742 PHVEN 7.34 PO2VEN 24 KZR7WIJ 27.4 Mixed Venous Sat No results for input(s): N0CMFD0 in the last 168 hours. Intake/Output Summary [...] Phlebitis 0-->no symptoms 06/13/24939 Infiltration 0-->no symptoms 06/13/24 09 Site Signs/Symptoms no redness;no swelling;no pain;no warmth;no palpable cord;no streak formation 06/09/24 0815 LDA Cath/EP Sheath 06/13/24 Proximal;Right;Anterior Femoral (Active) Site Assessment Clean;Dry;Intact 06/13/24 09 Intra-Aortic Balloon Pump 06/13/24 0937 (Active) Balloon [...] 92.6 92.2 91.5 Recent Labs 06/13/24 0748 06/13/246 06/12/24 1419 06/12/24 0303 06/11/24 0213 06/10/24 [...] in the last 7068 hours. Invalid input(s): NPJHGOOFNBG6E Recent Labs 06/13/24 0741 06/13/24 0325 06/12/24 2353 06/12/24 1932 06/12/24 1541 06/12/24 1121 06/12/24 0800 06/12/24 0425 06/11/24 2356 06/11/24 2025 06/11/24 1624 06/11/24 1108 POCGLU 126 99 141 158 113 207* 169 132 135 210* 81 233* Heme No results for input(s): LDH, HAPTOGLOBIN, URICACID in the last 168 hours. ABG (Arterial Blood Gas) No results for input(s): PHART, TJN5LHM, PO2ART, ZKW8JXO, LACTATEVEN, FMW0RCV, PFRATIOART2 in the last 168 hours. VBG (Venous Blood Gas) Recent Labs 06/10/24 1742 PHVEN 7.34 PO2VEN 24 OQR1HCU 27.4 Mixed Venous Sat No results for input(s): A8KAJY3 in the last 168 hours. Microbiology: Microbiology Results (Last 30 days) No results found for the last 720 hours. Assessment & Plan: George Mehta is a 69 y.o. male with CAD, ischemic cardiomyopathy with HFrEF (~30% EF), prior PA with stents, DM type 2, HTN, HLD, [...] Plan for CABG 06/14. Patient NPO at CT. #ASCVD / STEMI: -Holding Plavix; continue ASA [...] (Give Meds) Daily Healthy Menu Choices/Cardiac diet ([facility]-Diet) DVT Prophylaxis: SCD GI Prophylaxis: None Dispo: [...] TUD (abstinent since admission), ASCVD with multipleprior PA and PCIs, ICM/HFrEF LVEF 30% (all territories [...] is in the chart Rebeca Prado MD Shot Grinder Operator PGY6 [id number] * Shahnaz Scanlon MD [...] low EF (~30%), and CAD with prior PA x3 with JENNA placed in [place], Melanoma, PAD, presented to [facility] with 1 hour of retrosternal CP (10/10) while watching TV. CP was non-radiating, not assoc iated with diaphoresis, nausea, or SOB. Denies orthopnea, MARTÍNEZ, palpitations, or LE edema. ECG showed findings consistent with anterior STEMI. He received TNK and was transferred for PCI. Coronary angiography showed a small, non-dominant RCA with dgnx-wd-fpdcxaii disease and a dominant,heavily calcified left system with prior stents in the LAD and OM. The LM bifurcates into the LAD and LCX, both heavily calcified. The proximal LCX has a 75% calcified, aneurysmal lesion, and an 80% calcified lesion distally before a large OM2. OM1 is a PROJECT GEOLOGIST with in-stent restenosis, filling retrograde via collaterals. [...] 40 mg Lasix was administered in the roofing laborer. Past Medical History: As per HPI [...] Affect: Mood normal. Behavior: Behavior normal. Diagnostics: [facility] 06/02/2024 Coronary angiography revealed small [...] ischemic cardiomyopathy with HFrEF (~30% EF), prior PA with stents, DM type 2, HTN, HLD, [...] -Lasix 40 mg IV given in the roofing laborer; assess diuretic response. -Continue carvedilol; hold [...] Miscellaneous Notes * Care Management Discharge - Vagras Delong, RN - 06/21/2024 9:36 AM EST CARE [...] & Follow-up Care: Contact information for follow-up [facility] [address] [facility] [address] Cardiac Rehab, [address] [address] JAMIE GRAMAJO confirmed with [facility] that they [...] Payor: [employer] MANAGED MEDICARE / Plan: [facility] MANAGED MEDICARE COMPLETE / Product Type: [...] call jones within reach. PLAN MOVING FORWARD: [facility] D/[facility] planning INDIVIDUALIZED FALL PREVENTION INTERVENTIONS: Assistance [...] Implemented as Appropriate) 06/20/2024 1028 by Michelle Oroczo RN Outcome: Ongoing (Interventions Implemented as Appropriate) [...] Roberts RN - 06/18/2024 10:50 AM EST [facility]ATION George Mehta was seen today regarding participation in the outpatient Phase 2 Cardiac Rehabilitation at [facility]. The patient agrees to a referral [...] Agency/Support Group Needs: Homecare agency Agency Choices: [facility] Services: Medication checks, Registered Nurse, Physical Therapy Agency Referrals: pending clinical course and PT/OT recs [facility] [address] [place] [address] PHONE: [phone] FAX: [phone] Transportation: family or friend will provide Barriers [...] Payor: [employer] MANAGED MEDICARE / Plan: [facility] MANAGED MEDICARE COMPLETE / Product Type: *No Product type* / Secondary Insurance: N/A Plan for discharge is: Home w/ Services Outpatient Agency/Support Group Needs: Homecare agency Agency Choices: [facility]: Medication checks, Registered Nurse, Physical Therapy Agency Referrals: pending clinical course and PT/OT recs [facility] [address] [place] [address] PHONE: [phone] FAX: [phone] Transportation: family or friend will provide Barriers [...] Loja MD - 06/14/2024 8:48 AM EST [facility] Operative Note Patient Name: George Mehta : [id number] MR#: [id number] Case Date: 06/14/2024 Surgeon: Surgeons and Role: * Bobby Ljoa MD - Primary * Rashi Bass PA - Physician Advertising Copy Writer Preoperative diagnosis: CAD, MARIALUISA flickering mass on [...] Mass SURGICAL PATHOLOGY Bobby Loja MD 06/14/2024 0901 3 : Tissue Heart, Atrial Appendage, Left [...] procedures today and tomorrow. Report called to [facility] - all belongings with patient. PLAN MOVING FORWARD: labor relations representative and transfer to [facility]. INDIVIDUALIZED FALL PREVENTION [...] EVALUATION: ongoing * Care Management - Mariia Montreo RN - 06/11/2024 4:15 PM EST OFFICE [...] Payor: [employer] MANAGED MEDICARE / Plan: [facility] MANAGED MEDICARE COMPLETE / Product Type: *No Product type* / Secondary Insurance: N/A Plan for discharge is: Home w/ Services Outpatient Agency/Support Group Needs: Homecare agency, Agency Choices: [facility]. Home Health Services: Medication checks, Registered Nurse, Physical Therapy Agency Referrals: [facility] [place] [phone] RN / PT Routed 06/10 Transportation: family [...] with home health services when medically ready. offset printing pressmen/Business Change Manager will continue to follow patient???s progress and remain available if situation changes for coordination of care, psychosocial support and/or discharge planning. Anticipated Date of Discharge: 06/18/2024 Mariia Montero RN CM Extension [phone] * Plan of Care - Migel Javier [...] No Patient is insured through: Primary Insurance: [employer] MANAGED MEDICARE Payor: [employer] MANAGED MEDICARE / Plan: [employer] MANAGED MEDICARE COMPLETE / Product Type: *No [...] consult for high risk PCI vs CABG offset printing pressmen/Business Change Manager will continue to follow patient???s progress and remain available if situation changes for coordination of care, psychosocial support and/or discharge planning. Anticipated Date of Discharge: 06/11/2024 Mariia Montero RN Extension [phone] * Plan of Care - Becca Hope [...] ambulates in hallwaysindepently. K+ replaced 40mEq per OCT, X ray in AM needed for MRI. [...] Catheterization) Goal: Absence of Bleeding 06/07/2024656 by eBcca Hope RN Outcome: Ongoing [...] as Appropriate) * Consult Note - Alejandra Baumann, TRIAL JUSTICE - 06/06/2024 12:24 PM EST Diabetes Management Team Inpatient Consult Date of Consultation: 06/06/2024 Consult Requested by:Cardiology S2 Reason for Consultation:69 y.o. male with CAD, ischemic cardiomyopathy with HFrEF (~30% EF), prior PA with stents, DM type 2, HTN, HLD, [...] CABG and to provide a review of director long term care diabetes care. Diabetes History: George Mehta has [...] Infusions: heparin (porcine) infusion 1,400 Units/hr (06/06/24 5847) PRN: insulin lispro, potassium chloride ER OR [...] ischemic cardiomyopathy with HFrEF (~30% EF), prior PA with stents, DM type 2, HTN, HLD, [...] Baumann APRN Endocrinology Diabetes Management Service Pager: [phone] Weekends please page [phone] 80 minute visit was spent in counseling [...] y.o. male with a PMHx of previous PA s/p PCI x3, ICM/HFrEF (LVEF 30%) s/p ICD, DMII, HTN, HLD, remote melanoma, and smoker who presented to [facility] last night via EMS after developing acute, severe chest pain while watching TV. Patient was ruled in for STEMI, given TNK, ASA, plavix, heparin gtt, and sent to [facility] for coronary angiography. LHC demonstrated severely calcified left coronary system with notable LCx 75/80% lesions and PROJECT GEOLOGIST OM1 with ISR with collateral retrograde filling, [...] elevation myocardial infarction) Past Medical History: previous PA s/p PCI x3 ICM/HFrEF (LVEF 30%) s/p [...] is large. OM1 appears to be a PROJECT GEOLOGIST, with in stentrestenosis and fills retrograde via [...] y.o. male admitted with STEMI s/p TNK, [facility] showing multivessel CAD including ISR, [...] to our service. Signed: Paula Treviño PA-C [facility] Section of Cardiac Surgery Date: 06/03/2024 * Initial Assessments - Catina Estrada MSW - 06/03/2024 10:32 AM EDT Office of Care Management Initial Assessment CHINA Humphrey reviewed record and discussed patient with Care Team. Source of Information: Team, bedside nurse, medical record, and Patient CHINA Introduced self/reviewed role; services accepted. Admitted From: Transfer from another hospital Location: [facility] Reason for Hospitalization: Chest Pain while watching TV, doctors said I had a heart attack Past medical History: No past medical history on file. Hospitalizations Within the Past 30 Days: no previous admission in last 30 days Current Decision-Making Capacity: Self If AD's have not been completed the following surrogate would be surrogate decision maker per [place] surrogate decision making law. (Only good for 180 days) Any patient receiving care in [place] must abide by [place] law. The hierarchy for surrogate decision making [...] (i) The agent with financial power of assistant city attorney or a conservator appointed in accordance [...] or living in a senior care (including now)?: No In the past 12 [...] the bathroom) Home Address confirmed as: [address] [place] [address] [address] [facility] [address] Social & Family Supports: All names listed [...] Pertinent/Service Specific Information: Health/Prescription Coverage: Primary Insurance: [facility] MANAGED MEDICARE Payor: [facility] MANAGED MEDICARE / Plan: [facility] MANAGED MEDICARE COMPLETE / Product Type: *No Product type* / Secondary Insurance: N/A ; Prescription Coverage: Yes Preferred Pharmacy: [id number] - [place], [place] - [address] [place] [address] [place] [id number] Emma Status: Patient is a : No Primary Care Provider confirmed: Mauro Berumen MD [phone] Patient/Caregiver Goals of Treatment: Potential Needs for [...] care as indicated. CHINA Min Cardiology, ext. [phone] * Brief Op Note - Angeles Gaxiola PA - 06/03/2024 12:23 AM EDT Preliminary Cardiac Catheterization Procedure Note: Patient Name: George Mehta : [id number] MR#: [id number] Case Date: 06/02/2024 - 06/03/2024 Seniour Insight Manager: Surgeons and Role: * Nuha Shen MD - Primary * Angeles Gaxiola PA - Physician Advertising Copy Writer Preoperative diagnosis: STEMI Postoperative diagnosis: * STEMI * Procedure(s) performed: RRA access [facility] Coronary angiogram IVUS LM/LAD/LCX Access: 6 Fr RRA A time-out was conducted prior to the start of the procedure to verify the correct patient and procedure, procedure location, and all relevant critical information. Preliminary findings: 69 year old current smoker (1-2 cigarette's per day), DM type 2, hypertension, dyslipidemia, ICD for HFrEF/low EF (~30%), CAD with prior PA and 3 stents historically (in [place]) who presented to [facility] with 1 hour of rest chest [...] is large. 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 Recommendations: surgical consult for possible open revascularization; if not a surgical candidate,could potentially be considered for high risk PCI with atherectomy if in the best interest of the patient The patient tolerated the procedures smoothly and was transferred from the cardiac catheterization lab to the next level of care in stable condition. No evident early complications. Full report to follow. HENOK Roegrs documented in this encounter Plan of Treatment Upcoming Encounters Date Type Department Care Team (Late st Contact Info) Description 09/29/2024 2:00 PM EST Office Visit Cardiology at [address] [phone] Moi Falcon MD [facility] [place] [address] Scheduled Orders Name Type Priority Associated Diagnoses [...] 7:20 AM EST Coronary artery disease involving [place] coronary artery of [place] heart without angina pectoris POC, GLUCOSE Routine [...] * POC, GLUCOSE (06/21/2024 3:51 AM EST) Pathologist [facility] Glucometer, POC 142 65 - 199 mg/dL 06/21/2024 3:51 AM EST [facility] Comment:Supplemental ranges: <140 mg/dL before meals <180 mg/dL all other times of the day. Blood CAPILLARY BLOOD / Unknown 06/21/2024 3:51 AM EST 06/21/2024 3:51 AM EST Bobby Loja MD POINT OF CARE TEST O RDERABLES [facility] [place] [address] * (ABNORMAL) Basic Metabolic Panel (06/21/2024 2:09 AM EST) Pathologist [facility] Glucose 169 65 - 199 mg/dL 06/21/2024 3:10 AM [facility] Comment:Glucose Concentratio n >=200 mg/dL plus symptoms is consistent with Diabetes Mellitus. Blood Urea Nitrogen 27(H) 10 - 20 mg/dL 06/21/2024 3:10 AM [facility] Creatinine 1.24 0.80 - 1.50 mg/dL 06/21/2024 3:10 AM [facility] Sodium 138 135 - 145 mMol/L 06/21/2024 3:10 AM [facility] Potassium 4.2 3.5 - 5.0 mMol/L 06/21/2024 3:10 AM [facility] Chloride 100 98 - 107 mMol/L 06/21/2024 3:10 AM [facility] Carbon Dioxide 27 22 - 31 mMol/L 06/21/2024 3:10 AM [facility] Anion Gap 11 5 - 15 mMol/L 06/21/2024 3:10 AM [facility] Calcium 8.7 8.5 - 10.5 mg/dL 06/21/2024 3:10 AM [facility] Est Glomerular Filtration Rate - Male 64 mL/min/1. 73 m?? 06/21/2024 3:10 AM [facility] Comment: [...] APRN CHEMISTRY ORDERABL ES Performing Organization Address [facility] Co de Phone Number [facility] [place] [address] * POC, GLUCOSE (06/21/2024 12:04 AM EST) Glucometer, POC 157 65 - 199 mg/dL 06/21/2024 12:04 AM EST [facility] Comment:Supplemental ranges: <140 mg/dL before meals <180 mg/dL all other times of the day. Blood CAPILLARY BLOOD / Unknown 06/21/2024 12:04 AM EST 06/21/2024 12:04 AM EST Bobby Loja MD POINT OF CARE TEST O NIKA Performing Organization Address [facility] Co de Phone Number [facility] [place] [address] * POC, GLUCOSE (06/20/2024 11:14 PM EST) Glucometer, POC 67 65 - 199 mg/dL 06/20/2024 11:14 PM EST [facility] Comment:Supplemental ranges: <140 mg/dL before meals <180 mg/dL all other times of the day. Blood CAPILLARY BLOOD / Unknown 06/20/2024 11:14 PM EST 06/20/2024 11:14 PM EST Bobby Loja MD POINT OF CARE TEST O NIKA Performing Organization Address City/[facility]/ZIP Co de Phone Number [facility] [place] [address] * POC, GLUCOSE (06/20/2024 7:16 PM EST) Glucometer, POC 132 65 - 199 mg/dL 06/20/2024 7:16 PM EST [facility] Comment:Supplemental ranges: <140 mg/dL before meals <180 mg/dL all other times of the day. Blood CAPILLARY BLOOD / Unknown 06/20/2024 7:16 PM EST 06/20/2024 7:16 PM EST Bobby Loja MD POINT OF CARE TEST O RDBECKIE Performing Organization Address City/[facility]/ZIP Co de Phone Number [facility] [place] [address] * POC, GLUCOSE (06/20/2024 3:39 PM EST) Glucometer, POC 124 65 - 199 mg/dL 06/20/2024 3:40 PM EST [facility] Comment:Supplemental ranges: <140 mg/dL before meals <180 mg/dL all other times of the day. Blood CAPILLARY BLOOD / Unknown 06/20/2024 3:39 PM EST 06/20/2024 3:40 PM EST Bobby Loja MD POINT OF CARE TEST O NIKA Performing Organization Address [facility] Co de Phone Number [facility] [place] [address] * POC, GLUCOSE (06/20/2024 12:02 PM EST) Glucometer, POC 173 65 - 199 mg/dL 06/20/2024 12:03 PM EST [facility] Comment:Supplemental ranges: <140 mg/dL before meals <180 mg/dL all other times of the day. Blood CAPILLARY BLOOD / Unknown 06/20/2024 12:02 PM EST 06/20/2024 12:03 PM EST Bobby Loja MD POINT OF CARE TEST O NIKA Performing Organization Address City/[facility]/ZIP Co de Phone Number [facility] [place] [address] * POC, GLUCOSE (06/20/2024 7:10 AM EST) Glucometer, POC 130 65 - 199 mg/dL 06/20/2024 7:11 AM EST [facility] Comment:Supplemental ranges: <140 mg/dL before meals <180 mg/dL all other times of the day. Blood CAPILLARY BLOOD / Unknown 06/20/2024 7:10 AM EST 06/20/2024 7:11 AM EST Bobby Loja MD POINT OF CARE TEST O RDERABLES [facility] [place] [address] * (ABNORMAL) Basic Metabolic Panel (06/20/2024 2:28 AM EST) Glucose 79 65 - 199 mg/dL 06/20/2024 3:06 AM [facility] Comment:Glucose Concentratio n >=200 mg/dL plus symptoms is consistent with Diabetes Mellitus. Blood Urea Nitrogen 38(H) 10 - 20 mg/dL 06/20/2024 3:06 AM [facility] Creatinine 1.39 0.80 - 1.50 mg/dL 06/20/2024 3:06 AM [facility] Sodium 137 135 - 145 mMol/L 06/20/2024 3:06 AM [facility] Potassium 3.6 3.5 - 5.0 mMol/L 06/20/2024 3:06 AM [facility] Chloride 100 98 - 107 mMol/L 06/20/2024 3:06 AM [facility] Carbon Dioxide 29 22 - 31 mMol/L 06/20/2024 3:06 AM [facility] Anion Gap 8 5 - 15 mMol/L 06/20/2024 3:06 AM [facility] Calcium 8.4(L) 8.5 - 10.5 mg/dL 06/20/2024 3:06 AM [facility] Est Glomerular Filtration Rate - Male 56 mL/min/1. 73 m?? 06/20/2024 3:06 AM [facility] Comment: [...] [facility]/ZIP Co de Phone Number [facility] [place] [address] * POC, GLUCOSE (06/20/2024 12:32 AM EST) Glucometer, POC 86 65 - 199 mg/dL 06/20/2024 12:32 AM EST [facility] Comment:Supplemental ranges: <140 mg/dL before meals <180 mg/dL all other times of the day. Blood CAPILLARY BLOOD / Unknown 06/20/2024 12:32 AM EST 06/20/2024 12:32 AM EST Bobby Loja MD POINT OF CARE TEST O NIKA Performing Organization Address City/[facility]/ZIP Co de Phone Number [facility] [place] [address] * (ABNORMAL) POC, GLUCOSE (06/20/2024 12:02 AM EST) Glucometer, POC 59(L) 65 - 199 mg/dL 06/20/2024 12:02 AM EST [facility] Comment:Supplemental ranges: <140 mg/dL before meals <180 mg/dL all other times of the day. Blood CAPILLARY BLOOD / Unknown 06/20/2024 12:02 AM EST 06/20/2024 12:03 AM EST Bobby Loja MD POINT OF CARE TEST O RDERABLES Performing Organization Address [facility] Co de Phone Number [facility] [place] [address] * POC, GLUCOSE (06/19/2024 8:15 PM EST) Glucometer, POC 131 65 - 199 mg/dL 06/19/2024 8:15 PM EST [facility] Comment:Supplemental ranges: <140 mg/dL before meals <180 mg/dL all other times of the day. Blood CAPILLARY BLOOD / Unknown 06/19/2024 8:15 PM EST 06/19/2024 8:15 PM EST Bobby Loja MD POINT OF CARE TEST O NIKA Performing Organization Address [facility] Co de Phone Number [facility] [place] [address] * POC, GLUCOSE (06/19/2024 6:01 PM EST) Glucometer, POC 129 65 - 199 mg/dL 06/19/2024 6:01 PM EST [facility] Comment:Supplemental ranges: <140 mg/dL before meals <180 mg/dL all other times of the day. Blood CAPILLARY BLOOD / Unknown 06/19/2024 6:01 PM EST 06/19/2024 6:02 PM EST Bobby Loja MD POINT OF CARE TEST O RDERAPIETER Performing Organization Address City/[facility] Co de Phone Number [facility] [place] [address] * POC, GLUCOSE (06/19/2024 4:51 PM EST) Glucometer, POC 155 65 - 199 mg/dL 06/19/2024 4:51 PM EST [facility] Comment:Supplemental ranges: <140 mg/dL before meals <180 mg/dL all other times of the day. Blood CAPILLARY BLOOD / Unknown 06/19/2024 4:51 PM EST 06/19/2024 4:51 PM EST Bobby Loja MD POINT OF CARE TEST O RDERAPIETER Performing Organization Address City/[facility] Co de Phone Number [facility] [place] [address] * POC, GLUCOSE (06/19/2024 12:37 PM EST) Glucometer, POC 136 65 - 199 mg/dL 06/19/2024 12:37 PM EST [facility] Comment:Supplemental ranges: <140 mg/dL before meals <180 mg/dL all other times of the day. Blood CAPILLARY BLOOD / Unknown 06/19/2024 12:37 PM EST 06/19/2024 12:37 PM EST Bobby Loja MD POINT OF CARE TEST O NIKA Performing Organization Address [facility] Co de Phone Number [facility] [place] [address] * POC, GLUCOSE (06/19/2024 11:20 AM EST) Glucometer, POC 185 65 - 199 mg/dL 06/19/2024 11:21 AM EST [facility] Comment:Supplemental ranges: <140 mg/dL before meals <180 mg/dL all other times of the day. Blood CAPILLARY BLOOD / Unknown 06/19/2024 11:20 AM EST 06/19/2024 11:21 AM EST Bobby Loja MD POINT OF CARE TEST O RALPHERAPIETER Performing Organization Address City/[facility]/ZIP Co de Phone Number [facility] [place] [address] * POC, GLUCOSE (06/19/2024 7:21 AM EST) Glucometer, POC 125 65 - 199 mg/dL 06/19/2024 7:21 AM EST [facility] Comment:Supplemental ranges: <140 mg/dL before meals <180 mg/dL all other times of the day. Blood CAPILLARY BLOOD / Unknown 06/19/2024 7:21 AM EST 06/19/2024 7:22 AM EST Bobby Loja MD POINT OF CARE TEST O NIKA Performing Organization Address [facility] Co de Phone Number [facility] [place] [address] * POC, GLUCOSE (06/19/2024 4:52 AM EST) Glucometer, POC 125 65 - 199 mg/dL 06/19/2024 4:52 AM EST [facility] Comment:Supplemental ranges: <140 mg/dL before meals <180 mg/dL all other times of the day. Blood CAPILLARY BLOOD / Unknown 06/19/2024 4:52 AM EST 06/19/2024 4:52 AM EST Bobby Loja MD POINT OF CARE TEST O NIKA Performing Organization Address [facility] Co de Phone Number [facility] [place] [address] * POC, GLUCOSE (06/19/2024 4:13 AM EST) Glucometer, POC 67 65 - 199 mg/dL 06/19/2024 4:13 AM EST [facility] Comment:Supplemental ranges: <140 mg/dL before meals <180 mg/dL all other times of the day. Blood CAPILLARY BLOOD / Unknown 06/19/2024 4:13 AM EST 06/19/2024 4:13 AM EST Narrative Authorizing Provider Result Saranya Loja MD POINT OF CARE TEST O NIKA Performing Organization Address [facility] Co de Phone Number [facility] [place] [address] * (ABNORMAL) POC, GLUCOSE (06/19/2024 3:48 AM EST) Glucometer, POC 51(LLL) 65 - 199 mg/dL 06/19/2024 3:48 AM [facility] Comment:Supplemental ranges: <140 mg/dL before meals <180 mg/dL all other times of the day. Blood CAPILLARY BLOOD / Unknown 06/19/2024 3:48 AM EST 06/19/2024 3:48 AM EST Bobby Loja MD POINT OF CARE TEST O RDERABLES [facility] [place] [address] * (ABNORMAL) Basic Metabolic Panel (06/19/2024 3:44 AM EST) Glucose 53(LLL) 65 - 199 mg/dL 06/19/2024 4:48 AM [facility] Comment:Glucose Concentratio n >=200 mg/dL plus symptoms is consistent with Diabetes Mellitus. Blood Urea Nitrogen 42(H) 10 - 20 mg/dL 06/19/2024 4:48 AM [facility] Creatinine 1.29 0.80 - 1.50 mg/dL 06/19/2024 4:48 AM [facility] Sodium 138 135 - 145 mMol/L 06/19/2024 4:48 AM [facility] Potassium 3.6 3.5 - 5.0 mMol/L 06/19/2024 4:48 AM [facility] Chloride 100 98 - 107 mMol/L 06/19/2024 4:48 AM [facility] Carbon Dioxide 29 22 - 31 mMol/L 06/19/2024 4:48 AM [facility] Anion Gap 9 5 - 15 mMol/L 06/19/2024 4:48 AM [facility] Calcium 8.8 8.5 - 10.5 mg/dL 06/19/2024 4:48 AM [facility] Est Glomerular Filtration Rate - Male 61 mL/min/1. 73 m?? 06/19/2024 4:48 AM [facility] Comment: [...] APRN CHEMISTRY ORDERABL ES Performing Organization Address [facility] Co de Phone Number [facility] [place] [address] * POC, GLUCOSE (06/19/2024 12:23 AM EST) Glucometer, POC 82 65 - 199 mg/dL 06/19/2024 12:23 AM EST [facility] Comment:Supplemental ranges: <140 mg/dL before meals <180 mg/dL all other times of the day. Blood CAPILLARY BLOOD / Unknown 06/19/2024 12:23 AM EST 06/19/2024 12:23 AM EST Bobby Loja MD POINT OF CARE TEST O RDERABLES [facility] [place] [address] * POC, GLUCOSE (06/18/2024 11:08 PM EST) Glucometer, POC 73 65 - 199 mg/dL 06/18/2024 11:08 PM EST [facility] Comment:Supplemental ranges: <140 mg/dL before meals <180 mg/dL all other times of the day. Blood CAPILLARY BLOOD / Unknown 06/18/2024 11:08 PM EST 06/18/2024 11:08 PM EST Bobby Loja MD POINT OF CARE TEST O RDBECKIE Performing Organization Address [facility]/ZIP Co de Phone Number [facility] [place] [address] * POC, GLUCOSE (06/18/2024 7:32 PM EST) Glucometer, POC 167 65 - 199 mg/dL 06/18/2024 7:32 PM EST [facility] Comment:Supplemental ranges: <140 mg/dL before meals <180 mg/dL all other times of the day. Blood CAPILLARY BLOOD / Unknown 06/18/2024 7:32 PM EST 06/18/2024 7:32 PM EST Bobby Loja MD POINT OF CARE TEST O NIAK Performing Organization Address [facility] Co de Phone Number [facility] [place] [address] * POC, GLUCOSE (06/18/2024 6:08 PM EST) Glucometer, POC 140 65 - 199 mg/dL 06/18/2024 6:09 PM EST [facility] Comment:Supplemental ranges: <140 mg/dL before meals <180 mg/dL all other times of the day. Blood CAPILLARY BLOOD / Unknown 06/18/2024 6:08 PM EST 06/18/2024 6:09 PM EST Bobby Loja MD POINT OF CARE TEST O NIKA Performing Organization Address City/[facility]/ZIP Co de Phone Number [facility] [place] [address] * POC, GLUCOSE (06/18/2024 4:17 PM EST) Glucometer, POC 144 65 - 199 mg/dL 06/18/2024 4:17 PM EST [facility] Comment:Supplemental ranges: <140 mg/dL before meals <180 mg/dL all other times of the day. Blood CAPILLARY BLOOD / Unknown 06/18/2024 4:17 PM EST 06/18/2024 4:17 PM EST Narrative Authorizing Provider Result Saranya Loja MD POINT OF CARE TEST O NIKA Performing Organization Address [facility] Co de Phone Number [facility] [place] [address] * POC, GLUCOSE (06/18/2024 12:09 PM EST) Glucometer, POC 180 65 - 199 mg/dL 06/18/2024 12:09 PM EST [facility] Comment:Supplemental ranges: <140 mg/dL before meals <180 mg/dL all other times of the day. Blood CAPILLARY BLOOD / Unknown 06/18/2024 12:09 PM EST 06/18/2024 12:09 PM EST Narrative Authorizing Provider Result Saranya Loja MD POINT OF CARE TEST Abimael MAHER Performing Organization Address [facility] Co de Phone Number [facility] [place] [address] * POC, GLUCOSE (06/18/2024 7:49 AM EST) Glucometer, POC 125 65 - 199 mg/dL 06/18/2024 7:50 AM EST [facility] Comment:Supplemental ranges: <140 mg/dL before meals <180 mg/dL all other times of the day. Blood CAPILLARY BLOOD / Unknown 06/18/2024 7:49 AM EST 06/18/2024 7:50 AM EST Narrative Authorizing Provider Result Saranya Loja MD POINT OF CARE TEST Abimael MAHER Performing Organization Address [facility] Co de Phone Number [facility] [place] [address] * (ABNORMAL) Basic Metabolic Panel (06/18/2024 4:19 AM EST) Glucose 103 65 - 199 mg/dL 06/18/2024 5:03 AM EST [facility] Comment:Glucose Concentratio n >=200 mg/dL plus symptoms is consistent with Diabetes Mellitus. Blood Urea Nitrogen 43(H) 10 - 20 mg/dL 06/18/2024 5:03 AM [facility] Creatinine 1.45 0.80 - 1.50 mg/dL 06/18/2024 5:03 AM [facility] Sodium 131(L) 135 - 145 mMol/L 06/18/2024 5:03 AM [facility] Potassium 4.2 3.5 - 5.0 mMol/L 06/18/2024 5:03 AM [facility] Chloride 97(L) 98 - 107 mMol/L 06/18/2024 5:03 AM [facility] Carbon Dioxide 25 22 - 31 mMol/L 06/18/2024 5:03 AM [facility] Anion Gap 9 5 - 15 mMol/L 06/18/2024 5:03 AM [facility] Calcium 8.5 8.5 - 10.5 mg/dL 06/18/2024 5:03 AM [facility] Est Glomerular Filtration Rate - Male 53 mL/min/1. 73 m?? 06/18/2024 5:03 AM [facility] Comment: [...] Performing Organization Address City/[facility] Co de Phone Number [facility] [place] [address] * POC, GLUCOSE (06/18/2024 3:50 AM EST) Glucometer, POC 99 65 - 199 mg/dL 06/18/2024 3:51 AM EST [facility] Comment:Supplemental ranges: <140 mg/dL before meals <180 mg/dL all other times of the day. Blood CAPILLARY BLOOD / Unknown 06/18/2024 3:50 AM EST 06/18/2024 3:51 AM EST Bobby Loja MD POINT OF CARE TEST O NIKA Performing Organization Address [facility] Co de Phone Number [facility] [place] [address] * POC, GLUCOSE (06/17/2024 11:10 PM EST) Glucometer, POC 92 65 - 199 mg/dL 06/17/2024 11:10 PM EST [facility] Comment:Supplemental ranges: <140 mg/dL before meals <180 mg/dL all other times of the day. Blood CAPILLARY BLOOD / Unknown 06/17/2024 11:10 PM EST 06/17/2024 11:10 PM EST Bobby Loja MD POINT OF CARE TEST O NIKA Performing Organization Address [facility] Co de Phone Number [facility] [place] [address] * POC, GLUCOSE (06/17/2024 7:54 PM EST) Glucometer, POC 126 65 - 199 mg/dL 06/17/2024 7:54 PM EST [facility] Comment:Supplemental ranges: <140 mg/dL before meals <180 mg/dL all other times of the day. Blood CAPILLARY BLOOD / Unknown 06/17/2024 7:54 PM EST 06/17/2024 7:54 PM EST Bobby Loja MD POINT OF CARE TEST O RDERAPIETER Performing Organization Address [facility] de Phone Number [facility] [place] [address] * POC, GLUCOSE (06/17/2024 4:07 PM EST) Glucometer, POC 141 65 - 199 mg/dL 06/17/2024 4:12 PM EST [facility] Comment:Supplemental ranges: <140 mg/dL before meals <180 mg/dL all other times of the day. Blood CAPILLARY BLOOD / Unknown 06/17/2024 4:07 PM EST 06/17/2024 4:12 PM EST Bobby Loja MD POINT OF CARE TEST O RALPHERAPIETER Performing Organization Address [facility] de Phone Number [facility] [place] [address] * XR Chest PA & Lateral (Generic) (06/17/2024 1:46 PM EST) WORKSTATION ID [id number] DH RAD Anatomical Region Laterality Modality Chest [...] who have questions please contact the health palliative care specialist that requested your imaging first. ? Electronically signed by: Josselyn Bebe, MD, [facility] ([phone]), at 06/17/2024 4:49 PM Narrative 06/17/2024 4:49 [...] patients who have questions please contactthe health palliative care specialist that requested your imaging first. Electronically signed by: Josselyn Spence MD, [facility]([phone]), at 06/17/2024 4:49 PM Keila Hanley APRN IMG DX ORDERABLES * (ABNORMAL) POC, GLUCOSE (06/17/2024 11:04 AM EST) [facility] Glucometer, POC 245(H) 65 - 199 mg/dL 06/17/2024 11:04 AM EST [facility] Comment:Supplemental ranges: <140 mg/dL before meals <180 mg/dL all other times of the day. Blood CAPILLARY BLOOD / Unknown 06/17/2024 11:04 AM EST 06/17/2024 11:04 AM EST Bobby Loja MD POINT OF CARE TEST O NIKA Performing Organization Address City/[facility] Co de Phone Number [facility] [place] [address] * POC, GLUCOSE (06/17/2024 7:49 AM EST) Glucometer, POC 141 65 - 199 mg/dL 06/17/2024 7:55 AM EST [facility] Comment:Supplemental ranges: <140 mg/dL before meals <180 mg/dL all other times of the day. Blood CAPILLARY BLOOD / Unknown 06/17/2024 7:49 AM EST 06/17/2024 7:55 AM EST Bobby Loja MD POINT OF CARE TEST Abimael MAHER Performing Organization Address [facility] Co de Phone Number [facility] [place] [address] * POC, GLUCOSE (06/17/2024 4:16 AM EST) Glucometer, POC 139 65 - 199 mg/dL 06/17/2024 4:16 AM EST [facility] Comment:Supplemental ranges: <140 mg/dL before meals <180 mg/dL all other times of the day. Blood CAPILLARY BLOOD / Unknown 06/17/2024 4:16 AM EST 06/17/2024 4:17 AM EST Narrative Authorizing Provider Result Saranya Loja MD POINT OF CARE TEST O NIKA Performing Organization Address City/[facility] Co de Phone Number [facility] [place] [address] * Lactate, Whole Blood (06/17/2024 2:39 AM EST) Lactate, Whole Blood 1.3 0.5 - 2.2 mmol/L 06/17/2024 2:46 AM EST [facility] Blood VENOUS BLOOD SPECIMEN / Unknown Venipuncture / Unknown 06/17/2024 2:39 AM EST 06/17/2024 2:43 AM EST Bobby Loja MD CHEMISTRY ORDERABLES [facility] [place] [address] * (ABNORMAL) Hemogram (06/17/2024 2:39 AM EST) White Blood Cell 13.53(H) 4.00 - 9.50 x10(3)/mc L 06/17/2024 2:53 AM [facility] Red Blood Cell 3.55(L) 4.58 - 5.54 x10(6)/mc L 06/17/2024 2:53 AM [facility] Hemoglobin 10.8(L) 13.7 - 16.5 g/dL 06/17/2024 2:53 AM [facility] Hematocrit 33.0(L) 40.5 - 48.5 % 06/17/2024 2:53 AM [facility] Mean Cell Volume 93.0 82.9 - 93.1 fL 06/17/2024 2:53 AM [facility] Mean Cell Hemoglobin 30.4 27.5 - 32.1 pg 06/17/2024 2:53 AM [facility] Mean Cell Hemoglobin Concentration 32.7 32.0 - 35.7 g/dL 06/17/2024 2:53 AM [facility] Platelet 101(L) 145 - 357 x10(3)/mc L 06/17/2024 2:53 AM [facility] Mean Platelet Volume 10.4 7.6 - 12.9 fL 06/17/2024 2:53 AM [facility] RDW Standard Deviation 48.4(H) 36.0 - 45.0 fL 06/17/2024 2:53 AM [facility] RDW coefficient of variation 14.1(H) 11.4 - 13.8 % 06/17/2024 2:53 AM [facility] NRBC% auto 0.0 % 06/17/2024 2:53 AM [facility] NRBC Absolute <0.01 <0.01 x10(3)/mc L 06/17/2024 2:53 AM [facility] Blood VENOUS BLOOD SPECIMEN / Unknown Venipuncture / Unknown 06/17/2024 2:39 AM EST 06/17/2024 2:43 AM EST Bobby Loja MD HEMATOLOGY ORDERABLE S [facility] [place] [id number] * (ABNORMAL) Basic Metabolic Panel (06/17/2024 2:39 AM EST) Glucose 149 65 - 199 mg/dL 06/17/2024 3:14 AM [facility] Comment:Glucose Concentratio n >=200 mg/dL plus symptoms is consistent with Diabetes Mellitus. Blood Urea Nitrogen 42(H) 10 - 20 mg/dL 06/17/2024 3:14 AM [facility] Creatinine 1.52(H) 0.80 - 1.50 mg/dL 06/17/2024 3:14 AM [facility] Sodium 133(L) 135 - 145 mMol/L 06/17/2024 3:14 AM [facility] Potassium 4.5 3.5 - 5.0 mMol/L 06/17/2024 3:14 AM [facility] Chloride 101 98 - 107 mMol/L 06/17/2024 3:14 AM [facility] Carbon Dioxide 23 22 - 31 mMol/L 06/17/2024 3:14 AM [facility] Anion Gap 9 5 - 15 mMol/L 06/17/2024 3:14 AM EST [facility] Calcium 8.8 8.5 - 10.5 mg/dL 06/17/2024 3:14 AM EST [facility] Est Glomerular Filtration Rate - Male 50 mL/min/1. 73 m?? 06/17/2024 3:14 AM EST [facility] [...] Loja MD CHEMISTRY ORDERABLES Performing Organization Address [facility]/ZIP Co de Phone Number [facility] [place] [address] * (ABNORMAL) POC, GLUCOSE (06/17/2024 12:13 AM EST) [facility] Signature Glucometer, POC 211(H) 65 - 199 mg/dL 06/17/2024 12:13 AM EST [facility] Comment:Supplemental ranges: <140 mg/dL before meals <180 mg/dL all other times of the day. Blood CAPILLARY BLOOD / Unknown 06/17/2024 12:13 AM EST 06/17/2024 12:14 AM EST Bobby Loja MD POINT OF CARE TEST O RDERABLES Performing Organization Address City/[facility]/ZIP Co de Phone Number [facility] [place] [address] * (ABNORMAL) POC, GLUCOSE (06/16/2024 7:22 PM EST) Glucometer, POC 229(H) 65 - 199 mg/dL 06/16/2024 7:22 PM EST [facility] Comment:Supplemental ranges: <140 mg/dL before meals <180 mg/dL all other times of the day. Blood CAPILLARY BLOOD / Unknown 06/16/2024 7:22 PM EST 06/16/2024 7:22 PM EST Bobby Loja MD POINT OF CARE TEST O RDERABLES [facility] [place] [address] * (ABNORMAL) POC, GLUCOSE (06/16/2024 6:14 PM EST) Glucometer, POC 220(H) 65 - 199 mg/dL 06/16/2024 6:14 PM EST [facility] Comment:Supplemental ranges: <140 mg/dL before meals <180 mg/dL all other times of the day. Blood CAPILLARY BLOOD / Unknown 06/16/2024 6:14 PM EST 06/16/2024 6:14 PM EST Narrative Authorizing Provider Result Saranya Loja MD POINT OF CARE TEST O RDERABLES Performing Organization Address City/[facility]/ZIP Co de Phone Number [facility] [place] [address] * Lactate, Whole Blood (06/16/2024 6:14 PM EST) Lactate, Whole Blood 1.8 0.5 - 2.2 mmol/L 06/16/2024 6:27 PM EST [facility] Blood VENOUS BLOOD SPECIMEN / Unknown Venipuncture / Unknown 06/16/2024 6:14 PM EST 06/16/2024 6:25 PM EST Narrative Authorizing Provider Result Saranya Loja MD CHEMISTRY ORDERABLES [facility] [place] [address] * (ABNORMAL) POC, GLUCOSE (06/16/2024 4:14 PM EST) Glucometer, POC 240(H) 65 - 199 mg/dL 06/16/2024 4:14 PM EST [facility] Comment:Supplemental ranges: <140 mg/dL before meals <180 mg/dL all other times of the day. Blood CAPILLARY BLOOD / Unknown 06/16/2024 4:14 PM EST 06/16/2024 4:14 PM EST Bobby Loja MD POINT OF CARE TEST O NIKA Performing Organization Address City/[facility]/ZIP Co de Phone Number [facility] [place] [address] * POC, GLUCOSE (06/16/2024 11:49 AM EST) Glucometer, POC 199 65 - 199 mg/dL 06/16/2024 11:49 AM EST [facility] Comment:Supplemental ranges: <140 mg/dL before meals <180 mg/dL all other times of the day. Blood CAPILLARY BLOOD / Unknown 06/16/2024 11:49 AM EST 06/16/2024 11:49 AM EST Bobby Loja MD POINT OF CARE TEST O NIKA Performing Organization Address City/[facility]/ZIP Co de Phone Number [facility] [place] [address] * (ABNORMAL) Hemogram (06/16/2024 11:44 AM EST) White Blood Cell 17.91(H) 4.00 - 9.50 x10(3)/mc L 06/16/2024 12:25 PM EST [facility] Red Blood Cell 3.47(L) 4.58 - 5.54 x10(6)/mc L 06/16/2024 12:25 PM EST [facility] Hemoglobin 10.5(L) 13.7 - 16.5 g/dL 06/16/2024 12:25 PM [facility] Hematocrit 33.1(L) 40.5 - 48.5 % 06/16/2024 12:25 PM [facility] Mean Cell Volume 95.4(H) 82.9 - 93.1 fL 06/16/2024 12:25 PM [facility] Mean Cell Hemoglobin 30.3 27.5 - 32.1 pg 06/16/2024 12:25 PM [facility] Mean Cell Hemoglobin Concentration 31.7(L) 32.0 - 35.7 g/dL 06/16/2024 12:25 PM [facility] Platelet 101(L) 145 - 357 x10(3)/mc L 06/16/2024 12:25 PM [facility] Mean Platelet Volume 10.6 7.6 - 12.9 fL 06/16/2024 12:25 PM [facility] RDW Standard Deviation 49.5(H) 36.0 - 45.0 fL 06/16/2024 12:25 PM [facility] RDW coefficient of variation 14.2(H) 11.4 - 13.8 % 06/16/2024 12:25 PM [facility] NRBC% auto 0.0 % 06/16/2024 12:25 PM [facility] NRBC Absolute <0.01 <0.01 x10(3)/mc L 06/16/2024 12:25 PM [facility] Blood VENOUS BLOOD SPECIMEN / Unknown Venipuncture / Unknown 06/16/2024 11:44 AM EST 06/16/2024 12:03 PM EST Bobby Loja MD HEMATOLOGY ORDERABLE S [facility] [place] [address] * Lactate, Whole Blood (06/16/2024 9:02 AM EST) Lactate, Whole Blood 1.8 0.5 - 2.2 mmol/L 06/16/2024 9:19 AM EST [facility] Blood VENOUS BLOOD SPECIMEN / Unknown Venipuncture / Unknown 06/16/2024 9:02 AM EST 06/16/2024 9:17 AM EST Bobby Loja MD CHEMISTRY ORDERABLES [facility] [place] [address] * POC, GLUCOSE (06/16/2024 7:44 AM EST) Glucometer, POC 129 65 - 199 mg/dL 06/16/2024 7:44 AM EST [facility] Comment:Supplemental ranges: <140 mg/dL before meals <180 mg/dL all other times of the day. Blood CAPILLARY BLOOD / Unknown 06/16/2024 7:44 AM EST 06/16/2024 7:44 AM EST Bobby Loja MD POINT OF CARE TEST O RDERABLES Performing Organization Address City/[facility]/ZIP Co de Phone Number [facility] [place] [address] * POC, GLUCOSE (06/16/2024 4:01 AM EST) Glucometer, POC 158 65 - 199 mg/dL 06/16/2024 4:01 AM EST [facility] Comment:Supplemental ranges: <140 mg/dL before meals <180 mg/dL all other times of the day. Blood CAPILLARY BLOOD / Unknown 06/16/2024 4:01 AM EST 06/16/2024 4:01 AM EST Narrative Authorizing Provider Result Saranya Loja MD POINT OF CARE TEST O RDERABLES [facility] [place] [address] * (ABNORMAL) Basic Metabolic Panel (06/16/2024 2:23 AM EST) Glucose 177 65 - 199 mg/dL 06/16/2024 3:13 AM [facility] Comment:Glucose Concentratio n >=200 mg/dL plus symptoms is consistent with Diabetes Mellitus. Blood Urea Nitrogen 37(H) 10 - 20 mg/dL 06/16/2024 3:13 AM [facility] Creatinine 2.10(H) 0.80 - 1.50 mg/dL 06/16/2024 3:13 AM [facility] Sodium 132(L) 135 - 145 mMol/L 06/16/2024 3:13 AM [facility] Potassium 4.5 3.5 - 5.0 mMol/L 06/16/2024 3:13 AM [facility] Chloride 99 98 - 107 mMol/L 06/16/2024 3:13 AM [facility] Carbon Dioxide 22 22 - 31 mMol/L 06/16/2024 3:13 AM [facility] Anion Gap 11 5 - 15 mMol/L 06/16/2024 3:13 AM [facility] Calcium 9.0 8.5 - 10.5 mg/dL 06/16/2024 3:13 AM [facility] Est Glomerular Filtration Rate - Male 34 mL/min/1. 73 m?? 06/16/2024 3:13 AM [facility] Comment: [...] Loja MD CHEMISTRY ORDERABLES Performing Organization Address [facility] Co de Phone Number [facility] [place] [address] * POC, GLUCOSE (06/16/2024 2:21 AM EST) Glucometer, POC 176 65 - 199 mg/dL 06/16/2024 2:31 AM EST [facility] Comment:Supplemental ranges: <140 mg/dL before meals <180 mg/dL all other times of the day. Blood CAPILLARY BLOOD / Unknown 06/16/2024 2:21 AM EST 06/16/2024 2:31 AM EST Bobby Loja MD POINT OF CARE TEST O RDERABLES Performing Organization Address [facility] Co de Phone Number [facility] [place] [address] * (ABNORMAL) POC, GLUCOSE (06/16/2024 12:09 AM EST) Glucometer, POC 222(H) 65 - 199 mg/dL 06/16/2024 12:09 AM EST [facility] Comment:Supplemental ranges: <140 mg/dL before meals <180 mg/dL all other times of the day. Blood CAPILLARY BLOOD / Unknown 06/16/2024 12:09 AM EST 06/16/2024 12:09 AM EST Bobby Loja MD POINT OF CARE TEST O RDBECKIE Performing Organization Address [facility] Co de Phone Number [facility] [place] [address] * (ABNORMAL) POC, GLUCOSE (06/15/2024 10:07 PM EST) Glucometer, POC 320(H) 65 - 199 mg/dL 06/15/2024 10:07 PM EST [facility] Comment:Supplemental ranges: <140 mg/dL before meals <180 mg/dL all other times of the day. Blood CAPILLARY BLOOD / Unknown 06/15/2024 10:07 PM EST 06/15/2024 10:07 PM EST Bobby Loja MD POINT OF CARE TEST O NIKA Performing Organization Address City/[facility]/ZIP Co de Phone Number [facility] [place] [address] * (ABNORMAL) POC, GLUCOSE (06/15/2024 7:56 PM EST) Glucometer, POC 304(H) 65 - 199 mg/dL 06/15/2024 7:56 PM EST [facility] Comment:Supplemental ranges: <140 mg/dL before meals <180 mg/dL all other times of the day. Blood CAPILLARY BLOOD / Unknown 06/15/2024 7:56 PM EST 06/15/2024 7:56 PM EST Bobby Loja MD POINT OF CARE TEST O NIKA Performing Organization Address [facility] Co de Phone Number [facility] [place] [address] * (ABNORMAL) POC, GLUCOSE (06/15/2024 7:52 PM EST) Glucometer, POC 288(H) 65 - 199 mg/dL 06/15/2024 7:52 PM EST [facility] Comment:Supplemental ranges: <140 mg/dL before meals <180 mg/dL all other times of the day. Blood CAPILLARY BLOOD / Unknown 06/15/2024 7:52 PM EST 06/15/2024 7:52 PM EST Narrative Authorizing Provider Result Saranya Loja MD POINT OF CARE TEST O NIKA Performing Organization Address City/[facility]/ZIP Co de Phone Number [facility] [place] [address] * POC, GLUCOSE (06/15/2024 4:21 PM EST) Glucometer, POC 192 65 - 199 mg/dL 06/15/2024 4:21 PM EST [facility] Comment:Supplemental ranges: <140 mg/dL before meals <180 mg/dL all other times of the day. Blood CAPILLARY BLOOD / Unknown 06/15/2024 4:21 PM EST 06/15/2024 4:21 PM EST Bobby Loja MD POINT OF CARE TEST O NIKA Performing Organization Address City/[facility]/ZIP Co de Phone Number [facility] [place] [address] * POC, GLUCOSE (06/15/2024 3:27 PM EST) Glucometer, POC 155 65 - 199 mg/dL 06/15/2024 3:27 PM EST [facility] Comment:Supplemental ranges: <140 mg/dL before meals <180 mg/dL all other times of the day. Blood CAPILLARY BLOOD / Unknown 06/15/2024 3:27 PM EST 06/15/2024 3:27 PM EST Bobby Loja MD POINT OF CARE TEST O NIKA Performing Organization Address [facility] Co de Phone Number [facility] [place] [address] * POC, GLUCOSE (06/15/2024 2:23 PM EST) Glucometer, POC 160 65 - 199 mg/dL 06/15/2024 2:23 PM EST [facility] Comment:Supplemental ranges: <140 mg/dL before meals <180 mg/dL all other times of the day. Blood CAPILLARY BLOOD / Unknown 06/15/2024 2:23 PM EST 06/15/2024 2:23 PM EST Bobby Loja MD POINT OF CARE TEST O NIKA Performing Organization Address City/[facility]/ZIP Co de Phone Number [facility] [place] [address] * POC, GLUCOSE (06/15/2024 1:26 PM EST) Glucometer, POC 167 65 - 199 mg/dL 06/15/2024 1:26 PM EST [facility] Comment:Supplemental ranges: <140 mg/dL before meals <180 mg/dL all other times of the day. Blood CAPILLARY BLOOD / Unknown 06/15/2024 1:26 PM EST 06/15/2024 1:26 PM EST Bobby Loja MD POINT OF CARE TEST O NIKA Performing Organization Address [facility] Co de Phone Number [facility] [place] [address] * (ABNORMAL) POC, GLUCOSE (06/15/2024 12:55 PM EST) Glucometer, POC 210(H) 65 - 199 mg/dL 06/15/2024 12:55 PM EST [facility] Comment:Supplemental ranges: <140 mg/dL before meals <180 mg/dL all other times of the day. Blood CAPILLARY BLOOD / Unknown 06/15/2024 12:55 PM EST 06/15/2024 12:55 PM EST Bobby Loja MD POINT OF CARE TEST O NIKA Performing Organization Address [facility] Co de Phone Number [facility] [place] [address] * (ABNORMAL) POC, GLUCOSE (06/15/2024 11:29 AM EST) Glucometer, POC 220(H) 65 - 199 mg/dL 06/15/2024 11:29 AM EST [facility] Comment:Supplemental ranges: <140 mg/dL before meals <180 mg/dL all other times of the day. Blood CAPILLARY BLOOD / Unknown 06/15/2024 11:29 AM EST 06/15/2024 11:29 AM EST Bobby Loja MD POINT OF CARE TEST O RDERABLES [facility] [place] [place] [address] * (ABNORMAL) Basic Metabolic Panel (06/15/2024 11:23 AM EST) Glucose 215(H) 65 - 199 mg/dL 06/15/2024 12:08 PM EST [facility] Comment:Glucose Concentratio n >=200 mg/dL plus symptoms is consistent with Diabetes Mellitus. Blood Urea Nitrogen 24(H) 10 - 20 mg/dL 06/15/2024 12:08 PM [facility] Creatinine 1.54(H) 0.80 - 1.50 mg/dL 06/15/2024 12:08 PM [facility] Sodium 135 135 - 145 mMol/L 06/15/2024 12:08 PM [facility] Potassium 4.5 3.5 - 5.0 mMol/L 06/15/2024 12:08 PM [facility] Chloride 105 98 - 107 mMol/L 06/15/2024 12:08 PM [facility] Carbon Dioxide 19(L) 22 - 31 mMol/L 06/15/2024 12:08 PM [facility] Anion Gap 11 5 - 15 mMol/L 06/15/2024 12:08 PM [facility] Calcium 8.3(L) 8.5 - 10.5 mg/dL 06/15/2024 12:08 PM [facility] Est Glomerular Filtration Rate - Male 49 mL/min/1. 73 m?? 06/15/2024 12:08 PM [facility] Comment: This [...] Provider Result Saranya Loja MD CHEMISTRY ORDERABLES [facility] [place] [address] * POC, GLUCOSE (06/15/2024 10:29 AM EST) Glucometer, POC 189 65 - 199 mg/dL 06/15/2024 10:29 AM EST [facility] Comment:Supplemental ranges: <140 mg/dL before meals <180 mg/dL all other times of the day. Blood CAPILLARY BLOOD / Unknown 06/15/2024 10:29 AM EST 06/15/2024 10:29 AM EST Bobby Loja MD POINT OF CARE TEST O RDERABLES Performing Organization Address City/[facility]/ZIP Co de Phone Number [facility] [place] [place] [address] * POC, GLUCOSE (06/15/2024 9:45 AM EST) Glucometer, POC 178 65 - 199 mg/dL 06/15/2024 9:45 AM EST [facility] Comment:Supplemental ranges: <140 mg/dL before meals <180 mg/dL all other times of the day. Blood CAPILLARY BLOOD / Unknown 06/15/2024 9:45 AM EST 06/15/2024 9:45 AM EST Narrative Authorizing Provider Result Saranya Loja MD POINT OF CARE TEST O RDERABLES [facility] [place] [address] * (ABNORMAL) Cooximetry, POC (06/15/2024 9:31 AM EST) pO2, Coox 38 mmHg 06/15/2024 9:34 AM [facility] Hemoglobin, Coox 12.9(L) 13.7 - 16.5 g/dL 06/15/2024 9:34 AM [facility] Oxyhemoglobin, Coox 72.1 % 06/15/2024 9:34 AM [facility] Carboxyhemoglo bin, Coox 0.9 % 06/15/2024 9:34 AM [facility] Comment: Nonsmokers: 0.5-1.5% COHB ?? Smokers: Variable ??but usually less than 10% ?? Toxic: 20-30% COHB ?? Lethal: Greater than 60% COHB Methemoglobin, Coox 0.3 <=1.5 % 06/15/2024 9:34 AM [facility] Blood (Mixed Venous) 06/15/2024 9:31 AM EST 06/15/2024 9:34 AM EST Bobby Loja MD POINT OF CARE TEST O RDERABLES [facility] [place] [address] * Cooximetry, POC (06/15/2024 9:22 AM EST) pO2, Coox 30 mmHg 06/15/2024 9:25 AM [facility] Hemoglobin, Coox 06/15/2024 9:25 AM [facility] Comment:QUES Oxyhemoglobin, Coox 06/15/2024 9:25 AM [facility] Comment:QUES Carboxyhemoglo bin, Coox 06/15/2024 9:25 AM [facility] Comment:QUES Methemoglobin, Coox 06/15/2024 9:25 AM [facility] Comment:QUES Blood (Mixed Venous) 06/15/2024 9:22 AM EST 06/15/2024 9:25 AM EST Bobby Loja MD POINT OF CARE TEST O RDERABLES [facility] [place] [address] * (ABNORMAL) Blood Gas, Arterial POC (06/15/2024 9:19 AM EST) pH, Arterial 7.31(L) 7.35 - 7.45 06/15/2024 9:21 AM [facility] PCO2, Arterial 36 35 - 45 mmHg 06/15/2024 9:21 AM [facility] PO2, Arterial 94 85 - 104 mmHg 06/15/2024 9:21 AM [facility] Bicarbonate, Arterial 18.0(L) 20.0 - 26.0 mmol/L 06/15/2024 9:21 AM [facility] Base Excess, Arterial -8.2(L) -3.0 - 3.0 mmol/L 06/15/2024 9:21 AM [facility] Hemoglobin, Arterial 12.7(L) 13.7 - 16.5 g/dL 06/15/2024 9:21 AM [facility] Oxyhemoglobin, Arterial 96.0 94.0 - 97.0 % 06/15/2024 9:21 AM [facility] Carboxyhemoglobin , Arterial 0.5 % 06/15/2024 9:21 AM [facility] Comment: Nonsmokers: 0.5-1.5% COHB ?? Smokers: Variable ??but usually less than 10% ?? Toxic: 20-30% COHB ?? Lethal: Greater than 60% COHB Methemoglobin, Arterial 0.3 <=1.5 % 06/15/2024 9:21 AM [facility] Sodium, Arterial 136 135 - 145 mmol/L 06/15/2024 9:21 AM [facility] Potassium, Arterial 4.0 3.5 - 5.0 mmol/L 06/15/2024 9:21 AM [facility] Chloride, Arterial 106 98 - 107 mmol/L 06/15/2024 9:21 AM [facility] Lactate, Arterial 1.7 0.5 - 2.2 mmol/L 06/15/2024 9:21 AM [facility] Flow Rate 2.0 L/min 06/15/2024 9:21 AM [facility] IONIZED CALCIUM, ARTERIAL 1.14(L) 1.15 - 1.33 mmol/L 06/15/2024 9:21 AM [facility] Glucose, Arterial 193 65 - 199 mg/dL 06/15/2024 9:21 AM [facility] Comment:Glucose Concentratio n >=200 mg/dL plus symptoms is consistent with Diabetes Mellitus. Blood ARTERIAL BLOOD / Unknown 06/15/2024 9:19 AM EST 06/15/2024 9:20 AM EST Bobby Loja MD POINT OF CARE TEST O NIKA Performing Organization Address City/[facility]/ZIP Co de Phone Number [facility] [place] [address] * (ABNORMAL) POC, GLUCOSE (06/15/2024 8:37 AM EST) Glucometer, POC 204(H) 65 - 199 mg/dL 06/15/2024 8:37 AM [facility] Comment:Supplemental ranges: <140 mg/dL before meals <180 mg/dL all other times of the day. Blood CAPILLARY BLOOD / Unknown 06/15/2024 8:37 AM EST 06/15/2024 8:37 AM EST Bobby Loja MD POINT OF CARE TEST O NIKA [facility] [place] [address] * POC, GLUCOSE (06/15/2024 7:37 AM EST) Glucometer, POC 199 65 - 199 mg/dL 06/15/2024 7:37 AM EST [facility] Comment:Supplemental ranges: <140 mg/dL before meals <180 mg/dL all other times of the day. Blood CAPILLARY BLOOD / Unknown 06/15/2024 7:37 AM EST 06/15/2024 7:38 AM EST Bobby Loja MD POINT OF CARE TEST O NIKA Performing Organization Address [facility] de Phone Number [facility] [place] [address] * (ABNORMAL) POC, GLUCOSE (06/15/2024 7:01 AM EST) Glucometer, POC 203(H) 65 - 199 mg/dL 06/15/2024 7:01 AM EST [facility] Comment:Supplemental ranges: <140 mg/dL before meals <180 mg/dL all other times of the day. Blood CAPILLARY BLOOD / Unknown 06/15/2024 7:01 AM EST 06/15/2024 7:01 AM EST Bobby Loja MD POINT OF CARE TEST Abimael MAHER Performing Organization Address [facility] de Phone Number [facility] [place] [address] * XR Chest One View (06/15/2024 6:31 AM EST) WORKSTATION ID [id number] RAD Anatomical Region Laterality Modality Chest N/A [...] who have questions please contact the health palliative care specialist that requested your imaging first. ? Electronically signed by: Stuart Aponte MD, [facility] ??([phone]), at 06/15/2024 10:38 AM Narrative 06/15/2024 10:38 [...] patients who have questions please contactthe health palliative care specialist that requested your imaging first. Electronically signed by: Stuart Aponte MD, [facility]([phone]), at 06/15/2024 10:38 AM Bobby Loja MD IMG DX ORDERABLES * POC, GLUCOSE (06/15/2024 6:02 AM EST) Glucometer, POC 179 65 - 199 mg/dL 06/15/2024 6:02 AM EST [facility] Comment:Supplemental ranges: <140 mg/dL before meals <180 mg/dL all other times of the day. Blood CAPILLARY BLOOD / Unknown 06/15/2024 6:02 AM EST 06/15/2024 6:02 AM EST Bobby Loja MD POINT OF CARE TEST O NIKA Performing Organization Address City/[facility]/ZIP Co de Phone Number [facility] [place] [place] [address] * POC, GLUCOSE (06/15/2024 5:06 AM EST) Glucometer, POC 160 65 - 199 mg/dL 06/15/2024 5:06 AM EST [facility] Comment:Supplemental ranges: <140 mg/dL before meals <180 mg/dL all other times of the day. Blood CAPILLARY BLOOD / Unknown 06/15/2024 5:06 AM EST 06/15/2024 5:06 AM EST Bobby Loja MD POINT OF CARE TEST O NIKA Performing Organization Address City/[facility]/ZIP Co de Phone Number [facility] [place] [place] [address] * POC, GLUCOSE (06/15/2024 4:05 AM EST) Glucometer, POC 160 65 - 199 mg/dL 06/15/2024 4:06 AM EST [facility] Comment:Supplemental ranges: <140 mg/dL before meals <180 mg/dL all other times of the day. Blood CAPILLARY BLOOD / Unknown 06/15/2024 4:05 AM EST 06/15/2024 4:06 AM EST Bobby Loja MD POINT OF CARE TEST O NIKA [facility] [place] [address] * POC, GLUCOSE (06/15/2024 3:07 AM EST) Glucometer, POC 151 65 - 199 mg/dL 06/15/2024 3:07 AM EST [facility] Comment:Supplemental ranges: <140 mg/dL before meals <180 mg/dL all other times of the day. Blood CAPILLARY BLOOD / Unknown 06/15/2024 3:07 AM EST 06/15/2024 3:07 AM EST Bobby Loja MD POINT OF CARE TEST O RDERABLES [facility] [place] [address] * (ABNORMAL) Basic Metabolic Panel (06/15/2024 1:48 AM EST) Glucose 140 65 - 199 mg/dL 06/15/2024 2:38 AM EST [facility] Comment:Glucose Concentratio n >=200 mg/dL plus symptoms is consistent with Diabetes Mellitus. Blood Urea Nitrogen 21(H) 10 - 20 mg/dL 06/15/2024 2:38 AM [facility] Creatinine 1.27 0.80 - 1.50 mg/dL 06/15/2024 2:38 AM [facility] Sodium 140 135 - 145 mMol/L 06/15/2024 2:38 AM [facility] Potassium 4.4 3.5 - 5.0 mMol/L 06/15/2024 2:38 AM [facility] Chloride 108(H) 98 - 107 mMol/L 06/15/2024 2:38 AM [facility] Carbon Dioxide 23 22 - 31 mMol/L 06/15/2024 2:38 AM [facility] Anion Gap 9 5 - 15 mMol/L 06/15/2024 2:38 AM [facility] Calcium 8.3(L) 8.5 - 10.5 mg/dL 06/15/2024 2:38 AM EST [facility] Est Glomerular Filtration Rate - Male 62 mL/min/1. 73 m?? 06/15/2024 2:38 AM [facility] Comment: [...] AM EST Bobby Loja MD CHEMISTRY ORDERABLES [facility] [place] [address] * (ABNORMAL) CBC (with Diff) (06/15/2024 1:48 AM EST) White Blood Cell 11.71(H) 4.00 - 9.50 x10(3)/mc L 06/15/2024 2:13 AM EST [facility] Red Blood Cell 4.14(L) 4.58 - 5.54 x10(6)/mc L 06/15/2024 2:13 AM EST [facility] Hemoglobin 12.5(L) 13.7 - 16.5 g/dL 06/15/2024 2:13 AM [facility] Hematocrit 38.4(L) 40.5 - 48.5 % 06/15/2024 2:13 AM EST [facility] Mean Cell Volume 92.8 82.9 - 93.1 fL 06/15/2024 2:13 AM [facility] Mean Cell Hemoglobin 30.2 27.5 - 32.1 pg 06/15/2024 2:13 AM [facility] Mean Cell Hemoglobin Concentration 32.6 32.0 - 35.7 g/dL 06/15/2024 2:13 AM [facility] Platelet 101(L) 145 - 357 x10(3)/mc L 06/15/2024 2:13 AM [facility] Mean Platelet Volume 10.0 7.6 - 12.9 fL 06/15/2024 2:13 AM [facility] RDW Standard Deviation 48.8(H) 36.0 - 45.0 fL 06/15/2024 2:13 AM [facility] RDW coefficient of variation 14.2(H) 11.4 - 13.8 % 06/15/2024 2:13 AM [facility] NRBC% auto 0.0 % 06/15/2024 2:13 AM [facility] NRBC Absolute <0.01 <0.01 x10(3)/mc L 06/15/2024 2:13 AM [facility] Neutrophil % 79.7 % 06/15/2024 2:13 AM [facility] Neutrophil Absolute (ANC) - Automated 9.34(H) 1.70 - 6.10 x10(3)/mc L 06/15/2024 2:13 AM [facility] Lymph % 8.0 % 06/15/2024 2:13 AM [facility] Lymph Absolute 0.94 0.90 - 3.20 x10(3)/mc L 06/15/2024 2:13 AM [facility] Monocyte % 11.4 % 06/15/2024 2:13 AM [facility] Monocyte Absolute 1.33(H) 0.30 - 0.90 x10(3)/mc L 06/15/2024 2:13 AM [facility] Eos % 0.2 % 06/15/2024 2:13 AM EST [facility] Eos Absolute <0.04 0.00 - 0.40 x10(3)/mc L 06/15/2024 2:13 AM EST [facility] Basophil % 0.2 % 06/15/2024 2:13 AM EST [facility] Baso Absolute <0.04 0.00 - 0.10 x10(3)/mc L 06/15/2024 2:13 AM EST [facility] Immature Gran % 0.5 % 2:13 AM EST [facility] Immature Gran Absolute 0.06(H) 0.00 - 0.04 x10(3)/mc L 06/15/2024 2:13 AM EST [facility] Blood VENOUS BLOOD SPECIMEN / Unknown Venipuncture / Unknown 06/15/2024 1:48 AM EST 06/15/2024 1:52 AM EST Bobby Loja MD HEMATOLOGY ORDERABLE S [facility] [place] [id number] * (ABNORMAL) Troponin - Single (06/15/2024 1:48 AM EST) Troponin-T, High Sensitivity 667(H) <=22 ng/L 06/15/2024 2:22 AM EST [facility] [...] troponin value can be found in the [facility] Test Catalog Troponin - [email or web address] Reference: Fourth [place] Definition of Myocardial Infarction. Journal of the [place] [employer] 2018;72:1810-1861 Blood VENOUS BLOOD SPECIMEN / Unknown Venipuncture / Unknown 06/15/2024 1:48 AM EST 06/15/2024 1:52 AM EST Bobby Loja MD CHEMISTRY ORDERABLES [facility] [place] [address] * (ABNORMAL) Blood Gas, Arterial POC (06/15/2024 1:46 AM EST) pH, Arterial 7.33(L) 7.35 - 7.45 06/15/2024 1:47 AM EST [facility] PCO2, Arterial 40 35 - 45 mmHg 06/15/2024 1:47 AM [facility] PO2, Arterial 131(H) 85 - 104 mmHg 06/15/2024 1:47 AM [facility] Bicarbonate, Arterial 20.7 20.0 - 26.0 mmol/L 06/15/2024 1:47 AM EST [facility] Base Excess, Arterial -5.2(L) -3.0 - 3.0 mmol/L 06/15/2024 1:47 AM EST [facility] Hemoglobin, Arterial 13.4(L) 13.7 - 16.5 g/dL 06/15/2024 1:47 AM [facility] Oxyhemoglobin, Arterial 97.9(H) 94.0 - 97.0 % 06/15/2024 1:47 AM EST [facility] Carboxyhemoglobin , Arterial 0.5 % 06/15/2024 1:47 AM EST [facility] Comment: Nonsmokers: 0.5-1.5% COHB ?? Smokers: Variable ??but usually less than 10% ?? Toxic: 20-30% COHB ?? Lethal: Greater than 60% COHB Methemoglobin, Arterial 0.3 <=1.5 % 06/15/2024 1:47 AM [facility] Sodium, Arterial 139 135 - 145 mmol/L 06/15/2024 1:47 AM [facility] Potassium, Arterial 4.2 3.5 - 5.0 mmol/L 06/15/2024 1:47 AM [facility] Chloride, Arterial 107 98 - 107 mmol/L 06/15/2024 1:47 AM [facility] Lactate, Arterial 1.8 0.5 - 2.2 mmol/L 06/15/2024 1:47 AM [facility] Fraction of Inspired Oxygen 40 % 06/15/2024 1:47 AM [facility] PF Ratio 328 Ratio 06/15/2024 1:47 AM [facility] Comment:PF ratio calculated using the non-temperature corrected pO2 result. IONIZED CALCIUM, ARTERIAL 1.17 1.15 - 1.33 mmol/L 06/15/2024 1:47 AM [facility] Glucose, Arterial 127 65 - 199 mg/dL 06/15/2024 1:47 AM [facility] Comment:Glucose Concentratio n >=200 mg/dL plus symptoms is consistent with Diabetes Mellitus. Blood ARTERIAL BLOOD / Unknown 06/15/2024 1:46 AM EST 06/15/2024 1:47 AM EST Bobby Loja MD POINT OF CARE TEST O RDERABLES [facility] [place] [address] * POC, GLUCOSE (06/15/2024 1:05 AM EST) Glucometer, POC 116 65 - 199 mg/dL 06/15/2024 1:05 AM EST [facility] Comment:Supplemental ranges: <140 mg/dL before meals <180 mg/dL all other times of the day. Blood CAPILLARY BLOOD / Unknown 06/15/2024 1:05 AM EST 06/15/2024 1:05 AM EST Bobby Loja MD POINT OF CARE TEST O RDNICOLLEBLES Performing Organization Address City/[facility]/ZIP Co de Phone Number [facility] [place] [address] * POC, GLUCOSE (06/15/2024 12:16 AM EST) Glucometer, POC 135 65 - 199 mg/dL 06/15/2024 12:16 AM EST [facility] Comment:Supplemental ranges: <140 mg/dL before meals <180 mg/dL all other times of the day. Blood CAPILLARY BLOOD / Unknown 06/15/2024 12:16 AM EST 06/15/2024 12:16 AM EST Bobby Loja MD POINT OF CARE TEST O NIKA Performing Organization Address City/[facility]/ZIP Co de Phone Number [facility] [place] [address] * Potassium (06/14/2024 11:28 PM EST) Potassium 4.1 3.5 - 5.0 mMol/L 06/14/2024 11:54 PM EST [facility] Blood VENOUS BLOOD SPECIMEN / Unknown Venipuncture / Unknown 06/14/2024 11:28 PM EST 06/14/2024 11:34 PM EST Bobby Loja MD CHEMISTRY ORDERABLES Performing Organization Address City/[facility]/ZIP Co de Phone Number [facility] [place] [address] * POC, GLUCOSE (06/14/2024 10:58 PM EST) Glucometer, POC 126 65 - 199 mg/dL 06/14/2024 10:59 PM EST [facility] Comment:Supplemental ranges: <140 mg/dL before meals <180 mg/dL all other times of the day. Blood CAPILLARY BLOOD / Unknown 06/14/2024 10:58 PM EST 06/14/2024 10:59 PM EST Narrative Authorizing Provider Result Saranya Loja MD POINT OF CARE TEST O RDERAPIETER Performing Organization Address City/[facility]/ZIP Co de Phone Number [facility] [place] [address] * POC, GLUCOSE (06/14/2024 9:55 PM EST) Glucometer, POC 152 65 - 199 mg/dL 06/14/2024 9:56 PM EST [facility] Comment:Supplemental ranges: <140 mg/dL before meals <180 mg/dL all other times of the day. Blood CAPILLARY BLOOD / Unknown 06/14/2024 9:55 PM EST 06/14/2024 9:56 PM EST Narrative Authorizing Provider Result Saranya Loja MD POINT OF CARE TEST O NIKA Performing Organization Address City/[facility]/ZIP Co de Phone Number [facility] [place] [place] [address] * POC, GLUCOSE (06/14/2024 8:54 PM EST) Glucometer, POC 151 65 - 199 mg/dL 06/14/2024 8:54 PM EST [facility] Comment:Supplemental ranges: <140 mg/dL before meals <180 mg/dL all other times of the day. Blood CAPILLARY BLOOD / Unknown 06/14/2024 8:54 PM EST 06/14/2024 8:54 PM EST Narrative Authorizing Provider Result Saranya Loja MD POINT OF CARE TEST O RDERAPIETER Performing Organization Address City/[facility]/ZIP Co de Phone Number [facility] [place] [address] * POC, GLUCOSE (06/14/2024 7:51 PM EST) Glucometer, POC 169 65 - 199 mg/dL 06/14/2024 7:52 PM EST [facility] Comment:Supplemental ranges: <140 mg/dL before meals <180 mg/dL all other times of the day. Blood CAPILLARY BLOOD / Unknown 06/14/2024 7:51 PM EST 06/14/2024 7:52 PM EST Bobby Loja MD POINT OF CARE TEST O NIKA [facility] [place] [address] * POC, GLUCOSE (06/14/2024 6:49 PM EST) Glucometer, POC 194 65 - 199 mg/dL 06/14/2024 6:50 PM EST [facility] Comment:Supplemental ranges: <140 mg/dL before meals <180 mg/dL all other times of the day. Blood CAPILLARY BLOOD / Unknown 06/14/2024 6:49 PM EST 06/14/2024 6:50 PM EST Bobby Loja MD POINT OF CARE TEST O NIKA [facility] [place] [address] * (ABNORMAL) Hemoglobin (06/14/2024 6:19 PM EST) Hemoglobin 13.1(L) 13.7 - 16.5 g/dL 06/14/2024 7:08 PM EST [facility] Blood VENOUS BLOOD SPECIMEN / Unknown Venipuncture / Unknown 06/14/2024 6:19 PM EST 06/14/2024 6:28 PM EST Bobby Loja MD HEMATOLOGY ORDERABLE S [facility] [place] [address] * Potassium (06/14/2024 6:19 PM EST) [facility] Potassium 3.9 3.5 - 5.0 mMol/L 06/14/2024 6:52 PM EST [facility] Blood VENOUS BLOOD SPECIMEN / Unknown Venipuncture / Unknown 06/14/2024 6:19 PM EST 06/14/2024 6:28 PM EST Bobby Loja MD CHEMISTRY ORDERABLES Performing Organization Address City/[facility]/ZIP Co de Phone Number [facility] [place] [address] * (ABNORMAL) POC, GLUCOSE (06/14/2024 6:03 PM EST) [facility] Glucometer, POC 201(H) 65 - 199 mg/dL 06/14/2024 6:03 PM EST [facility] Comment:Supplemental ranges: <140 mg/dL before meals <180 mg/dL all other times of the day. Blood CAPILLARY BLOOD / Unknown 06/14/2024 6:03 PM EST 06/14/2024 6:03 PM EST Bobby Loja MD POINT OF CARE TEST O RDERABLES Performing Organization Address City/[facility]/ZIP Co de Phone Number [facility] [place] [address] * (ABNORMAL) Blood Gas, Arterial POC (06/14/2024 4:51 PM EST) [facility] pH, Arterial 7.32(L) 7.35 - 7.45 06/14/2024 4:52 PM EST [facility] PCO2, Arterial 46(H) 35 - 45 mmHg 06/14/2024 4:52 PM EST [facility] PO2, Arterial 85 85 - 104 mmHg 06/14/2024 4:52 PM [facility] Bicarbonate, Arterial 23.1 20.0 - 26.0 mmol/L 06/14/2024 4:52 PM EST [facility] Base Excess, Arterial -3.1(L) -3.0 - 3.0 mmol/L 06/14/2024 4:52 PM [facility] Hemoglobin, Arterial 14.3 13.7 - 16.5 g/dL 06/14/2024 4:52 PM [facility] Oxyhemoglobin, Arterial 94.7 94.0 - 97.0 % 06/14/2024 4:52 PM [facility] Carboxyhemoglobin , Arterial 0.6 % 06/14/2024 4:52 PM [facility] Comment: Nonsmokers: 0.5-1.5% COHB ?? Smokers: Variable ??but usually less than 10% ?? Toxic: 20-30% COHB ?? Lethal: Greater than 60% COHB Methemoglobin, Arterial 0.0 <=1.5 % 06/14/2024 4:52 PM [facility] Sodium, Arterial 138 135 - 145 mmol/L 06/14/2024 4:52 PM [facility] Potassium, Arterial 4.1 3.5 - 5.0 mmol/L 06/14/2024 4:52 PM [facility] Chloride, Arterial 106 98 - 107 mmol/L 06/14/2024 4:52 PM [facility] Lactate, Arterial 1.3 0.5 - 2.2 mmol/L 06/14/2024 4:52 PM [facility] Fraction of Inspired Oxygen 40 % 06/14/2024 4:52 PM [facility] PF Ratio 213 Ratio 06/14/2024 4:52 PM [facility] Comment:PF ratio calculated using the non-temperature corrected pO2 result. IONIZED CALCIUM, ARTERIAL 1.16 1.15 - 1.33 mmol/L 06/14/2024 4:52 PM [facility] Glucose, Arterial 192 65 - 199 mg/dL 06/14/2024 4:52 PM [facility] Comment:Glucose Concentratio n >=200 mg/dL plus symptoms is consistent with Diabetes Mellitus. Blood ARTERIAL BLOOD / Unknown 06/14/2024 4:51 PM EST 06/14/2024 4:52 PM EST Bobby Loja MD POINT OF CARE TEST O NIKA Performing Organization Address [facility] Co de Phone Number [facility] [place] [address] * POC, GLUCOSE (06/14/2024 4:00 PM EST) Glucometer, POC 184 65 - 199 mg/dL 06/14/2024 4:01 PM EST [facility] Comment:Supplemental ranges: <140 mg/dL before meals <180 mg/dL all other times of the day. Blood CAPILLARY BLOOD / Unknown 06/14/2024 4:00 PM EST 06/14/2024 4:01 PM EST Bobby Loja MD POINT OF CARE TEST O NIKA Performing Organization Address [facility] Phone Number [facility] [place] [place] [address] * XR Chest One View (06/14/2024 3:05 PM EST) WORKSTATION ID [id number] DH RAD Anatomical Region Laterality Modality Chest [...] who have questions please contact the health palliative care specialist that requested your imaging first. ? Electronically signed by: Sturat Aponte MD, [facility] ??([phone]), at 06/14/2024 4:07 PM Narrative 06/14/2024 4:07 [...] patients who have questions please contactthe health palliative care specialist that requested your imaging first. Electronically signed by: Stuart Aponte MD, [facility]([phone]), at 06/14/2024 4:07 PM Bobby Loja MD IMG DX ORDERABLES * (ABNORMAL) Blood Gas, Arterial POC (06/14/2024 2:52 PM EST) pH, Arterial 7.28(LLL) 7.35 - 7.45 06/14/2024 2:53 PM EST [facility] PCO2, Arterial 50(H) 35 - 45 mmHg 06/14/2024 2:53 PM [facility] PO2, Arterial 510(H) 85 - 104 mmHg 06/14/2024 2:53 PM [facility] Bicarbonate, Arterial 22.8 20.0 - 26.0 mmol/L 06/14/2024 2:53 PM [facility] Base Excess, Arterial -4.0(L) -3.0 - 3.0 mmol/L 06/14/2024 2:53 PM [facility] Hemoglobin, Arterial 13.8 13.7 - 16.5 g/dL 06/14/2024 2:53 PM [facility] Oxyhemoglobin, Arterial 99.3(H) 94.0 - 97.0 % 06/14/2024 2:53 PM [facility] Carboxyhemoglobin , Arterial 0.6 % 06/14/2024 2:53 PM [facility] Comment: Nonsmokers: 0.5-1.5% COHB ?? Smokers: Variable ??but usually less than 10% ?? Toxic: 20-30% COHB ?? Lethal: Greater than 60% COHB Methemoglobin, Arterial 0.1 <=1.5 % 06/14/2024 2:53 PM [facility] Sodium, Arterial 138 135 - 145 mmol/L 06/14/2024 2:53 PM [facility] Potassium, Arterial 4.2 3.5 - 5.0 mmol/L 06/14/2024 2:53 PM EST [facility] Chloride, Arterial 106 98 - 107 mmol/L 06/14/2024 2:53 PM [facility] Lactate, Arterial 1.1 0.5 - 2.2 mmol/L 06/14/2024 2:53 PM EST [facility] Fraction of Inspired Oxygen 100 % 06/14/2024 2:53 PM EST [facility] PF Ratio 510 Ratio 06/14/2024 2:53 PM [facility] Comment:PF ratio calculated using the non-temperature corrected pO2 result. IONIZED CALCIUM, ARTERIAL 1.15 1.15 - 1.33 mmol/L 06/14/2024 2:53 PM [facility] Glucose, Arterial 169 65 - 199 mg/dL 06/14/2024 2:53 PM [facility] Comment:Glucose Concentratio n >=200 mg/dL plus symptoms is consistent with Diabetes Mellitus. Blood ARTERIAL BLOOD / Unknown 06/14/2024 2:52 PM EST 06/14/2024 2:53 PM EST Bobby Loja MD POINT OF CARE TEST O RDERABLES [facility] [place] [address] * EKG 12 Lead (06/14/2024 2:46 PM EST) Ventricular rate 80 BPM MUSE SYSTEM Atrial Rate 80 BPM MUSE SYSTEM P-R Interval 120 ms MUSE SYSTEM QRS Duration 108 ms MUSE SYSTEM Q-T Interval 454 ms MUSE SYSTEM QTC Calculated (Bezet) 523 ms MUSE SYSTEM Calculated P Gardner 70 degrees MUSE SYSTEM Calculated R Gardner 56 degrees MUSE SYSTEM Calculated T Gardner 50 degrees MUSE SYSTEM INTERPRETATION AV dual-paced rhythm Abnormal ECG When compared with ECG of 03-JUN-2024 01:45, Vent. rate has increased BY ??17 BPM Confirmed by MD Marisol, Shaheen ([id number]) on 06/15/2024 1:57:23 PM MUSE SYSTEM 06/14/2024 2:46 PM EST 06/15/2024 1:57 PM EST Bobby Loja MD ECG ORDERABLES MUSE SYSTEM * Prepare RBC (06/14/2024 2:27 PM EST) Status Information Returned [facility] Product Identification RBC [facility] Unit Number [id number] [facility] Product [facility] [id number] [facility] Unit Blood Type OPOS [facility] Specimen Expiration Date [facility] Volulme 350 [facility] Issue Date / Time [facility] Status [facility] Returned [facility] Product Identification RBC [facility] Unit Number [id number] [facility] Product [facility] [id number] [facility] Unit Blood Type OPOS [facility] Specimen Expiration Date [facility] Volulme 350 [facility] Issue Date / Time [facility] Blood 06/14/2024 6:2 5 AM EST Haja Byrnes MD BLOOD BANK PRODUCT O RDERABLES [facility] [place] [address] * (ABNORMAL) Cooximetry, POC (06/14/2024 1:52 PM EST) pO2, Coox 58 mmHg 06/14/2024 1:55 PM EST [facility] Hemoglobin, Coox 12.6(L) 13.7 - 16.5 g/dL 06/14/2024 1:55 PM EST [facility] Oxyhemoglobin, Coox 85.5 % 06/14/2024 1:55 PM EST [facility] Carboxyhemoglo bin, Coox 0.3 % 06/14/2024 1:55 PM EST [facility] Comment: Nonsmokers: 0.5-1.5% COHB ?? Smokers: Variable ??but usually less than 10% ?? Toxic: 20-30% COHB ?? Lethal: Greater than 60% COHB Methemoglobin, Coox 0.6 <=1.5 % 06/14/2024 1:55 PM [facility] Blood (Mixed Venous) 06/14/2024 1:52 PM EST 06/14/2024 1:55 PM EST Haja Byrnes MD POINT OF CARE TEST O RDERABLES [facility] [place] [address] * (ABNORMAL) Blood Gas, Arterial POC (06/14/2024 12:47 PM EST) pH, Arterial 7.33(L) 7.35 - 7.45 06/14/2024 12:48 PM [facility] PCO2, Arterial 46(H) 35 - 45 mmHg 06/14/2024 12:48 PM [facility] PO2, Arterial 358(H) 85 - 104 mmHg 06/14/2024 12:48 PM [facility] Bicarbonate, Arterial 23.8 20.0 - 26.0 mmol/L 06/14/2024 12:48 PM [facility] Base Excess, Arterial -2.1 -3.0 - 3.0 mmol/L 06/14/2024 12:48 PM [facility] Hemoglobin, Arterial 11.7(L) 13.7 - 16.5 g/dL 06/14/2024 12:48 PM [facility] Oxyhemoglobin, Arterial 98.7(H) 94.0 - 97.0 % 06/14/2024 12:48 PM [facility] Carboxyhemoglobin , Arterial 0.3 % 06/14/2024 12:48 PM [facility] Comment: Nonsmokers: 0.5-1.5% COHB ?? Smokers: Variable ??but usually less than 10% ?? Toxic: 20-30% COHB ?? Lethal: Greater than 60% COHB Methemoglobin, Arterial 0.5 <=1.5 % 06/14/2024 12:48 PM EST [facility] Sodium, Arterial 135 135 - 145 mmol/L 06/14/2024 12:48 PM [facility] Potassium, Arterial 5.0 3.5 - 5.0 mmol/L 06/14/2024 12:48 PM [facility] Chloride, Arterial 106 98 - 107 mmol/L 06/14/2024 12:48 PM [facility] Lactate, Arterial 1.4 0.5 - 2.2 mmol/L 06/14/2024 12:48 PM [facility] IONIZED CALCIUM, ARTERIAL 1.09(L) 1.15 - 1.33 mmol/L 06/14/2024 12:48 PM [facility] Glucose, Arterial 157 65 - 199 mg/dL 06/14/2024 12:48 PM [facility] Comment:Glucose Concentratio n >=200 mg/dL plus symptoms is consistent with Diabetes Mellitus. Blood ARTERIAL BLOOD / Unknown 06/14/2024 12:47 PM EST 06/14/2024 12:48 PM EST Haja Byrnes MD POINT OF CARE TEST O RDERABLES [facility] [place] [place] [address] * (ABNORMAL) Cooximetry, POC (06/14/2024 12:42 PM EST) pO2, Coox 71 mmHg 06/14/2024 12:45 PM [facility] Hemoglobin, Coox 11.6(L) 13.7 - 16.5 g/dL 06/14/2024 12:45 PM [facility] Oxyhemoglobin, Coox 91.5 % 06/14/2024 12:45 PM EST [facility] Carboxyhemoglo bin, Coox 0.3 % 06/14/2024 12:45 PM EST [facility] Comment: Nonsmokers: 0.5-1.5% COHB ?? Smokers: Variable ??but usually less than 10% ?? Toxic: 20-30% COHB ?? Lethal: Greater than 60% COHB Methemoglobin, Coox 0.4 <=1.5 % 06/14/2024 12:45 PM EST [facility] Blood (Mixed Venous) 06/14/2024 12:42 PM EST 06/14/2024 12:45 PM EST Haja Byrnes MD POINT OF CARE TEST O RDERABLES [facility] [place] [address] * (ABNORMAL) Platelet count (06/14/2024 12:30 PM EST) Platelet 73(L) 145 - 357 x10(3)/mcL 06/14/2024 12:54 PM EST [facility] Blood ARTERIAL BLOOD / Unknown 06/14/2024 12:30 PM EST Comment:Pre-op diagnosis: CAD Bobby Loja MD HEMATOLOGY ORDERABLE S Performing Organization Address City/[facility]/ZIP Co de Phone Number [facility] [place] [address] * (ABNORMAL) Hemoglobin and Hematocrit, blood (06/14/2024 [...] MD HEMATOLOGY ORDERABLE S Performing Organization Address [facility] Co de Phone Number [facility] [place] [address] * APTT (06/14/2024 12:30 PM EST) Partial [...] MD HEMATOLOGY ORDERABLE S Performing Organization Address [facility] Co de Phone Number [facility] [place] [address] * (ABNORMAL) Prothrombin Time (06/14/2024 12:30 PM [...] MD HEMATOLOGY ORDERABLE S Performing Organization Address [facility] Co de Phone Number [facility] [place] [address] * Fibrinogen (06/14/2024 12:30 PM EST) Fibrinogen [...] MD HEMATOLOGY ORDERABLE S Performing Organization Address [facility] Co de Phone Number [facility] [place] [address] * (ABNORMAL) Blood Gas, Arterial POC (06/14/2024 12:15 PM EST) pH, Arterial 7.38 7.35 - 7.45 06/14/2024 12:16 PM [facility] PCO2, Arterial 40 35 - 45 mmHg 06/14/2024 12:16 PM [facility] Bicarbonate, Arterial 22.9 20.0 - 26.0 mmol/L 06/14/2024 12:16 PM [facility] Base Excess, Arterial -2.3 -3.0 - 3.0 mmol/L 06/14/2024 12:16 PM [facility] Hemoglobin, Arterial 11.4(L) 13.7 - 16.5 g/dL 06/14/2024 12:16 PM [facility] Oxyhemoglobin, Arterial 98.8(H) 94.0 - 97.0 % 06/14/2024 12:16 PM [facility] Carboxyhemoglobin , Arterial 0.3 % 06/14/2024 12:16 PM EST [facility] Comment: Nonsmokers: 0.5-1.5% COHB ?? Smokers: Variable ??but usually less than 10% ?? Toxic: 20-30% COHB ?? Lethal: Greater than 60% COHB Methemoglobin, Arterial 0.6 <=1.5 % 06/14/2024 12:16 PM [facility] Sodium, Arterial 134(L) 135 - 145 mmol/L 06/14/2024 12:16 PM [facility] Potassium, Arterial 5.4(H) 3.5 - 5.0 mmol/L 06/14/2024 12:16 PM [facility] Chloride, Arterial 105 98 - 107 mmol/L 06/14/2024 12:16 PM [facility] Lactate, Arterial 1.3 0.5 - 2.2 mmol/L 06/14/2024 12:16 PM [facility] IONIZED CALCIUM, ARTERIAL 1.08(L) 1.15 - 1.33 mmol/L 06/14/2024 12:16 PM [facility] Glucose, Arterial 161 65 - 199 mg/dL 06/14/2024 12:16 PM [facility] Comment:Glucose Concentratio n >=200 mg/dL plus symptoms is consistent with Diabetes Mellitus. Blood ARTERIAL BLOOD / Unknown 06/14/2024 12:15 PM EST 06/14/2024 12:16 PM EST Haja Byrnes MD POINT OF CARE TEST O RDERABLES [facility] [place] [address] * (ABNORMAL) Blood Gas, Arterial POC (06/14/2024 11:51 AM EST) pH, Arterial 7.40 7.35 - 7.45 06/14/2024 11:52 AM EST [facility] PCO2, Arterial 41 35 - 45 mmHg 06/14/2024 11:52 AM [facility] PO2, Arterial 332(H) 85 - 104 mmHg 06/14/2024 11:52 AM [facility] Bicarbonate, Arterial 24.7 20.0 - 26.0 mmol/L 06/14/2024 11:52 AM [facility] Base Excess, Arterial -0.1 -3.0 - 3.0 mmol/L 06/14/2024 11:52 AM [facility] Hemoglobin, Arterial 11.1(L) 13.7 - 16.5 g/dL 06/14/2024 11:52 AM [facility] Oxyhemoglobin, Arterial 98.7(H) 94.0 - 97.0 % 06/14/2024 11:52 AM [facility] Carboxyhemoglobin , Arterial 0.3 % 06/14/2024 11:52 AM [facility] Comment: Nonsmokers: 0.5-1.5% COHB ?? Smokers: Variable ??but usually less than 10% ?? Toxic: 20-30% COHB ?? Lethal: Greater than 60% COHB Methemoglobin, Arterial 0.4 <=1.5 % 06/14/2024 11:52 AM [facility] Sodium, Arterial 135 135 - 145 mmol/L 06/14/2024 11:52 AM [facility] Potassium, Arterial 5.7(H) 3.5 - 5.0 mmol/L 06/14/2024 11:52 AM [facility] Chloride, Arterial 105 98 - 107 mmol/L 06/14/2024 11:52 AM [facility] Lactate, Arterial 1.2 0.5 - 2.2 mmol/L 06/14/2024 11:52 AM [facility] IONIZED CALCIUM, ARTERIAL 1.10(L) 1.15 - 1.33 mmol/L 06/14/2024 11:52 AM [facility] Glucose, Arterial 148 65 - 199 mg/dL 06/14/2024 11:52 AM [facility] Comment:Glucose Concentratio n >=200 mg/dL plus symptoms is consistent with Diabetes Mellitus. Blood ARTERIAL BLOOD / Unknown 06/14/2024 11:51 AM EST 06/14/2024 11:52 AM EST Haja Byrnes MD POINT OF CARE TEST O RDERABLES [facility] [place] [address] * (ABNORMAL) Blood Gas, Arterial POC (06/14/2024 11:27 AM EST) pH, Arterial 7.38 7.35 - 7.45 06/14/2024 11:28 AM [facility] PCO2, Arterial 37 35 - 45 mmHg 06/14/2024 11:28 AM [facility] PO2, Arterial 348(H) 85 - 104 mmHg 06/14/2024 11:28 AM [facility] Bicarbonate, Arterial 21.1 20.0 - 26.0 mmol/L 06/14/2024 11:28 AM [facility] Base Excess, Arterial -4.1(L) -3.0 - 3.0 mmol/L 06/14/2024 11:28 AM [facility] Hemoglobin, Arterial 11.0(L) 13.7 - 16.5 g/dL 06/14/2024 11:28 AM [facility] Oxyhemoglobin, Arterial 98.7(H) 94.0 - 97.0 % 06/14/2024 11:28 AM [facility] Carboxyhemoglobin , Arterial 0.3 % 06/14/2024 11:28 AM [facility] Comment: Nonsmokers: 0.5-1.5% COHB ?? Smokers: Variable ??but usually less than 10% ?? Toxic: 20-30% COHB ?? Lethal: Greater than 60% COHB Methemoglobin, Arterial 0.4 <=1.5 % 06/14/2024 11:28 AM [facility] Sodium, Arterial 132(L) 135 - 145 mmol/L 06/14/2024 11:28 AM [facility] Potassium, Arterial 5.8(H) 3.5 - 5.0 mmol/L 06/14/2024 11:28 AM [facility] Chloride, Arterial 105 98 - 107 mmol/L 06/14/2024 11:28 AM [facility] Lactate, Arterial 1.1 0.5 - 2.2 mmol/L 06/14/2024 11:28 AM [facility] IONIZED CALCIUM, ARTERIAL 1.03(L) 1.15 - 1.33 mmol/L 06/14/2024 11:28 AM [facility] Glucose, Arterial 147 65 - 199 mg/dL 06/14/2024 11:28 AM [facility] Comment:Glucose Concentratio n >=200 mg/dL plus symptoms is consistent with Diabetes Mellitus. Blood ARTERIAL BLOOD / Unknown 06/14/2024 11:27 AM EST 06/14/2024 11:28 AM EST Haja Byrnes MD POINT OF CARE TEST O RDERABLES [facility] [place] [address] * (ABNORMAL) Scan, Peripheral Blood (06/14/2024 11:23 AM EST) RBC Morphology Abnormal 06/14/2024 11:59 AM [facility] Platelet Estimate Decreased(A) Normal 06/14/2024 11:59 AM [facility] [place] cells 1-5 /HPF 06/14/2024 11:59 AM [facility] Blood ARTERIAL BLOOD / Unknown 06/14/2024 11:23 AM EST 06/14/2024 11:27 AM EST Bobby Loja MD HEMATOLOGY ORDERABLE S [facility] [place] [address] * (ABNORMAL) Platelet count (06/14/2024 11:23 AM EST) Platelet 86(L) 145 - 357 x10(3)/mcL 06/14/2024 11:59 AM EST [facility] Blood ARTERIAL BLOOD / Unknown 06/14/2024 11:23 AM EST Comment:Pre-op diagnosis: CAD Bobby Loja MD HEMATOLOGY ORDERABLE S [facility] [place] [address] * (ABNORMAL) Hemoglobin and Hematocrit, blood (06/14/2024 11:23 AM EST) Hemoglobin 9.8(L) 13.7 - 16.5 g/dL 06/14/2024 11:59 AM EST [facility] Comment:This result has been called to Danielle López by Satya Page on 06/14/2024 11:58:33. Hematocrit 30.5(L) 40.5 - 48.5 % 06/14/2024 11:59 AM EST [facility] Comment:This result has been called to Danielle López by Satya Page on 06/14/2024 11:58:40, and has been read back. Blood ARTERIAL BLOOD / Unknown 06/14/2024 11:23 AM EST 06/14/2024 11:27 AM EST Comment:Pre-op diagnosis: CAD Bobby Loja MD HEMATOLOGY ORDERABLE S [facility] [place] [address] * (ABNORMAL) Blood Gas, Arterial POC (06/14/2024 10:58 AM EST) pH, Arterial 7.38 7.35 - 7.45 06/14/2024 10:59 AM EST [facility] PCO2, Arterial 43 35 - 45 mmHg 06/14/2024 10:59 AM [facility] PO2, Arterial 401(H) 85 - 104 mmHg 06/14/2024 10:59 AM [facility] Bicarbonate, Arterial 24.8 20.0 - 26.0 mmol/L 06/14/2024 10:59 AM [facility] Base Excess, Arterial -0.5 -3.0 - 3.0 mmol/L 06/14/2024 10:59 AM [facility] Hemoglobin, Arterial 11.9(L) 13.7 - 16.5 g/dL 06/14/2024 10:59 AM [facility] Oxyhemoglobin, Arterial 99.0(H) 94.0 - 97.0 % 06/14/2024 10:59 AM [facility] Carboxyhemoglobin , Arterial 0.3 % 06/14/2024 10:59 AM [facility] Comment: Nonsmokers: 0.5-1.5% COHB ?? Smokers: Variable ??but usually less than 10% ?? Toxic: 20-30% COHB ?? Lethal: Greater than 60% COHB Methemoglobin, Arterial 0.3 <=1.5 % 06/14/2024 10:59 AM [facility] Sodium, Arterial 128(L) 135 - 145 mmol/L 06/14/2024 10:59 AM [facility] Potassium, Arterial 6.6(HHH) 3.5 - 5.0 mmol/L 06/14/2024 10:59 AM [facility] Chloride, Arterial 99 98 - 107 mmol/L 06/14/2024 10:59 AM [facility] Lactate, Arterial 1.3 0.5 - 2.2 mmol/L 06/14/2024 10:59 AM [facility] IONIZED CALCIUM, ARTERIAL 1.00(L) 1.15 - 1.33 mmol/L 06/14/2024 10:59 AM [facility] Glucose, Arterial 155 65 - 199 mg/dL 06/14/2024 10:59 AM [facility] Comment:Glucose Concentratio n >=200 mg/dL plus symptoms is consistent with Diabetes Mellitus. Blood ARTERIAL BLOOD / Unknown 06/14/2024 10:58 AM EST 06/14/2024 10:59 AM EST Haja Byrnes MD POINT OF CARE TEST O RDERABLES [facility] [place] [address] * (ABNORMAL) Blood Gas, Arterial POC (06/14/2024 10:26 AM EST) pH, Arterial 7.29(LLL) 7.35 - 7.45 06/14/2024 10:27 AM [facility] PCO2, Arterial 43 35 - 45 mmHg 06/14/2024 10:27 AM [facility] PO2, Arterial 369(H) 85 - 104 mmHg 06/14/2024 10:27 AM [facility] Bicarbonate, Arterial 19.9(L) 20.0 - 26.0 mmol/L 06/14/2024 10:27 AM [facility] Base Excess, Arterial -6.7(L) -3.0 - 3.0 mmol/L 06/14/2024 10:27 AM [facility] Hemoglobin, Arterial 12.6(L) 13.7 - 16.5 g/dL 06/14/2024 10:27 AM [facility] Oxyhemoglobin, Arterial 99.1(H) 94.0 - 97.0 % 06/14/2024 10:27 AM [facility] Carboxyhemoglobin , Arterial 0.1 % 06/14/2024 10:27 AM [facility] Comment: Nonsmokers: 0.5-1.5% COHB ?? Smokers: Variable ??but usually less than 10% ?? Toxic: 20-30% COHB ?? Lethal: Greater than 60% COHB Methemoglobin, Arterial 0.4 <=1.5 % 06/14/2024 10:27 AM [facility] Sodium, Arterial 129(L) 135 - 145 mmol/L 06/14/2024 10:27 AM [facility] Potassium, Arterial 5.0 3.5 - 5.0 mmol/L 06/14/2024 10:27 AM [facility] Chloride, Arterial 99 98 - 107 mmol/L 06/14/2024 10:27 AM [facility] Lactate, Arterial 0.9 0.5 - 2.2 mmol/L 06/14/2024 10:27 AM [facility] IONIZED CALCIUM, ARTERIAL 1.05(L) 1.15 - 1.33 mmol/L 06/14/2024 10:27 AM [facility] Glucose, Arterial 149 65 - 199 mg/dL 06/14/2024 10:27 AM [facility] Comment:Glucose Concentratio n >=200 mg/dL plus symptoms is consistent with Diabetes Mellitus. Blood ARTERIAL BLOOD / Unknown 06/14/2024 10:26 AM EST 06/14/2024 10:27 AM EST Haja Byrnes MD POINT OF CARE TEST O RDERABLES [facility] [place] [address] * (ABNORMAL) Blood Gas, Arterial POC (06/14/2024 10:25 AM EST) pH, Arterial 7.26(LLL) 7.35 - 7.45 06/14/2024 10:26 AM [facility] PCO2, Arterial 48(H) 35 - 45 mmHg 06/14/2024 10:26 AM [facility] Bicarbonate, Arterial 21.2 20.0 - 26.0 mmol/L 06/14/2024 10:26 AM [facility] Base Excess, Arterial -5.8(L) -3.0 - 3.0 mmol/L 06/14/2024 10:26 AM [facility] Hemoglobin, Arterial 12.5(L) 13.7 - 16.5 g/dL 06/14/2024 10:26 AM [facility] Oxyhemoglobin, Arterial 82.3(L) 94.0 - 97.0 % 06/14/2024 10:26 AM [facility] Carboxyhemoglobin , Arterial 0.5 % 06/14/2024 10:26 AM [facility] Comment: Nonsmokers: 0.5-1.5% COHB ?? Smokers: Variable ??but usually less than 10% ?? Toxic: 20-30% COHB ?? Lethal: Greater than 60% COHB Methemoglobin, Arterial 0.5 <=1.5 % 06/14/2024 10:26 AM [facility] Sodium, Arterial 131(L) 135 - 145 mmol/L 06/14/2024 10:26 AM [facility] Potassium, Arterial 4.6 3.5 - 5.0 mmol/L 06/14/2024 10:26 AM [facility] Chloride, Arterial 103 98 - 107 mmol/L 06/14/2024 10:26 AM [facility] Lactate, Arterial 0.8 0.5 - 2.2 mmol/L 06/14/2024 10:26 AM [facility] IONIZED CALCIUM, ARTERIAL 0.91(LLL) 1.15 - 1.33 mmol/L 06/14/2024 10:26 AM [facility] Glucose, Arterial 148 65 - 199 mg/dL 06/14/2024 10:26 AM [facility] Comment:Glucose Concentratio n >=200 mg/dL plus symptoms is consistent with Diabetes Mellitus. Blood ARTERIAL BLOOD / Unknown 06/14/2024 10:25 AM EST 06/14/2024 10:26 AM EST Haja Byrnes MD POINT OF CARE TEST O RDERABLES [facility] [place] [address] * Surgical Pathology (06/14/2024 9:53 AM EST) Case Report Surgical Pathology Report ? Case: [id number] ? Authorizing Provider: ??Bobby Loja MD ? Collected: ? 06/14/2024 0953 ? Ordering Location: ? Main Operating Room [facility] ?? Received: ?06/14/2024 1413 ? [facility] ? [facility] ? Pathologist: ? Sandra Salas MD ? Specimens: ?? A) - Soft Tissue Mass, mediastinal mass ? B) - Heart, Atrial Appendage, Left ? 06/18/2024 10:18 AM [facility] Final Diagnosis A. Soft Tissue Mass, Mediastinal Mass, Excision: - Atrophic thymic tissue B. Heart, Atrial Appendage, Left, Excision: - Mild myocyte hypertrophy 06/18/2024 10:18 AM [facility] Clinical Information A. Soft Tissue Mass, mediastinal mass Soft tissue mass Mediastinal mass B. Heart, Atrial Appendage, Left, *Other - as specified in Clinical Information MARIALUISA 06/18/2024 10:18 AM [facility] Gross Description A. Soft Tissue Mass, mediastinal mass. A - Labeled/Fixative : Mediastinal mass, fresh. Quantity/Size: Single, 7.2 x 5.3 x 1.2 cm. Tissue Description: Unoriented, intact portion of soft, rodriguez-yellow, lobulated tissue. The cut surface is homogenously pale-rodriguez, yellow and lobulated. No lesions or nodules are identified. Inking: External surface inked black Sections/Process ing: Group Practice Pediatrician sections in 4 cassettes labeled A1-A4. cmk B. Heart, Atrial Appendage, Left, . B - Labeled/Fixative : Heart, atrial appendage, left, fresh. Quantity/Size: Single, 3.3 x 1.5 x 0.8 cm. Tissue Description: Portion of heart tissue consisting of rodriguez-white, semitranslucent, smooth endocardium with rodriguez-brown muscular myocardium and thin translucent epicardium with adherent adipose tissue. No areas of discoloration identified. Sections/Process ing: Group Practice Pediatrician sections in 1 cassette labeled B1. cmk 06/18/2024 10:18 AM [facility] Result Note Routine 06/18/2024 10:18 AM [facility] Tissue SOFT TISSUE MASS / Unknown 06/14/2024 9:53 AM EST 06/14/2024 2:13 PM EST Comment:Mediastinal mass Tissue specimen (specimen) LEFT ATRIAL APPENDAGE ABSENT / Unknown 06/14/2024 10:54 AM EST 06/14/2024 2:13 PM EST Comment:MARIALUISA Bobby Loja MD PATHOLOGY/CYTOLOGY O RDERABLES [facility] [place] [address] * Cooximetry, POC (06/14/2024 9:00 AM EST) pO2, Coox 57 mmHg 06/14/2024 9:04 AM [facility] PO2 Corrected, COOX 50 mmHg 06/14/2024 9:04 AM [facility] Hemoglobin, Coox 14.3 13.7 - 16.5 g/dL 06/14/2024 9:04 AM [facility] Oxyhemoglobin, Coox 86.2 % 06/14/2024 9:04 AM [facility] Carboxyhemoglobi n, Coox 0.3 % 06/14/2024 9:04 AM EST [facility] Comment: Nonsmokers: 0.5-1.5% COHB ?? Smokers: Variable ??but usually less than 10% ?? Toxic: 20-30% COHB ?? Lethal: Greater than 60% COHB Methemoglobin, Coox 0.3 <=1.5 % 06/14/2024 9:04 AM EST [facility] Temperature Coox 35.2 C 06/14/20 24 9:04 AM EST [facility] Blood (Mixed Venous) 06/14/2024 9:00 AM EST 06/14/2024 9:04 AM EST Haja Byrnes MD POINT OF CARE TEST O RDERABLES [facility] [place] [address] * (ABNORMAL) Blood Gas, Arterial POC (06/14/2024 8:39 AM [facility]) pH, Arterial 7.37 7.35 - 7.45 06/14/2024 8:40 AM [facility] PCO2, Arterial 42 35 - 45 mmHg 06/14/2024 8:40 AM [facility] PO2, Arterial 341(H) 85 - 104 mmHg 06/14/2024 8:40 AM [facility] Bicarbonate, Arterial 23.7 20.0 - 26.0 mmol/L 06/14/2024 8:40 AM [facility] Base Excess, Arterial -1.6 -3.0 - 3.0 mmol/L 06/14/2024 8:40 AM [facility] Hemoglobin, Arterial 15.2 13.7 - 16.5 g/dL 06/14/2024 8:40 AM [facility] Oxyhemoglobin, Arterial 99.2(H) 94.0 - 97.0 % 06/14/2024 8:40 AM [facility] Carboxyhemoglobin , Arterial 0.1 % 06/14/2024 8:40 AM [facility] Comment: Nonsmokers: 0.5-1.5% COHB ?? Smokers: Variable ??but usually less than 10% ?? Toxic: 20-30% COHB ?? Lethal: Greater than 60% COHB Methemoglobin, Arterial 0.3 <=1.5 % 06/14/2024 8:40 AM [facility] Sodium, Arterial 136 135 - 145 mmol/L 06/14/2024 8:40 AM [facility] Potassium, Arterial 4.2 3.5 - 5.0 mmol/L 06/14/2024 8:40 AM [facility] Chloride, Arterial 102 98 - 107 mmol/L 06/14/2024 8:40 AM [facility] Lactate, Arterial 0.9 0.5 - 2.2 mmol/L 06/14/2024 8:40 AM [facility] IONIZED CALCIUM, ARTERIAL 1.17 1.15 - 1.33 mmol/L 06/14/2024 8:40 AM EST [facility] Glucose, Arterial 121 65 - 199 mg/dL 06/14/2024 8:40 AM EST [facility] Comment:Glucose Concentratio n >=200 mg/dL plus symptoms is consistent with Diabetes Mellitus. Blood ARTERIAL BLOOD / Unknown 06/14/2024 8:39 AM EST 06/14/2024 8:40 AM EST Haja Byrnes MD POINT OF CARE TEST O RDERABLES [facility] [place] [place] [address] * Transesophageal Echo/OR (06/14/2024 7:20 AM EST) Anatomical Region Laterality Modality Cardiac Other 06/14/2024 7:20 AM EST Narrative 06/14/2024 4:36 PM EST Version: 2 Study ID: [id number] [address] [place] [address] ?OR Transesophageal Echo Report Name: TYSON GEORGE [...] of this mass after consultation with other hydrometer calibrator experts and the decision was made by [...] MD - 06/14/2024 Version: 2 Study ID: [id number] [address] [place] [id number] ORTransesophageal Echo Report Name: GEORGE MEHTA Study Date: 06/14/2024,7: 20 AM Patient Location:^DC16^A : 1955 Age: 69 Years Gender: Male [...] of this mass after consultation with other hydrometer calibrator experts and thedecision was made by surgeon [...] - 199 mg/dL 06/14/2024 7:12 AM EST [facility] Comment:Supplemental ranges: <140 mg/dL before meals <180 mg/dL all other times of the day. Blood CAPILLARY BLOOD / Unknown 06/14/2024 7:11 AM EST 06/14/2024 7:12 AM EST Haja Byrnes MD POINT OF CARE TEST O NIKA Performing Organization Address City/[facility]/ZIP Co de Phone Number [facility] [place] [address] * POC, GLUCOSE (06/14/2024 4:30 AM EST) Glucometer, POC 85 65 - 199 mg/dL 06/14/2024 4:30 AM EST [facility] Comment:Supplemental ranges: <140 mg/dL before meals <180 mg/dL all other times of the day. Blood CAPILLARY BLOOD / Unknown 06/14/2024 4:30 AM EST 06/14/2024 4:30 AM EST Haja Byrnes MD POINT OF CARE TEST O NIKA Performing Organization Address City/[facility]/ZIP Co de Phone Number [facility] [address] * (ABNORMAL) Heparin (unfractionated) Level (06/14/2024 12:12 AM EST) UF Heparin 1.02(HHH) IU/mL 06/14/2024 12:46 AM [facility] Comment: Heparin (anti-Xa) levels [...] EST Shahnaz Scanlon MD HEMATOLOGY ORDERABLE S [facility] [place] [address] * (ABNORMAL) CBC (with Diff) (06/14/2024 12:12 AM EST) White Blood Cell 10.51(H) 4.00 - 9.50 x10(3)/mc L 06/14/2024 12:38 AM [facility] Red Blood Cell 4.99 4.58 - 5.54 x10(6)/mc L 06/14/2024 12:38 AM [facility] Hemoglobin 14.9 13.7 - 16.5 g/dL 06/14/2024 12:38 AM [facility] Hematocrit 45.9 40.5 - 48.5 % 06/14/2024 12:38 AM [facility] Mean Cell Volume 92.0 82.9 - 93.1 fL 06/14/2024 12:38 AM [facility] Mean Cell Hemoglobin 29.9 27.5 - 32.1 pg 06/14/2024 12:38 AM [facility] Mean Cell Hemoglobin Concentration 32.5 32.0 - 35.7 g/dL 06/14/2024 12:38 AM [facility] Platelet 162 145 - 357 x10(3)/mc L 06/14/2024 12:38 AM [facility] Mean Platelet Volume 10.1 7.6 - 12.9 fL 06/14/2024 12:38 AM [facility] RDW Standard Deviation 46.9(H) 36.0 - 45.0 fL 06/14/2024 12:38 AM [facility] RDW coefficient of variation 13.8 11.4 - 13.8 % 06/14/2024 12:38 AM [facility] NRBC% auto 0.0 % 06/14/2024 12:38 AM [facility] NRBC Absolute <0.01 <0.01 x10(3)/mc L 06/14/2024 12:38 AM [facility] Neutrophil % 56.7 % 06/14/2024 12:38 AM [facility] Neutrophil Absolute (ANC) - Automated 5.96 1.70 - 6.10 x10(3)/mc L 06/14/2024 12:38 AM [facility] Lymph % 26.8 % 06/14/2024 12:38 AM [facility] Lymph Absolute 2.82 0.90 - 3.20 x10(3)/mc L 06/14/2024 12:38 AM [facility] Monocyte % 11.2 % 06/14/2024 12:38 AM [facility] Monocyte Absolute 1.18(H) 0.30 - 0.90 x10(3)/mc L 06/14/2024 12:38 AM [facility] Eos % 3.9 % 06/14/2024 12:38 AM [facility] Eos Absolute 0.41(H) 0.00 - 0.40 x10(3)/mc L 06/14/2024 12:38 AM EST [facility] Basophil % 0.8 % 06/14/2024 12:38 AM EST [facility] Baso Absolute 0.08 0.00 - 0.10 x10(3)/mc L 06/14/2024 12:38 AM EST [facility] Immature Gran % 0.6 % 12:38 AM EST [facility] Immature Gran Absolute 0.06(H) 0.00 - 0.04 x10(3)/mc L 06/14/2024 12:38 AM EST [facility] Blood VENOUS BLOOD SPECIMEN / Unknown Venipuncture / Unknown 06/14/2024 12:12 AM EST 06/14/2024 12:29 AM EST Shahnaz Scanlon MD HEMATOLOGY ORDERABLE S [facility] [place] [address] * Magnesium (06/14/2024 12:12 AM EST) Magnesium 0.74 0.69 - 1.07 mMol/L 06/14/2024 12:57 AM EST [facility] Blood VENOUS BLOOD SPECIMEN / Unknown Venipuncture / Unknown 06/14/2024 12:12 AM EST 06/14/2024 12:29 AM EST Shahnaz Scanlon MD CHEMISTRY ORDERABLES [facility] [place] [address] * (ABNORMAL) Basic Metabolic Panel (06/14/2024 12:12 AM EST) Glucose 97 65 - 199 mg/dL 06/14/2024 12:57 AM EST [facility] Comment:Glucose Concentratio n >=200 mg/dL plus symptoms is consistent with Diabetes Mellitus. Blood Urea Nitrogen 25(H) 10 - 20 mg/dL 06/14/2024 12:57 AM [facility] Creatinine 1.14 0.80 - 1.50 mg/dL 06/14/2024 12:57 AM [facility] Sodium 135 135 - 145 mMol/L 06/14/2024 12:57 AM [facility] Potassium 4.1 3.5 - 5.0 mMol/L 06/14/2024 12:57 AM [facility] Chloride 100 98 - 107 mMol/L 06/14/2024 12:57 AM [facility] Carbon Dioxide 25 22 - 31 mMol/L 06/14/2024 12:57 AM [facility] Anion Gap 10 5 - 15 mMol/L 06/14/2024 12:57 AM [facility] Calcium 9.5 8.5 - 10.5 mg/dL 06/14/2024 12:57 AM [facility] Est Glomerular Filtration Rate - Male 70 mL/min/1. 73 m?? 06/14/2024 12:57 AM [facility] Comment: [...] AM EST Shahnaz Scanlon MD CHEMISTRY ORDERABLES [facility] [place] [address] * Scan Doc: Implantable Devices (06/14/2024 12:00 AM EST) Narrative 06/14/2024 12:00 AM EST Ordered by an unspecified provider. Scanning Provider MEDIA MGR SCAN EXT O RDR/RSLT * POC, GLUCOSE (06/13/2024 11:12 PM EST) Glucometer, POC 104 65 - 199 mg/dL 06/13/2024 11:13 PM EST [facility] Comment:Supplemental ranges: <140 mg/dL before meals <180 mg/dL all other times of the day. Blood CAPILLARY BLOOD / Unknown 06/13/2024 11:12 PM EST 06/13/2024 11:13 PM EST Haja Byrnes MD POINT OF CARE TEST O NIKA Performing Organization Address City/[facility]/ZIP Co de Phone Number [facility] [place] [address] * (ABNORMAL) POC, GLUCOSE (06/13/2024 8:03 PM EST) Glucometer, POC 206(H) 65 - 199 mg/dL 06/13/2024 8:03 PM EST [facility] Comment:Supplemental ranges: <140 mg/dL before meals <180 mg/dL all other times of the day. Blood CAPILLARY BLOOD / Unknown 06/13/2024 8:03 PM EST 06/13/2024 8:03 PM EST Haja Byrnes MD POINT OF CARE TEST O NIKA Performing Organization Address City/[facility]/ZIP Co de Phone Number [facility] [place] [address] * Heparin (unfractionated) Level (06/13/2024 4:11 PM EST) UF Heparin 0.76 IU/mL 06/13/2024 4:24 PM EST [facility] [place]/ZIP Co de Phone Number [facility] [place] [address] * ABORH RECHECK (06/13/2024 4:11 PM EST) [facility] ABORH Recheck O POSITIVE 06/13/2024 4:50 PM EST [facility] Blood VENOUS BLOOD SPECIMEN / Unknown Venipuncture / Unknown 06/13/2024 4:11 PM EST 06/13/2024 4:19 PM EST Haja Byrnes MD BLOOD BANK LAB ORDER EUSEBIA Performing Organization Address City/[facility] Co de Phone Number [facility] [place] [address] * (ABNORMAL) POC, GLUCOSE (06/13/2024 4:09 PM EST) [facility] Glucometer, POC 216(H) 65 - 199 mg/dL 06/13/2024 4:10 PM EST [facility] Comment:Supplemental ranges: <140 mg/dL before meals <180 mg/dL all other times of the day. Blood CAPILLARY BLOOD / Unknown 06/13/2024 4:09 PM EST 06/13/2024 4:10 PM EST Hjaa Byrnes MD POINT OF CARE TEST O RDERABLES [facility] [place] [address] * Type and screen ([facility]/CGP/RAFITA) (06/13/2024 11:53 AM EST) Pathologist [facility] ABORH Type O POSITIVE 06/13/2024 1:16 PM EST [facility] PATIENT HISTORY Not Found 06/13/2024 1:16 PM EST [facility] Expires at [id number] on: 06/16/2024 06/13/2024 1:16 PM EST [facility] ANTIBODY SCREEN AUTOMATED Negative 06/13/2024 1:16 PM EST [facility] T&S only valid at [facility] 06/13/2024 1:16 PM EST [facility] Blood VENOUS BLOOD SPECIMEN / Unknown Venipuncture / Unknown 06/13/2024 11:53 AM EST 06/13/2024 11:56 AM EST Narrative [facility] - 06/13/2024 1:16 PM EST This Type and Screen result is only valid at the [facility] Haja Byrnes MD BLOOD BANK LAB ORDER EUSEBIA Performing Organization Address City/[facility]/ZIP Co de Phone Number [facility] [place] [address] * POC, GLUCOSE (06/13/2024 11:50 AM EST) [facility] Glucometer, POC 178 65 - 199 mg/dL 06/13/2024 11:51 AM EST [facility] Comment:Supplemental ranges: <140 mg/dL before meals <180 mg/dL all other times of the day. Blood CAPILLARY BLOOD / Unknown 06/13/2024 11:50 AM EST 06/13/2024 11:51 AM EST Haja Byrnes MD POINT OF CARE TEST O RDERABLES [facility] [place] [address] * XR Chest One View (06/13/2024 10:35 AM EST) WORKSTATION ID [id number] RAD Anatomical Region Laterality Modality Chest N/A [...] who have questions please contact the health palliative care specialist that requested your imaging first. ? Electronically signed by: Jyothi Simon MD, [facility] ([phone]), at 06/13/2024 10:43 AM Narrative 06/13/2024 10:43 [...] patients who have questions please contactthe health palliative care specialist that requested your imaging first. Electronically signed by: Jyothi Simon MD, [facility]([phone]), at 06/13/2024 10:43 AM Haja Byrnes MD IMG DX ORDERABLES * CARDIAC CATHETERIZATION (06/13/2024 9:02 AM EST) Anatomical Region Laterality Modality Other Narrative 06/15/2024 9:07 AM EST ?[facility] ? Cardiac Catheterization/Intervention Report ? Patient Name: Tyson, George L. ? Procedure Date: 06/13/2024 ? A #: [id number] ? Primary Physician: Nuha Shen I ? Case #: [id number] ? File Name: [id number] ? Catheterization Order Number: [id number] ? [facility] ? Final Report [place], [place] ? Patient Name: ? George L. Tyson ? ID#: ?[id number] ? : ?1955 ? Procedure Date: ? June 13, 2024 ?Case #: ? [id number] ? Room: ? 6 ? Case Physician: [...] ?was designated as ASA Class IV. The [facility] clinical frailty scale is 5: [...] procedure was Urgent. The indication for ?the roofing laborer visit is ACS greater than 24 [...] angiography, vascular ?ultrasound and IABP insertion in roofing laborer. ? Nuha Shen, M.D. ? Electronically Signed by: Nuha Shen, M.D. ? Report Finalized: 06/15/2024 ??08:59 ? Procedure Note Nuha Shen MD - 06/15/2024 [facility] Cardiac Catheterization/Intervention Report Patient Name: George Mehta Procedure Date: 06/13/2024 A #: [id number] Primary Physician: Nuha Shen I Case #: [id number] File Name: [id number] Catheterization Order Number: [id number] [facility] FinalReport [place], [place] Patient Name: George Mehta ID#:[id number] :1955 Procedure Date: June 13, 2024 Case [...] was designated as ASA Class IV. The [facility] clinical frailty scale is5: Mildly [...] diagnostic procedure was Urgent. The indicationfor the roofing laborer visit is ACS greater than 24 [...] site angiography,vascular ultrasound and IABP insertion in roofing laborer. Nuha Shen M.D. Electronically Signed by: Nuha Shen M.D. Report Finalized: 06/15/2024 08:59 Nuha Rojo MD CARDIAC CATH ORDERA BLES * Potassium (06/13/2024 7:48 AM EST) [facility] Potassium 4.5 3.5 - 5.0 mMol/L 06/13/2024 8:28 AM EST [facility] Blood VENOUS BLOOD SPECIMEN / Unknown Venipuncture / Unknown 06/13/2024 7:48 AM EST 06/13/2024 7:55 AM EST Shahnaz Scanlon MD CHEMISTRY ORDERABLES Performing Organization Address City/[facility]/ZIP Co de Phone Number [facility] [place] [address] * POC, GLUCOSE (06/13/2024 7:41 AM EST) Glucometer, POC 126 65 - 199 mg/dL 06/13/2024 7:41 AM EST [facility] Comment:Supplemental ranges: <140 mg/dL before meals <180 mg/dL all other times of the day. Blood CAPILLARY BLOOD / Unknown 06/13/2024 7:41 AM EST 06/13/2024 7:41 AM EST Ethel Carrillo MD POINT OF CARE TEST O RDERABLES Performing Organization Address City/[facility]/ZIP Co de Phone Number [facility] [place] [address] * POC, GLUCOSE (06/13/2024 3:25 AM EST) Glucometer, POC 99 65 - 199 mg/dL 06/13/2024 3:25 AM EST [facility] Comment:Supplemental ranges: <140 mg/dL before meals <180 mg/dL all other times of the day. Blood CAPILLARY BLOOD / Unknown 06/13/2024 3:25 AM EST 06/13/2024 3:25 AM EST Ethel Carrillo MD POINT OF CARE TEST O RDERABLES Performing Organization Address [facility] [place]/[facility] de Phone Number [facility] [place] [address] * Heparin (unfractionated) Level (06/13/2024 2:26 AM EST) Pathologist [facility] UF Heparin 0.60 IU/mL 06/13/2024 3:32 AM EST [facility] [place]/ZIP Co de Phone Number [facility] [place] [address] * (ABNORMAL) CBC (with Diff) (06/13/2024 2:26 AM EST) White Blood Cell 9.98(H) 4.00 - 9.50 x10(3)/mc L 06/13/2024 2:41 AM [facility] Red Blood Cell 5.11 4.58 - 5.54 x10(6)/mc L 06/13/2024 2:41 AM [facility] Hemoglobin 15.3 13.7 - 16.5 g/dL 06/13/2024 2:41 AM [facility] Hematocrit 47.1 40.5 - 48.5 % 06/13/2024 2:41 AM [facility] Mean Cell Volume 92.2 82.9 - 93.1 fL 06/13/2024 2:41 AM [facility] Mean Cell Hemoglobin 29.9 27.5 - 32.1 pg 06/13/2024 2:41 AM [facility] Mean Cell Hemoglobin Concentration 32.5 32.0 - 35.7 g/dL 06/13/2024 2:41 AM [facility] Platelet 194 145 - 357 x10(3)/mc L 06/13/2024 2:41 AM [facility] Mean Platelet Volume 9.7 7.6 - 12.9 fL 06/13/2024 2:41 AM [facility] RDW Standard Deviation 47.5(H) 36.0 - 45.0 fL 06/13/2024 2:41 AM [facility] RDW coefficient of variation 13.8 11.4 - 13.8 % 06/13/2024 2:41 AM [facility] NRBC% auto 0.0 % 06/13/2024 2:41 AM [facility] NRBC Absolute <0.01 <0.01 x10(3)/mc L 06/13/2024 2:41 AM [facility] Neutrophil % 48.8 % 06/13/2024 2:41 AM [facility] Neutrophil Absolute (ANC) - Automated 4.87 1.70 - 6.10 x10(3)/mc L 06/13/2024 2:41 AM [facility] Lymph % 35.3 % 06/13/2024 2:41 AM [facility] Lymph Absolute 3.52(H) 0.90 - 3.20 x10(3)/mc L 06/13/2024 2:41 AM [facility] Monocyte % 10.1 % 06/13/2024 2:41 AM [facility] Monocyte Absolute 1.01(H) 0.30 - 0.90 x10(3)/mc L 06/13/2024 2:41 AM [facility] Eos % 4.4 % 06/13/2024 2:41 AM [facility] Eos Absolute 0.44(H) 0.00 - 0.40 x10(3)/mc L 06/13/2024 2:41 AM [facility] Basophil % 0.9 % 06/13/2024 2:41 AM [facility] Baso Absolute 0.09 0.00 - 0.10 x10(3)/mc L 06/13/2024 2:41 AM [facility] Immature Gran % 0.5 % 2:41 AM [facility] Immature Gran Absolute 0.05(H) 0.00 - 0.04 x10(3)/mc L 06/13/2024 2:41 AM [facility] Blood VENOUS BLOOD SPECIMEN / Unknown Venipuncture / Unknown 06/13/2024 2:26 AM EST 06/13/2024 2:32 AM EST Shahnaz Scanlon MD HEMATOLOGY ORDERABLE S [facility] [place] [address] * Magnesium (06/13/2024 2:26 AM EST) Magnesium 0.78 0.69 - 1.07 mMol/L 06/13/2024 2:58 AM [facility] Blood VENOUS BLOOD SPECIMEN / Unknown Venipuncture / Unknown 06/13/2024 2:26 AM EST 06/13/2024 2:31 AM EST Shahnaz Scanlon MD CHEMISTRY ORDERABLES [facility] [place] [address] * (ABNORMAL) Basic Metabolic Panel (06/13/2024 2:26 AM EST) Glucose 121 65 - 199 mg/dL 06/13/2024 2:58 AM [facility] Comment:Glucose Concentratio n >=200 mg/dL plus symptoms is consistent with Diabetes Mellitus. Blood Urea Nitrogen 21(H) 10 - 20 mg/dL 06/13/2024 2:58 AM [facility] Creatinine 1.07 0.80 - 1.50 mg/dL 06/13/2024 2:58 AM [facility] Sodium 136 135 - 145 mMol/L 06/13/2024 2:58 AM [facility] Potassium 3.9 3.5 - 5.0 mMol/L 06/13/2024 2:58 AM [facility] Chloride 99 98 - 107 mMol/L 06/13/2024 2:58 AM [facility] Carbon Dioxide 27 22 - 31 mMol/L 06/13/2024 2:58 AM [facility] Anion Gap 10 5 - 15 mMol/L 06/13/2024 2:58 AM [facility] Calcium 9.7 8.5 - 10.5 mg/dL 06/13/2024 2:58 AM [facility] Est Glomerular Filtration Rate - Male 76 mL/min/1. 73 m?? 06/13/2024 2:58 AM EST [facility] [place]/ZIP Co de Phone Number [facility] [place] [address] * POC, GLUCOSE (06/12/2024 11:53 PM EST) Glucometer, POC 141 65 - 199 mg/dL 06/12/2024 11:54 PM EST [facility] Comment:Supplemental ranges: <140 mg/dL before meals <180 mg/dL all other times of the day. Blood CAPILLARY BLOOD / Unknown 06/12/2024 11:53 PM EST 06/12/2024 11:54 PM EST Ethel Carrillo MD POINT OF CARE TEST O RDERABLES [facility] [place] [address] * POC, GLUCOSE (06/12/2024 7:32 PM EST) Glucometer, POC 158 65 - 199 mg/dL 06/12/2024 7:32 PM EST [facility] Comment:Supplemental ranges: <140 mg/dL before meals <180 mg/dL all other times of the day. Blood CAPILLARY BLOOD / Unknown 06/12/2024 7:32 PM EST 06/12/2024 7:32 PM EST Ethel Carrillo MD POINT OF CARE TEST O NIKA Performing Organization Address City/[facility]/ZIP Co de Phone Number [facility] [place] [address] * POC, GLUCOSE (06/12/2024 3:41 PM EST) Glucometer, POC 113 65 - 199 mg/dL 06/12/2024 3:41 PM EST [facility] Comment:Supplemental ranges: <140 mg/dL before meals <180 mg/dL all other times of the day. Blood CAPILLARY BLOOD / Unknown 06/12/2024 3:41 PM EST 06/12/2024 3:41 PM EST Ethel Carrillo MD POINT OF CARE TEST Abimael MAHER Performing Organization Address [facility]/ZIP Co de Phone Number [facility] [place] [address] * Potassium (06/12/2024 2:19 PM EST) [facility] Potassium 4.5 3.5 - 5.0 mMol/L 06/12/2024 2:45 PM EST [facility] Blood VENOUS BLOOD SPECIMEN / Unknown Venipuncture / Unknown 06/12/2024 2:19 PM EST 06/12/2024 2:23 PM EST Shahnaz Scanlon MD CHEMISTRY ORDERABLES Performing Organization Address City/[facility]/ZIP Co de Phone Number [facility] [place] [address] * (ABNORMAL) POC, GLUCOSE (06/12/2024 11:21 AM EST) Glucometer, POC 207(H) 65 - 199 mg/dL 06/12/2024 11:21 AM EST [facility] Comment:Supplemental ranges: <140 mg/dL before meals <180 mg/dL all other times of the day. Blood CAPILLARY BLOOD / Unknown 06/12/2024 11:21 AM EST 06/12/2024 11:22 AM EST Ethel Carrillo MD POINT OF CARE TEST O NIKA Performing Organization Address City/[facility]/ZIP Co de Phone Number [facility] [place] [address] * POC, GLUCOSE (06/12/2024 8:00 AM EST) Glucometer, POC 169 65 - 199 mg/dL 06/12/2024 8:01 AM EST [facility] Comment:Supplemental ranges: <140 mg/dL before meals <180 mg/dL all other times of the day. Blood CAPILLARY BLOOD / Unknown 06/12/2024 8:00 AM EST 06/12/2024 8:01 AM EST Ethel Carrillo MD POINT OF CARE TEST O NIKA Performing Organization Address City/[facility]/ZIP Co de Phone Number [facility] [place] [address] * POC, GLUCOSE (06/12/2024 4:25 AM EST) Glucometer, POC 132 65 - 199 mg/dL 06/12/2024 4:26 AM EST [facility] Comment:Supplemental ranges: <140 mg/dL before meals <180 mg/dL all other times of the day. Blood CAPILLARY BLOOD / Unknown 06/12/2024 4:25 AM EST 06/12/2024 4:26 AM EST Ethel Carrillo MD POINT OF CARE TEST O NIKA [facility] [place] [address] * Heparin (unfractionated) Level (06/12/2024 3:03 AM EST) UF Heparin 0.55 IU/mL 06/12/2024 3:44 AM EST [facility] [...] City/State/[facility] Co de Phone Number [facility] [place] [address] * (ABNORMAL) CBC (with Diff) (06/12/2024 3:03 AM EST) Pathologist [facility] White Blood Cell 9.69(H) 4.00 - 9.50 x10(3)/mc L 06/12/2024 3:36 AM EST [facility] Red Blood Cell 5.05 4.58 - 5.54 x10(6)/mc L 06/12/2024 3:36 AM EST [facility] Hemoglobin 15.2 13.7 - 16.5 g/dL 06/12/2024 3:36 AM [facility] Hematocrit 46.6 40.5 - 48.5 % 06/12/2024 3:36 AM [facility] Mean Cell Volume 92.3 82.9 - 93.1 fL 06/12/2024 3:36 AM [facility] Mean Cell Hemoglobin 30.1 27.5 - 32.1 pg 06/12/2024 3:36 AM [facility] Mean Cell Hemoglobin Concentration 32.6 32.0 - 35.7 g/dL 06/12/2024 3:36 AM [facility] Platelet 194 145 - 357 x10(3)/mc L 06/12/2024 3:36 AM [facility] Mean Platelet Volume 10.1 7.6 - 12.9 fL 06/12/2024 3:36 AM [facility] RDW Standard Deviation 47.7(H) 36.0 - 45.0 fL 06/12/2024 3:36 AM [facility] RDW coefficient of variation 14.0(H) 11.4 - 13.8 % 06/12/2024 3:36 AM [facility] NRBC% auto 0.0 % 06/12/2024 3:36 AM [facility] NRBC Absolute <0.01 <0.01 x10(3)/mc L 06/12/2024 3:36 AM [facility] Neutrophil % 49.9 % 06/12/2024 3:36 AM [facility] Neutrophil Absolute (ANC) - Automated 4.82 1.70 - 6.10 x10(3)/mc L 06/12/2024 3:36 AM [facility] Lymph % 33.5 % 06/12/2024 3:36 AM [facility] Lymph Absolute 3.25(H) 0.90 - 3.20 x10(3)/mc L 06/12/2024 3:36 AM [facility] Monocyte % 11.1 % 06/12/2024 3:36 AM [facility] Monocyte Absolute 1.08(H) 0.30 - 0.90 x10(3)/mc L 06/12/2024 3:36 AM [facility] Eos % 4.1 % 06/12/2024 3:36 AM [facility] Eos Absolute 0.40 0.00 - 0.40 x10(3)/mc L 06/12/2024 3:36 AM [facility] Basophil % 0.8 % 06/12/2024 3:36 AM [facility] Baso Absolute 0.08 0.00 - 0.10 x10(3)/mc L 06/12/2024 3:36 AM [facility] Immature Gran % 0.6 % 3:36 AM [facility] Immature Gran Absolute 0.06(H) 0.00 - 0.04 x10(3)/mc L 06/12/2024 3:36 AM [facility] Blood VENOUS BLOOD SPECIMEN / Unknown Venipuncture / Unknown 06/12/2024 3:03 AM EST 06/12/2024 3:30 AM EST Shahnaz Scanlon MD HEMATOLOGY ORDERABLE S [facility] [place] [address] * Magnesium (06/12/2024 3:03 AM EST) Magnesium 0.79 0.69 - 1.07 mMol/L 06/12/2024 4:01 AM [facility] Blood VENOUS BLOOD SPECIMEN / Unknown Venipuncture / Unknown 06/12/2024 3:03 AM EST 06/12/2024 3:30 AM EST Shahnaz Scanlon MD CHEMISTRY ORDERABLES [facility] [place] [address] * (ABNORMAL) Basic Metabolic Panel (06/12/2024 3:03 AM EST) Glucose 132 65 - 199 mg/dL 06/12/2024 4:01 AM [facility] Comment:Glucose Concentratio n >=200 mg/dL plus symptoms is consistent with Diabetes Mellitus. Blood Urea Nitrogen 23(H) 10 - 20 mg/dL 06/12/2024 4:01 AM [facility] Creatinine 1.15 0.80 - 1.50 mg/dL 06/12/2024 4:01 AM [facility] Sodium 138 135 - 145 mMol/L 06/12/2024 4:01 AM [facility] Potassium 3.8 3.5 - 5.0 mMol/L 06/12/2024 4:01 AM [facility] Chloride 98 98 - 107 mMol/L 06/12/2024 4:01 AM [facility] Carbon Dioxide 29 22 - 31 mMol/L 06/12/2024 4:01 AM [facility] Anion Gap 11 5 - 15 mMol/L 06/12/2024 4:01 AM [facility] Calcium 9.5 8.5 - 10.5 mg/dL 06/12/2024 4:01 AM [facility] Est Glomerular Filtration Rate - Male 70 mL/min/1. 73 m?? 06/12/2024 4:01 AM [facility] Comment: [...] AM EST Shahnaz Scanlon MD CHEMISTRY ORDERABLES [facility] [place] [address] * POC, GLUCOSE (06/11/2024 11:56 PM EST) Glucometer, POC 135 65 - 199 mg/dL 06/11/2024 11:56 PM EST [facility] Comment:Supplemental ranges: <140 mg/dL before meals <180 mg/dL all other times of the day. Blood CAPILLARY BLOOD / Unknown 06/11/2024 11:56 PM EST 06/11/2024 11:56 PM EST Etehl Carrillo MD POINT OF CARE TEST O RDERAPIETER Performing Organization Address [facility] de Phone Number [facility] [place] [address] * (ABNORMAL) POC, GLUCOSE (06/11/2024 8:25 PM EST) Glucometer, POC 210(H) 65 - 199 mg/dL 06/11/2024 8:26 PM EST [facility] Comment:Supplemental ranges: <140 mg/dL before meals <180 mg/dL all other times of the day. Blood CAPILLARY BLOOD / Unknown 06/11/2024 8:25 PM EST 06/11/2024 8:26 PM EST Ethel Carrillo MD POINT OF CARE TEST O NIKA Performing Organization Address [facility] Co de Phone Number [facility] [place] [address] * POC, GLUCOSE (06/11/2024 4:24 PM EST) Glucometer, POC 81 65 - 199 mg/dL 06/11/2024 4:24 PM EST [facility] Comment:Supplemental ranges: <140 mg/dL before meals <180 mg/dL all other times of the day. Blood CAPILLARY BLOOD / Unknown 06/11/2024 4:24 PM EST 06/11/2024 4:25 PM EST Ethel Carrillo MD POINT OF CARE TEST O NIKA Performing Organization Address [facility] de Phone Number [facility] [place] [address] * (ABNORMAL) POC, GLUCOSE (06/11/2024 11:08 AM EST) Glucometer, POC 233(H) 65 - 199 mg/dL 06/11/2024 11:08 AM EST [facility] Comment:Supplemental ranges: <140 mg/dL before meals <180 mg/dL all other times of the day. Blood CAPILLARY BLOOD / Unknown 06/11/2024 11:08 AM EST 06/11/2024 11:08 AM EST Ethel Carrillo MD POINT OF CARE TEST O NIKA Performing Organization Address [facility] de Phone Number [facility] [place] [address] * POC, GLUCOSE (06/11/2024 7:48 AM EST) Glucometer, POC 184 65 - 199 mg/dL 06/11/2024 7:49 AM EST [facility] Comment:Supplemental ranges: <140 mg/dL before meals <180 mg/dL all other times of the day. Blood CAPILLARY BLOOD / Unknown 06/11/2024 7:48 AM EST 06/11/2024 7:49 AM EST Melida Valdes MD POINT OF CARE TEST O NIKA Performing Organization Address [facility] Co de Phone Number [facility] [place] [address] * Heparin (unfractionated) Level (06/11/2024 5:31 AM EST) UF Heparin 0.55 IU/mL 06/11/2024 6:10 AM EST [facility] MD HEMATOLOGY ORDERABLE S Performing Organization Address [facility] Co de Phone Number [facility] [place] [address] * POC, GLUCOSE (06/11/2024 3:57 AM EST) Glucometer, POC 132 65 - 199 mg/dL 06/11/2024 3:58 AM EST [facility] Comment:Supplemental ranges: <140 mg/dL before meals <180 mg/dL all other times of the day. Blood CAPILLARY BLOOD / Unknown 06/11/2024 3:57 AM EST 06/11/2024 3:58 AM EST Melida Valdes MD POINT OF CARE TEST O RDERABLES Performing Organization Address [facility] Co de Phone Number [facility] [place] [address] * (ABNORMAL) CBC (with Diff) (06/11/2024 2:13 AM EST) White Blood Cell 9.91(H) 4.00 - 9.50 x10(3)/mc L 06/11/2024 2:26 AM [facility] Red Blood Cell 5.13 4.58 - 5.54 x10(6)/mc L 06/11/2024 2:26 AM [facility] Hemoglobin 15.3 13.7 - 16.5 g/dL 06/11/2024 2:26 AM [facility] Hematocrit 47.5 40.5 - 48.5 % 06/11/2024 2:26 AM [facility] Mean Cell Volume 92.6 82.9 - 93.1 fL 06/11/2024 2:26 AM [facility] Mean Cell Hemoglobin 29.8 27.5 - 32.1 pg 06/11/2024 2:26 AM [facility] Mean Cell Hemoglobin Concentration 32.2 32.0 - 35.7 g/dL 06/11/2024 2:26 AM [facility] Platelet 184 145 - 357 x10(3)/mc L 06/11/2024 2:26 AM [facility] Mean Platelet Volume 9.7 7.6 - 12.9 fL 06/11/2024 2:26 AM [facility] RDW Standard Deviation 48.0(H) 36.0 - 45.0 fL 06/11/2024 2:26 AM [facility] RDW coefficient of variation 14.0(H) 11.4 - 13.8 % 06/11/2024 2:26 AM [facility] NRBC% auto 0.0 % 06/11/2024 2:26 AM [facility] NRBC Absolute <0.01 <0.01 x10(3)/mc L 06/11/2024 2:26 AM [facility] Neutrophil % 50.3 % 06/11/2024 2:26 AM [facility] Neutrophil Absolute (ANC) - Automated 4.98 1.70 - 6.10 x10(3)/mc L 06/11/2024 2:26 AM [facility] Lymph % 33.5 % 06/11/2024 2:26 AM EST [facility] Lymph Absolute 3.32(H) 0.90 - 3.20 x10(3)/mc L 06/11/2024 2:26 AM EST [facility] Monocyte % 10.9 % 06/11/2024 2:26 AM [facility] Monocyte Absolute 1.08(H) 0.30 - 0.90 x10(3)/mc L 06/11/2024 2:26 AM EST [facility] Eos % 4.1 % 06/11/2024 2:26 AM [facility] Eos Absolute 0.41(H) 0.00 - 0.40 x10(3)/mc L 06/11/2024 2:26 AM [facility] Basophil % 0.7 % 06/11/2024 2:26 AM [facility] Baso Absolute 0.07 0.00 - 0.10 x10(3)/mc L 06/11/2024 2:26 AM [facility] Immature Gran % 0.5 % 2:26 AM [facility] Immature Gran Absolute 0.05(H) 0.00 - 0.04 x10(3)/mc L 06/11/2024 2:26 AM [facility] Blood VENOUS BLOOD SPECIMEN / Unknown Venipuncture / Unknown 06/11/2024 2:13 AM EST 06/11/2024 2:19 AM EST Shahnaz Scanlon MD HEMATOLOGY ORDERABLE S [facility] [place] [address] * Magnesium (06/11/2024 2:13 AM EST) Magnesium 0.83 0.69 - 1.07 mMol/L 06/11/2024 2:51 AM [facility] Blood VENOUS BLOOD SPECIMEN / Unknown Venipuncture / Unknown 06/11/2024 2:13 AM EST 06/11/2024 2:19 AM EST Shahnaz Scanlon MD CHEMISTRY ORDERABLES [facility] [place] [address] * (ABNORMAL) Basic Metabolic Panel (06/11/2024 2:13 AM EST) Glucose 148 65 - 199 mg/dL 06/11/2024 2:51 AM EST [facility] Comment:Glucose Concentratio n >=200 mg/dL plus symptoms is consistent with Diabetes Mellitus. Blood Urea Nitrogen 24(H) 10 - 20 mg/dL 06/11/2024 2:51 AM [facility] Creatinine 1.06 0.80 - 1.50 mg/dL 06/11/2024 2:51 AM [facility] Sodium 134(L) 135 - 145 mMol/L 06/11/2024 2:51 AM EST [facility] Potassium 4.1 3.5 - 5.0 mMol/L 06/11/2024 2:51 AM [facility] Chloride 96(L) 98 - 107 mMol/L 06/11/2024 2:51 AM [facility] Carbon Dioxide 28 22 - 31 mMol/L 06/11/2024 2:51 AM EST [facility] Anion Gap 10 5 - 15 mMol/L 06/11/2024 2:51 AM [facility] Calcium 9.4 8.5 - 10.5 mg/dL 06/11/2024 2:51 AM EST [facility] Est Glomerular Filtration Rate - Male 77 mL/min/1. 73 m?? 06/11/2024 2:51 AM [facility] Comment: [...] Scanlon MD CHEMISTRY ORDERABLES Performing Organization Address [facility] Co de Phone Number [facility] [place] [place] [address] * POC, GLUCOSE (06/11/2024 12:50 AM EST) Glucometer, POC 144 65 - 199 mg/dL 06/11/2024 12:51 AM EST [facility] Comment:Supplemental ranges: <140 mg/dL before meals <180 mg/dL all other times of the day. Blood CAPILLARY BLOOD / Unknown 06/11/2024 12:50 AM EST 06/11/2024 12:51 AM EST Melida Valdes MD POINT OF CARE TEST O RDERAPIETER Performing Organization Address [facility] Co de Phone Number [facility] [place] [address] * (ABNORMAL) POC, GLUCOSE (06/10/2024 7:22 PM EST) Glucometer, POC 236(H) 65 - 199 mg/dL 06/10/2024 7:22 PM EST [facility] Comment:Supplemental ranges: <140 mg/dL before meals <180 mg/dL all other times of the day. Blood CAPILLARY BLOOD / Unknown 06/10/2024 7:22 PM EST 06/10/2024 7:22 PM EST Melida Valdes MD POINT OF CARE TEST O RDERABLES [facility] [place] [address] * (ABNORMAL) Blood Gas, Venous (06/10/2024 5:42 PM EST) pH, Venous 7.34 7.32 - 7.42 06/10/2024 5:50 PM EST [facility] PCO2, Venous 52 38 - 58 mmHg 06/10/2024 5:50 PM EST [facility] PO2, Venous 24 16 - 65 mmHg 06/10/2024 5:50 PM EST [facility] Bicarbonate, Venous 27.4 22 - 31 mmol/L 06/10/2024 5:50 PM [facility] Base Excess, Venous 1.7(L) 1.9 - 4.5 mmol/L 06/10/2024 5:50 PM [facility] Hemoglobin, Venous 16.8(H) 13.7 - 16.5 g/dL 06/10/2024 5:50 PM [facility] Oxyhemoglobin, Venous 39.0 % 06/10/2024 5:50 PM [facility] Carboxyhemoglobin , Venous 0.3 % 06/10/2024 5:50 PM [facility] Comment: Nonsmokers: 0.5-1.5% COHB [...] - 1.33 mmol/L 06/10/2024 5:50 PM EST [facility] Glucose, Venous 114 65 - 199 mg/dL 06/10/2024 5:50 PM EST [facility] Comment:Glucose Concentratio n >=200 mg/dL plus symptoms is consistent with Diabetes Mellitus. Lactate, Venous 1.1 0.5 - 2.2 mmol/L 06/10/2024 5:50 PM EST [facility] Blood Gas Source Venous 06/10/20 5:50 PM [facility] Blood VENOUS BLOOD SPECIMEN / Unknown Blood Gas Venous / Unknown 06/10/2024 5:42 PM EST 06/10/2024 5:47 PM EST Melida Valdes MD CHEMISTRY ORDERABLES Performing Organization Address [facility] Co de Phone Number [facility] [place] [address] * POC, GLUCOSE (06/10/2024 5:35 PM EST) Glucometer, POC 123 65 - 199 mg/dL 06/10/2024 5:35 PM EST [facility] Comment:Supplemental ranges: <140 mg/dL before meals <180 mg/dL all other times of the day. Blood CAPILLARY BLOOD / Unknown 06/10/2024 5:35 PM EST 06/10/2024 5:35 PM EST Melida Valdes MD POINT OF CARE TEST O RDERABLES [facility] [place] [address] * (ABNORMAL) POC, GLUCOSE (06/10/2024 11:25 AM EST) Glucometer, POC 216(H) 65 - 199 mg/dL 06/10/2024 11:25 AM EST [facility] Comment:Supplemental ranges: <140 mg/dL before meals <180 mg/dL all other times of the day. Blood CAPILLARY BLOOD / Unknown 06/10/2024 11:25 AM EST 06/10/2024 11:25 AM EST Melida Valdes MD POINT OF CARE TEST O NIKA Performing Organization Address [facility] Center/[facility] Co de Phone Number [facility] [place] [address] * (ABNORMAL) POC, GLUCOSE (06/10/2024 7:46 AM EST) Glucometer, POC 206(H) 65 - 199 mg/dL 06/10/2024 7:46 AM EST [facility] Comment:Supplemental ranges: <140 mg/dL before meals <180 mg/dL all other times of the day. Blood CAPILLARY BLOOD / Unknown 06/10/2024 7:46 AM EST 06/10/2024 7:46 AM EST Melida Valdes MD POINT OF CARE TEST O NIKA Performing Organization Address [facility] Co de Phone Number [facility] [place] [address] * POC, GLUCOSE (06/10/2024 4:23 AM EST) Glucometer, POC 154 65 - 199 mg/dL 06/10/2024 4:24 AM EST [facility] Comment:Supplemental ranges: <140 mg/dL before meals <180 mg/dL all other times of the day. Blood CAPILLARY BLOOD / Unknown 06/10/2024 4:23 AM EST 06/10/2024 4:24 AM EST Melida Valdes MD POINT OF CARE TEST O NIKA Performing Organization Address [facility] Co de Phone Number [facility] [place] [address] * (ABNORMAL) CBC (with Diff) (06/10/2024 1:55 AM EST) White Blood Cell 9.00 4.00 - 9.50 x10(3)/mc L 06/10/2024 2:14 AM [facility] Red Blood Cell 5.03 4.58 - 5.54 x10(6)/mc L 06/10/2024 2:14 AM [facility] Hemoglobin 14.9 13.7 - 16.5 g/dL 06/10/2024 2:14 AM [facility] Hematocrit 46.4 40.5 - 48.5 % 06/10/2024 2:14 AM [facility] Mean Cell Volume 92.2 82.9 - 93.1 fL 06/10/2024 2:14 AM [facility] Mean Cell Hemoglobin 29.6 27.5 - 32.1 pg 06/10/2024 2:14 AM [facility] Mean Cell Hemoglobin Concentration 32.1 32.0 - 35.7 g/dL 06/10/2024 2:14 AM [facility] Platelet 191 145 - 357 x10(3)/mc L 06/10/2024 2:14 AM [facility] Mean Platelet Volume 9.7 7.6 - 12.9 fL 06/10/2024 2:14 AM [facility] RDW Standard Deviation 47.4(H) 36.0 - 45.0 fL 06/10/2024 2:14 AM [facility] RDW coefficient of variation 14.1(H) 11.4 - 13.8 % 06/10/2024 2:14 AM [facility] NRBC% auto 0.0 % 06/10/2024 2:14 AM [facility] NRBC Absolute <0.01 <0.01 x10(3)/mc L 06/10/2024 2:14 AM [facility] Neutrophil % 48.7 % 06/10/2024 2:14 AM [facility] Neutrophil Absolute (ANC) - Automated 4.39 1.70 - 6.10 x10(3)/mc L 06/10/2024 2:14 AM [facility] Lymph % 34.9 % 06/10/2024 2:14 AM EST [facility] Lymph Absolute 3.14 0.90 - 3.20 x10(3)/mc L 06/10/2024 2:14 AM [facility] Monocyte % 11.2 % 06/10/2024 2:14 AM [facility] Monocyte Absolute 1.01(H) 0.30 - 0.90 x10(3)/mc L 06/10/2024 2:14 AM EST [facility] Eos % 3.6 % 06/10/2024 2:14 AM [facility] Eos Absolute 0.32 0.00 - 0.40 x10(3)/mc L 06/10/2024 2:14 AM [facility] Basophil % 1.0 % 06/10/2024 2:14 AM [facility] Baso Absolute 0.09 0.00 - 0.10 x10(3)/mc L 06/10/2024 2:14 AM [facility] Immature Gran % 0.6 % 2:14 AM [facility] Immature Gran Absolute 0.05(H) 0.00 - 0.04 x10(3)/mc L 06/10/2024 2:14 AM [facility] Blood VENOUS BLOOD SPECIMEN / Unknown Venipuncture / Unknown 06/10/2024 1:55 AM EST 06/10/2024 2:05 AM EST Shahnaz Scanlon MD HEMATOLOGY ORDERABLE S [facility] [place] [address] * Magnesium (06/10/2024 1:55 AM EST) Magnesium 0.83 0.69 - 1.07 mMol/L 06/10/2024 2:37 AM [facility] Blood VENOUS BLOOD SPECIMEN / Unknown Venipuncture / Unknown 06/10/2024 1:55 AM EST 06/10/2024 2:05 AM EST Shahnaz Scanlon MD CHEMISTRY ORDERABLES [facility] [place] [address] * (ABNORMAL) Basic Metabolic Panel (06/10/2024 1:55 AM EST) Glucose 140 65 - 199 mg/dL 06/10/2024 2:37 AM EST [facility] Comment:Glucose Concentratio n >=200 mg/dL plus symptoms is consistent with Diabetes Mellitus. Blood Urea Nitrogen 24(H) 10 - 20 mg/dL 06/10/2024 2:37 AM [facility] Creatinine 1.06 0.80 - 1.50 mg/dL 06/10/2024 2:37 AM [facility] Sodium 138 135 - 145 mMol/L 06/10/2024 2:37 AM [facility] Potassium 4.1 3.5 - 5.0 mMol/L 06/10/2024 2:37 AM [facility] Chloride 100 98 - 107 mMol/L 06/10/2024 2:37 AM [facility] Carbon Dioxide 25 22 - 31 mMol/L 06/10/2024 2:37 AM [facility] Anion Gap 13 5 - 15 mMol/L 06/10/2024 2:37 AM [facility] Calcium 9.5 8.5 - 10.5 mg/dL 06/10/2024 2:37 AM [facility] Est Glomerular Filtration Rate - Male 77 mL/min/1. 73 m?? 06/10/2024 2:37 AM [facility] Comment: [...] Scanlon MD CHEMISTRY ORDERABLES Performing Organization Address [facility] Co de Phone Number [facility] [place] [address] * Heparin (unfractionated) Level (06/10/2024 1:54 AM EST) UF Heparin 0.56 IU/mL 06/10/2024 2:41 AM EST [facility] [...] MD HEMATOLOGY ORDERABLE S Performing Organization Address [facility]/ZIP Co de Phone Number [facility] [place] [address] * POC, GLUCOSE (06/10/2024 12:05 AM EST) Glucometer, POC 125 65 - 199 mg/dL 06/10/2024 12:05 AM EST [facility] Comment:Supplemental ranges: <140 mg/dL before meals <180 mg/dL all other times of the day. Blood CAPILLARY BLOOD / Unknown 06/10/2024 12:05 AM EST 06/10/2024 12:05 AM EST Melida Valdes MD POINT OF CARE TEST O NIKA Performing Organization Address City/[facility]/ZIP Co de Phone Number [facility] [place] [address] * POC, GLUCOSE (06/09/2024 8:36 PM EST) Glucometer, POC 197 65 - 199 mg/dL 06/09/2024 8:36 PM EST [facility] Comment:Supplemental ranges: <140 mg/dL before meals <180 mg/dL all other times of the day. Blood CAPILLARY BLOOD / Unknown 06/09/2024 8:36 PM EST 06/09/2024 8:36 PM EST Melida Valdes MD POINT OF CARE TEST O NIKA Performing Organization Address [facility]/ZIP Co de Phone Number [facility] [place] [address] * POC, GLUCOSE (06/09/2024 5:27 PM EST) Glucometer, POC 174 65 - 199 mg/dL 06/09/2024 5:28 PM EST [facility] Comment:Supplemental ranges: <140 mg/dL before meals <180 mg/dL all other times of the day. Blood CAPILLARY BLOOD / Unknown 06/09/2024 5:27 PM EST 06/09/2024 5:28 PM EST Melida Valdes MD POINT OF CARE TEST O RDERABLES Performing Organization Address [facility] Co de Phone Number [facility] [place] [address] * (ABNORMAL) POC, GLUCOSE (06/09/2024 11:52 AM EST) Glucometer, POC 211(H) 65 - 199 mg/dL 06/09/2024 11:52 AM EST [facility] Comment:Supplemental ranges: <140 mg/dL before meals <180 mg/dL all other times of the day. Blood CAPILLARY BLOOD / Unknown 06/09/2024 11:52 AM EST 06/09/2024 11:52 AM EST Melida Valdes MD POINT OF CARE TEST O RDERABLES Performing Organization Address [facility] Co de Phone Number [facility] [place] [address] * Potassium (06/09/2024 8:25 AM EST) Potassium 4.6 3.5 - 5.0 mMol/L 06/09/2024 10:09 AM EST [facility] Blood VENOUS BLOOD SPECIMEN / Unknown Venipuncture / Unknown 06/09/2024 8:25 AM EST 06/09/2024 8:42 AM EST Shahnaz Scanlon MD CHEMISTRY ORDERABLES Performing Organization Address City/[facility] Co de Phone Number [facility] [place] [address] * (ABNORMAL) POC, GLUCOSE (06/09/2024 8:10 AM EST) Glucometer, POC 209(H) 65 - 199 mg/dL 06/09/2024 8:10 AM EST [facility] Comment:Supplemental ranges: <140 mg/dL before meals <180 mg/dL all other times of the day. Blood CAPILLARY BLOOD / Unknown 06/09/2024 8:10 AM EST 06/09/2024 8:11 AM EST Melida Valdes MD POINT OF CARE TEST O RDBECKIE Performing Organization Address [facility] Co de Phone Number [facility] [place] [address] * POC, GLUCOSE (06/09/2024 4:40 AM EST) Glucometer, POC 131 65 - 199 mg/dL 06/09/2024 4:40 AM EST [facility] Comment:Supplemental ranges: <140 mg/dL before meals <180 mg/dL all other times of the day. Blood CAPILLARY BLOOD / Unknown 06/09/2024 4:40 AM EST 06/09/2024 4:41 AM EST Melida Valdes MD POINT OF CARE TEST O NIKA Performing Organization Address [facility] Co de Phone Number [facility] [place] [address] * Heparin (unfractionated) Level (06/09/2024 2:12 AM EST) UF Heparin 0.55 IU/mL 06/09/2024 2:33 AM EST [facility] EST Shahnaz Scanlon MD HEMATOLOGY ORDERABLE S [facility] [place] [address] * (ABNORMAL) CBC (with Diff) (06/09/2024 2:12 AM EST) White Blood Cell 9.80(H) 4.00 - 9.50 x10(3)/mc L 06/09/2024 2:44 AM [facility] Red Blood Cell 5.18 4.58 - 5.54 x10(6)/mc L 06/09/2024 2:44 AM [facility] Hemoglobin 15.5 13.7 - 16.5 g/dL 06/09/2024 2:44 AM [facility] Hematocrit 47.4 40.5 - 48.5 % 06/09/2024 2:44 AM [facility] Mean Cell Volume 91.5 82.9 - 93.1 fL 06/09/2024 2:44 AM [facility] Mean Cell Hemoglobin 29.9 27.5 - 32.1 pg 06/09/2024 2:44 AM [facility] Mean Cell Hemoglobin Concentration 32.7 32.0 - 35.7 g/dL 06/09/2024 2:44 AM [facility] Platelet 205 145 - 357 x10(3)/mc L 06/09/2024 2:44 AM [facility] Mean Platelet Volume 9.7 7.6 - 12.9 fL 06/09/2024 2:44 AM [facility] RDW Standard Deviation 47.7(H) 36.0 - 45.0 fL 06/09/2024 2:44 AM [facility] RDW coefficient of variation 14.1(H) 11.4 - 13.8 % 06/09/2024 2:44 AM [facility] NRBC% auto 0.0 % 06/09/2024 2:44 AM [facility] NRBC Absolute <0.01 <0.01 x10(3)/mc L 06/09/2024 2:44 AM [facility] Neutrophil % 53.0 % 06/09/2024 2:44 AM [facility] Neutrophil Absolute (ANC) - Automated 5.19 1.70 - 6.10 x10(3)/mc L 06/09/2024 2:44 AM [facility] Lymph % 31.6 % 06/09/2024 2:44 AM [facility] Lymph Absolute 3.10 0.90 - 3.20 x10(3)/mc L 06/09/2024 2:44 AM [facility] Monocyte % 11.0 % 06/09/2024 2:44 AM [facility] Monocyte Absolute 1.08(H) 0.30 - 0.90 x10(3)/mc L 06/09/2024 2:44 AM [facility] Eos % 2.9 % 06/09/2024 2:44 AM [facility] Eos Absolute 0.28 0.00 - 0.40 x10(3)/mc L 06/09/2024 2:44 AM [facility] Basophil % 0.9 % 06/09/2024 2:44 AM [facility] Baso Absolute 0.09 0.00 - 0.10 x10(3)/mc L 06/09/2024 2:44 AM [facility] Immature Gran % 0.6 % 2:44 AM [facility] Immature Gran Absolute 0.06(H) 0.00 - 0.04 x10(3)/mc L 06/09/2024 2:44 AM [facility] Blood VENOUS BLOOD SPECIMEN / Unknown Venipuncture / Unknown 06/09/2024 2:12 AM EST 06/09/2024 2:21 AM EST Shahnaz Scanlon MD HEMATOLOGY ORDERABLE S [facility] [place] [address] * Magnesium (06/09/2024 2:12 AM EST) Pathologist [facility] Magnesium 0.83 0.69 - 1.07 mMol/L 06/09/2024 2:52 AM EST [facility] Blood VENOUS BLOOD SPECIMEN / Unknown Venipuncture / Unknown 06/09/2024 2:12 AM EST 06/09/2024 2:22 AM EST Shahnaz Scanlon MD CHEMISTRY ORDERABLES Performing Organization Address City/[facility]/ZIP Co de Phone Number [facility] [place] [address] * (ABNORMAL) Basic Metabolic Panel (06/09/2024 2:12 AM EST) [facility] Glucose 147 65 - 199 mg/dL 06/09/2024 2:52 AM [facility] Comment:Glucose Concentratio n >=200 mg/dL plus symptoms is consistent with Diabetes Mellitus. Blood Urea Nitrogen 24(H) 10 - 20 mg/dL 06/09/2024 2:52 AM [facility] Creatinine 1.11 0.80 - 1.50 mg/dL 06/09/2024 2:52 AM [facility] Sodium 136 135 - 145 mMol/L 06/09/2024 2:52 AM [facility] Potassium 3.9 3.5 - 5.0 mMol/L 06/09/2024 2:52 AM [facility] Chloride 98 98 - 107 mMol/L 06/09/2024 2:52 AM [facility] Carbon Dioxide 27 22 - 31 mMol/L 06/09/2024 2:52 AM [facility] Anion Gap 11 5 - 15 mMol/L 06/09/2024 2:52 AM [facility] Calcium 9.7 8.5 - 10.5 mg/dL 06/09/2024 2:52 AM EST [facility] Est Glomerular Filtration Rate - Male 73 mL/min/1. 73 m?? 06/09/2024 2:52 AM EST [facility] [place]/ZIP Co de Phone Number [facility] [place] [address] * POC, GLUCOSE (06/09/2024 12:34 AM EST) Glucometer, POC 186 65 - 199 mg/dL 06/09/2024 12:34 AM EST [facility] Comment:Supplemental ranges: <140 mg/dL before meals <180 mg/dL all other times of the day. Blood CAPILLARY BLOOD / Unknown 06/09/2024 12:34 AM EST 06/09/2024 12:34 AM EST Melida Valdes MD POINT OF CARE TEST O RDERABLES Performing Organization Address City/[facility]/ZIP Co de Phone Number [facility] [place] [address] * POC, GLUCOSE (06/08/2024 8:27 PM EST) Glucometer, POC 176 65 - 199 mg/dL 06/08/2024 8:28 PM EST [facility] Comment:Supplemental ranges: <140 mg/dL before meals <180 mg/dL all other times of the day. Blood CAPILLARY BLOOD / Unknown 06/08/2024 8:27 PM EST 06/08/2024 8:28 PM EST Melida Valdes MD POINT OF CARE TEST O NIKA Performing Organization Address City/[facility] Co de Phone Number [facility] [place] [address] * POC, GLUCOSE (06/08/2024 4:16 PM EST) Glucometer, POC 159 65 - 199 mg/dL 06/08/2024 4:16 PM EST [facility] Comment:Supplemental ranges: <140 mg/dL before meals <180 mg/dL all other times of the day. Blood CAPILLARY BLOOD / Unknown 06/08/2024 4:16 PM EST 06/08/2024 4:16 PM EST Melida Valdes MD POINT OF CARE TEST O NIKA Performing Organization Address [facility] Co de Phone Number [facility] [place] [address] * (ABNORMAL) POC, GLUCOSE (06/08/2024 12:35 PM EST) Glucometer, POC 226(H) 65 - 199 mg/dL 06/08/2024 12:35 PM EST [facility] Comment:Supplemental ranges: <140 mg/dL before meals <180 mg/dL all other times of the day. Blood CAPILLARY BLOOD / Unknown 06/08/2024 12:35 PM EST 06/08/2024 12:35 PM EST Melida Valdes MD POINT OF CARE TEST O NIKA Performing Organization Address City/[facility]/ZIP Co de Phone Number [facility] [place] [place] [address] * POC, GLUCOSE (06/08/2024 8:10 AM EST) Glucometer, POC 190 65 - 199 mg/dL 06/08/2024 8:14 AM EST [facility] Comment:Supplemental ranges: <140 mg/dL before meals <180 mg/dL all other times of the day. Blood CAPILLARY BLOOD / Unknown 06/08/2024 8:10 AM EST 06/08/2024 8:14 AM EST Melida Valdes MD POINT OF CARE TEST O NIKA Performing Organization Address City/[facility]/ZIP Co de Phone Number [facility] [place] [address] * POC, GLUCOSE (06/08/2024 4:09 AM EST) Glucometer, POC 151 65 - 199 mg/dL 06/08/2024 4:10 AM EST [facility] Comment:Supplemental ranges: <140 mg/dL before meals <180 mg/dL all other times of the day. Blood CAPILLARY BLOOD / Unknown 06/08/2024 4:09 AM EST 06/08/2024 4:10 AM EST Melida Valdes MD POINT OF CARE TEST Abimael MAHER Performing Organization Address City/[facility]/ZIP Co de Phone Number [facility] [place] [address] * Heparin (unfractionated) Level (06/08/2024 3:21 AM EST) UF Heparin 0.46 IU/mL 06/08/2024 3:41 AM EST [facility] EST Shahnaz Scanlon MD HEMATOLOGY ORDERABLE S [facility] [place] [address] * (ABNORMAL) CBC (with Diff) (06/08/2024 3:21 AM EST) White Blood Cell 9.92(H) 4.00 - 9.50 x10(3)/mc L 06/08/2024 3:34 AM [facility] Red Blood Cell 5.09 4.58 - 5.54 x10(6)/mc L 06/08/2024 3:34 AM [facility] Hemoglobin 15.1 13.7 - 16.5 g/dL 06/08/2024 3:34 AM [facility] Hematocrit 46.7 40.5 - 48.5 % 06/08/2024 3:34 AM [facility] Mean Cell Volume 91.7 82.9 - 93.1 fL 06/08/2024 3:34 AM [facility] Mean Cell Hemoglobin 29.7 27.5 - 32.1 pg 06/08/2024 3:34 AM [facility] Mean Cell Hemoglobin Concentration 32.3 32.0 - 35.7 g/dL 06/08/2024 3:34 AM [facility] Platelet 203 145 - 357 x10(3)/mc L 06/08/2024 3:34 AM [facility] Mean Platelet Volume 9.4 7.6 - 12.9 fL 06/08/2024 3:34 AM [facility] RDW Standard Deviation 46.9(H) 36.0 - 45.0 fL 06/08/2024 3:34 AM [facility] RDW coefficient of variation 13.8 11.4 - 13.8 % 06/08/2024 3:34 AM [facility] NRBC% auto 0.0 % 06/08/2024 3:34 AM [facility] NRBC Absolute <0.01 <0.01 x10(3)/mc L 06/08/2024 3:34 AM [facility] Neutrophil % 56.8 % 06/08/2024 3:34 AM [facility] Neutrophil Absolute (ANC) - Automated 5.63 1.70 - 6.10 x10(3)/mc L 06/08/2024 3:34 AM [facility] Lymph % 27.3 % 06/08/2024 3:34 AM [facility] Lymph Absolute 2.71 0.90 - 3.20 x10(3)/mc L 06/08/2024 3:34 AM [facility] Monocyte % 11.2 % 06/08/2024 3:34 AM [facility] Monocyte Absolute 1.11(H) 0.30 - 0.90 x10(3)/mc L 06/08/2024 3:34 AM [facility] Eos % 3.4 % 06/08/2024 3:34 AM [facility] Eos Absolute 0.34 0.00 - 0.40 x10(3)/mc L 06/08/2024 3:34 AM [facility] Basophil % 0.8 % 06/08/2024 3:34 AM [facility] Baso Absolute 0.08 0.00 - 0.10 x10(3)/mc L 06/08/2024 3:34 AM [facility] Immature Gran % 0.5 % 3:34 AM EST [facility] Immature Gran Absolute 0.05(H) 0.00 - 0.04 x10(3)/mc L 06/08/2024 3:34 AM [facility] Blood VENOUS BLOOD SPECIMEN / Unknown Venipuncture / Unknown 06/08/2024 3:21 AM EST 06/08/2024 3:27 AM EST Shahnaz Scanlon MD HEMATOLOGY ORDERABLE S Performing Organization Address [facility] Co de Phone Number [facility] [place] [address] * Magnesium (06/08/2024 3:21 AM EST) Magnesium 0.84 0.69 - 1.07 mMol/L 06/08/2024 3:59 AM [facility] Blood VENOUS BLOOD SPECIMEN / Unknown Venipuncture / Unknown 06/08/2024 3:21 AM EST 06/08/2024 3:27 AM EST Shahnaz Scanlon MD CHEMISTRY ORDERABLES Performing Organization Address [facility] Co de Phone Number [facility] [place] [address] * (ABNORMAL) Basic Metabolic Panel (06/08/2024 3:21 AM EST) Glucose 173 65 - 199 mg/dL 06/08/2024 3:59 AM [facility] Comment:Glucose Concentratio n >=200 mg/dL plus symptoms is consistent with Diabetes Mellitus. Blood Urea Nitrogen 25(H) 10 - 20 mg/dL 06/08/2024 3:59 AM [facility] Creatinine 1.09 0.80 - 1.50 mg/dL 06/08/2024 3:59 AM [facility] Sodium 135 135 - 145 mMol/L 06/08/2024 3:59 AM [facility] Potassium 4.2 3.5 - 5.0 mMol/L 06/08/2024 3:59 AM EST [facility] Chloride 98 98 - 107 mMol/L 06/08/2024 3:59 AM [facility] Carbon Dioxide 25 22 - 31 mMol/L 06/08/2024 3:59 AM [facility] Anion Gap 12 5 - 15 mMol/L 06/08/2024 3:59 AM [facility] Calcium 9.4 8.5 - 10.5 mg/dL 06/08/2024 3:59 AM [facility] Est Glomerular Filtration Rate - Male 74 mL/min/1. 73 m?? 06/08/2024 3:59 AM [facility] Comment: [...] AM EST Shahnaz Scanlon MD CHEMISTRY ORDERABLES [facility] [place] [address] * POC, GLUCOSE (06/07/2024 11:57 PM EST) Glucometer, POC 188 65 - 199 mg/dL 06/07/2024 11:57 PM EST [facility] Comment:Supplemental ranges: <140 mg/dL before meals <180 mg/dL all other times of the day. Blood CAPILLARY BLOOD / Unknown 06/07/2024 11:57 PM EST 06/07/2024 11:58 PM EST Melida Valdes MD POINT OF CARE TEST O NIKA Performing Organization Address [facility] Co de Phone Number [facility] [place] [address] * POC, GLUCOSE (06/07/2024 8:05 PM EST) Glucometer, POC 118 65 - 199 mg/dL 06/07/2024 8:06 PM EST [facility] Comment:Supplemental ranges: <140 mg/dL before meals <180 mg/dL all other times of the day. Blood CAPILLARY BLOOD / Unknown 06/07/2024 8:05 PM EST 06/07/2024 8:06 PM EST Melida Valdes MD POINT OF CARE TEST Abimael MAHER Performing Organization Address [facility] Co de Phone Number [facility] [place] [address] * Potassium (06/07/2024 5:22 PM EST) Potassium 4.6 3.5 - 5.0 mMol/L 06/07/2024 5:59 PM EST [facility] Blood VENOUS BLOOD SPECIMEN / Unknown Venipuncture / Unknown 06/07/2024 5:22 PM EST 06/07/2024 5:26 PM EST Shahnaz Scanlon MD CHEMISTRY ORDERABLES Performing Organization Address City/[facility] Co de Phone Number [facility] [place] [address] * POC, GLUCOSE (06/07/2024 4:31 PM EST) Glucometer, POC 174 65 - 199 mg/dL 06/07/2024 4:34 PM EST [facility] Comment:Supplemental ranges: <140 mg/dL before meals <180 mg/dL all other times of the day. Blood CAPILLARY BLOOD / Unknown 06/07/2024 4:31 PM EST 06/07/2024 4:34 PM EST Melida Valdes MD POINT OF CARE TEST O RDERABLES [facility] [place] [address] * MRI Cardiac Morphology Function wwo Contrast (06/07/2024 1:10 PM EST) WORKSTATION ID [id number] DH RAD Anatomical Region Laterality Modality Magnetic [...] - Mildly dilated left ventricle size with nyabjryw-oi-cpexufsz decreased LV systolic function. ??LV ejection fraction [...] who have questions please contact the health palliative care specialist that requested your imaging first. ? Electronically signed by: Kriss Alonzo MD, [facility] ([phone]), at 06/07/2024 2:41 PM Narrative 06/07/2024 2:41 [...] VENTRICLE: Mildly dilated left ventricle size with vmhjmxyt-du-dakepwve decreased LV systolic function. ??LV ejection fraction [...] VENTRICLE: Mildly dilated left ventricle size with snpmnisc-ak-inbzekne decreasedLV systolic function. LV ejection fraction is [...] - Mildly dilated left ventricle size with bgydhgcn-lj-flnzsxkt decreasedLV systolic function. LV ejection fraction is [...] patients who have questions please contactthe health palliative care specialist that requested your imaging first. Electronically signed by: Kriss Alonzo MD, [facility]([phone]), at 06/07/2024 2:41 PM Delroy Fofana MD IMG MRI ORDERABLES * (ABNORMAL) POC, GLUCOSE (06/07/2024 11:05 AM EST) [facility] Glucometer, POC 221(H) 65 - 199 mg/dL 06/07/2024 11:06 AM EST [facility] Comment:Supplemental ranges: <140 mg/dL before meals <180 mg/dL all other times of the day. Blood CAPILLARY BLOOD / Unknown 06/07/2024 11:05 AM EST 06/07/2024 11:06 AM EST Melida Valdes MD POINT OF CARE TEST O NIKA Performing Organization Address City/[facility]/ZIP Co de Phone Number [facility] [place] [address] * (ABNORMAL) POC, GLUCOSE (06/07/2024 11:03 AM EST) Glucometer, POC 250(H) 65 - 199 mg/dL 06/07/2024 11:04 AM EST [facility] Comment:Supplemental ranges: <140 mg/dL before meals <180 mg/dL all other times of the day. Blood CAPILLARY BLOOD / Unknown 06/07/2024 11:03 AM EST 06/07/2024 11:04 AM EST Melida Valdes MD POINT OF CARE TEST O NIKA Performing Organization Address City/[facility]/ZIP Co de Phone Number [facility] [place] [address] * Potassium (06/07/2024 9:44 AM EST) Potassium 4.7 3.5 - 5.0 mMol/L 06/07/2024 10:23 AM EST [facility] Blood VENOUS BLOOD SPECIMEN / Unknown Venipuncture / Unknown 06/07/2024 9:44 AM EST 06/07/2024 9:57 AM EST Shahnaz Scanlon MD CHEMISTRY ORDERABLES Performing Organization Address City/[facility]/ZIP Co de Phone Number [facility] [place] [address] * POC, GLUCOSE (06/07/2024 7:45 AM EST) Glucometer, POC 175 65 - 199 mg/dL 06/07/2024 7:45 AM EST [facility] Comment:Supplemental ranges: <140 mg/dL before meals <180 mg/dL all other times of the day. Blood CAPILLARY BLOOD / Unknown 06/07/2024 7:45 AM EST 06/07/2024 7:46 AM EST Melida Valdes MD POINT OF CARE TEST O RDERABLES [facility] [place] [address] * XR Chest PA & Lateral (Generic) (06/07/2024 7:03 AM EST) WORKSTATION ID [id number] RAD Anatomical Region Laterality Modality Chest N/A [...] who have questions please contact the health palliative care specialist that requested your imaging first. ? Electronically signed by: Stuart Aponte MD, [facility] ??([phone]), at 06/07/2024 10:45 AM Narrative 06/07/2024 10:45 [...] patients who have questions please contactthe health palliative care specialist that requested your imaging first. Electronically signed by: Stuart Aponte MD, [facility]([phone]), at 06/07/2024 10:45 AM Shahnaz Scanlon MD IMG DX ORDERABLES * POC, GLUCOSE (06/07/2024 4:25 AM EST) [facility] Glucometer, POC 127 65 - 199 mg/dL 06/07/2024 4:26 AM EST [facility] Comment:Supplemental ranges: <140 mg/dL before meals <180 mg/dL all other times of the day. Blood CAPILLARY BLOOD / Unknown 06/07/2024 4:25 AM EST 06/07/2024 4:26 AM EST Melida Valdes MD POINT OF CARE TEST O RDERABLES [facility] [place] [address] * Heparin (unfractionated) Level (06/07/2024 2:41 AM EST) Pathologist [facility] UF Heparin 0.45 IU/mL 06/07/2024 3:03 AM EST [facility] AM EST 06/07/2024 2:53 AM EST Shahnaz Sacnlon MD HEMATOLOGY ORDERABLE S Performing Organization Address City/State/[facility] Co de Phone Number [facility] [place] [address] * (ABNORMAL) CBC (with Diff) (06/07/2024 2:41 AM EST) [facility] White Blood Cell 10.06(H) 4.00 - 9.50 x10(3)/mc L 06/07/2024 2:58 AM EST [facility] Red Blood Cell 5.02 4.58 - 5.54 x10(6)/mc L 06/07/2024 2:58 AM EST [facility] Hemoglobin 14.8 13.7 - 16.5 g/dL 06/07/2024 2:58 AM EST [facility] Hematocrit 46.2 40.5 - 48.5 % 06/07/2024 2:58 AM EST [facility] Mean Cell Volume 92.0 82.9 - 93.1 fL 06/07/2024 2:58 AM [facility] Mean Cell Hemoglobin 29.5 27.5 - 32.1 pg 06/07/2024 2:58 AM [facility] Mean Cell Hemoglobin Concentration 32.0 32.0 - 35.7 g/dL 06/07/2024 2:58 AM [facility] Platelet 202 145 - 357 x10(3)/mc L 06/07/2024 2:58 AM [facility] Mean Platelet Volume 9.6 7.6 - 12.9 fL 06/07/2024 2:58 AM [facility] RDW Standard Deviation 46.3(H) 36.0 - 45.0 fL 06/07/2024 2:58 AM [facility] RDW coefficient of variation 13.8 11.4 - 13.8 % 06/07/2024 2:58 AM [facility] NRBC% auto 0.0 % 06/07/2024 2:58 AM [facility] NRBC Absolute <0.01 <0.01 x10(3)/mc L 06/07/2024 2:58 AM [facility] Neutrophil % 55.9 % 06/07/2024 2:58 AM [facility] Neutrophil Absolute (ANC) - Automated 5.62 1.70 - 6.10 x10(3)/mc L 06/07/2024 2:58 AM [facility] Lymph % 28.3 % 06/07/2024 2:58 AM [facility] Lymph Absolute 2.85 0.90 - 3.20 x10(3)/mc L 06/07/2024 2:58 AM [facility] Monocyte % 10.8 % 06/07/2024 2:58 AM [facility] Monocyte Absolute 1.09(H) 0.30 - 0.90 x10(3)/mc L 06/07/2024 2:58 AM [facility] Eos % 3.6 % 06/07/2024 2:58 AM EST [facility] Eos Absolute 0.36 0.00 - 0.40 x10(3)/mc L 06/07/2024 2:58 AM EST [facility] Basophil % 0.8 % 06/07/2024 2:58 AM [facility] Baso Absolute 0.08 0.00 - 0.10 x10(3)/mc L 06/07/2024 2:58 AM EST [facility] Immature Gran % 0.6 % 2:58 AM [facility] Immature Gran Absolute 0.06(H) 0.00 - 0.04 x10(3)/mc L 06/07/2024 2:58 AM [facility] Blood VENOUS BLOOD SPECIMEN / Unknown Venipuncture / Unknown 06/07/2024 2:41 AM EST 06/07/2024 2:52 AM EST Shahnaz Scanlon MD HEMATOLOGY ORDERABLE S [facility] [place] [address] * Magnesium (06/07/2024 2:41 AM EST) Magnesium 0.92 0.69 - 1.07 mMol/L 06/07/2024 3:25 AM EST [facility] Blood VENOUS BLOOD SPECIMEN / Unknown Venipuncture / Unknown 06/07/2024 2:41 AM EST 06/07/2024 2:51 AM EST Shahnaz Scanlon MD CHEMISTRY ORDERABLES [facility] [place] [address] * (ABNORMAL) Basic Metabolic Panel (06/07/2024 2:41 AM EST) Glucose 140 65 - 199 mg/dL 06/07/2024 3:25 AM [facility] Comment:Glucose Concentratio n >=200 mg/dL plus symptoms is consistent with Diabetes Mellitus. Blood Urea Nitrogen 26(H) 10 - 20 mg/dL 06/07/2024 3:25 AM [facility] Creatinine 1.06 0.80 - 1.50 mg/dL 06/07/2024 3:25 AM [facility] Sodium 136 135 - 145 mMol/L 06/07/2024 3:25 AM [facility] Potassium 3.8 3.5 - 5.0 mMol/L 06/07/2024 3:25 AM [facility] Chloride 98 98 - 107 mMol/L 06/07/2024 3:25 AM [facility] Carbon Dioxide 28 22 - 31 mMol/L 06/07/2024 3:25 AM [facility] Anion Gap 10 5 - 15 mMol/L 06/07/2024 3:25 AM [facility] Calcium 9.4 8.5 - 10.5 mg/dL 06/07/2024 3:25 AM [facility] Est Glomerular Filtration Rate - Male 77 mL/min/1. 73 m?? 06/07/2024 3:25 AM [facility] Comment: [...] Scanlon MD CHEMISTRY ORDERABLES Performing Organization Address [facility] Co de Phone Number [facility] [place] [address] * POC, GLUCOSE (06/07/2024 12:08 AM EST) Glucometer, POC 182 65 - 199 mg/dL 06/07/2024 12:09 AM EST [facility] Comment:Supplemental ranges: <140 mg/dL before meals <180 mg/dL all other times of the day. Blood CAPILLARY BLOOD / Unknown 06/07/2024 12:08 AM EST 06/07/2024 12:09 AM EST Melida Valdes MD POINT OF CARE TEST O NIKA Performing Organization Address [facility] de Phone Number [facility] [place] [place] [address] * POC, GLUCOSE (06/06/2024 8:18 PM EST) Glucometer, POC 143 65 - 199 mg/dL 06/06/2024 8:19 PM EST [facility] Comment:Supplemental ranges: <140 mg/dL before meals <180 mg/dL all other times of the day. Blood CAPILLARY BLOOD / Unknown 06/06/2024 8:18 PM EST 06/06/2024 8:19 PM EST Melida Valdes MD POINT OF CARE TEST O NIKA Performing Organization Address [facility] Co de Phone Number [facility] [place] [address] * POC, GLUCOSE (06/06/2024 3:39 PM EST) Glucometer, POC 147 65 - 199 mg/dL 06/06/2024 3:40 PM EST [facility] Comment:Supplemental ranges: <140 mg/dL before meals <180 mg/dL all other times of the day. Blood CAPILLARY BLOOD / Unknown 06/06/2024 3:39 PM EST 06/06/2024 3:40 PM EST Melida Valdes MD POINT OF CARE TEST O NIKA Performing Organization Address City/[facility]/ZIP Co de Phone Number [facility] [place] [address] * Potassium (06/06/2024 2:37 PM EST) Potassium 4.3 3.5 - 5.0 mMol/L 06/06/2024 3:01 PM EST [facility] Blood VENOUS BLOOD SPECIMEN / Unknown Venipuncture / Unknown 06/06/2024 2:37 PM EST 06/06/2024 2:42 PM EST Shahnaz Scanlon MD CHEMISTRY ORDERABLES Performing Organization Address [facility] Co de Phone Number [facility] [place] [address] * (ABNORMAL) POC, GLUCOSE (06/06/2024 1:39 PM EST) Glucometer, POC 317(H) 65 - 199 mg/dL 06/06/2024 1:40 PM EST [facility] Comment:Supplemental ranges: <140 mg/dL before meals <180 mg/dL all other times of the day. Blood CAPILLARY BLOOD / Unknown 06/06/2024 1:39 PM EST 06/06/2024 1:41 PM EST Melida Valdes MD POINT OF CARE TEST O NIKA Performing Organization Address City/[facility]/ZIP Co de Phone Number [facility] [place] [place] [address] * (ABNORMAL) POC, GLUCOSE (06/06/2024 11:34 AM EST) Glucometer, POC 264(H) 65 - 199 mg/dL 06/06/2024 11:35 AM EST [facility] Comment:Supplemental ranges: <140 mg/dL before meals <180 mg/dL all other times of the day. Blood CAPILLARY BLOOD / Unknown 06/06/2024 11:34 AM EST 06/06/2024 11:35 AM EST Melida Valdes MD POINT OF CARE TEST O RDBECKIE Performing Organization Address City/[facility]/ZIP Co de Phone Number [facility] [place] [address] * Potassium (06/06/2024 10:17 AM EST) Potassium 4.3 3.5 - 5.0 mMol/L 06/06/2024 10:46 AM EST [facility] Blood VENOUS BLOOD SPECIMEN / Unknown Venipuncture / Unknown 06/06/2024 10:17 AM EST 06/06/2024 10:22 AM EST Shahnaz Scanlon MD CHEMISTRY ORDERABLES Performing Organization Address City/[facility]/ZIP Co de Phone Number [facility] [place] [address] * POC, GLUCOSE (06/06/2024 7:57 AM EST) Glucometer, POC 195 65 - 199 mg/dL 06/06/2024 8:03 AM EST [facility] Comment:Supplemental ranges: <140 mg/dL before meals <180 mg/dL all other times of the day. Blood CAPILLARY BLOOD / Unknown 06/06/2024 7:57 AM EST 06/06/2024 8:03 AM EST Melida Valdes MD POINT OF CARE TEST O NIKA Performing Organization Address City/[facility]/ZIP Co de Phone Number [facility] [place] [place] [address] * POC, GLUCOSE (06/06/2024 6:53 AM EST) Glucometer, POC 187 65 - 199 mg/dL 06/06/2024 6:53 AM EST [facility] Comment:Supplemental ranges: <140 mg/dL before meals <180 mg/dL all other times of the day. Blood CAPILLARY BLOOD / Unknown 06/06/2024 6:53 AM EST 06/06/2024 6:54 AM EST Melida Valdes MD POINT OF CARE TEST O RDERABLES [facility] [place] [address] * (ABNORMAL) Hemoglobin A1c (06/06/2024 3:33 AM EST) Pathologist [facility] Hemoglobin A1c 7.1(H) 4.3 - 5.6 % 06/06/2024 1:01 PM EST [facility] [...] Glucose 157 mg/dL 06/06/2024 1:01 PM EST [facility] Blood VENOUS BLOOD SPECIMEN / Unknown Venipuncture / Unknown 06/06/2024 3:33 AM EST 06/06/2024 3:48 AM EST Alejandra Baumann APRN CHEMISTRY ORDERAB LES [facility] [place] [address] * Heparin (unfractionated) Level (06/06/2024 3:33 AM EST) Pathologist [facility] UF Heparin 0.36 IU/mL 06/06/2024 3:59 AM EST [facility] [...] City/State/[facility] Co de Phone Number [facility] [place] [address] * (ABNORMAL) CBC (with Diff) (06/06/2024 3:33 AM EST) White Blood Cell 9.81(H) 4.00 - 9.50 x10(3)/mc L 06/06/2024 3:54 AM EST [facility] Red Blood Cell 4.91 4.58 - 5.54 x10(6)/mc L 06/06/2024 3:54 AM EST [facility] Hemoglobin 14.6 13.7 - 16.5 g/dL 06/06/2024 3:54 AM EST [facility] Hematocrit 45.4 40.5 - 48.5 % 06/06/2024 3:54 AM [facility] Mean Cell Volume 92.5 82.9 - 93.1 fL 06/06/2024 3:54 AM EST [facility] Mean Cell Hemoglobin 29.7 27.5 - 32.1 pg 06/06/2024 3:54 AM [facility] Mean Cell Hemoglobin Concentration 32.2 32.0 - 35.7 g/dL 06/06/2024 3:54 AM [facility] Platelet 199 145 - 357 x10(3)/mc L 06/06/2024 3:54 AM [facility] Mean Platelet Volume 9.5 7.6 - 12.9 fL 06/06/2024 3:54 AM [facility] RDW Standard Deviation 47.2(H) 36.0 - 45.0 fL 06/06/2024 3:54 AM [facility] RDW coefficient of variation 13.9(H) 11.4 - 13.8 % 06/06/2024 3:54 AM [facility] NRBC% auto 0.0 % 06/06/2024 3:54 AM [facility] NRBC Absolute <0.01 <0.01 x10(3)/mc L 06/06/2024 3:54 AM [facility] Neutrophil % 56.8 % 06/06/2024 3:54 AM [facility] Neutrophil Absolute (ANC) - Automated 5.57 1.70 - 6.10 x10(3)/mc L 06/06/2024 3:54 AM [facility] Lymph % 27.6 % 06/06/2024 3:54 AM [facility] Lymph Absolute 2.71 0.90 - 3.20 x10(3)/mc L 06/06/2024 3:54 AM [facility] Monocyte % 11.1 % 06/06/2024 3:54 AM [facility] Monocyte Absolute 1.09(H) 0.30 - 0.90 x10(3)/mc L 06/06/2024 3:54 AM [facility] Eos % 3.0 % 06/06/2024 3:54 AM [facility] Eos Absolute 0.29 0.00 - 0.40 x10(3)/mc L 06/06/2024 3:54 AM EST [facility] Basophil % 0.9 % 06/06/2024 3:54 AM EST [facility] Baso Absolute 0.09 0.00 - 0.10 x10(3)/mc L 06/06/2024 3:54 AM EST [facility] Immature Gran % 0.6 % 3:54 AM EST [facility] Immature Gran Absolute 0.06(H) 0.00 - 0.04 x10(3)/mc L 06/06/2024 3:54 AM EST [facility] Blood VENOUS BLOOD SPECIMEN / Unknown Venipuncture / Unknown 06/06/2024 3:33 AM EST 06/06/2024 3:48 AM EST Shahnaz Scanlon MD HEMATOLOGY ORDERABLE S Performing Organization Address City/[facility]/ZIP Co de Phone Number [facility] [place] [address] * Magnesium (06/06/2024 3:33 AM EST) Magnesium 0.92 0.69 - 1.07 mMol/L 06/06/2024 4:17 AM [facility] Blood VENOUS BLOOD SPECIMEN / Unknown Venipuncture / Unknown 06/06/2024 3:33 AM EST 06/06/2024 3:47 AM EST Shahnaz Scanlon MD CHEMISTRY ORDERABLES [facility] [place] [address] * (ABNORMAL) Basic Metabolic Panel (06/06/2024 3:33 AM EST) Glucose 190 65 - 199 mg/dL 06/06/2024 4:17 AM [facility] Comment:Glucose Concentratio n >=200 mg/dL plus symptoms is consistent with Diabetes Mellitus. Blood Urea Nitrogen 27(H) 10 - 20 mg/dL 06/06/2024 4:17 AM [facility] Creatinine 1.12 0.80 - 1.50 mg/dL 06/06/2024 4:17 AM [facility] Sodium 136 135 - 145 mMol/L 06/06/2024 4:17 AM [facility] Potassium 4.0 3.5 - 5.0 mMol/L 06/06/2024 4:17 AM [facility] Chloride 97(L) 98 - 107 mMol/L 06/06/2024 4:17 AM [facility] Carbon Dioxide 26 22 - 31 mMol/L 06/06/2024 4:17 AM [facility] Anion Gap 13 5 - 15 mMol/L 06/06/2024 4:17 AM [facility] Calcium 9.1 8.5 - 10.5 mg/dL 06/06/2024 4:17 AM [facility] Est Glomerular Filtration Rate - Male 72 mL/min/1. 73 m?? 06/06/2024 4:17 AM [facility] Comment: [...] AM EST Shahnaz Scanlon MD CHEMISTRY ORDERABLES [facility] [place] [address] * (ABNORMAL) POC, GLUCOSE (06/05/2024 10:31 PM EDT) Glucometer, POC 238(H) 65 - 199 mg/dL 06/05/2024 10:31 PM EDT [facility] Comment:Supplemental ranges: <140 mg/dL before meals <180 mg/dL all other times of the day. Blood CAPILLARY BLOOD / Unknown 06/05/2024 10:31 PM EDT 06/05/2024 10:31 PM EDT Melida Valdes MD POINT OF CARE TEST O NIKA Performing Organization Address [facility] Co de Phone Number [facility] [place] [address] * (ABNORMAL) POC, GLUCOSE (06/05/2024 4:22 PM EDT) Glucometer, POC 205(H) 65 - 199 mg/dL 06/05/2024 4:22 PM EDT [facility] Comment:Supplemental ranges: <140 mg/dL before meals <180 mg/dL all other times of the day. Blood CAPILLARY BLOOD / Unknown 06/05/2024 4:22 PM EDT 06/05/2024 4:23 PM EDT Melida Valdes MD POINT OF CARE TEST O RALPHERAPIETER Performing Organization Address City/[facility]/ZIP Co de Phone Number [facility] [place] [address] * (ABNORMAL) POC, GLUCOSE (06/05/2024 11:34 AM EDT) Glucometer, POC 211(H) 65 - 199 mg/dL 06/05/2024 11:34 AM EDT [facility] Comment:Supplemental ranges: <140 mg/dL before meals <180 mg/dL all other times of the day. Blood CAPILLARY BLOOD / Unknown 06/05/2024 11:34 AM EDT 06/05/2024 11:34 AM EDT Melida Valdes MD POINT OF CARE TEST O RDERABLES Performing Organization Address City/[facility]/ZIP Co de Phone Number [facility] [place] [address] * Potassium (06/05/2024 9:04 AM EDT) [facility] Potassium 4.3 3.5 - 5.0 mMol/L 06/05/2024 9:50 AM EDT [facility] Blood VENOUS BLOOD SPECIMEN / Unknown Venipuncture / Unknown 06/05/2024 9:04 AM EDT 06/05/2024 9:21 AM EDT Shahnaz Scanlon MD CHEMISTRY ORDERABLES Performing Organization Address [facility] Co de Phone Number [facility] [place] [address] * POC, GLUCOSE (06/05/2024 7:27 AM EDT) [facility] Glucometer, POC 166 65 - 199 mg/dL 06/05/2024 7:27 AM EDT [facility] Comment:Supplemental ranges: <140 mg/dL before meals <180 mg/dL all other times of the day. Blood CAPILLARY BLOOD / Unknown 06/05/2024 7:27 AM EDT 06/05/2024 7:27 AM EDT Melida Valdes MD POINT OF CARE TEST O NIKA Performing Organization Address [facility] Co de Phone Number [facility] [place] [address] * Heparin (unfractionated) Level (06/05/2024 3:44 AM EDT) [facility] UF Heparin 0.44 IU/mL 06/05/2024 4:07 AM EDT [facility] [...] City/State/[facility] Co de Phone Number [facility] [place] [address] * (ABNORMAL) CBC (with Diff) (06/05/2024 3:44 AM EDT) White Blood Cell 10.83(H) 4.00 - 9.50 x10(3)/mc L 06/05/2024 3:56 AM EDT [facility] Red Blood Cell 5.07 4.58 - 5.54 x10(6)/mc L 06/05/2024 3:56 AM EDT [facility] Hemoglobin 15.3 13.7 - 16.5 g/dL 06/05/2024 3:56 AM EDT [facility] Hematocrit 46.8 40.5 - 48.5 % 06/05/2024 3:56 AM EDT [facility] Mean Cell Volume 92.3 82.9 - 93.1 fL 06/05/2024 3:56 AM EDT [facility] Mean Cell Hemoglobin 30.2 27.5 - 32.1 pg 06/05/2024 3:56 AM EDT [facility] Mean Cell Hemoglobin Concentration 32.7 32.0 - 35.7 g/dL 06/05/2024 3:56 AM [facility] Platelet 219 145 - 357 x10(3)/mc L 06/05/2024 3:56 AM [facility] Mean Platelet Volume 9.4 7.6 - 12.9 fL 06/05/2024 3:56 AM [facility] RDW Standard Deviation 46.7(H) 36.0 - 45.0 fL 06/05/2024 3:56 AM [facility] RDW coefficient of variation 13.9(H) 11.4 - 13.8 % 06/05/2024 3:56 AM [facility] NRBC% auto 0.0 % 06/05/2024 3:56 AM [facility] NRBC Absolute <0.01 <0.01 x10(3)/mc L 06/05/2024 3:56 AM [facility] Neutrophil % 61.5 % 06/05/2024 3:56 AM [facility] Neutrophil Absolute (ANC) - Automated 6.65(H) 1.70 - 6.10 x10(3)/mc L 06/05/2024 3:56 AM [facility] Lymph % 24.0 % 06/05/2024 3:56 AM [facility] Lymph Absolute 2.60 0.90 - 3.20 x10(3)/mc L 06/05/2024 3:56 AM [facility] Monocyte % 10.9 % 06/05/2024 3:56 AM [facility] Monocyte Absolute 1.18(H) 0.30 - 0.90 x10(3)/mc L 06/05/2024 3:56 AM [facility] Eos % 2.2 % 06/05/2024 3:56 AM [facility] Eos Absolute 0.24 0.00 - 0.40 x10(3)/mc L 06/05/2024 3:56 AM [facility] Basophil % 0.8 % 06/05/2024 3:56 AM EDT [facility] Baso Absolute 0.09 0.00 - 0.10 x10(3)/mc L 06/05/2024 3:56 AM EDT [facility] Immature Gran % 0.6 % 3:56 AM EDT [facility] Immature Gran Absolute 0.07(H) 0.00 - 0.04 x10(3)/mc L 06/05/2024 3:56 AM EDT [facility] Blood VENOUS BLOOD SPECIMEN / Unknown Venipuncture / Unknown 06/05/2024 3:44 AM EDT 06/05/2024 3:50 AM EDT Shahnaz Scanlon MD HEMATOLOGY ORDERABLE S Performing Organization Address City/[facility]/ZIP Co de Phone Number [facility] [place] [address] * Magnesium (06/05/2024 3:44 AM EDT) Magnesium 0.92 0.69 - 1.07 mMol/L 06/05/2024 4:20 AM EDT [facility] Blood VENOUS BLOOD SPECIMEN / Unknown Venipuncture / Unknown 06/05/2024 3:44 AM EDT 06/05/2024 3:50 AM EDT Shahnaz Scanlon MD CHEMISTRY ORDERABLES [facility] [place] [address] * (ABNORMAL) Basic Metabolic Panel (06/05/2024 3:44 AM EDT) Glucose 155 65 - 199 mg/dL 06/05/2024 4:20 AM EDT [facility] Comment:Glucose Concentratio n >=200 mg/dL plus symptoms is consistent with Diabetes Mellitus. Blood Urea Nitrogen 25(H) 10 - 20 mg/dL 06/05/2024 4:20 AM [facility] Creatinine 1.16 0.80 - 1.50 mg/dL 06/05/2024 4:20 AM [facility] Sodium 136 135 - 145 mMol/L 06/05/2024 4:20 AM [facility] Potassium 3.9 3.5 - 5.0 mMol/L 06/05/2024 4:20 AM [facility] Chloride 95(L) 98 - 107 mMol/L 06/05/2024 4:20 AM [facility] Carbon Dioxide 29 22 - 31 mMol/L 06/05/2024 4:20 AM [facility] Anion Gap 12 5 - 15 mMol/L 06/05/2024 4:20 AM [facility] Calcium 9.2 8.5 - 10.5 mg/dL 06/05/2024 4:20 AM [facility] Est Glomerular Filtration Rate - Male 69 mL/min/1. 73 m?? 06/05/2024 4:20 AM [facility] [...] AM EDT Shahnaz Scanlon MD CHEMISTRY ORDERABLES [facility] [place] [address] * Potassium (06/04/2024 10:34 PM EDT) Potassium 3.7 3.5 - 5.0 mMol/L 06/04/2024 11:03 PM EDT [facility] Blood VENOUS BLOOD SPECIMEN / Unknown Venipuncture / Unknown 06/04/2024 10:34 PM EDT 06/04/2024 10:39 PM EDT Shahnaz Scanlon MD CHEMISTRY ORDERABLES [facility] [place] [address] * POC, GLUCOSE (06/04/2024 7:43 PM EDT) Glucometer, POC 175 65 - 199 mg/dL 06/04/2024 7:43 PM EDT [facility] Comment:Supplemental ranges: <140 mg/dL before meals <180 mg/dL all other times of the day. Blood CAPILLARY BLOOD / Unknown 06/04/2024 7:43 PM EDT 06/04/2024 7:43 PM EDT Melida Valdes MD POINT OF CARE TEST O RDERABLES [facility] [place] [address] * Potassium (06/04/2024 4:35 PM EDT) Potassium 4.0 3.5 - 5.0 mMol/L 06/04/2024 5:32 PM EDT [facility] Blood VENOUS BLOOD SPECIMEN / Unknown Venipuncture / Unknown 06/04/2024 4:35 PM EDT 06/04/2024 4:40 PM EDT Shahnaz Scanlon MD CHEMISTRY ORDERABLES [facility] [place] [address] * POC, GLUCOSE (06/04/2024 3:26 PM EDT) Glucometer, POC 154 65 - 199 mg/dL 06/04/2024 3:26 PM EDT [facility] Comment:Supplemental ranges: <140 mg/dL before meals <180 mg/dL all other times of the day. Blood CAPILLARY BLOOD / Unknown 06/04/2024 3:26 PM EDT 06/04/2024 3:27 PM EDT Melida Valdes MD POINT OF CARE TEST O RDERABLES Performing Organization Address City/[facility]/ZIP Co de Phone Number [facility] [place] [address] * POC, GLUCOSE (06/04/2024 11:09 AM EDT) Glucometer, POC 188 65 - 199 mg/dL 06/04/2024 11:09 AM EDT [facility] Comment:Supplemental ranges: <140 mg/dL before meals <180 mg/dL all other times of the day. Blood CAPILLARY BLOOD / Unknown 06/04/2024 11:09 AM EDT 06/04/2024 11:09 AM EDT Delroy Fofana MD POINT OF CARE TEST ORDERABLES Performing Organization Address City/[facility]/ZIP Co de Phone Number [facility] [place] [address] * Heparin (unfractionated) Level (06/04/2024 10:41 AM EDT) UF Heparin 0.43 IU/mL 06/04/2024 11:06 AM EDT [facility] [place]/ZIP Co de Phone Number [facility] [place] [place] [address] * Potassium (06/04/2024 10:41 AM EDT) Potassium 4.0 3.5 - 5.0 mMol/L 06/04/2024 11:11 AM EDT [facility] Blood VENOUS BLOOD SPECIMEN / Unknown Venipuncture / Unknown 06/04/2024 10:41 AM EDT 06/04/2024 10:46 AM EDT Shahnaz Scanlon MD CHEMISTRY ORDERABLES Performing Organization Address [facility] Co de Phone Number [facility] [place] [address] * POC, GLUCOSE (06/04/2024 7:11 AM EDT) Glucometer, POC 182 65 - 199 mg/dL 06/04/2024 7:12 AM EDT [facility] Comment:Supplemental ranges: <140 mg/dL before meals <180 mg/dL all other times of the day. Blood CAPILLARY BLOOD / Unknown 06/04/2024 7:11 AM EDT 06/04/2024 7:12 AM EDT Delroy Fofana MD POINT OF CARE TEST ORDERABLES Performing Organization Address [facility] Co de Phone Number [facility] [place] [address] * Heparin (unfractionated) Level (06/04/2024 4:38 AM EDT) UF Heparin 0.41 IU/mL 06/04/2024 5:19 AM EDT [facility] [...] MD HEMATOLOGY ORDERABLE S Performing Organization Address [facility]/ZIP Co de Phone Number [facility] [place] [address] * (ABNORMAL) CBC (with Diff) (06/04/2024 4:38 AM EDT) White Blood Cell 11.45(H) 4.00 - 9.50 x10(3)/mc L 06/04/2024 5:12 AM EDT [facility] Red Blood Cell 5.35 4.58 - 5.54 x10(6)/mc L 06/04/2024 5:12 AM EDT [facility] Hemoglobin 16.0 13.7 - 16.5 g/dL 06/04/2024 5:12 AM [facility] Hematocrit 49.6(H) 40.5 - 48.5 % 06/04/2024 5:12 AM [facility] Mean Cell Volume 92.7 82.9 - 93.1 fL 06/04/2024 5:12 AM [facility] Mean Cell Hemoglobin 29.9 27.5 - 32.1 pg 06/04/2024 5:12 AM [facility] Mean Cell Hemoglobin Concentration 32.3 32.0 - 35.7 g/dL 06/04/2024 5:12 AM [facility] Platelet 222 145 - 357 x10(3)/mc L 06/04/2024 5:12 AM [facility] Mean Platelet Volume 9.5 7.6 - 12.9 fL 06/04/2024 5:12 AM [facility] RDW Standard Deviation 47.6(H) 36.0 - 45.0 fL 06/04/2024 5:12 AM [facility] RDW coefficient of variation 14.1(H) 11.4 - 13.8 % 06/04/2024 5:12 AM [facility] NRBC% auto 0.0 % 06/04/2024 5:12 AM [facility] NRBC Absolute <0.01 <0.01 x10(3)/mc L 06/04/2024 5:12 AM [facility] Neutrophil % 60.3 % 06/04/2024 5:12 AM [facility] Neutrophil Absolute (ANC) - Automated 6.91(H) 1.70 - 6.10 x10(3)/mc L 06/04/2024 5:12 AM [facility] Lymph % 25.1 % 06/04/2024 5:12 AM [facility] Lymph Absolute 2.87 0.90 - 3.20 x10(3)/mc L 06/04/2024 5:12 AM EDT [facility] Monocyte % 10.6 % 06/04/2024 5:12 AM EDT [facility] Monocyte Absolute 1.21(H) 0.30 - 0.90 x10(3)/mc L 06/04/2024 5:12 AM EDT [facility] Eos % 2.8 % 06/04/2024 5:12 AM EDT [facility] Eos Absolute 0.32 0.00 - 0.40 x10(3)/mc L 06/04/2024 5:12 AM EDT [facility] Basophil % 0.7 % 06/04/2024 5:12 AM EDT [facility] Baso Absolute 0.08 0.00 - 0.10 x10(3)/mc L 06/04/2024 5:12 AM EDT [facility] Immature Gran % 0.5 % 5:12 AM EDT [facility] Immature Gran Absolute 0.06(H) 0.00 - 0.04 x10(3)/mc L 06/04/2024 5:12 AM EDT [facility] Blood VENOUS BLOOD SPECIMEN / Unknown Venipuncture / Unknown 06/04/2024 4:38 AM EDT 06/04/2024 5:07 AM EDT Shahnaz Scanlon MD HEMATOLOGY ORDERABLE S [facility] [place] [address] * Magnesium (06/04/2024 4:38 AM EDT) Magnesium 0.84 0.69 - 1.07 mMol/L 06/04/2024 5:35 AM EDT [facility] Blood VENOUS BLOOD SPECIMEN / Unknown Venipuncture / Unknown 06/04/2024 4:38 AM EDT 06/04/2024 5:07 AM EDT Shahnaz Scanlon MD CHEMISTRY ORDERABLES [facility] [place] [address] * (ABNORMAL) Basic Metabolic Panel (06/04/2024 4:38 AM EDT) Glucose 118 65 - 199 mg/dL 06/04/2024 5:35 AM EDT [facility] Comment:Glucose Concentratio n >=200 mg/dL plus symptoms is consistent with Diabetes Mellitus. Blood Urea Nitrogen 22(H) 10 - 20 mg/dL 06/04/2024 5:35 AM EDT [facility] Creatinine 1.22 0.80 - 1.50 mg/dL 06/04/2024 5:35 AM EDT [facility] Sodium 137 135 - 145 mMol/L 06/04/2024 5:35 AM EDT [facility] Potassium 3.6 3.5 - 5.0 mMol/L 06/04/2024 5:35 AM EDT [facility] Chloride 97(L) 98 - 107 mMol/L 06/04/2024 [facility] Carbon Dioxide 29 22 - 31 mMol/L 06/04/2024 5:[facility] Anion Gap 11 5 - 15 mMol/L 06/04/2024 5:[facility] Calcium 9.0 8.5 - 10.5 mg/dL 06/04/2024 5:35 AM EDT [facility] Est Glomerular Filtration Rate - Male 65 mL/min/1. 73 m?? 06/04/2024 5:35 AM EDT [facility] [...] Scanlon MD CHEMISTRY ORDERABLES Performing Organization Address [facility] Co de Phone Number [facility] [place] [address] * Heparin (unfractionated) Level (06/03/2024 8:58 PM EDT) UF Heparin 0.27 IU/mL 06/03/2024 9:33 PM EDT [facility] [...] MD HEMATOLOGY ORDERABLE S Performing Organization Address [facility] Co de Phone Number [facility] [place] [address] * POC, GLUCOSE (06/03/2024 8:05 PM EDT) Glucometer, POC 136 65 - 199 mg/dL 06/03/2024 8:05 PM EDT [facility] Comment:Supplemental ranges: <140 mg/dL before meals <180 mg/dL all other times of the day. Blood CAPILLARY BLOOD / Unknown 06/03/2024 8:05 PM EDT 06/03/2024 8:05 PM EDT Delroy Fofana MD POINT OF CARE TEST ORDERABLES Performing Organization Address [facility] Co de Phone Number [facility] [place] [address] * POC, GLUCOSE (06/03/2024 5:48 PM EDT) Glucometer, POC 191 65 - 199 mg/dL 06/03/2024 5:48 PM EDT [facility] Comment:Supplemental ranges: <140 mg/dL before meals <180 mg/dL all other times of the day. Blood CAPILLARY BLOOD / Unknown 06/03/2024 5:48 PM EDT 06/03/2024 5:49 PM EDT Delroy Fofana MD POINT OF CARE TEST ORDERABLES Performing Organization Address City/[facility] Co de Phone Number [facility] [place] [address] * CT Chest wo Contrast (Generic) (06/03/2024 4:33 PM EDT) WORKSTATION ID [id number] DH RAD Anatomical Region Laterality Modality Chest Computed Tomogra phy Impressions 06/03/2024 4:47 PM EDT Cardiomegaly. Biventricular ICD leads in place. Thank you for letting us participate in the care of this patient. ??If you are a health care provider and have any questions regarding this report, please contact the number below. ??For patients who have questions please contact the health palliative care specialist that requested your imaging first. ? Electronically signed by: Stuart Aponte MD, [facility] ??([phone]), at 06/03/2024 4:47 PM Narrative 06/03/2024 4:47 [...] structures: There is qualitative osteopenia. Procedure Note Staurt Aponte MD - 06/03/2024 EXAMINATION: CT CHEST [...] patients who have questions please contactthe health palliative care specialist that requested your imaging first. Electronically signed by: Stuart Aponte MD, [facility]([phone]), at 06/03/2024 4:47 PM Bobby Loja MD IMG CT ORDERABLES * Carotid Duplex, Bilateral (06/03/2024 2:19 PM EDT) VB Text Report Department: Vascular Surgery Lab Patient: [id number] (GEORGE MEHTA) CPT: 39282 Referring Physician: BOBBY LOJA ?? Phone: Indications: [...] Heparin 0.15 IU/mL 06/03/2024 1:13 PM EDT [facility] [...] EDT Shahnaz Scanlon MD HEMATOLOGY ORDERABLE S [facility] [place] [place] [address] * POC, GLUCOSE (06/03/2024 11:14 AM EDT) Glucometer, POC 166 65 - 199 mg/dL 06/03/2024 11:14 AM EDT [facility] Comment:Supplemental ranges: <140 mg/dL before meals <180 mg/dL all other times of the day. Blood CAPILLARY BLOOD / Unknown 06/03/2024 11:14 AM EDT 06/03/2024 11:14 AM EDT Delroy Fofana MD POINT OF CARE TEST ORDERABLES [facility] [place] [address] * (ABNORMAL) Troponin-T, High Sensitivity 3 Hour [...] troponin value can be found in the [facility] Test Catalog Troponin - [email or web address]/catalogs/565/files/[email or web address] Reference: Fourth [place] Definition of Myocardial Infarction. Journal of the [place] [employer] 2018;72:2158-8389 Troponin-T, HS 3 hr delta 06/03/2024 10:50 AM EDT [facility] Comment:Delta troponin value not calculated, sample collected outside of delta calculation time limit. Blood VENOUS BLOOD SPECIMEN / Unknown IP Care Team Draw / Unknown 06/03/2024 10:06 AM EDT 06/03/2024 10:15 AM EDT Delroy Fofana MD CHEMISTRY ORDERABLE S [facility] [place] [address] * ECHO COMPLETE W CONTRAST (06/03/2024 8:46 AM EDT) Anatomical Region Laterality Modality Cardiac Other 06/03/2024 6:52 AM EDT Narrative 06/03/2024 10:32 AM EDT [address] [place] [id number] ? Echocardiogram Report Name: GEORGE MEHTA Raad ?Study Date: 06/03/2024 06:52 AM : 1955 ? Height: 168 cm ? Account: [id number] Age: 69 yrs ? Weight: 102 kg Gender: Male ?BSA: 2.1 m2 Ordering Physician: SHAHNAZ SCANLON Referring Physician: NEHAL QUINTERO Performed By: Sara Kebede RDCS Reason For Study: STEMI Exam Location: [facility]. Interpretation Summary -Left ventricular systolic function [...] fellow performed study of today's date). Procedure Complete-[id number]. Image enhancement Optison was used for left [...] Note Jonnie Jordan MD - 06/03/2024 [address] [place] [address] Echocardiogram Report Name: GEORGE MEHTA Study Date: 406:52 AM : 1955 Height: 168 cm Account: [id number] Age: 69 yrs Weight: 102 kg Gender: Male BSA: 2.1 m2 Ordering Physician: SHAHNAZ SCANLON Referring Physician: NEHAL QUINTERO Performed By: Sara Kebede RDCS Reason For Study: STEMI Exam Location: [facility]. Interpretation Summary -Left ventricular systolic function is severely reduced. Left ventricularejection fraction is estimated visually at 25-30%. There are segmental wallmotion abnormalities in a multivessel coronary distribution as coded below (andin the linked PDF). -The right ventricle is of normal size. Right ventricular systolicfunction is normal. -No significant valve disease. -No comparison study is available (other than a fellow performed study oftoday's date). Procedure Complete-[id number]. Image enhancement Optison was used for left [...] troponin value can be found in the [facility] Test Catalog Troponin - [email or web address]/catalogs/565/files/28455 Reference: Fourth [place] Definition of Myocardial Infarction. Journal of the [place] [employer] 2018;72:0826-6178 Troponin-T, HS 1 hr delta 5 ng/L [...] S [facility] [place] [address] * POC, GLUCOSE (06/03/2024 7:54 AM EDT) Glucometer, POC 195 65 - 199 mg/dL 06/03/2024 7:55 AM EDT [facility] Comment:Supplemental ranges: <140 mg/dL before meals <180 mg/dL all other times of the day. Blood CAPILLARY BLOOD / Unknown 06/03/2024 7:54 AM EDT 06/03/2024 7:55 AM EDT Nuha Rojo MD POINT OF CARE TEST ORDERABLES Performing Organization Address City/[facility]/ZIP Co de Phone Number [facility] [place] [address] * (ABNORMAL) Troponin-T, High Sensitivity (06/03/2024 7:39 [...] troponin value can be found in the [facility] Test Catalog Troponin - [email or web address]/catalogs/565/files/15401 Reference: Fourth [place] Definition of Myocardial Infarction. Journal of the [place] [employer]iology 2018;72:5554-4389 Blood VENOUS BLOOD SPECIMEN / Unknown IP Care Team Draw / Unknown 06/03/2024 7:39 AM EDT 06/03/2024 7:48 AM EDT Delroy Fofana MD CHEMISTRY ORDERABLE S Performing Organization Address City/[facility]/ZIP Co de Phone Number [facility] [place] [address] * (ABNORMAL) Troponin-T, High Sensitivity 3 Hour (06/03/2024 5:11 AM EDT) Troponin-T, High Sensitivity 254(H) <=22 ng/L 06/03/2024 5:49 AM EDT [facility] [...] troponin value can be found in the [facility] Test Catalog Troponin - [email or web address]/catalogs/565/files/03344 Reference: Fourth [place] Definition of Myocardial Infarction. Journal of the [place] [employer]iology 2018;72:9380-8080 Troponin-T, HS 3 hr delta 46 ng/L 06/03/2024 5:49 AM EDT [facility] Comment:The 3 hour [...] AM EDT Shahnaz Scanlon MD CHEMISTRY ORDERABLES [facility] [place] [address] * (ABNORMAL) Troponin-T, High Sensitivity 1 Hour (06/03/2024 3:07 AM EDT) Troponin-T, High Sensitivity 218(H) <=22 ng/L 06/03/2024 3:39 AM EDT [facility] [...] troponin value can be found in the [facility] Test Catalog Troponin - https://[email or web address]/catalogs/565/files/87095 Reference: Fourth [place] Definition of Myocardial Infarction. Journal of the [place] [employer]iology 2018;72:3879-8563 Troponin-T, HS 1 hr delta 10 ng/L 06/03/2024 3:39 AM EDT [facility] AM EDT Shahnaz Scanlon MD CHEMISTRY ORDERABLES [facility] [place] [address] * XR Chest One View (06/03/2024 2:41 AM EDT) WORKSTATION ID [id number] RAD Anatomical Region Laterality Modality Chest N/A Digital Radiogra phy Impressions 06/03/2024 3:06 AM EDT No radiographically evident acute cardiopulmonary process. Thank you for letting us participate in the care of this patient. ??If you are a health care provider and have any questions regarding this report, please contact the number below. ??For patients who have questions please contact the health palliative care specialist that requested your imaging first. ? Electronically signed by: Corazon Mauro MD, [facility] ([phone]), at 06/03/2024 3:06 AM Narrative 06/03/2024 3:06 [...] technique. No displaced rib fracture. Procedure Note Coraozn Mauro MD - 06/03/2024 EXAMINATION: XR CHEST [...] patients who have questions please contactthe health palliative care specialist that requested your imaging first. Electronically signed by: Corazon Mauro MD, [facility]([phone]), at 06/03/2024 3:06 AM Shahnaz Scanlon MD IMG DX ORDERABLES * Heparin (unfractionated) Level (06/03/2024 2:13 AM EDT) Pathologist [facility] UF Heparin 0.56 IU/mL 06/03/2024 4:13 AM EDT [facility] EDT Shahnaz Scanlon MD HEMATOLOGY ORDERABLE S [facility] [place] [address] * (ABNORMAL) Troponin-T, High Sensitivity (06/03/2024 2:13 AM EDT) Pathologist [facility] Troponin-T, High Sensitivity Initial 208(H) <=22 ng/L 06/03/2024 3:02 AM EDT [facility] troponin value can be found in the [facility] Test Catalog Troponin - https://[email or web address]/catalogs/565/files/58433 Reference: Fourth [place] Definition of Myocardial Infarction. Journal of the [place] [employer] Cardiology 2018;72:9464-6826 Blood VENOUS BLOOD SPECIMEN / Unknown IP Care Team Draw / Unknown 06/03/2024 2:13 AM EDT 06/03/2024 2:32 AM EDT Shahnaz Scanlon MD CHEMISTRY ORDERABLES [facility] [facility] [place] [address] * Magnesium (06/03/2024 2:13 AM EDT) Pathologist [facility] Magnesium 0.86 0.69 - 1.07 mMol/L 06/03/2024 3:02 AM EDT [facility] Blood VENOUS BLOOD SPECIMEN / Unknown IP Care Team Draw / Unknown 06/03/2024 2:13 AM EDT 06/03/2024 2:32 AM EDT Shahnaz Scanlon MD CHEMISTRY ORDERABLES [facility] [place] [address] * Basic Metabolic Panel (06/03/2024 2:13 AM EDT) Glucose 126 65 - 199 mg/dL 06/03/2024 3:02 AM EDT [facility] Comment:Glucose Concentratio n >=200 mg/dL plus symptoms is consistent with Diabetes Mellitus. Blood Urea Nitrogen 20 10 - 20 mg/dL 06/03/2024 3:02 AM [facility] Creatinine 1.13 0.80 - 1.50 mg/dL 06/03/2024 3:02 AM [facility] Sodium 139 135 - 145 mMol/L 06/03/2024 3:02 AM [facility] Potassium 4.2 3.5 - 5.0 mMol/L 06/03/2024 3:02 AM [facility] Chloride 101 98 - 107 mMol/L 06/03/2024 3:02 AM [facility] Carbon Dioxide 26 22 - 31 mMol/L 06/03/2024 3:02 AM [facility] Anion Gap 12 5 - 15 mMol/L 06/03/2024 3:02 AM [facility] Calcium 9.8 8.5 - 10.5 mg/dL 06/03/2024 3:02 AM [facility] Est Glomerular Filtration Rate - Male 71 mL/min/1. 73 m?? 06/03/2024 3:02 AM [facility] [...] AM EDT Shahnaz Scanlon MD CHEMISTRY ORDERABLES [facility] [place] [address] * (ABNORMAL) CBC (with Diff) (06/03/2024 2:13 AM EDT) White Blood Cell 11.16(H) 4.00 - 9.50 x10(3)/mc L 06/03/2024 2:37 [facility] Red Blood Cell 5.09 4.58 - 5.54 x10(6)/mc L 06/03/2024 2:37 AM [facility] Hemoglobin 15.0 13.7 - 16.5 g/dL 06/03/2024 2:37 AM [facility] Hematocrit 47.4 40.5 - 48.5 % 06/03/2024 2:37 AM EDT [facility] Mean Cell Volume 93.1 82.9 - 93.1 fL 06/03/2024 2:37 AM [facility] Mean Cell Hemoglobin 29.5 27.5 - 32.1 pg 06/03/2024 2:37 AM [facility] Mean Cell Hemoglobin Concentration 31.6(L) 32.0 - 35.7 g/dL 06/03/2024 2:37 AM [facility] Platelet 217 145 - 357 x10(3)/mc L 06/03/2024 2:37 AM EDT [facility] Mean Platelet Volume 9.5 7.6 - 12.9 fL 06/03/2024 2:37 AM [facility] RDW Standard Deviation 49.0(H) 36.0 - 45.0 fL 06/03/2024 2:37 AM [facility] RDW coefficient of variation 14.1(H) 11.4 - 13.8 % 06/03/2024 2:37 AM [facility] NRBC% auto 0.0 % 06/03/2024 2:37 AM [facility] NRBC Absolute <0.01 <0.01 x10(3)/mc L 06/03/2024 2:37 AM [facility] Neutrophil % 58.4 % 06/03/2024 2:37 AM [facility] Neutrophil Absolute (ANC) - Automated 6.51(H) 1.70 - 6.10 x10(3)/mc L 06/03/2024 2:37 AM [facility] Lymph % 29.9 % 06/03/2024 2:37 AM [facility] Lymph Absolute 3.34(H) 0.90 - 3.20 x10(3)/mc L 06/03/2024 2:37 AM [facility] Monocyte % 8.1 % 06/03/2024 2:37 AM [facility] Monocyte Absolute 0.90 0.30 - 0.90 x10(3)/mc L 06/03/2024 2:37 AM [facility] Eos % 2.4 % 06/03/2024 2:37 AM [facility] Eos Absolute 0.27 0.00 - 0.40 x10(3)/mc L 06/03/2024 2:37 AM [facility] Basophil % 0.8 % 06/03/2024 2:37 AM [facility] Baso Absolute 0.09 0.00 - 0.10 x10(3)/mc L 06/03/2024 2:37 AM EDT [facility] Immature Gran % 0.4 % 2:37 AM EDT [facility] Immature Gran Absolute 0.05(H) 0.00 - 0.04 x10(3)/mc L 06/03/2024 2:37 AM EDT [facility] Blood VENOUS BLOOD SPECIMEN / Unknown IP Care Team Draw / Unknown 06/03/2024 2:13 AM EDT 06/03/2024 2:31 AM EDT Shahnaz Scanlon MD HEMATOLOGY ORDERABLE S [facility] [place] [address] * Lipid Panel (Reflex Direct LDL) (06/03/2024 2:13 AM EDT) Cholesterol, Total 76 mg/dL 06/03/2024 3:02 AM [facility] Comment: Desirable: < 200 mg/dL Borderline High: 200 - 239 mg/dL High: > or = 240 mg/dL Triglyceride 75 mg/dL 06/03/2024 3:02 AM [facility] Comment: Normal: <150 mg/dL Borderline High: 150-199 mg/dL High: 200-499 mg/dL Very High: > or =500 mg/dL HDL Cholesterol 39 mg/dL 3:02 AM [facility] Comment:Males: High Risk: <4 0 mg/dL LDL Cholesterol 21 mg/dL 3:02 AM [facility] Comment: Desirable: <100 mg/dL Above Desirable: 100-129 mg/dL Borderline High: 130-159 mg/dL High: 160-189 mg/dL Very High: > or =190 mg/dL Note: LDL calculation updated to the NIH LDL formula as of 03/07/2024 Non-HDL Cholesterol 37 mg/dL 06/03/2024 3:02 AM [facility] Comment: Desirable: <130 mg/dL Above [...] ACC/AHA Guidelines (most recently Bruce et al. [facility] 05/07/22): * For individuals with atherosclerotic cardiovascular [...] Scanlon MD CHEMISTRY ORDERABLES Performing Organization Address [facility] Phone Number [facility] [place] [address] * (ABNORMAL) APTT (06/03/2024 2:13 AM EDT) Partial Thromboplastin Time 105(HHH) 25 - 37 sec 06/03/2024 4:13 AM EDT [facility] MD HEMATOLOGY ORDERABLE S Performing Organization Address [facility] Phone Number [facility] [place] [address] * Prothrombin Time (06/03/2024 2:13 AM EDT) Prothrombin Time 11.5 9.4 - 12.5 sec 06/03/2024 4:13 AM EDT [facility] International Normalization Ratio 1.0 <=4.9 06/03/2024 4:13 AM EDT [facility] [place]/ZIP Co de Phone Number [facility] [place] [address] * Hepatic Function Panel (06/03/2024 2:13 AM [...] - 8.0 g/dL 06/03/2024 3:02 AM EDT [facility] Blood VENOUS BLOOD SPECIMEN / Unknown IP Care Team Draw / Unknown 06/03/2024 2:13 AM EDT 06/03/2024 2:32 AM EDT Shahnaz Scanlon MD CHEMISTRY ORDERABLES Performing Organization Address City/[facility]/ZIP Co de Phone Number [facility] [place] [address] * (ABNORMAL) pro-Brain Natriuretic Peptide (06/03/2024 2:13 AM EDT) NT-proBNP 1,628(H) <=124 pg/mL 06/03/2024 4:15 AM EDT [facility] Blood VENOUS BLOOD SPECIMEN / Unknown IP Care Team Draw / Unknown 06/03/2024 2:13 AM EDT 06/03/2024 2:32 AM EDT Shahnaz Scanlon MD CHEMISTRY ORDERABLES [facility] [place] [address] * Phosphorus (06/03/2024 2:13 AM EDT) Pathologist [facility] Phosphorus 4.4 2.5 - 4.5 mg/dL 06/03/2024 3:02 AM EDT [facility] Blood VENOUS BLOOD SPECIMEN / Unknown IP Care Team Draw / Unknown 06/03/2024 2:13 AM EDT 06/03/2024 2:32 AM EDT Shahnaz Scanlon MD CHEMISTRY ORDERABLES [facility] [place] [address] * EKG 12 Lead (06/03/2024 1:45 AM EDT) Ventricular rate 63 BPM MUSE SYSTEM Atrial Rate 63 BPM MUSE SYSTEM P-R Interval 168 ms MUSE SYSTEM QRS Duration 96 ms MUSE SYSTEM Q-T Interval 400 ms MUSE SYSTEM QTC Calculated (Bezet) 409 ms MUSE SYSTEM Calculated P Gardner 65 degrees MUSE SYSTEM Calculated R Gardner 70 degrees MUSE SYSTEM Calculated T Gardner -86 degrees MUSE SYSTEM INTERPRETATION Atrial-sensed ventricular-paced rhythm Abnormal ECG No previous ECGs available I personally reviewed the tracing and edited the fellows interpretation Confirmed by fellow Sunni Agudelo ([id number]) on 06/04/2024 3:55:40 PM Confirmed by MD Tamia, Stuart Perry ([id number]) on 06/05/2024 11:46:48 AM MUSE SYSTEM 06/03/2024 1:45 AM EDT 06/05/2024 11:46 AM EDT Shahnaz Scanlon MD ECG ORDERABLES MUSE SYSTEM * CARDIAC CATHETERIZATION (06/03/2024 12:42 AM EDT) Anatomical Region Laterality Modality Other Narrative 06/04/2024 2:22 PM EDT ?[facility] ? Cardiac Catheterization/Intervention Report ? Patient Name: Tyson, George L. ? Procedure Date: 06/02/2024 ? A #: [id number] ? Primary Physician: Nuha Shen I ? Case #: [id number] ? File Name: [id number] ? Catheterization Order Number: [id number] ? [facility] ? Final Report [place], [place] ? Patient Name: ? George L. Tyson ? ID#: ?[id number] ? : ?1955 ? Procedure Date: ? June 02, 2024 ? Case #: ? [id number] ? Room: ? 5 ? Case Physician: [...] procedure was Emergent. 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 ??Imaging was [...] 3.5 guiding catheter and a 3.5 Fr [place] 20 Mhz using ?Manual pullback. ??Imaging was [...] Procedure Note Nuha Shen MD - 07/20/2024 [facility] Cardiac Catheterization/Intervention Report Patient Name: George Mehta Procedure Date: 06/02/2024 A #: [id number] Primary Physician: Nuha Shen I Case #: [id number] File Name: [id number] Catheterization Order Number: [id number] [facility] FinalReport [place], [place] Patient Name: George Mehta ID#:[id number] :1955 Procedure Date: June 02, 2024 Case [...] was designated as ASA Class IV. The [facility] clinicalfrailty scale is 5: Mildly Frail. Diagnostic Tests: Electrocardiography: EKG was assessed by ECG. EKG was Abnormal. EKG showed STDeviation >= 0.5 mm. Medications Prior to Procedure: Sacubitril and Valsartan, Aspirin, Beta Erik, Statin and Thrombolytic (any). Indications for Diagnostic Cath: The priority of the diagnostic procedure was Emergent. 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 A total tt302ut of Omnipaque were opened, 84cc of Omnipaque were administered xbb88rv of Omnipaque were wasted. Radiation: Fluoro time [...] 3.5 guiding catheter and a 3.5 Fr [place] 20 Mhz usingManual pullback. Imaging was successful. [...] 3.5 guiding catheter and a 3.5 Fr [place] 20 Mhzusing Manual pullback. Imaging was successful. Indication: IVUS performed for pre intervention planning. Findings Pre-Intervention: scattered plaque, calcification and [id number] degrees calcification. Findings Post-Intervention: Stent not imaged [...] * POC, GLUCOSE (06/02/2024 11:31 PM EDT) [facility] Glucometer, POC 156 65 - 199 mg/dL 06/02/2024 11:31 PM EDT [facility] Comment:Supplemental ranges: <140 mg/dL before meals <180 mg/dL all other times of the day. Blood CAPILLARY BLOOD / Unknown 06/02/2024 11:31 PM EDT 06/02/2024 11:31 PM EDT Nuha Rojo MD POINT OF CARE TEST ORDERABLES [facility] [place] [address] documented in this encounter Visit Diagnoses Not [...] 2100, Last dose on Fri06/23/24 at 0900, Automatic Gluing Machine Operator recommended duration is 3 days., [...] 8:02 PM EST 2 tablets sodium chloride (Stephenson) 0.65 % nasal spray 1 spray 1 [...] at 2324, Until Miguelina 06/03/24 at 0009, Administer over 2 Minutes, Intra-Operative [...] - Comment: [phone] (Given - Provider: Mcihelle Orozco RN - Comment: CHO [phone] (Given [...] 2100, Last dose on Fri06/23/24 at 0900, Automatic Gluing Machine Operator recommended duration is 3 days., [...] oral route first line., Routine sodium chloride (Stephenson) 0.65 % nasal spray 1 spray 1 [...] Routine documented in this encounter Care Teams Drilling And Production Superintendent Relationship Specialty Start Date End Date Mauro Berumen MD [address] [place] [address] PCP - General Family Medicine 06/02/24 documented as of this encounter
--- OUTSIDE RECORDS SUMMARY | 2024-08-18 10:29 | XMS_ITS | Continuity of Care Document ---
Author Organization [facility] Address [address] [place] [address] Assessment No assessment recorded. Plan of Treatment Reminders Order Date Submit Date Provider Last Modified By Organization Details Last Modified Time Details Appointments hospital follow up 2024 11:40A M BEATRIS DANIELLE Not available Not available Not available Office Visit 2024 08:30A M BEATRIS SANTOS Not available Not available Not available Lab None recorded. Referral None recorded. Procedures None recorded. Surgeries None recorded. Imaging None recorded. Medication Orders None recorded. Patient TargetsNo targets recorded. Patient InstructionsNo instructions recorded. Reason for Referral None Reported. Results Created Date Observation Date Name Description Value Unit Range Abnormal Flag Note LastModifiedBy Organization Detail LastModifiedTime 06/02/20 24 06/02/2024 vrad girish lopez Name: Erica Hernandez Unit #: [id number] Loc: ER Orderi ng Provid er: Accoun t #: [id number] Status : REG ER Primar y [...] MD. Lanette bernard:Mikey Luque MD Access ion#=[id number] Ordere d By: CC: ------ ------ [...] the addres s above. Thank- you. sergio [facility] [address], [place], [address] 06/07/2024 08:13:56 06/03/20 24 06/03/2024 XR, chest , 1 view Patien t Name: Erica Hernandez Unit #: [id number] Loc: ANGELA bernard Provid er: Moises Hua Accoun t #: [id number] Status : DEP ER Primar y Care Provid er: Jack Santos M.D. Date of Exam: Sex: M Admiss ion Date: : 1954 Age: 69 Exam(s ) XR PORTAB LE CHEST AP EXAM: XR PORTAB LE CHEST AP CLINIC AL HISTOR Y: chest pain TECHNI QUE: 2D digita l imagin g was perfor med. COMPAR TARAH: No exams were availa ble for compar atrah FINDIN GS: LUNGS: Clear. No pleura l [...] error, please notify us immedi abigailly at [phone] and return the origin al report to us at the addres s above. Thank- you. [email or web address] [facility] [address] , [place], [address] 08/17/2024 08:20:17 Result Notes None recorded. Problems Name Problem SNOMED Code Status Onset Date Resolution Date Notes Provider Name and Address Organization Details Recorded Time Coronary artery bypass grafts x 3 Active 2023 BEATRIS SANTOS MD [address], [place], [address] , [facility] 4 11:27:04 Type 2 diabetes mellitus 94298577 Active [address], [place], [address], [facility] 4 16:23:15 Coronary arterioscle rosis 28657309 Active 2023 DC x 3, with stents Pacer AICD MD [address], [place], [address], [facility] 4 23:10:58 Essential hypertensio n 16942528 Active [address], [place], [address], [facility] 4 23:10:54 Chronic left-sided congestive heart failure 8590377 Active 2023 ICD. last echo 50% up from 35% post DC MD [address], [place], [address], [facility] 4 18:10:13 Malignant melanoma 710809116 Active 2016 left scalp MD [address], [place], [address], [facility] 4 14:10:50 Adult health examination Active [address], [place], [address], [facility] 4 11:43:13 Onychomycos is 535850849 Active 2023 toenails MD [address], [place], [address], [facility] 4 11:47:27 Neuropathy due to diabetes mellitus 604493047 Active [address], [place], [address], [facility] 4 16:23:51 Mixed anxiety and depressive disorder 779969353 Active [address], [place], [address] , [facility] 4 16:27:39 Ambulatory continuous glucose monitoring of interstitia l tissue fluid Active [address], [place], [address] , [facility] 4 23:10:45 Hearing loss 83403277 Active [address], [place], [address] , [facility] 4 23:11:04 Notes:Some problems listed i n Document: #[id number] could not be added to this patient's [...] by oral route as needed. active Per [facility] d/c 06/21/24 Not Available Not Available Not Available carvedilo l 12.5 mg tablet TAKE ONE TABLET BY MOUTH TWICE A DAY active Stopped per [facility] d/c summary 08/16/24 Not Available Not Available Not Available metoprolo l succinate ER 50 mg tablet,ex tended release 24 hr Take 1 tablet every day by oral route. active Per [facility] d/c summary 08/16/24 Not Available Not Available Not Available glipizide 10 mg tablet TAKE ONE [...] Not Available Not Available No t Available nitroglyc guillermina 0.4 mg sublingua l tablet Place 1 tablet by sublingu al route. active every 5 minutes for chest pain times 3 then call 911. Per [facility] d/c summary 08/16/24 Not Available Not Available Not Available furosemid e 20 mg tablet Take 1 tablet every day by oral route. active Changed per [facility] d/c summary 08/16/24. Take 20 mg one time for weight gain of 2 lbs over night or 5 lbs in 5 days Not Available Not Available Not Available ketoconaz ole 2 % topical cream [...] tablet every 12 hours by oral route. 08/17 completed Per [facility] d/c 06/21/24 Not Available Not Available Not [...] THE SKIN ONCE DAILY AT BEDTIME active Decrease d to 15 units daily per [facility] d/c summary 08/16/24. He was taking 30 units Not Available Not Available Not Available BD [...] mL 4 completed MD [address], [facility] [address], [facility] 08/30/2023 19:29:40 Tdap 4 completed MD [address], [place] [id number], [facility] 12/01/2023 18:15:36 Influenza, high-dose, trivalent, PF 4 completed HANNAH DIMAS CMA null, [facility] 05/18/2024 11:35:26 COVID-19, mRNA, LNP-S, PF, jeferson-sucrose, 30 mcg/0.3 mL 4 completed HANNAH DIMAS CMA null, [facility] 05/18/2024 11:35:26 Pneumococcal conjugate PCV20, polysaccharide [id number] conjugate, adjuvant, PF 3 completed JENNIFER SORENSEN MA null, [facility] 08/12/2023 15:42:12 influenza, unspecified formulation 3 completed ANDRÉS DOYLE, [place] [facility]. 08/26/2023 11:13:50 Past Encounters Encounter ID Performer Location Encounter Start Date Encounter Closed Date Diagnosis/Indication Diagnosis SNOMED-CT Code Diagnosis ICD10 Code Diagnosis Note [id number] HANNAH DIMAS CMA [facility] [address] [place] [address] 05/18/2024 11:25:09 05/18/2024 11:36:19 Active or passive immunization 621887112 Z23 Health Concerns Section Related Observation LastModified by Organization Detai ls LastModified Time None Recorded Concern Status LastModified by Organization Details LastModified Time None Recorded Payers Encounter Date Sequence Insurance Name Policy Number Policy Suazo Covered Member ID Suazo Member ID Guarantor Name 05/18/2024 1 [facility] (MEDICARE REPLACEMENT/A DVANTAGE - PPO) [id number] Arturo Mehta [id number] Arturo Mehta
--- OUTSIDE RECORDS SUMMARY | 2024-08-18 10:29 | XMS_ITS | Encounter Summary ---
Author Organization [facility] Address [facility] [place] [address] Care Team Providers Care Engineering Recruiter Name Role Phone Mauro Berumen MD Primary Care Provider [phone] Encounter Details Date Type Department Care Team (Late st Contact Info) Description 06/02/2024 Notes Only Cardiology [facility] [place] [phone] Sascha [place] MD [facility] [place] [address] Social History Tobacco Use Types Packs/Day Years Used Date Smoking Tobacco: Never Assessed [facility] Utilities Answer Date Recorded In [...] in a correction (including now)? No 06/03/2024 IPV Inpatient Questions [...] Data If Hospital to which patient presented= [facility]: ED Walk In Date and Time of First Medical Contact: 06/02/2024 9:20 PM Medical History (prior to current presentation) Myocardial Infarction: Yes Diabetes Mellitus: Yes Prior Percutaneous Coronary Intervention: Yes Prior Coronary Artery Bypass Graft: No Presenting Symptoms per OSH/EMS Free Text 855 PM acute on set pressure on chest. Presented to ED. Appears ashen. No contraindicationst to lytics. No cabg, 3X [place] with JENNA, most recent 5 years ago. 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 to laboratory mechanic helper STEMI Alert called: Yes Commercial Diver Activated by: Commercial Shrimping Captain Initial Disposition: Admit Commercial Diver documented in this encounter Plan of Treatment Upcoming Encounters Date Type Department Care Team (Late st Contact Info) Description 09/29/2024 2:00 PM EST Office Visit Cardiology at [address] [address] Moi Falcon MD [facility] [place] [address] documented as of this encounter Visit Diagnoses Not on filedocumented in this encounter Care Teams Engineering Recruiter Relationship Specialty Start Date End Date Mauro Berumen MD [address] [place] [address] PCP - General Family Medicine 06/02/24 documented as of this encounter
--- OUTSIDE RECORDS SUMMARY | 2024-08-18 10:29 | XMS_ITS | Referral Summary ---
Author Organization [facility] Address [address] [place] [address] Care Team Providers Care Noc Engineer Name Role Phone Jesu Guerra [facility] Primary Care Provider [phone] Social History Tobacco Use Types Packs/Day Years Used Date Smoking Tobacco: Never Assessed Sex and Gender Information Value Date Recorded Sex Assigned at Not on file Legal Sex Male 23:22 EDT Gender Identity Not on file Sexual Orientation Not on file Plan of Treatment Not on file Insurance [employer] MEDICARE Care Teams Noc Engineer Relationship Specialty Start Date End Date Jesu Guerra, DNP [facility] [place] [address] PCP - General Family Medicine - Primary Care 10/03/23
--- OUTSIDE RECORDS SUMMARY | 2024-08-18 10:29 | XMS_ITS | Encounter Summary ---
Author Organization On License Of [facility] Address [facility] [place] [address] Care Team Providers Care Vessel Traffic Officer Name Role Phone Mauro Berumen MD Primary Care Provider [phone] Encounter Details Date Type Department Care Team (Late st Contact Info) Description 06/02/2024 External Results Administration [facility] [place] [phone] Social History Tobacco Use Types Packs/Day Years Used Date Smoking Tobacco: Never Assessed [facility] Utilities Answer Date Recorded In the past 12 months has th e electric, gas, oil, or water [employer] threatened to shut off services in your [...] were you homeless or living in a longterm (including now)? No 06/03/2024 IPV Inpatient Questions [...] 2:00 PM EST Office Visit Cardiology at [address] [address] Moi Falcon MD [facility] [place] [address] documented as of this encounter Procedures Procedure Name Priority Date/Time Associated Diagnosis Comments MISC EXTERNAL CARDIOLOGY RESULT Routine 06/02/2024 9:54 PM EDT documented in this encounter Results * External Cardiology Result (06/02/2024 9:54 PM EDT) Anatomical Region Laterality Modality Other Historical Provider EXTERNAL CARDIOLO GY RESULT documented in this encounter Visit Diagnoses Not on filedocumented in this encounter Care Teams Vessel Traffic Officer Relationship Specialty Start Date End Date Mauro Berumen MD [address] [place] [address] PCP - General Family Medicine 06/02/24 documented as of this encounter
--- OUTSIDE RECORDS SUMMARY | 2024-08-18 10:29 | XMS_ITS | Encounter Summary ---
Author Organization [facility] Address [address] [place] [address] Care Team Providers Care Almond Huller Name Role Phone Jesu Guerra [facility] Primary Care Provider [phone] Encounter Details Date Type Department Care Team (Late st Contact Info) Description 10/31/2023 Lab Requisition [facility] Pathology & Laboratory Medicine - [facility] [address] [place] [address] Yousif Carlin PA [address] [place] [address] [address] [place] [phone] Melanocytic nevi, unspecified Social History Tobacco Use [...] management options, if applicable. 11/04/2023 9:43 EDT [facility] Final Diagnosis A. SKIN OF CHEEK, LEFT, SHAVE BIOPSY: - Seborrheic keratosis, pigmented. 11/04/2023 9:43 EDT [facility] Attestation By the signature below, the attending physician certifies that they have 1) personally conducted a gross and/or microscopic examination of the described specimen(s), and/or personally interpreted the results of laboratory testing of the described specimen(s), and 2) personally rendered or confirmed the above diagnosis. 11/04/2023 9:43 [facility] at 0943 Microscopic Description [...] dermis and patchy lichenoid inflammation. 11/04/2023 9:43 [facility] Clinical History Atypical nevus, history melanoma; clinical diagnosis code: D22.9 11/04/2023 9:43 [facility] Gross Description A. Received in formalin labelled with proper patient identification (initials K, K) and L cheek is a 1.3 x 1.0 x 0.1 cm irregular shave of mottled rodriguez white to dark brown skin. The margin is inked. The specimen is trisected and entirely submitted in A1. HENOK GOLDEN(ASC) 11/03/2023 9:00 11/04/2023 9:43 [facility] Performing Lab [facility] 11/04/2023 9:43 [facility] Scanned Images 11/04/2023 9:43 T [facility] Tissue SPECIMEN FROM SKIN / Unknown 10/31/2023 14:10 EDT 10/31/2023 23:24 EDT us Yousif [facility] PATHOLOGY ORDERABLES Final Result [facility] [address] [place] [address] documented in this encounter Visit Diagnoses Diagnosis Melanocytic nevi, unspecified documented in this encounter Care Teams Almond Huller Relationship Specialty Start Date End Date Jesu Guerra, DNP [address] [place] [address] PCP - General Family Medicine - Primary Care 10/03/23 documented as of this encounter
--- OUTSIDE RECORDS SUMMARY | 2024-08-18 10:29 | XMS_ITS | Clinical Summary ---
Author Organization [facility] Address [address] [place] [address] Care Team Providers Care Substation Operator Automatic Name Role Phone Jesu Guerra [facility] Primary Care Provider [phone] Social History Tobacco Use Types Packs/Day Years [...] 2032 Insurance [employer] Care Teams Substation Operator Automatic Relationship Specialty Start Date End Date Jesu Guerra, [place] [address] [place] [address] PCP - General Family Medicine - Primary Care 10/03/23
--- OUTSIDE RECORDS SUMMARY | 2024-08-20 10:56 | XMS_ITS | Clinical Summary ---
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 (HFrEF, <= 40%) 06/05/2024 Coronary artery disease invo lving coquille coronary artery of coquille heart without angina pectoris 06/05/2024 Type 2 diabetes mellitus 06/05/2024 STEMI (ST elevation myocardial infarction) 06/02 Encounters Date Type Department Care Team Description 08/14/2024 7:42 PM EST - 08/16/2024 2:48 PM EST Hospital Encounter Heart and Vascular Unit Level 3 [place] [phone] Jim Benites MD Vinod, Poornima, MD Elevated troponin; Chest pain, unspecified type Discharge Disposition: Home 08/13/2024 Telephone Cardiology at [address] [phone] Katy Maurer APRN 08/13/2024 External [place] [phone] 07/20/2024 3:20 PM EST Office [place] [address] Wendi Loja MD Post-operative state 07/20/2024 Notes Only Cardiology at [address] [phone] Esha Jones RN 07/20/2024 Travel 06/15/2024 Unscheduled Encounter Cardiology at [address] [phone] Ross Corbin PA Cardiac resynchronization therapy defibrillator (SANDWICH MAKER-D) in place [Z95.810] 06/14/2024 7:30 AM EST - 06/14/2024 2:08 PM EST Surgery Main Operating Room [place] [phone] Wendi Loja MD @CABG, USING ARTERIAL GRAFT;SINGLE ARTERIAL GRAFT (WRVU 33.75) 06/14/2024 7:30 AM EST Anesthesia Event Main Operating Room [place] [phone] Hosea Ardon MD Budney, Colleen E, SUPERVISOR COUNSELING AND GUIDANCE 06/14/2024 Unscheduled Encounter Cardiology at [place] [phone] Ross Corbin PA Cardiac resynchronization therapy defibrillator (SANDWICH MAKER-D) in place [Z95.810] 06/13/2024 9:00 AM EST - 06/13/2024 10:00 AM EST Surgery Color Depositing Machine Tender [place] [phone] Nuha Shen MD CARDIAC CATHETERIZATION 06/08/2024 Ophth Exam Ophthalmology at [place] [phone] Yumiko De La Torre, COT 06/03/2024 [place] [address] Unknown 06/03/2024 Travel 06/02/2024 11:09 PM EDT - 06/21/2024 1:07 PM EST Hospital Encounter Heart and Vascular Unit Level 4 [place] [address] Nuha Shen MD Costa, Salvatore P, MD Bernas, Monika A, MD Flint, Danette L, MD Rassias, MD Freedom Lopez Henry J, MD ST elevation myocardial infarction (STEMI), unspecified artery; Coronary artery disease involving coquille coronary artery of coquille heart without angina pectoris; S/P CABG x 3 Discharge Disposition: Home with [facility] 06/02/2024 11:00 PM EDT - 06/03/2024 12:18 AM EDT Surgery [employer] [place] [address] Nuha Shen MD CARDIAC CATHETERIZATION 06/02/2024 External [place] [phone] 06/02/2024 [place] [address] Sascha Silva MD from Last 3 Months Social History Tobacco Use Types Packs/Day Years Used Date Smoking Tobacco: Former Cigarettes Smokeless Tobacco: Never Tobacco Cessation:Counseling Given: Not Answered [facility] Utilities Answer Date Recorded In the past 12 months has th e [employer], gas, oil, or water company threatened to [...] time in the past 12 m [facility], were you homeless or living [...] 2:00 PM EST Office Visit Cardiology at [address] [phone] Moi Falcon MD [facility] [place] [address] Health Maintenance Due Date Last Done Comments [...] history exists Medical Devices Implanted Type Area Return Checker Device Identifier Shelf Expiration Date Model / Serial / Lot t Jacob Mri Quad Crtd-06/16/2019 Implanted:06/16/2019 (Quantity not on file) Cardiac Resynchronizati on Therapy - Defibrillator Chest Medtronic Cardio - [id number] / [id number] / Description:When scanned at [facility] [place] this SureScan System ([id number] and leads 4076, 6935M, and 4298) can [...] Clip 35mm Closure Exclusion System Preloaded Atriclip ([id number]) (Autoreq) - [id number] Implanted:Qty: 1 on 06/14/2024 by Wendi Loja MD at [facility] IMPLANTS N/A: Heart ATRICURE - ATRICURE 03/04/2027 [id number] / / [id number] Cable,Cut,Edg,Blnt,S s,3tpr ([id number]) - [id number] Implanted:Qty: 1 on 06/14/2024 by Wendi Loja MD at [facility] IMPLANTS Midline: Sternum [employer] - [id number] 09/10/2028 [id number] / / [id number] Mdt 4076 Capsurefix Novus Lead-06/16/2019 Implanted:Qty: 1 on 06/16/2019 Lead Chest Medtronic Cardio - [id number] / [id number] / Description:Atrial Lead 4076 See Generator Tab for MRI Conditions Octaviano Hawkins RT (R)(MR) 06/04/2024 Janett 6935m Lead-06/16/2019 Implanted:Qty: 1 on 06/16/2019 Lead Chest Medtronic Cardio - [id number] 6935M / [id number] / Description:RV Lead See Generator Tab for MRI Conditions Octaviano Hawkins RT (R)(MR) 06/04/2024 Janett 4298 Attain Performa Lead-06/16/2019 Implanted:Qty: 1 on 06/16/2019 Lead Chest Medtronic Cardio - [id number] / [id number] / Description:LV Lead See Generator Tab [...] 8:39 AM EST Unlisted Cardiac Surg Procedure ([id number]) 06/14/2024 7:34 AM EST 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) 06/14/2024 7:34 AM EST CAD Endoscopy W/Video-Asst Vein [place], Cabg (71855) 06/14/2024 7:34 AM EST CAD [place]g, Artery-Vein, Two (92555) 06/14/2024 7:34 AM EST CAD Cabg, Arterial, Single (97081) 06/14/2024 7:34 AM EST CAD TRANSESOPHAGEAL ECHOCARDIOGRAM IN THE OR Routine 06/14/2024 7:20 AM EST Coronary artery disease involving coquille coronary artery of coquille heart without angina pectoris POC, GLUCOSE Routine [...] POC, GLUCOSE Routine 06/02/2024 11:31 PM EDT [facility] RES[place] Routine 06/02/2024 9:54 PM EDT from Last 3 Months Results * (ABNORMAL) POC, GLUCOSE (08/16/2024 12:03 PM EST) Only the most recent of143 resultswithin the time period is included. Pathologist [facility] Glucometer, POC 263(H) 65 - 199 mg/dL 08/16/2024 12:03 PM EST [facility] Comment:Supplemental ranges: <140 mg/dL before meals <180 mg/dL all other times of the day. Blood CAPILLARY BLOOD / Unknown 08/16/2024 12:03 PM EST 08/16/2024 12:03 PM EST Evelyn Mckinnon MD POINT OF CARE TEST O RDERABLES [facility] [place] [address] * EKG 12 Lead (08/16/2024 8:44 AM EST) Only the most recent of4 resultswithin the time period is included. Ventricular rate 80 BPM MUSE SYSTEM Atrial Rate 80 BPM MUSE SYSTEM P-R Interval 180 ms MUSE SYSTEM QRS Duration 90 ms MUSE SYSTEM Q-T Interval 374 ms MUSE SYSTEM QTC Calculated (Bezet) 431 ms MUSE SYSTEM Calculated P Latham 63 degrees MUSE SYSTEM Calculated R [place] 22 degrees MUSE SYSTEM Calculated T L[place] 129 degrees MUSE SYSTEM INTERPRETATION AV dual-paced [...] Heparin 0.32 IU/mL 08/16/2024 12:55 AM EST [facility] [...] EST Octaviano Quiñones MD HEMATOLOGY ORDERABLE S [facility] [place] [address] * (ABNORMAL) CBC (with Diff) (08/16/2024 12:32 AM EST) Only the most recent of16 resultswithin the time period is included. White Blood Cell 8.55 4.00 - 9.50 x10(3)/mc L 08/16/2024 12:[address] [facility] Red Blood Cell 4.17(L) 4.58 - 5.54 x10(6)/mc L 08/16/2024 12:[address] [facility] Hemoglobin 12.3(L) 13.7 - 16.5 g/dL 08/16/2024 12:[address] [facility] Hematocrit 37.9(L) 40.5 - 48.5 % 08/16/2024 12:[address] [facility] Mean Cell Volume 90.9 82.9 - 93.1 fL 08/16/2024 12:[address] [facility] Mean Cell Hemoglobin 29.5 27.5 - 32.1 pg 08/16/2024 12:[address] [facility] Mean Cell Hemoglobin Concentration 32.5 32.0 - 35.7 g/dL 08/16/2024 12:[address] [facility] Platelet 192 145 - 357 x10(3)/mc L 08/16/2024 12:[address] [facility] Mean Platelet Volume 9.5 7.6 - 12.9 fL 08/16/2024 12:[address] [facility] RDW Standard Deviation 44.7 36.0 - 45.0 fL 08/16/2024 12:[address] [facility] RDW coefficient of variation 13.2 11.4 - 13.8 % 08/16/2024 12:[address] [facility] NRBC% auto 0.0 % 08/16/2024 12:[address] [facility] NRBC Absolute <0.01 <0.01 x10(3)/mc L 08/16/2024 12:[address] [facility] Neutrophil % 53.8 % 08/16/2024 12:[address] [facility] Neutrophil Absolute (ANC) - Automated 4.61 1.70 - 6.10 x10(3)/mc L 08/16/2024 12:[address] [facility] Lymph % 30.1 % 08/16/2024 12:[address] [facility] Lymph Absolute 2.57 0.90 - 3.20 x10(3)/mc L 08/16/2024 12:[address] [facility] Monocyte % 10.2 % 08/16/2024 12:[address] [facility] Monocyte Absolute 0.87 0.30 - 0.90 x10(3)/mc L 08/16/2024 12:[address] [facility] Eos % 4.8 % 08/16/2024 12:[address] [facility] Eos Absolute 0.41(H) 0.00 - 0.40 x10(3)/mc L 08/16/2024 12:[address] [facility] Basophil % 0.7 % 08/16/2024 12:[address] [facility] Baso Absolute 0.06 0.00 - 0.10 x10(3)/mc L 08/16/2024 12:[address] [facility] Immature Gran % 0.4 % 12:[address] [facility] Immature Gran Absolute <0.04 0.00 - 0.04 x10(3)/mc L 08/16/2024 12:[address] [facility] Blood VENOUS BLOOD SPECIMEN / Unknown Venipuncture / Unknown 08/16/2024 12:32 AM EST 08/16/2024 12:41 AM EST Octaviano Quiñones MD HEMATOLOGY ORDERABLE S Performing Organization Address City/[facility]/ZIP Co de Phone Number [facility] [place] [address] * Magnesium (08/16/2024 12:32 AM EST) Only the most recent of13 resultswithin the time period is included. Magnesium 0.85 0.69 - 1.07 mMol/L 08/16/2024 1:[address] [facility] Blood VENOUS BLOOD SPECIMEN / Unknown Venipuncture / Unknown 08/16/2024 12:32 AM EST 08/16/2024 12:41 AM EST Evelyn Mckinnon MD CHEMISTRY ORDERABLES Performing Organization Address [facility] Co de Phone Number [facility] [place] [address] * (ABNORMAL) Basic Metabolic Panel (08/16/2024 12:32 AM EST) Only the most recent of22 resultswithin the time period is included. Glucose 210(H) 65 - 199 mg/dL 08/16/2024 1:[address] [facility] Comment:Glucose Concentratio n >=200 mg/dL plus symptoms is consistent with Diabetes Mellitus. Blood Urea Nitrogen 23(H) 10 - 20 mg/dL 08/16/2024 1:[address] [facility] Creatinine 1.02 0.80 - 1.50 mg/dL 08/16/2024 1:[address] [facility] Sodium 136 135 - 145 mMol/L 08/16/2024 1:[address] [facility] Potassium 4.3 3.5 - 5.0 mMol/L 08/16/2024 1:[address] [facility] Chloride 101 98 - 107 mMol/L 08/16/2024 1:[address] [facility] Carbon Dioxide 25 22 - 31 mMol/L 08/16/2024 1:12 AM EST [facility] Anion Gap 10 5 - 15 mMol/L 08/16/2024 1:12 AM EST [facility] Calcium 8.9 8.5 - 10.5 mg/dL 08/16/2024 1:12 AM EST [facility] Est Glomerular Filtration Rate - Male 81 mL/min/1. 73 m?? 08/16/2024 1:12 AM EST [facility] Comment: This patient's estimated GFR [...] AM EST Evelyn Mckinnon MD CHEMISTRY ORDERABLES [facility] [place] [address] * ECHO COMPLETE W CONTRAST (08/15/2024 12:57 PM EST) EF 31 HEARTLAB SYSTEM Anatomical Region Laterality Modality Cardiac Other 08/15/2024 12:0 0 PM EST Narrative 08/15/2024 1:42 PM EST [address] [place] [address] ? Echocardiogram Report Name: GEORGE MEHTA ?Study Date: 08/15/2024 12:00 PMBP: 118/72 mmHg : 1955 ? Height: 168 cm ? Account: [id number] Age: 69 yrs ? Weight: 93 kg Gender: Male ?BSA: 2.0 m2 Ordering Physician: OCTAVIANO QUIÑONES Referring Physician: ANA COLON Performed By: Sandra Worthy RDCS Reason For Study: Elevated troponin Exam Location: [facility]. Interpretation Summary 1. Left ventricular systolic function [...] side images at end of report). Procedure Complete-[id number]. Image enhancement Definity was used for left [...] Note Jim Benites MD - 08/15/2024 [address] [place] [address] Echocardiogram Report Name: GEORGE MEHTA Raad Study Date: 2:00 PMBP: 118/72 mmHg : 1955 Height: 168 cm Account: [id number] Age: 69 yrs Weight: 93 kg Gender: Male BSA: 2.0 m2 Ordering Physician: OCTAVIANO QUIÑONES Referring Physician: ANA COLON Performed By: Sandra Worthy RDCS Reason For Study: Elevated troponin Exam Location: [facility]. Interpretation Summary 1. Left ventricular systolic function [...] side images at end of report). Procedure Complete-[id number]. Image enhancement Definity was used for left [...] 27(H) <=22 ng/L 08/15/2024 5:33 AM EST [facility] [...] can be found in the [facility] Laboratory Test Catalog Troponin - [email or web address] Reference: Fourth Rattan Definition of Myocardial Infarction. Journal of the [place] [employer] 2018;72:6757-9266 Blood VENOUS BLOOD SPECIMEN / Unknown Venipuncture / Unknown 08/15/2024 5:00 AM EST 08/15/2024 5:04 AM EST Octaviano Quiñones MD CHEMISTRY ORDERABLES [facility] [place] [address] * Ferritin (08/15/2024 4:59 AM EST) Pathologist [facility] Ferritin 70 31 - 409 ng/ml 08/15/2024 6:09 AM EST [facility] Blood VENOUS BLOOD SPECIMEN / Unknown Venipuncture / Unknown 08/15/2024 4:59 AM EST 08/15/2024 5:04 AM EST Octaviano Quiñones MD CHEMISTRY ORDERABLES Performing Organization Address City/[facility]/ZIP Co de Phone Number [facility] [place] [address] * (ABNORMAL) Iron and TIBC (08/14/2024 9:40 PM EST) Pathologist [facility] Iron 62 45 - 160 mcg/dL 08/15/2024 2:18 AM EST [facility] TIBC 354 250 - 450 mcg/dL 08/15/2024 2:18 AM EST [facility] Iron Saturation 18(L) 20 - 50 % 2:[address] [facility] Blood VENOUS BLOOD SPECIMEN / Unknown Venipuncture / Unknown 08/14/2024 9:40 PM EST 08/14/2024 9:45 PM EST Octaviano Quiñones MD CHEMISTRY ORDERABLES Performing Organization Address City/[facility]/ZIP Co de Phone Number [facility] [place] [address] * (ABNORMAL) Hemoglobin A1c (08/14/2024 9:40 PM EST) Only the most recent of2 resultswithin the time period is included. [facility] Hemoglobin A1c 6.9(H) 4.3 - 5.6 % 08/14/2024 10:06 PM EST [facility] Comment: Per ADA guidelines, without [...] red blood cell turnover may not be graphic art sales representative of glycemic control. Reference Interval: 4.3 - 5.6% 5.7 - 6.4%: Consistent with prediabetes >=6.5%: Consistent with diagnosis of diabetes mellitus Estimated Average Glucose 151 mg/dL 08/14/2024 10:06 PM EST [facility] Blood VENOUS BLOOD SPECIMEN / Unknown Venipuncture / Unknown 08/14/2024 9:40 PM EST 08/14/2024 9:46 PM EST Octaviano Quiñones MD CHEMISTRY ORDERABLES [facility] [place] [address] * External Cardiology Result (08/13/2024 1:38 PM EST) Anatomical Region Laterality Modality Other Historical Provider EXTERNAL CARDIOLO GY RESULT * XR Chest PA & Lateral (Generic) (06/17/2024 1:46 PM EST) Only the most recent of2 resultswithin the time period is included. WORKSTATION ID [id number] RAD Anatomical Region Laterality Modality Chest N/A [...] who have questions please contact the health insurance healthcare consultant that requested your imaging first. ? Narrative [...] patients who have questions please contactthe health insurance healthcare consultant that requested your imaging first. Electronically signed by: Josselyn Spence MD, [facility]([phone]), at 06/17/2024 4:49 PM Keila Hanley APRN IMG DX ORDERABLES * (ABNORMAL) Hemogram (06/17/2024 2:39 AM EST) Only the most recent of2 resultswithin the time period is included. White Blood Cell 13.53(H) 4.00 - 9.50 x10(3)/mc L 06/17/2024 2:53 AM EST [facility] Red Blood Cell 3.55(L) 4.58 [...] 32.0 - 35.7 g/dL 06/17/2024 2:[address] [facility] Platelet 101(L) [...] ORDERABLE S [facility] [place] [address] * Lactate, Whole Blood (06/17/2024 2:39 AM EST) Only the most recent of3 resultswithin the time period is included. Lactate, Whole Blood 1.3 0.5 - 2.2 mmol/L 06/17/2024 2:46 AM EST [facility] Blood VENOUS BLOOD SPECIMEN / Unknown Venipuncture / Unknown 06/17/2024 2:39 AM EST 06/17/2024 2:43 AM EST Wendi Loja MD CHEMISTRY ORDERABLES Performing Organization Address City/[facility]/ZIP Co de Phone Number [facility] [place] [address] * (ABNORMAL) Cooximetry, POC (06/15/2024 9:31 AM EST) Only the most recent of5 resultswithin the time period is included. pO2, Coox 38 mmHg 06/15/2024 9:[address] [facility] Hemoglobin, Coox 12.9(L) 13.7 - 16.5 g/dL 06/15/2024 9:[address] [facility] Oxyhemoglobin, Coox 72.1 % 06/15/2024 9:[address] [facility] Carboxyhemoglo bin, Coox 0.9 % 06/15/2024 9:[address] [facility] Comment: Nonsmokers: 0.5-1.5% COHB ?? Smokers: Variable ??but usually less than 10% ?? Toxic: 20-30% COHB ?? Lethal: Greater than 60% COHB Methemoglobin, Coox 0.3 <=1.5 % 06/15/2024 9:[address] [facility] Blood (Mixed Venous) 06/15/2024 9:31 AM EST 06/15/2024 9:34 AM EST Wendi Loja MD POINT OF CARE TEST O RDERABLES Performing Organization Address City/[facility]/ZIP Co de Phone Number [facility] [place] [address] * (ABNORMAL) Blood Gas, Arterial POC (06/15/2024 [...] - 2.2 mmol/L 06/15/2024 9:21 AM EST [facility] Flow Rate 2.0 L/min 06/15/2024 9:21 AM EST [facility] IONIZED CALCIUM, ARTERIAL 1.14(L) 1.15 - 1.33 mmol/L 06/15/2024 9:21 AM EST [facility] Glucose, Arterial 193 65 - 199 mg/dL 06/15/2024 9:21 AM EST [facility] Comment:Glucose Concentratio n >=200 mg/dL plus symptoms is consistent with Diabetes Mellitus. Blood ARTERIAL BLOOD / Unknown 06/15/2024 9:19 AM EST 06/15/2024 9:20 AM EST Wendi Loja MD POINT OF CARE TEST O RDERABLES [facility] [place] [address] * XR Chest One View (06/15/2024 6:31 AM EST) Only the most recent of4 resultswithin the time period is included. Pathologist [employer] WORKSTATION ID [id number] RAD Anatomical Region Laterality Modality Chest N/A [...] who have questions please contact the health insurance healthcare consultant that requested your imaging first. ? Electronically signed by: Stuart Aponte MD, [facility] ??([phone]), at 06/15/2024 10:38 AM Narrative 06/15/2024 10:38 [...] patients who have questions please contactthe health insurance healthcare consultant that requested your imaging first. Electronically signed by: Stuart Aponte MD, [facility]([phone]), at 06/15/2024 10:38 AM Wendi Loja MD [...] MD CHEMISTRY ORDERABLES Performing Organization Address City/[facility]/[place] [address] * (ABNORMAL) Hemoglobin (06/14/2024 6:19 PM EST) Hemoglobin 13.1(L) 13.7 - 16.5 g/dL 06/14/2024 7:08 PM EST [facility] Blood VENOUS BLOOD SPECIMEN / Unknown Venipuncture / Unknown 06/14/2024 6:19 PM EST 06/14/2024 6:28 PM EST Wendi Loja MD HEMATOLOGY ORDERABLE S Performing Organization Address City/[facility]/ZIP Co de Phone Number [facility] [place] [address] * Prepare RBC (06/14/2024 2:27 PM EST) Status Information Returned [facility] Product Identification RBC [facility] Unit Number [id number] [facility] Product Code [id number] [facility] Unit Blood Type OPOS [facility] Specimen Expiration Date [facility] Volulme 350 [facility] Issue Date / Time [facility] Status [facility] Returned [facility] Product Identification RBC [facility] Unit Number [id number] [facility] Product Code [id number] [facility] Unit Blood Type OPOS [facility] Specimen Expiration Date [facility] Volulme 350 [facility] Issue Date / Time [facility] Blood 06/14/2024 6:2 5 AM EST Haja Byrnes MD BLOOD BANK PRODUCT O RDERABLES [facility] [place] [place] [address] * (ABNORMAL) Platelet count (06/14/2024 12:30 PM EST) Only the most recent of2 resultswithin the time period is included. Platelet 73(L) 145 - 357 x10(3)/mcL 06/14/2024 12:54 PM EST [facility] Blood ARTERIAL BLOOD / Unknown 06/14/2024 12:30 PM EST Comment:Pre-op diagnosis: CAD Wendi Loja MD HEMATOLOGY ORDERABLE S Performing Organization Address [facility] Co de Phone Number [facility] [place] [address] * (ABNORMAL) Hemoglobin and Hematocrit, blood (06/14/2024 [...] ORDERABLE S [facility] [place] [address] * APTT (06/14/2024 12:30 PM EST) Only [...] HEMATOLOGY ORDERABLE S Performing Organization Address City/[facility] Co de Phone Number [facility] [address] * (ABNORMAL) Prothrombin Time (06/14/2024 12:30 PM [...] ORDERABLE S [facility] [place] [address] * Fibrinogen (06/14/2024 12:30 PM EST) Fibrinogen 211 200 - 393 mg/dL 06/14/2024 12:57 PM EST [facility] Comment: A fibrinogen level >100 mg/dL is adequate for hemostasis in most patients without underlying bleeding disorders. Blood ARTERIAL BLOOD / Unknown 06/14/2024 12:30 PM EST 06/14/2024 12:42 PM EST Comment:Pre-op diagnosis: CAD Wendi Loja MD HEMATOLOGY ORDERABLE S Performing Organization Address [facility] de Phone Number [facility] [place] [address] * (ABNORMAL) Scan, Peripheral Blood (06/14/2024 11:23 AM EST) RBC Morphology Abnormal 06/14/2024 11:59 AM EST [facility] Platelet Estimate Decreased(A) Normal 06/14/2024 11:59 AM EST [facility] Aretha cells 1-5 /HPF 06/14/2024 11:59 AM EST [facility] Blood ARTERIAL BLOOD / Unknown 06/14/2024 11:23 AM EST 06/14/2024 11:27 AM EST Wendi Loja MD HEMATOLOGY ORDERABLE S Performing Organization Address [facility] Phone Number [facility] [place] [phone] * Surgical Pathology (06/14/2024 9:53 AM EST) Case Report Surgical Pathology Report ? Case: [id number] ? Authorizing Provider: ??Wendi Loja MD ? Collected: ? 06/14/2024 0953 ? Ordering Location: ? Main Operating Room Kristen ?? Received: ?06/14/2024 1413 ? [facility] ? Hospital ? Pathologist: ? Sandra [...] Inking: External surface inked black Sections/Process ing: Product Control And Logistics Analyst sections in 4 cassettes labeled A1-A4. cmk B. Heart, Atrial Appendage, Left, . B - Labeled/Fixative : Heart, atrial appendage, left, fresh. Quantity/Size: Single, 3.3 x 1.5 x 0.8 cm. Tissue Description: Portion of heart tissue consisting of rodriguez-white, semitranslucent, smooth endocardium with rodriguez-brown muscular myocardium and thin translucent epicardium with adherent adipose tissue. No areas of discoloration identified. Sections/Process ing: Product Control And Logistics Analyst sections in 1 cassette labeled B1. [...] O RDERABLES [facility] [place] [address] * Transesophageal Echo/OR (06/14/2024 7:20 AM EST) Anatomical Region Laterality Modality Cardiac Other 06/14/2024 7:20 AM EST Narrative 06/14/2024 4:36 PM EST Version: 2 Study ID: [id number] [address] [place] [address] ?OR Transesophageal Echo Report Name: GEORGE MEHTA [...] of this mass after consultation with other power transformer repair supervisor experts and the decision was made by [...] MD - 06/14/2024 Version: 2 Study ID: [id number] [address] [place] [address] ORTransesophageal Echo Report Name: GEORGE MEHTA Study [...] of this mass after consultation with other power transformer repair supervisor experts and thedecision was made by surgeon [...] Recheck O POSITIVE 06/13/2024 4:50 PM EST [facility] Blood VENOUS BLOOD SPECIMEN / Unknown Venipuncture / Unknown 06/13/2024 4:11 PM EST 06/13/2024 4:19 PM EST Haja Byrnes MD BLOOD BANK LAB ORDER EUSEBIA [facility] [place] [place] [address] * Type and screen ([facility]CGP/RAFITA) (06/13/2024 11:53 AM EST) [facility] Type O POSITIVE 06/13/2024 1:16 PM EST [facility] PATIENT HISTORY Not Found 06/13/2024 1:16 PM EST [facility] Expires at [id number] on: 06/16/2024 06/13/2024 1:16 PM EST [facility] ANTIBODY SCREEN AUTOMATED Negative 06/13/2024 1:16 PM EST [facility] T&S only valid at [facility] 06/13/2024 1:16 PM EST [facility] Blood VENOUS BLOOD SPECIMEN / Unknown Venipuncture / Unknown 06/13/2024 11:53 AM EST 06/13/2024 11:56 AM EST Narrative [facility] - 06/13/2024 1:16 PM EST This Type and Screen result is only valid at the [facility] Haja Byrnes MD BLOOD BANK LAB ORDER EUSEBIA Performing Organization Address City/[facility]/ZIP Co de Phone Number [facility] [place] [place] [address] * CARDIAC CATHETERIZATION (06/13/2024 9:02 AM EST) Only the most recent of2 resultswithin the time period is included. Anatomical Region Laterality Modality Other Narrative 06/15/2024 9:07 AM EST ?[facility] ? Cardiac Catheterization/Intervention Report ? Patient Name: Tyson, George L. ? Procedure Date: 06/13/2024 ? A #: [id number] ? Primary Physician: Nuha Shen I ? Case #: [id number] ? File Name: [id number] ? Catheterization Order Number: [id number] ? [facility] ? Final Report [place], [place] ? Patient Name: ? George L. Tyson ? ID#: ?[id number] ? : ?1955 ? Procedure Date: ? June 13, 2024 ?Case #: ? [id number] ? Room: ? 6 ? Case Physician: [...] ?was designated as ASA Class IV. The [facility] clinical frailty scale is 5: ?Mildly Frail. [...] procedure was Urgent. The indication for ?the warehouse laborer visit is ACS greater than 24 [...] angiography, vascular ?ultrasound and IABP insertion in warehouse laborer. ? Nuha I Hermelinda, M.D. ? Electronically Signed by: Nuha I Hermelinda, M.D. ? Report Finalized: 06/15/2024 ??08:59 ? Procedure Note Nuha Shen MD - 06/15/2024 [facility] Cardiac Catheterization/Intervention Report Patient Name: George Mehta Procedure Date: 06/13/2024 A #: [id number] Primary Physician: Nuha Shen I Case #: [id number] File Name: [id number] Catheterization Order Number: [id number] [facility] FinalReport [place], [place] Patient Name: George Mehta ID#:[id number] :1955 Procedure Date: June 13, 2024 Case [...] was designated as ASA Class IV. The [facility] clinical frailty scale is5: Mildly Frail. Diagnostic [...] diagnostic procedure was Urgent. 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 Nuha Shen M.D. Electronically Signed by: [...] - 199 mg/dL 06/10/2024 5:50 PM EST [facility] Comment:Glucose [...] CHEMISTRY ORDERABLES [facility] [place] [address] * MRI Cardiac Morphology Function wwo Contrast (06/07/2024 1:10 PM EST) WORKSTATION ID [id number] RAD Anatomical Region Laterality Modality Magnetic Resonan [...] - Mildly dilated left ventricle size with yqbfdpkn-mc-pqfuwlvf decreased LV systolic function. ??LV ejection fraction [...] who have questions please contact the health insurance healthcare consultant that requested your imaging first. ? Electronically signed by: Kriss Alonzo MD, [facility] ([phone]), at 06/07/2024 2:41 PM Narrative 06/07/2024 2:41 [...] VENTRICLE: Mildly dilated left ventricle size with ivnsehep-za-wvnpnmef decreased LV systolic function. ??LV ejection fraction [...] VENTRICLE: Mildly dilated left ventricle size with uzzlwbyi-qq-audofywo decreasedLV systolic function. LV ejection fraction is [...] - Mildly dilated left ventricle size with cjwofbws-lu-xbsnzhum decreasedLV systolic function. LV ejection fraction is [...] patients who have questions please contactthe health insurance healthcare consultant that requested your imaging first. Electronically signed by: Kriss Alonzo MD, [facility]([phone]), at 06/07/2024 2:41 PM Delroy Fofana MD IMG MRI ORDERABLES * Scan Doc: Implantable Devices (06/04/2024 12:00 AM EDT) Narrative 06/04/2024 12:00 AM EDT Ordered by an unspecified provider. Scanning Provider MEDIA MGR SCAN EXT O RDR/RSLT * CT Chest wo Contrast (Generic) (06/03/2024 4:33 PM EDT) [employer] Signature WORKSTATION ID [id number] RAD Anatomical Region Laterality Modality Chest Computed Tomogra phy Impressions 06/03/2024 4:47 PM EDT Cardiomegaly. Biventricular ICD leads in place. Thank you for letting us participate in the care of this patient. ??If you are a health care provider and have any questions regarding this report, please contact the number below. ??For patients who have questions please contact the health insurance healthcare consultant that requested your imaging first. ? Electronically signed by: Stuart Aponte MD, [facility] ??([phone]), at 06/03/2024 4:47 PM Narrative 06/03/2024 4:47 [...] patients who have questions please contactthe health insurance healthcare consultant that requested your imaging first. Electronically signed by: Stuart Aponte MD, [facility]([phone]), at 06/03/2024 4:47 PM Wendi Loja MD IMG CT ORDERABLES * Carotid Duplex, Bilateral (06/03/2024 2:19 PM EDT) VB Text Report Department: Vascular Surgery Lab Patient: [id number] (GEORGE MEHTA) CPT: 99555 Referring Physician: WENDI LOJA ?? Phone: Indications: [...] can be found in the [facility] Test Catalog Troponin - [email or web address] medical [email or web address]/catalogs/565/files/24342 Reference: Fourth Rattan Definition of Myocardial Infarction. Journal of the [place] [employer] College [employer] Cardiology 2018;72:0385-0995 Troponin-T, HS 3 hr delta 06/03/2024 10:50 AM EDT [facility] Comment:Delta troponin value not calculated, sample collected outside of delta calculation time limit. Blood VENOUS BLOOD SPECIMEN / Unknown IP Care Team Draw / Unknown 06/03/2024 10:06 AM EDT 06/03/2024 10:15 AM EDT Delroy Fofana MD CHEMISTRY ORDERABLE S [facility] [place] [address] * ECHO COMPLETE W CONTRAST (06/03/2024 8:46 AM EDT) Anatomical Region Laterality Modality Cardiac Other 06/03/2024 6:52 AM EDT Narrative 06/03/2024 10:32 AM EDT [address] [place] [address] ? Echocardiogram Report Name: GEORGE MEHTA ?Study Date: 06/03/2024 06:52 AM : 1955 ? Height: 168 cm ? Account: [id number] Age: 69 yrs ? Weight: 102 kg Gender: Male ?BSA: 2.1 m2 Ordering Physician: ISAAC MARES Referring Physician: NEHAL QUINTERO Performed By: Sara Kebede RDCS Reason For Study: STEMI Exam Location: [facility]. Interpretation Summary -Left ventricular systolic function [...] fellow performed study of today's date). Procedure Complete-08186. Image enhancement Optison was used for left [...] Note Jonnie Jordan MD - 06/03/2024 [address] [place] [address] Echocardiogram Report Name: GEORGE MEHTA Study Date: 406:52 AM : 1955 Height: 168 cm Account: [id number] Age: 69 yrs Weight: 102 kg Gender: Male BSA: 2.1 m2 Ordering Physician: ISAAC MARES Referring Physician: NEHAL QUINTERO Performed By: Sara Kebede RDCS Reason For Study: STEMI Exam Location: [facility]. Interpretation Summary -Left ventricular systolic function [...] a fellow performed study of's date). Procedure Complete-02668. Image enhancement Optison was used for left [...] can be found in the [facility] Test Catalog Troponin - https://[email or web address] Funding [email or web address].org/catalogs/565/files/08106 Reference: Fourth Rattan Definition of Myocardial Infarction. Journal of the [place] [employer] College of Cardiology 2018;72:9489-1296 Troponin-T, HS 1 hr delta 5 ng/L [...] ORDERABLE S [facility] [place] [address] * (ABNORMAL) Troponin-T, High Sensitivity (06/03/2024 7:39 [...] can be found in the [facility] Test Catalog Troponin - https://[email or web address].org/catalogs/565/files/08856 Reference: Fourth Rattan Definition of Myocardial Infarction. Journal of the [place] [employer] College of Cardiology 2018;72:5259-9282 Blood VENOUS BLOOD SPECIMEN / Unknown IP Care Team Draw / Unknown 06/03/2024 7:39 AM EDT 06/03/2024 7:48 AM EDT Delroy Fofana MD CHEMISTRY ORDERABLE S [facility] [place] [address] * Echocardiogram Transthoracic (06/03/2024 2:23 AM EDT) Anatomical Region Laterality Modality Cardiac Other 06/03/2024 2:23 AM EDT Narrative 06/03/2024 10:32 AM EDT [address] [place] [address] ? Echocardiogram Report Name: GEORGE MEHTA ?Study Date: 06/03/2024 02:23 AM : 1955 Age: 69 yrs Gender: Male Performed By: Sascha [place] MD Reason For Study: STEMI Interpreting Fellow: Sascha Silva. Interpretation Summary Limited echo performed by fellow monotype operator to assess LV function. Left ventricle is mild to moderately dilated. Left ventricular ejection fraction is estimated visually at 25%. There is global dyskinesia with mid-basilar posterior-posterolateral akinesis. Right ventricle is not well seen. RV systolic function is probably normal. There is no prior echo for comparison. Procedure Limited - 55662. Suboptimal quality. Ventricular paced. Left Ventricle Left [...] Note Jonnie Jordan MD - 06/03/2024 [address] [place] [address] Echocardiogram Report Name: GEORGE MEHTA Study Date: 06/03/2024 02:23AM : 1955 Age: 69 yrs Gender: Male Performed By: Sascha [place] MD Reason For Study: STEMI Interpreting Fellow: Sascha Silva. Interpretation Summary Limited echo performed by fellow monotype operator to assess LV function. Left ventricle is mild to moderately dilated. Left ventricular ejectionfraction is estimated visually at 25%. There is global dyskinesia withmid-basilar posterior-posterolateral akinesis. Right ventricle is not well seen. RV systolic function is probablynormal. There is no prior echo for comparison. Procedure Limited - 14974. Suboptimal quality. Ventricular paced. Left Ventricle Left [...] Mares MD CHEMISTRY ORDERABLES Performing Organization Address City/[facility]/ZIP Co de Phone Number [facility] [place] [address] * (ABNORMAL) pro-Brain Natriuretic Peptide (06/03/2024 2:13 AM EDT) NT-proBNP 1,628(H) <=124 pg/mL 06/03/2024 4:15 AM EDT [facility] Blood VENOUS BLOOD SPECIMEN / Unknown IP Care Team Draw / Unknown 06/03/2024 2:13 AM EDT 06/03/2024 2:32 AM EDT Isaac Mares MD CHEMISTRY ORDERABLES [facility] [place] [address] * Hepatic Function Panel (06/03/2024 2:13 AM [...] g/dL 06/03/2024 3:02 AM [facility] Blood VENOUS BLOOD SPECIMEN / Unknown IP Care Team Draw / Unknown 06/03/2024 2:13 AM EDT 06/03/2024 2:32 AM EDT Isaac Mares MD CHEMISTRY ORDERABLES [facility] [place] [phone] * Lipid Panel (Reflex Direct LDL) (06/03/2024 2:13 AM EDT) Cholesterol, Total 76 mg/dL 06/03/2024 3:02 AM [facility] Comment: Desirable: < 200 mg/dL Borderline High: 200 - 239 mg/dL High: > or = 240 mg/dL Triglyceride 75 mg/dL 06/03/2024 3:02 AM [facility] Comment: Normal: <150 mg/dL Borderline High: 150-199 mg/dL High: 200-499 mg/dL Very High: > or =500 mg/dL HDL Cholesterol 39 mg/dL 3:02 AM [facility] Comment:Males: High Risk: <4 0 mg/dL LDL Cholesterol 21 mg/dL 4 3:02 AM [facility] Comment: Desirable: <100 mg/dL [...] ischemic stroke, symptomatic peripheral artery disease) Isaac aMres MD [place] [address] * External Cardiology Result (06/02/2024 9:54 PM [...] wishes to be Full Code Care Teams Enterprise Systems Engineer Relationship Specialty Start Date End Date Mauro Berumen MD [address] [place] [address] PCP - General Family Medicine 06/02/24
--- OUTSIDE RECORDS SUMMARY | 2024-08-20 10:57 | XMS_ITS | Encounter Summary ---
Author Organization [facility] Address [facility] [place] [address] Care Team Providers Care Remarketing Rep Name Role Phone Mauro Berumen MD Primary Care Provider [phone] Encounter Details Date Type Department Care Team (Late st Contact Info) Description 08/13/2024 Telephone Cardiology at [address] [place] [phone] Katy Maurer APRN [facility] [place] [address] Social History Tobacco Use Types Packs/Day Years Used Date Smoking Tobacco: Every Day Cigarettes Smokeless Tobacco: Never [facility] Utilities Answer Date Recorded [...] any time in the past 12 m [facility], were you homeless or [...] Notes * Telephone Encounter - Katy Maurer, DATA COORDINATOR - 08/13/2024 2:52 PM EST Images from the original note were not included. 08/13/2024 Arturo Mehta Initial Contact Date: 08/13/2024 Initial contact time: 2:52 PM Referring Provider: Dr. 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 Imaging was [...] 3.5 guiding catheter and a 3.5 Fr [facility] [place] 20 Mhz using Manual pullback. Imaging was [...] 80 mg Plavix Plan: Patient presented to [facility] ED from cardiac rehabilitation with pre-syncopal [...] thrombosis cannot be excluded.Additionally, he has known PALLIATIVE SENIOR NP/ICD. It is unclear if arrhythmia is culprit for pre-syncopal episode. [facility] will attempt to obtain TTE to evaluate EF and new WMAs if TTE available. I have advised for gentle IV NSS bolus with 250mL fluid in the setting of hypotension and creatinine 1.5 with pre-syncopal symptoms. I have encouraged to hold 20 mg daily Lasix as there is no evidence of fluid overload onexamination. Plan [facility] [place] [facility] [place] med/surg level of care accepting for [...] PM EST Office Visit Cardiology at [address] [phone] Moi Falcon MD [facility] [place] [address] documented as of this encounter Visit Diagnoses Not on filedocumented in this encounter Care Teams Remarketing Rep Relationship Specialty Start Date End Date Mauro Berumen MD [address] [place] [address] PCP - General Family Medicine 06/02/24 documented as of this encounter
--- OUTSIDE RECORDS SUMMARY | 2024-08-20 10:57 | XMS_ITS | Encounter Summary ---
Author Organization [facility] Address [facility] [place] [address] Care Team Providers Care Caustics Loader Name Role Phone Mauro Berumen MD Primary Care Provider [phone] Encounter Details Date Type Department Care Team (Late st Contact Info) Description 07/20/2024 3:20 PM EST Office Visit Cardiac Surgery at [facility] [place] [address] Bobby Loja MD [facility] [place] [address] Post-operative state Social History Tobacco Use Types Packs/Day Years Used Date Smoking Tobacco: Every Day Cigarettes Smokeless Tobacco: Never [facility] Utilities Answer Date [...] any time in the past 12 m [facility], were you homeless or living in a retirement (including now)? No 06/03/2024 DH IPV Inpatient [...] has not yet seen his PCP or electromechanical technologist since surgery. His appetite has been normal [...] cardiac surgery perspective - Follow up with Clinical Therapist (Kristen Cardenas) and PCP (Mauro Berumen) as [...] 2:00 PM EST Office Visit Cardiology at [address] [phone] Moi Falcon MD [facility] [place] [address] documented as of this encounter Procedures Procedure Name Priority Date/Time Associated Diagnosis Comments POC, GLUCOSE Routine 07/20/2024 4:31 PM EST documented in this encounter Results * POC, GLUCOSE (07/20/2024 4:31 PM EST) [facility] Signature Glucometer, POC 125 65 - 199 mg/dL 07/20/2024 4:31 PM EST [facility] Comment:Supplemental ranges: <140 mg/dL before meals <180 mg/dL all other times of the day. Blood CAPILLARY BLOOD / Unknown 07/20/2024 4:31 PM EST 07/20/2024 4:31 PM EST Bobby Loja MD POINT OF CARE TEST O RDERAPIETER Performing Organization Address City/State/[facility] Co de Phone Number [facility] [place] [address] documented in this encounter Visit Diagnoses Diagnosis Post-operative state Other postprocedural status documented in this encounter Care Teams Caustics Loader Relationship Specialty Start Date End Date Mauro Berumen MD [address] [place] [address] PCP - General Family Medicine 06/02/24 documented as of this encounter
--- OUTSIDE RECORDS SUMMARY | 2024-08-20 10:57 | XMS_ITS | Encounter Summary ---
Author Organization [facility] Address [facility] [place] [address] Care Team Providers Care Physician Coding Specialist Name Role Phone Mauro Berumen MD Primary Care Provider [phone] Encounter Details Date Type Department Care Team (Late st Contact Info) Description 07/20/2024 Notes Only Cardiology [place] [address] [place] [address] Esha Jones RN Social History Tobacco Use Types Packs/Day Years Used Date Smoking Tobacco: Every Day Cigarettes Smokeless Tobacco: Never [facility] Utilities Answer Date Recorded In the past [...] BGL was measured to be 40. Nurse Tool Smith Chelsi administered chewable glucose tablets while this [...] 2:00 PM EST Office Visit Cardiology at [address] [phone] Moi Falcon MD [facility] [place] [address] documented as of this encounter Visit Diagnoses Not on filedocumented in this encounter Care Teams Physician Coding Specialist Relationship Specialty Start Date End Date Mauro Berumen MD [address] [place] [address] PCP - General Family Medicine 06/02/24 documented as of this encounter
--- OUTSIDE RECORDS SUMMARY | 2024-08-20 10:57 | XMS_ITS | Encounter Summary ---
Author Organization [facility] Address [facility] [place] [address] Care Team Providers Care Receiver Name Role Phone Mauro Berumen MD Primary Care Provider [phone] Encounter Details Date Type Department Care Team (Late st Contact Info) Description 08/13/2024 External Results Transfer Center [facility] [place] [phone] Social History Tobacco Use Types Packs/Day Years Used Date Smoking Tobacco: Every Day Cigarettes Smokeless Tobacco: Never [facility] Utilities Answer Date Recorded In the past 12 months has th e electric, gas, oil, or water [employer] threatened to shut off services in your [...] in the past 12 m [facility], were you homeless or living in a mcfp (including now)? No 08/16/2024 IPV Inpatient Questions [...] 2:00 PM EST Office Visit Cardiology at [address] [address] Moi Falcon MD [facility] [place] [address] documented as of this encounter Procedures Procedure Name Priority Date/Time Associated Diagnosis Comments MISC EXTERNAL CARDIOLOGY RESULT Routine 08/13/2024 1:38 PM EST documented in this encounter Results * External Cardiology Result (08/13/2024 1:38 PM EST) Anatomical Region Laterality Modality Other Historical Provider EXTERNAL CARDIOLO GY RESULT documented in this encounter Visit Diagnoses Not on filedocumented in this encounter Care Teams Receiver Relationship Specialty Start Date End Date Mauro Berumen MD [address] [place] [address] PCP - General Family Medicine 06/02/24 documented as of this encounter
--- OUTSIDE RECORDS SUMMARY | 2024-08-20 10:57 | XMS_ITS | Encounter Summary ---
Author Organization On License Of [facility] Address [facility] [place] [address] Care Team Providers Care Photo Optics Technician Name Role Phone Mauro Berumen MD Primary Care Provider [phone] Reason for Visit * Auth/Cert (Routine) Specialty Diagnoses / Procedures Referred By Controdolfo t Referred To Contact Diagnoses Elevated troponin NSTEMI (non-ST elevated myocardial infarction) Pre-syncope s/p CABG Procedures EMERGENCY IPI Evelyn Mckinnon MD [facility] [place] [place] [address] [facility] Referral ID Status Reason Start Date Expiration Date Visits Re quested Visits Authorized [id number] 1 1 Encounter Details Date Type Department Care Team (Latest Contact Info) Description 08/14/2024 7:42 PM EST - 08/16/2024 2:48 PM EST Hospital Encounter Heart and Vascular Unit Level 3 [place] [address] Jim Benites MD [facility] [place] [place] [address] Evelyn Mckinnon MD [facility] [place] [place] [address] Elevated troponin; Chest pain, unspecified type Discharge Disposition: Home Social History Tobacco Use Types Packs/Day Years Used Date Smoking Tobacco: Former Cigarettes Smokeless Tobacco: Never Tobacco Cessation:Counseling Given: Not Answered [facility] Utilities Answer Date Recorded In the past 12 months has [facility] JAYS, oil, or water [place] [place] threatened to shut off services in your [...] were you homeless or living in a snf (including now)? No 08/16/2024 IPV Inpatient Questions [...] George Mehta Patient Age: 69 y.o. Language: Citizen Of [place] Admit date: 08/14/2024 Discharge date and time: [...] Provider Contact Information: Evelyn Mckinnon MD Pager #[phone] Discharge Diagnoses (Hospital Problems) and Secondary Diagnoses (Chronic Problems): Active Hospital Problems Diagnosis Elevated troponin NSTEMI (non-ST elevated myocardial infarction) Resolved Hospital Problems No resolved problems to display. 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 The patient was transported to the [facility] in a critical but stable condition Pending [...] of 8AM-5PM please call the Cardiology Clinic [phone] to speak with a nurse. All other hours please call the Hospital Television Anchor [phone] and ask to speak to the cardiovascular hospitalist on-call. For any emergent questions, please call 911 or visit your nearest emergency department/urgent care center Diet-diabetic, cardiac diet, 2 g salt and 2 L fluid restriction per day Activity-as tolerated Follow up Appointments: Doctor Where Phone # Date Time PCP Mauro Berumen MD [address] [place] [address] Aug 23Friday 11.20 AM System Configuration Specialist [facility] Card[facility] 4[facility] Clinic [phone] Sep 29, Friday 2 PM (arrive at 1.40 PM) Home oxygen therapy: N/A Arrangements for VNA/home care: N/A General Instructions None Future Appointments and Orders Future Appointments and Orders Future Appointments Provider Department Dept Phone 09/29/2024 2:00 PM Moi Falcon MD Cardiology at [facility] Arrive at: Chief Information Officer Area [phone] Discharge References/Attachments Orthostatic Hypotension (Citizen Of [place]) Metoprolol Extended Release Oral Capsule (METOPROLOL SUCCINATE EXTENDED-RELEASE CAPSULE - ORAL) (Citizen Of [place]) Nitroglycerin Sublingual Tablet (NITROGLYCERIN - SUBLINGUAL) (Citizen Of [place]) More than 30 minutes were spent on this discharge including documentation, [id number] time with patient, patient education, purchase order checker, and coordination pharmacy, follow-up and other patient [...] of 8AM-5PM please call the Cardiology Clinic [phone] to speak with a nurse. All other hours please call the Hospital Television Anchor [phone] and ask to speak to the cardiovascular hospitalist on-call. For any emergent questions, please call 911 or visit your nearest emergency department/urgent care center Diet-diabetic, cardiac diet, 2 g salt and 2 L fluid restriction per day Activity-as tolerated Follow up Appointments: Doctor Where Phone # Date Time PCP Mauro Berumen MD [address] [place] [address] Aug 23Friday 11.20 AM System Configuration Specialist [facility] Cardiology 4A Clinic [phone] Sep 29Friday 2 PM (arrive at 1.40 PM) Home oxygen therapy: N/A Arrangements for VNA/home care: N/A * Attachments The following attachments cannot be sent through Care Everywhere. * Orthostatic Hypotension (Citizen Of [place]) * Metoprolol Extended Release Oral Capsule (METOPROLOL SUCCINATE EXTENDED- RELEASE CAPSULE - ORAL) (Citizen Of [place]) * Nitroglycerin Sublingual Tablet (NITROGLYCERIN - SUBLINGUAL) (Citizen Of [place]) documented in this encounter Medications at Time [...] Pt seen for use of NIV at [facility] is semi independent with its use. Pt [...] 10:24 AM EST CV HOSPITALIST 1 - [facility] DAILY PROGRESS NOTE Page [phone] to reach a provider 24/02 Admit Date: [...] of this mass after consultation with other grassland conservationist experts and the decision was made by [...] area. The patient was transported to the [facility] in a critical but stable condition Assessment: [...] based on the results. Disposition: [facility]charge Location: [facility] Basic Mobility Raw Score: 24 PT: OT: PCP Mauro Berumen MD [phone] Evelyn Mckinnon MD 08/15/2024 10:42 AM Addendum [...] Rehab for the first time ever, at [facility] ([place], [place]) today, on Friday morning (08/13/2024, 10:00am) [...] me from the Cardiac Rehab Office at [facility] ([place], [place]) to the ER at [facility] ([place]) to get checked out and the [...] had my triple bypass heart surgery at [facility] on 06/14/2024, 8:48am with [facility] Cardiac Surgeon Dr. Bobby Loja, I should go to [facility] and see Dr. Loja again. I remember when I was at [facility] back in June last year (2023), and [...] s/p resection (2017, [facility], [place], [place]), insulin-dependent DM2 on aspart insulin 20 units SQ tid before meals, tresiba insulin 30 units SQ daily, metformin 1000mg PO bid, and empagliflozin 25mg PO daily, with HbA1c 7.1% (06/06/2024, 3:33am), CAD s/p acute OH #1 (09/2003, s/p stent x 1, [facility], [place], [place]). acute OH #2 (03/2018, s/p stent x 1, [place], [place]). acute OH #3 (01/2019, s/p stent x 1, [place]). acute OH #4 (06/03/24,s/p 3vCABG, [facility], [place], [place])(CT Surgeon Dr. Bobby Loja, 06/14/2024, 8:48am). Cf., troponin-T #1 208 ng/L (06/03/2024, 2:13am). Cf., troponin-T #2 218 ng/L (06/03/2024, 3:07am). Cf., troponin-T #3 254 ng/L (06/03/2024, 5:11am). Cf., troponin-T #4 284 ng/L (06/03/2024, 7:39am). Cf., troponin-T #5 289 ng/L (06/03/2024, 8:27am). Cf., EKG (06/03/2024, 1:45am): atrial-sensing, ventricle-pacing @ 63, AK 168, QTC 409 (by my review). Patient subsequently developed chronic systolic CHF with reduced LVEF 30-35% (as noted on 06/14/2024, 7:20am KAREN, [facility] CARDS Dr. Hosea Ardon), and chronic diastolic CHF, for which patient underwent AICD (06/2019, [facility], [place], [place]). Patient reports no paroxysmal nocturnal dyspnea, maintains a dry baseline weight of 210 pounds, and sleeps on a regular bed with 1 pillow all the time. Patient subsequently underwent left heart catheterization (06/02/2024, 12:42am, [facility] InterventionalCARDS Dr. Nuha Shen) which revealed: Hemodynamics: [...] 3.5 guiding catheter and a 3.5 Fr [facility] [facility] [place] 20 Mhz using Manual pullback. Imaging was [...] 3.5 guiding catheter and a 3.5 Fr [facility] [place] 20 Mhz using Manual pullback. Imaging was [...] be managed with medical therapy. (As per [facility] Interventional CARDS Dr. Nuha Shen). Patient subsequently underwent TTE (06/03/2024, 2:23am, [facility] CARDS fellow Dr. Sascah Silva) whichrevealed: Left Ventricle Left ventricle is [...] 6-14 large Aneurysmal 15-16 diffuse (As per [facility] CARDS fellow Dr. Sascha Silva). Patient subsequently underwent TTE (06/03/2024, 8:46am, [facility] CARDS Dr. Jonnie Jordan) which revealed: Left [...] elevated left ventricular filling pressure). (As per [facility] CARDS Dr. Jonnie Jordan). Patient subsequently underwent cardiac catheterization (06/13/2024, 9:15am, [facility] Interventional CARDS Dr. Nuha Shen), which revealed: [...] require modification of this regimen. (as per [facility] Interventional CARDS Dr. Nuha Shen). Patient subsequently underwent KAREN (06/14/2024, 7:20am, [facility] CARDS Dr. Hosea Ardon), which revealed: KAREN [...] of this mass after consultation with other grassland conservationist experts and the decision was made by surgeon to explore the mass. 8. No significant valvular disease. Patient subsequently underwent biopsy (06/14/2024, 9:53am) of unusual fibrinous mass at the orifice of the left atrial appendage (as noted on 06/14/2024, 7:20am, [facility] CARDS Dr. Hosea Ardon): A. Soft Tissue Mass, Mediastinal Mass, Excision: - Atrophic thymic tissue B. Heart, Atrial Appendage, Left, Excision: - Mild myocyte hypertrophy (as per [facility] Pathologist Dr. Sandra Salas). As noted above, patient underwent 3v CABG, excision of mediastinal tumor, and exploration / oversewof atrial appendage (06/14/2024, 8:48am, [facility] Cardiac Surgeon Dr. Bobby Loja). Patient now reports: I was at Cardiac Rehab for the first time ever, at [facility] ([place], [place]) today, on Friday morning (08/14/2024, 10:00am) [...] me from the Cardiac Rehab Office at [facility] ([place]) to the ER at [facility] ([place]) to get checked out and the [...] had my triple bypass heart surgery at [facility] 06/14/2024, 8:48am with [facility] Cardiac Surgeon Dr. Bobby Loja, I should go to [facility] and seeDr. Loja again. I remember when I was at [facility] back in June last year (2023), and [...] the patient on observation date 08/14/2024. In [facility] ER ([place]), patient was afebrile at 37.0 degrees Celsius, HR 80, RR 20, O2 sat 97% on room air, and BP 117/61 (08/13/2024, 11:13am). Exam was noted for a clear and non-tender chest. Labs in [facility] ER ([place], [place]) included: WBC 9.25, N69 L19 M [...] 314 ng/L (08/14/2024, 6:00am). Additional testing in [facility] ER ([place]) included: EKG (actual tracing not present in papers/documents transferred from [facility] ER ([place]): Workup in the ED showed an EKG with pacing without T wave or ST segment changes pointing to occlusive cardiac disease; noticeable T wave inversion in multiple leads infero-lateral leads as seen prior. (as per [facility] Viry Adele Temple, PARTS DEPARTMENT SUPERVISOR). Patient was subsequently diagnosed with the following conditions @ [facility] ER ([place], [place]) on 08/13/2024: R/O acute NSTEMI. Acute [...] 08/14/2024, 8:43am). Patient was subsequently transferred from [facility] ([place], [place]) to [facility]U bed #373-A on 08/14/2024 to undergo [...] performed by Bobby Loja MD [facility] MAIN OR PRO CABG, ARTERY-VEIN, TWO N/A 06/14/2024 @CABG, TWO VENOUS GRAFTS & ARTERIAL GRAFT (WRVU 7.93) [facility]OS[facility] W/VIDEO-ASST VEIN HARVEST, CABG N/A 06/14/2024 ENDOSCOPIC HARVEST VEIN(S) FOR CABG (WRVU 0.31) performed by Bobby Loja MD at [facility] MAIN OR PRO EXC MEDIASTINAL TUMOR N/A 06/14/2024 @EXCISION OF MEDIASTINAL TUMOR (WRVU 19.55) performed by Bobby Loja MD at [facility] MAIN OR PRO INSERT INTRA-AORTIC BALLOON ASST DEVICE PERCUTANEOUS N/A 06/13/2024 @INSERTION OF IABP,PERCUTANEOUS (WRVU 4.84) performed by Nuha Shen MD at [facility] CATH LABS PRO UNLISTED CARDIAC SURG PROCEDURE N/A 06/14/2024 EXPLORATION AND OVERSEW ATRIAL APPENDAGE (WRVU 5.94) [facility] Family History: Patient's father is at [...] 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 Patient is retired with physical disability after sustaining his third acute OH (01/2019, s/p stent x 1, [place], [place]), and now suffers from chronic systolic CHF with reduced LVEF 30- 35% (as noted on 06/14/2024, 7:20am KAREN, [facility] CARDS Dr. Hosea Ardon), and chronic diastolic CHF, for which patient underwent AICD (06/2019, [place], [place]). Patient was to his first for 4 years before divorce; together, they have a 45 years old son, who is alive and well. Patient is to his second for 20 years; together, they have no children living or . Patient lives at home with his second in their own home in [place], [place], and ambulates without assistance from cane, walker, or wheelchair. Patient can drive a car independently. Patient comes to [facility] HV[facility] bd #373-A as a direct ambulance transfer from [facility] ([place], [place]) today, 08/14/2024. REVIEW OF SYSTEMS: Review [...] EKG (08/14/2024, 11:57pm): atrial-sensing, ventricle-pacing @ 80, AK 188, QTC 449 (by my review). LABS: [...] s/p resection (2017, [facility], [place], [place]), insulin-dependent DM2 on aspart insulin 20 units SQ tid before meals, tresiba insulin 30 units SQ daily, metformin 1000mg PO bid, and empagliflozin 25mg PO daily, with HbA1c 7.1% (06/06/2024, 3:33am), CAD s/p acute OH #1 (09/2003, s/p stent x 1, [facility], [place], [place]). acute OH #2 (03/2018, s/p stent x 1, [place], [place]). acute OH #3 (01/2019, s/p stent x 1, [place] acute OH #4 (06/03/24,s/p 3vCABG, [facility], [place], [place])(CT Surgeon Dr. Bobby Loja, 06/14/2024, 8:48am). Cf., troponin-T #1 208 ng/L (06/03/2024, 2:13am). Cf., troponin-T #2 218 ng/L (06/03/2024, 3:07am). Cf., troponin-T #3 254 ng/L (06/03/2024, 5:11am). Cf., troponin-T #4 284 ng/L (06/03/2024, 7:39am). Cf., troponin-T #5 289 ng/L (06/03/2024, 8:27am). Cf., EKG (06/03/2024, 1:45am): atrial-sensing, ventricle-pacing @ 63, AK 168, QTC 409 (by my review). Patient subsequently developed chronic systolic CHF with reduced LVEF 30-35% (as noted on 06/14/2024, 7:20am KAREN, [facility] CARDS Dr. Hosea Ardon), and chronic diastolic CHF, for which patient underwent AICD (06/2019, [facility], [place], [place]). Patient reports no paroxysmal nocturnal dyspnea, maintains a dry baseline weight of 210 pounds, and sleeps on a regular bed with 1 pillow all the time. Patient subsequently underwent left heart catheterization (06/02/2024, 12:42am, [facility] InterventionalCARDS Dr. Nuha Shen) which revealed: Hemodynamics: [...] 3.5 guiding catheter and a 3.5 Fr [facility] [place] 20 Mhz using Manual pullback. Imaging was [...] 3.5 guiding catheter and a 3.5 Fr [facility] [place] 20 Mhz using Manual pullback. Imaging was [...] be managed with medical therapy. (As per [facility] Interventional CARDS Dr. Nuha Shen). Patient subsequently underwent TTE (06/03/2024, 2:23am, [facility] CARDS fellow Dr. Sascha Silva) whichrevealed: Left [...] 6-14 large Aneurysmal 15-16 diffuse (As per [facility] CARDS fellow Dr. Sascha Silva). Patient subsequently underwent TTE (06/03/2024, 8:46am, [facility] CARDS Dr. Jonnie Jordan) which revealed: Left [...] elevated left ventricular filling pressure). (As per [facility] CARDS Dr. Jonnie Jordan). Patient subsequently underwent cardiac catheterization (06/13/2024, 9:15am, [facility] Interventional CARDS Dr. Nuha Shen), which revealed: [...] require modification of this regimen. (as per [facility] Interventional CARDS Dr. Nuha Shen). Patient subsequently underwent KAREN (06/14/2024, 7:20am, [facility] CARDS Dr. Hosea Ardon), which revealed: KAREN [...] of this mass after consultation with other grassland conservationist experts and the decision was made by surgeon to explore the mass. 8. No significant valvular disease. Patient subsequently underwent biopsy (06/14/2024, 9:53am) of unusual fibrinous mass at the orifice of the left atrial appendage (as noted on 06/14/2024, 7:20am, [facility] CARDS Dr. Hosea Ardon): A. Soft Tissue Mass, Mediastinal Mass, Excision: - Atrophic thymic tissue B. Heart, Atrial Appendage, Left, Excision: - Mild myocyte hypertrophy (as per [facility] Pathologist Dr. Sandra Salas). As noted above, patient underwent 3v CABG, excision of mediastinal tumor, and exploration / oversewof atrial appendage (06/14/2024, 8:48am, [facility] Cardiac Surgeon Dr. Bobby Loja). Patient now reports: I was at Cardiac Rehab for the first time ever, at [facility] ([place], [place]) today, on Friday morning (08/14/2024, 10:00am) [...] me from the Cardiac Rehab Office at [facility] ([place], [place]) to the ER at [facility] ([place]) to get checked out and the [...] had my triple bypass heart surgery at [facility] 06/14/2024, 8:48am with [facility] Cardiac Surgeon Dr. Bobby Loja, I should go to [facility] and seeDr. Loja again. I remember when I was at [facility] back in June last year (2023), and the doctors tried cardiac cath, but they couldn't do it because they said my arteries were too calcified, and that I had to get the triple bypass heart surgery instead. I feel fine now. The lightheadedness and foggy vision never came back. Patient was subsequently diagnosed with the following conditions @ [facility] ER ([place], [place]) on 08/13/2024: 1. R/O acute NSTEMI. [...] 08/14/2024, 8:43am). Patient was subsequently transferred from [facility] [place] to undergo [...] PO x 1 dose (08/14/2024, 8:30am) in [facility] ER ([place]). Patient will not continue with home-scheduled metformin 1000mg PO bid [facility] the potential for metformin [...] scale q6, for any procedure(s) recommended by [facility] Cardiac Surgeon Dr. Bobby Loja. To address #4, patient was observed in [facility] ER. On arrival to [facility] bed #373-A, I ordered iron studies (e.g., iron, TIBC, and ferritin) in this colonoscopy-naive patient. Moreover, I encouraged patient to follow up with his PCP Dr. Mauro Berumen ([place], [place]) within 5 days of hospital discharge, [...] s/p resection (2017, [facility], [place], [place]), and who is now 69 years [...] Provider: Octaviano Quiñones MD Provider #: pager #[phone] 08/14/2024 documented in this encounter Miscellaneous Notes [...] N/A Patient is insured through: Primary Insurance: [employer] Payor: [email or web address] Secondary Insurance: N/A Prescription Coverage: Yes (managed medicare) This plan was formulated with input from patient and team. All are in agreement with plan. * Initial Assessments - Vargas Delong RN - 08/16/2024 1:10 PM EST Office of Care Management Initial Assessment Vargas Delong RN reviewed record and discussed patient with Care Team. Source of Information: Team, bedside nurse, medical record, and Patient CM/SUPERVISOR HAIRSPRING FABRICATION met with patient face to face. Introduced self/reviewed role; services accepted. Admitted From: Transfer from another hospital Location: [facility] Reason for Hospitalization: I went to cardiac [...] receiving care in [place] must abide by [place] law. The hierarchy [...] (i) The agent with financial power of vegetable inspector or a conservator appointed in accordance with [...] were you homeless or living in a snf (including now)?: No In the past 12 months has the JAYS, [employer], or water [employer] threatened to shut off services in your [...] comments) (CPAP) Home Address confirmed as: [address] [place] [place] [facility] [address] Social & Family Supports: All names listed [...] Specific Information: N/A Health/Prescription Coverage: Primary Insurance: [employer] (sent to [employer] for scanning into pt's chart) Payor: [employer] Secondary Insurance: N/A ONLY if patient has Medicare A&B - Does this patient have secondary insurance?: ([facility] managed medicare (sent to [employer] for scanning into chart)) ; Prescription Coverage: Yes (managed medicare) Are you financially able to cover the cost / copay of your medications?: Yes Preferred Pharmacy: [facility] - [place], [place] - [address] [address] Status: Patient is a : No Primary Care Provider confirmed: Mauro Berumen MD [phone] Patient/Caregiver Goals of Treatment: home when MR Potential Needs for Transition of Care: none Agency Referrals: pending clinical course Transportation: no concerns Transportation Anticipated: family or friend will provide Medications Anticipated: patient able to case picker, family/friend will case picker Concerns to be Addressed: no discharge needs [...] 2:00 PM EST Office Visit Cardiology at [address] [place] [place] [address] Moi Falcon MD [facility] [place] [address] documented as of this encounter Procedures Procedure [...] (ABNORMAL) POC, GLUCOSE (08/16/2024 12:03 PM EST) [facility] Glucometer, POC 263(H) 65 - 199 mg/dL 08/16/2024 12:03 PM EST [facility] Comment:Supplemental ranges: <140 mg/dL before meals <180 mg/dL all other times of the day. Blood CAPILLARY BLOOD / Unknown 08/16/2024 12:03 PM EST 08/16/2024 12:03 PM EST Evelyn Mckinnon MD POINT OF CARE TEST O RDERABLES Performing Organization Address [facility] [[email or web address]] de Phone Number [facility] [place] [address] * EKG 12 Lead (08/16/2024 8:44 AM EST) Ventricular rate 80 BPM MUSE SYSTEM Atrial Rate 80 BPM MUSE SYSTEM P-R Interval 180 ms MUSE SYSTEM QRS Duration 90 ms MUSE SYSTEM Q-T Interval 374 ms MUSE SYSTEM QTC Calculated (Bezet) 431 ms MUSE SYSTEM Calculated P Mina 63 degrees MUSE SYSTEM Calculated R Mina 22 degrees MUSE SYSTEM Calculated T Mina 129 degrees MUSE SYSTEM INTERPRETATION AV dual-paced rhythm Abnormal ECG When compared with ECG of 14-AUG-2024 23:57, No significant change was found Confirmed by MD JEAN, KRISS ([id number]) on 08/16/2024 9:37:14 AM MUSE SYSTEM 08/16/2024 8:44 AM EST 08/16/2024 9:37 AM EST Evelyn Mckinnon MD ECG ORDERABLES Performing Organization Address [facility] [[email or web address]] de Phone Number MUSE SYSTEM * POC, GLUCOSE (08/16/2024 8:20 AM EST) Glucometer, POC 164 65 - 199 mg/dL 08/16/2024 8:20 AM EST [facility] Comment:Supplemental ranges: <140 mg/dL before meals <180 mg/dL all other times of the day. Blood CAPILLARY BLOOD / Unknown 08/16/2024 8:20 AM EST 08/16/2024 8:20 AM EST Evelyn Mckinnon MD POINT OF CARE TEST O RDERAPIETER [facility] [place] [place] [address] * (ABNORMAL) CBC (with Diff) (08/16/2024 12:32 AM EST) White Blood Cell 8.55 4.00 - 9.50 x10(3)/mc L 08/16/2024 12:47 AM [facility] Red Blood Cell 4.17(L) 4.58 - 5.54 x10(6)/mc L 08/16/2024 12:47 AM [facility] Hemoglobin 12.3(L) 13.7 - 16.5 g/dL 08/16/2024 12:47 AM [facility] Hematocrit 37.9(L) 40.5 - 48.5 % 08/16/2024 12:47 AM [facility] Mean Cell Volume 90.9 82.9 - 93.1 fL 08/16/2024 12:47 AM [facility] Mean Cell Hemoglobin 29.5 27.5 - 32.1 pg 08/16/2024 12:47 AM [facility] Mean Cell Hemoglobin Concentration 32.5 32.0 - 35.7 g/dL 08/16/2024 12:47 AM [facility] Platelet 192 145 - 357 x10(3)/mc L 08/16/2024 12:47 AM [facility] Mean Platelet Volume 9.5 7.6 - 12.9 fL 08/16/2024 12:47 AM [facility] RDW Standard Deviation 44.7 36.0 - 45.0 fL 08/16/2024 12:47 AM [facility] RDW coefficient of variation 13.2 11.4 - 13.8 % 08/16/2024 12:47 AM [facility] NRBC% auto 0.0 % 08/16/2024 12:47 AM [facility] NRBC Absolute <0.01 <0.01 x10(3)/mc L 08/16/2024 12:47 AM [facility] Neutrophil % 53.8 % 08/16/2024 12:47 AM [facility] Neutrophil Absolute (ANC) - Automated 4.61 1.70 - 6.10 x10(3)/mc L 08/16/2024 12:47 AM [facility] Lymph % 30.1 % 08/16/2024 12:47 AM [facility] Lymph Absolute 2.57 0.90 - 3.20 x10(3)/mc L 08/16/2024 12:47 AM [facility] Monocyte % 10.2 % 08/16/2024 12:47 AM [facility] Monocyte Absolute 0.87 0.30 - 0.90 x10(3)/mc L 08/16/2024 12:47 AM [facility] Eos % 4.8 % 08/16/2024 12:47 AM [facility] Eos Absolute 0.41(H) 0.00 - 0.40 x10(3)/mc L 08/16/2024 12:47 AM [facility] Basophil % 0.7 % 08/16/2024 12:47 AM [facility] Baso Absolute 0.06 0.00 - 0.10 x10(3)/mc L 08/16/2024 12:47 AM [facility] Immature Gran % 0.4 % 12:47 AM [facility] Immature Gran Absolute <0.04 0.00 - 0.04 x10(3)/mc L 08/16/2024 12:47 AM [facility] Blood VENOUS BLOOD SPECIMEN / Unknown Venipuncture / Unknown 08/16/2024 12:32 AM EST 08/16/2024 12:41 AM EST Octaviano Quiñones MD HEMATOLOGY ORDERABLE S [facility] [place] [address] * Heparin (unfractionated) Level (08/16/2024 12:32 AM EST) Pathologist [facility] UF Heparin 0.32 IU/mL 08/16/2024 12:55 AM EST [facility] Comment: Heparin (anti-Xa) levels [...] EST Octaviano Quiñones MD HEMATOLOGY ORDERABLE S [facility] [place] [address] * Magnesium (08/16/2024 12:32 AM EST) Pathologist [facility] Magnesium 0.85 0.69 - 1.07 mMol/L 08/16/2024 1:12 AM EST [facility] Blood VENOUS BLOOD SPECIMEN / Unknown Venipuncture / Unknown 08/16/2024 12:32 AM EST 08/16/2024 12:41 AM EST Evelyn Mckinnon MD CHEMISTRY ORDERABLES [facility] [place] [address] * (ABNORMAL) Basic Metabolic Panel (08/16/2024 12:32 AM [facility]) Glucose 210(H) 65 - 199 mg/dL 08/16/2024 1:12 AM [facility] Comment:Glucose Concentratio n >=200 mg/dL plus symptoms is consistent with Diabetes Mellitus. Blood Urea Nitrogen 23(H) 10 - 20 mg/dL 08/16/2024 1:12 AM [facility] Creatinine 1.02 0.80 - 1.50 mg/dL 08/16/2024 1:12 AM [facility] Sodium 136 135 - 145 mMol/L 08/16/2024 1:12 AM [facility] Potassium 4.3 3.5 - 5.0 mMol/L 08/16/2024 1:12 AM [facility] Chloride 101 98 - 107 mMol/L 08/16/2024 1:12 AM [facility] Carbon Dioxide 25 22 - 31 mMol/L 08/16/2024 1:12 AM [facility] Anion Gap 10 5 - 15 mMol/L 08/16/2024 1:12 AM [facility] Calcium 8.9 8.5 - 10.5 mg/dL 08/16/2024 1:12 AM [facility] Est Glomerular Filtration Rate - Male 81 mL/min/1. 73 m?? 08/16/2024 1:12 AM [facility] Comment: This patient's estimated GFR [...] Mckinnon MD CHEMISTRY ORDERABLES Performing Organization Address [facility] Co de Phone Number [facility] [place] [address] * POC, GLUCOSE (08/15/2024 8:09 PM EST) Glucometer, POC 129 65 - 199 mg/dL 08/15/2024 8:10 PM EST [facility] Comment:Supplemental ranges: <140 mg/dL before meals <180 mg/dL all other times of the day. Blood CAPILLARY BLOOD / Unknown 08/15/2024 8:09 PM EST 08/15/2024 8:10 PM EST Evelyn Mckinnon MD POINT OF CARE TEST O RDERABLES Performing Organization Address [facility] [[email or web address]] de Phone Number [facility] [place] [address] * Heparin (unfractionated) Level (08/15/2024 7:06 PM EST) UF Heparin 0.31 IU/mL 08/15/2024 7:21 PM EST [facility] Comment: Heparin (anti-Xa) levels [...] MD HEMATOLOGY ORDERABLE S Performing Organization Address [facility] Co de Phone Number [facility] [place] [place] [address] * POC, GLUCOSE (08/15/2024 5:08 PM EST) Glucometer, POC 151 65 - 199 mg/dL 08/15/2024 5:08 PM EST [facility] Comment:Supplemental ranges: <140 mg/dL before meals <180 mg/dL all other times of the day. Blood CAPILLARY BLOOD / Unknown 08/15/2024 5:08 PM EST 08/15/2024 5:09 PM EST Evelyn Mckinnon MD POINT OF CARE TEST O NIKA Performing Organization Address [facility] Co de Phone Number [facility] [place] [place] [address] * POC, GLUCOSE (08/15/2024 3:29 PM EST) Glucometer, POC 168 65 - 199 mg/dL 08/16/2024 7:11 AM EST [facility] Comment:Supplemental ranges: <140 mg/dL before meals <180 mg/dL all other times of the day. Blood CAPILLARY BLOOD / Unknown 08/15/2024 3:29 PM EST 08/16/2024 7:11 AM EST Evelyn Mckinnon MD POINT OF CARE TEST O NIKA Performing Organization Address [facility] Co de Phone Number [facility] [place] [place] [address] * ECHO COMPLETE W CONTRAST (08/15/2024 12:57 PM EST) EF 31 HEARTLAB SYSTEM Anatomical Region Laterality Modality Cardiac Other 08/15/2024 12:0 0 PM EST Narrative 08/15/2024 1:42 PM EST [address] [place] [address] ? Echocardiogram Report Name: GEORGE MEHTA ?Study Date: 08/15/2024 12:00 PMBP: 118/72 mmHg : 1955 ? Height: 168 cm ? Account: [id number] Age: 69 yrs ? Weight: 93 kg Gender: Male ?BSA: 2.0 m2 Ordering Physician: OCTAVIANO QUIÑONES Referring Physician: ANA COLON Performed By: Sandra Worthy RDCS Reason For Study: Elevated troponin Exam Location: [facility]. Interpretation Summary 1. Left ventricular systolic [...] side images at end of report). Procedure Complete-[id number]. Image enhancement Definity was used for left [...] Note Jim Benites MD - 08/15/2024 [address] [place] [address] Echocardiogram Report Name: GEORGE MEHTA Study Date: 2:00 PMBP: 118/72 mmHg : 1955 Height: 168 cm Account: [id number] Age: 69 yrs Weight: 93 kg Gender: Male BSA: 2.0 m2 Ordering Physician: OCTAVIANO QUIÑONES Referring Physician: ANA COLON Performed By: Sandra Worthy RDCS Reason For Study: Elevated troponin Exam Location: [facility]. Interpretation Summary 1. Left ventricular systolic [...] side images at end of report). Procedure Complete-[id number]. Image enhancement Definity was used for left [...] POC, GLUCOSE (08/15/2024 12:48 PM EST) Pathologist [facility] Glucometer, POC 205(H) 65 - 199 mg/dL 08/15/2024 12:48 PM EST [facility] Comment:Supplemental ranges: <140 mg/dL before meals <180 mg/dL all other times of the day. Blood CAPILLARY BLOOD / Unknown 08/15/2024 12:48 PM EST 08/15/2024 12:48 PM EST Evelyn Mckinnon MD POINT OF CARE TEST O RDERABLES [facility] [place] [address] * Heparin (unfractionated) Level (08/15/2024 11:32 AM EST) [facility] UF Heparin 0.29 IU/mL 08/15/2024 11:48 AM EST [facility] Comment: Heparin (anti-Xa) levels [...] EST Octaviano Quiñones MD HEMATOLOGY ORDERABLE S [facility] [place] [address] * (ABNORMAL) POC, GLUCOSE (08/15/2024 11:15 AM EST) Glucometer, POC 253(H) 65 - 199 mg/dL 08/16/2024 7:11 AM EST [facility] Comment:Supplemental ranges: <140 mg/dL before meals <180 mg/dL all other times of the day. Blood CAPILLARY BLOOD / Unknown 08/15/2024 11:15 AM EST 08/16/2024 7:11 AM EST Evelyn Mckinnon MD POINT OF CARE TEST Abimael MAHER Performing Organization Address City/[facility]/ZIP Co de Phone Number [facility] [place] [place] [address] * POC, GLUCOSE (08/15/2024 8:01 AM EST) Glucometer, POC 191 65 - 199 mg/dL 08/15/2024 8:01 AM EST [facility] Comment:Supplemental ranges: <140 mg/dL before meals <180 mg/dL all other times of the day. Blood CAPILLARY BLOOD / Unknown 08/15/2024 8:01 AM EST 08/15/2024 8:01 AM EST Evelyn Mckinnon MD POINT OF CARE TEST O NIKA [facility] [place] [address] * (ABNORMAL) Basic Metabolic Panel (08/15/2024 5:00 AM EST) Glucose 184 65 - 199 mg/dL 08/15/2024 7:20 AM [facility] Comment:Glucose Concentratio n >=200 mg/dL plus symptoms is consistent with Diabetes Mellitus. Blood Urea Nitrogen 23(H) 10 - 20 mg/dL 08/15/2024 7:20 AM [facility] Creatinine 1.07 0.80 - 1.50 mg/dL 08/15/2024 7:20 AM [facility] Sodium 139 135 - 145 mMol/L 08/15/2024 7:20 AM [facility] Potassium 4.1 3.5 - 5.0 mMol/L 08/15/2024 7:20 AM [facility] Chloride 102 98 - 107 mMol/L 08/15/2024 7:20 AM [facility] Carbon Dioxide 23 22 - 31 mMol/L 08/15/2024 7:20 AM [facility] Anion Gap 14 5 - 15 mMol/L 08/15/2024 7:20 AM [facility] Calcium 9.0 8.5 - 10.5 mg/dL 08/15/2024 7:20 AM [facility] Est Glomerular Filtration Rate - Male 76 mL/min/1. 73 m?? 08/15/2024 7:20 AM [facility] Comment: This patient's estimated GFR [...] Ino MD CHEMISTRY ORDERABLES Performing Organization Address City/[facility]/ZIP Co de Phone Number [facility] [place] [place] [address] * (ABNORMAL) Troponin - Single (08/15/2024 5:00 AM EST) Troponin-T, High Sensitivity 27(H) <=22 ng/L 08/15/2024 5:33 AM EST [facility] Comment: This patient's troponin [...] troponin value can be found in the On [facility] Laboratory Test Catalog Troponin - [email or web address] Reference: Fourth [place] Definition of Myocardial Infarction. Journal of the [place] [employer] 2018;72:6576-1491 Blood VENOUS BLOOD SPECIMEN / Unknown Venipuncture / Unknown 08/15/2024 5:00 AM EST 08/15/2024 5:04 AM EST Octaviano Quiñones MD CHEMISTRY ORDERABLES [facility] [place] [address] * Heparin (unfractionated) Level (08/15/2024 4:59 AM EST) UF Heparin 0.29 IU/mL 08/15/2024 5:16 AM EST [facility] Comment: Heparin (anti-Xa) levels [...] EST Octaviano Quiñones MD HEMATOLOGY ORDERABLE S [facility] [place] [address] * Ferritin (08/15/2024 4:59 AM EST) Ferritin 70 31 - 409 ng/ml 08/15/2024 6:09 AM EST [facility] Blood VENOUS BLOOD SPECIMEN / Unknown Venipuncture / Unknown 08/15/2024 4:59 AM EST 08/15/2024 5:04 AM EST Octaviano Quiñones MD CHEMISTRY ORDERABLES [facility] [place] [address] * (ABNORMAL) CBC (with Diff) (08/15/2024 4:59 AM EST) White Blood Cell 7.12 4.00 - 9.50 x10(3)/mc L 08/15/2024 5:08 AM [facility] Red Blood Cell 4.37(L) 4.58 - 5.54 x10(6)/mc L 08/15/2024 5:08 AM [facility] Hemoglobin 12.9(L) 13.7 - 16.5 g/dL 08/15/2024 5:08 AM [facility] Hematocrit 40.2(L) 40.5 - 48.5 % 08/15/2024 5:08 AM [facility] Mean Cell Volume 92.0 82.9 - 93.1 fL 08/15/2024 5:08 AM [facility] Mean Cell Hemoglobin 29.5 27.5 - 32.1 pg 08/15/2024 5:08 AM [facility] Mean Cell Hemoglobin Concentration 32.1 32.0 - 35.7 g/dL 08/15/2024 5:08 AM [facility] Platelet 196 145 - 357 x10(3)/mc L 08/15/2024 5:08 AM [facility] Mean Platelet Volume 9.2 7.6 - 12.9 fL 08/15/2024 5:08 AM [facility] RDW Standard Deviation 45.7(H) 36.0 - 45.0 fL 08/15/2024 5:08 AM [facility] RDW coefficient of variation 13.4 11.4 - 13.8 % 08/15/2024 5:08 AM [facility] NRBC% auto 0.0 % 08/15/2024 5:08 AM [facility] NRBC Absolute <0.01 <0.01 x10(3)/mc L 08/15/2024 5:08 AM [facility] Neutrophil % 50.1 % 08/15/2024 5:08 AM [facility] Neutrophil Absolute (ANC) - Automated 3.56 1.70 - 6.10 x10(3)/mc L 08/15/2024 5:08 AM [facility] Lymph % 32.0 % 08/15/2024 5:08 AM [facility] Lymph Absolute 2.28 0.90 - 3.20 x10(3)/mc L 08/15/2024 5:08 AM [facility] Monocyte % 11.9 % 08/15/2024 5:08 AM [facility] Monocyte Absolute 0.85 0.30 - 0.90 x10(3)/mc L 08/15/2024 5:08 AM [facility] Eos % 4.6 % 08/15/2024 5:08 AM [facility] Eos Absolute 0.33 0.00 - 0.40 x10(3)/mc L 08/15/2024 5:08 AM [facility] Basophil % 1.0 % 08/15/2024 5:08 AM [facility] Baso Absolute 0.07 0.00 - 0.10 x10(3)/mc L 08/15/2024 5:08 AM [facility] Immature Gran % 0.4 % 5:08 AM [facility] Immature Gran Absolute <0.04 0.00 - 0.04 x10(3)/mc L 08/15/2024 5:08 AM [facility] Blood VENOUS BLOOD SPECIMEN / Unknown Venipuncture / Unknown 08/15/2024 4:59 AM EST 08/15/2024 5:04 AM EST Octaviano Quiñones MD HEMATOLOGY ORDERABLE S [facility] [place] [address] * EKG 12 Lead (08/14/2024 11:57 PM EST) Ventricular rate 80 BPM MUSE SYSTEM Atrial Rate 80 BPM MUSE SYSTEM P-R Interval 188 ms MUSE SYSTEM QRS Duration 98 ms MUSE SYSTEM Q-T Interval 390 ms MUSE SYSTEM QTC Calculated (Bezet) 449 ms MUSE SYSTEM Calculated P Mina 57 degrees MUSE SYSTEM Calculated R Mina 78 degrees MUSE SYSTEM Calculated T Mina -177 degrees MUSE SYSTEM INTERPRETATION AV dual-paced rhythm Abnormal ECG When compared with ECG of 14-JUN-2024 14:46, No significant change was found Confirmed by MD Nikki, Jonnie Godoy ([id number]) on 08/15/2024 12:30:01 PM MUSE SYSTEM 08/14/2024 11:5 7 PM EST 08/15/2024 12:30 PM EST Octaviano Quiñones MD ECG ORDERABLES Performing Organization Address City/[facility]/ZIP Co de Phone Number MUSE SYSTEM * (ABNORMAL) POC, GLUCOSE (08/14/2024 11:56 PM EST) Glucometer, POC 229(H) 65 - 199 mg/dL 08/14/2024 11:56 PM EST [facility] Comment:Supplemental ranges: <140 mg/dL before meals <180 mg/dL all other times of the day. Blood CAPILLARY BLOOD / Unknown 08/14/2024 11:56 PM EST 08/14/2024 11:56 PM EST Evelyn Mckinnon MD POINT OF CARE TEST O RDERABLES Performing Organization Address City/[facility]/ZIP Co de Phone Number [facility] [place] [place] [address] * (ABNORMAL) Iron and TIBC (08/14/2024 9:40 PM EST) Iron 62 45 - 160 mcg/dL 08/15/2024 2:18 AM EST [facility] TIBC 354 250 - 450 mcg/dL 08/15/2024 2:18 AM EST [facility] Iron Saturation 18(L) 20 - 50 % 2:18 AM EST [facility] Blood VENOUS BLOOD SPECIMEN / Unknown Venipuncture / Unknown 08/14/2024 9:40 PM EST 08/14/2024 9:45 PM EST Octaviano Quiñones MD CHEMISTRY ORDERABLES Performing Organization Address [facility]/ZIP Co de Phone Number [facility] [place] [address] * (ABNORMAL) Heparin (unfractionated) Level (08/14/2024 9:40 PM EST) UF Heparin 1.03(HHH) IU/mL 08/14/2024 10:04 PM EST [facility] Comment: Heparin (anti-Xa) levels [...] MD HEMATOLOGY ORDERABLE S Performing Organization Address [facility]/ZIP Co de Phone Number [facility] [place] [place] [address] * (ABNORMAL) Hemoglobin A1c (08/14/2024 9:40 PM EST) Hemoglobin A1c 6.9(H) 4.3 - 5.6 % 08/14/2024 10:06 PM EST [facility] Comment: Per ADA guidelines, [...] red blood cell turnover may not be tax compliance representative of glycemic control. Reference Interval: 4.3 - 5.6% 5.7 - 6.4%: Consistent with prediabetes >=6.5%: Consistent with diagnosis of diabetes mellitus Estimated Average Glucose 151 mg/dL 08/14/2024 10:06 PM [facility] Blood VENOUS BLOOD SPECIMEN / Unknown Venipuncture / Unknown 08/14/2024 9:40 PM EST 08/14/2024 9:46 PM EST Octaviano Quiñones MD CHEMISTRY ORDERABLES Performing Organization Address City/State/[facility] Co de Phone Number [facility] [place] [address] * (ABNORMAL) CBC (with Diff) (08/14/2024 9:40 PM EST) White Blood Cell 9.52(H) 4.00 - 9.50 x10(3)/mc L 08/14/2024 9:51 PM [facility] Red Blood Cell 4.74 4.58 - 5.54 x10(6)/mc L 08/14/2024 9:51 PM [facility] Hemoglobin 13.7 13.7 - 16.5 g/dL 08/14/2024 9:51 PM [facility] Hematocrit 44.0 40.5 - 48.5 % 08/14/2024 9:51 PM [facility] Mean Cell Volume 92.8 82.9 - 93.1 fL 08/14/2024 9:51 PM [facility] Mean Cell Hemoglobin 28.9 27.5 - 32.1 pg 08/14/2024 9:51 PM [facility] Mean Cell Hemoglobin Concentration 31.1(L) 32.0 - 35.7 g/dL 08/14/2024 9:51 PM [facility] Platelet 235 145 - 357 x10(3)/mc L 08/14/2024 9:51 PM [facility] Mean Platelet Volume 9.3 7.6 - 12.9 fL 08/14/2024 9:51 PM [facility] RDW Standard Deviation 45.2(H) 36.0 - 45.0 fL 08/14/2024 9:51 PM [facility] RDW coefficient of variation 13.3 11.4 - 13.8 % 08/14/2024 9:51 PM [facility] NRBC% auto 0.0 % 08/14/2024 9:51 PM [facility] NRBC Absolute <0.01 <0.01 x10(3)/mc L 08/14/2024 9:51 PM [facility] Neutrophil % 57.7 % 08/14/2024 9:51 PM [facility] Neutrophil Absolute (ANC) - Automated 5.50 1.70 - 6.10 x10(3)/mc L 08/14/2024 9:51 PM [facility] Lymph % 28.7 % 08/14/2024 9:51 PM [facility] Lymph Absolute 2.73 0.90 - 3.20 x10(3)/mc L 08/14/2024 9:51 PM [facility] Monocyte % 8.5 % 08/14/2024 9:51 PM [facility] Monocyte Absolute 0.81 0.30 - 0.90 x10(3)/mc L 08/14/2024 9:51 PM [facility] Eos % 3.4 % 08/14/2024 9:51 PM [facility] Eos Absolute 0.32 0.00 - 0.40 x10(3)/mc L 08/14/2024 9:51 PM [facility] Basophil % 1.2 % 08/14/2024 9:51 PM [facility] Baso Absolute 0.11(H) 0.00 - 0.10 x10(3)/mc L 08/14/2024 9:51 PM EST [facility] Immature Gran % 0.5 % 9:51 PM EST [facility] Immature Gran Absolute 0.05(H) 0.00 - 0.04 x10(3)/mc L 08/14/2024 9:51 PM EST [facility] Blood VENOUS BLOOD SPECIMEN / Unknown Venipuncture / Unknown 08/14/2024 9:40 PM EST 08/14/2024 9:45 PM EST Octaviano Quiñones MD HEMATOLOGY ORDERABLE S [facility] [place] [address] * (ABNORMAL) Troponin - Single (08/14/2024 9:40 PM EST) Troponin-T, High Sensitivity 28(H) <=22 ng/L 08/14/2024 10:14 PM EST [facility] Comment: This patient's troponin [...] troponin value can be found in the [facility] Test Catalog Troponin - https://[email or web address].org/catalogs/565/[email or web address]/[email or web address] Reference: Fourth [place] Definition of Myocardial Infarction. Journal of the [place] [employer] 2018;72:7975-2565 Blood VENOUS BLOOD SPECIMEN / Unknown Venipuncture / Unknown 08/14/2024 9:40 PM EST 08/14/2024 9:45 PM EST Octaviano Quiñones [place] [address] documented in this encounter Visit Diagnoses Diagnosis [...] Patient/family refused)1227 (Given - Provider: Mary Lou Lnae RN) insulin lispro (HumaLOG;Admelog) (100 unit/mL) subcutaneous [...] Routine documented in this encounter Care Teams Photo Optics Technician Relationship Specialty Start Date End Date Mauro Berumen MD [address] [place] [address] PCP - General Family Medicine 06/02/24 documented as of this encounter
--- OUTSIDE RECORDS SUMMARY | 2024-08-20 10:57 | XMS_ITS | Encounter Summary ---
Author Organization [facility] Address [facility] [place] [address] Care Team Providers Care Test Engine Evaluator Name Role Phone Mauro Berumen MD Primary Care Provider [phone] Encounter Details Date Type Department Care Team (Latest Contact Info) Description 07/20/2024 Travel Social History Tobacco Use Types Packs/Day Years Used Date Smoking Tobacco: Every Day Cigarettes Smokeless Tobacco: Never [facility] Utilities Answer Date Recorded In the past [...] a group home (including now)? No 06/03/2024 IPV Inpatient [...] 2:00 PM EST Office Visit Cardiology at [address] [phone] Moi Falcon MD [facility] [place] [address] documented as of this encounter Visit Diagnoses Not on filedocumented in this encounter Care Teams Test Engine Evaluator Relationship Specialty Start Date End Date Mauro Berumen MD [address] [place] [id number] PCP - General Family Medicine 06/02/24 documented as of this encounter
--- OUTSIDE RECORDS SUMMARY | 2024-08-20 10:59 | XMS_ITS | Encounter Summary ---
Author Organization [facility] Address [facility] [place] [address] Care Team Providers Care Entry Manager Name Role Phone Mauro Berumen MD Primary Care Provider [phone] Encounter Details Date Type Department Care Team (Latest Contact Info) Description 06/15/2024 Unscheduled Encounter Cardiology at [address] [place] [id number] Ross Corbin PA [facility] [place] [address] Cardiac resynchronization therapy defibrillator (DYNAMIC ETCHING PROCESSOR-D) in place [Z95.810] Social History Tobacco Use Types Packs/Day Years Used Date Smoking Tobacco: Every Day Cigarettes Smokeless Tobacco: Never [facility] Utilities Answer Date Recorded [...] PM EST Cardiac Device Interrogation Arturo Mehta [id number] 06/15/2024 History: Arturo Mehta is a 69 year old male with a PMH significant for HTN, HLD, DM2, current TUD (abstinent since admission), ASCVD with multiple prior [place] and PCIs, 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 Today, EP was asked to reprogram his DYNAMIC ETCHING PROCESSOR-D device for the procedure. Vitals: Last Set of Vitals and range of vitals over past 24 hours: Range last 24 hrs Temperature Temp: [34.9 ??C (94.8 ??F)-37.6 ??C (99.7 ??F)] Heart Rate Heart Rate: [80-107] Blood Pressure BP: (115)/(65) Respiratory Rate Resp: [11-24] SpO2 SpO2: [92 %-100 %] Device Interrogation: Data Generator: Medtronic Amplia MRI Quad DYNAMIC ETCHING PROCESSOR-D [id number] / [id number] - Left-sided implant; 06/16/19 RA Lead: Medtronic [id number] CapSureFix Novus [id number]; 06/16/19 RV Lead: Medtronic [id number] / [id number]; 06/16/19 LV Lead: Medtronic [id number] Attain Performa MRI / [id number]; 06/16/19 Alerts VF Detection OFF, 3+ VF or 3+ FVT Rx Off. Diagnostics Pacing Mode: DDD @ 80/130 bpm Presenting EGMs: BV Underlying Rhythm: Sinus tachycardia ~100 bpm Atrial Pacin.7% Ventricular Pacin.6% DYNAMIC ETCHING PROCESSOR Pacin% Battery and Leads Voltage: 2.93 V [...] - Contact the device clinic at pager [phone] for any further programming adjustments. Ross Corbin PA-C, PhD 06/15/2024 Pager: [phone] documented in this encounter Plan of Treatment Upcoming Encounters Date Type Department Care Team (Late st Contact Info) Description 09/29/2024 2:00 PM EST Office Visit Cardiology at [address] [phone] Moi Falcon MD [facility] [place] [address] documented as of this encounter Visit Diagnoses Diagnosis Cardiac resynchronization therapy defibrillator (DYNAMIC ETCHING PROCESSOR-D) in place [Z95.810] documented in this encounter Care Teams Entry Manager Relationship Specialty Start Date End Date Mauro Berumen MD [address] [place] [address] PCP - General Family Medicine 06/02/24 documented as of this encounter
--- OUTSIDE RECORDS SUMMARY | 2024-08-20 10:59 | XMS_ITS | Encounter Summary ---
Author Organization [facility] Address [facility] [place] [address] Care Team Providers Care Anvilsmith Name Role Phone Mauro Berumen MD Primary Care Provider [phone] Reason for Referral * Consultation (Routine) - Authorized Specialty Diagnoses / Procedures Referred By Contac t Referred To Contact Cardiology Diagnoses S/P CABG x 3 Bobby Loja MD [facility] [place] [address] Cardiac Rehab, [address] [place] [address] Referral ID Status Reason Start Date Expiration Date Visits Requested Visits Authorized [id number] Authorized Consult, Test & Treat 06/21/2024 12/18/2024 36 36 * Home Health Care (Routine) - Authorized Specialty Diagnoses / Procedures Referred By Contac t Referred To Contact Diagnoses S/P CABG x 3 Bobby Loja MD [facility] [place] [address] Referral ID Status Reason Start Date Expiration Date Visits Requested Visits Authorized [id number] Authorized Consult, Test & Treat 06/21/2024 12/18/2024 999 999 Reason for Visit * Auth/Cert Specialty Diagnoses / Procedures Referred By Contac t Referred To Contact Diagnoses STEMI (ST elevation myocardial infarction) STEMI Procedures CARDIAC CATHETERIZATION EMERGENCY Delroy Monterroso MD [facility] [address] [facility] Referral ID Status Reason Start Date Expiration Date Visits Re quested Visits Authorized [id number] 1 1 Encounter Details Date Type Department Care Team (Late st Contact Info) Description 06/02/2024 11:09 PM EDT - 06/21/2024 1:07 PM EST Hospital Encounter Heart and Vascular Unit Level 4 [place] [address] Nuha Shen MD [facility] [address] Delroy Fofana MD [facility] [address] Melida Valdes MD [facility] [address] Ethel Carrillo MD [facility] [place] [address] Haja Byrnes MD [facility] DR [place] [address] Bobby Loja MD [facility] [place] [address] ST elevation myocardial infarction (STEMI), unspecified artery; Coronary artery disease involving council coronary artery of council heart without angina pectoris; S/P CABG x 3 Discharge Disposition: Home with VNA Social History Tobacco Use Types Packs/Day Years Used Date Smoking Tobacco: Every Day Cigarettes Smokeless Tobacco: Never Tobacco Cessation:Ready to Q uit: No; Counseling Given: Yes C Utilities Answer Date Recorded In the past 12 months has Behind the [employer], [employer], oil, or water [employer] threatened to shut off services in your [...] any time in the past 12 m the rehabilitation institute, were you homeless or living in [...] this encounter Discharge Summaries * Keila Hanley, DRAMATIC CRITIC - 06/21/2024 8:31 AM EST Inpatient - Discharge Summary Patient Name: George Mehta Patient Age: 69 y.o. Birthdate: 1955 Language: Peruvian Race: Choose not to Disclose Ethnicity: Not nor Admit Date: 06/02/2024 Discharge Date: 06/21/2024 Attending Physician: Bobby Loja MD Follow-up Recommendations for Providers: Please continue routine management of cardiovascular risk factors including blood pressure, lipids,glucose, etc. Please note any changes to medications. Patient to follow up with PCP, Mauro Berumen MD, in 1-2 weeks. Patient to follow up with Computing Architect, Kristen Cardenas in 2-3 weeks. Patient to follow up with Cardiac Surgeon, Dr. Bobby Loja, in 4 wks. Inpatient Provider Contact Information: [facility] Section of Cardiac Surgery [facility] [address] FAX [phone] Discharge Diagnoses (Hospital Problems) Primary Diagnoses: STEMI [...] (WRVU 33.75) performed by Bobby Loja MD [facility] OR PRO CABG, ARTERY-VEIN, TWO N/A 06/14/2024 @CABG, TWO VENOUS GRAFTS & ARTERIAL GRAFT (WRVU 7.93) performed by Bobby Loja MD at [facility] OR PRO ENDOSCOPY W/VIDEO-ASST VEIN HARVEST, CABG N/A 06/14/2024 ENDOSCOPIC HARVEST VEIN(S) FOR CABG (WRVU 0.31) performed by Bobby Loja MD at [facility] MAIN OR PRO EXC MEDIASTINAL TUMOR N/A 06/14/2024 @EXCISION OF MEDIASTINAL TUMOR (WRVU 19.55) performed by Bobby Loja MD at [facility] MA[facility] OR PRO INSERT INTRA-AORTIC BALLOON ASST DEVICE PERCUTANEOUS N/A 06/13/2024 @INSERTION OF IABP,PERCUTANEOUS (WRVU 4.84) performed by Nuha Shen MD at [facility] CATH LABS PRO UNLISTED CARDIAC SURG PROCEDURE N/A 06/14/2024 EXPLORATION AND OVERSEW ATRIAL APPENDAGE (WRVU 5.94) performed by Bobby Loja MD at [facility] Prior To Admission Medications Medications [...] y.o. male with a PMHx of previous MT s/p PCI x3, ICM/HFrEF (LVEF 30%) s/p ICD, DMII, HTN, HLD, remote melanoma, and smoker who presented to [facility] last night via EMS after developing acute, severe chest pain while watching TV. Patient was ruled in for STEMI, given TNK, ASA, plavix, heparin gtt, and sent to [facility] for coronary angiography. LHC demonstrated severely calcified left coronary system with notable LCx 75/80% lesions and CAN CLEANER OM1 with ISR with collateral retrograde filling, [...] Hospital Course: George Mehta was admitted to [facility] on 06/[facility]/2024 via the CardiologyService with an anterior STEMI after receiving lytics at OSH. He was brought to the label printing machinist which showed severely calcified left coronary system with notable LCx 75/80% lesions and CAN CLEANER OM1 with ISR with collateral retrograde filling, [...] 2 tablespoons of dried fruit. Milk and zz-jaxlr-wutte yogurt have 15 grams of carbs in a serving. A serving is 1 cup of milk or 3/4 cup (6 oz) of ir-vcsie-sfrjv yogurt. Starchy vegetables have 15 grams of carbs in a serving. A serving is ?? cup of mashed potatoes or sweet potato; 1 cup winter squash; ?? of a small baked potato; ?? cup of cooked beans; or ?? cup cooked corn or green peas. Learn how much carbs to eat each day and at each meal. A dietitian or certified nutritionist can teach you how to keep track [...] Bobby Loja and/or the Cardiac Surgery Physician Airworthiness Safety Inspector Team may be reached at . Weight: [...] until after your return appointment with Dr. Bboby Loja. You may use a [place] Track or treadmill but avoid any pulling [...] should resume a low fat, low cholesterol, [place] Heart Association Diet/Diabetic diet. Driving: No driving [...] while being managed by your PCP and/or Computing Architect. For future medication refills, please refer to your PCP and/or Computing Architect after your discharge from our service. Thank you REMOVE CHEST TUBE SUTURES ON OR AFTER 06/24/2024 Home oxygen therapy: N/A Follow up appointments: You should follow up with your PCP, Mauro Berumen MD, in 1-2 weeks. You should follow up with your Computing Architect, Dr CARDENAS. You have an appointment with [...] Complete By Expires Referral to Cardiac Rehab [IYL721 Custom] As directed Process Instructions: If no [...] Home Health. [address] [facility] [address] (home) Date of : 1955 Inpatient DOCUMENTATION FOR VNA SERVICES (INCLUDING THOSE PATIENTS WITH MEDICARE COVERAGE REQUIRINGHOME VNA SERVICES AND/OR HOSPICE SERVICES) PATIENT'S LOCATION: George Mehta [address] [facility] [address] (home) Telephone Information: Small Wind Energy Installer's Name: self In discussion with the attending physician, it is certified that this patient is under their care and that they, or a Nurse Practitioner, or Physician Airworthiness Safety Inspector who is working directly with them, hada [...] for services as follows: HOME HEALTH AGENCY: [facility] [address] [address] RN orders: Cardiopulmonary assessment, incisional assessment, assess [...] issues please call the Cardiology Office at [phone] FOR MEDICARE ONLY: (please delete this section [...] care: As above. Signed: KEILA HANLEY APRN [facility] Section of Cardiac Surgery [facility] [address] FAX [phone] Date: 06/21/2024 CC: MD Antonino Tinajero Joshua R, PA [address] [place] [address] [place] [address] documented in this encounter Discharge Instructions * [...] 2 tablespoons of dried fruit. Milk and ms-nrxnb-krqtk yogurt have 15 grams of carbs in a serving. A serving is 1 cup of milk or 3/4 cup (6 oz) of ia-ixyjv-yhbzo yogurt. Starchy vegetables have 15 grams of carbs in a serving. A serving is ?? cup of mashed potatoes or sweet potato; 1 cup winter squash; ?? of a small baked potato; ?? cup of cooked beans; or ?? cup cooked corn or green peas. Learn how much carbs to eat each day and at each meal. A dietitian or certified nutritionist can teach you how to keep track [...] Bobby Loja and/or the Cardiac Surgery Physician Airworthiness Safety Inspector Team may be reached at . Weight: [...] Dr. Bobby Loja. You may use a [place] Track or treadmill but avoid any pulling [...] should resume a low fat, low cholesterol, [place] Heart Association Diet/Diabetic diet. Driving: No driving [...] while being managed by your PCP and/or Computing Architect. For future medication refills, please refer to your PCP and/or Computing Architect after your discharge from our service. Thank you REMOVE CHEST TUBE SUTURES ON OR AFTER 06/24/2024 Home oxygen therapy: N/A Follow up appointments: You should follow up with your PCP, Mauro Berumen MD, in 1-2 weeks. You should follow up with your Computing Architect, Dr CARDENAS. You have an appointment with [...] of your patient's venous access was performed [facility] theVascular Access Service. The following tasks were [...] of your patient's venous access was performed [facility] theVascular Access Service. The following tasks were [...] MARIALUISA clipping. PMH of chronic HFrEF s/p LEACH TANK TENDER/ICD, IDDM2, HTN, HLD, remote melanoma, active smoker. [...] 2 tablespoons of dried fruit. Milk and or-myyud-vmvyy yogurt have 15 grams of carbs in a serving. A serving is 1 cup of milk or 3/4 cup (6 oz) of zv-vkerq-ptonz yogurt. Starchy vegetables have 15 grams of carbs in a serving. A serving is ?? cup of mashed potatoes or sweet potato; 1 cup winter squash; ?? of a small baked potato; ?? cup of cooked beans; or ?? cup cooked corn or green peas. Learn how much carbs to eat each day and at each meal. A dietitian or certified nutritionist can teach you how to keep track [...] cheese, and peanut butter. Alejandra Baumann APRN [facility] Endocrinology Diabetes Management Pager [phone] Weekends please page [phone] * Eric Packer PA - 06/20/2024 7:44 AM EST Cardiac Surgery Progress Note George Mehta is a 69 y.o. male with a history of CAD s/p multiple PCI who presented with an anterior STEMI and was given lytics. Cath showed MV CAD without culprit vessel. He is now 6 Days Post-OpCABGx3 and MARIALUISA clipping. PMH of chronic HFrEF s/p LEACH TANK TENDER/ICD, IDDM2, HTN, HLD, remote melanoma, active smoker. [...] Pt is followed by heart failure industrial specialist at [facility] #IDDM2 DM team following Lantus, SSI Carb controlled diet #Active smoker Duoneb prn Dispo: Floor, full code, home when ready Discussed with attending surgeon on rounds this morning. 06/20/2024 Between the hours of 1800 - 0600 and on the weekends please page [phone]. * Alejandra Baumann, DRAMATIC CRITIC - 06/20/2024 7:21 AM EST Follow Up Diabetes Consult Patient Interview Blood glucose values and insulin use reviewed. animal caretaker supervisor BG to 59 despite decrease in [...] MARIALUISA clipping. PMH of chronic HFrEF s/p LEACH TANK TENDER/ICD, IDDM2, HTN, HLD, remote melanoma, active smoker. animal caretaker supervisor BG to 59 despite decrease in [...] based on ISF 20 Alejandra Baumann APRN [facility] Endocrinology Diabetes Management Pager [phone] Weekends please page [phone] Insulin Discharge Instructions Preliminary Diabetes Discharge Instructions [...] 2 tablespoons of dried fruit. Milk and xd-eitaf-osqxk yogurt have 15 grams of carbs in a serving. A serving is 1 cup of milk or 3/4 cup (6 oz) of fi-yggos-xgjpr yogurt. Starchy vegetables have 15 grams of carbs in a serving. A serving is ?? cup of mashed potatoes or sweet potato; 1 cup winter squash; ?? of a small baked potato; ?? cup of cooked beans; or ?? cup cooked corn or green peas. Learn how much carbs to eat each day and at each meal. A dietitian or certified nutritionist can teach you how to keep track [...] MARIALUISA clipping. PMH of chronic HFrEF s/p LEACH TANK TENDER/ICD, IDDM2, HTN, HLD, remote melanoma, active smoker. [...] Pt is followed by heart failure industrial specialist at [facility] Tx to floor #IDDM2 DM team following pre-op Lantus, SSI Carb controlled diet #Active smoker Duoneb prn Dispo: Floor status, full code Discussed with attending surgeon on rounds this morning. Jeffy Hood MD 06/19/2024 Between the hours of 1800 - 0600 and on the weekends please page [phone]. * Alejandra Baumann, JOSÉ ANTONIO - 06/19/2024 7:09 AM EST Follow Up Diabetes Consult Patient Interview Blood glucose values and insulin use reviewed. Jardiance added back yesterday, progress worker low BGto 51. Glargine reduced to 45 [...] MARIALUISA clipping. PMH of chronic HFrEF s/p LEACH TANK TENDER/ICD, IDDM2, HTN, HLD, remote melanoma, active smoker. Jardiance added back yesterday. animal caretaker supervisor low BG to 51. Glargine reduced [...] 2 tablespoons of dried fruit. Milk and iv-krtjr-bfjrl yogurt have 15 grams of carbs in a serving. A serving is 1 cup of milk or 3/4 cup (6 oz) of rq-lwvbb-egjep yogurt. Starchy vegetables have 15 grams of carbs in a serving. A serving is ?? cup of mashed potatoes or sweet potato; 1 cup winter squash; ?? of a small baked potato; ?? cup of cooked beans; or ?? cup cooked corn or green peas. Learn how much carbs to eat each day and at each meal. A dietitian or certified nutritionist can teach you how to keep track [...] cheese, and peanut butter. Alejandra Baumann APRN [facility] Endocrinology Diabetes Management Pager [phone] Weekends please page [phone] Hilda Almazan PTA - 06/18/2024 9:19 AM EST Physical Therapy Note 2 Patient profile: George Mehta is a 69 y.o. male with a history of CAD s/p multiple PCI who presented with an anterior STEMI and was given lytics. Cath showed MV CAD without culprit vessel. He is now 1 Day Post-Op CABGx3 and MARIALUISA clipping. PMH of chronic HFrEF s/p LEACH TANK TENDER/ICD, IDDM2, HTN, HLD, remote melanoma, active smoker. Interval History: Per last cardiac surgery note on 06/18/2024 Cr improved 1.4 on lasix 40 iv bid -1.5L, made 2.5L urine Coreg, entresto restarted Floor status Social History: Pt lives with his in a 1 level apartment with no steps to enter. 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 He sleeps in a recliner at baseline. Precautions/Special Considerations: Sternal precautions, PIV, at risk to fall, PPM Mobility and Positioning Recommendations: Pt to utilize no AD, supervision for ambulation and transfers w/ air liaison and special staff as able. Please encourage up to [...] least restrictive device Time IN / OUT: 2283-3812 Total Time: 11 minutes; TEF 1 Hilda Resendez PTA Pager: [phone] Physical Therapy Inpatient Rehabilitation Department * Keila [...] MARIALUISA clipping. PMH of chronic HFrEF s/p LEACH TANK TENDER/ICD, IDDM2, HTN, HLD, remote melanoma, active smoker. [...] Pt is followed by heart failure industrial specialist at [facility], will get name for f/up appt Tx to floor #IDDM2 DM team following pre-op Lantus, SSI Carb controlled diet ? Restarting jardiance #Active smoker Duoneb prn Dispo: [facility], Full code, tx to floor Discussed with attending surgeon on rounds this morning. KEILA HANLEY APRN 06/18/2024 Between the hours of 1800 - 0600 and on the weekends please page [phone]. * Alejandra Baumann APRN - 06/17/2024 3:29 [...] MARIALUISA clipping. PMH of chronic HFrEF s/p LEACH TANK TENDER/ICD, IDDM2, HTN, HLD, remote melanoma, active smoker. [...] based on ISF 20 Alejandra Baumann APRN [facility] Endocrinology Diabetes Management Pager [phone] Weekends please page [phone] 35 minutes were spent over the course [...] MARIALUISA clipping. PMH of chronic HFrEF s/p LEACH TANK TENDER/ICD, IDDM2, HTN, HLD, remote melanoma, active smoker. [...] 0600 and on the weekends please page [phone]. * Raymond Carlton MD - 06/16/2024 1:11 PM EST CARDIAC CRITICAL CARE ATTENDING STAFF PROGRESS NOTE Patient seen and examined. George Mehta is a 69 y.o. male with: Active Hospital Problems Diagnosis STEMI (ST elevation myocardial infarction) Cardiac resynchronization therapy defibrillator (LEACH TANK TENDER-D) - Medtronic Amplia Cardiomyopathy, ischemic Acute on chronic heart failure with reduced ejection fraction (HFrEF, <= 40%) Coronary artery disease involving council coronary artery of council heart without angina pectoris Type 2 diabetes [...] provided Patient screened for f/u and commercial lines underwriter met pt at bedside. Pt states [...] unless consulted in the interim. RICHA Simmons Glue Clamp Operator * Octaviano Horvath PA - 06/16/2024 8:07 AM EST Cardiac Surgery Progress Note George Mehta is a 69 y.o. male with a history of CAD s/p multiple PCI who presented with an anterior STEMI and was given lytics. Cath showed MV CAD without culprit vessel. He is now 2 Days Post-OpCABGx3 and MARIALUISA clipping. PMH of chronic HFrEF s/p LEACH TANK TENDER/ICD, IDDM2, HTN, HLD, remote melanoma, active smoker. [...] 0600 and on the weekends please page [phone]. * Jono Fernandez, PT - 06/15/2024 4:09 PM EST Physical Therapy Evaluation Patient profile: George Mehta is a 69 y.o. male with a history of CAD s/p multiple PCI who presented with an anterior STEMI and was given lytics. Cath showed MV CAD without culprit vessel. He is now 1 Day Post-Op CABGx3 and MARIALUISA clipping. PMH of chronic HFrEF s/p LEACH TANK TENDER/ICD, IDDM2, HTN, HLD, remote melanoma, active smoker. 24h Events: From OR on Dobutamine IABP removed Bedrest ended ~2100, sedation weaned Extubated ~0200 Dobutamine weaned to 1 this morning, CI 2.6, shut off and repeat CI 2.4 Social History: Pt lives with his in a 1 level apartment with no steps to enter. 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 He [...] Signs: BP: 124/64 seated; 122/57 with amb; aila SpO2: 92 % on 2L HR: 103 [...] outlined inthis evaluation. JONO FERNANDEZ, PT Pager: [phone] Physical Therapy Inpatient Rehabilitation Department Time IN / OUT: 5379-3788 Total Time: 33 (eval) minutes * Alejandra Baumann APRN - 06/15/2024 11:39 AM EST Follow Up Diabetes Consult Patient Interview Blood glucose values and insulin use reviewed. Pt remains on an insulin drip today following [id number] MARIALUISA clipping. George continues to complain of [...] MARIALUISA clipping. PMH of chronic HFrEF s/p LEACH TANK TENDER/ICD, IDDM2, HTN, HLD, remote melanoma, active smoker. [...] based on ISF 20 Alejandra Baumann APRN [facility] Endocrinology Diabetes Management Pager [phone] Weekends please page [phone] 50 minutes were spent over the course [...] elevation myocardial infarction) Cardiac resynchronization therapy defibrillator (LEACH TANK TENDER-D) - Medtronic Amplia Cardiomyopathy, ischemic Acute on chronic heart failure with reduced ejection fraction (HFrEF, <= 40%) Coronary artery disease involving council coronary artery of council heart without angina pectoris Type 2 diabetes [...] with h/o DM, CAD with prior PCI, LEACH TANK TENDER-D who presented with crushing chest pain, found [...] MARIALUISA clipping. PMH of chronic HFrEF s/p LEACH TANK TENDER/ICD, IDDM2, HTN, HLD, remote melanoma, active smoker. [...] sternotomy dressing CDI, saphenectomy dressing CDi Tubes/Lines/Drains: Somers, RIJ, A-line, Mediastinal marcos and bilateral pleural [...] 0600 and on the weekends please page [phone]. * Yoli Donaldson, BALANCE STAFF INSPECTOR - 06/15/2024 5:35 AM EST AMV Protocol: [...] with h/o DM, CAD with prior PCI, LEACH TANK TENDER-D who presented with crushing chest pain, found [...] with h/o DM, CAD with prior PCI, LEACH TANK TENDER-D who presented with crushing chest pain, found [...] 0600 and on the weekends please page [phone]. * Chloé Cortez - 06/14/2024 9:36 AM [...] unless consulted in the interim. Chloé Cortez Rn Enterostomal * Jim Benites MD - 06/13/2024 1:15 [...] - Mildly dilated left ventricle size with cksdztwp-cx-rvhulaxx decreased LV systolic function. LV ejection fraction [...] ACS/crushing chest pain, likely due to lateral MT, found to have surgical CAD with viability [...] elevation myocardial infarction) Cardiac resynchronization therapy defibrillator (LEACH TANK TENDER-D) - Medtronic Amplia Cardiomyopathy, ischemic Acute on chronic heart failure with reduced ejection fraction (HFrEF, <= 40%) Coronary artery disease involving council coronary artery of council heart without angina pectoris Type 2 diabetes [...] PCP: Mauro Berumen MD PCP phone number: [phone] Date of Admission: 06/02/2024 ( Hospital Day 10 days ) Attending:Ethel Carrillo MD ID: 69 y.o. male with a h/o DM type 2, HTN, HLD, current smoker (2-3 cigarettes/day), HFrEF with anICD for low EF (~30%), and CAD with prior MT x3 with JENNA placed in [facility], presented to [facility] with 1 hour of retrosternal CP (05/13) while watching TV, found to have STEMI. Active Problems: Active Hospital Problems Diagnosis STEMI (ST elevation myocardial infarction) Cardiac resynchronization therapy defibrillator (LEACH TANK TENDER-D) - Medtronic Amplia Cardiomyopathy, ischemic Acute on chronic heart failure with reduced ejection fraction (HFrEF, <= 40%) Coronary artery disease involving council coronary artery of council heart without angina pectoris Type 2 diabetes [...] in the last 7068 hours. Invalid input(s): [id number] Recent Labs 06/12/24 0425 06/11/24 2356 06/11/24 2025 06/11/24 1624 06/11/24 1108 06/11/24 0748 06/11/24 0357 06/11/24 0050 06/10/24 1922 06/10/24 1735 06/10/24 1125 06/10/24 0746 POCGLU 132 135 210* 81 233* 184 132 144 236* 123 216* 206* Heme No results for input(s): LDH, HAPTOGLOBIN, URICACID in the last 168 hours. ABG (Arterial Blood Gas) No results found for: PHART, PO2ART, [id number], QEQ5CPO Microbiology: Microbiology Results (Last 30 days) No results found for the last 720 hours. Imaging: Results for orders placed or performed during the hospital encounter of 06/02/24 XR Chest One View (Exam End: 06/03/2024 2:41 AM) Result Value WORKSTATION ID [id number] Impression No radiographically evident acute cardiopulmonary process. Thank you for letting us participate in the care of this patient. If you are a health care provider and have any questions regarding this report, please contact the number below. For patients who have questions please contact the health pet care attendant that requested your imaging first. Electronically signed by: Corazon Mauro MD, [facility] ([phone]), at 06/03/2024 3:06 AM MRI Cardiac Morphology Function wwo Contrast (Exam End: 06/07/2024 1:10 PM) Result Value WORKSTATION ID [id number] Impression - Findings consistent with an ischemic [...] - Mildly dilated left ventricle size with eawyxyzb-yj-kyrfaiea decreased LV systolic function. LV ejection fraction [...] who have questions please contact the health pet care attendant that requested your imaging first. Electronically signed by: Kriss Alonzo MD, [facility] ([phone]), at 06/07/2024 2:[address] Chest wo Contrast (Generic) (Exam End: 06/03/2024 4:33 PM) Result Value WORKSTATION ID [id number] Impression Cardiomegaly. Biventricular ICD leads in place. Thank you for letting us participate in the care of this patient. If you are a health care provider and have any questions regarding this report, please contact the number below. For patients who have questions please contact the health pet care attendant that requested your imaging first. Electronically signed by: Stuart Aponte MD, [facility] ([phone]), at 06/03/2024 4:47 PM XR Chest PA & Lateral (Generic) (Exam End: 06/07/2024 7:03 AM) Result Value WORKSTATION ID [id number] Impression Biventricular ICD leads intact and in [...] who have questions please contact the health pet care attendant that requested your imaging first. Electronically signed by: Stuart Aponte MD, [facility] ([phone]), at 06/07/2024 10:45 AM TTE: Limited echo performed by fellow recreation specialist to assess LV function. Left ventricle is [...] ischemic cardiomyopathy with HFrEF (~30% EF), prior MT with stents, DM type 2, HTN, HLD, active smoker, presented with anterior STEMI. Angiography revealed severe multivessel CAD with extensive calcification and YUE 3 flow in all vessels, without a clear culprit lesion. Currently pain-free after TNK, Plavix, ASA, and heparin, with mildly elevated LVEDP at 40 mmHg and mild volume overload. 06/12/24: Patient stable, asymptomatic. Plan to go to label printing machinist for balloon pump tomorrow, then willgo to [...] CODE Dain Colón MD Cardiology, M1-S2, Pager #[phone] 06/12/24 Associated attestation - Ethel Carrillo MD - 06/12/2024 9:12 PM EST CARDIOLOGY ATTENDING NOTE Patient: Goerge Mehta Date of Service: 06/12/2024 Date of [...] of two midnights or is on the [facility] inpatient only procedure list (status C) due to: acute myocardial infarction requiring titration of IV medication and fluid monitoring and decompensated congestive heart failure requiring IV medication and fluid monitoring Ethel Carrillo MD Cardiovascular Medicine Personal Pager [phone] 06/12/2024 9:12 PM * Alejandra Baumann, DRAMATIC CRITIC - 06/11/2024 4:21 PM EST Images from [...] too aggressive, suggest ICR 1:6 (rule of [id number]/81 = 6.25). George is up and walking [...] ischemic cardiomyopathy with HFrEF (~30% EF), prior MT with stents, DM type 2, HTN, HLD, [...] ac, metformin 1000mg BID Alejandra Baumann APRN [facility] Endocrinology Diabetes Management Pager [phone] Weekends please page [phone] 35 minutes were spent over the course [...] PCP: Mauro Berumen MD PCP phone number: [phone] Date of Admission: 06/02/2024 ( Hospital Day 9 days ) Attending:Melida Valdes MD ID: 69 y.o. male with a h/o DM type 2, HTN, HLD, current smoker (2-3 cigarettes/day), HFrEF with anICD for low EF (~30%), and CAD with prior MT x3 with JENNA placed in [place], [place], PAD, presented to [facility] with 1 hour of retrosternal CP (05/13) while watching TV, found to have STEMI. Active Problems: Active Hospital Problems Diagnosis STEMI (ST elevation myocardial infarction) Cardiac resynchronization therapy defibrillator (LEACH TANK TENDER-D) - Medtronic Amplia Cardiomyopathy, ischemic Acute on chronic heart failure with reduced ejection fraction (HFrEF, <= 40%) Coronary artery disease involving council coronary artery of council heart without angina pectoris Type 2 diabetes [...] in the last 7068 hours. Invalid input(s): [id number] Recent Labs 06/11/24 0357 06/11/24 0050 06/10/24 1922 06/10/24 1735 06/10/24 1125 06/10/24 0746 06/10/24 0423 06/10/24 0005 06/09/24 2036 06/09/24 1727 06/09/24 1152 06/09/24 0810 POCGLU 132 144 236* 123 216* 206* 154 125 197 174 211* 209* Heme No results for input(s): LDH, HAPTOGLOBIN, URICACID in the last 168 hours. ABG (Arterial Blood Gas) No results found for: PHART, PO2ART, FWQ9RMX, ULG0HPN Microbiology: Microbiology Results (Last 30 days) No results found for the last 720 hours. Imaging: Results for orders placed or performed during the hospital encounter of 06/02/24 XR Chest One View (Exam End: 06/03/2024 2:41 AM) Result Value WORKSTATION ID [id number] Impression No radiographically evident acute cardiopulmonary process. Thank you for letting us participate in the care of this patient. If you are a health care provider and have any questions regarding this report, please contact the number below. For patients who have questions please contact the health pet care attendant that requested your imaging first. Electronically signed by: Corazon Mauro MD, [facility] ([phone]), at 06/03/2024 3:06 AM MRI Cardiac Morphology Function wwo Contrast (Exam End: 06/07/2024 1:10 PM) Result Value WORKSTATION ID [id number] Impression - Findings consistent with an ischemic [...] - Mildly dilated left ventricle size with szzixxnf-gw-ehoxevwm decreased LV systolic function. LV ejection fraction [...] who have questions please contact the health pet care attendant that requested your imaging first. Electronically signed by: Kriss Alonzo MD, [facility] ([phone]), at 06/07/2024 2:[address] Chest wo Contrast (Generic) (Exam End: 06/03/2024 4:33 PM) Result Value WORKSTATION ID [id number] Impression Cardiomegaly. Biventricular ICD leads in place. Thank you for letting us participate in the care of this patient. If you are a health care provider and have any questions regarding this report, please contact the number below. For patients who have questions please contact the health pet care attendant that requested your imaging first. Electronically signed by: Stuart Aponte MD, [facility] ([phone]), at 06/03/2024 4:47 PM XR Chest PA & Lateral (Generic) (Exam End: 06/07/2024 7:03 AM) Result Value WORKSTATION ID [id number] Impression Biventricular ICD leads intact and in [...] who have questions please contact the health pet care attendant that requested your imaging first. Electronically signed by: Stuart Aponte MD, [facility] ([phone]), at 06/07/2024 10:45 AM TTE: Limited echo performed by fellow recreation specialist to assess LV function. Left ventricle is [...] Infusions: heparin (porcine) infusion 1,400 Units/hr (06/10/24 2381) PRN Meds:.insulin lispro, glucose 40% oral geL [...] ischemic cardiomyopathy with HFrEF (~30% EF), prior MT with stents, DM type 2, HTN, HLD, [...] CODE Dain Colón MD Cardiology, M1-S2, Pager #[phone] 06/11/24 Associated attestation - Ethel Carrillo MD [...] Ethel Carrillo MD Cardiovascular Medicine Personal Pager [phone] 06/11/2024 9:35 PM * Hilary Belle - 06/10/2024 12:39 PM EST Nutrition Services Note George Mehta is a 69 y.o. male Reason for intervention: hospital day 9 Nutrition Plan: Continue diet order: 60/60/75 CHO Level 2 Encourage good PO Lasix and Insulin noted Monitor weight Patient scheduled for a hospital day 9 nutrition evaluation. Cake Icer attempted to meet with pt at bedside [...] unless consulted in the interim. Hilary Belle Glue Clamp Operator * Mariia Montero RN - 06/10/2024 12:23 PM EST I have met with the patient to: discuss discharge planning needs. provide the [facility], Office of Care Management letter from the Adult Education Manager pertaining to rehab referrals. provide a letter describing our affiliations within the [facility] and educate about their right to choose where referrals are sent. provide a list of Home Health Agencies / Durable Medical Equipment vendors which serve their preferred geographic area. provided patient with CMS Star Quality Rating handout. They have requested referrals to: [facility]. [address] [place] [id number] RN / PT Anticipated d/c date: 06/20/24 Note routed to a Birdcage Assembler who will communicate referrals to facilities and provide any required information. * Dain Colón MD - 06/10/2024 7:17 AM EST Images from the original note were not included. . Cardiology Progress Note Patient info: Name: George Mehta : 1955 PCP: Mauro Berumen MD PCP phone number: [phone] Date of Admission: 06/02/2024 ( Hospital Day 8 days ) Attending:Melida Valdes MD ID: 69 y.o. male with a h/o DM type 2, HTN, HLD, current smoker (2-3 cigarettes/day), HFrEF with anICD for low EF (~30%), and CAD with prior MT x3 with JENNA placed in [place], [facility], PAD, presented to [facility] with 1 hour of retrosternal CP (05/13) while watching TV, found to have STEMI. Active Problems: Active Hospital Problems Diagnosis STEMI (ST elevation myocardial infarction) Cardiac resynchronization therapy defibrillator (LEACH TANK TENDER-D) - Medtronic Amplia Cardiomyopathy, ischemic Acute on chronic heart failure with reduced ejection fraction (HFrEF, <= 40%) Coronary artery disease involving council coronary artery of council heart without angina pectoris Type 2 diabetes [...] in the last 7068 hours. Invalid input(s): [id number] Recent Labs 06/10/24 0423 06/10/24 0005 06/09/24 2036 06/09/24 1727 06/09/24 1152 06/09/24 0810 06/09/24 0440 06/09/24 0034 06/08/24 2027 06/08/24 1616 06/08/24 1235 06/08/24 0810 POCGLU 154 125 197 174 211* 209* 131 186 176 159 226* 190 Heme No results for input(s): LDH, HAPTOGLOBIN, URICACID in the last 168 hours. ABG (Arterial Blood Gas) No results found for: PHART, PO2ART, QUQ4PLL, IHS7FLK Microbiology: Microbiology Results (Last 30 days) No results found for the last 720 hours. Imaging: Results for orders placed or performed during the hospital encounter of 06/02/24 XR Chest One View (Exam End: 06/03/2024 2:41 AM) Result Value WORKSTATION ID [id number] Impression No radiographically evident acute cardiopulmonary process. Thank you for letting us participate in the care of this patient. If you are a health care provider and have any questions regarding this report, please contact the number below. For patients who have questions please contact the health pet care attendant that requested your imaging first. Electronically signed by: Corazon Mauro MD, [facility] ([phone]), at 06/03/2024 3:06 AM MRI Cardiac Morphology Function wwo Contrast (Exam End: 06/07/2024 1:10 PM) Result Value WORKSTATION ID [id number] Impression - Findings consistent with an ischemic [...] - Mildly dilated left ventricle size with rnvljuur-kn-bzqeckal decreased LV systolic function. LV ejection fraction [...] who have questions please contact the health pet care attendant that requested your imaging first. Electronically signed by: Kriss Alonzo MD, [facility] ([phone]), at 06/07/2024 2:[address] Chest wo Contrast (Generic) (Exam End: 06/03/2024 4:33 PM) Result Value WORKSTATION ID [id number] Impression Cardiomegaly. Biventricular ICD leads in place. Thank you for letting us participate in the care of this patient. If you are a health care provider and have any questions regarding this report, please contact the number below. For patients who have questions please contact the health pet care attendant that requested your imaging first. Electronically signed by: Stuart Aponte MD, [facility] ([phone]), at 06/03/2024 4:47 PM XR Chest PA & Lateral (Generic) (Exam End: 06/07/2024 7:03 AM) Result Value WORKSTATION ID [id number] Impression Biventricular ICD leads intact and in [...] who have questions please contact the health pet care attendant that requested your imaging first. Electronically signed by: Stuart Aponte MD, [facility] ([phone]), at 06/07/2024 10:45 AM TTE: Limited echo performed by fellow recreation specialist to assess LV function. Left ventricle is [...] ischemic cardiomyopathy with HFrEF (~30% EF), prior MT with stents, DM type 2, HTN, HLD, [...] CODE Dain Colón MD Cardiology, M1-S2, Pager #[phone] 06/10/24 Associated attestation - Melida Valdes MD [...] a lytic and brought directly to the Production Control Supervisor. Cardiac catheterization demonstrated multivessel disease with [...] who is agreeable Melida Valdes MD Staff Computing Architect * Cherelle Fregoso APRN - 06/09/2024 8:59 [...] ischemic cardiomyopathy with HFrEF (~30% EF), prior MT with stents, DM type 2, HTN, HLD, [...] PCP: Mauro Berumen MD PCP phone number: [phone] Date of Admission: 06/02/2024 ( Hospital Day 7 days ) Attending:Melida Valdes MD ID: 69 y.o. male with a h/o DM type 2, HTN, HLD, current smoker (2-3 cigarettes/day), HFrEF with anICD for low EF (~30%), and CAD with prior MT x3 with JENNA placed in [place], [place], PAD, presented to [facility] with 1 hour of retrosternal CP (05/13) while watching TV, found to have STEMI. Active Problems: Active Hospital Problems Diagnosis STEMI (ST elevation myocardial infarction) Acute on chronic heart failure with reduced ejection fraction (HFrEF, <= 40%) Coronary artery disease involving council coronary artery of council heart without angina pectoris Type 2 diabetes [...] in the last 7068 hours. Invalid input(s): [id number] Recent Labs 06/09/24 0440 06/09/24 0034 06/08/24 2027 06/08/24 1616 06/08/24 1235 06/08/24 0810 06/08/24 0409 06/07/24 2357 06/07/24 2005 06/07/24 1631 06/07/24 1105 06/07/24 1103 POCGLU 131 186 176 159 226* 190 151 188 118 174 221* 250* Heme No results for input(s): LDH, HAPTOGLOBIN, URICACID in the last 168 hours. ABG (Arterial Blood Gas) No results found for: PHART, PO2ART, JKU3VUO, PFY6LAD Microbiology: Microbiology Results (Last 30 days) No results found for the last 720 hours. Imaging: Results for orders placed or performed during the hospital encounter of 06/02/24 XR Chest One View (Exam End: 06/03/2024 2:41 AM) Result Value WORKSTATION ID [id number] Impression No radiographically evident acute cardiopulmonary process. Thank you for letting us participate in the care of this patient. If you are a health care provider and have any questions regarding this report, please contact the number below. For patients who have questions please contact the health pet care attendant that requested your imaging first. Electronically signed by: Corazon Mauro MD, [facility] ([phone]), at 06/03/2024 3:06 AM MRI Cardiac Morphology Function wwo Contrast (Exam End: 06/07/2024 1:10 PM) Result Value WORKSTATION ID [id number] Impression - Findings consistent with an ischemic [...] - Mildly dilated left ventricle size with zkxndryi-au-znlmleks decreased LV systolic function. LV ejection fraction [...] who have questions please contact the health pet care attendant that requested your imaging first. Electronically signed by: Kriss Alonzo MD, [facility] ([phone]), at 06/07/2024 2:[address] Chest wo Contrast (Generic) (Exam End: 06/03/2024 4:33 PM) Result Value WORKSTATION ID [id number] Impression Cardiomegaly. Biventricular ICD leads in place. Thank you for letting us participate in the care of this patient. If you are a health care provider and have any questions regarding this report, please contact the number below. For patients who have questions please contact the health pet care attendant that requested your imaging first. Electronically signed by: Stuart Aponte MD, [facility] ([phone]), at 06/03/2024 4:47 PM XR Chest PA & Lateral (Generic) (Exam End: 06/07/2024 7:03 AM) Result Value WORKSTATION ID [id number] Impression Biventricular ICD leads intact and in [...] who have questions please contact the health pet care attendant that requested your imaging first. Electronically signed by: Stuart Aponte MD, [facility] ([phone]), at 06/07/2024 10:45 AM TTE: Limited echo performed by fellow recreation specialist to assess LV function. Left ventricle is [...] Infusions: heparin (porcine) infusion 1,400 Units/hr (06/08/24 9650) PRN Meds:.glucose 40% oral geL OR dextrose [...] ischemic cardiomyopathy with HFrEF (~30% EF), prior MT with stents, DM type 2, HTN, HLD, [...] CODE Dain Colón MD Cardiology, M1-S2, Pager #[phone] 06/09/24 Associated attestation - Melida Valdes MD [...] a lytic and brought directly to the Production Control Supervisor. Cardiac catheterization demonstrated multivessel disease with [...] insertion low EF. Melida Valdes MD Staff Computing Architect * Alejandra Baumann, JOSÉ ANTONIO - 06/08/2024 [...] ischemic cardiomyopathy with HFrEF (~30% EF), prior MT with stents, DM type 2, HTN, HLD, [...] to optimize glucose control Alejandra Baumann APRN [facility] Endocrinology Diabetes Management Pager [phone] Weekends please page [phone] 35 minutes were spent over the course [...] . Cardiology Progress Note Patient info: Name: Goerge Mehta : 1955 PCP: Mauro Berumen MD PCP phone number: [phone] Date of Admission: 06/02/2024 ( Hospital Day 6 days ) Attending:Melida Valdes MD ID: 69 y.o. male with a h/o DM type 2, HTN, HLD, current smoker (2-3 cigarettes/day), HFrEF with anICD for low EF (~30%), and CAD with prior MT x3 with JENNA placed in [place], [place], PAD, presented to [facility] with 1 hour of retrosternal CP (05/13) while watching TV, found to have STEMI. Active Problems: Active Hospital Problems Diagnosis STEMI (ST elevation myocardial infarction) Acute on chronic heart failure with reduced ejection fraction (HFrEF, <= 40%) Coronary artery disease involving council coronary artery of council heart without angina pectoris Type 2 diabetes [...] in the last 7068 hours. Invalid input(s): [id number] Recent Labs 06/08/24 0409 06/07/24 2357 06/07/24200406/07/24 1631 06/07/24 1105 06/07/24 1103 06/07/24 0745 06/07/24 0425 06/07/24 0008 06/06/24201706/06/24 1539 06/06/24 1339 POCGLU 151 188 118 174 221* 250* 175 127 182 143 147 317* Heme No results for input(s): LDH, HAPTOGLOBIN, URICACID in the last 168 hours. ABG (Arterial Blood Gas) No results found for: PHART, PO2ART, VDN8TTA, JCC0YKZ Microbiology: Microbiology Results (Last 30 days) No results found for the last 720 hours. Imaging: Results for orders placed or performed during the hospital encounter of 06/02/24 XR Chest One View (Exam End: 06/03/2024 2:41 AM) Result Value WORKSTATION ID [id number] Impression No radiographically evident acute cardiopulmonary process. Thank you for letting us participate in the care of this patient. If you are a health care provider and have any questions regarding this report, please contact the number below. For patients who have questions please contact the health pet care attendant that requested your imaging first. Electronically signed by: Corazon Mauro MD, [facility] ([phone]), at 06/03/2024 3:06 AM MRI Cardiac Morphology Function wwo Contrast (Exam End: 06/07/2024 1:10 PM) Result Value WORKSTATION ID [id number] Impression - Findings consistent with an ischemic [...] - Mildly dilated left ventricle size with lfxeqyeu-pw-pqnoidfu decreased LV systolic function. LV ejection fraction [...] who have questions please contact the health pet care attendant that requested your imaging first. Electronically signed by: Kriss Alonzo MD, [facility] ([phone]), at 06/07/2024 2:[address] Chest wo Contrast (Generic) (Exam End: 06/03/2024 4:33 PM) Result Value WORKSTATION ID [id number] Impression Cardiomegaly. Biventricular ICD leads in place. Thank you for letting us participate in the care of this patient. If you are a health care provider and have any questions regarding this report, please contact the number below. For patients who have questions please contact the health pet care attendant that requested your imaging first. Electronically signed by: Stuart Aponte MD, [facility] ([phone]), at 06/03/2024 4:47 PM XR Chest PA & Lateral (Generic) (Exam End: 06/07/2024 7:03 AM) Result Value WORKSTATION ID [id number] Impression Biventricular ICD leads intact and in [...] who have questions please contact the health pet care attendant that requested your imaging first. Electronically signed by: Stuart Aponte MD, [facility] ([phone]), at 06/07/2024 10:45 AM TTE: Limited echo performed by fellow recreation specialist to assess LV function. Left ventricle is [...] Infusions: heparin (porcine) infusion 1,400 Units/hr (06/08/24 0417) PRN Meds:.insulin lispro, potassium chloride ER OR [...] ischemic cardiomyopathy with HFrEF (~30% EF), prior MT with stents, DM type 2, HTN, HLD, [...] CODE Dain Colón MD Cardiology, M1-S2, Pager #[phone] 06/08/24 Associated attestation - Melida Valdes MD [...] a lytic and brought directly to the Production Control Supervisor. Cardiac catheterization demonstrated multivessel disease with [...] Otherwise clinically stable Melida Valdes MD Staff Computing Architect * Ross Manuel PA - 06/07/2024 12:00 PM EST Cardiac Electrophysiology CIED Interrogation/Programming Note Asked by MRI staff to evaluate and program Medtronic LEACH TANK TENDER-D to allow for MR imaging. Patient Active Problem List Diagnosis ','STEMI (ST elevation myocardial infarction) Acute on chronic heart failure with reduced ejection fraction (HFrEF, <= 40%) Coronary artery disease involving council coronary artery of council heart without angina pectoris Type 2 diabetes mellitus Device Data: Medtronic Amplia MRI Quad LEACH TANK TENDER-D [id number] #[id number] 06/16/2019 RA Medtronic 4076 CapSureFix Novus [id number] 06/16/2019 RV Medtronic 6935M [id number] 06/16/2019 LV Medtronic 4298 Attain Performa MRI [id number] 06/16/2019 DDD @ 50/130/130 Adaptive Bi-V and LV VF >188bpm ATP, 35j x6 FVT >188-222bpm burst 2, 35jx5 VT Battery longevity: 2.5yrs; charge time 4s P wave: 2.3mV R wave: >20.0mV Atrial impedance: 458 ohms RV impedance: 646 ohms LV impedance: 722 ohms Atrial threshold: 0.5V @ 0.4ms RV threshold: LV threshold: 1.75V @ 0.4ms AP 0.2% ANGIO TECHNOLOGIST 97.7% AT/AF 0% Impression and Plan: 1. Interrogated device to determine suitability for MRI 2. Programmed to MRI safe mode - VOO @ 70 3. Scan performed 4. Programming restored to baseline settings 5. Reinterrogated to verify appropriate function and settings 6. Device follow up as previously scheduled Provider: HENOK Meyer EP Consult attending physician: Libby Barton MD EP Consult positional pager #[phone](EPMD) EP Device interrogation positional pager # [phone] * Dain Colón MD - 06/07/2024 7:09 AM EST Images from the original note were not included. . Cardiology Progress Note Patient info: Name: George Mehta : 1955 PCP: Mauro Berumen MD PCP phone number: [phone] Date of Admission: 06/02/2024 ( Hospital Day 5 days ) Attending:Melida Valdes MD ID: 69 y.o. male with a h/o DM type 2, HTN, HLD, current smoker (2-3 cigarettes/day), HFrEF with anICD for low EF (~30%), and CAD with prior MT x3 with JENNA placed in [place], [place], PAD, presented to [facility] with 1 hour of retrosternal CP (05/13) while watching TV, found to have STEMI. Active Problems: Active Hospital Problems Diagnosis STEMI (ST elevation myocardial infarction) Acute on chronic heart failure with reduced ejection fraction (HFrEF, <= 40%) Coronary artery disease involving council coronary artery of council heart without angina pectoris Type 2 diabetes [...] in the last 7068 hours. Invalid input(s): [id number] Recent Labs 06/07/24 0425 06/07/24 0008 06/06/24 2018 06/06/24 1539 06/06/24 1339 06/06/24 1134 06/06/24 0757 06/06/24 0653 06/05/24 2231 06/05/24 1622 06/05/24 1134 06/05/24 0727 POCGLU 127 182 143 147 317* 264* 195 187 238* 205* 211* 166 Heme No results for input(s): LDH, HAPTOGLOBIN, URICACID in the last 168 hours. ABG (Arterial Blood Gas) No results found for: PHART, PO2ART, GOX1NVV, ZMS0FDJ Microbiology: Microbiology Results (Last 30 days) No results found for the last 720 hours. Imaging: Results for orders placed or performed during the hospital encounter of 06/02/24 XR Chest One View (Exam End: 06/03/2024 2:41 AM) Result Value WORKSTATION ID [id number] Impression No radiographically evident acute cardiopulmonary process. Thank you for letting us participate in the care of this patient. If you are a health care provider and have any questions regarding this report, please contact the number below. For patients who have questions please contact the health pet care attendant that requested your imaging first. Electronically signed by: Corazon Mauro MD, [facility] [facility] ([phone]), at 06/03/2024 3:[address] Chest wo Contrast (Generic) (Exam End: 06/03/2024 4:33 PM) Result Value WORKSTATION ID [id number] Impression Cardiomegaly. Biventricular ICD leads in place. Thank you for letting us participate in the care of this patient. If you are a health care provider and have any questions regarding this report, please contact the number below. For patients who have questions please contact the health pet care attendant that requested your imaging first. Electronically signed by: Stuart Aponte MD, [facility] ([phone]), at 06/03/2024 4:47 PM TTE: Limited echo performed by fellow recreation specialist to assess LV function. Left ventricle is [...] Infusions: heparin (porcine) infusion 1,400 Units/hr (06/06/24 0234) PRN Meds:.insulin lispro, potassium chloride ER OR [...] ischemic cardiomyopathy with HFrEF (~30% EF), prior MT with stents, DM type 2, HTN, HLD, [...] Dain Colón MD (PGY-1) Cardiology, M1-S2, Pager #[phone] 06/07/24 Associated attestation - Melida Valdes MD [...] a lytic and brought directly to the Production Control Supervisor. Cardiac catheterization demonstrated multivessel disease with [...] for further guidance. Melida Valdes MD Staff Computing Architect * Dain Colón MD - 06/06/2024 7:17 AM EST Images from the original note were not included. . Cardiology Progress Note Patient info: Name: George Mehta : 1955 PCP: Mauro Berumen MD PCP phone number: [phone] Date of Admission: 06/02/2024 ( Hospital Day 4 days ) Attending:Melida Valdes MD ID: 69 y.o. male with a h/o DM type 2, HTN, HLD, current smoker (2-3 cigarettes/day), HFrEF with anICD for low EF (~30%), and CAD with prior MT x3 with JENNA placed in [place], Melanoma, PAD, presented to [facility] with 1 hour of retrosternal CP (05/13) while watching TV, found to have STEMI. Active Problems: Active Hospital Problems Diagnosis STEMI (ST elevation myocardial infarction) Acute on chronic heart failure with reduced ejection fraction (HFrEF, <= 40%) Coronary artery disease involving council coronary artery of council heart without angina pectoris Type 2 diabetes [...] in the last 7068 hours. Invalid input(s): [id number] Recent Labs 06/06/24 0653 06/05/24 2231 06/05/24 1622 06/05/24 1134 06/05/24 0727 06/04/24 1943 06/04/24 1526 06/04/24 1109 06/04/24 0711 06/03/24 2005 06/03/24 1748 06/03/24 1114 POCGLU 187 238* 205* 211* 166 175 154 188 182 136 191 166 Heme No results for input(s): LDH, HAPTOGLOBIN, URICACID in the last 168 hours. ABG (Arterial Blood Gas) No results found for: PHART, PO2ART, HYO2VWM, ISD8BPU Microbiology: Microbiology Results (Last 30 days) No results found for the last 720 hours. Imaging: Results for orders placed or performed during the hospital encounter of 06/02/24 XR Chest One View (Exam End: 06/03/2024 2:41 AM) Result Value WORKSTATION ID [id number] Impression No radiographically evident acute cardiopulmonary process. Thank you for letting us participate in the care of this patient. If you are a health care provider and have any questions regarding this report, please contact the number below. For patients who have questions please contact the health pet care attendant that requested your imaging first. Electronically signed by: Corazon Mauro MD, [facility] ([phone]), at 06/03/2024 3:[address] Chest wo Contrast (Generic) (Exam End: 06/03/2024 4:33 PM) Result Value WORKSTATION ID [id number] Impression Cardiomegaly. Biventricular ICD leads in place. Thank you for letting us participate in the care of this patient. If you are a health care provider and have any questions regarding this report, please contact the number below. For patients who have questions please contact the health pet care attendant that requested your imaging first. Electronically signed by: Stuart Aponte MD, [facility] ([phone]), at 06/03/2024 4:47 PM TTE: Limited echo performed by fellow recreation specialist to assess LV function. Left ventricle is [...] ischemic cardiomyopathy with HFrEF (~30% EF), prior MT with stents, DM type 2, HTN, HLD, [...] Dain Colón MD (PGY-1) Cardiology, M1-S2, Pager #[phone] 06/06/24 Associated attestation - Melida Valdes MD [...] a lytic and brought directly to the Production Control Supervisor. Cardiac catheterization demonstrated multivessel disease with [...] management. Help appreciated Melida Valdes MD Staff Computing Architect * Frederick Dunn MD - 06/05/2024 8:13 AM EDT Images from the original note were not included. . Cardiology Progress Note Patient info: Name: George Mehta : 1955 PCP: Mauro Berumen MD PCP phone number: [phone] Date of Admission: 06/02/2024 ( Hospital Day 3 days ) Attending:Melida Valdes MD ID: 69 y.o. male with a h/o DM type 2, HTN, HLD, current smoker (2-3 cigarettes/day), HFrEF with anICD for low EF (~30%), and CAD with prior MT x3 with JENNA placed in [place], Melanoma, [...] in the last 7068 hours. Invalid input(s): [id number] Recent Labs 06/05/24 1134 06/05/24 0727 06/04/24 1943 06/04/24 1526 06/04/24 1109 06/04/24 0711 06/03/24 2005 06/03/24 1748 06/03/24 1114 06/03/24 0754 06/02/24 2331 POCGLU 211* 166 175 154 188 182 136 191 166 195 156 Heme No results for input(s): LDH, HAPTOGLOBIN, URICACID in the last 168 hours. ABG (Arterial Blood Gas) No results found for: PHART, PO2ART, QXR2EGO, MQG6MRT Microbiology: Microbiology Results (Last 30 days) No results found for the last 720 hours. Imaging: Results for orders placed or performed during the hospital encounter of 06/02/24 XR Chest One View (Exam End: 06/03/2024 2:41 AM) Result Value WORKSTATION ID [id number] Impression No radiographically evident acute cardiopulmonary process. Thank you for letting us participate in the care of this patient. If you are a health care provider and have any questions regarding this report, please contact the number below. For patients who have questions please contact the health pet care attendant that requested your imaging first. Electronically signed by: Corazon Mauro MD, [facility] ([phone]), at 06/03/2024 3:[address] Chest wo Contrast (Generic) (Exam End: 06/03/2024 4:33 PM) Result Value WORKSTATION ID [id number] Impression Cardiomegaly. Biventricular ICD leads in place. Thank you for letting us participate in the care of this patient. If you are a health care provider and have any questions regarding this report, please contact the number below. For patients who have questions please contact the health pet care attendant that requested your imaging first. Electronically signed by: Stuart Aponte MD, [facility] ([phone]), at 06/03/2024 4:47 PM TTE: Limited echo performed by fellow recreation specialist to assess LV function. Left ventricle is [...] ischemic cardiomyopathy with HFrEF (~30% EF), prior MT with stents, DM type 2, HTN, HLD, [...] all the information they need regarding the LEACH TANK TENDER-D.Plan for MRI tomorrow. Starting 40 mg IV [...] a lytic and brought directly to the Production Control Supervisor. Cardiac catheterization demonstrated multivessel disease with [...] maintenance of 40. Melida Valdes MD Staff Computing Architect * Migel Javier RN - 06/05/2024 6:21 AM EDT Implanted device record scanned into: Chart Review-->Media-->External Cardiology-->03/25/2024. [employer] MRI Quad CRTD [id number] Serial #: [id number] DDD mode A + Bi/V Rates 50-130 Migel Javier RN * Dain Colón MD - 06/04/2024 11:16 AM EDT Implant Records Requested Type: LEACH TANK TENDER-D Inside Sales Advisor: [employer] Product: [id number] Amplia MRI MRI compatibility: Compatible for 1.5-3 T Model #: [id number] Placed at: [place], [place] Records requested for MRI: 1. Operative report 2. Implant log I requested that these records be sent to our MRI department, Dain Colón MD 06/04/24 11:58 AM * Dain Colón MD - 06/04/2024 6:57 AM EDT Images from the original note were not included. . Cardiology Progress Note Patient info: Name: George Mehta : 1955 PCP: Mauro Berumen MD PCP phone number: [phone] Date of Admission: 06/02/2024 ( Hospital Day 2 days ) Attending:Delroy Fofana MD ID: 69 y.o. male with a h/o DM type 2, HTN, HLD, current smoker (2-3 cigarettes/day), HFrEF with anICD for low EF (~30%), and CAD with prior MT x3 with JENNA placed in [place], Melanoma, [...] in the last 7068 hours. Invalid input(s): [id number] Recent Labs 06/03/24 2005 06/03/24 1748 06/03/24 1114 06/03/24 0754 06/02/24 2331 POCGLU 136 191 166 195 156 Heme No results for input(s): LDH, HAPTOGLOBIN, URICACID in the last 168 hours. ABG (Arterial Blood Gas) No results found for: PHART, PO2ART, MYM7NBL, DTR6EMK Microbiology: Microbiology Results (Last 30 days) No results found for the last 720 hours. Imaging: Results for orders placed or performed during the hospital encounter of 06/02/24 XR Chest One View (Exam End: 06/03/2024 2:41 AM) Result Value WORKSTATION ID [id number] Impression No radiographically evident acute cardiopulmonary process. Thank you for letting us participate in the care of this patient. If you are a health care provider and have any questions regarding this report, please contact the number below. For patients who have questions please contact the health pet care attendant that requested your imaging first. Electronically signed by: Corazon Mauro MD, [facility] ([phone]), at 06/03/2024 3:[address] Chest wo Contrast (Generic) (Exam End: 06/03/2024 4:33 PM) Result Value WORKSTATION ID [id number] Impression Cardiomegaly. Biventricular ICD leads in place. Thank you for letting us participate in the care of this patient. If you are a health care provider and have any questions regarding this report, please contact the number below. For patients who have questions please contact the health pet care attendant that requested your imaging first. Electronically signed by: Stuart Aponte MD, [facility] ([phone]), at 06/03/2024 4:47 PM TTE: Limited echo performed by fellow recreation specialist to assess LV function. Left ventricle is [...] ischemic cardiomyopathy with HFrEF (~30% EF), prior MT with stents, DM type 2, HTN, HLD, [...] -Lasix 40 mg IV given in the label printing machinist; assess diuretic response, consider re-dosing -Continue carvedilol; [...] @YESSI@ Dain Colón MD (PGY-1) Cardiology M1-S2, #[id number] 06/04/2024, 6:57 AM Associated attestation - Melida [...] a lytic and brought directly to the Production Control Supervisor. Cardiac catheterization demonstrated multivessel disease with [...] -Diuresis with Timothyix Melida Valdes MD Staff Computing Architect * Fatmata Mcallister PT - 06/03/2024 3:29 PM EDT Physical Therapy 06/03/24 1527 Evaluation & Treatment Document Type contact Total Minutes, Physical Therapy 0 Comment, Session Not Performed PT consult received/hx/current status reviewed. w/u ongoing following STEMI, intenventional plan TBD. Pt is independently mobile at present, will defer imminent asesssment and f.u as appropriate when POC determined (CABG vs PCI) Fatmata Mcallister PT, [facility] Pager [phone] Inpatient Physical Therapy * Marlin Gómez MD [...] Marlin Gómez MD Cardiology S2, Pager # [phone] 06/03/2024 * Delroy Fofana MD - 06/03/2024 7:16 AM EDT Images from the original note were not included. . Cardiology Progress Note Patient info: Name: George Mehta : 1955 PCP: Mauro Berumen MD PCP phone number: [phone] Date of Admission: 06/02/2024 ( Hospital Day 1 day ) Attending:Nuha Rojo MD ID: 69 y.o. male with a h/o DM type 2, HTN, HLD, current smoker (2-3 cigarettes/day), HFrEF with anICD for low EF (~30%), and CAD with prior MT x3 with JENNA placed in [place], Melanoma, [...] in the last 7068 hours. Invalid input(s): [id number] Recent Labs 06/02/24 2331 POCGLU 156 Heme No results for input(s): LDH, HAPTOGLOBIN, URICACID in the last 168 hours. ABG (Arterial Blood Gas) No results found for: PHART, PO2ART, VWB0GQL, KDP6ROH Microbiology: Microbiology Results (Last 30 days) No results found for the last 720 hours. Imaging: Results for orders placed or performed during the hospital encounter of 06/02/24 XR Chest One View (Exam End: 06/03/2024 2:41 AM) Result Value WORKSTATION ID [id number] Impression No radiographically evident acute cardiopulmonary process. Thank you for letting us participate in the care of this patient. If you are a health care provider and have any questions regarding this report, please contact the number below. For patients who have questions please contact the health pet care attendant that requested your imaging first. Electronically signed by: Corazon Mauro MD, [facility] ([phone]), at 06/03/2024 3:06 AM TTE: Limited echo performed by fellow recreation specialist to assess LV function. Left ventricle is [...] ischemic cardiomyopathy with HFrEF (~30% EF), prior MT with stents, DM type 2, HTN, HLD, [...] -Lasix 40 mg IV given in the label printing machinist; assess diuretic response, consider re-dosing -Continue carvedilol; [...] of days: 0 Code status: @CODESTATUS@ Dain Colnó MD (PGY-1) Cardiology M1-S2, #[id number] 06/03/2024, 7:16 AM Cardiology Staff - Progress Note Addendum This patient was seen and examined on morning rounds with the S2 inpatient team. I agree with the findings and plan of care per Dain Colón MD (medical donation professional). Please refer to his note above for details. Very pleasant 69 year old male but he is obese, diabetic, and he is a SMOKER with known prior CAD and moderately reduced LVEF (30%). He has a pacer. History of surgical resection of melanoma on his head. The patient was transferred overnight to [facility] as a STEMI. He was treated initially with a lytic (TNK) and brought directly to the label printing machinist. The cath demonstrated 3VD with diffuse disease [...] - 06/13/2024 10:58 AM EST ICU Blue (#[id number]) H&P Patient info: Name: George Mehta : 1955 PCP: Mauro Berumen MD PCP phone number: [phone] Date of Admission: 06/02/2024 ( Hospital Day 11 days ) Attending:Haja Byrnes MD ID: George Mehta is a 69 y.o. male with a h/o DM type 2, HTN, HLD, current smoker (2-3 cigarettes/day), HFrEF with an ICD for low EF (~30%), and CAD with prior MT x3 with JENNA placed in [facility], PAD, presented to [facility] with 1 hour of retrosternal CP (05/13) while watching TV, foundto have STEMI. HPI: Shahnaz Scanlon H&P 06/02 69 y.o. male with a h/o DM type 2, HTN, HLD, current smoker (2-3 cigarettes/day), HFrEF with an ICD for low EF (~30%), and CAD with prior MT x3 with JENNA placed in [place], [facility], PAD, presented to [facility] with 1 hour of retrosternal CP (05/13) while watching TV. CP was non-radiating, not asso ciated with diaphoresis, nausea, or SOB. Denies orthopnea, MARTÍNEZ, palpitations, or LE edema. ECG showed findings consistent with anterior STEMI. He received TNK and was transferred for PCI. Coronary angiography showed a small, non-dominant RCA with bcyb-bq-gndpmsre disease and a dominant,heavily calcified left system with prior stents in the LAD and OM. The LM bifurcates into the LAD and LCX, both heavily calcified. The proximal LCX has a 75% calcified, aneurysmal lesion, and an 80% calcified lesion distally before a large OM2. OM1 is a CAN CLEANER with in-stent restenosis, filling retrograde via collaterals. [...] 40 mg Lasix was administered in the label printing machinist. Cardiac surgery was consulted and plan for [...] Blood Gas) No results for input(s): PHART, IUX4ZPI, PO2ART, VCF0PMR, LACTATEVEN, PWU8MMT, PFRATIOART2 in the last 168 hours. VBG (Venous Blood Gas) Recent Labs 06/10/24 1742 PHVEN 7.34 PO2VEN 24 KQQ2OLI 27.4 Mixed Venous Sat No results for input(s): R4FNBG3 in the last 168 hours. Intake/Output Summary [...] in the last 7068 hours. Invalid input(s): RYJCYHFEXAX1A Recent Labs 06/13/24 0741 06/13/24 0325 06/12/24 2353 06/12/24 1932 06/12/24 1541 06/12/24 1121 06/12/24 0800 06/12/24 0425 06/11/24 2356 06/11/24 2025 06/11/24 1624 06/11/24 1108 POCGLU 126 99 141 158 113 207* 169 132 135 210* 81 233* Heme No results for input(s): LDH, HAPTOGLOBIN, URICACID in the last 168 hours. ABG (Arterial Blood Gas) No results for input(s): PHART, JZM6NCZ, PO2ART, RVA5NHK, LACTATEVEN, WZL8EXO, PFRATIOART2 in the last 168 hours. VBG (Venous Blood Gas) Recent Labs 06/10/24 1742 PHVEN 7.34 PO2VEN 24 FSW8XSP 27.4 Mixed Venous Sat No results for input(s): B8WQVX6 in the last 168 hours. Microbiology: Microbiology Results (Last 30 days) No results found for the last 720 hours. Assessment & Plan: George Mehta is a 69 y.o. male with CAD, ischemic cardiomyopathy with HFrEF (~30% EF), prior MT with stents, DM type 2, HTN, HLD, active smoker, presented with anterior STEMI. Angiography revealedsevere multivessel CAD with extensive calcification and YUE 3 flow in all vessels, without a clearculprit lesion. Currently pain-free after TNK, Plavix, ASA, and heparin, with mildly elevated LVEDPat 40 mmHg and mild volume overload. Admitted to [facility] for clarence-operative management following IABP placement. Planned for CABG 06/14. 06/13/2024 Patient now s/p IABP placement. Procedure occurred without complication. IABP set to 1:1. Will continue with heparin for ASCVD. Plan for CABG 06/14. Patient NPO at [place]. #ASCVD / STEMI: -Holding Plavix; continue ASA [...] (Give Meds) Daily Healthy Menu Choices/Cardiac diet ([facility]-Diet) DVT Prophylaxis: SCD GI Prophylaxis: None Dispo: [...] TUD (abstinent since admission), ASCVD with multipleprior MT and PCIs, ICM/HFrEF LVEF 30% (all [...] is in the chart Rebeca Prado MD Digital Community Manager PGY6 [id number] * Shahnaz Scanlon MD [...] low EF (~30%), and CAD with prior MT x3 with JENNA placed in [place], Melanoma, PAD, presented to [facility] with 1 hour of retrosternal CP (05/13) while watching TV. CP was non-radiating, not assoc iated with diaphoresis, nausea, or SOB. Denies orthopnea, MARTÍNEZ, palpitations, or LE edema. ECG showed findings consistent with anterior STEMI. He received TNK and was transferred for PCI. Coronary angiography showed a small, non-dominant RCA with fxuj-jc-qrjwbxko disease and a dominant,heavily calcified left system with prior stents in the LAD and OM. The LM bifurcates into the LAD and LCX, both heavily calcified. The proximal LCX has a 75% calcified, aneurysmal lesion, and an 80% calcified lesion distally before a large OM2. OM1 is a CAN CLEANER with in-stent restenosis, filling retrograde via collaterals. [...] 40 mg Lasix was administered in the label printing machinist. Past Medical History: As per HPI Significant [...] Affect: Mood normal. Behavior: Behavior normal. Diagnostics: [facility] 06/02/2024 Coronary angiography revealed small non [...] ischemic cardiomyopathy with HFrEF (~30% EF), prior MT with stents, DM type 2, HTN, HLD, [...] -Lasix 40 mg IV given in the label printing machinist; assess diuretic response. -Continue carvedilol; hold Entresto [...] & Follow-up Care: Contact information for follow-up [facility] [address] [facility] [address] Cardiac Rehab, [address] [facility] [address] RN AVILA confirmed with [facility] that they [...] MEDICARE Payor: [employer] MANAGED MEDICARE / Plan: [facility] MANAGED MEDICARE COMPLETE / Product Type: [...] Implemented as Appropriate) 06/20/2024 1028 by Michelle Orzoco RN Outcome: Ongoing (Interventions Implemented as Appropriate) [...] Roberts RN - 06/18/2024 10:50 AM EST [facility] CARDIAC REHABILITATION George Mehta was seen today [...] recs Patient is insured through: Primary Insurance: [employer] MANAGED MEDICARE Payor: [employer] MANAGED MEDICARE / Plan: [employer] MANAGED MEDICARE COMPLETE / Product Type: *No Product type* / Secondary Insurance: N/A Last Physical Therapy Recommendation: (home with ) with to be determined (06/15/24 1028) Plan for discharge is: Home w/ Services Outpatient Agency/Support Group Needs: Homecare agency Agency Choices: [facility]: Medication checks, Registered Nurse, Physical Therapy Agency Referrals: pending clinical course and PT/OT recs [facility] [address] [facility] [address] PHONE: [phone] FAX: [phone] Transportation: family or friend will provide Barriers [...] Agency/Support Group Needs: Homecare agency Agency Choices: [facility]: Medication checks, Registered Nurse, Physical Therapy Agency Referrals: pending clinical course and PT/OT recs [facility]. [address] [facility] [address] PHONE: [phone] FAX: [phone] Transportation: family or friend will provide Barriers [...] Loja MD - 06/14/2024 8:48 AM EST [facility] Operative Note Patient Name: George Mehta : [id number] MR#: [id number] Case Date: 06/14/2024 Surgeon: Surgeons and Role: * Bobby Loja MD - Primary * Rashi Bass PA - Physician Airworthiness Safety Inspector Preoperative diagnosis: CAD, MARIALUISA flickering mass on [...] procedures today and tomorrow. Report called to [facility] - all belongings with patient. PLAN MOVING FORWARD: laboratory equipment cleaner and transfer to CV. INDIVIDUALIZED FALL PREVENTION [...] Agency/Support Group Needs: Homecare agency, Agency Choices: [facility]. Home Health Services: Medication checks, Registered Nurse, Physical Therapy Agency Referrals: [facility]. [address] [place] [phone] RN / PT Routed 06/10 Transportation: family [...] with home health services when medically ready. rotary drum dyer/Primary Care Sales Representative will continue to follow patient???s progress and remain available if situation changes for coordination of care, psychosocial support and/or discharge planning. Anticipated Date of Discharge: 06/18/2024 Mariia Montero RN CM Extension [phone] * Plan of Care - Migel Javier [...] No Patient is insured through: Primary Insurance: [facility] MANAGED MEDICARE Payor: [facility] MANAGED MEDICARE / Plan: [facility] MANAGED MEDICARE COMPLETE / Product Type: [...] consult for high risk PCI vs CABG rotary drum dyer/Primary Care Sales Representative will continue to follow patient???s progress and remain available if situation changes for coordination of care, psychosocial support and/or discharge planning. Anticipated Date of Discharge: 06/11/2024 Mariia Montero RN Extension [phone] * Plan of Care - Becca Hope [...] ischemic cardiomyopathy with HFrEF (~30% EF), prior MT with stents, DM type 2, HTN, HLD, [...] CABG and to provide a review of [facility] diabetes care. Diabetes History: George Mehta has [...] Breakfast- varies - eggs with khoury or [place] citizen muffin Lunch- turkey sandwich Supper- meat and [...] ischemic cardiomyopathy with HFrEF (~30% EF), prior MT with stents, DM type 2, HTN, HLD, [...] Baumann APRN Endocrinology Diabetes Management Service Pager: [phone] Weekends please page [phone] 80 minute visit was spent in counseling [...] y.o. male with a PMHx of previous MT s/p PCI x3, ICM/HFrEF (LVEF 30%) s/p ICD, DMII, HTN, HLD, remote melanoma, and smoker who presented to [facility] last night via EMS after developing acute, severe chest pain while watching TV. Patient was ruled in for STEMI, given TNK, ASA, plavix, heparin gtt, and sent to [facility] for coronary angiography. LHC demonstrated severely calcified left coronary system with notable LCx 75/80% lesions and CAN CLEANER OM1 with ISR with collateral retrograde filling, [...] elevation myocardial infarction) Past Medical History: previous MT s/p PCI x3 ICM/HFrEF (LVEF 30%) s/p [...] is large. OM1 appears to be a CAN CLEANER, with in stentrestenosis and fills retrograde via [...] y.o. male admitted with STEMI s/p TNK, [facility] showing multivessel CAD including ISR, no [...] to our service. Signed: Paula Treviño PA-C [facility] Section of Cardiac Surgery Date: 06/03/2024 * Initial Assessments - Catina Estrada MSW - 06/03/2024 10:32 AM EDT Office of Care Management Initial Assessment CHINA Humphrey reviewed record and discussed patient with Care Team. Source of Information: Team, bedside nurse, medical record, and Patient MANAGER SUPPLY CHAIN Introduced self/reviewed role; services accepted. Admitted From: [...] surrogate would be surrogate decision maker per [place] decision making law. (Only good for 180 days) Any patient receiving care in [place] must abide by [place] law. The hierarchy for surrogate decision making [...] (i) The agent with financial power of erisa attorney or a conservator appointed in accordance [...] In the past 12 months has the [employer], gas, oil, or water [employer] threatened to shut off services in your [...] in the bathroom) Home Address confirmed as: [address] [place] [address] [address] [facility] [address] Social & Family Supports: All names listed [...] N/A ; Prescription Coverage: Yes Preferred Pharmacy: [id number] - [facility], [place] - [address] [facility] [address] [facility] [address] [place] Status: Patient is a : No Primary Care Provider confirmed: Mauro Berumen MD [phone] Patient/Caregiver Goals of Treatment: Potential Needs for [...] care as indicated. [facility] Min Cardiology, [phone]. [phone] * Brief Op Note - Angeles Gaxiola PA - 06/03/2024 12:23 AM EDT Preliminary Cardiac Catheterization Procedure Note: Patient Name: George Mehta : [id number] MR#: [id number] Case Date: 06/02/2024 - 06/03/2024 Nurse Outreach Case Manager: Surgeons and Role: * Nuha Shen MD - Primary * Angeles Gaxiola PA - Physician Airworthiness Safety Inspector Preoperative diagnosis: STEMI Postoperative diagnosis: * STEMI * Procedure(s) performed: RRA access [facility] Coronary angiogram IVUS LM/LAD/LCX Access: 6 Fr RRA A time-out was conducted prior to the start of the procedure to verify the correct patient and procedure, procedure location, and all relevant critical information. Preliminary findings: 69 year old current smoker (1-2 cigarette's per day), DM type 2, hypertension, dyslipidemia, ICD for HFrEF/low EF (~30%), CAD with prior MT and 3 stents historically (in [place]) who presented to [facility] with 1 [...] is large. OM1 appears to be a CAN CLEANER, with in stentrestenosis and fills retrograde via [...] receive 40 mg of lasix in the label printing machinist. 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) 06/14/2024 7:34 AM EST CAD Endoscopy W/Video-Asst Vein [place], Cabg ([id number]) 06/14/2024 7:34 AM EST CAD Cabg, Artery-Vein, Two ([id number]) 06/14/2024 7:34 AM EST CAD [place], Arterial, Single ([id number]) 06/14/2024 7:34 AM EST CAD TRANSESOPHAGEAL ECHOCARDIOGRAM IN THE OR Routine 06/14/2024 7:20 AM EST Coronary artery disease involving council coronary artery of council heart without angina pectoris POC, GLUCOSE Routine [...] 06/13/2024 4:09 PM EST TYPE AND SCREEN ([facility]/CGP/RAFITA) STAT 06/13/2024 11:53 AM EST POC, GLUCOSE [...] TEST O RDERABLES [facility] [place] [address] * (ABNORMAL) Basic Metabolic Panel (06/21/2024 2:09 AM EST) Glucose 169 65 - 199 mg/dL 06/21/2024 3:10 AM EST [facility] Comment:Glucose Concentratio n >=200 mg/dL plus symptoms is consistent with Diabetes Mellitus. Blood Urea Nitrogen 27(H) 10 - 20 mg/dL 06/21/2024 3:10 AM [facility] Creatinine 1.24 0.80 - 1.50 mg/dL 06/21/2024 3:10 AM [facility] Sodium 138 135 - 145 mMol/L 06/21/2024 3:10 AM EST [facility] Potassium 4.2 3.5 - 5.0 mMol/L 06/21/2024 3:10 AM EST [facility] Chloride 100 98 - [...] mL/min/1. 73 m?? 06/21/2024 3:10 AM EST [facility] Comment: [...] APRN CHEMISTRY ORDERABL ES Performing Organization Address City/[facility]/ZIP Co de Phone Number [facility] [place] [address] * POC, GLUCOSE (06/21/2024 12:04 AM EST) Glucometer, POC 157 65 - 199 mg/dL 06/21/2024 12:04 AM EST [facility] Comment:Supplemental ranges: <140 mg/dL before meals <180 mg/dL all other times of the day. Blood CAPILLARY BLOOD / Unknown 06/21/2024 12:04 AM EST 06/21/2024 12:04 AM EST Bobby Loja MD POINT OF CARE TEST O RDERABLES [facility] [place] [address] * POC, GLUCOSE (06/20/2024 11:14 PM EST) [...] CARE TEST O RDBECKIE Performing Organization Address City/[facility]/ZIP Co de Phone Number [facility] [place] [address] * POC, GLUCOSE (06/20/2024 7:16 PM EST) [...] Organization Address [facility] Co de Phone Number [facility] [place] [address] * POC, GLUCOSE (06/20/2024 3:39 PM EST) [...] CARE TEST O NIKA Performing Organization Address City/[facility]/ZIP Co de Phone Number [facility] [place] [address] * POC, GLUCOSE (06/20/2024 12:02 PM EST) [...] Organization Address [facility] Co de Phone Number [facility] [place] [address] * POC, GLUCOSE (06/20/2024 7:10 AM EST) Glucometer, POC 130 65 - 199 mg/dL 06/20/2024 7:11 AM [facility] Comment:Supplemental ranges: <140 mg/dL before meals <180 mg/dL all other times of the day. Blood CAPILLARY BLOOD / Unknown 06/20/2024 7:10 AM EST 06/20/2024 7:11 AM EST Bobby Loja MD POINT OF CARE TEST Abimael MAHER Performing Organization Address [facility] de Phone Number [facility] [place] [address] * (ABNORMAL) Basic Metabolic Panel (06/20/2024 2:28 [...] - 5.0 mMol/L 06/20/2024 3:06 AM EST [facility] Chloride 100 98 - 107 mMol/L 06/20/2024 3:06 AM EST [facility] Carbon Dioxide 29 22 - 31 mMol/L 06/20/2024 3:06 AM EST [facility] Anion Gap 8 5 [...] CHEMISTRY ORDERABL ES [facility] [place] [address] * POC, GLUCOSE (06/20/2024 12:32 AM EST) Glucometer, POC 86 65 - 199 mg/dL 06/20/2024 12:32 AM EST [facility] Comment:Supplemental ranges: <140 mg/dL before meals <180 mg/dL all other times of the day. Blood CAPILLARY BLOOD / Unknown 06/20/2024 12:32 AM EST 06/20/2024 12:32 AM EST Bobby Loja MD POINT OF CARE TEST O NIKA Performing Organization Address City/[facility]/ZIP Co de Phone Number [facility] [place] [address] * (ABNORMAL) POC, GLUCOSE (06/20/2024 12:02 AM [...] Organization Address [facility] Co de Phone Number [facility] [place] [address] * POC, GLUCOSE (06/19/2024 8:15 PM EST) Glucometer, POC 131 65 - 199 mg/dL 06/19/2024 8:15 PM EST [facility] Comment:Supplemental ranges: <140 mg/dL before meals <180 mg/dL all other times of the day. Blood CAPILLARY BLOOD / Unknown 06/19/2024 8:15 PM EST 06/19/2024 8:15 PM EST Bobby Loja MD POINT OF CARE TEST O NIKA Performing Organization Address City/[facility]/ZIP Co de Phone Number [facility] [place] [address] * POC, GLUCOSE (06/19/2024 6:01 PM EST) [...] CARE TEST O RDBECKIE Performing Organization Address City/[facility] Co de Phone Number [facility] [place] [address] * POC, GLUCOSE (06/19/2024 4:51 PM EST) [...] Organization Address [facility] Co de Phone Number [facility] [place] [address] * POC, GLUCOSE (06/19/2024 12:37 PM EST) [...] CARE TEST O NIKA Performing Organization Address City/[facility] Co de Phone Number [facility] [place] [address] * POC, GLUCOSE (06/19/2024 11:20 AM EST) Glucometer, POC 185 65 - 199 mg/dL 06/19/2024 11:21 AM EST [facility] Comment:Supplemental ranges: <140 mg/dL before meals <180 mg/dL all other times of the day. Blood CAPILLARY BLOOD / Unknown 06/19/2024 11:20 AM EST 06/19/2024 11:21 AM EST Bobby Loja MD POINT OF CARE TEST O NIKA Performing Organization Address City/[facility]/ZIP Co de Phone Number [facility] [place] [address] * POC, GLUCOSE (06/19/2024 7:21 AM EST) [...] Organization Address [facility] Co de Phone Number [facility] [place] [address] * POC, GLUCOSE (06/19/2024 4:52 AM EST) Glucometer, POC 125 65 - 199 mg/dL 06/19/2024 4:52 AM EST [facility] Comment:Supplemental ranges: <140 mg/dL before meals <180 mg/dL all other times of the day. Blood CAPILLARY BLOOD / Unknown 06/19/2024 4:52 AM EST 06/19/2024 4:52 AM EST Bobby Loja MD POINT OF CARE TEST O NIKA Performing Organization Address City/[facility]/ZIP Co de Phone Number [facility] [place] [address] * POC, GLUCOSE (06/19/2024 4:13 AM EST) [...] Organization Address [facility] Co de Phone Number [facility] [place] [address] * (ABNORMAL) POC, GLUCOSE (06/19/2024 3:48 AM EST) Glucometer, POC 51(LLL) 65 - 199 mg/dL 06/19/2024 3:48 AM EST [facility] Comment:Supplemental ranges: <140 mg/dL before meals <180 mg/dL all other times of the day. Blood CAPILLARY BLOOD / Unknown 06/19/2024 3:48 AM EST 06/19/2024 3:48 AM EST Bobby Loja MD POINT OF CARE TEST O RDERAPIETER Performing Organization Address City/[facility]/ZIP Co de Phone Number [facility] [place] [address] * (ABNORMAL) Basic Metabolic Panel (06/19/2024 3:44 AM EST) Glucose 53(LLL) 65 - 199 mg/dL 06/19/2024 4:48 AM EST [facility] Comment:Glucose Concentratio n >=200 mg/dL plus symptoms is consistent with Diabetes Mellitus. Blood Urea Nitrogen 42(H) 10 - 20 mg/dL 06/19/2024 4:48 AM EST [facility] Creatinine 1.29 0.80 - 1.50 mg/dL 06/19/2024 4:48 AM EST [facility] Sodium 138 135 - [...] 8.5 - 10.5 mg/dL 06/19/2024 4:48 AM [facility] Est Glomerular Filtration Rate - Male 61 mL/min/1. 73 m?? 06/19/2024 4:48 AM [facility] Comment: This [...] EST 06/19/2024 3:51 AM EST Keila Dayan DRAMATIC CRITIC CHEMISTRY ORDERABL ES [facility] [place] [address] * POC, GLUCOSE (06/19/2024 12:23 AM EST) Glucometer, POC 82 65 - 199 mg/dL 06/19/2024 12:23 AM [facility] Comment:Supplemental ranges: <140 mg/dL before meals <180 mg/dL all other times of the day. Blood CAPILLARY BLOOD / Unknown 06/19/2024 12:23 AM EST 06/19/2024 12:23 AM EST Narrative Authorizing Provider Result Saranya Loja MD POINT OF CARE TEST O NIKA Performing Organization Address City/[facility]/ZIP Co de Phone Number [facility] [place] [address] * POC, GLUCOSE (06/18/2024 11:08 PM EST) [...] Organization Address [facility] Co de Phone Number [facility] [place] [address] * POC, GLUCOSE (06/18/2024 7:32 PM EST) [...] CARE TEST O NIKA Performing Organization Address City/[facility]/ZIP Co de Phone Number [facility] [place] [address] * POC, GLUCOSE (06/18/2024 6:08 PM EST) Glucometer, POC 140 65 - 199 mg/dL 06/18/2024 6:09 PM EST [facility] Comment:Supplemental ranges: <140 mg/dL before meals <180 mg/dL all other times of the day. Blood CAPILLARY BLOOD / Unknown 06/18/2024 6:08 PM EST 06/18/2024 6:09 PM EST Bobby Loja MD POINT OF CARE TEST O NIKA [facility] [place] [address] * POC, GLUCOSE (06/18/2024 4:17 PM EST) [...] Organization Address [facility]/ZIP Co de Phone Number [facility] [place] [address] * POC, GLUCOSE (06/18/2024 12:09 PM EST) Glucometer, POC 180 65 - 199 mg/dL 06/18/2024 12:09 PM EST [facility] Comment:Supplemental ranges: <140 mg/dL before meals <180 mg/dL all other times of the day. Blood CAPILLARY BLOOD / Unknown 06/18/2024 12:09 PM EST 06/18/2024 12:09 PM EST Bobby Loja MD POINT OF CARE TEST O NIKA [facility] [place] [address] * POC, GLUCOSE (06/18/2024 7:49 AM EST) Glucometer, POC 125 65 - 199 mg/dL 06/18/2024 7:50 AM EST [facility] Comment:Supplemental ranges: <140 mg/dL before meals <180 mg/dL all other times of the day. Blood CAPILLARY BLOOD / Unknown 06/18/2024 7:49 AM EST 06/18/2024 7:50 AM EST Bobby Loja MD POINT OF CARE TEST O RDERABLES [facility] [place] [address] * (ABNORMAL) Basic Metabolic Panel (06/18/2024 4:19 [...] mL/min/1. 73 m?? 06/18/2024 5:03 AM EST [facility] Comment: [...] APRN CHEMISTRY ORDERABL ES Performing Organization Address City/[facility]/ZIP Co de Phone Number [facility] [place] [address] * POC, GLUCOSE (06/18/2024 3:50 AM EST) Glucometer, POC 99 65 - 199 mg/dL 06/18/2024 3:51 AM EST [facility] Comment:Supplemental ranges: <140 mg/dL before meals <180 mg/dL all other times of the day. Blood CAPILLARY BLOOD / Unknown 06/18/2024 3:50 AM EST 06/18/2024 3:51 AM EST Bobby Loja MD POINT OF CARE TEST O RDERABLES [facility] [place] [address] * POC, GLUCOSE (06/17/2024 11:10 PM EST) [...] Organization Address [facility] Co de Phone Number [facility] [place] [address] * POC, GLUCOSE (06/17/2024 7:54 PM EST) [...] Organization Address [facility] Co de Phone Number [facility] [place] [address] * POC, GLUCOSE (06/17/2024 4:07 PM EST) [...] CARE TEST O NIKA Performing Organization Address City/[facility] Co de Phone Number [facility] [place] [address] * XR Chest PA & Lateral (Generic) (06/17/2024 1:46 PM EST) WORKSTATION ID [id number] RAD Anatomical Region Laterality Modality Chest N/A [...] who have questions please contact the health pet care attendant that requested your imaging first. ? Electronically signed by: Josselyn Spence MD, [facility] ([phone]), at 06/17/2024 4:49 PM Narrative 06/17/2024 4:49 [...] patients who have questions please contactthe health pet care attendant that requested your imaging first. Electronically signed by: Josselyn Spence MD, [facility]([phone]), at 06/17/2024 4:49 PM Keila Hanley DRAMATIC CRITIC IMG DX ORDERABLES * (ABNORMAL) POC, GLUCOSE [...] CARE TEST O NIKA Performing Organization Address City/[facility]/ZIP Co de Phone Number [facility] [place] [address] * POC, GLUCOSE (06/17/2024 7:49 AM EST) Glucometer, POC 141 65 - 199 mg/dL 06/17/2024 7:55 AM EST [facility] Comment:Supplemental ranges: <140 mg/dL before meals <180 mg/dL all other times of the day. Blood CAPILLARY BLOOD / Unknown 06/17/2024 7:49 AM EST 06/17/2024 7:55 AM EST Bobby Loja MD POINT OF CARE TEST O NIKA [facility] [place] [address] * POC, GLUCOSE (06/17/2024 4:16 AM EST) Pathologist [facility] Glucometer, POC 139 65 - 199 mg/dL 06/17/2024 4:16 AM EST [facility] Comment:Supplemental ranges: <140 mg/dL before meals <180 mg/dL all other times of the day. Blood CAPILLARY BLOOD / Unknown 06/17/2024 4:16 AM EST 06/17/2024 4:17 AM EST Bobby Loja MD POINT OF CARE TEST O RDERABLES Performing Organization Address City/[facility]/ZIP Co de Phone Number [facility] [place] [address] * Lactate, Whole Blood (06/17/2024 2:39 AM EST) [facility] Lactate, Whole Blood 1.3 0.5 - 2.2 mmol/L 06/17/2024 2:46 AM EST [facility] Blood VENOUS BLOOD SPECIMEN / Unknown Venipuncture / Unknown 06/17/2024 2:39 AM EST 06/17/2024 2:43 AM EST Bobby Loja MD CHEMISTRY ORDERABLES [facility] [place] [address] * (ABNORMAL) Hemogram (06/17/2024 2:39 AM EST) [facility] White Blood Cell 13.53(H) 4.00 - 9.50 x10(3)/mc L 06/17/2024 2:53 AM EST [facility] Red Blood Cell 3.55(L) 4.58 - 5.54 x10(6)/mc L 06/17/2024 2:53 AM EST [facility] Hemoglobin 10.8(L) 13.7 - 16.5 g/dL 06/17/2024 2:53 AM EST [facility] Hematocrit 33.0(L) 40.5 - [...] HEMATOLOGY ORDERABLE S [facility] [place] [address] * (ABNORMAL) Basic Metabolic Panel (06/17/2024 2:39 [...] 98 - 107 mMol/L 06/17/2024 3:14 AM [facility] Carbon Dioxide 23 22 - 31 mMol/L 06/17/2024 3:14 AM [facility] Anion Gap 9 5 - 15 mMol/L 06/17/2024 3:14 AM [facility] Calcium 8.8 8.5 - 10.5 mg/dL 06/17/2024 3:14 AM [facility] Est Glomerular Filtration Rate - Male 50 mL/min/1. 73 m?? 06/17/2024 3:14 AM [facility] Comment: This [...] MD CHEMISTRY ORDERABLES [facility] [place] [address] * (ABNORMAL) POC, GLUCOSE (06/17/2024 12:13 AM EST) Glucometer, POC 211(H) 65 - 199 mg/dL 06/17/2024 12:13 AM EST [facility] Comment:Supplemental ranges: <140 mg/dL before meals <180 mg/dL all other times of the day. Blood CAPILLARY BLOOD / Unknown 06/17/2024 12:13 AM EST 06/17/2024 12:14 AM EST Bobby Loja MD POINT OF CARE TEST O NIKA Performing Organization Address City/[facility] Co de Phone Number [facility] [place] [address] * (ABNORMAL) POC, GLUCOSE (06/16/2024 7:22 PM EST) Glucometer, POC 229(H) 65 - 199 mg/dL 06/16/2024 7:22 PM EST [facility] Comment:Supplemental ranges: <140 mg/dL before meals <180 mg/dL all other times of the day. Blood CAPILLARY BLOOD / Unknown 06/16/2024 7:22 PM EST 06/16/2024 7:22 PM EST Bobby Loja MD POINT OF CARE TEST O NIKA [facility] [place] [address] * (ABNORMAL) POC, GLUCOSE (06/16/2024 6:14 PM [...] Organization Address [facility] Co de Phone Number [facility] [place] [address] * Lactate, Whole Blood (06/16/2024 6:14 PM EST) Lactate, Whole Blood 1.8 0.5 - 2.2 mmol/L 06/16/2024 6:27 PM EST [facility] Blood VENOUS BLOOD SPECIMEN / Unknown Venipuncture / Unknown 06/16/2024 6:14 PM EST 06/16/2024 6:25 PM EST Bobby Loja MD CHEMISTRY ORDERABLES Performing Organization Address [facility] Phone Number [facility] [place] [address] * (ABNORMAL) POC, GLUCOSE (06/16/2024 4:14 PM [...] Organization Address [facility] Co de Phone Number [facility] [place] [address] * POC, GLUCOSE (06/16/2024 11:49 AM EST) Glucometer, POC 199 65 - 199 mg/dL 06/16/2024 11:49 AM EST [facility] Comment:Supplemental ranges: <140 mg/dL before meals <180 mg/dL all other times of the day. Blood CAPILLARY BLOOD / Unknown 06/16/2024 11:49 AM EST 06/16/2024 11:49 AM EST Bobby Loja MD POINT OF CARE TEST O RDERABLES [facility] [place] [address] * (ABNORMAL) Hemogram (06/16/2024 11:44 AM EST) [...] - 13.8 % 06/16/2024 12:25 PM EST [facility] NRBC% auto 0.0 % 06/16/2024 12:25 PM EST [facility] NRBC Absolute <0.01 <0.01 x10(3)/mc L 06/16/2024 12:25 PM EST [facility] Blood VENOUS BLOOD SPECIMEN / Unknown Venipuncture / Unknown 06/16/2024 11:44 AM EST 06/16/2024 12:03 PM EST Bobby Loja MD HEMATOLOGY ORDERABLE S Performing Organization Address [facility]/ZIP Co de Phone Number [facility] [place] [address] * Lactate, Whole Blood (06/16/2024 9:02 AM EST) Lactate, Whole Blood 1.8 0.5 - 2.2 mmol/L 06/16/2024 9:19 AM EST [facility] Blood VENOUS BLOOD SPECIMEN / Unknown Venipuncture / Unknown 06/16/2024 9:02 AM EST 06/16/2024 9:17 AM EST Bobby Loja MD CHEMISTRY ORDERABLES Performing Organization Address [facility] Co de Phone Number [facility] [place] [address] * POC, GLUCOSE (06/16/2024 7:44 AM EST) Glucometer, POC 129 65 - 199 mg/dL 06/16/2024 7:44 AM EST [facility] Comment:Supplemental ranges: <140 mg/dL before meals <180 mg/dL all other times of the day. Blood CAPILLARY BLOOD / Unknown 06/16/2024 7:44 AM EST 06/16/2024 7:44 AM EST Bobby Loja MD POINT OF CARE TEST O RDERABLES [facility] [place] [address] * POC, GLUCOSE (06/16/2024 4:01 AM EST) Glucometer, POC 158 65 - 199 mg/dL 06/16/2024 4:01 AM EST [facility] Comment:Supplemental ranges: <140 mg/dL before meals <180 mg/dL all other times of the day. Blood CAPILLARY BLOOD / Unknown 06/16/2024 4:01 AM EST 06/16/2024 4:01 AM EST Bobby Loja MD POINT OF CARE TEST O RDERAPIETER [facility] [place] [address] * (ABNORMAL) Basic Metabolic Panel (06/16/2024 2:23 [...] - 10.5 mg/dL 06/16/2024 3:13 AM EST [facility] Est Glomerular Filtration Rate - Male 34 mL/min/1. 73 m?? 06/16/2024 3:13 AM EST [facility] Comment: [...] Loja MD CHEMISTRY ORDERABLES Performing Organization Address City/[facility]/ZIP Co de Phone Number [facility] [place] [address] * POC, GLUCOSE (06/16/2024 2:21 AM EST) Glucometer, POC 176 65 - 199 mg/dL 06/16/2024 2:31 AM EST [facility] Comment:Supplemental ranges: <140 mg/dL before meals <180 mg/dL all other times of the day. Blood CAPILLARY BLOOD / Unknown 06/16/2024 2:21 AM EST 06/16/2024 2:31 AM EST Bobby Loja MD POINT OF CARE TEST O RDERABLES Performing Organization Address City/[facility]/ZIP Co de Phone Number [facility] [place] [address] * (ABNORMAL) POC, GLUCOSE (06/16/2024 12:09 AM [...] Organization Address [facility] Co de Phone Number [facility] [place] [address] * (ABNORMAL) POC, GLUCOSE (06/15/2024 10:07 PM [...] Organization Address [facility] Co de Phone Number [facility] [place] [address] * (ABNORMAL) POC, GLUCOSE (06/15/2024 7:56 PM EST) Glucometer, POC 304(H) 65 - 199 mg/dL 06/15/2024 7:56 PM EST [facility] Comment:Supplemental ranges: <140 mg/dL before meals <180 mg/dL all other times of the day. Blood CAPILLARY BLOOD / Unknown 06/15/2024 7:56 PM EST 06/15/2024 7:56 PM EST Bobby Loja MD POINT OF CARE TEST Abimael MAHER Performing Organization Address City/[facility] Co de Phone Number [facility] [place] [address] * (ABNORMAL) POC, GLUCOSE (06/15/2024 7:52 PM EST) Glucometer, POC 288(H) 65 - 199 mg/dL 06/15/2024 7:52 PM EST [facility] Comment:Supplemental ranges: <140 mg/dL before meals <180 mg/dL all other times of the day. Blood CAPILLARY BLOOD / Unknown 06/15/2024 7:52 PM EST 06/15/2024 7:52 PM EST Bobby Loja MD POINT OF CARE TEST O NIKA Performing Organization Address City/[facility]/ZIP Co de Phone Number [facility] [place] [address] * POC, GLUCOSE (06/15/2024 4:21 PM EST) Glucometer, POC 192 65 - 199 mg/dL 06/15/2024 4:21 PM EST [facility] Comment:Supplemental ranges: <140 mg/dL before meals <180 mg/dL all other times of the day. Blood CAPILLARY BLOOD / Unknown 06/15/2024 4:21 PM EST 06/15/2024 4:21 PM EST Bobby Loja MD POINT OF CARE TEST O NIKA [facility] [place] [address] * POC, GLUCOSE (06/15/2024 3:27 PM EST) [...] Organization Address [facility] Co de Phone Number [facility] [place] [address] * POC, GLUCOSE (06/15/2024 2:23 PM EST) [...] Organization Address [facility] Co de Phone Number [facility] [place] [address] * POC, GLUCOSE (06/15/2024 1:26 PM EST) Glucometer, POC 167 65 - 199 mg/dL 06/15/2024 1:26 PM EST [facility] Comment:Supplemental ranges: <140 mg/dL before meals <180 mg/dL all other times of the day. Blood CAPILLARY BLOOD / Unknown 06/15/2024 1:26 PM EST 06/15/2024 1:26 PM EST Bobby Loja MD POINT OF CARE TEST O NIKA Performing Organization Address City/[facility] Co de Phone Number [facility] [place] [address] * (ABNORMAL) POC, GLUCOSE (06/15/2024 12:55 PM EST) Glucometer, POC 210(H) 65 - 199 mg/dL 06/15/2024 12:55 PM EST [facility] Comment:Supplemental ranges: <140 mg/dL before meals <180 mg/dL all other times of the day. Blood CAPILLARY BLOOD / Unknown 06/15/2024 12:55 PM EST 06/15/2024 12:55 PM EST Bobby Loja MD POINT OF CARE TEST Abimael MAHER Performing Organization Address City/[facility]/ZIP Co de Phone Number [facility] [place] [address] * (ABNORMAL) POC, GLUCOSE (06/15/2024 11:29 AM EST) Glucometer, POC 220(H) 65 - 199 mg/dL 06/15/2024 11:29 AM EST [facility] Comment:Supplemental ranges: <140 mg/dL before meals <180 mg/dL all other times of the day. Blood CAPILLARY BLOOD / Unknown 06/15/2024 11:29 AM EST 06/15/2024 11:29 AM EST Bobby Loja MD POINT OF CARE TEST Abimael MAHER Performing Organization Address City/[facility] Co de Phone Number [facility] [place] [address] * (ABNORMAL) Basic Metabolic Panel (06/15/2024 11:23 AM EST) Glucose 215(H) 65 - 199 mg/dL 06/15/2024 12:08 PM EST [facility] Comment:Glucose Concentratio n >=200 mg/dL plus symptoms is consistent with Diabetes Mellitus. Blood Urea Nitrogen 24(H) 10 - 20 mg/dL 06/15/2024 12:08 PM [facility] Creatinine 1.54(H) 0.80 - 1.50 mg/dL 06/15/2024 12:08 PM EST [facility] Sodium 135 135 - 145 mMol/L 06/15/2024 12:08 PM [facility] Potassium 4.5 3.5 - 5.0 mMol/L 06/15/2024 12:08 PM [facility] Chloride 105 98 - 107 mMol/L 06/15/2024 12:08 PM [facility] Carbon Dioxide 19(L) 22 - 31 mMol/L 06/15/2024 12:08 PM EST [facility] Anion Gap 11 5 - 15 mMol/L 06/15/2024 12:08 PM EST [facility] Calcium 8.3(L) 8.5 - 10.5 mg/dL 06/15/2024 12:08 PM EST [facility] Est Glomerular Filtration Rate - Male 49 mL/min/1. 73 m?? 06/15/2024 12:08 PM EST [facility] Comment: This [...] Loja MD CHEMISTRY ORDERABLES Performing Organization Address City/[facility]/ZIP Co de Phone Number [facility] [place] [address] * POC, GLUCOSE (06/15/2024 10:29 AM EST) [facility] Signature Glucometer, POC 189 65 - 199 mg/dL 06/15/2024 10:29 AM EST [facility] Comment:Supplemental ranges: <140 mg/dL before meals <180 mg/dL all other times of the day. Blood CAPILLARY BLOOD / Unknown 06/15/2024 10:29 AM EST 06/15/2024 10:29 AM EST Bobby Loja MD POINT OF CARE TEST O RDERABLES [facility] [place] [address] * POC, GLUCOSE (06/15/2024 9:45 AM EST) Glucometer, POC 178 65 - 199 mg/dL 06/15/2024 9:45 AM [facility] Comment:Supplemental ranges: <140 mg/dL before meals <180 mg/dL all other times of the day. Blood CAPILLARY BLOOD / Unknown 06/15/2024 9:45 AM EST 06/15/2024 9:45 AM EST Bobby Loja MD POINT OF CARE TEST Abimael MAHER Performing Organization Address City/[facility]/ZIP Co de Phone Number [facility] [place] [address] * (ABNORMAL) Cooximetry, POC (06/15/2024 9:31 AM [...] Organization Address [facility]/ZIP Co de Phone Number [facility] [place] [address] * Cooximetry, POC (06/15/2024 9:22 AM EST) [...] Organization Address [facility] Co de Phone Number [facility] [place] [address] * (ABNORMAL) Blood Gas, Arterial POC (06/15/2024 [...] TEST O RDERABLES [facility] [place] [address] * (ABNORMAL) POC, GLUCOSE (06/15/2024 8:37 AM EST) Glucometer, POC 204(H) 65 - 199 mg/dL 06/15/2024 8:37 AM EST [facility] Comment:Supplemental ranges: <140 mg/dL before meals <180 mg/dL all other times of the day. Blood CAPILLARY BLOOD / Unknown 06/15/2024 8:37 AM EST 06/15/2024 8:37 AM EST Bobby Loja MD POINT OF CARE TEST O NIKA Performing Organization Address City/[facility]/ZIP Co de Phone Number [facility] [place] [address] * POC, GLUCOSE (06/15/2024 7:37 AM EST) Glucometer, POC 199 65 - 199 mg/dL 06/15/2024 7:37 AM EST [facility] Comment:Supplemental ranges: <140 mg/dL before meals <180 mg/dL all other times of the day. Blood CAPILLARY BLOOD / Unknown 06/15/2024 7:37 AM EST 06/15/2024 7:38 AM EST Bobby Loja MD POINT OF CARE TEST Abimael MAHER Performing Organization Address City/[facility]/ZIP Co de Phone Number [facility] [place] [address] * (ABNORMAL) POC, GLUCOSE (06/15/2024 7:01 AM EST) Glucometer, POC 203(H) 65 - 199 mg/dL 06/15/2024 7:01 AM EST [facility] Comment:Supplemental ranges: <140 mg/dL before meals <180 mg/dL all other times of the day. Blood CAPILLARY BLOOD / Unknown 06/15/2024 7:01 AM EST 06/15/2024 7:01 AM EST Bobby Loja MD POINT OF CARE TEST O RDERABLES [facility] [place] [address] * XR Chest One View (06/15/2024 6:31 AM EST) WORKSTATION ID [id number] RAD Anatomical Region Laterality Modality Chest N/A [...] who have questions please contact the health pet care attendant that requested your imaging first. ? Narrative [...] patients who have questions please contactthe health pet care attendant that requested your imaging first. Electronically signed by: Stuart Aponte MD, [facility]([phone]), at 06/15/2024 10:38 AM Bobby Loja MD [...] TEST O RDERABLES [facility] [place] [address] * POC, GLUCOSE (06/15/2024 5:06 AM EST) [...] Organization Address [facility] Co de Phone Number [facility] [place] [address] * POC, GLUCOSE (06/15/2024 4:05 AM EST) [...] Organization Address [facility] Co de Phone Number [facility] [place] [address] * POC, GLUCOSE (06/15/2024 3:07 AM EST) [...] Organization Address [facility] Co de Phone Number [facility] [place] [address] * (ABNORMAL) Basic Metabolic Panel (06/15/2024 1:48 AM EST) Glucose 140 65 - 199 mg/dL 06/15/2024 2:38 AM EST [facility] Comment:Glucose [...] 22 - 31 mMol/L 06/15/2024 2:38 AM [facility] Anion Gap [...] MD CHEMISTRY ORDERABLES [facility] [place] [address] * (ABNORMAL) CBC (with Diff) (06/15/2024 1:48 AM EST) White Blood Cell 11.71(H) 4.00 - 9.50 x10(3)/mc L 06/15/2024 2:13 AM [facility] Red Blood Cell 4.14(L) 4.58 - 5.54 x10(6)/mc L 06/15/2024 2:13 AM [facility] Hemoglobin 12.5(L) 13.7 - [...] Monocyte % 11.4 % 06/15/2024 2:13 AM [facility] Monocyte Absolute 1.33(H) 0.30 - 0.90 x10(3)/mc L 06/15/2024 2:13 AM [facility] Eos % 0.2 % 06/15/2024 2:13 AM [facility] Eos Absolute <0.04 0.00 - 0.40 x10(3)/mc L 06/15/2024 2:13 AM [facility] Basophil % 0.2 % 06/15/2024 2:13 AM [facility] Baso Absolute <0.04 0.00 [...] HEMATOLOGY ORDERABLE S [facility] [place] [address] * (ABNORMAL) Troponin - Single (06/15/2024 1:48 [...] troponin value can be found in the [facility] Test Catalog Troponin - [email or web address] Reference: Fourth Proctor Definition of Myocardial Infarction. Journal of the [employer] 2018;72:0681-2473 Blood VENOUS BLOOD SPECIMEN / Unknown Venipuncture / Unknown 06/15/2024 1:48 AM EST 06/15/2024 1:52 AM EST Bobby Loja MD CHEMISTRY ORDERABLES [facility] [place] [address] * (ABNORMAL) Blood Gas, Arterial POC (06/15/2024 1:46 AM EST) pH, Arterial 7.33(L) 7.35 - 7.45 06/15/2024 1:47 AM EST [facility] PCO2, Arterial 40 35 - 45 mmHg 06/15/2024 1:47 AM [facility] PO2, Arterial 131(H) 85 - 104 mmHg 06/15/2024 1:47 AM [facility] Bicarbonate, Arterial 20.7 20.0 - 26.0 mmol/L 06/15/2024 1:47 AM [facility] Base Excess, Arterial -5.2(L) -3.0 - 3.0 mmol/L 06/15/2024 1:47 AM [facility] Hemoglobin, Arterial 13.4(L) 13.7 [...] - 1.33 mmol/L 06/15/2024 1:47 AM EST [facility] Glucose, Arterial 127 65 - 199 mg/dL 06/15/2024 1:47 AM EST [facility] Comment:Glucose Concentratio n >=200 mg/dL plus symptoms is consistent with Diabetes Mellitus. Blood ARTERIAL BLOOD / Unknown 06/15/2024 1:46 AM EST 06/15/2024 1:47 AM EST Bobby Loja MD POINT OF CARE TEST O RDERAPIETER Performing Organization Address [facility] Co de Phone Number [facility] [place] [address] * POC, GLUCOSE (06/15/2024 1:05 AM EST) [...] Organization Address [facility] Co de Phone Number [facility] [place] [address] * POC, GLUCOSE (06/15/2024 12:16 AM EST) Glucometer, POC 135 65 - 199 mg/dL 06/15/2024 12:16 AM EST [facility] Comment:Supplemental ranges: <140 mg/dL before meals <180 mg/dL all other times of the day. Blood CAPILLARY BLOOD / Unknown 06/15/2024 12:16 AM EST 06/15/2024 12:16 AM EST Bobby Loja MD POINT OF CARE TEST O RDERAPIETER [facility] [place] [address] * Potassium (06/14/2024 11:28 PM EST) Potassium 4.1 3.5 - 5.0 mMol/L 06/14/2024 11:54 PM EST [facility] Blood VENOUS BLOOD SPECIMEN / Unknown Venipuncture / Unknown 06/14/2024 11:28 PM EST 06/14/2024 11:34 PM EST Bobby Loja MD CHEMISTRY ORDERABLES Performing Organization Address [facility] Co de Phone Number [facility] [place] [address] * POC, GLUCOSE (06/14/2024 10:58 PM EST) [...] Organization Address [facility] Co de Phone Number [facility] [place] [address] * POC, GLUCOSE (06/14/2024 9:55 PM EST) [...] CARE TEST O RDERABLES Performing Organization Address City/State/[facility] Co de Phone Number [facility] [place] [address] * POC, GLUCOSE (06/14/2024 8:54 PM EST) Glucometer, POC 151 65 - 199 mg/dL 06/14/2024 8:54 PM EST [facility] Comment:Supplemental ranges: <140 mg/dL before meals <180 mg/dL all other times of the day. Blood CAPILLARY BLOOD / Unknown 06/14/2024 8:54 PM EST 06/14/2024 8:54 PM EST Bboby Loja MD POINT OF CARE TEST O NIKA Performing Organization Address [facility] Co de Phone Number [facility] [place] [address] * POC, GLUCOSE (06/14/2024 7:51 PM EST) Glucometer, POC 169 65 - 199 mg/dL 06/14/2024 7:52 PM EST [facility] Comment:Supplemental ranges: <140 mg/dL before meals <180 mg/dL all other times of the day. Blood CAPILLARY BLOOD / Unknown 06/14/2024 7:51 PM EST 06/14/2024 7:52 PM EST Bobby Loja MD POINT OF CARE TEST O RDBECKIE Performing Organization Address City/[facility] Co de Phone Number [facility] [place] [address] * POC, GLUCOSE (06/14/2024 6:49 PM EST) Glucometer, POC 194 65 - 199 mg/dL 06/14/2024 6:50 PM EST [facility] Comment:Supplemental ranges: <140 mg/dL before meals <180 mg/dL all other times of the day. Blood CAPILLARY BLOOD / Unknown 06/14/2024 6:49 PM EST 06/14/2024 6:50 PM EST Bobby Loja MD POINT OF CARE TEST O RDERABLES Performing Organization Address City/[facility]/ZIP Co de Phone Number [facility] [place] [address] * (ABNORMAL) Hemoglobin (06/14/2024 6:19 PM EST) Hemoglobin 13.1(L) 13.7 - 16.5 g/dL 06/14/2024 7:08 PM EST [facility] Blood VENOUS BLOOD SPECIMEN / Unknown Venipuncture / Unknown 06/14/2024 6:19 PM EST 06/14/2024 6:28 PM EST Bobby Loja MD HEMATOLOGY ORDERABLE S Performing Organization Address [facility] Co de Phone Number [facility] [place] [address] * Potassium (06/14/2024 6:19 PM EST) Potassium 3.9 3.5 - 5.0 mMol/L 06/14/2024 6:52 PM EST [facility] Blood VENOUS BLOOD SPECIMEN / Unknown Venipuncture / Unknown 06/14/2024 6:19 PM EST 06/14/2024 6:28 PM EST Bobby Loja MD CHEMISTRY ORDERABLES Performing Organization Address City/[facility]/ZIP Co de Phone Number [facility] [place] [address] * (ABNORMAL) POC, GLUCOSE (06/14/2024 6:03 PM EST) Glucometer, POC 201(H) 65 - 199 mg/dL 06/14/2024 6:03 PM EST [facility] Comment:Supplemental ranges: <140 mg/dL before meals <180 mg/dL all other times of the day. Blood CAPILLARY BLOOD / Unknown 06/14/2024 6:03 PM EST 06/14/2024 6:03 PM EST Bobby Loja MD POINT OF CARE TEST O RDERABLES [facility] [place] [address] * (ABNORMAL) Blood Gas, Arterial POC (06/14/2024 4:51 PM EST) pH, Arterial 7.32(L) 7.35 - 7.45 06/14/2024 4:52 PM EST [facility] PCO2, Arterial 46(H) 35 - 45 mmHg 06/14/2024 4:52 PM [facility] PO2, Arterial 85 85 [...] 0.0 <=1.5 % 06/14/2024 4:52 PM EST [facility] Sodium, Arterial 138 135 - 145 mmol/L 06/14/2024 4:52 PM [facility] Potassium, Arterial 4.1 3.5 - 5.0 mmol/L 06/14/2024 4:52 PM [facility] Chloride, Arterial 106 98 - 107 mmol/L 06/14/2024 4:52 PM EST [facility] Lactate, Arterial 1.3 0.5 - 2.2 mmol/L 06/14/2024 4:52 PM [facility] Fraction of Inspired Oxygen 40 % 06/14/2024 4:52 PM [facility] PF Ratio 213 Ratio 06/14/2024 4:52 PM [facility] Comment:PF ratio calculated using the non-temperature corrected pO2 result. IONIZED CALCIUM, ARTERIAL 1.16 1.15 - 1.33 mmol/L 06/14/2024 4:52 PM [facility] Glucose, Arterial 192 65 - 199 mg/dL 06/14/2024 4:52 PM [facility] Comment:Glucose Concentratio n >=200 mg/dL plus symptoms is consistent with Diabetes Mellitus. Blood ARTERIAL BLOOD / Unknown 06/14/2024 4:51 PM EST 06/14/2024 4:52 PM EST Bobby Loja MD POINT [place] [address] * POC, GLUCOSE (06/14/2024 4:00 PM EST) Glucometer, POC 184 65 - 199 mg/dL 06/14/2024 4:01 PM EST [facility] Comment:Supplemental ranges: <140 mg/dL before meals <180 mg/dL all other times of the day. Blood CAPILLARY BLOOD / Unknown 06/14/2024 4:00 PM EST 06/14/2024 4:01 PM EST Bobby Loja MD POINT OF CARE TEST O RALPHERAPIETER [facility] [place] [address] * XR Chest One View (06/14/2024 3:05 PM EST) WORKSTATION ID [id number] RAD Anatomical Region Laterality Modality Chest N/A [...] who have questions please contact the health pet care attendant that requested your imaging first. ? Electronically signed by: Stuart Aponte MD, [facility] ??([phone]), at 06/14/2024 4:07 PM Narrative 06/14/2024 4:07 [...] patients who have questions please contactthe health pet care attendant that requested your imaging first. Electronically signed by: Stuart Aponte MD, [facility]([phone]), at 06/14/2024 4:07 PM Bobby Loja MD [...] Arterial 0.1 <=1.5 % 06/14/2024 2:53 PM [facility] Sodium, Arterial [...] TEST O RDERABLES [facility] [place] [address] * EKG 12 Lead (06/14/2024 2:46 PM EST) Ventricular rate 80 BPM MUSE SYSTEM Atrial Rate 80 BPM MUSE SYSTEM P-R Interval 120 ms MUSE SYSTEM QRS Duration 108 ms MUSE SYSTEM Q-T Interval 454 ms MUSE SYSTEM QTC Calculated (Bezet) 523 ms MUSE SYSTEM Calculated P Isabel 70 degrees MUSE SYSTEM Calculated R Isabel 56 degrees MUSE SYSTEM Calculated T Isabel 50 degrees MUSE SYSTEM INTERPRETATION AV dual-paced rhythm Abnormal ECG When compared with ECG of 03-JUN-2024 01:45, Vent. rate has increased BY ??17 BPM Confirmed by MD Marisol, Shaheen ([id number]) on 06/15/2024 1:57:23 PM MUSE SYSTEM 06/14/2024 2:46 PM EST 06/15/2024 1:57 PM EST Bobby Loja MD ECG ORDERABLES MUSE SYSTEM * Prepare RBC (06/14/2024 2:27 PM EST) Status Information Returned [facility] Product Identification RBC [facility] Unit Number [id number] [facility] Product Code [id number] [facility] Unit Blood Type OPOS [facility] Specimen Expiration Date [facility] Volulme 350 [facility] Issue Date / Time [facility] Status Information Returned [facility] Product Identification RBC [facility] Unit Number [id number] [facility] Product Code [id number] [facility] Unit Blood Type OPOS [facility] Specimen Expiration Date [facility] Volulme 350 [facility] Issue Date / Time [facility] Blood 06/14/2024 6:2 5 AM EST Haja Byrnes MD BLOOD BANK PRODUCT O RDERABLES [facility] [place] [place] [address] * (ABNORMAL) Cooximetry, POC (06/14/2024 1:52 PM EST) pO2, Coox 58 mmHg 06/14/2024 1:55 PM EST [facility] Hemoglobin, Coox 12.6(L) 13.7 - 16.5 g/dL 06/14/2024 1:55 PM EST [facility] Oxyhemoglobin, Coox 85.5 % 06/14/2024 1:55 PM EST [facility] Carboxyhemoglo bin, Coox 0.3 % 06/14/2024 1:55 PM EST [facility] Comment: Nonsmokers: 0.5-1.5% COHB ?? Smokers: Variable ??but usually less than 10% ?? Toxic: 20-30% COHB ?? Lethal: Greater than 60% COHB Methemoglobin, Coox 0.6 <=1.5 % 06/14/2024 1:55 PM EST [facility] Blood (Mixed Venous) 06/14/2024 1:52 PM EST 06/14/2024 1:55 PM EST Haja Byrnes MD POINT OF CARE TEST O RDERABLES [facility] [place] [address] * (ABNORMAL) Blood Gas, Arterial POC (06/14/2024 12:47 PM EST) pH, Arterial 7.33(L) 7.35 - 7.45 06/14/2024 12:48 PM EST [facility] PCO2, [...] 94.0 - 97.0 % 06/14/2024 12:48 PM [facility] Carboxyhemoglobin , Arterial 0.3 % 06/14/2024 12:48 PM [facility] Comment: Nonsmokers: 0.5-1.5% COHB ?? Smokers: Variable ??but usually less than 10% ?? Toxic: 20-30% COHB ?? Lethal: Greater than 60% COHB Methemoglobin, Arterial 0.5 <=1.5 % 06/14/2024 12:48 PM [facility] Sodium, Arterial 135 [...] 65 - 199 mg/dL 06/14/2024 12:48 PM [facility] Comment:Glucose Concentratio n >=200 mg/dL plus symptoms is consistent with Diabetes Mellitus. Blood ARTERIAL BLOOD / Unknown 06/14/2024 12:47 PM EST 06/14/2024 12:48 PM EST Haja Byrnes MD POINT OF CARE TEST O RDERABLES Performing Organization Address City/[facility]/ZIP Co de Phone Number [facility] [place] [address] * (ABNORMAL) Cooximetry, POC (06/14/2024 12:42 PM [...] CARE TEST O RDERABLES Performing Organization Address City/[facility]/ZIP Co de Phone Number [facility] [place] [address] * (ABNORMAL) Platelet count (06/14/2024 12:30 PM EST) Platelet 73(L) 145 - 357 x10(3)/mcL 06/14/2024 12:54 PM EST [facility] Blood ARTERIAL BLOOD / Unknown 06/14/2024 12:30 PM EST Comment:Pre-op diagnosis: CAD Bobby Loja MD HEMATOLOGY ORDERABLE S Performing Organization Address [facility]/State/ZIP Co de Phone Number [facility] [place] [address] * (ABNORMAL) Hemoglobin and Hematocrit, blood (06/14/2024 [...] Organization Address [facility] Co de Phone Number [facility] [place] [address] * APTT (06/14/2024 12:30 PM EST) Partial [...] HEMATOLOGY ORDERABLE S [facility] [place] [address] * (ABNORMAL) Prothrombin Time (06/14/2024 12:30 PM EST) Pathologist [facility] Prothrombin Time 16.8(H) 9.4 - 12.5 sec [...] Organization Address [facility] Co de Phone Number [facility] [place] [address] * Fibrinogen (06/14/2024 12:30 PM EST) [facility] Fibrinogen 211 200 - 393 mg/dL 06/14/2024 12:57 PM EST [facility] Comment: A fibrinogen level >100 mg/dL is adequate for hemostasis in most patients without underlying bleeding disorders. Blood ARTERIAL BLOOD / Unknown 06/14/2024 12:30 PM EST 06/14/2024 12:42 PM EST Comment:Pre-op diagnosis: CAD Bobby Loja MD HEMATOLOGY ORDERABLE S [facility] [place] [address] * (ABNORMAL) Blood Gas, Arterial POC (06/14/2024 12:15 PM EST) pH, Arterial 7.38 7.35 - 7.45 06/14/2024 12:16 PM [facility] PCO2, Arterial 40 35 - 45 mmHg 06/14/2024 12:16 PM [facility] Bicarbonate, Arterial 22.9 20.0 - 26.0 mmol/L 06/14/2024 12:16 PM [facility] Base Excess, Arterial -2.3 -3.0 - 3.0 mmol/L 06/14/2024 12:16 PM [facility] Hemoglobin, Arterial 11.4(L) 13.7 [...] - 199 mg/dL 06/14/2024 12:16 PM EST [facility] Comment:Glucose Concentratio n >=200 mg/dL plus symptoms is consistent with Diabetes Mellitus. Blood ARTERIAL BLOOD / Unknown 06/14/2024 12:15 PM EST 06/14/2024 12:16 PM EST Haja Byrnes MD POINT OF CARE TEST O RDERABLES [facility] [place] [address] * (ABNORMAL) Blood Gas, Arterial POC (06/14/2024 [...] TEST O RDERABLES [facility] [place] [address] * (ABNORMAL) Blood Gas, Arterial POC (06/14/2024 [...] TEST O RDERABLES [facility] [place] [address] * (ABNORMAL) Scan, Peripheral Blood (06/14/2024 11:23 AM EST) RBC Morphology Abnormal 06/14/2024 11:59 AM EST [facility] Platelet Estimate Decreased(A) Normal 06/14/2024 11:59 AM EST [facility] Aretha cells 1-5 /HPF 06/14/2024 11:59 AM EST [facility] Blood ARTERIAL BLOOD / Unknown 06/14/2024 11:23 AM EST 06/14/2024 11:27 AM EST Bobby Loja MD HEMATOLOGY ORDERABLE S Performing Organization Address [facility]/ZIP Co de Phone Number [facility] [place] [address] * (ABNORMAL) Platelet count (06/14/2024 11:23 AM EST) Platelet 86(L) 145 - 357 x10(3)/mcL 06/14/2024 11:59 AM EST [facility] Blood ARTERIAL BLOOD / Unknown 06/14/2024 11:23 AM EST Comment:Pre-op diagnosis: CAD Bobby Loja MD HEMATOLOGY ORDERABLE S [facility] [place] [address] * (ABNORMAL) Hemoglobin and Hematocrit, blood (06/14/2024 [...] HEMATOLOGY ORDERABLE S [facility] [place] [address] * (ABNORMAL) Blood Gas, Arterial POC (06/14/2024 [...] TEST O RDERABLES [facility] [place] [address] * (ABNORMAL) Blood Gas, Arterial POC (06/14/2024 10:26 AM EST) pH, Arterial 7.29(LLL) 7.35 - 7.45 06/14/2024 10:27 AM EST [facility] PCO2, Arterial 43 35 [...] TEST O RDERABLES [facility] [place] [address] * (ABNORMAL) Blood Gas, Arterial POC (06/14/2024 [...] - 2.2 mmol/L 06/14/2024 10:26 AM EST [facility] IONIZED CALCIUM, ARTERIAL 0.91(LLL) 1.15 - 1.33 mmol/L 06/14/2024 10:26 AM EST [facility] Glucose, Arterial 148 65 - 199 mg/dL 06/14/2024 10:26 AM EST [facility] Comment:Glucose Concentratio n >=200 mg/dL plus symptoms is consistent with Diabetes Mellitus. Blood ARTERIAL BLOOD / Unknown 06/14/2024 10:25 AM EST 06/14/2024 10:26 AM EST Haja Byrnes MD POINT OF CARE TEST O RDERABLES [facility] [place] [address] * Surgical Pathology (06/14/2024 9:53 AM EST) Case Report Surgical Pathology Report ? Case: [id number] ? Authorizing Provider: ??Bobby Loja MD ? Collected: ? 06/14/2024 0953 ? Ordering Location: ? Main Operating Room Kristen ?? Received: ?06/14/2024 1413 ? [facility] ? Pathologist: ? Sandra Salas [...] Inking: External surface inked black Sections/Process ing: Training Director sections in 4 cassettes labeled A1-A4. cmk B. Heart, Atrial Appendage, Left, . B - Labeled/Fixative : Heart, atrial appendage, left, fresh. Quantity/Size: Single, 3.3 x 1.5 x 0.8 cm. Tissue Description: Portion of heart tissue consisting of rodriguez-white, semitranslucent, smooth endocardium with rodriguez-brown muscular myocardium and thin translucent epicardium with adherent adipose tissue. No areas of discoloration identified. Sections/Process ing: Training Director sections in 1 cassette labeled B1. cmk 06/18/2024 10:18 AM EST [facility] Result Note Routine 06/18/2024 10:18 AM [facility] Tissue SOFT TISSUE MASS / Unknown 06/14/2024 9:53 AM EST 06/14/2024 2:13 PM EST Comment:Mediastinal mass Tissue specimen (specimen) LEFT ATRIAL APPENDAGE ABSENT / Unknown 06/14/2024 10:54 AM EST 06/14/2024 2:13 PM EST Comment:MARIALUISA Bobby Loja MD PATHOLOGY/CYTOLOGY O RDERABLES [facility] [place] [address] * Cooximetry, POC (06/14/2024 9:00 AM EST) pO2, Coox 57 mmHg 06/14/2024 9:04 AM EST [facility] PO2 Corrected, COOX 50 mmHg 06/14/2024 9:04 AM EST [facility] Hemoglobin, Coox 14.3 13.7 - 16.5 g/dL 06/14/2024 9:04 AM EST [facility] Oxyhemoglobin, Coox 86.2 % 06/14/2024 9:04 AM EST [facility] Carboxyhemoglobi n, Coox 0.3 [...] TEST O RDERABLES [facility] [place] [address] * (ABNORMAL) Blood Gas, Arterial POC (06/14/2024 [...] 3.5 - 5.0 mmol/L 06/14/2024 8:40 AM [facility] Chloride, Arterial 102 98 - 107 mmol/L 06/14/2024 8:40 AM [facility] Lactate, Arterial 0.9 0.5 - 2.2 mmol/L 06/14/2024 8:40 AM [facility] IONIZED CALCIUM, ARTERIAL 1.17 1.15 - 1.33 mmol/L 06/14/2024 8:40 AM [facility] Glucose, Arterial 121 65 - 199 mg/dL 06/14/2024 8:40 AM [facility] Comment:Glucose Concentratio n >=200 mg/dL plus symptoms is consistent with Diabetes Mellitus. Blood ARTERIAL BLOOD / Unknown 06/14/2024 8:39 AM EST 06/14/2024 8:40 AM EST Haja Byrnes MD POINT OF CARE TEST O RDERABLES [facility] [place] [address] * Transesophageal Echo/OR (06/14/2024 7:20 AM EST) Anatomical Region Laterality Modality Cardiac Other 06/14/2024 7:20 AM EST Narrative 06/14/2024 4:36 PM EST Version: 2 Study ID: [id number] [place] [address] ?OR Transesophageal Echo Report Name: GEORGE MEHTA [...] of this mass after consultation with other jump iron machine presser experts and the decision was made by [...] MD - 11/11/2024 Version: 2 Study ID: [id number] [address] [place] [address] ORTransesophageal Echo Report Name: GEORGE MEHTA Study [...] of this mass after consultation with other jump iron machine presser experts and thedecision was made by surgeon [...] Hosea Ardon MD 06/14/2024, 4: 38 PM Bboby Loja MD ECHO ORDERABLES * POC, GLUCOSE [...] TEST O RDERABLES [facility] [place] [address] * POC, GLUCOSE (06/14/2024 4:30 AM EST) [...] Organization Address [facility]/ZIP Co de Phone Number [facility] [place] [address] * (ABNORMAL) Heparin (unfractionated) Level (06/14/2024 12:12 AM EST) Pathologist [facility] UF Heparin 1.02(HHH) IU/mL 06/14/2024 12:46 [...] MD HEMATOLOGY ORDERABLE S Performing Organization Address City/[facility]/ZIP Co de Phone Number [facility] [place] [address] * (ABNORMAL) CBC (with Diff) (06/14/2024 12:12 AM [facility]) [facility] Signature White Blood Cell 10.51(H) 4.00 - 9.50 x10(3)/mc L 06/14/2024 12:38 AM [facility] Red Blood Cell 4.99 4.58 - 5.54 x10(6)/mc L 06/14/2024 12:38 AM [facility] Hemoglobin 14.9 13.7 - 16.5 g/dL 06/14/2024 12:38 AM [facility] Hematocrit 45.9 40.5 - [...] - 0.90 x10(3)/mc L 06/14/2024 12:38 AM [facility] Eos % 3.9 % 06/14/2024 12:38 AM [facility] Eos Absolute 0.41(H) 0.00 - 0.40 x10(3)/mc L 06/14/2024 12:38 AM [facility] Basophil % [...] HEMATOLOGY ORDERABLE S [facility] [place] [address] * Magnesium (06/14/2024 12:12 AM EST) Magnesium 0.74 0.69 - 1.07 mMol/L 06/14/2024 12:57 AM EST [facility] Blood VENOUS BLOOD SPECIMEN / Unknown Venipuncture / Unknown 06/14/2024 12:12 AM EST 06/14/2024 12:29 AM EST Shahnaz Scanlon MD CHEMISTRY ORDERABLES [facility] [place] [address] * (ABNORMAL) Basic Metabolic Panel (06/14/2024 12:12 [...] Organization Address [facility] Co de Phone Number [facility] [place] [address] * Scan Doc: Implantable Devices (06/14/2024 12:00 [...] Organization Address [facility]/ZIP Co de Phone Number [facility] [place] [address] * (ABNORMAL) POC, GLUCOSE (06/13/2024 8:03 PM [...] Organization Address [facility] Co de Phone Number [facility] [place] [address] * Heparin (unfractionated) Level (06/13/2024 4:11 PM [...] Organization Address [facility] Co de Phone Number [facility] [place] [address] * ABORH RECHECK (06/13/2024 4:11 PM EST) Pathologist [facility] ABORH Recheck O POSITIVE 06/13/2024 4:50 PM EST [facility] Blood VENOUS BLOOD SPECIMEN / Unknown Venipuncture / Unknown 06/13/2024 4:11 PM EST 06/13/2024 4:19 PM EST Haja Byrnes MD BLOOD BANK LAB ORDER EUSEBIA [facility] [place] [address] * (ABNORMAL) POC, GLUCOSE (06/13/2024 4:09 PM EST) [facility] Glucometer, POC 216(H) 65 - 199 mg/dL 06/13/2024 4:10 PM EST [facility] Comment:Supplemental ranges: <140 mg/dL before meals <180 mg/dL all other times of the day. Blood CAPILLARY BLOOD / Unknown 06/13/2024 4:09 PM EST 06/13/2024 4:10 PM EST Haja Byrnes MD POINT OF CARE TEST O RDERABLES Performing Organization Address City/[facility]/ZIP Co de Phone Number [facility] [place] [address] * Type and screen ([facility]/CGP/RAFITA) (06/13/2024 11:53 AM EST) Pathologist [facility] ABORH Type O POSITIVE 06/13/2024 1:16 PM EST [facility] PATIENT HISTORY Not Found 06/13/2024 1:16 PM EST [facility] Expires at [id number] on: 06/16/2024 06/13/2024 1:16 PM EST [facility] ANTIBODY SCREEN AUTOMATED Negative 06/13/2024 1:16 PM EST [facility] T&S only valid at [facility] 06/13/2024 1:16 PM EST [facility] Blood VENOUS BLOOD SPECIMEN / Unknown Venipuncture / Unknown 06/13/2024 11:53 AM EST 06/13/2024 11:56 AM EST Narrative [facility] - 06/13/2024 1:16 PM EST This Type and Screen result is only valid at the [facility] Haja Byrnes MD BLOOD BANK LAB ORDER EUSEBIA Performing Organization Address [facility] Co de Phone Number [facility] [place] [address] * POC, GLUCOSE (06/13/2024 11:50 AM EST) [...] Organization Address [facility] Co de Phone Number [facility] [place] [address] * XR Chest One View (06/13/2024 10:35 AM EST) WORKSTATION ID [id number] [facility] Anatomical Region Laterality Modality Chest N/A Digital [...] who have questions please contact the health pet care attendant that requested your imaging first. ? Electronically signed by: Jyothi Simon MD, [facility] ([phone]), at 06/13/2024 10:43 AM Narrative 06/13/2024 10:43 [...] patients who have questions please contactthe health pet care attendant that requested your imaging first. Electronically signed by: Jyothi Simon MD, [facility]([phone]), at 06/13/2024 10:43 AM Haja Santiago Fitz GARCIA IMG DX ORDERABLES * CARDIAC CATHETERIZATION (06/13/2024 9:02 AM EST) Anatomical Region Laterality Modality Other Narrative 06/15/2024 9:07 AM EST ?[facility] ? Cardiac Catheterization/Intervention Report ? Patient Name: Tyson, George L. ? Procedure Date: 06/13/2024 ? A #: [id number] ? Primary Physician: Nuha Shen I ? Case #: [id number] ? File Name: [id number] ? Catheterization Order Number: [id number] ? [facility] ? Final Report [place], [place] ? Patient Name: ? George L. Tyson ? ID#: ?[id number] ? : ?1955 ? Procedure Date: ? June 13, 2024 ?Case #: ? [id number] ? Room: ? 6 ? Case Physician: [...] ?was designated as ASA Class IV. The [facility] clinical frailty scale is 5: [...] procedure was Urgent. The indication for ?the label printing machinist visit is ACS greater than 24 hrs [...] angiography, vascular ?ultrasound and IABP insertion in label printing machinist. ? Nuha Shen M.D. ? Electronically Signed by: Nuha Shen M.D. ? Report Finalized: 06/15/2024 ??08:59 ? Procedure Note Nuha Shen MD - 06/15/2024 [facility] Cardiac Catheterization/Intervention Report Patient Name: George Mehta Procedure Date: 06/13/2024 A #: [id number] Primary Physician: Nuha Shen I Case #: [id number] File Name: [id number] Catheterization Order Number: [id number] [facility] FinalReport Patient Name: George Mehta ID#:[id number] :1955 Procedure Date: June 13, 2024 Case [...] was designated as ASA Class IV. The [facility] clinical frailty scale is5: Mildly [...] diagnostic procedure was Urgent. The indicationfor the label printing machinist visit is ACS greater than 24 hrs [...] site angiography,vascular ultrasound and IABP insertion in label printing machinist. Nuha Shen M.D. Electronically Signed by: Nuha [...] Scanlon MD CHEMISTRY ORDERABLES Performing Organization Address City/State/[facility] de Phone Number [facility] [place] [address] * POC, GLUCOSE (06/13/2024 7:41 AM EST) Glucometer, POC 126 65 - 199 mg/dL 06/13/2024 7:41 AM EST [facility] Comment:Supplemental ranges: <140 mg/dL before meals <180 mg/dL all other times of the day. Blood CAPILLARY BLOOD / Unknown 06/13/2024 7:41 AM EST 06/13/2024 7:41 AM EST Ethel Carrillo MD POINT OF CARE TEST O NIKA Performing Organization Address [facility] Phone Number [facility] [place] [address] * POC, GLUCOSE (06/13/2024 3:25 AM EST) [facility] Glucometer, POC 99 65 - 199 mg/dL 06/13/2024 3:25 AM EST [facility] Comment:Supplemental ranges: <140 mg/dL before meals <180 mg/dL all other times of the day. Blood CAPILLARY BLOOD / Unknown 06/13/2024 3:25 AM EST 06/13/2024 3:25 AM EST Ethel Carrillo MD POINT OF CARE TEST Abimael MAHER Performing Organization Address [facility] Phone Number [facility] [place] [address] * Heparin (unfractionated) Level (06/13/2024 2:26 AM EST) [facility] UF Heparin 0.60 IU/mL 06/13/2024 3:32 AM [...] MD HEMATOLOGY ORDERABLE S Performing Organization Address City/State/[facility] Co de Phone Number [facility] [place] [phone] * (ABNORMAL) CBC (with Diff) (06/13/2024 2:26 AM EST) White Blood Cell 9.98(H) 4.00 - 9.50 x10(3)/mc L 06/13/2024 2:41 AM EST [facility] Red Blood Cell 5.11 4.58 - 5.54 x10(6)/mc L 06/13/2024 2:41 AM EST [facility] Hemoglobin 15.3 13.7 - 16.5 g/dL 06/13/2024 2:41 AM EST [facility] Hematocrit 47.1 40.5 - 48.5 % 06/13/2024 2:41 AM EST [facility] Mean Cell Volume 92.2 82.9 - 93.1 fL 06/13/2024 2:41 AM EST [facility] Mean Cell Hemoglobin 29.9 27.5 - 32.1 pg 06/13/2024 2:41 AM EST [facility] Mean Cell Hemoglobin [...] % 0.9 % 06/13/2024 2:41 AM EST [facility] Baso Absolute 0.09 0.00 - 0.10 x10(3)/mc L 06/13/2024 2:41 AM EST [facility] Immature Gran % 0.5 % 2:41 AM EST [facility] Immature Gran Absolute 0.05(H) 0.00 - 0.04 x10(3)/mc L 06/13/2024 2:41 AM EST [facility] Blood VENOUS BLOOD SPECIMEN / Unknown Venipuncture / Unknown 06/13/2024 2:26 AM EST 06/13/2024 2:32 AM EST Shahnaz Scanlon MD HEMATOLOGY ORDERABLE S Performing Organization Address City/[facility]/ZIP Co de Phone Number [facility] [place] [address] * Magnesium (06/13/2024 2:26 AM EST) Magnesium 0.78 0.69 - 1.07 mMol/L 06/13/2024 2:58 AM [facility] Blood VENOUS BLOOD SPECIMEN / Unknown Venipuncture / Unknown 06/13/2024 2:26 AM EST 06/13/2024 2:31 AM EST Shahnaz Scanlon MD CHEMISTRY ORDERABLES [facility] [place] [address] * (ABNORMAL) Basic Metabolic Panel (06/13/2024 2:26 AM EST) Glucose 121 65 - 199 mg/dL 06/13/2024 2:58 AM [facility] Comment:Glucose Concentratio n >=200 mg/dL plus symptoms is consistent with Diabetes Mellitus. Blood Urea Nitrogen 21(H) 10 - 20 mg/dL 06/13/2024 2:58 AM EST [facility] Creatinine 1.07 0.80 - 1.50 mg/dL 06/13/2024 2:58 AM EST [facility] Sodium 136 135 - [...] 5 - 15 mMol/L 06/13/2024 2:58 AM [facility] Calcium 9.7 8.5 - 10.5 mg/dL 06/13/2024 2:58 AM [facility] Est Glomerular [...] MD CHEMISTRY ORDERABLES [facility] [place] [address] * POC, GLUCOSE (06/12/2024 11:53 PM EST) Glucometer, POC 141 65 - 199 mg/dL 06/12/2024 11:54 PM EST [facility] Comment:Supplemental ranges: <140 mg/dL before meals <180 mg/dL all other times of the day. Blood CAPILLARY BLOOD / Unknown 06/12/2024 11:53 PM EST 06/12/2024 11:54 PM EST Ethel Carrillo MD POINT OF CARE TEST O NIKA Performing Organization Address City/[facility] Co de Phone Number [facility] [place] [address] * POC, GLUCOSE (06/12/2024 7:32 PM EST) [...] Organization Address [facility] Co de Phone Number [facility] [place] [address] * POC, GLUCOSE (06/12/2024 3:41 PM EST) Glucometer, POC 113 65 - 199 mg/dL 06/12/2024 3:41 PM EST [facility] Comment:Supplemental ranges: <140 mg/dL before meals <180 mg/dL all other times of the day. Blood CAPILLARY BLOOD / Unknown 06/12/2024 3:41 PM EST 06/12/2024 3:41 PM EST Ethel Carrillo MD POINT OF CARE TEST O NIKA Performing Organization Address City/[facility]/ZIP Co de Phone Number [facility] [place] [address] * Potassium (06/12/2024 2:19 PM EST) Potassium 4.5 3.5 - 5.0 mMol/L 06/12/2024 2:45 PM EST [facility] Blood VENOUS BLOOD SPECIMEN / Unknown Venipuncture / Unknown 06/12/2024 2:19 PM EST 06/12/2024 2:23 PM EST Shahnaz Scanlon MD CHEMISTRY ORDERABLES [facility] [place] [address] * (ABNORMAL) POC, GLUCOSE (06/12/2024 11:21 AM EST) Glucometer, POC 207(H) 65 - 199 mg/dL 06/12/2024 11:21 AM EST [facility] Comment:Supplemental ranges: <140 mg/dL before meals <180 mg/dL all other times of the day. Blood CAPILLARY BLOOD / Unknown 06/12/2024 11:21 AM EST 06/12/2024 11:22 AM EST Ethel Carrillo MD POINT OF CARE TEST O NIKA [facility] [place] [address] * POC, GLUCOSE (06/12/2024 8:00 AM EST) Glucometer, POC 169 65 - 199 mg/dL 06/12/2024 8:01 AM EST [facility] Comment:Supplemental ranges: <140 mg/dL before meals <180 mg/dL all other times of the day. Blood CAPILLARY BLOOD / Unknown 06/12/2024 8:00 AM EST 06/12/2024 8:01 AM EST Ethel Carrillo MD POINT OF CARE TEST O NIKA [facility] [place] [address] * POC, GLUCOSE (06/12/2024 4:25 AM EST) [...] Organization Address [facility] Co de Phone Number [facility] [place] [address] * Heparin (unfractionated) Level (06/12/2024 3:03 AM [...] HEMATOLOGY ORDERABLE S [facility] [place] [address] * (ABNORMAL) CBC (with Diff) (06/12/2024 3:03 AM EST) White Blood Cell 9.69(H) 4.00 - 9.50 x10(3)/mc L 06/12/2024 3:36 AM [facility] Red Blood Cell 5.05 4.58 - 5.54 x10(6)/mc L 06/12/2024 3:36 AM [facility] Hemoglobin 15.2 13.7 - [...] HEMATOLOGY ORDERABLE S [facility] [place] [address] * Magnesium (06/12/2024 3:03 AM EST) Pathologist [facility] Magnesium 0.79 0.69 - 1.07 mMol/L 06/12/2024 4:01 AM [facility] Blood VENOUS BLOOD SPECIMEN / Unknown Venipuncture / Unknown 06/12/2024 3:03 AM EST 06/12/2024 3:30 AM EST Shahnaz Scanlon MD CHEMISTRY ORDERABLES [facility] [place] [address] * (ABNORMAL) Basic Metabolic Panel (06/12/2024 3:03 AM EST) Pathologist [facility] Glucose 132 65 - 199 mg/dL 06/12/2024 [...] mL/min/1. 73 m?? 06/12/2024 4:01 AM EST [facility] Comment: [...] Scanlon MD CHEMISTRY ORDERABLES Performing Organization Address City/[facility]/ZIP Co de Phone Number [facility] [place] [address] * POC, GLUCOSE (06/11/2024 11:56 PM EST) Glucometer, POC 135 65 - 199 mg/dL 06/11/2024 11:56 PM EST [facility] Comment:Supplemental ranges: <140 mg/dL before meals <180 mg/dL all other times of the day. Blood CAPILLARY BLOOD / Unknown 06/11/2024 11:56 PM EST 06/11/2024 11:56 PM EST Ethel Carrillo MD POINT OF CARE TEST O RDERABLES Performing Organization Address City/[facility]/ZIP Co de Phone Number [facility] [place] [address] * (ABNORMAL) POC, GLUCOSE (06/11/2024 8:25 PM [...] Organization Address [facility] Co de Phone Number [facility] [place] [address] * POC, GLUCOSE (06/11/2024 4:24 PM EST) [...] Organization Address [facility] Co de Phone Number [facility] [place] [address] * (ABNORMAL) POC, GLUCOSE (06/11/2024 11:08 AM EST) Glucometer, POC 233(H) 65 - 199 mg/dL 06/11/2024 11:08 AM EST [facility] Comment:Supplemental ranges: <140 mg/dL before meals <180 mg/dL all other times of the day. Blood CAPILLARY BLOOD / Unknown 06/11/2024 11:08 AM EST 06/11/2024 11:08 AM EST Ethel Carrillo MD POINT OF CARE TEST O NIKA Performing Organization Address City/[facility] Co de Phone Number [facility] [place] [address] * POC, GLUCOSE (06/11/2024 7:48 AM EST) [...] Organization Address [facility] de Phone Number [facility] [place] [address] * Heparin (unfractionated) Level (06/11/2024 5:31 AM EST) Pathologist [facility] UF Heparin 0.55 IU/mL 06/11/2024 6:10 AM [...] Organization Address [facility] Co de Phone Number [facility] [place] [address] * POC, GLUCOSE (06/11/2024 3:57 AM EST) [facility] Glucometer, POC 132 65 - 199 mg/dL 06/11/2024 3:58 AM [facility] Comment:Supplemental ranges: <140 mg/dL before meals <180 mg/dL all other times of the day. Blood CAPILLARY BLOOD / Unknown 06/11/2024 3:57 AM EST 06/11/2024 3:58 AM EST Melida Valdes MD POINT OF CARE TEST O RDERABLES [facility] [place] [address] * (ABNORMAL) CBC (with Diff) (06/11/2024 2:13 AM EST) [facility] White Blood Cell 9.91(H) 4.00 - 9.50 [...] - 0.40 x10(3)/mc L 06/11/2024 2:26 AM [facility] Basophil % 0.7 % 06/11/2024 2:26 AM [facility] Baso Absolute 0.07 0.00 - 0.10 x10(3)/mc L 06/11/2024 2:26 AM [facility] Immature Gran % 0.5 % 2:26 AM EST [facility] Immature Gran Absolute 0.05(H) 0.00 - 0.04 x10(3)/mc L 06/11/2024 2:26 AM [facility] Blood VENOUS BLOOD SPECIMEN / Unknown Venipuncture / Unknown 06/11/2024 2:13 AM EST 06/11/2024 2:19 AM EST Shahnaz Scanlon MD HEMATOLOGY ORDERABLE S Performing Organization Address [facility]/ZIP Co de Phone Number [facility] [place] [address] * Magnesium (06/11/2024 2:13 AM EST) Magnesium 0.83 0.69 - 1.07 mMol/L 06/11/2024 2:51 AM [facility] Blood VENOUS BLOOD SPECIMEN / Unknown Venipuncture / Unknown 06/11/2024 2:13 AM EST 06/11/2024 2:19 AM EST Shahnaz Scanlon MD CHEMISTRY ORDERABLES Performing Organization Address City/[facility] Co de Phone Number [facility] [place] [address] * (ABNORMAL) Basic Metabolic Panel (06/11/2024 2:13 AM EST) Glucose 148 65 - 199 mg/dL 06/11/2024 2:51 AM [facility] Comment:Glucose Concentratio n >=200 mg/dL plus symptoms is consistent with Diabetes Mellitus. Blood Urea Nitrogen 24(H) 10 - 20 mg/dL 06/11/2024 2:51 AM [facility] Creatinine 1.06 0.80 - 1.50 mg/dL 06/11/2024 2:51 AM [facility] Sodium 134(L) 135 - 145 mMol/L 06/11/2024 2:51 AM [facility] Potassium 4.1 3.5 - 5.0 mMol/L 06/11/2024 2:51 AM [facility] Chloride 96(L) 98 - 107 mMol/L 06/11/2024 2:51 AM [facility] Carbon Dioxide 28 22 - 31 mMol/L 06/11/2024 2:51 AM [facility] Anion Gap 10 5 - 15 mMol/L 06/11/2024 2:51 AM [facility] Calcium 9.4 8.5 - 10.5 mg/dL 06/11/2024 2:51 AM [facility] Est Glomerular Filtration Rate - Male 77 mL/min/1. 73 m?? 06/11/2024 2:51 AM [facility] Comment: This [...] MD CHEMISTRY ORDERABLES [facility] [place] [address] * POC, GLUCOSE (06/11/2024 12:50 AM EST) [facility] Signature Glucometer, POC 144 65 - 199 mg/dL 06/11/2024 12:51 AM EST [facility] Comment:Supplemental ranges: <140 mg/dL before meals <180 mg/dL all other times of the day. Blood CAPILLARY BLOOD / Unknown 06/11/2024 12:50 AM EST 06/11/2024 12:51 AM EST Melida Valdes MD POINT OF CARE TEST O NIKA Performing Organization Address City/[facility] Co de Phone Number [facility] [place] [address] * (ABNORMAL) POC, GLUCOSE (06/10/2024 7:22 PM [...] Organization Address [facility] Co de Phone Number [facility] [place] [address] * (ABNORMAL) Blood Gas, Venous (06/10/2024 5:42 PM EST) pH, Venous 7.34 7.32 - 7.42 06/10/2024 5:50 PM [facility] PCO2, Venous 52 38 - 58 mmHg 06/10/2024 5:50 PM [facility] PO2, Venous 24 16 - 65 mmHg 06/10/2024 5:50 PM [facility] Bicarbonate, Venous 27.4 22 [...] Venous 0.5 <=1.5 % 06/10/2024 5:50 PM [facility] Sodium, Venous 137 135 - 145 mmol/L 06/10/2024 5:50 PM [facility] Chloride, Venous 96(L) 98 - 107 mmol/L 06/10/2024 5:50 PM [facility] Potassium, Venous 4.6 3.5 - 5.0 mmol/L 06/10/2024 5:50 PM [facility] Ionized Calcium, Venous 1.23 1.15 - 1.33 mmol/L 06/10/2024 5:50 PM [facility] Glucose, Venous 114 65 - 199 mg/dL 06/10/2024 5:50 PM [facility] Comment:Glucose Concentratio [...] MD CHEMISTRY ORDERABLES [facility] [place] [address] * POC, GLUCOSE (06/10/2024 5:35 PM EST) [facility] Signature Glucometer, POC 123 65 - 199 mg/dL 06/10/2024 5:35 PM EST [facility] Comment:Supplemental ranges: <140 mg/dL before meals <180 mg/dL all other times of the day. Blood CAPILLARY BLOOD / Unknown 06/10/2024 5:35 PM EST 06/10/2024 5:35 PM EST Melida Valdes MD POINT OF CARE TEST O NIKA Performing Organization Address [facility] Co de Phone Number [facility] [place] [address] * (ABNORMAL) POC, GLUCOSE (06/10/2024 11:25 AM [...] Organization Address [facility] de Phone Number [facility] [place] [address] * (ABNORMAL) POC, GLUCOSE (06/10/2024 7:46 AM EST) Glucometer, POC 206(H) 65 - 199 mg/dL 06/10/2024 7:46 AM EST [facility] Comment:Supplemental ranges: <140 mg/dL before meals <180 mg/dL all other times of the day. Blood CAPILLARY BLOOD / Unknown 06/10/2024 7:46 AM EST 06/10/2024 7:46 AM EST Melida Valdes MD POINT OF CARE TEST O NIKA Performing Organization Address City/[facility] Co de Phone Number [facility] [place] [address] * POC, GLUCOSE (06/10/2024 4:23 AM EST) Pathologist [facility] Glucometer, POC 154 65 - 199 mg/dL 06/10/2024 4:24 AM [facility] Comment:Supplemental ranges: <140 mg/dL before meals <180 mg/dL all other times of the day. Blood CAPILLARY BLOOD / Unknown 06/10/2024 4:23 AM EST 06/10/2024 4:24 AM EST Melida Valdes MD POINT OF CARE TEST O RDERABLES [facility] [place] [address] * (ABNORMAL) CBC (with Diff) (06/10/2024 1:55 AM EST) [facility] White Blood Cell 9.00 4.00 - 9.50 [...] Organization Address [facility] Co de Phone Number [facility] [place] [address] * Magnesium (06/10/2024 1:55 AM EST) Magnesium 0.83 0.69 - 1.07 mMol/L 06/10/2024 2:37 AM [facility] Blood VENOUS BLOOD SPECIMEN / Unknown Venipuncture / Unknown 06/10/2024 1:55 AM EST 06/10/2024 2:05 AM EST Shahnaz Scanlon MD CHEMISTRY ORDERABLES Performing Organization Address [facility] Co de Phone Number [facility] [place] [address] * (ABNORMAL) Basic Metabolic Panel (06/10/2024 1:55 [...] - 5.0 mMol/L 06/10/2024 2:37 AM EST [facility] Chloride 100 98 - [...] MD CHEMISTRY ORDERABLES [facility] [place] [address] * Heparin (unfractionated) Level (06/10/2024 1:54 AM [...] Organization Address [facility] Co de Phone Number [facility] [place] [address] * POC, GLUCOSE (06/10/2024 12:05 AM EST) [...] Organization Address [facility] Co de Phone Number [facility] [place] [address] * POC, GLUCOSE (06/09/2024 8:36 PM EST) [...] Organization Address [facility] Co de Phone Number [facility] [place] [address] * POC, GLUCOSE (06/09/2024 5:27 PM EST) [...] NIKA Performing Organization Address [facility] Phone Number [facility] [place] [address] * (ABNORMAL) POC, GLUCOSE (06/09/2024 11:52 AM [...] Organization Address [facility] Co de Phone Number [facility] [place] [address] * Potassium (06/09/2024 8:25 AM EST) Potassium 4.6 3.5 - 5.0 mMol/L 06/09/2024 10:09 AM EST [facility] Blood VENOUS BLOOD SPECIMEN / Unknown Venipuncture / Unknown 06/09/2024 8:25 AM EST 06/09/2024 8:42 AM EST Shahnaz Scanlon MD CHEMISTRY ORDERABLES Performing Organization Address [facility] Co de Phone Number [facility] [place] [address] * (ABNORMAL) POC, GLUCOSE (06/09/2024 8:10 AM [...] Organization Address [facility] Co de Phone Number [facility] [place] [address] * POC, GLUCOSE (06/09/2024 4:40 AM EST) [...] Organization Address [facility] Co de Phone Number [facility] [place] [address] * Heparin (unfractionated) Level (06/09/2024 2:12 AM EST) UF Heparin 0.55 IU/mL 06/09/2024 2:33 AM [facility] Comment: Heparin (anti-Xa) levels [...] HEMATOLOGY ORDERABLE S [facility] [place] [id number] * (ABNORMAL) CBC (with Diff) (06/09/2024 2:12 AM EST) White Blood Cell 9.80(H) 4.00 - 9.50 x10(3)/mc L 06/09/2024 2:44 AM EST [facility] Red Blood Cell 5.18 4.58 - 5.54 x10(6)/mc L 06/09/2024 2:44 AM [facility] Hemoglobin 15.5 13.7 - 16.5 g/dL 06/09/2024 2:44 AM [facility] Hematocrit 47.4 40.5 - 48.5 % 06/09/2024 2:44 AM [facility] Mean Cell Volume 91.5 82.9 - 93.1 fL 06/09/2024 2:44 AM EST [facility] Mean Cell Hemoglobin 29.9 [...] 0.40 x10(3)/mc L 06/09/2024 2:44 AM EST [facility] Basophil % 0.9 % 06/09/2024 2:44 AM EST [facility] Baso Absolute 0.09 0.00 - 0.10 x10(3)/mc L 06/09/2024 2:44 AM EST [facility] Immature Gran % 0.6 % 2:44 AM EST [facility] Immature Gran Absolute 0.06(H) 0.00 - 0.04 x10(3)/mc L 06/09/2024 2:44 AM EST [facility] Blood VENOUS BLOOD SPECIMEN / Unknown Venipuncture / Unknown 06/09/2024 2:12 AM EST 06/09/2024 2:21 AM EST Shahnaz Scanlon MD HEMATOLOGY ORDERABLE S [facility] [place] [address] * Magnesium (06/09/2024 2:12 AM EST) Magnesium 0.83 0.69 - 1.07 mMol/L 06/09/2024 2:52 AM EST [facility] Blood VENOUS BLOOD SPECIMEN / Unknown Venipuncture / Unknown 06/09/2024 2:12 AM EST 06/09/2024 2:22 AM EST Shahnaz Scanlon MD CHEMISTRY ORDERABLES [facility] [place] [address] * (ABNORMAL) Basic Metabolic Panel (06/09/2024 2:12 [...] MD CHEMISTRY ORDERABLES [facility] [place] [address] * POC, GLUCOSE (06/09/2024 12:34 AM EST) Glucometer, POC 186 65 - 199 mg/dL 06/09/2024 12:34 AM EST [facility] Comment:Supplemental ranges: <140 mg/dL before meals <180 mg/dL all other times of the day. Blood CAPILLARY BLOOD / Unknown 06/09/2024 12:34 AM EST 06/09/2024 12:34 AM EST Melida Valdes MD POINT OF CARE TEST O NIKA Performing Organization Address City/[facility]/ZIP Co de Phone Number [facility] [place] [address] * POC, GLUCOSE (06/08/2024 8:27 PM EST) Glucometer, POC 176 65 - 199 mg/dL 06/08/2024 8:28 PM EST [facility] Comment:Supplemental ranges: <140 mg/dL before meals <180 mg/dL all other times of the day. Blood CAPILLARY BLOOD / Unknown 06/08/2024 8:27 PM EST 06/08/2024 8:28 PM EST Melida Valdes MD POINT OF CARE TEST O NIKA [facility] [place] [address] * POC, GLUCOSE (06/08/2024 4:16 PM EST) [...] Organization Address [facility] Co de Phone Number [facility] [place] [address] * (ABNORMAL) POC, GLUCOSE (06/08/2024 12:35 PM [...] Organization Address [facility] Co de Phone Number [facility] [place] [address] * POC, GLUCOSE (06/08/2024 8:10 AM EST) [...] Organization Address [facility] Co de Phone Number [facility] [place] [address] * POC, GLUCOSE (06/08/2024 4:09 AM EST) [...] Organization Address [facility] Co de Phone Number [facility] [place] [address] * Heparin (unfractionated) Level (06/08/2024 3:21 AM [...] MD HEMATOLOGY ORDERABLE S Performing Organization Address City/[facility]/ZIP Co de Phone Number [facility] [place] [address] * (ABNORMAL) CBC (with Diff) (06/08/2024 3:21 AM EST) White Blood Cell 9.92(H) 4.00 - 9.50 x10(3)/mc L 06/08/2024 3:34 AM EST [facility] Red Blood Cell 5.09 4.58 - 5.54 x10(6)/mc L 06/08/2024 3:34 AM [facility] Hemoglobin 15.1 13.7 - [...] - 0.10 x10(3)/mc L 06/08/2024 3:34 AM [facility] Immature Gran % 0.5 % 3:34 AM [facility] Immature Gran Absolute 0.05(H) 0.00 - 0.04 x10(3)/mc L 06/08/2024 3:34 AM [facility] Blood VENOUS BLOOD SPECIMEN / Unknown Venipuncture / Unknown 06/08/2024 3:21 AM EST 06/08/2024 3:27 AM EST Shahnaz Scanlon MD HEMATOLOGY ORDERABLE S Performing Organization Address City/State/[facility] Co de Phone Number [facility] [place] [address] * Magnesium (06/08/2024 3:21 AM EST) Magnesium 0.84 0.69 - 1.07 mMol/L 06/08/2024 3:59 AM [facility] Blood VENOUS BLOOD SPECIMEN / Unknown Venipuncture / Unknown 06/08/2024 3:21 AM EST 06/08/2024 3:27 AM EST Shahnaz Scanlon MD CHEMISTRY ORDERABLES [facility] [place] [address] * (ABNORMAL) Basic Metabolic Panel (06/08/2024 3:21 [...] Scanlon MD CHEMISTRY ORDERABLES Performing Organization Address City/[facility]/ZIP Co de Phone Number [facility] [place] [address] * POC, GLUCOSE (06/07/2024 11:57 PM EST) [...] Organization Address [facility] Co de Phone Number [facility] [place] [address] * POC, GLUCOSE (06/07/2024 8:05 PM EST) Glucometer, POC 118 65 - 199 mg/dL 06/07/2024 8:06 PM EST [facility] Comment:Supplemental ranges: <140 mg/dL before meals <180 mg/dL all other times of the day. Blood CAPILLARY BLOOD / Unknown 06/07/2024 8:05 PM EST 06/07/2024 8:06 PM EST Melida Valdes MD POINT OF CARE TEST O RDERABLES Performing Organization Address City/[facility]/ZIP Co de Phone Number [facility] [place] [address] * Potassium (06/07/2024 5:22 PM EST) Potassium 4.6 3.5 - 5.0 mMol/L 06/07/2024 5:59 PM EST [facility] Blood VENOUS BLOOD SPECIMEN / Unknown Venipuncture / Unknown 06/07/2024 5:22 PM EST 06/07/2024 5:26 PM EST Shahnaz Scanlon MD CHEMISTRY ORDERABLES Performing Organization Address [facility] Co de Phone Number [facility] [place] [address] * POC, GLUCOSE (06/07/2024 4:31 PM EST) Pathologist [facility] Glucometer, POC 174 65 - 199 mg/dL 06/07/2024 4:34 PM EST [facility] Comment:Supplemental ranges: <140 mg/dL before meals <180 mg/dL all other times of the day. Blood CAPILLARY BLOOD / Unknown 06/07/2024 4:31 PM EST 06/07/2024 4:34 PM EST Melida Valdes MD POINT OF CARE TEST O RDERABLES Performing Organization Address [facility] Co de Phone Number [facility] [place] [address] * MRI Cardiac Morphology Function wwo Contrast (06/07/2024 1:10 PM EST) WORKSTATION ID [id number] RAD Anatomical Region Laterality Modality Magnetic Resonan [...] - Mildly dilated left ventricle size with [id number]-rayqdsja decreased LV systolic function. ??LV ejection fraction [...] who have questions please contact the health pet care attendant that requested your imaging first. ? Electronically signed by: Kriss Alonzo MD, [facility] ([phone]), at 06/07/2024 2:41 PM Narrative 06/07/2024 2:41 [...] VENTRICLE: Mildly dilated left ventricle size with pnqmtzwa-wq-mbardetc decreased LV systolic function. ??LV ejection fraction [...] VENTRICLE: Mildly dilated left ventricle size with qyykudwt-ne-sweiamrl decreasedLV systolic function. LV ejection fraction is [...] - Mildly dilated left ventricle size with jkinulfj-hl-xnodwxux decreasedLV systolic function. LV ejection fraction is [...] patients who have questions please contactthe health pet care attendant that requested your imaging first. Electronically signed by: Kriss Alonzo MD, [facility]([phone]), at 06/07/2024 2:41 PM Delroy Fofana MD [...] Organization Address [facility]/ZIP Co de Phone Number [facility] [place] [address] * (ABNORMAL) POC, GLUCOSE (06/07/2024 11:03 AM EST) Glucometer, POC 250(H) 65 - 199 mg/dL 06/07/2024 11:04 AM EST [facility] Comment:Supplemental ranges: <140 mg/dL before meals <180 mg/dL all other times of the day. Blood CAPILLARY BLOOD / Unknown 06/07/2024 11:03 AM EST 06/07/2024 11:04 AM EST Melida Valdes MD POINT OF CARE TEST O NIKA Performing Organization Address City/[facility]/ZIP Co de Phone Number [facility] [place] [address] * Potassium (06/07/2024 9:44 AM EST) Pathologist [facility] Potassium 4.7 3.5 - 5.0 mMol/L 06/07/2024 10:23 AM EST [facility] Blood VENOUS BLOOD SPECIMEN / Unknown Venipuncture / Unknown 06/07/2024 9:44 AM EST 06/07/2024 9:57 AM EST Shahnaz Scanlon MD CHEMISTRY ORDERABLES Performing Organization Address City/[facility]/ZIP Co de Phone Number [facility] [place] [address] * POC, GLUCOSE (06/07/2024 7:45 AM EST) [facility] Glucometer, POC 175 65 - 199 mg/dL 06/07/2024 7:45 AM EST [facility] Comment:Supplemental ranges: <140 mg/dL before meals <180 mg/dL all other times of the day. Blood CAPILLARY BLOOD / Unknown 06/07/2024 7:45 AM EST 06/07/2024 7:46 AM EST Melida Valdes MD POINT OF CARE TEST O RDERABLES Performing Organization Address [facility]/ZIP Co de Phone Number [facility] [place] [address] * XR Chest PA & Lateral (Generic) (06/07/2024 7:03 AM EST) Pathologist [facility] WORKSTATION ID [id number] DH RAD Anatomical Region Laterality Modality Chest [...] who have questions please contact the health pet care attendant that requested your imaging first. ? Electronically signed by: Stuart Aponte MD, [facility] ??([phone]), at 06/07/2024 10:45 AM Narrative 06/07/2024 10:45 [...] patients who have questions please contactthe health pet care attendant that requested your imaging first. Electronically signed by: Stuart Aponte MD, [facility]([phone]), at 06/07/2024 10:45 AM Shahnaz Scanlon MD [...] CARE TEST O RDERABLES Performing Organization Address City/State/[facility] Co de Phone Number [facility] [place] [address] * Heparin (unfractionated) Level (06/07/2024 2:41 AM [...] HEMATOLOGY ORDERABLE S [facility] [place] [address] * (ABNORMAL) CBC (with Diff) (06/07/2024 2:41 AM EST) White Blood Cell 10.06(H) 4.00 - 9.50 x10(3)/mc L 06/07/2024 2:58 AM [facility] Red Blood Cell 5.02 [...] HEMATOLOGY ORDERABLE S [facility] [place] [address] * Magnesium (06/07/2024 2:41 AM EST) Magnesium 0.92 0.69 - 1.07 mMol/L 06/07/2024 3:25 AM [facility] Blood VENOUS BLOOD SPECIMEN / Unknown Venipuncture / Unknown 06/07/2024 2:41 AM EST 06/07/2024 2:51 AM EST Shahnaz Scanlon MD CHEMISTRY ORDERABLES [facility] [place] [address] * (ABNORMAL) Basic Metabolic Panel (06/07/2024 2:41 AM EST) Pathologist [facility] Glucose 140 65 - 199 mg/dL 06/07/2024 3:25 AM [facility] Comment:Glucose Concentratio [...] Scanlon MD CHEMISTRY ORDERABLES Performing Organization Address City/[facility]/ZIP Co de Phone Number [facility] [place] [address] * POC, GLUCOSE (06/07/2024 12:08 AM EST) Glucometer, POC 182 65 - 199 mg/dL 06/07/2024 12:09 AM EST [facility] Comment:Supplemental ranges: <140 mg/dL before meals <180 mg/dL all other times of the day. Blood CAPILLARY BLOOD / Unknown 06/07/2024 12:08 AM EST 06/07/2024 12:09 AM EST Melida Valdes MD POINT OF CARE TEST O RDERABLES Performing Organization Address City/[facility]/ZIP Co de Phone Number [facility] [place] [address] * POC, GLUCOSE (06/06/2024 8:18 PM EST) Glucometer, POC 143 65 - 199 mg/dL 06/06/2024 8:19 PM EST [facility] Comment:Supplemental ranges: <140 mg/dL before meals <180 mg/dL all other times of the day. Blood CAPILLARY BLOOD / Unknown 06/06/2024 8:18 PM EST 06/06/2024 8:19 PM EST Melida Valdes MD POINT OF CARE TEST O RDERABLES Performing Organization Address City/[facility]/ZIP Co de Phone Number [facility] [place] [address] * POC, GLUCOSE (06/06/2024 3:39 PM EST) [...] Organization Address [facility] Co de Phone Number [facility] [place] [address] * Potassium (06/06/2024 2:37 PM EST) Potassium 4.3 3.5 - 5.0 mMol/L 06/06/2024 3:01 PM EST [facility] Blood VENOUS BLOOD SPECIMEN / Unknown Venipuncture / Unknown 06/06/2024 2:37 PM EST 06/06/2024 2:42 PM EST Shahnaz Scanlon MD CHEMISTRY ORDERABLES Performing Organization Address [facility] Co de Phone Number [facility] [place] [address] * (ABNORMAL) POC, GLUCOSE (06/06/2024 1:39 PM EST) Glucometer, POC 317(H) 65 - 199 mg/dL 06/06/2024 1:40 PM EST [facility] Comment:Supplemental ranges: <140 mg/dL before meals <180 mg/dL all other times of the day. Blood CAPILLARY BLOOD / Unknown 06/06/2024 1:39 PM EST 06/06/2024 1:41 PM EST Melida Valdes MD POINT OF CARE TEST O RDERABLES Performing Organization Address City/[facility]/ZIP Co de Phone Number [facility] [place] [address] * (ABNORMAL) POC, GLUCOSE (06/06/2024 11:34 AM EST) Glucometer, POC 264(H) 65 - 199 mg/dL 06/06/2024 11:35 AM EST [facility] Comment:Supplemental ranges: <140 mg/dL before meals <180 mg/dL all other times of the day. Blood CAPILLARY BLOOD / Unknown 06/06/2024 11:34 AM EST 06/06/2024 11:35 AM EST Melida Valdes MD POINT OF CARE TEST O RDERABLES Performing Organization Address City/[facility]/ZIP Co de Phone Number [facility] [place] [address] * Potassium (06/06/2024 10:17 AM EST) Potassium 4.3 3.5 - 5.0 mMol/L 06/06/2024 10:46 AM EST [facility] Blood VENOUS BLOOD SPECIMEN / Unknown Venipuncture / Unknown 06/06/2024 10:17 AM EST 06/06/2024 10:22 AM EST Shahnaz Scanlon MD CHEMISTRY ORDERABLES Performing Organization Address City/[facility]/ZIP Co de Phone Number [facility] [place] [address] * POC, GLUCOSE (06/06/2024 7:57 AM EST) [...] Organization Address [facility] Co de Phone Number [facility] [place] [address] * POC, GLUCOSE (06/06/2024 6:53 AM EST) [...] Organization Address [facility] de Phone Number [facility] [place] [address] * (ABNORMAL) Hemoglobin A1c (06/06/2024 3:33 AM [...] red blood cell turnover may not be technical service representative of glycemic control. Reference Interval: [...] Organization Address [facility] Co de Phone Number [facility] [place] [address] * Heparin (unfractionated) Level (06/06/2024 3:33 AM [...] Organization Address [facility] Co de Phone Number [facility] [place] [address] * (ABNORMAL) CBC (with Diff) (06/06/2024 3:33 AM [facility]) [facility] White Blood Cell 9.81(H) 4.00 - 9.50 x10(3)/mc L 06/06/2024 3:54 AM [facility] Red Blood Cell 4.91 4.58 - 5.54 x10(6)/mc L 06/06/2024 3:54 AM [facility] Hemoglobin 14.6 13.7 - 16.5 g/dL 06/06/2024 3:54 AM [facility] Hematocrit 45.4 40.5 - [...] - 0.90 x10(3)/mc L 06/06/2024 3:54 AM [facility] Eos % 3.0 % 06/06/2024 3:54 AM [facility] Eos Absolute 0.29 0.00 - 0.40 x10(3)/mc L 06/06/2024 3:54 AM [facility] Basophil % [...] HEMATOLOGY ORDERABLE S [facility] [place] [address] * Magnesium (06/06/2024 3:33 AM EST) Magnesium 0.92 0.69 - 1.07 mMol/L 06/06/2024 4:17 AM [facility] Blood VENOUS BLOOD SPECIMEN / Unknown Venipuncture / Unknown 06/06/2024 3:33 AM EST 06/06/2024 3:47 AM EST Shahnaz Scanlon MD CHEMISTRY ORDERABLES [facility] [place] [address] * (ABNORMAL) Basic Metabolic Panel (06/06/2024 3:33 [...] Organization Address [facility]/ZIP Co de Phone Number [facility] [place] [address] * (ABNORMAL) POC, GLUCOSE (06/05/2024 10:31 PM EDT) Glucometer, POC 238(H) 65 - 199 mg/dL 06/05/2024 10:31 PM EDT [facility] Comment:Supplemental ranges: <140 mg/dL before meals <180 mg/dL all other times of the day. Blood CAPILLARY BLOOD / Unknown 06/05/2024 10:31 PM EDT 06/05/2024 10:31 PM EDT Melida Valdes MD POINT OF CARE TEST O RDERABLES [facility] [place] [address] * (ABNORMAL) POC, GLUCOSE (06/05/2024 4:22 PM EDT) Glucometer, POC 205(H) 65 - 199 mg/dL 06/05/2024 4:22 PM EDT [facility] Comment:Supplemental ranges: <140 mg/dL before meals <180 mg/dL all other times of the day. Blood CAPILLARY BLOOD / Unknown 06/05/2024 4:22 PM EDT 06/05/2024 4:23 PM EDT Melida Valdes MD POINT OF CARE TEST O NIKA Performing Organization Address City/[facility]/ZIP Co de Phone Number [facility] [place] [address] * (ABNORMAL) POC, GLUCOSE (06/05/2024 11:34 AM EDT) Glucometer, POC 211(H) 65 - 199 mg/dL 06/05/2024 11:34 AM EDT [facility] Comment:Supplemental ranges: <140 mg/dL before meals <180 mg/dL all other times of the day. Blood CAPILLARY BLOOD / Unknown 06/05/2024 11:34 AM EDT 06/05/2024 11:34 AM EDT Melida Valdes MD POINT OF CARE TEST O NIKA Performing Organization Address City/[facility]/ZIP Co de Phone Number [facility] [place] [address] * Potassium (06/05/2024 9:04 AM EDT) Potassium 4.3 3.5 - 5.0 mMol/L 06/05/2024 9:50 AM EDT [facility] Blood VENOUS BLOOD SPECIMEN / Unknown Venipuncture / Unknown 06/05/2024 9:04 AM EDT 06/05/2024 9:21 AM EDT Shahnaz Scanlon MD CHEMISTRY ORDERABLES Performing Organization Address City/[facility]/ZIP Co de Phone Number [facility] [place] [address] * POC, GLUCOSE (06/05/2024 7:27 AM EDT) [...] Organization Address [facility] Co de Phone Number [facility] [place] [address] * Heparin (unfractionated) Level (06/05/2024 3:44 AM [...] Organization Address [facility]/ZIP Co de Phone Number [facility] [place] [address] * (ABNORMAL) CBC (with Diff) (06/05/2024 3:44 AM EDT) White Blood Cell 10.83(H) 4.00 - 9.50 x10(3)/mc L 06/05/2024 3:56 AM [facility] Red Blood Cell 5.07 4.58 - 5.54 x10(6)/mc L 06/05/2024 3:56 AM [facility] Hemoglobin 15.3 13.7 - 16.5 g/dL 06/05/2024 3:56 AM [facility] Hematocrit 46.8 40.5 - 48.5 % 06/05/2024 3:56 AM [facility] Mean Cell Volume 92.3 82.9 - 93.1 fL 06/05/2024 3:56 AM [facility] Mean Cell Hemoglobin 30.2 27.5 - 32.1 pg 06/05/2024 3:56 AM [facility] Mean Cell Hemoglobin Concentration 32.7 32.0 - 35.7 g/dL 06/05/2024 3:56 AM [facility] Platelet 219 145 - 357 x10(3)/mc L 06/05/2024 3:56 AM [facility] Mean Platelet Volume 9.4 7.6 - 12.9 fL 06/05/2024 3:56 AM [facility] RDW Standard Deviation 46.7(H) 36.0 - 45.0 fL 06/05/2024 3:56 AM [facility] RDW coefficient of variation 13.9(H) 11.4 - 13.8 % 06/05/2024 3:56 AM [facility] NRBC% auto 0.0 % 06/05/2024 3:56 AM [facility] NRBC Absolute <0.01 <0.01 x10(3)/mc L 06/05/2024 3:56 AM [facility] Neutrophil % 61.5 % 06/05/2024 3:56 AM [facility] Neutrophil Absolute (ANC) - Automated 6.65(H) 1.70 - 6.10 x10(3)/mc L 06/05/2024 3:56 AM EDT [facility] Lymph % 24.0 % 06/05/2024 3:56 AM EDT [facility] Lymph Absolute 2.60 0.90 - 3.20 x10(3)/mc L 06/05/2024 3:56 AM EDT [facility] Monocyte % 10.9 % 06/05/2024 3:56 AM EDT [facility] Monocyte Absolute 1.18(H) [...] HEMATOLOGY ORDERABLE S [facility] [place] [address] * Magnesium (06/05/2024 3:44 AM EDT) Magnesium 0.92 0.69 - 1.07 mMol/L 06/05/2024 4:20 AM T [facility] Blood VENOUS BLOOD SPECIMEN / Unknown Venipuncture / Unknown 06/05/2024 3:44 AM EDT 06/05/2024 3:50 AM EDT Shahnaz Scanlon MD CHEMISTRY ORDERABLES [facility] [place] [address] * (ABNORMAL) Basic Metabolic Panel (06/05/2024 3:44 AM EDT) Glucose 155 65 - 199 mg/dL 06/05/2024 4:20 AM T [facility] Comment:Glucose Concentratio n >=200 mg/dL plus symptoms is consistent with Diabetes Mellitus. Blood Urea Nitrogen 25(H) 10 - 20 mg/dL 06/05/2024 4:20 AM EDT [facility] Creatinine 1.16 0.80 - 1.50 mg/dL 06/05/2024 4:20 AM [facility] Sodium 136 135 - 145 mMol/L 06/05/2024 4:20 AM [facility] Potassium 3.9 3.5 - 5.0 mMol/L 06/05/2024 4:20 AM [facility] Chloride 95(L) 98 - 107 mMol/L 06/05/2024 4:20 AM [facility] Carbon Dioxide 29 22 - 31 mMol/L 06/05/2024 4:20 AM [facility] Anion Gap 12 5 - 15 mMol/L 06/05/2024 4:20 AM [facility] Calcium 9.2 8.5 - 10.5 mg/dL 06/05/2024 4:20 AM [facility] Est Glomerular Filtration Rate - Male 69 mL/min/1. 73 m?? 06/05/2024 4:20 [facility] Comment: This patient's [...] Scanlon MD CHEMISTRY ORDERABLES Performing Organization Address City/[facility]/ZIP Co de Phone Number [facility] [place] [address] * Potassium (06/04/2024 10:34 PM EDT) Potassium 3.7 3.5 - 5.0 mMol/L 06/04/2024 11:03 PM EDT [facility] Blood VENOUS BLOOD SPECIMEN / Unknown Venipuncture / Unknown 06/04/2024 10:34 PM EDT 06/04/2024 10:39 PM EDT Shahnaz Scanlon MD CHEMISTRY ORDERABLES Performing Organization Address City/[facility]/ZIP Co de Phone Number [facility] [place] [address] * POC, GLUCOSE (06/04/2024 7:43 PM EDT) [...] Organization Address [facility] Co de Phone Number [facility] [place] [address] * Potassium (06/04/2024 4:35 PM EDT) Potassium 4.0 3.5 - 5.0 mMol/L 06/04/2024 5:32 PM EDT [facility] Blood VENOUS BLOOD SPECIMEN / Unknown Venipuncture / Unknown 06/04/2024 4:35 PM EDT 06/04/2024 4:40 PM EDT Shahnaz Scanlon MD CHEMISTRY ORDERABLES Performing Organization Address [facility] Co de Phone Number [facility] [place] [address] * POC, GLUCOSE (06/04/2024 3:26 PM EDT) [...] Organization Address [facility]/ZIP Co de Phone Number [facility] [place] [address] * POC, GLUCOSE (06/04/2024 11:09 AM EDT) [...] Organization Address [facility] Co de Phone Number [facility] [place] [address] * Heparin (unfractionated) Level (06/04/2024 10:41 AM [...] MD HEMATOLOGY ORDERABLE S Performing Organization Address City/[facility]/ZIP Co de Phone Number [facility] [place] [address] * Potassium (06/04/2024 10:41 AM EDT) Potassium 4.0 3.5 - 5.0 mMol/L 06/04/2024 11:11 AM EDT [facility] Blood VENOUS BLOOD SPECIMEN / Unknown Venipuncture / Unknown 06/04/2024 10:41 AM EDT 06/04/2024 10:46 AM EDT Shahnaz Scanlon MD CHEMISTRY ORDERABLES Performing Organization Address City/[facility]/ZIP Co de Phone Number [facility] [place] [address] * POC, GLUCOSE (06/04/2024 7:11 AM EDT) [...] Organization Address [facility] Co de Phone Number [facility] [place] [address] * Heparin (unfractionated) Level (06/04/2024 4:38 AM [...] HEMATOLOGY ORDERABLE S [facility] [place] [address] * (ABNORMAL) CBC (with Diff) (06/04/2024 4:38 AM EDT) White Blood Cell 11.45(H) 4.00 - 9.50 x10(3)/mc L 06/04/2024 5:12 AM EDT [facility] Red Blood Cell 5.35 4.58 - 5.54 x10(6)/mc L 06/04/2024 5:12 AM EDT [facility] Hemoglobin 16.0 13.7 - 16.5 g/dL 06/04/2024 5:12 AM EDT [facility] Hematocrit 49.6(H) 40.5 - 48.5 % 06/04/2024 5:12 AM EDT [facility] Mean Cell Volume 92.7 82.9 - 93.1 fL 06/04/2024 5:12 AM EDT [facility] Mean Cell Hemoglobin 29.9 27.5 - 32.1 pg 06/04/2024 5:12 AM EDT [facility] Mean Cell Hemoglobin Concentration 32.3 32.0 - 35.7 g/dL 06/04/2024 5:12 AM EDT [facility] Platelet 222 145 - 357 x10(3)/mc L 06/04/2024 5:12 AM EDT [facility] Mean Platelet Volume 9.5 7.6 - 12.9 fL 06/04/2024 5:12 AM EDT [facility] RDW Standard Deviation 47.6(H) 36.0 - 45.0 fL 06/04/2024 5:12 AM EDT [facility] RDW coefficient of variation 14.1(H) 11.4 - 13.8 % 06/04/2024 5:12 AM [facility] NRBC% auto 0.0 % 06/04/2024 5:12 AM [facility] NRBC Absolute <0.01 <0.01 x10(3)/mc L 06/04/2024 5:12 AM [facility] Neutrophil % 60.3 % 06/04/2024 5:12 AM [facility] Neutrophil Absolute (ANC) - Automated 6.91(H) 1.70 - 6.10 x10(3)/mc L 06/04/2024 5:12 AM [facility] Lymph % 25.1 % 06/04/2024 5:12 AM [facility] Lymph Absolute 2.87 0.90 - 3.20 x10(3)/mc L 06/04/2024 5:12 AM [facility] Monocyte % 10.6 % 06/04/2024 5:12 AM [facility] Monocyte Absolute 1.21(H) 0.30 - 0.90 x10(3)/mc L 06/04/2024 5:12 AM [facility] Eos % 2.8 % 06/04/2024 5:12 AM [facility] Eos Absolute 0.32 0.00 - 0.40 x10(3)/mc L 06/04/2024 5:12 AM [facility] Basophil % 0.7 % 06/04/2024 5:12 AM [facility] Baso Absolute 0.08 0.00 - 0.10 x10(3)/mc L 06/04/2024 5:12 AM [facility] Immature Gran % 0.5 % 5:12 AM [facility] Immature Gran Absolute 0.06(H) 0.00 - 0.04 x10(3)/mc L 06/04/2024 5:12 AM EDT [facility] Blood VENOUS BLOOD SPECIMEN / Unknown Venipuncture / Unknown 06/04/2024 4:38 AM EDT 06/04/2024 5:07 AM EDT Shahnaz Scanlon MD HEMATOLOGY ORDERABLE S [facility] [place] [address] * Magnesium (06/04/2024 4:38 AM EDT) Magnesium 0.84 0.69 - 1.07 mMol/L 06/04/2024 5:35 AM EDT [facility] Blood VENOUS BLOOD SPECIMEN / Unknown Venipuncture / Unknown 06/04/2024 4:38 AM EDT 06/04/2024 5:07 AM EDT Shahnaz Scanlon MD CHEMISTRY ORDERABLES [facility] [place] [address] * (ABNORMAL) Basic Metabolic Panel (06/04/2024 4:38 [...] - 15 mMol/L 06/04/2024 5:35 AM EDT [facility] Calcium 9.0 8.5 - 10.5 mg/dL 06/04/2024 5:35 AM EDT [facility] Est [...] MD CHEMISTRY ORDERABLES [facility] [place] [address] * Heparin (unfractionated) Level (06/03/2024 8:58 PM [...] Organization Address [facility] Co de Phone Number [facility] [place] [address] * POC, GLUCOSE (06/03/2024 8:05 PM EDT) Glucometer, POC 136 65 - 199 mg/dL 06/03/2024 8:05 PM EDT [facility] Comment:Supplemental ranges: <140 mg/dL before meals <180 mg/dL all other times of the day. Blood CAPILLARY BLOOD / Unknown 06/03/2024 8:05 PM EDT 06/03/2024 8:05 PM EDT Delroy Fofana MD POINT OF CARE TEST ORDERABLES Performing Organization Address City/[facility]/ZIP Co de Phone Number [facility] [place] [address] * POC, GLUCOSE (06/03/2024 5:48 PM EDT) Glucometer, POC 191 65 - 199 mg/dL 06/03/2024 5:48 PM EDT [facility] Comment:Supplemental ranges: <140 mg/dL before meals <180 mg/dL all other times of the day. Blood CAPILLARY BLOOD / Unknown 06/03/2024 5:48 PM EDT 06/03/2024 5:49 PM EDT Delroy Fofana MD POINT OF CARE TEST ORDERABLES [facility] [place] [address] * CT Chest wo Contrast (Generic) (06/03/2024 4:33 PM EDT) WORKSTATION ID [id number] RAD Anatomical Region Laterality Modality Chest Computed Tomogra phy Impressions 06/03/2024 4:47 PM EDT Cardiomegaly. Biventricular ICD leads in place. Thank you for letting us participate in the care of this patient. ??If you are a health care provider and have any questions regarding this report, please contact the number below. ??For patients who have questions please contact the health pet care attendant that requested your imaging first. ? Narrative [...] patients who have questions please contactthe health pet care attendant that requested your imaging first. Electronically signed by: Stuart Aponte MD, [facility]([phone]), at 06/03/2024 4:47 PM Bobby Loja MD IMG CT ORDERABLES * Carotid Duplex, Bilateral (06/03/2024 2:19 PM EDT) VB Text Report Department: Vascular Surgery Lab Patient: [id number] (GEORGE MEHTA) CPT: 79215 Referring Physician: BOBBY LOJA ?? Phone: Indications: [...] HEMATOLOGY ORDERABLE S [facility] [place] [address] * POC, GLUCOSE (06/03/2024 11:14 AM EDT) Glucometer, POC 166 65 - 199 mg/dL 06/03/2024 11:14 AM EDT [facility] Comment:Supplemental ranges: <140 mg/dL before meals <180 mg/dL all other times of the day. Blood CAPILLARY BLOOD / Unknown 06/03/2024 11:14 AM EDT 06/03/2024 11:14 AM EDT Delroy Fofana MD POINT OF CARE TEST ORDERABLES Performing Organization Address City/[facility]/ZIP Co de Phone Number [facility] [place] [address] * (ABNORMAL) Troponin-T, High Sensitivity 3 Hour [...] troponin value can be found in the [facility] Test Catalog Troponin - https://one-.testcatalog.org/catalogs/565/files/22248 Reference: Fourth Proctor Definition of Myocardial Infarction. Journal of the [employer] 2018;72:0244-0857 Troponin-T, HS 3 hr delta 06/03/2024 10:50 AM EDT [facility] Comment:Delta troponin value not calculated, sample collected outside of delta calculation time limit. Blood VENOUS BLOOD SPECIMEN / Unknown IP Care Team Draw / Unknown 06/03/2024 10:06 AM EDT 06/03/2024 10:15 AM EDT Delroy Fofana MD CHEMISTRY ORDERABLE S [facility] [place] [address] * ECHO COMPLETE W CONTRAST (06/03/2024 8:46 AM EDT) Anatomical Region Laterality Modality Cardiac Other 06/03/2024 6:52 AM EDT Narrative 06/03/2024 10:32 AM EDT [address] [place] [address] ? Echocardiogram Report Name: GEORGE MEHTA ?Study Date: 06/03/2024 06:52 AM : 1955 ? Height: 168 cm ? Account: [id number] Age: 69 yrs ? Weight: 102 kg Gender: Male ?BSA: 2.1 m2 Ordering Physician: SHAHNAZ SCANLON Referring Physician: NEHAL QUINTERO Performed By: Sara Kebede RDCS Reason For Study: STEMI Exam Location: [facility]. Interpretation Summary -Left ventricular systolic [...] fellow performed study of today's date). Procedure Complete-[id number]. Image enhancement Optison was used for left [...] Note Jonnie Jordan MD - 06/03/2024 [address] [place] [address] Echocardiogram Report Name: GEORGE MEHTA Study Date: 406:52 AM : 1955 Height: 168 cm Account: [id number] Age: 69 yrs Weight: 102 kg Gender: Male BSA: 2.1 m2 Ordering Physician: SHAHNAZ SCANLON Referring Physician: NEHAL QUINTERO Performed By: Sara Kebede RDCS Reason For Study: STEMI Exam Location: [facility]. Interpretation Summary -Left ventricular systolic [...] a fellow performed study of's date). Procedure Complete-[id number]. Image enhancement Optison was used for left [...] troponin value can be found in the [facility] Test Catalog Troponin - https://[email or web address]-dh.testcatalog.org/catalogs/565/files/54543 Reference: Fourth Proctor Definition of Myocardial Infarction. Journal of the [employer] 2018;72:1808-5672 Troponin-T, HS 1 hr delta 5 ng/L [...] CHEMISTRY ORDERABLE S [facility] [place] [address] * POC, GLUCOSE (06/03/2024 7:54 AM EDT) Glucometer, POC 195 65 - 199 mg/dL 06/03/2024 7:55 AM EDT [facility] Comment:Supplemental ranges: <140 mg/dL before meals <180 mg/dL all other times of the day. Blood CAPILLARY BLOOD / Unknown 06/03/2024 7:54 AM EDT 06/03/2024 7:55 AM EDT Nuha Rojo MD POINT OF CARE TEST ORDERABLES Performing Organization Address City/[facility]/ZIP Co de Phone Number [facility] [place] [address] * (ABNORMAL) Troponin-T, High Sensitivity (06/03/2024 7:39 AM EDT) [facility] Troponin-T, High Sensitivity Initial 284(H) <=22 ng/L [...] troponin value can be found in the [facility] Test Catalog Troponin - [email or web address] Reference: Fourth Proctor Definition of Myocardial Infarction. Journal of the [employer] 2018;72:1019-2217 Blood VENOUS BLOOD SPECIMEN / Unknown IP Care Team Draw / Unknown 06/03/2024 7:39 AM EDT 06/03/2024 7:48 AM EDT Delroy Fofana MD CHEMISTRY ORDERABLE S [facility] [place] [address] * (ABNORMAL) Troponin-T, High Sensitivity 3 Hour (06/03/2024 5:11 AM EDT) Pathologist [facility] Troponin-T, High Sensitivity 254(H) <=22 ng/L 06/03/2024 [...] troponin value can be found in the [facility] Test Catalog Troponin - [email or web address] Reference: Fourth Proctor Definition of Myocardial Infarction. Journal of the [employer] 2018;72:9622-2517 Troponin-T, HS 3 hr delta 46 ng/L [...] MD CHEMISTRY ORDERABLES [facility] [place] [address] * (ABNORMAL) Troponin-T, High Sensitivity 1 Hour (06/03/2024 3:07 AM EDT) [facility] Center Troponin-T, High Sensitivity 218(H) <=22 ng/L 06/03/2024 [...] troponin value can be found in the [facility] Test Catalog Troponin - https://one-dh.testcatalog.org/catalogs/565/files/38670 Reference: Fourth Proctor Definition of Myocardial Infarction. Journal of the [place] College [employer] 2018;72:1441-4445 Troponin-T, HS 1 hr delta 10 ng/L [...] MD CHEMISTRY ORDERABLES [facility] [place] [address] * XR Chest One View (06/03/2024 2:41 AM EDT) WORKSTATION ID [id number] RAD Anatomical Region Laterality Modality Chest N/A Digital Radiogra phy Impressions 06/03/2024 3:06 AM EDT No radiographically evident acute cardiopulmonary process. Thank you for letting us participate in the care of this patient. ??If you are a health care provider and have any questions regarding this report, please contact the number below. ??For patients who have questions please contact the health pet care attendant that requested your imaging first. ? Electronically signed by: Corazon Mauro MD, [facility] ([phone]), at 06/03/2024 3:06 AM Narrative 06/03/2024 3:06 [...] patients who have questions please contactthe health pet care attendant that requested your imaging first. Electronically signed by: Corazon Mauro MD, [facility]([phone]), at 06/03/2024 3:06 AM Shahnaz Scanlon MD [...] HEMATOLOGY ORDERABLE S [facility] [place] [address] * (ABNORMAL) Troponin-T, High Sensitivity (06/03/2024 2:13 [...] troponin value can be found in the [facility] Test Catalog Troponin - https://one-.testcatalog.org/catalogs/565/files/29066 Reference: Fourth Proctor Definition of Myocardial Infarction. Journal of the [employer] College of [employer]iology 2018;72:5830-5025 Blood VENOUS BLOOD SPECIMEN / Unknown IP Care Team Draw / Unknown 06/03/2024 2:13 AM EDT 06/03/2024 2:32 AM EDT Shahnaz Scanlon MD CHEMISTRY ORDERABLES Performing Organization Address City/[facility]/ZIP Co de Phone Number [facility] [place] [address] * Magnesium (06/03/2024 2:13 AM EDT) Magnesium 0.86 0.69 - 1.07 mMol/L 06/03/2024 3:02 AM EDT [facility] Blood VENOUS BLOOD SPECIMEN / Unknown IP Care Team Draw / Unknown 06/03/2024 2:13 AM EDT 06/03/2024 2:32 AM EDT Shanhaz Scanlon MD CHEMISTRY ORDERABLES Performing Organization Address City/[facility]/ZIP Co de Phone Number [facility] [place] [address] * Basic Metabolic Panel (06/03/2024 2:13 AM [...] 71 mL/min/1. 73 m?? 06/03/2024 3:02 AM [facility] Comment: This patient's estimated GFR was [...] MD CHEMISTRY ORDERABLES [facility] [place] [address] * (ABNORMAL) CBC (with Diff) (06/03/2024 2:13 AM EDT) White Blood Cell 11.16(H) 4.00 - 9.50 x10(3)/mc L 06/03/2024 2:37 AM EDT [facility] Red Blood Cell 5.09 4.58 - 5.54 x10(6)/mc L 06/03/2024 2:37 AM [facility] Hemoglobin 15.0 13.7 - 16.5 g/dL 06/03/2024 2:37 AM [facility] Hematocrit 47.4 40.5 - 48.5 % 06/03/2024 2:37 AM [facility] Mean Cell Volume 93.1 82.9 - 93.1 fL 06/03/2024 2:37 AM [facility] Mean Cell Hemoglobin 29.5 27.5 - 32.1 pg 06/03/2024 2:37 AM [facility] Mean Cell Hemoglobin Concentration 31.6(L) 32.0 - 35.7 g/dL 06/03/2024 2:37 AM [facility] Platelet 217 145 - 357 x10(3)/mc L 06/03/2024 2:37 AM [facility] Mean Platelet Volume 9.5 7.6 - 12.9 fL 06/03/2024 2:37 AM [facility] RDW Standard Deviation 49.0(H) 36.0 - 45.0 fL 06/03/2024 2:37 AM [facility] RDW coefficient of variation 14.1(H) 11.4 - 13.8 % 06/03/2024 2:37 AM [facility] NRBC% auto 0.0 % 06/03/2024 2:37 AM [facility] NRBC Absolute <0.01 <0.01 x10(3)/mc L 06/03/2024 2:37 AM [facility] Neutrophil % 58.4 % 06/03/2024 2:37 AM [facility] Neutrophil Absolute (ANC) - Automated 6.51(H) 1.70 - 6.10 x10(3)/mc L 06/03/2024 2:37 AM [facility] Lymph % 29.9 % 06/03/2024 2:37 AM [facility] Lymph Absolute 3.34(H) 0.90 - 3.20 x10(3)/mc L 06/03/2024 2:37 AM EDT [facility] Monocyte % 8.1 % 06/03/2024 2:37 AM EDT [facility] Monocyte Absolute 0.90 0.30 - 0.90 x10(3)/mc L 06/03/2024 2:37 AM EDT [facility] Eos % 2.4 % [...] HEMATOLOGY ORDERABLE S [facility] [place] [address] * Lipid Panel (Reflex Direct LDL) (06/03/2024 2:13 AM EDT) Cholesterol, Total 76 mg/dL 06/03/2024 3:02 AM EDT [facility] Comment: Desirable: < 200 mg/dL Borderline High: 200 - 239 mg/dL High: > or = 240 mg/dL Triglyceride 75 mg/dL 06/03/2024 3:02 AM T [facility] Comment: Normal: <150 mg/dL Borderline High: 150-199 mg/dL High: 200-499 mg/dL Very High: > or =500 mg/dL HDL Cholesterol 39 mg/dL 3:02 AM T [facility] Comment:Males: High Risk: <4 0 mg/dL LDL Cholesterol 21 mg/dL 3:02 AM [facility] Comment: Desirable: <100 mg/dL Above Desirable: 100-129 mg/dL Borderline High: 130-159 mg/dL High: 160-189 mg/dL Very High: > or =190 mg/dL Note: LDL calculation updated to the NIH LDL formula as of 03/07/2024 Non-HDL Cholesterol 37 mg/dL 06/03/2024 3:02 AM [facility] Comment: Desirable: <130 mg/dL Above Desirable: [...] ACC/AHA Guidelines (most recently Bruce hermosillo al. [facility] 05/07/22): * For individuals with atherosclerotic [...] artery disease) Shahnaz Scanlon MD CHEMISTRY ORDERABLES [facility] [place] [address] * (ABNORMAL) APTT (06/03/2024 2:13 AM EDT) [...] HEMATOLOGY ORDERABLE S [facility] [place] [address] * Prothrombin Time (06/03/2024 2:13 AM EDT) [...] HEMATOLOGY ORDERABLE S [facility] [place] [address] * Hepatic Function Panel (06/03/2024 2:13 AM [...] Scanlon MD CHEMISTRY ORDERABLES Performing Organization Address City/[facility]/ZIP Co de Phone Number [facility] [place] [address] * (ABNORMAL) pro-Brain Natriuretic Peptide (06/03/2024 2:13 AM EDT) NT-proBNP 1,628(H) <=124 pg/mL 06/03/2024 4:15 AM EDT [facility] Blood VENOUS BLOOD SPECIMEN / Unknown IP Care Team Draw / Unknown 06/03/2024 2:13 AM EDT 06/03/2024 2:32 AM EDT Shahnaz Scanlon MD CHEMISTRY ORDERABLES [facility] [place] [address] * Phosphorus (06/03/2024 2:13 AM EDT) Phosphorus 4.4 2.5 - 4.5 mg/dL 06/03/2024 3:02 AM EDT [facility] Blood VENOUS BLOOD SPECIMEN / Unknown IP Care Team Draw / Unknown 06/03/2024 2:13 AM EDT 06/03/2024 2:32 AM EDT Shahnaz Scanlon MD CHEMISTRY ORDERABLES Performing Organization Address [facility] Co de Phone Number [facility] [place] [address] * EKG 12 Lead (06/03/2024 1:45 AM EDT) Ventricular rate 63 BPM MUSE SYSTEM Atrial Rate 63 BPM MUSE SYSTEM P-R Interval 168 ms MUSE SYSTEM QRS Duration 96 ms MUSE SYSTEM Q-T Interval 400 ms MUSE SYSTEM QTC Calculated (Bezet) 409 ms MUSE SYSTEM Calculated P Isabel 65 degrees MUSE SYSTEM Calculated R Isabel 70 degrees MUSE SYSTEM Calculated T Isabel -86 degrees MUSE SYSTEM INTERPRETATION Atrial-sensed ventricular-paced rhythm Abnormal ECG No previous ECGs available I personally reviewed the tracing and edited the fellows interpretation Confirmed by fellow Sunni Agudelo ([id number]) on 06/04/2024 3:55:40 PM Confirmed by MD Cantrell Jonathan C. ([id number]) on 06/05/2024 11:46:48 AM MUSE SYSTEM 06/03/2024 1:45 AM EDT 06/05/2024 11:46 AM EDT Shahnaz Scanlon MD ECG ORDERABLES Performing Organization Address [facility] Co de Phone Number MUSE SYSTEM * CARDIAC CATHETERIZATION (06/03/2024 12:42 AM EDT) Anatomical Region Laterality Modality Other Narrative 06/04/2024 2:22 PM EDT ?[facility] ? Cardiac Catheterization/Intervention Report ? Patient Name: George Mehta L. ? Procedure Date: 06/02/2024 ? A #: [id number] ? Primary Physician: Nuha Shen I ? Case #: [id number] ? File Name: [id number] ? Catheterization Order Number: [id number] ? [facility] ? Final Report [place], [place] ? Patient Name: ? George L. Tyson ? ID#: ?[id number] ? : ?1955 ? Procedure Date: ? June 02, 2024 ? Case #: ? [id number] ? Room: ? 5 ? Case Physician: [...] procedure was Emergent. The indication for ?the label printing machinist visit is ACS less than or equal [...] ?3.5 guiding catheter and a 3.5 Fr [place] 20 Mhz using Manual ?pullback. ??Imaging was [...] 3.5 guiding catheter and a 3.5 Fr [place] 20 Mhz using ?Manual pullback. ??Imaging was [...] Procedure Note Nuha Shen MD - 07/20/2024 [facility] Cardiac Catheterization/Intervention Report Patient Name: George Mehta Procedure Date: 06/02/2024 A #: [id number] Primary Physician: Nuha Shen I Case #: [id number] File Name: [id number] Catheterization Order Number: [id number] [facility] FinalReport Patient Name: George Mehta ID#:[id number] :1955 Procedure Date: June 02, 2024 Case [...] was designated as ASA Class IV. The [facility] clinicalfrailty scale is 5: Mildly Frail. Diagnostic Tests: Electrocardiography: EKG was assessed by ECG. EKG was Abnormal. EKG showed STDeviation >= 0.5 mm. Medications Prior to Procedure: Sacubitril and Valsartan, Aspirin, Beta Erik, Statin and Thrombolytic (any). Indications for Diagnostic Cath: The priority of the diagnostic procedure was Emergent. Theindication for the label printing machinist visit is ACS less than or equal [...] units of heparin were administered. A total [id number] of Omnipaque were opened, 84cc of Omnipaque were administered whg70ep of Omnipaque were wasted. Radiation: Fluoro time [...] 3.5 guiding catheter and a 3.5 Fr [place] 20 Mhz usingManual pullback. Imaging was successful. [...] 3.5 guiding catheter and a 3.5 Fr [place] 20 Mhzusing Manual pullback. Imaging was successful. Indication: IVUS performed for pre intervention planning. Findings Pre-Intervention: scattered plaque, calcification and [id number] degrees calcification. Findings Post-Intervention: Stent not imaged [...] * POC, GLUCOSE (06/02/2024 11:31 PM EDT) [facility] Signature Glucometer, POC 156 65 - 199 mg/dL 06/02/2024 11:31 PM EDT [facility] Comment:Supplemental ranges: <140 mg/dL before meals <180 mg/dL all other times of the day. Blood CAPILLARY BLOOD / Unknown 06/02/2024 11:31 PM EDT 06/02/2024 11:31 PM EDT Narrative Authorizing Provider Result Saranya Rojo MD POINT OF CARE TEST ORDERABLES Performing Organization Address City/State/[facility] Co de Phone Number [facility] [place] [address] documented in this encounter Visit Diagnoses Diagnosis STEMI (ST elevation myocardial infarction)- Primary Acute myocardial infarction, unspecified site, episode of care unspecified ST elevation myocardial infarction (STEMI), unspecified artery Coronary artery disease involving council coronary artery of council heart without angina pectoris S/P CABG x 3 Postsurgical aortocoronary bypass status Acute on chronic heart failure with reduced ejection fraction (HFrEF, <= 40%) Coronary artery disease involving council coronary artery of council heart without angina pectoris Type 2 diabetes mellitus Type II or unspecified type diabetes mellitus without mention of complication, not stated as uncontrolled Cardiac resynchronization therapy defibrillator (LEACH TANK TENDER-D) - Medtronic Amplia Cardiomyopathy, ischemic Other specified [...] 6 hours upon arrival to Unit. Give VT if unable to take PO, Routine Given [...] dose on Fri06/14/24 at 2100, Until Discontinued, [place] teeth and / or gums. Scan the CHG vial in the ICAgen Q-Care Oral Care Kit from floor stock. Ventilator-associated pneumonia prophylaxis For use in ICU/Critical care locations ONLY. Obtain kit from Floor Stock location. Scan CHG vial in the ICAgen Q-Care Oral Care Kit, Routine Given 06/14/2024 [...] restart at 50% of previous rate. Call supervisor melt house if goal not achieved at maximum rate. [...] in sodium chloride 0.9% infusion (for CVCC, Production Control Supervisor, OR use only) 3-5 mL/hr, Intravenous, [...] MEALS, First dose (after last modification) on [facility] 06/19/24 at 0800, Until Discontinued, MEAL [...] MEALS, First dose (after last modification) on [facility] 06/17/24 at 0800, Until Discontinued, MEAL [...] MEALS, First dose (after last modification) on [facility] 06/17/24 at 1700, Until Discontinued, MEAL [...] TIMES DAILY WITH MEALS, First dose on [place] 06/06/24 at 1200, Until Discontinued, MEAL ASSOCIATED Give 1 unit for every 10 grams carbohydrate. Hold if not eating or if BG less than 70 mg/dL. , Routine Given 06/06/2024 12:25 PM EST 4 Units insulin lispro (HumaLOG;Admelog) (100 unit/mL) subcutaneous injection vial 1-10 Units 1-10 Units, Subcutaneous, EVERY 4 HOURS SCHEDULED, First dose (after last modification) on [facility] 06/19/24 at 0800, Until Discontinued, CORRECTION [...] 2100, Last dose on Fri06/23/24 at 0900, Inside Sales Advisor recommended duration is 3 days., Routine Given [...] 8:02 PM EST 2 tablets sodium chloride (Mower) 0.65 % nasal spray 1 spray 1 [...] 2.0 L/min/M2. Maximum volume 2 L. Call supervisor melt house for additional fluid orders: pager #[phone]. Rate/Dose Verify 06/15/2024 10:00 AM EST 1 [...] Routine 175 (Given - Provider: Mary Lou aLne RN) 174 (Given - Provider: Michelle Orozco [...] 0823 (Given - Provider: Mary Lou Laen RN) [...] 2100, Last dose on Fri06/23/24 at 0900, Inside Sales Advisor recommended duration is 3 days., Routine 2043 [...] oral route first line., Routine sodium chloride (Mower) 0.65 % nasal spray 1 spray 1 [...] 6 hours upon arrival to Unit. Give VT if unable to take PO, Routine Group [...] Routine documented in this encounter Care Teams Anvilsmith Relationship Specialty Start Date End Date Mauro Berumen MD [address] [place] [address] PCP - General Family Medicine 06/02/24 documented as of this encounter
--- OUTSIDE RECORDS SUMMARY | 2024-08-20 10:59 | XMS_ITS | Encounter Summary ---
Author Organization [facility] Address [facility] [place] [address] Care Team Providers Care Recovery Engineer Name Role Phone Mauro Berumen MD Primary Care Provider [phone] Encounter Details Date Type Department Care Team (Latest Contact Info) Description 06/14/2024 Unscheduled Encounter Cardiology at [address] [place] [phone] Ross Corbin PA [facility] [place] [address] Cardiac resynchronization therapy defibrillator (HOSPICE CARE CONSULTANT-D) in place [Z95.810] Social History Tobacco Use [...] in a detention (including now)? No 06/03/2024 DH IPV Inpatient [...] AM EST Cardiac Device Interrogation Arturo Mehta [id number] 06/14/2024 History: Arturo Mehta is a 69 year old male with a PMH significant for HTN, HLD, DM2, current TUD (abstinent since admission), ASCVD with multiple prior RI and PCIs, ICM/HFrEF LVEF 30% (all territories viable on cMRI) who is undergoing a CABG procedure and EP was asked to reprogram his HOSPICE CARE CONSULTANT-D device for the procedure. Vitals: Last Set of Vitals and range of vitals over past 24 hours: Range last 24 hrs Temperature Temp: [36 ??C (96.8 ??F)-37 ??C (98.6 ??F)] Heart Rate Heart Rate: [57-72] Blood Pressure BP: (99-138)/(66-86) Respiratory Rate Resp: [13-24] SpO2 SpO2: [90 %-98 %] Device Interrogation: Data Generator: MedSavedaily Amplia MRI Quad HOSPICE CARE CONSULTANT-D [id number] / [id number] - Left-sided implant; 06/16/19 RA Lead: Medtronic [id number] CapSureFix Novus [id number]; 06/16/19 RV Lead: Medtronic [id number] / [id number]; 06/16/19 LV Lead: Medtronic [id number] Attain Performa MRI / [id number]; 06/16/19 Diagnostics Pacing Mode: DDD @ 50/130 [...] scheduled. Ross Corbin PA-C, PhD 06/14/2024 Pager: [phone] documented in this encounter Plan of Treatment Upcoming Encounters Date Type Department Care Team (Late st Contact Info) Description 09/29/2024 2:00 PM EST Office Visit Cardiology at [address] [phone] Moi Falcon MD [facility] [place] [address] documented as of this encounter Visit Diagnoses Diagnosis Cardiac resynchronization therapy defibrillator (HOSPICE CARE CONSULTANT-D) in place [Z95.810] documented in this encounter Care Teams Recovery Engineer Relationship Specialty Start Date End Date Mauro Berumen MD [address] [place] [address] PCP - General Family Medicine 06/02/24 documented as of this encounter
--- OUTSIDE RECORDS SUMMARY | 2024-08-20 11:01 | XMS_ITS | Encounter Summary ---
Author Organization [facility] [place] [address] Care Team Providers Care Yarn Dumper Name Role Phone Mauro Berumen MD Primary Care Provider [phone] Reason for Visit * Auth/Cert Specialty Diagnoses / Procedures Referred By Carroll t Referred To Contact Diagnoses STEMI (ST elevation myocardial infarction) STEMI Procedures CARDIAC CATHETERIZATION EMERGENCY Delroy Monterroso MD [facility] [place] [address] [facility] Referral ID Status Reason Start Date Expiration Date Visits Re quested Visits Authorized [id number] 1 1 Encounter Details Date Type Department Care Team (Late st Contact Info) Description 06/14/2024 7:30 AM EST Anesthesia [place] [address] Hosea Ardon MD [facility] [place] [address] Joy Leyva CRNA [facility] [place] [address] Anesthesia Record Procedure Summary Procedure Name Responsible [...] by Zeferino Baker RN PIV 06/13/24; 1200; lijt-mya-bybagq catheter system; 20 gauge; metacarpal vein (top [...] temperature probe; 100% silicone; 14; inserted at [facility]; 1; 10; 10; drainage bag; 06/18/24; 1120 [...] Ardon MD 06/15/24 0000 by Yoli Donaldson COMPUTER NETWORKER [employer] Line 06/14/24; 0827; Sing le Lumen; [...] Recorded In the past 12 months has [employer], gas, oil, or water [employer] threatened to shut off services in your [...] any time in the past 12 m [facility], were you homeless or living in a [...] Procedure Summary Date: 06/14/24 Room / Location: [facility] OR [address] [place] [address] MAIN OR Anesthesia Start: 729 Anesthesia Stop: [...] All Anesthesia Providers: Anesthesiologist: Hosea Ardon MD PATIENT ACCOUNT SPECIALIST: Joy Leyva CRNA Vitals Value Taken Time [...] Diagnosis Date Noted Cardiac resynchronization therapy defibrillator (ADMINISTRATIVE TECH-D) - Medtronic Amplia 06/09/2024 Cardiomyopathy, ischemic 06/09/2024 Acute on chronic heart failure with reduced ejection fraction (HFrEF, <= 40%) 06/05/2024 Coronary artery disease involving [place] coronary artery of [place] heart without angina pectoris 06/05/2024 Type 2 [...] ACS/crushing chest pain, likely due to lateral AL, 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 LV ejection fraction [...] AM Reason For Study: STEMI Exam Location: [facility]. Interpretation Summary -Left ventricular systolic [...] 65 - 199 mg/dL -Type and screen ([facility]/CGP/RAFITA): Result Value Ref Range ABORH Type O POSITIVE PATIENT HISTORY Not Found Expires at [id number] on: 06/16/2024 ANTIBODY SCREEN AUTOMATED Negative T&S only valid at [facility] -POC, GLUCOSE: Result Value Ref Range Glucometer, POC 216 (H) 65 - 199 mg/dL -ABORH RECHECK: Result Value Ref Range ABORH Recheck O POSITIVE -Heparin (unfractionated) Level: Result Value Ref Range UF Heparin 0.76 IU/mL Region - Intrathoracic Cardiac Informed Consent: Plan discussed with PATIENT ACCOUNT SPECIALIST. Anesthesia Screening documented in this encounter Plan of Treatment Upcoming Encounters Date Type Department Care Team (Late st Contact Info) Description 09/29/2024 2:00 PM EST Office Visit Cardiology at [address] [phone] Moi Falcon MD [facility] [place] [address] documented as of this encounter Visit Diagnoses [...] mL/hr documented in this encounter Care Teams Yarn Dumper Relationship Specialty Start Date End Date Mauro Berumen MD [address] [place] [address] PCP - General Family Medicine 06/02/24 documented as of this encounter
--- OUTSIDE RECORDS SUMMARY | 2024-08-20 11:01 | XMS_ITS | Encounter Summary ---
Author Organization [facility] [place] [address] Care Team Providers Care Remnants Cutter Name Role Phone Mauro Berumen MD Primary Care Provider [phone] Reason for Visit * Auth/Cert Specialty Diagnoses / Procedures Referred By Carroll t Referred To Contact Diagnoses STEMI (ST elevation myocardial infarction) STEMI Procedures CARDIAC CATHETERIZATION EMERGENCY Delroy Monterroso MD [facility] [place] [address] [facility] Referral ID Status Reason Start Date Expiration Date Visits Re quested Visits Authorized [id number] 1 1 Encounter Details Date Type Department Care Team (Late st Contact Info) Description 06/14/2024 7:30 AM EST - 06/14/2024 2:08 PM EST Surgery [place] [address] Bobby Loja MD [facility] [place] [address] @CABG, USING ARTERIAL GRAFT;SINGLE ARTERIAL GRAFT (WRVU [...] any time in the past 12 m [facility], were you homeless or living in a [...] Patient Age: 69 y.o. Birthdate: 1955 Language: Arabic Race: Choose not to Disclose Ethnicity: Not nor Admit Date: 06/02/2024 Discharge Date: 06/21/2024 Attending Physician: Bobby Loja MD Follow-up Recommendations for Providers: Please continue routine management of cardiovascular risk factors including blood pressure, lipids,glucose, etc. Please note any changes to medications. Patient to follow up with PCP, Mauro Berumen MD, in 1-2 weeks. Patient to follow up with Director Of Regional Sales, Kristen Cardenas in 2-3 weeks. Patient to follow up with Cardiac Surgeon, Dr. Bobby Loja, in 4 wks. Inpatient Provider Contact Information: [facility] Section of Cardiac Surgery [facility] [address] FAX [phone] Discharge Diagnoses (Hospital Problems) Primary Diagnoses: STEMI [...] (WRVU 33.75) performed by Bobby Loja MD [facility] MAIN OR PRO CABG, ARTERY-VEIN, TWO N/A 06/14/2024 @CABG, TWO VENOUS GRAFTS & ARTERIAL GRAFT (WRVU 7.93) performed by Bobby Loja MD at [facility] OR PRO ENDOSCOPY W/VIDEO-ASST VEIN HARVEST, CABG N/A 06/14/2024 ENDOSCOPIC HARVEST VEIN(S) FOR CABG (WRVU 0.31) performed by Bobby Loja MD at [facility] MAIN OR PRO EXC MEDIASTINAL TUMOR N/A 06/14/2024 @EXCISION OF MEDIASTINAL TUMOR (WRVU 19.55) performed by Bobby Loja MD at [facility] MAIN OR PRO INSERT INTRA-AORTIC BALLOON ASST DEVICE PERCUTANEOUS N/A 06/13/2024 @INSERTION OF IABP,PERCUTANEOUS (WRVU 4.84) performed by Nuha Shen MD at [facility] CATH LABS PRO UNLISTED CARDIAC SURG PROCEDURE N/A 06/14/2024 EXPLORATION AND OVERSEW ATRIAL APPENDAGE (WRVU 5.94) performed by Bobby Loja MD at [facility] [place] Prior To Admission Medications Medications [...] y.o. male with a PMHx of previous SD s/p PCI x3, ICM/HFrEF (LVEF 30%) s/p ICD, DMII, HTN, HLD, remote melanoma, and smoker who presented to [facility] last night via EMS after developing acute, severe chest pain while watching TV. Patient was ruled in for STEMI, given TNK, ASA, plavix, heparin gtt, and sent to [facility] for coronary angiography. LHC demonstrated severely calcified left coronary system with notable LCx 75/80% lesions and LEAD COOK OM1 with ISR with collateral retrograde filling, [...] George Mehta was admitted to [facility] on 06/02/2024 via the CardiologyService with an anterior STEMI after receiving lytics at OSH. He was brought to the supervisor cytogenetic laboratory which showed severely calcified left coronary system with notable LCx 75/80% lesions and LEAD COOK OM1 with ISR with collateral retrograde filling, [...] 2 tablespoons of dried fruit. Milk and ii-ikfuz-trmro yogurt have 15 grams of carbs in a serving. A serving is 1 cup of milk or 3/4 cup (6 oz) of af-wnlrn-wfseq yogurt. Starchy vegetables have 15 grams of [...] your chest incision. Your surgeon, Dr. Bobby oLja and/or the Cardiac Surgery Physician Enterprise Sales Person Team may be reached at . Weight: [...] Bobby Loja. You may use a [place] Track or treadmill but avoid any pulling [...] friends, go to a movie, go to [employer], etc. Heavy activities: No hunting, skiing, jogging, [...] should resume a low fat, low cholesterol, [place] Heart Association Diet/Diabetic diet. Driving: No driving [...] while being managed by your PCP and/or Director Of Regional Sales. For future medication refills, please refer to your PCP and/or Director Of Regional Sales after your discharge from our service. Thank you REMOVE CHEST TUBE SUTURES ON OR AFTER 06/24/2024 Home oxygen therapy: N/A Follow up appointments: You should follow up with your PCP, Mauro Berumen MD, in 1-2 weeks. You should follow up with your Director Of Regional Sales, Dr CARDENAS. You have an appointment with your Cardiac Surgeon, Dr. Bobby Loja, in 4 wks. Cardiac Rehabilitation: George Mehta was seen today regarding participation in the outpatient Phase 2 Cardiac Rehabilitation at [facility]. The patient agrees to a referral to this program. The referral will be sent at discharge and the patient should be contacted by the program within 1-2 weeks from discharge. Future Appointments and Orders Future Orders Complete By Expires Referral to Cardiac Rehab [[id number] Custom] As directed Process Instructions: If no progress note charted, please enter Clinical details in comments. Scheduling Instructions: Questions: My question or request is: s/p CABG- cardiac rehab at [facility] Referral to Home Health [[id number] Custom] As directed Process Instructions: If no progress note charted, please enter Clinical details in comments. Scheduling Instructions: Comments: Please evaluate George Mehta for admission to Home Health. [address] [facility] [address] (home) Date of : 1955 Inpatient DOCUMENTATION FOR VNA SERVICES (INCLUDING THOSE PATIENTS WITH MEDICARE COVERAGE REQUIRINGHOME VNA SERVICES AND/OR HOSPICE SERVICES) PATIENT'S LOCATION: George Mehta [address] [facility] [address] (home) Telephone Information: Civil Rights Investigator's Name: self In discussion with the attending physician, it is certified that this patient is under their care and that they, or a Nurse Practitioner, or Physician Enterprise Sales Person who is working directly with them, hada [...] for services as follows: HOME HEALTH AGENCY: [facility] [address] [place] [id number] RN orders: Cardiopulmonary assessment, incisional assessment, assess [...] issues please call the Cardiology Office at [phone] FOR MEDICARE ONLY: (please delete this section [...] As above. Signed: KEILA HANLEY APRN [facility] Section of Cardiac Surgery [facility] [address] FAX [phone] Date: 06/21/2024 CC: MD Antonino Tinajero Joshua R, PA [address] [place] [address] [place] [address] documented in this encounter Discharge Instructions * [...] 2 tablespoons of dried fruit. Milk and va-cqewy-pyjhv yogurt have 15 grams of carbs in a serving. A serving is 1 cup of milk or 3/4 cup (6 oz) of gg-hbyxa-tnpqf yogurt. Starchy vegetables have 15 grams of [...] Bobby Loja and/or the Cardiac Surgery Physician Enterprise Sales Person Team may be reached at . Weight: [...] Bobby Loja. You may use a [place] Track or treadmill but avoid any pulling [...] friends, go to a movie, go to [employer], etc. Heavy activities: No hunting, skiing, jogging, [...] should resume a low fat, low cholesterol, [place] Heart Association Diet/Diabetic diet. Driving: No driving [...] while being managed by your PCP and/or Director Of Regional Sales. For future medication refills, please refer to your PCP and/or Director Of Regional Sales after your discharge from our service. Thank you REMOVE CHEST TUBE SUTURES ON OR AFTER 06/24/2024 Home oxygen therapy: N/A Follow up appointments: You should follow up with your PCP, Mauro Berumen MD, in 1-2 weeks. You should follow up with your Director Of Regional Sales, Dr CARDENAS. You have an appointment with your Cardiac Surgeon, Dr. Bobby Loja, in 4 wks. Cardiac Rehabilitation: George Mehta was seen today regarding participation in the outpatient Phase 2 Cardiac Rehabilitation at [facility]. The patient agrees to a referral [...] RN - 06/21/2024 8:[address] [facility] Purposeful Rounding, an assessment of your patient's venous access was performed [facility] theVascular Access Service. The following tasks [...] RN - 06/21/2024 8:[address] [facility] Purposeful Rounding, an assessment of your [...] MARIALUISA clipping. PMH of chronic HFrEF s/p MAINFRAME APPLICATIONS DEVELOPER/ICD, IDDM2, HTN, HLD, remote melanoma, active smoker. [...] 2 tablespoons of dried fruit. Milk and vf-bmyiv-blrsw yogurt have 15 grams of carbs in a serving. A serving is 1 cup of milk or 3/4 cup (6 oz) of qx-huisc-nhplo yogurt. Starchy vegetables have 15 grams of [...] [facility] Endocrinology Diabetes Management Pager [phone] Weekends please page [phone] * Eric Packer PA - 06/20/2024 7:44 AM EST Cardiac Surgery Progress Note George Mehta is a 69 y.o. male with a history of CAD s/p multiple PCI who presented with an anterior STEMI and was given lytics. Cath showed MV CAD without culprit vessel. He is now 6 Days Post-OpCABGx3 and MARIALUISA clipping. PMH of chronic HFrEF s/p MAINFRAME APPLICATIONS DEVELOPER/ICD, IDDM2, HTN, HLD, remote melanoma, active smoker. [...] 89 Pt is followed by heart failure drywall taper at [facility] #IDDM2 DM team following Lantus, SSI Carb controlled diet #Active smoker Duoneb prn Dispo: Floor, full code, home when ready Discussed with attending surgeon on rounds this morning. 06/20/2024 Between the hours of 1800 - 0600 and on the weekends please page [phone]. * Alejandra Baumann APRN - 06/20/2024 7:21 AM EST Follow Up Diabetes Consult Patient Interview Blood glucose values and insulin use reviewed. financial administrative assistant BG to 59 despite decrease in glargine [...] MARIALUISA clipping. PMH of chronic HFrEF s/p MAINFRAME APPLICATIONS DEVELOPER/ICD, IDDM2, HTN, HLD, remote melanoma, active smoker. financial administrative assistant BG to 59 despite decrease in glargine [...] [facility] Endocrinology Diabetes Management Pager [phone] Weekends please page [phone] Insulin Discharge Instructions Preliminary Diabetes Discharge Instructions [...] juice or regular (not diet) soda 6 [employer] small box of raisins 4 glucose tablets [...] 2 tablespoons of dried fruit. Milk and zo-pbgrk-ipcib yogurt have 15 grams of carbs in a serving. A serving is 1 cup of milk or 3/4 cup (6 oz) of sf-qzxke-tejit yogurt. Starchy vegetables have 15 grams of [...] MARIALUISA clipping. PMH of chronic HFrEF s/p MAINFRAME APPLICATIONS DEVELOPER/ICD, IDDM2, HTN, HLD, remote melanoma, active smoker. [...] 89 Pt is followed by heart failure drywall taper at [facility] Tx to floor #IDDM2 DM team following pre-op Lantus, SSI Carb controlled diet #Active smoker Duoneb prn Dispo: Floor status, full code Discussed with attending surgeon on rounds this morning. Jeffy Hood MD 06/19/2024 Between the hours of 1800 - 0600 and on the weekends please page [phone]. * Alejandra Baumann, SENIOR WINDOWS ENGINEER - 06/19/2024 7:09 AM EST Follow Up Diabetes Consult Patient Interview Blood glucose values and insulin use reviewed. Jardiance added back yesterday, computer installation engineer low BGto 51. Glargine reduced to 45 [...] MARIALUISA clipping. PMH of chronic HFrEF s/p MAINFRAME APPLICATIONS DEVELOPER/ICD, IDDM2, HTN, HLD, remote melanoma, active smoker. Jardiance added back yesterday. financial administrative assistant low BG to 51. Glargine reduced to [...] 2 tablespoons of dried fruit. Milk and xi-xzxsp-lnhpy yogurt have 15 grams of carbs in a serving. A serving is 1 cup of milk or 3/4 cup (6 oz) of jt-wtbkk-joeyt yogurt. Starchy vegetables have 15 grams of [...] [facility] Endocrinology Diabetes Management Pager [phone] Weekends please page [phone] * Hilda Resendez PTA - 06/18/2024 9:19 AM EST Physical Therapy Note 2 Patient profile: George Mehta is a 69 y.o. male with a history of CAD s/p multiple PCI who presented with an anterior STEMI and was given lytics. Cath showed MV CAD without culprit vessel. He is now 1 Day Post-Op CABGx3 and MARIALUISA clipping. PMH of chronic HFrEF s/p MAINFRAME APPLICATIONS DEVELOPER/ICD, IDDM2, HTN, HLD, remote melanoma, active smoker. Interval History: Per last cardiac surgery note on 06/18/2024 Cr improved 1.4 on lasix 40 iv bid -1.5L, made 2.5L urine Coreg, entresto restarted Floor status Social History: Pt lives with his in a 1 level apartment with no steps to enter. 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 He drives. He sleeps in a recliner at baseline. Precautions/Special Considerations: Sternal precautions, PIV, at risk to fall, PPM Mobility and Positioning Recommendations: Pt to utilize no AD, supervision for ambulation and transfers w/ staff air defense officer as able. Please encourage up to [...] least restrictive device Time IN / OUT: 8008-4366 Total Time: 11 minutes; TEF 1 Hilda Resendez PTA Pager: [phone] Physical Therapy Inpatient Rehabilitation Department * Keila [...] MARIALUISA clipping. PMH of chronic HFrEF s/p MAINFRAME APPLICATIONS DEVELOPER/ICD, IDDM2, HTN, HLD, remote melanoma, active smoker. [...] 90 Pt is followed by heart failure drywall taper at [facility], will get name for f/up appt Tx to floor #IDDM2 DM team following pre-op Lantus, SSI Carb controlled diet ? Restarting jardiance #Active smoker Duoneb prn Dispo: CVCC, Full code, tx to floor Discussed with attending surgeon on rounds this morning. KEILA HANLEY, JOSÉ ANTONIO 06/18/2024 Between the hours of 1800 - 0600 and on the weekends please page [phone]. * Alejandra Baumann APRN - 06/17/2024 3:29 [...] MARIALUISA clipping. PMH of chronic HFrEF s/p MAINFRAME APPLICATIONS DEVELOPER/ICD, IDDM2, HTN, HLD, remote melanoma, active smoker. [...] [facility] Endocrinology Diabetes Management Pager [phone] Weekends please page [phone] 35 minutes were spent over the course [...] MARIALUISA clipping. PMH of chronic HFrEF s/p MAINFRAME APPLICATIONS DEVELOPER/ICD, IDDM2, HTN, HLD, remote melanoma, active smoker. [...] 0600 and on the weekends please page [phone]. * Raymond Carlton MD - 06/16/2024 1:11 PM EST CARDIAC CRITICAL CARE ATTENDING STAFF PROGRESS NOTE Patient seen and examined. George Mehta is a 69 y.o. male with: Active Hospital Problems Diagnosis STEMI (ST elevation myocardial infarction) Cardiac resynchronization therapy defibrillator (MAINFRAME APPLICATIONS DEVELOPER-D) - Medtronic Amplia Cardiomyopathy, ischemic Acute on chronic heart failure with reduced ejection fraction (HFrEF, <= 40%) Coronary artery disease involving northern [place] coronary artery of [place] heart without angina pectoris Type 2 diabetes [...] encouragement provided Patient screened for f/u and freelance writer met pt at bedside. Pt states [...] unless consulted in the interim. RICHA Simmons Estimator Printing * Octaviano Horvath PA - 06/16/2024 8:07 AM EST Cardiac Surgery Progress Note George Mehta is a 69 y.o. male with a history of CAD s/p multiple PCI who presented with an anterior STEMI and was given lytics. Cath showed MV CAD without culprit vessel. He is now 2 Days Post-OpCABGx3 and MARIALUISA clipping. PMH of chronic HFrEF s/p MAINFRAME APPLICATIONS DEVELOPER/ICD, IDDM2, HTN, HLD, remote melanoma, active smoker. [...] 0600 and on the weekends please page [phone]. * Jono Fernandez, PT - 06/15/2024 4:09 PM EST Physical Therapy Evaluation Patient profile: George Mehta is a 69 y.o. male with a history of CAD s/p multiple PCI who presented with an anterior STEMI and was given lytics. Cath showed MV CAD without culprit vessel. He is now 1 Day Post-Op CABGx3 and MARIALUISA clipping. PMH of chronic HFrEF s/p MAINFRAME APPLICATIONS DEVELOPER/ICD, IDDM2, HTN, HLD, remote melanoma, active smoker. 24h Events: From OR on Dobutamine IABP removed Bedrest ended ~2100, sedation weaned Extubated ~0200 Dobutamine weaned to 1 this morning, CI 2.6, shut off and repeat CI 2.4 Social History: Pt lives with his in a 1 level apartment with no steps to enter. 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 He drives. He sleeps [...] outlined inthis evaluation. JONO FERNANDEZ, PT Pager: [phone] Physical Therapy Inpatient Rehabilitation Department Time IN / OUT: 2153-6138 Total Time: 33 (eval) minutes * Alejandra Baumann APRN - 06/15/2024 11:39 AM EST Follow Up Diabetes Consult Patient Interview Blood glucose values and insulin use reviewed. Pt remains on an insulin drip today following [id number] MARIALUISA clipping. George continues to complain of [...] MARIALUISA clipping. PMH of chronic HFrEF s/p MAINFRAME APPLICATIONS DEVELOPER/ICD, IDDM2, HTN, HLD, remote melanoma, active smoker. [...] [facility] Endocrinology Diabetes Management Pager [phone] Weekends please page [phone] 50 minutes were spent over the course [...] elevation myocardial infarction) Cardiac resynchronization therapy defibrillator (MAINFRAME APPLICATIONS DEVELOPER-D) - Medtronic Amplia Cardiomyopathy, ischemic Acute on chronic heart failure with reduced ejection fraction (HFrEF, <= 40%) Coronary artery disease involving [place] coronary artery of [place] heart without angina pectoris Type 2 diabetes [...] with h/o DM, CAD with prior PCI, MAINFRAME APPLICATIONS DEVELOPER-D who presented with crushing chest pain, found [...] MARIALUISA clipping. PMH of chronic HFrEF s/p MAINFRAME APPLICATIONS DEVELOPER/ICD, IDDM2, HTN, HLD, remote melanoma, active smoker. [...] sternotomy dressing CDI, saphenectomy dressing CDi Tubes/Lines/Drains: Ruby, RIJ, A-line, Mediastinal marcos and bilateral pleural [...] 0600 and on the weekends please page [phone]. * Yoli Donaldson FINANCIAL SALES CONSULTANT - 06/15/2024 5:35 AM EST AMV Protocol: [...] with h/o DM, CAD with prior PCI, MAINFRAME APPLICATIONS DEVELOPER-D who presented with crushing chest pain, found [...] 1.5 PTT 31 T/L/D Barr ETT CVL [place] Pacing wires ASSESSMENT, MANAGEMENT, and DECISION MAKIN y.o. male with h/o DM, CAD with prior PCI, MAINFRAME APPLICATIONS DEVELOPER-D who presented with crushing chest pain, found [...] 0600 and on the weekends please page [phone]. * Chloé Cortez - 06/14/2024 9:36 AM [...] unless consulted in the interim. Chloé Cortez Trackless Trolley Driver * Jim Benites MD - 06/13/2024 [...] - Mildly dilated left ventricle size with fuyveeph-vv-zzjmjmdw decreased LV systolic function. LV ejection fraction [...] ACS/crushing chest pain, likely due to lateral SD, found to have surgical CAD with viability [...] (abstinent since admission), ASCVD with multiple prior SD and PCIs, ICM/HFrEF LVEF 30% (all territories [...] elevation myocardial infarction) Cardiac resynchronization therapy defibrillator (MAINFRAME APPLICATIONS DEVELOPER-D) - Medtronic Amplia Cardiomyopathy, ischemic Acute on chronic heart failure with reduced ejection fraction (HFrEF, <= 40%) Coronary artery disease involving [place] coronary artery of northern [place] heart without angina pectoris Type 2 diabetes [...] PCP: Mauro Berumen MD PCP phone number: [phone] Date of Admission: 06/02/2024 ( Hospital Day 10 days ) Attending:Ethel Carrillo MD ID: 69 y.o. male with a h/o DM type 2, HTN, HLD, current smoker (2-3 cigarettes/day), HFrEF with anICD for low EF (~30%), and CAD with prior SD x3 with JENNA placed in [place], Melanoma, PAD, presented to [facility] with 1 hour of retrosternal CP (05/13) while watching TV, found to have STEMI. Active Problems: Active Hospital Problems Diagnosis STEMI (ST elevation myocardial infarction) Cardiac resynchronization therapy defibrillator (MAINFRAME APPLICATIONS DEVELOPER-D) - Medtronic Amplia Cardiomyopathy, ischemic Acute on chronic heart failure with reduced ejection fraction (HFrEF, <= 40%) Coronary artery disease involving northern [place] coronary artery of northern [place] heart without angina pectoris Type 2 diabetes [...] in the last 7068 hours. Invalid input(s): [id number] Recent Labs 06/12/24 0425 06/11/24 2356 06/11/24 2025 06/11/24 1624 06/11/24 1108 06/11/24 0748 06/11/24 0357 06/11/24 0050 06/10/24 1922 06/10/24 1735 06/10/24 1125 06/10/24 0746 POCGLU 132 135 210* 81 233* 184 132 144 236* 123 216* 206* Heme No results for input(s): LDH, HAPTOGLOBIN, URICACID in the last 168 hours. ABG (Arterial Blood Gas) No results found for: PHART, PO2ART, IJL5QIA, KTG4RDA Microbiology: Microbiology Results (Last 30 days) No results found for the last 720 hours. Imaging: Results for orders placed or performed during the hospital encounter of 06/02/24 XR Chest One View (Exam End: 06/03/2024 2:41 AM) Result Value WORKSTATION ID [id number] Impression No radiographically evident acute cardiopulmonary process. Thank you for letting us participate in the care of this patient. If you are a health care provider and have any questions regarding this report, please contact the number below. For patients who have questions please contact the health director of health care marketing that requested your imaging first. Electronically signed by: Corazon Mauro MD, [facility] ([phone]), at 06/03/2024 3:06 AM MRI Cardiac Morphology Function wwo Contrast (Exam End: 06/07/2024 1:10 PM) Result Value WORKSTATION ID [id number] Impression - Findings consistent with an ischemic [...] - Mildly dilated left ventricle size with utopcotw-ta-zhndnxeq decreased LV systolic function. LV ejection fraction [...] who have questions please contact the health director of health care marketing that requested your imaging first. Electronically signed by: Kriss Alonzo MD, [facility] ([phone]), at 06/07/2024 2:[address] Chest wo Contrast (Generic) (Exam End: 06/03/2024 4:33 PM) Result Value WORKSTATION ID [id number] Impression Cardiomegaly. Biventricular ICD leads in place. Thank you for letting us participate in the care of this patient. If you are a health care provider and have any questions regarding this report, please contact the number below. For patients who have questions please contact the health director of health care marketing that requested your imaging first. Electronically signed by: Stuart Aponte MD, [facility] ([phone]), at 06/03/2024 4:47 PM XR Chest PA & Lateral (Generic) (Exam End: 06/07/2024 7:03 AM) Result Value WORKSTATION ID [id number] Impression Biventricular ICD leads intact and in [...] who have questions please contact the health director of health care marketing that requested your imaging first. Electronically signed by: Stuart Aponte MD, [facility] ([phone]), at 06/07/2024 10:45 AM TTE: Limited echo performed by fellow aviation safety technician to assess LV function. Left ventricle [...] Infusions: heparin (porcine) infusion 1,400 Units/hr (06/12/24 2854) PRN Meds:.insulin lispro, glucose 40% oral geL [...] ischemic cardiomyopathy with HFrEF (~30% EF), prior SD with stents, DM type 2, HTN, HLD, active smoker, presented with anterior STEMI. Angiography revealed severe multivessel CAD with extensive calcification and YUE 3 flow in all vessels, without a clear culprit lesion. Currently pain-free after TNK, Plavix, ASA, and heparin, with mildly elevated LVEDP at 40 mmHg and mild volume overload. 06/12/24: Patient stable, asymptomatic. Plan to go to supervisor cytogenetic laboratory for balloon pump tomorrow, then willgo to [...] CODE Dain Colón MD Cardiology, M1-S2, Pager #[phone] 06/12/24 Associated attestation - Ethel Carrillo MD [...] (abstinent since admission), ASCVD with multiple prior SD and PCIs, ICM/HFrEF LVEF 30% (all territories [...] of two midnights or is on the [facility] inpatient only procedure list (status C) due to: acute myocardial infarction requiring titration of IV medication and fluid monitoring and decompensated congestive heart failure requiring IV medication and fluid monitoring Ethel Carrillo MD Cardiovascular Medicine Personal Pager [phone] 06/12/2024 9:12 PM * Alejandra Baumann, SENIOR WINDOWS ENGINEER - 06/11/2024 4:21 PM EST Images from [...] too aggressive, suggest ICR 1:6 (rule of [id number] = 6.25). George is up and walking [...] ischemic cardiomyopathy with HFrEF (~30% EF), prior SD with stents, DM type 2, HTN, HLD, [...] [facility] Endocrinology Diabetes Management Pager [phone] Weekends please page [phone] 35 minutes were spent over the course [...] PCP: Mauro Berumen MD PCP phone number: [phone] Date of Admission: 06/02/2024 ( Hospital Day 9 days ) Attending:Melida Valdes MD ID: 69 y.o. male with a h/o DM type 2, HTN, HLD, current smoker (2-3 cigarettes/day), HFrEF with anICD for low EF (~30%), and CAD with prior SD x3 with JENNA placed in [facility], presented to [facility] with 1 hour of retrosternal CP (05/13) while watching TV, found to have STEMI. Active Problems: Active Hospital Problems Diagnosis STEMI (ST elevation myocardial infarction) Cardiac resynchronization therapy defibrillator (MAINFRAME APPLICATIONS DEVELOPER-D) - Medtronic Amplia Cardiomyopathy, ischemic Acute on chronic heart failure with reduced ejection fraction (HFrEF, <= 40%) Coronary artery disease involving northern [place] coronary artery of northern [place] heart without angina pectoris Type 2 diabetes [...] in the last 7068 hours. Invalid input(s): [id number] Recent Labs 06/11/24 0357 06/11/24 0050 06/10/24 1922 06/10/24 1735 06/10/24 1125 06/10/24 0746 06/10/24 0423 06/10/24 0005 06/09/24 2036 06/09/24 1727 06/09/24 1152 06/09/24 0810 POCGLU 132 144 236* 123 216* 206* 154 125 197 174 211* 209* Heme No results for input(s): LDH, HAPTOGLOBIN, URICACID in the last 168 hours. ABG (Arterial Blood Gas) No results found for: PHART, PO2ART, IXP9MXU, ZGI3FGZ Microbiology: Microbiology Results (Last 30 days) No results found for the last 720 hours. Imaging: Results for orders placed or performed during the hospital encounter of 06/02/24 XR Chest One View (Exam End: 06/03/2024 2:41 AM) Result Value WORKSTATION ID [id number] Impression No radiographically evident acute cardiopulmonary process. Thank you for letting us participate in the care of this patient. If you are a health care provider and have any questions regarding this report, please contact the number below. For patients who have questions please contact the health director of health care marketing that requested your imaging first. Electronically signed by: Corazon Mauro MD, [facility] ([phone]), at 06/03/2024 3:06 AM MRI Cardiac Morphology Function wwo Contrast (Exam End: 06/07/2024 1:10 PM) Result Value WORKSTATION ID [id number] Impression - Findings consistent with an ischemic [...] - Mildly dilated left ventricle size with auelxckk-nx-tgvnupuz decreased LV systolic function. LV ejection fraction [...] who have questions please contact the health director of health care marketing that requested your imaging first. Electronically signed by: Kriss Alonzo MD, [facility] ([phone]), at 06/07/2024 2:[address] Chest wo Contrast (Generic) (Exam End: 06/03/2024 4:33 PM) Result Value WORKSTATION ID [id number] Impression Cardiomegaly. Biventricular ICD leads in place. Thank you for letting us participate in the care of this patient. If you are a health care provider and have any questions regarding this report, please contact the number below. For patients who have questions please contact the health director of health care marketing that requested your imaging first. Electronically signed by: Stuart Aponte MD, [facility] ([phone]), at 06/03/2024 4:47 PM XR Chest PA & Lateral (Generic) (Exam End: 06/07/2024 7:03 AM) Result Value WORKSTATION ID [id number] Impression Biventricular ICD leads intact and in [...] who have questions please contact the health director of health care marketing that requested your imaging first. Electronically signed by: Stuart Aponte MD, [facility] ([phone]), at 06/07/2024 10:45 AM TTE: Limited echo performed by fellow aviation safety technician to assess LV function. Left ventricle [...] Infusions: heparin (porcine) infusion 1,400 Units/hr (06/10/24 4416) PRN Meds:.insulin lispro, glucose 40% oral geL [...] ischemic cardiomyopathy with HFrEF (~30% EF), prior SD with stents, DM type 2, HTN, HLD, [...] CODE Dain Colón MD Cardiology, M1-S2, Pager #[phone] 06/11/24 Associated attestation - Ethel Carrillo MD [...] (abstinent since admission), ASCVD with multiple prior SD and PCIs, ICM/HFrEF LVEF 30% (all territories [...] of two midnights or is on the [facility] inpatient only procedure list (status C) due to: acute myocardial infarction requiring titration of IV medication and fluid monitoring and decompensated congestive heart failure requiring IV medication and fluid monitoring Ethel Carrillo MD Cardiovascular Medicine Personal Pager [phone] 06/11/2024 9:35 PM * BarbraHilary - 06/10/2024 12:39 PM EST Nutrition Services Note George Mehta is a 69 y.o. male Reason for intervention: hospital day 9 Nutrition Plan: Continue diet order: 60/60/75 CHO Level 2 Encourage good PO Lasix and Insulin noted Monitor weight Patient scheduled for a hospital day 9 nutrition evaluation. Varsity Baseball Coach attempted to meet with pt at bedside [...] unless consulted in the interim. Hilary [employer] * Mariia Montero RN - 06/10/2024 12:23 PM EST I have met with the patient to: discuss discharge planning needs. provide the [facility], Office of Care Management letter from the [employer] Developer pertaining to rehab referrals. provide a letter describing our affiliations within the [facility] and educate about their right to choose where referrals are sent. provide a list of Home Health Agencies / Durable Medical Equipment vendors which serve their preferred geographic area. provided patient with [facility] Star Quality Rating handout. They have requested referrals to: [facility] [address] [place] [id number] RN / PT Anticipated d/c date: 06/20/24 Note routed to a Clinical Medical Transcriptionist who will communicate referrals to facilities and provide any required information. * Dain Colón MD - 06/10/2024 7:17 AM EST Images from the original note were not included. . Cardiology Progress Note Patient info: Name: George Mehta : 1955 PCP: Mauro Berumen MD PCP phone number: [phone] Date of Admission: 06/02/2024 ( Hospital Day 8 days ) Attending:Melida Valdes MD ID: 69 y.o. male with a h/o DM type 2, HTN, HLD, current smoker (2-3 cigarettes/day), HFrEF with anICD for low EF (~30%), and CAD with prior SD x3 with JENNA placed in [place], Melanoma, PAD, presented to [facility] with 1 hour of retrosternal CP (05/13) while watching TV, found to have STEMI. Active Problems: Active Hospital Problems Diagnosis STEMI (ST elevation myocardial infarction) Cardiac resynchronization therapy defibrillator (MAINFRAME APPLICATIONS DEVELOPER-D) - Medtronic Amplia Cardiomyopathy, ischemic Acute on chronic heart failure with reduced ejection fraction (HFrEF, <= 40%) Coronary artery disease involving northern [place] coronary artery of northern [place] heart without angina pectoris Type 2 diabetes [...] in the last 7068 hours. Invalid input(s): [id number] Recent Labs 06/10/24 0423 06/10/24 0005 06/09/24 2036 06/09/24 1727 06/09/24 1152 06/09/24 0810 06/09/24 0440 06/09/24 0034 06/08/24 2027 06/08/24 1616 06/08/24 1235 06/08/24 0810 POCGLU 154 125 197 174 211* 209* 131 186 176 159 226* 190 Heme No results for input(s): LDH, HAPTOGLOBIN, URICACID in the last 168 hours. ABG (Arterial Blood Gas) No results found for: PHART, PO2ART, TAO9HBU, IPG9DBC Microbiology: Microbiology Results (Last 30 days) No results found for the last 720 hours. Imaging: Results for orders placed or performed during the hospital encounter of 06/02/24 XR Chest One View (Exam End: 06/03/2024 2:41 AM) Result Value WORKSTATION ID [id number] Impression No radiographically evident acute cardiopulmonary process. Thank you for letting us participate in the care of this patient. If you are a health care provider and have any questions regarding this report, please contact the number below. For patients who have questions please contact the health director of health care marketing that requested your imaging first. Electronically signed by: Corazon Mauro MD, [facility] ([phone]), at 06/03/2024 3:06 AM MRI Cardiac Morphology Function wwo Contrast (Exam End: 06/07/2024 1:10 PM) Result Value WORKSTATION ID [id number] Impression - Findings consistent with an ischemic [...] - Mildly dilated left ventricle size with bwrbzopi-rf-whzzmpki decreased LV systolic function. LV ejection fraction [...] who have questions please contact the health director of health care marketing that requested your imaging first. Electronically signed by: Kriss Alonzo MD, [facility] ([phone]), at 06/07/2024 2:[address] Chest wo Contrast (Generic) (Exam End: 06/03/2024 4:33 PM) Result Value WORKSTATION ID [id number] Impression Cardiomegaly. Biventricular ICD leads in place. Thank you for letting us participate in the care of this patient. If you are a health care provider and have any questions regarding this report, please contact the number below. For patients who have questions please contact the health director of health care marketing that requested your imaging first. Electronically signed by: Stuart Aponte MD, [facility] ([phone]), at 06/03/2024 4:47 PM XR Chest PA & Lateral (Generic) (Exam End: 06/07/2024 7:03 AM) Result Value WORKSTATION ID [id number] Impression Biventricular ICD leads intact and in [...] who have questions please contact the health director of health care marketing that requested your imaging first. Electronically signed by: Stuart Aponte MD, [facility] ([phone]), at 06/07/2024 10:45 AM TTE: Limited echo performed by fellow aviation safety technician to assess LV function. Left ventricle [...] ischemic cardiomyopathy with HFrEF (~30% EF), prior SD with stents, DM type 2, HTN, HLD, [...] CODE Dain Colón MD Cardiology, M1-S2, Pager #[phone] 06/10/24 Associated attestation - Melida Valdes MD [...] a lytic and brought directly to the Medical Bill Processor. Cardiac catheterization demonstrated multivessel disease with severe [...] who is agreeable Melida Valdes MD Staff Director Of Regional Sales * Cherelle Fregoso APRN - 06/09/2024 8:59 [...] ischemic cardiomyopathy with HFrEF (~30% EF), prior SD with stents, DM type 2, HTN, HLD, [...] PCP: Mauro Berumen MD PCP phone number: [phone] Date of Admission: 06/02/2024 ( Hospital Day 7 days ) Attending:Melida Valdes MD ID: 69 y.o. male with a h/o DM type 2, HTN, HLD, current smoker (2-3 cigarettes/day), HFrEF with anICD for low EF (~30%), and CAD with prior SD x3 with JENNA placed in [place], Melanoma, PAD, presented to [facility] with 1 hour of retrosternal CP (05/13) while watching TV, found to have STEMI. Active Problems: Active Hospital Problems Diagnosis STEMI (ST elevation myocardial infarction) Acute on chronic heart failure with reduced ejection fraction (HFrEF, <= 40%) Coronary artery disease involving northern [place] coronary artery of northern [place] heart without angina pectoris Type 2 diabetes [...] in the last 7068 hours. Invalid input(s): [id number] Recent Labs 06/09/24 0440 06/09/24 0034 06/08/24 2027 06/08/24 1616 06/08/24 1235 06/08/24 0810 06/08/24 0409 06/07/24 2357 06/07/24 2005 06/07/24 1631 06/07/24 1105 06/07/24 1103 POCGLU 131 186 176 159 226* 190 151 188 118 174 221* 250* Heme No results for input(s): LDH, HAPTOGLOBIN, URICACID in the last 168 hours. ABG (Arterial Blood Gas) No results found for: PHART, PO2ART, OPK9YID, DZL0QSU Microbiology: Microbiology Results (Last 30 days) No results found for the last 720 hours. Imaging: Results for orders placed or performed during the hospital encounter of 06/02/24 XR Chest One View (Exam End: 06/03/2024 2:41 AM) Result Value WORKSTATION ID [id number] Impression No radiographically evident acute cardiopulmonary process. Thank you for letting us participate in the care of this patient. If you are a health care provider and have any questions regarding this report, please contact the number below. For patients who have questions please contact the health director of health care marketing that requested your imaging first. Electronically signed by: Corazon Mauro MD, [facility] ([phone]), at 06/03/2024 3:06 AM MRI Cardiac Morphology Function wwo Contrast (Exam End: 06/07/2024 1:10 PM) Result Value WORKSTATION ID [id number] Impression - Findings consistent with an ischemic [...] - Mildly dilated left ventricle size with bmkjptfx-hk-wbhohqty decreased LV systolic function. LV ejection fraction [...] who have questions please contact the health director of health care marketing that requested your imaging first. Electronically signed by: Kriss Alonzo MD, [facility] ([phone]), at 06/07/2024 2:[address] Chest wo Contrast (Generic) (Exam End: 06/03/2024 4:33 PM) Result Value WORKSTATION ID [id number] Impression Cardiomegaly. Biventricular ICD leads in place. Thank you for letting us participate in the care of this patient. If you are a health care provider and have any questions regarding this report, please contact the number below. For patients who have questions please contact the health director of health care marketing that requested your imaging first. Electronically signed by: Stuart Aponte MD, [facility] ([phone]), at 06/03/2024 4:47 PM XR Chest PA & Lateral (Generic) (Exam End: 06/07/2024 7:03 AM) Result Value WORKSTATION ID [id number] Impression Biventricular ICD leads intact and in [...] who have questions please contact the health director of health care marketing that requested your imaging first. Electronically signed by: Stuart Aponte MD, [facility] ([phone]), at 06/07/2024 10:45 AM TTE: Limited echo performed by fellow aviation safety technician to assess LV function. Left ventricle [...] Infusions: heparin (porcine) infusion 1,400 Units/hr (06/08/24 7884) PRN Meds:.glucose 40% oral geL OR dextrose [...] ischemic cardiomyopathy with HFrEF (~30% EF), prior SD with stents, DM type 2, HTN, HLD, [...] CODE Dain Colón MD Cardiology, M1-S2, Pager #[phone] 06/09/24 Associated attestation - Melida Valdes MD [...] a lytic and brought directly to the Medical Bill Processor. Cardiac catheterization demonstrated multivessel disease with severe [...] insertion low EF. Melida Valdes MD Staff Director Of Regional Sales * Alejandra Baumann, SENIOR WINDOWS ENGINEER - 06/08/2024 4:10 PM EST Images from [...] ischemic cardiomyopathy with HFrEF (~30% EF), prior SD with stents, DM type 2, HTN, HLD, [...] [facility] Endocrinology Diabetes Management Pager [phone] Weekends please page [phone] 35 minutes were spent over the course [...] PCP: Mauro Berumen MD PCP phone number: [phone] Date of Admission: 06/02/2024 ( Hospital Day 6 days ) Attending:Melida Valdes MD ID: 69 y.o. male with a h/o DM type 2, HTN, HLD, current smoker (2-3 cigarettes/day), HFrEF with anICD for low EF (~30%), and CAD with prior SD x3 with JENNA placed in [place], Melanoma, PAD, presented to [facility] with 1 hour of retrosternal CP (05/13) while watching TV, found to have STEMI. Active Problems: Active Hospital Problems Diagnosis STEMI (ST elevation myocardial infarction) Acute on chronic heart failure with reduced ejection fraction (HFrEF, <= 40%) Coronary artery disease involving northern [place] coronary artery of northern [place] heart without angina pectoris Type 2 diabetes [...] in the last 7068 hours. Invalid input(s): [id number] Recent Labs 06/08/24 0409 06/07/24 2357 06/07/24200406/07/24 1631 06/07/24 1105 06/07/24 1103 06/07/24 0745 06/07/24 0425 06/07/24 0008 06/06/24 2018 06/06/24 1539 06/06/24 1339 POCGLU 151 188 118 174 221* 250* 175 127 182 143 147 317* Heme No results for input(s): LDH, HAPTOGLOBIN, URICACID in the last 168 hours. ABG (Arterial Blood Gas) No results found for: PHART, PO2ART, KPG6TYM, PSA8KZM Microbiology: Microbiology Results (Last 30 days) No results found for the last 720 hours. Imaging: Results for orders placed or performed during the hospital encounter of 06/02/24 XR Chest One View (Exam End: 06/03/2024 2:41 AM) Result Value WORKSTATION ID [id number] Impression No radiographically evident acute cardiopulmonary process. Thank you for letting us participate in the care of this patient. If you are a health care provider and have any questions regarding this report, please contact the number below. For patients who have questions please contact the health director of health care marketing that requested your imaging first. Electronically signed by: Corazon Mauro MD, [facility] ([phone]), at 06/03/2024 3:06 AM MRI Cardiac Morphology Function wwo Contrast (Exam End: 06/07/2024 1:10 PM) Result Value WORKSTATION ID [id number] Impression - Findings consistent with an ischemic [...] - Mildly dilated left ventricle size with ydlxmdhv-gc-vxameduz decreased LV systolic function. LV ejection fraction [...] who have questions please contact the health director of health care marketing that requested your imaging first. Electronically signed by: Kriss Alonzo MD, [facility] ([phone]), at 06/07/2024 2:[address] Chest wo Contrast (Generic) (Exam End: 06/03/2024 4:33 PM) Result Value WORKSTATION ID [id number] Impression Cardiomegaly. Biventricular ICD leads in place. Thank you for letting us participate in the care of this patient. If you are a health care provider and have any questions regarding this report, please contact the number below. For patients who have questions please contact the health director of health care marketing that requested your imaging first. Electronically signed by: Stuart Aponte MD, [facility] ([phone]), at 06/03/2024 4:47 PM XR Chest PA & Lateral (Generic) (Exam End: 06/07/2024 7:03 AM) Result Value WORKSTATION ID [id number] Impression Biventricular ICD leads intact and in [...] who have questions please contact the health director of health care marketing that requested your imaging first. Electronically signed by: Stuart Aponte MD, [facility] ([phone]), at 06/07/2024 10:45 AM TTE: Limited echo performed by fellow aviation safety technician to assess LV function. Left ventricle [...] Infusions: heparin (porcine) infusion 1,400 Units/hr (06/08/24 0411) PRN Meds:.insulin lispro, potassium chloride ER OR [...] ischemic cardiomyopathy with HFrEF (~30% EF), prior SD with stents, DM type 2, HTN, HLD, [...] CODE Dain Colón MD Cardiology, M1-S2, Pager #[phone] 06/08/24 Associated attestation - Melida Valdes MD [...] a lytic and brought directly to the Medical Bill Processor. Cardiac catheterization demonstrated multivessel disease with severe [...] Otherwise clinically stable Melida Valdes MD Staff Director Of Regional Sales * Ross Manuel PA - 06/07/2024 12:00 PM EST Cardiac Electrophysiology CIED Interrogation/Programming Note Asked by MRI staff to evaluate and program Medtronic MAINFRAME APPLICATIONS DEVELOPER-D to allow for MR imaging. Patient Active Problem List Diagnosis ','STEMI (ST elevation myocardial infarction) Acute on chronic heart failure with reduced ejection fraction (HFrEF, <= 40%) Coronary artery disease involving northern [place] coronary artery of northern [place] heart without angina pectoris Type 2 diabetes mellitus Device Data: [employer] MRI Quad MAINFRAME APPLICATIONS DEVELOPER-D HEQX1AQ #[id number] 06/16/2019 RA Medtronic 4076 CapSureFix Novus [id number] 06/16/2019 RV Medtronic 6935M [id number] 06/16/2019 LV Medtronic 4298 Attain Performa MRI [id number] 06/16/2019 DDD @ 50/130/130 Adaptive Bi-V and LV VF >188bpm ATP, 35j x6 FVT >188-222bpm burst 2, 35jx5 VT Battery longevity: 2.5yrs; charge time 4s P wave: 2.3mV R wave: >20.0mV Atrial impedance: 458 ohms RV impedance: 646 ohms LV impedance: 722 ohms Atrial threshold: 0.5V @ 0.4ms RV threshold: LV threshold: 1.75V @ 0.4ms AP 0.2% ASSOCIATE SOFTWARE APPLICATION ENGINEER 97.7% AT/AF 0% Impression and Plan: 1. Interrogated device to determine suitability for MRI 2. Programmed to MRI safe mode - VOO @ 70 3. Scan performed 4. Programming restored to baseline settings 5. Reinterrogated to verify appropriate function and settings 6. Device follow up as previously scheduled Provider: HENOK Meyer EP Consult attending physician: Libby Barton MD EP Consult positional pager #[phone](EPMD) EP Device interrogation positional pager # [phone] * Dain Colón MD - 06/07/2024 7:09 AM EST Images from the original note were not included. . Cardiology Progress Note Patient info: Name: George Mehta : 1955 PCP: Mauro Berumen MD PCP phone number: [phone] Date of Admission: 06/02/2024 ( Hospital Day 5 days ) Attending:Melida Valdes MD ID: 69 y.o. male with a h/o DM type 2, HTN, HLD, current smoker (2-3 cigarettes/day), HFrEF with anICD for low EF (~30%), and CAD with prior SD x3 with JENNA placed in [place], Melanoma, PAD, presented to [facility] with 1 hour of retrosternal CP (05/13) while watching TV, found to have STEMI. Active Problems: Active Hospital Problems Diagnosis STEMI (ST elevation myocardial infarction) Acute on chronic heart failure with reduced ejection fraction (HFrEF, <= 40%) Coronary artery disease involving northern [place] coronary artery of northern [place] heart without angina pectoris Type 2 diabetes [...] in the last 7068 hours. Invalid input(s): [id number] Recent Labs 06/07/24 0425 06/07/24 0008 06/06/24 2018 06/06/24 1539 06/06/24 1339 06/06/24 1134 06/06/24 0757 06/06/24 0653 06/05/24 2231 06/05/24 1622 06/05/24 1134 06/05/24 0727 POCGLU 127 182 143 147 317* 264* 195 187 238* 205* 211* 166 Heme No results for input(s): LDH, HAPTOGLOBIN, URICACID in the last 168 hours. ABG (Arterial Blood Gas) No results found for: PHART, PO2ART, XXQ3IPC, ALI7GQR Microbiology: Microbiology Results (Last 30 days) No results found for the last 720 hours. Imaging: Results for orders placed or performed during the hospital encounter of 06/02/24 XR Chest One View (Exam End: 06/03/2024 2:41 AM) Result Value WORKSTATION ID [id number] Impression No radiographically evident acute cardiopulmonary process. Thank you for letting us participate in the care of this patient. If you are a health care provider and have any questions regarding this report, please contact the number below. For patients who have questions please contact the health director of health care marketing that requested your imaging first. Electronically signed by: Corazon Mauro MD, [facility] ([phone]), at 06/03/2024 3:[address] Chest wo Contrast (Generic) (Exam End: 06/03/2024 4:33 PM) Result Value WORKSTATION ID [id number] Impression Cardiomegaly. Biventricular ICD leads in place. Thank you for letting us participate in the care of this patient. If you are a health care provider and have any questions regarding this report, please contact the number below. For patients who have questions please contact the health director of health care marketing that requested your imaging first. Electronically signed by: Stuart Aponte MD, [facility] ([phone]), at 06/03/2024 4:47 PM TTE: Limited echo performed by fellow aviation safety technician to assess LV function. Left ventricle [...] Infusions: heparin (porcine) infusion 1,400 Units/hr (06/06/24 6733) PRN Meds:.insulin lispro, potassium chloride ER OR [...] ischemic cardiomyopathy with HFrEF (~30% EF), prior SD with stents, DM type 2, HTN, HLD, [...] Dain Colón MD (PGY-1) Cardiology, M1-S2, Pager #[phone] 06/07/24 Associated attestation - Melida Valdes MD [...] a lytic and brought directly to the Medical Bill Processor. Cardiac catheterization demonstrated multivessel disease with severe [...] for further guidance. Melida Valdes MD Staff Director Of Regional Sales * Dain Colón MD - 06/06/2024 7:17 AM EST Images from the original note were not included. . Cardiology Progress Note Patient info: Name: George Mehta : 1955 PCP: Mauro Berumen MD PCP phone number: [phone] Date of Admission: 06/02/2024 ( Hospital Day 4 days ) Attending:Melida Valdes MD ID: 69 y.o. male with a h/o DM type 2, HTN, HLD, current smoker (2-3 cigarettes/day), HFrEF with anICD for low EF (~30%), and CAD with prior SD x3 with JENNA placed in [place], Melanoma, PAD, presented to [facility] with 1 hour of retrosternal CP (05/13) while watching TV, found to have STEMI. Active Problems: Active Hospital Problems Diagnosis STEMI (ST elevation myocardial infarction) Acute on chronic heart failure with reduced ejection fraction (HFrEF, <= 40%) Coronary artery disease involving [place] coronary artery of [place] heart without angina pectoris Type 2 diabetes [...] in the last 7068 hours. Invalid input(s): [id number] Recent Labs 06/06/24 0653 06/05/24 2231 06/05/24 1622 06/05/24 1134 06/05/24 0727 06/04/24 1943 06/04/24 1526 06/04/24 1109 06/04/24 0711 06/03/24 2005 06/03/24 1748 06/03/24 1114 POCGLU 187 238* 205* 211* 166 175 154 188 182 136 191 166 Heme No results for input(s): LDH, HAPTOGLOBIN, URICACID in the last 168 hours. ABG (Arterial Blood Gas) No results found for: PHART, PO2ART, TMQ5PLF, OIV4PGZ Microbiology: Microbiology Results (Last 30 days) No results found for the last 720 hours. Imaging: Results for orders placed or performed during the hospital encounter of 06/02/24 XR Chest One View (Exam End: 06/03/2024 2:41 AM) Result Value WORKSTATION ID [id number] Impression No radiographically evident acute cardiopulmonary process. Thank you for letting us participate in the care of this patient. If you are a health care provider and have any questions regarding this report, please contact the number below. For patients who have questions please contact the health director of health care marketing that requested your imaging first. Electronically signed by: Corazon Mauro MD, [facility] ([phone]), at 06/03/2024 3:[address] Chest wo Contrast (Generic) (Exam End: 06/03/2024 4:33 PM) Result Value WORKSTATION ID [id number] Impression Cardiomegaly. Biventricular ICD leads in place. Thank you for letting us participate in the care of this patient. If you are a health care provider and have any questions regarding this report, please contact the number below. For patients who have questions please contact the health director of health care marketing that requested your imaging first. Electronically signed by: Stuart Aponte MD, [facility] ([phone]), at 06/03/2024 4:47 PM TTE: Limited echo performed by fellow aviation safety technician to assess LV function. Left ventricle [...] ischemic cardiomyopathy with HFrEF (~30% EF), prior SD with stents, DM type 2, HTN, HLD, [...] Dain Colón MD (PGY-1) Cardiology, M1-S2, Pager #[phone] 06/06/24 Associated attestation - Melida Valdes MD [...] a lytic and brought directly to the Medical Bill Processor. Cardiac catheterization demonstrated multivessel disease with severe [...] management. Help appreciated Melida Valdes MD Staff Director Of Regional Sales * Frederick Dunn MD - 06/05/2024 8:13 AM EDT Images from the original note were not included. . Cardiology Progress Note Patient info: Name: George Mehta : 1955 PCP: Mauro Berumen MD PCP phone number: [phone] Date of Admission: 06/02/2024 ( Hospital Day 3 days ) Attending:Melida Valdes MD ID: 69 y.o. male with a h/o DM type 2, HTN, HLD, current smoker (2-3 cigarettes/day), HFrEF with anICD for low EF (~30%), and CAD with prior SD x3 with JENNA placed in [place], Melanoma, PAD, presented to [facility] with 1 hour of retrosternal CP [...] in the last 7068 hours. Invalid input(s): [id number] Recent Labs 06/05/24 1134 06/05/24 0727 06/04/24 1943 06/04/24 1526 06/04/24 1109 06/04/24 0711 06/03/24 2005 06/03/24 1748 06/03/24 1114 06/03/24 0754 06/02/24 2331 POCGLU 211* 166 175 154 188 182 136 191 166 195 156 Heme No results for input(s): LDH, HAPTOGLOBIN, URICACID in the last 168 hours. ABG (Arterial Blood Gas) No results found for: PHART, PO2ART, LTI0ISJ, TGV6KIZ Microbiology: Microbiology Results (Last 30 days) No results found for the last 720 hours. Imaging: Results for orders placed or performed during the hospital encounter of 06/02/24 XR Chest One View (Exam End: 06/03/2024 2:41 AM) Result Value WORKSTATION ID [id number] Impression No radiographically evident acute cardiopulmonary process. Thank you for letting us participate in the care of this patient. If you are a health care provider and have any questions regarding this report, please contact the number below. For patients who have questions please contact the health director of health care marketing that requested your imaging first. Electronically signed by: Corazon Mauro MD, [facility] ([phone]), at 06/03/2024 3:[address] Chest wo Contrast (Generic) (Exam End: 06/03/2024 4:33 PM) Result Value WORKSTATION ID [id number] Impression Cardiomegaly. Biventricular ICD leads in place. Thank you for letting us participate in the care of this patient. If you are a health care provider and have any questions regarding this report, please contact the number below. For patients who have questions please contact the health director of health care marketing that requested your imaging first. Electronically signed by: Stuart Aponte MD, [facility] ([phone]), at 06/03/2024 4:47 PM TTE: Limited echo performed by fellow aviation safety technician to assess LV function. Left ventricle [...] ischemic cardiomyopathy with HFrEF (~30% EF), prior SD with stents, DM type 2, HTN, HLD, [...] all the information they need regarding the MAINFRAME APPLICATIONS DEVELOPER-D.Plan for MRI tomorrow. Starting 40 mg IV [...] a lytic and brought directly to the Medical Bill Processor. Cardiac catheterization demonstrated multivessel disease with severe [...] maintenance of 40. Melida Valdes MD Staff Director Of Regional Sales * Migel Javier RN - 06/05/2024 6:21 AM EDT Implanted device record scanned into: Chart Review-->Media-->External Cardiology-->03/25/2024. Medtronic Amplia MRI Quad CRTD [id number] Serial #: [id number] DDD mode A + Bi/V Rates 50-130 Migel Javier RN * Dain Colón MD - 06/04/2024 11:16 AM EDT Implant Records Requested Type: MAINFRAME APPLICATIONS DEVELOPER-D Pourer: Medtronic Product: [id number] Amplia MRI MRI compatibility: Compatible for 1.5-3 T Model #: [id number] Placed at: [place], [place] Records requested for MRI: 1. Operative report 2. Implant log I requested that these records be sent to our MRI department, Dain Colón MD 06/04/24 11:58 AM * Dain Colón MD - 06/04/2024 6:57 AM EDT Images from the original note were not included. . Cardiology Progress Note Patient info: Name: George Mehta : 1955 PCP: Mauro Berumen MD PCP phone number: [phone] Date of Admission: 06/02/2024 ( Hospital Day 2 days ) Attending:Delroy Fofana MD ID: 69 y.o. male with a h/o DM type 2, HTN, HLD, current smoker (2-3 cigarettes/day), HFrEF with anICD for low EF (~30%), and CAD with prior SD x3 with JENNA placed in [place], Melanoma, PAD, presented to [facility] with 1 hour of retrosternal CP [...] in the last 7068 hours. Invalid input(s): [id number] Recent Labs 06/03/24 2005 06/03/24 1748 06/03/24 1114 06/03/24 0754 06/02/24 2331 POCGLU 136 191 166 195 156 Heme No results for input(s): LDH, HAPTOGLOBIN, URICACID in the last 168 hours. ABG (Arterial Blood Gas) No results found for: PHART, PO2ART, HFY6AWJ, HLQ3TTT Microbiology: Microbiology Results (Last 30 days) No results found for the last 720 hours. Imaging: Results for orders placed or performed during the hospital encounter of 06/02/24 XR Chest One View (Exam End: 06/03/2024 2:41 AM) Result Value WORKSTATION ID [id number] Impression No radiographically evident acute cardiopulmonary process. Thank you for letting us participate in the care of this patient. If you are a health care provider and have any questions regarding this report, please contact the number below. For patients who have questions please contact the health director of health care marketing that requested your imaging first. Electronically signed by: Corazon Mauro MD, [facility] ([phone]), at 06/03/2024 3:[address] Chest wo Contrast (Generic) (Exam End: 06/03/2024 4:33 PM) Result Value WORKSTATION ID [id number] Impression Cardiomegaly. Biventricular ICD leads in place. Thank you for letting us participate in the care of this patient. If you are a health care provider and have any questions regarding this report, please contact the number below. For patients who have questions please contact the health director of health care marketing that requested your imaging first. Electronically signed by: Stuart Aponte MD, [facility] ([phone]), at 06/03/2024 4:47 PM TTE: Limited echo performed by fellow aviation safety technician to assess LV function. Left ventricle [...] ischemic cardiomyopathy with HFrEF (~30% EF), prior SD with stents, DM type 2, HTN, HLD, [...] -Lasix 40 mg IV given in the supervisor cytogenetic laboratory; assess diuretic response, consider re-dosing -Continue carvedilol; [...] a lytic and brought directly to the Medical Bill Processor. Cardiac catheterization demonstrated multivessel disease with severe [...] Friday -Diuresis with Jovanni Valdes MD Staff Director Of Regional Sales * Fatmata Mcallister PT - 06/03/2024 3:29 [...] vs PCI) Fatmata Mcallister PT, MSPT Pager [phone] Inpatient Physical Therapy * Marlin Gómez MD [...] Marlin Gómez MD Cardiology S2, Pager # [phone] 06/03/2024 * Delroy Fofana MD - 06/03/2024 7:16 AM EDT Images from the original note were not included. . Cardiology Progress Note Patient info: Name: George Mehta : 1955 PCP: Mauro Berumen MD PCP phone number: [phone] Date of Admission: 06/02/2024 ( Hospital Day 1 day ) Attending:Nuha Rojo MD ID: 69 y.o. male with a h/o DM type 2, HTN, HLD, current smoker (2-3 cigarettes/day), HFrEF with anICD for low EF (~30%), and CAD with prior SD x3 with JENNA placed in [place], Melanoma, PAD, presented to [facility] with 1 hour of retrosternal CP [...] in the last 7068 hours. Invalid input(s): [id number] Recent Labs 06/02/24 2331 POCGLU 156 Heme No results for input(s): LDH, HAPTOGLOBIN, URICACID in the last 168 hours. ABG (Arterial Blood Gas) No results found for: PHART, PO2ART, AHL9JKL, MHY3HFA Microbiology: Microbiology Results (Last 30 days) No results found for the last 720 hours. Imaging: Results for orders placed or performed during the hospital encounter of 06/02/24 XR Chest One View (Exam End: 06/03/2024 2:41 AM) Result Value WORKSTATION ID [id number] Impression No radiographically evident acute cardiopulmonary process. Thank you for letting us participate in the care of this patient. If you are a health care provider and have any questions regarding this report, please contact the number below. For patients who have questions please contact the health director of health care marketing that requested your imaging first. Electronically signed by: Corazon Mauro MD, [facility] ([phone]), at 06/03/2024 3:06 AM TTE: Limited echo performed by fellow aviation safety technician to assess LV function. Left ventricle [...] ischemic cardiomyopathy with HFrEF (~30% EF), prior SD with stents, DM type 2, HTN, HLD, [...] -Lasix 40 mg IV given in the supervisor cytogenetic laboratory; assess diuretic response, consider re-dosing -Continue carvedilol; [...] of care per Dain Colón MD (medical office receptionist assistant). Please refer [...] lytic (TNK) and brought directly to the supervisor cytogenetic laboratory. The cath demonstrated 3VD with diffuse disease [...] - 06/13/2024 10:58 AM EST ICU Blue (#[id number]) H&P Patient info: Name: George Mehta : 1955 PCP: Mauro Berumen MD PCP phone number: [phone] Date of Admission: 06/02/2024 ( Hospital Day 11 days ) Attending:Haja Byrnes MD ID: George Mehta is a 69 y.o. male with a h/o DM type 2, HTN, HLD, current smoker (2-3 cigarettes/day), HFrEF with an ICD for low EF (~30%), and CAD with prior SD x3 with JENNA placed in [place], Melanoma, PAD, presented to [facility] with 1 hour of retrosternal CP (05/13) while watching TV, foundto have STEMI. HPI: Shahnaz Scanlon H&P 06/02 69 y.o. male with a h/o DM type 2, HTN, HLD, current smoker (2-3 cigarettes/day), HFrEF with an ICD for low EF (~30%), and CAD with prior SD x3 with JENNA placed in [place], Melanoma, PAD, presented to [facility] with 1 hour of retrosternal CP (05/13) while watching TV. CP was non-radiating, not asso ciated with diaphoresis, nausea, or SOB. Denies orthopnea, MARTÍNEZ, palpitations, or LE edema. ECG showed findings consistent with anterior STEMI. He received TNK and was transferred for PCI. Coronary angiography showed a small, non-dominant RCA with vknv-wp-kfmoasio disease and a dominant,heavily calcified left system with prior stents in the LAD and OM. The LM bifurcates into the LAD and LCX, both heavily calcified. The proximal LCX has a 75% calcified, aneurysmal lesion, and an 80% calcified lesion distally before a large OM2. OM1 is a LEAD COOK with in-stent restenosis, filling retrograde via collaterals. [...] 40 mg Lasix was administered in the supervisor cytogenetic laboratory. Cardiac surgery was consulted and plan for [...] Blood Gas) No results for input(s): PHART, XJU1XAM, PO2ART, XLP6XPP, LACTATEVEN, LSY1ETM, PFRATIOART2 in the last 168 hours. VBG (Venous Blood Gas) Recent Labs 06/10/24 1742 PHVEN 7.34 PO2VEN 24 EEZ0YCF 27.4 Mixed Venous Sat No results for input(s): U8NGRV6 in the last 168 hours. Intake/Output Summary [...] in the last 7068 hours. Invalid input(s): GDLMVKFEMOF3R Recent Labs 06/13/24 0741 06/13/24 0325 06/12/24 2353 06/12/24 1932 06/12/24 1541 06/12/24 1121 06/12/24 0800 06/12/24 0425 06/11/24 2356 06/11/24 2025 06/11/24 1624 06/11/24 1108 POCGLU 126 99 141 158 113 207* 169 132 135 210* 81 233* Heme No results for input(s): LDH, HAPTOGLOBIN, URICACID in the last 168 hours. ABG (Arterial Blood Gas) No results for input(s): PHART, QJD5YNA, PO2ART, FSO2OMY, LACTATEVEN, JRF9INR, PFRATIOART2 in the last 168 hours. VBG (Venous Blood Gas) Recent Labs 06/10/24 1742 PHVEN 7.34 PO2VEN 24 TGL7QRE 27.4 Mixed Venous Sat No results for input(s): A2YYAD7 in the last 168 hours. Microbiology: Microbiology Results (Last 30 days) No results found for the last 720 hours. Assessment & Plan: George Mehta is a 69 y.o. male with CAD, ischemic cardiomyopathy with HFrEF (~30% EF), prior SD with stents, DM type 2, HTN, HLD, active smoker, presented with anterior STEMI. Angiography revealedsevere multivessel CAD with extensive calcification and YUE 3 flow in all vessels, without a clearculprit lesion. Currently pain-free after TNK, Plavix, ASA, and heparin, with mildly elevated LVEDPat 40 mmHg and mild volume overload. Admitted to [facility] for clarence-operative management following IABP placement. Planned for CABG 06/14. 06/13/2024 Patient now s/p IABP placement. Procedure occurred without complication. IABP set to 1:1. Will continue with heparin for ASCVD. Plan for CABG 06/14. Patient NPO at SD. #ASCVD / STEMI: -Holding Plavix; continue ASA [...] TUD (abstinent since admission), ASCVD with multipleprior SD and PCIs, ICM/HFrEF LVEF 30% (all territories [...] is in the chart Rebeca Prado MD Taxi Driver PGY6 [phone] * Shahnaz Scanlon MD - [...] low EF (~30%), and CAD with prior SD x3 with JENNA placed in [facility], presented to [facility] with 1 hour of retrosternal CP (05/13) while watching TV. CP was non-radiating, not assoc iated with diaphoresis, nausea, or SOB. Denies orthopnea, MARTÍNEZ, palpitations, or LE edema. ECG showed findings consistent with anterior STEMI. He received TNK and was transferred for PCI. Coronary angiography showed a small, non-dominant RCA with hmsv-tc-yyubemhv disease and a dominant,heavily calcified left system with prior stents in the LAD and OM. The LM bifurcates into the LAD and LCX, both heavily calcified. The proximal LCX has a 75% calcified, aneurysmal lesion, and an 80% calcified lesion distally before a large OM2. OM1 is a LEAD COOK with in-stent restenosis, filling retrograde via collaterals. [...] 40 mg Lasix was administered in the supervisor cytogenetic laboratory. Past Medical History: As per HPI Significant [...] Affect: Mood normal. Behavior: Behavior normal. Diagnostics: [facility] 06/02/2024 Coronary angiography revealed small non [...] ischemic cardiomyopathy with HFrEF (~30% EF), prior SD with stents, DM type 2, HTN, HLD, [...] -Lasix 40 mg IV given in the supervisor cytogenetic laboratory; assess diuretic response. -Continue carvedilol; hold Entresto [...] & Follow-up Care: Contact information for follow-up [facility] [address] [facility] [address] Cardiac Rehab, [address] [address] JAMIE GRAMAJO confirmed with [facility] that they [...] outpatient Phase 2 Cardiac Rehabilitation at [facility]. The patient agrees to a referral [...] MANAGED MEDICARE / Plan: AARP [facility] MANAGED MEDICARE COMPLETE / Product Type: *No Product type* / Secondary Insurance: N/A Last Physical Therapy Recommendation: (home with ) with to be determined (06/15/24 1028) Plan for discharge is: Home w/ Services Outpatient Agency/Support Group Needs: Homecare agency Agency Choices: [facility] Home Health Services: Medication checks, Registered Nurse, Physical Therapy Agency Referrals: pending clinical course and PT/OT recs [facility] [address] [facility] [address] PHONE: [phone] FAX: [phone] Transportation: family or friend will provide Barriers [...] recs Patient is insured through: Primary Insurance: [facility] [employer] MEDICARE Payor: [facility] [employer] MEDICARE / Plan: [facility] MANAGED MEDICARE COMPLETE / Product Type: *No Product type* / Secondary Insurance: N/A Plan for discharge is: Home w/ Services Outpatient Agency/Support Group Needs: Homecare agency Agency Choices: [facility] Services: Medication checks, Registered Nurse, Physical Therapy Agency Referrals: pending clinical course and PT/OT recs [facility] [address] [place] [address] PHONE: [phone] FAX: [phone] Transportation: family or friend will provide Barriers [...] Operative Note Patient Name: George Mehta : [id number] MR#: [id number] Case Date: 06/14/2024 Surgeon: Surgeons and Role: * Bobby Loja MD - Primary * Rashi Bass PA - Physician Enterprise Sales Person Preoperative diagnosis: CAD, MARIALUISA flickering mass on [...] procedures today and tomorrow. Report called to [facility] - all belongings with patient. PLAN MOVING FORWARD: laboratory engineer and transfer to [facility]. INDIVIDUALIZED FALL PREVENTION [...] No Patient is insured through: Primary Insurance: [facility] MANAGED MEDICARE Payor: [facility] MANAGED MEDICARE / Plan: AARP [employer] MANAGED MEDICARE COMPLETE / Product Type: *No Product type* / Secondary Insurance: N/A Plan for discharge is: Home w/ Services Outpatient Agency/Support Group Needs: Homecare agency, Agency Choices: [facility] Home Health Services: Medication checks, Registered Nurse, Physical Therapy Agency Referrals: [facility] [address] [place] [address] RN / PT Routed 06/10 Transportation: family [...] with home health services when medically ready. fruit coordinator/Operations Analyst will continue to follow patient???s progress and remain available if situation changes for coordination of care, psychosocial support and/or discharge planning. Anticipated Date of Discharge: 06/18/2024 Mariia Montero RN CM Extension [phone] * Plan of Care - Migel Javier [...] No Patient is insured through: Primary Insurance: [facility] [employer] MEDICARE Payor: [facility] [employer] MEDICARE / Plan: [facility] [employer] MEDICARE COMPLETE / Product Type: *No Product [...] consult for high risk PCI vs CABG fruit coordinator/Operations Analyst will continue to follow patient???s progress and remain available if situation changes for coordination of care, psychosocial support and/or discharge planning. Anticipated Date of Discharge: 06/11/2024 Mariia Montero RN Extension [phone] * Plan of Care - Becca Hope [...] EVALUATION: Ongoing * Consult Note - Gabriela Cahn RN - 06/07/2024 8:08 AM EST During [...] ischemic cardiomyopathy with HFrEF (~30% EF), prior SD with stents, DM type 2, HTN, HLD, [...] CABG and to provide a review of ad terminal makeup operator diabetes care. Diabetes History: George Mehta [...] Breakfast- varies - eggs with khoury or kinyarwanda muffin Lunch- turkey sandwich Supper- meat and [...] Infusions: heparin (porcine) infusion 1,400 Units/hr (06/06/24 6647) PRN: insulin lispro, potassium chloride ER OR [...] ischemic cardiomyopathy with HFrEF (~30% EF), prior SD with stents, DM type 2, HTN, HLD, [...] Baumann APRN Endocrinology Diabetes Management Service Pager: [phone] Weekends please page [phone] 80 minute visit was spent in counseling [...] Appropriate) * Plan of Care - Migel Javire RN - 06/05/2024 6:33 AM EDT OUTCOME [...] y.o. male with a PMHx of previous SD s/p PCI x3, ICM/HFrEF (LVEF 30%) s/p ICD, DMII, HTN, HLD, remote melanoma, and smoker who presented to [facility] last night via EMS after developing acute, severe chest pain while watching TV. Patient was ruled in for STEMI, given TNK, ASA, plavix, heparin gtt, and sent to [facility] for coronary angiography. LHC demonstrated severely calcified left coronary system with notable LCx 75/80% lesions and LEAD COOK OM1 with ISR with collateral retrograde filling, [...] elevation myocardial infarction) Past Medical History: previous SD s/p PCI x3 ICM/HFrEF (LVEF 30%) s/p [...] is large. OM1 appears to be a LEAD COOK, with in stentrestenosis and fills retrograde via [...] y.o. male admitted with STEMI s/p TNK, [facility] showing multivessel CAD including ISR, no [...] service. Signed: Paula Treviño PA-C [facility] Section of Cardiac Surgery Date: 06/03/2024 * Initial Assessments - Natalie, Catina A, FARM ADVISER - 06/03/2024 10:32 AM EDT Office of [...] surrogate would be surrogate decision maker per [place] decision making law. (Only good for 180 days) Any patient receiving care in [place] must abide by [place] law. The hierarchy for surrogate decision making [...] (i) The agent with financial power of ip attorney or a conservator appointed in accordance [...] has the electric, gas, oil, or water [employer] threatened to shut off services in your [...] in the bathroom) Home Address confirmed as: [address] [place] [address] [address] [facility] [address] Social & Family Supports: All names listed [...] Pertinent/Service Specific Information: Health/Prescription Coverage: Primary Insurance: [facility] [employer] MEDICARE Payor: [facility] MANAGED MEDICARE / Plan: [facility] MANAGED MEDICARE COMPLETE / Product Type: *No Product type* / Secondary Insurance: N/A ; Prescription Coverage: Yes Preferred Pharmacy: [id number] - [place], [place] - [address] [facility] [address] [place] [id number] [place] Status: Patient is a : No Primary Care Provider confirmed: Mauro Berumen MD [phone] Patient/Caregiver Goals of Treatment: Potential Needs for [...] care as indicated. [facility], [phone]. [phone] * Brief Op Note - Angeles Gaxiola PA - 06/03/2024 12:23 AM EDT Preliminary Cardiac Catheterization Procedure Note: Patient Name: George Mehta : [id number] MR#: [id number] Case Date: 06/02/2024 - 06/03/2024 Circus [place]stabout: Surgeons and Role: * Nuha Shen MD - Primary * Angeles Gaxiola PA - Physician Enterprise Sales Person Preoperative diagnosis: STEMI Postoperative diagnosis: * STEMI * Procedure(s) performed: RRA access [facility] Coronary angiogram IVUS LM/LAD/LCX Access: 6 Fr RRA A time-out was conducted prior to the start of the procedure to verify the correct patient and procedure, procedure location, and all relevant critical information. Preliminary findings: 69 year old current smoker (1-2 cigarette's per day), DM type 2, hypertension, dyslipidemia, ICD for HFrEF/low EF (~30%), CAD with prior SD and 3 stents historically (in [place]) who presented to [facility] with 1 hour of rest chest [...] is large. OM1 appears to be a LEAD COOK, with in stentrestenosis and fills retrograde via [...] receive 40 mg of lasix in the supervisor cytogenetic laboratory. 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) 06/14/2024 7:34 AM EST CAD Endoscopy W/Video-Asst Vein [place], Cabg ([id number]) 06/14/2024 7:34 AM EST CAD Cabg, Artery-Vein, Two ([id number]) 06/14/2024 7:34 AM EST CAD Cabg, Arterial, Single ([id number]) 06/14/2024 7:34 AM EST CAD TRANSESOPHAGEAL ECHOCARDIOGRAM IN THE OR Routine 06/14/2024 7:20 AM EST Coronary artery disease involving [place] coronary artery of [place] heart without angina pectoris POC, GLUCOSE Routine [...] * POC, GLUCOSE (06/21/2024 3:51 AM EST) [facility] Glucometer, POC 142 65 - 199 mg/dL 06/21/2024 3:51 AM EST [facility] Comment:Supplemental ranges: <140 mg/dL before meals <180 mg/dL all other times of the day. Blood CAPILLARY BLOOD / Unknown 06/21/2024 3:51 AM EST 06/21/2024 3:51 AM EST Bobby Loja MD POINT OF CARE TEST O RDERABLES [facility] [place] [address] * (ABNORMAL) Basic Metabolic Panel (06/21/2024 2:09 [...] APRN CHEMISTRY ORDERABL ES Performing Organization Address [facility] Co de Phone Number [facility] [place] [address] * POC, GLUCOSE (06/21/2024 12:04 AM EST) [...] O RDERABLES [facility] [place] [address] * POC, GLUCOSE (06/20/2024 11:14 PM EST) Glucometer, POC 67 65 - 199 mg/dL 06/20/2024 11:14 PM EST [facility] Comment:Supplemental ranges: <140 mg/dL before meals <180 mg/dL all other times of the day. Blood CAPILLARY BLOOD / Unknown 06/20/2024 11:14 PM EST 06/20/2024 11:14 PM EST Bobby Loja MD POINT OF CARE TEST O NIKA Performing Organization Address [facility] Co de Phone Number [facility] [place] [address] * POC, GLUCOSE (06/20/2024 7:16 PM EST) Glucometer, POC 132 65 - 199 mg/dL 06/20/2024 7:16 PM EST [facility] Comment:Supplemental ranges: <140 mg/dL before meals <180 mg/dL all other times of the day. Blood CAPILLARY BLOOD / Unknown 06/20/2024 7:16 PM EST 06/20/2024 7:16 PM EST Bobby Loja MD POINT OF CARE TEST Abimael MAHER Performing Organization Address [facility] Co de Phone Number [facility] [place] [address] * POC, GLUCOSE (06/20/2024 3:39 PM EST) Glucometer, POC 124 65 - 199 mg/dL 06/20/2024 3:40 PM EST [facility] Comment:Supplemental ranges: <140 mg/dL before meals <180 mg/dL all other times of the day. Blood CAPILLARY BLOOD / Unknown 06/20/2024 3:39 PM EST 06/20/2024 3:40 PM EST Bobby Loja MD POINT OF CARE TEST O NIKA Performing Organization Address [facility] Co de Phone Number [facility] [place] [address] * POC, GLUCOSE (06/20/2024 12:02 PM EST) [...] CARE TEST O NIKA Performing Organization Address [facility] Co de Phone Number [facility] [place] [address] * POC, GLUCOSE (06/20/2024 7:10 AM EST) [...] CARE TEST Abimael MAHER Performing Organization Address [facility] Co de Phone Number [facility] [place] [address] * (ABNORMAL) Basic Metabolic Panel (06/20/2024 2:28 [...] - 107 mMol/L 06/20/2024 3:06 AM EST [facility] EST Keila Hanley APRN CHEMISTRY ORDERABL ES [facility] [place] [address] * POC, GLUCOSE (06/20/2024 12:32 AM EST) Glucometer, POC 86 65 - 199 mg/dL 06/20/2024 12:32 AM EST [facility] Comment:Supplemental ranges: <140 mg/dL before meals <180 mg/dL all other times of the day. Blood CAPILLARY BLOOD / Unknown 06/20/2024 12:32 AM EST 06/20/2024 12:32 AM EST Bobby Loja MD POINT OF CARE TEST O RALPHERAPIETER Performing Organization Address [facility] Co de Phone Number [facility] [place] [address] * (ABNORMAL) POC, GLUCOSE (06/20/2024 12:02 AM EST) Glucometer, POC 59(L) 65 - 199 mg/dL 06/20/2024 12:02 AM EST [facility] Comment:Supplemental ranges: <140 mg/dL before meals <180 mg/dL all other times of the day. Blood CAPILLARY BLOOD / Unknown 06/20/2024 12:02 AM EST 06/20/2024 12:03 AM EST Bobby Loja MD POINT OF CARE TEST O NIKA Performing Organization Address [facility] Co de Phone Number [facility] [place] [address] * POC, GLUCOSE (06/19/2024 8:15 PM EST) Glucometer, POC 131 65 - 199 mg/dL 06/19/2024 8:15 PM EST [facility] Comment:Supplemental ranges: <140 mg/dL before meals <180 mg/dL all other times of the day. Blood CAPILLARY BLOOD / Unknown 06/19/2024 8:15 PM EST 06/19/2024 8:15 PM EST Bobyb Loja MD POINT OF CARE TEST O NIKA Performing Organization Address [facility] Co de Phone Number [facility] [place] [address] * POC, GLUCOSE (06/19/2024 6:01 PM EST) Glucometer, POC 129 65 - 199 mg/dL 06/19/2024 6:01 PM EST [facility] Comment:Supplemental ranges: <140 mg/dL before meals <180 mg/dL all other times of the day. Blood CAPILLARY BLOOD / Unknown 06/19/2024 6:01 PM EST 06/19/2024 6:02 PM EST Bobby Loja MD POINT OF CARE TEST O NIKA Performing Organization Address [facility] Co de Phone Number [facility] [place] [address] * POC, GLUCOSE (06/19/2024 4:51 PM EST) Glucometer, POC 155 65 - 199 mg/dL 06/19/2024 4:51 PM EST [facility] Comment:Supplemental ranges: <140 mg/dL before meals <180 mg/dL all other times of the day. Blood CAPILLARY BLOOD / Unknown 06/19/2024 4:51 PM EST 06/19/2024 4:51 PM EST Bobby Loja MD POINT OF CARE TEST Abimael MAHER Performing Organization Address [facility] de Phone Number [facility] [place] [address] * POC, GLUCOSE (06/19/2024 12:37 PM EST) Glucometer, POC 136 65 - 199 mg/dL 06/19/2024 12:37 PM EST [facility] Comment:Supplemental ranges: <140 mg/dL before meals <180 mg/dL all other times of the day. Blood CAPILLARY BLOOD / Unknown 06/19/2024 12:37 PM EST 06/19/2024 12:37 PM EST Bobby Loja MD POINT OF CARE TEST O NIKA Performing Organization Address [facility] Co de Phone Number [facility] [place] [address] * POC, GLUCOSE (06/19/2024 11:20 AM EST) Glucometer, POC 185 65 - 199 mg/dL 06/19/2024 11:21 AM EST [facility] Comment:Supplemental ranges: <140 mg/dL before meals <180 mg/dL all other times of the day. Blood CAPILLARY BLOOD / Unknown 06/19/2024 11:20 AM EST 06/19/2024 11:21 AM EST Bobby Loja MD POINT OF CARE TEST O NIKA Performing Organization Address [facility] Co de Phone Number [facility] [place] [address] * POC, GLUCOSE (06/19/2024 7:21 AM EST) Glucometer, POC 125 65 - 199 mg/dL 06/19/2024 7:21 AM EST [facility] Comment:Supplemental ranges: <140 mg/dL before meals <180 mg/dL all other times of the day. Blood CAPILLARY BLOOD / Unknown 06/19/2024 7:21 AM EST 06/19/2024 7:22 AM EST Bobby Loja MD POINT OF CARE TEST Abimael MAHER Performing Organization Address [facility] Co de Phone Number [facility] [place] [address] * POC, GLUCOSE (06/19/2024 4:52 AM EST) [...] NIKA Performing Organization Address City/[facility] Co de Phone Number [facility] [place] [address] * POC, GLUCOSE (06/19/2024 4:13 AM EST) Glucometer, POC 67 65 - 199 mg/dL 06/19/2024 4:13 AM EST [facility] Comment:Supplemental ranges: <140 mg/dL before meals <180 mg/dL all other times of the day. Blood CAPILLARY BLOOD / Unknown 06/19/2024 4:13 AM EST 06/19/2024 4:13 AM EST Bobby Loja MD POINT OF CARE TEST O NIKA Performing Organization Address [facility] Co de Phone Number [facility] [place] [address] * (ABNORMAL) POC, GLUCOSE (06/19/2024 3:48 AM [...] NIKA Performing Organization Address City/[facility] Co de Phone Number [facility] [place] [address] * (ABNORMAL) Basic Metabolic Panel (06/19/2024 3:44 AM EST) Glucose 53(LLL) 65 - 199 mg/dL 06/19/2024 4:48 AM EST [facility] Comment:Glucose Concentratio n >=200 mg/dL plus symptoms is consistent with Diabetes Mellitus. Blood Urea Nitrogen 42(H) 10 - 20 mg/dL 06/19/2024 4:48 AM EST [facility] Creatinine 1.29 0.80 - 1.50 mg/dL 06/19/2024 4:48 AM EST [facility] Sodium 138 135 - 145 mMol/L 06/19/2024 4:48 AM EST [facility] Potassium 3.6 3.5 - 5.0 mMol/L 06/19/2024 4:48 AM EST [facility] Chloride 100 98 - 107 mMol/L 06/19/2024 4:48 AM EST [facility] [...] 61 mL/min/1. 73 m?? 06/19/2024 4:48 AM [facility] [...] EST Keila Hanley APRN CHEMISTRY ORDERABL ES [facility] [place] [address] * POC, GLUCOSE (06/19/2024 12:23 AM EST) Glucometer, POC 82 65 - 199 mg/dL 06/19/2024 12:23 AM EST [facility] Comment:Supplemental ranges: <140 mg/dL before meals <180 mg/dL all other times of the day. Blood CAPILLARY BLOOD / Unknown 06/19/2024 12:23 AM EST 06/19/2024 12:23 AM EST Bobby Loja MD POINT OF CARE TEST O NIKA Performing Organization Address [facility] Co de Phone Number [facility] [place] [address] * POC, GLUCOSE (06/18/2024 11:08 PM EST) Glucometer, POC 73 65 - 199 mg/dL 06/18/2024 11:08 PM EST [facility] Comment:Supplemental ranges: <140 mg/dL before meals <180 mg/dL all other times of the day. Blood CAPILLARY BLOOD / Unknown 06/18/2024 11:08 PM EST 06/18/2024 11:08 PM EST Bobby Loja MD POINT OF CARE TEST Abimael MAHER Performing Organization Address [facility] de Phone Number [facility] [place] [address] * POC, GLUCOSE (06/18/2024 7:32 PM EST) Glucometer, POC 167 65 - 199 mg/dL 06/18/2024 7:32 PM EST [facility] Comment:Supplemental ranges: <140 mg/dL before meals <180 mg/dL all other times of the day. Blood CAPILLARY BLOOD / Unknown 06/18/2024 7:32 PM EST 06/18/2024 7:32 PM EST Bobby Loja MD POINT OF CARE TEST O NIKA Performing Organization Address [facility] Co de Phone Number [facility] [place] [address] * POC, GLUCOSE (06/18/2024 6:08 PM EST) [...] CARE TEST O NIKA Performing Organization Address [facility] Co de Phone Number [facility] [place] [address] * POC, GLUCOSE (06/18/2024 4:17 PM EST) [...] CARE TEST O NIKA Performing Organization Address [facility] Co de Phone Number [facility] [place] [address] * POC, GLUCOSE (06/18/2024 12:09 PM EST) [...] NIKA Performing Organization Address City/[facility] Co de Phone Number [facility] [place] [address] * POC, GLUCOSE (06/18/2024 7:49 AM EST) [...] O NIKA [facility] [place] [address] * (ABNORMAL) Basic Metabolic Panel (06/18/2024 4:19 [...] APRN CHEMISTRY ORDERABL ES Performing Organization Address [facility] Co de Phone Number [facility] [place] [address] * POC, GLUCOSE (06/18/2024 3:50 AM EST) [...] O RDERABLES [facility] [place] [address] * POC, GLUCOSE (06/17/2024 11:10 PM EST) Glucometer, POC 92 65 - 199 mg/dL 06/17/2024 11:10 PM EST [facility] Comment:Supplemental ranges: <140 mg/dL before meals <180 mg/dL all other times of the day. Blood CAPILLARY BLOOD / Unknown 06/17/2024 11:10 PM EST 06/17/2024 11:10 PM EST Bobby Loja MD POINT OF CARE TEST O NIKA Performing Organization Address [facility] Co de Phone Number [facility] [place] [address] * POC, GLUCOSE (06/17/2024 7:54 PM EST) Glucometer, POC 126 65 - 199 mg/dL 06/17/2024 7:54 PM EST [facility] Comment:Supplemental ranges: <140 mg/dL before meals <180 mg/dL all other times of the day. Blood CAPILLARY BLOOD / Unknown 06/17/2024 7:54 PM EST 06/17/2024 7:54 PM EST Bobby Loja MD POINT OF CARE TEST O NIKA Performing Organization Address [facility] de Phone Number [facility] [place] [address] * POC, GLUCOSE (06/17/2024 4:07 PM EST) Glucometer, POC 141 65 - 199 mg/dL 06/17/2024 4:12 PM EST [facility] Comment:Supplemental ranges: <140 mg/dL before meals <180 mg/dL all other times of the day. Blood CAPILLARY BLOOD / Unknown 06/17/2024 4:07 PM EST 06/17/2024 4:12 PM EST Bobby Loja MD POINT OF CARE TEST O NIKA Performing Organization Address [facility] Co de Phone Number [facility] [place] [address] * XR Chest PA & Lateral (Generic) (06/17/2024 1:46 PM EST) WORKSTATION ID [id number] RAD Anatomical Region Laterality Modality Chest N/A [...] who have questions please contact the health director of health care marketing that requested your imaging first. ? Electronically signed by: Josselyn Spence MD, [facility] ([phone]), at 06/17/2024 4:49 PM Narrative 06/17/2024 4:49 [...] patients who have questions please contactthe health director of health care marketing that requested your imaging first. Electronically signed by: Josselyn Spence MD, [facility]([phone]), at 06/17/2024 4:49 PM Keilamariangel Hanley SENIOR WINDOWS ENGINEER IMG DX ORDERABLES * (ABNORMAL) POC, GLUCOSE [...] NIKA Performing Organization Address City/[facility]/ZIP Co de Phone Number [facility] [place] [address] * POC, GLUCOSE (06/17/2024 7:49 AM EST) [...] O NIKA [facility] [place] [address] * POC, GLUCOSE (06/17/2024 4:16 AM EST) [...] O RDERABLES [facility] [place] [address] * Lactate, Whole Blood (06/17/2024 2:39 AM EST) [facility] Lactate, Whole Blood 1.3 0.5 - 2.2 mmol/L 06/17/2024 2:46 AM EST [facility] Blood VENOUS BLOOD SPECIMEN / Unknown Venipuncture / Unknown 06/17/2024 2:39 AM EST 06/17/2024 2:43 AM EST Bobby Loja MD CHEMISTRY ORDERABLES Performing Organization Address City/[facility]/ZIP Co de Phone Number [facility] [place] [address] * (ABNORMAL) Hemogram (06/17/2024 2:39 AM EST) [facility] White Blood Cell 13.53(H) 4.00 - 9.50 x10(3)/mc L 06/17/2024 2:53 AM EST [facility] Red Blood Cell 3.55(L) 4.58 - 5.54 x10(6)/mc L 06/17/2024 2:53 AM EST [facility] Hemoglobin 10.8(L) 13.7 - 16.5 g/dL 06/17/2024 2:53 AM [facility] Hematocrit 33.0(L) 40.5 - 48.5 % 06/17/2024 2:53 AM EST [facility] Mean Cell Volume 93.0 82.9 [...] - 357 x10(3)/mc L 06/17/2024 2:53 AM [facility] Mean Platelet Volume 10.4 7.6 [...] ORDERABLE S [facility] [place] [address] * (ABNORMAL) Basic Metabolic Panel (06/17/2024 2:39 AM EST) Glucose 149 65 - 199 mg/dL 06/17/2024 3:14 AM EST [facility] [...] 98 - 107 mMol/L 06/17/2024 3:14 AM [facility] Carbon Dioxide 23 22 - 31 mMol/L 06/17/2024 3:14 AM [facility] Anion Gap 9 5 - 15 mMol/L 06/17/2024 3:14 AM [facility] Calcium 8.8 8.5 - 10.5 mg/dL 06/17/2024 3:14 AM [facility] Est Glomerular Filtration Rate - Male 50 mL/min/1. 73 m?? 06/17/2024 3:14 AM [facility] [...] CHEMISTRY ORDERABLES [facility] [place] [address] * (ABNORMAL) POC, GLUCOSE (06/17/2024 12:13 AM EST) Glucometer, POC 211(H) 65 - 199 mg/dL 06/17/2024 12:13 AM EST [facility] Comment:Supplemental ranges: <140 mg/dL before meals <180 mg/dL all other times of the day. Blood CAPILLARY BLOOD / Unknown 06/17/2024 12:13 AM EST 06/17/2024 12:14 AM EST Bobby Loja MD POINT OF CARE TEST O NIKA Performing Organization Address [facility] Co de Phone Number [facility] [place] [address] * (ABNORMAL) POC, GLUCOSE (06/16/2024 7:22 PM [...] MAHER Performing Organization Address City/[facility] Co de Phone Number [facility] [place] [address] * (ABNORMAL) POC, GLUCOSE (06/16/2024 6:14 PM EST) Glucometer, POC 220(H) 65 - 199 mg/dL 06/16/2024 6:14 PM EST [facility] Comment:Supplemental ranges: <140 mg/dL before meals <180 mg/dL all other times of the day. Blood CAPILLARY BLOOD / Unknown 06/16/2024 6:14 PM EST 06/16/2024 6:14 PM EST Bobby Loja MD POINT OF CARE TEST O RDBECKIE Performing Organization Address [facility] Co de Phone Number [facility] [place] [address] * Lactate, Whole Blood (06/16/2024 6:14 PM EST) Lactate, Whole Blood 1.8 0.5 - 2.2 mmol/L 06/16/2024 6:27 PM EST [facility] Blood VENOUS BLOOD SPECIMEN / Unknown Venipuncture / Unknown 06/16/2024 6:14 PM EST 06/16/2024 6:25 PM EST Bobby Loja MD CHEMISTRY ORDERABLES Performing Organization Address [facility] Co de Phone Number [facility] [place] [address] * (ABNORMAL) POC, GLUCOSE (06/16/2024 4:14 PM EST) Glucometer, POC 240(H) 65 - 199 mg/dL 06/16/2024 4:14 PM EST [facility] Comment:Supplemental ranges: <140 mg/dL before meals <180 mg/dL all other times of the day. Blood CAPILLARY BLOOD / Unknown 06/16/2024 4:14 PM EST 06/16/2024 4:14 PM EST Bobby Loja MD POINT OF CARE TEST O NIKA Performing Organization Address [facility] Co de Phone Number [facility] [place] [address] * POC, GLUCOSE (06/16/2024 11:49 AM EST) [...] O RDERABLES [facility] [place] [address] * (ABNORMAL) Hemogram (06/16/2024 11:44 AM EST) White Blood Cell 17.91(H) 4.00 - 9.50 x10(3)/mc L 06/16/2024 12:25 PM [facility] Red Blood Cell 3.47(L) 4.58 [...] auto 0.0 % 06/16/2024 12:25 PM EST [facility] NRBC Absolute <0.01 <0.01 x10(3)/mc L 06/16/2024 12:25 PM EST [facility] Blood VENOUS BLOOD SPECIMEN / Unknown Venipuncture / Unknown 06/16/2024 11:44 AM EST 06/16/2024 12:03 PM EST Bobby Loja MD HEMATOLOGY ORDERABLE S [facility] [place] [address] * Lactate, Whole Blood (06/16/2024 9:02 AM EST) Lactate, Whole Blood 1.8 0.5 - 2.2 mmol/L 06/16/2024 9:19 AM EST [facility] Blood VENOUS BLOOD SPECIMEN / Unknown Venipuncture / Unknown 06/16/2024 9:02 AM EST 06/16/2024 9:17 AM EST Narrative Authorizing Provider Result Saranya Loja MD CHEMISTRY ORDERABLES Performing Organization Address [facility]/ZIP Co de Phone Number [facility] [place] [address] * POC, GLUCOSE (06/16/2024 7:44 AM EST) [...] RDERABLES Performing Organization Address City/[facility]/ZIP Co de Phone Number [facility] [place] [address] * POC, GLUCOSE (06/16/2024 4:01 AM EST) [...] O RDERABLES [facility] [place] [address] * (ABNORMAL) Basic Metabolic Panel (06/16/2024 2:23 [...] mL/min/1. 73 m?? 06/16/2024 3:13 AM EST [facility] [...] Loja MD CHEMISTRY ORDERABLES Performing Organization Address [facility]/ZIP Co de Phone Number [facility] [place] [address] * POC, GLUCOSE (06/16/2024 2:21 AM EST) [...] RDERABLES Performing Organization Address City/[facility]/ZIP Co de Phone Number [facility] [place] [address] * (ABNORMAL) POC, GLUCOSE (06/16/2024 12:09 AM [...] NIKA Performing Organization Address City/[facility]/ZIP Co de Phone Number [facility] [place] [address] * (ABNORMAL) POC, GLUCOSE (06/15/2024 10:07 PM EST) Glucometer, POC 320(H) 65 - 199 mg/dL 06/15/2024 10:07 PM EST [facility] Comment:Supplemental ranges: <140 mg/dL before meals <180 mg/dL all other times of the day. Blood CAPILLARY BLOOD / Unknown 06/15/2024 10:07 PM EST 06/15/2024 10:07 PM EST Bobby Loja MD POINT OF CARE TEST O NIKA Performing Organization Address [facility]/ZIP Co de Phone Number [facility] [place] [address] * (ABNORMAL) POC, GLUCOSE (06/15/2024 7:56 PM [...] O NIKA [facility] [place] [address] * (ABNORMAL) POC, GLUCOSE (06/15/2024 7:52 PM [...] O NIKA [facility] [place] [address] * POC, GLUCOSE (06/15/2024 4:21 PM EST) Glucometer, POC 192 65 - 199 mg/dL 06/15/2024 4:21 PM EST [facility] Comment:Supplemental ranges: <140 mg/dL before meals <180 mg/dL all other times of the day. Blood CAPILLARY BLOOD / Unknown 06/15/2024 4:21 PM EST 06/15/2024 4:21 PM EST Bobby Loja MD POINT OF CARE TEST O NIKA Performing Organization Address [facility]/ZIP Co de Phone Number [facility] [place] [address] * POC, GLUCOSE (06/15/2024 3:27 PM EST) [...] O NIKA [facility] [place] [address] * POC, GLUCOSE (06/15/2024 2:23 PM EST) [...] NIKA Performing Organization Address City/[facility]/ZIP Co de Phone Number [facility] [place] [address] * POC, GLUCOSE (06/15/2024 1:26 PM EST) [...] NIKA Performing Organization Address City/[facility]/ZIP Co de Phone Number [facility] [place] [address] * (ABNORMAL) POC, GLUCOSE (06/15/2024 12:55 PM [...] NIKA Performing Organization Address City/[facility]/ZIP Co de Phone Number [facility] [place] [address] * (ABNORMAL) POC, GLUCOSE (06/15/2024 11:29 AM EST) Glucometer, POC 220(H) 65 - 199 mg/dL 06/15/2024 11:29 AM EST [facility] Comment:Supplemental ranges: <140 mg/dL before meals <180 mg/dL all other times of the day. Blood CAPILLARY BLOOD / Unknown 06/15/2024 11:29 AM EST 06/15/2024 11:29 AM EST Bobby Loja MD POINT OF CARE TEST O NIKA Performing Organization Address [facility]/ZIP Co de Phone Number [facility] [place] [address] * (ABNORMAL) Basic Metabolic Panel (06/15/2024 11:23 AM EST) Glucose 215(H) 65 - 199 mg/dL 06/15/2024 12:08 PM EST [facility] [...] - 15 mMol/L 06/15/2024 12:08 PM EST [facility] Calcium 8.3(L) 8.5 - 10.5 mg/dL 06/15/2024 12:08 PM EST [facility] Est Glomerular Filtration Rate - Male 49 mL/min/1. 73 m?? 06/15/2024 12:08 PM EST [facility] [...] ORDERABLES Performing Organization Address City/[facility]/ZIP Co de Phone Number [facility] [place] [address] * POC, GLUCOSE (06/15/2024 10:29 AM EST) [facility] Signature Glucometer, POC 189 65 - 199 mg/dL 06/15/2024 10:29 AM EST [facility] Comment:Supplemental ranges: <140 mg/dL before meals <180 mg/dL all other times of the day. Blood CAPILLARY BLOOD / Unknown 06/15/2024 10:29 AM EST 06/15/2024 10:29 AM EST Bobby Loja MD POINT OF CARE TEST O RDERABLES [facility] [place] [address] * POC, GLUCOSE (06/15/2024 9:45 AM EST) [...] NIKA Performing Organization Address City/[facility]/ZIP Co de Phone Number [facility] [place] [address] * (ABNORMAL) Cooximetry, POC (06/15/2024 9:31 AM [...] O NIKA [facility] [place] [address] * Cooximetry, POC (06/15/2024 9:22 AM EST) pO2, Coox 30 mmHg 06/15/2024 9:25 AM [facility] Hemoglobin, Coox 06/15/2024 9:25 AM [facility] Comment:QUES Oxyhemoglobin, Coox 06/15/2024 9:25 [...] O RDERABLES [facility] [place] [address] * (ABNORMAL) Blood Gas, Arterial POC (06/15/2024 [...] O RDERABLES [facility] [place] [address] * (ABNORMAL) POC, GLUCOSE (06/15/2024 8:37 AM EST) Glucometer, POC 204(H) 65 - 199 mg/dL 06/15/2024 8:37 AM EST [facility] Comment:Supplemental ranges: <140 mg/dL before meals <180 mg/dL all other times of the day. Blood CAPILLARY BLOOD / Unknown 06/15/2024 8:37 AM EST 06/15/2024 8:37 AM EST Bobby Loja MD POINT OF CARE TEST O NIKA Performing Organization Address [facility] Co de Phone Number [facility] [place] [address] * POC, GLUCOSE (06/15/2024 7:37 AM EST) Glucometer, POC 199 65 - 199 mg/dL 06/15/2024 7:37 AM EST [facility] Comment:Supplemental ranges: <140 mg/dL before meals <180 mg/dL all other times of the day. Blood CAPILLARY BLOOD / Unknown 06/15/2024 7:37 AM EST 06/15/2024 7:38 AM EST Bobby Loja MD POINT OF CARE TEST Abimael MAHER Performing Organization Address [facility] Co de Phone Number [facility] [place] [address] * (ABNORMAL) POC, GLUCOSE (06/15/2024 7:01 AM EST) Glucometer, POC 203(H) 65 - 199 mg/dL 06/15/2024 7:01 AM EST [facility] Comment:Supplemental ranges: <140 mg/dL before meals <180 mg/dL all other times of the day. Blood CAPILLARY BLOOD / Unknown 06/15/2024 7:01 AM EST 06/15/2024 7:01 AM EST Bobby Loja MD POINT OF CARE TEST Abimael MAHER [facility] [place] [address] * XR Chest One View (06/15/2024 6:31 AM EST) WORKSTATION ID [id number] RAD Anatomical Region Laterality Modality Chest N/A [...] who have questions please contact the health director of health care marketing that requested your imaging first. ? Electronically signed by: Stuart Aponte MD, [facility] ??([phone]), at 06/15/2024 10:38 AM Narrative 06/15/2024 10:38 [...] patients who have questions please contactthe health director of health care marketing that requested your imaging first. Electronically signed by: Stuart Aponte MD, [facility]([phone]), at 06/15/2024 10:38 AM Bobby Loja MD [...] NIKA Performing Organization Address City/[facility] Co de Phone Number [facility] [place] [address] * POC, GLUCOSE (06/15/2024 5:06 AM EST) [...] RDERABLES Performing Organization Address City/[facility]/ZIP Co de Phone Number [facility] [place] [address] * POC, GLUCOSE (06/15/2024 4:05 AM EST) Glucometer, POC 160 65 - 199 mg/dL 06/15/2024 4:06 AM EST [facility] Comment:Supplemental ranges: <140 mg/dL before meals <180 mg/dL all other times of the day. Blood CAPILLARY BLOOD / Unknown 06/15/2024 4:05 AM EST 06/15/2024 4:06 AM EST Bobby Loja MD POINT OF CARE TEST O NIKA Performing Organization Address [facility] Co de Phone Number [facility] [place] [address] * POC, GLUCOSE (06/15/2024 3:07 AM EST) Glucometer, POC 151 65 - 199 mg/dL 06/15/2024 3:07 AM EST [facility] Comment:Supplemental ranges: <140 mg/dL before meals <180 mg/dL all other times of the day. Blood CAPILLARY BLOOD / Unknown 06/15/2024 3:07 AM EST 06/15/2024 3:07 AM EST Bobby Loja MD POINT OF CARE TEST O RDERAPIETER Performing Organization Address [facility]/ZIP Co de Phone Number [facility] [place] [address] * (ABNORMAL) Basic Metabolic Panel (06/15/2024 1:48 AM EST) Glucose 140 65 - 199 mg/dL 06/15/2024 2:38 AM EST [facility] Comment:Glucose Concentratio n >=200 mg/dL plus symptoms is consistent with Diabetes Mellitus. Blood Urea Nitrogen 21(H) 10 - 20 mg/dL 06/15/2024 2:38 AM EST [facility] Creatinine 1.27 0.80 - 1.50 mg/dL 06/15/2024 2:38 AM EST [facility] Sodium 140 135 - 145 mMol/L 06/15/2024 2:38 AM [facility] Potassium 4.4 3.5 - 5.0 mMol/L 06/15/2024 2:38 AM [facility] Chloride 108(H) 98 - 107 mMol/L 06/15/2024 2:38 AM [facility] Carbon Dioxide 23 22 - 31 mMol/L 06/15/2024 2:38 AM [facility] Anion Gap 9 5 - 15 mMol/L 06/15/2024 2:38 AM [facility] Calcium 8.3(L) 8.5 - 10.5 mg/dL 06/15/2024 2:38 AM [facility] Est Glomerular Filtration Rate - Male 62 mL/min/1. 73 m?? 06/15/2024 2:38 AM [facility] [...] CHEMISTRY ORDERABLES [facility] [place] [address] * (ABNORMAL) CBC (with Diff) (06/15/2024 1:48 AM EST) White Blood Cell 11.71(H) 4.00 - 9.50 x10(3)/mc L 06/15/2024 2:13 AM [facility] Red Blood Cell 4.14(L) 4.58 - 5.54 x10(6)/mc L 06/15/2024 2:13 AM [facility] Hemoglobin 12.5(L) 13.7 - 16.5 g/dL 06/15/2024 2:13 AM [facility] Hematocrit 38.4(L) 40.5 - 48.5 [...] 6.10 x10(3)/mc L 06/15/2024 2:13 AM EST [facility] Lymph % 8.0 % 06/15/2024 2:13 AM EST [facility] Lymph Absolute 0.94 0.90 - [...] Gran % 0.5 % 2:13 AM EST [facility] Immature Gran Absolute 0.06(H) 0.00 - 0.04 x10(3)/mc L 06/15/2024 2:13 AM EST [facility] Blood VENOUS BLOOD SPECIMEN / Unknown Venipuncture / Unknown 06/15/2024 1:48 AM EST 06/15/2024 1:52 AM EST Bobby Loja MD HEMATOLOGY ORDERABLE S [facility] [place] [address] * (ABNORMAL) Troponin - Single (06/15/2024 1:48 [...] [facility] Test [facility] Troponin - [email or web address] Reference: Fourth [place] Definition of Myocardial Infarction. Journal of the [place] [employer] 2018;72:3186-1263 Blood VENOUS BLOOD SPECIMEN / Unknown Venipuncture / Unknown 06/15/2024 1:48 AM EST 06/15/2024 1:52 AM EST Bobby Loja MD CHEMISTRY ORDERABLES [facility] [place] [address] * (ABNORMAL) Blood Gas, Arterial POC (06/15/2024 1:46 AM EST) Pathologist [facility] pH, Arterial 7.33(L) 7.35 - 7.45 06/15/2024 1:47 AM EST [facility] PCO2, Arterial 40 35 - 45 mmHg 06/15/2024 1:47 AM EST [facility] PO2, Arterial 131(H) 85 - 104 mmHg 06/15/2024 1:47 AM [facility] Bicarbonate, Arterial 20.7 20.0 - 26.0 mmol/L 06/15/2024 1:47 AM [facility] Base Excess, Arterial -5.2(L) -3.0 - 3.0 mmol/L 06/15/2024 1:47 AM [facility] Hemoglobin, Arterial 13.4(L) 13.7 - 16.5 g/dL 06/15/2024 1:47 AM [facility] Oxyhemoglobin, Arterial 97.9(H) 94.0 - [...] - 199 mg/dL 06/15/2024 1:47 AM EST [facility] Comment:Glucose Concentratio n >=200 mg/dL plus symptoms is consistent with Diabetes Mellitus. Blood ARTERIAL BLOOD / Unknown 06/15/2024 1:46 AM EST 06/15/2024 1:47 AM EST Bobby Loja MD POINT OF CARE TEST O NIKA Performing Organization Address City/[facility]/ZIP Co de Phone Number [facility] [place] [address] * POC, GLUCOSE (06/15/2024 1:05 AM EST) Glucometer, POC 116 65 - 199 mg/dL 06/15/2024 1:05 AM EST [facility] Comment:Supplemental ranges: <140 mg/dL before meals <180 mg/dL all other times of the day. Blood CAPILLARY BLOOD / Unknown 06/15/2024 1:05 AM EST 06/15/2024 1:05 AM EST Bobby Loja MD POINT OF CARE TEST O NIKA Performing Organization Address [facility] Co de Phone Number [facility] [place] [address] * POC, GLUCOSE (06/15/2024 12:16 AM EST) [...] NIKA Performing Organization Address City/[facility]/ZIP Co de Phone Number [facility] [place] [address] * Potassium (06/14/2024 11:28 PM EST) Potassium 4.1 3.5 - 5.0 mMol/L 06/14/2024 11:54 PM EST [facility] Blood VENOUS BLOOD SPECIMEN / Unknown Venipuncture / Unknown 06/14/2024 11:28 PM EST 06/14/2024 11:34 PM EST Bobby Loja MD CHEMISTRY ORDERABLES [facility] [place] [address] * POC, GLUCOSE (06/14/2024 10:58 PM EST) [...] RDERABLES Performing Organization Address City/[facility]/ZIP Co de Phone Number [facility] [place] [address] * POC, GLUCOSE (06/14/2024 9:55 PM EST) Glucometer, POC 152 65 - 199 mg/dL 06/14/2024 9:56 PM EST [facility] Comment:Supplemental ranges: <140 mg/dL before meals <180 mg/dL all other times of the day. Blood CAPILLARY BLOOD / Unknown 06/14/2024 9:55 PM EST 06/14/2024 9:56 PM EST Bobby Loja MD POINT OF CARE TEST O RDBECKIE [facility] [place] [address] * POC, GLUCOSE (06/14/2024 8:54 PM EST) [...] RDERAPIETER Performing Organization Address City/[facility]/ZIP Co de Phone Number [facility] [place] [address] * POC, GLUCOSE (06/14/2024 7:51 PM EST) [...] RDERAPIETER Performing Organization Address City/[facility]/ZIP Co de Phone Number [facility] [place] [address] * POC, GLUCOSE (06/14/2024 6:49 PM EST) [...] O RDERAPIETER [facility] [place] [address] * (ABNORMAL) Hemoglobin (06/14/2024 6:19 PM EST) [facility] Hemoglobin 13.1(L) 13.7 - 16.5 g/dL 06/14/2024 7:08 PM EST [facility] Blood VENOUS BLOOD SPECIMEN / Unknown Venipuncture / Unknown 06/14/2024 6:19 PM EST 06/14/2024 6:28 PM EST Bobby Loja MD HEMATOLOGY ORDERABLE S Performing Organization Address [facility] Co al Phone Number [facility] [place] [address] * Potassium (06/14/2024 6:19 PM EST) [facility] Potassium 3.9 3.5 - 5.0 mMol/L 06/14/2024 6:52 PM EST [facility] Blood VENOUS BLOOD SPECIMEN / Unknown Venipuncture / Unknown 06/14/2024 6:19 PM EST 06/14/2024 6:28 PM EST Bobby Loja MD CHEMISTRY ORDERABLES Performing Organization Address [facility] de Phone Number [facility] [place] [address] * (ABNORMAL) POC, GLUCOSE (06/14/2024 6:03 PM EST) [facility] Glucometer, POC 201(H) 65 - 199 mg/dL 06/14/2024 6:03 PM EST [facility] Comment:Supplemental ranges: <140 mg/dL before meals <180 mg/dL all other times of the day. Blood CAPILLARY BLOOD / Unknown 06/14/2024 6:03 PM EST 06/14/2024 6:03 PM EST Bobby Loja MD POINT OF CARE TEST O RDERABLES [facility] [place] [address] * (ABNORMAL) Blood Gas, Arterial POC (06/14/2024 4:51 PM EST) pH, Arterial 7.32(L) 7.35 - 7.45 06/14/2024 4:52 PM EST [facility] PCO2, Arterial 46(H) 35 - 45 mmHg 06/14/2024 4:52 PM [facility] PO2, Arterial 85 85 - [...] - 2.2 mmol/L 06/14/2024 4:52 PM EST [facility] Fraction of Inspired Oxygen 40 % 06/14/2024 4:52 PM EST [facility] PF Ratio 213 Ratio 06/14/2024 4:52 PM EST [facility] Comment:PF ratio calculated using the [...] NIKA Performing Organization Address City/[facility]/ZIP Co de Phone Number [facility] [place] [address] * POC, GLUCOSE (06/14/2024 4:00 PM EST) Pathologist enrich-in Glucometer, POC 184 65 - 199 mg/dL 06/14/2024 4:01 PM EST [facility] Comment:Supplemental ranges: <140 mg/dL before meals <180 mg/dL all other times of the day. Blood CAPILLARY BLOOD / Unknown 06/14/2024 4:00 PM EST 06/14/2024 4:01 PM EST Bobby Loja MD POINT OF CARE TEST Abimael MAHER Performing Organization Address City/[facility]/[place] [address] * XR Chest One View (06/14/2024 3:05 PM EST) [employer] WORKSTATION ID [id number] RAD Anatomical Region Laterality Modality Chest N/A [...] who have questions please contact the health director of health care marketing that requested your imaging first. ? Electronically signed by: Stuart Aponte MD, [facility] ??([phone]), at 06/14/2024 4:07 PM Narrative 06/14/2024 4:07 [...] patients who have questions please contactthe health director of health care marketing that requested your imaging first. Electronically signed by: Stuart Aponte MD, [facility]([phone]), at 06/14/2024 4:07 PM Bobby Loja MD IMG DX ORDERABLES * (ABNORMAL) Blood Gas, Arterial POC (06/14/2024 2:52 PM EST) pH, Arterial 7.28(LLL) 7.35 - 7.45 06/14/2024 2:53 PM EST [facility] PCO2, Arterial 50(H) 35 - [...] Arterial 0.1 <=1.5 % 06/14/2024 2:53 PM [facility] Sodium, Arterial 138 135 - 145 mmol/L 06/14/2024 2:53 PM [facility] Potassium, Arterial 4.2 3.5 - 5.0 mmol/L 06/14/2024 2:53 PM [facility] [...] RDERABLES Performing Organization Address City/[facility]/ZIP Co de Phone Number [facility] [place] [address] * EKG 12 Lead (06/14/2024 2:46 PM EST) Ventricular rate 80 BPM MUSE SYSTEM Atrial Rate 80 BPM MUSE SYSTEM P-R Interval 120 ms MUSE SYSTEM QRS Duration 108 ms MUSE SYSTEM Q-T Interval 454 ms MUSE SYSTEM QTC Calculated (Bezet) 523 ms MUSE SYSTEM Calculated P [place] 70 degrees MUSE SYSTEM Calculated R [place] 56 degrees MUSE SYSTEM Calculated T [place] 50 degrees MUSE SYSTEM INTERPRETATION AV dual-paced rhythm Abnormal ECG When compared with ECG of 03-JUN-2024 01:45, Vent. rate has increased BY ??17 BPM Confirmed by MD Marisol, Shaheen ([id number]) on 06/15/2024 1:57:23 PM MUSE SYSTEM 06/14/2024 2:46 PM EST 06/15/2024 1:57 PM EST Bobby Loja MD ECG ORDERABLES Performing Organization Address City/[facility]/ZIP Co de Phone Number MUSE SYSTEM * Prepare RBC (06/14/2024 2:27 PM EST) Status Information Returned [facility] Product Identification RBC [facility] Unit Number [id number] [facility] Product [facility] [id number] [facility] Unit Blood Type OPOS [facility] Specimen Expiration Date [facility] Volulme 350 [facility] Issue Date / Time [facility] Status [facility] Returned [facility] Product Identification RBC [facility] Unit Number [id number] [facility] Product Code [id number] [facility] Unit Blood Type OPOS [facility] Specimen [facility]piration Date [facility] Volulme 350 [facility] Issue Date / Time [facility] Blood 06/14/2024 6:2 5 AM EST Haja Byrnes MD BLOOD BANK PRODUCT O RDERAPIETER [facility] [place] [address] * (ABNORMAL) Cooximetry, POC (06/14/2024 1:52 PM EST) pO2, Coox 58 mmHg 06/14/2024 1:55 PM EST [facility] Hemoglobin, Coox 12.6(L) 13.7 - 16.5 g/dL 06/14/2024 1:55 PM EST [facility] Oxyhemoglobin, Coox 85.5 % 06/14/2024 1:55 PM EST [facility] Carboxyhemoglo bin, Coox 0.3 % 06/14/2024 1:55 PM EST [facility] Comment: Nonsmokers: 0.5-1.5% COHB ?? Smokers: Variable ??but usually less than 10% ?? Toxic: 20-30% COHB ?? Lethal: Greater than 60% COHB Methemoglobin, Coox 0.6 <=1.5 % 06/14/2024 1:55 PM EST [facility] Blood (Mixed Venous) 06/14/2024 1:52 PM EST 06/14/2024 1:55 PM EST Haja Byrnes MD POINT OF CARE TEST O NIKA Performing Organization Address City/[facility]/ZIP Co de Phone Number [facility] [place] [address] * (ABNORMAL) Blood Gas, Arterial POC (06/14/2024 12:47 PM EST) pH, Arterial 7.33(L) 7.35 - 7.45 06/14/2024 12:48 PM EST [facility] PCO2, Arterial 46(H) 35 - 45 mmHg 06/14/2024 12:48 PM EST [facility] PO2, Arterial 358(H) 85 - [...] 94.0 - 97.0 % 06/14/2024 12:48 PM [facility] Carboxyhemoglobin , Arterial 0.3 % 06/14/2024 12:48 PM [facility] Comment: Nonsmokers: 0.5-1.5% COHB ?? Smokers: Variable ??but usually less than 10% ?? Toxic: 20-30% COHB ?? Lethal: Greater than 60% COHB Methemoglobin, Arterial 0.5 <=1.5 % 06/14/2024 12:48 PM [facility] [...] O NIKA [facility] [place] [address] * (ABNORMAL) Cooximetry, POC (06/14/2024 12:42 PM [...] O NIKA [facility] [place] [address] * (ABNORMAL) Platelet count (06/14/2024 12:30 PM EST) Platelet 73(L) 145 - 357 x10(3)/mcL 06/14/2024 12:54 PM EST [facility] Blood ARTERIAL BLOOD / Unknown 06/14/2024 12:30 PM EST Comment:Pre-op diagnosis: CAD Bobby Loja MD HEMATOLOGY ORDERABLE S Performing Organization Address City/[facility]/ZIP Co de Phone Number [facility] [place] [address] * (ABNORMAL) Hemoglobin and Hematocrit, blood (06/14/2024 [...] MD HEMATOLOGY ORDERABLE S Performing Organization Address [facility]/ZIP Co de Phone Number [facility] [place] [address] * APTT (06/14/2024 12:30 PM EST) Partial [...] 12:42 PM EST Comment:Pre-op diagnosis: CAD Bobby Loaj MD HEMATOLOGY ORDERABLE S Performing Organization Address City/[facility]/ZIP Co de Phone Number [facility] [place] [address] * (ABNORMAL) Prothrombin Time (06/14/2024 12:30 PM [...] S Performing Organization Address City/[facility]/ZIP Co de Phone Number [facility] [place] [address] * Fibrinogen (06/14/2024 12:30 PM EST) Fibrinogen [...] ORDERABLE S [facility] [place] [address] * (ABNORMAL) Blood Gas, Arterial POC (06/14/2024 12:15 PM EST) pH, Arterial 7.38 7.35 - 7.45 06/14/2024 12:16 PM EST [facility] PCO2, Arterial 40 35 - 45 mmHg 06/14/2024 12:16 PM [facility] Bicarbonate, Arterial 22.9 20.0 - 26.0 mmol/L 06/14/2024 12:16 PM [facility] Base Excess, Arterial -2.3 -3.0 - 3.0 mmol/L 06/14/2024 12:16 PM [facility] Hemoglobin, Arterial 11.4(L) 13.7 - [...] O RDERABLES [facility] [place] [address] * (ABNORMAL) Blood Gas, Arterial POC (06/14/2024 [...] 1.15 - 1.33 mmol/L 06/14/2024 11:52 AM [facility] Glucose, Arterial 148 65 - 199 mg/dL 06/14/2024 11:52 AM [facility] Comment:Glucose Concentratio n >=200 mg/dL plus symptoms is consistent with Diabetes Mellitus. Blood ARTERIAL BLOOD / Unknown 06/14/2024 11:51 AM EST 06/14/2024 11:52 AM EST Haja Byrnes MD POINT OF CARE TEST O RDERABLES [facility] [place] [address] * (ABNORMAL) Blood Gas, Arterial POC (06/14/2024 [...] O RDERABLES [facility] [place] [address] * (ABNORMAL) Scan, Peripheral Blood (06/14/2024 11:23 AM EST) RBC Morphology Abnormal 06/14/2024 11:59 AM EST [facility] Platelet Estimate Decreased(A) Normal 06/14/2024 11:59 AM EST [facility] Rutherford cells 1-5 /HPF 06/14/2024 11:59 AM EST [facility] Blood ARTERIAL BLOOD / Unknown 06/14/2024 11:23 AM EST 06/14/2024 11:27 AM EST Bobby Loja MD HEMATOLOGY ORDERABLE S [facility] [place] [address] * (ABNORMAL) Platelet count (06/14/2024 11:23 AM EST) Platelet 86(L) 145 - 357 x10(3)/mcL 06/14/2024 11:59 AM EST [facility] Blood ARTERIAL BLOOD / Unknown 06/14/2024 11:23 AM EST Comment:Pre-op diagnosis: CAD Bobby Loja MD HEMATOLOGY ORDERABLE S [facility] [place] [address] * (ABNORMAL) Hemoglobin and Hematocrit, blood (06/14/2024 [...] ORDERABLE S [facility] [place] [address] * (ABNORMAL) Blood Gas, Arterial POC (06/14/2024 [...] O RDERABLES [facility] [place] [address] * (ABNORMAL) Blood Gas, Arterial POC (06/14/2024 [...] O NIKA [facility] [place] [address] * (ABNORMAL) Blood Gas, Arterial POC (06/14/2024 [...] - 1.33 mmol/L 06/14/2024 10:26 AM EST [facility] Glucose, Arterial 148 65 - 199 mg/dL 06/14/2024 10:26 AM EST [facility] Comment:Glucose Concentratio n >=200 mg/dL plus symptoms is consistent with Diabetes Mellitus. Blood ARTERIAL BLOOD / Unknown 06/14/2024 10:25 AM EST 06/14/2024 10:26 AM EST Haja Byrnes MD POINT OF CARE TEST O RDERABLES Performing Organization Address City/State/[facility] Co de Phone Number [facility] [place] [address] * Surgical Pathology (06/14/2024 9:53 AM EST) Case Report Surgical Pathology Report ? Case: [id number] ? Authorizing Provider: ??Bobby Loja MD ? Collected: ? 06/14/2024 0953 ? Ordering Location: ? Main Operating Room Kristen ?? Received: ?06/14/2024 1413 ? [facility] ? Hospital ? Pathologist: ? Sandra [...] Inking: External surface inked black Sections/Process ing: Forensic Psychiatrist sections in 4 cassettes labeled A1-A4. cmk B. Heart, Atrial Appendage, Left, . B - Labeled/Fixative : Heart, atrial appendage, left, fresh. Quantity/Size: Single, 3.3 x 1.5 x 0.8 cm. Tissue Description: Portion of heart tissue consisting of rodriguez-white, semitranslucent, smooth endocardium with rodriguez-brown muscular myocardium and thin translucent epicardium with adherent adipose tissue. No areas of discoloration identified. Sections/Process ing: Forensic Psychiatrist sections in 1 cassette labeled B1. cmk 06/18/2024 10:18 AM EST [facility] Result Note Routine 06/18/2024 10:18 AM [facility] Tissue SOFT TISSUE MASS / Unknown 06/14/2024 9:53 AM EST 06/14/2024 2:13 PM EST Comment:Mediastinal mass Tissue specimen (specimen) LEFT ATRIAL APPENDAGE ABSENT / Unknown 06/14/2024 10:54 AM EST 06/14/2024 2:13 PM EST Comment:MARIALUISA Bobby Loja MD PATHOLOGY/CYTOLOGY O RDERABLES [facility] [place] [address] * Cooximetry, POC (06/14/2024 9:00 AM EST) [...] O RDERABLES [facility] [place] [address] * (ABNORMAL) Blood Gas, Arterial POC (06/14/2024 [...] 0.3 <=1.5 % 06/14/2024 8:40 AM EST [facility] Sodium, Arterial 136 135 - 145 mmol/L 06/14/2024 8:40 AM [facility] Potassium, Arterial 4.2 3.5 - 5.0 mmol/L 06/14/2024 8:40 AM EST [facility] Chloride, Arterial 102 98 - 107 mmol/L 06/14/2024 8:40 AM EST [facility] Lactate, Arterial 0.9 0.5 - 2.2 mmol/L 06/14/2024 8:40 AM [facility] IONIZED CALCIUM, ARTERIAL 1.17 1.15 - 1.33 mmol/L 06/14/2024 8:40 AM [facility] Glucose, Arterial 121 65 - 199 mg/dL 06/14/2024 8:40 AM [facility] Comment:Glucose Concentratio n >=200 mg/dL plus symptoms is consistent with Diabetes Mellitus. Blood ARTERIAL BLOOD / Unknown 06/14/2024 8:39 AM EST 06/14/2024 8:40 AM EST Haja Byrnes MD POINT OF CARE TEST O RDERABLES Performing Organization Address City/State/[facility] Co de Phone Number [facility] [place] [address] * Transesophageal Echo/OR (06/14/2024 7:20 AM EST) Anatomical Region Laterality Modality Cardiac Other 06/14/2024 7:20 AM EST Narrative 06/14/2024 4:36 PM EST Version: 2 Study ID: [id number] [id number] ?OR Transesophageal Echo Report Name: GEORGE MEHTA [...] of this mass after consultation with other loss prevention auditor experts and the decision was made by [...] MD - 06/14/2024 Version: 2 Study ID: [id number] [address] [place] [id number] ORTransesophageal Echo Report Name: GEORGE MEHTA Study [...] of this mass after consultation with other loss prevention auditor experts and thedecision was made by surgeon [...] O RDERABLES [facility] [place] [address] * POC, GLUCOSE (06/14/2024 4:30 AM EST) [...] RDERABLES Performing Organization Address City/[facility]/ZIP Co de Phone Number [facility] [place] [address] * (ABNORMAL) Heparin (unfractionated) Level (06/14/2024 12:12 AM EST) UF Heparin 1.02([facility]) IU/mL 06/14/2024 12:46 AM EST [facility] [...] S Performing Organization Address City/[facility]/ZIP Co de Phone Number [facility] [place] [address] * (ABNORMAL) CBC (with Diff) (06/14/2024 12:12 AM EST) White Blood Cell 10.51(H) 4.00 - 9.50 x10(3)/mc L 06/14/2024 12:38 AM [facility] Red Blood Cell 4.99 4.58 - 5.54 x10(6)/mc L 06/14/2024 12:38 AM [facility] Hemoglobin 14.9 13.7 - 16.5 g/dL 06/14/2024 12:38 AM [facility] Hematocrit 45.9 40.5 - 48.5 [...] 6.10 x10(3)/mc L 06/14/2024 12:38 AM EST [facility] Lymph % 26.8 % 06/14/2024 12:38 AM [facility] Lymph Absolute 2.82 0.90 - 3.20 x10(3)/mc L 06/14/2024 12:38 AM [facility] Monocyte % 11.2 % 06/14/2024 12:38 AM [facility] Monocyte Absolute 1.18(H) 0.30 - 0.90 x10(3)/mc L 06/14/2024 12:38 AM [facility] Eos % 3.9 % 06/14/2024 12:38 AM [facility] Eos Absolute 0.41(H) 0.00 - 0.40 x10(3)/mc L 06/14/2024 12:38 AM [facility] Basophil % 0.8 % 06/14/2024 12:38 AM [facility] Baso Absolute 0.08 0.00 - 0.10 x10(3)/mc L 06/14/2024 12:38 AM [facility] Immature Gran % 0.6 % 12:38 AM [facility] Immature Gran Absolute 0.06(H) 0.00 - 0.04 x10(3)/mc L 06/14/2024 12:38 AM [facility] Blood VENOUS BLOOD SPECIMEN / Unknown Venipuncture / Unknown 06/14/2024 12:12 AM EST 06/14/2024 12:29 AM EST Shahnaz Scanlon MD HEMATOLOGY ORDERABLE S [facility] [place] [address] * Magnesium (06/14/2024 12:12 AM EST) Magnesium 0.74 0.69 - 1.07 mMol/L 06/14/2024 12:57 AM [facility] Blood VENOUS BLOOD SPECIMEN / Unknown Venipuncture / Unknown 06/14/2024 12:12 AM EST 06/14/2024 12:29 AM EST Shahnaz Scanlon MD CHEMISTRY ORDERABLES [facility] [place] [address] * (ABNORMAL) Basic Metabolic Panel (06/14/2024 12:12 [...] Scanlon MD CHEMISTRY ORDERABLES Performing Organization Address [facility]/ZIP Co de Phone Number [facility] [place] [address] * Scan Doc: Implantable Devices (06/14/2024 12:00 [...] RDERABLES Performing Organization Address City/[facility]/ZIP Co de Phone Number [facility] [place] [address] * (ABNORMAL) POC, GLUCOSE (06/13/2024 8:03 PM [...] RDERABLES Performing Organization Address City/[facility]/ZIP Co de Phone Number [facility] [place] [address] * Heparin (unfractionated) Level (06/13/2024 4:11 PM [...] ORDERABLE S [facility] [place] [address] * ABORH RECHECK (06/13/2024 4:11 PM EST) ABORH Recheck O POSITIVE 06/13/2024 4:50 PM EST [facility] Blood VENOUS BLOOD SPECIMEN / Unknown Venipuncture / Unknown 06/13/2024 4:11 PM EST 06/13/2024 4:19 PM EST Haja Byrnes MD BLOOD BANK LAB ORDER EUSEBIA [facility] [place] [address] * (ABNORMAL) POC, GLUCOSE (06/13/2024 4:09 PM EST) [facility] Glucometer, POC 216(H) 65 - 199 mg/dL 06/13/2024 4:10 PM EST [facility] Comment:Supplemental ranges: <140 mg/dL before meals <180 mg/dL all other times of the day. Blood CAPILLARY BLOOD / Unknown 06/13/2024 4:09 PM EST 06/13/2024 4:10 PM EST Haja Byrnes MD POINT OF CARE TEST O RDERABLES [facility] [place] [address] * Type and screen ([employer] [facility] [employer]/CGP/RAFITA) (06/13/2024 11:53 AM EST) ABORH Type O POSITIVE 06/13/2024 1:16 PM EST [facility] PATIENT HISTORY Not Found 06/13/2024 1:16 PM EST [facility] Expires at [id number] on: 06/16/2024 06/13/2024 1:16 PM EST [facility] ANTIBODY SCREEN AUTOMATED Negative 06/13/2024 1:16 PM EST [facility] T&S only valid at [facility] 06/13/2024 1:16 PM EST [facility] Blood VENOUS BLOOD SPECIMEN / Unknown Venipuncture / Unknown 06/13/2024 11:53 AM EST 06/13/2024 11:56 AM EST Narrative [facility] - 06/13/2024 1:16 PM EST This Type and Screen result is only valid at the [facility] Haja Byrnes MD BLOOD BANK LAB ORDER EUSEBIA Performing Organization Address [facility] Co de Phone Number [facility] [place] [address] * POC, GLUCOSE (06/13/2024 11:50 AM EST) Glucometer, POC 178 65 - 199 mg/dL 06/13/2024 11:51 AM EST [facility] Comment:Supplemental ranges: <140 mg/dL before meals <180 mg/dL all other times of the day. Blood CAPILLARY BLOOD / Unknown 06/13/2024 11:50 AM EST 06/13/2024 11:51 AM EST Haja Byrnes MD POINT OF CARE TEST O RDERABLES Performing Organization Address [facility] de Phone Number [facility] [place] [address] * XR Chest One View (06/13/2024 10:35 AM EST) WORKSTATION ID [id number] [facility] Anatomical Region Laterality Modality Chest [...] who have questions please contact the health director of health care marketing that requested your imaging first. ? Electronically signed by: Jyothi Simon MD, [facility] ([phone]), at 06/13/2024 10:43 AM Narrative 06/13/2024 10:43 [...] patients who have questions please contactthe health director of health care marketing that requested your imaging first. Electronically signed by: Jyothi Simon MD, [facility]([phone]), at 06/13/2024 10:43 AM Haja Byrnes MD IMG DX ORDERABLES * CARDIAC CATHETERIZATION (06/13/2024 9:02 AM EST) Anatomical Region Laterality Modality Other Narrative 06/15/2024 9:07 AM EST ?[facility] ? Cardiac Catheterization/Intervention Report ? Patient Name: Tyson, George L. ? Procedure Date: 06/13/2024 ? A #: [id number] ? Primary Physician: Nuha Shen I ? Case #: [id number] ? File Name: [id number] ? Catheterization Order Number: [id number] ? [facility] ? Final Report [place], [place] ? Patient Name: ? George LViry Mehta ? ID#: ?[id number] ? : ?1955 ? Procedure Date: ? June 13, 2024 ?Case #: ? [id number] ? Room: ? 6 ? Case Physician: [...] ?was designated as ASA Class IV. The [facility] clinical frailty scale is [...] procedure was Urgent. The indication for ?the supervisor cytogenetic laboratory visit is ACS greater than 24 hrs [...] angiography, vascular ?ultrasound and IABP insertion in supervisor cytogenetic laboratory. ? Nuha Shen M.D. ? Electronically Signed by: Nuha Shen M.D. ? Report Finalized: 06/15/2024 ??08:59 ? Procedure Note Nuha Shen MD - 06/15/2024 [facility] Cardiac Catheterization/Intervention Report Patient Name: George MehtaViry Procedure Date: 06/13/2024 A #: [id number] Primary Physician: Nuha Shen I Case #: [id number] File Name: [id number] Catheterization Order Number: [id number] [facility] FinalReport [place], [place] Patient Name: George Mehta ID#:[id number] :1955 Procedure Date: June 13, 2024 Case [...] was designated as ASA Class IV. The [facility] clinical frailty scale is5: [...] diagnostic procedure was Urgent. The indicationfor the supervisor cytogenetic laboratory visit is ACS greater than 24 hrs [...] site angiography,vascular ultrasound and IABP insertion in supervisor cytogenetic laboratory. Nuha Shen M.D. Electronically Signed by: Nuha [...] CHEMISTRY ORDERABLES [facility] [place] [address] * POC, GLUCOSE (06/13/2024 7:41 AM EST) Glucometer, POC 126 65 - 199 mg/dL 06/13/2024 7:41 AM EST [facility] Comment:Supplemental ranges: <140 mg/dL before meals <180 mg/dL all other times of the day. Blood CAPILLARY BLOOD / Unknown 06/13/2024 7:41 AM EST 06/13/2024 7:41 AM EST Ethel Carrillo MD POINT OF CARE TEST O NIKA Performing Organization Address [facility]/ZIP Co de Phone Number [facility] [place] [address] * POC, GLUCOSE (06/13/2024 3:25 AM EST) [...] MAHER Performing Organization Address City/[facility]/ZIP Co de Phone Number [facility] [place] [address] * Heparin (unfractionated) Level (06/13/2024 2:26 AM [...] City/State/[facility] Co de Phone Number [facility] [place] [address] * (ABNORMAL) CBC (with Diff) (06/13/2024 2:26 AM EST) White Blood Cell 9.98(H) 4.00 - 9.50 x10(3)/mc L 06/13/2024 2:41 AM EST [facility] Red Blood Cell 5.11 4.58 - 5.54 x10(6)/mc L 06/13/2024 2:41 AM EST [facility] Hemoglobin 15.3 [...] - 35.7 g/dL 06/13/2024 2:41 AM EST [facility] Platelet 194 145 - 357 [...] 0.10 x10(3)/mc L 06/13/2024 2:41 AM EST [facility] Immature Gran % 0.5 % 2:41 AM [facility] Immature Gran Absolute 0.05(H) 0.00 - 0.04 x10(3)/mc L 06/13/2024 2:41 AM EST [facility] Blood VENOUS BLOOD SPECIMEN / Unknown Venipuncture / Unknown 06/13/2024 2:26 AM EST 06/13/2024 2:32 AM EST Shahnaz Scanlon MD HEMATOLOGY ORDERABLE S [facility] [place] [address] * Magnesium (06/13/2024 2:26 AM EST) Magnesium 0.78 0.69 - 1.07 mMol/L 06/13/2024 2:58 AM [facility] Blood VENOUS BLOOD SPECIMEN / Unknown Venipuncture / Unknown 06/13/2024 2:26 AM EST 06/13/2024 2:31 AM EST Shahnaz Scanlon MD CHEMISTRY ORDERABLES [facility] [place] [address] * (ABNORMAL) Basic Metabolic Panel (06/13/2024 2:26 AM EST) Glucose 121 65 - 199 mg/dL 06/13/2024 2:58 AM EST [facility] Comment:Glucose Concentratio n >=200 mg/dL plus symptoms is consistent with Diabetes Mellitus. Blood Urea Nitrogen 21(H) 10 - 20 mg/dL 06/13/2024 2:58 AM EST [facility] Creatinine 1.07 0.80 - 1.50 [...] 5 - 15 mMol/L 06/13/2024 2:58 AM [facility] Calcium 9.7 8.5 - 10.5 mg/dL 06/13/2024 2:58 AM [facility] Est Glomerular Filtration Rate - Male 76 mL/min/1. 73 m?? 06/13/2024 2:58 AM [facility] [...] CHEMISTRY ORDERABLES [facility] [place] [address] * POC, GLUCOSE (06/12/2024 11:53 PM EST) [facility] Signature Glucometer, POC 141 65 - 199 mg/dL 06/12/2024 11:54 PM EST [facility] Comment:Supplemental ranges: <140 mg/dL before meals <180 mg/dL all other times of the day. Blood CAPILLARY BLOOD / Unknown 06/12/2024 11:53 PM EST 06/12/2024 11:54 PM EST Ethel Carrillo MD POINT OF CARE TEST O NIKA Performing Organization Address City/[facility]/ZIP Co de Phone Number [facility] [place] [address] * POC, GLUCOSE (06/12/2024 7:32 PM EST) Glucometer, POC 158 65 - 199 mg/dL 06/12/2024 7:32 PM EST [facility] Comment:Supplemental ranges: <140 mg/dL before meals <180 mg/dL all other times of the day. Blood CAPILLARY BLOOD / Unknown 06/12/2024 7:32 PM EST 06/12/2024 7:32 PM EST Ethel Carrillo MD POINT OF CARE TEST O NIKA Performing Organization Address [facility] Co de Phone Number [facility] [place] [address] * POC, GLUCOSE (06/12/2024 3:41 PM EST) [...] NIKA Performing Organization Address City/[facility] Co de Phone Number [facility] [place] [address] * Potassium (06/12/2024 2:19 PM EST) Potassium 4.5 3.5 - 5.0 mMol/L 06/12/2024 2:45 PM EST [facility] Blood VENOUS BLOOD SPECIMEN / Unknown Venipuncture / Unknown 06/12/2024 2:19 PM EST 06/12/2024 2:23 PM EST Shahnaz Scanlon MD CHEMISTRY ORDERABLES [facility] [place] [address] * (ABNORMAL) POC, GLUCOSE (06/12/2024 11:21 AM [...] O RDERABLES [facility] [place] [address] * POC, GLUCOSE (06/12/2024 8:00 AM EST) [...] O RDERABLES [facility] [place] [address] * POC, GLUCOSE (06/12/2024 4:25 AM EST) Pathologist [facility] Glucometer, POC 132 65 - 199 mg/dL 06/12/2024 4:26 AM EST [facility] Comment:Supplemental ranges: <140 mg/dL before meals <180 mg/dL all other times of the day. Blood CAPILLARY BLOOD / Unknown 06/12/2024 4:25 AM EST 06/12/2024 4:26 AM EST Ethel Carrillo MD POINT OF CARE TEST O RDERABLES Performing Organization Address [facility] Co de Phone Number [facility] [place] [address] * Heparin (unfractionated) Level (06/12/2024 3:03 AM EST) [facility] UF Heparin 0.55 IU/mL 06/12/2024 3:44 [...] MD HEMATOLOGY ORDERABLE S Performing Organization Address [facility] Co de Phone Number [facility] [place] [address] * (ABNORMAL) CBC (with Diff) (06/12/2024 3:03 AM EST) [facility] White Blood Cell 9.69(H) 4.00 - 9.50 x10(3)/mc L 06/12/2024 3:36 AM [facility] Red Blood Cell 5.05 4.58 - 5.54 x10(6)/mc L 06/12/2024 3:36 AM [facility] Hemoglobin 15.2 13.7 - 16.5 [...] Monocyte % 11.1 % 06/12/2024 3:36 AM [facility] Monocyte Absolute 1.08(H) 0.30 - 0.90 x10(3)/mc L 06/12/2024 3:36 AM [facility] Eos % 4.1 % 06/12/2024 3:36 AM [facility] Eos Absolute 0.40 0.00 - 0.40 x10(3)/mc L 06/12/2024 3:36 AM [facility] Basophil % 0.8 % 06/12/2024 [...] ORDERABLE S [facility] [place] [address] * Magnesium (06/12/2024 3:03 AM EST) Magnesium 0.79 0.69 - 1.07 mMol/L 06/12/2024 4:01 AM [facility] Blood VENOUS BLOOD SPECIMEN / Unknown Venipuncture / Unknown 06/12/2024 3:03 AM EST 06/12/2024 3:30 AM EST Shahnaz Scanlon MD CHEMISTRY ORDERABLES [facility] [place] [address] * (ABNORMAL) Basic Metabolic Panel (06/12/2024 3:03 [...] Scanlon MD CHEMISTRY ORDERABLES Performing Organization Address [facility] Co de Phone Number [facility] [place] [place] [address] * POC, GLUCOSE (06/11/2024 11:56 PM EST) Glucometer, POC 135 65 - 199 mg/dL 06/11/2024 11:56 PM EST [facility] Comment:Supplemental ranges: <140 mg/dL before meals <180 mg/dL all other times of the day. Blood CAPILLARY BLOOD / Unknown 06/11/2024 11:56 PM EST 06/11/2024 11:56 PM EST Ethel Carrillo MD POINT OF CARE TEST O RDERABLES Performing Organization Address [facility]/ZIP Co de Phone Number [facility] [place] [address] * (ABNORMAL) POC, GLUCOSE (06/11/2024 8:25 PM EST) Glucometer, POC 210(H) 65 - 199 mg/dL 06/11/2024 8:26 PM EST [facility] Comment:Supplemental ranges: <140 mg/dL before meals <180 mg/dL all other times of the day. Blood CAPILLARY BLOOD / Unknown 06/11/2024 8:25 PM EST 06/11/2024 8:26 PM EST Ethel Carrillo MD POINT OF CARE TEST O NIKA Performing Organization Address [facility] Co de Phone Number [facility] [place] [address] * POC, GLUCOSE (06/11/2024 4:24 PM EST) Glucometer, POC 81 65 - 199 mg/dL 06/11/2024 4:24 PM EST [facility] Comment:Supplemental ranges: <140 mg/dL before meals <180 mg/dL all other times of the day. Blood CAPILLARY BLOOD / Unknown 06/11/2024 4:24 PM EST 06/11/2024 4:25 PM EST Ethel Carrillo MD POINT OF CARE TEST O NIKA Performing Organization Address [facility] de Phone Number [facility] [place] [address] * (ABNORMAL) POC, GLUCOSE (06/11/2024 11:08 AM EST) Glucometer, POC 233(H) 65 - 199 mg/dL 06/11/2024 11:08 AM EST [facility] Comment:Supplemental ranges: <140 mg/dL before meals <180 mg/dL all other times of the day. Blood CAPILLARY BLOOD / Unknown 06/11/2024 11:08 AM EST 06/11/2024 11:08 AM EST Ethel Carrillo MD POINT OF CARE TEST O NIKA Performing Organization Address [facility] Co de Phone Number [facility] [place] [address] * POC, GLUCOSE (06/11/2024 7:48 AM EST) [...] RDERABLES Performing Organization Address City/[facility]/ZIP Co de Phone Number [facility] [place] [address] * Heparin (unfractionated) Level (06/11/2024 5:31 AM [...] ORDERABLE S [facility] [place] [address] * POC, GLUCOSE (06/11/2024 3:57 AM EST) Glucometer, POC 132 65 - 199 mg/dL 06/11/2024 3:58 AM [facility] Comment:Supplemental ranges: <140 mg/dL before meals <180 mg/dL all other times of the day. Blood CAPILLARY BLOOD / Unknown 06/11/2024 3:57 AM EST 06/11/2024 3:58 AM EST Melida Valdes MD POINT OF CARE TEST O RDERABLES [facility] [place] [address] * (ABNORMAL) CBC (with Diff) (06/11/2024 2:13 [...] Neutrophil % 50.3 % 06/11/2024 2:26 AM [facility] Neutrophil Absolute (ANC) - Automated [...] 0.04 x10(3)/mc L 06/11/2024 2:26 AM EST [facility] Blood VENOUS BLOOD SPECIMEN / Unknown Venipuncture / Unknown 06/11/2024 2:13 AM EST 06/11/2024 2:19 AM EST Shahnaz Scanlon MD HEMATOLOGY ORDERABLE S Performing Organization Address City/[facility]/ZIP Co de Phone Number [facility] [place] [address] * Magnesium (06/11/2024 2:13 AM EST) Magnesium 0.83 0.69 - 1.07 mMol/L 06/11/2024 2:51 AM [facility] Blood VENOUS BLOOD SPECIMEN / Unknown Venipuncture / Unknown 06/11/2024 2:13 AM EST 06/11/2024 2:19 AM EST Shahnaz Scanlon MD CHEMISTRY ORDERABLES [facility] [place] [address] * (ABNORMAL) Basic Metabolic Panel (06/11/2024 2:13 AM EST) Glucose 148 65 - 199 mg/dL 06/11/2024 2:51 AM [facility] Comment:Glucose Concentratio n >=200 mg/dL plus symptoms is consistent with Diabetes Mellitus. Blood Urea Nitrogen 24(H) 10 - 20 mg/dL 06/11/2024 2:51 AM EST [facility] Creatinine 1.06 0.80 - 1.50 mg/dL 06/11/2024 2:51 AM [facility] Sodium 134(L) 135 - 145 mMol/L 06/11/2024 2:51 AM [facility] Potassium 4.1 3.5 - 5.0 mMol/L 06/11/2024 2:51 AM [facility] Chloride 96(L) 98 - 107 mMol/L 06/11/2024 2:51 AM EST [facility] Carbon Dioxide 28 22 - [...] 77 mL/min/1. 73 m?? 06/11/2024 2:51 AM [facility] [...] CHEMISTRY ORDERABLES [facility] [place] [address] * POC, GLUCOSE (06/11/2024 12:50 AM EST) [...] O NIKA [facility] [place] [address] * (ABNORMAL) POC, GLUCOSE (06/10/2024 7:22 PM EST) Glucometer, POC 236(H) 65 - 199 mg/dL 06/10/2024 7:22 PM EST [facility] Comment:Supplemental ranges: <140 mg/dL before meals <180 mg/dL all other times of the day. Blood CAPILLARY BLOOD / Unknown 06/10/2024 7:22 PM EST 06/10/2024 7:22 PM EST Melida Valdes MD POINT OF CARE TEST Abimael MAHER Performing Organization Address [facility]/ZIP Co de Phone Number [facility] [place] [address] * (ABNORMAL) Blood Gas, Venous (06/10/2024 5:42 PM EST) pH, Venous 7.34 7.32 - 7.42 06/10/2024 5:50 PM EST [facility] PCO2, Venous 52 38 - 58 mmHg 06/10/2024 5:50 PM [facility] PO2, Venous 24 16 - 65 mmHg 06/10/2024 5:50 PM [facility] Bicarbonate, Venous 27.4 22 - 31 mmol/L 06/10/2024 5:50 PM [facility] Base Excess, Venous 1.7(L) 1.9 - 4.5 mmol/L 06/10/2024 5:50 PM [facility] Hemoglobin, Venous 16.8(H) 13.7 - 16.5 g/dL 06/10/2024 5:50 PM [facility] Oxyhemoglobin, Venous 39.0 % 06/10/2024 5:50 PM [facility] Carboxyhemoglobin , Venous 0.3 % 06/10/2024 5:50 PM [facility] Comment: Nonsmokers: 0.5-1.5% COHB ?? Smokers: Variable ??but usually less than 10% ?? Toxic: 20-30% COHB ?? Lethal: Greater than 60% COHB Methemoglobin, Venous 0.5 <=1.5 % 06/10/2024 5:50 PM [facility] Sodium, Venous 137 135 - 145 mmol/L 06/10/2024 5:50 PM [facility] Chloride, Venous 96(L) 98 - [...] CHEMISTRY ORDERABLES [facility] [place] [address] * POC, GLUCOSE (06/10/2024 5:35 PM EST) [facility] Glucometer, POC 123 65 - 199 mg/dL 06/10/2024 5:35 PM [facility] Comment:Supplemental ranges: <140 mg/dL before meals <180 mg/dL all other times of the day. Blood CAPILLARY BLOOD / Unknown 06/10/2024 5:35 PM EST 06/10/2024 5:35 PM EST Melida Valdes MD POINT OF CARE TEST O NIKA Performing Organization Address City/[facility]/ZIP Co de Phone Number [facility] [place] [address] * (ABNORMAL) POC, GLUCOSE (06/10/2024 11:25 AM EST) Glucometer, POC 216(H) 65 - 199 mg/dL 06/10/2024 11:25 AM EST [facility] Comment:Supplemental ranges: <140 mg/dL before meals <180 mg/dL all other times of the day. Blood CAPILLARY BLOOD / Unknown 06/10/2024 11:25 AM EST 06/10/2024 11:25 AM EST Melida Valdes MD POINT OF CARE TEST O NIKA Performing Organization Address [facility] Co de Phone Number [facility] [place] [address] * (ABNORMAL) POC, GLUCOSE (06/10/2024 7:46 AM [...] NIKA Performing Organization Address City/[facility] Co de Phone Number [facility] [place] [address] * POC, GLUCOSE (06/10/2024 4:23 AM EST) Glucometer, POC 154 65 - 199 mg/dL 06/10/2024 4:24 AM [facility] Comment:Supplemental ranges: <140 mg/dL before meals <180 mg/dL all other times of the day. Blood CAPILLARY BLOOD / Unknown 06/10/2024 4:23 AM EST 06/10/2024 4:24 AM EST Melida Valdes MD POINT OF CARE TEST O RDERABLES Performing Organization Address City/State/[facility] Co de Phone Number [facility] [place] [address] * (ABNORMAL) CBC (with Diff) (06/10/2024 1:55 [...] 0.04 x10(3)/mc L 06/10/2024 2:14 AM EST [facility] Blood VENOUS BLOOD SPECIMEN / Unknown Venipuncture / Unknown 06/10/2024 1:55 AM EST 06/10/2024 2:05 AM EST Shahnaz Scanlon MD HEMATOLOGY ORDERABLE S Performing Organization Address City/[facility]/ZIP Co de Phone Number [facility] [place] [address] * Magnesium (06/10/2024 1:55 AM EST) Magnesium 0.83 0.69 - 1.07 mMol/L 06/10/2024 2:37 AM [facility] Blood VENOUS BLOOD SPECIMEN / Unknown Venipuncture / Unknown 06/10/2024 1:55 AM EST 06/10/2024 2:05 AM EST Shahnaz Scanlon MD CHEMISTRY ORDERABLES [facility] [place] [address] * (ABNORMAL) Basic Metabolic Panel (06/10/2024 1:55 [...] City/State/[facility] Co de Phone Number [facility] [place] [address] * Heparin (unfractionated) Level (06/10/2024 1:54 AM EST) UF Heparin 0.56 IU/mL 06/10/2024 2:41 AM [facility] Comment: Heparin (anti-Xa) levels should [...] S Performing Organization Address City/[facility]/ZIP Co de Phone Number [facility] [address] * POC, GLUCOSE (06/10/2024 12:05 AM EST) [...] RDERABLES Performing Organization Address City/[facility]/ZIP Co de Phone Number [facility] [place] [address] * POC, GLUCOSE (06/09/2024 8:36 PM EST) Glucometer, POC 197 65 - 199 mg/dL 06/09/2024 8:36 PM EST [facility] Comment:Supplemental ranges: <140 mg/dL before meals <180 mg/dL all other times of the day. Blood CAPILLARY BLOOD / Unknown 06/09/2024 8:36 PM EST 06/09/2024 8:36 PM EST Melida Valdes MD POINT OF CARE TEST O NIKA Performing Organization Address [facility] Co de Phone Number [facility] [place] [address] * POC, GLUCOSE (06/09/2024 5:27 PM EST) Glucometer, POC 174 65 - 199 mg/dL 06/09/2024 5:28 PM EST [facility] Comment:Supplemental ranges: <140 mg/dL before meals <180 mg/dL all other times of the day. Blood CAPILLARY BLOOD / Unknown 06/09/2024 5:27 PM EST 06/09/2024 5:28 PM EST Melida Valdes MD POINT OF CARE TEST O NIKA Performing Organization Address [facility] Co de Phone Number [facility] [place] [address] * (ABNORMAL) POC, GLUCOSE (06/09/2024 11:52 AM [...] NIKA Performing Organization Address City/[facility] Co de Phone Number [facility] [place] [address] * Potassium (06/09/2024 8:25 AM EST) Potassium 4.6 3.5 - 5.0 mMol/L 06/09/2024 10:09 AM EST [facility] Blood VENOUS BLOOD SPECIMEN / Unknown Venipuncture / Unknown 06/09/2024 8:25 AM EST 06/09/2024 8:42 AM EST Shahnaz Scanlon MD CHEMISTRY ORDERABLES Performing Organization Address [facility] Co de Phone Number [facility] [place] [address] * (ABNORMAL) POC, GLUCOSE (06/09/2024 8:10 AM EST) Glucometer, POC 209(H) 65 - 199 mg/dL 06/09/2024 8:10 AM EST [facility] Comment:Supplemental ranges: <140 mg/dL before meals <180 mg/dL all other times of the day. Blood CAPILLARY BLOOD / Unknown 06/09/2024 8:10 AM EST 06/09/2024 8:11 AM EST Melida Valdes MD POINT OF CARE TEST O RDERABLES Performing Organization Address [facility] Co de Phone Number [facility] [place] [address] * POC, GLUCOSE (06/09/2024 4:40 AM EST) Glucometer, POC 131 65 - 199 mg/dL 06/09/2024 4:40 AM EST [facility] Comment:Supplemental ranges: <140 mg/dL before meals <180 mg/dL all other times of the day. Blood CAPILLARY BLOOD / Unknown 06/09/2024 4:40 AM EST 06/09/2024 4:41 AM EST Melida Valdes MD POINT OF CARE TEST O NIKA Performing Organization Address [facility] Co de Phone Number [facility] [place] [address] * Heparin (unfractionated) Level (06/09/2024 2:12 AM [...] City/State/[facility] Co de Phone Number [facility] [place] [address] * (ABNORMAL) CBC (with Diff) (06/09/2024 2:12 AM EST) White Blood Cell 9.80(H) 4.00 - 9.50 x10(3)/mc L 06/09/2024 2:44 AM EST [facility] Red Blood Cell 5.18 4.58 - 5.54 x10(6)/mc L 06/09/2024 2:44 AM EST [facility] Hemoglobin 15.5 13.7 - 16.5 g/dL 06/09/2024 2:44 AM EST [facility] Hematocrit 47.4 40.5 - 48.5 % 06/09/2024 2:44 AM [facility] Mean Cell Volume 91.5 82.9 - 93.1 fL 06/09/2024 2:44 AM EST [facility] Mean Cell Hemoglobin 29.9 27.5 [...] % 0.9 % 06/09/2024 2:44 AM EST [facility] Baso Absolute 0.09 0.00 - 0.10 x10(3)/mc L 06/09/2024 2:44 AM EST [facility] [...] S Performing Organization Address City/[facility]/ZIP Co de Phone Number [facility] [place] [address] * Magnesium (06/09/2024 2:12 AM EST) Magnesium 0.83 0.69 - 1.07 mMol/L 06/09/2024 2:52 AM [facility] Blood VENOUS BLOOD SPECIMEN / Unknown Venipuncture / Unknown 06/09/2024 2:12 AM EST 06/09/2024 2:22 AM EST Shahnaz Scanlon MD CHEMISTRY ORDERABLES Performing Organization Address City/[facility]/ZIP Co de Phone Number [facility] [place] [address] * (ABNORMAL) Basic Metabolic Panel (06/09/2024 2:12 AM EST) Glucose 147 65 - 199 mg/dL 06/09/2024 2:52 AM [facility] Comment:Glucose Concentratio n >=200 mg/dL plus symptoms is consistent with Diabetes Mellitus. Blood Urea Nitrogen 24(H) 10 - 20 mg/dL 06/09/2024 2:52 AM EST [facility] Creatinine 1.11 0.80 - 1.50 mg/dL 06/09/2024 2:52 AM EST [facility] Sodium 136 135 - 145 mMol/L 06/09/2024 2:52 AM EST [facility] Potassium 3.9 3.5 - 5.0 mMol/L 06/09/2024 2:52 AM EST [facility] Chloride 98 98 - 107 mMol/L 06/09/2024 2:52 AM EST [facility] Carbon Dioxide 27 22 - 31 mMol/L 06/09/2024 2:52 AM EST [facility] Anion Gap 11 5 - 15 mMol/L 06/09/2024 2:52 AM EST [facility] Calcium 9.7 8.5 - 10.5 mg/dL 06/09/2024 2:52 AM EST [facility] Est Glomerular Filtration Rate - Male 73 mL/min/1. 73 m?? 06/09/2024 2:52 AM EST [facility] [...] CHEMISTRY ORDERABLES [facility] [place] [address] * POC, GLUCOSE (06/09/2024 12:34 AM EST) [...] NIKA Performing Organization Address City/[facility]/ZIP Co de Phone Number [facility] [place] [address] * POC, GLUCOSE (06/08/2024 8:27 PM EST) Glucometer, POC 176 65 - 199 mg/dL 06/08/2024 8:28 PM EST [facility] Comment:Supplemental ranges: <140 mg/dL before meals <180 mg/dL all other times of the day. Blood CAPILLARY BLOOD / Unknown 06/08/2024 8:27 PM EST 06/08/2024 8:28 PM EST Melida Valdes MD POINT OF CARE TEST O NIKA Performing Organization Address [facility] Co de Phone Number [facility] [place] [address] * POC, GLUCOSE (06/08/2024 4:16 PM EST) [...] NIKA Performing Organization Address City/[facility]/ZIP Co de Phone Number [facility] [place] [address] * (ABNORMAL) POC, GLUCOSE (06/08/2024 12:35 PM [...] RDBECKIE Performing Organization Address City/[facility]/ZIP Co de Phone Number [facility] [address] * POC, GLUCOSE (06/08/2024 8:10 AM EST) [...] O RDERAPIETER [facility] [place] [address] * POC, GLUCOSE (06/08/2024 4:09 AM EST) Glucometer, POC 151 65 - 199 mg/dL 06/08/2024 4:10 AM EST [facility] Comment:Supplemental ranges: <140 mg/dL before meals <180 mg/dL all other times of the day. Blood CAPILLARY BLOOD / Unknown 06/08/2024 4:09 AM EST 06/08/2024 4:10 AM EST Melida Valdes MD POINT OF CARE TEST O RDERABLES Performing Organization Address [facility]/ZIP Co de Phone Number [facility] [place] [address] * Heparin (unfractionated) Level (06/08/2024 3:21 AM [...] S Performing Organization Address City/[facility]/ZIP Co de Phone Number [facility] [place] [address] * (ABNORMAL) CBC (with Diff) (06/08/2024 3:21 [...] Basophil % 0.8 % 06/08/2024 3:34 AM [facility] Baso Absolute 0.08 0.00 - 0.10 x10(3)/mc L 06/08/2024 3:34 AM [facility] Immature Gran % 0.5 % 3:34 AM [facility] Immature Gran Absolute 0.05(H) 0.00 - 0.04 x10(3)/mc L 06/08/2024 3:34 AM [facility] Blood VENOUS BLOOD SPECIMEN / Unknown Venipuncture / Unknown 06/08/2024 3:21 AM EST 06/08/2024 3:27 AM EST Shahnaz Scanlon MD [place] [address] * Magnesium (06/08/2024 3:21 AM EST) Magnesium 0.84 0.69 - 1.07 mMol/L 06/08/2024 3:59 AM [facility] Blood VENOUS BLOOD SPECIMEN / Unknown Venipuncture / Unknown 06/08/2024 3:21 AM EST 06/08/2024 3:27 AM EST Shahnaz Scanlon MD CHEMISTRY ORDERABLES [facility] [place] [address] * (ABNORMAL) Basic Metabolic Panel (06/08/2024 3:21 [...] 0.80 - 1.50 mg/dL 06/08/2024 3:59 AM [facility] [...] 74 mL/min/1. 73 m?? 06/08/2024 3:59 AM [facility] [...] Scanlon MD CHEMISTRY ORDERABLES Performing Organization Address [facility]/ZIP Co de Phone Number [facility] [place] [address] * POC, GLUCOSE (06/07/2024 11:57 PM EST) Glucometer, POC 188 65 - 199 mg/dL 06/07/2024 11:57 PM EST [facility] Comment:Supplemental ranges: <140 mg/dL before meals <180 mg/dL all other times of the day. Blood CAPILLARY BLOOD / Unknown 06/07/2024 11:57 PM EST 06/07/2024 11:58 PM EST Melida Valdes MD POINT OF CARE TEST O NIKA Performing Organization Address [facility] Co de Phone Number [facility] [place] [address] * POC, GLUCOSE (06/07/2024 8:05 PM EST) [...] NIKA Performing Organization Address City/[facility]/ZIP Co de Phone Number [facility] [place] [address] * Potassium (06/07/2024 5:22 PM EST) Potassium 4.6 3.5 - 5.0 mMol/L 06/07/2024 5:59 PM EST [facility] Blood VENOUS BLOOD SPECIMEN / Unknown Venipuncture / Unknown 06/07/2024 5:22 PM EST 06/07/2024 5:26 PM EST Shahnaz Scanlon MD CHEMISTRY ORDERABLES Performing Organization Address [facility] Co de Phone Number [facility] [place] [address] * POC, GLUCOSE (06/07/2024 4:31 PM EST) Glucometer, POC 174 65 - 199 mg/dL 06/07/2024 4:34 PM EST [facility] Comment:Supplemental ranges: <140 mg/dL before meals <180 mg/dL all other times of the day. Blood CAPILLARY BLOOD / Unknown 06/07/2024 4:31 PM EST 06/07/2024 4:34 PM EST Melida Valdes MD POINT OF CARE TEST O RDERABLES Performing Organization Address [facility] Co de Phone Number [facility] [place] [address] * MRI Cardiac Morphology Function wwo Contrast (06/07/2024 1:10 PM EST) WORKSTATION ID [id number] DH RAD Anatomical Region Laterality Modality Magnetic [...] - Mildly dilated left ventricle size with ejqxsqgm-dd-ryeipyqf decreased LV systolic function. ??LV ejection fraction [...] who have questions please contact the health director of health care marketing that requested your imaging first. ? Electronically signed by: Kriss Alonzo MD, [facility] ([phone]), at 06/07/2024 2:41 PM Narrative 06/07/2024 2:41 [...] VENTRICLE: Mildly dilated left ventricle size with vofuqzob-yj-xqjczzlf decreased LV systolic function. ??LV ejection fraction [...] VENTRICLE: Mildly dilated left ventricle size with llrpociw-bh-jwkgpxlm decreasedLV systolic function. LV ejection fraction is [...] - Mildly dilated left ventricle size with wrfaxefh-fq-wrlofqdr decreasedLV systolic function. LV ejection fraction is [...] patients who have questions please contactthe health director of health care marketing that requested your imaging first. Delroy Fofana [...] NIKA Performing Organization Address City/[facility] Co de Phone Number [facility] [place] [address] * (ABNORMAL) POC, GLUCOSE (06/07/2024 11:03 AM EST) [facility] Signature Glucometer, POC 250(H) 65 - 199 mg/dL 06/07/2024 11:04 AM EST [facility] Comment:Supplemental ranges: <140 mg/dL before meals <180 mg/dL all other times of the day. Blood CAPILLARY BLOOD / Unknown 06/07/2024 11:03 AM EST 06/07/2024 11:04 AM EST Melida Valdes MD POINT OF CARE TEST O NIKA [facility] [place] [address] * Potassium (06/07/2024 9:44 AM EST) [facility] Signature Potassium 4.7 3.5 - 5.0 mMol/L 06/07/2024 10:23 AM EST [facility] Blood VENOUS BLOOD SPECIMEN / Unknown Venipuncture / Unknown 06/07/2024 9:44 AM EST 06/07/2024 9:57 AM EST Shahnaz Scanlon MD CHEMISTRY ORDERABLES Performing Organization Address [facility]/ZIP Co de Phone Number [facility] [place] [place] [address] * POC, GLUCOSE (06/07/2024 7:45 AM EST) Glucometer, POC 175 65 - 199 mg/dL 06/07/2024 7:45 AM EST [facility] Comment:Supplemental ranges: <140 mg/dL before meals <180 mg/dL all other times of the day. Blood CAPILLARY BLOOD / Unknown 06/07/2024 7:45 AM EST 06/07/2024 7:46 AM EST Melida Valdes MD POINT OF CARE TEST O RDERABLES Performing Organization Address [facility] Co de Phone Number [facility] [place] [address] * XR Chest PA & Lateral (Generic) (06/07/2024 7:03 AM EST) WORKSTATION ID [id number] RAD Anatomical Region Laterality Modality Chest N/A [...] who have questions please contact the health director of health care marketing that requested your imaging first. ? Electronically signed by: Stuart Aponte MD, [facility] ??([phone]), at 06/07/2024 10:45 AM Narrative 06/07/2024 10:45 [...] patients who have questions please contactthe health director of health care marketing that requested your imaging first. Electronically signed by: Stuart Aponte MD, [facility]([phone]), at 06/07/2024 10:45 AM Shahnaz Scanlon MD [...] CARE TEST O RDERABLES Performing Organization Address [facility] Co de Phone Number [facility] [place] [address] * Heparin (unfractionated) Level (06/07/2024 2:41 AM [...] S Performing Organization Address City/[facility]/ZIP Co de Phone Number [facility] [place] [address] * (ABNORMAL) CBC (with Diff) (06/07/2024 2:41 AM EST) [facility] White Blood Cell 10.06(H) 4.00 - 9.50 x10(3)/mc L 06/07/2024 2:58 AM [facility] Red Blood Cell 5.02 4.58 - 5.54 x10(6)/mc L 06/07/2024 2:58 AM [facility] Hemoglobin 14.8 13.7 - 16.5 [...] 0.40 x10(3)/mc L 06/07/2024 2:58 AM EST [facility] Basophil % 0.8 % 06/07/2024 [...] ORDERABLE S [facility] [place] [address] * Magnesium (06/07/2024 2:41 AM EST) Magnesium 0.92 0.69 - 1.07 mMol/L 06/07/2024 3:25 AM EST [facility] Blood VENOUS BLOOD SPECIMEN / Unknown Venipuncture / Unknown 06/07/2024 2:41 AM EST 06/07/2024 2:51 AM EST Shahnaz Scanlon MD CHEMISTRY ORDERABLES [facility] [place] [address] * (ABNORMAL) Basic Metabolic Panel (06/07/2024 2:41 [...] Scanlon MD CHEMISTRY ORDERABLES Performing Organization Address [facility] Co de Phone Number [facility] [place] [address] * POC, GLUCOSE (06/07/2024 12:08 AM EST) [...] RDERABLES Performing Organization Address City/[facility]/ZIP Co de Phone Number [facility] [place] [address] * POC, GLUCOSE (06/06/2024 8:18 PM EST) Glucometer, POC 143 65 - 199 mg/dL 06/06/2024 8:19 PM EST [facility] Comment:Supplemental ranges: <140 mg/dL before meals <180 mg/dL all other times of the day. Blood CAPILLARY BLOOD / Unknown 06/06/2024 8:18 PM EST 06/06/2024 8:19 PM EST Melida Valdes MD POINT OF CARE TEST O NIKA Performing Organization Address [facility] Co de Phone Number [facility] [place] [address] * POC, GLUCOSE (06/06/2024 3:39 PM EST) Glucometer, POC 147 65 - 199 mg/dL 06/06/2024 3:40 PM EST [facility] Comment:Supplemental ranges: <140 mg/dL before meals <180 mg/dL all other times of the day. Blood CAPILLARY BLOOD / Unknown 06/06/2024 3:39 PM EST 06/06/2024 3:40 PM EST Melida Valdes MD POINT OF CARE TEST Abimael MAHER Performing Organization Address [facility] de Phone Number [facility] [place] [address] * Potassium (06/06/2024 2:37 PM EST) Potassium 4.3 3.5 - 5.0 mMol/L 06/06/2024 3:01 PM EST [facility] Blood VENOUS BLOOD SPECIMEN / Unknown Venipuncture / Unknown 06/06/2024 2:37 PM EST 06/06/2024 2:42 PM EST Shahnaz Scanlon MD CHEMISTRY ORDERABLES Performing Organization Address [facility] Co de Phone Number [facility] [place] [address] * (ABNORMAL) POC, GLUCOSE (06/06/2024 1:39 PM [...] O NIKA [facility] [place] [address] * (ABNORMAL) POC, GLUCOSE (06/06/2024 11:34 AM [...] MAHER Performing Organization Address City/[facility]/ZIP Co de Phone Number [facility] [place] [address] * Potassium (06/06/2024 10:17 AM EST) Potassium 4.3 3.5 - 5.0 mMol/L 06/06/2024 10:46 AM EST [facility] Blood VENOUS BLOOD SPECIMEN / Unknown Venipuncture / Unknown 06/06/2024 10:17 AM EST 06/06/2024 10:22 AM EST Shahnaz Scanlon MD CHEMISTRY ORDERABLES [facility] [place] [address] * POC, GLUCOSE (06/06/2024 7:57 AM EST) Glucometer, POC 195 65 - 199 mg/dL 06/06/2024 8:03 AM EST [facility] Comment:Supplemental ranges: <140 mg/dL before meals <180 mg/dL all other times of the day. Blood CAPILLARY BLOOD / Unknown 06/06/2024 7:57 AM EST 06/06/2024 8:03 AM EST Melida Valdes MD POINT OF CARE TEST O NIKA Performing Organization Address [facility] Co de Phone Number [facility] [place] [address] * POC, GLUCOSE (06/06/2024 6:53 AM EST) Glucometer, POC 187 65 - 199 mg/dL 06/06/2024 6:53 AM EST [facility] Comment:Supplemental ranges: <140 mg/dL before meals <180 mg/dL all other times of the day. Blood CAPILLARY BLOOD / Unknown 06/06/2024 6:53 AM EST 06/06/2024 6:54 AM EST Melida Valdes MD POINT OF CARE TEST Abimael MAHER Performing Organization Address [facility] Co de Phone Number [facility] [place] [address] * (ABNORMAL) Hemoglobin A1c (06/06/2024 3:33 AM [...] red blood cell turnover may not be medical collections representative of glycemic control. Reference Interval: 4.3 - 5.6% 5.7 - 6.4%: Consistent with prediabetes >=6.5%: Consistent with diagnosis of diabetes mellitus Estimated Average Glucose 157 mg/dL 06/06/2024 1:01 PM EST [facility] Blood VENOUS BLOOD SPECIMEN / Unknown Venipuncture / Unknown 06/06/2024 3:33 AM EST 06/06/2024 3:48 AM EST Alejandra Baumann APRN CHEMISTRY ORDERAB LES Performing Organization Address [facility]/ZIP Co de Phone Number [facility] [place] [address] * Heparin (unfractionated) Level (06/06/2024 3:33 AM [...] S Performing Organization Address City/[facility]/ZIP Co de Phone Number [facility] [place] [address] * (ABNORMAL) CBC (with Diff) (06/06/2024 3:33 AM EST) White Blood Cell 9.81(H) 4.00 - 9.50 x10(3)/mc L 06/06/2024 3:54 AM [facility] Red Blood Cell 4.91 4.58 - 5.54 x10(6)/mc L 06/06/2024 3:54 AM [facility] Hemoglobin 14.6 13.7 - 16.5 g/dL 06/06/2024 3:54 AM [facility] Hematocrit 45.4 40.5 - 48.5 [...] - 0.90 x10(3)/mc L 06/06/2024 3:54 AM [facility] Eos % 3.0 % 06/06/2024 3:54 AM [facility] Eos Absolute 0.29 0.00 - 0.40 x10(3)/mc L 06/06/2024 3:54 AM [facility] Basophil % 0.9 % 06/06/2024 [...] ORDERABLE S [facility] [place] [address] * Magnesium (06/06/2024 3:33 AM EST) Magnesium 0.92 0.69 - 1.07 mMol/L 06/06/2024 4:17 AM [facility] Blood VENOUS BLOOD SPECIMEN / Unknown Venipuncture / Unknown 06/06/2024 3:33 AM EST 06/06/2024 3:47 AM EST Shahnaz Scanlon MD CHEMISTRY ORDERABLES [facility] [place] [address] * (ABNORMAL) Basic Metabolic Panel (06/06/2024 3:33 [...] Scanlon MD CHEMISTRY ORDERABLES Performing Organization Address [facility] Co de Phone Number [facility] [place] [address] * (ABNORMAL) POC, GLUCOSE (06/05/2024 10:31 PM [...] RDERABLES Performing Organization Address City/[facility]/ZIP Co de Phone Number [facility] [place] [address] * (ABNORMAL) POC, GLUCOSE (06/05/2024 4:22 PM [...] O RDERABLES [facility] [place] [address] * (ABNORMAL) POC, GLUCOSE (06/05/2024 11:34 AM [...] RDERABLES Performing Organization Address City/[facility]/ZIP Co de Phone Number [facility] [place] [address] * Potassium (06/05/2024 9:04 AM EDT) Potassium 4.3 3.5 - 5.0 mMol/L 06/05/2024 9:50 AM EDT [facility] Blood VENOUS BLOOD SPECIMEN / Unknown Venipuncture / Unknown 06/05/2024 9:04 AM EDT 06/05/2024 9:21 AM EDT Shahnaz Scanlon MD CHEMISTRY ORDERABLES [facility] [place] [address] * POC, GLUCOSE (06/05/2024 7:27 AM EDT) Glucometer, POC 166 65 - 199 mg/dL 06/05/2024 7:27 AM EDT [facility] Comment:Supplemental ranges: <140 mg/dL before meals <180 mg/dL all other times of the day. Blood CAPILLARY BLOOD / Unknown 06/05/2024 7:27 AM EDT 06/05/2024 7:27 AM EDT Melida Valdes MD POINT OF CARE TEST O RDERABLES Performing Organization Address [facility] Co de Phone Number [facility] [place] [address] * Heparin (unfractionated) Level (06/05/2024 3:44 AM [...] S Performing Organization Address City/[facility]/ZIP Co de Phone Number [facility] [place] [address] * (ABNORMAL) CBC (with Diff) (06/05/2024 3:44 AM EDT) White Blood Cell 10.83(H) 4.00 - 9.50 x10(3)/mc L 06/05/2024 3:56 AM EDT [facility] Red Blood Cell 5.07 4.58 - 5.54 x10(6)/mc L 06/05/2024 3:[address] [facility] Hemoglobin 15.3 13.7 - 16.5 g/dL 06/05/2024 3:[address] [facility] Hematocrit 46.8 40.5 - 48.5 % 06/05/2024 3:[address] [facility] Mean Cell Volume 92.3 82.9 - 93.1 fL 06/05/2024 3:[address] [facility] Mean Cell Hemoglobin 30.2 27.5 - 32.1 pg 06/05/2024 3:[address] [facility] Mean Cell Hemoglobin Concentration 32.7 32.0 - 35.7 g/dL 06/05/2024 3:[address] [facility] Platelet 219 145 - 357 [...] % 24.0 % 06/05/2024 3:56 AM EDT [facility] Lymph Absolute 2.60 0.90 - 3.20 x10(3)/mc L 06/05/2024 3:56 AM EDT [facility] Monocyte % 10.9 % 06/05/2024 3:56 AM EDT [facility] Monocyte Absolute 1.18(H) 0.30 - [...] ORDERABLE S [facility] [place] [address] * Magnesium (06/05/2024 3:44 AM EDT) Magnesium 0.92 0.69 - 1.07 mMol/L 06/05/2024 4:20 AM EDT [facility] Blood VENOUS BLOOD SPECIMEN / Unknown Venipuncture / Unknown 06/05/2024 3:44 AM EDT 06/05/2024 3:50 AM EDT Shahnaz Scanlon MD CHEMISTRY ORDERABLES [facility] [place] [address] * (ABNORMAL) Basic Metabolic Panel (06/05/2024 3:44 AM EDT) Glucose 155 65 - 199 mg/dL 06/05/2024 4:20 AM EDT [facility] Comment:Glucose Concentratio n >=200 mg/dL plus symptoms is consistent with Diabetes Mellitus. Blood Urea Nitrogen 25(H) 10 - 20 mg/dL 06/05/2024 4:[address] [facility] Creatinine 1.16 0.80 - 1.50 [...] Scanlon MD CHEMISTRY ORDERABLES Performing Organization Address [facility]/ZIP Co de Phone Number [facility] [place] [address] * Potassium (06/04/2024 10:34 PM EDT) Potassium 3.7 3.5 - 5.0 mMol/L 06/04/2024 11:03 PM EDT [facility] Blood VENOUS BLOOD SPECIMEN / Unknown Venipuncture / Unknown 06/04/2024 10:34 PM EDT 06/04/2024 10:39 PM EDT Shahnaz Scanlon MD CHEMISTRY ORDERABLES Performing Organization Address [facility] Co de Phone Number [facility] [place] [address] * POC, GLUCOSE (06/04/2024 7:43 PM EDT) [...] City/State/[facility] Co de Phone Number [facility] [place] [address] * Potassium (06/04/2024 4:35 PM EDT) Potassium 4.0 3.5 - 5.0 mMol/L 06/04/2024 5:32 PM EDT [facility] Blood VENOUS BLOOD SPECIMEN / Unknown Venipuncture / Unknown 06/04/2024 4:35 PM EDT 06/04/2024 4:40 PM EDT Shahnaz Scanlon MD CHEMISTRY ORDERABLES Performing Organization Address [facility] Co de Phone Number [facility] [place] [address] * POC, GLUCOSE (06/04/2024 3:26 PM EDT) Glucometer, POC 154 65 - 199 mg/dL 06/04/2024 3:26 PM EDT [facility] Comment:Supplemental ranges: <140 mg/dL before meals <180 mg/dL all other times of the day. Blood CAPILLARY BLOOD / Unknown 06/04/2024 3:26 PM EDT 06/04/2024 3:27 PM EDT Melida Valdes MD POINT OF CARE TEST O RDERABLES Performing Organization Address [facility] Co de Phone Number [facility] [place] [address] * POC, GLUCOSE (06/04/2024 11:09 AM EDT) Glucometer, POC 188 65 - 199 mg/dL 06/04/2024 11:09 AM EDT [facility] Comment:Supplemental ranges: <140 mg/dL before meals <180 mg/dL all other times of the day. Blood CAPILLARY BLOOD / Unknown 06/04/2024 11:09 AM EDT 06/04/2024 11:09 AM EDT Delroy Fofana MD POINT OF CARE TEST ORDERABLES Performing Organization Address [facility] Co de Phone Number [facility] [place] [address] * Heparin (unfractionated) Level (06/04/2024 10:41 AM [...] ORDERABLE S [facility] [place] [address] * Potassium (06/04/2024 10:41 AM EDT) Potassium 4.0 3.5 - 5.0 mMol/L 06/04/2024 11:11 AM EDT [facility] Blood VENOUS BLOOD SPECIMEN / Unknown Venipuncture / Unknown 06/04/2024 10:41 AM EDT 06/04/2024 10:46 AM EDT Shahnaz Scanlon MD CHEMISTRY ORDERABLES Performing Organization Address City/[facility]/ZIP Co de Phone Number [facility] [place] [address] * POC, GLUCOSE (06/04/2024 7:11 AM EDT) Glucometer, POC 182 65 - 199 mg/dL 06/04/2024 7:12 AM EDT [facility] Comment:Supplemental ranges: <140 mg/dL before meals <180 mg/dL all other times of the day. Blood CAPILLARY BLOOD / Unknown 06/04/2024 7:11 AM EDT 06/04/2024 7:12 AM EDT Delroy Fofana MD POINT OF CARE TEST ORDERABLES Performing Organization Address [facility] Co de Phone Number [facility] [place] [address] * Heparin (unfractionated) Level (06/04/2024 4:38 AM [...] ORDERABLE S [facility] [place] [address] * (ABNORMAL) CBC (with Diff) (06/04/2024 4:38 AM EDT) White Blood Cell 11.45(H) 4.00 - 9.50 x10(3)/mc L 06/04/2024 5:12 AM EDT [facility] Red Blood Cell 5.35 4.58 - 5.54 x10(6)/mc L 06/04/2024 5:12 AM EDT [facility] Hemoglobin 16.0 13.7 - 16.5 g/dL 06/04/2024 5:12 AM EDT [facility] Hematocrit 49.6(H) 40.5 - 48.5 % 06/04/2024 5:12 AM EDT [facility] Mean Cell Volume 92.7 82.9 - 93.1 fL 06/04/2024 5:12 AM EDT [facility] Mean Cell Hemoglobin 29.9 27.5 - 32.1 pg 06/04/2024 5:12 AM EDT [facility] Mean Cell Hemoglobin Concentration 32.3 32.0 - 35.7 g/dL 06/04/2024 5:12 AM EDT [facility] Platelet 222 145 - 357 x10(3)/mc L 06/04/2024 5:12 AM EDT [facility] Mean Platelet Volume 9.5 7.6 - 12.9 fL 06/04/2024 5:12 AM EDT [facility] RDW Standard Deviation 47.6(H) 36.0 - 45.0 fL 06/04/2024 5:12 AM EDT [facility] RDW coefficient of variation 14.1(H) 11.4 - 13.8 % 06/04/2024 5:12 AM EDT [facility] NRBC% auto 0.0 % 06/04/2024 [...] Monocyte % 10.6 % 06/04/2024 5:[address] [facility] Monocyte Absolute 1.21(H) 0.30 - 0.90 x10(3)/mc L 06/04/2024 5:[address] [facility] Eos % 2.8 % 06/04/2024 5:[address] [facility] Eos Absolute 0.32 0.00 - 0.40 x10(3)/mc L 06/04/2024 5:[address] [facility] Basophil % 0.7 % 06/04/2024 5:[address] [facility] Baso Absolute 0.08 0.00 - 0.10 x10(3)/mc L 06/04/2024 5:[address] [facility] Immature Gran % 0.5 % 5:[address] [facility] Immature Gran Absolute 0.06(H) 0.00 - 0.04 x10(3)/mc L 06/04/2024 5:[address] [facility] Blood VENOUS BLOOD SPECIMEN / Unknown Venipuncture / Unknown 06/04/2024 4:38 AM EDT 06/04/2024 5:07 AM EDT Shahnaz Scanlon MD HEMATOLOGY ORDERABLE S [facility] [place] [address] * Magnesium (06/04/2024 4:38 AM EDT) Magnesium 0.84 0.69 - 1.07 mMol/L 06/04/2024 5:35 AM EDT [facility] Blood VENOUS BLOOD SPECIMEN / Unknown Venipuncture / Unknown 06/04/2024 4:38 AM EDT 06/04/2024 5:07 AM EDT Shahnaz Scanlon MD CHEMISTRY ORDERABLES Performing Organization Address City/[facility]/ZIP Co de Phone Number [facility] [place] [address] * (ABNORMAL) Basic Metabolic Panel (06/04/2024 4:38 [...] - 5.0 mMol/L 06/04/2024 5:35 AM EDT [facility] Chloride 97(L) 98 - 107 mMol/L 06/04/2024 5:35 AM EDT [facility] Carbon Dioxide 29 22 - 31 mMol/L 06/04/2024 5:35 AM EDT [facility] Anion Gap 11 5 - 15 mMol/L 06/04/2024 5:35 AM EDT [facility] Calcium 9.0 8.5 - 10.5 mg/dL 06/04/2024 5:35 AM EDT [facility] Est Glomerular [...] CHEMISTRY ORDERABLES [facility] [place] [address] * Heparin (unfractionated) Level (06/03/2024 8:58 PM [...] MD HEMATOLOGY ORDERABLE S Performing Organization Address [facility]/ZIP Co de Phone Number [facility] [place] [place] [address] * POC, GLUCOSE (06/03/2024 8:05 PM EDT) Glucometer, POC 136 65 - 199 mg/dL 06/03/2024 8:05 PM EDT [facility] Comment:Supplemental ranges: <140 mg/dL before meals <180 mg/dL all other times of the day. Blood CAPILLARY BLOOD / Unknown 06/03/2024 8:05 PM EDT 06/03/2024 8:05 PM EDT Delroy Fofana MD POINT OF CARE TEST ORDERABLES Performing Organization Address [facility] Co de Phone Number [facility] [place] [address] * POC, GLUCOSE (06/03/2024 5:48 PM EDT) Glucometer, POC 191 65 - 199 mg/dL 06/03/2024 5:48 PM EDT [facility] Comment:Supplemental ranges: <140 mg/dL before meals <180 mg/dL all other times of the day. Blood CAPILLARY BLOOD / Unknown 06/03/2024 5:48 PM EDT 06/03/2024 5:49 PM EDT Delroy Fofana MD POINT OF CARE TEST ORDERABLES [facility] [place] [address] * CT Chest wo Contrast (Generic) (06/03/2024 4:33 PM EDT) WORKSTATION ID [id number] RAD Anatomical Region Laterality Modality Chest Computed Tomogra phy Impressions 06/03/2024 4:47 PM EDT Cardiomegaly. Biventricular ICD leads in place. Thank you for letting us participate in the care of this patient. ??If you are a health care provider and have any questions regarding this report, please contact the number below. ??For patients who have questions please contact the health director of health care marketing that requested your imaging first. ? Electronically signed by: Stuart Aponte MD, [facility] ??([phone]), at 06/03/2024 4:47 PM Narrative 06/03/2024 4:47 [...] patients who have questions please contactthe health director of health care marketing that requested your imaging first. Electronically signed by: Stuart Aponte MD, [facility]([phone]), at 06/03/2024 4:47 PM Bobby Loja MD IMG CT ORDERABLES * Carotid Duplex, Bilateral (06/03/2024 2:19 PM EDT) VB Text Report Department: Vascular Surgery Lab Patient: [id number] (GEORGE MEHTA) CPT: 36557 Referring Physician: BOBBY LOJA ?? Phone: Indications: [...] Loja MD VASCULAR ORDERABLES Performing Organization Address City/State/[facility] Co de Phone Number VASCUBASE [...] ORDERABLE S [facility] [place] [address] * POC, GLUCOSE (06/03/2024 11:14 AM EDT) Glucometer, POC 166 65 - 199 mg/dL 06/03/2024 11:14 AM EDT [facility] Comment:Supplemental ranges: <140 mg/dL before meals <180 mg/dL all other times of the day. Blood CAPILLARY BLOOD / Unknown 06/03/2024 11:14 AM EDT 06/03/2024 11:14 AM EDT Delroy Fofana MD POINT OF CARE TEST ORDERABLES Performing Organization Address [facility] Co de Phone Number [facility] [place] [address] * (ABNORMAL) Troponin-T, High Sensitivity 3 Hour [...] [facility] Test Catalog Troponin - https://[facility].testcatalog.org/catalogs/565/files/38343 Reference: Fourth [place] Definition of Myocardial Infarction. Journal of the [place] College [employer] 2018;72:7107-4100 Troponin-T, HS 3 hr delta 06/03/2024 10:50 AM EDT [facility] Comment:Delta troponin value not calculated, sample collected outside of delta calculation time limit. Blood VENOUS BLOOD SPECIMEN / Unknown IP Care Team Draw / Unknown 06/03/2024 10:06 AM EDT 06/03/2024 10:15 AM EDT Delroy Fofana MD CHEMISTRY ORDERABLE S [facility] [place] [address] * ECHO COMPLETE W CONTRAST (06/03/2024 8:46 AM EDT) Anatomical Region Laterality Modality Cardiac Other 06/03/2024 6:52 AM EDT Narrative 06/03/2024 10:32 AM EDT [address] [place] [address] ? Echocardiogram Report Name: GEORGE MEHTA ?Study Date: 06/03/2024 06:52 AM : 1955 ? Height: 168 cm ? Account: [id number] Age: 69 yrs ? Weight: 102 kg Gender: Male ?BSA: 2.1 m2 Ordering Physician: SHAHNAZ SCANLON Referring Physician: NEHAL QUINTERO Performed By: Sara Kebede RDCS Reason For Study: STEMI Exam Location: [facility]. Interpretation Summary -Left ventricular systolic function [...] fellow performed study of today's date). Procedure Complete-[id number]. Image enhancement Optison was used for left [...] Note Jonnie Jordan MD - 06/03/2024 [address] [place] [address] Echocardiogram Report Name: GEORGE MEHTA Study Date: 406:52 AM : 1955 Height: 168 cm Account: [id number] Age: 69 yrs Weight: 102 kg Gender: Male BSA: 2.1 m2 Ordering Physician: SHAHNAZ SCANLON Referring Physician: NEHAL QUINTERO Performed By: Sara Kebede RDCS Reason For Study: STEMI Exam Location: [facility]. Interpretation Summary -Left ventricular systolic function [...] a fellow performed study of's date). Procedure Complete-[id number]. Image enhancement Optison was used for left [...] [facility] Test Catalog Troponin - https://one-.testcatalog.org/catalogs/565/files/39009 Reference: Fourth [place] Definition of Myocardial Infarction. Journal of the [place] College [employer]iology 2018;72:9631-5707 Troponin-T, HS 1 hr delta 5 ng/L [...] MD CHEMISTRY ORDERABLE S Performing Organization Address City/[facility]/ZIP Co de Phone Number [facility] [place] [address] * POC, GLUCOSE (06/03/2024 7:54 AM EDT) Glucometer, POC 195 65 - 199 mg/dL 06/03/2024 7:55 AM EDT [facility] Comment:Supplemental ranges: <140 mg/dL before meals <180 mg/dL all other times of the day. Blood CAPILLARY BLOOD / Unknown 06/03/2024 7:54 AM EDT 06/03/2024 7:55 AM EDT Nuha Rojo MD POINT OF CARE TEST ORDERABLES Performing Organization Address [facility] Co de Phone Number [facility] [place] [address] * (ABNORMAL) Troponin-T, High Sensitivity (06/03/2024 7:39 [...] troponin value can be found in the [facility] Test Catalog Troponin - https://[employer]/catalogs/565/files/94043 Reference: Fourth [place] Definition of Myocardial Infarction. Journal of the [place] College of Cardiology 2018;72:2341-7464 Blood VENOUS BLOOD SPECIMEN / Unknown IP Care Team Draw / Unknown 06/03/2024 7:39 AM EDT 06/03/2024 7:48 AM EDT Delroy Fofana MD CHEMISTRY ORDERABLE S [facility] [place] [address] * (ABNORMAL) Troponin-T, High Sensitivity 3 Hour [...] troponin value can be found in the [facility] Test Catalog Troponin - https://[employer]/catalogs/565/files/00076 Reference: Fourth [place] Definition of Myocardial Infarction. Journal of the [place] College of Cardiology 2018;72:7500-5032 Troponin-T, HS 3 hr delta 46 ng/L [...] CHEMISTRY ORDERABLES [facility] [place] [address] * (ABNORMAL) Troponin-T, High Sensitivity 1 Hour [...] [facility] Test Catalog Troponin - https://[facility]-.testcatalog.org/catalogs/565/files/98796 Reference: Fourth [place] Definition of Myocardial Infarction. Journal of the [place] College of Cardiology 2018;72:2082-4215 Troponin-T, HS 1 hr delta 10 ng/L [...] CHEMISTRY ORDERABLES [facility] [place] [address] * XR Chest One View (06/03/2024 2:41 AM EDT) WORKSTATION ID [id number] RAD Anatomical Region Laterality Modality Chest N/A Digital Radiogra phy Impressions 06/03/2024 3:06 AM EDT No radiographically evident acute cardiopulmonary process. Thank you for letting us participate in the care of this patient. ??If you are a health care provider and have any questions regarding this report, please contact the number below. ??For patients who have questions please contact the health director of health care marketing that requested your imaging first. ? Electronically signed by: Corazon Mauro MD, [facility] ([phone]), at 06/03/2024 3:06 AM Narrative 06/03/2024 3:06 [...] patients who have questions please contactthe health director of health care marketing that requested your imaging first. Electronically signed by: Corazon Mauro MD, [facility]([phone]), at 06/03/2024 3:06 AM Shahnaz Scanlon MD [...] ORDERABLE S [facility] [place] [address] * (ABNORMAL) Troponin-T, High Sensitivity (06/03/2024 2:13 [...] [facility] Test Catalog Troponin - https://one-.testcatalog.org/catalogs/565/files/78855 Reference: Fourth [place] Definition of Myocardial Infarction. Journal of the [place] College of Cardiology 2018;72:9141-5528 Blood VENOUS BLOOD SPECIMEN / Unknown IP Care Team Draw / Unknown 06/03/2024 2:13 AM EDT 06/03/2024 2:32 AM EDT Shahnaz Scanlon MD CHEMISTRY ORDERABLES Performing Organization Address City/[facility]/ZIP Co de Phone Number [facility] [place] [address] * Magnesium (06/03/2024 2:13 AM EDT) Magnesium 0.86 0.69 - 1.07 mMol/L 06/03/2024 3:02 AM EDT [facility] Blood VENOUS BLOOD SPECIMEN / Unknown IP Care Team Draw / Unknown 06/03/2024 2:13 AM EDT 06/03/2024 2:32 AM EDT Shahnaz Scanlon MD CHEMISTRY ORDERABLES Performing Organization Address City/[facility]/ZIP Co de Phone Number [facility] [place] [address] * Basic Metabolic Panel (06/03/2024 2:13 AM EDT) Glucose 126 65 - 199 mg/dL 06/03/2024 3:02 AM EDT [facility] Comment:Glucose Concentratio n >=200 mg/dL plus symptoms is consistent with Diabetes Mellitus. Blood Urea Nitrogen 20 10 - 20 mg/dL 06/03/2024 3:02 AM EDT [facility] Creatinine 1.13 0.80 - 1.50 mg/dL 06/03/2024 3:02 AM EDT [facility] Sodium 139 135 - 145 mMol/L 06/03/2024 3:02 AM EDT [facility] Potassium 4.2 3.5 - 5.0 mMol/L 06/03/2024 3:02 AM EDT [facility] Chloride 101 98 - 107 mMol/L 06/03/2024 3:02 AM EDT [facility] Carbon Dioxide 26 22 - 31 mMol/L 06/03/2024 3:02 AM EDT [facility] Anion Gap 12 5 - 15 mMol/L 06/03/2024 3:02 AM EDT [facility] Calcium 9.8 8.5 - 10.5 mg/dL 06/03/2024 3:02 AM EDT [facility] Est Glomerular [...] CHEMISTRY ORDERABLES [facility] [place] [address] * (ABNORMAL) CBC (with Diff) (06/03/2024 2:13 AM EDT) White Blood Cell 11.16(H) 4.00 - 9.50 x10(3)/mc L 06/03/2024 2:37 AM EDT [facility] Red Blood Cell 5.09 4.58 - 5.54 x10(6)/mc L 06/03/2024 2:37 AM EDT [facility] Hemoglobin 15.0 13.7 - 16.5 g/dL 06/03/2024 2:[address] [facility] Hematocrit 47.4 40.5 - 48.5 % 06/03/2024 2:[address] [facility] Mean Cell Volume 93.1 82.9 - 93.1 fL 06/03/2024 2:[address] [facility] Mean Cell Hemoglobin 29.5 27.5 - 32.1 pg 06/03/2024 2:[address] [facility] Mean Cell Hemoglobin Concentration 31.6(L) 32.0 - 35.7 g/dL 06/03/2024 2:[address] [facility] Platelet 217 145 - 357 x10(3)/mc L 06/03/2024 2:[address] [facility] Mean [...] % 8.1 % 06/03/2024 2:37 AM EDT [facility] Monocyte Absolute 0.90 0.30 - 0.90 x10(3)/mc L 06/03/2024 2:37 AM EDT [facility] Eos % 2.4 % 06/03/2024 2:37 AM EDT [facility] Eos Absolute 0.27 0.00 - [...] ORDERABLE S [facility] [place] [address] * Lipid Panel (Reflex Direct LDL) (06/03/2024 [...] 2:13 AM EDT 06/03/2024 2:32 AM EDT [facility] - 06/03/2024 3:02 AM EDT [...] artery disease) Shahnaz Scanlon MD CHEMISTRY ORDERABLES [facility] [place] [address] * (ABNORMAL) APTT (06/03/2024 2:13 AM EDT) [facility] Signature Partial Thromboplastin Time 105(HHH) 25 - [...] ORDERABLE S [facility] [place] [address] * Prothrombin Time (06/03/2024 2:13 AM EDT) [...] ORDERABLE S [facility] [place] [address] * Hepatic Function Panel (06/03/2024 2:13 AM [...] CHEMISTRY ORDERABLES [facility] [place] [address] * (ABNORMAL) pro-Brain Natriuretic Peptide (06/03/2024 2:13 AM EDT) NT-proBNP 1,628(H) <=124 pg/mL 06/03/2024 4:15 AM EDT [facility] Blood VENOUS BLOOD SPECIMEN / Unknown IP Care Team Draw / Unknown 06/03/2024 2:13 AM EDT 06/03/2024 2:32 AM EDT Shahnaz Scanlon MD CHEMISTRY ORDERABLES Performing Organization Address City/[facility]/ZIP Co de Phone Number [facility] [place] [address] * Phosphorus (06/03/2024 2:13 AM EDT) Phosphorus 4.4 2.5 - 4.5 mg/dL 06/03/2024 3:02 AM EDT [facility] Blood VENOUS BLOOD SPECIMEN / Unknown IP Care Team Draw / Unknown 06/03/2024 2:13 AM EDT 06/03/2024 2:32 AM EDT Shahnaz Scanlon MD CHEMISTRY ORDERABLES [facility] [place] [address] * EKG 12 Lead (06/03/2024 1:45 AM EDT) Ventricular rate 63 BPM MUSE SYSTEM Atrial Rate 63 BPM MUSE SYSTEM P-R Interval 168 ms MUSE SYSTEM QRS Duration 96 ms MUSE SYSTEM Q-T Interval 400 ms MUSE SYSTEM QTC Calculated (Bezet) 409 ms MUSE SYSTEM Calculated P [place] 65 degrees MUSE SYSTEM Calculated R [place] 70 degrees MUSE SYSTEM Calculated T [place] -86 degrees MUSE SYSTEM INTERPRETATION Atrial-sensed ventricular-paced rhythm Abnormal ECG No previous ECGs available I personally reviewed the tracing and edited the fellows interpretation Confirmed by fellow Sunni Agudelo ([id number]) on 06/04/2024 3:55:40 PM Confirmed by MD Tamia, Stuart Perry ([id number]) on 06/05/2024 11:46:48 AM MUSE SYSTEM 06/03/2024 1:45 AM EDT 06/05/2024 11:46 AM EDT Shahnaz Scanlon MD ECG ORDERABLES MUSE SYSTEM * CARDIAC CATHETERIZATION (06/03/2024 12:42 AM EDT) Anatomical Region Laterality Modality Other Narrative 06/04/2024 2:22 PM EDT ?[facility] ? Cardiac Catheterization/Intervention Report ? Patient Name: George Mehta L. ? Procedure Date: 06/02/2024 ? A #: [id number] ? Primary Physician: Nuha Shen I ? Case #: [id number] ? File Name: [id number] ? Catheterization Order Number: [id number] ? [facility] ? Final Report [place], [place] ? Patient Name: ? George L. Tyson ? ID#: ?[id number] ? : ?1955 ? Procedure Date: ? [...] was designated as ASA Class IV. The [facility] clinical frailty ?scale is 5: Mildly Frail. ? Diagnostic Tests: ?Electrocardiography: ? EKG was assessed by ECG. EKG was Abnormal. EKG showed ST Deviation ? >= 0.5 mm. ?Medications Prior to Procedure: ? Sacubitril and Valsartan, Aspirin, Beta Erik, Statin and ? Thrombolytic (any). ? Indications for Diagnostic Cath: ?The priority of the diagnostic procedure was Emergent. The indication for ?the supervisor cytogenetic laboratory visit is ACS less than or equal [...] ?3.5 guiding catheter and a 3.5 Fr [facility] [facility] [place] 20 Mhz using Manual ?pullback. ??Imaging was [...] 3.5 guiding catheter and a 3.5 Fr [facility] [facility] [place] 20 Mhz using ?Manual pullback. ??Imaging was [...] Nuha Shen MD - 07/20/2024 [facility] Cardiac Catheterization/Intervention Report Patient Name: George Mehta Procedure Date: 06/02/2024 A #: [id number] Primary Physician: Nuha Shen I Case #: [id number] File Name: [id number] Catheterization Order Number: [id number] [facility] FinalReport [place], [place] Patient Name: George Mehta ID#:[id number] :1955 Procedure Date: June 02, 2024 Case [...] was designated as ASA Class IV. The [facility] clinicalfrailty scale is 5: Mildly Frail. Diagnostic Tests: Electrocardiography: EKG was assessed by ECG. EKG was Abnormal. EKG showed STDeviation >= 0.5 mm. Medications Prior to Procedure: Sacubitril and Valsartan, Aspirin, Beta Erik, Statin and Thrombolytic (any). Indications for Diagnostic Cath: The priority of the diagnostic procedure was Emergent. Theindication for the supervisor cytogenetic laboratory visit is ACS less than or equal [...] units of heparin were administered. A total xs187uq of Omnipaque were opened, 84cc of Omnipaque were administered hmk10tu of Omnipaque were wasted. Radiation: Fluoro time [...] 3.5 guiding catheter and a 3.5 Fr [facility] [facility] [place] 20 Mhz usingManual pullback. Imaging was successful. [...] 3.5 guiding catheter and a 3.5 Fr [facility] [place] 20 Mhzusing Manual pullback. Imaging was successful. Indication: IVUS performed for pre intervention planning. Findings Pre-Intervention: scattered plaque, calcification and [id number] degrees calcification. Findings Post-Intervention: Stent not imaged [...] * POC, GLUCOSE (06/02/2024 11:31 PM EDT) [facility] Signature Glucometer, POC 156 65 [...] City/State/[facility] Co de Phone Number [facility] [place] [phone] documented in this encounter Visit Diagnoses Not [...] 2100, Last dose on Fri06/23/24 at 0900, Pourer recommended duration is 3 days., Routine Given [...] 10:46 AM EST 50 mEq sodium chloride ([place]) 0.65 % nasal spray 1 spray 1 [...] 2100, Last dose on Fri06/23/24 at 0900, Pourer recommended duration is 3 days., Routine 2043 [...] Oral, 2 TIMES DAILY, First dose on Miugelina 06/17/24 at 0900, Until Discontinued, Routine, Is [...] oral route first line., Routine sodium chloride ([place]) 0.65 % nasal spray 1 spray 1 [...] 6 hours upon arrival to Unit. Give AR if unable to take PO, Routine Group [...] Routine documented in this encounter Care Teams Remnants Cutter Relationship Specialty Start Date End Date Mauro Berumen MD [address] [place] [address] PCP - General Family Medicine 06/02/24 documented as of this encounter
--- OUTSIDE RECORDS SUMMARY | 2024-08-20 11:03 | XMS_ITS | Encounter Summary ---
Author Organization [facility] Address [facility] [place] [address] Care Team Providers Care Coping Machine Assembler Name Role Phone Mauro Berumen MD Primary Care Provider [phone] Encounter Details Date Type Department Care Team (Late st Contact Info) Description 06/03/2024 Orders Only Cardiology [facility] [place] [id number] Unknown None Social History Tobacco Use Types Packs/Day Years Used Date Smoking Tobacco: Every Day Cigarettes Smokeless Tobacco: Never [facility] Utilities Answer Date Recorded In the past 12 months has th e electric, gas, oil, or water [employer] threatened to shut off services in your [...] in a usp (including now)? No 06/03/2024 IPV Inpatient Questions [...] PM EST Office Visit Cardiology at [address] [address] [facility] [address] documented as of this encounter Procedures Procedure Name Priority Date/Time Associated Diagnosis Comments ECHOCARDIOGRAM TRANSTHORACIC Routine 06/03/2024 2:23 AM EDT documented in this encounter Results * Echocardiogram Transthoracic (06/03/2024 2:23 AM EDT) Anatomical Region Laterality Modality Cardiac Other 06/03/2024 2:23 AM EDT Narrative 06/03/2024 10:32 AM EDT [address] [place] [address] ? Echocardiogram Report Name: ARTURO NICHOLS ?Study Date: 06/03/2024 02:23 AM : 1955 Age: 69 yrs Gender: Male Performed By: Sascha Silva MD Reason For Study: STEMI Interpreting Fellow: Sacsha Silva. Interpretation Summary Limited echo performed by fellow sewer contractor to assess LV function. Left ventricle is mild to moderately dilated. Left ventricular ejection fraction is estimated visually at 25%. There is global dyskinesia with mid-basilar posterior-posterolateral akinesis. Right ventricle is not well seen. RV systolic function is probably normal. There is no prior echo for comparison. Procedure Limited - 22966. Suboptimal quality. Ventricular paced. Left Ventricle Left [...] Note Jonnie Jordan MD - 06/03/2024 [address] [place] [address] Echocardiogram Report Name: ARTURO NICHOLS Study Date: 06/03/2024 02:23AM : 1955 Age: 69 yrs Gender: Male Performed By: Sascha Silva MD Reason For Study: STEMI Interpreting Fellow: Sascha Silva. Interpretation Summary Limited echo performed by fellow sewer contractor to assess LV function. Left ventricle is mild to moderately dilated. Left ventricular ejectionfraction is estimated visually at 25%. There is global dyskinesia withmid-basilar posterior-posterolateral akinesis. Right ventricle is not well seen. RV systolic function is probablynormal. There is no prior echo for comparison. Procedure Limited - 75539. Suboptimal quality. Ventricular paced. Left Ventricle Left [...] on filedocumented in this encounter Care Teams Coping Machine Assembler Relationship Specialty Start Date End Date Mauro Berumen MD [address] [place] [id number] PCP - General Family Medicine 06/02/24 documented as of this encounter
--- OUTSIDE RECORDS SUMMARY | 2024-08-20 11:03 | XMS_ITS | Encounter Summary ---
Author Organization [facility] Address [facility] [place] [address] Care Team Providers Care Mis Specialist Name Role Phone Mauro Berumen MD Primary Care Provider [phone] Encounter Details Date Type Department Care Team (Late st Contact Info) Description 06/08/2024 Ophth [place] [address] Yumiko De La Torre, COT Social History Tobacco Use Types Packs/Day Years Used Date Smoking Tobacco: Every Day Cigarettes Smokeless Tobacco: Never [facility] Utilities Answer Date Recorded In [...] any time in the past 12 m [facility], were you homeless or living in a senior care (including now)? No 06/03/2024 IPV Inpatient Questions [...] 2:00 PM EST Office Visit Cardiology at [address] [address] Moi Falcon MD [facility] [place] [address] documented as of this encounter Visit Diagnoses Not on filedocumented in this encounter Care Teams Mis Specialist Relationship Specialty Start Date End Date Mauro Berumen MD [address] [place] [address] PCP - General Family Medicine 06/02/24 documented as of this encounter
--- OUTSIDE RECORDS SUMMARY | 2024-08-20 11:03 | XMS_ITS | Encounter Summary ---
Author Organization [facility] Address [place] [address] Care Team Providers Care Cleaner Industrial Name Role Phone Mauro Berumen MD Primary Care Provider [phone] Encounter Details Date Type Department Care Team (Latest Contact Info) Description 06/03/2024 Travel Social History Tobacco Use Types Packs/Day Years Used Date Smoking Tobacco: Every Day Cigarettes Smokeless Tobacco: Never [facility] Utilities Answer Date Recorded In the past [...] time in the past 12 m [facility], were you homeless or living in a [...] 2:00 PM EST Office Visit Cardiology at [address] [address] Moi Falcon MD [facility] [place] [address] documented as of this encounter Visit Diagnoses Not on filedocumented in this encounter Care Teams Cleaner Industrial Relationship Specialty Start Date End Date Mauro Berumen MD [address] [place] [address] PCP - General Family Medicine 06/02/24 documented as of this encounter
--- OUTSIDE RECORDS SUMMARY | 2024-08-20 11:03 | XMS_ITS | Encounter Summary ---
Author Organization [facility] [place] [address] Care Team Providers Care [employer] Name Role Phone Mauro Berumen MD Primary Care Provider [phone] Reason for Visit * Auth/Cert Specialty Diagnoses / Procedures Referred By Carroll lopez Referred To Contact Diagnoses STEMI (ST elevation myocardial infarction) STEMI Procedures CARDIAC CATHETERIZATION EMERGENCY Delroy Monterroso MD [facility] [place] [address] [facility] Referral ID Status Reason Start Date Expiration Date Visits Re quested Visits Authorized [id number] 1 1 Encounter Details Date Type Department Care Team (Late st Contact Info) Description 06/13/2024 9:00 AM EST - 06/13/2024 10:00 AM EST [place] [address] Nuha Shen MD [facility] [place] [address] CARDIAC CATHETERIZATION Social History Tobacco Use Types Packs/Day Years Used Date Smoking Tobacco: Every Day Cigarettes Smokeless Tobacco: Never Tobacco Cessation:Ready to Q uit: No; Counseling Given: Yes [facility] Utilities Answer Date Recorded In the past 12 months has [employer], gas, oil, or water company threatened to [...] any time in the past 12 [facility], were you homeless or living [...] Patient Age: 69 y.o. Birthdate: 1955 Language: Khmer Race: Choose not to Disclose Ethnicity: Not nor Admit Date: 06/02/2024 Discharge Date: 06/21/2024 Attending Physician: Bobby Loja MD Follow-up Recommendations for Providers: Please continue routine management of cardiovascular risk factors including blood pressure, lipids,glucose, etc. Please note any changes to medications. Patient to follow up with PCP, Mauro Berumen MD, in 1-2 weeks. Patient to follow up with Corridor Redevelopment Manager, Kristen Cardenas in 2-3 weeks. Patient to follow up with Cardiac Surgeon, Dr. Bobby Loja, in 4 wks. Inpatient Provider Contact Information: [facility] Section of Cardiac Surgery [facility] [address] FAX [phone] Discharge Diagnoses (Hospital Problems) Primary Diagnoses: STEMI [...] 7.93) performed by Bobby Loja MD at [facility] OR PRO ENDOSCOPY W/VIDEO-ASST VEIN HARVEST, CABG N/A 06/14/2024 ENDOSCOPIC HARVEST VEIN(S) FOR CABG (WRVU 0.31) performed by Bobby Loja MD at [facility] MAIN OR PRO EXC MEDIASTINAL TUMOR N/A 06/14/2024 @EXCISION OF MEDIASTINAL TUMOR (WRVU 19.55) performed by Bobby Loja MD at [facility] MA[facility] OR PRO INSERT INTRA-AORTIC BALLOON ASST DEVICE PERCUTANEOUS N/A 06/13/2024 @INSERTION OF IABP,PERCUTANEOUS (WRVU 4.84) performed by Nuha Shen MD at [facility] CATH LABS PRO UNLISTED CARDIAC SURG PROCEDURE N/A 06/14/2024 EXPLORATION AND OVERSEW ATRIAL APPENDAGE (WRVU 5.94) performed by Bobby Loja MD at [facility] Prior To Admission Medications Medications [...] ASA, plavix, heparin gtt, and sent to [facility] for coronary angiography. [facility] demonstrated severely calcified left coronary system with notable LCx 75/80% lesions and LOCAL OPERATOR OM1 with ISR with collateral retrograde [...] Hospital Course: George Mehta was admitted to [facility] on 06/02/2024 via the CardiologyService with an anterior STEMI after receiving lytics at OSH. He was brought to the cath lab technologist which showed severely calcified left coronary system with notable LCx 75/80% lesions and LOCAL OPERATOR OM1 with ISR with collateral retrograde [...] 2 tablespoons of dried fruit. Milk and hj-dtsvo-klqbw yogurt have 15 grams of carbs in a serving. A serving is 1 cup of milk or 3/4 cup (6 oz) of cf-pcllo-vejwb yogurt. Starchy vegetables have 15 grams of [...] Bobby Loja and/or the Cardiac Surgery Physician Marketing Campaign Analyst Team may be reached at . Weight: [...] Dr. Bobby Loja. You may use a [place] or treadmill but avoid any pulling [...] should resume a low fat, low cholesterol, Swedish Heart Association Diet/Diabetic diet. Driving: No driving [...] while being managed by your PCP and/or Corridor Redevelopment Manager. For future medication refills, please refer to your PCP and/or Corridor Redevelopment Manager after your discharge from our service. Thank you REMOVE CHEST TUBE SUTURES ON OR AFTER 06/24/2024 Home oxygen therapy: N/A Follow up appointments: You should follow up with your PCP, Mauro Berumen MD, in 1-2 weeks. You should follow up with your Corridor Redevelopment Manager, Dr CARDENAS. You have an appointment [...] Complete By Expires Referral to Cardiac Rehab [LXG231 Custom] As directed Process Instructions: If no [...] Home Health. [address] [facility] [address] (home) Date of : 1955 Inpatient DOCUMENTATION FOR VNA SERVICES (INCLUDING THOSE PATIENTS WITH MEDICARE COVERAGE REQUIRINGHOME VNA SERVICES AND/OR HOSPICE SERVICES) PATIENT'S LOCATION: George Mehta [address] [facility] [address] (home) Telephone Information: Blast Setter's Name: self In discussion with the attending physician, it is certified that this patient is under their care and that they, or a Nurse Practitioner, or Physician Marketing Campaign Analyst who is working directly with them, hada [...] services as follows: HOME HEALTH AGENCY: [facility]. [address] [place] [id number] RN orders: Cardiopulmonary assessment, incisional assessment, assess [...] issues please call the Cardiology Office at [phone] FOR MEDICARE ONLY: (please delete this section [...] above. Signed: KEILA HANLEY APRN [facility] Section of Cardiac Surgery [facility] [address] FAX [phone] Date: 06/21/2024 CC: MD Antonino Tinajero Joshua R, PA [address] [place] [address] [place] [address] documented in this encounter Discharge Instructions * [...] 2 tablespoons of dried fruit. Milk and jg-jgdoz-vxhez yogurt have 15 grams of carbs in a serving. A serving is 1 cup of milk or 3/4 cup (6 oz) of wj-lvhcm-cldsp yogurt. Starchy vegetables have 15 grams of [...] Bobby Loja and/or the Cardiac Surgery Physician Marketing Campaign Analyst Team may be reached at . Weight: [...] Dr. Bobby Loja. You may use a [place] Track or treadmill but avoid any pulling [...] should resume a low fat, low cholesterol, Swedish Heart Association Diet/Diabetic diet. Driving: No driving [...] while being managed by your PCP and/or Corridor Redevelopment Manager. For future medication refills, please refer to your PCP and/or Corridor Redevelopment Manager after your discharge from our service. Thank you REMOVE CHEST TUBE SUTURES ON OR AFTER 06/24/2024 Home oxygen therapy: N/A Follow up appointments: You should follow up with your PCP, Mauro Berumen MD, in 1-2 weeks. You should follow up with your Corridor Redevelopment Manager, Dr CARDENAS. You have an appointment [...] RN - 06/21/2024 8:32 AM EST During [facility] Purposeful Rounding, an assessment of your patient's venous access was performed [facility] theVascular Access Service. The following tasks [...] RN - 06/21/2024 8:31 AM EST During [facility] Purposeful Rounding, an assessment of your patient's venous access was performed [facility] theVascular Access Service. The following tasks [...] or weekly) [] Other * Alejandra Baumann, MUSIC PUBLICIST - 06/21/2024 7:05 AM EST Follow Up [...] MARIALUISA clipping. PMH of chronic HFrEF s/p TOUR NARRATOR/ICD, IDDM2, HTN, HLD, remote melanoma, active smoker. [...] juice or regular (not diet) soda 6 LuckyLabsavers small box of raisins 4 glucose tablets [...] 2 tablespoons of dried fruit. Milk and fl-rdizr-quxqz yogurt have 15 grams of carbs in a serving. A serving is 1 cup of milk or 3/4 cup (6 oz) of nq-wevnn-ynqhk yogurt. Starchy vegetables have 15 grams of [...] cheese, and peanut butter. Alejandra Baumann APRN [facility] Endocrinology Diabetes Management Pager [phone] Weekends please page [phone] * Eric Packer PA - 06/20/2024 7:44 AM EST Cardiac Surgery Progress Note George Mehta is a 69 y.o. male with a history of CAD s/p multiple PCI who presented with an anterior STEMI and was given lytics. Cath showed MV CAD without culprit vessel. He is now 6 Days Post-OpCABGx3 and MARIALUISA clipping. PMH of chronic HFrEF s/p TOUR NARRATOR/ICD, IDDM2, HTN, HLD, remote melanoma, active smoker. 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 06/20/2024 Between the hours of 1800 - 0600 and on the weekends please page [phone]. * Alejandra Baumann, JOSÉ ANTONIO - 06/20/2024 7:21 AM EST Follow Up Diabetes Consult Patient Interview Blood glucose values and insulin use reviewed. printing technician BG to 59 despite decrease in [...] MARIALUISA clipping. PMH of chronic HFrEF s/p TOUR NARRATOR/ICD, IDDM2, HTN, HLD, remote melanoma, active smoker. 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 Milk and dn-rjyxr-efnlz yogurt have 15 grams of carbs in a serving. A serving is 1 cup of milk or 3/4 cup (6 oz) of ox-fxldz-folau yogurt. Starchy vegetables have 15 grams of [...] MARIALUISA clipping. PMH of chronic HFrEF s/p TOUR NARRATOR/ICD, IDDM2, HTN, HLD, remote melanoma, active smoker. 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 Jeffy Hood MD 06/19/2024 Between the hours of 1800 - 0600 and on the weekends please page [phone]. * Alejandra Baumann, MUSIC PUBLICIST - 06/19/2024 7:09 AM EST Follow Up Diabetes Consult Patient Interview Blood glucose values and insulin use reviewed. Jardiance added back yesterday, metal tank builder low BGto 51. Glargine reduced to 45 [...] MARIALUISA clipping. PMH of chronic HFrEF s/p TOUR NARRATOR/ICD, IDDM2, HTN, HLD, remote melanoma, active smoker. Jardiance added back yesterday. printing technician low BG to 51. Glargine reduced [...] 2 tablespoons of dried fruit. Milk and sa-njxea-oivmf yogurt have 15 grams of carbs in a serving. A serving is 1 cup of milk or 3/4 cup (6 oz) of ju-bbvhf-jttkm yogurt. Starchy vegetables have 15 grams of [...] cheese, and peanut butter. Alejandra Baumann APRN [facility] Endocrinology Diabetes Management Pager [phone] Weekends please page [phone] * Hilda Resendez PTA - 06/18/2024 9:19 AM EST Physical Therapy Note 2 Patient profile: George Mehta is a 69 y.o. male with a history of CAD s/p multiple PCI who presented with an anterior STEMI and was given lytics. Cath showed MV CAD without culprit vessel. He is now 1 Day Post-Op CABGx3 and MARIALUISA clipping. PMH of chronic HFrEF s/p TOUR NARRATOR/ICD, IDDM2, HTN, HLD, remote melanoma, active smoker. Interval History: Per last cardiac surgery note on 06/18/2024 Cr improved 1.4 on lasix 40 iv bid -1.5L, made 2.5L urine Coreg, entresto restarted Floor status Social History: Pt lives with his in a 1 level apartment with no steps to enter. 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 He drives. He sleeps in a recliner at baseline. Precautions/Special Considerations: Sternal precautions, PIV, at risk to fall, PPM Mobility and Positioning Recommendations: Pt to utilize no AD, supervision for ambulation and transfers w/ staff physical therapy assistant as able. Please encourage up to [...] least restrictive device Time IN / OUT: 8193-8457 Total Time: 11 minutes; TEF 1 Hilda Resendez PTA Pager: [phone] Physical Therapy Inpatient Rehabilitation Department * Keila [...] MARIALUISA clipping. PMH of chronic HFrEF s/p TOUR NARRATOR/ICD, IDDM2, HTN, HLD, remote melanoma, active smoker. [...] 90 Pt is followed by heart failure delphi programmer at [facility], will get name for f/up appt Tx to floor #IDDM2 DM team following pre-op Lantus, SSI Carb controlled diet ? Restarting jardiance #Active smoker Duoneb prn Dispo: CVCC, Full code, tx to floor Discussed with attending surgeon on rounds this morning. KEILA HANLEY APRN 06/18/2024 Between the hours of 1800 - 0600 and on the weekends please page [phone]. * Alejandra Baumann APRN - 06/17/2024 3:29 [...] MARIALUISA clipping. PMH of chronic HFrEF s/p TOUR NARRATOR/ICD, IDDM2, HTN, HLD, remote melanoma, active smoker. [...] based on ISF 20 Alejandra Baumann APRN [facility] Endocrinology Diabetes Management Pager [phone] Weekends please page [phone] 35 minutes were [...] MARIALUISA clipping. PMH of chronic HFrEF s/p TOUR NARRATOR/ICD, IDDM2, HTN, HLD, remote melanoma, active smoker. [...] 0600 and on the weekends please page [phone]. * Raymond Carlton MD - 06/16/2024 1:11 PM EST CARDIAC CRITICAL CARE ATTENDING STAFF PROGRESS NOTE Patient seen and examined. George Mehta is a 69 y.o. male with: Active Hospital Problems Diagnosis STEMI (ST elevation myocardial infarction) Cardiac resynchronization therapy defibrillator (TOUR NARRATOR-D) - Medtronic Amplia Cardiomyopathy, ischemic Acute on chronic heart failure with reduced ejection fraction (HFrEF, <= 40%) Coronary artery disease involving [place] coronary artery of [place] heart without angina pectoris Type 2 [...] unless consulted in the interim. RICHA Simmons Plaster Form Maker * Octaviano Horvath PA - 06/16/2024 8:07 AM EST Cardiac Surgery Progress Note George Mehta is a 69 y.o. male with a history of CAD s/p multiple PCI who presented with an anterior STEMI and was given lytics. Cath showed MV CAD without culprit vessel. He is now 2 Days Post-OpCABGx3 and MARIALUISA clipping. PMH of chronic HFrEF s/p TOUR NARRATOR/ICD, IDDM2, HTN, HLD, remote melanoma, active smoker. [...] with attending surgeon on rounds this morning. HENKO BALTAZAR 06/16/2024 Between the hours of 1800 - 0600 and on the weekends please page [phone]. * Jono Fernandez PT - 06/15/2024 4:09 PM EST Physical Therapy Evaluation Patient profile: George Mehta is a 69 y.o. male with a history of CAD s/p multiple PCI who presented with an anterior STEMI and was given lytics. Cath showed MV CAD without culprit vessel. He is now 1 Day Post-Op CABGx3 and MARIALUISA clipping. PMH of chronic HFrEF s/p TOUR NARRATOR/ICD, IDDM2, HTN, HLD, remote melanoma, active smoker. 24h Events: From OR on Dobutamine IABP removed Bedrest ended ~2100, sedation weaned Extubated ~0200 Dobutamine weaned to 1 this morning, CI 2.6, shut off and repeat CI 2.4 Social History: Pt lives with his in a 1 level apartment with no steps to enter. 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 He drives. He sleeps [...] outlined inthis evaluation. JONO FERNANDEZ, PT Pager: [phone] Physical Therapy Inpatient Rehabilitation Department Time IN / OUT: 4060-0287 Total Time: 33 (eval) minutes * Alejandra Baumann APRN - 06/15/2024 11:39 AM EST Follow Up Diabetes Consult Patient Interview Blood glucose values and insulin use reviewed. Pt remains on an insulin drip today following [id number] MARIALUISA clipping. George continues to complain of [...] MARIALUISA clipping. PMH of chronic HFrEF s/p TOUR NARRATOR/ICD, IDDM2, HTN, HLD, remote melanoma, active smoker. [...] based on ISF 20 Alejandra Baumann APRN [facility] Endocrinology Diabetes Management Pager [phone] Weekends please page [phone] 50 minutes were spent over the course [...] elevation myocardial infarction) Cardiac resynchronization therapy defibrillator (TOUR NARRATOR-D) - Medtronic Amplia Cardiomyopathy, ischemic Acute on chronic heart failure with reduced ejection fraction (HFrEF, <= 40%) Coronary artery disease involving [place] coronary artery of [place] heart without angina pectoris Type 2 [...] with h/o DM, CAD with prior PCI, TOUR NARRATOR-D who presented with crushing chest pain, found [...] MARIALUISA clipping. PMH of chronic HFrEF s/p TOUR NARRATOR/ICD, IDDM2, HTN, HLD, remote melanoma, active smoker. [...] sternotomy dressing CDI, saphenectomy dressing CDi Tubes/Lines/Drains: [place], RIJ, A-line, Mediastinal marcos and bilateral pleural [...] 0600 and on the weekends please page [phone]. * Yoli Donaldson GAS DISTRIBUTION SUPERVISOR - 06/15/2024 5:35 AM EST AMV Protocol: [...] with h/o DM, CAD with prior PCI, TOUR NARRATOR-D who presented with crushing chest pain, found [...] with h/o DM, CAD with prior PCI, TOUR NARRATOR-D who presented with crushing chest pain, found [...] 0600 and on the weekends please page [phone]. * Chloé Cortez - 06/14/2024 9:36 AM [...] unless consulted in the interim. Chloé Cortez Cae Engineer * Jim Benites MD - 06/13/2024 [...] - Mildly dilated left ventricle size with clapwwmo-xy-rfckawdk decreased LV systolic function. LV ejection fraction [...] elevation myocardial infarction) Cardiac resynchronization therapy defibrillator (TOUR NARRATOR-D) - Medtronic Amplia Cardiomyopathy, ischemic Acute on chronic heart failure with reduced ejection fraction (HFrEF, <= 40%) Coronary artery disease involving [place] coronary artery of [place] heart without angina pectoris Type 2 [...] PCP: Mauro Berumen MD PCP phone number: [phone] Date of Admission: 06/02/2024 ( Hospital Day 10 days ) Attending:Ethel Carrillo MD ID: 69 y.o. male with a h/o DM type 2, HTN, HLD, current smoker (2-3 cigarettes/day), HFrEF with anICD for low EF (~30%), and CAD with prior [place] x3 with JENNA placed in [place], [facility], PAD, presented to [facility] with 1 hour of retrosternal CP (05/13) while watching TV, found to have STEMI. Active Problems: Active Hospital Problems Diagnosis STEMI (ST elevation myocardial infarction) Cardiac resynchronization therapy defibrillator (TOUR NARRATOR-D) - Medtronic Amplia Cardiomyopathy, ischemic Acute on chronic heart failure with reduced ejection fraction (HFrEF, <= 40%) Coronary artery disease involving [place] coronary artery of [place] heart without angina pectoris Type 2 [...] in the last 7068 hours. Invalid input(s): [id number] Recent Labs 06/12/24 0425 06/11/24 2356 06/11/24 2025 06/11/24 1624 06/11/24 1108 06/11/24 0748 06/11/24 0357 06/11/24 0050 06/10/24 1922 06/10/24 1735 06/10/24 1125 06/10/24 0746 POCGLU 132 135 210* 81 233* 184 132 144 236* 123 216* 206* Heme No results for input(s): LDH, HAPTOGLOBIN, URICACID in the last 168 hours. ABG (Arterial Blood Gas) No results found for: PHART, PO2ART, [id number], [id number] Microbiology: Microbiology Results (Last 30 days) No results found for the last 720 hours. Imaging: Results for orders placed or performed during the hospital encounter of 06/02/24 XR Chest One View (Exam End: 06/03/2024 2:41 AM) Result Value WORKSTATION ID [id number] Impression No radiographically evident acute cardiopulmonary process. Thank you for letting us participate in the care of this patient. If you are a health care provider and have any questions regarding this report, please contact the number below. For patients who have questions please contact the health child adolescent care that requested your imaging first. Cardiac Morphology Function wwo Contrast (Exam End: 06/07/2024 1:10 PM) Result Value WORKSTATION ID [id number] Impression - Findings consistent with an ischemic [...] - Mildly dilated left ventricle size with ptivzpcl-qv-qmeyykdf decreased LV systolic function. LV ejection fraction [...] have questions please contact the health child adolescent care that requested your imaging first. Chest wo Contrast (Generic) (Exam End: 06/03/2024 4:33 PM) Result Value WORKSTATION ID [id number] Impression Cardiomegaly. Biventricular ICD leads in place. Thank you for letting us participate in the care of this patient. If you are a health care provider and have any questions regarding this report, please contact the number below. For patients who have questions please contact the health child adolescent care that requested your imaging first. Chest PA & Lateral (Generic) (Exam End: 06/07/2024 7:03 AM) Result Value WORKSTATION ID [id number] Impression Biventricular ICD leads intact and in [...] have questions please contact the health child adolescent care that requested your imaging first. : Limited echo performed by fellow inventory control clerk to assess LV function. Left ventricle is [...] Patient stable, asymptomatic. Plan to go to cath lab technologist for balloon pump tomorrow, then willgo to [...] CODE Dain Colón MD Cardiology, M1-S2, Pager #[phone] 06/12/24 Associated attestation - Ethel Carrillo MD [...] Ethel Carrillo MD Cardiovascular Medicine Personal Pager [phone] 06/12/2024 9:12 PM * PastorAlejandra, MUSIC PUBLICIST - 06/11/2024 4:21 PM EST Images from [...] too aggressive, suggest ICR 1:6 (rule of [id number]/81 = 6.25). George is up and walking [...] ac, metformin 1000mg BID Alejandra Baumann APRN [facility] Endocrinology Diabetes Management Pager [phone] Weekends please page [phone] 35 minutes were spent over the course [...] PCP: Mauro Berumen MD PCP phone number: [phone] Date of Admission: 06/02/2024 ( Hospital Day 9 days ) Attending:Melida Valdes MD ID: 69 y.o. male with a h/o DM type 2, HTN, HLD, current smoker (2-3 cigarettes/day), HFrEF with anICD for low EF (~30%), and CAD with prior [place] x3 with JENNA placed in [place], Melanoma, PAD, presented to [facility] with 1 hour of retrosternal CP (05/13) while watching TV, found to have STEMI. Active Problems: Active Hospital Problems Diagnosis STEMI (ST elevation myocardial infarction) Cardiac resynchronization therapy defibrillator (TOUR NARRATOR-D) - Medtronic Amplia Cardiomyopathy, ischemic Acute on chronic heart failure with reduced ejection fraction (HFrEF, <= 40%) Coronary artery disease involving [place] coronary artery of [place] heart without angina pectoris Type 2 [...] in the last 7068 hours. Invalid input(s): [id number] Recent Labs 06/11/24 0357 06/11/24 0050 06/10/24 1922 06/10/24 1735 06/10/24 1125 06/10/24 0746 06/10/24 0423 06/10/24 0005 06/09/24 2036 06/09/24 1727 06/09/24 1152 06/09/24 0810 POCGLU 132 144 236* 123 216* 206* 154 125 197 174 211* 209* Heme No results for input(s): LDH, HAPTOGLOBIN, URICACID in the last 168 hours. ABG (Arterial Blood Gas) No results found for: PHART, PO2ART, [id number], [id number] Microbiology: Microbiology Results (Last 30 days) No results found for the last 720 hours. Imaging: Results for orders placed or performed during the hospital encounter of 06/02/24 XR Chest One View (Exam End: 06/03/2024 2:41 AM) Result Value WORKSTATION ID [id number] Impression No radiographically evident acute cardiopulmonary process. Thank you for letting us participate in the care of this patient. If you are a health care provider and have any questions regarding this report, please contact the number below. For patients who have questions please contact the health child adolescent care that requested your imaging first. Cardiac Morphology Function wwo Contrast (Exam End: 06/07/2024 1:10 PM) Result Value WORKSTATION ID [id number] Impression - Findings consistent with an ischemic [...] - Mildly dilated left ventricle size with yeilqxka-kd-pqymxtho decreased LV systolic function. LV ejection fraction [...] have questions please contact the health child adolescent care that requested your imaging first. Chest wo Contrast (Generic) (Exam End: 06/03/2024 4:33 PM) Result Value WORKSTATION ID [id number] Impression Cardiomegaly. Biventricular ICD leads in place. Thank you for letting us participate in the care of this patient. If you are a health care provider and have any questions regarding this report, please contact the number below. For patients who have questions please contact the health child adolescent care that requested your imaging first. Chest PA & Lateral (Generic) (Exam End: 06/07/2024 7:03 AM) Result Value WORKSTATION ID [id number] Impression Biventricular ICD leads intact and in [...] have questions please contact the health child adolescent care that requested your imaging first. : Limited echo performed by fellow inventory control clerk to assess LV function. Left ventricle is [...] Infusions: heparin (porcine) infusion 1,400 Units/hr (06/10/24 8612) PRN Meds:.insulin lispro, glucose 40% oral geL [...] on placing this weekend and transfer to [facility], likely Friday. #ASCVD / STEMI: -Holding Plavix; continue ASA and heparin gtt. -Monitor telmetry -TTE -Viability planning per CT surgery - CT chest (complete) - Carotid duplex bilat (complete) - Cardiac MR (scheduled today Thursday 06/07) - Will need balloon pump prior to CABG on Friday, likely Friday then transfer to [facility] #HFrEF (Ischemic Cardiomyopathy): -Monitor I&O and daily [...] CODE Dain Colón MD Cardiology, M1-S2, Pager #[phone] 06/11/24 Associated attestation - Ethel Carrillo MD [...] Ethel Carrillo MD Cardiovascular Medicine Personal Pager [phone] 06/11/2024 9:35 PM * Hilary Belle - 06/10/2024 12:39 PM EST Nutrition Services Note George Mehta is a 69 y.o. male Reason for intervention: hospital day 9 Nutrition Plan: Continue diet order: 60/60/75 CHO Level 2 Encourage good PO Lasix and Insulin noted Monitor weight Patient scheduled for a hospital day 9 nutrition evaluation. Vice President Of Brand Management attempted to meet with pt at bedside [...] unless consulted in the interim. Hilary Belle Plaster Form Maker * Mariia Montero RN - 06/10/2024 12:23 PM EST I have met with the patient to: discuss discharge planning needs. provide the [facility], Office of Care Management letter from the Alignment Mechanic pertaining to rehab referrals. provide a letter describing our affiliations within the [facility] and educate about their right to choose where referrals are sent. provide a list of Home Health Agencies / Durable Medical Equipment vendors which serve their preferred geographic area. provided patient with CMS Star Quality Rating handout. They have requested referrals to: [facility] [address] [place] [id number] RN / PT Anticipated d/c date: 06/20/24 Note routed to a Die Caster who will communicate referrals to facilities and provide any required information. * Dain Colón MD - 06/10/2024 7:17 AM EST Images from the original note were not included. . Cardiology Progress Note Patient info: Name: George Mehta : 1955 PCP: Mauro Berumen MD PCP phone number: [phone] Date of Admission: 06/02/2024 ( Hospital Day [...] elevation myocardial infarction) Cardiac resynchronization therapy defibrillator (TOUR NARRATOR-D) - Medtronic Amplia Cardiomyopathy, ischemic Acute on chronic heart failure with reduced ejection fraction (HFrEF, <= 40%) Coronary artery disease involving [place] coronary artery of [place] heart without angina pectoris Type 2 [...] in the last 7068 hours. Invalid input(s): [id number] Recent Labs 06/10/24 0423 06/10/24 0005 06/09/24 2036 06/09/24 1727 06/09/24 1152 06/09/24 0810 06/09/24 0440 06/09/24 0034 06/08/24 2027 06/08/24 1616 06/08/24 1235 06/08/24 0810 POCGLU 154 125 197 174 211* 209* 131 186 176 159 226* 190 Heme No results for input(s): LDH, HAPTOGLOBIN, URICACID in the last 168 hours. ABG (Arterial Blood Gas) No results found for: PHART, PO2ART, IDP3VSV, APJ7WYN Microbiology: Microbiology Results (Last 30 days) No results found for the last 720 hours. Imaging: Results for orders placed or performed during the hospital encounter of 06/02/24 XR Chest One View (Exam End: 06/03/2024 2:41 AM) Result Value WORKSTATION ID [id number] Impression No radiographically evident acute cardiopulmonary process. Thank you for letting us participate in the care of this patient. If you are a health care provider and have any questions regarding this report, please contact the number below. For patients who have questions please contact the health child adolescent care that requested your imaging first. Cardiac Morphology Function wwo Contrast (Exam End: 06/07/2024 1:10 PM) Result Value WORKSTATION ID [id number] Impression - Findings consistent with an ischemic [...] - Mildly dilated left ventricle size with iumlirye-ga-bnzrjgnf decreased LV systolic function. LV ejection fraction [...] have questions please contact the health child adolescent care that requested your imaging first. Chest wo Contrast (Generic) (Exam End: 06/03/2024 4:33 PM) Result Value WORKSTATION ID [id number] Impression Cardiomegaly. Biventricular ICD leads in place. Thank you for letting us participate in the care of this patient. If you are a health care provider and have any questions regarding this report, please contact the number below. For patients who have questions please contact the health child adolescent care that requested your imaging first. Chest PA & Lateral (Generic) (Exam End: 06/07/2024 7:03 AM) Result Value WORKSTATION ID [id number] Impression Biventricular ICD leads intact and in [...] have questions please contact the health child adolescent care that requested your imaging first. : Limited echo performed by fellow inventory control clerk to assess LV function. Left ventricle is [...] on placing this weekend and transfer to [facility], likely Friday. #ASCVD / STEMI: -Holding Plavix; continue ASA and heparin gtt. -Consult CT surgery for potential open revascularization. -Monitor telmetry -TTE -Viability planning per CT surgery - CT chest (complete) - Carotid duplex bilat (complete) - Cardiac MR (scheduled today Thursday 06/07) - Will need balloon pump prior to CABG on Friday, likely Friday then transfer to [facility] #HFrEF (Ischemic Cardiomyopathy): -Monitor I&O and daily [...] CODE Dain Colón MD Cardiology, M1-S2, Pager #[phone] 06/10/24 Associated attestation - Mleida Valdes MD - 06/10/2024 4:15 PM EST [...] a lytic and brought directly to the Enterprise Resource Planner. Cardiac catheterization demonstrated multivessel disease with severe [...] who is agreeable Melida Valdes MD Staff Corridor Redevelopment Manager * Cherelle Fregoso, JOSÉ ANTONIO - [...] PCP: Mauro Berumen MD PCP phone number: [phone] Date of Admission: 06/02/2024 ( Hospital Day [...] (HFrEF, <= 40%) Coronary artery disease involving [place] coronary artery of [place] heart without angina pectoris Type 2 [...] in the last 7068 hours. Invalid input(s): [id number] Recent Labs 06/09/24 0440 06/09/24 0034 06/08/24 2027 06/08/24 1616 06/08/24 1235 06/08/24 0810 06/08/24 0409 06/07/24 2357 06/07/24 2005 06/07/24 1631 06/07/24 1105 06/07/24 1103 POCGLU 131 186 176 159 226* 190 151 188 118 174 221* 250* Heme No results for input(s): LDH, HAPTOGLOBIN, URICACID in the last 168 hours. ABG (Arterial Blood Gas) No results found for: PHART, PO2ART, NBG0EHZ, UPW3OTY Microbiology: Microbiology Results (Last 30 days) No results found for the last 720 hours. Imaging: Results for orders placed or performed during the hospital encounter of 06/02/24 XR Chest One View (Exam End: 06/03/2024 2:41 AM) Result Value WORKSTATION ID [id number] Impression No radiographically evident acute cardiopulmonary process. Thank you for letting us participate in the care of this patient. If you are a health care provider and have any questions regarding this report, please contact the number below. For patients who have questions please contact the health child adolescent care that requested your imaging first. Cardiac Morphology Function wwo Contrast (Exam End: 06/07/2024 1:10 PM) Result Value WORKSTATION ID [id number] Impression - Findings consistent with an ischemic [...] - Mildly dilated left ventricle size with eumyfhfk-st-znzryusg decreased LV systolic function. LV ejection fraction [...] have questions please contact the health child adolescent care that requested your imaging first. Chest wo Contrast (Generic) (Exam End: 06/03/2024 4:33 PM) Result Value WORKSTATION ID [id number] Impression Cardiomegaly. Biventricular ICD leads in place. Thank you for letting us participate in the care of this patient. If you are a health care provider and have any questions regarding this report, please contact the number below. For patients who have questions please contact the health child adolescent care that requested your imaging first. Chest PA & Lateral (Generic) (Exam End: 06/07/2024 7:03 AM) Result Value WORKSTATION ID [id number] Impression Biventricular ICD leads intact and in [...] have questions please contact the health child adolescent care that requested your imaging first. Electronically signed by: Stuart [facility] ([phone]), at 06/07/2024 10:45 AM TTE: Limited echo performed by fellow inventory control clerk to assess LV function. Left ventricle is [...] Infusions: heparin (porcine) infusion 1,400 Units/hr (06/08/24 331) PRN Meds:.glucose 40% oral geL OR dextrose [...] CODE Dain Colón MD Cardiology, M1-S2, Pager #[phone] 06/09/24 Associated attestation - Melida Valdes MD [...] a lytic and brought directly to the Enterprise Resource Planner. Cardiac catheterization demonstrated multivessel disease with severe [...] insertion low EF. Melida Valdes MD Staff Corridor Redevelopment Manager * Alejandra Baumann, MUSIC PUBLICIST - 06/08/2024 4:10 PM EST Images from [...] to optimize glucose control Alejandra Baumann APRN [facility] Endocrinology Diabetes Management Pager [phone] Weekends please page [phone] 35 minutes were spent over the course [...] PCP: Mauro Berumen MD PCP phone number: [phone] Date of Admission: 06/02/2024 ( Hospital Day [...] (HFrEF, <= 40%) Coronary artery disease involving [place] coronary artery of [place] heart without angina pectoris Type 2 [...] in the last 7068 hours. Invalid input(s): [id number] Recent Labs 06/08/24 0409 06/07/24 2357 06/07/24 2005 06/07/24 1631 06/07/24 1105 06/07/24 1103 06/07/24 0745 06/07/24 0425 06/07/24 0008 06/06/24 2018 06/06/24 1539 06/06/24 1339 POCGLU 151 188 118 174 221* 250* 175 127 182 143 147 317* Heme No results for input(s): LDH, HAPTOGLOBIN, URICACID in the last 168 hours. ABG (Arterial Blood Gas) No results found for: PHART, PO2ART, OSU6JPD, KMF3HJE Microbiology: Microbiology Results (Last 30 days) No results found for the last 720 hours. Imaging: Results for orders placed or performed during the hospital encounter of 06/02/24 XR Chest One View (Exam End: 06/03/2024 2:41 AM) Result Value WORKSTATION ID [id number] Impression No radiographically evident acute cardiopulmonary process. Thank you for letting us participate in the care of this patient. If you are a health care provider and have any questions regarding this report, please contact the number below. For patients who have questions please contact the health child adolescent care that requested your imaging first. Cardiac Morphology Function wwo Contrast (Exam End: 06/07/2024 1:10 PM) Result Value WORKSTATION ID [id number] Impression - Findings consistent with an ischemic [...] - Mildly dilated left ventricle size with svqekvih-dq-apfhwhsc decreased LV systolic function. LV ejection fraction [...] have questions please contact the health child adolescent care that requested your imaging first. Chest wo Contrast (Generic) (Exam End: 06/03/2024 4:33 PM) Result Value WORKSTATION ID [id number] Impression Cardiomegaly. Biventricular ICD leads in place. Thank you for letting us participate in the care of this patient. If you are a health care provider and have any questions regarding this report, please contact the number below. For patients who have questions please contact the health child adolescent care that requested your imaging first. Chest PA & Lateral (Generic) (Exam End: 06/07/2024 7:03 AM) Result Value WORKSTATION ID [id number] Impression Biventricular ICD leads intact and in [...] have questions please contact the health child adolescent care that requested your imaging first. : Limited echo performed by fellow inventory control clerk to assess LV function. Left ventricle is [...] CODE Dain Colón MD Cardiology, M1-S2, Pager #[phone] 06/08/24 Associated attestation - Melida Valdes MD [...] a lytic and brought directly to the Enterprise Resource Planner. Cardiac catheterization demonstrated multivessel disease with severe [...] Otherwise clinically stable Melida Valdes MD Staff Corridor Redevelopment Manager * Ross Manuel PA - 06/07/2024 12:00 PM EST Cardiac Electrophysiology CIED Interrogation/Programming Note Asked by MRI staff to evaluate and program Medtronic TOUR NARRATOR-D to allow for MR imaging. Patient Active Problem List Diagnosis ','STEMI (ST elevation myocardial infarction) Acute on chronic heart failure with reduced ejection fraction (HFrEF, <= 40%) Coronary artery disease involving [place] coronary artery of [place] heart without angina pectoris Type 2 diabetes mellitus Device Data: [employer] MRI Quad TOUR NARRATOR-D [id number] #[id number] 06/16/2019 RA Medtronic 4076 CapSureFix Novus [id number] 06/16/2019 RV Medtronic [id number] 06/16/2019 LV Medtronic 4298 Attain Performa MRI [id number] 06/16/2019 DDD @ 50/130/130 Adaptive Bi-V and LV VF >188bpm ATP, 35j x6 FVT >188-222bpm burst 2, 35jx5 VT Battery longevity: 2.5yrs; charge time 4s P wave: 2.3mV R wave: >20.0mV Atrial impedance: 458 ohms RV impedance: 646 ohms LV impedance: 722 ohms Atrial threshold: 0.5V @ 0.4ms RV threshold: LV threshold: 1.75V @ 0.4ms AP 0.2% HEALTH ANALYST 97.7% AT/AF 0% Impression and Plan: 1. Interrogated device to determine suitability for MRI 2. Programmed to MRI safe mode - VOO @ 70 3. Scan performed 4. Programming restored to baseline settings 5. Reinterrogated to verify appropriate function and settings 6. Device follow up as previously scheduled Provider: HENOK Meyer EP Consult attending physician: Libby Barton MD EP Consult positional pager #[phone](EPMD) EP Device interrogation positional pager # [phone] * Dain Colón MD - 06/07/2024 7:09 AM EST Images from the original note were not included. . Cardiology Progress Note Patient info: Name: George Mehta : 1955 PCP: Mauro Berumen MD PCP phone number: [phone] Date of Admission: 06/02/2024 ( Hospital Day [...] (HFrEF, <= 40%) Coronary artery disease involving [place] coronary artery of [place] heart without angina pectoris Type 2 [...] in the last 7068 hours. Invalid input(s): [id number] Recent Labs 06/07/24 0425 06/07/24 0008 06/06/24 2018 06/06/24 1539 06/06/24 1339 06/06/24 1134 06/06/24 0757 06/06/24 0653 06/05/24 2231 06/05/24 1622 06/05/24 1134 06/05/24 0727 POCGLU 127 182 143 147 317* 264* 195 187 238* 205* 211* 166 Heme No results for input(s): LDH, HAPTOGLOBIN, URICACID in the last 168 hours. ABG (Arterial Blood Gas) No results found for: PHART, PO2ART, ZFA1LQJ, VVQ7OAR Microbiology: Microbiology Results (Last 30 days) No results found for the last 720 hours. Imaging: Results for orders placed or performed during the hospital encounter of 06/02/24 XR Chest One View (Exam End: 06/03/2024 2:41 AM) Result Value WORKSTATION ID [id number] Impression No radiographically evident acute cardiopulmonary process. Thank you for letting us participate in the care of this patient. If you are a health care provider and have any questions regarding this report, please contact the number below. For patients who have questions please contact the health child adolescent care that requested your imaging first. Chest wo Contrast (Generic) (Exam End: 06/03/2024 4:33 PM) Result Value WORKSTATION ID [id number] Impression Cardiomegaly. Biventricular ICD leads in place. Thank you for letting us participate in the care of this patient. If you are a health care provider and have any questions regarding this report, please contact the number below. For patients who have questions please contact the health child adolescent care that requested your imaging first. : Limited echo performed by fellow inventory control clerk to assess LV function. Left ventricle is [...] Dain Colón MD (PGY-1) Cardiology, M1-S2, Pager #[phone] 06/07/24 Associated attestation - Melida Valdes MD [...] a lytic and brought directly to the Enterprise Resource Planner. Cardiac catheterization demonstrated multivessel disease with severe [...] for further guidance. Melida Valdes MD Staff Corridor Redevelopment Manager * Dain Colón MD - 06/06/2024 7:17 AM EST Images from the original note were not included. . Cardiology Progress Note Patient info: Name: George Mehta : 1955 PCP: Mauro Berumen MD PCP phone number: [phone] Date of Admission: 06/02/2024 ( Hospital Day [...] (HFrEF, <= 40%) Coronary artery disease involving [place] coronary artery of [place] heart without angina pectoris Type 2 [...] in the last 7068 hours. Invalid input(s): [id number] Recent Labs 06/06/24 0653 06/05/24 2231 06/05/24 1622 06/05/24 1134 06/05/24 0727 06/04/24 1943 06/04/24 1526 06/04/24 1109 06/04/24 0711 06/03/24 2005 06/03/24 1748 06/03/24 1114 POCGLU 187 238* 205* 211* 166 175 154 188 182 136 191 166 Heme No results for input(s): LDH, HAPTOGLOBIN, URICACID in the last 168 hours. ABG (Arterial Blood Gas) No results found for: PHART, PO2ART, RBQ4TPL, XQI3WED Microbiology: Microbiology Results (Last 30 days) No results found for the last 720 hours. Imaging: Results for orders placed or performed during the hospital encounter of 06/02/24 XR Chest One View (Exam End: 06/03/2024 2:41 AM) Result Value WORKSTATION ID [id number] Impression No radiographically evident acute cardiopulmonary process. Thank you for letting us participate in the care of this patient. If you are a health care provider and have any questions regarding this report, please contact the number below. For patients who have questions please contact the health child adolescent care that requested your imaging first. Chest wo Contrast (Generic) (Exam End: 06/03/2024 4:33 PM) Result Value WORKSTATION ID [id number] Impression Cardiomegaly. Biventricular ICD leads in place. Thank you for letting us participate in the care of this patient. If you are a health care provider and have any questions regarding this report, please contact the number below. For patients who have questions please contact the health child adolescent care that requested your imaging first. : Limited echo performed by fellow inventory control clerk to assess LV function. Left ventricle is [...] Dain Colón MD (PGY-1) Cardiology, M1-S2, Pager #[phone] 06/06/24 Associated attestation - Melida Valdes MD [...] a lytic and brought directly to the Enterprise Resource Planner. Cardiac catheterization demonstrated multivessel disease with severe [...] management. Help appreciated Melida Valdes MD Staff Corridor Redevelopment Manager * Frederick Dunn MD - 06/05/2024 8:13 AM EDT Images from the original note were not included. . Cardiology Progress Note Patient info: Name: George Mehta : 1955 PCP: Mauro Berumen MD PCP phone number: [phone] Date of Admission: 06/02/2024 ( Hospital Day [...] in the last 7068 hours. Invalid input(s): [id number] Recent Labs 06/05/24 1134 06/05/24 0727 06/04/24 1943 06/04/24 1526 06/04/24 1109 06/04/24 0711 06/03/24 2005 06/03/24 1748 06/03/24 1114 06/03/24 0754 06/02/24 2331 POCGLU 211* 166 175 154 188 182 136 191 166 195 156 Heme No results for input(s): LDH, HAPTOGLOBIN, URICACID in the last 168 hours. ABG (Arterial Blood Gas) No results found for: PHART, PO2ART, GFO3YEO, QGU6UBG Microbiology: Microbiology Results (Last 30 days) No results found for the last 720 hours. Imaging: Results for orders placed or performed during the hospital encounter of 06/02/24 XR Chest One View (Exam End: 06/03/2024 2:41 AM) Result Value WORKSTATION ID [id number] Impression No radiographically evident acute cardiopulmonary process. Thank you for letting us participate in the care of this patient. If you are a health care provider and have any questions regarding this report, please contact the number below. For patients who have questions please contact the health child adolescent care that requested your imaging first. Chest wo Contrast (Generic) (Exam End: 06/03/2024 4:33 PM) Result Value WORKSTATION ID [id number] Impression Cardiomegaly. Biventricular ICD leads in place. Thank you for letting us participate in the care of this patient. If you are a health care provider and have any questions regarding this report, please contact the number below. For patients who have questions please contact the health child adolescent care that requested your imaging first. : Limited echo performed by fellow inventory control clerk to assess LV function. Left ventricle is [...] all the information they need regarding the TOUR NARRATOR-D.Plan for MRI tomorrow. Starting 40 mg IV [...] a lytic and brought directly to the Enterprise Resource Planner. Cardiac catheterization demonstrated multivessel disease with severe [...] maintenance of 40. Melida Valdes MD Staff Corridor Redevelopment Manager * Migel Javier RN - 06/05/2024 6:21 AM EDT Implanted device record scanned into: Chart Review-->Media-->External Cardiology-->03/25/2024. Medtronic [facility] MRI Quad CRTD [id number] Serial #: [id number] DDD mode A + Bi/V Rates 50-130 Migel Javier RN * Dain Colón MD - 06/04/2024 11:16 AM EDT Implant Records Requested Type: TOUR NARRATOR-D Supervisor Gate Services: Medtronic Product: [id number] Amplia MRI MRI compatibility: Compatible for 1.5-3 T Model #: [id number] Placed at: [place], [place] Records requested for MRI: 1. Operative report 2. Implant log I requested that these records be sent to our MRI department, Dain Colón MD 06/04/24 11:58 AM * Dain Colón MD - 06/04/2024 6:57 AM EDT Images from the original note were not included. . Cardiology Progress Note Patient info: Name: George Mehta : 1955 PCP: Mauro Berumen MD PCP phone number: [phone] Date of Admission: 06/02/2024 ( Hospital Day [...] in the last 7068 hours. Invalid input(s): AINAKONQZRO4G Recent Labs 06/03/24 2005 06/03/24 1748 06/03/24 1114 06/03/24 0754 06/02/24 2331 POCGLU 136 191 166 195 156 Heme No results for input(s): LDH, HAPTOGLOBIN, URICACID in the last 168 hours. ABG (Arterial Blood Gas) No results found for: PHART, PO2ART, KPH5HYH, SDB5HXD Microbiology: Microbiology Results (Last 30 days) No results found for the last 720 hours. Imaging: Results for orders placed or performed during the hospital encounter of 06/02/24 XR Chest One View (Exam End: 06/03/2024 2:41 AM) Result Value WORKSTATION ID [id number] Impression No radiographically evident acute cardiopulmonary process. Thank you for letting us participate in the care of this patient. If you are a health care provider and have any questions regarding this report, please contact the number below. For patients who have questions please contact the health child adolescent care that requested your imaging first. Chest wo Contrast (Generic) (Exam End: 06/03/2024 4:33 PM) Result Value WORKSTATION ID [id number] Impression Cardiomegaly. Biventricular ICD leads in place. Thank you for letting us participate in the care of this patient. If you are a health care provider and have any questions regarding this report, please contact the number below. For patients who have questions please contact the health child adolescent care that requested your imaging first. : Limited echo performed by fellow inventory control clerk to assess LV function. Left ventricle is [...] -Lasix 40 mg IV given in the cath lab technologist; assess diuretic response, consider re-dosing -Continue carvedilol; [...] a lytic and brought directly to the Enterprise Resource Planner. Cardiac catheterization demonstrated multivessel disease with severe [...] Friday -Diuresis with Jovanni Valdes MD Staff Corridor Redevelopment Manager * Fatmata Mcallister PT - 06/03/2024 3:29 [...] vs PCI) Fatmata Mcallister PT, MSPT Pager [phone] Inpatient Physical Therapy * Marlin Gómez MD [...] Marlin Gómez MD Cardiology S2, Pager # [phone] 06/03/2024 * Delroy Fofana MD - 06/03/2024 7:16 AM EDT Images from the original note were not included. . Cardiology Progress Note Patient info: Name: George Mehta : 1955 PCP: Mauro Berumen MD PCP phone number: [phone] Date of Admission: 06/02/2024 ( Hospital Day [...] in the last 7068 hours. Invalid input(s): [id number] Recent Labs 06/02/24 2331 POCGLU 156 Heme No results for input(s): LDH, HAPTOGLOBIN, URICACID in the last 168 hours. ABG (Arterial Blood Gas) No results found for: PHART, PO2ART, RGL4NLM, VLX7EFV Microbiology: Microbiology Results (Last 30 days) No results found for the last 720 hours. Imaging: Results for orders placed or performed during the hospital encounter of 06/02/24 XR Chest One View (Exam End: 06/03/2024 2:41 AM) Result Value WORKSTATION ID [id number] Impression No radiographically evident acute cardiopulmonary process. Thank you for letting us participate in the care of this patient. If you are a health care provider and have any questions regarding this report, please contact the number below. For patients who have questions please contact the health child adolescent care that requested your imaging first. : Limited echo performed by fellow inventory control clerk to assess LV function. Left ventricle is [...] -Lasix 40 mg IV given in the cath lab technologist; assess diuretic response, consider re-dosing -Continue carvedilol; [...] plan of care per Dain Colón MD (caregivers non medical). Please refer to his note above for details. Very pleasant 69 year old male but he is obese, diabetic, and he is a SMOKER with known prior CAD and moderately reduced LVEF (30%). He has a pacer. History of surgical resection of melanoma on his head. The patient was transferred overnight to [facility] as a STEMI. He was treated initially with a lytic (TNK) and brought directly to the cath lab technologist. The cath demonstrated 3VD with diffuse disease [...] - 06/13/2024 10:58 AM EST ICU Blue (#[id number]) H&P Patient info: Name: George Mehta : 1955 PCP: Mauro Berumen MD PCP phone number: [phone] Date of Admission: 06/02/2024 ( Hospital Day 11 days ) Attending:Haja Byrnes MD ID: George Mehta is a 69 y.o. male with a h/o DM type 2, HTN, HLD, current smoker (2-3 cigarettes/day), HFrEF with an ICD for low EF (~30%), and CAD with prior DE x3 with JENNA placed in [place], [facility], [facility], presented to [facility] with 1 hour of retrosternal CP (05/13) while watching TV, foundto have STEMI. HPI: Shahnaz Scanlon H&P 06/02 69 y.o. male with a h/o DM type 2, HTN, HLD, current smoker (2-3 cigarettes/day), HFrEF with an ICD for low EF (~30%), and CAD with prior DE x3 with JENNA placed in [place], [facility], [facility], presented to [facility] with 1 hour of retrosternal CP (05/13) while watching TV. CP was non-radiating, not asso ciated with diaphoresis, nausea, or SOB. Denies orthopnea, MARTÍNEZ, palpitations, or LE edema. ECG showed findings consistent with anterior STEMI. He received TNK and was transferred for PCI. Coronary angiography showed a small, non-dominant RCA with sjyd-pn-thfjtcvf disease and a dominant,heavily calcified left system with prior stents in the LAD and OM. The LM bifurcates into the LAD and LCX, both heavily calcified. The proximal LCX has a 75% calcified, aneurysmal lesion, and an 80% calcified lesion distally before a large OM2. OM1 is a LOCAL OPERATOR with in-stent restenosis, filling retrograde via [...] 40 mg Lasix was administered in the cath lab technologist. Cardiac surgery was consulted and plan for [...] Blood Gas) No results for input(s): PHART, SJJ2CBI, PO2ART, LYK9TDQ, LACTATEVEN, SVS2BFM, PFRATIOART2 in the last 168 hours. VBG (Venous Blood Gas) Recent Labs 06/10/24 1742 PHVEN 7.34 PO2VEN 24 ZTF8SEO 27.4 Mixed Venous Sat No results for input(s): S8MSYH3 in the last 168 hours. Intake/Output Summary [...] in the last 7068 hours. Invalid input(s): [id number] Recent Labs 06/13/24 0741 06/13/24 0325 06/12/24 2353 06/12/24 1932 06/12/24 1541 06/12/24 1121 06/12/24 0800 06/12/24 0425 06/11/24 2356 06/11/24 2025 06/11/24 1624 06/11/24 1108 POCGLU 126 99 141 158 113 207* 169 132 135 210* 81 233* Heme No results for input(s): LDH, HAPTOGLOBIN, URICACID in the last 168 hours. ABG (Arterial Blood Gas) No results for input(s): PHART, OIK1REO, PO2ART, IUL5GWX, LACTATEVEN, DYW8MSL, PFRATIOART2 in the last 168 hours. VBG (Venous Blood Gas) Recent Labs 06/10/24 1742 PHVEN 7.34 PO2VEN 24 EEP3WII 27.4 Mixed Venous Sat No results for input(s): R0LXZR6 in the last 168 hours. Microbiology: Microbiology [...] Plan for CABG 06/14. Patient NPO at [place]. #ASCVD / STEMI: -Holding Plavix; continue ASA [...] (Give Meds) Daily Healthy Menu Choices/Cardiac diet ([facility]-Diet) DVT Prophylaxis: SCD GI [...] is in the chart Rebeca Prado MD Commodity Supervisor PGY6 [phone] * Shahnaz Scanlon MD [...] prior DE x3 with JENNA placed in [place], [facility], PAD, presented to [facility] with 1 hour of retrosternal CP (05/13) while watching TV. CP was non-radiating, not assoc iated with diaphoresis, nausea, or SOB. Denies orthopnea, MARTÍNEZ, palpitations, or LE edema. ECG showed findings consistent with anterior STEMI. He received TNK and was transferred for PCI. Coronary angiography showed a small, non-dominant RCA with susg-vf-hxdkbksi disease and a dominant,heavily calcified left system with prior stents in the LAD and OM. The LM bifurcates into the LAD and LCX, both heavily calcified. The proximal LCX has a 75% calcified, aneurysmal lesion, and an 80% calcified lesion distally before a large OM2. OM1 is a LOCAL OPERATOR with in-stent restenosis, filling retrograde via [...] 40 mg Lasix was administered in the cath lab technologist. Past Medical History: As per HPI Significant [...] Affect: Mood normal. Behavior: Behavior normal. Diagnostics: [facility] 06/02/2024 Coronary angiography revealed small non [...] -Lasix 40 mg IV given in the cath lab technologist; assess diuretic response. -Continue carvedilol; hold Entresto [...] & Follow-up Care: Contact information for follow-up [facility] [address] [facility] [address] Cardiac Rehab, [address] [facility] [address] JAMIE GRAMAJO confirmed with [facility] that they [...] Roberts RN - 06/18/2024 10:50 AM EST [facility] CARDIAC REHABILITATION George Mehta [...] , Mandy, and 2 dogs Zuleika & Kalye). Current Living Arrangements: home/apartment/condo. Accessibility Concerns: 1st [...] Agency/Support Group Needs: Homecare agency Agency Choices: [facility]: Medication checks, Registered Nurse, Physical Therapy Agency Referrals: pending clinical course and PT/OT recs [facility] [address] [facility] [address] PHONE: [phone] FAX: [phone] Transportation: family or friend will provide Barriers [...] recs Patient is insured through: Primary Insurance: [facility] [employer] MEDICARE Payor: [facility] MANAGED MEDICARE / Plan: [facility] MANAGED MEDICARE COMPLETE / Product Type: *No Product type* / Secondary Insurance: N/A Plan for discharge is: Home w/ Services Outpatient Agency/Support Group Needs: Homecare agency Agency Choices: [facility]: Medication checks, Registered Nurse, Physical Therapy Agency Referrals: pending clinical course and PT/OT recs [facility] [address] [place] [address] PHONE: [phone] FAX: [phone] Transportation: family or friend will provide Barriers [...] Loja MD - 06/14/2024 8:48 AM EST [facility] Operative Note Patient Name: George Mehta : [id number] MR#: [id number] Case Date: 06/14/2024 Surgeon: Surgeons and Role: * Bobby Loja MD - Primary * Rashi Bass PA - Physician Marketing Campaign Analyst Preoperative diagnosis: CAD, MARIALUISA flickering mass on [...] Heart, Atrial Appendage, Left SURGICAL PATHOLOGY Bobby Ljoa MD 06/14/2024 1054 A : Blood Blood, [...] procedures today and tomorrow. Report called to [facility] - all belongings with patient. 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 INDIVIDUALIZED FALL PREVENTION [...] No Patient is insured through: Primary Insurance: [facility] MANAGED MEDICARE Payor: [facility] MANAGED MEDICARE / Plan: [facility] MANAGED MEDICARE COMPLETE / Product Type: *No Product type* / Secondary Insurance: N/A Plan for discharge is: Home w/ Services Outpatient Agency/Support Group Needs: Homecare agency, Agency Choices: [facility] Home Health Services: Medication checks, Registered Nurse, Physical Therapy Agency Referrals: [facility] [address] [place] [address] RN / PT Routed 06/10 Transportation: family [...] with home health services when medically ready. metal mockup maker/Sample Dye Mixer will continue to follow patient???s progress and remain available if situation changes for coordination of care, psychosocial support and/or discharge planning. Anticipated Date of Discharge: 06/18/2024 Mariia Montero RN Extension [phone] * Plan of Care - Migel Javier [...] No Patient is insured through: Primary Insurance: [email or web address] MANAGED MEDICARE Payor: [email or web address] MANAGED MEDICARE / Plan: [facility] [employer] MEDICARE COMPLETE / Product Type: *No Product [...] consult for high risk PCI vs CABG metal mockup maker/Sample Dye Mixer will continue to follow patient???s progress and remain available if situation changes for coordination of care, psychosocial support and/or discharge planning. Anticipated Date of Discharge: 06/11/2024 Mariia Montero RN Extension [phone] * Plan of Care - Becca Hope [...] CABG and to provide a review of halfway diabetes care. Diabetes History: George Mehta has [...] Breakfast- varies - eggs with khoury or estonian muffin Lunch- turkey sandwich Supper- meat and [...] Infusions: heparin (porcine) infusion 1,400 Units/hr (06/06/24 6768) PRN: insulin lispro, potassium chloride ER OR [...] Baumann APRN Endocrinology Diabetes Management Service Pager: [phone] Weekends please page [phone] 80 minute visit was spent in counseling [...] ASA, plavix, heparin gtt, and sent to [facility] for coronary angiography. LHC demonstrated severely calcified left coronary system with notable LCx 75/80% lesions and LOCAL OPERATOR OM1 with ISR with collateral retrograde [...] is large. OM1 appears to be a LOCAL OPERATOR, with in stentrestenosis and fills retrograde [...] y.o. male admitted with STEMI s/p TNK, [facility] showing multivessel CAD including ISR, no [...] to our service. Signed: Paula Treviño PA-C [facility] Section of Cardiac Surgery Date: 06/03/2024 * Initial Assessments - Catina Estrada MSW - 06/03/2024 10:32 AM EDT Office of Care Management Initial Assessment CHINA Humphrey reviewed record and discussed patient with Care Team. 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 Admitted From: Transfer from another hospital Location: [facility] Reason for Hospitalization: Chest Pain while watching TV, doctors said I had a heart attack Past medical History: No past medical history on file. Hospitalizations Within the Past 30 Days: no previous admission in last 30 days Current Decision-Making Capacity: Self If AD's have not been completed the following surrogate would be surrogate decision maker per [place] surrogate decision making law. (Only good for 180 days) Any patient receiving care in [place] must abide by [place] law. The hierarchy for surrogate decision making [...] (i) The agent with financial power of state attorney or a conservator appointed in accordance [...] has the electric, gas, oil, or water Appetise threatened to shut off services in your [...] the bathroom) Home Address confirmed as: [address] [place] [address] [address] [facility] [address] Social & Family Supports: All names listed [...] Pertinent/Service Specific Information: Health/Prescription Coverage: Primary Insurance: [facility] MEDICARE Payor: [facility] MEDICARE / Plan: [employer] MANAGED MEDICARE COMPLETE / Product Type: *No Product type* / Secondary Insurance: N/A ; Prescription Coverage: Yes Preferred Pharmacy: [id number] - [facility], [place] - [address] [facility] [address] [place] [address] Status: Patient is a : No Primary Care Provider confirmed: Mauro Berumen MD [phone] Patient/Caregiver Goals of Treatment: Potential Needs for [...] care as indicated. CHINA Min Cardiology, [phone]. [phone] * Brief Op Note - Agneles Gaxiola PA - 06/03/2024 12:23 AM EDT Preliminary Cardiac Catheterization Procedure Note: Patient Name: George Mehta : [id number] MR#: [id number] Case Date: 06/02/2024 - 06/03/2024 Loom Inspector: Surgeons and Role: * Nuha Shen MD - Primary * Angeles Gaxiola PA - Physician Marketing Campaign Analyst Preoperative diagnosis: STEMI Postoperative diagnosis: * STEMI * Procedure(s) performed: RRA access [facility] Coronary angiogram IVUS LM/LAD/LCX Access: 6 [...] prior DE and 3 stents historically (in [place]) who presented to [facility] [...] is large. OM1 appears to be a LOCAL OPERATOR, with in stentrestenosis and fills retrograde [...] receive 40 mg of lasix in the cath lab technologist. Recommendations: surgical consult for possible open revascularization; [...] 2:00 PM EST Office Visit Cardiology at [address] [address] Moi Falcon MD [facility] [place] [address] Scheduled Orders Name Type Priority Associated Diagnoses [...] 7:20 AM EST Coronary artery disease involving [place] coronary artery of [place] heart without angina pectoris POC, GLUCOSE Routine [...] * POC, GLUCOSE (06/21/2024 3:51 AM EST) [facility] Signature Glucometer, POC 142 65 - 199 mg/dL 06/21/2024 3:51 AM EST [facility] Comment:Supplemental ranges: <140 mg/dL before meals <180 mg/dL all other times of the day. Blood CAPILLARY BLOOD / Unknown 06/21/2024 3:51 AM EST 06/21/2024 3:51 AM EST Bobby Loja MD POINT OF CARE TEST O NIKA [facility] [place] [address] * (ABNORMAL) Basic Metabolic Panel (06/21/2024 2:09 AM EST) Glucose 169 65 - 199 mg/dL 06/21/2024 3:10 AM [facility] Comment:Glucose Concentratio [...] APRN CHEMISTRY ORDERABL ES Performing Organization Address City/[facility]/ZIP Co de Phone Number [facility] [place] [address] * POC, GLUCOSE (06/21/2024 12:04 AM EST) Glucometer, POC 157 65 - 199 mg/dL 06/21/2024 12:04 AM EST [facility] Comment:Supplemental ranges: <140 mg/dL before meals <180 mg/dL all other times of the day. Blood CAPILLARY BLOOD / Unknown 06/21/2024 12:04 AM EST 06/21/2024 12:04 AM EST Bobby Loja MD POINT OF CARE TEST O NIKA Performing Organization Address [facility] Co de Phone Number [facility] [place] [place] [address] * POC, GLUCOSE (06/20/2024 11:14 PM EST) Glucometer, POC 67 65 - 199 mg/dL 06/20/2024 11:14 PM EST [facility] Comment:Supplemental ranges: <140 mg/dL before meals <180 mg/dL all other times of the day. Blood CAPILLARY BLOOD / Unknown 06/20/2024 11:14 PM EST 06/20/2024 11:14 PM EST Bobby Loja MD POINT OF CARE TEST O NIKA Performing Organization Address City/[facility]/ZIP Co de Phone Number [facility] [place] [address] * POC, GLUCOSE (06/20/2024 7:16 PM EST) Glucometer, POC 132 65 - 199 mg/dL 06/20/2024 7:16 PM EST [facility] Comment:Supplemental ranges: <140 mg/dL before meals <180 mg/dL all other times of the day. Blood CAPILLARY BLOOD / Unknown 06/20/2024 7:16 PM EST 06/20/2024 7:16 PM EST Bobby Loja MD POINT OF CARE TEST O NIKA [facility] [place] [place] [address] * POC, GLUCOSE (06/20/2024 3:39 PM EST) Glucometer, POC 124 65 - 199 mg/dL 06/20/2024 3:40 PM EST [facility] Comment:Supplemental ranges: <140 mg/dL before meals <180 mg/dL all other times of the day. Blood CAPILLARY BLOOD / Unknown 06/20/2024 3:39 PM EST 06/20/2024 3:40 PM EST Bobby Loja MD POINT OF CARE TEST O NIKA Performing Organization Address City/[facility]/ZIP Co de Phone Number [facility] [place] [address] * POC, GLUCOSE (06/20/2024 12:02 PM EST) Glucometer, POC 173 65 - 199 mg/dL 06/20/2024 12:03 PM EST [facility] Comment:Supplemental ranges: <140 mg/dL before meals <180 mg/dL all other times of the day. Blood CAPILLARY BLOOD / Unknown 06/20/2024 12:02 PM EST 06/20/2024 12:03 PM EST Bobby Loja MD POINT OF CARE TEST O NIKA [facility] [place] [place] [address] * POC, GLUCOSE (06/20/2024 7:10 AM EST) Glucometer, POC 130 65 - 199 mg/dL 06/20/2024 7:11 AM EST [facility] Comment:Supplemental ranges: <140 mg/dL before meals <180 mg/dL all other times of the day. Blood CAPILLARY BLOOD / Unknown 06/20/2024 7:10 AM EST 06/20/2024 7:11 AM EST Bobby Loja MD POINT OF CARE TEST O RDERABLES [facility] [place] [place] [address] * (ABNORMAL) Basic Metabolic Panel (06/20/2024 2:28 [...] mL/min/1. 73 m?? 06/20/2024 3:06 AM EST [facility] Comment: This patient's estimated [...] APRN CHEMISTRY ORDERABL ES Performing Organization Address City/[facility]/ZIP Co de Phone Number [facility] [place] [address] * POC, GLUCOSE (06/20/2024 12:32 AM EST) Glucometer, POC 86 65 - 199 mg/dL 06/20/2024 12:32 AM EST [facility] Comment:Supplemental ranges: <140 mg/dL before meals <180 mg/dL all other times of the day. Blood CAPILLARY BLOOD / Unknown 06/20/2024 12:32 AM EST 06/20/2024 12:32 AM EST Bobby Loja MD POINT OF CARE TEST O RDERABLES [facility] [place] [address] * (ABNORMAL) POC, GLUCOSE (06/20/2024 12:02 AM EST) Glucometer, POC 59(L) 65 - 199 mg/dL 06/20/2024 12:02 AM EST [facility] Comment:Supplemental ranges: <140 mg/dL before meals <180 mg/dL all other times of the day. Blood CAPILLARY BLOOD / Unknown 06/20/2024 12:02 AM EST 06/20/2024 12:03 AM EST Narrative Authorizing Provider Result Saranya Loja MD POINT OF CARE TEST O NIKA Performing Organization Address City/[facility] Co de Phone Number [facility] [place] [address] * POC, GLUCOSE (06/19/2024 8:15 PM EST) Glucometer, POC 131 65 - 199 mg/dL 06/19/2024 8:15 PM EST [facility] Comment:Supplemental ranges: <140 mg/dL before meals <180 mg/dL all other times of the day. Blood CAPILLARY BLOOD / Unknown 06/19/2024 8:15 PM EST 06/19/2024 8:15 PM EST Bobby Loja MD POINT OF CARE TEST Abimael MAHER Performing Organization Address [facility] Co de Phone Number [facility] [place] [address] * POC, GLUCOSE (06/19/2024 6:01 PM EST) Glucometer, POC 129 65 - 199 mg/dL 06/19/2024 6:01 PM EST [facility] Comment:Supplemental ranges: <140 mg/dL before meals <180 mg/dL all other times of the day. Blood CAPILLARY BLOOD / Unknown 06/19/2024 6:01 PM EST 06/19/2024 6:02 PM EST Narrative Authorizing Provider Result Saranya Loja MD POINT OF CARE TEST O NIKA Performing Organization Address City/[facility] Co de Phone Number [facility] [place] [address] * POC, GLUCOSE (06/19/2024 4:51 PM EST) Glucometer, POC 155 65 - 199 mg/dL 06/19/2024 4:51 PM EST [facility] Comment:Supplemental ranges: <140 mg/dL before meals <180 mg/dL all other times of the day. Blood CAPILLARY BLOOD / Unknown 06/19/2024 4:51 PM EST 06/19/2024 4:51 PM EST Bobby Loja MD POINT OF CARE TEST O NIKA Performing Organization Address City/[facility]/ZIP Co de Phone Number [facility] [place] [address] * POC, GLUCOSE (06/19/2024 12:37 PM EST) Glucometer, POC 136 65 - 199 mg/dL 06/19/2024 12:37 PM EST [facility] Comment:Supplemental ranges: <140 mg/dL before meals <180 mg/dL all other times of the day. Blood CAPILLARY BLOOD / Unknown 06/19/2024 12:37 PM EST 06/19/2024 12:37 PM EST Bobby Loja MD POINT OF CARE TEST O NIKA Performing Organization Address City/[facility]/ZIP Co de Phone Number [facility] [place] [address] * POC, GLUCOSE (06/19/2024 11:20 AM EST) Glucometer, POC 185 65 - 199 mg/dL 06/19/2024 11:21 AM EST [facility] Comment:Supplemental ranges: <140 mg/dL before meals <180 mg/dL all other times of the day. Blood CAPILLARY BLOOD / Unknown 06/19/2024 11:20 AM EST 06/19/2024 11:21 AM EST Bobby Loja MD POINT OF CARE TEST O NIKA [facility] [place] [place] [address] * POC, GLUCOSE (06/19/2024 7:21 AM EST) Glucometer, POC 125 65 - 199 mg/dL 06/19/2024 7:21 AM EST [facility] Comment:Supplemental ranges: <140 mg/dL before meals <180 mg/dL all other times of the day. Blood CAPILLARY BLOOD / Unknown 06/19/2024 7:21 AM EST 06/19/2024 7:22 AM EST Bobby Loja MD POINT OF CARE TEST O NIKA [facility] [place] [address] * POC, GLUCOSE (06/19/2024 4:52 AM EST) Glucometer, POC 125 65 - 199 mg/dL 06/19/2024 4:52 AM EST [facility] Comment:Supplemental ranges: <140 mg/dL before meals <180 mg/dL all other times of the day. Blood CAPILLARY BLOOD / Unknown 06/19/2024 4:52 AM EST 06/19/2024 4:52 AM EST Bobby Loja MD POINT OF CARE TEST O NIKA Performing Organization Address [facility]/ZIP Co de Phone Number [facility] [place] [address] * POC, GLUCOSE (06/19/2024 4:13 AM EST) Glucometer, POC 67 65 - 199 mg/dL 06/19/2024 4:13 AM EST [facility] Comment:Supplemental ranges: <140 mg/dL before meals <180 mg/dL all other times of the day. Blood CAPILLARY BLOOD / Unknown 06/19/2024 4:13 AM EST 06/19/2024 4:13 AM EST Bobby Loja MD POINT OF CARE TEST O NIKA [facility] [place] [address] * (ABNORMAL) POC, GLUCOSE (06/19/2024 3:48 AM EST) Glucometer, POC 51(LLL) 65 - 199 mg/dL 06/19/2024 3:48 AM EST [facility] Comment:Supplemental ranges: <140 mg/dL before meals <180 mg/dL all other times of the day. Blood CAPILLARY BLOOD / Unknown 06/19/2024 3:48 AM EST 06/19/2024 3:48 AM EST Bobby Loja MD POINT OF CARE TEST O RDERABLES [facility] [place] [address] * (ABNORMAL) Basic Metabolic Panel (06/19/2024 3:44 AM EST) Glucose 53(LLL) 65 - 199 mg/dL 06/19/2024 4:48 AM EST [facility] Comment:Glucose Concentratio n >=200 [...] - 10.5 mg/dL 06/19/2024 4:48 AM EST [facility] Est Glomerular Filtration Rate - Male 61 mL/min/1. 73 m?? 06/19/2024 4:48 AM EST [facility] Comment: This patient's estimated [...] APRN CHEMISTRY ORDERABL ES Performing Organization Address City/[facility]/ZIP Co de Phone Number [facility] [place] [place] [address] * POC, GLUCOSE (06/19/2024 12:23 AM EST) Glucometer, POC 82 65 - 199 mg/dL 06/19/2024 12:23 AM EST [facility] Comment:Supplemental ranges: <140 mg/dL before meals <180 mg/dL all other times of the day. Blood CAPILLARY BLOOD / Unknown 06/19/2024 12:23 AM EST 06/19/2024 12:23 AM EST Bobby Loja MD POINT OF CARE TEST O RDERABLES [facility] [place] [place] [address] * POC, GLUCOSE (06/18/2024 11:08 PM EST) Glucometer, POC 73 65 - 199 mg/dL 06/18/2024 11:08 PM EST [facility] Comment:Supplemental ranges: <140 mg/dL before meals <180 mg/dL all other times of the day. Blood CAPILLARY BLOOD / Unknown 06/18/2024 11:08 PM EST 06/18/2024 11:08 PM EST Bobby Loja MD POINT OF CARE TEST O NIKA [facility] [place] [place] [address] * POC, GLUCOSE (06/18/2024 7:32 PM EST) Glucometer, POC 167 65 - 199 mg/dL 06/18/2024 7:32 PM EST [facility] Comment:Supplemental ranges: <140 mg/dL before meals <180 mg/dL all other times of the day. Blood CAPILLARY BLOOD / Unknown 06/18/2024 7:32 PM EST 06/18/2024 7:32 PM EST Bobby Loja MD POINT OF CARE TEST O NIKA Performing Organization Address City/[facility]/ZIP Co de Phone Number [facility] [place] [address] * POC, GLUCOSE (06/18/2024 6:08 PM EST) Glucometer, POC 140 65 - 199 mg/dL 06/18/2024 6:09 PM EST [facility] Comment:Supplemental ranges: <140 mg/dL before meals <180 mg/dL all other times of the day. Blood CAPILLARY BLOOD / Unknown 06/18/2024 6:08 PM EST 06/18/2024 6:09 PM EST Bobby Loja MD POINT OF CARE TEST O NIKA [facility] [place] [place] [address] * POC, GLUCOSE (06/18/2024 4:17 PM EST) Glucometer, POC 144 65 - 199 mg/dL 06/18/2024 4:17 PM EST [facility] Comment:Supplemental ranges: <140 mg/dL before meals <180 mg/dL all other times of the day. Blood CAPILLARY BLOOD / Unknown 06/18/2024 4:17 PM EST 06/18/2024 4:17 PM EST Bobby Loja MD POINT OF CARE TEST O NIKA [facility] [place] [place] [address] * POC, GLUCOSE (06/18/2024 12:09 PM EST) Glucometer, POC 180 65 - 199 mg/dL 06/18/2024 12:09 PM EST [facility] Comment:Supplemental ranges: <140 mg/dL before meals <180 mg/dL all other times of the day. Blood CAPILLARY BLOOD / Unknown 06/18/2024 12:09 PM EST 06/18/2024 12:09 PM EST Bobby Loja MD POINT OF CARE TEST O NIKA Performing Organization Address City/[facility]/ZIP Co de Phone Number [facility] [place] [address] * POC, GLUCOSE (06/18/2024 7:49 AM EST) Glucometer, POC 125 65 - 199 mg/dL 06/18/2024 7:50 AM EST [facility] Comment:Supplemental ranges: <140 mg/dL before meals <180 mg/dL all other times of the day. Blood CAPILLARY BLOOD / Unknown 06/18/2024 7:49 AM EST 06/18/2024 7:50 AM EST Bobby Loja MD POINT OF CARE TEST O NIKA [facility] [place] [address] * (ABNORMAL) Basic Metabolic Panel (06/18/2024 4:19 [...] CHEMISTRY ORDERABL ES Performing Organization Address [facility]/ZIP Co de Phone Number [facility] [place] [address] * POC, GLUCOSE (06/18/2024 3:50 AM EST) Glucometer, POC 99 65 - 199 mg/dL 06/18/2024 3:51 AM EST [facility] Comment:Supplemental ranges: <140 mg/dL before meals <180 mg/dL all other times of the day. Blood CAPILLARY BLOOD / Unknown 06/18/2024 3:50 AM EST 06/18/2024 3:51 AM EST Bobby Loja MD POINT OF CARE TEST O NIKA Performing Organization Address [facility] Co de Phone Number [facility] [place] [place] [address] * POC, GLUCOSE (06/17/2024 11:10 PM EST) Glucometer, POC 92 65 - 199 mg/dL 06/17/2024 11:10 PM EST [facility] Comment:Supplemental ranges: <140 mg/dL before meals <180 mg/dL all other times of the day. Blood CAPILLARY BLOOD / Unknown 06/17/2024 11:10 PM EST 06/17/2024 11:10 PM EST Bobby Loja MD POINT OF CARE TEST O NIKA Performing Organization Address City/[facility]/ZIP Co de Phone Number [facility] [place] [address] * POC, GLUCOSE (06/17/2024 7:54 PM EST) Glucometer, POC 126 65 - 199 mg/dL 06/17/2024 7:54 PM EST [facility] Comment:Supplemental ranges: <140 mg/dL before meals <180 mg/dL all other times of the day. Blood CAPILLARY BLOOD / Unknown 06/17/2024 7:54 PM EST 06/17/2024 7:54 PM EST Bobby Loja MD POINT OF CARE TEST O NIKA Performing Organization Address [facility] Co de Phone Number [facility] [place] [address] * POC, GLUCOSE (06/17/2024 4:07 PM EST) Glucometer, POC 141 65 - 199 mg/dL 06/17/2024 4:12 PM EST [facility] Comment:Supplemental ranges: <140 mg/dL before meals <180 mg/dL all other times of the day. Blood CAPILLARY BLOOD / Unknown 06/17/2024 4:07 PM EST 06/17/2024 4:12 PM EST Bobby Loja MD POINT OF CARE TEST O NIKA Performing Organization Address [facility] de Phone Number [facility] [place] [place] [address] * XR Chest PA & Lateral (Generic) (06/17/2024 1:46 PM EST) WORKSTATION ID [id number] RAD Anatomical Region Laterality Modality Chest N/A [...] have questions please contact the health child adolescent care that requested your imaging first. ? Narrative [...] who have questions please contactthe health child adolescent care that requested your imaging first. Keila Hanley APRN IMG DX ORDERABLES * (ABNORMAL) POC, GLUCOSE (06/17/2024 11:04 AM EST) Glucometer, POC 245(H) 65 - 199 mg/dL 06/17/2024 11:04 AM EST [facility] Comment:Supplemental ranges: <140 mg/dL before meals <180 mg/dL all other times of the day. Blood CAPILLARY BLOOD / Unknown 06/17/2024 11:04 AM EST 06/17/2024 11:04 AM EST Bobby Loja MD POINT OF CARE TEST O RDERAPIETER Performing Organization Address [facility] Co de Phone Number [facility] [place] [address] * POC, GLUCOSE (06/17/2024 7:49 AM EST) Glucometer, POC 141 65 - 199 mg/dL 06/17/2024 7:55 AM EST [facility] Comment:Supplemental ranges: <140 mg/dL before meals <180 mg/dL all other times of the day. Blood CAPILLARY BLOOD / Unknown 06/17/2024 7:49 AM EST 06/17/2024 7:55 AM EST Bobby Loja MD POINT OF CARE TEST O NIKA Performing Organization Address [facility] Co de Phone Number [facility] [place] [address] * POC, GLUCOSE (06/17/2024 4:16 AM EST) Glucometer, POC 139 65 - 199 mg/dL 06/17/2024 4:16 AM EST [facility] Comment:Supplemental ranges: <140 mg/dL before meals <180 mg/dL all other times of the day. Blood CAPILLARY BLOOD / Unknown 06/17/2024 4:16 AM EST 06/17/2024 4:17 AM EST Bobby Loja MD POINT OF CARE TEST O NIKA [facility] [place] [place] [address] * Lactate, Whole Blood (06/17/2024 2:39 AM EST) [facility] Lactate, Whole Blood 1.3 0.5 - 2.2 mmol/L 06/17/2024 2:46 AM EST [facility] Blood VENOUS BLOOD SPECIMEN / Unknown Venipuncture / Unknown 06/17/2024 2:39 AM EST 06/17/2024 2:43 AM EST Bobby Loja MD CHEMISTRY ORDERABLES Performing Organization Address City/[facility]/ZIP Co de Phone Number [facility] [place] [address] * (ABNORMAL) Hemogram (06/17/2024 2:39 AM EST) [facility] White Blood Cell 13.53(H) 4.00 - 9.50 [...] 357 x10(3)/mc L 06/17/2024 2:53 AM EST [facility] Mean Platelet Volume 10.4 [...] EST Bobby Loja MD HEMATOLOGY ORDERABLE S [facility] [place] [address] * (ABNORMAL) Basic Metabolic Panel (06/17/2024 2:39 [...] - 107 mMol/L 06/17/2024 3:14 AM EST [facility] Carbon Dioxide 23 22 - 31 mMol/L 06/17/2024 3:14 AM EST [facility] Anion Gap 9 5 - 15 mMol/L 06/17/2024 3:14 AM [facility] Calcium 8.8 8.5 - 10.5 mg/dL 06/17/2024 3:14 AM EST [facility] Est Glomerular Filtration Rate - Male 50 mL/min/1. 73 m?? 06/17/2024 3:14 AM EST [facility] Comment: This patient's estimated [...] AM EST Bobby Loja MD CHEMISTRY ORDERABLES [facility] [place] [place] [address] * (ABNORMAL) POC, GLUCOSE (06/17/2024 12:13 AM EST) [facility] Signature Glucometer, POC 211(H) 65 - 199 mg/dL 06/17/2024 12:13 AM EST [facility] Comment:Supplemental ranges: <140 mg/dL before meals <180 mg/dL all other times of the day. Blood CAPILLARY BLOOD / Unknown 06/17/2024 12:13 AM EST 06/17/2024 12:14 AM EST Bobby Loja MD POINT OF CARE TEST O NIKA Performing Organization Address [facility] Co de Phone Number [facility] [place] [address] * (ABNORMAL) POC, GLUCOSE (06/16/2024 7:22 PM EST) Glucometer, POC 229(H) 65 - 199 mg/dL 06/16/2024 7:22 PM EST [facility] Comment:Supplemental ranges: <140 mg/dL before meals <180 mg/dL all other times of the day. Blood CAPILLARY BLOOD / Unknown 06/16/2024 7:22 PM EST 06/16/2024 7:22 PM EST Bobby Loja MD POINT OF CARE TEST O NIKA Performing Organization Address [facility] de Phone Number [facility] [place] [address] * (ABNORMAL) POC, GLUCOSE (06/16/2024 6:14 PM EST) Glucometer, POC 220(H) 65 - 199 mg/dL 06/16/2024 6:14 PM EST [facility] Comment:Supplemental ranges: <140 mg/dL before meals <180 mg/dL all other times of the day. Blood CAPILLARY BLOOD / Unknown 06/16/2024 6:14 PM EST 06/16/2024 6:14 PM EST Bobby Loja MD POINT OF CARE TEST O NIKA Performing Organization Address [facility] Co de Phone Number [facility] [place] [address] * Lactate, Whole Blood (06/16/2024 6:14 PM EST) Lactate, Whole Blood 1.8 0.5 - 2.2 mmol/L 06/16/2024 6:27 PM EST [facility] Blood VENOUS BLOOD SPECIMEN / Unknown Venipuncture / Unknown 06/16/2024 6:14 PM EST 06/16/2024 6:25 PM EST Bobby Ljoa MD CHEMISTRY ORDERABLES Performing Organization Address [facility] Co de Phone Number [facility] [place] [address] * (ABNORMAL) POC, GLUCOSE (06/16/2024 4:14 PM EST) Glucometer, POC 240(H) 65 - 199 mg/dL 06/16/2024 4:14 PM EST [facility] Comment:Supplemental ranges: <140 mg/dL before meals <180 mg/dL all other times of the day. Blood CAPILLARY BLOOD / Unknown 06/16/2024 4:14 PM EST 06/16/2024 4:14 PM EST Bobby Loja MD POINT OF CARE TEST O RDERABLES Performing Organization Address [facility] Co de Phone Number [facility] [place] [address] * POC, GLUCOSE (06/16/2024 11:49 AM EST) Glucometer, POC 199 65 - 199 mg/dL 06/16/2024 11:49 AM EST [facility] Comment:Supplemental ranges: <140 mg/dL before meals <180 mg/dL all other times of the day. Blood CAPILLARY BLOOD / Unknown 06/16/2024 11:49 AM EST 06/16/2024 11:49 AM EST Bobby Loja MD POINT OF CARE TEST O NIKA Performing Organization Address [facility] Co de Phone Number [facility] [place] [address] * (ABNORMAL) Hemogram (06/16/2024 11:44 AM EST) White Blood Cell 17.91(H) 4.00 - 9.50 x10(3)/mc L 06/16/2024 12:25 PM EST [facility] Red Blood Cell 3.47(L) [...] EST Bobby Loja MD HEMATOLOGY ORDERABLE S [facility] [place] [place] [address] * Lactate, Whole Blood (06/16/2024 9:02 AM EST) Lactate, Whole Blood 1.8 0.5 - 2.2 mmol/L 06/16/2024 9:19 AM EST [facility] Blood VENOUS BLOOD SPECIMEN / Unknown Venipuncture / Unknown 06/16/2024 9:02 AM EST 06/16/2024 9:17 AM EST Narrative Authorizing Provider Result Saranya Loja MD CHEMISTRY ORDERABLES Performing Organization Address [facility] Co de Phone Number [facility] [place] [address] * POC, GLUCOSE (06/16/2024 7:44 AM EST) Glucometer, POC 129 65 - 199 mg/dL 06/16/2024 7:44 AM EST [facility] Comment:Supplemental ranges: <140 mg/dL before meals <180 mg/dL all other times of the day. Blood CAPILLARY BLOOD / Unknown 06/16/2024 7:44 AM EST 06/16/2024 7:44 AM EST Narrative Authorizing Provider Result Saranya Loja MD POINT OF CARE TEST O RDERABLES Performing Organization Address [facility] Co de Phone Number [facility] [place] [address] * POC, GLUCOSE (06/16/2024 4:01 AM EST) Glucometer, POC 158 65 - 199 mg/dL 06/16/2024 4:01 AM EST [facility] Comment:Supplemental ranges: <140 mg/dL before meals <180 mg/dL all other times of the day. Blood CAPILLARY BLOOD / Unknown 06/16/2024 4:01 AM EST 06/16/2024 4:01 AM EST Narrative Authorizing Provider Result Saranya Loja MD POINT OF CARE TEST O RDERABLES [facility] [place] [address] * (ABNORMAL) Basic Metabolic Panel (06/16/2024 2:23 [...] Loja MD CHEMISTRY ORDERABLES Performing Organization Address City/[facility]/ZIP Co de Phone Number [facility] [place] [address] * POC, GLUCOSE (06/16/2024 2:21 AM EST) Glucometer, POC 176 65 - 199 mg/dL 06/16/2024 2:31 AM EST [facility] Comment:Supplemental ranges: <140 mg/dL before meals <180 mg/dL all other times of the day. Blood CAPILLARY BLOOD / Unknown 06/16/2024 2:21 AM EST 06/16/2024 2:31 AM EST Narrative Authorizing Provider Result Saranya Loja MD POINT OF CARE TEST O RDERABLES Performing Organization Address [facility] Co de Phone Number [facility] [place] [address] * (ABNORMAL) POC, GLUCOSE (06/16/2024 12:09 AM EST) Glucometer, POC 222(H) 65 - 199 mg/dL 06/16/2024 12:09 AM EST [facility] Comment:Supplemental ranges: <140 mg/dL before meals <180 mg/dL all other times of the day. Blood CAPILLARY BLOOD / Unknown 06/16/2024 12:09 AM EST 06/16/2024 12:09 AM EST Narrative Authorizing Provider Result Saranya Loja MD POINT OF CARE TEST O RDERABLES Performing Organization Address City/[facility]/ZIP Co de Phone Number [facility] [place] [address] * (ABNORMAL) POC, GLUCOSE (06/15/2024 10:07 PM EST) Glucometer, POC 320(H) 65 - 199 mg/dL 06/15/2024 10:07 PM EST [facility] Comment:Supplemental ranges: <140 mg/dL before meals <180 mg/dL all other times of the day. Blood CAPILLARY BLOOD / Unknown 06/15/2024 10:07 PM EST 06/15/2024 10:07 PM EST Bobby Loja MD POINT OF CARE TEST O NIKA Performing Organization Address [facility] de Phone Number [facility] [place] [address] * (ABNORMAL) POC, GLUCOSE (06/15/2024 7:56 PM EST) Glucometer, POC 304(H) 65 - 199 mg/dL 06/15/2024 7:56 PM EST [facility] Comment:Supplemental ranges: <140 mg/dL before meals <180 mg/dL all other times of the day. Blood CAPILLARY BLOOD / Unknown 06/15/2024 7:56 PM EST 06/15/2024 7:56 PM EST Bobby Loja MD POINT OF CARE TEST Abimael MAHER Performing Organization Address [facility] de Phone Number [facility] [place] [address] * (ABNORMAL) POC, GLUCOSE (06/15/2024 7:52 PM EST) Glucometer, POC 288(H) 65 - 199 mg/dL 06/15/2024 7:52 PM EST [facility] Comment:Supplemental ranges: <140 mg/dL before meals <180 mg/dL all other times of the day. Blood CAPILLARY BLOOD / Unknown 06/15/2024 7:52 PM EST 06/15/2024 7:52 PM EST Narrative Authorizing Provider Result Saranya Loja MD POINT OF CARE TEST O NIKA Performing Organization Address City/[facility] Co de Phone Number [facility] [place] [address] * POC, GLUCOSE (06/15/2024 4:21 PM EST) Glucometer, POC 192 65 - 199 mg/dL 06/15/2024 4:21 PM EST [facility] Comment:Supplemental ranges: <140 mg/dL before meals <180 mg/dL all other times of the day. Blood CAPILLARY BLOOD / Unknown 06/15/2024 4:21 PM EST 06/15/2024 4:21 PM EST Bobby Loja MD POINT OF CARE TEST O NIKA Performing Organization Address [facility] de Phone Number [facility] [place] [address] * POC, GLUCOSE (06/15/2024 3:27 PM EST) Glucometer, POC 155 65 - 199 mg/dL 06/15/2024 3:27 PM EST [facility] Comment:Supplemental ranges: <140 mg/dL before meals <180 mg/dL all other times of the day. Blood CAPILLARY BLOOD / Unknown 06/15/2024 3:27 PM EST 06/15/2024 3:27 PM EST Bobby Loja MD POINT OF CARE TEST O NIKA Performing Organization Address [facility] Co de Phone Number [facility] [place] [address] * POC, GLUCOSE (06/15/2024 2:23 PM EST) Glucometer, POC 160 65 - 199 mg/dL 06/15/2024 2:23 PM EST [facility] Comment:Supplemental ranges: <140 mg/dL before meals <180 mg/dL all other times of the day. Blood CAPILLARY BLOOD / Unknown 06/15/2024 2:23 PM EST 06/15/2024 2:23 PM EST Bobby Loja MD POINT OF CARE TEST O RDERABLES Performing Organization Address [facility] Co de Phone Number [facility] [place] [address] * POC, GLUCOSE (06/15/2024 1:26 PM EST) Glucometer, POC 167 65 - 199 mg/dL 06/15/2024 1:26 PM EST [facility] Comment:Supplemental ranges: <140 mg/dL before meals <180 mg/dL all other times of the day. Blood CAPILLARY BLOOD / Unknown 06/15/2024 1:26 PM EST 06/15/2024 1:26 PM EST Bobby Loja MD POINT OF CARE TEST O NIKA Performing Organization Address [facility] Co de Phone Number [facility] [place] [address] * (ABNORMAL) POC, GLUCOSE (06/15/2024 12:55 PM EST) Glucometer, POC 210(H) 65 - 199 mg/dL 06/15/2024 12:55 PM EST [facility] Comment:Supplemental ranges: <140 mg/dL before meals <180 mg/dL all other times of the day. Blood CAPILLARY BLOOD / Unknown 06/15/2024 12:55 PM EST 06/15/2024 12:55 PM EST Bobby Loja MD POINT OF CARE TEST O NIKA Performing Organization Address [facility] Co de Phone Number [facility] [place] [address] * (ABNORMAL) POC, GLUCOSE (06/15/2024 11:29 AM EST) Glucometer, POC 220(H) 65 - 199 mg/dL 06/15/2024 11:29 AM EST [facility] Comment:Supplemental ranges: <140 mg/dL before meals <180 mg/dL all other times of the day. Blood CAPILLARY BLOOD / Unknown 06/15/2024 11:29 AM EST 06/15/2024 11:29 AM EST Bobby Loja MD POINT OF CARE TEST O RDERABLES [facility] [place] [address] * (ABNORMAL) Basic Metabolic Panel (06/15/2024 11:23 [...] MD CHEMISTRY ORDERABLES Performing Organization Address [facility] Co de Phone Number [facility] [place] [address] * POC, GLUCOSE (06/15/2024 10:29 AM EST) Glucometer, POC 189 65 - 199 mg/dL 06/15/2024 10:29 AM EST [facility] Comment:Supplemental ranges: <140 mg/dL before meals <180 mg/dL all other times of the day. Blood CAPILLARY BLOOD / Unknown 06/15/2024 10:29 AM EST 06/15/2024 10:29 AM EST Narrative Authorizing Provider Result Saranya Loja MD POINT OF CARE TEST O RDERABLES Performing Organization Address City/[facility] Co de Phone Number [facility] [place] [address] * POC, GLUCOSE (06/15/2024 9:45 AM EST) Glucometer, POC 178 65 - 199 mg/dL 06/15/2024 9:45 AM EST [facility] Comment:Supplemental ranges: <140 mg/dL before meals <180 mg/dL all other times of the day. Blood CAPILLARY BLOOD / Unknown 06/15/2024 9:45 AM EST 06/15/2024 9:45 AM EST Narrative Authorizing Provider Result Saranya Loja MD POINT OF CARE TEST O RDERABLES Performing Organization Address City/[facility]/ZIP Co de Phone Number [facility] [place] [address] * (ABNORMAL) Cooximetry, POC (06/15/2024 9:31 AM [...] TEST O RDERAPIETER Performing Organization Address [facility]/ZIP Co de Phone Number [facility] [place] [address] * Cooximetry, POC (06/15/2024 9:22 AM EST) pO2, Coox 30 mmHg 06/15/2024 9:25 AM EST [facility] Hemoglobin, Coox 06/15/2024 9:25 AM EST [facility] Comment:QUES Oxyhemoglobin, Coox 06/15/2024 9:25 AM [facility] Comment:QUES Carboxyhemoglo bin, Coox 06/15/2024 9:25 AM [facility] Comment:QUES Methemoglobin, Coox 06/15/2024 9:25 AM [facility] Comment:QUES Blood (Mixed Venous) 06/15/2024 9:22 AM EST 06/15/2024 9:25 AM EST Bobby Loja MD POINT OF CARE TEST O NIKA [facility] [place] [place] [address] * (ABNORMAL) Blood Gas, Arterial POC (06/15/2024 [...] TEST O NIKA [facility] [place] [address] * (ABNORMAL) POC, GLUCOSE (06/15/2024 8:37 AM EST) [facility] Signature Glucometer, POC 204(H) 65 - 199 mg/dL 06/15/2024 8:37 AM [facility] Comment:Supplemental ranges: <140 mg/dL before meals <180 mg/dL all other times of the day. Blood CAPILLARY BLOOD / Unknown 06/15/2024 8:37 AM EST 06/15/2024 8:37 AM EST Narrative Authorizing Provider Result Saranya Loja MD POINT OF CARE TEST O RDBECKIE Performing Organization Address [facility] de Phone Number [facility] [place] [address] * POC, GLUCOSE (06/15/2024 7:37 AM EST) Glucometer, POC 199 65 - 199 mg/dL 06/15/2024 7:37 AM EST [facility] Comment:Supplemental ranges: <140 mg/dL before meals <180 mg/dL all other times of the day. Blood CAPILLARY BLOOD / Unknown 06/15/2024 7:37 AM EST 06/15/2024 7:38 AM EST Bobby Loja MD POINT OF CARE TEST O NIKA Performing Organization Address [facility] de Phone Number [facility] [place] [address] * (ABNORMAL) POC, GLUCOSE (06/15/2024 7:01 AM EST) Glucometer, POC 203(H) 65 - 199 mg/dL 06/15/2024 7:01 AM EST [facility] Comment:Supplemental ranges: <140 mg/dL before meals <180 mg/dL all other times of the day. Blood CAPILLARY BLOOD / Unknown 06/15/2024 7:01 AM EST 06/15/2024 7:01 AM EST Bobby Loja MD POINT OF CARE TEST O NIKA Performing Organization Address [facility] Co de Phone Number [facility] [place] [address] * XR Chest One View (06/15/2024 6:31 AM EST) WORKSTATION ID [id number] RAD Anatomical Region Laterality Modality Chest N/A [...] have questions please contact the health child adolescent care that requested your imaging first. ? Narrative [...] who have questions please contactthe health child adolescent care that requested your imaging first. Authorizing Provider Result Saranya Loja MD IMG DX ORDERABLES * POC, GLUCOSE (06/15/2024 6:02 AM EST) Glucometer, POC 179 65 - 199 mg/dL 06/15/2024 6:02 AM EST [facility] Comment:Supplemental ranges: <140 mg/dL before meals <180 mg/dL all other times of the day. Blood CAPILLARY BLOOD / Unknown 06/15/2024 6:02 AM EST 06/15/2024 6:02 AM EST Bobby Loja MD POINT OF CARE TEST O NIKA Performing Organization Address [facility]/ZIP Co de Phone Number [facility] [place] [address] * POC, GLUCOSE (06/15/2024 5:06 AM EST) Glucometer, POC 160 65 - 199 mg/dL 06/15/2024 5:06 AM EST [facility] Comment:Supplemental ranges: <140 mg/dL before meals <180 mg/dL all other times of the day. Blood CAPILLARY BLOOD / Unknown 06/15/2024 5:06 AM EST 06/15/2024 5:06 AM EST Narrative Authorizing Provider Result Saranya Loja MD POINT OF CARE TEST O NIKA [facility] [place] [address] * POC, GLUCOSE (06/15/2024 4:05 AM EST) Glucometer, POC 160 65 - 199 mg/dL 06/15/2024 4:06 AM EST [facility] Comment:Supplemental ranges: <140 mg/dL before meals <180 mg/dL all other times of the day. Blood CAPILLARY BLOOD / Unknown 06/15/2024 4:05 AM EST 06/15/2024 4:06 AM EST Bobby Loja MD POINT OF CARE TEST Abimael MAHER Performing Organization Address [facility] Co de Phone Number [facility] [place] [address] * POC, GLUCOSE (06/15/2024 3:07 AM EST) Glucometer, POC 151 65 - 199 mg/dL 06/15/2024 3:07 AM EST [facility] Comment:Supplemental ranges: <140 mg/dL before meals <180 mg/dL all other times of the day. Blood CAPILLARY BLOOD / Unknown 06/15/2024 3:07 AM EST 06/15/2024 3:07 AM EST Bobby Loja MD POINT OF CARE TEST Abimael MAHER Performing Organization Address [facility] Co de Phone Number [facility] [place] [address] * (ABNORMAL) Basic Metabolic Panel (06/15/2024 1:48 [...] - 31 mMol/L 06/15/2024 2:38 AM EST [facility] Anion Gap 9 5 - 15 mMol/L 06/15/2024 2:38 AM EST [facility] Calcium 8.3(L) 8.5 - 10.5 mg/dL 06/15/2024 2:38 AM EST [facility] Est Glomerular Filtration Rate - Male 62 mL/min/1. 73 m?? 06/15/2024 2:38 AM EST [facility] Comment: This patient's estimated [...] AM EST Bobby Loja MD CHEMISTRY ORDERABLES [facility] [place] [address] * (ABNORMAL) CBC (with Diff) (06/15/2024 1:48 AM EST) White Blood Cell 11.71(H) 4.00 - 9.50 x10(3)/mc L 06/15/2024 2:13 AM EST [facility] Red Blood Cell 4.14(L) 4.58 - 5.54 x10(6)/mc L 06/15/2024 2:13 AM EST [facility] Hemoglobin 12.5(L) 13.7 - 16.5 g/dL 06/15/2024 2:13 AM EST [facility] Hematocrit 38.4(L) 40.5 - [...] 0.90 x10(3)/mc L 06/15/2024 2:13 AM EST [facility] Eos % 0.2 % 06/15/2024 2:13 AM [facility] Eos Absolute <0.04 0.00 - 0.40 x10(3)/mc L 06/15/2024 2:13 AM EST [facility] Basophil % 0.2 % 06/15/2024 2:13 AM EST [facility] Baso Absolute <0.04 0.00 - 0.10 x10(3)/mc L 06/15/2024 2:13 AM [facility] Immature Gran % 0.5 % 2:13 AM [facility] Immature Gran Absolute 0.06(H) 0.00 - 0.04 x10(3)/mc L 06/15/2024 2:13 AM [facility] Blood VENOUS BLOOD SPECIMEN / Unknown Venipuncture / Unknown 06/15/2024 1:48 AM EST 06/15/2024 1:52 AM EST Bobby Loja MD HEMATOLOGY ORDERABLE S [facility] [place] [address] * (ABNORMAL) Troponin - Single (06/15/2024 1:48 AM EST) Troponin-T, High Sensitivity 667(H) <=22 ng/L 06/15/2024 2:22 AM EST [facility] Comment: [...] value can be found in the [facility] Test Catalog Troponin - https://[email or web address].org/catalogs/565/[email or web address]/70104 Reference: Fourth [place] Definition of Myocardial Infarction. Journal of the [place] [employer] 2018;72:8519-4012 Blood VENOUS BLOOD SPECIMEN / Unknown Venipuncture / Unknown 06/15/2024 1:48 AM EST 06/15/2024 1:52 AM EST Bobby Loja MD CHEMISTRY ORDERABLES [facility] [place] [address] * (ABNORMAL) Blood Gas, Arterial POC (06/15/2024 1:46 AM EST) pH, Arterial 7.33(L) 7.35 - 7.45 06/15/2024 1:47 AM EST [facility] PCO2, Arterial 40 35 - 45 mmHg 06/15/2024 1:47 AM EST [facility] PO2, Arterial 131(H) 85 - 104 mmHg 06/15/2024 1:47 AM EST [facility] Bicarbonate, Arterial 20.7 20.0 - 26.0 mmol/L 06/15/2024 1:47 AM EST [facility] Base Excess, Arterial -5.2(L) -3.0 - 3.0 mmol/L 06/15/2024 1:47 AM EST [facility] Hemoglobin, Arterial 13.4(L) 13.7 - 16.5 g/dL 06/15/2024 1:47 AM EST [facility] Oxyhemoglobin, Arterial 97.9(H) 94.0 [...] TEST O NIKA [facility] [place] [address] * POC, GLUCOSE (06/15/2024 1:05 AM EST) Glucometer, POC 116 65 - 199 mg/dL 06/15/2024 1:05 AM EST [facility] Comment:Supplemental ranges: <140 mg/dL before meals <180 mg/dL all other times of the day. Blood CAPILLARY BLOOD / Unknown 06/15/2024 1:05 AM EST 06/15/2024 1:05 AM EST Bobby Loja MD POINT OF CARE TEST O RDERABLES Performing Organization Address [facility] Co de Phone Number [facility] [place] [address] * POC, GLUCOSE (06/15/2024 12:16 AM EST) Glucometer, POC 135 65 - 199 mg/dL 06/15/2024 12:16 AM EST [facility] Comment:Supplemental ranges: <140 mg/dL before meals <180 mg/dL all other times of the day. Blood CAPILLARY BLOOD / Unknown 06/15/2024 12:16 AM EST 06/15/2024 12:16 AM EST Bobby Loja MD POINT OF CARE TEST O RDERABLES Performing Organization Address [facility] Co de Phone Number [facility] [place] [address] * Potassium (06/14/2024 11:28 PM EST) Potassium 4.1 3.5 - 5.0 mMol/L 06/14/2024 11:54 PM EST [facility] Blood VENOUS BLOOD SPECIMEN / Unknown Venipuncture / Unknown 06/14/2024 11:28 PM EST 06/14/2024 11:34 PM EST Bobby Loja MD CHEMISTRY ORDERABLES Performing Organization Address City/[facility]/ZIP Co de Phone Number [facility] [place] [address] * POC, GLUCOSE (06/14/2024 10:58 PM EST) Glucometer, POC 126 65 - 199 mg/dL 06/14/2024 10:59 PM EST [facility] Comment:Supplemental ranges: <140 mg/dL before meals <180 mg/dL all other times of the day. Blood CAPILLARY BLOOD / Unknown 06/14/2024 10:58 PM EST 06/14/2024 10:59 PM EST Bobby Loja MD POINT OF CARE TEST O NIKA Performing Organization Address City/[facility]/ZIP Co de Phone Number [facility] [place] [address] * POC, GLUCOSE (06/14/2024 9:55 PM EST) Glucometer, POC 152 65 - 199 mg/dL 06/14/2024 9:56 PM EST [facility] Comment:Supplemental ranges: <140 mg/dL before meals <180 mg/dL all other times of the day. Blood CAPILLARY BLOOD / Unknown 06/14/2024 9:55 PM EST 06/14/2024 9:56 PM EST Bobby Loja MD POINT OF CARE TEST O NIKA Performing Organization Address City/[facility]/ZIP Co de Phone Number [facility] [place] [address] * POC, GLUCOSE (06/14/2024 8:54 PM EST) Glucometer, POC 151 65 - 199 mg/dL 06/14/2024 8:54 PM EST [facility] Comment:Supplemental ranges: <140 mg/dL before meals <180 mg/dL all other times of the day. Blood CAPILLARY BLOOD / Unknown 06/14/2024 8:54 PM EST 06/14/2024 8:54 PM EST Bobby Loja MD POINT OF CARE TEST O NIKA Performing Organization Address [facility] Co de Phone Number [facility] [place] [address] * POC, GLUCOSE (06/14/2024 7:51 PM EST) Glucometer, POC 169 65 - 199 mg/dL 06/14/2024 7:52 PM EST [facility] Comment:Supplemental ranges: <140 mg/dL before meals <180 mg/dL all other times of the day. Blood CAPILLARY BLOOD / Unknown 06/14/2024 7:51 PM EST 06/14/2024 7:52 PM EST Bobby Loja MD POINT OF CARE TEST Abimael MAHER Performing Organization Address [facility] Co de Phone Number [facility] [place] [address] * POC, GLUCOSE (06/14/2024 6:49 PM EST) Glucometer, POC 194 65 - 199 mg/dL 06/14/2024 6:50 PM EST [facility] Comment:Supplemental ranges: <140 mg/dL before meals <180 mg/dL all other times of the day. Blood CAPILLARY BLOOD / Unknown 06/14/2024 6:49 PM EST 06/14/2024 6:50 PM EST Bobby Loja MD POINT OF CARE TEST Abimael MAHER Performing Organization Address City/[facility] Co de Phone Number [facility] [place] [address] * (ABNORMAL) Hemoglobin (06/14/2024 6:19 PM EST) Hemoglobin 13.1(L) 13.7 - 16.5 g/dL 06/14/2024 7:08 PM EST [facility] Blood VENOUS BLOOD SPECIMEN / Unknown Venipuncture / Unknown 06/14/2024 6:19 PM EST 06/14/2024 6:28 PM EST Bobby Loja MD HEMATOLOGY ORDERABLE S Performing Organization Address [facility]/ZIP Co de Phone Number [facility] [place] [address] * Potassium (06/14/2024 6:19 PM EST) Potassium 3.9 3.5 - 5.0 mMol/L 06/14/2024 6:52 PM EST [facility] Blood VENOUS BLOOD SPECIMEN / Unknown Venipuncture / Unknown 06/14/2024 6:19 PM EST 06/14/2024 6:28 PM EST Bobby Loja MD CHEMISTRY ORDERABLES Performing Organization Address [facility] Co de Phone Number [facility] [place] [address] * (ABNORMAL) POC, GLUCOSE (06/14/2024 6:03 PM EST) [facility] Glucometer, POC 201(H) 65 - 199 mg/dL 06/14/2024 6:03 PM EST [facility] Comment:Supplemental ranges: <140 mg/dL before meals <180 mg/dL all other times of the day. Blood CAPILLARY BLOOD / Unknown 06/14/2024 6:03 PM EST 06/14/2024 6:03 PM EST Bobby Loja MD POINT OF CARE TEST O RDERABLES Performing Organization Address City/[facility]/ZIP Co de Phone Number [facility] [place] [address] * (ABNORMAL) Blood Gas, Arterial POC (06/14/2024 4:51 PM EST) pH, Arterial 7.32(L) 7.35 - 7.45 06/14/2024 4:52 PM EST [facility] PCO2, Arterial 46(H) 35 - 45 mmHg 06/14/2024 4:52 PM EST [facility] PO2, Arterial 85 85 [...] - 199 mg/dL 06/14/2024 4:52 PM EST [facility] Comment:Glucose Concentratio n >=200 mg/dL plus symptoms is consistent with Diabetes Mellitus. Blood ARTERIAL BLOOD / Unknown 06/14/2024 4:51 PM EST 06/14/2024 4:52 PM EST Bobby Loja MD POINT OF CARE TEST O NIKA Performing Organization Address [facility] Co de Phone Number [facility] [place] [address] * POC, GLUCOSE (06/14/2024 4:00 PM EST) Glucometer, POC 184 65 - 199 mg/dL 06/14/2024 4:01 PM EST [facility] Comment:Supplemental ranges: <140 mg/dL before meals <180 mg/dL all other times of the day. Blood CAPILLARY BLOOD / Unknown 06/14/2024 4:00 PM EST 06/14/2024 4:01 PM EST Bobby Loja MD POINT OF CARE TEST O NIKA Performing Organization Address [facility] de Phone Number [facility] [place] [address] * XR Chest One View (06/14/2024 3:05 PM EST) WORKSTATION ID [id number] RAD Anatomical Region Laterality Modality Chest N/A [...] have questions please contact the health child adolescent care that requested your imaging first. ? Narrative [...] who have questions please contactthe health child adolescent care that requested your imaging first. Bobby Loja [...] 0.1 <=1.5 % 06/14/2024 2:53 PM EST [facility] Sodium, Arterial 138 135 - 145 mmol/L 06/14/2024 2:53 PM EST [facility] Potassium, Arterial 4.2 3.5 - 5.0 mmol/L 06/14/2024 2:53 PM EST [facility] Chloride, Arterial 106 98 [...] TEST O RDERABLES [facility] [place] [address] * EKG 12 Lead (06/14/2024 2:46 PM EST) Ventricular rate 80 BPM MUSE SYSTEM Atrial Rate 80 BPM MUSE SYSTEM P-R Interval 120 ms MUSE SYSTEM QRS Duration 108 ms MUSE SYSTEM Q-T Interval 454 ms MUSE SYSTEM QTC Calculated (Bezet) 523 ms MUSE SYSTEM Calculated P Cyril 70 degrees MUSE SYSTEM Calculated R Cyril 56 degrees MUSE SYSTEM Calculated T Cyril 50 degrees MUSE SYSTEM INTERPRETATION AV dual-paced rhythm Abnormal ECG When compared with ECG of 03-JUN-2024 01:45, Vent. rate has increased BY ??17 BPM Confirmed by MD Marisol, Shaheen ([id number]) on 06/15/2024 1:57:23 PM MUSE SYSTEM 06/14/2024 2:46 PM EST 06/15/2024 1:57 PM EST Bobby Loja MD ECG ORDERABLES MUSE SYSTEM * Prepare RBC (06/14/2024 2:27 PM EST) Status Information Returned [facility] Product Identification RBC [facility] Unit Number [id number] [facility] Product Code [id number] [facility] Unit Blood Type OPOS [facility] Specimen Expiration Date [facility] Volulme [address] [facility] Issue Date / Time [facility] Status [facility] Returned [facility] Product Identification RBC [facility] Unit Number [id number] [facility] Product Code [id number] [facility] Unit Blood Type OPOS [facility] Specimen Expiration Date [facility] Volulme [address] [facility] Issue Date / Time [facility] Blood 06/14/2024 6:2 5 AM EST Haja Byrnes MD BLOOD BANK PRODUCT O RDERABLES [facility] [place] [address] * (ABNORMAL) Cooximetry, POC (06/14/2024 1:52 PM EST) pO2, Coox 58 mmHg 06/14/2024 1:55 PM EST [facility] Hemoglobin, Coox 12.6(L) 13.7 - 16.5 g/dL 06/14/2024 1:55 PM EST [facility] Oxyhemoglobin, Coox 85.5 % [...] [facility] Co de Phone Number [facility] [place] [address] * (ABNORMAL) Blood Gas, Arterial POC (06/14/2024 [...] - 97.0 % 06/14/2024 12:48 PM EST [facility] Carboxyhemoglobin , Arterial 0.3 % 06/14/2024 12:48 PM [facility] Comment: Nonsmokers: 0.5-1.5% COHB ?? Smokers: Variable ??but usually less than 10% ?? Toxic: 20-30% COHB ?? Lethal: Greater than 60% COHB Methemoglobin, Arterial 0.5 <=1.5 % 06/14/2024 12:48 PM EST [facility] Sodium, Arterial 135 135 [...] TEST O RDERABLES [facility] [place] [address] * (ABNORMAL) Cooximetry, POC (06/14/2024 12:42 PM EST) pO2, Coox 71 mmHg 06/14/2024 12:45 PM EST [facility] Hemoglobin, Coox 11.6(L) 13.7 - 16.5 g/dL 06/14/2024 12:45 PM EST [facility] Oxyhemoglobin, Coox 91.5 % 06/14/2024 12:45 PM EST [facility] Carboxyhemoglo bin, Coox 0.3 % 06/14/2024 12:45 PM EST [facility] Comment: Nonsmokers: 0.5-1.5% COHB ?? Smokers: Variable ??but usually less than 10% ?? Toxic: 20-30% COHB ?? Lethal: Greater than 60% COHB Methemoglobin, Coox 0.4 <=1.5 % 06/14/2024 12:45 PM EST [facility] Blood (Mixed Venous) 06/14/2024 12:42 PM EST 06/14/2024 12:45 PM EST Haja Byrnes MD POINT OF CARE TEST O RDERABLES [facility] [place] [address] * (ABNORMAL) Platelet count (06/14/2024 12:30 PM EST) Platelet 73(L) 145 - 357 x10(3)/mcL 06/14/2024 12:54 PM EST [facility] Blood ARTERIAL BLOOD / Unknown 06/14/2024 12:30 PM EST Comment:Pre-op diagnosis: CAD Bobby Loja MD HEMATOLOGY ORDERABLE S [facility] [place] [address] * (ABNORMAL) Hemoglobin and Hematocrit, blood (06/14/2024 12:30 PM EST) Hemoglobin 10.9(L) 13.7 - 16.5 g/dL 06/14/2024 12:54 PM EST [facility] Hematocrit 33.5(L) 40.5 - 48.5 % 06/14/2024 12:54 PM EST [facility] Comment:This result has been called to Danielle López by Satya Page on 06/14/2024 12:53:56, and has been read back. Blood ARTERIAL BLOOD / Unknown 06/14/2024 12:30 PM EST 06/14/2024 12:42 PM EST Comment:Pre-op diagnosis: CAD Bobby Loja MD HEMATOLOGY ORDERABLE S Performing Organization Address [facility] Co de Phone Number [facility] [place] [address] * APTT (06/14/2024 12:30 PM EST) Partial Thromboplastin Time 31 25 - 37 sec 06/14/2024 12:57 PM EST [facility] Comment: The PTT is NOT appropriate for heparin monitoring. Use the Anti-Xa level for heparin monitoring (HEP UFH) or LMWH monitoring (HEP LMW). A PTT less than 37 seconds generally indicates adequate hemostasis. Blood ARTERIAL BLOOD / Unknown 06/14/2024 12:30 PM EST 06/14/2024 12:42 PM EST Comment:Pre-op diagnosis: CAD Bobby Loja MD HEMATOLOGY ORDERABLE S Performing Organization Address [facility] Co de Phone Number [facility] [place] [address] * (ABNORMAL) Prothrombin Time (06/14/2024 12:30 PM EST) Prothrombin Time 16.8(H) 9.4 - 12.5 sec 06/14/2024 12:57 PM EST [facility] International Normalization Ratio 1.5 <=4.9 06/14/2024 12:57 PM EST [facility] Comment: An INR < [...] HEMATOLOGY ORDERABLE S Performing Organization Address [facility] Co de Phone Number [facility] [place] [address] * Fibrinogen (06/14/2024 12:30 PM EST) Fibrinogen 211 200 - 393 mg/dL 06/14/2024 12:57 PM EST [facility] Comment: A fibrinogen level >100 mg/dL is adequate for hemostasis in most patients without underlying bleeding disorders. Blood ARTERIAL BLOOD / Unknown 06/14/2024 12:30 PM EST 06/14/2024 12:42 PM EST Comment:Pre-op diagnosis: CAD Bobby Loja MD HEMATOLOGY ORDERABLE S Performing Organization Address [facility] Co de Phone Number [facility] [place] [address] * (ABNORMAL) Blood Gas, Arterial POC (06/14/2024 12:15 PM EST) pH, Arterial 7.38 7.35 - 7.45 06/14/2024 12:16 PM EST [facility] PCO2, Arterial 40 35 - 45 mmHg 06/14/2024 12:16 PM EST [facility] Bicarbonate, Arterial 22.9 20.0 - 26.0 mmol/L 06/14/2024 12:16 PM EST [facility] Base Excess, Arterial -2.3 -3.0 - 3.0 mmol/L 06/14/2024 12:16 PM EST [facility] Hemoglobin, Arterial 11.4(L) 13.7 [...] TEST O RDERABLES [facility] [place] [address] * (ABNORMAL) Blood Gas, Arterial POC (06/14/2024 [...] - 1.33 mmol/L 06/14/2024 11:52 AM EST [facility] Glucose, Arterial 148 65 - 199 mg/dL 06/14/2024 11:52 AM EST [facility] Comment:Glucose Concentratio n >=200 mg/dL plus symptoms is consistent with Diabetes Mellitus. Blood ARTERIAL BLOOD / Unknown 06/14/2024 11:51 AM EST 06/14/2024 11:52 AM EST Haja Byrnes MD POINT OF CARE TEST O RDERABLES [facility] [place] [address] * (ABNORMAL) Blood Gas, Arterial POC (06/14/2024 [...] TEST O RDERABLES [facility] [place] [address] * (ABNORMAL) Scan, Peripheral Blood (06/14/2024 11:23 AM EST) RBC Morphology Abnormal 06/14/2024 11:59 AM [facility] Platelet Estimate Decreased(A) Normal 06/14/2024 11:59 AM [facility] [place] cells 1-5 /HPF 06/14/2024 11:59 AM [facility] Blood ARTERIAL BLOOD / Unknown 06/14/2024 11:23 AM EST 06/14/2024 11:27 AM EST Bobby Loja MD HEMATOLOGY ORDERABLE S [facility] [place] [address] * (ABNORMAL) Platelet count (06/14/2024 11:23 AM EST) Platelet 86(L) 145 - 357 x10(3)/mcL 06/14/2024 11:59 AM EST [facility] Blood ARTERIAL BLOOD / Unknown 06/14/2024 11:23 AM EST Comment:Pre-op diagnosis: CAD Bobby Loja MD HEMATOLOGY ORDERABLE S Performing Organization Address [facility]/ZIP Co de Phone Number [facility] [place] [address] * (ABNORMAL) Hemoglobin and Hematocrit, blood (06/14/2024 11:23 AM EST) Hemoglobin 9.8(L) 13.7 - 16.5 g/dL 06/14/2024 11:59 AM EST [facility] Comment:This result has been called to Danielle López by Satya Page on 06/14/2024 11:58:33. Hematocrit 30.5(L) 40.5 - 48.5 % 06/14/2024 11:59 AM EST [facility] Comment:This result has been called to Danielle López by Satya Page on 06/14/2024 11:58:40, and has been read back. Blood ARTERIAL BLOOD / Unknown 06/14/2024 11:23 AM EST 06/14/2024 11:27 AM EST Comment:Pre-op diagnosis: CAD Bobby Loja MD HEMATOLOGY ORDERABLE S Performing Organization Address City/[facility]/ZIP Co de Phone Number [facility] [place] [address] * (ABNORMAL) Blood Gas, Arterial POC (06/14/2024 10:58 AM [facility]) pH, Arterial 7.38 7.35 - [...] TEST O RDERABLES [facility] [place] [address] * (ABNORMAL) Blood Gas, Arterial POC (06/14/2024 [...] TEST O RDERABLES [facility] [place] [address] * (ABNORMAL) Blood Gas, Arterial POC (06/14/2024 [...] POINT OF CARE TEST O RDERABLES [facility] [place] [address] * Surgical Pathology (06/14/2024 9:53 AM EST) Case Report Surgical Pathology Report ? Case: [id number] ? Authorizing Provider: ??Bobby Loja MD ? Collected: ? 06/14/2024 0953 ? Ordering Location: ? Main Operating Room [facility] ?? Received: ?06/14/2024 1413 ? [facility] ? Hospital ? Pathologist: ? Sandra Salas [...] Inking: External surface inked black Sections/Process ing: Dining Car Waiter/Waitress sections in 4 cassettes labeled A1-A4. cmk B. Heart, Atrial Appendage, Left, . B - Labeled/Fixative : Heart, atrial appendage, left, fresh. Quantity/Size: Single, 3.3 x 1.5 x 0.8 cm. Tissue Description: Portion of heart tissue consisting of rodriguez-white, semitranslucent, smooth endocardium with rodriguez-brown muscular myocardium and thin translucent epicardium with adherent adipose tissue. No areas of discoloration identified. Sections/Process ing: Dining Car Waiter/Waitress sections in 1 cassette labeled B1. cmk [...] Comment:MARIALUISA Bobby Loja MD PATHOLOGY/CYTOLOGY O RDERAPIETER [facility] [place] [address] * Cooximetry, POC (06/14/2024 9:00 AM EST) [...] TEST O RDERABLES [facility] [place] [address] * (ABNORMAL) Blood Gas, Arterial POC (06/14/2024 [...] - 107 mmol/L 06/14/2024 8:40 AM EST [facility] Lactate, Arterial 0.9 0.5 - 2.2 mmol/L 06/14/2024 8:40 AM EST [facility] IONIZED CALCIUM, ARTERIAL 1.17 1.15 - 1.33 mmol/L 06/14/2024 8:40 AM EST [facility] Glucose, Arterial 121 65 - 199 mg/dL 06/14/2024 8:40 AM EST [facility] Comment:Glucose Concentratio n >=200 mg/dL plus symptoms is consistent with Diabetes Mellitus. Blood ARTERIAL BLOOD / Unknown 06/14/2024 8:39 AM EST 06/14/2024 8:40 AM EST Hjaa Byrnes MD POINT OF CARE TEST O RDERABLES Performing Organization Address City/State/[facility] Co de Phone Number [facility] [place] [address] * Transesophageal Echo/OR (06/14/2024 7:20 AM EST) Anatomical Region Laterality Modality Cardiac Other 06/14/2024 7:20 AM EST Narrative 06/14/2024 4:36 PM EST Version: 2 Study ID: [id number] [address] [place] [address] ?OR Transesophageal Echo Report Name: GEORGE MEHTA [...] of this mass after consultation with other freight conductor experts and the decision was made by [...] guidewire was visualized in the RA via KARNE prior to dilation and cannulation. Vital signs [...] MD - 06/14/2024 Version: 2 Study ID: [id number] [address] [place] [id number] ORTransesophageal Echo Report Name: GEORGE MEHTA Study [...] of this mass after consultation with other freight conductor experts and thedecision was made by surgeon [...] - 199 mg/dL 06/14/2024 7:12 AM EST [facility] Comment:Supplemental ranges: <140 mg/dL before meals <180 mg/dL all other times of the day. Blood CAPILLARY BLOOD / Unknown 06/14/2024 7:11 AM EST 06/14/2024 7:12 AM EST Haja Byrnes MD POINT OF CARE TEST O RDERABLES Performing Organization Address City/[facility]/ZIP Co de Phone Number [facility] [place] [address] * POC, GLUCOSE (06/14/2024 4:30 AM EST) Glucometer, POC 85 65 - 199 mg/dL 06/14/2024 4:30 AM EST [facility] Comment:Supplemental ranges: <140 mg/dL before meals <180 mg/dL all other times of the day. Blood CAPILLARY BLOOD / Unknown 06/14/2024 4:30 AM EST 06/14/2024 4:30 AM EST Haja Byrnes MD POINT OF CARE TEST O RDERABLES Performing Organization Address City/[facility]/ZIP Co de Phone Number [facility] [place] [address] * (ABNORMAL) Heparin (unfractionated) Level (06/14/2024 12:12 AM EST) Pathologist [facility] UF Heparin 1.02(HHH) IU/mL 06/14/2024 12:46 AM EST [facility] Comment: [...] EST Shahnaz Scanlon MD HEMATOLOGY ORDERABLE S [facility] [place] [address] * (ABNORMAL) CBC (with Diff) (06/14/2024 12:12 AM EST) Pathologist [facility] White Blood Cell 10.51(H) 4.00 - 9.50 x10(3)/mc L 06/14/2024 12:38 AM EST [facility] Red Blood Cell 4.99 4.58 - 5.54 x10(6)/mc L 06/14/2024 12:38 AM EST [facility] Hemoglobin 14.9 13.7 - 16.5 g/dL 06/14/2024 12:38 AM EST [facility] Hematocrit 45.9 40.5 - [...] 0.90 x10(3)/mc L 06/14/2024 12:38 AM EST [facility] Eos % 3.9 % 06/14/2024 12:38 AM EST [facility] Eos Absolute 0.41(H) 0.00 - 0.40 x10(3)/mc L 06/14/2024 12:38 AM EST [facility] Basophil % 0.8 % 06/14/2024 12:38 AM EST [facility] Baso Absolute 0.08 0.00 - 0.10 x10(3)/mc L 06/14/2024 12:38 AM EST [facility] Immature Gran % 0.6 % 12:38 AM [facility] Immature Gran Absolute 0.06(H) 0.00 - 0.04 x10(3)/mc L 06/14/2024 12:38 AM EST [facility] Blood VENOUS BLOOD SPECIMEN / Unknown Venipuncture / Unknown 06/14/2024 12:12 AM EST 06/14/2024 12:29 AM EST Shahnaz Scanlon MD HEMATOLOGY ORDERABLE S [facility] [place] [address] * Magnesium (06/14/2024 12:12 AM EST) Magnesium 0.74 0.69 - 1.07 mMol/L 06/14/2024 12:57 AM EST [facility] Blood VENOUS BLOOD SPECIMEN / Unknown Venipuncture / Unknown 06/14/2024 12:12 AM EST 06/14/2024 12:29 AM EST Shahnaz Scanlon MD CHEMISTRY ORDERABLES [facility] [place] [address] * (ABNORMAL) Basic Metabolic Panel (06/14/2024 12:12 [...] MD CHEMISTRY ORDERABLES Performing Organization Address [facility]/ZIP Co de Phone Number [facility] [place] [address] * Scan Doc: Implantable Devices (06/14/2024 12:00 AM EST) Narrative 06/14/2024 12:00 AM EST Ordered by an unspecified provider. Scanning Provider MEDIA MGR SCAN EXT O RDR/RSLT * POC, GLUCOSE (06/13/2024 11:12 PM EST) Glucometer, POC 104 65 - 199 mg/dL 06/13/2024 11:13 PM EST [facility] Comment:Supplemental ranges: <140 mg/dL before meals <180 mg/dL all other times of the day. Blood CAPILLARY BLOOD / Unknown 06/13/2024 11:12 PM EST 06/13/2024 11:13 PM EST Haja Byrnes MD POINT OF CARE TEST O RDERABLES Performing Organization Address [facility]/ZIP Co de Phone Number [facility] [place] [address] * (ABNORMAL) POC, GLUCOSE (06/13/2024 8:03 PM EST) Glucometer, POC 206(H) 65 - 199 mg/dL 06/13/2024 8:03 PM EST [facility] Comment:Supplemental ranges: <140 mg/dL before meals <180 mg/dL all other times of the day. Blood CAPILLARY BLOOD / Unknown 06/13/2024 8:03 PM EST 06/13/2024 8:03 PM EST Haja Byrnes MD POINT OF CARE TEST O RDERABLES Performing Organization Address City/[facility]/ZIP Co de Phone Number [facility] [place] [address] * Heparin (unfractionated) Level (06/13/2024 4:11 PM EST) [facility] UF Heparin 0.76 IU/mL 06/13/2024 4:24 PM EST [facility] Comment: [...] EST Shahnaz Scanlon MD HEMATOLOGY ORDERABLE S [facility] [place] [address] * ABORH RECHECK (06/13/2024 4:11 PM EST) [facility] ABORH Recheck O POSITIVE 06/13/2024 4:[address] [facility] Blood VENOUS BLOOD SPECIMEN / Unknown Venipuncture / Unknown 06/13/2024 4:11 PM EST 06/13/2024 4:19 PM EST Haja Byrnes MD BLOOD BANK LAB ORDER [facility] [place] [address] * (ABNORMAL) POC, GLUCOSE (06/13/2024 4:09 PM EST) Glucometer, POC 216(H) 65 - 199 mg/dL 06/13/2024 4:10 PM EST [facility] Comment:Supplemental ranges: <140 mg/dL before meals <180 mg/dL all other times of the day. Blood CAPILLARY BLOOD / Unknown 06/13/2024 4:09 PM EST 06/13/2024 4:10 PM EST Haja Byrnes MD POINT OF CARE TEST O RDERABLES [facility] [place] [address] * Type and screen ([facility]/CGP/RAFITA) (06/13/2024 11:53 AM EST) [facility] ABORH Type O POSITIVE 06/13/2024 1:[address] [facility] PATIENT HISTORY Not Found 06/13/2024 1:[address] [facility] Expires at [id number] on: 06/16/2024 06/13/2024 1:[address] [facility] ANTIBODY SCREEN AUTOMATED Negative 06/13/2024 1:[address] [facility] T&S only valid at [facility] 06/13/2024 1:[address] [facility] Blood VENOUS BLOOD SPECIMEN / Unknown Venipuncture / Unknown 06/13/2024 11:53 AM EST 06/13/2024 11:[address] [facility] - 06/13/2024 1:16 PM EST This Type and Screen result is only valid at the [facility] Haja Byrnes MD BLOOD BANK LAB ORDER [facility] [place] [address] * POC, GLUCOSE (06/13/2024 11:50 AM EST) Glucometer, POC 178 65 - 199 mg/dL 06/13/2024 11:51 AM EST [facility] Comment:Supplemental ranges: <140 mg/dL before meals <180 mg/dL all other times of the day. Blood CAPILLARY BLOOD / Unknown 06/13/2024 11:50 AM EST 06/13/2024 11:51 AM EST Haja Byrnes MD POINT OF CARE TEST O RDERABLES [facility] [place] [address] * XR Chest One View (06/13/2024 10:35 AM EST) WORKSTATION ID [id number] RAD Anatomical Region Laterality Modality Chest N/A [...] have questions please contact the health child adolescent care that requested your imaging first. ? Narrative [...] who have questions please contactthe health child adolescent care that requested your imaging first. Haja Byrnes MD IMG DX ORDERABLES * CARDIAC CATHETERIZATION (06/13/2024 9:02 AM EST) Anatomical Region Laterality Modality Other Narrative 06/15/2024 9:07 AM EST ?[facility] ? Cardiac Catheterization/Intervention Report ? Patient Name: Tyson, George L. ? Procedure Date: 06/13/2024 ? A #: [id number] ? Primary Physician: Nuha Shen I ? Case #: [id number] ? File Name: [id number] ? Catheterization Order Number: [id number] ? [facility] ? Final Report [place], [place] ? Patient Name: ? George L. Tyson ? ID#: ?[id number] ? : ?1955 ? Procedure Date: ? June 13, 2024 ?Case #: ? [id number] ? Room: ? 6 ? Case Physician: [...] ?was designated as ASA Class IV. The [facility] clinical frailty scale is 5: ?Mildly [...] procedure was Urgent. The indication for ?the cath lab technologist visit is ACS greater than 24 hrs [...] angiography, vascular ?ultrasound and IABP insertion in cath lab technologist. ? Nuha I Hermelinda, M.D. ? Electronically Signed by: Nuha Reyesry, M.D. ? Report Finalized: 06/15/2024 ??08:59 ? Procedure Note Nuha Shen MD - 06/15/2024 [facility] Cardiac Catheterization/Intervention Report Patient Name: George Mehta Procedure Date: 06/13/2024 A #: [id number] Primary Physician: Nuha Shen I Case #: [id number] File Name: [id number] Catheterization Order Number: [id number] [facility] FinalReport [place], [place] Patient Name: George Mehta ID#:[id number] :1955 Procedure Date: June 13, 2024 Case [...] was designated as ASA Class IV. The [facility] clinical frailty scale is5: Mildly Frail. [...] diagnostic procedure was Urgent. The indicationfor the cath lab technologist visit is ACS greater than 24 hrs [...] site angiography,vascular ultrasound and IABP insertion in cath lab technologist. Nuha Shen M.D. Electronically Signed by: Nuha Shen M.D. Report Finalized: 06/15/2024 08:59 Nuha Rojo MD CARDIAC CATH ORDERA BLES * Potassium (06/13/2024 7:48 AM EST) Potassium 4.5 3.5 - 5.0 mMol/L 06/13/2024 8:28 AM EST [facility] Blood VENOUS BLOOD SPECIMEN / Unknown Venipuncture / Unknown 06/13/2024 7:48 AM EST 06/13/2024 7:55 AM EST Shahnaz Scanlon MD CHEMISTRY ORDERABLES [facility] [place] [id number] * POC, GLUCOSE (06/13/2024 7:41 AM EST) Glucometer, POC 126 65 - 199 mg/dL 06/13/2024 7:41 AM EST [facility] Comment:Supplemental ranges: <140 mg/dL before meals <180 mg/dL all other times of the day. Blood CAPILLARY BLOOD / Unknown 06/13/2024 7:41 AM EST 06/13/2024 7:41 AM EST Ethel Carrillo MD POINT OF CARE TEST O NIKA Performing Organization Address [facility] de Phone Number [facility] [place] [address] * POC, GLUCOSE (06/13/2024 3:25 AM EST) Glucometer, POC 99 65 - 199 mg/dL 06/13/2024 3:25 AM EST [facility] Comment:Supplemental ranges: <140 mg/dL before meals <180 mg/dL all other times of the day. Blood CAPILLARY BLOOD / Unknown 06/13/2024 3:25 AM EST 06/13/2024 3:25 AM EST Ethel Carrillo MD POINT OF CARE TEST O NIKA Performing Organization Address [facility] de Phone Number [facility] [place] [address] * Heparin (unfractionated) Level (06/13/2024 2:26 AM EST) UF Heparin 0.60 IU/mL 06/13/2024 3:32 AM EST [facility] Comment: [...] EST Shahnaz Scanlon MD HEMATOLOGY ORDERABLE S [facility] [place] [address] * (ABNORMAL) CBC (with Diff) (06/13/2024 2:26 [...] EST Shahnaz Scanlon MD HEMATOLOGY ORDERABLE S [facility] [place] [address] * Magnesium (06/13/2024 2:26 AM EST) Magnesium 0.78 0.69 - 1.07 mMol/L 06/13/2024 2:58 AM EST [facility] Blood VENOUS BLOOD SPECIMEN / Unknown Venipuncture / Unknown 06/13/2024 2:26 AM EST 06/13/2024 2:31 AM EST Shahnaz Scanlon MD CHEMISTRY ORDERABLES Performing Organization Address City/[facility]/ZIP Co de Phone Number [facility] [place] [address] * (ABNORMAL) Basic Metabolic Panel (06/13/2024 2:26 AM EST) Glucose 121 65 - 199 mg/dL 06/13/2024 2:58 AM [facility] Comment:Glucose Concentratio n >=200 mg/dL plus symptoms is consistent with Diabetes Mellitus. Blood Urea Nitrogen 21(H) 10 - 20 mg/dL 06/13/2024 2:58 AM [facility] Creatinine 1.07 0.80 - 1.50 mg/dL 06/13/2024 2:58 AM [facility] Sodium 136 [...] - 15 mMol/L 06/13/2024 2:58 AM EST [facility] Calcium 9.7 8.5 - 10.5 mg/dL 06/13/2024 2:58 AM EST [facility] Est Glomerular Filtration Rate - Male 76 mL/min/1. 73 m?? 06/13/2024 2:58 AM EST [facility] Comment: This patient's estimated [...] AM EST Shahnaz Scanlon MD CHEMISTRY ORDERABLES [facility] [place] [address] * POC, GLUCOSE (06/12/2024 11:53 PM EST) [facility] Signature Glucometer, POC 141 65 - 199 mg/dL 06/12/2024 11:54 PM EST [facility] Comment:Supplemental ranges: <140 mg/dL before meals <180 mg/dL all other times of the day. Blood CAPILLARY BLOOD / Unknown 06/12/2024 11:53 PM EST 06/12/2024 11:54 PM EST Ethel Carrillo MD POINT OF CARE TEST O RDERABLES Performing Organization Address City/[facility]/ZIP Co de Phone Number [facility] [place] [address] * POC, GLUCOSE (06/12/2024 7:32 PM EST) Glucometer, POC 158 65 - 199 mg/dL 06/12/2024 7:32 PM EST [facility] Comment:Supplemental ranges: <140 mg/dL before meals <180 mg/dL all other times of the day. Blood CAPILLARY BLOOD / Unknown 06/12/2024 7:32 PM EST 06/12/2024 7:32 PM EST Ethel Carrillo MD POINT OF CARE TEST O RDBECKIE Performing Organization Address City/[facility]/ZIP Co de Phone Number [facility] [place] [address] * POC, GLUCOSE (06/12/2024 3:41 PM EST) Glucometer, POC 113 65 - 199 mg/dL 06/12/2024 3:41 PM EST [facility] Comment:Supplemental ranges: <140 mg/dL before meals <180 mg/dL all other times of the day. Blood CAPILLARY BLOOD / Unknown 06/12/2024 3:41 PM EST 06/12/2024 3:41 PM EST Ethel Carrillo MD POINT OF CARE TEST O RDERAPIETER Performing Organization Address City/[facility]/ZIP Co de Phone Number [facility] [place] [address] * Potassium (06/12/2024 2:19 PM EST) Potassium 4.5 3.5 - 5.0 mMol/L 06/12/2024 2:45 PM EST [facility] Blood VENOUS BLOOD SPECIMEN / Unknown Venipuncture / Unknown 06/12/2024 2:19 PM EST 06/12/2024 2:23 PM EST Shahnaz Scanlon MD CHEMISTRY ORDERABLES [facility] [place] [address] * (ABNORMAL) POC, GLUCOSE (06/12/2024 11:21 AM EST) Glucometer, POC 207(H) 65 - 199 mg/dL 06/12/2024 11:21 AM EST [facility] Comment:Supplemental ranges: <140 mg/dL before meals <180 mg/dL all other times of the day. Blood CAPILLARY BLOOD / Unknown 06/12/2024 11:21 AM EST 06/12/2024 11:22 AM EST Ethel Carrillo MD POINT OF CARE TEST O NIKA Performing Organization Address City/[facility]/ZIP Co de Phone Number [facility] [place] [address] * POC, GLUCOSE (06/12/2024 8:00 AM EST) Glucometer, POC 169 65 - 199 mg/dL 06/12/2024 8:01 AM EST [facility] Comment:Supplemental ranges: <140 mg/dL before meals <180 mg/dL all other times of the day. Blood CAPILLARY BLOOD / Unknown 06/12/2024 8:00 AM EST 06/12/2024 8:01 AM EST Ethel Carrillo MD POINT OF CARE TEST O NIKA [facility] [place] [address] * POC, GLUCOSE (06/12/2024 4:25 AM EST) Glucometer, POC 132 65 - 199 mg/dL 06/12/2024 4:26 AM EST [facility] Comment:Supplemental ranges: <140 mg/dL before meals <180 mg/dL all other times of the day. Blood CAPILLARY BLOOD / Unknown 06/12/2024 4:25 AM EST 06/12/2024 4:26 AM EST Ethel Carrillo MD POINT OF CARE TEST O RDERABLES Performing Organization Address [facility]/ZIP Co de Phone Number [facility] [place] [address] * Heparin (unfractionated) Level (06/12/2024 3:03 AM EST) UF Heparin 0.55 IU/mL 06/12/2024 3:44 AM EST [facility] Comment: [...] MD HEMATOLOGY ORDERABLE S Performing Organization Address City/[facility]/ZIP Co de Phone Number [facility] [place] [address] * (ABNORMAL) CBC (with Diff) (06/12/2024 3:03 AM EST) White Blood Cell 9.69(H) 4.00 - 9.50 x10(3)/mc L 06/12/2024 3:36 AM EST [facility] Red Blood Cell 5.05 4.58 - 5.54 x10(6)/mc L 06/12/2024 3:36 AM EST [facility] Hemoglobin 15.2 13.7 - [...] % 11.1 % 06/12/2024 3:36 AM EST [facility] Monocyte Absolute 1.08(H) 0.30 - 0.90 x10(3)/mc L 06/12/2024 3:36 AM [facility] Eos % 4.1 % 06/12/2024 3:36 AM [facility] Eos Absolute 0.40 0.00 - 0.40 x10(3)/mc L 06/12/2024 3:36 AM EST [facility] Basophil % 0.8 % [...] EST Shahnaz Scanlon MD [place] [address] * Magnesium (06/12/2024 3:03 AM EST) Magnesium 0.79 0.69 - 1.07 mMol/L 06/12/2024 4:01 AM [facility] Blood VENOUS BLOOD SPECIMEN / Unknown Venipuncture / Unknown 06/12/2024 3:03 AM EST 06/12/2024 3:30 AM EST Shahnaz Scanlon MD CHEMISTRY ORDERABLES [facility] [place] [address] * (ABNORMAL) Basic Metabolic Panel (06/12/2024 3:03 [...] MD CHEMISTRY ORDERABLES Performing Organization Address [facility] Co de Phone Number [facility] [place] [address] * POC, GLUCOSE (06/11/2024 11:56 PM EST) Glucometer, POC 135 65 - 199 mg/dL 06/11/2024 11:56 PM EST [facility] Comment:Supplemental ranges: <140 mg/dL before meals <180 mg/dL all other times of the day. Blood CAPILLARY BLOOD / Unknown 06/11/2024 11:56 PM EST 06/11/2024 11:56 PM EST Ethel Carrillo MD POINT OF CARE TEST Abimael MAHER Performing Organization Address [facility] de Phone Number [facility] [place] [address] * (ABNORMAL) POC, GLUCOSE (06/11/2024 8:25 PM EST) Glucometer, POC 210(H) 65 - 199 mg/dL 06/11/2024 8:26 PM EST [facility] Comment:Supplemental ranges: <140 mg/dL before meals <180 mg/dL all other times of the day. Blood CAPILLARY BLOOD / Unknown 06/11/2024 8:25 PM EST 06/11/2024 8:26 PM EST Ethel Carrillo MD POINT OF CARE TEST O NIKA Performing Organization Address [facility] Co de Phone Number [facility] [place] [address] * POC, GLUCOSE (06/11/2024 4:24 PM EST) Glucometer, POC 81 65 - 199 mg/dL 06/11/2024 4:24 PM EST [facility] Comment:Supplemental ranges: <140 mg/dL before meals <180 mg/dL all other times of the day. Blood CAPILLARY BLOOD / Unknown 06/11/2024 4:24 PM EST 06/11/2024 4:25 PM EST Ethel Carrillo MD POINT OF CARE TEST O RDERAPIETER Performing Organization Address City/[facility]/ZIP Co de Phone Number [facility] [place] [address] * (ABNORMAL) POC, GLUCOSE (06/11/2024 11:08 AM EST) Glucometer, POC 233(H) 65 - 199 mg/dL 06/11/2024 11:08 AM EST [facility] Comment:Supplemental ranges: <140 mg/dL before meals <180 mg/dL all other times of the day. Blood CAPILLARY BLOOD / Unknown 06/11/2024 11:08 AM EST 06/11/2024 11:08 AM EST Ethel Carrillo MD POINT OF CARE TEST O NIKA Performing Organization Address [facility]/ZIP Co de Phone Number [facility] [place] [address] * POC, GLUCOSE (06/11/2024 7:48 AM EST) Glucometer, POC 184 65 - 199 mg/dL 06/11/2024 7:49 AM EST [facility] Comment:Supplemental ranges: <140 mg/dL before meals <180 mg/dL all other times of the day. Blood CAPILLARY BLOOD / Unknown 06/11/2024 7:48 AM EST 06/11/2024 7:49 AM EST Melida Valdes MD POINT OF CARE TEST O RDERAPIETER Performing Organization Address City/[facility]/ZIP Co de Phone Number [facility] [place] [address] * Heparin (unfractionated) Level (06/11/2024 5:31 AM EST) UF Heparin 0.55 IU/mL 06/11/2024 6:10 AM EST [facility] Comment: [...] EST Shahnaz Scanlon MD HEMATOLOGY ORDERABLE S [facility] [place] [address] * POC, GLUCOSE (06/11/2024 3:57 AM EST) Glucometer, POC 132 65 - 199 mg/dL 06/11/2024 3:58 AM EST [facility] Comment:Supplemental ranges: <140 mg/dL before meals <180 mg/dL all other times of the day. Blood CAPILLARY BLOOD / Unknown 06/11/2024 3:57 AM EST 06/11/2024 3:58 AM EST Melida Valdes MD POINT OF CARE TEST O RDERABLES [facility] [place] [address] * (ABNORMAL) CBC (with Diff) (06/11/2024 2:13 AM [facility]) [facility] White Blood Cell 9.91(H) 4.00 - 9.50 [...] EST Shahnaz Scanlon MD HEMATOLOGY ORDERABLE S [facility] [place] [address] * Magnesium (06/11/2024 2:13 AM EST) Magnesium 0.83 0.69 - 1.07 mMol/L 06/11/2024 2:51 AM EST [facility] Blood VENOUS BLOOD SPECIMEN / Unknown Venipuncture / Unknown 06/11/2024 2:13 AM EST 06/11/2024 2:19 AM EST Shahnaz Scanlon MD CHEMISTRY ORDERABLES [facility] [place] [address] * (ABNORMAL) Basic Metabolic Panel (06/11/2024 2:13 [...] mL/min/1. 73 m?? 06/11/2024 2:51 AM EST [facility] Comment: This patient's estimated [...] MD CHEMISTRY ORDERABLES Performing Organization Address [facility]/ZIP Co de Phone Number [facility] [place] [address] * POC, GLUCOSE (06/11/2024 12:50 AM EST) Glucometer, POC 144 65 - 199 mg/dL 06/11/2024 12:51 AM EST [facility] Comment:Supplemental ranges: <140 mg/dL before meals <180 mg/dL all other times of the day. Blood CAPILLARY BLOOD / Unknown 06/11/2024 12:50 AM EST 06/11/2024 12:51 AM EST Melida Valdes MD POINT OF CARE TEST O RDERABLES Performing Organization Address City/[facility]/ZIP Co de Phone Number [facility] [place] [address] * (ABNORMAL) POC, GLUCOSE (06/10/2024 7:22 PM EST) Glucometer, POC 236(H) 65 - 199 mg/dL 06/10/2024 7:22 PM EST [facility] Comment:Supplemental ranges: <140 mg/dL before meals <180 mg/dL all other times of the day. Blood CAPILLARY BLOOD / Unknown 06/10/2024 7:22 PM EST 06/10/2024 7:22 PM EST Melida Valdes MD POINT OF CARE TEST O RDERABLES [facility] [place] [address] * (ABNORMAL) Blood Gas, Venous (06/10/2024 5:42 PM EST) pH, Venous 7.34 7.32 - 7.42 06/10/2024 5:50 PM EST [facility] PCO2, Venous 52 38 - 58 mmHg 06/10/2024 5:50 PM [facility] PO2, Venous 24 16 - 65 mmHg 06/10/2024 5:50 PM EST [facility] Bicarbonate, Venous 27.4 22 - 31 mmol/L 06/10/2024 5:50 PM [facility] Base Excess, Venous 1.7(L) 1.9 - 4.5 mmol/L 06/10/2024 5:50 PM [facility] Hemoglobin, Venous 16.8(H) 13.7 - 16.5 g/dL 06/10/2024 5:50 PM [facility] Oxyhemoglobin, Venous 39.0 % 06/10/2024 5:50 PM EST [facility] Carboxyhemoglobin , Venous 0.3 % 06/10/2024 5:50 PM [facility] Comment: Nonsmokers: 0.5-1.5% COHB ?? Smokers: Variable ??but usually less than 10% ?? Toxic: 20-30% COHB ?? Lethal: Greater than 60% COHB Methemoglobin, Venous 0.5 <=1.5 % 06/10/2024 5:50 PM EST [facility] Sodium, Venous 137 135 - 145 mmol/L 06/10/2024 5:50 PM EST [facility] Chloride, Venous 96(L) 98 [...] PM EST Melida Valdes MD CHEMISTRY ORDERABLES [facility] [place] [address] * POC, GLUCOSE (06/10/2024 5:35 PM EST) Glucometer, POC 123 65 - 199 mg/dL 06/10/2024 5:35 PM [facility] Comment:Supplemental ranges: <140 mg/dL before meals <180 mg/dL all other times of the day. Blood CAPILLARY BLOOD / Unknown 06/10/2024 5:35 PM EST 06/10/2024 5:35 PM EST Melida Valdes MD POINT OF CARE TEST O RDERABLES [facility] [place] [address] * (ABNORMAL) POC, GLUCOSE (06/10/2024 11:25 AM EST) Glucometer, POC 216(H) 65 - 199 mg/dL 06/10/2024 11:25 AM EST [facility] Comment:Supplemental ranges: <140 mg/dL before meals <180 mg/dL all other times of the day. Blood CAPILLARY BLOOD / Unknown 06/10/2024 11:25 AM EST 06/10/2024 11:25 AM EST Melida Valdes MD POINT OF CARE TEST O NIKA Performing Organization Address City/[facility]/ZIP Co de Phone Number [facility] [place] [address] * (ABNORMAL) POC, GLUCOSE (06/10/2024 7:46 AM EST) Glucometer, POC 206(H) 65 - 199 mg/dL 06/10/2024 7:46 AM EST [facility] Comment:Supplemental ranges: <140 mg/dL before meals <180 mg/dL all other times of the day. Blood CAPILLARY BLOOD / Unknown 06/10/2024 7:46 AM EST 06/10/2024 7:46 AM EST Melida Valdes MD POINT OF CARE TEST O NIKA Performing Organization Address [facility] Co de Phone Number [facility] [place] [address] * POC, GLUCOSE (06/10/2024 4:23 AM EST) Glucometer, POC 154 65 - 199 mg/dL 06/10/2024 4:24 AM EST [facility] Comment:Supplemental ranges: <140 mg/dL before meals <180 mg/dL all other times of the day. Blood CAPILLARY BLOOD / Unknown 06/10/2024 4:23 AM EST 06/10/2024 4:24 AM EST Melida Valdes MD POINT OF CARE TEST O NIKA [facility] [place] [address] * (ABNORMAL) CBC (with Diff) (06/10/2024 1:55 [...] EST Shahnaz Scanlon MD HEMATOLOGY ORDERABLE S [facility] [place] [address] * Magnesium (06/10/2024 1:55 AM EST) Magnesium 0.83 0.69 - 1.07 mMol/L 06/10/2024 2:37 AM EST [facility] Blood VENOUS BLOOD SPECIMEN / Unknown Venipuncture / Unknown 06/10/2024 1:55 AM EST 06/10/2024 2:05 AM EST Shahnaz Scanlon MD CHEMISTRY ORDERABLES [facility] [place] [address] * (ABNORMAL) Basic Metabolic Panel (06/10/2024 1:55 [...] 77 mL/min/1. 73 m?? 06/10/2024 2:37 AM [facility] Comment: This [...] AM EST Shahnaz Scanlon MD CHEMISTRY ORDERABLES [facility] [place] [address] * Heparin (unfractionated) Level (06/10/2024 1:54 AM EST) UF Heparin 0.56 IU/mL 06/10/2024 2:41 AM EST [facility] Comment: [...] MD HEMATOLOGY ORDERABLE S Performing Organization Address City/[facility]/ZIP Co de Phone Number [facility] [place] [address] * POC, GLUCOSE (06/10/2024 12:05 AM EST) Glucometer, POC 125 65 - 199 mg/dL 06/10/2024 12:05 AM EST [facility] Comment:Supplemental ranges: <140 mg/dL before meals <180 mg/dL all other times of the day. Blood CAPILLARY BLOOD / Unknown 06/10/2024 12:05 AM EST 06/10/2024 12:05 AM EST Melida Valdes MD POINT OF CARE TEST O RDERAPIETER Performing Organization Address [facility]/ZIP Co de Phone Number [facility] [place] [address] * POC, GLUCOSE (06/09/2024 8:36 PM EST) Glucometer, POC 197 65 - 199 mg/dL 06/09/2024 8:36 PM EST [facility] Comment:Supplemental ranges: <140 mg/dL before meals <180 mg/dL all other times of the day. Blood CAPILLARY BLOOD / Unknown 06/09/2024 8:36 PM EST 06/09/2024 8:36 PM EST Melida Valdes MD POINT OF CARE TEST O NIKA [facility] [place] [address] * POC, GLUCOSE (06/09/2024 5:27 PM EST) Glucometer, POC 174 65 - 199 mg/dL 06/09/2024 5:28 PM EST [facility] Comment:Supplemental ranges: <140 mg/dL before meals <180 mg/dL all other times of the day. Blood CAPILLARY BLOOD / Unknown 06/09/2024 5:27 PM EST 06/09/2024 5:28 PM EST Melida Valdes MD POINT OF CARE TEST O NIKA [facility] [place] [address] * (ABNORMAL) POC, GLUCOSE (06/09/2024 11:52 AM EST) Glucometer, POC 211(H) 65 - 199 mg/dL 06/09/2024 11:52 AM EST [facility] Comment:Supplemental ranges: <140 mg/dL before meals <180 mg/dL all other times of the day. Blood CAPILLARY BLOOD / Unknown 06/09/2024 11:52 AM EST 06/09/2024 11:52 AM EST Melida Vlades MD POINT OF CARE TEST Abimael MAHER Performing Organization Address City/[facility]/ZIP Co de Phone Number [facility] [place] [address] * Potassium (06/09/2024 8:25 AM EST) Potassium 4.6 3.5 - 5.0 mMol/L 06/09/2024 10:09 AM EST [facility] Blood VENOUS BLOOD SPECIMEN / Unknown Venipuncture / Unknown 06/09/2024 8:25 AM EST 06/09/2024 8:42 AM EST Shahnaz Scanlon MD CHEMISTRY ORDERABLES Performing Organization Address City/[facility]/ZIP Co de Phone Number [facility] [place] [address] * (ABNORMAL) POC, GLUCOSE (06/09/2024 8:10 AM EST) Glucometer, POC 209(H) 65 - 199 mg/dL 06/09/2024 8:10 AM EST [facility] Comment:Supplemental ranges: <140 mg/dL before meals <180 mg/dL all other times of the day. Blood CAPILLARY BLOOD / Unknown 06/09/2024 8:10 AM EST 06/09/2024 8:11 AM EST Melida Valdes MD POINT OF CARE TEST O NIKA Performing Organization Address [facility] Co de Phone Number [facility] [place] [address] * POC, GLUCOSE (06/09/2024 4:40 AM EST) Glucometer, POC 131 65 - 199 mg/dL 06/09/2024 4:40 AM EST [facility] Comment:Supplemental ranges: <140 mg/dL before meals <180 mg/dL all other times of the day. Blood CAPILLARY BLOOD / Unknown 06/09/2024 4:40 AM EST 06/09/2024 4:41 AM EST Melida Valdes MD POINT OF CARE TEST O NIKA Performing Organization Address [facility] Co de Phone Number [facility] [place] [address] * Heparin (unfractionated) Level (06/09/2024 2:12 AM EST) UF Heparin 0.55 IU/mL 06/09/2024 2:33 AM EST [facility] Comment: [...] EST Shahnaz Scanlon MD HEMATOLOGY ORDERABLE S [facility] [place] [address] * (ABNORMAL) CBC (with Diff) (06/09/2024 2:12 [...] 0.04 x10(3)/mc L 06/09/2024 2:44 AM EST [facility] Blood VENOUS BLOOD SPECIMEN / Unknown Venipuncture / Unknown 06/09/2024 2:12 AM EST 06/09/2024 2:21 AM EST Shahnaz Scanlon MD HEMATOLOGY ORDERABLE S Performing Organization Address [facility]/ZIP Co de Phone Number [facility] [place] [address] * Magnesium (06/09/2024 2:12 AM EST) Magnesium 0.83 0.69 - 1.07 mMol/L 06/09/2024 2:52 AM [facility] Blood VENOUS BLOOD SPECIMEN / Unknown Venipuncture / Unknown 06/09/2024 2:12 AM EST 06/09/2024 2:22 AM EST Shahnaz Scanlon MD CHEMISTRY ORDERABLES Performing Organization Address City/[facility] Co de Phone Number [facility] [place] [address] * (ABNORMAL) Basic Metabolic Panel (06/09/2024 2:12 [...] - 31 mMol/L 06/09/2024 2:52 AM EST [facility] Anion Gap 11 5 - 15 mMol/L 06/09/2024 2:52 AM EST [facility] Calcium 9.7 8.5 - 10.5 mg/dL 06/09/2024 2:52 AM EST [facility] Est Glomerular Filtration Rate - Male 73 mL/min/1. 73 m?? 06/09/2024 2:52 AM EST [facility] Comment: This patient's estimated [...] Scanlon MD CHEMISTRY ORDERABLES Performing Organization Address City/[facility]/ZIP Co de Phone Number [facility] [place] [address] * POC, GLUCOSE (06/09/2024 12:34 AM EST) [facility] Signature Glucometer, POC 186 65 - 199 mg/dL 06/09/2024 12:34 AM EST [facility] Comment:Supplemental ranges: <140 mg/dL before meals <180 mg/dL all other times of the day. Blood CAPILLARY BLOOD / Unknown 06/09/2024 12:34 AM EST 06/09/2024 12:34 AM EST Melida Valdes MD POINT OF CARE TEST O RDERABLES [facility] [place] [address] * POC, GLUCOSE (06/08/2024 8:27 PM EST) Glucometer, POC 176 65 - 199 mg/dL 06/08/2024 8:28 PM EST [facility] Comment:Supplemental ranges: <140 mg/dL before meals <180 mg/dL all other times of the day. Blood CAPILLARY BLOOD / Unknown 06/08/2024 8:27 PM EST 06/08/2024 8:28 PM EST Melida Valdes MD POINT OF CARE TEST O NIKA Performing Organization Address [facility] de Phone Number [facility] [place] [address] * POC, GLUCOSE (06/08/2024 4:16 PM EST) Glucometer, POC 159 65 - 199 mg/dL 06/08/2024 4:16 PM EST [facility] Comment:Supplemental ranges: <140 mg/dL before meals <180 mg/dL all other times of the day. Blood CAPILLARY BLOOD / Unknown 06/08/2024 4:16 PM EST 06/08/2024 4:16 PM EST Melida Valdes MD POINT OF CARE TEST O NIKA Performing Organization Address [facility] Co de Phone Number [facility] [place] [address] * (ABNORMAL) POC, GLUCOSE (06/08/2024 12:35 PM EST) Glucometer, POC 226(H) 65 - 199 mg/dL 06/08/2024 12:35 PM EST [facility] Comment:Supplemental ranges: <140 mg/dL before meals <180 mg/dL all other times of the day. Blood CAPILLARY BLOOD / Unknown 06/08/2024 12:35 PM EST 06/08/2024 12:35 PM EST Melida Valdes MD POINT OF CARE TEST O NIKA Performing Organization Address City/[facility] Co de Phone Number [facility] [place] [address] * POC, GLUCOSE (06/08/2024 8:10 AM EST) Glucometer, POC 190 65 - 199 mg/dL 06/08/2024 8:14 AM EST [facility] Comment:Supplemental ranges: <140 mg/dL before meals <180 mg/dL all other times of the day. Blood CAPILLARY BLOOD / Unknown 06/08/2024 8:10 AM EST 06/08/2024 8:14 AM EST Melida Valdes MD POINT OF CARE TEST O NIKA Performing Organization Address [facility] de Phone Number [facility] [place] [address] * POC, GLUCOSE (06/08/2024 4:09 AM EST) Glucometer, POC 151 65 - 199 mg/dL 06/08/2024 4:10 AM EST [facility] Comment:Supplemental ranges: <140 mg/dL before meals <180 mg/dL all other times of the day. Blood CAPILLARY BLOOD / Unknown 06/08/2024 4:09 AM EST 06/08/2024 4:10 AM EST Melida Valdes MD POINT OF CARE TEST O NIKA Performing Organization Address City/[facility] Co de Phone Number [facility] [place] [address] * Heparin (unfractionated) Level (06/08/2024 3:21 AM EST) UF Heparin 0.46 IU/mL 06/08/2024 3:41 AM EST [facility] Comment: [...] [facility] Co de Phone Number [facility] [place] [place] [address] * (ABNORMAL) CBC (with Diff) (06/08/2024 3:21 AM EST) White Blood Cell 9.92(H) 4.00 - 9.50 x10(3)/mc L 06/08/2024 3:34 AM EST [facility] Red Blood Cell 5.09 4.58 - 5.54 x10(6)/mc L 06/08/2024 3:34 AM EST [facility] Hemoglobin 15.1 13.7 - [...] % 0.8 % 06/08/2024 3:34 AM EST [facility] Baso Absolute 0.08 0.00 - 0.10 x10(3)/mc L 06/08/2024 3:34 AM [facility] Immature Gran % 0.5 % 3:34 AM [facility] Immature Gran Absolute 0.05(H) 0.00 - 0.04 x10(3)/mc L 06/08/2024 3:34 AM EST [facility] Blood VENOUS BLOOD SPECIMEN / Unknown Venipuncture / Unknown 06/08/2024 3:21 AM EST 06/08/2024 3:27 AM EST Shahnaz Scanlon MD HEMATOLOGY ORDERABLE S Performing Organization Address City/[facility]/ZIP Co de Phone Number [facility] [place] [address] * Magnesium (06/08/2024 3:21 AM EST) Magnesium 0.84 0.69 - 1.07 mMol/L 06/08/2024 3:59 AM [facility] Blood VENOUS BLOOD SPECIMEN / Unknown Venipuncture / Unknown 06/08/2024 3:21 AM EST 06/08/2024 3:27 AM EST Shahnaz Scanlon MD CHEMISTRY ORDERABLES [facility] [place] [address] * (ABNORMAL) Basic Metabolic Panel (06/08/2024 3:21 AM EST) Glucose 173 65 - 199 mg/dL 06/08/2024 3:59 AM [facility] Comment:Glucose Concentratio n >=200 mg/dL plus symptoms is consistent with Diabetes Mellitus. Blood Urea Nitrogen 25(H) 10 - 20 mg/dL 06/08/2024 3:59 AM [facility] Creatinine 1.09 0.80 - 1.50 mg/dL 06/08/2024 3:59 AM EST [facility] Sodium 135 135 - [...] mL/min/1. 73 m?? 06/08/2024 3:59 AM EST [facility] Comment: This patient's estimated [...] AM EST Shahnaz Scanlon MD CHEMISTRY ORDERABLES [facility] [place] [address] * POC, GLUCOSE (06/07/2024 11:57 PM EST) Glucometer, POC 188 65 - 199 mg/dL 06/07/2024 11:57 PM EST [facility] Comment:Supplemental ranges: <140 mg/dL before meals <180 mg/dL all other times of the day. Blood CAPILLARY BLOOD / Unknown 06/07/2024 11:57 PM EST 06/07/2024 11:58 PM EST Melida Valdes MD POINT OF CARE TEST O NIKA Performing Organization Address City/[facility]/ZIP Co de Phone Number [facility] [place] [address] * POC, GLUCOSE (06/07/2024 8:05 PM EST) Glucometer, POC 118 65 - 199 mg/dL 06/07/2024 8:06 PM EST [facility] Comment:Supplemental ranges: <140 mg/dL before meals <180 mg/dL all other times of the day. Blood CAPILLARY BLOOD / Unknown 06/07/2024 8:05 PM EST 06/07/2024 8:06 PM EST Melida Valdes MD POINT OF CARE TEST O NIKA Performing Organization Address [facility] Co de Phone Number [facility] [place] [address] * Potassium (06/07/2024 5:22 PM EST) Potassium 4.6 3.5 - 5.0 mMol/L 06/07/2024 5:59 PM EST [facility] Blood VENOUS BLOOD SPECIMEN / Unknown Venipuncture / Unknown 06/07/2024 5:22 PM EST 06/07/2024 5:26 PM EST Shahnaz Scanlon MD CHEMISTRY ORDERABLES Performing Organization Address City/[facility] Co de Phone Number [facility] [place] [address] * POC, GLUCOSE (06/07/2024 4:31 PM EST) Glucometer, POC 174 65 - 199 mg/dL 06/07/2024 4:34 PM EST [facility] Comment:Supplemental ranges: <140 mg/dL before meals <180 mg/dL all other times of the day. Blood CAPILLARY BLOOD / Unknown 06/07/2024 4:31 PM EST 06/07/2024 4:34 PM EST Melida Valdes MD POINT OF CARE TEST O RDERABLES [facility] [place] [address] * MRI Cardiac Morphology Function wwo Contrast (06/07/2024 1:10 PM EST) Pathologist [employer] WORKSTATION ID [id number] DH RAD Anatomical Region Laterality Modality Magnetic [...] - Mildly dilated left ventricle size with [id number] decreased LV systolic function. ??LV ejection fraction [...] have questions please contact the health child adolescent care that requested your imaging first. ? Narrative [...] VENTRICLE: Mildly dilated left ventricle size with [id number] decreased LV systolic function. ??LV ejection fraction [...] VENTRICLE: Mildly dilated left ventricle size with wgtkibsk-[id number] decreasedLV systolic function. LV ejection fraction is [...] - Mildly dilated left ventricle size with rcjwwsdd-tg-irykfzem decreasedLV systolic function. LV ejection fraction is [...] who have questions please contactthe health child adolescent care that requested your imaging first. Delroy Fofana MD [facility] [place] * (ABNORMAL) POC, GLUCOSE (06/07/2024 11:05 AM EST) Glucometer, POC 221(H) 65 - 199 mg/dL 06/07/2024 11:06 AM EST [facility] Comment:Supplemental ranges: <140 mg/dL before meals <180 mg/dL all other times of the day. Blood CAPILLARY BLOOD / Unknown 06/07/2024 11:05 AM EST 06/07/2024 11:06 AM EST Melida Valdes MD POINT OF CARE TEST O RDERABLES [facility] [place] [address] * (ABNORMAL) POC, GLUCOSE (06/07/2024 11:03 AM EST) Glucometer, POC 250(H) 65 - 199 mg/dL 06/07/2024 11:04 AM EST [facility] Comment:Supplemental ranges: <140 mg/dL before meals <180 mg/dL all other times of the day. Blood CAPILLARY BLOOD / Unknown 06/07/2024 11:03 AM EST 06/07/2024 11:04 AM EST Melida Valdes MD POINT OF CARE TEST O RDERABLES [facility] [place] [address] * Potassium (06/07/2024 9:44 AM EST) Potassium 4.7 3.5 - 5.0 mMol/L 06/07/2024 10:23 AM EST [facility] Blood VENOUS BLOOD SPECIMEN / Unknown Venipuncture / Unknown 06/07/2024 9:44 AM EST 06/07/2024 9:57 AM EST Shahnaz Scanlon MD CHEMISTRY ORDERABLES [facility] [place] [address] * POC, GLUCOSE (06/07/2024 7:45 AM EST) Glucometer, POC 175 65 - 199 mg/dL 06/07/2024 7:45 AM EST [facility] Comment:Supplemental ranges: <140 mg/dL before meals <180 mg/dL all other times of the day. Blood CAPILLARY BLOOD / Unknown 06/07/2024 7:45 AM EST 06/07/2024 7:46 AM EST Melida Valdes MD POINT OF CARE TEST O RDERABLES [facility] [place] [address] * XR Chest PA & Lateral (Generic) (06/07/2024 7:03 AM EST) WORKSTATION ID [id number] RAD Anatomical Region Laterality Modality Chest N/A [...] have questions please contact the health child adolescent care that requested your imaging first. ? Narrative [...] who have questions please contactthe health child adolescent care that requested your imaging first. Shahnaz Scanlon MD IMG DX ORDERABLES * POC, GLUCOSE (06/07/2024 4:25 AM EST) [facility] Signature Glucometer, POC 127 65 - 199 mg/dL 06/07/2024 4:26 AM EST [facility] Comment:Supplemental ranges: <140 mg/dL before meals <180 mg/dL all other times of the day. Blood CAPILLARY BLOOD / Unknown 06/07/2024 4:25 AM EST 06/07/2024 4:26 AM EST Melida Valdes MD POINT OF CARE TEST O RDERABLES Performing Organization Address [facility]/ZIP Co de Phone Number [facility] [place] [address] * Heparin (unfractionated) Level (06/07/2024 2:41 AM EST) UF Heparin 0.45 IU/mL 06/07/2024 3:03 AM EST [facility] Comment: [...] EST Shahnaz Scanlon MD HEMATOLOGY ORDERABLE S [facility] [place] [address] * (ABNORMAL) CBC (with Diff) (06/07/2024 2:41 AM EST) White Blood Cell 10.06(H) 4.00 - 9.50 x10(3)/mc L 06/07/2024 2:58 AM EST [facility] Red Blood Cell 5.02 4.58 - 5.54 x10(6)/mc L 06/07/2024 2:58 AM EST [facility] Hemoglobin 14.8 13.7 - [...] EST Shahnaz Scanlon MD HEMATOLOGY ORDERABLE S [facility] [place] [address] * Magnesium (06/07/2024 2:41 AM EST) Magnesium 0.92 0.69 - 1.07 mMol/L 06/07/2024 3:25 AM [facility] Blood VENOUS BLOOD SPECIMEN / Unknown Venipuncture / Unknown 06/07/2024 2:41 AM EST 06/07/2024 2:51 AM EST Shahnaz Scanlon MD CHEMISTRY ORDERABLES [facility] [place] [address] * (ABNORMAL) Basic Metabolic Panel (06/07/2024 2:41 [...] Scanlon MD CHEMISTRY ORDERABLES Performing Organization Address City/[facility]/ZIP Co de Phone Number [facility] [place] [address] * POC, GLUCOSE (06/07/2024 12:08 AM EST) Glucometer, POC 182 65 - 199 mg/dL 06/07/2024 12:09 AM EST [facility] Comment:Supplemental ranges: <140 mg/dL before meals <180 mg/dL all other times of the day. Blood CAPILLARY BLOOD / Unknown 06/07/2024 12:08 AM EST 06/07/2024 12:09 AM EST Melida Valdes MD POINT OF CARE TEST O NIKA Performing Organization Address [facility] Co de Phone Number [facility] [place] [address] * POC, GLUCOSE (06/06/2024 8:18 PM EST) Glucometer, POC 143 65 - 199 mg/dL 06/06/2024 8:19 PM EST [facility] Comment:Supplemental ranges: <140 mg/dL before meals <180 mg/dL all other times of the day. Blood CAPILLARY BLOOD / Unknown 06/06/2024 8:18 PM EST 06/06/2024 8:19 PM EST Melida Valdes MD POINT OF CARE TEST O NIKA Performing Organization Address City/[facility]/ZIP Co de Phone Number [facility] [place] [address] * POC, GLUCOSE (06/06/2024 3:39 PM EST) Glucometer, POC 147 65 - 199 mg/dL 06/06/2024 3:40 PM EST [facility] Comment:Supplemental ranges: <140 mg/dL before meals <180 mg/dL all other times of the day. Blood CAPILLARY BLOOD / Unknown 06/06/2024 3:39 PM EST 06/06/2024 3:40 PM EST Melida Valdes MD POINT OF CARE TEST O NIKA Performing Organization Address City/[facility]/ZIP Co de Phone Number [facility] [place] [address] * Potassium (06/06/2024 2:37 PM EST) Potassium 4.3 3.5 - 5.0 mMol/L 06/06/2024 3:01 PM EST [facility] Blood VENOUS BLOOD SPECIMEN / Unknown Venipuncture / Unknown 06/06/2024 2:37 PM EST 06/06/2024 2:42 PM EST Shahnaz Scanlon MD CHEMISTRY ORDERABLES Performing Organization Address [facility] Co de Phone Number [facility] [place] [address] * (ABNORMAL) POC, GLUCOSE (06/06/2024 1:39 PM EST) Glucometer, POC 317(H) 65 - 199 mg/dL 06/06/2024 1:40 PM EST [facility] Comment:Supplemental ranges: <140 mg/dL before meals <180 mg/dL all other times of the day. Blood CAPILLARY BLOOD / Unknown 06/06/2024 1:39 PM EST 06/06/2024 1:41 PM EST Melida Valdes MD POINT OF CARE TEST O NIKA Performing Organization Address City/[facility]/ZIP Co de Phone Number [facility] [place] [address] * (ABNORMAL) POC, GLUCOSE (06/06/2024 11:34 AM EST) Glucometer, POC 264(H) 65 - 199 mg/dL 06/06/2024 11:35 AM EST [facility] Comment:Supplemental ranges: <140 mg/dL before meals <180 mg/dL all other times of the day. Blood CAPILLARY BLOOD / Unknown 06/06/2024 11:34 AM EST 06/06/2024 11:35 AM EST Melida Valdes MD POINT OF CARE TEST O RDBECKIE Performing Organization Address City/[facility] Co de Phone Number [facility] [place] [address] * Potassium (06/06/2024 10:17 AM EST) Potassium 4.3 3.5 - 5.0 mMol/L 06/06/2024 10:46 AM EST [facility] Blood VENOUS BLOOD SPECIMEN / Unknown Venipuncture / Unknown 06/06/2024 10:17 AM EST 06/06/2024 10:22 AM EST Shahnaz Scanlon MD CHEMISTRY ORDERABLES Performing Organization Address [facility] Co de Phone Number [facility] [place] [address] * POC, GLUCOSE (06/06/2024 7:57 AM EST) Glucometer, POC 195 65 - 199 mg/dL 06/06/2024 8:03 AM EST [facility] Comment:Supplemental ranges: <140 mg/dL before meals <180 mg/dL all other times of the day. Blood CAPILLARY BLOOD / Unknown 06/06/2024 7:57 AM EST 06/06/2024 8:03 AM EST Melida Valdes MD POINT OF CARE TEST O RDERAPIETER Performing Organization Address City/[facility] Co de Phone Number [facility] [place] [address] * POC, GLUCOSE (06/06/2024 6:53 AM EST) Glucometer, POC 187 65 - 199 mg/dL 06/06/2024 6:53 AM EST [facility] Comment:Supplemental ranges: <140 mg/dL before meals <180 mg/dL all other times of the day. Blood CAPILLARY BLOOD / Unknown 06/06/2024 6:53 AM EST 06/06/2024 6:54 AM EST Melida Valdes MD POINT OF CARE TEST O RDERABLES Performing Organization Address City/[facility]/ZIP Co de Phone Number [facility] [place] [address] * (ABNORMAL) Hemoglobin A1c (06/06/2024 3:33 AM EST) [facility] Hemoglobin A1c 7.1(H) 4.3 - 5.6 % 06/06/2024 1:01 PM EST [facility] Comment: [...] red blood cell turnover may not be lead customer service representative of glycemic control. Reference Interval: 4.3 - 5.6% 5.7 - 6.4%: Consistent with prediabetes >=6.5%: Consistent with diagnosis of diabetes mellitus Estimated Average Glucose 157 mg/dL 06/06/2024 1:01 PM EST [facility] Blood VENOUS BLOOD SPECIMEN / Unknown Venipuncture / Unknown 06/06/2024 3:33 AM EST 06/06/2024 3:48 AM EST Alejandra Baumann APRN CHEMISTRY ORDERAB LES Performing Organization Address City/[facility]/ZIP Co de Phone Number [facility] [place] [address] * Heparin (unfractionated) Level (06/06/2024 3:33 AM EST) Pathologist [facility] UF Heparin 0.36 IU/mL 06/06/2024 3:59 AM EST [facility] Comment: [...] [facility] Co de Phone Number [facility] [place] [place] [address] * (ABNORMAL) CBC (with Diff) (06/06/2024 3:33 AM EST) Pathologist [facility] White Blood Cell 9.81(H) 4.00 - 9.50 x10(3)/mc L 06/06/2024 3:54 AM EST [facility] Red Blood Cell 4.91 4.58 - 5.54 x10(6)/mc L 06/06/2024 3:54 AM EST [facility] Hemoglobin 14.6 13.7 - 16.5 g/dL 06/06/2024 3:54 AM EST [facility] Hematocrit 45.4 40.5 - [...] 0.90 x10(3)/mc L 06/06/2024 3:54 AM EST [facility] Eos % 3.0 % 06/06/2024 3:54 AM EST [facility] Eos Absolute 0.29 0.00 - 0.40 x10(3)/mc L 06/06/2024 3:54 AM EST [facility] Basophil % 0.9 % [...] EST Shahnaz Scanlon MD HEMATOLOGY ORDERABLE S [facility] [place] [address] * Magnesium (06/06/2024 3:33 AM EST) Magnesium 0.92 0.69 - 1.07 mMol/L 06/06/2024 4:17 AM EST [facility] Blood VENOUS BLOOD SPECIMEN / Unknown Venipuncture / Unknown 06/06/2024 3:33 AM EST 06/06/2024 3:47 AM EST Shahnaz Scanlon MD CHEMISTRY ORDERABLES [facility] [place] [address] * (ABNORMAL) Basic Metabolic Panel (06/06/2024 3:33 [...] AM EST 06/06/2024 3:47 AM EST Shahnaz Scanoln MD CHEMISTRY ORDERABLES [facility] [place] [address] * (ABNORMAL) POC, GLUCOSE (06/05/2024 10:31 PM EDT) Glucometer, POC 238(H) 65 - 199 mg/dL 06/05/2024 10:31 PM EDT [facility] Comment:Supplemental ranges: <140 mg/dL before meals <180 mg/dL all other times of the day. Blood CAPILLARY BLOOD / Unknown 06/05/2024 10:31 PM EDT 06/05/2024 10:31 PM EDT Melida Valdes MD POINT OF CARE TEST O RDERABLES [facility] [place] [address] * (ABNORMAL) POC, GLUCOSE (06/05/2024 4:22 PM EDT) Glucometer, POC 205(H) 65 - 199 mg/dL 06/05/2024 4:22 PM EDT [facility] Comment:Supplemental ranges: <140 mg/dL before meals <180 mg/dL all other times of the day. Blood CAPILLARY BLOOD / Unknown 06/05/2024 4:22 PM EDT 06/05/2024 4:23 PM EDT Melida Valdes MD POINT OF CARE TEST O RDERAPIETER [facility] [place] [address] * (ABNORMAL) POC, GLUCOSE (06/05/2024 11:34 AM EDT) Glucometer, POC 211(H) 65 - 199 mg/dL 06/05/2024 11:34 AM EDT [facility] Comment:Supplemental ranges: <140 mg/dL before meals <180 mg/dL all other times of the day. Blood CAPILLARY BLOOD / Unknown 06/05/2024 11:34 AM EDT 06/05/2024 11:34 AM EDT Melida Valdes MD POINT OF CARE TEST O NIKA Performing Organization Address City/[facility] Co de Phone Number [facility] [place] [address] * Potassium (06/05/2024 9:04 AM EDT) Potassium 4.3 3.5 - 5.0 mMol/L 06/05/2024 9:50 AM EDT [facility] Blood VENOUS BLOOD SPECIMEN / Unknown Venipuncture / Unknown 06/05/2024 9:04 AM EDT 06/05/2024 9:21 AM EDT Shahnaz Scanlon MD CHEMISTRY ORDERABLES Performing Organization Address [facility] Co de Phone Number [facility] [place] [address] * POC, GLUCOSE (06/05/2024 7:27 AM EDT) Glucometer, POC 166 65 - 199 mg/dL 06/05/2024 7:27 AM EDT [facility] Comment:Supplemental ranges: <140 mg/dL before meals <180 mg/dL all other times of the day. Blood CAPILLARY BLOOD / Unknown 06/05/2024 7:27 AM EDT 06/05/2024 7:27 AM EDT Melida Valdes MD POINT OF CARE TEST O NIKA Performing Organization Address [facility] Co de Phone Number [facility] [place] [address] * Heparin (unfractionated) Level (06/05/2024 3:44 AM EDT) UF Heparin 0.44 IU/mL 06/05/2024 4:07 AM EDT [facility] Comment: Heparin (anti-Xa) [...] EDT Shahnaz Scanlon MD HEMATOLOGY ORDERABLE S [facility] [place] [address] * (ABNORMAL) CBC (with Diff) (06/05/2024 3:44 AM EDT) White Blood Cell 10.83(H) 4.00 - 9.50 x10(3)/mc L 06/05/2024 3:56 AM EDT [facility] Red Blood Cell 5.07 4.58 - 5.54 x10(6)/mc L 06/05/2024 3:56 AM EDT [facility] Hemoglobin 15.3 13.7 - 16.5 g/dL 06/05/2024 3:56 AM EDT [facility] Hematocrit 46.8 40.5 - 48.5 % 06/05/2024 3:56 AM EDT [facility] Mean Cell Volume 92.3 [...] % 2.2 % 06/05/2024 3:56 AM EDT [facility] Eos Absolute 0.24 0.00 - 0.40 x10(3)/mc L 06/05/2024 3:56 AM EDT [facility] Basophil % 0.8 % 06/05/2024 3:56 AM EDT [facility] Baso Absolute 0.09 0.00 - 0.10 x10(3)/mc L 06/05/2024 3:56 AM EDT [facility] Immature Gran % 0.6 % 3:56 AM EDT [facility] Immature Gran Absolute 0.07(H) 0.00 - 0.04 x10(3)/mc L 06/05/2024 3:56 AM EDT [facility] Blood VENOUS BLOOD SPECIMEN / Unknown Venipuncture / Unknown 06/05/2024 3:44 AM EDT 06/05/2024 3:50 AM EDT Shahnaz Scanlon MD HEMATOLOGY ORDERABLE S [facility] [place] [address] * Magnesium (06/05/2024 3:44 AM EDT) Magnesium 0.92 0.69 - 1.07 mMol/L 06/05/2024 4:20 AM EDT [facility] Blood VENOUS BLOOD SPECIMEN / Unknown Venipuncture / Unknown 06/05/2024 3:44 AM EDT 06/05/2024 3:50 AM EDT Shahnaz Scanlon MD CHEMISTRY ORDERABLES [facility] [place] [address] * (ABNORMAL) Basic Metabolic Panel (06/05/2024 3:44 [...] Scanlon MD CHEMISTRY ORDERABLES Performing Organization Address City/[facility]/ZIP Co de Phone Number [facility] [place] [address] * Potassium (06/04/2024 10:34 PM EDT) Potassium 3.7 3.5 - 5.0 mMol/L 06/04/2024 11:03 PM EDT [facility] Blood VENOUS BLOOD SPECIMEN / Unknown Venipuncture / Unknown 06/04/2024 10:34 PM EDT 06/04/2024 10:39 PM EDT Shahnaz Scanlon MD CHEMISTRY ORDERABLES Performing Organization Address [facility] Co de Phone Number [facility] [place] [address] * POC, GLUCOSE (06/04/2024 7:43 PM EDT) Glucometer, POC 175 65 - 199 mg/dL 06/04/2024 7:43 PM EDT [facility] Comment:Supplemental ranges: <140 mg/dL before meals <180 mg/dL all other times of the day. Blood CAPILLARY BLOOD / Unknown 06/04/2024 7:43 PM EDT 06/04/2024 7:43 PM EDT Melida Valdes MD POINT OF CARE TEST O RDERABLES [facility] [place] [place] [address] * Potassium (06/04/2024 4:35 PM EDT) Potassium 4.0 3.5 - 5.0 mMol/L 06/04/2024 5:32 PM EDT [facility] Blood VENOUS BLOOD SPECIMEN / Unknown Venipuncture / Unknown 06/04/2024 4:35 PM EDT 06/04/2024 4:40 PM EDT Shahnaz Scanlon MD CHEMISTRY ORDERABLES Performing Organization Address [facility] Co de Phone Number [facility] [place] [address] * POC, GLUCOSE (06/04/2024 3:26 PM EDT) Glucometer, POC 154 65 - 199 mg/dL 06/04/2024 3:26 PM EDT [facility] Comment:Supplemental ranges: <140 mg/dL before meals <180 mg/dL all other times of the day. Blood CAPILLARY BLOOD / Unknown 06/04/2024 3:26 PM EDT 06/04/2024 3:27 PM EDT Melida Valdes MD POINT OF CARE TEST O RDERABLES Performing Organization Address [facility] Co de Phone Number [facility] [place] [address] * POC, GLUCOSE (06/04/2024 11:09 AM EDT) Glucometer, POC 188 65 - 199 mg/dL 06/04/2024 11:09 AM EDT [facility] Comment:Supplemental ranges: <140 mg/dL before meals <180 mg/dL all other times of the day. Blood CAPILLARY BLOOD / Unknown 06/04/2024 11:09 AM EDT 06/04/2024 11:09 AM EDT Delroy Fofana MD POINT OF CARE TEST ORDERABLES Performing Organization Address [facility] Co de Phone Number [facility] [place] [address] * Heparin (unfractionated) Level (06/04/2024 10:41 AM EDT) UF Heparin 0.43 IU/mL 06/04/2024 11:06 AM EDT [facility] Comment: Heparin (anti-Xa) [...] EDT Shahnaz Scanlon MD HEMATOLOGY ORDERABLE S [facility] [place] [address] * Potassium (06/04/2024 10:41 AM EDT) Pathologist [facility] Potassium 4.0 3.5 - 5.0 mMol/L 06/04/2024 11:11 AM EDT [facility] Blood VENOUS BLOOD SPECIMEN / Unknown Venipuncture / Unknown 06/04/2024 10:41 AM EDT 06/04/2024 10:46 AM EDT Shahnaz Scanlon MD CHEMISTRY ORDERABLES Performing Organization Address City/[facility]/ZIP Co de Phone Number [facility] [place] [address] * POC, GLUCOSE (06/04/2024 7:11 AM EDT) Glucometer, POC 182 65 - 199 mg/dL 06/04/2024 7:12 AM EDT [facility] Comment:Supplemental ranges: <140 mg/dL before meals <180 mg/dL all other times of the day. Blood CAPILLARY BLOOD / Unknown 06/04/2024 7:11 AM EDT 06/04/2024 7:12 AM EDT Delroy Fofana MD POINT OF CARE TEST ORDERABLES Performing Organization Address [facility] Co de Phone Number [facility] [place] [address] * Heparin (unfractionated) Level (06/04/2024 4:38 AM EDT) UF Heparin 0.41 IU/mL 06/04/2024 5:19 AM EDT [facility] Comment: Heparin (anti-Xa) [...] HEMATOLOGY ORDERABLE S Performing Organization Address [facility]/ZIP Co de Phone Number [facility] [place] [address] * (ABNORMAL) CBC (with Diff) (06/04/2024 4:38 [...] 6.10 x10(3)/mc L 06/04/2024 5:12 AM EDT [facility] Lymph % 25.1 % 06/04/2024 5:12 AM EDT [facility] Lymph Absolute 2.87 0.90 - 3.20 x10(3)/mc L 06/04/2024 5:12 AM EDT [facility] Monocyte % 10.6 % 06/04/2024 5:12 AM EDT [facility] Monocyte Absolute 1.21(H) 0.30 - 0.90 x10(3)/mc L 06/04/2024 5:12 AM EDT [facility] Eos % 2.8 % 06/04/2024 5:12 AM EDT [facility] Eos Absolute 0.32 0.00 - 0.40 x10(3)/mc L 06/04/2024 5:12 AM EDT [facility] Basophil % 0.7 % 06/04/2024 5:12 AM EDT [facility] Baso Absolute 0.08 0.00 - 0.10 x10(3)/mc L 06/04/2024 5:12 AM EDT [facility] Immature Gran % 0.5 % 5:12 AM EDT [facility] Immature Gran Absolute 0.06(H) 0.00 - 0.04 x10(3)/mc L 06/04/2024 5:12 AM EDT [facility] Blood VENOUS BLOOD SPECIMEN / Unknown Venipuncture / Unknown 06/04/2024 4:38 AM EDT 06/04/2024 5:07 AM EDT Shahnaz Scanlon MD HEMATOLOGY ORDERABLE S [facility] [place] [address] * Magnesium (06/04/2024 4:38 AM EDT) Magnesium 0.84 0.69 - 1.07 mMol/L 06/04/2024 5:35 AM EDT [facility] Blood VENOUS BLOOD SPECIMEN / Unknown Venipuncture / Unknown 06/04/2024 4:38 AM EDT 06/04/2024 5:07 AM EDT Shahnaz Scanlon MD CHEMISTRY ORDERABLES [facility] [place] [address] * (ABNORMAL) Basic Metabolic Panel (06/04/2024 4:38 AM EDT) Glucose 118 65 - 199 mg/dL 06/04/2024 5:35 AM EDT [facility] Comment:Glucose Concentratio n >=200 mg/dL plus symptoms is consistent with Diabetes Mellitus. Blood Urea Nitrogen 22(H) 10 - 20 mg/dL 06/04/2024 5:35 AM EDT [facility] Creatinine 1.22 0.80 - 1.50 mg/dL 06/04/2024 5:35 AM [facility] Sodium 137 135 - 145 mMol/L 06/04/2024 5:35 AM [facility] Potassium 3.6 3.5 - 5.0 mMol/L 06/04/2024 5:35 AM [facility] Chloride 97(L) 98 - 107 mMol/L 06/04/2024 5:35 AM EDT [facility] Carbon Dioxide 29 22 - 31 mMol/L 06/04/2024 5:35 AM EDT [facility] Anion Gap 11 5 - 15 mMol/L 06/04/2024 5:35 AM [facility] Calcium 9.0 8.5 - 10.5 mg/dL 06/04/2024 5:[facility] Est Glomerular Filtration Rate - Male 65 mL/min/1. 73 m?? 06/04/2024 5:35 AM [facility] Comment: This patient's estimated [...] AM EDT Shahnaz Scanlon MD CHEMISTRY ORDERABLES [facility] [place] [address] * Heparin (unfractionated) Level (06/03/2024 8:58 PM EDT) UF Heparin 0.27 IU/mL 06/03/2024 9:33 PM EDT [facility] Comment: Heparin (anti-Xa) [...] EDT Shahnaz Scanlon MD HEMATOLOGY ORDERABLE S [facility] [place] [address] * POC, GLUCOSE (06/03/2024 8:05 PM EDT) Glucometer, POC 136 65 - 199 mg/dL 06/03/2024 8:05 PM EDT [facility] Comment:Supplemental ranges: <140 mg/dL before meals <180 mg/dL all other times of the day. Blood CAPILLARY BLOOD / Unknown 06/03/2024 8:05 PM EDT 06/03/2024 8:05 PM EDT Delroy Fofana MD POINT OF CARE TEST ORDERABLES Performing Organization Address [facility] Co de Phone Number [facility] [place] [address] * POC, GLUCOSE (06/03/2024 5:48 PM EDT) Glucometer, POC 191 65 - 199 mg/dL 06/03/2024 5:48 PM EDT [facility] Comment:Supplemental ranges: <140 mg/dL before meals <180 mg/dL all other times of the day. Blood CAPILLARY BLOOD / Unknown 06/03/2024 5:48 PM EDT 06/03/2024 5:49 PM EDT Delroy Fofana MD POINT OF CARE TEST ORDERABLES Performing Organization Address City/[facility]/ZIP Co de Phone Number [facility] [place] [address] * CT Chest wo Contrast (Generic) (06/03/2024 4:33 PM EDT) WORKSTATION ID [id number] DH RAD Anatomical Region Laterality Modality Chest Computed Tomogra phy Impressions 06/03/2024 4:47 PM EDT Cardiomegaly. Biventricular ICD leads in place. Thank you for letting us participate in the care of this patient. ??If you are a health care provider and have any questions regarding this report, please contact the number below. ??For patients who have questions please contact the health child adolescent care that requested your imaging first. ? Narrative [...] who have questions please contactthe health child adolescent care that requested your imaging first. Bobby Loja MD IMG CT ORDERABLES * Carotid Duplex, Bilateral (06/03/2024 2:19 PM EDT) VB Text Report Department: Vascular Surgery Lab Patient: [id number] (GEORGE MEHTA) CPT: 58777 Referring Physician: BOBBY LOJA ?? Phone: Indications: [...] Loja MD VASCULAR ORDERABLES Performing Organization Address [facility] de Phone Number [id number] * Heparin (unfractionated) Level (06/03/2024 12:48 PM EDT) UF Heparin 0.15 IU/mL 06/03/2024 1:13 PM EDT [facility] Comment: Heparin (anti-Xa) [...] MD HEMATOLOGY ORDERABLE S Performing Organization Address City/[facility] Co de Phone Number [facility] [place] [address] * POC, GLUCOSE (06/03/2024 11:14 AM EDT) Glucometer, POC 166 65 - 199 mg/dL 06/03/2024 11:14 AM EDT [facility] Comment:Supplemental ranges: <140 mg/dL before meals <180 mg/dL all other times of the day. Blood CAPILLARY BLOOD / Unknown 06/03/2024 11:14 AM EDT 06/03/2024 11:14 AM EDT Delroy Fofana MD POINT OF CARE TEST ORDERABLES [facility] [place] [address] * (ABNORMAL) Troponin-T, High Sensitivity 3 Hour (06/03/2024 10:06 AM EDT) Troponin-T, High Sensitivity 266(H) <=22 ng/L 06/03/2024 10:50 AM EDT [facility] Comment: This patient's [...] value can be found in the [facility] Laboratory Test Catalog Troponin - https://one-.testcatalog.org/catalogs/565/files/37400 Reference: Fourth [place] Definition of Myocardial Infarction. Journal of the [employer] 2018;72:4736-2391 Troponin-T, HS 3 hr delta 06/03/2024 10:50 AM EDT [facility] Comment:Delta troponin value not calculated, sample collected outside of delta calculation time limit. Blood VENOUS BLOOD SPECIMEN / Unknown IP Care Team Draw / Unknown 06/03/2024 10:06 AM EDT 06/03/2024 10:15 AM EDT Delroy Fofana MD CHEMISTRY SANDY S [facility] [place] [address] * ECHO COMPLETE W CONTRAST (06/03/2024 8:46 AM EDT) Anatomical Region Laterality Modality Cardiac Other 06/03/2024 6:52 AM EDT Narrative 06/03/2024 10:32 AM EDT [address] [place] [id number] ? Echocardiogram Report Name: GEORGE MEHTA Raad ?Study Date: 06/03/2024 06:52 AM : 1955 ? Height: 168 cm ? Account: [id number] Age: 69 yrs ? Weight: 102 kg Gender: Male ?BSA: 2.1 m2 Ordering Physician: SHAHNAZ SCANLON Referring Physician: NEHAL QUINTERO Performed By: Sara Kebede RDCS Reason For Study: STEMI Exam Location: [facility]. Interpretation Summary -Left ventricular systolic function is [...] fellow performed study of today's date). Procedure Complete-60861. Image enhancement Optison was used for left [...] Note Jonnie Jordan MD - 06/03/2024 [address] [place] [address] Echocardiogram Report Name: GEORGE MEHTA Study Date: 406:52 AM : 1955 Height: 168 cm Account: [id number] Age: 69 yrs Weight: 102 kg Gender: Male BSA: 2.1 m2 Ordering Physician: SHAHNAZ SCANLON Referring Physician: NEHAL QUINTERO Performed By: Sara Kebede RDCS Reason For Study: STEMI Exam Location: [facility]. Interpretation Summary -Left ventricular systolic function is [...] a fellow performed study of's date). Procedure Complete-[id number]. Image enhancement Optison was used for left [...] 289(H) <=22 ng/L 06/03/2024 9:26 AM EDT [facility] Comment: This patient's [...] value can be found in the [facility] Test Catalog Troponin - https://[email or web address].testcatalog.org/catalogs/565/files/33241 Reference: Fourth [place] Definition of Myocardial Infarction. Journal of the [employer] 2018;72:8207-4990 Troponin-T, HS 1 hr delta 5 ng/L 06/03/2024 9:26 AM EDT [facility] Comment:The 1 hour Troponin T delta value is the absolute difference between the Troponin T concentrations of the initial and subsequent sample collected between 45 - 120 minutes following the initial collection. Blood VENOUS BLOOD SPECIMEN / Unknown IP Care Team Draw / Unknown 06/03/2024 8:27 AM EDT 06/03/2024 8:37 AM EDT Delroy Fofana MD CHEMISTRY ORDERABLE S [facility] [place] [address] * POC, GLUCOSE (06/03/2024 7:54 AM EDT) [facility] Signature Glucometer, POC 195 65 - 199 mg/dL 06/03/2024 7:55 AM EDT [facility] Comment:Supplemental ranges: <140 mg/dL before meals <180 mg/dL all other times of the day. Blood CAPILLARY BLOOD / Unknown 06/03/2024 7:54 AM EDT 06/03/2024 7:55 AM EDT Nuha Rojo MD POINT OF CARE TEST ORDERABLES [facility] [place] [address] * (ABNORMAL) Troponin-T, High Sensitivity (06/03/2024 7:39 AM EDT) Pathologist [facility] Troponin-T, High Sensitivity Initial 284(H) <=22 ng/L 06/03/2024 8:29 AM EDT [facility] Comment: This patient's [...] value can be found in the [facility] Test Catalog Troponin - https://[email or web address]-.testcatalog.org/catalogs/565/files/27365 Reference: Fourth [place] Definition of Myocardial Infarction. Journal of the [employer] 2018;72:0522-9596 Blood VENOUS BLOOD SPECIMEN / Unknown IP Care Team Draw / Unknown 06/03/2024 7:39 AM EDT 06/03/2024 7:48 AM EDT Delroy Fofana MD CHEMISTRY ORDERABLE S [facility] [place] [address] * (ABNORMAL) Troponin-T, High Sensitivity 3 Hour (06/03/2024 5:11 AM EDT) Troponin-T, High Sensitivity 254(H) <=22 ng/L 06/03/2024 5:49 AM EDT [facility] Comment: This patient's [...] value can be found in the [facility] Test Catalog Troponin - https://[email or web address]testcatalog.org/catalogs/565/files/85514 Reference: Fourth [place] Definition of Myocardial Infarction. Journal of the [employer] 2018;72:1144-9385 Troponin-T, HS 3 hr delta 46 ng/L 06/03/2024 5:49 AM EDT [facility] Comment:The 3 hour Troponin T delta value is the absolute difference between the Troponin T concentrations of the initial and subsequent sample collected between 2 h: 45 min and 6 h following the initial collection Blood VENOUS BLOOD SPECIMEN / Unknown IP Care Team Draw / Unknown 06/03/2024 5:11 AM EDT 06/03/2024 5:20 AM EDT Shahnaz Scanlon MD CHEMISTRY ORDERABLES [facility] [place] [address] * (ABNORMAL) Troponin-T, High Sensitivity 1 Hour (06/03/2024 3:07 AM EDT) Troponin-T, High Sensitivity 218(H) <=22 ng/L 06/03/2024 3:39 AM EDT [facility] Comment: This patient's [...] value can be found in the [facility] Test Catalog Troponin - https://[email or web address]testcatalog.org/catalogs/565/files/93987 Reference: Fourth [place] Definition of Myocardial Infarction. Journal of the [place] [employer] 2018;72:0267-9491 Troponin-T, HS 1 hr delta 10 ng/L 06/03/2024 3:39 AM EDT [facility] Comment:The 1 hour Troponin T delta value is the absolute difference between the Troponin T concentrations of the initial and subsequent sample collected between 45 - 120 minutes following the initial collection. Blood VENOUS BLOOD SPECIMEN / Unknown IP Care Team Draw / Unknown 06/03/2024 3:07 AM EDT 06/03/2024 3:12 AM EDT Shahnaz Scanlon MD CHEMISTRY ORDERABLES [facility] [place] [address] * XR Chest One View (06/03/2024 2:41 AM EDT) WORKSTATION ID [id number] RAD Anatomical Region Laterality Modality Chest N/A Digital Radiogra phy Impressions 06/03/2024 3:06 AM EDT No radiographically evident acute cardiopulmonary process. Thank you for letting us participate in the care of this patient. ??If you are a health care provider and have any questions regarding this report, please contact the number below. ??For patients who have questions please contact the health child adolescent care that requested your imaging first. ? Narrative [...] who have questions please contactthe health child adolescent care that requested your imaging first. Shahnaz Scanlon MD IMG DX ORDERABLES * Heparin (unfractionated) Level (06/03/2024 2:13 AM EDT) UF Heparin 0.56 IU/mL 06/03/2024 4:13 AM EDT [facility] Comment: Heparin (anti-Xa) [...] EDT Shahnaz Scanlon MD HEMATOLOGY ORDERABLE S [facility] [place] [address] * (ABNORMAL) Troponin-T, High Sensitivity (06/03/2024 2:13 AM EDT) Troponin-T, High Sensitivity Initial 208(H) <=22 ng/L 06/03/2024 3:02 AM EDT [facility] Comment: This patient's [...] value can be found in the [facility] Laboratory Test Catalog Troponin - [email or web address]-.testcatalog.org/catalogs/565/files/71604 Reference: Fourth [place] Definition of Myocardial Infarction. Journal of the [place] College [employer] 2018;72:3936-3606 Blood VENOUS BLOOD SPECIMEN / Unknown IP Care Team Draw / Unknown 06/03/2024 2:13 AM EDT 06/03/2024 2:32 AM EDT Shahnaz Scanlon MD CHEMISTRY ORDERABLES Performing Organization Address City/[facility]/ZIP Co de Phone Number [facility] [place] [address] * Magnesium (06/03/2024 2:13 AM EDT) Magnesium 0.86 0.69 - 1.07 mMol/L 06/03/2024 3:02 AM EDT [facility] Blood VENOUS BLOOD SPECIMEN / Unknown IP Care Team Draw / Unknown 06/03/2024 2:13 AM EDT 06/03/2024 2:32 AM EDT Shahnaz Scanlon MD CHEMISTRY ORDERABLES [facility] [place] [address] * Basic Metabolic Panel (06/03/2024 2:13 AM EDT) Glucose 126 65 - 199 mg/dL 06/03/2024 3:02 AM EDT [facility] Comment:Glucose Concentratio n >=200 mg/dL plus symptoms is consistent with Diabetes Mellitus. Blood Urea Nitrogen 20 10 - 20 mg/dL 06/03/2024 3:02 AM EDT [facility] Creatinine 1.13 0.80 - [...] 22 - 31 mMol/L 06/03/2024 [facility] Anion Gap 12 5 - 15 mMol/L 06/03/2024 3:02 AM [facility] Calcium 9.8 8.5 - 10.5 mg/dL 06/03/2024 3:02 AM [facility] Est Glomerular Filtration Rate - Male 71 mL/min/1. 73 m?? 06/03/2024 3:02 [facility] Comment: This patient's estimated [...] AM EDT Shahnaz Scanlon MD CHEMISTRY ORDERABLES [facility] [place] [address] * (ABNORMAL) CBC (with Diff) (06/03/2024 2:13 AM EDT) White Blood Cell 11.16(H) 4.00 - 9.50 x10(3)/mc L 06/03/2024 2:37 AM [facility] Red Blood Cell 5.09 4.58 - 5.54 x10(6)/mc L 06/03/2024 2:37 AM [facility] Hemoglobin 15.0 13.7 - 16.5 g/dL 06/03/2024 2:37 AM T [facility] Hematocrit 47.4 40.5 - [...] 0.40 x10(3)/mc L 06/03/2024 2:37 AM EDT [facility] Basophil % 0.8 % 06/03/2024 2:37 AM EDT [facility] Baso Absolute 0.09 0.00 - 0.10 x10(3)/mc L 06/03/2024 2:37 AM EDT [facility] Immature Gran % 0.4 % 2:37 AM EDT [facility] Immature Gran Absolute 0.05(H) 0.00 - 0.04 x10(3)/mc L 06/03/2024 2:37 AM EDT [facility] Blood VENOUS BLOOD SPECIMEN / Unknown IP Care Team Draw / Unknown 06/03/2024 2:13 AM EDT 06/03/2024 2:31 AM EDT Shahnaz Scanlon MD HEMATOLOGY ORDERABLE S Performing Organization Address City/State/[facility] Co de Phone Number [facility] [place] [address] * Lipid Panel (Reflex Direct LDL) (06/03/2024 2:13 AM EDT) Cholesterol, Total 76 mg/dL 06/03/2024 3:02 AM [facility] Comment: Desirable: < 200 mg/dL Borderline High: 200 - 239 mg/dL High: > or = 240 mg/dL Triglyceride 75 mg/dL 06/03/2024 3:02 AM EDT [facility] Comment: Normal: <150 mg/dL Borderline High: 150-199 mg/dL High: 200-499 mg/dL Very High: > or =500 mg/dL HDL Cholesterol 39 mg/dL 3:02 AM EDT [facility] Comment:Males: High Risk: <4 0 mg/dL LDL Cholesterol 21 mg/dL 3:02 AM [facility] Comment: Desirable: <100 mg/dL Above Desirable: 100-129 mg/dL Borderline High: 130-159 mg/dL High: 160-189 mg/dL Very High: > or =190 mg/dL Note: LDL calculation updated to the NIH LDL formula as of 03/07/2024 Non-HDL Cholesterol 37 mg/dL 06/03/2024 3:02 AM EDT [facility] Comment: Desirable: <130 mg/dL Above Desirable: 130-159 mg/dL Borderline High: 160-189 mg/dL High: 190-219 mg/dL Very High: > or = 220 mg/dL Blood VENOUS BLOOD SPECIMEN / Unknown IP Care Team Draw / Unknown 06/03/2024 2:13 AM EDT 06/03/2024 2:32 AM EDT [facility] - 06/03/2024 3:02 AM EDT It [...] MD CHEMISTRY ORDERABLES Performing Organization Address [facility] de Phone Number [facility] [place] [address] * (ABNORMAL) APTT (06/03/2024 2:13 AM EDT) Partial Thromboplastin Time 105(HHH) 25 - 37 sec 06/03/2024 4:13 AM EDT [facility] Comment: The PTT is [...] HEMATOLOGY ORDERABLE S Performing Organization Address [facility] Co de Phone Number [facility] [place] [address] * Prothrombin Time (06/03/2024 2:13 AM EDT) Prothrombin Time 11.5 9.4 - 12.5 sec 06/03/2024 4:13 AM EDT [facility] International Normalization Ratio 1.0 <=4.9 06/03/2024 4:13 AM EDT [facility] Comment: An INR < [...] EDT Shahnaz Scanlon MD HEMATOLOGY ORDERABLE S [facility] [place] [address] * Hepatic Function Panel (06/03/2024 2:13 AM EDT) Albumin 3.8 3.2 - 5.2 g/dL 06/03/2024 3:02 AM EDT [facility] Aspartate Aminotransferase 20 <=39 unit/L 06/03/2024 3:02 AM EDT [facility] Alanine Aminotransferase 12 0 - 55 unit/L 06/03/2024 3:02 AM EDT [facility] Alkaline Phosphatase 76 40 - 130 unit/L 06/03/2024 3:02 AM EDT [facility] Bilirubin, Total 0.4 <=1.3 mg/dL 06/03/2024 3:02 AM EDT [facility] Bilirubin, Direct <0.2 0.0 - 0.3 mg/dL 06/03/2024 3:02 AM EDT [facility] Protein, Total 7.0 6.1 - 8.0 g/dL 06/03/2024 3:02 AM EDT [facility] Blood VENOUS BLOOD SPECIMEN / Unknown IP Care Team Draw / Unknown 06/03/2024 2:13 AM EDT 06/03/2024 2:32 AM EDT Shahnaz Scanlon MD CHEMISTRY ORDERABLES Performing Organization Address City/[facility]/ZIP Co de Phone Number [facility] [place] [address] * (ABNORMAL) pro-Brain Natriuretic Peptide (06/03/2024 2:13 AM EDT) NT-proBNP 1,628(H) <=124 pg/mL 06/03/2024 4:15 AM EDT [facility] Blood VENOUS BLOOD SPECIMEN / Unknown IP Care Team Draw / Unknown 06/03/2024 2:13 AM EDT 06/03/2024 2:32 AM EDT Shahnaz Scanlon MD CHEMISTRY ORDERABLES Performing Organization Address [facility] Co de Phone Number [facility] [place] [address] * Phosphorus (06/03/2024 2:13 AM EDT) Phosphorus 4.4 2.5 - 4.5 mg/dL 06/03/2024 3:02 AM EDT [facility] Blood VENOUS BLOOD SPECIMEN / Unknown IP Care Team Draw / Unknown 06/03/2024 2:13 AM EDT 06/03/2024 2:32 AM EDT Shahnaz Scanlon MD CHEMISTRY ORDERABLES Performing Organization Address City/[facility]/ZIP Co de Phone Number [facility] [place] [address] * EKG 12 Lead (06/03/2024 1:45 AM EDT) Ventricular rate 63 BPM MUSE SYSTEM Atrial Rate 63 BPM MUSE SYSTEM P-R Interval 168 ms MUSE SYSTEM QRS Duration 96 ms MUSE SYSTEM Q-T Interval 400 ms MUSE SYSTEM QTC Calculated (Bezet) 409 ms MUSE SYSTEM Calculated P Cyril 65 degrees MUSE SYSTEM Calculated R Cyril 70 degrees MUSE SYSTEM Calculated T Cyril -86 degrees MUSE SYSTEM INTERPRETATION Atrial-sensed ventricular-paced rhythm Abnormal ECG No previous ECGs available I personally reviewed the tracing and edited the fellows interpretation Confirmed by fellow Sunni Agudelo ([id number]) on 06/04/2024 3:55:40 PM Confirmed by MD Tamia, Stuart Perry ([id number]) on 06/05/2024 11:46:48 AM MUSE SYSTEM 06/03/2024 1:45 AM EDT 06/05/2024 11:46 AM EDT Shahnaz Scanlon MD ECG ORDERABLES MUSE SYSTEM * CARDIAC CATHETERIZATION (06/03/2024 12:42 AM EDT) Anatomical Region Laterality Modality Other Narrative 06/04/2024 2:22 PM EDT ?[facility] ? Cardiac Catheterization/Intervention Report ? Patient Name: George Mehta L. ? Procedure Date: 06/02/2024 ? A #: [id number] ? Primary Physician: Nuha Shen I ? Case #: [id number] ? File Name: [id number] ? Catheterization Order Number: [id number] ? [facility] ? Final Report [place], [place] ? Patient Name: ? George L. Tyson ? ID#: ?[id number] ? : ?1955 ? Procedure Date: ? [...] was designated as ASA Class IV. The [facility] clinical frailty ?scale is 5: Mildly Frail. ? Diagnostic Tests: ?Electrocardiography: ? EKG was assessed by ECG. EKG was Abnormal. EKG showed ST Deviation ? >= 0.5 mm. ?Medications Prior to Procedure: ? Sacubitril and Valsartan, Aspirin, Beta Erik, Statin and ? Thrombolytic (any). ? Indications for Diagnostic Cath: ?The priority of the diagnostic procedure was Emergent. The indication for ?the cath lab technologist visit is ACS less than or equal [...] ?3.5 guiding catheter and a 3.5 Fr [place] [facility] [place] 20 Mhz using Manual ?pullback. ??Imaging was [...] 3.5 guiding catheter and a 3.5 Fr [place] [facility] [place] 20 Mhz using ?Manual pullback. ??Imaging was [...] Procedure Note Nuha Shen MD - 07/20/2024 [facility] Cardiac Catheterization/Intervention Report Patient Name: George Mehta Procedure Date: 06/02/2024 A #: [id number] Primary Physician: Nuha Shen I Case #: [id number] File Name: [id number] Catheterization Order Number: [id number] [facility] FinalReport [place], [place] Patient Name: George Mehta ID#:[id number] :1955 Procedure Date: June 02, 2024 Case [...] was designated as ASA Class IV. The [facility] clinicalfrailty scale is 5: Mildly Frail. Diagnostic Tests: Electrocardiography: EKG was assessed by ECG. EKG was Abnormal. EKG showed STDeviation >= 0.5 mm. Medications Prior to Procedure: Sacubitril and Valsartan, Aspirin, Beta Erik, Statin and Thrombolytic (any). Indications for Diagnostic Cath: The priority of the diagnostic procedure was Emergent. Theindication for the cath lab technologist visit is ACS less than or equal [...] units of heparin were administered. A total ye427mo of Omnipaque were opened, 84cc of Omnipaque were administered bwo74vy of Omnipaque were wasted. Radiation: Fluoro time [...] 3.5 guiding catheter and a 3.5 Fr [place] [facility] [place] 20 Mhz usingManual pullback. Imaging was successful. [...] 3.5 guiding catheter and a 3.5 Fr [place] [facility] [place] 20 Mhzusing Manual pullback. Imaging was successful. Indication: IVUS performed for pre intervention planning. Findings Pre-Intervention: scattered plaque, calcification and [id number] degrees calcification. Findings Post-Intervention: Stent not imaged [...] - 199 mg/dL 06/02/2024 11:31 PM EDT [facility] Comment:Supplemental ranges: <140 mg/dL before meals <180 mg/dL all other times of the day. Blood CAPILLARY BLOOD / Unknown 06/02/2024 11:31 PM EDT 06/02/2024 11:31 PM EDT Nuha Rojo MD POINT OF CARE TEST ORDERABLES Performing Organization Address City/State/[facility] Co de Phone Number [facility] [place] [phone] documented in this encounter Visit Diagnoses Not [...] Last dose on Fri06/23/24 at 0900, [employer] recommended duration is 3 days., Routine Given [...] 8:02 PM EST 2 tablets sodium chloride ([place]) 0.65 % nasal spray 1 spray 1 [...] Last dose on Fri06/23/24 at 0900, [employer] recommended duration is 3 days., Routine 2043 [...] Comment: 117/75) 812 (Given - Provider: Michelle rOozco, JAMIE)2041 (Given - Provider: Christina Myers RN [...] oral route first line., Routine sodium chloride ([place]) 0.65 % nasal spray 1 spray 1 [...] Routine documented in this encounter Care Teams [employer] Relationship Specialty Start Date End Date Mauro Berumen MD [address] [place] [address] PCP - General Family Medicine 06/02/24 documented as of this encounter
--- OUTSIDE RECORDS SUMMARY | 2024-08-20 11:05 | XMS_ITS | Encounter Summary ---
Author Organization [facility] Address [facility] [place] [address] Care Team Providers Care Yard Laborer Name Role Phone Mauro Berumen MD Primary Care Provider Encounter Details Date Type Department Care Team (Late st Contact Info) Description 06/02/2024 External Results Administration [facility] [place] [id number] Social History Tobacco Use Types Packs/Day Years Used Date Smoking Tobacco: Never Assessed [facility] Utilities Answer Date Recorded In the past 12 months has th e electric, gas, oil, or water [employer] threatened to shut off services in [...] time in the past 12 m [facility], were you homeless or living in [...] PM EST Office Visit Cardiology at [address] [phone] Moi Falcon MD [facility] [place] [address] documented as of this encounter Procedures Procedure Name Priority Date/Time Associated Diagnosis Comments MISC EXTERNAL CARDIOLOGY RESULT Routine 06/02/2024 9:54 PM EDT documented in this encounter Results * External Cardiology Result (06/02/2024 9:54 PM EDT) Anatomical Region Laterality Modality Other Historical Provider EXTERNAL CARDIOLO GY RESULT documented in this encounter Visit Diagnoses Not on filedocumented in this encounter Care Teams Yard Laborer Relationship Specialty Start Date End Date Mauro Berumen MD [address] [place] [address] PCP - General Family Medicine 06/02/24 documented as of this encounter
--- OUTSIDE RECORDS SUMMARY | 2024-08-20 11:05 | XMS_ITS | Encounter Summary ---
Author Organization [facility] [place] [address] Care Team Providers Care Mechanical Assembly Name Role Phone Mauro Berumen MD Primary Care Provider [phone] Reason for Visit * Auth/Cert Specialty Diagnoses / Procedures Referred By Carroll lopez Referred To Contact Diagnoses STEMI (ST elevation myocardial infarction) STEMI Procedures CARDIAC CATHETERIZATION EMERGENCY Delroy Monterroso MD [place] [address] [facility] Referral ID Status Reason Start Date Expiration Date Visits Re quested Visits Authorized [id number] 1 1 Encounter Details Date Type Department Care Team (Late st Contact Info) Description 06/02/2024 11:00 PM EDT - 06/03/2024 12:18 AM EDT Surgery [place] [address] Nuha Shen MD [place] [address] CARDIAC CATHETERIZATION Social History Tobacco Use Types Packs/Day Years Used Date Smoking Tobacco: Every Day Cigarettes Smokeless Tobacco: Never Tobacco Cessation:Ready to Q uit: No; Counseling Given: Yes [facility] Utilities Answer Date Recorded In the past 12 months has [employer], gas, oil, or water [employer] threatened to shut off services in your [...] any time in the past [address] [facility], were you homeless or living in a [...] Patient Age: 69 y.o. Birthdate: 1955 Language: Fijian Race: Choose not to Disclose Ethnicity: Not nor Admit Date: 06/02/2024 Discharge Date: 06/21/2024 Attending Physician: Bobby Loja MD Follow-up Recommendations for Providers: Please continue routine management of cardiovascular risk factors including blood pressure, lipids,glucose, etc. Please note any changes to medications. Patient to follow up with PCP, Mauro Berumen MD, in 1-2 weeks. Patient to follow up with Campaign Consultant, Kristen Cardenas in 2-3 weeks. Patient to follow up with Cardiac Surgeon, Dr. Bobby Loja, in 4 wks. Inpatient Provider Contact Information: [facility] Section of Cardiac Surgery [facility] [address] FAX [phone] Discharge Diagnoses (Hospital Problems) Primary Diagnoses: STEMI [...] performed by Bobby Loja MD [facility] OR PRO CABG, ARTERY-VEIN, TWO N/A 06/14/2024 @CABG, TWO VENOUS GRAFTS & ARTERIAL GRAFT (WRVU 7.93) performed by Bobby Loja MD at [facility] OR PRO ENDOSCOPY W/VIDEO-ASST VEIN HARVEST, CABG N/A 06/14/2024 ENDOSCOPIC HARVEST VEIN(S) FOR CABG (WRVU 0.31) performed by Bobby Loja MD at [facility] MAIN OR PRO EXC MEDIASTINAL TUMOR N/A 06/14/2024 @EXCISION OF MEDIASTINAL TUMOR (WRVU 19.55) performed by Bobby Loja MD at [facility] OR PRO INSERT INTRA-AORTIC BALLOON ASST DEVICE PERCUTANEOUS N/A 06/13/2024 @INSERTION OF IABP,PERCUTANEOUS (WRVU 4.84) performed by Nuha Shen MD at [facility] CATH LABS PRO UNLISTED CARDIAC SURG PROCEDURE N/A 06/14/2024 EXPLORATION AND OVERSEW ATRIAL APPENDAGE (WRVU 5.94) performed by Bobby Loja MD at [facility] [place] Prior To Admission Medications Medications [...] y.o. male with a PMHx of previous MN s/p PCI x3, ICM/HFrEF (LVEF 30%) s/p ICD, DMII, HTN, HLD, remote melanoma, and smoker who presented to [facility] last night via EMS after developing acute, severe chest pain while watching TV. Patient was ruled in for STEMI, given TNK, ASA, plavix, heparin gtt, and sent to [facility] for coronary angiography. LHC demonstrated severely calcified left coronary system with notable LCx 75/80% lesions and FUSING LINE INSPECTOR OM1 with ISR with collateral retrograde filling, [...] Hospital Course: George Mehta was [facility] 06[facility]2024 via the CardiologyService with an anterior STEMI after receiving lytics at OSH. He was brought to the catheterization laboratory technician which showed severely calcified left coronary system with notable LCx 75/80% lesions and FUSING LINE INSPECTOR OM1 with ISR with collateral retrograde filling, [...] juice or regular (not diet) soda 6 Viajalaavers small box of raisins 4 glucose tablets [...] 2 tablespoons of dried fruit. Milk and hd-dyabm-axrpi yogurt have 15 grams of carbs in a serving. A serving is 1 cup of milk or 3/4 cup (6 oz) of fo-dpuzh-nvxqh yogurt. Starchy vegetables have 15 grams of carbs in a serving. A serving is ?? cup of mashed potatoes or sweet potato; 1 cup winter squash; ?? of a small baked potato; ?? cup of cooked beans; or ?? cup cooked corn or green peas. Learn how much carbs to eat each day and at each meal. A dietitian or certified wellness program coordinator can teach you how to keep track [...] Bobby Loja and/or the Cardiac Surgery Physician Cigar Packer Team may be reached at . Weight: [...] Dr. Bobby Loja. You may use a [place] Track or treadmill but avoid any pulling [...] friends, go to a movie, go to confucianism, etc. Heavy activities: No hunting, skiing, jogging, snow shoveling, snowmobiling, lawn mowing, swimming,golf or tennis until after your return appointment with the surgeon. Do not ride motorcycles, ATModusly'stractors or horses. Avoid the use of a [...] should resume a low fat, low cholesterol, [place] Heart Association Diet/Diabetic diet. Driving: No driving [...] while being managed by your PCP and/or Campaign Consultant. For future medication refills, please refer to your PCP and/or Campaign Consultant after your discharge from our service. Thank you REMOVE CHEST TUBE SUTURES ON OR AFTER 06/24/2024 Home oxygen therapy: N/A Follow up appointments: You should follow up with your PCP, Mauro Berumen MD, in 1-2 weeks. You should follow up with your Campaign Consultant, Dr CARDENAS. You have an appointment with your Cardiac Surgeon, Dr. Bobby Loja, in 4 wks. Cardiac Rehabilitation: George Mehta was seen today regarding participation in the outpatient Phase 2 Cardiac Rehabilitation at [facility]. The patient agrees to a referral to this program. The referral will be sent at discharge and the patient should be contacted by the program within 1-2 weeks from discharge. Future Appointments and Orders Future Orders Complete By Expires Referral to Cardiac Rehab [ZUS772 Custom] As directed Process Instructions: If no progress note charted, please enter Clinical details in comments. Scheduling Instructions: Questions: My question or request is: s/p CABG- cardiac rehab at [facility] Referral to Home Health [REF34 Custom] As directed Process Instructions: If no progress note charted, please enter Clinical details in comments. Scheduling Instructions: Comments: Please evaluate George Mehta for admission to Home Health. [address] [facility] [address] (home) Date of : 1955 Inpatient DOCUMENTATION FOR VNA SERVICES (INCLUDING THOSE PATIENTS WITH MEDICARE COVERAGE REQUIRINGHOME VNA SERVICES AND/OR HOSPICE SERVICES) PATIENT'S LOCATION: George Mehta [address] [place] [address] [address] [facility] [address] (home) Telephone Information: Telesales Representative's Name: self In discussion with the attending physician, it is certified that this patient is under their care and that they, or a Nurse Practitioner, or Physician Cigar Packer who is working directly with them, hada [...] for services as follows: HOME HEALTH AGENCY: [facility] [address] [place] [phone] RN orders: Cardiopulmonary assessment, incisional assessment, assess [...] issues please call the Cardiology Office at [phone] FOR MEDICARE ONLY: (please delete this section [...] As above. Signed: KEILA HANLEY APRN [facility] Section of Cardiac Surgery [facility] [address] FAX [phone] Date: 06/21/2024 CC: MD Antonino Tinajero Joshua R, PA [address] [place] [address] [place] [address] documented in this encounter Discharge Instructions * [...] 2 tablespoons of dried fruit. Milk and ls-snnvx-qzwqq yogurt have 15 grams of carbs in a serving. A serving is 1 cup of milk or 3/4 cup (6 oz) of xa-qlkle-hvwcr yogurt. Starchy vegetables have 15 grams of carbs in a serving. A serving is ?? cup of mashed potatoes or sweet potato; 1 cup winter squash; ?? of a small baked potato; ?? cup of cooked beans; or ?? cup cooked corn or green peas. Learn how much carbs to eat each day and at each meal. A dietitian or certified wellness program coordinator can teach you how to keep track [...] Bobby Loja and/or the Cardiac Surgery Physician Cigar Packer Team may be reached at . Weight: [...] Dr. Bobby Loja. You may use a [place] Track or treadmill but avoid any pulling [...] friends, go to a movie, go to confucianism, etc. Heavy activities: No hunting, skiing, jogging, snow shoveling, snowmobiling, lawn mowing, swimming,golf or tennis until after your return appointment with the surgeon. Do not ride motorcycles, ATModusly'stractors or horses. Avoid the use of a [...] should resume a low fat, low cholesterol, [place] Heart Association Diet/Diabetic diet. Driving: No driving [...] while being managed by your PCP and/or Campaign Consultant. For future medication refills, please refer to your PCP and/or Campaign Consultant after your discharge from our service. Thank you REMOVE CHEST TUBE SUTURES ON OR AFTER 06/24/2024 Home oxygen therapy: N/A Follow up appointments: You should follow up with your PCP, Mauro Berumen MD, in 1-2 weeks. You should follow up with your Campaign Consultant, Dr CARDENAS. You have an appointment with your Cardiac Surgeon, Dr. Bobby Loja, in 4 wks. Cardiac Rehabilitation: George Mehta was seen today regarding participation in the outpatient Phase 2 Cardiac Rehabilitation at [facility]. The patient agrees to a [...] or weekly) [] Other * Alejandra Baumann, EMBOSSING PRESS OPERATOR MOLDED GOODS - 06/21/2024 7:05 AM EST Follow Up [...] MARIALUISA clipping. PMH of chronic HFrEF s/p EVENT PLANNING MANAGER/ICD, IDDM2, HTN, HLD, remote melanoma, active smoker. [...] 2 tablespoons of dried fruit. Milk and os-avjzh-gvczm yogurt have 15 grams of carbs in a serving. A serving is 1 cup of milk or 3/4 cup (6 oz) of jx-fkpuo-obdbd yogurt. Starchy vegetables have 15 grams of carbs in a serving. A serving is ?? cup of mashed potatoes or sweet potato; 1 cup winter squash; ?? of a small baked potato; ?? cup of cooked beans; or ?? cup cooked corn or green peas. Learn how much carbs to eat each day and at each meal. A dietitian or certified wellness program coordinator can teach you how to keep track [...] cheese, and peanut butter. Alejandra Baumann APRN [facility] Endocrinology Diabetes Management Pager [phone] Weekends please page [phone] * Eric Packer PA - 06/20/2024 7:44 AM EST Cardiac Surgery Progress Note George Mehta is a 69 y.o. male with a history of CAD s/p multiple PCI who presented with an anterior STEMI and was given lytics. Cath showed MV CAD without culprit vessel. He is now 6 Days Post-OpCABGx3 and MARIALUISA clipping. PMH of chronic HFrEF s/p EVENT PLANNING MANAGER/ICD, IDDM2, HTN, HLD, remote melanoma, active smoker. 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 #IDDM2 DM team following Lantus, SSI Carb controlled diet #Active smoker Duoneb prn Dispo: Floor, full code, home when ready Discussed with attending surgeon on rounds this morning. 06/20/2024 Between the hours of 1800 - 0600 and on the weekends please page [phone]. * Alejandra Baumann, EMBOSSING PRESS OPERATOR [employer] - 06/20/2024 7:21 AM EST Follow Up Diabetes Consult Patient Interview Blood glucose values and insulin use reviewed. armature varnisher BG to 59 despite decrease in glargine [...] MARIALUISA clipping. PMH of chronic HFrEF s/p EVENT PLANNING MANAGER/ICD, IDDM2, HTN, HLD, remote melanoma, active smoker. armature varnisher BG to 59 despite decrease in glargine [...] based on ISF 20 Alejandra Baumann APRN [facility] Endocrinology Diabetes Management Pager [phone] Weekends please page [phone] Insulin Discharge Instructions Preliminary Diabetes Discharge Instructions [...] 2 tablespoons of dried fruit. Milk and tq-jcnmv-cqxdz yogurt have 15 grams of carbs in a serving. A serving is 1 cup of milk or 3/4 cup (6 oz) of mp-jzzei-kispc yogurt. Starchy vegetables have 15 grams of carbs in a serving. A serving is ?? cup of mashed potatoes or sweet potato; 1 cup winter squash; ?? of a small baked potato; ?? cup of cooked beans; or ?? cup cooked corn or green peas. Learn how much carbs to eat each day and at each meal. A dietitian or certified wellness program coordinator can teach you how to keep track [...] MARIALUISA clipping. PMH of chronic HFrEF s/p EVENT PLANNING MANAGER/ICD, IDDM2, HTN, HLD, remote melanoma, active smoker. 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 Tx to floor #IDDM2 DM team following pre-op Lantus, SSI Carb controlled diet #Active smoker Duoneb prn Dispo: Floor status, full code Discussed with attending surgeon on rounds this morning. Jeffy Hood MD 06/19/2024 Between the hours of 1800 - 0600 and on the weekends please page [phone]. * Alejandra Baumann, EMBOSSING PRESS OPERATOR [employer] - 06/19/2024 7:09 AM EST Follow Up Diabetes Consult Patient Interview Blood glucose values and insulin use reviewed. Jardiance added back yesterday, head of loss prevention low BGto 51. Glargine reduced to 45 [...] MARIALUISA clipping. PMH of chronic HFrEF s/p EVENT PLANNING MANAGER/ICD, IDDM2, HTN, HLD, remote melanoma, active smoker. Jardiance added back yesterday. armature varnisher low BG to 51. Glargine reduced to [...] 2 tablespoons of dried fruit. Milk and zl-wyxxz-tquvb yogurt have 15 grams of carbs in a serving. A serving is 1 cup of milk or 3/4 cup (6 oz) of ho-fcbwy-afrxm yogurt. Starchy vegetables have 15 grams of carbs in a serving. A serving is ?? cup of mashed potatoes or sweet potato; 1 cup winter squash; ?? of a small baked potato; ?? cup of cooked beans; or ?? cup cooked corn or green peas. Learn how much carbs to eat each day and at each meal. A dietitian or certified wellness program coordinator can teach you how to keep track [...] cheese, and peanut butter. Alejandra Baumann APRN [facility] Endocrinology Diabetes Management Pager [phone] Weekends please page [phone] * Hilda Resendez, BREAKFAST MANAGER - 06/18/2024 9:19 AM EST Physical Therapy Note 2 Patient profile: George Mehta is a 69 y.o. male with a history of CAD s/p multiple PCI who presented with an anterior STEMI and was given lytics. Cath showed MV CAD without culprit vessel. He is now 1 Day Post-Op CABGx3 and MARIALUISA clipping. PMH of chronic HFrEF s/p EVENT PLANNING MANAGER/ICD, IDDM2, HTN, HLD, remote melanoma, active smoker. Interval History: Per last cardiac surgery note on 06/18/2024 Cr improved 1.4 on lasix 40 iv bid -1.5L, made 2.5L urine Coreg, entresto restarted Floor status Social History: Pt lives with his in a 1 level apartment with no steps to enter. 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 He drives. He sleeps in a recliner at baseline. Precautions/Special Considerations: Sternal precautions, PIV, at risk to fall, PPM Mobility and Positioning Recommendations: Pt to utilize no AD, supervision for ambulation and transfers w/ direct care staffer as able. Please encourage up to chair [...] least restrictive device Time IN / OUT: 6931-8142 Total Time: 11 minutes; TEF 1 Hilda Resendez PTA Pager: [phone] Physical Therapy Inpatient Rehabilitation Department * Keila [...] MARIALUISA clipping. PMH of chronic HFrEF s/p EVENT PLANNING MANAGER/ICD, IDDM2, HTN, HLD, remote melanoma, active smoker. 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, will get name for f/up appt Tx to floor #IDDM2 DM team following pre-op Lantus, SSI Carb controlled diet ? Restarting jardiance #Active smoker Duoneb prn Dispo: CVCC, Full code, tx to floor Discussed with attending surgeon on rounds this morning. KEILA HANLEY, JOSÉ ANTONIO 06/18/2024 Between the hours of 1800 - 0600 and on the weekends please page [phone]. * Alejandra Baumann, EMBOSSING PRESS OPERATOR M[employer]ED [employer] - 06/17/2024 3:29 PM EST Follow Up [...] MARIALUISA clipping. PMH of chronic HFrEF s/p EVENT PLANNING MANAGER/ICD, IDDM2, HTN, HLD, remote melanoma, active smoker. [...] based on ISF 20 Alejandra Baumann APRN [facility] Endocrinology Diabetes Management Pager [phone] Weekends please page [phone] 35 minutes were spent over the course [...] MARIALUISA clipping. PMH of chronic HFrEF s/p EVENT PLANNING MANAGER/ICD, IDDM2, HTN, HLD, remote melanoma, active smoker. [...] on the weekends please page [phone]. * Raymond Carlton MD - 06/16/2024 1:11 PM EST CARDIAC CRITICAL CARE ATTENDING STAFF PROGRESS NOTE Patient seen and examined. George Mehta is a 69 y.o. male with: Active Hospital Problems Diagnosis STEMI (ST elevation myocardial infarction) Cardiac resynchronization therapy defibrillator (EVENT PLANNING MANAGER-D) - Medtronic Amplia Cardiomyopathy, ischemic Acute on chronic heart failure with reduced ejection fraction (HFrEF, <= 40%) Coronary artery disease involving andreafski coronary artery of andreafski heart without angina pectoris Type 2 diabetes [...] unless consulted in the interim. RICHA Simmons Linen Manager * Octaviano Horvath PA - 06/16/2024 8:07 AM EST Cardiac Surgery Progress Note George Mehta is a 69 y.o. male with a history of CAD s/p multiple PCI who presented with an anterior STEMI and was given lytics. Cath showed MV CAD without culprit vessel. He is now 2 Days Post-OpCABGx3 and MARIALUISA clipping. PMH of chronic HFrEF s/p EVENT PLANNING MANAGER/ICD, IDDM2, HTN, HLD, remote melanoma, active smoker. [...] 0600 and on the weekends please page [phone]. * Jono Fernandez, PT - 06/15/2024 4:09 PM EST Physical Therapy Evaluation Patient profile: George Mehta is a 69 y.o. male with a history of CAD s/p multiple PCI who presented with an anterior STEMI and was given lytics. Cath showed MV CAD without culprit vessel. He is now 1 Day Post-Op CABGx3 and MARIALUISA clipping. PMH of chronic HFrEF s/p EVENT PLANNING MANAGER/ICD, IDDM2, HTN, HLD, remote melanoma, active smoker. 24h Events: From OR on Dobutamine IABP removed Bedrest ended ~2100, sedation weaned Extubated ~0200 Dobutamine weaned to 1 this morning, CI 2.6, shut off and repeat CI 2.4 Social History: Pt lives with his in a 1 level apartment with no steps to enter. 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 He drives. He sleeps [...] outlined inthis evaluation. JONO FERNANDEZ, PT Pager: [phone] Physical Therapy Inpatient Rehabilitation Department Time IN / OUT: 1223-2327 Total Time: 33 (eval) minutes * Alejandra Baumann APRN - 06/15/2024 11:39 AM EST Follow Up Diabetes Consult Patient Interview Blood glucose values and insulin use reviewed. Pt remains on an insulin drip today following HBCHl0xnw MARIALUISA clipping. George continues to complain of [...] MARIALUISA clipping. PMH of chronic HFrEF s/p EVENT PLANNING MANAGER/ICD, IDDM2, HTN, HLD, remote melanoma, active smoker. [...] based on ISF 20 Alejandra Baumann APRN [facility] Endocrinology Diabetes Management Pager [phone] Weekends please page [phone] 50 minutes were spent over the course [...] elevation myocardial infarction) Cardiac resynchronization therapy defibrillator (EVENT PLANNING MANAGER-D) - Medtronic Amplia Cardiomyopathy, ischemic Acute on chronic heart failure with reduced ejection fraction (HFrEF, <= 40%) Coronary artery disease involving andreafski coronary artery of andreafski heart without angina pectoris Type 2 diabetes [...] with h/o DM, CAD with prior PCI, EVENT PLANNING MANAGER-D who presented with crushing chest pain, found [...] MARIALUISA clipping. PMH of chronic HFrEF s/p EVENT PLANNING MANAGER/ICD, IDDM2, HTN, HLD, remote melanoma, active smoker. [...] sternotomy dressing CDI, saphenectomy dressing CDi Tubes/Lines/Drains: [place], RIJ, A-line, Mediastinal marcos and bilateral pleural [...] 0600 and on the weekends please page [phone]. * Yoli Donaldson, [facility] - 06/15/2024 5:35 AM EST AMV [...] with h/o DM, CAD with prior PCI, EVENT PLANNING MANAGER-D who presented with crushing chest pain, found [...] with h/o DM, CAD with prior PCI, EVENT PLANNING MANAGER-D who presented with crushing chest pain, found [...] 0600 and on the weekends please page [phone]. * Chloé Cortez - 06/14/2024 9:36 AM [...] unless consulted in the interim. Chloé Cortez Dairy Equipment Specialist * Jim Benites MD - 06/13/2024 [...] - Mildly dilated left ventricle size with adskljor-qj-hqxqcmfh decreased LV systolic function. LV ejection fraction [...] ACS/crushing chest pain, likely due to lateral MN, found to have surgical CAD with viability [...] interventions and documentation on the unit. Jim Beniets MD Cardiology Attending 06/13/2024 1:15 PM * [...] (abstinent since admission), ASCVD with multiple prior MN and PCIs, ICM/HFrEF LVEF 30% (all territories [...] elevation myocardial infarction) Cardiac resynchronization therapy defibrillator (EVENT PLANNING MANAGER-D) - Medtronic Amplia Cardiomyopathy, ischemic Acute on chronic heart failure with reduced ejection fraction (HFrEF, <= 40%) Coronary artery disease involving andreafski coronary artery of andreafski heart without angina pectoris Type 2 diabetes [...] PCP: Mauro Berumen MD PCP phone number: [phone] Date of Admission: 06/02/2024 ( Hospital Day 10 days ) Attending:Ethel Carrillo MD ID: 69 y.o. male with a h/o DM type 2, HTN, HLD, current smoker (2-3 cigarettes/day), HFrEF with anICD for low EF (~30%), and CAD with prior MN x3 with JENNA placed in [place], Melanoma, PAD, presented to [facility] with 1 hour of retrosternal CP (05/13) while watching TV, found to have STEMI. Active Problems: Active Hospital Problems Diagnosis STEMI (ST elevation myocardial infarction) Cardiac resynchronization therapy defibrillator (EVENT PLANNING MANAGER-D) - Medtronic Amplia Cardiomyopathy, ischemic Acute on chronic heart failure with reduced ejection fraction (HFrEF, <= 40%) Coronary artery disease involving andreafski coronary artery of andreafski heart without angina pectoris Type 2 diabetes [...] in the last 7068 hours. Invalid input(s): [id number] Recent Labs 06/12/24 0425 06/11/24 2356 06/11/24 2025 06/11/24 1624 06/11/24 1108 06/11/24 0748 06/11/24 0357 06/11/24 0050 06/10/24 1922 06/10/24 1735 06/10/24 1125 06/10/24 0746 POCGLU 132 135 210* 81 233* 184 132 144 236* 123 216* 206* Heme No results for input(s): LDH, HAPTOGLOBIN, URICACID in the last 168 hours. ABG (Arterial Blood Gas) No results found for: PHART, PO2ART, AMU8EVX, VSS1PXX Microbiology: Microbiology Results (Last 30 days) No results found for the last 720 hours. Imaging: Results for orders placed or performed during the hospital encounter of 06/02/24 XR Chest One View (Exam End: 06/03/2024 2:41 AM) Result Value WORKSTATION ID [id number] Impression No radiographically evident acute cardiopulmonary process. Thank you for letting us participate in the care of this patient. If you are a health care provider and have any questions regarding this report, please contact the number below. For patients who have questions please contact the health rn progressive care unit that requested your imaging first. Electronically signed by: Corazon Mauro MD, [facility] ([phone]), at 06/03/2024 3:06 AM MRI Cardiac Morphology Function wwo Contrast (Exam End: 06/07/2024 1:10 PM) Result Value WORKSTATION ID [id number] Impression - Findings consistent with an ischemic [...] - Mildly dilated left ventricle size with wdtcaaku-pw-tcvuiszs decreased LV systolic function. LV ejection fraction [...] who have questions please contact the health rn progressive care unit that requested your imaging first. Electronically signed by: Kriss Alonzo MD, [facility] ([phone]), at 06/07/2024 2:[address] Chest wo Contrast (Generic) (Exam End: 06/03/2024 4:33 PM) Result Value WORKSTATION ID [id number] Impression Cardiomegaly. Biventricular ICD leads in place. Thank you for letting us participate in the care of this patient. If you are a health care provider and have any questions regarding this report, please contact the number below. For patients who have questions please contact the health rn progressive care unit that requested your imaging first. Electronically signed by: Stuart Aponte MD, [facility] ([phone]), at 06/03/2024 4:47 PM XR Chest PA & Lateral (Generic) (Exam End: 06/07/2024 7:03 AM) Result Value WORKSTATION ID [id number] Impression Biventricular ICD leads intact and in [...] who have questions please contact the health rn progressive care unit that requested your imaging first. Electronically signed by: Stuart Aponte MD, [facility] ([phone]), at 06/07/2024 10:45 AM TTE: Limited echo performed by fellow conditioner tumbler operator to assess LV function. Left ventricle [...] ischemic cardiomyopathy with HFrEF (~30% EF), prior MN with stents, DM type 2, HTN, HLD, active smoker, presented with anterior STEMI. Angiography revealed severe multivessel CAD with extensive calcification and YUE 3 flow in all vessels, without a clear culprit lesion. Currently pain-free after TNK, Plavix, ASA, and heparin, with mildly elevated LVEDP at 40 mmHg and mild volume overload. 06/12/24: Patient stable, asymptomatic. Plan to go to catheterization laboratory technician for balloon pump tomorrow, then [...] CODE Dain Colón MD Cardiology, M1-S2, Pager #[phone] 06/12/24 Associated attestation - Ethel Carrillo MD [...] (abstinent since admission), ASCVD with multiple prior MN and PCIs, ICM/HFrEF LVEF 30% (all territories [...] of two midnights or is on the [facility] inpatient only procedure list (status C) due to: acute myocardial infarction requiring titration of IV medication and fluid monitoring and decompensated congestive heart failure requiring IV medication and fluid monitoring Ethel Carrillo MD Cardiovascular Medicine Personal Pager [phone] 06/12/2024 9:12 PM * Alejandra Baumann, EMBOSSING PRESS OPERATOR MOLDED GOODS - 06/11/2024 4:21 PM EST Images from [...] too aggressive, suggest ICR 1:6 (rule of [id number] = 6.25). George is up and walking [...] ischemic cardiomyopathy with HFrEF (~30% EF), prior MN with stents, DM type 2, HTN, HLD, [...] ac, metformin 1000mg BID Alejandra Baumann APRN [facility] Endocrinology Diabetes Management Pager [phone] Weekends please page [phone] 35 minutes were spent over the course [...] PCP: Mauro Berumen MD PCP phone number: [phone] Date of Admission: 06/02/2024 ( Hospital Day 9 days ) Attending:Melida Valdes MD ID: 69 y.o. male with a h/o DM type 2, HTN, HLD, current smoker (2-3 cigarettes/day), HFrEF with anICD for low EF (~30%), and CAD with prior MN x3 with JENNA placed in [place], Melanoma, PAD, presented to [facility] with 1 hour of retrosternal CP (05/13) while watching TV, found to have STEMI. Active Problems: Active Hospital Problems Diagnosis STEMI (ST elevation myocardial infarction) Cardiac resynchronization therapy defibrillator (EVENT PLANNING MANAGER-D) - Medtronic Amplia Cardiomyopathy, ischemic Acute on chronic heart failure with reduced ejection fraction (HFrEF, <= 40%) Coronary artery disease involving andreafski coronary artery of andreafski heart without angina pectoris Type 2 diabetes [...] in the last 7068 hours. Invalid input(s): [id number] Recent Labs 06/11/24 0357 06/11/24 0050 06/10/24 1922 06/10/24 1735 06/10/24 1125 06/10/24 0746 06/10/24 0423 06/10/24 0005 06/09/24 2036 06/09/24 1727 06/09/24 1152 06/09/24 0810 POCGLU 132 144 236* 123 216* 206* 154 125 197 174 211* 209* Heme No results for input(s): LDH, HAPTOGLOBIN, URICACID in the last 168 hours. ABG (Arterial Blood Gas) No results found for: PHART, PO2ART, SYV6UFP, NWZ6NZK Microbiology: Microbiology Results (Last 30 days) No results found for the last 720 hours. Imaging: Results for orders placed or performed during the hospital encounter of 06/02/24 XR Chest One View (Exam End: 06/03/2024 2:41 AM) Result Value WORKSTATION ID [id number] Impression No radiographically evident acute cardiopulmonary process. Thank you for letting us participate in the care of this patient. If you are a health care provider and have any questions regarding this report, please contact the number below. For patients who have questions please contact the health rn progressive care unit that requested your imaging first. Electronically signed by: Corazon Mauro MD, [facility] ([phone]), at 06/03/2024 3:06 AM MRI Cardiac Morphology Function wwo Contrast (Exam End: 06/07/2024 1:10 PM) Result Value WORKSTATION ID [id number] Impression - Findings consistent with an ischemic [...] - Mildly dilated left ventricle size with tylyaiog-wo-wlbhjjpj decreased LV systolic function. LV ejection fraction [...] who have questions please contact the health rn progressive care unit that requested your imaging first. Electronically signed by: Kriss Alonzo MD, [facility] ([phone]), at 06/07/2024 2:[address] Chest wo Contrast (Generic) (Exam End: 06/03/2024 4:33 PM) Result Value WORKSTATION ID [id number] Impression Cardiomegaly. Biventricular ICD leads in place. Thank you for letting us participate in the care of this patient. If you are a health care provider and have any questions regarding this report, please contact the number below. For patients who have questions please contact the health rn progressive care unit that requested your imaging first. Electronically signed by: Stuart Aponte MD, [facility] ([phone]), at 06/03/2024 4:47 PM XR Chest PA & Lateral (Generic) (Exam End: 06/07/2024 7:03 AM) Result Value WORKSTATION ID [id number] Impression Biventricular ICD leads intact and in [...] who have questions please contact the health rn progressive care unit that requested your imaging first. Electronically signed by: Stuart Aponte MD, [facility] ([phone]), at 06/07/2024 10:45 AM TTE: Limited echo performed by fellow conditioner tumbler operator to assess LV function. Left ventricle [...] ischemic cardiomyopathy with HFrEF (~30% EF), prior MN with stents, DM type 2, HTN, HLD, [...] on placing this weekend and transfer to [facility], likely Friday. #ASCVD / STEMI: -Holding [...] CODE Dain Colón MD Cardiology, M1-S2, Pager #[phone] 06/11/24 Associated attestation - Ethel Carrillo MD [...] (abstinent since admission), ASCVD with multiple prior MN and PCIs, ICM/HFrEF LVEF 30% (all territories [...] of two midnights or is on the [facility] inpatient only procedure list (status C) due to: acute myocardial infarction requiring titration of IV medication and fluid monitoring and decompensated congestive heart failure requiring IV medication and fluid monitoring Ethel Carrillo MD Cardiovascular Medicine Personal Pager [phone] 06/11/2024 9:35 PM * Hilary Belle 06/10/2024 12:39 PM EST Nutrition Services Note George Mehta is a 69 y.o. male Reason for intervention: hospital day 9 Nutrition Plan: Continue diet order: 60/60/75 CHO Level 2 Encourage good PO Lasix and Insulin noted Monitor weight Patient scheduled for a hospital day 9 nutrition evaluation. Rail Engineer attempted to meet with pt at [...] unless consulted in the interim. Hilary Belle Linen Manager * Mariia Montero RN - 06/10/2024 12:23 PM EST I have met with the patient to: discuss discharge planning needs. provide the [facility], Office of Care Management letter from the Butcher'S Assistant pertaining to rehab referrals. provide a letter describing our affiliations within the [facility] and educate about their right to choose where referrals are sent. provide a list of Home Health Agencies / Durable Medical Equipment vendors which serve their preferred geographic area. provided patient with [facility] Star Quality Rating handout. They have requested referrals to: [facility]. [address] [place] [id number] RN / PT Anticipated d/c date: 06/20/24 Note routed to a Electroplater who will communicate referrals to facilities and provide any required information. * Dain Colón MD - 06/10/2024 7:17 AM EST Images from the original note were not included. . Cardiology Progress Note Patient info: Name: George Mehta : 1955 PCP: Mauro Berumen MD PCP phone number: [phone] Date of Admission: 06/02/2024 ( Hospital Day 8 days ) Attending:Melida Valdes MD ID: 69 y.o. male with a h/o DM type 2, HTN, HLD, current smoker (2-3 cigarettes/day), HFrEF with anICD for low EF (~30%), and CAD with prior MN x3 with JENNA placed in [place], Melanoma, PAD, presented to [facility] with 1 hour of retrosternal CP (05/13) while watching TV, found to have STEMI. Active Problems: Active Hospital Problems Diagnosis STEMI (ST elevation myocardial infarction) Cardiac resynchronization therapy defibrillator (EVENT PLANNING MANAGER-D) - Medtronic Amplia Cardiomyopathy, ischemic Acute on chronic heart failure with reduced ejection fraction (HFrEF, <= 40%) Coronary artery disease involving andreafski coronary artery of andreafski heart without angina pectoris Type 2 diabetes [...] in the last 7068 hours. Invalid input(s): [id number] Recent Labs 06/10/24 0423 06/10/24 0005 06/09/24 2036 06/09/24 1727 06/09/24 1152 06/09/24 0810 06/09/24 0440 06/09/24 0034 06/08/24 2027 06/08/24 1616 06/08/24 1235 06/08/24 0810 POCGLU 154 125 197 174 211* 209* 131 186 176 159 226* 190 Heme No results for input(s): LDH, HAPTOGLOBIN, URICACID in the last 168 hours. ABG (Arterial Blood Gas) No results found for: PHART, PO2ART, HMZ6QQS, DXH6YGM Microbiology: Microbiology Results (Last 30 days) No results found for the last 720 hours. Imaging: Results for orders placed or performed during the hospital encounter of 06/02/24 XR Chest One View (Exam End: 06/03/2024 2:41 AM) Result Value WORKSTATION ID [id number] Impression No radiographically evident acute cardiopulmonary process. Thank you for letting us participate in the care of this patient. If you are a health care provider and have any questions regarding this report, please contact the number below. For patients who have questions please contact the health rn progressive care unit that requested your imaging first. Electronically signed by: Corazon Mauor MD, [facility] ([phone]), at 06/03/2024 3:06 AM MRI Cardiac Morphology Function wwo Contrast (Exam End: 06/07/2024 1:10 PM) Result Value WORKSTATION ID [id number] Impression - Findings consistent with an ischemic [...] - Mildly dilated left ventricle size with jtzrhuvi-hn-oimwzpte decreased LV systolic function. LV ejection fraction [...] who have questions please contact the health rn progressive care unit that requested your imaging first. Electronically signed by: Kriss Alonzo MD, [facility] ([phone]), at 06/07/2024 2:[address] Chest wo Contrast (Generic) (Exam End: 06/03/2024 4:33 PM) Result Value WORKSTATION ID [id number] Impression Cardiomegaly. Biventricular ICD leads in place. Thank you for letting us participate in the care of this patient. If you are a health care provider and have any questions regarding this report, please contact the number below. For patients who have questions please contact the health rn progressive care unit that requested your imaging first. Electronically signed by: Stuart Aponte MD, [facility] ([phone]), at 06/03/2024 4:47 PM XR Chest PA & Lateral (Generic) (Exam End: 06/07/2024 7:03 AM) Result Value WORKSTATION ID [id number] Impression Biventricular ICD leads intact and in [...] who have questions please contact the health rn progressive care unit that requested your imaging first. Electronically signed by: Stuart Aponte MD, [facility] ([phone]), at 06/07/2024 10:45 AM TTE: Limited echo performed by fellow conditioner tumbler operator to assess LV function. Left ventricle [...] ischemic cardiomyopathy with HFrEF (~30% EF), prior MN with stents, DM type 2, HTN, HLD, [...] CODE Dain Colón MD Cardiology, M1-S2, Pager #[phone] 06/10/24 Associated attestation - Melida Valdes MD [...] a lytic and brought directly to the Migratory Worker. Cardiac catheterization demonstrated multivessel disease with severe [...] who is agreeable Melida Valdes MD Staff Campaign Consultant * Cherelle Fregoso, JOSÉ ANTONIO - 06/09/2024 [...] ischemic cardiomyopathy with HFrEF (~30% EF), prior MN with stents, DM type 2, HTN, HLD, [...] PCP: Mauro Berumen MD PCP phone number: [phone] Date of Admission: 06/02/2024 ( Hospital Day 7 days ) Attending:Melida Valdes MD ID: 69 y.o. male with a h/o DM type 2, HTN, HLD, current smoker (2-3 cigarettes/day), HFrEF with anICD for low EF (~30%), and CAD with prior MN x3 with JENNA placed in [place], Melanoma, PAD, presented to [facility] with 1 hour of retrosternal CP (05/13) while watching TV, found to have STEMI. Active Problems: Active Hospital Problems Diagnosis STEMI (ST elevation myocardial infarction) Acute on chronic heart failure with reduced ejection fraction (HFrEF, <= 40%) Coronary artery disease involving andreafski coronary artery of andreafski heart without angina pectoris Type 2 diabetes [...] in the last 7068 hours. Invalid input(s): [id number] Recent Labs 06/09/24 0440 06/09/24 0034 06/08/24202606/08/24 1616 06/08/24 1235 06/08/24 0810 06/08/24 0409 06/07/24 2357 06/07/24 2005 06/07/24 1631 06/07/24 1105 06/07/24 1103 POCGLU 131 186 176 159 226* 190 151 188 118 174 221* 250* Heme No results for input(s): LDH, HAPTOGLOBIN, URICACID in the last 168 hours. ABG (Arterial Blood Gas) No results found for: PHART, PO2ART, QDM8PCK, BBL9SBN Microbiology: Microbiology Results (Last 30 days) No results found for the last 720 hours. Imaging: Results for orders placed or performed during the hospital encounter of 06/02/24 XR Chest One View (Exam End: 06/03/2024 2:41 AM) Result Value WORKSTATION ID [id number] Impression No radiographically evident acute cardiopulmonary process. Thank you for letting us participate in the care of this patient. If you are a health care provider and have any questions regarding this report, please contact the number below. For patients who have questions please contact the health rn progressive care unit that requested your imaging first. Electronically signed by: Corazon Mauro MD, [facility] ([phone]), at 06/03/2024 3:06 AM MRI Cardiac Morphology Function wwo Contrast (Exam End: 06/07/2024 1:10 PM) Result Value WORKSTATION ID [id number] Impression - Findings consistent with an ischemic [...] - Mildly dilated left ventricle size with jelsgvgn-yi-onwdeszi decreased LV systolic function. LV ejection fraction [...] who have questions please contact the health rn progressive care unit that requested your imaging first. Electronically signed by: Krsis Alonzo MD, [facility] ([phone]), at 06/07/2024 2:[address] Chest wo Contrast (Generic) (Exam End: 06/03/2024 4:33 PM) Result Value WORKSTATION ID [id number] Impression Cardiomegaly. Biventricular ICD leads in place. Thank you for letting us participate in the care of this patient. If you are a health care provider and have any questions regarding this report, please contact the number below. For patients who have questions please contact the health rn progressive care unit that requested your imaging first. Electronically signed by: Stuart Aponte MD, [facility] ([phone]), at 06/03/2024 4:47 PM XR Chest PA & Lateral (Generic) (Exam End: 06/07/2024 7:03 AM) Result Value WORKSTATION ID [id number] Impression Biventricular ICD leads intact and in [...] who have questions please contact the health rn progressive care unit that requested your imaging first. Electronically signed by: Stuart Aponte MD, [facility] ([phone]), at 06/07/2024 10:45 AM TTE: Limited echo performed by fellow conditioner tumbler operator to assess LV function. Left ventricle [...] Infusions: heparin (porcine) infusion 1,400 Units/hr (06/08/24 7727) PRN Meds:.glucose 40% oral geL OR dextrose [...] ischemic cardiomyopathy with HFrEF (~30% EF), prior MN with stents, DM type 2, HTN, HLD, [...] CODE Dain Colón MD Cardiology, M1-S2, Pager #[phone] 06/09/24 Associated attestation - Melida Valdes MD [...] a lytic and brought directly to the Migratory Worker. Cardiac catheterization demonstrated multivessel disease with severe [...] insertion low EF. Melida Valdes MD Staff Campaign Consultant * Alejandra Baumann, EMBOSSING PRESS OPERATOR MOLDED GOODS - 06/08/2024 4:10 PM EST Images from [...] ischemic cardiomyopathy with HFrEF (~30% EF), prior MN with stents, DM type 2, HTN, HLD, [...] to optimize glucose control Alejandra Baumann APRN [facility] Endocrinology Diabetes Management Pager [phone] Weekends please page [phone] 35 minutes were spent over the course [...] PCP: Mauro Berumen MD PCP phone number: [phone] Date of Admission: 06/02/2024 ( Hospital Day 6 days ) Attending:Melida Valdes MD ID: 69 y.o. male with a h/o DM type 2, HTN, HLD, current smoker (2-3 cigarettes/day), HFrEF with anICD for low EF (~30%), and CAD with prior MN x3 with JENNA placed in [place], Melanoma, PAD, presented to [facility] with 1 hour of retrosternal CP (05/13) while watching TV, found to have STEMI. Active Problems: Active Hospital Problems Diagnosis STEMI (ST elevation myocardial infarction) Acute on chronic heart failure with reduced ejection fraction (HFrEF, <= 40%) Coronary artery disease involving andreafski coronary artery of andreafski heart without angina pectoris Type 2 diabetes [...] in the last 7068 hours. Invalid input(s): [id number] Recent Labs 06/08/24 0409 06/07/24 2357 06/07/24 2005 06/07/24 1631 06/07/24 1105 06/07/24 1103 06/07/24 0745 06/07/24 0425 06/07/24 0008 06/06/24 2018 06/06/24 1539 06/06/24 1339 POCGLU 151 188 118 174 221* 250* 175 127 182 143 147 317* Heme No results for input(s): LDH, HAPTOGLOBIN, URICACID in the last 168 hours. ABG (Arterial Blood Gas) No results found for: PHART, PO2ART, KCX3KZJ, PVC6UZF Microbiology: Microbiology Results (Last 30 days) No results found for the last 720 hours. Imaging: Results for orders placed or performed during the hospital encounter of 06/02/24 XR Chest One View (Exam End: 06/03/2024 2:41 AM) Result Value WORKSTATION ID [id number] Impression No radiographically evident acute cardiopulmonary process. Thank you for letting us participate in the care of this patient. If you are a health care provider and have any questions regarding this report, please contact the number below. For patients who have questions please contact the health rn progressive care unit that requested your imaging first. Electronically signed by: Corazon Mauro MD, [facility] ([phone]), at 06/03/2024 3:06 AM MRI Cardiac Morphology Function wwo Contrast (Exam End: 06/07/2024 1:10 PM) Result Value WORKSTATION ID [id number] Impression - Findings consistent with an ischemic [...] - Mildly dilated left ventricle size with tnqkokdh-lv-ymopszno decreased LV systolic function. LV ejection fraction [...] who have questions please contact the health rn progressive care unit that requested your imaging first. Electronically signed by: Kriss Alonzo MD, [facility] ([phone]), at 06/07/2024 2:[address] Chest wo Contrast (Generic) (Exam End: 06/03/2024 4:33 PM) Result Value WORKSTATION ID [id number] Impression Cardiomegaly. Biventricular ICD leads in place. Thank you for letting us participate in the care of this patient. If you are a health care provider and have any questions regarding this report, please contact the number below. For patients who have questions please contact the health rn progressive care unit that requested your imaging first. Electronically signed by: Stuart Aponte MD, [facility] ([phone]), at 06/03/2024 4:47 PM XR Chest PA & Lateral (Generic) (Exam End: 06/07/2024 7:03 AM) Result Value WORKSTATION ID [id number] Impression Biventricular ICD leads intact and in [...] who have questions please contact the health rn progressive care unit that requested your imaging first. Electronically signed by: Stuart Aponte MD, [facility] ([phone]), at 06/07/2024 10:45 AM TTE: Limited echo performed by fellow conditioner tumbler operator to assess LV function. Left ventricle [...] ischemic cardiomyopathy with HFrEF (~30% EF), prior MN with stents, DM type 2, HTN, HLD, [...] CODE Dain Colón MD Cardiology, M1-S2, Pager #[phone] 06/08/24 Associated attestation - Melida Valdes MD - 06/08/2024 6:27 PM EST Cardiology Attending Attestation/Addendum: Please see Dani Colón MD's note for details of the [...] a lytic and brought directly to the Migratory Worker. Cardiac catheterization demonstrated multivessel disease with severe [...] Otherwise clinically stable Melida Valdes MD Staff Campaign Consultant * Ross Manuel PA - 06/07/2024 12:00 PM EST Cardiac Electrophysiology CIED Interrogation/Programming Note Asked by MRI staff to evaluate and program Medtronic EVENT PLANNING MANAGER-D to allow for MR imaging. Patient Active Problem List Diagnosis ','STEMI (ST elevation myocardial infarction) Acute on chronic heart failure with reduced ejection fraction (HFrEF, <= 40%) Coronary artery disease involving andreafski coronary artery of andreafski heart without angina pectoris Type 2 diabetes mellitus Device Data: Medtronic Amplia MRI Quad EVENT PLANNING MANAGER-D [id number] #[id number] 06/16/2019 RA Medtronic 4076 CapSureFix Novus [id number] 06/16/2019 RV Medtronic [id number] [id number] 06/16/2019 LV Medtronic 4298 Attain Performa MRI [id number] 06/16/2019 DDD @ 50/130/130 Adaptive Bi-V and LV VF >188bpm ATP, 35j x6 FVT >188-222bpm burst 2, 35jx5 VT Battery longevity: 2.5yrs; charge time 4s P wave: 2.3mV R wave: >20.0mV Atrial impedance: 458 ohms RV impedance: 646 ohms LV impedance: 722 ohms Atrial threshold: 0.5V @ 0.4ms RV threshold: LV threshold: 1.75V @ 0.4ms AP 0.2% GETTER WELDER 97.7% AT/AF 0% Impression and Plan: 1. Interrogated device to determine suitability for MRI 2. Programmed to MRI safe mode - VOO @ 70 3. Scan performed 4. Programming restored to baseline settings 5. Reinterrogated to verify appropriate function and settings 6. Device follow up as previously scheduled Provider: HENOK Meyer EP Consult attending physician: Libby Barton MD EP Consult positional pager #[phone](EPMD) EP Device interrogation positional pager # [phone] * Dain Colón MD - 06/07/2024 7:09 AM EST Images from the original note were not included. . Cardiology Progress Note Patient info: Name: George Mehta : 1955 PCP: Mauro Berumen MD PCP phone number: [phone] Date of Admission: 06/02/2024 ( Hospital Day 5 days ) Attending:Melida Valdes MD ID: 69 y.o. male with a h/o DM type 2, HTN, HLD, current smoker (2-3 cigarettes/day), HFrEF with anICD for low EF (~30%), and CAD with prior MN x3 with JENNA placed in [place], Melanoma, PAD, presented to [facility] with 1 hour of retrosternal CP (05/13) while watching TV, found to have STEMI. Active Problems: Active Hospital Problems Diagnosis STEMI (ST elevation myocardial infarction) Acute on chronic heart failure with reduced ejection fraction (HFrEF, <= 40%) Coronary artery disease involving andreafski coronary artery of andreafski heart without angina pectoris Type 2 diabetes [...] in the last 7068 hours. Invalid input(s): [id number] Recent Labs 06/07/24 0425 06/07/24 0008 06/06/24 2018 06/06/24 1539 06/06/24 1339 06/06/24 1134 06/06/24 0757 06/06/24 0653 06/05/24 2231 06/05/24 1622 06/05/24 1134 06/05/24 0727 POCGLU 127 182 143 147 317* 264* 195 187 238* 205* 211* 166 Heme No results for input(s): LDH, HAPTOGLOBIN, URICACID in the last 168 hours. ABG (Arterial Blood Gas) No results found for: PHART, PO2ART, KLC4PIG, OUH0WHR Microbiology: Microbiology Results (Last 30 days) No results found for the last 720 hours. Imaging: Results for orders placed or performed during the hospital encounter of 06/02/24 XR Chest One View (Exam End: 06/03/2024 2:41 AM) Result Value WORKSTATION ID [id number] Impression No radiographically evident acute cardiopulmonary process. Thank you for letting us participate in the care of this patient. If you are a health care provider and have any questions regarding this report, please contact the number below. For patients who have questions please contact the health rn progressive care unit that requested your imaging first. Chest wo Contrast (Generic) (Exam End: 06/03/2024 4:33 PM) Result Value WORKSTATION ID [id number] Impression Cardiomegaly. Biventricular ICD leads in place. Thank you for letting us participate in the care of this patient. If you are a health care provider and have any questions regarding this report, please contact the number below. For patients who have questions please contact the health rn progressive care unit that requested your imaging first. Electronically signed by: Stuart Aponte MD, [facility] ([phone]), at 06/03/2024 4:47 PM TTE: Limited echo performed by fellow conditioner tumbler operator to assess LV function. Left ventricle [...] ischemic cardiomyopathy with HFrEF (~30% EF), prior MN with stents, DM type 2, HTN, HLD, [...] Dain Colón MD (PGY-1) Cardiology, M1-S2, Pager #[phone] 06/07/24 Associated attestation - Melida Valdes MD [...] a lytic and brought directly to the Migratory Worker. Cardiac catheterization demonstrated multivessel disease with severe [...] for further guidance. Melida Valdes MD Staff Campaign Consultant * Dain Colón MD - 06/06/2024 7:17 AM EST Images from the original note were not included. . Cardiology Progress Note Patient info: Name: George Mehta : 1955 PCP: Mauro Berumen MD PCP phone number: [phone] Date of Admission: 06/02/2024 ( Hospital Day 4 days ) Attending:Melida Valdes MD ID: 69 y.o. male with a h/o DM type 2, HTN, HLD, current smoker (2-3 cigarettes/day), HFrEF with anICD for low EF (~30%), and CAD with prior MN x3 with JENNA placed in [place], Melanoma, PAD, presented to [facility] with 1 hour of retrosternal CP (05/13) while watching TV, found to have STEMI. Active Problems: Active Hospital Problems Diagnosis STEMI (ST elevation myocardial infarction) Acute on chronic heart failure with reduced ejection fraction (HFrEF, <= 40%) Coronary artery disease involving andreafski coronary artery of andreafski heart without angina pectoris Type 2 diabetes [...] in the last 7068 hours. Invalid input(s): [id number] Recent Labs 06/06/24 0653 06/05/24 2231 06/05/24 1622 06/05/24 1134 06/05/24 0727 06/04/24 1943 06/04/24 1526 06/04/24 1109 06/04/24 0711 06/03/24 2005 06/03/24 1748 06/03/24 1114 POCGLU 187 238* 205* 211* 166 175 154 188 182 136 191 166 Heme No results for input(s): LDH, HAPTOGLOBIN, URICACID in the last 168 hours. ABG (Arterial Blood Gas) No results found for: PHART, PO2ART, USF7FKU, GOR4IBZ Microbiology: Microbiology Results (Last 30 days) No results found for the last 720 hours. Imaging: Results for orders placed or performed during the hospital encounter of 06/02/24 XR Chest One View (Exam End: 06/03/2024 2:41 AM) Result Value WORKSTATION ID [id number] Impression No radiographically evident acute cardiopulmonary process. Thank you for letting us participate in the care of this patient. If you are a health care provider and have any questions regarding this report, please contact the number below. For patients who have questions please contact the health rn progressive care unit that requested your imaging first. Electronically signed by: Corazon Mauro MD, [facility] ([phone]), at 06/03/2024 3:[address] Chest wo Contrast (Generic) (Exam End: 06/03/2024 4:33 PM) Result Value WORKSTATION ID [id number] Impression Cardiomegaly. Biventricular ICD leads in place. Thank you for letting us participate in the care of this patient. If you are a health care provider and have any questions regarding this report, please contact the number below. For patients who have questions please contact the health rn progressive care unit that requested your imaging first. : Limited echo performed by fellow conditioner tumbler operator to assess LV function. Left ventricle [...] ischemic cardiomyopathy with HFrEF (~30% EF), prior MN with stents, DM type 2, HTN, HLD, [...] Dain Colón MD (PGY-1) Cardiology, M1-S2, Pager #[phone] 06/06/24 Associated attestation - Melida Valdes MD [...] a lytic and brought directly to the Migratory Worker. Cardiac catheterization demonstrated multivessel disease with severe [...] management. Help appreciated Melida Valdes MD Staff Campaign Consultant * Frederick Dunn MD - 06/05/2024 8:13 AM EDT Images from the original note were not included. . Cardiology Progress Note Patient info: Name: George Mehta : 1955 PCP: Mauro Berumen MD PCP phone number: [phone] Date of Admission: 06/02/2024 ( Hospital Day 3 days ) Attending:Melida Valdes MD ID: 69 y.o. male with a h/o DM type 2, HTN, HLD, current smoker (2-3 cigarettes/day), HFrEF with anICD for low EF (~30%), and CAD with prior MN x3 with JENNA placed in [place], Melanoma, PAD, presented to [facility] with 1 hour of retrosternal [...] in the last 7068 hours. Invalid input(s): [id number] Recent Labs 06/05/24 1134 06/05/24 0727 06/04/24 1943 06/04/24 1526 06/04/24 1109 06/04/24 0711 06/03/24 2005 06/03/24 1748 06/03/24 1114 06/03/24 0754 06/02/24 2331 POCGLU 211* 166 175 154 188 182 136 191 166 195 156 Heme No results for input(s): LDH, HAPTOGLOBIN, URICACID in the last 168 hours. ABG (Arterial Blood Gas) No results found for: PHART, PO2ART, ZQH3MKE, ZPZ4JDD Microbiology: Microbiology Results (Last 30 days) No results found for the last 720 hours. Imaging: Results for orders placed or performed during the hospital encounter of 06/02/24 XR Chest One View (Exam End: 06/03/2024 2:41 AM) Result Value WORKSTATION ID [id number] Impression No radiographically evident acute cardiopulmonary process. Thank you for letting us participate in the care of this patient. If you are a health care provider and have any questions regarding this report, please contact the number below. For patients who have questions please contact the health rn progressive care unit that requested your imaging first. Electronically signed by: Corazon Mauro MD, [facility] ([phone]), at 06/03/2024 3:[address] Chest wo Contrast (Generic) (Exam End: 06/03/2024 4:33 PM) Result Value WORKSTATION ID [id number] Impression Cardiomegaly. Biventricular ICD leads in place. Thank you for letting us participate in the care of this patient. If you are a health care provider and have any questions regarding this report, please contact the number below. For patients who have questions please contact the health rn progressive care unit that requested your imaging first. Electronically signed by: Stuart Aponte MD, [facility] ([phone]), at 06/03/2024 4:47 PM TTE: Limited echo performed by fellow conditioner tumbler operator to assess LV function. Left ventricle [...] ischemic cardiomyopathy with HFrEF (~30% EF), prior MN with stents, DM type 2, HTN, HLD, [...] all the information they need regarding the EVENT PLANNING MANAGER-D.Plan for MRI tomorrow. Starting 40 mg IV [...] a lytic and brought directly to the Migratory Worker. Cardiac catheterization demonstrated multivessel disease with severe [...] maintenance of 40. Melida Valdes MD Staff Campaign Consultant * Migel Javier RN - 06/05/2024 6:21 AM EDT Implanted device record scanned into: Chart Review-->Media-->External Cardiology-->03/25/2024. Medtronic Amplia MRI Quad CRTD [id number] Serial #: [id number] DDD mode A + Bi/V Rates 50-130 Migel Javier RN * Dain Colón MD - 06/04/2024 11:16 AM EDT Implant Records Requested Type: EVENT PLANNING MANAGER-D Rotary Engraver: [employer]tronic Product: [id number] Amplia MRI MRI compatibility: Compatible for 1.5-3 T Model #: [id number] Placed at: [place], [place] Records requested for MRI: 1. Operative report 2. Implant log I requested that these records be sent to our MRI department, Dain Colón MD 06/04/24 11:58 AM * Dain Colón MD - 06/04/2024 6:57 AM EDT Images from the original note were not included. . Cardiology Progress Note Patient info: Name: George Mehta : 1955 PCP: Mauro Berumen MD PCP phone number: [phone] Date of Admission: 06/02/2024 ( Hospital Day 2 days ) Attending:Delroy Fofana MD ID: 69 y.o. male with a h/o DM type 2, HTN, HLD, current smoker (2-3 cigarettes/day), HFrEF with anICD for low EF (~30%), and CAD with prior MN x3 with JENNA placed in [place], Melanoma, PAD, presented to [facility] with 1 hour of retrosternal [...] in the last 7068 hours. Invalid input(s): [id number] Recent Labs 06/03/24 2005 06/03/24 1748 06/03/24 1114 06/03/24 0754 06/02/24 2331 POCGLU 136 191 166 195 156 Heme No results for input(s): LDH, HAPTOGLOBIN, URICACID in the last 168 hours. ABG (Arterial Blood Gas) No results found for: PHART, PO2ART, SVZ2EHL, DNN7MEN Microbiology: Microbiology Results (Last 30 days) No results found for the last 720 hours. Imaging: Results for orders placed or performed during the hospital encounter of 06/02/24 XR Chest One View (Exam End: 06/03/2024 2:41 AM) Result Value WORKSTATION ID [id number] Impression No radiographically evident acute cardiopulmonary process. Thank you for letting us participate in the care of this patient. If you are a health care provider and have any questions regarding this report, please contact the number below. For patients who have questions please contact the health rn progressive care unit that requested your imaging first. Electronically signed by: Corazon Mauro MD, [facility] ([phone]), at 06/03/2024 3:[address] Chest wo Contrast (Generic) (Exam End: 06/03/2024 4:33 PM) Result Value WORKSTATION ID [id number] Impression Cardiomegaly. Biventricular ICD leads in place. Thank you for letting us participate in the care of this patient. If you are a health care provider and have any questions regarding this report, please contact the number below. For patients who have questions please contact the health rn progressive care unit that requested your imaging first. Electronically signed by: Stuart Aponte MD, [facility] ([phone]), at 06/03/2024 4:47 PM TTE: Limited echo performed by fellow conditioner tumbler operator to assess LV function. Left ventricle [...] ischemic cardiomyopathy with HFrEF (~30% EF), prior MN with stents, DM type 2, HTN, HLD, [...] -Lasix 40 mg IV given in the catheterization laboratory technician; assess diuretic response, consider re-dosing [...] a lytic and brought directly to the Migratory Worker. Cardiac catheterization demonstrated multivessel disease with severe [...] Friday -Diuresis with Jovanni Valdes MD Staff Campaign Consultant * Fatmata Mcallister, PT - 06/03/2024 3:29 [...] vs PCI) Fatmata Mcallister PT, MSPT Pager [phone] Inpatient Physical Therapy * Marlin Gómez MD [...] Marlin Gómez MD Cardiology S2, Pager # [phone] 06/03/2024 * Delroy Fofana MD - 06/03/2024 7:16 AM EDT Images from the original note were not included. . Cardiology Progress Note Patient info: Name: George Mehta : 1955 PCP: Mauro Berumen MD PCP phone number: [phone] Date of Admission: 06/02/2024 ( Hospital Day 1 day ) Attending:Nuha Rojo MD ID: 69 y.o. male with a h/o DM type 2, HTN, HLD, current smoker (2-3 cigarettes/day), HFrEF with anICD for low EF (~30%), and CAD with prior MN x3 with JENNA placed in [place], Melanoma, PAD, presented to [facility] with 1 hour of retrosternal [...] in the last 7068 hours. Invalid input(s): [id number] Recent Labs 06/02/24 2331 POCGLU 156 Heme No results for input(s): LDH, HAPTOGLOBIN, URICACID in the last 168 hours. ABG (Arterial Blood Gas) No results found for: PHART, PO2ART, STB6ZBI, JVB6CSE Microbiology: Microbiology Results (Last 30 days) No results found for the last 720 hours. Imaging: Results for orders placed or performed during the hospital encounter of 06/02/24 XR Chest One View (Exam End: 06/03/2024 2:41 AM) Result Value WORKSTATION ID [id number] Impression No radiographically evident acute cardiopulmonary process. Thank you for letting us participate in the care of this patient. If you are a health care provider and have any questions regarding this report, please contact the number below. For patients who have questions please contact the health rn progressive care unit that requested your imaging first. Electronically signed by: Corazon Mauro MD, [facility] ([phone]), at 06/03/2024 3:06 AM TTE: Limited echo performed by fellow conditioner tumbler operator to assess LV function. Left ventricle [...] ischemic cardiomyopathy with HFrEF (~30% EF), prior MN with stents, DM type 2, HTN, HLD, [...] -Lasix 40 mg IV given in the catheterization laboratory technician; assess diuretic response, consider re-dosing [...] @YESSI@ Dain Colón MD (PGY-1) Cardiology M1-S2, #[id number] 06/03/2024, 7:16 AM Cardiology Staff - Progress Note Addendum This patient was seen and examined on morning rounds with the S2 inpatient team. I agree with the findings and plan of care per Dain Colón MD (medical radiation therapist). Please refer to his note above for details. Very pleasant 69 year old male but he is obese, diabetic, and he is a SMOKER with known prior CAD and moderately reduced LVEF (30%). He has a pacer. History of surgical resection of melanoma on his head. The patient was transferred overnight to [facility] as a STEMI. He was treated initially with a lytic (TNK) and brought directly to the catheterization laboratory technician. The cath demonstrated 3VD with [...] - 06/13/2024 10:58 AM EST ICU Blue (#1026) H&P Patient info: Name: George Mehta : 1955 PCP: Mauro Berumen MD PCP phone number: [phone] Date of Admission: 06/02/2024 ( Hospital Day 11 days ) Attending:Haja Byrnes MD ID: George Mehta is a 69 y.o. male with a h/o DM type 2, HTN, HLD, current smoker (2-3 cigarettes/day), HFrEF with an ICD for low EF (~30%), and CAD with prior MN x3 with JENNA placed in [place], Melanoma, PAD, presented to [facility] with 1 hour of retrosternal CP (05/13) while watching TV, foundto have STEMI. HPI: Shahnaz Scanlon H&P 06/02 69 y.o. male with a h/o DM type 2, HTN, HLD, current smoker (2-3 cigarettes/day), HFrEF with an ICD for low EF (~30%), and CAD with prior MN x3 with JENNA placed in [place], Melanoma, PAD, presented to [facility] with 1 hour of retrosternal CP (05/13) while watching TV. CP was non-radiating, not asso ciated with diaphoresis, nausea, or SOB. Denies orthopnea, MARTÍNEZ, palpitations, or LE edema. ECG showed findings consistent with anterior STEMI. He received TNK and was transferred for PCI. Coronary angiography showed a small, non-dominant RCA with kudl-kg-tdrxdisi disease and a dominant,heavily calcified left system with prior stents in the LAD and OM. The LM bifurcates into the LAD and LCX, both heavily calcified. The proximal LCX has a 75% calcified, aneurysmal lesion, and an 80% calcified lesion distally before a large OM2. OM1 is a FUSING LINE INSPECTOR with in-stent restenosis, filling retrograde via collaterals. [...] 40 mg Lasix was administered in the catheterization laboratory technician. Cardiac surgery was consulted and [...] Blood Gas) No results for input(s): PHART, SKR4OEV, PO2ART, LQC8XGU, LACTATEVEN, NOG4JBM, PFRATIOART2 in the last 168 hours. VBG (Venous Blood Gas) Recent Labs 06/10/24 1742 PHVEN 7.34 PO2VEN 24 LVE1AEV 27.4 Mixed Venous Sat No results for input(s): A6YITZ0 in the last 168 hours. Intake/Output Summary [...] in the last 7068 hours. Invalid input(s): EIDWPRWOVIX1N Recent Labs 06/13/24 0741 06/13/24 0325 06/12/24 2353 06/12/24 1932 06/12/24 1541 06/12/24 1121 06/12/24 0800 06/12/24 0425 06/11/24 2356 06/11/24 2025 06/11/24 1624 06/11/24 1108 POCGLU 126 99 141 158 113 207* 169 132 135 210* 81 233* Heme No results for input(s): LDH, HAPTOGLOBIN, URICACID in the last 168 hours. ABG (Arterial Blood Gas) No results for input(s): PHART, OOB1PEZ, PO2ART, WPR7HGM, LACTATEVEN, XRT5TMB, PFRATIOART2 in the last 168 hours. VBG (Venous Blood Gas) Recent Labs 06/10/24 1742 PHVEN 7.34 PO2VEN 24 ELT6AQO 27.4 Mixed Venous Sat No results for input(s): H7YOUD1 in the last 168 hours. Microbiology: Microbiology Results (Last 30 days) No results found for the last 720 hours. Assessment & Plan: George Mehta is a 69 y.o. male with CAD, ischemic cardiomyopathy with HFrEF (~30% EF), prior MN with stents, DM type 2, HTN, HLD, [...] Plan for CABG 06/14. Patient NPO at [place]. #ASCVD / STEMI: -Holding Plavix; continue ASA [...] (Give Meds) Daily Healthy Menu Choices/Cardiac diet ([facility]-Diet) DVT Prophylaxis: SCD GI Prophylaxis: None Dispo: [...] TUD (abstinent since admission), ASCVD with multipleprior MN and PCIs, ICM/HFrEF LVEF 30% (all territories [...] is in the chart Rebeca Prado MD Slp Teacher PGY6 [id number] * Shahnaz Scanlon MD - [...] low EF (~30%), and CAD with prior MN x3 with JENNA placed in [place], Melanoma, PAD, presented to [facility] with 1 hour of retrosternal CP (10/10) while watching TV. CP was non-radiating, not assoc iated with diaphoresis, nausea, or SOB. Denies orthopnea, MARTÍNEZ, palpitations, or LE edema. ECG showed findings consistent with anterior STEMI. He received TNK and was transferred for PCI. Coronary angiography showed a small, non-dominant RCA with dvac-ys-qcpuknva disease and a dominant,heavily calcified left system with prior stents in the LAD and OM. The LM bifurcates into the LAD and LCX, both heavily calcified. The proximal LCX has a 75% calcified, aneurysmal lesion, and an 80% calcified lesion distally before a large OM2. OM1 is a FUSING LINE INSPECTOR with in-stent restenosis, filling retrograde via collaterals. [...] 40 mg Lasix was administered in the catheterization laboratory technician. Past Medical History: As per [...] normal. Behavior: Behavior normal. Diagnostics: [facility] 06/02/2024 Coronary angiography revealed small non [...] ischemic cardiomyopathy with HFrEF (~30% EF), prior MN with stents, DM type 2, HTN, HLD, [...] -Lasix 40 mg IV given in the catheterization laboratory technician; assess diuretic response. -Continue carvedilol; [...] Notes * Care Management Discharge - Vargas Delong, RN - 06/21/2024 9:36 AM EST [...] & Follow-up Care: Contact information for follow-up [facility] [address] [facility] [address] Cardiac Rehab, [address] [address] JAMIE GRAMAJO confirmed with [facility] that they [...] MEDICARE Payor: AAR MANAGED MEDICARE / Plan: [facility] MANAGED MEDICARE COMPLETE / Product Type: *No [...] Roberts RN - 06/18/2024 10:50 AM EST [facility] CARDIAC REHABILITATION George Mehta was seen today regarding participation in the outpatient Phase 2 Cardiac Rehabilitation at [facility]. The patient agrees to a [...] Agency/Support Group Needs: Homecare agency Agency Choices: [facility]: Medication checks, Registered Nurse, Physical Therapy Agency Referrals: pending clinical course and PT/OT recs [facility] Agency [facility] [address] [place] [address] PHONE: [phone] FAX: [phone] Transportation: family or friend will provide Barriers [...] MANAGED MEDICARE / Plan: AARP [facility] MANAGED MEDICARE COMPLETE / Product Type: *No Product type* / Secondary Insurance: N/A Plan for discharge is: Home w/ Services Outpatient Agency/Support Group Needs: Homecare agency Agency Choices: [facility]: Medication checks, Registered Nurse, Physical Therapy Agency Referrals: pending clinical course and PT/OT recs [facility] [address] [place] [address] PHONE: [phone] FAX: [phone] Transportation: family or friend will provide Barriers [...] Loja MD - 06/14/2024 8:48 AM EST [facility] Operative Note Patient Name: George Mehta : [id number] MR#: [id number] Case Date: 06/14/2024 Surgeon: Surgeons and Role: * Bobby Loja MD - Primary * Rashi Bass PA - Physician Cigar Packer Preoperative diagnosis: CAD, MARIALUISA flickering mass on [...] [place] SUR[facility]ICAL PATHOLOG[facility] Bobby Loja MD 06/14/2024 0957 3 : Tissue Heart, Atrial Appendage, Left [...] procedures today and tomorrow. Report called to [facility] - all belongings with patient. 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 INDIVIDUALIZED FALL [...] MEDICARE Payor: AAR MANAGED MEDICARE / Plan: [facility] MANAGED MEDICARE COMPLETE / Product Type: *No Product type* / Secondary Insurance: N/A Plan for discharge is: Home w/ Services Outpatient Agency/Support Group Needs: Homecare agency, Agency Choices: [facility] Home Health Services: Medication checks, Registered Nurse, Physical Therapy Agency Referrals: [facility] [place] [id number] RN / PT Routed 06/10 Transportation: family [...] with home health services when medically ready. shoe reconditioner/Plastic Surgery Assistant will continue to follow patient???s progress and remain available if situation changes for coordination of care, psychosocial support and/or discharge planning. Anticipated Date of Discharge: 06/18/2024 Mariia Montero RN CM Extension [phone] * Plan of Care - Migel Javier [...] No Patient is insured through: Primary Insurance: [employer] MANAGED MEDICARE Payor: AARP MANAGED MEDICARE / Plan: [employer] MANAGED MEDICARE COMPLETE / Product Type: *No [...] consult for high risk PCI vs CABG shoe reconditioner/Plastic Surgery Assistant will continue to follow patient???s progress and remain available if situation changes for coordination of care, psychosocial support and/or discharge planning. Anticipated Date of Discharge: 06/11/2024 Mariia Montero RN Extension [phone] * Plan of Care - Becca Hope [...] Appropriate) * Consult Note - Alejandra Baumann, EMBOSSING PRESS OPERATOR MOLDED GOODS - 06/06/2024 12:24 PM EST Diabetes Management Team Inpatient Consult Date of Consultation: 06/06/2024 Consult Requested by:Cardiology S2 Reason for Consultation:69 y.o. male with CAD, ischemic cardiomyopathy with HFrEF (~30% EF), prior MN with stents, DM type 2, HTN, HLD, [...] CABG and to provide a review of remote computer terminal operator diabetes care. Diabetes History: [...] Breakfast- varies - eggs with khoury or welsh muffin Lunch- turkey sandwich Supper- meat and [...] Infusions: heparin (porcine) infusion 1,400 Units/hr (06/06/24 4315) PRN: insulin lispro, potassium chloride ER OR [...] ischemic cardiomyopathy with HFrEF (~30% EF), prior MN with stents, DM type 2, HTN, HLD, [...] Baumann APRN Endocrinology Diabetes Management Service Pager: [phone] Weekends please page [phone] 80 minute visit was spent in counseling [...] y.o. male with a PMHx of previous MN s/p PCI x3, ICM/HFrEF (LVEF 30%) s/p ICD, DMII, HTN, HLD, remote melanoma, and smoker who presented to [facility] last night via EMS after developing acute, severe chest pain while watching TV. Patient was ruled in for STEMI, given TNK, ASA, plavix, heparin gtt, and sent to [facility] for coronary angiography. LHC demonstrated severely calcified left coronary system with notable LCx 75/80% lesions and FUSING LINE INSPECTOR OM1 with ISR with collateral retrograde filling, [...] elevation myocardial infarction) Past Medical History: previous MN s/p PCI x3 ICM/HFrEF (LVEF 30%) s/p [...] is large. OM1 appears to be a FUSING LINE INSPECTOR, with in stentrestenosis and fills retrograde via [...] admitted with STEMI s/p TNK, [facility] showing multivessel CAD including ISR, no [...] to our service. Signed: Paula Treviño PA-C [facility] Section of Cardiac Surgery Date: [...] surrogate would be surrogate decision maker per [place] surrogate decision making law. (Only good for 180 days) Any patient receiving care in [place] must abide by [place] law. The hierarchy for surrogate decision making [...] (i) The agent with financial power of insurance defense attorney or a conservator appointed in [...] in the bathroom) Home Address confirmed as: [address] [place] [address] [address] [facility] [address] Social & Family Supports: All names listed [...] Pertinent/Service Specific Information: Health/Prescription Coverage: Primary Insurance: [facility] MANAGED MEDICARE Payor: [facility] MANAGED MEDICARE / Plan: [facility] MANAGED MEDICARE COMPLETE / Product Type: *No Product type* / Secondary Insurance: N/A ; Prescription Coverage: Yes Preferred Pharmacy: [id number] - [place], [place] - [address] [place] [address] [place] [id number] [place] Status: Patient is a : No Primary Care Provider confirmed: Mauro Berumen MD [phone] Patient/Caregiver Goals of Treatment: Potential Needs for [...] care as indicated. [facility], ext. [phone] * Brief Op Note - Angeles Gaxiola PA - 06/03/2024 12:23 AM EDT Preliminary Cardiac Catheterization Procedure Note: Patient Name: George Mehta : [id number] MR#: [id number] Case Date: 06/02/2024 - 06/03/2024 Paving Foreman: Surgeons and Role: * Nuha Shen MD - Primary * Angeles Gaxiola PA - Physician Cigar Packer Preoperative diagnosis: STEMI Postoperative diagnosis: * STEMI * Procedure(s) performed: RRA access [facility] Coronary angiogram IVUS LM/LAD/LCX Access: 6 Fr RRA A time-out was conducted prior to the start of the procedure to verify the correct patient and procedure, procedure location, and all relevant critical information. Preliminary findings: 69 year old current smoker (1-2 cigarette's per day), DM type 2, hypertension, dyslipidemia, ICD for HFrEF/low EF (~30%), CAD with prior MN and 3 stents historically (in [place]) who presented to [facility] with 1 hour of rest [...] is large. OM1 appears to be a FUSING LINE INSPECTOR, with in stentrestenosis and fills retrograde via [...] receive 40 mg of lasix in the catheterization laboratory technician. 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 Blood CAPILLARY BLOOD / Unknown 06/21/2024 3:51 AM EST 06/21/2024 3:51 AM EST Bobby Loja MD POINT OF CARE TEST O RDERABLES [facility] [place] [address] * (ABNORMAL) Basic Metabolic Panel (06/21/2024 2:09 AM EST) Pathologist [facility] Glucose 169 65 - 199 mg/dL 06/21/2024 3:10 AM [facility] Comment:Glucose Concentratio n >=200 mg/dL plus symptoms is consistent with Diabetes Mellitus. Blood Urea Nitrogen 27(H) 10 - 20 mg/dL 06/21/2024 3:10 AM [facility] Creatinine 1.24 0.80 - 1.50 mg/dL 06/21/2024 3:10 AM [facility] Sodium 138 135 - 145 mMol/L 06/21/2024 3:10 AM [facility] Potassium 4.2 3.5 - 5.0 mMol/L 06/21/2024 3:10 AM [facility] Chloride 100 98 - 107 mMol/L 06/21/2024 3:10 AM [facility] Carbon Dioxide 27 22 - 31 mMol/L 06/21/2024 3:10 AM [facility] Anion Gap 11 5 - 15 mMol/L 06/21/2024 3:10 AM [facility] Calcium 8.7 8.5 - 10.5 mg/dL 06/21/2024 3:10 AM [facility] Est Glomerular Filtration Rate - Male 64 mL/min/1. 73 m?? 06/21/2024 3:10 AM [facility] Comment: This patient's estimated [...] APRN CHEMISTRY ORDERABL ES Performing Organization Address [facility] Co de Phone Number [facility] [place] [address] * POC, GLUCOSE (06/21/2024 12:04 AM EST) Glucometer, POC 157 65 - 199 mg/dL 06/21/2024 12:04 AM EST [facility] Comment:Supplemental ranges: <140 mg/dL before meals <180 mg/dL all other times of the day. Blood CAPILLARY BLOOD / Unknown 06/21/2024 12:04 AM EST 06/21/2024 12:04 AM EST Bobby Loja MD POINT OF CARE TEST O NIKA Performing Organization Address [facility] Co de Phone Number [facility] [place] [address] * POC, GLUCOSE (06/20/2024 11:14 PM EST) Glucometer, POC 67 65 - 199 mg/dL 06/20/2024 11:14 PM EST [facility] Comment:Supplemental ranges: <140 mg/dL before meals <180 mg/dL all other times of the day. Blood CAPILLARY BLOOD / Unknown 06/20/2024 11:14 PM EST 06/20/2024 11:14 PM EST Bobby Loja MD POINT OF CARE TEST O NIKA Performing Organization Address City/[facility]/ZIP Co de Phone Number [facility] [place] [address] * POC, GLUCOSE (06/20/2024 7:16 PM EST) Glucometer, POC 132 65 - 199 mg/dL 06/20/2024 7:16 PM EST [facility] Comment:Supplemental ranges: <140 mg/dL before meals <180 mg/dL all other times of the day. Blood CAPILLARY BLOOD / Unknown 06/20/2024 7:16 PM EST 06/20/2024 7:16 PM EST Bobby Loja MD POINT OF CARE TEST O RDBECKIE Performing Organization Address City/[facility]/ZIP Co de Phone Number [facility] [place] [address] * POC, GLUCOSE (06/20/2024 3:39 PM EST) Glucometer, POC 124 65 - 199 mg/dL 06/20/2024 3:40 PM EST [facility] Comment:Supplemental ranges: <140 mg/dL before meals <180 mg/dL all other times of the day. Blood CAPILLARY BLOOD / Unknown 06/20/2024 3:39 PM EST 06/20/2024 3:40 PM EST Bobby Loja MD POINT OF CARE TEST O NIKA Performing Organization Address [facility] Co de Phone Number [facility] [place] [address] * POC, GLUCOSE (06/20/2024 12:02 PM EST) Glucometer, POC 173 65 - 199 mg/dL 06/20/2024 12:03 PM EST [facility] Comment:Supplemental ranges: <140 mg/dL before meals <180 mg/dL all other times of the day. Blood CAPILLARY BLOOD / Unknown 06/20/2024 12:02 PM EST 06/20/2024 12:03 PM EST Bobby Loja MD POINT OF CARE TEST O NIKA Performing Organization Address City/[facility]/ZIP Co de Phone Number [facility] [place] [address] * POC, GLUCOSE (06/20/2024 7:10 AM EST) Glucometer, POC 130 65 - 199 mg/dL 06/20/2024 7:11 AM EST [facility] Comment:Supplemental ranges: <140 mg/dL before meals <180 mg/dL all other times of the day. Blood CAPILLARY BLOOD / Unknown 06/20/2024 7:10 AM EST 06/20/2024 7:11 AM EST Bobby Loja MD POINT OF CARE TEST O RDERABLES [facility] [place] [address] * (ABNORMAL) Basic Metabolic Panel (06/20/2024 2:28 AM EST) Glucose 79 65 - 199 mg/dL 06/20/2024 3:06 AM [facility] Comment:Glucose Concentratio n >=200 mg/dL plus symptoms is consistent with Diabetes Mellitus. Blood Urea Nitrogen 38(H) 10 - 20 mg/dL 06/20/2024 3:06 AM [facility] Creatinine 1.39 0.80 - 1.50 mg/dL 06/20/2024 3:06 AM [facility] Sodium 137 135 - 145 mMol/L 06/20/2024 3:06 AM [facility] Potassium 3.6 3.5 - 5.0 mMol/L 06/20/2024 3:06 AM [facility] Chloride 100 98 - 107 mMol/L 06/20/2024 3:06 AM [facility] Carbon Dioxide 29 22 - 31 mMol/L 06/20/2024 3:06 AM [facility] Anion Gap 8 5 - 15 mMol/L 06/20/2024 3:06 AM [facility] Calcium 8.4(L) 8.5 - 10.5 mg/dL 06/20/2024 3:06 AM [facility] Est Glomerular Filtration Rate - Male 56 mL/min/1. 73 m?? 06/20/2024 3:06 AM [facility] Comment: This patient's estimated [...] APRN CHEMISTRY ORDERABL ES Performing Organization Address City/[facility]/ZIP Co de Phone Number [facility] [place] [address] * POC, GLUCOSE (06/20/2024 12:32 AM EST) Glucometer, POC 86 65 - 199 mg/dL 06/20/2024 12:32 AM EST [facility] Comment:Supplemental ranges: <140 mg/dL before meals <180 mg/dL all other times of the day. Blood CAPILLARY BLOOD / Unknown 06/20/2024 12:32 AM EST 06/20/2024 12:32 AM EST Bobby Loja MD POINT OF CARE TEST O NIKA Performing Organization Address City/[facility]/ZIP Co de Phone Number [facility] [place] [address] * (ABNORMAL) POC, GLUCOSE (06/20/2024 12:02 AM EST) Glucometer, POC 59(L) 65 - 199 mg/dL 06/20/2024 12:02 AM EST [facility] Comment:Supplemental ranges: <140 mg/dL before meals <180 mg/dL all other times of the day. Blood CAPILLARY BLOOD / Unknown 06/20/2024 12:02 AM EST 06/20/2024 12:03 AM EST Bobby Loja MD POINT OF CARE TEST O RDERABLES Performing Organization Address [facility] Co de Phone Number [facility] [place] [address] * POC, GLUCOSE (06/19/2024 8:15 PM EST) Glucometer, POC 131 65 - 199 mg/dL 06/19/2024 8:15 PM EST [facility] Comment:Supplemental ranges: <140 mg/dL before meals <180 mg/dL all other times of the day. Blood CAPILLARY BLOOD / Unknown 06/19/2024 8:15 PM EST 06/19/2024 8:15 PM EST Bobby Loja MD POINT OF CARE TEST O NIKA Performing Organization Address [facility] Co de Phone Number [facility] [place] [address] * POC, GLUCOSE (06/19/2024 6:01 PM EST) Glucometer, POC 129 65 - 199 mg/dL 06/19/2024 6:01 PM EST [facility] Comment:Supplemental ranges: <140 mg/dL before meals <180 mg/dL all other times of the day. Blood CAPILLARY BLOOD / Unknown 06/19/2024 6:01 PM EST 06/19/2024 6:02 PM EST Bobby Loja MD POINT OF CARE TEST O RDERAPIETER Performing Organization Address City/[facility] Co de Phone Number [facility] [place] [address] * POC, GLUCOSE (06/19/2024 4:51 PM EST) Glucometer, POC 155 65 - 199 mg/dL 06/19/2024 4:51 PM EST [facility] Comment:Supplemental ranges: <140 mg/dL before meals <180 mg/dL all other times of the day. Blood CAPILLARY BLOOD / Unknown 06/19/2024 4:51 PM EST 06/19/2024 4:51 PM EST Bobby Loja MD POINT OF CARE TEST O RDERAPIETER Performing Organization Address City/[facility] Co de Phone Number [facility] [place] [address] * POC, GLUCOSE (06/19/2024 12:37 PM EST) Glucometer, POC 136 65 - 199 mg/dL 06/19/2024 12:37 PM EST [facility] Comment:Supplemental ranges: <140 mg/dL before meals <180 mg/dL all other times of the day. Blood CAPILLARY BLOOD / Unknown 06/19/2024 12:37 PM EST 06/19/2024 12:37 PM EST Bobby Loja MD POINT OF CARE TEST O NIKA Performing Organization Address [facility] Co de Phone Number [facility] [place] [address] * POC, GLUCOSE (06/19/2024 11:20 AM EST) Glucometer, POC 185 65 - 199 mg/dL 06/19/2024 11:21 AM EST [facility] Comment:Supplemental ranges: <140 mg/dL before meals <180 mg/dL all other times of the day. Blood CAPILLARY BLOOD / Unknown 06/19/2024 11:20 AM EST 06/19/2024 11:21 AM EST Bobby Loja MD POINT OF CARE TEST O RALPHERAPIETER Performing Organization Address City/[facility]/ZIP Co de Phone Number [facility] [place] [address] * POC, GLUCOSE (06/19/2024 7:21 AM EST) Glucometer, POC 125 65 - 199 mg/dL 06/19/2024 7:21 AM EST [facility] Comment:Supplemental ranges: <140 mg/dL before meals <180 mg/dL all other times of the day. Blood CAPILLARY BLOOD / Unknown 06/19/2024 7:21 AM EST 06/19/2024 7:22 AM EST Bobby Loja MD POINT OF CARE TEST O NIKA Performing Organization Address [facility] Co de Phone Number [facility] [place] [address] * POC, GLUCOSE (06/19/2024 4:52 AM EST) Glucometer, POC 125 65 - 199 mg/dL 06/19/2024 4:52 AM EST [facility] Comment:Supplemental ranges: <140 mg/dL before meals <180 mg/dL all other times of the day. Blood CAPILLARY BLOOD / Unknown 06/19/2024 4:52 AM EST 06/19/2024 4:52 AM EST Bobby Loja MD POINT OF CARE TEST O NIKA Performing Organization Address [facility] Co de Phone Number [facility] [place] [address] * POC, GLUCOSE (06/19/2024 4:13 AM EST) Glucometer, POC 67 65 - 199 mg/dL 06/19/2024 4:13 AM EST [facility] Comment:Supplemental ranges: <140 mg/dL before meals <180 mg/dL all other times of the day. Blood CAPILLARY BLOOD / Unknown 06/19/2024 4:13 AM EST 06/19/2024 4:13 AM EST Narrative Authorizing Provider Result Saranya Ljoa MD POINT OF CARE TEST O NIKA Performing Organization Address [facility] Co de Phone Number [facility] [place] [address] * (ABNORMAL) POC, GLUCOSE (06/19/2024 3:48 AM EST) Glucometer, POC 51(LLL) 65 - 199 mg/dL 06/19/2024 3:48 AM [facility] Comment:Supplemental ranges: <140 mg/dL before meals <180 mg/dL all other times of the day. Blood CAPILLARY BLOOD / Unknown 06/19/2024 3:48 AM EST 06/19/2024 3:48 AM EST Bobby Loja MD POINT OF CARE TEST O RDERABLES [facility] [place] [address] * (ABNORMAL) Basic Metabolic Panel (06/19/2024 3:44 AM EST) Glucose 53(LLL) 65 - 199 mg/dL 06/19/2024 4:48 AM [facility] Comment:Glucose Concentratio n >=200 mg/dL plus symptoms is consistent with Diabetes Mellitus. Blood Urea Nitrogen 42(H) 10 - 20 mg/dL 06/19/2024 4:48 AM [facility] Creatinine 1.29 0.80 - 1.50 mg/dL 06/19/2024 4:48 AM [facility] Sodium 138 135 - 145 mMol/L 06/19/2024 4:48 AM [facility] Potassium 3.6 3.5 - 5.0 mMol/L 06/19/2024 4:48 AM [facility] Chloride 100 98 - 107 mMol/L 06/19/2024 4:48 AM [facility] Carbon Dioxide 29 22 - 31 mMol/L 06/19/2024 4:48 AM [facility] Anion Gap 9 5 - 15 mMol/L 06/19/2024 4:48 AM [facility] Calcium 8.8 8.5 - 10.5 mg/dL 06/19/2024 4:48 AM [facility] Est Glomerular Filtration Rate - Male 61 mL/min/1. 73 m?? 06/19/2024 4:48 AM [facility] Comment: This patient's estimated [...] APRN CHEMISTRY ORDERABL ES Performing Organization Address [facility] Co de Phone Number [facility] [place] [address] * POC, GLUCOSE (06/19/2024 12:23 AM EST) Glucometer, POC 82 65 - 199 mg/dL 06/19/2024 12:23 AM EST [facility] Comment:Supplemental ranges: <140 mg/dL before meals <180 mg/dL all other times of the day. Blood CAPILLARY BLOOD / Unknown 06/19/2024 12:23 AM EST 06/19/2024 12:23 AM EST Bobby Loja MD POINT OF CARE TEST O RDERABLES [facility] [place] [address] * POC, GLUCOSE (06/18/2024 11:08 PM EST) Glucometer, POC 73 65 - 199 mg/dL 06/18/2024 11:08 PM EST [facility] Comment:Supplemental ranges: <140 mg/dL before meals <180 mg/dL all other times of the day. Blood CAPILLARY BLOOD / Unknown 06/18/2024 11:08 PM EST 06/18/2024 11:08 PM EST Bobby Loja MD POINT OF CARE TEST O RDBECKIE Performing Organization Address [facility]/ZIP Co de Phone Number [facility] [place] [address] * POC, GLUCOSE (06/18/2024 7:32 PM EST) Glucometer, POC 167 65 - 199 mg/dL 06/18/2024 7:32 PM EST [facility] Comment:Supplemental ranges: <140 mg/dL before meals <180 mg/dL all other times of the day. Blood CAPILLARY BLOOD / Unknown 06/18/2024 7:32 PM EST 06/18/2024 7:32 PM EST Bobby Loja MD POINT OF CARE TEST O NIKA Performing Organization Address [facility] Co de Phone Number [facility] [place] [address] * POC, GLUCOSE (06/18/2024 6:08 PM EST) Glucometer, POC 140 65 - 199 mg/dL 06/18/2024 6:09 PM EST [facility] Comment:Supplemental ranges: <140 mg/dL before meals <180 mg/dL all other times of the day. Blood CAPILLARY BLOOD / Unknown 06/18/2024 6:08 PM EST 06/18/2024 6:09 PM EST Bobby Loja MD POINT OF CARE TEST O NIKA Performing Organization Address City/[facility]/ZIP Co de Phone Number [facility] [place] [address] * POC, GLUCOSE (06/18/2024 4:17 PM EST) Glucometer, POC 144 65 - 199 mg/dL 06/18/2024 4:17 PM EST [facility] Comment:Supplemental ranges: <140 mg/dL before meals <180 mg/dL all other times of the day. Blood CAPILLARY BLOOD / Unknown 06/18/2024 4:17 PM EST 06/18/2024 4:17 PM EST Narrative Authorizing Provider Result Saranya Loja MD POINT OF CARE TEST O NIKA Performing Organization Address [facility] Co de Phone Number [facility] [place] [address] * POC, GLUCOSE (06/18/2024 12:09 PM EST) Glucometer, POC 180 65 - 199 mg/dL 06/18/2024 12:09 PM EST [facility] Comment:Supplemental ranges: <140 mg/dL before meals <180 mg/dL all other times of the day. Blood CAPILLARY BLOOD / Unknown 06/18/2024 12:09 PM EST 06/18/2024 12:09 PM EST Narrative Authorizing Provider Result Saranya Loja MD POINT OF CARE TEST Abimael MAHER Performing Organization Address [facility] Co de Phone Number [facility] [place] [address] * POC, GLUCOSE (06/18/2024 7:49 AM EST) Glucometer, POC 125 65 - 199 mg/dL 06/18/2024 7:50 AM EST [facility] Comment:Supplemental ranges: <140 mg/dL before meals <180 mg/dL all other times of the day. Blood CAPILLARY BLOOD / Unknown 06/18/2024 7:49 AM EST 06/18/2024 7:50 AM EST Narrative Authorizing Provider Result Saranya Loja MD POINT OF CARE TEST Abimael MAHER Performing Organization Address [facility] Co de Phone Number [facility] [place] [address] * (ABNORMAL) Basic Metabolic Panel (06/18/2024 4:19 AM EST) Glucose 103 65 - 199 mg/dL 06/18/2024 5:03 AM EST [facility] Comment:Glucose Concentratio n >=200 mg/dL plus symptoms is consistent with Diabetes Mellitus. Blood Urea Nitrogen 43(H) 10 - 20 mg/dL 06/18/2024 5:03 AM [facility] Creatinine 1.45 0.80 - 1.50 mg/dL 06/18/2024 5:03 AM [facility] Sodium 131(L) 135 - 145 mMol/L 06/18/2024 5:03 AM [facility] Potassium 4.2 3.5 - 5.0 mMol/L 06/18/2024 5:03 AM [facility] Chloride 97(L) 98 - 107 mMol/L 06/18/2024 5:03 AM [facility] Carbon Dioxide 25 22 - 31 mMol/L 06/18/2024 5:03 AM [facility] Anion Gap 9 5 - 15 mMol/L 06/18/2024 5:03 AM [facility] Calcium 8.5 8.5 - 10.5 mg/dL 06/18/2024 5:03 AM [facility] Est Glomerular Filtration Rate - Male 53 mL/min/1. 73 m?? 06/18/2024 5:03 AM [facility] Comment: This patient's estimated [...] APRN CHEMISTRY ORDERABL ES Performing Organization Address City/[facility] Co de Phone Number [facility] [place] [address] * POC, GLUCOSE (06/18/2024 3:50 AM EST) Glucometer, POC 99 65 - 199 mg/dL 06/18/2024 3:51 AM EST [facility] Comment:Supplemental ranges: <140 mg/dL before meals <180 mg/dL all other times of the day. Blood CAPILLARY BLOOD / Unknown 06/18/2024 3:50 AM EST 06/18/2024 3:51 AM EST Bobby Loja MD POINT OF CARE TEST O NIKA Performing Organization Address [facility] Co de Phone Number [facility] [place] [address] * POC, GLUCOSE (06/17/2024 11:10 PM EST) Glucometer, POC 92 65 - 199 mg/dL 06/17/2024 11:10 PM EST [facility] Comment:Supplemental ranges: <140 mg/dL before meals <180 mg/dL all other times of the day. Blood CAPILLARY BLOOD / Unknown 06/17/2024 11:10 PM EST 06/17/2024 11:10 PM EST Bobby Loja MD POINT OF CARE TEST O NIKA Performing Organization Address [facility] Co de Phone Number [facility] [place] [address] * POC, GLUCOSE (06/17/2024 7:54 PM EST) Glucometer, POC 126 65 - 199 mg/dL 06/17/2024 7:54 PM EST [facility] Comment:Supplemental ranges: <140 mg/dL before meals <180 mg/dL all other times of the day. Blood CAPILLARY BLOOD / Unknown 06/17/2024 7:54 PM EST 06/17/2024 7:54 PM EST Bobby Loja MD POINT OF CARE TEST O RDERAPIETER Performing Organization Address [facility] de Phone Number [facility] [place] [address] * POC, GLUCOSE (06/17/2024 4:07 PM EST) Glucometer, POC 141 65 - 199 mg/dL 06/17/2024 4:12 PM EST [facility] Comment:Supplemental ranges: <140 mg/dL before meals <180 mg/dL all other times of the day. Blood CAPILLARY BLOOD / Unknown 06/17/2024 4:07 PM EST 06/17/2024 4:12 PM EST Bobby Loja MD POINT OF CARE TEST O RALPHERAPIETER Performing Organization Address [facility] de Phone Number [facility] [place] [address] * XR Chest PA & Lateral (Generic) (06/17/2024 1:46 PM EST) WORKSTATION ID [id number] DH RAD Anatomical Region Laterality Modality Chest [...] who have questions please contact the health rn progressive care unit that requested your imaging first. ? Electronically signed by: Josselyn Bebe, MD, [facility] ([phone]), at 06/17/2024 4:49 PM Narrative 06/17/2024 4:49 [...] patients who have questions please contactthe health rn progressive care unit that requested your imaging first. Electronically signed by: Josselyn Spence MD, [facility]([phone]), at 06/17/2024 4:49 PM Keila Hanley APRN IMG DX ORDERABLES * (ABNORMAL) POC, GLUCOSE (06/17/2024 11:04 AM EST) [facility] Glucometer, POC 245(H) 65 - 199 mg/dL 06/17/2024 11:04 AM EST [facility] Comment:Supplemental ranges: <140 mg/dL before meals <180 mg/dL all other times of the day. Blood CAPILLARY BLOOD / Unknown 06/17/2024 11:04 AM EST 06/17/2024 11:04 AM EST Bobby Loja MD POINT OF CARE TEST O NIKA Performing Organization Address City/[facility] Co de Phone Number [facility] [place] [address] * POC, GLUCOSE (06/17/2024 7:49 AM EST) Glucometer, POC 141 65 - 199 mg/dL 06/17/2024 7:55 AM EST [facility] Comment:Supplemental ranges: <140 mg/dL before meals <180 mg/dL all other times of the day. Blood CAPILLARY BLOOD / Unknown 06/17/2024 7:49 AM EST 06/17/2024 7:55 AM EST Bobby Loja MD POINT OF CARE TEST Abimael MAHER Performing Organization Address [facility] Co de Phone Number [facility] [place] [address] * POC, GLUCOSE (06/17/2024 4:16 AM EST) Glucometer, POC 139 65 - 199 mg/dL 06/17/2024 4:16 AM EST [facility] Comment:Supplemental ranges: <140 mg/dL before meals <180 mg/dL all other times of the day. Blood CAPILLARY BLOOD / Unknown 06/17/2024 4:16 AM EST 06/17/2024 4:17 AM EST Narrative Authorizing Provider Result Saranya Loja MD POINT OF CARE TEST O NIKA Performing Organization Address City/[facility] Co de Phone Number [facility] [place] [address] * Lactate, Whole Blood (06/17/2024 2:39 AM EST) Lactate, Whole Blood 1.3 0.5 - 2.2 mmol/L 06/17/2024 2:46 AM EST [facility] Blood VENOUS BLOOD SPECIMEN / Unknown Venipuncture / Unknown 06/17/2024 2:39 AM EST 06/17/2024 2:43 AM EST Bobby Loja MD CHEMISTRY ORDERABLES [facility] [place] [address] * (ABNORMAL) Hemogram (06/17/2024 2:39 AM EST) White Blood Cell 13.53(H) 4.00 - 9.50 x10(3)/mc L 06/17/2024 2:53 AM [facility] Red Blood Cell 3.55(L) 4.58 - 5.54 x10(6)/mc L 06/17/2024 2:53 AM [facility] Hemoglobin 10.8(L) 13.7 - 16.5 g/dL 06/17/2024 2:53 AM [facility] Hematocrit 33.0(L) 40.5 - 48.5 % 06/17/2024 2:53 AM [facility] Mean Cell Volume 93.0 82.9 - 93.1 fL 06/17/2024 2:53 AM [facility] Mean Cell Hemoglobin 30.4 27.5 - 32.1 pg 06/17/2024 2:53 AM [facility] Mean Cell Hemoglobin Concentration 32.7 32.0 - 35.7 g/dL 06/17/2024 2:53 AM [facility] Platelet 101(L) 145 - 357 x10(3)/mc L 06/17/2024 2:53 AM [facility] Mean Platelet Volume 10.4 7.6 - 12.9 fL 06/17/2024 2:53 AM [facility] RDW Standard Deviation 48.4(H) 36.0 - 45.0 fL 06/17/2024 2:53 AM [facility] RDW coefficient of variation 14.1(H) 11.4 - 13.8 % 06/17/2024 2:53 AM [facility] NRBC% auto 0.0 % 06/17/2024 2:53 AM [facility] NRBC Absolute <0.01 <0.01 x10(3)/mc L 06/17/2024 2:53 AM [facility] Blood VENOUS BLOOD SPECIMEN / Unknown Venipuncture / Unknown 06/17/2024 2:39 AM EST 06/17/2024 2:43 AM EST Bobby Loja MD HEMATOLOGY ORDERABLE S [facility] [place] [id number] * (ABNORMAL) Basic Metabolic Panel (06/17/2024 2:39 AM EST) Glucose 149 65 - 199 mg/dL 06/17/2024 3:14 AM [facility] Comment:Glucose Concentratio n >=200 mg/dL plus symptoms is consistent with Diabetes Mellitus. Blood Urea Nitrogen 42(H) 10 - 20 mg/dL 06/17/2024 3:14 AM [facility] Creatinine 1.52(H) 0.80 - 1.50 mg/dL 06/17/2024 3:14 AM [facility] Sodium 133(L) 135 - 145 mMol/L 06/17/2024 3:14 AM [facility] Potassium 4.5 3.5 - 5.0 mMol/L 06/17/2024 3:14 AM [facility] Chloride 101 98 - 107 mMol/L 06/17/2024 3:14 AM [facility] Carbon Dioxide 23 22 - 31 mMol/L 06/17/2024 3:14 AM [facility] Anion Gap 9 5 - 15 mMol/L 06/17/2024 3:14 AM EST [facility] Calcium 8.8 8.5 - 10.5 mg/dL 06/17/2024 3:14 AM EST [facility] Est Glomerular Filtration Rate - Male 50 mL/min/1. 73 m?? 06/17/2024 3:14 AM EST [facility] Comment: This patient's estimated GFR [...] Loja MD CHEMISTRY ORDERABLES Performing Organization Address [facility]/ZIP Co de Phone Number [facility] [place] [address] * (ABNORMAL) POC, GLUCOSE (06/17/2024 12:13 AM EST) [facility] Signature Glucometer, POC 211(H) 65 - 199 mg/dL 06/17/2024 12:13 AM EST [facility] Comment:Supplemental ranges: <140 mg/dL before meals <180 mg/dL all other times of the day. Blood CAPILLARY BLOOD / Unknown 06/17/2024 12:13 AM EST 06/17/2024 12:14 AM EST Bobby Loja MD POINT OF CARE TEST O RDERABLES Performing Organization Address City/[facility]/ZIP Co de Phone Number [facility] [place] [address] * (ABNORMAL) POC, GLUCOSE (06/16/2024 7:22 PM EST) Glucometer, POC 229(H) 65 - 199 mg/dL 06/16/2024 7:22 PM EST [facility] Comment:Supplemental ranges: <140 mg/dL before meals <180 mg/dL all other times of the day. Blood CAPILLARY BLOOD / Unknown 06/16/2024 7:22 PM EST 06/16/2024 7:22 PM EST Bobby Loja MD POINT OF CARE TEST O RDERABLES [facility] [place] [address] * (ABNORMAL) POC, GLUCOSE (06/16/2024 6:14 PM EST) Glucometer, POC 220(H) 65 - 199 mg/dL 06/16/2024 6:14 PM EST [facility] Comment:Supplemental ranges: <140 mg/dL before meals <180 mg/dL all other times of the day. Blood CAPILLARY BLOOD / Unknown 06/16/2024 6:14 PM EST 06/16/2024 6:14 PM EST Narrative Authorizing Provider Result Saranya Loja MD POINT OF CARE TEST O RDERABLES Performing Organization Address City/[facility]/ZIP Co de Phone Number [facility] [place] [address] * Lactate, Whole Blood (06/16/2024 6:14 PM EST) Lactate, Whole Blood 1.8 0.5 - 2.2 mmol/L 06/16/2024 6:27 PM EST [facility] Blood VENOUS BLOOD SPECIMEN / Unknown Venipuncture / Unknown 06/16/2024 6:14 PM EST 06/16/2024 6:25 PM EST Narrative Authorizing Provider Result Saranya Loja MD CHEMISTRY ORDERABLES [facility] [place] [address] * (ABNORMAL) POC, GLUCOSE (06/16/2024 4:14 PM EST) Glucometer, POC 240(H) 65 - 199 mg/dL 06/16/2024 4:14 PM EST [facility] Comment:Supplemental ranges: <140 mg/dL before meals <180 mg/dL all other times of the day. Blood CAPILLARY BLOOD / Unknown 06/16/2024 4:14 PM EST 06/16/2024 4:14 PM EST Bobby Loja MD POINT OF CARE TEST O NIKA Performing Organization Address City/[facility]/ZIP Co de Phone Number [facility] [place] [address] * POC, GLUCOSE (06/16/2024 11:49 AM EST) Glucometer, POC 199 65 - 199 mg/dL 06/16/2024 11:49 AM EST [facility] Comment:Supplemental ranges: <140 mg/dL before meals <180 mg/dL all other times of the day. Blood CAPILLARY BLOOD / Unknown 06/16/2024 11:49 AM EST 06/16/2024 11:49 AM EST Bobby Loja MD POINT OF CARE TEST O NIKA Performing Organization Address City/[facility]/ZIP Co de Phone Number [facility] [place] [address] * (ABNORMAL) Hemogram (06/16/2024 11:44 AM EST) White Blood Cell 17.91(H) 4.00 - 9.50 x10(3)/mc L 06/16/2024 12:25 PM EST [facility] Red Blood Cell 3.47(L) 4.58 - 5.54 x10(6)/mc L 06/16/2024 12:25 PM EST [facility] Hemoglobin 10.5(L) 13.7 - 16.5 g/dL 06/16/2024 12:25 PM [facility] Hematocrit 33.1(L) 40.5 - 48.5 % 06/16/2024 12:25 PM [facility] Mean Cell Volume 95.4(H) 82.9 - 93.1 fL 06/16/2024 12:25 PM [facility] Mean Cell Hemoglobin 30.3 27.5 - 32.1 pg 06/16/2024 12:25 PM [facility] Mean Cell Hemoglobin Concentration 31.7(L) 32.0 - 35.7 g/dL 06/16/2024 12:25 PM [facility] Platelet 101(L) 145 - 357 x10(3)/mc L 06/16/2024 12:25 PM [facility] Mean Platelet Volume 10.6 7.6 - 12.9 fL 06/16/2024 12:25 PM [facility] RDW Standard Deviation 49.5(H) 36.0 - 45.0 fL 06/16/2024 12:25 PM [facility] RDW coefficient of variation 14.2(H) 11.4 - 13.8 % 06/16/2024 12:25 PM [facility] NRBC% auto 0.0 % 06/16/2024 12:25 PM [facility] NRBC Absolute <0.01 <0.01 x10(3)/mc L 06/16/2024 12:25 PM [facility] Blood VENOUS BLOOD SPECIMEN / Unknown Venipuncture / Unknown 06/16/2024 11:44 AM EST 06/16/2024 12:03 PM EST Bobby Loja MD HEMATOLOGY ORDERABLE S [facility] [place] [address] * Lactate, Whole Blood (06/16/2024 9:02 AM EST) Lactate, Whole Blood 1.8 0.5 - 2.2 mmol/L 06/16/2024 9:19 AM EST [facility] Blood VENOUS BLOOD SPECIMEN / Unknown Venipuncture / Unknown 06/16/2024 9:02 AM EST 06/16/2024 9:17 AM EST oBbby Loja MD CHEMISTRY ORDERABLES [facility] [place] [address] * POC, GLUCOSE (06/16/2024 7:44 AM EST) Glucometer, POC 129 65 - 199 mg/dL 06/16/2024 7:44 AM EST [facility] Comment:Supplemental ranges: <140 mg/dL before meals <180 mg/dL all other times of the day. Blood CAPILLARY BLOOD / Unknown 06/16/2024 7:44 AM EST 06/16/2024 7:44 AM EST Bobby Loja MD POINT OF CARE TEST O RDERABLES Performing Organization Address City/[facility]/ZIP Co de Phone Number [facility] [place] [address] * POC, GLUCOSE (06/16/2024 4:01 AM EST) Glucometer, POC 158 65 - 199 mg/dL 06/16/2024 4:01 AM EST [facility] Comment:Supplemental ranges: <140 mg/dL before meals <180 mg/dL all other times of the day. Blood CAPILLARY BLOOD / Unknown 06/16/2024 4:01 AM EST 06/16/2024 4:01 AM EST Narrative Authorizing Provider Result Saranya Loja MD POINT OF CARE TEST O RDERABLES [facility] [place] [address] * (ABNORMAL) Basic Metabolic Panel (06/16/2024 2:23 AM EST) Glucose 177 65 - 199 mg/dL 06/16/2024 3:13 AM [facility] Comment:Glucose Concentratio n >=200 mg/dL plus symptoms is consistent with Diabetes Mellitus. Blood Urea Nitrogen 37(H) 10 - 20 mg/dL 06/16/2024 3:13 AM [facility] Creatinine 2.10(H) 0.80 - 1.50 mg/dL 06/16/2024 3:13 AM [facility] Sodium 132(L) 135 - 145 mMol/L 06/16/2024 3:13 AM [facility] Potassium 4.5 3.5 - 5.0 mMol/L 06/16/2024 3:13 AM [facility] Chloride 99 98 - 107 mMol/L 06/16/2024 3:13 AM [facility] Carbon Dioxide 22 22 - 31 mMol/L 06/16/2024 3:13 AM [facility] Anion Gap 11 5 - 15 mMol/L 06/16/2024 3:13 AM [facility] Calcium 9.0 8.5 - 10.5 mg/dL 06/16/2024 3:13 AM [facility] Est Glomerular Filtration Rate - Male 34 mL/min/1. 73 m?? 06/16/2024 3:13 AM [facility] Comment: This patient's estimated [...] Loja MD CHEMISTRY ORDERABLES Performing Organization Address [facility] Co de Phone Number [facility] [place] [address] * POC, GLUCOSE (06/16/2024 2:21 AM EST) Glucometer, POC 176 65 - 199 mg/dL 06/16/2024 2:31 AM EST [facility] Comment:Supplemental ranges: <140 mg/dL before meals <180 mg/dL all other times of the day. Blood CAPILLARY BLOOD / Unknown 06/16/2024 2:21 AM EST 06/16/2024 2:31 AM EST Bobby Loja MD POINT OF CARE TEST O RDERABLES Performing Organization Address [facility] Co de Phone Number [facility] [place] [address] * (ABNORMAL) POC, GLUCOSE (06/16/2024 12:09 AM EST) Glucometer, POC 222(H) 65 - 199 mg/dL 06/16/2024 12:09 AM EST [facility] Comment:Supplemental ranges: <140 mg/dL before meals <180 mg/dL all other times of the day. Blood CAPILLARY BLOOD / Unknown 06/16/2024 12:09 AM EST 06/16/2024 12:09 AM EST Bobby Loja MD POINT OF CARE TEST O RDBECKIE Performing Organization Address [facility] Co de Phone Number [facility] [place] [address] * (ABNORMAL) POC, GLUCOSE (06/15/2024 10:07 PM EST) Glucometer, POC 320(H) 65 - 199 mg/dL 06/15/2024 10:07 PM EST [facility] Comment:Supplemental ranges: <140 mg/dL before meals <180 mg/dL all other times of the day. Blood CAPILLARY BLOOD / Unknown 06/15/2024 10:07 PM EST 06/15/2024 10:07 PM EST Bobby Loja MD POINT OF CARE TEST O NIKA Performing Organization Address City/[facility]/ZIP Co de Phone Number [facility] [place] [address] * (ABNORMAL) POC, GLUCOSE (06/15/2024 7:56 PM EST) Glucometer, POC 304(H) 65 - 199 mg/dL 06/15/2024 7:56 PM EST [facility] Comment:Supplemental ranges: <140 mg/dL before meals <180 mg/dL all other times of the day. Blood CAPILLARY BLOOD / Unknown 06/15/2024 7:56 PM EST 06/15/2024 7:56 PM EST Bobby Loja MD POINT OF CARE TEST O NIKA Performing Organization Address [facility] Co de Phone Number [facility] [place] [address] * (ABNORMAL) POC, GLUCOSE (06/15/2024 7:52 PM EST) Glucometer, POC 288(H) 65 - 199 mg/dL 06/15/2024 7:52 PM EST [facility] Comment:Supplemental ranges: <140 mg/dL before meals <180 mg/dL all other times of the day. Blood CAPILLARY BLOOD / Unknown 06/15/2024 7:52 PM EST 06/15/2024 7:52 PM EST Narrative Authorizing Provider Result Saranya Loja MD POINT OF CARE TEST O NIKA Performing Organization Address City/[facility]/ZIP Co de Phone Number [facility] [place] [address] * POC, GLUCOSE (06/15/2024 4:21 PM EST) Glucometer, POC 192 65 - 199 mg/dL 06/15/2024 4:21 PM EST [facility] Comment:Supplemental ranges: <140 mg/dL before meals <180 mg/dL all other times of the day. Blood CAPILLARY BLOOD / Unknown 06/15/2024 4:21 PM EST 06/15/2024 4:21 PM EST Bobby Loja MD POINT OF CARE TEST O NIKA Performing Organization Address City/[facility]/ZIP Co de Phone Number [facility] [place] [address] * POC, GLUCOSE (06/15/2024 3:27 PM EST) Glucometer, POC 155 65 - 199 mg/dL 06/15/2024 3:27 PM EST [facility] Comment:Supplemental ranges: <140 mg/dL before meals <180 mg/dL all other times of the day. Blood CAPILLARY BLOOD / Unknown 06/15/2024 3:27 PM EST 06/15/2024 3:27 PM EST Bobby Loja MD POINT OF CARE TEST O NIKA Performing Organization Address [facility] Co de Phone Number [facility] [place] [address] * POC, GLUCOSE (06/15/2024 2:23 PM EST) Glucometer, POC 160 65 - 199 mg/dL 06/15/2024 2:23 PM EST [facility] Comment:Supplemental ranges: <140 mg/dL before meals <180 mg/dL all other times of the day. Blood CAPILLARY BLOOD / Unknown 06/15/2024 2:23 PM EST 06/15/2024 2:23 PM EST Bobby Loja MD POINT OF CARE TEST O NIKA Performing Organization Address City/[facility]/ZIP Co de Phone Number [facility] [place] [address] * POC, GLUCOSE (06/15/2024 1:26 PM EST) Glucometer, POC 167 65 - 199 mg/dL 06/15/2024 1:26 PM EST [facility] Comment:Supplemental ranges: <140 mg/dL before meals <180 mg/dL all other times of the day. Blood CAPILLARY BLOOD / Unknown 06/15/2024 1:26 PM EST 06/15/2024 1:26 PM EST Bobby Loja MD POINT OF CARE TEST O NIKA Performing Organization Address [facility] Co de Phone Number [facility] [place] [address] * (ABNORMAL) POC, GLUCOSE (06/15/2024 12:55 PM EST) Glucometer, POC 210(H) 65 - 199 mg/dL 06/15/2024 12:55 PM EST [facility] Comment:Supplemental ranges: <140 mg/dL before meals <180 mg/dL all other times of the day. Blood CAPILLARY BLOOD / Unknown 06/15/2024 12:55 PM EST 06/15/2024 12:55 PM EST Bobby Loja MD POINT OF CARE TEST O NIKA Performing Organization Address [facility] Co de Phone Number [facility] [place] [address] * (ABNORMAL) POC, GLUCOSE (06/15/2024 11:29 AM EST) Glucometer, POC 220(H) 65 - 199 mg/dL 06/15/2024 11:29 AM EST [facility] Comment:Supplemental ranges: <140 mg/dL before meals <180 mg/dL all other times of the day. Blood CAPILLARY BLOOD / Unknown 06/15/2024 11:29 AM EST 06/15/2024 11:29 AM EST Bobby Loja MD POINT OF CARE TEST O RDERABLES [facility] [place] [address] * (ABNORMAL) Basic Metabolic Panel (06/15/2024 11:23 AM EST) Glucose 215(H) 65 - 199 mg/dL 06/15/2024 12:08 PM EST [facility] Comment:Glucose Concentratio n >=200 mg/dL plus symptoms is consistent with Diabetes Mellitus. Blood Urea Nitrogen 24(H) 10 - 20 mg/dL 06/15/2024 12:08 PM [facility] Creatinine 1.54(H) 0.80 - 1.50 mg/dL 06/15/2024 12:08 PM [facility] Sodium 135 135 - 145 mMol/L 06/15/2024 12:08 PM [facility] Potassium 4.5 3.5 - 5.0 mMol/L 06/15/2024 12:08 PM [facility] Chloride 105 98 - 107 mMol/L 06/15/2024 12:08 PM [facility] Carbon Dioxide 19(L) 22 - 31 mMol/L 06/15/2024 12:08 PM [facility] Anion Gap 11 5 - 15 mMol/L 06/15/2024 12:08 PM [facility] Calcium 8.3(L) 8.5 - 10.5 mg/dL 06/15/2024 12:08 PM [facility] Est Glomerular Filtration Rate - Male 49 mL/min/1. 73 m?? 06/15/2024 12:08 PM [facility] Comment: This patient's estimated [...] Provider Result Saranya Loja MD CHEMISTRY ORDERABLES [facility] [place] [address] * POC, GLUCOSE (06/15/2024 10:29 AM EST) Glucometer, POC 189 65 - 199 mg/dL 06/15/2024 10:29 AM EST [facility] Comment:Supplemental ranges: <140 mg/dL before meals <180 mg/dL all other times of the day. Blood CAPILLARY BLOOD / Unknown 06/15/2024 10:29 AM EST 06/15/2024 10:29 AM EST Bobby Loja MD POINT OF CARE TEST O RDERABLES Performing Organization Address City/[facility]/ZIP Co de Phone Number [facility] [place] [address] * POC, GLUCOSE (06/15/2024 9:45 AM EST) Glucometer, POC 178 65 - 199 mg/dL 06/15/2024 9:45 AM EST [facility] Comment:Supplemental ranges: <140 mg/dL before meals <180 mg/dL all other times of the day. Blood CAPILLARY BLOOD / Unknown 06/15/2024 9:45 AM EST 06/15/2024 9:45 AM EST Narrative Authorizing Provider Result Saranya Loja MD POINT OF CARE TEST O RDERABLES [facility] [place] [address] * (ABNORMAL) Cooximetry, POC (06/15/2024 9:31 AM EST) pO2, Coox 38 mmHg 06/15/2024 9:34 AM [facility] Hemoglobin, Coox 12.9(L) 13.7 - 16.5 g/dL 06/15/2024 9:34 AM [facility] Oxyhemoglobin, Coox 72.1 % 06/15/2024 9:34 AM [facility] Carboxyhemoglo bin, Coox 0.9 % 06/15/2024 9:34 AM [facility] Comment: Nonsmokers: 0.5-1.5% COHB ?? Smokers: Variable ??but usually less than 10% ?? Toxic: 20-30% COHB ?? Lethal: Greater than 60% COHB Methemoglobin, Coox 0.3 <=1.5 % 06/15/2024 9:34 AM [facility] Blood (Mixed Venous) 06/15/2024 9:31 AM EST 06/15/2024 9:34 AM EST Bobby Loja MD POINT OF CARE TEST O RDERABLES [facility] [place] [address] * Cooximetry, POC (06/15/2024 9:22 AM EST) pO2, Coox 30 mmHg 06/15/2024 9:25 AM [facility] Hemoglobin, Coox 06/15/2024 9:25 AM [facility] Comment:QUES Oxyhemoglobin, Coox 06/15/2024 9:25 AM [facility] Comment:QUES Carboxyhemoglo bin, Coox 06/15/2024 9:25 AM [facility] Comment:QUES Methemoglobin, Coox 06/15/2024 9:25 AM [facility] Comment:QUES Blood (Mixed Venous) 06/15/2024 9:22 AM EST 06/15/2024 9:25 AM EST Bobby Loja MD POINT OF CARE TEST O RDERABLES [facility] [place] [address] * (ABNORMAL) Blood Gas, Arterial POC (06/15/2024 9:19 AM EST) pH, Arterial 7.31(L) 7.35 - 7.45 06/15/2024 9:21 AM [facility] PCO2, Arterial 36 35 - 45 mmHg 06/15/2024 9:21 AM [facility] PO2, Arterial 94 85 - 104 mmHg 06/15/2024 9:21 AM [facility] Bicarbonate, Arterial 18.0(L) 20.0 - 26.0 mmol/L 06/15/2024 9:21 AM [facility] Base Excess, Arterial -8.2(L) -3.0 - 3.0 mmol/L 06/15/2024 9:21 AM [facility] Hemoglobin, Arterial 12.7(L) 13.7 - 16.5 g/dL 06/15/2024 9:21 AM [facility] Oxyhemoglobin, Arterial 96.0 94.0 - 97.0 % 06/15/2024 9:21 AM [facility] Carboxyhemoglobin , Arterial 0.5 % 06/15/2024 9:21 AM [facility] Comment: Nonsmokers: 0.5-1.5% COHB ?? Smokers: Variable ??but usually less than 10% ?? Toxic: 20-30% COHB ?? Lethal: Greater than 60% COHB Methemoglobin, Arterial 0.3 <=1.5 % 06/15/2024 9:21 AM [facility] Sodium, Arterial 136 135 - 145 mmol/L 06/15/2024 9:21 AM [facility] Potassium, Arterial 4.0 3.5 - 5.0 mmol/L 06/15/2024 9:21 AM [facility] Chloride, Arterial 106 98 - 107 mmol/L 06/15/2024 9:21 AM [facility] Lactate, Arterial 1.7 0.5 - 2.2 mmol/L 06/15/2024 9:21 AM [facility] [facility] Flow Rate 2.0 L/min 06/15/2024 9:21 AM [facility] IONIZED CALCIUM, ARTERIAL 1.14(L) 1.15 - 1.33 mmol/L 06/15/2024 9:21 AM [facility] Glucose, Arterial 193 65 - 199 mg/dL 06/15/2024 9:21 AM [facility] Comment:Glucose Concentratio n >=200 mg/dL plus symptoms is consistent with Diabetes Mellitus. Blood ARTERIAL BLOOD / Unknown 06/15/2024 9:19 AM EST 06/15/2024 9:20 AM EST Bobby Loja MD POINT OF CARE TEST O NIKA Performing Organization Address City/[facility]/ZIP Co de Phone Number [facility] [place] [address] * (ABNORMAL) POC, GLUCOSE (06/15/2024 8:37 AM EST) Glucometer, POC 204(H) 65 - 199 mg/dL 06/15/2024 8:37 AM [facility] Comment:Supplemental ranges: <140 mg/dL before meals <180 mg/dL all other times of the day. Blood CAPILLARY BLOOD / Unknown 06/15/2024 8:37 AM EST 06/15/2024 8:37 AM EST Bobby Loja MD POINT OF CARE TEST O NIKA [facility] [place] [address] * POC, GLUCOSE (06/15/2024 7:37 AM EST) Glucometer, POC 199 65 - 199 mg/dL 06/15/2024 7:37 AM EST [facility] Comment:Supplemental ranges: <140 mg/dL before meals <180 mg/dL all other times of the day. Blood CAPILLARY BLOOD / Unknown 06/15/2024 7:37 AM EST 06/15/2024 7:38 AM EST Bobby Loja MD POINT OF CARE TEST O NIKA Performing Organization Address [facility] de Phone Number [facility] [place] [address] * (ABNORMAL) POC, GLUCOSE (06/15/2024 7:01 AM EST) Glucometer, POC 203(H) 65 - 199 mg/dL 06/15/2024 7:01 AM EST [facility] Comment:Supplemental ranges: <140 mg/dL before meals <180 mg/dL all other times of the day. Blood CAPILLARY BLOOD / Unknown 06/15/2024 7:01 AM EST 06/15/2024 7:01 AM EST Bobby Loja MD POINT OF CARE TEST Abimael MAHER Performing Organization Address [facility] de Phone Number [facility] [place] [address] * XR Chest One View (06/15/2024 6:31 AM EST) WORKSTATION ID [id number] RAD Anatomical Region Laterality Modality Chest N/A [...] who have questions please contact the health rn progressive care unit that requested your imaging first. ? Electronically signed by: Stuart Aponte MD, [facility] ??([phone]), at 06/15/2024 10:38 AM Narrative 06/15/2024 10:38 [...] patients who have questions please contactthe health rn progressive care unit that requested your imaging first. Electronically signed by: Stuart Aponte MD, [facility]([phone]), at 06/15/2024 10:38 AM Bobby Loja MD IMG DX ORDERABLES * POC, GLUCOSE (06/15/2024 6:02 AM EST) Glucometer, POC 179 65 - 199 mg/dL 06/15/2024 6:02 AM EST [facility] Comment:Supplemental ranges: <140 mg/dL before meals <180 mg/dL all other times of the day. Blood CAPILLARY BLOOD / Unknown 06/15/2024 6:02 AM EST 06/15/2024 6:02 AM EST Bobby Loja MD POINT OF CARE TEST O NIKA Performing Organization Address City/[facility]/ZIP Co de Phone Number [facility] [place] [address] * POC, GLUCOSE (06/15/2024 5:06 AM EST) Glucometer, POC 160 65 - 199 mg/dL 06/15/2024 5:06 AM EST [facility] Comment:Supplemental ranges: <140 mg/dL before meals <180 mg/dL all other times of the day. Blood CAPILLARY BLOOD / Unknown 06/15/2024 5:06 AM EST 06/15/2024 5:06 AM EST Bobby Loja MD POINT OF CARE TEST O NIKA Performing Organization Address City/[facility]/ZIP Co de Phone Number [facility] [place] [address] * POC, GLUCOSE (06/15/2024 4:05 AM EST) Glucometer, POC 160 65 - 199 mg/dL 06/15/2024 4:06 AM EST [facility] Comment:Supplemental ranges: <140 mg/dL before meals <180 mg/dL all other times of the day. Blood CAPILLARY BLOOD / Unknown 06/15/2024 4:05 AM EST 06/15/2024 4:06 AM EST Bobby Loja MD POINT OF CARE TEST O NIKA [facility] [place] [address] * POC, GLUCOSE (06/15/2024 3:07 AM EST) Glucometer, POC 151 65 - 199 mg/dL 06/15/2024 3:07 AM EST [facility] Comment:Supplemental ranges: <140 mg/dL before meals <180 mg/dL all other times of the day. Blood CAPILLARY BLOOD / Unknown 06/15/2024 3:07 AM EST 06/15/2024 3:07 AM EST Bobby Loja MD POINT OF CARE TEST O RDERABLES [facility] [place] [address] * (ABNORMAL) Basic Metabolic Panel (06/15/2024 1:48 AM EST) Glucose 140 65 - 199 mg/dL 06/15/2024 2:38 AM EST [facility] Comment:Glucose Concentratio n >=200 mg/dL plus symptoms is consistent with Diabetes Mellitus. Blood Urea Nitrogen 21(H) 10 - 20 mg/dL 06/15/2024 2:38 AM [facility] Creatinine 1.27 0.80 - 1.50 mg/dL 06/15/2024 2:38 AM [facility] Sodium 140 135 - 145 mMol/L 06/15/2024 2:38 AM [facility] Potassium 4.4 3.5 - 5.0 mMol/L 06/15/2024 2:38 AM [facility] Chloride 108(H) 98 - 107 mMol/L 06/15/2024 2:38 AM [facility] Carbon Dioxide 23 22 - 31 mMol/L 06/15/2024 2:38 AM [facility] Anion Gap 9 5 - 15 mMol/L 06/15/2024 2:38 AM [facility] Calcium 8.3(L) 8.5 - 10.5 mg/dL 06/15/2024 2:38 AM EST [facility] Est Glomerular Filtration Rate - Male 62 mL/min/1. 73 m?? 06/15/2024 2:38 AM [facility] Comment: This patient's estimated [...] AM EST Bobby Loja MD CHEMISTRY ORDERABLES [facility] [place] [address] * (ABNORMAL) CBC (with Diff) (06/15/2024 1:48 AM EST) White Blood Cell 11.71(H) 4.00 - 9.50 x10(3)/mc L 06/15/2024 2:13 AM EST [facility] Red Blood Cell 4.14(L) 4.58 - 5.54 x10(6)/mc L 06/15/2024 2:13 AM EST [facility] Hemoglobin 12.5(L) 13.7 - 16.5 g/dL 06/15/2024 2:13 AM [facility] Hematocrit 38.4(L) 40.5 - 48.5 % 06/15/2024 2:13 AM EST [facility] Mean Cell Volume 92.8 82.9 - 93.1 fL 06/15/2024 2:13 AM [facility] Mean Cell Hemoglobin 30.2 27.5 - 32.1 pg 06/15/2024 2:13 AM [facility] Mean Cell Hemoglobin Concentration 32.6 32.0 - 35.7 g/dL 06/15/2024 2:13 AM [facility] Platelet 101(L) 145 - 357 x10(3)/mc L 06/15/2024 2:13 AM [facility] Mean Platelet Volume 10.0 7.6 - 12.9 fL 06/15/2024 2:13 AM [facility] RDW Standard Deviation 48.8(H) 36.0 - 45.0 fL 06/15/2024 2:13 AM [facility] RDW coefficient of variation 14.2(H) 11.4 - 13.8 % 06/15/2024 2:13 AM [facility] NRBC% auto 0.0 % 06/15/2024 2:13 AM [facility] NRBC Absolute <0.01 <0.01 x10(3)/mc L 06/15/2024 2:13 AM [facility] Neutrophil % 79.7 % 06/15/2024 2:13 AM [facility] Neutrophil Absolute (ANC) - Automated 9.34(H) 1.70 - 6.10 x10(3)/mc L 06/15/2024 2:13 AM [facility] Lymph % 8.0 % 06/15/2024 2:13 AM [facility] Lymph Absolute 0.94 0.90 - 3.20 x10(3)/mc L 06/15/2024 2:13 AM [facility] Monocyte % 11.4 % 06/15/2024 2:13 AM [facility] Monocyte Absolute 1.33(H) 0.30 - 0.90 x10(3)/mc L 06/15/2024 2:13 AM [facility] Eos % 0.2 % 06/15/2024 2:13 AM EST [facility] Eos Absolute <0.04 0.00 - 0.40 x10(3)/mc L 06/15/2024 2:13 AM EST [facility] Basophil % 0.2 % 06/15/2024 2:13 AM EST [facility] Baso Absolute <0.04 0.00 - 0.10 x10(3)/mc L 06/15/2024 2:13 AM EST [facility] Immature Gran % 0.5 % 2:13 AM EST [facility] Immature Gran Absolute 0.06(H) 0.00 - 0.04 x10(3)/mc L 06/15/2024 2:13 AM EST [facility] Blood VENOUS BLOOD SPECIMEN / Unknown Venipuncture / Unknown 06/15/2024 1:48 AM EST 06/15/2024 1:52 AM EST Bobby Loja MD HEMATOLOGY ORDERABLE S [facility] [place] [id number] * (ABNORMAL) Troponin - Single (06/15/2024 1:48 AM EST) Troponin-T, High Sensitivity 667(H) <=22 ng/L 06/15/2024 2:22 AM EST [facility] Comment: This patient's troponin T [...] troponin value can be found in the [facility] Test Catalog Troponin - [email or web address]/[email or web address] Reference: Fourth [place] Definition of Myocardial Infarction. Journal of the [place] [employer] 2018;72:0732-1059 Blood VENOUS BLOOD SPECIMEN / Unknown Venipuncture / Unknown 06/15/2024 1:48 AM EST 06/15/2024 1:52 AM EST Bobby Loja MD CHEMISTRY ORDERABLES [facility] [place] [address] * (ABNORMAL) Blood Gas, Arterial POC (06/15/2024 1:46 AM EST) pH, Arterial 7.33(L) 7.35 - 7.45 06/15/2024 1:47 AM EST [facility] PCO2, Arterial 40 35 - 45 mmHg 06/15/2024 1:47 AM [facility] PO2, Arterial 131(H) 85 - 104 mmHg 06/15/2024 1:47 AM [facility] Bicarbonate, Arterial 20.7 20.0 - 26.0 mmol/L 06/15/2024 1:47 AM EST [facility] Base Excess, Arterial -5.2(L) -3.0 - 3.0 mmol/L 06/15/2024 1:47 AM EST [facility] Hemoglobin, Arterial 13.4(L) 13.7 - 16.5 g/dL 06/15/2024 1:47 AM [facility] Oxyhemoglobin, Arterial 97.9(H) 94.0 - 97.0 % 06/15/2024 1:47 AM EST [facility] Carboxyhemoglobin , Arterial 0.5 % 06/15/2024 1:47 AM EST [facility] Comment: Nonsmokers: 0.5-1.5% COHB ?? Smokers: Variable ??but usually less than 10% ?? Toxic: 20-30% COHB ?? Lethal: Greater than 60% COHB Methemoglobin, Arterial 0.3 <=1.5 % 06/15/2024 1:47 AM [facility] Sodium, Arterial 139 135 - 145 mmol/L 06/15/2024 1:47 AM [facility] Potassium, Arterial 4.2 3.5 - 5.0 mmol/L 06/15/2024 1:47 AM [facility] Chloride, Arterial 107 98 - 107 mmol/L 06/15/2024 1:47 AM [facility] Lactate, Arterial 1.8 0.5 - 2.2 mmol/L 06/15/2024 1:47 AM [facility] Fraction of Inspired Oxygen 40 % 06/15/2024 1:47 AM [facility] PF Ratio 328 Ratio 06/15/2024 1:47 AM [facility] Comment:PF ratio calculated using the non-temperature corrected pO2 result. IONIZED CALCIUM, ARTERIAL 1.17 1.15 - 1.33 mmol/L 06/15/2024 1:47 AM [facility] Glucose, Arterial 127 65 - 199 mg/dL 06/15/2024 1:47 AM [facility] Comment:Glucose Concentratio n >=200 mg/dL plus symptoms is consistent with Diabetes Mellitus. Blood ARTERIAL BLOOD / Unknown 06/15/2024 1:46 AM EST 06/15/2024 1:47 AM EST Bobby Loja MD POINT OF CARE TEST O RDERABLES [facility] [place] [address] * POC, GLUCOSE (06/15/2024 1:05 AM EST) Glucometer, POC 116 65 - 199 mg/dL 06/15/2024 1:05 AM EST [facility] Comment:Supplemental ranges: <140 mg/dL before meals <180 mg/dL all other times of the day. Blood CAPILLARY BLOOD / Unknown 06/15/2024 1:05 AM EST 06/15/2024 1:05 AM EST Bobby Loja MD POINT OF CARE TEST O RDNICOLLEBLES Performing Organization Address City/[facility]/ZIP Co de Phone Number [facility] [place] [address] * POC, GLUCOSE (06/15/2024 12:16 AM EST) Glucometer, POC 135 65 - 199 mg/dL 06/15/2024 12:16 AM EST [facility] Comment:Supplemental ranges: <140 mg/dL before meals <180 mg/dL all other times of the day. Blood CAPILLARY BLOOD / Unknown 06/15/2024 12:16 AM EST 06/15/2024 12:16 AM EST Bobby Loja MD POINT OF CARE TEST O NIKA Performing Organization Address City/[facility]/ZIP Co de Phone Number [facility] [place] [address] * Potassium (06/14/2024 11:28 PM EST) Potassium 4.1 3.5 - 5.0 mMol/L 06/14/2024 11:54 PM EST [facility] Blood VENOUS BLOOD SPECIMEN / Unknown Venipuncture / Unknown 06/14/2024 11:28 PM EST 06/14/2024 11:34 PM EST Bobby Loja MD CHEMISTRY ORDERABLES Performing Organization Address City/[facility]/ZIP Co de Phone Number [facility] [place] [address] * POC, GLUCOSE (06/14/2024 10:58 PM EST) Glucometer, POC 126 65 - 199 mg/dL 06/14/2024 10:59 PM EST [facility] Comment:Supplemental ranges: <140 mg/dL before meals <180 mg/dL all other times of the day. Blood CAPILLARY BLOOD / Unknown 06/14/2024 10:58 PM EST 06/14/2024 10:59 PM EST Narrative Authorizing Provider Result Saranya Loja MD POINT OF CARE TEST O RDERAPIETER Performing Organization Address City/[facility]/ZIP Co de Phone Number [facility] [place] [address] * POC, GLUCOSE (06/14/2024 9:55 PM EST) Glucometer, POC 152 65 - 199 mg/dL 06/14/2024 9:56 PM EST [facility] Comment:Supplemental ranges: <140 mg/dL before meals <180 mg/dL all other times of the day. Blood CAPILLARY BLOOD / Unknown 06/14/2024 9:55 PM EST 06/14/2024 9:56 PM EST Narrative Authorizing Provider Result Saranya Loja MD POINT OF CARE TEST O NIKA Performing Organization Address City/[facility]/ZIP Co de Phone Number [facility] [place] [address] * POC, GLUCOSE (06/14/2024 8:54 PM EST) Glucometer, POC 151 65 - 199 mg/dL 06/14/2024 8:54 PM EST [facility] Comment:Supplemental ranges: <140 mg/dL before meals <180 mg/dL all other times of the day. Blood CAPILLARY BLOOD / Unknown 06/14/2024 8:54 PM EST 06/14/2024 8:54 PM EST Narrative Authorizing Provider Result Saranya Loja MD POINT OF CARE TEST O RDERAPIETER Performing Organization Address City/[facility]/ZIP Co de Phone Number [facility] [place] [address] * POC, GLUCOSE (06/14/2024 7:51 PM EST) Glucometer, POC 169 65 - 199 mg/dL 06/14/2024 7:52 PM EST [facility] Comment:Supplemental ranges: <140 mg/dL before meals <180 mg/dL all other times of the day. Blood CAPILLARY BLOOD / Unknown 06/14/2024 7:51 PM EST 06/14/2024 7:52 PM EST Bobby Loja MD POINT OF CARE TEST O NIKA [facility] [place] [address] * POC, GLUCOSE (06/14/2024 6:49 PM EST) Glucometer, POC 194 65 - 199 mg/dL 06/14/2024 6:50 PM EST [facility] Comment:Supplemental ranges: <140 mg/dL before meals <180 mg/dL all other times of the day. Blood CAPILLARY BLOOD / Unknown 06/14/2024 6:49 PM EST 06/14/2024 6:50 PM EST Bobby Loja MD POINT OF CARE TEST O NIKA [facility] [place] [address] * (ABNORMAL) Hemoglobin (06/14/2024 6:19 PM EST) Hemoglobin 13.1(L) 13.7 - 16.5 g/dL 06/14/2024 7:08 PM EST [facility] Blood VENOUS BLOOD SPECIMEN / Unknown Venipuncture / Unknown 06/14/2024 6:19 PM EST 06/14/2024 6:28 PM EST Bobby Loja MD HEMATOLOGY ORDERABLE S [facility] [place] [address] * Potassium (06/14/2024 6:19 PM EST) [facility] Potassium 3.9 3.5 - 5.0 mMol/L 06/14/2024 6:52 PM EST [facility] Blood VENOUS BLOOD SPECIMEN / Unknown Venipuncture / Unknown 06/14/2024 6:19 PM EST 06/14/2024 6:28 PM EST Bobby Loja MD CHEMISTRY ORDERABLES Performing Organization Address City/[facility]/ZIP Co de Phone Number [facility] [place] [address] * (ABNORMAL) POC, GLUCOSE (06/14/2024 6:03 PM EST) [facility] Glucometer, POC 201(H) 65 - 199 mg/dL 06/14/2024 6:03 PM EST [facility] Comment:Supplemental ranges: <140 mg/dL before meals <180 mg/dL all other times of the day. Blood CAPILLARY BLOOD / Unknown 06/14/2024 6:03 PM EST 06/14/2024 6:03 PM EST Bobby Loja MD POINT OF CARE TEST O RDERABLES Performing Organization Address City/[facility]/ZIP Co de Phone Number [facility] [place] [address] * (ABNORMAL) Blood Gas, Arterial POC (06/14/2024 4:51 PM EST) [facility] pH, Arterial 7.32(L) 7.35 - 7.45 06/14/2024 4:52 PM EST [facility] PCO2, Arterial 46(H) 35 - 45 mmHg 06/14/2024 4:52 PM EST [facility] PO2, Arterial 85 85 - 104 mmHg 06/14/2024 4:52 PM [facility] Bicarbonate, Arterial 23.1 20.0 - 26.0 mmol/L 06/14/2024 4:52 PM EST [facility] Base Excess, Arterial -3.1(L) -3.0 - 3.0 mmol/L 06/14/2024 4:52 PM [facility] Hemoglobin, Arterial 14.3 13.7 - 16.5 g/dL 06/14/2024 4:52 PM [facility] Oxyhemoglobin, Arterial 94.7 94.0 - 97.0 % 06/14/2024 4:52 PM [facility] Carboxyhemoglobin , Arterial 0.6 % 06/14/2024 4:52 PM [facility] Comment: Nonsmokers: 0.5-1.5% COHB ?? Smokers: Variable ??but usually less than 10% ?? Toxic: 20-30% COHB ?? Lethal: Greater than 60% COHB Methemoglobin, Arterial 0.0 <=1.5 % 06/14/2024 4:52 PM [facility] Sodium, Arterial 138 135 - 145 mmol/L 06/14/2024 4:52 PM [facility] Potassium, Arterial 4.1 3.5 - 5.0 mmol/L 06/14/2024 4:52 PM [facility] Chloride, Arterial 106 98 - 107 mmol/L 06/14/2024 4:52 PM [facility] Lactate, Arterial 1.3 0.5 - 2.2 mmol/L 06/14/2024 4:52 PM [facility] Fraction of Inspired Oxygen 40 % 06/14/2024 4:52 PM [facility] PF Ratio 213 Ratio 06/14/2024 4:52 PM [facility] Comment:PF ratio calculated using the non-temperature corrected pO2 result. IONIZED CALCIUM, ARTERIAL 1.16 1.15 - 1.33 mmol/L 06/14/2024 4:52 PM [facility] Glucose, Arterial 192 65 - 199 mg/dL 06/14/2024 4:52 PM [facility] Comment:Glucose Concentratio n >=200 mg/dL plus symptoms is consistent with Diabetes Mellitus. Blood ARTERIAL BLOOD / Unknown 06/14/2024 4:51 PM EST 06/14/2024 4:52 PM EST Bobby Loja MD POINT OF CARE TEST O NIKA Performing Organization Address [facility] Co de Phone Number [facility] [place] [address] * POC, GLUCOSE (06/14/2024 4:00 PM EST) Glucometer, POC 184 65 - 199 mg/dL 06/14/2024 4:01 PM EST [facility] Comment:Supplemental ranges: <140 mg/dL before meals <180 mg/dL all other times of the day. Blood CAPILLARY BLOOD / Unknown 06/14/2024 4:00 PM EST 06/14/2024 4:01 PM EST Bobby Loja MD POINT OF CARE TEST O NIKA Performing Organization Address [facility] Phone Number [facility] [place] [address] * XR Chest One View (06/14/2024 3:05 PM EST) WORKSTATION ID [id number] DH RAD Anatomical Region Laterality Modality Chest [...] who have questions please contact the health rn progressive care unit that requested your imaging first. ? Electronically signed by: Stuart Aponte MD, [facility] ??([phone]), at 06/14/2024 4:07 PM Narrative 06/14/2024 4:07 [...] patients who have questions please contactthe health rn progressive care unit that requested your imaging first. Electronically signed by: Stuart Aponte MD, [facility]([phone]), at 06/14/2024 4:07 PM Bobby Loja MD IMG DX ORDERABLES * (ABNORMAL) Blood Gas, Arterial POC (06/14/2024 2:52 PM EST) pH, Arterial 7.28(LLL) 7.35 - 7.45 06/14/2024 2:53 PM EST [facility] PCO2, Arterial 50(H) 35 - 45 mmHg 06/14/2024 2:53 PM [facility] PO2, Arterial 510(H) 85 - 104 mmHg 06/14/2024 2:53 PM [facility] Bicarbonate, Arterial 22.8 20.0 - 26.0 mmol/L 06/14/2024 2:53 PM [facility] Base Excess, Arterial -4.0(L) -3.0 - 3.0 mmol/L 06/14/2024 2:53 PM [facility] Hemoglobin, Arterial 13.8 13.7 - 16.5 g/dL 06/14/2024 2:53 PM [facility] Oxyhemoglobin, Arterial 99.3(H) 94.0 - 97.0 % 06/14/2024 2:53 PM [facility] Carboxyhemoglobin , Arterial 0.6 % 06/14/2024 2:53 PM [facility] Comment: Nonsmokers: 0.5-1.5% COHB ?? Smokers: Variable ??but usually less than 10% ?? Toxic: 20-30% COHB ?? Lethal: Greater than 60% COHB Methemoglobin, Arterial 0.1 <=1.5 % 06/14/2024 2:53 PM [facility] Sodium, Arterial 138 135 - 145 mmol/L 06/14/2024 2:53 PM [facility] Potassium, Arterial 4.2 3.5 - 5.0 mmol/L 06/14/2024 2:53 PM EST [facility] Chloride, Arterial 106 98 - 107 mmol/L 06/14/2024 2:53 PM [facility] Lactate, Arterial 1.1 0.5 - 2.2 mmol/L 06/14/2024 2:53 PM EST [facility] Fraction of Inspired Oxygen 100 % 06/14/2024 2:53 PM EST [facility] PF Ratio 510 Ratio 06/14/2024 2:53 PM [facility] Comment:PF ratio calculated using the non-temperature corrected pO2 result. IONIZED CALCIUM, ARTERIAL 1.15 1.15 - 1.33 mmol/L 06/14/2024 2:53 PM [facility] Glucose, Arterial 169 65 - 199 mg/dL 06/14/2024 2:53 PM [facility] Comment:Glucose Concentratio n >=200 mg/dL plus symptoms is consistent with Diabetes Mellitus. Blood ARTERIAL BLOOD / Unknown 06/14/2024 2:52 PM EST 06/14/2024 2:53 PM EST Bobby Loja MD POINT OF CARE TEST O RDERABLES [facility] [place] [address] * EKG 12 Lead (06/14/2024 2:46 PM EST) Ventricular rate 80 BPM MUSE SYSTEM Atrial Rate 80 BPM MUSE SYSTEM P-R Interval 120 ms MUSE SYSTEM QRS Duration 108 ms MUSE SYSTEM Q-T Interval 454 ms MUSE SYSTEM QTC Calculated (Bezet) 523 ms MUSE SYSTEM Calculated P [place] 70 degrees MUSE SYSTEM Calculated R [place] 56 degrees MUSE SYSTEM Calculated T [place] 50 degrees MUSE SYSTEM INTERPRETATION AV dual-paced rhythm Abnormal ECG When compared with ECG of 03-JUN-2024 01:45, Vent. rate has increased BY ??17 BPM Confirmed by MD Marisol, Shaheen ([id number]) on 06/15/2024 1:57:23 PM MUSE SYSTEM 06/14/2024 2:46 PM EST 06/15/2024 1:57 PM EST Bobby Loja MD ECG ORDERABLES MUSE SYSTEM * Prepare RBC (06/14/2024 2:27 PM EST) Status Information Returned [facility] Product Identification RBC [facility] Unit [facility] [id number] [facility] Product [facility] [id number] [facility] Unit Blood Type OPOS [facility] Specimen Expiration Date [facility] Volulme 350 [facility] Issue [facility] / Time [facility] Status [facility] Returned [facility] Product Identification RBC [facility] Unit Number [id number] [facility] Product [facility] [id number] [facility] Unit Blood Type OPOS [facility] Specimen [facility]piration Date [facility] [facility] [address] [facility] Issue Date / Time [facility] Blood 06/14/2024 6:2 5 AM EST Haja Byrnes MD BLOOD BANK PRODUCT O RDERABLES [facility] [place] [address] * (ABNORMAL) Cooximetry, POC (06/14/2024 1:52 PM EST) pO2, Coox 58 mmHg 06/14/2024 1:55 PM EST [facility] Hemoglobin, Coox 12.6(L) 13.7 - 16.5 g/dL 06/14/2024 1:55 PM EST [facility] Oxyhemoglobin, Coox 85.5 % 06/14/2024 1:55 PM EST [facility] Carboxyhemoglo bin, Coox 0.3 % 06/14/2024 1:55 PM EST [facility] Comment: Nonsmokers: 0.5-1.5% COHB ?? Smokers: Variable ??but usually less than 10% ?? Toxic: 20-30% COHB ?? Lethal: Greater than 60% COHB Methemoglobin, Coox 0.6 <=1.5 % 06/14/2024 1:55 PM [facility] Blood (Mixed Venous) 06/14/2024 1:52 PM EST 06/14/2024 1:55 PM EST Haja Byrnes MD POINT OF CARE TEST O RDERABLES [facility] [place] [address] * (ABNORMAL) Blood Gas, Arterial POC (06/14/2024 12:47 PM EST) pH, Arterial 7.33(L) 7.35 - 7.45 06/14/2024 12:48 PM [facility] PCO2, Arterial 46(H) 35 - 45 mmHg 06/14/2024 12:48 PM [facility] PO2, Arterial 358(H) 85 - 104 mmHg 06/14/2024 12:48 PM [facility] Bicarbonate, Arterial 23.8 20.0 - 26.0 mmol/L 06/14/2024 12:48 PM [facility] Base Excess, Arterial -2.1 -3.0 - 3.0 mmol/L 06/14/2024 12:48 PM [facility] Hemoglobin, Arterial 11.7(L) 13.7 - 16.5 g/dL 06/14/2024 12:48 PM [facility] Oxyhemoglobin, Arterial 98.7(H) 94.0 - 97.0 % 06/14/2024 12:48 PM [facility] Carboxyhemoglobin , Arterial 0.3 % 06/14/2024 12:48 PM [facility] Comment: Nonsmokers: 0.5-1.5% COHB ?? Smokers: Variable ??but usually less than 10% ?? Toxic: 20-30% COHB ?? Lethal: Greater than 60% COHB Methemoglobin, Arterial 0.5 <=1.5 % 06/14/2024 12:48 PM EST [facility] Sodium, Arterial 135 135 - 145 mmol/L 06/14/2024 12:48 PM [facility] Potassium, Arterial 5.0 3.5 - 5.0 mmol/L 06/14/2024 12:48 PM [facility] Chloride, Arterial 106 98 - 107 mmol/L 06/14/2024 12:48 PM [facility] Lactate, Arterial 1.4 0.5 - 2.2 mmol/L 06/14/2024 12:48 PM [facility] IONIZED CALCIUM, ARTERIAL 1.09(L) 1.15 - 1.33 mmol/L 06/14/2024 12:48 PM [facility] Glucose, Arterial 157 65 - 199 mg/dL 06/14/2024 12:48 PM [facility] Comment:Glucose Concentratio n >=200 mg/dL plus symptoms is consistent with Diabetes Mellitus. Blood ARTERIAL BLOOD / Unknown 06/14/2024 12:47 PM EST 06/14/2024 12:48 PM EST Haja Byrnes MD POINT OF CARE TEST O RDERABLES [facility] [place] [address] * (ABNORMAL) Cooximetry, POC (06/14/2024 12:42 PM EST) pO2, Coox 71 mmHg 06/14/2024 12:45 PM [facility] Hemoglobin, Coox 11.6(L) 13.7 - 16.5 g/dL 06/14/2024 12:45 PM [facility] Oxyhemoglobin, Coox 91.5 % 06/14/2024 12:45 PM EST [facility] Carboxyhemoglo bin, Coox 0.3 % 06/14/2024 12:45 PM EST [facility] Comment: Nonsmokers: 0.5-1.5% COHB ?? Smokers: Variable ??but usually less than 10% ?? Toxic: 20-30% COHB ?? Lethal: Greater than 60% COHB Methemoglobin, Coox 0.4 <=1.5 % 06/14/2024 12:45 PM EST [facility] Blood (Mixed Venous) 06/14/2024 12:42 PM EST 06/14/2024 12:45 PM EST Haja Byrnes MD POINT OF CARE TEST O RDERABLES [facility] [place] [address] * (ABNORMAL) Platelet count (06/14/2024 12:30 PM EST) Platelet 73(L) 145 - 357 x10(3)/mcL 06/14/2024 12:54 PM EST [facility] Blood ARTERIAL BLOOD / Unknown 06/14/2024 12:30 PM EST Comment:Pre-op diagnosis: CAD Bobby Loja MD HEMATOLOGY ORDERABLE S Performing Organization Address City/[facility]/ZIP Co de Phone Number [facility] [place] [address] * (ABNORMAL) Hemoglobin and Hematocrit, blood (06/14/2024 12:30 PM EST) Hemoglobin 10.9(L) 13.7 - 16.5 g/dL 06/14/2024 12:54 PM EST [facility] Hematocrit 33.5(L) 40.5 - 48.5 % 06/14/2024 12:54 PM EST [facility] Comment:This result has been called to Danielle López by Satya Page on 06/14/2024 12:53:56, and has been read back. Blood ARTERIAL BLOOD / Unknown 06/14/2024 12:30 PM EST 06/14/2024 12:42 PM EST Comment:Pre-op diagnosis: CAD Bobby Loja MD HEMATOLOGY ORDERABLE S Performing Organization Address [facility] Co de Phone Number [facility] [place] [address] * APTT (06/14/2024 12:30 PM EST) Partial Thromboplastin Time 31 25 - 37 sec 06/14/2024 12:57 PM EST [facility] Comment: The PTT is NOT appropriate for heparin monitoring. Use the Anti-Xa level for heparin monitoring (HEP UFH) or LMWH monitoring (HEP LMW). A PTT less than 37 seconds generally indicates adequate hemostasis. Blood ARTERIAL BLOOD / Unknown 06/14/2024 12:30 PM EST 06/14/2024 12:42 PM EST Comment:Pre-op diagnosis: CAD Bobby Loja MD HEMATOLOGY ORDERABLE S Performing Organization Address [facility] Co de Phone Number [facility] [place] [address] * (ABNORMAL) Prothrombin Time (06/14/2024 12:30 PM EST) Prothrombin Time 16.8(H) 9.4 - 12.5 sec 06/14/2024 12:57 PM EST [facility] International Normalization Ratio 1.5 <=4.9 06/14/2024 12:57 PM EST [facility] Comment: An INR < 2.0 [...] MD HEMATOLOGY ORDERABLE S Performing Organization Address [facility] Co de Phone Number [facility] [place] [address] * Fibrinogen (06/14/2024 12:30 PM EST) Fibrinogen 211 200 - 393 mg/dL 06/14/2024 12:57 PM EST [facility] Comment: A fibrinogen level >100 mg/dL is adequate for hemostasis in most patients without underlying bleeding disorders. Blood ARTERIAL BLOOD / Unknown 06/14/2024 12:30 PM EST 06/14/2024 12:42 PM EST Comment:Pre-op diagnosis: CAD Bobby Loja MD HEMATOLOGY ORDERABLE S Performing Organization Address [facility] Co de Phone Number [facility] [place] [address] * (ABNORMAL) Blood Gas, Arterial POC (06/14/2024 12:15 PM EST) pH, Arterial 7.38 7.35 - 7.45 06/14/2024 12:16 PM [facility] PCO2, Arterial 40 35 - 45 mmHg 06/14/2024 12:16 PM [facility] Bicarbonate, Arterial 22.9 20.0 - 26.0 mmol/L 06/14/2024 12:16 PM [facility] Base Excess, Arterial -2.3 -3.0 - 3.0 mmol/L 06/14/2024 12:16 PM [facility] Hemoglobin, Arterial 11.4(L) 13.7 - 16.5 g/dL 06/14/2024 12:16 PM [facility] Oxyhemoglobin, Arterial 98.8(H) 94.0 - 97.0 % 06/14/2024 12:16 PM [facility] Carboxyhemoglobin , Arterial 0.3 % 06/14/2024 12:16 PM EST [facility] Comment: Nonsmokers: 0.5-1.5% COHB ?? Smokers: Variable ??but usually less than 10% ?? Toxic: 20-30% COHB ?? Lethal: Greater than 60% COHB Methemoglobin, Arterial 0.6 <=1.5 % 06/14/2024 12:16 PM [facility] Sodium, Arterial 134(L) 135 - 145 mmol/L 06/14/2024 12:16 PM [facility] Potassium, Arterial 5.4(H) 3.5 - 5.0 mmol/L 06/14/2024 12:16 PM [facility] Chloride, Arterial 105 98 - 107 mmol/L 06/14/2024 12:16 PM [facility] Lactate, Arterial 1.3 0.5 - 2.2 mmol/L 06/14/2024 12:16 PM [facility] IONIZED CALCIUM, ARTERIAL 1.08(L) 1.15 - 1.33 mmol/L 06/14/2024 12:16 PM [facility] Glucose, Arterial 161 65 - 199 mg/dL 06/14/2024 12:16 PM [facility] Comment:Glucose Concentratio n >=200 mg/dL plus symptoms is consistent with Diabetes Mellitus. Blood ARTERIAL BLOOD / Unknown 06/14/2024 12:15 PM EST 06/14/2024 12:16 PM EST Haja Byrnes MD POINT OF CARE TEST O RDERABLES [facility] [place] [address] * (ABNORMAL) Blood Gas, Arterial POC (06/14/2024 11:51 AM EST) pH, Arterial 7.40 7.35 - 7.45 06/14/2024 11:52 AM EST [facility] PCO2, Arterial 41 35 - 45 mmHg 06/14/2024 11:52 AM [facility] PO2, Arterial 332(H) 85 - 104 mmHg 06/14/2024 11:52 AM [facility] Bicarbonate, Arterial 24.7 20.0 - 26.0 mmol/L 06/14/2024 11:52 AM [facility] Base Excess, Arterial -0.1 -3.0 - 3.0 mmol/L 06/14/2024 11:52 AM [facility] Hemoglobin, Arterial 11.1(L) 13.7 - 16.5 g/dL 06/14/2024 11:52 AM [facility] Oxyhemoglobin, Arterial 98.7(H) 94.0 - 97.0 % 06/14/2024 11:52 AM [facility] Carboxyhemoglobin , Arterial 0.3 % 06/14/2024 11:52 AM [facility] Comment: Nonsmokers: 0.5-1.5% COHB ?? Smokers: Variable ??but usually less than 10% ?? Toxic: 20-30% COHB ?? Lethal: Greater than 60% COHB Methemoglobin, Arterial 0.4 <=1.5 % 06/14/2024 11:52 AM [facility] Sodium, Arterial 135 135 - 145 mmol/L 06/14/2024 11:52 AM [facility] Potassium, Arterial 5.7(H) 3.5 - 5.0 mmol/L 06/14/2024 11:52 AM [facility] Chloride, Arterial 105 98 - 107 mmol/L 06/14/2024 11:52 AM [facility] Lactate, Arterial 1.2 0.5 - 2.2 mmol/L 06/14/2024 11:52 AM [facility] IONIZED CALCIUM, ARTERIAL 1.10(L) 1.15 - 1.33 mmol/L 06/14/2024 11:52 AM [facility] Glucose, Arterial 148 65 - 199 mg/dL 06/14/2024 11:52 AM [facility] Comment:Glucose Concentratio n >=200 mg/dL plus symptoms is consistent with Diabetes Mellitus. Blood ARTERIAL BLOOD / Unknown 06/14/2024 11:51 AM EST 06/14/2024 11:52 AM EST Haja Byrnes MD POINT OF CARE TEST O RDERABLES [facility] [place] [address] * (ABNORMAL) Blood Gas, Arterial POC (06/14/2024 11:27 AM EST) pH, Arterial 7.38 7.35 - 7.45 06/14/2024 11:28 AM [facility] PCO2, Arterial 37 35 - 45 mmHg 06/14/2024 11:28 AM [facility] PO2, Arterial 348(H) 85 - 104 mmHg 06/14/2024 11:28 AM [facility] Bicarbonate, Arterial 21.1 20.0 - 26.0 mmol/L 06/14/2024 11:28 AM [facility] Base Excess, Arterial -4.1(L) -3.0 - 3.0 mmol/L 06/14/2024 11:28 AM [facility] Hemoglobin, Arterial 11.0(L) 13.7 - 16.5 g/dL 06/14/2024 11:28 AM [facility] Oxyhemoglobin, Arterial 98.7(H) 94.0 - 97.0 % 06/14/2024 11:28 AM [facility] Carboxyhemoglobin , Arterial 0.3 % 06/14/2024 11:28 AM [facility] Comment: Nonsmokers: 0.5-1.5% COHB ?? Smokers: Variable ??but usually less than 10% ?? Toxic: 20-30% COHB ?? Lethal: Greater than 60% COHB Methemoglobin, Arterial 0.4 <=1.5 % 06/14/2024 11:28 AM [facility] Sodium, Arterial 132(L) 135 - 145 mmol/L 06/14/2024 11:28 AM [facility] Potassium, Arterial 5.8(H) 3.5 - 5.0 mmol/L 06/14/2024 11:28 AM [facility] Chloride, Arterial 105 98 - 107 mmol/L 06/14/2024 11:28 AM [facility] Lactate, Arterial 1.1 0.5 - 2.2 mmol/L 06/14/2024 11:28 AM [facility] IONIZED CALCIUM, ARTERIAL 1.03(L) 1.15 - 1.33 mmol/L 06/14/2024 11:28 AM [facility] Glucose, Arterial 147 65 - 199 mg/dL 06/14/2024 11:28 AM [facility] Comment:Glucose Concentratio n >=200 mg/dL plus symptoms is consistent with Diabetes Mellitus. Blood ARTERIAL BLOOD / Unknown 06/14/2024 11:27 AM EST 06/14/2024 11:28 AM EST Haja Byrnes MD POINT OF CARE TEST O RDERABLES [facility] [place] [address] * (ABNORMAL) Scan, Peripheral Blood (06/14/2024 11:23 AM EST) RBC Morphology Abnormal 06/14/2024 11:59 AM [facility] Platelet Estimate Decreased(A) Normal 06/14/2024 11:59 AM [facility] [place] cells 1-5 /HPF 06/14/2024 11:59 AM [facility] Blood ARTERIAL BLOOD / Unknown 06/14/2024 11:23 AM EST 06/14/2024 11:27 AM EST Bobby Loja MD HEMATOLOGY ORDERABLE S [facility] [place] [address] * (ABNORMAL) Platelet count (06/14/2024 11:23 AM EST) Platelet 86(L) 145 - 357 x10(3)/mcL 06/14/2024 11:59 AM EST [facility] Blood ARTERIAL BLOOD / Unknown 06/14/2024 11:23 AM EST Comment:Pre-op diagnosis: CAD Bobby Loja MD HEMATOLOGY ORDERABLE S [facility] [place] [address] * (ABNORMAL) Hemoglobin and Hematocrit, blood (06/14/2024 11:23 AM EST) Hemoglobin 9.8(L) 13.7 - 16.5 g/dL 06/14/2024 11:59 AM EST [facility] Comment:This result has been called to Danielle López by Satya Page on 06/14/2024 11:58:33. Hematocrit 30.5(L) 40.5 - 48.5 % 06/14/2024 11:59 AM EST [facility] Comment:This result has been called to Danielle López by Satya Page on 06/14/2024 11:58:40, and has been read back. Blood ARTERIAL BLOOD / Unknown 06/14/2024 11:23 AM EST 06/14/2024 11:27 AM EST Comment:Pre-op diagnosis: CAD Bobby Loja MD HEMATOLOGY ORDERABLE S [facility] [place] [address] * (ABNORMAL) Blood Gas, Arterial POC (06/14/2024 10:58 AM EST) pH, Arterial 7.38 7.35 - 7.45 06/14/2024 10:59 AM EST [facility] PCO2, Arterial 43 35 - 45 mmHg 06/14/2024 10:59 AM [facility] PO2, Arterial 401(H) 85 - 104 mmHg 06/14/2024 10:59 AM [facility] Bicarbonate, Arterial 24.8 20.0 - 26.0 mmol/L 06/14/2024 10:59 AM [facility] Base Excess, Arterial -0.5 -3.0 - 3.0 mmol/L 06/14/2024 10:59 AM [facility] Hemoglobin, Arterial 11.9(L) 13.7 - 16.5 g/dL 06/14/2024 10:59 AM [facility] Oxyhemoglobin, Arterial 99.0(H) 94.0 - 97.0 % 06/14/2024 10:59 AM [facility] Carboxyhemoglobin , Arterial 0.3 % 06/14/2024 10:59 AM [facility] Comment: Nonsmokers: 0.5-1.5% COHB ?? Smokers: Variable ??but usually less than 10% ?? Toxic: 20-30% COHB ?? Lethal: Greater than 60% COHB Methemoglobin, Arterial 0.3 <=1.5 % 06/14/2024 10:59 AM [facility] Sodium, Arterial 128(L) 135 - 145 mmol/L 06/14/2024 10:59 AM [facility] Potassium, Arterial 6.6(HHH) 3.5 - 5.0 mmol/L 06/14/2024 10:59 AM [facility] Chloride, Arterial 99 98 - 107 mmol/L 06/14/2024 10:59 AM [facility] Lactate, Arterial 1.3 0.5 - 2.2 mmol/L 06/14/2024 10:59 AM [facility] IONIZED CALCIUM, ARTERIAL 1.00(L) 1.15 - 1.33 mmol/L 06/14/2024 10:59 AM [facility] Glucose, Arterial 155 65 - 199 mg/dL 06/14/2024 10:59 AM [facility] Comment:Glucose Concentratio n >=200 mg/dL plus symptoms is consistent with Diabetes Mellitus. Blood ARTERIAL BLOOD / Unknown 06/14/2024 10:58 AM EST 06/14/2024 10:59 AM EST Haja Byrnes MD POINT OF CARE TEST O RDERABLES [facility] [place] [address] * (ABNORMAL) Blood Gas, Arterial POC (06/14/2024 10:26 AM EST) pH, Arterial 7.29(LLL) 7.35 - 7.45 06/14/2024 10:27 AM [facility] PCO2, Arterial 43 35 - 45 mmHg 06/14/2024 10:27 AM [facility] PO2, Arterial 369(H) 85 - 104 mmHg 06/14/2024 10:27 AM [facility] Bicarbonate, Arterial 19.9(L) 20.0 - 26.0 mmol/L 06/14/2024 10:27 AM [facility] Base Excess, Arterial -6.7(L) -3.0 - 3.0 mmol/L 06/14/2024 10:27 AM [facility] Hemoglobin, Arterial 12.6(L) 13.7 - 16.5 g/dL 06/14/2024 10:27 AM [facility] Oxyhemoglobin, Arterial 99.1(H) 94.0 - 97.0 % 06/14/2024 10:27 AM [facility] Carboxyhemoglobin , Arterial 0.1 % 06/14/2024 10:27 AM [facility] Comment: Nonsmokers: 0.5-1.5% COHB ?? Smokers: Variable ??but usually less than 10% ?? Toxic: 20-30% COHB ?? Lethal: Greater than 60% COHB Methemoglobin, Arterial 0.4 <=1.5 % 06/14/2024 10:27 AM [facility] Sodium, Arterial 129(L) 135 - 145 mmol/L 06/14/2024 10:27 AM [facility] Potassium, Arterial 5.0 3.5 - 5.0 mmol/L 06/14/2024 10:27 AM [facility] Chloride, Arterial 99 98 - 107 mmol/L 06/14/2024 10:27 AM [facility] Lactate, Arterial 0.9 0.5 - 2.2 mmol/L 06/14/2024 10:27 AM [facility] IONIZED CALCIUM, ARTERIAL 1.05(L) 1.15 - 1.33 mmol/L 06/14/2024 10:27 AM [facility] Glucose, Arterial 149 65 - 199 mg/dL 06/14/2024 10:27 AM [facility] Comment:Glucose Concentratio n >=200 mg/dL plus symptoms is consistent with Diabetes Mellitus. Blood ARTERIAL BLOOD / Unknown 06/14/2024 10:26 AM EST 06/14/2024 10:27 AM EST Haja Byrnes MD POINT OF CARE TEST O RDERABLES [facility] [place] [address] * (ABNORMAL) Blood Gas, Arterial POC (06/14/2024 10:25 AM EST) pH, Arterial 7.26(LLL) 7.35 - 7.45 06/14/2024 10:26 AM [facility] PCO2, Arterial 48(H) 35 - 45 mmHg 06/14/2024 10:26 AM [facility] Bicarbonate, Arterial 21.2 20.0 - 26.0 mmol/L 06/14/2024 10:26 AM [facility] Base Excess, Arterial -5.8(L) -3.0 - 3.0 mmol/L 06/14/2024 10:26 AM [facility] Hemoglobin, Arterial 12.5(L) 13.7 - 16.5 g/dL 06/14/2024 10:26 AM [facility] Oxyhemoglobin, Arterial 82.3(L) 94.0 - 97.0 % 06/14/2024 10:26 AM [facility] Carboxyhemoglobin , Arterial 0.5 % 06/14/2024 10:26 AM [facility] Comment: Nonsmokers: 0.5-1.5% COHB ?? Smokers: Variable ??but usually less than 10% ?? Toxic: 20-30% COHB ?? Lethal: Greater than 60% COHB Methemoglobin, Arterial 0.5 <=1.5 % 06/14/2024 10:26 AM [facility] Sodium, Arterial 131(L) 135 - 145 mmol/L 06/14/2024 10:26 AM [facility] Potassium, Arterial 4.6 3.5 - 5.0 mmol/L 06/14/2024 10:26 AM [facility] Chloride, Arterial 103 98 - 107 mmol/L 06/14/2024 10:26 AM [facility] Lactate, Arterial 0.8 0.5 - 2.2 mmol/L 06/14/2024 10:26 AM [facility] IONIZED CALCIUM, ARTERIAL 0.91(LLL) 1.15 - 1.33 mmol/L 06/14/2024 10:26 AM [facility] Glucose, Arterial 148 65 - 199 mg/dL 06/14/2024 10:26 AM [facility] Comment:Glucose Concentratio n >=200 mg/dL plus symptoms is consistent with Diabetes Mellitus. Blood ARTERIAL BLOOD / Unknown 06/14/2024 10:25 AM EST 06/14/2024 10:26 AM EST Haja Byrens MD POINT OF CARE TEST O RDERABLES [facility] [place] [address] * Surgical Pathology (06/14/2024 9:53 AM EST) Case Report Surgical Pathology Report ? Case: [id number] ? Authorizing Provider: ??Bobby Loja MD ? Collected: ? 06/14/2024 0953 ? Ordering Location: ? Main Operating Room [facility] ?? Received: ?06/14/2024 1413 ? [facility] ? Pathologist: ? Sandra Salas MD ? Specimens: ?? A) - Soft Tissue Mass, mediastinal mass ? B) - Heart, Atrial Appendage, Left ? 06/18/2024 10:18 AM [facility] Final Diagnosis A. Soft Tissue Mass, Mediastinal Mass, Excision: - Atrophic thymic tissue B. Heart, Atrial Appendage, Left, Excision: - Mild myocyte hypertrophy 06/18/2024 10:18 AM [facility] Clinical Information A. Soft Tissue Mass, mediastinal mass Soft tissue mass Mediastinal mass B. Heart, Atrial Appendage, Left, *Other - as specified in Clinical Information MARIALUISA 06/18/2024 10:18 AM [facility] Gross Description A. Soft Tissue Mass, mediastinal mass. A - Labeled/Fixative : Mediastinal mass, fresh. Quantity/Size: Single, 7.2 x 5.3 x 1.2 cm. Tissue Description: Unoriented, intact portion of soft, rodriguez-yellow, lobulated tissue. The cut surface is homogenously pale-rodriguez, yellow and lobulated. No lesions or nodules are identified. Inking: External surface inked black Sections/Process ing: Knockout Worker sections in 4 cassettes labeled A1-A4. cmk B. Heart, Atrial Appendage, Left, . B - Labeled/Fixative : Heart, atrial appendage, left, fresh. Quantity/Size: Single, 3.3 x 1.5 x 0.8 cm. Tissue Description: Portion of heart tissue consisting of rodriguez-white, semitranslucent, smooth endocardium with rodriguez-brown muscular myocardium and thin translucent epicardium with adherent adipose tissue. No areas of discoloration identified. Sections/Process ing: Knockout Worker sections in 1 cassette labeled B1. cmk 06/18/2024 10:18 AM [facility] Result Note Routine 06/18/2024 10:18 AM [facility] Tissue SOFT TISSUE MASS / Unknown 06/14/2024 9:53 AM EST 06/14/2024 2:13 PM EST Comment:Mediastinal mass Tissue specimen (specimen) LEFT ATRIAL APPENDAGE ABSENT / Unknown 06/14/2024 10:54 AM EST 06/14/2024 2:13 PM EST Comment:MARIALUISA Bobby Loja MD PATHOLOGY/CYTOLOGY O RDERABLES [facility] [place] [address] * Cooximetry, POC (06/14/2024 9:00 AM EST) pO2, Coox 57 mmHg 06/14/2024 9:04 AM [facility] PO2 Corrected, COOX 50 mmHg 06/14/2024 9:04 AM [facility] Hemoglobin, Coox 14.3 13.7 - 16.5 g/dL 06/14/2024 9:04 AM [facility] Oxyhemoglobin, Coox 86.2 % 06/14/2024 9:04 AM [facility] Carboxyhemoglobi n, Coox 0.3 % 06/14/2024 9:04 AM EST [facility] Comment: Nonsmokers: 0.5-1.5% COHB ?? Smokers: Variable ??but usually less than 10% ?? Toxic: 20-30% COHB ?? Lethal: Greater than 60% COHB Methemoglobin, Coox 0.3 <=1.5 % 06/14/2024 9:04 AM EST [facility] Temperature Coox 35.2 C 06/14/20 24 9:04 AM EST [facility] Blood (Mixed Venous) 06/14/2024 9:00 AM EST 06/14/2024 9:04 AM EST Haja Byrnes MD POINT OF CARE TEST O RDERABLES [facility] [place] [address] * (ABNORMAL) Blood Gas, Arterial POC (06/14/2024 8:39 AM [facility]) pH, Arterial 7.37 7.35 - 7.45 06/14/2024 8:40 AM [facility] PCO2, Arterial 42 35 - 45 mmHg 06/14/2024 8:40 AM [facility] PO2, Arterial 341(H) 85 - 104 mmHg 06/14/2024 8:40 AM [facility] Bicarbonate, Arterial 23.7 20.0 - 26.0 mmol/L 06/14/2024 8:40 AM [facility] Base Excess, Arterial -1.6 -3.0 - 3.0 mmol/L 06/14/2024 8:40 AM [facility] Hemoglobin, Arterial 15.2 13.7 - 16.5 g/dL 06/14/2024 8:40 AM [facility] Oxyhemoglobin, Arterial 99.2(H) 94.0 - 97.0 % 06/14/2024 8:40 AM [facility] Carboxyhemoglobin , Arterial 0.1 % 06/14/2024 8:40 AM [facility] Comment: Nonsmokers: 0.5-1.5% COHB ?? Smokers: Variable ??but usually less than 10% ?? Toxic: 20-30% COHB ?? Lethal: Greater than 60% COHB Methemoglobin, Arterial 0.3 <=1.5 % 06/14/2024 8:40 AM [facility] Sodium, Arterial 136 135 - 145 mmol/L 06/14/2024 8:40 AM [facility] Potassium, Arterial 4.2 3.5 - 5.0 mmol/L 06/14/2024 8:40 AM [facility] Chloride, Arterial 102 98 - 107 mmol/L 06/14/2024 8:40 AM [facility] Lactate, Arterial 0.9 0.5 - 2.2 mmol/L 06/14/2024 8:40 AM [facility] IONIZED CALCIUM, ARTERIAL 1.17 1.15 - 1.33 mmol/L 06/14/2024 8:40 AM EST [facility] Glucose, Arterial 121 65 - 199 mg/dL 06/14/2024 8:40 AM EST [facility] Comment:Glucose Concentratio n >=200 mg/dL plus symptoms is consistent with Diabetes Mellitus. Blood ARTERIAL BLOOD / Unknown 06/14/2024 8:39 AM EST 06/14/2024 8:40 AM EST Haja Byrnes MD POINT OF CARE TEST O RDERABLES [facility] [place] [address] * Transesophageal Echo/OR (06/14/2024 7:20 AM EST) Anatomical Region Laterality Modality Cardiac Other 06/14/2024 7:20 AM EST Narrative 06/14/2024 4:36 PM EST Version: 2 Study ID: [id number] [address] [place] [address] ?OR Transesophageal Echo Report Name: TYSON GEORGE [...] of this mass after consultation with other drum printer experts and the decision was made by [...] MD - 06/14/2024 Version: 2 Study ID: [id number] [address] [place] [id number] ORTransesophageal Echo Report Name: GEORGE MEHTA Study Date: 06/14/2024,7: 20 AM Patient Location:^MI16^A : 1955 Age: 69 Years Gender: Male [...] of this mass after consultation with other drum printer experts and thedecision was made by surgeon [...] - 199 mg/dL 06/14/2024 7:12 AM EST [facility] Comment:Supplemental ranges: <140 mg/dL before meals <180 mg/dL all other times of the day. Blood CAPILLARY BLOOD / Unknown 06/14/2024 7:11 AM EST 06/14/2024 7:12 AM EST Haja Byrnes MD POINT OF CARE TEST O NIKA Performing Organization Address City/[facility]/ZIP Co de Phone Number [facility] [place] [address] * POC, GLUCOSE (06/14/2024 4:30 AM EST) Glucometer, POC 85 65 - 199 mg/dL 06/14/2024 4:30 AM EST [facility] Comment:Supplemental ranges: <140 mg/dL before meals <180 mg/dL all other times of the day. Blood CAPILLARY BLOOD / Unknown 06/14/2024 4:30 AM EST 06/14/2024 4:30 AM EST Haja Byrnes MD POINT OF CARE TEST O NIKA Performing Organization Address City/[facility]/ZIP Co de Phone Number [facility] [place] [address] * (ABNORMAL) Heparin (unfractionated) Level (06/14/2024 12:12 AM EST) UF Heparin 1.02(HHH) IU/mL 06/14/2024 12:46 AM [facility] Comment: Heparin (anti-Xa) levels [...] EST Shahnaz Scanlon MD HEMATOLOGY ORDERABLE S [facility] [place] [address] * (ABNORMAL) CBC (with Diff) (06/14/2024 12:12 AM EST) White Blood Cell 10.51(H) 4.00 - 9.50 x10(3)/mc L 06/14/2024 12:38 AM [facility] Red Blood Cell 4.99 4.58 - 5.54 x10(6)/mc L 06/14/2024 12:38 AM [facility] Hemoglobin 14.9 13.7 - 16.5 g/dL 06/14/2024 12:38 AM [facility] Hematocrit 45.9 40.5 - 48.5 % 06/14/2024 12:38 AM [facility] Mean Cell Volume 92.0 82.9 - 93.1 fL 06/14/2024 12:38 AM [facility] Mean Cell Hemoglobin 29.9 27.5 - 32.1 pg 06/14/2024 12:38 AM [facility] Mean Cell Hemoglobin Concentration 32.5 32.0 - 35.7 g/dL 06/14/2024 12:38 AM [facility] Platelet 162 145 - 357 x10(3)/mc L 06/14/2024 12:38 AM [facility] Mean Platelet Volume 10.1 7.6 - 12.9 fL 06/14/2024 12:38 AM [facility] RDW Standard Deviation 46.9(H) 36.0 - 45.0 fL 06/14/2024 12:38 AM [facility] RDW coefficient of variation 13.8 11.4 - 13.8 % 06/14/2024 12:38 AM [facility] NRBC% auto 0.0 % 06/14/2024 12:38 AM [facility] NRBC Absolute <0.01 <0.01 x10(3)/mc L 06/14/2024 12:38 AM [facility] Neutrophil % 56.7 % 06/14/2024 12:38 AM [facility] Neutrophil Absolute (ANC) - Automated 5.96 1.70 - 6.10 x10(3)/mc L 06/14/2024 12:38 AM [facility] Lymph % 26.8 % 06/14/2024 12:38 AM [facility] Lymph Absolute 2.82 0.90 - 3.20 x10(3)/mc L 06/14/2024 12:38 AM [facility] Monocyte % 11.2 % 06/14/2024 12:38 AM [facility] Monocyte Absolute 1.18(H) 0.30 - 0.90 x10(3)/mc L 06/14/2024 12:38 AM [facility] Eos % 3.9 % 06/14/2024 12:38 AM [facility] Eos Absolute 0.41(H) 0.00 - 0.40 x10(3)/mc L 06/14/2024 12:38 AM EST [facility] Basophil % 0.8 % 06/14/2024 12:38 AM EST [facility] Baso Absolute 0.08 0.00 - 0.10 x10(3)/mc L 06/14/2024 12:38 AM EST [facility] Immature Gran % 0.6 % 12:38 AM EST [facility] Immature Gran Absolute 0.06(H) 0.00 - 0.04 x10(3)/mc L 06/14/2024 12:38 AM EST [facility] Blood VENOUS BLOOD SPECIMEN / Unknown Venipuncture / Unknown 06/14/2024 12:12 AM EST 06/14/2024 12:29 AM EST Shahnaz Scanlon MD HEMATOLOGY ORDERABLE S [facility] [place] [address] * Magnesium (06/14/2024 12:12 AM EST) Magnesium 0.74 0.69 - 1.07 mMol/L 06/14/2024 12:57 AM EST [facility] Blood VENOUS BLOOD SPECIMEN / Unknown Venipuncture / Unknown 06/14/2024 12:12 AM EST 06/14/2024 12:29 AM EST Shahnaz Scanlon MD CHEMISTRY ORDERABLES [facility] [place] [address] * (ABNORMAL) Basic Metabolic Panel (06/14/2024 12:12 AM EST) Glucose 97 65 - 199 mg/dL 06/14/2024 12:57 AM EST [facility] Comment:Glucose Concentratio n >=200 mg/dL plus symptoms is consistent with Diabetes Mellitus. Blood Urea Nitrogen 25(H) 10 - 20 mg/dL 06/14/2024 12:57 AM [facility] Creatinine 1.14 0.80 - 1.50 mg/dL 06/14/2024 12:57 AM [facility] Sodium 135 135 - 145 mMol/L 06/14/2024 12:57 AM [facility] Potassium 4.1 3.5 - 5.0 mMol/L 06/14/2024 12:57 AM [facility] Chloride 100 98 - 107 mMol/L 06/14/2024 12:57 AM [facility] Carbon Dioxide 25 22 - 31 mMol/L 06/14/2024 12:57 AM [facility] Anion Gap 10 5 - 15 mMol/L 06/14/2024 12:57 AM [facility] Calcium 9.5 8.5 - 10.5 mg/dL 06/14/2024 12:57 AM [facility] Est Glomerular Filtration Rate - Male 70 mL/min/1. 73 m?? 06/14/2024 12:57 AM [facility] Comment: This patient's estimated [...] AM EST Shahnaz Scanlon MD CHEMISTRY ORDERABLES [facility] [place] [address] * Scan Doc: Implantable Devices (06/14/2024 12:00 AM EST) Narrative 06/14/2024 12:00 AM EST Ordered by an unspecified provider. Scanning Provider MEDIA MGR SCAN EXT O RDR/RSLT * POC, GLUCOSE (06/13/2024 11:12 PM EST) Glucometer, POC 104 65 - 199 mg/dL 06/13/2024 11:13 PM EST [facility] Comment:Supplemental ranges: <140 mg/dL before meals <180 mg/dL all other times of the day. Blood CAPILLARY BLOOD / Unknown 06/13/2024 11:12 PM EST 06/13/2024 11:13 PM EST Haja Byrnes MD POINT OF CARE TEST O NIKA Performing Organization Address City/[facility]/ZIP Co de Phone Number [facility] [place] [address] * (ABNORMAL) POC, GLUCOSE (06/13/2024 8:03 PM EST) Glucometer, POC 206(H) 65 - 199 mg/dL 06/13/2024 8:03 PM EST [facility] Comment:Supplemental ranges: <140 mg/dL before meals <180 mg/dL all other times of the day. Blood CAPILLARY BLOOD / Unknown 06/13/2024 8:03 PM EST 06/13/2024 8:03 PM EST Haja Byrnes MD POINT OF CARE TEST O NIKA Performing Organization Address City/[facility]/ZIP Co de Phone Number [facility] [place] [address] * Heparin (unfractionated) Level (06/13/2024 4:11 PM EST) UF Heparin 0.76 IU/mL 06/13/2024 4:24 PM EST [facility] Comment: Heparin (anti-Xa) levels should [...] MD HEMATOLOGY ORDERABLE S Performing Organization Address City/[facility]/ZIP Co de Phone Number [facility] [place] [address] * ABORH RECHECK (06/13/2024 4:11 PM EST) [facility] ABORH Recheck O POSITIVE 06/13/2024 4:50 PM EST [facility] Blood VENOUS BLOOD SPECIMEN / Unknown Venipuncture / Unknown 06/13/2024 4:11 PM EST 06/13/2024 4:19 PM EST Haja Byrnes MD BLOOD BANK LAB ORDER EUSEBIA Performing Organization Address City/[facility] Co de Phone Number [facility] [place] [address] * (ABNORMAL) POC, GLUCOSE (06/13/2024 4:09 PM EST) [facility] Glucometer, POC 216(H) 65 - 199 mg/dL 06/13/2024 4:10 PM EST [facility] Comment:Supplemental ranges: <140 mg/dL before meals <180 mg/dL all other times of the day. Blood CAPILLARY BLOOD / Unknown 06/13/2024 4:09 PM EST 06/13/2024 4:10 PM EST Haja Byrnes MD POINT OF CARE TEST O RDERABLES [facility] [place] [address] * Type and screen ([facility]/CGP/RAFITA) (06/13/2024 11:53 AM EST) Pathologist [facility] ABORH Type O POSITIVE 06/13/2024 1:16 PM EST [facility] PATIENT HISTORY Not Found 06/13/2024 1:16 PM EST [facility] Expires at [id number] on: 06/16/2024 06/13/2024 1:16 PM EST [facility] ANTIBODY SCREEN AUTOMATED Negative 06/13/2024 1:16 PM EST [facility] T&S only valid at [facility] 06/13/2024 1:16 PM EST [facility] Blood VENOUS BLOOD SPECIMEN / Unknown Venipuncture / Unknown 06/13/2024 11:53 AM EST 06/13/2024 11:56 AM EST Narrative [facility] - 06/13/2024 1:16 PM EST This Type and Screen result is only valid at the [facility] Haja Byrnes MD BLOOD BANK LAB ORDER EUSEBIA Performing Organization Address City/[facility]/ZIP Co de Phone Number [facility] [place] [address] * POC, GLUCOSE (06/13/2024 11:50 AM EST) [facility] Glucometer, POC 178 65 - 199 mg/dL 06/13/2024 11:51 AM EST [facility] Comment:Supplemental ranges: <140 mg/dL before meals <180 mg/dL all other times of the day. Blood CAPILLARY BLOOD / Unknown 06/13/2024 11:50 AM EST 06/13/2024 11:51 AM EST Haja Byrnes MD POINT OF CARE TEST O RDERABLES [facility] [place] [address] * XR Chest One View (06/13/2024 10:35 AM EST) WORKSTATION ID [id number] RAD Anatomical Region Laterality Modality Chest N/A [...] who have questions please contact the health rn progressive care unit that requested your imaging first. ? Electronically signed by: Jyothi Simon MD, [facility] ([phone]), at 06/13/2024 10:43 AM Narrative 06/13/2024 10:43 [...] patients who have questions please contactthe health rn progressive care unit that requested your imaging first. Electronically signed by: Jyothi Simon MD, [facility]([phone]), at 06/13/2024 10:43 AM Haja Byrnes MD IMG DX ORDERABLES * CARDIAC CATHETERIZATION (06/13/2024 9:02 AM EST) Anatomical Region Laterality Modality Other Narrative 06/15/2024 9:07 AM EST ?[facility] ? Cardiac Catheterization/Intervention Report ? Patient Name: Tyson, George L. ? Procedure Date: 06/13/2024 ? A #: [id number] ? Primary Physician: Nuha Shen I ? Case #: [id number] ? File Name: [id number] ? Catheterization Order Number: [id number] ? [facility] ? Final Report [place], [place] ? Patient Name: ? George L. Tyson ? ID#: ?[id number] ? : ?1955 ? Procedure Date: ? June 13, 2024 ?Case #: ? [id number] ? Room: ? 6 ? Case Physician: [...] ?was designated as ASA Class IV. The [facility] clinical frailty scale is 5: ?Mildly [...] procedure was Urgent. The indication for ?the catheterization laboratory technician visit is ACS greater than [...] angiography, vascular ?ultrasound and IABP insertion in catheterization laboratory technician. ? Nuha Shen, M.D. ? Electronically Signed by: Nuha Shen, M.D. ? Report Finalized: 06/15/2024 ??08:59 ? Procedure Note Nuha Shen MD - 06/15/2024 [facility] Cardiac Catheterization/Intervention Report Patient Name: George Mehta Procedure Date: 06/13/2024 A #: [id number] Primary Physician: Nuha Shen I Case #: [id number] File Name: [id number] Catheterization Order Number: [id number] [facility] FinalReport [place], [place] Patient Name: George Mehta ID#:[id number] :1955 Procedure Date: June 13, 2024 Case [...] was designated as ASA Class IV. The [facility] clinical frailty scale is5: Mildly Frail. 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 LV ejection fraction within 6 months is 25%. Electrocardiography: EKG was assessed by ECG. EKG was Abnormal. EKG showed other abnormality. Medications Prior to Procedure: Sacubitril and Valsartan, Aspirin, Beta Reik and Statin. Indications for Diagnostic Cath: The priority of the diagnostic procedure was Urgent. The indicationfor the catheterization laboratory technician visit is ACS greater than [...] site angiography,vascular ultrasound and IABP insertion in catheterization laboratory technician. Nuha Shen M.D. Electronically Signed by: Nuha Shen M.D. Report Finalized: 06/15/2024 08:59 Nuha Rojo MD CARDIAC CATH ORDERA BLES * Potassium (06/13/2024 7:48 AM EST) [facility] Potassium 4.5 3.5 - 5.0 mMol/L 06/13/2024 8:28 AM EST [facility] Blood VENOUS BLOOD SPECIMEN / Unknown Venipuncture / Unknown 06/13/2024 7:48 AM EST 06/13/2024 7:55 AM EST Shahnaz Scanlon MD CHEMISTRY ORDERABLES Performing Organization Address City/[facility]/ZIP Co de Phone Number [facility] [place] [address] * POC, GLUCOSE (06/13/2024 7:41 AM EST) Glucometer, POC 126 65 - 199 mg/dL 06/13/2024 7:41 AM EST [facility] Comment:Supplemental ranges: <140 mg/dL before meals <180 mg/dL all other times of the day. Blood CAPILLARY BLOOD / Unknown 06/13/2024 7:41 AM EST 06/13/2024 7:41 AM EST Ethel Carrillo MD POINT OF CARE TEST O RDERABLES Performing Organization Address City/[facility]/ZIP Co de Phone Number [facility] [place] [address] * POC, GLUCOSE (06/13/2024 3:25 AM EST) Glucometer, POC 99 65 - 199 mg/dL 06/13/2024 3:25 AM EST [facility] Comment:Supplemental ranges: <140 mg/dL before meals <180 mg/dL all other times of the day. Blood CAPILLARY BLOOD / Unknown 06/13/2024 3:25 AM EST 06/13/2024 3:25 AM EST Ethel Carrillo MD POINT OF CARE TEST O RDERABLES Performing Organization Address [facility] de Phone Number [facility] [place] [address] * Heparin (unfractionated) Level (06/13/2024 2:26 AM EST) Pathologist [facility] UF Heparin 0.60 IU/mL 06/13/2024 3:32 AM EST [facility] Comment: Heparin (anti-Xa) levels should [...] MD HEMATOLOGY ORDERABLE S Performing Organization Address City/[facility]/ZIP Co de Phone Number [facility] [place] [address] * (ABNORMAL) CBC (with Diff) (06/13/2024 2:26 AM EST) White Blood Cell 9.98(H) 4.00 - 9.50 x10(3)/mc L 06/13/2024 2:41 AM [facility] Red Blood Cell 5.11 4.58 - 5.54 x10(6)/mc L 06/13/2024 2:41 AM [facility] Hemoglobin 15.3 13.7 - 16.5 g/dL 06/13/2024 2:41 AM [facility] Hematocrit 47.1 40.5 - 48.5 % 06/13/2024 2:41 AM [facility] Mean Cell Volume 92.2 82.9 - 93.1 fL 06/13/2024 2:41 AM [facility] Mean Cell Hemoglobin 29.9 27.5 - 32.1 pg 06/13/2024 2:41 AM [facility] Mean Cell Hemoglobin Concentration 32.5 32.0 - 35.7 g/dL 06/13/2024 2:41 AM [facility] Platelet 194 145 - 357 x10(3)/mc L 06/13/2024 2:41 AM [facility] Mean Platelet Volume 9.7 7.6 - 12.9 fL 06/13/2024 2:41 AM [facility] RDW Standard Deviation 47.5(H) 36.0 - 45.0 fL 06/13/2024 2:41 AM [facility] RDW coefficient of variation 13.8 11.4 - 13.8 % 06/13/2024 2:41 AM [facility] NRBC% auto 0.0 % 06/13/2024 2:41 AM [facility] NRBC Absolute <0.01 <0.01 x10(3)/mc L 06/13/2024 2:41 AM [facility] Neutrophil % 48.8 % 06/13/2024 2:41 AM [facility] Neutrophil Absolute (ANC) - Automated 4.87 1.70 - 6.10 x10(3)/mc L 06/13/2024 2:41 AM [facility] Lymph % 35.3 % 06/13/2024 2:41 AM [facility] Lymph Absolute 3.52(H) 0.90 - 3.20 x10(3)/mc L 06/13/2024 2:41 AM [facility] Monocyte % 10.1 % 06/13/2024 2:41 AM [facility] Monocyte Absolute 1.01(H) 0.30 - 0.90 x10(3)/mc L 06/13/2024 2:41 AM [facility] Eos % 4.4 % 06/13/2024 2:41 AM [facility] Eos Absolute 0.44(H) 0.00 - 0.40 x10(3)/mc L 06/13/2024 2:41 AM [facility] Basophil % 0.9 % 06/13/2024 2:41 AM [facility] Baso Absolute 0.09 0.00 - 0.10 x10(3)/mc L 06/13/2024 2:41 AM [facility] Immature Gran % 0.5 % 2:41 AM [facility] Immature Gran Absolute 0.05(H) 0.00 - 0.04 x10(3)/mc L 06/13/2024 2:41 AM [facility] Blood VENOUS BLOOD SPECIMEN / Unknown Venipuncture / Unknown 06/13/2024 2:26 AM EST 06/13/2024 2:32 AM EST Shahnaz Scanlon MD HEMATOLOGY ORDERABLE S [facility] [place] [address] * Magnesium (06/13/2024 2:26 AM EST) Magnesium 0.78 0.69 - 1.07 mMol/L 06/13/2024 2:58 AM [facility] Blood VENOUS BLOOD SPECIMEN / Unknown Venipuncture / Unknown 06/13/2024 2:26 AM EST 06/13/2024 2:31 AM EST Shahnaz Scanlon MD CHEMISTRY ORDERABLES [facility] [place] [address] * (ABNORMAL) Basic Metabolic Panel (06/13/2024 2:26 AM EST) Glucose 121 65 - 199 mg/dL 06/13/2024 2:58 AM [facility] Comment:Glucose Concentratio n >=200 mg/dL plus symptoms is consistent with Diabetes Mellitus. Blood Urea Nitrogen 21(H) 10 - 20 mg/dL 06/13/2024 2:58 AM [facility] Creatinine 1.07 0.80 - 1.50 mg/dL 06/13/2024 2:58 AM [facility] Sodium 136 135 - 145 mMol/L 06/13/2024 2:58 AM [facility] Potassium 3.9 3.5 - 5.0 mMol/L 06/13/2024 2:58 AM [facility] Chloride 99 98 - 107 mMol/L 06/13/2024 2:58 AM [facility] Carbon Dioxide 27 22 - 31 mMol/L 06/13/2024 2:58 AM [facility] Anion Gap 10 5 - 15 mMol/L 06/13/2024 2:58 AM [facility] Calcium 9.7 8.5 - 10.5 mg/dL 06/13/2024 2:58 AM [facility] Est Glomerular Filtration Rate - Male 76 mL/min/1. 73 m?? 06/13/2024 2:58 AM EST [facility] Comment: This patient's estimated GFR [...] Scanlon MD CHEMISTRY ORDERABLES Performing Organization Address City/[facility]/ZIP Co de Phone Number [facility] [place] [address] * POC, GLUCOSE (06/12/2024 11:53 PM EST) Glucometer, POC 141 65 - 199 mg/dL 06/12/2024 11:54 PM EST [facility] Comment:Supplemental ranges: <140 mg/dL before meals <180 mg/dL all other times of the day. Blood CAPILLARY BLOOD / Unknown 06/12/2024 11:53 PM EST 06/12/2024 11:54 PM EST Ethel Carrillo MD POINT OF CARE TEST O RDERABLES [facility] [place] [address] * POC, GLUCOSE (06/12/2024 7:32 PM EST) Glucometer, POC 158 65 - 199 mg/dL 06/12/2024 7:32 PM EST [facility] Comment:Supplemental ranges: <140 mg/dL before meals <180 mg/dL all other times of the day. Blood CAPILLARY BLOOD / Unknown 06/12/2024 7:32 PM EST 06/12/2024 7:32 PM EST Ethel Carrillo MD POINT OF CARE TEST O NIKA Performing Organization Address City/[facility]/ZIP Co de Phone Number [facility] [place] [address] * POC, GLUCOSE (06/12/2024 3:41 PM EST) Glucometer, POC 113 65 - 199 mg/dL 06/12/2024 3:41 PM EST [facility] Comment:Supplemental ranges: <140 mg/dL before meals <180 mg/dL all other times of the day. Blood CAPILLARY BLOOD / Unknown 06/12/2024 3:41 PM EST 06/12/2024 3:41 PM EST Ethel Carrillo MD POINT OF CARE TEST Abimael MAHER Performing Organization Address [facility]/ZIP Co de Phone Number [facility] [place] [address] * Potassium (06/12/2024 2:19 PM EST) [facility] Potassium 4.5 3.5 - 5.0 mMol/L 06/12/2024 2:45 PM EST [facility] Blood VENOUS BLOOD SPECIMEN / Unknown Venipuncture / Unknown 06/12/2024 2:19 PM EST 06/12/2024 2:23 PM EST Shahnaz Scanlon MD CHEMISTRY ORDERABLES Performing Organization Address City/[facility]/ZIP Co de Phone Number [facility] [place] [address] * (ABNORMAL) POC, GLUCOSE (06/12/2024 11:21 AM EST) Glucometer, POC 207(H) 65 - 199 mg/dL 06/12/2024 11:21 AM EST [facility] Comment:Supplemental ranges: <140 mg/dL before meals <180 mg/dL all other times of the day. Blood CAPILLARY BLOOD / Unknown 06/12/2024 11:21 AM EST 06/12/2024 11:22 AM EST Ethel Carrillo MD POINT OF CARE TEST O NIKA Performing Organization Address City/[facility]/ZIP Co de Phone Number [facility] [place] [address] * POC, GLUCOSE (06/12/2024 8:00 AM EST) Glucometer, POC 169 65 - 199 mg/dL 06/12/2024 8:01 AM EST [facility] [facility] Comment:Supplemental ranges: <140 mg/dL before meals <180 mg/dL all other times of the day. Blood CAPILLARY BLOOD / Unknown 06/12/2024 8:00 AM EST 06/12/2024 8:01 AM EST Ethel Carrillo MD POINT OF CARE TEST O NIKA Performing Organization Address City/[facility]/ZIP Co de Phone Number [facility] [place] [address] * POC, GLUCOSE (06/12/2024 4:25 AM EST) Glucometer, POC 132 65 - 199 mg/dL 06/12/2024 4:26 AM EST [facility] Comment:Supplemental ranges: <140 mg/dL before meals <180 mg/dL all other times of the day. Blood CAPILLARY BLOOD / Unknown 06/12/2024 4:25 AM EST 06/12/2024 4:26 AM EST Ethel Carrillo MD POINT OF CARE TEST O NIKA [facility] [place] [address] * Heparin (unfractionated) Level (06/12/2024 3:03 AM EST) UF Heparin 0.55 IU/mL 06/12/2024 3:44 AM EST [facility] Comment: Heparin (anti-Xa) levels should [...] MD HEMATOLOGY ORDERABLE S Performing Organization Address City/State/[facility] Co de Phone Number [facility] [place] [address] * (ABNORMAL) CBC (with Diff) (06/12/2024 3:03 AM EST) Pathologist [facility] White Blood Cell 9.69(H) 4.00 - 9.50 x10(3)/mc L 06/12/2024 3:36 AM EST [facility] Red Blood Cell 5.05 4.58 - 5.54 x10(6)/mc L 06/12/2024 3:36 AM EST [facility] Hemoglobin 15.2 13.7 - 16.5 g/dL 06/12/2024 3:36 AM [facility] Hematocrit 46.6 40.5 - 48.5 % 06/12/2024 3:36 AM [facility] Mean Cell Volume 92.3 82.9 - 93.1 fL 06/12/2024 3:36 AM [facility] Mean Cell Hemoglobin 30.1 27.5 - 32.1 pg 06/12/2024 3:36 AM [facility] Mean Cell Hemoglobin Concentration 32.6 32.0 - 35.7 g/dL 06/12/2024 3:36 AM [facility] Platelet 194 145 - 357 x10(3)/mc L 06/12/2024 3:36 AM [facility] Mean Platelet Volume 10.1 7.6 - 12.9 fL 06/12/2024 3:36 AM [facility] RDW Standard Deviation 47.7(H) 36.0 - 45.0 fL 06/12/2024 3:36 AM [facility] RDW coefficient of variation 14.0(H) 11.4 - 13.8 % 06/12/2024 3:36 AM [facility] NRBC% auto 0.0 % 06/12/2024 3:36 AM [facility] NRBC Absolute <0.01 <0.01 x10(3)/mc L 06/12/2024 3:36 AM [facility] Neutrophil % 49.9 % 06/12/2024 3:36 AM [facility] Neutrophil Absolute (ANC) - Automated 4.82 1.70 - 6.10 x10(3)/mc L 06/12/2024 3:36 AM [facility] Lymph % 33.5 % 06/12/2024 3:36 AM [facility] Lymph Absolute 3.25(H) 0.90 - 3.20 x10(3)/mc L 06/12/2024 3:36 AM [facility] Monocyte % 11.1 % 06/12/2024 3:36 AM [facility] Monocyte Absolute 1.08(H) 0.30 - 0.90 x10(3)/mc L 06/12/2024 3:36 AM [facility] Eos % 4.1 % 06/12/2024 3:36 AM [facility] Eos Absolute 0.40 0.00 - 0.40 x10(3)/mc L 06/12/2024 3:36 AM [facility] Basophil % 0.8 % 06/12/2024 3:36 AM [facility] Baso Absolute 0.08 0.00 - 0.10 x10(3)/mc L 06/12/2024 3:36 AM [facility] Immature Gran % 0.6 % 3:36 AM [facility] Immature Gran Absolute 0.06(H) 0.00 - 0.04 x10(3)/mc L 06/12/2024 3:36 AM [facility] Blood VENOUS BLOOD SPECIMEN / Unknown Venipuncture / Unknown 06/12/2024 3:03 AM EST 06/12/2024 3:30 AM EST Shahnaz Scanlon MD HEMATOLOGY ORDERABLE S [facility] [place] [address] * Magnesium (06/12/2024 3:03 AM EST) Magnesium 0.79 0.69 - 1.07 mMol/L 06/12/2024 4:01 AM [facility] Blood VENOUS BLOOD SPECIMEN / Unknown Venipuncture / Unknown 06/12/2024 3:03 AM EST 06/12/2024 3:30 AM EST Shahnaz Scanlon MD CHEMISTRY ORDERABLES [facility] [place] [address] * (ABNORMAL) Basic Metabolic Panel (06/12/2024 3:03 AM EST) Glucose 132 65 - 199 mg/dL 06/12/2024 4:01 AM [facility] Comment:Glucose Concentratio n >=200 mg/dL plus symptoms is consistent with Diabetes Mellitus. Blood Urea Nitrogen 23(H) 10 - 20 mg/dL 06/12/2024 4:01 AM [facility] Creatinine 1.15 0.80 - 1.50 mg/dL 06/12/2024 4:01 AM [facility] Sodium 138 135 - 145 mMol/L 06/12/2024 4:01 AM [facility] Potassium 3.8 3.5 - 5.0 mMol/L 06/12/2024 4:01 AM [facility] Chloride 98 98 - 107 mMol/L 06/12/2024 4:01 AM [facility] Carbon Dioxide 29 22 - 31 mMol/L 06/12/2024 4:01 AM [facility] Anion Gap 11 5 - 15 mMol/L 06/12/2024 4:01 AM [facility] Calcium 9.5 8.5 - 10.5 mg/dL 06/12/2024 4:01 AM [facility] Est Glomerular Filtration Rate - Male 70 mL/min/1. 73 m?? 06/12/2024 4:01 AM [facility] Comment: This patient's estimated [...] AM EST Shahnaz Scanlon MD CHEMISTRY ORDERABLES [facility] [place] [address] * POC, GLUCOSE (06/11/2024 11:56 PM EST) Glucometer, POC 135 65 - 199 mg/dL 06/11/2024 11:56 PM EST [facility] Comment:Supplemental ranges: <140 mg/dL before meals <180 mg/dL all other times of the day. Blood CAPILLARY BLOOD / Unknown 06/11/2024 11:56 PM EST 06/11/2024 11:56 PM EST Ethel Carrillo MD POINT OF CARE TEST O RDERAPIETER Performing Organization Address [facility] de Phone Number [facility] [place] [address] * (ABNORMAL) POC, GLUCOSE (06/11/2024 8:25 PM EST) Glucometer, POC 210(H) 65 - 199 mg/dL 06/11/2024 8:26 PM EST [facility] Comment:Supplemental ranges: <140 mg/dL before meals <180 mg/dL all other times of the day. Blood CAPILLARY BLOOD / Unknown 06/11/2024 8:25 PM EST 06/11/2024 8:26 PM EST Ethel Carrillo MD POINT OF CARE TEST O NIKA Performing Organization Address [facility] Co de Phone Number [facility] [place] [address] * POC, GLUCOSE (06/11/2024 4:24 PM EST) Glucometer, POC 81 65 - 199 mg/dL 06/11/2024 4:24 PM EST [facility] Comment:Supplemental ranges: <140 mg/dL before meals <180 mg/dL all other times of the day. Blood CAPILLARY BLOOD / Unknown 06/11/2024 4:24 PM EST 06/11/2024 4:25 PM EST Ethel Carrillo MD POINT OF CARE TEST O NIKA Performing Organization Address [facility] de Phone Number [facility] [place] [address] * (ABNORMAL) POC, GLUCOSE (06/11/2024 11:08 AM EST) Glucometer, POC 233(H) 65 - 199 mg/dL 06/11/2024 11:08 AM EST [facility] Comment:Supplemental ranges: <140 mg/dL before meals <180 mg/dL all other times of the day. Blood CAPILLARY BLOOD / Unknown 06/11/2024 11:08 AM EST 06/11/2024 11:08 AM EST Ethel Carrillo MD POINT OF CARE TEST O NIKA Performing Organization Address [facility] de Phone Number [facility] [place] [address] * POC, GLUCOSE (06/11/2024 7:48 AM EST) Glucometer, POC 184 65 - 199 mg/dL 06/11/2024 7:49 AM EST [facility] Comment:Supplemental ranges: <140 mg/dL before meals <180 mg/dL all other times of the day. Blood CAPILLARY BLOOD / Unknown 06/11/2024 7:48 AM EST 06/11/2024 7:49 AM EST Melida Valdes MD POINT OF CARE TEST O NIKA Performing Organization Address [facility] Co de Phone Number [facility] [place] [address] * Heparin (unfractionated) Level (06/11/2024 5:31 AM EST) UF Heparin 0.55 IU/mL 06/11/2024 6:10 AM EST [facility] Comment: Heparin (anti-Xa) levels should [...] MD HEMATOLOGY ORDERABLE S Performing Organization Address [facility] Co de Phone Number [facility] [place] [address] * POC, GLUCOSE (06/11/2024 3:57 AM EST) Glucometer, POC 132 65 - 199 mg/dL 06/11/2024 3:58 AM EST [facility] Comment:Supplemental ranges: <140 mg/dL before meals <180 mg/dL all other times of the day. Blood CAPILLARY BLOOD / Unknown 06/11/2024 3:57 AM EST 06/11/2024 3:58 AM EST Melida Valdes MD POINT OF CARE TEST O RDERABLES Performing Organization Address [facility] Co de Phone Number [facility] [place] [address] * (ABNORMAL) CBC (with Diff) (06/11/2024 2:13 AM EST) White Blood Cell 9.91(H) 4.00 - 9.50 x10(3)/mc L 06/11/2024 2:26 AM [facility] Red Blood Cell 5.13 4.58 - 5.54 x10(6)/mc L 06/11/2024 2:26 AM [facility] Hemoglobin 15.3 13.7 - 16.5 g/dL 06/11/2024 2:26 AM [facility] Hematocrit 47.5 40.5 - 48.5 % 06/11/2024 2:26 AM [facility] Mean Cell Volume 92.6 82.9 - 93.1 fL 06/11/2024 2:26 AM [facility] Mean Cell Hemoglobin 29.8 27.5 - 32.1 pg 06/11/2024 2:26 AM [facility] Mean Cell Hemoglobin Concentration 32.2 32.0 - 35.7 g/dL 06/11/2024 2:26 AM [facility] Platelet 184 145 - 357 x10(3)/mc L 06/11/2024 2:26 AM [facility] Mean Platelet Volume 9.7 7.6 - 12.9 fL 06/11/2024 2:26 AM [facility] RDW Standard Deviation 48.0(H) 36.0 - 45.0 fL 06/11/2024 2:26 AM [facility] RDW coefficient of variation 14.0(H) 11.4 - 13.8 % 06/11/2024 2:26 AM [facility] NRBC% auto 0.0 % 06/11/2024 2:26 AM [facility] NRBC Absolute <0.01 <0.01 x10(3)/mc L 06/11/2024 2:26 AM [facility] Neutrophil % 50.3 % 06/11/2024 2:26 AM [facility] Neutrophil Absolute (ANC) - Automated 4.98 1.70 - 6.10 x10(3)/mc L 06/11/2024 2:26 AM [facility] Lymph % 33.5 % 06/11/2024 2:26 AM EST [facility] Lymph Absolute 3.32(H) 0.90 - 3.20 x10(3)/mc L 06/11/2024 2:26 AM EST [facility] Monocyte % 10.9 % 06/11/2024 2:26 AM [facility] Monocyte Absolute 1.08(H) 0.30 - 0.90 x10(3)/mc L 06/11/2024 2:26 AM EST [facility] Eos % 4.1 % 06/11/2024 2:26 AM [facility] Eos Absolute 0.41(H) 0.00 - 0.40 x10(3)/mc L 06/11/2024 2:26 AM [facility] Basophil % 0.7 % 06/11/2024 2:26 AM [facility] Baso Absolute 0.07 0.00 - 0.10 x10(3)/mc L 06/11/2024 2:26 AM [facility] Immature Gran % 0.5 % 2:26 AM [facility] Immature Gran Absolute 0.05(H) 0.00 - 0.04 x10(3)/mc L 06/11/2024 2:26 AM [facility] Blood VENOUS BLOOD SPECIMEN / Unknown Venipuncture / Unknown 06/11/2024 2:13 AM EST 06/11/2024 2:19 AM EST Shahnaz Scanlon MD HEMATOLOGY ORDERABLE S [facility] [place] [address] * Magnesium (06/11/2024 2:13 AM EST) Magnesium 0.83 0.69 - 1.07 mMol/L 06/11/2024 2:51 AM [facility] Blood VENOUS BLOOD SPECIMEN / Unknown Venipuncture / Unknown 06/11/2024 2:13 AM EST 06/11/2024 2:19 AM EST Shahnaz Scanlon MD CHEMISTRY ORDERABLES [facility] [place] [address] * (ABNORMAL) Basic Metabolic Panel (06/11/2024 2:13 AM EST) Glucose 148 65 - 199 mg/dL 06/11/2024 2:51 AM EST [facility] Comment:Glucose Concentratio n >=200 mg/dL plus symptoms is consistent with Diabetes Mellitus. Blood Urea Nitrogen 24(H) 10 - 20 mg/dL 06/11/2024 2:51 AM [facility] Creatinine 1.06 0.80 - 1.50 mg/dL 06/11/2024 2:51 AM [facility] Sodium 134(L) 135 - 145 mMol/L 06/11/2024 2:51 AM EST [facility] Potassium 4.1 3.5 - 5.0 mMol/L 06/11/2024 2:51 AM [facility] Chloride 96(L) 98 - 107 mMol/L 06/11/2024 2:51 AM [facility] Carbon Dioxide 28 22 - 31 mMol/L 06/11/2024 2:51 AM EST [facility] Anion Gap 10 5 - 15 mMol/L 06/11/2024 2:51 AM [facility] Calcium 9.4 8.5 - 10.5 mg/dL 06/11/2024 2:51 AM EST [facility] Est Glomerular Filtration Rate - Male 77 mL/min/1. 73 m?? 06/11/2024 2:51 AM [facility] Comment: This patient's estimated [...] Scanlon MD CHEMISTRY ORDERABLES Performing Organization Address [facility] Co de Phone Number [facility] [place] [address] * POC, GLUCOSE (06/11/2024 12:50 AM EST) Glucometer, POC 144 65 - 199 mg/dL 06/11/2024 12:51 AM EST [facility] Comment:Supplemental ranges: <140 mg/dL before meals <180 mg/dL all other times of the day. Blood CAPILLARY BLOOD / Unknown 06/11/2024 12:50 AM EST 06/11/2024 12:51 AM EST Melida Valdes MD POINT OF CARE TEST O RDERAPIETER Performing Organization Address [facility] Co de Phone Number [facility] [place] [address] * (ABNORMAL) POC, GLUCOSE (06/10/2024 7:22 PM EST) Glucometer, POC 236(H) 65 - 199 mg/dL 06/10/2024 7:22 PM EST [facility] Comment:Supplemental ranges: <140 mg/dL before meals <180 mg/dL all other times of the day. Blood CAPILLARY BLOOD / Unknown 06/10/2024 7:22 PM EST 06/10/2024 7:22 PM EST Melida Valdes MD POINT OF CARE TEST O RDERABLES [facility] [place] [address] * (ABNORMAL) Blood Gas, Venous (06/10/2024 5:42 PM EST) pH, Venous 7.34 7.32 - 7.42 06/10/2024 5:50 PM EST [facility] PCO2, Venous 52 38 - 58 mmHg 06/10/2024 5:50 PM EST [facility] PO2, Venous 24 16 - 65 mmHg 06/10/2024 5:50 PM EST [facility] Bicarbonate, Venous 27.4 22 - 31 mmol/L 06/10/2024 5:50 PM [facility] Base Excess, Venous 1.7(L) 1.9 - 4.5 mmol/L 06/10/2024 5:50 PM [facility] Hemoglobin, Venous 16.8(H) 13.7 - 16.5 g/dL 06/10/2024 5:50 PM [facility] Oxyhemoglobin, Venous 39.0 % 06/10/2024 5:50 PM [facility] Carboxyhemoglobin , Venous 0.3 % 06/10/2024 5:50 PM [facility] Comment: Nonsmokers: 0.5-1.5% COHB ?? Smokers: Variable ??but usually less than 10% ?? Toxic: 20-30% COHB ?? Lethal: Greater than 60% COHB Methemoglobin, Venous 0.5 <=1.5 % 06/10/2024 5:50 PM EST [facility] Sodium, Venous 137 135 - 145 mmol/L 06/10/2024 5:50 PM EST [facility] Chloride, Venous 96(L) 98 - 107 mmol/L 06/10/2024 5:50 PM EST [facility] Potassium, Venous 4.6 3.5 - 5.0 mmol/L 06/10/2024 5:50 PM EST [facility] Ionized Calcium, Venous 1.23 1.15 - 1.33 mmol/L 06/10/2024 5:50 PM EST [facility] Glucose, Venous 114 65 - 199 mg/dL 06/10/2024 5:50 PM EST [facility] Comment:Glucose Concentratio n >=200 mg/dL plus symptoms is consistent with Diabetes Mellitus. Lactate, Venous 1.1 0.5 - 2.2 mmol/L 06/10/2024 5:50 PM EST [facility] Blood Gas Source Venous 06/10/20 5:50 PM [facility] Blood VENOUS BLOOD SPECIMEN / Unknown Blood Gas Venous / Unknown 06/10/2024 5:42 PM EST 06/10/2024 5:47 PM EST Melida Valdes MD CHEMISTRY ORDERABLES Performing Organization Address [facility] Co de Phone Number [facility] [place] [address] * POC, GLUCOSE (06/10/2024 5:35 PM EST) Glucometer, POC 123 65 - 199 mg/dL 06/10/2024 5:35 PM EST [facility] Comment:Supplemental ranges: <140 mg/dL before meals <180 mg/dL all other times of the day. Blood CAPILLARY BLOOD / Unknown 06/10/2024 5:35 PM EST 06/10/2024 5:35 PM EST Melida Valdes MD POINT OF CARE TEST O RDERABLES [facility] [place] [address] * (ABNORMAL) POC, GLUCOSE (06/10/2024 11:25 AM EST) Glucometer, POC 216(H) 65 - 199 mg/dL 06/10/2024 11:25 AM EST [facility] Comment:Supplemental ranges: <140 mg/dL before meals <180 mg/dL all other times of the day. Blood CAPILLARY BLOOD / Unknown 06/10/2024 11:25 AM EST 06/10/2024 11:25 AM EST Melida Valdes MD POINT OF CARE TEST O NIKA Performing Organization Address [facility] Co de Phone Number [facility] [place] [address] * (ABNORMAL) POC, GLUCOSE (06/10/2024 7:46 AM EST) Glucometer, POC 206(H) 65 - 199 mg/dL 06/10/2024 7:46 AM EST [facility] Comment:Supplemental ranges: <140 mg/dL before meals <180 mg/dL all other times of the day. Blood CAPILLARY BLOOD / Unknown 06/10/2024 7:46 AM EST 06/10/2024 7:46 AM EST Melida Valdes MD POINT OF CARE TEST O NIKA Performing Organization Address [facility] Co de Phone Number [facility] [place] [address] * POC, GLUCOSE (06/10/2024 4:23 AM EST) Glucometer, POC 154 65 - 199 mg/dL 06/10/2024 4:24 AM EST [facility] Comment:Supplemental ranges: <140 mg/dL before meals <180 mg/dL all other times of the day. Blood CAPILLARY BLOOD / Unknown 06/10/2024 4:23 AM EST 06/10/2024 4:24 AM EST Melida Valdes MD POINT OF CARE TEST O NIKA Performing Organization Address [facility] Co de Phone Number [facility] [place] [address] * (ABNORMAL) CBC (with Diff) (06/10/2024 1:55 AM EST) White Blood Cell 9.00 4.00 - 9.50 x10(3)/mc L 06/10/2024 2:14 AM [facility] Red Blood Cell 5.03 4.58 - 5.54 x10(6)/mc L 06/10/2024 2:14 AM [facility] Hemoglobin 14.9 13.7 - 16.5 g/dL 06/10/2024 2:14 AM [facility] Hematocrit 46.4 40.5 - 48.5 % 06/10/2024 2:14 AM [facility] Mean Cell Volume 92.2 82.9 - 93.1 fL 06/10/2024 2:14 AM [facility] Mean Cell Hemoglobin 29.6 27.5 - 32.1 pg 06/10/2024 2:14 AM [facility] Mean Cell Hemoglobin Concentration 32.1 32.0 - 35.7 g/dL 06/10/2024 2:14 AM [facility] Platelet 191 145 - 357 x10(3)/mc L 06/10/2024 2:14 AM [facility] Mean Platelet Volume 9.7 7.6 - 12.9 fL 06/10/2024 2:14 AM [facility] RDW Standard Deviation 47.4(H) 36.0 - 45.0 fL 06/10/2024 2:14 AM [facility] RDW coefficient of variation 14.1(H) 11.4 - 13.8 % 06/10/2024 2:14 AM [facility] NRBC% auto 0.0 % 06/10/2024 2:14 AM [facility] NRBC Absolute <0.01 <0.01 x10(3)/mc L 06/10/2024 2:14 AM [facility] Neutrophil % 48.7 % 06/10/2024 2:14 AM [facility] Neutrophil Absolute (ANC) - Automated 4.39 1.70 - 6.10 x10(3)/mc L 06/10/2024 2:14 AM [facility] Lymph % 34.9 % 06/10/2024 2:14 AM EST [facility] Lymph Absolute 3.14 0.90 - 3.20 x10(3)/mc L 06/10/2024 2:14 AM [facility] Monocyte % 11.2 % 06/10/2024 2:14 AM [facility] Monocyte Absolute 1.01(H) 0.30 - 0.90 x10(3)/mc L 06/10/2024 2:14 AM EST [facility] Eos % 3.6 % 06/10/2024 2:14 AM [facility] Eos Absolute 0.32 0.00 - 0.40 x10(3)/mc L 06/10/2024 2:14 AM [facility] Basophil % 1.0 % 06/10/2024 2:14 AM [facility] Baso Absolute 0.09 0.00 - 0.10 x10(3)/mc L 06/10/2024 2:14 AM [facility] Immature Gran % 0.6 % 2:14 AM [facility] Immature Gran Absolute 0.05(H) 0.00 - 0.04 x10(3)/mc L 06/10/2024 2:14 AM [facility] Blood VENOUS BLOOD SPECIMEN / Unknown Venipuncture / Unknown 06/10/2024 1:55 AM EST 06/10/2024 2:05 AM EST Shahnaz Scanlon MD HEMATOLOGY ORDERABLE S [facility] [place] [address] * Magnesium (06/10/2024 1:55 AM EST) Magnesium 0.83 0.69 - 1.07 mMol/L 06/10/2024 2:37 AM [facility] Blood VENOUS BLOOD SPECIMEN / Unknown Venipuncture / Unknown 06/10/2024 1:55 AM EST 06/10/2024 2:05 AM EST Shahnaz Scanlon MD CHEMISTRY ORDERABLES [facility] [place] [address] * (ABNORMAL) Basic Metabolic Panel (06/10/2024 1:55 AM EST) Glucose 140 65 - 199 mg/dL 06/10/2024 2:37 AM EST [facility] Comment:Glucose Concentratio n >=200 mg/dL plus symptoms is consistent with Diabetes Mellitus. Blood Urea Nitrogen 24(H) 10 - 20 mg/dL 06/10/2024 2:37 AM [facility] Creatinine 1.06 0.80 - 1.50 mg/dL 06/10/2024 2:37 AM [facility] Sodium 138 135 - 145 mMol/L 06/10/2024 2:37 AM [facility] Potassium 4.1 3.5 - 5.0 mMol/L 06/10/2024 2:37 AM [facility] Chloride 100 98 - 107 mMol/L 06/10/2024 2:37 AM [facility] Carbon Dioxide 25 22 - 31 mMol/L 06/10/2024 2:37 AM [facility] Anion Gap 13 5 - 15 mMol/L 06/10/2024 2:37 AM [facility] Calcium 9.5 8.5 - 10.5 mg/dL 06/10/2024 2:37 AM [facility] Est Glomerular Filtration Rate - Male 77 mL/min/1. 73 m?? 06/10/2024 2:37 AM [facility] Comment: This patient's estimated [...] Scanlon MD CHEMISTRY ORDERABLES Performing Organization Address [facility] Co de Phone Number [facility] [place] [address] * Heparin (unfractionated) Level (06/10/2024 1:54 AM EST) UF Heparin 0.56 IU/mL 06/10/2024 2:41 AM EST [facility] Comment: Heparin (anti-Xa) levels should [...] MD HEMATOLOGY ORDERABLE S Performing Organization Address [facility]/ZIP Co de Phone Number [facility] [place] [address] * POC, GLUCOSE (06/10/2024 12:05 AM EST) Glucometer, POC 125 65 - 199 mg/dL 06/10/2024 12:05 AM EST [facility] Comment:Supplemental ranges: <140 mg/dL before meals <180 mg/dL all other times of the day. Blood CAPILLARY BLOOD / Unknown 06/10/2024 12:05 AM EST 06/10/2024 12:05 AM EST Melida Valdes MD POINT OF CARE TEST O NIKA Performing Organization Address City/[facility]/ZIP Co de Phone Number [facility] [place] [address] * POC, GLUCOSE (06/09/2024 8:36 PM EST) Glucometer, POC 197 65 - 199 mg/dL 06/09/2024 8:36 PM EST [facility] Comment:Supplemental ranges: <140 mg/dL before meals <180 mg/dL all other times of the day. Blood CAPILLARY BLOOD / Unknown 06/09/2024 8:36 PM EST 06/09/2024 8:36 PM EST Melida Valdes MD POINT OF CARE TEST O NIKA Performing Organization Address [facility]/ZIP Co de Phone Number [facility] [place] [address] * POC, GLUCOSE (06/09/2024 5:27 PM EST) Glucometer, POC 174 65 - 199 mg/dL 06/09/2024 5:28 PM EST [facility] Comment:Supplemental ranges: <140 mg/dL before meals <180 mg/dL all other times of the day. Blood CAPILLARY BLOOD / Unknown 06/09/2024 5:27 PM EST 06/09/2024 5:28 PM EST Melida Valdes MD POINT OF CARE TEST O RDERABLES Performing Organization Address [facility] Co de Phone Number [facility] [place] [address] * (ABNORMAL) POC, GLUCOSE (06/09/2024 11:52 AM EST) Glucometer, POC 211(H) 65 - 199 mg/dL 06/09/2024 11:52 AM EST [facility] Comment:Supplemental ranges: <140 mg/dL before meals <180 mg/dL all other times of the day. Blood CAPILLARY BLOOD / Unknown 06/09/2024 11:52 AM EST 06/09/2024 11:52 AM EST Melida Valdes MD POINT OF CARE TEST O RDERABLES Performing Organization Address [facility] Co de Phone Number [facility] [place] [address] * Potassium (06/09/2024 8:25 AM EST) Potassium 4.6 3.5 - 5.0 mMol/L 06/09/2024 10:09 AM EST [facility] Blood VENOUS BLOOD SPECIMEN / Unknown Venipuncture / Unknown 06/09/2024 8:25 AM EST 06/09/2024 8:42 AM EST Shahnaz Scanlon MD CHEMISTRY ORDERABLES Performing Organization Address City/[facility] Co de Phone Number [facility] [place] [address] * (ABNORMAL) POC, GLUCOSE (06/09/2024 8:10 AM EST) Glucometer, POC 209(H) 65 - 199 mg/dL 06/09/2024 8:10 AM EST [facility] Comment:Supplemental ranges: <140 mg/dL before meals <180 mg/dL all other times of the day. Blood CAPILLARY BLOOD / Unknown 06/09/2024 8:10 AM EST 06/09/2024 8:11 AM EST Melida Valdes MD POINT OF CARE TEST O RDBECKIE Performing Organization Address [facility] Co de Phone Number [facility] [place] [address] * POC, GLUCOSE (06/09/2024 4:40 AM EST) Glucometer, POC 131 65 - 199 mg/dL 06/09/2024 4:40 AM EST [facility] Comment:Supplemental ranges: <140 mg/dL before meals <180 mg/dL all other times of the day. Blood CAPILLARY BLOOD / Unknown 06/09/2024 4:40 AM EST 06/09/2024 4:41 AM EST Melida Valdes MD POINT OF CARE TEST O NIKA Performing Organization Address [facility] Co de Phone Number [facility] [place] [address] * Heparin (unfractionated) Level (06/09/2024 2:12 AM EST) UF Heparin 0.55 IU/mL 06/09/2024 2:33 AM EST [facility] Comment: Heparin (anti-Xa) levels should [...] EST Shahnaz Scanlon MD HEMATOLOGY ORDERABLE S [facility] [place] [address] * (ABNORMAL) CBC (with Diff) (06/09/2024 2:12 AM EST) White Blood Cell 9.80(H) 4.00 - 9.50 x10(3)/mc L 06/09/2024 2:44 AM [facility] Red Blood Cell 5.18 4.58 - 5.54 x10(6)/mc L 06/09/2024 2:44 AM [facility] Hemoglobin 15.5 13.7 - 16.5 g/dL 06/09/2024 2:44 AM [facility] Hematocrit 47.4 40.5 - 48.5 % 06/09/2024 2:44 AM [facility] Mean Cell Volume 91.5 82.9 - 93.1 fL 06/09/2024 2:44 AM [facility] Mean Cell Hemoglobin 29.9 27.5 - 32.1 pg 06/09/2024 2:44 AM [facility] Mean Cell Hemoglobin Concentration 32.7 32.0 - 35.7 g/dL 06/09/2024 2:44 AM [facility] Platelet 205 145 - 357 x10(3)/mc L 06/09/2024 2:44 AM [facility] Mean Platelet Volume 9.7 7.6 - 12.9 fL 06/09/2024 2:44 AM [facility] RDW Standard Deviation 47.7(H) 36.0 - 45.0 fL 06/09/2024 2:44 AM [facility] RDW coefficient of variation 14.1(H) 11.4 - 13.8 % 06/09/2024 2:44 AM [facility] NRBC% auto 0.0 % 06/09/2024 2:44 AM [facility] NRBC Absolute <0.01 <0.01 x10(3)/mc L 06/09/2024 2:44 AM [facility] Neutrophil % 53.0 % 06/09/2024 2:44 AM [facility] Neutrophil Absolute (ANC) - Automated 5.19 1.70 - 6.10 x10(3)/mc L 06/09/2024 2:44 AM [facility] Lymph % 31.6 % 06/09/2024 2:44 AM [facility] Lymph Absolute 3.10 0.90 - 3.20 x10(3)/mc L 06/09/2024 2:44 AM [facility] Monocyte % 11.0 % 06/09/2024 2:44 AM [facility] Monocyte Absolute 1.08(H) 0.30 - 0.90 x10(3)/mc L 06/09/2024 2:44 AM [facility] Eos % 2.9 % 06/09/2024 2:44 AM [facility] Eos Absolute 0.28 0.00 - 0.40 x10(3)/mc L 06/09/2024 2:44 AM [facility] Basophil % 0.9 % 06/09/2024 2:44 AM [facility] Baso Absolute 0.09 0.00 - 0.10 x10(3)/mc L 06/09/2024 2:44 AM [facility] Immature Gran % 0.6 % 2:44 AM [facility] Immature Gran Absolute 0.06(H) 0.00 - 0.04 x10(3)/mc L 06/09/2024 2:44 AM [facility] Blood VENOUS BLOOD SPECIMEN / Unknown Venipuncture / Unknown 06/09/2024 2:12 AM EST 06/09/2024 2:21 AM EST Shahnaz Scanlon MD HEMATOLOGY ORDERABLE S [facility] [place] [address] * Magnesium (06/09/2024 2:12 AM EST) Pathologist [facility] Magnesium 0.83 0.69 - 1.07 mMol/L 06/09/2024 2:52 AM EST [facility] Blood VENOUS BLOOD SPECIMEN / Unknown Venipuncture / Unknown 06/09/2024 2:12 AM EST 06/09/2024 2:22 AM EST Shahnaz Scanlon MD CHEMISTRY ORDERABLES Performing Organization Address City/[facility]/ZIP Co de Phone Number [facility] [place] [address] * (ABNORMAL) Basic Metabolic Panel (06/09/2024 2:12 AM EST) [facility] Glucose 147 65 - 199 mg/dL 06/09/2024 2:52 AM [facility] Comment:Glucose Concentratio n >=200 mg/dL plus symptoms is consistent with Diabetes Mellitus. Blood Urea Nitrogen 24(H) 10 - 20 mg/dL 06/09/2024 2:52 AM [facility] Creatinine 1.11 0.80 - 1.50 mg/dL 06/09/2024 2:52 AM [facility] Sodium 136 135 - 145 mMol/L 06/09/2024 2:52 AM [facility] Potassium 3.9 3.5 - 5.0 mMol/L 06/09/2024 2:52 AM [facility] Chloride 98 98 - 107 mMol/L 06/09/2024 2:52 AM [facility] Carbon Dioxide 27 22 - 31 mMol/L 06/09/2024 2:52 AM [facility] Anion Gap 11 5 - 15 mMol/L 06/09/2024 2:52 AM [facility] Calcium 9.7 8.5 - 10.5 mg/dL 06/09/2024 2:52 AM EST [facility] Est Glomerular Filtration Rate - Male 73 mL/min/1. 73 m?? 06/09/2024 2:52 AM EST [facility] Comment: This patient's estimated GFR [...] Scanlon MD CHEMISTRY ORDERABLES Performing Organization Address City/[facility]/ZIP Co de Phone Number [facility] [place] [address] * POC, GLUCOSE (06/09/2024 12:34 AM EST) Glucometer, POC 186 65 - 199 mg/dL 06/09/2024 12:34 AM EST [facility] Comment:Supplemental ranges: <140 mg/dL before meals <180 mg/dL all other times of the day. Blood CAPILLARY BLOOD / Unknown 06/09/2024 12:34 AM EST 06/09/2024 12:34 AM EST Melida Valdes MD POINT OF CARE TEST O RDERABLES Performing Organization Address City/[facility]/ZIP Co de Phone Number [facility] [place] [address] * POC, GLUCOSE (06/08/2024 8:27 PM EST) Glucometer, POC 176 65 - 199 mg/dL 06/08/2024 8:28 PM EST [facility] Comment:Supplemental ranges: <140 mg/dL before meals <180 mg/dL all other times of the day. Blood CAPILLARY BLOOD / Unknown 06/08/2024 8:27 PM EST 06/08/2024 8:28 PM EST Melida Valdes MD POINT OF CARE TEST O NIKA Performing Organization Address City/[facility] Co de Phone Number [facility] [place] [address] * POC, GLUCOSE (06/08/2024 4:16 PM EST) Glucometer, POC 159 65 - 199 mg/dL 06/08/2024 4:16 PM EST [facility] Comment:Supplemental ranges: <140 mg/dL before meals <180 mg/dL all other times of the day. Blood CAPILLARY BLOOD / Unknown 06/08/2024 4:16 PM EST 06/08/2024 4:16 PM EST Melida Valdes MD POINT OF CARE TEST O NIKA Performing Organization Address [facility] Co de Phone Number [facility] [place] [address] * (ABNORMAL) POC, GLUCOSE (06/08/2024 12:35 PM EST) Glucometer, POC 226(H) 65 - 199 mg/dL 06/08/2024 12:35 PM EST [facility] Comment:Supplemental ranges: <140 mg/dL before meals <180 mg/dL all other times of the day. Blood CAPILLARY BLOOD / Unknown 06/08/2024 12:35 PM EST 06/08/2024 12:35 PM EST Melida Valdes MD POINT OF CARE TEST O NIKA Performing Organization Address City/[facility]/ZIP Co de Phone Number [facility] [place] [address] * POC, GLUCOSE (06/08/2024 8:10 AM EST) Glucometer, POC 190 65 - 199 mg/dL 06/08/2024 8:14 AM EST [facility] Comment:Supplemental ranges: <140 mg/dL before meals <180 mg/dL all other times of the day. Blood CAPILLARY BLOOD / Unknown 06/08/2024 8:10 AM EST 06/08/2024 8:14 AM EST Melida Valdes MD POINT OF CARE TEST O NIKA Performing Organization Address City/[facility]/ZIP Co de Phone Number [facility] [place] [address] * POC, GLUCOSE (06/08/2024 4:09 AM EST) Glucometer, POC 151 65 - 199 mg/dL 06/08/2024 4:10 AM EST [facility] Comment:Supplemental ranges: <140 mg/dL before meals <180 mg/dL all other times of the day. Blood CAPILLARY BLOOD / Unknown 06/08/2024 4:09 AM EST 06/08/2024 4:10 AM EST Melida Valdes MD POINT OF CARE TEST Abimael MAHER Performing Organization Address City/[facility]/ZIP Co de Phone Number [facility] [place] [address] * Heparin (unfractionated) Level (06/08/2024 3:21 AM EST) UF Heparin 0.46 IU/mL 06/08/2024 3:41 AM EST [facility] Comment: Heparin (anti-Xa) levels should [...] EST Shahnaz Scanlon MD HEMATOLOGY ORDERABLE S [facility] [place] [address] * (ABNORMAL) CBC (with Diff) (06/08/2024 3:21 AM EST) White Blood Cell 9.92(H) 4.00 - 9.50 x10(3)/mc L 06/08/2024 3:34 AM [facility] Red Blood Cell 5.09 4.58 - 5.54 x10(6)/mc L 06/08/2024 3:34 AM [facility] Hemoglobin 15.1 13.7 - 16.5 g/dL 06/08/2024 3:34 AM [facility] Hematocrit 46.7 40.5 - 48.5 % 06/08/2024 3:34 AM [facility] Mean Cell Volume 91.7 82.9 - 93.1 fL 06/08/2024 3:34 AM [facility] Mean Cell Hemoglobin 29.7 27.5 - 32.1 pg 06/08/2024 3:34 AM [facility] Mean Cell Hemoglobin Concentration 32.3 32.0 - 35.7 g/dL 06/08/2024 3:34 AM [facility] Platelet 203 145 - 357 x10(3)/mc L 06/08/2024 3:34 AM [facility] Mean Platelet Volume 9.4 7.6 - 12.9 fL 06/08/2024 3:34 AM [facility] RDW Standard Deviation 46.9(H) 36.0 - 45.0 fL 06/08/2024 3:34 AM [facility] RDW coefficient of variation 13.8 11.4 - 13.8 % 06/08/2024 3:34 AM [facility] NRBC% auto 0.0 % 06/08/2024 3:34 AM [facility] NRBC Absolute <0.01 <0.01 x10(3)/mc L 06/08/2024 3:34 AM [facility] Neutrophil % 56.8 % 06/08/2024 3:34 AM [facility] Neutrophil Absolute (ANC) - Automated 5.63 1.70 - 6.10 x10(3)/mc L 06/08/2024 3:34 AM [facility] Lymph % 27.3 % 06/08/2024 3:34 AM [facility] Lymph Absolute 2.71 0.90 - 3.20 x10(3)/mc L 06/08/2024 3:34 AM [facility] Monocyte % 11.2 % 06/08/2024 3:34 AM [facility] Monocyte Absolute 1.11(H) 0.30 - 0.90 x10(3)/mc L 06/08/2024 3:34 AM [facility] Eos % 3.4 % 06/08/2024 3:34 AM [facility] Eos Absolute 0.34 0.00 - 0.40 x10(3)/mc L 06/08/2024 3:34 AM [facility] Basophil % 0.8 % 06/08/2024 3:34 AM [facility] Baso Absolute 0.08 0.00 - 0.10 x10(3)/mc L 06/08/2024 3:34 AM [facility] Immature Gran % 0.5 % 3:34 AM EST [facility] Immature Gran Absolute 0.05(H) 0.00 - 0.04 x10(3)/mc L 06/08/2024 3:34 AM [facility] Blood VENOUS BLOOD SPECIMEN / Unknown Venipuncture / Unknown 06/08/2024 3:21 AM EST 06/08/2024 3:27 AM EST Shahnaz Scanlon MD HEMATOLOGY ORDERABLE S Performing Organization Address [facility] Co de Phone Number [facility] [place] [address] * Magnesium (06/08/2024 3:21 AM EST) Magnesium 0.84 0.69 - 1.07 mMol/L 06/08/2024 3:59 AM [facility] Blood VENOUS BLOOD SPECIMEN / Unknown Venipuncture / Unknown 06/08/2024 3:21 AM EST 06/08/2024 3:27 AM EST Shahnaz Scanlon MD CHEMISTRY ORDERABLES Performing Organization Address [facility] Co de Phone Number [facility] [place] [address] * (ABNORMAL) Basic Metabolic Panel (06/08/2024 3:21 AM EST) Glucose 173 65 - 199 mg/dL 06/08/2024 3:59 AM [facility] Comment:Glucose Concentratio n >=200 mg/dL plus symptoms is consistent with Diabetes Mellitus. Blood Urea Nitrogen 25(H) 10 - 20 mg/dL 06/08/2024 3:59 AM [facility] Creatinine 1.09 0.80 - 1.50 mg/dL 06/08/2024 3:59 AM [facility] Sodium 135 135 - 145 mMol/L 06/08/2024 3:59 AM [facility] Potassium 4.2 3.5 - 5.0 mMol/L 06/08/2024 3:59 AM EST [facility] Chloride 98 98 - 107 mMol/L 06/08/2024 3:59 AM [facility] Carbon Dioxide 25 22 - 31 mMol/L 06/08/2024 3:59 AM [facility] Anion Gap 12 5 - 15 mMol/L 06/08/2024 3:59 AM [facility] Calcium 9.4 8.5 - 10.5 mg/dL 06/08/2024 3:59 AM [facility] Est Glomerular Filtration Rate - Male 74 mL/min/1. 73 m?? 06/08/2024 3:59 AM [facility] Comment: This patient's estimated [...] AM EST Shahnaz Scanlon MD CHEMISTRY ORDERABLES [facility] [place] [address] * POC, GLUCOSE (06/07/2024 11:57 PM EST) Glucometer, POC 188 65 - 199 mg/dL 06/07/2024 11:57 PM EST [facility] Comment:Supplemental ranges: <140 mg/dL before meals <180 mg/dL all other times of the day. Blood CAPILLARY BLOOD / Unknown 06/07/2024 11:57 PM EST 06/07/2024 11:58 PM EST Melida Valdes MD POINT OF CARE TEST O NIKA Performing Organization Address [facility] Co de Phone Number [facility] [place] [address] * POC, GLUCOSE (06/07/2024 8:05 PM EST) Glucometer, POC 118 65 - 199 mg/dL 06/07/2024 8:06 PM EST [facility] Comment:Supplemental ranges: <140 mg/dL before meals <180 mg/dL all other times of the day. Blood CAPILLARY BLOOD / Unknown 06/07/2024 8:05 PM EST 06/07/2024 8:06 PM EST Melida Valdes MD POINT OF CARE TEST Abimael MAHER Performing Organization Address [facility] Co de Phone Number [facility] [place] [address] * Potassium (06/07/2024 5:22 PM EST) Potassium 4.6 3.5 - 5.0 mMol/L 06/07/2024 5:59 PM EST [facility] Blood VENOUS BLOOD SPECIMEN / Unknown Venipuncture / Unknown 06/07/2024 5:22 PM EST 06/07/2024 5:26 PM EST Shahnaz Scanlon MD CHEMISTRY ORDERABLES Performing Organization Address City/[facility] Co de Phone Number [facility] [place] [address] * POC, GLUCOSE (06/07/2024 4:31 PM EST) Glucometer, POC 174 65 - 199 mg/dL 06/07/2024 4:34 PM EST [facility] Comment:Supplemental ranges: <140 mg/dL before meals <180 mg/dL all other times of the day. Blood CAPILLARY BLOOD / Unknown 06/07/2024 4:31 PM EST 06/07/2024 4:34 PM EST Melida Valdes MD POINT OF CARE TEST O RDERABLES [facility] [place] [address] * MRI Cardiac Morphology Function wwo Contrast (06/07/2024 1:10 PM EST) WORKSTATION ID [id number] DH RAD Anatomical Region Laterality Modality Magnetic [...] - Mildly dilated left ventricle size with eaktokzk-pk-pejanhok decreased LV systolic function. ??LV ejection fraction [...] who have questions please contact the health rn progressive care unit that requested your imaging first. ? Electronically signed by: Kriss Alonzo MD, [facility] ([phone]), at 06/07/2024 2:41 PM Narrative 06/07/2024 2:41 [...] VENTRICLE: Mildly dilated left ventricle size with koiqgspi-xs-spfkhwey decreased LV systolic function. ??LV ejection fraction [...] VENTRICLE: Mildly dilated left ventricle size with hrsvimcm-ke-girbddpi decreasedLV systolic function. LV ejection fraction is [...] - Mildly dilated left ventricle size with jlrmizui-to-vhitwwgf decreasedLV systolic function. LV ejection fraction is [...] patients who have questions please contactthe health rn progressive care unit that requested your imaging first. Electronically signed by: Kriss Alonzo MD, [facility]([phone]), at 06/07/2024 2:41 PM Delroy Fofana MD IMG MRI ORDERABLES * (ABNORMAL) POC, GLUCOSE (06/07/2024 11:05 AM EST) [facility] Glucometer, POC 221(H) 65 - 199 mg/dL 06/07/2024 11:06 AM EST [facility] Comment:Supplemental ranges: <140 mg/dL before meals <180 mg/dL all other times of the day. Blood CAPILLARY BLOOD / Unknown 06/07/2024 11:05 AM EST 06/07/2024 11:06 AM EST Melida Valdes MD POINT OF CARE TEST O NIKA Performing Organization Address City/[facility]/ZIP Co de Phone Number [facility] [place] [address] * (ABNORMAL) POC, GLUCOSE (06/07/2024 11:03 AM EST) Glucometer, POC 250(H) 65 - 199 mg/dL 06/07/2024 11:04 AM EST [facility] Comment:Supplemental ranges: <140 mg/dL before meals <180 mg/dL all other times of the day. Blood CAPILLARY BLOOD / Unknown 06/07/2024 11:03 AM EST 06/07/2024 11:04 AM EST Melida Valdes MD POINT OF CARE TEST O NIKA Performing Organization Address City/[facility]/ZIP Co de Phone Number [facility] [place] [address] * Potassium (06/07/2024 9:44 AM EST) Potassium 4.7 3.5 - 5.0 mMol/L 06/07/2024 10:23 AM EST [facility] Blood VENOUS BLOOD SPECIMEN / Unknown Venipuncture / Unknown 06/07/2024 9:44 AM EST 06/07/2024 9:57 AM EST Shahnaz Scanlon MD CHEMISTRY ORDERABLES Performing Organization Address City/[facility]/ZIP Co de Phone Number [facility] [place] [address] * POC, GLUCOSE (06/07/2024 7:45 AM EST) Glucometer, POC 175 65 - 199 mg/dL 06/07/2024 7:45 AM EST [facility] Comment:Supplemental ranges: <140 mg/dL before meals <180 mg/dL all other times of the day. Blood CAPILLARY BLOOD / Unknown 06/07/2024 7:45 AM EST 06/07/2024 7:46 AM EST Melida Valdes MD POINT OF CARE TEST O RDERABLES [facility] [place] [address] * XR Chest PA & Lateral (Generic) (06/07/2024 7:03 AM EST) WORKSTATION ID [id number] RAD Anatomical Region Laterality Modality Chest N/A [...] who have questions please contact the health rn progressive care unit that requested your imaging first. ? Electronically signed by: Stuart Aponte MD, [facility] ??([phone]), at 06/07/2024 10:45 AM Narrative 06/07/2024 10:45 [...] patients who have questions please contactthe health rn progressive care unit that requested your imaging first. Electronically signed by: Stuart Aponte MD, [facility]([phone]), at 06/07/2024 10:45 AM Shahnaz Scanlon MD IMG DX ORDERABLES * POC, GLUCOSE (06/07/2024 4:25 AM EST) [facility] Glucometer, POC 127 65 - 199 mg/dL 06/07/2024 4:26 AM EST [facility] Comment:Supplemental ranges: <140 mg/dL before meals <180 mg/dL all other times of the day. Blood CAPILLARY BLOOD / Unknown 06/07/2024 4:25 AM EST 06/07/2024 4:26 AM EST Melida Valdes MD POINT OF CARE TEST O RDERABLES [facility] [place] [address] * Heparin (unfractionated) Level (06/07/2024 2:41 AM EST) Pathologist [facility] UF Heparin 0.45 IU/mL 06/07/2024 3:03 AM EST [facility] Comment: Heparin (anti-Xa) levels should [...] MD HEMATOLOGY ORDERABLE S Performing Organization Address City/State/[facility] Co de Phone Number [facility] [place] [address] * (ABNORMAL) CBC (with Diff) (06/07/2024 2:41 AM EST) [facility] White Blood Cell 10.06(H) 4.00 - 9.50 x10(3)/mc L 06/07/2024 2:58 AM EST [facility] Red Blood Cell 5.02 4.58 - 5.54 x10(6)/mc L 06/07/2024 2:58 AM EST [facility] Hemoglobin 14.8 13.7 - 16.5 g/dL 06/07/2024 2:58 AM EST [facility] Hematocrit 46.2 40.5 - 48.5 % 06/07/2024 2:58 AM EST [facility] Mean Cell Volume 92.0 82.9 - 93.1 fL 06/07/2024 2:58 AM [facility] Mean Cell Hemoglobin 29.5 27.5 - 32.1 pg 06/07/2024 2:58 AM [facility] Mean Cell Hemoglobin Concentration 32.0 32.0 - 35.7 g/dL 06/07/2024 2:58 AM [facility] Platelet 202 145 - 357 x10(3)/mc L 06/07/2024 2:58 AM [facility] Mean Platelet Volume 9.6 7.6 - 12.9 fL 06/07/2024 2:58 AM [facility] RDW Standard Deviation 46.3(H) 36.0 - 45.0 fL 06/07/2024 2:58 AM [facility] RDW coefficient of variation 13.8 11.4 - 13.8 % 06/07/2024 2:58 AM [facility] NRBC% auto 0.0 % 06/07/2024 2:58 AM [facility] NRBC Absolute <0.01 <0.01 x10(3)/mc L 06/07/2024 2:58 AM [facility] Neutrophil % 55.9 % 06/07/2024 2:58 AM [facility] Neutrophil Absolute (ANC) - Automated 5.62 1.70 - 6.10 x10(3)/mc L 06/07/2024 2:58 AM [facility] Lymph % 28.3 % 06/07/2024 2:58 AM [facility] Lymph Absolute 2.85 0.90 - 3.20 x10(3)/mc L 06/07/2024 2:58 AM [facility] Monocyte % 10.8 % 06/07/2024 2:58 AM [facility] Monocyte Absolute 1.09(H) 0.30 - 0.90 x10(3)/mc L 06/07/2024 2:58 AM [facility] [facility] Eos % 3.6 % 06/07/2024 2:58 AM EST [facility] Eos Absolute 0.36 0.00 - 0.40 x10(3)/mc L 06/07/2024 2:58 AM EST [facility] Basophil % 0.8 % 06/07/2024 2:58 AM [facility] Baso Absolute 0.08 0.00 - 0.10 x10(3)/mc L 06/07/2024 2:58 AM EST [facility] Immature Gran % 0.6 % 2:58 AM [facility] Immature Gran Absolute 0.06(H) 0.00 - 0.04 x10(3)/mc L 06/07/2024 2:58 AM [facility] Blood VENOUS BLOOD SPECIMEN / Unknown Venipuncture / Unknown 06/07/2024 2:41 AM EST 06/07/2024 2:52 AM EST Shahnaz Scanlon MD HEMATOLOGY ORDERABLE S [facility] [place] [address] * Magnesium (06/07/2024 2:41 AM EST) Magnesium 0.92 0.69 - 1.07 mMol/L 06/07/2024 3:25 AM EST [facility] Blood VENOUS BLOOD SPECIMEN / Unknown Venipuncture / Unknown 06/07/2024 2:41 AM EST 06/07/2024 2:51 AM EST Shahnaz Scanlon MD CHEMISTRY ORDERABLES [facility] [place] [address] * (ABNORMAL) Basic Metabolic Panel (06/07/2024 2:41 AM EST) Glucose 140 65 - 199 mg/dL 06/07/2024 3:25 AM [facility] Comment:Glucose Concentratio n >=200 mg/dL plus symptoms is consistent with Diabetes Mellitus. Blood Urea Nitrogen 26(H) 10 - 20 mg/dL 06/07/2024 3:25 AM [facility] Creatinine 1.06 0.80 - 1.50 mg/dL 06/07/2024 3:25 AM [facility] Sodium 136 135 - 145 mMol/L 06/07/2024 3:25 AM [facility] Potassium 3.8 3.5 - 5.0 mMol/L 06/07/2024 3:25 AM [facility] Chloride 98 98 - 107 mMol/L 06/07/2024 3:25 AM [facility] Carbon Dioxide 28 22 - 31 mMol/L 06/07/2024 3:25 AM [facility] Anion Gap 10 5 - 15 mMol/L 06/07/2024 3:25 AM [facility] Calcium 9.4 8.5 - 10.5 mg/dL 06/07/2024 3:25 AM [facility] Est Glomerular Filtration Rate - Male 77 mL/min/1. 73 m?? 06/07/2024 3:25 AM [facility] Comment: This patient's estimated [...] Scanlon MD CHEMISTRY ORDERABLES Performing Organization Address [facility] Co de Phone Number [facility] [place] [address] * POC, GLUCOSE (06/07/2024 12:08 AM EST) Glucometer, POC 182 65 - 199 mg/dL 06/07/2024 12:09 AM EST [facility] Comment:Supplemental ranges: <140 mg/dL before meals <180 mg/dL all other times of the day. Blood CAPILLARY BLOOD / Unknown 06/07/2024 12:08 AM EST 06/07/2024 12:09 AM EST Melida Valdes MD POINT OF CARE TEST O NIKA Performing Organization Address [facility] de Phone Number [facility] [place] [address] * POC, GLUCOSE (06/06/2024 8:18 PM EST) Glucometer, POC 143 65 - 199 mg/dL 06/06/2024 8:19 PM EST [facility] Comment:Supplemental ranges: <140 mg/dL before meals <180 mg/dL all other times of the day. Blood CAPILLARY BLOOD / Unknown 06/06/2024 8:18 PM EST 06/06/2024 8:19 PM EST Melida Valdes MD POINT OF CARE TEST O NIKA Performing Organization Address [facility] Co de Phone Number [facility] [place] [address] * POC, GLUCOSE (06/06/2024 3:39 PM EST) Glucometer, POC 147 65 - 199 mg/dL 06/06/2024 3:40 PM EST [facility] Comment:Supplemental ranges: <140 mg/dL before meals <180 mg/dL all other times of the day. Blood CAPILLARY BLOOD / Unknown 06/06/2024 3:39 PM EST 06/06/2024 3:40 PM EST Melida Valdes MD POINT OF CARE TEST O NIKA Performing Organization Address City/[facility]/ZIP Co de Phone Number [facility] [place] [address] * Potassium (06/06/2024 2:37 PM EST) Potassium 4.3 3.5 - 5.0 mMol/L 06/06/2024 3:01 PM EST [facility] Blood VENOUS BLOOD SPECIMEN / Unknown Venipuncture / Unknown 06/06/2024 2:37 PM EST 06/06/2024 2:42 PM EST Shahnaz Scanlon MD CHEMISTRY ORDERABLES Performing Organization Address [facility] Co de Phone Number [facility] [place] [address] * (ABNORMAL) POC, GLUCOSE (06/06/2024 1:39 PM EST) Glucometer, POC 317(H) 65 - 199 mg/dL 06/06/2024 1:40 PM EST [facility] Comment:Supplemental ranges: <140 mg/dL before meals <180 mg/dL all other times of the day. Blood CAPILLARY BLOOD / Unknown 06/06/2024 1:39 PM EST 06/06/2024 1:41 PM EST Melida Valdes MD POINT OF CARE TEST O NIKA Performing Organization Address City/[facility]/ZIP Co de Phone Number [facility] [place] [address] * (ABNORMAL) POC, GLUCOSE (06/06/2024 11:34 AM EST) Glucometer, POC 264(H) 65 - 199 mg/dL 06/06/2024 11:35 AM EST [facility] Comment:Supplemental ranges: <140 mg/dL before meals <180 mg/dL all other times of the day. Blood CAPILLARY BLOOD / Unknown 06/06/2024 11:34 AM EST 06/06/2024 11:35 AM EST Melida Valdes MD POINT OF CARE TEST O RDBECKIE Performing Organization Address City/[facility]/ZIP Co de Phone Number [facility] [place] [address] * Potassium (06/06/2024 10:17 AM EST) Potassium 4.3 3.5 - 5.0 mMol/L 06/06/2024 10:46 AM EST [facility] Blood VENOUS BLOOD SPECIMEN / Unknown Venipuncture / Unknown 06/06/2024 10:17 AM EST 06/06/2024 10:22 AM EST Shahnaz Scanlon MD CHEMISTRY ORDERABLES Performing Organization Address City/[facility]/ZIP Co de Phone Number [facility] [place] [address] * POC, GLUCOSE (06/06/2024 7:57 AM EST) Glucometer, POC 195 65 - 199 mg/dL 06/06/2024 8:03 AM EST [facility] Comment:Supplemental ranges: <140 mg/dL before meals <180 mg/dL all other times of the day. Blood CAPILLARY BLOOD / Unknown 06/06/2024 7:57 AM EST 06/06/2024 8:03 AM EST Melida Valdes MD POINT OF CARE TEST O NIKA Performing Organization Address City/[facility]/ZIP Co de Phone Number [facility] [place] [address] * POC, GLUCOSE (06/06/2024 6:53 AM EST) Glucometer, POC 187 65 - 199 mg/dL 06/06/2024 6:53 AM EST [facility] Comment:Supplemental ranges: <140 mg/dL before meals <180 mg/dL all other times of the day. Blood CAPILLARY BLOOD / Unknown 06/06/2024 6:53 AM EST 06/06/2024 6:54 AM EST Melida Valdes MD POINT OF CARE TEST O RDERABLES [facility] [place] [address] * (ABNORMAL) Hemoglobin A1c (06/06/2024 3:33 AM EST) Pathologist [facility] Hemoglobin A1c 7.1(H) 4.3 - 5.6 % 06/06/2024 1:01 PM EST [facility] Comment: Per ADA guidelines, without [...] red blood cell turnover may not be dermatology sales representative of glycemic control. Reference Interval: 4.3 - 5.6% 5.7 - 6.4%: Consistent with prediabetes >=6.5%: Consistent with diagnosis of diabetes mellitus Estimated Average Glucose 157 mg/dL 06/06/2024 1:01 PM EST [facility] Blood VENOUS BLOOD SPECIMEN / Unknown Venipuncture / Unknown 06/06/2024 3:33 AM EST 06/06/2024 3:48 AM EST Alejandra Baumann APRN CHEMISTRY ORDERAB LES [facility] [place] [address] * Heparin (unfractionated) Level (06/06/2024 3:33 AM EST) Pathologist [facility] UF Heparin 0.36 IU/mL 06/06/2024 3:59 AM EST [facility] Comment: Heparin (anti-Xa) levels should [...] MD HEMATOLOGY ORDERABLE S Performing Organization Address City/State/[facility] Co de Phone Number [facility] [place] [address] * (ABNORMAL) CBC (with Diff) (06/06/2024 3:33 AM EST) White Blood Cell 9.81(H) 4.00 - 9.50 x10(3)/mc L 06/06/2024 3:54 AM EST [facility] Red Blood Cell 4.91 4.58 - 5.54 x10(6)/mc L 06/06/2024 3:54 AM EST [facility] Hemoglobin 14.6 13.7 - 16.5 g/dL 06/06/2024 3:54 AM EST [facility] Hematocrit 45.4 40.5 - 48.5 % 06/06/2024 3:54 AM [facility] Mean Cell Volume 92.5 82.9 - 93.1 fL 06/06/2024 3:54 AM EST [facility] Mean Cell Hemoglobin 29.7 27.5 - 32.1 pg 06/06/2024 3:54 AM [facility] Mean Cell Hemoglobin Concentration 32.2 32.0 - 35.7 g/dL 06/06/2024 3:54 AM [facility] Platelet 199 145 - 357 x10(3)/mc L 06/06/2024 3:54 AM [facility] Mean Platelet Volume 9.5 7.6 - 12.9 fL 06/06/2024 3:54 AM [facility] RDW Standard Deviation 47.2(H) 36.0 - 45.0 fL 06/06/2024 3:54 AM [facility] RDW coefficient of variation 13.9(H) 11.4 - 13.8 % 06/06/2024 3:54 AM [facility] NRBC% auto 0.0 % 06/06/2024 3:54 AM [facility] NRBC Absolute <0.01 <0.01 x10(3)/mc L 06/06/2024 3:54 AM [facility] Neutrophil % 56.8 % 06/06/2024 3:54 AM [facility] Neutrophil Absolute (ANC) - Automated 5.57 1.70 - 6.10 x10(3)/mc L 06/06/2024 3:54 AM [facility] Lymph % 27.6 % 06/06/2024 3:54 AM [facility] Lymph Absolute 2.71 0.90 - 3.20 x10(3)/mc L 06/06/2024 3:54 AM [facility] Monocyte % 11.1 % 06/06/2024 3:54 AM [facility] Monocyte Absolute 1.09(H) 0.30 - 0.90 x10(3)/mc L 06/06/2024 3:54 AM [facility] Eos % 3.0 % 06/06/2024 3:54 AM [facility] Eos Absolute 0.29 0.00 - 0.40 x10(3)/mc L 06/06/2024 3:54 AM EST [facility] Basophil % 0.9 % 06/06/2024 3:54 AM EST [facility] Baso Absolute 0.09 0.00 - 0.10 x10(3)/mc L 06/06/2024 3:54 AM EST [facility] Immature Gran % 0.6 % 3:54 AM EST [facility] Immature Gran Absolute 0.06(H) 0.00 - 0.04 x10(3)/mc L 06/06/2024 3:54 AM EST [facility] Blood VENOUS BLOOD SPECIMEN / Unknown Venipuncture / Unknown 06/06/2024 3:33 AM EST 06/06/2024 3:48 AM EST Shahnaz Scanlon MD HEMATOLOGY ORDERABLE S Performing Organization Address City/[facility]/ZIP Co de Phone Number [facility] [place] [address] * Magnesium (06/06/2024 3:33 AM EST) Magnesium 0.92 0.69 - 1.07 mMol/L 06/06/2024 4:17 AM [facility] Blood VENOUS BLOOD SPECIMEN / Unknown Venipuncture / Unknown 06/06/2024 3:33 AM EST 06/06/2024 3:47 AM EST Shahnaz Scanlon MD CHEMISTRY ORDERABLES [facility] [place] [address] * (ABNORMAL) Basic Metabolic Panel (06/06/2024 3:33 AM EST) Glucose 190 65 - 199 mg/dL 06/06/2024 4:17 AM [facility] Comment:Glucose Concentratio n >=200 mg/dL plus symptoms is consistent with Diabetes Mellitus. Blood Urea Nitrogen 27(H) 10 - 20 mg/dL 06/06/2024 4:17 AM [facility] Creatinine 1.12 0.80 - 1.50 mg/dL 06/06/2024 4:17 AM [facility] Sodium 136 135 - 145 mMol/L 06/06/2024 4:17 AM [facility] Potassium 4.0 3.5 - 5.0 mMol/L 06/06/2024 4:17 AM [facility] Chloride 97(L) 98 - 107 mMol/L 06/06/2024 4:17 AM [facility] Carbon Dioxide 26 22 - 31 mMol/L 06/06/2024 4:17 AM [facility] Anion Gap 13 5 - 15 mMol/L 06/06/2024 4:17 AM [facility] Calcium 9.1 8.5 - 10.5 mg/dL 06/06/2024 4:17 AM [facility] Est Glomerular Filtration Rate - Male 72 mL/min/1. 73 m?? 06/06/2024 4:17 AM [facility] Comment: This patient's estimated [...] AM EST Shahnaz Scanlon MD CHEMISTRY ORDERABLES [facility] [place] [address] * (ABNORMAL) POC, GLUCOSE (06/05/2024 10:31 PM EDT) Glucometer, POC 238(H) 65 - 199 mg/dL 06/05/2024 10:31 PM EDT [facility] Comment:Supplemental ranges: <140 mg/dL before meals <180 mg/dL all other times of the day. Blood CAPILLARY BLOOD / Unknown 06/05/2024 10:31 PM EDT 06/05/2024 10:31 PM EDT Melida Valdes MD POINT OF CARE TEST O NIKA Performing Organization Address [facility] Co de Phone Number [facility] [place] [address] * (ABNORMAL) POC, GLUCOSE (06/05/2024 4:22 PM EDT) Glucometer, POC 205(H) 65 - 199 mg/dL 06/05/2024 4:22 PM EDT [facility] Comment:Supplemental ranges: <140 mg/dL before meals <180 mg/dL all other times of the day. Blood CAPILLARY BLOOD / Unknown 06/05/2024 4:22 PM EDT 06/05/2024 4:23 PM EDT Melida Valdes MD POINT OF CARE TEST O RALPHERAPIETER Performing Organization Address City/[facility]/ZIP Co de Phone Number [facility] [place] [address] * (ABNORMAL) POC, GLUCOSE (06/05/2024 11:34 AM EDT) Glucometer, POC 211(H) 65 - 199 mg/dL 06/05/2024 11:34 AM EDT [facility] Comment:Supplemental ranges: <140 mg/dL before meals <180 mg/dL all other times of the day. Blood CAPILLARY BLOOD / Unknown 06/05/2024 11:34 AM EDT 06/05/2024 11:34 AM EDT Melida Valdes MD POINT OF CARE TEST O RDERABLES Performing Organization Address City/[facility]/ZIP Co de Phone Number [facility] [place] [address] * Potassium (06/05/2024 9:04 AM EDT) [facility] Potassium 4.3 3.5 - 5.0 mMol/L 06/05/2024 9:50 AM EDT [facility] Blood VENOUS BLOOD SPECIMEN / Unknown Venipuncture / Unknown 06/05/2024 9:04 AM EDT 06/05/2024 9:21 AM EDT Shahnaz Scanlon MD CHEMISTRY ORDERABLES Performing Organization Address [facility] Co de Phone Number [facility] [place] [address] * POC, GLUCOSE (06/05/2024 7:27 AM EDT) [facility] Glucometer, POC 166 65 - 199 mg/dL 06/05/2024 7:27 AM EDT [facility] Comment:Supplemental ranges: <140 mg/dL before meals <180 mg/dL all other times of the day. Blood CAPILLARY BLOOD / Unknown 06/05/2024 7:27 AM EDT 06/05/2024 7:27 AM EDT Melida Valdes MD POINT OF CARE TEST O NIKA Performing Organization Address [facility] Co de Phone Number [facility] [place] [address] * Heparin (unfractionated) Level (06/05/2024 3:44 AM EDT) [facility] UF Heparin 0.44 IU/mL 06/05/2024 4:07 AM EDT [facility] Comment: Heparin (anti-Xa) levels should [...] MD HEMATOLOGY ORDERABLE S Performing Organization Address City/State/[facility] Co de Phone Number [facility] [place] [address] * (ABNORMAL) CBC (with Diff) (06/05/2024 3:44 AM EDT) White Blood Cell 10.83(H) 4.00 - 9.50 x10(3)/mc L 06/05/2024 3:56 AM EDT [facility] Red Blood Cell 5.07 4.58 - 5.54 x10(6)/mc L 06/05/2024 3:56 AM EDT [facility] Hemoglobin 15.3 13.7 - 16.5 g/dL 06/05/2024 3:56 AM EDT [facility] Hematocrit 46.8 40.5 - 48.5 % 06/05/2024 3:56 AM EDT [facility] Mean Cell Volume 92.3 82.9 - 93.1 fL 06/05/2024 3:56 AM EDT [facility] Mean Cell Hemoglobin 30.2 27.5 - 32.1 pg 06/05/2024 3:56 AM EDT [facility] Mean Cell Hemoglobin Concentration 32.7 32.0 - 35.7 g/dL 06/05/2024 3:56 AM [facility] Platelet 219 145 - 357 x10(3)/mc L 06/05/2024 3:56 AM [facility] Mean [...] % 0.8 % 06/05/2024 3:56 AM EDT [facility] Baso Absolute 0.09 0.00 - 0.10 x10(3)/mc L 06/05/2024 3:56 AM EDT [facility] Immature Gran % 0.6 % 3:56 AM EDT [facility] Immature Gran Absolute 0.07(H) 0.00 - 0.04 x10(3)/mc L 06/05/2024 3:56 AM EDT [facility] Blood VENOUS BLOOD SPECIMEN / Unknown Venipuncture / Unknown 06/05/2024 3:44 AM EDT 06/05/2024 3:50 AM EDT Shahnaz Scanlon MD HEMATOLOGY ORDERABLE S Performing Organization Address City/[facility]/ZIP Co de Phone Number [facility] [place] [address] * Magnesium (06/05/2024 3:44 AM EDT) Magnesium 0.92 0.69 - 1.07 mMol/L 06/05/2024 4:20 AM EDT [facility] Blood VENOUS BLOOD SPECIMEN / Unknown Venipuncture / Unknown 06/05/2024 3:44 AM EDT 06/05/2024 3:50 AM EDT Shahnaz Scanlon MD CHEMISTRY ORDERABLES [facility] [place] [address] * (ABNORMAL) Basic Metabolic Panel (06/05/2024 3:44 AM EDT) Glucose 155 65 - 199 mg/dL 06/05/2024 4:20 AM EDT [facility] Comment:Glucose Concentratio n >=200 mg/dL plus symptoms is consistent with Diabetes Mellitus. Blood Urea Nitrogen 25(H) 10 - 20 mg/dL 06/05/2024 4:20 AM [facility] Creatinine 1.16 0.80 - 1.50 mg/dL 06/05/2024 4:20 AM [facility] Sodium 136 135 - 145 mMol/L 06/05/2024 4:20 AM [facility] Potassium 3.9 3.5 - 5.0 mMol/L 06/05/2024 4:20 AM [facility] Chloride 95(L) 98 - 107 mMol/L 06/05/2024 4:20 AM [facility] Carbon [...] AM EDT Shahnaz Scanlon MD CHEMISTRY ORDERABLES [facility] [place] [address] * Potassium (06/04/2024 10:34 PM EDT) Potassium 3.7 3.5 - 5.0 mMol/L 06/04/2024 11:03 PM EDT [facility] Blood VENOUS BLOOD SPECIMEN / Unknown Venipuncture / Unknown 06/04/2024 10:34 PM EDT 06/04/2024 10:39 PM EDT Shahnaz Scanlon MD CHEMISTRY ORDERABLES [facility] [place] [address] * POC, GLUCOSE (06/04/2024 7:43 PM EDT) Glucometer, POC 175 65 - 199 mg/dL 06/04/2024 7:43 PM EDT [facility] Comment:Supplemental ranges: <140 mg/dL before meals <180 mg/dL all other times of the day. Blood CAPILLARY BLOOD / Unknown 06/04/2024 7:43 PM EDT 06/04/2024 7:43 PM EDT Melida Valdes MD POINT OF CARE TEST O RDERABLES [facility] [place] [address] * Potassium (06/04/2024 4:35 PM EDT) Potassium 4.0 3.5 - 5.0 mMol/L 06/04/2024 5:32 PM EDT [facility] Blood VENOUS BLOOD SPECIMEN / Unknown Venipuncture / Unknown 06/04/2024 4:35 PM EDT 06/04/2024 4:40 PM EDT Shahnaz Scanlon MD CHEMISTRY ORDERABLES [facility] [place] [address] * POC, GLUCOSE (06/04/2024 3:26 PM EDT) Glucometer, POC 154 65 - 199 mg/dL 06/04/2024 3:26 PM EDT [facility] Comment:Supplemental ranges: <140 mg/dL before meals <180 mg/dL all other times of the day. Blood CAPILLARY BLOOD / Unknown 06/04/2024 3:26 PM EDT 06/04/2024 3:27 PM EDT Melida Valdes MD POINT OF CARE TEST O RDERABLES Performing Organization Address City/[facility]/ZIP Co de Phone Number [facility] [place] [address] * POC, GLUCOSE (06/04/2024 11:09 AM EDT) Glucometer, POC 188 65 - 199 mg/dL 06/04/2024 11:09 AM EDT [facility] Comment:Supplemental ranges: <140 mg/dL before meals <180 mg/dL all other times of the day. Blood CAPILLARY BLOOD / Unknown 06/04/2024 11:09 AM EDT 06/04/2024 11:09 AM EDT Delroy Fofana MD POINT OF CARE TEST ORDERABLES Performing Organization Address City/[facility]/ZIP Co de Phone Number [facility] [place] [address] * Heparin (unfractionated) Level (06/04/2024 10:41 AM EDT) UF Heparin 0.43 IU/mL 06/04/2024 11:06 AM EDT [facility] Comment: Heparin (anti-Xa) levels should [...] MD HEMATOLOGY ORDERABLE S Performing Organization Address City/[facility]/ZIP Co de Phone Number [facility] [place] [address] * Potassium (06/04/2024 10:41 AM EDT) Potassium 4.0 3.5 - 5.0 mMol/L 06/04/2024 11:11 AM EDT [facility] Blood VENOUS BLOOD SPECIMEN / Unknown Venipuncture / Unknown 06/04/2024 10:41 AM EDT 06/04/2024 10:46 AM EDT Shahnaz Scanlon MD CHEMISTRY ORDERABLES Performing Organization Address [facility] Co de Phone Number [facility] [place] [address] * POC, GLUCOSE (06/04/2024 7:11 AM EDT) Glucometer, POC 182 65 - 199 mg/dL 06/04/2024 7:12 AM EDT [facility] Comment:Supplemental ranges: <140 mg/dL before meals <180 mg/dL all other times of the day. Blood CAPILLARY BLOOD / Unknown 06/04/2024 7:11 AM EDT 06/04/2024 7:12 AM EDT Delroy Fofana MD POINT OF CARE TEST ORDERABLES Performing Organization Address [facility] Co de Phone Number [facility] [place] [address] * Heparin (unfractionated) Level (06/04/2024 4:38 AM EDT) UF Heparin 0.41 IU/mL 06/04/2024 5:19 AM EDT [facility] Comment: Heparin (anti-Xa) levels should [...] MD HEMATOLOGY ORDERABLE S Performing Organization Address [facility]/ZIP Co de Phone Number [facility] [place] [address] * (ABNORMAL) CBC (with Diff) (06/04/2024 4:38 AM EDT) White Blood Cell 11.45(H) 4.00 - 9.50 x10(3)/mc L 06/04/2024 5:12 AM EDT [facility] Red Blood Cell 5.35 4.58 - 5.54 x10(6)/mc L 06/04/2024 5:12 AM EDT [facility] Hemoglobin 16.0 13.7 - 16.5 g/dL 06/04/2024 5:12 AM [facility] Hematocrit 49.6(H) 40.5 - [...] 3.20 x10(3)/mc L 06/04/2024 5:12 AM EDT [facility] Monocyte % 10.6 % 06/04/2024 5:12 AM EDT [facility] Monocyte Absolute 1.21(H) 0.30 - 0.90 x10(3)/mc L 06/04/2024 5:12 AM EDT [facility] Eos % 2.8 % 06/04/2024 5:12 AM EDT [facility] Eos Absolute 0.32 0.00 - 0.40 x10(3)/mc L 06/04/2024 5:12 AM EDT [facility] Basophil % 0.7 % 06/04/2024 5:12 AM EDT [facility] Baso Absolute 0.08 0.00 - 0.10 x10(3)/mc L 06/04/2024 5:12 AM EDT [facility] Immature Gran % 0.5 % 5:12 AM EDT [facility] Immature Gran Absolute 0.06(H) 0.00 - 0.04 x10(3)/mc L 06/04/2024 5:12 AM EDT [facility] Blood VENOUS BLOOD SPECIMEN / Unknown Venipuncture / Unknown 06/04/2024 4:38 AM EDT 06/04/2024 5:07 AM EDT Shahnaz Scanlon MD HEMATOLOGY ORDERABLE S [facility] [place] [address] * Magnesium (06/04/2024 4:38 AM EDT) Magnesium 0.84 0.69 - 1.07 mMol/L 06/04/2024 5:35 AM EDT [facility] Blood VENOUS BLOOD SPECIMEN / Unknown Venipuncture / Unknown 06/04/2024 4:38 AM EDT 06/04/2024 5:07 AM EDT Shahnaz Scanlon MD CHEMISTRY ORDERABLES [facility] [place] [address] * (ABNORMAL) Basic Metabolic Panel (06/04/2024 4:38 AM EDT) Glucose 118 65 - 199 mg/dL 06/04/2024 5:35 AM EDT [facility] Comment:Glucose Concentratio n >=200 mg/dL plus symptoms is consistent with Diabetes Mellitus. Blood Urea Nitrogen 22(H) 10 - 20 mg/dL 06/04/2024 5:35 AM EDT [facility] Creatinine 1.22 0.80 - 1.50 mg/dL 06/04/2024 5:35 AM EDT [facility] Sodium 137 135 - 145 mMol/L 06/04/2024 5:35 AM EDT [facility] Potassium 3.6 3.5 - 5.0 mMol/L 06/04/2024 5:35 AM EDT [facility] Chloride 97(L) 98 - 107 mMol/L 06/[facility]24 [facility] Carbon Dioxide 29 22 - 31 mMol/L 06/04/2024 5:[facility] Anion Gap 11 5 - 15 mMol/L 06/04/2024 5:[facility] Calcium 9.0 8.5 - 10.5 mg/dL 06/04/2024 5:35 AM EDT [facility] Est Glomerular Filtration Rate - Male 65 mL/min/1. 73 m?? 06/04/2024 5:35 AM EDT [facility] Comment: This patient's estimated GFR [...] Scanlon MD CHEMISTRY ORDERABLES Performing Organization Address [facility] Co de Phone Number [facility] [place] [address] * Heparin (unfractionated) Level (06/03/2024 8:58 PM EDT) UF Heparin 0.27 IU/mL 06/03/2024 9:33 PM EDT [facility] Comment: Heparin (anti-Xa) levels should [...] MD HEMATOLOGY ORDERABLE S Performing Organization Address [facility] Co de Phone Number [facility] [place] [address] * POC, GLUCOSE (06/03/2024 8:05 PM EDT) Glucometer, POC 136 65 - 199 mg/dL 06/03/2024 8:05 PM EDT [facility] Comment:Supplemental ranges: <140 mg/dL before meals <180 mg/dL all other times of the day. Blood CAPILLARY BLOOD / Unknown 06/03/2024 8:05 PM EDT 06/03/2024 8:05 PM EDT Delroy Fofana MD POINT OF CARE TEST ORDERABLES Performing Organization Address [facility] Co de Phone Number [facility] [place] [address] * POC, GLUCOSE (06/03/2024 5:48 PM EDT) Glucometer, POC 191 65 - 199 mg/dL 06/03/2024 5:48 PM EDT [facility] Comment:Supplemental ranges: <140 mg/dL before meals <180 mg/dL all other times of the day. Blood CAPILLARY BLOOD / Unknown 06/03/2024 5:48 PM EDT 06/03/2024 5:49 PM EDT Delroy Fofana MD POINT OF CARE TEST ORDERABLES Performing Organization Address City/[facility] Co de Phone Number [facility] [place] [address] * CT Chest wo Contrast (Generic) (06/03/2024 4:33 PM EDT) WORKSTATION ID [id number] DH RAD Anatomical Region Laterality Modality Chest Computed Tomogra phy Impressions 06/03/2024 4:47 PM EDT Cardiomegaly. Biventricular ICD leads in place. Thank you for letting us participate in the care of this patient. ??If you are a health care provider and have any questions regarding this report, please contact the number below. ??For patients who have questions please contact the health rn progressive care unit that requested your imaging first. ? Electronically signed by: Stuart Aponte MD, [facility] ??([phone]), at 06/03/2024 4:47 PM Narrative 06/03/2024 4:47 [...] patients who have questions please contactthe health rn progressive care unit that requested your imaging first. Electronically signed by: Stuart Aponte MD, [facility]([phone]), at 06/03/2024 4:47 PM Bobby Loja MD IMG CT ORDERABLES * Carotid Duplex, Bilateral (06/03/2024 2:19 PM EDT) VB Text Report Department: Vascular Surgery Lab Patient: [id number] (GEORGE MEHTA) CPT: 79113 Referring Physician: BOBBY LOJA ?? Phone: Indications: [...] Heparin 0.15 IU/mL 06/03/2024 1:13 PM EDT [facility] Comment: Heparin (anti-Xa) levels should [...] EDT Shahnaz Scanlon MD HEMATOLOGY ORDERABLE S [facility] [place] [address] * POC, GLUCOSE (06/03/2024 11:14 AM EDT) Glucometer, POC 166 65 - 199 mg/dL 06/03/2024 11:14 AM EDT [facility] Comment:Supplemental ranges: <140 mg/dL before meals <180 mg/dL all other times of the day. Blood CAPILLARY BLOOD / Unknown 06/03/2024 11:14 AM EDT 06/03/2024 11:14 AM EDT Delroy Fofana MD POINT OF CARE TEST ORDERABLES [facility] [place] [address] * (ABNORMAL) Troponin-T, High Sensitivity 3 Hour (06/03/2024 10:06 AM EDT) Troponin-T, High Sensitivity 266(H) <=22 ng/L 06/03/2024 10:50 AM EDT [facility] Comment: This patient's troponin T [...] troponin value can be found in the [facility] Laboratory Test Catalog Troponin - https://pending sale to [facility].testcatalog.org/catalogs/565/files/31468 Reference: Fourth [place] Definition of Myocardial Infarction. Journal of the [place] [employer] 2018;72:1902-7825 Troponin-T, HS 3 hr delta 06/03/2024 10:50 AM EDT [facility] Comment:Delta troponin value not calculated, sample collected outside of delta calculation time limit. Blood VENOUS BLOOD SPECIMEN / Unknown IP Care Team Draw / Unknown 06/03/2024 10:06 AM EDT 06/03/2024 10:15 AM EDT Delroy Fofana MD CHEMISTRY ORDERABLE S [facility] [place] [address] * ECHO COMPLETE W CONTRAST (06/03/2024 8:46 AM EDT) Anatomical Region Laterality Modality Cardiac Other 06/03/2024 6:52 AM EDT Narrative 06/03/2024 10:32 AM EDT [address] [place] [id number] ? Echocardiogram Report Name: GEORGE MEHTA Raad ?Study Date: 06/03/2024 06:52 AM : 1955 ? Height: 168 cm ? Account: [id number] Age: 69 yrs ? Weight: 102 kg Gender: Male ?BSA: 2.1 m2 Ordering Physician: SHAHNAZ SCANLON Referring Physician: NEHAL QUINTERO Performed By: Sara Kebede RDCS Reason For Study: STEMI Exam Location: [facility]. Interpretation Summary -Left ventricular systolic [...] fellow performed study of today's date). Procedure Complete-[id number]. Image enhancement Optison was used for left [...] Note Jonnie Jordan MD - 06/03/2024 [address] [place] [address] Echocardiogram Report Name: GEORGE MEHTA Study Date: 406:52 AM : 1955 Height: 168 cm Account: [id number] Age: 69 yrs Weight: 102 kg Gender: Male BSA: 2.1 m2 Ordering Physician: SHAHNAZ SCANLON Referring Physician: NEHAL QUINTERO Performed By: Sara Kebede RDCS Reason For Study: STEMI Exam Location: [facility]. Interpretation Summary -Left ventricular systolic [...] a fellow performed study oftoday's date). Procedure Complete-[id number]. Image enhancement Optison was used for left [...] 289(H) <=22 ng/L 06/03/2024 9:26 AM EDT [facility] Comment: This patient's troponin T [...] troponin value can be found in the [facility] Laboratory Test Catalog Troponin - https://[facility]-.testcatalog.org/catalogs/565/files/72521 Reference: Fourth [place] Definition of Myocardial Infarction. Journal of the [place] [employer] 2018;72:6760-1674 Troponin-T, HS 1 hr delta 5 ng/L 06/03/2024 9:26 AM EDT [facility] Comment:The 1 hour Troponin T delta value is the absolute difference between the Troponin T concentrations of the initial and subsequent sample collected between 45 - 120 minutes following the initial collection. Blood VENOUS BLOOD SPECIMEN / Unknown IP Care Team Draw / Unknown 06/03/2024 8:27 AM EDT 06/03/2024 8:37 AM EDT Delroy Fofana MD CHEMISTRY ORDERABLE S [facility] [place] [address] * POC, GLUCOSE (06/03/2024 7:54 AM EDT) Glucometer, POC 195 65 - 199 mg/dL 06/03/2024 7:55 AM EDT [facility] Comment:Supplemental ranges: <140 mg/dL before meals <180 mg/dL all other times of the day. Blood CAPILLARY BLOOD / Unknown 06/03/2024 7:54 AM EDT 06/03/2024 7:55 AM EDT Nuha Rojo MD POINT OF CARE TEST ORDERABLES Performing Organization Address City/[facility]/ZIP Co de Phone Number [facility] [place] [address] * (ABNORMAL) Troponin-T, High Sensitivity (06/03/2024 7:39 AM EDT) Troponin-T, High Sensitivity Initial 284(H) <=22 ng/L 06/03/2024 8:29 AM EDT [facility] Comment: This patient's troponin T [...] troponin value can be found in the [facility] Laboratory Test Catalog Troponin - https://pending sale to [facility].testcatalog.org/catalogs/565/files/62105 Reference: Fourth [place] Definition of Myocardial Infarction. Journal of the [place] [employer] 2018;72:0661-9075 Blood VENOUS BLOOD SPECIMEN / Unknown IP Care Team Draw / Unknown 06/03/2024 7:39 AM EDT 06/03/2024 7:48 AM EDT Delroy Fofana MD CHEMISTRY ORDERABLE S Performing Organization Address City/[facility]/ZIP Co de Phone Number [facility] [place] [address] * (ABNORMAL) Troponin-T, High Sensitivity 3 Hour (06/03/2024 5:11 AM EDT) Troponin-T, High Sensitivity 254(H) <=22 ng/L 06/03/2024 5:49 AM EDT [facility] Comment: This patient's troponin T [...] troponin value can be found in the [facility] Laboratory Test Catalog Troponin - https://[facility].testcatalog.org/catalogs/565/files/56679 Reference: Fourth [place] Definition of Myocardial Infarction. Journal of the [place] [employer] 2018;72:4791-3227 Troponin-T, HS 3 hr delta 46 ng/L 06/03/2024 5:49 AM EDT [facility] Comment:The 3 hour Troponin T delta value is the absolute difference between the Troponin T concentrations of the initial and subsequent sample collected between 2 h: 45 min and 6 h following the initial collection Blood VENOUS BLOOD SPECIMEN / Unknown IP Care Team Draw / Unknown 06/03/2024 5:11 AM EDT 06/03/2024 5:20 AM EDT Shahnaz Scanlon MD CHEMISTRY ORDERABLES [facility] [place] [address] * (ABNORMAL) Troponin-T, High Sensitivity 1 Hour (06/03/2024 3:07 AM EDT) Troponin-T, High Sensitivity 218(H) <=22 ng/L 06/03/2024 3:39 AM EDT [facility] Comment: This patient's troponin T [...] troponin value can be found in the [facility] Laboratory Test Catalog Troponin - https://[facility]-.testcatalog.org/catalogs/565/files/42627 Reference: Fourth [place] Definition of Myocardial Infarction. Journal of the [place] [employer] 2018;72:8719-0970 Troponin-T, HS 1 hr delta 10 ng/L 06/03/2024 3:39 AM EDT [facility] Comment:The 1 hour Troponin T delta value is the absolute difference between the Troponin T concentrations of the initial and subsequent sample collected between 45 - 120 minutes following the initial collection. Blood VENOUS BLOOD SPECIMEN / Unknown IP Care Team Draw / Unknown 06/03/2024 3:07 AM EDT 06/03/2024 3:12 AM EDT Shahnaz Scanlon MD CHEMISTRY ORDERABLES [facility] [place] [address] * XR Chest One View (06/03/2024 2:41 AM EDT) WORKSTATION ID [id number] RAD Anatomical Region Laterality Modality Chest N/A Digital Radiogra phy Impressions 06/03/2024 3:06 AM EDT No radiographically evident acute cardiopulmonary process. Thank you for letting us participate in the care of this patient. ??If you are a health care provider and have any questions regarding this report, please contact the number below. ??For patients who have questions please contact the health rn progressive care unit that requested your imaging first. ? Electronically signed by: Corazon Mauro MD, [facility] ([phone]), at 06/03/2024 3:06 AM Narrative 06/03/2024 3:06 [...] patients who have questions please contactthe health rn progressive care unit that requested your imaging first. Electronically signed by: Corazon Mauro MD, [facility]([phone]), at 06/03/2024 3:06 AM Shahnaz Scanlon MD IMG DX ORDERABLES * Heparin (unfractionated) Level (06/03/2024 2:13 AM EDT) Pathologist [facility] UF Heparin 0.56 IU/mL 06/03/2024 4:13 AM EDT [facility] Comment: Heparin (anti-Xa) levels should [...] EDT Shahnaz Scanlon MD HEMATOLOGY ORDERABLE S [facility] [place] [address] * (ABNORMAL) Troponin-T, High Sensitivity (06/03/2024 2:13 AM EDT) Pathologist [facility] Troponin-T, High Sensitivity Initial 208(H) <=22 ng/L 06/03/2024 3:02 AM EDT [facility] Comment: This patient's troponin T [...] troponin value can be found in the [facility] Laboratory Test Catalog Troponin - https://[facility]-.testcatalog.org/catalogs/565/files/16050 Reference: Fourth [place] Definition of Myocardial Infarction. Journal of the [place] [employer] 2018;72:8662-8962 Blood VENOUS BLOOD SPECIMEN / Unknown IP Care Team Draw / Unknown 06/03/2024 2:13 AM EDT 06/03/2024 2:32 AM EDT Shahnaz Scanlon MD CHEMISTRY ORDERABLES [facility] [address] * Magnesium (06/03/2024 2:13 AM EDT) Pathologist [facility] Magnesium 0.86 0.69 - 1.07 mMol/L 06/03/2024 3:02 AM EDT [facility] Blood VENOUS BLOOD SPECIMEN / Unknown IP Care Team Draw / Unknown 06/03/2024 2:13 AM EDT 06/03/2024 2:32 AM EDT Shahnaz Scanlon MD CHEMISTRY ORDERABLES [facility] [place] [address] * Basic Metabolic Panel (06/03/2024 2:13 AM EDT) Glucose 126 65 - 199 mg/dL 06/03/2024 3:02 AM EDT [facility] Comment:Glucose Concentratio n >=200 mg/dL plus symptoms is consistent with Diabetes Mellitus. Blood Urea Nitrogen 20 10 - 20 mg/dL 06/03/2024 3:02 AM [facility] Creatinine 1.13 0.80 - [...] AM EDT Shahnaz Scanlon MD CHEMISTRY ORDERABLES [facility] [place] [address] * (ABNORMAL) CBC (with Diff) (06/03/2024 2:13 AM EDT) White Blood Cell 11.16(H) 4.00 - 9.50 x10(3)/mc L [facility]/03[facility]2024 [facility] Red Blood Cell 5.09 4.58 - 5.54 x10(6)/mc L 06/03/2024 2:37 AM [facility] Hemoglobin 15.0 13.7 - 16.5 g/dL 06/03/2024 2:37 AM [facility] Hematocrit 47.4 40.5 - 48.5 % 06/03/2024 2:37 AM EDT [facility] Mean Cell Volume 93.1 82.9 - 93.1 fL 06/03/2024 2:37 AM [facility] Mean Cell Hemoglobin 29.5 27.5 - 32.1 pg 06/03/2024 2:37 AM [facility] Mean Cell Hemoglobin Concentration 31.6(L) 32.0 - 35.7 g/dL 06/03/2024 2:37 AM [facility] Platelet 217 145 - 357 x10(3)/mc L 06/03/2024 2:37 AM EDT [facility] Mean Platelet Volume 9.5 7.6 - 12.9 fL 06/03/2024 2:37 AM [facility] RDW Standard Deviation 49.0(H) [...] 0.10 x10(3)/mc L 06/03/2024 2:37 AM EDT [facility] Immature Gran % 0.4 % 2:37 AM EDT [facility] Immature Gran Absolute 0.05(H) 0.00 - 0.04 x10(3)/mc L 06/03/2024 2:37 AM EDT [facility] Blood VENOUS BLOOD SPECIMEN / Unknown IP Care Team Draw / Unknown 06/03/2024 2:13 AM EDT 06/03/2024 2:31 AM EDT Shahnaz Scanlon MD HEMATOLOGY ORDERABLE S [facility] [place] [address] * Lipid Panel (Reflex Direct LDL) (06/03/2024 [...] ACC/AHA Guidelines (most recently Bruce et al. [facility] 05/07/22): * For individuals with atherosclerotic [...] Scanlon MD CHEMISTRY ORDERABLES Performing Organization Address [facility] Phone Number [facility] [place] [address] * (ABNORMAL) APTT (06/03/2024 2:13 AM EDT) Partial Thromboplastin Time 105(HHH) 25 - 37 sec 06/03/2024 4:13 AM EDT [facility] Comment: The PTT is NOT [...] ORDERABLE S Performing Organization Address [facility] Phone Number [facility] [place] [address] * Prothrombin Time (06/03/2024 2:13 AM EDT) Prothrombin Time 11.5 9.4 - 12.5 sec 06/03/2024 4:13 AM EDT [facility] International Normalization Ratio 1.0 <=4.9 06/03/2024 4:13 AM EDT [facility] Comment: An INR < 2.0 [...] MD HEMATOLOGY ORDERABLE S Performing Organization Address City/[facility]/ZIP Co de Phone Number [facility] [place] [address] * Hepatic Function Panel (06/03/2024 2:13 AM EDT) Albumin 3.8 3.2 - 5.2 g/dL 06/03/2024 3:02 AM EDT [facility] Aspartate Aminotransferase 20 <=39 unit/L 06/03/2024 3:02 AM EDT [facility] Alanine Aminotransferase 12 0 - 55 unit/L 06/03/2024 3:02 AM EDT [facility] Alkaline Phosphatase 76 40 - 130 unit/L 06/03/2024 3:02 AM EDT [facility] Bilirubin, Total 0.4 <=1.3 mg/dL 06/03/2024 3:02 AM EDT [facility] Bilirubin, Direct <0.2 0.0 - 0.3 mg/dL 06/03/2024 3:02 AM EDT [facility] Protein, Total 7.0 6.1 - 8.0 g/dL 06/03/2024 3:02 AM EDT [facility] Blood VENOUS BLOOD SPECIMEN / Unknown IP Care Team Draw / Unknown 06/03/2024 2:13 AM EDT 06/03/2024 2:32 AM EDT Shahnaz Scanlon MD CHEMISTRY ORDERABLES Performing Organization Address City/[facility]/ZIP Co de Phone Number [facility] [place] [address] * (ABNORMAL) pro-Brain Natriuretic Peptide (06/03/2024 2:13 AM EDT) NT-proBNP 1,628(H) <=124 pg/mL 06/03/2024 4:15 AM EDT [facility] Blood VENOUS BLOOD SPECIMEN / Unknown IP Care Team Draw / Unknown 06/03/2024 2:13 AM EDT 06/03/2024 2:32 AM EDT Shahnaz Scanlon MD CHEMISTRY ORDERABLES [facility] [address] * Phosphorus (06/03/2024 2:13 AM EDT) Pathologist [facility] Phosphorus 4.4 2.5 - 4.5 mg/dL 06/03/2024 3:02 AM EDT [facility] Blood VENOUS BLOOD SPECIMEN / Unknown IP Care Team Draw / Unknown 06/03/2024 2:13 AM EDT 06/03/2024 2:32 AM EDT Shahnaz Scanlon MD CHEMISTRY ORDERABLES [facility] [place] [address] * EKG 12 Lead (06/03/2024 1:45 AM EDT) Ventricular rate 63 BPM MUSE SYSTEM Atrial Rate 63 BPM MUSE SYSTEM P-R Interval 168 ms MUSE SYSTEM QRS Duration 96 ms MUSE SYSTEM Q-T Interval 400 ms MUSE SYSTEM QTC Calculated (Bezet) 409 ms MUSE SYSTEM Calculated P [place] 65 degrees MUSE SYSTEM Calculated R [place] 70 degrees MUSE SYSTEM Calculated T [place] -86 degrees MUSE SYSTEM INTERPRETATION Atrial-sensed ventricular-paced rhythm Abnormal ECG No previous ECGs available I personally reviewed the tracing and edited the fellows interpretation Confirmed by fellow Sunni Agudelo ([id number]) on 06/04/2024 3:55:40 PM Confirmed by MD Tamia, Stuart Perry ([id number]) on 06/05/2024 11:46:48 AM MUSE SYSTEM 06/03/2024 1:45 AM EDT 06/05/2024 11:46 AM EDT Shahnaz Scanlon MD ECG ORDERABLES MUSE SYSTEM * CARDIAC CATHETERIZATION (06/03/2024 12:42 AM EDT) Anatomical Region Laterality Modality Other Narrative 06/04/2024 2:22 PM EDT [facility] ? Cardiac Catheterization/Intervention Report ? Patient Name: Tyson, George L. ? Procedure Date: 06/02/2024 ? A #: [id number] ? Primary Physician: Nuha Shen I ? Case #: [id number] ? File Name: [id number] ? Catheterization Order Number: [id number] ? [facility] ? Final Report [place], [place] ? Patient Name: ? George L. Tyson ? ID#: ?[id number] ? : ?1955 ? Procedure Date: ? June 02, 2024 ? Case #: ? [id number] ? Room: ? 5 ? Case Physician: [...] procedure was Emergent. The indication for ?the catheterization laboratory technician visit is ACS less than [...] guiding catheter and a 3.5 Fr [place] 20 Mhz using Manual ?pullback. ??Imaging was [...] guiding catheter and a 3.5 Fr [place] 20 Mhz using ?Manual pullback. ??Imaging was [...] Procedure Note Nuha Shen MD - 07/20/2024 [facility] Cardiac Catheterization/Intervention Report Patient Name: George Mehta Procedure Date: 06/02/2024 A #: [id number] Primary Physician: Nuha Shen I Case #: [id number] File Name: [id number] Catheterization Order Number: [id number] [facility] FinalReport [place], [place] Patient Name: George Mehta ID#:[id number] :1955 Procedure Date: June 02, 2024 Case [...] was designated as ASA Class IV. The [facility] clinicalfrailty scale is 5: Mildly Frail. Diagnostic Tests: Electrocardiography: EKG was assessed by ECG. EKG was Abnormal. EKG showed STDeviation >= 0.5 mm. Medications Prior to Procedure: Sacubitril and Valsartan, Aspirin, Beta Erik, Statin and Thrombolytic (any). Indications for Diagnostic Cath: The priority of the diagnostic procedure was Emergent. Theindication for the catheterization laboratory technician visit is ACS less than [...] units of heparin were administered. A total [id number] of Omnipaque were opened, 84cc of Omnipaque were administered tav22wa of Omnipaque were wasted. Radiation: Fluoro time [...] guiding catheter and a 3.5 Fr [place] 20 Mhz usingManual pullback. Imaging was successful. [...] guiding catheter and a 3.5 Fr [place] 20 Mhzusing Manual pullback. Imaging was successful. Indication: IVUS performed for pre intervention planning. Findings Pre-Intervention: scattered plaque, calcification and [id number] degrees calcification. Findings Post-Intervention: Stent not imaged [...] (06/02/2024 11:31 PM EDT) [facility] Glucometer, POC 156 65 - 199 mg/dL 06/02/2024 11:31 PM EDT [facility] Comment:Supplemental ranges: <140 mg/dL before meals <180 mg/dL all other times of the day. Blood CAPILLARY BLOOD / Unknown 06/02/2024 11:31 PM EDT 06/02/2024 11:31 PM EDT Nuha Rojo MD POINT OF CARE TEST ORDERABLES [facility] [place] [address] documented in this encounter Visit Diagnoses Not [...] 2100, Last dose on Fri06/23/24 at 0900, [employer] recommended duration is 3 days., Routine Given [...] 8:02 PM EST 2 tablets sodium chloride ([place]) 0.65 % nasal spray 1 spray 1 [...] Provider: Michelle Orozco RN)1750 (Given - Provider: Mcihelle Orozco RN)2042 (Given - Provider: Christina Myers [...] 2100, Last dose on Fri06/23/24 at 0900, [employer] recommended duration is 3 days., Routine 2043 [...] oral route first line., Routine sodium chloride ([place]) 0.65 % nasal spray 1 spray 1 [...] 6 hours upon arrival to Unit. Give MO if unable to take PO, Routine Group [...] Routine documented in this encounter Care Teams Mechanical Assembly Relationship Specialty Start Date End Date Mauro Berumen MD [address] [place] [address] PCP - General Family Medicine 06/02/24 documented as of this encounter
--- OUTSIDE RECORDS SUMMARY | 2024-08-20 11:05 | XMS_ITS | Clinical Summary ---
Author Organization [facility] Address [address] [place] [address] Care Team Providers Care Frame Hand Name Role Phone Jesu Guerra [facility] Primary Care Provider [phone] Social History Tobacco Use Types Packs/Day Years [...] 2032 Insurance [employer] Care Teams Frame Hand Relationship Specialty Start Date End Date Jesu Guerra, [place] [place] [address] PCP - General Family Medicine - Primary Care 10/03/23
--- OUTSIDE RECORDS SUMMARY | 2024-08-20 11:05 | XMS_ITS | Referral Summary ---
Author Organization [facility] Address [address] [place] [address] Care Team Providers Care Sponge Diver Name Role Phone Jesu Guerra [facility] Primary Care Provider [phone] Social History Tobacco Use Types Packs/Day Years Used Date Smoking Tobacco: Never Assessed Sex and Gender Information Value Date Recorded Sex Assigned at Not on file Legal Sex Male 23:22 EDT Gender Identity Not on file Sexual Orientation Not on file Plan of Treatment Not on file Insurance [employer] Care Teams Sponge Diver Relationship Specialty Start Date End Date Jesu Guerra, DNP [facility] [place] [place] [address] PCP - General Family Medicine - Primary Care 10/03/23
--- OUTSIDE RECORDS SUMMARY | 2024-08-20 11:05 | XMS_ITS | Encounter Summary ---
Author Organization [facility] Address [facility] [place] [address] Care Team Providers Care Key Punch Teacher Name Role Phone Mauro Berumen MD Primary Care Provider [phone] Encounter Details Date Type Department Care Team (Late st Contact Info) Description 06/02/2024 Notes Only Cardiology [facility] [place] [phone] Sascha Silva MD [facility] [place] [address] Social History Tobacco Use Types Packs/Day Years Used Date Smoking Tobacco: Never Assessed [facility] Utilities Answer Date Recorded In the [...] any time in the past 12 m [facility], were you homeless or living 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 to label cutter STEMI Alert called: Yes Financial Reporting Consultant Activated by: Drift Miner Initial Disposition: Admit Financial Reporting Consultant documented in this encounter Plan of Treatment Upcoming Encounters Date Type Department Care Team (Late st Contact Info) Description 09/29/2024 2:00 PM EST Office Visit Cardiology at [address] [phone] Moi Falcon MD [facility] [place] [address] documented as of this encounter Visit Diagnoses Not on filedocumented in this encounter Care Teams Key Punch Teacher Relationship Specialty Start Date End Date Mauro Berumen MD [address] [place] [address] PCP - General Family Medicine 06/02/24 documented as of this encounter
--- OUTSIDE RECORDS SUMMARY | 2024-08-20 11:05 | XMS_ITS | Encounter Summary ---
Author Organization [facility] Address [address] [place] [address] Care Team Providers Care Motion Study Technician Name Role Phone Jesu Guerra [facility] Primary Care Provider [phone] Encounter Details Date Type Department Care Team (Late st Contact Info) Description 10/31/[address] [facility] Pathology & Laboratory Medicine - [facility] [address] [place] [address] Yousif Carlin PA [address] [place] [address] [address] [place] [phone] Melanocytic nevi, unspecified Social History Tobacco Use [...] management options, if applicable. 11/04/2023 9:43 EDT [facility] Final Diagnosis A. SKIN OF CHEEK, LEFT, SHAVE BIOPSY: - Seborrheic keratosis, pigmented. 11/04/2023 9:43 EDT [facility] Attestation By the signature below, the attending physician certifies that they have 1) personally conducted a gross and/or microscopic examination of the described specimen(s), and/or personally interpreted the results of laboratory testing of the described specimen(s), and 2) personally rendered or confirmed the above diagnosis. 11/04/2023 9:43 [facility] at 0943 Microscopic Description [...] dermis and patchy lichenoid inflammation. 11/04/2023 9:43 [facility] Clinical History Atypical nevus, history melanoma; clinical diagnosis code: D22.9 11/04/2023 9:43 [facility] Gross Description A. Received in formalin labelled with proper patient identification (initials K, K) and L cheek is a 1.3 x 1.0 x 0.1 cm irregular shave of mottled rodriguez white to dark brown skin. The margin is inked. The specimen is trisected and entirely submitted in A1. HENOK GOLDEN(ASC) 11/03/2023 9:00 11/04/2023 9:43 [facility] Performing Lab [facility] 11/04/2023 9:43 [facility] Scanned Images 11/04/2023 9:43 T [facility] Tissue SPECIMEN FROM SKIN / Unknown 10/31/2023 14:10 EDT 10/31/2023 23:24 EDT us Yousif WHITING PATHOLOGY ORDERABLES Final Result [facility] [address] [place] [address] documented in this encounter Visit Diagnoses Diagnosis Melanocytic nevi, unspecified documented in this encounter Care Teams Motion Study Technician Relationship Specialty Start Date End Date Jesu Guerra, DNP [address] [place] [phone] PCP - General Family Medicine - Primary Care 10/03/23 documented as of this encounter
--- OUTSIDE RECORDS SUMMARY | 2024-09-03 10:29 | XMS_ITS | Encounter Summary ---
Author Organization [facility] Address [facility] [place] [address] Care Team Providers Care Php Engineer Name Role Phone Mauro Berumen MD Primary Care Provider [phone] Reason for Visit * Auth/Cert (Routine) Specialty Diagnoses / Procedures Referred By Controdolfo t Referred To Contact Diagnoses Elevated troponin NSTEMI (non-ST elevated myocardial infarction) Pre-syncope s/p CABG Procedures EMERGENCY IPI Evelyn Mckinnon MD [facility] [place] [address] [facility] Referral ID Status Reason Start Date Expiration Date Visits Re quested Visits Authorized [id number] 1 1 Encounter Details Date Type Department Care Team (Latest Contact Info) Description 08/14/2024 7:42 PM EST - 08/16/2024 2:48 PM EST Hospital Encounter Heart and Vascular Unit Level 3 [place] [address] Jim Benites MD [facility] [place] [address] Evelyn Mckinnon MD [facility] [place] [address] Elevated troponin; Chest pain, unspecified type Discharge Disposition: Home Social History Tobacco Use Types Packs/Day Years Used Date Smoking Tobacco: Former Cigarettes Smokeless Tobacco: Never Tobacco Cessation:Counseling Given: Not Answered [facility] Utilities Answer Date Recorded In the past 12 months has [facility] [employer], oil, or water Make YES! Happen threatened to shut off services in your [...] time in the past 12 m [facility], were you homeless or living in a mcc (including now)? No 08/16/2024 IPV Inpatient Questions [...] George Mehta Patient Age: 69 y.o. Language: Sudanese Admit date: 08/14/2024 Discharge date and time: 08/16/2024 1:18 PM Attending Physician: Evelyn Mkcinnon MD Discharge Physician: Evelyn Mckinnon MD Follow-up [...] Provider Contact Information: Evelyn Mckinnon MD Pager #[phone] Discharge Diagnoses (Hospital Problems) and Secondary Diagnoses (Chronic Problems): Active Hospital Problems Diagnosis Elevated troponin NSTEMI (non-ST elevated myocardial infarction) Resolved Hospital Problems No resolved problems to display. Active Non-Hospital Problems Diagnosis Cardiac resynchronization therapy defibrillator (ARCHITECTURE PROFESSOR-D) - Medtronic Amplia Cardiomyopathy, ischemic Acute on chronic heart failure with reduced ejection fraction (HFrEF, <= 40%) Coronary artery disease involving ewiiaapaayp coronary artery of ewiiaapaayp heart without angina pectoris Type 2 diabetes [...] of this mass after consultation with other operations manager/coordinator experts and the decision was made by [...] area. The patient was transported to the [facility] in a critical but stable [...] of 8AM-5PM please call the Cardiology Clinic [phone] to speak with a nurse. All other hours please call the Hospital Staff Forester [phone] and ask to speak to the cardiovascular hospitalist on-call. For any emergent questions, please call 911 or visit your nearest emergency department/urgent care center Diet-diabetic, cardiac diet, 2 g salt and 2 L fluid restriction per day Activity-as tolerated Follow up Appointments: Doctor Where Phone # Date Time PCP Mauro Berumen MD [address] [place] [address] Aug 23Friday 11.20 AM Receiving Manager [facility] Cardiology 4A Clinic [phone] Sep 29, Friday 2 PM (arrive at 1.40 PM) Home oxygen therapy: N/A Arrangements for VNA/home care: N/A General Instructions None Future Appointments and Orders Future Appointments and Orders Future Appointments Provider Department Dept Phone 09/29/2024 2:00 PM Moi Falcon MD Cardiology at [facility] Arrive at: Processing Rep Area [phone] Discharge References/Attachments Orthostatic Hypotension (Sudanese) Metoprolol Extended Release Oral Capsule (METOPROLOL SUCCINATE EXTENDED-RELEASE CAPSULE - ORAL) (Sudanese) Nitroglycerin Sublingual Tablet (NITROGLYCERIN - SUBLINGUAL) (Sudanese) More than 30 minutes were spent on this discharge including documentation, [id number] time with patient, patient education, time recorder, and coordination pharmacy, follow-up and other patient [...] of 8AM-5PM please call the Cardiology Clinic [phone] to speak with a nurse. All other hours please call the Hospital Staff Forester [phone] and ask to speak to the cardiovascular hospitalist on-call. For any emergent questions, please call 911 or visit your nearest emergency department/urgent care center Diet-diabetic, cardiac diet, 2 g salt and 2 L fluid restriction per day Activity-as tolerated Follow up Appointments: Doctor Where Phone # Date Time PCP Mauro Berumen MD [address] [place] [address] Aug 23Friday 11.20 AM Receiving Manager [facility] Cardiology 4A Clinic [phone] Sep 29Friday 2 PM (arrive at 1.40 PM) Home oxygen therapy: N/A Arrangements for VNA/home care: N/A * Attachments The following attachments cannot be sent through Care Everywhere. * Orthostatic Hypotension (Sudanese) * Metoprolol Extended Release Oral Capsule (METOPROLOL SUCCINATE EXTENDED- RELEASE CAPSULE - ORAL) (Sudanese) * Nitroglycerin Sublingual Tablet (NITROGLYCERIN - SUBLINGUAL) (Sudanese) documented in this encounter Medications at Time [...] Pt seen for use of NIV at [facility] is semi independent with its use. Pt [...] 10:24 AM EST CV HOSPITALIST 1 - [facility] DAILY PROGRESS NOTE Page [phone] to reach a provider 24/02 Admit Date: [...] of this mass after consultation with other operations manager/coordinator experts and the decision was made by [...] area. The patient was transported to the [facility] in a critical but stable [...] based on the results. Disposition: Discharge Location: [facility] Basic Mobility Raw Score: 24 PT: OT: PCP Mauro Berumen MD [phone] Evelyn Mckinnon MD 08/15/2024 10:42 AM Addendum [...] Rehab for the first time ever, at ([place], [place]) today, on Friday morning (08/13/2024, 10:00am) [...] me from the Cardiac Rehab Office at ([place], [place]) to the ER at ([place], [place]) to get checked out and the [...] had my triple bypass heart surgery at [facility] on 06/14/2024, 8:48am with [facility] Cardiac Surgeon Dr. Bobby Loja, I should go to [facility] and see Dr. Loja again. I remember when I was at [facility] back in June last year (2023), [...] of left parietal region, s/p resection (2017, [facility], [place], [place]), insulin-dependent DM2 on aspart insulin 20 units SQ tid before meals, tresiba insulin 30 units SQ daily, metformin 1000mg PO bid, and empagliflozin 25mg PO daily, with HbA1c 7.1% (06/06/2024, 3:33am), CAD s/p acute WY #1 (09/2003, s/p stent x 1, [facility], [place], [place]). acute [place] #2 (03/2018, s/p stent x 1, [place], [place]). acute [place] #3 (01/2019, s/p stent x 1, [place]). acute [place] #4 (06/03/24,s/p 3vCABG, [facility], [place], [place])(CT Surgeon Dr. Bobby Loja, 06/14/2024, 8:48am). Cf., troponin-T #1 208 ng/L (06/03/2024, 2:13am). Cf., troponin-T #2 218 ng/L (06/03/2024, 3:07am). Cf., troponin-T #3 254 ng/L (06/03/2024, 5:11am). Cf., troponin-T #4 284 ng/L (06/03/2024, 7:39am). Cf., troponin-T #5 289 ng/L (06/03/2024, 8:27am). Cf., EKG (06/03/2024, 1:45am): atrial-sensing, ventricle-pacing @ 63, MT 168, QTC 409 (by my review). Patient subsequently developed chronic systolic CHF with reduced LVEF 30-35% (as noted on 06/14/2024, 7:20am KAREN, [facility] CARDS Dr. Hosea Ardon), and chronic diastolic CHF, for which patient underwent AICD (06/2019, [facility], [place], [place]). Patient reports no paroxysmal nocturnal dyspnea, maintains a dry baseline weight of 210 pounds, and sleeps on a regular bed with 1 pillow all the time. Patient subsequently underwent left heart catheterization (06/02/2024, 12:42am, [facility] InterventionalCARDS Dr. Nuha Shen) which revealed: Hemodynamics: [...] 3.5 guiding catheter and a 3.5 Fr [facility] [place] 20 Mhz using Manual pullback. Imaging was [...] 3.5 guiding catheter and a 3.5 Fr [facility] [place] 20 Mhz using Manual pullback. Imaging was [...] be managed with medical therapy. (As per [facility] Interventional CARDS Dr. Nuha Shen). Patient subsequently underwent TTE (06/03/2024, 2:23am, [facility] CARDS fellow Dr. Sascha Silva) whichrevealed: Left [...] 6-14 large Aneurysmal 15-16 diffuse (As per [facility] CARDS fellow Dr. Sascha Silva). Patient subsequently underwent TTE (06/03/2024, 8:46am, [facility] CARDS Dr. Jonnie Jordan) which revealed: Left [...] elevated left ventricular filling pressure). (As per [facility] CARDS Dr. Jonnie Jordan). Patient subsequently underwent cardiac catheterization (06/13/2024, 9:15am, [facility] Interventional CARDS Dr. Nuha Shen), which revealed: [...] require modification of this regimen. (as per [facility] Interventional CARDS Dr. Nuha Shen). Patient subsequently underwent KAREN (06/14/2024, 7:20am, [facility] CARDS Dr. Hosea Ardon), which revealed: KAREN [...] of this mass after consultation with other operations manager/coordinator experts and the decision was made by surgeon to explore the mass. 8. No significant valvular disease. Patient subsequently underwent biopsy (06/14/2024, 9:53am) of unusual fibrinous mass at the orifice of the left atrial appendage (as noted on 06/14/2024, 7:20am, [facility] CARDS Dr. Hosea Ardon): A. Soft Tissue Mass, Mediastinal Mass, Excision: - Atrophic thymic tissue B. Heart, Atrial Appendage, Left, Excision: - Mild myocyte hypertrophy (as per [facility] Pathologist Dr. Sandra Salas). As noted above, patient underwent 3v CABG, excision of mediastinal tumor, and exploration / oversewof atrial appendage (06/14/2024, 8:48am, [facility] Cardiac Surgeon Dr. Bobby Loja). Patient now reports: I was at Cardiac Rehab for the first time ever, at ([place], [place]) today, on Friday morning (08/14/2024, 10:00am) [...] me from the Cardiac Rehab Office at ([place], [place]) to the ER at ([place]) to get checked out and the [...] had my triple bypass heart surgery at [facility] 06/14/2024, 8:48am with [facility] Cardiac Surgeon Dr. Bobby Loja, I should go to [facility] and seeDr. Loja again. I remember when I was at [facility] back in June last year (2023), [...] the patient on observation date 08/14/2024. In ER ([place], [place]), patient was afebrile at 37.0 degrees Celsius, HR 80, RR 20, O2 sat 97% on room air, and BP 117/61 (08/13/2024, 11:13am). Exam was noted for a clear and non-tender chest. Labs in ER ([place], [place]) included: WBC 9.25, N69 L19 M [...] 314 ng/L (08/14/2024, 6:00am). Additional testing in ER ([place], [place]) included: EKG (actual tracing not present in papers/documents transferred from ER ([place], [place]): Workup in the ED showed an EKG with pacing without T wave or ST segment changes pointing to occlusive cardiac disease; noticeable T wave inversion in multiple leads infero-lateral leads as seen prior. (as per Viry Adele Temple, [employer]). Patient was subsequently diagnosed with the following conditions @ ER ([place], [place]) on 08/13/2024: R/O acute NSTEMI. Acute [...] 08/14/2024, 8:43am). Patient was subsequently transferred from [facility] ([place], [place]) to [facility] HVU bed #373-A on 08/14/2024 to undergo [...] 7.93) [facility] W/VIDEO-ASST VEIN HARVEST, CABG N/A 06/14/2024 ENDOSCOPIC HARVEST VEIN(S) FOR CABG (WRVU 0.31) performed by Bobby Loja MD at [facility] MAIN OR PRO EXC MEDIASTINAL TUMOR N/A 06/14/2024 @EXCISION OF MEDIASTINAL TUMOR (WRVU 19.55) performed by Bobby Loja MD at [facility] MAIN OR PRO INSERT INTRA-AORTIC BALLOON ASST DEVICE PERCUTANEOUS N/A 06/13/2024 @INSERTION OF IABP,PERCUTANEOUS (WRVU 4.84) performed by Nuha Shen MD at [facility] CATH LABS PRO UNLISTED CARDIAC SURG PROCEDURE N/A 06/14/2024 EXPLORATION AND OVERSEW ATRIAL APPENDAGE (WRVU 5.94) performed by [facility] MD at [facility] Significant Family History: Patient's father is at [...] 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 Patient is retired with physical disability after sustaining his third acute WY (01/2019, s/p stent x 1, [place], [place]), and now suffers from chronic systolic CHF with reduced LVEF 30- 35% (as noted on 06/14/2024, 7:20am KAREN, [facility] CARDS Dr. Hosea Ardon), and chronic diastolic CHF, for which patient underwent AICD (06/2019, [place], [place]). Patient was to his first for 4 years before divorce; together, they have a 45 years old son, who is alive and well. Patient is to his second for 20 years; together, they have no children living or . Patient lives at home with his second in their own home in [place], [place], and ambulates without assistance from cane, walker, or wheelchair. Patient can drive a car independently. Patient comes to [facility] HVU bd #373-A as a direct ambulance transfer from [facility] ([place], [place]) today, 08/14/2024. REVIEW OF SYSTEMS: Review [...] EKG (08/14/2024, 11:57pm): atrial-sensing, ventricle-pacing @ 80, MT 188, QTC 449 (by my review). LABS: [...] of left parietal region, s/p resection (2017, [facility], [place], [place]), insulin-dependent DM2 on aspart insulin 20 units SQ tid before meals, tresiba insulin 30 units SQ daily, metformin 1000mg PO bid, and empagliflozin 25mg PO daily, with HbA1c 7.1% (06/06/2024, 3:33am), CAD s/p acute WY #1 (09/2003, s/p stent x 1, [facility], [place], [place]). acute [place] #2 (03/2018, s/p stent x 1, [place], [place]). acute [place] #3 (01/2019, s/p stent x 1, [place]). acute [place] #4 (06/03/24,s/p 3vCABG, [facility], [place], [place])(CT Surgeon Dr. Bobby Loja, 06/14/2024, 8:48am). Cf., troponin-T #1 208 ng/L (06/03/2024, 2:13am). Cf., troponin-T #2 218 ng/L (06/03/2024, 3:07am). Cf., troponin-T #3 254 ng/L (06/03/2024, 5:11am). Cf., troponin-T #4 284 ng/L (06/03/2024, 7:39am). Cf., troponin-T #5 289 ng/L (06/03/2024, 8:27am). Cf., EKG (06/03/2024, 1:45am): atrial-sensing, ventricle-pacing @ 63, MT 168, QTC 409 (by my review). Patient subsequently developed chronic systolic CHF with reduced LVEF 30-35% (as noted on 06/14/2024, 7:20am KAREN, [facility] CARDS Dr. Hosea Ardon), and chronic diastolic CHF, for which patient underwent AICD (06/2019, [facility], [place], [place]). Patient reports no paroxysmal nocturnal dyspnea, maintains a dry baseline weight of 210 pounds, and sleeps on a regular bed with 1 pillow all the time. Patient subsequently underwent left heart catheterization (06/02/2024, 12:42am, [facility] InterventionalCARDS Dr. Nuha Shen) which revealed: Hemodynamics: [...] 3.5 guiding catheter and a 3.5 Fr [facility] [place] 20 Mhz using Manual pullback. Imaging was [...] 3.5 guiding catheter and a 3.5 Fr [facility] [place] 20 Mhz using Manual pullback. Imaging was [...] be managed with medical therapy. (As per [facility] Interventional CARDS Dr. Nuha Shen). Patient subsequently underwent TTE (06/03/2024, 2:23am, [facility] CARDS fellow Dr. Sascha Silva) whichrevealed: Left [...] 6-14 large Aneurysmal 15-16 diffuse (As per [facility] CARDS fellow Dr. Sascha Silva). Patient subsequently underwent TTE (06/03/2024, 8:46am, [facility] CARDS Dr. Jonnie Jordan) which revealed: Left [...] elevated left ventricular filling pressure). (As per [facility] CARDS Dr. Jonnie Jordan). Patient subsequently underwent cardiac catheterization (06/13/2024, 9:15am, [facility] Interventional CARDS Dr. Nuha Shen), which revealed: [...] require modification of this regimen. (as per [facility] Interventional CARDS Dr. Nuha Shen). Patient subsequently underwent KAREN (06/14/2024, 7:20am, [facility] CARDS Dr. Hosea Arodn), which revealed: KAREN is done at the [...] of this mass after consultation with other operations manager/coordinator experts and the decision was made by surgeon to explore the mass. 8. No significant valvular disease. Patient subsequently underwent biopsy (06/14/2024, 9:53am) of unusual fibrinous mass at the orifice of the left atrial appendage (as noted on 06/14/2024, 7:20am, [facility] CARDS Dr. Hosea Ardon): A. Soft Tissue Mass, Mediastinal Mass, Excision: - Atrophic thymic tissue B. Heart, Atrial Appendage, Left, Excision: - Mild myocyte hypertrophy (as per [facility] Pathologist Dr. Sandra Salas). As noted above, patient underwent 3v CABG, excision of mediastinal tumor, and exploration / oversewof atrial appendage (06/14/2024, 8:48am, [facility] Cardiac Surgeon Dr. Bobby Loja). Patient now reports: I was at Cardiac Rehab for the first time ever, at ([place], [place]) today, on Friday morning (08/14/2024, 10:00am) [...] me from the Cardiac Rehab Office at ([place], [place]) to the ER at ([place]) to get checked out and the [...] had my triple bypass heart surgery at [facility] 06/14/2024, 8:48am with [facility] Cardiac Surgeon Dr. Bobby Loja, I should go to [facility] and seeDr. Loja again. I remember when I was at [facility] back in June last year (2023), and the doctors tried cardiac cath, but they couldn't do it because they said my arteries were too calcified, and that I had to get the triple bypass heart surgery instead. I feel fine now. The lightheadedness and foggy vision never came back. Patient was subsequently diagnosed with the following conditions @ ER ([place], [place]) on 08/13/2024: 1. R/O acute NSTEMI. [...] 08/14/2024, 8:43am). Patient was subsequently [facility] ([place] [place] to undergo [...] PO x 1 dose (08/14/2024, 8:30am) in ER ([place], [place]). Patient will not continue with home-scheduled metformin 1000mg PO bid [facility] the potential for metformin [...] scale q6, for any procedure(s) recommended by [facility] Cardiac Surgeon Dr. Bobby Loja. To address #4, patient was observed in ER. On arrival to [facility] HVU bed #373-A, I ordered iron studies (e.g., iron, TIBC, and ferritin) in this colonoscopy-naive patient. Moreover, I encouraged patient to follow up with his PCP Dr. Mauro Berumen ([place], [place]) within 5 days of hospital discharge, [...] melanoma ofleft parietal region, s/p resection (2017, [facility], [place], [place]), and who is now 69 years [...] Provider: Octaviano Quiñones MD Provider #: pager #[phone] 08/14/2024 documented in this encounter Miscellaneous Notes [...] N/A Patient is insured through: Primary Insurance: [employer] Payor: [employer] Secondary Insurance: N/A Prescription Coverage: Yes (managed medicare) This plan was formulated with input from patient and team. All are in agreement with plan. * Initial Assessments - Vargas Delong RN - 08/16/2024 1:10 PM EST Office of Care Management Initial Assessment Vargas Delong RN reviewed record and discussed patient with Care Team. Source of Information: Team, bedside nurse, medical record, and Patient CM/AUDOGRAPH OPERATOR met with patient face to face. Introduced self/reviewed role; services accepted. Admitted From: Transfer from another hospital Location: [facility] Reason for Hospitalization: I went to cardiac [...] 180 days) Any patient receiving care in [place] must abide by [place] law. The hierarchy [...] (i) The agent with financial power of glass grinder or a conservator appointed in accordance with [...] In the past 12 months has the [employer], [employer], or water Make YES! Happen threatened to shut off services in your [...] comments) (CPAP) Home Address confirmed as: [address] [facility] [address] Social & Family Supports: All names listed [...] Specific Information: N/A Health/Prescription Coverage: Primary Insurance: [employer] (sent to [employer] for scanning into pt's chart) Payor: [employer] Secondary Insurance: N/A ONLY if patient has Medicare A&B - Does this patient have secondary insurance?: ([place] managed medicare (sent to [employer] for scanning into chart)) ; Prescription Coverage: Yes (managed medicare) Are you financially able to cover the cost / copay of your medications?: Yes Preferred Pharmacy: [id number] - [place], [place] - [address] [address] Status: Patient is a : No Primary Care Provider confirmed: Mauro Berumen MD [phone] Patient/Caregiver Goals of Treatment: home when MR Potential Needs for Transition of Care: none Agency Referrals: pending clinical course Transportation: no concerns Transportation Anticipated: family or friend will provide Medications Anticipated: patient able to product picker, family/friend will product picker Concerns to be Addressed: no discharge [...] 2:00 PM EST Office Visit Cardiology at [address] [place] [address] Moi Falcon MD [facility] [place] [address] documented as of this encounter Procedures Procedure [...] (ABNORMAL) POC, GLUCOSE (08/16/2024 12:03 PM EST) [facility] Glucometer, POC 263(H) 65 - 199 mg/dL 08/16/2024 12:03 PM EST [facility] Comment:Supplemental ranges: <140 mg/dL before meals <180 mg/dL all other times of the day. Blood CAPILLARY BLOOD / Unknown 08/16/2024 12:03 PM EST 08/16/2024 12:03 PM EST Evelyn Mckinnon MD POINT OF CARE TEST O RDERABLES Performing Organization Address [facility] de Phone Number [facility] [place] [address] * EKG 12 Lead (08/16/2024 8:44 AM EST) Ventricular rate 80 BPM MUSE SYSTEM Atrial Rate 80 BPM MUSE SYSTEM P-R Interval 180 ms MUSE SYSTEM QRS Duration 90 ms MUSE SYSTEM Q-T Interval 374 ms MUSE SYSTEM QTC Calculated (Bezet) 431 ms MUSE SYSTEM Calculated P [place] 63 degrees MUSE SYSTEM Calculated R [place] 22 degrees MUSE SYSTEM Calculated T [place] 129 degrees MUSE SYSTEM INTERPRETATION AV dual-paced rhythm Abnormal ECG When compared with ECG of 14-AUG-2024 23:57, No significant change was found Confirmed by MD JEAN, KRISS ([id number]) on 08/16/2024 9:37:14 AM MUSE SYSTEM 08/16/2024 8:44 AM EST 08/16/2024 9:37 AM EST Evelyn Mckinnon MD ECG ORDERABLES Performing Organization Address [facility] de Phone Number MUSE SYSTEM * POC, GLUCOSE (08/16/2024 8:20 AM EST) Glucometer, POC 164 65 - 199 mg/dL 08/16/2024 8:20 AM EST [facility] Comment:Supplemental ranges: <140 mg/dL before meals <180 mg/dL all other times of the day. Blood CAPILLARY BLOOD / Unknown 08/16/2024 8:20 AM EST 08/16/2024 8:20 AM EST Evelyn Mckinnon MD POINT OF CARE TEST O RDERAPIETER [facility] [place] [address] * (ABNORMAL) CBC (with Diff) (08/16/2024 12:32 AM EST) White Blood Cell 8.55 4.00 - 9.50 x10(3)/mc L 08/16/2024 12:47 AM [facility] Red Blood Cell 4.17(L) 4.58 - 5.54 x10(6)/mc L 08/16/2024 12:47 AM [facility] Hemoglobin 12.3(L) 13.7 - 16.5 g/dL 08/16/2024 12:47 AM [facility] Hematocrit 37.9(L) 40.5 - 48.5 % 08/16/2024 12:47 AM [facility] Mean Cell Volume 90.9 82.9 - 93.1 fL 08/16/2024 12:47 AM [facility] Mean Cell Hemoglobin 29.5 27.5 - 32.1 pg 08/16/2024 12:47 AM [facility] Mean Cell Hemoglobin Concentration 32.5 32.0 - 35.7 g/dL 08/16/2024 12:47 AM [facility] Platelet 192 145 - 357 x10(3)/mc L 08/16/2024 12:47 AM [facility] Mean Platelet Volume 9.5 7.6 - 12.9 fL 08/16/2024 12:47 AM [facility] RDW Standard Deviation 44.7 36.0 - 45.0 fL 08/16/2024 12:47 AM [facility] RDW coefficient of variation 13.2 11.4 - 13.8 % 08/16/2024 12:47 AM [facility] NRBC% auto 0.0 % 08/16/2024 12:47 AM [facility] NRBC Absolute <0.01 <0.01 x10(3)/mc L 08/16/2024 12:47 AM [facility] Neutrophil % 53.8 % 08/16/2024 12:47 AM [facility] Neutrophil Absolute (ANC) - Automated 4.61 1.70 - 6.10 x10(3)/mc L 08/16/2024 12:47 AM [facility] Lymph % 30.1 % 08/16/2024 12:47 AM [facility] Lymph Absolute 2.57 0.90 - 3.20 x10(3)/mc L 08/16/2024 12:47 AM [facility] Monocyte % 10.2 % 08/16/2024 12:47 AM [facility] Monocyte Absolute 0.87 0.30 - 0.90 x10(3)/mc L 08/16/2024 12:47 AM [facility] Eos % 4.8 % 08/16/2024 12:47 AM [facility] Eos Absolute 0.41(H) 0.00 - 0.40 x10(3)/mc L 08/16/2024 12:47 AM [facility] Basophil % 0.7 % 08/16/2024 12:47 AM [facility] Baso Absolute 0.06 0.00 - 0.10 x10(3)/mc L 08/16/2024 12:47 AM [facility] Immature Gran % 0.4 % 12:47 AM [facility] Immature Gran Absolute <0.04 0.00 - 0.04 x10(3)/mc L 08/16/2024 12:47 AM [facility] Blood VENOUS BLOOD SPECIMEN / Unknown Venipuncture / Unknown 08/16/2024 12:32 AM EST 08/16/2024 12:41 AM EST Octaviano Quiñones MD HEMATOLOGY ORDERABLE S [facility] [place] [address] * Heparin (unfractionated) Level (08/16/2024 12:32 AM EST) Pathologist [facility] UF Heparin 0.32 IU/mL 08/16/2024 12:55 AM EST [facility] [...] EST Octaviano Quiñones MD HEMATOLOGY ORDERABLE S [facility] [place] [address] * Magnesium (08/16/2024 12:32 AM EST) Pathologist [facility] Magnesium 0.85 0.69 - 1.07 mMol/L 08/16/2024 1:12 AM EST [facility] Blood VENOUS BLOOD SPECIMEN / Unknown Venipuncture / Unknown 08/16/2024 12:32 AM EST 08/16/2024 12:41 AM EST Evelyn Mckinnon MD CHEMISTRY ORDERABLES [facility] [place] [address] * (ABNORMAL) Basic Metabolic Panel (08/16/2024 12:32 AM [facility]) Glucose 210(H) 65 - 199 mg/dL 08/16/2024 1:12 AM [facility] Comment:Glucose Concentratio n >=200 mg/dL plus symptoms is consistent with Diabetes Mellitus. Blood Urea Nitrogen 23(H) 10 - 20 mg/dL 08/16/2024 1:12 AM [facility] Creatinine 1.02 0.80 - 1.50 mg/dL 08/16/2024 1:12 AM [facility] Sodium 136 135 - 145 mMol/L 08/16/2024 1:12 AM [facility] Potassium 4.3 3.5 - 5.0 mMol/L 08/16/2024 1:12 AM [facility] Chloride 101 98 - 107 mMol/L 08/16/2024 1:12 AM [facility] Carbon Dioxide 25 22 - 31 mMol/L 08/16/2024 1:12 AM [facility] Anion Gap 10 5 - 15 mMol/L 08/16/2024 1:12 AM [facility] Calcium 8.9 8.5 - 10.5 mg/dL 08/16/2024 1:12 AM [facility] Est Glomerular Filtration Rate - Male 81 mL/min/1. 73 m?? 08/16/2024 1:12 AM [facility] Comment: This [...] Mckinnon MD CHEMISTRY ORDERABLES Performing Organization Address [facility] Co de Phone Number [facility] [place] [address] * POC, GLUCOSE (08/15/2024 8:09 PM EST) Glucometer, POC 129 65 - 199 mg/dL 08/15/2024 8:10 PM EST [facility] Comment:Supplemental ranges: <140 mg/dL before meals <180 mg/dL all other times of the day. Blood CAPILLARY BLOOD / Unknown 08/15/2024 8:09 PM EST 08/15/2024 8:10 PM EST Evelyn Mckinnon MD POINT OF CARE TEST O RDERABLES Performing Organization Address [facility] de Phone Number [facility] [place] [address] * Heparin (unfractionated) Level (08/15/2024 7:06 PM EST) UF Heparin 0.31 IU/mL 08/15/2024 7:21 PM EST [facility] [...] ORDERABLE S Performing Organization Address [facility] Co de Phone Number [facility] [place] [address] * POC, GLUCOSE (08/15/2024 5:08 PM EST) Glucometer, POC 151 65 - 199 mg/dL 08/15/2024 5:08 PM EST [facility] Comment:Supplemental ranges: <140 mg/dL before meals <180 mg/dL all other times of the day. Blood CAPILLARY BLOOD / Unknown 08/15/2024 5:08 PM EST 08/15/2024 5:09 PM EST Evelyn Mckinnon MD POINT OF CARE TEST O NIKA Performing Organization Address [facility] Co de Phone Number [facility] [place] [address] * POC, GLUCOSE (08/15/2024 3:29 PM EST) Glucometer, POC 168 65 - 199 mg/dL 08/16/2024 7:11 AM EST [facility] Comment:Supplemental ranges: <140 mg/dL before meals <180 mg/dL all other times of the day. Blood CAPILLARY BLOOD / Unknown 08/15/2024 3:29 PM EST 08/16/2024 7:11 AM EST Evelyn Mckinnon MD POINT OF CARE TEST O NIKA Performing Organization Address [facility] Co de Phone Number [facility] [place] [address] * ECHO COMPLETE W CONTRAST (08/15/2024 12:57 PM EST) EF 31 HEARTLAB SYSTEM Anatomical Region Laterality Modality Cardiac Other 08/15/2024 12:0 0 PM EST Narrative 08/15/2024 1:42 PM EST 1 [place] [address] ? Echocardiogram Report Name: GEORGE MEHTA ?Study Date: 08/15/2024 12:00 PMBP: 118/72 mmHg : 1955 ? Height: 168 cm ? Account: [id number] Age: 69 yrs ? Weight: 93 kg Gender: Male ?BSA: 2.0 m2 Ordering Physician: OCTAVIANO QUIÑONES Referring Physician: ANA COLON Performed By: Sandra Worthy RDCS Reason For Study: Elevated troponin Exam Location: [facility]. Interpretation Summary 1. Left ventricular systolic [...] side images at end of report). Procedure Complete-[id number]. Image enhancement Definity was used for left [...] Note Jim Benites MD - 08/15/2024 1 [place] [address] Echocardiogram Report Name: GEORGE MEHTA Study Date: 2:00 PMBP: 118/72 mmHg : 1955 Height: 168 cm Account: [id number] Age: 69 yrs Weight: 93 kg Gender: Male BSA: 2.0 m2 Ordering Physician: OCTAVIANO QUIÑONES Referring Physician: ANA COLON Performed By: Sandra Worthy RDCS Reason For Study: Elevated troponin Exam Location: [facility]. Interpretation Summary 1. Left ventricular systolic [...] side images at end of report). Procedure Complete-[id number]. Image enhancement Definity was used for left [...] POC, GLUCOSE (08/15/2024 12:48 PM EST) Pathologist [facility] Glucometer, POC 205(H) 65 - 199 mg/dL 08/15/2024 12:48 PM EST [facility] Comment:Supplemental ranges: <140 mg/dL before meals <180 mg/dL all other times of the day. Blood CAPILLARY BLOOD / Unknown 08/15/2024 12:48 PM EST 08/15/2024 12:48 PM EST Evelyn Mckinnon MD POINT OF CARE TEST O RDERABLES [facility] [place] [address] * Heparin (unfractionated) Level (08/15/2024 11:32 AM EST) [facility] UF Heparin 0.29 IU/mL 08/15/2024 11:48 AM EST [facility] [...] EST Octaviano Quiñones MD HEMATOLOGY ORDERABLE S [facility] [place] [address] * (ABNORMAL) POC, GLUCOSE (08/15/2024 11:15 AM EST) Glucometer, POC 253(H) 65 - 199 mg/dL 08/16/2024 7:11 AM EST [facility] Comment:Supplemental ranges: <140 mg/dL before meals <180 mg/dL all other times of the day. Blood CAPILLARY BLOOD / Unknown 08/15/2024 11:15 AM EST 08/16/2024 7:11 AM EST Evelyn Mckinnon MD POINT OF CARE TEST Abimael MAHER Performing Organization Address City/[facility]/ZIP Co de Phone Number [facility] [place] [address] * POC, GLUCOSE (08/15/2024 8:01 AM EST) Glucometer, POC 191 65 - 199 mg/dL 08/15/2024 8:01 AM EST [facility] Comment:Supplemental ranges: <140 mg/dL before meals <180 mg/dL all other times of the day. Blood CAPILLARY BLOOD / Unknown 08/15/2024 8:01 AM EST 08/15/2024 8:01 AM EST Evelyn Mckinnon MD POINT OF CARE TEST O NIKA [facility] [place] [address] * (ABNORMAL) Basic Metabolic Panel (08/15/2024 5:00 AM EST) Glucose 184 65 - 199 mg/dL 08/15/2024 7:20 AM [facility] Comment:Glucose Concentratio n >=200 mg/dL plus symptoms is consistent with Diabetes Mellitus. Blood Urea Nitrogen 23(H) 10 - 20 mg/dL 08/15/2024 7:20 AM [facility] Creatinine 1.07 0.80 - 1.50 mg/dL 08/15/2024 7:20 AM [facility] Sodium 139 135 - 145 mMol/L 08/15/2024 7:20 AM [facility] Potassium 4.1 3.5 - 5.0 mMol/L 08/15/2024 7:20 AM [facility] Chloride 102 98 - 107 mMol/L 08/15/2024 7:20 AM [facility] Carbon Dioxide 23 22 - 31 mMol/L 08/15/2024 7:20 AM [facility] Anion Gap 14 5 - 15 mMol/L 08/15/2024 7:20 AM [facility] Calcium 9.0 8.5 - 10.5 mg/dL 08/15/2024 7:20 AM [facility] Est Glomerular Filtration Rate - Male 76 mL/min/1. 73 m?? 08/15/2024 7:20 AM [facility] Comment: This [...] Ino MD CHEMISTRY ORDERABLES Performing Organization Address City/[facility]/ZIP Co de Phone Number [facility] [place] [address] * (ABNORMAL) Troponin - Single (08/15/2024 5:00 AM EST) Troponin-T, High Sensitivity 27(H) <=22 ng/L 08/15/2024 5:33 AM EST [facility] [...] be found in the [facility] Test Catalog Troponin - [email or web address]/catalogs/565/files/[email or web address] Reference: Fourth [place] Definition of Myocardial Infarction. Journal of the [employer] 2018;72:2989-2547 Blood VENOUS BLOOD SPECIMEN / Unknown Venipuncture / Unknown 08/15/2024 5:00 AM EST 08/15/2024 5:04 AM EST Octaviano Quiñones MD CHEMISTRY ORDERABLES [facility] [place] [address] * Heparin (unfractionated) Level (08/15/2024 4:59 AM EST) UF Heparin 0.29 IU/mL 08/15/2024 5:16 AM EST [facility] [...] EST Octaviano Quiñones MD HEMATOLOGY ORDERABLE S [facility] [place] [address] * Ferritin (08/15/2024 4:59 AM EST) Ferritin 70 31 - 409 ng/ml 08/15/2024 6:09 AM EST [facility] Blood VENOUS BLOOD SPECIMEN / Unknown Venipuncture / Unknown 08/15/2024 4:59 AM EST 08/15/2024 5:04 AM EST Octaviano Quiñones MD CHEMISTRY ORDERABLES [facility] [place] [address] * (ABNORMAL) CBC (with Diff) (08/15/2024 4:59 AM EST) White Blood Cell 7.12 4.00 - 9.50 x10(3)/mc L 08/15/2024 5:08 AM [facility] Red Blood Cell 4.37(L) 4.58 - 5.54 x10(6)/mc L 08/15/2024 5:08 AM [facility] Hemoglobin 12.9(L) 13.7 - 16.5 g/dL 08/15/2024 5:08 AM [facility] Hematocrit 40.2(L) 40.5 - 48.5 % 08/15/2024 5:08 AM [facility] Mean Cell Volume 92.0 82.9 - 93.1 fL 08/15/2024 5:08 AM [facility] Mean Cell Hemoglobin 29.5 27.5 - 32.1 pg 08/15/2024 5:08 AM [facility] Mean Cell Hemoglobin Concentration 32.1 32.0 - 35.7 g/dL 08/15/2024 5:08 AM [facility] Platelet 196 145 - 357 x10(3)/mc L 08/15/2024 5:08 AM [facility] Mean Platelet Volume 9.2 7.6 - 12.9 fL 08/15/2024 5:08 AM [facility] RDW Standard Deviation 45.7(H) 36.0 - 45.0 fL 08/15/2024 5:08 AM [facility] RDW coefficient of variation 13.4 11.4 - 13.8 % 08/15/2024 5:08 AM [facility] NRBC% auto 0.0 % 08/15/2024 5:08 AM [facility] NRBC Absolute <0.01 <0.01 x10(3)/mc L 08/15/2024 5:08 AM [facility] Neutrophil % 50.1 % 08/15/2024 5:08 AM [facility] Neutrophil Absolute (ANC) - Automated 3.56 1.70 - 6.10 x10(3)/mc L 08/15/2024 5:08 AM [facility] Lymph % 32.0 % 08/15/2024 5:08 AM [facility] Lymph Absolute 2.28 0.90 - 3.20 x10(3)/mc L 08/15/2024 5:08 AM [facility] Monocyte % 11.9 % 08/15/2024 5:08 AM [facility] Monocyte Absolute 0.85 0.30 - 0.90 x10(3)/mc L 08/15/2024 5:08 AM [facility] Eos % 4.6 % 08/15/2024 5:08 AM [facility] Eos Absolute 0.33 0.00 - 0.40 x10(3)/mc L 08/15/2024 5:08 AM [facility] Basophil % 1.0 % 08/15/2024 5:08 AM [facility] Baso Absolute 0.07 0.00 - 0.10 x10(3)/mc L 08/15/2024 5:08 AM [facility] Immature Gran % 0.4 % 5:08 AM [facility] Immature Gran Absolute <0.04 0.00 - 0.04 x10(3)/mc L 08/15/2024 5:08 AM [facility] Blood VENOUS BLOOD SPECIMEN / Unknown Venipuncture / Unknown 08/15/2024 4:59 AM EST 08/15/2024 5:04 AM EST Octaviano Quiñones MD HEMATOLOGY ORDERABLE S [facility] [place] [address] * EKG 12 Lead (08/14/2024 11:57 PM EST) Ventricular rate 80 BPM MUSE SYSTEM Atrial Rate 80 BPM MUSE SYSTEM P-R Interval 188 ms MUSE SYSTEM QRS Duration 98 ms MUSE SYSTEM Q-T Interval 390 ms MUSE SYSTEM QTC Calculated (Bezet) 449 ms MUSE SYSTEM Calculated P [place] 57 degrees MUSE SYSTEM Calculated R [place] 78 degrees MUSE SYSTEM Calculated T [place] -177 degrees MUSE SYSTEM INTERPRETATION AV dual-paced rhythm Abnormal ECG When compared with ECG of 14-JUN-2024 14:46, No significant change was found Confirmed by MD Nikki, Jonnie Godoy ([id number]) on 08/15/2024 12:30:01 PM MUSE SYSTEM 08/14/2024 11:5 7 PM EST 08/15/2024 12:30 PM EST Octaviano Quiñones MD ECG ORDERABLES Performing Organization Address City/[facility]/ZIP Co de Phone Number MUSE SYSTEM * (ABNORMAL) POC, GLUCOSE (08/14/2024 11:56 PM EST) Glucometer, POC 229(H) 65 - 199 mg/dL 08/14/2024 11:56 PM EST [facility] Comment:Supplemental ranges: <140 mg/dL before meals <180 mg/dL all other times of the day. Blood CAPILLARY BLOOD / Unknown 08/14/2024 11:56 PM EST 08/14/2024 11:56 PM EST Evelyn Mckinnon MD POINT OF CARE TEST O RDERABLES Performing Organization Address City/[facility]/ZIP Co de Phone Number [facility] [place] [address] * (ABNORMAL) Iron and TIBC (08/14/2024 9:40 PM EST) Iron 62 45 - 160 mcg/dL 08/15/2024 2:18 AM EST [facility] TIBC 354 250 - 450 mcg/dL 08/15/2024 2:18 AM EST [facility] Iron Saturation 18(L) 20 - 50 % 2:18 AM EST [facility] Blood VENOUS BLOOD SPECIMEN / Unknown Venipuncture / Unknown 08/14/2024 9:40 PM EST 08/14/2024 9:45 PM EST Octaviano Quiñones MD CHEMISTRY ORDERABLES Performing Organization Address [facility]/ZIP Co de Phone Number [facility] [place] [address] * (ABNORMAL) Heparin (unfractionated) Level (08/14/2024 9:40 PM EST) UF Heparin 1.03(HHH) IU/mL 08/14/2024 10:04 PM EST [facility] [...] ORDERABLE S Performing Organization Address [facility]/ZIP Co de Phone Number [facility] [place] [address] * (ABNORMAL) Hemoglobin A1c (08/14/2024 9:40 PM EST) Hemoglobin A1c 6.9(H) 4.3 - 5.6 % 08/14/2024 10:06 PM EST [facility] [...] red blood cell turnover may not be c s s representative of glycemic control. Reference Interval: 4.3 - 5.6% 5.7 - 6.4%: Consistent with prediabetes >=6.5%: Consistent with diagnosis of diabetes mellitus Estimated Average Glucose 151 mg/dL 08/14/2024 10:06 PM [facility] Blood VENOUS BLOOD SPECIMEN / Unknown Venipuncture / Unknown 08/14/2024 9:40 PM EST 08/14/2024 9:46 PM EST Octaviano Quiñones MD CHEMISTRY ORDERABLES Performing Organization Address City/State/[facility] Co de Phone Number [facility] [place] [address] * (ABNORMAL) CBC (with Diff) (08/14/2024 9:40 PM EST) White Blood Cell 9.52(H) 4.00 - 9.50 x10(3)/mc L 08/14/2024 9:51 PM [facility] Red Blood Cell 4.74 4.58 - 5.54 x10(6)/mc L 08/14/2024 9:51 PM [facility] Hemoglobin 13.7 13.7 - 16.5 g/dL 08/14/2024 9:51 PM [facility] Hematocrit 44.0 40.5 - 48.5 % 08/14/2024 9:51 PM [facility] Mean Cell Volume 92.8 82.9 - 93.1 fL 08/14/2024 9:51 PM [facility] Mean Cell Hemoglobin 28.9 27.5 - 32.1 pg 08/14/2024 9:51 PM [facility] Mean Cell Hemoglobin Concentration 31.1(L) 32.0 - 35.7 g/dL 08/14/2024 9:51 PM [facility] Platelet 235 145 - 357 x10(3)/mc L 08/14/2024 9:51 PM [facility] Mean Platelet Volume 9.3 7.6 - 12.9 fL 08/14/2024 9:51 PM [facility] RDW Standard Deviation 45.2(H) 36.0 - 45.0 fL 08/14/2024 9:51 PM [facility] RDW coefficient of variation 13.3 11.4 - 13.8 % 08/14/2024 9:51 PM [facility] NRBC% auto 0.0 % 08/14/2024 9:51 PM [facility] NRBC Absolute <0.01 <0.01 x10(3)/mc L 08/14/2024 9:51 PM [facility] Neutrophil % 57.7 % 08/14/2024 9:51 PM [facility] Neutrophil Absolute (ANC) - Automated 5.50 1.70 - 6.10 x10(3)/mc L 08/14/2024 9:51 PM [facility] Lymph % 28.7 % 08/14/2024 9:51 PM [facility] Lymph Absolute 2.73 0.90 - 3.20 x10(3)/mc L 08/14/2024 9:51 PM [facility] Monocyte % 8.5 % 08/14/2024 9:51 PM [facility] Monocyte Absolute 0.81 0.30 - 0.90 x10(3)/mc L 08/14/2024 9:51 PM [facility] Eos % 3.4 % 08/14/2024 9:51 PM [facility] Eos Absolute 0.32 0.00 - 0.40 x10(3)/mc L 08/14/2024 9:51 PM [facility] Basophil % 1.2 % 08/14/2024 9:51 PM [facility] Baso Absolute 0.11(H) 0.00 - 0.10 x10(3)/mc L 08/14/2024 9:51 PM EST [facility] Immature Gran % 0.5 % 9:51 PM EST [facility] Immature Gran Absolute 0.05(H) 0.00 - 0.04 x10(3)/mc L 08/14/2024 9:51 PM EST [facility] Blood VENOUS BLOOD SPECIMEN / Unknown Venipuncture / Unknown 08/14/2024 9:40 PM EST 08/14/2024 9:45 PM EST Octaviano Quiñones MD HEMATOLOGY ORDERABLE S [facility] [place] [address] * (ABNORMAL) Troponin - Single (08/14/2024 9:40 PM EST) Troponin-T, High Sensitivity 28(H) <=22 ng/L 08/14/2024 10:14 PM EST [facility] [...] be found in the [facility] Test Catalog Troponin - [email or web address].org/catalogs/[email or web address] Reference: Fourth [place] Definition of Myocardial Infarction. Journal of the [employer] [employer] 2018;72:8437-2587 Blood VENOUS BLOOD SPECIMEN / Unknown Venipuncture / Unknown 08/14/2024 9:40 PM EST 08/14/2024 9:45 PM EST Octaviano Quiñones MD [place] [address] documented in this encounter Visit Diagnoses Diagnosis [...] Routine documented in this encounter Care Teams Php Engineer Relationship Specialty Start Date End Date Mauro Berumen MD [address] [place] [address] PCP - General Family Medicine 06/02/24 documented as of this encounter
--- OUTSIDE RECORDS SUMMARY | 2024-09-03 10:29 | XMS_ITS | Encounter Summary ---
Author Organization Count Includes [facility] Address [facility] [address] Care Team Providers Care Cnc Operator Programmer Name Role Phone Mauro Berumen MD Primary Care Provider [phone] Encounter Details Date Type Department Care Team (Late st Contact Info) Description 08/13/2024 Telephone Cardiology at [address] [place] [phone] Katy Maurer APRN [facility] [place] [address] Social History Tobacco Use Types Packs/Day Years Used Date Smoking Tobacco: Every Day Cigarettes Smokeless Tobacco: Never [facility] Utilities Answer Date Recorded In the past [...] time in the past 12 m [facility], were you homeless or living [...] Notes * Telephone Encounter - Katy Maurer, CUSTOMER TRAINER - 08/13/2024 2:52 PM EST Images from the original note were not included. 08/13/2024 Arturo Mehta Initial Contact Date: 08/13/2024 Initial contact time: 2:52 PM Referring Provider: Dr. Marcelo Manning Patient Location: 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 ED from cardiac rehabilitation as a [...] 3.5 guiding catheter and a 3.5 Fr [facility] 20 Mhz using Manual pullback. Imaging was [...] 3.5 guiding catheter and a 3.5 Fr [facility] 20 Mhz using Manual pullback. Imaging was [...] mg Plavix Plan: Patient presented to [facility] ED from cardiac rehabilitation with pre-syncopal [...] thrombosis cannot be excluded.Additionally, he has known SALES RECRUITER/ICD. It is unclear if arrhythmia is culprit for pre-syncopal episode. [facility] will attempt to obtain TTE to evaluate EF and new WMAs if TTE available. I have advised for gentle IV NSS bolus with 250mL fluid in the setting of hypotension and creatinine 1.5 with pre-syncopal symptoms. I have encouraged to hold 20 mg daily Lasix as there is no evidence of fluid overload onexamination. Plan for transfer to [facility] cardiology med/surg level of care accepting for [...] PM EST Office Visit Cardiology at [address] [phone] Moi Falcon MD [facility] [place] [address] documented as of this encounter Visit Diagnoses Not on filedocumented in this encounter Care Teams Cnc Operator Programmer Relationship Specialty Start Date End Date Mauro Berumen MD [address] [place] [address] PCP - General Family Medicine 06/02/24 documented as of this encounter
--- OUTSIDE RECORDS SUMMARY | 2024-09-03 10:29 | XMS_ITS | Encounter Summary ---
Author Organization [facility] Address [facility] [place] [address] Care Team Providers Care Fruit Peeler Name Role Phone Mauro Berumen MD Primary Care Provider [phone] Encounter Details Date Type Department Care Team (Late st Contact Info) Description 07/20/2024 3:20 PM EST Office Visit Cardiac Surgery at [facility] [place] [address] Bobby Loja MD [facility] [place] [address] Post-operative state Social History Tobacco Use Types [...] in the past [address] [facility], were you homeless or living [...] has not yet seen his PCP or buckler and lacer since surgery. His appetite has been normal [...] cardiac surgery perspective - Follow up with Casting Associate (Kristen Cardenas) and PCP (Mauro Berumen) as [...] 2:00 PM EST Office Visit Cardiology at [address] [phone] Moi Falcon MD [facility] [place] [address] documented as of this encounter Procedures Procedure Name Priority Date/Time Associated Diagnosis Comments POC, GLUCOSE Routine 07/20/2024 4:31 PM EST documented in this encounter Results * POC, GLUCOSE (07/20/2024 4:31 PM EST) [facility] Signature Glucometer, POC 125 65 - 199 mg/dL 07/20/2024 4:31 PM EST [facility] Comment:Supplemental ranges: <140 mg/dL before meals <180 mg/dL all other times of the day. Blood CAPILLARY BLOOD / Unknown 07/20/2024 4:31 PM EST 07/20/2024 4:31 PM EST Bobby Loja MD POINT OF CARE TEST O RDERAPIETER Performing Organization Address City/State/[facility] Co de Phone Number [facility] [place] [address] documented in this encounter Visit Diagnoses Diagnosis Post-operative state Other postprocedural status documented in this encounter Care Teams Fruit Peeler Relationship Specialty Start Date End Date Mauro Berumen MD [address] [place] [address] PCP - General Family Medicine 06/02/24 documented as of this encounter
--- OUTSIDE RECORDS SUMMARY | 2024-09-03 10:29 | XMS_ITS | Clinical Summary ---
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, <= 40%) 06/05/2024 Coronary artery disease invo lving tonto apache coronary artery of tonto apache heart without angina pectoris 06/05/2024 Type 2 diabetes mellitus 06/05/2024 STEMI (ST elevation myocardial infarction) 06/02 Encounters Date Type Department Care Team Description 08/14/2024 7:42 PM EST - 08/16/2024 2:48 PM EST Hospital Encounter Heart and Vascular Unit Level 3 [place] [phone] Jim Benites MD Vinod, Poornima, MD Elevated troponin; Chest pain, unspecified type Discharge Disposition: Home 08/13/2024 Telephone Cardiology at [address] [phone] Katy Maurer APRN 08/13/2024 [place] [phone] 07/20/2024 3:20 PM EST Office [place] [address] Wendi Loja MD Post-operative state 07/20/2024 Notes Only Cardiology at [address] [phone] Esha Jones RN 07/20/2024 Travel 06/15/2024 Unscheduled Encounter Cardiology at [address] [phone] Ross Corbin PA Cardiac resynchronization therapy defibrillator (HARNESS AND BAG INSPECTOR-D) in place [Z95.810] 06/14/2024 7:30 AM EST - 06/14/2024 2:08 PM EST Surgery Main Operating Room [place] [phone] Wendi Loja MD @CABG, USING ARTERIAL GRAFT;SINGLE ARTERIAL GRAFT (WRVU 33.75) 06/14/2024 7:30 AM EST Anesthesia Event Main Operating Room [place] [phone] Hosea Ardon MD Budney, Colleen E, VOLUNTEER SERVICES SUPERVISOR 06/14/2024 Unscheduled Encounter Cardiology at [place] [phone] Ross Corbin PA Cardiac resynchronization therapy defibrillator (HARNESS AND BAG INSPECTOR-D) in place [Z95.810] 06/13/2024 9:00 AM EST - 06/13/2024 10:[address] Thru Order Taker [place] [phone] Nuha Shen MD CARDIAC CATHETERIZATION 06/08/2024 Ophth Exam Ophthalmology at [place] [phone] Yumiko De La Torre, COT 06/03/2024 [place] [address] Unknown 06/03/2024 Travel 06/02/2024 11:09 PM EDT - 06/21/2024 1:07 PM EST Hospital Encounter Heart and Vascular Unit Level 4 [place] [address] Nuha Shen MD Costa, Salvatore P, MD Bernas, Monika A, MD Flint, Danette L, MD Rassias, MD Freedom Lopez Henry J, MD ST elevation myocardial infarction (STEMI), unspecified artery; Coronary artery disease involving tonto apache coronary artery of tonto apache heart without angina pectoris; S/P CABG x 3 Discharge Disposition: Home with VNA from Last 3 Months Social History Tobacco Use Types Packs/Day Years Used Date Smoking Tobacco: Former Cigarettes Smokeless Tobacco: Never Tobacco Cessation:Counseling Given: Not Answered [facility] Utilities Answer Date Recorded In the [...] living in a alf (including now)? No 08/16/2024 DH IPV Inpatient Questions Answer Date Recorded [...] PM EST Office Visit Cardiology at [address] [phone] Moi Falcon MD [facility] [place] [address] Health Maintenance Due Date Last Done Comments [...] history exists Medical Devices Implanted Type Area Bench Assembly Inspector Device Identifier Shelf Expiration Date Model / Serial / Lot Janett Jacob Metcalf Quad Crtd-06/16/2019 Implanted:06/16/2019 (Quantity not on file) Cardiac Resynchronizati on Therapy - Defibrillator Chest Medtronic Cardio - 4287 [id number] / [id number] / Description:When scanned at [facility] ([place]), this SureScan System ([id number] and leads 4076, 6935M, and 4298) can [...] Clip 35mm Closure Exclusion System Preloaded Atriclip ([id number]) (Autoreq) - [id number] Implanted:Qty: 1 on 06/14/2024 by Wendi Loja MD at [facility] IMPLANTS N/A: Heart ATRICURE - ATRICURE 03/04/2027 [id number] / / [id number] Cable,Cut,Edg,Blnt,S s,3tpr ([id number]) - [id number] Implanted:Qty: 1 on 06/14/2024 by Wendi Loja MD at [facility] IMPLANTS Midline: Sternum [employer] - [id number] 09/10/2028 [id number] / / [id number] Mdt 4076 Capsurefix Novus Lead-06/16/2019 Implanted:Qty: 1 on 06/16/2019 Lead Chest Medtronic Cardio - [id number] / [id number] / Description:Atrial Lead 4076 See Generator Tab for MRI Conditions Octaviano Hawkins RT (R)(MR) 06/04/2024 Mdt 6935m Lead-06/16/2019 Implanted:Qty: 1 on 06/16/2019 Lead Chest Medtronic Cardio - 4287 6935M / [id number] / Description:RV Lead See Generator Tab for MRI Conditions Octaviano Hawkins RT (R)(MR) 06/04/2024 Mdt 4298 Attain Performa Lead-06/16/2019 Implanted:Qty: 1 on 06/16/2019 Lead Chest Medtronic Cardio - [id number] [id number] / [id number] / Description:LV Lead See Generator Tab [...] EST BLOOD GAS ARTERIAL POC Routine 4 1:46 AM EST POC, GLUCOSE Routine 06/15/2024 [...] 11:27 AM EST SCAN, PERIPHERAL BLOOD STAT 11:23 AM EST PLATELET COUNT PERFORMABLE STAT [...] 8:39 AM EST Unlisted Cardiac Surg Procedure (80166) 06/14/2024 7:34 AM EST 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) 06/14/2024 7:34 AM EST CAD Endoscopy W/Video-Asst Vein [place], Cabg (66787) 06/14/2024 7:34 AM EST CAD [place], Artery-Vein, Two (64362) 06/14/2024 7:34 AM EST CAD [place], Arterial, Single (37579) 06/14/2024 7:34 AM EST CAD TRANSESOPHAGEAL ECHOCARDIOGRAM IN THE OR Routine 06/14/2024 7:20 AM EST Coronary artery disease involving tonto apache coronary artery of tonto apache heart without angina pectoris POC, GLUCOSE Routine [...] CARDIAC CATHETERIZATION Routine 06/03/2024 12:42 AM EDT from Last 3 Months Results * (ABNORMAL) POC, GLUCOSE (08/16/2024 12:03 PM EST) Only the most recent of142 resultswithin the time period is included. Glucometer, POC 263(H) 65 - 199 mg/dL 08/16/2024 12:03 PM EST [facility] Comment:Supplemental ranges: <140 mg/dL before meals <180 mg/dL all other times of the day. Blood CAPILLARY BLOOD / Unknown 08/16/2024 12:03 PM EST 08/16/2024 12:03 PM EST Evelyn Mckinnon MD POINT OF CARE TEST O RDERABLES Performing Organization Address [facility] Co de Phone Number [facility] [place] [address] * EKG 12 Lead (08/16/2024 8:44 AM EST) Only the most recent of4 resultswithin the time period is included. Ventricular rate 80 BPM MUSE SYSTEM Atrial Rate 80 BPM MUSE SYSTEM P-R Interval 180 ms MUSE SYSTEM QRS Duration 90 ms MUSE SYSTEM Q-T Interval 374 ms MUSE SYSTEM QTC Calculated (Bezet) 431 ms MUSE SYSTEM Calculated P [place] 63 degrees MUSE SYSTEM Calculated R [place] 22 degrees MUSE SYSTEM Calculated T [place] 129 degrees MUSE SYSTEM INTERPRETATION AV dual-paced rhythm Abnormal ECG When compared with ECG of 14-AUG-2024 23:57, No significant change was found Confirmed by MD JEAN, KRISS ([id number]) on 08/16/2024 9:37:14 AM MUSE SYSTEM 08/16/2024 8:44 AM EST 08/16/2024 9:37 AM EST Evelyn Mckinnon MD ECG ORDERABLES Performing Organization Address City/[facility] Co de Phone Number MUSE SYSTEM * Scan Doc: Telemetry Strips [...] Heparin 0.32 IU/mL 08/16/2024 12:55 AM EST [facility] Comment: [...] EST Octaviano Quiñones MD HEMATOLOGY ORDERABLE S [facility] [place] [address] * (ABNORMAL) CBC (with Diff) (08/16/2024 12:32 AM EST) Only the most recent of16 resultswithin the time period is included. White Blood Cell 8.55 4.00 - 9.50 x10(3)/mc L 08/16/2024 12:47 AM EST [facility] Red Blood Cell 4.17(L) 4.58 [...] - 3.20 x10(3)/mc L 08/16/2024 12:47 AM EST [facility] Monocyte % 10.2 % 08/16/2024 [...] EST Octaviano Quiñones MD HEMATOLOGY ORDERABLE S [facility] [place] [address] * Magnesium (08/16/2024 12:32 AM EST) Only the most recent of13 resultswithin the time period is included. Magnesium 0.85 0.69 - 1.07 mMol/L 08/16/2024 1:12 AM [facility] Blood VENOUS BLOOD SPECIMEN / Unknown Venipuncture / Unknown 08/16/2024 12:32 AM EST 08/16/2024 12:41 AM EST Evelyn Mckinnon MD CHEMISTRY ORDERABLES [facility] [place] [address] * (ABNORMAL) Basic Metabolic Panel (08/16/2024 12:32 AM EST) Only the most recent of22 resultswithin the time period is included. Glucose 210(H) 65 - 199 mg/dL 08/16/2024 1:12 AM EST [facility] Comment:Glucose Concentratio n >=200 mg/dL plus symptoms is consistent with Diabetes Mellitus. Blood Urea Nitrogen 23(H) 10 - 20 mg/dL 08/16/2024 1:12 AM [facility] Creatinine 1.02 0.80 - 1.50 mg/dL 08/16/2024 1:12 AM [facility] Sodium 136 135 - 145 mMol/L 08/16/2024 1:12 AM EST [facility] Potassium 4.3 3.5 - 5.0 mMol/L 08/16/2024 1:12 AM EST [facility] Chloride 101 98 - 107 mMol/L 08/16/2024 1:12 AM [facility] Carbon Dioxide 25 22 - 31 mMol/L 08/16/2024 1:12 AM EST [facility] Anion Gap 10 5 - 15 mMol/L 08/16/2024 1:12 AM EST [facility] Calcium 8.9 8.5 - 10.5 mg/dL 08/16/2024 1:12 AM [facility] Est Glomerular Filtration Rate - Male 81 mL/min/1. 73 m?? 08/16/2024 1:12 AM EST [facility] Comment: [...] AM EST Evelyn Mckinnon MD CHEMISTRY ORDERABLES [facility] [place] [address] * ECHO COMPLETE W CONTRAST (08/15/2024 12:57 PM EST) EF 31 HEARTLAB SYSTEM Anatomical Region Laterality Modality Cardiac Other 08/15/2024 12:0 0 PM EST Narrative 08/15/2024 1:42 PM EST [address] [place] [address] ? Echocardiogram Report Name: GEORGE MEHTA ?Study Date: 08/15/2024 12:00 PMBP: 118/72 mmHg : 1955 ? Height: 168 cm ? Account: [id number] Age: 69 yrs ? Weight: 93 kg Gender: Male ?BSA: 2.0 m2 Ordering Physician: OCTAVIANO QUIÑONES Referring Physician: ANA COLON Performed By: Sandra Worthy RDCS Reason For Study: Elevated troponin Exam Location: [facility]. Interpretation Summary 1. Left ventricular systolic [...] side images at end of report). Procedure Complete-[id number]. Image enhancement Definity was used for left [...] Procedure Note Jim Benites MD - 08/15/[address] [place] [address] Echocardiogram Report Name: GEORGE MEHTA Study Date: 2:00 PMBP: 118/72 mmHg : 1955 Height: 168 cm Account: [id number] Age: 69 yrs Weight: 93 kg Gender: Male BSA: 2.0 m2 Ordering Physician: OCTAVIANO QUIÑONES Referring Physician: ANA COLON Performed By: Sandra Worthy RDCS Reason For Study: Elevated troponin Exam Location: [facility]. Interpretation Summary 1. Left ventricular systolic [...] side images at end of report). Procedure Complete-17457. Image enhancement Definity was used for left [...] of3 resultswithin the time period is included. Pathologist [facility] Troponin-T, High Sensitivity 27(H) <=22 ng/L 08/15/2024 5:33 AM EST [facility] Comment: [...] troponin value can be found in the [facility] Test Catalog Troponin - https://[email or web address].org/catalogs/565/[email or web address]/79127 Reference: Fourth [place] Definition of Myocardial Infarction. Journal of the [place] [employer] 2018;72:5179-5863 Blood VENOUS BLOOD SPECIMEN / Unknown Venipuncture / Unknown 08/15/2024 5:00 AM EST 08/15/2024 5:04 AM EST Octaviano Quiñones MD CHEMISTRY ORDERABLES [facility] [place] [address] * Ferritin (08/15/2024 4:59 AM EST) Ferritin 70 31 - 409 ng/ml 08/15/2024 6:09 AM EST [facility] Blood VENOUS BLOOD SPECIMEN / Unknown Venipuncture / Unknown 08/15/2024 4:59 AM EST 08/15/2024 5:04 AM EST Octaviano Quiñones MD CHEMISTRY ORDERABLES [facility] [place] [address] * (ABNORMAL) Iron and TIBC (08/14/2024 9:40 PM EST) Iron 62 45 - 160 mcg/dL 08/15/2024 2:18 AM EST [facility] TIBC 354 250 - 450 mcg/dL 08/15/2024 2:18 AM EST [facility] Iron Saturation 18(L) 20 - 50 % 2:18 AM EST [facility] Blood VENOUS BLOOD SPECIMEN / Unknown Venipuncture / Unknown 08/14/2024 9:40 PM EST 08/14/2024 9:45 PM EST Octaviano Quiñones MD CHEMISTRY ORDERABLES Performing Organization Address City/[facility]/ZIP Co de Phone Number [facility] [place] [address] * (ABNORMAL) Hemoglobin A1c (08/14/2024 9:40 PM EST) Only the most recent of2 resultswithin the time period is included. Hemoglobin A1c 6.9(H) 4.3 - 5.6 % 08/14/2024 10:06 PM EST [facility] Comment: [...] red blood cell turnover may not be field representatives director of glycemic control. Reference Interval: 4.3 - 5.6% 5.7 - 6.4%: Consistent with prediabetes >=6.5%: Consistent with diagnosis of diabetes mellitus Estimated Average Glucose 151 mg/dL 08/14/2024 10:06 PM EST [facility] Blood VENOUS BLOOD SPECIMEN / Unknown Venipuncture / Unknown 08/14/2024 9:40 PM EST 08/14/2024 9:46 PM EST Octaviano Quiñones MD CHEMISTRY ORDERABLES Performing Organization Address City/[facility]/ZIP Co de Phone Number [facility] [place] [address] * External Cardiology Result (08/13/2024 1:38 PM EST) Anatomical Region Laterality Modality Other Historical Provider EXTERNAL CARDIOLO GY RESULT * XR Chest PA & Lateral (Generic) (06/17/2024 1:46 PM EST) Only the most recent of2 resultswithin the time period is included. WORKSTATION ID [id number] RAD Anatomical Region Laterality Modality Chest N/A [...] have questions please contact the health director career services that requested your imaging first. ? Electronically signed by: Josselyn Spence MD, [facility] ([phone]), at 06/17/2024 4:49 PM Narrative 06/17/2024 4:49 [...] who have questions please contactthe health director career services that requested your imaging first. Electronically signed by: Josselyn Spence MD, [facility]([phone]), at 06/17/2024 4:49 PM Keila Hanley APRN IMG DX ORDERABLES * (ABNORMAL) Hemogram (06/17/2024 2:39 AM EST) Only the most recent of2 resultswithin the time period is included. White Blood Cell 13.53(H) 4.00 - 9.50 x10(3)/mc L 06/17/2024 2:53 AM [facility] Red Blood Cell 3.55(L) 4.58 - 5.54 x10(6)/mc L 06/17/2024 2:53 AM [facility] Hemoglobin 10.8(L) 13.7 - 16.5 g/dL 06/17/2024 2:53 AM [facility] Hematocrit 33.0(L) 40.5 - 48.5 [...] 357 x10(3)/mc L 06/17/2024 2:53 AM EST [facility] Mean Platelet Volume 10.4 [...] EST Wendi Loja MD HEMATOLOGY ORDERABLE S [facility] [place] [address] * Lactate, Whole Blood (06/17/2024 2:39 AM EST) Only the most recent of3 resultswithin the time period is included. Lactate, Whole Blood 1.3 0.5 - 2.2 mmol/L 06/17/2024 2:46 AM EST [facility] Blood VENOUS BLOOD SPECIMEN / Unknown Venipuncture / Unknown 06/17/2024 2:39 AM EST 06/17/2024 2:43 AM EST Wendi Loja MD CHEMISTRY ORDERABLES [facility] [place] [address] * (ABNORMAL) Cooximetry, POC (06/15/2024 9:31 AM [...] TEST O RDERABLES [facility] [place] [address] * (ABNORMAL) Blood Gas, Arterial POC (06/15/2024 [...] MD POINT OF CARE [place] [address] * XR Chest One View (06/15/2024 6:31 AM EST) Only the most recent of4 resultswithin the time period is included. WORKSTATION ID [id number] RAD Anatomical Region Laterality Modality Chest N/A [...] have questions please contact the health director career services that requested your imaging first. ? Narrative [...] who have questions please contactthe health director career services that requested your imaging first. Electronically signed by: Stuart Aponte MD, [facility]([phone]), at 06/15/2024 10:38 AM Wendi Loja MD IMG DX ORDERABLES * Potassium (06/14/2024 11:28 PM EST) Only the most recent of13 resultswithin the time period is included. Potassium 4.1 3.5 - 5.0 mMol/L 06/14/2024 11:54 PM EST [facility] Blood VENOUS BLOOD SPECIMEN / Unknown Venipuncture / Unknown 06/14/2024 11:28 PM EST 06/14/2024 11:34 PM EST Wendi Loja MD CHEMISTRY ORDERABLES [facility] [place] [address] * (ABNORMAL) Hemoglobin (06/14/2024 6:19 PM EST) Hemoglobin 13.1(L) 13.7 - 16.5 g/dL 06/14/2024 7:08 PM EST [facility] Blood VENOUS BLOOD SPECIMEN / Unknown Venipuncture / Unknown 06/14/2024 6:19 PM EST 06/14/2024 6:28 PM EST Wendi Loja MD HEMATOLOGY ORDERABLE S Performing Organization Address City/[facility] Co de Phone Number [facility] [place] [address] * Prepare RBC (06/14/2024 2:27 PM EST) Status Information Returned [facility] Product Identification RBC [facility] Unit Number [id number] [facility] Product Code [id number] [facility] Unit [facility] [id number] [facility] Product Code Q8970A59 [facility] Unit Blood Type OPOS [facility] Specimen Expiration Date [facility] Volulme 350 [facility] Issue Date / Time [facility] Blood 06/14/2024 6:2 5 AM EST Haja Byrnes MD BLOOD BANK PRODUCT O RDERABLES Performing Organization Address [facility] de Phone Number [facility] [place] [place] [address] * (ABNORMAL) Platelet count (06/14/2024 12:30 PM EST) Only the most recent of2 resultswithin the time period is included. Platelet 73(L) 145 - 357 x10(3)/mcL 06/14/2024 12:54 PM EST [facility] Blood ARTERIAL BLOOD / Unknown 06/14/2024 12:30 PM EST Comment:Pre-op diagnosis: CAD Wendi Loja MD HEMATOLOGY ORDERABLE S Performing Organization Address City/[facility]/ZIP Co de Phone Number [facility] [place] [address] * (ABNORMAL) Hemoglobin and Hematocrit, blood (06/14/2024 [...] MD HEMATOLOGY ORDERABLE S Performing Organization Address [facility] Co de Phone Number [facility] [place] [address] * APTT (06/14/2024 12:30 PM EST) Only [...] MD HEMATOLOGY ORDERABLE S Performing Organization Address City/[facility] Co de Phone Number [facility] [place] [address] * (ABNORMAL) Prothrombin Time (06/14/2024 12:30 PM [...] MD HEMATOLOGY ORDERABLE S Performing Organization Address City/[facility]/ZIP Co de Phone Number [facility] [place] [address] * Fibrinogen (06/14/2024 12:30 PM EST) Fibrinogen 211 200 - 393 mg/dL 06/14/2024 12:57 PM EST [facility] Comment: A fibrinogen level >100 mg/dL is adequate for hemostasis in most patients without underlying bleeding disorders. Blood ARTERIAL BLOOD / Unknown 06/14/2024 12:30 PM EST 06/14/2024 12:42 PM EST Comment:Pre-op diagnosis: CAD Wendi Loja MD HEMATOLOGY ORDERABLE S [facility] [place] [address] * (ABNORMAL) Scan, Peripheral Blood (06/14/2024 11:23 AM EST) RBC Morphology Abnormal 06/14/2024 11:59 AM EST [facility] Platelet Estimate Decreased(A) Normal 06/14/2024 11:59 AM EST [facility] Aretha cells 1-5 /HPF 06/14/2024 11:59 AM EST [facility] Blood ARTERIAL BLOOD / Unknown 06/14/2024 11:23 AM EST 06/14/2024 11:27 AM EST Wendi Loja MD HEMATOLOGY ORDERABLE S [facility] [place] [address] * Surgical Pathology (06/14/2024 9:53 AM EST) Case Report Surgical Pathology Report ? Case: [id number] ? Authorizing Provider: ??Wendi Loja MD ? Collected: ? 06/14/2024 0953 ? Ordering Location: ? Main Operating Room [place] ?? Received: ?06/14/2024 1413 ? [facility] ? Hospital ? Pathologist: ? [...] Inking: External surface inked black Sections/Process ing: Milk Pasteurizer sections in 4 cassettes labeled A1-A4. cmk B. Heart, Atrial Appendage, Left, . B - Labeled/Fixative : Heart, atrial appendage, left, fresh. Quantity/Size: Single, 3.3 x 1.5 x 0.8 cm. Tissue Description: Portion of heart tissue consisting of rodriguez-white, semitranslucent, smooth endocardium with rodriguez-brown muscular myocardium and thin translucent epicardium with adherent adipose tissue. No areas of discoloration identified. Sections/Process ing: Milk Pasteurizer sections in 1 cassette labeled B1. cmk 06/18/2024 10:18 AM EST [facility] Result Note Routine 06/18/2024 10:18 AM EST [facility] Tissue SOFT TISSUE MASS / Unknown 06/14/2024 9:53 AM EST 06/14/2024 2:13 PM EST Comment:Mediastinal mass Tissue specimen (specimen) LEFT ATRIAL APPENDAGE ABSENT / Unknown 06/14/2024 10:54 AM EST 06/14/2024 2:13 PM EST Comment:MARIALUISA Wendi Loja MD PATHOLOGY/CYTOLOGY O RDERABLES Performing Organization Address City/State/[facility] Co de Phone Number [facility] [place] [address] * Transesophageal Echo/OR (06/14/2024 7:20 AM EST) Anatomical Region Laterality Modality Cardiac Other 06/14/2024 7:20 AM EST Narrative 06/14/2024 4:36 PM EST Version: 2 Study ID: [id number] [address] [place] [address] ?OR Transesophageal Echo Report Name: GEORGE MEHTA [...] of this mass after consultation with other blind lacer experts and the decision was made by [...] MD - 06/14/2024 Version: 2 Study ID: [id number] [address] [place] [id number] ORTransesophageal Echo Report Name: GEORGE MEHTA Study [...] of this mass after consultation with other blind lacer experts and thedecision was made by surgeon [...] EUSEBIA [facility] [place] [place] [address] * Type and screen ([facility]/GISELLA/RAFITA) (06/13/2024 11:53 AM EST) [facility]H Type O [...] [facility] [place] [facility] 06/13/2024 1:16 PM EST [facility] Blood VENOUS BLOOD SPECIMEN / Unknown Venipuncture / Unknown 06/13/2024 11:53 AM EST 06/13/2024 11:56 AM EST Narrative [facility] - 06/13/2024 1:16 PM EST This Type and Screen result is only valid at the [facility] Haja Byrnes MD BLOOD BANK LAB ORDER EUSEB[place] [facility] [place] [place] [address] * CARDIAC CATHETERIZATION (06/13/2024 9:02 AM EST) Only the most recent of2 resultswithin the time period is included. Anatomical Region Laterality Modality Other Narrative 06/15/2024 9:07 AM EST ?[facility] ? Cardiac Catheterization/Intervention Report ? Patient Name: Tyson, George L. ? Procedure Date: 06/13/2024 ? A #: [id number] ? Primary Physician: Nuha Shen I ? Case #: [id number] ? File Name: [id number] ? Catheterization Order Number: [id number] ? [facility] ? Final Report [place], [place] ? Patient Name: ? George L. Tyson ? ID#: ?[id number] ? : ?1955 ? Procedure Date: ? June 13, 2024 ?Case #: ? [id number] ? Room: ? 6 ? Case Physician: [...] designated as ASA Class IV. The [facility] clinical frailty scale is 5: [...] Urgent. The indication for ?the labor relations teacher visit is ACS greater than 24 [...] ?ultrasound and IABP insertion in labor relations teacher. ? Nuha Shen M.D. ? Electronically Signed by: Nuha Shen M.D. ? Report Finalized: 06/15/2024 ??08:59 ? Procedure Note Nuha Shen MD - 06/15/2024 [facility] Cardiac Catheterization/Intervention Report Patient Name: George MehtaViry Procedure Date: 06/13/2024 A #: [id number] Primary Physician: Nuha Shen I Case #: [id number] File Name: [id number] Catheterization Order Number: [id number] [facility] FinalReport [place], [place] Patient Name: George Mehta ID#:[id number] :1955 Procedure Date: June 13, 2024 Case [...] designated as ASA Class IV. The [facility] clinical frailty scale is5: Mildly [...] was Urgent. The indicationfor the labor relations teacher visit is ACS greater than 24 [...] ultrasound and IABP insertion in labor relations teacher. Nuha Shen M.D. Electronically Signed by: [...] - 2.2 mmol/L 06/10/2024 5:50 PM EST [facility] Blood Gas Source Venous 06/10/20 5:50 PM EST [facility] Blood VENOUS BLOOD SPECIMEN / Unknown Blood Gas Venous / Unknown 06/10/2024 5:42 PM EST 06/10/2024 5:47 PM EST Melida Valdes MD CHEMISTRY ORDERABLES Performing Organization Address City/State/[facility] Co de Phone Number [facility] [place] [address] * MRI Cardiac Morphology Function wwo Contrast (06/07/2024 1:10 PM EST) WORKSTATION ID [id number] RAD Anatomical Region Laterality Modality Magnetic Resonan [...] - Mildly dilated left ventricle size with pmkksrsh-gs-usmloafp decreased LV systolic function. ??LV ejection fraction [...] have questions please contact the health director career services that requested your imaging first. ? Electronically signed by: Kriss Alonzo MD, [facility] ([phone]), at 06/07/2024 2:41 PM Narrative 06/07/2024 2:41 [...] VENTRICLE: Mildly dilated left ventricle size with kwmbfqdn-ay-vkpplqry decreased LV systolic function. ??LV ejection fraction [...] VENTRICLE: Mildly dilated left ventricle size with wjzcarix-og-cukugdgm decreasedLV systolic function. LV ejection fraction is [...] - Mildly dilated left ventricle size with dfogejrb-he-vcvjzvps decreasedLV systolic function. LV ejection fraction is [...] who have questions please contactthe health director career services that requested your imaging first. Electronically signed by: Kriss Alonzo MD, [facility]([phone]), at 06/07/2024 2:41 PM Delroy Fofana MD IMG MRI ORDERABLES * Scan Doc: Implantable Devices (06/04/2024 12:00 AM EDT) Narrative 06/04/2024 12:00 AM EDT Ordered by an unspecified provider. Scanning Provider MEDIA MGR SCAN EXT O RDR/RSLT * CT Chest wo Contrast (Generic) (06/03/2024 4:33 PM EDT) WORKSTATION ID [id number] RAD Anatomical Region Laterality Modality Chest Computed Tomogra phy Impressions 06/03/2024 4:47 PM EDT Cardiomegaly. Biventricular ICD leads in place. Thank you for letting us participate in the care of this patient. ??If you are a health care provider and have any questions regarding this report, please contact the number below. ??For patients who have questions please contact the health director career services that requested your imaging first. ? Electronically signed by: Stuart Aponte MD, [facility] ??([phone]), at 06/03/2024 4:47 PM Narrative 06/03/2024 4:47 [...] who have questions please contactthe health director career services that requested your imaging first. Electronically signed by: Stuart Aponte MD, [facility]([phone]), at 06/03/2024 4:47 PM Wendi Loja MD IMG CT ORDERABLES * Carotid Duplex, Bilateral (06/03/2024 2:19 PM EDT) VB Text Report Department: Vascular Surgery Lab Patient: [id number] (GEORGE MEHTA) CPT: 46936 Referring Physician: WENDI LOJA ?? Phone: Indications: [...] troponin value can be found in the [facility] Laboratory Test Catalog Troponin - https://one-.testcatalog.org/catalogs/565/files/79068 Reference: Fourth [place] Definition of Myocardial Infarction. Journal of the [place] [employer] 2018;72:8853-9823 Troponin-T, HS 3 hr delta 06/03/2024 10:50 AM EDT [facility] Comment:Delta troponin value not calculated, sample collected outside of delta calculation time limit. Blood VENOUS BLOOD SPECIMEN / Unknown IP Care Team Draw / Unknown 06/03/2024 10:06 AM EDT 06/03/2024 10:15 AM EDT Delroy Fofana MD CHEMISTRY ORDERABLE S [facility] [place] [place] [address] * ECHO COMPLETE W CONTRAST (06/03/2024 8:46 AM EDT) Anatomical Region Laterality Modality Cardiac Other 06/03/2024 6:52 AM EDT Narrative 06/03/2024 10:32 AM EDT [address] [place] [address] ? Echocardiogram Report Name: GEORGE MEHTA ?Study Date: 06/03/2024 06:52 AM : 1955 ? Height: 168 cm ? Account: [id number] Age: 69 yrs ? Weight: 102 kg [...] fellow performed study of today's date). Procedure Complete-25550. Image enhancement Optison was used for left [...] Note Jonnie Jordan MD - 06/03/2024 [address] [place] [address] Echocardiogram Report Name: GEORGE MEHTA Study Date: 406:52 AM : 1955 Height: 168 cm Account: [id number] Age: 69 yrs Weight: 102 kg Gender: [...] a fellow performed study of's date). Procedure Complete-71313. Image enhancement Optison was used for left [...] troponin value can be found in the [facility] Laboratory Test Catalog Troponin - https://one-dh.testcatalog.org/catalogs/565/files/37629 Reference: Fourth [place] Definition of Myocardial Infarction. Journal of the [place] [employer] 2018;72:2113-3657 Troponin-T, HS 1 hr delta 5 ng/L [...] CHEMISTRY ORDERABLE S [facility] [place] [address] * (ABNORMAL) Troponin-T, High Sensitivity (06/03/2024 7:39 [...] troponin value can be found in the [facility] Laboratory Test Catalog Troponin - https://[facility]-.testcatalog.org/catalogs/565/files/16095 Reference: Fourth [place] Definition of Myocardial Infarction. Journal of the [place] [employer]iology 2018;72:4701-4746 Blood VENOUS BLOOD SPECIMEN / Unknown IP Care Team Draw / Unknown 06/03/2024 7:39 AM EDT 06/03/2024 7:48 AM EDT Delroy Fofana MD CHEMISTRY ORDERABLE S [facility] [place] [address] * Echocardiogram Transthoracic (06/03/2024 2:23 AM EDT) Anatomical Region Laterality Modality Cardiac Other 06/03/2024 2:23 AM EDT Narrative 06/03/2024 10:32 AM EDT 1 [place] [address] ? Echocardiogram Report Name: GEORGE MEHTA ?Study Date: 06/03/2024 02:23 AM : 1955 Age: 69 yrs Gender: Male Performed By: Sascha Silva MD Reason For Study: STEMI Interpreting Fellow: Sascha Silva. Interpretation Summary Limited echo performed by fellow continuous dryout operator helper to assess LV function. Left ventricle is mild to moderately dilated. Left ventricular ejection fraction is estimated visually at 25%. There is global dyskinesia with mid-basilar posterior-posterolateral akinesis. Right ventricle is not well seen. RV systolic function is probably normal. There is no prior echo for comparison. Procedure Limited - 344[address]. Suboptimal quality. Ventricular paced. Left Ventricle Left [...] Note Jonnie Jordan MD - 06/03/2024 1 [place] [address] Echocardiogram Report Name: ASHLEY MEHTAJOSEFINA Shankar Study Date: 06/03/2024 02:23AM : 1955 Age: 69 yrs Gender: Male Performed By: Sascha Silva MD Reason For Study: STEMI Interpreting Fellow: Sascha Silva. Interpretation Summary Limited echo performed by fellow continuous dryout operator helper to assess LV function. Left ventricle is mild to moderately dilated. Left ventricular ejectionfraction is estimated visually at 25%. There is global dyskinesia withmid-basilar posterior-posterolateral akinesis. Right ventricle is not well seen. RV systolic function is probablynormal. There is no prior echo for comparison. Procedure Limited - 63577. Suboptimal quality. Ventricular paced. Left Ventricle Left [...] AM EDT Isaac Mares MD CHEMISTRY ORDERABLES [facility] [place] [address] * (ABNORMAL) pro-Brain Natriuretic Peptide (06/03/2024 2:13 AM EDT) Pathologist [facility] NT-proBNP 1,628(H) <=124 pg/mL 06/03/2024 4:15 AM EDT [facility] Blood VENOUS BLOOD SPECIMEN / Unknown IP Care Team Draw / Unknown 06/03/2024 2:13 AM EDT 06/03/2024 2:32 AM EDT Isaac Mares MD CHEMISTRY ORDERABLES Performing Organization Address City/[facility]/ZIP Co de Phone Number [facility] [place] [address] * Hepatic Function Panel (06/03/2024 2:13 AM EDT) [facility] Albumin 3.8 3.2 - 5.2 g/dL 06/03/2024 [...] AM EDT Isaac Mares MD CHEMISTRY ORDERABLES [facility] [place] [address] * Lipid Panel (Reflex Direct LDL) (06/03/2024 [...] AM EDT 06/03/2024 2:32 AM EDT Narrative [facility] - 06/03/2024 3:02 AM EDT [...] artery disease) Isaac Mares MD CHEMISTRY ORDERABLES [facility] [address] [facility] [address] [place] [address] from Last 3 Months Advance Directives * [...] wishes to be Full Code Care Teams Costume Technician Relationship Specialty Start Date End Date Mauro Berumen MD [address] [place] [address] PCP - General Family Medicine 06/02/24
--- OUTSIDE RECORDS SUMMARY | 2024-09-03 10:29 | XMS_ITS | Encounter Summary ---
Author Organization [facility] Address [facility] [place] [address] Care Team Providers Care Feed Adviser Name Role Phone Mauro Berumen MD Primary Care Provider [phone] Encounter Details Date Type Department Care Team (Late st Contact Info) Description 07/20/2024 Notes Only Cardiology at [address] [place] [address] Esha Jones RN Social History Tobacco Use Types Packs/Day Years Used Date Smoking Tobacco: Every Day Cigarettes Smokeless Tobacco: Never [facility] Utilities Answer Date Recorded In [...] any time in the past 12 m [facility], were you homeless or living in [...] BGL was measured to be 40. Nurse Soft Metals Engraver Hand Chelsi administered chewable glucose tablets while this [...] PM EST Office Visit Cardiology at [address] [address] [facility] [place] [address] documented as of this encounter Visit Diagnoses Not on filedocumented in this encounter Care Teams Feed Adviser Relationship Specialty Start Date End Date Mauro Berumen MD [address] [place] [address] PCP - General Family Medicine 06/02/24 documented as of this encounter
--- OUTSIDE RECORDS SUMMARY | 2024-09-03 10:29 | XMS_ITS | Encounter Summary ---
Author Organization [facility] Address [facility] [place] [address] Care Team Providers Care Shrimp Trawler Captain Name Role Phone Mauro Berumen MD Primary Care Provider [phone] Encounter Details Date Type Department Care Team (Late st Contact Info) Description 08/13/2024 External Results Transfer Center [facility] [place] [phone] Social History Tobacco Use Types Packs/Day Years Used Date Smoking Tobacco: Every Day Cigarettes Smokeless Tobacco: Never [facility] Utilities Answer Date Recorded In the past 12 months has th e electric, gas, oil, or water [employer] threatened to shut off services in your [...] time in the past 12 m [facility], were you homeless or living in [...] 2:00 PM EST Office Visit Cardiology at [address] [address] [facility] [place] [address] documented as of this encounter Procedures Procedure Name Priority Date/Time Associated Diagnosis Comments MISC EXTERNAL CARDIOLOGY RESULT Routine 08/13/2024 1:38 PM EST documented in this encounter Results * External Cardiology Result (08/13/2024 1:38 PM EST) Anatomical Region Laterality Modality Other Historical Provider EXTERNAL CARDIOLO GY RESULT documented in this encounter Visit Diagnoses Not on filedocumented in this encounter Care Teams Shrimp Trawler Captain Relationship Specialty Start Date End Date Mauro Berumen MD [address] [place] [address] PCP - General Family Medicine 06/02/24 documented as of this encounter
--- OUTSIDE RECORDS SUMMARY | 2024-09-03 10:29 | XMS_ITS | Encounter Summary ---
Author Organization [facility] Address [facility] [place] [address] Care Team Providers Care Trawl Net Maker Name Role Phone Mauro Berumen MD Primary Care Provider [phone] Encounter Details Date Type Department Care Team (Latest Contact Info) Description 07/20/2024 Travel Social History Tobacco Use Types Packs/Day Years Used Date Smoking Tobacco: Every Day Cigarettes Smokeless Tobacco: Never [facility] Utilities Answer Date Recorded In the past [...] in a fpc (including now)? No 06/03/2024 IPV Inpatient Questions [...] 2:00 PM EST Office Visit Cardiology at [address] [address] Moi Falcon MD [facility] [place] [address] documented as of this encounter Visit Diagnoses Not on filedocumented in this encounter Care Teams Trawl Net Maker Relationship Specialty Start Date End Date Mauro Berumen MD [address] [place] [address] PCP - General Family Medicine 06/02/24 documented as of this encounter
--- OUTSIDE RECORDS SUMMARY | 2024-09-03 10:31 | XMS_ITS | Encounter Summary ---
Author Organization [facility] Address [facility] [place] [address] Care Team Providers Care Weights And Measures Sealer Name Role Phone Mauro Berumen MD Primary Care Provider [phone] Reason for Referral * Consultation (Routine) - Authorized Specialty Diagnoses / Procedures Referred By Contac t Referred To Contact Cardiology Diagnoses S/P CABG x 3 Bobby Loja MD [facility] [place] [address] Cardiac Rehab, [address] [place] [address] Referral ID Status Reason Start Date Expiration Date Visits Requested Visits Authorized [id number] Authorized Consult, Test & Treat 06/21/2024 12/18/2024 36 36 * Home Health Care (Routine) - Authorized Specialty Diagnoses / Procedures Referred By Contac t Referred To Contact Diagnoses S/P CABG x 3 Bobby Loja MD [facility] [place] [address] Referral ID Status Reason Start Date Expiration Date Visits Requested Visits Authorized [id number] Authorized Consult, Test & Treat 06/21/2024 12/18/2024 999 999 Reason for Visit * Auth/Cert Specialty Diagnoses / Procedures Referred By Contac t Referred To Contact Diagnoses STEMI (ST elevation myocardial infarction) STEMI Procedures CARDIAC CATHETERIZATION EMERGENCY Delroy Monterroso MD [facility] [place] [address] [facility] Referral ID Status Reason Start Date Expiration Date Visits Re quested Visits Authorized [id number] 1 1 Encounter Details Date Type Department Care Team (Late st Contact Info) Description 06/02/2024 11:09 PM EDT - 06/21/2024 1:07 PM EST Hospital Encounter Heart and Vascular Unit Level 4 [place] [address] Nuha Shen MD [facility] [place] [address] Delroy Fofana MD [facility] [place] [address] Melida Valdes MD [facility] [place] [address] Ethel Carrillo MD [facility] [place] [address] Haja Byrnes MD [facility] DR [place] [address] Bobby Loja MD [facility] [place] [address] ST elevation myocardial infarction (STEMI), unspecified artery; Coronary artery disease involving chemehuevi coronary artery of chemehuevi heart without angina pectoris; S/P CABG x 3 Discharge Disposition: Home with VNA Social History Tobacco Use Types Packs/Day Years Used Date Smoking Tobacco: Every Day Cigarettes Smokeless Tobacco: Never Tobacco Cessation:Ready to Q uit: No; Counseling Given: Yes C Utilities Answer Date Recorded In the past 12 months has [employer], [employer], oil, or water [employer] threatened to shut off services in your [...] any time in the past 12 m [facility], were you homeless or living [...] this encounter Discharge Summaries * Keila Hanley, COMPLIANCE TESTER - 06/21/2024 8:31 AM EST Inpatient - Discharge Summary Patient Name: George Mehta Patient Age: 69 y.o. Birthdate: 1955 Language: Puerto Rican Race: Choose not to Disclose Ethnicity: Not nor Admit Date: 06/02/2024 Discharge Date: 06/21/2024 Attending Physician: Bobby Loja MD Follow-up Recommendations for Providers: Please continue routine management of cardiovascular risk factors including blood pressure, lipids,glucose, etc. Please note any changes to medications. Patient to follow up with PCP, Mauro Berumen MD, in 1-2 weeks. Patient to follow up with Medical Educator, Kristen Cardenas in 2-3 weeks. Patient to follow up with Cardiac Surgeon, Dr. Bobby Loja, in 4 wks. Inpatient Provider Contact Information: [facility] Section of Cardiac Surgery [facility] [address] FAX [phone] Discharge Diagnoses (Hospital Problems) Primary Diagnoses: STEMI [...] 33.75) performed by Bobby Loja MD [facility] OR PRO CABG, ARTERY-VEIN, TWO N/A 06/14/2024 @CABG, TWO VENOUS GRAFTS & ARTERIAL GRAFT (WRVU 7.93) performed by Bobby Loja MD at [facility] OR PRO ENDOSCOPY W/VIDEO-ASST VEIN HARVEST, CABG N/A 06/14/2024 ENDOSCOPIC HARVEST VEIN(S) FOR CABG (WRVU 0.31) performed by Bobby Loja MD at [facility] MAIN OR PRO EXC MEDIASTINAL TUMOR N/A 06/14/2024 @EXCISION OF MEDIASTINAL TUMOR (WRVU 19.55) performed by Bobby Loja MD at [facility] MAIN OR PRO INSERT INTRA-AORTIC BALLOON ASST DEVICE PERCUTANEOUS N/A 06/13/2024 @INSERTION OF IABP,PERCUTANEOUS (WRVU 4.84) performed by Nuha Shen MD at [facility] CATH LABS PRO UNLISTED CARDIAC SURG PROCEDURE N/A 06/14/2024 EXPLORATION AND OVERSEW ATRIAL APPENDAGE (WRVU 5.94) performed by Bobby Loja MD at [facility] [place] Prior To Admission Medications [...] y.o. male with a PMHx of previous NV s/p PCI x3, ICM/HFrEF (LVEF 30%) s/p ICD, DMII, HTN, HLD, remote melanoma, and smoker who presented to [facility] last night via EMS after developing acute, severe chest pain while watching TV. Patient was ruled in for STEMI, given TNK, ASA, plavix, heparin gtt, and sent to [facility] [place] [place] for coronary angiography. LHC demonstrated severely calcified left coronary system with notable LCx 75/80% lesions and DEPUTY ADMINISTRATOR OM1 with ISR with collateral retrograde filling, [...] Hospital Course: George Mehta was admitted to [facility] on 06/02/2024 via the CardiologyService with an anterior STEMI after receiving lytics at OSH. He was brought to the landscape laborer which showed severely calcified left coronary system with notable LCx 75/80% lesions and DEPUTY ADMINISTRATOR OM1 with ISR with collateral retrograde filling, [...] 2 tablespoons of dried fruit. Milk and op-gszfy-adzds yogurt have 15 grams of carbs in a serving. A serving is 1 cup of milk or 3/4 cup (6 oz) of ml-rhkhk-fdycd yogurt. Starchy vegetables have 15 grams of carbs in a serving. A serving is ?? cup of mashed potatoes or sweet potato; 1 cup winter squash; ?? of a small baked potato; ?? cup of cooked beans; or ?? cup cooked corn or green peas. Learn how much carbs to eat each day and at each meal. A dietitian or licensed certified orthotist can teach you how to [...] Bobby Loja and/or the Cardiac Surgery Physician Childbirth And Infant Care Teacher Team may be reached at . Weight: [...] Dr. Bobby Loja. You may use a [place] Track or treadmill but avoid any pulling [...] should resume a low fat, low cholesterol, [place] Heart [employer] Diet/Diabetic diet. Driving: No driving [...] while being managed by your PCP and/or Medical Educator. For future medication refills, please refer to your PCP and/or Medical Educator after your discharge from our service. Thank you REMOVE CHEST TUBE SUTURES ON OR AFTER 06/24/2024 Home oxygen therapy: N/A Follow up appointments: You should follow up with your PCP, Mauro Berumen MD, in 1-2 weeks. You should follow up with your Medical Educator, Dr CARDENAS. You have an appointment with your Cardiac Surgeon, Dr. Bobby Loja, in 4 wks. Cardiac Rehabilitation: George Mehta was seen today regarding participation in the outpatient Phase 2 Cardiac Rehabilitation at [facility]. The patient agrees to a referral to this program. The referral will be sent at discharge and the patient should be contacted by the program within 1-2 weeks from discharge. Future Appointments and Orders Future Orders Complete By Expires Referral to Cardiac Rehab [CXK765 Custom] As directed Process Instructions: If no progress note charted, please enter Clinical details in comments. Scheduling Instructions: Questions: My question or request is: s/p CABG- cardiac rehab at [facility] Referral to Home Health [REF34 Custom] As directed Process Instructions: If no progress note charted, please enter Clinical details in comments. Scheduling Instructions: Comments: Please evaluate George Mehta for admission to Home Health. [address] [facility] [address] (home) Date of : 1955 Inpatient DOCUMENTATION FOR VNA SERVICES (INCLUDING THOSE PATIENTS WITH MEDICARE COVERAGE REQUIRINGHOME VNA SERVICES AND/OR HOSPICE SERVICES) PATIENT'S LOCATION: George Mehta [address] [facility] [address] (home) Telephone Information: On Air Announcer's Name: self In discussion with the attending physician, it is certified that this patient is under their care and that they, or a Nurse Practitioner, or Physician Childbirth And Infant Care Teacher who is working directly with them, hada [...] for services as follows: HOME HEALTH AGENCY: [facility] [address] [address] RN orders: Cardiopulmonary assessment, incisional assessment, assess [...] issues please call the Cardiology Office at [phone] FOR MEDICARE ONLY: (please delete this section [...] above. Signed: KEILA HANLEY APRN [facility] Section of Cardiac Surgery [facility] [address] FAX [phone] Date: 06/21/2024 CC: MD Antonino Tinajero Joshua R, PA [address] [place] [address] [place] [id number] documented in this encounter Discharge Instructions * [...] 2 tablespoons of dried fruit. Milk and hg-tbhzx-sqnmw yogurt have 15 grams of carbs in a serving. A serving is 1 cup of milk or 3/4 cup (6 oz) of gy-odbyz-eenqb yogurt. Starchy vegetables have 15 grams of carbs in a serving. A serving is ?? cup of mashed potatoes or sweet potato; 1 cup winter squash; ?? of a small baked potato; ?? cup of cooked beans; or ?? cup cooked corn or green peas. Learn how much carbs to eat each day and at each meal. A dietitian or licensed certified orthotist can teach you how to [...] Bobby Loja and/or the Cardiac Surgery Physician Childbirth And Infant Care Teacher Team may be reached at . Weight: [...] Dr. Bobby Loja. You may use a [place] Track or treadmill but avoid any pulling [...] should resume a low fat, low cholesterol, [place] Heart [employer] Diet/Diabetic diet. Driving: No driving [...] while being managed by your PCP and/or Medical Educator. For future medication refills, please refer to your PCP and/or Medical Educator after your discharge from our service. Thank you REMOVE CHEST TUBE SUTURES ON OR AFTER 06/24/2024 Home oxygen therapy: N/A Follow up appointments: You should follow up with your PCP, Mauro Berumen MD, in 1-2 weeks. You should follow up with your Medical Educator, Dr CARDENAS. You have an appointment with your Cardiac Surgeon, Dr. Bobby Loja, in 4 wks. Cardiac Rehabilitation: George Mehta was seen today regarding participation in the outpatient Phase 2 Cardiac Rehabilitation at [facility]. The patient agrees to a referral to [...] of your patient's venous access was performed [facility] theVascular Access Service. The following tasks [...] of your patient's venous access was performed [facility] theVascular Access Service. The following tasks [...] MARIALUISA clipping. PMH of chronic HFrEF s/p BEHAVIORAL HEALTH CARE COORDINATOR/ICD, IDDM2, HTN, HLD, remote melanoma, active smoker. [...] 2 tablespoons of dried fruit. Milk and wy-ljbxj-zqgyd yogurt have 15 grams of carbs in a serving. A serving is 1 cup of milk or 3/4 cup (6 oz) of ya-ajbra-idyfm yogurt. Starchy vegetables have 15 grams of carbs in a serving. A serving is ?? cup of mashed potatoes or sweet potato; 1 cup winter squash; ?? of a small baked potato; ?? cup of cooked beans; or ?? cup cooked corn or green peas. Learn how much carbs to eat each day and at each meal. A dietitian or licensed certified orthotist can teach you how to [...] – [place] Endocrinology Diabetes Management Pager [phone] Weekends please page [phone] * Eric Packer PA - 06/20/2024 7:44 AM EST Cardiac Surgery Progress Note George Mehta is a 69 y.o. male with a history of CAD s/p multiple PCI who presented with an anterior STEMI and was given lytics. Cath showed MV CAD without culprit vessel. He is now 6 Days Post-OpCABGx3 and MARIALUISA clipping. PMH of chronic HFrEF s/p BEHAVIORAL HEALTH CARE COORDINATOR/ICD, IDDM2, HTN, HLD, remote melanoma, active smoker. 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 06/20/2024 Between the hours of 1800 - 0600 and on the weekends please page [phone]. * Alejandra Baumann, COMPLIANCE TESTER - 06/20/2024 7:21 AM EST Follow Up Diabetes Consult Patient Interview Blood glucose values and insulin use reviewed. filterer BG to 59 despite decrease in glargine [...] MARIALUISA clipping. PMH of chronic HFrEF s/p BEHAVIORAL HEALTH CARE COORDINATOR/ICD, IDDM2, HTN, HLD, remote melanoma, active smoker. filterer BG to 59 despite decrease in glargine [...] – [place] Endocrinology Diabetes Management Pager [phone] Weekends please page [phone] Insulin Discharge Instructions Preliminary Diabetes Discharge Instructions [...] 2 tablespoons of dried fruit. Milk and os-phitm-pgjyd yogurt have 15 grams of carbs in a serving. A serving is 1 cup of milk or 3/4 cup (6 oz) of zn-sjfam-qzapw yogurt. Starchy vegetables have 15 grams of carbs in a serving. A serving is ?? cup of mashed potatoes or sweet potato; 1 cup winter squash; ?? of a small baked potato; ?? cup of cooked beans; or ?? cup cooked corn or green peas. Learn how much carbs to eat each day and at each meal. A dietitian or licensed certified orthotist can teach you how to [...] MARIALUISA clipping. PMH of chronic HFrEF s/p BEHAVIORAL HEALTH CARE COORDINATOR/ICD, IDDM2, HTN, HLD, remote melanoma, active smoker. 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 Jeffy Hood MD 06/19/2024 Between the hours of 1800 - 0600 and on the weekends please page [phone]. * Alejandra Baumann, JOSÉ ANTONIO - 06/19/2024 7:09 AM EST Follow Up Diabetes Consult Patient Interview Blood glucose values and insulin use reviewed. Jardiance added back yesterday, meters superintendent low BGto 51. Glargine reduced to 45 [...] MARIALUISA clipping. PMH of chronic HFrEF s/p BEHAVIORAL HEALTH CARE COORDINATOR/ICD, IDDM2, HTN, HLD, remote melanoma, active smoker. Jardiance added back yesterday. filterer low BG to 51. Glargine reduced to [...] 2 tablespoons of dried fruit. Milk and ml-tgiov-bpmfi yogurt have 15 grams of carbs in a serving. A serving is 1 cup of milk or 3/4 cup (6 oz) of ka-nyxvv-lxpfq yogurt. Starchy vegetables have 15 grams of carbs in a serving. A serving is ?? cup of mashed potatoes or sweet potato; 1 cup winter squash; ?? of a small baked potato; ?? cup of cooked beans; or ?? cup cooked corn or green peas. Learn how much carbs to eat each day and at each meal. A dietitian or licensed certified orthotist can teach you how to [...] – [place] Endocrinology Diabetes Management Pager [phone] Weekends please page [phone] Hilda Almazan PTA - 06/18/2024 9:19 AM EST Physical Therapy Note 2 Patient profile: George Mehta is a 69 y.o. male with a history of CAD s/p multiple PCI who presented with an anterior STEMI and was given lytics. Cath showed MV CAD without culprit vessel. He is now 1 Day Post-Op CABGx3 and MARIALUISA clipping. PMH of chronic HFrEF s/p BEHAVIORAL HEALTH CARE COORDINATOR/ICD, IDDM2, HTN, HLD, remote melanoma, active smoker. Interval History: Per last cardiac surgery note on 06/18/2024 Cr improved 1.4 on lasix 40 iv bid -1.5L, made 2.5L urine Coreg, entresto restarted Floor status Social History: Pt lives with his in a 1 level apartment with no steps to enter. 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 He drives. He sleeps in a recliner at baseline. Precautions/Special Considerations: Sternal precautions, PIV, at risk to fall, PPM Mobility and Positioning Recommendations: Pt to utilize no AD, supervision for ambulation and transfers w/ staff respiratory therapist as able. Please encourage up to [...] least restrictive device Time IN / OUT: 8487-2072 Total Time: 11 minutes; TEF 1 Hilda Resendez PTA Pager: [phone] Physical Therapy Inpatient Rehabilitation Department * Keila [...] MARIALUISA clipping. PMH of chronic HFrEF s/p BEHAVIORAL HEALTH CARE COORDINATOR/ICD, IDDM2, HTN, HLD, remote melanoma, active smoker. 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 Restarting jardiance #Active smoker Duoneb prn Dispo: CV[facility], Full code, tx to floor Discussed with attending surgeon on rounds this morning. KEILA HANLEY APRN 06/18/2024 Between the hours of 1800 - 0600 and on the weekends please page [phone]. * Alejandra Baumann APRN - 06/17/2024 3:29 [...] MARIALUISA clipping. PMH of chronic HFrEF s/p BEHAVIORAL HEALTH CARE COORDINATOR/ICD, IDDM2, HTN, HLD, remote melanoma, active smoker. [...] – [place], [place] Endocrinology Diabetes Management Pager [phone] Weekends please page [phone] 35 minutes were spent over the course [...] MARIALUISA clipping. PMH of chronic HFrEF s/p BEHAVIORAL HEALTH CARE COORDINATOR/ICD, IDDM2, HTN, HLD, remote melanoma, active smoker. [...] 0600 and on the weekends please page [phone]. * Raymond Carlton MD - 06/16/2024 1:11 PM EST CARDIAC CRITICAL CARE ATTENDING STAFF PROGRESS NOTE Patient seen and examined. George Mehta is a 69 y.o. male with: Active Hospital Problems Diagnosis STEMI (ST elevation myocardial infarction) Cardiac resynchronization therapy defibrillator (BEHAVIORAL HEALTH CARE COORDINATOR-D) - Medtronic Amplia Cardiomyopathy, ischemic Acute on chronic heart failure with reduced ejection fraction (HFrEF, <= 40%) Coronary artery disease involving chemehuevi coronary artery of chemehuevi heart without angina pectoris Type 2 diabetes [...] encouragement provided Patient screened for f/u and underwriter mortgage loan met pt at bedside. Pt states his [...] unless consulted in the interim. RICHA Simmons District Engineer * Octaviano Horvath PA - 06/16/2024 8:07 AM EST Cardiac Surgery Progress Note George Mehta is a 69 y.o. male with a history of CAD s/p multiple PCI who presented with an anterior STEMI and was given lytics. Cath showed MV CAD without culprit vessel. He is now 2 Days Post-OpCABGx3 and MARIALUISA clipping. PMH of chronic HFrEF s/p BEHAVIORAL HEALTH CARE COORDINATOR/ICD, IDDM2, HTN, HLD, remote melanoma, active smoker. [...] 0600 and on the weekends please page [phone]. * Jono Fernandez, PT - 06/15/2024 4:09 PM EST Physical Therapy Evaluation Patient profile: George Mehta is a 69 y.o. male with a history of CAD s/p multiple PCI who presented with an anterior STEMI and was given lytics. Cath showed MV CAD without culprit vessel. He is now 1 Day Post-Op CABGx3 and MARIALUISA clipping. PMH of chronic HFrEF s/p BEHAVIORAL HEALTH CARE COORDINATOR/ICD, IDDM2, HTN, HLD, remote melanoma, active smoker. 24h Events: From OR on Dobutamine IABP removed Bedrest ended ~2100, sedation weaned Extubated ~0200 Dobutamine weaned to 1 this morning, CI 2.6, shut off and repeat CI 2.4 Social History: Pt lives with his in a 1 level apartment with no steps to enter. 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 He drives. He sleeps [...] outlined inthis evaluation. JONO FERNANDEZ, PT Pager: [phone] Physical Therapy Inpatient Rehabilitation Department Time IN / OUT: 1391-9512 Total Time: 33 (eval) minutes * Alejandra Baumann APRN - 06/15/2024 11:39 AM EST Follow Up Diabetes Consult Patient Interview Blood glucose values and insulin use reviewed. Pt remains on an insulin drip today following [id number] MARIALUISA clipping. George continues to complain of [...] MARIALUISA clipping. PMH of chronic HFrEF s/p BEHAVIORAL HEALTH CARE COORDINATOR/ICD, IDDM2, HTN, HLD, remote melanoma, active smoker. [...] – [place], [place] Endocrinology Diabetes Management Pager [phone] Weekends please page [phone] 50 minutes were spent over the course [...] elevation myocardial infarction) Cardiac resynchronization therapy defibrillator (BEHAVIORAL HEALTH CARE COORDINATOR-D) - Medtronic Amplia Cardiomyopathy, ischemic Acute on chronic heart failure with reduced ejection fraction (HFrEF, <= 40%) Coronary artery disease involving chemehuevi coronary artery of chemehuevi heart without angina pectoris Type 2 diabetes [...] with h/o DM, CAD with prior PCI, BEHAVIORAL HEALTH CARE COORDINATOR-D who presented with crushing chest pain, found [...] MARIALUISA clipping. PMH of chronic HFrEF s/p BEHAVIORAL HEALTH CARE COORDINATOR/ICD, IDDM2, HTN, HLD, remote melanoma, active smoker. [...] sternotomy dressing CDI, saphenectomy dressing CDi Tubes/Lines/Drains: Shedd, RIJ, A-line, Mediastinal marcos and bilateral pleural [...] 0600 and on the weekends please page [phone]. * Yoli Donaldson, HOT STICK WORKER - 06/15/2024 5:35 AM EST AMV Protocol: [...] with h/o DM, CAD with prior PCI, BEHAVIORAL HEALTH CARE COORDINATOR-D who presented with crushing chest pain, found [...] with h/o DM, CAD with prior PCI, BEHAVIORAL HEALTH CARE COORDINATOR-D who presented with crushing chest pain, found [...] 0600 and on the weekends please page [phone]. * Chloé Cortez - 06/14/2024 9:36 AM [...] unless consulted in the interim. Chloé Cortez Well Drill Operator Cable Tool * Jim Benites MD - 06/13/2024 1:15 [...] - Mildly dilated left ventricle size with fecshuwc-qb-ptulvxhm decreased LV systolic function. LV ejection fraction [...] ACS/crushing chest pain, likely due to lateral NV, found to have surgical CAD with viability [...] (abstinent since admission), ASCVD with multiple prior NV and PCIs, ICM/HFrEF LVEF 30% (all territories [...] elevation myocardial infarction) Cardiac resynchronization therapy defibrillator (BEHAVIORAL HEALTH CARE COORDINATOR-D) - Medtronic Amplia Cardiomyopathy, ischemic Acute on chronic heart failure with reduced ejection fraction (HFrEF, <= 40%) Coronary artery disease involving chemehuevi coronary artery of chemehuevi heart without angina pectoris Type 2 diabetes [...] PCP: Mauro Berumen MD PCP phone number: [phone] Date of Admission: 06/02/2024 ( Hospital Day 10 days ) Attending:Ethel Carrillo MD ID: 69 y.o. male with a h/o DM type 2, HTN, HLD, current smoker (2-3 cigarettes/day), HFrEF with anICD for low EF (~30%), and CAD with prior NV x3 with JENNA placed in [facility], presented to [facility] with 1 hour of retrosternal CP (05/13) while watching TV, found to have STEMI. Active Problems: Active Hospital Problems Diagnosis STEMI (ST elevation myocardial infarction) Cardiac resynchronization therapy defibrillator (BEHAVIORAL HEALTH CARE COORDINATOR-D) - Medtronic Amplia Cardiomyopathy, ischemic Acute on chronic heart failure with reduced ejection fraction (HFrEF, <= 40%) Coronary artery disease involving chemehuevi coronary artery of chemehuevi heart without angina pectoris Type 2 diabetes [...] in the last 7068 hours. Invalid input(s): [id number] Recent Labs 06/12/24 0425 06/11/24 2356 06/11/24 2025 06/11/24 1624 06/11/24 1108 06/11/24 0748 06/11/24 0357 06/11/24 0050 06/10/24 1922 06/10/24 1735 06/10/24 1125 06/10/24 0746 POCGLU 132 135 210* 81 233* 184 132 144 236* 123 216* 206* Heme No results for input(s): LDH, HAPTOGLOBIN, URICACID in the last 168 hours. ABG (Arterial Blood Gas) No results found for: PHART, PO2ART, CXK6JAE, GII6TDM Microbiology: Microbiology Results (Last 30 days) No results found for the last 720 hours. Imaging: Results for orders placed or performed during the hospital encounter of 06/02/24 XR Chest One View (Exam End: 06/03/2024 2:41 AM) Result Value WORKSTATION ID [id number] Impression No radiographically evident acute cardiopulmonary process. Thank you for letting us participate in the care of this patient. If you are a health care provider and have any questions regarding this report, please contact the number below. For patients who have questions please contact the health manager medicare marketing that requested your imaging first. Electronically signed by: Corazon Mauro MD, [facility] ([phone]), at 06/03/2024 3:06 AM MRI Cardiac Morphology Function wwo Contrast (Exam End: 06/07/2024 1:10 PM) Result Value WORKSTATION ID [id number] Impression - Findings consistent with an ischemic [...] - Mildly dilated left ventricle size with samtxmqf-kg-eouzkxuf decreased LV systolic function. LV ejection fraction [...] who have questions please contact the health manager medicare marketing that requested your imaging first. Electronically signed by: Kriss Alonzo MD, [facility] ([phone]), at 06/07/2024 2:[address] Chest wo Contrast (Generic) (Exam End: 06/03/2024 4:33 PM) Result Value WORKSTATION ID [id number] Impression Cardiomegaly. Biventricular ICD leads in place. Thank you for letting us participate in the care of this patient. If you are a health care provider and have any questions regarding this report, please contact the number below. For patients who have questions please contact the health manager medicare marketing that requested your imaging first. Electronically signed by: Stuart Aponte MD, [facility] ([phone]), at 06/03/2024 4:47 PM XR Chest PA & Lateral (Generic) (Exam End: 06/07/2024 7:03 AM) Result Value WORKSTATION ID [id number] Impression Biventricular ICD leads intact and in [...] who have questions please contact the health manager medicare marketing that requested your imaging first. Electronically signed by: Stuart Aponte MD, [facility] ([phone]), at 06/07/2024 10:45 AM TTE: Limited echo performed by fellow iron bender to assess LV function. Left ventricle is [...] ischemic cardiomyopathy with HFrEF (~30% EF), prior NV with stents, DM type 2, HTN, HLD, active smoker, presented with anterior STEMI. Angiography revealed severe multivessel CAD with extensive calcification and YUE 3 flow in all vessels, without a clear culprit lesion. Currently pain-free after TNK, Plavix, ASA, and heparin, with mildly elevated LVEDP at 40 mmHg and mild volume overload. 06/12/24: Patient stable, asymptomatic. Plan to go to landscape laborer for balloon pump tomorrow, then willgo [...] CODE Dain Colón MD Cardiology, M1-S2, Pager #[phone] 06/12/24 Associated attestation - Ethel Carrillo MD [...] (abstinent since admission), ASCVD with multiple prior NV and PCIs, ICM/HFrEF LVEF 30% (all territories [...] of two midnights or is on the [facility] inpatient only procedure list (status C) due to: acute myocardial infarction requiring titration of IV medication and fluid monitoring and decompensated congestive heart failure requiring IV medication and fluid monitoring Ethel Carrillo MD Cardiovascular Medicine Personal Pager [phone] 06/12/2024 9:12 PM * Alejandra Baumann, COMPLIANCE TESTER - 06/11/2024 4:21 PM EST Images from [...] too aggressive, suggest ICR 1:6 (rule of [id number]/81 = 6.25). George is up and walking [...] ischemic cardiomyopathy with HFrEF (~30% EF), prior NV with stents, DM type 2, HTN, HLD, [...] – [place], [place] Endocrinology Diabetes Management Pager [phone] Weekends please page [phone] 35 minutes were spent over the course [...] PCP: Mauro Berumen MD PCP phone number: [phone] Date of Admission: 06/02/2024 ( Hospital Day 9 days ) Attending:Melida Valdes MD ID: 69 y.o. male with a h/o DM type 2, HTN, HLD, current smoker (2-3 cigarettes/day), HFrEF with anICD for low EF (~30%), and CAD with prior NV x3 with JENNA placed in [place], Melanoma, PAD, presented to [facility] with 1 hour of retrosternal CP (05/13) while watching TV, found to have STEMI. Active Problems: Active Hospital Problems Diagnosis STEMI (ST elevation myocardial infarction) Cardiac resynchronization therapy defibrillator (BEHAVIORAL HEALTH CARE COORDINATOR-D) - Medtronic Amplia Cardiomyopathy, ischemic Acute on chronic heart failure with reduced ejection fraction (HFrEF, <= 40%) Coronary artery disease involving chemehuevi coronary artery of chemehuevi heart without angina pectoris Type 2 diabetes [...] in the last 7068 hours. Invalid input(s): [id number] Recent Labs 06/11/24 0357 06/11/24 0050 06/10/24 1922 06/10/24 1735 06/10/24 1125 06/10/24 0746 06/10/24 0423 06/10/24 0005 06/09/24 2036 06/09/24 1727 06/09/24 1152 06/09/24 0810 POCGLU 132 144 236* 123 216* 206* 154 125 197 174 211* 209* Heme No results for input(s): LDH, HAPTOGLOBIN, URICACID in the last 168 hours. ABG (Arterial Blood Gas) No results found for: PHART, PO2ART, EWH7RKG, RRO6TXL Microbiology: Microbiology Results (Last 30 days) No results found for the last 720 hours. Imaging: Results for orders placed or performed during the hospital encounter of 06/02/24 XR Chest One View (Exam End: 06/03/2024 2:41 AM) Result Value WORKSTATION ID [id number] Impression No radiographically evident acute cardiopulmonary process. Thank you for letting us participate in the care of this patient. If you are a health care provider and have any questions regarding this report, please contact the number below. For patients who have questions please contact the health manager medicare marketing that requested your imaging first. Electronically signed by: Corazon Mauro MD, [facility] ([phone]), at 06/03/2024 3:06 AM MRI Cardiac Morphology Function wwo Contrast (Exam End: 06/07/2024 1:10 PM) Result Value WORKSTATION ID [id number] Impression - Findings consistent with an ischemic [...] - Mildly dilated left ventricle size with lmvsjrjj-zp-sbtpvobd decreased LV systolic function. LV ejection fraction [...] who have questions please contact the health manager medicare marketing that requested your imaging first. Electronically signed by: Kriss Alonzo MD, [facility] ([phone]), at 06/07/2024 2:[address] Chest wo Contrast (Generic) (Exam End: 06/03/2024 4:33 PM) Result Value WORKSTATION ID [id number] Impression Cardiomegaly. Biventricular ICD leads in place. Thank you for letting us participate in the care of this patient. If you are a health care provider and have any questions regarding this report, please contact the number below. For patients who have questions please contact the health manager medicare marketing that requested your imaging first. Electronically signed by: Stuart Aponte MD, [facility] ([phone]), at 06/03/2024 4:47 PM XR Chest PA & Lateral (Generic) (Exam End: 06/07/2024 7:03 AM) Result Value WORKSTATION ID [id number] Impression Biventricular ICD leads intact and in [...] who have questions please contact the health manager medicare marketing that requested your imaging first. Electronically signed by: Stuart Aponte MD, [facility] ([phone]), at 06/07/2024 10:45 AM TTE: Limited echo performed by fellow iron bender to assess LV function. Left ventricle is [...] Infusions: heparin (porcine) infusion 1,400 Units/hr (06/10/24 9664) PRN Meds:.insulin lispro, glucose 40% oral geL [...] ischemic cardiomyopathy with HFrEF (~30% EF), prior NV with stents, DM type 2, HTN, HLD, [...] CODE Dain Colón MD Cardiology, M1-S2, Pager #[phone] 06/11/24 Associated attestation - Ethel Carrillo MD [...] (abstinent since admission), ASCVD with multiple prior NV and PCIs, ICM/HFrEF LVEF 30% (all territories [...] Ethel Carrillo MD Cardiovascular Medicine Personal Pager [phone] 06/11/2024 9:35 PM * Hilary Belle - 06/10/2024 12:39 PM EST Nutrition Services Note George Mehta is a 69 y.o. male Reason for intervention: hospital day 9 Nutrition Plan: Continue diet order: 60/60/75 CHO Level 2 Encourage good PO Lasix and Insulin noted Monitor weight Patient scheduled for a hospital day 9 nutrition evaluation. Convention Worker attempted to meet with pt at [...] unless consulted in the interim. Hilary Belle District Engineer * Mariia Montero RN - 06/10/2024 12:23 PM EST I have met with the patient to: discuss discharge planning needs. provide the [facility] [place], Office of Care Management letter from the [employer] pertaining to rehab referrals. provide a letter describing our affiliations within the [facility] and educate about their right to choose where referrals are sent. provide a list of Home Health Agencies / Durable Medical Equipment vendors which serve their preferred geographic area. provided patient with CMS Star Quality Rating handout. They have [facility]: [facility] [employer]. [address] [place] [id number] RN / PT Anticipated d/c date: 06/20/24 Note routed to a Pulping Machine Operator who will communicate referrals to facilities and provide any required information. * Dain Colón MD - 06/10/2024 7:17 AM EST Images from the original note were not included. . Cardiology Progress Note Patient info: Name: George Mehta : 1955 PCP: Mauro Berumen MD PCP phone number: [phone] Date of Admission: 06/02/2024 ( Hospital Day 8 days ) Attending:Melida Valdes MD ID: 69 y.o. male with a h/o DM type 2, HTN, HLD, current smoker (2-3 cigarettes/day), HFrEF with anICD for low EF (~30%), and CAD with prior NV x3 with JENNA placed in [place], [facility], PAD, presented to [facility] with 1 hour of retrosternal CP (05/13) while watching TV, found to have STEMI. Active Problems: Active Hospital Problems Diagnosis STEMI (ST elevation myocardial infarction) Cardiac resynchronization therapy defibrillator (BEHAVIORAL HEALTH CARE COORDINATOR-D) - Medtronic Amplia Cardiomyopathy, ischemic Acute on chronic heart failure with reduced ejection fraction (HFrEF, <= 40%) Coronary artery disease involving chemehuevi coronary artery of chemehuevi heart without angina pectoris Type 2 diabetes [...] in the last 7068 hours. Invalid input(s): [id number] Recent Labs 06/10/24 0423 06/10/24 0005 06/09/24 2036 06/09/24 1727 06/09/24 1152 06/09/24 0810 06/09/24 0440 06/09/24 0034 06/08/24 2027 06/08/24 1616 06/08/24 1235 06/08/24 0810 POCGLU 154 125 197 174 211* 209* 131 186 176 159 226* 190 Heme No results for input(s): LDH, HAPTOGLOBIN, URICACID in the last 168 hours. ABG (Arterial Blood Gas) No results found for: PHART, PO2ART, YOR3PZD, INL1IUI Microbiology: Microbiology Results (Last 30 days) No results found for the last 720 hours. Imaging: Results for orders placed or performed during the hospital encounter of 06/02/24 XR Chest One View (Exam End: 06/03/2024 2:41 AM) Result Value WORKSTATION ID [id number] Impression No radiographically evident acute cardiopulmonary process. Thank you for letting us participate in the care of this patient. If you are a health care provider and have any questions regarding this report, please contact the number below. For patients who have questions please contact the health manager medicare marketing that requested your imaging first. Electronically signed by: Corazon Mauro MD, [facility] ([phone]), at 06/03/2024 3:06 AM MRI Cardiac Morphology Function wwo Contrast (Exam End: 06/07/2024 1:10 PM) Result Value WORKSTATION ID [id number] Impression - Findings consistent with an ischemic [...] - Mildly dilated left ventricle size with zfugdqtm-ml-zyckupxv decreased LV systolic function. LV ejection fraction [...] who have questions please contact the health manager medicare marketing that requested your imaging first. Electronically signed by: Kriss Alonzo MD, [facility] ([phone]), at 06/07/2024 2:[address] Chest wo Contrast (Generic) (Exam End: 06/03/2024 4:33 PM) Result Value WORKSTATION ID [id number] Impression Cardiomegaly. Biventricular ICD leads in place. Thank you for letting us participate in the care of this patient. If you are a health care provider and have any questions regarding this report, please contact the number below. For patients who have questions please contact the health manager medicare marketing that requested your imaging first. Electronically signed by: Stuart Aponte MD, [facility] ([phone]), at 06/03/2024 4:47 PM XR Chest PA & Lateral (Generic) (Exam End: 06/07/2024 7:03 AM) Result Value WORKSTATION ID [id number] Impression Biventricular ICD leads intact and in [...] who have questions please contact the health manager medicare marketing that requested your imaging first. Electronically signed by: Stuart Aponte MD, [facility] ([phone]), at 06/07/2024 10:45 AM TTE: Limited echo performed by fellow iron bender to assess LV function. Left ventricle is [...] ischemic cardiomyopathy with HFrEF (~30% EF), prior NV with stents, DM type 2, HTN, HLD, [...] CODE Dain Colón MD Cardiology, M1-S2, Pager #[phone] 06/10/24 Associated attestation - Melida Valdes MD [...] a lytic and brought directly to the Compliance Representative Dealer. Cardiac catheterization demonstrated multivessel disease with severe [...] who is agreeable Melida Valdes MD Staff Medical Educator * Cherelle Fregoso APRN - 06/09/2024 8:59 [...] ischemic cardiomyopathy with HFrEF (~30% EF), prior NV with stents, DM type 2, HTN, HLD, [...] PCP: Mauro Berumen MD PCP phone number: [phone] Date of Admission: 06/02/2024 ( Hospital Day 7 days ) Attending:Melida Valdes MD ID: 69 y.o. male with a h/o DM type 2, HTN, HLD, current smoker (2-3 cigarettes/day), HFrEF with anICD for low EF (~30%), and CAD with prior NV x3 with JENNA placed in [place], Melanoma, PAD, presented to [facility] with 1 hour of retrosternal CP (05/13) while watching TV, found to have STEMI. Active Problems: Active Hospital Problems Diagnosis STEMI (ST elevation myocardial infarction) Acute on chronic heart failure with reduced ejection fraction (HFrEF, <= 40%) Coronary artery disease involving chemehuevi coronary artery of chemehuevi heart without angina pectoris Type 2 diabetes [...] in the last 7068 hours. Invalid input(s): [id number] Recent Labs 06/09/24 0440 06/09/24 0034 06/08/24 2027 06/08/24 1616 06/08/24 1235 06/08/24 0810 06/08/24 0409 06/07/24 2357 06/07/24 2005 06/07/24 1631 06/07/24 1105 06/07/24 1103 POCGLU 131 186 176 159 226* 190 151 188 118 174 221* 250* Heme No results for input(s): LDH, HAPTOGLOBIN, URICACID in the last 168 hours. ABG (Arterial Blood Gas) No results found for: PHART, PO2ART, ESP0OAY, VIE1CSZ Microbiology: Microbiology Results (Last 30 days) No results found for the last 720 hours. Imaging: Results for orders placed or performed during the hospital encounter of 06/02/24 XR Chest One View (Exam End: 06/03/2024 2:41 AM) Result Value WORKSTATION ID [id number] Impression No radiographically evident acute cardiopulmonary process. Thank you for letting us participate in the care of this patient. If you are a health care provider and have any questions regarding this report, please contact the number below. For patients who have questions please contact the health manager medicare marketing that requested your imaging first. Electronically signed by: Corazon Mauro MD, [facility] ([phone]), at 06/03/2024 3:06 AM MRI Cardiac Morphology Function wwo Contrast (Exam End: 06/07/2024 1:10 PM) Result Value WORKSTATION ID [id number] Impression - Findings consistent with an ischemic [...] - Mildly dilated left ventricle size with lupjmnhi-ts-pcvxjrhr decreased LV systolic function. LV ejection fraction [...] who have questions please contact the health manager medicare marketing that requested your imaging first. Electronically signed by: Kriss Alonzo MD, [facility] ([phone]), at 06/07/2024 2:[address] Chest wo Contrast (Generic) (Exam End: 06/03/2024 4:33 PM) Result Value WORKSTATION ID [id number] Impression Cardiomegaly. Biventricular ICD leads in place. Thank you for letting us participate in the care of this patient. If you are a health care provider and have any questions regarding this report, please contact the number below. For patients who have questions please contact the health manager medicare marketing that requested your imaging first. Electronically signed by: Stuart Aponte MD, [facility] ([phone]), at 06/03/2024 4:47 PM XR Chest PA & Lateral (Generic) (Exam End: 06/07/2024 7:03 AM) Result Value WORKSTATION ID [id number] Impression Biventricular ICD leads intact and in [...] who have questions please contact the health manager medicare marketing that requested your imaging first. Electronically signed by: Stuart Aponte MD, [facility] ([phone]), at 06/07/2024 10:45 AM TTE: Limited echo performed by fellow iron bender to assess LV function. Left ventricle is [...] Infusions: heparin (porcine) infusion 1,400 Units/hr (06/08/24 8288) PRN Meds:.glucose 40% oral geL OR dextrose [...] ischemic cardiomyopathy with HFrEF (~30% EF), prior NV with stents, DM type 2, HTN, HLD, [...] CODE Dain Colón MD Cardiology, M1-S2, Pager #[phone] 06/09/24 Associated attestation - Melida Valdes MD [...] a lytic and brought directly to the Compliance Representative Dealer. Cardiac catheterization demonstrated multivessel disease with severe [...] insertion low EF. Melida Valdes MD Staff Medical Educator * Alejandra Baumann, JOSÉ ANTONIO - 06/08/2024 [...] ischemic cardiomyopathy with HFrEF (~30% EF), prior NV with stents, DM type 2, HTN, HLD, [...] – [place], [place] Endocrinology Diabetes Management Pager [phone] Weekends please page [phone] 35 minutes were spent over the course [...] PCP: Mauro Berumen MD PCP phone number: [phone] Date of Admission: 06/02/2024 ( Hospital Day 6 days ) Attending:Melida Valdes MD ID: 69 y.o. male with a h/o DM type 2, HTN, HLD, current smoker (2-3 cigarettes/day), HFrEF with anICD for low EF (~30%), and CAD with prior NV x3 with JENNA placed in [place], Melanoma, PAD, presented to [facility] with 1 hour of retrosternal CP (05/13) while watching TV, found to have STEMI. Active Problems: Active Hospital Problems Diagnosis STEMI (ST elevation myocardial infarction) Acute on chronic heart failure with reduced ejection fraction (HFrEF, <= 40%) Coronary artery disease involving chemehuevi coronary artery of chemehuevi heart without angina pectoris Type 2 diabetes [...] in the last 7068 hours. Invalid input(s): [id number] Recent Labs 06/08/24 0409 06/07/24 2357 06/07/24200406/07/24 1631 06/07/24 1105 06/07/24 1103 06/07/24 0745 06/07/24 0425 06/07/24 0008 06/06/24201706/06/24 1539 06/06/24 1339 POCGLU 151 188 118 174 221* 250* 175 127 182 143 147 317* Heme No results for input(s): LDH, HAPTOGLOBIN, URICACID in the last 168 hours. ABG (Arterial Blood Gas) No results found for: PHART, PO2ART, AKZ9YTY, ZQQ3DNQ Microbiology: Microbiology Results (Last 30 days) No results found for the last 720 hours. Imaging: Results for orders placed or performed during the hospital encounter of 06/02/24 XR Chest One View (Exam End: 06/03/2024 2:41 AM) Result Value WORKSTATION ID [id number] Impression No radiographically evident acute cardiopulmonary process. Thank you for letting us participate in the care of this patient. If you are a health care provider and have any questions regarding this report, please contact the number below. For patients who have questions please contact the health manager medicare marketing that requested your imaging first. Electronically signed by: Corazon Mauro MD, [facility] ([phone]), at 06/03/2024 3:06 AM MRI Cardiac Morphology Function wwo Contrast (Exam End: 06/07/2024 1:10 PM) Result Value WORKSTATION ID [id number] Impression - Findings consistent with an ischemic [...] - Mildly dilated left ventricle size with fnkiqwpn-jz-rxvcifju decreased LV systolic function. LV ejection fraction [...] who have questions please contact the health manager medicare marketing that requested your imaging first. Electronically signed by: Kriss Alonzo MD, [facility] ([phone]), at 06/07/2024 2:[address] Chest wo Contrast (Generic) (Exam End: 06/03/2024 4:33 PM) Result Value WORKSTATION ID [id number] Impression Cardiomegaly. Biventricular ICD leads in place. Thank you for letting us participate in the care of this patient. If you are a health care provider and have any questions regarding this report, please contact the number below. For patients who have questions please contact the health manager medicare marketing that requested your imaging first. Electronically signed by: Stuart Aponte MD, [facility] ([phone]), at 06/03/2024 4:47 PM XR Chest PA & Lateral (Generic) (Exam End: 06/07/2024 7:03 AM) Result Value WORKSTATION ID [id number] Impression Biventricular ICD leads intact and in [...] who have questions please contact the health manager medicare marketing that requested your imaging first. Electronically signed by: Stuart Aponte MD, [facility] ([phone]), at 06/07/2024 10:45 AM TTE: Limited echo performed by fellow iron bender to assess LV function. Left ventricle is [...] Infusions: heparin (porcine) infusion 1,400 Units/hr (06/08/24 0415) PRN Meds:.insulin lispro, potassium chloride ER OR [...] ischemic cardiomyopathy with HFrEF (~30% EF), prior NV with stents, DM type 2, HTN, HLD, [...] CODE Dain Colón MD Cardiology, M1-S2, Pager #[phone] 06/08/24 Associated attestation - Melida Valdes MD [...] a lytic and brought directly to the Compliance Representative Dealer. Cardiac catheterization demonstrated multivessel disease with severe [...] Pending CT eval. Otherwise clinically stable Melida Valeds MD Staff Medical Educator * Ross Manuel PA - 06/07/2024 12:00 PM EST Cardiac Electrophysiology CIED Interrogation/Programming Note Asked by MRI staff to evaluate and program Medtronic BEHAVIORAL HEALTH CARE COORDINATOR-D to allow for MR imaging. Patient Active Problem List Diagnosis ','STEMI (ST elevation myocardial infarction) Acute on chronic heart failure with reduced ejection fraction (HFrEF, <= 40%) Coronary artery disease involving chemehuevi coronary artery of chemehuevi heart without angina pectoris Type 2 diabetes mellitus Device Data: Medtronic Amplia MRI Quad BEHAVIORAL HEALTH CARE COORDINATOR-D [id number] #[id number] 06/16/2019 RA Medtronic 4076 CapSureFix Novus [id number] 06/16/2019 RV Medtronic [id number] [id number] 06/16/2019 LV Medtronic 4298 Attain Performa MRI [id number] 06/16/2019 DDD @ 50/130/130 Adaptive Bi-V and LV VF >188bpm ATP, 35j x6 FVT >188-222bpm burst 2, 35jx5 VT Battery longevity: 2.5yrs; charge time 4s P wave: 2.3mV R wave: >20.0mV Atrial impedance: 458 ohms RV impedance: 646 ohms LV impedance: 722 ohms Atrial threshold: 0.5V @ 0.4ms RV threshold: LV threshold: 1.75V @ 0.4ms AP 0.2% MAT REPAIRER 97.7% AT/AF 0% Impression and Plan: 1. Interrogated device to determine suitability for MRI 2. Programmed to MRI safe mode - VOO @ 70 3. Scan performed 4. Programming restored to baseline settings 5. Reinterrogated to verify appropriate function and settings 6. Device follow up as previously scheduled Provider: HENOK Meyer EP Consult attending physician: Libby Barton MD EP Consult positional pager #[phone](EPMD) EP Device interrogation positional pager # [phone] * Dain Colón MD - 06/07/2024 7:09 AM EST Images from the original note were not included. . Cardiology Progress Note Patient info: Name: George Mehta : 1955 PCP: Mauro Berumen MD PCP phone number: [phone] Date of Admission: 06/02/2024 ( Hospital Day 5 days ) Attending:Melida Valdes MD ID: 69 y.o. male with a h/o DM type 2, HTN, HLD, current smoker (2-3 cigarettes/day), HFrEF with anICD for low EF (~30%), and CAD with prior NV x3 with JENNA placed in [place], Melanoma, PAD, presented to [facility] with 1 hour of retrosternal CP (05/13) while watching TV, found to have STEMI. Active Problems: Active Hospital Problems Diagnosis STEMI (ST elevation myocardial infarction) Acute on chronic heart failure with reduced ejection fraction (HFrEF, <= 40%) Coronary artery disease involving chemehuevi coronary artery of chemehuevi heart without angina pectoris Type 2 diabetes [...] in the last 7068 hours. Invalid input(s): [id number] Recent Labs 06/07/24 0425 06/07/24 0008 06/06/24 2018 06/06/24 1539 06/06/24 1339 06/06/24 1134 06/06/24 0757 06/06/24 0653 06/05/24 2231 06/05/24 1622 06/05/24 1134 06/05/24 0727 POCGLU 127 182 143 147 317* 264* 195 187 238* 205* 211* 166 Heme No results for input(s): LDH, HAPTOGLOBIN, URICACID in the last 168 hours. ABG (Arterial Blood Gas) No results found for: PHART, PO2ART, XFB2AKN, YWK1XFJ Microbiology: Microbiology Results (Last 30 days) No results found for the last 720 hours. Imaging: Results for orders placed or performed during the hospital encounter of 06/02/24 XR Chest One View (Exam End: 06/03/2024 2:41 AM) Result Value WORKSTATION ID [id number] Impression No radiographically evident acute cardiopulmonary process. Thank you for letting us participate in the care of this patient. If you are a health care provider and have any questions regarding this report, please contact the number below. For patients who have questions please contact the health manager medicare marketing that requested your imaging first. Electronically signed by: Corazon Mauro MD, [facility] ([phone]), at 06/03/2024 3:[address] Chest wo Contrast (Generic) (Exam End: 06/03/2024 4:33 PM) Result Value WORKSTATION ID [id number] Impression Cardiomegaly. Biventricular ICD leads in place. Thank you for letting us participate in the care of this patient. If you are a health care provider and have any questions regarding this report, please contact the number below. For patients who have questions please contact the health manager medicare marketing that requested your imaging first. Electronically signed by: Stuart Aponte MD, [facility] ([phone]), at 06/03/2024 4:47 PM TTE: Limited echo performed by fellow iron bender to assess LV function. Left ventricle is [...] Infusions: heparin (porcine) infusion 1,400 Units/hr (06/06/24 5904) PRN Meds:.insulin lispro, potassium chloride ER OR [...] ischemic cardiomyopathy with HFrEF (~30% EF), prior NV with stents, DM type 2, HTN, HLD, [...] Dain Colón MD (PGY-1) Cardiology, M1-S2, Pager #[phone] 06/07/24 Associated attestation - Melida Valdes MD [...] a lytic and brought directly to the Compliance Representative Dealer. Cardiac catheterization demonstrated multivessel disease with severe [...] for further guidance. Melida Valdes MD Staff Medical Educator * Dain Colón MD - 06/06/2024 7:17 AM EST Images from the original note were not included. . Cardiology Progress Note Patient info: Name: George Mehta : 1955 PCP: Mauro Berumen MD PCP phone number: [phone] Date of Admission: 06/02/2024 ( Hospital Day 4 days ) Attending:Melida Valdes MD ID: 69 y.o. male with a h/o DM type 2, HTN, HLD, current smoker (2-3 cigarettes/day), HFrEF with anICD for low EF (~30%), and CAD with prior NV x3 with JENNA placed in [place], Melanoma, PAD, presented to [facility] with 1 hour of retrosternal CP (05/13) while watching TV, found to have STEMI. Active Problems: Active Hospital Problems Diagnosis STEMI (ST elevation myocardial infarction) Acute on chronic heart failure with reduced ejection fraction (HFrEF, <= 40%) Coronary artery disease involving chemehuevi coronary artery of chemehuevi heart without angina pectoris Type 2 diabetes [...] in the last 7068 hours. Invalid input(s): [id number] Recent Labs 06/06/24 0653 06/05/24 2231 06/05/24 1622 06/05/24 1134 06/05/24 0727 06/04/24 1943 06/04/24 1526 06/04/24 1109 06/04/24 0711 06/03/24 2005 06/03/24 1748 06/03/24 1114 POCGLU 187 238* 205* 211* 166 175 154 188 182 136 191 166 Heme No results for input(s): LDH, HAPTOGLOBIN, URICACID in the last 168 hours. ABG (Arterial Blood Gas) No results found for: PHART, PO2ART, QXO6JFK, QXA6LAZ Microbiology: Microbiology Results (Last 30 days) No results found for the last 720 hours. Imaging: Results for orders placed or performed during the hospital encounter of 06/02/24 XR Chest One View (Exam End: 06/03/2024 2:41 AM) Result Value WORKSTATION ID [id number] Impression No radiographically evident acute cardiopulmonary process. Thank you for letting us participate in the care of this patient. If you are a health care provider and have any questions regarding this report, please contact the number below. For patients who have questions please contact the health manager medicare marketing that requested your imaging first. Electronically signed by: Corazon Mauro MD, [facility] ([phone]), at 06/03/2024 3:[address] Chest wo Contrast (Generic) (Exam End: 06/03/2024 4:33 PM) Result Value WORKSTATION ID [id number] Impression Cardiomegaly. Biventricular ICD leads in place. Thank you for letting us participate in the care of this patient. If you are a health care provider and have any questions regarding this report, please contact the number below. For patients who have questions please contact the health manager medicare marketing that requested your imaging first. Electronically signed by: Stuart Aponte MD, [facility] ([phone]), at 06/03/2024 4:47 PM TTE: Limited echo performed by fellow iron bender to assess LV function. Left ventricle is [...] ischemic cardiomyopathy with HFrEF (~30% EF), prior NV with stents, DM type 2, HTN, HLD, [...] Dain Colón MD (PGY-1) Cardiology, M1-S2, Pager #[phone] 06/06/24 Associated attestation - Melida Valdes MD [...] a lytic and brought directly to the Compliance Representative Dealer. Cardiac catheterization demonstrated multivessel disease with severe [...] management. Help appreciated Melida Valdes MD Staff Medical Educator * Frederick Dunn MD - 06/05/2024 8:13 AM EDT Images from the original note were not included. . Cardiology Progress Note Patient info: Name: George Mehta : 1955 PCP: Mauro Berumen MD PCP phone number: [phone] Date of Admission: 06/02/2024 ( Hospital Day 3 days ) Attending:Melida Valdes MD ID: 69 y.o. male with a h/o DM type 2, HTN, HLD, current smoker (2-3 cigarettes/day), HFrEF with anICD for low EF (~30%), and CAD with prior NV x3 with JENNA placed in [place], Melanoma, PAD, presented to [facility] with 1 hour of retrosternal CP (05/13) [...] in the last 7068 hours. Invalid input(s): [id number] Recent Labs 06/05/24 1134 06/05/24 0727 06/04/24 1943 06/04/24 1526 06/04/24 1109 06/04/24 0711 06/03/24 2005 06/03/24 1748 06/03/24 1114 06/03/24 0754 06/02/24 2331 POCGLU 211* 166 175 154 188 182 136 191 166 195 156 Heme No results for input(s): LDH, HAPTOGLOBIN, URICACID in the last 168 hours. ABG (Arterial Blood Gas) No results found for: PHART, PO2ART, NNB6IJO, RCP9BNF Microbiology: Microbiology Results (Last 30 days) No results found for the last 720 hours. Imaging: Results for orders placed or performed during the hospital encounter of 06/02/24 XR Chest One View (Exam End: 06/03/2024 2:41 AM) Result Value WORKSTATION ID [id number] Impression No radiographically evident acute cardiopulmonary process. Thank you for letting us participate in the care of this patient. If you are a health care provider and have any questions regarding this report, please contact the number below. For patients who have questions please contact the health manager medicare marketing that requested your imaging first. Electronically signed by: Corazon Mauro MD, [facility] ([phone]), at 06/03/2024 3:[address] Chest wo Contrast (Generic) (Exam End: 06/03/2024 4:33 PM) Result Value WORKSTATION ID [id number] Impression Cardiomegaly. Biventricular ICD leads in place. Thank you for letting us participate in the care of this patient. If you are a health care provider and have any questions regarding this report, please contact the number below. For patients who have questions please contact the health manager medicare marketing that requested your imaging first. Electronically signed by: Stuart Aponte MD, [facility] ([phone]), at 06/03/2024 4:47 PM TTE: Limited echo performed by fellow iron bender to assess LV function. Left ventricle is [...] ischemic cardiomyopathy with HFrEF (~30% EF), prior NV with stents, DM type 2, HTN, HLD, [...] all the information they need regarding the BEHAVIORAL HEALTH CARE COORDINATOR-D.Plan for MRI tomorrow. Starting 40 mg IV [...] a lytic and brought directly to the Compliance Representative Dealer. Cardiac catheterization demonstrated multivessel disease with severe [...] maintenance of 40. Melida Valdes MD Staff Medical Educator * Migel Javier RN - 06/05/2024 6:21 AM EDT Implanted device record scanned into: Chart Review-->Media-->External Cardiology-->03/25/2024. Medtronic ETHERAia MRI Quad CRTD [id number] Serial #: [id number] DDD mode A + Bi/V Rates 50-130 Migel Javier RN * Dain Colón MD - 06/04/2024 11:16 AM EDT Implant Records Requested Type: BEHAVIORAL HEALTH CARE COORDINATOR-D Qualitative Researcher: [employer] Product: [id number] Amplia MRI MRI compatibility: Compatible for 1.5-3 T Model #: [id number] Placed at: [place], [place] Records requested for MRI: 1. Operative report 2. Implant log I requested that these records be sent to our MRI department, Dain Colón MD 06/04/24 11:58 AM * Dain Colón MD - 06/04/2024 6:57 AM EDT Images from the original note were not included. . Cardiology Progress Note Patient info: Name: George Mehta : 1955 PCP: Mauro Berumen MD PCP phone number: [phone] Date of Admission: 06/02/2024 ( Hospital Day 2 days ) Attending:Delroy Fofana MD ID: 69 y.o. male with a h/o DM type 2, HTN, HLD, current smoker (2-3 cigarettes/day), HFrEF with anICD for low EF (~30%), and CAD with prior NV x3 with JENNA placed in [place], Melanoma, PAD, presented to [facility] with 1 hour of retrosternal CP (05/13) [...] in the last 7068 hours. Invalid input(s): IERGMQAWQUZ9F Recent Labs 06/03/24 2005 06/03/24 1748 06/03/24 1114 06/03/24 0754 06/02/24 2331 POCGLU 136 191 166 195 156 Heme No results for input(s): LDH, HAPTOGLOBIN, URICACID in the last 168 hours. ABG (Arterial Blood Gas) No results found for: PHART, PO2ART, IYA7WRA, KMG7DSL Microbiology: Microbiology Results (Last 30 days) No results found for the last 720 hours. Imaging: Results for orders placed or performed during the hospital encounter of 06/02/24 XR Chest One View (Exam End: 06/03/2024 2:41 AM) Result Value WORKSTATION ID [id number] Impression No radiographically evident acute cardiopulmonary process. Thank you for letting us participate in the care of this patient. If you are a health care provider and have any questions regarding this report, please contact the number below. For patients who have questions please contact the health manager medicare marketing that requested your imaging first. Electronically signed by: Corazon Mauro MD, [facility] ([phone]), at 06/03/2024 3:[address] Chest wo Contrast (Generic) (Exam End: 06/03/2024 4:33 PM) Result Value WORKSTATION ID [id number] Impression Cardiomegaly. Biventricular ICD leads in place. Thank you for letting us participate in the care of this patient. If you are a health care provider and have any questions regarding this report, please contact the number below. For patients who have questions please contact the health manager medicare marketing that requested your imaging first. Electronically signed by: Stuart Aponte MD, [facility] ([phone]), at 06/03/2024 4:47 PM TTE: Limited echo performed by fellow iron bender to assess LV function. Left ventricle is [...] ischemic cardiomyopathy with HFrEF (~30% EF), prior NV with stents, DM type 2, HTN, HLD, [...] -Lasix 40 mg IV given in the landscape laborer; assess diuretic response, consider re-dosing -Continue [...] @YESSI@ Dain Colón MD (PGY-1) Cardiology M1-S2, #[id number] 06/04/2024, 6:57 AM Associated attestation - Melida [...] a lytic and brought directly to the Compliance Representative Dealer. Cardiac catheterization demonstrated multivessel disease with severe [...] -Diuresis with Timothyix Melida Valdes MD Staff Medical Educator * Fatmata Mcallister PT - 06/03/2024 3:29 PM EDT Physical Therapy 06/03/24 1527 Evaluation & Treatment Document Type contact Total Minutes, Physical Therapy 0 Comment, Session Not Performed PT consult received/hx/current status reviewed. w/u ongoing following STEMI, intenventional plan TBD. Pt is independently mobile at present, will defer imminent asesssment and f.u as appropriate when POC determined (CABG vs PCI) Fatmata Mcallister PT, [facility] Pager [phone] Inpatient Physical Therapy * Marlin Gómez MD [...] Marlin Gómez MD Cardiology S2, Pager # [phone] 06/03/2024 * Delroy Fofana MD - 06/03/2024 7:16 AM EDT Images from the original note were not included. . Cardiology Progress Note Patient info: Name: George Mehta : 1955 PCP: Mauro Berumen MD PCP phone number: [phone] Date of Admission: 06/02/2024 ( Hospital Day 1 day ) Attending:Nuha Rojo MD ID: 69 y.o. male with a h/o DM type 2, HTN, HLD, current smoker (2-3 cigarettes/day), HFrEF with anICD for low EF (~30%), and CAD with prior NV x3 with JENNA placed in [place], Melanoma, PAD, presented to [facility] with 1 hour of retrosternal CP (05/13) [...] in the last 7068 hours. Invalid input(s): GVGTRQRKMSC7O Recent Labs 06/02/24 2331 POCGLU 156 Heme No results for input(s): LDH, HAPTOGLOBIN, URICACID in the last 168 hours. ABG (Arterial Blood Gas) No results found for: PHART, PO2ART, THO2XYY, HFH1FPM Microbiology: Microbiology Results (Last 30 days) No results found for the last 720 hours. Imaging: Results for orders placed or performed during the hospital encounter of 06/02/24 XR Chest One View (Exam End: 06/03/2024 2:41 AM) Result Value WORKSTATION ID [id number] Impression No radiographically evident acute cardiopulmonary process. Thank you for letting us participate in the care of this patient. If you are a health care provider and have any questions regarding this report, please contact the number below. For patients who have questions please contact the health manager medicare marketing that requested your imaging first. Electronically signed by: Corazon Mauro MD, [facility] ([phone]), at 06/03/2024 3:06 AM TTE: Limited echo performed by fellow iron bender to assess LV function. Left ventricle is [...] ischemic cardiomyopathy with HFrEF (~30% EF), prior NV with stents, DM type 2, HTN, HLD, [...] -Lasix 40 mg IV given in the landscape laborer; assess diuretic response, consider re-dosing -Continue [...] of care per Dain Colón MD (medical illustrator). Please refer to his note above for [...] lytic (TNK) and brought directly to the landscape laborer. The cath demonstrated 3VD with diffuse [...] - 06/13/2024 10:58 AM EST ICU Blue (#[id number]) H&P Patient info: Name: George Mehta : 1955 PCP: Mauro Berumen MD PCP phone number: [phone] Date of Admission: 06/02/2024 ( Hospital Day 11 days ) Attending:Haja Byrnes MD ID: George Mehta is a 69 y.o. male with a h/o DM type 2, HTN, HLD, current smoker (2-3 cigarettes/day), HFrEF with an ICD for low EF (~30%), and CAD with prior NV x3 with JENNA placed in [facility], PAD, presented to [facility] with 1 hour of retrosternal CP (05/13) while watching TV, foundto have STEMI. HPI: Shahnaz Scanlon H&P 06/02 69 y.o. male with a h/o DM type 2, HTN, HLD, current smoker (2-3 cigarettes/day), HFrEF with an ICD for low EF (~30%), and CAD with prior NV x3 with JENNA placed in [place], [facility], PAD, presented to [facility] with 1 hour of retrosternal CP (05/13) while watching TV. CP was non-radiating, not asso ciated with diaphoresis, nausea, or SOB. Denies orthopnea, MARTÍNEZ, palpitations, or LE edema. ECG showed findings consistent with anterior STEMI. He received TNK and was transferred for PCI. Coronary angiography showed a small, non-dominant RCA with yysq-rh-trazftoi disease and a dominant,heavily calcified left system with prior stents in the LAD and OM. The LM bifurcates into the LAD and LCX, both heavily calcified. The proximal LCX has a 75% calcified, aneurysmal lesion, and an 80% calcified lesion distally before a large OM2. OM1 is a DEPUTY ADMINISTRATOR with in-stent restenosis, filling retrograde via collaterals. [...] 40 mg Lasix was administered in the landscape laborer. Cardiac surgery was consulted and plan [...] Blood Gas) No results for input(s): PHART, CGP1HNT, PO2ART, MVH3MLE, LACTATEVEN, NND9ETN, PFRATIOART2 in the last 168 hours. VBG (Venous Blood Gas) Recent Labs 06/10/24 1742 PHVEN 7.34 PO2VEN 24 JVO2NAP 27.4 Mixed Venous Sat No results for input(s): X2KPEJ1 in the last 168 hours. Intake/Output Summary [...] in the last 7068 hours. Invalid input(s): JBAHPNYXBPA9C Recent Labs 06/13/24 0741 06/13/24 0325 06/12/24 2353 06/12/24 1932 06/12/24 1541 06/12/24 1121 06/12/24 0800 06/12/24 0425 06/11/24 2356 06/11/24 2025 06/11/24 1624 06/11/24 1108 POCGLU 126 99 141 158 113 207* 169 132 135 210* 81 233* Heme No results for input(s): LDH, HAPTOGLOBIN, URICACID in the last 168 hours. ABG (Arterial Blood Gas) No results for input(s): PHART, BOQ4GDH, PO2ART, TOU4KKI, LACTATEVEN, KQF1VZU, PFRATIOART2 in the last 168 hours. VBG (Venous Blood Gas) Recent Labs 06/10/24 1742 PHVEN 7.34 PO2VEN 24 LCP0SCZ 27.4 Mixed Venous Sat No results for input(s): T4WAEQ5 in the last 168 hours. Microbiology: Microbiology Results (Last 30 days) No results found for the last 720 hours. Assessment & Plan: George Mehta is a 69 y.o. male with CAD, ischemic cardiomyopathy with HFrEF (~30% EF), prior NV with stents, DM type 2, HTN, HLD, active smoker, presented with anterior STEMI. Angiography revealedsevere multivessel CAD with extensive calcification and YUE 3 flow in all vessels, without a clearculprit lesion. Currently pain-free after TNK, Plavix, ASA, and heparin, with mildly elevated LVEDPat 40 mmHg and mild volume overload. Admitted to [facility] for clarence-operative management following IABP placement. Planned for CABG 06/14. 06/13/2024 Patient now s/p IABP placement. Procedure occurred without complication. IABP set to 1:1. Will continue with heparin for ASCVD. Plan for CABG 06/14. Patient NPO at [place]. #ASCVD / STEMI: -Holding Plavix; continue ASA [...] TUD (abstinent since admission), ASCVD with multipleprior NV and PCIs, ICM/HFrEF LVEF 30% (all territories [...] is in the chart Rebeca Prado MD Photoengraving Sketch Maker PGY6 [id number] * Shahnaz Scanlon MD - [...] low EF (~30%), and CAD with prior NV x3 with JENNA placed in [place], Melanoma, PAD, presented to [facility] with 1 hour of retrosternal CP (05/13) while watching TV. CP was non-radiating, not assoc iated with diaphoresis, nausea, or SOB. Denies orthopnea, MARTÍNEZ, palpitations, or LE edema. ECG showed findings consistent with anterior STEMI. He received TNK and was transferred for PCI. Coronary angiography showed a small, non-dominant RCA with dvln-zv-uygybhdn disease and a dominant,heavily calcified left system with prior stents in the LAD and OM. The LM bifurcates into the LAD and LCX, both heavily calcified. The proximal LCX has a 75% calcified, aneurysmal lesion, and an 80% calcified lesion distally before a large OM2. OM1 is a DEPUTY ADMINISTRATOR with in-stent restenosis, filling retrograde via collaterals. [...] 40 mg Lasix was administered in the landscape laborer. Past Medical History: As per HPI [...] Affect: Mood normal. Behavior: Behavior normal. Diagnostics: [facility] 06/02/2024 Coronary angiography revealed small non [...] ischemic cardiomyopathy with HFrEF (~30% EF), prior NV with stents, DM type 2, HTN, HLD, [...] -Lasix 40 mg IV given in the landscape laborer; assess diuretic response. -Continue carvedilol; hold [...] & Follow-up Care: Contact information for follow-up [facility] [address] [facility] [address] Cardiac Rehab, [address] [facility] [address] RN AVILA confirmed with [facility] that they [...] MEDICARE Payor: [employer] MANAGED MEDICARE / Plan: [facility] MANAGED MEDICARE COMPLETE / Product Type: [...] the outpatient Phase 2 Cardiac Rehabilitation at [facility]. The patient agrees to a referral to this program. The referral will be sent at discharge and the patient should be contacted by the program within 1-2 weeks from discharge. * Plan of Care - Wanda Jaqeuz RN - 06/18/2024 6:15 AM EST George [...] recs Patient is insured through: Primary Insurance: [employer] MANAGED MEDICARE Payor: [employer] MANAGED MEDICARE / Plan: [employer] RPPO MANAGED [...] Referrals: pending clinical course and PT/OT recs [facility] [address] [facility] [address] PHONE: [phone] FAX: [phone] Transportation: family or friend will provide Barriers [...] Agency/Support Group Needs: Homecare agency Agency Choices: [facility]: Medication checks, Registered Nurse, Physical Therapy Agency Referrals: pending clinical course and PT/OT recs [facility]. [address] [facility] [address] PHONE: [phone] FAX: [phone] Transportation: family or friend will provide Barriers [...] Operative Note Patient Name: George Mehta : [id number] MR#: [id number] Case Date: 06/14/2024 Surgeon: Surgeons and Role: * Bobby Loja MD - Primary * Rashi Bass PA - Physician Childbirth And Infant Care Teacher Preoperative diagnosis: CAD, MARIALUISA flickering mass on [...] procedures today and tomorrow. Report called to [facility] - all belongings with patient. PLAN MOVING FORWARD: crime laboratory analyst and transfer to CV. INDIVIDUALIZED FALL [...] Agency/Support Group Needs: Homecare agency, Agency Choices: [facility]. Home Health Services: Medication checks, Registered Nurse, Physical Therapy Agency Referrals: [facility]. [address] [place] [phone] RN / PT Routed 06/10 Transportation: family [...] with home health services when medically ready. line maintenance supervisor/Valve Inserter will continue to follow patient???s progress and remain available if situation changes for coordination of care, psychosocial support and/or discharge planning. Anticipated Date of Discharge: 06/18/2024 Mariia Montero RN CM Extension [phone] * Plan of Care - Migel Javier [...] No Patient is insured through: Primary Insurance: [facility] MANAGED MEDICARE Payor: [facility] MANAGED MEDICARE / Plan: [facility] MANAGED MEDICARE COMPLETE / Product Type: [...] consult for high risk PCI vs CABG line maintenance supervisor/Valve Inserter will continue to follow patient???s progress and remain available if situation changes for coordination of care, psychosocial support and/or discharge planning. Anticipated Date of Discharge: 06/11/2024 Mariia Montero RN Extension [phone] * Plan of Care - Becca Hope [...] ischemic cardiomyopathy with HFrEF (~30% EF), prior NV with stents, DM type 2, HTN, HLD, [...] Breakfast- varies - eggs with khoury or cayman islander muffin Lunch- turkey sandwich Supper- meat and [...] ischemic cardiomyopathy with HFrEF (~30% EF), prior NV with stents, DM type 2, HTN, HLD, [...] Baumann APRN Endocrinology Diabetes Management Service Pager: [phone] Weekends please page [phone] 80 minute visit was spent in counseling [...] y.o. male with a PMHx of previous NV s/p PCI x3, ICM/HFrEF (LVEF 30%) s/p ICD, DMII, HTN, HLD, remote melanoma, and smoker who presented to [facility] last night via EMS after developing acute, severe chest pain while watching TV. Patient was ruled in for STEMI, given TNK, ASA, plavix, heparin gtt, and sent to [facility] [place] for coronary angiography. LHC demonstrated severely calcified left coronary system with notable LCx 75/80% lesions and DEPUTY ADMINISTRATOR OM1 with ISR with collateral retrograde filling, [...] elevation myocardial infarction) Past Medical History: previous NV s/p PCI x3 ICM/HFrEF (LVEF 30%) s/p [...] is large. OM1 appears to be a DEPUTY ADMINISTRATOR, with in stentrestenosis and fills retrograde via [...] y.o. male admitted with STEMI s/p TNK, [facility] showing multivessel CAD including ISR, no [...] to our service. Signed: Paula Treviño PA-C [facility] Section of Cardiac Surgery Date: 06/03/2024 * Initial Assessments - aCtina Estrada MSW - 06/03/2024 10:32 AM EDT Office of Care Management Initial Assessment CHINA Humphrey reviewed record and discussed patient with Care Team. Source of Information: Team, bedside nurse, medical record, and Patient FARM AGENT Introduced self/reviewed role; services accepted. Admitted From: [...] surrogate would be surrogate decision maker per [place] surrogate decision making law. (Only good for 180 days) Any patient receiving care in [place] must abide by [place] law. The hierarchy for surrogate decision making [...] The agent with financial power of family preservation worker or a conservator appointed in accordance with [...] In the past 12 months has the [employer], gas, oil, or water [employer] threatened to shut off services in your [...] in the bathroom) Home Address confirmed as: [address] [place] [address] [address] [facility] [address] Social & Family Supports: All names listed [...] MEDICARE Payor: AARP MANAGED MEDICARE / Plan: [facility] / Product Type: *No Product type* / Secondary Insurance: N/A ; Prescription Coverage: Yes Preferred Pharmacy: [id number] - [facility], [place] - [address] [facility] [address] [facility] [address] [place] Status: Patient is a : No Primary Care Provider confirmed: Mauro Berumen MD [phone] Patient/Caregiver Goals of Treatment: Potential Needs for [...] care as indicated. CH[facility] Min Cardiology, [phone]. [phone] * Brief Op Note - Angeles Gaxiola PA - 06/03/2024 12:23 AM EDT Preliminary Cardiac Catheterization Procedure Note: Patient Name: George Mehta : [id number] MR#: [id number] Case Date: 06/02/2024 - 06/03/2024 Pan Devulcanizer Helper: Surgeons and Role: * Nuha Shen MD - Primary * Angeles Gaxiola PA - Physician Childbirth And Infant Care Teacher Preoperative diagnosis: STEMI Postoperative diagnosis: * STEMI * Procedure(s) performed: RRA access [facility] Coronary angiogram IVUS LM/LAD/LCX Access: 6 Fr RRA A time-out was conducted prior to the start of the procedure to verify the correct patient and procedure, procedure location, and all relevant critical information. Preliminary findings: 69 year old current smoker (1-2 cigarette's per day), DM type 2, hypertension, dyslipidemia, ICD for HFrEF/low EF (~30%), CAD with prior NV and 3 stents historically (in [place]) who presented to [facility] with 1 hour of rest chest pain [...] is large. 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) 06/14/2024 7:34 AM EST CAD Endoscopy W/Video-Asst Vein [place] [facility], Cabg ([id number]) 06/14/2024 7:34 AM EST CAD Cabg, Artery-Vein, Two ([id number]) 06/14/2024 7:34 AM EST CAD Cabg, Arterial, Single ([id number]) 06/14/2024 7:34 AM EST CAD TRANSESOPHAGEAL ECHOCARDIOGRAM IN THE OR Routine 06/14/2024 7:20 AM EST Coronary artery disease involving chemehuevi coronary artery of chemehuevi heart without angina pectoris POC, GLUCOSE Routine [...] 06/13/2024 4:09 PM EST TYPE AND SCREEN ([facility] [place]/CGP/RAFITA) STAT 06/13/2024 11:53 AM EST POC, GLUCOSE [...] O RDERABLES [facility] [place] [address] * (ABNORMAL) Basic Metabolic Panel (06/21/2024 2:09 AM EST) Glucose 169 65 - 199 mg/dL 06/21/2024 3:10 AM EST [facility] Comment:Glucose Concentratio n >=200 mg/dL plus symptoms is consistent with Diabetes Mellitus. Blood Urea Nitrogen 27(H) 10 - 20 mg/dL 06/21/2024 3:10 AM [facility] Creatinine 1.24 0.80 - 1.50 mg/dL 06/21/2024 3:10 AM [facility] Sodium 138 135 - 145 mMol/L 06/21/2024 3:10 AM EST [facility] Potassium 4.2 3.5 - 5.0 mMol/L 06/21/2024 3:10 AM EST [facility] Chloride 100 98 - 107 mMol/L 06/21/2024 3:10 AM [facility] Carbon Dioxide 27 22 - 31 mMol/L 06/21/2024 3:10 AM [facility] Anion Gap 11 5 - 15 mMol/L 06/21/2024 3:10 AM [facility] Calcium 8.7 8.5 - 10.5 mg/dL 06/21/2024 3:10 AM [facility] Est Glomerular Filtration Rate - Male 64 mL/min/1. 73 m?? 06/21/2024 3:10 AM EST [facility] [...] APRN CHEMISTRY ORDERABL ES Performing Organization Address City/[facility]/ZIP Co de Phone Number [facility] [place] [address] * POC, GLUCOSE (06/21/2024 12:04 AM EST) [...] O RDERABLES [facility] [place] [address] * POC, GLUCOSE (06/20/2024 11:14 PM EST) [...] CARE TEST O RDBECKIE Performing Organization Address City/[facility]/ZIP Co de Phone Number [facility] [place] [address] * POC, GLUCOSE (06/20/2024 7:16 PM EST) [...] CARE TEST Abimael MAHER Performing Organization Address [facility] Co de Phone Number [facility] [place] [address] * POC, GLUCOSE (06/20/2024 3:39 PM EST) [...] CARE TEST O NIKA Performing Organization Address City/[facility]/ZIP Co de Phone Number [facility] [place] [address] * POC, GLUCOSE (06/20/2024 12:02 PM EST) Glucometer, POC 173 65 - 199 mg/dL 06/20/2024 12:03 PM EST [facility] Comment:Supplemental ranges: <140 mg/dL before meals <180 mg/dL all other times of the day. Blood CAPILLARY BLOOD / Unknown 06/20/2024 12:02 PM EST 06/20/2024 12:03 PM EST Bobby Loja MD POINT OF CARE TEST Abimael MAHER Performing Organization Address [facility] Co de Phone Number [facility] [place] [address] * POC, GLUCOSE (06/20/2024 7:10 AM EST) Glucometer, POC 130 65 - 199 mg/dL 06/20/2024 7:11 AM [facility] Comment:Supplemental ranges: <140 mg/dL before meals <180 mg/dL all other times of the day. Blood CAPILLARY BLOOD / Unknown 06/20/2024 7:10 AM EST 06/20/2024 7:11 AM EST Bobby Loja MD POINT OF CARE TEST Abimael MAHER Performing Organization Address [facility] de Phone Number [facility] [place] [address] * (ABNORMAL) Basic Metabolic Panel (06/20/2024 2:28 AM EST) Glucose 79 65 - 199 mg/dL 06/20/2024 3:06 AM [facility] Comment:Glucose Concentratio n >=200 mg/dL plus symptoms is consistent with Diabetes Mellitus. Blood Urea Nitrogen 38(H) 10 - 20 mg/dL 06/20/2024 3:06 AM [facility] Creatinine 1.39 0.80 - 1.50 mg/dL 06/20/2024 3:06 AM [facility] Sodium 137 135 - 145 mMol/L 06/20/2024 3:06 AM [facility] Potassium 3.6 3.5 - 5.0 mMol/L 06/20/2024 3:06 AM EST [facility] Chloride 100 98 - 107 mMol/L 06/20/2024 3:06 AM EST [facility] Carbon Dioxide 29 22 - 31 mMol/L 06/20/2024 3:06 AM EST [facility] Anion Gap 8 5 - 15 mMol/L 06/20/2024 3:06 AM [facility] Calcium 8.4(L) 8.5 - 10.5 [...] ORDERABL ES [facility] [place] [address] * POC, GLUCOSE (06/20/2024 12:32 AM EST) Glucometer, POC 86 65 - 199 mg/dL 06/20/2024 12:32 AM EST [facility] Comment:Supplemental ranges: <140 mg/dL before meals <180 mg/dL all other times of the day. Blood CAPILLARY BLOOD / Unknown 06/20/2024 12:32 AM EST 06/20/2024 12:32 AM EST Bobby Loja MD POINT OF CARE TEST O NIKA Performing Organization Address City/[facility]/ZIP Co de Phone Number [facility] [place] [address] * (ABNORMAL) POC, GLUCOSE (06/20/2024 12:02 AM EST) Glucometer, POC 59(L) 65 - 199 mg/dL 06/20/2024 12:02 AM EST [facility] Comment:Supplemental ranges: <140 mg/dL before meals <180 mg/dL all other times of the day. Blood CAPILLARY BLOOD / Unknown 06/20/2024 12:02 AM EST 06/20/2024 12:03 AM EST Bobby Loja MD POINT OF CARE TEST O NKIA Performing Organization Address [facility] Co de Phone Number [facility] [place] [address] * POC, GLUCOSE (06/19/2024 8:15 PM EST) Glucometer, POC 131 65 - 199 mg/dL 06/19/2024 8:15 PM EST [facility] Comment:Supplemental ranges: <140 mg/dL before meals <180 mg/dL all other times of the day. Blood CAPILLARY BLOOD / Unknown 06/19/2024 8:15 PM EST 06/19/2024 8:15 PM EST Bobby Loja MD POINT OF CARE TEST O NIKA Performing Organization Address City/[facility]/ZIP Co de Phone Number [facility] [place] [address] * POC, GLUCOSE (06/19/2024 6:01 PM EST) [...] CARE TEST O RDBECKIE Performing Organization Address City/[facility] Co de Phone Number [facility] [place] [address] * POC, GLUCOSE (06/19/2024 4:51 PM EST) [...] TEST O NIKA Performing Organization Address [facility] Co de Phone Number [facility] [place] [address] * POC, GLUCOSE (06/19/2024 12:37 PM EST) [...] CARE TEST O NIKA Performing Organization Address City/[facility] Co de Phone Number [facility] [place] [address] * POC, GLUCOSE (06/19/2024 11:20 AM EST) Glucometer, POC 185 65 - 199 mg/dL 06/19/2024 11:21 AM EST [facility] Comment:Supplemental ranges: <140 mg/dL before meals <180 mg/dL all other times of the day. Blood CAPILLARY BLOOD / Unknown 06/19/2024 11:20 AM EST 06/19/2024 11:21 AM EST Bobby Loja MD POINT OF CARE TEST O NIKA Performing Organization Address City/[facility]/ZIP Co de Phone Number [facility] [place] [address] * POC, GLUCOSE (06/19/2024 7:21 AM EST) Glucometer, POC 125 65 - 199 mg/dL 06/19/2024 7:21 AM EST [facility] Comment:Supplemental ranges: <140 mg/dL before meals <180 mg/dL all other times of the day. Blood CAPILLARY BLOOD / Unknown 06/19/2024 7:21 AM EST 06/19/2024 7:22 AM EST Bobby Loja MD POINT OF CARE TEST O NIKA Performing Organization Address [facility] Co de Phone Number [facility] [place] [address] * POC, GLUCOSE (06/19/2024 4:52 AM EST) Glucometer, POC 125 65 - 199 mg/dL 06/19/2024 4:52 AM EST [facility] Comment:Supplemental ranges: <140 mg/dL before meals <180 mg/dL all other times of the day. Blood CAPILLARY BLOOD / Unknown 06/19/2024 4:52 AM EST 06/19/2024 4:52 AM EST Bobby Loja MD POINT OF CARE TEST O NIKA Performing Organization Address City/[facility]/ZIP Co de Phone Number [facility] [place] [address] * POC, GLUCOSE (06/19/2024 4:13 AM EST) Glucometer, POC 67 65 - 199 mg/dL 06/19/2024 4:13 AM EST [facility] Comment:Supplemental ranges: <140 mg/dL before meals <180 mg/dL all other times of the day. Blood CAPILLARY BLOOD / Unknown 06/19/2024 4:13 AM EST 06/19/2024 4:13 AM EST Bobby Loja MD POINT OF CARE TEST O NIKA Performing Organization Address [facility] Co de Phone Number [facility] [place] [address] * (ABNORMAL) POC, GLUCOSE (06/19/2024 3:48 AM EST) Glucometer, POC 51(LLL) 65 - 199 mg/dL 06/19/2024 3:48 AM EST [facility] Comment:Supplemental ranges: <140 mg/dL before meals <180 mg/dL all other times of the day. Blood CAPILLARY BLOOD / Unknown 06/19/2024 3:48 AM EST 06/19/2024 3:48 AM EST Bobby Loja MD POINT OF CARE TEST O RDERAPIETER Performing Organization Address City/[facility]/ZIP Co de Phone Number [facility] [place] [address] * (ABNORMAL) Basic Metabolic Panel (06/19/2024 3:44 AM EST) Glucose 53(LLL) 65 - 199 mg/dL 06/19/2024 4:48 AM EST [facility] Comment:Glucose Concentratio n >=200 mg/dL plus symptoms is consistent with Diabetes Mellitus. Blood Urea Nitrogen 42(H) 10 - 20 mg/dL 06/19/2024 4:48 AM EST [facility] Creatinine 1.29 0.80 - 1.50 mg/dL 06/19/2024 4:48 AM EST [facility] Sodium 138 135 - 145 mMol/L 06/19/2024 4:48 AM [facility] Potassium 3.6 3.5 - 5.0 mMol/L 06/19/2024 4:48 AM [facility] Chloride 100 98 - 107 mMol/L 06/19/2024 4:48 AM [facility] Carbon Dioxide 29 22 - 31 mMol/L 06/19/2024 4:48 AM [facility] Anion Gap 9 5 - 15 mMol/L 06/19/2024 4:48 AM [facility] Calcium 8.8 8.5 - 10.5 mg/dL 06/19/2024 4:48 AM [facility] Est Glomerular Filtration Rate - Male 61 mL/min/1. 73 m?? 06/19/2024 4:48 AM [facility] Comment: This patient's estimated GFR [...] EST 06/19/2024 3:51 AM EST Keila Dayan COMPLIANCE TESTER CHEMISTRY ORDERABL ES [facility] [place] [address] * POC, GLUCOSE (06/19/2024 12:23 AM EST) Glucometer, POC 82 65 - 199 mg/dL 06/19/2024 12:23 AM [facility] Comment:Supplemental ranges: <140 mg/dL before meals <180 mg/dL all other times of the day. Blood CAPILLARY BLOOD / Unknown 06/19/2024 12:23 AM EST 06/19/2024 12:23 AM EST Narrative Authorizing Provider Result Saranya Loja MD POINT OF CARE TEST O NIKA Performing Organization Address City/[facility]/ZIP Co de Phone Number [facility] [place] [address] * POC, GLUCOSE (06/18/2024 11:08 PM EST) Glucometer, POC 73 65 - 199 mg/dL 06/18/2024 11:08 PM EST [facility] Comment:Supplemental ranges: <140 mg/dL before meals <180 mg/dL all other times of the day. Blood CAPILLARY BLOOD / Unknown 06/18/2024 11:08 PM EST 06/18/2024 11:08 PM EST Bobby Loja MD POINT OF CARE TEST Abimael MAHER Performing Organization Address [facility] Co de Phone Number [facility] [place] [address] * POC, GLUCOSE (06/18/2024 7:32 PM EST) [...] CARE TEST O NIKA Performing Organization Address City/[facility]/ZIP Co de Phone Number [facility] [place] [address] * POC, GLUCOSE (06/18/2024 6:08 PM EST) [...] O NIKA [facility] [place] [address] * POC, GLUCOSE (06/18/2024 4:17 PM EST) Glucometer, POC 144 65 - 199 mg/dL 06/18/2024 4:17 PM EST [facility] Comment:Supplemental ranges: <140 mg/dL before meals <180 mg/dL all other times of the day. Blood CAPILLARY BLOOD / Unknown 06/18/2024 4:17 PM EST 06/18/2024 4:17 PM EST Bobby Loja MD POINT OF CARE TEST O NIKA Performing Organization Address [facility]/ZIP Co de Phone Number [facility] [place] [address] * POC, GLUCOSE (06/18/2024 12:09 PM EST) [...] O NIKA [facility] [place] [address] * POC, GLUCOSE (06/18/2024 7:49 AM EST) [...] O RDERABLES [facility] [place] [address] * (ABNORMAL) Basic Metabolic Panel (06/18/2024 4:19 AM EST) Glucose 103 65 - 199 mg/dL 06/18/2024 5:03 AM [facility] Comment:Glucose Concentratio n >=200 mg/dL plus symptoms is consistent with Diabetes Mellitus. Blood Urea Nitrogen 43(H) 10 - 20 mg/dL 06/18/2024 5:03 AM [facility] Creatinine 1.45 0.80 - 1.50 mg/dL 06/18/2024 5:03 AM [facility] Sodium 131(L) 135 - 145 mMol/L 06/18/2024 5:03 AM [facility] Potassium 4.2 3.5 - 5.0 mMol/L 06/18/2024 5:03 AM [facility] Chloride 97(L) 98 - 107 mMol/L 06/18/2024 5:03 AM [facility] Carbon Dioxide 25 22 - 31 mMol/L 06/18/2024 5:03 AM [facility] Anion Gap 9 5 - 15 mMol/L 06/18/2024 5:03 AM [facility] Calcium 8.5 8.5 - 10.5 mg/dL 06/18/2024 5:03 AM [facility] Est Glomerular Filtration Rate - Male 53 mL/min/1. 73 m?? 06/18/2024 5:03 AM EST [facility] [...] APRN CHEMISTRY ORDERABL ES Performing Organization Address City/[facility]/ZIP Co de Phone Number [facility] [place] [address] * POC, GLUCOSE (06/18/2024 3:50 AM EST) Glucometer, POC 99 65 - 199 mg/dL 06/18/2024 3:51 AM EST [facility] Comment:Supplemental ranges: <140 mg/dL before meals <180 mg/dL all other times of the day. Blood CAPILLARY BLOOD / Unknown 06/18/2024 3:50 AM EST 06/18/2024 3:51 AM EST Bobby Ljoa MD POINT OF CARE TEST O RDERABLES [facility] [place] [address] * POC, GLUCOSE (06/17/2024 11:10 PM EST) Glucometer, POC 92 65 - 199 mg/dL 06/17/2024 11:10 PM EST [facility] Comment:Supplemental ranges: <140 mg/dL before meals <180 mg/dL all other times of the day. Blood CAPILLARY BLOOD / Unknown 06/17/2024 11:10 PM EST 06/17/2024 11:10 PM EST Bobby Loja MD POINT OF CARE TEST O NIKA Performing Organization Address [facility] Co de Phone Number [facility] [place] [address] * POC, GLUCOSE (06/17/2024 7:54 PM EST) Glucometer, POC 126 65 - 199 mg/dL 06/17/2024 7:54 PM EST [facility] Comment:Supplemental ranges: <140 mg/dL before meals <180 mg/dL all other times of the day. Blood CAPILLARY BLOOD / Unknown 06/17/2024 7:54 PM EST 06/17/2024 7:54 PM EST Bobby Loja MD POINT OF CARE TEST O NIKA Performing Organization Address [facility] Co de Phone Number [facility] [place] [address] * POC, GLUCOSE (06/17/2024 4:07 PM EST) [...] CARE TEST O NIKA Performing Organization Address City/[facility] Co de Phone Number [facility] [place] [address] * XR Chest PA & Lateral (Generic) (06/17/2024 1:46 PM EST) WORKSTATION ID [id number] RAD Anatomical Region Laterality Modality Chest N/A [...] who have questions please contact the health manager medicare marketing that requested your imaging first. ? Electronically signed by: Josselyn Spence MD, [facility] ([phone]), at 06/17/2024 4:49 PM Narrative 06/17/2024 4:49 [...] patients who have questions please contactthe health manager medicare marketing that requested your imaging first. Electronically signed by: Josselyn Spence MD, [facility]([phone]), at 06/17/2024 4:49 PM Keila Hanley COMPLIANCE TESTER IMG DX ORDERABLES * (ABNORMAL) POC, GLUCOSE [...] CARE TEST O NIKA Performing Organization Address City/[facility]/ZIP Co de Phone Number [facility] [place] [address] * POC, GLUCOSE (06/17/2024 7:49 AM EST) [...] O NIKA [facility] [place] [address] * POC, GLUCOSE (06/17/2024 4:16 AM EST) Pathologist [facility] Glucometer, POC 139 65 - 199 mg/dL 06/17/2024 4:16 AM EST [facility] Comment:Supplemental ranges: <140 mg/dL before meals <180 mg/dL all other times of the day. Blood CAPILLARY BLOOD / Unknown 06/17/2024 4:16 AM EST 06/17/2024 4:17 AM EST Bobby Loja MD POINT OF CARE TEST O RDERABLES Performing Organization Address City/[facility]/ZIP Co de Phone Number [facility] [place] [address] * Lactate, Whole Blood (06/17/2024 2:39 AM EST) [facility] Lactate, Whole Blood 1.3 0.5 - 2.2 mmol/L 06/17/2024 2:46 AM EST [facility] Blood VENOUS BLOOD SPECIMEN / Unknown Venipuncture / Unknown 06/17/2024 2:39 AM EST 06/17/2024 2:43 AM EST Bobby Loja MD CHEMISTRY ORDERABLES [facility] [place] [address] * (ABNORMAL) Hemogram (06/17/2024 2:39 AM EST) [facility] White Blood Cell 13.53(H) 4.00 - 9.50 x10(3)/mc L 06/17/2024 2:53 AM EST [facility] Red Blood Cell 3.55(L) 4.58 - 5.54 x10(6)/mc L 06/17/2024 2:53 AM EST [facility] Hemoglobin 10.8(L) 13.7 - 16.5 g/dL 06/17/2024 2:53 AM EST [facility] Hematocrit 33.0(L) 40.5 - 48.5 % 06/17/2024 2:53 AM [facility] Mean Cell Volume 93.0 82.9 - 93.1 fL 06/17/2024 2:53 AM [facility] Mean Cell Hemoglobin 30.4 27.5 - 32.1 pg 06/17/2024 2:53 AM [facility] Mean Cell Hemoglobin Concentration 32.7 32.0 - 35.7 g/dL 06/17/2024 2:53 AM [facility] Platelet 101(L) 145 - 357 x10(3)/mc L 06/17/2024 2:53 AM [facility] Mean Platelet Volume 10.4 7.6 - 12.9 fL 06/17/2024 2:53 AM [facility] RDW Standard Deviation 48.4(H) 36.0 - 45.0 fL 06/17/2024 2:53 AM [facility] RDW coefficient of variation 14.1(H) 11.4 - 13.8 % 06/17/2024 2:53 AM [facility] NRBC% auto 0.0 % 06/17/2024 2:53 AM [facility] NRBC Absolute <0.01 <0.01 x10(3)/mc L 06/17/2024 2:53 AM [facility] Blood VENOUS BLOOD SPECIMEN / Unknown Venipuncture / Unknown 06/17/2024 2:39 AM EST 06/17/2024 2:43 AM EST Bobby Loja MD HEMATOLOGY ORDERABLE S [facility] [place] [address] * (ABNORMAL) Basic Metabolic Panel (06/17/2024 2:39 AM EST) Glucose 149 65 - 199 mg/dL 06/17/2024 3:14 AM [facility] Comment:Glucose Concentratio n >=200 mg/dL plus symptoms is consistent with Diabetes Mellitus. Blood Urea Nitrogen 42(H) 10 - 20 mg/dL 06/17/2024 3:14 AM [facility] Creatinine 1.52(H) 0.80 - 1.50 mg/dL 06/17/2024 3:14 AM [facility] Sodium 133(L) 135 - 145 mMol/L 06/17/2024 3:14 AM [facility] Potassium 4.5 3.5 - 5.0 mMol/L 06/17/2024 3:14 AM [facility] Chloride 101 98 - 107 mMol/L 06/17/2024 3:14 AM [facility] Carbon Dioxide 23 22 - 31 mMol/L 06/17/2024 3:14 AM [facility] Anion Gap 9 5 - 15 mMol/L 06/17/2024 3:14 AM [facility] Calcium 8.8 8.5 - 10.5 mg/dL 06/17/2024 3:14 AM [facility] Est Glomerular Filtration Rate - Male 50 mL/min/1. 73 m?? 06/17/2024 3:14 AM [facility] Comment: This patient's estimated GFR [...] CHEMISTRY ORDERABLES [facility] [place] [address] * (ABNORMAL) POC, GLUCOSE (06/17/2024 12:13 AM EST) Glucometer, POC 211(H) 65 - 199 mg/dL 06/17/2024 12:13 AM EST [facility] Comment:Supplemental ranges: <140 mg/dL before meals <180 mg/dL all other times of the day. Blood CAPILLARY BLOOD / Unknown 06/17/2024 12:13 AM EST 06/17/2024 12:14 AM EST Bobby Loja MD POINT OF CARE TEST O NIKA Performing Organization Address City/[facility] Co de Phone Number [facility] [place] [address] * (ABNORMAL) POC, GLUCOSE (06/16/2024 7:22 PM [...] O NIKA [facility] [place] [address] * (ABNORMAL) POC, GLUCOSE (06/16/2024 6:14 PM EST) Glucometer, POC 220(H) 65 - 199 mg/dL 06/16/2024 6:14 PM EST [facility] Comment:Supplemental ranges: <140 mg/dL before meals <180 mg/dL all other times of the day. Blood CAPILLARY BLOOD / Unknown 06/16/2024 6:14 PM EST 06/16/2024 6:14 PM EST Bobby Loja MD POINT OF CARE TEST O RDBECKIE Performing Organization Address [facility] Co de Phone Number [facility] [place] [address] * Lactate, Whole Blood (06/16/2024 6:14 PM EST) Lactate, Whole Blood 1.8 0.5 - 2.2 mmol/L 06/16/2024 6:27 PM EST [facility] Blood VENOUS BLOOD SPECIMEN / Unknown Venipuncture / Unknown 06/16/2024 6:14 PM EST 06/16/2024 6:25 PM EST Bobby Loja MD CHEMISTRY ORDERABLES Performing Organization Address [facility] Phone Number [facility] [place] [address] * (ABNORMAL) POC, GLUCOSE (06/16/2024 4:14 PM [...] TEST O NIKA Performing Organization Address [facility] Co de Phone Number [facility] [place] [address] * POC, GLUCOSE (06/16/2024 11:49 AM EST) [...] O RDERABLES [facility] [place] [address] * (ABNORMAL) Hemogram (06/16/2024 11:44 AM EST) White Blood Cell 17.91(H) 4.00 - 9.50 x10(3)/mc L 06/16/2024 12:25 PM EST [facility] Red Blood Cell 3.47(L) 4.58 - 5.54 x10(6)/mc L 06/16/2024 12:25 PM [facility] Hemoglobin 10.5(L) 13.7 - 16.5 g/dL 06/16/2024 12:25 PM [facility] Hematocrit 33.1(L) 40.5 - 48.5 % 06/16/2024 12:25 PM [facility] Mean Cell Volume 95.4(H) 82.9 - 93.1 fL 06/16/2024 12:25 PM [facility] Mean Cell Hemoglobin 30.3 27.5 - 32.1 pg 06/16/2024 12:25 PM [facility] Mean Cell Hemoglobin Concentration 31.7(L) 32.0 - 35.7 g/dL 06/16/2024 12:25 PM [facility] Platelet 101(L) 145 - 357 x10(3)/mc L 06/16/2024 12:25 PM [facility] Mean Platelet Volume 10.6 7.6 - 12.9 fL 06/16/2024 12:25 PM [facility] RDW Standard Deviation 49.5(H) 36.0 - 45.0 fL 06/16/2024 12:25 PM [facility] RDW coefficient of variation 14.2(H) 11.4 - 13.8 % 06/16/2024 12:25 PM EST [facility] NRBC% auto 0.0 % 06/16/2024 12:25 PM EST [facility] NRBC Absolute <0.01 <0.01 x10(3)/mc L 06/16/2024 12:25 PM EST [facility] Blood VENOUS BLOOD SPECIMEN / Unknown Venipuncture / Unknown 06/16/2024 11:44 AM EST 06/16/2024 12:03 PM EST Bobby Loja MD HEMATOLOGY ORDERABLE S Performing Organization Address [facility]/ZIP Co de Phone Number [facility] [place] [address] * Lactate, Whole Blood (06/16/2024 9:02 AM EST) Lactate, Whole Blood 1.8 0.5 - 2.2 mmol/L 06/16/2024 9:19 AM EST [facility] Blood VENOUS BLOOD SPECIMEN / Unknown Venipuncture / Unknown 06/16/2024 9:02 AM EST 06/16/2024 9:17 AM EST Bobby Loja MD CHEMISTRY ORDERABLES Performing Organization Address [facility] Co de Phone Number [facility] [place] [address] * POC, GLUCOSE (06/16/2024 7:44 AM EST) [...] O RDERABLES [facility] [place] [address] * POC, GLUCOSE (06/16/2024 4:01 AM EST) [...] O RDERAPIETER [facility] [place] [address] * (ABNORMAL) Basic Metabolic Panel (06/16/2024 2:23 AM EST) Glucose 177 65 - 199 mg/dL 06/16/2024 3:13 AM [facility] Comment:Glucose Concentratio n >=200 mg/dL plus symptoms is consistent with Diabetes Mellitus. Blood Urea Nitrogen 37(H) 10 - 20 mg/dL 06/16/2024 3:13 AM [facility] Creatinine 2.10(H) 0.80 - 1.50 mg/dL 06/16/2024 3:13 AM [facility] Sodium 132(L) 135 - 145 mMol/L 06/16/2024 3:13 AM [facility] Potassium 4.5 3.5 - 5.0 mMol/L 06/16/2024 3:13 AM [facility] Chloride 99 98 - 107 mMol/L 06/16/2024 3:13 AM [facility] Carbon Dioxide 22 22 - 31 mMol/L 06/16/2024 3:13 AM [facility] Anion Gap 11 5 - 15 mMol/L 06/16/2024 3:13 AM [facility] Calcium 9.0 8.5 - 10.5 mg/dL 06/16/2024 3:13 AM EST [facility] Est Glomerular Filtration Rate - Male 34 mL/min/1. 73 m?? 06/16/2024 3:13 AM EST [facility] Loja MD CHEMISTRY ORDERABLES Performing Organization Address City/[facility]/ZIP Co de Phone Number [facility] [place] [address] * POC, GLUCOSE (06/16/2024 2:21 AM EST) [...] Organization Address City/[facility]/ZIP Co de Phone Number [facility] [place] [address] * (ABNORMAL) POC, GLUCOSE (06/16/2024 12:09 AM [...] TEST O NIKA Performing Organization Address [facility] Co de Phone Number [facility] [place] [address] * (ABNORMAL) POC, GLUCOSE (06/15/2024 10:07 PM [...] TEST O NIKA Performing Organization Address [facility] Co de Phone Number [facility] [place] [address] * (ABNORMAL) POC, GLUCOSE (06/15/2024 7:56 PM EST) Glucometer, POC 304(H) 65 - 199 mg/dL 06/15/2024 7:56 PM EST [facility] Comment:Supplemental ranges: <140 mg/dL before meals <180 mg/dL all other times of the day. Blood CAPILLARY BLOOD / Unknown 06/15/2024 7:56 PM EST 06/15/2024 7:56 PM EST Bobby Loja MD POINT OF CARE TEST Abimael MHAER Performing Organization Address City/[facility] Co de Phone Number [facility] [place] [address] * (ABNORMAL) POC, GLUCOSE (06/15/2024 7:52 PM EST) Glucometer, POC 288(H) 65 - 199 mg/dL 06/15/2024 7:52 PM EST [facility] Comment:Supplemental ranges: <140 mg/dL before meals <180 mg/dL all other times of the day. Blood CAPILLARY BLOOD / Unknown 06/15/2024 7:52 PM EST 06/15/2024 7:52 PM EST Bobby Loja MD POINT OF CARE TEST O NIKA Performing Organization Address City/[facility]/ZIP Co de Phone Number [facility] [place] [address] * POC, GLUCOSE (06/15/2024 4:21 PM EST) [...] O NIKA [facility] [place] [address] * POC, GLUCOSE (06/15/2024 3:27 PM EST) Glucometer, POC 155 65 - 199 mg/dL 06/15/2024 3:27 PM EST [facility] Comment:Supplemental ranges: <140 mg/dL before meals <180 mg/dL all other times of the day. Blood CAPILLARY BLOOD / Unknown 06/15/2024 3:27 PM EST 06/15/2024 3:27 PM EST Bobby Loja MD POINT OF CARE TEST O NIKA Performing Organization Address [facility] Co de Phone Number [facility] [place] [address] * POC, GLUCOSE (06/15/2024 2:23 PM EST) Glucometer, POC 160 65 - 199 mg/dL 06/15/2024 2:23 PM EST [facility] Comment:Supplemental ranges: <140 mg/dL before meals <180 mg/dL all other times of the day. Blood CAPILLARY BLOOD / Unknown 06/15/2024 2:23 PM EST 06/15/2024 2:23 PM EST Bobby Loja MD POINT OF CARE TEST O NIKA Performing Organization Address [facility] Co de Phone Number [facility] [place] [address] * POC, GLUCOSE (06/15/2024 1:26 PM EST) Glucometer, POC 167 65 - 199 mg/dL 06/15/2024 1:26 PM EST [facility] Comment:Supplemental ranges: <140 mg/dL before meals <180 mg/dL all other times of the day. Blood CAPILLARY BLOOD / Unknown 06/15/2024 1:26 PM EST 06/15/2024 1:26 PM EST Bobby Loja MD POINT OF CARE TEST O NIKA Performing Organization Address City/[facility] Co de Phone Number [facility] [place] [address] * (ABNORMAL) POC, GLUCOSE (06/15/2024 12:55 PM [...] Organization Address City/[facility]/ZIP Co de Phone Number [facility] [place] [address] * (ABNORMAL) POC, GLUCOSE (06/15/2024 11:29 AM EST) Glucometer, POC 220(H) 65 - 199 mg/dL 06/15/2024 11:29 AM EST [facility] Comment:Supplemental ranges: <140 mg/dL before meals <180 mg/dL all other times of the day. Blood CAPILLARY BLOOD / Unknown 06/15/2024 11:29 AM EST 06/15/2024 11:29 AM EST Bobby Loja MD POINT OF CARE TEST Abimael MAHER Performing Organization Address City/[facility] Co de Phone Number [facility] [place] [address] * (ABNORMAL) Basic Metabolic Panel (06/15/2024 11:23 AM EST) Glucose 215(H) 65 - 199 mg/dL 06/15/2024 12:08 PM EST [facility] Comment:Glucose Concentratio n >=200 mg/dL plus symptoms is consistent with Diabetes Mellitus. Blood Urea Nitrogen 24(H) 10 - 20 mg/dL 06/15/2024 12:08 PM [facility] Creatinine 1.54(H) 0.80 - 1.50 mg/dL 06/15/2024 12:08 PM EST [facility] Sodium 135 135 - 145 mMol/L 06/15/2024 12:08 PM [facility] Potassium 4.5 3.5 - 5.0 mMol/L 06/15/2024 12:08 PM [facility] Chloride 105 98 - 107 mMol/L 06/15/2024 12:08 PM [facility] Carbon Dioxide 19(L) 22 - 31 mMol/L 06/15/2024 12:08 PM EST [facility] Anion Gap 11 5 - 15 mMol/L 06/15/2024 12:08 PM EST [facility] Calcium 8.3(L) 8.5 - 10.5 mg/dL 06/15/2024 12:08 PM EST [facility] Est Glomerular Filtration Rate - Male 49 mL/min/1. 73 m?? 06/15/2024 12:08 PM EST [facility] [...] Loja MD CHEMISTRY ORDERABLES Performing Organization Address City/[facility]/ZIP Co de Phone Number [facility] [place] [address] * POC, GLUCOSE (06/15/2024 10:29 AM EST) [facility] Signature Glucometer, POC 189 65 - 199 mg/dL 06/15/2024 10:29 AM EST [facility] Comment:Supplemental ranges: <140 mg/dL before meals <180 mg/dL all other times of the day. Blood CAPILLARY BLOOD / Unknown 06/15/2024 10:29 AM EST 06/15/2024 10:29 AM EST Bobby Loja MD POINT OF CARE TEST O RDERABLES [facility] [place] [address] * POC, GLUCOSE (06/15/2024 9:45 AM EST) Glucometer, POC 178 65 - 199 mg/dL 06/15/2024 9:45 AM [facility] Comment:Supplemental ranges: <140 mg/dL before meals <180 mg/dL all other times of the day. Blood CAPILLARY BLOOD / Unknown 06/15/2024 9:45 AM EST 06/15/2024 9:45 AM EST Bobby Loja MD POINT OF CARE TEST Abimael MAHER Performing Organization Address City/[facility]/ZIP Co de Phone Number [facility] [place] [address] * (ABNORMAL) Cooximetry, POC (06/15/2024 9:31 AM EST) pO2, Coox 38 mmHg 06/15/2024 9:34 AM [facility] Hemoglobin, Coox 12.9(L) 13.7 - 16.5 g/dL 06/15/2024 9:34 AM [facility] Oxyhemoglobin, Coox 72.1 % 06/15/2024 9:34 AM [facility] Carboxyhemoglo bin, Coox 0.9 % 06/15/2024 9:34 AM [facility] Comment: Nonsmokers: 0.5-1.5% COHB ?? Smokers: Variable ??but usually less than 10% ?? Toxic: 20-30% COHB ?? Lethal: Greater than 60% COHB Methemoglobin, Coox 0.3 <=1.5 % 06/15/2024 9:34 AM [facility] Blood (Mixed Venous) 06/15/2024 9:31 AM EST 06/15/2024 9:34 AM EST Bobby Loja MD POINT OF CARE TEST O RDERABLES Performing Organization Address [facility]/ZIP Co de Phone Number [facility] [place] [address] * Cooximetry, POC (06/15/2024 9:22 AM EST) pO2, Coox 30 mmHg 06/15/2024 9:25 AM [facility] Hemoglobin, Coox 06/15/2024 9:25 AM [facility] Comment:QUES Oxyhemoglobin, Coox 06/15/2024 9:25 AM [facility] Comment:QUES Carboxyhemoglo bin, Coox 06/15/2024 9:25 AM [facility] Comment:QUES Methemoglobin, Coox 06/15/2024 9:25 AM [facility] Comment:QUES Blood (Mixed Venous) 06/15/2024 9:22 AM EST 06/15/2024 9:25 AM EST Bobby Loja MD POINT OF CARE TEST O RDERABLES Performing Organization Address [facility] Co de Phone Number [facility] [place] [address] * (ABNORMAL) Blood Gas, Arterial POC (06/15/2024 9:19 AM EST) pH, Arterial 7.31(L) 7.35 - 7.45 06/15/2024 9:21 AM [facility] PCO2, Arterial 36 35 - 45 mmHg 06/15/2024 9:21 AM [facility] PO2, Arterial 94 85 - 104 mmHg 06/15/2024 9:21 AM [facility] Bicarbonate, Arterial 18.0(L) 20.0 - 26.0 mmol/L 06/15/2024 9:21 AM [facility] Base Excess, Arterial -8.2(L) -3.0 - 3.0 mmol/L 06/15/2024 9:21 AM [facility] Hemoglobin, Arterial 12.7(L) 13.7 - 16.5 g/dL 06/15/2024 9:21 AM [facility] Oxyhemoglobin, Arterial 96.0 94.0 - 97.0 % 06/15/2024 9:21 AM [facility] Carboxyhemoglobin , Arterial 0.5 % 06/15/2024 9:21 AM [facility] Comment: Nonsmokers: 0.5-1.5% COHB ?? Smokers: Variable ??but usually less than 10% ?? Toxic: 20-30% COHB ?? Lethal: Greater than 60% COHB Methemoglobin, Arterial 0.3 <=1.5 % 06/15/2024 9:21 AM [facility] Sodium, Arterial 136 135 - 145 mmol/L 06/15/2024 9:21 AM [facility] Potassium, Arterial 4.0 3.5 - 5.0 mmol/L 06/15/2024 9:21 AM [facility] Chloride, Arterial 106 98 - 107 mmol/L 06/15/2024 9:21 AM [facility] Lactate, Arterial 1.7 0.5 - 2.2 mmol/L 06/15/2024 9:21 AM [facility] Flow Rate 2.0 L/min 06/15/2024 9:21 AM [facility] IONIZED CALCIUM, ARTERIAL 1.14(L) 1.15 - 1.33 mmol/L 06/15/2024 9:21 AM [facility] Glucose, Arterial 193 65 - 199 mg/dL 06/15/2024 9:21 AM [facility] Comment:Glucose Concentratio n >=200 mg/dL plus symptoms is consistent with Diabetes Mellitus. Blood ARTERIAL BLOOD / Unknown 06/15/2024 9:19 AM EST 06/15/2024 9:20 AM EST Bobby Loja MD POINT OF CARE TEST O RDERABLES [facility] [place] [address] * (ABNORMAL) POC, GLUCOSE (06/15/2024 8:37 AM EST) Glucometer, POC 204(H) 65 - 199 mg/dL 06/15/2024 8:37 AM EST [facility] Comment:Supplemental ranges: <140 mg/dL before meals <180 mg/dL all other times of the day. Blood CAPILLARY BLOOD / Unknown 06/15/2024 8:37 AM EST 06/15/2024 8:37 AM EST Bobby Loja MD POINT OF CARE TEST O NIKA Performing Organization Address City/[facility]/ZIP Co de Phone Number [facility] [place] [address] * POC, GLUCOSE (06/15/2024 7:37 AM EST) [...] Organization Address City/[facility]/ZIP Co de Phone Number [facility] [place] [address] * (ABNORMAL) POC, GLUCOSE (06/15/2024 7:01 AM EST) Glucometer, POC 203(H) 65 - 199 mg/dL 06/15/2024 7:01 AM EST [facility] Comment:Supplemental ranges: <140 mg/dL before meals <180 mg/dL all other times of the day. Blood CAPILLARY BLOOD / Unknown 06/15/2024 7:01 AM EST 06/15/2024 7:01 AM EST Bobby Loja MD POINT OF CARE TEST O RDERABLES [facility] [place] [address] * XR Chest One View (06/15/2024 6:31 AM EST) WORKSTATION ID [id number] RAD Anatomical Region Laterality Modality Chest N/A [...] who have questions please contact the health manager medicare marketing that requested your imaging first. ? Narrative [...] patients who have questions please contactthe health manager medicare marketing that requested your imaging first. Electronically signed by: Stuart Aponte MD, [facility]([phone]), at 06/15/2024 10:38 AM Bobby Loja MD [...] O RDERABLES [facility] [place] [address] * POC, GLUCOSE (06/15/2024 5:06 AM EST) Glucometer, POC 160 65 - 199 mg/dL 06/15/2024 5:06 AM EST [facility] Comment:Supplemental ranges: <140 mg/dL before meals <180 mg/dL all other times of the day. Blood CAPILLARY BLOOD / Unknown 06/15/2024 5:06 AM EST 06/15/2024 5:06 AM EST Bobby Loja MD POINT OF CARE TEST O RDERABLES Performing Organization Address [facility] Co de Phone Number [facility] [place] [address] * POC, GLUCOSE (06/15/2024 4:05 AM EST) Glucometer, POC 160 65 - 199 mg/dL 06/15/2024 4:06 AM EST [facility] Comment:Supplemental ranges: <140 mg/dL before meals <180 mg/dL all other times of the day. Blood CAPILLARY BLOOD / Unknown 06/15/2024 4:05 AM EST 06/15/2024 4:06 AM EST Bobby Loja MD POINT OF CARE TEST O NIKA Performing Organization Address [facility] Co de Phone Number [facility] [place] [address] * POC, GLUCOSE (06/15/2024 3:07 AM EST) Glucometer, POC 151 65 - 199 mg/dL 06/15/2024 3:07 AM EST [facility] Comment:Supplemental ranges: <140 mg/dL before meals <180 mg/dL all other times of the day. Blood CAPILLARY BLOOD / Unknown 06/15/2024 3:07 AM EST 06/15/2024 3:07 AM EST Bobby Loja MD POINT OF CARE TEST O NIKA Performing Organization Address [facility] Co de Phone Number [facility] [place] [address] * (ABNORMAL) Basic Metabolic Panel (06/15/2024 1:48 AM EST) Glucose 140 65 - 199 mg/dL 06/15/2024 2:38 AM EST [facility] Comment:Glucose Concentratio n >=200 mg/dL plus symptoms is consistent with Diabetes Mellitus. Blood Urea Nitrogen 21(H) 10 - 20 mg/dL 06/15/2024 2:38 AM [facility] Creatinine 1.27 0.80 - 1.50 mg/dL 06/15/2024 2:38 AM [facility] Sodium 140 135 - 145 mMol/L 06/15/2024 2:38 AM [facility] Potassium 4.4 3.5 - 5.0 mMol/L 06/15/2024 2:38 AM [facility] Chloride 108(H) 98 - 107 mMol/L 06/15/2024 2:38 AM [facility] Carbon Dioxide 23 22 - 31 mMol/L 06/15/2024 2:38 AM [facility] Anion Gap 9 5 - 15 mMol/L 06/15/2024 2:38 AM [facility] Calcium 8.3(L) 8.5 - 10.5 mg/dL 06/15/2024 2:38 AM [facility] Est Glomerular Filtration Rate - Male 62 mL/min/1. 73 m?? 06/15/2024 2:38 AM [facility] Comment: This patient's estimated GFR [...] CHEMISTRY ORDERABLES [facility] [place] [address] * (ABNORMAL) CBC (with Diff) (06/15/2024 1:48 AM EST) White Blood Cell 11.71(H) 4.00 - 9.50 x10(3)/mc L 06/15/2024 2:13 AM [facility] Red Blood Cell 4.14(L) 4.58 - 5.54 x10(6)/mc L 06/15/2024 2:13 AM [facility] Hemoglobin 12.5(L) 13.7 - 16.5 g/dL 06/15/2024 2:13 AM [facility] Hematocrit 38.4(L) 40.5 - 48.5 % 06/15/2024 2:13 AM [facility] Mean Cell Volume 92.8 82.9 - 93.1 fL 06/15/2024 2:13 AM [facility] Mean Cell Hemoglobin 30.2 27.5 - 32.1 pg 06/15/2024 2:13 AM [facility] Mean Cell Hemoglobin Concentration 32.6 32.0 - 35.7 g/dL 06/15/2024 2:13 AM [facility] Platelet 101(L) 145 - 357 x10(3)/mc L 06/15/2024 2:13 AM [facility] Mean Platelet Volume 10.0 7.6 - 12.9 fL 06/15/2024 2:13 AM [facility] RDW Standard Deviation 48.8(H) 36.0 - 45.0 fL 06/15/2024 2:13 AM [facility] RDW coefficient of variation 14.2(H) 11.4 - 13.8 % 06/15/2024 2:13 AM [facility] NRBC% auto 0.0 % 06/15/2024 2:13 AM [facility] NRBC Absolute <0.01 <0.01 x10(3)/mc L 06/15/2024 2:13 AM [facility] Neutrophil % 79.7 % 06/15/2024 2:13 AM [facility] Neutrophil Absolute (ANC) - Automated 9.34(H) 1.70 - 6.10 x10(3)/mc L 06/15/2024 2:13 AM [facility] Lymph % 8.0 % 06/15/2024 2:13 AM [facility] Lymph Absolute 0.94 0.90 - 3.20 x10(3)/mc L 06/15/2024 2:13 AM EST [facility] Monocyte % 11.4 % 06/15/2024 2:13 AM [facility] Monocyte Absolute 1.33(H) 0.30 - 0.90 x10(3)/mc L 06/15/2024 2:13 AM [facility] Eos % 0.2 % 06/15/2024 2:13 AM [facility] Eos Absolute <0.04 0.00 - 0.40 x10(3)/mc L 06/15/2024 2:13 AM [facility] Basophil % 0.2 % 06/15/2024 2:13 AM [facility] Baso Absolute <0.04 0.00 - 0.10 x10(3)/mc L 06/15/2024 2:13 AM EST [facility] Immature Gran % 0.5 % 2:13 AM [facility] Immature Gran Absolute 0.06(H) 0.00 - 0.04 x10(3)/mc L 06/15/2024 2:13 AM EST [facility] Blood VENOUS BLOOD SPECIMEN / Unknown Venipuncture / Unknown 06/15/2024 1:48 AM EST 06/15/2024 1:52 AM EST Bobby Loja MD HEMATOLOGY ORDERABLE S [facility] [place] [address] * (ABNORMAL) Troponin - Single (06/15/2024 1:48 [...] can be found in the [facility] Laboratory Test Catalog Troponin - [email or web address] Reference: Fourth [place] Definition of Myocardial Infarction. Journal of the [place] [employer] 2018;72:1172-5250 Blood VENOUS BLOOD SPECIMEN / Unknown Venipuncture / Unknown 06/15/2024 1:48 AM EST 06/15/2024 1:52 AM EST Bobby Loja MD CHEMISTRY ORDERABLES [facility] [place] [address] * (ABNORMAL) Blood Gas, Arterial POC (06/15/2024 1:46 AM EST) pH, Arterial 7.33(L) 7.35 - 7.45 06/15/2024 1:47 AM EST [facility] PCO2, Arterial 40 35 - 45 mmHg 06/15/2024 1:47 AM [facility] PO2, Arterial 131(H) 85 - 104 mmHg 06/15/2024 1:47 AM [facility] Bicarbonate, Arterial 20.7 20.0 - 26.0 mmol/L 06/15/2024 1:47 AM [facility] Base Excess, Arterial -5.2(L) -3.0 - 3.0 mmol/L 06/15/2024 1:47 AM [facility] Hemoglobin, Arterial 13.4(L) 13.7 - 16.5 g/dL 06/15/2024 1:47 AM [facility] Oxyhemoglobin, Arterial 97.9(H) 94.0 - 97.0 % 06/15/2024 1:47 AM [facility] Carboxyhemoglobin , Arterial 0.5 % 06/15/2024 1:47 AM [facility] Comment: Nonsmokers: 0.5-1.5% COHB ?? Smokers: Variable ??but usually less than 10% ?? Toxic: 20-30% COHB ?? Lethal: Greater than 60% COHB Methemoglobin, Arterial 0.3 <=1.5 % 06/15/2024 1:47 AM [facility] Sodium, Arterial 139 135 - 145 mmol/L 06/15/2024 1:47 AM [facility] Potassium, Arterial 4.2 3.5 - 5.0 mmol/L 06/15/2024 1:47 AM [facility] Chloride, Arterial 107 98 - 107 mmol/L 06/15/2024 1:47 AM [facility] Lactate, Arterial 1.8 0.5 - 2.2 mmol/L 06/15/2024 1:47 AM [facility] Fraction of Inspired Oxygen 40 % 06/15/2024 1:47 AM [facility] PF Ratio 328 Ratio 06/15/2024 1:47 AM [facility] Comment:PF ratio calculated using the non-temperature corrected pO2 result. IONIZED CALCIUM, ARTERIAL 1.17 1.15 - 1.33 mmol/L 06/15/2024 1:47 AM EST [facility] Glucose, Arterial 127 65 - 199 mg/dL 06/15/2024 1:47 AM EST [facility] Comment:Glucose Concentratio n >=200 mg/dL plus symptoms is consistent with Diabetes Mellitus. Blood ARTERIAL BLOOD / Unknown 06/15/2024 1:46 AM EST 06/15/2024 1:47 AM EST Bobby Loja MD POINT OF CARE TEST O RDERAPIETER Performing Organization Address [facility] Co de Phone Number [facility] [place] [address] * POC, GLUCOSE (06/15/2024 1:05 AM EST) Glucometer, POC 116 65 - 199 mg/dL 06/15/2024 1:05 AM EST [facility] Comment:Supplemental ranges: <140 mg/dL before meals <180 mg/dL all other times of the day. Blood CAPILLARY BLOOD / Unknown 06/15/2024 1:05 AM EST 06/15/2024 1:05 AM EST Bobby Loja MD POINT OF CARE TEST O RDERAPIETER Performing Organization Address [facility] Co de Phone Number [facility] [place] [address] * POC, GLUCOSE (06/15/2024 12:16 AM EST) [...] O RDERAPIETER [facility] [place] [address] * Potassium (06/14/2024 11:28 PM EST) Potassium 4.1 3.5 - 5.0 mMol/L 06/14/2024 11:54 PM EST [facility] Blood VENOUS BLOOD SPECIMEN / Unknown Venipuncture / Unknown 06/14/2024 11:28 PM EST 06/14/2024 11:34 PM EST Bobby Loja MD CHEMISTRY ORDERABLES Performing Organization Address [facility] Co de Phone Number [facility] [place] [address] * POC, GLUCOSE (06/14/2024 10:58 PM EST) [...] TEST O RDERABLES Performing Organization Address [facility] Co de Phone Number [facility] [place] [address] * POC, GLUCOSE (06/14/2024 9:55 PM EST) [...] TEST O RDERABLES Performing Organization Address City/State/[facility] Co de Phone Number [facility] [place] [address] * POC, GLUCOSE (06/14/2024 8:54 PM EST) Glucometer, POC 151 65 - 199 mg/dL 06/14/2024 8:54 PM EST [facility] Comment:Supplemental ranges: <140 mg/dL before meals <180 mg/dL all other times of the day. Blood CAPILLARY BLOOD / Unknown 06/14/2024 8:54 PM EST 06/14/2024 8:54 PM EST Bobby Loja MD POINT OF CARE TEST O NIKA Performing Organization Address [facility] Co de Phone Number [facility] [place] [address] * POC, GLUCOSE (06/14/2024 7:51 PM EST) Glucometer, POC 169 65 - 199 mg/dL 06/14/2024 7:52 PM EST [facility] Comment:Supplemental ranges: <140 mg/dL before meals <180 mg/dL all other times of the day. Blood CAPILLARY BLOOD / Unknown 06/14/2024 7:51 PM EST 06/14/2024 7:52 PM EST Bobby Loja MD POINT OF CARE TEST O RDBECKIE Performing Organization Address City/[facility] Co de Phone Number [facility] [place] [address] * POC, GLUCOSE (06/14/2024 6:49 PM EST) [...] Organization Address City/[facility]/ZIP Co de Phone Number [facility] [place] [address] * (ABNORMAL) Hemoglobin (06/14/2024 6:19 PM EST) Hemoglobin 13.1(L) 13.7 - 16.5 g/dL 06/14/2024 7:08 PM EST [facility] Blood VENOUS BLOOD SPECIMEN / Unknown Venipuncture / Unknown 06/14/2024 6:19 PM EST 06/14/2024 6:28 PM EST Bobby Loja MD HEMATOLOGY ORDERABLE S Performing Organization Address [facility] Co de Phone Number [facility] [place] [address] * Potassium (06/14/2024 6:19 PM EST) Potassium 3.9 3.5 - 5.0 mMol/L 06/14/2024 6:52 PM EST [facility] Blood VENOUS BLOOD SPECIMEN / Unknown Venipuncture / Unknown 06/14/2024 6:19 PM EST 06/14/2024 6:28 PM EST Bobby Loja MD CHEMISTRY ORDERABLES Performing Organization Address City/[facility]/ZIP Co de Phone Number [facility] [place] [address] * (ABNORMAL) POC, GLUCOSE (06/14/2024 6:03 PM [...] O RDERABLES [facility] [place] [address] * (ABNORMAL) Blood Gas, Arterial POC (06/14/2024 4:51 PM EST) pH, Arterial 7.32(L) 7.35 - 7.45 06/14/2024 4:52 PM EST [facility] PCO2, Arterial 46(H) 35 - 45 mmHg 06/14/2024 4:52 PM [facility] PO2, Arterial 85 85 - 104 mmHg 06/14/2024 4:52 PM [facility] Bicarbonate, Arterial 23.1 20.0 - 26.0 mmol/L 06/14/2024 4:52 PM [facility] Base Excess, Arterial -3.1(L) -3.0 - 3.0 mmol/L 06/14/2024 4:52 PM [facility] Hemoglobin, Arterial 14.3 13.7 - 16.5 g/dL 06/14/2024 4:52 PM [facility] Oxyhemoglobin, Arterial 94.7 94.0 - 97.0 % 06/14/2024 4:52 PM [facility] Carboxyhemoglobin , Arterial 0.6 % 06/14/2024 4:52 PM [facility] Comment: Nonsmokers: 0.5-1.5% COHB ?? Smokers: Variable ??but usually less than 10% ?? Toxic: 20-30% COHB ?? Lethal: Greater than 60% COHB Methemoglobin, Arterial 0.0 <=1.5 % 06/14/2024 4:52 PM EST [facility] Sodium, Arterial 138 135 - 145 mmol/L 06/14/2024 4:52 PM [facility] Potassium, Arterial 4.1 3.5 - 5.0 mmol/L 06/14/2024 4:52 PM [facility] Chloride, Arterial 106 98 - 107 mmol/L 06/14/2024 4:52 PM EST [facility] Lactate, Arterial 1.3 0.5 - 2.2 mmol/L 06/14/2024 4:52 PM [facility] Fraction of Inspired Oxygen 40 % 06/14/2024 4:52 PM [facility] PF Ratio 213 Ratio 06/14/2024 4:52 PM [facility] Comment:PF ratio calculated using the non-temperature corrected pO2 result. IONIZED CALCIUM, ARTERIAL 1.16 1.15 - 1.33 mmol/L 06/14/2024 4:52 PM [facility] Glucose, Arterial 192 65 - 199 mg/dL 06/14/2024 4:52 PM [facility] Comment:Glucose Concentratio n >=200 mg/dL plus symptoms is consistent with Diabetes Mellitus. Blood ARTERIAL BLOOD / Unknown 06/14/2024 4:51 PM EST 06/14/2024 4:52 PM EST Bobby Loja MD POINT [place] [address] * POC, GLUCOSE (06/14/2024 4:00 PM EST) Glucometer, POC 184 65 - 199 mg/dL 06/14/2024 4:01 PM EST [facility] Comment:Supplemental ranges: <140 mg/dL before meals <180 mg/dL all other times of the day. Blood CAPILLARY BLOOD / Unknown 06/14/2024 4:00 PM EST 06/14/2024 4:01 PM EST Bobby Loja MD POINT OF CARE TEST O RALPHERAPIETER [facility] [place] [address] * XR Chest One View (06/14/2024 3:05 PM EST) WORKSTATION ID [id number] RAD Anatomical Region Laterality Modality Chest N/A [...] who have questions please contact the health manager medicare marketing that requested your imaging first. ? Electronically signed by: Stuart Aponte MD, [facility] ??([phone]), at 06/14/2024 4:07 PM Narrative 06/14/2024 4:07 [...] patients who have questions please contactthe health manager medicare marketing that requested your imaging first. Electronically signed by: Stuart Aponte MD, [facility]([phone]), at 06/14/2024 4:07 PM Bobby Loja MD IMG DX ORDERABLES * (ABNORMAL) Blood Gas, Arterial POC (06/14/2024 2:52 PM EST) pH, Arterial 7.28(LLL) 7.35 - 7.45 06/14/2024 2:53 PM [facility] PCO2, Arterial 50(H) 35 - 45 mmHg 06/14/2024 2:53 PM [facility] PO2, Arterial 510(H) 85 - 104 mmHg 06/14/2024 2:53 PM [facility] Bicarbonate, Arterial 22.8 20.0 - 26.0 mmol/L 06/14/2024 2:53 PM [facility] Base Excess, Arterial -4.0(L) -3.0 - 3.0 mmol/L 06/14/2024 2:53 PM [facility] Hemoglobin, Arterial 13.8 13.7 - 16.5 g/dL 06/14/2024 2:53 PM [facility] Oxyhemoglobin, Arterial 99.3(H) 94.0 - 97.0 % 06/14/2024 2:53 PM [facility] Carboxyhemoglobin , Arterial 0.6 % 06/14/2024 2:53 PM [facility] Comment: Nonsmokers: 0.5-1.5% COHB ?? Smokers: Variable ??but usually less than 10% ?? Toxic: 20-30% COHB ?? Lethal: Greater than 60% COHB Methemoglobin, Arterial 0.1 <=1.5 % 06/14/2024 2:53 PM [facility] Sodium, Arterial 138 135 - 145 mmol/L 06/14/2024 2:53 PM [facility] Potassium, Arterial 4.2 3.5 - 5.0 mmol/L 06/14/2024 2:53 PM [facility] Chloride, Arterial 106 98 - 107 mmol/L 06/14/2024 2:53 PM [facility] Lactate, Arterial 1.1 0.5 - 2.2 mmol/L 06/14/2024 2:53 PM [facility] Fraction of Inspired Oxygen 100 % 06/14/2024 2:53 PM [facility] PF Ratio 510 Ratio 06/14/2024 2:53 PM [facility] Comment:PF ratio calculated using the non-temperature corrected pO2 result. IONIZED CALCIUM, ARTERIAL 1.15 1.15 - 1.33 mmol/L 06/14/2024 2:53 PM [facility] Glucose, Arterial 169 65 - 199 mg/dL 06/14/2024 2:53 PM [facility] Comment:Glucose Concentratio n >=200 mg/dL plus symptoms is consistent with Diabetes Mellitus. Blood ARTERIAL BLOOD / Unknown 06/14/2024 2:52 PM EST 06/14/2024 2:53 PM EST Bobby Loja MD POINT OF CARE TEST O RDERABLES [facility] [place] [address] * EKG 12 Lead (06/14/2024 2:46 PM EST) Ventricular rate 80 BPM MUSE SYSTEM Atrial Rate 80 BPM MUSE SYSTEM P-R Interval 120 ms MUSE SYSTEM QRS Duration 108 ms MUSE SYSTEM Q-T Interval 454 ms MUSE SYSTEM QTC Calculated (Bezet) 523 ms MUSE SYSTEM Calculated P [place] 70 degrees MUSE SYSTEM Calculated R [place] 56 degrees MUSE SYSTEM Calculated T [place] 50 degrees MUSE SYSTEM INTERPRETATION AV dual-paced rhythm Abnormal ECG When compared with ECG of 03-JUN-2024 01:45, Vent. rate has increased BY ??17 BPM Confirmed by MD Marisol, Shaheen ([id number]) on 06/15/2024 1:57:23 PM MUSE SYSTEM 06/14/2024 2:46 PM EST 06/15/2024 1:57 PM EST Bobby Loja MD ECG ORDERABLES MUSE SYSTEM * Prepare RBC (06/14/2024 2:27 PM EST) Status Information Returned [facility] Product Identification RBC [facility] Unit [facility] [id number] [facility] Product Code P6508V03 [facility] Unit Blood Type OPOS [facility] Specimen Expiration Date [facility] Volulme 350 [facility] Issue Date / Time [facility] Status Information Returned [facility] Product Identification RBC [facility] Unit Number [id number] [facility] Product [facility] D3381T53 [facility] Unit Blood Type OPOS [facility] Specimen Expiration Date [facility] Volulme 350 [facility] Issue Date / Time [facility] Blood 06/14/2024 6:2 5 AM EST Haja Byrnes MD BLOOD BANK PRODUCT O RDERABLES [facility] [place] [address] * (ABNORMAL) Cooximetry, POC (06/14/2024 1:52 PM EST) pO2, Coox 58 mmHg 06/14/2024 1:55 PM EST [facility] Hemoglobin, Coox 12.6(L) 13.7 - 16.5 g/dL 06/14/2024 1:55 PM EST [facility] Oxyhemoglobin, Coox 85.5 % 06/14/2024 1:55 PM EST [facility] Carboxyhemoglo bin, Coox 0.3 % 06/14/2024 1:55 PM EST [facility] Comment: Nonsmokers: 0.5-1.5% COHB ?? Smokers: Variable ??but usually less than 10% ?? Toxic: 20-30% COHB ?? Lethal: Greater than 60% COHB Methemoglobin, Coox 0.6 <=1.5 % 06/14/2024 1:55 PM EST [facility] Blood (Mixed Venous) 06/14/2024 1:52 PM EST 06/14/2024 1:55 PM EST Haja Byrnes MD POINT OF CARE TEST O RDERABLES [facility] [place] [address] * (ABNORMAL) Blood Gas, Arterial POC (06/14/2024 12:47 PM EST) pH, Arterial 7.33(L) 7.35 - 7.45 06/14/2024 12:48 PM EST [facility] PCO2, Arterial 46(H) 35 - 45 mmHg 06/14/2024 12:48 PM [facility] PO2, Arterial 358(H) 85 - 104 mmHg 06/14/2024 12:48 PM [facility] Bicarbonate, Arterial 23.8 20.0 - 26.0 mmol/L 06/14/2024 12:48 PM [facility] Base Excess, Arterial -2.1 -3.0 - 3.0 mmol/L 06/14/2024 12:48 PM [facility] Hemoglobin, Arterial 11.7(L) 13.7 - 16.5 g/dL 06/14/2024 12:48 PM [facility] Oxyhemoglobin, Arterial 98.7(H) 94.0 - 97.0 % 06/14/2024 12:48 PM [facility] Carboxyhemoglobin , Arterial 0.3 % 06/14/2024 12:48 PM [facility] Comment: Nonsmokers: 0.5-1.5% COHB ?? Smokers: Variable ??but usually less than 10% ?? Toxic: 20-30% COHB ?? Lethal: Greater than 60% COHB Methemoglobin, Arterial 0.5 <=1.5 % 06/14/2024 12:48 PM [facility] Sodium, Arterial 135 135 - 145 mmol/L 06/14/2024 12:48 PM [facility] Potassium, Arterial 5.0 3.5 - 5.0 mmol/L 06/14/2024 12:48 PM [facility] Chloride, Arterial 106 98 - 107 mmol/L 06/14/2024 12:48 PM [facility] Lactate, Arterial 1.4 0.5 - 2.2 mmol/L 06/14/2024 12:48 PM [facility] IONIZED CALCIUM, ARTERIAL 1.09(L) 1.15 - 1.33 mmol/L 06/14/2024 12:48 PM [facility] Glucose, Arterial 157 65 - 199 mg/dL 06/14/2024 12:48 PM [facility] Comment:Glucose Concentratio n >=200 mg/dL plus symptoms is consistent with Diabetes Mellitus. Blood ARTERIAL BLOOD / Unknown 06/14/2024 12:47 PM EST 06/14/2024 12:48 PM EST Haja Byrnes MD POINT OF CARE TEST O RDERABLES Performing Organization Address City/[facility]/ZIP Co de Phone Number [facility] [place] [address] * (ABNORMAL) Cooximetry, POC (06/14/2024 12:42 PM [...] Organization Address City/[facility]/ZIP Co de Phone Number [facility] [place] [address] * (ABNORMAL) Platelet count (06/14/2024 12:30 PM EST) Platelet 73(L) 145 - 357 x10(3)/mcL 06/14/2024 12:54 PM EST [facility] Blood ARTERIAL BLOOD / Unknown 06/14/2024 12:30 PM EST Comment:Pre-op diagnosis: CAD Bobby Loja MD HEMATOLOGY ORDERABLE S Performing Organization Address [facility]/State/ZIP Co de Phone Number [facility] [place] [address] * (ABNORMAL) Hemoglobin and Hematocrit, blood (06/14/2024 [...] MD HEMATOLOGY ORDERABLE S Performing Organization Address [facility] Co de Phone Number [facility] [place] [address] * APTT (06/14/2024 12:30 PM EST) Partial [...] ORDERABLE S [facility] [place] [address] * (ABNORMAL) Prothrombin Time (06/14/2024 12:30 PM EST) Pathologist [facility] Prothrombin Time 16.8(H) 9.4 - 12.5 sec [...] MD HEMATOLOGY ORDERABLE S Performing Organization Address [facility] Co de Phone Number [facility] [place] [address] * Fibrinogen (06/14/2024 12:30 PM EST) [facility] Fibrinogen 211 200 - 393 mg/dL 06/14/2024 12:57 PM EST [facility] Comment: A fibrinogen level >100 mg/dL is adequate for hemostasis in most patients without underlying bleeding disorders. Blood ARTERIAL BLOOD / Unknown 06/14/2024 12:30 PM EST 06/14/2024 12:42 PM EST Comment:Pre-op diagnosis: CAD Bobby Loja MD HEMATOLOGY ORDERABLE S [facility] [place] [address] * (ABNORMAL) Blood Gas, Arterial POC (06/14/2024 12:15 PM EST) pH, Arterial 7.38 7.35 - 7.45 06/14/2024 12:16 PM [facility] PCO2, Arterial 40 35 - 45 mmHg 06/14/2024 12:16 PM [facility] Bicarbonate, Arterial 22.9 20.0 - 26.0 mmol/L 06/14/2024 12:16 PM [facility] Base Excess, Arterial -2.3 -3.0 - 3.0 mmol/L 06/14/2024 12:16 PM [facility] Hemoglobin, Arterial 11.4(L) 13.7 - 16.5 g/dL 06/14/2024 12:16 PM [facility] Oxyhemoglobin, Arterial 98.8(H) 94.0 - 97.0 % 06/14/2024 12:16 PM [facility] Carboxyhemoglobin , Arterial 0.3 % 06/14/2024 12:16 PM [facility] Comment: Nonsmokers: 0.5-1.5% COHB ?? Smokers: Variable ??but usually less than 10% ?? Toxic: 20-30% COHB ?? Lethal: Greater than 60% COHB Methemoglobin, Arterial 0.6 <=1.5 % 06/14/2024 12:16 PM [facility] Sodium, Arterial 134(L) 135 - 145 mmol/L 06/14/2024 12:16 PM [facility] Potassium, Arterial 5.4(H) 3.5 - 5.0 mmol/L 06/14/2024 12:16 PM [facility] Chloride, Arterial 105 98 - 107 mmol/L 06/14/2024 12:16 PM [facility] Lactate, Arterial 1.3 0.5 - 2.2 mmol/L 06/14/2024 12:16 PM [facility] IONIZED CALCIUM, ARTERIAL 1.08(L) 1.15 - 1.33 mmol/L 06/14/2024 12:16 PM [facility] Glucose, Arterial 161 65 - 199 mg/dL 06/14/2024 12:16 PM EST [facility] Comment:Glucose Concentratio n >=200 mg/dL plus symptoms is consistent with Diabetes Mellitus. Blood ARTERIAL BLOOD / Unknown 06/14/2024 12:15 PM EST 06/14/2024 12:16 PM EST Haja Byrnes MD POINT OF CARE TEST O RDERABLES [facility] [place] [address] * (ABNORMAL) Blood Gas, Arterial POC (06/14/2024 11:51 AM EST) pH, Arterial 7.40 7.35 - 7.45 06/14/2024 11:52 AM [facility] PCO2, Arterial 41 35 - 45 mmHg 06/14/2024 11:52 AM [facility] PO2, Arterial 332(H) 85 - 104 mmHg 06/14/2024 11:52 AM [facility] Bicarbonate, Arterial 24.7 20.0 - 26.0 mmol/L 06/14/2024 11:52 AM [facility] Base Excess, Arterial -0.1 -3.0 - 3.0 mmol/L 06/14/2024 11:52 AM [facility] Hemoglobin, Arterial 11.1(L) 13.7 - 16.5 g/dL 06/14/2024 11:52 AM [facility] Oxyhemoglobin, Arterial 98.7(H) 94.0 - 97.0 % 06/14/2024 11:52 AM [facility] Carboxyhemoglobin , Arterial 0.3 % 06/14/2024 11:52 AM [facility] Comment: Nonsmokers: 0.5-1.5% COHB ?? Smokers: Variable ??but usually less than 10% ?? Toxic: 20-30% COHB ?? Lethal: Greater than 60% COHB Methemoglobin, Arterial 0.4 <=1.5 % 06/14/2024 11:52 AM [facility] Sodium, Arterial 135 135 - 145 mmol/L 06/14/2024 11:52 AM [facility] Potassium, Arterial 5.7(H) 3.5 - 5.0 mmol/L 06/14/2024 11:52 AM [facility] Chloride, Arterial 105 98 - 107 mmol/L 06/14/2024 11:52 AM [facility] Lactate, Arterial 1.2 0.5 - 2.2 mmol/L 06/14/2024 11:52 AM [facility] IONIZED CALCIUM, ARTERIAL 1.10(L) 1.15 - 1.33 mmol/L 06/14/2024 11:52 AM [facility] Glucose, Arterial 148 65 - 199 mg/dL 06/14/2024 11:52 AM [facility] Comment:Glucose Concentratio n >=200 mg/dL plus symptoms is consistent with Diabetes Mellitus. Blood ARTERIAL BLOOD / Unknown 06/14/2024 11:51 AM EST 06/14/2024 11:52 AM EST Haja Byrnes MD POINT OF CARE TEST O RDERABLES [facility] [place] [address] * (ABNORMAL) Blood Gas, Arterial POC (06/14/2024 11:27 AM EST) pH, Arterial 7.38 7.35 - 7.45 06/14/2024 11:28 AM [facility] PCO2, Arterial 37 35 - 45 mmHg 06/14/2024 11:28 AM [facility] PO2, Arterial 348(H) 85 - 104 mmHg 06/14/2024 11:28 AM [facility] Bicarbonate, Arterial 21.1 20.0 - 26.0 mmol/L 06/14/2024 11:28 AM [facility] Base Excess, Arterial -4.1(L) -3.0 - 3.0 mmol/L 06/14/2024 11:28 AM [facility] Hemoglobin, Arterial 11.0(L) 13.7 - 16.5 g/dL 06/14/2024 11:28 AM [facility] Oxyhemoglobin, Arterial 98.7(H) 94.0 - 97.0 % 06/14/2024 11:28 AM [facility] Carboxyhemoglobin , Arterial 0.3 % 06/14/2024 11:28 AM [facility] Comment: Nonsmokers: 0.5-1.5% COHB ?? Smokers: Variable ??but usually less than 10% ?? Toxic: 20-30% COHB ?? Lethal: Greater than 60% COHB Methemoglobin, Arterial 0.4 <=1.5 % 06/14/2024 11:28 AM [facility] Sodium, Arterial 132(L) 135 - 145 mmol/L 06/14/2024 11:28 AM [facility] Potassium, Arterial 5.8(H) 3.5 - 5.0 mmol/L 06/14/2024 11:28 AM [facility] Chloride, Arterial 105 98 - 107 mmol/L 06/14/2024 11:28 AM [facility] Lactate, Arterial 1.1 0.5 - 2.2 mmol/L 06/14/2024 11:28 AM [facility] IONIZED CALCIUM, ARTERIAL 1.03(L) 1.15 - 1.33 mmol/L 06/14/2024 11:28 AM [facility] Glucose, Arterial 147 65 - 199 mg/dL 06/14/2024 11:28 AM [facility] Comment:Glucose Concentratio n >=200 mg/dL plus symptoms is consistent with Diabetes Mellitus. Blood ARTERIAL BLOOD / Unknown 06/14/2024 11:27 AM EST 06/14/2024 11:28 AM EST Haja Byrnes MD POINT OF CARE TEST O RDERABLES [facility] [place] [address] * (ABNORMAL) Scan, Peripheral Blood (06/14/2024 11:23 AM EST) RBC Morphology Abnormal 06/14/2024 11:59 AM EST [facility] Platelet Estimate Decreased(A) Normal 06/14/2024 11:59 AM EST [facility] Aretha cells 1-5 /HPF 06/14/2024 11:59 AM EST [facility] Blood ARTERIAL BLOOD / Unknown 06/14/2024 11:23 AM EST 06/14/2024 11:27 AM EST Bobby Loja MD HEMATOLOGY ORDERABLE S Performing Organization Address [facility]/ZIP Co de Phone Number [facility] [place] [address] * (ABNORMAL) Platelet count (06/14/2024 11:23 AM EST) Platelet 86(L) 145 - 357 x10(3)/mcL 06/14/2024 11:59 AM EST [facility] Blood ARTERIAL BLOOD / Unknown 06/14/2024 11:23 AM EST Comment:Pre-op diagnosis: CAD Bobby Loja MD HEMATOLOGY ORDERABLE S [facility] [place] [address] * (ABNORMAL) Hemoglobin and Hematocrit, blood (06/14/2024 [...] ORDERABLE S [facility] [place] [address] * (ABNORMAL) Blood Gas, Arterial POC (06/14/2024 10:58 AM EST) pH, Arterial 7.38 7.35 - 7.45 06/14/2024 10:59 AM [facility] PCO2, Arterial 43 35 - 45 mmHg 06/14/2024 10:59 AM [facility] PO2, Arterial 401(H) 85 - 104 mmHg 06/14/2024 10:59 AM [facility] Bicarbonate, Arterial 24.8 20.0 - 26.0 mmol/L 06/14/2024 10:59 AM [facility] Base Excess, Arterial -0.5 -3.0 - 3.0 mmol/L 06/14/2024 10:59 AM [facility] Hemoglobin, Arterial 11.9(L) 13.7 - 16.5 g/dL 06/14/2024 10:59 AM [facility] Oxyhemoglobin, Arterial 99.0(H) 94.0 - 97.0 % 06/14/2024 10:59 AM [facility] Carboxyhemoglobin , Arterial 0.3 % 06/14/2024 10:59 AM [facility] Comment: Nonsmokers: 0.5-1.5% COHB ?? Smokers: Variable ??but usually less than 10% ?? Toxic: 20-30% COHB ?? Lethal: Greater than 60% COHB Methemoglobin, Arterial 0.3 <=1.5 % 06/14/2024 10:59 AM [facility] Sodium, Arterial 128(L) 135 - 145 mmol/L 06/14/2024 10:59 AM [facility] Potassium, Arterial 6.6(HHH) 3.5 - 5.0 mmol/L 06/14/2024 10:59 AM [facility] Chloride, Arterial 99 98 - 107 mmol/L 06/14/2024 10:59 AM [facility] Lactate, Arterial 1.3 0.5 - 2.2 mmol/L 06/14/2024 10:59 AM [facility] IONIZED CALCIUM, ARTERIAL 1.00(L) 1.15 - 1.33 mmol/L 06/14/2024 10:59 AM [facility] Glucose, Arterial 155 65 - 199 mg/dL 06/14/2024 10:59 AM [facility] Comment:Glucose Concentratio n >=200 mg/dL plus symptoms is consistent with Diabetes Mellitus. Blood ARTERIAL BLOOD / Unknown 06/14/2024 10:58 AM EST 06/14/2024 10:59 AM EST Haja Byrnes MD POINT OF CARE TEST O RDERABLES [facility] [place] [address] * (ABNORMAL) Blood Gas, Arterial POC (06/14/2024 10:26 AM EST) pH, Arterial 7.29(LLL) 7.35 - 7.45 06/14/2024 10:27 AM EST [facility] PCO2, Arterial 43 35 - 45 mmHg 06/14/2024 10:27 AM [facility] PO2, Arterial 369(H) 85 - 104 mmHg 06/14/2024 10:27 AM [facility] Bicarbonate, Arterial 19.9(L) 20.0 - 26.0 mmol/L 06/14/2024 10:27 AM [facility] Base Excess, Arterial -6.7(L) -3.0 - 3.0 mmol/L 06/14/2024 10:27 AM [facility] Hemoglobin, Arterial 12.6(L) 13.7 - 16.5 g/dL 06/14/2024 10:27 AM [facility] Oxyhemoglobin, Arterial 99.1(H) 94.0 - 97.0 % 06/14/2024 10:27 AM [facility] Carboxyhemoglobin , Arterial 0.1 % 06/14/2024 10:27 AM [facility] Comment: Nonsmokers: 0.5-1.5% COHB ?? Smokers: Variable ??but usually less than 10% ?? Toxic: 20-30% COHB ?? Lethal: Greater than 60% COHB Methemoglobin, Arterial 0.4 <=1.5 % 06/14/2024 10:27 AM [facility] Sodium, Arterial 129(L) 135 - 145 mmol/L 06/14/2024 10:27 AM [facility] Potassium, Arterial 5.0 3.5 - 5.0 mmol/L 06/14/2024 10:27 AM [facility] Chloride, Arterial 99 98 - 107 mmol/L 06/14/2024 10:27 AM [facility] Lactate, Arterial 0.9 0.5 - 2.2 mmol/L 06/14/2024 10:27 AM [facility] IONIZED CALCIUM, ARTERIAL 1.05(L) 1.15 - 1.33 mmol/L 06/14/2024 10:27 AM [facility] Glucose, Arterial 149 65 - 199 mg/dL 06/14/2024 10:27 AM [facility] Comment:Glucose Concentratio n >=200 mg/dL plus symptoms is consistent with Diabetes Mellitus. Blood ARTERIAL BLOOD / Unknown 06/14/2024 10:26 AM EST 06/14/2024 10:27 AM EST Haja Byrnes MD POINT OF CARE TEST O RDERABLES [facility] [place] [address] * (ABNORMAL) Blood Gas, Arterial POC (06/14/2024 10:25 AM EST) pH, Arterial 7.26(LLL) 7.35 - 7.45 06/14/2024 10:26 AM [facility] PCO2, Arterial 48(H) 35 - 45 mmHg 06/14/2024 10:26 AM [facility] Bicarbonate, Arterial 21.2 20.0 - 26.0 mmol/L 06/14/2024 10:26 AM [facility] Base Excess, Arterial -5.8(L) -3.0 - 3.0 mmol/L 06/14/2024 10:26 AM [facility] Hemoglobin, Arterial 12.5(L) 13.7 - 16.5 g/dL 06/14/2024 10:26 AM [facility] Oxyhemoglobin, Arterial 82.3(L) 94.0 - 97.0 % 06/14/2024 10:26 AM [facility] Carboxyhemoglobin , Arterial 0.5 % 06/14/2024 10:26 AM [facility] Comment: Nonsmokers: 0.5-1.5% COHB ?? Smokers: Variable ??but usually less than 10% ?? Toxic: 20-30% COHB ?? Lethal: Greater than 60% COHB Methemoglobin, Arterial 0.5 <=1.5 % 06/14/2024 10:26 AM [facility] Sodium, Arterial 131(L) 135 - 145 mmol/L 06/14/2024 10:26 AM [facility] Potassium, Arterial 4.6 3.5 - 5.0 mmol/L 06/14/2024 10:26 AM [facility] Chloride, Arterial 103 98 - 107 mmol/L 06/14/2024 10:26 AM [facility] Lactate, Arterial 0.8 0.5 - 2.2 mmol/L 06/14/2024 10:26 AM EST [facility] IONIZED CALCIUM, ARTERIAL 0.91(LLL) 1.15 - 1.33 mmol/L 06/14/2024 10:26 AM EST [facility] Glucose, Arterial 148 65 - 199 mg/dL 06/14/2024 10:26 AM EST [facility] Comment:Glucose Concentratio n >=200 mg/dL plus symptoms is consistent with Diabetes Mellitus. Blood ARTERIAL BLOOD / Unknown 06/14/2024 10:25 AM EST 06/14/2024 10:26 AM EST Haja Byrnes MD POINT OF CARE TEST O RDERABLES [facility] [place] [address] * Surgical Pathology (06/14/2024 9:53 AM EST) Case Report Surgical Pathology Report ? Case: [id number] ? Authorizing Provider: ??Bobby Loja MD ? Collected: ? 06/14/2024 0953 ? Ordering Location: ? Main Operating Room [facility] ?? Received: ?06/14/2024 1413 ? [facility] ? Pathologist: ? Sandra Salas MD ? Specimens: ?? A) - Soft Tissue Mass, mediastinal mass ? B) - Heart, Atrial Appendage, Left ? 06/18/2024 10:18 AM [facility] Final Diagnosis A. Soft Tissue Mass, Mediastinal Mass, Excision: - Atrophic thymic tissue B. Heart, Atrial Appendage, Left, Excision: - Mild myocyte hypertrophy 06/18/2024 10:18 AM [facility] Clinical Information A. Soft Tissue Mass, mediastinal mass Soft tissue mass Mediastinal mass B. Heart, Atrial Appendage, Left, *Other - as specified in Clinical Information MARIALUISA 06/18/2024 10:18 AM [facility] Gross Description A. Soft Tissue Mass, mediastinal mass. A - Labeled/Fixative : Mediastinal mass, fresh. Quantity/Size: Single, 7.2 x 5.3 x 1.2 cm. Tissue Description: Unoriented, intact portion of soft, rodriguez-yellow, lobulated tissue. The cut surface is homogenously pale-rodriguez, yellow and lobulated. No lesions or nodules are identified. Inking: External surface inked black Sections/Process ing: Fruit Thinner sections in 4 cassettes labeled A1-A4. cmk B. Heart, Atrial Appendage, Left, . B - Labeled/Fixative : Heart, atrial appendage, left, fresh. Quantity/Size: Single, 3.3 x 1.5 x 0.8 cm. Tissue Description: Portion of heart tissue consisting of rodrgiuez-white, semitranslucent, smooth endocardium with rodriguez-brown muscular myocardium and thin translucent epicardium with adherent adipose tissue. No areas of discoloration identified. Sections/Process ing: Fruit Thinner sections in 1 cassette labeled B1. cmk 06/18/2024 10:18 AM EST [facility] Result Note Routine 06/18/2024 10:18 AM [facility] Tissue SOFT TISSUE MASS / Unknown 06/14/2024 9:53 AM EST 06/14/2024 2:13 PM EST Comment:Mediastinal mass Tissue specimen (specimen) LEFT ATRIAL APPENDAGE ABSENT / Unknown 06/14/2024 10:54 AM EST 06/14/2024 2:13 PM EST Comment:MARIALUISA Bobby Loja MD PATHOLOGY/CYTOLOGY O RDERABLES [facility] [place] [address] * Cooximetry, POC (06/14/2024 9:00 AM EST) pO2, Coox 57 mmHg 06/14/2024 9:04 AM EST [facility] PO2 Corrected, COOX 50 mmHg 06/14/2024 9:04 AM EST [facility] Hemoglobin, Coox 14.3 13.7 - 16.5 g/dL 06/14/2024 9:04 AM EST [facility] Oxyhemoglobin, Coox 86.2 % 06/14/2024 9:04 AM EST [facility] Carboxyhemoglobi n, Coox 0.3 % 06/14/2024 9:04 AM [facility] Comment: Nonsmokers: 0.5-1.5% COHB ?? Smokers: Variable ??but usually less than 10% ?? Toxic: 20-30% COHB ?? Lethal: Greater than 60% COHB Methemoglobin, Coox 0.3 <=1.5 % 06/14/2024 9:04 AM [facility] Temperature Coox 35.2 C 06/14/20 24 9:04 AM [facility] Blood (Mixed Venous) 06/14/2024 9:00 AM EST 06/14/2024 9:04 AM EST Haja Byrnes MD POINT OF CARE TEST O RDERABLES [facility] [place] [address] * (ABNORMAL) Blood Gas, Arterial POC (06/14/2024 8:39 AM EST) pH, Arterial 7.37 7.35 - 7.45 06/14/2024 8:40 AM [facility] PCO2, Arterial 42 35 - 45 mmHg 06/14/2024 8:40 AM [facility] PO2, Arterial 341(H) 85 - 104 mmHg 06/14/2024 8:40 AM [facility] Bicarbonate, Arterial 23.7 20.0 - 26.0 mmol/L 06/14/2024 8:40 AM [facility] Base Excess, Arterial -1.6 -3.0 - 3.0 mmol/L 06/14/2024 8:40 AM [facility] Hemoglobin, Arterial 15.2 13.7 - 16.5 g/dL 06/14/2024 8:40 AM [facility] Oxyhemoglobin, Arterial 99.2(H) 94.0 - 97.0 % 06/14/2024 8:40 AM [facility] Carboxyhemoglobin , Arterial 0.1 % 06/14/2024 8:40 AM [facility] Comment: Nonsmokers: 0.5-1.5% COHB ?? Smokers: Variable ??but usually less than 10% ?? Toxic: 20-30% COHB ?? Lethal: Greater than 60% COHB Methemoglobin, Arterial 0.3 <=1.5 % 06/14/2024 8:40 AM [facility] Sodium, Arterial 136 135 - 145 mmol/L 06/14/2024 8:40 AM [facility] Potassium, Arterial 4.2 3.5 - 5.0 mmol/L 06/14/2024 8:40 AM [facility] Chloride, Arterial 102 98 - 107 mmol/L 06/14/2024 8:40 AM [facility] Lactate, Arterial 0.9 0.5 - 2.2 mmol/L 06/14/2024 8:40 AM [facility] IONIZED CALCIUM, ARTERIAL 1.17 1.15 - 1.33 mmol/L 06/14/2024 8:40 AM [facility] Glucose, Arterial 121 65 - 199 mg/dL 06/14/2024 8:40 AM [facility] Comment:Glucose Concentratio n >=200 mg/dL plus symptoms is consistent with Diabetes Mellitus. Blood ARTERIAL BLOOD / Unknown 06/14/2024 8:39 AM EST 06/14/2024 8:40 AM EST Haja Byrnes MD POINT OF CARE TEST O RDERABLES [facility] [place] [address] * Transesophageal Echo/OR (06/14/2024 7:20 AM EST) Anatomical Region Laterality Modality Cardiac Other 06/14/2024 7:20 AM EST Narrative 06/14/2024 4:36 PM EST Version: 2 Study ID: [id number] [address] [place] [address] ?OR Transesophageal Echo Report Name: GEORGE MEHTA [...] of this mass after consultation with other special order jeweler experts and the decision was made by [...] MD - 11/11/2024 Version: 2 Study ID: [id number] [address] [place] [id number] ORTransesophageal Echo Report Name: GEORGE MEHTA Study [...] of this mass after consultation with other special order jeweler experts and thedecision was made by surgeon [...] O RDERABLES [facility] [place] [address] * POC, GLUCOSE (06/14/2024 4:30 AM EST) Glucometer, POC 85 65 - 199 mg/dL 06/14/2024 4:30 AM EST [facility] Comment:Supplemental ranges: <140 mg/dL before meals <180 mg/dL all other times of the day. Blood CAPILLARY BLOOD / Unknown 06/14/2024 4:30 AM EST 06/14/2024 4:30 AM EST Haja Byrnes MD POINT OF CARE TEST O RDERABLES Performing Organization Address [facility]/ZIP Co de Phone Number [facility] [place] [address] * (ABNORMAL) Heparin (unfractionated) Level (06/14/2024 12:12 AM EST) Pathologist [facility]F Heparin 1.02(HH[facility]) IU/mL 06/14/2024 12:46 [...] MD HEMATOLOGY ORDERABLE S Performing Organization Address City/[facility]/ZIP Co de Phone Number [facility] [place] [address] * (ABNORMAL) CBC (with Diff) (06/14/2024 12:12 AM [facility]) [facility] Signature White Blood Cell 10.51(H) 4.00 - 9.50 x10(3)/mc L 06/14/2024 12:38 AM [facility] Red Blood Cell 4.99 4.58 - 5.54 x10(6)/mc L 06/14/2024 12:38 AM [facility] Hemoglobin 14.9 13.7 - 16.5 g/dL 06/14/2024 12:38 AM [facility] Hematocrit 45.9 40.5 - 48.5 % 06/14/2024 12:38 AM [facility] Mean Cell Volume 92.0 82.9 - 93.1 fL 06/14/2024 12:38 AM [facility] Mean Cell Hemoglobin 29.9 27.5 - 32.1 pg 06/14/2024 12:38 AM [facility] Mean Cell Hemoglobin Concentration 32.5 32.0 - 35.7 g/dL 06/14/2024 12:38 AM [facility] Platelet 162 145 - 357 x10(3)/mc L 06/14/2024 12:38 AM [facility] Mean Platelet Volume 10.1 7.6 - 12.9 fL 06/14/2024 12:38 AM [facility] RDW Standard Deviation 46.9(H) 36.0 - 45.0 fL 06/14/2024 12:38 AM [facility] RDW coefficient of variation 13.8 11.4 - 13.8 % 06/14/2024 12:38 AM [facility] NRBC% auto 0.0 % 06/14/2024 12:38 AM [facility] NRBC Absolute <0.01 <0.01 x10(3)/mc L 06/14/2024 12:38 AM [facility] Neutrophil % 56.7 % 06/14/2024 12:38 AM [facility] Neutrophil Absolute (ANC) - Automated 5.96 1.70 - 6.10 x10(3)/mc L 06/14/2024 12:38 AM [facility] Lymph % 26.8 % 06/14/2024 12:38 AM [facility] Lymph Absolute 2.82 0.90 - 3.20 x10(3)/mc L 06/14/2024 12:38 AM [facility] Monocyte % 11.2 % 06/14/2024 12:38 AM [facility] Monocyte Absolute 1.18(H) 0.30 - 0.90 x10(3)/mc L 06/14/2024 12:38 AM [facility] Eos % 3.9 % 06/14/2024 12:38 AM [facility] Eos Absolute 0.41(H) 0.00 - 0.40 x10(3)/mc L 06/14/2024 12:38 AM [facility] Basophil % 0.8 % 06/14/2024 12:38 AM [facility] Baso Absolute 0.08 0.00 - 0.10 x10(3)/mc L 06/14/2024 12:38 AM [facility] Immature Gran % 0.6 % 12:38 AM [facility] Immature Gran Absolute 0.06(H) 0.00 - 0.04 x10(3)/mc L 06/14/2024 12:38 AM [facility] Blood VENOUS BLOOD SPECIMEN / Unknown Venipuncture / Unknown 06/14/2024 12:12 AM EST 06/14/2024 12:29 AM EST Shahnaz Scanlon MD HEMATOLOGY ORDERABLE S [facility] [place] [address] * Magnesium (06/14/2024 12:12 AM EST) Magnesium 0.74 0.69 - 1.07 mMol/L 06/14/2024 12:57 AM EST [facility] Blood VENOUS BLOOD SPECIMEN / Unknown Venipuncture / Unknown 06/14/2024 12:12 AM EST 06/14/2024 12:29 AM EST Shanhaz Scanlon MD CHEMISTRY ORDERABLES [facility] [place] [address] * (ABNORMAL) Basic Metabolic Panel (06/14/2024 12:12 AM EST) Glucose 97 65 - 199 mg/dL 06/14/2024 12:57 AM [facility] Comment:Glucose Concentratio n >=200 mg/dL plus symptoms is consistent with Diabetes Mellitus. Blood Urea Nitrogen 25(H) 10 - 20 mg/dL 06/14/2024 12:57 AM [facility] Creatinine 1.14 0.80 - 1.50 mg/dL 06/14/2024 12:57 AM [facility] Sodium 135 135 - 145 mMol/L 06/14/2024 12:57 AM [facility] Potassium 4.1 3.5 - 5.0 mMol/L 06/14/2024 12:57 AM [facility] Chloride 100 98 - 107 mMol/L 06/14/2024 12:57 AM [facility] Carbon Dioxide 25 22 - 31 mMol/L 06/14/2024 12:57 AM [facility] Anion Gap 10 5 - 15 mMol/L 06/14/2024 12:57 AM [facility] Calcium 9.5 8.5 - 10.5 mg/dL 06/14/2024 12:57 AM [facility] Est Glomerular Filtration Rate - [...] Scanlon MD CHEMISTRY ORDERABLES Performing Organization Address [facility] Co de Phone Number [facility] [place] [address] * Scan Doc: Implantable Devices (06/14/2024 12:00 [...] TEST O RDERABLES Performing Organization Address [facility]/ZIP Co de Phone Number [facility] [place] [address] * (ABNORMAL) POC, GLUCOSE (06/13/2024 8:03 PM [...] TEST O RDERABLES Performing Organization Address [facility] Co de Phone Number [facility] [place] [address] * Heparin (unfractionated) Level (06/13/2024 4:11 PM [...] MD HEMATOLOGY ORDERABLE S Performing Organization Address [facility] Co de Phone Number [facility] [place] [address] * ABORH RECHECK (06/13/2024 4:11 PM EST) Pathologist [facility] ABORH Recheck O POSITIVE 06/13/2024 4:50 PM EST [facility] Blood VENOUS BLOOD SPECIMEN / Unknown Venipuncture / Unknown 06/13/2024 4:11 PM EST 06/13/2024 4:19 PM EST Haja Byrnes MD BLOOD BANK LAB ORDER [place] [facility] [place] [place] [address] * (ABNORMAL) POC, GLUCOSE (06/13/2024 4:09 PM EST) [facility] Glucometer, POC 216(H) 65 - 199 mg/dL 06/13/2024 4:10 PM EST [facility] Comment:Supplemental ranges: <140 mg/dL before meals <180 mg/dL all other times of the day. Blood CAPILLARY BLOOD / Unknown 06/13/2024 4:09 PM EST 06/13/2024 4:10 PM EST Haja Byrnes MD POINT OF CARE TEST O RDERABLES Performing Organization Address City/[facility]/ZIP Co de Phone Number [facility] [place] [address] * Type and screen ([facility] [place]/CGP/RAFITA) (06/13/2024 11:53 AM EST) Pathologist [facility] ABORH Type O POSITIVE 06/13/2024 1:16 PM EST [facility] PATIENT HISTORY Not Found 06/13/2024 1:16 PM EST [facility] Expires at [id number] on: 06/16/2024 06/13/2024 1:16 PM EST [facility] ANTIBODY SCREEN AUTOMATED Negative 06/13/2024 1:16 PM EST [facility] T&S only valid at [facility] [place] [facility] 06/13/2024 1:16 PM EST [facility] Blood VENOUS BLOOD SPECIMEN / Unknown Venipuncture / Unknown 06/13/2024 11:53 AM EST 06/13/2024 11:56 AM EST Narrative [facility] - 06/13/2024 1:16 PM EST This Type and Screen result is only valid at the [facility] [place] [place] [facility] Haja Byrnes MD BLOOD BANK LAB ORDER [place] Performing Organization Address [facility] Co de Phone Number [facility] [place] [place] [address] * POC, GLUCOSE (06/13/2024 11:50 AM EST) Glucometer, POC 178 65 - 199 mg/dL 06/13/2024 11:51 AM EST [facility] Comment:Supplemental ranges: <140 mg/dL before meals <180 mg/dL all other times of the day. Blood CAPILLARY BLOOD / Unknown 06/13/2024 11:50 AM EST 06/13/2024 11:51 AM EST Haja Byrnes MD POINT OF CARE TEST O RDERABLES Performing Organization Address [facility] Co de Phone Number [facility] [place] [address] * XR Chest One View (06/13/2024 10:35 AM EST) WORKSTATION ID [id number] [facility] Anatomical Region Laterality Modality Chest N/A [...] who have questions please contact the health manager medicare marketing that requested your imaging first. ? Electronically signed by: Jyothi Simon MD, [facility] ([phone]), at 06/13/2024 10:43 AM Narrative 06/13/2024 10:43 [...] patients who have questions please contactthe health manager medicare marketing that requested your imaging first. Electronically signed by: Jyothi Simon MD, [facility]([phone]), at 06/13/2024 10:43 AM Haja Santiago Fitz GARCIA IMG DX ORDERABLES * CARDIAC CATHETERIZATION (06/13/2024 9:02 AM EST) Anatomical Region Laterality Modality Other Narrative 06/15/2024 9:07 AM EST ?[facility] ? Cardiac Catheterization/Intervention Report ? Patient Name: Tyson, George L. ? Procedure Date: 06/13/2024 ? A #: [id number] ? Primary Physician: Nuha Shen I ? Case #: [id number] ? File Name: [id number] ? Catheterization Order Number: [id number] ? [facility] ?Compliance Representative [facility] ? Final Report [place], [place] ? Patient Name: ? George L. Tyson ? ID#: ?[id number] ? : ?1955 ? Procedure Date: ? June 13, 2024 ?Case #: ? [id number] ? Room: ? 6 ? Case Physician: [...] ?was designated as ASA Class IV. The [facility] clinical frailty scale is 5: ?Mildly [...] procedure was Urgent. The indication for ?the landscape laborer visit is ACS greater than 24 [...] angiography, vascular ?ultrasound and IABP insertion in landscape laborer. ? Nuha Shen M.D. ? Electronically Signed by: Nuha Shen M.D. ? Report Finalized: 06/15/2024 ??08:59 ? Procedure Note Nuha Shen MD - 06/15/2024 [facility] Cardiac Catheterization/Intervention Report Patient Name: George Mehta Procedure Date: 06/13/2024 A #: [id number] Primary Physician: Nuha Shen I Case #: [id number] File Name: [id number] Catheterization Order Number: [id number] [facility] FinalReport [place], [place] Patient Name: George Mehta ID#:[id number] :1955 Procedure Date: June 13, 2024 Case [...] was designated as ASA Class IV. The [facility] clinical frailty scale is5: Mildly Frail. [...] diagnostic procedure was Urgent. 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 Nuha Shen M.D. Electronically Signed by: [...] Scanlon MD CHEMISTRY ORDERABLES Performing Organization Address City/State/[facility] de Phone Number [facility] [place] [address] * POC, GLUCOSE (06/13/2024 7:41 AM EST) Glucometer, POC 126 65 - 199 mg/dL 06/13/2024 7:41 AM EST [facility] Comment:Supplemental ranges: <140 mg/dL before meals <180 mg/dL all other times of the day. Blood CAPILLARY BLOOD / Unknown 06/13/2024 7:41 AM EST 06/13/2024 7:41 AM EST Ethel Carrillo MD POINT OF CARE TEST O NIKA Performing Organization Address [facility] Phone Number [facility] [place] [address] * POC, GLUCOSE (06/13/2024 3:25 AM EST) [facility] Glucometer, POC 99 65 - 199 mg/dL 06/13/2024 3:25 AM EST [facility] Comment:Supplemental ranges: <140 mg/dL before meals <180 mg/dL all other times of the day. Blood CAPILLARY BLOOD / Unknown 06/13/2024 3:25 AM EST 06/13/2024 3:25 AM EST Ethel Carrillo MD POINT OF CARE TEST Abimael MAHER Performing Organization Address [facility] Phone Number [facility] [place] [address] * Heparin (unfractionated) Level (06/13/2024 2:26 AM EST) [facility] UF Heparin 0.60 IU/mL 06/13/2024 3:32 [...] HEMATOLOGY ORDERABLE S Performing Organization Address City/State/[facility] Co de Phone Number [facility] [place] [phone] * (ABNORMAL) CBC (with Diff) (06/13/2024 2:26 AM EST) White Blood Cell 9.98(H) 4.00 - 9.50 x10(3)/mc L 06/13/2024 2:41 AM EST [facility] Red Blood Cell 5.11 4.58 - 5.54 x10(6)/mc L 06/13/2024 2:41 AM EST [facility] Hemoglobin 15.3 13.7 - 16.5 g/dL 06/13/2024 2:41 AM EST [facility] Hematocrit 47.1 40.5 - 48.5 % 06/13/2024 2:41 AM EST [facility] Mean Cell Volume 92.2 82.9 - 93.1 fL 06/13/2024 2:41 AM EST [facility] Mean Cell Hemoglobin 29.9 27.5 - 32.1 pg 06/13/2024 2:41 AM EST [facility] Mean Cell Hemoglobin Concentration 32.5 32.0 - 35.7 g/dL 06/13/2024 2:41 AM [facility] Platelet 194 145 - 357 x10(3)/mc L 06/13/2024 2:41 AM [facility] Mean Platelet Volume 9.7 7.6 - 12.9 fL 06/13/2024 2:41 AM [facility] RDW Standard Deviation 47.5(H) 36.0 - 45.0 fL 06/13/2024 2:41 AM [facility] RDW coefficient of variation 13.8 11.4 - 13.8 % 06/13/2024 2:41 AM [facility] NRBC% auto 0.0 % 06/13/2024 2:41 AM [facility] NRBC Absolute <0.01 <0.01 x10(3)/mc L 06/13/2024 2:41 AM [facility] Neutrophil % 48.8 % 06/13/2024 2:41 AM [facility] Neutrophil Absolute (ANC) - Automated 4.87 1.70 - 6.10 x10(3)/mc L 06/13/2024 2:41 AM [facility] Lymph % 35.3 % 06/13/2024 2:41 AM [facility] Lymph Absolute 3.52(H) 0.90 - 3.20 x10(3)/mc L 06/13/2024 2:41 AM [facility] Monocyte % 10.1 % 06/13/2024 2:41 AM [facility] Monocyte Absolute 1.01(H) 0.30 - 0.90 x10(3)/mc L 06/13/2024 2:41 AM [facility] Eos % 4.4 % 06/13/2024 2:41 AM [facility] Eos Absolute 0.44(H) 0.00 - 0.40 x10(3)/mc L 06/13/2024 2:41 AM [facility] Basophil % 0.9 % 06/13/2024 2:41 AM EST [facility] Baso Absolute 0.09 0.00 - 0.10 x10(3)/mc L 06/13/2024 2:41 AM EST [facility] Immature Gran % 0.5 % 2:41 AM EST [facility] Immature Gran Absolute 0.05(H) 0.00 - 0.04 x10(3)/mc L 06/13/2024 2:41 AM EST [facility] Blood VENOUS BLOOD SPECIMEN / Unknown Venipuncture / Unknown 06/13/2024 2:26 AM EST 06/13/2024 2:32 AM EST Shahnaz Scanlon MD HEMATOLOGY ORDERABLE S Performing Organization Address City/[facility]/ZIP Co de Phone Number [facility] [place] [address] * Magnesium (06/13/2024 2:26 AM EST) Magnesium 0.78 0.69 - 1.07 mMol/L 06/13/2024 2:58 AM [facility] Blood VENOUS BLOOD SPECIMEN / Unknown Venipuncture / Unknown 06/13/2024 2:26 AM EST 06/13/2024 2:31 AM EST Shahnaz Scanlon MD CHEMISTRY ORDERABLES [facility] [place] [address] * (ABNORMAL) Basic Metabolic Panel (06/13/2024 2:26 AM EST) Glucose 121 65 - 199 mg/dL 06/13/2024 2:58 AM [facility] Comment:Glucose Concentratio n >=200 mg/dL plus symptoms is consistent with Diabetes Mellitus. Blood Urea Nitrogen 21(H) 10 - 20 mg/dL 06/13/2024 2:58 AM EST [facility] Creatinine 1.07 0.80 - 1.50 mg/dL 06/13/2024 2:58 AM EST [facility] Sodium 136 135 - 145 mMol/L 06/13/2024 2:58 AM [facility] Potassium 3.9 3.5 - 5.0 mMol/L 06/13/2024 2:58 AM [facility] Chloride 99 98 - 107 mMol/L 06/13/2024 2:58 AM [facility] Carbon Dioxide 27 22 - 31 mMol/L 06/13/2024 2:58 AM [facility] Anion Gap 10 5 - 15 mMol/L 06/13/2024 2:58 AM [facility] Calcium 9.7 8.5 - 10.5 mg/dL 06/13/2024 2:58 AM [facility] Est Glomerular Filtration Rate - Male 76 mL/min/1. 73 m?? 06/13/2024 2:58 AM EST [facility] CHEMISTRY ORDERABLES [facility] [place] [address] * POC, GLUCOSE (06/12/2024 11:53 PM EST) Glucometer, POC 141 65 - 199 mg/dL 06/12/2024 11:54 PM EST [facility] Comment:Supplemental ranges: <140 mg/dL before meals <180 mg/dL all other times of the day. Blood CAPILLARY BLOOD / Unknown 06/12/2024 11:53 PM EST 06/12/2024 11:54 PM EST Ethel Carrillo MD POINT OF CARE TEST O NIKA Performing Organization Address City/[facility] Co de Phone Number [facility] [place] [address] * POC, GLUCOSE (06/12/2024 7:32 PM EST) Glucometer, POC 158 65 - 199 mg/dL 06/12/2024 7:32 PM EST [facility] Comment:Supplemental ranges: <140 mg/dL before meals <180 mg/dL all other times of the day. Blood CAPILLARY BLOOD / Unknown 06/12/2024 7:32 PM EST 06/12/2024 7:32 PM EST Ethel Carrillo MD POINT OF CARE TEST O NIKA Performing Organization Address [facility] Co de Phone Number [facility] [place] [address] * POC, GLUCOSE (06/12/2024 3:41 PM EST) Glucometer, POC 113 65 - 199 mg/dL 06/12/2024 3:41 PM EST [facility] Comment:Supplemental ranges: <140 mg/dL before meals <180 mg/dL all other times of the day. Blood CAPILLARY BLOOD / Unknown 06/12/2024 3:41 PM EST 06/12/2024 3:41 PM EST Ethel Carrillo MD POINT OF CARE TEST O NIKA Performing Organization Address City/[facility]/ZIP Co de Phone Number [facility] [place] [address] * Potassium (06/12/2024 2:19 PM EST) Potassium 4.5 3.5 - 5.0 mMol/L 06/12/2024 2:45 PM EST [facility] Blood VENOUS BLOOD SPECIMEN / Unknown Venipuncture / Unknown 06/12/2024 2:19 PM EST 06/12/2024 2:23 PM EST Shahnaz Scanlon MD CHEMISTRY ORDERABLES [facility] [place] [address] * (ABNORMAL) POC, GLUCOSE (06/12/2024 11:21 AM [...] O NIKA [facility] [place] [address] * POC, GLUCOSE (06/12/2024 8:00 AM EST) [...] O NIKA [facility] [place] [address] * POC, GLUCOSE (06/12/2024 4:25 AM EST) Glucometer, POC 132 65 - 199 mg/dL 06/12/2024 4:26 AM EST [facility] Comment:Supplemental ranges: <140 mg/dL before meals <180 mg/dL all other times of the day. Blood CAPILLARY BLOOD / Unknown 06/12/2024 4:25 AM EST 06/12/2024 4:26 AM EST Ethel Carrillo MD POINT OF CARE TEST O RDERABLES Performing Organization Address [facility] Co de Phone Number [facility] [place] [address] * Heparin (unfractionated) Level (06/12/2024 3:03 AM [...] ORDERABLE S [facility] [place] [address] * (ABNORMAL) CBC (with Diff) (06/12/2024 3:03 AM EST) White Blood Cell 9.69(H) 4.00 - 9.50 x10(3)/mc L 06/12/2024 3:36 AM [facility] Red Blood Cell 5.05 4.58 - 5.54 x10(6)/mc L 06/12/2024 3:36 AM [facility] Hemoglobin 15.2 13.7 - 16.5 g/dL 06/12/2024 3:36 AM [facility] Hematocrit 46.6 40.5 - 48.5 % 06/12/2024 3:36 AM [facility] Mean Cell Volume 92.3 82.9 - 93.1 fL 06/12/2024 3:36 AM [facility] Mean Cell Hemoglobin 30.1 27.5 - 32.1 pg 06/12/2024 3:36 AM [facility] Mean Cell Hemoglobin Concentration 32.6 32.0 - 35.7 g/dL 06/12/2024 3:36 AM [facility] Platelet 194 145 - 357 x10(3)/mc L 06/12/2024 3:36 AM [facility] Mean Platelet Volume 10.1 7.6 - 12.9 fL 06/12/2024 3:36 AM [facility] RDW Standard Deviation 47.7(H) 36.0 - 45.0 fL 06/12/2024 3:36 AM [facility] RDW coefficient of variation 14.0(H) 11.4 - 13.8 % 06/12/2024 3:36 AM [facility] NRBC% auto 0.0 % 06/12/2024 3:36 AM [facility] NRBC Absolute <0.01 <0.01 x10(3)/mc L 06/12/2024 3:36 AM [facility] Neutrophil % 49.9 % 06/12/2024 3:36 AM [facility] Neutrophil Absolute (ANC) - Automated 4.82 1.70 - 6.10 x10(3)/mc L 06/12/2024 3:36 AM [facility] Lymph % 33.5 % 06/12/2024 3:36 AM [facility] Lymph Absolute 3.25(H) 0.90 - 3.20 x10(3)/mc L 06/12/2024 3:36 AM [facility] Monocyte % 11.1 % 06/12/2024 3:36 AM [facility] Monocyte Absolute 1.08(H) 0.30 - 0.90 x10(3)/mc L 06/12/2024 3:36 AM [facility] Eos % 4.1 % 06/12/2024 3:36 AM [facility] Eos Absolute 0.40 0.00 - 0.40 x10(3)/mc L 06/12/2024 3:36 AM [facility] Basophil % 0.8 % 06/12/2024 3:36 AM [facility] Baso Absolute 0.08 0.00 - 0.10 x10(3)/mc L 06/12/2024 3:36 AM [facility] Immature Gran % 0.6 % 3:36 AM [facility] Immature Gran Absolute 0.06(H) 0.00 - 0.04 x10(3)/mc L 06/12/2024 3:36 AM [facility] Blood VENOUS BLOOD SPECIMEN / Unknown Venipuncture / Unknown 06/12/2024 3:03 AM EST 06/12/2024 3:30 AM EST Shahnaz Scanlon MD HEMATOLOGY ORDERABLE S [facility] [place] [address] * Magnesium (06/12/2024 3:03 AM EST) Pathologist [facility] Magnesium 0.79 0.69 - 1.07 mMol/L 06/12/2024 4:01 AM [facility] Blood VENOUS BLOOD SPECIMEN / Unknown Venipuncture / Unknown 06/12/2024 3:03 AM EST 06/12/2024 3:30 AM EST Shahnaz Scanlon MD CHEMISTRY ORDERABLES [facility] [place] [address] * (ABNORMAL) Basic Metabolic Panel (06/12/2024 3:03 AM EST) Pathologist [facility] Glucose 132 65 - 199 mg/dL 06/12/2024 4:01 AM [facility] Comment:Glucose Concentratio n >=200 mg/dL plus symptoms is consistent with Diabetes Mellitus. Blood Urea Nitrogen 23(H) 10 - 20 mg/dL 06/12/2024 4:01 AM [facility] Creatinine 1.15 0.80 - 1.50 mg/dL 06/12/2024 4:01 AM [facility] Sodium 138 135 - 145 mMol/L 06/12/2024 4:01 AM [facility] Potassium 3.8 3.5 - 5.0 mMol/L 06/12/2024 4:01 AM [facility] Chloride 98 98 - 107 mMol/L 06/12/2024 4:01 AM [facility] Carbon Dioxide 29 22 - 31 mMol/L 06/12/2024 4:01 AM [facility] Anion Gap 11 5 - 15 mMol/L 06/12/2024 4:01 AM [facility] Calcium 9.5 8.5 - 10.5 mg/dL 06/12/2024 4:01 AM [facility] Est Glomerular Filtration Rate - Male 70 mL/min/1. 73 m?? 06/12/2024 4:01 AM EST [facility] [...] Scanlon MD CHEMISTRY ORDERABLES Performing Organization Address City/[facility]/ZIP Co de Phone Number [facility] [place] [address] * POC, GLUCOSE (06/11/2024 11:56 PM EST) [...] Organization Address City/[facility]/ZIP Co de Phone Number [facility] [place] [address] * (ABNORMAL) POC, GLUCOSE (06/11/2024 8:25 PM EST) Glucometer, POC 210(H) 65 - 199 mg/dL 06/11/2024 8:26 PM EST [facility] [facility] Comment:Supplemental ranges: <140 mg/dL before meals <180 mg/dL all other times of the day. Blood CAPILLARY BLOOD / Unknown 06/11/2024 8:25 PM EST 06/11/2024 8:26 PM EST Ethel Carrillo MD POINT OF CARE TEST O RDBECKIE Performing Organization Address [facility] Co de Phone Number [facility] [place] [address] * POC, GLUCOSE (06/11/2024 4:24 PM EST) Glucometer, POC 81 65 - 199 mg/dL 06/11/2024 4:24 PM EST [facility] Comment:Supplemental ranges: <140 mg/dL before meals <180 mg/dL all other times of the day. Blood CAPILLARY BLOOD / Unknown 06/11/2024 4:24 PM EST 06/11/2024 4:25 PM EST Ethel Carrillo MD POINT OF CARE TEST O NIKA Performing Organization Address [facility] Co de Phone Number [facility] [place] [address] * (ABNORMAL) POC, GLUCOSE (06/11/2024 11:08 AM EST) Glucometer, POC 233(H) 65 - 199 mg/dL 06/11/2024 11:08 AM EST [facility] Comment:Supplemental ranges: <140 mg/dL before meals <180 mg/dL all other times of the day. Blood CAPILLARY BLOOD / Unknown 06/11/2024 11:08 AM EST 06/11/2024 11:08 AM EST Ethel Carrillo MD POINT OF CARE TEST O NIKA Performing Organization Address [facility] Co de Phone Number [facility] [place] [address] * POC, GLUCOSE (06/11/2024 7:48 AM EST) Glucometer, POC 184 65 - 199 mg/dL 06/11/2024 7:49 AM EST [facility] Comment:Supplemental ranges: <140 mg/dL before meals <180 mg/dL all other times of the day. Blood CAPILLARY BLOOD / Unknown 06/11/2024 7:48 AM EST 06/11/2024 7:49 AM EST Melida Valdes MD POINT OF CARE TEST O RDERABLES Performing Organization Address [facility] de Phone Number [facility] [place] [address] * Heparin (unfractionated) Level (06/11/2024 5:31 AM EST) Pathologist [facility]F Heparin 0.55 IU/mL 06/11/2024 6:10 AM [...] MD HEMATOLOGY ORDERABLE S Performing Organization Address [facility] Co de Phone Number [facility] [place] [address] * POC, GLUCOSE (06/11/2024 3:57 AM EST) [facility] Glucometer, POC 132 65 - 199 mg/dL 06/11/2024 3:58 AM [facility] Comment:Supplemental ranges: <140 mg/dL before meals <180 mg/dL all other times of the day. Blood CAPILLARY BLOOD / Unknown 06/11/2024 3:57 AM EST 06/11/2024 3:58 AM EST Melida Valdes MD POINT OF CARE TEST O RDERABLES [facility] [place] [address] * (ABNORMAL) CBC (with Diff) (06/11/2024 2:13 AM EST) [facility] White Blood Cell 9.91(H) 4.00 - 9.50 x10(3)/mc L 06/11/2024 2:26 AM [facility] Red Blood Cell 5.13 4.58 - 5.54 x10(6)/mc L 06/11/2024 2:26 AM [facility] Hemoglobin 15.3 13.7 - 16.5 g/dL 06/11/2024 2:26 AM [facility] Hematocrit 47.5 40.5 - 48.5 % 06/11/2024 2:26 AM [facility] Mean Cell Volume 92.6 82.9 - 93.1 fL 06/11/2024 2:26 AM [facility] Mean Cell Hemoglobin 29.8 27.5 - 32.1 pg 06/11/2024 2:26 AM [facility] Mean Cell Hemoglobin Concentration 32.2 32.0 - 35.7 g/dL 06/11/2024 2:26 AM [facility] Platelet 184 145 - 357 x10(3)/mc L 06/11/2024 2:26 AM [facility] Mean Platelet Volume 9.7 7.6 - 12.9 fL 06/11/2024 2:26 AM [facility] RDW Standard Deviation 48.0(H) 36.0 - 45.0 fL 06/11/2024 2:26 AM [facility] RDW coefficient of variation 14.0(H) 11.4 - 13.8 % 06/11/2024 2:26 AM [facility] NRBC% auto 0.0 % 06/11/2024 2:26 AM [facility] NRBC Absolute <0.01 <0.01 x10(3)/mc L 06/11/2024 2:26 AM [facility] Neutrophil % 50.3 % 06/11/2024 2:26 AM [facility] Neutrophil Absolute (ANC) - Automated 4.98 1.70 - 6.10 x10(3)/mc L 06/11/2024 2:26 AM [facility] Lymph % 33.5 % 06/11/2024 2:26 AM [facility] Lymph Absolute 3.32(H) 0.90 - 3.20 x10(3)/mc L 06/11/2024 2:26 AM [facility] Monocyte % 10.9 % 06/11/2024 2:26 AM [facility] Monocyte Absolute 1.08(H) 0.30 - 0.90 x10(3)/mc L 06/11/2024 2:26 AM [facility] Eos % 4.1 % 06/11/2024 2:26 AM [facility] Eos Absolute 0.41(H) 0.00 - 0.40 x10(3)/mc L 06/11/2024 2:26 AM [facility] Basophil % 0.7 % 06/11/2024 2:26 AM [facility] Baso Absolute 0.07 0.00 - 0.10 x10(3)/mc L 06/11/2024 2:26 AM [facility] Immature Gran % 0.5 % 2:26 AM EST [facility] Immature Gran Absolute 0.05(H) 0.00 - 0.04 x10(3)/mc L 06/11/2024 2:26 AM [facility] Blood VENOUS BLOOD SPECIMEN / Unknown Venipuncture / Unknown 06/11/2024 2:13 AM EST 06/11/2024 2:19 AM EST Shahnaz Scanlon MD HEMATOLOGY ORDERABLE S Performing Organization Address [facility]/ZIP Co de Phone Number [facility] [place] [address] * Magnesium (06/11/2024 2:13 AM EST) Magnesium 0.83 0.69 - 1.07 mMol/L 06/11/2024 2:51 AM [facility] Blood VENOUS BLOOD SPECIMEN / Unknown Venipuncture / Unknown 06/11/2024 2:13 AM EST 06/11/2024 2:19 AM EST Shahnaz Scanlon MD CHEMISTRY ORDERABLES Performing Organization Address [facility] Co de Phone Number [facility] [place] [address] * (ABNORMAL) Basic Metabolic Panel (06/11/2024 2:13 AM EST) Glucose 148 65 - 199 mg/dL 06/11/2024 2:51 AM [facility] Comment:Glucose Concentratio n >=200 mg/dL plus symptoms is consistent with Diabetes Mellitus. Blood Urea Nitrogen 24(H) 10 - 20 mg/dL 06/11/2024 2:51 AM [facility] Creatinine 1.06 0.80 - 1.50 mg/dL 06/11/2024 2:51 AM [facility] Sodium 134(L) 135 - 145 mMol/L 06/11/2024 2:51 AM [facility] Potassium 4.1 3.5 - 5.0 mMol/L 06/11/2024 2:51 AM [facility] Chloride 96(L) 98 - 107 mMol/L 06/11/2024 2:51 AM [facility] Carbon Dioxide 28 22 - 31 mMol/L 06/11/2024 2:51 AM [facility] Anion Gap 10 5 - 15 mMol/L 06/11/2024 2:51 AM [facility] Calcium 9.4 8.5 - 10.5 mg/dL 06/11/2024 2:51 AM [facility] Est Glomerular Filtration Rate - Male 77 mL/min/1. 73 m?? 06/11/2024 2:51 AM [facility] Comment: This patient's estimated GFR [...] CHEMISTRY ORDERABLES [facility] [place] [address] * POC, GLUCOSE (06/11/2024 12:50 AM EST) [facility] Signature Glucometer, POC 144 65 - 199 mg/dL 06/11/2024 12:51 AM EST [facility] Comment:Supplemental ranges: <140 mg/dL before meals <180 mg/dL all other times of the day. Blood CAPILLARY BLOOD / Unknown 06/11/2024 12:50 AM EST 06/11/2024 12:51 AM EST Melida Valdes MD POINT OF CARE TEST O NIKA Performing Organization Address [facility] Co de Phone Number [facility] [place] [address] * (ABNORMAL) POC, GLUCOSE (06/10/2024 7:22 PM EST) Glucometer, POC 236(H) 65 - 199 mg/dL 06/10/2024 7:22 PM EST [facility] Comment:Supplemental ranges: <140 mg/dL before meals <180 mg/dL all other times of the day. Blood CAPILLARY BLOOD / Unknown 06/10/2024 7:22 PM EST 06/10/2024 7:22 PM EST Melida Valdes MD POINT OF CARE TEST O NIKA Performing Organization Address [facility] Co de Phone Number [facility] [place] [address] * (ABNORMAL) Blood Gas, Venous (06/10/2024 5:42 PM EST) pH, Venous 7.34 7.32 - 7.42 06/10/2024 5:50 PM [facility] PCO2, Venous 52 38 - 58 mmHg 06/10/2024 5:50 PM [facility] PO2, Venous 24 16 - 65 mmHg 06/10/2024 5:50 PM [facility] Bicarbonate, Venous 27.4 22 - 31 mmol/L 06/10/2024 5:50 PM [facility] Base Excess, Venous 1.7(L) 1.9 - 4.5 mmol/L 06/10/2024 5:50 PM [facility] Hemoglobin, Venous 16.8(H) 13.7 - 16.5 g/dL 06/10/2024 5:50 PM [facility] Oxyhemoglobin, Venous 39.0 % 06/10/2024 5:50 PM [facility] Carboxyhemoglobin , Venous 0.3 % 06/10/2024 5:50 PM [facility] Comment: Nonsmokers: 0.5-1.5% COHB ?? Smokers: Variable ??but usually less than 10% ?? Toxic: 20-30% COHB ?? Lethal: Greater than 60% COHB Methemoglobin, Venous 0.5 <=1.5 % 06/10/2024 5:50 PM [facility] Sodium, Venous 137 135 - 145 mmol/L 06/10/2024 5:50 PM [facility] Chloride, Venous 96(L) 98 - 107 mmol/L 06/10/2024 5:50 PM [facility] Potassium, Venous 4.6 3.5 - 5.0 mmol/L 06/10/2024 5:50 PM [facility] Ionized Calcium, Venous 1.23 1.15 - 1.33 mmol/L 06/10/2024 5:50 PM [facility] Glucose, Venous 114 65 - 199 mg/dL 06/10/2024 5:50 PM [facility] Comment:Glucose Concentratio n >=200 mg/dL plus symptoms is consistent with Diabetes Mellitus. Lactate, Venous 1.1 0.5 - 2.2 mmol/L 06/10/2024 5:50 PM [facility] Blood Gas Source Venous 06/10/20 5:50 PM [facility] Blood VENOUS BLOOD SPECIMEN / Unknown Blood Gas Venous / Unknown 06/10/2024 5:42 PM EST 06/10/2024 5:47 PM EST Melida Valdes MD CHEMISTRY ORDERABLES [facility] [place] [address] * POC, GLUCOSE (06/10/2024 5:35 PM EST) [facility] Signature Glucometer, POC 123 65 - 199 mg/dL 06/10/2024 5:35 PM EST [facility] Comment:Supplemental ranges: <140 mg/dL before meals <180 mg/dL all other times of the day. Blood CAPILLARY BLOOD / Unknown 06/10/2024 5:35 PM EST 06/10/2024 5:35 PM EST Melida Valdes MD POINT OF CARE TEST O NIKA Performing Organization Address [facility] Co de Phone Number [facility] [place] [address] * (ABNORMAL) POC, GLUCOSE (06/10/2024 11:25 AM [...] TEST O NIKA Performing Organization Address [facility] de Phone Number [facility] [place] [address] * (ABNORMAL) POC, GLUCOSE (06/10/2024 7:46 AM EST) Glucometer, POC 206(H) 65 - 199 mg/dL 06/10/2024 7:46 AM EST [facility] Comment:Supplemental ranges: <140 mg/dL before meals <180 mg/dL all other times of the day. Blood CAPILLARY BLOOD / Unknown 06/10/2024 7:46 AM EST 06/10/2024 7:46 AM EST Melida Valdes MD POINT OF CARE TEST O NIKA Performing Organization Address [place]/[facility] Co de Phone Number [facility] [place] [address] * POC, GLUCOSE (06/10/2024 4:23 AM EST) Pathologist [facility] Glucometer, POC 154 65 - 199 mg/dL 06/10/2024 4:24 AM [facility] Comment:Supplemental ranges: <140 mg/dL before meals <180 mg/dL all other times of the day. Blood CAPILLARY BLOOD / Unknown 06/10/2024 4:23 AM EST 06/10/2024 4:24 AM EST Melida Valdes MD POINT OF CARE TEST O RDERABLES [facility] [place] [address] * (ABNORMAL) CBC (with Diff) (06/10/2024 1:55 AM EST) [facility] White Blood Cell 9.00 4.00 - 9.50 x10(3)/mc L 06/10/2024 2:14 AM [facility] Red Blood Cell 5.03 4.58 - 5.54 x10(6)/mc L 06/10/2024 2:14 AM [facility] Hemoglobin 14.9 13.7 - 16.5 g/dL 06/10/2024 2:14 AM [facility] Hematocrit 46.4 40.5 - 48.5 % 06/10/2024 2:14 AM [facility] Mean Cell Volume 92.2 82.9 - 93.1 fL 06/10/2024 2:14 AM [facility] Mean Cell Hemoglobin 29.6 27.5 - 32.1 pg 06/10/2024 2:14 AM [facility] Mean Cell Hemoglobin Concentration 32.1 32.0 - 35.7 g/dL 06/10/2024 2:14 AM [facility] Platelet 191 145 - 357 x10(3)/mc L 06/10/2024 2:14 AM [facility] Mean Platelet Volume 9.7 7.6 - 12.9 fL 06/10/2024 2:14 AM [facility] RDW Standard Deviation 47.4(H) 36.0 - 45.0 fL 06/10/2024 2:14 AM [facility] RDW coefficient of variation 14.1(H) 11.4 - 13.8 % 06/10/2024 2:14 AM [facility] NRBC% auto 0.0 % 06/10/2024 2:14 AM [facility] NRBC Absolute <0.01 <0.01 x10(3)/mc L 06/10/2024 2:14 AM [facility] Neutrophil % 48.7 % 06/10/2024 2:14 AM [facility] Neutrophil Absolute (ANC) - Automated 4.39 1.70 - 6.10 x10(3)/mc L 06/10/2024 2:14 AM [facility] Lymph % 34.9 % 06/10/2024 2:14 AM [facility] Lymph Absolute 3.14 0.90 - 3.20 x10(3)/mc L 06/10/2024 2:14 AM [facility] Monocyte % 11.2 % 06/10/2024 2:14 AM [facility] Monocyte Absolute 1.01(H) 0.30 - 0.90 x10(3)/mc L 06/10/2024 2:14 AM [facility] Eos % 3.6 % 06/10/2024 2:14 AM [facility] Eos Absolute 0.32 0.00 - 0.40 x10(3)/mc L 06/10/2024 2:14 AM [facility] Basophil % 1.0 % 06/10/2024 2:14 AM [facility] Baso Absolute 0.09 0.00 - 0.10 x10(3)/mc L 06/10/2024 2:14 AM [facility] Immature Gran % 0.6 % 2:14 AM [facility] Immature Gran Absolute 0.05(H) 0.00 - 0.04 x10(3)/mc L 06/10/2024 2:14 AM [facility] Blood VENOUS BLOOD SPECIMEN / Unknown Venipuncture / Unknown 06/10/2024 1:55 AM EST 06/10/2024 2:05 AM EST Shahnaz Scanlon MD HEMATOLOGY ORDERABLE S Performing Organization Address [facility] Co de Phone Number [facility] [place] [address] * Magnesium (06/10/2024 1:55 AM EST) Magnesium 0.83 0.69 - 1.07 mMol/L 06/10/2024 2:37 AM [facility] Blood VENOUS BLOOD SPECIMEN / Unknown Venipuncture / Unknown 06/10/2024 1:55 AM EST 06/10/2024 2:05 AM EST Shahnaz Scanlon MD CHEMISTRY ORDERABLES Performing Organization Address [facility] Co de Phone Number [facility] [place] [place] [address] * (ABNORMAL) Basic Metabolic Panel (06/10/2024 1:55 AM EST) Glucose 140 65 - 199 mg/dL 06/10/2024 2:37 AM [facility] Comment:Glucose Concentratio n >=200 mg/dL plus symptoms is consistent with Diabetes Mellitus. Blood Urea Nitrogen 24(H) 10 - 20 mg/dL 06/10/2024 2:37 AM [facility] Creatinine 1.06 0.80 - 1.50 mg/dL 06/10/2024 2:37 AM [facility] Sodium 138 135 - 145 mMol/L 06/10/2024 2:37 AM [facility] Potassium 4.1 3.5 - 5.0 mMol/L 06/10/2024 2:37 AM EST [facility] Chloride 100 98 - 107 mMol/L 06/10/2024 2:37 AM [facility] Carbon Dioxide 25 22 - 31 mMol/L 06/10/2024 2:37 AM [facility] Anion Gap 13 5 - 15 mMol/L 06/10/2024 2:37 AM [facility] Calcium 9.5 8.5 - 10.5 mg/dL 06/10/2024 2:37 AM [facility] Est Glomerular Filtration Rate - [...] CHEMISTRY ORDERABLES [facility] [place] [address] * Heparin (unfractionated) Level (06/10/2024 1:54 AM [...] MD HEMATOLOGY ORDERABLE S Performing Organization Address [facility] Co de Phone Number [facility] [place] [address] * POC, GLUCOSE (06/10/2024 12:05 AM EST) Glucometer, POC 125 65 - 199 mg/dL 06/10/2024 12:05 AM EST [facility] Comment:Supplemental ranges: <140 mg/dL before meals <180 mg/dL all other times of the day. Blood CAPILLARY BLOOD / Unknown 06/10/2024 12:05 AM EST 06/10/2024 12:05 AM EST Melida Valdes MD POINT OF CARE TEST O RDERABLES Performing Organization Address [facility] Co de Phone Number [facility] [place] [address] * POC, GLUCOSE (06/09/2024 8:36 PM EST) Glucometer, POC 197 65 - 199 mg/dL 06/09/2024 8:36 PM EST [facility] Comment:Supplemental ranges: <140 mg/dL before meals <180 mg/dL all other times of the day. Blood CAPILLARY BLOOD / Unknown 06/09/2024 8:36 PM EST 06/09/2024 8:36 PM EST Melida Valdes MD POINT OF CARE TEST O NIKA Performing Organization Address [facility] Co de Phone Number [facility] [place] [address] * POC, GLUCOSE (06/09/2024 5:27 PM EST) Glucometer, POC 174 65 - 199 mg/dL 06/09/2024 5:28 PM EST [facility] Comment:Supplemental ranges: <140 mg/dL before meals <180 mg/dL all other times of the day. Blood CAPILLARY BLOOD / Unknown 06/09/2024 5:27 PM EST 06/09/2024 5:28 PM EST Melida Valdes MD POINT OF CARE TEST O NIKA Performing Organization Address [facility] Phone Number [facility] [place] [address] * (ABNORMAL) POC, GLUCOSE (06/09/2024 11:52 AM [...] TEST O NIKA Performing Organization Address [facility] Co de Phone Number [facility] [place] [address] * Potassium (06/09/2024 8:25 AM EST) Potassium 4.6 3.5 - 5.0 mMol/L 06/09/2024 10:09 AM EST [facility] Blood VENOUS BLOOD SPECIMEN / Unknown Venipuncture / Unknown 06/09/2024 8:25 AM EST 06/09/2024 8:42 AM EST Shahnaz Scanlon MD CHEMISTRY ORDERABLES Performing Organization Address [facility] Co de Phone Number [facility] [place] [address] * (ABNORMAL) POC, GLUCOSE (06/09/2024 8:10 AM [...] TEST O NIKA Performing Organization Address [facility] Co de Phone Number [facility] [place] [address] * POC, GLUCOSE (06/09/2024 4:40 AM EST) Glucometer, POC 131 65 - 199 mg/dL 06/09/2024 4:40 AM EST [facility] Comment:Supplemental ranges: <140 mg/dL before meals <180 mg/dL all other times of the day. Blood CAPILLARY BLOOD / Unknown 06/09/2024 4:40 AM EST 06/09/2024 4:41 AM EST Melida Valdes MD POINT OF CARE TEST O NIKA Performing Organization Address [facility] Co de Phone Number [facility] [place] [address] * Heparin (unfractionated) Level (06/09/2024 2:12 AM EST) UF Heparin 0.55 IU/mL 06/09/2024 2:33 AM [facility] Comment: Heparin (anti-Xa) levels should [...] ORDERABLE S [facility] [place] [phone] * (ABNORMAL) CBC (with Diff) (06/09/2024 2:12 AM EST) White Blood Cell 9.80(H) 4.00 - 9.50 x10(3)/mc L 06/09/2024 2:44 AM EST [facility] Red Blood Cell 5.18 4.58 - 5.54 x10(6)/mc L 06/09/2024 2:44 AM [facility] Hemoglobin 15.5 13.7 - 16.5 g/dL 06/09/2024 2:44 AM [facility] Hematocrit 47.4 40.5 - 48.5 % 06/09/2024 2:44 AM [facility] Mean Cell Volume 91.5 82.9 - 93.1 fL 06/09/2024 2:44 AM EST [facility] Mean Cell Hemoglobin 29.9 27.5 - 32.1 pg 06/09/2024 2:44 AM [facility] Mean Cell Hemoglobin Concentration 32.7 32.0 - 35.7 g/dL 06/09/2024 2:44 AM [facility] Platelet 205 145 - 357 x10(3)/mc L 06/09/2024 2:44 AM [facility] Mean Platelet Volume 9.7 7.6 - 12.9 fL 06/09/2024 2:44 AM [facility] RDW Standard Deviation 47.7(H) 36.0 - 45.0 fL 06/09/2024 2:44 AM [facility] RDW coefficient of variation 14.1(H) 11.4 - 13.8 % 06/09/2024 2:44 AM [facility] NRBC% auto 0.0 % 06/09/2024 2:44 AM [facility] NRBC Absolute <0.01 <0.01 x10(3)/mc L 06/09/2024 2:44 AM [facility] Neutrophil % 53.0 % 06/09/2024 2:44 AM [facility] Neutrophil Absolute (ANC) - Automated 5.19 1.70 - 6.10 x10(3)/mc L 06/09/2024 2:44 AM [facility] Lymph % 31.6 % 06/09/2024 2:44 AM [facility] Lymph Absolute 3.10 0.90 - 3.20 x10(3)/mc L 06/09/2024 2:44 AM [facility] Monocyte % 11.0 % 06/09/2024 2:44 AM [facility] Monocyte Absolute 1.08(H) 0.30 - 0.90 x10(3)/mc L 06/09/2024 2:44 AM [facility] Eos % 2.9 % 06/09/2024 2:44 AM [facility] Eos Absolute 0.28 0.00 - 0.40 x10(3)/mc L 06/09/2024 2:44 AM EST [facility] Basophil % 0.9 % 06/09/2024 2:44 AM EST [facility] Baso Absolute 0.09 0.00 - 0.10 x10(3)/mc L 06/09/2024 2:44 AM EST [facility] Immature Gran % 0.6 % 2:44 AM EST [facility] Immature Gran Absolute 0.06(H) 0.00 - 0.04 x10(3)/mc L 06/09/2024 2:44 AM EST [facility] Blood VENOUS BLOOD SPECIMEN / Unknown Venipuncture / Unknown 06/09/2024 2:12 AM EST 06/09/2024 2:21 AM EST Shahnaz Scanlon MD HEMATOLOGY ORDERABLE S [facility] [place] [address] * Magnesium (06/09/2024 2:12 AM EST) Magnesium 0.83 0.69 - 1.07 mMol/L 06/09/2024 2:52 AM EST [facility] Blood VENOUS BLOOD SPECIMEN / Unknown Venipuncture / Unknown 06/09/2024 2:12 AM EST 06/09/2024 2:22 AM EST Shahnaz Scanlon MD CHEMISTRY ORDERABLES [facility] [place] [address] * (ABNORMAL) Basic Metabolic Panel (06/09/2024 2:12 AM EST) Glucose 147 65 - 199 mg/dL 06/09/2024 2:52 AM EST [facility] Comment:Glucose Concentratio n >=200 mg/dL plus symptoms is consistent with Diabetes Mellitus. Blood Urea Nitrogen 24(H) 10 - 20 mg/dL 06/09/2024 2:52 AM [facility] Creatinine 1.11 0.80 - 1.50 mg/dL 06/09/2024 2:52 AM [facility] Sodium 136 135 - 145 mMol/L 06/09/2024 2:52 AM [facility] Potassium 3.9 3.5 - 5.0 mMol/L 06/09/2024 2:52 AM [facility] Chloride 98 98 - 107 mMol/L 06/09/2024 2:52 AM [facility] Carbon Dioxide 27 22 - 31 mMol/L 06/09/2024 2:52 AM [facility] Anion Gap 11 5 - 15 mMol/L 06/09/2024 2:52 AM [facility] Calcium 9.7 8.5 - 10.5 mg/dL 06/09/2024 2:52 AM [facility] Est Glomerular Filtration Rate - Male 73 mL/min/1. 73 m?? 06/09/2024 2:52 AM [facility] Comment: This patient's estimated GFR [...] CHEMISTRY ORDERABLES [facility] [address] * POC, GLUCOSE (06/09/2024 12:34 AM EST) Glucometer, POC 186 65 - 199 mg/dL 06/09/2024 12:34 AM EST [facility] Comment:Supplemental ranges: <140 mg/dL before meals <180 mg/dL all other times of the day. Blood CAPILLARY BLOOD / Unknown 06/09/2024 12:34 AM EST 06/09/2024 12:34 AM EST Melida Valdes MD POINT OF CARE TEST O NIKA Performing Organization Address City/[facility]/ZIP Co de Phone Number [facility] [address] * POC, GLUCOSE (06/08/2024 8:27 PM EST) [...] O NIKA [facility] [place] [address] * POC, GLUCOSE (06/08/2024 4:16 PM EST) Glucometer, POC 159 65 - 199 mg/dL 06/08/2024 4:16 PM EST [facility] Comment:Supplemental ranges: <140 mg/dL before meals <180 mg/dL all other times of the day. Blood CAPILLARY BLOOD / Unknown 06/08/2024 4:16 PM EST 06/08/2024 4:16 PM EST Melida Valdes MD POINT OF CARE TEST O RDERABLES Performing Organization Address [facility] Co de Phone Number [facility] [place] [address] * (ABNORMAL) POC, GLUCOSE (06/08/2024 12:35 PM EST) Glucometer, POC 226(H) 65 - 199 mg/dL 06/08/2024 12:35 PM EST [facility] Comment:Supplemental ranges: <140 mg/dL before meals <180 mg/dL all other times of the day. Blood CAPILLARY BLOOD / Unknown 06/08/2024 12:35 PM EST 06/08/2024 12:35 PM EST Melida Valdes MD POINT OF CARE TEST O NIAK Performing Organization Address [facility] Co de Phone Number [facility] [place] [address] * POC, GLUCOSE (06/08/2024 8:10 AM EST) Glucometer, POC 190 65 - 199 mg/dL 06/08/2024 8:14 AM EST [facility] Comment:Supplemental ranges: <140 mg/dL before meals <180 mg/dL all other times of the day. Blood CAPILLARY BLOOD / Unknown 06/08/2024 8:10 AM EST 06/08/2024 8:14 AM EST Melida Valdes MD POINT OF CARE TEST O NIKA Performing Organization Address [facility] Co de Phone Number [facility] [place] [address] * POC, GLUCOSE (06/08/2024 4:09 AM EST) Glucometer, POC 151 65 - 199 mg/dL 06/08/2024 4:10 AM EST [facility] Comment:Supplemental ranges: <140 mg/dL before meals <180 mg/dL all other times of the day. Blood CAPILLARY BLOOD / Unknown 06/08/2024 4:09 AM EST 06/08/2024 4:10 AM EST Melida Valdes MD POINT OF CARE TEST O RDERABLES Performing Organization Address [facility] Co de Phone Number [facility] [place] [address] * Heparin (unfractionated) Level (06/08/2024 3:21 AM EST) UF Heparin 0.46 IU/mL 06/08/2024 3:41 AM EST [facility] [...] MD HEMATOLOGY ORDERABLE S Performing Organization Address City/[facility]/ZIP Co de Phone Number [facility] [place] [address] * (ABNORMAL) CBC (with Diff) (06/08/2024 3:21 AM EST) White Blood Cell 9.92(H) 4.00 - 9.50 x10(3)/mc L 06/08/2024 3:34 AM EST [facility] Red Blood Cell 5.09 4.58 - 5.54 x10(6)/mc L 06/08/2024 3:34 AM [facility] Hemoglobin 15.1 13.7 - 16.5 g/dL 06/08/2024 3:34 AM [facility] Hematocrit 46.7 40.5 - 48.5 % 06/08/2024 3:34 AM [facility] Mean Cell Volume 91.7 82.9 - 93.1 fL 06/08/2024 3:34 AM [facility] Mean Cell Hemoglobin 29.7 27.5 - 32.1 pg 06/08/2024 3:34 AM [facility] Mean Cell Hemoglobin Concentration 32.3 32.0 - 35.7 g/dL 06/08/2024 3:34 AM [facility] Platelet 203 145 - 357 x10(3)/mc L 06/08/2024 3:34 AM [facility] Mean Platelet Volume 9.4 7.6 - 12.9 fL 06/08/2024 3:34 AM [facility] RDW Standard Deviation 46.9(H) 36.0 - 45.0 fL 06/08/2024 3:34 AM [facility] RDW coefficient of variation 13.8 11.4 - 13.8 % 06/08/2024 3:34 AM [facility] NRBC% auto 0.0 % 06/08/2024 3:34 AM [facility] NRBC Absolute <0.01 <0.01 x10(3)/mc L 06/08/2024 3:34 AM [facility] Neutrophil % 56.8 % 06/08/2024 3:34 AM [facility] Neutrophil Absolute (ANC) - Automated 5.63 1.70 - 6.10 x10(3)/mc L 06/08/2024 3:34 AM [facility] Lymph % 27.3 % 06/08/2024 3:34 AM [facility] Lymph Absolute 2.71 0.90 - 3.20 x10(3)/mc L 06/08/2024 3:34 AM [facility] Monocyte % 11.2 % 06/08/2024 3:34 AM [facility] Monocyte Absolute 1.11(H) 0.30 - 0.90 x10(3)/mc L 06/08/2024 3:34 AM [facility] Eos % 3.4 % 06/08/2024 3:34 AM [facility] Eos Absolute 0.34 0.00 - 0.40 x10(3)/mc L 06/08/2024 3:34 AM [facility] Basophil % 0.8 % 06/08/2024 3:34 AM [facility] Baso Absolute 0.08 0.00 - 0.10 x10(3)/mc L 06/08/2024 3:34 AM [facility] Immature Gran % 0.5 % 3:34 AM [facility] Immature Gran Absolute 0.05(H) 0.00 - 0.04 x10(3)/mc L 06/08/2024 3:34 AM [facility] Blood VENOUS BLOOD SPECIMEN / Unknown Venipuncture / Unknown 06/08/2024 3:21 AM EST 06/08/2024 3:27 AM EST Shahnaz Scanlon MD HEMATOLOGY ORDERABLE S Performing Organization Address City/State/[facility] Co de Phone Number [facility] [place] [address] * Magnesium (06/08/2024 3:21 AM EST) Magnesium 0.84 0.69 - 1.07 mMol/L 06/08/2024 3:59 AM [facility] Blood VENOUS BLOOD SPECIMEN / Unknown Venipuncture / Unknown 06/08/2024 3:21 AM EST 06/08/2024 3:27 AM EST Shahnaz Scanlon MD CHEMISTRY ORDERABLES [facility] [place] [address] * (ABNORMAL) Basic Metabolic Panel (06/08/2024 3:21 AM EST) Glucose 173 65 - 199 mg/dL 06/08/2024 3:59 AM [facility] Comment:Glucose Concentratio n >=200 mg/dL plus symptoms is consistent with Diabetes Mellitus. Blood Urea Nitrogen 25(H) 10 - 20 mg/dL 06/08/2024 3:59 AM [facility] Creatinine 1.09 0.80 - 1.50 mg/dL 06/08/2024 3:59 AM [facility] Sodium 135 135 - 145 mMol/L 06/08/2024 3:59 AM [facility] Potassium 4.2 3.5 - 5.0 mMol/L 06/08/2024 3:59 AM [facility] Chloride 98 98 - 107 mMol/L 06/08/2024 3:59 AM [facility] Carbon Dioxide 25 22 - 31 mMol/L 06/08/2024 3:59 AM [facility] Anion Gap 12 5 - 15 mMol/L 06/08/2024 3:59 AM [facility] Calcium 9.4 8.5 - 10.5 mg/dL 06/08/2024 3:59 AM [facility] Est Glomerular Filtration Rate - Male 74 mL/min/1. 73 m?? 06/08/2024 3:59 AM [facility] Comment: This patient's estimated GFR [...] Scanlon MD CHEMISTRY ORDERABLES Performing Organization Address City/[facility]/ZIP Co de Phone Number [facility] [address] * POC, GLUCOSE (06/07/2024 11:57 PM EST) Glucometer, POC 188 65 - 199 mg/dL 06/07/2024 11:57 PM EST [facility] Comment:Supplemental ranges: <140 mg/dL before meals <180 mg/dL all other times of the day. Blood CAPILLARY BLOOD / Unknown 06/07/2024 11:57 PM EST 06/07/2024 11:58 PM EST Melida Valdes MD POINT OF CARE TEST O RDERABLES Performing Organization Address [facility] Co de Phone Number [facility] [place] [address] * POC, GLUCOSE (06/07/2024 8:05 PM EST) [...] Organization Address City/[facility]/ZIP Co de Phone Number [facility] [place] [address] * Potassium (06/07/2024 5:22 PM EST) Potassium 4.6 3.5 - 5.0 mMol/L 06/07/2024 5:59 PM EST [facility] Blood VENOUS BLOOD SPECIMEN / Unknown Venipuncture / Unknown 06/07/2024 5:22 PM EST 06/07/2024 5:26 PM EST Shahnaz Scanlon MD CHEMISTRY ORDERABLES Performing Organization Address [facility] Co de Phone Number [facility] [address] * POC, GLUCOSE (06/07/2024 4:31 PM EST) Pathologist [facility] Glucometer, POC 174 65 - 199 mg/dL 06/07/2024 4:34 PM EST [facility] Comment:Supplemental ranges: <140 mg/dL before meals <180 mg/dL all other times of the day. Blood CAPILLARY BLOOD / Unknown 06/07/2024 4:31 PM EST 06/07/2024 4:34 PM EST Melida Valdes MD POINT OF CARE TEST O RDERABLES Performing Organization Address [facility] Co de Phone Number [facility] [place] [address] * MRI Cardiac Morphology Function wwo Contrast (06/07/2024 1:10 PM EST) WORKSTATION ID [id number] RAD Anatomical Region Laterality Modality Magnetic Resonan [...] - Mildly dilated left ventricle size with [id number] decreased LV systolic function. ??LV ejection fraction [...] who have questions please contact the health manager medicare marketing that requested your imaging first. ? Electronically signed by: Kriss Alonzo MD, [facility] ([phone]), at 06/07/2024 2:41 PM Narrative 06/07/2024 2:41 [...] VENTRICLE: Mildly dilated left ventricle size with gjbbkppr-ix-bxaomogi decreased LV systolic function. ??LV ejection fraction [...] VENTRICLE: Mildly dilated left ventricle size with iurezedd-em-bchapaio decreasedLV systolic function. LV ejection fraction is [...] - Mildly dilated left ventricle size with zjnpyqzi-xu-nvblpgyx decreasedLV systolic function. LV ejection fraction is [...] patients who have questions please contactthe health manager medicare marketing that requested your imaging first. Electronically signed by: Kriss Alonzo MD, [facility]([phone]), at 06/07/2024 2:41 PM Delroy Fofana MD [...] TEST O NIKA Performing Organization Address [facility]/ZIP Co de Phone Number [facility] [place] [address] * (ABNORMAL) POC, GLUCOSE (06/07/2024 11:03 AM EST) Glucometer, POC 250(H) 65 - 199 mg/dL 06/07/2024 11:04 AM EST [facility] Comment:Supplemental ranges: <140 mg/dL before meals <180 mg/dL all other times of the day. Blood CAPILLARY BLOOD / Unknown 06/07/2024 11:03 AM EST 06/07/2024 11:04 AM EST Melida Valdes MD POINT OF CARE TEST O NIKA Performing Organization Address City/[facility]/ZIP Co de Phone Number [facility] [place] [address] * Potassium (06/07/2024 9:44 AM EST) Pathologist [facility] Potassium 4.7 3.5 - 5.0 mMol/L 06/07/2024 10:23 AM EST [facility] Blood VENOUS BLOOD SPECIMEN / Unknown Venipuncture / Unknown 06/07/2024 9:44 AM EST 06/07/2024 9:57 AM EST Shahnaz Scanlon MD CHEMISTRY ORDERABLES Performing Organization Address City/[facility]/ZIP Co de Phone Number [facility] [place] [address] * POC, GLUCOSE (06/07/2024 7:45 AM EST) [facility] Glucometer, POC 175 65 - 199 mg/dL 06/07/2024 7:45 AM EST [facility] Comment:Supplemental ranges: <140 mg/dL before meals <180 mg/dL all other times of the day. Blood CAPILLARY BLOOD / Unknown 06/07/2024 7:45 AM EST 06/07/2024 7:46 AM EST Melida Valdes MD POINT OF CARE TEST O RDERABLES Performing Organization Address [facility]/ZIP Co de Phone Number [facility] [place] [address] * XR Chest PA & Lateral (Generic) (06/07/2024 7:03 AM EST) Pathologist [facility] WORKSTATION ID [id number] DH RAD Anatomical Region Laterality Modality Chest [...] who have questions please contact the health manager medicare marketing that requested your imaging first. ? Electronically signed by: Stuart Aponte MD, [facility] ??([phone]), at 06/07/2024 10:45 AM Narrative 06/07/2024 10:45 [...] patients who have questions please contactthe health manager medicare marketing that requested your imaging first. Electronically signed by: Stuart Aponte MD, [facility]([phone]), at 06/07/2024 10:45 AM Shahnaz Scanlon MD [...] TEST O RDERABLES Performing Organization Address City/State/[facility] Co de Phone Number [facility] [place] [address] * Heparin (unfractionated) Level (06/07/2024 2:41 AM [...] ORDERABLE S [facility] [place] [address] * (ABNORMAL) CBC (with Diff) (06/07/2024 2:41 AM EST) White Blood Cell 10.06(H) 4.00 - 9.50 x10(3)/mc L 06/07/2024 2:58 AM [facility] Red Blood Cell 5.02 4.58 - 5.54 x10(6)/mc L 06/07/2024 2:58 AM [facility] Hemoglobin 14.8 13.7 - 16.5 g/dL 06/07/2024 2:58 AM [facility] Hematocrit 46.2 40.5 - 48.5 % 06/07/2024 2:58 AM [facility] Mean Cell Volume 92.0 82.9 - 93.1 fL 06/07/2024 2:58 AM [facility] Mean Cell Hemoglobin 29.5 27.5 - 32.1 pg 06/07/2024 2:58 AM [facility] Mean Cell Hemoglobin Concentration 32.0 32.0 - 35.7 g/dL 06/07/2024 2:58 AM [facility] Platelet 202 145 - 357 x10(3)/mc L 06/07/2024 2:58 AM [facility] Mean Platelet Volume 9.6 7.6 - 12.9 fL 06/07/2024 2:58 AM [facility] RDW Standard Deviation 46.3(H) 36.0 - 45.0 fL 06/07/2024 2:58 AM [facility] RDW coefficient of variation 13.8 11.4 - 13.8 % 06/07/2024 2:58 AM [facility] NRBC% auto 0.0 % 06/07/2024 2:58 AM [facility] NRBC Absolute <0.01 <0.01 x10(3)/mc L 06/07/2024 2:58 AM [facility] Neutrophil % 55.9 % 06/07/2024 2:58 AM [facility] Neutrophil Absolute (ANC) - Automated 5.62 1.70 - 6.10 x10(3)/mc L 06/07/2024 2:58 AM [facility] Lymph % 28.3 % 06/07/2024 2:58 AM [facility] Lymph Absolute 2.85 0.90 - 3.20 x10(3)/mc L 06/07/2024 2:58 AM [facility] Monocyte % 10.8 % 06/07/2024 2:58 AM [facility] Monocyte Absolute 1.09(H) 0.30 - 0.90 x10(3)/mc L 06/07/2024 2:58 AM [facility] Eos % 3.6 % 06/07/2024 2:58 AM [facility] Eos Absolute 0.36 0.00 - 0.40 x10(3)/mc L 06/07/2024 2:58 AM [facility] Basophil % 0.8 % 06/07/2024 2:58 AM [facility] Baso Absolute 0.08 0.00 - 0.10 x10(3)/mc L 06/07/2024 2:58 AM [facility] Immature Gran % 0.6 % 2:58 AM [facility] Immature Gran Absolute 0.06(H) 0.00 - 0.04 x10(3)/mc L 06/07/2024 2:58 AM [facility] Blood VENOUS BLOOD SPECIMEN / Unknown Venipuncture / Unknown 06/07/2024 2:41 AM EST 06/07/2024 2:52 AM EST Shahnaz Scanlon MD HEMATOLOGY ORDERABLE S [facility] [place] [address] * Magnesium (06/07/2024 2:41 AM EST) Magnesium 0.92 0.69 - 1.07 mMol/L 06/07/2024 3:25 AM [facility] Blood VENOUS BLOOD SPECIMEN / Unknown Venipuncture / Unknown 06/07/2024 2:41 AM EST 06/07/2024 2:51 AM EST Shahnaz Scanlon MD CHEMISTRY ORDERABLES [facility] [place] [address] * (ABNORMAL) Basic Metabolic Panel (06/07/2024 2:41 AM EST) Pathologist [facility] Glucose 140 65 - 199 mg/dL 06/07/2024 3:25 AM [facility] Comment:Glucose Concentratio n >=200 mg/dL plus symptoms is consistent with Diabetes Mellitus. Blood Urea Nitrogen 26(H) 10 - 20 mg/dL 06/07/2024 3:25 AM [facility] Creatinine 1.06 0.80 - 1.50 mg/dL 06/07/2024 3:25 AM [facility] Sodium 136 135 - 145 mMol/L 06/07/2024 3:25 AM [facility] Potassium 3.8 3.5 - 5.0 mMol/L 06/07/2024 3:25 AM [facility] Chloride 98 98 - 107 mMol/L 06/07/2024 3:25 AM [facility] Carbon Dioxide 28 22 - 31 mMol/L 06/07/2024 3:25 AM [facility] Anion Gap 10 5 - 15 mMol/L 06/07/2024 3:25 AM [facility] Calcium 9.4 8.5 - 10.5 mg/dL 06/07/2024 3:25 AM [facility] Est Glomerular Filtration Rate - [...] Scanlon MD CHEMISTRY ORDERABLES Performing Organization Address City/[facility]/ZIP Co de Phone Number [facility] [place] [address] * POC, GLUCOSE (06/07/2024 12:08 AM EST) [...] Organization Address City/[facility]/ZIP Co de Phone Number [facility] [place] [address] * POC, GLUCOSE (06/06/2024 8:18 PM EST) [...] Organization Address City/[facility]/ZIP Co de Phone Number [facility] [place] [address] * POC, GLUCOSE (06/06/2024 3:39 PM EST) Glucometer, POC 147 65 - 199 mg/dL 06/06/2024 3:40 PM EST [facility] Comment:Supplemental ranges: <140 mg/dL before meals <180 mg/dL all other times of the day. Blood CAPILLARY BLOOD / Unknown 06/06/2024 3:39 PM EST 06/06/2024 3:40 PM EST Melida Valdes MD POINT OF CARE TEST O NIKA Performing Organization Address [facility] Co de Phone Number [facility] [place] [address] * Potassium (06/06/2024 2:37 PM EST) Potassium 4.3 3.5 - 5.0 mMol/L 06/06/2024 3:01 PM EST [facility] Blood VENOUS BLOOD SPECIMEN / Unknown Venipuncture / Unknown 06/06/2024 2:37 PM EST 06/06/2024 2:42 PM EST Shahnaz Scanlon MD CHEMISTRY ORDERABLES Performing Organization Address [facility] Co de Phone Number [facility] [place] [address] * (ABNORMAL) POC, GLUCOSE (06/06/2024 1:39 PM [...] Organization Address City/[facility]/ZIP Co de Phone Number [facility] [place] [place] [address] * (ABNORMAL) POC, GLUCOSE (06/06/2024 11:34 AM [...] Organization Address City/[facility]/ZIP Co de Phone Number [facility] [place] [address] * Potassium (06/06/2024 10:17 AM EST) Potassium 4.3 3.5 - 5.0 mMol/L 06/06/2024 10:46 AM EST [facility] Blood VENOUS BLOOD SPECIMEN / Unknown Venipuncture / Unknown 06/06/2024 10:17 AM EST 06/06/2024 10:22 AM EST Shahnaz Scanlon MD CHEMISTRY ORDERABLES Performing Organization Address City/[facility]/ZIP Co de Phone Number [facility] [place] [address] * POC, GLUCOSE (06/06/2024 7:57 AM EST) Glucometer, POC 195 65 - 199 mg/dL 06/06/2024 8:03 AM EST [facility] Comment:Supplemental ranges: <140 mg/dL before meals <180 mg/dL all other times of the day. Blood CAPILLARY BLOOD / Unknown 06/06/2024 7:57 AM EST 06/06/2024 8:03 AM EST Melida Valdes MD POINT OF CARE TEST O NIKA Performing Organization Address [facility] Co de Phone Number [facility] [place] [address] * POC, GLUCOSE (06/06/2024 6:53 AM EST) Glucometer, POC 187 65 - 199 mg/dL 06/06/2024 6:53 AM EST [facility] Comment:Supplemental ranges: <140 mg/dL before meals <180 mg/dL all other times of the day. Blood CAPILLARY BLOOD / Unknown 06/06/2024 6:53 AM EST 06/06/2024 6:54 AM EST Melida Valdes MD POINT OF CARE TEST Abimael MAHER Performing Organization Address [facility] de Phone Number [facility] [place] [address] * (ABNORMAL) Hemoglobin A1c (06/06/2024 3:33 AM [...] blood cell turnover may not be tax representative of glycemic control. Reference Interval: 4.3 - 5.6% 5.7 - 6.4%: Consistent with prediabetes >=6.5%: Consistent with diagnosis of diabetes mellitus Estimated Average Glucose 157 mg/dL 06/06/2024 1:01 PM EST [facility] Blood VENOUS BLOOD SPECIMEN / Unknown Venipuncture / Unknown 06/06/2024 3:33 AM EST 06/06/2024 3:48 AM EST Alejandra Baumann APRN CHEMISTRY ORDERAB LES Performing Organization Address [facility] Co de Phone Number [facility] [place] [address] * Heparin (unfractionated) Level (06/06/2024 3:33 AM [...] MD HEMATOLOGY ORDERABLE S Performing Organization Address [facility] Co de Phone Number [facility] [place] [address] * (ABNORMAL) CBC (with Diff) (06/06/2024 3:33 AM [facility]) [facility] White Blood Cell 9.81(H) 4.00 - 9.50 x10(3)/mc L 06/06/2024 3:54 AM [facility] Red Blood Cell 4.91 4.58 - 5.54 x10(6)/mc L 06/06/2024 3:54 AM [facility] Hemoglobin 14.6 13.7 - 16.5 g/dL 06/06/2024 3:54 AM [facility] Hematocrit 45.4 40.5 - 48.5 % 06/06/2024 3:54 AM [facility] Mean Cell Volume 92.5 82.9 - 93.1 fL 06/06/2024 3:54 AM [facility] Mean Cell Hemoglobin 29.7 27.5 - 32.1 pg 06/06/2024 3:54 AM [facility] Mean Cell Hemoglobin Concentration 32.2 32.0 - 35.7 g/dL 06/06/2024 3:54 AM [facility] Platelet 199 145 - 357 x10(3)/mc L 06/06/2024 3:54 AM [facility] Mean Platelet Volume 9.5 7.6 - 12.9 fL 06/06/2024 3:54 AM [facility] RDW Standard Deviation 47.2(H) 36.0 - 45.0 fL 06/06/2024 3:54 AM [facility] RDW coefficient of variation 13.9(H) 11.4 - 13.8 % 06/06/2024 3:54 AM [facility] NRBC% auto 0.0 % 06/06/2024 3:54 AM [facility] NRBC Absolute <0.01 <0.01 x10(3)/mc L 06/06/2024 3:54 AM [facility] Neutrophil % 56.8 % 06/06/2024 3:54 AM [facility] Neutrophil Absolute (ANC) - Automated 5.57 1.70 - 6.10 x10(3)/mc L 06/06/2024 3:54 AM [facility] Lymph % 27.6 % 06/06/2024 3:54 AM [facility] Lymph Absolute 2.71 0.90 - 3.20 x10(3)/mc L 06/06/2024 3:54 AM [facility] Monocyte % 11.1 % 06/06/2024 3:54 AM [facility] Monocyte Absolute 1.09(H) 0.30 - 0.90 x10(3)/mc L 06/06/2024 3:54 AM [facility] Eos % 3.0 % 06/06/2024 3:54 AM [facility] Eos Absolute 0.29 0.00 - 0.40 x10(3)/mc L 06/06/2024 3:54 AM [facility] Basophil % 0.9 % 06/06/2024 3:54 AM [facility] Baso Absolute 0.09 0.00 - 0.10 x10(3)/mc L 06/06/2024 3:54 AM [facility] Immature Gran % 0.6 % 3:54 AM [facility] Immature Gran Absolute 0.06(H) 0.00 - 0.04 x10(3)/mc L 06/06/2024 3:54 AM [facility] Blood VENOUS BLOOD SPECIMEN / Unknown Venipuncture / Unknown 06/06/2024 3:33 AM EST 06/06/2024 3:48 AM EST Shahnaz Scanlon MD HEMATOLOGY ORDERABLE S [facility] [place] [address] * Magnesium (06/06/2024 3:33 AM EST) Magnesium 0.92 0.69 - 1.07 mMol/L 06/06/2024 4:17 AM [facility] Blood VENOUS BLOOD SPECIMEN / Unknown Venipuncture / Unknown 06/06/2024 3:33 AM EST 06/06/2024 3:47 AM EST Shahnaz Scanlon MD CHEMISTRY ORDERABLES [facility] [place] [address] * (ABNORMAL) Basic Metabolic Panel (06/06/2024 3:33 AM EST) Glucose 190 65 - 199 mg/dL 06/06/2024 4:17 AM [facility] Comment:Glucose Concentratio n >=200 mg/dL plus symptoms is consistent with Diabetes Mellitus. Blood Urea Nitrogen 27(H) 10 - 20 mg/dL 06/06/2024 4:17 AM [facility] Creatinine 1.12 0.80 - 1.50 mg/dL 06/06/2024 4:17 AM [facility] Sodium 136 135 - 145 mMol/L 06/06/2024 4:17 AM [facility] Potassium 4.0 3.5 - 5.0 mMol/L 06/06/2024 4:17 AM [facility] Chloride 97(L) 98 - 107 mMol/L 06/06/2024 4:17 AM [facility] Carbon Dioxide 26 22 - 31 mMol/L 06/06/2024 4:17 AM [facility] Anion Gap 13 5 - 15 mMol/L 06/06/2024 4:17 AM [facility] Calcium 9.1 8.5 - 10.5 mg/dL 06/06/2024 4:17 AM [facility] Est Glomerular Filtration Rate - Male 72 mL/min/1. 73 m?? 06/06/2024 4:17 AM [facility] Comment: This patient's estimated GFR [...] Scanlon MD CHEMISTRY ORDERABLES Performing Organization Address [facility]/ZIP Co de Phone Number [facility] [place] [address] * (ABNORMAL) POC, GLUCOSE (06/05/2024 10:31 PM [...] O RDERABLES [facility] [place] [address] * (ABNORMAL) POC, GLUCOSE (06/05/2024 4:22 PM EDT) Glucometer, POC 205(H) 65 - 199 mg/dL 06/05/2024 4:22 PM EDT [facility] Comment:Supplemental ranges: <140 mg/dL before meals <180 mg/dL all other times of the day. Blood CAPILLARY BLOOD / Unknown 06/05/2024 4:22 PM EDT 06/05/2024 4:23 PM EDT Melida Valdes MD POINT OF CARE TEST O NIKA Performing Organization Address City/[facility]/ZIP Co de Phone Number [facility] [place] [address] * (ABNORMAL) POC, GLUCOSE (06/05/2024 11:34 AM EDT) Glucometer, POC 211(H) 65 - 199 mg/dL 06/05/2024 11:34 AM EDT [facility] Comment:Supplemental ranges: <140 mg/dL before meals <180 mg/dL all other times of the day. Blood CAPILLARY BLOOD / Unknown 06/05/2024 11:34 AM EDT 06/05/2024 11:34 AM EDT Melida Valdes MD POINT OF CARE TEST O NIKA Performing Organization Address City/[facility]/ZIP Co de Phone Number [facility] [place] [address] * Potassium (06/05/2024 9:04 AM EDT) Potassium 4.3 3.5 - 5.0 mMol/L 06/05/2024 9:50 AM EDT [facility] Blood VENOUS BLOOD SPECIMEN / Unknown Venipuncture / Unknown 06/05/2024 9:04 AM EDT 06/05/2024 9:21 AM EDT Shahnaz Scanlon MD CHEMISTRY ORDERABLES Performing Organization Address City/[facility]/ZIP Co de Phone Number [facility] [place] [address] * POC, GLUCOSE (06/05/2024 7:27 AM EDT) Glucometer, POC 166 65 - 199 mg/dL 06/05/2024 7:27 AM EDT [facility] Comment:Supplemental ranges: <140 mg/dL before meals <180 mg/dL all other times of the day. Blood CAPILLARY BLOOD / Unknown 06/05/2024 7:27 AM EDT 06/05/2024 7:27 AM EDT Melida Valdes MD POINT OF CARE TEST O RDERABLES Performing Organization Address [facility] Co de Phone Number [facility] [place] [address] * Heparin (unfractionated) Level (06/05/2024 3:44 AM [...] MD HEMATOLOGY ORDERABLE S Performing Organization Address [facility]/ZIP Co de Phone Number [facility] [place] [address] * (ABNORMAL) CBC (with Diff) (06/05/2024 3:44 AM EDT) White Blood Cell 10.83(H) 4.00 - 9.50 x10(3)/mc L 06/05/2024 3:56 AM [facility] Red Blood Cell 5.07 4.58 - 5.54 x10(6)/mc L 06/05/2024 3:56 AM [facility] Hemoglobin 15.3 13.7 - 16.5 g/dL 06/05/2024 3:56 AM [facility] Hematocrit 46.8 40.5 - 48.5 % 06/05/2024 3:56 AM [facility] Mean Cell Volume 92.3 [...] 6.10 x10(3)/mc L 06/05/2024 3:56 AM EDT [facility] Lymph % 24.0 % 06/05/2024 3:56 AM EDT [facility] Lymph Absolute 2.60 0.90 - 3.20 x10(3)/mc L 06/05/2024 3:56 AM EDT [facility] Monocyte % 10.9 % 06/05/2024 3:56 AM EDT [facility] [...] ORDERABLE S [facility] [place] [address] * Magnesium (06/05/2024 3:44 AM EDT) Magnesium 0.92 0.69 - 1.07 mMol/L 06/05/2024 4:20 AM T [facility] Blood VENOUS BLOOD SPECIMEN / Unknown Venipuncture / Unknown 06/05/2024 3:44 AM EDT 06/05/2024 3:50 AM EDT Shahnaz Scanlon MD CHEMISTRY ORDERABLES [facility] [place] [address] * (ABNORMAL) Basic Metabolic Panel (06/05/2024 3:44 AM EDT) Glucose 155 65 - 199 mg/dL 06/05/2024 4:20 AM T [facility] Comment:Glucose Concentratio n >=200 mg/dL plus symptoms is consistent with Diabetes Mellitus. Blood Urea Nitrogen 25(H) 10 - 20 mg/dL 06/05/2024 4:20 AM EDT [facility] Creatinine 1.16 0.80 [...] 69 mL/min/1. 73 m?? [facility]: This patient's estimated GFR [...] Scanlon MD CHEMISTRY ORDERABLES Performing Organization Address City/[facility]/ZIP Co de Phone Number [facility] [place] [address] * Potassium (06/04/2024 10:34 PM EDT) Potassium 3.7 3.5 - 5.0 mMol/L 06/04/2024 11:03 PM EDT [facility] Blood VENOUS BLOOD SPECIMEN / Unknown Venipuncture / Unknown 06/04/2024 10:34 PM EDT 06/04/2024 10:39 PM EDT Shahnaz Scanlon MD CHEMISTRY ORDERABLES Performing Organization Address City/[facility]/ZIP Co de Phone Number [facility] [place] [place] [address] * POC, GLUCOSE (06/04/2024 7:43 PM EDT) Glucometer, POC 175 65 - 199 mg/dL 06/04/2024 7:43 PM EDT [facility] Comment:Supplemental ranges: <140 mg/dL before meals <180 mg/dL all other times of the day. Blood CAPILLARY BLOOD / Unknown 06/04/2024 7:43 PM EDT 06/04/2024 7:43 PM EDT Melida Valdes MD POINT OF CARE TEST O RDERAPIETER Performing Organization Address [facility] Co de Phone Number [facility] [place] [address] * Potassium (06/04/2024 4:35 PM EDT) Potassium 4.0 3.5 - 5.0 mMol/L 06/04/2024 5:32 PM EDT [facility] Blood VENOUS BLOOD SPECIMEN / Unknown Venipuncture / Unknown 06/04/2024 4:35 PM EDT 06/04/2024 4:40 PM EDT Shahnaz Scanlon MD CHEMISTRY ORDERABLES Performing Organization Address [facility] Co de Phone Number [facility] [place] [address] * POC, GLUCOSE (06/04/2024 3:26 PM EDT) Glucometer, POC 154 65 - 199 mg/dL 06/04/2024 3:26 PM EDT [facility] Comment:Supplemental ranges: <140 mg/dL before meals <180 mg/dL all other times of the day. Blood CAPILLARY BLOOD / Unknown 06/04/2024 3:26 PM EDT 06/04/2024 3:27 PM EDT Melida Valdes MD POINT OF CARE TEST O NIKA Performing Organization Address [facility]/ZIP Co de Phone Number [facility] [place] [address] * POC, GLUCOSE (06/04/2024 11:09 AM EDT) Glucometer, POC 188 65 - 199 mg/dL 06/04/2024 11:09 AM EDT [facility] Comment:Supplemental ranges: <140 mg/dL before meals <180 mg/dL all other times of the day. Blood CAPILLARY BLOOD / Unknown 06/04/2024 11:09 AM EDT 06/04/2024 11:09 AM EDT Delroy Fofana MD POINT OF CARE TEST ORDERABLES Performing Organization Address [facility] Co de Phone Number [facility] [place] [address] * Heparin (unfractionated) Level (06/04/2024 10:41 AM [...] MD HEMATOLOGY ORDERABLE S Performing Organization Address City/[facility]/ZIP Co de Phone Number [facility] [place] [address] * Potassium (06/04/2024 10:41 AM EDT) Potassium 4.0 3.5 - 5.0 mMol/L 06/04/2024 11:11 AM EDT [facility] Blood VENOUS BLOOD SPECIMEN / Unknown Venipuncture / Unknown 06/04/2024 10:41 AM EDT 06/04/2024 10:46 AM EDT Shahnaz Scanlon MD CHEMISTRY ORDERABLES Performing Organization Address City/[facility]/ZIP Co de Phone Number [facility] [place] [address] * POC, GLUCOSE (06/04/2024 7:11 AM EDT) Glucometer, POC 182 65 - 199 mg/dL 06/04/2024 7:12 AM EDT [facility] Comment:Supplemental ranges: <140 mg/dL before meals <180 mg/dL all other times of the day. Blood CAPILLARY BLOOD / Unknown 06/04/2024 7:11 AM EDT 06/04/2024 7:12 AM EDT Delroy Fofana MD POINT OF CARE TEST ORDERABLES Performing Organization Address [facility] Co de Phone Number [facility] [place] [address] * Heparin (unfractionated) Level (06/04/2024 4:38 AM [...] ORDERABLE S [facility] [place] [address] * (ABNORMAL) CBC (with Diff) (06/04/2024 4:38 AM EDT) White Blood Cell 11.45(H) 4.00 - 9.50 x10(3)/mc L 06/04/2024 5:12 AM EDT [facility] Red Blood Cell 5.35 4.58 - 5.54 x10(6)/mc L 06/04/2024 5:12 AM EDT [facility] Hemoglobin 16.0 13.7 - 16.5 g/dL 06/04/2024 5:12 AM EDT [facility] Hematocrit 49.6(H) 40.5 - 48.5 % 06/04/2024 5:12 AM EDT [facility] Mean Cell Volume 92.7 82.9 - 93.1 fL 06/04/2024 5:12 AM EDT [facility] Mean Cell Hemoglobin 29.9 27.5 - 32.1 pg 06/04/2024 5:12 AM EDT [facility] Mean Cell Hemoglobin Concentration 32.3 32.0 - 35.7 g/dL 06/04/2024 5:12 AM EDT [facility] Platelet 222 145 - 357 x10(3)/mc L 06/04/2024 5:12 AM EDT [facility] Mean Platelet Volume 9.5 7.6 - 12.9 fL 06/04/2024 5:12 AM EDT [facility] RDW Standard Deviation 47.6(H) 36.0 - 45.0 fL 06/04/2024 5:12 AM EDT [facility] RDW coefficient of [...] - 6.10 x10(3)/mc L 06/04/2024 5:12 AM [facility] Lymph % 25.1 % 06/04/2024 5:12 AM [facility] Lymph Absolute 2.87 0.90 - 3.20 x10(3)/mc L 06/04/2024 5:12 AM [facility] Monocyte % 10.6 % 06/04/2024 5:12 AM [facility] Monocyte Absolute 1.21(H) 0.30 - 0.90 x10(3)/mc L 06/04/2024 5:12 AM [facility] Eos % 2.8 % 06/04/2024 5:12 AM [facility] Eos Absolute 0.32 0.00 - 0.40 x10(3)/mc L 06/04/2024 5:12 AM [facility] Basophil % 0.7 % 06/04/2024 5:12 AM [facility] Baso Absolute 0.08 0.00 - 0.10 x10(3)/mc L 06/04/2024 5:12 AM [facility] Immature Gran % 0.5 % 5:12 AM [facility] Immature Gran Absolute 0.06(H) 0.00 - 0.04 x10(3)/mc L 06/04/2024 5:12 AM EDT [facility] Blood VENOUS BLOOD SPECIMEN / Unknown Venipuncture / Unknown 06/04/2024 4:38 AM EDT 06/04/2024 5:07 AM EDT Shahnaz Scanlon MD HEMATOLOGY ORDERABLE S [facility] [place] [address] * Magnesium (06/04/2024 4:38 AM EDT) Magnesium 0.84 0.69 - 1.07 mMol/L 06/04/2024 5:35 AM EDT [facility] Blood VENOUS BLOOD SPECIMEN / Unknown Venipuncture / Unknown 06/04/2024 4:38 AM EDT 06/04/2024 5:07 AM EDT Shahnaz Scanlon MD CHEMISTRY ORDERABLES [facility] [place] [address] * (ABNORMAL) Basic Metabolic Panel (06/04/2024 4:38 [...] - 15 mMol/L 06/04/2024 5:35 AM EDT [facility] Calcium 9.0 8.5 - 10.5 mg/dL 06/04/2024 5:35 AM EDT [facility] [...] CHEMISTRY ORDERABLES [facility] [place] [address] * Heparin (unfractionated) Level (06/03/2024 8:58 PM [...] MD HEMATOLOGY ORDERABLE S Performing Organization Address [facility] Co de Phone Number [facility] [place] [address] * POC, GLUCOSE (06/03/2024 8:05 PM EDT) Glucometer, POC 136 65 - 199 mg/dL 06/03/2024 8:05 PM EDT [facility] Comment:Supplemental ranges: <140 mg/dL before meals <180 mg/dL all other times of the day. Blood CAPILLARY BLOOD / Unknown 06/03/2024 8:05 PM EDT 06/03/2024 8:05 PM EDT Delroy Fofana MD POINT OF CARE TEST ORDERABLES Performing Organization Address City/[facility]/ZIP Co de Phone Number [facility] [place] [address] * POC, GLUCOSE (06/03/2024 5:48 PM EDT) Glucometer, POC 191 65 - 199 mg/dL 06/03/2024 5:48 PM EDT [facility] Comment:Supplemental ranges: <140 mg/dL before meals <180 mg/dL all other times of the day. Blood CAPILLARY BLOOD / Unknown 06/03/2024 5:48 PM EDT 06/03/2024 5:49 PM EDT Delroy Fofana MD POINT OF CARE TEST ORDERABLES [facility] [place] [address] * CT Chest wo Contrast (Generic) (06/03/2024 4:33 PM EDT) WORKSTATION ID [id number] RAD Anatomical Region Laterality Modality Chest Computed Tomogra phy Impressions 06/03/2024 4:47 PM EDT Cardiomegaly. Biventricular ICD leads in place. Thank you for letting us participate in the care of this patient. ??If you are a health care provider and have any questions regarding this report, please contact the number below. ??For patients who have questions please contact the health manager medicare marketing that requested your imaging first. ? Narrative [...] patients who have questions please contactthe health manager medicare marketing that requested your imaging first. Electronically signed by: Stuart Aponte MD, [facility]([phone]), at 06/03/2024 4:47 PM Bobby Loja MD IMG CT ORDERABLES * Carotid Duplex, Bilateral (06/03/2024 2:19 PM EDT) VB Text Report Department: Vascular Surgery Lab Patient: [id number] (GEORGE MEHTA) CPT: 23047 Referring Physician: BOBBY LOJA ?? Phone: Indications: [...] ORDERABLE S [facility] [place] [address] * POC, GLUCOSE (06/03/2024 11:14 AM EDT) Glucometer, POC 166 65 - 199 mg/dL 06/03/2024 11:14 AM EDT [facility] Comment:Supplemental ranges: <140 mg/dL before meals <180 mg/dL all other times of the day. Blood CAPILLARY BLOOD / Unknown 06/03/2024 11:14 AM EDT 06/03/2024 11:14 AM EDT Delroy Fofana MD POINT OF CARE TEST ORDERABLES Performing Organization Address City/[facility]/ZIP Co de Phone Number [facility] [place] [address] * (ABNORMAL) Troponin-T, High Sensitivity 3 Hour [...] can be found in the [facility] Laboratory Test Catalog Troponin - [email or web address].org/[email or web address]/[email or web address]/[email or web address] Reference: Fourth [place] Definition of Myocardial Infarction. Journal of the [place] [employer] 2018;72:5033-0431 Troponin-T, HS 3 hr delta 06/03/2024 10:50 AM EDT [facility] Comment:Delta troponin value not calculated, sample collected outside of delta calculation time limit. Blood VENOUS BLOOD SPECIMEN / Unknown IP Care Team Draw / Unknown 06/03/2024 10:06 AM EDT 06/03/2024 10:15 AM EDT Delroy Fofana MD CHEMISTRY ORDERABLE S [facility] [place] [address] * ECHO COMPLETE W CONTRAST (06/03/2024 8:46 AM EDT) Anatomical Region Laterality Modality Cardiac Other 06/03/2024 6:52 AM EDT Narrative 06/03/2024 10:32 AM EDT [address] [place] [address] ? Echocardiogram Report Name: GEORGE MEHTA ?Study Date: 06/03/2024 06:52 AM : 1955 ? Height: 168 cm ? Account: [id number] Age: 69 yrs ? Weight: 102 kg Gender: Male ?BSA: 2.1 m2 Ordering Physician: SHAHNAZ SCANLON Referring Physician: NEHAL QUINTERO Performed By: Sara Kebede RDCS Reason For Study: STEMI Exam Location: [facility]. Interpretation Summary -Left ventricular [...] fellow performed study of today's date). Procedure Complete-17095. Image enhancement Optison was used for left [...] Note Jonnie Jordan MD - 06/03/2024 [address] [place] [address] Echocardiogram Report Name: GEORGE MEHTA Study Date: 406:52 AM : 1955 Height: 168 cm Account: [id number] Age: 69 yrs Weight: 102 kg Gender: Male BSA: 2.1 m2 Ordering Physician: SHAHNAZ SCANLON Referring Physician: NEHAL QUINTERO Performed By: Sara Kebede RDCS Reason For Study: STEMI [facility]am [facility] [facility] Interpretation Summary -Left ventricular [...] a fellow performed study of's date). Procedure Complete-54154. Image enhancement Optison was used for left [...] can be found in the [facility] Laboratory Test Catalog Troponin - https://one-dh.testcatalog.org/catalogs/565/files/66433 Reference: Fourth [place] Definition of Myocardial Infarction. Journal of the [place] College of [employer]iology 2018;72:6447-5050 Troponin-T, HS 1 hr delta 5 ng/L [...] ORDERABLE S [facility] [place] [address] * POC, GLUCOSE (06/03/2024 7:54 AM EDT) Glucometer, POC 195 65 - 199 mg/dL 06/03/2024 7:55 AM EDT [facility] Comment:Supplemental ranges: <140 mg/dL before meals <180 mg/dL all other times of the day. Blood CAPILLARY BLOOD / Unknown 06/03/2024 7:54 AM EDT 06/03/2024 7:55 AM EDT Nuha Rojo MD POINT OF CARE TEST ORDERABLES Performing Organization Address City/[facility]/ZIP Co de Phone Number [facility] [place] [address] * (ABNORMAL) Troponin-T, High Sensitivity (06/03/2024 7:39 AM EDT) [facility] Troponin-T, High Sensitivity Initial 284(H) <=22 ng/L [...] troponin value can be found in the [facility] [employer] [facility] Test Catalog Troponin - https://Filement.org/catalogs/565/files/94805 Reference: Fourth [place] Definition of Myocardial Infarction. Journal of the [place] College of Cardiology 2018;72:5666-7857 Blood VENOUS BLOOD SPECIMEN / Unknown IP Care Team Draw / Unknown 06/03/2024 7:39 AM EDT 06/03/2024 7:48 AM EDT Delroy Fofana MD CHEMISTRY ORDERABLE S [facility] [place] [address] * (ABNORMAL) Troponin-T, High Sensitivity 3 Hour (06/03/2024 5:11 AM EDT) Pathologist [facility] Troponin-T, High Sensitivity 254(H) <=22 ng/L [...] troponin value can be found in the [facility] [employer] [facility] Laboratory Test Catalog Troponin - https://0xdata/catalogs/565/files/37449 Reference: Fourth [place] Definition of Myocardial Infarction. Journal of the [place] College [employer]iology 2018;72:0856-2587 Troponin-T, HS 3 hr delta 46 ng/L [...] CHEMISTRY ORDERABLES [facility] [place] [address] * (ABNORMAL) Troponin-T, High Sensitivity 1 Hour (06/03/2024 3:07 AM EDT) Pathologist [facility] Troponin-T, High Sensitivity 218(H) <=22 ng/L 06/03/2024 [...] can be found in the [facility] Laboratory Test Catalog Troponin - https://one-dh.testcatalog.org/catalogs/565/files/93873 Reference: Fourth [place] Definition of Myocardial Infarction. Journal of the [place] College of [employer]iology 2018;72:0419-9634 Troponin-T, HS 1 hr delta 10 ng/L [...] CHEMISTRY ORDERABLES [facility] [place] [address] * XR Chest One View (06/03/2024 2:41 AM EDT) WORKSTATION ID [id number] RAD Anatomical Region Laterality Modality Chest N/A Digital Radiogra phy Impressions 06/03/2024 3:06 AM EDT No radiographically evident acute cardiopulmonary process. Thank you for letting us participate in the care of this patient. ??If you are a health care provider and have any questions regarding this report, please contact the number below. ??For patients who have questions please contact the health manager medicare marketing that requested your imaging first. ? Electronically signed by: Corazon Mauro MD, [facility] ([phone]), at 06/03/2024 3:06 AM Narrative 06/03/2024 3:06 [...] patients who have questions please contactthe health manager medicare marketing that requested your imaging first. Electronically signed by: Corazon Mauro MD, [facility]([phone]), at 06/03/2024 3:06 AM Shahnaz Scanlon MD [...] ORDERABLE S [facility] [place] [address] * (ABNORMAL) Troponin-T, High Sensitivity (06/03/2024 2:13 [...] can be found in the [facility] Laboratory Test Catalog Troponin - https://one-.testcatalog.org/catalogs/565/files/89154 Reference: Fourth [place] Definition of Myocardial Infarction. Journal of the [place] College of Cardiology 2018;72:0895-0734 Blood VENOUS BLOOD SPECIMEN / Unknown IP Care Team Draw / Unknown 06/03/2024 2:13 AM EDT 06/03/2024 2:32 AM EDT Shahnaz Scanlon MD CHEMISTRY ORDERABLES Performing Organization Address City/[facility]/ZIP Co de Phone Number [facility] [place] [address] * Magnesium (06/03/2024 2:13 AM EDT) Magnesium 0.86 0.69 - 1.07 mMol/L 06/03/2024 3:02 AM EDT [facility] Blood VENOUS BLOOD SPECIMEN / Unknown IP Care Team Draw / Unknown 06/03/2024 2:13 AM EDT 06/03/2024 2:32 AM EDT Shahnaz Scanlon MD CHEMISTRY ORDERABLES Performing Organization Address City/[facility]/ZIP Co de Phone Number [facility] [place] [address] * Basic Metabolic Panel (06/03/2024 2:13 AM [...] 71 mL/min/1. 73 m?? 06/03/2024 3:02 AM [facility] Comment: This [...] CHEMISTRY ORDERABLES [facility] [place] [address] * (ABNORMAL) CBC (with Diff) (06/03/2024 2:13 AM EDT) White Blood Cell 11.16(H) 4.00 - 9.50 x10(3)/mc L 06/03/2024 2:37 AM EDT [facility] Red Blood Cell 5.09 4.58 - 5.54 x10(6)/mc L 06/03/2024 2:37 AM [facility] Hemoglobin 15.0 13.7 - 16.5 g/dL 06/03/2024 2:37 AM [facility] Hematocrit 47.4 40.5 - 48.5 % 06/03/2024 2:37 AM [facility] Mean Cell Volume 93.1 82.9 - 93.1 fL 06/03/2024 2:37 AM [facility] Mean Cell Hemoglobin 29.5 27.5 - 32.1 pg 06/03/2024 2:37 AM [facility] Mean Cell [...] 3.20 x10(3)/mc L 06/03/2024 2:37 AM EDT [facility] Monocyte % 8.1 % 06/03/2024 2:37 AM EDT [facility] Monocyte Absolute 0.90 0.30 - 0.90 x10(3)/mc L 06/03/2024 2:37 AM EDT [facility] Eos % 2.4 % [...] ORDERABLE S [facility] [place] [address] * Lipid Panel (Reflex Direct LDL) (06/03/2024 2:13 AM EDT) Cholesterol, Total 76 mg/dL 06/03/2024 3:02 AM EDT [facility] Comment: Desirable: < 200 mg/dL Borderline High: 200 - 239 mg/dL High: > or = 240 mg/dL Triglyceride 75 mg/dL 06/03/2024 3:02 AM T [facility] Comment: Normal: <150 mg/dL Borderline High: 150-199 mg/dL High: 200-499 mg/dL Very High: > or =500 mg/dL HDL Cholesterol 39 mg/dL 3:02 AM T [facility] Comment:Males: High Risk: <4 0 mg/dL LDL Cholesterol 21 mg/dL 3:02 AM [facility] Comment: Desirable: <100 mg/dL Above Desirable: 100-129 mg/dL Borderline High: 130-159 mg/dL High: 160-189 mg/dL Very High: > or =190 mg/dL Note: LDL calculation updated to the NIH LDL formula as of 03/07/2024 Non-HDL Cholesterol 37 mg/dL 06/03/2024 3:02 AM [facility] Comment: Desirable: <130 mg/dL Above Desirable: 130-159 mg/dL Borderline High: 160-189 mg/dL High: 190-219 mg/dL Very High: > or = 220 mg/dL Blood VENOUS BLOOD SPECIMEN / Unknown IP Care Team Draw / Unknown 06/03/2024 2:13 AM EDT 06/03/2024 2:32 AM EDT [facility] - 06/03/2024 3:02 AM EDT [...] ACC/AHA Guidelines (most recently Bruce hermosillo al. [facility] 05/07/22): * For individuals with atherosclerotic cardiovascular [...] artery disease) Shahnaz Scanlon MD CHEMISTRY ORDERABLES [facility] [place] [address] * (ABNORMAL) APTT (06/03/2024 2:13 AM EDT) [...] ORDERABLE S [facility] [place] [address] * Prothrombin Time (06/03/2024 2:13 AM EDT) [...] ORDERABLE S [facility] [place] [address] * Hepatic Function Panel (06/03/2024 2:13 AM [...] Scanlon MD CHEMISTRY ORDERABLES Performing Organization Address City/[facility]/ZIP Co de Phone Number [facility] [place] [address] * (ABNORMAL) pro-Brain Natriuretic Peptide (06/03/2024 2:13 AM EDT) NT-proBNP 1,628(H) <=124 pg/mL 06/03/2024 4:15 AM EDT [facility] Blood VENOUS BLOOD SPECIMEN / Unknown IP Care Team Draw / Unknown 06/03/2024 2:13 AM EDT 06/03/2024 2:32 AM EDT Shahnaz Scanlon MD CHEMISTRY ORDERABLES [facility] [place] [address] * Phosphorus (06/03/2024 2:13 AM EDT) Phosphorus 4.4 2.5 - 4.5 mg/dL 06/03/2024 3:02 AM EDT [facility] Blood VENOUS BLOOD SPECIMEN / Unknown IP Care Team Draw / Unknown 06/03/2024 2:13 AM EDT 06/03/2024 2:32 AM EDT Shahnaz Scanlon MD CHEMISTRY ORDERABLES Performing Organization Address [facility] Co de Phone Number [facility] [place] [address] * EKG 12 Lead (06/03/2024 1:45 AM EDT) Ventricular rate 63 BPM MUSE SYSTEM Atrial Rate 63 BPM MUSE SYSTEM P-R Interval 168 ms MUSE SYSTEM QRS Duration 96 ms MUSE SYSTEM Q-T Interval 400 ms MUSE SYSTEM QTC Calculated (Bezet) 409 ms MUSE SYSTEM Calculated P [place] 65 degrees MUSE SYSTEM Calculated R [place] 70 degrees MUSE SYSTEM Calculated T [place] -86 degrees MUSE SYSTEM INTERPRETATION Atrial-sensed ventricular-paced rhythm Abnormal ECG No previous ECGs available I personally reviewed the tracing and edited the fellows interpretation Confirmed by fellow Sunni Agudelo ([id number]) on 06/04/2024 3:55:40 PM Confirmed by MD Cantrell Jonathan C. ([id number]) on 06/05/2024 11:46:48 AM MUSE SYSTEM 06/03/2024 1:45 AM EDT 06/05/2024 11:46 AM EDT Shahnaz Scanlon MD ECG ORDERABLES Performing Organization Address [facility] Co de Phone Number MUSE SYSTEM * CARDIAC CATHETERIZATION (06/03/2024 12:42 AM EDT) Anatomical Region Laterality Modality Other Narrative 06/04/2024 2:22 PM EDT ?[facility] ? Cardiac Catheterization/Intervention Report ? Patient Name: George Mehta L. ? Procedure Date: 06/02/2024 ? A #: [id number] ? Primary Physician: Nuha Shen I ? Case #: [id number] ? File Name: [id number] ? Catheterization Order Number: [id number] ? [facility] ? Final Report [place], [place] ? Patient Name: ? George L. Tyson ? ID#: ?[id number] ? : ?1955 ? Procedure Date: ? June 02, 2024 ? Case #: ? [id number] ? Room: ? 5 ? Case Physician: [...] procedure was Emergent. The indication for ?the landscape laborer visit is ACS less than or [...] ?3.5 guiding catheter and a 3.5 Fr [facility] [place] 20 Mhz using Manual [...] 3.5 guiding catheter and a 3.5 Fr [facility] [facility] [place] 20 Mhz using ?Manual [...] Procedure Note Nuha Shen MD - 07/20/2024 [facility] Cardiac Catheterization/Intervention Report Patient Name: George Mehta Procedure Date: 06/02/2024 A #: [id number] Primary Physician: Nuha Shen I Case #: [id number] File Name: [id number] Catheterization Order Number: [id number] [facility] FinalReport [place], [place] Patient Name: George Mehta ID#:[id number] :1955 Procedure Date: June 02, 2024 Case [...] was designated as ASA Class IV. The [facility] clinicalfrailty scale is 5: Mildly Frail. Diagnostic Tests: Electrocardiography: EKG was assessed by ECG. EKG was Abnormal. EKG showed STDeviation >= 0.5 mm. Medications Prior to Procedure: Sacubitril and Valsartan, Aspirin, Beta Erik, Statin and Thrombolytic (any). Indications for Diagnostic Cath: The priority of the diagnostic procedure was Emergent. Theindication for the landscape laborer visit is ACS less than or [...] units of heparin were administered. A total ox759gm of Omnipaque were opened, 84cc of Omnipaque were administered sam69hp of Omnipaque were wasted. Radiation: Fluoro time [...] 3.5 guiding catheter and a 3.5 Fr [facility] [place] 20 Mhz usingManual pullback. [...] 3.5 guiding catheter and a 3.5 Fr [place] [facility] [place] 20 Mhzusing Manual pullback. Imaging was successful. Indication: IVUS performed for pre intervention planning. Findings Pre-Intervention: scattered plaque, calcification and [id number] degrees calcification. Findings Post-Intervention: Stent not imaged [...] POC, GLUCOSE (06/02/2024 11:31 PM EDT) [facility] Signature Glucometer, POC 156 65 - 199 mg/dL 06/02/2024 11:31 PM EDT [facility] Comment:Supplemental ranges: <140 mg/dL before meals <180 mg/dL all other times of the day. Blood CAPILLARY BLOOD / Unknown 06/02/2024 11:31 PM EDT 06/02/2024 11:31 PM EDT Narrative Authorizing Provider Result Saranya Rojo MD POINT OF CARE TEST ORDERABLES Performing Organization Address City/State/[facility] Co de Phone Number [facility] [place] [address] documented in this encounter Visit Diagnoses Diagnosis STEMI (ST elevation myocardial infarction)- Primary Acute myocardial infarction, unspecified site, episode of care unspecified ST elevation myocardial infarction (STEMI), unspecified artery Coronary artery disease involving che[place]vi coronary artery of cheme[place]uevi heart without angina pectoris S/P CABG x 3 Postsurgical aortocoronary bypass status Acute on chronic heart failure with reduced ejection fraction (HFrEF, <= 40%) Coronary artery disease involving [place]vi coronary artery of cheme[place]uevi heart without angina pectoris Type 2 diabetes mellitus Type II or unspecified type diabetes mellitus without mention of complication, not stated as uncontrolled Cardiac resynchronization therapy defibrillator (BEHAVIORAL HEALTH CARE COORDINATOR-D) - Medtronic Amplia Cardiomyopathy, ischemic Other specified [...] 6 hours upon arrival to Unit. Give KS if unable to take PO, Routine Given [...] dose on Fri06/14/24 at 2100, Until Discontinued, Beatrice teeth and / or gums. Scan the CHG vial in the [email or web address] Q-Care Oral Care Kit from floor stock. Ventilator-associated pneumonia prophylaxis For use in ICU/Critical care locations ONLY. Obtain kit from Floor Stock location. Scan CHG vial in the [email or web address] Q-Care Oral Care Kit, Routine Given 06/14/2024 [...] restart at 50% of previous rate. Call housekeeping manager if goal not achieved at maximum rate. [...] in sodium chloride 0.9% infusion (for [facility], Compliance Representative Dealer, OR use only) 3-5 mL/hr, Intravenous, CONTINUOUS, [...] MEALS, First dose (after last modification) on [place] 06/19/24 at 0800, Until Discontinued, MEAL ASSOCIATED [...] MEALS, First dose (after last modification) on [facility] 06/17/24 at 0800, Until Discontinued, MEAL [...] MEALS, First dose (after last modification) on [facility] 06/17/24 at 1700, Until Discontinued, MEAL [...] TIMES DAILY WITH MEALS, First dose on [place] 06/06/24 at 1200, Until Discontinued, MEAL ASSOCIATED Give 1 unit for every 10 grams carbohydrate. Hold if not eating or if BG less than 70 mg/dL. , Routine Given 06/06/2024 12:25 PM EST 4 Units insulin lispro (HumaLOG;Admelog) (100 unit/mL) subcutaneous injection vial 1-10 Units 1-10 Units, Subcutaneous, EVERY 4 HOURS SCHEDULED, First dose (after last modification) on [place] 06/19/24 at 0800, Until Discontinued, CORRECTION BOLUS [...] 2100, Last dose on Fri06/23/24 at 0900, Qualitative Researcher recommended duration is 3 days., Routine Given [...] 8:02 PM EST 2 tablets sodium chloride (Mchenry) 0.65 % nasal spray 1 spray 1 [...] 2.0 L/min/M2. Maximum volume 2 L. Call housekeeping manager for additional fluid orders: pager #[phone]. Rate/Dose Verify 06/15/2024 10:00 AM EST 1 [...] Comment: BG [phone] (Not Given - Provider: aMry Lou Lane RN - Reason: Order parameters [...] 2100, Last dose on Fri06/23/24 at 0900, Qualitative Researcher recommended duration is 3 days., Routine 2043 [...] oral route first line., Routine sodium chloride (Mchenry) 0.65 % nasal spray 1 spray 1 [...] 6 hours upon arrival to Unit. Give KS if unable to take PO, Routine Group [...] Routine documented in this encounter Care Teams Weights And Measures Sealer Relationship Specialty Start Date End Date Mauro Berumen MD [address] [place] [address] PCP - General Family Medicine 06/02/24 documented as of this encounter
--- OUTSIDE RECORDS SUMMARY | 2024-09-03 10:31 | XMS_ITS | Encounter Summary ---
Author Organization [facility] Address [facility] [place] [address] Care Team Providers Care Citrus Fruit Colorer Name Role Phone Mauro Berumen MD Primary Care Provider [phone] Encounter Details Date Type Department Care Team (Latest Contact Info) Description 06/14/2024 Unscheduled Encounter Cardiology at [address] [place] [phone] Ross Corbin PA [facility] [place] [address] Cardiac resynchronization therapy defibrillator (PROGRAM DEVELOPMENT MANAGER-D) in place [Z95.810] Social History Tobacco Use Types Packs/Day Years Used Date Smoking Tobacco: Every Day Cigarettes Smokeless Tobacco: Never [facility] Utilities Answer Date Recorded In the past [...] AM EST Cardiac Device Interrogation Arturo Mehta [id number] 06/14/2024 History: Arturo Mehta is a 69 year old male with a PMH significant for HTN, HLD, DM2, current TUD (abstinent since admission), ASCVD with multiple prior [place] and PCIs, ICM/HFrEF LVEF 30% (all territories viable on cMRI) who is undergoing a CABG procedure and EP was asked to reprogram his PROGRAM DEVELOPMENT MANAGER-D device for the procedure. Vitals: Last Set of Vitals and range of vitals over past 24 hours: Range last 24 hrs Temperature Temp: [36 ??C (96.8 ??F)-37 ??C (98.6 ??F)] Heart Rate Heart Rate: [57-72] Blood Pressure BP: (99-138)/(66-86) Respiratory Rate Resp: [13-24] SpO2 SpO2: [90 %-98 %] Device Interrogation: Data Generator: MedKolorific Amplia MRI Quad PROGRAM DEVELOPMENT MANAGER-D [id number] / [id number] - Left-sided implant; 06/16/19 RA Lead: Medtronic 4076 CapSureFix Novus [id number]; 06/16/19 RV Lead: Medtronic 6935M / [id number]; 06/16/19 LV Lead: Medtronic 4298 Attain Performa MRI / [id number]; 06/16/19 Diagnostics Pacing Mode: DDD @ 50/130 [...] scheduled. Ross Corbin PA-C, PhD 06/14/2024 Pager: [phone] documented in this encounter Plan of Treatment Upcoming Encounters Date Type Department Care Team (Late st Contact Info) Description 09/29/2024 2:00 PM EST Office Visit Cardiology at [address] [phone] Moi Falcon MD [facility] [place] [address] documented as of this encounter Visit Diagnoses Diagnosis Cardiac resynchronization therapy defibrillator (PROGRAM DEVELOPMENT MANAGER-D) in place [Z95.810] documented in this encounter Care Teams Citrus Fruit Colorer Relationship Specialty Start Date End Date Mauro Berumen MD [address] [place] [id number] PCP - General Family Medicine 06/02/24 documented as of this encounter
--- OUTSIDE RECORDS SUMMARY | 2024-09-03 10:31 | XMS_ITS | Encounter Summary ---
Author Organization [facility] Address [facility] [place] [address] Care Team Providers Care Harness Mender Name Role Phone Mauro Berumen MD Primary Care Provider [phone] Encounter Details Date Type Department Care Team (Latest Contact Info) Description 06/15/2024 Unscheduled Encounter Cardiology at [address] [place] [phone] Ross Corbin PA [facility] [place] [address] Cardiac resynchronization therapy defibrillator (OFFICE ASSISTANT RECEPTIONIST-D) in place [Z95.810] Social History Tobacco Use Types Packs/Day Years Used Date Smoking Tobacco: Every Day Cigarettes Smokeless Tobacco: Never [facility] Utilities Answer Date Recorded [...] PM EST Cardiac Device Interrogation Arturo Mehta [id number] 06/15/2024 History: Arturo Mehta is a 69 year old male with a PMH significant for HTN, HLD, DM2, current TUD (abstinent since admission), ASCVD with multiple prior [place] and PCIs, 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 Today, EP was asked to reprogram his OFFICE ASSISTANT RECEPTIONIST-D device for the procedure. Vitals: Last Set of Vitals and range of vitals over past 24 hours: Range last 24 hrs Temperature Temp: [34.9 ??C (94.8 ??F)-37.6 ??C (99.7 ??F)] Heart Rate Heart Rate: [80-107] Blood Pressure BP: (115)/(65) Respiratory Rate Resp: [11-24] SpO2 SpO2: [92 %-100 %] Device Interrogation: Data Generator: Medtronic Amplia MRI Quad OFFICE ASSISTANT RECEPTIONIST-D [id number] / [id number] - Left-sided implant; 06/16/19 RA Lead: Medtronic 4076 CapSureFix Novus [id number]; 06/16/19 RV Lead: Medtronic 6935M / [id number]; 06/16/19 LV Lead: Medtronic 4298 Attain Performa MRI / [id number]; 06/16/19 Alerts VF Detection OFF, 3+ VF or 3+ FVT Rx Off. Diagnostics Pacing Mode: DDD @ 80/130 bpm Presenting EGMs: BV Underlying Rhythm: Sinus tachycardia ~100 bpm Atrial Pacin.7% Ventricular Pacin.6% OFFICE ASSISTANT RECEPTIONIST Pacin% Battery and Leads Voltage: 2.93 V [...] - Contact the device clinic at pager [phone] for any further programming adjustments. Ross Corbin PA-C, PhD 06/15/2024 Pager: [phone] documented in this encounter Plan of Treatment Upcoming Encounters Date Type Department Care Team (Late st Contact Info) Description 09/29/2024 2:00 PM EST Office Visit Cardiology at [address] [phone] Moi Falcon MD [facility] [place] [address] documented as of this encounter Visit Diagnoses Diagnosis Cardiac resynchronization therapy defibrillator (OFFICE ASSISTANT RECEPTIONIST-D) in place [Z95.810] documented in this encounter Care Teams Harness Mender Relationship Specialty Start Date End Date Mauro Berumen MD [address] [place] [address] PCP - General Family Medicine 06/02/24 documented as of this encounter
--- OUTSIDE RECORDS SUMMARY | 2024-09-03 10:33 | XMS_ITS | Encounter Summary ---
Author Organization [facility], Located Within [facility] [place] [address] Care Team Providers Care Clinical Administrator Name Role Phone Mauro Berumen MD Primary Care Provider [phone] Reason for Visit * Auth/Cert Specialty Diagnoses / Procedures Referred By Carroll t Referred To Contact Diagnoses STEMI (ST elevation myocardial infarction) STEMI Procedures CARDIAC CATHETERIZATION EMERGENCY Delroy Monterroso MD [facility] [place] [address] [facility] Referral ID Status Reason Start Date Expiration Date Visits Re quested Visits Authorized [id number] 1 1 Encounter Details Date Type Department Care Team (Late st Contact Info) Description 06/14/2024 7:30 AM EST Anesthesia [place] [address] Hosea Adron MD [facility] [place] [address] Joy Leyva CRNA [facility] [place] [address] Anesthesia Record Procedure Summary Procedure Name Responsible [...] by Zeferino Baker RN PIV 06/13/24; 1200; [id number] catheter system; 20 gauge; metacarpal vein (top [...] temperature probe; 100% silicone; 14; inserted at [facility]; 1; 10; 10; drainage bag; 06/18/24; [...] Ardon MD 06/15/24 0000 by Yoli Donaldson [employer] Cental Line 06/14/24; 0827; Sing le Lumen; [...] Tobacco: Every Day Cigarettes Smokeless Tobacco: Never [facility] Utilities Answer Date Recorded In the past 12 months has [employer], gas, oil, or water [employer] threatened to shut off services in your [...] Procedure Summary Date: 06/14/24 Room / Location: [facility] OR [address] [place] [address] MAIN OR Anesthesia Start: 729 Anesthesia Stop: [...] All Anesthesia Providers: Anesthesiologist: Hosea Ardon MD TECHNICAL INSPECTOR: Joy Leyva CRNA Vitals Value Taken Time [...] Diagnosis Date Noted Cardiac resynchronization therapy defibrillator ([employer]-D) - [employer] Amplia 06/09/2024 Cardiomyopathy, ischemic 06/09/2024 Acute on chronic heart failure with reduced ejection fraction (HFrEF, <= 40%) 06/05/2024 Coronary artery disease involving [place] coronary artery of [place] heart without angina pectoris 06/05/2024 Type 2 [...] ACS/crushing chest pain, likely due to lateral NM, 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 LV ejection fraction [...] AM Reason For Study: STEMI Exam Location: [facility]. Interpretation Summary -Left ventricular systolic function is [...] 65 - 199 mg/dL -Type and screen ([facility]/CGP/RAFITA): Result Value Ref Range ABORH Type O POSITIVE PATIENT HISTORY Not Found Expires at [id number] on: 06/16/2024 ANTIBODY SCREEN AUTOMATED Negative T&S only valid at [facility] -POC, GLUCOSE: Result Value Ref Range Glucometer, POC 216 (H) 65 - 199 mg/dL -ABORH RECHECK: Result Value Ref Range ABORH Recheck O POSITIVE -Heparin (unfractionated) Level: Result Value Ref Range UF Heparin 0.76 IU/mL Region - Intrathoracic Cardiac Informed Consent: Plan discussed with TECHNICAL INSPECTOR. Anesthesia Screening documented in this encounter Plan of Treatment Upcoming Encounters Date Type Department Care Team (Late st Contact Info) Description 09/29/2024 2:00 PM EST Office Visit Cardiology at [address] [phone] Moi Falcon MD [facility] [place] [address] documented as of this encounter Visit Diagnoses [...] mL/hr documented in this encounter Care Teams Clinical Administrator Relationship Specialty Start Date End Date Mauro Berumen MD [address] [place] [address] PCP - General Family Medicine 06/02/24 documented as of this encounter
--- OUTSIDE RECORDS SUMMARY | 2024-09-03 10:33 | XMS_ITS | Encounter Summary ---
Author Organization [facility] [place] [address] Care Team Providers Care Multimedia Project Manager Name Role Phone Mauro Berumen MD Primary Care Provider Reason for Visit * Auth/Cert Specialty Diagnoses / Procedures Referred By Carroll t Referred To Contact Diagnoses STEMI (ST elevation myocardial infarction) STEMI Procedures CARDIAC CATHETERIZATION EMERGENCY Delroy Monterroso MD [facility] [place] [address] [facility] Referral ID Status Reason Start Date Expiration Date Visits Re quested Visits Authorized [id number] 1 1 Encounter Details Date Type Department Care Team (Late st Contact Info) Description 06/14/2024 7:30 AM EST - 06/14/2024 2:08 PM EST [place] [address] Bobby Loja MD [facility] [place] [address] @CABG, USING ARTERIAL GRAFT;SINGLE ARTERIAL GRAFT (WRVU 33.75) Social History Tobacco Use Types Packs/Day Years Used Date Smoking Tobacco: Every Day Cigarettes Smokeless Tobacco: Never Tobacco Cessation:Ready to Q uit: No; Counseling Given: Yes [facility] Utilities Answer Date Recorded In the [...] any time in the past 12 m [facility], were you homeless or [...] Patient Age: 69 y.o. Birthdate: 1955 Language: Syriac Race: Choose not to Disclose Ethnicity: Not nor Admit Date: 06/02/2024 Discharge Date: 06/21/2024 Attending Physician: Bobby Loja MD Follow-up Recommendations for Providers: Please continue routine management of cardiovascular risk factors including blood pressure, lipids,glucose, etc. Please note any changes to medications. Patient to follow up with PCP, Mauro Berumen MD, in 1-2 weeks. Patient to follow up with Belly Dancer, Kristen Cardenas in 2-3 weeks. Patient to follow up with Cardiac Surgeon, Dr. Bobby Loja, in 4 wks. Inpatient Provider Contact Information: [facility] [place] [address] FAX [phone] Discharge Diagnoses (Hospital Problems) Primary Diagnoses: STEMI [...] (WRVU 33.75) performed by Bobby Loja MD [facility] MAIN OR PRO CABG, ARTERY-VEIN, TWO N/A 06/14/2024 @CABG, TWO VENOUS GRAFTS & ARTERIAL GRAFT (WRVU 7.93) performed by Bobby Loja MD at [facility] OR PRO ENDOSCOPY W/VIDEO-ASST VEIN HARVEST, CABG [...] y.o. male with a PMHx of previous OH s/p PCI x3, ICM/HFrEF (LVEF 30%) s/p ICD, DMII, HTN, HLD, remote melanoma, and smoker who presented to [facility] last night via EMS after developing acute, severe chest pain while watching TV. Patient was ruled in for STEMI, given TNK, ASA, plavix, heparin gtt, and sent to [facility] for coronary angiography. LHC demonstrated severely calcified left coronary system with notable LCx 75/80% lesions and TAX STAFF ACCOUNTANT OM1 with ISR with collateral retrograde filling, [...] Hospital Course: George Mehta was admitted to [place] on 06/02/2024 via the CardiologyService with an anterior STEMI after receiving lytics at OSH. He was brought to the geophysical laboratory supervisor which showed severely calcified left coronary system with notable LCx 75/80% lesions and TAX STAFF ACCOUNTANT OM1 with ISR with collateral retrograde filling, [...] 2 tablespoons of dried fruit. Milk and vz-yqrss-wndco yogurt have 15 grams of carbs in a serving. A serving is 1 cup of milk or 3/4 cup (6 oz) of xk-knouf-cufjc yogurt. Starchy vegetables have 15 grams of carbs in a serving. A serving is ?? cup of mashed potatoes or sweet potato; 1 cup winter squash; ?? of a small baked potato; ?? cup of cooked beans; or ?? cup cooked corn or green peas. Learn how much carbs to eat each day and at each meal. A dietitian or certified corporate travel executive can teach you how to keep track [...] Bobby Loja and/or the Cardiac Surgery Physician Toe Former [employer] Team may be reached at . Weight: [...] Dr. Bobby Loja. You may use a [place] Track or treadmill but avoid any pulling [...] should resume a low fat, low cholesterol, [place] [employer] Diet/Diabetic diet. Driving: No driving [...] while being managed by your PCP and/or Belly Dancer. For future medication refills, please refer to your PCP and/or Belly Dancer after your discharge from our service. Thank you REMOVE CHEST TUBE SUTURES ON OR AFTER 06/24/2024 Home oxygen therapy: N/A Follow up appointments: You should follow up with your PCP, Mauro Berumen MD, in 1-2 weeks. You should follow up with your Belly Dancer, Dr CARDENAS. You have an appointment with your Cardiac Surgeon, Dr. Bobby Loja, in 4 wks. Cardiac Rehabilitation: George Mehta was seen today regarding participation in the outpatient Phase 2 Cardiac Rehabilitation at [facility]. The patient agrees to a referral to this program. The referral will be sent at discharge and the patient should be contacted by the program within 1-2 weeks from discharge. Future Appointments and Orders Future Orders Complete By Expires Referral to Cardiac Rehab [[id number] Custom] As directed Process Instructions: If no progress note charted, please enter Clinical details in comments. Scheduling Instructions: Questions: My question or request is: s/p CABG- cardiac rehab at [facility] Referral to Home Health [REF34 Custom] As directed Process Instructions: If no progress note charted, please enter Clinical details in comments. Scheduling Instructions: Comments: Please evaluate George Mehta for admission to Home Health. [address] [facility] [address] (home) Date of : 1955 Inpatient DOCUMENTATION FOR VNA SERVICES (INCLUDING THOSE PATIENTS WITH MEDICARE COVERAGE REQUIRINGHOME VNA SERVICES AND/OR HOSPICE SERVICES) PATIENT'S LOCATION: George Mehta [address] [facility] [address] (home) Telephone Information: Pathological Technician's Name: self In discussion with the attending physician, it is certified that this patient is under their care and that they, or a Nurse Practitioner, or Physician Toe Former Stitchdowns who is working directly with them, hada [...] for services as follows: HOME HEALTH AGENCY: [facility] [address] [place] [phone] RN orders: Cardiopulmonary assessment, incisional assessment, assess [...] issues please call the Cardiology Office at [phone] FOR MEDICARE ONLY: (please delete this section [...] As above. Signed: KEILA HANLEY APRN [facility] [place] [address] FAX [phone] Date: 06/21/2024 CC: MD Antonino Tinajero Joshua R, PA [address] [place] [address] [place] [address] documented in this encounter Discharge Instructions * [...] 2 tablespoons of dried fruit. Milk and hk-wuonb-qlqpy yogurt have 15 grams of carbs in a serving. A serving is 1 cup of milk or 3/4 cup (6 oz) of nz-pcsss-fqwos yogurt. Starchy vegetables have 15 grams of carbs in a serving. A serving is ?? cup of mashed potatoes or sweet potato; 1 cup winter squash; ?? of a small baked potato; ?? cup of cooked beans; or ?? cup cooked corn or green peas. Learn how much carbs to eat each day and at each meal. A dietitian or certified corporate travel executive can teach you how to keep track [...] Bobby Loja and/or the Cardiac Surgery Physician Toe Former [employer] Team may be reached at . Weight: [...] Dr. Bobby Loja. You may use a [place] Track or treadmill but avoid any pulling [...] should resume a low fat, low cholesterol, [place] Heart [employer] Diet/Diabetic diet. Driving: No driving [...] while being managed by your PCP and/or Belly Dancer. For future medication refills, please refer to your PCP and/or Belly Dancer after your discharge from our service. Thank you REMOVE CHEST TUBE SUTURES ON OR AFTER 06/24/2024 Home oxygen therapy: N/A Follow up appointments: You should follow up with your PCP, Mauro Berumen MD, in 1-2 weeks. You should follow up with your Belly Dancer, Dr CARDENAS. You have an appointment with your Cardiac Surgeon, Dr. Bobby Loja, in 4 wks. Cardiac Rehabilitation: George Mehta was seen today regarding participation in the outpatient Phase 2 Cardiac Rehabilitation at [facility]. The patient agrees to [...] RN - 06/21/2024 8:32 AM EST During [facility] Purposeful Rounding, an assessment of your patient's venous access was performed [facility] Service. The following tasks were [...] RN - 06/21/2024 8:31 AM EST During [facility] Purposeful Rounding, an assessment of your [...] MARIALUISA clipping. PMH of chronic HFrEF s/p CONCIERGE/ICD, IDDM2, HTN, HLD, remote melanoma, active smoker. [...] 2 tablespoons of dried fruit. Milk and hp-kgmzt-wlqpz yogurt have 15 grams of carbs in a serving. A serving is 1 cup of milk or 3/4 cup (6 oz) of iy-ogaap-nkgee yogurt. Starchy vegetables have 15 grams of carbs in a serving. A serving is ?? cup of mashed potatoes or sweet potato; 1 cup winter squash; ?? of a small baked potato; ?? cup of cooked beans; or ?? cup cooked corn or green peas. Learn how much carbs to eat each day and at each meal. A dietitian or certified corporate travel executive can teach you how to keep track [...] cheese, and peanut butter. Alejandra Baumann APRN [facility] Endocrinology Diabetes Management Pager [phone] Weekends please page [phone] * Eric Packer PA - 06/20/2024 7:44 AM EST Cardiac Surgery Progress Note George Mehta is a 69 y.o. male with a history of CAD s/p multiple PCI who presented with an anterior STEMI and was given lytics. Cath showed MV CAD without culprit vessel. He is now 6 Days Post-OpCABGx3 and MARIALUISA clipping. PMH of chronic HFrEF s/p CONCIERGE/ICD, IDDM2, HTN, HLD, remote melanoma, active smoker. 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 06/20/2024 Between the hours of 1800 - 0600 and on the weekends please page [phone]. * Alejandra Baumann APRN - 06/20/2024 7:21 AM EST Follow Up Diabetes Consult Patient Interview Blood glucose values and insulin use reviewed. health center manager BG to 59 despite decrease in glargine [...] MARIALUISA clipping. PMH of chronic HFrEF s/p CONCIERGE/ICD, IDDM2, HTN, HLD, remote melanoma, active smoker. health center manager BG to 59 despite decrease in glargine [...] based on ISF [address] [facility] Endocrinology Diabetes Management Pager [phone] Weekends please page [phone] Insulin Discharge Instructions Preliminary Diabetes Discharge Instructions [...] juice or regular (not diet) soda 6 [employer] small box of raisins 4 glucose tablets [...] 2 tablespoons of dried fruit. Milk and my-fxtnw-vaffw yogurt have 15 grams of carbs in a serving. A serving is 1 cup of milk or 3/4 cup (6 oz) of jb-awqsb-oyzdr yogurt. Starchy vegetables have 15 grams of carbs in a serving. A serving is ?? cup of mashed potatoes or sweet potato; 1 cup winter squash; ?? of a small baked potato; ?? cup of cooked beans; or ?? cup cooked corn or green peas. Learn how much carbs to eat each day and at each meal. A dietitian or certified corporate travel executive can teach you how to keep track [...] MARIALUISA clipping. PMH of chronic HFrEF s/p CONCIERGE/ICD, IDDM2, HTN, HLD, remote melanoma, active smoker. 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 Jeffy Hood MD 06/19/2024 Between the hours of 1800 - 0600 and on the weekends please page [phone]. * Alejandra Baumann, GLASS BLOWER - 06/19/2024 7:09 AM EST Follow Up Diabetes Consult Patient Interview Blood glucose values and insulin use reviewed. Jardiance added back yesterday, pig sticker low BGto 51. Glargine reduced to 45 [...] MARIALUISA clipping. PMH of chronic HFrEF s/p CONCIERGE/ICD, IDDM2, HTN, HLD, remote melanoma, active smoker. Jardiance added back yesterday. health center manager low BG to 51. Glargine reduced to [...] 2 tablespoons of dried fruit. Milk and wl-efecz-rczem yogurt have 15 grams of carbs in a serving. A serving is 1 cup of milk or 3/4 cup (6 oz) of zk-skxvb-vlfhf yogurt. Starchy vegetables have 15 grams of carbs in a serving. A serving is ?? cup of mashed potatoes or sweet potato; 1 cup winter squash; ?? of a small baked potato; ?? cup of cooked beans; or ?? cup cooked corn or green peas. Learn how much carbs to eat each day and at each meal. A dietitian or certified corporate travel executive can teach you how to keep track [...] cheese, and peanut butter. Alejandra Baumann APRN [facility] Endocrinology Diabetes Management Pager [phone] Weekends please page [phone] * Hilda Resendez PTA - 06/18/2024 9:19 AM EST Physical Therapy Note 2 Patient profile: George Mehta is a 69 y.o. male with a history of CAD s/p multiple PCI who presented with an anterior STEMI and was given lytics. Cath showed MV CAD without culprit vessel. He is now 1 Day Post-Op CABGx3 and MARIALUISA clipping. PMH of chronic HFrEF s/p CONCIERGE/ICD, IDDM2, HTN, HLD, remote melanoma, active smoker. Interval History: Per last cardiac surgery note on 06/18/2024 Cr improved 1.4 on lasix 40 iv bid -1.5L, made 2.5L urine Coreg, entresto restarted Floor status Social History: Pt lives with his in a 1 level apartment with no steps to enter. 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 He drives. He sleeps in a recliner at baseline. Precautions/Special Considerations: Sternal precautions, PIV, at risk to fall, PPM Mobility and Positioning Recommendations: Pt to utilize no AD, supervision for ambulation and transfers w/ event staff member as able. Please encourage up [...] least restrictive device Time IN / OUT: 7626-4480 Total Time: 11 minutes; TEF 1 Hilda Resendez PTA Pager: [phone] Physical Therapy Inpatient Rehabilitation Department * Keila [...] MARIALUISA clipping. PMH of chronic HFrEF s/p CONCIERGE/ICD, IDDM2, HTN, HLD, remote melanoma, active smoker. 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 Restarting jardiance #Active smoker Duoneb prn Dispo: CVCC, Full code, tx to floor Discussed with attending surgeon on rounds this morning. KEILA HANLEY, JOSÉ ANTONIO 06/18/2024 Between the hours of 1800 - 0600 and on the weekends please page [phone]. * Alejandra Baumann APRN - 06/17/2024 3:29 [...] MARIALUISA clipping. PMH of chronic HFrEF s/p CONCIERGE/ICD, IDDM2, HTN, HLD, remote melanoma, active smoker. [...] based on ISF [address] [facility] Endocrinology Diabetes Management Pager [phone] Weekends please page [phone] 35 minutes were spent over the course [...] MARIALUISA clipping. PMH of chronic HFrEF s/p CONCIERGE/ICD, IDDM2, HTN, HLD, remote melanoma, active smoker. [...] 0600 and on the weekends please page [phone]. * Raymond Carlton MD - 06/16/2024 1:11 PM EST CARDIAC CRITICAL CARE ATTENDING STAFF PROGRESS NOTE Patient seen and examined. George Mehta is a 69 y.o. male with: Active Hospital Problems Diagnosis STEMI (ST elevation myocardial infarction) Cardiac resynchronization therapy defibrillator (CONCIERGE-D) - Medtronic Amplia Cardiomyopathy, ischemic Acute on chronic heart failure with reduced ejection fraction (HFrEF, <= 40%) Coronary artery disease involving benton coronary artery of benton heart without angina pectoris Type 2 diabetes [...] encouragement provided Patient screened for f/u and speech writer met pt at bedside. Pt states [...] unless consulted in the interim. [facility] Manager * Octaviano Horvath PA - 06/16/2024 8:07 AM EST Cardiac Surgery Progress Note George Mehta is a 69 y.o. male with a history of CAD s/p multiple PCI who presented with an anterior STEMI and was given lytics. Cath showed MV CAD without culprit vessel. He is now 2 Days Post-OpCABGx3 and MARIALUISA clipping. PMH of chronic HFrEF s/p CONCIERGE/ICD, IDDM2, HTN, HLD, remote melanoma, active smoker. [...] 0600 and on the weekends please page [phone]. * Jono Fernandez, PT - 06/15/2024 4:09 PM EST Physical Therapy Evaluation Patient profile: George Mehta is a 69 y.o. male with a history of CAD s/p multiple PCI who presented with an anterior STEMI and was given lytics. Cath showed MV CAD without culprit vessel. He is now 1 Day Post-Op CABGx3 and MARIALUISA clipping. PMH of chronic HFrEF s/p CONCIERGE/ICD, IDDM2, HTN, HLD, remote melanoma, active smoker. 24h Events: From OR on Dobutamine IABP removed Bedrest ended ~2100, sedation weaned Extubated ~0200 Dobutamine weaned to 1 this morning, CI 2.6, shut off and repeat CI 2.4 Social History: Pt lives with his in a 1 level apartment with no steps to enter. 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 He drives. He sleeps [...] outlined inthis evaluation. JONO FERNANDEZ, PT Pager: [phone] Physical Therapy Inpatient Rehabilitation Department Time IN / OUT: 8023-8902 Total Time: 33 (eval) minutes * Alejandra Baumann APRN - 06/15/2024 11:39 AM EST Follow Up Diabetes Consult Patient Interview Blood glucose values and insulin use reviewed. Pt remains on an insulin drip today following [id number] MARIAULISA clipping. George continues to complain of pain. [...] MARIALUISA clipping. PMH of chronic HFrEF s/p CONCIERGE/ICD, IDDM2, HTN, HLD, remote melanoma, active smoker. [...] based on ISF [address] [facility] Endocrinology Diabetes Management Pager [phone] Weekends please page [phone] 50 minutes were spent over the course [...] elevation myocardial infarction) Cardiac resynchronization therapy defibrillator (CONCIERGE-D) - Medtronic Amplia Cardiomyopathy, ischemic Acute on chronic heart failure with reduced ejection fraction (HFrEF, <= 40%) Coronary artery disease involving benton coronary artery of benton heart without angina pectoris Type 2 diabetes [...] with h/o DM, CAD with prior PCI, CONCIERGE-D who presented with crushing chest pain, found [...] MARIALUISA clipping. PMH of chronic HFrEF s/p CONCIERGE/ICD, IDDM2, HTN, HLD, remote melanoma, active smoker. [...] sternotomy dressing CDI, saphenectomy dressing CDi Tubes/Lines/Drains: Thomas, RIJ, A-line, Mediastinal marcos and bilateral pleural [...] 0600 and on the weekends please page [phone]. * Yoli Donaldson SPRING COVERER - 06/15/2024 5:35 AM EST AMV Protocol: [...] with h/o DM, CAD with prior PCI, CONCIERGE-D who presented with crushing chest pain, found [...] 1.5 PTT 31 T/L/D Barr ETT CVL [place] Pacing wires ASSESSMENT, MANAGEMENT, and DECISION MAKIN y.o. male with h/o DM, CAD with prior PCI, CONCIERGE-D who presented with crushing chest pain, found [...] 0600 and on the weekends please page [phone]. * Chloé Cortez - 06/14/2024 9:36 AM [...] unless consulted in the interim. Chloé Cortez Hack Saw Operator * Jim Benites MD - 06/13/2024 [...] - Mildly dilated left ventricle size with upbnoccd-zy-vidhjybe decreased LV systolic function. LV ejection fraction [...] ACS/crushing chest pain, likely due to lateral OH, found to have surgical CAD with viability [...] (abstinent since admission), ASCVD with multiple prior OH and PCIs, ICM/HFrEF LVEF 30% (all territories [...] elevation myocardial infarction) Cardiac resynchronization therapy defibrillator (CONCIERGE-D) - Medtronic Amplia Cardiomyopathy, ischemic Acute on chronic heart failure with reduced ejection fraction (HFrEF, <= 40%) Coronary artery disease involving benton coronary artery of benton heart without angina pectoris Type 2 diabetes [...] PCP: Mauro Berumen MD PCP phone number: [phone] Date of Admission: 06/02/2024 ( Hospital Day 10 days ) Attending:Ethel Carrillo MD ID: 69 y.o. male with a h/o DM type 2, HTN, HLD, current smoker (2-3 cigarettes/day), HFrEF with anICD for low EF (~30%), and CAD with prior OH x3 with JENNA placed in [place], Melanoma, PAD, presented to [facility] with 1 hour of retrosternal CP (05/13) while watching TV, found to have STEMI. Active Problems: Active Hospital Problems Diagnosis STEMI (ST elevation myocardial infarction) Cardiac resynchronization therapy defibrillator (CONCIERGE-D) - Medtronic Amplia Cardiomyopathy, ischemic Acute on chronic heart failure with reduced ejection fraction (HFrEF, <= 40%) Coronary artery disease involving benton coronary artery of benton heart without angina pectoris Type 2 diabetes [...] in the last 7068 hours. Invalid input(s): [id number] Recent Labs 06/12/24 0425 06/11/24 2356 06/11/24 2025 06/11/24 1624 06/11/24 1108 06/11/24 0748 06/11/24 0357 06/11/24 0050 06/10/24 1922 06/10/24 1735 06/10/24 1125 06/10/24 0746 POCGLU 132 135 210* 81 233* 184 132 144 236* 123 216* 206* Heme No results for input(s): LDH, HAPTOGLOBIN, URICACID in the last 168 hours. ABG (Arterial Blood Gas) No results found for: PHART, PO2ART, GRM5WZI, ZKG1JBC Microbiology: Microbiology Results (Last 30 days) No results found for the last 720 hours. Imaging: Results for orders placed or performed during the hospital encounter of 06/02/24 XR Chest One View (Exam End: 06/03/2024 2:41 AM) Result Value WORKSTATION ID [id number] Impression No radiographically evident acute cardiopulmonary process. Thank you for letting us participate in the care of this patient. If you are a health care provider and have any questions regarding this report, please contact the number below. For patients who have questions please contact the health manager critical care unit that requested your imaging first. Electronically signed by: Corazon Mauro MD, [facility] ([phone]), at 06/03/2024 3:06 AM MRI Cardiac Morphology Function wwo Contrast (Exam End: 06/07/2024 1:10 PM) Result Value WORKSTATION ID [id number] Impression - Findings consistent with an ischemic [...] - Mildly dilated left ventricle size with fprqgesd-uk-fbwovexo decreased LV systolic function. LV ejection fraction [...] have questions please contact the health manager critical care unit that requested your imaging first. Electronically signed by: Kriss Alonzo MD, [facility] ([phone]), at 06/07/2024 2:[address] Chest wo Contrast (Generic) (Exam End: 06/03/2024 4:33 PM) Result Value WORKSTATION ID [id number] Impression Cardiomegaly. Biventricular ICD leads in place. Thank you for letting us participate in the care of this patient. If you are a health care provider and have any questions regarding this report, please contact the number below. For patients who have questions please contact the health manager critical care unit that requested your imaging first. Electronically signed by: Stuart Aponte MD, [facility] ([phone]), at 06/03/2024 4:47 PM XR Chest PA & Lateral (Generic) (Exam End: 06/07/2024 7:03 AM) Result Value WORKSTATION ID [id number] Impression Biventricular ICD leads intact and in [...] have questions please contact the health manager critical care unit that requested your imaging first. Electronically signed by: Stuart Aponte MD, [facility] ([phone]), at 06/07/2024 10:45 AM TTE: Limited echo performed by fellow decontamination technician to assess LV function. Left ventricle [...] Infusions: heparin (porcine) infusion 1,400 Units/hr (06/12/24 5554) PRN Meds:.insulin lispro, glucose 40% oral geL [...] ischemic cardiomyopathy with HFrEF (~30% EF), prior OH with stents, DM type 2, HTN, HLD, active smoker, presented with anterior STEMI. Angiography revealed severe multivessel CAD with extensive calcification and YUE 3 flow in all vessels, without a clear culprit lesion. Currently pain-free after TNK, Plavix, ASA, and heparin, with mildly elevated LVEDP at 40 mmHg and mild volume overload. 06/12/24: Patient stable, asymptomatic. Plan to go to geophysical laboratory supervisor for balloon pump tomorrow, then willgo to [...] CODE Dain Colón MD Cardiology, M1-S2, Pager #[phone] 06/12/24 Associated attestation - Ethel Carrillo MD [...] (abstinent since admission), ASCVD with multiple prior OH and PCIs, ICM/HFrEF LVEF 30% (all territories [...] midnights or is on the [facility] inpatient only procedure list (status C) due to: acute myocardial infarction requiring titration of IV medication and fluid monitoring and decompensated congestive heart failure requiring IV medication and fluid monitoring Ethel Carrillo MD Cardiovascular Medicine Personal Pager [phone] 06/12/2024 9:12 PM * Alejandra Baumann, GLASS BLOWER - 06/11/2024 4:21 PM EST Images from [...] too aggressive, suggest ICR 1:6 (rule of [id number]/81 = 6.25). George is up and walking [...] ischemic cardiomyopathy with HFrEF (~30% EF), prior OH with stents, DM type 2, HTN, HLD, [...] ac, metformin 1000mg BID Alejandra Baumann APRN [facility] Endocrinology Diabetes Management Pager [phone] Weekends please page [phone] 35 minutes were spent over the course [...] PCP: Mauro Berumen MD PCP phone number: [phone] Date of Admission: 06/02/2024 ( Hospital Day 9 days ) Attending:Melida Valdes MD ID: 69 y.o. male with a h/o DM type 2, HTN, HLD, current smoker (2-3 cigarettes/day), HFrEF with anICD for low EF (~30%), and CAD with prior OH x3 with JENNA placed in [facility], presented to [facility] with 1 hour of retrosternal CP (05/13) while watching TV, found to have STEMI. Active Problems: Active Hospital Problems Diagnosis STEMI (ST elevation myocardial infarction) Cardiac resynchronization therapy defibrillator (CONCIERGE-D) - Medtronic Amplia Cardiomyopathy, ischemic Acute on chronic heart failure with reduced ejection fraction (HFrEF, <= 40%) Coronary artery disease involving benton coronary artery of benton heart without angina pectoris Type 2 diabetes [...] in the last 7068 hours. Invalid input(s): [id number] Recent Labs 06/11/24 0357 06/11/24 0050 06/10/24 1922 06/10/24 1735 06/10/24 1125 06/10/24 0746 06/10/24 0423 06/10/24 0005 06/09/24 2036 06/09/24 1727 06/09/24 1152 06/09/24 0810 POCGLU 132 144 236* 123 216* 206* 154 125 197 174 211* 209* Heme No results for input(s): LDH, HAPTOGLOBIN, URICACID in the last 168 hours. ABG (Arterial Blood Gas) No results found for: PHART, PO2ART, TXF6DES, TIC3CYP Microbiology: Microbiology Results (Last 30 days) No results found for the last 720 hours. Imaging: Results for orders placed or performed during the hospital encounter of 06/02/24 XR Chest One View (Exam End: 06/03/2024 2:41 AM) Result Value WORKSTATION ID [id number] Impression No radiographically evident acute cardiopulmonary process. Thank you for letting us participate in the care of this patient. If you are a health care provider and have any questions regarding this report, please contact the number below. For patients who have questions please contact the health manager critical care unit that requested your imaging first. Electronically signed by: Corazon Mauro MD, [facility] ([phone]), at 06/03/2024 3:06 AM MRI Cardiac Morphology Function wwo Contrast (Exam End: 06/07/2024 1:10 PM) Result Value WORKSTATION ID [id number] Impression - Findings consistent with an ischemic [...] - Mildly dilated left ventricle size with izmdwyyl-mt-jgarethf decreased LV systolic function. LV ejection fraction [...] have questions please contact the health manager critical care unit that requested your imaging first. Electronically signed by: Kriss Alonzo MD, [facility] ([phone]), at 06/07/2024 2:[address] Chest wo Contrast (Generic) (Exam End: 06/03/2024 4:33 PM) Result Value WORKSTATION ID [id number] Impression Cardiomegaly. Biventricular ICD leads in place. Thank you for letting us participate in the care of this patient. If you are a health care provider and have any questions regarding this report, please contact the number below. For patients who have questions please contact the health manager critical care unit that requested your imaging first. Electronically signed by: Stuart Aponte MD, [facility] ([phone]), at 06/03/2024 4:47 PM XR Chest PA & Lateral (Generic) (Exam End: 06/07/2024 7:03 AM) Result Value WORKSTATION ID [id number] Impression Biventricular ICD leads intact and in [...] have questions please contact the health manager critical care unit that requested your imaging first. Electronically signed by: Stuart Aponte MD, [facility] ([phone]), at 06/07/2024 10:45 AM TTE: Limited echo performed by fellow decontamination technician to assess LV function. Left ventricle [...] Infusions: heparin (porcine) infusion 1,400 Units/hr (06/10/24 4170) PRN Meds:.insulin lispro, glucose 40% oral geL [...] ischemic cardiomyopathy with HFrEF (~30% EF), prior OH with stents, DM type 2, HTN, HLD, [...] CODE Dain Colón MD Cardiology, M1-S2, Pager #[phone] 06/11/24 Associated attestation - Ethel Carrillo MD [...] (abstinent since admission), ASCVD with multiple prior OH and PCIs, ICM/HFrEF LVEF 30% (all territories [...] midnights or is on the [facility] inpatient only procedure list (status C) due to: acute myocardial infarction requiring titration of IV medication and fluid monitoring and decompensated congestive heart failure requiring IV medication and fluid monitoring Ethel Carrillo MD Cardiovascular Medicine Personal Pager [phone] 06/11/2024 9:35 PM * BarbraHilary - 06/10/2024 12:39 PM EST Nutrition Services Note George Mehta is a 69 y.o. male Reason for intervention: hospital day 9 Nutrition Plan: Continue diet order: 60/60/75 CHO Level 2 Encourage good PO Lasix and Insulin noted Monitor weight Patient scheduled for a hospital day 9 nutrition evaluation. Chemistry Physics Teacher attempted to meet with pt at bedside [...] unless consulted in the interim. [facility] Manager * Mariia Montero RN - 06/10/2024 12:23 PM EST I have met with the patient to: discuss discharge planning needs. provide the [facility], Office of Care Management letter from the Television Journalist pertaining to rehab referrals. provide a letter describing our affiliations within the [facility] and educate about their right to choose where referrals are sent. provide a list of Home Health Agencies / Durable Medical Equipment vendors which serve their preferred geographic area. provided patient with [facility] Star Quality Rating handout. They have requested referrals to: [facility] [address] [place] [id number] RN / PT Anticipated d/c date: 06/20/24 Note routed to a Roller Bearing Inspector who will communicate referrals to facilities and provide any required information. * Dain Colón MD - 06/10/2024 7:17 AM EST Images from the original note were not included. . Cardiology Progress Note Patient info: Name: George Mehta : 1955 PCP: Mauro Berumen MD PCP phone number: [phone] Date of Admission: 06/02/2024 ( Hospital Day 8 days ) Attending:Melida Valdes MD ID: 69 y.o. male with a h/o DM type 2, HTN, HLD, current smoker (2-3 cigarettes/day), HFrEF with anICD for low EF (~30%), and CAD with prior OH x3 with JENNA placed in [place], Melanoma, PAD, presented to [facility] with 1 hour of retrosternal CP (05/13) while watching TV, found to have STEMI. Active Problems: Active Hospital Problems Diagnosis STEMI (ST elevation myocardial infarction) Cardiac resynchronization therapy defibrillator (CONCIERGE-D) - Medtronic Amplia Cardiomyopathy, ischemic Acute on chronic heart failure with reduced ejection fraction (HFrEF, <= 40%) Coronary artery disease involving benton coronary artery of benton heart without angina pectoris Type 2 diabetes [...] in the last 7068 hours. Invalid input(s): [id number] Recent Labs 06/10/24 0423 06/10/24 0005 06/09/24 2036 06/09/24 1727 06/09/24 1152 06/09/24 0810 06/09/24 0440 06/09/24 0034 06/08/24 2027 06/08/24 1616 06/08/24 1235 06/08/24 0810 POCGLU 154 125 197 174 211* 209* 131 186 176 159 226* 190 Heme No results for input(s): LDH, HAPTOGLOBIN, URICACID in the last 168 hours. ABG (Arterial Blood Gas) No results found for: PHART, PO2ART, STR3YXK, BHZ0ZWY Microbiology: Microbiology Results (Last 30 days) No results found for the last 720 hours. Imaging: Results for orders placed or performed during the hospital encounter of 06/02/24 XR Chest One View (Exam End: 06/03/2024 2:41 AM) Result Value WORKSTATION ID [id number] Impression No radiographically evident acute cardiopulmonary process. Thank you for letting us participate in the care of this patient. If you are a health care provider and have any questions regarding this report, please contact the number below. For patients who have questions please contact the health manager critical care unit that requested your imaging first. Electronically signed by: Corazon Mauro MD, [facility] ([phone]), at 06/03/2024 3:06 AM MRI Cardiac Morphology Function wwo Contrast (Exam End: 06/07/2024 1:10 PM) Result Value WORKSTATION ID [id number] Impression - Findings consistent with an ischemic [...] - Mildly dilated left ventricle size with jzpregin-ox-rzvvedzv decreased LV systolic function. LV ejection fraction [...] have questions please contact the health manager critical care unit that requested your imaging first. Electronically signed by: Kriss Alonzo MD, [facility] ([phone]), at 06/07/2024 2:[address] Chest wo Contrast (Generic) (Exam End: 06/03/2024 4:33 PM) Result Value WORKSTATION ID [id number] Impression Cardiomegaly. Biventricular ICD leads in place. Thank you for letting us participate in the care of this patient. If you are a health care provider and have any questions regarding this report, please contact the number below. For patients who have questions please contact the health manager critical care unit that requested your imaging first. Electronically signed by: Stuart Aponte MD, [facility] ([phone]), at 06/03/2024 4:47 PM XR Chest PA & Lateral (Generic) (Exam End: 06/07/2024 7:03 AM) Result Value WORKSTATION ID [id number] Impression Biventricular ICD leads intact and in [...] have questions please contact the health manager critical care unit that requested your imaging first. Electronically signed by: Stuart Aponte MD, [facility] ([phone]), at 06/07/2024 10:45 AM TTE: Limited echo performed by fellow decontamination technician to assess LV function. Left ventricle [...] ischemic cardiomyopathy with HFrEF (~30% EF), prior OH with stents, DM type 2, HTN, HLD, [...] CODE Dain Colón MD Cardiology, M1-S2, Pager #[phone] 06/10/24 Associated attestation - Melida Valdes MD [...] a lytic and brought directly to the Machine Joiner Cementer. Cardiac catheterization demonstrated multivessel disease with severe [...] who is agreeable Melida Valdes MD Staff Belly Dancer * Cherelle Fregoso APRN - 06/09/2024 8:59 [...] ischemic cardiomyopathy with HFrEF (~30% EF), prior OH with stents, DM type 2, HTN, HLD, [...] PCP: Mauro Berumen MD PCP phone number: [phone] Date of Admission: 06/02/2024 ( Hospital Day 7 days ) Attending:Melida Valdes MD ID: 69 y.o. male with a h/o DM type 2, HTN, HLD, current smoker (2-3 cigarettes/day), HFrEF with anICD for low EF (~30%), and CAD with prior OH x3 with JENNA placed in [place], Melanoma, PAD, presented to [facility] with 1 hour of retrosternal CP (05/13) while watching TV, found to have STEMI. Active Problems: Active Hospital Problems Diagnosis STEMI (ST elevation myocardial infarction) Acute on chronic heart failure with reduced ejection fraction (HFrEF, <= 40%) Coronary artery disease involving benton coronary artery of benton heart without angina pectoris Type 2 diabetes [...] in the last 7068 hours. Invalid input(s): [id number] Recent Labs 06/09/24 0440 06/09/24 0034 06/08/24 2027 06/08/24 1616 06/08/24 1235 06/08/24 0810 06/08/24 0409 06/07/24 2357 06/07/24 2005 06/07/24 1631 06/07/24 1105 06/07/24 1103 POCGLU 131 186 176 159 226* 190 151 188 118 174 221* 250* Heme No results for input(s): LDH, HAPTOGLOBIN, URICACID in the last 168 hours. ABG (Arterial Blood Gas) No results found for: PHART, PO2ART, YRS5WFQ, XJT5AHW Microbiology: Microbiology Results (Last 30 days) No results found for the last 720 hours. Imaging: Results for orders placed or performed during the hospital encounter of 06/02/24 XR Chest One View (Exam End: 06/03/2024 2:41 AM) Result Value WORKSTATION ID [id number] Impression No radiographically evident acute cardiopulmonary process. Thank you for letting us participate in the care of this patient. If you are a health care provider and have any questions regarding this report, please contact the number below. For patients who have questions please contact the health manager critical care unit that requested your imaging first. Electronically signed by: Corazon Mauro MD, [facility] ([phone]), at 06/03/2024 3:06 AM MRI Cardiac Morphology Function wwo Contrast (Exam End: 06/07/2024 1:10 PM) Result Value WORKSTATION ID [id number] Impression - Findings consistent with an ischemic [...] - Mildly dilated left ventricle size with qtqcuwji-yq-dxvixgzg decreased LV systolic function. LV ejection fraction [...] have questions please contact the health manager critical care unit that requested your imaging first. Electronically signed by: Kriss Alonzo MD, [facility] ([phone]), at 06/07/2024 2:[address] Chest wo Contrast (Generic) (Exam End: 06/03/2024 4:33 PM) Result Value WORKSTATION ID [id number] Impression Cardiomegaly. Biventricular ICD leads in place. Thank you for letting us participate in the care of this patient. If you are a health care provider and have any questions regarding this report, please contact the number below. For patients who have questions please contact the health manager critical care unit that requested your imaging first. Electronically signed by: Stuart Aponte MD, [facility] ([phone]), at 06/03/2024 4:47 PM XR Chest PA & Lateral (Generic) (Exam End: 06/07/2024 7:03 AM) Result Value WORKSTATION ID [id number] Impression Biventricular ICD leads intact and in [...] have questions please contact the health manager critical care unit that requested your imaging first. Electronically signed by: Stuart Aponte MD, [facility] ([phone]), at 06/07/2024 10:45 AM TTE: Limited echo performed by fellow decontamination technician to assess LV function. Left ventricle [...] Infusions: heparin (porcine) infusion 1,400 Units/hr (06/08/24 9253) PRN Meds:.glucose 40% oral geL OR dextrose [...] ischemic cardiomyopathy with HFrEF (~30% EF), prior OH with stents, DM type 2, HTN, HLD, [...] CODE Dain Colón MD Cardiology, M1-S2, Pager #[phone] 06/09/24 Associated attestation - Melida Valdes MD [...] a lytic and brought directly to the Machine Joiner Cementer. Cardiac catheterization demonstrated multivessel disease with severe [...] insertion low EF. Melida Valdes MD Staff Belly Dancer * Alejandra Baumann, GLASS BLOWER - 06/08/2024 4:10 PM EST Images from [...] ischemic cardiomyopathy with HFrEF (~30% EF), prior OH with stents, DM type 2, HTN, HLD, [...] to optimize glucose control Alejandra Baumann APRN [facility] Endocrinology Diabetes Management Pager [phone] Weekends please page [phone] 35 minutes were spent over the course [...] PCP: Mauro Berumen MD PCP phone number: [phone] Date of Admission: 06/02/2024 ( Hospital Day 6 days ) Attending:Melida Valdes MD ID: 69 y.o. male with a h/o DM type 2, HTN, HLD, current smoker (2-3 cigarettes/day), HFrEF with anICD for low EF (~30%), and CAD with prior [place] x3 with JENNA placed in [place], Melanoma, PAD, presented to [facility] with 1 hour of retrosternal CP (05/13) while watching TV, found to have STEMI. Active Problems: Active Hospital Problems Diagnosis STEMI (ST elevation myocardial infarction) Acute on chronic heart failure with reduced ejection fraction (HFrEF, <= 40%) Coronary artery disease involving benton coronary artery of benton heart without angina pectoris Type 2 diabetes [...] in the last 7068 hours. Invalid input(s): [id number] Recent Labs 06/08/24 0409 06/07/24 2357 06/07/24200406/07/24 1631 06/07/24 1105 06/07/24 1103 06/07/24 0745 06/07/24 0425 06/07/24 0008 06/06/24 2018 06/06/24 1539 06/06/24 1339 POCGLU 151 188 118 174 221* 250* 175 127 182 143 147 317* Heme No results for input(s): LDH, HAPTOGLOBIN, URICACID in the last 168 hours. ABG (Arterial Blood Gas) No results found for: PHART, PO2ART, MMG3LKY, EGK3HIA Microbiology: Microbiology Results (Last 30 days) No results found for the last 720 hours. Imaging: Results for orders placed or performed during the hospital encounter of 06/02/24 XR Chest One View (Exam End: 06/03/2024 2:41 AM) Result Value WORKSTATION ID [id number] Impression No radiographically evident acute cardiopulmonary process. Thank you for letting us participate in the care of this patient. If you are a health care provider and have any questions regarding this report, please contact the number below. For patients who have questions please contact the health manager critical care unit that requested your imaging first. Electronically signed by: Corazon Mauro MD, [facility] ([phone]), at 06/03/2024 3:06 AM MRI Cardiac Morphology Function wwo Contrast (Exam End: 06/07/2024 1:10 PM) Result Value WORKSTATION ID [id number] Impression - Findings consistent with an ischemic [...] - Mildly dilated left ventricle size with jvvcytta-hk-ouxczdbh decreased LV systolic function. LV ejection fraction [...] have questions please contact the health manager critical care unit that requested your imaging first. Electronically signed by: Kriss Alonzo MD, [facility] ([phone]), at 06/07/2024 2:[address] Chest wo Contrast (Generic) (Exam End: 06/03/2024 4:33 PM) Result Value WORKSTATION ID [id number] Impression Cardiomegaly. Biventricular ICD leads in place. Thank you for letting us participate in the care of this patient. If you are a health care provider and have any questions regarding this report, please contact the number below. For patients who have questions please contact the health manager critical care unit that requested your imaging first. Electronically signed by: Stuart Aponte MD, [facility] ([phone]), at 06/03/2024 4:47 PM XR Chest PA & Lateral (Generic) (Exam End: 06/07/2024 7:03 AM) Result Value WORKSTATION ID [id number] Impression Biventricular ICD leads intact and in [...] have questions please contact the health manager critical care unit that requested your imaging first. Electronically signed by: Stuart Aponte MD, [facility] ([phone]), at 06/07/2024 10:45 AM TTE: Limited echo performed by fellow decontamination technician to assess LV function. Left ventricle [...] ischemic cardiomyopathy with HFrEF (~30% EF), prior OH with stents, DM type 2, HTN, HLD, [...] CODE Dain Colón MD Cardiology, M1-S2, Pager #[phone] 06/08/24 Associated attestation - Melida Valdes MD [...] a lytic and brought directly to the Machine Joiner Cementer. Cardiac catheterization demonstrated multivessel disease with severe [...] Otherwise clinically stable Melida Valdes MD Staff Belly Dancer * Ross Manuel PA - 06/07/2024 12:00 PM EST Cardiac Electrophysiology CIED Interrogation/Programming Note Asked by MRI staff to evaluate and program Medtronic CONCIERGE-D to allow for MR imaging. Patient Active Problem List Diagnosis ','STEMI (ST elevation myocardial infarction) Acute on chronic heart failure with reduced ejection fraction (HFrEF, <= 40%) Coronary artery disease involving benton coronary artery of benton heart without angina pectoris Type 2 diabetes mellitus Device Data: [employer] MRI Quad CONCIERGE-D [id number] #[id number] 06/16/2019 RA Medtronic 4076 CapSureFix Novus [id number] 06/16/2019 RV Medtronic 6935M [id number] 06/16/2019 LV Medtronic 4298 Attain Performa MRI [id number] 06/16/2019 DDD @ 50/130/130 Adaptive Bi-V and LV VF >188bpm ATP, 35j x6 FVT >188-222bpm burst 2, 35jx5 VT Battery longevity: 2.5yrs; charge time 4s P wave: 2.3mV R wave: >20.0mV Atrial impedance: 458 ohms RV impedance: 646 ohms LV impedance: 722 ohms Atrial threshold: 0.5V @ 0.4ms RV threshold: LV threshold: 1.75V @ 0.4ms AP 0.2% OUTDOOR ADVENTURE INSTRUCTOR 97.7% AT/AF 0% Impression and Plan: 1. Interrogated device to determine suitability for MRI 2. Programmed to MRI safe mode - VOO @ 70 3. Scan performed 4. Programming restored to baseline settings 5. Reinterrogated to verify appropriate function and settings 6. Device follow up as previously scheduled Provider: HENOK Meyer EP Consult attending physician: Libby Barton MD EP Consult positional pager #[phone](EPMD) EP Device interrogation positional pager # [phone] * Dain Colón MD - 06/07/2024 7:09 AM EST Images from the original note were not included. . Cardiology Progress Note Patient info: Name: George Mehta : 1955 PCP: Mauro Berumen MD PCP phone number: [phone] Date of Admission: 06/02/2024 ( Hospital Day 5 days ) Attending:Melida Valdes MD ID: 69 y.o. male with a h/o DM type 2, HTN, HLD, current smoker (2-3 cigarettes/day), HFrEF with anICD for low EF (~30%), and CAD with prior [place] x3 with JENNA placed in [place], Melanoma, PAD, presented to [facility] with 1 hour of retrosternal CP (05/13) while watching TV, found to have STEMI. Active Problems: Active Hospital Problems Diagnosis STEMI (ST elevation myocardial infarction) Acute on chronic heart failure with reduced ejection fraction (HFrEF, <= 40%) Coronary artery disease involving benton coronary artery of benton heart without angina pectoris Type 2 diabetes [...] in the last 7068 hours. Invalid input(s): [id number] Recent Labs 06/07/24 0425 06/07/24 0008 06/06/24 2018 06/06/24 1539 06/06/24 1339 06/06/24 1134 06/06/24 0757 06/06/24 0653 06/05/24 2231 06/05/24 1622 06/05/24 1134 06/05/24 0727 POCGLU 127 182 143 147 317* 264* 195 187 238* 205* 211* 166 Heme No results for input(s): LDH, HAPTOGLOBIN, URICACID in the last 168 hours. ABG (Arterial Blood Gas) No results found for: PHART, PO2ART, JAD4WSI, YRK5YFV Microbiology: Microbiology Results (Last 30 days) No results found for the last 720 hours. Imaging: Results for orders placed or performed during the hospital encounter of 06/02/24 XR Chest One View (Exam End: 06/03/2024 2:41 AM) Result Value WORKSTATION ID [id number] Impression No radiographically evident acute cardiopulmonary process. Thank you for letting us participate in the care of this patient. If you are a health care provider and have any questions regarding this report, please contact the number below. For patients who have questions please contact the health manager critical care unit that requested your imaging first. Electronically signed by: Corazon Mauro MD, [facility] ([phone]), at 06/03/2024 3:[address] Chest wo Contrast (Generic) (Exam End: 06/03/2024 4:33 PM) Result Value WORKSTATION ID [id number] Impression Cardiomegaly. Biventricular ICD leads in place. Thank you for letting us participate in the care of this patient. If you are a health care provider and have any questions regarding this report, please contact the number below. For patients who have questions please contact the health manager critical care unit that requested your imaging first. Electronically signed by: Stuart Aponte MD, [facility] ([phone]), at 06/03/2024 4:47 PM TTE: Limited echo performed by fellow decontamination technician to assess LV function. Left ventricle [...] Infusions: heparin (porcine) infusion 1,400 Units/hr (06/06/24 6635) PRN Meds:.insulin lispro, potassium chloride ER OR [...] ischemic cardiomyopathy with HFrEF (~30% EF), prior OH with stents, DM type 2, HTN, HLD, [...] Dain Colón MD (PGY-1) Cardiology, M1-S2, Pager #[phone] 06/07/24 Associated attestation - Melida Valdes MD [...] a lytic and brought directly to the Machine Joiner Cementer. Cardiac catheterization demonstrated multivessel disease with severe [...] for further guidance. Melida Valdes MD Staff Belly Dancer * Dain Colón MD - 06/06/2024 7:17 AM EST Images from the original note were not included. . Cardiology Progress Note Patient info: Name: George Mehta : 1955 PCP: Mauro Berumen MD PCP phone number: [phone] Date of Admission: 06/02/2024 ( Hospital Day 4 days ) Attending:Melida Valdes MD ID: 69 y.o. male with a h/o DM type 2, HTN, HLD, current smoker (2-3 cigarettes/day), HFrEF with anICD for low EF (~30%), and CAD with prior OH x3 with JENNA placed in [place], Melanoma, PAD, presented to [facility] with 1 hour of retrosternal CP (05/13) while watching TV, found to have STEMI. Active Problems: Active Hospital Problems Diagnosis STEMI (ST elevation myocardial infarction) Acute on chronic heart failure with reduced ejection fraction (HFrEF, <= 40%) Coronary artery disease involving benton coronary artery of benton heart without angina pectoris Type 2 diabetes [...] in the last 7068 hours. Invalid input(s): [id number] Recent Labs 06/06/24 0653 06/05/24 2231 06/05/24 1622 06/05/24 1134 06/05/24 0727 06/04/24 1943 06/04/24 1526 06/04/24 1109 06/04/24 0711 06/03/24 2005 06/03/24 1748 06/03/24 1114 POCGLU 187 238* 205* 211* 166 175 154 188 182 136 191 166 Heme No results for input(s): LDH, HAPTOGLOBIN, URICACID in the last 168 hours. ABG (Arterial Blood Gas) No results found for: PHART, PO2ART, GTU1YKK, ANL9FBR Microbiology: Microbiology Results (Last 30 days) No results found for the last 720 hours. Imaging: Results for orders placed or performed during the hospital encounter of 06/02/24 XR Chest One View (Exam End: 06/03/2024 2:41 AM) Result Value WORKSTATION ID [id number] Impression No radiographically evident acute cardiopulmonary process. Thank you for letting us participate in the care of this patient. If you are a health care provider and have any questions regarding this report, please contact the number below. For patients who have questions please contact the health manager critical care unit that requested your imaging first. Electronically signed by: Corazon Mauro MD, [facility] ([phone]), at 06/03/2024 3:[address] Chest wo Contrast (Generic) (Exam End: 06/03/2024 4:33 PM) Result Value WORKSTATION ID [id number] Impression Cardiomegaly. Biventricular ICD leads in place. Thank you for letting us participate in the care of this patient. If you are a health care provider and have any questions regarding this report, please contact the number below. For patients who have questions please contact the health manager critical care unit that requested your imaging first. Electronically signed by: Stuart Aponte MD, [facility] ([phone]), at 06/03/2024 4:47 PM TTE: Limited echo performed by fellow decontamination technician to assess LV function. Left ventricle [...] ischemic cardiomyopathy with HFrEF (~30% EF), prior OH with stents, DM type 2, HTN, HLD, [...] Dain Colón MD (PGY-1) Cardiology, M1-S2, Pager #[phone] 06/06/24 Associated attestation - Melida Valdes MD [...] a lytic and brought directly to the Machine Joiner Cementer. Cardiac catheterization demonstrated multivessel disease with severe [...] management. Help appreciated Melida Valdes MD Staff Belly Dancer * Frederick Dunn MD - 06/05/2024 8:13 AM EDT Images from the original note were not included. . Cardiology Progress Note Patient info: Name: George Mehta : 1955 PCP: Mauro Berumen MD PCP phone number: [phone] Date of Admission: 06/02/2024 ( Hospital Day 3 days ) Attending:Melida Valdes MD ID: 69 y.o. male with a h/o DM type 2, HTN, HLD, current smoker (2-3 cigarettes/day), HFrEF with anICD for low EF (~30%), and CAD with prior OH x3 with JENNA placed in [place], Melanoma, PAD, presented to [facility] with 1 hour of [...] in the last 7068 hours. Invalid input(s): [id number] Recent Labs 06/05/24 1134 06/05/24 0727 06/04/24 1943 06/04/24 1526 06/04/24 1109 06/04/24 0711 06/03/24 2005 06/03/24 1748 06/03/24 1114 06/03/24 0754 06/02/24 2331 POCGLU 211* 166 175 154 188 182 136 191 166 195 156 Heme No results for input(s): LDH, HAPTOGLOBIN, URICACID in the last 168 hours. ABG (Arterial Blood Gas) No results found for: PHART, PO2ART, YLX1XST, OIK8GBZ Microbiology: Microbiology Results (Last 30 days) No results found for the last 720 hours. Imaging: Results for orders placed or performed during the hospital encounter of 06/02/24 XR Chest One View (Exam End: 06/03/2024 2:41 AM) Result Value WORKSTATION ID [id number] Impression No radiographically evident acute cardiopulmonary process. Thank you for letting us participate in the care of this patient. If you are a health care provider and have any questions regarding this report, please contact the number below. For patients who have questions please contact the health manager critical care unit that requested your imaging first. Electronically signed by: Corazon Mauro MD, [facility] ([phone]), at 06/03/2024 3:[address] Chest wo Contrast (Generic) (Exam End: 06/03/2024 4:33 PM) Result Value WORKSTATION ID [id number] Impression Cardiomegaly. Biventricular ICD leads in place. Thank you for letting us participate in the care of this patient. If you are a health care provider and have any questions regarding this report, please contact the number below. For patients who have questions please contact the health manager critical care unit that requested your imaging first. Electronically signed by: Stuart Aponte MD, [facility] ([phone]), at 06/03/2024 4:47 PM TTE: Limited echo performed by fellow decontamination technician to assess LV function. Left ventricle [...] ischemic cardiomyopathy with HFrEF (~30% EF), prior OH with stents, DM type 2, HTN, HLD, [...] all the information they need regarding the CONCIERGE-D.Plan for MRI tomorrow. Starting 40 mg IV [...] a lytic and brought directly to the Machine Joiner Cementer. Cardiac catheterization demonstrated multivessel disease with severe [...] maintenance of 40. Melida Valdes MD Staff Belly Dancer * Migel Javier RN - 06/05/2024 6:21 AM EDT Implanted device record scanned into: Chart Review-->Media-->External Cardiology-->03/25/2024. Medtronic Amplia MRI Quad CRTD [id number] Serial #: [id number] DDD mode A + Bi/V Rates 50-130 Migel Javier RN * Dain Colón MD - 06/04/2024 11:16 AM EDT Implant Records Requested Type: CONCIERGE-D Volunteer Assistant: [employer]tr[employer] Product: [id number] Amplia MRI MRI compatibility: Compatible for 1.5-3 T Model #: [id number] Placed at: [place], [place] Records requested for MRI: 1. Operative report 2. Implant log I requested that these records be sent to our MRI department, Dain Colón MD 06/04/24 11:58 AM * Dain Colón MD - 06/04/2024 6:57 AM EDT Images from the original note were not included. . Cardiology Progress Note Patient info: Name: George Mehta : 1955 PCP: Mauro Berumen MD PCP phone number: [phone] Date of Admission: 06/02/2024 ( Hospital Day 2 days ) Attending:Delroy Fofana MD ID: 69 y.o. male with a h/o DM type 2, HTN, HLD, current smoker (2-3 cigarettes/day), HFrEF with anICD for low EF (~30%), and CAD with prior OH x3 with JENNA placed in [place], Melanoma, PAD, presented to [facility] with 1 hour of [...] in the last 7068 hours. Invalid input(s): [id number] Recent Labs 06/03/24 2005 06/03/24 1748 06/03/24 1114 06/03/24 0754 06/02/24 2331 POCGLU 136 191 166 195 156 Heme No results for input(s): LDH, HAPTOGLOBIN, URICACID in the last 168 hours. ABG (Arterial Blood Gas) No results found for: PHART, PO2ART, MCJ9HMB, JVQ5KEZ Microbiology: Microbiology Results (Last 30 days) No results found for the last 720 hours. Imaging: Results for orders placed or performed during the hospital encounter of 06/02/24 XR Chest One View (Exam End: 06/03/2024 2:41 AM) Result Value WORKSTATION ID [id number] Impression No radiographically evident acute cardiopulmonary process. Thank you for letting us participate in the care of this patient. If you are a health care provider and have any questions regarding this report, please contact the number below. For patients who have questions please contact the health manager critical care unit that requested your imaging first. Electronically signed by: Corazon Mauro MD, [facility] ([phone]), at 06/03/2024 3:[address] Chest wo Contrast (Generic) (Exam End: 06/03/2024 4:33 PM) Result Value WORKSTATION ID [id number] Impression Cardiomegaly. Biventricular ICD leads in place. Thank you for letting us participate in the care of this patient. If you are a health care provider and have any questions regarding this report, please contact the number below. For patients who have questions please contact the health manager critical care unit that requested your imaging first. Electronically signed by: Stuart Aponte MD, [facility] ([phone]), at 06/03/2024 4:47 PM TTE: Limited echo performed by fellow decontamination technician to assess LV function. Left ventricle [...] ischemic cardiomyopathy with HFrEF (~30% EF), prior OH with stents, DM type 2, HTN, HLD, [...] -Lasix 40 mg IV given in the geophysical laboratory supervisor; assess diuretic response, consider re-dosing -Continue carvedilol; [...] a lytic and brought directly to the Machine Joiner Cementer. Cardiac catheterization demonstrated multivessel disease with severe [...] Friday -Diuresis with Jovanni Valdes MD Staff Belly Dancer * Fatmata Mcallister PT - 06/03/2024 3:29 [...] vs PCI) Fatmata Mcallister PT, MSPT Pager [phone] Inpatient Physical Therapy * Marlin Gómez MD [...] Marlin Gómez MD Cardiology S2, Pager # [phone] 06/03/2024 * Delroy Fofana MD - 06/03/2024 7:16 AM EDT Images from the original note were not included. . Cardiology Progress Note Patient info: Name: George Mehta : 1955 PCP: Mauro Berumen MD PCP phone number: [phone] Date of Admission: 06/02/2024 ( Hospital Day 1 day ) Attending:Nuha Rojo MD ID: 69 y.o. male with a h/o DM type 2, HTN, HLD, current smoker (2-3 cigarettes/day), HFrEF with anICD for low EF (~30%), and CAD with prior OH x3 with JENNA placed in [place], Melanoma, PAD, presented to [facility] with 1 hour of [...] in the last 7068 hours. Invalid input(s): [id number] Recent Labs 06/02/24 2331 POCGLU 156 Heme No results for input(s): LDH, HAPTOGLOBIN, URICACID in the last 168 hours. ABG (Arterial Blood Gas) No results found for: PHART, PO2ART, LTX5MQK, OWV4YNK Microbiology: Microbiology Results (Last 30 days) No results found for the last 720 hours. Imaging: Results for orders placed or performed during the hospital encounter of 06/02/24 XR Chest One View (Exam End: 06/03/2024 2:41 AM) Result Value WORKSTATION ID [id number] Impression No radiographically evident acute cardiopulmonary process. Thank you for letting us participate in the care of this patient. If you are a health care provider and have any questions regarding this report, please contact the number below. For patients who have questions please contact the health manager critical care unit that requested your imaging first. Electronically signed by: Corazon Mauro MD, [facility] ([phone]), at 06/03/2024 3:06 AM TTE: Limited echo performed by fellow decontamination technician to assess LV function. Left ventricle [...] ischemic cardiomyopathy with HFrEF (~30% EF), prior OH with stents, DM type 2, HTN, HLD, [...] -Lasix 40 mg IV given in the geophysical laboratory supervisor; assess diuretic response, consider re-dosing -Continue carvedilol; [...] of care per Dain Colón MD (medical oncology physician). Please refer to his note above for details. Very pleasant 69 year old male but he is obese, diabetic, and he is a SMOKER with known prior CAD and moderately reduced LVEF (30%). He has a pacer. History of surgical resection of melanoma on his head. The patient was transferred overnight to [facility] as a STEMI. He was treated initially with a lytic (TNK) and brought directly to the geophysical laboratory supervisor. The cath demonstrated 3VD with diffuse disease [...] - 06/13/2024 10:58 AM EST ICU Blue (#[id number]) H&P Patient info: Name: George Mehta : 1955 PCP: Mauro Berumen MD PCP phone number: [phone] Date of Admission: 06/02/2024 ( Hospital Day 11 days ) Attending:Haja Byrnes MD ID: George Mehta is a 69 y.o. male with a h/o DM type 2, HTN, HLD, current smoker (2-3 cigarettes/day), HFrEF with an ICD for low EF (~30%), and CAD with prior OH x3 with JENNA placed in [place], Melanoma, PAD, presented to [facility] with 1 hour of retrosternal CP (05/13) while watching TV, foundto have STEMI. HPI: Shahnaz Scanlon H&P 06/02 69 y.o. male with a h/o DM type 2, HTN, HLD, current smoker (2-3 cigarettes/day), HFrEF with an ICD for low EF (~30%), and CAD with prior OH x3 with JENNA placed in [place], Melanoma, PAD, presented to [facility] with 1 hour of retrosternal CP (05/13) while watching TV. CP was non-radiating, not asso ciated with diaphoresis, nausea, or SOB. Denies orthopnea, MARTÍNEZ, palpitations, or LE edema. ECG showed findings consistent with anterior STEMI. He received TNK and was transferred for PCI. Coronary angiography showed a small, non-dominant RCA with dcyb-lx-cqwuvlyv disease and a dominant,heavily calcified left system with prior stents in the LAD and OM. The LM bifurcates into the LAD and LCX, both heavily calcified. The proximal LCX has a 75% calcified, aneurysmal lesion, and an 80% calcified lesion distally before a large OM2. OM1 is a TAX STAFF ACCOUNTANT with in-stent restenosis, filling retrograde via collaterals. [...] 40 mg Lasix was administered in the geophysical laboratory supervisor. Cardiac surgery was consulted and plan for [...] Blood Gas) No results for input(s): PHART, ZSU4EAY, PO2ART, WAX8WPO, LACTATEVEN, UBJ8JOC, PFRATIOART2 in the last 168 hours. VBG (Venous Blood Gas) Recent Labs 06/10/24 1742 PHVEN 7.34 PO2VEN 24 BRE9LBO 27.4 Mixed Venous Sat No results for input(s): W1WRWL9 in the last 168 hours. Intake/Output Summary [...] in the last 7068 hours. Invalid input(s): ELZQNKGBRDD4B Recent Labs 06/13/24 0741 06/13/24 0325 06/12/24 2353 06/12/24 1932 06/12/24 1541 06/12/24 1121 06/12/24 0800 06/12/24 0425 06/11/24 2356 06/11/24 2025 06/11/24 1624 06/11/24 1108 POCGLU 126 99 141 158 113 207* 169 132 135 210* 81 233* Heme No results for input(s): LDH, HAPTOGLOBIN, URICACID in the last 168 hours. ABG (Arterial Blood Gas) No results for input(s): PHART, NUH1TVL, PO2ART, TJX2WMV, LACTATEVEN, QBZ8UPJ, PFRATIOART2 in the last 168 hours. VBG (Venous Blood Gas) Recent Labs 06/10/24 1742 PHVEN 7.34 PO2VEN 24 BFU8OKK 27.4 Mixed Venous Sat No results for input(s): I1VTOR0 in the last 168 hours. Microbiology: Microbiology Results (Last 30 days) No results found for the last 720 hours. Assessment & Plan: George Mehta is a 69 y.o. male with CAD, ischemic cardiomyopathy with HFrEF (~30% EF), prior OH with stents, DM type 2, HTN, HLD, active smoker, presented with anterior STEMI. Angiography revealedsevere multivessel CAD with extensive calcification and YUE 3 flow in all vessels, without a clearculprit lesion. Currently pain-free after TNK, Plavix, ASA, and heparin, with mildly elevated LVEDPat 40 mmHg and mild volume overload. Admitted to [facility] for clarence-operative management following IABP placement. Planned for CABG 06/14. 06/13/2024 Patient now s/p IABP placement. Procedure occurred without complication. IABP set to 1:1. Will continue with heparin for ASCVD. Plan for CABG 06/14. Patient NPO at MO. #ASCVD / STEMI: -Holding Plavix; continue ASA [...] (Give Meds) Daily Healthy Menu Choices/Cardiac diet ([facility]-Diet) DVT Prophylaxis: SCD [...] TUD (abstinent since admission), ASCVD with multipleprior OH and PCIs, ICM/HFrEF LVEF 30% (all territories [...] is in the chart Rebeca Prado MD Bullet Assembly Press Operator PGY6 [id number] * Shahnaz Scanlon MD [...] low EF (~30%), and CAD with prior OH x3 with JENNA placed in [facility], presented to [facility] with 1 hour of retrosternal CP (05/13) while watching TV. CP was non-radiating, not assoc iated with diaphoresis, nausea, or SOB. Denies orthopnea, MARTÍNEZ, palpitations, or LE edema. ECG showed findings consistent with anterior STEMI. He received TNK and was transferred for PCI. Coronary angiography showed a small, non-dominant RCA with eony-hi-xscfdhsn disease and a dominant,heavily calcified left system with prior stents in the LAD and OM. The LM bifurcates into the LAD and LCX, both heavily calcified. The proximal LCX has a 75% calcified, aneurysmal lesion, and an 80% calcified lesion distally before a large OM2. OM1 is a TAX STAFF ACCOUNTANT with in-stent restenosis, filling retrograde via collaterals. [...] 40 mg Lasix was administered in the geophysical laboratory supervisor. Past Medical History: As per HPI Significant [...] Affect: Mood normal. Behavior: Behavior normal. Diagnostics: [facility] 06/02/2024 Coronary angiography revealed small [...] ischemic cardiomyopathy with HFrEF (~30% EF), prior OH with stents, DM type 2, HTN, HLD, [...] -Lasix 40 mg IV given in the geophysical laboratory supervisor; assess diuretic response. -Continue carvedilol; hold Entresto [...] & Follow-up Care: Contact information for follow-up [facility] [address] [facility] [address] Cardiac Rehab, [address] [address] JAMIE GRAMAJO confirmed with [facility] that they [...] Roberts RN - 06/18/2024 10:[address] [facility] CARDIAC REHABILITATION George Mehta was seen today regarding participation in the outpatient Phase 2 Cardiac Rehabilitation at [facility]. The patient agrees to [...] Payor: [employer] MANAGED MEDICARE / Plan: AARP [facility] MANAGED MEDICARE COMPLETE / Product Type: *No Product type* / Secondary Insurance: N/A Last Physical Therapy Recommendation: (home with ) with to be determined (06/15/24 1028) Plan for discharge is: Home w/ Services Outpatient Agency/Support Group Needs: Homecare agency Agency Choices: [facility] Home Health Services: Medication checks, Registered Nurse, Physical Therapy Agency Referrals: pending clinical course and PT/OT recs [facility] [address] [facility] [address] PHONE: [phone] FAX: [phone] Transportation: family or friend will provide Barriers [...] recs Patient is insured through: Primary Insurance: [facility] MEDICARE Payor: [facility] MEDICARE / Plan: [facility] MANAGED MEDICARE COMPLETE / Product Type: *No Product type* / Secondary Insurance: N/A Plan for discharge is: Home w/ Services Outpatient Agency/Support Group Needs: Homecare agency Agency Choices: [facility] Services: Medication checks, Registered Nurse, Physical Therapy Agency Referrals: pending clinical course and PT/OT recs [facility] [address] [place] [address] PHONE: [phone] FAX: [phone] Transportation: family or friend will provide Barriers [...] Loja MD - 06/14/2024 8:[address] [facility] Operative Note Patient Name: George Mehta : [id number] MR#: [id number] Case Date: 06/14/2024 Surgeon: Surgeons and Role: * Bobby Loja MD - Primary * Rashi Bass PA - Physician Toe Former Stitchdowns Preoperative diagnosis: CAD, MARIALUISA flickering mass on [...] procedures today and tomorrow. Report called to [facility] - all belongings with patient. PLAN MOVING FORWARD: geophysical laboratory supervisor and transfer to [facility]. INDIVIDUALIZED FALL PREVENTION [...] No Patient is insured through: Primary Insurance: [facility] MANAGED MEDICARE Payor: [facility] MANAGED MEDICARE / Plan: AARP [employer] MANAGED MEDICARE COMPLETE / Product Type: *No Product type* / Secondary Insurance: N/A Plan for discharge is: Home w/ Services Outpatient Agency/Support Group Needs: Homecare agency, Agency Choices: [facility] Home Health Services: Medication checks, Registered Nurse, Physical Therapy Agency Referrals: [facility] [address] [place] [address] RN / PT Routed 06/10 Transportation: family [...] with home health services when medically ready. guide excursion/Band Aid Machine Operator will continue to follow patient???s progress and remain available if situation changes for coordination of care, psychosocial support and/or discharge planning. Anticipated Date of Discharge: 06/18/2024 Mariia Montero RN CM Extension [phone] * Plan of Care - Migel Javier [...] No Patient is insured through: Primary Insurance: [employer] [facility] MEDICARE Payor: [employer] [facility] MEDICARE / Plan: [facility] MEDICARE COMPLETE / Product Type: *No Product [...] consult for high risk PCI vs CABG guide excursion/Band Aid Machine Operator will continue to follow patient???s progress and remain available if situation changes for coordination of care, psychosocial support and/or discharge planning. Anticipated Date of Discharge: 06/11/2024 Mariia Montero RN Extension [phone] * Plan of Care - Becca Hope [...] ischemic cardiomyopathy with HFrEF (~30% EF), prior OH with stents, DM type 2, HTN, HLD, [...] and to provide a review of termite control servicer diabetes care. Diabetes History: George Mehta has [...] Breakfast- varies - eggs with khoury or kyrgyz muffin Lunch- turkey sandwich Supper- meat and [...] Infusions: heparin (porcine) infusion 1,400 Units/hr (06/06/24 5128) PRN: insulin lispro, potassium chloride ER OR [...] ischemic cardiomyopathy with HFrEF (~30% EF), prior OH with stents, DM type 2, HTN, HLD, [...] Baumann APRN Endocrinology Diabetes Management Service Pager: [phone] Weekends please page [phone] 80 minute visit was spent in counseling [...] y.o. male with a PMHx of previous OH s/p PCI x3, ICM/HFrEF (LVEF 30%) s/p ICD, DMII, HTN, HLD, remote melanoma, and smoker who presented to [facility] last night via EMS after developing acute, severe chest pain while watching TV. Patient was ruled in for STEMI, given TNK, ASA, plavix, heparin gtt, and sent to [facility] for coronary angiography. LHC demonstrated severely calcified left coronary system with notable LCx 75/80% lesions and TAX STAFF ACCOUNTANT OM1 with ISR with collateral retrograde filling, [...] elevation myocardial infarction) Past Medical History: previous OH s/p PCI x3 ICM/HFrEF (LVEF 30%) s/p [...] is large. OM1 appears to be a TAX STAFF ACCOUNTANT, with in stentrestenosis and fills retrograde via [...] y.o. male admitted with STEMI s/p TNK, [facility] showing multivessel CAD including ISR, [...] to our service. Signed: Paula Treviño PA-C [place] [facility] of Cardiac Surgery Date: 06/03/2024 * Initial Assessments - Natalie, Catina A, MATHEMATICS INSTRUCTOR - 06/03/2024 10:32 AM EDT Office of Care Management Initial Assessment CHINA Humphrey reviewed record and discussed patient with Care Team. Source of Information: Team, bedside nurse, medical record, and Patient CHINA Introduced self/reviewed role; services accepted. Admitted From: Transfer from another hospital Location: [facility] Reason for Hospitalization: Chest Pain while watching TV, doctors said I had a heart attack Past medical History: No past medical history on file. Hospitalizations Within the Past 30 Days: no previous admission in last 30 days Current Decision-Making Capacity: Self If AD's have not been completed the following surrogate would be surrogate decision maker per [place] surrogate decision making law. (Only good for 180 days) Any patient receiving care in [place] must abide by [place] law. The hierarchy for surrogate decision making [...] (i) The agent with financial power of civil litigation attorney or a conservator appointed in accordance [...] has the electric, gas, oil, or water [employer] threatened to shut off services in your [...] in the bathroom) Home Address confirmed as: [address] [place] [address] [address] [facility] [address] Social & Family Supports: All names listed [...] Pertinent/Service Specific Information: Health/Prescription Coverage: Primary Insurance: [facility] [employer] MEDICARE Payor: [facility] MANAGED MEDICARE / Plan: [facility] MANAGED MEDICARE COMPLETE / Product Type: *No Product type* / Secondary Insurance: N/A ; Prescription Coverage: Yes Preferred Pharmacy: [id number] - [place], [place] - [address] [facility] [address] [place] [id number] [place] Status: Patient is a : No Primary Care Provider confirmed: Mauro Berumen MD [phone] Patient/Caregiver Goals of Treatment: Potential Needs for [...] care as indicated. [facility], [phone]. [phone] * Brief Op Note - Angeles Gaxiola PA - 06/03/2024 12:23 AM EDT Preliminary Cardiac Catheterization Procedure Note: Patient Name: George Mehta : [id number] MR#: [id number] Case Date: 06/02/2024 - 06/03/2024 Rail Tractor Operator: Surgeons and Role: * Nuha Shen MD - Primary * Angeles Gaxiola PA - Physician [employer] Preoperative diagnosis: STEMI Postoperative diagnosis: * STEMI * Procedure(s) performed: RRA access [facility] Coronary angiogram IVUS LM/LAD/LCX Access: 6 Fr RRA A time-out was conducted prior to the start of the procedure to verify the correct patient and procedure, procedure location, and all relevant critical information. Preliminary findings: 69 year old current smoker (1-2 cigarette's per day), DM type 2, hypertension, dyslipidemia, ICD for HFrEF/low EF (~30%), CAD with prior [place] and 3 stents historically (in [place]) who presented to [facility] with 1 hour of [...] is large. OM1 appears to be a TAX STAFF ACCOUNTANT, with in stentrestenosis and fills retrograde via [...] receive 40 mg of lasix in the geophysical laboratory supervisor. 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) 06/14/2024 7:34 AM EST CAD Endoscopy W/Video-Asst Vein [place], Cabg ([id number]) 06/14/2024 7:34 AM EST CAD Cabg, Artery-Vein, Two ([id number]) 06/14/2024 7:34 AM EST CAD Cabg, Arterial, Single ([id number]) 06/14/2024 7:34 AM EST CAD TRANSESOPHAGEAL ECHOCARDIOGRAM IN THE OR Routine 06/14/2024 7:20 AM EST Coronary artery disease involving benton coronary artery of benton heart without angina pectoris POC, GLUCOSE Routine [...] * POC, GLUCOSE (06/21/2024 3:51 AM EST) [facility] Glucometer, POC 142 65 - 199 mg/dL 06/21/2024 3:51 AM EST [facility] Comment:Supplemental ranges: <140 mg/dL before meals <180 mg/dL all other times of the day. Blood CAPILLARY BLOOD / Unknown 06/21/2024 3:51 AM EST 06/21/2024 3:51 AM EST Bobby Loja MD POINT OF CARE TEST O RDERABLES [facility] [place] [address] * (ABNORMAL) Basic Metabolic Panel (06/21/2024 2:09 AM EST) Glucose 169 65 - 199 mg/dL 06/21/2024 3:10 AM EST [facility] Comment:Glucose Concentratio n >=200 mg/dL plus symptoms is consistent with Diabetes Mellitus. Blood Urea Nitrogen 27(H) 10 - 20 mg/dL 06/21/2024 3:10 AM EST [facility] Creatinine 1.24 0.80 - 1.50 mg/dL 06/21/2024 3:10 AM [facility] Sodium 138 135 - 145 mMol/L 06/21/2024 3:10 AM [facility] Potassium 4.2 3.5 - 5.0 mMol/L 06/21/2024 3:10 AM [facility] Chloride 100 98 - 107 mMol/L 06/21/2024 3:10 AM [facility] Carbon Dioxide 27 22 - 31 mMol/L 06/21/2024 3:10 AM [facility] Anion Gap 11 5 - 15 mMol/L 06/21/2024 3:10 AM [facility] Calcium 8.7 8.5 - 10.5 mg/dL 06/21/2024 3:10 AM [facility] Est Glomerular Filtration Rate - Male 64 mL/min/1. 73 m?? 06/21/2024 3:10 AM [facility] Comment: [...] APRN CHEMISTRY ORDERABL ES Performing Organization Address [facility] Co de Phone Number [facility] [place] [address] * POC, GLUCOSE (06/21/2024 12:04 AM EST) [...] O RDERABLES [facility] [place] [address] * POC, GLUCOSE (06/20/2024 11:14 PM EST) Glucometer, POC 67 65 - 199 mg/dL 06/20/2024 11:14 PM EST [facility] Comment:Supplemental ranges: <140 mg/dL before meals <180 mg/dL all other times of the day. Blood CAPILLARY BLOOD / Unknown 06/20/2024 11:14 PM EST 06/20/2024 11:14 PM EST Bobby Loja MD POINT OF CARE TEST O NIKA Performing Organization Address [facility] Co de Phone Number [facility] [place] [address] * POC, GLUCOSE (06/20/2024 7:16 PM EST) Glucometer, POC 132 65 - 199 mg/dL 06/20/2024 7:16 PM EST [facility] Comment:Supplemental ranges: <140 mg/dL before meals <180 mg/dL all other times of the day. Blood CAPILLARY BLOOD / Unknown 06/20/2024 7:16 PM EST 06/20/2024 7:16 PM EST Bobby Loja MD POINT OF CARE TEST Abimael MAHER Performing Organization Address [facility] Co de Phone Number [facility] [place] [address] * POC, GLUCOSE (06/20/2024 3:39 PM EST) Glucometer, POC 124 65 - 199 mg/dL 06/20/2024 3:40 PM EST [facility] Comment:Supplemental ranges: <140 mg/dL before meals <180 mg/dL all other times of the day. Blood CAPILLARY BLOOD / Unknown 06/20/2024 3:39 PM EST 06/20/2024 3:40 PM EST Bobby Loja MD POINT OF CARE TEST O NIKA Performing Organization Address [facility] Co de Phone Number [facility] [place] [address] * POC, GLUCOSE (06/20/2024 12:02 PM EST) [...] CARE TEST O NIKA Performing Organization Address [facility] Co de Phone Number [facility] [place] [address] * POC, GLUCOSE (06/20/2024 7:10 AM EST) [...] CARE TEST Abimael MAHER Performing Organization Address [facility] Co de Phone Number [facility] [place] [address] * (ABNORMAL) Basic Metabolic Panel (06/20/2024 2:28 AM EST) Glucose 79 65 - 199 mg/dL 06/20/2024 3:06 AM [facility] Comment:Glucose Concentratio n >=200 mg/dL plus symptoms is consistent with Diabetes Mellitus. Blood Urea Nitrogen 38(H) 10 - 20 mg/dL 06/20/2024 3:06 AM [facility] Creatinine 1.39 0.80 - 1.50 mg/dL 06/20/2024 3:06 AM [facility] Sodium 137 135 - 145 mMol/L 06/20/2024 3:06 AM [facility] Potassium 3.6 3.5 - 5.0 mMol/L 06/20/2024 3:06 AM [facility] Chloride 100 98 - 107 mMol/L 06/20/2024 3:06 AM EST [facility] Carbon Dioxide 29 22 - 31 mMol/L 06/20/2024 3:06 AM [facility] Anion Gap 8 5 - 15 mMol/L 06/20/2024 3:06 AM [facility] Calcium 8.4(L) 8.5 - 10.5 mg/dL 06/20/2024 3:06 AM [facility] Est [...] ORDERABL ES [facility] [place] [address] * POC, GLUCOSE (06/20/2024 12:32 AM EST) Glucometer, POC 86 65 - 199 mg/dL 06/20/2024 12:32 AM EST [facility] Comment:Supplemental ranges: <140 mg/dL before meals <180 mg/dL all other times of the day. Blood CAPILLARY BLOOD / Unknown 06/20/2024 12:32 AM EST 06/20/2024 12:32 AM EST Bobby Loja MD POINT OF CARE TEST O RALPHERAPIETER Performing Organization Address [facility] Co de Phone Number [facility] [place] [address] * (ABNORMAL) POC, GLUCOSE (06/20/2024 12:02 AM EST) Glucometer, POC 59(L) 65 - 199 mg/dL 06/20/2024 12:02 AM EST [facility] Comment:Supplemental ranges: <140 mg/dL before meals <180 mg/dL all other times of the day. Blood CAPILLARY BLOOD / Unknown 06/20/2024 12:02 AM EST 06/20/2024 12:03 AM EST Bobby Loja MD POINT OF CARE TEST O NIKA Performing Organization Address [facility] Co de Phone Number [facility] [place] [address] * POC, GLUCOSE (06/19/2024 8:15 PM EST) Glucometer, POC 131 65 - 199 mg/dL 06/19/2024 8:15 PM EST [facility] Comment:Supplemental ranges: <140 mg/dL before meals <180 mg/dL all other times of the day. Blood CAPILLARY BLOOD / Unknown 06/19/2024 8:15 PM EST 06/19/2024 8:15 PM EST Bobby Loja MD POINT OF CARE TEST O NIKA Performing Organization Address [facility] Co de Phone Number [facility] [place] [address] * POC, GLUCOSE (06/19/2024 6:01 PM EST) Glucometer, POC 129 65 - 199 mg/dL 06/19/2024 6:01 PM EST [facility] Comment:Supplemental ranges: <140 mg/dL before meals <180 mg/dL all other times of the day. Blood CAPILLARY BLOOD / Unknown 06/19/2024 6:01 PM EST 06/19/2024 6:02 PM EST Bobby Loja MD POINT OF CARE TEST O NIKA Performing Organization Address [facility] Co de Phone Number [facility] [place] [address] * POC, GLUCOSE (06/19/2024 4:51 PM EST) Glucometer, POC 155 65 - 199 mg/dL 06/19/2024 4:51 PM EST [facility] Comment:Supplemental ranges: <140 mg/dL before meals <180 mg/dL all other times of the day. Blood CAPILLARY BLOOD / Unknown 06/19/2024 4:51 PM EST 06/19/2024 4:51 PM EST Bobby Loja MD POINT OF CARE TEST Abimael MAHER Performing Organization Address [facility] de Phone Number [facility] [place] [address] * POC, GLUCOSE (06/19/2024 12:37 PM EST) Glucometer, POC 136 65 - 199 mg/dL 06/19/2024 12:37 PM EST [facility] Comment:Supplemental ranges: <140 mg/dL before meals <180 mg/dL all other times of the day. Blood CAPILLARY BLOOD / Unknown 06/19/2024 12:37 PM EST 06/19/2024 12:37 PM EST Bobby Loja MD POINT OF CARE TEST O NIKA Performing Organization Address [facility] Co de Phone Number [facility] [place] [address] * POC, GLUCOSE (06/19/2024 11:20 AM EST) Glucometer, POC 185 65 - 199 mg/dL 06/19/2024 11:21 AM EST [facility] Comment:Supplemental ranges: <140 mg/dL before meals <180 mg/dL all other times of the day. Blood CAPILLARY BLOOD / Unknown 06/19/2024 11:20 AM EST 06/19/2024 11:21 AM EST Bobby Loja MD POINT OF CARE TEST O NIKA Performing Organization Address [facility] Co de Phone Number [facility] [place] [address] * POC, GLUCOSE (06/19/2024 7:21 AM EST) Glucometer, POC 125 65 - 199 mg/dL 06/19/2024 7:21 AM EST [facility] Comment:Supplemental ranges: <140 mg/dL before meals <180 mg/dL all other times of the day. Blood CAPILLARY BLOOD / Unknown 06/19/2024 7:21 AM EST 06/19/2024 7:22 AM EST Bobby Loja MD POINT OF CARE TEST Abimael MAHER Performing Organization Address [facility] Co de Phone Number [facility] [place] [address] * POC, GLUCOSE (06/19/2024 4:52 AM EST) [...] CARE TEST O NIKA Performing Organization Address [place]/[facility] Co de Phone Number [facility] [place] [address] * POC, GLUCOSE (06/19/2024 4:13 AM EST) Glucometer, POC 67 65 - 199 mg/dL 06/19/2024 4:13 AM EST [facility] Comment:Supplemental ranges: <140 mg/dL before meals <180 mg/dL all other times of the day. Blood CAPILLARY BLOOD / Unknown 06/19/2024 4:13 AM EST 06/19/2024 4:13 AM EST Bobby Loja MD POINT OF CARE TEST O NIKA Performing Organization Address [facility] Co de Phone Number [facility] [place] [address] * (ABNORMAL) POC, GLUCOSE (06/19/2024 3:48 AM EST) Glucometer, POC 51(LLL) 65 - 199 mg/dL 06/19/2024 3:48 AM EST [facility] Comment:Supplemental ranges: <140 mg/dL before meals <180 mg/dL all other times of the day. Blood CAPILLARY BLOOD / Unknown 06/19/2024 3:48 AM EST 06/19/2024 3:48 AM EST Bobby Loja MD POINT OF CARE TEST O NIKA Performing Organization Address [place]/[facility] Co de Phone Number [facility] [place] [address] * (ABNORMAL) Basic Metabolic Panel (06/19/2024 3:44 [...] - 145 mMol/L 06/19/2024 4:48 AM EST [facility] Potassium 3.6 3.5 - 5.0 mMol/L 06/19/2024 4:48 AM EST [facility] Chloride 100 98 - 107 mMol/L 06/19/2024 4:48 AM EST [facility] Carbon Dioxide 29 22 - 31 mMol/L 06/19/2024 4:48 AM [facility] Anion Gap 9 5 - 15 mMol/L 06/19/2024 4:48 AM [facility] Calcium 8.8 8.5 - 10.5 mg/dL 06/19/2024 4:48 AM EST [facility] Est Glomerular Filtration Rate - Male 61 mL/min/1. 73 m?? 06/19/2024 4:48 AM [facility] Comment: [...] ORDERABL ES [facility] [place] [address] * POC, GLUCOSE (06/19/2024 12:23 AM EST) Glucometer, POC 82 65 - 199 mg/dL 06/19/2024 12:23 AM EST [facility] Comment:Supplemental ranges: <140 mg/dL before meals <180 mg/dL all other times of the day. Blood CAPILLARY BLOOD / Unknown 06/19/2024 12:23 AM EST 06/19/2024 12:23 AM EST Bobby Loja MD POINT OF CARE TEST O NIKA Performing Organization Address [facility] Co de Phone Number [facility] [place] [address] * POC, GLUCOSE (06/18/2024 11:08 PM EST) Glucometer, POC 73 65 - 199 mg/dL 06/18/2024 11:08 PM EST [facility] Comment:Supplemental ranges: <140 mg/dL before meals <180 mg/dL all other times of the day. Blood CAPILLARY BLOOD / Unknown 06/18/2024 11:08 PM EST 06/18/2024 11:08 PM EST Bobby Loja MD POINT OF CARE TEST Abimael MAHER Performing Organization Address [facility] de Phone Number [facility] [place] [address] * POC, GLUCOSE (06/18/2024 7:32 PM EST) Glucometer, POC 167 65 - 199 mg/dL 06/18/2024 7:32 PM EST [facility] Comment:Supplemental ranges: <140 mg/dL before meals <180 mg/dL all other times of the day. Blood CAPILLARY BLOOD / Unknown 06/18/2024 7:32 PM EST 06/18/2024 7:32 PM EST Bobby Loja MD POINT OF CARE TEST O NIKA Performing Organization Address [facility] Co de Phone Number [facility] [place] [address] * POC, GLUCOSE (06/18/2024 6:08 PM EST) [...] CARE TEST O NIKA Performing Organization Address [facility] Co de Phone Number [facility] [place] [address] * POC, GLUCOSE (06/18/2024 4:17 PM EST) [...] CARE TEST O NKIA Performing Organization Address [facility] Co de Phone Number [facility] [place] [address] * POC, GLUCOSE (06/18/2024 12:09 PM EST) [...] CARE TEST O NIKA Performing Organization Address [place]/[facility] Co de Phone Number [facility] [place] [address] * POC, GLUCOSE (06/18/2024 7:49 AM EST) [...] O NIKA [facility] [place] [address] * (ABNORMAL) Basic Metabolic Panel (06/18/2024 4:19 AM EST) Glucose 103 65 - 199 mg/dL 06/18/2024 5:03 AM [facility] Comment:Glucose Concentratio n >=200 mg/dL plus symptoms is consistent with Diabetes Mellitus. Blood Urea Nitrogen 43(H) 10 - 20 mg/dL 06/18/2024 5:03 AM [facility] Creatinine 1.45 0.80 - 1.50 mg/dL 06/18/2024 5:03 AM [facility] Sodium 131(L) 135 - 145 mMol/L 06/18/2024 5:03 AM [facility] Potassium 4.2 3.5 - 5.0 mMol/L 06/18/2024 5:03 AM [facility] Chloride 97(L) 98 - 107 mMol/L 06/18/2024 5:03 AM [facility] Carbon Dioxide 25 22 - 31 mMol/L 06/18/2024 5:03 AM [facility] Anion Gap 9 5 - 15 mMol/L 06/18/2024 5:03 AM [facility] Calcium 8.5 8.5 - 10.5 mg/dL 06/18/2024 5:03 AM [facility] Est Glomerular Filtration Rate - Male 53 mL/min/1. 73 m?? 06/18/2024 5:03 AM [facility] Comment: [...] APRN CHEMISTRY ORDERABL ES Performing Organization Address [facility] Co de Phone Number [facility] [place] [address] * POC, GLUCOSE (06/18/2024 3:50 AM EST) [...] O RDERABLES [facility] [place] [address] * POC, GLUCOSE (06/17/2024 11:10 PM EST) Glucometer, POC 92 65 - 199 mg/dL 06/17/2024 11:10 PM EST [facility] Comment:Supplemental ranges: <140 mg/dL before meals <180 mg/dL all other times of the day. Blood CAPILLARY BLOOD / Unknown 06/17/2024 11:10 PM EST 06/17/2024 11:10 PM EST Bobby Loja MD POINT OF CARE TEST O NIKA Performing Organization Address [facility] Co de Phone Number [facility] [place] [address] * POC, GLUCOSE (06/17/2024 7:54 PM EST) [...] O NIKA Performing Organization Address [facility] de Phone Number [facility] [place] [address] * POC, GLUCOSE (06/17/2024 4:07 PM EST) Glucometer, POC 141 65 - 199 mg/dL 06/17/2024 4:12 PM EST [facility] Comment:Supplemental ranges: <140 mg/dL before meals <180 mg/dL all other times of the day. Blood CAPILLARY BLOOD / Unknown 06/17/2024 4:07 PM EST 06/17/2024 4:12 PM EST Bobby Loja MD POINT OF CARE TEST O NIKA Performing Organization Address [facility] Co de Phone Number [facility] [place] [place] [address] * XR Chest PA & Lateral (Generic) (06/17/2024 1:46 PM EST) WORKSTATION ID [id number] RAD Anatomical Region Laterality Modality Chest N/A [...] have questions please contact the health manager critical care unit that requested your imaging first. ? Electronically signed by: Josselyn Spence MD, [facility] ([phone]), at 06/17/2024 4:49 PM Narrative 06/17/2024 4:49 [...] significant pleural fluid. Pneumothorax. Procedure Note Josselyn Spnece MD - 06/17/2024 EXAMINATION: XR CHEST PA [...] who have questions please contactthe health manager critical care unit that requested your imaging first. Electronically signed by: Josselyn Spence MD, [facility]([phone]), at 06/17/2024 4:49 PM [facility]il[facility] GLASS BLOWER IMG DX ORDERABLES * (ABNORMAL) POC, GLUCOSE [...] CARE TEST O NIKA Performing Organization Address City/[facility]/ZIP Co de Phone Number [facility] [place] [address] * POC, GLUCOSE (06/17/2024 7:49 AM EST) Glucometer, POC 141 65 - 199 mg/dL 06/17/2024 7:55 AM EST [facility] Comment:Supplemental ranges: <140 mg/dL before meals <180 mg/dL all other times of the day. Blood CAPILLARY BLOOD / Unknown 06/17/2024 7:49 AM EST 06/17/2024 7:55 AM EST Bobby Loja MD POINT OF CARE TEST O NIAK [facility] [place] [address] * POC, GLUCOSE (06/17/2024 4:16 AM EST) [...] O RDERABLES [facility] [place] [address] * Lactate, Whole Blood (06/17/2024 2:39 AM EST) [facility] Lactate, Whole Blood 1.3 0.5 - 2.2 mmol/L 06/17/2024 2:46 AM EST [facility] Blood VENOUS BLOOD SPECIMEN / Unknown Venipuncture / Unknown 06/17/2024 2:39 AM EST 06/17/2024 2:43 AM EST Bobby Loja MD CHEMISTRY ORDERABLES Performing Organization Address City/[facility]/ZIP Co de Phone Number [facility] [place] [address] * (ABNORMAL) Hemogram (06/17/2024 2:39 AM EST) [facility] White Blood Cell 13.53(H) 4.00 - 9.50 x10(3)/mc L 06/17/2024 2:53 AM EST [facility] Red Blood Cell 3.55(L) 4.58 - 5.54 x10(6)/mc L 06/17/2024 2:53 AM EST [facility] Hemoglobin 10.8(L) 13.7 - 16.5 g/dL 06/17/2024 2:53 AM [facility] Hematocrit 33.0(L) 40.5 - 48.5 % 06/17/2024 2:53 AM EST [facility] Mean Cell Volume 93.0 82.9 - 93.1 fL 06/17/2024 2:53 AM [facility] Mean Cell Hemoglobin 30.4 27.5 - 32.1 pg 06/17/2024 2:53 AM [facility] Mean Cell Hemoglobin Concentration 32.7 32.0 - 35.7 g/dL 06/17/2024 2:53 AM [facility] Platelet 101(L) 145 - 357 x10(3)/mc L 06/17/2024 2:53 AM [facility] Mean Platelet Volume 10.4 7.6 - 12.9 fL 06/17/2024 2:53 AM [facility] RDW Standard Deviation 48.4(H) 36.0 - 45.0 fL 06/17/2024 2:53 AM [facility] RDW coefficient of variation 14.1(H) 11.4 - 13.8 % 06/17/2024 2:53 AM [facility] NRBC% auto 0.0 % 06/17/2024 2:53 AM [facility] NRBC Absolute <0.01 <0.01 x10(3)/mc L 06/17/2024 2:53 AM [facility] Blood VENOUS BLOOD SPECIMEN / Unknown Venipuncture / Unknown 06/17/2024 2:39 AM EST 06/17/2024 2:43 AM EST Bobby Loja MD HEMATOLOGY ORDERABLE S [facility] [place] [address] * (ABNORMAL) Basic Metabolic Panel (06/17/2024 2:39 AM EST) Glucose 149 65 - 199 mg/dL 06/17/2024 3:14 AM EST [facility] Comment:Glucose Concentratio n >=200 mg/dL plus symptoms is consistent with Diabetes Mellitus. Blood Urea Nitrogen 42(H) 10 - 20 mg/dL 06/17/2024 3:14 AM [facility] Creatinine 1.52(H) 0.80 - 1.50 mg/dL 06/17/2024 3:14 AM [facility] Sodium 133(L) 135 - 145 mMol/L 06/17/2024 3:14 AM [facility] Potassium 4.5 3.5 - 5.0 mMol/L 06/17/2024 3:14 AM [facility] Chloride 101 98 - 107 mMol/L 06/17/2024 3:14 AM [facility] Carbon Dioxide 23 22 - 31 mMol/L 06/17/2024 3:14 AM [facility] Anion Gap 9 5 - 15 mMol/L 06/17/2024 3:14 AM [facility] Calcium 8.8 8.5 - 10.5 mg/dL 06/17/2024 3:14 AM [facility] Est Glomerular Filtration Rate - Male 50 mL/min/1. 73 m?? 06/17/2024 3:14 AM [facility] Comment: [...] CHEMISTRY ORDERABLES [facility] [place] [address] * (ABNORMAL) POC, GLUCOSE (06/17/2024 12:13 AM EST) Glucometer, POC 211(H) 65 - 199 mg/dL 06/17/2024 12:13 AM EST [facility] Comment:Supplemental ranges: <140 mg/dL before meals <180 mg/dL all other times of the day. Blood CAPILLARY BLOOD / Unknown 06/17/2024 12:13 AM EST 06/17/2024 12:14 AM EST Bobby Loja MD POINT OF CARE TEST O NIKA Performing Organization Address [facility] Co de Phone Number [facility] [place] [address] * (ABNORMAL) POC, GLUCOSE (06/16/2024 7:22 PM EST) Glucometer, POC 229(H) 65 - 199 mg/dL 06/16/2024 7:22 PM EST [facility] Comment:Supplemental ranges: <140 mg/dL before meals <180 mg/dL all other times of the day. Blood CAPILLARY BLOOD / Unknown 06/16/2024 7:22 PM EST 06/16/2024 7:22 PM EST Bobby Loja MD POINT OF CARE TEST Abimael MAHER Performing Organization Address City/[facility] Co de Phone Number [facility] [place] [address] * (ABNORMAL) POC, GLUCOSE (06/16/2024 6:14 PM EST) Glucometer, POC 220(H) 65 - 199 mg/dL 06/16/2024 6:14 PM EST [facility] Comment:Supplemental ranges: <140 mg/dL before meals <180 mg/dL all other times of the day. Blood CAPILLARY BLOOD / Unknown 06/16/2024 6:14 PM EST 06/16/2024 6:14 PM EST Bobby Loja MD POINT OF CARE TEST O RDBECKIE Performing Organization Address [facility] Co de Phone Number [facility] [place] [address] * Lactate, Whole Blood (06/16/2024 6:14 PM EST) Lactate, Whole Blood 1.8 0.5 - 2.2 mmol/L 06/16/2024 6:27 PM EST [facility] Blood VENOUS BLOOD SPECIMEN / Unknown Venipuncture / Unknown 06/16/2024 6:14 PM EST 06/16/2024 6:25 PM EST Bobby Loja MD CHEMISTRY ORDERABLES Performing Organization Address [facility] Co de Phone Number [facility] [place] [address] * (ABNORMAL) POC, GLUCOSE (06/16/2024 4:14 PM EST) Glucometer, POC 240(H) 65 - 199 mg/dL 06/16/2024 4:14 PM EST [facility] Comment:Supplemental ranges: <140 mg/dL before meals <180 mg/dL all other times of the day. Blood CAPILLARY BLOOD / Unknown 06/16/2024 4:14 PM EST 06/16/2024 4:14 PM EST Bobby Loja MD POINT OF CARE TEST O NIKA Performing Organization Address [facility] Co de Phone Number [facility] [place] [address] * POC, GLUCOSE (06/16/2024 11:49 AM EST) [...] O RDERABLES [facility] [place] [address] * (ABNORMAL) Hemogram (06/16/2024 11:44 AM EST) White Blood Cell 17.91(H) 4.00 - 9.50 x10(3)/mc L 06/16/2024 12:25 PM [facility] Red Blood Cell 3.47(L) 4.58 - 5.54 x10(6)/mc L 06/16/2024 12:25 PM [facility] Hemoglobin 10.5(L) 13.7 - 16.5 g/dL 06/16/2024 12:25 PM [facility] Hematocrit 33.1(L) 40.5 - 48.5 % 06/16/2024 12:25 PM [facility] Mean Cell Volume 95.4(H) 82.9 - 93.1 fL 06/16/2024 12:25 PM [facility] Mean Cell Hemoglobin 30.3 27.5 - 32.1 pg 06/16/2024 12:25 PM [facility] Mean Cell Hemoglobin Concentration 31.7(L) 32.0 - 35.7 g/dL 06/16/2024 12:25 PM [facility] Platelet 101(L) 145 - 357 x10(3)/mc L 06/16/2024 12:25 PM [facility] Mean Platelet Volume 10.6 7.6 - 12.9 fL 06/16/2024 12:25 PM [facility] RDW Standard Deviation 49.5(H) 36.0 - 45.0 fL 06/16/2024 12:25 PM [facility] RDW coefficient of variation 14.2(H) 11.4 - 13.8 % 06/16/2024 12:25 PM [facility] NRBC% auto 0.0 % 06/16/2024 12:25 PM EST [facility] NRBC Absolute <0.01 <0.01 x10(3)/mc L 06/16/2024 12:25 PM EST [facility] Blood VENOUS BLOOD SPECIMEN / Unknown Venipuncture / Unknown 06/16/2024 11:44 AM EST 06/16/2024 12:03 PM EST Bobby Loja MD HEMATOLOGY ORDERABLE S [facility] [place] [address] * Lactate, Whole Blood (06/16/2024 9:02 AM EST) Lactate, Whole Blood 1.8 0.5 - 2.2 mmol/L 06/16/2024 9:19 AM EST [facility] Blood VENOUS BLOOD SPECIMEN / Unknown Venipuncture / Unknown 06/16/2024 9:02 AM EST 06/16/2024 9:17 AM EST Narrative Authorizing Provider Result Saranya Loja MD CHEMISTRY ORDERABLES Performing Organization Address [facility]/ZIP Co de Phone Number [facility] [place] [address] * POC, GLUCOSE (06/16/2024 7:44 AM EST) [...] CARE TEST O RDERABLES Performing Organization Address City/[facility]/ZIP Co de Phone Number [facility] [place] [address] * POC, GLUCOSE (06/16/2024 4:01 AM EST) [...] O RDERABLES [facility] [place] [address] * (ABNORMAL) Basic Metabolic Panel (06/16/2024 2:23 AM EST) Glucose 177 65 - 199 mg/dL 06/16/2024 3:13 AM [facility] Comment:Glucose Concentratio n >=200 mg/dL plus symptoms is consistent with Diabetes Mellitus. Blood Urea Nitrogen 37(H) 10 - 20 mg/dL 06/16/2024 3:13 AM [facility] Creatinine 2.10(H) 0.80 - 1.50 mg/dL 06/16/2024 3:13 AM [facility] Sodium 132(L) 135 - 145 mMol/L 06/16/2024 3:13 AM [facility] Potassium 4.5 3.5 - 5.0 mMol/L 06/16/2024 3:13 AM [facility] Chloride 99 98 - 107 mMol/L 06/16/2024 3:13 AM [facility] Carbon Dioxide 22 22 - 31 mMol/L 06/16/2024 3:13 AM [facility] Anion Gap 11 5 - 15 mMol/L 06/16/2024 3:13 AM [facility] Calcium 9.0 8.5 - 10.5 mg/dL 06/16/2024 3:13 AM [facility] Est [...] Loja MD CHEMISTRY ORDERABLES Performing Organization Address [facility]/ZIP Co de Phone Number [facility] [place] [address] * POC, GLUCOSE (06/16/2024 2:21 AM EST) Glucometer, POC 176 65 - 199 mg/dL 06/16/2024 2:31 AM EST [facility] Comment:Supplemental ranges: <140 mg/dL before meals <180 mg/dL all other times of the day. Blood CAPILLARY BLOOD / Unknown 06/16/2024 2:21 AM EST 06/16/2024 2:31 AM EST Bobby Loja MD POINT OF CARE TEST O RDERABLES Performing Organization Address City/[facility]/ZIP Co de Phone Number [facility] [place] [address] * (ABNORMAL) POC, GLUCOSE (06/16/2024 12:09 AM [...] CARE TEST O NIKA Performing Organization Address City/[facility]/ZIP Co de Phone Number [facility] [place] [address] * (ABNORMAL) POC, GLUCOSE (06/15/2024 10:07 PM EST) Glucometer, POC 320(H) 65 - 199 mg/dL 06/15/2024 10:07 PM EST [facility] Comment:Supplemental ranges: <140 mg/dL before meals <180 mg/dL all other times of the day. Blood CAPILLARY BLOOD / Unknown 06/15/2024 10:07 PM EST 06/15/2024 10:07 PM EST Bobby Loja MD POINT OF CARE TEST O NIKA Performing Organization Address [facility]/ZIP Co de Phone Number [facility] [place] [address] * (ABNORMAL) POC, GLUCOSE (06/15/2024 7:56 PM [...] O NIKA [facility] [place] [address] * (ABNORMAL) POC, GLUCOSE (06/15/2024 7:52 PM [...] O NIKA [facility] [place] [address] * POC, GLUCOSE (06/15/2024 4:21 PM EST) Glucometer, POC 192 65 - 199 mg/dL 06/15/2024 4:21 PM EST [facility] Comment:Supplemental ranges: <140 mg/dL before meals <180 mg/dL all other times of the day. Blood CAPILLARY BLOOD / Unknown 06/15/2024 4:21 PM EST 06/15/2024 4:21 PM EST Bobby Loja MD POINT OF CARE TEST O NIKA Performing Organization Address [facility]/ZIP Co de Phone Number [facility] [place] [address] * POC, GLUCOSE (06/15/2024 3:27 PM EST) [...] O NIKA [facility] [place] [address] * POC, GLUCOSE (06/15/2024 2:23 PM EST) Glucometer, POC 160 65 - 199 mg/dL 06/15/2024 2:23 PM EST [facility] Comment:Supplemental ranges: <140 mg/dL before meals <180 mg/dL all other times of the day. Blood CAPILLARY BLOOD / Unknown 06/15/2024 2:23 PM EST 06/15/2024 2:23 PM EST Bobby Loja MD POINT OF CARE TEST O NIKA Performing Organization Address City/[facility]/ZIP Co de Phone Number [facility] [place] [address] * POC, GLUCOSE (06/15/2024 1:26 PM EST) Glucometer, POC 167 65 - 199 mg/dL 06/15/2024 1:26 PM EST [facility] Comment:Supplemental ranges: <140 mg/dL before meals <180 mg/dL all other times of the day. Blood CAPILLARY BLOOD / Unknown 06/15/2024 1:26 PM EST 06/15/2024 1:26 PM EST Bobby Loja MD POINT OF CARE TEST O NIKA Performing Organization Address City/[facility]/ZIP Co de Phone Number [facility] [place] [address] * (ABNORMAL) POC, GLUCOSE (06/15/2024 12:55 PM EST) Glucometer, POC 210(H) 65 - 199 mg/dL 06/15/2024 12:55 PM EST [facility] Comment:Supplemental ranges: <140 mg/dL before meals <180 mg/dL all other times of the day. Blood CAPILLARY BLOOD / Unknown 06/15/2024 12:55 PM EST 06/15/2024 12:55 PM EST Bobby Loja MD POINT OF CARE TEST O NIKA Performing Organization Address City/[facility]/ZIP Co de Phone Number [facility] [place] [address] * (ABNORMAL) POC, GLUCOSE (06/15/2024 11:29 AM EST) Glucometer, POC 220(H) 65 - 199 mg/dL 06/15/2024 11:29 AM EST [facility] Comment:Supplemental ranges: <140 mg/dL before meals <180 mg/dL all other times of the day. Blood CAPILLARY BLOOD / Unknown 06/15/2024 11:29 AM EST 06/15/2024 11:29 AM EST Bobby Loja MD POINT OF CARE TEST O NIKA Performing Organization Address [facility]/ZIP Co de Phone Number [facility] [place] [address] * (ABNORMAL) Basic Metabolic Panel (06/15/2024 11:23 AM EST) Glucose 215(H) 65 - 199 mg/dL 06/15/2024 12:08 PM EST [facility] Comment:Glucose Concentratio n >=200 mg/dL plus symptoms is consistent with Diabetes Mellitus. Blood Urea Nitrogen 24(H) 10 - 20 mg/dL 06/15/2024 12:08 PM [facility] Creatinine 1.54(H) 0.80 - 1.50 mg/dL 06/15/2024 12:08 PM [facility] Sodium 135 135 - 145 mMol/L 06/15/2024 12:08 PM [facility] Potassium 4.5 3.5 - 5.0 mMol/L 06/15/2024 12:08 PM [facility] Chloride 105 98 - 107 mMol/L 06/15/2024 12:08 PM [facility] Carbon Dioxide 19(L) 22 - 31 mMol/L 06/15/2024 12:08 PM [facility] Anion Gap 11 5 - 15 [...] Loja MD CHEMISTRY ORDERABLES Performing Organization Address City/[facility]/ZIP Co de Phone Number [facility] [place] [address] * POC, GLUCOSE (06/15/2024 10:29 AM EST) [facility] Signature Glucometer, POC 189 65 - 199 mg/dL 06/15/2024 10:29 AM EST [facility] Comment:Supplemental ranges: <140 mg/dL before meals <180 mg/dL all other times of the day. Blood CAPILLARY BLOOD / Unknown 06/15/2024 10:29 AM EST 06/15/2024 10:29 AM EST Bobby Loja MD POINT OF CARE TEST O RDERABLES [facility] [place] [address] * POC, GLUCOSE (06/15/2024 9:45 AM EST) Glucometer, POC 178 65 - 199 mg/dL 06/15/2024 9:45 AM EST [facility] Comment:Supplemental ranges: <140 mg/dL before meals <180 mg/dL all other times of the day. Blood CAPILLARY BLOOD / Unknown 06/15/2024 9:45 AM EST 06/15/2024 9:45 AM EST Bobby Loja MD POINT OF CARE TEST O NIKA Performing Organization Address City/[facility]/ZIP Co de Phone Number [facility] [place] [address] * (ABNORMAL) Cooximetry, POC (06/15/2024 9:31 AM EST) pO2, Coox 38 mmHg 06/15/2024 9:34 AM [facility] Hemoglobin, Coox 12.9(L) 13.7 - 16.5 g/dL 06/15/2024 9:34 AM [facility] Oxyhemoglobin, Coox 72.1 % 06/15/2024 9:34 AM [facility] Carboxyhemoglo bin, Coox 0.9 % 06/15/2024 9:34 AM [facility] Comment: Nonsmokers: 0.5-1.5% COHB ?? Smokers: Variable ??but usually less than 10% ?? Toxic: 20-30% COHB ?? Lethal: Greater than 60% COHB Methemoglobin, Coox 0.3 <=1.5 % 06/15/2024 9:34 AM [facility] Blood (Mixed Venous) 06/15/2024 9:31 AM EST 06/15/2024 9:34 AM EST Bobby Loja MD POINT OF CARE TEST O NIKA [facility] [place] [address] * Cooximetry, POC (06/15/2024 9:22 AM EST) pO2, Coox 30 mmHg 06/15/2024 9:25 AM [facility] Hemoglobin, Coox 06/15/2024 9:25 AM [facility] Comment:QUES Oxyhemoglobin, Coox 06/15/2024 9:25 AM [facility] Comment:QUES Carboxyhemoglo bin, Coox 06/15/2024 9:25 AM [facility] Comment:QUES Methemoglobin, Coox 06/15/2024 9:25 AM [facility] Comment:QUES Blood (Mixed Venous) 06/15/2024 9:22 AM EST 06/15/2024 9:25 AM EST Bobby Loja MD POINT OF CARE TEST O RDERABLES [facility] [place] [address] * (ABNORMAL) Blood Gas, Arterial POC (06/15/2024 9:19 AM EST) pH, Arterial 7.31(L) 7.35 - 7.45 06/15/2024 9:21 AM [facility] PCO2, Arterial 36 35 - 45 mmHg 06/15/2024 9:21 AM [facility] PO2, Arterial 94 85 - 104 mmHg 06/15/2024 9:21 AM [facility] Bicarbonate, Arterial 18.0(L) 20.0 - 26.0 mmol/L 06/15/2024 9:21 AM [facility] Base Excess, Arterial -8.2(L) -3.0 - 3.0 mmol/L 06/15/2024 9:21 AM [facility] Hemoglobin, Arterial 12.7(L) 13.7 - 16.5 g/dL 06/15/2024 9:21 AM [facility] Oxyhemoglobin, Arterial 96.0 94.0 - 97.0 % 06/15/2024 9:21 AM [facility] Carboxyhemoglobin , Arterial 0.5 % 06/15/2024 9:21 AM [facility] Comment: Nonsmokers: 0.5-1.5% COHB ?? Smokers: Variable ??but usually less than 10% ?? Toxic: 20-30% COHB ?? Lethal: Greater than 60% COHB Methemoglobin, Arterial 0.3 <=1.5 % 06/15/2024 9:21 AM [facility] Sodium, Arterial 136 135 - 145 mmol/L 06/15/2024 9:21 AM [facility] Potassium, Arterial 4.0 3.5 - 5.0 mmol/L 06/15/2024 9:21 AM [facility] Chloride, Arterial 106 98 - 107 mmol/L 06/15/2024 9:21 AM [facility] Lactate, Arterial 1.7 0.5 - 2.2 mmol/L 06/15/2024 9:21 AM [facility] Flow Rate 2.0 L/min 06/15/2024 9:21 AM [facility] IONIZED CALCIUM, ARTERIAL 1.14(L) 1.15 - 1.33 mmol/L 06/15/2024 9:21 AM [facility] Glucose, Arterial 193 65 - 199 mg/dL 06/15/2024 9:21 AM [facility] Comment:Glucose Concentratio n >=200 mg/dL plus symptoms is consistent with Diabetes Mellitus. Blood ARTERIAL BLOOD / Unknown 06/15/2024 9:19 AM EST 06/15/2024 9:20 AM EST Bobby Loja MD POINT OF CARE TEST O RDERABLES [facility] [place] [address] * (ABNORMAL) POC, GLUCOSE (06/15/2024 8:37 AM EST) Glucometer, POC 204(H) 65 - 199 mg/dL 06/15/2024 8:37 AM EST [facility] Comment:Supplemental ranges: <140 mg/dL before meals <180 mg/dL all other times of the day. Blood CAPILLARY BLOOD / Unknown 06/15/2024 8:37 AM EST 06/15/2024 8:37 AM EST Bobby Loja MD POINT OF CARE TEST O NIKA Performing Organization Address [facility] Co de Phone Number [facility] [place] [address] * POC, GLUCOSE (06/15/2024 7:37 AM EST) Glucometer, POC 199 65 - 199 mg/dL 06/15/2024 7:37 AM EST [facility] Comment:Supplemental ranges: <140 mg/dL before meals <180 mg/dL all other times of the day. Blood CAPILLARY BLOOD / Unknown 06/15/2024 7:37 AM EST 06/15/2024 7:38 AM EST Bobby Loja MD POINT OF CARE TEST Abimael MAHER Performing Organization Address [facility] Co de Phone Number [facility] [place] [place] [address] * (ABNORMAL) POC, GLUCOSE (06/15/2024 7:01 AM EST) Glucometer, POC 203(H) 65 - 199 mg/dL 06/15/2024 7:01 AM EST [facility] Comment:Supplemental ranges: <140 mg/dL before meals <180 mg/dL all other times of the day. Blood CAPILLARY BLOOD / Unknown 06/15/2024 7:01 AM EST 06/15/2024 7:01 AM EST Bobby oLja MD POINT OF CARE TEST Abimael MAHER [facility] [place] [address] * XR Chest One View (06/15/2024 6:31 AM EST) WORKSTATION ID [id number] RAD Anatomical Region Laterality Modality Chest N/A [...] have questions please contact the health manager critical care unit that requested your imaging first. ? Electronically signed by: Stuart Aponte MD, [facility] ??([phone]), at 06/15/2024 10:38 AM Narrative 06/15/2024 10:38 [...] who have questions please contactthe health manager critical care unit that requested your imaging first. Electronically signed by: Stuart Aponte MD, [facility]([phone]), at 06/15/2024 10:38 AM Bobby Loja MD [...] CARE TEST O NIKA Performing Organization Address City/[facility] Co de Phone Number [facility] [place] [address] * POC, GLUCOSE (06/15/2024 5:06 AM EST) [...] CARE TEST O RDERABLES Performing Organization Address City/[facility]/ZIP Co de Phone Number [facility] [place] [address] * POC, GLUCOSE (06/15/2024 4:05 AM EST) Glucometer, POC 160 65 - 199 mg/dL 06/15/2024 4:06 AM EST [facility] Comment:Supplemental ranges: <140 mg/dL before meals <180 mg/dL all other times of the day. Blood CAPILLARY BLOOD / Unknown 06/15/2024 4:05 AM EST 06/15/2024 4:06 AM EST Bobby Loja MD POINT OF CARE TEST O NIKA Performing Organization Address [facility] Co de Phone Number [facility] [place] [address] * POC, GLUCOSE (06/15/2024 3:07 AM EST) Glucometer, POC 151 65 - 199 mg/dL 06/15/2024 3:07 AM EST [facility] Comment:Supplemental ranges: <140 mg/dL before meals <180 mg/dL all other times of the day. Blood CAPILLARY BLOOD / Unknown 06/15/2024 3:07 AM EST 06/15/2024 3:07 AM EST Bobby Loja MD POINT OF CARE TEST O RDERAPIETER Performing Organization Address [facility]/ZIP Co de Phone Number [facility] [place] [address] * (ABNORMAL) Basic Metabolic Panel (06/15/2024 1:48 AM EST) Glucose 140 65 - 199 mg/dL 06/15/2024 2:38 AM EST [facility] Comment:Glucose Concentratio n >=200 mg/dL plus symptoms is consistent with Diabetes Mellitus. Blood Urea Nitrogen 21(H) 10 - 20 mg/dL 06/15/2024 2:38 AM EST [facility] Creatinine 1.27 0.80 - 1.50 mg/dL 06/15/2024 2:38 AM EST [facility] Sodium 140 135 - 145 mMol/L 06/15/2024 2:38 AM [facility] Potassium 4.4 3.5 - 5.0 mMol/L 06/15/2024 2:38 AM [facility] Chloride 108(H) 98 - 107 mMol/L 06/15/2024 2:38 AM [facility] Carbon Dioxide 23 22 - 31 mMol/L 06/15/2024 2:38 AM [facility] Anion Gap 9 5 - 15 mMol/L 06/15/2024 2:38 AM [facility] Calcium 8.3(L) 8.5 - 10.5 mg/dL 06/15/2024 2:38 AM [facility] Est Glomerular Filtration Rate - Male 62 mL/min/1. 73 m?? 06/15/2024 2:38 AM [facility] Comment: [...] CHEMISTRY ORDERABLES [facility] [place] [address] * (ABNORMAL) CBC (with Diff) (06/15/2024 1:48 AM EST) White Blood Cell 11.71(H) 4.00 - 9.50 x10(3)/mc L 06/15/2024 2:13 AM [facility] Red Blood Cell 4.14(L) 4.58 - 5.54 x10(6)/mc L 06/15/2024 2:13 AM [facility] Hemoglobin 12.5(L) 13.7 - 16.5 g/dL 06/15/2024 2:13 AM [facility] Hematocrit 38.4(L) 40.5 - 48.5 % 06/15/2024 2:13 AM [facility] Mean Cell Volume 92.8 82.9 - 93.1 fL 06/15/2024 2:13 AM [facility] Mean Cell Hemoglobin 30.2 27.5 - 32.1 pg 06/15/2024 2:13 AM [facility] Mean Cell Hemoglobin Concentration 32.6 32.0 - 35.7 g/dL 06/15/2024 2:13 AM [facility] Platelet 101(L) 145 - 357 x10(3)/mc L 06/15/2024 2:13 AM [facility] Mean Platelet Volume 10.0 7.6 - 12.9 fL 06/15/2024 2:13 AM [facility] RDW Standard Deviation 48.8(H) 36.0 - 45.0 fL 06/15/2024 2:13 AM [facility] RDW coefficient of variation 14.2(H) 11.4 - 13.8 % 06/15/2024 2:13 AM [facility] [facility] NRBC% auto 0.0 % 06/15/2024 2:13 AM [facility] NRBC Absolute <0.01 <0.01 x10(3)/mc L 06/15/2024 2:13 AM [facility] Neutrophil % 79.7 % 06/15/2024 2:13 AM [facility] Neutrophil Absolute (ANC) - Automated 9.34(H) 1.70 - 6.10 x10(3)/mc L 06/15/2024 2:13 AM EST [facility] Lymph % 8.0 % 06/15/2024 2:13 AM EST [facility] Lymph Absolute 0.94 0.90 - [...] % 0.5 % 2:13 AM EST [facility] Immature Gran Absolute 0.06(H) 0.00 - 0.04 x10(3)/mc L 06/15/2024 2:13 AM EST [facility] Blood VENOUS BLOOD SPECIMEN / Unknown Venipuncture / Unknown 06/15/2024 1:48 AM EST 06/15/2024 1:52 AM EST Bobby Loja MD HEMATOLOGY ORDERABLE S [facility] [place] [address] * (ABNORMAL) Troponin - Single (06/15/2024 1:48 [...] troponin value can be found in the [facility] Laboratory Test Catalog Troponin - [email or web address] Reference: Fourth [place] Definition of Myocardial Infarction. Journal of the [place] [employer] 2018;72:6853-2791 Blood VENOUS BLOOD SPECIMEN / Unknown Venipuncture / Unknown 06/15/2024 1:48 AM EST 06/15/2024 1:52 AM EST Bobby Loja MD CHEMISTRY ORDERABLES [facility] [place] [address] * (ABNORMAL) Blood Gas, Arterial POC (06/15/2024 1:46 AM EST) Pathologist [facility] pH, Arterial 7.33(L) 7.35 - 7.45 06/15/2024 1:47 AM EST [facility] PCO2, Arterial 40 35 - 45 mmHg 06/15/2024 1:47 AM EST [facility] PO2, Arterial 131(H) 85 - 104 mmHg 06/15/2024 1:47 AM [facility] Bicarbonate, Arterial 20.7 20.0 - 26.0 mmol/L 06/15/2024 1:47 AM [facility] Base Excess, Arterial -5.2(L) -3.0 - 3.0 mmol/L 06/15/2024 1:47 AM [facility] Hemoglobin, Arterial 13.4(L) 13.7 - 16.5 g/dL 06/15/2024 1:47 AM [facility] Oxyhemoglobin, Arterial 97.9(H) 94.0 - 97.0 % 06/15/2024 1:47 AM [facility] Carboxyhemoglobin , Arterial 0.5 % 06/15/2024 1:47 AM [facility] Comment: Nonsmokers: 0.5-1.5% COHB ?? Smokers: Variable ??but usually less than 10% ?? Toxic: 20-30% COHB ?? Lethal: Greater than 60% COHB Methemoglobin, Arterial 0.3 <=1.5 % 06/15/2024 1:47 AM [facility] Sodium, Arterial 139 135 - 145 mmol/L 06/15/2024 1:47 AM [facility] Potassium, Arterial 4.2 3.5 - 5.0 mmol/L 06/15/2024 1:47 AM [facility] Chloride, Arterial 107 98 - 107 mmol/L 06/15/2024 1:47 AM [facility] Lactate, Arterial 1.8 0.5 - 2.2 mmol/L 06/15/2024 1:47 AM [facility] Fraction of Inspired Oxygen 40 % 06/15/2024 1:47 AM [facility] PF Ratio 328 Ratio 06/15/2024 1:47 AM [facility] Comment:PF ratio calculated using the non-temperature corrected pO2 result. IONIZED CALCIUM, ARTERIAL 1.17 1.15 - 1.33 mmol/L 06/15/2024 1:47 AM [facility] Glucose, Arterial 127 65 - 199 mg/dL 06/15/2024 1:47 AM EST [facility] Comment:Glucose Concentratio n >=200 mg/dL plus symptoms is consistent with Diabetes Mellitus. Blood ARTERIAL BLOOD / Unknown 06/15/2024 1:46 AM EST 06/15/2024 1:47 AM EST Bobby Loja MD POINT OF CARE TEST O NIKA Performing Organization Address City/[facility]/ZIP Co de Phone Number [facility] [place] [address] * POC, GLUCOSE (06/15/2024 1:05 AM EST) Glucometer, POC 116 65 - 199 mg/dL 06/15/2024 1:05 AM EST [facility] Comment:Supplemental ranges: <140 mg/dL before meals <180 mg/dL all other times of the day. Blood CAPILLARY BLOOD / Unknown 06/15/2024 1:05 AM EST 06/15/2024 1:05 AM EST Bobby Loja MD POINT OF CARE TEST O NIKA Performing Organization Address [facility] Co de Phone Number [facility] [place] [address] * POC, GLUCOSE (06/15/2024 12:16 AM EST) Glucometer, POC 135 65 - 199 mg/dL 06/15/2024 12:16 AM EST [facility] Comment:Supplemental ranges: <140 mg/dL before meals <180 mg/dL all other times of the day. Blood CAPILLARY BLOOD / Unknown 06/15/2024 12:16 AM EST 06/15/2024 12:16 AM EST Bobby Loja MD POINT OF CARE TEST O NIKA Performing Organization Address City/[facility]/ZIP Co de Phone Number [facility] [place] [address] * Potassium (06/14/2024 11:28 PM EST) Potassium 4.1 3.5 - 5.0 mMol/L 06/14/2024 11:54 PM EST [facility] Blood VENOUS BLOOD SPECIMEN / Unknown Venipuncture / Unknown 06/14/2024 11:28 PM EST 06/14/2024 11:34 PM EST Bobby Loja MD CHEMISTRY ORDERABLES [facility] [place] [address] * POC, GLUCOSE (06/14/2024 10:58 PM EST) Glucometer, POC 126 65 - 199 mg/dL 06/14/2024 10:59 PM EST [facility] Comment:Supplemental ranges: <140 mg/dL before meals <180 mg/dL all other times of the day. Blood CAPILLARY BLOOD / Unknown 06/14/2024 10:58 PM EST 06/14/2024 10:59 PM EST Bobby Loja MD POINT OF CARE TEST O RDERABLES Performing Organization Address City/[facility]/ZIP Co de Phone Number [facility] [place] [address] * POC, GLUCOSE (06/14/2024 9:55 PM EST) Glucometer, POC 152 65 - 199 mg/dL 06/14/2024 9:56 PM EST [facility] Comment:Supplemental ranges: <140 mg/dL before meals <180 mg/dL all other times of the day. Blood CAPILLARY BLOOD / Unknown 06/14/2024 9:55 PM EST 06/14/2024 9:56 PM EST Bobby Loja MD POINT OF CARE TEST O RDBECKIE [facility] [place] [address] * POC, GLUCOSE (06/14/2024 8:54 PM EST) Glucometer, POC 151 65 - 199 mg/dL 06/14/2024 8:54 PM EST [facility] Comment:Supplemental ranges: <140 mg/dL before meals <180 mg/dL all other times of the day. Blood CAPILLARY BLOOD / Unknown 06/14/2024 8:54 PM EST 06/14/2024 8:54 PM EST Bobby Loja MD POINT OF CARE TEST O RDERAPIETER Performing Organization Address City/[facility]/ZIP Co de Phone Number [facility] [place] [address] * POC, GLUCOSE (06/14/2024 7:51 PM EST) Glucometer, POC 169 65 - 199 mg/dL 06/14/2024 7:52 PM EST [facility] Comment:Supplemental ranges: <140 mg/dL before meals <180 mg/dL all other times of the day. Blood CAPILLARY BLOOD / Unknown 06/14/2024 7:51 PM EST 06/14/2024 7:52 PM EST Bobby Loja MD POINT OF CARE TEST O RDERAPIETER Performing Organization Address City/[facility]/ZIP Co de Phone Number [facility] [place] [address] * POC, GLUCOSE (06/14/2024 6:49 PM EST) [...] O RDERAPIETER [facility] [place] [address] * (ABNORMAL) Hemoglobin (06/14/2024 6:19 PM EST) [facility] Hemoglobin 13.1(L) 13.7 - 16.5 g/dL 06/14/2024 7:08 PM EST [facility] Blood VENOUS BLOOD SPECIMEN / Unknown Venipuncture / Unknown 06/14/2024 6:19 PM EST 06/14/2024 6:28 PM EST Bobby Loja MD HEMATOLOGY ORDERABLE S Performing Organization Address [facility] Co mn Phone Number [facility] [place] [address] * Potassium (06/14/2024 6:19 PM EST) [facility] Potassium 3.9 3.5 - 5.0 mMol/L 06/14/2024 6:52 PM EST [facility] Blood VENOUS BLOOD SPECIMEN / Unknown Venipuncture / Unknown 06/14/2024 6:19 PM EST 06/14/2024 6:28 PM EST Bobby Loja MD CHEMISTRY ORDERABLES Performing Organization Address [facility] de Phone Number [facility] [place] [address] * (ABNORMAL) POC, GLUCOSE (06/14/2024 6:03 PM EST) [facility] Glucometer, POC 201(H) 65 - 199 mg/dL 06/14/2024 6:03 PM EST [facility] Comment:Supplemental ranges: <140 mg/dL before meals <180 mg/dL all other times of the day. Blood CAPILLARY BLOOD / Unknown 06/14/2024 6:03 PM EST 06/14/2024 6:03 PM EST Bobby Loja MD POINT OF CARE TEST O RDERABLES [facility] [place] [address] * (ABNORMAL) Blood Gas, Arterial POC (06/14/2024 4:51 PM EST) pH, Arterial 7.32(L) 7.35 - 7.45 06/14/2024 4:52 PM EST [facility] PCO2, Arterial 46(H) 35 - 45 mmHg 06/14/2024 4:52 PM [facility] PO2, Arterial 85 85 - 104 mmHg 06/14/2024 4:52 PM [facility] Bicarbonate, Arterial 23.1 20.0 - 26.0 mmol/L 06/14/2024 4:52 PM [facility] Base Excess, Arterial -3.1(L) -3.0 - 3.0 mmol/L 06/14/2024 4:52 PM [facility] Hemoglobin, Arterial 14.3 13.7 - 16.5 g/dL 06/14/2024 4:52 PM [facility] Oxyhemoglobin, Arterial 94.7 94.0 - 97.0 % 06/14/2024 4:52 PM [facility] Carboxyhemoglobin , Arterial 0.6 % 06/14/2024 4:52 PM [facility] Comment: Nonsmokers: 0.5-1.5% COHB ?? Smokers: Variable ??but usually less than 10% ?? Toxic: 20-30% COHB ?? Lethal: Greater than 60% COHB Methemoglobin, Arterial 0.0 <=1.5 % 06/14/2024 4:52 PM [facility] Sodium, Arterial 138 135 - 145 mmol/L 06/14/2024 4:52 PM [facility] Potassium, Arterial 4.1 3.5 - 5.0 mmol/L 06/14/2024 4:52 PM [facility] Chloride, Arterial 106 98 - 107 mmol/L 06/14/2024 4:52 PM [facility] Lactate, Arterial 1.3 0.5 - 2.2 mmol/L 06/14/2024 4:52 PM EST [facility] Fraction of Inspired Oxygen 40 % 06/14/2024 4:52 PM EST [facility] PF Ratio 213 Ratio 06/14/2024 4:52 PM EST [facility] Comment:PF ratio calculated using the [...] CARE TEST O NIKA Performing Organization Address City/[facility]/ZIP Co de Phone Number [facility] [place] [address] * POC, GLUCOSE (06/14/2024 4:00 PM EST) Pathologist [facility] Glucometer, POC 184 65 - 199 mg/dL 06/14/2024 4:01 PM EST [facility] Comment:Supplemental ranges: <140 mg/dL before meals <180 mg/dL all other times of the day. Blood CAPILLARY BLOOD / Unknown 06/14/2024 4:00 PM EST 06/14/2024 4:01 PM EST Bobby Loja MD POINT OF CARE TEST Abimael MAHER Performing Organization Address City/[facility]/[place] [address] * XR Chest One View (06/14/2024 3:05 PM EST) [employer] WORKSTATION ID [id number] RAD Anatomical Region Laterality Modality Chest N/A [...] have questions please contact the health manager critical care unit that requested your imaging first. ? Electronically signed by: Stuart Aponte MD, [facility] ??([phone]), at 06/14/2024 4:07 PM Narrative 06/14/2024 4:07 [...] who have questions please contactthe health manager critical care unit that requested your imaging first. Electronically signed by: Stuart Aponte MD, [facility]([phone]), at 06/14/2024 4:07 PM Bobby Loja MD IMG DX ORDERABLES * (ABNORMAL) Blood Gas, Arterial POC (06/14/2024 2:52 PM EST) pH, Arterial 7.28(LLL) 7.35 - 7.45 06/14/2024 2:53 PM EST [facility] PCO2, Arterial 50(H) 35 - 45 mmHg 06/14/2024 2:53 PM [facility] PO2, Arterial 510(H) 85 - 104 mmHg 06/14/2024 2:53 PM [facility] Bicarbonate, Arterial 22.8 20.0 - 26.0 mmol/L 06/14/2024 2:53 PM [facility] Base Excess, Arterial -4.0(L) -3.0 - 3.0 mmol/L 06/14/2024 2:53 PM [facility] Hemoglobin, Arterial 13.8 13.7 - 16.5 g/dL 06/14/2024 2:53 PM [facility] Oxyhemoglobin, Arterial 99.3(H) 94.0 - 97.0 % 06/14/2024 2:53 PM [facility] Carboxyhemoglobin , Arterial 0.6 % 06/14/2024 2:53 PM [facility] Comment: Nonsmokers: 0.5-1.5% COHB ?? Smokers: Variable ??but usually less than 10% ?? Toxic: 20-30% COHB ?? Lethal: Greater than 60% COHB Methemoglobin, Arterial 0.1 <=1.5 % 06/14/2024 2:53 PM [facility] Sodium, Arterial 138 135 - 145 mmol/L 06/14/2024 2:53 PM [facility] Potassium, Arterial 4.2 3.5 - 5.0 mmol/L 06/14/2024 2:53 PM [facility] Chloride, Arterial 106 98 - 107 mmol/L 06/14/2024 2:53 PM [facility] Lactate, Arterial 1.1 0.5 - 2.2 mmol/L 06/14/2024 2:53 PM [facility] Fraction of Inspired Oxygen 100 % 06/14/2024 2:53 PM [facility] PF Ratio 510 Ratio 06/14/2024 2:53 PM [facility] Comment:PF ratio calculated using the non-temperature corrected pO2 result. IONIZED CALCIUM, ARTERIAL 1.15 1.15 - 1.33 mmol/L 06/14/2024 2:53 PM [facility] Glucose, Arterial 169 65 - 199 mg/dL 06/14/2024 2:53 PM [facility] Comment:Glucose Concentratio n >=200 mg/dL plus symptoms is consistent with Diabetes Mellitus. Blood ARTERIAL BLOOD / Unknown 06/14/2024 2:52 PM EST 06/14/2024 2:53 PM EST Bobby Loja MD POINT OF CARE TEST O RDERABLES Performing Organization Address City/[facility]/ZIP Co de Phone Number [facility] [place] [address] * EKG 12 Lead (06/14/2024 2:46 PM EST) Ventricular rate 80 BPM MUSE SYSTEM Atrial Rate 80 BPM MUSE SYSTEM P-R Interval 120 ms MUSE SYSTEM QRS Duration 108 ms MUSE SYSTEM Q-T Interval 454 ms MUSE SYSTEM QTC Calculated (Bezet) 523 ms MUSE SYSTEM Calculated P Mumford 70 degrees MUSE SYSTEM Calculated R Mumford 56 degrees MUSE SYSTEM Calculated T Mumford 50 degrees MUSE SYSTEM INTERPRETATION AV dual-paced rhythm Abnormal ECG When compared with ECG of 03-JUN-2024 01:45, Vent. rate has increased BY ??17 BPM Confirmed by MD Marisol, Shaheen ([id number]) on 06/15/2024 1:57:23 PM MUSE SYSTEM 06/14/2024 2:46 PM EST 06/15/2024 1:57 PM EST Bobby Loja MD ECG ORDERABLES Performing Organization Address City/[facility]/ZIP Co de Phone Number MUSE SYSTEM * Prepare RBC (06/14/2024 2:27 PM EST) Status Information Returned [facility] Product Identification RBC [facility] Unit [facility] [id number] [facility] Product [facility] [id number] [facility] BL [facility]OD [facility]ANK [...] [facility] Unit Number [id number] [facility] Product [facility] [id number] [facility] Unit Blood Type OPOS [facility] Specimen Expiration Date [facility] Volulme 350 [facility] Issue Date / Time [facility] Blood 06/14/2024 6:2 5 AM EST Haaj Byrnes MD BLOOD BANK PRODUCT O RDERAPIETER [facility] [place] [address] * (ABNORMAL) Cooximetry, POC (06/14/2024 1:52 PM [...] PM EST 06/14/2024 1:55 PM EST Haja Brynes MD POINT OF CARE TEST O NIKA Performing Organization Address City/[facility]/ZIP Co de Phone Number [facility] [place] [address] * (ABNORMAL) Blood Gas, Arterial POC (06/14/2024 12:47 PM EST) pH, Arterial 7.33(L) 7.35 - 7.45 06/14/2024 12:48 PM EST [facility] PCO2, Arterial 46(H) 35 - 45 mmHg 06/14/2024 12:48 PM EST [facility] PO2, Arterial 358(H) 85 - 104 mmHg 06/14/2024 12:48 PM [facility] Bicarbonate, Arterial 23.8 20.0 - 26.0 mmol/L 06/14/2024 12:48 PM [facility] Base Excess, Arterial -2.1 -3.0 - 3.0 mmol/L 06/14/2024 12:48 PM [facility] Hemoglobin, Arterial 11.7(L) 13.7 - 16.5 g/dL 06/14/2024 12:48 PM [facility] Oxyhemoglobin, Arterial 98.7(H) 94.0 - 97.0 % 06/14/2024 12:48 PM [facility] Carboxyhemoglobin , Arterial 0.3 % 06/14/2024 12:48 PM [facility] Comment: Nonsmokers: 0.5-1.5% COHB ?? Smokers: Variable ??but usually less than 10% ?? Toxic: 20-30% COHB ?? Lethal: Greater than 60% COHB Methemoglobin, Arterial 0.5 <=1.5 % 06/14/2024 12:48 PM [facility] Sodium, Arterial 135 135 - 145 mmol/L 06/14/2024 12:48 PM [facility] Potassium, Arterial 5.0 3.5 - 5.0 mmol/L 06/14/2024 12:48 PM [facility] Chloride, Arterial 106 98 - 107 mmol/L 06/14/2024 12:48 PM [facility] Lactate, Arterial 1.4 0.5 - 2.2 mmol/L 06/14/2024 12:48 PM [facility] IONIZED CALCIUM, ARTERIAL 1.09(L) 1.15 - 1.33 mmol/L 06/14/2024 12:48 PM [facility] Glucose, Arterial 157 65 - 199 mg/dL 06/14/2024 12:48 PM [facility] Comment:Glucose Concentratio n >=200 mg/dL plus symptoms is consistent with Diabetes Mellitus. Blood ARTERIAL BLOOD / Unknown 06/14/2024 12:47 PM EST 06/14/2024 12:48 PM EST Haja Byrnes MD POINT OF CARE TEST O NIKA [facility] [place] [address] * (ABNORMAL) Cooximetry, POC (06/14/2024 12:42 PM [...] O NIKA [facility] [place] [address] * (ABNORMAL) Platelet count (06/14/2024 12:30 PM EST) Platelet 73(L) 145 - 357 x10(3)/mcL 06/14/2024 12:54 PM EST [facility] Blood ARTERIAL BLOOD / Unknown 06/14/2024 12:30 PM EST Comment:Pre-op diagnosis: CAD Bobby Loja MD HEMATOLOGY ORDERABLE S Performing Organization Address City/[facility]/ZIP Co de Phone Number [facility] [place] [address] * (ABNORMAL) Hemoglobin and Hematocrit, blood (06/14/2024 [...] MD HEMATOLOGY ORDERABLE S Performing Organization Address [facility]/ZIP Co de Phone Number [facility] [place] [address] * APTT (06/14/2024 12:30 PM EST) Partial [...] MD HEMATOLOGY ORDERABLE S Performing Organization Address City/[facility]/ZIP Co de Phone Number [facility] [place] [address] * (ABNORMAL) Prothrombin Time (06/14/2024 12:30 PM [...] MD HEMATOLOGY ORDERABLE S Performing Organization Address City/[facility]/ZIP Co de Phone Number [facility] [place] [address] * Fibrinogen (06/14/2024 12:30 PM EST) Fibrinogen [...] ORDERABLE S [facility] [place] [address] * (ABNORMAL) Blood Gas, Arterial POC (06/14/2024 12:15 PM EST) pH, Arterial 7.38 7.35 - 7.45 06/14/2024 12:16 PM EST [facility] PCO2, Arterial 40 35 - 45 mmHg 06/14/2024 12:16 PM [facility] Bicarbonate, Arterial 22.9 20.0 - 26.0 mmol/L 06/14/2024 12:16 PM [facility] Base Excess, Arterial -2.3 -3.0 - 3.0 mmol/L 06/14/2024 12:16 PM [facility] Hemoglobin, Arterial 11.4(L) 13.7 - 16.5 g/dL 06/14/2024 12:16 PM [facility] Oxyhemoglobin, Arterial 98.8(H) 94.0 - 97.0 % 06/14/2024 12:16 PM [facility] Carboxyhemoglobin , Arterial 0.3 % 06/14/2024 12:16 PM [facility] Comment: Nonsmokers: 0.5-1.5% COHB ?? Smokers: Variable ??but usually less than 10% ?? Toxic: 20-30% COHB ?? Lethal: Greater than 60% COHB Methemoglobin, Arterial 0.6 <=1.5 % 06/14/2024 12:16 PM [facility] Sodium, Arterial 134(L) 135 - 145 mmol/L 06/14/2024 12:16 PM [facility] Potassium, Arterial 5.4(H) 3.5 - 5.0 mmol/L 06/14/2024 12:16 PM [facility] Chloride, Arterial 105 98 - 107 mmol/L 06/14/2024 12:16 PM [facility] Lactate, Arterial 1.3 0.5 - 2.2 mmol/L 06/14/2024 12:16 PM [facility] IONIZED CALCIUM, ARTERIAL 1.08(L) 1.15 - 1.33 mmol/L 06/14/2024 12:16 PM [facility] Glucose, Arterial 161 65 - 199 mg/dL 06/14/2024 12:16 PM [facility] Comment:Glucose Concentratio n >=200 mg/dL plus symptoms is consistent with Diabetes Mellitus. Blood ARTERIAL BLOOD / Unknown 06/14/2024 12:15 PM EST 06/14/2024 12:16 PM EST Haja Byrnes MD POINT OF CARE TEST O RDERABLES [facility] [place] [address] * (ABNORMAL) Blood Gas, Arterial POC (06/14/2024 11:51 AM EST) pH, Arterial 7.40 7.35 - 7.45 06/14/2024 11:52 AM [facility] PCO2, Arterial 41 35 - 45 mmHg 06/14/2024 11:52 AM [facility] PO2, Arterial 332(H) 85 - 104 mmHg 06/14/2024 11:52 AM [facility] Bicarbonate, Arterial 24.7 20.0 - 26.0 mmol/L 06/14/2024 11:52 AM [facility] Base Excess, Arterial -0.1 -3.0 - 3.0 mmol/L 06/14/2024 11:52 AM [facility] Hemoglobin, Arterial 11.1(L) 13.7 - 16.5 g/dL 06/14/2024 11:52 AM [facility] Oxyhemoglobin, Arterial 98.7(H) 94.0 - 97.0 % 06/14/2024 11:52 AM [facility] Carboxyhemoglobin , Arterial 0.3 % 06/14/2024 11:52 AM [facility] Comment: Nonsmokers: 0.5-1.5% COHB ?? Smokers: Variable ??but usually less than 10% ?? Toxic: 20-30% COHB ?? Lethal: Greater than 60% COHB Methemoglobin, Arterial 0.4 <=1.5 % 06/14/2024 11:52 AM [facility] Sodium, Arterial 135 135 - 145 mmol/L 06/14/2024 11:52 AM [facility] Potassium, Arterial 5.7(H) 3.5 - 5.0 mmol/L 06/14/2024 11:52 AM [facility] Chloride, Arterial 105 98 - 107 mmol/L 06/14/2024 11:52 AM [facility] Lactate, Arterial 1.2 0.5 - 2.2 mmol/L 06/14/2024 11:52 AM [facility] IONIZED CALCIUM, ARTERIAL 1.10(L) 1.15 - 1.33 mmol/L 06/14/2024 11:52 AM [facility] Glucose, Arterial 148 65 - 199 mg/dL 06/14/2024 11:52 AM [facility] Comment:Glucose Concentratio n >=200 mg/dL plus symptoms is consistent with Diabetes Mellitus. Blood ARTERIAL BLOOD / Unknown 06/14/2024 11:51 AM EST 06/14/2024 11:52 AM EST Haja Byrnes MD POINT OF CARE TEST O RDERABLES [facility] [place] [address] * (ABNORMAL) Blood Gas, Arterial POC (06/14/2024 11:27 AM EST) pH, Arterial 7.38 7.35 - 7.45 06/14/2024 11:28 AM [facility] PCO2, Arterial 37 35 - 45 mmHg 06/14/2024 11:28 AM [facility] PO2, Arterial 348(H) 85 - 104 mmHg 06/14/2024 11:28 AM [facility] Bicarbonate, Arterial 21.1 20.0 - 26.0 mmol/L 06/14/2024 11:28 AM [facility] Base Excess, Arterial -4.1(L) -3.0 - 3.0 mmol/L 06/14/2024 11:28 AM [facility] [facility] Hemoglobin, Arterial 11.0(L) 13.7 - 16.5 g/dL 06/14/2024 11:28 AM [facility] Oxyhemoglobin, Arterial 98.7(H) 94.0 - 97.0 % 06/14/2024 11:28 AM [facility] Carboxyhemoglobin , Arterial 0.3 % 06/14/2024 11:28 AM [facility] Comment: Nonsmokers: 0.5-1.5% COHB ?? Smokers: Variable ??but usually less than 10% ?? Toxic: 20-30% COHB ?? Lethal: Greater than 60% COHB Methemoglobin, Arterial 0.4 <=1.5 % 06/14/2024 11:28 AM [facility] Sodium, Arterial 132(L) 135 - 145 mmol/L 06/14/2024 11:28 AM [facility] Potassium, Arterial 5.8(H) 3.5 - 5.0 mmol/L 06/14/2024 11:28 AM [facility] Chloride, Arterial 105 98 - 107 mmol/L 06/14/2024 11:28 AM [facility] Lactate, Arterial 1.1 0.5 - 2.2 mmol/L 06/14/2024 11:28 AM [facility] IONIZED CALCIUM, ARTERIAL 1.03(L) 1.15 - 1.33 mmol/L 06/14/2024 11:28 AM [facility] Glucose, Arterial 147 65 - 199 mg/dL 06/14/2024 11:28 AM [facility] Comment:Glucose Concentratio n >=200 mg/dL plus symptoms is consistent with Diabetes Mellitus. Blood ARTERIAL BLOOD / Unknown 06/14/2024 11:27 AM EST 06/14/2024 11:28 AM EST Haja Byrnes MD POINT OF CARE TEST O RDERABLES [facility] [place] [address] * (ABNORMAL) Scan, Peripheral Blood (06/14/2024 11:23 AM EST) RBC Morphology Abnormal 06/14/2024 11:59 AM EST [facility] Platelet Estimate Decreased(A) Normal 06/14/2024 11:59 AM EST [facility] [place] cells 1-5 /HPF 06/14/2024 11:59 AM EST [facility] Blood ARTERIAL BLOOD / Unknown 06/14/2024 11:23 AM EST 06/14/2024 11:27 AM EST Bobby Loja MD HEMATOLOGY ORDERABLE S [facility] [place] [address] * (ABNORMAL) Platelet count (06/14/2024 11:23 AM EST) Platelet 86(L) 145 - 357 x10(3)/mcL 06/14/2024 11:59 AM EST [facility] Blood ARTERIAL BLOOD / Unknown 06/14/2024 11:23 AM EST Comment:Pre-op diagnosis: CAD Bobby Loja MD HEMATOLOGY ORDERABLE S [facility] [place] [address] * (ABNORMAL) Hemoglobin and Hematocrit, blood (06/14/2024 [...] ORDERABLE S [facility] [place] [address] * (ABNORMAL) Blood Gas, Arterial POC (06/14/2024 10:58 AM EST) pH, Arterial 7.38 7.35 - 7.45 06/14/2024 10:59 AM [facility] PCO2, Arterial 43 35 - 45 mmHg 06/14/2024 10:59 AM [facility] PO2, Arterial 401(H) 85 - 104 mmHg 06/14/2024 10:59 AM [facility] Bicarbonate, Arterial 24.8 20.0 - 26.0 mmol/L 06/14/2024 10:59 AM [facility] Base Excess, Arterial -0.5 -3.0 - 3.0 mmol/L 06/14/2024 10:59 AM [facility] Hemoglobin, Arterial 11.9(L) 13.7 - 16.5 g/dL 06/14/2024 10:59 AM [facility] Oxyhemoglobin, Arterial 99.0(H) 94.0 - 97.0 % 06/14/2024 10:59 AM [facility] Carboxyhemoglobin , Arterial 0.3 % 06/14/2024 10:59 AM [facility] Comment: Nonsmokers: 0.5-1.5% COHB ?? Smokers: Variable ??but usually less than 10% ?? Toxic: 20-30% COHB ?? Lethal: Greater than 60% COHB Methemoglobin, Arterial 0.3 <=1.5 % 06/14/2024 10:59 AM [facility] Sodium, Arterial 128(L) 135 - 145 mmol/L 06/14/2024 10:59 AM [facility] Potassium, Arterial 6.6(HHH) 3.5 - 5.0 mmol/L 06/14/2024 10:59 AM [facility] Chloride, Arterial 99 98 - 107 mmol/L 06/14/2024 10:59 AM [facility] Lactate, Arterial 1.3 0.5 - 2.2 mmol/L 06/14/2024 10:59 AM [facility] IONIZED CALCIUM, ARTERIAL 1.00(L) 1.15 - 1.33 mmol/L 06/14/2024 10:59 AM [facility] Glucose, Arterial 155 65 - 199 mg/dL 06/14/2024 10:59 AM [facility] Comment:Glucose Concentratio n >=200 mg/dL plus symptoms is consistent with Diabetes Mellitus. Blood ARTERIAL BLOOD / Unknown 06/14/2024 10:58 AM EST 06/14/2024 10:59 AM EST Haja Byrnes MD POINT OF CARE TEST O RDERABLES [facility] [place] [address] * (ABNORMAL) Blood Gas, Arterial POC (06/14/2024 10:26 AM EST) pH, Arterial 7.29(LLL) 7.35 - 7.45 06/14/2024 10:27 AM [facility] PCO2, Arterial 43 35 - 45 mmHg 06/14/2024 10:27 AM [facility] PO2, Arterial 369(H) 85 - 104 mmHg 06/14/2024 10:27 AM [facility] Bicarbonate, Arterial 19.9(L) 20.0 - 26.0 mmol/L 06/14/2024 10:27 AM [facility] Base Excess, Arterial -6.7(L) -3.0 - 3.0 mmol/L 06/14/2024 10:27 AM [facility] Hemoglobin, Arterial 12.6(L) 13.7 - 16.5 g/dL 06/14/2024 10:27 AM [facility] Oxyhemoglobin, Arterial 99.1(H) 94.0 - 97.0 % 06/14/2024 10:27 AM [facility] Carboxyhemoglobin , Arterial 0.1 % 06/14/2024 10:27 AM [facility] Comment: Nonsmokers: 0.5-1.5% COHB ?? Smokers: Variable ??but usually less than 10% ?? Toxic: 20-30% COHB ?? Lethal: Greater than 60% COHB Methemoglobin, Arterial 0.4 <=1.5 % 06/14/2024 10:27 AM [facility] Sodium, Arterial 129(L) 135 - 145 mmol/L 06/14/2024 10:27 AM [facility] Potassium, Arterial 5.0 3.5 - 5.0 mmol/L 06/14/2024 10:27 AM [facility] Chloride, Arterial 99 98 - 107 mmol/L 06/14/2024 10:27 AM [facility] Lactate, Arterial 0.9 0.5 - 2.2 mmol/L 06/14/2024 10:27 AM [facility] IONIZED CALCIUM, ARTERIAL 1.05(L) 1.15 - 1.33 mmol/L 06/14/2024 10:27 AM [facility] Glucose, Arterial 149 65 - 199 mg/dL 06/14/2024 10:27 AM [facility] Comment:Glucose Concentratio n >=200 mg/dL plus symptoms is consistent with Diabetes Mellitus. Blood ARTERIAL BLOOD / Unknown 06/14/2024 10:26 AM EST 06/14/2024 10:27 AM EST Haja Byrnes MD POINT OF CARE TEST O NIKA [facility] [place] [address] * (ABNORMAL) Blood Gas, Arterial POC (06/14/2024 10:25 AM EST) pH, Arterial 7.26(LLL) 7.35 - 7.45 06/14/2024 10:26 AM [facility] PCO2, Arterial 48(H) 35 - 45 mmHg 06/14/2024 10:26 AM [facility] Bicarbonate, Arterial 21.2 20.0 - 26.0 mmol/L 06/14/2024 10:26 AM [facility] Base Excess, Arterial -5.8(L) -3.0 - 3.0 mmol/L 06/14/2024 10:26 AM [facility] Hemoglobin, Arterial 12.5(L) 13.7 - 16.5 g/dL 06/14/2024 10:26 AM [facility] Oxyhemoglobin, Arterial 82.3(L) 94.0 - 97.0 % 06/14/2024 10:26 AM [facility] Carboxyhemoglobin , Arterial 0.5 % 06/14/2024 10:26 AM [facility] Comment: Nonsmokers: 0.5-1.5% COHB ?? Smokers: Variable ??but usually less than 10% ?? Toxic: 20-30% COHB ?? Lethal: Greater than 60% COHB Methemoglobin, Arterial 0.5 <=1.5 % 06/14/2024 10:26 AM [facility] Sodium, Arterial 131(L) 135 - 145 mmol/L 06/14/2024 10:26 AM [facility] Potassium, Arterial 4.6 3.5 - 5.0 mmol/L 06/14/2024 10:26 AM [facility] Chloride, Arterial 103 98 - 107 mmol/L 06/14/2024 10:26 AM [facility] Lactate, Arterial 0.8 0.5 - 2.2 mmol/L 06/14/2024 10:26 AM [facility] IONIZED CALCIUM, ARTERIAL 0.91(LLL) 1.15 - [...] CARE TEST O RDERABLES Performing Organization Address City/State/[facility] Co de Phone Number [facility] [place] [address] * Surgical Pathology (06/14/2024 9:53 AM EST) Case Report Surgical Pathology Report ? Case: [id number] ? Authorizing Provider: ??Bobby Loja MD ? Collected: ? 06/14/2024 0953 ? Ordering Location: ? Main Operating Room [facility] ?? Received: ?06/14/2024 1413 ? [facility] ? Hospital ? Pathologist: ? Sandra Salas MD ? Specimens: ?? A) - Soft Tissue Mass, mediastinal mass ? B) - Heart, Atrial Appendage, Left ? 06/18/2024 10:18 AM [facility] Final Diagnosis A. Soft Tissue Mass, Mediastinal Mass, Excision: - Atrophic thymic tissue B. Heart, Atrial Appendage, Left, Excision: - Mild myocyte hypertrophy 06/18/2024 10:18 AM [facility] Clinical Information A. Soft Tissue Mass, mediastinal mass Soft tissue mass Mediastinal mass B. Heart, Atrial Appendage, Left, *Other - as specified in Clinical Information MARIALUISA 06/18/2024 10:18 AM [facility] Gross Description A. Soft Tissue Mass, mediastinal mass. A - Labeled/Fixative : Mediastinal mass, fresh. Quantity/Size: Single, 7.2 x 5.3 x 1.2 cm. Tissue Description: Unoriented, intact portion of soft, rodriguez-yellow, lobulated tissue. The cut surface is homogenously pale-rodriguez, yellow and lobulated. No lesions or nodules are identified. Inking: External surface inked black Sections/Process ing: Staff Radiographer sections in 4 cassettes labeled A1-A4. cmk B. Heart, Atrial Appendage, Left, . B - Labeled/Fixative : Heart, atrial appendage, left, fresh. Quantity/Size: Single, 3.3 x 1.5 x 0.8 cm. Tissue Description: Portion of heart tissue consisting of rodriguez-white, semitranslucent, smooth endocardium with rodriguez-brown muscular myocardium and thin translucent epicardium with adherent adipose tissue. No areas of discoloration identified. Sections/Process ing: Staff Radiographer sections in 1 cassette labeled B1. cmk 06/18/2024 10:18 AM EST [facility] Result Note Routine 06/18/2024 10:18 AM [facility] Tissue SOFT TISSUE MASS / Unknown 06/14/2024 9:53 AM EST 06/14/2024 2:13 PM EST Comment:Mediastinal mass Tissue specimen (specimen) LEFT ATRIAL APPENDAGE ABSENT / Unknown 06/14/2024 10:54 AM EST 06/14/2024 2:13 PM EST Comment:MARIALUISA Bobby Loja MD PATHOLOGY/CYTOLOGY O RDERABLES [facility] [place] [address] * Cooximetry, POC (06/14/2024 9:00 AM EST) pO2, Coox 57 mmHg 06/14/2024 9:04 AM [facility] PO2 Corrected, COOX 50 mmHg 06/14/2024 9:04 AM [facility] Hemoglobin, Coox 14.3 13.7 - 16.5 g/dL 06/14/2024 9:04 AM [facility] Oxyhemoglobin, Coox 86.2 % 06/14/2024 9:04 AM [facility] Carboxyhemoglobi n, Coox 0.3 % 06/14/2024 9:04 AM [facility] Comment: Nonsmokers: 0.5-1.5% COHB ?? Smokers: Variable ??but usually less than 10% ?? Toxic: 20-30% COHB ?? Lethal: Greater than 60% COHB Methemoglobin, Coox 0.3 <=1.5 % 06/14/2024 9:04 AM [facility] Temperature Coox 35.2 C 06/14/20 24 9:04 AM [facility] Blood (Mixed Venous) 06/14/2024 9:00 AM EST 06/14/2024 9:04 AM EST Haja Byrnes MD POINT OF CARE TEST O RDERABLES [facility] [place] [address] * (ABNORMAL) Blood Gas, Arterial POC (06/14/2024 8:39 AM EST) pH, Arterial 7.37 7.35 - 7.45 06/14/2024 8:40 AM [facility] PCO2, Arterial 42 35 - 45 mmHg 06/14/2024 8:40 AM [facility] PO2, Arterial 341(H) 85 - 104 mmHg 06/14/2024 8:40 AM [facility] Bicarbonate, Arterial 23.7 20.0 - 26.0 mmol/L 06/14/2024 8:40 AM [facility] Base Excess, Arterial -1.6 -3.0 - 3.0 mmol/L 06/14/2024 8:40 AM [facility] Hemoglobin, Arterial 15.2 13.7 - 16.5 g/dL 06/14/2024 8:40 AM [facility] Oxyhemoglobin, Arterial 99.2(H) 94.0 - 97.0 % 06/14/2024 8:40 AM [facility] Carboxyhemoglobin , Arterial 0.1 % 06/14/2024 8:40 AM [facility] Comment: Nonsmokers: 0.5-1.5% COHB ?? Smokers: Variable ??but usually less than 10% ?? Toxic: 20-30% COHB ?? Lethal: Greater than 60% COHB Methemoglobin, Arterial 0.3 <=1.5 % 06/14/2024 8:40 AM EST [facility] Sodium, Arterial 136 135 - 145 mmol/L 06/14/2024 8:40 AM [facility] Potassium, Arterial 4.2 3.5 - 5.0 mmol/L 06/14/2024 8:40 AM EST [facility] Chloride, Arterial 102 98 - 107 mmol/L 06/14/2024 8:40 AM EST [facility] Lactate, Arterial 0.9 0.5 - 2.2 mmol/L 06/14/2024 8:40 AM [facility] IONIZED CALCIUM, ARTERIAL 1.17 1.15 - 1.33 mmol/L 06/14/2024 8:40 AM [facility] Glucose, Arterial 121 65 - 199 mg/dL 06/14/2024 8:40 AM [facility] Comment:Glucose Concentratio n >=200 mg/dL plus symptoms is consistent with Diabetes Mellitus. Blood ARTERIAL BLOOD / Unknown 06/14/2024 8:39 AM EST 06/14/2024 8:40 AM EST Haja Byrnes MD POINT OF CARE TEST O RDERABLES Performing Organization Address City/State/[facility] Co de Phone Number [facility] [place] [address] * Transesophageal Echo/OR (06/14/2024 7:20 AM EST) Anatomical Region Laterality Modality Cardiac Other 06/14/2024 7:20 AM EST Narrative 06/14/2024 4:36 PM EST Version: 2 Study ID: [id number] [id number] ?OR Transesophageal Echo Report Name: GEORGE MEHTA [...] of this mass after consultation with other pick up driver experts and the decision was made by [...] MD - 06/14/2024 Version: 2 Study ID: [id number] [address] [place] [id number] ORTransesophageal Echo Report Name: GEORGE MEHTA Study [...] of this mass after consultation with other pick up driver experts and thedecision was made by surgeon [...] O RDERABLES [facility] [place] [address] * POC, GLUCOSE (06/14/2024 4:30 AM EST) Glucometer, POC 85 65 - 199 mg/dL 06/14/2024 4:30 AM EST [facility] Comment:Supplemental ranges: <140 mg/dL before meals <180 mg/dL all other times of the day. Blood CAPILLARY BLOOD / Unknown 06/14/2024 4:30 AM EST 06/14/2024 4:30 AM EST Haja Byrnes MD POINT OF CARE TEST O RDERABLES Performing Organization Address City/[facility]/ZIP Co de Phone Number [facility] [place] [address] * (ABNORMAL) Heparin (unfractionated) Level (06/14/2024 12:12 AM EST) UF Heparin 1.02([facility]) IU/mL 06/14/2024 12:46 AM EST [facility] MD HEMATOLOGY ORDERABLE S Performing Organization Address City/[facility]/ZIP Co de Phone Number [facility] [place] [address] * (ABNORMAL) CBC (with Diff) (06/14/2024 12:12 AM EST) White Blood Cell 10.51(H) 4.00 - 9.50 x10(3)/mc L 06/14/2024 12:38 AM [facility] Red Blood Cell 4.99 4.58 - 5.54 x10(6)/mc L 06/14/2024 12:38 AM [facility] Hemoglobin 14.9 13.7 - 16.5 g/dL 06/14/2024 12:38 AM [facility] Hematocrit 45.9 40.5 - 48.5 % 06/14/2024 12:38 AM [facility] Mean Cell Volume 92.0 82.9 - 93.1 fL 06/14/2024 12:38 AM [facility] Mean Cell Hemoglobin 29.9 27.5 - 32.1 pg 06/14/2024 12:38 AM [facility] Mean Cell Hemoglobin Concentration 32.5 32.0 - 35.7 g/dL 06/14/2024 12:38 AM [facility] Platelet 162 145 - 357 x10(3)/mc L 06/14/2024 12:38 AM [facility] Mean Platelet Volume 10.1 7.6 - 12.9 fL 06/14/2024 12:38 AM [facility] RDW Standard Deviation 46.9(H) 36.0 - 45.0 fL 06/14/2024 12:38 AM [facility] RDW coefficient of variation 13.8 11.4 - 13.8 % 06/14/2024 12:38 AM [facility] NRBC% auto 0.0 % 06/14/2024 12:38 AM [facility] NRBC Absolute <0.01 <0.01 x10(3)/mc L 06/14/2024 12:38 AM [facility] Neutrophil % 56.7 % 06/14/2024 12:38 AM [facility] Neutrophil Absolute (ANC) - Automated 5.96 1.70 - 6.10 x10(3)/mc L 06/14/2024 12:38 AM EST [facility] Lymph % 26.8 % 06/14/2024 12:38 AM [facility] Lymph Absolute 2.82 0.90 - 3.20 x10(3)/mc L 06/14/2024 12:38 AM [facility] Monocyte % 11.2 % 06/14/2024 12:38 AM [facility] Monocyte Absolute 1.18(H) 0.30 - 0.90 x10(3)/mc L 06/14/2024 12:38 AM [facility] Eos % 3.9 % 06/14/2024 12:38 AM [facility] Eos Absolute 0.41(H) 0.00 - 0.40 x10(3)/mc L 06/14/2024 12:38 AM [facility] Basophil % 0.8 % 06/14/2024 12:38 AM [facility] Baso Absolute 0.08 0.00 - 0.10 x10(3)/mc L 06/14/2024 12:38 AM [facility] Immature Gran % 0.6 % 12:38 AM [facility] Immature Gran Absolute 0.06(H) 0.00 - 0.04 x10(3)/mc L 06/14/2024 12:38 AM [facility] Blood VENOUS BLOOD SPECIMEN / Unknown Venipuncture / Unknown 06/14/2024 12:12 AM EST 06/14/2024 12:29 AM EST Shahnaz Scanlon MD HEMATOLOGY ORDERABLE S [facility] [place] [address] * Magnesium (06/14/2024 12:12 AM EST) Magnesium 0.74 0.69 - 1.07 mMol/L 06/14/2024 12:57 AM [facility] Blood VENOUS BLOOD SPECIMEN / Unknown Venipuncture / Unknown 06/14/2024 12:12 AM EST 06/14/2024 12:29 AM EST Shahnaz Scanlon MD CHEMISTRY ORDERABLES [facility] [place] [address] * (ABNORMAL) Basic Metabolic Panel (06/14/2024 12:12 AM EST) Glucose 97 65 - 199 mg/dL 06/14/2024 12:57 AM [facility] Comment:Glucose Concentratio n >=200 mg/dL plus symptoms is consistent with Diabetes Mellitus. Blood Urea Nitrogen 25(H) 10 - 20 mg/dL 06/14/2024 12:57 AM [facility] Creatinine 1.14 0.80 - 1.50 mg/dL 06/14/2024 12:57 AM [facility] Sodium 135 135 - 145 mMol/L 06/14/2024 12:57 AM [facility] Potassium 4.1 3.5 - 5.0 mMol/L 06/14/2024 12:57 AM [facility] Chloride 100 98 - 107 mMol/L 06/14/2024 12:57 AM [facility] Carbon Dioxide 25 22 - 31 mMol/L 06/14/2024 12:57 AM [facility] Anion Gap 10 5 - 15 mMol/L 06/14/2024 12:57 AM [facility] Calcium 9.5 8.5 - 10.5 mg/dL 06/14/2024 12:57 AM [facility] Est Glomerular Filtration Rate - Male 70 mL/min/1. 73 m?? 06/14/2024 12:57 AM [facility] Comment: [...] Scanlon MD CHEMISTRY ORDERABLES Performing Organization Address [facility]/ZIP Co de Phone Number [facility] [place] [address] * Scan Doc: Implantable Devices (06/14/2024 12:00 [...] CARE TEST O RDERABLES Performing Organization Address City/[facility]/ZIP Co de Phone Number [facility] [place] [address] * (ABNORMAL) POC, GLUCOSE (06/13/2024 8:03 PM EST) Glucometer, POC 206(H) 65 - 199 mg/dL 06/13/2024 8:03 PM EST [facility] Comment:Supplemental ranges: <140 mg/dL before meals <180 mg/dL all other times of the day. Blood CAPILLARY BLOOD / Unknown 06/13/2024 8:03 PM EST 06/13/2024 8:03 PM EST Haja Byrnes MD POINT OF CARE TEST O RDERABLES Performing Organization Address City/[facility]/ZIP Co de Phone Number [facility] [place] [address] * Heparin (unfractionated) Level (06/13/2024 4:11 PM [...] ORDERABLE S [facility] [place] [address] * ABORH RECHECK (06/13/2024 4:11 PM EST) ABORH Recheck O POSITIVE 06/13/2024 4:50 PM EST [facility] Blood VENOUS BLOOD SPECIMEN / Unknown Venipuncture / Unknown 06/13/2024 4:11 PM EST 06/13/2024 4:19 PM EST Haja Byrnes MD BLOOD BANK LAB ORDER [place] [facility] [place] [address] * (ABNORMAL) POC, GLUCOSE (06/13/2024 4:09 PM EST) [facility] Glucometer, POC 216(H) 65 - 199 mg/dL 06/13/2024 4:10 PM EST [facility] Comment:Supplemental ranges: <140 mg/dL before meals <180 mg/dL all other times of the day. Blood CAPILLARY BLOOD / Unknown 06/13/2024 4:09 PM EST 06/13/2024 4:10 PM EST Haja Byrnes MD POINT OF CARE TEST O RDERABLES [facility] [place] [address] * Type and screen ([facility]/CGP/RAFITA) (06/13/2024 11:53 AM [...] BANK LABORATORY T&S only valid at [facility] 06/13/2024 1:16 PM EST [facility] BLOOD BANK LABORATORY Blood VENOUS BLOOD SPECIMEN / Unknown Venipuncture / Unknown 06/13/2024 11:53 AM EST 06/13/2024 11:56 AM EST Narrative [facility] B[facility] - 06/13/2024 1:16 PM EST This Type and Screen result is only valid at the [facility] Haja Byrnes MD BLOOD BANK LAB ORDER EUSE[place]IA Performing Organization Address [facility] Co de Phone Number [facility] [place] [address] * POC, GLUCOSE (06/13/2024 11:50 AM EST) Glucometer, POC 178 65 - 199 mg/dL 06/13/2024 11:51 AM EST [facility] Comment:Supplemental ranges: <140 mg/dL before meals <180 mg/dL all other times of the day. Blood CAPILLARY BLOOD / Unknown 06/13/2024 11:50 AM EST 06/13/2024 11:51 AM EST Haja Byrnes MD POINT OF CARE TEST O RDERABLES Performing Organization Address [facility] de Phone Number [facility] [place] [address] * XR Chest One View (06/13/2024 10:35 AM EST) WORKSTATION ID [id number] [facility] Anatomical Region Laterality Modality Chest [...] have questions please contact the health manager critical care unit that requested your imaging first. ? Electronically signed by: Jyothi Simon MD, [facility] ([phone]), at 06/13/2024 10:43 AM Narrative 06/13/2024 10:43 [...] who have questions please contactthe health manager critical care unit that requested your imaging first. Electronically signed by: Jyothi Simon MD, [facility]([phone]), at 06/13/2024 10:43 AM Haja Byrnes MD IMG DX ORDERABLES * CARDIAC CATHETERIZATION (06/13/2024 9:02 AM EST) Anatomical Region Laterality Modality Other Narrative 06/15/2024 9:07 AM EST ?[place] ? Cardiac Catheterization/Intervention Report ? Patient Name: Tyson, George L. ? Procedure Date: 06/13/2024 ? A #: [id number] ? Primary Physician: Nuha Shen I ? Case #: [id number] ? File Name: [id number] ? Catheterization Order Number: [id number] ? [facility] ? Final Report [place], [place] ? Patient Name: ? George LViry Mehta ? ID#: ?[id number] ? : ?1955 ? Procedure Date: ? June 13, 2024 ?Case #: ? [id number] ? Room: ? 6 ? Case Physician: [...] procedure was Urgent. The indication for ?the geophysical laboratory supervisor visit is ACS greater than 24 hrs [...] angiography, vascular ?ultrasound and IABP insertion in geophysical laboratory supervisor. ? Nuha Shen M.D. ? Electronically Signed by: Nuha Shen M.D. ? Report Finalized: 06/15/2024 ??08:59 ? Procedure Note Nuha Shen MD - 06/15/2024 [place] [facility]ter[facility]/Intervention Report Patient Name: George MehtaViry Procedure Date: 06/13/2024 A #: [id number] Primary Physician: uNha Shen I Case #: [id number] File Name: [id number] Catheterization Order Number: [id number] [facility] FinalReport [place], [place] Patient Name: George Mehta ID#:[id number] :1955 Procedure Date: June 13, 2024 Case [...] diagnostic procedure was Urgent. The indicationfor the geophysical laboratory supervisor visit is ACS greater than 24 hrs [...] site angiography,vascular ultrasound and IABP insertion in geophysical laboratory supervisor. Nuha Shen M.D. Electronically Signed by: Nuha [...] CHEMISTRY ORDERABLES [facility] [place] [address] * POC, GLUCOSE (06/13/2024 7:41 AM EST) Glucometer, POC 126 65 - 199 mg/dL 06/13/2024 7:41 AM EST [facility] Comment:Supplemental ranges: <140 mg/dL before meals <180 mg/dL all other times of the day. Blood CAPILLARY BLOOD / Unknown 06/13/2024 7:41 AM EST 06/13/2024 7:41 AM EST Ethel Carrillo MD POINT OF CARE TEST O NIKA Performing Organization Address [facility]/ZIP Co de Phone Number [facility] [place] [address] * POC, GLUCOSE (06/13/2024 3:25 AM EST) Glucometer, POC 99 65 - 199 mg/dL 06/13/2024 3:25 AM EST [facility] Comment:Supplemental ranges: <140 mg/dL before meals <180 mg/dL all other times of the day. Blood CAPILLARY BLOOD / Unknown 06/13/2024 3:25 AM EST 06/13/2024 3:25 AM EST Ethel Carrillo MD POINT OF CARE TEST Abimael MAHER Performing Organization Address City/[facility]/ZIP Co de Phone Number [facility] [place] [address] * Heparin (unfractionated) Level (06/13/2024 2:26 AM [...] MD HEMATOLOGY ORDERABLE S Performing Organization Address City/State/[facility] Co de Phone Number [facility] [place] [address] * (ABNORMAL) CBC (with Diff) (06/13/2024 2:26 AM EST) White Blood Cell 9.98(H) 4.00 - 9.50 x10(3)/mc L 06/13/2024 2:41 AM EST [facility] Red Blood Cell 5.11 4.58 - 5.54 x10(6)/mc L 06/13/2024 2:41 AM EST [facility] Hemoglobin 15.3 13.7 - 16.5 g/dL 06/13/2024 2:41 AM [facility] Hematocrit 47.1 40.5 - 48.5 % 06/13/2024 2:41 AM [facility] Mean Cell Volume 92.2 82.9 - 93.1 fL 06/13/2024 2:41 AM [facility] Mean Cell Hemoglobin 29.9 27.5 - 32.1 pg 06/13/2024 2:41 AM [facility] Mean Cell Hemoglobin Concentration 32.5 32.0 - 35.7 g/dL 06/13/2024 2:41 AM EST [facility] Platelet 194 145 - 357 x10(3)/mc L 06/13/2024 2:41 AM [facility] Mean Platelet Volume 9.7 7.6 - 12.9 fL 06/13/2024 2:41 AM [facility] RDW Standard Deviation 47.5(H) 36.0 - 45.0 fL 06/13/2024 2:41 AM [facility] RDW coefficient of variation 13.8 11.4 - 13.8 % 06/13/2024 2:41 AM [facility] NRBC% auto 0.0 % 06/13/2024 2:41 AM [facility] NRBC Absolute <0.01 <0.01 x10(3)/mc L 06/13/2024 2:41 AM [facility] Neutrophil % 48.8 % 06/13/2024 2:41 AM [facility] Neutrophil Absolute (ANC) - Automated 4.87 1.70 - 6.10 x10(3)/mc L 06/13/2024 2:41 AM [facility] Lymph % 35.3 % 06/13/2024 2:41 AM [facility] Lymph Absolute 3.52(H) 0.90 - 3.20 x10(3)/mc L 06/13/2024 2:41 AM [facility] Monocyte % 10.1 % 06/13/2024 2:41 AM [facility] Monocyte Absolute 1.01(H) 0.30 - 0.90 x10(3)/mc L 06/13/2024 2:41 AM [facility] Eos % 4.4 % 06/13/2024 2:41 AM [facility] Eos Absolute 0.44(H) 0.00 - 0.40 x10(3)/mc L 06/13/2024 2:41 AM [facility] Basophil % 0.9 % 06/13/2024 2:41 AM [facility] Baso Absolute 0.09 0.00 - 0.10 x10(3)/mc L 06/13/2024 2:41 AM EST [facility] Immature Gran % 0.5 % 2:41 AM [facility] Immature Gran Absolute 0.05(H) 0.00 - 0.04 x10(3)/mc L 06/13/2024 2:41 AM EST [facility] Blood VENOUS BLOOD SPECIMEN / Unknown Venipuncture / Unknown 06/13/2024 2:26 AM EST 06/13/2024 2:32 AM EST Shahnaz Scanlon MD HEMATOLOGY ORDERABLE S [facility] [place] [address] * Magnesium (06/13/2024 2:26 AM EST) Magnesium 0.78 0.69 - 1.07 mMol/L 06/13/2024 2:58 AM [facility] Blood VENOUS BLOOD SPECIMEN / Unknown Venipuncture / Unknown 06/13/2024 2:26 AM EST 06/13/2024 2:31 AM EST Shahnaz Scanlon MD CHEMISTRY ORDERABLES [facility] [place] [place] [address] * (ABNORMAL) Basic Metabolic Panel (06/13/2024 2:26 AM EST) Glucose 121 65 - 199 mg/dL 06/13/2024 2:58 AM EST [facility] Comment:Glucose Concentratio n >=200 mg/dL plus symptoms is consistent with Diabetes Mellitus. Blood Urea Nitrogen 21(H) 10 - 20 mg/dL 06/13/2024 2:58 AM EST [facility] Creatinine 1.07 0.80 - 1.50 mg/dL 06/13/2024 2:58 AM [facility] Sodium 136 135 - 145 mMol/L 06/13/2024 2:58 AM [facility] Potassium 3.9 3.5 - 5.0 mMol/L 06/13/2024 2:58 AM [facility] Chloride 99 98 - 107 mMol/L 06/13/2024 2:58 AM [facility] Carbon Dioxide 27 22 - 31 mMol/L 06/13/2024 2:58 AM [facility] Anion Gap 10 5 - 15 mMol/L 06/13/2024 2:58 AM [facility] Calcium 9.7 8.5 - 10.5 mg/dL 06/13/2024 2:58 AM [facility] Est Glomerular Filtration Rate - Male 76 mL/min/1. 73 m?? 06/13/2024 2:58 AM [facility] Comment: [...] CHEMISTRY ORDERABLES [facility] [place] [address] * POC, GLUCOSE (06/12/2024 11:53 PM EST) [facility] Signature Glucometer, POC 141 65 - 199 mg/dL 06/12/2024 11:54 PM EST [facility] Comment:Supplemental ranges: <140 mg/dL before meals <180 mg/dL all other times of the day. Blood CAPILLARY BLOOD / Unknown 06/12/2024 11:53 PM EST 06/12/2024 11:54 PM EST Ethel Carrillo MD POINT OF CARE TEST O NIKA Performing Organization Address City/[facility]/ZIP Co de Phone Number [facility] [place] [address] * POC, GLUCOSE (06/12/2024 7:32 PM EST) Glucometer, POC 158 65 - 199 mg/dL 06/12/2024 7:32 PM EST [facility] Comment:Supplemental ranges: <140 mg/dL before meals <180 mg/dL all other times of the day. Blood CAPILLARY BLOOD / Unknown 06/12/2024 7:32 PM EST 06/12/2024 7:32 PM EST Ethel Carrillo MD POINT OF CARE TEST O NIKA Performing Organization Address [facility] Co de Phone Number [facility] [place] [address] * POC, GLUCOSE (06/12/2024 3:41 PM EST) Glucometer, POC 113 65 - 199 mg/dL 06/12/2024 3:41 PM EST [facility] Comment:Supplemental ranges: <140 mg/dL before meals <180 mg/dL all other times of the day. Blood CAPILLARY BLOOD / Unknown 06/12/2024 3:41 PM EST 06/12/2024 3:41 PM EST Ethel Carrillo MD POINT OF CARE TEST O NIKA Performing Organization Address City/[facility] Co de Phone Number [facility] [place] [address] * Potassium (06/12/2024 2:19 PM EST) Potassium 4.5 3.5 - 5.0 mMol/L 06/12/2024 2:45 PM EST [facility] Blood VENOUS BLOOD SPECIMEN / Unknown Venipuncture / Unknown 06/12/2024 2:19 PM EST 06/12/2024 2:23 PM EST Shahnaz Scanlon MD CHEMISTRY ORDERABLES [facility] [place] [address] * (ABNORMAL) POC, GLUCOSE (06/12/2024 11:21 AM [...] O RDERABLES [facility] [place] [address] * POC, GLUCOSE (06/12/2024 8:00 AM EST) [...] O RDERABLES [facility] [place] [address] * POC, GLUCOSE (06/12/2024 4:25 AM EST) Pathologist [facility] Glucometer, POC 132 65 - 199 mg/dL 06/12/2024 4:26 AM EST [facility] Comment:Supplemental ranges: <140 mg/dL before meals <180 mg/dL all other times of the day. Blood CAPILLARY BLOOD / Unknown 06/12/2024 4:25 AM EST 06/12/2024 4:26 AM EST Ethel Carrillo MD POINT OF CARE TEST O RDERABLES Performing Organization Address [facility] Co de Phone Number [facility] [place] [address] * Heparin (unfractionated) Level (06/12/2024 3:03 AM EST) [facility] Heparin 0.55 IU/mL 06/12/2024 3:44 AM [...] MD HEMATOLOGY ORDERABLE S Performing Organization Address [facility] Co de Phone Number [facility] [place] [address] * (ABNORMAL) CBC (with Diff) (06/12/2024 3:03 AM EST) [facility] White Blood Cell 9.69(H) 4.00 - 9.50 x10(3)/mc L 06/12/2024 3:36 AM [facility] Red Blood Cell 5.05 4.58 - 5.54 x10(6)/mc L 06/12/2024 3:36 AM [facility] Hemoglobin 15.2 13.7 - 16.5 g/dL 06/12/2024 3:36 AM [facility] Hematocrit 46.6 40.5 - 48.5 % 06/12/2024 3:36 AM [facility] Mean Cell Volume 92.3 82.9 - 93.1 fL 06/12/2024 3:36 AM [facility] Mean Cell Hemoglobin 30.1 27.5 - 32.1 pg 06/12/2024 3:36 AM [facility] Mean Cell Hemoglobin Concentration 32.6 32.0 - 35.7 g/dL 06/12/2024 3:36 AM [facility] Platelet 194 145 - 357 x10(3)/mc L 06/12/2024 3:36 AM [facility] Mean Platelet Volume 10.1 7.6 - 12.9 fL 06/12/2024 3:36 AM [facility] RDW Standard Deviation 47.7(H) 36.0 - 45.0 fL 06/12/2024 3:36 AM [facility] RDW coefficient of variation 14.0(H) 11.4 - 13.8 % 06/12/2024 3:36 AM [facility] NRBC% auto 0.0 % 06/12/2024 3:36 AM [facility] NRBC Absolute <0.01 <0.01 x10(3)/mc L 06/12/2024 3:36 AM [facility] Neutrophil % 49.9 % 06/12/2024 3:36 AM [facility] Neutrophil Absolute (ANC) - Automated 4.82 1.70 - 6.10 x10(3)/mc L 06/12/2024 3:36 AM [facility] Lymph % 33.5 % 06/12/2024 3:36 AM [facility] Lymph Absolute 3.25(H) 0.90 - 3.20 x10(3)/mc L 06/12/2024 3:36 AM [facility] Monocyte % 11.1 % 06/12/2024 3:36 AM [facility] Monocyte Absolute 1.08(H) 0.30 - 0.90 x10(3)/mc L 06/12/2024 3:36 AM [facility] Eos % 4.1 % 06/12/2024 3:36 AM [facility] Eos Absolute 0.40 0.00 - 0.40 x10(3)/mc L 06/12/2024 3:36 AM [facility] Basophil % 0.8 % 06/12/2024 3:36 AM [facility] Baso Absolute 0.08 0.00 - 0.10 x10(3)/mc L 06/12/2024 3:36 AM [facility] Immature Gran % 0.6 % 3:36 AM [facility] Immature Gran Absolute 0.06(H) 0.00 - 0.04 x10(3)/mc L 06/12/2024 3:36 AM [facility] Blood VENOUS BLOOD SPECIMEN / Unknown Venipuncture / Unknown 06/12/2024 3:03 AM EST 06/12/2024 3:30 AM EST Shahnaz Scanlon MD HEMATOLOGY ORDERABLE S [facility] [place] [address] * Magnesium (06/12/2024 3:03 AM EST) Magnesium 0.79 0.69 - 1.07 mMol/L 06/12/2024 4:01 AM [facility] Blood VENOUS BLOOD SPECIMEN / Unknown Venipuncture / Unknown 06/12/2024 3:03 AM EST 06/12/2024 3:30 AM EST Shahnaz Scanlon MD CHEMISTRY ORDERABLES [facility] [place] [address] * (ABNORMAL) Basic Metabolic Panel (06/12/2024 3:03 AM EST) Glucose 132 65 - 199 mg/dL 06/12/2024 4:01 AM [facility] Comment:Glucose Concentratio n >=200 mg/dL plus symptoms is consistent with Diabetes Mellitus. Blood Urea Nitrogen 23(H) 10 - 20 mg/dL 06/12/2024 4:01 AM [facility] Creatinine 1.15 0.80 - 1.50 mg/dL 06/12/2024 4:01 AM [facility] Sodium 138 135 - 145 mMol/L 06/12/2024 4:01 AM [facility] Potassium 3.8 3.5 - 5.0 mMol/L 06/12/2024 4:01 AM [facility] Chloride 98 98 - 107 mMol/L 06/12/2024 4:01 AM [facility] Carbon Dioxide 29 22 - 31 mMol/L 06/12/2024 4:01 AM [facility] Anion Gap 11 5 - 15 mMol/L 06/12/2024 4:01 AM [facility] Calcium 9.5 8.5 - 10.5 mg/dL 06/12/2024 4:01 AM [facility] Est Glomerular Filtration Rate - Male 70 mL/min/1. 73 m?? 06/12/2024 4:01 AM [facility] Comment: [...] Scanlon MD CHEMISTRY ORDERABLES Performing Organization Address [facility] Co de Phone Number [facility] [place] [address] * POC, GLUCOSE (06/11/2024 11:56 PM EST) Glucometer, POC 135 65 - 199 mg/dL 06/11/2024 11:56 PM EST [facility] Comment:Supplemental ranges: <140 mg/dL before meals <180 mg/dL all other times of the day. Blood CAPILLARY BLOOD / Unknown 06/11/2024 11:56 PM EST 06/11/2024 11:56 PM EST Ethel Carrillo MD POINT OF CARE TEST O RDERABLES Performing Organization Address [facility]/ZIP Co de Phone Number [facility] [place] [address] * (ABNORMAL) POC, GLUCOSE (06/11/2024 8:25 PM EST) Glucometer, POC 210(H) 65 - 199 mg/dL 06/11/2024 8:26 PM EST [facility] Comment:Supplemental ranges: <140 mg/dL before meals <180 mg/dL all other times of the day. Blood CAPILLARY BLOOD / Unknown 06/11/2024 8:25 PM EST 06/11/2024 8:26 PM EST Ethel Carrillo MD POINT OF CARE TEST O NIKA Performing Organization Address [facility] Co de Phone Number [facility] [place] [address] * POC, GLUCOSE (06/11/2024 4:24 PM EST) Glucometer, POC 81 65 - 199 mg/dL 06/11/2024 4:24 PM EST [facility] Comment:Supplemental ranges: <140 mg/dL before meals <180 mg/dL all other times of the day. Blood CAPILLARY BLOOD / Unknown 06/11/2024 4:24 PM EST 06/11/2024 4:25 PM EST Ethel Carrillo MD POINT OF CARE TEST O NIKA Performing Organization Address [facility] de Phone Number [facility] [place] [address] * (ABNORMAL) POC, GLUCOSE (06/11/2024 11:08 AM EST) Glucometer, POC 233(H) 65 - 199 mg/dL 06/11/2024 11:08 AM EST [facility] Comment:Supplemental ranges: <140 mg/dL before meals <180 mg/dL all other times of the day. Blood CAPILLARY BLOOD / Unknown 06/11/2024 11:08 AM EST 06/11/2024 11:08 AM EST Ethel Carrillo MD POINT OF CARE TEST O NIKA Performing Organization Address [facility] Co de Phone Number [facility] [place] [address] * POC, GLUCOSE (06/11/2024 7:48 AM EST) Glucometer, POC 184 65 - 199 mg/dL 06/11/2024 7:49 AM EST [facility] Comment:Supplemental ranges: <140 mg/dL before meals <180 mg/dL all other times of the day. Blood CAPILLARY BLOOD / Unknown 06/11/2024 7:48 AM EST 06/11/2024 7:49 AM EST Melida Valdes MD POINT OF CARE TEST O RDERABLES Performing Organization Address City/[facility]/ZIP Co de Phone Number [facility] [place] [address] * Heparin (unfractionated) Level (06/11/2024 5:31 AM [...] ORDERABLE S [facility] [place] [address] * POC, GLUCOSE (06/11/2024 3:57 AM EST) Glucometer, POC 132 65 - 199 mg/dL 06/11/2024 3:58 AM [facility] Comment:Supplemental ranges: <140 mg/dL before meals <180 mg/dL all other times of the day. Blood CAPILLARY BLOOD / Unknown 06/11/2024 3:57 AM EST 06/11/2024 3:58 AM EST Melida Valdes MD POINT OF CARE TEST O RDERABLES [facility] [place] [address] * (ABNORMAL) CBC (with Diff) (06/11/2024 2:13 AM EST) White Blood Cell 9.91(H) 4.00 - 9.50 x10(3)/mc L 06/11/2024 2:26 AM [facility] Red Blood Cell 5.13 4.58 - 5.54 x10(6)/mc L 06/11/2024 2:26 AM [facility] Hemoglobin 15.3 13.7 - 16.5 g/dL 06/11/2024 2:26 AM [facility] Hematocrit 47.5 40.5 - 48.5 % 06/11/2024 2:26 AM [facility] Mean Cell Volume 92.6 82.9 - 93.1 fL 06/11/2024 2:26 AM [facility] Mean Cell Hemoglobin 29.8 27.5 - 32.1 pg 06/11/2024 2:26 AM [facility] Mean Cell Hemoglobin Concentration 32.2 32.0 - 35.7 g/dL 06/11/2024 2:26 AM [facility] Platelet 184 145 - 357 x10(3)/mc L 06/11/2024 2:26 AM [facility] Mean Platelet Volume 9.7 7.6 - 12.9 fL 06/11/2024 2:26 AM [facility] RDW Standard Deviation 48.0(H) 36.0 - 45.0 fL 06/11/2024 2:26 AM [facility] RDW coefficient of variation 14.0(H) 11.4 - 13.8 % 06/11/2024 2:26 AM [facility] NRBC% auto 0.0 % 06/11/2024 2:26 AM [facility] NRBC Absolute <0.01 <0.01 x10(3)/mc L 06/11/2024 2:26 AM [facility] Neutrophil % 50.3 % 06/11/2024 2:26 AM [facility] Neutrophil Absolute (ANC) - Automated 4.98 1.70 - 6.10 x10(3)/mc L 06/11/2024 2:26 AM [facility] Lymph % 33.5 % 06/11/2024 2:26 AM [facility] Lymph Absolute 3.32(H) 0.90 - 3.20 x10(3)/mc L 06/11/2024 2:26 AM [facility] Monocyte % 10.9 % 06/11/2024 2:26 AM [facility] Monocyte Absolute 1.08(H) 0.30 - 0.90 x10(3)/mc L 06/11/2024 2:26 AM [facility] Eos % 4.1 % 06/11/2024 2:26 AM [facility] Eos Absolute 0.41(H) 0.00 - 0.40 x10(3)/mc L 06/11/2024 2:26 AM [facility] Basophil % 0.7 % 06/11/2024 2:26 AM [facility] Baso Absolute 0.07 0.00 - 0.10 x10(3)/mc L 06/11/2024 2:26 AM [facility] Immature Gran % 0.5 % 2:26 AM [facility] Immature Gran Absolute 0.05(H) 0.00 - 0.04 x10(3)/mc L 06/11/2024 2:26 AM EST [facility] Blood VENOUS BLOOD SPECIMEN / Unknown Venipuncture / Unknown 06/11/2024 2:13 AM EST 06/11/2024 2:19 AM EST Shahnaz Scanlon MD HEMATOLOGY ORDERABLE S Performing Organization Address City/[facility]/ZIP Co de Phone Number [facility] [place] [address] * Magnesium (06/11/2024 2:13 AM EST) Magnesium 0.83 0.69 - 1.07 mMol/L 06/11/2024 2:51 AM [facility] Blood VENOUS BLOOD SPECIMEN / Unknown Venipuncture / Unknown 06/11/2024 2:13 AM EST 06/11/2024 2:19 AM EST Shahnaz Scanlon MD CHEMISTRY ORDERABLES [facility] [place] [address] * (ABNORMAL) Basic Metabolic Panel (06/11/2024 2:13 AM EST) Glucose 148 65 - 199 mg/dL 06/11/2024 2:51 AM [facility] Comment:Glucose Concentratio n >=200 mg/dL plus symptoms is consistent with Diabetes Mellitus. Blood Urea Nitrogen 24(H) 10 - 20 mg/dL 06/11/2024 2:51 AM EST [facility] Creatinine 1.06 0.80 - 1.50 mg/dL 06/11/2024 2:51 AM [facility] Sodium 134(L) 135 - 145 mMol/L 06/11/2024 2:51 AM [facility] Potassium 4.1 3.5 - 5.0 mMol/L 06/11/2024 2:51 AM [facility] Chloride 96(L) 98 - 107 mMol/L 06/11/2024 2:51 AM EST [facility] Carbon Dioxide 28 22 - 31 mMol/L 06/11/2024 2:51 AM [facility] Anion Gap 10 5 - 15 mMol/L 06/11/2024 2:51 AM [facility] Calcium 9.4 8.5 - 10.5 mg/dL 06/11/2024 2:51 AM [facility] Est Glomerular Filtration Rate - Male 77 mL/min/1. 73 m?? 06/11/2024 2:51 AM [facility] Comment: [...] CHEMISTRY ORDERABLES [facility] [place] [address] * POC, GLUCOSE (06/11/2024 12:50 AM EST) [...] O NIKA [facility] [place] [address] * (ABNORMAL) POC, GLUCOSE (06/10/2024 7:22 PM EST) Glucometer, POC 236(H) 65 - 199 mg/dL 06/10/2024 7:22 PM EST [facility] Comment:Supplemental ranges: <140 mg/dL before meals <180 mg/dL all other times of the day. Blood CAPILLARY BLOOD / Unknown 06/10/2024 7:22 PM EST 06/10/2024 7:22 PM EST Melida Valdes MD POINT OF CARE TEST Abimael MAHER Performing Organization Address [facility]/ZIP Co de Phone Number [facility] [place] [address] * (ABNORMAL) Blood Gas, Venous (06/10/2024 5:42 PM EST) pH, Venous 7.34 7.32 - 7.42 06/10/2024 5:50 PM EST [facility] PCO2, Venous 52 38 - 58 mmHg 06/10/2024 5:50 PM [facility] PO2, Venous 24 16 - 65 mmHg 06/10/2024 5:50 PM [facility] Bicarbonate, Venous 27.4 22 - 31 mmol/L 06/10/2024 5:50 PM [facility] Base Excess, Venous 1.7(L) 1.9 - 4.5 mmol/L 06/10/2024 5:50 PM [facility] Hemoglobin, Venous 16.8(H) 13.7 - 16.5 g/dL 06/10/2024 5:50 PM [facility] Oxyhemoglobin, Venous 39.0 % 06/10/2024 5:50 PM [facility] Carboxyhemoglobin , Venous 0.3 % 06/10/2024 5:50 PM [facility] Comment: Nonsmokers: 0.5-1.5% COHB ?? Smokers: Variable ??but usually less than 10% ?? Toxic: 20-30% COHB ?? Lethal: Greater than 60% COHB Methemoglobin, Venous 0.5 <=1.5 % 06/10/2024 5:50 PM [facility] Sodium, Venous 137 135 - 145 mmol/L 06/10/2024 5:50 PM [facility] Chloride, Venous 96(L) 98 - 107 mmol/L 06/10/2024 5:50 PM [facility] Potassium, Venous 4.6 3.5 - 5.0 mmol/L 06/10/2024 5:50 PM [facility] Ionized Calcium, Venous 1.23 1.15 - 1.33 mmol/L 06/10/2024 5:50 PM [facility] Glucose, Venous 114 65 - 199 mg/dL 06/10/2024 5:50 PM [facility] Comment:Glucose Concentratio n >=200 mg/dL plus symptoms is consistent with Diabetes Mellitus. Lactate, Venous 1.1 0.5 - 2.2 mmol/L 06/10/2024 5:50 PM [facility] Blood Gas Source Venous 06/10/20 5:50 PM [facility] Blood VENOUS BLOOD SPECIMEN / Unknown Blood Gas Venous / Unknown 06/10/2024 5:42 PM EST 06/10/2024 5:47 PM EST Melida Valdes MD CHEMISTRY ORDERABLES [facility] [place] [address] * POC, GLUCOSE (06/10/2024 5:35 PM EST) [facility] Signature Glucometer, POC 123 65 - 199 mg/dL 06/10/2024 5:35 PM [facility] Comment:Supplemental ranges: <140 mg/dL before meals <180 mg/dL all other times of the day. Blood CAPILLARY BLOOD / Unknown 06/10/2024 5:35 PM EST 06/10/2024 5:35 PM EST Melida Valdes MD POINT OF CARE TEST O NIKA Performing Organization Address City/[facility]/ZIP Co de Phone Number [facility] [place] [address] * (ABNORMAL) POC, GLUCOSE (06/10/2024 11:25 AM EST) Glucometer, POC 216(H) 65 - 199 mg/dL 06/10/2024 11:25 AM EST [facility] Comment:Supplemental ranges: <140 mg/dL before meals <180 mg/dL all other times of the day. Blood CAPILLARY BLOOD / Unknown 06/10/2024 11:25 AM EST 06/10/2024 11:25 AM EST Melida Valdes MD POINT OF CARE TEST O NIKA Performing Organization Address [facility] Co de Phone Number [facility] [place] [address] * (ABNORMAL) POC, GLUCOSE (06/10/2024 7:46 AM EST) Glucometer, POC 206(H) 65 - 199 mg/dL 06/10/2024 7:46 AM EST [facility] Comment:Supplemental ranges: <140 mg/dL before meals <180 mg/dL all other times of the day. Blood CAPILLARY BLOOD / Unknown 06/10/2024 7:46 AM EST 06/10/2024 7:46 AM EST Melida Valdes MD POINT OF CARE TEST O NIKA Performing Organization Address City/[facility] Co de Phone Number [facility] [place] [address] * POC, GLUCOSE (06/10/2024 4:23 AM EST) Glucometer, POC 154 65 - 199 mg/dL 06/10/2024 4:24 AM [facility] Comment:Supplemental ranges: <140 mg/dL before meals <180 mg/dL all other times of the day. Blood CAPILLARY BLOOD / Unknown 06/10/2024 4:23 AM EST 06/10/2024 4:24 AM EST Melida Valdes MD POINT OF CARE TEST O RDERABLES Performing Organization Address City/State/[facility] Co de Phone Number [facility] [place] [address] * (ABNORMAL) CBC (with Diff) (06/10/2024 1:55 AM EST) White Blood Cell 9.00 4.00 - 9.50 x10(3)/mc L 06/10/2024 2:14 AM [facility] Red Blood Cell 5.03 4.58 - 5.54 x10(6)/mc L 06/10/2024 2:14 AM [facility] Hemoglobin 14.9 13.7 - 16.5 g/dL 06/10/2024 2:14 AM [facility] Hematocrit 46.4 40.5 - 48.5 % 06/10/2024 2:14 AM [facility] Mean Cell Volume 92.2 82.9 - 93.1 fL 06/10/2024 2:14 AM [facility] Mean Cell Hemoglobin 29.6 27.5 - 32.1 pg 06/10/2024 2:14 AM [facility] Mean Cell Hemoglobin Concentration 32.1 32.0 - 35.7 g/dL 06/10/2024 2:14 AM [facility] Platelet 191 145 - 357 x10(3)/mc L 06/10/2024 2:14 AM [facility] Mean Platelet Volume 9.7 7.6 - 12.9 fL 06/10/2024 2:14 AM [facility] RDW Standard Deviation 47.4(H) 36.0 - 45.0 fL 06/10/2024 2:14 AM [facility] RDW coefficient of variation 14.1(H) 11.4 - 13.8 % 06/10/2024 2:14 AM [facility] NRBC% auto 0.0 % 06/10/2024 2:14 AM [facility] NRBC Absolute <0.01 <0.01 x10(3)/mc L 06/10/2024 2:14 AM [facility] Neutrophil % 48.7 % 06/10/2024 2:14 AM [facility] Neutrophil Absolute (ANC) - Automated 4.39 1.70 - 6.10 x10(3)/mc L 06/10/2024 2:14 AM [facility] Lymph % 34.9 % 06/10/2024 2:14 AM [facility] Lymph Absolute 3.14 0.90 - 3.20 x10(3)/mc L 06/10/2024 2:14 AM [facility] Monocyte % 11.2 % 06/10/2024 2:14 AM [facility] Monocyte Absolute 1.01(H) 0.30 - 0.90 x10(3)/mc L 06/10/2024 2:14 AM [facility] Eos % 3.6 % 06/10/2024 2:14 AM [facility] Eos Absolute 0.32 0.00 - 0.40 x10(3)/mc L 06/10/2024 2:14 AM [facility] Basophil % 1.0 % 06/10/2024 2:14 AM [facility] Baso Absolute 0.09 0.00 - 0.10 x10(3)/mc L 06/10/2024 2:14 AM [facility] Immature Gran % 0.6 % 2:14 AM [facility] Immature Gran Absolute 0.05(H) 0.00 - 0.04 x10(3)/mc L 06/10/2024 2:14 AM EST [facility] Blood VENOUS BLOOD SPECIMEN / Unknown Venipuncture / Unknown 06/10/2024 1:55 AM EST 06/10/2024 2:05 AM EST Shahnaz Scanlon MD HEMATOLOGY ORDERABLE S Performing Organization Address City/[facility]/ZIP Co de Phone Number [facility] [place] [address] * Magnesium (06/10/2024 1:55 AM EST) Magnesium 0.83 0.69 - 1.07 mMol/L 06/10/2024 2:37 AM [facility] Blood VENOUS BLOOD SPECIMEN / Unknown Venipuncture / Unknown 06/10/2024 1:55 AM EST 06/10/2024 2:05 AM EST Shahnaz Scanlon MD CHEMISTRY ORDERABLES [facility] [place] [address] * (ABNORMAL) Basic Metabolic Panel (06/10/2024 1:55 AM EST) Glucose 140 65 - 199 mg/dL 06/10/2024 2:37 AM [facility] Comment:Glucose Concentratio n >=200 mg/dL plus symptoms is consistent with Diabetes Mellitus. Blood Urea Nitrogen 24(H) 10 - 20 mg/dL 06/10/2024 2:37 AM [facility] Creatinine 1.06 0.80 - 1.50 mg/dL 06/10/2024 2:37 AM [facility] Sodium 138 135 - 145 mMol/L 06/10/2024 2:37 AM [facility] Potassium 4.1 3.5 - 5.0 mMol/L 06/10/2024 2:37 AM [facility] Chloride 100 98 - 107 mMol/L 06/10/2024 2:37 AM [facility] Carbon Dioxide 25 22 - 31 mMol/L 06/10/2024 2:37 AM [facility] Anion Gap 13 5 - 15 mMol/L 06/10/2024 2:37 AM [facility] Calcium 9.5 8.5 - 10.5 mg/dL 06/10/2024 2:37 AM [facility] Est Glomerular Filtration Rate - Male 77 mL/min/1. 73 m?? 06/10/2024 2:37 AM [facility] Comment: [...] Scanlon MD CHEMISTRY ORDERABLES Performing Organization Address City/State/[facility] Co de Phone Number [facility] [place] [address] * Heparin (unfractionated) Level (06/10/2024 1:54 AM EST) UF Heparin 0.56 IU/mL 06/10/2024 2:41 AM [facility] Comment: Heparin (anti-Xa) levels should be [...] MD HEMATOLOGY ORDERABLE S Performing Organization Address City/[facility]/ZIP Co de Phone Number [facility] [place] [place] [address] * POC, GLUCOSE (06/10/2024 12:05 AM EST) Glucometer, POC 125 65 - 199 mg/dL 06/10/2024 12:05 AM EST [facility] Comment:Supplemental ranges: <140 mg/dL before meals <180 mg/dL all other times of the day. Blood CAPILLARY BLOOD / Unknown 06/10/2024 12:05 AM EST 06/10/2024 12:05 AM EST Melida Valdes MD POINT OF CARE TEST O RDERABLES Performing Organization Address City/[facility]/ZIP Co de Phone Number [facility] [place] [address] * POC, GLUCOSE (06/09/2024 8:36 PM EST) Glucometer, POC 197 65 - 199 mg/dL 06/09/2024 8:36 PM EST [facility] Comment:Supplemental ranges: <140 mg/dL before meals <180 mg/dL all other times of the day. Blood CAPILLARY BLOOD / Unknown 06/09/2024 8:36 PM EST 06/09/2024 8:36 PM EST Melida Valdes MD POINT OF CARE TEST O NIKA Performing Organization Address [facility] Co de Phone Number [facility] [place] [address] * POC, GLUCOSE (06/09/2024 5:27 PM EST) Glucometer, POC 174 65 - 199 mg/dL 06/09/2024 5:28 PM EST [facility] Comment:Supplemental ranges: <140 mg/dL before meals <180 mg/dL all other times of the day. Blood CAPILLARY BLOOD / Unknown 06/09/2024 5:27 PM EST 06/09/2024 5:28 PM EST Melida Valdes MD POINT OF CARE TEST O NIKA Performing Organization Address [facility] Co de Phone Number [facility] [place] [address] * (ABNORMAL) POC, GLUCOSE (06/09/2024 11:52 AM EST) Glucometer, POC 211(H) 65 - 199 mg/dL 06/09/2024 11:52 AM EST [facility] Comment:Supplemental ranges: <140 mg/dL before meals <180 mg/dL all other times of the day. Blood CAPILLARY BLOOD / Unknown 06/09/2024 11:52 AM EST 06/09/2024 11:52 AM EST Melida Valdes MD POINT OF CARE TEST O NIKA Performing Organization Address City/[facility] Co de Phone Number [facility] [place] [address] * Potassium (06/09/2024 8:25 AM EST) Potassium 4.6 3.5 - 5.0 mMol/L 06/09/2024 10:09 AM EST [facility] Blood VENOUS BLOOD SPECIMEN / Unknown Venipuncture / Unknown 06/09/2024 8:25 AM EST 06/09/2024 8:42 AM EST Shahnaz Scanlon MD CHEMISTRY ORDERABLES Performing Organization Address [facility] Co de Phone Number [facility] [place] [address] * (ABNORMAL) POC, GLUCOSE (06/09/2024 8:10 AM EST) Glucometer, POC 209(H) 65 - 199 mg/dL 06/09/2024 8:10 AM EST [facility] Comment:Supplemental ranges: <140 mg/dL before meals <180 mg/dL all other times of the day. Blood CAPILLARY BLOOD / Unknown 06/09/2024 8:10 AM EST 06/09/2024 8:11 AM EST Melida Valdes MD POINT OF CARE TEST O RDERABLES Performing Organization Address [facility] Co de Phone Number [facility] [place] [address] * POC, GLUCOSE (06/09/2024 4:40 AM EST) Glucometer, POC 131 65 - 199 mg/dL 06/09/2024 4:40 AM EST [facility] Comment:Supplemental ranges: <140 mg/dL before meals <180 mg/dL all other times of the day. Blood CAPILLARY BLOOD / Unknown 06/09/2024 4:40 AM EST 06/09/2024 4:41 AM EST Melida Valdes MD POINT OF CARE TEST O NIKA Performing Organization Address [facility] Co de Phone Number [facility] [place] [address] * Heparin (unfractionated) Level (06/09/2024 2:12 AM [...] MD HEMATOLOGY ORDERABLE S Performing Organization Address City/State/[facility] Co de Phone Number [facility] [place] [address] * (ABNORMAL) CBC (with Diff) (06/09/2024 2:12 AM EST) White Blood Cell 9.80(H) 4.00 - 9.50 x10(3)/mc L 06/09/2024 2:44 AM EST [facility] Red Blood Cell 5.18 4.58 - 5.54 x10(6)/mc L 06/09/2024 2:44 AM EST [facility] Hemoglobin 15.5 13.7 - 16.5 g/dL 06/09/2024 2:44 AM EST [facility] Hematocrit 47.4 40.5 - 48.5 % 06/09/2024 2:44 AM [facility] Mean Cell Volume 91.5 82.9 - 93.1 fL 06/09/2024 2:44 AM EST [facility] Mean Cell Hemoglobin 29.9 27.5 - 32.1 pg 06/09/2024 2:44 AM [facility] Mean Cell Hemoglobin Concentration 32.7 32.0 - 35.7 g/dL 06/09/2024 2:44 AM [facility] Platelet 205 145 - 357 x10(3)/mc L 06/09/2024 2:44 AM [facility] Mean Platelet Volume 9.7 7.6 - 12.9 fL 06/09/2024 2:44 AM [facility] RDW Standard Deviation 47.7(H) 36.0 - 45.0 fL 06/09/2024 2:44 AM [facility] RDW coefficient of variation 14.1(H) 11.4 - 13.8 % 06/09/2024 2:44 AM [facility] NRBC% auto 0.0 % 06/09/2024 2:44 AM [facility] NRBC Absolute <0.01 <0.01 x10(3)/mc L 06/09/2024 2:44 AM [facility] Neutrophil % 53.0 % 06/09/2024 2:44 AM [facility] Neutrophil Absolute (ANC) - Automated 5.19 1.70 - 6.10 x10(3)/mc L 06/09/2024 2:44 AM [facility] Lymph % 31.6 % 06/09/2024 2:44 AM [facility] Lymph Absolute 3.10 0.90 - 3.20 x10(3)/mc L 06/09/2024 2:44 AM [facility] Monocyte % 11.0 % 06/09/2024 2:44 AM [facility] Monocyte Absolute 1.08(H) 0.30 - 0.90 x10(3)/mc L 06/09/2024 2:44 AM [facility] Eos % 2.9 % 06/09/2024 2:44 AM [facility] Eos Absolute 0.28 0.00 - 0.40 x10(3)/mc L 06/09/2024 2:44 AM [facility] Basophil % 0.9 % 06/09/2024 2:44 AM EST [facility] Baso Absolute 0.09 0.00 - 0.10 x10(3)/mc L 06/09/2024 2:44 AM EST [facility] Immature Gran % 0.6 % 2:44 AM [facility] Immature Gran Absolute 0.06(H) 0.00 - 0.04 x10(3)/mc L 06/09/2024 2:44 AM EST [facility] Blood VENOUS BLOOD SPECIMEN / Unknown Venipuncture / Unknown 06/09/2024 2:12 AM EST 06/09/2024 2:21 AM EST Shahnaz Scanlon MD HEMATOLOGY ORDERABLE S Performing Organization Address City/[facility]/ZIP Co de Phone Number [facility] [place] [address] * Magnesium (06/09/2024 2:12 AM EST) Magnesium 0.83 0.69 - 1.07 mMol/L 06/09/2024 2:52 AM [facility] Blood VENOUS BLOOD SPECIMEN / Unknown Venipuncture / Unknown 06/09/2024 2:12 AM EST 06/09/2024 2:22 AM EST Shahnaz Scanlon MD CHEMISTRY ORDERABLES Performing Organization Address City/[facility]/ZIP Co de Phone Number [facility] [place] [address] * (ABNORMAL) Basic Metabolic Panel (06/09/2024 2:12 AM EST) Glucose 147 65 - 199 mg/dL 06/09/2024 2:52 AM [facility] Comment:Glucose Concentratio n >=200 mg/dL plus symptoms is consistent with Diabetes Mellitus. Blood Urea Nitrogen 24(H) 10 - 20 mg/dL 06/09/2024 2:52 AM EST [facility] Creatinine 1.11 0.80 - 1.50 mg/dL 06/09/2024 2:52 AM EST [facility] Sodium 136 135 - 145 mMol/L 06/09/2024 2:52 AM EST [facility] Potassium 3.9 3.5 - 5.0 mMol/L 06/09/2024 2:52 AM EST [facility] Chloride 98 98 - 107 mMol/L 06/09/2024 2:52 AM EST [facility] Carbon Dioxide 27 22 - 31 mMol/L 06/09/2024 2:52 AM EST [facility] Anion Gap 11 5 - 15 mMol/L 06/09/2024 2:52 AM EST [facility] Calcium 9.7 8.5 - 10.5 mg/dL 06/09/2024 2:52 AM EST [facility] Est Glomerular Filtration Rate - Male 73 mL/min/1. 73 m?? 06/09/2024 2:52 AM EST [facility] CHEMISTRY ORDERABLES [facility] [place] [address] * POC, GLUCOSE (06/09/2024 12:34 AM EST) Glucometer, POC 186 65 - 199 mg/dL 06/09/2024 12:34 AM EST [facility] Comment:Supplemental ranges: <140 mg/dL before meals <180 mg/dL all other times of the day. Blood CAPILLARY BLOOD / Unknown 06/09/2024 12:34 AM EST 06/09/2024 12:34 AM EST Melida Valdes MD POINT OF CARE TEST O NIKA Performing Organization Address City/[facility]/ZIP Co de Phone Number [facility] [place] [address] * POC, GLUCOSE (06/08/2024 8:27 PM EST) Glucometer, POC 176 65 - 199 mg/dL 06/08/2024 8:28 PM EST [facility] Comment:Supplemental ranges: <140 mg/dL before meals <180 mg/dL all other times of the day. Blood CAPILLARY BLOOD / Unknown 06/08/2024 8:27 PM EST 06/08/2024 8:28 PM EST Melida Valdes MD POINT OF CARE TEST O NIKA Performing Organization Address [facility] Co de Phone Number [facility] [place] [address] * POC, GLUCOSE (06/08/2024 4:16 PM EST) Glucometer, POC 159 65 - 199 mg/dL 06/08/2024 4:16 PM EST [facility] Comment:Supplemental ranges: <140 mg/dL before meals <180 mg/dL all other times of the day. Blood CAPILLARY BLOOD / Unknown 06/08/2024 4:16 PM EST 06/08/2024 4:16 PM EST Melida Valdes MD POINT OF CARE TEST O NIKA Performing Organization Address City/[facility]/ZIP Co de Phone Number [facility] [place] [address] * (ABNORMAL) POC, GLUCOSE (06/08/2024 12:35 PM EST) Glucometer, POC 226(H) 65 - 199 mg/dL 06/08/2024 12:35 PM EST [facility] Comment:Supplemental ranges: <140 mg/dL before meals <180 mg/dL all other times of the day. Blood CAPILLARY BLOOD / Unknown 06/08/2024 12:35 PM EST 06/08/2024 12:35 PM EST Melida Valdes MD POINT OF CARE TEST O RDBECKIE Performing Organization Address City/[facility]/ZIP Co de Phone Number [facility] [place] [place] [address] * POC, GLUCOSE (06/08/2024 8:10 AM EST) [...] O RDERAPIETER [facility] [place] [address] * POC, GLUCOSE (06/08/2024 4:09 AM EST) Glucometer, POC 151 65 - 199 mg/dL 06/08/2024 4:10 AM EST [facility] Comment:Supplemental ranges: <140 mg/dL before meals <180 mg/dL all other times of the day. Blood CAPILLARY BLOOD / Unknown 06/08/2024 4:09 AM EST 06/08/2024 4:10 AM EST Meldia Valdes MD POINT OF CARE TEST O RDERABLES Performing Organization Address [facility]/ZIP Co de Phone Number [facility] [place] [address] * Heparin (unfractionated) Level (06/08/2024 3:21 AM [...] MD HEMATOLOGY ORDERABLE S Performing Organization Address City/[facility]/ZIP Co de Phone Number [facility] [place] [address] * (ABNORMAL) CBC (with Diff) (06/08/2024 3:21 AM EST) White Blood Cell 9.92(H) 4.00 - 9.50 x10(3)/mc L 06/08/2024 3:34 AM EST [facility] Red Blood Cell 5.09 4.58 - 5.54 x10(6)/mc L 06/08/2024 3:34 AM EST [facility] Hemoglobin 15.1 13.7 - 16.5 g/dL 06/08/2024 3:34 AM [facility] Hematocrit 46.7 40.5 - 48.5 % 06/08/2024 3:34 AM [facility] Mean Cell Volume 91.7 82.9 - 93.1 fL 06/08/2024 3:34 AM [facility] Mean Cell Hemoglobin 29.7 27.5 - 32.1 pg 06/08/2024 3:34 AM [facility] Mean Cell Hemoglobin Concentration 32.3 32.0 - 35.7 g/dL 06/08/2024 3:34 AM [facility] Platelet 203 145 - 357 x10(3)/mc L 06/08/2024 3:34 AM [facility] Mean Platelet Volume 9.4 7.6 - 12.9 fL 06/08/2024 3:34 AM [facility] RDW Standard Deviation 46.9(H) 36.0 - 45.0 fL 06/08/2024 3:34 AM [facility] RDW coefficient of variation 13.8 11.4 - 13.8 % 06/08/2024 3:34 AM [facility] NRBC% auto 0.0 % 06/08/2024 3:34 AM [facility] NRBC Absolute <0.01 <0.01 x10(3)/mc L 06/08/2024 3:34 AM [facility] Neutrophil % 56.8 % 06/08/2024 3:34 AM [facility] Neutrophil Absolute (ANC) - Automated 5.63 1.70 - 6.10 x10(3)/mc L 06/08/2024 3:34 AM [facility] Lymph % 27.3 % 06/08/2024 3:34 AM [facility] Lymph Absolute 2.71 0.90 - 3.20 x10(3)/mc L 06/08/2024 3:34 AM [facility] Monocyte % 11.2 % 06/08/2024 3:34 AM [facility] Monocyte Absolute 1.11(H) 0.30 - 0.90 x10(3)/mc L 06/08/2024 3:34 AM [facility] Eos % 3.4 % 06/08/2024 3:34 AM [facility] Eos Absolute 0.34 0.00 - 0.40 x10(3)/mc L 06/08/2024 3:34 AM [facility] Basophil % 0.8 % 06/08/2024 3:34 AM [facility] Baso Absolute 0.08 0.00 - 0.10 x10(3)/mc L 06/08/2024 3:34 AM [facility] Immature Gran % 0.5 % 3:34 AM [facility] Immature Gran Absolute 0.05(H) 0.00 - 0.04 x10(3)/mc L 06/08/2024 3:34 AM [facility] Blood VENOUS BLOOD SPECIMEN / Unknown Venipuncture / Unknown 06/08/2024 3:21 AM EST 06/08/2024 3:27 AM EST Shahnaz Scanlon MD [place] [address] * Magnesium (06/08/2024 3:21 AM EST) Magnesium 0.84 0.69 - 1.07 mMol/L 06/08/2024 3:59 AM [facility] Blood VENOUS BLOOD SPECIMEN / Unknown Venipuncture / Unknown 06/08/2024 3:21 AM EST 06/08/2024 3:27 AM EST Shahnaz Scanlon MD CHEMISTRY ORDERABLES [facility] [place] [address] * (ABNORMAL) Basic Metabolic Panel (06/08/2024 3:21 AM EST) Glucose 173 65 - 199 mg/dL 06/08/2024 3:59 AM [facility] Comment:Glucose Concentratio n >=200 mg/dL plus symptoms is consistent with Diabetes Mellitus. Blood Urea Nitrogen 25(H) 10 - 20 mg/dL 06/08/2024 3:59 AM [facility] Creatinine 1.09 0.80 - 1.50 mg/dL 06/08/2024 3:59 AM [facility] Sodium 135 135 - 145 mMol/L 06/08/2024 3:59 AM [facility] Potassium 4.2 3.5 - 5.0 mMol/L 06/08/2024 3:59 AM [facility] Chloride 98 98 - 107 mMol/L 06/08/2024 3:59 AM [facility] Carbon Dioxide 25 22 - 31 mMol/L 06/08/2024 3:59 AM [facility] Anion Gap 12 5 - 15 mMol/L 06/08/2024 3:59 AM [facility] Calcium 9.4 8.5 - 10.5 mg/dL 06/08/2024 3:59 AM [facility] Est Glomerular Filtration Rate - Male 74 mL/min/1. 73 m?? 06/08/2024 3:59 AM [facility] Comment: [...] Scanlon MD CHEMISTRY ORDERABLES Performing Organization Address [facility]/ZIP Co de Phone Number [facility] [place] [address] * POC, GLUCOSE (06/07/2024 11:57 PM EST) Glucometer, POC 188 65 - 199 mg/dL 06/07/2024 11:57 PM EST [facility] Comment:Supplemental ranges: <140 mg/dL before meals <180 mg/dL all other times of the day. Blood CAPILLARY BLOOD / Unknown 06/07/2024 11:57 PM EST 06/07/2024 11:58 PM EST Melida Valdes MD POINT OF CARE TEST O NIKA Performing Organization Address [facility] Co de Phone Number [facility] [place] [address] * POC, GLUCOSE (06/07/2024 8:05 PM EST) Glucometer, POC 118 65 - 199 mg/dL 06/07/2024 8:06 PM EST [facility] Comment:Supplemental ranges: <140 mg/dL before meals <180 mg/dL all other times of the day. Blood CAPILLARY BLOOD / Unknown 06/07/2024 8:05 PM EST 06/07/2024 8:06 PM EST Melida Valdes MD POINT OF CARE TEST O NIKA Performing Organization Address City/[facility]/ZIP Co de Phone Number [facility] [place] [address] * Potassium (06/07/2024 5:22 PM EST) Potassium 4.6 3.5 - 5.0 mMol/L 06/07/2024 5:59 PM EST [facility] Blood VENOUS BLOOD SPECIMEN / Unknown Venipuncture / Unknown 06/07/2024 5:22 PM EST 06/07/2024 5:26 PM EST Shahnaz Scanlon MD CHEMISTRY ORDERABLES Performing Organization Address [facility] Co de Phone Number [facility] [place] [address] * POC, GLUCOSE (06/07/2024 4:31 PM EST) Glucometer, POC 174 65 - 199 mg/dL 06/07/2024 4:34 PM EST [facility] Comment:Supplemental ranges: <140 mg/dL before meals <180 mg/dL all other times of the day. Blood CAPILLARY BLOOD / Unknown 06/07/2024 4:31 PM EST 06/07/2024 4:34 PM EST Melida Valdes MD POINT OF CARE TEST O RDERABLES Performing Organization Address [facility] Co de Phone Number [facility] [place] [address] * MRI Cardiac Morphology Function wwo Contrast (06/07/2024 1:10 PM EST) WORKSTATION ID [id number] DH RAD Anatomical Region Laterality Modality Magnetic [...] - Mildly dilated left ventricle size with aabgakgh-ex-pvnwszuw decreased LV systolic function. ??LV ejection fraction [...] have questions please contact the health manager critical care unit that requested your imaging first. ? Electronically signed by: Kriss Alonzo MD, [facility] ([phone]), at 06/07/2024 2:41 PM Narrative 06/07/2024 2:41 [...] VENTRICLE: Mildly dilated left ventricle size with duphzmwf-dc-eddjwokg decreased LV systolic function. ??LV ejection fraction [...] VENTRICLE: Mildly dilated left ventricle size with ogypwntw-hm-jfbphsly decreasedLV systolic function. LV ejection fraction is [...] - Mildly dilated left ventricle size with pjqalshw-cq-qvvviowz decreasedLV systolic function. LV ejection fraction is [...] who have questions please contactthe health manager critical care unit that requested your imaging first. Delroy Fofana [...] CARE TEST O NIKA Performing Organization Address City/[facility] Co de Phone Number [facility] [place] [address] * (ABNORMAL) POC, GLUCOSE (06/07/2024 11:03 AM EST) [facility] Signature Glucometer, POC 250(H) 65 - 199 mg/dL 06/07/2024 11:04 AM EST [facility] Comment:Supplemental ranges: <140 mg/dL before meals <180 mg/dL all other times of the day. Blood CAPILLARY BLOOD / Unknown 06/07/2024 11:03 AM EST 06/07/2024 11:04 AM EST Melida Valdes MD POINT OF CARE TEST O NIKA [facility] [place] [address] * Potassium (06/07/2024 9:44 AM EST) [facility] Signature Potassium 4.7 3.5 - 5.0 mMol/L 06/07/2024 10:23 AM EST [facility] Blood VENOUS BLOOD SPECIMEN / Unknown Venipuncture / Unknown 06/07/2024 9:44 AM EST 06/07/2024 9:57 AM EST Shahnaz Scanlon MD CHEMISTRY ORDERABLES Performing Organization Address [facility]/ZIP Co de Phone Number [facility] [place] [address] * POC, GLUCOSE (06/07/2024 7:45 AM EST) Glucometer, POC 175 65 - 199 mg/dL 06/07/2024 7:45 AM EST [facility] Comment:Supplemental ranges: <140 mg/dL before meals <180 mg/dL all other times of the day. Blood CAPILLARY BLOOD / Unknown 06/07/2024 7:45 AM EST 06/07/2024 7:46 AM EST Melida Valdes MD POINT OF CARE TEST O RDERABLES Performing Organization Address [facility] Co de Phone Number [facility] [place] [address] * XR Chest PA & Lateral (Generic) (06/07/2024 7:03 AM EST) WORKSTATION ID [id number] RAD Anatomical Region Laterality Modality Chest N/A [...] have questions please contact the health manager critical care unit that requested your imaging first. ? Electronically signed by: Stuart Aponte MD, [facility] ??([phone]), at 06/07/2024 10:45 AM Narrative 06/07/2024 10:45 [...] who have questions please contactthe health manager critical care unit that requested your imaging first. Electronically signed by: Stuart Aponte MD, [facility]([phone]), at 06/07/2024 10:45 AM Shahnaz Scanlon MD [...] CARE TEST O RDERABLES Performing Organization Address [facility] Co de Phone Number [facility] [place] [address] * Heparin (unfractionated) Level (06/07/2024 2:41 AM EST) Pathologist [facility] UF Heparin 0.45 IU/mL 06/07/2024 3:03 AM [...] MD HEMATOLOGY ORDERABLE S Performing Organization Address City/[facility]/ZIP Co de Phone Number [facility] [place] [address] * (ABNORMAL) CBC (with Diff) (06/07/2024 2:41 AM EST) [facility] White Blood Cell 10.06(H) 4.00 - 9.50 x10(3)/mc L 06/07/2024 2:58 AM [facility] Red Blood Cell 5.02 4.58 - 5.54 x10(6)/mc L 06/07/2024 2:58 AM [facility] Hemoglobin 14.8 13.7 - 16.5 g/dL 06/07/2024 2:58 AM [facility] Hematocrit 46.2 40.5 - 48.5 % 06/07/2024 2:58 AM [facility] Mean Cell Volume 92.0 82.9 - 93.1 fL 06/07/2024 2:58 AM [facility] Mean Cell Hemoglobin 29.5 27.5 - 32.1 pg 06/07/2024 2:58 AM [facility] Mean Cell Hemoglobin Concentration 32.0 32.0 - 35.7 g/dL 06/07/2024 2:58 AM [facility] Platelet 202 145 - 357 x10(3)/mc L 06/07/2024 2:58 AM [facility] Mean Platelet Volume 9.6 7.6 - 12.9 fL 06/07/2024 2:58 AM [facility] RDW Standard Deviation 46.3(H) 36.0 - 45.0 fL 06/07/2024 2:58 AM [facility] RDW coefficient of variation 13.8 11.4 - 13.8 % 06/07/2024 2:58 AM [facility] NRBC% auto 0.0 % 06/07/2024 2:58 AM [facility] NRBC Absolute <0.01 <0.01 x10(3)/mc L 06/07/2024 2:58 AM [facility] Neutrophil % 55.9 % 06/07/2024 2:58 AM [facility] Neutrophil Absolute (ANC) - Automated 5.62 1.70 - 6.10 x10(3)/mc L 06/07/2024 2:58 AM [facility] Lymph % 28.3 % 06/07/2024 2:58 AM [facility] Lymph Absolute 2.85 0.90 - 3.20 x10(3)/mc L 06/07/2024 2:58 AM [facility] Monocyte % 10.8 % 06/07/2024 2:58 AM [facility] Monocyte Absolute 1.09(H) 0.30 - 0.90 x10(3)/mc L 06/07/2024 2:58 AM [facility] Eos % 3.6 % 06/07/2024 2:58 AM [facility] Eos Absolute 0.36 0.00 - 0.40 x10(3)/mc L 06/07/2024 2:58 AM EST [facility] Basophil % 0.8 % 06/07/2024 2:58 AM [facility] Baso Absolute 0.08 0.00 - 0.10 x10(3)/mc L 06/07/2024 2:58 AM [facility] Immature Gran % 0.6 % 2:58 AM [facility] Immature Gran Absolute 0.06(H) 0.00 - 0.04 x10(3)/mc L 06/07/2024 2:58 AM [facility] Blood VENOUS BLOOD SPECIMEN / Unknown Venipuncture / Unknown 06/07/2024 2:41 AM EST 06/07/2024 2:52 AM EST Shahnaz Scanlon MD HEMATOLOGY ORDERABLE S [facility] [place] [address] * Magnesium (06/07/2024 2:41 AM EST) Magnesium 0.92 0.69 - 1.07 mMol/L 06/07/2024 3:25 AM EST [facility] Blood VENOUS BLOOD SPECIMEN / Unknown Venipuncture / Unknown 06/07/2024 2:41 AM EST 06/07/2024 2:51 AM EST Shahnaz Scanlon MD CHEMISTRY ORDERABLES [facility] [place] [address] * (ABNORMAL) Basic Metabolic Panel (06/07/2024 2:41 AM EST) Glucose 140 65 - 199 mg/dL 06/07/2024 3:25 AM [facility] Comment:Glucose Concentratio n >=200 mg/dL plus symptoms is consistent with Diabetes Mellitus. Blood Urea Nitrogen 26(H) 10 - 20 mg/dL 06/07/2024 3:25 AM [facility] Creatinine 1.06 0.80 - 1.50 mg/dL 06/07/2024 3:25 AM [facility] Sodium 136 135 - 145 mMol/L 06/07/2024 3:25 AM [facility] Potassium 3.8 3.5 - 5.0 mMol/L 06/07/2024 3:25 AM [facility] Chloride 98 98 - 107 mMol/L 06/07/2024 3:25 AM [facility] Carbon Dioxide 28 22 - 31 mMol/L 06/07/2024 3:25 AM [facility] Anion Gap 10 5 - 15 mMol/L 06/07/2024 3:25 AM [facility] Calcium 9.4 8.5 - 10.5 mg/dL 06/07/2024 3:25 AM [facility] Est Glomerular Filtration Rate - Male 77 mL/min/1. 73 m?? 06/07/2024 3:25 AM [facility] Comment: [...] Scanlon MD CHEMISTRY ORDERABLES Performing Organization Address [facility] Co de Phone Number [facility] [place] [address] * POC, GLUCOSE (06/07/2024 12:08 AM EST) Glucometer, POC 182 65 - 199 mg/dL 06/07/2024 12:09 AM EST [facility] Comment:Supplemental ranges: <140 mg/dL before meals <180 mg/dL all other times of the day. Blood CAPILLARY BLOOD / Unknown 06/07/2024 12:08 AM EST 06/07/2024 12:09 AM EST Melida Valdes MD POINT OF CARE TEST O RDERABLES Performing Organization Address City/[facility]/ZIP Co de Phone Number [facility] [place] [address] * POC, GLUCOSE (06/06/2024 8:18 PM EST) Glucometer, POC 143 65 - 199 mg/dL 06/06/2024 8:19 PM EST [facility] Comment:Supplemental ranges: <140 mg/dL before meals <180 mg/dL all other times of the day. Blood CAPILLARY BLOOD / Unknown 06/06/2024 8:18 PM EST 06/06/2024 8:19 PM EST Melida Valdes MD POINT OF CARE TEST O NIKA Performing Organization Address [facility] Co de Phone Number [facility] [place] [address] * POC, GLUCOSE (06/06/2024 3:39 PM EST) Glucometer, POC 147 65 - 199 mg/dL 06/06/2024 3:40 PM EST [facility] Comment:Supplemental ranges: <140 mg/dL before meals <180 mg/dL all other times of the day. Blood CAPILLARY BLOOD / Unknown 06/06/2024 3:39 PM EST 06/06/2024 3:40 PM EST Melida Valdes MD POINT OF CARE TEST Abimael MAHER Performing Organization Address [facility] de Phone Number [facility] [place] [address] * Potassium (06/06/2024 2:37 PM EST) Potassium 4.3 3.5 - 5.0 mMol/L 06/06/2024 3:01 PM EST [facility] Blood VENOUS BLOOD SPECIMEN / Unknown Venipuncture / Unknown 06/06/2024 2:37 PM EST 06/06/2024 2:42 PM EST Shahnaz Scanlon MD CHEMISTRY ORDERABLES Performing Organization Address [facility] Co de Phone Number [facility] [place] [address] * (ABNORMAL) POC, GLUCOSE (06/06/2024 1:39 PM [...] O NIKA [facility] [place] [address] * (ABNORMAL) POC, GLUCOSE (06/06/2024 11:34 AM EST) Glucometer, POC 264(H) 65 - 199 mg/dL 06/06/2024 11:35 AM EST [facility] Comment:Supplemental ranges: <140 mg/dL before meals <180 mg/dL all other times of the day. Blood CAPILLARY BLOOD / Unknown 06/06/2024 11:34 AM EST 06/06/2024 11:35 AM EST Melida Valdes MD POINT OF CARE TEST Abimael MAHER Performing Organization Address City/[facility]/ZIP Co de Phone Number [facility] [place] [address] * Potassium (06/06/2024 10:17 AM EST) Potassium 4.3 3.5 - 5.0 mMol/L 06/06/2024 10:46 AM EST [facility] Blood VENOUS BLOOD SPECIMEN / Unknown Venipuncture / Unknown 06/06/2024 10:17 AM EST 06/06/2024 10:22 AM EST Shahnaz Scanlon MD CHEMISTRY ORDERABLES [facility] [place] [address] * POC, GLUCOSE (06/06/2024 7:57 AM EST) Glucometer, POC 195 65 - 199 mg/dL 06/06/2024 8:03 AM EST [facility] Comment:Supplemental ranges: <140 mg/dL before meals <180 mg/dL all other times of the day. Blood CAPILLARY BLOOD / Unknown 06/06/2024 7:57 AM EST 06/06/2024 8:03 AM EST Melida Valdes MD POINT OF CARE TEST O NIKA Performing Organization Address [facility] Co de Phone Number [facility] [place] [address] * POC, GLUCOSE (06/06/2024 6:53 AM EST) Glucometer, POC 187 65 - 199 mg/dL 06/06/2024 6:53 AM EST [facility] Comment:Supplemental ranges: <140 mg/dL before meals <180 mg/dL all other times of the day. Blood CAPILLARY BLOOD / Unknown 06/06/2024 6:53 AM EST 06/06/2024 6:54 AM EST Melida Valdes MD POINT OF CARE TEST Abimael MAHER Performing Organization Address [facility] Co de Phone Number [facility] [place] [address] * (ABNORMAL) Hemoglobin A1c (06/06/2024 3:33 AM [...] red blood cell turnover may not be associate financial representative of glycemic control. Reference Interval: 4.3 - 5.6% 5.7 - 6.4%: Consistent with prediabetes >=6.5%: Consistent with diagnosis of diabetes mellitus Estimated Average Glucose 157 mg/dL 06/06/2024 1:01 PM EST [facility] Blood VENOUS BLOOD SPECIMEN / Unknown Venipuncture / Unknown 06/06/2024 3:33 AM EST 06/06/2024 3:48 AM EST Alejandra Baumann APRN CHEMISTRY ORDERAB LES Performing Organization Address [facility]/ZIP Co de Phone Number [facility] [place] [address] * Heparin (unfractionated) Level (06/06/2024 3:33 AM [...] MD HEMATOLOGY ORDERABLE S Performing Organization Address City/[facility]/ZIP Co de Phone Number [facility] [place] [address] * (ABNORMAL) CBC (with Diff) (06/06/2024 3:33 AM EST) White Blood Cell 9.81(H) 4.00 - 9.50 x10(3)/mc L 06/06/2024 3:54 AM [facility] Red Blood Cell 4.91 4.58 - 5.54 x10(6)/mc L 06/06/2024 3:54 AM [facility] Hemoglobin 14.6 13.7 - 16.5 g/dL 06/06/2024 3:54 AM [facility] Hematocrit 45.4 40.5 - 48.5 % 06/06/2024 3:54 AM [facility] Mean Cell Volume 92.5 82.9 - 93.1 fL 06/06/2024 3:54 AM [facility] Mean Cell Hemoglobin 29.7 27.5 - 32.1 pg 06/06/2024 3:54 AM [facility] Mean Cell Hemoglobin Concentration 32.2 32.0 - 35.7 g/dL 06/06/2024 3:54 AM [facility] Platelet 199 145 - 357 x10(3)/mc L 06/06/2024 3:54 AM [facility] Mean Platelet Volume 9.5 7.6 - 12.9 fL 06/06/2024 3:54 AM [facility] RDW Standard Deviation 47.2(H) 36.0 - 45.0 fL 06/06/2024 3:54 AM [facility] RDW coefficient of variation 13.9(H) 11.4 - 13.8 % 06/06/2024 3:54 AM [facility] NRBC% auto 0.0 % 06/06/2024 3:54 AM [facility] NRBC Absolute <0.01 <0.01 x10(3)/mc L 06/06/2024 3:54 AM [facility] Neutrophil % 56.8 % 06/06/2024 3:54 AM [facility] Neutrophil Absolute (ANC) - Automated 5.57 1.70 - 6.10 x10(3)/mc L 06/06/2024 3:54 AM [facility] Lymph % 27.6 % 06/06/2024 3:54 AM [facility] Lymph Absolute 2.71 0.90 - 3.20 x10(3)/mc L 06/06/2024 3:54 AM [facility] Monocyte % 11.1 % 06/06/2024 3:54 AM [facility] Monocyte Absolute 1.09(H) 0.30 - 0.90 x10(3)/mc L 06/06/2024 3:54 AM [facility] Eos % 3.0 % 06/06/2024 3:54 AM [facility] Eos Absolute 0.29 0.00 - 0.40 x10(3)/mc L 06/06/2024 3:54 AM [facility] Basophil % 0.9 % 06/06/2024 3:54 AM [facility] Baso Absolute 0.09 0.00 - 0.10 x10(3)/mc L 06/06/2024 3:54 AM [facility] Immature Gran % 0.6 % 3:54 AM [facility] Immature Gran Absolute 0.06(H) 0.00 - 0.04 x10(3)/mc L 06/06/2024 3:54 AM [facility] Blood VENOUS BLOOD SPECIMEN / Unknown Venipuncture / Unknown 06/06/2024 3:33 AM EST 06/06/2024 3:48 AM EST Shahnaz Scanlon MD HEMATOLOGY ORDERABLE S [facility] [place] [address] * Magnesium (06/06/2024 3:33 AM EST) Magnesium 0.92 0.69 - 1.07 mMol/L 06/06/2024 4:17 AM [facility] Blood VENOUS BLOOD SPECIMEN / Unknown Venipuncture / Unknown 06/06/2024 3:33 AM EST 06/06/2024 3:47 AM EST Shahnaz Scanlon MD CHEMISTRY ORDERABLES [facility] [place] [address] * (ABNORMAL) Basic Metabolic Panel (06/06/2024 3:33 AM EST) Glucose 190 65 - 199 mg/dL 06/06/2024 4:17 AM [facility] Comment:Glucose Concentratio n >=200 mg/dL plus symptoms is consistent with Diabetes Mellitus. Blood Urea Nitrogen 27(H) 10 - 20 mg/dL 06/06/2024 4:17 AM [facility] Creatinine 1.12 0.80 - 1.50 mg/dL 06/06/2024 4:17 AM [facility] Sodium 136 135 - 145 mMol/L 06/06/2024 4:17 AM [facility] Potassium 4.0 3.5 - 5.0 mMol/L 06/06/2024 4:17 AM [facility] Chloride 97(L) 98 - 107 mMol/L 06/06/2024 4:17 AM [facility] Carbon Dioxide 26 22 - 31 mMol/L 06/06/2024 4:17 AM [facility] Anion Gap 13 5 - 15 mMol/L 06/06/2024 4:17 AM [facility] Calcium 9.1 8.5 - 10.5 mg/dL 06/06/2024 4:17 AM [facility] Est Glomerular Filtration Rate - Male 72 mL/min/1. 73 m?? 06/06/2024 4:17 AM [facility] Comment: [...] Scanlon MD CHEMISTRY ORDERABLES Performing Organization Address [facility] Co de Phone Number [facility] [place] [address] * (ABNORMAL) POC, GLUCOSE (06/05/2024 10:31 PM EDT) Glucometer, POC 238(H) 65 - 199 mg/dL 06/05/2024 10:31 PM EDT [facility] Comment:Supplemental ranges: <140 mg/dL before meals <180 mg/dL all other times of the day. Blood CAPILLARY BLOOD / Unknown 06/05/2024 10:31 PM EDT 06/05/2024 10:31 PM EDT Melida Valdes MD POINT OF CARE TEST O RDERABLES Performing Organization Address City/[facility]/ZIP Co de Phone Number [facility] [place] [address] * (ABNORMAL) POC, GLUCOSE (06/05/2024 4:22 PM [...] O RDERABLES [facility] [place] [address] * (ABNORMAL) POC, GLUCOSE (06/05/2024 11:34 AM EDT) Glucometer, POC 211(H) 65 - 199 mg/dL 06/05/2024 11:34 AM EDT [facility] Comment:Supplemental ranges: <140 mg/dL before meals <180 mg/dL all other times of the day. Blood CAPILLARY BLOOD / Unknown 06/05/2024 11:34 AM EDT 06/05/2024 11:34 AM EDT Melida Valdes MD POINT OF CARE TEST O RDERABLES Performing Organization Address City/[facility]/ZIP Co de Phone Number [facility] [place] [address] * Potassium (06/05/2024 9:04 AM EDT) Potassium 4.3 3.5 - 5.0 mMol/L 06/05/2024 9:50 AM EDT [facility] Blood VENOUS BLOOD SPECIMEN / Unknown Venipuncture / Unknown 06/05/2024 9:04 AM EDT 06/05/2024 9:21 AM EDT Shahnaz Scanlon MD CHEMISTRY ORDERABLES [facility] [place] [address] * POC, GLUCOSE (06/05/2024 7:27 AM EDT) Glucometer, POC 166 65 - 199 mg/dL 06/05/2024 7:27 AM EDT [facility] Comment:Supplemental ranges: <140 mg/dL before meals <180 mg/dL all other times of the day. Blood CAPILLARY BLOOD / Unknown 06/05/2024 7:27 AM EDT 06/05/2024 7:27 AM EDT eMlida Valdes MD POINT OF CARE TEST O RDERABLES Performing Organization Address [facility] Co de Phone Number [facility] [place] [address] * Heparin (unfractionated) Level (06/05/2024 3:44 AM [...] MD HEMATOLOGY ORDERABLE S Performing Organization Address City/[facility]/ZIP Co de Phone Number [facility] [place] [address] * (ABNORMAL) CBC (with Diff) (06/05/2024 3:44 AM EDT) White Blood Cell 10.83(H) 4.00 - 9.50 x10(3)/mc L 06/05/2024 3:56 AM EDT [facility] Red Blood Cell 5.07 4.58 - 5.54 x10(6)/mc L 06/05/2024 3:56 AM [facility] Hemoglobin 15.3 13.7 - 16.5 g/dL 06/05/2024 3:56 AM [facility] Hematocrit 46.8 40.5 - 48.5 % 06/05/2024 3:56 AM [facility] Mean Cell Volume 92.3 82.9 [...] ORDERABLE S [facility] [place] [address] * Magnesium (06/05/2024 3:44 AM EDT) Magnesium 0.92 0.69 - 1.07 mMol/L 06/05/2024 4:20 AM EDT [facility] Blood VENOUS BLOOD SPECIMEN / Unknown Venipuncture / Unknown 06/05/2024 3:44 AM EDT 06/05/2024 3:50 AM EDT Shahnaz Scanlon MD CHEMISTRY ORDERABLES [facility] [place] [address] * (ABNORMAL) Basic Metabolic Panel (06/05/2024 3:44 AM EDT) Glucose 155 65 - 199 mg/dL 06/05/2024 4:20 AM EDT [facility] Scanlon MD CHEMISTRY ORDERABLES Performing Organization Address [facility]/ZIP Co de Phone Number [facility] [place] [address] * Potassium (06/04/2024 10:34 PM EDT) Potassium 3.7 3.5 - 5.0 mMol/L 06/04/2024 11:03 PM EDT [facility] Blood VENOUS BLOOD SPECIMEN / Unknown Venipuncture / Unknown 06/04/2024 10:34 PM EDT 06/04/2024 10:39 PM EDT Shahnaz Scanlon MD CHEMISTRY ORDERABLES Performing Organization Address [facility] Co de Phone Number [facility] [place] [address] * POC, GLUCOSE (06/04/2024 7:43 PM EDT) Glucometer, POC 175 65 - 199 mg/dL 06/04/2024 7:43 PM EDT [facility] Comment:Supplemental ranges: <140 mg/dL before meals <180 mg/dL all other times of the day. Blood CAPILLARY BLOOD / Unknown 06/04/2024 7:43 PM EDT 06/04/2024 7:43 PM EDT Melida Valdes MD POINT OF CARE TEST O RDERABLES Performing Organization Address City/State/[facility] Co de Phone Number [facility] [place] [address] * Potassium (06/04/2024 4:35 PM EDT) Potassium 4.0 3.5 - 5.0 mMol/L 06/04/2024 5:32 PM EDT [facility] Blood VENOUS BLOOD SPECIMEN / Unknown Venipuncture / Unknown 06/04/2024 4:35 PM EDT 06/04/2024 4:40 PM EDT Shahnaz Scanlon MD CHEMISTRY ORDERABLES Performing Organization Address [facility] Co de Phone Number [facility] [place] [address] * POC, GLUCOSE (06/04/2024 3:26 PM EDT) Glucometer, POC 154 65 - 199 mg/dL 06/04/2024 3:26 PM EDT [facility] Comment:Supplemental ranges: <140 mg/dL before meals <180 mg/dL all other times of the day. Blood CAPILLARY BLOOD / Unknown 06/04/2024 3:26 PM EDT 06/04/2024 3:27 PM EDT Melida Valdes MD POINT OF CARE TEST O RDERABLES Performing Organization Address [facility] Co de Phone Number [facility] [place] [address] * POC, GLUCOSE (06/04/2024 11:09 AM EDT) Glucometer, POC 188 65 - 199 mg/dL 06/04/2024 11:09 AM EDT [facility] Comment:Supplemental ranges: <140 mg/dL before meals <180 mg/dL all other times of the day. Blood CAPILLARY BLOOD / Unknown 06/04/2024 11:09 AM EDT 06/04/2024 11:09 AM EDT Delroy Fofana MD POINT OF CARE TEST ORDERABLES Performing Organization Address [facility] Co de Phone Number [facility] [place] [address] * Heparin (unfractionated) Level (06/04/2024 10:41 AM [...] ORDERABLE S [facility] [place] [address] * Potassium (06/04/2024 10:41 AM EDT) Potassium 4.0 3.5 - 5.0 mMol/L 06/04/2024 11:11 AM EDT [facility] Blood VENOUS BLOOD SPECIMEN / Unknown Venipuncture / Unknown 06/04/2024 10:41 AM EDT 06/04/2024 10:46 AM EDT Shahnaz Scanlon MD CHEMISTRY ORDERABLES Performing Organization Address City/[facility]/ZIP Co de Phone Number [facility] [place] [address] * POC, GLUCOSE (06/04/2024 7:11 AM EDT) Glucometer, POC 182 65 - 199 mg/dL 06/04/2024 7:12 AM EDT [facility] Comment:Supplemental ranges: <140 mg/dL before meals <180 mg/dL all other times of the day. Blood CAPILLARY BLOOD / Unknown 06/04/2024 7:11 AM EDT 06/04/2024 7:12 AM EDT Delroy Fofana MD POINT OF CARE TEST ORDERABLES Performing Organization Address [facility] Co de Phone Number [facility] [place] [address] * Heparin (unfractionated) Level (06/04/2024 4:38 AM [...] ORDERABLE S [facility] [place] [address] * (ABNORMAL) CBC (with Diff) (06/04/2024 4:38 [...] - 13.8 % 06/04/2024 5:12 AM EDT [facility] NRBC% auto 0.0 % 06/04/2024 5:12 AM [facility] NRBC Absolute <0.01 <0.01 x10(3)/mc L 06/04/2024 5:12 AM [facility] Neutrophil % 60.3 % 06/04/2024 5:12 AM [facility] Neutrophil Absolute (ANC) - Automated 6.91(H) 1.70 - 6.10 x10(3)/mc L 06/04/2024 5:12 AM [facility] Lymph % 25.1 % 06/04/2024 5:12 AM [facility] Lymph Absolute 2.87 0.90 - 3.20 x10(3)/mc L 06/04/2024 5:12 AM [facility] Monocyte % 10.6 % 06/04/2024 5:12 AM [facility] Monocyte Absolute 1.21(H) 0.30 - 0.90 x10(3)/mc L 06/04/2024 5:12 AM [facility] Eos % 2.8 % 06/04/2024 5:12 AM [facility] Eos Absolute 0.32 0.00 - 0.40 x10(3)/mc L 06/04/2024 5:12 AM [facility] Basophil % 0.7 % 06/04/2024 5:12 AM [facility] Baso Absolute 0.08 0.00 - 0.10 x10(3)/mc L 06/04/2024 5:12 AM [facility] Immature Gran % 0.5 % 5:12 AM [facility] Immature Gran Absolute 0.06(H) 0.00 - 0.04 x10(3)/mc L 06/04/2024 5:12 AM [facility] Blood VENOUS BLOOD SPECIMEN / Unknown Venipuncture / Unknown 06/04/2024 4:38 AM EDT 06/04/2024 5:07 AM EDT Shahnaz Scanlon MD HEMATOLOGY ORDERABLE S [facility] [place] [address] * Magnesium (06/04/2024 4:38 AM EDT) Magnesium 0.84 0.69 - 1.07 mMol/L 06/04/2024 5:35 AM EDT [facility] Blood VENOUS BLOOD SPECIMEN / Unknown Venipuncture / Unknown 06/04/2024 4:38 AM EDT 06/04/2024 5:07 AM EDT Shahnaz Scanlon MD CHEMISTRY ORDERABLES Performing Organization Address City/[facility]/ZIP Co de Phone Number [facility] [place] [address] * (ABNORMAL) Basic Metabolic Panel (06/04/2024 4:38 [...] CHEMISTRY ORDERABLES [facility] [place] [address] * Heparin (unfractionated) Level (06/03/2024 8:58 PM [...] MD HEMATOLOGY ORDERABLE S Performing Organization Address [facility]/ZIP Co de Phone Number [facility] [place] [address] * POC, GLUCOSE (06/03/2024 8:05 PM EDT) Glucometer, POC 136 65 - 199 mg/dL 06/03/2024 8:05 PM EDT [facility] Comment:Supplemental ranges: <140 mg/dL before meals <180 mg/dL all other times of the day. Blood CAPILLARY BLOOD / Unknown 06/03/2024 8:05 PM EDT 06/03/2024 8:05 PM EDT Delroy Fofana MD POINT OF CARE TEST ORDERABLES Performing Organization Address [facility] Co de Phone Number [facility] [place] [address] * POC, GLUCOSE (06/03/2024 5:48 PM EDT) Glucometer, POC 191 65 - 199 mg/dL 06/03/2024 5:48 PM EDT [facility] Comment:Supplemental ranges: <140 mg/dL before meals <180 mg/dL all other times of the day. Blood CAPILLARY BLOOD / Unknown 06/03/2024 5:48 PM EDT 06/03/2024 5:49 PM EDT Delroy Fofana MD POINT OF CARE TEST ORDERABLES [facility] [place] [address] * CT Chest wo Contrast (Generic) (06/03/2024 4:33 PM EDT) WORKSTATION ID [id number] RAD Anatomical Region Laterality Modality Chest Computed Tomogra phy Impressions 06/03/2024 4:47 PM EDT Cardiomegaly. Biventricular ICD leads in place. Thank you for letting us participate in the care of this patient. ??If you are a health care provider and have any questions regarding this report, please contact the number below. ??For patients who have questions please contact the health manager critical care unit that requested your imaging first. ? Electronically signed by: Stuart Aponte MD, [facility] ??([phone]), at 06/03/2024 4:47 PM Narrative 06/03/2024 4:47 [...] who have questions please contactthe health manager critical care unit that requested your imaging first. Electronically signed by: Stuart Aponte MD, [facility]([phone]), at 06/03/2024 4:47 PM Bobby Loja MD IMG CT ORDERABLES * Carotid Duplex, Bilateral (06/03/2024 2:19 PM EDT) VB Text Report Department: Vascular Surgery Lab Patient: [id number] (GEORGE MEHTA) CPT: 84151 Referring Physician: BOBBY LOJA ?? Phone: Indications: [...] Loja MD VASCULAR ORDERABLES Performing Organization Address City/State/[facility] Co de Phone Number [id number] * Heparin [...] ORDERABLE S [facility] [place] [address] * POC, GLUCOSE (06/03/2024 11:14 AM EDT) Glucometer, POC 166 65 - 199 mg/dL 06/03/2024 11:14 AM EDT [facility] Comment:Supplemental ranges: <140 mg/dL before meals <180 mg/dL all other times of the day. Blood CAPILLARY BLOOD / Unknown 06/03/2024 11:14 AM EDT 06/03/2024 11:14 AM EDT Delroy Fofana MD POINT OF CARE TEST ORDERABLES Performing Organization Address [facility] Co de Phone Number [facility] [place] [address] * (ABNORMAL) Troponin-T, High Sensitivity 3 Hour [...] troponin value can be found in the [facility] Laboratory Test Catalog Troponin - https://[facility].testcatalog.org/catalogs/565/files/53205 Reference: Fourth [place] Definition of Myocardial Infarction. Journal of the [place] College [employer] 2018;72:6800-5066 Troponin-T, HS 3 hr delta 06/03/2024 10:50 AM EDT [facility] Comment:Delta troponin value not calculated, sample collected outside of delta calculation time limit. Blood VENOUS BLOOD SPECIMEN / Unknown IP Care Team Draw / Unknown 06/03/2024 10:06 AM EDT 06/03/2024 10:15 AM EDT Delroy Fofana MD CHEMISTRY ORDERABLE S [facility] [place] [address] * ECHO COMPLETE W CONTRAST (06/03/2024 8:46 AM EDT) Anatomical Region Laterality Modality Cardiac Other 06/03/2024 6:52 AM EDT Narrative 06/03/2024 10:32 AM EDT [address] [place] [address] ? Echocardiogram Report Name: GEORGE MEHTA ?Study Date: 06/03/2024 06:52 AM : 1955 ? Height: 168 cm ? Account: [id number] Age: 69 yrs ? Weight: 102 kg Gender: Male ?BSA: 2.1 m2 Ordering Physician: SHAHNAZ SCANLON Referring Physician: NEHAL QUINTERO Performed By: Sara Kebede RDCS Reason For Study: STEMI Exam Location: [facility]. Interpretation Summary -Left ventricular systolic function is [...] fellow performed study of today's date). Procedure Complete-43405. Image enhancement Optison was used for left [...] Note Jonnie Jordan MD - 06/03/2024 [address] [place] [address] Echocardiogram Report Name: GEORGE MEHTA Study Date: 406:52 AM : 1955 Height: 168 cm Account: [id number] Age: 69 yrs Weight: 102 kg Gender: Male BSA: 2.1 m2 Ordering Physician: SHAHNAZ SCANLON Referring Physician: NEHAL QUINTERO Performed By: Sara Kebede RDCS Reason For Study: STEMI Exam Location: [facility]. Interpretation Summary -Left ventricular systolic function is [...] a fellow performed study of's date). Procedure Complete-53107. Image enhancement Optison was used for left [...] troponin value can be found in the [facility] Laboratory Test Catalog Troponin - https://one-.testcatalog.org/catalogs/565/files/44452 Reference: Fourth [place] Definition of Myocardial Infarction. Journal of the [place] College [employer]iology 2018;72:6285-2830 Troponin-T, HS 1 hr delta 5 ng/L [...] MD CHEMISTRY ORDERABLE S Performing Organization Address City/[facility]/ZIP Co de Phone Number [facility] [place] [address] * POC, GLUCOSE (06/03/2024 7:54 AM EDT) Glucometer, POC 195 65 - 199 mg/dL 06/03/2024 7:55 AM EDT [facility] Comment:Supplemental ranges: <140 mg/dL before meals <180 mg/dL all other times of the day. Blood CAPILLARY BLOOD / Unknown 06/03/2024 7:54 AM EDT 06/03/2024 7:55 AM EDT Nuha Rojo MD POINT OF CARE TEST ORDERABLES Performing Organization Address [facility] Co de Phone Number [facility] [place] [address] * (ABNORMAL) Troponin-T, High Sensitivity (06/03/2024 7:39 [...] troponin value can be found in the [facility] Laboratory Test Catalog Troponin - https://[employer]/catalogs/565/files/39733 Reference: Fourth [place] Definition of Myocardial Infarction. Journal of the [place] College [employer]iology 2018;72:1001-8492 Blood VENOUS BLOOD SPECIMEN / Unknown IP Care Team Draw / Unknown 06/03/2024 7:39 AM EDT 06/03/2024 7:48 AM EDT Delroy Fofana MD CHEMISTRY ORDERABLE S [facility] [place] [address] * (ABNORMAL) Troponin-T, High Sensitivity 3 Hour [...] troponin value can be found in the [facility] Laboratory Test Catalog Troponin - https://[employer]/catalogs/565/files/95699 Reference: Fourth [place] Definition of Myocardial Infarction. Journal of the [place] College of [employer]iology 2018;72:3844-3145 Troponin-T, HS 3 hr delta 46 ng/L [...] CHEMISTRY ORDERABLES [facility] [place] [address] * (ABNORMAL) Troponin-T, High Sensitivity 1 Hour [...] troponin value can be found in the [facility] Laboratory Test Catalog Troponin - https://[facility]-.testcatalog.org/catalogs/565/files/04638 Reference: Fourth [place] Definition of Myocardial Infarction. Journal of the [place] College of [employer]iology 2018;72:9391-2218 Troponin-T, HS 1 hr delta 10 ng/L [...] CHEMISTRY ORDERABLES [facility] [place] [address] * XR Chest One View (06/03/2024 2:41 AM EDT) WORKSTATION ID [id number] RAD Anatomical Region Laterality Modality Chest N/A Digital Radiogra phy Impressions 06/03/2024 3:06 AM EDT No radiographically evident acute cardiopulmonary process. Thank you for letting us participate in the care of this patient. ??If you are a health care provider and have any questions regarding this report, please contact the number below. ??For patients who have questions please contact the health manager critical care unit that requested your imaging first. ? Electronically signed by: Corazon Mauro MD, [facility] ([phone]), at 06/03/2024 3:06 AM Narrative 06/03/2024 3:06 [...] who have questions please contactthe health manager critical care unit that requested your imaging first. Electronically signed by: Corazon Mauro MD, [facility]([phone]), at 06/03/2024 3:06 AM Shahnaz Scanlon MD [...] ORDERABLE S [facility] [place] [address] * (ABNORMAL) Troponin-T, High Sensitivity (06/03/2024 2:13 [...] troponin value can be found in the [facility] Laboratory Test Catalog Troponin - https://one-.testcatalog.org/catalogs/565/files/09906 Reference: Fourth [place] Definition of Myocardial Infarction. Journal of the [place] College of Cardiology 2018;72:7201-3642 Blood VENOUS BLOOD SPECIMEN / Unknown IP Care Team Draw / Unknown 06/03/2024 2:13 AM EDT 06/03/2024 2:32 AM EDT Shahnaz Scanlon MD CHEMISTRY ORDERABLES Performing Organization Address City/[facility]/ZIP Co de Phone Number [facility] [place] [address] * Magnesium (06/03/2024 2:13 AM EDT) Magnesium 0.86 0.69 - 1.07 mMol/L 06/03/2024 3:02 AM EDT [facility] Blood VENOUS BLOOD SPECIMEN / Unknown IP Care Team Draw / Unknown 06/03/2024 2:13 AM EDT 06/03/2024 2:32 AM EDT Shahnaz Scanlon MD CHEMISTRY ORDERABLES Performing Organization Address City/[facility]/ZIP Co de Phone Number [facility] [place] [address] * Basic Metabolic Panel (06/03/2024 2:13 AM [...] CHEMISTRY ORDERABLES [facility] [place] [address] * (ABNORMAL) CBC (with Diff) (06/03/2024 2:13 AM EDT) White Blood Cell 11.16(H) 4.00 - 9.50 x10(3)/mc L 06/03/2024 2:37 AM EDT [facility] Red Blood Cell 5.09 4.58 - 5.54 x10(6)/mc L 06/03/2024 2:37 AM EDT [facility] Hemoglobin 15.0 13.7 - 16.5 g/dL 06/03/2024 2:37 AM [facility] Hematocrit 47.4 40.5 - 48.5 [...] ORDERABLE S [facility] [place] [address] * Lipid Panel (Reflex Direct LDL) (06/03/2024 [...] mg/dL HDL Cholesterol 39 mg/dL 3:02 AM [facility] Comment:Males: High Risk: <4 0 mg/dL LDL Cholesterol 21 mg/dL 3:02 AM [facility] Comment: Desirable: <100 mg/dL Above Desirable: 100-129 mg/dL Borderline High: 130-159 mg/dL High: 160-189 mg/dL Very High: > or =190 mg/dL Note: LDL calculation updated to the NIH LDL formula as of 03/07/2024 Non-HDL Cholesterol 37 mg/dL 06/03/2024 3:02 AM [facility] Comment: Desirable: <130 mg/dL Above Desirable: 130-159 mg/dL Borderline High: 160-189 mg/dL High: 190-219 mg/dL Very High: > or = 220 mg/dL Blood VENOUS BLOOD SPECIMEN / Unknown IP Care Team Draw / Unknown 06/03/2024 2:13 AM EDT 06/03/2024 2:32 AM EDT [facility] - 06/03/2024 3:02 AM [...] CHEMISTRY ORDERABLES [facility] [place] [address] * (ABNORMAL) APTT (06/03/2024 2:13 AM EDT) [facility] Signature Partial Thromboplastin Time 105(HHH) 25 [...] ORDERABLE S [facility] [place] [address] * Prothrombin Time (06/03/2024 2:13 AM EDT) [...] ORDERABLE S [facility] [place] [address] * Hepatic Function Panel (06/03/2024 2:13 AM [...] CHEMISTRY ORDERABLES [facility] [place] [address] * (ABNORMAL) pro-Brain Natriuretic Peptide (06/03/2024 2:13 AM EDT) NT-proBNP 1,628(H) <=124 pg/mL 06/03/2024 4:15 AM EDT [facility] Blood VENOUS BLOOD SPECIMEN / Unknown IP Care Team Draw / Unknown 06/03/2024 2:13 AM EDT 06/03/2024 2:32 AM EDT Shahnaz Scanlon MD CHEMISTRY ORDERABLES Performing Organization Address City/[facility]/ZIP Co de Phone Number [facility] [place] [address] * Phosphorus (06/03/2024 2:13 AM EDT) Phosphorus 4.4 2.5 - 4.5 mg/dL 06/03/2024 3:02 AM EDT [facility] Blood VENOUS BLOOD SPECIMEN / Unknown IP Care Team Draw / Unknown 06/03/2024 2:13 AM EDT 06/03/2024 2:32 AM EDT Shahnaz Scanlon MD CHEMISTRY ORDERABLES [facility] [place] [address] * EKG 12 Lead (06/03/2024 1:45 AM EDT) Ventricular rate 63 BPM MUSE SYSTEM Atrial Rate 63 BPM MUSE SYSTEM P-R Interval 168 ms MUSE SYSTEM QRS Duration 96 ms MUSE SYSTEM Q-T Interval 400 ms MUSE SYSTEM QTC Calculated (Bezet) 409 ms MUSE SYSTEM Calculated P [place] 65 degrees MUSE SYSTEM Calculated R [place] 70 degrees MUSE SYSTEM Calculated T Mumford -86 degrees MUSE SYSTEM INTERPRETATION Atrial-sensed ventricular-paced rhythm Abnormal ECG No previous ECGs available I personally reviewed the tracing and edited the fellows interpretation Confirmed by fellow Sunni Agudelo ([id number]) on 06/04/2024 3:55:40 PM Confirmed by MD Tamia, Stuart Perry ([id number]) on 06/05/2024 11:46:48 AM MUSE SYSTEM 06/03/2024 1:45 AM EDT 06/05/2024 11:46 AM EDT Shahnaz Scanlon MD ECG ORDERABLES MUSE SYSTEM * CARDIAC CATHETERIZATION (06/03/2024 12:42 AM EDT) Anatomical Region Laterality Modality Other Narrative 06/04/2024 2:22 PM EDT ?[place] ? Cardiac Catheterization/Intervention Report ? Patient Name: George Mehta L. ? Procedure Date: 06/02/2024 ? A #: [id number] ? Primary Physician: Nuha Shen I ? Case #: [id number] ? File Name: [id number] ? Catheterization Order Number: [id number] ? [facility] ? Final Report [place], [place] ? Patient Name: ? George L. Tyson ? ID#: ?[id number] ? : ?1955 ? Procedure Date: ? [...] procedure was Emergent. The indication for ?the geophysical laboratory supervisor visit is ACS less than or equal [...] ?3.5 guiding catheter and a 3.5 Fr [place] 20 Mhz using Manual ?pullback. ??Imaging was [...] 3.5 guiding catheter and a 3.5 Fr [place] 20 Mhz using ?Manual pullback. ??Imaging was [...] Procedure Note Nuha Shen MD - 07/20/2024 [place] Cardiac Catheterization/Intervention Report Patient Name: George Mehta Procedure Date: 06/02/2024 A #: [id number] Primary Physician: Nuha Shen I Case #: [id number] File Name: [id number] Catheterization Order Number: [id number] [facility] FinalReport [place], [place] Patient Name: George Mehta ID#:[id number] :1955 Procedure Date: June 02, 2024 Case #: [id number] Room: 5 Case Physician: Nuha Shen M.D. Start: 23:23 Admission:06/02/2024 Referring Physician: Junaid Randall Discharge:06/21/2024 Procedures: * Coronary Angiography * Left Heart Catheterization * Coronary Ultrasound Pre Case Status: These procedures were performed on an emergent basis. History George Mehat is a 69 year old man. He [...] diagnostic procedure was Emergent. Theindication for the geophysical laboratory supervisor visit is ACS less than or equal [...] units of heparin were administered. A total [id number] of Omnipaque were opened, 84cc of Omnipaque were administered [id number] of Omnipaque were wasted. Radiation: Fluoro time [...] 3.5 guiding catheter and a 3.5 Fr [place] 20 Mhz usingManual pullback. Imaging was successful. [...] 3.5 guiding catheter and a 3.5 Fr [place] 20 Mhzusing Manual pullback. Imaging was successful. Indication: IVUS performed for pre intervention planning. Findings Pre-Intervention: scattered plaque, calcification and [id number] degrees calcification. Findings Post-Intervention: Stent not imaged [...] * POC, GLUCOSE (06/02/2024 11:31 PM EDT) [facility] Signature Glucometer, POC 156 65 - 199 mg/dL 06/02/2024 11:31 PM EDT [facility] Comment:Supplemental ranges: <140 mg/dL before meals <180 mg/dL all other times of the day. Blood CAPILLARY BLOOD / Unknown 06/02/2024 11:31 PM EDT 06/02/2024 11:31 PM EDT Nuha Rojo MD POINT OF CARE TEST ORDERABLES Performing Organization Address City/State/[facility] Co de Phone Number [facility] [place] [phone] documented in this encounter Visit Diagnoses Not [...] 2100, Last dose on Fri06/23/24 at 0900, Volunteer Assistant recommended duration is 3 days., Routine Given [...] 10:46 AM EST 50 mEq sodium chloride ([place]) 0.65 % nasal spray 1 spray 1 [...] Lane RN)175 (Given - Provider: Mary Lou Lnae RN) 08 (Given - Provider: Michelle Orozco [...] Myers RN) 0841 (Given - Provider: Shazia Mcdonlad RN)1300 (Due) escitalopram (Lexapro) tablet 20 mg [...] BG 129)1999 (Not Given - Provider: Christina Myesr RN - Reason: Order parameters not met [...] 2100, Last dose on Fri06/23/24 at 0900, Volunteer Assistant recommended duration is 3 days., Routine 2043 [...] Routine 08 (Given - Provider: Mary Lou Lnae, JAMIE) 08 (Given - Provider: Michelle Orozco [...] oral route first line., Routine sodium chloride ([place]) 0.65 % nasal spray 1 spray 1 [...] Routine documented in this encounter Care Teams Multimedia Project Manager Relationship Specialty Start Date End Date Mauro Berumen MD [address] [place] [address] PCP - General Family Medicine 06/02/24 documented as of this encounter
--- OUTSIDE RECORDS SUMMARY | 2024-09-03 10:35 | XMS_ITS | Encounter Summary ---
Author Organization [facility] Address [facility] [place] [address] Care Team Providers Care Bottom Hoop Driver Name Role Phone Mauro Berumen MD Primary Care Provider [phone] Encounter Details Date Type Department Care Team (Latest Contact Info) Description 06/03/2024 Travel Social History Tobacco Use Types Packs/Day Years Used Date Smoking Tobacco: Every Day Cigarettes Smokeless Tobacco: Never [facility] Utilities Answer Date Recorded In the past [...] any time in the past 12 m [facility], were you homeless or living in [...] 2:00 PM EST Office Visit Cardiology at [address] [phone] Moi Falcon MD [facility] [place] [address] documented as of this encounter Visit Diagnoses Not on filedocumented in this encounter Care Teams Bottom Hoop Driver Relationship Specialty Start Date End Date Mauro Berumen MD [address] [place] [id number] PCP - General Family Medicine 06/02/24 documented as of this encounter
--- OUTSIDE RECORDS SUMMARY | 2024-09-03 10:35 | XMS_ITS | Encounter Summary ---
Author Organization [facility] Address [facility] [place] [address] Care Team Providers Care Vat Tender Name Role Phone Mauro Berumen MD Primary Care Provider Encounter Details Date Type Department Care Team (Late st Contact Info) Description 06/08/2024 Ophth [place]am [place] [address] Yumiko De La Torre, COT Social History [...] any time in the past 12 m [facility], were you homeless or living in [...] 2:00 PM EST Office Visit Cardiology at [address] [phone] Moi Falcon MD [facility] [place] [address] documented as of this encounter Visit Diagnoses Not on filedocumented in this encounter Care Teams Vat Tender Relationship Specialty Start Date End Date Mauro Berumen MD [address] [place] [address] PCP - General Family Medicine 06/02/24 documented as of this encounter
--- OUTSIDE RECORDS SUMMARY | 2024-09-03 10:35 | XMS_ITS | Encounter Summary ---
Author Organization [facility] [place] [address] Care Team Providers Care Tile Shader Name Role Phone Mauro Berumen MD Primary Care Provider [phone] Reason for Visit * Auth/Cert Specialty Diagnoses / Procedures Referred By Carroll lopez Referred To Contact Diagnoses STEMI (ST elevation myocardial infarction) STEMI Procedures CARDIAC CATHETERIZATION EMERGENCY Delroy Monterroso MD [facility] [place] [address] [facility] Referral ID Status Reason Start Date Expiration Date Visits Re quested Visits Authorized [id number] 1 1 Encounter Details Date Type Department Care Team (Late st Contact Info) Description 06/13/2024 9:00 AM EST - 06/13/2024 10:00 AM EST Surgery [place] [address] Nuha Shen MD [facility] [place] [address] CARDIAC CATHETERIZATION Social History Tobacco Use Types Packs/Day Years Used Date Smoking Tobacco: Every Day Cigarettes Smokeless Tobacco: Never Tobacco Cessation:Ready to Q uit: No; Counseling Given: Yes [facility] Utilities Answer Date Recorded In the past 12 months has [employer], gas, oil, or water company threatened to [...] in the past 12 m [facility], were you homeless or living [...] Patient Age: 69 y.o. Birthdate: 1955 Language: Georgian Race: Choose not to Disclose Ethnicity: Not nor Admit Date: 06/02/2024 Discharge Date: 06/21/2024 Attending Physician: Bobby Loja MD Follow-up Recommendations for Providers: Please continue routine management of cardiovascular risk factors including blood pressure, lipids,glucose, etc. Please note any changes to medications. Patient to follow up with PCP, Mauro Berumen MD, in 1-2 weeks. Patient to follow up with Evidence Custodian, Kristen Cardenas in 2-3 weeks. Patient to follow up with Cardiac Surgeon, Dr. Bobby Loja, in 4 wks. Inpatient Provider Contact Information: [facility] Section of Cardiac Surgery [facility] [address] FAX [phone] Discharge Diagnoses (Hospital Problems) Primary Diagnoses: STEMI [...] (WRVU 33.75) performed by Bobby Loja MD [facility] OR PRO CABG, ARTERY-VEIN, TWO N/A 06/14/2024 @CABG, TWO VENOUS GRAFTS & ARTERIAL GRAFT (WRVU 7.93) performed by Bobby Loja MD at [facility] OR PRO ENDOSCOPY W/VIDEO-ASST VEIN HARVEST, CABG N/A 06/14/2024 ENDOSCOPIC HARVEST VEIN(S) FOR CABG (WRVU 0.31) performed by Bobby Loja MD at [facility] MAIN OR PRO EXC MEDIASTINAL TUMOR N/A 06/14/2024 @EXCISION OF MEDIASTINAL TUMOR (WRVU 19.55) performed by Bobby Loja MD at [facility] MA[facility] OR PRO INSERT INTRA-AORTIC BALLOON ASST DEVICE PERCUTANEOUS N/A 06/13/2024 @INSERTION OF IABP,PERCUTANEOUS (WRVU 4.84) performed by Nuha Shen MD at [facility] CATH LABS PRO UNLISTED CARDIAC SURG PROCEDURE N/A 06/14/2024 EXPLORATION AND OVERSEW ATRIAL APPENDAGE (WRVU 5.94) performed by Bobby Loja MD at [facility] [place] Prior To Admission Medications [...] y.o. male with a PMHx of previous HI s/p PCI x3, ICM/HFrEF (LVEF 30%) s/p ICD, DMII, HTN, HLD, remote melanoma, and smoker who presented to [facility] last night via EMS after developing acute, severe chest pain while watching TV. Patient was ruled in for STEMI, given TNK, ASA, plavix, heparin gtt, and sent to [facility] for coronary angiography. [facility] demonstrated severely calcified left coronary system with notable LCx 75/80% lesions and COVERAGE ANALYST OM1 with ISR with collateral retrograde filling, [...] admitted to [facility] on 06[facility]2024 via the CardiologyService with an anterior STEMI after receiving lytics at OSH. He was brought to the prosthetics lab technician which showed severely calcified left coronary system with notable LCx 75/80% lesions and COVERAGE ANALYST OM1 with ISR with collateral retrograde filling, [...] 2 tablespoons of dried fruit. Milk and uk-qdquq-noxvq yogurt have 15 grams of carbs in a serving. A serving is 1 cup of milk or 3/4 cup (6 oz) of jp-tytud-vafii yogurt. Starchy vegetables have 15 grams of carbs in a serving. A serving is ?? cup of mashed potatoes or sweet potato; 1 cup winter squash; ?? of a small baked potato; ?? cup of cooked beans; or ?? cup cooked corn or green peas. Learn how much carbs to eat each day and at each meal. A dietitian or certified nurse can teach you how to keep track [...] Bobby Loja and/or the Cardiac Surgery Physician Quality Assurance Engineer Team may be reached at . [...] Dr. Bobby Loja. You may use a [place] or treadmill but avoid any pulling [...] friends, go to a movie, go to catholic, etc. Heavy activities: No hunting, skiing, jogging, [...] should resume a low fat, low cholesterol, [place] Heart [employer] Diet/Diabetic diet. Driving: No driving [...] while being managed by your PCP and/or Evidence Custodian. For future medication refills, please refer to your PCP and/or Evidence Custodian after your discharge from our service. Thank you REMOVE CHEST TUBE SUTURES ON OR AFTER 06/24/2024 Home oxygen therapy: N/A Follow up appointments: You should follow up with your PCP, Mauro Berumen MD, in 1-2 weeks. You should follow up with your Evidence Custodian, Dr CARDENAS. You have an appointment with your Cardiac Surgeon, Dr. Bobby Loja, in 4 wks. Cardiac Rehabilitation: George Mehta was seen today regarding participation in the outpatient Phase 2 Cardiac Rehabilitation at [facility]. The patient agrees to a referral to this program. The referral will be sent at discharge and the patient should be contacted by the program within 1-2 weeks from discharge. Future Appointments and Orders Future Orders Complete By Expires Referral to Cardiac Rehab [[id number] Custom] As directed Process Instructions: If no progress note charted, please enter Clinical details in comments. Scheduling Instructions: Questions: My question or request is: s/p CABG- cardiac rehab at [facility] Referral to Home Health [REF34 Custom] As directed Process Instructions: If no progress note charted, please enter Clinical details in comments. Scheduling Instructions: Comments: Please evaluate George Mehta for admission to Home Health. [address] [facility] [address] (home) Date of : 1955 Inpatient DOCUMENTATION FOR VNA SERVICES (INCLUDING THOSE PATIENTS WITH MEDICARE COVERAGE REQUIRINGHOME VNA SERVICES AND/OR HOSPICE SERVICES) PATIENT'S LOCATION: George Mehta [address] [facility] [address] (home) Telephone Information: Guest House Manager's Name: self In discussion with the attending physician, it is certified that this patient is under their care and that they, or a Nurse Practitioner, or Physician Quality Assurance Engineer who is working directly with them, [...] for services as follows: HOME HEALTH AGENCY: [facility]. [address] [place] [address] RN orders: Cardiopulmonary assessment, incisional assessment, assess [...] issues please call the Cardiology Office at [phone] FOR MEDICARE ONLY: (please delete this section [...] As above. Signed: KEILA HANLEY APRN [facility] Section of Cardiac Surgery [facility] [address] FAX [phone] Date: 06/21/2024 CC: MD Antonino Tinajero Joshua R, PA [address] [place] [address] [place] [address] documented in this encounter Discharge Instructions * [...] 2 tablespoons of dried fruit. Milk and rb-xcrpk-zhnjz yogurt have 15 grams of carbs in a serving. A serving is 1 cup of milk or 3/4 cup (6 oz) of rh-sxdap-qmydq yogurt. Starchy vegetables have 15 grams of carbs in a serving. A serving is ?? cup of mashed potatoes or sweet potato; 1 cup winter squash; ?? of a small baked potato; ?? cup of cooked beans; or ?? cup cooked corn or green peas. Learn how much carbs to eat each day and at each meal. A dietitian or certified nurse can teach you how to keep track [...] Bobby Loja and/or the Cardiac Surgery Physician Quality Assurance Engineer Team may be reached at . [...] Dr. Bobby Loja. You may use a [place] or treadmill but avoid any pulling [...] friends, go to a movie, go to catholic, etc. Heavy activities: No hunting, skiing, jogging, [...] should resume a low fat, low cholesterol, [place] Heart Association Diet/Diabetic diet. Driving: No driving [...] while being managed by your PCP and/or Evidence Custodian. For future medication refills, please refer to your PCP and/or Evidence Custodian after your discharge from our service. Thank you REMOVE CHEST TUBE SUTURES ON OR AFTER 06/24/2024 Home oxygen therapy: N/A Follow up appointments: You should follow up with your PCP, Mauro Berumen MD, in 1-2 weeks. You should follow up with your Evidence Custodian, Dr CARDENAS. You have an appointment with your Cardiac Surgeon, Dr. Bobby Loja, in 4 wks. Cardiac Rehabilitation: George Mehta was seen today regarding participation in the outpatient Phase 2 Cardiac Rehabilitation at [facility]. The patient agrees to a [...] RN - 06/21/2024 8:32 AM EST During [facility] Purposeful Rounding, an assessment of your [...] RN - 06/21/2024 8:31 AM EST During [facility] Purposeful Rounding, an assessment of your [...] weekly) [] Other * Alejandra Baumann, MUSIC ADAPTER - 06/21/2024 7:05 AM EST Follow Up [...] MARIALUISA clipping. PMH of chronic HFrEF s/p APPLICATION PENETRATION TESTER/ICD, IDDM2, HTN, HLD, remote melanoma, active smoker. [...] juice or regular (not diet) soda 6 m-spatialavers small box of raisins 4 glucose tablets [...] 2 tablespoons of dried fruit. Milk and xn-mznib-spdpr yogurt have 15 grams of carbs in a serving. A serving is 1 cup of milk or 3/4 cup (6 oz) of ig-ttyss-orejw yogurt. Starchy vegetables have 15 grams of carbs in a serving. A serving is ?? cup of mashed potatoes or sweet potato; 1 cup winter squash; ?? of a small baked potato; ?? cup of cooked beans; or ?? cup cooked corn or green peas. Learn how much carbs to eat each day and at each meal. A dietitian or certified nurse can teach you how to keep track [...] cheese, and peanut butter. Alejandra Baumann APRN [facility] Endocrinology Diabetes Management Pager [phone] Weekends please page [phone] * Eric Packer PA - 06/20/2024 7:44 AM EST Cardiac Surgery Progress Note George Mehta is a 69 y.o. male with a history of CAD s/p multiple PCI who presented with an anterior STEMI and was given lytics. Cath showed MV CAD without culprit vessel. He is now 6 Days Post-OpCABGx3 and MARIALUISA clipping. PMH of chronic HFrEF s/p APPLICATION PENETRATION TESTER/ICD, IDDM2, HTN, HLD, remote melanoma, active smoker. [...] 89 Pt is followed by heart failure marketing writer at [facility] #IDDM2 DM team following Lantus, SSI Carb controlled diet #Active smoker Duoneb prn Dispo: Floor, full code, home when ready Discussed with attending surgeon on rounds this morning. 06/20/2024 Between the hours of 1800 - 0600 and on the weekends please page [phone]. * Alejandra Baumann, JOSÉ ANTONIO - 06/20/2024 7:21 AM EST Follow Up Diabetes Consult Patient Interview Blood glucose values and insulin use reviewed. 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 PMH of chronic HFrEF s/p APPLICATION PENETRATION TESTER/ICD, IDDM2, HTN, HLD, remote melanoma, active smoker. 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 Milk and fa-asxgx-amyjo yogurt have 15 grams of carbs in a serving. A serving is 1 cup of milk or 3/4 cup (6 oz) of bs-trixj-atufm yogurt. Starchy vegetables have 15 grams of carbs in a serving. A serving is ?? cup of mashed potatoes or sweet potato; 1 cup winter squash; ?? of a small baked potato; ?? cup of cooked beans; or ?? cup cooked corn or green peas. Learn how much carbs to eat each day and at each meal. A dietitian or certified nurse can teach you how to keep track [...] MARIALUISA clipping. PMH of chronic HFrEF s/p APPLICATION PENETRATION TESTER/ICD, IDDM2, HTN, HLD, remote melanoma, active smoker. [...] 90 Pt is followed by heart failure marketing writer at [facility] Tx to floor #IDDM2 DM team following pre-op Lantus, SSI Carb controlled diet #Active smoker Duoneb prn Dispo: Floor status, full code Discussed with attending surgeon on rounds this morning. Jeffy Hood MD 06/19/2024 Between the hours of 1800 - 0600 and on the weekends please page [phone]. * Alejandra Baumann, MUSIC ADAPTER - 06/19/2024 7:09 AM EST Follow Up Diabetes Consult Patient Interview Blood glucose values and insulin use reviewed. Jardiance added back yesterday, early head start teacher low BGto 51. Glargine reduced to 45 [...] MARIALUISA clipping. PMH of chronic HFrEF s/p APPLICATION PENETRATION TESTER/ICD, IDDM2, HTN, HLD, remote melanoma, active smoker. Jardiance added back yesterday. 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 Glargine reduced [...] 2 tablespoons of dried fruit. Milk and pj-uhofp-wdwht yogurt have 15 grams of carbs in a serving. A serving is 1 cup of milk or 3/4 cup (6 oz) of gs-hmcmg-rsnux yogurt. Starchy vegetables have 15 grams of carbs in a serving. A serving is ?? cup of mashed potatoes or sweet potato; 1 cup winter squash; ?? of a small baked potato; ?? cup of cooked beans; or ?? cup cooked corn or green peas. Learn how much carbs to eat each day and at each meal. A dietitian or certified nurse can teach you how to keep track [...] cheese, and peanut butter. Alejandra Baumann APRN [facility] Endocrinology Diabetes Management Pager [phone] Weekends please page [phone] * Hilda Resendez PTA - 06/18/2024 9:19 AM EST Physical Therapy Note 2 Patient profile: George Mehta is a 69 y.o. male with a history of CAD s/p multiple PCI who presented with an anterior STEMI and was given lytics. Cath showed MV CAD without culprit vessel. He is now 1 Day Post-Op CABGx3 and MARIALUISA clipping. PMH of chronic HFrEF s/p APPLICATION PENETRATION TESTER/ICD, IDDM2, HTN, HLD, remote melanoma, active smoker. Interval History: Per last cardiac surgery note on 06/18/2024 Cr improved 1.4 on lasix 40 iv bid -1.5L, made 2.5L urine Coreg, entresto restarted Floor status Social History: Pt lives with his in a 1 level apartment with no steps to enter. 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 He drives. He sleeps in a recliner at baseline. Precautions/Special Considerations: Sternal precautions, PIV, at risk to fall, PPM Mobility and Positioning Recommendations: Pt to utilize no AD, supervision for ambulation and transfers w/ senior staff consultant as able. Please encourage up to chair [...] least restrictive device Time IN / OUT: 4463-9081 Total Time: 11 minutes; TEF 1 Hilda Resendez PTA Pager: [phone] Physical Therapy Inpatient Rehabilitation Department * Keila [...] MARIALUISA clipping. PMH of chronic HFrEF s/p APPLICATION PENETRATION TESTER/ICD, IDDM2, HTN, HLD, remote melanoma, active smoker. [...] 90 Pt is followed by heart failure marketing writer at [facility], will get name for f/up appt Tx to floor #IDDM2 DM team following pre-op Lantus, SSI Carb controlled diet ? Restarting jardiance #Active smoker Duoneb prn Dispo: CVCC, Full code, tx to floor Discussed with attending surgeon on rounds this morning. KEILA HANLEY APRN 06/18/2024 Between the hours of 1800 - 0600 and on the weekends please page [phone]. * Alejandra Baumann APRN - 06/17/2024 3:29 [...] MARIALUISA clipping. PMH of chronic HFrEF s/p APPLICATION PENETRATION TESTER/ICD, IDDM2, HTN, HLD, remote melanoma, active smoker. [...] based on ISF 20 Alejandra Baumann APRN [facility] Endocrinology Diabetes Management Pager [phone] Weekends please page [phone] 35 minutes were spent over the course [...] MARIALUISA clipping. PMH of chronic HFrEF s/p APPLICATION PENETRATION TESTER/ICD, IDDM2, HTN, HLD, remote melanoma, active smoker. [...] 0600 and on the weekends please page [phone]. * Raymond Carlton MD - 06/16/2024 1:11 PM EST CARDIAC CRITICAL CARE ATTENDING STAFF PROGRESS NOTE Patient seen and examined. George Mehta is a 69 y.o. male with: Active Hospital Problems Diagnosis STEMI (ST elevation myocardial infarction) Cardiac resynchronization therapy defibrillator (APPLICATION PENETRATION TESTER-D) - Medtronic Amplia Cardiomyopathy, ischemic Acute on chronic heart failure with reduced ejection fraction (HFrEF, <= 40%) Coronary artery disease involving chickaloon coronary artery of chickaloon heart without angina pectoris Type 2 diabetes [...] encouragement provided Patient screened for f/u and expert medical writer met pt at bedside. Pt states [...] unless consulted in the interim. RICHA Simmons Resource Recovery Specialist * Octaviano Horvath PA - 06/16/2024 8:07 AM EST Cardiac Surgery Progress Note George Mehta is a 69 y.o. male with a history of CAD s/p multiple PCI who presented with an anterior STEMI and was given lytics. Cath showed MV CAD without culprit vessel. He is now 2 Days Post-OpCABGx3 and MARIALUISA clipping. PMH of chronic HFrEF s/p APPLICATION PENETRATION TESTER/ICD, IDDM2, HTN, HLD, remote melanoma, active smoker. [...] 0600 and on the weekends please page [phone]. * Jono Fernandez PT - 06/15/2024 4:09 PM EST Physical Therapy Evaluation Patient profile: George Mehta is a 69 y.o. male with a history of CAD s/p multiple PCI who presented with an anterior STEMI and was given lytics. Cath showed MV CAD without culprit vessel. He is now 1 Day Post-Op CABGx3 and MARIALUISA clipping. PMH of chronic HFrEF s/p APPLICATION PENETRATION TESTER/ICD, IDDM2, HTN, HLD, remote melanoma, active smoker. 24h Events: From OR on Dobutamine IABP removed Bedrest ended ~2100, sedation weaned Extubated ~0200 Dobutamine weaned to 1 this morning, CI 2.6, shut off and repeat CI 2.4 Social History: Pt lives with his in a 1 level apartment with no steps to enter. 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 He drives. He sleeps [...] outlined inthis evaluation. JONO FERNANDEZ, PT Pager: [phone] Physical Therapy Inpatient Rehabilitation Department Time IN / OUT: 5818-7391 Total Time: 33 (eval) minutes * Alejandra Baumann APRN - 06/15/2024 11:39 AM EST Follow Up Diabetes Consult Patient Interview Blood glucose values and insulin use reviewed. Pt remains on an insulin drip today following [id number] MARIALUISA clipping. George continues to complain of [...] MARIALUISA clipping. PMH of chronic HFrEF s/p APPLICATION PENETRATION TESTER/ICD, IDDM2, HTN, HLD, remote melanoma, active smoker. [...] based on ISF 20 Alejandra Baumann APRN [facility] Endocrinology Diabetes Management Pager [phone] Weekends please page [phone] 50 minutes were spent over the course [...] elevation myocardial infarction) Cardiac resynchronization therapy defibrillator (APPLICATION PENETRATION TESTER-D) - Medtronic Amplia Cardiomyopathy, ischemic Acute on chronic heart failure with reduced ejection fraction (HFrEF, <= 40%) Coronary artery disease involving chickaloon coronary artery of chickaloon heart without angina pectoris Type 2 diabetes [...] with h/o DM, CAD with prior PCI, APPLICATION PENETRATION TESTER-D who presented with crushing chest pain, found [...] MARIALUISA clipping. PMH of chronic HFrEF s/p APPLICATION PENETRATION TESTER/ICD, IDDM2, HTN, HLD, remote melanoma, active smoker. [...] sternotomy dressing CDI, saphenectomy dressing CDi Tubes/Lines/Drains: [place], RIJ, A-line, Mediastinal marcos and bilateral pleural [...] 0600 and on the weekends please page [phone]. * Yoli Donaldson SENIOR ELECTRICAL DESIGNER - 06/15/2024 5:35 AM EST AMV Protocol: [...] with h/o DM, CAD with prior PCI, APPLICATION PENETRATION TESTER-D who presented with crushing chest pain, found [...] with h/o DM, CAD with prior PCI, APPLICATION PENETRATION TESTER-D who presented with crushing chest pain, found [...] 0600 and on the weekends please page [phone]. * Chloé Cortez - 06/14/2024 9:36 AM [...] unless consulted in the interim. Chloé Cortez Heel Curver * Jim Benites MD - 06/13/2024 1:15 [...] - Mildly dilated left ventricle size with ovubvxzs-lg-jvnfgasn decreased LV systolic function. LV ejection fraction [...] (abstinent since admission), ASCVD with multiple prior HI and PCIs, ICM/HFrEF LVEF 30% (all territories [...] elevation myocardial infarction) Cardiac resynchronization therapy defibrillator (APPLICATION PENETRATION TESTER-D) - Medtronic Amplia Cardiomyopathy, ischemic Acute on chronic heart failure with reduced ejection fraction (HFrEF, <= 40%) Coronary artery disease involving chickaloon coronary artery of chickaloon heart without angina pectoris Type 2 diabetes [...] PCP: Mauro Berumen MD PCP phone number: [phone] Date of Admission: 06/02/2024 ( Hospital Day 10 days ) Attending:Ethel Carrillo MD ID: 69 y.o. male with a h/o DM type 2, HTN, HLD, current smoker (2-3 cigarettes/day), HFrEF with anICD for low EF (~30%), and CAD with prior HI x3 with JENNA placed in [place], [facility], PAD, presented to [facility] with 1 hour of retrosternal CP (05/13) while watching TV, found to have STEMI. Active Problems: Active Hospital Problems Diagnosis STEMI (ST elevation myocardial infarction) Cardiac resynchronization therapy defibrillator (APPLICATION PENETRATION TESTER-D) - Medtronic Amplia Cardiomyopathy, ischemic Acute on chronic heart failure with reduced ejection fraction (HFrEF, <= 40%) Coronary artery disease involving chickaloon coronary artery of chickaloon heart without angina pectoris Type 2 diabetes [...] in the last 7068 hours. Invalid input(s): [id number] Recent Labs 06/12/24 0425 06/11/24 2356 06/11/24 2025 06/11/24 1624 06/11/24 1108 06/11/24 0748 06/11/24 0357 06/11/24 0050 06/10/24 1922 06/10/24 1735 06/10/24 1125 06/10/24 0746 POCGLU 132 135 210* 81 233* 184 132 144 236* 123 216* 206* Heme No results for input(s): LDH, HAPTOGLOBIN, URICACID in the last 168 hours. ABG (Arterial Blood Gas) No results found for: PHART, PO2ART, UZW1BBF, TEB8BTA Microbiology: Microbiology Results (Last 30 days) No results found for the last 720 hours. Imaging: Results for orders placed or performed during the hospital encounter of 06/02/24 XR Chest One View (Exam End: 06/03/2024 2:41 AM) Result Value WORKSTATION ID [id number] Impression No radiographically evident acute cardiopulmonary process. Thank you for letting us participate in the care of this patient. If you are a health care provider and have any questions regarding this report, please contact the number below. For patients who have questions please contact the health medicare sales representative that requested your imaging first. Cardiac Morphology Function wwo Contrast (Exam End: 06/07/2024 1:10 PM) Result Value WORKSTATION ID [id number] Impression - Findings consistent with an ischemic [...] - Mildly dilated left ventricle size with nxlgonjm-ie-arckhplu decreased LV systolic function. LV ejection fraction [...] who have questions please contact the health medicare sales representative that requested your imaging first. Chest wo Contrast (Generic) (Exam End: 06/03/2024 4:33 PM) Result Value WORKSTATION ID [id number] Impression Cardiomegaly. Biventricular ICD leads in place. Thank you for letting us participate in the care of this patient. If you are a health care provider and have any questions regarding this report, please contact the number below. For patients who have questions please contact the health medicare sales representative that requested your imaging first. Chest PA & Lateral (Generic) (Exam End: 06/07/2024 7:03 AM) Result Value WORKSTATION ID [id number] Impression Biventricular ICD leads intact and in [...] who have questions please contact the health medicare sales representative that requested your imaging first. : Limited echo performed by fellow store person to assess LV function. Left ventricle [...] ischemic cardiomyopathy with HFrEF (~30% EF), prior HI with stents, DM type 2, HTN, HLD, active smoker, presented with anterior STEMI. Angiography revealed severe multivessel CAD with extensive calcification and YUE 3 flow in all vessels, without a clear culprit lesion. Currently pain-free after TNK, Plavix, ASA, and heparin, with mildly elevated LVEDP at 40 mmHg and mild volume overload. 06/12/24: Patient stable, asymptomatic. Plan to go to prosthetics lab technician for balloon pump tomorrow, then [...] CODE Dain Colón MD Cardiology, M1-S2, Pager #[phone] 06/12/24 Associated attestation - Ethel Carrillo MD [...] (abstinent since admission), ASCVD with multiple prior HI and PCIs, ICM/HFrEF LVEF 30% (all territories [...] of two midnights or is on the [facility] inpatient only procedure list (status C) due to: acute myocardial infarction requiring titration of IV medication and fluid monitoring and decompensated congestive heart failure requiring IV medication and fluid monitoring Ethel Carrillo MD Cardiovascular Medicine Personal Pager [phone] 06/12/2024 9:12 PM * PastorAlejandra, MUSIC ADAPTER - 06/11/2024 4:21 PM EST Images from [...] too aggressive, suggest ICR 1:6 (rule of [id number]/81 = 6.25). George is up and walking [...] ischemic cardiomyopathy with HFrEF (~30% EF), prior HI with stents, DM type 2, HTN, HLD, [...] ac, metformin 1000mg BID Alejandra Baumann APRN [facility] Endocrinology Diabetes Management Pager [phone] Weekends please page [phone] 35 minutes were spent over the course [...] PCP: Mauro Berumen MD PCP phone number: [phone] Date of Admission: 06/02/2024 ( Hospital Day 9 days ) Attending:Melida Valdes MD ID: 69 y.o. male with a h/o DM type 2, HTN, HLD, current smoker (2-3 cigarettes/day), HFrEF with anICD for low EF (~30%), and CAD with prior HI x3 with JENNA placed in [place], Melanoma, PAD, presented to [facility] with 1 hour of retrosternal CP (05/13) while watching TV, found to have STEMI. Active Problems: Active Hospital Problems Diagnosis STEMI (ST elevation myocardial infarction) Cardiac resynchronization therapy defibrillator (APPLICATION PENETRATION TESTER-D) - Medtronic Amplia Cardiomyopathy, ischemic Acute on chronic heart failure with reduced ejection fraction (HFrEF, <= 40%) Coronary artery disease involving chickaloon coronary artery of chickaloon heart without angina pectoris Type 2 diabetes [...] in the last 7068 hours. Invalid input(s): [id number] Recent Labs 06/11/24 0357 06/11/24 0050 06/10/24 1922 06/10/24 1735 06/10/24 1125 06/10/24 0746 06/10/24 0423 06/10/24 0005 06/09/24 2036 06/09/24 1727 06/09/24 1152 06/09/24 0810 POCGLU 132 144 236* 123 216* 206* 154 125 197 174 211* 209* Heme No results for input(s): LDH, HAPTOGLOBIN, URICACID in the last 168 hours. ABG (Arterial Blood Gas) No results found for: PHART, PO2ART, FJV3SRJ, IIJ9NFD Microbiology: Microbiology Results (Last 30 days) No results found for the last 720 hours. Imaging: Results for orders placed or performed during the hospital encounter of 06/02/24 XR Chest One View (Exam End: 06/03/2024 2:41 AM) Result Value WORKSTATION ID [id number] Impression No radiographically evident acute cardiopulmonary process. Thank you for letting us participate in the care of this patient. If you are a health care provider and have any questions regarding this report, please contact the number below. For patients who have questions please contact the health medicare sales representative that requested your imaging first. Cardiac Morphology Function wwo Contrast (Exam End: 06/07/2024 1:10 PM) Result Value WORKSTATION ID [id number] Impression - Findings consistent with an ischemic [...] - Mildly dilated left ventricle size with zybkxvyz-gc-kywhtexs decreased LV systolic function. LV ejection fraction [...] who have questions please contact the health medicare sales representative that requested your imaging first. Chest wo Contrast (Generic) (Exam End: 06/03/2024 4:33 PM) Result Value WORKSTATION ID [id number] Impression Cardiomegaly. Biventricular ICD leads in place. Thank you for letting us participate in the care of this patient. If you are a health care provider and have any questions regarding this report, please contact the number below. For patients who have questions please contact the health medicare sales representative that requested your imaging first. Chest PA & Lateral (Generic) (Exam End: 06/07/2024 7:03 AM) Result Value WORKSTATION ID [id number] Impression Biventricular ICD leads intact and in [...] who have questions please contact the health medicare sales representative that requested your imaging first. : Limited echo performed by fellow store person to assess LV function. Left ventricle [...] Infusions: heparin (porcine) infusion 1,400 Units/hr (06/10/24 1758) PRN Meds:.insulin lispro, glucose 40% oral geL [...] ischemic cardiomyopathy with HFrEF (~30% EF), prior HI with stents, DM type 2, HTN, HLD, [...] on placing this weekend and transfer to [facility], likely Friday. #ASCVD / STEMI: -Holding Plavix; continue ASA and heparin gtt. -Monitor telmetry -TTE -Viability planning per CT surgery - CT chest (complete) - Carotid duplex bilat (complete) - Cardiac MR (scheduled today Thursday 06/07) - Will need balloon pump prior to CABG on Friday, likely Friday then transfer to [facility] #HFrEF (Ischemic Cardiomyopathy): -Monitor I&O and [...] CODE Dain Colón MD Cardiology, M1-S2, Pager #[phone] 06/11/24 Associated attestation - Ethel Carrillo MD [...] (abstinent since admission), ASCVD with multiple prior HI and PCIs, ICM/HFrEF LVEF 30% (all territories [...] of two midnights or is on the [facility] inpatient only procedure list (status C) due to: acute myocardial infarction requiring titration of IV medication and fluid monitoring and decompensated congestive heart failure requiring IV medication and fluid monitoring Ethel Carrillo MD Cardiovascular Medicine Personal Pager [phone] 06/11/2024 9:35 PM * Hilary Belle - 06/10/2024 12:39 PM EST Nutrition Services Note George Mehta is a 69 y.o. male Reason for intervention: hospital day 9 Nutrition Plan: Continue diet order: 60/60/75 CHO Level 2 Encourage good PO Lasix and Insulin noted Monitor weight Patient scheduled for a hospital day 9 nutrition evaluation. Carbide Die Maker attempted to meet with pt at bedside [...] unless consulted in the interim. Hilary Belle Resource Recovery Specialist * Mariia Montero RN - 06/10/2024 12:23 PM EST I have met with the patient to: discuss discharge planning needs. provide the [facility], Office of Care Management letter from the Commodity Specialist pertaining to rehab referrals. provide a letter describing our affiliations within the [facility] and educate about their right to choose where referrals are sent. provide a list of Home Health Agencies / Durable Medical Equipment vendors which serve their preferred geographic area. provided patient with CMS Star Quality Rating handout. They have requested referrals to: [facility] [address] [place] [id number] RN / PT Anticipated d/c date: 06/20/24 Note routed to a Cake Batter Mixer who will communicate referrals to facilities and provide any required information. * Dain Colón MD - 06/10/2024 7:17 AM EST Images from the original note were not included. . Cardiology Progress Note Patient info: Name: George Mehta : 1955 PCP: Mauro Berumen MD PCP phone number: [phone] Date of Admission: 06/02/2024 ( Hospital Day 8 days ) Attending:Mleida Valdes MD ID: 69 y.o. male with a h/o DM type 2, HTN, HLD, current smoker (2-3 cigarettes/day), HFrEF with anICD for low EF (~30%), and CAD with prior HI x3 with JENNA placed in [place], Melanoma, PAD, presented to [facility] with 1 hour of retrosternal CP (05/13) while watching TV, found to have STEMI. Active Problems: Active Hospital Problems Diagnosis STEMI (ST elevation myocardial infarction) Cardiac resynchronization therapy defibrillator (APPLICATION PENETRATION TESTER-D) - Medtronic Amplia Cardiomyopathy, ischemic Acute on chronic heart failure with reduced ejection fraction (HFrEF, <= 40%) Coronary artery disease involving chickaloon coronary artery of chickaloon heart without angina pectoris Type 2 diabetes [...] in the last 7068 hours. Invalid input(s): [id number] Recent Labs 06/10/24 0423 06/10/24 0005 06/09/24 2036 06/09/24 1727 06/09/24 1152 06/09/24 0810 06/09/24 0440 06/09/24 0034 06/08/24 2027 06/08/24 1616 06/08/24 1235 06/08/24 0810 POCGLU 154 125 197 174 211* 209* 131 186 176 159 226* 190 Heme No results for input(s): LDH, HAPTOGLOBIN, URICACID in the last 168 hours. ABG (Arterial Blood Gas) No results found for: PHART, PO2ART, BBU9MZY, ENN7GMD Microbiology: Microbiology Results (Last 30 days) No results found for the last 720 hours. Imaging: Results for orders placed or performed during the hospital encounter of 06/02/24 XR Chest One View (Exam End: 06/03/2024 2:41 AM) Result Value WORKSTATION ID [id number] Impression No radiographically evident acute cardiopulmonary process. Thank you for letting us participate in the care of this patient. If you are a health care provider and have any questions regarding this report, please contact the number below. For patients who have questions please contact the health medicare sales representative that requested your imaging first. Cardiac Morphology Function wwo Contrast (Exam End: 06/07/2024 1:10 PM) Result Value WORKSTATION ID [id number] Impression - Findings consistent with an ischemic [...] - Mildly dilated left ventricle size with ltrauwut-vy-pvlxhmgh decreased LV systolic function. LV ejection fraction [...] who have questions please contact the health medicare sales representative that requested your imaging first. Chest wo Contrast (Generic) (Exam End: 06/03/2024 4:33 PM) Result Value WORKSTATION ID [id number] Impression Cardiomegaly. Biventricular ICD leads in place. Thank you for letting us participate in the care of this patient. If you are a health care provider and have any questions regarding this report, please contact the number below. For patients who have questions please contact the health medicare sales representative that requested your imaging first. Chest PA & Lateral (Generic) (Exam End: 06/07/2024 7:03 AM) Result Value WORKSTATION ID [id number] Impression Biventricular ICD leads intact and in [...] who have questions please contact the health medicare sales representative that requested your imaging first. : Limited echo performed by fellow store person to assess LV function. Left ventricle [...] ischemic cardiomyopathy with HFrEF (~30% EF), prior HI with stents, DM type 2, HTN, HLD, [...] on placing this weekend and transfer to [facility], likely Friday. #ASCVD / STEMI: -Holding Plavix; continue ASA and heparin gtt. -Consult CT surgery for potential open revascularization. -Monitor telmetry -TTE -Viability planning per CT surgery - CT chest (complete) - Carotid duplex bilat (complete) - Cardiac MR (scheduled today Thursday 06/07) - Will need balloon pump prior to CABG on Friday, likely Friday then transfer to [facility] #HFrEF (Ischemic Cardiomyopathy): -Monitor I&O and [...] CODE Dain Colón MD Cardiology, M1-S2, Pager #[phone] 06/10/24 Associated attestation - Melida Valdes MD [...] a lytic and brought directly to the World Geography Teacher. Cardiac catheterization demonstrated multivessel disease with severe [...] who is agreeable Melida Valdes MD Staff Evidence Custodian * Cherelle Fregoso, JOSÉ ANTONIO - 06/09/2024 [...] ischemic cardiomyopathy with HFrEF (~30% EF), prior HI with stents, DM type 2, HTN, HLD, [...] PCP: Mauro Berumen MD PCP phone number: [phone] Date of Admission: 06/02/2024 ( Hospital Day 7 days ) Attending:Melida Valdes MD ID: 69 y.o. male with a h/o DM type 2, HTN, HLD, current smoker (2-3 cigarettes/day), HFrEF with anICD for low EF (~30%), and CAD with prior HI x3 with JENNA placed in [place], Melanoma, PAD, presented to [facility] with 1 hour of retrosternal CP (05/13) while watching TV, found to have STEMI. Active Problems: Active Hospital Problems Diagnosis STEMI (ST elevation myocardial infarction) Acute on chronic heart failure with reduced ejection fraction (HFrEF, <= 40%) Coronary artery disease involving chickaloon coronary artery of chickaloon heart without angina pectoris Type 2 diabetes [...] in the last 7068 hours. Invalid input(s): [id number] Recent Labs 06/09/24 0440 06/09/24 0034 06/08/24 2027 06/08/24 1616 06/08/24 1235 06/08/24 0810 06/08/24 0409 06/07/24 2357 06/07/24 2005 06/07/24 1631 06/07/24 1105 06/07/24 1103 POCGLU 131 186 176 159 226* 190 151 188 118 174 221* 250* Heme No results for input(s): LDH, HAPTOGLOBIN, URICACID in the last 168 hours. ABG (Arterial Blood Gas) No results found for: PHART, PO2ART, ASC0KPM, NYG6XQX Microbiology: Microbiology Results (Last 30 days) No results found for the last 720 hours. Imaging: Results for orders placed or performed during the hospital encounter of 06/02/24 XR Chest One View (Exam End: 06/03/2024 2:41 AM) Result Value WORKSTATION ID [id number] Impression No radiographically evident acute cardiopulmonary process. Thank you for letting us participate in the care of this patient. If you are a health care provider and have any questions regarding this report, please contact the number below. For patients who have questions please contact the health medicare sales representative that requested your imaging first. Cardiac Morphology Function wwo Contrast (Exam End: 06/07/2024 1:10 PM) Result Value WORKSTATION ID [id number] Impression - Findings consistent with an ischemic [...] - Mildly dilated left ventricle size with ikavpirt-ku-zvpqhmve decreased LV systolic function. LV ejection fraction [...] who have questions please contact the health medicare sales representative that requested your imaging first. Chest wo Contrast (Generic) (Exam End: 06/03/2024 4:33 PM) Result Value WORKSTATION ID [id number] Impression Cardiomegaly. Biventricular ICD leads in place. Thank you for letting us participate in the care of this patient. If you are a health care provider and have any questions regarding this report, please contact the number below. For patients who have questions please contact the health medicare sales representative that requested your imaging first. Chest PA & Lateral (Generic) (Exam End: 06/07/2024 7:03 AM) Result Value WORKSTATION ID [id number] Impression Biventricular ICD leads intact and in [...] who have questions please contact the health medicare sales representative that requested your imaging first. : Limited echo performed by fellow store person to assess LV function. Left ventricle [...] Infusions: heparin (porcine) infusion 1,400 Units/hr (06/08/24 082) PRN Meds:.glucose 40% oral geL OR dextrose [...] ischemic cardiomyopathy with HFrEF (~30% EF), prior HI with stents, DM type 2, HTN, HLD, [...] CODE Dain Colón MD Cardiology, M1-S2, Pager #[phone] 06/09/24 Associated attestation - Melida Valdes MD [...] a lytic and brought directly to the World Geography Teacher. Cardiac catheterization demonstrated multivessel disease with severe [...] insertion low EF. Melida Valdes MD Staff Evidence Custodian * Alejandra Baumann, MUSIC ADAPTER - 06/08/2024 4:10 PM EST Images from [...] ischemic cardiomyopathy with HFrEF (~30% EF), prior HI with stents, DM type 2, HTN, HLD, [...] to optimize glucose control Alejandra Baumann APRN [facility] Endocrinology Diabetes Management Pager [phone] Weekends please page [phone] 35 minutes were spent over the course [...] PCP: Mauro Berumen MD PCP phone number: [phone] Date of Admission: 06/02/2024 ( Hospital Day 6 days ) Attending:Melida Valdes MD ID: 69 y.o. male with a h/o DM type 2, HTN, HLD, current smoker (2-3 cigarettes/day), HFrEF with anICD for low EF (~30%), and CAD with prior HI x3 with JENNA placed in [place], Melanoma, PAD, presented to [facility] with 1 hour of retrosternal CP (05/13) while watching TV, found to have STEMI. Active Problems: Active Hospital Problems Diagnosis STEMI (ST elevation myocardial infarction) Acute on chronic heart failure with reduced ejection fraction (HFrEF, <= 40%) Coronary artery disease involving chickaloon coronary artery of chickaloon heart without angina pectoris Type 2 diabetes [...] in the last 7068 hours. Invalid input(s): [id number] Recent Labs 06/08/24 0409 06/07/24 2357 06/07/24 2005 06/07/24 1631 06/07/24 1105 06/07/24 1103 06/07/24 0745 06/07/24 0425 06/07/24 0008 06/06/24 2018 06/06/24 1539 06/06/24 1339 POCGLU 151 188 118 174 221* 250* 175 127 182 143 147 317* Heme No results for input(s): LDH, HAPTOGLOBIN, URICACID in the last 168 hours. ABG (Arterial Blood Gas) No results found for: PHART, PO2ART, ZDT6RBU, HIW0TZB Microbiology: Microbiology Results (Last 30 days) No results found for the last 720 hours. Imaging: Results for orders placed or performed during the hospital encounter of 06/02/24 XR Chest One View (Exam End: 06/03/2024 2:41 AM) Result Value WORKSTATION ID [id number] Impression No radiographically evident acute cardiopulmonary process. Thank you for letting us participate in the care of this patient. If you are a health care provider and have any questions regarding this report, please contact the number below. For patients who have questions please contact the health medicare sales representative that requested your imaging first. Cardiac Morphology Function wwo Contrast (Exam End: 06/07/2024 1:10 PM) Result Value WORKSTATION ID [id number] Impression - Findings consistent with an ischemic [...] - Mildly dilated left ventricle size with nskmrerl-ks-atmktqof decreased LV systolic function. LV ejection fraction [...] who have questions please contact the health medicare sales representative that requested your imaging first. Chest wo Contrast (Generic) (Exam End: 06/03/2024 4:33 PM) Result Value WORKSTATION ID [id number] Impression Cardiomegaly. Biventricular ICD leads in place. Thank you for letting us participate in the care of this patient. If you are a health care provider and have any questions regarding this report, please contact the number below. For patients who have questions please contact the health medicare sales representative that requested your imaging first. Chest PA & Lateral (Generic) (Exam End: 06/07/2024 7:03 AM) Result Value WORKSTATION ID [id number] Impression Biventricular ICD leads intact and in [...] who have questions please contact the health medicare sales representative that requested your imaging first. : Limited echo performed by fellow store person to assess LV function. Left ventricle [...] ischemic cardiomyopathy with HFrEF (~30% EF), prior HI with stents, DM type 2, HTN, HLD, [...] CODE Dain Colón MD Cardiology, M1-S2, Pager #[phone] 06/08/24 Associated attestation - Melida Valdes MD [...] a lytic and brought directly to the World Geography Teacher. Cardiac catheterization demonstrated multivessel disease with severe [...] Otherwise clinically stable Melida Valdes MD Staff Evidence Custodian * Ross Manuel PA - 06/07/2024 12:00 PM EST Cardiac Electrophysiology CIED Interrogation/Programming Note Asked by MRI staff to evaluate and program Medtronic APPLICATION PENETRATION TESTER-D to allow for MR imaging. Patient Active Problem List Diagnosis ','STEMI (ST elevation myocardial infarction) Acute on chronic heart failure with reduced ejection fraction (HFrEF, <= 40%) Coronary artery disease involving chickaloon coronary artery of chickaloon heart without angina pectoris Type 2 diabetes mellitus Device Data: [employer] MRI Quad APPLICATION PENETRATION TESTER-D [id number] #[id number] 06/16/2019 RA Medtronic 4076 CapSureFix Novus [id number] 06/16/2019 RV Medtronic [id number] 06/16/2019 LV Medtronic 4298 Attain Performa MRI [id number] 06/16/2019 DDD @ 50/130/130 Adaptive Bi-V and LV VF >188bpm ATP, 35j x6 FVT >188-222bpm burst 2, 35jx5 VT Battery longevity: 2.5yrs; charge time 4s P wave: 2.3mV R wave: >20.0mV Atrial impedance: 458 ohms RV impedance: 646 ohms LV impedance: 722 ohms Atrial threshold: 0.5V @ 0.4ms RV threshold: LV threshold: 1.75V @ 0.4ms AP 0.2% ELECTRONICS TESTER 97.7% AT/AF 0% Impression and Plan: 1. Interrogated device to determine suitability for MRI 2. Programmed to MRI safe mode - VOO @ 70 3. Scan performed 4. Programming restored to baseline settings 5. Reinterrogated to verify appropriate function and settings 6. Device follow up as previously scheduled Provider: HENOK Meyer EP Consult attending physician: Libby Barton MD EP Consult positional pager #[phone](EPMD) EP Device interrogation positional pager # [phone] * Dain Colón MD - 06/07/2024 7:09 AM EST Images from the original note were not included. . Cardiology Progress Note Patient info: Name: George Mehta : 1955 PCP: Mauro Berumen MD PCP phone number: [phone] Date of Admission: 06/02/2024 ( Hospital Day 5 days ) Attending:Melida Valdes MD ID: 69 y.o. male with a h/o DM type 2, HTN, HLD, current smoker (2-3 cigarettes/day), HFrEF with anICD for low EF (~30%), and CAD with prior HI x3 with JENNA placed in [place], Melanoma, PAD, presented to [facility] with 1 hour of retrosternal CP (05/13) while watching TV, found to have STEMI. Active Problems: Active Hospital Problems Diagnosis STEMI (ST elevation myocardial infarction) Acute on chronic heart failure with reduced ejection fraction (HFrEF, <= 40%) Coronary artery disease involving chickaloon coronary artery of chickaloon heart without angina pectoris Type 2 diabetes [...] in the last 7068 hours. Invalid input(s): [id number] Recent Labs 06/07/24 0425 06/07/24 0008 06/06/24 2018 06/06/24 1539 06/06/24 1339 06/06/24 1134 06/06/24 0757 06/06/24 0653 06/05/24 2231 06/05/24 1622 06/05/24 1134 06/05/24 0727 POCGLU 127 182 143 147 317* 264* 195 187 238* 205* 211* 166 Heme No results for input(s): LDH, HAPTOGLOBIN, URICACID in the last 168 hours. ABG (Arterial Blood Gas) No results found for: PHART, PO2ART, NGQ2OHU, RMO0TOJ Microbiology: Microbiology Results (Last 30 days) No results found for the last 720 hours. Imaging: Results for orders placed or performed during the hospital encounter of 06/02/24 XR Chest One View (Exam End: 06/03/2024 2:41 AM) Result Value WORKSTATION ID [id number] Impression No radiographically evident acute cardiopulmonary process. Thank you for letting us participate in the care of this patient. If you are a health care provider and have any questions regarding this report, please contact the number below. For patients who have questions please contact the health medicare sales representative that requested your imaging first. Chest wo Contrast (Generic) (Exam End: 06/03/2024 4:33 PM) Result Value WORKSTATION ID [id number] Impression Cardiomegaly. Biventricular ICD leads in place. Thank you for letting us participate in the care of this patient. If you are a health care provider and have any questions regarding this report, please contact the number below. For patients who have questions please contact the health medicare sales representative that requested your imaging first. : Limited echo performed by fellow store person to assess LV function. Left ventricle [...] ischemic cardiomyopathy with HFrEF (~30% EF), prior HI with stents, DM type 2, HTN, HLD, [...] Dain Colón MD (PGY-1) Cardiology, M1-S2, Pager #[phone] 06/07/24 Associated attestation - Melida Valdes MD [...] a lytic and brought directly to the World Geography Teacher. Cardiac catheterization demonstrated multivessel disease with severe [...] for further guidance. Melida Valdes MD Staff Evidence Custodian * Dain Colón MD - 06/06/2024 7:17 AM EST Images from the original note were not included. . Cardiology Progress Note Patient info: Name: George Mehta : 1955 PCP: Mauro Berumen MD PCP phone number: [phone] Date of Admission: 06/02/2024 ( Hospital Day 4 days ) Attending:Melida Valdes MD ID: 69 y.o. male with a h/o DM type 2, HTN, HLD, current smoker (2-3 cigarettes/day), HFrEF with anICD for low EF (~30%), and CAD with prior HI x3 with JENNA placed in [place], Melanoma, PAD, presented to [facility] with 1 hour of retrosternal CP (05/13) while watching TV, found to have STEMI. Active Problems: Active Hospital Problems Diagnosis STEMI (ST elevation myocardial infarction) Acute on chronic heart failure with reduced ejection fraction (HFrEF, <= 40%) Coronary artery disease involving chickaloon coronary artery of chickaloon heart without angina pectoris Type 2 diabetes [...] in the last 7068 hours. Invalid input(s): [id number] Recent Labs 06/06/24 0653 06/05/24 2231 06/05/24 1622 06/05/24 1134 06/05/24 0727 06/04/24 1943 06/04/24 1526 06/04/24 1109 06/04/24 0711 06/03/24 2005 06/03/24 1748 06/03/24 1114 POCGLU 187 238* 205* 211* 166 175 154 188 182 136 191 166 Heme No results for input(s): LDH, HAPTOGLOBIN, URICACID in the last 168 hours. ABG (Arterial Blood Gas) No results found for: PHART, PO2ART, NQN5AVZ, RPW4YYH Microbiology: Microbiology Results (Last 30 days) No results found for the last 720 hours. Imaging: Results for orders placed or performed during the hospital encounter of 06/02/24 XR Chest One View (Exam End: 06/03/2024 2:41 AM) Result Value WORKSTATION ID [id number] Impression No radiographically evident acute cardiopulmonary process. Thank you for letting us participate in the care of this patient. If you are a health care provider and have any questions regarding this report, please contact the number below. For patients who have questions please contact the health medicare sales representative that requested your imaging first. Chest wo Contrast (Generic) (Exam End: 06/03/2024 4:33 PM) Result Value WORKSTATION ID [id number] Impression Cardiomegaly. Biventricular ICD leads in place. Thank you for letting us participate in the care of this patient. If you are a health care provider and have any questions regarding this report, please contact the number below. For patients who have questions please contact the health medicare sales representative that requested your imaging first. : Limited echo performed by fellow store person to assess LV function. Left ventricle [...] ischemic cardiomyopathy with HFrEF (~30% EF), prior HI with stents, DM type 2, HTN, HLD, [...] Dain Colón MD (PGY-1) Cardiology, M1-S2, Pager #[phone] 06/06/24 Associated attestation - Melida Valdes MD [...] a lytic and brought directly to the World Geography Teacher. Cardiac catheterization demonstrated multivessel disease with severe [...] management. Help appreciated Melida Valdes MD Staff Evidence Custodian * Frederick Dunn MD - 06/05/2024 8:13 AM EDT Images from the original note were not included. . Cardiology Progress Note Patient info: Name: George Mehta : 1955 PCP: Mauro Berumen MD PCP phone number: [phone] Date of Admission: 06/02/2024 ( Hospital Day 3 days ) Attending:Melida Valdes MD ID: 69 y.o. male with a h/o DM type 2, HTN, HLD, current smoker (2-3 cigarettes/day), HFrEF with anICD for low EF (~30%), and CAD with prior HI x3 with JENNA placed in [place], Melanoma, PAD, presented to [facility] with 1 hour of retrosternal [...] in the last 7068 hours. Invalid input(s): [id number] Recent Labs 06/05/24 1134 06/05/24 0727 06/04/24 1943 06/04/24 1526 06/04/24 1109 06/04/24 0711 06/03/24 2005 06/03/24 1748 06/03/24 1114 06/03/24 0754 06/02/24 2331 POCGLU 211* 166 175 154 188 182 136 191 166 195 156 Heme No results for input(s): LDH, HAPTOGLOBIN, URICACID in the last 168 hours. ABG (Arterial Blood Gas) No results found for: PHART, PO2ART, FNJ5ORM, XOM1CAE Microbiology: Microbiology Results (Last 30 days) No results found for the last 720 hours. Imaging: Results for orders placed or performed during the hospital encounter of 06/02/24 XR Chest One View (Exam End: 06/03/2024 2:41 AM) Result Value WORKSTATION ID [id number] Impression No radiographically evident acute cardiopulmonary process. Thank you for letting us participate in the care of this patient. If you are a health care provider and have any questions regarding this report, please contact the number below. For patients who have questions please contact the health medicare sales representative that requested your imaging first. Chest wo Contrast (Generic) (Exam End: 06/03/2024 4:33 PM) Result Value WORKSTATION ID [id number] Impression Cardiomegaly. Biventricular ICD leads in place. Thank you for letting us participate in the care of this patient. If you are a health care provider and have any questions regarding this report, please contact the number below. For patients who have questions please contact the health medicare sales representative that requested your imaging first. : Limited echo performed by fellow store person to assess LV function. Left ventricle [...] ischemic cardiomyopathy with HFrEF (~30% EF), prior HI with stents, DM type 2, HTN, HLD, [...] all the information they need regarding the APPLICATION PENETRATION TESTER-D.Plan for MRI tomorrow. Starting 40 mg IV [...] a lytic and brought directly to the World Geography Teacher. Cardiac catheterization demonstrated multivessel disease with severe [...] maintenance of 40. Melida Valdes MD Staff Evidence Custodian * Migel Javier RN - 06/05/2024 6:21 AM EDT Implanted device record scanned into: Chart Review-->Media-->External Cardiology-->03/25/2024. Medtronic Dittoia MRI Quad CRTD [id number] Serial #: [id number] DDD mode A + Bi/V Rates 50-130 Migel Javier RN * Dain Colón MD - 06/04/2024 11:16 AM EDT Implant Records Requested Type: APPLICATION PENETRATION TESTER-D Patient Care: Medtronic Product: [id number] Amplia MRI MRI compatibility: Compatible for 1.5-3 T Model #: [id number] Placed at: [place], [place] Records requested for MRI: 1. Operative report 2. Implant log I requested that these records be sent to our MRI department, Dain Colón MD 06/04/24 11:58 AM * Dain Colón MD - 06/04/2024 6:57 AM EDT Images from the original note were not included. . Cardiology Progress Note Patient info: Name: George Mehta : 1955 PCP: Mauro Berumen MD PCP phone number: [phone] Date of Admission: 06/02/2024 ( Hospital Day 2 days ) Attending:Delroy Fofana MD ID: 69 y.o. male with a h/o DM type 2, HTN, HLD, current smoker (2-3 cigarettes/day), HFrEF with anICD for low EF (~30%), and CAD with prior HI x3 with JENNA placed in [place], Melanoma, PAD, presented to [facility] with 1 hour of retrosternal [...] in the last 7068 hours. Invalid input(s): [id number] Recent Labs 06/03/24 2005 06/03/24 1748 06/03/24 1114 06/03/24 0754 06/02/24 2331 POCGLU 136 191 166 195 156 Heme No results for input(s): LDH, HAPTOGLOBIN, URICACID in the last 168 hours. ABG (Arterial Blood Gas) No results found for: PHART, PO2ART, LJX1WMC, RQG9QNX Microbiology: Microbiology Results (Last 30 days) No results found for the last 720 hours. Imaging: Results for orders placed or performed during the hospital encounter of 06/02/24 XR Chest One View (Exam End: 06/03/2024 2:41 AM) Result Value WORKSTATION ID [id number] Impression No radiographically evident acute cardiopulmonary process. Thank you for letting us participate in the care of this patient. If you are a health care provider and have any questions regarding this report, please contact the number below. For patients who have questions please contact the health medicare sales representative that requested your imaging first. Chest wo Contrast (Generic) (Exam End: 06/03/2024 4:33 PM) Result Value WORKSTATION ID [id number] Impression Cardiomegaly. Biventricular ICD leads in place. Thank you for letting us participate in the care of this patient. If you are a health care provider and have any questions regarding this report, please contact the number below. For patients who have questions please contact the health medicare sales representative that requested your imaging first. : Limited echo performed by fellow store person to assess LV function. Left ventricle [...] ischemic cardiomyopathy with HFrEF (~30% EF), prior HI with stents, DM type 2, HTN, HLD, [...] -Lasix 40 mg IV given in the prosthetics lab technician; assess diuretic response, consider re-dosing [...] a lytic and brought directly to the World Geography Teacher. Cardiac catheterization demonstrated multivessel disease with severe [...] Friday -Diuresis with Jovanni Valdes MD Staff Evidence Custodian * Fatmata Mcallister PT - 06/03/2024 3:29 [...] vs PCI) Fatmata Mcallister PT, MSPT Pager [phone] Inpatient Physical Therapy * Marlin Gómez MD [...] Marlin Gómez MD Cardiology S2, Pager # [phone] 06/03/2024 * Delroy Fofana MD - 06/03/2024 7:16 AM EDT Images from the original note were not included. . Cardiology Progress Note Patient info: Name: George Mehta : 1955 PCP: Mauro Berumen MD PCP phone number: [phone] Date of Admission: 06/02/2024 ( Hospital Day 1 day ) Attending:Nuha Rojo MD ID: 69 y.o. male with a h/o DM type 2, HTN, HLD, current smoker (2-3 cigarettes/day), HFrEF with anICD for low EF (~30%), and CAD with prior HI x3 with JENNA placed in [place], Melanoma, PAD, presented to [facility] with 1 hour of retrosternal [...] in the last 7068 hours. Invalid input(s): [id number] Recent Labs 06/02/24 2331 POCGLU 156 Heme No results for input(s): LDH, HAPTOGLOBIN, URICACID in the last 168 hours. ABG (Arterial Blood Gas) No results found for: PHART, PO2ART, WTK1LZK, WHI0PGA Microbiology: Microbiology Results (Last 30 days) No results found for the last 720 hours. Imaging: Results for orders placed or performed during the hospital encounter of 06/02/24 XR Chest One View (Exam End: 06/03/2024 2:41 AM) Result Value WORKSTATION ID [id number] Impression No radiographically evident acute cardiopulmonary process. Thank you for letting us participate in the care of this patient. If you are a health care provider and have any questions regarding this report, please contact the number below. For patients who have questions please contact the health medicare sales representative that requested your imaging first. : Limited echo performed by fellow store person to assess LV function. Left ventricle [...] ischemic cardiomyopathy with HFrEF (~30% EF), prior HI with stents, DM type 2, HTN, HLD, [...] -Lasix 40 mg IV given in the prosthetics lab technician; assess diuretic response, consider re-dosing [...] plan of care per Dain Colón MD (director of graduate medical education). Please refer to his note above for details. Very pleasant 69 year old male but he is obese, diabetic, and he is a SMOKER with known prior CAD and moderately reduced LVEF (30%). He has a pacer. History of surgical resection of melanoma on his head. The patient was transferred overnight to [facility] as a STEMI. He was treated initially with a lytic (TNK) and brought directly to the prosthetics lab technician. The cath demonstrated 3VD with [...] - 06/13/2024 10:58 AM EST ICU Blue (#[id number]) H&P Patient info: Name: George Mehta : 1955 PCP: Mauro Berumen MD PCP phone number: [phone] Date of Admission: 06/02/2024 ( Hospital Day 11 days ) Attending:Haja Byrnes MD ID: George Mehta is a 69 y.o. male with a h/o DM type 2, HTN, HLD, current smoker (2-3 cigarettes/day), HFrEF with an ICD for low EF (~30%), and CAD with prior HI x3 with JENNA placed in [place], [facility], [facility], presented to [facility] with 1 hour of retrosternal CP (05/13) while watching TV, foundto have STEMI. HPI: Shahnaz Scanlon H&P 06/02 69 y.o. male with a h/o DM type 2, HTN, HLD, current smoker (2-3 cigarettes/day), HFrEF with an ICD for low EF (~30%), and CAD with prior HI x3 with JENNA placed in [place], [facility], PAD, presented to [facility] with 1 hour of retrosternal CP (05/13) while watching TV. CP was non-radiating, not asso ciated with diaphoresis, nausea, or SOB. Denies orthopnea, MARTÍNEZ, palpitations, or LE edema. ECG showed findings consistent with anterior STEMI. He received TNK and was transferred for PCI. Coronary angiography showed a small, non-dominant RCA with gyxp-fb-jzpyzsyj disease and a dominant,heavily calcified left system with prior stents in the LAD and OM. The LM bifurcates into the LAD and LCX, both heavily calcified. The proximal LCX has a 75% calcified, aneurysmal lesion, and an 80% calcified lesion distally before a large OM2. OM1 is a COVERAGE ANALYST with in-stent restenosis, filling retrograde via collaterals. [...] 40 mg Lasix was administered in the prosthetics lab technician. Cardiac surgery was consulted and [...] Blood Gas) No results for input(s): PHART, NVH0WJV, PO2ART, EDN4KVL, LACTATEVEN, HFN0OHB, PFRATIOART2 in the last 168 hours. VBG (Venous Blood Gas) Recent Labs 06/10/24 1742 PHVEN 7.34 PO2VEN 24 ZON4CNM 27.4 Mixed Venous Sat No results for input(s): S0SARL1 in the last 168 hours. Intake/Output Summary [...] in the last 7068 hours. Invalid input(s): MXLCMLRJLLH3W Recent Labs 06/13/24 0741 06/13/24 0325 06/12/24 2353 06/12/24 1932 06/12/24 1541 06/12/24 1121 06/12/24 0800 06/12/24 0425 06/11/24 2356 06/11/24 2025 06/11/24 1624 06/11/24 1108 POCGLU 126 99 141 158 113 207* 169 132 135 210* 81 233* Heme No results for input(s): LDH, HAPTOGLOBIN, URICACID in the last 168 hours. ABG (Arterial Blood Gas) No results for input(s): PHART, AJK6PKU, PO2ART, VNS2FQN, LACTATEVEN, BDU1HSM, PFRATIOART2 in the last 168 hours. VBG (Venous Blood Gas) Recent Labs 06/10/24 1742 PHVEN 7.34 PO2VEN 24 XVG5KLF 27.4 Mixed Venous Sat No results for input(s): B6DQRR9 in the last 168 hours. Microbiology: Microbiology Results (Last 30 days) No results found for the last 720 hours. Assessment & Plan: George Mehta is a 69 y.o. male with CAD, ischemic cardiomyopathy with HFrEF (~30% EF), prior HI with stents, DM type 2, HTN, HLD, [...] (Give Meds) Daily Healthy Menu Choices/Cardiac diet ([facility]-Diet) DVT Prophylaxis: SCD GI [...] TUD (abstinent since admission), ASCVD with multipleprior HI and PCIs, ICM/HFrEF LVEF 30% (all territories [...] is in the chart Rebeca Prado MD Master Printer PGY6 [id number] * Shahnaz Scanlon MD - [...] low EF (~30%), and CAD with prior HI x3 with JENNA placed in [place], [facility], PAD, presented to [facility] with 1 hour of retrosternal CP (05/13) while watching TV. CP was non-radiating, not assoc iated with diaphoresis, nausea, or SOB. Denies orthopnea, MARTÍNEZ, palpitations, or LE edema. ECG showed findings consistent with anterior STEMI. He received TNK and was transferred for PCI. Coronary angiography showed a small, non-dominant RCA with nazz-he-zkxkhyqp disease and a dominant,heavily calcified left system with prior stents in the LAD and OM. The LM bifurcates into the LAD and LCX, both heavily calcified. The proximal LCX has a 75% calcified, aneurysmal lesion, and an 80% calcified lesion distally before a large OM2. OM1 is a COVERAGE ANALYST with in-stent restenosis, filling retrograde via collaterals. [...] 40 mg Lasix was administered in the prosthetics lab technician. Past Medical History: As per [...] Affect: Mood normal. Behavior: Behavior normal. Diagnostics: [facility] 06/02/2024 Coronary angiography revealed small non [...] ischemic cardiomyopathy with HFrEF (~30% EF), prior HI with stents, DM type 2, HTN, HLD, [...] -Lasix 40 mg IV given in the prosthetics lab technician; assess diuretic response. -Continue carvedilol; [...] & Follow-up Care: Contact information for follow-up [facility] [address] [facility] [address] Cardiac Rehab, [address] [facility] [address] JAMIE GRAMAJO confirmed with [facility] that they [...] Roberts RN - 06/18/2024 10:50 AM EST [facility] CARDIAC REHABILITATION George Mehta was seen today regarding participation in the outpatient Phase 2 Cardiac Rehabilitation at [facility]. The patient agrees to a [...] Agency/Support Group Needs: Homecare agency Agency Choices: [facility] Home Health Services: Medication checks, Registered Nurse, Physical Therapy Agency Referrals: pending clinical course and PT/OT recs [facility] [address] [facility] [address] PHONE: [phone] FAX: [phone] Transportation: family or friend will provide Barriers [...] recs Patient is insured through: Primary Insurance: [facility] Miew MEDICARE Payor: [facility] MANAGED MEDICARE / Plan: [facility] MANAGED MEDICARE COMPLETE / Product Type: *No Product type* / Secondary Insurance: N/A Plan for discharge is: Home w/ Services Outpatient Agency/Support Group Needs: Homecare agency Agency Choices: [facility]: Medication checks, Registered Nurse, Physical Therapy Agency Referrals: pending clinical course and PT/OT recs [facility] [address] [place] [address] PHONE: [phone] FAX: [phone] Transportation: family or friend will provide Barriers [...] Loja MD - 06/14/2024 8:48 AM EST [facility] Operative Note Patient Name: George Mehta : [id number] MR#: [id number] Case Date: 06/14/2024 Surgeon: Surgeons and Role: * Bobby Loja MD - Primary * Rashi Bass PA - Physician Quality Assurance Engineer Preoperative diagnosis: CAD, MARIALUISA flickering mass [...] procedures today and tomorrow. Report called to [facility] - all belongings with patient. PLAN MOVING FORWARD: labeler and transfer to [facility]. INDIVIDUALIZED FALL PREVENTION [...] No Patient is insured through: Primary Insurance: [facility] MANAGED MEDICARE Payor: [facility] MANAGED MEDICARE / Plan: [facility] MANAGED MEDICARE COMPLETE / Product Type: *No Product type* / Secondary Insurance: N/A Plan for discharge is: Home w/ Services Outpatient Agency/Support Group Needs: Homecare agency, Agency Choices: [facility] Home Health Services: Medication checks, Registered Nurse, Physical Therapy Agency Referrals: [facility] [address] [place] [address] RN / PT Routed 06/10 Transportation: family [...] with home health services when medically ready. reimbursement liaison/Torque Tester will continue to follow patient???s progress and remain available if situation changes for coordination of care, psychosocial support and/or discharge planning. Anticipated Date of Discharge: 06/18/2024 Mariia Montero RN Extension [phone] * Plan of Care - Migel Javier [...] No Patient is insured through: Primary Insurance: [facility] [employer] MANAGED MEDICARE Payor: [facility] MANAGED MEDICARE / Plan: [facility] M[employer] MEDICARE COMPLETE / Product Type: *No Product [...] consult for high risk PCI vs CABG reimbursement liaison/Torque Tester will continue to follow patient???s progress and remain available if situation changes for coordination of care, psychosocial support and/or discharge planning. Anticipated Date of Discharge: 06/11/2024 Mariia Montero RN Extension [phone] * Plan of Care - Becca Hope [...] ischemic cardiomyopathy with HFrEF (~30% EF), prior HI with stents, DM type 2, HTN, HLD, [...] CABG and to provide a review of alf diabetes care. Diabetes History: George Mehta has [...] Breakfast- varies - eggs with khoury or thai muffin Lunch- turkey sandwich Supper- meat and [...] Infusions: heparin (porcine) infusion 1,400 Units/hr (06/06/24 2870) PRN: insulin lispro, potassium chloride ER OR [...] ischemic cardiomyopathy with HFrEF (~30% EF), prior HI with stents, DM type 2, HTN, HLD, [...] Baumann APRN Endocrinology Diabetes Management Service Pager: [phone] Weekends please page [phone] 80 minute visit was spent in counseling [...] y.o. male with a PMHx of previous HI s/p PCI x3, ICM/HFrEF (LVEF 30%) s/p ICD, DMII, HTN, HLD, remote melanoma, and smoker who presented to [facility] last night via EMS after developing acute, severe chest pain while watching TV. Patient was ruled in for STEMI, given TNK, ASA, plavix, heparin gtt, and sent to [facility] for coronary angiography. LHC demonstrated severely calcified left coronary system with notable LCx 75/80% lesions and COVERAGE ANALYST OM1 with ISR with collateral retrograde filling, [...] elevation myocardial infarction) Past Medical History: previous HI s/p PCI x3 ICM/HFrEF (LVEF 30%) s/p [...] is large. OM1 appears to be a COVERAGE ANALYST, with in stentrestenosis and fills retrograde via [...] y.o. male admitted with STEMI s/p TNK, [facility] showing multivessel CAD including ISR, no [...] Treviño PA-C [facility] Section of Cardiac Surgery Date: 06/03/2024 * Initial Assessments - Catina Estrada MSW - 06/03/2024 10:32 AM EDT Office of Care Management Initial Assessment CHINA Humphrey reviewed record and discussed patient with Care Team. Source of Information: Team, bedside nurse, medical record, and Patient PLASTICS SCIENTIST Introduced self/reviewed role; services accepted. Admitted From: [...] care in [place] must abide by [place] law. The hierarchy [...] (i) The agent with financial power of defense attorney or a conservator appointed in [...] has the electric, gas, oil, or water [employer] threatened to shut off services in your [...] in the bathroom) Home Address confirmed as: [address] [place] [address] [address] [facility] [address] Social & Family Supports: All names listed [...] Pertinent/Service Specific Information: Health/Prescription Coverage: Primary Insurance: [facility] MEDICARE Payor: [facility] MEDICARE / Plan: [employer] MANAGED MEDICARE COMPLETE / Product Type: *No Product type* / Secondary Insurance: N/A ; Prescription Coverage: Yes Preferred Pharmacy: [id number] - [facility] [place] - [address] [facility] [address] [place] [id number] Status: Patient is a : No Primary Care Provider confirmed: Mauro Berumen MD [phone] Patient/Caregiver Goals of Treatment: Potential Needs for [...] care as indicated. CH[facility] Min Cardiology, [phone]. [phone] * Brief Op Note - Angeles Gaxiola PA - 06/03/2024 12:23 AM EDT Preliminary Cardiac Catheterization Procedure Note: Patient Name: George Mehta : [id number] MR#: [id number] Case Date: 06/02/2024 - 06/03/2024 Cloth Roll Winder: Surgeons and Role: * Nuha Shen MD - Primary * Angeles Gaxiola PA - Physician Quality Assurance Engineer Preoperative diagnosis: STEMI Postoperative diagnosis: * STEMI * Procedure(s) performed: RRA access [facility] Coronary angiogram IVUS LM/LAD/LCX Access: 6 Fr RRA A time-out was conducted prior to the start of the procedure to verify the correct patient and procedure, procedure location, and all relevant critical information. Preliminary findings: 69 year old current smoker (1-2 cigarette's per day), DM type 2, hypertension, dyslipidemia, ICD for HFrEF/low EF (~30%), CAD with prior HI and 3 stents historically (in [place]) who presented to [facility] with 1 hour of rest [...] is large. OM1 appears to be a COVERAGE ANALYST, with in stentrestenosis and fills retrograde via [...] receive 40 mg of lasix in the prosthetics lab technician. Recommendations: surgical consult for possible [...] PM EST Office Visit Cardiology at [address] [address] Moi Falcon MD [facility] [place] [address] Scheduled Orders Name Type Priority Associated Diagnoses [...] 7:20 AM EST Coronary artery disease involving chickaloon coronary artery of chickaloon heart without angina pectoris POC, GLUCOSE Routine [...] * POC, GLUCOSE (06/21/2024 3:51 AM EST) [facility] Signature Glucometer, POC 142 65 - 199 mg/dL 06/21/2024 3:[address] [facility] Comment:Supplemental ranges: <140 mg/dL before meals <180 mg/dL all other times of the day. Blood CAPILLARY BLOOD / Unknown 06/21/2024 3:51 AM EST 06/21/2024 3:51 AM EST Bobby Loja MD POINT OF CARE TEST O NIKA [facility] [place] [address] * (ABNORMAL) Basic Metabolic Panel (06/21/2024 2:09 AM EST) Glucose 169 65 - 199 mg/dL 06/21/2024 3:10 AM [facility] Comment:Glucose Concentratio n >=200 mg/dL plus symptoms is consistent with Diabetes Mellitus. Blood Urea Nitrogen 27(H) 10 - 20 mg/dL 06/21/2024 3:10 AM [facility] Creatinine 1.24 0.80 - 1.50 mg/dL 06/21/2024 3:10 AM [facility] Sodium [...] Address City/[facility]/ZIP Co de Phone Number [facility] [place] [address] * POC, GLUCOSE (06/21/2024 12:04 AM EST) [...] Organization Address [facility] Co de Phone Number [facility] [place] [address] * POC, GLUCOSE (06/20/2024 11:14 PM EST) [...] Address City/[facility]/ZIP Co de Phone Number [facility] [place] [address] * POC, GLUCOSE (06/20/2024 7:16 PM EST) Glucometer, POC 132 65 - 199 mg/dL 06/20/2024 7:[address] [facility] Comment:Supplemental ranges: <140 mg/dL before meals <180 mg/dL all other times of the day. Blood CAPILLARY BLOOD / Unknown 06/20/2024 7:16 PM EST 06/20/2024 7:16 PM EST Bobby Loja MD POINT OF CARE TEST O NIKA [facility] [place] [address] * POC, GLUCOSE (06/20/2024 3:39 PM EST) [...] Address City/[facility]/ZIP Co de Phone Number [facility] [place] [address] * POC, GLUCOSE (06/20/2024 12:02 PM EST) Glucometer, POC 173 65 - 199 mg/dL 06/20/2024 12:[address] [facility] Comment:Supplemental ranges: <140 mg/dL before meals <180 mg/dL all other times of the day. Blood CAPILLARY BLOOD / Unknown 06/20/2024 12:02 PM EST 06/20/2024 12:03 PM EST Bobby Loja MD POINT OF CARE TEST O NIKA [facility] [place] [address] * POC, GLUCOSE (06/20/2024 7:10 AM EST) Glucometer, POC 130 65 - 199 mg/dL 06/20/2024 7:[address] [facility] Comment:Supplemental ranges: <140 mg/dL before meals <180 mg/dL all other times of the day. Blood CAPILLARY BLOOD / Unknown 06/20/2024 7:10 AM EST 06/20/2024 7:11 AM EST Bobby Loja MD POINT OF CARE TEST O RDERABLES [facility] [place] [address] * (ABNORMAL) Basic Metabolic Panel (06/20/2024 2:28 [...] mL/min/1. 73 m?? 06/20/2024 3:[address] [facility] Comment: [...] Address City/[facility]/ZIP Co de Phone Number [facility] [place] [address] * POC, GLUCOSE (06/20/2024 12:32 AM EST) Glucometer, POC 86 65 - 199 mg/dL 06/20/2024 12:[address] [facility] Comment:Supplemental ranges: <140 mg/dL before meals <180 mg/dL all other times of the day. Blood CAPILLARY BLOOD / Unknown 06/20/2024 12:32 AM EST 06/20/2024 12:32 AM EST Bobby Loja MD POINT OF CARE TEST O RDERABLES [facility] [place] [address] * (ABNORMAL) POC, GLUCOSE (06/20/2024 12:02 AM [...] TEST O NIKA Performing Organization Address City/[facility] Co de Phone Number [facility] [place] [address] * POC, GLUCOSE (06/19/2024 8:15 PM EST) [...] Organization Address [facility] Co de Phone Number [facility] [place] [address] * POC, GLUCOSE (06/19/2024 6:01 PM EST) [...] TEST O NIKA Performing Organization Address City/[facility] Co de Phone Number [facility] [place] [address] * POC, GLUCOSE (06/19/2024 4:51 PM EST) [...] Address City/[facility]/ZIP Co de Phone Number [facility] [place] [address] * POC, GLUCOSE (06/19/2024 12:37 PM EST) [...] Address City/[facility]/ZIP Co de Phone Number [facility] [place] [address] * POC, GLUCOSE (06/19/2024 11:20 AM EST) Glucometer, POC 185 65 - 199 mg/dL 06/19/2024 11:[address] [facility] Comment:Supplemental ranges: <140 mg/dL before meals <180 mg/dL all other times of the day. Blood CAPILLARY BLOOD / Unknown 06/19/2024 11:20 AM EST 06/19/2024 11:21 AM EST Bobby Loja MD POINT OF CARE TEST O NIKA [facility] [place] [address] * POC, GLUCOSE (06/19/2024 7:21 AM EST) Glucometer, POC 125 65 - 199 mg/dL 06/19/2024 7:[address] [facility] Comment:Supplemental ranges: <140 mg/dL before meals <180 mg/dL all other times of the day. Blood CAPILLARY BLOOD / Unknown 06/19/2024 7:21 AM EST 06/19/2024 7:22 AM EST Bobby Loja MD POINT OF CARE TEST O NIKA [facility] [place] [address] * POC, GLUCOSE (06/19/2024 4:52 AM EST) [...] Organization Address [facility]/ZIP Co de Phone Number [facility] [place] [address] * POC, GLUCOSE (06/19/2024 4:13 AM EST) Glucometer, POC 67 65 - 199 mg/dL 06/19/2024 4:[address] [facility] Comment:Supplemental ranges: <140 mg/dL before meals <180 mg/dL all other times of the day. Blood CAPILLARY BLOOD / Unknown 06/19/2024 4:13 AM EST 06/19/2024 4:13 AM EST Bobby Loja MD POINT OF CARE TEST O NIKA [facility] [place] [address] * (ABNORMAL) POC, GLUCOSE (06/19/2024 3:48 AM EST) Glucometer, POC 51(LLL) 65 - 199 mg/dL 06/19/2024 3:[address] [facility] Comment:Supplemental ranges: <140 mg/dL before meals <180 mg/dL all other times of the day. Blood CAPILLARY BLOOD / Unknown 06/19/2024 3:48 AM EST 06/19/2024 3:48 AM EST Bobby Loja MD POINT OF CARE TEST O RDERABLES [facility] [place] [address] * (ABNORMAL) Basic Metabolic Panel (06/19/2024 3:44 [...] - 10.5 mg/dL 06/19/2024 4:[address] [facility] Est Glomerular Filtration Rate - Male 61 mL/min/1. 73 m?? 06/19/2024 4:[address] [facility] Comment: [...] Address City/[facility]/ZIP Co de Phone Number [facility] [place] [address] * POC, GLUCOSE (06/19/2024 12:23 AM EST) Glucometer, POC 82 65 - 199 mg/dL 06/19/2024 12:[address] [facility] Comment:Supplemental ranges: <140 mg/dL before meals <180 mg/dL all other times of the day. Blood CAPILLARY BLOOD / Unknown 06/19/2024 12:23 AM EST 06/19/2024 12:23 AM EST Bobby Loja MD POINT OF CARE TEST O RDERABLES [facility] [place] [address] * POC, GLUCOSE (06/18/2024 11:08 PM EST) Glucometer, POC 73 65 - 199 mg/dL 06/18/2024 11:[address] [facility] Comment:Supplemental ranges: <140 mg/dL before meals <180 mg/dL all other times of the day. Blood CAPILLARY BLOOD / Unknown 06/18/2024 11:08 PM EST 06/18/2024 11:08 PM EST Bobby Loja MD POINT OF CARE TEST O NIKA [facility] [place] [address] * POC, GLUCOSE (06/18/2024 7:32 PM EST) [...] Address City/[facility]/ZIP Co de Phone Number [facility] [place] [address] * POC, GLUCOSE (06/18/2024 6:08 PM EST) Glucometer, POC 140 65 - 199 mg/dL 06/18/2024 6:[address] [facility] Comment:Supplemental ranges: <140 mg/dL before meals <180 mg/dL all other times of the day. Blood CAPILLARY BLOOD / Unknown 06/18/2024 6:08 PM EST 06/18/2024 6:09 PM EST Bobby Loja MD POINT OF CARE TEST O NIKA [facility] [place] [address] * POC, GLUCOSE (06/18/2024 4:17 PM EST) Glucometer, POC 144 65 - 199 mg/dL 06/18/2024 4:[address] [facility] Comment:Supplemental ranges: <140 mg/dL before meals <180 mg/dL all other times of the day. Blood CAPILLARY BLOOD / Unknown 06/18/2024 4:17 PM EST 06/18/2024 4:17 PM EST Bobby Loja MD POINT OF CARE TEST O NIKA [facility] [place] [address] * POC, GLUCOSE (06/18/2024 12:09 PM EST) [...] Address City/[facility]/ZIP Co de Phone Number [facility] [place] [address] * POC, GLUCOSE (06/18/2024 7:49 AM EST) Glucometer, POC 125 65 - 199 mg/dL 06/18/2024 7:[address] [facility] Comment:Supplemental ranges: <140 mg/dL before meals <180 mg/dL all other times of the day. Blood CAPILLARY BLOOD / Unknown 06/18/2024 7:49 AM EST 06/18/2024 7:50 AM EST Bobby Loja MD POINT OF CARE TEST O NIKA [facility] [place] [address] * (ABNORMAL) Basic Metabolic Panel (06/18/2024 4:19 [...] Organization Address [facility]/ZIP Co de Phone Number [facility] [place] [address] * POC, GLUCOSE (06/18/2024 3:50 AM EST) [...] Organization Address [facility] Co de Phone Number [facility] [place] [address] * POC, GLUCOSE (06/17/2024 11:10 PM EST) [...] Address City/[facility]/ZIP Co de Phone Number [facility] [place] [address] * POC, GLUCOSE (06/17/2024 7:54 PM EST) [...] Organization Address [facility] Co de Phone Number [facility] [place] [address] * POC, GLUCOSE (06/17/2024 4:07 PM EST) [...] Organization Address [facility] de Phone Number [facility] [place] [address] * XR Chest PA & Lateral (Generic) (06/17/2024 1:46 PM EST) WORKSTATION ID [id number] RAD Anatomical Region Laterality Modality Chest N/A [...] who have questions please contact the health medicare sales representative that requested your imaging first. ? Narrative [...] patients who have questions please contactthe health medicare sales representative that requested your imaging first. Keila Hanley [...] Organization Address [facility] Co de Phone Number [facility] [place] [address] * POC, GLUCOSE (06/17/2024 7:49 AM EST) [...] Organization Address [facility] Co de Phone Number [facility] [place] [address] * POC, GLUCOSE (06/17/2024 4:16 AM EST) Glucometer, POC 139 65 - 199 mg/dL 06/17/2024 4:[address] [facility] Comment:Supplemental ranges: <140 mg/dL before meals <180 mg/dL all other times of the day. Blood CAPILLARY BLOOD / Unknown 06/17/2024 4:16 AM EST 06/17/2024 4:17 AM EST Bobby Loja MD POINT OF CARE TEST O NIKA [facility] [place] [address] * Lactate, Whole Blood (06/17/2024 2:39 AM EST) [facility] Lactate, Whole Blood 1.3 0.5 - 2.2 mmol/L 06/17/2024 2:[address] [facility] Blood VENOUS BLOOD SPECIMEN / Unknown Venipuncture / Unknown 06/17/2024 2:39 AM EST 06/17/2024 2:43 AM EST Bobby Loja MD CHEMISTRY ORDERABLES Performing Organization Address City/[facility]/ZIP Co de Phone Number [facility] [place] [address] * (ABNORMAL) Hemogram (06/17/2024 2:39 AM EST) [facility] White Blood Cell 13.53(H) 4.00 - 9.50 [...] 357 x10(3)/mc L 06/17/2024 2:[address] [facility] Mean Platelet Volume 10.4 7.6 [...] HEMATOLOGY ORDERABLE S [facility] [place] [address] * (ABNORMAL) Basic Metabolic Panel (06/17/2024 2:39 [...] - 107 mMol/L 06/17/2024 3:[address] [facility] Carbon Dioxide 23 22 - 31 mMol/L 06/17/2024 3:[address] [facility] Anion Gap 9 5 - 15 mMol/L 06/17/2024 3:14 AM [facility] Calcium 8.8 8.5 - 10.5 mg/dL 06/17/2024 3:[address] [facility] Est [...] MD CHEMISTRY ORDERABLES [facility] [place] [address] * (ABNORMAL) POC, GLUCOSE (06/17/2024 12:13 AM EST) [facility] Signature Glucometer, POC 211(H) 65 - 199 mg/dL 06/17/2024 12:[address] [facility] Comment:Supplemental ranges: <140 mg/dL before meals <180 mg/dL all other times of the day. Blood CAPILLARY BLOOD / Unknown 06/17/2024 12:13 AM EST 06/17/2024 12:14 AM EST Bobby Loja MD POINT OF CARE TEST O NIKA Performing Organization Address [facility] Co de Phone Number [facility] [place] [address] * (ABNORMAL) POC, GLUCOSE (06/16/2024 7:22 PM [...] Organization Address [facility] de Phone Number [facility] [place] [address] * (ABNORMAL) POC, GLUCOSE (06/16/2024 6:14 PM EST) Glucometer, POC 220(H) 65 - 199 mg/dL 06/16/2024 6:[address] [facility] Comment:Supplemental ranges: <140 mg/dL before meals <180 mg/dL all other times of the day. Blood CAPILLARY BLOOD / Unknown 06/16/2024 6:14 PM EST 06/16/2024 6:14 PM EST oBbby Loja MD POINT OF CARE TEST O NIKA Performing Organization Address [facility] Co de Phone Number [facility] [place] [address] * Lactate, Whole Blood (06/16/2024 6:14 PM EST) Lactate, Whole Blood 1.8 0.5 - 2.2 mmol/L 06/16/2024 6:[address] [facility] Blood VENOUS BLOOD SPECIMEN / Unknown Venipuncture / Unknown 06/16/2024 6:14 PM EST 06/16/2024 6:25 PM EST Bobby Loja MD CHEMISTRY ORDERABLES Performing Organization Address [facility] Co de Phone Number [facility] [place] [address] * (ABNORMAL) POC, GLUCOSE (06/16/2024 4:14 PM [...] Organization Address [facility] Co de Phone Number [facility] [place] [address] * POC, GLUCOSE (06/16/2024 11:49 AM EST) [...] Organization Address [facility] Co de Phone Number [facility] [place] [address] * (ABNORMAL) Hemogram (06/16/2024 11:44 AM EST) White Blood Cell 17.91(H) 4.00 - 9.50 x10(3)/mc L 06/16/2024 12:[address] [facility] Red Blood Cell 3.47(L) 4.58 [...] HEMATOLOGY ORDERABLE S [facility] [place] [address] * Lactate, Whole Blood (06/16/2024 9:02 AM EST) Lactate, Whole Blood 1.8 0.5 - 2.2 mmol/L 06/16/2024 9:[address] [facility] Blood VENOUS BLOOD SPECIMEN / Unknown Venipuncture / Unknown 06/16/2024 9:02 AM EST 06/16/2024 9:17 AM EST Narrative Authorizing Provider Result Saranya Loja MD CHEMISTRY ORDERABLES Performing Organization Address [facility] Co de Phone Number [facility] [place] [address] * POC, GLUCOSE (06/16/2024 7:44 AM EST) [...] Organization Address [facility] Co de Phone Number [facility] [place] [address] * POC, GLUCOSE (06/16/2024 4:01 AM EST) [...] TEST O RDERABLES [facility] [place] [address] * (ABNORMAL) Basic Metabolic Panel (06/16/2024 2:23 AM EST) Glucose 177 65 - 199 mg/dL 06/16/2024 3:13 AM [facility] Comment:Glucose [...] Address City/[facility]/ZIP Co de Phone Number [facility] [place] [address] * POC, GLUCOSE (06/16/2024 2:21 AM EST) [...] Organization Address [facility] Co de Phone Number [facility] [place] [address] * (ABNORMAL) POC, GLUCOSE (06/16/2024 12:09 AM [...] Address City/[facility]/ZIP Co de Phone Number [facility] [place] [address] * (ABNORMAL) POC, GLUCOSE (06/15/2024 10:07 PM [...] Organization Address [facility] de Phone Number [facility] [place] [address] * (ABNORMAL) POC, GLUCOSE (06/15/2024 7:56 PM [...] Organization Address [facility] de Phone Number [facility] [place] [address] * (ABNORMAL) POC, GLUCOSE (06/15/2024 7:52 PM [...] TEST O NIKA Performing Organization Address City/[facility] Co de Phone Number [facility] [place] [address] * POC, GLUCOSE (06/15/2024 4:21 PM EST) [...] Organization Address [facility] de Phone Number [facility] [place] [address] * POC, GLUCOSE (06/15/2024 3:27 PM EST) [...] Organization Address [facility] Co de Phone Number [facility] [place] [address] * POC, GLUCOSE (06/15/2024 2:23 PM EST) [...] Organization Address [facility] Co de Phone Number [facility] [place] [address] * POC, GLUCOSE (06/15/2024 1:26 PM EST) [...] Organization Address [facility] Co de Phone Number [facility] [place] [address] * (ABNORMAL) POC, GLUCOSE (06/15/2024 12:55 PM [...] Organization Address [facility] Co de Phone Number [facility] [place] [address] * (ABNORMAL) POC, GLUCOSE (06/15/2024 11:29 AM EST) Glucometer, POC 220(H) 65 - 199 mg/dL 06/15/2024 11:[address] [facility] Comment:Supplemental ranges: <140 mg/dL before meals <180 mg/dL all other times of the day. Blood CAPILLARY BLOOD / Unknown 06/15/2024 11:29 AM EST 06/15/2024 11:29 AM EST Bobby Loja MD POINT OF CARE TEST O RDERABLES [facility] [place] [address] * (ABNORMAL) Basic Metabolic Panel (06/15/2024 11:23 [...] Organization Address [facility] Co de Phone Number [facility] [place] [address] * POC, GLUCOSE (06/15/2024 10:29 AM EST) [...] TEST O RDERABLES Performing Organization Address City/[facility] Co de Phone Number [facility] [place] [address] * POC, GLUCOSE (06/15/2024 9:45 AM EST) Glucometer, POC 178 65 - 199 mg/dL 06/15/2024 9:[address] [facility] Comment:Supplemental ranges: <140 mg/dL before meals <180 mg/dL all other times of the day. Blood CAPILLARY BLOOD / Unknown 06/15/2024 9:45 AM EST 06/15/2024 9:45 AM EST Narrative Authorizing Provider Result Saranya Loja MD POINT OF CARE TEST O RDERABLES Performing Organization Address City/[facility]/ZIP Co de Phone Number [facility] [place] [address] * (ABNORMAL) Cooximetry, POC (06/15/2024 9:31 AM [...] Organization Address [facility]/ZIP Co de Phone Number [facility] [place] [address] * Cooximetry, POC (06/15/2024 9:22 AM EST) pO2, Coox 30 mmHg 06/15/2024 9:[address] [facility] Hemoglobin, Coox 06/15/2024 9:[address] [facility] Comment:QUES Oxyhemoglobin, Coox 06/15/2024 9:25 AM [facility] Comment:QUES Carboxyhemoglo bin, Coox 06/15/2024 9:25 AM [facility] Comment:QUES Methemoglobin, Coox 06/15/2024 9:25 AM [facility] Comment:QUES Blood (Mixed Venous) 06/15/2024 9:22 AM EST 06/15/2024 9:25 AM EST Bobby Loja MD POINT OF CARE TEST O NIKA [facility] [place] [address] * (ABNORMAL) Blood Gas, Arterial POC (06/15/2024 [...] TEST O NIKA [facility] [place] [address] * (ABNORMAL) POC, GLUCOSE (06/15/2024 8:37 AM EST) [facility] Signature Glucometer, POC 204(H) 65 - 199 mg/dL 06/15/2024 8:37 AM [facility] Comment:Supplemental ranges: <140 mg/dL before meals <180 mg/dL all other times of the day. Blood CAPILLARY BLOOD / Unknown 06/15/2024 8:37 AM EST 06/15/2024 8:37 AM EST Narrative Authorizing Provider Result Saranya Loja MD POINT OF CARE TEST O RDBECKIE Performing Organization Address [facility] de Phone Number [facility] [place] [address] * POC, GLUCOSE (06/15/2024 7:37 AM EST) Glucometer, POC 199 65 - 199 mg/dL 06/15/2024 7:[address] [facility] Comment:Supplemental ranges: <140 mg/dL before meals <180 mg/dL all other times of the day. Blood CAPILLARY BLOOD / Unknown 06/15/2024 7:37 AM EST 06/15/2024 7:38 AM EST Bobby Loja MD POINT OF CARE TEST O NIKA Performing Organization Address [facility] de Phone Number [facility] [place] [address] * (ABNORMAL) POC, GLUCOSE (06/15/2024 7:01 AM [...] Organization Address [facility] Co de Phone Number [facility] [place] [address] * XR Chest One View (06/15/2024 6:31 AM EST) WORKSTATION ID [id number] RAD Anatomical Region Laterality Modality Chest N/A [...] who have questions please contact the health medicare sales representative that requested your imaging first. ? Narrative [...] No pleural effusion or pneumothorax. Procedure Note Stuatr Aponte MD - 06/15/2024 EXAMINATION: XR CHEST [...] patients who have questions please contactthe health medicare sales representative that requested your imaging first. Authorizing Provider [...] Organization Address [facility]/ZIP Co de Phone Number [facility] [place] [address] * POC, GLUCOSE (06/15/2024 5:06 AM EST) [...] TEST O NIKA [facility] [place] [address] * POC, GLUCOSE (06/15/2024 4:05 AM EST) [...] Organization Address [facility] Co de Phone Number [facility] [place] [address] * POC, GLUCOSE (06/15/2024 3:07 AM EST) [...] Organization Address [facility] Co de Phone Number [facility] [place] [address] * (ABNORMAL) Basic Metabolic Panel (06/15/2024 1:48 [...] - 31 mMol/L 06/15/2024 2:[address] [facility] Anion Gap 9 5 - 15 mMol/L 06/15/2024 2:[address] [facility] Calcium 8.3(L) 8.5 - 10.5 mg/dL 06/15/2024 2:[address] [facility] Est Glomerular Filtration Rate - Male 62 mL/min/1. 75 m?? 06/15/2024 2:[address] [facility] Comment: [...] MD CHEMISTRY ORDERABLES [facility] [place] [address] * (ABNORMAL) CBC (with Diff) (06/15/2024 1:48 AM EST) White Blood Cell 11.71(H) 4.00 - 9.50 x10(3)/mc L 06/15/2024 2:[address] [facility] Red Blood Cell 4.14(L) 4.58 - 5.54 x10(6)/mc L 06/15/2024 2:[address] [facility] Hemoglobin 12.5(L) 13.7 - 16.5 g/dL 06/15/2024 2:[address] [facility] Hematocrit 38.4(L) 40.5 - 48.5 [...] HEMATOLOGY ORDERABLE S [facility] [place] [address] * (ABNORMAL) Troponin - Single (06/15/2024 1:48 [...] troponin value can be found in the [facility] Laboratory Test Catalog Troponin - [email or web address] Reference: Fourth [place] Definition of Myocardial Infarction. Journal of the [place] College [employer] 2018;72:[id number] Blood VENOUS BLOOD SPECIMEN / Unknown Venipuncture / Unknown 06/15/2024 1:48 AM EST 06/15/2024 1:52 AM EST Bobby Loja MD CHEMISTRY ORDERABLES [facility] [place] [address] * (ABNORMAL) Blood Gas, Arterial POC (06/15/2024 [...] - 26.0 mmol/L 06/15/2024 1:[address] [facility] Base Excess, Arterial -5.2(L) -3.0 - 3.0 mmol/L 06/15/2024 1:[address] [facility] Hemoglobin, Arterial 13.4(L) 13.7 - 16.5 g/dL 06/15/2024 1:[address] [facility] Oxyhemoglobin, Arterial 97.9(H) 94.0 - [...] TEST O NIKA [facility] [place] [address] * POC, GLUCOSE (06/15/2024 1:05 AM EST) [...] Organization Address [facility] Co de Phone Number [facility] [place] [address] * POC, GLUCOSE (06/15/2024 12:16 AM EST) [...] Organization Address [facility] Co de Phone Number [facility] [place] [address] * Potassium (06/14/2024 11:28 PM EST) Potassium 4.1 3.5 - 5.0 mMol/L 06/14/2024 11:[address] [facility] Blood VENOUS BLOOD SPECIMEN / Unknown Venipuncture / Unknown 06/14/2024 11:28 PM EST 06/14/2024 11:34 PM EST oBbby Loja MD CHEMISTRY ORDERABLES Performing Organization Address City/[facility]/ZIP Co de Phone Number [facility] [place] [address] * POC, GLUCOSE (06/14/2024 10:58 PM EST) [...] Address City/[facility]/ZIP Co de Phone Number [facility] [place] [address] * POC, GLUCOSE (06/14/2024 9:55 PM EST) [...] Address City/[facility]/ZIP Co de Phone Number [facility] [place] [address] * POC, GLUCOSE (06/14/2024 8:54 PM EST) [...] Organization Address [facility] Co de Phone Number [facility] [place] [address] * POC, GLUCOSE (06/14/2024 7:51 PM EST) [...] Organization Address [facility] Co de Phone Number [facility] [place] [address] * POC, GLUCOSE (06/14/2024 6:49 PM EST) Glucometer, POC 194 65 - 199 mg/dL 06/14/2024 6:[address] [facility] Comment:Supplemental ranges: <140 mg/dL before meals <180 mg/dL all other times of the day. Blood CAPILLARY BLOOD / Unknown 06/14/2024 6:49 PM EST 06/14/2024 6:50 PM EST Bobby Loja MD POINT OF CARE TEST Abimael MAHER Performing Organization Address City/[facility] Co de Phone Number [facility] [place] [address] * (ABNORMAL) Hemoglobin (06/14/2024 6:19 PM EST) Hemoglobin 13.1(L) 13.7 - 16.5 g/dL 06/14/2024 7:[address] [facility] Blood VENOUS BLOOD SPECIMEN / Unknown Venipuncture / Unknown 06/14/2024 6:19 PM EST 06/14/2024 6:28 PM EST Bobby Loja MD HEMATOLOGY ORDERABLE S Performing Organization Address [facility]/ZIP Co de Phone Number [facility] [place] [address] * Potassium (06/14/2024 6:19 PM EST) Potassium 3.9 3.5 - 5.0 mMol/L 06/14/2024 6:[address] [facility] Blood VENOUS BLOOD SPECIMEN / Unknown Venipuncture / Unknown 06/14/2024 6:19 PM EST 06/14/2024 6:28 PM EST Bobby Loja MD CHEMISTRY ORDERABLES Performing Organization Address [facility] Co de Phone Number [facility] [place] [address] * (ABNORMAL) POC, GLUCOSE (06/14/2024 6:03 PM EST) [facility] Glucometer, POC 201(H) 65 - 199 mg/dL 06/14/2024 6:[address] [facility] Comment:Supplemental ranges: <140 mg/dL before meals <180 mg/dL all other times of the day. Blood CAPILLARY BLOOD / Unknown 06/14/2024 6:03 PM EST 06/14/2024 6:03 PM EST Bobby Loja MD POINT OF CARE TEST O RDERABLES Performing Organization Address City/[facility]/ZIP Co de Phone Number [facility] [place] [address] * (ABNORMAL) Blood Gas, Arterial POC (06/14/2024 4:51 PM EST) pH, Arterial 7.32(L) 7.35 - 7.45 06/14/2024 4:[address] [facility] PCO2, Arterial 46(H) 35 - 45 mmHg 06/14/2024 4:[address] [facility] PO2, Arterial 85 85 - [...] Organization Address [facility] Co de Phone Number [facility] [place] [address] * POC, GLUCOSE (06/14/2024 4:00 PM EST) [...] Organization Address [facility] de Phone Number [facility] [place] [address] * XR Chest One View (06/14/2024 3:05 PM EST) WORKSTATION ID [id number] RAD Anatomical Region Laterality Modality Chest N/A [...] who have questions please contact the health medicare sales representative that requested your imaging first. ? Narrative [...] patients who have questions please contactthe health medicare sales representative that requested your imaging first. Bobby Loja [...] 0.1 <=1.5 % 06/14/2024 2:[address] [facility] Sodium, Arterial 138 135 - 145 mmol/L 06/14/2024 2:[address] [facility] Potassium, Arterial 4.2 3.5 - 5.0 mmol/L 06/14/2024 2:[address] [facility] Chloride, Arterial 106 98 - 107 mmol/L 06/14/2024 2:53 PM [facility] Lactate, Arterial 1.1 0.5 - 2.2 mmol/L 06/14/2024 2:53 PM [facility] Fraction of Inspired Oxygen 100 % 06/14/2024 2:53 PM [facility] PF Ratio 510 Ratio 06/14/2024 2:53 PM [facility] Comment:PF ratio calculated using the non-temperature corrected pO2 result. IONIZED CALCIUM, ARTERIAL 1.15 1.15 - 1.33 mmol/L 06/14/2024 2:53 PM [facility] Glucose, Arterial 169 65 - 199 mg/dL 06/14/2024 2:53 PM [facility] Comment:Glucose Concentratio n >=200 mg/dL plus symptoms is consistent with Diabetes Mellitus. Blood ARTERIAL BLOOD / Unknown 06/14/2024 2:52 PM EST 06/14/2024 2:53 PM EST Bobby Loja MD POINT OF CARE TEST O RDERABLES [facility] [place] [address] * EKG 12 Lead (06/14/2024 2:46 PM EST) Ventricular rate 80 BPM MUSE SYSTEM Atrial Rate 80 BPM MUSE SYSTEM P-R Interval 120 ms MUSE SYSTEM QRS Duration 108 ms MUSE SYSTEM Q-T Interval 454 ms MUSE SYSTEM QTC Calculated (Bezet) 523 ms MUSE SYSTEM Calculated P [place] 70 degrees MUSE SYSTEM Calculated R [place] 56 degrees MUSE SYSTEM Calculated T [place] 50 degrees MUSE SYSTEM INTERPRETATION AV dual-paced rhythm Abnormal ECG When compared with ECG of 03-JUN-2024 01:45, Vent. rate has increased BY ??17 BPM Confirmed by MD Marisol, Shaheen ([id number]) on 06/15/2024 1:57:23 PM MUSE SYSTEM 06/14/2024 2:46 PM EST 06/15/2024 1:57 PM EST Bobby Loja MD ECG ORDERABLES MUSE SYSTEM * Prepare RBC (06/14/2024 2:27 PM EST) Status Information Returned [facility] Product Identification RBC [facility] Unit Number [id number] [facility] Product [facility] [id number] [facility] Unit Blood Type OPOS [facility] Specimen Expiration Date [facility] Volulme 350 [facility] Issue Date / Time [facility] Status Information Returned [facility] Product Identification RBC [facility] Unit Number [id number] [facility] Product [facility] [id number] [facility] Unit Blood Type OPOS [facility] Specimen Expiration Date [facility] Volulme 350 [facility] Issue Date / Time [facility] Blood 06/14/2024 6:2 5 AM EST Haja Byrnes MD BLOOD BANK PRODUCT O RDERABLES [facility] [place] [address] * (ABNORMAL) Cooximetry, POC (06/14/2024 1:52 PM EST) pO2, Coox 58 mmHg 06/14/2024 1:[address] [facility] Hemoglobin, Coox 12.6(L) 13.7 - 16.5 g/dL 06/14/2024 1:[address] [facility] Oxyhemoglobin, Coox 85.5 % 06/14/2024 1:55 PM [facility] Carboxyhemoglo bin, Coox 0.3 % 06/14/2024 1:55 PM [facility] Comment: Nonsmokers: 0.5-1.5% COHB ?? Smokers: Variable ??but usually less than 10% ?? Toxic: 20-30% COHB ?? Lethal: Greater than 60% COHB Methemoglobin, Coox 0.6 <=1.5 % 06/14/2024 1:55 PM [facility] Blood (Mixed Venous) 06/14/2024 1:52 PM EST 06/14/2024 1:55 PM EST Haja Byrnes MD POINT OF CARE TEST O RDERABLES Performing Organization Address City/State/[facility] Co de Phone Number [facility] [place] [address] * (ABNORMAL) Blood Gas, Arterial POC (06/14/2024 [...] - 97.0 % 06/14/2024 12:[address] [facility] Carboxyhemoglobin , Arterial 0.3 % 06/14/2024 12:48 PM [facility] Comment: Nonsmokers: 0.5-1.5% COHB ?? Smokers: Variable ??but usually less than 10% ?? Toxic: 20-30% COHB ?? Lethal: Greater than 60% COHB Methemoglobin, Arterial 0.5 <=1.5 % 06/14/2024 12:[address] [facility] Sodium, Arterial 135 135 - 145 mmol/L 06/14/2024 12:48 PM [facility] Potassium, Arterial 5.0 3.5 - 5.0 mmol/L 06/14/2024 12:48 PM [facility] Chloride, Arterial 106 98 - 107 mmol/L 06/14/2024 12:48 PM [facility] Lactate, Arterial 1.4 0.5 - 2.2 mmol/L 06/14/2024 12:48 PM [facility] IONIZED CALCIUM, ARTERIAL 1.09(L) 1.15 - 1.33 mmol/L 06/14/2024 12:48 PM [facility] Glucose, Arterial 157 65 - 199 mg/dL 06/14/2024 12:48 PM [facility] Comment:Glucose Concentratio n >=200 mg/dL plus symptoms is consistent with Diabetes Mellitus. Blood ARTERIAL BLOOD / Unknown 06/14/2024 12:47 PM EST 06/14/2024 12:48 PM EST Haja Byrnes MD POINT OF CARE TEST O RDERABLES [facility] [place] [address] * (ABNORMAL) Cooximetry, POC (06/14/2024 12:42 PM [...] TEST O RDERABLES [facility] [place] [address] * (ABNORMAL) Platelet count (06/14/2024 12:30 PM EST) Platelet 73(L) 145 - 357 x10(3)/mcL 06/14/2024 12:[address] [facility] Blood ARTERIAL BLOOD / Unknown 06/14/2024 12:30 PM EST Comment:Pre-op diagnosis: CAD Bobby Loja MD HEMATOLOGY ORDERABLE S [facility] [place] [address] * (ABNORMAL) Hemoglobin and Hematocrit, blood (06/14/2024 [...] Organization Address [facility] Co de Phone Number [facility] [place] [address] * APTT (06/14/2024 12:30 PM EST) Partial [...] Organization Address [facility] Co de Phone Number [facility] [place] [address] * (ABNORMAL) Prothrombin Time (06/14/2024 12:30 PM [...] Organization Address [facility] Co de Phone Number [facility] [place] [address] * Fibrinogen (06/14/2024 12:30 PM EST) Fibrinogen [...] Organization Address [facility] Co de Phone Number [facility] [place] [address] * (ABNORMAL) Blood Gas, Arterial POC (06/14/2024 12:15 PM EST) pH, Arterial 7.38 7.35 - 7.45 06/14/2024 12:[address] [facility] PCO2, Arterial 40 35 - 45 mmHg 06/14/2024 12:[address] [facility] Bicarbonate, Arterial 22.9 20.0 - 26.0 mmol/L 06/14/2024 12:[address] [facility] Base Excess, Arterial -2.3 -3.0 - 3.0 mmol/L 06/14/2024 12:[address] [facility] Hemoglobin, Arterial 11.4(L) 13.7 - [...] TEST O RDERABLES [facility] [place] [address] * (ABNORMAL) Blood Gas, Arterial POC (06/14/2024 [...] - 1.33 mmol/L 06/14/2024 11:[address] [facility] Glucose, Arterial 148 65 - 199 mg/dL 06/14/2024 11:[address] [facility] Comment:Glucose Concentratio n >=200 mg/dL plus symptoms is consistent with Diabetes Mellitus. Blood ARTERIAL BLOOD / Unknown 06/14/2024 11:51 AM EST 06/14/2024 11:52 AM EST Haja Byrnes MD POINT OF CARE TEST O RDERABLES [facility] [place] [address] * (ABNORMAL) Blood Gas, Arterial POC (06/14/2024 [...] TEST O RDERABLES [facility] [place] [address] * (ABNORMAL) Scan, Peripheral Blood (06/14/2024 11:23 AM EST) RBC Morphology Abnormal 06/14/2024 11:59 AM [facility] Platelet Estimate Decreased(A) Normal 06/14/2024 11:59 AM [facility] [place] cells 1-5 /HPF 06/14/2024 11:59 AM [facility] Blood ARTERIAL BLOOD / Unknown 06/14/2024 11:23 AM EST 06/14/2024 11:27 AM EST Bobby Loja MD HEMATOLOGY ORDERABLE S [facility] [place] [address] * (ABNORMAL) Platelet count (06/14/2024 11:23 AM EST) Platelet 86(L) 145 - 357 x10(3)/mcL 06/14/2024 11:[address] [facility] Blood ARTERIAL BLOOD / Unknown 06/14/2024 11:23 AM EST Comment:Pre-op diagnosis: CAD Bobby Loja MD HEMATOLOGY ORDERABLE S Performing Organization Address [facility]/ZIP Co de Phone Number [facility] [place] [address] * (ABNORMAL) Hemoglobin and Hematocrit, blood (06/14/2024 [...] Address City/[facility]/ZIP Co de Phone Number [facility] [place] [address] * (ABNORMAL) Blood Gas, Arterial POC (06/14/2024 10:58 AM [facility]) pH, Arterial 7.38 7.35 - 7.45 06/14/2024 10:59 AM [facility] PCO2, Arterial 43 35 - 45 mmHg 06/14/2024 10:59 AM [facility] PO2, Arterial 401(H) 85 - 104 mmHg 06/14/2024 10:59 AM [facility] Bicarbonate, Arterial 24.8 20.0 - [...] TEST O RDERABLES [facility] [place] [address] * (ABNORMAL) Blood Gas, Arterial POC (06/14/2024 [...] TEST O RDERABLES [facility] [place] [address] * (ABNORMAL) Blood Gas, Arterial POC (06/14/2024 [...] POINT OF CARE TEST O RDERABLES [facility] [address] * Surgical Pathology (06/14/2024 9:53 AM EST) Case Report Surgical Pathology Report ? Case: [id number] ? Authorizing Provider: ??Bobby Loja MD ? Collected: ? 06/14/2024 0953 ? Ordering Location: ? Main Operating Room [facility] ?? Received: ?06/14/2024 1413 ? [facility] ? Hospital ? Pathologist: ? [...] Inking: External surface inked black Sections/Process ing: Licensed Therapist sections in 4 cassettes labeled A1-A4. cmk B. Heart, Atrial Appendage, Left, . B - Labeled/Fixative : Heart, atrial appendage, left, fresh. Quantity/Size: Single, 3.3 x 1.5 x 0.8 cm. Tissue Description: Portion of heart tissue consisting of rodriguez-white, semitranslucent, smooth endocardium with rodriguez-brown muscular myocardium and thin translucent epicardium with adherent adipose tissue. No areas of discoloration identified. Sections/Process ing: Licensed Therapist sections in 1 cassette labeled B1. cmk [...] Comment:MARIALUISA Bobby Loja MD PATHOLOGY/CYTOLOGY O RDERAPIETER [facility] [place] [address] * Cooximetry, POC (06/14/2024 9:00 AM EST) [...] TEST O RDERABLES [facility] [place] [address] * (ABNORMAL) Blood Gas, Arterial POC (06/14/2024 [...] - 107 mmol/L 06/14/2024 8:[address] [facility] Lactate, Arterial 0.9 0.5 - 2.2 mmol/L 06/14/2024 8:[address] [facility] IONIZED CALCIUM, ARTERIAL 1.17 1.15 - 1.33 mmol/L 06/14/2024 8:[address] [facility] Glucose, Arterial 121 65 - 199 mg/dL 06/14/2024 8:[address] [facility] Comment:Glucose Concentratio n >=200 mg/dL plus symptoms is consistent with Diabetes Mellitus. Blood ARTERIAL BLOOD / Unknown 06/14/2024 8:39 AM EST 06/14/2024 8:40 AM EST Haja Byrnes MD POINT OF CARE TEST O RDERABLES Performing Organization Address City/State/[facility] Co de Phone Number [facility] [place] [address] * Transesophageal Echo/OR (06/14/2024 7:20 AM EST) Anatomical Region Laterality Modality Cardiac Other 06/14/2024 7:20 AM EST Narrative 06/14/2024 4:36 PM EST Version: 2 Study ID: [id number] [address] [place] [address] ?OR Transesophageal Echo Report Name: GEORGE MEHTA [...] of this mass after consultation with other twisting department end finder experts and the decision was made by [...] MD - 06/14/2024 Version: 2 Study ID: [id number] [address] [place] [id number] ORTransesophageal Echo Report Name: GEORGE MEHTA Study [...] of this mass after consultation with other twisting department end finder experts and thedecision was made by surgeon [...] Address City/[facility]/ZIP Co de Phone Number [facility] [place] [address] * POC, GLUCOSE (06/14/2024 4:30 AM EST) [...] Address City/[facility]/ZIP Co de Phone Number [facility] [place] [address] * (ABNORMAL) Heparin (unfractionated) Level (06/14/2024 12:12 AM EST) Pathologist [facility] UF Heparin 1.02(HHH) IU/mL 06/14/2024 12:46 AM [...] HEMATOLOGY ORDERABLE S [facility] [place] [address] * (ABNORMAL) CBC (with Diff) (06/14/2024 12:12 AM EST) Pathologist [facility] White Blood Cell 10.51(H) 4.00 - 9.50 x10(3)/mc L 06/14/2024 12:[address] [facility] Red Blood Cell 4.99 4.58 - 5.54 x10(6)/mc L 06/14/2024 12:[address] [facility] Hemoglobin 14.9 13.7 - 16.5 g/dL 06/14/2024 12:[address] [facility] Hematocrit 45.9 40.5 - 48.5 [...] 0.90 x10(3)/mc L 06/14/2024 12:[address] [facility] Eos % 3.9 % 06/14/2024 12:[address] [facility] Eos Absolute 0.41(H) 0.00 - 0.40 x10(3)/mc L 06/14/2024 12:[address] [facility] Basophil % 0.8 % 06/14/2024 12:[address] [facility] Baso Absolute 0.08 0.00 - 0.10 x10(3)/mc L 06/14/2024 12:[address] [facility] Immature Gran % 0.6 % 12:38 AM [facility] Immature Gran Absolute 0.06(H) 0.00 - 0.04 x10(3)/mc L 06/14/2024 12:[address] [facility] Blood VENOUS BLOOD SPECIMEN / Unknown Venipuncture / Unknown 06/14/2024 12:12 AM EST 06/14/2024 12:29 AM EST Shahnaz Scanlon MD HEMATOLOGY ORDERABLE S [facility] [place] [address] * Magnesium (06/14/2024 12:12 AM EST) Magnesium 0.74 0.69 - 1.07 mMol/L 06/14/2024 12:[address] [facility] Blood VENOUS BLOOD SPECIMEN / Unknown Venipuncture / Unknown 06/14/2024 12:12 AM EST 06/14/2024 12:29 AM EST Shahnaz Scanlon MD CHEMISTRY ORDERABLES [facility] [place] [address] * (ABNORMAL) Basic Metabolic Panel (06/14/2024 12:12 [...] Organization Address [facility]/ZIP Co de Phone Number [facility] [place] [address] * Scan Doc: Implantable Devices (06/14/2024 12:00 [...] Organization Address [facility]/ZIP Co de Phone Number [facility] [place] [address] * (ABNORMAL) POC, GLUCOSE (06/13/2024 8:03 PM [...] Address City/[facility]/ZIP Co de Phone Number [facility] [place] [address] * Heparin (unfractionated) Level (06/13/2024 4:11 PM EST) [facility] UF Heparin 0.76 IU/mL 06/13/2024 4:24 PM [...] HEMATOLOGY ORDERABLE S [facility] [place] [address] * ABORH RECHECK (06/13/2024 4:11 PM EST) [facility] ABORH Recheck O POSITIVE 06/13/2024 4:50 PM EST [facility] Blood VENOUS BLOOD SPECIMEN / Unknown Venipuncture / Unknown 06/13/2024 4:11 PM EST 06/13/2024 4:19 PM EST Haja Byrnes MD BLOOD BANK LAB ORDER [place] [facility] [place] [address] * (ABNORMAL) POC, GLUCOSE (06/13/2024 4:09 PM EST) Glucometer, POC 216(H) 65 - 199 mg/dL 06/13/2024 4:[address] [facility] Comment:Supplemental ranges: <140 mg/dL before meals <180 mg/dL all other times of the day. Blood CAPILLARY BLOOD / Unknown 06/13/2024 4:09 PM EST 06/13/2024 4:10 PM EST Haja Byrnes MD POINT OF CARE TEST O RDERABLES [facility] [place] [address] * Type and screen ([facility]CGP[place]RAFITA) (06/13/2024 11:53 AM EST) [facility] ABORH Type O POSITIVE 06/13/2024 1:16 PM EST [facility] PATIENT HISTORY Not Found 06/13/2024 1:16 PM EST [facility] Expires at [id number] on: 06/16/2024 06/13/2024 1:16 PM EST [facility] ANTIBODY SCREEN AUTOMATED Negative 06/13/2024 1:16 PM EST [facility] T&S only valid at [facility] 06/13/2024 1:16 PM EST [facility] Blood VENOUS BLOOD SPECIMEN / Unknown Venipuncture / Unknown 06/13/2024 11:53 AM EST 06/13/2024 11:56 AM EST Narrative [facility] - 06/13/2024 1:16 PM EST This Type and Screen result is only valid at the [facility] Haja Byrnes MD BLOOD BANK LAB ORDER [place] [facility] [place] [address] * POC, GLUCOSE (06/13/2024 11:50 AM EST) Glucometer, POC 178 65 - 199 mg/dL 06/13/2024 11:[address] [facility] Comment:Supplemental ranges: <140 mg/dL before meals <180 mg/dL all other times of the day. Blood CAPILLARY BLOOD / Unknown 06/13/2024 11:50 AM EST 06/13/2024 11:51 AM EST Haja Byrnes MD POINT OF CARE TEST O RDERABLES [facility] [place] [address] * XR Chest One View (06/13/2024 10:35 AM EST) WORKSTATION ID [id number] RAD Anatomical Region Laterality Modality Chest N/A [...] who have questions please contact the health medicare sales representative that requested your imaging first. ? Narrative [...] patients who have questions please contactthe health medicare sales representative that requested your imaging first. Haja Byrnes MD IMG DX ORDERABLES * CARDIAC CATHETERIZATION (06/13/2024 9:02 AM EST) Anatomical Region Laterality Modality Other Narrative 06/15/2024 9:07 AM EST ?[facility] ? Cardiac Catheterization/Intervention Report ? Patient Name: Tyson, George L. ? Procedure Date: 06/13/2024 ? A #: [id number] ? Primary Physician: Nuha Shen I ? Case #: [id number] ? File Name: [id number] ? Catheterization Order Number: [id number] ? [facility] ? Final Report [place], [place] ? Patient Name: ? George L. Tyson ? ID#: ?[id number] ? : ?1955 ? Procedure Date: ? June 13, 2024 ?Case #: ? [id number] ? Room: ? 6 ? Case Physician: [...] ?was designated as ASA Class IV. The [facility] clinical frailty scale is 5: ?Mildly [...] procedure was Urgent. The indication for ?the prosthetics lab technician visit is ACS greater than [...] angiography, vascular ?ultrasound and IABP insertion in prosthetics lab technician. ? Nuha I Hermelinda, M.D. ? Electronically Signed by: Nuha Reyesry, M.D. ? Report Finalized: 06/15/2024 ??08:59 ? Procedure Note Nuha Shen MD - 06/15/2024 [facility] Cardiac Catheterization/Intervention Report Patient Name: George Mehta Procedure Date: 06/13/2024 A #: [id number] Primary Physician: Nuha Shen I Case #: [id number] File Name: [id number] Catheterization Order Number: [id number] [facility] FinalReport [place], [place] Patient Name: George Mehta ID#:[id number] :1955 Procedure Date: June 13, 2024 Case [...] was designated as ASA Class IV. The [facility] clinical frailty scale is5: Mildly Frail. [...] diagnostic procedure was Urgent. The indicationfor the prosthetics lab technician visit is ACS greater than [...] site angiography,vascular ultrasound and IABP insertion in prosthetics lab technician. Nuha Shen M.D. Electronically Signed [...] MD CHEMISTRY ORDERABLES [facility] [place] [id number] * POC, GLUCOSE (06/13/2024 7:41 AM EST) [...] Organization Address [facility] de Phone Number [facility] [place] [address] * POC, GLUCOSE (06/13/2024 3:25 AM EST) Glucometer, POC 99 65 - 199 mg/dL 06/13/2024 3:[address] [facility] Comment:Supplemental ranges: <140 mg/dL before meals <180 mg/dL all other times of the day. Blood CAPILLARY BLOOD / Unknown 06/13/2024 3:25 AM EST 06/13/2024 3:25 AM EST Ethel Carrillo MD POINT OF CARE TEST O NIKA Performing Organization Address [facility] de Phone Number [facility] [place] [address] * Heparin (unfractionated) Level (06/13/2024 2:26 AM [...] HEMATOLOGY ORDERABLE S [facility] [place] [address] * (ABNORMAL) CBC (with Diff) (06/13/2024 2:26 [...] HEMATOLOGY ORDERABLE S [facility] [place] [address] * Magnesium (06/13/2024 2:26 AM EST) Magnesium 0.78 0.69 - 1.07 mMol/L 06/13/2024 2:[address] [facility] Blood VENOUS BLOOD SPECIMEN / Unknown Venipuncture / Unknown 06/13/2024 2:26 AM EST 06/13/2024 2:31 AM EST Shahnaz Scanlon MD CHEMISTRY ORDERABLES Performing Organization Address City/[facility]/ZIP Co de Phone Number [facility] [place] [address] * (ABNORMAL) Basic Metabolic Panel (06/13/2024 2:26 [...] - 15 mMol/L 06/13/2024 2:[address] [facility] Calcium 9.7 8.5 - 10.5 mg/dL 06/13/2024 2:[address] [facility] Est Glomerular Filtration Rate - Male 76 mL/min/1. 73 m?? 06/13/2024 2:[address] [facility] Comment: [...] MD CHEMISTRY ORDERABLES [facility] [place] [address] * POC, GLUCOSE (06/12/2024 11:53 PM EST) [facility] Signature Glucometer, POC 141 65 - 199 mg/dL 06/12/2024 11:[address] [facility] Comment:Supplemental ranges: <140 mg/dL before meals <180 mg/dL all other times of the day. Blood CAPILLARY BLOOD / Unknown 06/12/2024 11:53 PM EST 06/12/2024 11:54 PM EST Ethel Carrillo MD POINT OF CARE TEST O RDERABLES Performing Organization Address City/[facility]/ZIP Co de Phone Number [facility] [place] [address] * POC, GLUCOSE (06/12/2024 7:32 PM EST) [...] Address City/[facility]/ZIP Co de Phone Number [facility] [place] [address] * POC, GLUCOSE (06/12/2024 3:41 PM EST) [...] Address City/[facility]/ZIP Co de Phone Number [facility] [place] [address] * Potassium (06/12/2024 2:19 PM EST) Potassium 4.5 3.5 - 5.0 mMol/L 06/12/2024 2:[address] [facility] Blood VENOUS BLOOD SPECIMEN / Unknown Venipuncture / Unknown 06/12/2024 2:19 PM EST 06/12/2024 2:23 PM EST Shahnaz Scanlon MD CHEMISTRY ORDERABLES [facility] [place] [address] * (ABNORMAL) POC, GLUCOSE (06/12/2024 11:21 AM [...] Address City/[facility]/ZIP Co de Phone Number [facility] [place] [address] * POC, GLUCOSE (06/12/2024 8:00 AM EST) Glucometer, POC 169 65 - 199 mg/dL 06/12/2024 8:[address] [facility] Comment:Supplemental ranges: <140 mg/dL before meals <180 mg/dL all other times of the day. Blood CAPILLARY BLOOD / Unknown 06/12/2024 8:00 AM EST 06/12/2024 8:01 AM EST Ethel Carrillo MD POINT OF CARE TEST O NIKA [facility] [place] [address] * POC, GLUCOSE (06/12/2024 4:25 AM EST) [...] Organization Address [facility]/ZIP Co de Phone Number [facility] [place] [address] * Heparin (unfractionated) Level (06/12/2024 3:03 AM [...] Address City/[facility]/ZIP Co de Phone Number [facility] [place] [address] * (ABNORMAL) CBC (with Diff) (06/12/2024 3:03 AM EST) White Blood Cell 9.69(H) 4.00 - 9.50 x10(3)/mc L 06/12/2024 3:[address] [facility] Red Blood Cell 5.05 4.58 - 5.54 x10(6)/mc L 06/12/2024 3:[address] [facility] Hemoglobin 15.2 13.7 - 16.5 [...] % 11.1 % 06/12/2024 3:[address] [facility] Monocyte Absolute 1.08(H) 0.30 - 0.90 x10(3)/mc L 06/12/2024 3:36 AM [facility] Eos % 4.1 % 06/12/2024 3:36 AM [facility] Eos Absolute 0.40 0.00 - 0.40 x10(3)/mc L 06/12/2024 3:[address] [facility] Basophil % 0.8 % 06/12/2024 [...] EST Shahnaz Scanlon MD [place] [address] * Magnesium (06/12/2024 3:03 AM EST) Magnesium 0.79 0.69 - 1.07 mMol/L 06/12/2024 4:01 AM [facility] Blood VENOUS BLOOD SPECIMEN / Unknown Venipuncture / Unknown 06/12/2024 3:03 AM EST 06/12/2024 3:30 AM EST Shahnaz Scanlon MD CHEMISTRY ORDERABLES [facility] [place] [address] * (ABNORMAL) Basic Metabolic Panel (06/12/2024 3:03 [...] Organization Address [facility] Co de Phone Number [facility] [place] [address] * POC, GLUCOSE (06/11/2024 11:56 PM EST) [...] Organization Address [facility] de Phone Number [facility] [place] [address] * (ABNORMAL) POC, GLUCOSE (06/11/2024 8:25 PM [...] Organization Address [facility] Co de Phone Number [facility] [place] [address] * POC, GLUCOSE (06/11/2024 4:24 PM EST) [...] Address City/[facility]/ZIP Co de Phone Number [facility] [place] [address] * (ABNORMAL) POC, GLUCOSE (06/11/2024 11:08 AM [...] Organization Address [facility]/ZIP Co de Phone Number [facility] [place] [address] * POC, GLUCOSE (06/11/2024 7:48 AM EST) [...] Address City/[facility]/ZIP Co de Phone Number [facility] [place] [address] * Heparin (unfractionated) Level (06/11/2024 5:31 AM [...] HEMATOLOGY ORDERABLE S [facility] [place] [address] * POC, GLUCOSE (06/11/2024 3:57 AM EST) Glucometer, POC 132 65 - 199 mg/dL 06/11/2024 3:[address] [facility] Comment:Supplemental ranges: <140 mg/dL before meals <180 mg/dL all other times of the day. Blood CAPILLARY BLOOD / Unknown 06/11/2024 3:57 AM EST 06/11/2024 3:58 AM EST Melida Valdes MD POINT OF CARE TEST O RDERABLES [facility] [place] [address] * (ABNORMAL) CBC (with Diff) (06/11/2024 2:13 AM [facility]) [facility] White Blood Cell 9.91(H) 4.00 - 9.50 x10(3)/mc L 06/11/2024 2:26 AM [facility] Red Blood Cell 5.13 4.58 - 5.54 x10(6)/mc L 06/11/2024 2:26 AM [facility] Hemoglobin [...] HEMATOLOGY ORDERABLE S [facility] [place] [address] * Magnesium (06/11/2024 2:13 AM EST) Magnesium 0.83 0.69 - 1.07 mMol/L 06/11/2024 2:[address] [facility] Blood VENOUS BLOOD SPECIMEN / Unknown Venipuncture / Unknown 06/11/2024 2:13 AM EST 06/11/2024 2:19 AM EST Shahnaz Scanlon MD CHEMISTRY ORDERABLES [facility] [place] [address] * (ABNORMAL) Basic Metabolic Panel (06/11/2024 2:13 AM EST) Pathologist [facility] Glucose 148 65 - 199 mg/dL 06/11/2024 [...] Organization Address [facility]/ZIP Co de Phone Number [facility] [place] [address] * POC, GLUCOSE (06/11/2024 12:50 AM EST) [...] Address City/[facility]/ZIP Co de Phone Number [facility] [place] [address] * (ABNORMAL) POC, GLUCOSE (06/10/2024 7:22 PM EST) Glucometer, POC 236(H) 65 - 199 mg/dL 06/10/2024 7:[address] [facility] Comment:Supplemental ranges: <140 mg/dL before meals <180 mg/dL all other times of the day. Blood CAPILLARY BLOOD / Unknown 06/10/2024 7:22 PM EST 06/10/2024 7:22 PM EST Melida Valdes MD POINT OF CARE TEST O RDERABLES [facility] [place] [address] * (ABNORMAL) Blood Gas, Venous (06/10/2024 5:42 PM EST) pH, Venous 7.34 7.32 - 7.42 06/10/2024 5:[address] [facility] PCO2, Venous 52 38 - 58 mmHg 06/10/2024 5:50 PM [facility] PO2, Venous 24 16 - 65 mmHg 06/10/2024 5:[address] [facility] Bicarbonate, Venous 27.4 22 - 31 mmol/L 06/10/2024 5:50 PM [facility] Base Excess, Venous 1.7(L) 1.9 - 4.5 mmol/L 06/10/2024 5:50 PM [facility] Hemoglobin, Venous 16.8(H) 13.7 - 16.5 g/dL 06/10/2024 5:50 PM [facility] Oxyhemoglobin, Venous 39.0 % 06/10/2024 5:[address] [facility] Carboxyhemoglobin , Venous 0.3 % 06/10/2024 5:50 PM [facility] Comment: Nonsmokers: 0.5-1.5% COHB ?? Smokers: Variable ??but usually less than 10% ?? Toxic: 20-30% COHB ?? Lethal: Greater than 60% COHB Methemoglobin, Venous 0.5 <=1.5 % 06/10/2024 5:[address] [facility] Sodium, Venous 137 135 - [...] Blood Gas Source Venous 06/10/20 5:50 PM [facility] Blood VENOUS BLOOD SPECIMEN / Unknown Blood Gas Venous / Unknown 06/10/2024 5:42 PM EST 06/10/2024 5:47 PM EST Melida Valdes MD CHEMISTRY ORDERABLES [facility] [place] [address] * POC, GLUCOSE (06/10/2024 5:35 PM EST) Glucometer, POC 123 65 - 199 mg/dL 06/10/2024 5:35 PM [facility] Comment:Supplemental ranges: <140 mg/dL before meals <180 mg/dL all other times of the day. Blood CAPILLARY BLOOD / Unknown 06/10/2024 5:35 PM EST 06/10/2024 5:35 PM EST Melida Valdes MD POINT OF CARE TEST O RDERABLES [facility] [place] [address] * (ABNORMAL) POC, GLUCOSE (06/10/2024 11:25 AM [...] Address City/[facility]/ZIP Co de Phone Number [facility] [place] [address] * (ABNORMAL) POC, GLUCOSE (06/10/2024 7:46 AM [...] Organization Address [facility] Co de Phone Number [facility] [place] [address] * POC, GLUCOSE (06/10/2024 4:23 AM EST) Glucometer, POC 154 65 - 199 mg/dL 06/10/2024 4:[address] [facility] Comment:Supplemental ranges: <140 mg/dL before meals <180 mg/dL all other times of the day. Blood CAPILLARY BLOOD / Unknown 06/10/2024 4:23 AM EST 06/10/2024 4:24 AM EST Melida Valdes MD POINT OF CARE TEST O NIKA [facility] [place] [address] * (ABNORMAL) CBC (with Diff) (06/10/2024 1:55 AM EST) White Blood Cell 9.00 4.00 - 9.50 x10(3)/mc L 06/10/2024 2:14 AM [facility] Red Blood Cell 5.03 4.58 [...] HEMATOLOGY ORDERABLE S [facility] [place] [address] * Magnesium (06/10/2024 1:55 AM EST) Magnesium 0.83 0.69 - 1.07 mMol/L 06/10/2024 2:[address] [facility] Blood VENOUS BLOOD SPECIMEN / Unknown Venipuncture / Unknown 06/10/2024 1:55 AM EST 06/10/2024 2:05 AM EST Shahnaz Scanlon MD CHEMISTRY ORDERABLES [facility] [place] [address] * (ABNORMAL) Basic Metabolic Panel (06/10/2024 1:55 AM EST) Pathologist [facility] Glucose 140 65 - 199 mg/dL 06/10/2024 [...] 1:55 AM EST 06/10/2024 2:05 AM EST Shhanaz Scanlon MD CHEMISTRY ORDERABLES [facility] [place] [address] * Heparin (unfractionated) Level (06/10/2024 1:54 AM [...] Address City/[facility]/ZIP Co de Phone Number [facility] [place] [address] * POC, GLUCOSE (06/10/2024 12:05 AM EST) [...] Organization Address [facility]/ZIP Co de Phone Number [facility] [place] [address] * POC, GLUCOSE (06/09/2024 8:36 PM EST) Glucometer, POC 197 65 - 199 mg/dL 06/09/2024 8:[address] [facility] Comment:Supplemental ranges: <140 mg/dL before meals <180 mg/dL all other times of the day. Blood CAPILLARY BLOOD / Unknown 06/09/2024 8:36 PM EST 06/09/2024 8:36 PM EST Melida Valdes MD POINT OF CARE TEST O NIKA [facility] [place] [address] * POC, GLUCOSE (06/09/2024 5:27 PM EST) Glucometer, POC 174 65 - 199 mg/dL 06/09/2024 5:[address] [facility] Comment:Supplemental ranges: <140 mg/dL before meals <180 mg/dL all other times of the day. Blood CAPILLARY BLOOD / Unknown 06/09/2024 5:27 PM EST 06/09/2024 5:28 PM EST Melida Valdes MD POINT OF CARE TEST O NIKA [facility] [place] [address] * (ABNORMAL) POC, GLUCOSE (06/09/2024 11:52 AM [...] Address City/[facility]/ZIP Co de Phone Number [facility] [place] [address] * Potassium (06/09/2024 8:25 AM EST) Potassium 4.6 3.5 - 5.0 mMol/L 06/09/2024 10:[address] [facility] Blood VENOUS BLOOD SPECIMEN / Unknown Venipuncture / Unknown 06/09/2024 8:25 AM EST 06/09/2024 8:42 AM EST Shahnaz Scanlon MD CHEMISTRY ORDERABLES Performing Organization Address City/[facility]/ZIP Co de Phone Number [facility] [place] [address] * (ABNORMAL) POC, GLUCOSE (06/09/2024 8:10 AM [...] Organization Address [facility] Co de Phone Number [facility] [place] [address] * POC, GLUCOSE (06/09/2024 4:40 AM EST) [...] Organization Address [facility] Co de Phone Number [facility] [place] [address] * Heparin (unfractionated) Level (06/09/2024 2:12 AM [...] HEMATOLOGY ORDERABLE S [facility] [place] [address] * (ABNORMAL) CBC (with Diff) (06/09/2024 2:12 [...] Organization Address [facility]/ZIP Co de Phone Number [facility] [place] [address] * Magnesium (06/09/2024 2:12 AM EST) Magnesium 0.83 0.69 - 1.07 mMol/L 06/09/2024 2:52 AM [facility] Blood VENOUS BLOOD SPECIMEN / Unknown Venipuncture / Unknown 06/09/2024 2:12 AM EST 06/09/2024 2:22 AM EST Shahnaz Scanlon MD CHEMISTRY ORDERABLES Performing Organization Address City/[facility] Co de Phone Number [facility] [place] [address] * (ABNORMAL) Basic Metabolic Panel (06/09/2024 2:12 [...] - 31 mMol/L 06/09/2024 2:[address] [facility] Anion Gap 11 5 - 15 mMol/L 06/09/2024 2:[address] [facility] Calcium 9.7 8.5 - 10.5 mg/dL 06/09/2024 2:[address] [facility] Est Glomerular Filtration Rate - Male 73 mL/min/1. 73 m?? 06/09/2024 2:[address] [facility] Comment: [...] Address City/[facility]/ZIP Co de Phone Number [facility] [place] [address] * POC, GLUCOSE (06/09/2024 12:34 AM EST) [facility] Signature Glucometer, POC 186 65 - 199 mg/dL 06/09/2024 12:[address] [facility] Comment:Supplemental ranges: <140 mg/dL before meals <180 mg/dL all other times of the day. Blood CAPILLARY BLOOD / Unknown 06/09/2024 12:34 AM EST 06/09/2024 12:34 AM EST Melida Valdes MD POINT OF CARE TEST O RDERABLES [facility] [place] [address] * POC, GLUCOSE (06/08/2024 8:27 PM EST) [...] Organization Address [facility] de Phone Number [facility] [place] [address] * POC, GLUCOSE (06/08/2024 4:16 PM EST) [...] Organization Address [facility] Co de Phone Number [facility] [place] [address] * (ABNORMAL) POC, GLUCOSE (06/08/2024 12:35 PM EST) Glucometer, POC 226(H) 65 - 199 mg/dL 06/08/2024 12:[address] [facility] Comment:Supplemental ranges: <140 mg/dL before meals <180 mg/dL all other times of the day. Blood CAPILLARY BLOOD / Unknown 06/08/2024 12:35 PM EST 06/08/2024 12:35 PM EST Melida Valdes MD POINT OF CARE TEST O NIKA Performing Organization Address City/[facility] Co de Phone Number [facility] [place] [address] * POC, GLUCOSE (06/08/2024 8:10 AM EST) [...] Organization Address [facility] de Phone Number [facility] [place] [address] * POC, GLUCOSE (06/08/2024 4:09 AM EST) Glucometer, POC 151 65 - 199 mg/dL 06/08/2024 4:[address] [facility] Comment:Supplemental ranges: <140 mg/dL before meals <180 mg/dL all other times of the day. Blood CAPILLARY BLOOD / Unknown 06/08/2024 4:09 AM EST 06/08/2024 4:10 AM EST Melida Valdes MD POINT OF CARE TEST O NIKA Performing Organization Address City/[facility] Co de Phone Number [facility] [place] [address] * Heparin (unfractionated) Level (06/08/2024 3:21 AM [...] MD HEMATOLOGY ORDERABLE S Performing Organization Address City/State/[facility] Co de Phone Number [facility] [place] [address] * (ABNORMAL) CBC (with Diff) (06/08/2024 3:21 [...] % 0.8 % 06/08/2024 3:[address] [facility] Baso Absolute 0.08 0.00 - 0.10 x10(3)/mc L 06/08/2024 3:34 AM [facility] Immature Gran % 0.5 % 3:34 AM [facility] Immature Gran Absolute 0.05(H) 0.00 - 0.04 x10(3)/mc L 06/08/2024 3:[address] [facility] Blood VENOUS BLOOD SPECIMEN / Unknown Venipuncture / Unknown 06/08/2024 3:21 AM EST 06/08/2024 3:27 AM EST Shahnaz Scanlon MD HEMATOLOGY ORDERABLE S Performing Organization Address City/[facility]/ZIP Co de Phone Number [facility] [place] [address] * Magnesium (06/08/2024 3:21 AM EST) Magnesium 0.84 0.69 - 1.07 mMol/L 06/08/2024 3:59 AM [facility] Blood VENOUS BLOOD SPECIMEN / Unknown Venipuncture / Unknown 06/08/2024 3:21 AM EST 06/08/2024 3:27 AM EST Shahnaz Scanlon MD CHEMISTRY ORDERABLES [facility] [place] [address] * (ABNORMAL) Basic Metabolic Panel (06/08/2024 3:21 AM EST) Glucose 173 65 - 199 mg/dL 06/08/2024 3:59 AM [facility] Comment:Glucose Concentratio n >=200 mg/dL plus symptoms is consistent with Diabetes Mellitus. Blood Urea Nitrogen 25(H) 10 - 20 mg/dL 06/08/2024 3:59 AM [facility] Creatinine 1.09 0.80 - 1.50 mg/dL 06/08/2024 3:[address] [facility] Sodium 135 135 - 145 [...] 8.5 - 10.5 mg/dL 06/08/2024 3:59 AM [facility] Est Glomerular Filtration Rate - Male 74 mL/min/1. 73 m?? 06/08/2024 3:[address] [facility] [...] MD CHEMISTRY ORDERABLES [facility] [place] [address] * POC, GLUCOSE (06/07/2024 11:57 PM EST) [...] Address City/[facility]/ZIP Co de Phone Number [facility] [place] [address] * POC, GLUCOSE (06/07/2024 8:05 PM EST) [...] Organization Address [facility] Co de Phone Number [facility] [place] [address] * Potassium (06/07/2024 5:22 PM EST) Potassium 4.6 3.5 - 5.0 mMol/L 06/07/2024 5:[address] [facility] Blood VENOUS BLOOD SPECIMEN / Unknown Venipuncture / Unknown 06/07/2024 5:22 PM EST 06/07/2024 5:26 PM EST Shahnaz Scanlon MD CHEMISTRY ORDERABLES Performing Organization Address City/[facility] Co de Phone Number [facility] [place] [address] * POC, GLUCOSE (06/07/2024 4:31 PM EST) Glucometer, POC 174 65 - 199 mg/dL 06/07/2024 4:[address] [facility] Comment:Supplemental ranges: <140 mg/dL before meals <180 mg/dL all other times of the day. Blood CAPILLARY BLOOD / Unknown 06/07/2024 4:31 PM EST 06/07/2024 4:34 PM EST Melida Valdes MD POINT OF CARE TEST O RDERABLES [facility] [place] [address] * MRI Cardiac Morphology Function wwo Contrast (06/07/2024 1:10 PM EST) Pathologist [employer] WORKSTATION ID [id number] DH RAD Anatomical Region Laterality Modality Magnetic [...] - Mildly dilated left ventricle size with [id number] decreased LV systolic function. ??LV ejection fraction [...] who have questions please contact the health medicare sales representative that requested your imaging first. ? Narrative [...] VENTRICLE: Mildly dilated left ventricle size with [id number] decreased LV systolic function. ??LV ejection fraction [...] VENTRICLE: Mildly dilated left ventricle size with [id number] decreasedLV systolic function. LV ejection fraction is [...] - Mildly dilated left ventricle size with [id number] decreasedLV systolic function. LV ejection fraction is [...] patients who have questions please contactthe health medicare sales representative that requested your imaging first. Delroy Fofana MD [facility] ORDERABLES * (ABNORMAL) POC, GLUCOSE (06/07/2024 [...] TEST O RDERABLES [facility] [place] [address] * (ABNORMAL) POC, GLUCOSE (06/07/2024 11:03 AM EST) Glucometer, POC 250(H) 65 - 199 mg/dL 06/07/2024 11:[address] [facility] Comment:Supplemental ranges: <140 mg/dL before meals <180 mg/dL all other times of the day. Blood CAPILLARY BLOOD / Unknown 06/07/2024 11:03 AM EST 06/07/2024 11:04 AM EST Melida Valdes MD POINT OF CARE TEST O RDERABLES [facility] [place] [address] * Potassium (06/07/2024 9:44 AM EST) Potassium 4.7 3.5 - 5.0 mMol/L 06/07/2024 10:[address] [facility] Blood VENOUS BLOOD SPECIMEN / Unknown Venipuncture / Unknown 06/07/2024 9:44 AM EST 06/07/2024 9:57 AM EST Shahnaz Scanlon MD CHEMISTRY ORDERABLES [facility] [place] [address] * POC, GLUCOSE (06/07/2024 7:45 AM EST) Glucometer, POC 175 65 - 199 mg/dL 06/07/2024 7:[address] [facility] Comment:Supplemental ranges: <140 mg/dL before meals <180 mg/dL all other times of the day. Blood CAPILLARY BLOOD / Unknown 06/07/2024 7:45 AM EST 06/07/2024 7:46 AM EST Melida Valdes MD POINT OF CARE TEST O RDERABLES [facility] [place] [address] * XR Chest PA & Lateral (Generic) (06/07/2024 7:03 AM EST) WORKSTATION ID [id number] RAD Anatomical Region Laterality Modality Chest N/A [...] who have questions please contact the health medicare sales representative that requested your imaging first. ? Narrative [...] patients who have questions please contactthe health medicare sales representative that requested your imaging first. Shahnaz Scanlon MD IMG DX ORDERABLES * POC, GLUCOSE (06/07/2024 4:25 AM EST) [facility] Signature Glucometer, POC 127 65 - 199 mg/dL 06/07/2024 4:[address] [facility] Comment:Supplemental ranges: <140 mg/dL before meals <180 mg/dL all other times of the day. Blood CAPILLARY BLOOD / Unknown 06/07/2024 4:25 AM EST 06/07/2024 4:26 AM EST Melida Valdes MD POINT OF CARE TEST O RDERABLES Performing Organization Address [facility]/ZIP Co de Phone Number [facility] [place] [address] * Heparin (unfractionated) Level (06/07/2024 2:41 AM [...] HEMATOLOGY ORDERABLE S [facility] [place] [address] * (ABNORMAL) CBC (with Diff) (06/07/2024 2:41 AM EST) White Blood Cell 10.06(H) 4.00 - 9.50 x10(3)/mc L 06/07/2024 2:[address] [facility] Red Blood Cell 5.02 4.58 - 5.54 x10(6)/mc L 06/07/2024 2:[address] [facility] Hemoglobin 14.8 13.7 - 16.5 [...] - 0.10 x10(3)/mc L 06/07/2024 2:58 AM [facility] [place] [...] HEMATOLOGY ORDERABLE S [facility] [place] [address] * Magnesium (06/07/2024 2:41 AM EST) Magnesium 0.92 0.69 - 1.07 mMol/L 06/07/2024 3:25 AM [facility] Blood VENOUS BLOOD SPECIMEN / Unknown Venipuncture / Unknown 06/07/2024 2:41 AM EST 06/07/2024 2:51 AM EST Shahnaz Scanlon MD CHEMISTRY ORDERABLES [facility] [place] [address] * (ABNORMAL) Basic Metabolic Panel (06/07/2024 2:41 [...] Address City/[facility]/ZIP Co de Phone Number [facility] [place] [address] * POC, GLUCOSE (06/07/2024 12:08 AM EST) [...] Organization Address [facility] Co de Phone Number [facility] [place] [address] * POC, GLUCOSE (06/06/2024 8:18 PM EST) [...] Address City/[facility]/ZIP Co de Phone Number [facility] [place] [address] * POC, GLUCOSE (06/06/2024 3:39 PM EST) [...] Address City/[facility]/ZIP Co de Phone Number [facility] [place] [address] * Potassium (06/06/2024 2:37 PM EST) Potassium 4.3 3.5 - 5.0 mMol/L 06/06/2024 3:[address] [facility] Blood VENOUS BLOOD SPECIMEN / Unknown Venipuncture / Unknown 06/06/2024 2:37 PM EST 06/06/2024 2:42 PM EST Shahnaz Scanlon MD CHEMISTRY ORDERABLES Performing Organization Address [facility] Co de Phone Number [facility] [place] [address] * (ABNORMAL) POC, GLUCOSE (06/06/2024 1:39 PM [...] Address City/[facility]/ZIP Co de Phone Number [facility] [place] [address] * (ABNORMAL) POC, GLUCOSE (06/06/2024 11:34 AM EST) Glucometer, POC 264(H) 65 - 199 mg/dL 06/06/2024 11:[address] [facility] Comment:Supplemental ranges: <140 mg/dL before meals <180 mg/dL all other times of the day. Blood CAPILLARY BLOOD / Unknown 06/06/2024 11:34 AM EST 06/06/2024 11:35 AM EST Melida Valdes MD POINT OF CARE TEST O RDBECKIE Performing Organization Address City/[facility] Co de Phone Number [facility] [place] [address] * Potassium (06/06/2024 10:17 AM EST) Potassium 4.3 3.5 - 5.0 mMol/L 06/06/2024 10:[address] [facility] Blood VENOUS BLOOD SPECIMEN / Unknown Venipuncture / Unknown 06/06/2024 10:17 AM EST 06/06/2024 10:22 AM EST Shahnaz Scanlon MD CHEMISTRY ORDERABLES Performing Organization Address [facility] Co de Phone Number [facility] [place] [address] * POC, GLUCOSE (06/06/2024 7:57 AM EST) Glucometer, POC 195 65 - 199 mg/dL 06/06/2024 8:[address] [facility] Comment:Supplemental ranges: <140 mg/dL before meals <180 mg/dL all other times of the day. Blood CAPILLARY BLOOD / Unknown 06/06/2024 7:57 AM EST 06/06/2024 8:03 AM EST Melida Valdes MD POINT OF CARE TEST O RDERAPIETER Performing Organization Address City/[facility] Co de Phone Number [facility] [place] [address] * POC, GLUCOSE (06/06/2024 6:53 AM EST) [...] Address City/[facility]/ZIP Co de Phone Number [facility] [place] [address] * (ABNORMAL) Hemoglobin A1c (06/06/2024 3:33 AM EST) [facility] Hemoglobin A1c 7.1(H) 4.3 - 5.6 % [...] red blood cell turnover may not be ambulatory services representative of glycemic control. Reference Interval: 4.3 - 5.6% 5.7 - 6.4%: Consistent with prediabetes >=6.5%: Consistent with diagnosis of diabetes mellitus Estimated Average Glucose 157 mg/dL 06/06/2024 1:[address] [facility] Blood VENOUS BLOOD SPECIMEN / Unknown Venipuncture / Unknown 06/06/2024 3:33 AM EST 06/06/2024 3:48 AM EST Alejandra Baumann APRN CHEMISTRY ORDERAB LES Performing Organization Address City/[facility]/ZIP Co de Phone Number [facility] [place] [address] * Heparin (unfractionated) Level (06/06/2024 3:33 AM EST) Pathologist [facility] Heparin 0.36 IU/mL 06/06/2024 3:59 AM [...] MD HEMATOLOGY ORDERABLE S Performing Organization Address City/State/[facility] Co de Phone Number [facility] [place] [address] * (ABNORMAL) CBC (with Diff) (06/06/2024 3:33 AM EST) Pathologist [facility] White Blood Cell 9.81(H) 4.00 - 9.50 x10(3)/mc L 06/06/2024 3:[address] [facility] Red Blood Cell 4.91 4.58 - 5.54 x10(6)/mc L 06/06/2024 3:[address] [facility] Hemoglobin 14.6 13.7 - 16.5 g/dL 06/06/2024 3:[address] [facility] Hematocrit 45.4 40.5 - 48.5 [...] 0.90 x10(3)/mc L 06/06/2024 3:[address] [facility] Eos % 3.0 % 06/06/2024 3:[address] [facility] Eos Absolute 0.29 0.00 - 0.40 x10(3)/mc L 06/06/2024 3:[address] [facility] Basophil % 0.9 % 06/06/2024 [...] HEMATOLOGY ORDERABLE S [facility] [place] [address] * Magnesium (06/06/2024 3:33 AM EST) Magnesium 0.92 0.69 - 1.07 mMol/L 06/06/2024 4:[address] [facility] Blood VENOUS BLOOD SPECIMEN / Unknown Venipuncture / Unknown 06/06/2024 3:33 AM EST 06/06/2024 3:47 AM EST Shahnaz Scanlon MD CHEMISTRY ORDERABLES [facility] [place] [address] * (ABNORMAL) Basic Metabolic Panel (06/06/2024 3:33 [...] 72 mL/min/1. 73 m?? 06/06/2024 4:17 AM [facility] Comment: [...] MD CHEMISTRY ORDERABLES [facility] [place] [address] * (ABNORMAL) POC, GLUCOSE (06/05/2024 10:31 PM EDT) Glucometer, POC 238(H) 65 - 199 mg/dL 06/05/2024 10:[address] [facility] Comment:Supplemental ranges: <140 mg/dL before meals <180 mg/dL all other times of the day. Blood CAPILLARY BLOOD / Unknown 06/05/2024 10:31 PM EDT 06/05/2024 10:31 PM EDT Melida Valdes MD POINT OF CARE TEST O RDERABLES [facility] [place] [address] * (ABNORMAL) POC, GLUCOSE (06/05/2024 4:22 PM EDT) Glucometer, POC 205(H) 65 - 199 mg/dL 06/05/2024 4:[address] [facility] Comment:Supplemental ranges: <140 mg/dL before meals <180 mg/dL all other times of the day. Blood CAPILLARY BLOOD / Unknown 06/05/2024 4:22 PM EDT 06/05/2024 4:23 PM EDT Melida Valdes MD POINT OF CARE TEST O RDERAPIETER [facility] [place] [address] * (ABNORMAL) POC, GLUCOSE (06/05/2024 11:34 AM EDT) Glucometer, POC 211(H) 65 - 199 mg/dL 06/05/2024 11:[address] [facility] Comment:Supplemental ranges: <140 mg/dL before meals <180 mg/dL all other times of the day. Blood CAPILLARY BLOOD / Unknown 06/05/2024 11:34 AM EDT 06/05/2024 11:34 AM EDT Melida Valdes MD POINT OF CARE TEST O NIKA Performing Organization Address City/[facility] Co de Phone Number [facility] [place] [address] * Potassium (06/05/2024 9:04 AM EDT) Potassium 4.3 3.5 - 5.0 mMol/L 06/05/2024 9:[address] [facility] Blood VENOUS BLOOD SPECIMEN / Unknown Venipuncture / Unknown 06/05/2024 9:04 AM EDT 06/05/2024 9:21 AM EDT Shahnaz Scanlon MD CHEMISTRY ORDERABLES Performing Organization Address [facility] Co de Phone Number [facility] [place] [address] * POC, GLUCOSE (06/05/2024 7:27 AM EDT) [...] Organization Address [facility] Co de Phone Number [facility] [place] [address] * Heparin (unfractionated) Level (06/05/2024 3:44 AM [...] HEMATOLOGY ORDERABLE S [facility] [place] [address] * (ABNORMAL) CBC (with Diff) (06/05/2024 3:44 AM EDT) White Blood Cell 10.83(H) 4.00 - 9.50 x10(3)/mc L 06/05/2024 3:[address] [facility] Red Blood Cell 5.07 4.58 - 5.54 x10(6)/mc L 06/05/2024 3:[address] [facility] Hemoglobin 15.3 13.7 - 16.5 g/dL 06/05/2024 3:[address] [facility] Hematocrit 46.8 40.5 - 48.5 % 06/05/2024 3:[address] [facility] Mean Cell Volume 92.3 82.9 [...] - 0.90 x10(3)/mc L 06/05/2024 3:56 AM [facility] Eos % 2.2 % [...] HEMATOLOGY ORDERABLE S [facility] [place] [address] * Magnesium (06/05/2024 3:44 AM EDT) Magnesium 0.92 0.69 - 1.07 mMol/L 06/05/2024 4:[address] [facility] Blood VENOUS BLOOD SPECIMEN / Unknown Venipuncture / Unknown 06/05/2024 3:44 AM EDT 06/05/2024 3:50 AM EDT Shahnaz Scanlon MD CHEMISTRY ORDERABLES [facility] [place] [address] * (ABNORMAL) Basic Metabolic Panel (06/05/2024 3:44 [...] Address City/[facility]/ZIP Co de Phone Number [facility] [place] [address] * Potassium (06/04/2024 10:34 PM EDT) Potassium 3.7 3.5 - 5.0 mMol/L 06/04/2024 11:[address] [facility] Blood VENOUS BLOOD SPECIMEN / Unknown Venipuncture / Unknown 06/04/2024 10:34 PM EDT 06/04/2024 10:39 PM EDT Shahnaz Scanlon MD CHEMISTRY ORDERABLES Performing Organization Address [facility] Co de Phone Number [facility] [place] [address] * POC, GLUCOSE (06/04/2024 7:43 PM EDT) Glucometer, POC 175 65 - 199 mg/dL 06/04/2024 7:[address] [facility] Comment:Supplemental ranges: <140 mg/dL before meals <180 mg/dL all other times of the day. Blood CAPILLARY BLOOD / Unknown 06/04/2024 7:43 PM EDT 06/04/2024 7:43 PM EDT Melida Valdes MD POINT OF CARE TEST O RDERABLES [facility] [place] [address] * Potassium (06/04/2024 4:35 PM EDT) Potassium 4.0 3.5 - 5.0 mMol/L 06/04/2024 5:[address] [facility] Blood VENOUS BLOOD SPECIMEN / Unknown Venipuncture / Unknown 06/04/2024 4:35 PM EDT 06/04/2024 4:40 PM EDT Shahnaz Scanlon MD CHEMISTRY ORDERABLES Performing Organization Address [facility] Co de Phone Number [facility] [place] [address] * POC, GLUCOSE (06/04/2024 3:26 PM EDT) [...] Organization Address [facility] Co de Phone Number [facility] [place] [address] * POC, GLUCOSE (06/04/2024 11:09 AM EDT) [...] Organization Address [facility] Co de Phone Number [facility] [place] [address] * Heparin (unfractionated) Level (06/04/2024 10:41 AM [...] HEMATOLOGY ORDERABLE S [facility] [place] [address] * Potassium (06/04/2024 10:41 AM EDT) Pathologist [facility] Potassium 4.0 3.5 - 5.0 mMol/L 06/04/2024 11:[address] [facility] Blood VENOUS BLOOD SPECIMEN / Unknown Venipuncture / Unknown 06/04/2024 10:41 AM EDT 06/04/2024 10:46 AM EDT Shahnaz Scanlon MD CHEMISTRY ORDERABLES Performing Organization Address City/[facility]/ZIP Co de Phone Number [facility] [place] [address] * POC, GLUCOSE (06/04/2024 7:11 AM EDT) [...] Organization Address [facility] Co de Phone Number [facility] [place] [address] * Heparin (unfractionated) Level (06/04/2024 4:38 AM [...] Organization Address [facility]/ZIP Co de Phone Number [facility] [place] [address] * (ABNORMAL) CBC (with Diff) (06/04/2024 4:38 [...] Neutrophil % 60.3 % 06/04/2024 5:12 AM [facility] Neutrophil Absolute (ANC) - Automated 6.91(H) 1.70 - 6.10 x10(3)/mc L 06/04/2024 5:[address] [facility] Lymph % 25.1 % 06/04/2024 5:[address] [facility] Lymph Absolute 2.87 0.90 - 3.20 x10(3)/mc L 06/04/2024 5:[address] [facility] Monocyte % 10.6 % 06/04/2024 5:[address] [facility] Monocyte Absolute 1.21(H) 0.30 - 0.90 x10(3)/mc L 06/04/2024 5:[address] [facility] Eos % 2.8 % 06/04/2024 5:[address] [facility] Eos Absolute 0.32 0.00 - 0.40 x10(3)/mc L 06/04/2024 5:[address] [facility] Basophil % 0.7 % 06/04/2024 5:[address] [facility] Baso Absolute 0.08 0.00 - 0.10 x10(3)/mc L 06/04/2024 5:[address] [facility] Immature Gran % 0.5 % 5:[address] [facility] Immature Gran Absolute 0.06(H) 0.00 - 0.04 x10(3)/mc L 06/04/2024 5:[address] [facility] Blood VENOUS BLOOD SPECIMEN / Unknown Venipuncture / Unknown 06/04/2024 4:38 AM EDT 06/04/2024 5:07 AM EDT Shahnaz Scanlon MD HEMATOLOGY ORDERABLE S [facility] [place] [address] * Magnesium (06/04/2024 4:38 AM EDT) Magnesium 0.84 0.69 - 1.07 mMol/L 06/04/2024 5:[address] [facility] Blood VENOUS BLOOD SPECIMEN / Unknown Venipuncture / Unknown 06/04/2024 4:38 AM EDT 06/04/2024 5:07 AM EDT Shahnaz Scanlon MD CHEMISTRY ORDERABLES [facility] [place] [address] * (ABNORMAL) Basic Metabolic Panel (06/04/2024 4:38 AM EDT) Glucose 118 65 - 199 mg/dL 06/04/2024 5:[address] [facility] Comment:Glucose Concentratio n >=200 mg/dL plus symptoms is consistent with Diabetes Mellitus. Blood Urea Nitrogen 22(H) 10 - 20 mg/dL 06/04/2024 5:[address] [facility] Creatinine 1.22 0.80 - 1.50 mg/dL 06/04/2024 5:35 AM [facility] Sodium 137 135 - 145 mMol/L 06/04/2024 5:35 AM [facility] Potassium 3.6 3.5 - 5.0 mMol/L 06/04/2024 5:35 AM [facility] Chloride 97(L) 98 - 107 mMol/L 06/04/2024 5:[address] [facility] Carbon Dioxide 29 22 - 31 mMol/L 06/04/2024 5:[address] [facility] Anion Gap 11 5 - 15 mMol/L 06/04/2024 5:35 AM [facility] Calcium 9.0 8.5 - 10.5 mg/dL 06/04/2024 5:[facility] Est Glomerular Filtration Rate - Male 65 mL/min/1. 73 m?? 06/04/2024 5:35 AM [facility] Comment: This patient's [...] MD CHEMISTRY ORDERABLES [facility] [place] [address] * Heparin (unfractionated) Level (06/03/2024 8:58 PM [...] HEMATOLOGY ORDERABLE S [facility] [place] [address] * POC, GLUCOSE (06/03/2024 8:05 PM EDT) [...] Organization Address [facility] Co de Phone Number [facility] [place] [address] * POC, GLUCOSE (06/03/2024 5:48 PM EDT) [...] Address City/[facility]/ZIP Co de Phone Number [facility] [place] [address] * CT Chest wo Contrast (Generic) (06/03/2024 4:33 PM EDT) WORKSTATION ID [id number] DH RAD Anatomical Region Laterality Modality Chest Computed Tomogra phy Impressions 06/03/2024 4:47 PM EDT Cardiomegaly. Biventricular ICD leads in place. Thank you for letting us participate in the care of this patient. ??If you are a health care provider and have any questions regarding this report, please contact the number below. ??For patients who have questions please contact the health medicare sales representative that requested your imaging first. ? Narrative [...] patients who have questions please contactthe health medicare sales representative that requested your imaging first. Bobby Loja MD IMG CT ORDERABLES * Carotid Duplex, Bilateral (06/03/2024 2:19 PM EDT) VB Text Report Department: Vascular Surgery Lab Patient: [id number] (GEORGE MEHTA) CPT: 19226 Referring Physician: BOBBY LOJA ?? Phone: Indications: [...] Loja MD VASCULAR ORDERABLES Performing Organization Address [facility] de Phone Number [id number] * [...] HEMATOLOGY ORDERABLE S Performing Organization Address City/[facility] Co de Phone Number [facility] [place] [address] * POC, GLUCOSE (06/03/2024 11:14 AM EDT) Glucometer, POC 166 65 - 199 mg/dL 06/03/2024 11:[address] [facility] Comment:Supplemental ranges: <140 mg/dL before meals <180 mg/dL all other times of the day. Blood CAPILLARY BLOOD / Unknown 06/03/2024 11:14 AM EDT 06/03/2024 11:14 AM EDT Delroy Fofana MD POINT OF CARE TEST ORDERABLES [facility] [place] [address] * (ABNORMAL) Troponin-T, High Sensitivity 3 Hour [...] troponin value can be found in the [facility] Laboratory Test Catalog Troponin - https://one-.testcatalog.org/catalogs/565/files/62047 Reference: Fourth [place] Definition of Myocardial Infarction. Journal of the [place] [employer] 2018;72:4048-9101 Troponin-T, HS 3 hr delta 06/03/2024 10:[address] [facility] Comment:Delta troponin value not calculated, sample collected outside of delta calculation time limit. Blood VENOUS BLOOD SPECIMEN / Unknown IP Care Team Draw / Unknown 06/03/2024 10:06 AM EDT 06/03/2024 10:15 AM EDT Delroy Fofana MD CHEMISTRY [facility] [address] * ECHO COMPLETE W CONTRAST (06/03/2024 8:46 AM EDT) Anatomical Region Laterality Modality Cardiac Other 06/03/2024 6:52 AM EDT Narrative 06/03/2024 10:32 AM EDT [address] [place] [address] ? Echocardiogram Report Name: GEORGE MEHTA Raad ?Study Date: 06/03/2024 06:52 AM : 1955 ? Height: 168 cm ? Account: [id number] Age: 69 yrs ? Weight: 102 kg Gender: Male ?BSA: 2.1 m2 Ordering Physician: SHAHNAZ SCANLON Referring Physician: NEHAL QUINTERO Performed By: Sara Kebede RDCS Reason For Study: STEMI Exam Location: [facility]. Interpretation Summary -Left ventricular systolic [...] fellow performed study of today's date). Procedure Complete-[id number]. Image enhancement Optison was used for left [...] Note Jonnie Jordan MD - 06/03/2024 [address] [place] [address] Echocardiogram Report Name: GEORGE MEHTA Study Date: 406:52 AM : 1955 Height: 168 cm Account: [id number] Age: 69 yrs Weight: 102 kg Gender: Male BSA: 2.1 m2 Ordering Physician: SHAHNAZ SCANLON Referring Physician: NEHAL QUINTERO Performed By: Sara Kebede RDCS Reason For Study: STEMI Exam Location: [facility]. Interpretation Summary -Left ventricular systolic [...] a fellow performed study of's date). Procedure Complete-[id number]. Image enhancement Optison was used for left [...] troponin value can be found in the [facility] Laboratory Test Catalog Troponin - [email or web address] heart instituteYeti Data.testcatalog.org/catalogs/565/files/76161 Reference: Fourth [place] Definition of Myocardial Infarction. Journal of the [place] College [employer]iology 2018;72:1567-5624 Troponin-T, HS 1 hr delta 5 ng/L [...] CHEMISTRY ORDERABLE S [facility] [place] [address] * POC, GLUCOSE (06/03/2024 7:54 AM EDT) [facility] Signature Glucometer, POC 195 65 - 199 mg/dL 06/03/2024 7:[address] [facility] Comment:Supplemental ranges: <140 mg/dL before meals <180 mg/dL all other times of the day. Blood CAPILLARY BLOOD / Unknown 06/03/2024 7:54 AM EDT 06/03/2024 7:55 AM EDT Nuha Rojo MD POINT OF CARE TEST ORDERABLES [facility] [place] [address] * (ABNORMAL) Troponin-T, High Sensitivity (06/03/2024 7:39 AM EDT) Pathologist [facility] Troponin-T, High Sensitivity Initial 284(H) <=22 ng/L [...] troponin value can be found in the [facility] Test Catalog Troponin - [email or web address] Reference: Fourth [place] Definition of Myocardial Infarction. Journal of the [place] [employer] 2018;72:3368-5582 Blood VENOUS BLOOD SPECIMEN / Unknown IP Care Team Draw / Unknown 06/03/2024 7:39 AM EDT 06/03/2024 7:48 AM EDT Delroy Fofana MD CHEMISTRY ORDERABLE S [facility] [place] [address] * (ABNORMAL) Troponin-T, High Sensitivity 3 Hour [...] troponin value can be found in the [facility] Test Catalog Troponin - [email or web address] Reference: Fourth [place]ppen[place] Definition of Myocardial Infarction. Journal of the [place] [employer] 2018;72:0675-9777 Troponin-T, HS 3 hr delta 46 ng/L [...] MD CHEMISTRY ORDERABLES [facility] [place] [address] * (ABNORMAL) Troponin-T, High Sensitivity 1 Hour [...] troponin value can be found in the [facility] Laboratory Test Catalog Troponin - https://[facility]-.testcatalog.org/catalogs/565/files/01678 Reference: Fourth [place] Definition of Myocardial Infarction. Journal of the [place] [employer] 2018;72:8437-1125 Troponin-T, HS 1 hr delta 10 ng/L [...] MD CHEMISTRY ORDERABLES [facility] [place] [address] * XR Chest One View (06/03/2024 2:41 AM EDT) WORKSTATION ID [id number] RAD Anatomical Region Laterality Modality Chest N/A Digital Radiogra phy Impressions 06/03/2024 3:06 AM EDT No radiographically evident acute cardiopulmonary process. Thank you for letting us participate in the care of this patient. ??If you are a health care provider and have any questions regarding this report, please contact the number below. ??For patients who have questions please contact the health medicare sales representative that requested your imaging first. ? Narrative [...] patients who have questions please contactthe health medicare sales representative that requested your imaging first. Shahnaz Scanlon [...] HEMATOLOGY ORDERABLE S [facility] [place] [address] * (ABNORMAL) Troponin-T, High Sensitivity (06/03/2024 2:13 [...] troponin value can be found in the [facility] Laboratory Test Catalog Troponin - https://[facility]-.testcatalog.org/catalogs/565/files/68156 Reference: Fourth [place] Definition of Myocardial Infarction. Journal of the [place] [employer] 2018;72:0116-4559 Blood VENOUS BLOOD SPECIMEN / Unknown IP Care Team Draw / Unknown 06/03/2024 2:13 AM EDT 06/03/2024 2:32 AM EDT Shahnaz Scanlon MD CHEMISTRY ORDERABLES Performing Organization Address City/[facility]/ZIP Co de Phone Number [facility] [place] [address] * Magnesium (06/03/2024 2:13 AM EDT) Magnesium 0.86 0.69 - 1.07 mMol/L 06/03/2024 3:[address] [facility] Blood VENOUS BLOOD SPECIMEN / Unknown IP Care Team Draw / Unknown 06/03/2024 2:13 AM EDT 06/03/2024 2:32 AM EDT Shahnaz Scanlon MD CHEMISTRY ORDERABLES [facility] [place] [address] * Basic Metabolic Panel (06/03/2024 2:13 AM EDT) Glucose 126 65 - 199 mg/dL 06/03/2024 3:[address] [facility] Comment:Glucose Concentratio n >=200 mg/dL plus symptoms is consistent with Diabetes Mellitus. Blood Urea Nitrogen 20 10 - 20 mg/dL 06/03/2024 3:[address] [facility] Creatinine 1.13 0.80 - 1.50 mg/dL 06/03/2024 3:02 AM [facility] Sodium 139 135 - 145 mMol/L 06/03/2024 3:02 AM [facility] Potassium 4.2 3.5 - 5.0 mMol/L 06/03/2024 3:02 AM [facility] Chloride 101 98 - 107 mMol/L 06/03/2024 3:02 AM [facility] Carbon Dioxide 26 22 - 31 mMol/L 06/03/2024 3:[facility] Anion Gap 12 5 - 15 mMol/L 06/03/2024 3:02 AM [facility] Calcium 9.8 8.5 - 10.5 mg/dL 06/03/2024 3:02 AM [facility] Est Glomerular Filtration Rate - Male 71 mL/min/1. 73 m?? 06/03/2024 3:02 [facility] Comment: This patient's [...] MD CHEMISTRY ORDERABLES [facility] [place] [address] * (ABNORMAL) CBC (with Diff) (06/03/2024 2:13 AM EDT) White Blood Cell 11.16(H) 4.00 - 9.50 x10(3)/mc L 06/03/2024 2:37 AM [facility] Red Blood Cell 5.09 4.58 - 5.54 x10(6)/mc L 06/03/2024 2:37 AM [facility] Hemoglobin 15.0 13.7 - 16.5 g/dL 06/03/2024 2:[address] [facility] Hematocrit 47.4 40.5 - 48.5 % 06/03/2024 2:37 AM [facility] Mean Cell Volume 93.1 82.9 - 93.1 fL 06/03/2024 2:37 AM [facility] [...] Eos % 2.4 % 06/03/2024 2:37 AM [facility] Eos Absolute 0.27 0.00 [...] MD HEMATOLOGY ORDERABLE S Performing Organization Address City/State/[facility] Co de Phone Number [facility] [place] [address] * Lipid Panel (Reflex Direct LDL) (06/03/2024 2:13 AM EDT) Cholesterol, Total 76 mg/dL 06/03/2024 3:02 AM [facility] Comment: Desirable: < 200 mg/dL Borderline High: 200 - 239 mg/dL High: > or = 240 mg/dL Triglyceride 75 mg/dL 06/03/2024 3:[address] [facility] Comment: Normal: <150 mg/dL Borderline High: 150-199 mg/dL High: 200-499 mg/dL Very High: > or =500 mg/dL HDL Cholesterol 39 mg/dL 3:[address] [facility] Comment:Males: High Risk: <4 0 mg/dL LDL Cholesterol 21 mg/dL 3:02 AM [facility] Comment: Desirable: <100 mg/dL Above Desirable: 100-129 mg/dL Borderline High: 130-159 mg/dL High: 160-189 mg/dL Very High: > or =190 mg/dL Note: LDL calculation updated to the NIH LDL formula as of 03/07/2024 Non-HDL Cholesterol 37 mg/dL 06/03/2024 3:[address] [facility] Comment: Desirable: <130 mg/dL Above Desirable: 130-159 mg/dL Borderline High: 160-189 mg/dL High: 190-219 mg/dL Very High: > or = 220 mg/dL Blood VENOUS BLOOD SPECIMEN / Unknown IP Care Team Draw / Unknown 06/03/2024 2:13 AM EDT 06/03/2024 2:32 AM EDT [facility] LABORATORY - 06/03/2024 3:02 AM [...] Organization Address [facility] de Phone Number [facility] [place] [address] * (ABNORMAL) APTT (06/03/2024 2:13 AM EDT) [...] Organization Address [facility] Co de Phone Number [facility] [place] [address] * Prothrombin Time (06/03/2024 2:13 AM EDT) [...] HEMATOLOGY ORDERABLE S [facility] [place] [address] * Hepatic Function Panel (06/03/2024 2:13 AM [...] Address City/[facility]/ZIP Co de Phone Number [facility] [place] [address] * (ABNORMAL) pro-Brain Natriuretic Peptide (06/03/2024 2:13 AM EDT) NT-proBNP 1,628(H) <=124 pg/mL 06/03/2024 4:[address] [facility] Blood VENOUS BLOOD SPECIMEN / Unknown IP Care Team Draw / Unknown 06/03/2024 2:13 AM EDT 06/03/2024 2:32 AM EDT Shahnaz Scanlon MD CHEMISTRY ORDERABLES Performing Organization Address [facility] Co de Phone Number [facility] [place] [address] * Phosphorus (06/03/2024 2:13 AM EDT) Phosphorus 4.4 2.5 - 4.5 mg/dL 06/03/2024 3:[address] [facility] Blood VENOUS BLOOD SPECIMEN / Unknown IP Care Team Draw / Unknown 06/03/2024 2:13 AM EDT 06/03/2024 2:32 AM EDT Shahnaz Scanlon MD CHEMISTRY ORDERABLES Performing Organization Address City/[facility]/ZIP Co de Phone Number [facility] [place] [address] * EKG 12 Lead (06/03/2024 1:45 AM EDT) Ventricular rate 63 BPM MUSE SYSTEM Atrial Rate 63 BPM MUSE SYSTEM P-R Interval 168 ms MUSE SYSTEM QRS Duration 96 ms MUSE SYSTEM Q-T Interval 400 ms MUSE SYSTEM QTC Calculated (Bezet) 409 ms MUSE SYSTEM Calculated P [place] 65 degrees MUSE SYSTEM Calculated R [place] 70 degrees MUSE SYSTEM Calculated T [place] -86 degrees MUSE SYSTEM INTERPRETATION Atrial-sensed ventricular-paced rhythm Abnormal ECG No previous ECGs available I personally reviewed the tracing and edited the fellows interpretation Confirmed by fellow Sunni Agudelo ([id number]) on 06/04/2024 3:55:40 PM Confirmed by MD Tamia, Stuart Perry ([id number]) on 06/05/2024 11:46:48 AM MUSE SYSTEM 06/03/2024 1:45 AM EDT 06/05/2024 11:46 AM EDT Shahnaz Scanlon MD ECG ORDERABLES MUSE SYSTEM * CARDIAC CATHETERIZATION (06/03/2024 12:42 AM EDT) Anatomical Region Laterality Modality Other Narrative 06/04/2024 2:22 PM EDT ?[facility] ? Cardiac Catheterization/Intervention Report ? Patient Name: George Mehta L. ? Procedure Date: 06/02/2024 ? A #: [id number] ? Primary Physician: Nuha Shen I ? Case #: [id number] ? File Name: [id number] ? Catheterization Order Number: [id number] ? [facility] ? Final Report [place], [place] ? Patient Name: ? George L. Tyson ? ID#: ?[id number] ? : ?1955 ? Procedure Date: ? [...] was designated as ASA Class IV. The [facility] clinical frailty ?scale is 5: Mildly Frail. ? Diagnostic Tests: ?Electrocardiography: ? EKG was assessed by ECG. EKG was Abnormal. EKG showed ST Deviation ? >= 0.5 mm. ?Medications Prior to Procedure: ? Sacubitril and Valsartan, Aspirin, Beta Erik, Statin and ? Thrombolytic (any). ? Indications for Diagnostic Cath: ?The priority of the diagnostic procedure was Emergent. The indication for ?the prosthetics lab technician visit is ACS less than [...] ?3.5 guiding catheter and a 3.5 Fr [facility] 20 Mhz using Manual ?pullback. ??Imaging was [...] 3.5 guiding catheter and a 3.5 Fr [facility] 20 Mhz using ?Manual pullback. ??Imaging was [...] - 07/20/2024 [facility] Cardiac Catheterization/Intervention Report Patient Name: George Mehta Procedure Date: 06/02/2024 A #: [id number] Primary Physician: Nuha Shen I Case #: [id number] File Name: [id number] Catheterization Order Number: [id number] [facility] FinalReport [place], [place] Patient Name: George Mehta ID#:[id number] :1955 Procedure Date: June 02, 2024 Case #: [id number] Room: 5 Case Physician: Nuha Shen M.D. Start: 23:23 Admission:06/02/2024 Referring Physician: Junaid Randall Discharge:06/21/2024 Procedures: * Coronary Angiography * Left Heart Catheterization * Coronary Ultrasound Pre Case Status: These procedures were performed on an emergent basis. History Geogre Mehta is a 69 year old man. [...] was designated as ASA Class IV. The [facility] clinicalfrailty scale is 5: Mildly Frail. Diagnostic Tests: Electrocardiography: EKG was assessed by ECG. EKG was Abnormal. EKG showed STDeviation >= 0.5 mm. Medications Prior to Procedure: Sacubitril and Valsartan, Aspirin, Beta Erik, Statin and Thrombolytic (any). Indications for Diagnostic Cath: The priority of the diagnostic procedure was Emergent. Theindication for the prosthetics lab technician visit is ACS less than [...] units of heparin were administered. A total py265cn of Omnipaque were opened, 84cc of Omnipaque were administered ndd82eu of Omnipaque were wasted. Radiation: Fluoro time [...] 3.5 guiding catheter and a 3.5 Fr [facility] 20 Mhz usingManual pullback. Imaging was successful. [...] 3.5 guiding catheter and a 3.5 Fr [facility] 20 Mhzusing Manual pullback. Imaging was successful. Indication: IVUS performed for pre intervention planning. Findings Pre-Intervention: scattered plaque, calcification and [id number] degrees calcification. Findings Post-Intervention: Stent not imaged [...] OF CARE TEST ORDERABLES Performing Organization Address City/State/[facility] Co de Phone Number [facility] [place] [phone] documented in this encounter Visit Diagnoses Not [...] 2100, Last dose on Fri06/23/24 at 0900, Patient Care recommended duration is 3 days., Routine Given [...] 8:02 PM EST 2 tablets sodium chloride ([place]) 0.65 % nasal spray 1 spray 1 [...] Lou Lane RN) 0812 (Given - Provider: iMchelle Orozco RN) 0838 (Given - Provider: Shazia [...] 2100, Last dose on Fri06/23/24 at 0900, Patient Care recommended duration is 3 days., Routine 2043 [...] oral route first line., Routine sodium chloride ([place]) 0.65 % nasal spray 1 spray 1 [...] 6 hours upon arrival to Unit. Give DE if unable to take PO, Routine Group [...] Routine documented in this encounter Care Teams Tile Shader Relationship Specialty Start Date End Date Mauro Berumen MD [address] [place] [address] PCP - General Family Medicine 06/02/24 documented as of this encounter
--- OUTSIDE RECORDS SUMMARY | 2024-09-03 10:35 | XMS_ITS | Encounter Summary ---
Author Organization [facility] Address [facility] [place] [address] Care Team Providers Care Hot Plate Press Operator Name Role Phone Mauro Berumen MD Primary Care Provider [phone] Encounter Details Date Type Department Care Team (Late st Contact Info) Description 06/03/2024 Orders Only Cardiology [facility] [place] [phone] Unknown None Social History Tobacco Use Types Packs/Day Years Used Date Smoking Tobacco: Every Day Cigarettes Smokeless Tobacco: Never [facility] Utilities Answer Date Recorded In the past 12 months has th e electric, gas, oil, or water [employer] threatened to shut off services in your [...] PM EST Office Visit Cardiology at [address] [phone] Moi Falcon MD [facility] [place] [address] documented as of this encounter Procedures Procedure Name Priority Date/Time Associated Diagnosis Comments ECHOCARDIOGRAM TRANSTHORACIC Routine 06/03/2024 2:23 AM EDT documented in this encounter Results * Echocardiogram Transthoracic (06/03/2024 2:23 AM EDT) Anatomical Region Laterality Modality Cardiac Other 06/03/2024 2:23 AM EDT Narrative 06/03/2024 10:32 AM EDT [address] [place] [id number] ? Echocardiogram Report Name: ARTURO NICHOLS ?Study Date: 06/03/2024 02:23 AM : 1955 Age: 69 yrs Gender: Male Performed By: Sascha Silva MD Reason For Study: STEMI Interpreting Fellow: Sascha Silva. Interpretation Summary Limited echo performed by fellow nutritional services director to assess LV function. Left ventricle is mild to moderately dilated. Left ventricular ejection fraction is estimated visually at 25%. There is global dyskinesia with mid-basilar posterior-posterolateral akinesis. Right ventricle is not well seen. RV systolic function is probably normal. There is no prior echo for comparison. Procedure Limited - 26533. Suboptimal quality. Ventricular paced. Left Ventricle Left [...] Note Jonnie Jordan MD - 06/03/2024 [address] [place] [address] Echocardiogram Report Name: ARTURO NICHOLS Study Date: 06/03/2024 02:23AM : 1955 Age: 69 yrs Gender: Male Performed By: Sascha Silva MD Reason For Study: STEMI Interpreting Fellow: Sascha Silva. Interpretation Summary Limited echo performed by fellow nutritional services director to assess LV function. Left ventricle is mild to moderately dilated. Left ventricular ejectionfraction is estimated visually at 25%. There is global dyskinesia withmid-basilar posterior-posterolateral akinesis. Right ventricle is not well seen. RV systolic function is probablynormal. There is no prior echo for comparison. Procedure Limited - 18768. Suboptimal quality. Ventricular paced. Left Ventricle Left [...] on filedocumented in this encounter Care Teams Hot Plate Press Operator Relationship Specialty Start Date End Date Mauro Berumen MD [address] [place] [id number] PCP - General Family Medicine 06/02/24 documented as of this encounter
--- OUTSIDE RECORDS SUMMARY | 2024-09-03 10:37 | XMS_ITS | Encounter Summary ---
Author Organization Formerly [facility] [place] [address] Care Team Providers Care Supervisor Blood Name Role Phone Mauro Berumen MD Primary Care Provider [phone] Reason for Visit * Auth/Cert Specialty Diagnoses / Procedures Referred By Carroll lopez Referred To Contact Diagnoses STEMI (ST elevation myocardial infarction) STEMI Procedures CARDIAC CATHETERIZATION EMERGENCY Delroy Monterroso MD [facility] [address] [place] [address] [facility] Referral ID Status Reason Start Date Expiration Date Visits Re quested Visits Authorized [id number] 1 1 Encounter Details Date Type Department Care Team (Late st Contact Info) Description 06/02/2024 11:00 PM EDT - 06/03/2024 12:18 AM EDT [place] [address] Nuha Shen MD [facility] [place] [address] [place] [address] CARDIAC CATHETERIZATION Social History Tobacco Use Types Packs/Day Years Used Date Smoking Tobacco: Every Day Cigarettes Smokeless Tobacco: Never Tobacco Cessation:Ready to Q uit: No; Counseling Given: Yes [facility] Utilities Answer Date Recorded In the past 12 months has [employer], gas, oil, or water [employer] threatened to shut off services in [...] any time in the past 12 m [facility], were you homeless or [...] Patient Age: 69 y.o. Birthdate: 1955 Language: Albanian Race: Choose not to Disclose Ethnicity: Not nor Admit Date: 06/02/2024 Discharge Date: 06/21/2024 Attending Physician: Bobby Loja MD Follow-up Recommendations for Providers: Please continue routine management of cardiovascular risk factors including blood pressure, lipids,glucose, etc. Please note any changes to medications. Patient to follow up with PCP, Mauro Berumen MD, in 1-2 weeks. Patient to follow up with Cooler Operator, Kristen Cardenas in 2-3 weeks. Patient to follow up with Cardiac Surgeon, Dr. Bobby Loja, in 4 wks. Inpatient Provider Contact Information: [facility] Section of Cardiac Surgery [facility] [address] FAX [phone] Discharge Diagnoses (Hospital Problems) Primary Diagnoses: STEMI [...] performed by Bobby Loja MD [facility] OR PRO CABG, ARTERY-VEIN, TWO N/A 06/14/2024 @CABG, TWO VENOUS GRAFTS & ARTERIAL GRAFT (WRVU 7.93) [facility] ENDOSCOPY W/VIDEO-ASST VEIN HARVEST, CABG N/A 06/14/2024 ENDOSCOPIC HARVEST VEIN(S) FOR CABG (WRVU 0.31) performed by Bobby Loja MD at [facility] MAIN OR PRO EXC MEDIASTINAL TUMOR N/A 06/14/2024 @EXCISION OF MEDIASTINAL TUMOR (WRVU 19.55) performed by Bobby Loja MD at [facility] OR PRO INSERT INTRA-AORTIC BALLOON ASST DEVICE PERCUTANEOUS N/A 06/13/2024 @INSERTION OF IABP,PERCUTANEOUS (WRVU 4.84) performed by Nuha Shen MD at [facility] CATH LABS PRO UNLISTED CARDIAC SURG PROCEDURE N/A 06/14/2024 EXPLORATION AND OVERSEW ATRIAL APPENDAGE (WRVU 5.94) performed by Bobby Loja MD at [facility] [place] Prior To Admission Medications Medications [...] melanoma, and smoker who presented to [facility] last night via EMS after developing acute, severe chest pain while watching TV. Patient was ruled in for STEMI, given TNK, ASA, plavix, heparin gtt, and sent to [facility] for coronary angiography. LHC demonstrated severely calcified left coronary system with notable LCx 75/80% lesions and PICKLING SOLUTION MAKER OM1 with ISR with collateral retrograde [...] Hospital Course: George Mehta was admitted to [facility] on 06/02/2024 via the CardiologyService with an anterior STEMI after receiving lytics at OSH. He was brought to the [employer] which showed severely calcified left coronary system with notable LCx 75/80% lesions and PICKLING SOLUTION MAKER OM1 with ISR with collateral retrograde [...] juice or regular (not diet) soda 6 Hive guard unlimitedavers small box of raisins 4 glucose tablets [...] 2 tablespoons of dried fruit. Milk and ln-ckvtb-zxdfd yogurt have 15 grams of carbs in a serving. A serving is 1 cup of milk or 3/4 cup (6 oz) of kn-zcpgt-pizsn yogurt. Starchy vegetables have 15 grams of carbs in a serving. A serving is ?? cup of mashed potatoes or sweet potato; 1 cup winter squash; ?? of a small baked potato; ?? cup of cooked beans; or ?? cup cooked corn or green peas. Learn how much carbs to eat each day and at each meal. A dietitian or certified orthotist practice manager can teach you how to keep track [...] Bobby Loja and/or the Cardiac Surgery Physician Copy Manager Team may be reached at . Weight: [...] Dr. Bobby Loja. You may use a [place] Track or treadmill but avoid any pulling [...] friends, go to a movie, go to sabianist, etc. Heavy activities: No hunting, skiing, jogging, snow shoveling, snowmobiling, lawn mowing, swimming,golf or tennis until after your return appointment with the surgeon. Do not ride motorcycles, [employer]'stractors or horses. Avoid the use of a [...] should resume a low fat, low cholesterol, [place] Heart Association Diet/Diabetic diet. Driving: No driving [...] while being managed by your PCP and/or Cooler Operator. For future medication refills, please refer to your PCP and/or Cooler Operator after your discharge from our service. Thank you REMOVE CHEST TUBE SUTURES ON OR AFTER 06/24/2024 Home oxygen therapy: N/A Follow up appointments: You should follow up with your PCP, Mauro Berumen MD, in 1-2 weeks. You should follow up with your Cooler Operator, Dr CARDENAS. You have an appointment with your Cardiac Surgeon, Dr. Bobby Loja, in 4 wks. Cardiac Rehabilitation: George Mehta was seen today regarding participation in the outpatient Phase 2 Cardiac Rehabilitation at [facility]. The patient agrees to a referral to this program. The referral will be sent at discharge and the patient should be contacted by the program within 1-2 weeks from discharge. Future Appointments and Orders Future Orders Complete By Expires Referral to Cardiac Rehab [[id number] Custom] As directed Process Instructions: If no progress note charted, please enter Clinical details in comments. Scheduling Instructions: Questions: My question or request is: s/p CABG- cardiac rehab at [facility] Referral to Home Health [REF34 Custom] As directed Process Instructions: If no progress note charted, please enter Clinical details in comments. Scheduling Instructions: Comments: Please evaluate George Mehta for admission to Home Health. [address] [facility] [address] (home) Date of : 1955 Inpatient DOCUMENTATION FOR VNA SERVICES (INCLUDING THOSE PATIENTS WITH MEDICARE COVERAGE REQUIRINGHOME VNA SERVICES AND/OR HOSPICE SERVICES) PATIENT'S LOCATION: George Mehta [address] [place] [address] [address] [facility] [address] (home) Telephone Information: Marriage Counselor Minister's Name: self In discussion with the attending physician, it is certified that this patient is under their care and that they, or a Nurse Practitioner, or Physician Copy Manager who is working directly with them, hada [...] for services as follows: HOME HEALTH AGENCY: [facility] [address] [place] [id number] RN orders: Cardiopulmonary assessment, incisional assessment, assess [...] issues please call the Cardiology Office at [phone] FOR MEDICARE ONLY: (please delete this section [...] care: As above. Signed: KEILA HANLEY APRN [facility] Section of Cardiac Surgery [facility] [address] FAX [phone] Date: 06/21/2024 CC: MD Antonino Tinajero Joshua R, PA [address] [place] [address] [place] [id number] documented in this encounter Discharge Instructions * Discharge Instructions* Keila Halney APRN - 06/19/2024 9:22 AM EST * [...] 2 tablespoons of dried fruit. Milk and cg-wmcct-huzbr yogurt have 15 grams of carbs in a serving. A serving is 1 cup of milk or 3/4 cup (6 oz) of fw-xajvs-mwfsr yogurt. Starchy vegetables have 15 grams of carbs in a serving. A serving is ?? cup of mashed potatoes or sweet potato; 1 cup winter squash; ?? of a small baked potato; ?? cup of cooked beans; or ?? cup cooked corn or green peas. Learn how much carbs to eat each day and at each meal. A dietitian or certified orthotist practice manager can teach you how to keep track [...] Bobby Loja and/or the Cardiac Surgery Physician Copy Manager Team may be reached at . Weight: [...] Dr. Bobby Loja. You may use a [place] Track or treadmill but avoid any pulling [...] friends, go to a movie, go to sabianist, etc. Heavy activities: No hunting, skiing, jogging, snow shoveling, snowmobiling, lawn mowing, swimming,golf or tennis until after your return appointment with the surgeon. Do not ride motorcycles, [employer]'stractors or horses. Avoid the use of a [...] should resume a low fat, low cholesterol, Somal[place] Heart Association Diet/Diabetic diet. Driving: No driving [...] while being managed by your PCP and/or Cooler Operator. For future medication refills, please refer to your PCP and/or Cooler Operator after your discharge from our service. Thank you REMOVE CHEST TUBE SUTURES ON OR AFTER 06/24/2024 Home oxygen therapy: N/A Follow up appointments: You should follow up with your PCP, Mauro Berumen MD, in 1-2 weeks. You should follow up with your Cooler Operator, Dr CARDENAS. You have an appointment with your Cardiac Surgeon, Dr. Bobby Loja, in 4 wks. Cardiac Rehabilitation: George Mehta was seen today regarding participation in the outpatient Phase 2 Cardiac Rehabilitation at [facility]. The patient agrees to a referral to [...] or weekly) [] Other * Alejandra Baumann, RECORD CHANGER TESTER - 06/21/2024 7:05 AM EST Follow Up [...] MARIALUISA clipping. PMH of chronic HFrEF s/p LOGISTICAL ENGINEER/ICD, IDDM2, HTN, HLD, remote melanoma, active smoker. [...] 2 tablespoons of dried fruit. Milk and vq-jqyel-lteal yogurt have 15 grams of carbs in a serving. A serving is 1 cup of milk or 3/4 cup (6 oz) of rw-zjzfs-iaxpn yogurt. Starchy vegetables have 15 grams of carbs in a serving. A serving is ?? cup of mashed potatoes or sweet potato; 1 cup winter squash; ?? of a small baked potato; ?? cup of cooked beans; or ?? cup cooked corn or green peas. Learn how much carbs to eat each day and at each meal. A dietitian or certified orthotist practice manager can teach you how to keep track [...] [facility] [place] Endocrinology Diabetes Management Pager [phone] Weekends please page [phone] * Eric Packer PA - 06/20/2024 7:44 AM EST Cardiac Surgery Progress Note George Mehta is a 69 y.o. male with a history of CAD s/p multiple PCI who presented with an anterior STEMI and was given lytics. Cath showed MV CAD without culprit vessel. He is now 6 Days Post-OpCABGx3 and MARIALUISA clipping. PMH of chronic HFrEF s/p LOGISTICAL ENGINEER/ICD, IDDM2, HTN, HLD, remote melanoma, active smoker. Interval Events: Creatinine 1.39 from 1.29 Negative 200 mL GT S: Feels well. Pain controlled. +BM. Ambulating. 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 06/20/2024 Between the hours of 1800 - 0600 and on the weekends please page [phone]. * Alejandra Baumann, RECORD CHANGER TESTER - 06/20/2024 7:21 AM EST Follow Up Diabetes Consult Patient Interview Blood glucose values and insulin use reviewed. service desk director BG to 59 despite decrease in glargine [...] MARIALUISA clipping. PMH of chronic HFrEF s/p LOGISTICAL ENGINEER/ICD, IDDM2, HTN, HLD, remote melanoma, active smoker. service desk director BG to 59 despite decrease in glargine [...] – [place] Endocrinology Diabetes Management Pager [phone] Weekends please page [phone] Insulin Discharge Instructions Preliminary Diabetes Discharge Instructions [...] 2 tablespoons of dried fruit. Milk and wl-meqle-krufw yogurt have 15 grams of carbs in a serving. A serving is 1 cup of milk or 3/4 cup (6 oz) of ap-ywrvp-mstak yogurt. Starchy vegetables have 15 grams of carbs in a serving. A serving is ?? cup of mashed potatoes or sweet potato; 1 cup winter squash; ?? of a small baked potato; ?? cup of cooked beans; or ?? cup cooked corn or green peas. Learn how much carbs to eat each day and at each meal. A dietitian or certified orthotist practice manager can teach you how to keep track [...] MARIALUISA clipping. PMH of chronic HFrEF s/p LOGISTICAL ENGINEER/ICD, IDDM2, HTN, HLD, remote melanoma, active smoker. 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 Jeffy Hood MD 06/19/2024 Between the hours of 1800 - 0600 and on the weekends please page [phone]. * Alejandra Baumann, RECORD CHANGER TESTER - 06/19/2024 7:09 AM EST Follow Up Diabetes Consult Patient Interview Blood glucose values and insulin use reviewed. Jardiance added back yesterday, online media director low BGto 51. Glargine reduced to 45 [...] MARIALUISA clipping. PMH of chronic HFrEF s/p LOGISTICAL ENGINEER/ICD, IDDM2, HTN, HLD, remote melanoma, active smoker. Jardiance added back yesterday. service desk director low BG to 51. Glargine reduced to [...] 2 tablespoons of dried fruit. Milk and lc-mjttl-gvbxn yogurt have 15 grams of carbs in a serving. A serving is 1 cup of milk or 3/4 cup (6 oz) of ax-sqdjm-jmgwf yogurt. Starchy vegetables have 15 grams of carbs in a serving. A serving is ?? cup of mashed potatoes or sweet potato; 1 cup winter squash; ?? of a small baked potato; ?? cup of cooked beans; or ?? cup cooked corn or green peas. Learn how much carbs to eat each day and at each meal. A dietitian or certified orthotist practice manager can teach you how to keep track [...] – [place] Endocrinology Diabetes Management Pager [phone] Weekends please page [phone] * Hilda Resendez, NON CLINICAL ADVISOR - 06/18/2024 9:19 AM EST Physical Therapy Note 2 Patient profile: George Mehta is a 69 y.o. male with a history of CAD s/p multiple PCI who presented with an anterior STEMI and was given lytics. Cath showed MV CAD without culprit vessel. He is now 1 Day Post-Op CABGx3 and MARIALUISA clipping. PMH of chronic HFrEF s/p LOGISTICAL ENGINEER/ICD, IDDM2, HTN, HLD, remote melanoma, active smoker. Interval History: Per last cardiac surgery note on 06/18/2024 Cr improved 1.4 on lasix 40 iv bid -1.5L, made 2.5L urine Coreg, entresto restarted Floor status Social History: Pt lives with his in a 1 level apartment with no steps to enter. He was indep NON CLINICAL ADVISOR without a device. He drives. He sleeps [...] least restrictive device Time IN / OUT: 1043-3839 Total Time: 11 minutes; TEF 1 Hilda Resendez PTA Pager: [phone] Physical Therapy Inpatient Rehabilitation Department * Keila [...] MARIALUISA clipping. PMH of chronic HFrEF s/p LOGISTICAL ENGINEER/ICD, IDDM2, HTN, HLD, remote melanoma, active smoker. 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 Restarting jardiance #Active smoker Duoneb prn Dispo: CVCC, Full code, tx to floor Discussed with attending surgeon on rounds this morning. KEILA HANLEY, JOSÉ ANTONIO 06/18/2024 Between the hours of 1800 - 0600 and on the weekends please page [phone]. * Alejandra Baumann, RECORD CHANGER TESTER - 06/17/2024 3:29 PM EST Follow Up [...] MARIALUISA clipping. PMH of chronic HFrEF s/p LOGISTICAL ENGINEER/ICD, IDDM2, HTN, HLD, remote melanoma, active smoker. [...] – [place] Endocrinology Diabetes Management Pager [phone] Weekends please page [phone] 35 minutes were spent over the course [...] MARIALUISA clipping. PMH of chronic HFrEF s/p LOGISTICAL ENGINEER/ICD, IDDM2, HTN, HLD, remote melanoma, active smoker. [...] 0600 and on the weekends please page [phone]. * Raymond Carlton MD - 06/16/2024 1:11 PM EST CARDIAC CRITICAL CARE ATTENDING STAFF PROGRESS NOTE Patient seen and examined. George Mehta is a 69 y.o. male with: Active Hospital Problems Diagnosis STEMI (ST elevation myocardial infarction) Cardiac resynchronization therapy defibrillator (LOGISTICAL ENGINEER-D) - Medtronic Amplia Cardiomyopathy, ischemic Acute on chronic heart failure with reduced ejection fraction (HFrEF, <= 40%) Coronary artery disease involving [place] coronary artery of [place] heart without angina pectoris Type 2 diabetes [...] encouragement provided Patient screened for f/u and procedure writer met pt at bedside. Pt states [...] unless consulted in the interim. RICHA Simmons Clergy Member * Octaviano Horvath PA - 06/16/2024 8:07 AM EST Cardiac Surgery Progress Note George Mehta is a 69 y.o. male with a history of CAD s/p multiple PCI who presented with an anterior STEMI and was given lytics. Cath showed MV CAD without culprit vessel. He is now 2 Days Post-OpCABGx3 and MARIALUISA clipping. PMH of chronic HFrEF s/p LOGISTICAL ENGINEER/ICD, IDDM2, HTN, HLD, remote melanoma, active smoker. [...] 0600 and on the weekends please page [phone]. * Jono Fernandez, PT - 06/15/2024 4:09 PM EST Physical Therapy Evaluation Patient profile: George Mehta is a 69 y.o. male with a history of CAD s/p multiple PCI who presented with an anterior STEMI and was given lytics. Cath showed MV CAD without culprit vessel. He is now 1 Day Post-Op CABGx3 and MARIALUISA clipping. PMH of chronic HFrEF s/p LOGISTICAL ENGINEER/ICD, IDDM2, HTN, HLD, remote melanoma, active smoker. 24h Events: From OR on Dobutamine IABP removed Bedrest ended ~2100, sedation weaned Extubated ~0200 Dobutamine weaned to 1 this morning, CI 2.6, shut off and repeat CI 2.4 Social History: Pt lives with his in a 1 level apartment with no steps to enter. He was indep NON CLINICAL ADVISOR without a device. He drives. He sleeps [...] outlined inthis evaluation. JONO FERNANDEZ, PT Pager: [phone] Physical Therapy Inpatient Rehabilitation Department Time IN / OUT: 1760-1873 Total Time: 33 (eval) minutes * Alejandra Baumann APRN - 06/15/2024 11:39 AM EST Follow Up Diabetes Consult Patient Interview Blood glucose values and insulin use reviewed. Pt remains on an insulin drip today following [id number] MARIALUISA clipping. George continues to complain of [...] MARIALUISA clipping. PMH of chronic HFrEF s/p LOGISTICAL ENGINEER/ICD, IDDM2, HTN, HLD, remote melanoma, active smoker. [...] – [place] Endocrinology Diabetes Management Pager [phone] Weekends please page [phone] 50 minutes were spent over the course [...] elevation myocardial infarction) Cardiac resynchronization therapy defibrillator (LOGISTICAL ENGINEER-D) - Medtronic Amplia Cardiomyopathy, ischemic Acute on chronic heart failure with reduced ejection fraction (HFrEF, <= 40%) Coronary artery disease involving [place] coronary artery of [place] heart without angina pectoris Type 2 diabetes [...] with h/o DM, CAD with prior PCI, LOGISTICAL ENGINEER-D who presented with crushing chest pain, found [...] MARIALUISA clipping. PMH of chronic HFrEF s/p LOGISTICAL ENGINEER/ICD, IDDM2, HTN, HLD, remote melanoma, active smoker. [...] sternotomy dressing CDI, saphenectomy dressing CDi Tubes/Lines/Drains: Rudyard, RIJ, A-line, Mediastinal marcos and bilateral pleural [...] 0600 and on the weekends please page [phone]. * Yoli Donaldson, [facility] - 06/15/2024 5:35 AM EST AMV [...] with h/o DM, CAD with prior PCI, LOGISTICAL ENGINEER-D who presented with crushing chest pain, found [...] with h/o DM, CAD with prior PCI, LOGISTICAL ENGINEER-D who presented with crushing chest pain, found [...] 0600 and on the weekends please page [phone]. * Chloé Cortez - 06/14/2024 9:36 AM [...] unless consulted in the interim. Chloé Cortez Chief Creative Officer * Jim Benites MD - 06/13/2024 1:15 [...] - Mildly dilated left ventricle size with nmwfsrcs-zy-wbhdufnu decreased LV systolic function. LV ejection fraction [...] elevation myocardial infarction) Cardiac resynchronization therapy defibrillator (LOGISTICAL ENGINEER-D) - Medtronic Amplia Cardiomyopathy, ischemic Acute on chronic heart failure with reduced ejection fraction (HFrEF, <= 40%) Coronary artery disease involving [place] coronary artery of [place] heart without angina pectoris Type 2 diabetes [...] PCP: Mauro Berumen MD PCP phone number: [phone] Date of Admission: 06/02/2024 ( Hospital Day 10 days ) Attending:Ethel Carrillo MD ID: 69 y.o. male with a h/o DM type 2, HTN, HLD, current smoker (2-3 cigarettes/day), HFrEF with anICD for low EF (~30%), and CAD with prior [place] x3 with JENNA placed in [place], Melanoma, PAD, presented to [facility] with 1 hour of retrosternal CP (05/13) while watching TV, found to have STEMI. Active Problems: Active Hospital Problems Diagnosis STEMI (ST elevation myocardial infarction) Cardiac resynchronization therapy defibrillator (LOGISTICAL ENGINEER-D) - Medtronic Amplia Cardiomyopathy, ischemic Acute on chronic heart failure with reduced ejection fraction (HFrEF, <= 40%) Coronary artery disease involving [place] coronary artery of [place] heart without angina pectoris Type 2 diabetes [...] in the last 7068 hours. Invalid input(s): [id number] Recent Labs 06/12/24 0425 06/11/24 2356 06/11/24 2025 06/11/24 1624 06/11/24 1108 06/11/24 0748 06/11/24 0357 06/11/24 0050 06/10/24 1922 06/10/24 1735 06/10/24 1125 06/10/24 0746 POCGLU 132 135 210* 81 233* 184 132 144 236* 123 216* 206* Heme No results for input(s): LDH, HAPTOGLOBIN, URICACID in the last 168 hours. ABG (Arterial Blood Gas) No results found for: PHART, PO2ART, XKW3EHX, EPM2ZYW Microbiology: Microbiology Results (Last 30 days) No results found for the last 720 hours. Imaging: Results for orders placed or performed during the hospital encounter of 06/02/24 XR Chest One View (Exam End: 06/03/2024 2:41 AM) Result Value WORKSTATION ID [id number] Impression No radiographically evident acute cardiopulmonary process. Thank you for letting us participate in the care of this patient. If you are a health care provider and have any questions regarding this report, please contact the number below. For patients who have questions please contact the health senior care assistant that requested your imaging first. Electronically signed by: Corazon Mauro MD, [facility] ([phone]), at 06/03/2024 3:06 AM MRI Cardiac Morphology Function wwo Contrast (Exam End: 06/07/2024 1:10 PM) Result Value WORKSTATION ID [id number] Impression - Findings consistent with an ischemic [...] - Mildly dilated left ventricle size with yicvhgkx-dw-wtxuvijv decreased LV systolic function. LV ejection fraction [...] who have questions please contact the health senior care assistant that requested your imaging first. Electronically signed by: Kriss Alonzo MD, [facility] ([phone]), at 06/07/2024 2:[address] Chest wo Contrast (Generic) (Exam End: 06/03/2024 4:33 PM) Result Value WORKSTATION ID [id number] Impression Cardiomegaly. Biventricular ICD leads in place. Thank you for letting us participate in the care of this patient. If you are a health care provider and have any questions regarding this report, please contact the number below. For patients who have questions please contact the health senior care assistant that requested your imaging first. Electronically signed by: Stuart Aponte MD, [facility] ([phone]), at 06/03/2024 4:47 PM XR Chest PA & Lateral (Generic) (Exam End: 06/07/2024 7:03 AM) Result Value WORKSTATION ID [id number] Impression Biventricular ICD leads intact and in [...] who have questions please contact the health senior care assistant that requested your imaging first. Electronically signed by: Stuart Aponte MD, [facility] ([phone]), at 06/07/2024 10:45 AM TTE: Limited echo performed by fellow special education tutor to assess LV function. Left ventricle is [...] stable, asymptomatic. Plan to go to [employer] for balloon pump tomorrow, then willgo to [...] CODE Dain Colón MD Cardiology, M1-S2, Pager #[phone] 06/12/24 Associated attestation - Ethel Carrillo MD [...] of two midnights or is on the [facility] inpatient only procedure list (status C) due to: acute myocardial infarction requiring titration of IV medication and fluid monitoring and decompensated congestive heart failure requiring IV medication and fluid monitoring Ethel Carrillo MD Cardiovascular Medicine Personal Pager [phone] 06/12/2024 9:12 PM * Alejandra Baumann, RECORD CHANGER TESTER - 06/11/2024 4:21 PM EST Images [...] too aggressive, suggest ICR 1:6 (rule of [id number]/81 = 6.25). George is up and walking [...] – [place] Endocrinology Diabetes Management Pager [phone] Weekends please page [phone] 35 minutes were spent over the course [...] PCP: Mauro Berumen MD PCP phone number: [phone] Date of Admission: 06/02/2024 ( Hospital Day 9 days ) Attending:Melida Valdes MD ID: 69 y.o. male with a h/o DM type 2, HTN, HLD, current smoker (2-3 cigarettes/day), HFrEF with anICD for low EF (~30%), and CAD with prior [place] x3 with JENNA placed in [place], Melanoma, PAD, presented to [facility] with 1 hour of retrosternal CP (05/13) while watching TV, found to have STEMI. Active Problems: Active Hospital Problems Diagnosis STEMI (ST elevation myocardial infarction) Cardiac resynchronization therapy defibrillator (LOGISTICAL ENGINEER-D) - Medtronic Amplia Cardiomyopathy, ischemic Acute on chronic heart failure with reduced ejection fraction (HFrEF, <= 40%) Coronary artery disease involving [place] coronary artery of [place] heart without angina pectoris Type 2 diabetes [...] in the last 7068 hours. Invalid input(s): [id number] Recent Labs 06/11/24 0357 06/11/24 0050 06/10/24 1922 06/10/24 1735 06/10/24 1125 06/10/24 0746 06/10/24 0423 06/10/24 0005 06/09/24 2036 06/09/24 1727 06/09/24 1152 06/09/24 0810 POCGLU 132 144 236* 123 216* 206* 154 125 197 174 211* 209* Heme No results for input(s): LDH, HAPTOGLOBIN, URICACID in the last 168 hours. ABG (Arterial Blood Gas) No results found for: PHART, PO2ART, QAU6VGF, LOA0TFH Microbiology: Microbiology Results (Last 30 days) No results found for the last 720 hours. Imaging: Results for orders placed or performed during the hospital encounter of 06/02/24 XR Chest One View (Exam End: 06/03/2024 2:41 AM) Result Value WORKSTATION ID [id number] Impression No radiographically evident acute cardiopulmonary process. Thank you for letting us participate in the care of this patient. If you are a health care provider and have any questions regarding this report, please contact the number below. For patients who have questions please contact the health senior care assistant that requested your imaging first. Electronically signed by: Corazon Mauro MD, [facility] ([phone]), at 06/03/2024 3:06 AM MRI Cardiac Morphology Function wwo Contrast (Exam End: 06/07/2024 1:10 PM) Result Value WORKSTATION ID [id number] Impression - Findings consistent with an ischemic [...] - Mildly dilated left ventricle size with fylrrqzc-vz-nazdghjb decreased LV systolic function. LV ejection fraction [...] who have questions please contact the health senior care assistant that requested your imaging first. Electronically signed by: Kriss Alonzo MD, [facility] ([phone]), at 06/07/2024 2:[address] Chest wo Contrast (Generic) (Exam End: 06/03/2024 4:33 PM) Result Value WORKSTATION ID [id number] Impression Cardiomegaly. Biventricular ICD leads in place. Thank you for letting us participate in the care of this patient. If you are a health care provider and have any questions regarding this report, please contact the number below. For patients who have questions please contact the health senior care assistant that requested your imaging first. Electronically signed by: Stuart Aponte MD, [facility] ([phone]), at 06/03/2024 4:47 PM XR Chest PA & Lateral (Generic) (Exam End: 06/07/2024 7:03 AM) Result Value WORKSTATION ID [id number] Impression Biventricular ICD leads intact and in [...] who have questions please contact the health senior care assistant that requested your imaging first. Electronically signed by: Stuart Aponte MD, [facility] ([phone]), at 06/07/2024 10:45 AM TTE: Limited echo performed by fellow special education tutor to assess LV function. Left ventricle is [...] on placing this weekend and transfer to [facility], likely Friday. #ASCVD / STEMI: -Holding Plavix; [...] CODE Dain Colón MD Cardiology, M1-S2, Pager #[phone] 06/11/24 Associated attestation - Ethel Carrillo MD [...] of two midnights or is on the [facility] inpatient only procedure list (status C) due to: acute myocardial infarction requiring titration of IV medication and fluid monitoring and decompensated congestive heart failure requiring IV medication and fluid monitoring Ethel Carrillo MD Cardiovascular Medicine Personal Pager [phone] 06/11/2024 9:35 PM * Hilary Belle 06/10/2024 12:39 PM EST Nutrition Services Note George Mehta is a 69 y.o. male Reason for intervention: hospital day 9 Nutrition Plan: Continue diet order: 60/60/75 CHO Level 2 Encourage good PO Lasix and Insulin noted Monitor weight Patient scheduled for a hospital day 9 nutrition evaluation. Steward/[employer]ess [employer] attempted to meet with pt at bedside [...] unless consulted in the interim. Hilary Belle Clergy Member * Mariia Montero RN - 06/10/2024 12:23 PM EST I have met with the patient to: discuss discharge planning needs. provide the [facility] [place], Office of Care Management letter from the [employer] pertaining to rehab referrals. provide a letter describing our affiliations within the [facility] and educate about their right to choose where referrals are sent. provide a list of Home Health Agencies / Durable Medical Equipment vendors which serve their preferred geographic area. provided patient with [facility] Star Quality Rating handout. They have requested referrals to: [facility]. [address] [place] [id number] RN / PT Anticipated d/c date: 06/20/24 Note routed to a Voice Data Communications Engineer who will communicate referrals to facilities and provide any required information. * Dain Colón MD - 06/10/2024 7:17 AM EST Images from the original note were not included. . Cardiology Progress Note Patient info: Name: George Mehta : 1955 PCP: Mauro Berumen MD PCP phone number: [phone] Date of Admission: 06/02/2024 ( Hospital Day 8 days ) Attending:Melida Valdes MD ID: 69 y.o. male with a h/o DM type 2, HTN, HLD, current smoker (2-3 cigarettes/day), HFrEF with anICD for low EF (~30%), and CAD with prior [place] x3 with JENNA placed in [place], Melanoma, PAD, presented to [facility] with 1 hour of retrosternal CP (05/13) while watching TV, found to have STEMI. Active Problems: Active Hospital Problems Diagnosis STEMI (ST elevation myocardial infarction) Cardiac resynchronization therapy defibrillator (LOGISTICAL ENGINEER-D) - Medtronic Amplia Cardiomyopathy, ischemic Acute on chronic heart failure with reduced ejection fraction (HFrEF, <= 40%) Coronary artery disease involving [place] coronary artery of [place] heart without angina pectoris Type 2 diabetes [...] in the last 7068 hours. Invalid input(s): [id number] Recent Labs 06/10/24 0423 06/10/24 0005 06/09/24 2036 06/09/24 1727 06/09/24 1152 06/09/24 0810 06/09/24 0440 06/09/24 0034 06/08/24 2027 06/08/24 1616 06/08/24 1235 06/08/24 0810 POCGLU 154 125 197 174 211* 209* 131 186 176 159 226* 190 Heme No results for input(s): LDH, HAPTOGLOBIN, URICACID in the last 168 hours. ABG (Arterial Blood Gas) No results found for: PHART, PO2ART, JKA0IIW, VZM5AVW Microbiology: Microbiology Results (Last 30 days) No results found for the last 720 hours. Imaging: Results for orders placed or performed during the hospital encounter of 06/02/24 XR Chest One View (Exam End: 06/03/2024 2:41 AM) Result Value WORKSTATION ID [id number] Impression No radiographically evident acute cardiopulmonary process. Thank you for letting us participate in the care of this patient. If you are a health care provider and have any questions regarding this report, please contact the number below. For patients who have questions please contact the health senior care assistant that requested your imaging first. Electronically signed by: Corazon Mauro MD, [facility] ([phone]), at 06/03/2024 3:06 AM MRI Cardiac Morphology Function wwo Contrast (Exam End: 06/07/2024 1:10 PM) Result Value WORKSTATION ID [id number] Impression - Findings consistent with an ischemic [...] - Mildly dilated left ventricle size with mutdnrsu-sa-dbqqktbj decreased LV systolic function. LV ejection fraction [...] who have questions please contact the health senior care assistant that requested your imaging first. Electronically signed by: Kriss Alonzo MD, [facility] ([phone]), at 06/07/2024 2:[address] Chest wo Contrast (Generic) (Exam End: 06/03/2024 4:33 PM) Result Value WORKSTATION ID [id number] Impression Cardiomegaly. Biventricular ICD leads in place. Thank you for letting us participate in the care of this patient. If you are a health care provider and have any questions regarding this report, please contact the number below. For patients who have questions please contact the health senior care assistant that requested your imaging first. Electronically signed by: Stuart Aponte MD, [facility] ([phone]), at 06/03/2024 4:47 PM XR Chest PA & Lateral (Generic) (Exam End: 06/07/2024 7:03 AM) Result Value WORKSTATION ID [id number] Impression Biventricular ICD leads intact and in stable position I have personally reviewed the image(s) and the resident's interpretation and agree with the findings, Stuart pAonte MD at 06/07/2024 10:45 AM Thank you for letting us participate in the care of this patient. If you are a health care provider and have any questions regarding this report, please contact the number below. For patients who have questions please contact the health senior care assistant that requested your imaging first. Electronically signed by: Stuart Aponte MD, [facility] ([phone]), at 06/07/2024 10:45 AM TTE: Limited echo performed by fellow special education tutor to assess LV function. Left ventricle is [...] CODE Dain Colón MD Cardiology, M1-S2, Pager #[phone] 06/10/24 Associated attestation - Melida Valdes MD [...] a lytic and brought directly to the Program Manager Rn. Cardiac catheterization demonstrated multivessel disease with severe [...] who is agreeable Melida Valdes MD Staff Cooler Operator * Cherelle Fregoso, JOSÉ ANTONIO - [...] Name: George Mehta : 1955 PCP: Mauro eBrumen MD PCP phone number: [phone] Date of Admission: 06/02/2024 ( Hospital Day 7 days ) Attending:Melida Valdes MD ID: 69 y.o. male with a h/o DM type 2, HTN, HLD, current smoker (2-3 cigarettes/day), HFrEF with anICD for low EF (~30%), and CAD with prior [place] x3 with JENNA placed in [place], Melanoma, PAD, presented to [facility] with 1 hour of retrosternal CP (05/13) while watching TV, found to have STEMI. Active Problems: Active Hospital Problems Diagnosis STEMI (ST elevation myocardial infarction) Acute on chronic heart failure with reduced ejection fraction (HFrEF, <= 40%) Coronary artery disease involving [place] coronary artery of [place] heart without angina pectoris Type 2 diabetes [...] in the last 7068 hours. Invalid input(s): [id number] Recent Labs 06/09/24 0440 06/09/24 0034 06/08/24202606/08/24 1616 06/08/24 1235 06/08/24 0810 06/08/24 0409 06/07/24 2357 06/07/24 2005 06/07/24 1631 06/07/24 1105 06/07/24 1103 POCGLU 131 186 176 159 226* 190 151 188 118 174 221* 250* Heme No results for input(s): LDH, HAPTOGLOBIN, URICACID in the last 168 hours. ABG (Arterial Blood Gas) No results found for: PHART, PO2ART, AOZ6NRK, IMU2OFD Microbiology: Microbiology Results (Last 30 days) No results found for the last 720 hours. Imaging: Results for orders placed or performed during the hospital encounter of 06/02/24 XR Chest One View (Exam End: 06/03/2024 2:41 AM) Result Value WORKSTATION ID [id number] Impression No radiographically evident acute cardiopulmonary process. Thank you for letting us participate in the care of this patient. If you are a health care provider and have any questions regarding this report, please contact the number below. For patients who have questions please contact the health senior care assistant that requested your imaging first. Electronically signed by: Corazon Mauro MD, [facility] ([phone]), at 06/03/2024 3:06 AM MRI Cardiac Morphology Function wwo Contrast (Exam End: 06/07/2024 1:10 PM) Result Value WORKSTATION ID [id number] Impression - Findings consistent with an ischemic [...] - Mildly dilated left ventricle size with dxtngjyf-df-brfuxsjv decreased LV systolic function. LV ejection fraction [...] who have questions please contact the health senior care assistant that requested your imaging first. Electronically signed by: Kriss Alonzo MD, [facility] ([phone]), at 06/07/2024 2:[address] Chest wo Contrast (Generic) (Exam End: 06/03/2024 4:33 PM) Result Value WORKSTATION ID [id number] Impression Cardiomegaly. Biventricular ICD leads in place. Thank you for letting us participate in the care of this patient. If you are a health care provider and have any questions regarding this report, please contact the number below. For patients who have questions please contact the health senior care assistant that requested your imaging first. Electronically signed by: Stuart Aponte MD, [facility] ([phone]), at 06/03/2024 4:47 PM XR Chest PA & Lateral (Generic) (Exam End: 06/07/2024 7:03 AM) Result Value WORKSTATION ID [id number] Impression Biventricular ICD leads intact and in [...] who have questions please contact the health senior care assistant that requested your imaging first. Electronically signed by: Stuart Aponte MD, [facility] ([phone]), at 06/07/2024 10:45 AM TTE: Limited echo performed by fellow special education tutor to assess LV function. Left ventricle is [...] Infusions: heparin (porcine) infusion 1,400 Units/hr (06/08/24 0778) PRN Meds:.glucose 40% oral geL OR dextrose [...] CODE Dain Colón MD Cardiology, M1-S2, Pager #[phone] 06/09/24 Associated attestation - Melida Valdes MD [...] a lytic and brought directly to the Program Manager Rn. Cardiac catheterization demonstrated multivessel disease with severe [...] insertion low EF. Melida Valdes MD Staff Cooler Operator * Alejandra Baumann, RECORD CHANGER TESTER - 06/08/2024 4:10 PM EST Images from [...] – [place] Endocrinology Diabetes Management Pager [phone] Weekends please page [phone] 35 minutes were spent over the course [...] PCP: Mauro Berumen MD PCP phone number: [phone] Date of Admission: 06/02/2024 ( Hospital Day 6 days ) Attending:Melida Valdes MD ID: 69 y.o. male with a h/o DM type 2, HTN, HLD, current smoker (2-3 cigarettes/day), HFrEF with anICD for low EF (~30%), and CAD with prior [place] x3 with JENNA placed in [place], Melanoma, PAD, presented to [facility] with 1 hour of retrosternal CP (05/13) while watching TV, found to have STEMI. Active Problems: Active Hospital Problems Diagnosis STEMI (ST elevation myocardial infarction) Acute on chronic heart failure with reduced ejection fraction (HFrEF, <= 40%) Coronary artery disease involving [place] coronary artery of [place] heart without angina pectoris Type 2 diabetes [...] in the last 7068 hours. Invalid input(s): [id number] Recent Labs 06/08/24 0409 06/07/24 2357 06/07/24 2005 06/07/24 1631 06/07/24 1105 06/07/24 1103 06/07/24 0745 06/07/24 0425 06/07/24 0008 06/06/24 2018 06/06/24 1539 06/06/24 1339 POCGLU 151 188 118 174 221* 250* 175 127 182 143 147 317* Heme No results for input(s): LDH, HAPTOGLOBIN, URICACID in the last 168 hours. ABG (Arterial Blood Gas) No results found for: PHART, PO2ART, DCT3TKP, LDC3FST Microbiology: Microbiology Results (Last 30 days) No results found for the last 720 hours. Imaging: Results for orders placed or performed during the hospital encounter of 06/02/24 XR Chest One View (Exam End: 06/03/2024 2:41 AM) Result Value WORKSTATION ID [id number] Impression No radiographically evident acute cardiopulmonary process. Thank you for letting us participate in the care of this patient. If you are a health care provider and have any questions regarding this report, please contact the number below. For patients who have questions please contact the health senior care assistant that requested your imaging first. Electronically signed by: Corazon Mauro MD, [facility] ([phone]), at 06/03/2024 3:06 AM MRI Cardiac Morphology Function wwo Contrast (Exam End: 06/07/2024 1:10 PM) Result Value WORKSTATION ID [id number] Impression - Findings consistent with an ischemic [...] - Mildly dilated left ventricle size with zxehigcx-ik-uthowgwv decreased LV systolic function. LV ejection fraction [...] who have questions please contact the health senior care assistant that requested your imaging first. Electronically signed by: Kriss Alonzo MD, [facility] ([phone]), at 06/07/2024 2:[address] Chest wo Contrast (Generic) (Exam End: 06/03/2024 4:33 PM) Result Value WORKSTATION ID [id number] Impression Cardiomegaly. Biventricular ICD leads in place. Thank you for letting us participate in the care of this patient. If you are a health care provider and have any questions regarding this report, please contact the number below. For patients who have questions please contact the health senior care assistant that requested your imaging first. Electronically signed by: Stuart Aponte MD, [facility] ([phone]), at 06/03/2024 4:47 PM XR Chest PA & Lateral (Generic) (Exam End: 06/07/2024 7:03 AM) Result Value WORKSTATION ID [id number] Impression Biventricular ICD leads intact and in [...] who have questions please contact the health senior care assistant that requested your imaging first. Electronically signed by: Stuart Aponte MD, [facility] ([phone]), at 06/07/2024 10:45 AM TTE: Limited echo performed by fellow special education tutor to assess LV function. Left ventricle is [...] CODE Dain Colón MD Cardiology, M1-S2, Pager #[phone] 06/08/24 Associated attestation - Melida Valdes MD [...] a lytic and brought directly to the Program Manager Rn. Cardiac catheterization demonstrated multivessel disease with severe [...] Otherwise clinically stable Melida Valdes MD Staff Cooler Operator * Ross Manuel PA - 06/07/2024 12:00 PM EST Cardiac Electrophysiology CIED Interrogation/Programming Note Asked by MRI staff to evaluate and program Medtronic LOGISTICAL ENGINEER-D to allow for MR imaging. Patient Active Problem List Diagnosis ','STEMI (ST elevation myocardial infarction) Acute on chronic heart failure with reduced ejection fraction (HFrEF, <= 40%) Coronary artery disease involving [place] coronary artery of [place] heart without angina pectoris Type 2 diabetes mellitus Device Data: Medtronic Amplia MRI Quad LOGISTICAL ENGINEER-D INGS2XG # 06/16/2019 RA Medtronic 4076 CapSureFix Novus [id number] 06/16/2019 RV Medtronic [id number] [id number] 06/16/2019 LV Medtronic 4298 Attain Performa MRI [id number] 06/16/2019 DDD @ 50/130/130 Adaptive Bi-V and LV VF >188bpm ATP, 35j x6 FVT >188-222bpm burst 2, 35jx5 VT Battery longevity: 2.5yrs; charge time 4s P wave: 2.3mV R wave: >20.0mV Atrial impedance: 458 ohms RV impedance: 646 ohms LV impedance: 722 ohms Atrial threshold: 0.5V @ 0.4ms RV threshold: LV threshold: 1.75V @ 0.4ms AP 0.2% VERTICAL BORER 97.7% AT/AF 0% Impression and Plan: 1. Interrogated device to determine suitability for MRI 2. Programmed to MRI safe mode - VOO @ 70 3. Scan performed 4. Programming restored to baseline settings 5. Reinterrogated to verify appropriate function and settings 6. Device follow up as previously scheduled Provider: HENOK Meyer EP Consult attending physician: Libby Barton MD EP Consult positional pager #[phone](EPMD) EP Device interrogation positional pager # [phone] * Dain Colón MD - 06/07/2024 7:09 AM EST Images from the original note were not included. . Cardiology Progress Note Patient info: Name: George Mehta : 1955 PCP: Mauro Berumen MD PCP phone number: [phone] Date of Admission: 06/02/2024 ( Hospital Day 5 days ) Attending:Melida Valdes MD ID: 69 y.o. male with a h/o DM type 2, HTN, HLD, current smoker (2-3 cigarettes/day), HFrEF with anICD for low EF (~30%), and CAD with prior [place] x3 with JENNA placed in [place], Melanoma, PAD, presented to [facility] with 1 hour of retrosternal CP (05/13) while watching TV, found to have STEMI. Active Problems: Active Hospital Problems Diagnosis STEMI (ST elevation myocardial infarction) Acute on chronic heart failure with reduced ejection fraction (HFrEF, <= 40%) Coronary artery disease involving [place] coronary artery of [place] heart without angina pectoris Type 2 diabetes [...] in the last 7068 hours. Invalid input(s): [id number] Recent Labs 06/07/24 0425 06/07/24 0008 06/06/24 2018 06/06/24 1539 06/06/24 1339 06/06/24 1134 06/06/24 0757 06/06/24 0653 06/05/24 2231 06/05/24 1622 06/05/24 1134 06/05/24 0727 POCGLU 127 182 143 147 317* 264* 195 187 238* 205* 211* 166 Heme No results for input(s): LDH, HAPTOGLOBIN, URICACID in the last 168 hours. ABG (Arterial Blood Gas) No results found for: PHART, PO2ART, HXH5CDZ, GVO5NHW Microbiology: Microbiology Results (Last 30 days) No results found for the last 720 hours. Imaging: Results for orders placed or performed during the hospital encounter of 06/02/24 XR Chest One View (Exam End: 06/03/2024 2:41 AM) Result Value WORKSTATION ID [id number] Impression No radiographically evident acute cardiopulmonary process. Thank you for letting us participate in the care of this patient. If you are a health care provider and have any questions regarding this report, please contact the number below. For patients who have questions please contact the health senior care assistant that requested your imaging first. Chest wo Contrast (Generic) (Exam End: 06/03/2024 4:33 PM) Result Value WORKSTATION ID [id number] Impression Cardiomegaly. Biventricular ICD leads in place. Thank you for letting us participate in the care of this patient. If you are a health care provider and have any questions regarding this report, please contact the number below. For patients who have questions please contact the health senior care assistant that requested your imaging first. Electronically signed by: Stuart Aponte MD, [facility] ([phone]), at 06/03/2024 4:47 PM TTE: Limited echo performed by fellow special education tutor to assess LV function. Left ventricle is [...] Dain Colón MD (PGY-1) Cardiology, M1-S2, Pager #[phone] 06/07/24 Associated attestation - Melida Valdes MD [...] a lytic and brought directly to the Program Manager Rn. Cardiac catheterization demonstrated multivessel disease with severe [...] for further guidance. Melida Valdes MD Staff Cooler Operator * Dain Colón MD - 06/06/2024 7:17 AM EST Images from the original note were not included. . Cardiology Progress Note Patient info: Name: George Mehta : 1955 PCP: Mauro Berumen MD PCP phone number: [phone] Date of Admission: 06/02/2024 ( Hospital Day 4 days ) Attending:Melida Valdes MD ID: 69 y.o. male with a h/o DM type 2, HTN, HLD, current smoker (2-3 cigarettes/day), HFrEF with anICD for low EF (~30%), and CAD with prior [place] x3 with JENNA placed in [place], Melanoma, PAD, presented to [facility] with 1 hour of retrosternal CP (05/13) while watching TV, found to have STEMI. Active Problems: Active Hospital Problems Diagnosis STEMI (ST elevation myocardial infarction) Acute on chronic heart failure with reduced ejection fraction (HFrEF, <= 40%) Coronary artery disease involving [place] coronary artery of [place] heart without angina pectoris Type 2 diabetes [...] in the last 7068 hours. Invalid input(s): [id number] Recent Labs 06/06/24 0653 06/05/24 2231 06/05/24 1622 06/05/24 1134 06/05/24 0727 06/04/24 1943 06/04/24 1526 06/04/24 1109 06/04/24 0711 06/03/24 2005 06/03/24 1748 06/03/24 1114 POCGLU 187 238* 205* 211* 166 175 154 188 182 136 191 166 Heme No results for input(s): LDH, HAPTOGLOBIN, URICACID in the last 168 hours. ABG (Arterial Blood Gas) No results found for: PHART, PO2ART, JYP4VVW, EKS0WAF Microbiology: Microbiology Results (Last 30 days) No results found for the last 720 hours. Imaging: Results for orders placed or performed during the hospital encounter of 06/02/24 XR Chest One View (Exam End: 06/03/2024 2:41 AM) Result Value WORKSTATION ID [id number] Impression No radiographically evident acute cardiopulmonary process. Thank you for letting us participate in the care of this patient. If you are a health care provider and have any questions regarding this report, please contact the number below. For patients who have questions please contact the health senior care assistant that requested your imaging first. Electronically signed by: Corazon Mauro MD, [facility] ([phone]), at 06/03/2024 3:[address] Chest wo Contrast (Generic) (Exam End: 06/03/2024 4:33 PM) Result Value WORKSTATION ID [id number] Impression Cardiomegaly. Biventricular ICD leads in place. Thank you for letting us participate in the care of this patient. If you are a health care provider and have any questions regarding this report, please contact the number below. For patients who have questions please contact the health senior care assistant that requested your imaging first. : Limited echo performed by fellow special education tutor to assess LV function. Left ventricle is [...] Dain Colón MD (PGY-1) Cardiology, M1-S2, Pager #[phone] 06/06/24 Associated attestation - Melida Valdes MD [...] a lytic and brought directly to the Program Manager Rn. Cardiac catheterization demonstrated multivessel disease with severe [...] management. Help appreciated Melida Valdes MD Staff Cooler Operator * Frederick Dunn MD - 06/05/2024 8:13 AM EDT Images from the original note were not included. . Cardiology Progress Note Patient info: Name: George Mehta : 1955 PCP: Mauro Berumen MD PCP phone number: [phone] Date of Admission: 06/02/2024 ( Hospital Day 3 days ) Attending:Melida Valdes MD ID: 69 y.o. male with a h/o DM type 2, HTN, HLD, current smoker (2-3 cigarettes/day), HFrEF with anICD for low EF (~30%), and CAD with prior [place] x3 with JENNA placed in [place], Melanoma, PAD, presented to [facility] with 1 hour of retrosternal CP (05/13) [...] in the last 7068 hours. Invalid input(s): [id number] Recent Labs 06/05/24 1134 06/05/24 0727 06/04/24 1943 06/04/24 1526 06/04/24 1109 06/04/24 0711 06/03/24 2005 06/03/24 1748 06/03/24 1114 06/03/24 0754 06/02/24 2331 POCGLU 211* 166 175 154 188 182 136 191 166 195 156 Heme No results for input(s): LDH, HAPTOGLOBIN, URICACID in the last 168 hours. ABG (Arterial Blood Gas) No results found for: PHART, PO2ART, BXB2JWW, FGC0BVN Microbiology: Microbiology Results (Last 30 days) No results found for the last 720 hours. Imaging: Results for orders placed or performed during the hospital encounter of 06/02/24 XR Chest One View (Exam End: 06/03/2024 2:41 AM) Result Value WORKSTATION ID [id number] Impression No radiographically evident acute cardiopulmonary process. Thank you for letting us participate in the care of this patient. If you are a health care provider and have any questions regarding this report, please contact the number below. For patients who have questions please contact the health senior care assistant that requested your imaging first. Electronically signed by: Corazon Mauro MD, [facility] ([phone]), at 06/03/2024 3:[address] Chest wo Contrast (Generic) (Exam End: 06/03/2024 4:33 PM) Result Value WORKSTATION ID [id number] Impression Cardiomegaly. Biventricular ICD leads in place. Thank you for letting us participate in the care of this patient. If you are a health care provider and have any questions regarding this report, please contact the number below. For patients who have questions please contact the health senior care assistant that requested your imaging first. Electronically signed by: Stuart Aponte MD, [facility] ([phone]), at 06/03/2024 4:47 PM TTE: Limited echo performed by fellow special education tutor to assess LV function. Left ventricle is [...] all the information they need regarding the LOGISTICAL ENGINEER-D.Plan for MRI tomorrow. Starting 40 mg IV [...] a lytic and brought directly to the Program Manager Rn. Cardiac catheterization demonstrated multivessel disease with severe [...] maintenance of 40. Melida Valdes MD Staff Cooler Operator * Migel Javier RN - 06/05/2024 6:21 AM EDT Implanted device record scanned into: Chart Review-->Media-->External Cardiology-->03/25/2024. Medtronic Amplia MRI Quad CRTD [id number] Serial #: [id number] DDD mode A + Bi/V Rates 50-130 Migel Javier RN * Dain Colón MD - 06/04/2024 11:16 AM EDT Implant Records Requested Type: LOGISTICAL ENGINEER-D Office Clerk: [employer] Product: [id number] Amplia MRI MRI compatibility: Compatible for 1.5-3 T Model #: [id number] Placed at: [place], [place] Records requested for MRI: 1. Operative report 2. Implant log I requested that these records be sent to our MRI department, Dain Colón MD 06/04/24 11:58 AM * Dain Colón MD - 06/04/2024 6:57 AM EDT Images from the original note were not included. . Cardiology Progress Note Patient info: Name: George Mehta : 1955 PCP: Mauro Berumen MD PCP phone number: [phone] Date of Admission: 06/02/2024 ( Hospital Day 2 days ) Attending:Delroy Fofana MD ID: 69 y.o. male with a h/o DM type 2, HTN, HLD, current smoker (2-3 cigarettes/day), HFrEF with anICD for low EF (~30%), and CAD with prior [place] x3 with JENNA placed in [place], Melanoma, PAD, presented to [facility] with 1 hour of retrosternal CP (05/13) [...] in the last 7068 hours. Invalid input(s): [id number] Recent Labs 06/03/24 2005 06/03/24 1748 06/03/24 1114 06/03/24 0754 06/02/24 2331 POCGLU 136 191 166 195 156 Heme No results for input(s): LDH, HAPTOGLOBIN, URICACID in the last 168 hours. ABG (Arterial Blood Gas) No results found for: PHART, PO2ART, GAD5LQV, GPJ1LRI Microbiology: Microbiology Results (Last 30 days) No results found for the last 720 hours. Imaging: Results for orders placed or performed during the hospital encounter of 06/02/24 XR Chest One View (Exam End: 06/03/2024 2:41 AM) Result Value WORKSTATION ID [id number] Impression No radiographically evident acute cardiopulmonary process. Thank you for letting us participate in the care of this patient. If you are a health care provider and have any questions regarding this report, please contact the number below. For patients who have questions please contact the health senior care assistant that requested your imaging first. Electronically signed by: Corazon Mauro MD, [facility] ([phone]), at 06/03/2024 3:[address] Chest wo Contrast (Generic) (Exam End: 06/03/2024 4:33 PM) Result Value WORKSTATION ID [id number] Impression Cardiomegaly. Biventricular ICD leads in place. Thank you for letting us participate in the care of this patient. If you are a health care provider and have any questions regarding this report, please contact the number below. For patients who have questions please contact the health senior care assistant that requested your imaging first. Electronically signed by: Stuart Aponte MD, [facility] ([phone]), at 06/03/2024 4:47 PM TTE: Limited echo performed by fellow special education tutor to assess LV function. Left ventricle is [...] 40 mg IV given in the laborer starch factory; assess diuretic response, consider re-dosing -Continue carvedilol; [...] a lytic and brought directly to the Program Manager Rn. Cardiac catheterization demonstrated multivessel disease with severe [...] Friday -Diuresis with Jovanni Valdes MD Staff Cooler Operator * Fatmata Mcallister, PT - 06/03/2024 3:29 [...] vs PCI) Fatmata Mcallister PT, MSPT Pager [phone] Inpatient Physical Therapy * Marlin Gómez MD [...] Marlin Gómez MD Cardiology S2, Pager # [phone] 06/03/2024 * Delroy Fofana MD - 06/03/2024 7:16 AM EDT Images from the original note were not included. . Cardiology Progress Note Patient info: Name: George Mehta : 1955 PCP: Mauro Berumen MD PCP phone number: [phone] Date of Admission: 06/02/2024 ( Hospital Day 1 day ) Attending:Nuha Rojo MD ID: 69 y.o. male with a h/o DM type 2, HTN, HLD, current smoker (2-3 cigarettes/day), HFrEF with anICD for low EF (~30%), and CAD with prior [place] x3 with JENNA placed in [place], Melanoma, PAD, presented to [facility] with 1 hour of retrosternal CP (05/13) [...] in the last 7068 hours. Invalid input(s): [id number] Recent Labs 06/02/24 2331 POCGLU 156 Heme No results for input(s): LDH, HAPTOGLOBIN, URICACID in the last 168 hours. ABG (Arterial Blood Gas) No results found for: PHART, PO2ART, LOG7HTS, KAY0KPX Microbiology: Microbiology Results (Last 30 days) No results found for the last 720 hours. Imaging: Results for orders placed or performed during the hospital encounter of 06/02/24 XR Chest One View (Exam End: 06/03/2024 2:41 AM) Result Value WORKSTATION ID [id number] Impression No radiographically evident acute cardiopulmonary process. Thank you for letting us participate in the care of this patient. If you are a health care provider and have any questions regarding this report, please contact the number below. For patients who have questions please contact the health senior care assistant that requested your imaging first. Electronically signed by: Corazon Mauro MD, [facility] ([phone]), at 06/03/2024 3:06 AM TTE: Limited echo performed by fellow special education tutor to assess LV function. Left ventricle is [...] 40 mg IV given in the laborer starch factory; assess diuretic response, consider re-dosing -Continue carvedilol; [...] @YESSI@ Dain Colón MD (PGY-1) Cardiology M1-S2, #[id number] 06/03/2024, 7:16 AM Cardiology Staff - Progress Note Addendum This patient was seen and examined on morning rounds with the S2 inpatient team. I agree with the findings and plan of care per Dain Colón MD (biomedical engineering supervisor). Please refer to his note above for [...] (TNK) and brought directly to the laborer starch factory. The cath demonstrated 3VD with diffuse disease [...] - 06/13/2024 10:58 AM EST ICU Blue (#[id number]) H&P Patient info: Name: George Mehta : 1955 PCP: Mauro Berumen MD PCP phone number: [phone] Date of Admission: 06/02/2024 ( Hospital Day 11 days ) Attending:Haja Byrnes MD ID: George Mehta is a 69 y.o. male with a h/o DM type 2, HTN, HLD, current smoker (2-3 cigarettes/day), HFrEF with an ICD for low EF (~30%), and CAD with prior [place] x3 with JENNA placed in [place], Melanoma, PAD, presented to [facility] with 1 hour of retrosternal CP (05/13) while watching TV, foundto have STEMI. HPI: Shahnaz Scanlon H&P 06/02 69 y.o. male with a h/o DM type 2, HTN, HLD, current smoker (2-3 cigarettes/day), HFrEF with an ICD for low EF (~30%), and CAD with prior [place] x3 with JENNA placed in [place], Melanoma, PAD, presented to [facility] with 1 hour of retrosternal CP (05/13) while watching TV. CP was non-radiating, not asso ciated with diaphoresis, nausea, or SOB. Denies orthopnea, MARTÍNEZ, palpitations, or LE edema. ECG showed findings consistent with anterior STEMI. He received TNK and was transferred for PCI. Coronary angiography showed a small, non-dominant RCA with mgce-ea-kpzdrdmo disease and a dominant,heavily calcified left system with prior stents in the LAD and OM. The LM bifurcates into the LAD and LCX, both heavily calcified. The proximal LCX has a 75% calcified, aneurysmal lesion, and an 80% calcified lesion distally before a large OM2. OM1 is a PICKLING SOLUTION MAKER with in-stent restenosis, filling retrograde via [...] mg Lasix was administered in the laborer starch factory. Cardiac surgery was consulted and plan for [...] Blood Gas) No results for input(s): PHART, YRT0DWA, PO2ART, PMB9PDE, LACTATEVEN, WIV4BHG, PFRATIOART2 in the last 168 hours. VBG (Venous Blood Gas) Recent Labs 06/10/24 1742 PHVEN 7.34 PO2VEN 24 TDC1WYV 27.4 Mixed Venous Sat No results for input(s): P6LBSH8 in the last 168 hours. Intake/Output Summary [...] in the last 7068 hours. Invalid input(s): EGXPATJCZGU2U Recent Labs 06/13/24 0741 06/13/24 0325 06/12/24 2353 06/12/24 1932 06/12/24 1541 06/12/24 1121 06/12/24 0800 06/12/24 0425 06/11/24 2356 06/11/24 2025 06/11/24 1624 06/11/24 1108 POCGLU 126 99 141 158 113 207* 169 132 135 210* 81 233* Heme No results for input(s): LDH, HAPTOGLOBIN, URICACID in the last 168 hours. ABG (Arterial Blood Gas) No results for input(s): PHART, DRQ9PWX, PO2ART, PYW7NRS, LACTATEVEN, SQK6IYP, PFRATIOART2 in the last 168 hours. VBG (Venous Blood Gas) Recent Labs 06/10/24 1742 PHVEN 7.34 PO2VEN 24 PJV1RZY 27.4 Mixed Venous Sat No results for input(s): F8YGRR3 in the last 168 hours. Microbiology: Microbiology [...] Plan for CABG 06/14. [place] N[place] at [place]. #ASCVD / STEMI: -Holding Plavix; continue ASA [...] is in the chart Rebeca Prado MD Finance Officer PGY6 [phone] * Shahnaz Scanlon MD - [...] in [place], Melanoma, PAD, presented to [facility] with 1 hour of retrosternal CP (10/10) while watching TV. CP was non-radiating, not assoc iated with diaphoresis, nausea, or SOB. Denies orthopnea, MARTÍNEZ, palpitations, or LE edema. ECG showed findings consistent with anterior STEMI. He received TNK and was transferred for PCI. Coronary angiography showed a small, non-dominant RCA with mkex-me-cjtydrro disease and a dominant,heavily calcified left system with prior stents in the LAD and OM. The LM bifurcates into the LAD and LCX, both heavily calcified. The proximal LCX has a 75% calcified, aneurysmal lesion, and an 80% calcified lesion distally before a large OM2. OM1 is a PICKLING SOLUTION MAKER with in-stent restenosis, filling retrograde via [...] mg Lasix was administered in the laborer starch factory. Past Medical History: As per HPI Significant [...] Mood normal. Behavior: Behavior normal. Diagnostics: [facility] 06/02/2024 Coronary angiography revealed small non [...] 40 mg IV given in the laborer starch factory; assess diuretic response. -Continue carvedilol; hold Entresto [...] & Follow-up Care: Contact information for follow-up [facility] [address] [facility] [address] Cardiac Rehab, [address] [address] JAMIE GRAMAJO confirmed with [facility] that they [...] MEDICARE Payor: AAR MANAGED MEDICARE / Plan: [facility] MANAGED MEDICARE COMPLETE / Product Type: [...] outpatient Phase 2 Cardiac Rehabilitation at [facility]. The patient agrees to a referral to [...] Group Needs: Homecare agency Agency Choices: [facility] Home Health Services: Medication checks, Registered Nurse, Physical Therapy Agency Referrals: pending clinical course and PT/OT recs [facility] [address] [place] [id number] PHONE: [phone] FAX: [phone] Transportation: family or friend will provide Barriers [...] home/apartment/condo. Accessibility Concerns: 1st floor apt. No NADRE. No concerns.. Current Functional Ability: completely dependent (intubated and sedated s/p CABG) DME used at home: none, other (see comments) (Pt states he has grab bars and a shower chair in the bathroom) DME Needed at Discharge: TBD; pending clinical course and PT/OT recs Patient is insured through: Primary Insurance: AARP MANAGED MEDICARE Payor: AARP MANAGED MEDICARE / Plan: AARP [facility] MANAGED MEDICARE COMPLETE / Product Type: *No Product type* / Secondary Insurance: N/A Plan for discharge is: Home w/ Services Outpatient Agency/Support Group Needs: Homecare agency Agency Choices: [facility]: Medication checks, Registered Nurse, Physical Therapy Agency Referrals: pending clinical course and PT/OT recs [facility] [address] [place] [address] PHONE: [phone] FAX: [phone] Transportation: family or friend will provide Barriers [...] Operative Note Patient Name: George Mehta : [id number] MR#: [id number] Case Date: 06/14/2024 Surgeon: Surgeons and Role: * Bobby Loja MD - Primary * Rashi Bass PA - Physician Copy Manager Preoperative diagnosis: CAD, MARIALUISA flickering mass on [...] [place] SURGICAL PATHOLOGY Bobby Loja MD 06/14/2024 0995 3 : Tissue Heart, Atrial Appendage, Left [...] and tomorrow. Report called to [facility] - all belongings with patient. PLAN MOVING FORWARD: microbiological laboratory technician and transfer to [facility]. INDIVIDUALIZED FALL PREVENTION [...] MEDICARE Payor: AAR MANAGED MEDICARE / Plan: [facility] MANAGED MEDICARE COMPLETE / Product Type: *No Product type* / Secondary Insurance: N/A Plan for discharge is: Home w/ Services Outpatient Agency/Support Group Needs: Homecare agency, Agency Choices: [facility] Home Health Services: Medication checks, Registered Nurse, Physical Therapy Agency Referrals: [facility] [place] [phone] RN / PT Routed 06/10 Transportation: family [...] with home health services when medically ready. mechanical shovel operator/Angular Js Developer will continue to follow patient???s progress and remain available if situation changes for coordination of care, psychosocial support and/or discharge planning. Anticipated Date of Discharge: 06/18/2024 Mariia Montero RN CM Extension [phone] * Plan of Care - Migel Javier [...] No Patient is insured through: Primary Insurance: [employer] MANAGED MEDICARE Payor: AARP MANAGED MEDICARE / Plan: [employer] MANAGED MEDICARE COMPLETE / Product Type: *No [...] consult for high risk PCI vs CABG mechanical shovel operator/Angular Js Developer will continue to follow patient???s progress and remain available if situation changes for coordination of care, psychosocial support and/or discharge planning. Anticipated Date of Discharge: 06/11/2024 Mariia Montero RN Extension [phone] * Plan of Care - Becca Hope [...] Appropriate) * Consult Note - Alejandra Baumann, RECORD CHANGER TESTER - 06/06/2024 12:24 PM EST Diabetes Management [...] CABG and to provide a review of termination clerk diabetes care. Diabetes History: George Mehta has [...] Breakfast- varies - eggs with khoury or maori muffin Lunch- turkey sandwich Supper- meat and [...] Infusions: heparin (porcine) infusion 1,400 Units/hr (06/06/24 0447) PRN: insulin lispro, potassium chloride ER OR [...] Baumann APRN Endocrinology Diabetes Management Service Pager: [phone] Weekends please page [phone] 80 minute visit was spent in counseling [...] melanoma, and smoker who presented to [facility] last night via EMS after developing acute, severe chest pain while watching TV. Patient was ruled in for STEMI, given TNK, ASA, plavix, heparin gtt, and sent to [facility] for coronary angiography. LHC demonstrated severely calcified left coronary system with notable LCx 75/80% lesions and PICKLING SOLUTION MAKER OM1 with ISR with collateral retrograde [...] is large. OM1 appears to be a PICKLING SOLUTION MAKER, with in stentrestenosis and fills retrograde [...] male admitted with STEMI s/p TNK, [facility] showing multivessel CAD including ISR, no [...] to our service. Signed: Paula Treviño PA-C [facility] Section of Cardiac Surgery Date: [...] surrogate would be surrogate decision maker per [place] decision making law. (Only good for 180 days) Any patient receiving care in [place] must abide by [place] law. The hierarchy for surrogate decision making [...] or living in a skilled nursing (including now)?: No In the past 12 [...] in the bathroom) Home Address confirmed as: [address] [place] [address] [address] [facility] [address] Social & Family Supports: All names listed [...] Pertinent/Service Specific Information: Health/Prescription Coverage: Primary Insurance: [facility] MANAGED MEDICARE Payor: [facility] MANAGED MEDICARE / Plan: [facility] MANAGED MEDICARE COMPLETE / Product Type: *No Product type* / Secondary Insurance: N/A ; Prescription Coverage: Yes Preferred Pharmacy: [id number] - [place], [place] - [address] [place] [address] [place] [id number] [place] Status: Patient is a : No Primary Care Provider confirmed: Mauro Berumen MD [phone] Patient/Caregiver Goals of Treatment: Potential Needs for [...] care as indicated. [facility], ext. [phone] * Brief Op Note - Angeles Gaxiola PA - 06/03/2024 12:23 AM EDT Preliminary Cardiac Catheterization Procedure Note: Patient Name: George Mehta : [id number] MR#: [id number] Case Date: 06/02/2024 - 06/03/2024 [place] Tower Loader: Surgeons and Role: * Nuha Shen MD - Primary * Angeles Gaxiola PA - Physician Copy Manager Preoperative diagnosis: STEMI Postoperative diagnosis: * STEMI * Procedure(s) performed: RRA access [facility] Coronary angiogram IVUS LM/LAD/LCX Access: 6 [...] prior [place] and 3 stents historically (in [place]) who presented to [facility] with 1 hour of rest chest pain [...] is large. OM1 appears to be a PICKLING SOLUTION MAKER, with in stentrestenosis and fills retrograde [...] 40 mg of lasix in the laborer starch factory. Recommendations: surgical consult for possible open revascularization; [...] PM EST Office Visit Cardiology at [address] [address] Moi Falcon MD [facility] [place] [address] Scheduled Orders Name Type Priority Associated Diagnoses [...] 7:20 AM EST Coronary artery disease involving [place] coronary artery of [place] heart without angina pectoris POC, GLUCOSE Routine [...] POC, GLUCOSE (06/21/2024 3:51 AM EST) Pathologist [facility] Glucometer, POC 142 65 - 199 mg/dL 06/21/2024 3:51 AM EST [facility] Comment:Supplemental ranges: <140 mg/dL before meals <180 mg/dL all other times of the day. Blood CAPILLARY BLOOD / Unknown 06/21/2024 3:51 AM EST 06/21/2024 3:51 AM EST Bobby Loja MD POINT OF CARE TEST O RDERABLES [facility] [place] [address] * (ABNORMAL) Basic Metabolic Panel (06/21/2024 2:09 AM EST) Pathologist [facility] Glucose 169 65 - 199 mg/dL 06/21/2024 3:10 AM [facility] Comment:Glucose Concentratio n >=200 mg/dL plus symptoms is consistent with Diabetes Mellitus. Blood Urea Nitrogen 27(H) 10 - 20 mg/dL 06/21/2024 3:10 AM [facility] Creatinine 1.24 0.80 - 1.50 mg/dL 06/21/2024 3:10 AM [facility] Sodium 138 135 - 145 mMol/L 06/21/2024 3:10 AM [facility] Potassium 4.2 3.5 - 5.0 mMol/L 06/21/2024 3:10 AM [facility] Chloride 100 98 - 107 mMol/L 06/21/2024 3:10 AM [facility] Carbon Dioxide 27 22 - 31 mMol/L 06/21/2024 3:10 AM [facility] Anion Gap 11 5 - 15 mMol/L 06/21/2024 3:10 AM [facility] Calcium 8.7 8.5 - 10.5 mg/dL 06/21/2024 3:10 AM [facility] Est Glomerular Filtration Rate - Male 64 mL/min/1. 73 m?? 06/21/2024 3:10 AM [facility] Comment: This [...] CHEMISTRY ORDERABL ES Performing Organization Address [facility] Co de Phone Number [facility] [place] [address] * POC, GLUCOSE (06/21/2024 12:04 AM EST) Glucometer, POC 157 65 - 199 mg/dL 06/21/2024 12:04 AM EST [facility] Comment:Supplemental ranges: <140 mg/dL before meals <180 mg/dL all other times of the day. Blood CAPILLARY BLOOD / Unknown 06/21/2024 12:04 AM EST 06/21/2024 12:04 AM EST Bobby Loja MD POINT OF CARE TEST O NIKA Performing Organization Address [facility] Co de Phone Number [facility] [place] [address] * POC, GLUCOSE (06/20/2024 11:14 PM EST) Glucometer, POC 67 65 - 199 mg/dL 06/20/2024 11:14 PM EST [facility] Comment:Supplemental ranges: <140 mg/dL before meals <180 mg/dL all other times of the day. Blood CAPILLARY BLOOD / Unknown 06/20/2024 11:14 PM EST 06/20/2024 11:14 PM EST Bobby Loja MD POINT OF CARE TEST O NIKA Performing Organization Address City/[facility]/ZIP Co de Phone Number [facility] [place] [address] * POC, GLUCOSE (06/20/2024 7:16 PM EST) Glucometer, POC 132 65 - 199 mg/dL 06/20/2024 7:16 PM EST [facility] Comment:Supplemental ranges: <140 mg/dL before meals <180 mg/dL all other times of the day. Blood CAPILLARY BLOOD / Unknown 06/20/2024 7:16 PM EST 06/20/2024 7:16 PM EST Bobby Loja MD POINT OF CARE TEST O RDBECKIE Performing Organization Address City/[facility]/ZIP Co de Phone Number [facility] [place] [address] * POC, GLUCOSE (06/20/2024 3:39 PM EST) Glucometer, POC 124 65 - 199 mg/dL 06/20/2024 3:40 PM EST [facility] Comment:Supplemental ranges: <140 mg/dL before meals <180 mg/dL all other times of the day. Blood CAPILLARY BLOOD / Unknown 06/20/2024 3:39 PM EST 06/20/2024 3:40 PM EST Bobby Loja MD POINT OF CARE TEST O NIKA Performing Organization Address [facility] Co de Phone Number [facility] [place] [address] * POC, GLUCOSE (06/20/2024 12:02 PM EST) Glucometer, POC 173 65 - 199 mg/dL 06/20/2024 12:03 PM EST [facility] Comment:Supplemental ranges: <140 mg/dL before meals <180 mg/dL all other times of the day. Blood CAPILLARY BLOOD / Unknown 06/20/2024 12:02 PM EST 06/20/2024 12:03 PM EST Bobby Loja MD POINT OF CARE TEST O NIKA Performing Organization Address City/[facility]/ZIP Co de Phone Number [facility] [place] [address] * POC, GLUCOSE (06/20/2024 7:10 AM EST) Glucometer, POC 130 65 - 199 mg/dL 06/20/2024 7:11 AM EST [facility] Comment:Supplemental ranges: <140 mg/dL before meals <180 mg/dL all other times of the day. Blood CAPILLARY BLOOD / Unknown 06/20/2024 7:10 AM EST 06/20/2024 7:11 AM EST Bobby Loja MD POINT OF CARE TEST O RDERABLES [facility] [place] [address] * (ABNORMAL) Basic Metabolic Panel (06/20/2024 2:28 AM EST) Glucose 79 65 - 199 mg/dL 06/20/2024 3:06 AM [facility] Comment:Glucose Concentratio n >=200 mg/dL plus symptoms is consistent with Diabetes Mellitus. Blood Urea Nitrogen 38(H) 10 - 20 mg/dL 06/20/2024 3:06 AM [facility] Creatinine 1.39 0.80 - 1.50 mg/dL 06/20/2024 3:06 AM [facility] Sodium 137 135 - 145 mMol/L 06/20/2024 3:06 AM [facility] Potassium 3.6 3.5 - 5.0 mMol/L 06/20/2024 3:06 AM [facility] Chloride 100 98 - 107 mMol/L 06/20/2024 3:06 AM [facility] Carbon Dioxide 29 22 - 31 mMol/L 06/20/2024 3:06 AM [facility] Anion Gap 8 5 - 15 mMol/L 06/20/2024 3:06 AM [facility] Calcium 8.4(L) 8.5 - 10.5 mg/dL 06/20/2024 3:06 AM [facility] Est Glomerular Filtration Rate - Male 56 mL/min/1. 73 m?? 06/20/2024 3:06 AM [facility] Comment: This [...] Organization Address City/[facility]/ZIP Co de Phone Number [facility] [place] [address] * POC, GLUCOSE (06/20/2024 12:32 AM EST) Glucometer, POC 86 65 - 199 mg/dL 06/20/2024 12:32 AM EST [facility] Comment:Supplemental ranges: <140 mg/dL before meals <180 mg/dL all other times of the day. Blood CAPILLARY BLOOD / Unknown 06/20/2024 12:32 AM EST 06/20/2024 12:32 AM EST Bobby Loja MD POINT OF CARE TEST O NIKA Performing Organization Address City/[facility]/ZIP Co de Phone Number [facility] [place] [address] * (ABNORMAL) POC, GLUCOSE (06/20/2024 12:02 AM EST) Glucometer, POC 59(L) 65 - 199 mg/dL 06/20/2024 12:02 AM EST [facility] Comment:Supplemental ranges: <140 mg/dL before meals <180 mg/dL all other times of the day. Blood CAPILLARY BLOOD / Unknown 06/20/2024 12:02 AM EST 06/20/2024 12:03 AM EST Bobby Loja MD POINT OF CARE TEST O RDERABLES Performing Organization Address [facility] Co de Phone Number [facility] [place] [address] * POC, GLUCOSE (06/19/2024 8:15 PM EST) Glucometer, POC 131 65 - 199 mg/dL 06/19/2024 8:15 PM EST [facility] Comment:Supplemental ranges: <140 mg/dL before meals <180 mg/dL all other times of the day. Blood CAPILLARY BLOOD / Unknown 06/19/2024 8:15 PM EST 06/19/2024 8:15 PM EST Bobby Loja MD POINT OF CARE TEST O NIKA Performing Organization Address [facility] Co de Phone Number [facility] [place] [address] * POC, GLUCOSE (06/19/2024 6:01 PM EST) Glucometer, POC 129 65 - 199 mg/dL 06/19/2024 6:01 PM EST [facility] Comment:Supplemental ranges: <140 mg/dL before meals <180 mg/dL all other times of the day. Blood CAPILLARY BLOOD / Unknown 06/19/2024 6:01 PM EST 06/19/2024 6:02 PM EST Bobby Loja MD POINT OF CARE TEST O RDERAPIETER Performing Organization Address City/[facility] Co de Phone Number [facility] [place] [address] * POC, GLUCOSE (06/19/2024 4:51 PM EST) Glucometer, POC 155 65 - 199 mg/dL 06/19/2024 4:51 PM EST [facility] Comment:Supplemental ranges: <140 mg/dL before meals <180 mg/dL all other times of the day. Blood CAPILLARY BLOOD / Unknown 06/19/2024 4:51 PM EST 06/19/2024 4:51 PM EST Bobby Loja MD POINT OF CARE TEST O RDERAPIETER Performing Organization Address City/[facility] Co de Phone Number [facility] [place] [address] * POC, GLUCOSE (06/19/2024 12:37 PM EST) Glucometer, POC 136 65 - 199 mg/dL 06/19/2024 12:37 PM EST [facility] Comment:Supplemental ranges: <140 mg/dL before meals <180 mg/dL all other times of the day. Blood CAPILLARY BLOOD / Unknown 06/19/2024 12:37 PM EST 06/19/2024 12:37 PM EST Bobby Loja MD POINT OF CARE TEST O NIKA Performing Organization Address [facility] Co de Phone Number [facility] [place] [address] * POC, GLUCOSE (06/19/2024 11:20 AM EST) Glucometer, POC 185 65 - 199 mg/dL 06/19/2024 11:21 AM EST [facility] Comment:Supplemental ranges: <140 mg/dL before meals <180 mg/dL all other times of the day. Blood CAPILLARY BLOOD / Unknown 06/19/2024 11:20 AM EST 06/19/2024 11:21 AM EST Bobby Loja MD POINT OF CARE TEST O RALPHERAPIETER Performing Organization Address City/[facility]/ZIP Co de Phone Number [facility] [place] [address] * POC, GLUCOSE (06/19/2024 7:21 AM EST) Glucometer, POC 125 65 - 199 mg/dL 06/19/2024 7:21 AM EST [facility] Comment:Supplemental ranges: <140 mg/dL before meals <180 mg/dL all other times of the day. Blood CAPILLARY BLOOD / Unknown 06/19/2024 7:21 AM EST 06/19/2024 7:22 AM EST Bobby Loja MD POINT OF CARE TEST O NIKA Performing Organization Address [facility] Co de Phone Number [facility] [place] [address] * POC, GLUCOSE (06/19/2024 4:52 AM EST) Glucometer, POC 125 65 - 199 mg/dL 06/19/2024 4:52 AM EST [facility] Comment:Supplemental ranges: <140 mg/dL before meals <180 mg/dL all other times of the day. Blood CAPILLARY BLOOD / Unknown 06/19/2024 4:52 AM EST 06/19/2024 4:52 AM EST Bobby Loja MD POINT OF CARE TEST O NIKA Performing Organization Address [facility] Co de Phone Number [facility] [place] [address] * POC, GLUCOSE (06/19/2024 4:13 AM EST) Glucometer, POC 67 65 - 199 mg/dL 06/19/2024 4:13 AM EST [facility] Comment:Supplemental ranges: <140 mg/dL before meals <180 mg/dL all other times of the day. Blood CAPILLARY BLOOD / Unknown 06/19/2024 4:13 AM EST 06/19/2024 4:13 AM EST Narrative Authorizing Provider Result Saranya Loja MD POINT OF CARE TEST O NIKA Performing Organization Address [facility] Co de Phone Number [facility] [place] [address] * (ABNORMAL) POC, GLUCOSE (06/19/2024 3:48 AM EST) Glucometer, POC 51(LLL) 65 - 199 mg/dL 06/19/2024 3:48 AM [facility] Comment:Supplemental ranges: <140 mg/dL before meals <180 mg/dL all other times of the day. Blood CAPILLARY BLOOD / Unknown 06/19/2024 3:48 AM EST 06/19/2024 3:48 AM EST Bobby Loja MD POINT OF CARE TEST O RDERABLES [facility] [place] [address] * (ABNORMAL) Basic Metabolic Panel (06/19/2024 3:44 AM EST) Glucose 53(LLL) 65 - 199 mg/dL 06/19/2024 4:48 AM [facility] Comment:Glucose Concentratio n >=200 mg/dL plus symptoms is consistent with Diabetes Mellitus. Blood Urea Nitrogen 42(H) 10 - 20 mg/dL 06/19/2024 4:48 AM [facility] Creatinine 1.29 0.80 - 1.50 mg/dL 06/19/2024 4:48 AM [facility] Sodium 138 135 - 145 mMol/L 06/19/2024 4:48 AM [facility] Potassium 3.6 3.5 - 5.0 mMol/L 06/19/2024 4:48 AM [facility] Chloride 100 98 - 107 mMol/L 06/19/2024 4:48 AM [facility] Carbon Dioxide 29 22 - 31 mMol/L 06/19/2024 4:48 AM [facility] Anion Gap 9 5 - 15 mMol/L 06/19/2024 4:48 AM [facility] Calcium 8.8 8.5 - 10.5 mg/dL 06/19/2024 4:48 AM [facility] Est Glomerular Filtration Rate - Male 61 mL/min/1. 73 m?? 06/19/2024 4:48 AM [facility] Comment: This [...] CHEMISTRY ORDERABL ES Performing Organization Address [facility] Co de Phone Number [facility] [place] [address] * POC, GLUCOSE (06/19/2024 12:23 AM EST) Glucometer, POC 82 65 - 199 mg/dL 06/19/2024 12:23 AM EST [facility] Comment:Supplemental ranges: <140 mg/dL before meals <180 mg/dL all other times of the day. Blood CAPILLARY BLOOD / Unknown 06/19/2024 12:23 AM EST 06/19/2024 12:23 AM EST Bobby Loja MD POINT OF CARE TEST O RDERABLES [facility] [place] [address] * POC, GLUCOSE (06/18/2024 11:08 PM EST) Glucometer, POC 73 65 - 199 mg/dL 06/18/2024 11:08 PM EST [facility] Comment:Supplemental ranges: <140 mg/dL before meals <180 mg/dL all other times of the day. Blood CAPILLARY BLOOD / Unknown 06/18/2024 11:08 PM EST 06/18/2024 11:08 PM EST Bobby Loja MD POINT OF CARE TEST O RDBECKIE Performing Organization Address [facility]/ZIP Co de Phone Number [facility] [place] [address] * POC, GLUCOSE (06/18/2024 7:32 PM EST) Glucometer, POC 167 65 - 199 mg/dL 06/18/2024 7:32 PM EST [facility] Comment:Supplemental ranges: <140 mg/dL before meals <180 mg/dL all other times of the day. Blood CAPILLARY BLOOD / Unknown 06/18/2024 7:32 PM EST 06/18/2024 7:32 PM EST Bobby Loja MD POINT OF CARE TEST O NIKA Performing Organization Address [facility] Co de Phone Number [facility] [place] [address] * POC, GLUCOSE (06/18/2024 6:08 PM EST) Glucometer, POC 140 65 - 199 mg/dL 06/18/2024 6:09 PM EST [facility] Comment:Supplemental ranges: <140 mg/dL before meals <180 mg/dL all other times of the day. Blood CAPILLARY BLOOD / Unknown 06/18/2024 6:08 PM EST 06/18/2024 6:09 PM EST Bobby Loja MD POINT OF CARE TEST O NIKA Performing Organization Address City/[facility]/ZIP Co de Phone Number [facility] [place] [address] * POC, GLUCOSE (06/18/2024 4:17 PM EST) Glucometer, POC 144 65 - 199 mg/dL 06/18/2024 4:17 PM EST [facility] Comment:Supplemental ranges: <140 mg/dL before meals <180 mg/dL all other times of the day. Blood CAPILLARY BLOOD / Unknown 06/18/2024 4:17 PM EST 06/18/2024 4:17 PM EST Narrative Authorizing Provider Result Saranya Loja MD POINT OF CARE TEST O NIKA Performing Organization Address [facility] Co de Phone Number [facility] [place] [address] * POC, GLUCOSE (06/18/2024 12:09 PM EST) Glucometer, POC 180 65 - 199 mg/dL 06/18/2024 12:09 PM EST [facility] Comment:Supplemental ranges: <140 mg/dL before meals <180 mg/dL all other times of the day. Blood CAPILLARY BLOOD / Unknown 06/18/2024 12:09 PM EST 06/18/2024 12:09 PM EST Narrative Authorizing Provider Result Saranya Loja MD POINT OF CARE TEST Abimael MAHER Performing Organization Address [facility] Co de Phone Number [facility] [place] [address] * POC, GLUCOSE (06/18/2024 7:49 AM EST) Glucometer, POC 125 65 - 199 mg/dL 06/18/2024 7:50 AM EST [facility] Comment:Supplemental ranges: <140 mg/dL before meals <180 mg/dL all other times of the day. Blood CAPILLARY BLOOD / Unknown 06/18/2024 7:49 AM EST 06/18/2024 7:50 AM EST Narrative Authorizing Provider Result Saranya Loja MD POINT OF CARE TEST Abimael MAHER Performing Organization Address [facility] Co de Phone Number [facility] [place] [address] * (ABNORMAL) Basic Metabolic Panel (06/18/2024 4:19 AM EST) Glucose 103 65 - 199 mg/dL 06/18/2024 5:03 AM EST [facility] Comment:Glucose Concentratio n >=200 mg/dL plus symptoms is consistent with Diabetes Mellitus. Blood Urea Nitrogen 43(H) 10 - 20 mg/dL 06/18/2024 5:03 AM [facility] Creatinine 1.45 0.80 - 1.50 mg/dL 06/18/2024 5:03 AM [facility] Sodium 131(L) 135 - 145 mMol/L 06/18/2024 5:03 AM [facility] Potassium 4.2 3.5 - 5.0 mMol/L 06/18/2024 5:03 AM [facility] Chloride 97(L) 98 - 107 mMol/L 06/18/2024 5:03 AM [facility] Carbon Dioxide 25 22 - 31 mMol/L 06/18/2024 5:03 AM [facility] Anion Gap 9 5 - 15 mMol/L 06/18/2024 5:03 AM [facility] Calcium 8.5 8.5 - 10.5 mg/dL 06/18/2024 5:03 AM [facility] Est Glomerular Filtration Rate - Male 53 mL/min/1. 73 m?? 06/18/2024 5:03 AM [facility] Comment: This [...] Organization Address City/[facility] Co de Phone Number [facility] [place] [address] * POC, GLUCOSE (06/18/2024 3:50 AM EST) Glucometer, POC 99 65 - 199 mg/dL 06/18/2024 3:51 AM EST [facility] Comment:Supplemental ranges: <140 mg/dL before meals <180 mg/dL all other times of the day. Blood CAPILLARY BLOOD / Unknown 06/18/2024 3:50 AM EST 06/18/2024 3:51 AM EST Bobby Loja MD POINT OF CARE TEST O NIKA Performing Organization Address [facility] Co de Phone Number [facility] [place] [address] * POC, GLUCOSE (06/17/2024 11:10 PM EST) Glucometer, POC 92 65 - 199 mg/dL 06/17/2024 11:10 PM EST [facility] Comment:Supplemental ranges: <140 mg/dL before meals <180 mg/dL all other times of the day. Blood CAPILLARY BLOOD / Unknown 06/17/2024 11:10 PM EST 06/17/2024 11:10 PM EST Bobby Loja MD POINT OF CARE TEST O NIKA Performing Organization Address [facility] Co de Phone Number [facility] [place] [address] * POC, GLUCOSE (06/17/2024 7:54 PM EST) Glucometer, POC 126 65 - 199 mg/dL 06/17/2024 7:54 PM EST [facility] Comment:Supplemental ranges: <140 mg/dL before meals <180 mg/dL all other times of the day. Blood CAPILLARY BLOOD / Unknown 06/17/2024 7:54 PM EST 06/17/2024 7:54 PM EST Bobby Loja MD POINT OF CARE TEST O RDERAPIETER Performing Organization Address [facility] de Phone Number [facility] [place] [address] * POC, GLUCOSE (06/17/2024 4:07 PM EST) Glucometer, POC 141 65 - 199 mg/dL 06/17/2024 4:12 PM EST [facility] Comment:Supplemental ranges: <140 mg/dL before meals <180 mg/dL all other times of the day. Blood CAPILLARY BLOOD / Unknown 06/17/2024 4:07 PM EST 06/17/2024 4:12 PM EST Bobby Loja MD POINT OF CARE TEST O RALPHERAPIETER Performing Organization Address [facility] de Phone Number [facility] [place] [address] * XR Chest PA & Lateral (Generic) (06/17/2024 1:46 PM EST) WORKSTATION ID [id number] DH RAD Anatomical Region Laterality Modality Chest [...] who have questions please contact the health senior care assistant that requested your imaging first. ? Electronically signed by: Josselyn Bebe, MD, [facility] ([phone]), at 06/17/2024 4:49 PM Narrative 06/17/2024 4:49 [...] patients who have questions please contactthe health senior care assistant that requested your imaging first. Electronically signed by: Josselyn Spence MD, [facility]([phone]), at 06/17/2024 4:49 PM Keila Hanley APRN IMG DX ORDERABLES * (ABNORMAL) POC, GLUCOSE (06/17/2024 11:04 AM EST) [facility] Glucometer, POC 245(H) 65 - 199 mg/dL 06/17/2024 11:04 AM EST [facility] Comment:Supplemental ranges: <140 mg/dL before meals <180 mg/dL all other times of the day. Blood CAPILLARY BLOOD / Unknown 06/17/2024 11:04 AM EST 06/17/2024 11:04 AM EST Bobby Loja MD POINT OF CARE TEST O NIKA Performing Organization Address City/[facility] Co de Phone Number [facility] [place] [address] * POC, GLUCOSE (06/17/2024 7:49 AM EST) Glucometer, POC 141 65 - 199 mg/dL 06/17/2024 7:55 AM EST [facility] Comment:Supplemental ranges: <140 mg/dL before meals <180 mg/dL all other times of the day. Blood CAPILLARY BLOOD / Unknown 06/17/2024 7:49 AM EST 06/17/2024 7:55 AM EST Bobby Loja MD POINT OF CARE TEST Abimael MAHER Performing Organization Address [facility] Co de Phone Number [facility] [place] [address] * POC, GLUCOSE (06/17/2024 4:16 AM EST) Glucometer, POC 139 65 - 199 mg/dL 06/17/2024 4:16 AM EST [facility] Comment:Supplemental ranges: <140 mg/dL before meals <180 mg/dL all other times of the day. Blood CAPILLARY BLOOD / Unknown 06/17/2024 4:16 AM EST 06/17/2024 4:17 AM EST Narrative Authorizing Provider Result Saranya Loja MD POINT OF CARE TEST O NIKA Performing Organization Address City/[facility] Co de Phone Number [facility] [place] [address] * Lactate, Whole Blood (06/17/2024 2:39 AM EST) Lactate, Whole Blood 1.3 0.5 - 2.2 mmol/L 06/17/2024 2:46 AM EST [facility] Blood VENOUS BLOOD SPECIMEN / Unknown Venipuncture / Unknown 06/17/2024 2:39 AM EST 06/17/2024 2:43 AM EST Bobby Loja MD CHEMISTRY ORDERABLES [facility] [place] [address] * (ABNORMAL) Hemogram (06/17/2024 2:39 AM EST) White Blood Cell 13.53(H) 4.00 - 9.50 x10(3)/mc L 06/17/2024 2:53 AM [facility] Red Blood Cell 3.55(L) 4.58 - 5.54 x10(6)/mc L 06/17/2024 2:53 AM [facility] Hemoglobin 10.8(L) 13.7 - 16.5 g/dL 06/17/2024 2:53 AM [facility] Hematocrit 33.0(L) 40.5 - 48.5 % 06/17/2024 2:53 AM [facility] Mean Cell Volume 93.0 82.9 - 93.1 fL 06/17/2024 2:53 AM [facility] Mean Cell Hemoglobin 30.4 27.5 - 32.1 pg 06/17/2024 2:53 AM [facility] Mean Cell Hemoglobin Concentration 32.7 32.0 - 35.7 g/dL 06/17/2024 2:53 AM [facility] Platelet 101(L) 145 - 357 x10(3)/mc L 06/17/2024 2:53 AM [facility] Mean Platelet Volume 10.4 7.6 - 12.9 fL 06/17/2024 2:53 AM [facility] RDW Standard Deviation 48.4(H) 36.0 - 45.0 fL 06/17/2024 2:53 AM [facility] RDW coefficient of variation 14.1(H) 11.4 - 13.8 % 06/17/2024 2:53 AM [facility] NRBC% auto 0.0 % 06/17/2024 2:53 AM [facility] NRBC Absolute <0.01 <0.01 x10(3)/mc L 06/17/2024 2:53 AM [facility] Blood VENOUS BLOOD SPECIMEN / Unknown Venipuncture / Unknown 06/17/2024 2:39 AM EST 06/17/2024 2:43 AM EST Bobby Loja MD HEMATOLOGY ORDERABLE S [facility] [place] [phone] * (ABNORMAL) Basic Metabolic Panel (06/17/2024 2:39 AM EST) Glucose 149 65 - 199 mg/dL 06/17/2024 3:14 AM [facility] Comment:Glucose Concentratio n >=200 mg/dL plus symptoms is consistent with Diabetes Mellitus. Blood Urea Nitrogen 42(H) 10 - 20 mg/dL 06/17/2024 3:14 AM [facility] Creatinine 1.52(H) 0.80 - 1.50 mg/dL 06/17/2024 3:14 AM [facility] Sodium 133(L) 135 - 145 mMol/L 06/17/2024 3:14 AM [facility] Potassium 4.5 3.5 - 5.0 mMol/L 06/17/2024 3:14 AM [facility] Chloride 101 98 - 107 mMol/L 06/17/2024 3:14 AM [facility] Carbon Dioxide 23 22 - 31 mMol/L 06/17/2024 3:14 AM [facility] Anion Gap 9 5 - 15 mMol/L 06/17/2024 3:14 AM EST [facility] Calcium 8.8 8.5 - 10.5 mg/dL 06/17/2024 3:14 AM EST [facility] Est Glomerular Filtration Rate - Male 50 mL/min/1. 73 m?? 06/17/2024 3:14 AM EST [facility] Comment: This patient's estimated [...] MD CHEMISTRY ORDERABLES Performing Organization Address [facility]/ZIP Co de Phone Number [facility] [place] [address] * (ABNORMAL) POC, GLUCOSE (06/17/2024 12:13 AM EST) [facility] Signature Glucometer, POC 211(H) 65 - 199 mg/dL 06/17/2024 12:13 AM EST [facility] Comment:Supplemental ranges: <140 mg/dL before meals <180 mg/dL all other times of the day. Blood CAPILLARY BLOOD / Unknown 06/17/2024 12:13 AM EST 06/17/2024 12:14 AM EST Bobby Loja MD POINT OF CARE TEST O RDERABLES Performing Organization Address City/[facility]/ZIP Co de Phone Number [facility] [place] [address] * (ABNORMAL) POC, GLUCOSE (06/16/2024 7:22 PM EST) Glucometer, POC 229(H) 65 - 199 mg/dL 06/16/2024 7:22 PM EST [facility] Comment:Supplemental ranges: <140 mg/dL before meals <180 mg/dL all other times of the day. Blood CAPILLARY BLOOD / Unknown 06/16/2024 7:22 PM EST 06/16/2024 7:22 PM EST Bobby Loja MD POINT OF CARE TEST O RDERABLES [facility] [place] [address] * (ABNORMAL) POC, GLUCOSE (06/16/2024 6:14 PM EST) Glucometer, POC 220(H) 65 - 199 mg/dL 06/16/2024 6:14 PM EST [facility] Comment:Supplemental ranges: <140 mg/dL before meals <180 mg/dL all other times of the day. Blood CAPILLARY BLOOD / Unknown 06/16/2024 6:14 PM EST 06/16/2024 6:14 PM EST Narrative Authorizing Provider Result Saranya Loja MD POINT OF CARE TEST O RDERABLES Performing Organization Address City/[facility]/ZIP Co de Phone Number [facility] [place] [address] * Lactate, Whole Blood (06/16/2024 6:14 PM EST) Lactate, Whole Blood 1.8 0.5 - 2.2 mmol/L 06/16/2024 6:27 PM EST [facility] Blood VENOUS BLOOD SPECIMEN / Unknown Venipuncture / Unknown 06/16/2024 6:14 PM EST 06/16/2024 6:25 PM EST Narrative Authorizing Provider Result Saranya Loja MD CHEMISTRY ORDERABLES [facility] [place] [address] * (ABNORMAL) POC, GLUCOSE (06/16/2024 4:14 PM EST) Glucometer, POC 240(H) 65 - 199 mg/dL 06/16/2024 4:14 PM EST [facility] Comment:Supplemental ranges: <140 mg/dL before meals <180 mg/dL all other times of the day. Blood CAPILLARY BLOOD / Unknown 06/16/2024 4:14 PM EST 06/16/2024 4:14 PM EST Bobby Loja MD POINT OF CARE TEST O NIKA Performing Organization Address City/[facility]/ZIP Co de Phone Number [facility] [place] [address] * POC, GLUCOSE (06/16/2024 11:49 AM EST) Glucometer, POC 199 65 - 199 mg/dL 06/16/2024 11:49 AM EST [facility] Comment:Supplemental ranges: <140 mg/dL before meals <180 mg/dL all other times of the day. Blood CAPILLARY BLOOD / Unknown 06/16/2024 11:49 AM EST 06/16/2024 11:49 AM EST Bobby Loja MD POINT OF CARE TEST O NIKA Performing Organization Address City/[facility]/ZIP Co de Phone Number [facility] [place] [address] * (ABNORMAL) Hemogram (06/16/2024 11:44 AM EST) White Blood Cell 17.91(H) 4.00 - 9.50 x10(3)/mc L 06/16/2024 12:25 PM EST [facility] Red Blood Cell 3.47(L) 4.58 - 5.54 x10(6)/mc L 06/16/2024 12:25 PM EST [facility] Hemoglobin 10.5(L) 13.7 - 16.5 g/dL 06/16/2024 12:25 PM [facility] Hematocrit 33.1(L) 40.5 - 48.5 % 06/16/2024 12:25 PM [facility] Mean Cell Volume 95.4(H) 82.9 - 93.1 fL 06/16/2024 12:25 PM [facility] Mean Cell Hemoglobin 30.3 27.5 - 32.1 pg 06/16/2024 12:25 PM [facility] Mean Cell Hemoglobin Concentration 31.7(L) 32.0 - 35.7 g/dL 06/16/2024 12:25 PM [facility] Platelet 101(L) 145 - 357 x10(3)/mc L 06/16/2024 12:25 PM [facility] Mean Platelet Volume 10.6 7.6 - 12.9 fL 06/16/2024 12:25 PM [facility] RDW Standard Deviation 49.5(H) 36.0 - 45.0 fL 06/16/2024 12:25 PM [facility] RDW coefficient of variation 14.2(H) 11.4 - 13.8 % 06/16/2024 12:25 PM [facility] NRBC% auto 0.0 % 06/16/2024 12:25 PM [facility] NRBC Absolute <0.01 <0.01 x10(3)/mc L 06/16/2024 12:25 PM [facility] Blood VENOUS BLOOD SPECIMEN / Unknown Venipuncture / Unknown 06/16/2024 11:44 AM EST 06/16/2024 12:03 PM EST Bobby Loja MD HEMATOLOGY ORDERABLE S [facility] [place] [address] * Lactate, Whole Blood (06/16/2024 9:02 AM EST) Lactate, Whole Blood 1.8 0.5 - 2.2 mmol/L 06/16/2024 9:19 AM EST [facility] Blood VENOUS BLOOD SPECIMEN / Unknown Venipuncture / Unknown 06/16/2024 9:02 AM EST 06/16/2024 9:17 AM EST Bobby Loja MD CHEMISTRY ORDERABLES [facility] [place] [address] * POC, GLUCOSE (06/16/2024 7:44 AM EST) Glucometer, POC 129 65 - 199 mg/dL 06/16/2024 7:44 AM EST [facility] Comment:Supplemental ranges: <140 mg/dL before meals <180 mg/dL all other times of the day. Blood CAPILLARY BLOOD / Unknown 06/16/2024 7:44 AM EST 06/16/2024 7:44 AM EST Bobby Loja MD POINT OF CARE TEST O RDERABLES Performing Organization Address City/[facility]/ZIP Co de Phone Number [facility] [place] [address] * POC, GLUCOSE (06/16/2024 4:01 AM EST) Glucometer, POC 158 65 - 199 mg/dL 06/16/2024 4:01 AM EST [facility] Comment:Supplemental ranges: <140 mg/dL before meals <180 mg/dL all other times of the day. Blood CAPILLARY BLOOD / Unknown 06/16/2024 4:01 AM EST 06/16/2024 4:01 AM EST Narrative Authorizing Provider Result Saranya Loja MD POINT OF CARE TEST O RDERABLES [facility] [place] [address] * (ABNORMAL) Basic Metabolic Panel (06/16/2024 2:23 AM EST) Glucose 177 65 - 199 mg/dL 06/16/2024 3:13 AM [facility] Comment:Glucose Concentratio n >=200 mg/dL plus symptoms is consistent with Diabetes Mellitus. Blood Urea Nitrogen 37(H) 10 - 20 mg/dL 06/16/2024 3:13 AM [facility] Creatinine 2.10(H) 0.80 - 1.50 mg/dL 06/16/2024 3:13 AM [facility] Sodium 132(L) 135 - 145 mMol/L 06/16/2024 3:13 AM [facility] Potassium 4.5 3.5 - 5.0 mMol/L 06/16/2024 3:13 AM [facility] Chloride 99 98 - 107 mMol/L 06/16/2024 3:13 AM [facility] Carbon Dioxide 22 22 - 31 mMol/L 06/16/2024 3:13 AM [facility] Anion Gap 11 5 - 15 mMol/L 06/16/2024 3:13 AM [facility] Calcium 9.0 8.5 - 10.5 mg/dL 06/16/2024 3:13 AM [facility] Est Glomerular Filtration Rate - Male 34 mL/min/1. 73 m?? 06/16/2024 3:13 AM [facility] Comment: This [...] MD CHEMISTRY ORDERABLES Performing Organization Address [facility] Co de Phone Number [facility] [place] [address] * POC, GLUCOSE (06/16/2024 2:21 AM EST) Glucometer, POC 176 65 - 199 mg/dL 06/16/2024 2:31 AM EST [facility] Comment:Supplemental ranges: <140 mg/dL before meals <180 mg/dL all other times of the day. Blood CAPILLARY BLOOD / Unknown 06/16/2024 2:21 AM EST 06/16/2024 2:31 AM EST Bobby Loja MD POINT OF CARE TEST O RDERABLES Performing Organization Address [facility] Co de Phone Number [facility] [place] [address] * (ABNORMAL) POC, GLUCOSE (06/16/2024 12:09 AM EST) Glucometer, POC 222(H) 65 - 199 mg/dL 06/16/2024 12:09 AM EST [facility] Comment:Supplemental ranges: <140 mg/dL before meals <180 mg/dL all other times of the day. Blood CAPILLARY BLOOD / Unknown 06/16/2024 12:09 AM EST 06/16/2024 12:09 AM EST Bobby Loaj MD POINT OF CARE TEST O RDBECKIE Performing Organization Address [facility] Co de Phone Number [facility] [place] [address] * (ABNORMAL) POC, GLUCOSE (06/15/2024 10:07 PM EST) Glucometer, POC 320(H) 65 - 199 mg/dL 06/15/2024 10:07 PM EST [facility] Comment:Supplemental ranges: <140 mg/dL before meals <180 mg/dL all other times of the day. Blood CAPILLARY BLOOD / Unknown 06/15/2024 10:07 PM EST 06/15/2024 10:07 PM EST Bobby Loja MD POINT OF CARE TEST O NIKA Performing Organization Address City/[facility]/ZIP Co de Phone Number [facility] [place] [address] * (ABNORMAL) POC, GLUCOSE (06/15/2024 7:56 PM EST) Glucometer, POC 304(H) 65 - 199 mg/dL 06/15/2024 7:56 PM EST [facility] Comment:Supplemental ranges: <140 mg/dL before meals <180 mg/dL all other times of the day. Blood CAPILLARY BLOOD / Unknown 06/15/2024 7:56 PM EST 06/15/2024 7:56 PM EST Bobby Loja MD POINT OF CARE TEST O NIKA Performing Organization Address [facility] Co de Phone Number [facility] [place] [address] * (ABNORMAL) POC, GLUCOSE (06/15/2024 7:52 PM EST) Glucometer, POC 288(H) 65 - 199 mg/dL 06/15/2024 7:52 PM EST [facility] Comment:Supplemental ranges: <140 mg/dL before meals <180 mg/dL all other times of the day. Blood CAPILLARY BLOOD / Unknown 06/15/2024 7:52 PM EST 06/15/2024 7:52 PM EST Narrative Authorizing Provider Result Saranya Loja MD POINT OF CARE TEST O NIKA Performing Organization Address City/[facility]/ZIP Co de Phone Number [facility] [place] [address] * POC, GLUCOSE (06/15/2024 4:21 PM EST) Glucometer, POC 192 65 - 199 mg/dL 06/15/2024 4:21 PM EST [facility] Comment:Supplemental ranges: <140 mg/dL before meals <180 mg/dL all other times of the day. Blood CAPILLARY BLOOD / Unknown 06/15/2024 4:21 PM EST 06/15/2024 4:21 PM EST Bobby Loja MD POINT OF CARE TEST O NIKA Performing Organization Address City/[facility]/ZIP Co de Phone Number [facility] [place] [address] * POC, GLUCOSE (06/15/2024 3:27 PM EST) Glucometer, POC 155 65 - 199 mg/dL 06/15/2024 3:27 PM EST [facility] Comment:Supplemental ranges: <140 mg/dL before meals <180 mg/dL all other times of the day. Blood CAPILLARY BLOOD / Unknown 06/15/2024 3:27 PM EST 06/15/2024 3:27 PM EST Bobby Loja MD POINT OF CARE TEST O NIKA Performing Organization Address [facility] Co de Phone Number [facility] [place] [address] * POC, GLUCOSE (06/15/2024 2:23 PM EST) Glucometer, POC 160 65 - 199 mg/dL 06/15/2024 2:23 PM EST [facility] Comment:Supplemental ranges: <140 mg/dL before meals <180 mg/dL all other times of the day. Blood CAPILLARY BLOOD / Unknown 06/15/2024 2:23 PM EST 06/15/2024 2:23 PM EST Bobby Loja MD POINT OF CARE TEST O NIKA Performing Organization Address City/[facility]/ZIP Co de Phone Number [facility] [place] [address] * POC, GLUCOSE (06/15/2024 1:26 PM EST) Glucometer, POC 167 65 - 199 mg/dL 06/15/2024 1:26 PM EST [facility] Comment:Supplemental ranges: <140 mg/dL before meals <180 mg/dL all other times of the day. Blood CAPILLARY BLOOD / Unknown 06/15/2024 1:26 PM EST 06/15/2024 1:26 PM EST Bobby Loja MD POINT OF CARE TEST O NIKA Performing Organization Address [facility] Co de Phone Number [facility] [place] [address] * (ABNORMAL) POC, GLUCOSE (06/15/2024 12:55 PM EST) Glucometer, POC 210(H) 65 - 199 mg/dL 06/15/2024 12:55 PM EST [facility] Comment:Supplemental ranges: <140 mg/dL before meals <180 mg/dL all other times of the day. Blood CAPILLARY BLOOD / Unknown 06/15/2024 12:55 PM EST 06/15/2024 12:55 PM EST Bobby oLja MD POINT OF CARE TEST O NIKA Performing Organization Address [facility] Co de Phone Number [facility] [place] [address] * (ABNORMAL) POC, GLUCOSE (06/15/2024 11:29 AM EST) Glucometer, POC 220(H) 65 - 199 mg/dL 06/15/2024 11:29 AM EST [facility] Comment:Supplemental ranges: <140 mg/dL before meals <180 mg/dL all other times of the day. Blood CAPILLARY BLOOD / Unknown 06/15/2024 11:29 AM EST 06/15/2024 11:29 AM EST Bobby Loja MD POINT OF CARE TEST O RDERABLES [facility] [place] [place] [address] * (ABNORMAL) Basic Metabolic Panel (06/15/2024 11:23 AM EST) Glucose 215(H) 65 - 199 mg/dL 06/15/2024 12:08 PM EST [facility] Comment:Glucose Concentratio n >=200 mg/dL plus symptoms is consistent with Diabetes Mellitus. Blood Urea Nitrogen 24(H) 10 - 20 mg/dL 06/15/2024 12:08 PM [facility] Creatinine 1.54(H) 0.80 - 1.50 mg/dL 06/15/2024 12:08 PM [facility] Sodium 135 135 - 145 mMol/L 06/15/2024 12:08 PM [facility] Potassium 4.5 3.5 - 5.0 mMol/L 06/15/2024 12:08 PM [facility] Chloride 105 98 - 107 mMol/L 06/15/2024 12:08 PM [facility] Carbon Dioxide 19(L) 22 - 31 mMol/L 06/15/2024 12:08 PM [facility] Anion Gap 11 5 - 15 mMol/L 06/15/2024 12:08 PM [facility] Calcium 8.3(L) 8.5 - 10.5 mg/dL 06/15/2024 12:08 PM [facility] Est Glomerular Filtration Rate - Male 49 mL/min/1. 73 m?? 06/15/2024 12:08 PM [facility] Comment: This patient's [...] Provider Result Saranya Loja MD CHEMISTRY ORDERABLES [facility] [place] [address] * POC, GLUCOSE (06/15/2024 10:29 AM EST) Glucometer, POC 189 65 - 199 mg/dL 06/15/2024 10:29 AM EST [facility] Comment:Supplemental ranges: <140 mg/dL before meals <180 mg/dL all other times of the day. Blood CAPILLARY BLOOD / Unknown 06/15/2024 10:29 AM EST 06/15/2024 10:29 AM EST Bobby Loja MD POINT OF CARE TEST O RDERABLES Performing Organization Address City/[facility]/ZIP Co de Phone Number [facility] [place] [address] * POC, GLUCOSE (06/15/2024 9:45 AM EST) Glucometer, POC 178 65 - 199 mg/dL 06/15/2024 9:45 AM EST [facility] Comment:Supplemental ranges: <140 mg/dL before meals <180 mg/dL all other times of the day. Blood CAPILLARY BLOOD / Unknown 06/15/2024 9:45 AM EST 06/15/2024 9:45 AM EST Narrative Authorizing Provider Result Saranya Loja MD POINT OF CARE TEST O RDERABLES [facility] [place] [place] [address] * (ABNORMAL) Cooximetry, POC (06/15/2024 9:31 AM EST) pO2, Coox 38 mmHg 06/15/2024 9:34 AM [facility] Hemoglobin, Coox 12.9(L) 13.7 - 16.5 g/dL 06/15/2024 9:34 AM [facility] Oxyhemoglobin, Coox 72.1 % 06/15/2024 9:34 AM [facility] Carboxyhemoglo bin, Coox 0.9 % 06/15/2024 9:34 AM [facility] Comment: Nonsmokers: 0.5-1.5% COHB ?? Smokers: Variable ??but usually less than 10% ?? Toxic: 20-30% COHB ?? Lethal: Greater than 60% COHB Methemoglobin, Coox 0.3 <=1.5 % 06/15/2024 9:34 AM [facility] Blood (Mixed Venous) 06/15/2024 9:31 AM EST 06/15/2024 9:34 AM EST Bobby Loja MD POINT OF CARE TEST O RDERABLES [facility] [place] [place] [address] * Cooximetry, POC (06/15/2024 9:22 AM EST) pO2, Coox 30 mmHg 06/15/2024 9:25 AM [facility] Hemoglobin, Coox 06/15/2024 9:25 AM [facility] Comment:QUES Oxyhemoglobin, Coox 06/15/2024 9:25 AM [facility] Comment:QUES Carboxyhemoglo bin, Coox 06/15/2024 9:25 AM [facility] Comment:QUES Methemoglobin, Coox 06/15/2024 9:25 AM [facility] Comment:QUES Blood (Mixed Venous) 06/15/2024 9:22 AM EST 06/15/2024 9:25 AM EST Bobby Loja MD POINT OF CARE TEST O RDERABLES [facility] [place] [address] * (ABNORMAL) Blood Gas, Arterial POC (06/15/2024 9:19 AM EST) pH, Arterial 7.31(L) 7.35 - 7.45 06/15/2024 9:21 AM [facility] PCO2, Arterial 36 35 - 45 mmHg 06/15/2024 9:21 AM [facility] PO2, Arterial 94 85 - 104 mmHg 06/15/2024 9:21 AM [facility] Bicarbonate, Arterial 18.0(L) 20.0 - 26.0 mmol/L 06/15/2024 9:21 AM [facility] Base Excess, Arterial -8.2(L) -3.0 - 3.0 mmol/L 06/15/2024 9:21 AM [facility] Hemoglobin, Arterial 12.7(L) 13.7 - 16.5 g/dL 06/15/2024 9:21 AM [facility] Oxyhemoglobin, Arterial 96.0 94.0 - 97.0 % 06/15/2024 9:21 AM [facility] Carboxyhemoglobin , Arterial 0.5 % 06/15/2024 9:21 AM [facility] Comment: Nonsmokers: 0.5-1.5% COHB ?? Smokers: Variable ??but usually less than 10% ?? Toxic: 20-30% COHB ?? Lethal: Greater than 60% COHB Methemoglobin, Arterial 0.3 <=1.5 % 06/15/2024 9:21 AM [facility] Sodium, Arterial 136 135 - 145 mmol/L 06/15/2024 9:21 AM [facility] Potassium, Arterial 4.0 3.5 - 5.0 mmol/L 06/15/2024 9:21 AM [facility] Chloride, Arterial 106 98 - 107 mmol/L 06/15/2024 9:21 AM [facility] Lactate, Arterial 1.7 0.5 - 2.2 mmol/L 06/15/2024 9:21 AM [facility] Flow Rate 2.0 L/min 06/15/2024 9:21 AM [facility] IONIZED CALCIUM, ARTERIAL 1.14(L) 1.15 - 1.33 mmol/L 06/15/2024 9:21 AM [facility] Glucose, Arterial 193 65 - 199 mg/dL 06/15/2024 9:21 AM [facility] Comment:Glucose Concentratio n >=200 mg/dL plus symptoms is consistent with Diabetes Mellitus. Blood ARTERIAL BLOOD / Unknown 06/15/2024 9:19 AM EST 06/15/2024 9:20 AM EST Bobby Loja MD POINT OF CARE TEST O NIKA Performing Organization Address City/[facility]/ZIP Co de Phone Number [facility] [place] [address] * (ABNORMAL) POC, GLUCOSE (06/15/2024 8:37 AM EST) Glucometer, POC 204(H) 65 - 199 mg/dL 06/15/2024 8:37 AM [facility] Comment:Supplemental ranges: <140 mg/dL before meals <180 mg/dL all other times of the day. Blood CAPILLARY BLOOD / Unknown 06/15/2024 8:37 AM EST 06/15/2024 8:37 AM EST Bobby Loja MD POINT OF CARE TEST O NIKA [facility] [place] [address] * POC, GLUCOSE (06/15/2024 7:37 AM EST) Glucometer, POC 199 65 - 199 mg/dL 06/15/2024 7:37 AM EST [facility] Comment:Supplemental ranges: <140 mg/dL before meals <180 mg/dL all other times of the day. Blood CAPILLARY BLOOD / Unknown 06/15/2024 7:37 AM EST 06/15/2024 7:38 AM EST Bobby Loja MD POINT OF CARE TEST O NIKA Performing Organization Address [facility] de Phone Number [facility] [place] [address] * (ABNORMAL) POC, GLUCOSE (06/15/2024 7:01 AM EST) Glucometer, POC 203(H) 65 - 199 mg/dL 06/15/2024 7:01 AM EST [facility] Comment:Supplemental ranges: <140 mg/dL before meals <180 mg/dL all other times of the day. Blood CAPILLARY BLOOD / Unknown 06/15/2024 7:01 AM EST 06/15/2024 7:01 AM EST Bobby Loja MD POINT OF CARE TEST Abimael MAHER Performing Organization Address [facility] de Phone Number [facility] [place] [address] * XR Chest One View (06/15/2024 6:31 AM EST) WORKSTATION ID [id number] RAD Anatomical Region Laterality Modality Chest N/A [...] who have questions please contact the health senior care assistant that requested your imaging first. ? Electronically signed by: Stuart Aponte MD, [facility] ??([phone]), at 06/15/2024 10:38 AM Narrative 06/15/2024 10:38 [...] patients who have questions please contactthe health senior care assistant that requested your imaging first. Electronically signed by: Stuart Aponte MD, [facility]([phone]), at 06/15/2024 10:38 AM Bobby Loja MD IMG DX ORDERABLES * POC, GLUCOSE (06/15/2024 6:02 AM EST) Glucometer, POC 179 65 - 199 mg/dL 06/15/2024 6:02 AM EST [facility] Comment:Supplemental ranges: <140 mg/dL before meals <180 mg/dL all other times of the day. Blood CAPILLARY BLOOD / Unknown 06/15/2024 6:02 AM EST 06/15/2024 6:02 AM EST Bobby Loja MD POINT OF CARE TEST O NIKA Performing Organization Address City/[facility]/ZIP Co de Phone Number [facility] [place] [address] * POC, GLUCOSE (06/15/2024 5:06 AM EST) Glucometer, POC 160 65 - 199 mg/dL 06/15/2024 5:06 AM EST [facility] Comment:Supplemental ranges: <140 mg/dL before meals <180 mg/dL all other times of the day. Blood CAPILLARY BLOOD / Unknown 06/15/2024 5:06 AM EST 06/15/2024 5:06 AM EST Bobby Loja MD POINT OF CARE TEST O NIKA Performing Organization Address City/[facility]/ZIP Co de Phone Number [facility] [place] [address] * POC, GLUCOSE (06/15/2024 4:05 AM EST) Glucometer, POC 160 65 - 199 mg/dL 06/15/2024 4:06 AM EST [facility] Comment:Supplemental ranges: <140 mg/dL before meals <180 mg/dL all other times of the day. Blood CAPILLARY BLOOD / Unknown 06/15/2024 4:05 AM EST 06/15/2024 4:06 AM EST Bobby Loja MD POINT OF CARE TEST O NIKA [facility] [place] [address] * POC, GLUCOSE (06/15/2024 3:07 AM EST) Glucometer, POC 151 65 - 199 mg/dL 06/15/2024 3:07 AM EST [facility] Comment:Supplemental ranges: <140 mg/dL before meals <180 mg/dL all other times of the day. Blood CAPILLARY BLOOD / Unknown 06/15/2024 3:07 AM EST 06/15/2024 3:07 AM EST Bobby Loja MD POINT OF CARE TEST O RDERABLES [facility] [place] [address] * (ABNORMAL) Basic Metabolic Panel (06/15/2024 1:48 AM EST) Glucose 140 65 - 199 mg/dL 06/15/2024 2:38 AM EST [facility] Comment:Glucose Concentratio n >=200 mg/dL plus symptoms is consistent with Diabetes Mellitus. Blood Urea Nitrogen 21(H) 10 - 20 mg/dL 06/15/2024 2:38 AM [facility] Creatinine 1.27 0.80 - 1.50 mg/dL 06/15/2024 2:38 AM [facility] Sodium 140 135 - 145 mMol/L 06/15/2024 2:38 AM [facility] Potassium 4.4 3.5 - 5.0 mMol/L 06/15/2024 2:38 AM [facility] Chloride 108(H) 98 - 107 mMol/L 06/15/2024 2:38 AM [facility] Carbon Dioxide 23 22 - 31 mMol/L 06/15/2024 2:38 AM [facility] Anion Gap 9 5 - 15 mMol/L 06/15/2024 2:38 AM [facility] Calcium 8.3(L) 8.5 - 10.5 mg/dL 06/15/2024 2:38 AM EST [facility] Est Glomerular Filtration Rate - Male 62 mL/min/1. 73 m?? 06/15/2024 2:38 AM [facility] Comment: This [...] AM EST Bobby Loja MD CHEMISTRY ORDERABLES [facility] [place] [address] * (ABNORMAL) CBC (with Diff) (06/15/2024 1:48 AM EST) White Blood Cell 11.71(H) 4.00 - 9.50 x10(3)/mc L 06/15/2024 2:13 AM EST [facility] Red Blood Cell 4.14(L) 4.58 - 5.54 x10(6)/mc L 06/15/2024 2:13 AM EST [facility] Hemoglobin 12.5(L) 13.7 - 16.5 g/dL 06/15/2024 2:13 AM [facility] Hematocrit 38.4(L) 40.5 - 48.5 % 06/15/2024 2:13 AM EST [facility] Mean Cell Volume 92.8 82.9 - 93.1 fL 06/15/2024 2:13 AM [facility] Mean Cell Hemoglobin 30.2 27.5 - 32.1 pg 06/15/2024 2:13 AM [facility] Mean Cell Hemoglobin Concentration 32.6 32.0 - 35.7 g/dL 06/15/2024 2:13 AM [facility] Platelet 101(L) 145 - 357 x10(3)/mc L 06/15/2024 2:13 AM [facility] Mean Platelet Volume 10.0 7.6 - 12.9 fL 06/15/2024 2:13 AM [facility] RDW Standard Deviation 48.8(H) 36.0 - 45.0 fL 06/15/2024 2:13 AM [facility] RDW coefficient of variation 14.2(H) 11.4 - 13.8 % 06/15/2024 2:13 AM [facility] NRBC% auto 0.0 % 06/15/2024 2:13 AM [facility] NRBC Absolute <0.01 <0.01 x10(3)/mc L 06/15/2024 2:13 AM [facility] Neutrophil % 79.7 % 06/15/2024 2:13 AM [facility] Neutrophil Absolute (ANC) - Automated 9.34(H) 1.70 - 6.10 x10(3)/mc L 06/15/2024 2:13 AM [facility] Lymph % 8.0 % 06/15/2024 2:13 AM [facility] Lymph Absolute 0.94 0.90 - 3.20 x10(3)/mc L 06/15/2024 2:13 AM [facility] Monocyte % 11.4 % 06/15/2024 2:13 AM [facility] Monocyte Absolute 1.33(H) 0.30 - 0.90 x10(3)/mc L 06/15/2024 2:13 AM [facility] Eos % 0.2 % 06/15/2024 2:13 AM EST [facility] Eos Absolute <0.04 0.00 - 0.40 x10(3)/mc L 06/15/2024 2:13 AM EST [facility] Basophil % 0.2 % 06/15/2024 2:13 AM EST [facility] Baso Absolute <0.04 0.00 - 0.10 x10(3)/mc L 06/15/2024 2:13 AM EST [facility] Immature Gran % 0.5 % 2:13 AM EST [facility] Immature Gran Absolute 0.06(H) 0.00 - 0.04 x10(3)/mc L 06/15/2024 2:13 AM EST [facility] Blood VENOUS BLOOD SPECIMEN / Unknown Venipuncture / Unknown 06/15/2024 1:48 AM EST 06/15/2024 1:52 AM EST Bobby Loja MD HEMATOLOGY ORDERABLE S [facility] [place] [id number] * (ABNORMAL) Troponin - Single (06/15/2024 1:48 AM EST) Troponin-T, High Sensitivity 667(H) <=22 ng/L 06/15/2024 2:22 AM EST [facility] Comment: This patient's troponin [...] [facility] Test [facility] Troponin - [email or web address] Reference: Fourth [place] Definition of Myocardial Infarction. Journal of the [place] [employer] 2018;72:5030-7200 Blood VENOUS BLOOD SPECIMEN / Unknown Venipuncture / Unknown 06/15/2024 1:48 AM EST 06/15/2024 1:52 AM EST Bobby Loja MD CHEMISTRY ORDERABLES [facility] [place] [address] * (ABNORMAL) Blood Gas, Arterial POC (06/15/2024 1:46 AM EST) pH, Arterial 7.33(L) 7.35 - 7.45 06/15/2024 1:47 AM EST [facility] PCO2, Arterial 40 35 - 45 mmHg 06/15/2024 1:47 AM [facility] PO2, Arterial 131(H) 85 - 104 mmHg 06/15/2024 1:47 AM [facility] Bicarbonate, Arterial 20.7 20.0 - 26.0 mmol/L 06/15/2024 1:47 AM EST [facility] Base Excess, Arterial -5.2(L) -3.0 - 3.0 mmol/L 06/15/2024 1:47 AM EST [facility] Hemoglobin, Arterial 13.4(L) 13.7 - 16.5 g/dL 06/15/2024 1:47 AM [facility] Oxyhemoglobin, Arterial 97.9(H) 94.0 - 97.0 % 06/15/2024 1:47 AM EST [facility] Carboxyhemoglobin , Arterial 0.5 % 06/15/2024 1:47 AM EST [facility] Comment: Nonsmokers: 0.5-1.5% COHB ?? Smokers: Variable ??but usually less than 10% ?? Toxic: 20-30% COHB ?? Lethal: Greater than 60% COHB Methemoglobin, Arterial 0.3 <=1.5 % 06/15/2024 1:47 AM [facility] Sodium, Arterial 139 135 - 145 mmol/L 06/15/2024 1:47 AM [facility] Potassium, Arterial 4.2 3.5 - 5.0 mmol/L 06/15/2024 1:47 AM [facility] Chloride, Arterial 107 98 - 107 mmol/L 06/15/2024 1:47 AM [facility] Lactate, Arterial 1.8 0.5 - 2.2 mmol/L 06/15/2024 1:47 AM [facility] Fraction of Inspired Oxygen 40 % 06/15/2024 1:47 AM [facility] PF Ratio 328 Ratio 06/15/2024 1:47 AM [facility] Comment:PF ratio calculated using the non-temperature corrected pO2 result. IONIZED CALCIUM, ARTERIAL 1.17 1.15 - 1.33 mmol/L 06/15/2024 1:47 AM [facility] Glucose, Arterial 127 65 - 199 mg/dL 06/15/2024 1:47 AM [facility] Comment:Glucose Concentratio n >=200 mg/dL plus symptoms is consistent with Diabetes Mellitus. Blood ARTERIAL BLOOD / Unknown 06/15/2024 1:46 AM EST 06/15/2024 1:47 AM EST Bobby Loja MD POINT OF CARE TEST O RDERABLES [facility] [place] [address] * POC, GLUCOSE (06/15/2024 1:05 AM EST) Glucometer, POC 116 65 - 199 mg/dL 06/15/2024 1:05 AM EST [facility] Comment:Supplemental ranges: <140 mg/dL before meals <180 mg/dL all other times of the day. Blood CAPILLARY BLOOD / Unknown 06/15/2024 1:05 AM EST 06/15/2024 1:05 AM EST Bobby Loja MD POINT OF CARE TEST O RDNICOLLEBLES Performing Organization Address City/[facility]/ZIP Co de Phone Number [facility] [place] [address] * POC, GLUCOSE (06/15/2024 12:16 AM EST) Glucometer, POC 135 65 - 199 mg/dL 06/15/2024 12:16 AM EST [facility] Comment:Supplemental ranges: <140 mg/dL before meals <180 mg/dL all other times of the day. Blood CAPILLARY BLOOD / Unknown 06/15/2024 12:16 AM EST 06/15/2024 12:16 AM EST Bobby Ljoa MD POINT OF CARE TEST O NIKA Performing Organization Address City/[facility]/ZIP Co de Phone Number [facility] [place] [address] * Potassium (06/14/2024 11:28 PM EST) Potassium 4.1 3.5 - 5.0 mMol/L 06/14/2024 11:54 PM EST [facility] Blood VENOUS BLOOD SPECIMEN / Unknown Venipuncture / Unknown 06/14/2024 11:28 PM EST 06/14/2024 11:34 PM EST Bobby Loja MD CHEMISTRY ORDERABLES Performing Organization Address City/[facility]/ZIP Co de Phone Number [facility] [place] [address] * POC, GLUCOSE (06/14/2024 10:58 PM EST) Glucometer, POC 126 65 - 199 mg/dL 06/14/2024 10:59 PM EST [facility] Comment:Supplemental ranges: <140 mg/dL before meals <180 mg/dL all other times of the day. Blood CAPILLARY BLOOD / Unknown 06/14/2024 10:58 PM EST 06/14/2024 10:59 PM EST Narrative Authorizing Provider Result Saranya Loja MD POINT OF CARE TEST O RDERAPIETER Performing Organization Address City/[facility]/ZIP Co de Phone Number [facility] [place] [address] * POC, GLUCOSE (06/14/2024 9:55 PM EST) Glucometer, POC 152 65 - 199 mg/dL 06/14/2024 9:56 PM EST [facility] Comment:Supplemental ranges: <140 mg/dL before meals <180 mg/dL all other times of the day. Blood CAPILLARY BLOOD / Unknown 06/14/2024 9:55 PM EST 06/14/2024 9:56 PM EST Narrative Authorizing Provider Result Saranya Loja MD POINT OF CARE TEST O NIKA Performing Organization Address City/[facility]/ZIP Co de Phone Number [facility] [place] [address] * POC, GLUCOSE (06/14/2024 8:54 PM EST) Glucometer, POC 151 65 - 199 mg/dL 06/14/2024 8:54 PM EST [facility] Comment:Supplemental ranges: <140 mg/dL before meals <180 mg/dL all other times of the day. Blood CAPILLARY BLOOD / Unknown 06/14/2024 8:54 PM EST 06/14/2024 8:54 PM EST Narrative Authorizing Provider Result Saranya Loja MD POINT OF CARE TEST O RDERAPIETER Performing Organization Address City/[facility]/ZIP Co de Phone Number [facility] [place] [address] * POC, GLUCOSE (06/14/2024 7:51 PM EST) Glucometer, POC 169 65 - 199 mg/dL 06/14/2024 7:52 PM EST [facility] Comment:Supplemental ranges: <140 mg/dL before meals <180 mg/dL all other times of the day. Blood CAPILLARY BLOOD / Unknown 06/14/2024 7:51 PM EST 06/14/2024 7:52 PM EST Bobby Loja MD POINT OF CARE TEST O NIKA [facility] [place] [address] * POC, GLUCOSE (06/14/2024 6:49 PM EST) Glucometer, POC 194 65 - 199 mg/dL 06/14/2024 6:50 PM EST [facility] Comment:Supplemental ranges: <140 mg/dL before meals <180 mg/dL all other times of the day. Blood CAPILLARY BLOOD / Unknown 06/14/2024 6:49 PM EST 06/14/2024 6:50 PM EST Bobby Loja MD POINT OF CARE TEST O NIKA [facility] [place] [address] * (ABNORMAL) Hemoglobin (06/14/2024 6:19 PM EST) Hemoglobin 13.1(L) 13.7 - 16.5 g/dL 06/14/2024 7:08 PM EST [facility] Blood VENOUS BLOOD SPECIMEN / Unknown Venipuncture / Unknown 06/14/2024 6:19 PM EST 06/14/2024 6:28 PM EST Bobby Loja MD HEMATOLOGY ORDERABLE S [facility] [place] [address] * Potassium (06/14/2024 6:19 PM EST) [facility] Potassium 3.9 3.5 - 5.0 mMol/L 06/14/2024 6:52 PM EST [facility] Blood VENOUS BLOOD SPECIMEN / Unknown Venipuncture / Unknown 06/14/2024 6:19 PM EST 06/14/2024 6:28 PM EST Bobby Loja MD CHEMISTRY ORDERABLES Performing Organization Address City/[facility]/ZIP Co de Phone Number [facility] [place] [address] * (ABNORMAL) POC, GLUCOSE (06/14/2024 6:03 PM EST) [facility] Glucometer, POC 201(H) 65 - 199 mg/dL 06/14/2024 6:03 PM EST [facility] Comment:Supplemental ranges: <140 mg/dL before meals <180 mg/dL all other times of the day. Blood CAPILLARY BLOOD / Unknown 06/14/2024 6:03 PM EST 06/14/2024 6:03 PM EST Bobby Loja MD POINT OF CARE TEST O RDERABLES Performing Organization Address City/[facility]/ZIP Co de Phone Number [facility] [place] [address] * (ABNORMAL) Blood Gas, Arterial POC (06/14/2024 4:51 PM EST) [facility] pH, Arterial 7.32(L) 7.35 - 7.45 06/14/2024 4:52 PM EST [facility] PCO2, Arterial 46(H) 35 - 45 mmHg 06/14/2024 4:52 PM EST [facility] PO2, Arterial 85 85 - 104 mmHg 06/14/2024 4:52 PM [facility] Bicarbonate, Arterial 23.1 20.0 - 26.0 mmol/L 06/14/2024 4:52 PM EST [facility] Base Excess, Arterial -3.1(L) -3.0 - 3.0 mmol/L 06/14/2024 4:52 PM [facility] Hemoglobin, Arterial 14.3 13.7 - 16.5 g/dL 06/14/2024 4:52 PM [facility] Oxyhemoglobin, Arterial 94.7 94.0 - 97.0 % 06/14/2024 4:52 PM [facility] Carboxyhemoglobin , Arterial 0.6 % 06/14/2024 4:52 PM [facility] Comment: Nonsmokers: 0.5-1.5% COHB ?? Smokers: Variable ??but usually less than 10% ?? Toxic: 20-30% COHB ?? Lethal: Greater than 60% COHB Methemoglobin, Arterial 0.0 <=1.5 % 06/14/2024 4:52 PM [facility] Sodium, Arterial 138 135 - 145 mmol/L 06/14/2024 4:52 PM [facility] Potassium, Arterial 4.1 3.5 - 5.0 mmol/L 06/14/2024 4:52 PM [facility] Chloride, Arterial 106 98 - 107 mmol/L 06/14/2024 4:52 PM [facility] Lactate, Arterial 1.3 0.5 - 2.2 mmol/L 06/14/2024 4:52 PM [facility] Fraction of Inspired Oxygen 40 % 06/14/2024 4:52 PM [facility] PF Ratio 213 Ratio 06/14/2024 4:52 PM [facility] Comment:PF ratio calculated using the non-temperature corrected pO2 result. IONIZED CALCIUM, ARTERIAL 1.16 1.15 - 1.33 mmol/L 06/14/2024 4:52 PM [facility] Glucose, Arterial 192 65 - 199 mg/dL 06/14/2024 4:52 PM [facility] Comment:Glucose Concentratio n >=200 mg/dL plus symptoms is consistent with Diabetes Mellitus. Blood ARTERIAL BLOOD / Unknown 06/14/2024 4:51 PM EST 06/14/2024 4:52 PM EST Bobby Loja MD POINT OF CARE TEST O NIKA Performing Organization Address [facility] Co de Phone Number [facility] [place] [address] * POC, GLUCOSE (06/14/2024 4:00 PM EST) Glucometer, POC 184 65 - 199 mg/dL 06/14/2024 4:01 PM EST [facility] Comment:Supplemental ranges: <140 mg/dL before meals <180 mg/dL all other times of the day. Blood CAPILLARY BLOOD / Unknown 06/14/2024 4:00 PM EST 06/14/2024 4:01 PM EST Bobby Loja MD POINT OF CARE TEST O NIKA Performing Organization Address [facility] Phone Number [facility] [place] [address] * XR Chest One View (06/14/2024 3:05 PM EST) WORKSTATION ID [id number] DH RAD Anatomical Region Laterality Modality Chest [...] who have questions please contact the health senior care assistant that requested your imaging first. ? Electronically signed by: Stuart Aponte MD, [facility] ??([phone]), at 06/14/2024 4:07 PM Narrative 06/14/2024 4:07 [...] patients who have questions please contactthe health senior care assistant that requested your imaging first. Electronically signed by: Stuart Aponte MD, [facility]([phone]), at 06/14/2024 4:07 PM Bobby Loja MD IMG DX ORDERABLES * (ABNORMAL) Blood Gas, Arterial POC (06/14/2024 2:52 PM EST) pH, Arterial 7.28(LLL) 7.35 - 7.45 06/14/2024 2:53 PM EST [facility] PCO2, Arterial 50(H) 35 - 45 mmHg 06/14/2024 2:53 PM [facility] PO2, Arterial 510(H) 85 - 104 mmHg 06/14/2024 2:53 PM [facility] Bicarbonate, Arterial 22.8 20.0 - 26.0 mmol/L 06/14/2024 2:53 PM [facility] Base Excess, Arterial -4.0(L) -3.0 - 3.0 mmol/L 06/14/2024 2:53 PM [facility] Hemoglobin, Arterial 13.8 13.7 - 16.5 g/dL 06/14/2024 2:53 PM [facility] Oxyhemoglobin, Arterial 99.3(H) 94.0 - 97.0 % 06/14/2024 2:53 PM [facility] Carboxyhemoglobin , Arterial 0.6 % 06/14/2024 2:53 PM [facility] Comment: Nonsmokers: 0.5-1.5% COHB ?? Smokers: Variable ??but usually less than 10% ?? Toxic: 20-30% COHB ?? Lethal: Greater than 60% COHB Methemoglobin, Arterial 0.1 <=1.5 % 06/14/2024 2:53 PM [facility] Sodium, Arterial 138 135 - 145 mmol/L 06/14/2024 2:53 PM [facility] Potassium, Arterial 4.2 3.5 - 5.0 mmol/L 06/14/2024 2:53 PM EST [facility] Chloride, Arterial 106 98 - 107 mmol/L 06/14/2024 2:53 PM [facility] Lactate, Arterial 1.1 0.5 - 2.2 mmol/L 06/14/2024 2:53 PM EST [facility] Fraction of Inspired Oxygen 100 % 06/14/2024 2:53 PM EST [facility] PF Ratio 510 Ratio 06/14/2024 2:53 PM [facility] Comment:PF ratio calculated using the non-temperature corrected pO2 result. IONIZED CALCIUM, ARTERIAL 1.15 1.15 - 1.33 mmol/L 06/14/2024 2:53 PM [facility] Glucose, Arterial 169 65 - 199 mg/dL 06/14/2024 2:53 PM [facility] Comment:Glucose Concentratio n >=200 mg/dL plus symptoms is consistent with Diabetes Mellitus. Blood ARTERIAL BLOOD / Unknown 06/14/2024 2:52 PM EST 06/14/2024 2:53 PM EST Bobby Loja MD POINT OF CARE TEST O RDERABLES [facility] [place] [address] * EKG 12 Lead (06/14/2024 2:46 PM EST) Ventricular rate 80 BPM MUSE SYSTEM Atrial Rate 80 BPM MUSE SYSTEM P-R Interval 120 ms MUSE SYSTEM QRS Duration 108 ms MUSE SYSTEM Q-T Interval 454 ms MUSE SYSTEM QTC Calculated (Bezet) 523 ms MUSE SYSTEM Calculated P [place]wick 70 degrees MUSE SYSTEM Calculated R [place] 56 degrees MUSE SYSTEM Calculated T [place] 50 degrees MUSE SYSTEM INTERPRETATION AV dual-paced rhythm Abnormal ECG When compared with ECG of 03-JUN-2024 01:45, Vent. rate has increased BY ??17 BPM Confirmed by MD Marisol, Shaheen ([id number]) on 06/15/2024 1:57:23 PM MUSE SYSTEM 06/14/2024 2:46 PM EST 06/15/2024 1:57 PM EST Bobby Loja MD ECG ORDERABLES MUSE SYSTEM * Prepare RBC (06/14/2024 2:27 PM EST) Status Information Returned [facility] Product Identification RBC [facility] Unit [facility] [id number] [facility] Product Code [id number] [facility] Unit Blood Type OPOS [facility] Specimen Expiration Date [facility] Volulme 350 [facility] Issue Date / Time [facility] Status [facility] Returned [facility] Product Identification RBC [facility] Unit Number [id number] [facility] Product [facility] [id number] [facility] Unit Blood Type OPOS [facility] Specimen Expiration Date [facility] Volulme 350 [facility] Issue Date / Time [facility] Blood 06/14/2024 6:2 5 AM EST Haja Byrnes MD BLOOD BANK PRODUCT O RDERABLES [facility] [place] [place] [address] * (ABNORMAL) Cooximetry, POC (06/14/2024 1:52 PM EST) pO2, Coox 58 mmHg 06/14/2024 1:55 PM EST [facility] Hemoglobin, Coox 12.6(L) 13.7 - 16.5 g/dL 06/14/2024 1:55 PM EST [facility] Oxyhemoglobin, Coox 85.5 % 06/14/2024 1:55 PM EST [facility] Carboxyhemoglo bin, Coox 0.3 % 06/14/2024 1:55 PM EST [facility] Comment: Nonsmokers: 0.5-1.5% COHB ?? Smokers: Variable ??but usually less than 10% ?? Toxic: 20-30% COHB ?? Lethal: Greater than 60% COHB Methemoglobin, Coox 0.6 <=1.5 % 06/14/2024 1:55 PM [facility] Blood (Mixed Venous) 06/14/2024 1:52 PM EST 06/14/2024 1:55 PM EST Haja Byrnes MD POINT OF CARE TEST O RDERABLES [facility] [place] [address] * (ABNORMAL) Blood Gas, Arterial POC (06/14/2024 12:47 PM EST) pH, Arterial 7.33(L) 7.35 - 7.45 06/14/2024 12:48 PM [facility] PCO2, Arterial 46(H) 35 - 45 mmHg 06/14/2024 12:48 PM [facility] PO2, Arterial 358(H) 85 - 104 mmHg 06/14/2024 12:48 PM [facility] Bicarbonate, Arterial 23.8 20.0 - 26.0 mmol/L 06/14/2024 12:48 PM [facility] Base Excess, Arterial -2.1 -3.0 - 3.0 mmol/L 06/14/2024 12:48 PM [facility] Hemoglobin, Arterial 11.7(L) 13.7 - 16.5 g/dL 06/14/2024 12:48 PM [facility] Oxyhemoglobin, Arterial 98.7(H) 94.0 - 97.0 % 06/14/2024 12:48 PM [facility] Carboxyhemoglobin , Arterial 0.3 % 06/14/2024 12:48 PM [facility] Comment: Nonsmokers: 0.5-1.5% COHB ?? Smokers: Variable ??but usually less than 10% ?? Toxic: 20-30% COHB ?? Lethal: Greater than 60% COHB Methemoglobin, Arterial 0.5 <=1.5 % 06/14/2024 12:48 PM EST [facility] Sodium, Arterial 135 135 - 145 mmol/L 06/14/2024 12:48 PM [facility] Potassium, Arterial 5.0 3.5 - 5.0 mmol/L 06/14/2024 12:48 PM [facility] Chloride, Arterial 106 98 - 107 mmol/L 06/14/2024 12:48 PM [facility] Lactate, Arterial 1.4 0.5 - 2.2 mmol/L 06/14/2024 12:48 PM [facility] IONIZED CALCIUM, ARTERIAL 1.09(L) 1.15 - 1.33 mmol/L 06/14/2024 12:48 PM [facility] Glucose, Arterial 157 65 - 199 mg/dL 06/14/2024 12:48 PM [facility] Comment:Glucose Concentratio n >=200 mg/dL plus symptoms is consistent with Diabetes Mellitus. Blood ARTERIAL BLOOD / Unknown 06/14/2024 12:47 PM EST 06/14/2024 12:48 PM EST Haja Byrnes MD POINT OF CARE TEST O RDERABLES [facility] [place] [address] * (ABNORMAL) Cooximetry, POC (06/14/2024 12:42 PM EST) pO2, Coox 71 mmHg 06/14/2024 12:45 PM [facility] Hemoglobin, Coox 11.6(L) 13.7 - 16.5 g/dL 06/14/2024 12:45 PM [facility] Oxyhemoglobin, Coox 91.5 % 06/14/2024 12:45 PM EST [facility] Carboxyhemoglo bin, Coox 0.3 % 06/14/2024 12:45 PM EST [facility] Comment: Nonsmokers: 0.5-1.5% COHB ?? Smokers: Variable ??but usually less than 10% ?? Toxic: 20-30% COHB ?? Lethal: Greater than 60% COHB Methemoglobin, Coox 0.4 <=1.5 % 06/14/2024 12:45 PM EST [facility] Blood (Mixed Venous) 06/14/2024 12:42 PM EST 06/14/2024 12:45 PM EST Haja Byrnes MD POINT OF CARE TEST O RDERABLES [facility] [place] [address] * (ABNORMAL) Platelet count (06/14/2024 12:30 PM EST) Platelet 73(L) 145 - 357 x10(3)/mcL 06/14/2024 12:54 PM EST [facility] Blood ARTERIAL BLOOD / Unknown 06/14/2024 12:30 PM EST Comment:Pre-op diagnosis: CAD Bobby Loja MD HEMATOLOGY ORDERABLE S Performing Organization Address City/[facility]/ZIP Co de Phone Number [facility] [place] [address] * (ABNORMAL) Hemoglobin and Hematocrit, blood (06/14/2024 12:30 PM EST) Hemoglobin 10.9(L) 13.7 - 16.5 g/dL 06/14/2024 12:54 PM EST [facility] Hematocrit 33.5(L) 40.5 - 48.5 % 06/14/2024 12:54 PM EST [facility] Comment:This result has been called to Danielle López by Satya Page on 06/14/2024 12:53:56, and has been read back. Blood ARTERIAL BLOOD / Unknown 06/14/2024 12:30 PM EST 06/14/2024 12:42 PM EST Comment:Pre-op diagnosis: CAD Bobby Loja MD HEMATOLOGY ORDERABLE S Performing Organization Address [facility] Co de Phone Number [facility] [place] [address] * APTT (06/14/2024 12:30 PM EST) Partial Thromboplastin Time 31 25 - 37 sec 06/14/2024 12:57 PM EST [facility] Comment: The PTT is NOT appropriate for heparin monitoring. Use the Anti-Xa level for heparin monitoring (HEP UFH) or LMWH monitoring (HEP LMW). A PTT less than 37 seconds generally indicates adequate hemostasis. Blood ARTERIAL BLOOD / Unknown 06/14/2024 12:30 PM EST 06/14/2024 12:42 PM EST Comment:Pre-op diagnosis: CAD Bobby Loja MD HEMATOLOGY ORDERABLE S Performing Organization Address [facility] Co de Phone Number [facility] [place] [address] * (ABNORMAL) Prothrombin Time (06/14/2024 12:30 PM EST) Prothrombin Time 16.8(H) 9.4 - 12.5 sec 06/14/2024 12:57 PM EST [facility] International Normalization Ratio 1.5 <=4.9 06/14/2024 12:57 PM EST [facility] Comment: An INR < [...] HEMATOLOGY ORDERABLE S Performing Organization Address [facility] Co de Phone Number [facility] [place] [address] * Fibrinogen (06/14/2024 12:30 PM EST) Fibrinogen 211 200 - 393 mg/dL 06/14/2024 12:57 PM EST [facility] Comment: A fibrinogen level >100 mg/dL is adequate for hemostasis in most patients without underlying bleeding disorders. Blood ARTERIAL BLOOD / Unknown 06/14/2024 12:30 PM EST 06/14/2024 12:42 PM EST Comment:Pre-op diagnosis: CAD Bobby Loja MD HEMATOLOGY ORDERABLE S Performing Organization Address [facility] Co de Phone Number [facility] [place] [address] * (ABNORMAL) Blood Gas, Arterial POC (06/14/2024 12:15 PM EST) pH, Arterial 7.38 7.35 - 7.45 06/14/2024 12:16 PM [facility] PCO2, Arterial 40 35 - 45 mmHg 06/14/2024 12:16 PM [facility] Bicarbonate, Arterial 22.9 20.0 - 26.0 mmol/L 06/14/2024 12:16 PM [facility] Base Excess, Arterial -2.3 -3.0 - 3.0 mmol/L 06/14/2024 12:16 PM [facility] Hemoglobin, Arterial 11.4(L) 13.7 - 16.5 g/dL 06/14/2024 12:16 PM [facility] Oxyhemoglobin, Arterial 98.8(H) 94.0 - 97.0 % 06/14/2024 12:16 PM [facility] Carboxyhemoglobin , Arterial 0.3 % 06/14/2024 12:16 PM EST [facility] Comment: Nonsmokers: 0.5-1.5% COHB ?? Smokers: Variable ??but usually less than 10% ?? Toxic: 20-30% COHB ?? Lethal: Greater than 60% COHB Methemoglobin, Arterial 0.6 <=1.5 % 06/14/2024 12:16 PM [facility] Sodium, Arterial 134(L) 135 - 145 mmol/L 06/14/2024 12:16 PM [facility] Potassium, Arterial 5.4(H) 3.5 - 5.0 mmol/L 06/14/2024 12:16 PM [facility] Chloride, Arterial 105 98 - 107 mmol/L 06/14/2024 12:16 PM [facility] Lactate, Arterial 1.3 0.5 - 2.2 mmol/L 06/14/2024 12:16 PM [facility] IONIZED CALCIUM, ARTERIAL 1.08(L) 1.15 - 1.33 mmol/L 06/14/2024 12:16 PM [facility] Glucose, Arterial 161 65 - 199 mg/dL 06/14/2024 12:16 PM [facility] Comment:Glucose Concentratio n >=200 mg/dL plus symptoms is consistent with Diabetes Mellitus. Blood ARTERIAL BLOOD / Unknown 06/14/2024 12:15 PM EST 06/14/2024 12:16 PM EST Haja Byrnes MD POINT OF CARE TEST O RDERABLES [facility] [place] [address] * (ABNORMAL) Blood Gas, Arterial POC (06/14/2024 11:51 AM EST) pH, Arterial 7.40 7.35 - 7.45 06/14/2024 11:52 AM EST [facility] PCO2, Arterial 41 35 - 45 mmHg 06/14/2024 11:52 AM [facility] PO2, Arterial 332(H) 85 - 104 mmHg 06/14/2024 11:52 AM [facility] Bicarbonate, Arterial 24.7 20.0 - 26.0 mmol/L 06/14/2024 11:52 AM [facility] Base Excess, Arterial -0.1 -3.0 - 3.0 mmol/L 06/14/2024 11:52 AM [facility] Hemoglobin, Arterial 11.1(L) 13.7 - 16.5 g/dL 06/14/2024 11:52 AM [facility] Oxyhemoglobin, Arterial 98.7(H) 94.0 - 97.0 % 06/14/2024 11:52 AM [facility] Carboxyhemoglobin , Arterial 0.3 % 06/14/2024 11:52 AM [facility] Comment: Nonsmokers: 0.5-1.5% COHB ?? Smokers: Variable ??but usually less than 10% ?? Toxic: 20-30% COHB ?? Lethal: Greater than 60% COHB Methemoglobin, Arterial 0.4 <=1.5 % 06/14/2024 11:52 AM [facility] Sodium, Arterial 135 135 - 145 mmol/L 06/14/2024 11:52 AM [facility] Potassium, Arterial 5.7(H) 3.5 - 5.0 mmol/L 06/14/2024 11:52 AM [facility] Chloride, Arterial 105 98 - 107 mmol/L 06/14/2024 11:52 AM [facility] Lactate, Arterial 1.2 0.5 - 2.2 mmol/L 06/14/2024 11:52 AM [facility] IONIZED CALCIUM, ARTERIAL 1.10(L) 1.15 - 1.33 mmol/L 06/14/2024 11:52 AM [facility] Glucose, Arterial 148 65 - 199 mg/dL 06/14/2024 11:52 AM [facility] Comment:Glucose Concentratio n >=200 mg/dL plus symptoms is consistent with Diabetes Mellitus. Blood ARTERIAL BLOOD / Unknown 06/14/2024 11:51 AM EST 06/14/2024 11:52 AM EST Haja Byrnes MD POINT OF CARE TEST O RDERABLES [facility] [place] [address] * (ABNORMAL) Blood Gas, Arterial POC (06/14/2024 11:27 AM EST) pH, Arterial 7.38 7.35 - 7.45 06/14/2024 11:28 AM [facility] PCO2, Arterial 37 35 - 45 mmHg 06/14/2024 11:28 AM [facility] PO2, Arterial 348(H) 85 - 104 mmHg 06/14/2024 11:28 AM [facility] Bicarbonate, Arterial 21.1 20.0 - 26.0 mmol/L 06/14/2024 11:28 AM [facility] Base Excess, Arterial -4.1(L) -3.0 - 3.0 mmol/L 06/14/2024 11:28 AM [facility] Hemoglobin, Arterial 11.0(L) 13.7 - 16.5 g/dL 06/14/2024 11:28 AM [facility] Oxyhemoglobin, Arterial 98.7(H) 94.0 - 97.0 % 06/14/2024 11:28 AM [facility] Carboxyhemoglobin , Arterial 0.3 % 06/14/2024 11:28 AM [facility] Comment: Nonsmokers: 0.5-1.5% COHB ?? Smokers: Variable ??but usually less than 10% ?? Toxic: 20-30% COHB ?? Lethal: Greater than 60% COHB Methemoglobin, Arterial 0.4 <=1.5 % 06/14/2024 11:28 AM [facility] Sodium, Arterial 132(L) 135 - 145 mmol/L 06/14/2024 11:28 AM [facility] Potassium, Arterial 5.8(H) 3.5 - 5.0 mmol/L 06/14/2024 11:28 AM [facility] Chloride, Arterial 105 98 - 107 mmol/L 06/14/2024 11:28 AM [facility] Lactate, Arterial 1.1 0.5 - 2.2 mmol/L 06/14/2024 11:28 AM [facility] IONIZED CALCIUM, ARTERIAL 1.03(L) 1.15 - 1.33 mmol/L 06/14/2024 11:28 AM [facility] Glucose, Arterial 147 65 - 199 mg/dL 06/14/2024 11:28 AM [facility] Comment:Glucose Concentratio n >=200 mg/dL plus symptoms is consistent with Diabetes Mellitus. Blood ARTERIAL BLOOD / Unknown 06/14/2024 11:27 AM EST 06/14/2024 11:28 AM EST Haja Byrnes MD POINT OF CARE TEST O RDERABLES [facility] [place] [address] * (ABNORMAL) Scan, Peripheral Blood (06/14/2024 11:23 AM EST) RBC Morphology Abnormal 06/14/2024 11:59 AM [facility] Platelet Estimate Decreased(A) Normal 06/14/2024 11:59 AM [facility] [place] cells 1-5 /HPF 06/14/2024 11:59 AM [facility] Blood ARTERIAL BLOOD / Unknown 06/14/2024 11:23 AM EST 06/14/2024 11:27 AM EST Bobby Loja MD HEMATOLOGY ORDERABLE S [facility] [place] [address] * (ABNORMAL) Platelet count (06/14/2024 11:23 AM EST) Platelet 86(L) 145 - 357 x10(3)/mcL 06/14/2024 11:59 AM EST [facility] Blood ARTERIAL BLOOD / Unknown 06/14/2024 11:23 AM EST Comment:Pre-op diagnosis: CAD Bobby Loja MD HEMATOLOGY ORDERABLE S [facility] [place] [address] * (ABNORMAL) Hemoglobin and Hematocrit, blood (06/14/2024 11:23 AM EST) Hemoglobin 9.8(L) 13.7 - 16.5 g/dL 06/14/2024 11:59 AM EST [facility] Comment:This result has been called to Danielle López by Satya Page on 06/14/2024 11:58:33. Hematocrit 30.5(L) 40.5 - 48.5 % 06/14/2024 11:59 AM EST [facility] Comment:This result has been called to Danielle López by Satya Page on 06/14/2024 11:58:40, and has been read back. Blood ARTERIAL BLOOD / Unknown 06/14/2024 11:23 AM EST 06/14/2024 11:27 AM EST Comment:Pre-op diagnosis: CAD Bobby Loja MD HEMATOLOGY ORDERABLE S [facility] [place] [address] * (ABNORMAL) Blood Gas, Arterial POC (06/14/2024 10:58 AM EST) pH, Arterial 7.38 7.35 - 7.45 06/14/2024 10:59 AM EST [facility] PCO2, Arterial 43 35 - 45 mmHg 06/14/2024 10:59 AM [facility] PO2, Arterial 401(H) 85 - 104 mmHg 06/14/2024 10:59 AM [facility] Bicarbonate, Arterial 24.8 20.0 - 26.0 mmol/L 06/14/2024 10:59 AM [facility] Base Excess, Arterial -0.5 -3.0 - 3.0 mmol/L 06/14/2024 10:59 AM [facility] Hemoglobin, Arterial 11.9(L) 13.7 - 16.5 g/dL 06/14/2024 10:59 AM [facility] Oxyhemoglobin, Arterial 99.0(H) 94.0 - 97.0 % 06/14/2024 10:59 AM [facility] Carboxyhemoglobin , Arterial 0.3 % 06/14/2024 10:59 AM [facility] Comment: Nonsmokers: 0.5-1.5% COHB ?? Smokers: Variable ??but usually less than 10% ?? Toxic: 20-30% COHB ?? Lethal: Greater than 60% COHB Methemoglobin, Arterial 0.3 <=1.5 % 06/14/2024 10:59 AM [facility] Sodium, Arterial 128(L) 135 - 145 mmol/L 06/14/2024 10:59 AM [facility] Potassium, Arterial 6.6(HHH) 3.5 - 5.0 mmol/L 06/14/2024 10:59 AM [facility] Chloride, Arterial 99 98 - 107 mmol/L 06/14/2024 10:59 AM [facility] Lactate, Arterial 1.3 0.5 - 2.2 mmol/L 06/14/2024 10:59 AM [facility] IONIZED CALCIUM, ARTERIAL 1.00(L) 1.15 - 1.33 mmol/L 06/14/2024 10:59 AM [facility] Glucose, Arterial 155 65 - 199 mg/dL 06/14/2024 10:59 AM [facility] Comment:Glucose Concentratio n >=200 mg/dL plus symptoms is consistent with Diabetes Mellitus. Blood ARTERIAL BLOOD / Unknown 06/14/2024 10:58 AM EST 06/14/2024 10:59 AM EST Haja Byrnes MD POINT OF CARE TEST O RDERABLES [facility] [place] [address] * (ABNORMAL) Blood Gas, Arterial POC (06/14/2024 10:26 AM EST) pH, Arterial 7.29(LLL) 7.35 - 7.45 06/14/2024 10:27 AM [facility] PCO2, Arterial 43 35 - 45 mmHg 06/14/2024 10:27 AM [facility] PO2, Arterial 369(H) 85 - 104 mmHg 06/14/2024 10:27 AM [facility] Bicarbonate, Arterial 19.9(L) 20.0 - 26.0 mmol/L 06/14/2024 10:27 AM [facility] Base Excess, Arterial -6.7(L) -3.0 - 3.0 mmol/L 06/14/2024 10:27 AM [facility] Hemoglobin, Arterial 12.6(L) 13.7 - 16.5 g/dL 06/14/2024 10:27 AM [facility] Oxyhemoglobin, Arterial 99.1(H) 94.0 - 97.0 % 06/14/2024 10:27 AM [facility] Carboxyhemoglobin , Arterial 0.1 % 06/14/2024 10:27 AM [facility] Comment: Nonsmokers: 0.5-1.5% COHB ?? Smokers: Variable ??but usually less than 10% ?? Toxic: 20-30% COHB ?? Lethal: Greater than 60% COHB Methemoglobin, Arterial 0.4 <=1.5 % 06/14/2024 10:27 AM [facility] Sodium, Arterial 129(L) 135 - 145 mmol/L 06/14/2024 10:27 AM [facility] Potassium, Arterial 5.0 3.5 - 5.0 mmol/L 06/14/2024 10:27 AM [facility] Chloride, Arterial 99 98 - 107 mmol/L 06/14/2024 10:27 AM [facility] Lactate, Arterial 0.9 0.5 - 2.2 mmol/L 06/14/2024 10:27 AM [facility] IONIZED CALCIUM, ARTERIAL 1.05(L) 1.15 - 1.33 mmol/L 06/14/2024 10:27 AM [facility] Glucose, Arterial 149 65 - 199 mg/dL 06/14/2024 10:27 AM [facility] Comment:Glucose Concentratio n >=200 mg/dL plus symptoms is consistent with Diabetes Mellitus. Blood ARTERIAL BLOOD / Unknown 06/14/2024 10:26 AM EST 06/14/2024 10:27 AM EST Haja Byrnes MD POINT OF CARE TEST O RDERABLES [facility] [place] [address] * (ABNORMAL) Blood Gas, Arterial POC (06/14/2024 10:25 AM EST) pH, Arterial 7.26(LLL) 7.35 - 7.45 06/14/2024 10:26 AM [facility] PCO2, Arterial 48(H) 35 - 45 mmHg 06/14/2024 10:26 AM [facility] Bicarbonate, Arterial 21.2 20.0 - 26.0 mmol/L 06/14/2024 10:26 AM [facility] Base Excess, Arterial -5.8(L) -3.0 - 3.0 mmol/L 06/14/2024 10:26 AM [facility] Hemoglobin, Arterial 12.5(L) 13.7 - 16.5 g/dL 06/14/2024 10:26 AM [facility] Oxyhemoglobin, Arterial 82.3(L) 94.0 - 97.0 % 06/14/2024 10:26 AM [facility] Carboxyhemoglobin , Arterial 0.5 % 06/14/2024 10:26 AM [facility] Comment: Nonsmokers: 0.5-1.5% COHB ?? Smokers: Variable ??but usually less than 10% ?? Toxic: 20-30% COHB ?? Lethal: Greater than 60% COHB Methemoglobin, Arterial 0.5 <=1.5 % 06/14/2024 10:26 AM [facility] Sodium, Arterial 131(L) 135 - 145 mmol/L 06/14/2024 10:26 AM [facility] Potassium, Arterial 4.6 3.5 - 5.0 mmol/L 06/14/2024 10:26 AM [facility] Chloride, Arterial 103 98 - 107 mmol/L 06/14/2024 10:26 AM [facility] Lactate, Arterial 0.8 0.5 - 2.2 mmol/L 06/14/2024 10:26 AM [facility] IONIZED CALCIUM, ARTERIAL 0.91(LLL) 1.15 - 1.33 mmol/L 06/14/2024 10:26 AM [facility] Glucose, Arterial 148 65 - 199 mg/dL 06/14/2024 10:26 AM [facility] Comment:Glucose Concentratio n >=200 mg/dL plus symptoms is consistent with Diabetes Mellitus. Blood ARTERIAL BLOOD / Unknown 06/14/2024 10:25 AM EST 06/14/2024 10:26 AM EST Haja Byrnes MD POINT OF CARE TEST O RDERABLES [facility] [place] [address] * Surgical Pathology (06/14/2024 9:53 AM EST) Case Report Surgical Pathology Report ? Case: [id number] ? Authorizing Provider: ??Bobby Loja MD ? Collected: ? 06/14/2024 0953 ? Ordering Location: ? Main Operating Room [facility] ?? Received: ?06/14/2024 1413 ? [facility] ? Pathologist: ? Sandra Salas MD ? Specimens: ?? A) - Soft Tissue Mass, mediastinal mass ? B) - Heart, Atrial Appendage, Left ? 06/18/2024 10:18 AM [facility] Final Diagnosis A. Soft Tissue Mass, Mediastinal Mass, Excision: - Atrophic thymic tissue B. Heart, Atrial Appendage, Left, Excision: - Mild myocyte hypertrophy 06/18/2024 10:18 AM [facility] Clinical Information A. Soft Tissue Mass, mediastinal mass Soft tissue mass Mediastinal mass B. Heart, Atrial Appendage, Left, *Other - as specified in Clinical Information MARIALUISA 06/18/2024 10:18 AM [facility] Gross Description A. Soft Tissue Mass, mediastinal mass. A - Labeled/Fixative : Mediastinal mass, fresh. Quantity/Size: Single, 7.2 x 5.3 x 1.2 cm. Tissue Description: Unoriented, intact portion of soft, rodriguez-yellow, lobulated tissue. The cut surface is homogenously pale-rodriguez, yellow and lobulated. No lesions or nodules are identified. Inking: External surface inked black Sections/Process ing: Freight [employer]cker sections in 4 cassettes labeled A1-A4. cmk B. Heart, Atrial Appendage, Left, . B - Labeled/Fixative : Heart, atrial appendage, left, fresh. Quantity/Size: Single, 3.3 x 1.5 x 0.8 cm. Tissue Description: Portion of heart tissue consisting of rodriguez-white, semitranslucent, smooth endocardium with rodriguez-brown muscular myocardium and thin translucent epicardium with adherent adipose tissue. No areas of discoloration identified. Sections/Process ing: Freight Trucker sections in 1 cassette labeled B1. cmk 06/18/2024 10:18 AM [facility] Result Note Routine 06/18/2024 10:18 AM [facility] Tissue SOFT TISSUE MASS / Unknown 06/14/2024 9:53 AM EST 06/14/2024 2:13 PM EST Comment:Mediastinal mass Tissue specimen (specimen) LEFT ATRIAL APPENDAGE ABSENT / Unknown 06/14/2024 10:54 AM EST 06/14/2024 2:13 PM EST Comment:MARIALUISA Bobby Loja MD PATHOLOGY/CYTOLOGY O RDERABLES [facility] [place] [address] * Cooximetry, POC (06/14/2024 9:00 AM EST) pO2, Coox 57 mmHg 06/14/2024 9:04 AM [facility] PO2 Corrected, COOX 50 mmHg 06/14/2024 9:04 AM [facility] Hemoglobin, Coox 14.3 13.7 - 16.5 g/dL 06/14/2024 9:04 AM [facility] Oxyhemoglobin, Coox 86.2 % 06/14/2024 9:04 AM [facility] Carboxyhemoglobi n, Coox 0.3 % 06/14/2024 9:04 AM EST [facility] Comment: Nonsmokers: 0.5-1.5% COHB ?? Smokers: Variable ??but usually less than 10% ?? Toxic: 20-30% COHB ?? Lethal: Greater than 60% COHB Methemoglobin, Coox 0.3 <=1.5 % 06/14/2024 9:04 AM EST [facility] Temperature Coox 35.2 C 06/14/20 24 9:04 AM EST [facility] Blood (Mixed Venous) 06/14/2024 9:00 AM EST 06/14/2024 9:04 AM EST Haja Byrnes MD POINT OF CARE TEST O RDERABLES [facility] [place] [address] * (ABNORMAL) Blood Gas, Arterial POC (06/14/2024 8:39 AM [facility] pH, Arterial 7.37 7.35 - 7.45 06/14/2024 8:40 AM [facility] PCO2, Arterial 42 35 - 45 mmHg 06/14/2024 8:40 AM [facility] PO2, Arterial 341(H) 85 - 104 mmHg 06/14/2024 8:40 AM [facility] Bicarbonate, Arterial 23.7 20.0 - 26.0 mmol/L 06/14/2024 8:40 AM [facility] Base Excess, Arterial -1.6 -3.0 - 3.0 mmol/L 06/14/2024 8:40 AM [facility] Hemoglobin, Arterial 15.2 13.7 - 16.5 g/dL 06/14/2024 8:40 AM [facility] Oxyhemoglobin, Arterial 99.2(H) 94.0 - 97.0 % 06/14/2024 8:40 AM [facility] Carboxyhemoglobin , Arterial 0.1 % 06/14/2024 8:40 AM [facility] Comment: Nonsmokers: 0.5-1.5% COHB ?? Smokers: Variable ??but usually less than 10% ?? Toxic: 20-30% COHB ?? Lethal: Greater than 60% COHB Methemoglobin, Arterial 0.3 <=1.5 % 06/14/2024 8:40 AM [facility] Sodium, Arterial 136 135 - 145 mmol/L 06/14/2024 8:40 AM [facility] Potassium, Arterial 4.2 3.5 - 5.0 mmol/L 06/14/2024 8:40 AM [facility] Chloride, Arterial 102 98 - 107 mmol/L 06/14/2024 8:40 AM [facility] Lactate, Arterial 0.9 0.5 - 2.2 mmol/L 06/14/2024 8:40 AM [facility] IONIZED CALCIUM, ARTERIAL 1.17 1.15 - 1.33 mmol/L 06/14/2024 8:40 AM EST [facility] Glucose, Arterial 121 65 - 199 mg/dL 06/14/2024 8:40 AM EST [facility] Comment:Glucose Concentratio n >=200 mg/dL plus symptoms is consistent with Diabetes Mellitus. Blood ARTERIAL BLOOD / Unknown 06/14/2024 8:39 AM EST 06/14/2024 8:40 AM EST Haja Byrnes MD POINT OF CARE TEST O RDERABLES [facility] [place] [address] * Transesophageal Echo/OR (06/14/2024 7:20 AM EST) Anatomical Region Laterality Modality Cardiac Other 06/14/2024 7:20 AM EST Narrative 06/14/2024 4:36 PM EST Version: 2 Study ID: [id number] [address] [place] [address] ?OR Transesophageal Echo Report Name: TYSON GEORGE [...] of this mass after consultation with other overlock operator experts and the decision was made by [...] MD - 06/14/2024 Version: 2 Study ID: [id number] [address] [place] [id number] ORTransesophageal Echo Report Name: GEORGE MEHTA Study Date: 06/14/2024,7: 20 AM Patient Location:^OH16^A : 1955 Age: 69 Years Gender: Male [...] of this mass after consultation with other overlock operator experts and thedecision was made by surgeon [...] - 199 mg/dL 06/14/2024 7:12 AM EST [facility] Comment:Supplemental ranges: <140 mg/dL before meals <180 mg/dL all other times of the day. Blood CAPILLARY BLOOD / Unknown 06/14/2024 7:11 AM EST 06/14/2024 7:12 AM EST Haja Byrnes MD POINT OF CARE TEST O NIKA Performing Organization Address City/[facility]/ZIP Co de Phone Number [facility] [place] [address] * POC, GLUCOSE (06/14/2024 4:30 AM EST) Glucometer, POC 85 65 - 199 mg/dL 06/14/2024 4:30 AM EST [facility] Comment:Supplemental ranges: <140 mg/dL before meals <180 mg/dL all other times of the day. Blood CAPILLARY BLOOD / Unknown 06/14/2024 4:30 AM EST 06/14/2024 4:30 AM EST Haja Byrnes MD POINT OF CARE TEST O NIKA Performing Organization Address City/[facility]/ZIP Co de Phone Number [facility] [place] [address] * (ABNORMAL) Heparin (unfractionated) Level (06/14/2024 12:12 AM EST) UF Heparin 1.02(HH[facility]) IU/mL 06/14/2024 12:46 AM [facility] Comment: Heparin (anti-Xa) levels should [...] EST Shahnaz Scanlon MD HEMATOLOGY ORDERABLE S [facility] [place] [address] * (ABNORMAL) CBC (with Diff) (06/14/2024 12:12 AM EST) White Blood Cell 10.51(H) 4.00 - 9.50 x10(3)/mc L 06/14/2024 12:38 AM [facility] Red Blood Cell 4.99 4.58 - 5.54 x10(6)/mc L 06/14/2024 12:38 AM [facility] Hemoglobin 14.9 13.7 - 16.5 g/dL 06/14/2024 12:38 AM [facility] Hematocrit 45.9 40.5 - 48.5 % 06/14/2024 12:38 AM [facility] Mean Cell Volume 92.0 82.9 - 93.1 fL 06/14/2024 12:38 AM [facility] Mean Cell Hemoglobin 29.9 27.5 - 32.1 pg 06/14/2024 12:38 AM [facility] Mean Cell Hemoglobin Concentration 32.5 32.0 - 35.7 g/dL 06/14/2024 12:38 AM [facility] Platelet 162 145 - 357 x10(3)/mc L 06/14/2024 12:38 AM [facility] Mean Platelet Volume 10.1 7.6 - 12.9 fL 06/14/2024 12:38 AM [facility] RDW Standard Deviation 46.9(H) 36.0 - 45.0 fL 06/14/2024 12:38 AM [facility] RDW coefficient of variation 13.8 11.4 - 13.8 % 06/14/2024 12:38 AM [facility] NRBC% auto 0.0 % 06/14/2024 12:38 AM [facility] NRBC Absolute <0.01 <0.01 x10(3)/mc L 06/14/2024 12:38 AM [facility] Neutrophil % 56.7 % 06/14/2024 12:38 AM [facility] Neutrophil Absolute (ANC) - Automated 5.96 1.70 - 6.10 x10(3)/mc L 06/14/2024 12:38 AM [facility] Lymph % 26.8 % 06/14/2024 12:38 AM [facility] Lymph Absolute 2.82 0.90 - 3.20 x10(3)/mc L 06/14/2024 12:38 AM [facility] Monocyte % 11.2 % 06/14/2024 12:38 AM [facility] Monocyte Absolute 1.18(H) 0.30 - 0.90 x10(3)/mc L 06/14/2024 12:38 AM [facility] Eos % 3.9 % 06/14/2024 12:38 AM [facility] Eos Absolute 0.41(H) 0.00 - 0.40 x10(3)/mc L 06/14/2024 12:38 AM EST [facility] Basophil % 0.8 % 06/14/2024 12:38 AM EST [facility] Baso Absolute 0.08 0.00 - 0.10 x10(3)/mc L 06/14/2024 12:38 AM EST [facility] Immature Gran % 0.6 % 12:38 AM EST [facility] Immature Gran Absolute 0.06(H) 0.00 - 0.04 x10(3)/mc L 06/14/2024 12:38 AM EST [facility] Blood VENOUS BLOOD SPECIMEN / Unknown Venipuncture / Unknown 06/14/2024 12:12 AM EST 06/14/2024 12:29 AM EST Shahnaz Scanlon MD HEMATOLOGY ORDERABLE S [facility] [place] [address] * Magnesium (06/14/2024 12:12 AM EST) Magnesium 0.74 0.69 - 1.07 mMol/L 06/14/2024 12:57 AM EST [facility] Blood VENOUS BLOOD SPECIMEN / Unknown Venipuncture / Unknown 06/14/2024 12:12 AM EST 06/14/2024 12:29 AM EST Shahnaz Scanlon MD CHEMISTRY ORDERABLES [facility] [place] [address] * (ABNORMAL) Basic Metabolic Panel (06/14/2024 12:12 AM EST) Glucose 97 65 - 199 mg/dL 06/14/2024 12:57 AM EST [facility] Comment:Glucose Concentratio n >=200 mg/dL plus symptoms is consistent with Diabetes Mellitus. Blood Urea Nitrogen 25(H) 10 - 20 mg/dL 06/14/2024 12:57 AM [facility] Creatinine 1.14 0.80 - 1.50 mg/dL 06/14/2024 12:57 AM [facility] Sodium 135 135 - 145 mMol/L 06/14/2024 12:57 AM [facility] Potassium 4.1 3.5 - 5.0 mMol/L 06/14/2024 12:57 AM [facility] Chloride 100 98 - 107 mMol/L 06/14/2024 12:57 AM [facility] Carbon Dioxide 25 22 - 31 mMol/L 06/14/2024 12:57 AM [facility] Anion Gap 10 5 - 15 mMol/L 06/14/2024 12:57 AM [facility] Calcium 9.5 8.5 - 10.5 mg/dL 06/14/2024 12:57 AM [facility] Est Glomerular Filtration Rate - Male 70 mL/min/1. 73 m?? 06/14/2024 12:57 AM [facility] Comment: This [...] AM EST Shahnaz Scanlon MD CHEMISTRY ORDERABLES [facility] [place] [address] * Scan Doc: Implantable Devices (06/14/2024 12:00 AM EST) Narrative 06/14/2024 12:00 AM EST Ordered by an unspecified provider. Scanning Provider MEDIA MGR SCAN EXT O RDR/RSLT * POC, GLUCOSE (06/13/2024 11:12 PM EST) Glucometer, POC 104 65 - 199 mg/dL 06/13/2024 11:13 PM EST [facility] Comment:Supplemental ranges: <140 mg/dL before meals <180 mg/dL all other times of the day. Blood CAPILLARY BLOOD / Unknown 06/13/2024 11:12 PM EST 06/13/2024 11:13 PM EST Haja Byrnes MD POINT OF CARE TEST O NIKA Performing Organization Address City/[facility]/ZIP Co de Phone Number [facility] [place] [address] * (ABNORMAL) POC, GLUCOSE (06/13/2024 8:03 PM EST) Glucometer, POC 206(H) 65 - 199 mg/dL 06/13/2024 8:03 PM EST [facility] Comment:Supplemental ranges: <140 mg/dL before meals <180 mg/dL all other times of the day. Blood CAPILLARY BLOOD / Unknown 06/13/2024 8:03 PM EST 06/13/2024 8:03 PM EST Haja Byrnes MD POINT OF CARE TEST O NIKA Performing Organization Address City/[facility]/ZIP Co de Phone Number [facility] [place] [address] * Heparin (unfractionated) Level (06/13/2024 4:11 PM EST) UF Heparin 0.76 IU/mL 06/13/2024 4:24 PM EST [facility] Comment: Heparin (anti-Xa) levels [...] Organization Address City/[facility]/ZIP Co de Phone Number [facility] [place] [address] * ABORH RECHECK (06/13/2024 4:11 PM EST) [facility] ABORH Recheck O POSITIVE 06/13/2024 4:50 PM EST [facility] Blood VENOUS BLOOD SPECIMEN / Unknown Venipuncture / Unknown 06/13/2024 4:11 PM EST 06/13/2024 4:19 PM EST Haja Byrnes MD BLOOD BANK LAB ORDER EUSEBIA Performing Organization Address City/[facility] Co de Phone Number [facility] [place] [place] [address] * (ABNORMAL) POC, GLUCOSE (06/13/2024 4:09 PM EST) [facility] Glucometer, POC 216(H) 65 - 199 mg/dL 06/13/2024 4:10 PM EST [facility] Comment:Supplemental ranges: <140 mg/dL before meals <180 mg/dL all other times of the day. Blood CAPILLARY BLOOD / Unknown 06/13/2024 4:09 PM EST 06/13/2024 4:10 PM EST Haja Byrnes MD POINT OF CARE TEST O RDERABLES [facility] [place] [address] * Type and screen ([facility]/CGP/RAFITA) (06/13/2024 11:53 AM EST) Pathologist [facility] ABORH Type O POSITIVE 06/13/2024 1:16 PM EST [facility] PATIENT HISTORY Not Found 06/13/2024 1:16 PM EST [facility] Expires at [id number] on: 06/16/2024 06/13/2024 1:16 PM EST [facility] ANTIBODY SCREEN AUTOMATED Negative 06/13/2024 1:16 PM EST [facility] T&S only valid at [facility] 06/13/2024 1:16 PM EST [facility] Blood VENOUS BLOOD SPECIMEN / Unknown Venipuncture / Unknown 06/13/2024 11:53 AM EST 06/13/2024 11:56 AM EST Narrative [facility] - 06/13/2024 1:16 PM EST This Type and Screen result is only valid at the [facility] Haja Byrnes MD BLOOD BANK LAB ORDER EUSEBIA Performing Organization Address City/[facility]/ZIP Co de Phone Number [facility] [place] [address] * POC, GLUCOSE (06/13/2024 11:50 AM EST) [facility] Glucometer, POC 178 65 - 199 mg/dL 06/13/2024 11:51 AM EST [facility] Comment:Supplemental ranges: <140 mg/dL before meals <180 mg/dL all other times of the day. Blood CAPILLARY BLOOD / Unknown 06/13/2024 11:50 AM EST 06/13/2024 11:51 AM EST Haja Byrnes MD POINT OF CARE TEST O RDERABLES [facility] [place] [address] * XR Chest One View (06/13/2024 10:35 AM EST) WORKSTATION ID [id number] RAD Anatomical Region Laterality Modality Chest N/A [...] who have questions please contact the health senior care assistant that requested your imaging first. ? Electronically signed by: Jyothi Simon MD, [facility] ([phone]), at 06/13/2024 10:43 AM Narrative 06/13/2024 10:43 [...] patients who have questions please contactthe health senior care assistant that requested your imaging first. Haja Byrnes MD IMG DX ORDERABLES * CARDIAC CATHETERIZATION (06/13/2024 9:02 AM EST) Anatomical Region Laterality Modality Other Narrative 06/15/2024 9:07 AM EST ?[facility] ? Cardiac Catheterization/Intervention Report ? Patient Name: Tyson, George L. ? Procedure Date: 06/13/2024 ? A #: [id number] ? Primary Physician: Nuha Shen I ? Case #: [id number] ? File Name: [id number] ? Catheterization Order Number: [id number] ? [facility] ? Final Report [place], [place] ? Patient Name: ? George L. Tyson ? ID#: ?[id number] ? : ?1955 ? Procedure Date: ? June 13, 2024 ?Case #: ? [id number] ? Room: ? 6 ? Case Physician: [...] as ASA Class IV. The [facility] clinical frailty scale is 5: ?Mildly [...] was Urgent. The indication for ?the [employer] visit is ACS greater than 24 hrs [...] vascular ?ultrasound and IABP insertion in [employer]. ? Nuha Shen, M.D. ? Electronically Signed by: Nuha Shen, M.D. ? Report Finalized: 06/15/2024 ??08:59 ? Procedure Note Nuha Shen MD - 06/15/2024 [facility] Cardiac Catheterization/Intervention Report Patient Name: George Mehta Procedure Date: 06/13/2024 A #: [id number] Primary Physician: Nuha Shen I Case #: [id number] File Name: [id number] Catheterization Order Number: [id number] [facility] FinalReport [place], [place] Patient Name: George Mehta ID#:[id number] :1955 Procedure Date: June 13, 2024 Case [...] as ASA Class IV. The [facility] clinical frailty scale is5: Mildly Frail. [...] procedure was Urgent. 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 Nuha Shne M.D. Electronically Signed by: Nuha Shen M.D. Report Finalized: 06/15/2024 08:59 Nuha Rojo MD CARDIAC CATH ORDERA BLES * Potassium (06/13/2024 7:48 AM EST) [facility] Potassium 4.5 3.5 - 5.0 mMol/L 06/13/2024 8:28 AM EST [facility] Blood VENOUS BLOOD SPECIMEN / Unknown Venipuncture / Unknown 06/13/2024 7:48 AM EST 06/13/2024 7:55 AM EST Shahnaz Scanlon MD CHEMISTRY ORDERABLES Performing Organization Address City/[facility]/ZIP Co de Phone Number [facility] [place] [address] * POC, GLUCOSE (06/13/2024 7:41 AM EST) Glucometer, POC 126 65 - 199 mg/dL 06/13/2024 7:41 AM EST [facility] Comment:Supplemental ranges: <140 mg/dL before meals <180 mg/dL all other times of the day. Blood CAPILLARY BLOOD / Unknown 06/13/2024 7:41 AM EST 06/13/2024 7:41 AM EST Ethel Carrillo MD POINT OF CARE TEST O RDERABLES Performing Organization Address City/[facility]/ZIP Co de Phone Number [facility] [place] [address] * POC, GLUCOSE (06/13/2024 3:25 AM EST) Glucometer, POC 99 65 - 199 mg/dL 06/13/2024 3:25 AM EST [facility] Comment:Supplemental ranges: <140 mg/dL before meals <180 mg/dL all other times of the day. Blood CAPILLARY BLOOD / Unknown 06/13/2024 3:25 AM EST 06/13/2024 3:25 AM EST Ethel Carrillo MD POINT OF CARE TEST O RDERABLES Performing Organization Address [facility] de Phone Number [facility] [place] [address] * Heparin (unfractionated) Level (06/13/2024 2:26 AM EST) Pathologist [facility] UF Heparin 0.60 IU/mL 06/13/2024 3:32 AM EST [facility] Comment: Heparin (anti-Xa) levels [...] Organization Address City/[facility]/ZIP Co de Phone Number [facility] [place] [address] * (ABNORMAL) CBC (with Diff) (06/13/2024 2:26 AM EST) White Blood Cell 9.98(H) 4.00 - 9.50 x10(3)/mc L 06/13/2024 2:41 AM [facility] Red Blood Cell 5.11 4.58 - 5.54 x10(6)/mc L 06/13/2024 2:41 AM [facility] Hemoglobin 15.3 13.7 - 16.5 g/dL 06/13/2024 2:41 AM [facility] Hematocrit 47.1 40.5 - 48.5 % 06/13/2024 2:41 AM [facility] Mean Cell Volume 92.2 82.9 - 93.1 fL 06/13/2024 2:41 AM [facility] Mean Cell Hemoglobin 29.9 27.5 - 32.1 pg 06/13/2024 2:41 AM [facility] Mean Cell Hemoglobin Concentration 32.5 32.0 - 35.7 g/dL 06/13/2024 2:41 AM [facility] Platelet 194 145 - 357 x10(3)/mc L 06/13/2024 2:41 AM [facility] Mean Platelet Volume 9.7 7.6 - 12.9 fL 06/13/2024 2:41 AM [facility] RDW Standard Deviation 47.5(H) 36.0 - 45.0 fL 06/13/2024 2:41 AM [facility] RDW coefficient of variation 13.8 11.4 - 13.8 % 06/13/2024 2:41 AM [facility] NRBC% auto 0.0 % 06/13/2024 2:41 AM [facility] NRBC Absolute <0.01 <0.01 x10(3)/mc L 06/13/2024 2:41 AM [facility] Neutrophil % 48.8 % 06/13/2024 2:41 AM [facility] Neutrophil Absolute (ANC) - Automated 4.87 1.70 - 6.10 x10(3)/mc L 06/13/2024 2:41 AM [facility] Lymph % 35.3 % 06/13/2024 2:41 AM [facility] Lymph Absolute 3.52(H) 0.90 - 3.20 x10(3)/mc L 06/13/2024 2:41 AM [facility] Monocyte % 10.1 % 06/13/2024 2:41 AM [facility] Monocyte Absolute 1.01(H) 0.30 - 0.90 x10(3)/mc L 06/13/2024 2:41 AM [facility] Eos % 4.4 % 06/13/2024 2:41 AM [facility] Eos Absolute 0.44(H) 0.00 - 0.40 x10(3)/mc L 06/13/2024 2:41 AM [facility] Basophil % 0.9 % 06/13/2024 2:41 AM [facility] Baso Absolute 0.09 0.00 - 0.10 x10(3)/mc L 06/13/2024 2:41 AM [facility] Immature Gran % 0.5 % 2:41 AM [facility] Immature Gran Absolute 0.05(H) 0.00 - 0.04 x10(3)/mc L 06/13/2024 2:41 AM [facility] Blood VENOUS BLOOD SPECIMEN / Unknown Venipuncture / Unknown 06/13/2024 2:26 AM EST 06/13/2024 2:32 AM EST Shahnaz Scanlon MD HEMATOLOGY ORDERABLE S [facility] [place] [address] * Magnesium (06/13/2024 2:26 AM EST) Magnesium 0.78 0.69 - 1.07 mMol/L 06/13/2024 2:58 AM [facility] Blood VENOUS BLOOD SPECIMEN / Unknown Venipuncture / Unknown 06/13/2024 2:26 AM EST 06/13/2024 2:31 AM EST Shahnaz Scanlon MD CHEMISTRY ORDERABLES [facility] [place] [address] * (ABNORMAL) Basic Metabolic Panel (06/13/2024 2:26 AM EST) Glucose 121 65 - 199 mg/dL 06/13/2024 2:58 AM [facility] Comment:Glucose Concentratio n >=200 mg/dL plus symptoms is consistent with Diabetes Mellitus. Blood Urea Nitrogen 21(H) 10 - 20 mg/dL 06/13/2024 2:58 AM [facility] Creatinine 1.07 0.80 - 1.50 mg/dL 06/13/2024 2:58 AM [facility] Sodium 136 135 - 145 mMol/L 06/13/2024 2:58 AM [facility] Potassium 3.9 3.5 - 5.0 mMol/L 06/13/2024 2:58 AM [facility] Chloride 99 98 - 107 mMol/L 06/13/2024 2:58 AM [facility] Carbon Dioxide 27 22 - 31 mMol/L 06/13/2024 2:58 AM [facility] Anion Gap 10 5 - 15 mMol/L 06/13/2024 2:58 AM [facility] Calcium 9.7 8.5 - 10.5 mg/dL 06/13/2024 2:58 AM [facility] Est Glomerular Filtration Rate - Male 76 mL/min/1. 73 m?? 06/13/2024 2:58 AM EST [facility] Comment: This patient's estimated [...] Organization Address City/[facility]/ZIP Co de Phone Number [facility] [place] [address] * POC, GLUCOSE (06/12/2024 11:53 PM EST) Glucometer, POC 141 65 - 199 mg/dL 06/12/2024 11:54 PM EST [facility] Comment:Supplemental ranges: <140 mg/dL before meals <180 mg/dL all other times of the day. Blood CAPILLARY BLOOD / Unknown 06/12/2024 11:53 PM EST 06/12/2024 11:54 PM EST Ethel Carrillo MD POINT OF CARE TEST O RDERABLES [facility] [place] [address] * POC, GLUCOSE (06/12/2024 7:32 PM EST) Glucometer, POC 158 65 - 199 mg/dL 06/12/2024 7:32 PM EST [facility] Comment:Supplemental ranges: <140 mg/dL before meals <180 mg/dL all other times of the day. Blood CAPILLARY BLOOD / Unknown 06/12/2024 7:32 PM EST 06/12/2024 7:32 PM EST Ethel Carrillo MD POINT OF CARE TEST O NIKA Performing Organization Address City/[facility]/ZIP Co de Phone Number [facility] [place] [address] * POC, GLUCOSE (06/12/2024 3:41 PM EST) Glucometer, POC 113 65 - 199 mg/dL 06/12/2024 3:41 PM EST [facility] Comment:Supplemental ranges: <140 mg/dL before meals <180 mg/dL all other times of the day. Blood CAPILLARY BLOOD / Unknown 06/12/2024 3:41 PM EST 06/12/2024 3:41 PM EST Ethel Carrillo MD POINT OF CARE TEST Abimael MAHER Performing Organization Address [facility]/ZIP Co de Phone Number [facility] [place] [address] * Potassium (06/12/2024 2:19 PM EST) [facility] Potassium 4.5 3.5 - 5.0 mMol/L 06/12/2024 2:45 PM EST [facility] Blood VENOUS BLOOD SPECIMEN / Unknown Venipuncture / Unknown 06/12/2024 2:19 PM EST 06/12/2024 2:23 PM EST Shahnaz Scanlon MD CHEMISTRY ORDERABLES Performing Organization Address City/[facility]/ZIP Co de Phone Number [facility] [place] [address] * (ABNORMAL) POC, GLUCOSE (06/12/2024 11:21 AM EST) Glucometer, POC 207(H) 65 - 199 mg/dL 06/12/2024 11:21 AM EST [facility] Comment:Supplemental ranges: <140 mg/dL before meals <180 mg/dL all other times of the day. Blood CAPILLARY BLOOD / Unknown 06/12/2024 11:21 AM EST 06/12/2024 11:22 AM EST Ethel Carrillo MD POINT OF CARE TEST O NIKA Performing Organization Address City/[facility]/ZIP Co de Phone Number [facility] [place] [address] * POC, GLUCOSE (06/12/2024 8:00 AM EST) Glucometer, POC 169 65 - 199 mg/dL 06/12/2024 8:01 AM EST [facility] Comment:Supplemental ranges: <140 mg/dL before meals <180 mg/dL all other times of the day. Blood CAPILLARY BLOOD / Unknown 06/12/2024 8:00 AM EST 06/12/2024 8:01 AM EST Ethel Carrillo MD POINT OF CARE TEST O NIKA Performing Organization Address City/[facility]/ZIP Co de Phone Number [facility] [place] [address] * POC, GLUCOSE (06/12/2024 4:25 AM EST) Glucometer, POC 132 65 - 199 mg/dL 06/12/2024 4:26 AM EST [facility] Comment:Supplemental ranges: <140 mg/dL before meals <180 mg/dL all other times of the day. Blood CAPILLARY BLOOD / Unknown 06/12/2024 4:25 AM EST 06/12/2024 4:26 AM EST Ethel Carrillo MD POINT OF CARE TEST O NIKA [facility] [place] [address] * Heparin (unfractionated) Level (06/12/2024 3:03 AM EST) UF Heparin 0.55 IU/mL 06/12/2024 3:44 AM EST [facility] Comment: Heparin (anti-Xa) levels [...] City/State/[facility] Co de Phone Number [facility] [place] [address] * (ABNORMAL) CBC (with Diff) (06/12/2024 3:03 AM EST) Pathologist [facility] White Blood Cell 9.69(H) 4.00 - 9.50 x10(3)/mc L 06/12/2024 3:36 AM EST [facility] Red Blood Cell 5.05 4.58 - 5.54 x10(6)/mc L 06/12/2024 3:36 AM EST [facility] Hemoglobin 15.2 13.7 - 16.5 g/dL 06/12/2024 3:36 AM [facility] Hematocrit 46.6 40.5 - 48.5 % 06/12/2024 3:36 AM [facility] Mean Cell Volume 92.3 82.9 - 93.1 fL 06/12/2024 3:36 AM [facility] Mean Cell Hemoglobin 30.1 27.5 - 32.1 pg 06/12/2024 3:36 AM [facility] Mean Cell Hemoglobin Concentration 32.6 32.0 - 35.7 g/dL 06/12/2024 3:36 AM [facility] Platelet 194 145 - 357 x10(3)/mc L 06/12/2024 3:36 AM [facility] Mean Platelet Volume 10.1 7.6 - 12.9 fL 06/12/2024 3:36 AM [facility] RDW Standard Deviation 47.7(H) 36.0 - 45.0 fL 06/12/2024 3:36 AM [facility] RDW coefficient of variation 14.0(H) 11.4 - 13.8 % 06/12/2024 3:36 AM [facility] NRBC% auto 0.0 % 06/12/2024 3:36 AM [facility] NRBC Absolute <0.01 <0.01 x10(3)/mc L 06/12/2024 3:36 AM [facility] Neutrophil % 49.9 % 06/12/2024 3:36 AM [facility] Neutrophil Absolute (ANC) - Automated 4.82 1.70 - 6.10 x10(3)/mc L 06/12/2024 3:36 AM [facility] Lymph % 33.5 % 06/12/2024 3:36 AM [facility] Lymph Absolute 3.25(H) 0.90 - 3.20 x10(3)/mc L 06/12/2024 3:36 AM [facility] Monocyte % 11.1 % 06/12/2024 3:36 AM [facility] Monocyte Absolute 1.08(H) 0.30 - 0.90 x10(3)/mc L 06/12/2024 3:36 AM [facility] Eos % 4.1 % 06/12/2024 3:36 AM [facility] Eos Absolute 0.40 0.00 - 0.40 x10(3)/mc L 06/12/2024 3:36 AM [facility] Basophil % 0.8 % 06/12/2024 3:36 AM [facility] Baso Absolute 0.08 0.00 - 0.10 x10(3)/mc L 06/12/2024 3:36 AM [facility] Immature Gran % 0.6 % 3:36 AM [facility] Immature Gran Absolute 0.06(H) 0.00 - 0.04 x10(3)/mc L 06/12/2024 3:36 AM [facility] Blood VENOUS BLOOD SPECIMEN / Unknown Venipuncture / Unknown 06/12/2024 3:03 AM EST 06/12/2024 3:30 AM EST Shahnaz Scanlon MD HEMATOLOGY ORDERABLE S [facility] [place] [address] * Magnesium (06/12/2024 3:03 AM EST) Magnesium 0.79 0.69 - 1.07 mMol/L 06/12/2024 4:01 AM [facility] Blood VENOUS BLOOD SPECIMEN / Unknown Venipuncture / Unknown 06/12/2024 3:03 AM EST 06/12/2024 3:30 AM EST Shahnaz Scanlon MD CHEMISTRY ORDERABLES [facility] [place] [address] * (ABNORMAL) Basic Metabolic Panel (06/12/2024 3:03 AM EST) Glucose 132 65 - 199 mg/dL 06/12/2024 4:01 AM [facility] Comment:Glucose Concentratio n >=200 mg/dL plus symptoms is consistent with Diabetes Mellitus. Blood Urea Nitrogen 23(H) 10 - 20 mg/dL 06/12/2024 4:01 AM [facility] Creatinine 1.15 0.80 - 1.50 mg/dL 06/12/2024 4:01 AM [facility] Sodium 138 135 - 145 mMol/L 06/12/2024 4:01 AM [facility] Potassium 3.8 3.5 - 5.0 mMol/L 06/12/2024 4:01 AM [facility] Chloride 98 98 - 107 mMol/L 06/12/2024 4:01 AM [facility] Carbon Dioxide 29 22 - 31 mMol/L 06/12/2024 4:01 AM [facility] Anion Gap 11 5 - 15 mMol/L 06/12/2024 4:01 AM [facility] Calcium 9.5 8.5 - 10.5 mg/dL 06/12/2024 4:01 AM [facility] Est Glomerular Filtration Rate - Male 70 mL/min/1. 73 m?? 06/12/2024 4:01 AM [facility] Comment: This [...] AM EST Shahnaz Scanlon MD CHEMISTRY ORDERABLES [facility] [place] [address] * POC, GLUCOSE (06/11/2024 11:56 PM EST) Glucometer, POC 135 65 - 199 mg/dL 06/11/2024 11:56 PM EST [facility] Comment:Supplemental ranges: <140 mg/dL before meals <180 mg/dL all other times of the day. Blood CAPILLARY BLOOD / Unknown 06/11/2024 11:56 PM EST 06/11/2024 11:56 PM EST Ethel Carrillo MD POINT OF CARE TEST O RDERAPIETER Performing Organization Address [facility] de Phone Number [facility] [place] [address] * (ABNORMAL) POC, GLUCOSE (06/11/2024 8:25 PM EST) Glucometer, POC 210(H) 65 - 199 mg/dL 06/11/2024 8:26 PM EST [facility] Comment:Supplemental ranges: <140 mg/dL before meals <180 mg/dL all other times of the day. Blood CAPILLARY BLOOD / Unknown 06/11/2024 8:25 PM EST 06/11/2024 8:26 PM EST Ethel Carrillo MD POINT OF CARE TEST O NIKA Performing Organization Address [facility] Co de Phone Number [facility] [place] [address] * POC, GLUCOSE (06/11/2024 4:24 PM EST) Glucometer, POC 81 65 - 199 mg/dL 06/11/2024 4:24 PM EST [facility] Comment:Supplemental ranges: <140 mg/dL before meals <180 mg/dL all other times of the day. Blood CAPILLARY BLOOD / Unknown 06/11/2024 4:24 PM EST 06/11/2024 4:25 PM EST Ethel Carrillo MD POINT OF CARE TEST O NIKA Performing Organization Address [facility] de Phone Number [facility] [place] [address] * (ABNORMAL) POC, GLUCOSE (06/11/2024 11:08 AM EST) Glucometer, POC 233(H) 65 - 199 mg/dL 06/11/2024 11:08 AM EST [facility] Comment:Supplemental ranges: <140 mg/dL before meals <180 mg/dL all other times of the day. Blood CAPILLARY BLOOD / Unknown 06/11/2024 11:08 AM EST 06/11/2024 11:08 AM EST Ethel Carrillo MD POINT OF CARE TEST O NIKA Performing Organization Address [facility] de Phone Number [facility] [place] [address] * POC, GLUCOSE (06/11/2024 7:48 AM EST) Glucometer, POC 184 65 - 199 mg/dL 06/11/2024 7:49 AM EST [facility] Comment:Supplemental ranges: <140 mg/dL before meals <180 mg/dL all other times of the day. Blood CAPILLARY BLOOD / Unknown 06/11/2024 7:48 AM EST 06/11/2024 7:49 AM EST Melida Valdes MD POINT OF CARE TEST O NIKA Performing Organization Address [facility] Co de Phone Number [facility] [place] [address] * Heparin (unfractionated) Level (06/11/2024 5:31 AM EST) UF Heparin 0.55 IU/mL 06/11/2024 6:10 AM EST [facility] Comment: Heparin (anti-Xa) levels [...] HEMATOLOGY ORDERABLE S Performing Organization Address [facility] Co de Phone Number [facility] [place] [address] * POC, GLUCOSE (06/11/2024 3:57 AM EST) Glucometer, POC 132 65 - 199 mg/dL 06/11/2024 3:58 AM EST [facility] Comment:Supplemental ranges: <140 mg/dL before meals <180 mg/dL all other times of the day. Blood CAPILLARY BLOOD / Unknown 06/11/2024 3:57 AM EST 06/11/2024 3:58 AM EST Melida Valdes MD POINT OF CARE TEST O RDERABLES Performing Organization Address [facility] Co de Phone Number [facility] [place] [address] * (ABNORMAL) CBC (with Diff) (06/11/2024 2:13 AM EST) White Blood Cell 9.91(H) 4.00 - 9.50 x10(3)/mc L 06/11/2024 2:26 AM [facility] Red Blood Cell 5.13 4.58 - 5.54 x10(6)/mc L 06/11/2024 2:26 AM [facility] Hemoglobin 15.3 13.7 - 16.5 g/dL 06/11/2024 2:26 AM [facility] Hematocrit 47.5 40.5 - 48.5 % 06/11/2024 2:26 AM [facility] Mean Cell Volume 92.6 82.9 - 93.1 fL 06/11/2024 2:26 AM [facility] Mean Cell Hemoglobin 29.8 27.5 - 32.1 pg 06/11/2024 2:26 AM [facility] Mean Cell Hemoglobin Concentration 32.2 32.0 - 35.7 g/dL 06/11/2024 2:26 AM [facility] Platelet 184 145 - 357 x10(3)/mc L 06/11/2024 2:26 AM [facility] Mean Platelet Volume 9.7 7.6 - 12.9 fL 06/11/2024 2:26 AM [facility] RDW Standard Deviation 48.0(H) 36.0 - 45.0 fL 06/11/2024 2:26 AM [facility] RDW coefficient of variation 14.0(H) 11.4 - 13.8 % 06/11/2024 2:26 AM [facility] NRBC% auto 0.0 % 06/11/2024 2:26 AM [facility] NRBC Absolute <0.01 <0.01 x10(3)/mc L 06/11/2024 2:26 AM [facility] Neutrophil % 50.3 % 06/11/2024 2:26 AM [facility] Neutrophil Absolute (ANC) - Automated 4.98 1.70 - 6.10 x10(3)/mc L 06/11/2024 2:26 AM [facility] Lymph % 33.5 % 06/11/2024 2:26 AM EST [facility] Lymph Absolute 3.32(H) 0.90 - 3.20 x10(3)/mc L 06/11/2024 2:26 AM EST [facility] Monocyte % 10.9 % 06/11/2024 2:26 AM [facility] Monocyte Absolute 1.08(H) 0.30 - 0.90 x10(3)/mc L 06/11/2024 2:26 AM EST [facility] Eos % 4.1 % 06/11/2024 2:26 AM [facility] Eos Absolute 0.41(H) 0.00 - 0.40 x10(3)/mc L 06/11/2024 2:26 AM [facility] Basophil % 0.7 % 06/11/2024 2:26 AM [facility] Baso Absolute 0.07 0.00 - 0.10 x10(3)/mc L 06/11/2024 2:26 AM [facility] Immature Gran % 0.5 % 2:26 AM [facility] Immature Gran Absolute 0.05(H) 0.00 - 0.04 x10(3)/mc L 06/11/2024 2:26 AM [facility] Blood VENOUS BLOOD SPECIMEN / Unknown Venipuncture / Unknown 06/11/2024 2:13 AM EST 06/11/2024 2:19 AM EST Shahnaz Scanlon MD HEMATOLOGY ORDERABLE S [facility] [place] [address] * Magnesium (06/11/2024 2:13 AM EST) Magnesium 0.83 0.69 - 1.07 mMol/L 06/11/2024 2:51 AM [facility] Blood VENOUS BLOOD SPECIMEN / Unknown Venipuncture / Unknown 06/11/2024 2:13 AM EST 06/11/2024 2:19 AM EST Shahnaz Scanlon MD CHEMISTRY ORDERABLES [facility] [place] [address] * (ABNORMAL) Basic Metabolic Panel (06/11/2024 2:13 AM EST) Glucose 148 65 - 199 mg/dL 06/11/2024 2:51 AM EST [facility] Comment:Glucose Concentratio n >=200 mg/dL plus symptoms is consistent with Diabetes Mellitus. Blood Urea Nitrogen 24(H) 10 - 20 mg/dL 06/11/2024 2:51 AM [facility] Creatinine 1.06 0.80 - 1.50 mg/dL 06/11/2024 2:51 AM [facility] Sodium 134(L) 135 - 145 mMol/L 06/11/2024 2:51 AM EST [facility] Potassium 4.1 3.5 - 5.0 mMol/L 06/11/2024 2:51 AM [facility] Chloride 96(L) 98 - 107 mMol/L 06/11/2024 2:51 AM [facility] Carbon Dioxide 28 22 - 31 mMol/L 06/11/2024 2:51 AM EST [facility] Anion Gap 10 5 - 15 mMol/L 06/11/2024 2:51 AM [facility] Calcium 9.4 8.5 - 10.5 mg/dL 06/11/2024 2:51 AM EST [facility] Est Glomerular Filtration Rate - Male 77 mL/min/1. 73 m?? 06/11/2024 2:51 AM [facility] Comment: This [...] MD CHEMISTRY ORDERABLES Performing Organization Address [facility] Co de Phone Number [facility] [place] [address] * POC, GLUCOSE (06/11/2024 12:50 AM EST) Glucometer, POC 144 65 - 199 mg/dL 06/11/2024 12:51 AM EST [facility] Comment:Supplemental ranges: <140 mg/dL before meals <180 mg/dL all other times of the day. Blood CAPILLARY BLOOD / Unknown 06/11/2024 12:50 AM EST 06/11/2024 12:51 AM EST Melida Valdes MD POINT OF CARE TEST O RDERAPIETER Performing Organization Address [facility] Co de Phone Number [facility] [place] [address] * (ABNORMAL) POC, GLUCOSE (06/10/2024 7:22 PM EST) Glucometer, POC 236(H) 65 - 199 mg/dL 06/10/2024 7:22 PM EST [facility] Comment:Supplemental ranges: <140 mg/dL before meals <180 mg/dL all other times of the day. Blood CAPILLARY BLOOD / Unknown 06/10/2024 7:22 PM EST 06/10/2024 7:22 PM EST Melida Valdes MD POINT OF CARE TEST O RDERABLES [facility] [place] [address] * (ABNORMAL) Blood Gas, Venous (06/10/2024 5:42 PM EST) pH, Venous 7.34 7.32 - 7.42 06/10/2024 5:50 PM EST [facility] PCO2, Venous 52 38 - 58 mmHg 06/10/2024 5:50 PM EST [facility] PO2, Venous 24 16 - 65 mmHg 06/10/2024 5:50 PM EST [facility] Bicarbonate, Venous 27.4 22 - 31 mmol/L 06/10/2024 5:50 PM [facility] Base Excess, Venous 1.7(L) 1.9 - 4.5 mmol/L 06/10/2024 5:50 PM [facility] Hemoglobin, Venous 16.8(H) 13.7 - 16.5 g/dL 06/10/2024 5:50 PM [facility] Oxyhemoglobin, Venous 39.0 % 06/10/2024 5:50 PM [facility] Carboxyhemoglobin , Venous 0.3 % 06/10/2024 5:50 PM [facility] Comment: Nonsmokers: 0.5-1.5% COHB ?? Smokers: Variable ??but usually less than 10% ?? Toxic: 20-30% COHB ?? Lethal: Greater than 60% COHB Methemoglobin, Venous 0.5 <=1.5 % 06/10/2024 5:50 PM EST [facility] Sodium, Venous 137 135 - 145 mmol/L 06/10/2024 5:50 PM EST [facility] Chloride, Venous 96(L) 98 - 107 mmol/L 06/10/2024 5:50 PM EST [facility] Potassium, Venous 4.6 3.5 - 5.0 mmol/L 06/10/2024 5:50 PM EST [facility] Ionized Calcium, Venous 1.23 1.15 - 1.33 mmol/L 06/10/2024 5:50 PM EST [facility] Glucose, Venous 114 65 - 199 mg/dL 06/10/2024 5:50 PM EST [facility] Comment:Glucose Concentratio n >=200 mg/dL plus symptoms is consistent with Diabetes Mellitus. Lactate, Venous 1.1 0.5 - 2.2 mmol/L 06/10/2024 5:50 PM EST [facility] Blood Gas Source Venous 06/10/20 5:50 PM [facility] Blood VENOUS BLOOD SPECIMEN / Unknown Blood Gas Venous / Unknown 06/10/2024 5:42 PM EST 06/10/2024 5:47 PM EST Melida Valdes MD CHEMISTRY ORDERABLES Performing Organization Address [facility] Co de Phone Number [facility] [place] [address] * POC, GLUCOSE (06/10/2024 5:35 PM EST) Glucometer, POC 123 65 - 199 mg/dL 06/10/2024 5:35 PM EST [facility] Comment:Supplemental ranges: <140 mg/dL before meals <180 mg/dL all other times of the day. Blood CAPILLARY BLOOD / Unknown 06/10/2024 5:35 PM EST 06/10/2024 5:35 PM EST Melida Valdes MD POINT OF CARE TEST O RDERABLES [facility] [place] [address] * (ABNORMAL) POC, GLUCOSE (06/10/2024 11:25 AM EST) Glucometer, POC 216(H) 65 - 199 mg/dL 06/10/2024 11:25 AM EST [facility] Comment:Supplemental ranges: <140 mg/dL before meals <180 mg/dL all other times of the day. Blood CAPILLARY BLOOD / Unknown 06/10/2024 11:25 AM EST 06/10/2024 11:25 AM EST Melida Valdes MD POINT OF CARE TEST O NIKA Performing Organization Address [facility] Co de Phone Number [facility] [place] [address] * (ABNORMAL) POC, GLUCOSE (06/10/2024 7:46 AM EST) Glucometer, POC 206(H) 65 - 199 mg/dL 06/10/2024 7:46 AM EST [facility] Comment:Supplemental ranges: <140 mg/dL before meals <180 mg/dL all other times of the day. Blood CAPILLARY BLOOD / Unknown 06/10/2024 7:46 AM EST 06/10/2024 7:46 AM EST Melida Valdes MD POINT OF CARE TEST O NIKA Performing Organization Address [facility] Co de Phone Number [facility] [place] [address] * POC, GLUCOSE (06/10/2024 4:23 AM EST) Glucometer, POC 154 65 - 199 mg/dL 06/10/2024 4:24 AM EST [facility] Comment:Supplemental ranges: <140 mg/dL before meals <180 mg/dL all other times of the day. Blood CAPILLARY BLOOD / Unknown 06/10/2024 4:23 AM EST 06/10/2024 4:24 AM EST Melida Valdes MD POINT OF CARE TEST O NIKA Performing Organization Address [facility] Co de Phone Number [facility] [place] [address] * (ABNORMAL) CBC (with Diff) (06/10/2024 1:55 AM EST) White Blood Cell 9.00 4.00 - 9.50 x10(3)/mc L 06/10/2024 2:14 AM [facility] Red Blood Cell 5.03 4.58 - 5.54 x10(6)/mc L 06/10/2024 2:14 AM [facility] Hemoglobin 14.9 13.7 - 16.5 g/dL 06/10/2024 2:14 AM [facility] Hematocrit 46.4 40.5 - 48.5 % 06/10/2024 2:14 AM [facility] Mean Cell Volume 92.2 82.9 - 93.1 fL 06/10/2024 2:14 AM [facility] Mean Cell Hemoglobin 29.6 27.5 - 32.1 pg 06/10/2024 2:14 AM [facility] Mean Cell Hemoglobin Concentration 32.1 32.0 - 35.7 g/dL 06/10/2024 2:14 AM [facility] Platelet 191 145 - 357 x10(3)/mc L 06/10/2024 2:14 AM [facility] Mean Platelet Volume 9.7 7.6 - 12.9 fL 06/10/2024 2:14 AM [facility] RDW Standard Deviation 47.4(H) 36.0 - 45.0 fL 06/10/2024 2:14 AM [facility] RDW coefficient of variation 14.1(H) 11.4 - 13.8 % 06/10/2024 2:14 AM [facility] NRBC% auto 0.0 % 06/10/2024 2:14 AM [facility] NRBC Absolute <0.01 <0.01 x10(3)/mc L 06/10/2024 2:14 AM [facility] Neutrophil % 48.7 % 06/10/2024 2:14 AM [facility] Neutrophil Absolute (ANC) - Automated 4.39 1.70 - 6.10 x10(3)/mc L 06/10/2024 2:14 AM [facility] Lymph % 34.9 % 06/10/2024 2:14 AM EST [facility] Lymph Absolute 3.14 0.90 - 3.20 x10(3)/mc L 06/10/2024 2:14 AM [facility] Monocyte % 11.2 % 06/10/2024 2:14 AM [facility] Monocyte Absolute 1.01(H) 0.30 - 0.90 x10(3)/mc L 06/10/2024 2:14 AM EST [facility] Eos % 3.6 % 06/10/2024 2:14 AM [facility] Eos Absolute 0.32 0.00 - 0.40 x10(3)/mc L 06/10/2024 2:14 AM [facility] Basophil % 1.0 % 06/10/2024 2:14 AM [facility] Baso Absolute 0.09 0.00 - 0.10 x10(3)/mc L 06/10/2024 2:14 AM [facility] Immature Gran % 0.6 % 2:14 AM [facility] Immature Gran Absolute 0.05(H) 0.00 - 0.04 x10(3)/mc L 06/10/2024 2:14 AM [facility] Blood VENOUS BLOOD SPECIMEN / Unknown Venipuncture / Unknown 06/10/2024 1:55 AM EST 06/10/2024 2:05 AM EST Shahnaz Scanlon MD HEMATOLOGY ORDERABLE S [facility] [place] [address] * Magnesium (06/10/2024 1:55 AM EST) Magnesium 0.83 0.69 - 1.07 mMol/L 06/10/2024 2:37 AM [facility] Blood VENOUS BLOOD SPECIMEN / Unknown Venipuncture / Unknown 06/10/2024 1:55 AM EST 06/10/2024 2:05 AM EST Shahnaz Scanlon MD CHEMISTRY ORDERABLES [facility] [place] [address] * (ABNORMAL) Basic Metabolic Panel (06/10/2024 1:55 AM EST) Glucose 140 65 - 199 mg/dL 06/10/2024 2:37 AM EST [facility] Comment:Glucose Concentratio n >=200 mg/dL plus symptoms is consistent with Diabetes Mellitus. Blood Urea Nitrogen 24(H) 10 - 20 mg/dL 06/10/2024 2:37 AM [facility] Creatinine 1.06 0.80 - 1.50 mg/dL 06/10/2024 2:37 AM [facility] Sodium 138 135 - 145 mMol/L 06/10/2024 2:37 AM [facility] Potassium 4.1 3.5 - 5.0 mMol/L 06/10/2024 2:37 AM [facility] Chloride 100 98 - 107 mMol/L 06/10/2024 2:37 AM [facility] Carbon Dioxide 25 22 - 31 mMol/L 06/10/2024 2:37 AM [facility] Anion Gap 13 5 - 15 mMol/L 06/10/2024 2:37 AM [facility] Calcium 9.5 8.5 - 10.5 mg/dL 06/10/2024 2:37 AM [facility] Est Glomerular Filtration Rate - Male 77 mL/min/1. 73 m?? 06/10/2024 2:37 AM [facility] Comment: This [...] MD CHEMISTRY ORDERABLES Performing Organization Address [facility] Co de Phone Number [facility] [place] [address] * Heparin (unfractionated) Level (06/10/2024 1:54 AM EST) UF Heparin 0.56 IU/mL 06/10/2024 2:41 AM EST [facility] Comment: Heparin (anti-Xa) levels [...] HEMATOLOGY ORDERABLE S Performing Organization Address [facility]/ZIP Co de Phone Number [facility] [place] [address] * POC, GLUCOSE (06/10/2024 12:05 AM EST) Glucometer, POC 125 65 - 199 mg/dL 06/10/2024 12:05 AM EST [facility] Comment:Supplemental ranges: <140 mg/dL before meals <180 mg/dL all other times of the day. Blood CAPILLARY BLOOD / Unknown 06/10/2024 12:05 AM EST 06/10/2024 12:05 AM EST Melida Valdes MD POINT OF CARE TEST O NIKA Performing Organization Address [facility]/ZIP Co de Phone Number [facility] [place] [address] * POC, GLUCOSE (06/09/2024 8:36 PM EST) Glucometer, POC 197 65 - 199 mg/dL 06/09/2024 8:36 PM EST [facility] Comment:Supplemental ranges: <140 mg/dL before meals <180 mg/dL all other times of the day. Blood CAPILLARY BLOOD / Unknown 06/09/2024 8:36 PM EST 06/09/2024 8:36 PM EST Melida Valdes MD POINT OF CARE TEST O NIKA Performing Organization Address [facility]/ZIP Co de Phone Number [facility] [place] [address] * POC, GLUCOSE (06/09/2024 5:27 PM EST) Glucometer, POC 174 65 - 199 mg/dL 06/09/2024 5:28 PM EST [facility] Comment:Supplemental ranges: <140 mg/dL before meals <180 mg/dL all other times of the day. Blood CAPILLARY BLOOD / Unknown 06/09/2024 5:27 PM EST 06/09/2024 5:28 PM EST Melida Valdes MD POINT OF CARE TEST O RDERABLES Performing Organization Address [facility] Co de Phone Number [facility] [place] [address] * (ABNORMAL) POC, GLUCOSE (06/09/2024 11:52 AM EST) Glucometer, POC 211(H) 65 - 199 mg/dL 06/09/2024 11:52 AM EST [facility] Comment:Supplemental ranges: <140 mg/dL before meals <180 mg/dL all other times of the day. Blood CAPILLARY BLOOD / Unknown 06/09/2024 11:52 AM EST 06/09/2024 11:52 AM EST Melida Valdes MD POINT OF CARE TEST O RDERABLES Performing Organization Address [facility] Co de Phone Number [facility] [place] [address] * Potassium (06/09/2024 8:25 AM EST) Potassium 4.6 3.5 - 5.0 mMol/L 06/09/2024 10:09 AM EST [facility] Blood VENOUS BLOOD SPECIMEN / Unknown Venipuncture / Unknown 06/09/2024 8:25 AM EST 06/09/2024 8:42 AM EST Shahnaz Scanlon MD CHEMISTRY ORDERABLES Performing Organization Address [facility] Co de Phone Number [facility] [place] [address] * (ABNORMAL) POC, GLUCOSE (06/09/2024 8:10 AM EST) Glucometer, POC 209(H) 65 - 199 mg/dL 06/09/2024 8:10 AM EST [facility] Comment:Supplemental ranges: <140 mg/dL before meals <180 mg/dL all other times of the day. Blood CAPILLARY BLOOD / Unknown 06/09/2024 8:10 AM EST 06/09/2024 8:11 AM EST Melida Valdes MD POINT OF CARE TEST O RDBECKIE Performing Organization Address [facility] Co de Phone Number [facility] [place] [address] * POC, GLUCOSE (06/09/2024 4:40 AM EST) Glucometer, POC 131 65 - 199 mg/dL 06/09/2024 4:40 AM EST [facility] Comment:Supplemental ranges: <140 mg/dL before meals <180 mg/dL all other times of the day. Blood CAPILLARY BLOOD / Unknown 06/09/2024 4:40 AM EST 06/09/2024 4:41 AM EST Melida Valdes MD POINT OF CARE TEST O NIKA Performing Organization Address [facility] Co de Phone Number [facility] [place] [address] * Heparin (unfractionated) Level (06/09/2024 2:12 AM EST) UF Heparin 0.55 IU/mL 06/09/2024 2:33 AM EST [facility] Comment: Heparin (anti-Xa) levels [...] EST Shahnaz Scanlon MD HEMATOLOGY ORDERABLE S [facility] [place] [address] * (ABNORMAL) CBC (with Diff) (06/09/2024 2:12 AM EST) White Blood Cell 9.80(H) 4.00 - 9.50 x10(3)/mc L 06/09/2024 2:44 AM [facility] Red Blood Cell 5.18 4.58 - 5.54 x10(6)/mc L 06/09/2024 2:44 AM [facility] Hemoglobin 15.5 13.7 - 16.5 g/dL 06/09/2024 2:44 AM [facility] Hematocrit 47.4 40.5 - 48.5 % 06/09/2024 2:44 AM [facility] Mean Cell Volume 91.5 82.9 - 93.1 fL 06/09/2024 2:44 AM [facility] Mean Cell Hemoglobin 29.9 27.5 - 32.1 pg 06/09/2024 2:44 AM [facility] Mean Cell Hemoglobin Concentration 32.7 32.0 - 35.7 g/dL 06/09/2024 2:44 AM [facility] Platelet 205 145 - 357 x10(3)/mc L 06/09/2024 2:44 AM [facility] Mean Platelet Volume 9.7 7.6 - 12.9 fL 06/09/2024 2:44 AM [facility] RDW Standard Deviation 47.7(H) 36.0 - 45.0 fL 06/09/2024 2:44 AM [facility] RDW coefficient of variation 14.1(H) 11.4 - 13.8 % 06/09/2024 2:44 AM [facility] NRBC% auto 0.0 % 06/09/2024 2:44 AM [facility] NRBC Absolute <0.01 <0.01 x10(3)/mc L 06/09/2024 2:44 AM [facility] Neutrophil % 53.0 % 06/09/2024 2:44 AM [facility] Neutrophil Absolute (ANC) - Automated 5.19 1.70 - 6.10 x10(3)/mc L 06/09/2024 2:44 AM [facility] Lymph % 31.6 % 06/09/2024 2:44 AM [facility] Lymph Absolute 3.10 0.90 - 3.20 x10(3)/mc L 06/09/2024 2:44 AM [facility] Monocyte % 11.0 % 06/09/2024 2:44 AM [facility] Monocyte Absolute 1.08(H) 0.30 - 0.90 x10(3)/mc L 06/09/2024 2:44 AM [facility] Eos % 2.9 % 06/09/2024 2:44 AM [facility] Eos Absolute 0.28 0.00 - 0.40 x10(3)/mc L 06/09/2024 2:44 AM [facility] Basophil % 0.9 % 06/09/2024 2:44 AM [facility] Baso Absolute 0.09 0.00 - 0.10 x10(3)/mc L 06/09/2024 2:44 AM [facility] Immature Gran % 0.6 % 2:44 AM [facility] Immature Gran Absolute 0.06(H) 0.00 - 0.04 x10(3)/mc L 06/09/2024 2:44 AM [facility] Blood VENOUS BLOOD SPECIMEN / Unknown Venipuncture / Unknown 06/09/2024 2:12 AM EST 06/09/2024 2:21 AM EST Shahnaz Scanlon MD HEMATOLOGY ORDERABLE S [facility] [place] [address] * Magnesium (06/09/2024 2:12 AM EST) Pathologist [facility] Magnesium 0.83 0.69 - 1.07 mMol/L 06/09/2024 2:52 AM EST [facility] Blood VENOUS BLOOD SPECIMEN / Unknown Venipuncture / Unknown 06/09/2024 2:12 AM EST 06/09/2024 2:22 AM EST Shahnaz Scanlon MD CHEMISTRY ORDERABLES Performing Organization Address [place]/[facility]/ZIP Co de Phone Number [facility] [place] [address] * (ABNORMAL) Basic Metabolic Panel (06/09/2024 2:12 AM EST) [facility] Glucose 147 65 - 199 mg/dL 06/09/2024 2:52 AM [facility] Comment:Glucose Concentratio n >=200 mg/dL plus symptoms is consistent with Diabetes Mellitus. Blood Urea Nitrogen 24(H) 10 - 20 mg/dL 06/09/2024 2:52 AM [facility] Creatinine 1.11 0.80 - 1.50 mg/dL 06/09/2024 2:52 AM [facility] Sodium 136 135 - 145 mMol/L 06/09/2024 2:52 AM [facility] Potassium 3.9 3.5 - 5.0 mMol/L 06/09/2024 2:52 AM [facility] Chloride 98 98 - 107 mMol/L 06/09/2024 2:52 AM [facility] Carbon Dioxide 27 22 - 31 mMol/L 06/09/2024 2:52 AM [facility] Anion Gap 11 5 - 15 mMol/L 06/09/2024 2:52 AM [facility] Calcium 9.7 8.5 - 10.5 mg/dL 06/09/2024 2:52 AM EST [facility] Est Glomerular Filtration Rate - Male 73 mL/min/1. 73 m?? 06/09/2024 2:52 AM EST [facility] Comment: This patient's estimated [...] Organization Address City/[facility]/ZIP Co de Phone Number [facility] [place] [address] * POC, GLUCOSE (06/09/2024 12:34 AM EST) Glucometer, POC 186 65 - 199 mg/dL 06/09/2024 12:34 AM EST [facility] Comment:Supplemental ranges: <140 mg/dL before meals <180 mg/dL all other times of the day. Blood CAPILLARY BLOOD / Unknown 06/09/2024 12:34 AM EST 06/09/2024 12:34 AM EST Melida Valdes MD POINT OF CARE TEST O RDERABLES Performing Organization Address City/[facility]/ZIP Co de Phone Number [facility] [place] [address] * POC, GLUCOSE (06/08/2024 8:27 PM EST) Glucometer, POC 176 65 - 199 mg/dL 06/08/2024 8:28 PM EST [facility] Comment:Supplemental ranges: <140 mg/dL before meals <180 mg/dL all other times of the day. Blood CAPILLARY BLOOD / Unknown 06/08/2024 8:27 PM EST 06/08/2024 8:28 PM EST Melida Valdes MD POINT OF CARE TEST O NIKA Performing Organization Address City/[facility] Co de Phone Number [facility] [place] [address] * POC, GLUCOSE (06/08/2024 4:16 PM EST) Glucometer, POC 159 65 - 199 mg/dL 06/08/2024 4:16 PM EST [facility] Comment:Supplemental ranges: <140 mg/dL before meals <180 mg/dL all other times of the day. Blood CAPILLARY BLOOD / Unknown 06/08/2024 4:16 PM EST 06/08/2024 4:16 PM EST Melida Valdes MD POINT OF CARE TEST O NIKA Performing Organization Address [facility] Co de Phone Number [facility] [place] [address] * (ABNORMAL) POC, GLUCOSE (06/08/2024 12:35 PM EST) Glucometer, POC 226(H) 65 - 199 mg/dL 06/08/2024 12:35 PM EST [facility] Comment:Supplemental ranges: <140 mg/dL before meals <180 mg/dL all other times of the day. Blood CAPILLARY BLOOD / Unknown 06/08/2024 12:35 PM EST 06/08/2024 12:35 PM EST Melida Valdes MD POINT OF CARE TEST O NIKA Performing Organization Address City/[facility]/ZIP Co de Phone Number [facility] [place] [address] * POC, GLUCOSE (06/08/2024 8:10 AM EST) Glucometer, POC 190 65 - 199 mg/dL 06/08/2024 8:14 AM EST [facility] Comment:Supplemental ranges: <140 mg/dL before meals <180 mg/dL all other times of the day. Blood CAPILLARY BLOOD / Unknown 06/08/2024 8:10 AM EST 06/08/2024 8:14 AM EST Melida Valdes MD POINT OF CARE TEST O NIKA Performing Organization Address City/[facility]/ZIP Co de Phone Number [facility] [place] [address] * POC, GLUCOSE (06/08/2024 4:09 AM EST) Glucometer, POC 151 65 - 199 mg/dL 06/08/2024 4:10 AM EST [facility] Comment:Supplemental ranges: <140 mg/dL before meals <180 mg/dL all other times of the day. Blood CAPILLARY BLOOD / Unknown 06/08/2024 4:09 AM EST 06/08/2024 4:10 AM EST Melida Valdes MD POINT OF CARE TEST Abimael MAHER Performing Organization Address City/[facility]/ZIP Co de Phone Number [facility] [place] [address] * Heparin (unfractionated) Level (06/08/2024 3:21 AM EST) UF Heparin 0.46 IU/mL 06/08/2024 3:41 AM EST [facility] Comment: Heparin (anti-Xa) levels [...] EST Shahnaz Scanlon MD HEMATOLOGY ORDERABLE S [facility] [place] [address] * (ABNORMAL) CBC (with Diff) (06/08/2024 3:21 AM EST) White Blood Cell 9.92(H) 4.00 - 9.50 x10(3)/mc L 06/08/2024 3:34 AM [facility] Red Blood Cell 5.09 4.58 - 5.54 x10(6)/mc L 06/08/2024 3:34 AM [facility] Hemoglobin 15.1 13.7 - 16.5 g/dL 06/08/2024 3:34 AM [facility] Hematocrit 46.7 40.5 - 48.5 % 06/08/2024 3:34 AM [facility] Mean Cell Volume 91.7 82.9 - 93.1 fL 06/08/2024 3:34 AM [facility] Mean Cell Hemoglobin 29.7 27.5 - 32.1 pg 06/08/2024 3:34 AM [facility] Mean Cell Hemoglobin Concentration 32.3 32.0 - 35.7 g/dL 06/08/2024 3:34 AM [facility] Platelet 203 145 - 357 x10(3)/mc L 06/08/2024 3:34 AM [facility] Mean Platelet Volume 9.4 7.6 - 12.9 fL 06/08/2024 3:34 AM [facility] RDW Standard Deviation 46.9(H) 36.0 - 45.0 fL 06/08/2024 3:34 AM [facility] RDW coefficient of variation 13.8 11.4 - 13.8 % 06/08/2024 3:34 AM [facility] NRBC% auto 0.0 % 06/08/2024 3:34 AM [facility] NRBC Absolute <0.01 <0.01 x10(3)/mc L 06/08/2024 3:34 AM [facility] Neutrophil % 56.8 % 06/08/2024 3:34 AM [facility] Neutrophil Absolute (ANC) - Automated 5.63 1.70 - 6.10 x10(3)/mc L 06/08/2024 3:34 AM [facility] Lymph % 27.3 % 06/08/2024 3:34 AM [facility] Lymph Absolute 2.71 0.90 - 3.20 x10(3)/mc L 06/08/2024 3:34 AM [facility] Monocyte % 11.2 % 06/08/2024 3:34 AM [facility] Monocyte Absolute 1.11(H) 0.30 - 0.90 x10(3)/mc L 06/08/2024 3:34 AM [facility] Eos % 3.4 % 06/08/2024 3:34 AM [facility] Eos Absolute 0.34 0.00 - 0.40 x10(3)/mc L 06/08/2024 3:34 AM [facility] Basophil % 0.8 % 06/08/2024 3:34 AM [facility] Baso Absolute 0.08 0.00 - 0.10 x10(3)/mc L 06/08/2024 3:34 AM [facility] Immature Gran % 0.5 % 3:34 AM EST [facility] Immature Gran Absolute 0.05(H) 0.00 - 0.04 x10(3)/mc L 06/08/2024 3:34 AM [facility] Blood VENOUS BLOOD SPECIMEN / Unknown Venipuncture / Unknown 06/08/2024 3:21 AM EST 06/08/2024 3:27 AM EST Shahnaz Scanlon MD HEMATOLOGY ORDERABLE S Performing Organization Address [facility] Co de Phone Number [facility] [place] [address] * Magnesium (06/08/2024 3:21 AM EST) Magnesium 0.84 0.69 - 1.07 mMol/L 06/08/2024 3:59 AM [facility] Blood VENOUS BLOOD SPECIMEN / Unknown Venipuncture / Unknown 06/08/2024 3:21 AM EST 06/08/2024 3:27 AM EST Shahnaz Scanlon MD CHEMISTRY ORDERABLES Performing Organization Address [facility] Co de Phone Number [facility] [place] [address] * (ABNORMAL) Basic Metabolic Panel (06/08/2024 3:21 AM EST) Glucose 173 65 - 199 mg/dL 06/08/2024 3:59 AM [facility] Comment:Glucose Concentratio n >=200 mg/dL plus symptoms is consistent with Diabetes Mellitus. Blood Urea Nitrogen 25(H) 10 - 20 mg/dL 06/08/2024 3:59 AM [facility] Creatinine 1.09 0.80 - 1.50 mg/dL 06/08/2024 3:59 AM [facility] Sodium 135 135 - 145 mMol/L 06/08/2024 3:59 AM [facility] Potassium 4.2 3.5 - 5.0 mMol/L 06/08/2024 3:59 AM EST [facility] Chloride 98 98 - 107 mMol/L 06/08/2024 3:59 AM [facility] Carbon Dioxide 25 22 - 31 mMol/L 06/08/2024 3:59 AM [facility] Anion Gap 12 5 - 15 mMol/L 06/08/2024 3:59 AM [facility] Calcium 9.4 8.5 - 10.5 mg/dL 06/08/2024 3:59 AM [facility] Est Glomerular Filtration Rate - Male 74 mL/min/1. 73 m?? 06/08/2024 3:59 AM [facility] Comment: This [...] AM EST Shahnaz Scanlon MD CHEMISTRY ORDERABLES [facility] [place] [address] * POC, GLUCOSE (06/07/2024 11:57 PM EST) Glucometer, POC 188 65 - 199 mg/dL 06/07/2024 11:57 PM EST [facility] Comment:Supplemental ranges: <140 mg/dL before meals <180 mg/dL all other times of the day. Blood CAPILLARY BLOOD / Unknown 06/07/2024 11:57 PM EST 06/07/2024 11:58 PM EST Melida Valdes MD POINT OF CARE TEST O NIKA Performing Organization Address [facility] Co de Phone Number [facility] [place] [address] * POC, GLUCOSE (06/07/2024 8:05 PM EST) Glucometer, POC 118 65 - 199 mg/dL 06/07/2024 8:06 PM EST [facility] Comment:Supplemental ranges: <140 mg/dL before meals <180 mg/dL all other times of the day. Blood CAPILLARY BLOOD / Unknown 06/07/2024 8:05 PM EST 06/07/2024 8:06 PM EST Melida Valdes MD POINT OF CARE TEST Abimael MAHER Performing Organization Address [facility] Co de Phone Number [facility] [place] [address] * Potassium (06/07/2024 5:22 PM EST) Potassium 4.6 3.5 - 5.0 mMol/L 06/07/2024 5:59 PM EST [facility] Blood VENOUS BLOOD SPECIMEN / Unknown Venipuncture / Unknown 06/07/2024 5:22 PM EST 06/07/2024 5:26 PM EST Shahnaz Scanlon MD CHEMISTRY ORDERABLES Performing Organization Address City/[facility] Co de Phone Number [facility] [place] [address] * POC, GLUCOSE (06/07/2024 4:31 PM EST) Glucometer, POC 174 65 - 199 mg/dL 06/07/2024 4:34 PM EST [facility] Comment:Supplemental ranges: <140 mg/dL before meals <180 mg/dL all other times of the day. Blood CAPILLARY BLOOD / Unknown 06/07/2024 4:31 PM EST 06/07/2024 4:34 PM EST Melida Valdes MD POINT OF CARE TEST O RDERABLES [facility] [place] [address] * MRI Cardiac Morphology Function wwo Contrast (06/07/2024 1:10 PM EST) WORKSTATION ID [id number] DH RAD Anatomical Region Laterality Modality Magnetic [...] - Mildly dilated left ventricle size with [id number] decreased LV systolic function. ??LV ejection fraction [...] who have questions please contact the health senior care assistant that requested your imaging first. ? Electronically signed by: Kriss Alonzo MD, [facility] ([phone]), at 06/07/2024 2:41 PM Narrative 06/07/2024 2:41 [...] VENTRICLE: Mildly dilated left ventricle size with [id number] decreased LV systolic function. ??LV ejection fraction [...] VENTRICLE: Mildly dilated left ventricle size with [id number] decreasedLV systolic function. LV ejection fraction is [...] - Mildly dilated left ventricle size with [id number] decreasedLV systolic function. LV ejection fraction is [...] patients who have questions please contactthe health senior care assistant that requested your imaging first. Delroy Fofana MD IMG MRI ORDERABLES * (ABNORMAL) POC, GLUCOSE (06/07/2024 11:05 AM EST) [facility] Glucometer, POC 221(H) 65 - 199 mg/dL 06/07/2024 11:06 AM EST [facility] Comment:Supplemental ranges: <140 mg/dL before meals <180 mg/dL all other times of the day. Blood CAPILLARY BLOOD / Unknown 06/07/2024 11:05 AM EST 06/07/2024 11:06 AM EST Melida Valdes MD POINT OF CARE TEST O NIKA Performing Organization Address City/[facility]/ZIP Co de Phone Number [facility] [place] [address] * (ABNORMAL) POC, GLUCOSE (06/07/2024 11:03 AM EST) Glucometer, POC 250(H) 65 - 199 mg/dL 06/07/2024 11:04 AM EST [facility] Comment:Supplemental ranges: <140 mg/dL before meals <180 mg/dL all other times of the day. Blood CAPILLARY BLOOD / Unknown 06/07/2024 11:03 AM EST 06/07/2024 11:04 AM EST Melida Valdes MD POINT OF CARE TEST O NIKA Performing Organization Address City/[facility]/ZIP Co de Phone Number [facility] [place] [address] * Potassium (06/07/2024 9:44 AM EST) Potassium 4.7 3.5 - 5.0 mMol/L 06/07/2024 10:23 AM EST [facility] Blood VENOUS BLOOD SPECIMEN / Unknown Venipuncture / Unknown 06/07/2024 9:44 AM EST 06/07/2024 9:57 AM EST Shahnaz Scanlon MD CHEMISTRY ORDERABLES Performing Organization Address City/[facility]/ZIP Co de Phone Number [facility] [place] [address] * POC, GLUCOSE (06/07/2024 7:45 AM EST) Glucometer, POC 175 65 - 199 mg/dL 06/07/2024 7:45 AM EST [facility] Comment:Supplemental ranges: <140 mg/dL before meals <180 mg/dL all other times of the day. Blood CAPILLARY BLOOD / Unknown 06/07/2024 7:45 AM EST 06/07/2024 7:46 AM EST Melida Valdes MD POINT OF CARE TEST O RDERABLES [facility] [place] [address] * XR Chest PA & Lateral (Generic) (06/07/2024 7:03 AM EST) WORKSTATION ID [id number] RAD Anatomical Region Laterality Modality Chest N/A [...] who have questions please contact the health senior care assistant that requested your imaging first. ? Electronically signed by: Stuart Aponte MD, [facility] ??([phone]), at 06/07/2024 10:45 AM Narrative 06/07/2024 10:45 [...] patients who have questions please contactthe health senior care assistant that requested your imaging first. Electronically signed by: Stuart Aponte MD, [facility]([phone]), at 06/07/2024 10:45 AM Shahnaz Scanlon MD IMG DX ORDERABLES * POC, GLUCOSE (06/07/2024 4:25 AM EST) [facility] Glucometer, POC 127 65 - 199 mg/dL 06/07/2024 4:26 AM EST [facility] Comment:Supplemental ranges: <140 mg/dL before meals <180 mg/dL all other times of the day. Blood CAPILLARY BLOOD / Unknown 06/07/2024 4:25 AM EST 06/07/2024 4:26 AM EST Melida Valdes MD POINT OF CARE TEST O RDERABLES [facility] [place] [address] * Heparin (unfractionated) Level (06/07/2024 2:41 AM EST) Pathologist [facility] UF Heparin 0.45 IU/mL 06/07/2024 3:03 AM EST [facility] Comment: Heparin (anti-Xa) levels [...] City/State/[facility] Co de Phone Number [facility] [place] [address] * (ABNORMAL) CBC (with Diff) (06/07/2024 2:41 AM EST) [facility] White Blood Cell 10.06(H) 4.00 - 9.50 x10(3)/mc L 06/07/2024 2:58 AM EST [facility] Red Blood Cell 5.02 4.58 - 5.54 x10(6)/mc L 06/07/2024 2:58 AM EST [facility] Hemoglobin 14.8 13.7 - 16.5 g/dL 06/07/2024 2:58 AM EST [facility] Hematocrit 46.2 40.5 - 48.5 % 06/07/2024 2:58 AM EST [facility] Mean Cell Volume 92.0 82.9 - 93.1 fL 06/07/2024 2:58 AM [facility] Mean Cell Hemoglobin 29.5 27.5 - 32.1 pg 06/07/2024 2:58 AM [facility] Mean Cell Hemoglobin Concentration 32.0 32.0 - 35.7 g/dL 06/07/2024 2:58 AM [facility] Platelet 202 145 - 357 x10(3)/mc L 06/07/2024 2:58 AM [facility] Mean Platelet Volume 9.6 7.6 - 12.9 fL 06/07/2024 2:58 AM [facility] RDW Standard Deviation 46.3(H) 36.0 - 45.0 fL 06/07/2024 2:58 AM [facility] RDW coefficient of variation 13.8 11.4 - 13.8 % 06/07/2024 2:58 AM [facility] NRBC% auto 0.0 % 06/07/2024 2:58 AM [facility] NRBC Absolute <0.01 <0.01 x10(3)/mc L 06/07/2024 2:58 AM [facility] Neutrophil % 55.9 % 06/07/2024 2:58 AM [facility] Neutrophil Absolute (ANC) - Automated 5.62 1.70 - 6.10 x10(3)/mc L 06/07/2024 2:58 AM [facility] Lymph % 28.3 % 06/07/2024 2:58 AM [facility] Lymph Absolute 2.85 0.90 - 3.20 x10(3)/mc L 06/07/2024 2:58 AM [facility] Monocyte % 10.8 % 06/07/2024 2:58 AM [facility] Monocyte Absolute 1.09(H) 0.30 - 0.90 x10(3)/mc L 06/07/2024 2:58 AM [facility] Eos % 3.6 % 06/07/2024 2:58 AM EST [facility] Eos Absolute 0.36 0.00 - 0.40 x10(3)/mc L 06/07/2024 2:58 AM EST [facility] Basophil % 0.8 % 06/07/2024 2:58 AM [facility] Baso Absolute 0.08 0.00 - 0.10 x10(3)/mc L 06/07/2024 2:58 AM EST [facility] Immature Gran % 0.6 % 2:58 AM [facility] Immature Gran Absolute 0.06(H) 0.00 - 0.04 x10(3)/mc L 06/07/2024 2:58 AM [facility] Blood VENOUS BLOOD SPECIMEN / Unknown Venipuncture / Unknown 06/07/2024 2:41 AM EST 06/07/2024 2:52 AM EST Shahnaz Scanlon MD HEMATOLOGY ORDERABLE S [facility] [place] [address] * Magnesium (06/07/2024 2:41 AM EST) Magnesium 0.92 0.69 - 1.07 mMol/L 06/07/2024 3:25 AM EST [facility] Blood VENOUS BLOOD SPECIMEN / Unknown Venipuncture / Unknown 06/07/2024 2:41 AM EST 06/07/2024 2:51 AM EST Shahnaz Scanlon MD CHEMISTRY ORDERABLES [facility] [place] [address] * (ABNORMAL) Basic Metabolic Panel (06/07/2024 2:41 AM EST) Glucose 140 65 - 199 mg/dL 06/07/2024 3:25 AM [facility] Comment:Glucose Concentratio n >=200 mg/dL plus symptoms is consistent with Diabetes Mellitus. Blood Urea Nitrogen 26(H) 10 - 20 mg/dL 06/07/2024 3:25 AM [facility] Creatinine 1.06 0.80 - 1.50 mg/dL 06/07/2024 3:25 AM [facility] Sodium 136 135 - 145 mMol/L 06/07/2024 3:25 AM [facility] Potassium 3.8 3.5 - 5.0 mMol/L 06/07/2024 3:25 AM [facility] Chloride 98 98 - 107 mMol/L 06/07/2024 3:25 AM [facility] Carbon Dioxide 28 22 - 31 mMol/L 06/07/2024 3:25 AM [facility] Anion Gap 10 5 - 15 mMol/L 06/07/2024 3:25 AM [facility] Calcium 9.4 8.5 - 10.5 mg/dL 06/07/2024 3:25 AM [facility] Est Glomerular Filtration Rate - Male 77 mL/min/1. 73 m?? 06/07/2024 3:25 AM [facility] Comment: This [...] MD CHEMISTRY ORDERABLES Performing Organization Address [facility] Co de Phone Number [facility] [place] [address] * POC, GLUCOSE (06/07/2024 12:08 AM EST) Glucometer, POC 182 65 - 199 mg/dL 06/07/2024 12:09 AM EST [facility] Comment:Supplemental ranges: <140 mg/dL before meals <180 mg/dL all other times of the day. Blood CAPILLARY BLOOD / Unknown 06/07/2024 12:08 AM EST 06/07/2024 12:09 AM EST Melida Valdes MD POINT OF CARE TEST O NIKA Performing Organization Address [facility] de Phone Number [facility] [place] [address] * POC, GLUCOSE (06/06/2024 8:18 PM EST) Glucometer, POC 143 65 - 199 mg/dL 06/06/2024 8:19 PM EST [facility] Comment:Supplemental ranges: <140 mg/dL before meals <180 mg/dL all other times of the day. Blood CAPILLARY BLOOD / Unknown 06/06/2024 8:18 PM EST 06/06/2024 8:19 PM EST Melida Valdes MD POINT OF CARE TEST O NIKA Performing Organization Address [facility] Co de Phone Number [facility] [place] [address] * POC, GLUCOSE (06/06/2024 3:39 PM EST) Glucometer, POC 147 65 - 199 mg/dL 06/06/2024 3:40 PM EST [facility] Comment:Supplemental ranges: <140 mg/dL before meals <180 mg/dL all other times of the day. Blood CAPILLARY BLOOD / Unknown 06/06/2024 3:39 PM EST 06/06/2024 3:40 PM EST Melida Valdes MD POINT OF CARE TEST O NIKA Performing Organization Address City/[facility]/ZIP Co de Phone Number [facility] [place] [address] * Potassium (06/06/2024 2:37 PM EST) Potassium 4.3 3.5 - 5.0 mMol/L 06/06/2024 3:01 PM EST [facility] Blood VENOUS BLOOD SPECIMEN / Unknown Venipuncture / Unknown 06/06/2024 2:37 PM EST 06/06/2024 2:42 PM EST Shahnaz Scanlon MD CHEMISTRY ORDERABLES Performing Organization Address [facility] Co de Phone Number [facility] [place] [address] * (ABNORMAL) POC, GLUCOSE (06/06/2024 1:39 PM EST) Glucometer, POC 317(H) 65 - 199 mg/dL 06/06/2024 1:40 PM EST [facility] Comment:Supplemental ranges: <140 mg/dL before meals <180 mg/dL all other times of the day. Blood CAPILLARY BLOOD / Unknown 06/06/2024 1:39 PM EST 06/06/2024 1:41 PM EST Melida Valdes MD POINT OF CARE TEST O NIKA Performing Organization Address City/[facility]/ZIP Co de Phone Number [facility] [place] [address] * (ABNORMAL) POC, GLUCOSE (06/06/2024 11:34 AM EST) Glucometer, POC 264(H) 65 - 199 mg/dL 06/06/2024 11:35 AM EST [facility] Comment:Supplemental ranges: <140 mg/dL before meals <180 mg/dL all other times of the day. Blood CAPILLARY BLOOD / Unknown 06/06/2024 11:34 AM EST 06/06/2024 11:35 AM EST Melida Valdse MD POINT OF CARE TEST O RDBECKIE Performing Organization Address City/[facility]/ZIP Co de Phone Number [facility] [place] [address] * Potassium (06/06/2024 10:17 AM EST) Potassium 4.3 3.5 - 5.0 mMol/L 06/06/2024 10:46 AM EST [facility] Blood VENOUS BLOOD SPECIMEN / Unknown Venipuncture / Unknown 06/06/2024 10:17 AM EST 06/06/2024 10:22 AM EST Shahnaz Scanlon MD CHEMISTRY ORDERABLES Performing Organization Address City/[facility]/ZIP Co de Phone Number [facility] [place] [address] * POC, GLUCOSE (06/06/2024 7:57 AM EST) Glucometer, POC 195 65 - 199 mg/dL 06/06/2024 8:03 AM EST [facility] Comment:Supplemental ranges: <140 mg/dL before meals <180 mg/dL all other times of the day. Blood CAPILLARY BLOOD / Unknown 06/06/2024 7:57 AM EST 06/06/2024 8:03 AM EST Melida Valdes MD POINT OF CARE TEST O NIKA Performing Organization Address City/[facility]/ZIP Co de Phone Number [facility] [place] [address] * POC, GLUCOSE (06/06/2024 6:53 AM EST) Glucometer, POC 187 65 - 199 mg/dL 06/06/2024 6:53 AM EST [facility] Comment:Supplemental ranges: <140 mg/dL before meals <180 mg/dL all other times of the day. Blood CAPILLARY BLOOD / Unknown 06/06/2024 6:53 AM EST 06/06/2024 6:54 AM EST Melida Valdes MD POINT OF CARE TEST O RDERABLES [facility] [place] [address] * (ABNORMAL) Hemoglobin A1c (06/06/2024 3:33 AM EST) Pathologist [facility] Hemoglobin A1c 7.1(H) 4.3 - 5.6 % 06/06/2024 1:01 PM EST [facility] Comment: Per ADA guidelines, [...] blood cell turnover may not be medical center representative of glycemic control. Reference Interval: 4.3 - 5.6% 5.7 - 6.4%: Consistent with prediabetes >=6.5%: Consistent with diagnosis of diabetes mellitus Estimated Average Glucose 157 mg/dL 06/06/2024 1:01 PM EST [facility] Blood VENOUS BLOOD SPECIMEN / Unknown Venipuncture / Unknown 06/06/2024 3:33 AM EST 06/06/2024 3:48 AM EST Alejandra Baumann APRN CHEMISTRY ORDERAB LES [facility] [place] [address] * Heparin (unfractionated) Level (06/06/2024 3:33 AM EST) Pathologist [facility] UF Heparin 0.36 IU/mL 06/06/2024 3:59 AM EST [facility] Comment: Heparin (anti-Xa) levels [...] City/State/[facility] Co de Phone Number [facility] [place] [address] * (ABNORMAL) CBC (with Diff) (06/06/2024 3:33 AM EST) White Blood Cell 9.81(H) 4.00 - 9.50 x10(3)/mc L 06/06/2024 3:54 AM EST [facility] Red Blood Cell 4.91 4.58 - 5.54 x10(6)/mc L 06/06/2024 3:54 AM EST [facility] Hemoglobin 14.6 13.7 - 16.5 g/dL 06/06/2024 3:54 AM EST [facility] Hematocrit 45.4 40.5 - 48.5 % 06/06/2024 3:54 AM [facility] Mean Cell Volume 92.5 82.9 - 93.1 fL 06/06/2024 3:54 AM EST [facility] Mean Cell Hemoglobin 29.7 27.5 - 32.1 pg 06/06/2024 3:54 AM [facility] Mean Cell Hemoglobin Concentration 32.2 32.0 - 35.7 g/dL 06/06/2024 3:54 AM [facility] Platelet 199 145 - 357 x10(3)/mc L 06/06/2024 3:54 AM [facility] Mean Platelet Volume 9.5 7.6 - 12.9 fL 06/06/2024 3:54 AM [facility] RDW Standard Deviation 47.2(H) 36.0 - 45.0 fL 06/06/2024 3:54 AM [facility] RDW coefficient of variation 13.9(H) 11.4 - 13.8 % 06/06/2024 3:54 AM [facility] NRBC% auto 0.0 % 06/06/2024 3:54 AM [facility] NRBC Absolute <0.01 <0.01 x10(3)/mc L 06/06/2024 3:54 AM [facility] Neutrophil % 56.8 % 06/06/2024 3:54 AM [facility] Neutrophil Absolute (ANC) - Automated 5.57 1.70 - 6.10 x10(3)/mc L 06/06/2024 3:54 AM [facility] Lymph % 27.6 % 06/06/2024 3:54 AM [facility] Lymph Absolute 2.71 0.90 - 3.20 x10(3)/mc L 06/06/2024 3:54 AM [facility] Monocyte % 11.1 % 06/06/2024 3:54 AM [facility] Monocyte Absolute 1.09(H) 0.30 - 0.90 x10(3)/mc L 06/06/2024 3:54 AM [facility] Eos % 3.0 % 06/06/2024 3:54 AM [facility] Eos Absolute 0.29 0.00 - 0.40 x10(3)/mc L 06/06/2024 3:54 AM EST [facility] Basophil % 0.9 % 06/06/2024 3:54 AM EST [facility] Baso Absolute 0.09 0.00 - 0.10 x10(3)/mc L 06/06/2024 3:54 AM EST [facility] Immature Gran % 0.6 % 3:54 AM EST [facility] Immature Gran Absolute 0.06(H) 0.00 - 0.04 x10(3)/mc L 06/06/2024 3:54 AM EST [facility] Blood VENOUS BLOOD SPECIMEN / Unknown Venipuncture / Unknown 06/06/2024 3:33 AM EST 06/06/2024 3:48 AM EST Shahnaz Scanlon MD HEMATOLOGY ORDERABLE S Performing Organization Address City/[facility]/ZIP Co de Phone Number [facility] [place] [address] * Magnesium (06/06/2024 3:33 AM EST) Magnesium 0.92 0.69 - 1.07 mMol/L 06/06/2024 4:17 AM [facility] Blood VENOUS BLOOD SPECIMEN / Unknown Venipuncture / Unknown 06/06/2024 3:33 AM EST 06/06/2024 3:47 AM EST Shahnaz Scanlon MD CHEMISTRY ORDERABLES [facility] [place] [address] * (ABNORMAL) Basic Metabolic Panel (06/06/2024 3:33 AM EST) Glucose 190 65 - 199 mg/dL 06/06/2024 4:17 AM [facility] Comment:Glucose Concentratio n >=200 mg/dL plus symptoms is consistent with Diabetes Mellitus. Blood Urea Nitrogen 27(H) 10 - 20 mg/dL 06/06/2024 4:17 AM [facility] Creatinine 1.12 0.80 - 1.50 mg/dL 06/06/2024 4:17 AM [facility] Sodium 136 135 - 145 mMol/L 06/06/2024 4:17 AM [facility] Potassium 4.0 3.5 - 5.0 mMol/L 06/06/2024 4:17 AM [facility] Chloride 97(L) 98 - 107 mMol/L 06/06/2024 4:17 AM [facility] Carbon Dioxide 26 22 - 31 mMol/L 06/06/2024 4:17 AM [facility] Anion Gap 13 5 - 15 mMol/L 06/06/2024 4:17 AM [facility] Calcium 9.1 8.5 - 10.5 mg/dL 06/06/2024 4:17 AM [facility] Est Glomerular Filtration Rate - Male 72 mL/min/1. 73 m?? 06/06/2024 4:17 AM [facility] Comment: This [...] AM EST Shahnaz Scanlon MD CHEMISTRY ORDERABLES [facility] [place] [address] * (ABNORMAL) POC, GLUCOSE (06/05/2024 10:31 PM EDT) Glucometer, POC 238(H) 65 - 199 mg/dL 06/05/2024 10:31 PM EDT [facility] Comment:Supplemental ranges: <140 mg/dL before meals <180 mg/dL all other times of the day. Blood CAPILLARY BLOOD / Unknown 06/05/2024 10:31 PM EDT 06/05/2024 10:31 PM EDT Melida Valdes MD POINT OF CARE TEST O NIKA Performing Organization Address [facility] Co de Phone Number [facility] [place] [address] * (ABNORMAL) POC, GLUCOSE (06/05/2024 4:22 PM EDT) Glucometer, POC 205(H) 65 - 199 mg/dL 06/05/2024 4:22 PM EDT [facility] Comment:Supplemental ranges: <140 mg/dL before meals <180 mg/dL all other times of the day. Blood CAPILLARY BLOOD / Unknown 06/05/2024 4:22 PM EDT 06/05/2024 4:23 PM EDT Melida Valdes MD POINT OF CARE TEST O RALPHERAPIETER Performing Organization Address City/[facility]/ZIP Co de Phone Number [facility] [place] [address] * (ABNORMAL) POC, GLUCOSE (06/05/2024 11:34 AM EDT) Glucometer, POC 211(H) 65 - 199 mg/dL 06/05/2024 11:34 AM EDT [facility] Comment:Supplemental ranges: <140 mg/dL before meals <180 mg/dL all other times of the day. Blood CAPILLARY BLOOD / Unknown 06/05/2024 11:34 AM EDT 06/05/2024 11:34 AM EDT Melida Valdes MD POINT OF CARE TEST O RDERABLES Performing Organization Address City/[facility]/ZIP Co de Phone Number [facility] [place] [address] * Potassium (06/05/2024 9:04 AM EDT) [facility] Potassium 4.3 3.5 - 5.0 mMol/L 06/05/2024 9:50 AM EDT [facility] Blood VENOUS BLOOD SPECIMEN / Unknown Venipuncture / Unknown 06/05/2024 9:04 AM EDT 06/05/2024 9:21 AM EDT Shahnaz Scanlon MD CHEMISTRY ORDERABLES Performing Organization Address [facility] Co de Phone Number [facility] [place] [address] * POC, GLUCOSE (06/05/2024 7:27 AM EDT) [facility] Glucometer, POC 166 65 - 199 mg/dL 06/05/2024 7:27 AM EDT [facility] Comment:Supplemental ranges: <140 mg/dL before meals <180 mg/dL all other times of the day. Blood CAPILLARY BLOOD / Unknown 06/05/2024 7:27 AM EDT 06/05/2024 7:27 AM EDT Melida Valdes MD POINT OF CARE TEST O NIKA Performing Organization Address [facility] Co de Phone Number [facility] [place] [address] * Heparin (unfractionated) Level (06/05/2024 3:44 AM EDT) [facility] UF Heparin 0.44 IU/mL 06/05/2024 4:07 AM EDT [facility] Comment: Heparin (anti-Xa) levels [...] City/State/[facility] Co de Phone Number [facility] [place] [address] * (ABNORMAL) CBC (with Diff) (06/05/2024 3:44 AM EDT) White Blood Cell 10.83(H) 4.00 - 9.50 x10(3)/mc L 06/05/2024 3:56 AM EDT [facility] Red Blood Cell 5.07 4.58 - 5.54 x10(6)/mc L 06/05/2024 3:56 AM EDT [facility] Hemoglobin 15.3 13.7 - 16.5 g/dL 06/05/2024 3:56 AM EDT [facility] Hematocrit 46.8 40.5 - 48.5 % 06/05/2024 3:56 AM EDT [facility] Mean Cell Volume 92.3 82.9 - 93.1 fL 06/05/2024 3:56 AM EDT [facility] Mean Cell Hemoglobin 30.2 27.5 - 32.1 pg 06/05/2024 3:56 AM EDT [facility] Mean Cell Hemoglobin Concentration [...] % 0.8 % 06/05/2024 3:56 AM EDT [facility] Baso Absolute 0.09 0.00 - 0.10 x10(3)/mc L 06/05/2024 3:56 AM EDT [facility] Immature Gran % 0.6 % 3:56 AM EDT [facility] Immature Gran Absolute 0.07(H) 0.00 - 0.04 x10(3)/mc L 06/05/2024 3:56 AM EDT [facility] Blood VENOUS BLOOD SPECIMEN / Unknown Venipuncture / Unknown 06/05/2024 3:44 AM EDT 06/05/2024 3:50 AM EDT Shahnaz Scanlon MD HEMATOLOGY ORDERABLE S Performing Organization Address City/[facility]/ZIP Co de Phone Number [facility] [place] [address] * Magnesium (06/05/2024 3:44 AM EDT) Magnesium 0.92 0.69 - 1.07 mMol/L 06/05/2024 4:20 AM EDT [facility] Blood VENOUS BLOOD SPECIMEN / Unknown Venipuncture / Unknown 06/05/2024 3:44 AM EDT 06/05/2024 3:50 AM EDT Shahnaz Scanlon MD CHEMISTRY ORDERABLES [facility] [place] [address] * (ABNORMAL) Basic Metabolic Panel (06/05/2024 3:44 AM EDT) Glucose 155 65 - 199 mg/dL 06/05/2024 4:20 AM EDT [facility] Comment:Glucose Concentratio n >=200 [...] AM EDT Shahnaz Scanlon MD CHEMISTRY ORDERABLES [facility] [place] [address] * Potassium (06/04/2024 10:34 PM EDT) Potassium 3.7 3.5 - 5.0 mMol/L 06/04/2024 11:03 PM EDT [facility] Blood VENOUS BLOOD SPECIMEN / Unknown Venipuncture / Unknown 06/04/2024 10:34 PM EDT 06/04/2024 10:39 PM EDT Shahnaz Scanlon MD CHEMISTRY ORDERABLES [facility] [place] [address] * POC, GLUCOSE (06/04/2024 7:43 PM EDT) Glucometer, POC 175 65 - 199 mg/dL 06/04/2024 7:43 PM EDT [facility] Comment:Supplemental ranges: <140 mg/dL before meals <180 mg/dL all other times of the day. Blood CAPILLARY BLOOD / Unknown 06/04/2024 7:43 PM EDT 06/04/2024 7:43 PM EDT Melida Valdes MD POINT OF CARE TEST O RDERABLES [facility] [place] [address] * Potassium (06/04/2024 4:35 PM EDT) Potassium 4.0 3.5 - 5.0 mMol/L 06/04/2024 5:32 PM EDT [facility] Blood VENOUS BLOOD SPECIMEN / Unknown Venipuncture / Unknown 06/04/2024 4:35 PM EDT 06/04/2024 4:40 PM EDT Shahnaz Scanlon MD CHEMISTRY ORDERABLES [facility] [place] [address] * POC, GLUCOSE (06/04/2024 3:26 PM EDT) Glucometer, POC 154 65 - 199 mg/dL 06/04/2024 3:26 PM EDT [facility] Comment:Supplemental ranges: <140 mg/dL before meals <180 mg/dL all other times of the day. Blood CAPILLARY BLOOD / Unknown 06/04/2024 3:26 PM EDT 06/04/2024 3:27 PM EDT Melida Valdes MD POINT OF CARE TEST O RDERABLES Performing Organization Address City/[facility]/ZIP Co de Phone Number [facility] [place] [address] * POC, GLUCOSE (06/04/2024 11:09 AM EDT) Glucometer, POC 188 65 - 199 mg/dL 06/04/2024 11:09 AM EDT [facility] Comment:Supplemental ranges: <140 mg/dL before meals <180 mg/dL all other times of the day. Blood CAPILLARY BLOOD / Unknown 06/04/2024 11:09 AM EDT 06/04/2024 11:09 AM EDT Delroy Fofana MD POINT OF CARE TEST ORDERABLES Performing Organization Address City/[facility]/ZIP Co de Phone Number [facility] [place] [address] * Heparin (unfractionated) Level (06/04/2024 10:41 AM EDT) UF Heparin 0.43 IU/mL 06/04/2024 11:06 AM EDT [facility] Comment: Heparin (anti-Xa) levels [...] Organization Address City/[facility]/ZIP Co de Phone Number [facility] [place] [address] * Potassium (06/04/2024 10:41 AM EDT) Potassium 4.0 3.5 - 5.0 mMol/L 06/04/2024 11:11 AM EDT [facility] Blood VENOUS BLOOD SPECIMEN / Unknown Venipuncture / Unknown 06/04/2024 10:41 AM EDT 06/04/2024 10:46 AM EDT Shahnaz Scanlon MD CHEMISTRY ORDERABLES Performing Organization Address [facility] Co de Phone Number [facility] [place] [address] * POC, GLUCOSE (06/04/2024 7:11 AM EDT) Glucometer, POC 182 65 - 199 mg/dL 06/04/2024 7:12 AM EDT [facility] Comment:Supplemental ranges: <140 mg/dL before meals <180 mg/dL all other times of the day. Blood CAPILLARY BLOOD / Unknown 06/04/2024 7:11 AM EDT 06/04/2024 7:12 AM EDT Delroy Fofana MD POINT OF CARE TEST ORDERABLES Performing Organization Address [facility] Co de Phone Number [facility] [place] [address] * Heparin (unfractionated) Level (06/04/2024 4:38 AM EDT) UF Heparin 0.41 IU/mL 06/04/2024 5:19 AM EDT [facility] Comment: Heparin (anti-Xa) levels [...] HEMATOLOGY ORDERABLE S Performing Organization Address [facility]/ZIP Co de Phone Number [facility] [place] [address] * (ABNORMAL) CBC (with Diff) (06/04/2024 4:38 AM EDT) White Blood Cell 11.45(H) 4.00 - 9.50 x10(3)/mc L 06/04/2024 5:12 AM EDT [facility] Red Blood Cell 5.35 4.58 - 5.54 x10(6)/mc L 06/04/2024 5:12 AM EDT [facility] Hemoglobin 16.0 13.7 - [...] 3.20 x10(3)/mc L 06/04/2024 5:12 AM EDT [facility] Monocyte % 10.6 % 06/04/2024 5:12 AM EDT [facility] Monocyte Absolute 1.21(H) 0.30 - 0.90 x10(3)/mc L 06/04/2024 5:12 AM EDT [facility] Eos % 2.8 % 06/04/2024 5:12 AM EDT [facility] Eos Absolute 0.32 0.00 - 0.40 x10(3)/mc L 06/04/2024 5:12 AM EDT [facility] Basophil % 0.7 % 06/04/2024 5:12 AM EDT [facility] Baso Absolute 0.08 0.00 - 0.10 x10(3)/mc L 06/04/2024 5:12 AM EDT [facility] Immature Gran % 0.5 % 5:12 AM EDT [facility] Immature Gran Absolute 0.06(H) 0.00 - 0.04 x10(3)/mc L 06/04/2024 5:12 AM EDT [facility] Blood VENOUS BLOOD SPECIMEN / Unknown Venipuncture / Unknown 06/04/2024 4:38 AM EDT 06/04/2024 5:07 AM EDT Shahnaz Scanlon MD HEMATOLOGY ORDERABLE S [facility] [place] [address] * Magnesium (06/04/2024 4:38 AM EDT) Magnesium 0.84 0.69 - 1.07 mMol/L 06/04/2024 5:35 AM EDT [facility] Blood VENOUS BLOOD SPECIMEN / Unknown Venipuncture / Unknown 06/04/2024 4:38 AM EDT 06/04/2024 5:07 AM EDT Shahnaz Scanlon MD CHEMISTRY ORDERABLES [facility] [place] [address] * (ABNORMAL) Basic Metabolic Panel (06/04/2024 4:38 AM EDT) Glucose 118 65 - 199 mg/dL 06/04/2024 5:35 AM EDT [facility] Comment:Glucose Concentratio n >=200 mg/dL plus symptoms is consistent with Diabetes Mellitus. Blood Urea Nitrogen 22(H) 10 - 20 mg/dL 06/04/2024 5:35 AM EDT [facility] Creatinine 1.22 0.80 - 1.50 mg/dL 06/04/2024 5:35 AM EDT [facility] Sodium 137 135 - 145 mMol/L 06/04/2024 5:35 AM EDT [facility] Potassium 3.6 3.5 - 5.0 mMol/L 06/04/2024 5:35 AM EDT [facility] Chloride 97(L) 98 - 107 mMol/L 06/04[facility]2024 [facility] Carbon Dioxide 29 22 - 31 mMol/L 06/04/2024 5:[facility] Anion Gap 11 5 - 15 mMol/L 06/04/2024 5:[facility] Calcium 9.0 8.5 - 10.5 mg/dL 06/04/2024 5:35 AM EDT [facility] Est Glomerular Filtration Rate - Male 65 mL/min/1. 73 m?? 06/04/2024 5:35 AM EDT [facility] Comment: This patient's estimated [...] MD CHEMISTRY ORDERABLES Performing Organization Address [facility] Co de Phone Number [facility] [place] [address] * Heparin (unfractionated) Level (06/03/2024 8:58 PM EDT) UF Heparin 0.27 IU/mL 06/03/2024 9:33 PM EDT [facility] Comment: Heparin (anti-Xa) levels [...] HEMATOLOGY ORDERABLE S Performing Organization Address [facility] Co de Phone Number [facility] [place] [address] * POC, GLUCOSE (06/03/2024 8:05 PM EDT) Glucometer, POC 136 65 - 199 mg/dL 06/03/2024 8:05 PM EDT [facility] Comment:Supplemental ranges: <140 mg/dL before meals <180 mg/dL all other times of the day. Blood CAPILLARY BLOOD / Unknown 06/03/2024 8:05 PM EDT 06/03/2024 8:05 PM EDT Delroy Fofana MD POINT OF CARE TEST ORDERABLES Performing Organization Address [facility] Co de Phone Number [facility] [place] [address] * POC, GLUCOSE (06/03/2024 5:48 PM EDT) Glucometer, POC 191 65 - 199 mg/dL 06/03/2024 5:48 PM EDT [facility] Comment:Supplemental ranges: <140 mg/dL before meals <180 mg/dL all other times of the day. Blood CAPILLARY BLOOD / Unknown 06/03/2024 5:48 PM EDT 06/03/2024 5:49 PM EDT Delroy Fofana MD POINT OF CARE TEST ORDERABLES Performing Organization Address City/[facility] Co de Phone Number [facility] [place] [address] * CT Chest wo Contrast (Generic) (06/03/2024 4:33 PM EDT) WORKSTATION ID [id number] DH RAD Anatomical Region Laterality Modality Chest Computed Tomogra phy Impressions 06/03/2024 4:47 PM EDT Cardiomegaly. Biventricular ICD leads in place. Thank you for letting us participate in the care of this patient. ??If you are a health care provider and have any questions regarding this report, please contact the number below. ??For patients who have questions please contact the health senior care assistant that requested your imaging first. ? Electronically signed by: Stuart Aponte MD, [facility] ??([phone]), at 06/03/2024 4:47 PM Narrative 06/03/2024 4:47 [...] patients who have questions please contactthe health senior care assistant that requested your imaging first. Electronically signed by: Stuart Aponte MD, [facility]([phone]), at 06/03/2024 4:47 PM Bobby Loja MD IMG CT ORDERABLES * Carotid Duplex, Bilateral (06/03/2024 2:19 PM EDT) VB Text Report Department: Vascular Surgery Lab Patient: [id number] (GEORGE MEHTA) CPT: 75307 Referring Physician: BOBBY LOJA ?? Phone: Indications: [...] Heparin 0.15 IU/mL 06/03/2024 1:13 PM EDT [facility] Comment: Heparin (anti-Xa) levels [...] EDT Shahnaz Scanlon MD HEMATOLOGY ORDERABLE S [facility] [place] [address] * POC, GLUCOSE (06/03/2024 11:14 AM EDT) Glucometer, POC 166 65 - 199 mg/dL 06/03/2024 11:14 AM EDT [facility] Comment:Supplemental ranges: <140 mg/dL before meals <180 mg/dL all other times of the day. Blood CAPILLARY BLOOD / Unknown 06/03/2024 11:14 AM EDT 06/03/2024 11:14 AM EDT Delroy Fofana MD POINT OF CARE TEST ORDERABLES [facility] [place] [address] * (ABNORMAL) Troponin-T, High Sensitivity 3 Hour (06/03/2024 10:06 AM EDT) Troponin-T, High Sensitivity 266(H) <=22 ng/L 06/03/2024 10:50 AM EDT [facility] Comment: This patient's troponin [...] [facility] Test Catalog Troponin - https://[email or web address]/catalogs/565/files/32771 Reference: Fourth [place] Definition of Myocardial Infarction. Journal of the [place] [employer] 2018;72:0123-4989 Troponin-T, HS 3 hr delta 06/03/2024 10:50 AM EDT [facility] Comment:Delta troponin value not calculated, sample collected outside of delta calculation time limit. Blood VENOUS BLOOD SPECIMEN / Unknown IP Care Team Draw / Unknown 06/03/2024 10:06 AM EDT 06/03/2024 10:15 AM EDT Delroy Fofana MD CHEMISTRY ORDERABLE S [facility] [place] [address] * ECHO COMPLETE W CONTRAST (06/03/2024 8:46 AM EDT) Anatomical Region Laterality Modality Cardiac Other 06/03/2024 6:52 AM EDT Narrative 06/03/2024 10:32 AM EDT [address] [place] [id number] ? Echocardiogram Report Name: GEORGE MEHTA Raad ?Study Date: 06/03/2024 06:52 AM : 1955 ? Height: 168 cm ? Account: [id number] Age: 69 yrs ? Weight: 102 kg Gender: Male ?BSA: 2.1 m2 Ordering Physician: SHAHNAZ SCANLON Referring Physician: NEHAL QUINTERO Performed By: Sara Kebede RDCS Reason For Study: STEMI Exam Location: [facility]. Interpretation Summary -Left ventricular systolic [...] fellow performed study of today's date). Procedure Complete-[id number]. Image enhancement Optison was used for left [...] Note Jonnie Jordan MD - 06/03/2024 [address] [place] [address] Echocardiogram Report Name: GEORGE MEHTA Study Date: 406:52 AM : 1955 Height: 168 cm Account: [id number] Age: 69 yrs Weight: 102 kg Gender: Male BSA: 2.1 m2 Ordering Physician: SHAHNAZ SCANLON Referring Physician: NEHLA QUINTERO Performed By: Sara Kebede RDCS Reason For Study: STEMI Exam Location: [facility]. Interpretation Summary -Left ventricular systolic [...] a fellow performed study oftoday's date). Procedure Complete-[id number]. Image enhancement Optison was used for left [...] 289(H) <=22 ng/L 06/03/2024 9:26 AM EDT [facility] Comment: This patient's troponin [...] [facility] Test [facility] Troponin - https://[email or web address].org/catalogs/565/files/60318 Reference: Fourth [place] Definition of Myocardial Infarction. Journal of the [place] [employer] 2018;72:5186-1945 Troponin-T, HS 1 hr delta 5 ng/L 06/03/2024 9:26 AM EDT [facility] Comment:The 1 hour Troponin T delta value is the absolute difference between the Troponin T concentrations of the initial and subsequent sample collected between 45 - 120 minutes following the initial collection. Blood VENOUS BLOOD SPECIMEN / Unknown IP Care Team Draw / Unknown 06/03/2024 8:27 AM EDT 06/03/2024 8:37 AM EDT Delroy Fofana MD CHEMISTRY ORDERABLE S [facility] [place] [address] * POC, GLUCOSE (06/03/2024 7:54 AM EDT) Glucometer, POC 195 65 - 199 mg/dL 06/03/2024 7:55 AM EDT [facility] Comment:Supplemental ranges: <140 mg/dL before meals <180 mg/dL all other times of the day. Blood CAPILLARY BLOOD / Unknown 06/03/2024 7:54 AM EDT 06/03/2024 7:55 AM EDT Nuha Rojo MD POINT OF CARE TEST ORDERABLES Performing Organization Address City/[facility]/ZIP Co de Phone Number [facility] [place] [address] * (ABNORMAL) Troponin-T, High Sensitivity (06/03/2024 7:39 AM EDT) Troponin-T, High Sensitivity Initial 284(H) <=22 ng/L 06/03/2024 8:29 AM EDT [facility] Comment: This patient's troponin [...] [facility] Test [facility] Troponin - https://[email or web address]/catalogs/565/files/43719 Reference: Fourth [place] Definition of Myocardial Infarction. Journal of the [place] [employer] 2018;72:5859-0006 Blood VENOUS BLOOD SPECIMEN / Unknown IP Care Team Draw / Unknown 06/03/2024 7:39 AM EDT 06/03/2024 7:48 AM EDT Delroy Fofana MD CHEMISTRY ORDERABLE S Performing Organization Address City/[facility]/ZIP Co de Phone Number [facility] [place] [address] * (ABNORMAL) Troponin-T, High Sensitivity 3 Hour (06/03/2024 5:11 AM EDT) Troponin-T, High Sensitivity 254(H) <=22 ng/L 06/03/2024 5:49 AM EDT [facility] Comment: This patient's troponin [...] [facility] Troponin - https://[email or web address].[email or web address]/catalogs/565/files/74136 Reference: Fourth [place] Definition of Myocardial Infarction. Journal of the [place] [employer] 2018;72:4727-9631 Troponin-T, HS 3 hr delta 46 ng/L 06/03/2024 5:49 AM EDT [facility] Comment:The 3 hour Troponin T delta value is the absolute difference between the Troponin T concentrations of the initial and subsequent sample collected between 2 h: 45 min and 6 h following the initial collection Blood VENOUS BLOOD SPECIMEN / Unknown IP Care Team Draw / Unknown 06/03/2024 5:11 AM EDT 06/03/2024 5:20 AM EDT Shahnaz Scanlon MD CHEMISTRY ORDERABLES [facility] [place] [address] * (ABNORMAL) Troponin-T, High Sensitivity 1 Hour (06/03/2024 3:07 AM EDT) Troponin-T, High Sensitivity 218(H) <=22 ng/L 06/03/2024 3:39 AM EDT [facility] Comment: This patient's troponin [...] [facility] Test Catalog Troponin - https://[email or web address]/catalogs/565/files/32497 Reference: Fourth [place] Definition of Myocardial Infarction. Journal of the [place] [employer] 2018;72:6558-6128 Troponin-T, HS 1 hr delta 10 ng/L 06/03/2024 3:39 AM EDT [facility] Comment:The 1 hour Troponin T delta value is the absolute difference between the Troponin T concentrations of the initial and subsequent sample collected between 45 - 120 minutes following the initial collection. Blood VENOUS BLOOD SPECIMEN / Unknown IP Care Team Draw / Unknown 06/03/2024 3:07 AM EDT 06/03/2024 3:12 AM EDT Shahnaz Scanlon MD CHEMISTRY ORDERABLES [facility] [place] [address] * XR Chest One View (06/03/2024 2:41 AM EDT) WORKSTATION ID [id number] RAD Anatomical Region Laterality Modality Chest N/A Digital Radiogra phy Impressions 06/03/2024 3:06 AM EDT No radiographically evident acute cardiopulmonary process. Thank you for letting us participate in the care of this patient. ??If you are a health care provider and have any questions regarding this report, please contact the number below. ??For patients who have questions please contact the health senior care assistant that requested your imaging first. ? Electronically signed by: Corazon Mauro MD, [facility] ([phone]), at 06/03/2024 3:06 AM Narrative 06/03/2024 3:06 [...] patients who have questions please contactthe health senior care assistant that requested your imaging first. Electronically signed by: Corazon Mauro MD, [facility]([phone]), at 06/03/2024 3:06 AM Shahnaz Scanlon MD IMG DX ORDERABLES * Heparin (unfractionated) Level (06/03/2024 2:13 AM EDT) Pathologist [facility] UF Heparin 0.56 IU/mL 06/03/2024 4:13 AM EDT [facility] Comment: Heparin (anti-Xa) levels [...] EDT Shahnaz Scanlon MD HEMATOLOGY ORDERABLE S [facility] [place] [address] * (ABNORMAL) Troponin-T, High Sensitivity (06/03/2024 2:13 AM EDT) Pathologist [facility] Troponin-T, High Sensitivity Initial 208(H) <=22 ng/L 06/03/2024 3:02 AM EDT [facility] Comment: This patient's troponin [...] [facility] Test Catalog Troponin - [email or web address]/catalogs/565/files/[email or web address] Reference: Fourth [place] Definition of Myocardial Infarction. Journal of the [place] College of Cardiology 2018;72:7873-3653 Blood VENOUS BLOOD SPECIMEN / Unknown IP Care Team Draw / Unknown 06/03/2024 2:13 AM EDT 06/03/2024 2:32 AM EDT Shahnaz Scanlon MD CHEMISTRY ORDERABLES [facility] [place] [address] * Magnesium (06/03/2024 2:13 AM EDT) Pathologist [facility] Magnesium 0.86 0.69 - 1.07 mMol/L 06/03/2024 3:02 AM EDT [facility] Blood VENOUS BLOOD SPECIMEN / Unknown IP Care Team Draw / Unknown 06/03/2024 2:13 AM EDT 06/03/2024 2:32 AM EDT Shahnaz Scanlon MD CHEMISTRY ORDERABLES [facility] [place] [address] * Basic Metabolic Panel (06/03/2024 2:13 AM EDT) Glucose 126 65 - 199 mg/dL 06/03/2024 3:02 AM EDT [facility] Comment:Glucose Concentratio n >=200 [...] AM EDT Shahnaz Scanlon MD CHEMISTRY ORDERABLES [facility] [place] [address] * (ABNORMAL) CBC (with Diff) (06/03/2024 2:13 AM EDT) White Blood Cell 11.16(H) 4.00 - 9.50 x10(3)/mc L [facility]/03[facility]24 [facility] Red Blood Cell 5.09 4.58 - 5.54 x10(6)/mc L 06/03/2024 2:37 AM [facility] Hemoglobin 15.0 13.7 - 16.5 g/dL 06/03/2024 2:37 AM [facility] Hematocrit 47.4 40.5 - 48.5 % 06/03/2024 2:37 AM EDT [facility] Mean Cell Volume 93.1 82.9 - 93.1 fL 06/03/2024 2:37 AM [facility] Mean Cell Hemoglobin 29.5 27.5 - 32.1 pg 06/03/2024 2:37 AM [facility] Mean Cell Hemoglobin Concentration 31.6(L) 32.0 - 35.7 g/dL 06/03/2024 2:37 AM [facility] Platelet 217 145 - 357 x10(3)/mc L 06/03/2024 2:37 AM EDT [facility] Mean Platelet Volume 9.5 [...] 0.10 x10(3)/mc L 06/03/2024 2:37 AM EDT [facility] Immature Gran % 0.4 % 2:37 AM EDT [facility] Immature Gran Absolute 0.05(H) 0.00 - 0.04 x10(3)/mc L 06/03/2024 2:37 AM EDT [facility] Blood VENOUS BLOOD SPECIMEN / Unknown IP Care Team Draw / Unknown 06/03/2024 2:13 AM EDT 06/03/2024 2:31 AM EDT Shahnaz Scanlon MD HEMATOLOGY ORDERABLE S [facility] [place] [address] * Lipid Panel (Reflex Direct LDL) (06/03/2024 [...] AM EDT 06/03/2024 2:32 AM EDT [facility] - 06/03/2024 3:02 AM EDT It [...] ACC/AHA Guidelines (most recently Bruce et al. [employer] 05/07/22): * For individuals with atherosclerotic cardiovascular [...] MD CHEMISTRY ORDERABLES Performing Organization Address [facility] Phone Number [facility] [place] [address] * (ABNORMAL) APTT (06/03/2024 2:13 AM EDT) Partial Thromboplastin Time 105(HHH) 25 - 37 sec 06/03/2024 4:13 AM EDT [facility] Comment: The PTT is [...] MD HEMATOLOGY ORDERABLE S Performing Organization Address [facility] Phone Number [facility] [place] [address] * Prothrombin Time (06/03/2024 2:13 AM EDT) Prothrombin Time 11.5 9.4 - 12.5 sec 06/03/2024 4:13 AM EDT [facility] International Normalization Ratio 1.0 <=4.9 06/03/2024 4:13 AM EDT [facility] Comment: An INR < [...] Organization Address City/[facility]/ZIP Co de Phone Number [facility] [place] [place] [address] * Hepatic Function Panel (06/03/2024 2:13 AM EDT) Albumin 3.8 3.2 - 5.2 g/dL 06/03/2024 3:02 AM EDT [facility] Aspartate Aminotransferase 20 <=39 unit/L 06/03/2024 3:02 AM EDT [facility] Alanine Aminotransferase 12 0 - 55 unit/L 06/03/2024 3:02 AM EDT [facility] Alkaline Phosphatase 76 40 - 130 unit/L 06/03/2024 3:02 AM EDT [facility] Bilirubin, Total 0.4 <=1.3 mg/dL 06/03/2024 3:02 AM EDT [facility] Bilirubin, Direct <0.2 0.0 - 0.3 mg/dL 06/03/2024 3:02 AM EDT [facility] Protein, Total 7.0 6.1 - 8.0 g/dL 06/03/2024 3:02 AM EDT [facility] Blood VENOUS BLOOD SPECIMEN / Unknown IP Care Team Draw / Unknown 06/03/2024 2:13 AM EDT 06/03/2024 2:32 AM EDT Shahnaz Scanlon MD CHEMISTRY ORDERABLES Performing Organization Address City/[facility]/ZIP Co de Phone Number [facility] [place] [address] * (ABNORMAL) pro-Brain Natriuretic Peptide (06/03/2024 2:13 AM EDT) NT-proBNP 1,628(H) <=124 pg/mL 06/03/2024 4:15 AM EDT [facility] Blood VENOUS BLOOD SPECIMEN / Unknown IP Care Team Draw / Unknown 06/03/2024 2:13 AM EDT 06/03/2024 2:32 AM EDT Shahnaz Scanlon MD CHEMISTRY ORDERABLES [facility] [place] [place] [address] * Phosphorus (06/03/2024 2:13 AM EDT) Pathologist [facility] Phosphorus 4.4 2.5 - 4.5 mg/dL 06/03/2024 3:02 AM EDT [facility] Blood VENOUS BLOOD SPECIMEN / Unknown IP Care Team Draw / Unknown 06/03/2024 2:13 AM EDT 06/03/2024 2:32 AM EDT Shahnaz Scanlon MD CHEMISTRY ORDERABLES [facility] [place] [place] [address] * EKG 12 Lead (06/03/2024 1:45 AM EDT) Ventricular rate 63 BPM MUSE SYSTEM Atrial Rate 63 BPM MUSE SYSTEM P-R Interval 168 ms MUSE SYSTEM QRS Duration 96 ms MUSE SYSTEM Q-T Interval 400 ms MUSE SYSTEM QTC Calculated (Bezet) 409 ms MUSE SYSTEM Calculated P [place]wick 65 degrees MUSE SYSTEM Calculated R [place] 70 degrees MUSE SYSTEM Calculated T Chadwick -86 degrees MUSE SYSTEM INTERPRETATION Atrial-sensed ventricular-paced rhythm Abnormal ECG No previous ECGs available I personally reviewed the tracing and edited the fellows interpretation Confirmed by fellow Sunni Agudelo ([id number]) on 06/04/2024 3:55:40 PM Confirmed by MD Tamia, Stuart Perry ([id number]) on 06/05/2024 11:46:48 AM MUSE SYSTEM 06/03/2024 1:45 AM EDT 06/05/2024 11:46 AM EDT Shahnaz Scanlon MD ECG ORDERABLES MUSE SYSTEM * CARDIAC CATHETERIZATION (06/03/2024 12:42 AM EDT) Anatomical Region Laterality Modality Other Narrative 06/04/2024 2:22 PM EDT ?[facility] ? Cardiac Catheterization/Intervention Report ? Patient Name: Tyson, George L. ? Procedure Date: 06/02/2024 ? A #: [id number] ? Primary Physician: Nuha Shen I ? Case #: [id number] ? File Name: [id number] ? Catheterization Order Number: [id number] ? [facility] ? Final Report [place], [place] ? Patient Name: ? George L. Tyson ? ID#: ?[id number] ? : ?1955 ? Procedure Date: ? June 02, 2024 ? Case #: ? [id number] ? Room: ? 5 ? Case Physician: [...] was Emergent. The indication for ?the laborer starch factory visit is ACS less than or equal [...] ?3.5 guiding catheter and a 3.5 Fr [place] 20 Mhz using Manual ?pullback. ??Imaging was [...] 3.5 guiding catheter and a 3.5 Fr [place] 20 Mhz using ?Manual pullback. ??Imaging was [...] Procedure Note Nuha Shen MD - 07/20/2024 [facility] Cardiac Catheterization/Intervention Report Patient Name: George Mehta Procedure Date: 06/02/2024 A #: [id number] Primary Physician: Nuha Shen I Case #: [id number] File Name: [id number] Catheterization Order Number: [id number] [facility] FinalReport [place], [place] Patient Name: George Mehta ID#:[id number] :1955 Procedure Date: June 02, 2024 Case [...] as ASA Class IV. The [facility] clinicalfrailty scale is 5: Mildly Frail. Diagnostic Tests: Electrocardiography: EKG was assessed by ECG. EKG was Abnormal. EKG showed STDeviation >= 0.5 mm. Medications Prior to Procedure: Sacubitril and Valsartan, Aspirin, Beta Erik, Statin and Thrombolytic (any). Indications for Diagnostic Cath: The priority of the diagnostic procedure was Emergent. Theindication for the laborer starch factory visit is ACS less than or equal [...] units of heparin were administered. A total ng163ql of Omnipaque were opened, 84cc of Omnipaque were administered api81ih of Omnipaque were wasted. Radiation: Fluoro time [...] 3.5 guiding catheter and a 3.5 Fr [place] 20 Mhz usingManual pullback. Imaging was successful. [...] 3.5 guiding catheter and a 3.5 Fr [place] 20 Mhzusing Manual pullback. Imaging was successful. Indication: IVUS performed for pre intervention planning. Findings Pre-Intervention: scattered plaque, calcification and rymj667 degrees calcification. Findings Post-Intervention: Stent not imaged [...] * POC, GLUCOSE (06/02/2024 11:31 PM EDT) [facility] Glucometer, POC 156 65 - 199 mg/dL 06/02/2024 11:31 PM EDT [facility] Comment:Supplemental ranges: <140 mg/dL before meals <180 mg/dL all other times of the day. Blood CAPILLARY BLOOD / Unknown 06/02/2024 11:31 PM EDT 06/02/2024 11:31 PM EDT Nuha Rojo MD POINT OF CARE TEST ORDERABLES [facility] [place] [address] documented in this encounter Visit Diagnoses Not [...] 2100, Last dose on Fri06/23/24 at 0900, Office Clerk recommended duration is 3 days., Routine Given [...] 8:02 PM EST 2 tablets sodium chloride ([place]) 0.65 % nasal spray 1 spray 1 [...] PRN, Starting on Fri06/02/24 at 2324, Until Miguelian 06/03/24 at 0009, Administer over 2 Minutes, [...] Discontinued, Routine 0945 (Given - Provider: Michelle Orozoc RN) 0837 (Given - Provider: Shazia Mcdonald [...] 2100, Last dose on Fri06/23/24 at 0900, Office Clerk recommended duration is 3 days., Routine 2043 [...] oral route first line., Routine sodium chloride ([place]) 0.65 % nasal spray 1 spray 1 [...] Routine documented in this encounter Care Teams Supervisor Blood Relationship Specialty Start Date End Date Mauro Berumen MD [address] [place] [address] PCP - General Family Medicine 06/02/24 documented as of this encounter
--- OUTSIDE RECORDS SUMMARY | 2024-09-03 10:37 | XMS_ITS | Clinical Summary ---
Author Organization [facility] Address [address] [place] [address] Care Team Providers Care Relationship Assoc Name Role Phone Jesu Guerra [facility] Primary Care Provider [phone] Social History Tobacco Use Types Packs/Day Years [...] 2032 Insurance [employer] MEDICARE Care Teams Relationship Assoc Relationship Specialty Start Date End Date Jesu Guerra, [place] [place] [address] PCP - General Family Medicine - Primary Care 10/03/23
--- OUTSIDE RECORDS SUMMARY | 2024-09-03 10:37 | XMS_ITS | Encounter Summary ---
Author Organization [facility] Address [facility] [place] [address] Care Team Providers Care Small Boat Engineer Name Role Phone Mauro Berumen MD Primary Care Provider [phone] Encounter Details Date Type Department Care Team (Late st Contact Info) Description 06/02/2024 Notes Only Cardiology [facility] [place] [phone] Sascha Silva MD [facility] [place] [address] Social History Tobacco Use Types Packs/Day Years Used Date Smoking Tobacco: Never Assessed [facility] Utilities Answer Date Recorded [...] any time in the past 12 m [facility], were you homeless or living [...] Data If Hospital to which patient presented= [facility]: ED Walk In Date and Time of First Medical Contact: 06/02/2024 9:20 PM Medical History (prior to current presentation) Myocardial Infarction: Yes Diabetes Mellitus: Yes Prior Percutaneous Coronary Intervention: Yes Prior Coronary Artery Bypass Graft: No Presenting Symptoms per OSH/EMS Free Text 855 PM acute on set pressure on chest. Presented to ED. Appears ashen. No contraindicationst to lytics. No cabg, 3X [place] with JENNA, most recent 5 years ago. 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 to labor representative STEMI Alert called: Yes Medical Billing Associate Activated by: Shearer Operator Initial Disposition: Admit Medical Billing Associate documented in this encounter Plan of Treatment Upcoming Encounters Date Type Department Care Team (Late st Contact Info) Description 09/29/2024 2:00 PM EST Office Visit Cardiology at [address] [address] Moi Falcon MD [facility] [place] [address] documented as of this encounter Visit Diagnoses Not on filedocumented in this encounter Care Teams Small Boat Engineer Relationship Specialty Start Date End Date Mauro Berumen MD [address] [place] [address] PCP - General Family Medicine 06/02/24 documented as of this encounter
--- OUTSIDE RECORDS SUMMARY | 2024-09-03 10:37 | XMS_ITS | Encounter Summary ---
Author Organization [facility] Address [facility] [place] [address] Care Team Providers Care Swine Extension Field Specialist Name Role Phone Mauro Berumen MD Primary Care Provider [phone] Encounter Details Date Type Department Care Team (Late st Contact Info) Description 06/02/2024 External Results Administration [facility] [place] [phone] Social History Tobacco Use Types Packs/Day Years Used Date Smoking Tobacco: Never Assessed [facility] Utilities Answer Date Recorded In the past 12 months has th e electric, gas, oil, or water [employer] threatened to shut off services in [...] any time in the past 12 m [facility], were you homeless or living in [...] 2:00 PM EST Office Visit Cardiology at [address] [address] Moi Falcon MD [facility] [place] [address] documented as of this encounter Procedures Procedure Name Priority Date/Time Associated Diagnosis Comments MISC EXTERNAL CARDIOLOGY RESULT Routine 06/02/2024 9:54 PM EDT documented in this encounter Results * External Cardiology Result (06/02/2024 9:54 PM EDT) Anatomical Region Laterality Modality Other Historical Provider EXTERNAL CARDIOLO GY RESULT documented in this encounter Visit Diagnoses Not on filedocumented in this encounter Care Teams Swine Extension Field Specialist Relationship Specialty Start Date End Date Mauro Berumen MD [address] [place] [address] PCP - General Family Medicine 06/02/24 documented as of this encounter
--- OUTSIDE RECORDS SUMMARY | 2024-09-03 10:37 | XMS_ITS | Referral Summary ---
Author Organization [facility] Address [address] [place] [address] Care Team Providers Care Real Property Appraiser Name Role Phone Jesu Guerra [facility] Primary Care Provider [phone] Social History Tobacco Use Types Packs/Day Years Used Date Smoking Tobacco: Never Assessed Sex and Gender Information Value Date Recorded Sex Assigned at Not on file Legal Sex Male 23:22 EDT Gender Identity Not on file Sexual Orientation Not on file Plan of Treatment Not on file Insurance [employer] MED[employer]ARE Care Teams Real Property Appraiser Relationship Specialty Start Date End Date Jesu Guerra, DNP [facility] [place] [address] PCP - General Family Medicine - Primary Care 10/03/23
--- OUTSIDE RECORDS SUMMARY | 2024-09-03 10:38 | XMS_ITS | Encounter Summary ---
Author Organization [facility] Address [address] [place] [address] Care Team Providers Care Director Internal Control Name Role Phone Jesu Guerra [facility] Primary Care Provider [phone] Encounter Details Date Type Department Care Team (Late st Contact Info) Description 10/31/2023 Lab Requisition [facility] Pathology & Laboratory Medicine - [facility] [address] [place] [address] Yousif Carlin PA [address] [place] [address] [address] [place] [phone] Melanocytic nevi, unspecified Social History Tobacco Use [...] management options, if applicable. 11/04/2023 9:43 EDT [facility] Final Diagnosis A. SKIN OF CHEEK, LEFT, SHAVE BIOPSY: - Seborrheic keratosis, pigmented. 11/04/2023 9:43 EDT [facility] Attestation By the signature below, the attending physician certifies that they have 1) personally conducted a gross and/or microscopic examination of the described specimen(s), and/or personally interpreted the results of laboratory testing of the described specimen(s), and 2) personally rendered or confirmed the above diagnosis. 11/04/2023 9:43 [facility] at 0943 Microscopic [...] dermis and patchy lichenoid inflammation. 11/04/2023 9:43 [facility] Clinical History Atypical nevus, history melanoma; clinical diagnosis code: D22.9 11/04/2023 9:43 [facility] Gross Description A. Received in formalin labelled with proper patient identification (initials K, K) and L cheek is a 1.3 x 1.0 x 0.1 cm irregular shave of mottled rodriguez white to dark brown skin. The margin is inked. The specimen is trisected and entirely submitted in A1. HENOK GOLDEN(ASC) 11/03/2023 9:00 11/04/2023 9:43 [facility] Performing Lab [facility] 11/04/2023 9:43 [facility] Scanned Images 11/04/2023 9:43 T [facility] Tissue SPECIMEN FROM SKIN / Unknown 10/31/2023 14:10 EDT 10/31/2023 23:24 EDT us Yousif WHITING PATHOLOGY ORDERABLES Final Result [facility] [address] [place] [address] documented in this encounter Visit Diagnoses Diagnosis Melanocytic nevi, unspecified documented in this encounter Care Teams Director Internal Control Relationship Specialty Start Date End Date Jesu Guerra, DNP [address] [place] [address] PCP - General Family Medicine - Primary Care 10/03/23 documented as of this encounter
== END 2024-09-03 23:59 | disposition home or self-care (01) ==
LOC: CR 10:27
PROVIDERS: PCP Family Medicine; Visit Provider Internal Medicine Cardiovascular Disease
DX: I21.3 ST elevation (STEMI) myocardial infarction of unspecified site (principal); Z51.89 Encounter for other specified aftercare
CPT/HCPCS: S9472

== ENCOUNTER → 2024-09-28 08:54 | Outpatient (BNVA) | payer MEDICARE, SELFPAY | PROVIDERS: PCP Family Medicine; Referring Provider Family Medicine; Visit Provider Podiatrist | DX: E11.51 Type 2 diabetes mellitus with diabetic peripheral angiopathy without gangrene (principal); B35.1 Tinea unguium; R09.89 Other specified symptoms and signs involving the circulatory and respiratory systems; R60.0 Localized edema; L65.9 Nonscarring hair loss, unspecified; R23.8 Other skin changes; L60.2 Onychogryphosis; L60.8 Other nail disorders; L85.8 Other specified epidermal thickening | CPT/HCPCS: 11721 ==

== ENCOUNTER 2024-10-01 10:11 | Outpatient (RCR) | payer MEDICARE, SELFPAY ==
--- OUTSIDE RECORDS SUMMARY | 2024-09-08 10:54 | XMS_ITS | Encounter Summary ---
Author Organization [facility] Address [facility] [place] [address] Care Team Providers Care Software Engineering Analyst Name Role Phone Mauro Berumen MD Primary Care Provider [phone] Encounter Details Date Type Department Care Team (Late st Contact Info) Description 08/13/2024 External Results Transfer Center [facility] [place] [phone] Social History Tobacco Use Types Packs/Day Years Used Date Smoking Tobacco: Every Day Cigarettes Smokeless Tobacco: Never [facility] Utilities Answer Date Recorded In the past 12 months has th e electric, gas, oil, or water [employer] threatened to shut off services in your [...] living in a half-way (including now)? No 08/16/2024 IPV Inpatient Questions [...] PM EST Office Visit Cardiology at [address] [address] Moi Falcon MD [facility] [place] [address] documented as of this encounter Procedures Procedure Name Priority Date/Time Associated Diagnosis Comments MISC EXTERNAL CARDIOLOGY RESULT Routine 08/13/2024 1:38 PM EST documented in this encounter Results * External Cardiology Result (08/13/2024 1:38 PM EST) Anatomical Region Laterality Modality Other Historical Provider EXTERNAL CARDIOLO GY RESULT documented in this encounter Visit Diagnoses Not on filedocumented in this encounter Care Teams Software Engineering Analyst Relationship Specialty Start Date End Date Mauro Berumen MD [address] [place] [address] PCP - General Family Medicine 06/02/24 documented as of this encounter
--- OUTSIDE RECORDS SUMMARY | 2024-09-08 10:54 | XMS_ITS | Encounter Summary ---
Author Organization [facility] Address [facility] [place] [address] Care Team Providers Care Client Service Consultant Name Role Phone Mauro Berumen MD Primary Care Provider [phone] Encounter Details Date Type Department Care Team (Late st Contact Info) Description 08/13/2024 Telephone Cardiology at [address] [place] [phone] Katy Maurer APRN [facility] [place] [place] [address] Social History Tobacco Use Types Packs/Day Years Used Date Smoking Tobacco: Every Day Cigarettes Smokeless Tobacco: Never [facility] Utilities Answer Date Recorded In the [...] Notes * Telephone Encounter - Katy Maurer, VOLLEYBALL ASSEMBLER - 08/13/2024 2:52 PM EST Images from the original note were not included. 08/13/2024 Arturo Mehta Initial Contact Date: 08/13/2024 Initial contact time: 2:52 PM Referring Provider: Dr. 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 Imaging was [...] 3.5 guiding catheter and a 3.5 Fr [place] [place] 20 Mhz using Manual pullback. 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 It is unclear if arrhythmia is culprit for pre-syncopal episode. [facility] will attempt to obtain TTE to evaluate EF and new WMAs if TTE available. I have advised for gentle IV NSS bolus with 250mL fluid in the setting of hypotension and creatinine 1.5 with pre-syncopal symptoms. I have encouraged to hold 20 mg daily Lasix as there is no evidence of fluid overload onexamination. Plan for transfer to [facility] cardiology med/surg level of care accepting for [...] 2:00 PM EST Office Visit Cardiology at [address] [address] Moi Falcon MD [facility] [place] [address] documented as of this encounter Visit Diagnoses Not on filedocumented in this encounter Care Teams Client Service Consultant Relationship Specialty Start Date End Date Mauro Berumen MD [address] [place] [address] PCP - General Family Medicine 06/02/24 documented as of this encounter
--- OUTSIDE RECORDS SUMMARY | 2024-09-08 10:54 | XMS_ITS | Encounter Summary ---
Author Organization [facility] Address [facility] [place] [place] [address] Care Team Providers Care City Weighmaster Name Role Phone Mauro Berumen MD Primary Care Provider [phone] Encounter Details Date Type Department Care Team (Late st Contact Info) Description 07/20/2024 Notes Only Cardiology at [address] [place] [address] Esha Jones RN Social History Tobacco Use Types Packs/Day Years Used Date Smoking Tobacco: Every Day Cigarettes Smokeless Tobacco: Never [facility] Utilities Answer Date Recorded In [...] in the past 12 m [facility], were you homeless or living in a [...] BGL was measured to be 40. Nurse Insurance Risk Surveyor Chelsi administered chewable glucose tablets while this [...] 2:00 PM EST Office Visit Cardiology at [address] [phone] Moi Falcon MD [facility] [place] [address] documented as of this encounter Visit Diagnoses Not on filedocumented in this encounter Care Teams City Weighmaster Relationship Specialty Start Date End Date Mauro Berumen MD [address] [place] [address] PCP - General Family Medicine 06/02/24 documented as of this encounter
--- OUTSIDE RECORDS SUMMARY | 2024-09-08 10:54 | XMS_ITS | Encounter Summary ---
Author Organization [facility] Address [facility] [place] [address] Care Team Providers Care Art Conservator Name Role Phone Mauro Berumen MD Primary Care Provider [phone] Reason for Visit * Auth/Cert (Routine) Specialty Diagnoses / Procedures Referred By Controdolfo t Referred To Contact Diagnoses Elevated troponin NSTEMI (non-ST elevated myocardial infarction) Pre-syncope s/p CABG Procedures EMERGENCY IPI Evelyn Mckinnon MD [facility] [place] [address] [facility] Referral ID Status Reason Start Date Expiration Date Visits Re quested Visits Authorized [id number] 1 1 Encounter Details Date Type Department Care Team (Latest Contact Info) Description 08/14/2024 7:42 PM EST - 08/16/2024 2:48 PM EST Hospital Encounter Heart and Vascular Unit Level 3 [place] [address] Jim Benites MD [facility] [place] [address] Evelyn Mckinnon MD [facility] [place] [address] Elevated troponin; Chest pain, unspecified type Discharge Disposition: Home Social History Tobacco Use Types Packs/Day Years Used Date Smoking Tobacco: Former Cigarettes Smokeless Tobacco: Never Tobacco Cessation:Counseling Given: Not Answered [facility] Utilities Answer Date Recorded In the past 12 months has [facility] [employer], oil, or water [employer]yl[employer] [place] threatened to shut off services in your [...] in the past 12 m [facility], were you homeless or living in a jail (including now)? No 08/16/2024 IPV Inpatient Questions [...] George Mehta Patient Age: 69 y.o. Language: Malawian Admit date: 08/14/2024 Discharge date and time: [...] Provider Contact Information: Evelyn Mckinnon MD Pager #[phone] Discharge Diagnoses (Hospital Problems) and Secondary Diagnoses (Chronic Problems): Active Hospital Problems Diagnosis Elevated troponin NSTEMI (non-ST elevated myocardial infarction) Resolved Hospital Problems No resolved problems to display. 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 The patient was transported to the [facility] in a critical but stable condition [...] of 8AM-5PM please call the Cardiology Clinic [phone] to speak with a nurse. All other hours please call the Hospital Insulation Helper [phone] and ask to speak to the cardiovascular hospitalist on-call. For any emergent questions, please call 911 or visit your nearest emergency department/urgent care center Diet-diabetic, cardiac diet, 2 g salt and 2 L fluid restriction per day Activity-as tolerated Follow up Appointments: Doctor Where Phone # Date Time PCP Mauro Berumen MD [address] [place] [address] Aug 23Friday 11.20 AM Secret Code Expert [facility] Cardiology 4A Clinic [phone] Sep 29, Friday 2 PM (arrive at 1.40 PM) Home oxygen therapy: N/A Arrangements for VNA/home care: N/A General Instructions None Future Appointments and Orders Future Appointments and Orders Future Appointments Provider Department Dept Phone 09/29/2024 2:00 PM Moi Falcon MD Cardiology at [facility] Arrive at: Therapy Technician Area [phone] Discharge References/Attachments Orthostatic Hypotension (Malawian) Metoprolol Extended Release Oral Capsule (METOPROLOL SUCCINATE EXTENDED-RELEASE CAPSULE - ORAL) (Malawian) Nitroglycerin Sublingual Tablet (NITROGLYCERIN - SUBLINGUAL) (Malawian) More than 30 minutes were spent on this discharge including documentation, [id number] time with patient, patient education, bordereau clerk, and coordination pharmacy, follow-up and other [...] of 8AM-5PM please call the Cardiology Clinic [phone] to speak with a nurse. All other hours please call the Hospital Insulation Helper [phone] and ask to speak to the cardiovascular hospitalist on-call. For any emergent questions, please call 911 or visit your nearest emergency department/urgent care center Diet-diabetic, cardiac diet, 2 g salt and 2 L fluid restriction per day Activity-as tolerated Follow up Appointments: Doctor Where Phone # Date Time PCP Mauro Berumen MD [address] [place] [address] Aug 23Friday 11.20 AM Secret Code Expert [facility] Cardiology 4A Clinic [phone] Sep 29Friday 2 PM (arrive at 1.40 PM) Home oxygen therapy: N/A Arrangements for VNA/home care: N/A * Attachments The following attachments cannot be sent through Care Everywhere. * Orthostatic Hypotension (Malawian) * Metoprolol Extended Release Oral Capsule (METOPROLOL SUCCINATE EXTENDED- RELEASE CAPSULE - ORAL) (Malawian) * Nitroglycerin Sublingual Tablet (NITROGLYCERIN - SUBLINGUAL) (Malawian) documented in this encounter Medications at Time [...] Pt seen for use of NIV at [facility] is semi independent with its use. [...] 10:24 AM EST CV HOSPITALIST 1 - [facility] DAILY PROGRESS NOTE Page [phone] to reach a provider 24/02 Admit Date: [...] of this mass after consultation with other switchboard operator assistant experts and the decision was made by [...] area. The patient was transported to the [facility] in a critical but stable condition Assessment: Geogre Mehta is a 69 y.o. male with [...] based on the results. Disposition: Discharge Location: [facility] Basic Mobility Raw Score: 24 PT: OT: PCP Mauro Berumen MD [phone] Evelyn Mckinnon MD 08/15/2024 10:42 AM Addendum [...] Rehab for the first time ever, at [facility] ([place], [place]) today, on Friday morning (08/13/2024, 10:00am) [...] me from the Cardiac Rehab Office at [facility] ([place], [place]) to the ER at [facility] ([place], [place]) to get checked out and the [...] had my triple bypass heart surgery at [facility] on 06/14/2024, 8:48am with [facility] Cardiac Surgeon Dr. Bobby Loja, I should go to [facility] and see Dr. Loja again. I remember when I was at [facility] back in June last year (2023), and [...] of left parietal region, s/p resection (2017, [facility], [place], [place]), insulin-dependent DM2 on aspart insulin 20 units SQ tid before meals, tresiba insulin 30 units SQ daily, metformin 1000mg PO bid, and empagliflozin 25mg PO daily, with HbA1c 7.1% (06/06/2024, 3:33am), CAD s/p acute MT #1 (09/2003, s/p stent x 1, [facility], [place], [place]). acute MT #2 (03/2018, s/p stent x 1, [place], [place]). acute MT #3 (01/2019, s/p stent x 1, [place], [place]). acute MT #4 (06/03/24,s/p 3vCABG, [facility], [place], [place])(CT Surgeon Dr. Bobby Loja, 06/14/2024, 8:48am). Cf., troponin-T #1 208 ng/L (06/03/2024, 2:13am). Cf., troponin-T #2 218 ng/L (06/03/2024, 3:07am). Cf., troponin-T #3 254 ng/L (06/03/2024, 5:11am). Cf., troponin-T #4 284 ng/L (06/03/2024, 7:39am). Cf., troponin-T #5 289 ng/L (06/03/2024, 8:27am). Cf., EKG (06/03/2024, 1:45am): atrial-sensing, ventricle-pacing @ 63, TX 168, QTC 409 (by my review). Patient subsequently developed chronic systolic CHF with reduced LVEF 30-35% (as noted on 06/14/2024, 7:20am KAREN, [facility] CARDS Dr. Hosea Ardon), and chronic diastolic CHF, for which patient underwent AICD (06/2019, [facility], [place], [place]). Patient reports no paroxysmal nocturnal dyspnea, maintains a dry baseline weight of 210 pounds, and sleeps on a regular bed with 1 pillow all the time. Patient subsequently underwent left heart catheterization (06/02/2024, 12:42am, [facility] InterventionalCARDS Dr. Nuha Shen) which revealed: Hemodynamics: [...] 3.5 guiding catheter and a 3.5 Fr [facility] 20 Mhz using Manual pullback. Imaging was [...] 3.5 guiding catheter and a 3.5 Fr [facility] 20 Mhz using Manual pullback. Imaging was [...] be managed with medical therapy. (As per [facility] Interventional CARDS Dr. Nuha Shen). Patient subsequently underwent TTE (06/03/2024, 2:23am, [facility] CARDS fellow Dr. Sascha Silva) whichrevealed: Left [...] 6-14 large Aneurysmal 15-16 diffuse (As per [facility] CARDS fellow Dr. Sascha Silva). Patient subsequently underwent TTE (06/03/2024, 8:46am, [facility] CARDS Dr. Jonnie Jordan) which revealed: Left [...] elevated left ventricular filling pressure). (As per [facility] CARDS Dr. Jonnie Jordan). Patient subsequently underwent cardiac catheterization (06/13/2024, 9:15am, [facility] Interventional CARDS Dr. Nuha Shen), which revealed: [...] require modification of this regimen. (as per [facility] Interventional CARDS Dr. Nuha Shen). Patient subsequently underwent KAREN (06/14/2024, 7:20am, [facility] CARDS Dr. Hosea Ardon), which revealed: KAREN [...] of this mass after consultation with other switchboard operator assistant experts and the decision was made by surgeon to explore the mass. 8. No significant valvular disease. Patient subsequently underwent biopsy (06/14/2024, 9:53am) of unusual fibrinous mass at the orifice of the left atrial appendage (as noted on 06/14/2024, 7:20am, [facility] CARDS Dr. Hosea Ardon): A. Soft Tissue Mass, Mediastinal Mass, Excision: - Atrophic thymic tissue B. Heart, Atrial Appendage, Left, Excision: - Mild myocyte hypertrophy (as per [facility] Pathologist Dr. Sandra Salas). As noted above, patient underwent 3v CABG, excision of mediastinal tumor, and exploration / oversewof atrial appendage (06/14/2024, 8:48am, [facility] Cardiac Surgeon Dr. Bobby Loja). Patient now reports: I was at Cardiac Rehab for the first time ever, at [facility] ([place], [place]) today, on Friday morning (08/14/2024, 10:00am) [...] me from the Cardiac Rehab Office at [facility] ([place], [place]) to the ER at [facility] ([place]) to get checked out and the [...] had my triple bypass heart surgery at [facility] 06/14/2024, 8:48am with [facility] Cardiac Surgeon Dr. Bobby Loja, I should go to [facility] and seeDr. Loja again. I remember when I was at [facility] back in June last year (2023), and [...] the patient on observation date 08/14/2024. In [facility] ER ([place], [place]), patient was afebrile at 37.0 degrees Celsius, HR 80, RR 20, O2 sat 97% on room air, and BP 117/61 (08/13/2024, 11:13am). Exam was noted for a clear and non-tender chest. Labs in [facility] ER ([place], [place]) included: WBC 9.25, N69 L19 M [...] 314 ng/L (08/14/2024, 6:00am). Additional testing in [facility] ER ([place], [place]) included: EKG (actual tracing not present in papers/documents transferred from [facility] ER ([place], [place]): Workup in the ED showed an EKG with pacing without T wave or ST segment changes pointing to occlusive cardiac disease; noticeable T wave inversion in multiple leads infero-lateral leads as seen prior. (as per [facility] Viry Adele Temple, MEDICARE NURSE). Patient was subsequently diagnosed with the following conditions @ [facility] ER ([place], [place]) on 08/13/2024: R/O acute NSTEMI. Acute [...] 08/14/2024, 8:43am). 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 Patient is retired with physical disability after sustaining his third acute MT (01/2019, s/p stent x 1, [place], [place]), and now suffers from chronic systolic CHF with reduced LVEF 30- 35% (as noted on 06/14/2024, 7:20am KAREN, [facility] CARDS Dr. Hosea Ardon), and chronic diastolic CHF, for which patient underwent AICD (06/2019, [place], [place]). Patient was to his first for 4 years before divorce; together, they have a 45 years old son, who is alive and well. Patient is to his second for 20 years; together, they have no children living or . Patient lives at home with his second in their own home in [place], [place], and ambulates without assistance from cane, walker, or wheelchair. Patient can drive a car independently. Patient comes to [facility] HVU bd #373-A as a direct ambulance transfer from [facility] ([place], [place]) today, 08/14/2024. REVIEW OF SYSTEMS: Review [...] EKG (08/14/2024, 11:57pm): atrial-sensing, ventricle-pacing @ 80, TX 188, QTC 449 (by my review). LABS: [...] of left parietal region, s/p resection (2017, [facility], [place], [place]), insulin-dependent DM2 on aspart insulin 20 units SQ tid before meals, tresiba insulin 30 units SQ daily, metformin 1000mg PO bid, and empagliflozin 25mg PO daily, with HbA1c 7.1% (06/06/2024, 3:33am), CAD s/p acute MT #1 (09/2003, s/p stent x 1, [facility], [place], [place]). acute MT #2 (03/2018, s/p stent x 1, [place], [place]). acute MT #3 (01/2019, s/p stent x 1, [place], [place]). acute MT #4 (06/03/24,s/p 3vCABG, [facility], [place], [place])(CT Surgeon Dr. Bobby Loja, 06/14/2024, 8:48am). Cf., troponin-T #1 208 ng/L (06/03/2024, 2:13am). Cf., troponin-T #2 218 ng/L (06/03/2024, 3:07am). Cf., troponin-T #3 254 ng/L (06/03/2024, 5:11am). Cf., troponin-T #4 284 ng/L (06/03/2024, 7:39am). Cf., troponin-T #5 289 ng/L (06/03/2024, 8:27am). Cf., EKG (06/03/2024, 1:45am): atrial-sensing, ventricle-pacing @ 63, TX 168, QTC 409 (by my review). Patient subsequently developed chronic systolic CHF with reduced LVEF 30-35% (as noted on 06/14/2024, 7:20am KAREN, [facility] CARDS Dr. Hosea Ardon), and chronic diastolic CHF, for which patient underwent AICD (06/2019, [facility], [place], [place]). Patient reports no paroxysmal nocturnal dyspnea, maintains a dry baseline weight of 210 pounds, and sleeps on a regular bed with 1 pillow all the time. Patient subsequently underwent left heart catheterization (06/02/2024, 12:42am, [facility] InterventionalCARDS Dr. Nuha Shen) which revealed: Hemodynamics: [...] 3.5 guiding catheter and a 3.5 Fr [facility] 20 Mhz using Manual pullback. Imaging was [...] 3.5 guiding catheter and a 3.5 Fr [facility] 20 Mhz using Manual pullback. Imaging was [...] be managed with medical therapy. (As per [facility] Interventional CARDS Dr. Nuha Shen). Patient subsequently underwent TTE (06/03/2024, 2:23am, [facility] CARDS fellow Dr. Sascha Silva) whichrevealed: Left [...] 6-14 large Aneurysmal 15-16 diffuse (As per [facility] CARDS fellow Dr. Sascha Silva). Patient subsequently underwent TTE (06/03/2024, 8:46am, [facility] CARDS Dr. Jonnie Jordan) which revealed: Left [...] elevated left ventricular filling pressure). (As per [facility] CARDS Dr. Jonnie Jordan). Patient subsequently underwent cardiac catheterization (06/13/2024, 9:15am, [facility] Interventional CARDS Dr. Nuha Shen), which revealed: [...] require modification of this regimen. (as per [facility] Interventional CARDS Dr. Nuha Shen). Patient subsequently underwent KAREN (06/14/2024, 7:20am, [facility] CARDS Dr. Hosea Ardon), which revealed: KAREN [...] of this mass after consultation with other switchboard operator assistant experts and the decision was made by surgeon to explore the mass. 8. No significant valvular disease. Patient subsequently underwent biopsy (06/14/2024, 9:53am) of unusual fibrinous mass at the orifice of the left atrial appendage (as noted on 06/14/2024, 7:20am, [facility] CARDS Dr. Hosea Ardon): A. Soft Tissue Mass, Mediastinal Mass, Excision: - Atrophic thymic tissue B. Heart, Atrial Appendage, Left, Excision: - Mild myocyte hypertrophy (as per [facility] Pathologist Dr. Sandra Salas). As noted above, patient underwent 3v CABG, excision of mediastinal tumor, and exploration / oversewof atrial appendage (06/14/2024, 8:48am, [facility] Cardiac Surgeon Dr. Bobby Loja). Patient now reports: I was at Cardiac Rehab for the first time ever, at [facility] ([place], [place]) today, on Friday morning (08/14/2024, 10:00am) [...] me from the Cardiac Rehab Office at [facility] ([place], [place]) to the ER at [facility] ([place]) to get checked out and the [...] had my triple bypass heart surgery at [facility] 06/14/2024, 8:48am with [facility] Cardiac Surgeon Dr. Bobby Loja, I should go to [facility] and seeDr. Loja again. I remember when I was at [facility] back in June last year (2023), and the doctors tried cardiac cath, but they couldn't do it because they said my arteries were too calcified, and that I had to get the triple bypass heart surgery instead. I feel fine now. The lightheadedness and foggy vision never came back. Patient was subsequently diagnosed with the following conditions @ [facility] ER ([place], [place]) on 08/13/2024: 1. R/O acute NSTEMI. [...] 08/14/2024, 8:43am). Patient was subsequently transferred from [facility] ER ([place], [place]) [facility] to undergo TTE [...] PO x 1 dose (08/14/2024, 8:30am) in [facility] ER ([place]). Patient will not continue with home-scheduled metformin 1000mg PO bid [facility]Agiven the potential for metformin to [...] scale q6, for any procedure(s) recommended by [facility] Cardiac Surgeon Dr. Bobby Loja. To address #4, patient was observed in [facility] ER. On arrival to [facility] HVU bed #373-A, I ordered iron studies (e.g., iron, TIBC, and ferritin) in this colonoscopy-naive patient. Moreover, I encouraged patient to follow up with his PCP Dr. Mauro Berumen ([place], [place]) within 5 days of hospital discharge, [...] melanoma ofleft parietal region, s/p resection (2017, [facility], [place], [place]), and who is now 69 years [...] Provider: Octaviano Quiñones MD Provider #: pager #[phone] 08/14/2024 documented in this encounter Miscellaneous Notes [...] N/A Patient is insured through: Primary Insurance: [employer] Payor: [employer] Secondary Insurance: N/A Prescription Coverage: Yes (managed medicare) This plan was formulated with input from patient and team. All are in agreement with plan. * Initial Assessments - Vargas Delong RN - 08/16/2024 1:10 PM EST Office of Care Management Initial Assessment Vargas Delong RN reviewed record and discussed patient with Care Team. Source of Information: Team, bedside nurse, medical record, and Patient CM/CARE TRANSITIONS NURSE met with patient face to face. Introduced self/reviewed role; services accepted. Admitted From: Transfer from another hospital Location: [facility] Reason for Hospitalization: I went to cardiac [...] 180 days) Any patient receiving care in [place] must abide by [place] law. The hierarchy [...] (i) The agent with financial power of agricultural research engineer or a conservator appointed in accordance with [...] homeless or living in a jail (including now)?: No In the past 12 months has the [employer], [employer], or water [employer] [place] threatened to shut off services in your [...] comments) (CPAP) Home Address confirmed as: [address] [place] [address] Social & Family Supports: All names listed [...] Specific Information: N/A Health/Prescription Coverage: Primary Insurance: [employer] (sent to [employer] for scanning into pt's chart) Payor: [employer] Secondary Insurance: N/A ONLY if patient has Medicare A&B - Does this patient have secondary insurance?: ([email or web address] managed medicare (sent to [employer] for scanning into chart)) ; Prescription Coverage: Yes (managed medicare) Are you financially able to cover the cost / copay of your medications?: Yes Preferred Pharmacy: [id number] - [place], [place] - [address] [address] Status: Patient is a : No Primary Care Provider confirmed: Mauro Berumen MD [phone] Patient/Caregiver Goals of Treatment: home when MR Potential Needs for Transition of Care: none Agency Referrals: pending clinical course Transportation: no concerns Transportation Anticipated: family or friend will provide Medications Anticipated: patient able to package pick up, family/friend will package pick up Concerns to be Addressed: no discharge needs [...] 2:00 PM EST Office Visit Cardiology at [address] [place] [address] Moi Falcon MD [facility] [place] [address] documented as of this encounter Procedures Procedure [...] (ABNORMAL) POC, GLUCOSE (08/16/2024 12:03 PM EST) [facility] Glucometer, POC 263(H) 65 - 199 mg/dL 08/16/2024 12:03 PM EST [facility] Comment:Supplemental ranges: <140 mg/dL before meals <180 mg/dL all other times of the day. Blood CAPILLARY BLOOD / Unknown 08/16/2024 12:03 PM EST 08/16/2024 12:03 PM EST Evelyn Mckinnon MD POINT OF CARE TEST O RDERABLES Performing Organization Address [facility] de Phone Number [facility] [place] [address] * EKG 12 Lead (08/16/2024 8:44 AM EST) Ventricular rate 80 BPM MUSE SYSTEM Atrial Rate 80 BPM MUSE SYSTEM P-R Interval 180 ms MUSE SYSTEM QRS Duration 90 ms MUSE SYSTEM Q-T Interval 374 ms MUSE SYSTEM QTC Calculated (Bezet) 431 ms MUSE SYSTEM Calculated P [place] 63 degrees MUSE SYSTEM Calculated R [place] 22 degrees MUSE SYSTEM Calculated T [place] 129 degrees MUSE SYSTEM INTERPRETATION AV dual-paced rhythm Abnormal ECG When compared with ECG of 14-AUG-2024 23:57, No significant change was found Confirmed by MD JEAN, KRISS ([id number]) on 08/16/2024 9:37:14 AM MUSE SYSTEM 08/16/2024 8:44 AM EST 08/16/2024 9:37 AM EST Evelyn Mckinnon MD ECG ORDERABLES Performing Organization Address [facility] de Phone Number MUSE SYSTEM * POC, GLUCOSE (08/16/2024 8:20 AM EST) Glucometer, POC 164 65 - 199 mg/dL 08/16/2024 8:20 AM EST [facility] Comment:Supplemental ranges: <140 mg/dL before meals <180 mg/dL all other times of the day. Blood CAPILLARY BLOOD / Unknown 08/16/2024 8:20 AM EST 08/16/2024 8:20 AM EST Evelyn Mckinnon MD POINT OF CARE TEST O RDERAPIETER [facility] [place] [address] * (ABNORMAL) CBC (with Diff) (08/16/2024 12:32 [...] EST Octaviano Quiñones MD HEMATOLOGY ORDERABLE S [facility] [place] [address] * Heparin (unfractionated) Level (08/16/2024 12:32 AM EST) Pathologist [facility] UF Heparin 0.32 IU/mL 08/16/2024 12:55 AM EST [facility] Comment: Heparin (anti-Xa) levels [...] EST Octaviano Quiñones MD HEMATOLOGY ORDERABLE S [facility] [place] [address] * Magnesium (08/16/2024 12:32 AM EST) Pathologist [facility] Magnesium 0.85 0.69 - 1.07 mMol/L 08/16/2024 1:12 AM EST [facility] Blood VENOUS BLOOD SPECIMEN / Unknown Venipuncture / Unknown 08/16/2024 12:32 AM EST 08/16/2024 12:41 AM EST Evelyn Mckinnon MD CHEMISTRY ORDERABLES [facility] [place] [address] * (ABNORMAL) Basic Metabolic Panel (08/16/2024 12:32 AM [facility]) Glucose 210(H) 65 - 199 mg/dL 08/16/2024 [...] Mckinnon MD CHEMISTRY ORDERABLES Performing Organization Address [facility]/[place] Co de Phone Number [facility] [place] [address] * POC, GLUCOSE (08/15/2024 8:09 PM EST) Glucometer, POC 129 65 - 199 mg/dL 08/15/2024 8:10 PM EST [facility] Comment:Supplemental ranges: <140 mg/dL before meals <180 mg/dL all other times of the day. Blood CAPILLARY BLOOD / Unknown 08/15/2024 8:09 PM EST 08/15/2024 8:10 PM EST Evelyn Mckinnon MD POINT OF CARE TEST O RDERABLES Performing Organization Address [facility] de Phone Number [facility] [place] [address] * Heparin (unfractionated) Level (08/15/2024 7:06 PM EST) UF Heparin 0.31 IU/mL 08/15/2024 7:21 PM EST [facility] Comment: Heparin (anti-Xa) levels [...] Performing Organization Address [facility]/[place] Co de Phone Number [facility] [place] [address] * POC, GLUCOSE (08/15/2024 5:08 PM EST) Glucometer, POC 151 65 - 199 mg/dL 08/15/2024 5:08 PM EST [facility] Comment:Supplemental ranges: <140 mg/dL before meals <180 mg/dL all other times of the day. Blood CAPILLARY BLOOD / Unknown 08/15/2024 5:08 PM EST 08/15/2024 5:09 PM EST Evelyn Mckinnon MD POINT OF CARE TEST O NIKA Performing Organization Address [facility] Co de Phone Number [facility] [place] [address] * POC, GLUCOSE (08/15/2024 3:29 PM EST) Glucometer, POC 168 65 - 199 mg/dL 08/16/2024 7:11 AM EST [facility] Comment:Supplemental ranges: <140 mg/dL before meals <180 mg/dL all other times of the day. Blood CAPILLARY BLOOD / Unknown 08/15/2024 3:29 PM EST 08/16/2024 7:11 AM EST Evelyn Mckinnon MD POINT OF CARE TEST O NIKA Performing Organization Address [facility] Co de Phone Number [facility] [place] [address] * ECHO COMPLETE W CONTRAST (08/15/2024 12:57 PM EST) EF 31 HEARTLAB SYSTEM Anatomical Region Laterality Modality Cardiac Other 08/15/2024 12:0 0 PM EST Narrative 08/15/2024 1:42 PM EST [address] [place] [address] ? Echocardiogram Report Name: GEORGE MEHTA ?Study Date: 08/15/2024 12:00 PMBP: 118/72 mmHg : 1955 ? Height: 168 cm ? Account: [id number] Age: 69 yrs ? Weight: 93 kg Gender: Male ?BSA: 2.0 m2 Ordering Physician: OCTAVIANO QUIÑONES Referring Physician: ANA COLON Performed By: Sandra Worthy RDCS Reason For Study: Elevated troponin Exam Location: [facility]. Interpretation Summary 1. Left ventricular systolic function [...] side images at end of report). Procedure Complete-[id number]. Image enhancement Definity was used for left [...] Note Jim Benites MD - 08/15/2024 [address] [place] [address] Echocardiogram Report Name: GEORGE MEHTA Study Date: 2:00 PMBP: 118/72 mmHg : 1955 Height: 168 cm Account: [id number] Age: 69 yrs Weight: 93 kg Gender: Male BSA: 2.0 m2 Ordering Physician: OCTAVIANO QUIÑONES Referring Physician: ANA COLON Performed By: Sandra Worthy RDCS Reason For Study: Elevated troponin Exam Location: [facility]. Interpretation Summary 1. Left ventricular systolic function [...] side images at end of report). Procedure Complete-[id number]. Image enhancement Definity was used for left [...] POC, GLUCOSE (08/15/2024 12:48 PM EST) Pathologist [facility] Glucometer, POC 205(H) 65 - 199 mg/dL 08/15/2024 12:48 PM EST [facility] Comment:Supplemental ranges: <140 mg/dL before meals <180 mg/dL all other times of the day. Blood CAPILLARY BLOOD / Unknown 08/15/2024 12:48 PM EST 08/15/2024 12:48 PM EST Evelyn Mckinnon MD POINT OF CARE TEST O RDERABLES [facility] [place] [address] * Heparin (unfractionated) Level (08/15/2024 11:32 AM EST) [facility] UF Heparin 0.29 IU/mL 08/15/2024 11:48 AM EST [facility] Comment: Heparin (anti-Xa) levels [...] EST Octaviano Quiñones MD HEMATOLOGY ORDERABLE S [facility] [place] [address] * (ABNORMAL) POC, GLUCOSE (08/15/2024 11:15 AM EST) Glucometer, POC 253(H) 65 - 199 mg/dL 08/16/2024 7:11 AM EST [facility] Comment:Supplemental ranges: <140 mg/dL before meals <180 mg/dL all other times of the day. Blood CAPILLARY BLOOD / Unknown 08/15/2024 11:15 AM EST 08/16/2024 7:11 AM EST Evelyn Mckinnon MD POINT OF CARE TEST Abimael MAHER Performing Organization Address City/[facility]/ZIP Co de Phone Number [facility] [place] [address] * POC, GLUCOSE (08/15/2024 8:01 AM EST) Glucometer, POC 191 65 - 199 mg/dL 08/15/2024 8:01 AM EST [facility] Comment:Supplemental ranges: <140 mg/dL before meals <180 mg/dL all other times of the day. Blood CAPILLARY BLOOD / Unknown 08/15/2024 8:01 AM EST 08/15/2024 8:01 AM EST Evelyn Mckinnon MD POINT OF CARE TEST O NIKA [facility] [place] [address] * (ABNORMAL) Basic Metabolic Panel (08/15/2024 5:00 [...] Ino MD CHEMISTRY ORDERABLES Performing Organization Address City/[facility]/ZIP Co de Phone Number [facility] [place] [address] * (ABNORMAL) Troponin - Single (08/15/2024 5:00 AM EST) Troponin-T, High Sensitivity 27(H) <=22 ng/L 08/15/2024 5:33 AM EST [facility] Comment: This patient's troponin [...] troponin value can be found in the [facility] Laboratory Test Catalog Troponin - https://[facility]-.testcatalog.org/catalogs/565/files/86937 Reference: [place] Definition of Myocardial Infarction. Journal of the [place] [employer] 2018;72:6957-0780 Blood VENOUS BLOOD SPECIMEN / Unknown Venipuncture / Unknown 08/15/2024 5:00 AM EST 08/15/2024 5:04 AM EST Octaviano Quiñones MD CHEMISTRY ORDERABLES [facility] [place] [address] * Heparin (unfractionated) Level (08/15/2024 4:59 AM EST) UF Heparin 0.29 IU/mL 08/15/2024 5:16 AM EST [facility] Comment: Heparin (anti-Xa) levels [...] EST Octaviano Quiñones MD HEMATOLOGY ORDERABLE S [facility] [place] [address] * Ferritin (08/15/2024 4:59 AM EST) Ferritin 70 31 - 409 ng/ml 08/15/2024 6:09 AM EST [facility] Blood VENOUS BLOOD SPECIMEN / Unknown Venipuncture / Unknown 08/15/2024 4:59 AM EST 08/15/2024 5:04 AM EST Octaviano Quiñones MD CHEMISTRY ORDERABLES [facility] [place] [address] * (ABNORMAL) CBC (with Diff) (08/15/2024 4:59 [...] EST Octaviano Quiñones MD HEMATOLOGY ORDERABLE S [facility] [place] [address] * EKG 12 Lead (08/14/2024 11:57 PM EST) Ventricular rate 80 BPM MUSE SYSTEM Atrial Rate 80 BPM MUSE SYSTEM P-R Interval 188 ms MUSE SYSTEM QRS Duration 98 ms MUSE SYSTEM Q-T Interval 390 ms MUSE SYSTEM QTC Calculated (Bezet) 449 ms MUSE SYSTEM Calculated P [place] 57 degrees MUSE SYSTEM Calculated R [place] 78 degrees MUSE SYSTEM Calculated T [place] -177 degrees MUSE SYSTEM INTERPRETATION AV dual-paced rhythm Abnormal ECG When compared with ECG of 14-JUN-2024 14:46, No significant change was found Confirmed by MD Nikki, Jonnie Godoy ([id number]) on 08/15/2024 12:30:01 PM MUSE SYSTEM 08/14/2024 11:5 7 PM EST 08/15/2024 12:30 PM EST Octaviano Quiñones MD ECG ORDERABLES Performing Organization Address City/[facility]/ZIP Co de Phone Number MUSE SYSTEM * (ABNORMAL) POC, GLUCOSE (08/14/2024 11:56 PM EST) Glucometer, POC 229(H) 65 - 199 mg/dL 08/14/2024 11:56 PM EST [facility] Comment:Supplemental ranges: <140 mg/dL before meals <180 mg/dL all other times of the day. Blood CAPILLARY BLOOD / Unknown 08/14/2024 11:56 PM EST 08/14/2024 11:56 PM EST Evelyn Mckinnon MD POINT OF CARE TEST O RDERABLES Performing Organization Address City/[facility]/ZIP Co de Phone Number [facility] [place] [address] * (ABNORMAL) Iron and TIBC (08/14/2024 9:40 PM EST) Iron 62 45 - 160 mcg/dL 08/15/2024 2:18 AM EST [facility] TIBC 354 250 - 450 mcg/dL 08/15/2024 2:18 AM EST [facility] Iron Saturation 18(L) 20 - 50 % 2:18 AM EST [facility] Blood VENOUS BLOOD SPECIMEN / Unknown Venipuncture / Unknown 08/14/2024 9:40 PM EST 08/14/2024 9:45 PM EST Octaviano Quiñones MD CHEMISTRY ORDERABLES Performing Organization Address [facility]/ZIP Co de Phone Number [facility] [place] [address] * (ABNORMAL) Heparin (unfractionated) Level (08/14/2024 9:40 PM EST) UF Heparin 1.03(HHH) IU/mL 08/14/2024 10:04 PM EST [facility] Comment: Heparin (anti-Xa) levels [...] Performing Organization Address [facility]/ZIP Co de Phone Number [facility] [place] [address] * (ABNORMAL) Hemoglobin A1c (08/14/2024 9:40 PM EST) Hemoglobin A1c 6.9(H) 4.3 - 5.6 % 08/14/2024 10:06 PM EST [facility] Comment: Per ADA guidelines, [...] red blood cell turnover may not be player services representative of glycemic control. Reference Interval: 4.3 - 5.6% 5.7 - 6.4%: Consistent with prediabetes >=6.5%: Consistent with diagnosis of diabetes mellitus Estimated Average Glucose 151 mg/dL 08/14/2024 10:06 PM [facility] Blood VENOUS BLOOD SPECIMEN / Unknown Venipuncture / Unknown 08/14/2024 9:40 PM EST 08/14/2024 9:46 PM EST Octaviano Quiñones MD CHEMISTRY ORDERABLES Performing Organization Address City/State/[place] Co de Phone Number [facility] [place] [address] * (ABNORMAL) CBC (with Diff) (08/14/2024 9:40 [...] 0.10 x10(3)/mc L 08/14/2024 9:51 PM EST [facility] Immature Gran % 0.5 % 9:51 PM EST [facility] Immature Gran Absolute 0.05(H) 0.00 - 0.04 x10(3)/mc L 08/14/2024 9:51 PM EST [facility] Blood VENOUS BLOOD SPECIMEN / Unknown Venipuncture / Unknown 08/14/2024 9:40 PM EST 08/14/2024 9:45 PM EST Octaviano Quiñones MD HEMATOLOGY ORDERABLE S [facility] [place] [address] * (ABNORMAL) Troponin - Single (08/14/2024 9:40 PM EST) Troponin-T, High Sensitivity 28(H) <=22 ng/L 08/14/2024 10:14 PM EST [facility] Comment: This patient's troponin [...] troponin value can be found in the [facility] Laboratory Test Catalog Troponin - https://one-.testcatalog.org/catalogs/565/files/45019 Reference: [place] Definition of Myocardial Infarction. Journal of the [place] [employer] 2018;72:8387-7553 Blood VENOUS BLOOD SPECIMEN / Unknown Venipuncture / Unknown 08/14/2024 9:40 PM EST 08/14/2024 9:45 PM EST Octaviano Quiñones [place] [address] documented in this encounter Visit Diagnoses Diagnosis [...] Routine documented in this encounter Care Teams Art Conservator Relationship Specialty Start Date End Date Mauro Berumen MD [address] [place] [address] PCP - General Family Medicine 06/02/24 documented as of this encounter
--- OUTSIDE RECORDS SUMMARY | 2024-09-08 10:54 | XMS_ITS | Clinical Summary ---
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 (HFrEF, <= 40%) 06/05/2024 Coronary artery disease invo lving asa'carsarmiut coronary artery of asa'carsarmiut heart without angina pectoris 06/05/2024 Type 2 diabetes mellitus 06/05/2024 STEMI (ST elevation myocardial infarction) 06/02 Encounters Date Type Department Care Team Description 08/14/2024 7:42 PM EST - 08/16/2024 2:48 PM EST Hospital Encounter Heart and Vascular Unit Level 3 [place] [phone] Jim Benites MD Vinod, Poornima, MD Elevated troponin; Chest pain, unspecified type Discharge Disposition: Home 08/13/2024 Telephone Cardiology at [address] [phone] Katy Maurer APRN 08/13/2024 [place] [phone] 07/20/2024 3:20 PM EST Office [place] [phone] Wendi Loja MD Post-operative state 07/20/2024 Notes Only Cardiology at [address] [phone] Esha Jones RN 07/20/2024 Travel 06/15/2024 Unscheduled Encounter Cardiology at [address] [phone] Ross Corbin PA Cardiac resynchronization therapy defibrillator (ASSEMBLY REPAIRER-D) in place [Z95.810] 06/14/2024 7:30 AM EST - 06/14/2024 2:08 PM EST Surgery Main Operating Room [place] [phone] Wendi Loja MD @CABG, USING ARTERIAL GRAFT;SINGLE ARTERIAL GRAFT (WRVU 33.75) 06/14/2024 7:30 AM EST Anesthesia Event Main Operating Room [place] [phone] Hosea Ardon MD Budney, Colleen E, SECURITY RESEARCHER 06/14/2024 Unscheduled Encounter Cardiology at [place] [phone] Ross Corbin PA Cardiac resynchronization therapy defibrillator (ASSEMBLY REPAIRER-D) in place [Z95.810] 06/13/2024 9:00 AM EST - 06/13/2024 10:00 AM EST Surgery Pool Hall Inspector [place] [phone] Nuha Shen MD CARDIAC CATHETERIZATION 06/08/2024 Ophth Exam Ophthalmology at [place] [phone] Yumiko De La Torre, COT 06/02/2024 11:09 PM EDT - 06/21/2024 1:07 PM EST Hospital Encounter Heart and Vascular Unit Level 4 [place] [address] Nuha Shen MD Costa, MD Lucio Moore, MD Gerardo Mackey, MD Fitz Duval, MD Freedom Lopez Henry J, MD ST elevation myocardial infarction (STEMI), unspecified artery; Coronary artery disease involving asa'carsarmiut coronary artery of asa'carsarmiut heart without angina pectoris; S/P CABG x 3 Discharge Disposition: Home with [facility] from Last 3 Months Social History Tobacco Use Types Packs/Day Years Used Date Smoking Tobacco: Former Cigarettes Smokeless Tobacco: Never Tobacco Cessation:Counseling Given: Not Answered [facility] Utilities Answer Date Recorded In [...] living in a assisted (including now)? No 08/16/2024 IPV Inpatient Questions [...] 2:00 PM EST Office Visit Cardiology at [address] [phone] Moi Falcon MD [facility] [place] [address] Health Maintenance Due Date Last Done Comments [...] history exists Medical Devices Implanted Type Area Bag Filler Device Identifier Shelf Expiration Date Model / Serial / Lot Janett Jacob Metcalf Quad Crtd-06/16/2019 Implanted:06/16/2019 (Quantity not on file) Cardiac Resynchronizati on Therapy - Defibrillator Chest Medtronic Cardio - [id number] / [id number] / Description:When [place] [facility] [place] this SureScan System ([id number] and leads 4076, 6935M, and 4298) can [...] Clip 35mm Closure Exclusion System Preloaded Atriclip ([id number]) (Autoreq) - [id number] Implanted:Qty: 1 on 06/14/2024 by Wendi Loja MD at [facility] IMPLANTS N/A: Heart ATRICURE - ATRICURE 03/04/2027 [id number] / / [id number] Cable,Cut,Edg,Blnt,S s,3tpr ([id number]) - [id number] Implanted:Qty: 1 on 06/14/2024 by Wendi Loja MD at [facility] IMPLANTS Midline: Sternum [employer] - [id number] 09/10/2028 [id number] / / [id number] Mdt 4076 Capsurefix Novus Lead-06/16/2019 Implanted:Qty: 1 on 06/16/2019 Lead Chest Medtronic Cardio - 4287 4076 / [id number] / Description:Atrial Lead 4076 See Generator Tab for MRI Conditions Octaviano Hawkins RT (R)(MR) 06/04/2024 Mdt 6935m Lead-06/16/2019 Implanted:Qty: 1 on 06/16/2019 Lead Chest Medtronic Cardio - 4287 6935M / [id number] / Description:RV Lead See Generator Tab for MRI Conditions Octaviano Hawkins RT (R)(MR) 06/04/2024 Mdt 4298 Attain Performa Lead-06/16/2019 Implanted:Qty: 1 on 06/16/2019 Lead Chest Medtronic Cardio - 4287 [id number] / [id number] / Description:LV Lead See Generator Tab [...] DOC: TELEMETRY STRIPS 08/14/2024 8:03 PM EST [facility] Routine 08/13/2024 1:38 PM [...] 8:39 AM EST Unlisted Cardiac Surg Procedure (10459) 06/14/2024 7:34 AM EST 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) 06/14/2024 7:34 AM EST CAD Endoscopy W/Video-Asst Vein [place], Cabg (01860) 06/14/2024 7:34 AM EST CAD Cabg, Artery-Vein, Two (43851) 06/14/2024 7:34 AM EST CAD Cabg, Arterial, Single (18374) 06/14/2024 7:34 AM EST CAD TRANSESOPHAGEAL ECHOCARDIOGRAM IN THE OR Routine 06/14/2024 7:20 AM EST Coronary artery disease involving asa'carsarmiut coronary artery of asa'carsarmiut heart without angina pectoris POC, GLUCOSE Routine [...] METABOLIC PANEL Routine 06/08/2024 3:21 AM EST LIPID PANEL (REFLEX DIRECT LDL) Routine 06/03/2024 2:13 AM EDT from Last 3 Months or Most Recently Relevant to Health Maintenance Results * (ABNORMAL) POC, GLUCOSE (08/16/2024 12:03 PM EST) Only the most recent of116 resultswithin the time period is included. Pathologist [facility] Glucometer, POC 263(H) 65 - 199 mg/dL 08/16/2024 12:03 PM EST [facility] Comment:Supplemental ranges: <140 mg/dL before meals <180 mg/dL all other times of the day. Blood CAPILLARY BLOOD / Unknown 08/16/2024 12:03 PM EST 08/16/2024 12:03 PM EST Evelyn Mckinnon MD POINT OF CARE TEST O RDERABLES Performing Organization Address [facility] Co de Phone Number [facility] [place] [place] [address] * EKG 12 Lead (08/16/2024 8:44 AM EST) Only the most recent of3 resultswithin the time period is included. Pathologist [facility] Ventricular rate 80 BPM MUSE SYSTEM Atrial Rate 80 BPM MUSE SYSTEM P-R Interval 180 ms MUSE SYSTEM QRS Duration 90 ms MUSE SYSTEM Q-T Interval 374 ms MUSE SYSTEM QTC Calculated (Bezet) 431 ms MUSE SYSTEM Calculated P [place] 63 degrees MUSE SYSTEM Calculated R [place] 22 degrees MUSE SYSTEM Calculated T [place] 129 degrees MUSE SYSTEM INTERPRETATION AV dual-paced rhythm Abnormal ECG When compared with ECG of 14-AUG-2024 23:57, No significant change was found Confirmed by MD JEAN, KRISS ([id number]) on 08/16/2024 9:37:14 AM MUSE SYSTEM 08/16/2024 8:44 AM EST 08/16/2024 9:37 AM EST Evelyn Mckinnon MD ECG ORDERABLES Performing Organization Address [facility] Co de Phone Number MUSE SYSTEM * Scan Doc: Telemetry Strips (08/16/2024 8:07 AM EST) Only the most recent of47 resultswithin the time period is included. Narrative 08/16/2024 8:07 AM EST Ordered by an unspecified provider. Scanning Provider MEDIA MGR SCAN EXT O RDR/RSLT * Heparin (unfractionated) Level (08/16/2024 12:32 AM EST) Only the most recent of13 resultswithin the time period is included. UF Heparin 0.32 IU/mL 08/16/2024 12:55 AM EST [facility] Comment: Heparin (anti-Xa) levels [...] EST Octaviano Quiñones MD HEMATOLOGY ORDERABLE S [facility] [place] [address] * (ABNORMAL) CBC (with Diff) (08/16/2024 12:32 AM EST) Only the most recent of11 resultswithin the time period is included. White [...] EST Octaviano Quiñones MD HEMATOLOGY ORDERABLE S [facility] [place] [address] * Magnesium (08/16/2024 12:32 AM EST) Only the most recent of8 resultswithin the time period is included. Magnesium 0.85 0.69 - 1.07 mMol/L 08/16/2024 1:[address] [facility] Blood VENOUS BLOOD SPECIMEN / Unknown Venipuncture / Unknown 08/16/2024 12:32 AM EST 08/16/2024 12:41 AM EST Evelyn Mckinnon MD CHEMISTRY ORDERABLES [facility] [place] [address] * (ABNORMAL) Basic Metabolic Panel (08/16/2024 12:32 AM EST) Only the most recent of17 resultswithin the time period is included. Glucose [...] 22 - 31 mMol/L 08/16/2024 1:[address] [facility] Anion Gap 10 5 - 15 mMol/L 08/16/2024 1:[address] [facility] Calcium 8.9 8.5 - 10.5 mg/dL 08/16/2024 1:[address] [facility] Est Glomerular Filtration Rate - Male 81 mL/min/1. 73 m?? 08/16/2024 1:[address] [facility] Comment: This [...] AM EST Evelyn Mckinnon MD CHEMISTRY ORDERABLES [facility] [place] [address] * ECHO COMPLETE W CONTRAST (08/15/2024 12:57 PM EST) EF 31 HEARTLAB SYSTEM Anatomical Region Laterality Modality Cardiac Other 08/15/2024 12:0 0 PM EST Narrative 08/15/2024 1:42 PM EST [address] [place] [address] ? Echocardiogram Report Name: GEORGE MEHTA ?Study Date: 08/15/2024 12:00 PMBP: 118/72 mmHg : 1955 ? Height: 168 cm ? Account: [id number] Age: 69 yrs ? Weight: 93 kg Gender: Male ?BSA: 2.0 m2 Ordering Physician: OCTAVIANO QUIÑONES Referring Physician: ANA COLON Performed By: Sandra Worthy RDCS Reason For Study: Elevated troponin Exam Location: [facility]. Interpretation Summary 1. Left ventricular systolic function [...] side images at end of report). Procedure Complete-[id number]. Image enhancement Definity was used for left [...] Note Jim Benites MD - 08/15/2024 1 [place] [address] Echocardiogram Report Name: GEORGE MEHTA Study Date: 2:00 PMBP: 118/72 mmHg : 1955 Height: 168 cm Account: [id number] Age: 69 yrs Weight: 93 kg Gender: Male BSA: 2.0 m2 Ordering Physician: OCTAVIANO QUIÑONES Referring Physician: ANA COLON Performed By: Sandra Worthy RDCS Reason For Study: Elevated troponin Exam Location: [facility]. Interpretation Summary 1. Left ventricular systolic function [...] side images at end of report). Procedure Complete-[id number]. Image enhancement Definity was used for left [...] resultswithin the time period is included. Pathologist [facility] Troponin-T, High Sensitivity 27(H) <=22 ng/L 08/15/2024 5:33 AM EST [facility] Comment: This patient's troponin [...] troponin value can be found in the [facility] Test Catalog Troponin - https://[employer].testcatalog.org/catalogs/565/files/77016 Reference: Fourth [place] Definition of Myocardial Infarction. Journal of the [place] College [employer] 2018;72:1115-7260 Blood VENOUS BLOOD SPECIMEN / Unknown Venipuncture / Unknown 08/15/2024 5:00 AM EST 08/15/2024 5:04 AM EST Octaviano Quiñones MD CHEMISTRY ORDERABLES [facility] [place] [address] * Ferritin (08/15/2024 4:59 AM EST) Ferritin 70 31 - 409 ng/ml 08/15/2024 6:09 AM EST [facility] Blood VENOUS BLOOD SPECIMEN / Unknown Venipuncture / Unknown 08/15/2024 4:59 AM EST 08/15/2024 5:04 AM EST Octaviano Quiñones MD CHEMISTRY ORDERABLES [facility] [place] [address] * (ABNORMAL) Iron and TIBC (08/14/2024 9:40 PM EST) Iron 62 45 - 160 mcg/dL 08/15/2024 2:18 AM EST [facility] TIBC 354 250 - 450 mcg/dL 08/15/2024 2:18 AM EST [facility] Iron Saturation 18(L) 20 - 50 % 2:18 AM EST [facility] Blood VENOUS BLOOD SPECIMEN / Unknown Venipuncture / Unknown 08/14/2024 9:40 PM EST 08/14/2024 9:45 PM EST Octaviano Quiñones MD CHEMISTRY ORDERABLES Performing Organization Address City/[facility]/ZIP Co de Phone Number [facility] [place] [address] * (ABNORMAL) Hemoglobin A1c (08/14/2024 9:40 PM EST) Hemoglobin A1c 6.9(H) 4.3 - 5.6 % 08/14/2024 10:06 PM EST [facility] Comment: Per ADA guidelines, [...] red blood cell turnover may not be site safety representative of glycemic control. Reference Interval: 4.3 - 5.6% 5.7 - 6.4%: Consistent with prediabetes >=6.5%: Consistent with diagnosis of diabetes mellitus Estimated Average Glucose 151 mg/dL 08/14/2024 10:06 PM EST [facility] Blood VENOUS BLOOD SPECIMEN / Unknown Venipuncture / Unknown 08/14/2024 9:40 PM EST 08/14/2024 9:46 PM EST Octaviano Quiñones MD CHEMISTRY ORDERABLES Performing Organization Address City/[facility]/ZIP Co de Phone Number [facility] [place] [address] * External Cardiology Result (08/13/2024 1:38 PM EST) Anatomical Region Laterality Modality Other Historical Provider EXTERNAL CARDIOLO GY RESULT * XR Chest PA & Lateral (Generic) (06/17/2024 1:46 PM EST) WORKSTATION ID [id number] RAD Anatomical Region Laterality Modality Chest N/A [...] have questions please contact the health career and transition teacher that requested your imaging first. ? Electronically signed by: Josselyn Spence MD, [facility] ([phone]), at 06/17/2024 4:49 PM Narrative 06/17/2024 4:49 [...] who have questions please contactthe health career and transition teacher that requested your imaging first. Electronically signed by: Josselyn Spence MD, [facility]([phone]), at 06/17/2024 4:49 PM Keila Hanley APRN [...] 357 x10(3)/mc L 06/17/2024 2:53 AM EST [facility] Mean Platelet Volume 10.4 [...] EST Wendi Loja MD HEMATOLOGY ORDERABLE S [facility] [place] [address] * Lactate, Whole Blood (06/17/2024 2:39 AM EST) Only the most recent of3 resultswithin the time period is included. Lactate, Whole Blood 1.3 0.5 - 2.2 mmol/L 06/17/2024 2:46 AM EST [facility] Blood VENOUS BLOOD SPECIMEN / Unknown Venipuncture / Unknown 06/17/2024 2:39 AM EST 06/17/2024 2:43 AM EST Wendi Loja MD CHEMISTRY ORDERABLES [facility] [place] [address] * (ABNORMAL) Cooximetry, POC (06/15/2024 9:31 AM [...] CARE TEST O RDERABLES Performing Organization Address City/State/[facility] Co de Phone Number [facility] [place] [address] * (ABNORMAL) Blood Gas, Arterial POC (06/15/2024 [...] MD POINT OF C[place] [address] * XR Chest One View (06/15/2024 6:31 AM EST) Only the most recent of3 resultswithin the time period is included. WORKSTATION ID [id number] RAD Anatomical Region Laterality Modality Chest N/A [...] have questions please contact the health career and transition teacher that requested your imaging first. ? [...] who have questions please contactthe health career and transition teacher that requested your imaging first. Electronically signed by: Stuart Aponte MD, [facility]([phone]), at 06/15/2024 10:38 AM Wendi Loja MD IMG DX ORDERABLES * Potassium (06/14/2024 11:28 PM EST) Only the most recent of5 resultswithin the time period is included. Potassium 4.1 3.5 - 5.0 mMol/L 06/14/2024 11:54 PM EST [facility] Blood VENOUS BLOOD SPECIMEN / Unknown Venipuncture / Unknown 06/14/2024 11:28 PM EST 06/14/2024 11:34 PM EST Wendi Loja MD CHEMISTRY ORDERABLES [facility] [place] [address] * (ABNORMAL) Hemoglobin (06/14/2024 6:19 PM EST) Hemoglobin 13.1(L) 13.7 - 16.5 g/dL 06/14/2024 7:08 PM EST [facility] Blood VENOUS BLOOD SPECIMEN / Unknown Venipuncture / Unknown 06/14/2024 6:19 PM EST 06/14/2024 6:28 PM EST Wendi Loja MD HEMATOLOGY ORDERABLE S Performing Organization Address City/[facility] Co de Phone Number [facility] [place] [address] * Prepare RBC (06/14/2024 2:27 PM EST) Status Information Returned [facility] Product Identification RBC [facility] Unit Number [id number] [facility] Product Code Q6375T67 [facility] Unit Blood Type OPOS [facility] Specimen Expiration Date [facility] Volulme 350 [facility] Issue Date / Time [facility] Status Information Returned [facility] Product Identification RBC [facility] Unit Number [id number] [facility] Product [facility] Q5202G29 [facility] Unit Blood Type OPOS [facility] Specimen Expiration Date [facility] Volulme 350 [facility] Issue Date / Time [facility] Blood 06/14/2024 6:2 5 AM EST Haja Byrnes MD BLOOD BANK PRODUCT O RDERABLES Performing Organization Address [facility] de Phone Number [facility] [place] [place] [address] * (ABNORMAL) Platelet count (06/14/2024 12:30 PM EST) Only the most recent of2 resultswithin the time period is included. Platelet 73(L) 145 - 357 x10(3)/mcL 06/14/2024 12:54 PM EST [facility] Blood ARTERIAL BLOOD / Unknown 06/14/2024 12:30 PM EST Comment:Pre-op diagnosis: CAD Wendi Loja MD HEMATOLOGY ORDERABLE S Performing Organization Address City/[facility]/ZIP Co de Phone Number [facility] [place] [address] * (ABNORMAL) Hemoglobin and Hematocrit, blood (06/14/2024 12:30 PM EST) Only the most recent of2 resultswithin the time period is included. Hemoglobin 10.9(L) 13.7 - 16.5 g/dL 06/14/2024 12:54 PM EST [facility] Hematocrit 33.5(L) 40.5 - 48.5 % 06/14/2024 12:54 PM EST [facility] Comment:This result has been called to Danielle López by Satya Page on 06/14/2024 12:53:56, and has been read back. Blood ARTERIAL BLOOD / Unknown 06/14/2024 12:30 PM EST 06/14/2024 12:42 PM EST Comment:Pre-op diagnosis: CAD Wendi Loja MD HEMATOLOGY ORDERABLE S Performing Organization Address City/[facility]/ZIP Co de Phone Number [facility] [place] [address] * APTT (06/14/2024 12:30 PM EST) Partial Thromboplastin Time 31 25 - 37 sec 06/14/2024 12:57 PM EST [facility] Comment: The PTT is NOT appropriate for heparin monitoring. Use the Anti-Xa level for heparin monitoring (HEP UFH) or LMWH monitoring (HEP LMW). A PTT less than 37 seconds generally indicates adequate hemostasis. Blood ARTERIAL BLOOD / Unknown 06/14/2024 12:30 PM EST 06/14/2024 12:42 PM EST Comment:Pre-op diagnosis: CAD Wendi Loja MD HEMATOLOGY ORDERABLE S [facility] [place] [address] * (ABNORMAL) Prothrombin Time (06/14/2024 12:30 PM EST) Prothrombin Time 16.8(H) 9.4 - 12.5 sec 06/14/2024 12:57 PM EST [facility] International Normalization Ratio 1.5 <=4.9 06/14/2024 12:57 PM EST [facility] Comment: An INR < [...] MD HEMATOLOGY ORDERABLE S Performing Organization Address [facility] Co de Phone Number [facility] [place] [address] * Fibrinogen (06/14/2024 12:30 PM EST) Fibrinogen 211 200 - 393 mg/dL 06/14/2024 12:57 PM EST [facility] Comment: A fibrinogen level >100 mg/dL is adequate for hemostasis in most patients without underlying bleeding disorders. Blood ARTERIAL BLOOD / Unknown 06/14/2024 12:30 PM EST 06/14/2024 12:42 PM EST Comment:Pre-op diagnosis: CAD Wendi Loja MD HEMATOLOGY ORDERABLE S [facility] [place] [address] * (ABNORMAL) Scan, Peripheral Blood (06/14/2024 11:23 AM EST) RBC Morphology Abnormal 06/14/2024 11:59 AM EST [facility] Platelet Estimate Decreased(A) Normal 06/14/2024 11:59 AM EST [facility] [place] cells 1-5 /HPF 06/14/2024 11:59 AM EST [facility] Blood ARTERIAL BLOOD / Unknown 06/14/2024 11:23 AM EST 06/14/2024 11:27 AM EST Wendi Loja MD HEMATOLOGY ORDERABLE S [facility] [place] [address] * Surgical Pathology (06/14/2024 9:53 AM EST) Case Report Surgical Pathology Report ? Case: [id number] ? Authorizing Provider: ??Wendi Loja MD ? Collected: ? 06/14/2024 0953 ? Ordering Location: ? Main Operating Room [place]en ?? Received: ?06/14/2024 1413 ? [facility] ? Hospital ? Pathologist: ? [...] Inking: External surface inked black Sections/Process ing: Pit Worker Power Shovel sections in 4 cassettes labeled A1-A4. cmk B. Heart, Atrial Appendage, Left, . B - Labeled/Fixative : Heart, atrial appendage, left, fresh. Quantity/Size: Single, 3.3 x 1.5 x 0.8 cm. Tissue Description: Portion of heart tissue consisting of rodriguez-white, semitranslucent, smooth endocardium with rodriguez-brown muscular myocardium and thin translucent epicardium with adherent adipose tissue. No areas of discoloration identified. Sections/Process ing: Pit Worker Power Shovel sections in 1 cassette labeled B1. cmk 06/18/2024 10:18 AM EST [facility] Result Note Routine 06/18/2024 10:18 AM EST [facility] Tissue SOFT TISSUE MASS / Unknown 06/14/2024 9:53 AM EST 06/14/2024 2:13 PM EST Comment:Mediastinal mass Tissue specimen (specimen) LEFT ATRIAL APPENDAGE ABSENT / Unknown 06/14/2024 10:54 AM EST 06/14/2024 2:13 PM EST Comment:MARIALUISA Wendi Loja MD PATHOLOGY/CYTOLOGY O RDERABLES Performing Organization Address City/State/[facility] Co de Phone Number [facility] [place] [address] * Transesophageal Echo/OR (06/14/2024 7:20 AM EST) Anatomical Region Laterality Modality Cardiac Other 06/14/2024 7:20 AM EST Narrative 06/14/2024 4:36 PM EST Version: 2 Study ID: [id number] 1 [place] [address] ?OR Transesophageal Echo Report Name: TYSON GEORGE L ? Study Date: 06/14/2024, 7: 20 AM ?Patient Location: ^OR16^A : 1955 Age: 69 Years Gender: Male Ordering Physician: WENDI LOJA Referring Physician: QUINTERO, NEHAL R ?Conclusions This KAREN is done at the [...] of this mass after consultation with other turner off experts and the decision was made by [...] MD - 06/14/2024 Version: 2 Study ID: [id number] [address] [place] [address] ORTransesophageal Echo Report Name: GEORGE MEHTA Study [...] of this mass after consultation with other turner off experts and thedecision was made by surgeon [...] Recheck O POSITIVE 06/13/2024 4:50 PM EST [facility] Blood VENOUS BLOOD SPECIMEN / Unknown Venipuncture / Unknown 06/13/2024 4:11 PM EST 06/13/2024 4:19 PM EST Haja Byrnes MD BLOOD BANK LAB ORDER EUSEBIA [facility] [place] [address] * Type and screen ([facility]GISELLA/RAFITA) (06/13/2024 11:53 AM EST) ABORH Type O POSITIVE 06/13/2024 1:16 PM EST [facility] PATIENT HISTORY Not Found 06/13/2024 1:16 PM EST [facility] Expires at [id number] on: 06/16/2024 06/13/2024 1:16 PM EST [facility] ANTIBODY SCREEN AUTOMATED Negative 06/13/2024 1:16 PM EST [facility] T&S only valid at [facility] 06/13/2024 1:16 PM EST [facility] [facility] Blood VENOUS BLOOD SPECIMEN / Unknown Venipuncture / Unknown 06/13/2024 11:53 AM EST 06/13/2024 11:56 AM EST Narrative [facility] - 06/13/2024 1:16 PM EST This Type and Screen result is only valid at the [facility] Haja Byrnes MD BLOOD BANK LAB ORDER EUSEBIA [facility] [place] [address] * CARDIAC CATHETERIZATION (06/13/2024 9:02 AM EST) Anatomical Region Laterality Modality Other Narrative 06/15/2024 9:07 AM EST ?[facility] ? Cardiac Catheterization/Intervention Report ? Patient Name: Tyson, George L. ? Procedure Date: 06/13/2024 ? A #: [id number] ? Primary Physician: Nuha Shen I ? Case #: [id number] ? File Name: [id number] ? Catheterization Order Number: [id number] ? [facility] ? Final Report [place], [place] ? Patient Name: ? George L. Tyson ? ID#: ?[id number] ? : ?1955 ? Procedure Date: ? June 13, 2024 ?Case #: ? - [id number] ? Room: ? 6 ? Case Physician: [...] ?was designated as ASA Class IV. The [facility] clinical frailty scale is 5: [...] procedure was Urgent. The indication for ?the laboratory engineer visit is ACS greater than 24 hrs [...] angiography, vascular ?ultrasound and IABP insertion in laboratory engineer. ? Nuha Shen M.D. ? Electronically Signed by: Nuah Shen M.D. ? Report Finalized: 06/15/2024 ??08:59 ? Procedure Note Nuha Shen MD - 06/15/2024 [facility] Cardiac Catheterization/Intervention Report Patient Name: George Mehta Procedure Date: 06/13/2024 A #: [id number] Primary Physician: Nuha Shen I Case #: [id number] File Name: [id number] Catheterization Order Number: [id number] [facility] FinalReport [place], [place] Patient Name: George Mehta ID#:[id number] :1955 Procedure Date: June 13, 2024 Case [...] was designated as ASA Class IV. The [facility] clinical frailty scale is5: Mildly [...] diagnostic procedure was Urgent. The indicationfor the laboratory engineer visit is ACS greater than 24 hrs [...] site angiography,vascular ultrasound and IABP insertion in laboratory engineer. Nuha Shen M.D. Electronically Signed by: Nuha [...] - 2.2 mmol/L 06/10/2024 5:50 PM EST [facility] Blood Gas Source Venous 06/10/20 5:50 PM EST [facility] Blood VENOUS BLOOD SPECIMEN / Unknown Blood Gas Venous / Unknown 06/10/2024 5:42 PM EST 06/10/2024 5:47 PM EST Melida Valdes MD CHEMISTRY ORDERABLES [facility] [place] [address] * Lipid Panel (Reflex Direct LDL) (06/03/2024 2:13 AM EDT) Cholesterol, Total 76 mg/dL 06/03/2024 3:02 AM [facility] Comment: Desirable: < 200 mg/dL Borderline High: 200 - 239 mg/dL High: > or = 240 mg/dL Triglyceride 75 mg/dL 06/03/2024 3:02 AM [facility] Comment: Normal: <150 mg/dL Borderline High: 150-199 mg/dL High: 200-499 mg/dL Very High: > or =500 mg/dL HDL Cholesterol 39 mg/dL 3:02 AM [facility] Comment:Males: High Risk: <4 0 mg/dL LDL Cholesterol 21 mg/dL 3:02 AM [facility] Comment: Desirable: <100 mg/dL Above Desirable: 100-129 mg/dL Borderline High: 130-159 mg/dL High: 160-189 mg/dL Very High: > or =190 mg/dL Note: LDL calculation updated to the NIH LDL formula as of 03/07/2024 Non-HDL Cholesterol 37 mg/dL 06/03/2024 3:02 AM [facility] Comment: Desirable: <130 mg/dL Above Desirable: 130-159 mg/dL Borderline High: 160-189 mg/dL High: 190-219 mg/dL Very High: > or = 220 mg/dL Blood VENOUS BLOOD SPECIMEN / Unknown IP Care Team Draw / Unknown 06/03/2024 2:13 AM EDT 06/03/2024 2:[address] [facility] - 06/03/2024 3:02 AM EDT [...] artery disease) Shahnaz Scanlon MD CHEMISTRY ORDERABLES [facility] [place] [address] from Last 3 Months or Most Recently Relevant to Health Maintenance Advance Directives * Attempt Cardiopulmonary Resuscitation - [...] wishes to be Full Code Care Teams Carpet Cleaning Technician Relationship Specialty Start Date End Date Mauro Berumen MD [address] [place] [address] PCP - General Family Medicine 06/02/24
--- OUTSIDE RECORDS SUMMARY | 2024-09-08 10:55 | XMS_ITS | Encounter Summary ---
Author Organization [facility] Address [facility] [place] [address] Care Team Providers Care Personnel Arbitrator Name Role Phone Mauro Berumen MD Primary Care Provider [phone] Encounter Details Date Type Department Care Team (Latest Contact Info) Description 07/20/2024 Travel Social History Tobacco Use Types Packs/Day Years Used Date Smoking Tobacco: Every Day Cigarettes Smokeless Tobacco: Never [facility] Utilities Answer Date Recorded In the [...] any time in the past 12 m [facility], were you homeless or living [...] 2:00 PM EST Office Visit Cardiology at [address] [address] Moi Falcon MD [facility] [place] [address] documented as of this encounter Visit Diagnoses Not on filedocumented in this encounter Care Teams Personnel Arbitrator Relationship Specialty Start Date End Date Mauro Berumen MD [address] [place] [id number] PCP - General Family Medicine 06/02/24 documented as of this encounter
--- OUTSIDE RECORDS SUMMARY | 2024-09-08 10:55 | XMS_ITS | Encounter Summary ---
Author Organization [facility] Address [facility] [place] [address] Care Team Providers Care Automation Application Engineer Name Role Phone Mauro Berumen MD Primary Care Provider [phone] Encounter Details Date Type Department Care Team (Late st Contact Info) Description 07/20/2024 3:20 PM EST Office Visit Cardiac Surgery at [facility] [place] [address] 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 His appetite has been normal [...] cardiac surgery perspective - Follow up with [employer] (Kristen Cardenas) and PCP (Mauro Berumen) as [...] PM EST Office Visit Cardiology at [address] [address] [facility] [place] [address] documented as of this encounter Procedures Procedure Name Priority Date/Time Associated Diagnosis Comments POC, GLUCOSE Routine 07/20/2024 4:31 PM EST documented in this encounter Results * POC, GLUCOSE (07/20/2024 4:31 PM EST) [facility] Signature Glucometer, POC 125 65 - 199 mg/dL 07/20/2024 4:31 PM EST [facility] Comment:Supplemental ranges: <140 mg/dL before meals <180 mg/dL all other times of the day. Blood CAPILLARY BLOOD / Unknown 07/20/2024 4:31 PM EST 07/20/2024 4:31 PM EST Bobby Loja MD POINT OF CARE TEST O RDERAPIETER Performing Organization Address City/State/[facility] Co de Phone Number [facility] [place] [address] documented in this encounter Visit Diagnoses Diagnosis Post-operative state Other postprocedural status documented in this encounter Care Teams Automation Application Engineer Relationship Specialty Start Date End Date Mauro Berumen MD [address] [place] [address] PCP - General Family Medicine 06/02/24 documented as of this encounter
--- OUTSIDE RECORDS SUMMARY | 2024-09-08 10:56 | XMS_ITS | Encounter Summary ---
Author Organization [facility] Address [facility] [place] [address] Care Team Providers Care State Director Name Role Phone Mauro Berumen MD Primary Care Provider [phone] Reason for Referral * Consultation (Routine) - Authorized Specialty Diagnoses / Procedures Referred By Contac t Referred To Contact Cardiology Diagnoses S/P CABG x 3 Bobby Loja MD [facility] [place] [address] Cardiac Rehab, [address] [place] [address] Referral ID Status Reason Start Date Expiration Date Visits Requested Visits Authorized [id number] Authorized Consult, Test & Treat 06/21/2024 12/18/2024 36 36 * Home Health Care (Routine) - Authorized Specialty Diagnoses / Procedures Referred By Contac t Referred To Contact Diagnoses S/P CABG x 3 Bobby Loja MD [facility] [place] [place] [address] Referral ID Status Reason Start Date Expiration Date Visits Requested Visits Authorized [id number] Authorized Consult, Test & Treat 06/21/2024 12/18/2024 999 999 Reason for Visit * Auth/Cert Specialty Diagnoses / Procedures Referred By Contac t Referred To Contact Diagnoses STEMI (ST elevation myocardial infarction) STEMI Procedures CARDIAC CATHETERIZATION EMERGENCY Delroy Monterroso MD [facility] [place] [address] [facility] Referral ID Status Reason Start Date Expiration Date Visits Re quested Visits Authorized [id number] 1 1 Encounter Details Date Type Department Care Team (Late st Contact Info) Description 06/02/2024 11:09 PM EDT - 06/21/2024 1:07 PM EST Hospital Encounter Heart and Vascular Unit Level 4 [place] [address] Nuha Shen MD [facility] [place] [address] Delroy Fofana MD [facility] [place] [address] Melida Valdes MD [facility] [place] [address] Ethel Carrillo MD [facility] [place] [address] Haja Byrnes MD [facility] [place] [address] Bobby Loja MD [facility] [place] [address] ST elevation myocardial infarction (STEMI), unspecified artery; Coronary artery disease involving [place] coronary artery of [place] heart without angina pectoris; S/P CABG x 3 Discharge Disposition: Home with VNA Social History Tobacco Use Types Packs/Day Years Used Date Smoking Tobacco: Every Day Cigarettes Smokeless Tobacco: Never Tobacco Cessation:Ready to Q uit: No; Counseling Given: Yes C Utilities Answer Date Recorded In the past 12 months has [employer], [employer], oil, or water [employer] threatened to shut off services in your [...] the past [address] [facility], were you homeless or living in a [...] this encounter Discharge Summaries * Keila Hanley, SHIP ENGINEER - 06/21/2024 8:31 AM EST Inpatient - Discharge Summary Patient Name: George Mehta Patient Age: 69 y.o. Birthdate: 1955 Language: Malaysian Race: Choose not to Disclose Ethnicity: Not nor Admit Date: 06/02/2024 Discharge Date: 06/21/2024 Attending Physician: Bobby Loja MD Follow-up Recommendations for Providers: Please continue routine management of cardiovascular risk factors including blood pressure, lipids,glucose, etc. Please note any changes to medications. Patient to follow up with PCP, Mauro Berumen MD, in 1-2 weeks. Patient to follow up with Substation Technician, Kristen Cardenas in 2-3 weeks. Patient to follow up with Cardiac Surgeon, Dr. Bobby Loja, in 4 wks. Inpatient Provider Contact Information: [facility] [place]iac [place] [facility] [address] FAX [phone] Discharge Diagnoses (Hospital Problems) Primary Diagnoses: STEMI [...] performed by Bobby Loja MD [facility] OR PRO CABG, ARTERY-VEIN, TWO N/A [...] y.o. male with a PMHx of previous [place] s/p PCI x3, ICM/HFrEF (LVEF 30%) s/p ICD, DMII, HTN, HLD, remote melanoma, and smoker who presented to [facility] last night via EMS after developing acute, severe chest pain while watching TV. Patient was ruled in for STEMI, given TNK, ASA, plavix, heparin gtt, and sent [place] [facility] [place]. LHC demonstrated severely calcified left coronary system with notable LCx 75/80% lesions and LAMINATION OPERATOR OM1 with ISR with collateral retrograde [...] at OSH. He was brought to the sleep lab technician which showed severely calcified left coronary system with notable LCx 75/80% lesions and LAMINATION OPERATOR OM1 with ISR with collateral retrograde [...] 2 tablespoons of dried fruit. Milk and pk-aytii-vhvxb yogurt have 15 grams of carbs in a serving. A serving is 1 cup of milk or 3/4 cup (6 oz) of um-fhpfr-thwio yogurt. Starchy vegetables have 15 grams of carbs in a serving. A serving is ?? cup of mashed potatoes or sweet potato; 1 cup winter squash; ?? of a small baked potato; ?? cup of cooked beans; or ?? cup cooked corn or green peas. Learn how much carbs to eat each day and at each meal. A dietitian or certified rehabilitation counselor can teach you how to keep [...] Bobby Loja and/or the Cardiac Surgery Physician Tar Distillation Supervisor Team may be reached at . Weight: [...] Dr. Bobby Loja. You may use a [place] Track or treadmill but avoid any pulling [...] friends, go to a movie, go to gnosticism, etc. Heavy activities: No hunting, skiing, jogging, [...] should resume a low fat, low cholesterol, [place] Heart Association Diet/Diabetic diet. Driving: No driving [...] while being managed by your PCP and/or Substation Technician. For future medication refills, please refer to your PCP and/or Substation Technician after your discharge from our service. Thank you REMOVE CHEST TUBE SUTURES ON OR AFTER 06/24/2024 Home oxygen therapy: N/A Follow up appointments: You should follow up with your PCP, Mauro Berumen MD, in 1-2 weeks. You should follow up with your Substation Technician, Dr CARDENAS. You have an appointment with your Cardiac Surgeon, Dr. Bobby Loja, in 4 wks. Cardiac Rehabilitation: George Mehta was seen today regarding participation in the outpatient Phase 2 Cardiac Rehabilitation at [facility]. The patient agrees to a referral to this program. The referral will be sent at discharge and the patient should be contacted by the program within 1-2 weeks from discharge. Future Appointments and Orders Future Orders Complete By Expires Referral to Cardiac Rehab [INQ729 Custom] As directed Process Instructions: If no progress note charted, please enter Clinical details in comments. Scheduling Instructions: Questions: My question or request is: s/p CABG- cardiac rehab at [facility] Referral to Home Health [REF34 Custom] As directed Process Instructions: If no progress note charted, please enter Clinical details in comments. Scheduling Instructions: Comments: Please evaluate George Mehta for admission to Home Health. [address] [facility] [address] (home) Date of : 1955 Inpatient DOCUMENTATION FOR VNA SERVICES (INCLUDING THOSE PATIENTS WITH MEDICARE COVERAGE REQUIRINGHOME VNA SERVICES AND/OR HOSPICE SERVICES) PATIENT'S LOCATION: George Mehta [address] [facility] [address] (home) Telephone Information: Testing Consultant's Name: self In discussion with the attending physician, it is certified that this patient is under their care and that they, or a Nurse Practitioner, or Physician Tar Distillation Supervisor who is working directly with them, hada [...] for services as follows: HOME HEALTH AGENCY: [facility] [address] [address] RN orders: Cardiopulmonary assessment, incisional assessment, assess [...] issues please call the Cardiology Office at [phone] FOR MEDICARE ONLY: (please delete this section [...] Signed: KEILA HANLEY APRN [facility] [place] of Cardiac Surgery [facility] [address] FAX [phone] Date: 06/21/2024 CC: MD Antonino Tinajero Joshua R, PA [address] [place] [address] [place] [address] documented in this encounter Discharge Instructions * [...] 2 tablespoons of dried fruit. Milk and mr-eovxe-lfnws yogurt have 15 grams of carbs in a serving. A serving is 1 cup of milk or 3/4 cup (6 oz) of gp-kicdt-nglyz yogurt. Starchy vegetables have 15 grams of carbs in a serving. A serving is ?? cup of mashed potatoes or sweet potato; 1 cup winter squash; ?? of a small baked potato; ?? cup of cooked beans; or ?? cup cooked corn or green peas. Learn how much carbs to eat each day and at each meal. A dietitian or certified rehabilitation counselor can teach you how to keep [...] Bobby Loja and/or the Cardiac Surgery Physician Tar Distillation Supervisor Team may be reached at . Weight: [...] Dr. Bobby Loja. You may use a [place] Track or treadmill but avoid any pulling [...] friends, go to a movie, go to gnosticism, etc. Heavy activities: No hunting, skiing, jogging, [...] should resume a low fat, low cholesterol, [place] Heart Association Diet/Diabetic diet. Driving: No driving [...] while being managed by your PCP and/or Substation Technician. For future medication refills, please refer to your PCP and/or Substation Technician after your discharge from our service. Thank you REMOVE CHEST TUBE SUTURES ON OR AFTER 06/24/2024 Home oxygen therapy: N/A Follow up appointments: You should follow up with your PCP, Mauro Berumen MD, in 1-2 weeks. You should follow up with your Substation Technician, Dr CARDENAS. You have an appointment with your Cardiac Surgeon, Dr. Bobby Loja, in 4 wks. Cardiac Rehabilitation: George Mehta was seen today regarding participation in the outpatient Phase 2 Cardiac Rehabilitation at [facility]. The patient agrees to [...] of your patient's venous access was performed [facility] theVascular Access Service. The following tasks [...] of your patient's venous access was performed [facility] theVascular Access Service. The following tasks [...] MARIALUISA clipping. PMH of chronic HFrEF s/p DUDE WRANGLER/ICD, IDDM2, HTN, HLD, remote melanoma, active smoker. [...] 2 tablespoons of dried fruit. Milk and av-sfijh-xugke yogurt have 15 grams of carbs in a serving. A serving is 1 cup of milk or 3/4 cup (6 oz) of tw-xdynq-cvhll yogurt. Starchy vegetables have 15 grams of carbs in a serving. A serving is ?? cup of mashed potatoes or sweet potato; 1 cup winter squash; ?? of a small baked potato; ?? cup of cooked beans; or ?? cup cooked corn or green peas. Learn how much carbs to eat each day and at each meal. A dietitian or certified rehabilitation counselor can teach you how to keep [...] cheese, and peanut butter. Alejandra Baumann APRN [facility] Endocrinology Diabetes Management Pager [phone] Weekends please page [phone] * Eric Packer PA - 06/20/2024 7:44 AM EST Cardiac Surgery Progress Note George Mehta is a 69 y.o. male with a history of CAD s/p multiple PCI who presented with an anterior STEMI and was given lytics. Cath showed MV CAD without culprit vessel. He is now 6 Days Post-OpCABGx3 and MARIALUISA clipping. PMH of chronic HFrEF s/p DUDE WRANGLER/ICD, IDDM2, HTN, HLD, remote melanoma, active smoker. 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 06/20/2024 Between the hours of 1800 - 0600 and on the weekends please page [phone]. * Alejandra Baumann, SHIP ENGINEER - 06/20/2024 7:21 AM EST Follow Up Diabetes Consult Patient Interview Blood glucose values and insulin use reviewed. probation and parole officer BG to 59 despite decrease in glargine [...] MARIALUISA clipping. PMH of chronic HFrEF s/p DUDE WRANGLER/ICD, IDDM2, HTN, HLD, remote melanoma, active smoker. probation and parole officer BG to 59 despite decrease in glargine [...] based on ISF 20 Alejandra Baumann APRN [facility] Endocrinology Diabetes Management Pager [phone] Weekends please page [phone] Insulin Discharge Instructions Preliminary Diabetes Discharge Instructions [...] 2 tablespoons of dried fruit. Milk and jn-yrzsd-kjnwp yogurt have 15 grams of carbs in a serving. A serving is 1 cup of milk or 3/4 cup (6 oz) of bw-zpukc-blpqv yogurt. Starchy vegetables have 15 grams of carbs in a serving. A serving is ?? cup of mashed potatoes or sweet potato; 1 cup winter squash; ?? of a small baked potato; ?? cup of cooked beans; or ?? cup cooked corn or green peas. Learn how much carbs to eat each day and at each meal. A dietitian or certified rehabilitation counselor can teach you how to keep [...] MARIALUISA clipping. PMH of chronic HFrEF s/p DUDE WRANGLER/ICD, IDDM2, HTN, HLD, remote melanoma, active smoker. 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 Jeffy Hood MD 06/19/2024 Between the hours of 1800 - 0600 and on the weekends please page [phone]. * Alejandra Baumann, JOSÉ ANTONIO - 06/19/2024 7:09 AM EST Follow Up Diabetes Consult Patient Interview Blood glucose values and insulin use reviewed. Jardiance added back yesterday, photographer still low BGto 51. Glargine reduced to 45 [...] MARIALUISA clipping. PMH of chronic HFrEF s/p DUDE WRANGLER/ICD, IDDM2, HTN, HLD, remote melanoma, active smoker. Jardiance added back yesterday. probation and parole officer low BG to 51. Glargine reduced to [...] 2 tablespoons of dried fruit. Milk and og-rbxqr-vshur yogurt have 15 grams of carbs in a serving. A serving is 1 cup of milk or 3/4 cup (6 oz) of wn-faadd-uyyox yogurt. Starchy vegetables have 15 grams of carbs in a serving. A serving is ?? cup of mashed potatoes or sweet potato; 1 cup winter squash; ?? of a small baked potato; ?? cup of cooked beans; or ?? cup cooked corn or green peas. Learn how much carbs to eat each day and at each meal. A dietitian or certified rehabilitation counselor can teach you how to keep [...] cheese, and peanut butter. Alejandra Baumann APRN [facility] Endocrinology Diabetes Management Pager [phone] Weekends please page [phone] Hilda Almazan PTA - 06/18/2024 9:19 AM EST Physical Therapy Note 2 Patient profile: George Mehta is a 69 y.o. male with a history of CAD s/p multiple PCI who presented with an anterior STEMI and was given lytics. Cath showed MV CAD without culprit vessel. He is now 1 Day Post-Op CABGx3 and MARIALUISA clipping. PMH of chronic HFrEF s/p DUDE WRANGLER/ICD, IDDM2, HTN, HLD, remote melanoma, active smoker. Interval History: Per last cardiac surgery note on 06/18/2024 Cr improved 1.4 on lasix 40 iv bid -1.5L, made 2.5L urine Coreg, entresto restarted Floor status Social History: Pt lives with his in a 1 level apartment with no steps to enter. 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 He drives. He sleeps in a recliner at baseline. Precautions/Special Considerations: Sternal precautions, PIV, at risk to fall, PPM Mobility and Positioning Recommendations: Pt to utilize no AD, supervision for ambulation and transfers w/ staff internist office based only as able. Please encourage up to chair [...] least restrictive device Time IN / OUT: 0056-4844 Total Time: 11 minutes; TEF 1 Hilda Resendez PTA Pager: [phone] Physical Therapy Inpatient Rehabilitation Department * Keila [...] MARIALUISA clipping. PMH of chronic HFrEF s/p DUDE WRANGLER/ICD, IDDM2, HTN, HLD, remote melanoma, active smoker. 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 Restarting jardiance #Active smoker Duoneb prn Dispo: CVCC, Full code, tx to floor Discussed with attending surgeon on rounds this morning. KEILA HANLEY APRN 06/18/2024 Between the hours of 1800 - 0600 and on the weekends please page [phone]. * Alejandra Baumann APRN - 06/17/2024 3:29 [...] MARIALUISA clipping. PMH of chronic HFrEF s/p DUDE WRANGLER/ICD, IDDM2, HTN, HLD, remote melanoma, active smoker. [...] based on ISF 20 Alejandra Baumann APRN [facility] Endocrinology Diabetes Management Pager [phone] Weekends please page [phone] 35 minutes were spent over the course [...] MARIALUISA clipping. PMH of chronic HFrEF s/p DUDE WRANGLER/ICD, IDDM2, HTN, HLD, remote melanoma, active smoker. [...] 0600 and on the weekends please page [phone]. * Raymond Carlton MD - 06/16/2024 1:11 PM EST CARDIAC CRITICAL CARE ATTENDING STAFF PROGRESS NOTE Patient seen and examined. George Mehta is a 69 y.o. male with: Active Hospital Problems Diagnosis STEMI (ST elevation myocardial infarction) Cardiac resynchronization therapy defibrillator (DUDE WRANGLER-D) - Medtronic Amplia Cardiomyopathy, ischemic Acute on chronic heart failure with reduced ejection fraction (HFrEF, <= 40%) Coronary artery disease involving [place] coronary artery of [place] heart without angina pectoris Type 2 diabetes [...] encouragement provided Patient screened for f/u and machine sign writer met pt at bedside. Pt states [...] unless consulted in the interim. RICHA Simmons Patternmaker Metal Bench * Octaviano Horvath PA - 06/16/2024 8:07 AM EST Cardiac Surgery Progress Note George Mehta is a 69 y.o. male with a history of CAD s/p multiple PCI who presented with an anterior STEMI and was given lytics. Cath showed MV CAD without culprit vessel. He is now 2 Days Post-OpCABGx3 and MARIALUISA clipping. PMH of chronic HFrEF s/p DUDE WRANGLER/ICD, IDDM2, HTN, HLD, remote melanoma, active smoker. [...] 0600 and on the weekends please page [phone]. * Jono Fernandez, PT - 06/15/2024 4:09 PM EST Physical Therapy Evaluation Patient profile: George Mehta is a 69 y.o. male with a history of CAD s/p multiple PCI who presented with an anterior STEMI and was given lytics. Cath showed MV CAD without culprit vessel. He is now 1 Day Post-Op CABGx3 and MARIALUISA clipping. PMH of chronic HFrEF s/p DUDE WRANGLER/ICD, IDDM2, HTN, HLD, remote melanoma, active smoker. 24h Events: From OR on Dobutamine IABP removed Bedrest ended ~2100, sedation weaned Extubated ~0200 Dobutamine weaned to 1 this morning, CI 2.6, shut off and repeat CI 2.4 Social History: Pt lives with his in a 1 level apartment with no steps to enter. 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 He drives. He sleeps [...] outlined inthis evaluation. JONO FERNANDEZ, PT Pager: [phone] Physical Therapy Inpatient Rehabilitation Department Time IN / OUT: 4815-0429 Total Time: 33 (eval) minutes * Alejandra Baumann APRN - 06/15/2024 11:39 AM EST Follow Up Diabetes Consult Patient Interview Blood glucose values and insulin use reviewed. Pt remains on an insulin drip today following [id number] MARIALUISA clipping. George continues to complain of [...] MARIALUISA clipping. PMH of chronic HFrEF s/p DUDE WRANGLER/ICD, IDDM2, HTN, HLD, remote melanoma, active smoker. [...] based on ISF 20 Alejandra Baumann APRN [facility] Endocrinology Diabetes Management Pager [phone] Weekends please page [phone] 50 minutes were spent over the course [...] elevation myocardial infarction) Cardiac resynchronization therapy defibrillator (DUDE WRANGLER-D) - Medtronic Amplia Cardiomyopathy, ischemic Acute on chronic heart failure with reduced ejection fraction (HFrEF, <= 40%) Coronary artery disease involving [place] coronary artery of [place] heart without angina pectoris Type 2 diabetes [...] with h/o DM, CAD with prior PCI, DUDE WRANGLER-D who presented with crushing chest pain, found [...] MARIALUISA clipping. PMH of chronic HFrEF s/p DUDE WRANGLER/ICD, IDDM2, HTN, HLD, remote melanoma, active smoker. [...] sternotomy dressing CDI, saphenectomy dressing CDi Tubes/Lines/Drains: [place], RIJ, A-line, Mediastinal marcos and bilateral pleural [...] 0600 and on the weekends please page [phone]. * Yoli Donaldson, CONSIGNEE - 06/15/2024 5:35 AM EST AMV Protocol: [...] with h/o DM, CAD with prior PCI, DUDE WRANGLER-D who presented with crushing chest pain, found [...] with h/o DM, CAD with prior PCI, DUDE WRANGLER-D who presented with crushing chest pain, found [...] 0600 and on the weekends please page [phone]. * Chloé Cortez - 06/14/2024 9:36 AM [...] unless consulted in the interim. Chloé Cortez Graphics Artist * Jim Benites MD - 06/13/2024 1:15 [...] - Mildly dilated left ventricle size with zernrmbn-wi-bohweubv decreased LV systolic function. LV ejection fraction [...] ACS/crushing chest pain, likely due to lateral [place], found to have surgical CAD with viability [...] (abstinent since admission), ASCVD with multiple prior [place] and PCIs, ICM/HFrEF LVEF 30% (all territories [...] elevation myocardial infarction) Cardiac resynchronization therapy defibrillator (DUDE WRANGLER-D) - Medtronic Amplia Cardiomyopathy, ischemic Acute on chronic heart failure with reduced ejection fraction (HFrEF, <= 40%) Coronary artery disease involving [place] coronary artery of [place] heart without angina pectoris Type 2 diabetes [...] PCP: Mauro Berumen MD PCP phone number: [phone] Date of Admission: 06/02/2024 ( Hospital Day 10 days ) Attending:Ethel Carrillo MD ID: 69 y.o. male with a h/o DM type 2, HTN, HLD, current smoker (2-3 cigarettes/day), HFrEF with anICD for low EF (~30%), and CAD with prior [place] x3 with JENNA placed in [facility], presented to [facility] with 1 hour of retrosternal CP (05/13) while watching TV, found to have STEMI. Active Problems: Active Hospital Problems Diagnosis STEMI (ST elevation myocardial infarction) Cardiac resynchronization therapy defibrillator (DUDE WRANGLER-D) - Medtronic Amplia Cardiomyopathy, ischemic Acute on chronic heart failure with reduced ejection fraction (HFrEF, <= 40%) Coronary artery disease involving [place] coronary artery of [place] heart without angina pectoris Type 2 diabetes [...] in the last 7068 hours. Invalid input(s): [id number] Recent Labs 06/12/24 0425 06/11/24 2356 06/11/24 2025 06/11/24 1624 06/11/24 1108 06/11/24 0748 06/11/24 0357 06/11/24 0050 06/10/24 1922 06/10/24 1735 06/10/24 1125 06/10/24 0746 POCGLU 132 135 210* 81 233* 184 132 144 236* 123 216* 206* Heme No results for input(s): LDH, HAPTOGLOBIN, URICACID in the last 168 hours. ABG (Arterial Blood Gas) No results found for: PHART, PO2ART, PRZ3SLQ, OIR6GHT Microbiology: Microbiology Results (Last 30 days) No results found for the last 720 hours. Imaging: Results for orders placed or performed during the hospital encounter of 06/02/24 XR Chest One View (Exam End: 06/03/2024 2:41 AM) Result Value WORKSTATION ID [id number] Impression No radiographically evident acute cardiopulmonary process. Thank you for letting us participate in the care of this patient. If you are a health care provider and have any questions regarding this report, please contact the number below. For patients who have questions please contact the health care advocate that requested your imaging first. Cardiac Morphology Function wwo Contrast (Exam End: 06/07/2024 1:10 PM) Result Value WORKSTATION ID [id number] Impression - Findings consistent with an ischemic [...] - Mildly dilated left ventricle size with tjmczked-yz-ibpanuwt decreased LV systolic function. LV ejection fraction [...] who have questions please contact the health care advocate that requested your imaging first. Chest wo Contrast (Generic) (Exam End: 06/03/2024 4:33 PM) Result Value WORKSTATION ID [id number] Impression Cardiomegaly. Biventricular ICD leads in place. Thank you for letting us participate in the care of this patient. If you are a health care provider and have any questions regarding this report, please contact the number below. For patients who have questions please contact the health care advocate that requested your imaging first. Chest PA & Lateral (Generic) (Exam End: 06/07/2024 7:03 AM) Result Value WORKSTATION ID [id number] Impression Biventricular ICD leads intact and in [...] who have questions please contact the health care advocate that requested your imaging first. : Limited echo performed by fellow promotions specialist to assess LV function. Left ventricle [...] ischemic cardiomyopathy with HFrEF (~30% EF), prior WV with stents, DM type 2, HTN, HLD, active smoker, presented with anterior STEMI. Angiography revealed severe multivessel CAD with extensive calcification and YUE 3 flow in all vessels, without a clear culprit lesion. Currently pain-free after TNK, Plavix, ASA, and heparin, with mildly elevated LVEDP at 40 mmHg and mild volume overload. 06/12/24: Patient stable, asymptomatic. Plan to go to sleep lab technician for balloon pump tomorrow, then [...] CODE Dain Colón MD Cardiology, M1-S2, Pager #[phone] 06/12/24 Associated attestation - Ethel Carrillo MD [...] (abstinent since admission), ASCVD with multiple prior WV and PCIs, ICM/HFrEF LVEF 30% (all territories [...] Ethel Carrillo MD Cardiovascular Medicine Personal Pager [phone] 06/12/2024 9:12 PM * Alejandra Baumann, SHIP ENGINEER - 06/11/2024 4:21 PM EST Images [...] too aggressive, suggest ICR 1:6 (rule of [id number]/81 = 6.25). George is up and walking [...] ischemic cardiomyopathy with HFrEF (~30% EF), prior WV with stents, DM type 2, HTN, HLD, [...] ac, metformin 1000mg BID Alejandra Baumann APRN [facility] [place]ocrin[place] Diabetes Management Pager [phone] Weekends please page [phone] 35 minutes were spent over the course [...] PCP: Mauro Berumen MD PCP phone number: [phone] Date of Admission: 06/02/2024 ( Hospital Day 9 days ) Attending:Melida Valdes MD ID: 69 y.o. male with a h/o DM type 2, HTN, HLD, current smoker (2-3 cigarettes/day), HFrEF with anICD for low EF (~30%), and CAD with prior W[place] x3 with JENNA placed in [place], Melanoma, PAD, presented to [facility] with 1 hour of retrosternal CP (05/13) while watching TV, found to have STEMI. Active Problems: Active Hospital Problems Diagnosis STEMI (ST elevation myocardial infarction) Cardiac resynchronization therapy defibrillator (DUDE WRANGLER-D) - Medtronic Amplia Cardiomyopathy, ischemic Acute on chronic heart failure with reduced ejection fraction (HFrEF, <= 40%) Coronary artery disease involving [place] coronary artery of [place] heart without angina pectoris Type 2 diabetes [...] in the last 7068 hours. Invalid input(s): [id number] Recent Labs 06/11/24 0357 06/11/24 0050 06/10/24 1922 06/10/24 1735 06/10/24 1125 06/10/24 0746 06/10/24 0423 06/10/24 0005 06/09/24 2036 06/09/24 1727 06/09/24 1152 06/09/24 0810 POCGLU 132 144 236* 123 216* 206* 154 125 197 174 211* 209* Heme No results for input(s): LDH, HAPTOGLOBIN, URICACID in the last 168 hours. ABG (Arterial Blood Gas) No results found for: PHART, PO2ART, WXN3EQN, JLK8VGX Microbiology: Microbiology Results (Last 30 days) No results found for the last 720 hours. Imaging: Results for orders placed or performed during the hospital encounter of 06/02/24 XR Chest One View (Exam End: 06/03/2024 2:41 AM) Result Value WORKSTATION ID [id number] Impression No radiographically evident acute cardiopulmonary process. Thank you for letting us participate in the care of this patient. If you are a health care provider and have any questions regarding this report, please contact the number below. For patients who have questions please contact the health care advocate that requested your imaging first. Cardiac Morphology Function wwo Contrast (Exam End: 06/07/2024 1:10 PM) Result Value WORKSTATION ID [id number] Impression - Findings consistent with an ischemic [...] - Mildly dilated left ventricle size with esujcjwl-yd-njvblrsy decreased LV systolic function. LV ejection fraction [...] who have questions please contact the health care advocate that requested your imaging first. Chest wo Contrast (Generic) (Exam End: 06/03/2024 4:33 PM) Result Value WORKSTATION ID [id number] Impression Cardiomegaly. Biventricular ICD leads in place. Thank you for letting us participate in the care of this patient. If you are a health care provider and have any questions regarding this report, please contact the number below. For patients who have questions please contact the health care advocate that requested your imaging first. Chest PA & Lateral (Generic) (Exam End: 06/07/2024 7:03 AM) Result Value WORKSTATION ID [id number] Impression Biventricular ICD leads intact and in [...] who have questions please contact the health care advocate that requested your imaging first. : Limited echo performed by fellow promotions specialist to assess LV function. Left ventricle [...] Infusions: heparin (porcine) infusion 1,400 Units/hr (06/10/24 8965) PRN Meds:.insulin lispro, glucose 40% oral geL [...] ischemic cardiomyopathy with HFrEF (~30% EF), prior WV with stents, DM type 2, HTN, HLD, [...] (abstinent since admission), ASCVD with multiple prior W[place] and PCIs, ICM/HFrEF LVEF 30% (all territories [...] Ethel Carrillo MD Cardiovascular Medicine Personal Pager [phone] 06/11/2024 9:35 PM * Hilary Belle - 06/10/2024 12:39 PM EST Nutrition Services Note George Mehta is a 69 y.o. male Reason for intervention: hospital day 9 Nutrition Plan: Continue diet order: 60/60/75 CHO Level 2 Encourage good PO Lasix and Insulin noted Monitor weight Patient scheduled for a hospital day 9 nutrition evaluation. Acquisition Advisor attempted to meet with pt at bedside [...] unless consulted in the interim. Hilary Belle Patternmaker Metal Bench * Mariia Montero RN - 06/10/2024 12:23 PM EST I have met with the patient to: discuss discharge planning needs. provide the [facility] Office of Care Management letter from the Linux System Engineer pertaining to rehab referrals. provide a letter describing our affiliations within the [facility] and educate about their right to choose where referrals are sent. provide a list of Home Health Agencies / Durable Medical Equipment vendors which serve their preferred geographic area. provided patient with CMS Star Quality Rating handout. They have requested referrals to: [facility]. [address] [place] [id number] RN / PT Anticipated d/c date: 06/20/24 Note routed to a Computer Applications Instructor who will communicate referrals to facilities and provide any required information. * Dain Colón MD - 06/10/2024 7:17 AM EST Images from the original note were not included. . Cardiology Progress Note Patient info: Name: George Mehta : 1955 PCP: Mauro Berumen MD PCP phone number: [phone] Date of Admission: 06/02/2024 ( Hospital Day 8 days ) Attending:Melida Valdes MD ID: 69 y.o. male with a h/o DM type 2, HTN, HLD, current smoker (2-3 cigarettes/day), HFrEF with anICD for low EF (~30%), and CAD with prior W[place] x3 with JENNA placed in [place], [facility], PAD, presented to [facility] with 1 hour of retrosternal CP (05/13) while watching TV, found to have STEMI. Active Problems: Active Hospital Problems Diagnosis STEMI (ST elevation myocardial infarction) Cardiac resynchronization therapy defibrillator (DUDE WRANGLER-D) - Medtronic Amplia Cardiomyopathy, ischemic Acute on chronic heart failure with reduced ejection fraction (HFrEF, <= 40%) Coronary artery disease involving [place] coronary artery of [place] heart without angina pectoris Type 2 diabetes [...] in the last 7068 hours. Invalid input(s): [id number] Recent Labs 06/10/24 0423 06/10/24 0005 06/09/24 2036 06/09/24 1727 06/09/24 1152 06/09/24 0810 06/09/24 0440 06/09/24 0034 06/08/24 2027 06/08/24 1616 06/08/24 1235 06/08/24 0810 POCGLU 154 125 197 174 211* 209* 131 186 176 159 226* 190 Heme No results for input(s): LDH, HAPTOGLOBIN, URICACID in the last 168 hours. ABG (Arterial Blood Gas) No results found for: PHART, PO2ART, UPB5RZT, EGT8PZJ Microbiology: Microbiology Results (Last 30 days) No results found for the last 720 hours. Imaging: Results for orders placed or performed during the hospital encounter of 06/02/24 XR Chest One View (Exam End: 06/03/2024 2:41 AM) Result Value WORKSTATION ID [id number] Impression No radiographically evident acute cardiopulmonary process. Thank you for letting us participate in the care of this patient. If you are a health care provider and have any questions regarding this report, please contact the number below. For patients who have questions please contact the health care advocate that requested your imaging first. Cardiac Morphology Function wwo Contrast (Exam End: 06/07/2024 1:10 PM) Result Value WORKSTATION ID [id number] Impression - Findings consistent with an ischemic [...] - Mildly dilated left ventricle size with maqhduud-sx-lioyhgbm decreased LV systolic function. LV ejection fraction [...] who have questions please contact the health care advocate that requested your imaging first. Chest wo Contrast (Generic) (Exam End: 06/03/2024 4:33 PM) Result Value WORKSTATION ID [id number] Impression Cardiomegaly. Biventricular ICD leads in place. Thank you for letting us participate in the care of this patient. If you are a health care provider and have any questions regarding this report, please contact the number below. For patients who have questions please contact the health care advocate that requested your imaging first. Chest PA & Lateral (Generic) (Exam End: 06/07/2024 7:03 AM) Result Value WORKSTATION ID [id number] Impression Biventricular ICD leads intact and in [...] who have questions please contact the health care advocate that requested your imaging first. : Limited echo performed by fellow promotions specialist to assess LV function. Left ventricle [...] ischemic cardiomyopathy with HFrEF (~30% EF), prior [place] with stents, DM type 2, HTN, HLD, [...] Dain Colón MD Cardiology, M1-S2, Pager #[phone] 06/10/24 Associated attestation - Melida Valdes MD [...] a lytic and brought directly to the Commercial Lines Account Manager. Cardiac catheterization demonstrated multivessel disease with [...] who is agreeable Melida Valdes MD Staff Substation Technician * Cherelle Fregoso APRN - 06/09/2024 [...] ischemic cardiomyopathy with HFrEF (~30% EF), prior [place]V with stents, DM type 2, HTN, HLD, [...] PCP: Mauro Berumen MD PCP phone number: [phone] Date of Admission: 06/02/2024 ( Hospital Day 7 days ) Attending:Melida Valdes MD ID: 69 y.o. male with a h/o DM type 2, HTN, HLD, current smoker (2-3 cigarettes/day), HFrEF with anICD for low EF (~30%), and CAD with prior [place] x3 with JENNA placed in [place], [place]an[place], PAD, presented to [facility] with 1 hour of retrosternal CP (05/13) while watching TV, found to have STEMI. Active Problems: Active Hospital Problems Diagnosis STEMI (ST elevation myocardial infarction) Acute on chronic heart failure with reduced ejection fraction (HFrEF, <= 40%) Coronary artery disease involving [place] coronary artery of [place] heart without angina pectoris Type 2 diabetes [...] in the last 7068 hours. Invalid input(s): [id number] Recent Labs 06/09/24 0440 06/09/24 0034 06/08/24 2027 06/08/24 1616 06/08/24 1235 06/08/24 0810 06/08/24 0409 06/07/24 2357 06/07/24 2005 06/07/24 1631 06/07/24 1105 06/07/24 1103 POCGLU 131 186 176 159 226* 190 151 188 118 174 221* 250* Heme No results for input(s): LDH, HAPTOGLOBIN, URICACID in the last 168 hours. ABG (Arterial Blood Gas) No results found for: PHART, PO2ART, EMO9ADJ, GJI8OLK Microbiology: Microbiology Results (Last 30 days) No results found for the last 720 hours. Imaging: Results for orders placed or performed during the hospital encounter of 06/02/24 XR Chest One View (Exam End: 06/03/2024 2:41 AM) Result Value WORKSTATION ID [id number] Impression No radiographically evident acute cardiopulmonary process. Thank you for letting us participate in the care of this patient. If you are a health care provider and have any questions regarding this report, please contact the number below. For patients who have questions please contact the health care advocate that requested your imaging first. Cardiac Morphology Function wwo Contrast (Exam End: 06/07/2024 1:10 PM) Result Value WORKSTATION ID [id number] Impression - Findings consistent with an ischemic [...] - Mildly dilated left ventricle size with nysmjlaz-xz-zwrivneg decreased LV systolic function. LV ejection fraction [...] who have questions please contact the health care advocate that requested your imaging first. Chest wo Contrast (Generic) (Exam End: 06/03/2024 4:33 PM) Result Value WORKSTATION ID [id number] Impression Cardiomegaly. Biventricular ICD leads in place. Thank you for letting us participate in the care of this patient. If you are a health care provider and have any questions regarding this report, please contact the number below. For patients who have questions please contact the health care advocate that requested your imaging first. Chest PA & Lateral (Generic) (Exam End: 06/07/2024 7:03 AM) Result Value WORKSTATION ID [id number] Impression Biventricular ICD leads intact and in [...] who have questions please contact the health care advocate that requested your imaging first. : Limited echo performed by fellow promotions specialist to assess LV function. Left ventricle [...] Infusions: heparin (porcine) infusion 1,400 Units/hr (06/08/24 0909) PRN Meds:.glucose 40% oral geL OR dextrose [...] ischemic cardiomyopathy with HFrEF (~30% EF), prior [place] with stents, DM type 2, HTN, HLD, [...] CODE Dain Colón MD Cardiology, M1-S2, Pager #[phone] 06/09/24 Associated attestation - Melida Valdes MD [...] a lytic and brought directly to the Commercial Lines Account Manager. Cardiac catheterization demonstrated multivessel disease with [...] insertion low EF. Melida Valdes MD Staff Substation Technician * Alejandra Baumann, JOSÉ ANTONIO - [...] ischemic cardiomyopathy with HFrEF (~30% EF), prior [place] with stents, DM type 2, HTN, HLD, [...] to optimize glucose control Alejandra Baumann APRN [facility] [place]ocrin[facility] Diabetes Management Pager [phone] Weekends please page [phone] 35 minutes were spent over the course [...] PCP: Mauro Berumen MD PCP phone number: [phone] Date of Admission: 06/02/2024 ( Hospital Day 6 days ) Attending:Melida Valdes MD ID: 69 y.o. male with a h/o DM type 2, HTN, HLD, current smoker (2-3 cigarettes/day), HFrEF with anICD for low EF (~30%), and CAD with prior [place] x3 with JENNA placed in [place], [place]an[place], PAD, presented to [facility] with 1 hour of retrosternal CP (05/13) while watching TV, found to have STEMI. Active Problems: Active Hospital Problems Diagnosis STEMI (ST elevation myocardial infarction) Acute on chronic heart failure with reduced ejection fraction (HFrEF, <= 40%) Coronary artery disease involving [place] coronary artery of [place] heart without angina pectoris Type 2 diabetes [...] in the last 7068 hours. Invalid input(s): [id number] Recent Labs 06/08/24 0409 06/07/24 2357 06/07/24200406/07/24 1631 06/07/24 1105 06/07/24 1103 06/07/24 0745 06/07/24 0425 06/07/24 0008 06/06/24201706/06/24 1539 06/06/24 1339 POCGLU 151 188 118 174 221* 250* 175 127 182 143 147 317* Heme No results for input(s): LDH, HAPTOGLOBIN, URICACID in the last 168 hours. ABG (Arterial Blood Gas) No results found for: PHART, PO2ART, CMG5UCO, HIB8SXQ Microbiology: Microbiology Results (Last 30 days) No results found for the last 720 hours. Imaging: Results for orders placed or performed during the hospital encounter of 06/02/24 XR Chest One View (Exam End: 06/03/2024 2:41 AM) Result Value WORKSTATION ID [id number] Impression No radiographically evident acute cardiopulmonary process. Thank you for letting us participate in the care of this patient. If you are a health care provider and have any questions regarding this report, please contact the number below. For patients who have questions please contact the health care advocate that requested your imaging first. Cardiac Morphology Function wwo Contrast (Exam End: 06/07/2024 1:10 PM) Result Value WORKSTATION ID [id number] Impression - Findings consistent with an ischemic [...] - Mildly dilated left ventricle size with ualebcad-nq-zlbjhhls decreased LV systolic function. LV ejection fraction [...] who have questions please contact the health care advocate that requested your imaging first. Chest wo Contrast (Generic) (Exam End: 06/03/2024 4:33 PM) Result Value WORKSTATION ID [id number] Impression Cardiomegaly. Biventricular ICD leads in place. Thank you for letting us participate in the care of this patient. If you are a health care provider and have any questions regarding this report, please contact the number below. For patients who have questions please contact the health care advocate that requested your imaging first. Chest PA & Lateral (Generic) (Exam End: 06/07/2024 7:03 AM) Result Value WORKSTATION ID [id number] Impression Biventricular ICD leads intact and in [...] who have questions please contact the health care advocate that requested your imaging first. : Limited echo performed by fellow promotions specialist to assess LV function. Left ventricle [...] ischemic cardiomyopathy with HFrEF (~30% EF), prior [place] with stents, DM type 2, HTN, HLD, [...] CODE Dain Colón MD Cardiology, M1-S2, Pager #[phone] 06/08/24 Associated attestation - Melida Valdes MD [...] a lytic and brought directly to the Commercial Lines Account Manager. Cardiac catheterization demonstrated multivessel disease with [...] Otherwise clinically stable Melida Valdes MD Staff Substation Technician * Ross Manuel PA - 06/07/2024 12:00 PM EST Cardiac Electrophysiology CIED Interrogation/Programming Note Asked by MRI staff to evaluate and program Medtronic DUDE WRANGLER-D to allow for MR imaging. Patient Active Problem List Diagnosis ','STEMI (ST elevation myocardial infarction) Acute on chronic heart failure with reduced ejection fraction (HFrEF, <= 40%) Coronary artery disease involving [place] coronary artery of [place] heart without angina pectoris Type 2 diabetes mellitus Device Data: Medtronic Amplia MRI Quad DUDE WRANGLER-D [id number] #[id number] 06/16/2019 RA Medtronic 4076 CapSureFix Novus [id number] 06/16/2019 RV Medtronic 6935M [id number] 06/16/2019 LV Medtronic 4298 Attain Performa MRI [id number] 06/16/2019 DDD @ 50/130/130 Adaptive Bi-V and LV VF >188bpm ATP, 35j x6 FVT >188-222bpm burst 2, 35jx5 VT Battery longevity: 2.5yrs; charge time 4s P wave: 2.3mV R wave: >20.0mV Atrial impedance: 458 ohms RV impedance: 646 ohms LV impedance: 722 ohms Atrial threshold: 0.5V @ 0.4ms RV threshold: LV threshold: 1.75V @ 0.4ms AP 0.2% [place] NET OR TRAP 97.7% AT/AF 0% Impression and Plan: 1. Interrogated device to determine suitability for MRI 2. Programmed to MRI safe mode - VOO @ 70 3. Scan performed 4. Programming restored to baseline settings 5. Reinterrogated to verify appropriate function and settings 6. Device follow up as previously scheduled Provider: HENOK Meyer EP Consult attending physician: Libby Barton MD EP Consult positional pager #[phone](EPMD) EP Device interrogation positional pager # [phone] * Dain Colón MD - 06/07/2024 7:09 AM EST Images from the original note were not included. . Cardiology Progress Note Patient info: Name: George Mehta : 1955 PCP: Mauro Berumen MD PCP phone number: [phone] Date of Admission: 06/02/2024 ( Hospital Day 5 days ) Attending:Melida Valdes MD ID: 69 y.o. male with a h/o DM type 2, HTN, HLD, current smoker (2-3 cigarettes/day), HFrEF with anICD for low EF (~30%), and CAD with prior [place] x3 with JENNA placed in [place], Melan[place], PAD, presented to [facility] with 1 hour of retrosternal CP (05/13) while watching TV, found to have STEMI. Active Problems: Active Hospital Problems Diagnosis STEMI (ST elevation myocardial infarction) Acute on chronic heart failure with reduced ejection fraction (HFrEF, <= 40%) Coronary artery disease involving [place] coronary artery of [place] heart without angina pectoris Type 2 diabetes [...] in the last 7068 hours. Invalid input(s): [id number] Recent Labs 06/07/24 0425 06/07/24 0008 06/06/24 2018 06/06/24 1539 06/06/24 1339 06/06/24 1134 06/06/24 0757 06/06/24 0653 06/05/24 2231 06/05/24 1622 06/05/24 1134 06/05/24 0727 POCGLU 127 182 143 147 317* 264* 195 187 238* 205* 211* 166 Heme No results for input(s): LDH, HAPTOGLOBIN, URICACID in the last 168 hours. ABG (Arterial Blood Gas) No results found for: PHART, PO2ART, BQN3CAU, LKC1AFA Microbiology: Microbiology Results (Last 30 days) No results found for the last 720 hours. Imaging: Results for orders placed or performed during the hospital encounter of 06/02/24 XR Chest One View (Exam End: 06/03/2024 2:41 AM) Result Value WORKSTATION ID [id number] Impression No radiographically evident acute cardiopulmonary process. Thank you for letting us participate in the care of this patient. If you are a health care provider and have any questions regarding this report, please contact the number below. For patients who have questions please contact the health care advocate that requested your imaging first. Chest wo Contrast (Generic) (Exam End: 06/03/2024 4:33 PM) Result Value WORKSTATION ID [id number] Impression Cardiomegaly. Biventricular ICD leads in place. Thank you for letting us participate in the care of this patient. If you are a health care provider and have any questions regarding this report, please contact the number below. For patients who have questions please contact the health care advocate that requested your imaging first. : Limited echo performed by fellow promotions specialist to assess LV function. Left ventricle [...] Infusions: heparin (porcine) infusion 1,400 Units/hr (06/06/24 2509) PRN Meds:.insulin lispro, potassium chloride ER OR [...] ischemic cardiomyopathy with HFrEF (~30% EF), prior [place] with stents, DM type 2, HTN, HLD, [...] Dain Colón MD (PGY-1) Cardiology, M1-S2, Pager #[phone] 06/07/24 Associated attestation - Melida Valdes MD [...] a lytic and brought directly to the Commercial Lines Account Manager. Cardiac catheterization demonstrated multivessel disease with [...] for further guidance. Melida Valdes MD Staff Substation Technician * Dain Colón MD - 06/06/2024 7:17 AM EST Images from the original note were not included. . Cardiology Progress Note Patient info: Name: George Mehta : 1955 PCP: Mauro Berumen MD PCP phone number: [phone] Date of Admission: 06/02/2024 ( Hospital Day 4 days ) Attending:Melida Valdes MD ID: 69 y.o. male with a h/o DM type 2, HTN, HLD, current smoker (2-3 cigarettes/day), HFrEF with anICD for low EF (~30%), and CAD with prior [place] x3 with JENNA placed in [place], [place]an[place], PAD, presented to [facility] with 1 hour of retrosternal CP (05/13) while watching TV, found to have STEMI. Active Problems: Active Hospital Problems Diagnosis STEMI (ST elevation myocardial infarction) Acute on chronic heart failure with reduced ejection fraction (HFrEF, <= 40%) Coronary artery disease involving [place] coronary artery of [place] heart without angina pectoris Type 2 diabetes [...] in the last 7068 hours. Invalid input(s): [id number] Recent Labs 06/06/24 0653 06/05/24 2231 06/05/24 1622 06/05/24 1134 06/05/24 0727 06/04/24 1943 06/04/24 1526 06/04/24 1109 06/04/24 0711 06/03/24 2005 06/03/24 1748 06/03/24 1114 POCGLU 187 238* 205* 211* 166 175 154 188 182 136 191 166 Heme No results for input(s): LDH, HAPTOGLOBIN, URICACID in the last 168 hours. ABG (Arterial Blood Gas) No results found for: PHART, PO2ART, NXZ3SJE, AVA4LUS Microbiology: Microbiology Results (Last 30 days) No results found for the last 720 hours. Imaging: Results for orders placed or performed during the hospital encounter of 06/02/24 XR Chest One View (Exam End: 06/03/2024 2:41 AM) Result Value WORKSTATION ID [id number] Impression No radiographically evident acute cardiopulmonary process. Thank you for letting us participate in the care of this patient. If you are a health care provider and have any questions regarding this report, please contact the number below. For patients who have questions please contact the health care advocate that requested your imaging first. Chest wo Contrast (Generic) (Exam End: 06/03/2024 4:33 PM) Result Value WORKSTATION ID [id number] Impression Cardiomegaly. Biventricular ICD leads in place. Thank you for letting us participate in the care of this patient. If you are a health care provider and have any questions regarding this report, please contact the number below. For patients who have questions please contact the health care advocate that requested your imaging first. : Limited echo performed by fellow promotions specialist to assess LV function. Left ventricle [...] ischemic cardiomyopathy with HFrEF (~30% EF), prior WV with stents, DM type 2, HTN, HLD, [...] Dain Colón MD (PGY-1) Cardiology, M1-S2, Pager #[phone] 06/06/24 Associated attestation - Melida Valdes MD [...] a lytic and brought directly to the Commercial Lines Account Manager. Cardiac catheterization demonstrated multivessel disease with [...] management. Help appreciated Melida Valdes MD Staff Substation Technician * Frederick Dunn MD - 06/05/2024 8:13 AM EDT Images from the original note were not included. . Cardiology Progress Note Patient info: Name: George Mehta : 1955 PCP: Mauro Berumen MD PCP phone number: [phone] Date of Admission: 06/02/2024 ( Hospital Day 3 days ) Attending:Melida Valdes MD ID: 69 y.o. male with a h/o DM type 2, HTN, HLD, current smoker (2-3 cigarettes/day), HFrEF with anICD for low EF (~30%), and CAD with prior WV x3 with JENNA placed in [place], Melanoma, PAD, presented to [facility] with 1 hour of [...] in the last 7068 hours. Invalid input(s): [id number] Recent Labs 06/05/24 1134 06/05/24 0727 06/04/24 1943 06/04/24 1526 06/04/24 1109 06/04/24 0711 06/03/24 2005 06/03/24 1748 06/03/24 1114 06/03/24 0754 06/02/24 2331 POCGLU 211* 166 175 154 188 182 136 191 166 195 156 Heme No results for input(s): LDH, HAPTOGLOBIN, URICACID in the last 168 hours. ABG (Arterial Blood Gas) No results found for: PHART, PO2ART, XKU1TCU, LGV5RZF Microbiology: Microbiology Results (Last 30 days) No results found for the last 720 hours. Imaging: Results for orders placed or performed during the hospital encounter of 06/02/24 XR Chest One View (Exam End: 06/03/2024 2:41 AM) Result Value WORKSTATION ID [id number] Impression No radiographically evident acute cardiopulmonary process. Thank you for letting us participate in the care of this patient. If you are a health care provider and have any questions regarding this report, please contact the number below. For patients who have questions please contact the health care advocate that requested your imaging first. Chest wo Contrast (Generic) (Exam End: 06/03/2024 4:33 PM) Result Value WORKSTATION ID [id number] Impression Cardiomegaly. Biventricular ICD leads in place. Thank you for letting us participate in the care of this patient. If you are a health care provider and have any questions regarding this report, please contact the number below. For patients who have questions please contact the health care advocate that requested your imaging first. : Limited echo performed by fellow promotions specialist to assess LV function. Left ventricle [...] ischemic cardiomyopathy with HFrEF (~30% EF), prior WV with stents, DM type 2, HTN, HLD, [...] all the information they need regarding the DUDE WRANGLER-D.Plan for MRI tomorrow. Starting 40 mg IV [...] a lytic and brought directly to the Commercial Lines Account Manager. Cardiac catheterization demonstrated multivessel disease with [...] maintenance of 40. Melida Valdes MD Staff Substation Technician * Migel Javier RN - 06/05/2024 6:21 AM EDT Implanted device record scanned into: Chart Review-->Media-->External Cardiology-->03/25/2024. Medtronic [place] MRI Quad CRTD [id number] Serial #: [id number] DDD mode A + Bi/V Rates 50-130 Migel Javier RN * Dain Colón MD - 06/04/2024 11:16 AM EDT Implant Records Requested Type: DUDE WRANGLER-D Shank Pinner: Medtronic Product: [id number] Amplia MRI MRI compatibility: Compatible for 1.5-3 T Model #: [id number] Placed at: [place], [place] Records requested for MRI: 1. Operative report 2. Implant log I requested that these records be sent to our MRI department, Dain Colón MD 06/04/24 11:58 AM * Dain Colón MD - 06/04/2024 6:57 AM EDT Images from the original note were not included. . Cardiology Progress Note Patient info: Name: George Mehta : 1955 PCP: Mauro Berumen MD PCP phone number: [phone] Date of Admission: 06/02/2024 ( Hospital Day 2 days ) Attending:Delroy Fofana MD ID: 69 y.o. male with a h/o DM type 2, HTN, HLD, current smoker (2-3 cigarettes/day), HFrEF with anICD for low EF (~30%), and CAD with prior WV x3 with JENNA placed in [place], Melanoma, PAD, presented to [facility] with 1 hour of [...] in the last 7068 hours. Invalid input(s): [id number] Recent Labs 06/03/24 2005 06/03/24 1748 06/03/24 1114 06/03/24 0754 06/02/24 2331 POCGLU 136 191 166 195 156 Heme No results for input(s): LDH, HAPTOGLOBIN, URICACID in the last 168 hours. ABG (Arterial Blood Gas) No results found for: PHART, PO2ART, ITC6TOX, RKG7DOV Microbiology: Microbiology Results (Last 30 days) No results found for the last 720 hours. Imaging: Results for orders placed or performed during the hospital encounter of 06/02/24 XR Chest One View (Exam End: 06/03/2024 2:41 AM) Result Value WORKSTATION ID [id number] Impression No radiographically evident acute cardiopulmonary process. Thank you for letting us participate in the care of this patient. If you are a health care provider and have any questions regarding this report, please contact the number below. For patients who have questions please contact the health care advocate that requested your imaging first. Chest wo Contrast (Generic) (Exam End: 06/03/2024 4:33 PM) Result Value WORKSTATION ID [id number] Impression Cardiomegaly. Biventricular ICD leads in place. Thank you for letting us participate in the care of this patient. If you are a health care provider and have any questions regarding this report, please contact the number below. For patients who have questions please contact the health care advocate that requested your imaging first. : Limited echo performed by fellow promotions specialist to assess LV function. Left ventricle [...] ischemic cardiomyopathy with HFrEF (~30% EF), prior WV with stents, DM type 2, HTN, HLD, [...] -Lasix 40 mg IV given in the sleep lab technician; assess diuretic response, consider re-dosing [...] @YESSI@ Dain Colón MD (PGY-1) Cardiology M1-S2, #[id number] 06/04/2024, 6:57 AM Associated attestation - Melida [...] a lytic and brought directly to the Commercial Lines Account Manager. Cardiac catheterization demonstrated multivessel disease with [...] -Diuresis with Timothyix Melida Valdes MD Staff Substation Technician * Fatmata Mcallister PT - 06/03/2024 [...] determined (CABG vs PCI) Fatmata Mcallister PT, [facility] Pager [phone] Inpatient Physical Therapy * Marlin Gómez MD [...] Marlin Gómez MD Cardiology S2, Pager # [phone] 06/03/2024 * Delroy Fofana MD - 06/03/2024 7:16 AM EDT Images from the original note were not included. . Cardiology Progress Note Patient info: Name: George Mehta : 1955 PCP: Mauro Berumen MD PCP phone number: [phone] Date of Admission: 06/02/2024 ( Hospital Day 1 day ) Attending:Nuha Rojo MD ID: 69 y.o. male with a h/o DM type 2, HTN, HLD, current smoker (2-3 cigarettes/day), HFrEF with anICD for low EF (~30%), and CAD with prior WV x3 with JENNA placed in [place], Melanoma, PAD, presented to [facility] with 1 hour of [...] in the last 7068 hours. Invalid input(s): GJFQFVDPHSA3H Recent Labs 06/02/24 2331 POCGLU 156 Heme No results for input(s): LDH, HAPTOGLOBIN, URICACID in the last 168 hours. ABG (Arterial Blood Gas) No results found for: PHART, PO2ART, TBT9RXD, RHI8ZFF Microbiology: Microbiology Results (Last 30 days) No results found for the last 720 hours. Imaging: Results for orders placed or performed during the hospital encounter of 06/02/24 XR Chest One View (Exam End: 06/03/2024 2:41 AM) Result Value WORKSTATION ID [id number] Impression No radiographically evident acute cardiopulmonary process. Thank you for letting us participate in the care of this patient. If you are a health care provider and have any questions regarding this report, please contact the number below. For patients who have questions please contact the health care advocate that requested your imaging first. : Limited echo performed by fellow promotions specialist to assess LV function. Left ventricle [...] ischemic cardiomyopathy with HFrEF (~30% EF), prior WV with stents, DM type 2, HTN, HLD, [...] -Lasix 40 mg IV given in the sleep lab technician; assess diuretic response, consider re-dosing [...] plan of care per Dain Colón MD (certified medical aide). Please refer to his note above for details. Very pleasant 69 year old male but he is obese, diabetic, and he is a SMOKER with known prior CAD and moderately reduced LVEF (30%). He has a pacer. History of surgical resection of melanoma on his head. The patient was transferred overnight to [facility] [place] a STEM[place]. He was treated initially with a lytic (TNK) and brought directly to the sleep lab technician. The cath demonstrated 3VD with [...] - 06/13/2024 10:58 AM EST ICU Blue (#[id number]) H&P Patient info: Name: George Mehta : 1955 PCP: Maruo Berumen MD PCP phone number: [phone] Date of Admission: 06/02/2024 ( Hospital Day 11 days ) Attending:Haja Byrnes MD ID: George Mehta is a 69 y.o. male with a h/o DM type 2, HTN, HLD, current smoker (2-3 cigarettes/day), HFrEF with an ICD for low EF (~30%), and CAD with prior WV x3 with JENNA placed in [facility], PAD, presented to [facility] with 1 hour of retrosternal CP (05/13) while watching TV, foundto have STEMI. HPI: Shahnaz Scanlon H&P 06/02 69 y.o. male with a h/o DM type 2, HTN, HLD, current smoker (2-3 cigarettes/day), HFrEF with an ICD for low EF (~30%), and CAD with prior WV x3 with JENNA placed in [place], [facility], PAD, presented to [facility] with 1 hour of retrosternal CP (05/13) while watching TV. CP was non-radiating, not asso ciated with diaphoresis, nausea, or SOB. Denies orthopnea, MARTÍNEZ, palpitations, or LE edema. ECG showed findings consistent with anterior STEMI. He received TNK and was transferred for PCI. Coronary angiography showed a small, non-dominant RCA with rkss-ou-mhcpjftz disease and a dominant,heavily calcified left system with prior stents in the LAD and OM. The LM bifurcates into the LAD and LCX, both heavily calcified. The proximal LCX has a 75% calcified, aneurysmal lesion, and an 80% calcified lesion distally before a large OM2. OM1 is a LAMINATION OPERATOR with in-stent restenosis, filling retrograde via [...] 40 mg Lasix was administered in the sleep lab technician. Cardiac surgery was consulted and [...] Blood Gas) No results for input(s): PHART, KNQ7SNR, PO2ART, LWF9MRY, LACTATEVEN, IPE4QPQ, PFRATIOART2 in the last 168 hours. VBG (Venous Blood Gas) Recent Labs 06/10/24 1742 PHVEN 7.34 PO2VEN 24 BPZ5AVF 27.4 Mixed Venous Sat No results for input(s): X5HFIH7 in the last 168 hours. Intake/Output Summary [...] in the last 7068 hours. Invalid input(s): BLZVKAKOKPN4G Recent Labs 06/13/24 0741 06/13/24 0325 06/12/24 2353 06/12/24 1932 06/12/24 1541 06/12/24 1121 06/12/24 0800 06/12/24 0425 06/11/24 2356 06/11/24 2025 06/11/24 1624 06/11/24 1108 POCGLU 126 99 141 158 113 207* 169 132 135 210* 81 233* Heme No results for input(s): LDH, HAPTOGLOBIN, URICACID in the last 168 hours. ABG (Arterial Blood Gas) No results for input(s): PHART, FJU0EDL, PO2ART, YRR4NVK, LACTATEVEN, GUA1YAZ, PFRATIOART2 in the last 168 hours. VBG (Venous Blood Gas) Recent Labs 06/10/24 1742 PHVEN 7.34 PO2VEN 24 YTZ6TAM 27.4 Mixed Venous Sat No results for input(s): F4RADA8 in the last 168 hours. Microbiology: Microbiology Results (Last 30 days) No results found for the last 720 hours. Assessment & Plan: George Mehta is a 69 y.o. male with CAD, ischemic cardiomyopathy with HFrEF (~30% EF), prior WV with stents, DM type 2, HTN, HLD, active smoker, presented with anterior STEMI. Angiography revealedsevere multivessel CAD with extensive calcification and YUE 3 flow in all vessels, without a clearculprit lesion. Currently pain-free after TNK, Plavix, ASA, and heparin, with mildly elevated LVEDPat 40 mmHg and mild volume overload. Admitted to [facility] for clarence-operative management following IABP placement. Planned for CABG 06/14. 06/13/2024 Patient now s/p IABP placement. Procedure occurred without complication. IABP set to 1:1. Will continue with heparin for ASCVD. Plan for CABG 06/14. Patient NPO at [place]. #ASCVD / STEMI: -Holding Plavix; continue ASA [...] (Give Meds) Daily Healthy Menu Choices/Cardiac diet ([facility]-Diet) DVT Prophylaxis: SCD GI [...] TUD (abstinent since admission), ASCVD with multipleprior WV and PCIs, ICM/HFrEF LVEF 30% (all territories [...] in the chart Rebeca Prado MD It Technical Specialist PGY6 [id number] * Shahnaz Scanlon MD [...] low EF (~30%), and CAD with prior WV x3 with JENNA placed in [place], Melanoma, PAD, presented to [facility] with 1 hour of retrosternal CP (05/13) while watching TV. CP was non-radiating, not assoc iated with diaphoresis, nausea, or SOB. Denies orthopnea, MARTÍNEZ, palpitations, or LE edema. ECG showed findings consistent with anterior STEMI. He received TNK and was transferred for PCI. Coronary angiography showed a small, non-dominant RCA with ncvq-tg-nopamryo disease and a dominant,heavily calcified left system with prior stents in the LAD and OM. The LM bifurcates into the LAD and LCX, both heavily calcified. The proximal LCX has a 75% calcified, aneurysmal lesion, and an 80% calcified lesion distally before a large OM2. OM1 is a LAMINATION OPERATOR with in-stent restenosis, filling retrograde via [...] 40 mg Lasix was administered in the sleep lab technician. Past Medical History: As per [...] normal. Behavior: Behavior normal. Diagnostics: [facility] 06/02/2024 Coronary angiography revealed [...] ischemic cardiomyopathy with HFrEF (~30% EF), prior WV with stents, DM type 2, HTN, HLD, [...] -Lasix 40 mg IV given in the sleep lab technician; assess diuretic response. -Continue carvedilol; [...] for follow-up [facility] [address] [facility] [address] Cardiac Rehab, [address] [facility] [address] RN AVILA confirmed with [facility] that they [...] MEDICARE Payor: AAR MANAGED MEDICARE / Plan: [facility] MANAGED MEDICARE COMPLETE / Product Type: [...] Roberts RN - 06/18/2024 10:50 AM EST [facility] George Mehta was seen today regarding participation in the outpatient Phase 2 Cardiac Rehabilitation at [facility]. The patient agrees to [...] recs Patient is insured through: Primary Insurance: Clerk MANAGED MEDICARE Payor: [employer] MANAGED MEDICARE / Plan: AARP RPPO MANAGED [...] [facility] [address] [facility] [address] PHONE: [phone] FAX: [phone] Transportation: family or friend will provide Barriers [...] Agency/Support Group Needs: Homecare agency Agency Choices: [facility]: Medication checks, Registered Nurse, Physical Therapy Agency Referrals: pending clinical course and PT/OT recs [facility]. [address] [facility] [address] PHONE: [phone] FAX: [phone] Transportation: family or friend will provide Barriers [...] Loja MD - 06/14/2024 8:48 AM EST [facility] Operative Note Patient Name: George Mehta : [id number] MR#: [id number] Case Date: 06/14/2024 Surgeon: Surgeons and Role: * Bobby Loja MD - Primary * Rashi Bass PA - Physician Tar Distillation Supervisor Preoperative diagnosis: CAD, MARIALUISA flickering mass on [...] procedures today and tomorrow. Report called to [facility] - all belongings with patient. 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 INDIVIDUALIZED FALL PREVENTION [...] Agency/Support Group Needs: Homecare agency, Agency Choices: [facility]. Home Health Services: Medication checks, Registered Nurse, Physical Therapy Agency Referrals: [facility]. [address] [place] [address] RN / PT Routed 06/10 Transportation: family [...] with home health services when medically ready. managed care liaison/Claim Auditor will continue to follow patient???s progress and remain available if situation changes for coordination of care, psychosocial support and/or discharge planning. Anticipated Date of Discharge: 06/18/2024 Mariia Montero RN CM Extension [phone] * Plan of Care - Migel Javier [...] No Patient is insured through: Primary Insurance: [facility] MANAGED MEDICARE Payor: [facility] MANAGED MEDICARE / Plan: [facility] MANAGED MEDICARE COMPLETE / Product Type: [...] consult for high risk PCI vs CABG managed care liaison/Claim Auditor will continue to follow patient???s progress and remain available if situation changes for coordination of care, psychosocial support and/or discharge planning. 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 Diabetes History: George Mehta has [...] Breakfast- varies - eggs with khoury or hungarian muffin Lunch- turkey sandwich Supper- meat and [...] ischemic cardiomyopathy with HFrEF (~30% EF), prior WV with stents, DM type 2, HTN, HLD, [...] Baumann APRN Endocrinology Diabetes Management Service Pager: [phone] Weekends please page [phone] 80 minute visit was spent in counseling [...] y.o. male with a PMHx of previous WV s/p PCI x3, ICM/HFrEF (LVEF 30%) s/p ICD, DMII, HTN, HLD, remote melanoma, and smoker who presented to [facility] last night via EMS after developing acute, severe chest pain while watching TV. Patient was ruled in for STEMI, given TNK, ASA, plavix, heparin gtt, and sent to [facility] for coronary angiography. LHC demonstrated severely calcified left coronary system with notable LCx 75/80% lesions and LAMINATION OPERATOR OM1 with ISR with collateral retrograde [...] elevation myocardial infarction) Past Medical History: previous WV s/p PCI x3 ICM/HFrEF (LVEF 30%) s/p [...] is large. 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 Admitted From: [...] surrogate would be surrogate decision maker per [place] surrogate decision making law. (Only good for 180 days) Any patient receiving care in [place] must abide by [place] law. The hierarchy for surrogate decision making [...] (i) The agent with financial power of litigation attorney associate or a conservator appointed in accordance with [...] homeless or living in a detention (including now)?: No In the past 12 months has the [place], gas, oil, or water [employer] threatened to shut off services in your [...] the bathroom) Home Address confirmed as: [address] [place] [address] [address] [facility] [address] Social & Family Supports: All names listed [...] MEDICARE Payor: AARP MANAGED MEDICARE / Plan: [facility] MANAGED MEDICARE COMPLETE / Product Type: *No Product type* / Secondary Insurance: N/A ; Prescription Coverage: Yes Preferred Pharmacy: [id number] - [facility], [place] - [address] [facility] [address] [facility] [address] [place] Status: Patient is a : No Primary Care Provider confirmed: Mauro Berumen MD [phone] Patient/Caregiver Goals of Treatment: Potential Needs for [...] care as indicated. [facility], [phone]. [phone] * Brief Op Note - Angeles Gaxiola PA - 06/03/2024 12:23 AM EDT Preliminary Cardiac Catheterization Procedure Note: Patient Name: George Mehta : [id number] MR#: [id number] Case Date: 06/02/2024 - 06/03/2024 Emotional Disabilities Teacher: Surgeons and Role: * Nuha Shen MD - Primary * Angeles Gaxiola PA - Physician Tar Distillation Supervisor Preoperative diagnosis: STEMI Postoperative diagnosis: * STEMI * Procedure(s) performed: RRA access [facility] Coronary angiogram IVUS LM/LAD/LCX Access: 6 Fr RRA A time-out was conducted prior to the start of the procedure to verify the correct patient and procedure, procedure location, and all relevant critical information. Preliminary findings: 69 year old current smoker (1-2 cigarette's per day), DM type 2, hypertension, dyslipidemia, ICD for HFrEF/low EF (~30%), CAD with prior WV and 3 stents historically (in [place]) who presented to [facility] with 1 hour of [...] is large. OM1 appears to be a LAMINATION OPERATOR, with in stentrestenosis and fills retrograde [...] receive 40 mg of lasix in the sleep lab technician. 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) 06/14/2024 7:34 AM EST CAD Endoscopy W/Video-Asst Vein [place], Cabg ([id number]) 06/14/2024 7:34 AM EST CAD Cabg, Artery-Vein, Two ([id number]) 06/14/2024 7:34 AM EST CAD Cabg, Arterial, Single ([id number]) 06/14/2024 7:34 AM EST CAD TRANSESOPHAGEAL ECHOCARDIOGRAM IN THE OR Routine 06/14/2024 7:20 AM EST Coronary artery disease involving [place] coronary artery of [place] heart without angina pectoris POC, GLUCOSE Routine [...] 06/13/2024 4:09 PM EST TYPE AND SCREEN ([facility]CGP/RAFITA) STAT 06/13/2024 11:53 AM EST POC, GLUCOSE [...] - 199 mg/dL 06/21/2024 3:51 AM EST [facility] Comment:Supplemental ranges: <140 mg/dL before meals <180 mg/dL all other times of the day. Blood CAPILLARY BLOOD / Unknown 06/21/2024 3:51 AM EST 06/21/2024 3:51 AM EST Bobby Loja MD POINT OF CARE TEST O RDERABLES [facility] [place] [address] * (ABNORMAL) Basic Metabolic Panel (06/21/2024 2:09 AM EST) Glucose 169 65 - 199 mg/dL 06/21/2024 3:10 AM EST [facility] Comment:Glucose Concentratio n >=200 mg/dL plus symptoms is consistent with Diabetes Mellitus. Blood Urea Nitrogen 27(H) 10 - 20 mg/dL 06/21/2024 3:10 AM [facility] Creatinine 1.24 0.80 - 1.50 mg/dL 06/21/2024 3:10 AM [facility] Sodium 138 135 - 145 mMol/L 06/21/2024 3:10 AM EST [facility] Potassium 4.2 3.5 - 5.0 mMol/L 06/21/2024 3:10 AM EST [facility] Chloride 100 98 - 107 [...] mL/min/1. 73 m?? 06/21/2024 3:10 AM EST [facility] Comment: This patient's estimated GFR [...] APRN CHEMISTRY ORDERABL ES Performing Organization Address City/[facility]/ZIP Co de Phone Number [facility] [place] [address] * POC, GLUCOSE (06/21/2024 12:04 AM EST) Glucometer, POC 157 65 - 199 mg/dL 06/21/2024 12:04 AM EST [facility] Comment:Supplemental ranges: <140 mg/dL before meals <180 mg/dL all other times of the day. Blood CAPILLARY BLOOD / Unknown 06/21/2024 12:04 AM EST 06/21/2024 12:04 AM EST Bobby Loja MD POINT OF CARE TEST O RDERABLES [facility] [place] [address] * POC, GLUCOSE (06/20/2024 11:14 PM EST) Glucometer, POC 67 65 - 199 mg/dL 06/20/2024 11:14 PM EST [facility] Comment:Supplemental ranges: <140 mg/dL before meals <180 mg/dL all other times of the day. Blood CAPILLARY BLOOD / Unknown 06/20/2024 11:14 PM EST 06/20/2024 11:14 PM EST Narrative Authorizing Provider Result Saranya Loja MD POINT OF CARE TEST O RDBECKIE Performing Organization Address City/[facility]/ZIP Co de Phone Number [facility] [place] [address] * POC, GLUCOSE (06/20/2024 7:16 PM EST) Glucometer, POC 132 65 - 199 mg/dL 06/20/2024 7:16 PM EST [facility] Comment:Supplemental ranges: <140 mg/dL before meals <180 mg/dL all other times of the day. Blood CAPILLARY BLOOD / Unknown 06/20/2024 7:16 PM EST 06/20/2024 7:16 PM EST Narrative Authorizing Provider Result Saranya Loja MD POINT OF CARE TEST Abimael MAHER Performing Organization Address [facility] Co de Phone Number [facility] [place] [address] * POC, GLUCOSE (06/20/2024 3:39 PM EST) Glucometer, POC 124 65 - 199 mg/dL 06/20/2024 3:40 PM EST [facility] Comment:Supplemental ranges: <140 mg/dL before meals <180 mg/dL all other times of the day. Blood CAPILLARY BLOOD / Unknown 06/20/2024 3:39 PM EST 06/20/2024 3:40 PM EST Narrative Authorizing Provider Result Saranya Loja MD POINT OF CARE TEST O NIKA Performing Organization Address City/[facility]/ZIP Co de Phone Number [facility] [place] [address] * POC, GLUCOSE (06/20/2024 12:02 PM EST) Glucometer, POC 173 65 - 199 mg/dL 06/20/2024 12:03 PM EST [facility] Comment:Supplemental ranges: <140 mg/dL before meals <180 mg/dL all other times of the day. Blood CAPILLARY BLOOD / Unknown 06/20/2024 12:02 PM EST 06/20/2024 12:03 PM EST Bobby Loja MD POINT OF CARE TEST Abimael MAHER Performing Organization Address [facility] Co de Phone Number [facility] [place] [address] * POC, GLUCOSE (06/20/2024 7:10 AM EST) Glucometer, POC 130 65 - 199 mg/dL 06/20/2024 7:11 AM [facility] Comment:Supplemental ranges: <140 mg/dL before meals <180 mg/dL all other times of the day. Blood CAPILLARY BLOOD / Unknown 06/20/2024 7:10 AM EST 06/20/2024 7:11 AM EST Bobby Loja MD POINT OF CARE TEST Abimael MAHER Performing Organization Address [facility] de Phone Number [facility] [place] [address] * (ABNORMAL) Basic Metabolic Panel (06/20/2024 2:28 [...] - 5.0 mMol/L 06/20/2024 3:06 AM EST [facility] Chloride 100 98 - 107 mMol/L 06/20/2024 3:06 AM EST [facility] Carbon Dioxide 29 22 - 31 mMol/L 06/20/2024 3:06 AM EST [facility] Anion Gap 8 5 - 15 mMol/L 06/20/2024 3:06 AM [facility] Calcium 8.4(L) 8.5 - 10.5 mg/dL 06/20/2024 3:06 AM EST [facility] Est Glomerular Filtration Rate - Male 56 mL/min/1. 73 m?? 06/20/2024 3:06 AM EST [facility] Comment: This patient's estimated GFR [...] EST Keila Hanley APRN CHEMISTRY ORDERABL ES [facility] [place] [address] * POC, GLUCOSE (06/20/2024 12:32 AM EST) Glucometer, POC 86 65 - 199 mg/dL 06/20/2024 12:32 AM EST [facility] Comment:Supplemental ranges: <140 mg/dL before meals <180 mg/dL all other times of the day. Blood CAPILLARY BLOOD / Unknown 06/20/2024 12:32 AM EST 06/20/2024 12:32 AM EST Bobby Loja MD POINT OF CARE TEST O NIKA Performing Organization Address City/[facility]/ZIP Co de Phone Number [facility] [place] [address] * (ABNORMAL) POC, GLUCOSE (06/20/2024 12:02 AM EST) Glucometer, POC 59(L) 65 - 199 mg/dL 06/20/2024 12:02 AM EST [facility] Comment:Supplemental ranges: <140 mg/dL before meals <180 mg/dL all other times of the day. Blood CAPILLARY BLOOD / Unknown 06/20/2024 12:02 AM EST 06/20/2024 12:03 AM EST Bobby Loja MD POINT OF CARE TEST O NIKA Performing Organization Address [facility] Co de Phone Number [facility] [place] [address] * POC, GLUCOSE (06/19/2024 8:15 PM EST) Glucometer, POC 131 65 - 199 mg/dL 06/19/2024 8:15 PM EST [facility] Comment:Supplemental ranges: <140 mg/dL before meals <180 mg/dL all other times of the day. Blood CAPILLARY BLOOD / Unknown 06/19/2024 8:15 PM EST 06/19/2024 8:15 PM EST Bobby Loja MD POINT OF CARE TEST O NIKA Performing Organization Address City/[facility]/ZIP Co de Phone Number [facility] [place] [address] * POC, GLUCOSE (06/19/2024 6:01 PM EST) Glucometer, POC 129 65 - 199 mg/dL 06/19/2024 6:01 PM EST [facility] Comment:Supplemental ranges: <140 mg/dL before meals <180 mg/dL all other times of the day. Blood CAPILLARY BLOOD / Unknown 06/19/2024 6:01 PM EST 06/19/2024 6:02 PM EST Narrative Authorizing Provider Result Saranya Loja MD POINT OF CARE TEST O RDBECKIE Performing Organization Address City/[facility] Co de Phone Number [facility] [place] [address] * POC, GLUCOSE (06/19/2024 4:51 PM EST) Glucometer, POC 155 65 - 199 mg/dL 06/19/2024 4:51 PM EST [facility] Comment:Supplemental ranges: <140 mg/dL before meals <180 mg/dL all other times of the day. Blood CAPILLARY BLOOD / Unknown 06/19/2024 4:51 PM EST 06/19/2024 4:51 PM EST Narrative Authorizing Provider Result Saranya Loja MD POINT OF CARE TEST O NIKA Performing Organization Address [facility] Co de Phone Number [facility] [place] [address] * POC, GLUCOSE (06/19/2024 12:37 PM EST) Glucometer, POC 136 65 - 199 mg/dL 06/19/2024 12:37 PM EST [facility] Comment:Supplemental ranges: <140 mg/dL before meals <180 mg/dL all other times of the day. Blood CAPILLARY BLOOD / Unknown 06/19/2024 12:37 PM EST 06/19/2024 12:37 PM EST Narrative Authorizing Provider Result Saranya Loja MD POINT OF CARE TEST O NIKA Performing Organization Address City/[facility] Co de Phone Number [facility] [place] [address] * POC, GLUCOSE (06/19/2024 11:20 AM EST) Glucometer, POC 185 65 - 199 mg/dL 06/19/2024 11:21 AM EST [facility] Comment:Supplemental ranges: <140 mg/dL before meals <180 mg/dL all other times of the day. Blood CAPILLARY BLOOD / Unknown 06/19/2024 11:20 AM EST 06/19/2024 11:21 AM EST Bobby Loja MD POINT OF CARE TEST O NIKA Performing Organization Address City/[facility]/ZIP Co de Phone Number [facility] [place] [address] * POC, GLUCOSE (06/19/2024 7:21 AM EST) Glucometer, POC 125 65 - 199 mg/dL 06/19/2024 7:21 AM EST [facility] Comment:Supplemental ranges: <140 mg/dL before meals <180 mg/dL all other times of the day. Blood CAPILLARY BLOOD / Unknown 06/19/2024 7:21 AM EST 06/19/2024 7:22 AM EST Bobby Loja MD POINT OF CARE TEST O NIKA Performing Organization Address [facility] Co de Phone Number [facility] [place] [address] * POC, GLUCOSE (06/19/2024 4:52 AM EST) Glucometer, POC 125 65 - 199 mg/dL 06/19/2024 4:52 AM EST [facility] Comment:Supplemental ranges: <140 mg/dL before meals <180 mg/dL all other times of the day. Blood CAPILLARY BLOOD / Unknown 06/19/2024 4:52 AM EST 06/19/2024 4:52 AM EST Bobby Loja MD POINT OF CARE TEST O NIKA Performing Organization Address City/[facility]/ZIP Co de Phone Number [facility] [place] [address] * POC, GLUCOSE (06/19/2024 4:13 AM EST) Glucometer, POC 67 65 - 199 mg/dL 06/19/2024 4:13 AM EST [facility] Comment:Supplemental ranges: <140 mg/dL before meals <180 mg/dL all other times of the day. Blood CAPILLARY BLOOD / Unknown 06/19/2024 4:13 AM EST 06/19/2024 4:13 AM EST Bobby Loja MD POINT OF CARE TEST O NIKA Performing Organization Address [facility] Co de Phone Number [facility] [place] [address] * (ABNORMAL) POC, GLUCOSE (06/19/2024 3:48 AM EST) Glucometer, POC 51(LLL) 65 - 199 mg/dL 06/19/2024 3:48 AM EST [facility] Comment:Supplemental ranges: <140 mg/dL before meals <180 mg/dL all other times of the day. Blood CAPILLARY BLOOD / Unknown 06/19/2024 3:48 AM EST 06/19/2024 3:48 AM EST Bobby Loja MD POINT OF CARE TEST O RDERAPIETER Performing Organization Address City/[facility]/ZIP Co de Phone Number [facility] [place] [address] * (ABNORMAL) Basic Metabolic Panel (06/19/2024 3:44 AM EST) Glucose 53(LLL) 65 - 199 mg/dL 06/19/2024 4:48 AM EST [facility] Comment:Glucose Concentratio n >=200 mg/dL plus symptoms is consistent with Diabetes Mellitus. Blood Urea Nitrogen 42(H) 10 - 20 mg/dL 06/19/2024 4:48 AM EST [facility] Creatinine 1.29 0.80 - 1.50 mg/dL 06/19/2024 4:48 AM EST [facility] Sodium 138 135 - 145 [...] EST 06/19/2024 3:51 AM EST Keila Dayan SHIP ENGINEER CHEMISTRY ORDERABL ES [facility] [place] [address] * POC, GLUCOSE (06/19/2024 12:23 AM EST) Glucometer, POC 82 65 - 199 mg/dL 06/19/2024 12:23 AM [facility] Comment:Supplemental ranges: <140 mg/dL before meals <180 mg/dL all other times of the day. Blood CAPILLARY BLOOD / Unknown 06/19/2024 12:23 AM EST 06/19/2024 12:23 AM EST Narrative Authorizing Provider Result Saranya Loja MD POINT OF CARE TEST O NIKA Performing Organization Address City/[facility]/ZIP Co de Phone Number [facility] [place] [address] * POC, GLUCOSE (06/18/2024 11:08 PM EST) Glucometer, POC 73 65 - 199 mg/dL 06/18/2024 11:08 PM EST [facility] Comment:Supplemental ranges: <140 mg/dL before meals <180 mg/dL all other times of the day. Blood CAPILLARY BLOOD / Unknown 06/18/2024 11:08 PM EST 06/18/2024 11:08 PM EST Bobby Loja MD POINT OF CARE TEST Abimael MAHER Performing Organization Address [facility] Co de Phone Number [facility] [place] [address] * POC, GLUCOSE (06/18/2024 7:32 PM EST) Glucometer, POC 167 65 - 199 mg/dL 06/18/2024 7:32 PM EST [facility] Comment:Supplemental ranges: <140 mg/dL before meals <180 mg/dL all other times of the day. Blood CAPILLARY BLOOD / Unknown 06/18/2024 7:32 PM EST 06/18/2024 7:32 PM EST Narrative Authorizing Provider Result Saranya Loja MD POINT OF CARE TEST O NIKA Performing Organization Address City/[facility]/ZIP Co de Phone Number [facility] [place] [address] * POC, GLUCOSE (06/18/2024 6:08 PM EST) Glucometer, POC 140 65 - 199 mg/dL 06/18/2024 6:09 PM EST [facility] Comment:Supplemental ranges: <140 mg/dL before meals <180 mg/dL all other times of the day. Blood CAPILLARY BLOOD / Unknown 06/18/2024 6:08 PM EST 06/18/2024 6:09 PM EST Bobby Loja MD POINT OF CARE TEST O NIKA [facility] [place] [address] * POC, GLUCOSE (06/18/2024 4:17 PM EST) Glucometer, POC 144 65 - 199 mg/dL 06/18/2024 4:17 PM EST [facility] Comment:Supplemental ranges: <140 mg/dL before meals <180 mg/dL all other times of the day. Blood CAPILLARY BLOOD / Unknown 06/18/2024 4:17 PM EST 06/18/2024 4:17 PM EST Bobby Loja MD POINT OF CARE TEST O NIKA Performing Organization Address [facility]/ZIP Co de Phone Number [facility] [place] [address] * POC, GLUCOSE (06/18/2024 12:09 PM EST) Glucometer, POC 180 65 - 199 mg/dL 06/18/2024 12:09 PM EST [facility] Comment:Supplemental ranges: <140 mg/dL before meals <180 mg/dL all other times of the day. Blood CAPILLARY BLOOD / Unknown 06/18/2024 12:09 PM EST 06/18/2024 12:09 PM EST Bobby Loja MD POINT OF CARE TEST O NIKA [facility] [place] [address] * POC, GLUCOSE (06/18/2024 7:49 AM EST) Glucometer, POC 125 65 - 199 mg/dL 06/18/2024 7:50 AM EST [facility] Comment:Supplemental ranges: <140 mg/dL before meals <180 mg/dL all other times of the day. Blood CAPILLARY BLOOD / Unknown 06/18/2024 7:49 AM EST 06/18/2024 7:50 AM EST Bobby Loja MD POINT OF CARE TEST O RDERABLES [facility] [place] [address] * (ABNORMAL) Basic Metabolic Panel (06/18/2024 4:19 [...] mL/min/1. 73 m?? 06/18/2024 5:03 AM EST [facility] Comment: This patient's estimated GFR [...] APRN CHEMISTRY ORDERABL ES Performing Organization Address City/[facility]/ZIP Co de Phone Number [facility] [place] [address] * POC, GLUCOSE (06/18/2024 3:50 AM EST) Glucometer, POC 99 65 - 199 mg/dL 06/18/2024 3:51 AM EST [facility] Comment:Supplemental ranges: <140 mg/dL before meals <180 mg/dL all other times of the day. Blood CAPILLARY BLOOD / Unknown 06/18/2024 3:50 AM EST 06/18/2024 3:51 AM EST Bobby Loja MD POINT OF CARE TEST O RDERABLES [facility] [place] [address] * POC, GLUCOSE (06/17/2024 11:10 PM EST) Glucometer, POC 92 65 - 199 mg/dL 06/17/2024 11:10 PM EST [facility] Comment:Supplemental ranges: <140 mg/dL before meals <180 mg/dL all other times of the day. Blood CAPILLARY BLOOD / Unknown 06/17/2024 11:10 PM EST 06/17/2024 11:10 PM EST Bobby Loja MD POINT OF CARE TEST O NIKA Performing Organization Address [facility] Co de Phone Number [facility] [place] [address] * POC, GLUCOSE (06/17/2024 7:54 PM EST) Glucometer, POC 126 65 - 199 mg/dL 06/17/2024 7:54 PM EST [facility] Comment:Supplemental ranges: <140 mg/dL before meals <180 mg/dL all other times of the day. Blood CAPILLARY BLOOD / Unknown 06/17/2024 7:54 PM EST 06/17/2024 7:54 PM EST Bobby Loja MD POINT OF CARE TEST O NIKA Performing Organization Address [facility] Co de Phone Number [facility] [place] [address] * POC, GLUCOSE (06/17/2024 4:07 PM EST) Glucometer, POC 141 65 - 199 mg/dL 06/17/2024 4:12 PM EST [facility] Comment:Supplemental ranges: <140 mg/dL before meals <180 mg/dL all other times of the day. Blood CAPILLARY BLOOD / Unknown 06/17/2024 4:07 PM EST 06/17/2024 4:12 PM EST Narrative Authorizing Provider Result Saranya Loja MD POINT OF CARE TEST O NIKA Performing Organization Address City/[facility] Co de Phone Number [facility] [place] [address] * XR Chest PA & Lateral (Generic) (06/17/2024 1:46 PM EST) WORKSTATION ID [id number] RAD Anatomical Region Laterality Modality Chest N/A [...] who have questions please contact the health care advocate that requested your imaging first. ? Narrative [...] patients who have questions please contactthe health care advocate that requested your imaging first. Keila Hanley SHIP ENGINEER IMG DX ORDERABLES * (ABNORMAL) POC, GLUCOSE (06/17/2024 11:04 AM EST) Glucometer, POC 245(H) 65 - 199 mg/dL 06/17/2024 11:04 AM EST [facility] Comment:Supplemental ranges: <140 mg/dL before meals <180 mg/dL all other times of the day. Blood CAPILLARY BLOOD / Unknown 06/17/2024 11:04 AM EST 06/17/2024 11:04 AM EST Bobby Loja MD POINT OF CARE TEST O NIKA Performing Organization Address City/[facility]/ZIP Co de Phone Number [facility] [place] [address] * POC, GLUCOSE (06/17/2024 7:49 AM EST) Glucometer, POC 141 65 - 199 mg/dL 06/17/2024 7:55 AM EST [facility] Comment:Supplemental ranges: <140 mg/dL before meals <180 mg/dL all other times of the day. Blood CAPILLARY BLOOD / Unknown 06/17/2024 7:49 AM EST 06/17/2024 7:55 AM EST Bobby Loja MD POINT OF CARE TEST O NIKA [facility] [place] [address] * POC, GLUCOSE (06/17/2024 4:16 AM EST) Pathologist [facility] Glucometer, POC 139 65 - 199 mg/dL 06/17/2024 4:16 AM EST [facility] Comment:Supplemental ranges: <140 mg/dL before meals <180 mg/dL all other times of the day. Blood CAPILLARY BLOOD / Unknown 06/17/2024 4:16 AM EST 06/17/2024 4:17 AM EST Bobby Loja MD POINT OF CARE TEST O RDERABLES Performing Organization Address City/[facility]/ZIP Co de Phone Number [facility] [place] [address] * Lactate, Whole Blood (06/17/2024 2:39 AM EST) [facility] Lactate, Whole Blood 1.3 0.5 - 2.2 mmol/L 06/17/2024 2:46 AM EST [facility] Blood VENOUS BLOOD SPECIMEN / Unknown Venipuncture / Unknown 06/17/2024 2:39 AM EST 06/17/2024 2:43 AM EST Bobby Loja MD CHEMISTRY ORDERABLES [facility] [place] [address] * (ABNORMAL) Hemogram (06/17/2024 2:39 AM EST) [facility] White Blood Cell 13.53(H) 4.00 - 9.50 x10(3)/mc L 06/17/2024 2:53 AM EST [facility] Red Blood Cell 3.55(L) 4.58 - 5.54 x10(6)/mc L 06/17/2024 2:53 AM EST [facility] Hemoglobin 10.8(L) 13.7 - 16.5 g/dL 06/17/2024 2:53 AM EST [facility] Hematocrit 33.0(L) 40.5 - 48.5 [...] EST Bobby Loja MD HEMATOLOGY ORDERABLE S [facility] [place] [address] * (ABNORMAL) Basic Metabolic Panel (06/17/2024 2:39 [...] AM EST Bobby Loja MD CHEMISTRY ORDERABLES [facility] [place] [address] * (ABNORMAL) POC, GLUCOSE (06/17/2024 12:13 AM EST) Glucometer, POC 211(H) 65 - 199 mg/dL 06/17/2024 12:13 AM EST [facility] Comment:Supplemental ranges: <140 mg/dL before meals <180 mg/dL all other times of the day. Blood CAPILLARY BLOOD / Unknown 06/17/2024 12:13 AM EST 06/17/2024 12:14 AM EST Bobby Loja MD POINT OF CARE TEST O NIKA Performing Organization Address City/[facility] Co de Phone Number [facility] [place] [address] * (ABNORMAL) POC, GLUCOSE (06/16/2024 7:22 PM EST) Glucometer, POC 229(H) 65 - 199 mg/dL 06/16/2024 7:22 PM EST [facility] Comment:Supplemental ranges: <140 mg/dL before meals <180 mg/dL all other times of the day. Blood CAPILLARY BLOOD / Unknown 06/16/2024 7:22 PM EST 06/16/2024 7:22 PM EST Bobby Loja MD POINT OF CARE TEST O NIKA [facility] [place] [address] * (ABNORMAL) POC, GLUCOSE (06/16/2024 6:14 PM EST) Glucometer, POC 220(H) 65 - 199 mg/dL 06/16/2024 6:14 PM EST [facility] Comment:Supplemental ranges: <140 mg/dL before meals <180 mg/dL all other times of the day. Blood CAPILLARY BLOOD / Unknown 06/16/2024 6:14 PM EST 06/16/2024 6:14 PM EST Bobby Loja MD POINT OF CARE TEST O RDBECKIE Performing Organization Address [facility] Co de Phone Number [facility] [place] [address] * Lactate, Whole Blood (06/16/2024 6:14 PM EST) Lactate, Whole Blood 1.8 0.5 - 2.2 mmol/L 06/16/2024 6:27 PM EST [facility] Blood VENOUS BLOOD SPECIMEN / Unknown Venipuncture / Unknown 06/16/2024 6:14 PM EST 06/16/2024 6:25 PM EST Bobby Loja MD CHEMISTRY ORDERABLES Performing Organization Address [facility] Phone Number [facility] [place] [address] * (ABNORMAL) POC, GLUCOSE (06/16/2024 4:14 PM EST) Glucometer, POC 240(H) 65 - 199 mg/dL 06/16/2024 4:14 PM EST [facility] Comment:Supplemental ranges: <140 mg/dL before meals <180 mg/dL all other times of the day. Blood CAPILLARY BLOOD / Unknown 06/16/2024 4:14 PM EST 06/16/2024 4:14 PM EST Bobby Loja MD POINT OF CARE TEST O NIKA Performing Organization Address [facility] Co de Phone Number [facility] [place] [address] * POC, GLUCOSE (06/16/2024 11:49 AM EST) Glucometer, POC 199 65 - 199 mg/dL 06/16/2024 11:49 AM EST [facility] Comment:Supplemental ranges: <140 mg/dL before meals <180 mg/dL all other times of the day. Blood CAPILLARY BLOOD / Unknown 06/16/2024 11:49 AM EST 06/16/2024 11:49 AM EST Bobby Loja MD POINT OF CARE TEST O RDERABLES [facility] [place] [address] * (ABNORMAL) Hemogram (06/16/2024 11:44 AM EST) White Blood Cell 17.91(H) 4.00 - 9.50 x10(3)/mc L 06/16/2024 12:25 PM EST [facility] Red Blood Cell 3.47(L) 4.58 [...] - 13.8 % 06/16/2024 12:25 PM EST [facility] NRBC% auto 0.0 % 06/16/2024 12:25 PM EST [facility] NRBC Absolute <0.01 <0.01 x10(3)/mc L 06/16/2024 12:25 PM EST [facility] Blood VENOUS BLOOD SPECIMEN / Unknown Venipuncture / Unknown 06/16/2024 11:44 AM EST 06/16/2024 12:03 PM EST Bobby Loja MD HEMATOLOGY ORDERABLE S Performing Organization Address [facility]/ZIP Co de Phone Number [facility] [place] [address] * Lactate, Whole Blood (06/16/2024 9:02 AM EST) Lactate, Whole Blood 1.8 0.5 - 2.2 mmol/L 06/16/2024 9:19 AM EST [facility] Blood VENOUS BLOOD SPECIMEN / Unknown Venipuncture / Unknown 06/16/2024 9:02 AM EST 06/16/2024 9:17 AM EST Bobby Loja MD CHEMISTRY ORDERABLES Performing Organization Address [facility] Co de Phone Number [facility] [place] [address] * POC, GLUCOSE (06/16/2024 7:44 AM EST) Glucometer, POC 129 65 - 199 mg/dL 06/16/2024 7:44 AM EST [facility] Comment:Supplemental ranges: <140 mg/dL before meals <180 mg/dL all other times of the day. Blood CAPILLARY BLOOD / Unknown 06/16/2024 7:44 AM EST 06/16/2024 7:44 AM EST Bobby Loja MD POINT OF CARE TEST O RDERABLES [facility] [place] [address] * POC, GLUCOSE (06/16/2024 4:01 AM EST) Glucometer, POC 158 65 - 199 mg/dL 06/16/2024 4:01 AM EST [facility] Comment:Supplemental ranges: <140 mg/dL before meals <180 mg/dL all other times of the day. Blood CAPILLARY BLOOD / Unknown 06/16/2024 4:01 AM EST 06/16/2024 4:01 AM EST Bobby Loja MD POINT OF CARE TEST O RDERAPIETER [facility] [place] [address] * (ABNORMAL) Basic Metabolic Panel (06/16/2024 2:23 [...] - 10.5 mg/dL 06/16/2024 3:13 AM EST [facility] Est Glomerular Filtration Rate - Male 34 mL/min/1. 73 m?? 06/16/2024 3:13 AM EST [facility] Comment: This patient's estimated GFR [...] Loja MD CHEMISTRY ORDERABLES Performing Organization Address City/[facility]/ZIP Co de Phone Number [facility] [place] [address] * POC, GLUCOSE (06/16/2024 2:21 AM EST) Glucometer, POC 176 65 - 199 mg/dL 06/16/2024 2:31 AM EST [facility] Comment:Supplemental ranges: <140 mg/dL before meals <180 mg/dL all other times of the day. Blood CAPILLARY BLOOD / Unknown 06/16/2024 2:21 AM EST 06/16/2024 2:31 AM EST Bobby Loja MD POINT OF CARE TEST O RDERABLES Performing Organization Address City/[facility]/ZIP Co de Phone Number [facility] [place] [address] * (ABNORMAL) POC, GLUCOSE (06/16/2024 12:09 AM EST) Glucometer, POC 222(H) 65 - 199 mg/dL 06/16/2024 12:09 AM EST [facility] Comment:Supplemental ranges: <140 mg/dL before meals <180 mg/dL all other times of the day. Blood CAPILLARY BLOOD / Unknown 06/16/2024 12:09 AM EST 06/16/2024 12:09 AM EST Bobby Loja MD POINT OF CARE TEST O NIKA Performing Organization Address [facility] Co de Phone Number [facility] [place] [address] * (ABNORMAL) POC, GLUCOSE (06/15/2024 10:07 PM EST) Glucometer, POC 320(H) 65 - 199 mg/dL 06/15/2024 10:07 PM EST [facility] Comment:Supplemental ranges: <140 mg/dL before meals <180 mg/dL all other times of the day. Blood CAPILLARY BLOOD / Unknown 06/15/2024 10:07 PM EST 06/15/2024 10:07 PM EST Bobby Loja MD POINT OF CARE TEST O NIKA Performing Organization Address [facility] Co de Phone Number [facility] [place] [address] * (ABNORMAL) POC, GLUCOSE (06/15/2024 7:56 PM EST) Glucometer, POC 304(H) 65 - 199 mg/dL 06/15/2024 7:56 PM EST [facility] Comment:Supplemental ranges: <140 mg/dL before meals <180 mg/dL all other times of the day. Blood CAPILLARY BLOOD / Unknown 06/15/2024 7:56 PM EST 06/15/2024 7:56 PM EST Bobby Loja MD POINT OF CARE TEST Abimael MAHER Performing Organization Address City/[facility] Co de Phone Number [facility] [place] [address] * (ABNORMAL) POC, GLUCOSE (06/15/2024 7:52 PM EST) Glucometer, POC 288(H) 65 - 199 mg/dL 06/15/2024 7:52 PM EST [facility] Comment:Supplemental ranges: <140 mg/dL before meals <180 mg/dL all other times of the day. Blood CAPILLARY BLOOD / Unknown 06/15/2024 7:52 PM EST 06/15/2024 7:52 PM EST Bobby Loja MD POINT OF CARE TEST O NIKA Performing Organization Address City/[facility]/ZIP Co de Phone Number [facility] [place] [address] * POC, GLUCOSE (06/15/2024 4:21 PM EST) Glucometer, POC 192 65 - 199 mg/dL 06/15/2024 4:21 PM EST [facility] Comment:Supplemental ranges: <140 mg/dL before meals <180 mg/dL all other times of the day. Blood CAPILLARY BLOOD / Unknown 06/15/2024 4:21 PM EST 06/15/2024 4:21 PM EST Bobby Loja MD POINT OF CARE TEST O NIKA [facility] [place] [address] * POC, GLUCOSE (06/15/2024 3:27 PM EST) Glucometer, POC 155 65 - 199 mg/dL 06/15/2024 3:27 PM EST [facility] Comment:Supplemental ranges: <140 mg/dL before meals <180 mg/dL all other times of the day. Blood CAPILLARY BLOOD / Unknown 06/15/2024 3:27 PM EST 06/15/2024 3:27 PM EST Bobby Loja MD POINT OF CARE TEST O NIKA Performing Organization Address [facility] Co de Phone Number [facility] [place] [address] * POC, GLUCOSE (06/15/2024 2:23 PM EST) Glucometer, POC 160 65 - 199 mg/dL 06/15/2024 2:23 PM EST [facility] Comment:Supplemental ranges: <140 mg/dL before meals <180 mg/dL all other times of the day. Blood CAPILLARY BLOOD / Unknown 06/15/2024 2:23 PM EST 06/15/2024 2:23 PM EST Bobby Loja MD POINT OF CARE TEST O NIKA Performing Organization Address [facility] Co de Phone Number [facility] [place] [address] * POC, GLUCOSE (06/15/2024 1:26 PM EST) Glucometer, POC 167 65 - 199 mg/dL 06/15/2024 1:26 PM EST [facility] Comment:Supplemental ranges: <140 mg/dL before meals <180 mg/dL all other times of the day. Blood CAPILLARY BLOOD / Unknown 06/15/2024 1:26 PM EST 06/15/2024 1:26 PM EST Bobby Loja MD POINT OF CARE TEST O NIKA Performing Organization Address City/[facility] Co de Phone Number [facility] [place] [address] * (ABNORMAL) POC, GLUCOSE (06/15/2024 12:55 PM EST) Glucometer, POC 210(H) 65 - 199 mg/dL 06/15/2024 12:55 PM EST [facility] Comment:Supplemental ranges: <140 mg/dL before meals <180 mg/dL all other times of the day. Blood CAPILLARY BLOOD / Unknown 06/15/2024 12:55 PM EST 06/15/2024 12:55 PM EST Bobby Loja MD POINT OF CARE TEST Abimael MAHER Performing Organization Address City/[facility]/ZIP Co de Phone Number [facility] [place] [address] * (ABNORMAL) POC, GLUCOSE (06/15/2024 11:29 AM EST) Glucometer, POC 220(H) 65 - 199 mg/dL 06/15/2024 11:29 AM EST [facility] Comment:Supplemental ranges: <140 mg/dL before meals <180 mg/dL all other times of the day. Blood CAPILLARY BLOOD / Unknown 06/15/2024 11:29 AM EST 06/15/2024 11:29 AM EST Bobby Loja MD POINT OF CARE TEST Abimael MAHER Performing Organization Address City/[facility] Co de Phone Number [facility] [place] [address] * (ABNORMAL) Basic Metabolic Panel (06/15/2024 11:23 AM EST) Glucose 215(H) 65 - 199 mg/dL 06/15/2024 12:08 PM EST [facility] Comment:Glucose Concentratio n >=200 mg/dL plus symptoms is consistent with Diabetes Mellitus. Blood Urea Nitrogen 24(H) 10 - 20 mg/dL 06/15/2024 12:08 PM [facility] Creatinine 1.54(H) 0.80 - 1.50 mg/dL 06/15/2024 12:08 PM EST [facility] Sodium 135 135 - 145 mMol/L 06/15/2024 12:08 PM [facility] Potassium 4.5 3.5 - 5.0 mMol/L 06/15/2024 12:08 PM [facility] Chloride 105 98 - 107 mMol/L 06/15/2024 12:08 PM [facility] Carbon Dioxide 19(L) 22 - 31 mMol/L 06/15/2024 12:08 PM EST [facility] Anion Gap 11 5 - 15 mMol/L 06/15/2024 12:08 PM EST [facility] Calcium 8.3(L) 8.5 - 10.5 mg/dL 06/15/2024 12:08 PM EST [facility] Est Glomerular Filtration Rate - Male 49 mL/min/1. 73 m?? 06/15/2024 12:08 PM EST [facility] Comment: This patient's estimated GFR [...] Loja MD CHEMISTRY ORDERABLES Performing Organization Address City/[facility]/ZIP Co de Phone Number [facility] [place] [address] * POC, GLUCOSE (06/15/2024 10:29 AM EST) [facility] Signature Glucometer, POC 189 65 - 199 mg/dL 06/15/2024 10:29 AM EST [facility] Comment:Supplemental ranges: <140 mg/dL before meals <180 mg/dL all other times of the day. Blood CAPILLARY BLOOD / Unknown 06/15/2024 10:29 AM EST 06/15/2024 10:29 AM EST Bobby Loja MD POINT OF CARE TEST O RDERABLES [facility] [place] [address] * POC, GLUCOSE (06/15/2024 9:45 AM EST) Glucometer, POC 178 65 - 199 mg/dL 06/15/2024 9:45 AM [facility] Comment:Supplemental ranges: <140 mg/dL before meals <180 mg/dL all other times of the day. Blood CAPILLARY BLOOD / Unknown 06/15/2024 9:45 AM EST 06/15/2024 9:45 AM EST Bobby Loja MD POINT OF CARE TEST Abimael MAHER Performing Organization Address City/[facility]/ZIP Co de Phone Number [facility] [place] [address] * (ABNORMAL) Cooximetry, POC (06/15/2024 9:31 AM [...] CARE TEST O RDERABLES Performing Organization Address [facility]/ZIP Co de Phone Number [facility] [place] [address] * Cooximetry, POC (06/15/2024 9:22 AM EST) [...] CARE TEST O RDERABLES Performing Organization Address [facility] Co de Phone Number [facility] [place] [address] * (ABNORMAL) Blood Gas, Arterial POC (06/15/2024 [...] MD POINT OF CARE TEST O RDERABLES [facility] [place] [address] * (ABNORMAL) POC, GLUCOSE (06/15/2024 8:37 AM EST) Glucometer, POC 204(H) 65 - 199 mg/dL 06/15/2024 8:37 AM EST [facility] Comment:Supplemental ranges: <140 mg/dL before meals <180 mg/dL all other times of the day. Blood CAPILLARY BLOOD / Unknown 06/15/2024 8:37 AM EST 06/15/2024 8:37 AM EST Bobby Loja MD POINT OF CARE TEST O NIKA Performing Organization Address City/[facility]/ZIP Co de Phone Number [facility] [place] [address] * POC, GLUCOSE (06/15/2024 7:37 AM EST) Glucometer, POC 199 65 - 199 mg/dL 06/15/2024 7:37 AM EST [facility] Comment:Supplemental ranges: <140 mg/dL before meals <180 mg/dL all other times of the day. Blood CAPILLARY BLOOD / Unknown 06/15/2024 7:37 AM EST 06/15/2024 7:38 AM EST Bobby Loja MD POINT OF CARE TEST Abimael MAHER Performing Organization Address City/[facility]/ZIP Co de Phone Number [facility] [place] [address] * (ABNORMAL) POC, GLUCOSE (06/15/2024 7:01 AM EST) Glucometer, POC 203(H) 65 - 199 mg/dL 06/15/2024 7:01 AM EST [facility] Comment:Supplemental ranges: <140 mg/dL before meals <180 mg/dL all other times of the day. Blood CAPILLARY BLOOD / Unknown 06/15/2024 7:01 AM EST 06/15/2024 7:01 AM EST Bobby Loja MD POINT OF CARE TEST O RDERABLES [facility] [place] [address] * XR Chest One View (06/15/2024 6:31 AM EST) WORKSTATION ID [id number] RAD Anatomical Region Laterality Modality Chest N/A [...] who have questions please contact the health care advocate that requested your imaging first. ? Narrative [...] patients who have questions please contactthe health care advocate that requested your imaging first. Bobby Loja MD IMG DX ORDERABLES * POC, GLUCOSE (06/15/2024 6:02 AM EST) Glucometer, POC 179 65 - 199 mg/dL 06/15/2024 6:02 AM EST [facility] Comment:Supplemental ranges: <140 mg/dL before meals <180 mg/dL all other times of the day. Blood CAPILLARY BLOOD / Unknown 06/15/2024 6:02 AM EST 06/15/2024 6:02 AM EST Bobby Loja MD POINT OF CARE TEST O RDERABLES [facility] [place] [address] * POC, GLUCOSE (06/15/2024 5:06 AM EST) Glucometer, POC 160 65 - 199 mg/dL 06/15/2024 5:06 AM EST [facility] Comment:Supplemental ranges: <140 mg/dL before meals <180 mg/dL all other times of the day. Blood CAPILLARY BLOOD / Unknown 06/15/2024 5:06 AM EST 06/15/2024 5:06 AM EST Bobby Loja MD POINT OF CARE TEST O RDERABLES Performing Organization Address [facility] Co de Phone Number [facility] [place] [address] * POC, GLUCOSE (06/15/2024 4:05 AM EST) Glucometer, POC 160 65 - 199 mg/dL 06/15/2024 4:06 AM EST [facility] Comment:Supplemental ranges: <140 mg/dL before meals <180 mg/dL all other times of the day. Blood CAPILLARY BLOOD / Unknown 06/15/2024 4:05 AM EST 06/15/2024 4:06 AM EST Bobby Loja MD POINT OF CARE TEST O NIKA Performing Organization Address [facility] Co de Phone Number [facility] [place] [address] * POC, GLUCOSE (06/15/2024 3:07 AM EST) Glucometer, POC 151 65 - 199 mg/dL 06/15/2024 3:07 AM EST [facility] Comment:Supplemental ranges: <140 mg/dL before meals <180 mg/dL all other times of the day. Blood CAPILLARY BLOOD / Unknown 06/15/2024 3:07 AM EST 06/15/2024 3:07 AM EST Bobby Loja MD POINT OF CARE TEST O NIKA Performing Organization Address [facility] Co de Phone Number [facility] [place] [address] * (ABNORMAL) Basic Metabolic Panel (06/15/2024 1:48 AM EST) Glucose 140 65 - 199 mg/dL 06/15/2024 2:38 AM EST [facility] Comment:Glucose Concentratio n >=200 mg/dL [...] AM EST Bobby Loja MD CHEMISTRY ORDERABLES [facility] [place] [address] * (ABNORMAL) CBC (with Diff) (06/15/2024 1:48 [...] 3.20 x10(3)/mc L 06/15/2024 2:13 AM EST [facility] Monocyte % 11.4 % 06/15/2024 [...] 0.10 x10(3)/mc L 06/15/2024 2:13 AM EST [facility] Immature Gran % 0.5 % 2:13 AM [facility] Immature Gran Absolute 0.06(H) 0.00 - 0.04 x10(3)/mc L 06/15/2024 2:13 AM EST [facility] Blood VENOUS BLOOD SPECIMEN / Unknown Venipuncture / Unknown 06/15/2024 1:48 AM EST 06/15/2024 1:52 AM EST Bobby Loja MD HEMATOLOGY ORDERABLE S [facility] [place] [address] * (ABNORMAL) Troponin - Single (06/15/2024 1:48 AM EST) Troponin-T, High Sensitivity 667(H) <=22 ng/L 06/15/2024 2:22 AM EST [facility] Comment: This patient's troponin T [...] troponin value can be found in the [facility] Test Catalog Troponin - [email or web address] Reference: Fourth [place] Definition of Myocardial Infarction. Journal of the [place] [employer] 2018;72:0514-6420 Blood VENOUS BLOOD SPECIMEN / Unknown Venipuncture / Unknown 06/15/2024 1:48 AM EST 06/15/2024 1:52 AM EST Bobby Loja MD CHEMISTRY ORDERABLES [facility] [place] [address] * (ABNORMAL) Blood Gas, Arterial POC (06/15/2024 1:46 AM EST) pH, Arterial 7.33(L) 7.35 - 7.45 06/15/2024 1:47 AM EST [facility] PCO2, Arterial 40 35 - [...] - 1.33 mmol/L 06/15/2024 1:47 AM EST [facility] Glucose, Arterial 127 65 - 199 mg/dL 06/15/2024 1:47 AM EST [facility] Comment:Glucose Concentratio n >=200 mg/dL plus symptoms is consistent with Diabetes Mellitus. Blood ARTERIAL BLOOD / Unknown 06/15/2024 1:46 AM EST 06/15/2024 1:47 AM EST Bobby Loja MD POINT OF CARE TEST O RDERAPIETER Performing Organization Address [facility] Co de Phone Number [facility] [place] [address] * POC, GLUCOSE (06/15/2024 1:05 AM EST) Glucometer, POC 116 65 - 199 mg/dL 06/15/2024 1:05 AM EST [facility] Comment:Supplemental ranges: <140 mg/dL before meals <180 mg/dL all other times of the day. Blood CAPILLARY BLOOD / Unknown 06/15/2024 1:05 AM EST 06/15/2024 1:05 AM EST Bobby Loja MD POINT OF CARE TEST O RDERAPIETER Performing Organization Address [facility] Co de Phone Number [facility] [place] [address] * POC, GLUCOSE (06/15/2024 12:16 AM EST) Glucometer, POC 135 65 - 199 mg/dL 06/15/2024 12:16 AM EST [facility] Comment:Supplemental ranges: <140 mg/dL before meals <180 mg/dL all other times of the day. Blood CAPILLARY BLOOD / Unknown 06/15/2024 12:16 AM EST 06/15/2024 12:16 AM EST Bobby Loja MD POINT OF CARE TEST O RDERAPIETER [facility] [place] [address] * Potassium (06/14/2024 11:28 PM EST) Potassium 4.1 3.5 - 5.0 mMol/L 06/14/2024 11:54 PM EST [facility] Blood VENOUS BLOOD SPECIMEN / Unknown Venipuncture / Unknown 06/14/2024 11:28 PM EST 06/14/2024 11:34 PM EST Bobby Loja MD CHEMISTRY ORDERABLES Performing Organization Address [facility] Co de Phone Number [facility] [place] [address] * POC, GLUCOSE (06/14/2024 10:58 PM EST) Glucometer, POC 126 65 - 199 mg/dL 06/14/2024 10:59 PM EST [facility] Comment:Supplemental ranges: <140 mg/dL before meals <180 mg/dL all other times of the day. Blood CAPILLARY BLOOD / Unknown 06/14/2024 10:58 PM EST 06/14/2024 10:59 PM EST Narrative Authorizing Provider Result Saranya Loja MD POINT OF CARE TEST O RDERABLES Performing Organization Address [facility] Co de Phone Number [facility] [place] [address] * POC, GLUCOSE (06/14/2024 9:55 PM EST) Glucometer, POC 152 65 - 199 mg/dL 06/14/2024 9:56 PM EST [facility] Comment:Supplemental ranges: <140 mg/dL before meals <180 mg/dL all other times of the day. Blood CAPILLARY BLOOD / Unknown 06/14/2024 9:55 PM EST 06/14/2024 9:56 PM EST Narrative Authorizing Provider Result Saranya Loja MD POINT OF CARE TEST O RDERABLES Performing Organization Address City/State/[facility] Co de Phone Number [facility] [place] [address] * POC, GLUCOSE (06/14/2024 8:54 PM EST) Glucometer, POC 151 65 - 199 mg/dL 06/14/2024 8:54 PM EST [facility] Comment:Supplemental ranges: <140 mg/dL before meals <180 mg/dL all other times of the day. Blood CAPILLARY BLOOD / Unknown 06/14/2024 8:54 PM EST 06/14/2024 8:54 PM EST Bobby Loja MD POINT OF CARE TEST O NIKA Performing Organization Address [facility] Co de Phone Number [facility] [place] [address] * POC, GLUCOSE (06/14/2024 7:51 PM EST) Glucometer, POC 169 65 - 199 mg/dL 06/14/2024 7:52 PM EST [facility] Comment:Supplemental ranges: <140 mg/dL before meals <180 mg/dL all other times of the day. Blood CAPILLARY BLOOD / Unknown 06/14/2024 7:51 PM EST 06/14/2024 7:52 PM EST Bobby Loja MD POINT OF CARE TEST O RDBECKIE Performing Organization Address City/[facility] Co de Phone Number [facility] [place] [address] * POC, GLUCOSE (06/14/2024 6:49 PM EST) Glucometer, POC 194 65 - 199 mg/dL 06/14/2024 6:50 PM EST [facility] Comment:Supplemental ranges: <140 mg/dL before meals <180 mg/dL all other times of the day. Blood CAPILLARY BLOOD / Unknown 06/14/2024 6:49 PM EST 06/14/2024 6:50 PM EST Bobby Loja MD POINT OF CARE TEST O RDERABLES Performing Organization Address City/[facility]/ZIP Co de Phone Number [facility] [place] [address] * (ABNORMAL) Hemoglobin (06/14/2024 6:19 PM EST) Hemoglobin 13.1(L) 13.7 - 16.5 g/dL 06/14/2024 7:08 PM EST [facility] Blood VENOUS BLOOD SPECIMEN / Unknown Venipuncture / Unknown 06/14/2024 6:19 PM EST 06/14/2024 6:28 PM EST Bobby Loja MD HEMATOLOGY ORDERABLE S Performing Organization Address [facility] Co de Phone Number [facility] [place] [address] * Potassium (06/14/2024 6:19 PM EST) Potassium 3.9 3.5 - 5.0 mMol/L 06/14/2024 6:52 PM EST [facility] Blood VENOUS BLOOD SPECIMEN / Unknown Venipuncture / Unknown 06/14/2024 6:19 PM EST 06/14/2024 6:28 PM EST Bobby Loja MD CHEMISTRY ORDERABLES Performing Organization Address City/[facility]/ZIP Co de Phone Number [facility] [place] [address] * (ABNORMAL) POC, GLUCOSE (06/14/2024 6:03 PM EST) Glucometer, POC 201(H) 65 - 199 mg/dL 06/14/2024 6:03 PM EST [facility] Comment:Supplemental ranges: <140 mg/dL before meals <180 mg/dL all other times of the day. Blood CAPILLARY BLOOD / Unknown 06/14/2024 6:03 PM EST 06/14/2024 6:03 PM EST Bobby Loja MD POINT OF CARE TEST O RDERABLES [facility] [place] [address] * (ABNORMAL) Blood Gas, Arterial POC (06/14/2024 4:51 PM EST) pH, Arterial 7.32(L) 7.35 - 7.45 06/14/2024 4:52 PM EST [facility] PCO2, Arterial 46(H) 35 - [...] 0.0 <=1.5 % 06/14/2024 4:52 PM EST [facility] Sodium, Arterial 138 135 - 145 mmol/L 06/14/2024 4:52 PM [facility] Potassium, Arterial 4.1 3.5 - 5.0 mmol/L 06/14/2024 4:52 PM [facility] Chloride, Arterial 106 98 - 107 mmol/L 06/14/2024 4:52 PM EST [facility] Lactate, Arterial 1.3 0.5 - [...] MD POINT [place] [address] * POC, GLUCOSE (06/14/2024 4:00 PM EST) Glucometer, POC 184 65 - 199 mg/dL 06/14/2024 4:01 PM EST [facility] Comment:Supplemental ranges: <140 mg/dL before meals <180 mg/dL all other times of the day. Blood CAPILLARY BLOOD / Unknown 06/14/2024 4:00 PM EST 06/14/2024 4:01 PM EST Bobby Loja MD POINT OF CARE TEST O RALPHERAPIETER [facility] [place] [address] * XR Chest One View (06/14/2024 3:05 PM EST) WORKSTATION ID [id number] RAD Anatomical Region Laterality Modality Chest N/A [...] who have questions please contact the health care advocate that requested your imaging first. ? Narrative [...] patients who have questions please contactthe health care advocate that requested your imaging first. Bobby Loja [...] MD POINT OF CARE TEST O RDERABLES [facility] [place] [address] * EKG 12 Lead (06/14/2024 2:46 PM EST) Ventricular rate 80 BPM MUSE SYSTEM Atrial Rate 80 BPM MUSE SYSTEM P-R Interval 120 ms MUSE SYSTEM QRS Duration 108 ms MUSE SYSTEM Q-T Interval 454 ms MUSE SYSTEM QTC Calculated (Bezet) 523 ms MUSE SYSTEM Calculated P [place] 70 degrees MUSE SYSTEM Calculated R [place] 56 degrees MUSE SYSTEM Calculated T [place] 50 degrees MUSE SYSTEM INTERPRETATION AV [...] [facility] Unit Number [id number] [facility] Product Code [id number] [facility]ANK [...] [facility] Unit Number [id number] [facility] Product Code [id number] [facility] BL [facility]OD BANK [...] [facility] [place] [address] * (ABNORMAL) Cooximetry, POC (06/14/2024 1:52 PM EST) pO2, Coox 58 mmHg 06/14/2024 1:55 PM EST [facility] Hemoglobin, Coox 12.6(L) 13.7 - 16.5 g/dL 06/14/2024 1:55 PM EST [facility] Oxyhemoglobin, Coox 85.5 % 06/14/2024 1:55 PM EST [facility] Carboxyhemoglo bin, Coox 0.3 % 06/14/2024 1:55 PM EST [facility] Comment: Nonsmokers: 0.5-1.5% COHB ?? Smokers: Variable ??but usually less than 10% ?? Toxic: 20-30% COHB ?? Lethal: Greater than 60% COHB Methemoglobin, Coox 0.6 <=1.5 % 06/14/2024 1:55 PM EST [facility] Blood (Mixed Venous) 06/14/2024 1:52 PM EST 06/14/2024 1:55 PM EST Haja Byrnes MD POINT OF CARE TEST O RDERABLES [facility] [place] [address] * (ABNORMAL) Blood Gas, Arterial POC (06/14/2024 12:47 PM EST) pH, Arterial 7.33(L) 7.35 - 7.45 06/14/2024 12:48 PM EST [facility] PCO2, Arterial 46(H) 35 - [...] Arterial 0.5 <=1.5 % 06/14/2024 12:48 PM [facility] Sodium, [...] CARE TEST O RDERABLES Performing Organization Address City/[facility]/ZIP Co de Phone Number [facility] [place] [address] * (ABNORMAL) Cooximetry, POC (06/14/2024 12:42 PM EST) pO2, Coox 71 mmHg 06/14/2024 12:45 PM EST [facility] Hemoglobin, Coox 11.6(L) 13.7 - 16.5 g/dL 06/14/2024 12:45 PM EST [facility] Oxyhemoglobin, Coox 91.5 % 06/14/2024 12:45 PM EST [facility] Carboxyhemoglo bin, Coox 0.3 % 06/14/2024 12:45 PM EST [facility] Comment: Nonsmokers: 0.5-1.5% COHB ?? Smokers: Variable ??but usually less than 10% ?? Toxic: 20-30% COHB ?? Lethal: Greater than 60% COHB Methemoglobin, Coox 0.4 <=1.5 % 06/14/2024 12:45 PM EST [facility] Blood (Mixed Venous) 06/14/2024 12:42 PM EST 06/14/2024 12:45 PM EST Haja Byrnes MD POINT OF CARE TEST O RDERABLES Performing Organization Address City/[facility]/ZIP Co de Phone Number [facility] [place] [address] * (ABNORMAL) Platelet count (06/14/2024 12:30 PM EST) Platelet 73(L) 145 - 357 x10(3)/mcL 06/14/2024 12:54 PM EST [facility] Blood ARTERIAL BLOOD / Unknown 06/14/2024 12:30 PM EST Comment:Pre-op diagnosis: CAD Bobby Loja MD HEMATOLOGY ORDERABLE S Performing Organization Address [facility]/State/ZIP Co de Phone Number [facility] [place] [address] * (ABNORMAL) Hemoglobin and Hematocrit, blood (06/14/2024 12:30 PM EST) Hemoglobin 10.9(L) 13.7 - 16.5 g/dL 06/14/2024 12:54 PM EST [facility] Hematocrit 33.5(L) 40.5 - 48.5 % 06/14/2024 12:54 PM EST [facility] Comment:This result has been called to Danielle López by Satya Page on 06/14/2024 12:53:56, and has been read back. Blood ARTERIAL BLOOD / Unknown 06/14/2024 12:30 PM EST 06/14/2024 12:42 PM EST Comment:Pre-op diagnosis: CAD Bobby Loja MD HEMATOLOGY ORDERABLE S Performing Organization Address [facility] Co de Phone Number [facility] [place] [address] * APTT (06/14/2024 12:30 PM EST) Partial Thromboplastin Time 31 25 - 37 sec 06/14/2024 12:57 PM EST [facility] Comment: The PTT is NOT appropriate for heparin monitoring. Use the Anti-Xa level for heparin monitoring (HEP UFH) or LMWH monitoring (HEP LMW). A PTT less than 37 seconds generally indicates adequate hemostasis. Blood ARTERIAL BLOOD / Unknown 06/14/2024 12:30 PM EST 06/14/2024 12:42 PM EST Comment:Pre-op diagnosis: CAD Bobby Loja MD HEMATOLOGY ORDERABLE S [facility] [place] [address] * (ABNORMAL) Prothrombin Time (06/14/2024 12:30 PM EST) Pathologist [facility] Prothrombin Time 16.8(H) 9.4 - 12.5 sec 06/14/2024 12:57 PM EST [facility] International Normalization Ratio 1.5 <=4.9 06/14/2024 12:57 PM EST [facility] Comment: An INR < 2.0 [...] MD HEMATOLOGY ORDERABLE S Performing Organization Address [facility] Co de Phone Number [facility] [place] [address] * Fibrinogen (06/14/2024 12:30 PM EST) [facility] Fibrinogen 211 200 - 393 mg/dL 06/14/2024 12:57 PM EST [facility] Comment: A fibrinogen level >100 mg/dL is adequate for hemostasis in most patients without underlying bleeding disorders. Blood ARTERIAL BLOOD / Unknown 06/14/2024 12:30 PM EST 06/14/2024 12:42 PM EST Comment:Pre-op diagnosis: CAD Bobby Loja MD HEMATOLOGY ORDERABLE S [facility] [place] [address] * (ABNORMAL) Blood Gas, Arterial POC (06/14/2024 [...] - 199 mg/dL 06/14/2024 12:16 PM EST [facility] Comment:Glucose Concentratio n >=200 mg/dL plus symptoms is consistent with Diabetes Mellitus. Blood ARTERIAL BLOOD / Unknown 06/14/2024 12:15 PM EST 06/14/2024 12:16 PM EST Haja Byrnes MD POINT OF CARE TEST O RDERABLES [facility] [place] [address] * (ABNORMAL) Blood Gas, Arterial POC (06/14/2024 [...] MD POINT OF CARE TEST O RDERABLES [facility] [place] [address] * (ABNORMAL) Blood Gas, Arterial POC (06/14/2024 [...] MD POINT OF CARE TEST O RDERABLES [facility] [place] [address] * (ABNORMAL) Scan, Peripheral Blood (06/14/2024 11:23 AM EST) RBC Morphology Abnormal 06/14/2024 11:59 AM EST [facility] Platelet Estimate Decreased(A) Normal 06/14/2024 11:59 AM EST [facility] Aretha cells 1-5 /HPF 06/14/2024 11:59 AM EST [facility] Blood ARTERIAL BLOOD / Unknown 06/14/2024 11:23 AM EST 06/14/2024 11:27 AM EST Bobby Loja MD HEMATOLOGY ORDERABLE S Performing Organization Address [facility]/ZIP Co de Phone Number [facility] [place] [address] * (ABNORMAL) Platelet count (06/14/2024 11:23 AM EST) Platelet 86(L) 145 - 357 x10(3)/mcL 06/14/2024 11:59 AM EST [facility] Blood ARTERIAL BLOOD / Unknown 06/14/2024 11:23 AM EST Comment:Pre-op diagnosis: CAD Bobby Loja MD HEMATOLOGY ORDERABLE S [facility] [place] [address] * (ABNORMAL) Hemoglobin and Hematocrit, blood (06/14/2024 11:23 AM EST) Hemoglobin 9.8(L) 13.7 - 16.5 g/dL 06/14/2024 11:59 AM EST [facility] Comment:This result has been called to Danielle López by Satya Page on 06/14/2024 11:58:33. Hematocrit 30.5(L) 40.5 - 48.5 % 06/14/2024 11:59 AM EST [facility] Comment:This result has been called to Danielle López by Satya Page on 06/14/2024 11:58:40, and has been read back. Blood ARTERIAL BLOOD / Unknown 06/14/2024 11:23 AM EST 06/14/2024 11:27 AM EST Comment:Pre-op diagnosis: CAD Bobby Loja MD HEMATOLOGY ORDERABLE S [facility] [place] [address] * (ABNORMAL) Blood Gas, Arterial POC (06/14/2024 [...] MD POINT OF CARE TEST O RDERABLES [facility] [place] [address] * (ABNORMAL) Blood Gas, Arterial POC (06/14/2024 10:26 AM EST) pH, Arterial 7.29(LLL) 7.35 - 7.45 06/14/2024 10:27 AM EST [facility] PCO2, Arterial 43 35 - [...] MD POINT OF CARE TEST O RDERABLES [facility] [place] [address] * (ABNORMAL) Blood Gas, Arterial POC (06/14/2024 [...] - 2.2 mmol/L 06/14/2024 10:26 AM EST [facility] IONIZED CALCIUM, ARTERIAL 0.91(LLL) 1.15 - 1.33 mmol/L 06/14/2024 10:26 AM EST [facility] Glucose, Arterial 148 65 - 199 mg/dL 06/14/2024 10:26 AM EST [facility] Comment:Glucose Concentratio n >=200 mg/dL plus symptoms is consistent with Diabetes Mellitus. Blood ARTERIAL BLOOD / Unknown 06/14/2024 10:25 AM EST 06/14/2024 10:26 AM EST Haja Byrnes MD POINT OF CARE TEST O RDERABLES [facility] [place] [address] * Surgical Pathology (06/14/2024 9:53 AM EST) Case Report Surgical Pathology Report ? Case: [id number] ? Authorizing Provider: ??Bobby Loja MD ? Collected: ? 06/14/2024 0953 ? Ordering Location: ? Main Operating Room Kristen ?? Received: ?06/14/2024 1413 ? [facility] ? Hospital ? Pathologist: ? Sandra [...] Inking: External surface inked black Sections/Process ing: Content Production Specialist sections in 4 cassettes labeled A1-A4. cmk B. Heart, Atrial Appendage, Left, . B - Labeled/Fixative : Heart, atrial appendage, left, fresh. Quantity/Size: Single, 3.3 x 1.5 x 0.8 cm. Tissue Description: Portion of heart tissue consisting of rodriguez-white, semitranslucent, smooth endocardium with rodriguez-brown muscular myocardium and thin translucent epicardium with adherent adipose tissue. No areas of discoloration identified. Sections/Process ing: Content Production Specialist sections in 1 cassette labeled B1. cmk 06/18/2024 10:18 AM EST [facility] Result Note Routine 06/18/2024 10:18 AM [facility] Tissue SOFT TISSUE MASS / Unknown 06/14/2024 9:53 AM EST 06/14/2024 2:13 PM EST Comment:Mediastinal mass Tissue specimen (specimen) LEFT ATRIAL APPENDAGE ABSENT / Unknown 06/14/2024 10:54 AM EST 06/14/2024 2:13 PM EST Comment:MARIALUISA Bobby Loja MD PATHOLOGY/CYTOLOGY O RDERABLES [facility] [place] [address] * Cooximetry, POC (06/14/2024 9:00 AM EST) pO2, Coox 57 mmHg 06/14/2024 9:04 AM EST [facility] PO2 Corrected, COOX 50 mmHg 06/14/2024 9:04 AM EST [facility] Hemoglobin, Coox 14.3 13.7 - 16.5 g/dL 06/14/2024 9:04 AM EST [facility] Oxyhemoglobin, Coox 86.2 % 06/14/2024 9:04 AM EST [facility] Carboxyhemoglobi n, Coox 0.3 % [...] MD POINT OF CARE TEST O RDERABLES [facility] [place] [address] * (ABNORMAL) Blood Gas, Arterial POC (06/14/2024 [...] MD POINT OF CARE TEST O RDERABLES [facility] [place] [place] [address] * Transesophageal Echo/OR (06/14/2024 7:20 AM EST) Anatomical Region Laterality Modality Cardiac Other 06/14/2024 7:20 AM EST Narrative 06/14/2024 4:36 PM EST Version: 2 Study ID: [id number] [address] [place] [address] ?OR Transesophageal Echo Report Name: GEORGE MEHTA [...] 30-35% with improved function of the anterior offana in particular. The RIJ is guided by KAREN. The aortic cannula and cross clamp site are guided by Epi-aortic ultrasound. 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 THere is no MARIALUISA thrombus and good velocity therein. This surgeon was made aware of this mass after consultation with other bone cooking operator experts and the decision was made [...] MD - 11/11/2024 Version: 2 Study ID: [id number] [address] [place] [id number] ORTransesophageal Echo Report Name: GEORGE MEHTA Study [...] of this mass after consultation with other bone cooking operator experts and thedecision was made by [...] - 199 mg/dL 06/14/2024 7:12 AM EST [facility] Comment:Supplemental ranges: <140 mg/dL before meals <180 mg/dL all other times of the day. Blood CAPILLARY BLOOD / Unknown 06/14/2024 7:11 AM EST 06/14/2024 7:12 AM EST Haja Byrnes MD POINT OF CARE TEST O RDERABLES [facility] [place] [address] * POC, GLUCOSE (06/14/2024 4:30 AM EST) Glucometer, POC 85 65 - 199 mg/dL 06/14/2024 4:30 AM EST [facility] Comment:Supplemental ranges: <140 mg/dL before meals <180 mg/dL all other times of the day. Blood CAPILLARY BLOOD / Unknown 06/14/2024 4:30 AM EST 06/14/2024 4:30 AM EST Haja Byrnes MD POINT OF CARE TEST O RDERABLES Performing Organization Address [facility]/ZIP Co de Phone Number [facility] [place] [address] * (ABNORMAL) Heparin (unfractionated) Level (06/14/2024 12:12 AM EST) Pathologist [facility] UF Heparin 1.02(HHH) IU/mL 06/14/2024 12:46 AM EST [facility] Comment: Heparin (anti-Xa) levels should [...] MD HEMATOLOGY ORDERABLE S Performing Organization Address City/[facility]/ZIP Co de Phone Number [facility] [place] [address] * (ABNORMAL) CBC (with Diff) (06/14/2024 12:12 AM [facility]) [facility] Signature White Blood Cell 10.51(H) 4.00 - [...] EST Shahnaz Scanlon MD HEMATOLOGY ORDERABLE S [facility] [place] [address] * Magnesium (06/14/2024 12:12 AM EST) Magnesium 0.74 0.69 - 1.07 mMol/L 06/14/2024 12:57 AM EST [facility] Blood VENOUS BLOOD SPECIMEN / Unknown Venipuncture / Unknown 06/14/2024 12:12 AM EST 06/14/2024 12:29 AM EST Shahnaz Scanlon MD CHEMISTRY ORDERABLES [facility] [place] [address] * (ABNORMAL) Basic Metabolic Panel (06/14/2024 12:12 [...] Scanlon MD CHEMISTRY ORDERABLES Performing Organization Address [facility] Co de Phone Number [facility] [place] [address] * Scan Doc: Implantable Devices (06/14/2024 12:00 AM EST) Narrative 06/14/2024 12:00 AM EST Ordered by an unspecified provider. Scanning Provider MEDIA MGR SCAN EXT O RDR/RSLT * POC, GLUCOSE (06/13/2024 11:12 PM EST) Glucometer, POC 104 65 - 199 mg/dL 06/13/2024 11:13 PM EST [facility] Comment:Supplemental ranges: <140 mg/dL before meals <180 mg/dL all other times of the day. Blood CAPILLARY BLOOD / Unknown 06/13/2024 11:12 PM EST 06/13/2024 11:13 PM EST Haja Byrnes MD POINT OF CARE TEST O RDERABLES Performing Organization Address [facility]/ZIP Co de Phone Number [facility] [place] [address] * (ABNORMAL) POC, GLUCOSE (06/13/2024 8:03 PM EST) Glucometer, POC 206(H) 65 - 199 mg/dL 06/13/2024 8:03 PM EST [facility] Comment:Supplemental ranges: <140 mg/dL before meals <180 mg/dL all other times of the day. Blood CAPILLARY BLOOD / Unknown 06/13/2024 8:03 PM EST 06/13/2024 8:03 PM EST Haja Byrnes MD POINT OF CARE TEST O RDERABLES Performing Organization Address [facility] Co de Phone Number [facility] [place] [address] * Heparin (unfractionated) Level (06/13/2024 4:11 PM EST) UF Heparin 0.76 IU/mL 06/13/2024 4:24 PM EST [facility] Comment: Heparin (anti-Xa) levels should [...] MD HEMATOLOGY ORDERABLE S Performing Organization Address [facility] Co de Phone Number [facility] [place] [address] * ABORH RECHECK (06/13/2024 4:11 PM EST) Pathologist [facility] ABORH Recheck O POSITIVE 06/13/2024 4:50 PM EST [facility] Blood VENOUS BLOOD SPECIMEN / Unknown Venipuncture / Unknown 06/13/2024 4:11 PM EST 06/13/2024 4:19 PM EST Haja Byrnes MD BLOOD BANK LAB ORDER EUSEBIA [facility] [place] [address] * (ABNORMAL) POC, GLUCOSE (06/13/2024 4:09 PM EST) [facility] Glucometer, POC 216(H) 65 - 199 mg/dL 06/13/2024 4:10 PM EST [facility] Comment:Supplemental ranges: <140 mg/dL before meals <180 mg/dL all other times of the day. Blood CAPILLARY BLOOD / Unknown 06/13/2024 4:09 PM EST 06/13/2024 4:10 PM EST Haja Byrnes MD POINT OF CARE TEST O RDERABLES Performing Organization Address City/[facility]/ZIP Co de Phone Number [facility] [place] [address] * Type and screen ([facility]CG[place]RAFITA[place] (06/13/2024 11:53 AM EST) Pathologist [facility] [...] BLOOD BANK LABORATORY T&S only valid at [facility] 06/13/2024 1:16 PM EST [facility] Blood VENOUS BLOOD SPECIMEN / Unknown Venipuncture / Unknown 06/13/2024 11:53 AM EST 06/13/2024 11:56 AM EST Narrative [facility] - 06/13/2024 1:16 PM EST This Type and Screen result is only valid at the [facility] Haja Byrnes MD BLOOD BANK LAB ORDER EUSEBIA Performing Organization Address [facility] Co de Phone Number [facility] [place] [address] * POC, GLUCOSE (06/13/2024 11:50 AM EST) Glucometer, POC 178 65 - 199 mg/dL 06/13/2024 11:51 AM EST [facility] Comment:Supplemental ranges: <140 mg/dL before meals <180 mg/dL all other times of the day. Blood CAPILLARY BLOOD / Unknown 06/13/2024 11:50 AM EST 06/13/2024 11:51 AM EST Haja Byrnes MD POINT OF CARE TEST O RDERABLES Performing Organization Address [facility] Co de Phone Number [facility] [place] [address] * XR Chest One View (06/13/2024 10:35 AM EST) WORKSTATION ID [id number] [facility] Anatomical Region Laterality Modality Chest [...] who have questions please contact the health care advocate that requested your imaging first. ? Narrative [...] patients who have questions please contactthe health care advocate that requested your imaging first. Haja Santiago Fitz GARCIA IMG DX ORDERABLES * CARDIAC CATHETERIZATION (06/13/2024 9:02 AM EST) Anatomical Region Laterality Modality Other Narrative 06/15/2024 9:07 AM EST ?[facility] ? Cardiac Catheterization/Intervention Report ? Patient Name: Tyson, George L. ? Procedure Date: 06/13/2024 ? A #: [id number] ? Primary Physician: Nuha Shen I ? Case #: [id number] ? File Name: [id number] ? Catheterization Order Number: [id number] ? [facility] ? Final Report [place], [place] ? Patient Name: ? George L. Tyson ? ID#: ?[id number] ? : ?1955 ? Procedure Date: ? June 13, 2024 ?Case #: ? [id number] ? Room: ? 6 ? Case Physician: [...] ?was designated as ASA Class IV. The [facility] clinical frailty scale is 5: [...] procedure was Urgent. The indication for ?the sleep lab technician visit is ACS greater than [...] angiography, vascular ?ultrasound and IABP insertion in sleep lab technician. ? Nuha Shen M.D. ? Electronically Signed by: Nuha Shen M.D. ? Report Finalized: 06/15/2024 ??08:59 ? Procedure Note Nuha Shen MD - 06/15/2024 [facility] Cardiac Catheterization/Intervention Report Patient Name: George Mehta Procedure Date: 06/13/2024 A #: [id number] Primary Physician: Nuha Shen I Case #: [id number] File Name: [id number] Catheterization Order Number: [id number] [facility] FinalReport [place], [place] Patient Name: George Mehta ID#:[id number] :1955 Procedure Date: June 13, 2024 Case [...] was designated as ASA Class IV. The [facility] clinical frailty scale is5: Mildly Frail. 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 LV ejection fraction within 6 months is 25%. Electrocardiography: EKG was assessed by ECG. EKG was Abnormal. EKG showed other abnormality. Medications Prior to Procedure: Sacubitril and Valsartan, Aspirin, Beta Erki and Statin. Indications for Diagnostic Cath: The priority of the diagnostic procedure was Urgent. The indicationfor the sleep lab technician visit is ACS greater than [...] site angiography,vascular ultrasound and IABP insertion in sleep lab technician. Nuha Shen M.D. Electronically Signed by: Nuha Shen M.D. Report Finalized: 06/15/2024 08:59 Nuha Rojo MD CARDIAC CATH ORDERA BLES * Potassium (06/13/2024 7:48 AM EST) Potassium 4.5 3.5 - 5.0 mMol/L 06/13/2024 8:28 AM EST [facility] Blood VENOUS BLOOD SPECIMEN / Unknown Venipuncture / Unknown 06/13/2024 7:48 AM EST 06/13/2024 7:55 AM EST Shahnaz Scanlon MD CHEMISTRY ORDERABLES Performing Organization Address City/State/[facility] de Phone Number [facility] [place] [address] * POC, GLUCOSE (06/13/2024 7:41 AM EST) Glucometer, POC 126 65 - 199 mg/dL 06/13/2024 7:41 AM EST [facility] Comment:Supplemental ranges: <140 mg/dL before meals <180 mg/dL all other times of the day. Blood CAPILLARY BLOOD / Unknown 06/13/2024 7:41 AM EST 06/13/2024 7:41 AM EST Ethel Carrillo MD POINT OF CARE TEST O NIKA Performing Organization Address [facility] Phone Number [facility] [place] [address] * POC, GLUCOSE (06/13/2024 3:25 AM EST) [facility] Glucometer, POC 99 65 - 199 mg/dL 06/13/2024 3:25 AM EST [facility] Comment:Supplemental ranges: <140 mg/dL before meals <180 mg/dL all other times of the day. Blood CAPILLARY BLOOD / Unknown 06/13/2024 3:25 AM EST 06/13/2024 3:25 AM EST Ethel Carrillo MD POINT OF CARE TEST Abimael MAHER Performing Organization Address [facility] Phone Number [facility] [place] [address] * Heparin (unfractionated) Level (06/13/2024 2:26 AM EST) [facility] UF Heparin 0.60 IU/mL 06/13/2024 3:32 AM EST [facility] Comment: Heparin (anti-Xa) levels should [...] MD HEMATOLOGY ORDERABLE S Performing Organization Address City/State/[facility] Co de Phone Number [facility] [place] [phone] * (ABNORMAL) CBC (with Diff) (06/13/2024 2:26 AM EST) White Blood Cell 9.98(H) 4.00 - 9.50 x10(3)/mc L 06/13/2024 2:41 AM EST [facility] Red Blood Cell 5.11 4.58 - 5.54 x10(6)/mc L 06/13/2024 2:41 AM EST [facility] Hemoglobin 15.3 13.7 - 16.5 g/dL 06/13/2024 2:41 AM EST [facility] Hematocrit 47.1 40.5 - 48.5 % 06/13/2024 2:41 AM EST [facility] Mean Cell Volume 92.2 82.9 - 93.1 fL 06/13/2024 2:41 AM EST [facility] Mean Cell Hemoglobin 29.9 27.5 - 32.1 pg 06/13/2024 2:41 AM EST [facility] Mean Cell Hemoglobin Concentration 32.5 [...] % 0.9 % 06/13/2024 2:41 AM EST [facility] Baso Absolute 0.09 0.00 - 0.10 x10(3)/mc L 06/13/2024 2:41 AM EST [facility] Immature Gran % 0.5 % 2:41 AM EST [facility] Immature Gran Absolute 0.05(H) 0.00 - 0.04 x10(3)/mc L 06/13/2024 2:41 AM EST [facility] Blood VENOUS BLOOD SPECIMEN / Unknown Venipuncture / Unknown 06/13/2024 2:26 AM EST 06/13/2024 2:32 AM EST Shahnaz Scanlon MD HEMATOLOGY ORDERABLE S Performing Organization Address City/[facility]/ZIP Co de Phone Number [facility] [place] [address] * Magnesium (06/13/2024 2:26 AM EST) Magnesium 0.78 0.69 - 1.07 mMol/L 06/13/2024 2:58 AM [facility] Blood VENOUS BLOOD SPECIMEN / Unknown Venipuncture / Unknown 06/13/2024 2:26 AM EST 06/13/2024 2:31 AM EST Shahnaz Scanlon MD CHEMISTRY ORDERABLES [facility] [place] [address] * (ABNORMAL) Basic Metabolic Panel (06/13/2024 2:26 AM EST) Glucose 121 65 - 199 mg/dL 06/13/2024 2:58 AM [facility] Comment:Glucose Concentratio n >=200 mg/dL plus symptoms is consistent with Diabetes Mellitus. Blood Urea Nitrogen 21(H) 10 - 20 mg/dL 06/13/2024 2:58 AM EST [facility] Creatinine 1.07 0.80 - 1.50 mg/dL 06/13/2024 2:58 AM EST [facility] Sodium 136 135 - 145 [...] mL/min/1. 73 m?? 06/13/2024 2:58 AM EST [facility] Comment: This patient's estimated GFR [...] AM EST Shahnaz Scanlon MD CHEMISTRY ORDERABLES [facility] [place] [address] * POC, GLUCOSE (06/12/2024 11:53 PM EST) Glucometer, POC 141 65 - 199 mg/dL 06/12/2024 11:54 PM EST [facility] Comment:Supplemental ranges: <140 mg/dL before meals <180 mg/dL all other times of the day. Blood CAPILLARY BLOOD / Unknown 06/12/2024 11:53 PM EST 06/12/2024 11:54 PM EST Ethel Carrillo MD POINT OF CARE TEST O NIKA Performing Organization Address City/[facility] Co de Phone Number [facility] [place] [address] * POC, GLUCOSE (06/12/2024 7:32 PM EST) Glucometer, POC 158 65 - 199 mg/dL 06/12/2024 7:32 PM EST [facility] Comment:Supplemental ranges: <140 mg/dL before meals <180 mg/dL all other times of the day. Blood CAPILLARY BLOOD / Unknown 06/12/2024 7:32 PM EST 06/12/2024 7:32 PM EST Ethel Carrillo MD POINT OF CARE TEST O NIKA Performing Organization Address [facility] Co de Phone Number [facility] [place] [address] * POC, GLUCOSE (06/12/2024 3:41 PM EST) Glucometer, POC 113 65 - 199 mg/dL 06/12/2024 3:41 PM EST [facility] Comment:Supplemental ranges: <140 mg/dL before meals <180 mg/dL all other times of the day. Blood CAPILLARY BLOOD / Unknown 06/12/2024 3:41 PM EST 06/12/2024 3:41 PM EST Ethel Carrillo MD POINT OF CARE TEST O NIKA Performing Organization Address City/[facility]/ZIP Co de Phone Number [facility] [place] [address] * Potassium (06/12/2024 2:19 PM EST) Potassium 4.5 3.5 - 5.0 mMol/L 06/12/2024 2:45 PM EST [facility] Blood VENOUS BLOOD SPECIMEN / Unknown Venipuncture / Unknown 06/12/2024 2:19 PM EST 06/12/2024 2:23 PM EST Shahnaz Scanlon MD CHEMISTRY ORDERABLES [facility] [place] [address] * (ABNORMAL) POC, GLUCOSE (06/12/2024 11:21 AM EST) Glucometer, POC 207(H) 65 - 199 mg/dL 06/12/2024 11:21 AM EST [facility] Comment:Supplemental ranges: <140 mg/dL before meals <180 mg/dL all other times of the day. Blood CAPILLARY BLOOD / Unknown 06/12/2024 11:21 AM EST 06/12/2024 11:22 AM EST Ethel Carrillo MD POINT OF CARE TEST O NIKA [facility] [place] [address] * POC, GLUCOSE (06/12/2024 8:00 AM EST) Glucometer, POC 169 65 - 199 mg/dL 06/12/2024 8:01 AM EST [facility] Comment:Supplemental ranges: <140 mg/dL before meals <180 mg/dL all other times of the day. Blood CAPILLARY BLOOD / Unknown 06/12/2024 8:00 AM EST 06/12/2024 8:01 AM EST Ethel Carrillo MD POINT OF CARE TEST O NIKA [facility] [place] [address] * POC, GLUCOSE (06/12/2024 4:25 AM EST) Glucometer, POC 132 65 - 199 mg/dL 06/12/2024 4:26 AM EST [facility] Comment:Supplemental ranges: <140 mg/dL before meals <180 mg/dL all other times of the day. Blood CAPILLARY BLOOD / Unknown 06/12/2024 4:25 AM EST 06/12/2024 4:26 AM EST Ethel Carrillo MD POINT OF CARE TEST O RDERABLES Performing Organization Address [facility] Co de Phone Number [facility] [place] [address] * Heparin (unfractionated) Level (06/12/2024 3:03 AM EST) UF Heparin 0.55 IU/mL 06/12/2024 3:44 AM EST [facility] Comment: Heparin (anti-Xa) levels should [...] EST Shahnaz Scanlon MD HEMATOLOGY ORDERABLE S [facility] [place] [address] * (ABNORMAL) CBC (with Diff) (06/12/2024 3:03 [...] EST Shahnaz Scanlon MD HEMATOLOGY ORDERABLE S [facility] [place] [address] * Magnesium (06/12/2024 3:03 AM EST) Pathologist [facility] [place] Magnesium 0.79 0.69 - 1.07 mMol/L 06/12/2024 4:01 AM [facility] Blood VENOUS BLOOD SPECIMEN / Unknown Venipuncture / Unknown 06/12/2024 3:03 AM EST 06/12/2024 3:30 AM EST Shahnaz Scanlon MD CHEMISTRY ORDERABLES [facility] [place] [address] * (ABNORMAL) Basic Metabolic Panel (06/12/2024 3:03 [...] mL/min/1. 73 m?? 06/12/2024 4:01 AM EST [facility] Comment: This patient's estimated GFR [...] Scanlon MD CHEMISTRY ORDERABLES Performing Organization Address City/[facility]/ZIP Co de Phone Number [facility] [place] [address] * POC, GLUCOSE (06/11/2024 11:56 PM EST) Glucometer, POC 135 65 - 199 mg/dL 06/11/2024 11:56 PM EST [facility] Comment:Supplemental ranges: <140 mg/dL before meals <180 mg/dL all other times of the day. Blood CAPILLARY BLOOD / Unknown 06/11/2024 11:56 PM EST 06/11/2024 11:56 PM EST Ethel Carrillo MD POINT OF CARE TEST O RDERABLES Performing Organization Address City/[facility]/ZIP Co de Phone Number [facility] [place] [address] * (ABNORMAL) POC, GLUCOSE (06/11/2024 8:25 PM EST) Glucometer, POC 210(H) 65 - 199 mg/dL 06/11/2024 8:26 PM EST [facility] Comment:Supplemental ranges: <140 mg/dL before meals <180 mg/dL all other times of the day. Blood CAPILLARY BLOOD / Unknown 06/11/2024 8:25 PM EST 06/11/2024 8:26 PM EST Ethel Carrillo MD POINT OF CARE TEST O RDBECKIE Performing Organization Address [facility] Co de Phone Number [facility] [place] [address] * POC, GLUCOSE (06/11/2024 4:24 PM EST) Glucometer, POC 81 65 - 199 mg/dL 06/11/2024 4:24 PM EST [facility] Comment:Supplemental ranges: <140 mg/dL before meals <180 mg/dL all other times of the day. Blood CAPILLARY BLOOD / Unknown 06/11/2024 4:24 PM EST 06/11/2024 4:25 PM EST Ethel Carrillo MD POINT OF CARE TEST O NIKA Performing Organization Address [facility] Co de Phone Number [facility] [place] [address] * (ABNORMAL) POC, GLUCOSE (06/11/2024 11:08 AM EST) Glucometer, POC 233(H) 65 - 199 mg/dL 06/11/2024 11:08 AM EST [facility] Comment:Supplemental ranges: <140 mg/dL before meals <180 mg/dL all other times of the day. Blood CAPILLARY BLOOD / Unknown 06/11/2024 11:08 AM EST 06/11/2024 11:08 AM EST Ethel Carrillo MD POINT OF CARE TEST O NIKA Performing Organization Address City/[facility] Co de Phone Number [facility] [place] [address] * POC, GLUCOSE (06/11/2024 7:48 AM EST) Glucometer, POC 184 65 - 199 mg/dL 06/11/2024 7:49 AM EST [facility] Comment:Supplemental ranges: <140 mg/dL before meals <180 mg/dL all other times of the day. Blood CAPILLARY BLOOD / Unknown 06/11/2024 7:48 AM EST 06/11/2024 7:49 AM EST Melida Valdes MD POINT OF CARE TEST O RDERABLES Performing Organization Address [facility] de Phone Number [facility] [place] [address] * Heparin (unfractionated) Level (06/11/2024 5:31 AM EST) Pathologist [facility] [place] UF Heparin 0.55 IU/mL 06/11/2024 6:10 AM EST [facility] Comment: Heparin (anti-Xa) levels should [...] MD HEMATOLOGY ORDERABLE S Performing Organization Address [facility] Co de Phone Number [facility] [place] [address] * POC, GLUCOSE (06/11/2024 3:57 AM EST) [facility] Glucometer, POC 132 65 - 199 mg/dL 06/11/2024 3:58 AM [facility] Comment:Supplemental ranges: <140 mg/dL before meals <180 mg/dL all other times of the day. Blood CAPILLARY BLOOD / Unknown 06/11/2024 3:57 AM EST 06/11/2024 3:58 AM EST Melida Valdes MD POINT OF CARE TEST O RDERABLES [facility] [place] [address] * (ABNORMAL) CBC (with Diff) (06/11/2024 2:13 AM EST) [facility] White Blood Cell 9.91(H) 4.00 - [...] Gran % 0.5 % 2:26 AM EST [facility] Immature Gran Absolute 0.05(H) 0.00 - 0.04 x10(3)/mc L 06/11/2024 2:26 AM [facility] Blood VENOUS BLOOD SPECIMEN / Unknown Venipuncture / Unknown 06/11/2024 2:13 AM EST 06/11/2024 2:19 AM EST Shahnaz Scanlon MD HEMATOLOGY ORDERABLE S Performing Organization Address [facility]/ZIP Co de Phone Number [facility] [place] [address] * Magnesium (06/11/2024 2:13 AM EST) Magnesium 0.83 0.69 - 1.07 mMol/L 06/11/2024 2:51 AM [facility] Blood VENOUS BLOOD SPECIMEN / Unknown Venipuncture / Unknown 06/11/2024 2:13 AM EST 06/11/2024 2:19 AM EST Shahnaz Scanlon MD CHEMISTRY ORDERABLES Performing Organization Address City/[facility] Co de Phone Number [facility] [place] [address] * (ABNORMAL) Basic Metabolic Panel (06/11/2024 2:13 [...] AM EST Shahnaz Scanlon MD CHEMISTRY ORDERABLES [facility] [place] [address] * POC, GLUCOSE (06/11/2024 12:50 AM EST) [facility] Signature Glucometer, POC 144 65 - 199 mg/dL 06/11/2024 12:51 AM EST [facility] Comment:Supplemental ranges: <140 mg/dL before meals <180 mg/dL all other times of the day. Blood CAPILLARY BLOOD / Unknown 06/11/2024 12:50 AM EST 06/11/2024 12:51 AM EST Melida Valdes MD POINT OF CARE TEST O NIKA Performing Organization Address City/[facility] Co de Phone Number [facility] [place] [address] * (ABNORMAL) POC, GLUCOSE (06/10/2024 7:22 PM EST) Glucometer, POC 236(H) 65 - 199 mg/dL 06/10/2024 7:22 PM EST [facility] Comment:Supplemental ranges: <140 mg/dL before meals <180 mg/dL all other times of the day. Blood CAPILLARY BLOOD / Unknown 06/10/2024 7:22 PM EST 06/10/2024 7:22 PM EST Melida Valdes MD POINT OF CARE TEST O NIKA Performing Organization Address [facility] Co de Phone Number [facility] [place] [address] * (ABNORMAL) Blood Gas, Venous (06/10/2024 5:42 [...] PM EST Melida Valdes MD CHEMISTRY ORDERABLES [facility] [place] [address] * POC, GLUCOSE (06/10/2024 5:35 PM EST) [facility] Signature Glucometer, POC 123 65 - 199 mg/dL 06/10/2024 5:35 PM EST [facility] Comment:Supplemental ranges: <140 mg/dL before meals <180 mg/dL all other times of the day. Blood CAPILLARY BLOOD / Unknown 06/10/2024 5:35 PM EST 06/10/2024 5:35 PM EST Melida Valdes MD POINT OF CARE TEST O NIKA Performing Organization Address [facility] Co de Phone Number [facility] [place] [address] * (ABNORMAL) POC, GLUCOSE (06/10/2024 11:25 AM EST) Glucometer, POC 216(H) 65 - 199 mg/dL 06/10/2024 11:25 AM EST [facility] Comment:Supplemental ranges: <140 mg/dL before meals <180 mg/dL all other times of the day. Blood CAPILLARY BLOOD / Unknown 06/10/2024 11:25 AM EST 06/10/2024 11:25 AM EST Melida Valdes MD POINT OF CARE TEST O NIKA Performing Organization Address [facility] de Phone Number [facility] [place] [address] * (ABNORMAL) POC, GLUCOSE (06/10/2024 7:46 AM EST) Glucometer, POC 206(H) 65 - 199 mg/dL 06/10/2024 7:46 AM EST [facility] Comment:Supplemental ranges: <140 mg/dL before meals <180 mg/dL all other times of the day. Blood CAPILLARY BLOOD / Unknown 06/10/2024 7:46 AM EST 06/10/2024 7:46 AM EST Melida Valdes MD POINT OF CARE TEST O NIKA Performing Organization Address City/[facility] Co de Phone Number [facility] [place] [address] * POC, GLUCOSE (06/10/2024 4:23 AM EST) Pathologist [facility] [place] Glucometer, POC 154 65 - 199 mg/dL 06/10/2024 4:24 AM [facility] Comment:Supplemental ranges: <140 mg/dL before meals <180 mg/dL all other times of the day. Blood CAPILLARY BLOOD / Unknown 06/10/2024 4:23 AM EST 06/10/2024 4:24 AM EST Melida Valdes MD POINT OF CARE TEST O RDERABLES [facility] [place] [address] * (ABNORMAL) CBC (with Diff) (06/10/2024 1:55 AM EST) [facility] White Blood Cell 9.00 4.00 - [...] MD HEMATOLOGY ORDERABLE S Performing Organization Address [facility] Co de Phone Number [facility] [place] [address] * Magnesium (06/10/2024 1:55 AM EST) Magnesium 0.83 0.69 - 1.07 mMol/L 06/10/2024 2:37 AM [facility] Blood VENOUS BLOOD SPECIMEN / Unknown Venipuncture / Unknown 06/10/2024 1:55 AM EST 06/10/2024 2:05 AM EST Shahnaz Scanlon MD CHEMISTRY ORDERABLES Performing Organization Address [facility] Co de Phone Number [facility] [place] [address] * (ABNORMAL) Basic Metabolic Panel (06/10/2024 1:55 [...] - 5.0 mMol/L 06/10/2024 2:37 AM EST [facility] Chloride 100 98 - 107 [...] mL/min/1. 73 m?? 06/10/2024 2:37 AM EST [facility] Comment: This patient's estimated GFR [...] AM EST Shahnaz Scanlon MD CHEMISTRY ORDERABLES [facility] [place] [address] * Heparin (unfractionated) Level (06/10/2024 1:54 AM EST) UF Heparin 0.56 IU/mL 06/10/2024 2:41 AM EST [facility] Comment: Heparin (anti-Xa) levels should [...] MD HEMATOLOGY ORDERABLE S Performing Organization Address [facility] Co de Phone Number [facility] [place] [address] * POC, GLUCOSE (06/10/2024 12:05 AM EST) Glucometer, POC 125 65 - 199 mg/dL 06/10/2024 12:05 AM EST [facility] Comment:Supplemental ranges: <140 mg/dL before meals <180 mg/dL all other times of the day. Blood CAPILLARY BLOOD / Unknown 06/10/2024 12:05 AM EST 06/10/2024 12:05 AM EST Melida Valdes MD POINT OF CARE TEST O RDERABLES Performing Organization Address [facility] Co de Phone Number [facility] [place] [address] * POC, GLUCOSE (06/09/2024 8:36 PM EST) Glucometer, POC 197 65 - 199 mg/dL 06/09/2024 8:36 PM EST [facility] Comment:Supplemental ranges: <140 mg/dL before meals <180 mg/dL all other times of the day. Blood CAPILLARY BLOOD / Unknown 06/09/2024 8:36 PM EST 06/09/2024 8:36 PM EST Melida Valdes MD POINT OF CARE TEST O NIKA Performing Organization Address [facility] Co de Phone Number [facility] [place] [address] * POC, GLUCOSE (06/09/2024 5:27 PM EST) Glucometer, POC 174 65 - 199 mg/dL 06/09/2024 5:28 PM EST [facility] Comment:Supplemental ranges: <140 mg/dL before meals <180 mg/dL all other times of the day. Blood CAPILLARY BLOOD / Unknown 06/09/2024 5:27 PM EST 06/09/2024 5:28 PM EST Melida Valdes MD POINT OF CARE TEST O NIKA Performing Organization Address [facility] Phone Number [facility] [place] [address] * (ABNORMAL) POC, GLUCOSE (06/09/2024 11:52 AM EST) Glucometer, POC 211(H) 65 - 199 mg/dL 06/09/2024 11:52 AM EST [facility] Comment:Supplemental ranges: <140 mg/dL before meals <180 mg/dL all other times of the day. Blood CAPILLARY BLOOD / Unknown 06/09/2024 11:52 AM EST 06/09/2024 11:52 AM EST Melida Valdes MD POINT OF CARE TEST O NIKA Performing Organization Address [facility] Co de Phone Number [facility] [place] [address] * Potassium (06/09/2024 8:25 AM EST) Potassium 4.6 3.5 - 5.0 mMol/L 06/09/2024 10:09 AM EST [facility] Blood VENOUS BLOOD SPECIMEN / Unknown Venipuncture / Unknown 06/09/2024 8:25 AM EST 06/09/2024 8:42 AM EST Shahnaz Scanlon MD CHEMISTRY ORDERABLES Performing Organization Address [facility] Co de Phone Number [facility] [place] [address] * (ABNORMAL) POC, GLUCOSE (06/09/2024 8:10 AM EST) Glucometer, POC 209(H) 65 - 199 mg/dL 06/09/2024 8:10 AM EST [facility] Comment:Supplemental ranges: <140 mg/dL before meals <180 mg/dL all other times of the day. Blood CAPILLARY BLOOD / Unknown 06/09/2024 8:10 AM EST 06/09/2024 8:11 AM EST Melida Valdes MD POINT OF CARE TEST O NIKA Performing Organization Address [facility] Co de Phone Number [facility] [place] [address] * POC, GLUCOSE (06/09/2024 4:40 AM EST) Glucometer, POC 131 65 - 199 mg/dL 06/09/2024 4:40 AM EST [facility] Comment:Supplemental ranges: <140 mg/dL before meals <180 mg/dL all other times of the day. Blood CAPILLARY BLOOD / Unknown 06/09/2024 4:40 AM EST 06/09/2024 4:41 AM EST Melida Valdes MD POINT OF CARE TEST O NIKA Performing Organization Address [facility] Co de Phone Number [facility] [place] [address] * Heparin (unfractionated) Level (06/09/2024 2:12 AM EST) UF Heparin 0.55 IU/mL 06/09/2024 2:33 AM [facility] Comment: Heparin (anti-Xa) levels should [...] EST Shahnaz Scanlon MD HEMATOLOGY ORDERABLE S [facility] [place] [id number] * (ABNORMAL) CBC (with Diff) (06/09/2024 2:12 AM EST) White Blood Cell 9.80(H) 4.00 - 9.50 x10(3)/mc L 06/09/2024 2:44 AM EST [facility] Red Blood Cell 5.18 4.58 - 5.54 x10(6)/mc L 06/09/2024 2:44 AM [facility] Hemoglobin 15.5 13.7 - 16.5 g/dL 06/09/2024 2:44 AM [facility] Hematocrit 47.4 40.5 - 48.5 % 06/09/2024 2:44 AM [facility] Mean Cell Volume 91.5 82.9 - 93.1 fL 06/09/2024 2:44 AM EST [facility] Mean Cell Hemoglobin 29.9 27.5 [...] 0.40 x10(3)/mc L 06/09/2024 2:44 AM EST [facility] Basophil % 0.9 % 06/09/2024 2:44 AM EST [facility] Baso Absolute 0.09 0.00 - 0.10 x10(3)/mc L 06/09/2024 2:44 AM EST [facility] Immature Gran % 0.6 % 2:44 AM EST [facility] Immature Gran Absolute 0.06(H) 0.00 - 0.04 x10(3)/mc L 06/09/2024 2:44 AM EST [facility] Blood VENOUS BLOOD SPECIMEN / Unknown Venipuncture / Unknown 06/09/2024 2:12 AM EST 06/09/2024 2:21 AM EST Shahnaz Scanlon MD HEMATOLOGY ORDERABLE S [facility] [place] [address] * Magnesium (06/09/2024 2:12 AM EST) Magnesium 0.83 0.69 - 1.07 mMol/L 06/09/2024 2:52 AM EST [facility] Blood VENOUS BLOOD SPECIMEN / Unknown Venipuncture / Unknown 06/09/2024 2:12 AM EST 06/09/2024 2:22 AM EST Shahnaz Scanlon MD CHEMISTRY ORDERABLES [facility] [place] [address] * (ABNORMAL) Basic Metabolic Panel (06/09/2024 2:12 AM EST) Glucose 147 65 - 199 mg/dL 06/09/2024 2:52 AM EST [facility] Comment:Glucose Concentratio n >=200 mg/dL [...] AM EST Shahnaz Scanlon MD CHEMISTRY ORDERABLES [facility] [place] [address] * POC, GLUCOSE (06/09/2024 12:34 AM EST) Glucometer, POC 186 65 - 199 mg/dL 06/09/2024 12:34 AM EST [facility] Comment:Supplemental ranges: <140 mg/dL before meals <180 mg/dL all other times of the day. Blood CAPILLARY BLOOD / Unknown 06/09/2024 12:34 AM EST 06/09/2024 12:34 AM EST Melida Valdes MD POINT OF CARE TEST O NIKA Performing Organization Address City/[facility]/ZIP Co de Phone Number [facility] [place] [address] * POC, GLUCOSE (06/08/2024 8:27 PM EST) Glucometer, POC 176 65 - 199 mg/dL 06/08/2024 8:28 PM EST [facility] Comment:Supplemental ranges: <140 mg/dL before meals <180 mg/dL all other times of the day. Blood CAPILLARY BLOOD / Unknown 06/08/2024 8:27 PM EST 06/08/2024 8:28 PM EST Melida Valdes MD POINT OF CARE TEST O NIKA [facility] [place] [address] * POC, GLUCOSE (06/08/2024 4:16 PM EST) Glucometer, POC 159 65 - 199 mg/dL 06/08/2024 4:16 PM EST [facility] Comment:Supplemental ranges: <140 mg/dL before meals <180 mg/dL all other times of the day. Blood CAPILLARY BLOOD / Unknown 06/08/2024 4:16 PM EST 06/08/2024 4:16 PM EST Melida Valdes MD POINT OF CARE TEST O RDERABLES Performing Organization Address [facility] Co de Phone Number [facility] [place] [address] * (ABNORMAL) POC, GLUCOSE (06/08/2024 12:35 PM EST) Glucometer, POC 226(H) 65 - 199 mg/dL 06/08/2024 12:35 PM EST [facility] Comment:Supplemental ranges: <140 mg/dL before meals <180 mg/dL all other times of the day. Blood CAPILLARY BLOOD / Unknown 06/08/2024 12:35 PM EST 06/08/2024 12:35 PM EST Melida Valdes MD POINT OF CARE TEST O NIKA Performing Organization Address [facility] Co de Phone Number [facility] [place] [address] * POC, GLUCOSE (06/08/2024 8:10 AM EST) Glucometer, POC 190 65 - 199 mg/dL 06/08/2024 8:14 AM EST [facility] Comment:Supplemental ranges: <140 mg/dL before meals <180 mg/dL all other times of the day. Blood CAPILLARY BLOOD / Unknown 06/08/2024 8:10 AM EST 06/08/2024 8:14 AM EST Melida Valdes MD POINT OF CARE TEST O NIKA Performing Organization Address [facility] Co de Phone Number [facility] [place] [address] * POC, GLUCOSE (06/08/2024 4:09 AM EST) Glucometer, POC 151 65 - 199 mg/dL 06/08/2024 4:10 AM EST [facility] Comment:Supplemental ranges: <140 mg/dL before meals <180 mg/dL all other times of the day. Blood CAPILLARY BLOOD / Unknown 06/08/2024 4:09 AM EST 06/08/2024 4:10 AM EST Melida Valdes MD POINT OF CARE TEST O RDERABLES Performing Organization Address [facility] Co de Phone Number [facility] [place] [address] * Heparin (unfractionated) Level (06/08/2024 3:21 AM EST) UF Heparin 0.46 IU/mL 06/08/2024 3:41 AM EST [facility] Comment: Heparin (anti-Xa) levels should [...] MD HEMATOLOGY ORDERABLE S Performing Organization Address City/[facility]/ZIP Co de Phone Number [facility] [place] [address] * (ABNORMAL) CBC (with Diff) (06/08/2024 3:21 AM EST) White Blood Cell 9.92(H) 4.00 - 9.50 x10(3)/mc L 06/08/2024 3:34 AM EST [facility] Red Blood Cell 5.09 4.58 [...] MD HEMATOLOGY ORDERABLE S Performing Organization Address City/State/[facility] Co de Phone Number [facility] [place] [address] * Magnesium (06/08/2024 3:21 AM EST) Magnesium 0.84 0.69 - 1.07 mMol/L 06/08/2024 3:59 AM [facility] Blood VENOUS BLOOD SPECIMEN / Unknown Venipuncture / Unknown 06/08/2024 3:21 AM EST 06/08/2024 3:27 AM EST Shahnaz Scanlon MD CHEMISTRY ORDERABLES [facility] [place] [address] * (ABNORMAL) Basic Metabolic Panel (06/08/2024 3:21 [...] Scanlon MD CHEMISTRY ORDERABLES Performing Organization Address City/[facility]/ZIP Co de Phone Number [facility] [place] [address] * POC, GLUCOSE (06/07/2024 11:57 PM EST) Glucometer, POC 188 65 - 199 mg/dL 06/07/2024 11:57 PM EST [facility] Comment:Supplemental ranges: <140 mg/dL before meals <180 mg/dL all other times of the day. Blood CAPILLARY BLOOD / Unknown 06/07/2024 11:57 PM EST 06/07/2024 11:58 PM EST Melida Valdes MD POINT OF CARE TEST O RDERABLES Performing Organization Address [facility] Co de Phone Number [facility] [place] [address] * POC, GLUCOSE (06/07/2024 8:05 PM EST) Glucometer, POC 118 65 - 199 mg/dL 06/07/2024 8:06 PM EST [facility] Comment:Supplemental ranges: <140 mg/dL before meals <180 mg/dL all other times of the day. Blood CAPILLARY BLOOD / Unknown 06/07/2024 8:05 PM EST 06/07/2024 8:06 PM EST Melida Valdes MD POINT OF CARE TEST O RDERABLES Performing Organization Address City/[facility]/ZIP Co de Phone Number [facility] [place] [address] * Potassium (06/07/2024 5:22 PM EST) Potassium 4.6 3.5 - 5.0 mMol/L 06/07/2024 5:59 PM EST [facility] Blood VENOUS BLOOD SPECIMEN / Unknown Venipuncture / Unknown 06/07/2024 5:22 PM EST 06/07/2024 5:26 PM EST Shahnaz Scanlon MD CHEMISTRY ORDERABLES Performing Organization Address [facility] Co de Phone Number [facility] [place] [address] * POC, GLUCOSE (06/07/2024 4:31 PM EST) Pathologist [facility] [place] Glucometer, POC 174 65 - 199 mg/dL 06/07/2024 4:34 PM EST [facility] Comment:Supplemental ranges: <140 mg/dL before meals <180 mg/dL all other times of the day. Blood CAPILLARY BLOOD / Unknown 06/07/2024 4:31 PM EST 06/07/2024 4:34 PM EST Melida Valdes MD POINT OF CARE TEST O RDERABLES Performing Organization Address [facility] Co de Phone Number [facility] [place] [address] * MRI Cardiac Morphology Function wwo Contrast (06/07/2024 1:10 PM EST) WORKSTATION ID [id number] RAD Anatomical Region Laterality Modality Magnetic Resonan [...] - Mildly dilated left ventricle size with dyvlocvh-wl-zvoqpemz decreased LV systolic function. ??LV ejection fraction [...] who have questions please contact the health care advocate that requested your imaging first. ? Narrative [...] VENTRICLE: Mildly dilated left ventricle size with qlfyuigq-cs-tjacnguu decreased LV systolic function. ??LV ejection fraction [...] VENTRICLE: Mildly dilated left ventricle size with vuudosid-ob-vgrxtqxl decreasedLV systolic function. LV ejection fraction is [...] - Mildly dilated left ventricle size with mpczsdbf-sw-uqoltwxu decreasedLV systolic function. LV ejection fraction is [...] patients who have questions please contactthe health care advocate that requested your imaging first. Delroy Fofana MD IMG MRI ORDERABLES * (ABNORMAL) POC, GLUCOSE (06/07/2024 11:05 AM EST) Glucometer, POC 221(H) 65 - 199 mg/dL 06/07/2024 11:06 AM EST [facility] Comment:Supplemental ranges: <140 mg/dL before meals <180 mg/dL all other times of the day. Blood CAPILLARY BLOOD / Unknown 06/07/2024 11:05 AM EST 06/07/2024 11:06 AM EST Melida Valdes MD POINT OF CARE TEST O NIKA Performing Organization Address [facility]/ZIP Co de Phone Number [facility] [place] [address] * (ABNORMAL) POC, GLUCOSE (06/07/2024 11:03 AM EST) Glucometer, POC 250(H) 65 - 199 mg/dL 06/07/2024 11:04 AM EST [facility] Comment:Supplemental ranges: <140 mg/dL before meals <180 mg/dL all other times of the day. Blood CAPILLARY BLOOD / Unknown 06/07/2024 11:03 AM EST 06/07/2024 11:04 AM EST Melida Valdes MD POINT OF CARE TEST O NIKA Performing Organization Address City/[facility]/ZIP Co de Phone Number [facility] [place] [address] * Potassium (06/07/2024 9:44 AM EST) Pathologist [facility] [place] Potassium 4.7 3.5 - 5.0 mMol/L 06/07/2024 10:23 AM EST [facility] Blood VENOUS BLOOD SPECIMEN / Unknown Venipuncture / Unknown 06/07/2024 9:44 AM EST 06/07/2024 9:57 AM EST Shahnaz Scanlon MD CHEMISTRY ORDERABLES Performing Organization Address City/[facility]/ZIP Co de Phone Number [facility] [place] [address] * POC, GLUCOSE (06/07/2024 7:45 AM EST) [facility] Glucometer, POC 175 65 - 199 mg/dL 06/07/2024 7:45 AM EST [facility] Comment:Supplemental ranges: <140 mg/dL before meals <180 mg/dL all other times of the day. Blood CAPILLARY BLOOD / Unknown 06/07/2024 7:45 AM EST 06/07/2024 7:46 AM EST Melida Valdes MD POINT OF CARE TEST O RDERABLES Performing Organization Address [facility]/ZIP Co de Phone Number [facility] [place] [address] * XR Chest PA & Lateral (Generic) (06/07/2024 7:03 AM EST) Pathologist [facility] [place] WORKSTATION ID [id number] DH RAD Anatomical Region Laterality Modality Chest [...] who have questions please contact the health care advocate that requested your imaging first. ? Narrative [...] patients who have questions please contactthe health care advocate that requested your imaging first. Shahnaz Scanlon MD IMG DX ORDERABLES * POC, GLUCOSE (06/07/2024 4:25 AM EST) Glucometer, POC 127 65 - 199 mg/dL 06/07/2024 4:26 AM EST [facility] Comment:Supplemental ranges: <140 mg/dL before meals <180 mg/dL all other times of the day. Blood CAPILLARY BLOOD / Unknown 06/07/2024 4:25 AM EST 06/07/2024 4:26 AM EST Melida Valdes MD POINT OF CARE TEST O RDERABLES Performing Organization Address City/State/[facility] Co de Phone Number [facility] [place] [address] * Heparin (unfractionated) Level (06/07/2024 2:41 AM EST) UF Heparin 0.45 IU/mL 06/07/2024 3:03 AM EST [facility] Comment: Heparin (anti-Xa) levels should [...] EST Shahnaz Scanlon MD HEMATOLOGY ORDERABLE S [facility] [place] [address] * (ABNORMAL) CBC (with Diff) (06/07/2024 2:41 [...] EST Shahnaz Scanlon MD HEMATOLOGY ORDERABLE S [facility] [place] [address] * Magnesium (06/07/2024 2:41 AM EST) Magnesium 0.92 0.69 - 1.07 mMol/L 06/07/2024 3:25 AM [facility] Blood VENOUS BLOOD SPECIMEN / Unknown Venipuncture / Unknown 06/07/2024 2:41 AM EST 06/07/2024 2:51 AM EST Shahnaz Scanlon MD CHEMISTRY ORDERABLES [facility] [place] [address] * (ABNORMAL) Basic Metabolic Panel (06/07/2024 2:41 [...] mL/min/1. 73 m?? 06/07/2024 3:25 AM EST [facility] Comment: This patient's estimated GFR [...] Scanlon MD CHEMISTRY ORDERABLES Performing Organization Address City/[facility]/ZIP Co de Phone Number [facility] [place] [address] * POC, GLUCOSE (06/07/2024 12:08 AM EST) Glucometer, POC 182 65 - 199 mg/dL 06/07/2024 12:09 AM EST [facility] Comment:Supplemental ranges: <140 mg/dL before meals <180 mg/dL all other times of the day. Blood CAPILLARY BLOOD / Unknown 06/07/2024 12:08 AM EST 06/07/2024 12:09 AM EST Melida Valdes MD POINT OF CARE TEST O RDERABLES Performing Organization Address City/[facility]/ZIP Co de Phone Number [facility] [place] [address] * POC, GLUCOSE (06/06/2024 8:18 PM EST) Glucometer, POC 143 65 - 199 mg/dL 06/06/2024 8:19 PM EST [facility] Comment:Supplemental ranges: <140 mg/dL before meals <180 mg/dL all other times of the day. Blood CAPILLARY BLOOD / Unknown 06/06/2024 8:18 PM EST 06/06/2024 8:19 PM EST Melida Valdes MD POINT OF CARE TEST O RDERABLES Performing Organization Address City/[facility]/ZIP Co de Phone Number [facility] [place] [address] * POC, GLUCOSE (06/06/2024 3:39 PM EST) Glucometer, POC 147 65 - 199 mg/dL 06/06/2024 3:40 PM EST [facility] Comment:Supplemental ranges: <140 mg/dL before meals <180 mg/dL all other times of the day. Blood CAPILLARY BLOOD / Unknown 06/06/2024 3:39 PM EST 06/06/2024 3:40 PM EST Melida Valdes MD POINT OF CARE TEST O NIKA Performing Organization Address [facility] Co de Phone Number [facility] [place] [address] * Potassium (06/06/2024 2:37 PM EST) Potassium 4.3 3.5 - 5.0 mMol/L 06/06/2024 3:01 PM EST [facility] Blood VENOUS BLOOD SPECIMEN / Unknown Venipuncture / Unknown 06/06/2024 2:37 PM EST 06/06/2024 2:42 PM EST Shahnaz Scanlon MD CHEMISTRY ORDERABLES Performing Organization Address [facility] Co de Phone Number [facility] [place] [address] * (ABNORMAL) POC, GLUCOSE (06/06/2024 1:39 PM EST) Glucometer, POC 317(H) 65 - 199 mg/dL 06/06/2024 1:40 PM EST [facility] Comment:Supplemental ranges: <140 mg/dL before meals <180 mg/dL all other times of the day. Blood CAPILLARY BLOOD / Unknown 06/06/2024 1:39 PM EST 06/06/2024 1:41 PM EST Melida Valdes MD POINT OF CARE TEST O RDERABLES Performing Organization Address City/[facility]/ZIP Co de Phone Number [facility] [place] [address] * (ABNORMAL) POC, GLUCOSE (06/06/2024 11:34 AM EST) Glucometer, POC 264(H) 65 - 199 mg/dL 06/06/2024 11:35 AM EST [facility] Comment:Supplemental ranges: <140 mg/dL before meals <180 mg/dL all other times of the day. Blood CAPILLARY BLOOD / Unknown 06/06/2024 11:34 AM EST 06/06/2024 11:35 AM EST Melida Valdes MD POINT OF CARE TEST O RDERABLES Performing Organization Address City/[facility]/ZIP Co de Phone Number [facility] [place] [address] * Potassium (06/06/2024 10:17 AM EST) Potassium 4.3 3.5 - 5.0 mMol/L 06/06/2024 10:46 AM EST [facility] Blood VENOUS BLOOD SPECIMEN / Unknown Venipuncture / Unknown 06/06/2024 10:17 AM EST 06/06/2024 10:22 AM EST Shahnaz Scanlon MD CHEMISTRY ORDERABLES Performing Organization Address City/[facility]/ZIP Co de Phone Number [facility] [place] [address] * POC, GLUCOSE (06/06/2024 7:57 AM EST) Glucometer, POC 195 65 - 199 mg/dL 06/06/2024 8:03 AM EST [facility] Comment:Supplemental ranges: <140 mg/dL before meals <180 mg/dL all other times of the day. Blood CAPILLARY BLOOD / Unknown 06/06/2024 7:57 AM EST 06/06/2024 8:03 AM EST Melida Valdes MD POINT OF CARE TEST O NIKA Performing Organization Address [facility] Co de Phone Number [facility] [place] [address] * POC, GLUCOSE (06/06/2024 6:53 AM EST) Glucometer, POC 187 65 - 199 mg/dL 06/06/2024 6:53 AM EST [facility] Comment:Supplemental ranges: <140 mg/dL before meals <180 mg/dL all other times of the day. Blood CAPILLARY BLOOD / Unknown 06/06/2024 6:53 AM EST 06/06/2024 6:54 AM EST Melida Valdes MD POINT OF CARE TEST Abimael MAHER Performing Organization Address [facility] de Phone Number [facility] [place] [address] * (ABNORMAL) Hemoglobin A1c (06/06/2024 3:33 AM EST) Hemoglobin A1c 7.1(H) 4.3 - 5.6 % 06/06/2024 1:01 PM EST [facility] Comment: Per ADA guidelines, without [...] red blood cell turnover may not be bottling equipment sales representative of glycemic control. Reference Interval: 4.3 - 5.6% 5.7 - 6.4%: Consistent with prediabetes >=6.5%: Consistent with diagnosis of diabetes mellitus Estimated Average Glucose 157 mg/dL 06/06/2024 1:01 PM EST [facility] Blood VENOUS BLOOD SPECIMEN / Unknown Venipuncture / Unknown 06/06/2024 3:33 AM EST 06/06/2024 3:48 AM EST Alejandra Baumann APRN CHEMISTRY ORDERAB LES Performing Organization Address [facility] Co de Phone Number [facility] [place] [address] * Heparin (unfractionated) Level (06/06/2024 3:33 AM EST) UF Heparin 0.36 IU/mL 06/06/2024 3:59 AM EST [facility] Comment: Heparin (anti-Xa) levels should [...] MD HEMATOLOGY ORDERABLE S Performing Organization Address [facility] Co de Phone Number [facility] [place] [address] * (ABNORMAL) CBC (with Diff) (06/06/2024 3:33 AM [facility]) [facility] White Blood Cell 9.81(H) 4.00 - [...] EST Shahnaz Scanlon MD HEMATOLOGY ORDERABLE S [facility] [place] [address] * Magnesium (06/06/2024 3:33 AM EST) Magnesium 0.92 0.69 - 1.07 mMol/L 06/06/2024 4:17 AM [facility] Blood VENOUS BLOOD SPECIMEN / Unknown Venipuncture / Unknown 06/06/2024 3:33 AM EST 06/06/2024 3:47 AM EST Shahnaz Scanlon MD CHEMISTRY ORDERABLES [facility] [place] [address] * (ABNORMAL) Basic Metabolic Panel (06/06/2024 3:33 [...] Scanlon MD CHEMISTRY ORDERABLES Performing Organization Address [facility]/ZIP Co de Phone Number [facility] [place] [address] * (ABNORMAL) POC, GLUCOSE (06/05/2024 10:31 PM EDT) Glucometer, POC 238(H) 65 - 199 mg/dL 06/05/2024 10:31 PM EDT [facility] Comment:Supplemental ranges: <140 mg/dL before meals <180 mg/dL all other times of the day. Blood CAPILLARY BLOOD / Unknown 06/05/2024 10:31 PM EDT 06/05/2024 10:31 PM EDT Melida Valdes MD POINT OF CARE TEST O RDERABLES [facility] [place] [address] * (ABNORMAL) POC, GLUCOSE (06/05/2024 4:22 PM EDT) Glucometer, POC 205(H) 65 - 199 mg/dL 06/05/2024 4:22 PM EDT [facility] Comment:Supplemental ranges: <140 mg/dL before meals <180 mg/dL all other times of the day. Blood CAPILLARY BLOOD / Unknown 06/05/2024 4:22 PM EDT 06/05/2024 4:23 PM EDT Melida Valdes MD POINT OF CARE TEST O NIKA Performing Organization Address City/[facility]/ZIP Co de Phone Number [facility] [place] [address] * (ABNORMAL) POC, GLUCOSE (06/05/2024 11:34 AM EDT) Glucometer, POC 211(H) 65 - 199 mg/dL 06/05/2024 11:34 AM EDT [facility] Comment:Supplemental ranges: <140 mg/dL before meals <180 mg/dL all other times of the day. Blood CAPILLARY BLOOD / Unknown 06/05/2024 11:34 AM EDT 06/05/2024 11:34 AM EDT Melida Valdes MD POINT OF CARE TEST O NIKA Performing Organization Address City/[facility]/ZIP Co de Phone Number [facility] [place] [address] * Potassium (06/05/2024 9:04 AM EDT) Potassium 4.3 3.5 - 5.0 mMol/L 06/05/2024 9:50 AM EDT [facility] Blood VENOUS BLOOD SPECIMEN / Unknown Venipuncture / Unknown 06/05/2024 9:04 AM EDT 06/05/2024 9:21 AM EDT Shahnaz Scanlon MD CHEMISTRY ORDERABLES Performing Organization Address City/[facility]/ZIP Co de Phone Number [facility] [place] [address] * POC, GLUCOSE (06/05/2024 7:27 AM EDT) Glucometer, POC 166 65 - 199 mg/dL 06/05/2024 7:27 AM EDT [facility] Comment:Supplemental ranges: <140 mg/dL before meals <180 mg/dL all other times of the day. Blood CAPILLARY BLOOD / Unknown 06/05/2024 7:27 AM EDT 06/05/2024 7:27 AM EDT Melida Valdes MD POINT OF CARE TEST O RDERABLES Performing Organization Address [facility] Co de Phone Number [facility] [place] [address] * Heparin (unfractionated) Level (06/05/2024 3:44 AM EDT) UF Heparin 0.44 IU/mL 06/05/2024 4:07 AM EDT [facility] Comment: Heparin (anti-Xa) levels should [...] MD HEMATOLOGY ORDERABLE S Performing Organization Address [facility]/ZIP Co de Phone Number [facility] [place] [address] * (ABNORMAL) CBC (with Diff) (06/05/2024 3:44 AM EDT) White Blood Cell 10.83(H) 4.00 - 9.50 x10(3)/mc L 06/05/2024 3:[address] [facility] Red Blood Cell 5.07 4.58 - 5.54 x10(6)/mc L 06/05/2024 3:[address] [facility] Hemoglobin 15.3 13.7 - 16.5 g/dL 06/05/2024 3:[address] [facility] Hematocrit 46.8 40.5 - 48.5 % 06/05/2024 3:[address] [facility] Mean Cell Volume 92.3 82.9 - 93.1 fL 06/05/2024 3:[address] [facility] Mean Cell Hemoglobin 30.2 27.5 - 32.1 pg 06/05/2024 3:[address] [facility] Mean Cell Hemoglobin Concentration 32.7 32.0 - 35.7 g/dL 06/05/2024 3:[address] [facility] Platelet 219 145 - 357 x10(3)/mc L 06/05/2024 3:[address] [facility] Mean Platelet Volume 9.4 7.6 - 12.9 fL 06/05/2024 3:[address] [facility] RDW Standard Deviation 46.7(H) 36.0 - 45.0 fL 06/05/2024 3:[address] [facility] RDW coefficient of variation 13.9(H) 11.4 - 13.8 % 06/05/2024 3:[address] [facility] NRBC% auto 0.0 % 06/05/2024 3:[address] [facility] NRBC Absolute <0.01 <0.01 x10(3)/mc L 06/05/2024 3:[address] [facility] Neutrophil % 61.5 % 06/05/2024 3:[address] [facility] Neutrophil Absolute (ANC) - Automated 6.65(H) 1.70 - 6.10 x10(3)/mc L 06/05/2024 3:56 AM EDT [facility] Lymph % 24.0 % 06/05/2024 3:56 AM EDT [facility] Lymph Absolute 2.60 0.90 - 3.20 x10(3)/mc L 06/05/2024 3:56 AM EDT [facility] Monocyte % 10.9 % 06/05/2024 3:56 AM EDT [facility] Monocyte Absolute 1.18(H) 0.30 - 0.90 x10(3)/mc L 06/05/2024 3:56 AM EDT [facility] Eos % 2.2 % 06/05/2024 3:56 AM EDT [facility] Eos Absolute 0.24 0.00 - 0.40 x10(3)/mc L 06/05/2024 3:56 AM EDT [facility] Basophil % 0.8 % 06/05/2024 3:56 AM EDT [facility] Baso Absolute 0.09 0.00 - 0.10 x10(3)/mc L 06/05/2024 3:56 AM EDT [facility] Immature Gran % 0.6 % 3:56 AM EDT [facility] Immature Gran Absolute 0.07(H) 0.00 - 0.04 x10(3)/mc L 06/05/2024 3:56 AM EDT [facility] Blood VENOUS BLOOD SPECIMEN / Unknown Venipuncture / Unknown 06/05/2024 3:44 AM EDT 06/05/2024 3:50 AM EDT Shahnaz Scanlon MD HEMATOLOGY ORDERABLE S [facility] [place] [address] * Magnesium (06/05/2024 3:44 AM EDT) Magnesium 0.92 0.69 - 1.07 mMol/L 06/05/2024 4:20 AM T [facility] Blood VENOUS BLOOD SPECIMEN / Unknown Venipuncture / Unknown 06/05/2024 3:44 AM EDT 06/05/2024 3:50 AM EDT Shahnaz Scanlon MD CHEMISTRY ORDERABLES [facility] [place] [address] * (ABNORMAL) Basic Metabolic Panel (06/05/2024 3:44 AM EDT) Glucose 155 65 - 199 mg/dL 06/05/2024 4:20 AM T [facility] Comment:Glucose Concentratio n >=200 mg/dL plus symptoms is consistent with Diabetes Mellitus. Blood Urea Nitrogen 25(H) 10 - 20 mg/dL 06/05/2024 4:20 AM EDT [facility] Creatinine 1.16 0.80 - 1.50 mg/dL 06/05/2024 4:[address] [facility] Sodium 136 135 - 145 mMol/L 06/05/2024 4:[address] [facility] Potassium 3.9 3.5 - 5.0 mMol/L 06/05/2024 4:[address] [facility] Chloride 95(L) 98 - 107 mMol/L 06/05/2024 4:[address] [facility] Carbon Dioxide 29 22 - 31 mMol/L 06/05/2024 4:[address] [facility] Anion Gap 12 5 - 15 mMol/L 06/05/2024 4:[address] [facility] Calcium 9.2 8.5 - 10.5 mg/dL 06/05/2024 4:[address] [facility] Est Glomerular Filtration Rate - Male 69 mL/min/1. 73 m?? 06/05/2024 [facility]: This patient's estimated [...] Scanlon MD CHEMISTRY ORDERABLES Performing Organization Address City/[facility]/ZIP Co de Phone Number [facility] [place] [address] * Potassium (06/04/2024 10:34 PM EDT) Potassium 3.7 3.5 - 5.0 mMol/L 06/04/2024 11:03 PM EDT [facility] Blood VENOUS BLOOD SPECIMEN / Unknown Venipuncture / Unknown 06/04/2024 10:34 PM EDT 06/04/2024 10:39 PM EDT Shahnaz Scanlon MD CHEMISTRY ORDERABLES Performing Organization Address City/[facility]/ZIP Co de Phone Number [facility] [place] [address] * POC, GLUCOSE (06/04/2024 7:43 PM EDT) Glucometer, POC 175 65 - 199 mg/dL 06/04/2024 7:43 PM EDT [facility] Comment:Supplemental ranges: <140 mg/dL before meals <180 mg/dL all other times of the day. Blood CAPILLARY BLOOD / Unknown 06/04/2024 7:43 PM EDT 06/04/2024 7:43 PM EDT Melida Valdes MD POINT OF CARE TEST O RDERAPIETER Performing Organization Address [facility] Co de Phone Number [facility] [place] [address] * Potassium (06/04/2024 4:35 PM EDT) Potassium 4.0 3.5 - 5.0 mMol/L 06/04/2024 5:32 PM EDT [facility] Blood VENOUS BLOOD SPECIMEN / Unknown Venipuncture / Unknown 06/04/2024 4:35 PM EDT 06/04/2024 4:40 PM EDT Shahnaz Scanlon MD CHEMISTRY ORDERABLES Performing Organization Address [facility] Co de Phone Number [facility] [place] [address] * POC, GLUCOSE (06/04/2024 3:26 PM EDT) Glucometer, POC 154 65 - 199 mg/dL 06/04/2024 3:26 PM EDT [facility] Comment:Supplemental ranges: <140 mg/dL before meals <180 mg/dL all other times of the day. Blood CAPILLARY BLOOD / Unknown 06/04/2024 3:26 PM EDT 06/04/2024 3:27 PM EDT Melida Valdes MD POINT OF CARE TEST O NIKA Performing Organization Address [facility]/ZIP Co de Phone Number [facility] [place] [address] * POC, GLUCOSE (06/04/2024 11:09 AM EDT) Glucometer, POC 188 65 - 199 mg/dL 06/04/2024 11:09 AM EDT [facility] Comment:Supplemental ranges: <140 mg/dL before meals <180 mg/dL all other times of the day. Blood CAPILLARY BLOOD / Unknown 06/04/2024 11:09 AM EDT 06/04/2024 11:09 AM EDT Delroy Fofana MD POINT OF CARE TEST ORDERABLES Performing Organization Address [facility] Co de Phone Number [facility] [place] [address] * Heparin (unfractionated) Level (06/04/2024 10:41 AM EDT) UF Heparin 0.43 IU/mL 06/04/2024 11:06 AM EDT [facility] Comment: Heparin (anti-Xa) levels should [...] MD HEMATOLOGY ORDERABLE S Performing Organization Address City/[facility]/ZIP Co de Phone Number [facility] [place] [address] * Potassium (06/04/2024 10:41 AM EDT) Potassium 4.0 3.5 - 5.0 mMol/L 06/04/2024 11:11 AM EDT [facility] Blood VENOUS BLOOD SPECIMEN / Unknown Venipuncture / Unknown 06/04/2024 10:41 AM EDT 06/04/2024 10:46 AM EDT Shahnaz Scanlon MD CHEMISTRY ORDERABLES Performing Organization Address City/[facility]/ZIP Co de Phone Number [facility] [place] [address] * POC, GLUCOSE (06/04/2024 7:11 AM EDT) Glucometer, POC 182 65 - 199 mg/dL 06/04/2024 7:12 AM EDT [facility] Comment:Supplemental ranges: <140 mg/dL before meals <180 mg/dL all other times of the day. Blood CAPILLARY BLOOD / Unknown 06/04/2024 7:11 AM EDT 06/04/2024 7:12 AM EDT Delroy Fofana MD POINT OF CARE TEST ORDERABLES Performing Organization Address [facility] Co de Phone Number [facility] [place] [address] * Heparin (unfractionated) Level (06/04/2024 4:38 AM EDT) UF Heparin 0.41 IU/mL 06/04/2024 5:19 AM EDT [facility] Comment: Heparin (anti-Xa) levels should [...] EDT Shahnaz Scanlon MD HEMATOLOGY ORDERABLE S [facility] [place] [address] * (ABNORMAL) CBC (with Diff) (06/04/2024 4:38 AM EDT) White Blood Cell 11.45(H) 4.00 - 9.50 x10(3)/mc L 06/04/2024 5:12 AM EDT [facility] Red Blood Cell 5.35 4.58 - 5.54 x10(6)/mc L 06/04/2024 5:12 AM EDT [facility] Hemoglobin 16.0 13.7 - 16.5 g/dL 06/04/2024 5:12 AM EDT [facility] Hematocrit 49.6(H) 40.5 - 48.5 % 06/04/2024 5:12 AM EDT [facility] Mean Cell Volume 92.7 82.9 - 93.1 fL 06/04/2024 5:12 AM EDT [facility] Mean Cell Hemoglobin 29.9 27.5 - 32.1 pg 06/04/2024 5:12 AM EDT [facility] Mean Cell Hemoglobin Concentration 32.3 32.0 - 35.7 g/dL 06/04/2024 5:12 AM EDT [facility] Platelet 222 145 - 357 x10(3)/mc L 06/04/2024 5:12 AM EDT [facility] Mean Platelet Volume 9.5 7.6 - 12.9 fL 06/04/2024 5:12 AM EDT [facility] RDW Standard Deviation 47.6(H) 36.0 - 45.0 fL 06/04/2024 5:12 AM EDT [facility] RDW coefficient of variation 14.1(H) 11.4 - 13.8 % 06/04/2024 5:[address] [facility] NRBC% auto 0.0 % 06/04/2024 5:[address] [facility] NRBC Absolute <0.01 <0.01 x10(3)/mc L 06/04/2024 5:[address] [facility] Neutrophil % 60.3 % 06/04/2024 5:[address] [facility] Neutrophil Absolute (ANC) - Automated 6.91(H) 1.70 - 6.10 x10(3)/mc L 06/04/2024 5:[address] [facility] Lymph % 25.1 % 06/04/2024 5:[address] [facility] Lymph Absolute 2.87 0.90 - 3.20 x10(3)/mc L 06/04/2024 5:[address] [facility] Monocyte % 10.6 % 06/04/2024 5:[address] [facility] Monocyte Absolute 1.21(H) 0.30 - 0.90 x10(3)/mc L 06/04/2024 5:[address] [facility] Eos % 2.8 % 06/04/2024 5:[address] [facility] Eos Absolute 0.32 0.00 - 0.40 x10(3)/mc L 06/04/2024 5:[address] [facility] Basophil % 0.7 % 06/04/2024 5:[address] [facility] Baso Absolute 0.08 0.00 - 0.10 x10(3)/mc L 06/04/2024 5:[address] [facility] Immature Gran % 0.5 % 5:[address] [facility] Immature Gran Absolute 0.06(H) 0.00 - 0.04 x10(3)/mc L 06/04/2024 5:12 AM EDT [facility] Blood VENOUS BLOOD SPECIMEN / Unknown Venipuncture / Unknown 06/04/2024 4:38 AM EDT 06/04/2024 5:07 AM EDT Shahnaz Scanlon MD HEMATOLOGY ORDERABLE S [facility] [place] [address] * Magnesium (06/04/2024 4:38 AM EDT) Magnesium 0.84 0.69 - 1.07 mMol/L 06/04/2024 5:35 AM EDT [facility] Blood VENOUS BLOOD SPECIMEN / Unknown Venipuncture / Unknown 06/04/2024 4:38 AM EDT 06/04/2024 5:07 AM EDT Shahnaz Sacnlon MD CHEMISTRY ORDERABLES [facility] [place] [address] * (ABNORMAL) Basic Metabolic Panel (06/04/2024 4:38 AM EDT) Glucose 118 65 - 199 mg/dL 06/04/2024 5:35 AM EDT [facility] Comment:Glucose Concentratio n >=200 mg/dL plus symptoms is consistent with Diabetes Mellitus. Blood Urea Nitrogen 22(H) 10 - 20 mg/dL 06/04/2024 5:35 AM EDT [facility] Creatinine 1.22 0.80 - 1.50 mg/dL 06/04/2024 5:35 AM EDT [facility] Sodium 137 135 - 145 mMol/L 06/04/2024 5:35 AM EDT [facility] Potassium 3.6 3.5 - 5.0 mMol/L 06/04/2024 5:35 AM EDT [facility] Chloride 97(L) 98 - 107 mMol/L 06/04/2024 5:35 AM EDT [facility] Carbon Dioxide 29 22 - 31 mMol/L 06/04/2024 5:35 AM EDT [facility] Anion Gap 11 5 - 15 mMol/L 06/04/2024 5:35 AM EDT [facility] Calcium 9.0 8.5 - 10.5 mg/dL 06/04/2024 5:35 AM EDT [facility] Est Glomerular Filtration Rate - Male 65 mL/min/1. 73 m?? 06/04/2024 5:35 AM EDT [facility] Comment: This patient's estimated GFR [...] AM EDT Shahnaz Scanlon MD CHEMISTRY ORDERABLES [facility] [place] [address] * Heparin (unfractionated) Level (06/03/2024 8:58 PM EDT) UF Heparin 0.27 IU/mL 06/03/2024 9:33 PM EDT [facility] Comment: Heparin (anti-Xa) levels should [...] MD HEMATOLOGY ORDERABLE S Performing Organization Address [facility] Co de Phone Number [facility] [place] [address] * POC, GLUCOSE (06/03/2024 8:05 PM EDT) Glucometer, POC 136 65 - 199 mg/dL 06/03/2024 8:05 PM EDT [facility] Comment:Supplemental ranges: <140 mg/dL before meals <180 mg/dL all other times of the day. Blood CAPILLARY BLOOD / Unknown 06/03/2024 8:05 PM EDT 06/03/2024 8:05 PM EDT Delroy Fofana MD POINT OF CARE TEST ORDERABLES Performing Organization Address City/[facility]/ZIP Co de Phone Number [facility] [place] [address] * POC, GLUCOSE (06/03/2024 5:48 PM EDT) Glucometer, POC 191 65 - 199 mg/dL 06/03/2024 5:48 PM EDT [facility] Comment:Supplemental ranges: <140 mg/dL before meals <180 mg/dL all other times of the day. Blood CAPILLARY BLOOD / Unknown 06/03/2024 5:48 PM EDT 06/03/2024 5:49 PM EDT Delroy Fofana MD POINT OF CARE TEST ORDERABLES [facility] [place] [address] * CT Chest wo Contrast (Generic) (06/03/2024 4:33 PM EDT) WORKSTATION ID [id number] RAD Anatomical Region Laterality Modality Chest Computed Tomogra phy Impressions 06/03/2024 4:47 PM EDT Cardiomegaly. Biventricular ICD leads in place. Thank you for letting us participate in the care of this patient. ??If you are a health care provider and have any questions regarding this report, please contact the number below. ??For patients who have questions please contact the health care advocate that requested your imaging first. ? Narrative [...] patients who have questions please contactthe health care advocate that requested your imaging first. Bobby Loja MD IMG CT ORDERABLES * Carotid Duplex, Bilateral (06/03/2024 2:19 PM EDT) VB Text Report Department: Vascular Surgery Lab Patient: [id number] (GEORGE MEHTA) CPT: 84920 Referring Physician: BOBBY LOJA ?? Phone: Indications: [...] Heparin 0.15 IU/mL 06/03/2024 1:13 PM EDT [facility] Comment: Heparin (anti-Xa) levels should [...] EDT Shahnaz Scanlon MD HEMATOLOGY ORDERABLE S [facility] [place] [address] * POC, GLUCOSE (06/03/2024 11:14 AM EDT) Glucometer, POC 166 65 - 199 mg/dL 06/03/2024 11:14 AM EDT [facility] Comment:Supplemental ranges: <140 mg/dL before meals <180 mg/dL all other times of the day. Blood CAPILLARY BLOOD / Unknown 06/03/2024 11:14 AM EDT 06/03/2024 11:14 AM EDT Delroy Fofana MD POINT OF CARE TEST ORDERABLES Performing Organization Address City/[facility]/ZIP Co de Phone Number [facility] [place] [address] * (ABNORMAL) Troponin-T, High Sensitivity 3 Hour (06/03/2024 10:06 AM EDT) Troponin-T, High Sensitivity 266(H) <=22 ng/L 06/03/2024 10:50 AM EDT [facility] Comment: This patient's troponin T [...] troponin value can be found in the [facility] Test Catalog Troponin - https://one-.testcatalog.org/catalogs/565/files/06637 Reference: [place] Definition of Myocardial Infarction. Journal of the [employer] 2018;72:2970-3252 Troponin-T, HS 3 hr delta 06/03/2024 10:50 AM EDT [facility] Comment:Delta troponin value not calculated, sample collected outside of delta calculation time limit. Blood VENOUS BLOOD SPECIMEN / Unknown IP Care Team Draw / Unknown 06/03/2024 10:06 AM EDT 06/03/2024 10:15 AM EDT Delroy Fofana MD CHEMISTRY ORDERABLE S [facility] [place] [address] * ECHO COMPLETE W CONTRAST (06/03/2024 8:46 AM EDT) Anatomical Region Laterality Modality Cardiac Other 06/03/2024 6:52 AM EDT Narrative 06/03/2024 10:32 AM EDT [address] [place] [address] ? Echocardiogram Report Name: GEORGE MEHTA ?Study Date: 06/03/2024 06:52 AM : 1955 ? Height: 168 cm ? Account: [id number] Age: 69 yrs ? Weight: 102 kg Gender: Male ?BSA: 2.1 m2 Ordering Physician: SHAHNAZ SCANLON Referring Physician: NEHAL QUINTERO Performed By: Sara Kebede RDCS Reason For Study: STEMI Exam Location: [facility]. Interpretation Summary -Left ventricular systolic function is [...] fellow performed study of today's date). Procedure Complete-[id number]. Image enhancement Optison was used for left [...] Note Jonnie Jordan MD - 06/03/2024 [address] [place] [address] Echocardiogram Report Name: GEORGE MEHTA Study Date: 406:52 AM : 1955 Height: 168 cm Account: [id number] Age: 69 yrs Weight: 102 kg Gender: Male BSA: 2.1 m2 Ordering Physician: SHAHNAZ SCANLON Referring Physician: NEHAL QUINTERO Performed By: Sara Kebede RDCS Reason For Study: STEMI Exam Location: [facility]. Interpretation Summary -Left ventricular systolic function is [...] a fellow performed study of's date). Procedure Complete-[id number]. Image enhancement Optison was used for left [...] 289(H) <=22 ng/L 06/03/2024 9:26 AM EDT [facility] Comment: This patient's troponin T [...] troponin value can be found in the [facility] Test Catalog Troponin - https://one-dh.testcatalog.org/catalogs/565/files/00925 Reference: [employer] [place] Definition of Myocardial Infarction. Journal of the [employer] 2018;72:8652-4056 Troponin-T, HS 1 hr delta 5 ng/L 06/03/2024 9:26 AM EDT [facility] Comment:The 1 hour Troponin T delta value is the absolute difference between the Troponin T concentrations of the initial and subsequent sample collected between 45 - 120 minutes following the initial collection. Blood VENOUS BLOOD SPECIMEN / Unknown IP Care Team Draw / Unknown 06/03/2024 8:27 AM EDT 06/03/2024 8:37 AM EDT Delroy Fofana MD CHEMISTRY ORDERABLE S [facility] [place] [address] * POC, GLUCOSE (06/03/2024 7:54 AM EDT) Glucometer, POC 195 65 - 199 mg/dL 06/03/2024 7:55 AM EDT [facility] Comment:Supplemental ranges: <140 mg/dL before meals <180 mg/dL all other times of the day. Blood CAPILLARY BLOOD / Unknown 06/03/2024 7:54 AM EDT 06/03/2024 7:55 AM EDT Nuha Rojo MD POINT OF CARE TEST ORDERABLES Performing Organization Address City/[facility]/ZIP Co de Phone Number [facility] [place] [address] * (ABNORMAL) Troponin-T, High Sensitivity (06/03/2024 7:39 AM EDT) [facility] Troponin-T, High Sensitivity Initial 284(H) <=22 ng/L 06/03/2024 8:29 AM EDT [facility] Comment: This patient's troponin T [...] troponin value can be found in the [facility] Test Catalog Troponin - https://Lumatix.org/catalogs/565/files/56849 Reference: [place] Definition of Myocardial Infarction. Journal of the [employer] 2018;72:7389-1928 Blood VENOUS BLOOD SPECIMEN / Unknown IP Care Team Draw / Unknown 06/03/2024 7:39 AM EDT 06/03/2024 7:48 AM EDT Delroy Fofana MD CHEMISTRY ORDERABLE S [facility] [place] [address] * (ABNORMAL) Troponin-T, High Sensitivity 3 Hour (06/03/2024 5:11 AM EDT) Pathologist [facility] [place] Troponin-T, High Sensitivity 254(H) <=22 ng/L 06/03/2024 5:49 AM EDT [facility] Comment: This patient's troponin T [...] troponin value can be found in the [facility] Test Catalog Troponin - https://PureHistory/catalogs/565/files/22789 Reference: [place] Definition of Myocardial Infarction. Journal of the [employer] 2018;72:4147-1796 Troponin-T, HS 3 hr delta 46 ng/L 06/03/2024 5:49 AM EDT [facility] Comment:The 3 hour Troponin T delta value is the absolute difference between the Troponin T concentrations of the initial and subsequent sample collected between 2 h: 45 min and 6 h following the initial collection Blood VENOUS BLOOD SPECIMEN / Unknown IP Care Team Draw / Unknown 06/03/2024 5:11 AM EDT 06/03/2024 5:20 AM EDT Shahnaz Scanlon MD CHEMISTRY ORDERABLES [facility] [place] [address] * (ABNORMAL) Troponin-T, High Sensitivity 1 Hour (06/03/2024 3:07 AM EDT) Pathologist [facility] Troponin-T, High Sensitivity 218(H) <=22 ng/L 06/03/2024 3:39 AM EDT [facility] Comment: This patient's troponin T [...] troponin value can be found in the [facility] Test Catalog Troponin - https://one-dh.testcatalog.org/catalogs/565/files/31385 Reference: [place] Definition of Myocardial Infarction. Journal of the [employer] 2018;72:9695-8670 Troponin-T, HS 1 hr delta 10 ng/L 06/03/2024 3:39 AM EDT [facility] Comment:The 1 hour Troponin T delta value is the absolute difference between the Troponin T concentrations of the initial and subsequent sample collected between 45 - 120 minutes following the initial collection. Blood VENOUS BLOOD SPECIMEN / Unknown IP Care Team Draw / Unknown 06/03/2024 3:07 AM EDT 06/03/2024 3:12 AM EDT Shahnaz Scanlon MD CHEMISTRY ORDERABLES [facility] [place] [address] * XR Chest One View (06/03/2024 2:41 AM EDT) WORKSTATION ID [id number] RAD Anatomical Region Laterality Modality Chest N/A Digital Radiogra phy Impressions 06/03/2024 3:06 AM EDT No radiographically evident acute cardiopulmonary process. Thank you for letting us participate in the care of this patient. ??If you are a health care provider and have any questions regarding this report, please contact the number below. ??For patients who have questions please contact the health care advocate that requested your imaging first. ? Narrative [...] patients who have questions please contactthe health care advocate that requested your imaging first. Shahnaz Scanlon MD IMG DX ORDERABLES * Heparin (unfractionated) Level (06/03/2024 2:13 AM EDT) UF Heparin 0.56 IU/mL 06/03/2024 4:13 AM EDT [facility] Comment: Heparin (anti-Xa) levels should [...] EDT Shahnaz Scanlon MD HEMATOLOGY ORDERABLE S [facility] [place] [address] * (ABNORMAL) Troponin-T, High Sensitivity (06/03/2024 2:13 AM EDT) Troponin-T, High Sensitivity Initial 208(H) <=22 ng/L 06/03/2024 3:02 AM EDT [facility] Comment: This patient's troponin T [...] troponin value can be found in the [facility] Test Catalog Troponin - https://one-.testcatalog.org/catalogs/565/files/87632 Reference: [place] Definition of Myocardial Infarction. Journal of the [employer] 2018;72:6199-1321 Blood VENOUS BLOOD SPECIMEN / Unknown IP Care Team Draw / Unknown 06/03/2024 2:13 AM EDT 06/03/2024 2:32 AM EDT Shahnaz Scanlon MD CHEMISTRY ORDERABLES Performing Organization Address City/[facility]/ZIP Co de Phone Number [facility] [place] [address] * Magnesium (06/03/2024 2:13 AM EDT) Magnesium 0.86 0.69 - 1.07 mMol/L 06/03/2024 3:02 AM EDT [facility] Blood VENOUS BLOOD SPECIMEN / Unknown IP Care Team Draw / Unknown 06/03/2024 2:13 AM EDT 06/03/2024 2:32 AM EDT Shahnaz Scanlon MD CHEMISTRY ORDERABLES Performing Organization Address City/[facility]/ZIP Co de Phone Number [facility] [place] [address] * Basic Metabolic Panel (06/03/2024 2:13 AM EDT) Glucose 126 65 - 199 mg/dL 06/03/2024 3:02 AM EDT [facility] Comment:Glucose Concentratio n >=200 mg/dL plus symptoms is consistent with Diabetes Mellitus. Blood Urea Nitrogen 20 10 - 20 mg/dL 06/03/2024 3:02 AM EDT [facility] Creatinine 1.13 0.80 - 1.50 mg/dL 06/03/2024 3:02 AM EDT [facility] Sodium 139 135 - 145 mMol/L 06/03/2024 3:02 AM EDT [facility] Potassium 4.2 3.5 - 5.0 mMol/L 06/03/2024 3:02 AM EDT [facility] Chloride 101 98 - 107 mMol/L 06/03/2024 3:02 AM EDT [facility] Carbon Dioxide 26 22 - 31 mMol/L 06/03/2024 3:02 AM EDT [facility] Anion Gap 12 5 - 15 mMol/L 06/03/2024 3:02 AM EDT [facility] Calcium 9.8 8.5 - 10.5 mg/dL 06/03/2024 3:02 AM EDT [facility] Est Glomerular Filtration Rate - Male 71 mL/min/1. 73 m?? 06/03/2024 3:[address] [facility] Comment: This [...] AM EDT Shahnaz Scanlon MD CHEMISTRY ORDERABLES [facility] [place] [address] * (ABNORMAL) CBC (with Diff) (06/03/2024 2:13 AM EDT) White Blood Cell 11.16(H) 4.00 - 9.50 x10(3)/mc L 06/03/2024 2:37 AM EDT [facility] Red Blood Cell 5.09 4.58 - 5.54 x10(6)/mc L 06/03/2024 2:[address] [facility] Hemoglobin 15.0 13.7 - 16.5 g/dL 06/03/2024 2:[address] [facility] Hematocrit 47.4 40.5 - 48.5 % 06/03/2024 2:[address] [facility] Mean Cell Volume 93.1 82.9 - 93.1 fL 06/03/2024 2:[address] [facility] Mean Cell Hemoglobin 29.5 27.5 - 32.1 pg 06/03/2024 2:[address] [facility] Mean Cell Hemoglobin Concentration 31.6(L) 32.0 - 35.7 g/dL 06/03/2024 2:[address] [facility] Platelet 217 145 - 357 x10(3)/mc L 06/03/2024 2:[address] [facility] Mean Platelet Volume 9.5 7.6 - 12.9 fL 06/03/2024 2:[address] [facility] RDW Standard Deviation 49.0(H) 36.0 - 45.0 fL 06/03/2024 2:[address] [facility] RDW coefficient of variation 14.1(H) 11.4 - 13.8 % 06/03/2024 2:[address] [facility] NRBC% auto 0.0 % 06/03/2024 2:[address] [facility] NRBC Absolute <0.01 <0.01 x10(3)/mc L 06/03/2024 2:[address] [facility] Neutrophil % 58.4 % 06/03/2024 2:[address] [facility] Neutrophil Absolute (ANC) - Automated 6.51(H) 1.70 - 6.10 x10(3)/mc L 06/03/2024 2:[address] [facility] Lymph % 29.9 % 06/03/2024 2:[address] [facility] Lymph Absolute 3.34(H) 0.90 - 3.20 x10(3)/mc L 06/03/2024 2:37 AM EDT [facility] Monocyte % 8.1 % 06/03/2024 2:37 AM EDT [facility] Monocyte Absolute 0.90 0.30 - 0.90 x10(3)/mc L 06/03/2024 2:37 AM EDT [facility] Eos % 2.4 % 06/03/2024 2:37 AM EDT [facility] Eos Absolute 0.27 0.00 - 0.40 x10(3)/mc L 06/03/2024 2:37 AM EDT [facility] Basophil % 0.8 % 06/03/2024 2:37 AM EDT [facility] Baso Absolute 0.09 0.00 - 0.10 x10(3)/mc L 06/03/2024 2:37 AM EDT [facility] Immature Gran % 0.4 % 2:37 AM EDT [facility] Immature Gran Absolute 0.05(H) 0.00 - 0.04 x10(3)/mc L 06/03/2024 2:37 AM EDT [facility] Blood VENOUS BLOOD SPECIMEN / Unknown IP Care Team Draw / Unknown 06/03/2024 2:13 AM EDT 06/03/2024 2:31 AM EDT hSahnaz Scanlon MD HEMATOLOGY ORDERABLE S [facility] [place] [address] * Lipid Panel (Reflex Direct LDL) (06/03/2024 2:13 AM EDT) Cholesterol, Total 76 mg/dL 06/03/2024 3:02 AM EDT [facility] Comment: Desirable: < 200 mg/dL Borderline High: 200 - 239 mg/dL High: > or = 240 mg/dL Triglyceride 75 mg/dL 06/03/2024 3:02 AM T [facility] Comment: Normal: <150 mg/dL Borderline High: 150-199 mg/dL High: 200-499 mg/dL Very High: > or =500 mg/dL HDL Cholesterol 39 mg/dL 3:02 AM T [facility] Comment:Males: High Risk: <4 0 mg/dL LDL Cholesterol 21 mg/dL 3:[address] [facility] Comment: Desirable: <100 mg/dL Above Desirable: 100-129 mg/dL Borderline High: 130-159 mg/dL High: 160-189 mg/dL Very High: > or =190 mg/dL Note: LDL calculation updated to the NIH LDL formula as of 03/07/2024 Non-HDL Cholesterol 37 mg/dL 06/03/2024 3:[address] [facility] Comment: Desirable: <130 mg/dL Above Desirable: 130-159 mg/dL Borderline High: 160-189 mg/dL High: 190-219 mg/dL Very High: > or = 220 mg/dL Blood VENOUS BLOOD SPECIMEN / Unknown IP Care Team Draw / Unknown 06/03/2024 2:13 AM EDT 06/03/2024 2:32 AM EDT [facility]ATORY - 06/03/2024 3:02 AM [...] ACC/AHA Guidelines (most recently Bruce hermosillo al. [facility] 05/07/22): * For individuals with atherosclerotic cardiovascular [...] artery disease) Shahnaz Scanlon MD CHEMISTRY ORDERABLES [facility] [place] [address] * (ABNORMAL) APTT (06/03/2024 2:13 AM EDT) Partial Thromboplastin Time 105(HHH) 25 - 37 sec 06/03/2024 4:13 AM EDT [facility] Comment: The PTT is NOT appropriate for heparin monitoring. Use the Anti-Xa level for heparin monitoring (HEP UFH) or LMWH monitoring (HEP LMW). A PTT less than 37 seconds generally indicates adequate hemostasis. Blood VENOUS BLOOD SPECIMEN / Unknown IP Care Team Draw / Unknown 06/03/2024 2:13 AM EDT 06/03/2024 2:32 AM EDT Shahnaz Scanlon MD HEMATOLOGY ORDERABLE S [facility] [place] [address] * Prothrombin Time (06/03/2024 2:13 AM EDT) Prothrombin Time 11.5 9.4 - 12.5 sec 06/03/2024 4:13 AM EDT [facility] International Normalization Ratio 1.0 <=4.9 06/03/2024 4:13 AM EDT [facility] Comment: An INR < 2.0 [...] EDT Shahnaz Scanlon MD HEMATOLOGY ORDERABLE S [facility] [place] [address] * Hepatic Function Panel (06/03/2024 2:13 AM EDT) Albumin 3.8 3.2 - 5.2 g/dL 06/03/2024 3:02 AM EDT [facility] Aspartate Aminotransferase 20 <=39 unit/L 06/03/2024 3:02 AM EDT [facility] Alanine Aminotransferase 12 0 - 55 unit/L 06/03/2024 3:02 AM EDT [facility] Alkaline Phosphatase 76 40 - 130 unit/L 06/03/2024 3:02 AM EDT [facility] Bilirubin, Total 0.4 <=1.3 mg/dL 06/03/2024 3:02 AM EDT [facility] Bilirubin, Direct <0.2 0.0 - 0.3 mg/dL 06/03/2024 3:02 AM EDT [facility] Protein, Total 7.0 6.1 - 8.0 g/dL 06/03/2024 3:02 AM EDT [facility] Blood VENOUS BLOOD SPECIMEN / Unknown IP Care Team Draw / Unknown 06/03/2024 2:13 AM EDT 06/03/2024 2:32 AM EDT Shahnaz Scanlon MD CHEMISTRY ORDERABLES Performing Organization Address City/[facility]/ZIP Co de Phone Number [facility] [place] [address] * (ABNORMAL) pro-Brain Natriuretic Peptide (06/03/2024 2:13 AM EDT) NT-proBNP 1,628(H) <=124 pg/mL 06/03/2024 4:15 AM EDT [facility] Blood VENOUS BLOOD SPECIMEN / Unknown IP Care Team Draw / Unknown 06/03/2024 2:13 AM EDT 06/03/2024 2:32 AM EDT Shahnaz Scanlon MD CHEMISTRY ORDERABLES [facility] [place] [address] * Phosphorus (06/03/2024 2:13 AM EDT) Phosphorus 4.4 2.5 - 4.5 mg/dL 06/03/2024 3:02 AM EDT [facility] Blood VENOUS BLOOD SPECIMEN / Unknown IP Care Team Draw / Unknown 06/03/2024 2:13 AM EDT 06/03/2024 2:32 AM EDT Shahnaz Scanlon MD CHEMISTRY ORDERABLES Performing Organization Address [facility] Co de Phone Number [facility] [place] [address] * EKG 12 Lead (06/03/2024 1:45 AM EDT) Ventricular rate 63 BPM MUSE SYSTEM Atrial Rate 63 BPM MUSE SYSTEM P-R Interval 168 ms MUSE SYSTEM QRS Duration 96 ms MUSE SYSTEM Q-T Interval 400 ms MUSE SYSTEM QTC Calculated (Bezet) 409 ms MUSE SYSTEM Calculated P [place] 65 degrees MUSE SYSTEM Calculated R [place] 70 degrees MUSE SYSTEM Calculated T [place] -86 degrees MUSE SYSTEM INTERPRETATION Atrial-sensed ventricular-paced rhythm Abnormal ECG No previous ECGs available I personally reviewed the tracing and edited the fellows interpretation Confirmed by fellow Sunni Agudelo ([id number]) on 06/04/2024 3:55:40 PM Confirmed by MD Cantrell Jonathan C. ([id number]) on 06/05/2024 11:46:48 AM MUSE SYSTEM 06/03/2024 1:45 AM EDT 06/05/2024 11:46 AM EDT Shahnaz Scanlon MD ECG ORDERABLES Performing Organization Address [facility] Co de Phone Number MUSE SYSTEM * CARDIAC CATHETERIZATION (06/03/2024 12:42 AM EDT) Anatomical Region Laterality Modality Other Narrative 06/04/2024 2:22 PM EDT ?[facility] ? Cardiac Catheterization/Intervention Report ? Patient Name: George Mehta L. ? Procedure Date: 06/02/2024 ? A #: [id number] ? Primary Physician: Nuha Shen I ? Case #: [id number] ? File Name: [id number] ? Catheterization Order Number: [id number] ? [facility] ? Final Report [place], [place] ? Patient Name: ? George L. Tyson ? ID#: [id number] ? : ?1955 ? Procedure Date: ? June 02, 2024 ? Case #: ? [id number] ? Room: ? 5 ? Case Physician: [...] procedure was Emergent. The indication for ?the sleep lab technician visit is ACS less than [...] ?3.5 guiding catheter and a 3.5 Fr [facility] [place] 20 Mhz using Manual ?pullback. ??Imaging was [...] 3.5 guiding catheter and a 3.5 Fr [facility] [place] 20 Mhz using ?Manual pullback. ??Imaging was [...] George Mehta Procedure Date: 06/02/2024 A #: [id number] Primary Physician: Nuha Shen I Case #: [id number] File Name: [id number] Catheterization Order Number: [id number] [facility] FinalReport [place], [place] Patient Name: George Mehta ID#:[id number] :1955 Procedure Date: June 02, 2024 Case [...] was designated as ASA Class IV. The [facility] clinicalfrailty scale is 5: Mildly Frail. Diagnostic Tests: Electrocardiography: EKG was assessed by ECG. EKG was Abnormal. EKG showed STDeviation >= 0.5 mm. Medications Prior to Procedure: Sacubitril and Valsartan, Aspirin, Beta Erik, Statin and Thrombolytic (any). Indications for Diagnostic Cath: The priority of the diagnostic procedure was Emergent. Theindication for the sleep lab technician visit is ACS less than [...] units of heparin were administered. A total [id number] of Omnipaque were opened, 84cc of Omnipaque were administered [id number] of Omnipaque were wasted. Radiation: Fluoro time [...] 3.5 guiding catheter and a 3.5 Fr [facility] [place] 20 Mhz usingManual pullback. Imaging was successful. [...] 3.5 guiding catheter and a 3.5 Fr [facility] [place] 20 Mhzusing Manual pullback. Imaging was successful. Indication: IVUS performed for pre intervention planning. Findings Pre-Intervention: scattered plaque, calcification and [id number] degrees calcification. Findings Post-Intervention: Stent not imaged [...] * POC, GLUCOSE (06/02/2024 11:31 PM EDT) [facility] Signature Glucometer, POC 156 65 - 199 mg/dL 06/02/2024 11:31 PM EDT [facility] Comment:Supplemental ranges: <140 mg/dL before meals <180 mg/dL all other times of the day. Blood CAPILLARY BLOOD / Unknown 06/02/2024 11:31 PM EDT 06/02/2024 11:31 PM EDT Narrative Authorizing Provider Result Saranya Rojo MD POINT OF CARE TEST ORDERABLES Performing Organization Address City/State/[facility] Co de Phone Number [facility] [place] [address] documented in this encounter Visit Diagnoses Diagnosis STEMI (ST elevation myocardial infarction)- Primary Acute myocardial infarction, unspecified site, episode of care unspecified ST elevation myocardial infarction (STEMI), unspecified artery Coronary artery disease involving [place] coronary artery of [place] heart without angina pectoris 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 Give NV if unable to take PO, Routine Given [...] dose on Fri06/14/24 at 2100, Until Discontinued, [place] teeth and / or gums. Scan the CHG vial in the [employer] Q-Care Oral Care Kit from floor stock. Ventilator-associated pneumonia prophylaxis For use in ICU/Critical care locations ONLY. Obtain kit from Floor Stock location. Scan CHG vial in the [employer] Q-Care Oral Care Kit, Routine Given 06/14/2024 [...] restart at 50% of previous rate. Call bottle house pumper if goal not achieved at maximum rate. [...] in sodium chloride 0.9% infusion (for CVCC, [employer] Account Manager, OR use only) 3-5 mL/hr, Intravenous, CONTINUOUS, [...] MEALS, First dose (after last modification) on [facility] 06/19/24 at 0800, Until Discontinued, MEAL [...] MEALS, First dose (after last modification) on [facility] 06/17/24 at 0800, Until Discontinued, MEAL [...] MEALS, First dose (after last modification) on [facility] 06/17/24 at 1700, Until Discontinued, MEAL [...] TIMES DAILY WITH MEALS, First dose on [place] 06/06/24 at 1200, Until Discontinued, MEAL ASSOCIATED Give 1 unit for every 10 grams carbohydrate. Hold if not eating or if BG less than 70 mg/dL. , Routine Given 06/06/2024 12:25 PM EST 4 Units insulin lispro (HumaLOG;Admelog) (100 unit/mL) subcutaneous injection vial 1-10 Units 1-10 Units, Subcutaneous, EVERY 4 HOURS SCHEDULED, First dose (after last modification) on [facility] 06/19/24 at 0800, Until Discontinued, [...] 2100, Last dose on Fri06/23/24 at 0900, Shank Pinner recommended duration is 3 days., Routine Given [...] 8:02 PM EST 2 tablets sodium chloride ([place]) 0.65 % nasal spray 1 spray 1 [...] 2.0 L/min/M2. Maximum volume 2 L. Call bottle house pumper for additional fluid orders: pager #[phone]. Rate/Dose Verify 06/15/2024 10:00 AM EST 1 [...] 2100, Last dose on Fri06/23/24 at 0900, Shank Pinner recommended duration is 3 days., Routine 2043 [...] oral route first line., Routine sodium chloride ([place]) 0.65 % nasal spray 1 spray 1 [...] 6 hours upon arrival to Unit. Give NV if unable to take PO, Routine Group [...] Routine documented in this encounter Care Teams State Director Relationship Specialty Start Date End Date Mauro Berumen MD [address] [place] [address] PCP - General Family Medicine 06/02/24 documented as of this encounter
--- OUTSIDE RECORDS SUMMARY | 2024-09-08 10:57 | XMS_ITS | Encounter Summary ---
Author Organization [facility] Address [facility] [place] [address] Care Team Providers Care Manager Social Responsibility Name Role Phone Mauro Berumen MD Primary Care Provider Encounter Details Date Type Department Care Team (Latest Contact Info) Description 06/14/2024 Unscheduled Encounter Cardiology at [address] [place] [phone] Ross Corbin PA [facility] [place] [address] Cardiac resynchronization therapy defibrillator (UPSTAIRS MAID-D) in place [Z95.810] Social History Tobacco Use Types Packs/Day Years Used Date Smoking Tobacco: Every Day Cigarettes Smokeless Tobacco: Never [facility] Utilities Answer Date Recorded In the [...] AM EST Cardiac Device Interrogation Arturo Mehta [id number] 06/14/2024 History: Arturo Mehta is a 69 year old male with a PMH significant for HTN, HLD, DM2, current TUD (abstinent since admission), ASCVD with multiple prior [place] and PCIs, 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 Vitals: Last Set of Vitals and range of vitals over past 24 hours: Range last 24 hrs Temperature Temp: [36 ??C (96.8 ??F)-37 ??C (98.6 ??F)] Heart Rate Heart Rate: [57-72] Blood Pressure BP: (99-138)/(66-86) Respiratory Rate Resp: [13-24] SpO2 SpO2: [90 %-98 %] Device Interrogation: Data Generator: MedQuNano Amplia MRI Quad UPSTAIRS MAID-D [id number] / [id number] - Left-sided implant; 06/16/19 RA Lead: Medtronic 4076 CapSureFix Novus [id number]; 06/16/19 RV Lead: Medtronic 6935M / [id number]; 06/16/19 LV Lead: Medtronic 4298 Attain Performa MRI / [id number]; 06/16/19 Diagnostics Pacing Mode: DDD @ 50/130 [...] scheduled. Ross Corbin PA-C, PhD 06/14/2024 Pager: [phone] documented in this encounter Plan of Treatment Upcoming Encounters Date Type Department Care Team (Late st Contact Info) Description 09/29/2024 2:00 PM EST Office Visit Cardiology at [address] [phone] Moi Falcon MD [facility] [place] [address] documented as of this encounter Visit Diagnoses Diagnosis Cardiac resynchronization therapy defibrillator (UPSTAIRS MAID-D) in place [Z95.810] documented in this encounter Care Teams Manager Social Responsibility Relationship Specialty Start Date End Date Mauro Berumen MD [address] [place] [id number] PCP - General Family Medicine 06/02/24 documented as of this encounter
--- OUTSIDE RECORDS SUMMARY | 2024-09-08 10:57 | XMS_ITS | Encounter Summary ---
Author Organization [facility] Address [facility] [place] [address] Care Team Providers Care Rest Room Maid Name Role Phone Mauro Berumen MD Primary Care Provider [phone] Encounter Details Date Type Department Care Team (Latest Contact Info) Description 06/15/2024 Unscheduled Encounter Cardiology at [address] [place] [phone] Ross Corbin PA [facility] [place] [address] Cardiac resynchronization therapy defibrillator (ONYX CHIP TERRAZZO WORKER-D) in place [Z95.810] Social History Tobacco Use Types Packs/Day Years Used Date Smoking Tobacco: Every Day Cigarettes Smokeless Tobacco: Never [facility] Utilities Answer Date Recorded In the [...] PM EST Cardiac Device Interrogation Arturo Mehta [id number] 06/15/2024 History: Arturo Mehta is a 69 year old male with a PMH significant for HTN, HLD, DM2, current TUD (abstinent since admission), ASCVD with multiple prior [place] and PCIs, 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 Today, EP was asked to reprogram his ONYX CHIP TERRAZZO WORKER-D device for the procedure. Vitals: Last Set of Vitals and range of vitals over past 24 hours: Range last 24 hrs Temperature Temp: [34.9 ??C (94.8 ??F)-37.6 ??C (99.7 ??F)] Heart Rate Heart Rate: [80-107] Blood Pressure BP: (115)/(65) Respiratory Rate Resp: [11-24] SpO2 SpO2: [92 %-100 %] Device Interrogation: Data Generator: Medtronic Amplia MRI Quad ONYX CHIP TERRAZZO WORKER-D [id number] / [id number] - Left-sided implant; 06/16/19 RA Lead: Medtronic 4076 CapSureFix Novus [id number]; 06/16/19 RV Lead: Medtronic 6935M / [id number]; 06/16/19 LV Lead: Medtronic 4298 Attain Performa MRI / [id number]; 06/16/19 Alerts VF Detection OFF, 3+ VF or 3+ FVT Rx Off. Diagnostics Pacing Mode: DDD @ 80/130 bpm Presenting EGMs: BV Underlying Rhythm: Sinus tachycardia ~100 bpm Atrial Pacin.7% Ventricular Pacin.6% ONYX CHIP TERRAZZO WORKER Pacin% Battery and Leads Voltage: 2.93 V [...] - Contact the device clinic at pager [phone] for any further programming adjustments. Ross Corbin PA-C, PhD 06/15/2024 Pager: [phone] documented in this encounter Plan of Treatment Upcoming Encounters Date Type Department Care Team (Late st Contact Info) Description 09/29/2024 2:00 PM EST Office Visit Cardiology at [address] [phone] Moi Falcon MD [facility] [place] [address] documented as of this encounter Visit Diagnoses Diagnosis Cardiac resynchronization therapy defibrillator (ONYX CHIP TERRAZZO WORKER-D) in place [Z95.810] documented in this encounter Care Teams Rest Room Maid Relationship Specialty Start Date End Date Mauro Berumen MD [address] [place] [address] PCP - General Family Medicine 06/02/24 documented as of this encounter
--- OUTSIDE RECORDS SUMMARY | 2024-09-08 10:58 | XMS_ITS | Encounter Summary ---
Author Organization [facility] [place] [address] Care Team Providers Care Tour Agent Name Role Phone Mauro Berumen MD Primary Care Provider [phone] Reason for Visit * Auth/Cert Specialty Diagnoses / Procedures Referred By Carroll t Referred To Contact Diagnoses STEMI (ST elevation myocardial infarction) STEMI Procedures CARDIAC CATHETERIZATION EMERGENCY Delroy Monterroso MD [facility] [address] [facility] Referral ID Status Reason Start Date Expiration Date Visits Re quested Visits Authorized [id number] 1 1 Encounter Details Date Type Department Care Team (Late st Contact Info) Description 06/14/2024 7:30 AM EST - 06/14/2024 2:08 PM EST Surgery [place] [address] Bobby Loja MD [facility] [place] [address] @CABG, USING ARTERIAL GRAFT;SINGLE ARTERIAL GRAFT (WRVU 33.75) Social History Tobacco Use Types Packs/Day Years Used Date Smoking Tobacco: Every Day Cigarettes Smokeless Tobacco: Never Tobacco Cessation:Ready to Q uit: No; Counseling Given: Yes [facility] Utilities Answer Date Recorded In the [...] Patient Age: 69 y.o. Birthdate: 1955 Language: Tajik Race: Choose not to Disclose Ethnicity: Not nor Admit Date: 06/02/2024 Discharge Date: 06/21/2024 Attending Physician: Bobby Loja MD Follow-up Recommendations for Providers: Please continue routine management of cardiovascular risk factors including blood pressure, lipids,glucose, etc. Please note any changes to medications. Patient to follow up with PCP, Mauro Berumen MD, in 1-2 weeks. Patient to follow up with Cruise Guide, Kristen Cardenas in 2-3 weeks. Patient to follow up with Cardiac Surgeon, Dr. Bobby Loja, in 4 wks. Inpatient Provider Contact Information: [facility] Section of Cardiac Surgery [facility] [address] FAX [phone] Discharge Diagnoses (Hospital Problems) Primary Diagnoses: STEMI [...] performed by Bobby Loja MD [facility] MAIN OR PRO CABG, ARTERY-VEIN, TWO N/A 06/14/2024 @CABG, TWO VENOUS GRAFTS & ARTERIAL GRAFT (WRVU 7.93) performed by Bobby Loja MD at [facility] OR PRO ENDOSCOPY W/VIDEO-ASST VEIN HARVEST, CABG N/A 06/14/2024 ENDOSCOPIC HARVEST VEIN(S) FOR CABG (WRVU 0.31) performed by Bobby Loja MD at [facility] MAIN OR PRO EXC MEDIASTINAL TUMOR N/A 06/14/2024 @EXCISION OF MEDIASTINAL TUMOR (WRVU 19.55) performed by Bobby Loja MD at [facility] MAIN OR PRO INSERT INTRA-AORTIC BALLOON ASST DEVICE PERCUTANEOUS N/A 06/13/2024 @INSERTION OF IABP,PERCUTANEOUS (WRVU 4.84) performed by Nuha Shen MD at [facility] CATH LABS PRO UNLISTED CARDIAC SURG PROCEDURE N/A 06/14/2024 EXPLORATION AND OVERSEW ATRIAL APPENDAGE (WRVU 5.94) performed by Bobby Loja MD at [facility] [place] Prior To Admission Medications [...] y.o. male with a PMHx of previous [place] s/p PCI x3, ICM/HFrEF (LVEF 30%) s/p ICD, DMII, HTN, HLD, remote melanoma, and smoker who presented to [facility] last night via EMS after developing acute, severe chest pain while watching TV. Patient was ruled in for STEMI, given TNK, ASA, plavix, heparin gtt, and sent [place] [facility] [place]. LHC demonstrated severely calcified left coronary system with notable LCx 75/80% lesions and PERIODICALS LIBRARY ASSISTANT OM1 with ISR with collateral retrograde filling, [...] Hospital Course: George Mehta was admitted to [facility] on 06/02/2024 via the CardiologyService with an anterior STEMI after receiving lytics at OSH. He was brought to the laborer hide house which showed severely calcified left coronary system with notable LCx 75/80% lesions and PERIODICALS LIBRARY ASSISTANT OM1 with ISR with collateral retrograde filling, [...] 2 tablespoons of dried fruit. Milk and dd-qohce-dmlnj yogurt have 15 grams of carbs in a serving. A serving is 1 cup of milk or 3/4 cup (6 oz) of cw-bnwcv-yvsde yogurt. Starchy vegetables have 15 grams of carbs in a serving. A serving is ?? cup of mashed potatoes or sweet potato; 1 cup winter squash; ?? of a small baked potato; ?? cup of cooked beans; or ?? cup cooked corn or green peas. Learn how much carbs to eat each day and at each meal. A dietitian or cisco certified network professional can teach you how to keep track [...] Bobby Loja and/or the Cardiac Surgery Physician Calker Team may be reached at . Weight: [...] Dr. Bobby Loja. You may use a [place] Track or treadmill but avoid any pulling [...] friends, go to a movie, go to spiritism, etc. Heavy activities: No hunting, skiing, jogging, [...] should resume a low fat, low cholesterol, [place] Heart [employer] Diet/Diabetic diet. Driving: No driving [...] while being managed by your PCP and/or Cruise Guide. For future medication refills, please refer to your PCP and/or Cruise Guide after your discharge from our service. Thank you REMOVE CHEST TUBE SUTURES ON OR AFTER 06/24/2024 Home oxygen therapy: N/A Follow up appointments: You should follow up with your PCP, Mauro Berumen MD, in 1-2 weeks. You should follow up with your Cruise Guide, Dr CARDENAS. You have an appointment with your Cardiac Surgeon, Dr. Bobby Loja, in 4 wks. Cardiac Rehabilitation: George Mehta was seen today regarding participation in the outpatient Phase 2 Cardiac Rehabilitation at [facility]. The patient agrees to a referral to this program. The referral will be sent at discharge and the patient should be contacted by the program within 1-2 weeks from discharge. Future Appointments and Orders Future Orders Complete By Expires Referral to Cardiac Rehab [[id number] Custom] As directed Process Instructions: If no progress note charted, please enter Clinical details in comments. Scheduling Instructions: Questions: My question or request is: s/p CABG- cardiac rehab at [facility] Referral to Home Health [REF34 Custom] As directed Process Instructions: If no progress note charted, please enter Clinical details in comments. Scheduling Instructions: Comments: Please evaluate George Mehta for admission to Home Health. [address] [facility] [address] (home) Date of : 1955 Inpatient DOCUMENTATION FOR VNA SERVICES (INCLUDING THOSE PATIENTS WITH MEDICARE COVERAGE REQUIRINGHOME VNA SERVICES AND/OR HOSPICE SERVICES) PATIENT'S LOCATION: George Mehta [address] [facility] [address] (home) Telephone Information: Mass Spectroscopist's Name: self In discussion with the attending physician, it is certified that this patient is under their care and that they, or a Nurse Practitioner, or Physician Calker who is working directly with them, hada [...] for services as follows: HOME HEALTH AGENCY: [facility] [address] [place] [id number] RN orders: Cardiopulmonary assessment, incisional assessment, assess [...] issues please call the Cardiology Office at [phone] FOR MEDICARE ONLY: (please delete this section [...] care: As above. Signed: KEILA HANLEY APRN [facility] Section of Cardiac Surgery [facility] [address] FAX [phone] Date: 06/21/2024 CC: MD Antonino Tinajero Joshua R, PA [address] [place] [address] [place] [address] documented in this encounter Discharge Instructions * [...] 2 tablespoons of dried fruit. Milk and ye-tjxgw-cadsr yogurt have 15 grams of carbs in a serving. A serving is 1 cup of milk or 3/4 cup (6 oz) of zc-lvlgb-bxwcg yogurt. Starchy vegetables have 15 grams of carbs in a serving. A serving is ?? cup of mashed potatoes or sweet potato; 1 cup winter squash; ?? of a small baked potato; ?? cup of cooked beans; or ?? cup cooked corn or green peas. Learn how much carbs to eat each day and at each meal. A dietitian or cisco certified network professional can teach you how to keep track [...] Bobby Loja and/or the Cardiac Surgery Physician Calker Team may be reached at . Weight: [...] Dr. Bobby Loja. You may use a [place] Track or treadmill but avoid any pulling [...] friends, go to a movie, go to spiritism, etc. Heavy activities: No hunting, skiing, jogging, [...] should resume a low fat, low cholesterol, [place] Heart [employer] Diet/Diabetic diet. Driving: No driving [...] while being managed by your PCP and/or Cruise Guide. For future medication refills, please refer to your PCP and/or Cruise Guide after your discharge from our service. Thank you REMOVE CHEST TUBE SUTURES ON OR AFTER 06/24/2024 Home oxygen therapy: N/A Follow up appointments: You should follow up with your PCP, Mauro Berumen MD, in 1-2 weeks. You should follow up with your Cruise Guide, Dr CARDENAS. You have an appointment with your Cardiac Surgeon, Dr. Bobby Loja, in 4 wks. Cardiac Rehabilitation: George Mehta was seen today regarding participation in the outpatient Phase 2 Cardiac Rehabilitation at [facility]. The patient agrees to a referral to [...] RN - 06/21/2024 8:32 AM EST During [facility] Purposeful Rounding, an assessment of your patient's venous access was performed [facility] theVascular Access Service. The following tasks [...] RN - 06/21/2024 8:31 AM EST During [facility] Purposeful Rounding, an assessment of your [...] MARIALUISA clipping. PMH of chronic HFrEF s/p CREATIVE ASSISTANT/ICD, IDDM2, HTN, HLD, remote melanoma, active smoker. [...] 2 tablespoons of dried fruit. Milk and te-xwogb-ymfzz yogurt have 15 grams of carbs in a serving. A serving is 1 cup of milk or 3/4 cup (6 oz) of va-agovh-rxqgc yogurt. Starchy vegetables have 15 grams of carbs in a serving. A serving is ?? cup of mashed potatoes or sweet potato; 1 cup winter squash; ?? of a small baked potato; ?? cup of cooked beans; or ?? cup cooked corn or green peas. Learn how much carbs to eat each day and at each meal. A dietitian or cisco certified network professional can teach you how to keep track [...] cheese, and peanut butter. Alejandra Baumann APRN [facility] Endocrinology Diabetes Management Pager [phone] Weekends please page [phone] * Eric Packer PA - 06/20/2024 7:44 AM EST Cardiac Surgery Progress Note George Mehta is a 69 y.o. male with a history of CAD s/p multiple PCI who presented with an anterior STEMI and was given lytics. Cath showed MV CAD without culprit vessel. He is now 6 Days Post-OpCABGx3 and MARIALUISA clipping. PMH of chronic HFrEF s/p CREATIVE ASSISTANT/ICD, IDDM2, HTN, HLD, remote melanoma, active smoker. 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 06/20/2024 Between the hours of 1800 - 0600 and on the weekends please page [phone]. * Alejandra Baumann APRN - 06/20/2024 7:21 AM EST Follow Up Diabetes Consult Patient Interview Blood glucose values and insulin use reviewed. psychiatric nursing assistant BG to 59 despite decrease in [...] MARIALUISA clipping. PMH of chronic HFrEF s/p CREATIVE ASSISTANT/ICD, IDDM2, HTN, HLD, remote melanoma, active smoker. psychiatric nursing assistant BG to 59 despite decrease in [...] based on ISF 20 Alejandra Baumann APRN [facility] Endocrinology Diabetes Management Pager [phone] Weekends please page [phone] Insulin Discharge Instructions Preliminary Diabetes Discharge Instructions [...] juice or regular (not diet) soda 6 Sharewaves small box of raisins 4 glucose tablets [...] 2 tablespoons of dried fruit. Milk and ee-opzcr-lhpkj yogurt have 15 grams of carbs in a serving. A serving is 1 cup of milk or 3/4 cup (6 oz) of iu-guzps-coznd yogurt. Starchy vegetables have 15 grams of carbs in a serving. A serving is ?? cup of mashed potatoes or sweet potato; 1 cup winter squash; ?? of a small baked potato; ?? cup of cooked beans; or ?? cup cooked corn or green peas. Learn how much carbs to eat each day and at each meal. A dietitian or cisco certified network professional can teach you how to keep track [...] MARIALUISA clipping. PMH of chronic HFrEF s/p CREATIVE ASSISTANT/ICD, IDDM2, HTN, HLD, remote melanoma, active smoker. 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 Jeffy Hood MD 06/19/2024 Between the hours of 1800 - 0600 and on the weekends please page [phone]. * Alejandra Baumann, INFORMATION SECURITY ARCHITECT - 06/19/2024 7:09 AM EST Follow Up Diabetes Consult Patient Interview Blood glucose values and insulin use reviewed. Jardiance added back yesterday, early childhood lead teacher low BGto 51. Glargine reduced to [...] MARIALUISA clipping. PMH of chronic HFrEF s/p CREATIVE ASSISTANT/ICD, IDDM2, HTN, HLD, remote melanoma, active smoker. Jardiance added back yesterday. psychiatric nursing assistant low BG to 51. Glargine reduced [...] 2 tablespoons of dried fruit. Milk and gn-kxvic-eiaks yogurt have 15 grams of carbs in a serving. A serving is 1 cup of milk or 3/4 cup (6 oz) of dj-ngkys-eitjf yogurt. Starchy vegetables have 15 grams of carbs in a serving. A serving is ?? cup of mashed potatoes or sweet potato; 1 cup winter squash; ?? of a small baked potato; ?? cup of cooked beans; or ?? cup cooked corn or green peas. Learn how much carbs to eat each day and at each meal. A dietitian or cisco certified network professional can teach you how to keep track [...] cheese, and peanut butter. Alejandra Baumann APRN [facility] Endocrinology Diabetes Management Pager [phone] Weekends please page [phone] * Hilda Resendez PTA - 06/18/2024 9:19 AM EST Physical Therapy Note 2 Patient profile: George Mehta is a 69 y.o. male with a history of CAD s/p multiple PCI who presented with an anterior STEMI and was given lytics. Cath showed MV CAD without culprit vessel. He is now 1 Day Post-Op CABGx3 and MARIALUISA clipping. PMH of chronic HFrEF s/p CREATIVE ASSISTANT/ICD, IDDM2, HTN, HLD, remote melanoma, active smoker. Interval History: Per last cardiac surgery note on 06/18/2024 Cr improved 1.4 on lasix 40 iv bid -1.5L, made 2.5L urine Coreg, entresto restarted Floor status Social History: Pt lives with his in a 1 level apartment with no steps to enter. 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 He sleeps in a recliner at baseline. Precautions/Special Considerations: Sternal precautions, PIV, at risk to fall, PPM Mobility and Positioning Recommendations: Pt to utilize no AD, supervision for ambulation and transfers w/ staff developer as able. Please encourage up to chair [...] least restrictive device Time IN / OUT: 5060-9258 Total Time: 11 minutes; TEF 1 Hilda Resendez PTA Pager: [phone] Physical Therapy Inpatient Rehabilitation Department * Keila [...] MARIALUISA clipping. PMH of chronic HFrEF s/p CREATIVE ASSISTANT/ICD, IDDM2, HTN, HLD, remote melanoma, active smoker. 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 Restarting jardiance #Active smoker Duoneb prn Dispo: CVCC, Full code, tx to floor Discussed with attending surgeon on rounds this morning. KEILA HANLEY, JOSÉ ANTONIO 06/18/2024 Between the hours of 1800 - 0600 and on the weekends please page [phone]. * Alejandra Baumann APRN - 06/17/2024 3:29 [...] MARIALUISA clipping. PMH of chronic HFrEF s/p CREATIVE ASSISTANT/ICD, IDDM2, HTN, HLD, remote melanoma, active smoker. [...] based on ISF 20 Alejandra Baumann APRN [facility] Endocrinology Diabetes Management Pager [phone] Weekends please page [phone] 35 minutes were spent over the course [...] MARIALUISA clipping. PMH of chronic HFrEF s/p CREATIVE ASSISTANT/ICD, IDDM2, HTN, HLD, remote melanoma, active smoker. [...] 0600 and on the weekends please page [phone]. * Raymond Carlton MD - 06/16/2024 1:11 PM EST CARDIAC CRITICAL CARE ATTENDING STAFF PROGRESS NOTE Patient seen and examined. George Mehta is a 69 y.o. male with: Active Hospital Problems Diagnosis STEMI (ST elevation myocardial infarction) Cardiac resynchronization therapy defibrillator (CREATIVE ASSISTANT-D) - Medtronic Amplia Cardiomyopathy, ischemic Acute on chronic heart failure with reduced ejection fraction (HFrEF, <= 40%) Coronary artery disease involving apache coronary artery of apache heart without angina pectoris Type 2 diabetes [...] encouragement provided Patient screened for f/u and typewriter ribbon winder met pt at bedside. Pt states his [...] unless consulted in the interim. RICHA Simmons Set O Type Operator * Octaviano Horvath PA - 06/16/2024 8:07 AM EST Cardiac Surgery Progress Note George Mehta is a 69 y.o. male with a history of CAD s/p multiple PCI who presented with an anterior STEMI and was given lytics. Cath showed MV CAD without culprit vessel. He is now 2 Days Post-OpCABGx3 and MARIALUISA clipping. PMH of chronic HFrEF s/p CREATIVE ASSISTANT/ICD, IDDM2, HTN, HLD, remote melanoma, active smoker. [...] 0600 and on the weekends please page [phone]. * Jono Fernandez, PT - 06/15/2024 4:09 PM EST Physical Therapy Evaluation Patient profile: George Mehta is a 69 y.o. male with a history of CAD s/p multiple PCI who presented with an anterior STEMI and was given lytics. Cath showed MV CAD without culprit vessel. He is now 1 Day Post-Op CABGx3 and MARIALUISA clipping. PMH of chronic HFrEF s/p CREATIVE ASSISTANT/ICD, IDDM2, HTN, HLD, remote melanoma, active smoker. 24h Events: From OR on Dobutamine IABP removed Bedrest ended ~2100, sedation weaned Extubated ~0200 Dobutamine weaned to 1 this morning, CI 2.6, shut off and repeat CI 2.4 Social History: Pt lives with his in a 1 level apartment with no steps to enter. 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 He sleeps [...] outlined inthis evaluation. JONO FERNANDEZ, PT Pager: [phone] Physical Therapy Inpatient Rehabilitation Department Time IN / OUT: 8460-6832 Total Time: 33 (eval) minutes * Alejandra Baumann APRN - 06/15/2024 11:39 AM EST Follow Up Diabetes Consult Patient Interview Blood glucose values and insulin use reviewed. Pt remains on an insulin drip today following [id number] MARIALUISA clipping. George continues to complain of [...] MARIALUISA clipping. PMH of chronic HFrEF s/p CREATIVE ASSISTANT/ICD, IDDM2, HTN, HLD, remote melanoma, active smoker. [...] based on ISF 20 Alejandra Baumann APRN [facility] Endocrinology Diabetes Management Pager [phone] Weekends please page [phone] 50 minutes were spent over the course [...] elevation myocardial infarction) Cardiac resynchronization therapy defibrillator (CREATIVE ASSISTANT-D) - Medtronic Amplia Cardiomyopathy, ischemic Acute on chronic heart failure with reduced ejection fraction (HFrEF, <= 40%) Coronary artery disease involving apache coronary artery of apache heart without angina pectoris Type 2 diabetes [...] with h/o DM, CAD with prior PCI, CREATIVE ASSISTANT-D who presented with crushing chest pain, found [...] MARIALUISA clipping. PMH of chronic HFrEF s/p CREATIVE ASSISTANT/ICD, IDDM2, HTN, HLD, remote melanoma, active smoker. [...] sternotomy dressing CDI, saphenectomy dressing CDi Tubes/Lines/Drains: Deland, RIJ, A-line, Mediastinal marcos and bilateral pleural [...] 0600 and on the weekends please page [phone]. * Yoli Donaldson MANAGEMENT PSYCHOLOGIST - 06/15/2024 5:35 AM EST AMV Protocol: [...] with h/o DM, CAD with prior PCI, CREATIVE ASSISTANT-D who presented with crushing chest pain, found [...] 1.5 PTT 31 T/L/D Barr ETT CVL [place] CT Pacing wires ASSESSMENT, MANAGEMENT, and DECISION MAKIN y.o. male with h/o DM, CAD with prior PCI, CREATIVE ASSISTANT-D who presented with crushing chest pain, found [...] 0600 and on the weekends please page [phone]. * Chloé Cortez - 06/14/2024 9:36 AM [...] unless consulted in the interim. Chloé Cortez Community Support Specialist * Jim Benites MD - 06/13/2024 [...] - Mildly dilated left ventricle size with bvtwuvfk-vf-lzercqsx decreased LV systolic function. LV ejection fraction [...] (abstinent since admission), ASCVD with multiple prior [place] and PCIs, ICM/HFrEF LVEF 30% (all territories [...] elevation myocardial infarction) Cardiac resynchronization therapy defibrillator (CREATIVE ASSISTANT-D) - Medtronic Amplia Cardiomyopathy, ischemic Acute on chronic heart failure with reduced ejection fraction (HFrEF, <= 40%) Coronary artery disease involving apache coronary artery of apache heart without angina pectoris Type 2 diabetes [...] PCP: Mauro Berumen MD PCP phone number: [phone] Date of Admission: 06/02/2024 ( Hospital Day 10 days ) Attending:Ethel Carrillo MD ID: 69 y.o. male with a h/o DM type 2, HTN, HLD, current smoker (2-3 cigarettes/day), HFrEF with anICD for low EF (~30%), and CAD with prior [place] x3 with JENNA placed in [place], Melanoma, PAD, presented to [facility] with 1 hour of retrosternal CP (05/13) while watching TV, found to have STEMI. Active Problems: Active Hospital Problems Diagnosis STEMI (ST elevation myocardial infarction) Cardiac resynchronization therapy defibrillator (CREATIVE ASSISTANT-D) - Medtronic Amplia Cardiomyopathy, ischemic Acute on chronic heart failure with reduced ejection fraction (HFrEF, <= 40%) Coronary artery disease involving apache coronary artery of apache heart without angina pectoris Type 2 diabetes [...] in the last 7068 hours. Invalid input(s): [id number] Recent Labs 06/12/24 0425 06/11/24 2356 06/11/24 2025 06/11/24 1624 06/11/24 1108 06/11/24 0748 06/11/24 0357 06/11/24 0050 06/10/24 1922 06/10/24 1735 06/10/24 1125 06/10/24 0746 POCGLU 132 135 210* 81 233* 184 132 144 236* 123 216* 206* Heme No results for input(s): LDH, HAPTOGLOBIN, URICACID in the last 168 hours. ABG (Arterial Blood Gas) No results found for: PHART, PO2ART, OEL2WUR, WWX6LCD Microbiology: Microbiology Results (Last 30 days) No results found for the last 720 hours. Imaging: Results for orders placed or performed during the hospital encounter of 06/02/24 XR Chest One View (Exam End: 06/03/2024 2:41 AM) Result Value WORKSTATION ID [id number] Impression No radiographically evident acute cardiopulmonary process. Thank you for letting us participate in the care of this patient. If you are a health care provider and have any questions regarding this report, please contact the number below. For patients who have questions please contact the health rn wound care that requested your imaging first. Cardiac Morphology Function wwo Contrast (Exam End: 06/07/2024 1:10 PM) Result Value WORKSTATION ID [id number] Impression - Findings consistent with an ischemic [...] - Mildly dilated left ventricle size with pzhwcvam-ic-thtcyrqn decreased LV systolic function. LV ejection fraction [...] have questions please contact the health rn wound care that requested your imaging first. Chest wo Contrast (Generic) (Exam End: 06/03/2024 4:33 PM) Result Value WORKSTATION ID [id number] Impression Cardiomegaly. Biventricular ICD leads in place. Thank you for letting us participate in the care of this patient. If you are a health care provider and have any questions regarding this report, please contact the number below. For patients who have questions please contact the health rn wound care that requested your imaging first. Chest PA & Lateral (Generic) (Exam End: 06/07/2024 7:03 AM) Result Value WORKSTATION ID [id number] Impression Biventricular ICD leads intact and in [...] have questions please contact the health rn wound care that requested your imaging first. : Limited echo performed by fellow fabrication department supervisor to assess LV function. Left ventricle is [...] Infusions: heparin (porcine) infusion 1,400 Units/hr (06/12/24 7954) PRN Meds:.insulin lispro, glucose 40% oral geL [...] ischemic cardiomyopathy with HFrEF (~30% EF), prior [place] with stents, DM type 2, HTN, HLD, active smoker, presented with anterior STEMI. Angiography revealed severe multivessel CAD with extensive calcification and YUE 3 flow in all vessels, without a clear culprit lesion. Currently pain-free after TNK, Plavix, ASA, and heparin, with mildly elevated LVEDP at 40 mmHg and mild volume overload. 06/12/24: Patient stable, asymptomatic. Plan to go to laborer [facility] for balloon pump tomorrow, then willgo to [...] CODE Dain Colón MD Cardiology, M1-S2, Pager #[phone] 06/12/24 Associated attestation - Ethel Carrillo MD [...] (abstinent since admission), ASCVD with multiple prior [place] and PCIs, ICM/HFrEF LVEF 30% (all territories [...] of two midnights or is on the [facility] inpatient only procedure list (status C) due to: acute myocardial infarction requiring titration of IV medication and fluid monitoring and decompensated congestive heart failure requiring IV medication and fluid monitoring Ethel Carrillo MD Cardiovascular Medicine Personal Pager [phone] 06/12/2024 9:12 PM * Alejandra Baumann, INFORMATION SECURITY ARCHITECT - 06/11/2024 4:21 PM EST Images [...] too aggressive, suggest ICR 1:6 (rule of [id number] = 6.25). George is up and walking [...] ischemic cardiomyopathy with HFrEF (~30% EF), prior [place] with stents, DM type 2, HTN, HLD, [...] ac, metformin 1000mg BID Alejandra Baumann APRN [facility] Endocrinology Diabetes Management Pager [phone] Weekends please page [phone] 35 minutes were spent over the course [...] PCP: Mauro Berumen MD PCP phone number: [phone] Date of Admission: 06/02/2024 ( Hospital Day 9 days ) Attending:Melida Valdes MD ID: 69 y.o. male with a h/o DM type 2, HTN, HLD, current smoker (2-3 cigarettes/day), HFrEF with anICD for low EF (~30%), and CAD with prior [place] x3 with JENNA placed in [facility], presented to [facility] with 1 hour of retrosternal CP (05/13) while watching TV, found to have STEMI. Active Problems: Active Hospital Problems Diagnosis STEMI (ST elevation myocardial infarction) Cardiac resynchronization therapy defibrillator (CREATIVE ASSISTANT-D) - Medtronic Amplia Cardiomyopathy, ischemic Acute on chronic heart failure with reduced ejection fraction (HFrEF, <= 40%) Coronary artery disease involving apache coronary artery of apache heart without angina pectoris Type 2 diabetes [...] in the last 7068 hours. Invalid input(s): [id number] Recent Labs 06/11/24 0357 06/11/24 0050 06/10/24 1922 06/10/24 1735 06/10/24 1125 06/10/24 0746 06/10/24 0423 06/10/24 0005 06/09/24 2036 06/09/24 1727 06/09/24 1152 06/09/24 0810 POCGLU 132 144 236* 123 216* 206* 154 125 197 174 211* 209* Heme No results for input(s): LDH, HAPTOGLOBIN, URICACID in the last 168 hours. ABG (Arterial Blood Gas) No results found for: PHART, PO2ART, EYO7GGA, SJF3NMY Microbiology: Microbiology Results (Last 30 days) No results found for the last 720 hours. Imaging: Results for orders placed or performed during the hospital encounter of 06/02/24 XR Chest One View (Exam End: 06/03/2024 2:41 AM) Result Value WORKSTATION ID [id number] Impression No radiographically evident acute cardiopulmonary process. Thank you for letting us participate in the care of this patient. If you are a health care provider and have any questions regarding this report, please contact the number below. For patients who have questions please contact the health rn wound care that requested your imaging first. Cardiac Morphology Function wwo Contrast (Exam End: 06/07/2024 1:10 PM) Result Value WORKSTATION ID [id number] Impression - Findings consistent with an ischemic [...] - Mildly dilated left ventricle size with isphjqyy-ik-toinxmhf decreased LV systolic function. LV ejection fraction [...] have questions please contact the health rn wound care that requested your imaging first. Chest wo Contrast (Generic) (Exam End: 06/03/2024 4:33 PM) Result Value WORKSTATION ID [id number] Impression Cardiomegaly. Biventricular ICD leads in place. Thank you for letting us participate in the care of this patient. If you are a health care provider and have any questions regarding this report, please contact the number below. For patients who have questions please contact the health rn wound care that requested your imaging first. Chest PA & Lateral (Generic) (Exam End: 06/07/2024 7:03 AM) Result Value WORKSTATION ID [id number] Impression Biventricular ICD leads intact and in [...] have questions please contact the health rn wound care that requested your imaging first. : Limited echo performed by fellow fabrication department supervisor to assess LV function. Left ventricle is [...] Infusions: heparin (porcine) infusion 1,400 Units/hr (06/10/24 9578) PRN Meds:.insulin lispro, glucose 40% oral geL [...] ischemic cardiomyopathy with HFrEF (~30% EF), prior [place] with stents, DM type 2, HTN, HLD, [...] CODE Dain Colón MD Cardiology, M1-S2, Pager #[phone] 06/11/24 Associated attestation - Ethel Carrillo MD [...] (abstinent since admission), ASCVD with multiple prior [place] and PCIs, ICM/HFrEF LVEF 30% (all territories [...] of two midnights or is on the [facility] inpatient only procedure list (status C) due to: acute myocardial infarction requiring titration of IV medication and fluid monitoring and decompensated congestive heart failure requiring IV medication and fluid monitoring Ethel Carrillo MD Cardiovascular Medicine Personal Pager [phone] 06/11/2024 9:35 PM * BarbraHilary - 06/10/2024 12:39 PM EST Nutrition Services Note George Mehta is a 69 y.o. male Reason for intervention: hospital day 9 Nutrition Plan: Continue diet order: 60/60/75 CHO Level 2 Encourage good PO Lasix and Insulin noted Monitor weight Patient scheduled for a hospital day 9 nutrition evaluation. Gum Scoring Machine Operator attempted to meet with pt at bedside [...] unless consulted in the interim. Hilary Belle Set O Type Operator * Mariia Montero RN - 06/10/2024 12:23 PM EST I have met with the patient to: discuss discharge planning needs. provide the [facility] Office of Care Management letter from the Social Sciences Lecturer pertaining to rehab referrals. provide a letter describing our affiliations within the [facility] and educate about their right to choose where referrals are sent. provide a list of Home Health Agencies / Durable Medical Equipment vendors which serve their preferred geographic area. provided patient with [facility] Star Quality Rating handout. They have requested referrals to: [facility] [address] [place] [id number] RN / PT Anticipated d/c date: 06/20/24 Note routed to a Scrap Charger who will communicate referrals to facilities and provide any required information. * Dain Colón MD - 06/10/2024 7:17 AM EST Images from the original note were not included. . Cardiology Progress Note Patient info: Name: George Mehta : 1955 PCP: Mauro Berumen MD PCP phone number: [phone] Date of Admission: 06/02/2024 ( Hospital Day 8 days ) Attending:Melida Valdes MD ID: 69 y.o. male with a h/o DM type 2, HTN, HLD, current smoker (2-3 cigarettes/day), HFrEF with anICD for low EF (~30%), and CAD with prior [place] x[place] with JENNA placed in [place], Melanoma, PAD, presented to [facility] with 1 hour of retrosternal CP (05/13) while watching TV, found to have STEMI. Active Problems: Active Hospital Problems Diagnosis STEMI (ST elevation myocardial infarction) Cardiac resynchronization therapy defibrillator (CREATIVE ASSISTANT-D) - Medtronic Amplia Cardiomyopathy, ischemic Acute on chronic heart failure with reduced ejection fraction (HFrEF, <= 40%) Coronary artery disease involving apache coronary artery of apache heart without angina pectoris Type 2 diabetes [...] in the last 7068 hours. Invalid input(s): [id number] Recent Labs 06/10/24 0423 06/10/24 0005 06/09/24 2036 06/09/24 1727 06/09/24 1152 06/09/24 0810 06/09/24 0440 06/09/24 0034 06/08/24 2027 06/08/24 1616 06/08/24 1235 06/08/24 0810 POCGLU 154 125 197 174 211* 209* 131 186 176 159 226* 190 Heme No results for input(s): LDH, HAPTOGLOBIN, URICACID in the last 168 hours. ABG (Arterial Blood Gas) No results found for: PHART, PO2ART, NTN4POI, MKU0YQV Microbiology: Microbiology Results (Last 30 days) No results found for the last 720 hours. Imaging: Results for orders placed or performed during the hospital encounter of 06/02/24 XR Chest One View (Exam End: 06/03/2024 2:41 AM) Result Value WORKSTATION ID [id number] Impression No radiographically evident acute cardiopulmonary process. Thank you for letting us participate in the care of this patient. If you are a health care provider and have any questions regarding this report, please contact the number below. For patients who have questions please contact the health rn wound care that requested your imaging first. Cardiac Morphology Function wwo Contrast (Exam End: 06/07/2024 1:10 PM) Result Value WORKSTATION ID [id number] Impression - Findings consistent with an ischemic [...] - Mildly dilated left ventricle size with awpztdrp-th-hjgigzat decreased LV systolic function. LV ejection fraction [...] have questions please contact the health rn wound care that requested your imaging first. Chest wo Contrast (Generic) (Exam End: 06/03/2024 4:33 PM) Result Value WORKSTATION ID [id number] Impression Cardiomegaly. Biventricular ICD leads in place. Thank you for letting us participate in the care of this patient. If you are a health care provider and have any questions regarding this report, please contact the number below. For patients who have questions please contact the health rn wound care that requested your imaging first. Chest PA & Lateral (Generic) (Exam End: 06/07/2024 7:03 AM) Result Value WORKSTATION ID [id number] Impression Biventricular ICD leads intact and in [...] have questions please contact the health rn wound care that requested your imaging first. : Limited echo performed by fellow fabrication department supervisor to assess LV function. Left ventricle is [...] ischemic cardiomyopathy with HFrEF (~30% EF), prior [place] with stents, DM type 2, HTN, HLD, [...] CODE Dain Colón MD Cardiology, M1-S2, Pager #[phone] 06/10/24 Associated attestation - Melida Valdes MD [...] a lytic and brought directly to the Theater Manager. Cardiac catheterization demonstrated multivessel disease with [...] who is agreeable Melida Valdes MD Staff Cruise Guide * Cherelle Fregoso APRN - 06/09/2024 8:59 [...] ischemic cardiomyopathy with HFrEF (~30% EF), prior [place] with stents, DM type 2, HTN, HLD, [...] PCP: Mauro Berumen MD PCP phone number: [phone] Date of Admission: 06/02/2024 ( Hospital Day 7 days ) Attending:Melida Valdes MD ID: 69 y.o. male with a h/o DM type 2, HTN, HLD, current smoker (2-3 cigarettes/day), HFrEF with anICD for low EF (~30%), and CAD with prior [place] x[place] with JENNA placed in [place], Melanoma, PAD, presented to [facility] with 1 hour of retrosternal CP (05/13) while watching TV, found to have STEMI. Active Problems: Active Hospital Problems Diagnosis STEMI (ST elevation myocardial infarction) Acute on chronic heart failure with reduced ejection fraction (HFrEF, <= 40%) Coronary artery disease involving apache coronary artery of apache heart without angina pectoris Type 2 diabetes [...] in the last 7068 hours. Invalid input(s): [id number] Recent Labs 06/09/24 0440 06/09/24 0034 06/08/24 2027 06/08/24 1616 06/08/24 1235 06/08/24 0810 06/08/24 0409 06/07/24 2357 06/07/24 2005 06/07/24 1631 06/07/24 1105 06/07/24 1103 POCGLU 131 186 176 159 226* 190 151 188 118 174 221* 250* Heme No results for input(s): LDH, HAPTOGLOBIN, URICACID in the last 168 hours. ABG (Arterial Blood Gas) No results found for: PHART, PO2ART, MOM0JYI, QUK8TPE Microbiology: Microbiology Results (Last 30 days) No results found for the last 720 hours. Imaging: Results for orders placed or performed during the hospital encounter of 06/02/24 XR Chest One View (Exam End: 06/03/2024 2:41 AM) Result Value WORKSTATION ID [id number] Impression No radiographically evident acute cardiopulmonary process. Thank you for letting us participate in the care of this patient. If you are a health care provider and have any questions regarding this report, please contact the number below. For patients who have questions please contact the health rn wound care that requested your imaging first. Cardiac Morphology Function wwo Contrast (Exam End: 06/07/2024 1:10 PM) Result Value WORKSTATION ID [id number] Impression - Findings consistent with an ischemic [...] - Mildly dilated left ventricle size with vvjnesrj-nz-pgwaqwpd decreased LV systolic function. LV ejection fraction [...] have questions please contact the health rn wound care that requested your imaging first. Chest wo Contrast (Generic) (Exam End: 06/03/2024 4:33 PM) Result Value WORKSTATION ID [id number] Impression Cardiomegaly. Biventricular ICD leads in place. Thank you for letting us participate in the care of this patient. If you are a health care provider and have any questions regarding this report, please contact the number below. For patients who have questions please contact the health rn wound care that requested your imaging first. Chest PA & Lateral (Generic) (Exam End: 06/07/2024 7:03 AM) Result Value WORKSTATION ID [id number] Impression Biventricular ICD leads intact and in [...] have questions please contact the health rn wound care that requested your imaging first. : Limited echo performed by fellow fabrication department supervisor to assess LV function. Left ventricle is [...] Infusions: heparin (porcine) infusion 1,400 Units/hr (06/08/24 5084) PRN Meds:.glucose 40% oral geL OR dextrose [...] ischemic cardiomyopathy with HFrEF (~30% EF), prior [place] with stents, DM type 2, HTN, HLD, [...] CODE Dain Colón MD Cardiology, M1-S2, Pager #[phone] 06/09/24 Associated attestation - Melida Valdes MD [...] a lytic and brought directly to the Theater Manager. Cardiac catheterization demonstrated multivessel disease with [...] insertion low EF. Melida Valdes MD Staff Cruise Guide * Alejandra Baumann, INFORMATION SECURITY ARCHITECT - 06/08/2024 4:10 PM EST Images [...] ischemic cardiomyopathy with HFrEF (~30% EF), prior [place] with stents, DM type 2, HTN, HLD, [...] to optimize glucose control Alejandra Baumann APRN [facility] Endocrinology Diabetes Management Pager [phone] Weekends please page [phone] 35 minutes were spent over the course [...] PCP: Mauro Berumen MD PCP phone number: [phone] Date of Admission: 06/02/2024 ( Hospital Day 6 days ) Attending:Melida Valdes MD ID: 69 y.o. male with a h/o DM type 2, HTN, HLD, current smoker (2-3 cigarettes/day), HFrEF with anICD for low EF (~30%), and CAD with prior [place] x[place] with JENNA placed in [place], Melanoma, PAD, presented to [facility] with 1 hour of retrosternal CP (05/13) while watching TV, found to have STEMI. Active Problems: Active Hospital Problems Diagnosis STEMI (ST elevation myocardial infarction) Acute on chronic heart failure with reduced ejection fraction (HFrEF, <= 40%) Coronary artery disease involving apache coronary artery of apache heart without angina pectoris Type 2 diabetes [...] in the last 7068 hours. Invalid input(s): [id number] Recent Labs 06/08/24 0409 06/07/24 2357 06/07/24200406/07/24 1631 06/07/24 1105 06/07/24 1103 06/07/24 0745 06/07/24 0425 06/07/24 0008 06/06/24 2018 06/06/24 1539 06/06/24 1339 POCGLU 151 188 118 174 221* 250* 175 127 182 143 147 317* Heme No results for input(s): LDH, HAPTOGLOBIN, URICACID in the last 168 hours. ABG (Arterial Blood Gas) No results found for: PHART, PO2ART, WYA4EAZ, DWY3AMC Microbiology: Microbiology Results (Last 30 days) No results found for the last 720 hours. Imaging: Results for orders placed or performed during the hospital encounter of 06/02/24 XR Chest One View (Exam End: 06/03/2024 2:41 AM) Result Value WORKSTATION ID [id number] Impression No radiographically evident acute cardiopulmonary process. Thank you for letting us participate in the care of this patient. If you are a health care provider and have any questions regarding this report, please contact the number below. For patients who have questions please contact the health rn wound care that requested your imaging first. Cardiac Morphology Function wwo Contrast (Exam End: 06/07/2024 1:10 PM) Result Value WORKSTATION ID [id number] Impression - Findings consistent with an ischemic [...] - Mildly dilated left ventricle size with srffugod-ds-xuiabzck decreased LV systolic function. LV ejection fraction [...] have questions please contact the health rn wound care that requested your imaging first. Chest wo Contrast (Generic) (Exam End: 06/03/2024 4:33 PM) Result Value WORKSTATION ID [id number] Impression Cardiomegaly. Biventricular ICD leads in place. Thank you for letting us participate in the care of this patient. If you are a health care provider and have any questions regarding this report, please contact the number below. For patients who have questions please contact the health rn wound care that requested your imaging first. Chest PA & Lateral (Generic) (Exam End: 06/07/2024 7:03 AM) Result Value WORKSTATION ID [id number] Impression Biventricular ICD leads intact and in [...] have questions please contact the health rn wound care that requested your imaging first. : Limited echo performed by fellow fabrication department supervisor to assess LV function. Left ventricle is [...] Infusions: heparin (porcine) infusion 1,400 Units/hr (06/08/24 0419) PRN Meds:.insulin lispro, potassium chloride ER OR [...] ischemic cardiomyopathy with HFrEF (~30% EF), prior [place] with stents, DM type 2, HTN, HLD, [...] CODE Dain Colón MD Cardiology, M1-S2, Pager #[phone] 06/08/24 Associated attestation - Melida Valdes MD [...] a lytic and brought directly to the Theater Manager. Cardiac catheterization demonstrated multivessel disease with [...] Otherwise clinically stable Melida Valdes MD Staff Cruise Guide * Ross Manuel PA - 06/07/2024 12:00 PM EST Cardiac Electrophysiology CIED Interrogation/Programming Note Asked by MRI staff to evaluate and program Medtronic CREATIVE ASSISTANT-D to allow for MR imaging. Patient Active Problem List Diagnosis ','STEMI (ST elevation myocardial infarction) Acute on chronic heart failure with reduced ejection fraction (HFrEF, <= 40%) Coronary artery disease involving apache coronary artery of apache heart without angina pectoris Type 2 diabetes mellitus Device Data: [employer] MRI Quad CREATIVE ASSISTANT-D [id number] #[id number] 06/16/2019 RA Medtronic 4076 CapSureFix Novus [id number] 06/16/2019 RV Medtronic [id number] 06/16/2019 LV Medtronic 4298 Attain Performa MRI [id number] 06/16/2019 DDD @ 50/130/130 Adaptive Bi-V and LV VF >188bpm ATP, 35j x6 FVT >188-222bpm burst 2, 35jx5 VT Battery longevity: 2.5yrs; charge time 4s P wave: 2.3mV R wave: >20.0mV Atrial impedance: 458 ohms RV impedance: 646 ohms LV impedance: 722 ohms Atrial threshold: 0.5V @ 0.4ms RV threshold: LV threshold: 1.75V @ 0.4ms AP 0.2% WELDER PLASMA ARC 97.7% AT/AF 0% Impression and Plan: 1. Interrogated device to determine suitability for MRI 2. Programmed to MRI safe mode - VOO @ 70 3. Scan performed 4. Programming restored to baseline settings 5. Reinterrogated to verify appropriate function and settings 6. Device follow up as previously scheduled Provider: HENOK Meyer EP Consult attending physician: Libby Barton MD EP Consult positional pager #[phone](EPMD) EP Device interrogation positional pager # [phone] * Dain Colón MD - 06/07/2024 7:09 AM EST Images from the original note were not included. . Cardiology Progress Note Patient info: Name: George Mehta : 1955 PCP: Mauro Berumen MD PCP phone number: [phone] Date of Admission: 06/02/2024 ( Hospital Day 5 days ) Attending:Melida Valdes MD ID: 69 y.o. male with a h/o DM type 2, HTN, HLD, current smoker (2-3 cigarettes/day), HFrEF with anICD for low EF (~30%), and CAD with prior [place] x[place] with JENNA placed in [place], Melanoma, PAD, presented to [facility] with 1 hour of retrosternal CP (05/13) while watching TV, found to have STEMI. Active Problems: Active Hospital Problems Diagnosis STEMI (ST elevation myocardial infarction) Acute on chronic heart failure with reduced ejection fraction (HFrEF, <= 40%) Coronary artery disease involving apache coronary artery of apache heart without angina pectoris Type 2 diabetes [...] in the last 7068 hours. Invalid input(s): [id number] Recent Labs 06/07/24 0425 06/07/24 0008 06/06/24 2018 06/06/24 1539 06/06/24 1339 06/06/24 1134 06/06/24 0757 06/06/24 0653 06/05/24 2231 06/05/24 1622 06/05/24 1134 06/05/24 0727 POCGLU 127 182 143 147 317* 264* 195 187 238* 205* 211* 166 Heme No results for input(s): LDH, HAPTOGLOBIN, URICACID in the last 168 hours. ABG (Arterial Blood Gas) No results found for: PHART, PO2ART, UKN6DYA, YQA3ELK Microbiology: Microbiology Results (Last 30 days) No results found for the last 720 hours. Imaging: Results for orders placed or performed during the hospital encounter of 06/02/24 XR Chest One View (Exam End: 06/03/2024 2:41 AM) Result Value WORKSTATION ID [id number] Impression No radiographically evident acute cardiopulmonary process. Thank you for letting us participate in the care of this patient. If you are a health care provider and have any questions regarding this report, please contact the number below. For patients who have questions please contact the health rn wound care that requested your imaging first. Chest wo Contrast (Generic) (Exam End: 06/03/2024 4:33 PM) Result Value WORKSTATION ID [id number] Impression Cardiomegaly. Biventricular ICD leads in place. Thank you for letting us participate in the care of this patient. If you are a health care provider and have any questions regarding this report, please contact the number below. For patients who have questions please contact the health rn wound care that requested your imaging first. : Limited echo performed by fellow fabrication department supervisor to assess LV function. Left ventricle is [...] Infusions: heparin (porcine) infusion 1,400 Units/hr (06/06/24 1290) PRN Meds:.insulin lispro, potassium chloride ER OR [...] ischemic cardiomyopathy with HFrEF (~30% EF), prior [place] with st[place], DM type 2, HTN, HLD, [...] Dain Colón MD (PGY-1) Cardiology, M1-S2, Pager #[phone] 06/07/24 Associated attestation - Melida Valdes MD [...] a lytic and brought directly to the Theater Manager. Cardiac catheterization demonstrated multivessel disease with [...] for further guidance. Melida Valdes MD Staff Cruise Guide * Dain Colón MD - 06/06/2024 7:17 AM EST Images from the original note were not included. . Cardiology Progress Note Patient info: Name: George Mehta : 1955 PCP: Mauro Berumen MD PCP phone number: [phone] Date of Admission: 06/02/2024 ( Hospital Day 4 days ) Attending:Melida Valdes MD ID: 69 y.o. male with a h/o DM type 2, HTN, HLD, current smoker (2-3 cigarettes/day), HFrEF with anICD for low EF (~30%), and CAD with prior [place] with JENNA placed in [place], Melanoma, PAD, presented to [facility] with 1 hour of retrosternal CP (05/13) while watching TV, found to have STEMI. Active Problems: Active Hospital Problems Diagnosis STEMI (ST elevation myocardial infarction) Acute on chronic heart failure with reduced ejection fraction (HFrEF, <= 40%) Coronary artery disease involving apache coronary artery of apache heart without angina pectoris Type 2 diabetes [...] in the last 7068 hours. Invalid input(s): [id number] Recent Labs 06/06/24 0653 06/05/24 2231 06/05/24 1622 06/05/24 1134 06/05/24 0727 06/04/24 1943 06/04/24 1526 06/04/24 1109 06/04/24 0711 06/03/24 2005 06/03/24 1748 06/03/24 1114 POCGLU 187 238* 205* 211* 166 175 154 188 182 136 191 166 Heme No results for input(s): LDH, HAPTOGLOBIN, URICACID in the last 168 hours. ABG (Arterial Blood Gas) No results found for: PHART, PO2ART, NMN7PYT, VCV6IVR Microbiology: Microbiology Results (Last 30 days) No results found for the last 720 hours. Imaging: Results for orders placed or performed during the hospital encounter of 06/02/24 XR Chest One View (Exam End: 06/03/2024 2:41 AM) Result Value WORKSTATION ID [id number] Impression No radiographically evident acute cardiopulmonary process. Thank you for letting us participate in the care of this patient. If you are a health care provider and have any questions regarding this report, please contact the number below. For patients who have questions please contact the health rn wound care that requested your imaging first. Chest wo Contrast (Generic) (Exam End: 06/03/2024 4:33 PM) Result Value WORKSTATION ID [id number] Impression Cardiomegaly. Biventricular ICD leads in place. Thank you for letting us participate in the care of this patient. If you are a health care provider and have any questions regarding this report, please contact the number below. For patients who have questions please contact the health rn wound care that requested your imaging first. : Limited echo performed by fellow fabrication department supervisor to assess LV function. Left ventricle is [...] ischemic cardiomyopathy with HFrEF (~30% EF), prior [place] with stents, DM type 2, HTN, HLD, [...] Dain Colón MD (PGY-1) Cardiology, M1-S2, Pager #[phone] 06/06/24 Associated attestation - Melida Valdes MD [...] a lytic and brought directly to the Theater Manager. Cardiac catheterization demonstrated multivessel disease with [...] management. Help appreciated Melida Valdes MD Staff Cruise Guide * Frederick Dunn MD - 06/05/2024 8:13 AM EDT Images from the original note were not included. . Cardiology Progress Note Patient info: Name: George Mehta : 1955 PCP: Mauro Berumen MD PCP phone number: [phone] Date of Admission: 06/02/2024 ( Hospital Day 3 days ) Attending:Melida Valdes MD ID: 69 y.o. male with a h/o DM type 2, HTN, HLD, current smoker (2-3 cigarettes/day), HFrEF with anICD for low EF (~30%), and CAD with prior [place] x3 with JENNA placed in [place], Melanoma, PAD, presented to [facility] with 1 hour of retrosternal CP (05/13) [...] in the last 7068 hours. Invalid input(s): [id number] Recent Labs 06/05/24 1134 06/05/24 0727 06/04/24 1943 06/04/24 1526 06/04/24 1109 06/04/24 0711 06/03/24 2005 06/03/24 1748 06/03/24 1114 06/03/24 0754 06/02/24 2331 POCGLU 211* 166 175 154 188 182 136 191 166 195 156 Heme No results for input(s): LDH, HAPTOGLOBIN, URICACID in the last 168 hours. ABG (Arterial Blood Gas) No results found for: PHART, PO2ART, ZEK8VPE, BQE3LTD Microbiology: Microbiology Results (Last 30 days) No results found for the last 720 hours. Imaging: Results for orders placed or performed during the hospital encounter of 06/02/24 XR Chest One View (Exam End: 06/03/2024 2:41 AM) Result Value WORKSTATION ID [id number] Impression No radiographically evident acute cardiopulmonary process. Thank you for letting us participate in the care of this patient. If you are a health care provider and have any questions regarding this report, please contact the number below. For patients who have questions please contact the health rn wound care that requested your imaging first. Chest wo Contrast (Generic) (Exam End: 06/03/2024 4:33 PM) Result Value WORKSTATION ID [id number] Impression Cardiomegaly. Biventricular ICD leads in place. Thank you for letting us participate in the care of this patient. If you are a health care provider and have any questions regarding this report, please contact the number below. For patients who have questions please contact the health rn wound care that requested your imaging first. : Limited echo performed by fellow fabrication department supervisor to assess LV function. Left ventricle is [...] ischemic cardiomyopathy with HFrEF (~30% EF), prior [place] with stents, DM type 2, HTN, HLD, [...] all the information they need regarding the CREATIVE ASSISTANT-D.Plan for MRI tomorrow. Starting 40 mg IV [...] a lytic and brought directly to the Theater Manager. Cardiac catheterization demonstrated multivessel disease with [...] maintenance of 40. Melida Valdes MD Staff Cruise Guide * Migel Javier RN - 06/05/2024 6:21 AM EDT Implanted device record scanned into: Chart Review-->Media-->External Cardiology-->03/25/2024. Medtronic Amplia MRI Quad CRTD [id number] Serial #: [id number] DDD mode A + Bi/V Rates 50-130 Migel Javier RN * Dain Colón MD - 06/04/2024 11:16 AM EDT Implant Records Requested Type: CREATIVE ASSISTANT-D Cable Television Program Director: [employer]tr[employer] Product: [id number] Amplia MRI MRI compatibility: Compatible for 1.5-3 T Model #: [id number] Placed at: [place], [place] Records requested for MRI: 1. Operative report 2. Implant log I requested that these records be sent to our MRI department, Dain Colón MD 06/04/24 11:58 AM * Dain Colón MD - 06/04/2024 6:57 AM EDT Images from the original note were not included. . Cardiology Progress Note Patient info: Name: George Mehta : 1955 PCP: Mauro Berumen MD PCP phone number: [phone] Date of Admission: 06/02/2024 ( Hospital Day 2 days ) Attending:Delroy Fofana MD ID: 69 y.o. male with a h/o DM type 2, HTN, HLD, current smoker (2-3 cigarettes/day), HFrEF with anICD for low EF (~30%), and CAD with prior [place] x3 with JENNA placed in [place], Melanoma, PAD, presented to [facility] with 1 hour of retrosternal CP (05/13) [...] in the last 7068 hours. Invalid input(s): [id number] Recent Labs 06/03/24 2005 06/03/24 1748 06/03/24 1114 06/03/24 0754 06/02/24 2331 POCGLU 136 191 166 195 156 Heme No results for input(s): LDH, HAPTOGLOBIN, URICACID in the last 168 hours. ABG (Arterial Blood Gas) No results found for: PHART, PO2ART, XEU7RWA, TXG9GXT Microbiology: Microbiology Results (Last 30 days) No results found for the last 720 hours. Imaging: Results for orders placed or performed during the hospital encounter of 06/02/24 XR Chest One View (Exam End: 06/03/2024 2:41 AM) Result Value WORKSTATION ID [id number] Impression No radiographically evident acute cardiopulmonary process. Thank you for letting us participate in the care of this patient. If you are a health care provider and have any questions regarding this report, please contact the number below. For patients who have questions please contact the health rn wound care that requested your imaging first. Chest wo Contrast (Generic) (Exam End: 06/03/2024 4:33 PM) Result Value WORKSTATION ID [id number] Impression Cardiomegaly. Biventricular ICD leads in place. Thank you for letting us participate in the care of this patient. If you are a health care provider and have any questions regarding this report, please contact the number below. For patients who have questions please contact the health rn wound care that requested your imaging first. : Limited echo performed by fellow fabrication department supervisor to assess LV function. Left ventricle is [...] ischemic cardiomyopathy with HFrEF (~30% EF), prior [place] with stents, DM type 2, HTN, HLD, [...] 40 mg IV given in the laborer hide house; assess diuretic response, consider re-dosing -Continue carvedilol; [...] a lytic and brought directly to the Theater Manager. Cardiac catheterization demonstrated multivessel disease with [...] Friday -Diuresis with Jovanni Valdes MD Staff Cruise Guide * Fatmata Mcallister PT - 06/03/2024 3:29 [...] vs PCI) Fatmata Mcallister PT, MSPT Pager [phone] Inpatient Physical Therapy * Marlin Gómez MD [...] Marlin Gómez MD Cardiology S2, Pager # [phone] 06/03/2024 * Delroy Fofana MD - 06/03/2024 7:16 AM EDT Images from the original note were not included. . Cardiology Progress Note Patient info: Name: George Mehta : 1955 PCP: Mauro Berumen MD PCP phone number: [phone] Date of Admission: 06/02/2024 ( Hospital Day 1 day ) Attending:Nuha Rojo MD ID: 69 y.o. male with a h/o DM type 2, HTN, HLD, current smoker (2-3 cigarettes/day), HFrEF with anICD for low EF (~30%), and CAD with prior [place] x3 with JENNA placed in [place], Melanoma, PAD, presented to [facility] with 1 hour of retrosternal CP (05/13) [...] in the last 7068 hours. Invalid input(s): EUHIMVTYXTH7R Recent Labs 06/02/24 2331 POCGLU 156 Heme No results for input(s): LDH, HAPTOGLOBIN, URICACID in the last 168 hours. ABG (Arterial Blood Gas) No results found for: PHART, PO2ART, RYL7XHM, QWB3PXR Microbiology: Microbiology Results (Last 30 days) No results found for the last 720 hours. Imaging: Results for orders placed or performed during the hospital encounter of 06/02/24 XR Chest One View (Exam End: 06/03/2024 2:41 AM) Result Value WORKSTATION ID [id number] Impression No radiographically evident acute cardiopulmonary process. Thank you for letting us participate in the care of this patient. If you are a health care provider and have any questions regarding this report, please contact the number below. For patients who have questions please contact the health rn wound care that requested your imaging first. : Limited echo performed by fellow fabrication department supervisor to assess LV function. Left ventricle is [...] ischemic cardiomyopathy with HFrEF (~30% EF), prior [place] with stents, DM type 2, HTN, HLD, [...] 40 mg IV given in the laborer hide house; assess diuretic response, consider re-dosing -Continue carvedilol; [...] of care per Dain Colón MD (medical administrative assistant). Please refer to his note above for details. Very pleasant 69 year old male but he is obese, diabetic, and he is a SMOKER with known prior CAD and moderately reduced LVEF (30%). He has a pacer. History of surgical resection of melanoma on his head. The patient was [place] [facility] [place]. He was treated initially with a lytic (TNK) and brought directly to the laborer hide house. The cath demonstrated 3VD with diffuse disease and extensive calcification of his arteries. Anatomy was not considered favorable for PCI. Consideration of CABGwas recommended. EDP noted to be 40. Initial ECG: NSR with borderline NAEDR in anterior leads (possible v-pacing) Labs: -hgb [...] - 06/13/2024 10:58 AM EST ICU Blue (#[id number]) H&P Patient info: Name: George Mehta : 1955 PCP: Mauro Berumen MD PCP phone number: [phone] Date of Admission: 06/02/2024 ( Hospital Day 11 days ) Attending:Haja Byrnes MD ID: George Mehta is a 69 y.o. male with a h/o DM type 2, HTN, HLD, current smoker (2-3 cigarettes/day), HFrEF with an ICD for low EF (~30%), and CAD with prior [place] x3 with JENNA placed in [place], Melanoma, PAD, presented to [facility] with 1 hour of retrosternal CP (05/13) while watching TV, foundto have STEMI. HPI: Shahnaz Scanlon H&P 06/02 69 y.o. male with a h/o DM type 2, HTN, HLD, current smoker (2-3 cigarettes/day), HFrEF with an ICD for low EF (~30%), and CAD with prior [place] x3 with JENNA placed in [place], Melanoma, PAD, presented to [facility] with 1 hour of retrosternal CP (05/13) while watching TV. CP was non-radiating, not asso ciated with diaphoresis, nausea, or SOB. Denies orthopnea, MARTÍNEZ, palpitations, or LE edema. ECG showed findings consistent with anterior STEMI. He received TNK and was transferred for PCI. Coronary angiography showed a small, non-dominant RCA with znhz-ye-kwhoqjyy disease and a dominant,heavily calcified left system with prior stents in the LAD and OM. The LM bifurcates into the LAD and LCX, both heavily calcified. The proximal LCX has a 75% calcified, aneurysmal lesion, and an 80% calcified lesion distally before a large OM2. OM1 is a PERIODICALS LIBRARY ASSISTANT with in-stent restenosis, filling retrograde via collaterals. [...] mg Lasix was administered in the laborer hide house. Cardiac surgery was consulted and plan for [...] Blood Gas) No results for input(s): PHART, MME6TUR, PO2ART, XBR9WCV, LACTATEVEN, PHA8OOD, PFRATIOART2 in the last 168 hours. VBG (Venous Blood Gas) Recent Labs 06/10/24 1742 PHVEN 7.34 PO2VEN 24 INZ4KWL 27.4 Mixed Venous Sat No results for input(s): A2XCWU7 in the last 168 hours. Intake/Output Summary [...] in the last 7068 hours. Invalid input(s): IZEYAWPLYMN6F Recent Labs 06/13/24 0741 06/13/24 0325 06/12/24 2353 06/12/24 1932 06/12/24 1541 06/12/24 1121 06/12/24 0800 06/12/24 0425 06/11/24 2356 06/11/24 2025 06/11/24 1624 06/11/24 1108 POCGLU 126 99 141 158 113 207* 169 132 135 210* 81 233* Heme No results for input(s): LDH, HAPTOGLOBIN, URICACID in the last 168 hours. ABG (Arterial Blood Gas) No results for input(s): PHART, KZX9LLF, PO2ART, WWO4WCH, LACTATEVEN, DUH0QZE, PFRATIOART2 in the last 168 hours. VBG (Venous Blood Gas) Recent Labs 06/10/24 1742 PHVEN 7.34 PO2VEN 24 ZJV0GRC 27.4 Mixed Venous Sat No results for input(s): E9YORQ2 in the last 168 hours. Microbiology: Microbiology Results (Last 30 days) No results found for the last 720 hours. Assessment & Plan: George Mehta is a 69 y.o. male with CAD, ischemic cardiomyopathy with HFrEF (~30% EF), prior [place] with stents, DM type 2, HTN, HLD, [...] Plan for CABG 06/14. Patient NPO at [place]. #ASCVD / STEMI: -Holding Plavix; continue ASA [...] (Give Meds) Daily Healthy Menu Choices/Cardiac diet ([facility] DVT Prophylaxis: SCD GI [...] TUD (abstinent since admission), ASCVD with multipleprior [place] and PCIs, ICM/HFrEF LVEF 30% (all territories [...] is in the chart Rebeca Prado MD Job Hand PGY6 [id number] * Shahnaz Scanlon MD - [...] low EF (~30%), and CAD with prior [place] x3 with JENNA placed in [facility], presented to [facility] with 1 hour of retrosternal CP (05/13) while watching TV. CP was non-radiating, not assoc iated with diaphoresis, nausea, or SOB. Denies orthopnea, MARTÍNEZ, palpitations, or LE edema. ECG showed findings consistent with anterior STEMI. He received TNK and was transferred for PCI. Coronary angiography showed a small, non-dominant RCA with egzo-mt-fncuezgp disease and a dominant,heavily calcified left system with prior stents in the LAD and OM. The LM bifurcates into the LAD and LCX, both heavily calcified. The proximal LCX has a 75% calcified, aneurysmal lesion, and an 80% calcified lesion distally before a large OM2. OM1 is a PERIODICALS LIBRARY ASSISTANT with in-stent restenosis, filling retrograde via collaterals. [...] mg Lasix was administered in the laborer hide house. Past Medical History: As per HPI Significant [...] Affect: Mood normal. Behavior: Behavior normal. Diagnostics: [facility] 06/02/2024 Coronary angiography revealed small non [...] ischemic cardiomyopathy with HFrEF (~30% EF), prior [place] with stents, DM type 2, HTN, HLD, [...] 40 mg IV given in the laborer hide house; assess diuretic response. -Continue carvedilol; hold Entresto [...] & Follow-up Care: Contact information for follow-up [facility] [address] [address] Cardiac Rehab, [address] [address] JAMIE GRAMAJO confirmed with [facility] that they [...] Roberts RN - 06/18/2024 10:50 AM EST [facility] George Mehta was seen today regarding participation in the outpatient Phase 2 Cardiac Rehabilitation at [facility]. The patient agrees to a referral to [...] Payor: AARP MANAGED MEDICARE / Plan: AARP [facility] MANAGED MEDICARE COMPLETE / Product Type: [...] pending clinical course and PT/OT recs [facility] [address] [facility] [address] PHONE: [phone] FAX: [phone] Transportation: family or friend will provide Barriers [...] recs Patient is insured through: Primary Insurance: [facility] [employer] MEDICARE Payor: [facility] [employer] MEDICARE / Plan: [facility] MANAGED MEDICARE COMPLETE / Product Type: *No Product type* / Secondary Insurance: N/A Plan for discharge is: Home w/ Services Outpatient Agency/Support Group Needs: Homecare agency Agency Choices: [facility]: Medication checks, Registered Nurse, Physical Therapy Agency Referrals: pending clinical course and PT/OT recs [facility] [address] [place] [address] PHONE: [phone] FAX: [phone] Transportation: family or friend will provide Barriers [...] Loja MD - 06/14/2024 8:48 AM EST [facility] Operative Note Patient Name: George Mehta : [id number] MR#: [id number] Case Date: 06/14/2024 Surgeon: Surgeons and Role: * Bobby Loja MD - Primary * Rashi Bass PA - Physician Calker Preoperative diagnosis: CAD, MARIALUISA flickering mass on [...] all belongings with patient. 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 INDIVIDUALIZED FALL [...] No Patient is insured through: Primary Insurance: [facility] MANAGED MEDICARE Payor: [facility] MANAGED MEDICARE / Plan: AARP [employer] MANAGED MEDICARE COMPLETE / Product Type: *No Product type* / Secondary Insurance: N/A Plan for discharge is: Home w/ Services Outpatient Agency/Support Group Needs: Homecare agency, Agency Choices: [facility] Home Health Services: Medication checks, Registered Nurse, Physical Therapy Agency Referrals: [facility] [address] [place] [address] RN / PT Routed 06/10 Transportation: family [...] with home health services when medically ready. look out tower fire watcher/Chief Of Field Operations will continue to follow patient???s progress and remain available if situation changes for coordination of care, psychosocial support and/or discharge planning. Anticipated Date of Discharge: 06/18/2024 Mariia Montero RN CM Extension [phone] * Plan of Care - Migel Javier [...] No Patient is insured through: Primary Insurance: [employer] MEDICARE Payor: [employer] MEDICARE / Plan: [facility] [employer] MEDICARE COMPLETE / Product Type: *No Product [...] consult for high risk PCI vs CABG look out tower fire watcher/Chief Of Field Operations will continue to follow patient???s progress and remain available if situation changes for coordination of care, psychosocial support and/or discharge planning. Anticipated Date of Discharge: 06/11/2024 Mariia Montero RN Extension [phone] * Plan of Care - Becca Hoep RN - 06/08/2024 7:40 AM EST OUTCOME [...] ischemic cardiomyopathy with HFrEF (~30% EF), prior [place] with stents, DM type 2, HTN, HLD, [...] Breakfast- varies - eggs with khoury or armenian muffin Lunch- turkey sandwich Supper- meat and [...] Infusions: heparin (porcine) infusion 1,400 Units/hr (06/06/24 9458) PRN: insulin lispro, potassium chloride ER OR [...] ischemic cardiomyopathy with HFrEF (~30% EF), prior [place] with stents, DM type 2, HTN, HLD, [...] Baumann APRN Endocrinology Diabetes Management Service Pager: [phone] Weekends please page [phone] 80 minute visit was spent in counseling [...] y.o. male with a PMHx of previous [place] s/p PCI x3, ICM/HFrEF (LVEF 30%) s/p ICD, DMII, HTN, HLD, remote melanoma, and smoker who presented to [facility] last night via EMS after developing acute, severe chest pain while watching TV. Patient was ruled in for STEMI, given TNK, ASA, plavix, heparin gtt, and sent to [facility] [place] angiography. LHC demonstrated severely calcified left coronary system with notable LCx 75/80% lesions and PERIODICALS LIBRARY ASSISTANT OM1 with ISR with collateral retrograde filling, [...] elevation myocardial infarction) Past Medical History: previous [place] s/p PCI x3 ICM/HFrEF (LVEF 30%) s/p [...] is large. OM1 appears to be a PERIODICALS LIBRARY ASSISTANT, with in stentrestenosis and fills retrograde via [...] y.o. male admitted with STEMI s/p TNK, [facility] showing multivessel CAD including ISR, no [...] to our service. Signed: Paula Treviño PA-C [facility] Section of Cardiac Surgery Date: 06/03/2024 * Initial Assessments - Natalie, Catina A, ASSISTANT GENERAL MANAGER - 06/03/2024 10:32 AM EDT Office of [...] 180 days) Any patient receiving care in [place] must abide by [place] law. The hierarchy [...] (i) The agent with financial power of united states attorney or a conservator appointed in accordance [...] homeless or living in a usp (including now)?: No In the past 12 months has the electric, gas, oil, or water BridgeXs threatened to shut off services in your [...] the bathroom) Home Address confirmed as: [address] [place] [address] [address] [facility] [address] Social & Family Supports: All names listed [...] Pertinent/Service Specific Information: Health/Prescription Coverage: Primary Insurance: [facility] [employer] MEDICARE Payor: [facility] MANAGED MEDICARE / Plan: [facility] MANAGED MEDICARE COMPLETE / Product Type: *No Product type* / Secondary Insurance: N/A ; Prescription Coverage: Yes Preferred Pharmacy: [id number] - [place], [place] - [address] [facility] [address] [place] [id number] [address] Status: Patient is a : No Primary Care Provider confirmed: Mauro Berumen MD [phone] Patient/Caregiver Goals of Treatment: Potential Needs for [...] care as indicated. [facility], [phone]. [phone] * Brief Op Note - Angeles Gaxiola PA - 06/03/2024 12:23 AM EDT Preliminary Cardiac Catheterization Procedure Note: Patient Name: George Mehta : [id number] MR#: [id number] Case Date: 06/02/2024 - 06/03/2024 Clinical Applications Manager: Surgeons and Role: * Nuha Shen MD - Primary * Angeles Gaxiola PA - Physician Calker Preoperative diagnosis: STEMI Postoperative diagnosis: * STEMI * Procedure(s) performed: RRA access [facility] Coronary angiogram IVUS LM/LAD/LCX Access: 6 Fr RRA A time-out was conducted prior to the start of the procedure to verify the correct patient and procedure, procedure location, and all relevant critical information. Preliminary findings: 69 year old current smoker (1-2 cigarette's per day), DM type 2, hypertension, dyslipidemia, ICD for HFrEF/low EF (~30%), CAD with prior [place] and 3 stents historically (in [place]) who presented to [facility] with 1 hour of rest chest pain [...] is large. OM1 appears to be a PERIODICALS LIBRARY ASSISTANT, with in stentrestenosis and fills retrograde via [...] 40 mg of lasix in the laborer hide house. 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 Glucometer, POC 142 65 - 199 mg/dL 06/21/2024 3:51 AM EST [facility] Comment:Supplemental ranges: <140 mg/dL before meals <180 mg/dL all other times of the day. Blood CAPILLARY BLOOD / Unknown 06/21/2024 3:51 AM EST 06/21/2024 3:51 AM EST Bobby Loja MD POINT OF CARE TEST O RDERABLES [facility] [place] [address] * (ABNORMAL) Basic Metabolic Panel (06/21/2024 2:09 AM EST) Glucose 169 65 - 199 mg/dL 06/21/2024 3:10 AM EST [facility] Comment:Glucose Concentratio n >=200 mg/dL plus symptoms is consistent with Diabetes Mellitus. Blood Urea Nitrogen 27(H) 10 - 20 mg/dL 06/21/2024 3:10 AM EST [facility] Creatinine 1.24 0.80 - [...] APRN CHEMISTRY ORDERABL ES Performing Organization Address [facility] Co de Phone Number [facility] [place] [address] * POC, GLUCOSE (06/21/2024 12:04 AM EST) Glucometer, POC 157 65 - 199 mg/dL 06/21/2024 12:04 AM EST [facility] Comment:Supplemental ranges: <140 mg/dL before meals <180 mg/dL all other times of the day. Blood CAPILLARY BLOOD / Unknown 06/21/2024 12:04 AM EST 06/21/2024 12:04 AM EST Bobby Loja MD POINT OF CARE TEST O RDERABLES [facility] [place] [address] * POC, GLUCOSE (06/20/2024 11:14 PM EST) Glucometer, POC 67 65 - 199 mg/dL 06/20/2024 11:14 PM EST [facility] Comment:Supplemental ranges: <140 mg/dL before meals <180 mg/dL all other times of the day. Blood CAPILLARY BLOOD / Unknown 06/20/2024 11:14 PM EST 06/20/2024 11:14 PM EST Bobby Loja MD POINT OF CARE TEST O NIKA Performing Organization Address [facility] Co de Phone Number [facility] [place] [address] * POC, GLUCOSE (06/20/2024 7:16 PM EST) Glucometer, POC 132 65 - 199 mg/dL 06/20/2024 7:16 PM EST [facility] Comment:Supplemental ranges: <140 mg/dL before meals <180 mg/dL all other times of the day. Blood CAPILLARY BLOOD / Unknown 06/20/2024 7:16 PM EST 06/20/2024 7:16 PM EST Bobby Loja MD POINT OF CARE TEST Abimael MAHER Performing Organization Address [facility] Co de Phone Number [facility] [place] [address] * POC, GLUCOSE (06/20/2024 3:39 PM EST) Glucometer, POC 124 65 - 199 mg/dL 06/20/2024 3:40 PM EST [facility] Comment:Supplemental ranges: <140 mg/dL before meals <180 mg/dL all other times of the day. Blood CAPILLARY BLOOD / Unknown 06/20/2024 3:39 PM EST 06/20/2024 3:40 PM EST Bobby Loja MD POINT OF CARE TEST O NIKA Performing Organization Address [facility] Co de Phone Number [facility] [place] [address] * POC, GLUCOSE (06/20/2024 12:02 PM EST) Glucometer, POC 173 65 - 199 mg/dL 06/20/2024 12:03 PM EST [facility] Comment:Supplemental ranges: <140 mg/dL before meals <180 mg/dL all other times of the day. Blood CAPILLARY BLOOD / Unknown 06/20/2024 12:02 PM EST 06/20/2024 12:03 PM EST Narrative Authorizing Provider Result Saranya Loja MD POINT OF CARE TEST O NIKA Performing Organization Address [facility] Co de Phone Number [facility] [place] [address] * POC, GLUCOSE (06/20/2024 7:10 AM EST) Glucometer, POC 130 65 - 199 mg/dL 06/20/2024 7:11 AM EST [facility] Comment:Supplemental ranges: <140 mg/dL before meals <180 mg/dL all other times of the day. Blood CAPILLARY BLOOD / Unknown 06/20/2024 7:10 AM EST 06/20/2024 7:11 AM EST Narrative Authorizing Provider Result Saranya Loja MD POINT OF CARE TEST Abimael MAHER Performing Organization Address [facility] Co de Phone Number [facility] [place] [address] * (ABNORMAL) Basic Metabolic Panel (06/20/2024 2:28 [...] - 107 mMol/L 06/20/2024 3:06 AM EST [facility] Carbon Dioxide 29 22 [...] mL/min/1. 73 m?? 06/20/2024 3:06 AM EST [facility] Comment: This patient's estimated [...] EST Keila Hanley APRN CHEMISTRY ORDERABL ES [facility] [place] [address] * POC, GLUCOSE (06/20/2024 12:32 AM EST) Glucometer, POC 86 65 - 199 mg/dL 06/20/2024 12:32 AM EST [facility] Comment:Supplemental ranges: <140 mg/dL before meals <180 mg/dL all other times of the day. Blood CAPILLARY BLOOD / Unknown 06/20/2024 12:32 AM EST 06/20/2024 12:32 AM EST Bobby Loja MD POINT OF CARE TEST O RALPHERAPIETER Performing Organization Address [facility] Co de Phone Number [facility] [place] [address] * (ABNORMAL) POC, GLUCOSE (06/20/2024 12:02 AM EST) Glucometer, POC 59(L) 65 - 199 mg/dL 06/20/2024 12:02 AM EST [facility] Comment:Supplemental ranges: <140 mg/dL before meals <180 mg/dL all other times of the day. Blood CAPILLARY BLOOD / Unknown 06/20/2024 12:02 AM EST 06/20/2024 12:03 AM EST Bobby Loja MD POINT OF CARE TEST O NIKA Performing Organization Address [facility] Co de Phone Number [facility] [place] [address] * POC, GLUCOSE (06/19/2024 8:15 PM EST) Glucometer, POC 131 65 - 199 mg/dL 06/19/2024 8:15 PM EST [facility] Comment:Supplemental ranges: <140 mg/dL before meals <180 mg/dL all other times of the day. Blood CAPILLARY BLOOD / Unknown 06/19/2024 8:15 PM EST 06/19/2024 8:15 PM EST Bobby Loja MD POINT OF CARE TEST O NIKA Performing Organization Address [facility] Co de Phone Number [facility] [place] [address] * POC, GLUCOSE (06/19/2024 6:01 PM EST) Glucometer, POC 129 65 - 199 mg/dL 06/19/2024 6:01 PM EST [facility] Comment:Supplemental ranges: <140 mg/dL before meals <180 mg/dL all other times of the day. Blood CAPILLARY BLOOD / Unknown 06/19/2024 6:01 PM EST 06/19/2024 6:02 PM EST Bobby Loja MD POINT OF CARE TEST O NIKA Performing Organization Address [facility] Co de Phone Number [facility] [place] [address] * POC, GLUCOSE (06/19/2024 4:51 PM EST) Glucometer, POC 155 65 - 199 mg/dL 06/19/2024 4:51 PM EST [facility] Comment:Supplemental ranges: <140 mg/dL before meals <180 mg/dL all other times of the day. Blood CAPILLARY BLOOD / Unknown 06/19/2024 4:51 PM EST 06/19/2024 4:51 PM EST Bobby Loja MD POINT OF CARE TEST Abimael MAHER Performing Organization Address [facility] de Phone Number [facility] [place] [address] * POC, GLUCOSE (06/19/2024 12:37 PM EST) Glucometer, POC 136 65 - 199 mg/dL 06/19/2024 12:37 PM EST [facility] Comment:Supplemental ranges: <140 mg/dL before meals <180 mg/dL all other times of the day. Blood CAPILLARY BLOOD / Unknown 06/19/2024 12:37 PM EST 06/19/2024 12:37 PM EST Bobby Loja MD POINT OF CARE TEST O NIKA Performing Organization Address [facility] Co de Phone Number [facility] [place] [address] * POC, GLUCOSE (06/19/2024 11:20 AM EST) Glucometer, POC 185 65 - 199 mg/dL 06/19/2024 11:21 AM EST [facility] Comment:Supplemental ranges: <140 mg/dL before meals <180 mg/dL all other times of the day. Blood CAPILLARY BLOOD / Unknown 06/19/2024 11:20 AM EST 06/19/2024 11:21 AM EST Bobby Loja MD POINT OF CARE TEST O NIKA Performing Organization Address [facility] Co de Phone Number [facility] [place] [address] * POC, GLUCOSE (06/19/2024 7:21 AM EST) Glucometer, POC 125 65 - 199 mg/dL 06/19/2024 7:21 AM EST [facility] Comment:Supplemental ranges: <140 mg/dL before meals <180 mg/dL all other times of the day. Blood CAPILLARY BLOOD / Unknown 06/19/2024 7:21 AM EST 06/19/2024 7:22 AM EST Bobby Loja MD POINT OF CARE TEST Abimael MAHER Performing Organization Address [facility] Co de Phone Number [facility] [place] [address] * POC, GLUCOSE (06/19/2024 4:52 AM EST) Glucometer, POC 125 65 - 199 mg/dL 06/19/2024 4:52 AM EST [facility] Comment:Supplemental ranges: <140 mg/dL before meals <180 mg/dL all other times of the day. Blood CAPILLARY BLOOD / Unknown 06/19/2024 4:52 AM EST 06/19/2024 4:52 AM EST Narrative Authorizing Provider Result Saranya Loja MD POINT OF CARE TEST O NIKA Performing Organization Address City/[facility] Co de Phone Number [facility] [place] [address] * POC, GLUCOSE (06/19/2024 4:13 AM EST) Glucometer, POC 67 65 - 199 mg/dL 06/19/2024 4:13 AM EST [facility] Comment:Supplemental ranges: <140 mg/dL before meals <180 mg/dL all other times of the day. Blood CAPILLARY BLOOD / Unknown 06/19/2024 4:13 AM EST 06/19/2024 4:13 AM EST Bobby Loja MD POINT OF CARE TEST O NIKA Performing Organization Address [facility] Co de Phone Number [facility] [place] [address] * (ABNORMAL) POC, GLUCOSE (06/19/2024 3:48 AM EST) Glucometer, POC 51(LLL) 65 - 199 mg/dL 06/19/2024 3:48 AM EST [facility] Comment:Supplemental ranges: <140 mg/dL before meals <180 mg/dL all other times of the day. Blood CAPILLARY BLOOD / Unknown 06/19/2024 3:48 AM EST 06/19/2024 3:48 AM EST Bobby Loja MD POINT OF CARE TEST O NIKA Performing Organization Address City/[facility] Co de Phone Number [facility] [place] [address] * (ABNORMAL) Basic Metabolic Panel (06/19/2024 3:44 AM EST) Glucose 53(LLL) 65 - 199 mg/dL 06/19/2024 4:48 AM EST [facility] Comment:Glucose Concentratio n >=200 mg/dL plus symptoms is consistent with Diabetes Mellitus. Blood Urea Nitrogen 42(H) 10 - 20 mg/dL 06/19/2024 4:48 AM EST [facility] Creatinine 1.29 0.80 - 1.50 mg/dL 06/19/2024 4:48 AM EST [facility] Sodium 138 135 - 145 mMol/L 06/19/2024 4:48 AM EST [facility] Potassium 3.6 3.5 - 5.0 mMol/L 06/19/2024 4:48 AM EST [facility] Chloride 100 98 - 107 mMol/L 06/19/2024 4:48 AM EST [facility] Carbon Dioxide 29 22 - 31 mMol/L 06/19/2024 4:48 AM [facility] Anion Gap 9 5 - 15 mMol/L 06/19/2024 4:48 AM [facility] Calcium 8.8 8.5 - 10.5 mg/dL 06/19/2024 4:48 AM EST [facility] Est Glomerular Filtration Rate [...] EST Keila Hanley APRN CHEMISTRY ORDERABL ES [facility] [place] [address] * POC, GLUCOSE (06/19/2024 12:23 AM EST) Glucometer, POC 82 65 - 199 mg/dL 06/19/2024 12:23 AM EST [facility] Comment:Supplemental ranges: <140 mg/dL before meals <180 mg/dL all other times of the day. Blood CAPILLARY BLOOD / Unknown 06/19/2024 12:23 AM EST 06/19/2024 12:23 AM EST Bobby Loja MD POINT OF CARE TEST O NIKA Performing Organization Address [facility] Co de Phone Number [facility] [place] [address] * POC, GLUCOSE (06/18/2024 11:08 PM EST) Glucometer, POC 73 65 - 199 mg/dL 06/18/2024 11:08 PM EST [facility] Comment:Supplemental ranges: <140 mg/dL before meals <180 mg/dL all other times of the day. Blood CAPILLARY BLOOD / Unknown 06/18/2024 11:08 PM EST 06/18/2024 11:08 PM EST Bobby Loja MD POINT OF CARE TEST Abimael MAHER Performing Organization Address [facility] de Phone Number [facility] [place] [address] * POC, GLUCOSE (06/18/2024 7:32 PM EST) Glucometer, POC 167 65 - 199 mg/dL 06/18/2024 7:32 PM EST [facility] Comment:Supplemental ranges: <140 mg/dL before meals <180 mg/dL all other times of the day. Blood CAPILLARY BLOOD / Unknown 06/18/2024 7:32 PM EST 06/18/2024 7:32 PM EST Bobby Loja MD POINT OF CARE TEST O NIKA Performing Organization Address [facility] Co de Phone Number [facility] [place] [address] * POC, GLUCOSE (06/18/2024 6:08 PM EST) Glucometer, POC 140 65 - 199 mg/dL 06/18/2024 6:09 PM EST [facility] Comment:Supplemental ranges: <140 mg/dL before meals <180 mg/dL all other times of the day. Blood CAPILLARY BLOOD / Unknown 06/18/2024 6:08 PM EST 06/18/2024 6:09 PM EST Narrative Authorizing Provider Result Saranya Loja MD POINT OF CARE TEST O NKIA Performing Organization Address [facility] Co de Phone Number [facility] [place] [address] * POC, GLUCOSE (06/18/2024 4:17 PM EST) Glucometer, POC 144 65 - 199 mg/dL 06/18/2024 4:17 PM EST [facility] Comment:Supplemental ranges: <140 mg/dL before meals <180 mg/dL all other times of the day. Blood CAPILLARY BLOOD / Unknown 06/18/2024 4:17 PM EST 06/18/2024 4:17 PM EST Narrative Authorizing Provider Result Saranya Loja MD POINT OF CARE TEST O NIKA Performing Organization Address [facility] Co de Phone Number [facility] [place] [address] * POC, GLUCOSE (06/18/2024 12:09 PM EST) Glucometer, POC 180 65 - 199 mg/dL 06/18/2024 12:09 PM EST [facility] Comment:Supplemental ranges: <140 mg/dL before meals <180 mg/dL all other times of the day. Blood CAPILLARY BLOOD / Unknown 06/18/2024 12:09 PM EST 06/18/2024 12:09 PM EST Narrative Authorizing Provider Result Saranya Loja MD POINT OF CARE TEST O NIKA Performing Organization Address City/[facility] Co de Phone Number [facility] [place] [address] * POC, GLUCOSE (06/18/2024 7:49 AM EST) Glucometer, POC 125 65 - 199 mg/dL 06/18/2024 7:50 AM EST [facility] Comment:Supplemental ranges: <140 mg/dL before meals <180 mg/dL all other times of the day. Blood CAPILLARY BLOOD / Unknown 06/18/2024 7:49 AM EST 06/18/2024 7:50 AM EST Bobby Loja MD POINT OF CARE TEST O NIKA [facility] [place] [address] * (ABNORMAL) Basic Metabolic Panel (06/18/2024 4:19 AM EST) Glucose 103 65 - 199 mg/dL 06/18/2024 5:03 AM [facility] Comment:Glucose Concentratio n >=200 mg/dL plus symptoms is consistent with Diabetes Mellitus. Blood Urea Nitrogen 43(H) 10 - 20 mg/dL 06/18/2024 5:03 AM [facility] Creatinine 1.45 0.80 - 1.50 mg/dL 06/18/2024 5:03 AM [facility] Sodium 131(L) 135 - [...] m?? 06/18/2024 5:03 AM [facility] [...] APRN CHEMISTRY ORDERABL ES Performing Organization Address [facility] Co de Phone Number [facility] [place] [address] * POC, GLUCOSE (06/18/2024 3:50 AM EST) Glucometer, POC 99 65 - 199 mg/dL 06/18/2024 3:51 AM EST [facility] Comment:Supplemental ranges: <140 mg/dL before meals <180 mg/dL all other times of the day. Blood CAPILLARY BLOOD / Unknown 06/18/2024 3:50 AM EST 06/18/2024 3:51 AM EST Bobby Loja MD POINT OF CARE TEST O RDERABLES [facility] [place] [address] * POC, GLUCOSE (06/17/2024 11:10 PM EST) Glucometer, POC 92 65 - 199 mg/dL 06/17/2024 11:10 PM EST [facility] Comment:Supplemental ranges: <140 mg/dL before meals <180 mg/dL all other times of the day. Blood CAPILLARY BLOOD / Unknown 06/17/2024 11:10 PM EST 06/17/2024 11:10 PM EST Bobby Loja MD POINT OF CARE TEST O NIKA Performing Organization Address [facility] Co de Phone Number [facility] [place] [address] * POC, GLUCOSE (06/17/2024 7:54 PM EST) Glucometer, POC 126 65 - 199 mg/dL 06/17/2024 7:54 PM EST [facility] Comment:Supplemental ranges: <140 mg/dL before meals <180 mg/dL all other times of the day. Blood CAPILLARY BLOOD / Unknown 06/17/2024 7:54 PM EST 06/17/2024 7:54 PM EST Bobby Loja MD POINT OF CARE TEST O NIKA Performing Organization Address [facility] de Phone Number [facility] [place] [address] * POC, GLUCOSE (06/17/2024 4:07 PM EST) Glucometer, POC 141 65 - 199 mg/dL 06/17/2024 4:12 PM EST [facility] Comment:Supplemental ranges: <140 mg/dL before meals <180 mg/dL all other times of the day. Blood CAPILLARY BLOOD / Unknown 06/17/2024 4:07 PM EST 06/17/2024 4:12 PM EST Bobby Loja MD POINT OF CARE TEST O NIKA Performing Organization Address [facility] Co de Phone Number [facility] [place] [address] * XR Chest PA & Lateral (Generic) (06/17/2024 1:46 PM EST) WORKSTATION ID [id number] RAD Anatomical Region Laterality Modality Chest N/A [...] have questions please contact the health rn wound care that requested your imaging first. ? [...] who have questions please contactthe health rn wound care that requested your imaging first. Keilamariangel Hanley INFORMATION SECURITY ARCHITECT IMG DX ORDERABLES * (ABNORMAL) POC, GLUCOSE (06/17/2024 11:04 AM EST) Glucometer, POC 245(H) 65 - 199 mg/dL 06/17/2024 11:04 AM EST [facility] Comment:Supplemental ranges: <140 mg/dL before meals <180 mg/dL all other times of the day. Blood CAPILLARY BLOOD / Unknown 06/17/2024 11:04 AM EST 06/17/2024 11:04 AM EST Bobby Loja MD POINT OF CARE TEST O NIKA Performing Organization Address City/[facility]/ZIP Co de Phone Number [facility] [place] [address] * POC, GLUCOSE (06/17/2024 7:49 AM EST) Glucometer, POC 141 65 - 199 mg/dL 06/17/2024 7:55 AM EST [facility] Comment:Supplemental ranges: <140 mg/dL before meals <180 mg/dL all other times of the day. Blood CAPILLARY BLOOD / Unknown 06/17/2024 7:49 AM EST 06/17/2024 7:55 AM EST Bobby Loja MD POINT OF CARE TEST O NIKA [facility] [place] [address] * POC, GLUCOSE (06/17/2024 4:16 AM EST) Glucometer, POC 139 65 - 199 mg/dL 06/17/2024 4:16 AM EST [facility] Comment:Supplemental ranges: <140 mg/dL before meals <180 mg/dL all other times of the day. Blood CAPILLARY BLOOD / Unknown 06/17/2024 4:16 AM EST 06/17/2024 4:17 AM EST Bobby Loja MD POINT OF CARE TEST O RDERABLES [facility] [place] [address] * Lactate, Whole Blood (06/17/2024 2:39 AM EST) [facility] Lactate, Whole Blood 1.3 0.5 - 2.2 mmol/L 06/17/2024 2:46 AM EST [facility] Blood VENOUS BLOOD SPECIMEN / Unknown Venipuncture / Unknown 06/17/2024 2:39 AM EST 06/17/2024 2:43 AM EST Bobby Loja MD CHEMISTRY ORDERABLES Performing Organization Address City/[facility]/ZIP Co de Phone Number [facility] [place] [address] * (ABNORMAL) Hemogram (06/17/2024 2:39 AM EST) [facility] White Blood Cell 13.53(H) 4.00 - 9.50 x10(3)/mc L 06/17/2024 2:53 AM EST [facility] Red Blood Cell 3.55(L) 4.58 - 5.54 x10(6)/mc L 06/17/2024 2:53 AM EST [facility] Hemoglobin 10.8(L) 13.7 - 16.5 g/dL 06/17/2024 2:53 AM [facility] Hematocrit 33.0(L) 40.5 - 48.5 % 06/17/2024 2:53 AM EST [facility] Mean Cell Volume 93.0 [...] EST Bobby Loja MD HEMATOLOGY ORDERABLE S [facility] [place] [address] * (ABNORMAL) Basic Metabolic Panel (06/17/2024 2:39 AM EST) Glucose 149 65 - 199 mg/dL 06/17/2024 3:14 AM EST [facility] Comment:Glucose Concentratio n >=200 [...] 50 mL/min/1. 73 m?? 06/17/2024 3:14 AM [facility] [...] AM EST Bobby Loja MD CHEMISTRY ORDERABLES [facility] [place] [address] * (ABNORMAL) POC, GLUCOSE (06/17/2024 12:13 AM EST) Glucometer, POC 211(H) 65 - 199 mg/dL 06/17/2024 12:13 AM EST [facility] Comment:Supplemental ranges: <140 mg/dL before meals <180 mg/dL all other times of the day. Blood CAPILLARY BLOOD / Unknown 06/17/2024 12:13 AM EST 06/17/2024 12:14 AM EST Bobby Loja MD POINT OF CARE TEST O NIKA Performing Organization Address [facility] Co de Phone Number [facility] [place] [address] * (ABNORMAL) POC, GLUCOSE (06/16/2024 7:22 PM EST) Glucometer, POC 229(H) 65 - 199 mg/dL 06/16/2024 7:22 PM EST [facility] Comment:Supplemental ranges: <140 mg/dL before meals <180 mg/dL all other times of the day. Blood CAPILLARY BLOOD / Unknown 06/16/2024 7:22 PM EST 06/16/2024 7:22 PM EST Bobby Loja MD POINT OF CARE TEST Abimael MAHER Performing Organization Address City/[facility] Co de Phone Number [facility] [place] [address] * (ABNORMAL) POC, GLUCOSE (06/16/2024 6:14 PM EST) Glucometer, POC 220(H) 65 - 199 mg/dL 06/16/2024 6:14 PM EST [facility] Comment:Supplemental ranges: <140 mg/dL before meals <180 mg/dL all other times of the day. Blood CAPILLARY BLOOD / Unknown 06/16/2024 6:14 PM EST 06/16/2024 6:14 PM EST Bobby Loja MD POINT OF CARE TEST O RDBECKIE Performing Organization Address [facility] Co de Phone Number [facility] [place] [address] * Lactate, Whole Blood (06/16/2024 6:14 PM EST) Lactate, Whole Blood 1.8 0.5 - 2.2 mmol/L 06/16/2024 6:27 PM EST [facility] Blood VENOUS BLOOD SPECIMEN / Unknown Venipuncture / Unknown 06/16/2024 6:14 PM EST 06/16/2024 6:25 PM EST Bobby Loja MD CHEMISTRY ORDERABLES Performing Organization Address [facility] Co de Phone Number [facility] [place] [address] * (ABNORMAL) POC, GLUCOSE (06/16/2024 4:14 PM EST) Glucometer, POC 240(H) 65 - 199 mg/dL 06/16/2024 4:14 PM EST [facility] Comment:Supplemental ranges: <140 mg/dL before meals <180 mg/dL all other times of the day. Blood CAPILLARY BLOOD / Unknown 06/16/2024 4:14 PM EST 06/16/2024 4:14 PM EST Bobby Loja MD POINT OF CARE TEST O NIKA Performing Organization Address [facility] Co de Phone Number [facility] [place] [address] * POC, GLUCOSE (06/16/2024 11:49 AM EST) Glucometer, POC 199 65 - 199 mg/dL 06/16/2024 11:49 AM EST [facility] Comment:Supplemental ranges: <140 mg/dL before meals <180 mg/dL all other times of the day. Blood CAPILLARY BLOOD / Unknown 06/16/2024 11:49 AM EST 06/16/2024 11:49 AM EST Bobby Loja MD POINT OF CARE TEST O RDERABLES [facility] [place] [address] * (ABNORMAL) Hemogram (06/16/2024 11:44 AM EST) White Blood Cell 17.91(H) 4.00 - 9.50 x10(3)/mc L 06/16/2024 12:25 PM [facility] Red Blood Cell 3.47(L) 4.58 - 5.54 x10(6)/mc L 06/16/2024 12:25 PM [facility] Hemoglobin 10.5(L) 13.7 - 16.5 g/dL 06/16/2024 12:25 PM [facility] Hematocrit 33.1(L) 40.5 - 48.5 % 06/16/2024 12:25 PM [facility] Mean Cell Volume 95.4(H) [...] auto 0.0 % 06/16/2024 12:25 PM EST [facility] NRBC Absolute <0.01 <0.01 x10(3)/mc L 06/16/2024 12:25 PM EST [facility] Blood VENOUS BLOOD SPECIMEN / Unknown Venipuncture / Unknown 06/16/2024 11:44 AM EST 06/16/2024 12:03 PM EST Bobby Loja MD HEMATOLOGY ORDERABLE S [facility] [place] [address] * Lactate, Whole Blood (06/16/2024 9:02 AM EST) Lactate, Whole Blood 1.8 0.5 - 2.2 mmol/L 06/16/2024 9:19 AM EST [facility] Blood VENOUS BLOOD SPECIMEN / Unknown Venipuncture / Unknown 06/16/2024 9:02 AM EST 06/16/2024 9:17 AM EST Narrative Authorizing Provider Result Saranya Loja MD CHEMISTRY ORDERABLES Performing Organization Address [facility]/ZIP Co de Phone Number [facility] [place] [address] * POC, GLUCOSE (06/16/2024 7:44 AM EST) Glucometer, POC 129 65 - 199 mg/dL 06/16/2024 7:44 AM EST [facility] Comment:Supplemental ranges: <140 mg/dL before meals <180 mg/dL all other times of the day. Blood CAPILLARY BLOOD / Unknown 06/16/2024 7:44 AM EST 06/16/2024 7:44 AM EST Narrative Authorizing Provider Result Saranya Loja MD POINT OF CARE TEST O RDERABLES Performing Organization Address City/[facility]/ZIP Co de Phone Number [facility] [place] [address] * POC, GLUCOSE (06/16/2024 4:01 AM EST) Glucometer, POC 158 65 - 199 mg/dL 06/16/2024 4:01 AM EST [facility] Comment:Supplemental ranges: <140 mg/dL before meals <180 mg/dL all other times of the day. Blood CAPILLARY BLOOD / Unknown 06/16/2024 4:01 AM EST 06/16/2024 4:01 AM EST Bobby Loja MD POINT OF CARE TEST O RDERABLES [facility] [place] [address] * (ABNORMAL) Basic Metabolic Panel (06/16/2024 2:23 [...] mL/min/1. 73 m?? 06/16/2024 3:13 AM EST [facility] Comment: This patient's estimated [...] Loja MD CHEMISTRY ORDERABLES Performing Organization Address [facility]/ZIP Co de Phone Number [facility] [place] [address] * POC, GLUCOSE (06/16/2024 2:21 AM EST) Glucometer, POC 176 65 - 199 mg/dL 06/16/2024 2:31 AM EST [facility] Comment:Supplemental ranges: <140 mg/dL before meals <180 mg/dL all other times of the day. Blood CAPILLARY BLOOD / Unknown 06/16/2024 2:21 AM EST 06/16/2024 2:31 AM EST Bobby Loja MD POINT OF CARE TEST O RDERABLES Performing Organization Address City/[facility]/ZIP Co de Phone Number [facility] [place] [address] * (ABNORMAL) POC, GLUCOSE (06/16/2024 12:09 AM EST) Glucometer, POC 222(H) 65 - 199 mg/dL 06/16/2024 12:09 AM EST [facility] Comment:Supplemental ranges: <140 mg/dL before meals <180 mg/dL all other times of the day. Blood CAPILLARY BLOOD / Unknown 06/16/2024 12:09 AM EST 06/16/2024 12:09 AM EST Narrative Authorizing Provider Result Saranya Loja MD POINT OF CARE TEST O NIKA Performing Organization Address City/[facility]/ZIP Co de Phone Number [facility] [place] [address] * (ABNORMAL) POC, GLUCOSE (06/15/2024 10:07 PM EST) Glucometer, POC 320(H) 65 - 199 mg/dL 06/15/2024 10:07 PM EST [facility] Comment:Supplemental ranges: <140 mg/dL before meals <180 mg/dL all other times of the day. Blood CAPILLARY BLOOD / Unknown 06/15/2024 10:07 PM EST 06/15/2024 10:07 PM EST Bobby Loja MD POINT OF CARE TEST O NIKA Performing Organization Address [facility]/ZIP Co de Phone Number [facility] [place] [address] * (ABNORMAL) POC, GLUCOSE (06/15/2024 7:56 PM EST) Glucometer, POC 304(H) 65 - 199 mg/dL 06/15/2024 7:56 PM EST [facility] Comment:Supplemental ranges: <140 mg/dL before meals <180 mg/dL all other times of the day. Blood CAPILLARY BLOOD / Unknown 06/15/2024 7:56 PM EST 06/15/2024 7:56 PM EST Narrative Authorizing Provider Result Saranya Loja MD POINT OF CARE TEST O NIKA [facility] [place] [address] * (ABNORMAL) POC, GLUCOSE (06/15/2024 7:52 PM EST) Glucometer, POC 288(H) 65 - 199 mg/dL 06/15/2024 7:52 PM EST [facility] Comment:Supplemental ranges: <140 mg/dL before meals <180 mg/dL all other times of the day. Blood CAPILLARY BLOOD / Unknown 06/15/2024 7:52 PM EST 06/15/2024 7:52 PM EST Bobby Loja MD POINT OF CARE TEST O NIKA [facility] [place] [address] * POC, GLUCOSE (06/15/2024 4:21 PM EST) Glucometer, POC 192 65 - 199 mg/dL 06/15/2024 4:21 PM EST [facility] Comment:Supplemental ranges: <140 mg/dL before meals <180 mg/dL all other times of the day. Blood CAPILLARY BLOOD / Unknown 06/15/2024 4:21 PM EST 06/15/2024 4:21 PM EST Bobby Loja MD POINT OF CARE TEST O NIKA Performing Organization Address [facility]/ZIP Co de Phone Number [facility] [place] [address] * POC, GLUCOSE (06/15/2024 3:27 PM EST) Glucometer, POC 155 65 - 199 mg/dL 06/15/2024 3:27 PM EST [facility] Comment:Supplemental ranges: <140 mg/dL before meals <180 mg/dL all other times of the day. Blood CAPILLARY BLOOD / Unknown 06/15/2024 3:27 PM EST 06/15/2024 3:27 PM EST Bobby Loja MD POINT OF CARE TEST O NIKA [facility] [place] [address] * POC, GLUCOSE (06/15/2024 2:23 PM EST) Glucometer, POC 160 65 - 199 mg/dL 06/15/2024 2:23 PM EST [facility] Comment:Supplemental ranges: <140 mg/dL before meals <180 mg/dL all other times of the day. Blood CAPILLARY BLOOD / Unknown 06/15/2024 2:23 PM EST 06/15/2024 2:23 PM EST Bobby Loja MD POINT OF CARE TEST O NIKA Performing Organization Address City/[facility]/ZIP Co de Phone Number [facility] [place] [address] * POC, GLUCOSE (06/15/2024 1:26 PM EST) Glucometer, POC 167 65 - 199 mg/dL 06/15/2024 1:26 PM EST [facility] Comment:Supplemental ranges: <140 mg/dL before meals <180 mg/dL all other times of the day. Blood CAPILLARY BLOOD / Unknown 06/15/2024 1:26 PM EST 06/15/2024 1:26 PM EST Bobby Loja MD POINT OF CARE TEST O NIKA Performing Organization Address City/[facility]/ZIP Co de Phone Number [facility] [place] [address] * (ABNORMAL) POC, GLUCOSE (06/15/2024 12:55 PM EST) Glucometer, POC 210(H) 65 - 199 mg/dL 06/15/2024 12:55 PM EST [facility] Comment:Supplemental ranges: <140 mg/dL before meals <180 mg/dL all other times of the day. Blood CAPILLARY BLOOD / Unknown 06/15/2024 12:55 PM EST 06/15/2024 12:55 PM EST Bobby Loja MD POINT OF CARE TEST O NIKA Performing Organization Address City/[facility]/ZIP Co de Phone Number [facility] [place] [address] * (ABNORMAL) POC, GLUCOSE (06/15/2024 11:29 AM EST) Glucometer, POC 220(H) 65 - 199 mg/dL 06/15/2024 11:29 AM EST [facility] Comment:Supplemental ranges: <140 mg/dL before meals <180 mg/dL all other times of the day. Blood CAPILLARY BLOOD / Unknown 06/15/2024 11:29 AM EST 06/15/2024 11:29 AM EST Bobby Loja MD POINT OF CARE TEST O NIKA Performing Organization Address [facility]/ZIP Co de Phone Number [facility] [place] [address] * (ABNORMAL) Basic Metabolic Panel (06/15/2024 11:23 AM EST) Glucose 215(H) 65 - 199 mg/dL 06/15/2024 12:08 PM EST [facility] Comment:Glucose Concentratio n >=200 [...] - 15 mMol/L 06/15/2024 12:08 PM EST [facility] Calcium 8.3(L) 8.5 - 10.5 mg/dL 06/15/2024 12:08 PM EST [facility] Est Glomerular Filtration Rate - Male 49 mL/min/1. 73 m?? 06/15/2024 12:08 PM EST [facility] Comment: This patient's estimated [...] Loja MD CHEMISTRY ORDERABLES Performing Organization Address City/[facility]/ZIP Co de Phone Number [facility] [place] [address] * POC, GLUCOSE (06/15/2024 10:29 AM EST) [facility] Signature Glucometer, POC 189 65 - 199 mg/dL 06/15/2024 10:29 AM EST [facility] Comment:Supplemental ranges: <140 mg/dL before meals <180 mg/dL all other times of the day. Blood CAPILLARY BLOOD / Unknown 06/15/2024 10:29 AM EST 06/15/2024 10:29 AM EST Bobby Loja MD POINT OF CARE TEST O RDERABLES [facility] [place] [address] * POC, GLUCOSE (06/15/2024 9:45 AM EST) Glucometer, POC 178 65 - 199 mg/dL 06/15/2024 9:45 AM EST [facility] Comment:Supplemental ranges: <140 mg/dL before meals <180 mg/dL all other times of the day. Blood CAPILLARY BLOOD / Unknown 06/15/2024 9:45 AM EST 06/15/2024 9:45 AM EST Bobby Loja MD POINT OF CARE TEST O NIKA Performing Organization Address City/[facility]/ZIP Co de Phone Number [facility] [place] [address] * (ABNORMAL) Cooximetry, POC (06/15/2024 9:31 AM EST) pO2, Coox 38 mmHg 06/15/2024 9:34 AM [facility] Hemoglobin, Coox 12.9(L) 13.7 [...] MD POINT OF CARE TEST O NIKA [facility] [place] [address] * Cooximetry, POC (06/15/2024 9:22 AM EST) [...] MD POINT OF CARE TEST O RDERABLES [facility] [place] [address] * (ABNORMAL) Blood Gas, Arterial POC (06/15/2024 [...] [facility] Flow Rate 2.0 L/min [...] MD POINT OF CARE TEST O RDERABLES [facility] [place] [address] * (ABNORMAL) POC, GLUCOSE (06/15/2024 8:37 AM EST) Glucometer, POC 204(H) 65 - 199 mg/dL 06/15/2024 8:37 AM EST [facility] Comment:Supplemental ranges: <140 mg/dL before meals <180 mg/dL all other times of the day. Blood CAPILLARY BLOOD / Unknown 06/15/2024 8:37 AM EST 06/15/2024 8:37 AM EST Bobby Loja MD POINT OF CARE TEST O NIKA Performing Organization Address [facility] Co de Phone Number [facility] [place] [address] * POC, GLUCOSE (06/15/2024 7:37 AM EST) Glucometer, POC 199 65 - 199 mg/dL 06/15/2024 7:37 AM EST [facility] Comment:Supplemental ranges: <140 mg/dL before meals <180 mg/dL all other times of the day. Blood CAPILLARY BLOOD / Unknown 06/15/2024 7:37 AM EST 06/15/2024 7:38 AM EST Bobby Loja MD POINT OF CARE TEST Abimael MAHER Performing Organization Address [facility] Co de Phone Number [facility] [place] [address] * (ABNORMAL) POC, GLUCOSE (06/15/2024 7:01 AM EST) Glucometer, POC 203(H) 65 - 199 mg/dL 06/15/2024 7:01 AM EST [facility] Comment:Supplemental ranges: <140 mg/dL before meals <180 mg/dL all other times of the day. Blood CAPILLARY BLOOD / Unknown 06/15/2024 7:01 AM EST 06/15/2024 7:01 AM EST Bobby Loja MD POINT OF CARE TEST Abimael MAHER [facility] [place] [address] * XR Chest One View (06/15/2024 6:31 AM EST) WORKSTATION ID [id number] RAD Anatomical Region Laterality Modality Chest N/A [...] have questions please contact the health rn wound care that requested your imaging first. ? [...] who have questions please contactthe health rn wound care that requested your imaging first. Bobby Loja MD IMG DX ORDERABLES * POC, GLUCOSE (06/15/2024 6:02 AM EST) Glucometer, POC 179 65 - 199 mg/dL 06/15/2024 6:02 AM EST [facility] Comment:Supplemental ranges: <140 mg/dL before meals <180 mg/dL all other times of the day. Blood CAPILLARY BLOOD / Unknown 06/15/2024 6:02 AM EST 06/15/2024 6:02 AM EST Narrative Authorizing Provider Result Saranya Loja MD POINT OF CARE TEST O NIKA Performing Organization Address City/[facility] Co de Phone Number [facility] [place] [address] * POC, GLUCOSE (06/15/2024 5:06 AM EST) Glucometer, POC 160 65 - 199 mg/dL 06/15/2024 5:06 AM EST [facility] Comment:Supplemental ranges: <140 mg/dL before meals <180 mg/dL all other times of the day. Blood CAPILLARY BLOOD / Unknown 06/15/2024 5:06 AM EST 06/15/2024 5:06 AM EST Narrative Authorizing Provider Result Saranya Loja MD POINT OF CARE TEST O RDERABLES Performing Organization Address City/[facility]/ZIP Co de Phone Number [facility] [place] [address] * POC, GLUCOSE (06/15/2024 4:05 AM EST) Glucometer, POC 160 65 - 199 mg/dL 06/15/2024 4:06 AM EST [facility] Comment:Supplemental ranges: <140 mg/dL before meals <180 mg/dL all other times of the day. Blood CAPILLARY BLOOD / Unknown 06/15/2024 4:05 AM EST 06/15/2024 4:06 AM EST Bobby Loja MD POINT OF CARE TEST O NIKA Performing Organization Address [facility] Co de Phone Number [facility] [place] [address] * POC, GLUCOSE (06/15/2024 3:07 AM EST) Glucometer, POC 151 65 - 199 mg/dL 06/15/2024 3:07 AM EST [facility] Comment:Supplemental ranges: <140 mg/dL before meals <180 mg/dL all other times of the day. Blood CAPILLARY BLOOD / Unknown 06/15/2024 3:07 AM EST 06/15/2024 3:07 AM EST Bobby Loja MD POINT OF CARE TEST O RDERAPIETER Performing Organization Address [facility]/ZIP Co de Phone Number [facility] [place] [address] * (ABNORMAL) Basic Metabolic Panel (06/15/2024 1:48 AM EST) Glucose 140 65 - 199 mg/dL 06/15/2024 2:38 AM EST [facility] Comment:Glucose Concentratio n >=200 mg/dL plus symptoms is consistent with Diabetes Mellitus. Blood Urea Nitrogen 21(H) 10 - 20 mg/dL 06/15/2024 2:38 AM EST [facility] Creatinine 1.27 0.80 - 1.50 mg/dL 06/15/2024 2:38 AM EST [facility] Sodium 140 135 - [...] AM EST Bobby Loja MD CHEMISTRY ORDERABLES [facility] [place] [address] * (ABNORMAL) CBC (with Diff) (06/15/2024 1:48 AM EST) White Blood Cell 11.71(H) 4.00 - 9.50 x10(3)/mc L 06/15/2024 2:13 AM [facility] Red Blood Cell 4.14(L) [...] 6.10 x10(3)/mc L 06/15/2024 2:13 AM EST [facility] Lymph % 8.0 % 06/15/2024 2:13 AM EST [facility] Lymph Absolute 0.94 0.90 - 3.20 x10(3)/mc L 06/15/2024 2:13 AM EST [facility] Monocyte % 11.4 % 06/15/2024 2:13 AM EST [facility] Monocyte Absolute 1.33(H) 0.30 - 0.90 x10(3)/mc L 06/15/2024 2:13 AM EST [facility] Eos % 0.2 % 06/15/2024 2:13 AM EST [facility] Eos Absolute <0.04 0.00 - 0.40 x10(3)/mc L 06/15/2024 2:13 AM EST [facility] Basophil % 0.2 % 06/15/2024 2:13 AM EST [facility] Baso Absolute <0.04 0.00 - 0.10 x10(3)/mc L 06/15/2024 2:13 AM EST [facility] Immature Gran % 0.5 % 2:13 AM EST [facility] Immature Gran Absolute 0.06(H) 0.00 - 0.04 x10(3)/mc L 06/15/2024 2:13 AM EST [facility] Blood VENOUS BLOOD SPECIMEN / Unknown Venipuncture / Unknown 06/15/2024 1:48 AM EST 06/15/2024 1:52 AM EST Bobby Loja MD HEMATOLOGY ORDERABLE S [facility] [place] [address] * (ABNORMAL) Troponin - Single (06/15/2024 1:48 AM EST) Troponin-T, High Sensitivity 667(H) <=22 ng/L 06/15/2024 2:22 AM EST [facility] Comment: This patient's troponin [...] can be found in the [facility] Laboratory Test Catalog Troponin - https://[email or web address]-.testcatalog.org/catalogs/565/[email or web address]/31781 Reference: Fourth [place] Definition of Myocardial Infarction. Journal of the [place] [employer] 2018;72:0824-7148 Blood VENOUS BLOOD SPECIMEN / Unknown Venipuncture / Unknown 06/15/2024 1:48 AM EST 06/15/2024 1:52 AM EST Bobby Loja MD CHEMISTRY ORDERABLES [facility] [place] [address] * (ABNORMAL) Blood Gas, Arterial POC (06/15/2024 1:46 AM EST) Pathologist [facility] pH, Arterial 7.33(L) 7.35 - 7.45 06/15/2024 1:47 AM EST [facility] PCO2, Arterial 40 35 - 45 mmHg 06/15/2024 1:47 AM EST [facility] PO2, Arterial 131(H) 85 [...] - 199 mg/dL 06/15/2024 1:47 AM EST [facility] Comment:Glucose Concentratio n >=200 mg/dL plus symptoms is consistent with Diabetes Mellitus. Blood ARTERIAL BLOOD / Unknown 06/15/2024 1:46 AM EST 06/15/2024 1:47 AM EST Bobby Loja MD POINT OF CARE TEST O NIKA Performing Organization Address City/[facility]/ZIP Co de Phone Number [facility] [place] [address] * POC, GLUCOSE (06/15/2024 1:05 AM EST) Glucometer, POC 116 65 - 199 mg/dL 06/15/2024 1:05 AM EST [facility] Comment:Supplemental ranges: <140 mg/dL before meals <180 mg/dL all other times of the day. Blood CAPILLARY BLOOD / Unknown 06/15/2024 1:05 AM EST 06/15/2024 1:05 AM EST Bobby Loja MD POINT OF CARE TEST O NIKA Performing Organization Address [facility] Co de Phone Number [facility] [place] [address] * POC, GLUCOSE (06/15/2024 12:16 AM EST) Glucometer, POC 135 65 - 199 mg/dL 06/15/2024 12:16 AM EST [facility] Comment:Supplemental ranges: <140 mg/dL before meals <180 mg/dL all other times of the day. Blood CAPILLARY BLOOD / Unknown 06/15/2024 12:16 AM EST 06/15/2024 12:16 AM EST Bobby Loja MD POINT OF CARE TEST O NIKA Performing Organization Address City/[facility]/ZIP Co de Phone Number [facility] [place] [address] * Potassium (06/14/2024 11:28 PM EST) Potassium 4.1 3.5 - 5.0 mMol/L 06/14/2024 11:54 PM EST [facility] Blood VENOUS BLOOD SPECIMEN / Unknown Venipuncture / Unknown 06/14/2024 11:28 PM EST 06/14/2024 11:34 PM EST Bobby Loja MD CHEMISTRY ORDERABLES [facility] [place] [address] * POC, GLUCOSE (06/14/2024 10:58 PM EST) Glucometer, POC 126 65 - 199 mg/dL 06/14/2024 10:59 PM EST [facility] Comment:Supplemental ranges: <140 mg/dL before meals <180 mg/dL all other times of the day. Blood CAPILLARY BLOOD / Unknown 06/14/2024 10:58 PM EST 06/14/2024 10:59 PM EST Bobby Loja MD POINT OF CARE TEST O RDERABLES Performing Organization Address City/[facility]/ZIP Co de Phone Number [facility] [place] [address] * POC, GLUCOSE (06/14/2024 9:55 PM EST) Glucometer, POC 152 65 - 199 mg/dL 06/14/2024 9:56 PM EST [facility] Comment:Supplemental ranges: <140 mg/dL before meals <180 mg/dL all other times of the day. Blood CAPILLARY BLOOD / Unknown 06/14/2024 9:55 PM EST 06/14/2024 9:56 PM EST Bobby Loja MD POINT OF CARE TEST O RDBECKIE [facility] [place] [address] * POC, GLUCOSE (06/14/2024 8:54 PM EST) Glucometer, POC 151 65 - 199 mg/dL 06/14/2024 8:54 PM EST [facility] Comment:Supplemental ranges: <140 mg/dL before meals <180 mg/dL all other times of the day. Blood CAPILLARY BLOOD / Unknown 06/14/2024 8:54 PM EST 06/14/2024 8:54 PM EST Bobby Loja MD POINT OF CARE TEST O RDERAPIETER Performing Organization Address City/[facility]/ZIP Co de Phone Number [facility] [place] [address] * POC, GLUCOSE (06/14/2024 7:51 PM EST) Glucometer, POC 169 65 - 199 mg/dL 06/14/2024 7:52 PM EST [facility] Comment:Supplemental ranges: <140 mg/dL before meals <180 mg/dL all other times of the day. Blood CAPILLARY BLOOD / Unknown 06/14/2024 7:51 PM EST 06/14/2024 7:52 PM EST Bobby Loja MD POINT OF CARE TEST O RDERAPIETER Performing Organization Address City/[facility]/ZIP Co de Phone Number [facility] [place] [address] * POC, GLUCOSE (06/14/2024 6:49 PM EST) Glucometer, POC 194 65 - 199 mg/dL 06/14/2024 6:50 PM EST [facility] Comment:Supplemental ranges: <140 mg/dL before meals <180 mg/dL all other times of the day. Blood CAPILLARY BLOOD / Unknown 06/14/2024 6:49 PM EST 06/14/2024 6:50 PM EST Bobby Loja MD POINT OF CARE TEST O RDERAPIETER [facility] [place] [address] * (ABNORMAL) Hemoglobin (06/14/2024 6:19 PM EST) [facility] Hemoglobin 13.1(L) 13.7 - 16.5 g/dL 06/14/2024 7:08 PM EST [facility] Blood VENOUS BLOOD SPECIMEN / Unknown Venipuncture / Unknown 06/14/2024 6:19 PM EST 06/14/2024 6:28 PM EST Bobby Loja MD HEMATOLOGY ORDERABLE S Performing Organization Address [facility] [place] Phone Number [facility] [place] [address] * Potassium (06/14/2024 6:19 PM EST) [facility] Potassium 3.9 3.5 - 5.0 mMol/L 06/14/2024 6:52 PM EST [facility] Blood VENOUS BLOOD SPECIMEN / Unknown Venipuncture / Unknown 06/14/2024 6:19 PM EST 06/14/2024 6:28 PM EST Bobby Loja MD CHEMISTRY ORDERABLES Performing Organization Address [facility] de Phone Number [facility] [place] [address] * (ABNORMAL) POC, GLUCOSE (06/14/2024 6:03 PM EST) [facility] Glucometer, POC 201(H) 65 - 199 mg/dL 06/14/2024 6:03 PM EST [facility] Comment:Supplemental ranges: <140 mg/dL before meals <180 mg/dL all other times of the day. Blood CAPILLARY BLOOD / Unknown 06/14/2024 6:03 PM EST 06/14/2024 6:03 PM EST Bobby Loja MD POINT OF CARE TEST O RDERABLES [facility] [place] [address] * (ABNORMAL) Blood Gas, Arterial POC (06/14/2024 4:51 PM EST) pH, Arterial 7.32(L) 7.35 - 7.45 06/14/2024 4:52 PM EST [facility] PCO2, Arterial 46(H) 35 - 45 mmHg 06/14/2024 4:52 PM [facility] PO2, Arterial 85 85 - 104 mmHg 06/14/2024 4:52 PM [facility] Bicarbonate, Arterial 23.1 20.0 - 26.0 mmol/L 06/14/2024 4:52 PM [facility] Base Excess, Arterial -3.1(L) -3.0 - 3.0 mmol/L 06/14/2024 4:52 PM [facility] Hemoglobin, Arterial 14.3 13.7 [...] - 2.2 mmol/L 06/14/2024 4:52 PM EST [facility] Fraction of Inspired Oxygen 40 % 06/14/2024 4:52 PM EST [facility] PF Ratio 213 Ratio 06/14/2024 4:52 PM EST [facility] Comment:PF ratio calculated using the non-temperature corrected pO2 result. IONIZED CALCIUM, ARTERIAL 1.16 1.15 - 1.33 mmol/L 06/14/2024 4:52 PM EST [facility] Glucose, Arterial 192 65 - 199 mg/dL 06/14/2024 4:52 PM EST [facility] Comment:Glucose Concentratio n >=200 mg/dL plus symptoms is consistent with Diabetes Mellitus. Blood ARTERIAL BLOOD / Unknown 06/14/2024 4:51 PM EST 06/14/2024 4:52 PM EST Bobby Loja MD POINT OF CARE TEST O NIKA Performing Organization Address City/[facility]/ZIP Co de Phone Number [facility] [place] [address] * POC, GLUCOSE (06/14/2024 4:00 PM EST) Pathologist [employer] Glucometer, POC 184 65 - 199 mg/dL 06/14/2024 4:01 PM EST [facility] Comment:Supplemental ranges: <140 mg/dL before meals <180 mg/dL all other times of the day. Blood CAPILLARY BLOOD / Unknown 06/14/2024 4:00 PM EST 06/14/2024 4:01 PM EST Bobby Loja MD POINT OF CARE TEST Abimael MAHER Performing Organization Address City/[facility]/[place] [address] * XR Chest One View (06/14/2024 3:05 PM EST) codetag WORKSTATION ID [id number] RAD Anatomical Region Laterality Modality Chest N/A [...] have questions please contact the health rn wound care that requested your imaging first. ? [...] pleural effusion or pneumothorax.. Procedure Note Stuart Apotne MD - 06/14/2024 EXAMINATION: XR CHEST ONE [...] who have questions please contactthe health rn wound care that requested your imaging first. Bobby Loja MD IMG DX ORDERABLES * (ABNORMAL) Blood Gas, Arterial POC (06/14/2024 2:52 PM EST) pH, Arterial 7.28(LLL) 7.35 - 7.45 06/14/2024 2:53 PM EST [facility] PCO2, Arterial 50(H) 35 [...] [facility] PF Ratio 510 Ratio 06/14/2024 2:53 PM [facility] Comment:PF ratio calculated using the non-temperature corrected pO2 result. IONIZED CALCIUM, ARTERIAL 1.15 1.15 - 1.33 mmol/L 06/14/2024 2:53 PM [facility] Glucose, Arterial 169 65 - 199 mg/dL 06/14/2024 2:53 PM [facility] Comment:Glucose Concentratio n >=200 mg/dL plus symptoms is consistent with Diabetes Mellitus. Blood ARTERIAL BLOOD / Unknown 06/14/2024 2:52 PM EST 06/14/2024 2:53 PM EST Bobby Loja MD POINT OF CARE TEST O RDERABLES Performing Organization Address City/[facility]/ZIP Co de Phone Number [facility] [place] [address] * EKG 12 Lead (06/14/2024 2:46 PM EST) Ventricular rate 80 BPM MUSE SYSTEM Atrial Rate 80 BPM MUSE SYSTEM P-R Interval 120 ms MUSE SYSTEM QRS Duration 108 ms MUSE SYSTEM Q-T Interval 454 ms MUSE SYSTEM QTC Calculated (Bezet) 523 ms MUSE SYSTEM Calculated P [place] 70 degrees MUSE SYSTEM Calculated R [place] 56 degrees MUSE SYSTEM Calculated T [place] 50 degrees MUSE SYSTEM INTERPRETATION AV dual-paced rhythm Abnormal ECG When compared with ECG of 03-JUN-2024 01:45, Vent. rate has increased BY ??17 BPM Confirmed by MD Marisol, Shaheen ([id number]) on 06/15/2024 1:57:23 PM MUSE SYSTEM 06/14/2024 2:46 PM EST 06/15/2024 1:57 PM EST Bobby Loja MD ECG ORDERABLES Performing Organization Address City/[facility]/ZIP Co de Phone Number MUSE SYSTEM * Prepare RBC (06/14/2024 2:27 PM EST) Status Information Returned [facility] Product Identification RBC [facility] Unit Number [id number] [facility] Product Code T7937H54 [facility] Unit Blood Type OPOS [facility] Specimen Expiration Date [facility] Volulme 350 [facility] Issue Date / Time [facility] Status Information Returned [facility] Product Identification RBC [facility] Unit Number [id number] [facility] Product Code E5127K56 [facility] Unit Blood Type OPOS [facility] Specimen Expiration Date [facility] Volulme 350 [facility] Issue Date / Time [facility] Blood 06/14/2024 6:2 5 AM EST Haja Byrnes MD BLOOD BANK PRODUCT O RDERAPIETER [facility] [place] [place] [address] * (ABNORMAL) Cooximetry, POC (06/14/2024 1:52 PM EST) pO2, Coox 58 mmHg 06/14/2024 1:55 PM EST [facility] Hemoglobin, Coox 12.6(L) 13.7 - 16.5 g/dL 06/14/2024 1:55 PM EST [facility] Oxyhemoglobin, Coox 85.5 % 06/14/2024 1:55 PM EST [facility] Carboxyhemoglo bin, Coox 0.3 % 06/14/2024 1:55 PM EST [facility] Comment: Nonsmokers: 0.5-1.5% COHB ?? Smokers: Variable ??but usually less than 10% ?? Toxic: 20-30% COHB ?? Lethal: Greater than 60% COHB Methemoglobin, Coox 0.6 <=1.5 % 06/14/2024 1:55 PM EST [facility] Blood (Mixed Venous) 06/14/2024 1:52 PM EST 06/14/2024 1:55 PM EST Haja Byrnes MD POINT OF CARE TEST O NIKA Performing Organization Address City/[facility]/ZIP Co de Phone Number [facility] [place] [address] * (ABNORMAL) Blood Gas, Arterial POC (06/14/2024 12:47 PM EST) pH, Arterial 7.33(L) 7.35 - 7.45 06/14/2024 12:48 PM EST [facility] PCO2, Arterial 46(H) 35 - 45 mmHg 06/14/2024 12:48 PM EST [facility] PO2, Arterial 358(H) 85 [...] [facility] Lactate, Arterial 1.4 0.5 - 2.2 mmol/L 06/14/2024 12:48 PM [facility] IONIZED CALCIUM, ARTERIAL 1.09(L) 1.15 - 1.33 mmol/L 06/14/2024 12:48 PM [facility] Glucose, Arterial 157 65 - 199 mg/dL 06/14/2024 12:48 PM [facility] Comment:Glucose Concentratio n >=200 mg/dL plus symptoms is consistent with Diabetes Mellitus. Blood ARTERIAL BLOOD / Unknown 06/14/2024 12:47 PM EST 06/14/2024 12:48 PM EST Haja Byrnes MD POINT OF CARE TEST O NIKA [facility] [place] [address] * (ABNORMAL) Cooximetry, POC (06/14/2024 12:42 PM EST) pO2, Coox 71 mmHg 06/14/2024 12:45 PM EST [facility] Hemoglobin, Coox 11.6(L) 13.7 - 16.5 g/dL 06/14/2024 12:45 PM EST [facility] Oxyhemoglobin, Coox 91.5 % 06/14/2024 12:45 PM EST [facility] Carboxyhemoglo bin, Coox 0.3 % 06/14/2024 12:45 PM EST [facility] Comment: Nonsmokers: 0.5-1.5% COHB ?? Smokers: Variable ??but usually less than 10% ?? Toxic: 20-30% COHB ?? Lethal: Greater than 60% COHB Methemoglobin, Coox 0.4 <=1.5 % 06/14/2024 12:45 PM EST [facility] Blood (Mixed Venous) 06/14/2024 12:42 PM EST 06/14/2024 12:45 PM EST Haja Byrnes MD POINT OF CARE TEST O NIKA [facility] [place] [address] * (ABNORMAL) Platelet count (06/14/2024 12:30 PM EST) Platelet 73(L) 145 - 357 x10(3)/mcL 06/14/2024 12:54 PM EST [facility] Blood ARTERIAL BLOOD / Unknown 06/14/2024 12:30 PM EST Comment:Pre-op diagnosis: CAD Bobby Loja MD HEMATOLOGY ORDERABLE S Performing Organization Address City/[facility]/ZIP Co de Phone Number [facility] [place] [address] * (ABNORMAL) Hemoglobin and Hematocrit, blood (06/14/2024 12:30 PM EST) Hemoglobin 10.9(L) 13.7 - 16.5 g/dL 06/14/2024 12:54 PM EST [facility] Hematocrit 33.5(L) 40.5 - 48.5 % 06/14/2024 12:54 PM EST [facility] Comment:This result has been called to Danielle López by Satya Page on 06/14/2024 12:53:56, and has been read back. Blood ARTERIAL BLOOD / Unknown 06/14/2024 12:30 PM EST 06/14/2024 12:42 PM EST Comment:Pre-op diagnosis: CAD Bobby Loaj MD HEMATOLOGY ORDERABLE S Performing Organization Address [facility]/ZIP Co de Phone Number [facility] [place] [address] * APTT (06/14/2024 12:30 PM EST) Partial Thromboplastin Time 31 25 - 37 sec 06/14/2024 12:57 PM EST [facility] Comment: The PTT is [...] Performing Organization Address City/[facility]/ZIP Co de Phone Number [facility] [place] [address] * (ABNORMAL) Prothrombin Time (06/14/2024 12:30 PM EST) Prothrombin Time 16.8(H) 9.4 - 12.5 sec 06/14/2024 12:57 PM EST [facility] International Normalization Ratio 1.5 <=4.9 06/14/2024 12:57 PM EST [facility] Comment: An INR < [...] Performing Organization Address City/[facility]/ZIP Co de Phone Number [facility] [place] [address] * Fibrinogen (06/14/2024 12:30 PM EST) Fibrinogen 211 200 - 393 mg/dL 06/14/2024 12:57 PM EST [facility] Comment: A fibrinogen level >100 mg/dL is adequate for hemostasis in most patients without underlying bleeding disorders. Blood ARTERIAL BLOOD / Unknown 06/14/2024 12:30 PM EST 06/14/2024 12:42 PM EST Comment:Pre-op diagnosis: CAD Bobby Loja MD HEMATOLOGY ORDERABLE S [facility] [place] [address] * (ABNORMAL) Blood Gas, Arterial POC (06/14/2024 12:15 PM EST) pH, Arterial 7.38 7.35 - 7.45 06/14/2024 12:16 PM EST [facility] PCO2, Arterial 40 35 - 45 mmHg 06/14/2024 12:16 PM [facility] Bicarbonate, Arterial 22.9 20.0 - 26.0 mmol/L 06/14/2024 12:16 PM [facility] Base Excess, Arterial -2.3 -3.0 - 3.0 mmol/L 06/14/2024 12:16 PM [facility] Hemoglobin, Arterial 11.4(L) 13.7 [...] MD POINT OF CARE TEST O RDERABLES [facility] [place] [address] * (ABNORMAL) Blood Gas, Arterial POC (06/14/2024 11:51 AM EST) pH, Arterial 7.40 7.35 - 7.45 06/14/2024 11:52 AM [facility] PCO2, Arterial 41 35 [...] MD POINT OF CARE TEST O RDERABLES [facility] [place] [address] * (ABNORMAL) Blood Gas, Arterial POC (06/14/2024 [...] MD POINT OF CARE TEST O RDERABLES [facility] [place] [address] * (ABNORMAL) Scan, Peripheral Blood (06/14/2024 11:23 AM EST) RBC Morphology Abnormal 06/14/2024 11:59 AM EST [facility] Platelet Estimate Decreased(A) Normal 06/14/2024 11:59 AM EST [facility] [place] cells 1-5 /HPF 06/14/2024 11:59 AM EST [facility] Blood ARTERIAL BLOOD / Unknown 06/14/2024 11:23 AM EST 06/14/2024 11:27 AM EST Bobby Loja MD HEMATOLOGY ORDERABLE S [facility] [place] [address] * (ABNORMAL) Platelet count (06/14/2024 11:23 AM EST) Platelet 86(L) 145 - 357 x10(3)/mcL 06/14/2024 11:59 AM EST [facility] Blood ARTERIAL BLOOD / Unknown 06/14/2024 11:23 AM EST Comment:Pre-op diagnosis: CAD Bobby Loja MD HEMATOLOGY ORDERABLE S [facility] [place] [address] * (ABNORMAL) Hemoglobin and Hematocrit, blood (06/14/2024 11:23 AM EST) Hemoglobin 9.8(L) 13.7 - 16.5 g/dL 06/14/2024 11:59 AM EST [facility] Comment:This result has been called to Danielle López by Satya Page on 06/14/2024 11:58:33. Hematocrit 30.5(L) 40.5 - 48.5 % 06/14/2024 11:59 AM EST [facility] Comment:This result has been called to Danielle López by Satya Page on 06/14/2024 11:58:40, and has been read back. Blood ARTERIAL BLOOD / Unknown 06/14/2024 11:23 AM EST 06/14/2024 11:27 AM EST Comment:Pre-op diagnosis: CAD Bobby Loja MD HEMATOLOGY ORDERABLE S [facility] [place] [address] * (ABNORMAL) Blood Gas, Arterial POC (06/14/2024 10:58 AM EST) pH, Arterial 7.38 7.35 - 7.45 06/14/2024 10:59 AM [facility] PCO2, Arterial 43 35 - 45 mmHg 06/14/2024 10:59 AM [facility] PO2, Arterial 401(H) 85 - 104 mmHg 06/14/2024 10:59 AM [facility] Bicarbonate, Arterial 24.8 20.0 [...] MD POINT OF CARE TEST O RDERABLES [facility] [place] [address] * (ABNORMAL) Blood Gas, Arterial POC (06/14/2024 [...] MD POINT OF CARE TEST O NIKA [facility] [place] [address] * (ABNORMAL) Blood Gas, Arterial POC (06/14/2024 [...] - 1.33 mmol/L 06/14/2024 10:26 AM EST [facility] Glucose, Arterial 148 65 - 199 mg/dL 06/14/2024 10:26 AM EST [facility] Comment:Glucose Concentratio n >=200 mg/dL plus symptoms is consistent with Diabetes Mellitus. Blood ARTERIAL BLOOD / Unknown 06/14/2024 10:25 AM EST 06/14/2024 10:26 AM EST Haja Byrnes MD POINT OF CARE TEST O RDERABLES Performing Organization Address City/State/[facility] Co de Phone Number [facility] [place] [address] * Surgical Pathology (06/14/2024 9:53 AM EST) Case Report Surgical Pathology Report ? Case: [id number] ? Authorizing Provider: ??Bobby Loja MD ? [...] Inking: External surface inked black Sections/Process ing: Piccolo Mechanic sections in 4 cassettes labeled A1-A4. cmk B. Heart, Atrial Appendage, Left, . B - Labeled/Fixative : Heart, atrial appendage, left, fresh. Quantity/Size: Single, 3.3 x 1.5 x 0.8 cm. Tissue Description: Portion of heart tissue consisting of rodriguez-white, semitranslucent, smooth endocardium with rodriguez-brown muscular myocardium and thin translucent epicardium with adherent adipose tissue. No areas of discoloration identified. Sections/Process ing: Piccolo Mechanic sections in 1 cassette labeled B1. cmk 06/18/2024 10:18 AM EST [facility] Result Note Routine 06/18/2024 10:18 AM [facility] Tissue SOFT TISSUE MASS / Unknown 06/14/2024 9:53 AM EST 06/14/2024 2:13 PM EST Comment:Mediastinal mass Tissue specimen (specimen) LEFT ATRIAL APPENDAGE ABSENT / Unknown 06/14/2024 10:54 AM EST 06/14/2024 2:13 PM EST Comment:MARIALUISA Bobby Loja MD PATHOLOGY/CYTOLOGY O RDERABLES [facility] [place] [address] * Cooximetry, POC (06/14/2024 9:00 AM EST) pO2, Coox 57 mmHg 06/14/2024 9:04 AM [facility] PO2 Corrected, COOX 50 mmHg 06/14/2024 9:04 AM [facility] Hemoglobin, Coox 14.3 13.7 - 16.5 g/dL 06/14/2024 9:04 AM [facility] Oxyhemoglobin, Coox 86.2 % 06/14/2024 9:04 AM [facility] Carboxyhemoglobi n, Coox 0.3 % 06/14/2024 9:04 AM [facility] Comment: Nonsmokers: 0.5-1.5% COHB ?? Smokers: Variable ??but usually less than 10% ?? Toxic: 20-30% COHB ?? Lethal: Greater than 60% COHB Methemoglobin, Coox 0.3 <=1.5 % 06/14/2024 9:04 AM [facility] Temperature Coox 35.2 C 06/14/20 24 9:04 AM [facility] Blood (Mixed Venous) 06/14/2024 9:00 AM EST 06/14/2024 9:04 AM EST Haja Byrnes MD POINT OF CARE TEST O RDERABLES [facility] [place] [address] * (ABNORMAL) Blood Gas, Arterial POC (06/14/2024 [...] 0.3 <=1.5 % 06/14/2024 8:40 AM EST [facility] Sodium, Arterial 136 135 - 145 mmol/L 06/14/2024 8:40 AM [facility] Potassium, Arterial 4.2 3.5 - 5.0 mmol/L 06/14/2024 8:40 AM EST [facility] Chloride, Arterial 102 98 - 107 mmol/L 06/14/2024 8:40 AM EST [facility] Lactate, Arterial 0.9 0.5 - 2.2 mmol/L 06/14/2024 8:40 AM [facility] IONIZED CALCIUM, ARTERIAL 1.17 1.15 - 1.33 mmol/L 06/14/2024 8:40 AM [facility] Glucose, Arterial 121 65 - 199 mg/dL 06/14/2024 8:40 AM [facility] Comment:Glucose Concentratio n >=200 mg/dL plus symptoms is consistent with Diabetes Mellitus. Blood ARTERIAL BLOOD / Unknown 06/14/2024 8:39 AM EST 06/14/2024 8:40 AM EST Haja Byrnes MD POINT OF CARE TEST O RDERABLES Performing Organization Address City/State/[facility] Co de Phone Number [facility] [place] [address] * Transesophageal Echo/OR (06/14/2024 7:20 AM EST) Anatomical Region Laterality Modality Cardiac Other 06/14/2024 7:20 AM EST Narrative 06/14/2024 4:36 PM EST Version: 2 Study ID: [id number] [address] [id number] ?OR Transesophageal Echo Report Name: GEORGE MEHTA [...] of this mass after consultation with other lotus notes administrator experts and the decision was made by [...] MD - 06/14/2024 Version: 2 Study ID: [id number] [address] [place] [id number] ORTransesophageal Echo Report Name: GEORGE MEHTA Study [...] of this mass after consultation with other lotus notes administrator experts and thedecision was made by surgeon [...] - 199 mg/dL 06/14/2024 7:12 AM EST [facility] Comment:Supplemental ranges: <140 mg/dL before meals <180 mg/dL all other times of the day. Blood CAPILLARY BLOOD / Unknown 06/14/2024 7:11 AM EST 06/14/2024 7:12 AM EST Haja Byrnes MD POINT OF CARE TEST O RDERABLES [facility] [place] [address] * POC, GLUCOSE (06/14/2024 4:30 AM EST) Glucometer, POC 85 65 - 199 mg/dL 06/14/2024 4:30 AM EST [facility] Comment:Supplemental ranges: <140 mg/dL before meals <180 mg/dL all other times of the day. Blood CAPILLARY BLOOD / Unknown 06/14/2024 4:30 AM EST 06/14/2024 4:30 AM EST Haja Byrnes MD POINT OF CARE TEST O RDERABLES Performing Organization Address City/[facility]/ZIP Co de Phone Number [facility] [place] [address] * (ABNORMAL) Heparin (unfractionated) Level (06/14/2024 12:12 AM EST) UF Heparin 1.02([facility]) IU/mL 06/14/2024 12:46 AM EST [facility] Comment: Heparin (anti-Xa) levels [...] Performing Organization Address City/[facility]/ZIP Co de Phone Number [facility] [place] [address] * (ABNORMAL) CBC (with Diff) (06/14/2024 12:12 [...] 6.10 x10(3)/mc L 06/14/2024 12:38 AM EST [facility] Lymph % 26.8 % [...] EST Shahnaz Scanlon MD HEMATOLOGY ORDERABLE S [facility] [place] [address] * Magnesium (06/14/2024 12:12 AM EST) Magnesium 0.74 0.69 - 1.07 mMol/L 06/14/2024 12:57 AM [facility] Blood VENOUS BLOOD SPECIMEN / Unknown Venipuncture / Unknown 06/14/2024 12:12 AM EST 06/14/2024 12:29 AM EST Shahnaz Scanlon MD CHEMISTRY ORDERABLES [facility] [place] [address] * (ABNORMAL) Basic Metabolic Panel (06/14/2024 12:12 AM EST) Glucose 97 65 - 199 mg/dL 06/14/2024 12:57 AM [facility] Comment:Glucose Concentratio n >=200 mg/dL plus symptoms is consistent with Diabetes Mellitus. Blood Urea Nitrogen 25(H) 10 - 20 mg/dL 06/14/2024 12:57 AM [facility] Creatinine 1.14 0.80 - [...] Scanlon MD CHEMISTRY ORDERABLES Performing Organization Address [facility]/ZIP Co de Phone Number [facility] [place] [address] * Scan Doc: Implantable Devices (06/14/2024 12:00 AM EST) Narrative 06/14/2024 12:00 AM EST Ordered by an unspecified provider. Scanning Provider MEDIA MGR SCAN EXT O RDR/RSLT * POC, GLUCOSE (06/13/2024 11:12 PM EST) Glucometer, POC 104 65 - 199 mg/dL 06/13/2024 11:13 PM EST [facility] Comment:Supplemental ranges: <140 mg/dL before meals <180 mg/dL all other times of the day. Blood CAPILLARY BLOOD / Unknown 06/13/2024 11:12 PM EST 06/13/2024 11:13 PM EST Haja Byrnes MD POINT OF CARE TEST O RDERABLES Performing Organization Address City/[facility]/ZIP Co de Phone Number [facility] [place] [address] * (ABNORMAL) POC, GLUCOSE (06/13/2024 8:03 PM EST) Glucometer, POC 206(H) 65 - 199 mg/dL 06/13/2024 8:03 PM EST [facility] Comment:Supplemental ranges: <140 mg/dL before meals <180 mg/dL all other times of the day. Blood CAPILLARY BLOOD / Unknown 06/13/2024 8:03 PM EST 06/13/2024 8:03 PM EST Haja Byrnes MD POINT OF CARE TEST O RDERABLES Performing Organization Address City/[facility]/ZIP Co de Phone Number [facility] [place] [address] * Heparin (unfractionated) Level (06/13/2024 4:11 PM EST) UF Heparin 0.76 IU/mL 06/13/2024 4:24 PM EST [facility] Comment: Heparin (anti-Xa) levels [...] EST Shahnaz Scanlon MD HEMATOLOGY ORDERABLE S [facility] [place] [address] * ABORH RECHECK (06/13/2024 4:11 PM EST) ABORH Recheck O POSITIVE 06/13/2024 4:50 PM EST [facility] Blood VENOUS BLOOD SPECIMEN / Unknown Venipuncture / Unknown 06/13/2024 4:11 PM EST 06/13/2024 4:19 PM EST Haja Byrnes MD BLOOD BANK LAB ORDER [place] [facility] [place] [address] * (ABNORMAL) POC, GLUCOSE (06/13/2024 4:09 PM EST) [facility] Glucometer, POC 216(H) 65 - 199 mg/dL 06/13/2024 4:10 PM EST [facility] Comment:Supplemental ranges: <140 mg/dL before meals <180 mg/dL all other times of the day. Blood CAPILLARY BLOOD / Unknown 06/13/2024 4:09 PM EST 06/13/2024 4:10 PM EST Haja Byrnes MD POINT OF CARE TEST O RDERABLES [facility] [place] [address] * [place] and screen [place] [place] (06/13/2024 11:53 AM EST) ABORH Type O POSITIVE 06/13/2024 1:16 PM EST [facility] PATIENT HISTORY Not Found 06/13/2024 1:16 PM EST [facility] Expires at [id number] on: 06/16/2024 06/13/2024 1:16 PM EST [facility] ANTIBODY SCREEN AUTOMATED Negative 06/13/2024 1:16 PM EST [facility] T&S only valid at [facility] 06/13/2024 1:16 PM EST [facility] Blood VENOUS BLOOD SPECIMEN / Unknown Venipuncture / Unknown 06/13/2024 11:53 AM EST 06/13/2024 11:56 AM EST Narrative [facility] BLOOD BANK LABORATORY - 06/13/2024 1:16 PM EST This Type and Screen result is only valid at the [facility] Haja Byrnes MD BLOOD BANK LAB ORDER [place]SE[place] Performing Organization Address [facility] Co de Phone Number [facility] [place] [address] * POC, GLUCOSE (06/13/2024 11:50 AM EST) Glucometer, POC 178 65 - 199 mg/dL 06/13/2024 11:51 AM EST [facility] Comment:Supplemental ranges: <140 mg/dL before meals <180 mg/dL all other times of the day. Blood CAPILLARY BLOOD / Unknown 06/13/2024 11:50 AM EST 06/13/2024 11:51 AM EST Haja Byrnes MD POINT OF CARE TEST O RDERABLES Performing Organization Address [facility] de Phone Number [facility] [place] [address] * XR Chest One View (06/13/2024 10:35 AM EST) WORKSTATION ID [id number] [facility] Anatomical Region Laterality Modality Chest [...] have questions please contact the health rn wound care that requested your imaging first. ? [...] who have questions please contactthe health rn wound care that requested your imaging first. Haja Byrnes MD IMG DX ORDERABLES * CARDIAC CATHETERIZATION (06/13/2024 9:02 AM EST) Anatomical Region Laterality Modality Other Narrative 06/15/2024 9:07 AM EST ?[facility] ? Cardiac Catheterization/Intervention Report ? Patient Name: Tyson, George L. ? Procedure Date: 06/13/2024 ? A #: [id number] ? Primary Physician: Nuha Shen I ? Case #: [id number] ? File Name: [id number] ? Catheterization Order Number: [id number] ? [facility] ? Final Report [place], [place] ? Patient Name: ? George LViry Mehta ? ID#: ?[id number] ? : ?1955 ? Procedure Date: ? June 13, 2024 ?Case #: ? [id number] ? Room: ? 6 ? Case Physician: [...] ?was designated as ASA Class IV. The [facility] clinical frailty scale is 5: [...] was Urgent. The indication for ?the lab[facility] visit is ACS greater than 24 hrs [...] vascular ?ultrasound and IABP insertion in laborer [facility] house. ? Nuha Shen M.D. ? Electronically Signed by: Nuha Shen M.D. ? Report Finalized: 06/15/2024 ??08:59 ? Procedure Note Nuha Shen MD - 06/15/2024 [facility] Cardiac Catheterization/Intervention Report Patient Name: George MehtaViry Procedure Date: 06/13/2024 A #: [id number] Primary Physician: Nuha Shen I Case #: [id number] File Name: [id number] Catheterization Order Number: [id number] [facility] FinalReport [place], [place] Patient Name: George Mehta ID#:[id number] :1955 Procedure Date: June 13, 2024 Case [...] was designated as ASA Class IV. The [facility] clinical frailty scale is5: Mildly [...] procedure was Urgent. The indicationfor the laborer hide house visit is ACS greater than 24 hrs [...] angiography,vascular ultrasound and IABP insertion in laborer hide house. Nuha Shen M.D. Electronically Signed by: Nuha Shen M.D. Report Finalized: 06/15/2024 08:59 Nuha Rojo MD CARDIAC CATH ORDERA BLES * Potassium (06/13/2024 7:48 AM EST) Potassium 4.5 3.5 - 5.0 mMol/L 06/13/2024 8:28 AM EST [facility] Blood VENOUS BLOOD SPECIMEN / Unknown Venipuncture / Unknown 06/13/2024 7:48 AM EST 06/13/2024 7:55 AM EST Shahnaz Scanlon MD CHEMISTRY ORDERABLES [facility] [place] [address] * POC, GLUCOSE (06/13/2024 7:41 AM EST) Glucometer, POC 126 65 - 199 mg/dL 06/13/2024 7:41 AM EST [facility] Comment:Supplemental ranges: <140 mg/dL before meals <180 mg/dL all other times of the day. Blood CAPILLARY BLOOD / Unknown 06/13/2024 7:41 AM EST 06/13/2024 7:41 AM EST Ethel Carrillo MD POINT OF CARE TEST O NIKA Performing Organization Address [facility]/ZIP Co de Phone Number [facility] [place] [address] * POC, GLUCOSE (06/13/2024 3:25 AM EST) Glucometer, POC 99 65 - 199 mg/dL 06/13/2024 3:25 AM EST [facility] Comment:Supplemental ranges: <140 mg/dL before meals <180 mg/dL all other times of the day. Blood CAPILLARY BLOOD / Unknown 06/13/2024 3:25 AM EST 06/13/2024 3:25 AM EST Ethel Carrillo MD POINT OF CARE TEST Abimael MAHER Performing Organization Address City/[facility]/ZIP Co de Phone Number [facility] [place] [address] * Heparin (unfractionated) Level (06/13/2024 2:26 AM EST) UF Heparin 0.60 IU/mL 06/13/2024 3:32 AM EST [facility] Comment: Heparin (anti-Xa) levels [...] MD HEMATOLOGY ORDERABLE S Performing Organization Address City/State/[facility] Co de Phone Number [facility] [place] [address] * (ABNORMAL) CBC (with Diff) (06/13/2024 2:26 AM EST) White Blood Cell 9.98(H) 4.00 - 9.50 x10(3)/mc L 06/13/2024 2:41 AM EST [facility] Red Blood Cell 5.11 4.58 - 5.54 x10(6)/mc L 06/13/2024 2:41 AM EST [facility] Hemoglobin 15.3 13.7 - [...] - 35.7 g/dL 06/13/2024 2:41 AM EST [facility] Platelet 194 145 - [...] [facility] Lymph % 35.3 % 06/13/2024 2:41 AM [facility] Lymph Absolute 3.52(H) 0.90 - 3.20 x10(3)/mc L 06/13/2024 2:41 AM [facility] Monocyte % 10.1 % 06/13/2024 2:41 AM [facility] Monocyte Absolute 1.01(H) 0.30 - 0.90 x10(3)/mc L 06/13/2024 2:41 AM [facility] Eos % 4.4 % [...] 0.10 x10(3)/mc L 06/13/2024 2:41 AM EST [facility] Immature Gran % 0.5 % 2:41 AM [facility] Immature Gran Absolute 0.05(H) 0.00 - 0.04 x10(3)/mc L 06/13/2024 2:41 AM EST [facility] Blood VENOUS BLOOD SPECIMEN / Unknown Venipuncture / Unknown 06/13/2024 2:26 AM EST 06/13/2024 2:32 AM EST Shahnaz Scanlon MD HEMATOLOGY ORDERABLE S [facility] [place] [address] * Magnesium (06/13/2024 2:26 AM EST) Magnesium 0.78 0.69 - 1.07 mMol/L 06/13/2024 2:58 AM [facility] Blood VENOUS BLOOD SPECIMEN / Unknown Venipuncture / Unknown 06/13/2024 2:26 AM EST 06/13/2024 2:31 AM EST Shahnaz Scanlon MD CHEMISTRY ORDERABLES [facility] [place] [address] * (ABNORMAL) Basic Metabolic Panel (06/13/2024 2:26 AM EST) Glucose 121 65 - 199 mg/dL 06/13/2024 2:58 AM EST [facility] Comment:Glucose Concentratio n >=200 mg/dL plus symptoms is consistent with Diabetes Mellitus. Blood Urea Nitrogen 21(H) 10 - 20 mg/dL 06/13/2024 2:58 AM EST [facility] Creatinine 1.07 0.80 - [...] AM EST Shahnaz Scanlon MD CHEMISTRY ORDERABLES [facility] [place] [address] * POC, GLUCOSE (06/12/2024 11:53 PM EST) [facility] Signature Glucometer, POC 141 65 - 199 mg/dL 06/12/2024 11:54 PM EST [facility] Comment:Supplemental ranges: <140 mg/dL before meals <180 mg/dL all other times of the day. Blood CAPILLARY BLOOD / Unknown 06/12/2024 11:53 PM EST 06/12/2024 11:54 PM EST Ethel Carrillo MD POINT OF CARE TEST O NIKA Performing Organization Address City/[facility]/ZIP Co de Phone Number [facility] [place] [address] * POC, GLUCOSE (06/12/2024 7:32 PM EST) Glucometer, POC 158 65 - 199 mg/dL 06/12/2024 7:32 PM EST [facility] Comment:Supplemental ranges: <140 mg/dL before meals <180 mg/dL all other times of the day. Blood CAPILLARY BLOOD / Unknown 06/12/2024 7:32 PM EST 06/12/2024 7:32 PM EST Ethel Carrillo MD POINT OF CARE TEST O NIKA Performing Organization Address [facility] Co de Phone Number [facility] [place] [address] * POC, GLUCOSE (06/12/2024 3:41 PM EST) Glucometer, POC 113 65 - 199 mg/dL 06/12/2024 3:41 PM EST [facility] Comment:Supplemental ranges: <140 mg/dL before meals <180 mg/dL all other times of the day. Blood CAPILLARY BLOOD / Unknown 06/12/2024 3:41 PM EST 06/12/2024 3:41 PM EST Ethel Carrillo MD POINT OF CARE TEST O NIKA Performing Organization Address City/[facility] Co de Phone Number [facility] [place] [address] * Potassium (06/12/2024 2:19 PM EST) Potassium 4.5 3.5 - 5.0 mMol/L 06/12/2024 2:45 PM EST [facility] Blood VENOUS BLOOD SPECIMEN / Unknown Venipuncture / Unknown 06/12/2024 2:19 PM EST 06/12/2024 2:23 PM EST Shahnaz Scanlon MD CHEMISTRY ORDERABLES [facility] [place] [address] * (ABNORMAL) POC, GLUCOSE (06/12/2024 11:21 AM EST) Glucometer, POC 207(H) 65 - 199 mg/dL 06/12/2024 11:21 AM EST [facility] Comment:Supplemental ranges: <140 mg/dL before meals <180 mg/dL all other times of the day. Blood CAPILLARY BLOOD / Unknown 06/12/2024 11:21 AM EST 06/12/2024 11:22 AM EST Ethel Carrillo MD POINT OF CARE TEST O RDERABLES [facility] [place] [address] * POC, GLUCOSE (06/12/2024 8:00 AM EST) Glucometer, POC 169 65 - 199 mg/dL 06/12/2024 8:01 AM EST [facility] Comment:Supplemental ranges: <140 mg/dL before meals <180 mg/dL all other times of the day. Blood CAPILLARY BLOOD / Unknown 06/12/2024 8:00 AM EST 06/12/2024 8:01 AM EST Ethel Carrillo MD POINT OF CARE TEST O RDERABLES [facility] [place] [address] * POC, GLUCOSE (06/12/2024 4:25 AM EST) Pathologist [facility] Glucometer, POC 132 65 - 199 mg/dL 06/12/2024 4:26 AM EST [facility] Comment:Supplemental ranges: <140 mg/dL before meals <180 mg/dL all other times of the day. Blood CAPILLARY BLOOD / Unknown 06/12/2024 4:25 AM EST 06/12/2024 4:26 AM EST Ethel Carrillo MD POINT OF CARE TEST O RDERABLES Performing Organization Address [facility] Co de Phone Number [facility] [place] [address] * Heparin (unfractionated) Level (06/12/2024 3:03 AM EST) [facility] UF Heparin 0.55 IU/mL 06/12/2024 3:44 AM EST [facility] Comment: Heparin (anti-Xa) levels [...] MD HEMATOLOGY ORDERABLE S Performing Organization Address [facility] Co de Phone Number [facility] [place] [address] * (ABNORMAL) CBC (with Diff) (06/12/2024 3:03 AM EST) [facility] White Blood Cell 9.69(H) 4.00 - 9.50 x10(3)/mc L 06/12/2024 3:36 AM [facility] Red Blood Cell 5.05 4.58 - 5.54 x10(6)/mc L 06/12/2024 3:36 AM [facility] Hemoglobin 15.2 13.7 - 16.5 g/dL 06/12/2024 3:36 AM [facility] Hematocrit 46.6 40.5 - [...] EST Shahnaz Scanlon MD HEMATOLOGY ORDERABLE S [facility] [place] [address] * Magnesium (06/12/2024 3:03 AM EST) Magnesium 0.79 0.69 - 1.07 mMol/L 06/12/2024 4:01 AM [facility] Blood VENOUS BLOOD SPECIMEN / Unknown Venipuncture / Unknown 06/12/2024 3:03 AM EST 06/12/2024 3:30 AM EST Shahnaz Scanlon MD CHEMISTRY ORDERABLES [facility] [place] [address] * (ABNORMAL) Basic Metabolic Panel (06/12/2024 3:03 [...] Scanlon MD CHEMISTRY ORDERABLES Performing Organization Address [facility] Co de Phone Number [facility] [place] [address] * POC, GLUCOSE (06/11/2024 11:56 PM EST) Glucometer, POC 135 65 - 199 mg/dL 06/11/2024 11:56 PM EST [facility] Comment:Supplemental ranges: <140 mg/dL before meals <180 mg/dL all other times of the day. Blood CAPILLARY BLOOD / Unknown 06/11/2024 11:56 PM EST 06/11/2024 11:56 PM EST Ethel Carrillo MD POINT OF CARE TEST O RDERABLES Performing Organization Address [facility]/ZIP Co de Phone Number [facility] [place] [address] * (ABNORMAL) POC, GLUCOSE (06/11/2024 8:25 PM EST) Glucometer, POC 210(H) 65 - 199 mg/dL 06/11/2024 8:26 PM EST [facility] Comment:Supplemental ranges: <140 mg/dL before meals <180 mg/dL all other times of the day. Blood CAPILLARY BLOOD / Unknown 06/11/2024 8:25 PM EST 06/11/2024 8:26 PM EST Ethel Carrillo MD POINT OF CARE TEST O NIKA Performing Organization Address [facility] Co de Phone Number [facility] [place] [address] * POC, GLUCOSE (06/11/2024 4:24 PM EST) Glucometer, POC 81 65 - 199 mg/dL 06/11/2024 4:24 PM EST [facility] Comment:Supplemental ranges: <140 mg/dL before meals <180 mg/dL all other times of the day. Blood CAPILLARY BLOOD / Unknown 06/11/2024 4:24 PM EST 06/11/2024 4:25 PM EST Ethel Carrillo MD POINT OF CARE TEST O NIKA Performing Organization Address [facility] de Phone Number [facility] [place] [address] * (ABNORMAL) POC, GLUCOSE (06/11/2024 11:08 AM EST) Glucometer, POC 233(H) 65 - 199 mg/dL 06/11/2024 11:08 AM EST [facility] Comment:Supplemental ranges: <140 mg/dL before meals <180 mg/dL all other times of the day. Blood CAPILLARY BLOOD / Unknown 06/11/2024 11:08 AM EST 06/11/2024 11:08 AM EST Ethel Carrillo MD POINT OF CARE TEST O NIKA Performing Organization Address [facility] Co de Phone Number [facility] [place] [address] * POC, GLUCOSE (06/11/2024 7:48 AM EST) Glucometer, POC 184 65 - 199 mg/dL 06/11/2024 7:49 AM EST [facility] Comment:Supplemental ranges: <140 mg/dL before meals <180 mg/dL all other times of the day. Blood CAPILLARY BLOOD / Unknown 06/11/2024 7:48 AM EST 06/11/2024 7:49 AM EST Melida Valdes MD POINT OF CARE TEST O RDERABLES Performing Organization Address City/[facility]/ZIP Co de Phone Number [facility] [place] [address] * Heparin (unfractionated) Level (06/11/2024 5:31 AM EST) UF Heparin 0.55 IU/mL 06/11/2024 6:10 AM EST [facility] Comment: Heparin (anti-Xa) levels [...] EST Shahnaz Scanlon MD HEMATOLOGY ORDERABLE S [facility] [place] [address] * POC, GLUCOSE (06/11/2024 3:57 AM EST) Glucometer, POC 132 65 - 199 mg/dL 06/11/2024 3:58 AM [facility] Comment:Supplemental ranges: <140 mg/dL before meals <180 mg/dL all other times of the day. Blood CAPILLARY BLOOD / Unknown 06/11/2024 3:57 AM EST 06/11/2024 3:58 AM EST Melida Valdes MD POINT OF CARE TEST O RDERABLES [facility] [place] [address] * (ABNORMAL) CBC (with Diff) (06/11/2024 2:13 AM EST) White Blood Cell 9.91(H) 4.00 - 9.50 x10(3)/mc L 06/11/2024 2:26 AM [facility] Red Blood Cell 5.13 [...] 0.04 x10(3)/mc L 06/11/2024 2:26 AM EST [facility] Blood VENOUS BLOOD SPECIMEN / Unknown Venipuncture / Unknown 06/11/2024 2:13 AM EST 06/11/2024 2:19 AM EST Shahnaz Scanlon MD HEMATOLOGY ORDERABLE S Performing Organization Address City/[facility]/ZIP Co de Phone Number [facility] [place] [address] * Magnesium (06/11/2024 2:13 AM EST) Magnesium 0.83 0.69 - 1.07 mMol/L 06/11/2024 2:51 AM [facility] Blood VENOUS BLOOD SPECIMEN / Unknown Venipuncture / Unknown 06/11/2024 2:13 AM EST 06/11/2024 2:19 AM EST Shahnaz Scanlon MD CHEMISTRY ORDERABLES [facility] [place] [address] * (ABNORMAL) Basic Metabolic Panel (06/11/2024 2:13 AM EST) Glucose 148 65 - 199 mg/dL 06/11/2024 2:51 AM [facility] Comment:Glucose Concentratio n >=200 mg/dL plus symptoms is consistent with Diabetes Mellitus. Blood Urea Nitrogen 24(H) 10 - 20 mg/dL 06/11/2024 2:51 AM EST [facility] Creatinine 1.06 0.80 - 1.50 mg/dL 06/11/2024 2:51 AM [facility] Sodium 134(L) 135 - 145 mMol/L 06/11/2024 2:51 AM [facility] Potassium 4.1 3.5 - 5.0 mMol/L 06/11/2024 2:51 AM [facility] Chloride 96(L) 98 - 107 mMol/L 06/11/2024 2:51 AM EST [facility] Carbon Dioxide 28 22 [...] m?? 06/11/2024 2:51 AM [facility] [...] AM EST Shahnaz Scanlon MD CHEMISTRY ORDERABLES [facility] [place] [address] * POC, GLUCOSE (06/11/2024 12:50 AM EST) Glucometer, POC 144 65 - 199 mg/dL 06/11/2024 12:51 AM EST [facility] Comment:Supplemental ranges: <140 mg/dL before meals <180 mg/dL all other times of the day. Blood CAPILLARY BLOOD / Unknown 06/11/2024 12:50 AM EST 06/11/2024 12:51 AM EST Melida Valdes MD POINT OF CARE TEST O NIKA [facility] [place] [address] * (ABNORMAL) POC, GLUCOSE (06/10/2024 7:22 PM EST) Glucometer, POC 236(H) 65 - 199 mg/dL 06/10/2024 7:22 PM EST [facility] Comment:Supplemental ranges: <140 mg/dL before meals <180 mg/dL all other times of the day. Blood CAPILLARY BLOOD / Unknown 06/10/2024 7:22 PM EST 06/10/2024 7:22 PM EST Melida Valdes MD POINT OF CARE TEST Abimael MAHER Performing Organization Address [facility]/ZIP Co de Phone Number [facility] [place] [address] * (ABNORMAL) Blood Gas, Venous (06/10/2024 5:42 PM EST) pH, Venous 7.34 7.32 - 7.42 06/10/2024 5:50 PM EST [facility] PCO2, Venous 52 38 [...] [facility] Blood Gas Source Venous 06/10/20 5:50 PM [facility] Blood VENOUS BLOOD SPECIMEN / Unknown Blood Gas Venous / Unknown 06/10/2024 5:42 PM EST 06/10/2024 5:47 PM EST Melida Valdes MD CHEMISTRY ORDERABLES [facility] [place] [address] * POC, GLUCOSE (06/10/2024 5:35 PM EST) [facility] Signature Glucometer, POC 123 65 - 199 mg/dL 06/10/2024 5:35 PM [facility] Comment:Supplemental ranges: <140 mg/dL before meals <180 mg/dL all other times of the day. Blood CAPILLARY BLOOD / Unknown 06/10/2024 5:35 PM EST 06/10/2024 5:35 PM EST Melida Valdes MD POINT OF CARE TEST O NIKA Performing Organization Address City/[facility]/ZIP Co de Phone Number [facility] [place] [address] * (ABNORMAL) POC, GLUCOSE (06/10/2024 11:25 AM EST) Glucometer, POC 216(H) 65 - 199 mg/dL 06/10/2024 11:25 AM EST [facility] Comment:Supplemental ranges: <140 mg/dL before meals <180 mg/dL all other times of the day. Blood CAPILLARY BLOOD / Unknown 06/10/2024 11:25 AM EST 06/10/2024 11:25 AM EST Melida Valdes MD POINT OF CARE TEST O NIKA Performing Organization Address [facility] Co de Phone Number [facility] [place] [address] * (ABNORMAL) POC, GLUCOSE (06/10/2024 7:46 AM EST) Glucometer, POC 206(H) 65 - 199 mg/dL 06/10/2024 7:46 AM EST [facility] Comment:Supplemental ranges: <140 mg/dL before meals <180 mg/dL all other times of the day. Blood CAPILLARY BLOOD / Unknown 06/10/2024 7:46 AM EST 06/10/2024 7:46 AM EST Melida Valdes MD POINT OF CARE TEST O NIKA Performing Organization Address City/[facility] Co de Phone Number [facility] [place] [address] * POC, GLUCOSE (06/10/2024 4:23 AM EST) Glucometer, POC 154 65 - 199 mg/dL 06/10/2024 4:24 AM [facility] Comment:Supplemental ranges: <140 mg/dL before meals <180 mg/dL all other times of the day. Blood CAPILLARY BLOOD / Unknown 06/10/2024 4:23 AM EST 06/10/2024 4:24 AM EST Melida Valdes MD POINT OF CARE TEST O RDERABLES Performing Organization Address City/State/[facility] Co de Phone Number [facility] [place] [address] * (ABNORMAL) CBC (with Diff) (06/10/2024 1:55 AM EST) White Blood Cell 9.00 4.00 - 9.50 x10(3)/mc L 06/10/2024 2:14 AM [facility] Red Blood Cell 5.03 [...] 0.04 x10(3)/mc L 06/10/2024 2:14 AM EST [facility] Blood VENOUS BLOOD SPECIMEN / Unknown Venipuncture / Unknown 06/10/2024 1:55 AM EST 06/10/2024 2:05 AM EST Shahnaz Scanlon MD HEMATOLOGY ORDERABLE S Performing Organization Address City/[facility]/ZIP Co de Phone Number [facility] [place] [address] * Magnesium (06/10/2024 1:55 AM EST) Magnesium 0.83 0.69 - 1.07 mMol/L 06/10/2024 2:37 AM [facility] Blood VENOUS BLOOD SPECIMEN / Unknown Venipuncture / Unknown 06/10/2024 1:55 AM EST 06/10/2024 2:05 AM EST Shahnaz Scanlon MD CHEMISTRY ORDERABLES [facility] [place] [address] * (ABNORMAL) Basic Metabolic Panel (06/10/2024 1:55 [...] Scanlon MD CHEMISTRY ORDERABLES Performing Organization Address City/State/[facility] Co de Phone Number [facility] [place] [address] * Heparin (unfractionated) Level (06/10/2024 1:54 AM EST) UF Heparin 0.56 IU/mL 06/10/2024 2:41 AM [facility] Comment: Heparin (anti-Xa) levels [...] Performing Organization Address City/[facility]/ZIP Co de Phone Number [facility] [place] [address] * POC, GLUCOSE (06/10/2024 12:05 AM EST) Glucometer, POC 125 65 - 199 mg/dL 06/10/2024 12:05 AM EST [facility] Comment:Supplemental ranges: <140 mg/dL before meals <180 mg/dL all other times of the day. Blood CAPILLARY BLOOD / Unknown 06/10/2024 12:05 AM EST 06/10/2024 12:05 AM EST Melida Valdes MD POINT OF CARE TEST O RDERABLES Performing Organization Address City/[facility]/ZIP Co de Phone Number [facility] [place] [address] * POC, GLUCOSE (06/09/2024 8:36 PM EST) Glucometer, POC 197 65 - 199 mg/dL 06/09/2024 8:36 PM EST [facility] Comment:Supplemental ranges: <140 mg/dL before meals <180 mg/dL all other times of the day. Blood CAPILLARY BLOOD / Unknown 06/09/2024 8:36 PM EST 06/09/2024 8:36 PM EST Melida Valdes MD POINT OF CARE TEST O NIKA Performing Organization Address [facility] Co de Phone Number [facility] [place] [address] * POC, GLUCOSE (06/09/2024 5:27 PM EST) Glucometer, POC 174 65 - 199 mg/dL 06/09/2024 5:28 PM EST [facility] Comment:Supplemental ranges: <140 mg/dL before meals <180 mg/dL all other times of the day. Blood CAPILLARY BLOOD / Unknown 06/09/2024 5:27 PM EST 06/09/2024 5:28 PM EST Melida Valdes MD POINT OF CARE TEST O NIKA Performing Organization Address [facility] Co de Phone Number [facility] [place] [address] * (ABNORMAL) POC, GLUCOSE (06/09/2024 11:52 AM EST) Glucometer, POC 211(H) 65 - 199 mg/dL 06/09/2024 11:52 AM EST [facility] Comment:Supplemental ranges: <140 mg/dL before meals <180 mg/dL all other times of the day. Blood CAPILLARY BLOOD / Unknown 06/09/2024 11:52 AM EST 06/09/2024 11:52 AM EST Melida Valdes MD POINT OF CARE TEST O NIKA Performing Organization Address City/[facility] Co de Phone Number [facility] [place] [address] * Potassium (06/09/2024 8:25 AM EST) Potassium 4.6 3.5 - 5.0 mMol/L 06/09/2024 10:09 AM EST [facility] Blood VENOUS BLOOD SPECIMEN / Unknown Venipuncture / Unknown 06/09/2024 8:25 AM EST 06/09/2024 8:42 AM EST Shahnaz Scanlon MD CHEMISTRY ORDERABLES Performing Organization Address [facility] Co de Phone Number [facility] [place] [address] * (ABNORMAL) POC, GLUCOSE (06/09/2024 8:10 AM EST) Glucometer, POC 209(H) 65 - 199 mg/dL 06/09/2024 8:10 AM EST [facility] Comment:Supplemental ranges: <140 mg/dL before meals <180 mg/dL all other times of the day. Blood CAPILLARY BLOOD / Unknown 06/09/2024 8:10 AM EST 06/09/2024 8:11 AM EST Melida Valdes MD POINT OF CARE TEST O RDERABLES Performing Organization Address [facility] Co de Phone Number [facility] [place] [address] * POC, GLUCOSE (06/09/2024 4:40 AM EST) Glucometer, POC 131 65 - 199 mg/dL 06/09/2024 4:40 AM EST [facility] Comment:Supplemental ranges: <140 mg/dL before meals <180 mg/dL all other times of the day. Blood CAPILLARY BLOOD / Unknown 06/09/2024 4:40 AM EST 06/09/2024 4:41 AM EST Melida Valdes MD POINT OF CARE TEST O NIKA Performing Organization Address [facility] Co de Phone Number [facility] [place] [address] * Heparin (unfractionated) Level (06/09/2024 2:12 AM EST) UF Heparin 0.55 IU/mL 06/09/2024 2:33 AM EST [facility] Comment: Heparin (anti-Xa) levels [...] MD HEMATOLOGY ORDERABLE S Performing Organization Address City/State/[facility] Co de Phone Number [facility] [place] [address] * (ABNORMAL) CBC (with Diff) (06/09/2024 2:12 AM EST) White Blood Cell 9.80(H) 4.00 - 9.50 x10(3)/mc L 06/09/2024 2:44 AM EST [facility] Red Blood Cell 5.18 4.58 - 5.54 x10(6)/mc L 06/09/2024 2:44 AM EST [facility] Hemoglobin 15.5 13.7 - 16.5 g/dL 06/09/2024 2:44 AM EST [facility] Hematocrit 47.4 40.5 - 48.5 % 06/09/2024 2:44 AM [facility] Mean Cell Volume 91.5 82.9 - 93.1 fL 06/09/2024 2:44 AM EST [facility] Mean Cell Hemoglobin 29.9 [...] % 0.9 % 06/09/2024 2:44 AM EST [facility] Baso Absolute 0.09 0.00 - 0.10 x10(3)/mc L 06/09/2024 2:44 AM EST [facility] Immature Gran % 0.6 % 2:44 AM [facility] Immature Gran Absolute 0.06(H) 0.00 - 0.04 x10(3)/mc L 06/09/2024 2:44 AM EST [facility] Blood VENOUS BLOOD SPECIMEN / Unknown Venipuncture / Unknown 06/09/2024 2:12 AM EST 06/09/2024 2:21 AM EST Shahnaz Scanlon MD HEMATOLOGY ORDERABLE S Performing Organization Address City/[facility]/ZIP Co de Phone Number [facility] [place] [address] * Magnesium (06/09/2024 2:12 AM EST) Magnesium 0.83 0.69 - 1.07 mMol/L 06/09/2024 2:52 AM [facility] Blood VENOUS BLOOD SPECIMEN / Unknown Venipuncture / Unknown 06/09/2024 2:12 AM EST 06/09/2024 2:22 AM EST Shahnaz Scanlon MD CHEMISTRY ORDERABLES Performing Organization Address City/[facility]/ZIP Co de Phone Number [facility] [place] [address] * (ABNORMAL) Basic Metabolic Panel (06/09/2024 2:12 AM EST) Glucose 147 65 - 199 mg/dL 06/09/2024 2:52 AM [facility] Comment:Glucose Concentratio n >=200 mg/dL plus symptoms is consistent with Diabetes Mellitus. Blood Urea Nitrogen 24(H) 10 - 20 mg/dL 06/09/2024 2:52 AM EST [facility] Creatinine 1.11 0.80 - 1.50 mg/dL 06/09/2024 2:52 AM EST [facility] Sodium 136 135 - 145 mMol/L 06/09/2024 2:52 AM EST [facility] Potassium 3.9 3.5 - 5.0 mMol/L 06/09/2024 2:52 AM EST [facility] Chloride 98 98 - 107 mMol/L 06/09/2024 2:52 AM EST [facility] Carbon Dioxide 27 22 - 31 mMol/L 06/09/2024 2:52 AM EST [facility] Anion Gap 11 5 - 15 mMol/L 06/09/2024 2:52 AM EST [facility] Calcium 9.7 8.5 - 10.5 mg/dL 06/09/2024 2:52 AM EST [facility] Est Glomerular Filtration Rate - Male 73 mL/min/1. 73 m?? 06/09/2024 2:52 AM EST [facility] Comment: This patient's estimated [...] AM EST Shahnaz Scanlon MD CHEMISTRY ORDERABLES [facility] [place] [address] * POC, GLUCOSE (06/09/2024 12:34 AM EST) Glucometer, POC 186 65 - 199 mg/dL 06/09/2024 12:34 AM EST [facility] Comment:Supplemental ranges: <140 mg/dL before meals <180 mg/dL all other times of the day. Blood CAPILLARY BLOOD / Unknown 06/09/2024 12:34 AM EST 06/09/2024 12:34 AM EST Melida Valdes MD POINT OF CARE TEST O NIKA Performing Organization Address City/[facility]/ZIP Co de Phone Number [facility] [place] [address] * POC, GLUCOSE (06/08/2024 8:27 PM EST) Glucometer, POC 176 65 - 199 mg/dL 06/08/2024 8:28 PM EST [facility] Comment:Supplemental ranges: <140 mg/dL before meals <180 mg/dL all other times of the day. Blood CAPILLARY BLOOD / Unknown 06/08/2024 8:27 PM EST 06/08/2024 8:28 PM EST Melida Valdes MD POINT OF CARE TEST O NIKA Performing Organization Address [facility] Co de Phone Number [facility] [place] [address] * POC, GLUCOSE (06/08/2024 4:16 PM EST) Glucometer, POC 159 65 - 199 mg/dL 06/08/2024 4:16 PM EST [facility] Comment:Supplemental ranges: <140 mg/dL before meals <180 mg/dL all other times of the day. Blood CAPILLARY BLOOD / Unknown 06/08/2024 4:16 PM EST 06/08/2024 4:16 PM EST Melida Valdes MD POINT OF CARE TEST O NIKA Performing Organization Address City/[facility]/ZIP Co de Phone Number [facility] [place] [address] * (ABNORMAL) POC, GLUCOSE (06/08/2024 12:35 PM EST) Glucometer, POC 226(H) 65 - 199 mg/dL 06/08/2024 12:35 PM EST [facility] Comment:Supplemental ranges: <140 mg/dL before meals <180 mg/dL all other times of the day. Blood CAPILLARY BLOOD / Unknown 06/08/2024 12:35 PM EST 06/08/2024 12:35 PM EST Melida Valdes MD POINT OF CARE TEST O RDBECKIE Performing Organization Address City/[facility]/ZIP Co de Phone Number [facility] [place] [address] * POC, GLUCOSE (06/08/2024 8:10 AM EST) Glucometer, POC 190 65 - 199 mg/dL 06/08/2024 8:14 AM EST [facility] Comment:Supplemental ranges: <140 mg/dL before meals <180 mg/dL all other times of the day. Blood CAPILLARY BLOOD / Unknown 06/08/2024 8:10 AM EST 06/08/2024 8:14 AM EST Melida Valdes MD POINT OF CARE TEST O RDERAPIETER [facility] [place] [address] * POC, GLUCOSE (06/08/2024 4:09 AM EST) Glucometer, POC 151 65 - 199 mg/dL 06/08/2024 4:10 AM EST [facility] Comment:Supplemental ranges: <140 mg/dL before meals <180 mg/dL all other times of the day. Blood CAPILLARY BLOOD / Unknown 06/08/2024 4:09 AM EST 06/08/2024 4:10 AM EST Melida Valdes MD POINT OF CARE TEST O RDERABLES Performing Organization Address [facility]/ZIP Co de Phone Number [facility] [place] [address] * Heparin (unfractionated) Level (06/08/2024 3:21 AM EST) UF Heparin 0.46 IU/mL 06/08/2024 3:41 AM EST [facility] Comment: Heparin (anti-Xa) levels [...] Performing Organization Address City/[facility]/ZIP Co de Phone Number [facility] [place] [address] * (ABNORMAL) CBC (with Diff) (06/08/2024 3:21 AM EST) White Blood Cell 9.92(H) 4.00 - 9.50 x10(3)/mc L 06/08/2024 3:34 AM EST [facility] Red Blood Cell 5.09 4.58 - 5.54 x10(6)/mc L 06/08/2024 3:34 AM EST [facility] Hemoglobin 15.1 13.7 - [...] EST Shahnaz Scanlon [place] [address] * Magnesium (06/08/2024 3:21 AM EST) Magnesium 0.84 0.69 - 1.07 mMol/L 06/08/2024 3:59 AM [facility] Blood VENOUS BLOOD SPECIMEN / Unknown Venipuncture / Unknown 06/08/2024 3:21 AM EST 06/08/2024 3:27 AM EST Shahanz Scanlon MD CHEMISTRY ORDERABLES [facility] [place] [address] * (ABNORMAL) Basic Metabolic Panel (06/08/2024 3:21 [...] [facility] Anion Gap 12 5 [...] Scanlon MD CHEMISTRY ORDERABLES Performing Organization Address [facility]/ZIP Co de Phone Number [facility] [place] [address] * POC, GLUCOSE (06/07/2024 11:57 PM EST) Glucometer, POC 188 65 - 199 mg/dL 06/07/2024 11:57 PM EST [facility] Comment:Supplemental ranges: <140 mg/dL before meals <180 mg/dL all other times of the day. Blood CAPILLARY BLOOD / Unknown 06/07/2024 11:57 PM EST 06/07/2024 11:58 PM EST Melida Valdes MD POINT OF CARE TEST O NIKA Performing Organization Address [facility] Co de Phone Number [facility] [place] [address] * POC, GLUCOSE (06/07/2024 8:05 PM EST) Glucometer, POC 118 65 - 199 mg/dL 06/07/2024 8:06 PM EST [facility] Comment:Supplemental ranges: <140 mg/dL before meals <180 mg/dL all other times of the day. Blood CAPILLARY BLOOD / Unknown 06/07/2024 8:05 PM EST 06/07/2024 8:06 PM EST Melida Valdes MD POINT OF CARE TEST O NIKA Performing Organization Address City/[facility]/ZIP Co de Phone Number [facility] [place] [address] * Potassium (06/07/2024 5:22 PM EST) Potassium 4.6 3.5 - 5.0 mMol/L 06/07/2024 5:59 PM EST [facility] Blood VENOUS BLOOD SPECIMEN / Unknown Venipuncture / Unknown 06/07/2024 5:22 PM EST 06/07/2024 5:26 PM EST Shahnaz Scanlon MD CHEMISTRY ORDERABLES Performing Organization Address [facility] Co de Phone Number [facility] [place] [address] * POC, GLUCOSE (06/07/2024 4:31 PM EST) Glucometer, POC 174 65 - 199 mg/dL 06/07/2024 4:34 PM EST [facility] Comment:Supplemental ranges: <140 mg/dL before meals <180 mg/dL all other times of the day. Blood CAPILLARY BLOOD / Unknown 06/07/2024 4:31 PM EST 06/07/2024 4:34 PM EST Melida Valdes MD POINT OF CARE TEST O RDERABLES Performing Organization Address [facility] Co de Phone Number [facility] [place] [address] * MRI Cardiac Morphology Function wwo Contrast (06/07/2024 1:10 PM EST) WORKSTATION ID [id number] DH RAD Anatomical Region Laterality Modality Magnetic [...] - Mildly dilated left ventricle size with [id number] decreased LV systolic function. ??LV ejection fraction [...] have questions please contact the health rn wound care that requested your imaging first. ? [...] VENTRICLE: Mildly dilated left ventricle size with twcdyryk-fx-bzbnvdhh decreased LV systolic function. ??LV ejection fraction [...] VENTRICLE: Mildly dilated left ventricle size with mccapude-br-quoklgwh decreasedLV systolic function. LV ejection fraction is [...] - Mildly dilated left ventricle size with vcmkrono-zs-vfgslvwd decreasedLV systolic function. LV ejection fraction is [...] who have questions please contactthe health rn wound care that requested your imaging first. Delroy Fofana MD IMG MRI ORDERABLES * (ABNORMAL) POC, GLUCOSE (06/07/2024 11:05 AM EST) Glucometer, POC 221(H) 65 - 199 mg/dL 06/07/2024 11:06 AM EST [facility] Comment:Supplemental ranges: <140 mg/dL before meals <180 mg/dL all other times of the day. Blood CAPILLARY BLOOD / Unknown 06/07/2024 11:05 AM EST 06/07/2024 11:06 AM EST Melida Valdes MD POINT OF CARE TEST O NIKA Performing Organization Address City/[facility] Co de Phone Number [facility] [place] [address] * (ABNORMAL) POC, GLUCOSE (06/07/2024 11:03 AM EST) [facility] Signature Glucometer, POC 250(H) 65 - 199 mg/dL 06/07/2024 11:04 AM EST [facility] Comment:Supplemental ranges: <140 mg/dL before meals <180 mg/dL all other times of the day. Blood CAPILLARY BLOOD / Unknown 06/07/2024 11:03 AM EST 06/07/2024 11:04 AM EST Melida Valdes MD POINT OF CARE TEST O NIKA [facility] [place] [address] * Potassium (06/07/2024 9:44 AM EST) [facility] Signature Potassium 4.7 3.5 - 5.0 mMol/L 06/07/2024 10:23 AM EST [facility] Blood VENOUS BLOOD SPECIMEN / Unknown Venipuncture / Unknown 06/07/2024 9:44 AM EST 06/07/2024 9:57 AM EST Shahnaz Scanlon MD CHEMISTRY ORDERABLES Performing Organization Address [facility]/ZIP Co de Phone Number [facility] [place] [address] * POC, GLUCOSE (06/07/2024 7:45 AM EST) Glucometer, POC 175 65 - 199 mg/dL 06/07/2024 7:45 AM EST [facility] Comment:Supplemental ranges: <140 mg/dL before meals <180 mg/dL all other times of the day. Blood CAPILLARY BLOOD / Unknown 06/07/2024 7:45 AM EST 06/07/2024 7:46 AM EST Melida Valdes MD POINT OF CARE TEST O RDERABLES Performing Organization Address [facility] Co de Phone Number [facility] [place] [address] * XR Chest PA & Lateral (Generic) (06/07/2024 7:03 AM EST) WORKSTATION ID [id number] RAD Anatomical Region Laterality Modality Chest N/A [...] have questions please contact the health rn wound care that requested your imaging first. ? [...] who have questions please contactthe health rn wound care that requested your imaging first. Shahnaz Scanlon MD IMG DX ORDERABLES * POC, GLUCOSE (06/07/2024 4:25 AM EST) Glucometer, POC 127 65 - 199 mg/dL 06/07/2024 4:26 AM EST [facility] Comment:Supplemental ranges: <140 mg/dL before meals <180 mg/dL all other times of the day. Blood CAPILLARY BLOOD / Unknown 06/07/2024 4:25 AM EST 06/07/2024 4:26 AM EST Melida Valdes MD POINT OF CARE TEST O RDERABLES Performing Organization Address [facility] Co de Phone Number [facility] [place] [address] * Heparin (unfractionated) Level (06/07/2024 2:41 AM EST) Pathologist [facility] UF Heparin 0.45 IU/mL 06/07/2024 3:03 AM EST [facility] Comment: Heparin (anti-Xa) levels [...] Performing Organization Address City/[facility]/ZIP Co de Phone Number [facility] [place] [address] * (ABNORMAL) CBC (with Diff) (06/07/2024 2:41 AM EST) [facility] White Blood Cell 10.06(H) 4.00 - 9.50 x10(3)/mc L 06/07/2024 2:58 AM [facility] Red Blood Cell 5.02 4.58 - 5.54 x10(6)/mc L 06/07/2024 2:58 AM [facility] Hemoglobin 14.8 13.7 - 16.5 g/dL 06/07/2024 2:58 AM [facility] Hematocrit 46.2 40.5 - 48.5 % 06/07/2024 2:58 AM [facility] Mean Cell Volume 92.0 82.9 - 93.1 fL 06/07/2024 2:58 AM [facility] Mean Cell Hemoglobin 29.5 [...] 0.40 x10(3)/mc L 06/07/2024 2:58 AM EST [facility] Basophil % 0.8 % 06/07/2024 2:58 AM [facility] Baso Absolute 0.08 0.00 - 0.10 x10(3)/mc L 06/07/2024 2:58 AM [facility] Immature Gran % 0.6 % 2:58 AM [facility] Immature Gran Absolute 0.06(H) 0.00 - 0.04 x10(3)/mc L 06/07/2024 2:58 AM [facility] Blood VENOUS BLOOD SPECIMEN / Unknown Venipuncture / Unknown 06/07/2024 2:41 AM EST 06/07/2024 2:52 AM EST Shahnaz Scanlon MD HEMATOLOGY ORDERABLE S [facility] [place] [address] * Magnesium (06/07/2024 2:41 AM EST) Magnesium 0.92 0.69 - 1.07 mMol/L 06/07/2024 3:25 AM EST [facility] Blood VENOUS BLOOD SPECIMEN / Unknown Venipuncture / Unknown 06/07/2024 2:41 AM EST 06/07/2024 2:51 AM EST Shahnaz Scanlon MD CHEMISTRY ORDERABLES [facility] [place] [address] * (ABNORMAL) Basic Metabolic Panel (06/07/2024 2:41 [...] Scanlon MD CHEMISTRY ORDERABLES Performing Organization Address [facility] Co de Phone Number [facility] [place] [address] * POC, GLUCOSE (06/07/2024 12:08 AM EST) Glucometer, POC 182 65 - 199 mg/dL 06/07/2024 12:09 AM EST [facility] Comment:Supplemental ranges: <140 mg/dL before meals <180 mg/dL all other times of the day. Blood CAPILLARY BLOOD / Unknown 06/07/2024 12:08 AM EST 06/07/2024 12:09 AM EST Melida Valdes MD POINT OF CARE TEST O RDERABLES Performing Organization Address City/[facility]/ZIP Co de Phone Number [facility] [place] [address] * POC, GLUCOSE (06/06/2024 8:18 PM EST) Glucometer, POC 143 65 - 199 mg/dL 06/06/2024 8:19 PM EST [facility] Comment:Supplemental ranges: <140 mg/dL before meals <180 mg/dL all other times of the day. Blood CAPILLARY BLOOD / Unknown 06/06/2024 8:18 PM EST 06/06/2024 8:19 PM EST Melida Valdes MD POINT OF CARE TEST O NIKA Performing Organization Address [facility] Co de Phone Number [facility] [place] [address] * POC, GLUCOSE (06/06/2024 3:39 PM EST) Glucometer, POC 147 65 - 199 mg/dL 06/06/2024 3:40 PM EST [facility] Comment:Supplemental ranges: <140 mg/dL before meals <180 mg/dL all other times of the day. Blood CAPILLARY BLOOD / Unknown 06/06/2024 3:39 PM EST 06/06/2024 3:40 PM EST Melida Valdes MD POINT OF CARE TEST Abimael MAHER Performing Organization Address [facility] de Phone Number [facility] [place] [address] * Potassium (06/06/2024 2:37 PM EST) Potassium 4.3 3.5 - 5.0 mMol/L 06/06/2024 3:01 PM EST [facility] Blood VENOUS BLOOD SPECIMEN / Unknown Venipuncture / Unknown 06/06/2024 2:37 PM EST 06/06/2024 2:42 PM EST Shahnaz Scanlon MD CHEMISTRY ORDERABLES Performing Organization Address [facility] Co de Phone Number [facility] [place] [address] * (ABNORMAL) POC, GLUCOSE (06/06/2024 1:39 PM EST) Glucometer, POC 317(H) 65 - 199 mg/dL 06/06/2024 1:40 PM EST [facility] Comment:Supplemental ranges: <140 mg/dL before meals <180 mg/dL all other times of the day. Blood CAPILLARY BLOOD / Unknown 06/06/2024 1:39 PM EST 06/06/2024 1:41 PM EST Melida Valdes MD POINT OF CARE TEST O NIKA [facility] [place] [address] * (ABNORMAL) POC, GLUCOSE (06/06/2024 11:34 AM EST) Glucometer, POC 264(H) 65 - 199 mg/dL 06/06/2024 11:35 AM EST [facility] Comment:Supplemental ranges: <140 mg/dL before meals <180 mg/dL all other times of the day. Blood CAPILLARY BLOOD / Unknown 06/06/2024 11:34 AM EST 06/06/2024 11:35 AM EST Melida Valdes MD POINT OF CARE TEST Abimael MAHER Performing Organization Address City/[facility]/ZIP Co de Phone Number [facility] [place] [address] * Potassium (06/06/2024 10:17 AM EST) Potassium 4.3 3.5 - 5.0 mMol/L 06/06/2024 10:46 AM EST [facility] Blood VENOUS BLOOD SPECIMEN / Unknown Venipuncture / Unknown 06/06/2024 10:17 AM EST 06/06/2024 10:22 AM EST Shahnaz Scanlon MD CHEMISTRY ORDERABLES [facility] [place] [address] * POC, GLUCOSE (06/06/2024 7:57 AM EST) Glucometer, POC 195 65 - 199 mg/dL 06/06/2024 8:03 AM EST [facility] Comment:Supplemental ranges: <140 mg/dL before meals <180 mg/dL all other times of the day. Blood CAPILLARY BLOOD / Unknown 06/06/2024 7:57 AM EST 06/06/2024 8:03 AM EST Melida Valdes MD POINT OF CARE TEST O NIKA Performing Organization Address [facility] Co de Phone Number [facility] [place] [address] * POC, GLUCOSE (06/06/2024 6:53 AM EST) Glucometer, POC 187 65 - 199 mg/dL 06/06/2024 6:53 AM EST [facility] Comment:Supplemental ranges: <140 mg/dL before meals <180 mg/dL all other times of the day. Blood CAPILLARY BLOOD / Unknown 06/06/2024 6:53 AM EST 06/06/2024 6:54 AM EST Melida Valdes MD POINT OF CARE TEST Abimael MAHER Performing Organization Address [facility] Co de Phone Number [facility] [place] [address] * (ABNORMAL) Hemoglobin A1c (06/06/2024 3:33 AM EST) Hemoglobin A1c 7.1(H) 4.3 - 5.6 % 06/06/2024 1:01 PM EST [facility] Comment: Per ADA guidelines, [...] red blood cell turnover may not be human resources hr representative of glycemic control. Reference Interval: 4.3 - 5.6% 5.7 - 6.4%: Consistent with prediabetes >=6.5%: Consistent with diagnosis of diabetes mellitus Estimated Average Glucose 157 mg/dL 06/06/2024 1:01 PM EST [facility] LABORATORY Blood VENOUS BLOOD SPECIMEN / Unknown Venipuncture / Unknown 06/06/2024 3:33 AM EST 06/06/2024 3:48 AM EST Alejandra Baumann APRN CHEMISTRY ORDERAB LES Performing Organization Address [facility]/ZIP Co de Phone Number [facility] [place] [address] * Heparin (unfractionated) Level (06/06/2024 3:33 AM EST) UF Heparin 0.36 IU/mL 06/06/2024 3:59 AM EST [facility] Comment: Heparin (anti-Xa) levels [...] Performing Organization Address City/[facility]/ZIP Co de Phone Number [facility] [place] [address] * (ABNORMAL) CBC (with Diff) (06/06/2024 3:33 AM EST) White Blood Cell 9.81(H) 4.00 - 9.50 x10(3)/mc L 06/06/2024 3:54 AM [facility] Red Blood Cell 4.91 4.58 - 5.54 x10(6)/mc L 06/06/2024 3:54 AM [facility] Hemoglobin 14.6 13.7 - 16.5 g/dL 06/06/2024 3:54 AM [facility] Hematocrit 45.4 40.5 - 48.5 % 06/06/2024 3:54 AM [facility] Mean Cell Volume 92.5 82.9 - 93.1 fL 06/06/2024 3:54 AM [facility] Mean Cell Hemoglobin 29.7 27.5 - 32.1 pg 06/06/2024 3:54 AM [facility] Mean Cell Hemoglobin Concentration 32.2 32.0 - 35.7 g/dL 06/06/2024 3:54 AM [facility] Platelet 199 145 - [...] EST Shahnaz Scanlon MD HEMATOLOGY ORDERABLE S [facility] [place] [address] * Magnesium (06/06/2024 3:33 AM EST) Magnesium 0.92 0.69 - 1.07 mMol/L 06/06/2024 4:17 AM [facility] Blood VENOUS BLOOD SPECIMEN / Unknown Venipuncture / Unknown 06/06/2024 3:33 AM EST 06/06/2024 3:47 AM EST Shahnaz Scanlon MD CHEMISTRY ORDERABLES [facility] [place] [address] * (ABNORMAL) Basic Metabolic Panel (06/06/2024 3:33 [...] [facility] Potassium 4.0 3.5 - [...] m?? 06/06/2024 4:17 AM [facility] [...] Scanlon MD CHEMISTRY ORDERABLES Performing Organization Address [facility] Co de Phone Number [facility] [place] [address] * (ABNORMAL) POC, GLUCOSE (06/05/2024 10:31 PM EDT) Glucometer, POC 238(H) 65 - 199 mg/dL 06/05/2024 10:31 PM EDT [facility] Comment:Supplemental ranges: <140 mg/dL before meals <180 mg/dL all other times of the day. Blood CAPILLARY BLOOD / Unknown 06/05/2024 10:31 PM EDT 06/05/2024 10:31 PM EDT Melida Valdes MD POINT OF CARE TEST O RDERABLES Performing Organization Address City/[facility]/ZIP Co de Phone Number [facility] [place] [address] * (ABNORMAL) POC, GLUCOSE (06/05/2024 4:22 PM EDT) Glucometer, POC 205(H) 65 - 199 mg/dL 06/05/2024 4:22 PM EDT [facility] Comment:Supplemental ranges: <140 mg/dL before meals <180 mg/dL all other times of the day. Blood CAPILLARY BLOOD / Unknown 06/05/2024 4:22 PM EDT 06/05/2024 4:23 PM EDT Melida Valdes MD POINT OF CARE TEST O RDERABLES [facility] [place] [address] * (ABNORMAL) POC, GLUCOSE (06/05/2024 11:34 AM EDT) Glucometer, POC 211(H) 65 - 199 mg/dL 06/05/2024 11:34 AM EDT [facility] Comment:Supplemental ranges: <140 mg/dL before meals <180 mg/dL all other times of the day. Blood CAPILLARY BLOOD / Unknown 06/05/2024 11:34 AM EDT 06/05/2024 11:34 AM EDT Melida Valdes MD POINT OF CARE TEST O RDERABLES Performing Organization Address City/[facility]/ZIP Co de Phone Number [facility] [place] [address] * Potassium (06/05/2024 9:04 AM EDT) Potassium 4.3 3.5 - 5.0 mMol/L 06/05/2024 9:50 AM EDT [facility] Blood VENOUS BLOOD SPECIMEN / Unknown Venipuncture / Unknown 06/05/2024 9:04 AM EDT 06/05/2024 9:21 AM EDT Shahnaz Scanlon MD CHEMISTRY ORDERABLES [facility] [place] [address] * POC, GLUCOSE (06/05/2024 7:27 AM EDT) Glucometer, POC 166 65 - 199 mg/dL 06/05/2024 7:27 AM EDT [facility] Comment:Supplemental ranges: <140 mg/dL before meals <180 mg/dL all other times of the day. Blood CAPILLARY BLOOD / Unknown 06/05/2024 7:27 AM EDT 06/05/2024 7:27 AM EDT Melida Valdes MD POINT OF CARE TEST O RDERABLES Performing Organization Address [facility] Co de Phone Number [facility] [place] [address] * Heparin (unfractionated) Level (06/05/2024 3:44 AM EDT) UF Heparin 0.44 IU/mL 06/05/2024 4:07 AM EDT [facility] Comment: Heparin (anti-Xa) levels [...] Performing Organization Address City/[facility]/ZIP Co de Phone Number [facility] [place] [address] * (ABNORMAL) CBC (with Diff) (06/05/2024 3:44 AM EDT) White Blood Cell 10.83(H) 4.00 - 9.50 x10(3)/mc L 06/05/2024 3:56 AM EDT [facility] Red Blood Cell 5.07 4.58 - 5.54 x10(6)/mc L 06/05/2024 3:56 AM [facility] Hemoglobin 15.3 13.7 - 16.5 g/dL 06/05/2024 3:56 AM [facility] Hematocrit 46.8 40.5 - 48.5 % 06/05/2024 3:56 AM [facility] Mean Cell Volume 92.3 82.9 - 93.1 fL 06/05/2024 3:56 AM [facility] Mean Cell Hemoglobin 30.2 27.5 - 32.1 pg 06/05/2024 3:56 AM [facility] [...] % 24.0 % 06/05/2024 3:56 AM EDT [facility] Lymph Absolute 2.60 0.90 - 3.20 x10(3)/mc L 06/05/2024 3:56 AM EDT [facility] Monocyte % 10.9 % 06/05/2024 3:56 AM EDT [facility] Monocyte Absolute 1.18(H) 0.30 - 0.90 x10(3)/mc L 06/05/2024 3:56 AM EDT [facility] Eos % 2.2 % 06/05/2024 3:56 AM EDT [facility] Eos Absolute 0.24 0.00 - 0.40 x10(3)/mc L 06/05/2024 3:56 AM EDT [facility] Basophil % 0.8 % 06/05/2024 3:56 AM EDT [facility] Baso Absolute 0.09 0.00 - 0.10 x10(3)/mc L 06/05/2024 3:56 AM EDT [facility] Immature Gran % 0.6 % 3:56 AM EDT [facility] Immature Gran Absolute 0.07(H) 0.00 - 0.04 x10(3)/mc L 06/05/2024 3:56 AM EDT [facility] Blood VENOUS BLOOD SPECIMEN / Unknown Venipuncture / Unknown 06/05/2024 3:44 AM EDT 06/05/2024 3:50 AM EDT Shahnaz Scanlon MD HEMATOLOGY ORDERABLE S [facility] [place] [address] * Magnesium (06/05/2024 3:44 AM EDT) Magnesium 0.92 0.69 - 1.07 mMol/L 06/05/2024 4:20 AM EDT [facility] Blood VENOUS BLOOD SPECIMEN / Unknown Venipuncture / Unknown 06/05/2024 3:44 AM EDT 06/05/2024 3:50 AM EDT Shahnaz Scanlon MD CHEMISTRY ORDERABLES [facility] [place] [address] * (ABNORMAL) Basic Metabolic Panel (06/05/2024 3:44 AM EDT) Glucose 155 65 - 199 mg/dL 06/05/2024 4:20 AM EDT [facility] Comment:Glucose Concentratio n >=200 [...] Scanlon MD CHEMISTRY ORDERABLES Performing Organization Address [facility]/ZIP Co de Phone Number [facility] [place] [address] * Potassium (06/04/2024 10:34 PM EDT) Potassium 3.7 3.5 - 5.0 mMol/L 06/04/2024 11:03 PM EDT [facility] Blood VENOUS BLOOD SPECIMEN / Unknown Venipuncture / Unknown 06/04/2024 10:34 PM EDT 06/04/2024 10:39 PM EDT Shahnaz Scanlon MD CHEMISTRY ORDERABLES Performing Organization Address [facility] Co de Phone Number [facility] [place] [address] * POC, GLUCOSE (06/04/2024 7:43 PM EDT) Glucometer, POC 175 65 - 199 mg/dL 06/04/2024 7:43 PM EDT [facility] Comment:Supplemental ranges: <140 mg/dL before meals <180 mg/dL all other times of the day. Blood CAPILLARY BLOOD / Unknown 06/04/2024 7:43 PM EDT 06/04/2024 7:43 PM EDT Melida Valdes MD POINT OF CARE TEST O RDERABLES Performing Organization Address City/State/[facility] Co de Phone Number [facility] [place] [address] * Potassium (06/04/2024 4:35 PM EDT) Potassium 4.0 3.5 - 5.0 mMol/L 06/04/2024 5:32 PM EDT [facility] Blood VENOUS BLOOD SPECIMEN / Unknown Venipuncture / Unknown 06/04/2024 4:35 PM EDT 06/04/2024 4:40 PM EDT Shahnaz Scanlon MD CHEMISTRY ORDERABLES Performing Organization Address [facility] Co de Phone Number [facility] [place] [address] * POC, GLUCOSE (06/04/2024 3:26 PM EDT) Glucometer, POC 154 65 - 199 mg/dL 06/04/2024 3:26 PM EDT [facility] Comment:Supplemental ranges: <140 mg/dL before meals <180 mg/dL all other times of the day. Blood CAPILLARY BLOOD / Unknown 06/04/2024 3:26 PM EDT 06/04/2024 3:27 PM EDT Melida Valdes MD POINT OF CARE TEST O RDERABLES Performing Organization Address [facility] Co de Phone Number [facility] [place] [address] * POC, GLUCOSE (06/04/2024 11:09 AM EDT) Glucometer, POC 188 65 - 199 mg/dL 06/04/2024 11:09 AM EDT [facility] Comment:Supplemental ranges: <140 mg/dL before meals <180 mg/dL all other times of the day. Blood CAPILLARY BLOOD / Unknown 06/04/2024 11:09 AM EDT 06/04/2024 11:09 AM EDT Delroy Fofana MD POINT OF CARE TEST ORDERABLES Performing Organization Address [facility] Co de Phone Number [facility] [place] [address] * Heparin (unfractionated) Level (06/04/2024 10:41 AM EDT) UF Heparin 0.43 IU/mL 06/04/2024 11:06 AM EDT [facility] Comment: Heparin (anti-Xa) levels [...] EDT Shahnaz Scanlon MD HEMATOLOGY ORDERABLE S [facility] [place] [address] * Potassium (06/04/2024 10:41 AM EDT) Potassium 4.0 3.5 - 5.0 mMol/L 06/04/2024 11:11 AM EDT [facility] Blood VENOUS BLOOD SPECIMEN / Unknown Venipuncture / Unknown 06/04/2024 10:41 AM EDT 06/04/2024 10:46 AM EDT Shahnaz Scanlon MD CHEMISTRY ORDERABLES Performing Organization Address City/[facility]/ZIP Co de Phone Number [facility] [place] [address] * POC, GLUCOSE (06/04/2024 7:11 AM EDT) Glucometer, POC 182 65 - 199 mg/dL 06/04/2024 7:12 AM EDT [facility] Comment:Supplemental ranges: <140 mg/dL before meals <180 mg/dL all other times of the day. Blood CAPILLARY BLOOD / Unknown 06/04/2024 7:11 AM EDT 06/04/2024 7:12 AM EDT Delroy Fofana MD POINT OF CARE TEST ORDERABLES Performing Organization Address [facility] Co de Phone Number [facility] [place] [address] * Heparin (unfractionated) Level (06/04/2024 4:38 AM EDT) UF Heparin 0.41 IU/mL 06/04/2024 5:19 AM EDT [facility] Comment: Heparin (anti-Xa) levels [...] EDT Shahnaz Scanlon MD HEMATOLOGY ORDERABLE S [facility] [place] [address] * (ABNORMAL) CBC (with Diff) (06/04/2024 4:38 AM EDT) White Blood Cell 11.45(H) 4.00 - 9.50 x10(3)/mc L 06/04/2024 5:12 AM EDT [facility] Red Blood Cell 5.35 4.58 - 5.54 x10(6)/mc L 06/04/2024 5:12 AM EDT [facility] Hemoglobin 16.0 13.7 - 16.5 g/dL 06/04/2024 5:12 AM EDT [facility] Hematocrit 49.6(H) 40.5 - 48.5 % 06/04/2024 5:12 AM EDT [facility] Mean Cell Volume 92.7 82.9 - 93.1 fL 06/04/2024 5:12 AM EDT [facility] Mean Cell Hemoglobin 29.9 27.5 - 32.1 pg 06/04/2024 5:12 AM EDT [facility] Mean Cell Hemoglobin Concentration 32.3 32.0 - 35.7 g/dL 06/04/2024 5:12 AM EDT [facility] Platelet 222 145 - 357 x10(3)/mc L 06/04/2024 5:12 AM EDT [facility] Mean Platelet Volume 9.5 7.6 - 12.9 fL 06/04/2024 5:12 AM EDT [facility] RDW Standard Deviation 47.6(H) 36.0 - 45.0 fL 06/04/2024 5:12 AM EDT [facility] RDW coefficient of variation 14.1(H) 11.4 - 13.8 % 06/04/2024 5:12 AM EDT [facility] NRBC% auto 0.0 % [...] - 3.20 x10(3)/mc L 06/04/2024 5:12 AM [facility] Monocyte % 10.6 % 06/04/2024 5:12 AM [facility] Monocyte Absolute 1.21(H) 0.30 - 0.90 x10(3)/mc L 06/04/2024 5:12 AM [facility] Eos % 2.8 % 06/04/2024 5:12 AM [facility] Eos Absolute 0.32 0.00 - 0.40 x10(3)/mc L 06/04/2024 5:12 AM [facility] Basophil % 0.7 % 06/04/2024 5:12 AM [facility] Baso Absolute 0.08 0.00 - 0.10 x10(3)/mc L 06/04/2024 5:12 AM [facility] Immature Gran % 0.5 % 5:12 AM [facility] Immature Gran Absolute 0.06(H) 0.00 - 0.04 x10(3)/mc L 06/04/2024 5:12 AM [facility] Blood VENOUS BLOOD SPECIMEN / Unknown Venipuncture / Unknown 06/04/2024 4:38 AM EDT 06/04/2024 5:07 AM EDT Shahnaz Scanlon MD HEMATOLOGY ORDERABLE S [facility] [place] [address] * Magnesium (06/04/2024 4:38 AM EDT) Magnesium 0.84 0.69 - 1.07 mMol/L 06/04/2024 5:35 AM EDT [facility] Blood VENOUS BLOOD SPECIMEN / Unknown Venipuncture / Unknown 06/04/2024 4:38 AM EDT 06/04/2024 5:07 AM EDT Shahnaz Scanlon MD CHEMISTRY ORDERABLES Performing Organization Address City/[facility]/ZIP Co de Phone Number [facility] [place] [address] * (ABNORMAL) Basic Metabolic Panel (06/04/2024 4:38 AM EDT) Glucose 118 65 - 199 mg/dL 06/04/2024 5:35 AM EDT [facility] Comment:Glucose Concentratio n >=200 mg/dL plus symptoms is consistent with Diabetes Mellitus. Blood Urea Nitrogen 22(H) 10 - 20 mg/dL 06/04/2024 5:35 AM EDT [facility] Creatinine 1.22 0.80 - 1.50 mg/dL 06/04/2024 5:35 AM EDT [facility] Sodium 137 135 - 145 mMol/L 06/04/2024 5:35 AM EDT [facility] Potassium 3.6 3.5 - 5.0 mMol/L 06/04/2024 5:35 AM EDT [facility] Chloride 97(L) 98 - 107 mMol/L 06/04/2024 5:35 AM EDT [facility] Carbon Dioxide 29 22 - 31 mMol/L 06/04/2024 5:35 AM EDT [facility] Anion Gap 11 5 - 15 mMol/L 06/04/2024 5:35 AM EDT [facility] Calcium 9.0 8.5 - 10.5 mg/dL 06/04/2024 5:35 AM EDT [facility] Est Glomerular Filtration Rate - Male 65 mL/min/1. 73 m?? 06/04/2024 5:35 AM EDT [facility] Comment: This patient's estimated [...] AM EDT Shahnaz Scanlon MD CHEMISTRY ORDERABLES [facility] [place] [address] * Heparin (unfractionated) Level (06/03/2024 8:58 PM EDT) UF Heparin 0.27 IU/mL 06/03/2024 9:33 PM EDT [facility] Comment: Heparin (anti-Xa) levels [...] MD HEMATOLOGY ORDERABLE S Performing Organization Address [facility]/ZIP Co de Phone Number [facility] [place] [address] * POC, GLUCOSE (06/03/2024 8:05 PM EDT) Glucometer, POC 136 65 - 199 mg/dL 06/03/2024 8:05 PM EDT [facility] Comment:Supplemental ranges: <140 mg/dL before meals <180 mg/dL all other times of the day. Blood CAPILLARY BLOOD / Unknown 06/03/2024 8:05 PM EDT 06/03/2024 8:05 PM EDT Delroy Fofana MD POINT OF CARE TEST ORDERABLES Performing Organization Address [facility] Co de Phone Number [facility] [place] [address] * POC, GLUCOSE (06/03/2024 5:48 PM EDT) Glucometer, POC 191 65 - 199 mg/dL 06/03/2024 5:48 PM EDT [facility] Comment:Supplemental ranges: <140 mg/dL before meals <180 mg/dL all other times of the day. Blood CAPILLARY BLOOD / Unknown 06/03/2024 5:48 PM EDT 06/03/2024 5:49 PM EDT Delroy Fofana MD POINT OF CARE TEST ORDERABLES [facility] [place] [address] * CT Chest wo Contrast (Generic) (06/03/2024 4:33 PM EDT) WORKSTATION ID [id number] RAD Anatomical Region Laterality Modality Chest Computed Tomogra phy Impressions 06/03/2024 4:47 PM EDT Cardiomegaly. Biventricular ICD leads in place. Thank you for letting us participate in the care of this patient. ??If you are a health care provider and have any questions regarding this report, please contact the number below. ??For patients who have questions please contact the health rn wound care that requested your imaging first. ? [...] who have questions please contactthe health rn wound care that requested your imaging first. Bobby Loja MD IMG CT ORDERABLES * Carotid Duplex, Bilateral (06/03/2024 2:19 PM EDT) VB Text Report Department: Vascular Surgery Lab Patient: [id number] (GEORGE MEHTA) CPT: 87856 Referring Physician: BOBBY LOJA ?? Phone: Indications: [...] Loja MD VASCULAR ORDERABLES Performing Organization Address City/State/[facility] Co de Phone Number [facility] * Heparin (unfractionated) Level (06/03/2024 12:48 PM EDT) UF Heparin 0.15 IU/mL 06/03/2024 1:13 PM EDT [facility] Comment: Heparin (anti-Xa) levels [...] EDT Shahnaz Scanlon MD HEMATOLOGY ORDERABLE S [facility] [place] [address] * POC, GLUCOSE (06/03/2024 11:14 AM EDT) Glucometer, POC 166 65 - 199 mg/dL 06/03/2024 11:14 AM EDT [facility] Comment:Supplemental ranges: <140 mg/dL before meals <180 mg/dL all other times of the day. Blood CAPILLARY BLOOD / Unknown 06/03/2024 11:14 AM EDT 06/03/2024 11:14 AM EDT Delroy Fofana MD POINT OF CARE TEST ORDERABLES Performing Organization Address [facility] Co de Phone Number [facility] [place] [address] * (ABNORMAL) Troponin-T, High Sensitivity 3 Hour (06/03/2024 10:06 AM EDT) Troponin-T, High Sensitivity 266(H) <=22 ng/L 06/03/2024 10:50 AM EDT [facility] Comment: This patient's troponin [...] can be found in the [facility] Test Catalog Troponin - [email or web address]/catalogs/565/files/29731 Reference: Fourth [place] Definition of Myocardial Infarction. Journal of the [place] [employer] 2018;72:2964-9257 Troponin-T, HS 3 hr delta 06/03/2024 10:50 AM EDT [facility] Comment:Delta troponin value not calculated, sample collected outside of delta calculation time limit. Blood VENOUS BLOOD SPECIMEN / Unknown IP Care Team Draw / Unknown 06/03/2024 10:06 AM EDT 06/03/2024 10:15 AM EDT Delroy Fofana MD CHEMISTRY ORDERABLE S [facility] [place] [address] * ECHO COMPLETE W CONTRAST (06/03/2024 8:46 AM EDT) Anatomical Region Laterality Modality Cardiac Other 06/03/2024 6:52 AM EDT Narrative 06/03/2024 10:32 AM EDT [address] [place] [address] ? Echocardiogram Report Name: GEORGE MEHTA ?Study Date: 06/03/2024 06:52 AM : 1955 ? Height: 168 cm ? Account: [id number] Age: 69 yrs ? Weight: 102 kg Gender: Male ?BSA: 2.1 m2 Ordering Physician: SHAHNAZ SCANLON Referring Physician: NEHAL QUINTERO Performed By: Sara Kebede RDCS Reason For Study: STEMI Exam Location: [facility]. Interpretation Summary -Left ventricular systolic [...] fellow performed study of today's date). Procedure Complete-[id number]. Image enhancement Optison was used for left [...] Note Jonnie Jordan MD - 06/03/2024 [address] [place] [address] Echocardiogram Report Name: GEORGE MEHTA Study Date: 406:52 AM : 1955 Height: 168 cm Account: [id number] Age: 69 yrs Weight: 102 kg Gender: Male BSA: 2.1 m2 Ordering Physician: SHAHNAZ SCANLON Referring Physician: NEHAL QUINTERO Performed By: Sara Kebede RDCS Reason For Study: STEMI Exam Location: [facility]. Interpretation Summary -Left ventricular systolic [...] a fellow performed study of's date). Procedure Complete-[id number]. Image enhancement Optison was used for left [...] 289(H) <=22 ng/L 06/03/2024 9:26 AM EDT [facility] Comment: This patient's troponin [...] can be found in the [facility] Test Catalog Troponin - [email or web address]/catalogs/565/files/22643 Reference: Fourth [place] Definition of Myocardial Infarction. Journal of the [place] [employer] 2018;72:6327-7462 Troponin-T, HS 1 hr delta 5 ng/L 06/03/2024 9:26 AM EDT [facility] Comment:The 1 hour Troponin [...] MD CHEMISTRY ORDERABLE S Performing Organization Address City/[facility]/ZIP Co de Phone Number [facility] [place] [address] * POC, GLUCOSE (06/03/2024 7:54 AM EDT) Glucometer, POC 195 65 - 199 mg/dL 06/03/2024 7:55 AM EDT [facility] Comment:Supplemental ranges: <140 mg/dL before meals <180 mg/dL all other times of the day. Blood CAPILLARY BLOOD / Unknown 06/03/2024 7:54 AM EDT 06/03/2024 7:55 AM EDT Nuha Rojo MD POINT OF CARE TEST ORDERABLES Performing Organization Address [facility] Co de Phone Number [facility] [place] [address] * (ABNORMAL) Troponin-T, High Sensitivity (06/03/2024 7:39 AM EDT) Troponin-T, High Sensitivity Initial 284(H) <=22 ng/L 06/03/2024 8:29 AM EDT [facility] Comment: This patient's troponin [...] troponin value can be found in the [facility] [employer] [facility] Test Catalog Troponin - [email or web address] Reference: Fourth [place] Definition of Myocardial Infarction. Journal of the [place] [employer] 2018;72:9047-2723 Blood VENOUS BLOOD SPECIMEN / Unknown IP Care Team Draw / Unknown 06/03/2024 7:39 AM EDT 06/03/2024 7:48 AM EDT Delroy Fofana MD CHEMISTRY ORDERABLE S [facility] [place] [address] * (ABNORMAL) Troponin-T, High Sensitivity 3 Hour (06/03/2024 5:11 AM EDT) Troponin-T, High Sensitivity 254(H) <=22 ng/L 06/03/2024 5:49 AM EDT [facility] Comment: This patient's troponin [...] troponin value can be found in the [facility] [employer] [facility] Test Catalog Troponin - [email or web address] Reference: Fourth [place] Definition of Myocardial Infarction. Journal of the [place] [employer] 2018;72:7000-0962 Troponin-T, HS 3 hr delta 46 ng/L 06/03/2024 5:49 AM EDT [facility] Comment:The 3 hour Troponin T delta value is the absolute difference between the Troponin T concentrations of the initial and subsequent sample collected between 2 h: 45 min and 6 h following the initial collection Blood VENOUS BLOOD SPECIMEN / Unknown IP Care Team Draw / Unknown 06/03/2024 5:11 AM EDT 06/03/2024 5:20 AM EDT Shahnaz Scanlon MD CHEMISTRY ORDERABLES [facility] [place] [address] * (ABNORMAL) Troponin-T, High Sensitivity 1 Hour (06/03/2024 3:07 AM EDT) Troponin-T, High Sensitivity 218(H) <=22 ng/L 06/03/2024 3:39 AM EDT [facility] Comment: This patient's troponin [...] can be found in the [facility] Laboratory Test Catalog Troponin - https://[facility]-.testcatalog.org/catalogs/565/files/94624 Reference: Fourth [place] Definition of Myocardial Infarction. Journal of the [place] College [employer] 2018;72:1084-3115 Troponin-T, HS 1 hr delta 10 ng/L 06/03/2024 3:39 AM EDT [facility] Comment:The 1 hour Troponin T delta value is the absolute difference between the Troponin T concentrations of the initial and subsequent sample collected between 45 - 120 minutes following the initial collection. Blood VENOUS BLOOD SPECIMEN / Unknown IP Care Team Draw / Unknown 06/03/2024 3:07 AM EDT 06/03/2024 3:12 AM EDT Shahnaz Scanlon MD CHEMISTRY ORDERABLES [facility] [place] [address] * XR Chest One View (06/03/2024 2:41 AM EDT) WORKSTATION ID [id number] RAD Anatomical Region Laterality Modality Chest N/A Digital Radiogra phy Impressions 06/03/2024 3:06 AM EDT No radiographically evident acute cardiopulmonary process. Thank you for letting us participate in the care of this patient. ??If you are a health care provider and have any questions regarding this report, please contact the number below. ??For patients who have questions please contact the health rn wound care that requested your imaging first. ? [...] who have questions please contactthe health rn wound care that requested your imaging first. Shahnaz Scanlon MD IMG DX ORDERABLES * Heparin (unfractionated) Level (06/03/2024 2:13 AM EDT) UF Heparin 0.56 IU/mL 06/03/2024 4:13 AM EDT [facility] Comment: Heparin (anti-Xa) levels [...] EDT Shahnaz Scanlon MD HEMATOLOGY ORDERABLE S [facility] [place] [address] * (ABNORMAL) Troponin-T, High Sensitivity (06/03/2024 2:13 AM EDT) Troponin-T, High Sensitivity Initial 208(H) <=22 ng/L 06/03/2024 3:02 AM EDT [facility] Comment: This patient's troponin [...] can be found in the [facility] Laboratory Test Catalog Troponin - https://one-.testcatalog.org/catalogs/565/files/69272 Reference: Fourth [place] Definition of Myocardial Infarction. Journal of the [place] [employer]iology 2018;72:9349-1827 Blood VENOUS BLOOD SPECIMEN / Unknown IP Care Team Draw / Unknown 06/03/2024 2:13 AM EDT 06/03/2024 2:32 AM EDT Shahnaz Scanlon MD CHEMISTRY ORDERABLES Performing Organization Address City/[facility]/ZIP Co de Phone Number [facility] [place] [address] * Magnesium (06/03/2024 2:13 AM EDT) Magnesium 0.86 0.69 - 1.07 mMol/L 06/03/2024 3:02 AM EDT [facility] Blood VENOUS BLOOD SPECIMEN / Unknown IP Care Team Draw / Unknown 06/03/2024 2:13 AM EDT 06/03/2024 2:32 AM EDT Shahnaz Scanlon MD CHEMISTRY ORDERABLES Performing Organization Address City/[facility]/ZIP Co de Phone Number [facility] [place] [address] * Basic Metabolic Panel (06/03/2024 2:13 AM EDT) Glucose 126 65 - 199 mg/dL 06/03/2024 3:02 AM EDT [facility] Comment:Glucose Concentratio n >=200 mg/dL plus symptoms is consistent with Diabetes Mellitus. Blood Urea Nitrogen 20 10 - 20 mg/dL 06/03/2024 3:02 AM EDT [facility] Creatinine 1.13 0.80 - 1.50 mg/dL 06/03/2024 3:02 AM EDT [facility] Sodium 139 135 - 145 mMol/L 06/03/2024 3:02 AM EDT [facility] Potassium 4.2 3.5 - 5.0 mMol/L 06/03/2024 3:02 AM EDT [facility] Chloride 101 98 - 107 mMol/L 06/03/2024 3:02 AM EDT [facility] Carbon Dioxide 26 22 - 31 mMol/L 06/03/2024 3:02 AM EDT [facility] Anion Gap 12 5 - 15 mMol/L 06/03/2024 3:02 AM EDT [facility] Calcium 9.8 8.5 - 10.5 mg/dL 06/03/2024 3:02 AM EDT [facility] Est Glomerular Filtration Rate - Male 71 mL/min/1. 73 m?? 06/03/2024 3:02 AM EDT [facility] Comment: This patient's estimated [...] AM EDT Shahnaz Scanlon MD CHEMISTRY ORDERABLES [facility] [place] [address] * (ABNORMAL) CBC (with Diff) (06/03/2024 2:13 AM EDT) White Blood Cell 11.16(H) 4.00 - 9.50 x10(3)/mc L 06/03/2024 2:37 AM EDT [facility] Red Blood Cell 5.09 4.58 - 5.54 x10(6)/mc L 06/03/2024 2:37 AM EDT [facility] Hemoglobin 15.0 13.7 - 16.5 g/dL 06/03/2024 2:37 AM [facility] Hematocrit 47.4 40.5 - 48.5 % 06/03/2024 2:37 AM [facility] Mean Cell Volume 93.1 82.9 [...] - 357 x10(3)/mc L 06/03/2024 2:37 AM [facility] [...] % 8.1 % 06/03/2024 2:37 AM EDT [facility] Monocyte Absolute 0.90 0.30 - 0.90 x10(3)/mc L 06/03/2024 2:37 AM EDT [facility] Eos % 2.4 % 06/03/2024 2:37 AM EDT [facility] Eos Absolute 0.27 0.00 - 0.40 x10(3)/mc L 06/03/2024 2:37 AM EDT [facility] Basophil % 0.8 % 06/03/2024 2:37 AM EDT [facility] Baso Absolute 0.09 0.00 - 0.10 x10(3)/mc L 06/03/2024 2:37 AM EDT [facility] Immature Gran % 0.4 % 2:37 AM EDT [facility] Immature Gran Absolute 0.05(H) 0.00 - 0.04 x10(3)/mc L 06/03/2024 2:37 AM EDT [facility] Blood VENOUS BLOOD SPECIMEN / Unknown IP Care Team Draw / Unknown 06/03/2024 2:13 AM EDT 06/03/2024 2:31 AM EDT Shahnaz Scanlon MD HEMATOLOGY ORDERABLE S [facility] [place] [address] * Lipid Panel (Reflex Direct LDL) (06/03/2024 2:13 AM EDT) Cholesterol, Total 76 mg/dL 06/03/2024 3:02 AM EDT [facility] Comment: Desirable: < 200 mg/dL Borderline High: 200 - 239 mg/dL High: > or = 240 mg/dL Triglyceride 75 mg/dL 06/03/2024 3:02 AM EDT [facility] Comment: Normal: <150 mg/dL [...] AM EDT 06/03/2024 2:32 AM EDT [facility] - 06/03/2024 3:02 AM [...] artery disease) Shahnaz Scanlon MD CHEMISTRY ORDERABLES [facility] [place] [address] * (ABNORMAL) APTT (06/03/2024 2:13 AM EDT) [facility] Signature Partial Thromboplastin Time 105(HHH) 25 - 37 sec 06/03/2024 4:13 AM EDT [facility] Comment: The PTT is NOT appropriate for heparin monitoring. Use the Anti-Xa level for heparin monitoring (HEP UFH) or LMWH monitoring (HEP LMW). A PTT less than 37 seconds generally indicates adequate hemostasis. Blood VENOUS BLOOD SPECIMEN / Unknown IP Care Team Draw / Unknown 06/03/2024 2:13 AM EDT 06/03/2024 2:32 AM EDT Shahnaz Scanlon MD HEMATOLOGY ORDERABLE S [facility] [place] [address] * Prothrombin Time (06/03/2024 2:13 AM EDT) Prothrombin Time 11.5 9.4 - 12.5 sec 06/03/2024 4:13 AM EDT [facility] International Normalization Ratio 1.0 <=4.9 06/03/2024 4:13 AM EDT [facility] Comment: An INR < [...] EDT Shahnaz Scanlon MD HEMATOLOGY ORDERABLE S [facility] [place] [address] * Hepatic Function Panel (06/03/2024 2:13 AM EDT) Albumin 3.8 3.2 - 5.2 g/dL 06/03/2024 3:02 AM EDT [facility] Aspartate Aminotransferase 20 <=39 unit/L 06/03/2024 3:02 AM EDT [facility] Alanine Aminotransferase 12 0 - 55 unit/L 06/03/2024 3:02 AM EDT [facility] Alkaline Phosphatase 76 40 - 130 unit/L 06/03/2024 3:02 AM EDT [facility] Bilirubin, Total 0.4 <=1.3 mg/dL 06/03/2024 3:02 AM EDT [facility] Bilirubin, Direct <0.2 0.0 - 0.3 mg/dL 06/03/2024 3:02 AM EDT [facility] Protein, Total 7.0 6.1 - 8.0 g/dL 06/03/2024 3:02 AM EDT [facility] Blood VENOUS BLOOD SPECIMEN / Unknown IP Care Team Draw / Unknown 06/03/2024 2:13 AM EDT 06/03/2024 2:32 AM EDT Shahnaz Scanlon MD CHEMISTRY ORDERABLES [facility] [place] [address] * (ABNORMAL) pro-Brain Natriuretic Peptide (06/03/2024 2:13 AM EDT) NT-proBNP 1,628(H) <=124 pg/mL 06/03/2024 4:15 AM EDT [facility] Blood VENOUS BLOOD SPECIMEN / Unknown IP Care Team Draw / Unknown 06/03/2024 2:13 AM EDT 06/03/2024 2:32 AM EDT Shahnaz Scanlon MD CHEMISTRY ORDERABLES Performing Organization Address City/[facility]/ZIP Co de Phone Number [facility] [place] [address] * Phosphorus (06/03/2024 2:13 AM EDT) Phosphorus 4.4 2.5 - 4.5 mg/dL 06/03/2024 3:02 AM EDT [facility] Blood VENOUS BLOOD SPECIMEN / Unknown IP Care Team Draw / Unknown 06/03/2024 2:13 AM EDT 06/03/2024 2:32 AM EDT Shahnaz Scanlon MD CHEMISTRY ORDERABLES [facility] [place] [address] * EKG 12 Lead (06/03/2024 1:45 AM EDT) Ventricular rate 63 BPM MUSE SYSTEM Atrial Rate 63 BPM MUSE SYSTEM P-R Interval 168 ms MUSE SYSTEM QRS Duration 96 ms MUSE SYSTEM Q-T Interval 400 ms MUSE SYSTEM QTC Calculated (Bezet) 409 ms MUSE SYSTEM Calculated P [place] 65 degrees MUSE SYSTEM Calculated R [place] 70 degrees MUSE SYSTEM Calculated T [place] -86 degrees MUSE SYSTEM INTERPRETATION Atrial-sensed ventricular-paced rhythm Abnormal ECG No previous ECGs available I personally reviewed the tracing and edited the fellows interpretation Confirmed by fellow Sunni Agudelo ([id number]) on 06/04/2024 3:55:40 PM Confirmed by MD Tamia, Stuart Perry ([id number]) on 06/05/2024 11:46:48 AM MUSE SYSTEM 06/03/2024 1:45 AM EDT 06/05/2024 11:46 AM EDT Shahnaz Scanlon MD ECG ORDERABLES MUSE SYSTEM * CARDIAC CATHETERIZATION (06/03/2024 12:42 AM EDT) Anatomical Region Laterality Modality Other Narrative 06/04/2024 2:22 PM EDT ?[facility] ? Cardiac Catheterization/Intervention Report ? Patient Name: George Mehta L. ? Procedure Date: 06/02/2024 ? A #: [id number] ? Primary Physician: Nuha Shen I ? Case #: [id number] ? File Name: [id number] ? Catheterization Order Number: [id number] ? [facility] ? Final Report [place], [place] ? Patient Name: ? George L. Tyson ? ID#: ?[id number] ? : ?1955 ? Procedure Date: ? June 02, 2024 ? Case #: ? [id number] ? Room: ? 5 ? Case Physician: ? uNha Shen M.D. ? Start: ?23:23 ? Admission: [...] was designated as ASA Class IV. The [facility] clinical frailty ?scale is 5: [...] was Emergent. The indication for ?the laborer hide house visit is ACS less than or equal [...] ?3.5 guiding catheter and a 3.5 Fr [place] Andreafski 20 Mhz using Manual ?pullback. ??Imaging was [...] 3.5 guiding catheter and a 3.5 Fr [place] Andreafski 20 Mhz using ?Manual pullback. ??Imaging was [...] Procedure Note Nuha Shen MD - 07/20/2024 [facility] Cardiac Catheterization/Intervention Report Patient Name: George Mehta Procedure Date: 06/02/2024 A #: [id number] Primary Physician: Nuha Shen I Case #: [id number] File Name: [id number] Catheterization Order Number: [id number] [facility] FinalReport [place], [place] Patient Name: George Mehta ID#:[id number] :1955 Procedure Date: June 02, 2024 Case [...] was designated as ASA Class IV. The [facility] clinicalfrailty scale is 5: Mildly Frail. Diagnostic Tests: Electrocardiography: EKG was assessed by ECG. EKG was Abnormal. EKG showed STDeviation >= 0.5 mm. Medications Prior to Procedure: Sacubitril and Valsartan, Aspirin, Beta Erik, Statin and Thrombolytic (any). Indications for Diagnostic Cath: The priority of the diagnostic procedure was Emergent. Theindication for the laborer hide house visit is ACS less than or equal [...] units of heparin were administered. A total [id number] of Omnipaque were opened, 84cc of Omnipaque were administered [id number] of Omnipaque were wasted. Radiation: Fluoro time [...] 3.5 guiding catheter and a 3.5 Fr [place] Andreafski 20 Mhz usingManual pullback. Imaging was successful. [...] 3.5 guiding catheter and a 3.5 Fr [place] Andreafski 20 Mhzusing Manual pullback. Imaging was successful. Indication: IVUS performed for pre intervention planning. Findings Pre-Intervention: scattered plaque, calcification and [id number] degrees calcification. Findings Post-Intervention: Stent not imaged [...] * POC, GLUCOSE (06/02/2024 11:31 PM EDT) [facility] Signature Glucometer, POC 156 65 - 199 mg/dL 06/02/2024 11:31 PM EDT [facility] Comment:Supplemental ranges: <140 mg/dL before meals <180 mg/dL all other times of the day. Blood CAPILLARY BLOOD / Unknown 06/02/2024 11:31 PM EDT 06/02/2024 11:31 PM EDT Nuha Rojo MD POINT OF CARE TEST ORDERABLES Performing Organization Address City/State/[facility] Co de Phone Number [facility] [place] [phone] documented in this encounter Visit Diagnoses Not [...] 2100, Last dose on Fri06/23/24 at 0900, Cable Television Program Director recommended duration is 3 days., Routine [...] 10:46 AM EST 50 mEq sodium chloride ([place]) 0.65 % nasal spray 1 spray 1 [...] Provider: Michelle Orozco RN)174 (Given - Provider: iMchelle Orozco RN) 0837 (Given - Provider: Shazia [...] OPEN, Routine 1744 (Given - Provider: Michelle Oroczo RN) 0605 (Given - Provider: Christina Myers [...] 2100, Last dose on Fri06/23/24 at 0900, [employer] Television Program Director recommended duration is 3 days., Routine [...] oral route first line., Routine sodium chloride ([place]) 0.65 % nasal spray 1 spray 1 [...] Routine documented in this encounter Care Teams Tour Agent Relationship Specialty Start Date End Date Mauro Berumen MD [address] [place] [address] PCP - General Family Medicine 06/02/24 documented as of this encounter
--- OUTSIDE RECORDS SUMMARY | 2024-09-08 10:59 | XMS_ITS | Encounter Summary ---
Author Organization [facility] [place] [address] Care Team Providers Care Pig Caster Name Role Phone Mauro Berumen MD Primary Care Provider [phone] Reason for Visit * Auth/Cert Specialty Diagnoses / Procedures Referred By Carroll t Referred To Contact Diagnoses STEMI (ST elevation myocardial infarction) STEMI Procedures CARDIAC CATHETERIZATION EMERGENCY Delroy Monterroso MD [facility] [place] [address] [facility] Referral ID Status Reason Start Date Expiration Date Visits Re quested Visits Authorized [id number] 1 1 Encounter Details Date Type Department Care Team (Late st Contact Info) Description 06/14/2024 7:30 AM EST Anesthesia Event [place] [address] Hosea Ardon MD [facility] [place] [address] Joy Leyva CRNA [facility] [place] [address] Anesthesia Record Procedure Summary Procedure Name Responsible [...] by Zeferino Baker RN PIV 06/13/24; 1200; [id number]-rbldnd catheter system; 20 gauge; metacarpal vein (top [...] temperature probe; 100% silicone; 14; inserted at [facility]; 1; 10; 10; drainage bag; 06/18/24; 1120 [...] Ardon MD 06/15/24 0000 by Yoli Donaldson FLOOR WAXER Cental Line 06/14/24; 0827; Sing le Lumen; [...] Tobacco: Never [facility] Utilities Answer Date Recorded In the past 12 months has [employer], gas, oil, or water [employer] threatened to shut off services in your [...] in the past 12 m [facility], were you homeless or living [...] Procedure Summary Date: 06/14/24 Room / Location: [facility] OR [address] [place] [address] MAIN OR Anesthesia Start: 729 Anesthesia Stop: [...] All Anesthesia Providers: Anesthesiologist: Hosea Ardon MD QUALITY CONTROL INSPECTOR: Joy Leyva CRNA Vitals Value Taken [...] Diagnosis Date Noted Cardiac resynchronization therapy defibrillator ([employer] 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 LV ejection fraction [...] AM Reason For Study: STEMI Exam Location: [facility]. Interpretation Summary -Left ventricular systolic [...] 65 - 199 mg/dL -Type and screen ([facility]/CGP/RAFITA): Result Value Ref Range ABORH Type O POSITIVE PATIENT HISTORY Not Found Expires at [id number] on: 06/16/2024 ANTIBODY SCREEN AUTOMATED Negative T&S only valid at [facility] LAB -POC, GLUCOSE: Result Value Ref Range Glucometer, POC 216 (H) 65 - 199 mg/dL -ABORH RECHECK: Result Value Ref Range ABORH Recheck O POSITIVE -Heparin (unfractionated) Level: Result Value Ref Range UF Heparin 0.76 IU/mL Region - Intrathoracic Cardiac Informed Consent: Plan discussed with QUALITY CONTROL INSPECTOR. Anesthesia Screening documented in this encounter Plan of Treatment Upcoming Encounters Date Type Department Care Team (Late st Contact Info) Description 09/29/2024 2:00 PM EST Office Visit Cardiology at [address] [phone] Moi Falcon MD [facility] [place] [address] documented as of this encounter Visit Diagnoses [...] mL/hr documented in this encounter Care Teams Pig Caster Relationship Specialty Start Date End Date Mauro Berumen MD [address] [place] [address] PCP - General Family Medicine 06/02/24 documented as of this encounter
--- OUTSIDE RECORDS SUMMARY | 2024-09-08 11:00 | XMS_ITS | Encounter Summary ---
Author Organization [facility] [place] [address] Care Team Providers Care Wire Splicer Name Role Phone Mauro Berumen MD Primary Care Provider [phone] Reason for Visit * Auth/Cert Specialty Diagnoses / Procedures Referred By Carroll lopez Referred To Contact Diagnoses STEMI (ST elevation myocardial infarction) STEMI Procedures CARDIAC CATHETERIZATION EMERGENCY Delroy Monterroso MD [facility] [place] [address] [facility] Referral ID Status Reason Start Date Expiration Date Visits Re quested Visits Authorized [id number] 1 1 Encounter Details Date Type Department Care Team (Late st Contact Info) Description 06/13/2024 9:00 AM EST - 06/13/2024 10:00 AM EST [place] [address] Nuha Shen MD [facility] [place] [address] CARDIAC CATHETERIZATION Social History Tobacco Use Types Packs/Day Years Used Date Smoking Tobacco: Every Day Cigarettes Smokeless Tobacco: Never Tobacco Cessation:Ready to Q uit: No; Counseling Given: Yes [facility] Utilities Answer Date Recorded In the past 12 months has jigl electric, gas, oil, or water company threatened [...] Patient Age: 69 y.o. Birthdate: 1955 Language: Vietnamese Race: Choose not to Disclose Ethnicity: Not nor Admit Date: 06/02/2024 Discharge Date: 06/21/2024 Attending Physician: Bobby Loja MD Follow-up Recommendations for Providers: Please continue routine management of cardiovascular risk factors including blood pressure, lipids,glucose, etc. Please note any changes to medications. Patient to follow up with PCP, Mauro Berumen MD, in 1-2 weeks. Patient to follow up with Behavioral Health Rn, Kristen Cardenas in 2-3 weeks. Patient to follow up with Cardiac Surgeon, Dr. Bobby Loja, in 4 wks. Inpatient Provider Contact Information: [facility] [place] of Cardiac [place] [facility] [place] [phone] FAX [phone] Discharge Diagnoses (Hospital Problems) Primary Diagnoses: STEMI [...] performed by Bobby Loja MD [facility] OR PRO CABG, ARTERY-VEIN, TWO N/A 06/14/2024 @CABG, TWO VENOUS GRAFTS & ARTERIAL GRAFT (WRVU 7.93) performed by Bobby Loja MD at [facility] OR PRO ENDOSCOPY W/VIDEO-ASST VEIN HARVEST, CABG N/A 06/14/2024 ENDOSCOPIC HARVEST VEIN(S) FOR CABG (WRVU 0.31) performed by [facility] OR PRO EXC MEDIASTINAL TUMOR N/A 06/14/2024 @EXCISION OF MEDIASTINAL TUMOR (WRVU 19.55) performed by [facility] Loja MD at [facility] OR PRO INSERT INTRA-AORTIC BALLOON ASST DEVICE PERCUTANEOUS N/A 06/13/2024 @INSERTION OF IABP,PERCUTANEOUS (WRVU 4.84) performed by Nuha Shen MD at [facility] CATH [facility]S PRO UNLISTED CARDIAC SURG PROCEDURE N/A 06/14/2024 EXPLORATION AND OVERSEW ATRIAL APPENDAGE (WRVU 5.94) performed by Bobby Loja MD at [facility] Prior To Admission Medications Medications Prior [...] y.o. male with a PMHx of previous NH s/p PCI x3, ICM/HFrEF (LVEF 30%) s/p ICD, DMII, HTN, HLD, remote melanoma, and smoker who presented to [facility] last night via EMS after developing acute, severe chest pain while watching TV. Patient was ruled in for STEMI, given TNK, ASA, plavix, heparin gtt, and sent to [facility] for coronary angiography. 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 He was brought to the microbiology laboratory manager which showed severely calcified left coronary system with notable LCx 75/80% lesions and BALLPOINT PENS ASSEMBLER OM1 with ISR with collateral retrograde filling, [...] 2 tablespoons of dried fruit. Milk and ci-earfu-ksofr yogurt have 15 grams of carbs in a serving. A serving is 1 cup of milk or 3/4 cup (6 oz) of tz-smeyh-pfrfy yogurt. Starchy vegetables have 15 grams of carbs in a serving. A serving is ?? cup of mashed potatoes or sweet potato; 1 cup winter squash; ?? of a small baked potato; ?? cup of cooked beans; or ?? cup cooked corn or green peas. Learn how much carbs to eat each day and at each meal. A dietitian or certified anesthesiologist assistant can teach you how to keep track [...] Bobby Loja and/or the Cardiac Surgery Physician Wire Galvanizer Team may be reached at . Weight: [...] Dr. Bobby Loja. You may use a [place] Track or treadmill but avoid any pulling [...] friends, go to a movie, go to sikhism, etc. Heavy activities: No hunting, skiing, jogging, [...] should resume a low fat, low cholesterol, [place] [employer] Diet/Diabetic diet. Driving: No driving [...] while being managed by your PCP and/or Behavioral Health Rn. For future medication refills, please refer to your PCP and/or Behavioral Health Rn after your discharge from our service. Thank you REMOVE CHEST TUBE SUTURES ON OR AFTER 06/24/2024 Home oxygen therapy: N/A Follow up appointments: You should follow up with your PCP, Mauro Berumen MD, in 1-2 weeks. You should follow up with your Behavioral Health Rn, Dr CARDENAS. You have an appointment with your Cardiac Surgeon, Dr. Bobby Loja, in 4 wks. Cardiac Rehabilitation: George Mehta was seen today regarding participation in the outpatient Phase 2 Cardiac Rehabilitation at [facility]. The patient agrees to a referral to this program. The referral will be sent at discharge and the patient should be contacted by the program within 1-2 weeks from discharge. Future Appointments and Orders Future Orders Complete By Expires Referral to Cardiac Rehab [MMB102 Custom] As directed Process Instructions: If no progress note charted, please enter Clinical details in comments. Scheduling Instructions: Questions: My question or request is: s/p CABG- cardiac rehab at [facility] Referral to Home Health [REF34 Custom] As directed Process Instructions: If no progress note charted, please enter Clinical details in comments. Scheduling Instructions: Comments: Please evaluate George Mehta for admission to Home Health. [address] [facility] [address] (home) Date of : 1955 Inpatient DOCUMENTATION FOR VNA SERVICES (INCLUDING THOSE PATIENTS WITH MEDICARE COVERAGE REQUIRINGHOME VNA SERVICES AND/OR HOSPICE SERVICES) PATIENT'S LOCATION: George Mehta [address] [facility] [address] (home) Telephone Information: Promotional Advertising Assistant's Name: self In discussion with the attending physician, it is certified that this patient is under their care and that they, or a Nurse Practitioner, or Physician Wire Galvanizer who is working directly with them, hada [...] HEALTH AGENCY: [facility]. [address] [place] [id number] RN orders: Cardiopulmonary assessment, incisional assessment, assess [...] issues please call the Cardiology Office at [phone] FOR MEDICARE ONLY: (please delete this section [...] [facility] [place] of [place]iac [place] [facility] [place] [address] FAX [phone] Date: 06/21/2024 CC: MD Antonino Tinajero Joshua R, PA [address] [place] [address] [place] [address] documented in this encounter Discharge Instructions * [...] 2 tablespoons of dried fruit. Milk and tt-lmqmb-vrmmk yogurt have 15 grams of carbs in a serving. A serving is 1 cup of milk or 3/4 cup (6 oz) of ak-zmyvc-libbu yogurt. Starchy vegetables have 15 grams of carbs in a serving. A serving is ?? cup of mashed potatoes or sweet potato; 1 cup winter squash; ?? of a small baked potato; ?? cup of cooked beans; or ?? cup cooked corn or green peas. Learn how much carbs to eat each day and at each meal. A dietitian or certified anesthesiologist assistant can teach you how to keep track [...] Bobby Loja and/or the Cardiac Surgery Physician Wire Galvanizer Team may be reached at . Weight: [...] Dr. Bobby Loja. You may use a [place] Track or treadmill but avoid any pulling [...] friends, go to a movie, go to sikhism, etc. Heavy activities: No hunting, skiing, jogging, [...] should resume a low fat, low cholesterol, [place] Heart [employer] Diet/Diabetic diet. Driving: No driving [...] while being managed by your PCP and/or Behavioral Health Rn. For future medication refills, please refer to your PCP and/or Behavioral Health Rn after your discharge from our service. Thank you REMOVE CHEST TUBE SUTURES ON OR AFTER 06/24/2024 Home oxygen therapy: N/A Follow up appointments: You should follow up with your PCP, Mauro Berumen MD, in 1-2 weeks. You should follow up with your Behavioral Health Rn, Dr CARDENAS. You have an appointment with your Cardiac Surgeon, Dr. Bobby Loja, in 4 wks. Cardiac Rehabilitation: George Mehta was seen today regarding participation in the outpatient Phase 2 Cardiac Rehabilitation at [facility]. The patient agrees to a referral [...] RN - 06/21/2024 8:32 AM EST During [facility] Purposeful Rounding, an assessment of your patient's venous access was performed [facility] the[facility] Access Service. The following tasks [...] RN - 06/21/2024 8:31 AM EST During [facility] Purposeful Rounding, an assessment of your patient's venous access was performed [facility] the[facility]ascular Access Service. The following tasks [...] or weekly) [] Other * Alejandra Baumann, WATCH DIAL PRINTER - 06/21/2024 7:05 AM EST Follow Up [...] MARIALUISA clipping. PMH of chronic HFrEF s/p WIRELESS RETAIL MANAGER/ICD, IDDM2, HTN, HLD, remote melanoma, active [...] juice or regular (not diet) soda 6 Tiangeavers small box of raisins 4 glucose tablets [...] 2 tablespoons of dried fruit. Milk and go-xpwdw-oeexm yogurt have 15 grams of carbs in a serving. A serving is 1 cup of milk or 3/4 cup (6 oz) of uz-woawa-jvrhw yogurt. Starchy vegetables have 15 grams of carbs in a serving. A serving is ?? cup of mashed potatoes or sweet potato; 1 cup winter squash; ?? of a small baked potato; ?? cup of cooked beans; or ?? cup cooked corn or green peas. Learn how much carbs to eat each day and at each meal. A dietitian or certified anesthesiologist assistant can teach you how to keep track [...] cheese, and peanut butter. Alejandra Baumann APRN [facility] Endocrinology Diabetes Management Pager [phone] Weekends please page [phone] * Eric Packer PA - 06/20/2024 7:44 AM EST Cardiac Surgery Progress Note George Mehta is a 69 y.o. male with a history of CAD s/p multiple PCI who presented with an anterior STEMI and was given lytics. Cath showed MV CAD without culprit vessel. He is now 6 Days Post-OpCABGx3 and MARIALUISA clipping. 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 06/20/2024 Between the hours of 1800 - 0600 and on the weekends please page [phone]. * Alejandra Baumann, JOSÉ ANTONIO - 06/20/2024 7:21 AM EST Follow Up Diabetes Consult Patient Interview Blood glucose values and insulin use reviewed. 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 PMH of chronic HFrEF s/p WIRELESS RETAIL MANAGER/ICD, IDDM2, HTN, HLD, remote melanoma, active smoker. 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 Milk and wm-uaipg-pxtpr yogurt have 15 grams of carbs in a serving. A serving is 1 cup of milk or 3/4 cup (6 oz) of ez-zkvst-fbkyk yogurt. Starchy vegetables have 15 grams of carbs in a serving. A serving is ?? cup of mashed potatoes or sweet potato; 1 cup winter squash; ?? of a small baked potato; ?? cup of cooked beans; or ?? cup cooked corn or green peas. Learn how much carbs to eat each day and at each meal. A dietitian or certified anesthesiologist assistant can teach you how to keep track [...] MARIALUISA clipping. 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 Jeffy Hood MD 06/19/2024 Between the hours of 1800 - 0600 and on the weekends please page [phone]. * Alejandra Baumann, WATCH DIAL PRINTER - 06/19/2024 7:09 AM EST Follow Up Diabetes Consult Patient Interview Blood glucose values and insulin use reviewed. Jardiance added back yesterday, wind science and planning low BGto 51. Glargine reduced to 45 [...] MARIALUISA clipping. PMH of chronic HFrEF s/p WIRELESS RETAIL MANAGER/ICD, IDDM2, HTN, HLD, remote melanoma, active smoker. Jardiance added back yesterday. shrimp peeling machine operator low BG to 51. Glargine reduced to [...] 2 tablespoons of dried fruit. Milk and jc-nirke-gozcz yogurt have 15 grams of carbs in a serving. A serving is 1 cup of milk or 3/4 cup (6 oz) of bn-pkguq-pxooy yogurt. Starchy vegetables have 15 grams of carbs in a serving. A serving is ?? cup of mashed potatoes or sweet potato; 1 cup winter squash; ?? of a small baked potato; ?? cup of cooked beans; or ?? cup cooked corn or green peas. Learn how much carbs to eat each day and at each meal. A dietitian or certified anesthesiologist assistant can teach you how to keep track [...] cheese, and peanut butter. Alejandra Baumann APRN [facility] Endocrinology Diabetes Management Pager [phone] Weekends please page [phone] * Hilda Resendez PTA - 06/18/2024 9:19 AM EST Physical Therapy Note 2 Patient profile: George Mehta is a 69 y.o. male with a history of CAD s/p multiple PCI who presented with an anterior STEMI and was given lytics. Cath showed MV CAD without culprit vessel. He is now 1 Day Post-Op CABGx3 and MARIALUISA clipping. PMH of chronic HFrEF s/p WIRELESS RETAIL MANAGER/ICD, IDDM2, HTN, HLD, remote melanoma, active smoker. Interval History: Per last cardiac surgery note on 06/18/2024 Cr improved 1.4 on lasix 40 iv bid -1.5L, made 2.5L urine Coreg, entresto restarted Floor status Social History: Pt lives with his in a 1 level apartment with no steps to enter. 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 He drives. He sleeps in a recliner at baseline. Precautions/Special Considerations: Sternal precautions, PIV, at risk to fall, PPM Mobility and Positioning Recommendations: Pt to utilize no AD, supervision for ambulation and transfers w/ rn staffing as able. Please encourage up to chair [...] least restrictive device Time IN / OUT: 4694-0373 Total Time: 11 minutes; TEF 1 Hilda Resendez PTA Pager: [phone] Physical Therapy Inpatient Rehabilitation Department * Keila [...] MARIALUISA clipping. 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 Restarting jardiance #Active smoker Duoneb prn Dispo: CVCC, Full code, tx to floor Discussed with attending surgeon on rounds this morning. KEILA HANLEY APRN 06/18/2024 Between the hours of 1800 - 0600 and on the weekends please page [phone]. * Alejandra Baumann APRN - 06/17/2024 3:29 [...] MARIALUISA clipping. PMH of chronic HFrEF s/p WIRELESS RETAIL MANAGER/ICD, IDDM2, HTN, HLD, remote melanoma, active [...] based on ISF 20 Alejandra Baumann APRN [facility] Endocrinology Diabetes Management Pager [phone] Weekends please page [phone] 35 minutes were spent over the course [...] MARIALUISA clipping. PMH of chronic HFrEF s/p WIRELESS RETAIL MANAGER/ICD, IDDM2, HTN, HLD, remote melanoma, active [...] 0600 and on the weekends please page [phone]. * Raymond Carlton MD - 06/16/2024 1:11 PM EST CARDIAC CRITICAL CARE ATTENDING STAFF PROGRESS NOTE Patient seen and examined. George Mehta is a 69 y.o. male with: Active Hospital Problems Diagnosis STEMI (ST elevation myocardial infarction) Cardiac resynchronization therapy defibrillator (WIRELESS RETAIL MANAGER-D) - Medtronic Amplia Cardiomyopathy, ischemic Acute on chronic heart failure with reduced ejection fraction (HFrEF, <= 40%) Coronary artery disease involving eagle coronary artery of eagle heart without angina pectoris Type 2 diabetes [...] encouragement provided Patient screened for f/u and remote mortgage underwriter met pt at bedside. Pt [...] unless consulted in the interim. RICHA Simmons Fabric Machine Operator * Octaviano Horvath PA - 06/16/2024 8:07 AM EST Cardiac Surgery Progress Note George Mehta is a 69 y.o. male with a history of CAD s/p multiple PCI who presented with an anterior STEMI and was given lytics. Cath showed MV CAD without culprit vessel. He is now 2 Days Post-OpCABGx3 and MARIALUISA clipping. PMH of chronic HFrEF s/p WIRELESS RETAIL MANAGER/ICD, IDDM2, HTN, HLD, remote melanoma, active [...] 0600 and on the weekends please page [phone]. * Jono Fernandez PT - 06/15/2024 4:09 PM EST Physical Therapy Evaluation Patient profile: George Mehta is a 69 y.o. male with a history of CAD s/p multiple PCI who presented with an anterior STEMI and was given lytics. Cath showed MV CAD without culprit vessel. He is now 1 Day Post-Op CABGx3 and MARIALUISA clipping. PMH of chronic HFrEF s/p WIRELESS RETAIL MANAGER/ICD, IDDM2, HTN, HLD, remote melanoma, active smoker. 24h Events: From OR on Dobutamine IABP removed Bedrest ended ~2100, sedation weaned Extubated ~0200 Dobutamine weaned to 1 this morning, CI 2.6, shut off and repeat CI 2.4 Social History: Pt lives with his in a 1 level apartment with no steps to enter. 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 He drives. He sleeps [...] outlined inthis evaluation. JONO FERNANDEZ, PT Pager: [phone] Physical Therapy Inpatient Rehabilitation Department Time IN / OUT: 5026-8007 Total Time: 33 (eval) minutes * Alejandra Baumann APRN - 06/15/2024 11:39 AM EST Follow Up Diabetes Consult Patient Interview Blood glucose values and insulin use reviewed. Pt remains on an insulin drip today following [id number] MARIALUISA clipping. George continues to complain of [...] MARIALUISA clipping. PMH of chronic HFrEF s/p WIRELESS RETAIL MANAGER/ICD, IDDM2, HTN, HLD, remote melanoma, active [...] based on ISF 20 Alejandra Baumann APRN [facility] Endocrinology Diabetes Management Pager [phone] Weekends please page [phone] 50 minutes were spent over the course [...] elevation myocardial infarction) Cardiac resynchronization therapy defibrillator (WIRELESS RETAIL MANAGER-D) - Medtronic Amplia Cardiomyopathy, ischemic Acute on chronic heart failure with reduced ejection fraction (HFrEF, <= 40%) Coronary artery disease involving eagle coronary artery of eagle heart without angina pectoris Type 2 diabetes [...] with h/o DM, CAD with prior PCI, WIRELESS RETAIL MANAGER-D who presented with crushing chest pain, [...] MARIALUISA clipping. PMH of chronic HFrEF s/p WIRELESS RETAIL MANAGER/ICD, IDDM2, HTN, HLD, remote melanoma, active [...] sternotomy dressing CDI, saphenectomy dressing CDi Tubes/Lines/Drains: Wilber, RIJ, A-line, Mediastinal marcos and bilateral pleural [...] 0600 and on the weekends please page [phone]. * Yoli Donaldson PRESIDENTIAL SUPPORT SPECIALIST - 06/15/2024 5:35 AM EST AMV Protocol: [...] with h/o DM, CAD with prior PCI, WIRELESS RETAIL MANAGER-D who presented with crushing chest pain, [...] with h/o DM, CAD with prior PCI, WIRELESS RETAIL MANAGER-D who presented with crushing chest pain, [...] 0600 and on the weekends please page [phone]. * Chloé Cortez - 06/14/2024 9:36 AM [...] unless consulted in the interim. Chloé Cortez Clearing Tub Worker * Jim Benites MD - 06/13/2024 1:15 [...] - Mildly dilated left ventricle size with ydcxbogf-tu-rglfhwmz decreased LV systolic function. LV ejection fraction [...] ACS/crushing chest pain, likely due to lateral NH, found to have surgical CAD with viability [...] elevation myocardial infarction) Cardiac resynchronization therapy defibrillator (WIRELESS RETAIL MANAGER-D) - Medtronic Amplia Cardiomyopathy, ischemic Acute on chronic heart failure with reduced ejection fraction (HFrEF, <= 40%) Coronary artery disease involving eagle coronary artery of eagle heart without angina pectoris Type 2 diabetes [...] PCP: Mauro Berumen MD PCP phone number: [phone] Date of Admission: 06/02/2024 ( Hospital Day 10 days ) Attending:Ethel Carrillo MD ID: 69 y.o. male with a h/o DM type 2, HTN, HLD, current smoker (2-3 cigarettes/day), HFrEF with anICD for low EF (~30%), and CAD with prior NH x3 with JENNA placed in [place], [facility], PAD, presented to [facility] with 1 hour of retrosternal CP (05/13) while watching TV, found to have STEMI. Active Problems: Active Hospital Problems Diagnosis STEMI (ST elevation myocardial infarction) Cardiac resynchronization therapy defibrillator (WIRELESS RETAIL MANAGER-D) - Medtronic Amplia Cardiomyopathy, ischemic Acute on chronic heart failure with reduced ejection fraction (HFrEF, <= 40%) Coronary artery disease involving eagle coronary artery of eagle heart without angina pectoris Type 2 diabetes [...] in the last 7068 hours. Invalid input(s): [id number] Recent Labs 06/12/24 0425 06/11/24 2356 06/11/24 2025 06/11/24 1624 06/11/24 1108 06/11/24 0748 06/11/24 0357 06/11/24 0050 06/10/24 1922 06/10/24 1735 06/10/24 1125 06/10/24 0746 POCGLU 132 135 210* 81 233* 184 132 144 236* 123 216* 206* Heme No results for input(s): LDH, HAPTOGLOBIN, URICACID in the last 168 hours. ABG (Arterial Blood Gas) No results found for: PHART, PO2ART, MNW1CDI, CKM4ZLX Microbiology: Microbiology Results (Last 30 days) No results found for the last 720 hours. Imaging: Results for orders placed or performed during the hospital encounter of 06/02/24 XR Chest One View (Exam End: 06/03/2024 2:41 AM) Result Value WORKSTATION ID [id number] Impression No radiographically evident acute cardiopulmonary process. Thank you for letting us participate in the care of this patient. If you are a health care provider and have any questions regarding this report, please contact the number below. For patients who have questions please contact the health health and social care teacher that requested your imaging first. Electronically signed by: Corazon Mauro MD, [facility] ([phone]), at 06/03/2024 3:06 AM MRI Cardiac Morphology Function wwo Contrast (Exam End: 06/07/2024 1:10 PM) Result Value WORKSTATION ID [id number] Impression - Findings consistent with an ischemic [...] - Mildly dilated left ventricle size with etmamakv-zz-fkxapomm decreased LV systolic function. LV ejection fraction [...] who have questions please contact the health health and social care teacher that requested your imaging first. Electronically signed by: Kriss Alonzo MD, [facility] ([phone]), at 06/07/2024 2:[address] Chest wo Contrast (Generic) (Exam End: 06/03/2024 4:33 PM) Result Value WORKSTATION ID [id number] Impression Cardiomegaly. Biventricular ICD leads in place. Thank you for letting us participate in the care of this patient. If you are a health care provider and have any questions regarding this report, please contact the number below. For patients who have questions please contact the health health and social care teacher that requested your imaging first. Electronically signed by: Stuart Aponte MD, [facility] ([phone]), at 06/03/2024 4:47 PM XR Chest PA & Lateral (Generic) (Exam End: 06/07/2024 7:03 AM) Result Value WORKSTATION ID [id number] Impression Biventricular ICD leads intact and in [...] who have questions please contact the health health and social care teacher that requested your imaging first. Electronically signed by: Stuart Aponte MD, [facility] ([phone]), at 06/07/2024 10:45 AM TTE: Limited echo performed by fellow recreational vehicle repairer to assess LV function. Left ventricle [...] Daily insulin lispro 1-6 Units Subcutaneous Q4H JNAKI furosemide 40 mg Intravenous Daily sodium chloride [...] ischemic cardiomyopathy with HFrEF (~30% EF), prior NH with stents, DM type 2, HTN, HLD, active smoker, presented with anterior STEMI. Angiography revealed severe multivessel CAD with extensive calcification and YUE 3 flow in all vessels, without a clear culprit lesion. Currently pain-free after TNK, Plavix, ASA, and heparin, with mildly elevated LVEDP at 40 mmHg and mild volume overload. 06/12/24: Patient stable, asymptomatic. Plan to go to microbiology laboratory manager for balloon pump tomorrow, then [...] CODE Dain Colón MD Cardiology, M1-S2, Pager #[phone] 06/12/24 Associated attestation - Ethel Carrillo MD [...] of two midnights or is on the [facility] inpatient only procedure list (status C) due to: acute myocardial infarction requiring titration of IV medication and fluid monitoring and decompensated congestive heart failure requiring IV medication and fluid monitoring Ethel Carrillo MD Cardiovascular Medicine Personal Pager [phone] 06/12/2024 9:12 PM * PastorAlejandra, WATCH DIAL PRINTER - 06/11/2024 4:21 PM EST Images from [...] too aggressive, suggest ICR 1:6 (rule of [id number] = 6.25). George is up and walking [...] ischemic cardiomyopathy with HFrEF (~30% EF), prior NH with stents, DM type 2, HTN, HLD, [...] ac, metformin 1000mg BID Alejandra Baumann APRN [facility] Endocrinology Diabetes Management Pager [phone] Weekends please page [phone] 35 minutes were spent over the course [...] PCP: Mauro Berumen MD PCP phone number: [phone] Date of Admission: 06/02/2024 ( Hospital Day 9 days ) Attending:Melida Valdes MD ID: 69 y.o. male with a h/o DM type 2, HTN, HLD, current smoker (2-3 cigarettes/day), HFrEF with anICD for low EF (~30%), and CAD with prior NH x3 with JENNA placed in [place], Melanoma, PAD, presented to [facility] with 1 hour of retrosternal CP (05/13) while watching TV, found to have STEMI. Active Problems: Active Hospital Problems Diagnosis STEMI (ST elevation myocardial infarction) Cardiac resynchronization therapy defibrillator (WIRELESS RETAIL MANAGER-D) - Medtronic Amplia Cardiomyopathy, ischemic Acute on chronic heart failure with reduced ejection fraction (HFrEF, <= 40%) Coronary artery disease involving eagle coronary artery of eagle heart without angina pectoris Type 2 diabetes [...] in the last 7068 hours. Invalid input(s): [id number] Recent Labs 06/11/24 0357 06/11/24 0050 06/10/24 1922 06/10/24 1735 06/10/24 1125 06/10/24 0746 06/10/24 0423 06/10/24 0005 06/09/24 2036 06/09/24 1727 06/09/24 1152 06/09/24 0810 POCGLU 132 144 236* 123 216* 206* 154 125 197 174 211* 209* Heme No results for input(s): LDH, HAPTOGLOBIN, URICACID in the last 168 hours. ABG (Arterial Blood Gas) No results found for: PHART, PO2ART, RXY9IEO, XYV1NDU Microbiology: Microbiology Results (Last 30 days) No results found for the last 720 hours. Imaging: Results for orders placed or performed during the hospital encounter of 06/02/24 XR Chest One View (Exam End: 06/03/2024 2:41 AM) Result Value WORKSTATION ID [id number] Impression No radiographically evident acute cardiopulmonary process. Thank you for letting us participate in the care of this patient. If you are a health care provider and have any questions regarding this report, please contact the number below. For patients who have questions please contact the health health and social care teacher that requested your imaging first. Electronically signed by: Corazon Mauro MD, [facility] ([phone]), at 06/03/2024 3:06 AM MRI Cardiac Morphology Function wwo Contrast (Exam End: 06/07/2024 1:10 PM) Result Value WORKSTATION ID [id number] Impression - Findings consistent with an ischemic [...] - Mildly dilated left ventricle size with yfqhnxno-av-wdrqnwpl decreased LV systolic function. LV ejection fraction [...] who have questions please contact the health health and social care teacher that requested your imaging first. Electronically signed by: Kriss Alonzo MD, [facility] ([phone]), at 06/07/2024 2:[address] Chest wo Contrast (Generic) (Exam End: 06/03/2024 4:33 PM) Result Value WORKSTATION ID [id number] Impression Cardiomegaly. Biventricular ICD leads in place. Thank you for letting us participate in the care of this patient. If you are a health care provider and have any questions regarding this report, please contact the number below. For patients who have questions please contact the health health and social care teacher that requested your imaging first. Electronically signed by: Stuart Aponte MD, [facility] ([phone]), at 06/03/2024 4:47 PM XR Chest PA & Lateral (Generic) (Exam End: 06/07/2024 7:03 AM) Result Value WORKSTATION ID [id number] Impression Biventricular ICD leads intact and in [...] who have questions please contact the health health and social care teacher that requested your imaging first. Electronically signed by: Stuart Aponte MD, [facility] ([phone]), at 06/07/2024 10:45 AM TTE: Limited echo performed by fellow recreational vehicle repairer to assess LV function. Left ventricle [...] Infusions: heparin (porcine) infusion 1,400 Units/hr (06/10/24 2962) PRN Meds:.insulin lispro, glucose 40% oral geL [...] ischemic cardiomyopathy with HFrEF (~30% EF), prior NH with stents, DM type 2, HTN, HLD, [...] on placing this weekend and transfer to [facility], likely Friday. #ASCVD / STEMI: -Holding Plavix; continue ASA and heparin gtt. -Monitor telmetry -TTE -Viability planning per CT surgery - CT chest (complete) - Carotid duplex bilat (complete) - Cardiac MR (scheduled today Thursday 06/07) - Will need balloon pump prior to CABG on Friday, likely Friday then transfer to [facility] #HFrEF (Ischemic Cardiomyopathy): -Monitor I&O and [...] CODE Dain Colón MD Cardiology, M1-S2, Pager #[phone] 06/11/24 Associated attestation - Ethel Carrillo MD [...] of two midnights or is on the [facility] inpatient only procedure list (status C) due to: acute myocardial infarction requiring titration of IV medication and fluid monitoring and decompensated congestive heart failure requiring IV medication and fluid monitoring Ethel Carrilol MD Cardiovascular Medicine Personal Pager [phone] 06/11/2024 9:35 PM * Hilary Belle - 06/10/2024 12:39 PM EST Nutrition Services Note George Mehta is a 69 y.o. male Reason for intervention: hospital day 9 Nutrition Plan: Continue diet order: 60/60/75 CHO Level 2 Encourage good PO Lasix and Insulin noted Monitor weight Patient scheduled for a hospital day 9 nutrition evaluation. Electrical Research Engineer attempted to meet with pt at [...] unless consulted in the interim. Hilary Belle Fabric Machine Operator * Mariia Montero RN - 06/10/2024 12:23 PM EST I have met with the patient to: discuss discharge planning needs. provide the [facility], Office of Care Management letter from the Juvenile Officer pertaining to rehab referrals. provide a letter describing our affiliations within the [facility] and educate about their right to choose where referrals are sent. provide a list of Home Health Agencies / Durable Medical Equipment vendors which serve their preferred geographic area. provided patient with CMS Star Quality Rating handout. They have requested referrals to: [facility] [address] [place] [id number] RN / PT Anticipated d/c date: 06/20/24 Note routed to a Chainstitch Tunnel Elastic Operator who will communicate referrals to facilities and provide any required information. * Dain Colón MD - 06/10/2024 7:17 AM EST Images from the original note were not included. . Cardiology Progress Note Patient info: Name: George Mehta : 1955 PCP: Mauro Berumen MD PCP phone number: [phone] Date of Admission: 06/02/2024 ( Hospital Day 8 days ) Attending:Melida Valdes MD ID: 69 y.o. male with a h/o DM type 2, HTN, HLD, current smoker (2-3 cigarettes/day), HFrEF with anICD for low EF (~30%), and CAD with prior NH x3 with JENNA placed in [place], Melanoma, PAD, presented to [facility] with 1 hour of retrosternal CP (05/13) while watching TV, found to have STEMI. Active Problems: Active Hospital Problems Diagnosis STEMI (ST elevation myocardial infarction) Cardiac resynchronization therapy defibrillator (WIRELESS RETAIL MANAGER-D) - Medtronic Amplia Cardiomyopathy, ischemic Acute on chronic heart failure with reduced ejection fraction (HFrEF, <= 40%) Coronary artery disease involving eagle coronary artery of eagle heart without angina pectoris Type 2 diabetes [...] in the last 7068 hours. Invalid input(s): [id number] Recent Labs 06/10/24 0423 06/10/24 0005 06/09/24 2036 06/09/24 1727 06/09/24 1152 06/09/24 0810 06/09/24 0440 06/09/24 0034 06/08/24 2027 06/08/24 1616 06/08/24 1235 06/08/24 0810 POCGLU 154 125 197 174 211* 209* 131 186 176 159 226* 190 Heme No results for input(s): LDH, HAPTOGLOBIN, URICACID in the last 168 hours. ABG (Arterial Blood Gas) No results found for: PHART, PO2ART, KEX2QKJ, NFV9ENI Microbiology: Microbiology Results (Last 30 days) No results found for the last 720 hours. Imaging: Results for orders placed or performed during the hospital encounter of 06/02/24 XR Chest One View (Exam End: 06/03/2024 2:41 AM) Result Value WORKSTATION ID [id number] Impression No radiographically evident acute cardiopulmonary process. Thank you for letting us participate in the care of this patient. If you are a health care provider and have any questions regarding this report, please contact the number below. For patients who have questions please contact the health health and social care teacher that requested your imaging first. Electronically signed by: Corazon Mauro MD, [facility] ([phone]), at 06/03/2024 3:06 AM MRI Cardiac Morphology Function wwo Contrast (Exam End: 06/07/2024 1:10 PM) Result Value WORKSTATION ID [id number] Impression - Findings consistent with an ischemic [...] - Mildly dilated left ventricle size with phxhrdzd-cp-dxxoliib decreased LV systolic function. LV ejection fraction [...] who have questions please contact the health health and social care teacher that requested your imaging first. Electronically signed by: Kriss Alonzo MD, [facility] ([phone]), at 06/07/2024 2:[address] Chest wo Contrast (Generic) (Exam End: 06/03/2024 4:33 PM) Result Value WORKSTATION ID [id number] Impression Cardiomegaly. Biventricular ICD leads in place. Thank you for letting us participate in the care of this patient. If you are a health care provider and have any questions regarding this report, please contact the number below. For patients who have questions please contact the health health and social care teacher that requested your imaging first. Electronically signed by: Stuart Aponte MD, [facility] ([phone]), at 06/03/2024 4:47 PM XR Chest PA & Lateral (Generic) (Exam End: 06/07/2024 7:03 AM) Result Value WORKSTATION ID [id number] Impression Biventricular ICD leads intact and in [...] who have questions please contact the health health and social care teacher that requested your imaging first. Electronically signed by: Stuart Aponte MD, [facility] ([phone]), at 06/07/2024 10:45 AM TTE: Limited echo performed by fellow recreational vehicle repairer to assess LV function. Left ventricle [...] ischemic cardiomyopathy with HFrEF (~30% EF), prior NH with stents, DM type 2, HTN, HLD, [...] on placing this weekend and transfer to [facility], likely Friday. #ASCVD / STEMI: -Holding Plavix; continue ASA and heparin gtt. -Consult CT surgery for potential open revascularization. -Monitor telmetry -TTE -Viability planning per CT surgery - CT chest (complete) - Carotid duplex bilat (complete) - Cardiac MR (scheduled today Thursday 06/07) - Will need balloon pump prior to CABG on Friday, likely Friday then transfer to [facility] #HFrEF (Ischemic Cardiomyopathy): -Monitor I&O and [...] CODE Dain Colón MD Cardiology, M1-S2, Pager #[phone] 06/10/24 Associated attestation - Melida Valdes MD [...] a lytic and brought directly to the Promotions Coordinator. Cardiac catheterization demonstrated multivessel disease with severe [...] who is agreeable Melida Valdes MD Staff Behavioral Health Rn * Cherelle Fregoso, JOSÉ ANTONIO - 06/09/2024 [...] ischemic cardiomyopathy with HFrEF (~30% EF), prior NH with stents, DM type 2, HTN, HLD, [...] PCP: Mauro Berumen MD PCP phone number: [phone] Date of Admission: 06/02/2024 ( Hospital Day 7 days ) Attending:Meldia Valdes MD ID: 69 y.o. male with a h/o DM type 2, HTN, HLD, current smoker (2-3 cigarettes/day), HFrEF with anICD for low EF (~30%), and CAD with prior NH x3 with JENNA placed in [place], Melanoma, PAD, presented to [facility] with 1 hour of retrosternal CP (05/13) while watching TV, found to have STEMI. Active Problems: Active Hospital Problems Diagnosis STEMI (ST elevation myocardial infarction) Acute on chronic heart failure with reduced ejection fraction (HFrEF, <= 40%) Coronary artery disease involving eagle coronary artery of eagle heart without angina pectoris Type 2 diabetes [...] in the last 7068 hours. Invalid input(s): [id number] Recent Labs 06/09/24 0440 06/09/24 0034 06/08/24 2027 06/08/24 1616 06/08/24 1235 06/08/24 0810 06/08/24 0409 06/07/24 2357 06/07/24 2005 06/07/24 1631 06/07/24 1105 06/07/24 1103 POCGLU 131 186 176 159 226* 190 151 188 118 174 221* 250* Heme No results for input(s): LDH, HAPTOGLOBIN, URICACID in the last 168 hours. ABG (Arterial Blood Gas) No results found for: PHART, PO2ART, JXM3PRO, UAJ1KXK Microbiology: Microbiology Results (Last 30 days) No results found for the last 720 hours. Imaging: Results for orders placed or performed during the hospital encounter of 06/02/24 XR Chest One View (Exam End: 06/03/2024 2:41 AM) Result Value WORKSTATION ID [id number] Impression No radiographically evident acute cardiopulmonary process. Thank you for letting us participate in the care of this patient. If you are a health care provider and have any questions regarding this report, please contact the number below. For patients who have questions please contact the health health and social care teacher that requested your imaging first. Electronically signed by: Corazon Mauro MD, [facility] ([phone]), at 06/03/2024 3:06 AM MRI Cardiac Morphology Function wwo Contrast (Exam End: 06/07/2024 1:10 PM) Result Value WORKSTATION ID [id number] Impression - Findings consistent with an ischemic [...] - Mildly dilated left ventricle size with qalnfzqv-nh-jsotyaob decreased LV systolic function. LV ejection fraction [...] who have questions please contact the health health and social care teacher that requested your imaging first. Electronically signed by: Kriss Alonzo MD, [facility] ([phone]), at 06/07/2024 2:[address] Chest wo Contrast (Generic) (Exam End: 06/03/2024 4:33 PM) Result Value WORKSTATION ID [id number] Impression Cardiomegaly. Biventricular ICD leads in place. Thank you for letting us participate in the care of this patient. If you are a health care provider and have any questions regarding this report, please contact the number below. For patients who have questions please contact the health health and social care teacher that requested your imaging first. Electronically signed by: Stuart Aponte MD, [facility] ([phone]), at 06/03/2024 4:47 PM XR Chest PA & Lateral (Generic) (Exam End: 06/07/2024 7:03 AM) Result Value WORKSTATION ID [id number] Impression Biventricular ICD leads intact and in [...] who have questions please contact the health health and social care teacher that requested your imaging first. : Limited echo performed by fellow recreational vehicle repairer to assess LV function. Left ventricle [...] Infusions: heparin (porcine) infusion 1,400 Units/hr (06/08/24 407) PRN Meds:.glucose 40% oral geL OR dextrose [...] ischemic cardiomyopathy with HFrEF (~30% EF), prior NH with stents, DM type 2, HTN, HLD, [...] CODE Dain Colón MD Cardiology, M1-S2, Pager #[phone] 06/09/24 Associated attestation - Melida Valdes MD [...] a lytic and brought directly to the Promotions Coordinator. Cardiac catheterization demonstrated multivessel disease with severe [...] Friday with balloon pump insertion low EF. Meliad Valdes MD Staff Behavioral Health Rn * Alejandra Baumann, WATCH DIAL PRINTER - 06/08/2024 4:10 PM EST Images from [...] ischemic cardiomyopathy with HFrEF (~30% EF), prior NH with stents, DM type 2, HTN, HLD, [...] to optimize glucose control Alejandra Baumann APRN [facility] Endocrinology Diabetes Management Pager [phone] Weekends please page [phone] 35 minutes were spent over the course [...] PCP: Mauro Berumen MD PCP phone number: [phone] Date of Admission: 06/02/2024 ( Hospital Day 6 days ) Attending:Melida Valdes MD ID: 69 y.o. male with a h/o DM type 2, HTN, HLD, current smoker (2-3 cigarettes/day), HFrEF with anICD for low EF (~30%), and CAD with prior NH x3 with JENNA placed in [place], Melanoma, PAD, presented to [facility] with 1 hour of retrosternal CP (05/13) while watching TV, found to have STEMI. Active Problems: Active Hospital Problems Diagnosis STEMI (ST elevation myocardial infarction) Acute on chronic heart failure with reduced ejection fraction (HFrEF, <= 40%) Coronary artery disease involving eagle coronary artery of eagle heart without angina pectoris Type 2 diabetes [...] in the last 7068 hours. Invalid input(s): [id number] Recent Labs 06/08/24 0409 06/07/24 2357 06/07/24 2005 06/07/24 1631 06/07/24 1105 06/07/24 1103 06/07/24 0745 06/07/24 0425 06/07/24 0008 06/06/24 2018 06/06/24 1539 06/06/24 1339 POCGLU 151 188 118 174 221* 250* 175 127 182 143 147 317* Heme No results for input(s): LDH, HAPTOGLOBIN, URICACID in the last 168 hours. ABG (Arterial Blood Gas) No results found for: PHART, PO2ART, GYQ4ULD, UDJ5UDY Microbiology: Microbiology Results (Last 30 days) No results found for the last 720 hours. Imaging: Results for orders placed or performed during the hospital encounter of 06/02/24 XR Chest One View (Exam End: 06/03/2024 2:41 AM) Result Value WORKSTATION ID [id number] Impression No radiographically evident acute cardiopulmonary process. Thank you for letting us participate in the care of this patient. If you are a health care provider and have any questions regarding this report, please contact the number below. For patients who have questions please contact the health health and social care teacher that requested your imaging first. Electronically signed by: Corazon Mauro MD, [facility] ([phone]), at 06/03/2024 3:06 AM MRI Cardiac Morphology Function wwo Contrast (Exam End: 06/07/2024 1:10 PM) Result Value WORKSTATION ID [id number] Impression - Findings consistent with an ischemic [...] - Mildly dilated left ventricle size with ljgbtarc-is-mwkppogi decreased LV systolic function. LV ejection fraction [...] who have questions please contact the health health and social care teacher that requested your imaging first. Electronically signed by: Kriss Alonzo MD, [facility] ([phone]), at 06/07/2024 2:[address] Chest wo Contrast (Generic) (Exam End: 06/03/2024 4:33 PM) Result Value WORKSTATION ID [id number] Impression Cardiomegaly. Biventricular ICD leads in place. Thank you for letting us participate in the care of this patient. If you are a health care provider and have any questions regarding this report, please contact the number below. For patients who have questions please contact the health health and social care teacher that requested your imaging first. Electronically signed by: Stuart Aponte MD, [facility] ([phone]), at 06/03/2024 4:47 PM XR Chest PA & Lateral (Generic) (Exam End: 06/07/2024 7:03 AM) Result Value WORKSTATION ID [id number] Impression Biventricular ICD leads intact and in [...] who have questions please contact the health health and social care teacher that requested your imaging first. Electronically signed by: Stuart Aponte MD, [facility] ([phone]), at 06/07/2024 10:45 AM TTE: Limited echo performed by fellow recreational vehicle repairer to assess LV function. Left ventricle [...] ischemic cardiomyopathy with HFrEF (~30% EF), prior NH with stents, DM type 2, HTN, HLD, [...] CODE Dain Colón MD Cardiology, M1-S2, Pager #[phone] 06/08/24 Associated attestation - Melida Valdes MD [...] a lytic and brought directly to the Promotions Coordinator. Cardiac catheterization demonstrated multivessel disease with severe [...] Otherwise clinically stable Melida Valdes MD Staff Behavioral Health Rn * Ross Manuel PA - 06/07/2024 12:00 PM EST Cardiac Electrophysiology CIED Interrogation/Programming Note Asked by MRI staff to evaluate and program Medtronic WIRELESS RETAIL MANAGER-D to allow for MR imaging. Patient Active Problem List Diagnosis ','STEMI (ST elevation myocardial infarction) Acute on chronic heart failure with reduced ejection fraction (HFrEF, <= 40%) Coronary artery disease involving eagle coronary artery of eagle heart without angina pectoris Type 2 diabetes mellitus Device Data: [employer] MRI Quad WIRELESS RETAIL MANAGER-D [id number] #[id number] 06/16/2019 RA Medtronic 4076 CapSureFix Novus [id number] 06/16/2019 RV Medtronic [id number] 06/16/2019 LV Medtronic 4298 Attain Performa MRI [id number] 06/16/2019 DDD @ 50/130/130 Adaptive Bi-V and LV VF >188bpm ATP, 35j x6 FVT >188-222bpm burst 2, 35jx5 VT Battery longevity: 2.5yrs; charge time 4s P wave: 2.3mV R wave: >20.0mV Atrial impedance: 458 ohms RV impedance: 646 ohms LV impedance: 722 ohms Atrial threshold: 0.5V @ 0.4ms RV threshold: LV threshold: 1.75V @ 0.4ms AP 0.2% BID WRITER 97.7% AT/AF 0% Impression and Plan: 1. Interrogated device to determine suitability for MRI 2. Programmed to MRI safe mode - VOO @ 70 3. Scan performed 4. Programming restored to baseline settings 5. Reinterrogated to verify appropriate function and settings 6. Device follow up as previously scheduled Provider: HENOK Meyer EP Consult attending physician: Libby Barton MD EP Consult positional pager #[phone](EPMD) EP Device interrogation positional pager # [phone] * Dain Colón MD - 06/07/2024 7:09 AM EST Images from the original note were not included. . Cardiology Progress Note Patient info: Name: Geroge Mehta : 1955 PCP: Mauro Berumen MD PCP phone number: [phone] Date of Admission: 06/02/2024 ( Hospital Day 5 days ) Attending:Melida Valdes MD ID: 69 y.o. male with a h/o DM type 2, HTN, HLD, current smoker (2-3 cigarettes/day), HFrEF with anICD for low EF (~30%), and CAD with prior NH x3 with JENNA placed in [place], Melanoma, PAD, presented to [facility] with 1 hour of retrosternal CP (05/13) while watching TV, found to have STEMI. Active Problems: Active Hospital Problems Diagnosis STEMI (ST elevation myocardial infarction) Acute on chronic heart failure with reduced ejection fraction (HFrEF, <= 40%) Coronary artery disease involving eagle coronary artery of eagle heart without angina pectoris Type 2 diabetes [...] in the last 7068 hours. Invalid input(s): [id number] Recent Labs 06/07/24 0425 06/07/24 0008 06/06/24 2018 06/06/24 1539 06/06/24 1339 06/06/24 1134 06/06/24 0757 06/06/24 0653 06/05/24 2231 06/05/24 1622 06/05/24 1134 06/05/24 0727 POCGLU 127 182 143 147 317* 264* 195 187 238* 205* 211* 166 Heme No results for input(s): LDH, HAPTOGLOBIN, URICACID in the last 168 hours. ABG (Arterial Blood Gas) No results found for: PHART, PO2ART, FRZ5MFQ, ZCO1JQK Microbiology: Microbiology Results (Last 30 days) No results found for the last 720 hours. Imaging: Results for orders placed or performed during the hospital encounter of 06/02/24 XR Chest One View (Exam End: 06/03/2024 2:41 AM) Result Value WORKSTATION ID [id number] Impression No radiographically evident acute cardiopulmonary process. Thank you for letting us participate in the care of this patient. If you are a health care provider and have any questions regarding this report, please contact the number below. For patients who have questions please contact the health health and social care teacher that requested your imaging first. Electronically signed by: Corazon Mauro MD, [facility] ([phone]), at 06/03/2024 3:[address] Chest wo Contrast (Generic) (Exam End: 06/03/2024 4:33 PM) Result Value WORKSTATION ID [id number] Impression Cardiomegaly. Biventricular ICD leads in place. Thank you for letting us participate in the care of this patient. If you are a health care provider and have any questions regarding this report, please contact the number below. For patients who have questions please contact the health health and social care teacher that requested your imaging first. Electronically signed by: Stuart Aponte MD, [facility] ([phone]), at 06/03/2024 4:47 PM TTE: Limited echo performed by fellow recreational vehicle repairer to assess LV function. Left ventricle [...] ischemic cardiomyopathy with HFrEF (~30% EF), prior NH with stents, DM type 2, HTN, HLD, [...] Dain Colón MD (PGY-1) Cardiology, M1-S2, Pager #[phone] 06/07/24 Associated attestation - Melida Valdes MD [...] a lytic and brought directly to the Promotions Coordinator. Cardiac catheterization demonstrated multivessel disease with severe [...] for further guidance. Melida Valdes MD Staff Behavioral Health Rn * Dain Colón MD - 06/06/2024 7:17 AM EST Images from the original note were not included. . Cardiology Progress Note Patient info: Name: George Mehta : 1955 PCP: Mauro Berumen MD PCP phone number: [phone] Date of Admission: 06/02/2024 ( Hospital Day 4 days ) Attending:Melida Valdes MD ID: 69 y.o. male with a h/o DM type 2, HTN, HLD, current smoker (2-3 cigarettes/day), HFrEF with anICD for low EF (~30%), and CAD with prior NH x3 with JENNA placed in [place], Melanoma, PAD, presented to [facility] with 1 hour of retrosternal CP (05/13) while watching TV, found to have STEMI. Active Problems: Active Hospital Problems Diagnosis STEMI (ST elevation myocardial infarction) Acute on chronic heart failure with reduced ejection fraction (HFrEF, <= 40%) Coronary artery disease involving eagle coronary artery of eagle heart without angina pectoris Type 2 diabetes [...] in the last 7068 hours. Invalid input(s): [id number] Recent Labs 06/06/24 0653 06/05/24 2231 06/05/24 1622 06/05/24 1134 06/05/24 0727 06/04/24 1943 06/04/24 1526 06/04/24 1109 06/04/24 0711 06/03/24 2005 06/03/24 1748 06/03/24 1114 POCGLU 187 238* 205* 211* 166 175 154 188 182 136 191 166 Heme No results for input(s): LDH, HAPTOGLOBIN, URICACID in the last 168 hours. ABG (Arterial Blood Gas) No results found for: PHART, PO2ART, OVK3KJG, OMY5CDW Microbiology: Microbiology Results (Last 30 days) No results found for the last 720 hours. Imaging: Results for orders placed or performed during the hospital encounter of 06/02/24 XR Chest One View (Exam End: 06/03/2024 2:41 AM) Result Value WORKSTATION ID [id number] Impression No radiographically evident acute cardiopulmonary process. Thank you for letting us participate in the care of this patient. If you are a health care provider and have any questions regarding this report, please contact the number below. For patients who have questions please contact the health health and social care teacher that requested your imaging first. Electronically signed by: Corazon Mauro MD, [facility] ([phone]), at 06/03/2024 3:[address] Chest wo Contrast (Generic) (Exam End: 06/03/2024 4:33 PM) Result Value WORKSTATION ID [id number] Impression Cardiomegaly. Biventricular ICD leads in place. Thank you for letting us participate in the care of this patient. If you are a health care provider and have any questions regarding this report, please contact the number below. For patients who have questions please contact the health health and social care teacher that requested your imaging first. Electronically signed by: Stuart Aponte MD, [facility] ([phone]), at 06/03/2024 4:47 PM TTE: Limited echo performed by fellow recreational vehicle repairer to assess LV function. Left ventricle [...] ischemic cardiomyopathy with HFrEF (~30% EF), prior NH with stents, DM type 2, HTN, HLD, [...] Dain Colón MD (PGY-1) Cardiology, M1-S2, Pager #[phone] 06/06/24 Associated attestation - Melida Valdes MD [...] a lytic and brought directly to the Promotions Coordinator. Cardiac catheterization demonstrated multivessel disease with severe [...] management. Help appreciated Melida Valdes MD Staff Behavioral Health Rn * Frederick Dunn MD - 06/05/2024 8:13 AM EDT Images from the original note were not included. . Cardiology Progress Note Patient info: Name: George Mehta : 1955 PCP: Mauro Berumen MD PCP phone number: [phone] Date of Admission: 06/02/2024 ( Hospital Day 3 days ) Attending:Melida Valdes MD ID: 69 y.o. male with a h/o DM type 2, HTN, HLD, current smoker (2-3 cigarettes/day), HFrEF with anICD for low EF (~30%), and CAD with prior NH x3 with JENNA placed in [place], Melanoma, PAD, presented to [facility] with 1 hour of retrosternal CP [...] in the last 7068 hours. Invalid input(s): [id number] Recent Labs 06/05/24 1134 06/05/24 0727 06/04/24 1943 06/04/24 1526 06/04/24 1109 06/04/24 0711 06/03/24 2005 06/03/24 1748 06/03/24 1114 06/03/24 0754 06/02/24 2331 POCGLU 211* 166 175 154 188 182 136 191 166 195 156 Heme No results for input(s): LDH, HAPTOGLOBIN, URICACID in the last 168 hours. ABG (Arterial Blood Gas) No results found for: PHART, PO2ART, YRF9ATK, QZU7PEN Microbiology: Microbiology Results (Last 30 days) No results found for the last 720 hours. Imaging: Results for orders placed or performed during the hospital encounter of 06/02/24 XR Chest One View (Exam End: 06/03/2024 2:41 AM) Result Value WORKSTATION ID [id number] Impression No radiographically evident acute cardiopulmonary process. Thank you for letting us participate in the care of this patient. If you are a health care provider and have any questions regarding this report, please contact the number below. For patients who have questions please contact the health health and social care teacher that requested your imaging first. Electronically signed by: Corazon Mauro MD, [facility] ([phone]), at 06/03/2024 3:[address] Chest wo Contrast (Generic) (Exam End: 06/03/2024 4:33 PM) Result Value WORKSTATION ID [id number] Impression Cardiomegaly. Biventricular ICD leads in place. Thank you for letting us participate in the care of this patient. If you are a health care provider and have any questions regarding this report, please contact the number below. For patients who have questions please contact the health health and social care teacher that requested your imaging first. Electronically signed by: Stuart Aponte MD, [facility] ([phone]), at 06/03/2024 4:47 PM TTE: Limited echo performed by fellow recreational vehicle repairer to assess LV function. Left ventricle [...] ischemic cardiomyopathy with HFrEF (~30% EF), prior NH with stents, DM type 2, HTN, HLD, [...] all the information they need regarding the WIRELESS RETAIL MANAGER-D.Plan for MRI tomorrow. Starting 40 mg [...] a lytic and brought directly to the Promotions Coordinator. Cardiac catheterization demonstrated multivessel disease with severe [...] maintenance of 40. Melida Valdes MD Staff Behavioral Health Rn * Migel Javier RN - 06/05/2024 6:21 AM EDT Implanted device record scanned into: Chart Review-->Media-->External Cardiology-->03/25/2024. [employer] MRI Quad CRTD [id number] Serial #: [id number] DDD mode A + Bi/V Rates 50-130 Migel Javier RN * Dain Colón MD - 06/04/2024 11:16 AM EDT Implant Records Requested Type: WIRELESS RETAIL MANAGER-D Mechanical Operator: [employer] Product: [id number] Amplia MRI MRI compatibility: Compatible for 1.5-3 T Model #: [id number] Placed at: [place], [place] Records requested for MRI: 1. Operative report 2. Implant log I requested that these records be sent to our MRI department, Dain Colón MD 06/04/24 11:58 AM * Dain Colón MD - 06/04/2024 6:57 AM EDT Images from the original note were not included. . Cardiology Progress Note Patient info: Name: George Mehta : 1955 PCP: Mauro Berumen MD PCP phone number: [phone] Date of Admission: 06/02/2024 ( Hospital Day 2 days ) Attending:Delroy Fofana MD ID: 69 y.o. male with a h/o DM type 2, HTN, HLD, current smoker (2-3 cigarettes/day), HFrEF with anICD for low EF (~30%), and CAD with prior NH x3 with JENNA placed in [place], Melanoma, PAD, presented to [facility] with 1 hour of retrosternal CP [...] in the last 7068 hours. Invalid input(s): [id number] Recent Labs 06/03/24 2005 06/03/24 1748 06/03/24 1114 06/03/24 0754 06/02/24 2331 POCGLU 136 191 166 195 156 Heme No results for input(s): LDH, HAPTOGLOBIN, URICACID in the last 168 hours. ABG (Arterial Blood Gas) No results found for: PHART, PO2ART, NCA6ILB, FOK7CBB Microbiology: Microbiology Results (Last 30 days) No results found for the last 720 hours. Imaging: Results for orders placed or performed during the hospital encounter of 06/02/24 XR Chest One View (Exam End: 06/03/2024 2:41 AM) Result Value WORKSTATION ID [id number] Impression No radiographically evident acute cardiopulmonary process. Thank you for letting us participate in the care of this patient. If you are a health care provider and have any questions regarding this report, please contact the number below. For patients who have questions please contact the health health and social care teacher that requested your imaging first. Electronically signed by: Corazon Mauro MD, [facility] ([phone]), at 06/03/2024 3:[address] Chest wo Contrast (Generic) (Exam End: 06/03/2024 4:33 PM) Result Value WORKSTATION ID [id number] Impression Cardiomegaly. Biventricular ICD leads in place. Thank you for letting us participate in the care of this patient. If you are a health care provider and have any questions regarding this report, please contact the number below. For patients who have questions please contact the health health and social care teacher that requested your imaging first. Electronically signed by: Stuart Aponte MD, [facility] ([phone]), at 06/03/2024 4:47 PM TTE: Limited echo performed by fellow recreational vehicle repairer to assess LV function. Left ventricle [...] ischemic cardiomyopathy with HFrEF (~30% EF), prior NH with stents, DM type 2, HTN, HLD, [...] -Lasix 40 mg IV given in the microbiology laboratory manager; assess diuretic response, consider re-dosing [...] a lytic and brought directly to the Promotions Coordinator. Cardiac catheterization demonstrated multivessel disease with severe [...] Friday -Diuresis with Jovanni Valdes MD Staff Behavioral Health Rn * Fatmata Mcallister PT - 06/03/2024 3:29 [...] vs PCI) Fatmata Mcallister PT, MSPT Pager [phone] Inpatient Physical Therapy * Marlin Gómez MD [...] Marlin Gómez MD Cardiology S2, Pager # [phone] 06/03/2024 * Delroy Fofana MD - 06/03/2024 7:16 AM EDT Images from the original note were not included. . Cardiology Progress Note Patient info: Name: George Mehta : 1955 PCP: Mauro Berumen MD PCP phone number: [phone] Date of Admission: 06/02/2024 ( Hospital Day 1 day ) Attending:Nuha Rojo MD ID: 69 y.o. male with a h/o DM type 2, HTN, HLD, current smoker (2-3 cigarettes/day), HFrEF with anICD for low EF (~30%), and CAD with prior NH x3 with JENNA placed in [place], Melanoma, PAD, presented to [facility] with 1 hour of retrosternal CP [...] in the last 7068 hours. Invalid input(s): [id number] Recent Labs 06/02/24 2331 POCGLU 156 Heme No results for input(s): LDH, HAPTOGLOBIN, URICACID in the last 168 hours. ABG (Arterial Blood Gas) No results found for: PHART, PO2ART, TAG8QSV, IUQ5OGE Microbiology: Microbiology Results (Last 30 days) No results found for the last 720 hours. Imaging: Results for orders placed or performed during the hospital encounter of 06/02/24 XR Chest One View (Exam End: 06/03/2024 2:41 AM) Result Value WORKSTATION ID [id number] Impression No radiographically evident acute cardiopulmonary process. Thank you for letting us participate in the care of this patient. If you are a health care provider and have any questions regarding this report, please contact the number below. For patients who have questions please contact the health health and social care teacher that requested your imaging first. : Limited echo performed by fellow recreational vehicle repairer to assess LV function. Left ventricle [...] ischemic cardiomyopathy with HFrEF (~30% EF), prior NH with stents, DM type 2, HTN, HLD, [...] -Lasix 40 mg IV given in the microbiology laboratory manager; assess diuretic response, consider re-dosing [...] care per Dain Colón MD (medical assistant ob gyn). Please refer to his note above for details. Very pleasant 69 year old male but he is obese, diabetic, and he is a SMOKER with known prior CAD and moderately reduced LVEF (30%). He has a pacer. History of surgical resection of melanoma on his head. The patient was transferred overnight to [facility] as a STEMI. He was treated initially with a lytic (TNK) and brought directly to the microbiology laboratory manager. The cath demonstrated 3VD with [...] - 06/13/2024 10:58 AM EST ICU Blue (#[id number]) H&P Patient info: Name: George Mehta : 1955 PCP: Mauro Berumen MD PCP phone number: [phone] Date of Admission: 06/02/2024 ( Hospital Day 11 days ) Attending:Haja Byrnes MD ID: George Mehta is a 69 y.o. male with a h/o DM type 2, HTN, HLD, current smoker (2-3 cigarettes/day), HFrEF with an ICD for low EF (~30%), and CAD with prior NH x3 with JENNA placed in [place], [facility], [facility], presented to [facility] with 1 hour of retrosternal CP (05/13) while watching TV, foundto have STEMI. HPI: Shahnaz Scanlon H&P 06/02 69 y.o. male with a h/o DM type 2, HTN, HLD, current smoker (2-3 cigarettes/day), HFrEF with an ICD for low EF (~30%), and CAD with prior NH x3 with JENNA placed in [place], [facility], PAD, presented to [facility] with 1 hour of retrosternal CP (05/13) while watching TV. CP was non-radiating, not asso ciated with diaphoresis, nausea, or SOB. Denies orthopnea, MARTÍNEZ, palpitations, or LE edema. ECG showed findings consistent with anterior STEMI. He received TNK and was transferred for PCI. Coronary angiography showed a small, non-dominant RCA with jcgj-th-sbrossjo disease and a dominant,heavily calcified left system with prior stents in the LAD and OM. The LM bifurcates into the LAD and LCX, both heavily calcified. The proximal LCX has a 75% calcified, aneurysmal lesion, and an 80% calcified lesion distally before a large OM2. OM1 is a BALLPOINT PENS ASSEMBLER with in-stent restenosis, filling retrograde via collaterals. [...] 40 mg Lasix was administered in the microbiology laboratory manager. Cardiac surgery was consulted and [...] Blood Gas) No results for input(s): PHART, UXO0XDQ, PO2ART, WIU3VKX, LACTATEVEN, EUS9NNY, PFRATIOART2 in the last 168 hours. VBG (Venous Blood Gas) Recent Labs 06/10/24 1742 PHVEN 7.34 PO2VEN 24 RWM8YXN 27.4 Mixed Venous Sat No results for input(s): W4LZKZ1 in the last 168 hours. Intake/Output Summary [...] in the last 7068 hours. Invalid input(s): KSWTPTNACXU5J Recent Labs 06/13/24 0741 06/13/24 0325 06/12/24 2353 06/12/24 1932 06/12/24 1541 06/12/24 1121 06/12/24 0800 06/12/24 0425 06/11/24 2356 06/11/24 2025 06/11/24 1624 06/11/24 1108 POCGLU 126 99 141 158 113 207* 169 132 135 210* 81 233* Heme No results for input(s): LDH, HAPTOGLOBIN, URICACID in the last 168 hours. ABG (Arterial Blood Gas) No results for input(s): PHART, QBS6CFG, PO2ART, KZI9NQW, LACTATEVEN, MUQ9ZBU, PFRATIOART2 in the last 168 hours. VBG (Venous Blood Gas) Recent Labs 06/10/24 1742 PHVEN 7.34 PO2VEN 24 KKN0KDD 27.4 Mixed Venous Sat No results for input(s): F7KXOH3 in the last 168 hours. Microbiology: Microbiology Results (Last 30 days) No results found for the last 720 hours. Assessment & Plan: George Mehta is a 69 y.o. male with CAD, ischemic cardiomyopathy with HFrEF (~30% EF), prior NH with stents, DM type 2, HTN, HLD, [...] (Give Meds) Daily Healthy Menu Choices/Cardiac diet ([facility]-Diet) DVT Prophylaxis: SCD [...] TUD (abstinent since admission), ASCVD with multipleprior NH and PCIs, ICM/HFrEF LVEF 30% (all [...] is in the chart Rebeca Prado MD Chair Inspector PGY6 [id number] * Shahnaz Scanlon MD - [...] low EF (~30%), and CAD with prior NH x3 with JENNA placed in [place], [facility], PAD, presented to [facility] with 1 hour of retrosternal CP (05/13) while watching TV. CP was non-radiating, not assoc iated with diaphoresis, nausea, or SOB. Denies orthopnea, MARTÍNEZ, palpitations, or LE edema. ECG showed findings consistent with anterior STEMI. He received TNK and was transferred for PCI. Coronary angiography showed a small, non-dominant RCA with ezgv-xx-wchtfsxg disease and a dominant,heavily calcified left system with prior stents in the LAD and OM. The LM bifurcates into the LAD and LCX, both heavily calcified. The proximal LCX has a 75% calcified, aneurysmal lesion, and an 80% calcified lesion distally before a large OM2. OM1 is a BALLPOINT PENS ASSEMBLER with in-stent restenosis, filling retrograde via collaterals. [...] 40 mg Lasix was administered in the microbiology laboratory manager. Past Medical History: As per [...] Affect: Mood normal. Behavior: Behavior normal. Diagnostics: [facility] 06/02/2024 Coronary angiography revealed small [...] ischemic cardiomyopathy with HFrEF (~30% EF), prior NH with stents, DM type 2, HTN, HLD, [...] -Lasix 40 mg IV given in the microbiology laboratory manager; assess diuretic response. -Continue carvedilol; [...] & Follow-up Care: Contact information for follow-up [facility] [address] [facility] [address] Cardiac Rehab, [address] [facility] [address] JAMIE GRAMAJO confirmed with [facility] that they [...] Roberts RN - 06/18/2024 10:50 AM EST [facility] CARDIAC REHABILITATION George Mehta was seen today regarding participation in the outpatient Phase 2 Cardiac Rehabilitation at [facility]. The patient agrees to a referral [...] Group Needs: Homecare agency Agency Choices: [facility] Home Health Services: Medication checks, Registered Nurse, Physical Therapy Agency Referrals: pending clinical course and PT/OT recs [facility] [address] [facility] [address] PHONE: [phone] FAX: [phone] Transportation: family or friend will provide Barriers [...] recs Patient is insured through: Primary Insurance: [facility] [employer] MEDICARE Payor: [facility] MANAGED MEDICARE / Plan: [facility] MANAGED MEDICARE COMPLETE / Product Type: *No Product type* / Secondary Insurance: N/A Plan for discharge is: Home w/ Services Outpatient Agency/Support Group Needs: Homecare agency Agency Choices: [facility]: Medication checks, Registered Nurse, Physical Therapy Agency Referrals: pending clinical course and PT/OT recs [facility] [address] [place] [address] PHONE: [phone] FAX: [phone] Transportation: family or friend will provide Barriers [...] Loja MD - 06/14/2024 8:48 AM EST [facility] Operative Note Patient Name: George Mehta : [id number] MR#: [id number] Case Date: 06/14/2024 Surgeon: Surgeons and Role: * Bobby Loja MD - Primary * Rashi Bass PA - Physician Wire Galvanizer Preoperative diagnosis: CAD, MARIALUISA flickering mass on [...] without the involvement of a resident. Bobby Loaj MD 06/14/2024 * Plan of Care - [...] procedures today and tomorrow. Report called to [facility] - all belongings with patient. PLAN MOVING FORWARD: research lab assistant and transfer to [facility]. INDIVIDUALIZED FALL PREVENTION [...] No Patient is insured through: Primary Insurance: [facility] MANAGED MEDICARE Payor: [facility] MANAGED MEDICARE / Plan: [facility] MANAGED MEDICARE COMPLETE / Product Type: *No Product type* / Secondary Insurance: N/A Plan for discharge is: Home w/ Services Outpatient Agency/Support Group Needs: Homecare agency, Agency Choices: [facility] Home Health Services: Medication checks, Registered Nurse, Physical Therapy Agency Referrals: [facility] [address] [place] [address] RN / PT Routed 06/10 Transportation: family [...] with home health services when medically ready. district resource officer/Senior Java Ui Developer will continue to follow patient???s progress and remain available if situation changes for coordination of care, psychosocial support and/or discharge planning. Anticipated Date of Discharge: 06/18/2024 Mariia Montero RN Extension [phone] * Plan of Care - Migel Javier [...] No Patient is insured through: Primary Insurance: [employer] MANAGED MEDICARE Payor: [employer] MANAGED MEDICARE / Plan: [facility] [employer] MEDICARE COMPLETE / Product Type: *No Product [...] consult for high risk PCI vs CABG district resource officer/Senior Java Ui Developer will continue to follow patient???s progress and remain available if situation changes for coordination of care, psychosocial support and/or discharge planning. Anticipated Date of Discharge: 06/11/2024 Mariia Montero RN Extension [phone] * Plan of Care - Becca Hope [...] ischemic cardiomyopathy with HFrEF (~30% EF), prior NH with stents, DM type 2, HTN, HLD, [...] Breakfast- varies - eggs with khoury or setswana muffin Lunch- turkey sandwich Supper- meat and [...] Infusions: heparin (porcine) infusion 1,400 Units/hr (06/06/24 6541) PRN: insulin lispro, potassium chloride ER OR [...] ischemic cardiomyopathy with HFrEF (~30% EF), prior NH with stents, DM type 2, HTN, HLD, [...] Baumann APRN Endocrinology Diabetes Management Service Pager: [phone] Weekends please page [phone] 80 minute visit was spent in counseling [...] y.o. male with a PMHx of previous NH s/p PCI x3, ICM/HFrEF (LVEF 30%) s/p ICD, DMII, HTN, HLD, remote melanoma, and smoker who presented to [facility] last night via EMS after developing acute, severe chest pain while watching TV. Patient was ruled in for STEMI, given TNK, ASA, plavix, heparin gtt, and sent to [facility] for coronary angiography. LHC demonstrated severely calcified left coronary system with notable LCx 75/80% lesions and BALLPOINT PENS ASSEMBLER OM1 with ISR with collateral retrograde filling, [...] elevation myocardial infarction) Past Medical History: previous NH s/p PCI x3 ICM/HFrEF (LVEF 30%) s/p [...] is large. OM1 appears to be a BALLPOINT PENS ASSEMBLER, with in stentrestenosis and fills retrograde via [...] y.o. male admitted with STEMI s/p TNK, [facility] showing multivessel CAD including ISR, [...] service. Signed: Paula Treviño PA-C [facility] Section of Cardiac Surgery Date: 06/03/2024 * Initial Assessments - Catina Estrada MSW - 06/03/2024 10:32 AM EDT Office of Care Management Initial Assessment CHINA Humphrey reviewed record and discussed patient with Care Team. Source of Information: Team, bedside nurse, medical record, and Patient COLOR LABORATORY TECHNICIAN Introduced self/reviewed role; services accepted. Admitted From: [...] 180 days) Any patient receiving care in [place] must abide by [place] law. The hierarchy [...] (i) The agent with financial power of trust and estates attorney or a conservator appointed in accordance [...] has the electric, gas, oil, or water [employer] threatened to shut off services in your [...] in the bathroom) Home Address confirmed as: [address] [place] [address] [address] [facility] [address] Social & Family Supports: All names listed [...] Pertinent/Service Specific Information: Health/Prescription Coverage: Primary Insurance: [facility] MEDIC[facility] Payor: [facility] MEDICARE / Plan: AARP RPPO MANAGED MEDICARE COMPLETE / Product Type: *No Product type* / Secondary Insurance: N/A ; Prescription Coverage: Yes Preferred Pharmacy: [id number] - [facility], [place] - [address] [facility] [address] [place] [id number] Status: Patient is a : No Primary Care Provider confirmed: Mauro Berumen MD [phone] Patient/Caregiver Goals of Treatment: Potential Needs for [...] care as indicated. [facility] Cardiology, [phone]. [phone] * Brief Op Note - Angeles Gaxiola PA - 06/03/2024 12:23 AM EDT Preliminary Cardiac Catheterization Procedure Note: Patient Name: George Mehta : [id number] MR#: [id number] Case Date: 06/02/2024 - 06/03/2024 Welding Inspector: Surgeons and Role: * Nuha Shen MD - Primary * Angeles Gaxiola PA - Physician Wire Galvanizer Preoperative diagnosis: STEMI Postoperative diagnosis: * STEMI * Procedure(s) performed: RRA access [facility] Coronary angiogram IVUS LM/LAD/LCX Access: 6 Fr RRA A time-out was conducted prior to the start of the procedure to verify the correct patient and procedure, procedure location, and all relevant critical information. Preliminary findings: 69 year old current smoker (1-2 cigarette's per day), DM type 2, hypertension, dyslipidemia, ICD for HFrEF/low EF (~30%), CAD with prior [place] and 3 stents historically (in [place]) who presented to [facility] with 1 hour of rest chest [...] is large. 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 Blood CAPILLARY BLOOD / Unknown 06/21/2024 3:51 AM EST 06/21/2024 3:51 AM EST Bobby Loja MD POINT OF CARE TEST O NIKA [facility] [place] [address] * (ABNORMAL) Basic Metabolic Panel (06/21/2024 2:09 AM EST) Glucose 169 65 - 199 mg/dL 06/21/2024 3:10 AM [facility] Comment:Glucose Concentratio n >=200 mg/dL plus symptoms is consistent with Diabetes Mellitus. Blood Urea Nitrogen 27(H) 10 - 20 mg/dL 06/21/2024 3:10 AM [facility] Creatinine 1.24 0.80 - [...] APRN CHEMISTRY ORDERABL ES Performing Organization Address City/[facility]/ZIP Co de Phone Number [facility] [place] [place] [address] * POC, GLUCOSE (06/21/2024 12:04 AM EST) Glucometer, POC 157 65 - 199 mg/dL 06/21/2024 12:04 AM EST [facility] Comment:Supplemental ranges: <140 mg/dL before meals <180 mg/dL all other times of the day. Blood CAPILLARY BLOOD / Unknown 06/21/2024 12:04 AM EST 06/21/2024 12:04 AM EST Bobby Loja MD POINT OF CARE TEST O NIKA Performing Organization Address [facility] Co de Phone Number [facility] [place] [place] [address] * POC, GLUCOSE (06/20/2024 11:14 PM EST) Glucometer, POC 67 65 - 199 mg/dL 06/20/2024 11:14 PM EST [facility] Comment:Supplemental ranges: <140 mg/dL before meals <180 mg/dL all other times of the day. Blood CAPILLARY BLOOD / Unknown 06/20/2024 11:14 PM EST 06/20/2024 11:14 PM EST Bobby Loja MD POINT OF CARE TEST O NIKA Performing Organization Address City/[facility]/ZIP Co de Phone Number [facility] [place] [address] * POC, GLUCOSE (06/20/2024 7:16 PM EST) Glucometer, POC 132 65 - 199 mg/dL 06/20/2024 7:16 PM EST [facility] Comment:Supplemental ranges: <140 mg/dL before meals <180 mg/dL all other times of the day. Blood CAPILLARY BLOOD / Unknown 06/20/2024 7:16 PM EST 06/20/2024 7:16 PM EST Bobby Loja MD POINT OF CARE TEST O NIKA [facility] [place] [address] * POC, GLUCOSE (06/20/2024 3:39 PM EST) Glucometer, POC 124 65 - 199 mg/dL 06/20/2024 3:40 PM EST [facility] Comment:Supplemental ranges: <140 mg/dL before meals <180 mg/dL all other times of the day. Blood CAPILLARY BLOOD / Unknown 06/20/2024 3:39 PM EST 06/20/2024 3:40 PM EST Bobby Loja MD POINT OF CARE TEST O NIKA Performing Organization Address City/[facility]/ZIP Co de Phone Number [facility] [place] [address] * POC, GLUCOSE (06/20/2024 12:02 PM EST) Glucometer, POC 173 65 - 199 mg/dL 06/20/2024 12:03 PM EST [facility] Comment:Supplemental ranges: <140 mg/dL before meals <180 mg/dL all other times of the day. Blood CAPILLARY BLOOD / Unknown 06/20/2024 12:02 PM EST 06/20/2024 12:03 PM EST Bobby Loja MD POINT OF CARE TEST O NIKA [facility] [place] [place] [address] * POC, GLUCOSE (06/20/2024 7:10 AM EST) Glucometer, POC 130 65 - 199 mg/dL 06/20/2024 7:11 AM EST [facility] Comment:Supplemental ranges: <140 mg/dL before meals <180 mg/dL all other times of the day. Blood CAPILLARY BLOOD / Unknown 06/20/2024 7:10 AM EST 06/20/2024 7:11 AM EST Bobby Loja MD POINT OF CARE TEST O RDERABLES [facility] [place] [place] [address] * (ABNORMAL) Basic Metabolic Panel (06/20/2024 2:28 [...] mL/min/1. 73 m?? 06/20/2024 3:06 AM EST [facility] Comment: This patient's estimated [...] APRN CHEMISTRY ORDERABL ES Performing Organization Address City/[facility]/ZIP Co de Phone Number [facility] [place] [address] * POC, GLUCOSE (06/20/2024 12:32 AM EST) Glucometer, POC 86 65 - 199 mg/dL 06/20/2024 12:32 AM EST [facility] Comment:Supplemental ranges: <140 mg/dL before meals <180 mg/dL all other times of the day. Blood CAPILLARY BLOOD / Unknown 06/20/2024 12:32 AM EST 06/20/2024 12:32 AM EST Bobby Loja MD POINT OF CARE TEST O RDERABLES [facility] [place] [place] [address] * (ABNORMAL) POC, GLUCOSE (06/20/2024 12:02 AM EST) Glucometer, POC 59(L) 65 - 199 mg/dL 06/20/2024 12:02 AM EST [facility] Comment:Supplemental ranges: <140 mg/dL before meals <180 mg/dL all other times of the day. Blood CAPILLARY BLOOD / Unknown 06/20/2024 12:02 AM EST 06/20/2024 12:03 AM EST Narrative Authorizing Provider Result Saranya Loja MD POINT OF CARE TEST O NIKA Performing Organization Address City/[facility] Co de Phone Number [facility] [place] [place] [address] * POC, GLUCOSE (06/19/2024 8:15 PM EST) Glucometer, POC 131 65 - 199 mg/dL 06/19/2024 8:15 PM EST [facility] Comment:Supplemental ranges: <140 mg/dL before meals <180 mg/dL all other times of the day. Blood CAPILLARY BLOOD / Unknown 06/19/2024 8:15 PM EST 06/19/2024 8:15 PM EST Bobby Loja MD POINT OF CARE TEST Abimael MAHER Performing Organization Address [facility] Co de Phone Number [facility] [place] [place] [address] * POC, GLUCOSE (06/19/2024 6:01 PM EST) Glucometer, POC 129 65 - 199 mg/dL 06/19/2024 6:01 PM EST [facility] Comment:Supplemental ranges: <140 mg/dL before meals <180 mg/dL all other times of the day. Blood CAPILLARY BLOOD / Unknown 06/19/2024 6:01 PM EST 06/19/2024 6:02 PM EST Narrative Authorizing Provider Result Saranya Loja MD POINT OF CARE TEST O NIKA Performing Organization Address City/[facility] Co de Phone Number [facility] [place] [place] [address] * POC, GLUCOSE (06/19/2024 4:51 PM EST) Glucometer, POC 155 65 - 199 mg/dL 06/19/2024 4:51 PM EST [facility] Comment:Supplemental ranges: <140 mg/dL before meals <180 mg/dL all other times of the day. Blood CAPILLARY BLOOD / Unknown 06/19/2024 4:51 PM EST 06/19/2024 4:51 PM EST Bobby Loja MD POINT OF CARE TEST O NIKA Performing Organization Address City/[facility]/ZIP Co de Phone Number [facility] [place] [address] * POC, GLUCOSE (06/19/2024 12:37 PM EST) Glucometer, POC 136 65 - 199 mg/dL 06/19/2024 12:37 PM EST [facility] Comment:Supplemental ranges: <140 mg/dL before meals <180 mg/dL all other times of the day. Blood CAPILLARY BLOOD / Unknown 06/19/2024 12:37 PM EST 06/19/2024 12:37 PM EST Bobby Loja MD POINT OF CARE TEST O NIKA Performing Organization Address City/[facility]/ZIP Co de Phone Number [facility] [place] [address] * POC, GLUCOSE (06/19/2024 11:20 AM EST) Glucometer, POC 185 65 - 199 mg/dL 06/19/2024 11:21 AM EST [facility] Comment:Supplemental ranges: <140 mg/dL before meals <180 mg/dL all other times of the day. Blood CAPILLARY BLOOD / Unknown 06/19/2024 11:20 AM EST 06/19/2024 11:21 AM EST Bobby Loja MD POINT OF CARE TEST O NIKA [facility] [place] [address] * POC, GLUCOSE (06/19/2024 7:21 AM EST) Glucometer, POC 125 65 - 199 mg/dL 06/19/2024 7:21 AM EST [facility] Comment:Supplemental ranges: <140 mg/dL before meals <180 mg/dL all other times of the day. Blood CAPILLARY BLOOD / Unknown 06/19/2024 7:21 AM EST 06/19/2024 7:22 AM EST Bobby Loja MD POINT OF CARE TEST O NIKA [facility] [place] [place] [address] * POC, GLUCOSE (06/19/2024 4:52 AM EST) Glucometer, POC 125 65 - 199 mg/dL 06/19/2024 4:52 AM EST [facility] Comment:Supplemental ranges: <140 mg/dL before meals <180 mg/dL all other times of the day. Blood CAPILLARY BLOOD / Unknown 06/19/2024 4:52 AM EST 06/19/2024 4:52 AM EST Bobby Loja MD POINT OF CARE TEST O NIKA Performing Organization Address [facility]/ZIP Co de Phone Number [facility] [place] [address] * POC, GLUCOSE (06/19/2024 4:13 AM EST) Glucometer, POC 67 65 - 199 mg/dL 06/19/2024 4:13 AM EST [facility] Comment:Supplemental ranges: <140 mg/dL before meals <180 mg/dL all other times of the day. Blood CAPILLARY BLOOD / Unknown 06/19/2024 4:13 AM EST 06/19/2024 4:13 AM EST Bobby Loja MD POINT OF CARE TEST O NIKA [facility] [place] [address] * (ABNORMAL) POC, GLUCOSE (06/19/2024 3:48 AM EST) Glucometer, POC 51(LLL) 65 - 199 mg/dL 06/19/2024 3:48 AM EST [facility] Comment:Supplemental ranges: <140 mg/dL before meals <180 mg/dL all other times of the day. Blood CAPILLARY BLOOD / Unknown 06/19/2024 3:48 AM EST 06/19/2024 3:48 AM EST Bobby Loja MD POINT OF CARE TEST O RDERABLES [facility] [place] [address] * (ABNORMAL) Basic Metabolic Panel (06/19/2024 3:44 AM EST) Glucose 53(LLL) 65 - 199 mg/dL 06/19/2024 4:48 AM EST [facility] Comment:Glucose Concentratio n >=200 [...] - 10.5 mg/dL 06/19/2024 4:48 AM EST [facility] Est Glomerular Filtration Rate - Male 61 mL/min/1. 73 m?? 06/19/2024 4:48 AM EST [facility] Comment: This patient's estimated [...] APRN CHEMISTRY ORDERABL ES Performing Organization Address City/[facility]/ZIP Co de Phone Number [facility] [place] [address] * POC, GLUCOSE (06/19/2024 12:23 AM EST) Glucometer, POC 82 65 - 199 mg/dL 06/19/2024 12:23 AM EST [facility] Comment:Supplemental ranges: <140 mg/dL before meals <180 mg/dL all other times of the day. Blood CAPILLARY BLOOD / Unknown 06/19/2024 12:23 AM EST 06/19/2024 12:23 AM EST Bobby Loja MD POINT OF CARE TEST O RDERABLES [facility] [place] [address] * POC, GLUCOSE (06/18/2024 11:08 PM EST) Glucometer, POC 73 65 - 199 mg/dL 06/18/2024 11:08 PM EST [facility] Comment:Supplemental ranges: <140 mg/dL before meals <180 mg/dL all other times of the day. Blood CAPILLARY BLOOD / Unknown 06/18/2024 11:08 PM EST 06/18/2024 11:08 PM EST Bobby Loja MD POINT OF CARE TEST O NIKA [facility] [place] [address] * POC, GLUCOSE (06/18/2024 7:32 PM EST) Glucometer, POC 167 65 - 199 mg/dL 06/18/2024 7:32 PM EST [facility] Comment:Supplemental ranges: <140 mg/dL before meals <180 mg/dL all other times of the day. Blood CAPILLARY BLOOD / Unknown 06/18/2024 7:32 PM EST 06/18/2024 7:32 PM EST Bobby Loja MD POINT OF CARE TEST O NIKA Performing Organization Address City/[facility]/ZIP Co de Phone Number [facility] [place] [address] * POC, GLUCOSE (06/18/2024 6:08 PM EST) Glucometer, POC 140 65 - 199 mg/dL 06/18/2024 6:09 PM EST [facility] Comment:Supplemental ranges: <140 mg/dL before meals <180 mg/dL all other times of the day. Blood CAPILLARY BLOOD / Unknown 06/18/2024 6:08 PM EST 06/18/2024 6:09 PM EST Bobby Loja MD POINT OF CARE TEST O NIKA [facility] [place] [place] [address] * POC, GLUCOSE (06/18/2024 4:17 PM EST) Glucometer, POC 144 65 - 199 mg/dL 06/18/2024 4:17 PM EST [facility] Comment:Supplemental ranges: <140 mg/dL before meals <180 mg/dL all other times of the day. Blood CAPILLARY BLOOD / Unknown 06/18/2024 4:17 PM EST 06/18/2024 4:17 PM EST Bobby Loja MD POINT OF CARE TEST O NIKA [facility] [place] [address] * POC, GLUCOSE (06/18/2024 12:09 PM EST) Glucometer, POC 180 65 - 199 mg/dL 06/18/2024 12:09 PM EST [facility] Comment:Supplemental ranges: <140 mg/dL before meals <180 mg/dL all other times of the day. Blood CAPILLARY BLOOD / Unknown 06/18/2024 12:09 PM EST 06/18/2024 12:09 PM EST Bobby Loja MD POINT OF CARE TEST O NIKA Performing Organization Address City/[facility]/ZIP Co de Phone Number [facility] [place] [address] * POC, GLUCOSE (06/18/2024 7:49 AM EST) Glucometer, POC 125 65 - 199 mg/dL 06/18/2024 7:50 AM EST [facility] Comment:Supplemental ranges: <140 mg/dL before meals <180 mg/dL all other times of the day. Blood CAPILLARY BLOOD / Unknown 06/18/2024 7:49 AM EST 06/18/2024 7:50 AM EST Bobby Loja MD POINT OF CARE TEST O NIKA [facility] [place] [address] * (ABNORMAL) Basic Metabolic Panel (06/18/2024 4:19 [...] APRN CHEMISTRY ORDERABL ES Performing Organization Address [facility]/ZIP Co de Phone Number [facility] [place] [address] * POC, GLUCOSE (06/18/2024 3:50 AM EST) Glucometer, POC 99 65 - 199 mg/dL 06/18/2024 3:51 AM EST [facility] Comment:Supplemental ranges: <140 mg/dL before meals <180 mg/dL all other times of the day. Blood CAPILLARY BLOOD / Unknown 06/18/2024 3:50 AM EST 06/18/2024 3:51 AM EST Bobby Loja MD POINT OF CARE TEST O NIKA Performing Organization Address [facility] Co de Phone Number [facility] [place] [address] * POC, GLUCOSE (06/17/2024 11:10 PM EST) Glucometer, POC 92 65 - 199 mg/dL 06/17/2024 11:10 PM EST [facility] Comment:Supplemental ranges: <140 mg/dL before meals <180 mg/dL all other times of the day. Blood CAPILLARY BLOOD / Unknown 06/17/2024 11:10 PM EST 06/17/2024 11:10 PM EST Bobby Loja MD POINT OF CARE TEST O NIKA Performing Organization Address City/[facility]/ZIP Co de Phone Number [facility] [place] [address] * POC, GLUCOSE (06/17/2024 7:54 PM EST) Glucometer, POC 126 65 - 199 mg/dL 06/17/2024 7:54 PM EST [facility] Comment:Supplemental ranges: <140 mg/dL before meals <180 mg/dL all other times of the day. Blood CAPILLARY BLOOD / Unknown 06/17/2024 7:54 PM EST 06/17/2024 7:54 PM EST Bobby Loja MD POINT OF CARE TEST O NIKA Performing Organization Address [facility] Co de Phone Number [facility] [place] [address] * POC, GLUCOSE (06/17/2024 4:07 PM EST) Glucometer, POC 141 65 - 199 mg/dL 06/17/2024 4:12 PM EST [facility] Comment:Supplemental ranges: <140 mg/dL before meals <180 mg/dL all other times of the day. Blood CAPILLARY BLOOD / Unknown 06/17/2024 4:07 PM EST 06/17/2024 4:12 PM EST Bobby Loja MD POINT OF CARE TEST O NIKA Performing Organization Address [facility] de Phone Number [facility] [place] [address] * XR Chest PA & Lateral (Generic) (06/17/2024 1:46 PM EST) WORKSTATION ID [id number] RAD Anatomical Region Laterality Modality Chest N/A [...] who have questions please contact the health health and social care teacher that requested your imaging first. ? Electronically signed by: Josselyn Spence MD, [facility] ([phone]), at 06/17/2024 4:49 PM Narrative 06/17/2024 4:49 [...] patients who have questions please contactthe health health and social care teacher that requested your imaging first. Electronically signed by: Josselyn Spence MD, [facility]([phone]), at 06/17/2024 4:49 PM Keila Hanley APRN IMG DX ORDERABLES * (ABNORMAL) POC, GLUCOSE (06/17/2024 11:04 AM EST) Glucometer, POC 245(H) 65 - 199 mg/dL 06/17/2024 11:04 AM EST [facility] Comment:Supplemental ranges: <140 mg/dL before meals <180 mg/dL all other times of the day. Blood CAPILLARY BLOOD / Unknown 06/17/2024 11:04 AM EST 06/17/2024 11:04 AM EST Bobby Loja MD POINT OF CARE TEST O RDERAPIETER Performing Organization Address [facility] Co de Phone Number [facility] [place] [address] * POC, GLUCOSE (06/17/2024 7:49 AM EST) Glucometer, POC 141 65 - 199 mg/dL 06/17/2024 7:55 AM EST [facility] Comment:Supplemental ranges: <140 mg/dL before meals <180 mg/dL all other times of the day. Blood CAPILLARY BLOOD / Unknown 06/17/2024 7:49 AM EST 06/17/2024 7:55 AM EST Bobby Loja MD POINT OF CARE TEST O NIKA Performing Organization Address [facility] Co de Phone Number [facility] [place] [address] * POC, GLUCOSE (06/17/2024 4:16 AM EST) Glucometer, POC 139 65 - 199 mg/dL 06/17/2024 4:16 AM EST [facility] Comment:Supplemental ranges: <140 mg/dL before meals <180 mg/dL all other times of the day. Blood CAPILLARY BLOOD / Unknown 06/17/2024 4:16 AM EST 06/17/2024 4:17 AM EST Bobby Loja MD POINT OF CARE TEST O NIKA [facility] [place] [place] [address] * Lactate, Whole Blood (06/17/2024 2:39 AM EST) [facility] Lactate, Whole Blood 1.3 0.5 - 2.2 mmol/L 06/17/2024 2:46 AM EST [facility] Blood VENOUS BLOOD SPECIMEN / Unknown Venipuncture / Unknown 06/17/2024 2:39 AM EST 06/17/2024 2:43 AM EST Bobby Loja MD CHEMISTRY ORDERABLES Performing Organization Address City/[facility]/ZIP Co de Phone Number [facility] [place] [address] * (ABNORMAL) Hemogram (06/17/2024 2:39 AM EST) [facility] White Blood Cell 13.53(H) 4.00 [...] EST Bobby Loja MD HEMATOLOGY ORDERABLE S [facility] [place] [address] * (ABNORMAL) Basic Metabolic Panel (06/17/2024 2:39 [...] - 107 mMol/L 06/17/2024 3:14 AM EST [facility] Carbon Dioxide 23 22 - 31 mMol/L 06/17/2024 3:14 AM EST [facility] Anion Gap 9 5 - 15 mMol/L 06/17/2024 3:14 AM [facility] Calcium 8.8 8.5 - 10.5 mg/dL 06/17/2024 3:14 AM EST [facility] Est Glomerular Filtration Rate - Male 50 mL/min/1. 73 m?? 06/17/2024 3:14 AM EST [facility] Comment: This patient's estimated [...] AM EST Bobby Loja MD CHEMISTRY ORDERABLES [facility] [place] [address] * (ABNORMAL) POC, GLUCOSE (06/17/2024 12:13 AM EST) [facility] Signature Glucometer, POC 211(H) 65 - 199 mg/dL 06/17/2024 12:13 AM EST [facility] Comment:Supplemental ranges: <140 mg/dL before meals <180 mg/dL all other times of the day. Blood CAPILLARY BLOOD / Unknown 06/17/2024 12:13 AM EST 06/17/2024 12:14 AM EST Bobby Loja MD POINT OF CARE TEST O NIKA Performing Organization Address [facility] Co de Phone Number [facility] [place] [address] * (ABNORMAL) POC, GLUCOSE (06/16/2024 7:22 PM EST) Glucometer, POC 229(H) 65 - 199 mg/dL 06/16/2024 7:22 PM EST [facility] Comment:Supplemental ranges: <140 mg/dL before meals <180 mg/dL all other times of the day. Blood CAPILLARY BLOOD / Unknown 06/16/2024 7:22 PM EST 06/16/2024 7:22 PM EST Bobby Loja MD POINT OF CARE TEST O NIKA Performing Organization Address [facility] de Phone Number [facility] [place] [address] * (ABNORMAL) POC, GLUCOSE (06/16/2024 6:14 PM EST) Glucometer, POC 220(H) 65 - 199 mg/dL 06/16/2024 6:14 PM EST [facility] Comment:Supplemental ranges: <140 mg/dL before meals <180 mg/dL all other times of the day. Blood CAPILLARY BLOOD / Unknown 06/16/2024 6:14 PM EST 06/16/2024 6:14 PM EST Bobby Loja MD POINT OF CARE TEST O NIKA Performing Organization Address [facility] Co de Phone Number [facility] [place] [address] * Lactate, Whole Blood (06/16/2024 6:14 PM EST) Lactate, Whole Blood 1.8 0.5 - 2.2 mmol/L 06/16/2024 6:27 PM EST [facility] Blood VENOUS BLOOD SPECIMEN / Unknown Venipuncture / Unknown 06/16/2024 6:14 PM EST 06/16/2024 6:25 PM EST Bobby Loja MD CHEMISTRY ORDERABLES Performing Organization Address [facility] Co de Phone Number [facility] [place] [address] * (ABNORMAL) POC, GLUCOSE (06/16/2024 4:14 PM EST) Glucometer, POC 240(H) 65 - 199 mg/dL 06/16/2024 4:14 PM EST [facility] Comment:Supplemental ranges: <140 mg/dL before meals <180 mg/dL all other times of the day. Blood CAPILLARY BLOOD / Unknown 06/16/2024 4:14 PM EST 06/16/2024 4:14 PM EST Bobby Loja MD POINT OF CARE TEST O RDERABLES Performing Organization Address [facility] Co de Phone Number [facility] [place] [address] * POC, GLUCOSE (06/16/2024 11:49 AM EST) Glucometer, POC 199 65 - 199 mg/dL 06/16/2024 11:49 AM EST [facility] Comment:Supplemental ranges: <140 mg/dL before meals <180 mg/dL all other times of the day. Blood CAPILLARY BLOOD / Unknown 06/16/2024 11:49 AM EST 06/16/2024 11:49 AM EST Bobby Loja MD POINT OF CARE TEST O NIKA Performing Organization Address [facility] Co de Phone Number [facility] [place] [place] [address] * (ABNORMAL) Hemogram (06/16/2024 11:44 AM EST) White Blood Cell 17.91(H) 4.00 - 9.50 x10(3)/mc L 06/16/2024 12:25 PM EST [facility] Red Blood Cell 3.47(L) [...] EST Bobby Loja MD HEMATOLOGY ORDERABLE S [facility] [place] [address] * Lactate, Whole Blood (06/16/2024 9:02 AM EST) Lactate, Whole Blood 1.8 0.5 - 2.2 mmol/L 06/16/2024 9:19 AM EST [facility] Blood VENOUS BLOOD SPECIMEN / Unknown Venipuncture / Unknown 06/16/2024 9:02 AM EST 06/16/2024 9:17 AM EST Narrative Authorizing Provider Result Saranya Loja MD CHEMISTRY ORDERABLES Performing Organization Address [facility] Co de Phone Number [facility] [place] [address] * POC, GLUCOSE (06/16/2024 7:44 AM EST) Glucometer, POC 129 65 - 199 mg/dL 06/16/2024 7:44 AM EST [facility] Comment:Supplemental ranges: <140 mg/dL before meals <180 mg/dL all other times of the day. Blood CAPILLARY BLOOD / Unknown 06/16/2024 7:44 AM EST 06/16/2024 7:44 AM EST Narrative Authorizing Provider Result Saranya Loja MD POINT OF CARE TEST O RDERABLES Performing Organization Address [facility] Co de Phone Number [facility] [place] [address] * POC, GLUCOSE (06/16/2024 4:01 AM EST) Glucometer, POC 158 65 - 199 mg/dL 06/16/2024 4:01 AM EST [facility] Comment:Supplemental ranges: <140 mg/dL before meals <180 mg/dL all other times of the day. Blood CAPILLARY BLOOD / Unknown 06/16/2024 4:01 AM EST 06/16/2024 4:01 AM EST Narrative Authorizing Provider Result Saranya Loja MD POINT OF CARE TEST O RDERABLES [facility] [place] [address] * (ABNORMAL) Basic Metabolic Panel (06/16/2024 2:23 [...] Loja MD CHEMISTRY ORDERABLES Performing Organization Address City/[facility]/ZIP Co de Phone Number [facility] [place] [address] * POC, GLUCOSE (06/16/2024 2:21 AM EST) Glucometer, POC 176 65 - 199 mg/dL 06/16/2024 2:31 AM EST [facility] Comment:Supplemental ranges: <140 mg/dL before meals <180 mg/dL all other times of the day. Blood CAPILLARY BLOOD / Unknown 06/16/2024 2:21 AM EST 06/16/2024 2:31 AM EST Narrative Authorizing Provider Result Saranya Loja MD POINT OF CARE TEST O RDERABLES Performing Organization Address [facility] Co de Phone Number [facility] [place] [address] * (ABNORMAL) POC, GLUCOSE (06/16/2024 12:09 AM EST) Glucometer, POC 222(H) 65 - 199 mg/dL 06/16/2024 12:09 AM EST [facility] Comment:Supplemental ranges: <140 mg/dL before meals <180 mg/dL all other times of the day. Blood CAPILLARY BLOOD / Unknown 06/16/2024 12:09 AM EST 06/16/2024 12:09 AM EST Narrative Authorizing Provider Result Saranya Loja MD POINT OF CARE TEST O RDERABLES Performing Organization Address City/[facility]/ZIP Co de Phone Number [facility] [place] [address] * (ABNORMAL) POC, GLUCOSE (06/15/2024 10:07 PM EST) Glucometer, POC 320(H) 65 - 199 mg/dL 06/15/2024 10:07 PM EST [facility] Comment:Supplemental ranges: <140 mg/dL before meals <180 mg/dL all other times of the day. Blood CAPILLARY BLOOD / Unknown 06/15/2024 10:07 PM EST 06/15/2024 10:07 PM EST Bobby Loja MD POINT OF CARE TEST O NIKA Performing Organization Address [facility] de Phone Number [facility] [place] [address] * (ABNORMAL) POC, GLUCOSE (06/15/2024 7:56 PM EST) Glucometer, POC 304(H) 65 - 199 mg/dL 06/15/2024 7:56 PM EST [facility] Comment:Supplemental ranges: <140 mg/dL before meals <180 mg/dL all other times of the day. Blood CAPILLARY BLOOD / Unknown 06/15/2024 7:56 PM EST 06/15/2024 7:56 PM EST Bobby Loja MD POINT OF CARE TEST Abimael MAHER Performing Organization Address [facility] de Phone Number [facility] [place] [address] * (ABNORMAL) POC, GLUCOSE (06/15/2024 7:52 PM EST) Glucometer, POC 288(H) 65 - 199 mg/dL 06/15/2024 7:52 PM EST [facility] Comment:Supplemental ranges: <140 mg/dL before meals <180 mg/dL all other times of the day. Blood CAPILLARY BLOOD / Unknown 06/15/2024 7:52 PM EST 06/15/2024 7:52 PM EST Narrative Authorizing Provider Result Saranya Loja MD POINT OF CARE TEST O NIKA Performing Organization Address City/[facility] Co de Phone Number [facility] [place] [address] * POC, GLUCOSE (06/15/2024 4:21 PM EST) Glucometer, POC 192 65 - 199 mg/dL 06/15/2024 4:21 PM EST [facility] Comment:Supplemental ranges: <140 mg/dL before meals <180 mg/dL all other times of the day. Blood CAPILLARY BLOOD / Unknown 06/15/2024 4:21 PM EST 06/15/2024 4:21 PM EST Bobby Loja MD POINT OF CARE TEST O NIKA Performing Organization Address [facility] de Phone Number [facility] [place] [address] * POC, GLUCOSE (06/15/2024 3:27 PM EST) Glucometer, POC 155 65 - 199 mg/dL 06/15/2024 3:27 PM EST [facility] Comment:Supplemental ranges: <140 mg/dL before meals <180 mg/dL all other times of the day. Blood CAPILLARY BLOOD / Unknown 06/15/2024 3:27 PM EST 06/15/2024 3:27 PM EST Bobby Loja MD POINT OF CARE TEST O NIKA Performing Organization Address [facility] Co de Phone Number [facility] [place] [address] * POC, GLUCOSE (06/15/2024 2:23 PM EST) Glucometer, POC 160 65 - 199 mg/dL 06/15/2024 2:23 PM EST [facility] Comment:Supplemental ranges: <140 mg/dL before meals <180 mg/dL all other times of the day. Blood CAPILLARY BLOOD / Unknown 06/15/2024 2:23 PM EST 06/15/2024 2:23 PM EST Bobby Loja MD POINT OF CARE TEST O RDERABLES Performing Organization Address [facility] Co de Phone Number [facility] [place] [address] * POC, GLUCOSE (06/15/2024 1:26 PM EST) Glucometer, POC 167 65 - 199 mg/dL 06/15/2024 1:26 PM EST [facility] Comment:Supplemental ranges: <140 mg/dL before meals <180 mg/dL all other times of the day. Blood CAPILLARY BLOOD / Unknown 06/15/2024 1:26 PM EST 06/15/2024 1:26 PM EST Bobby Loja MD POINT OF CARE TEST O NIKA Performing Organization Address [facility] Co de Phone Number [facility] [place] [address] * (ABNORMAL) POC, GLUCOSE (06/15/2024 12:55 PM EST) Glucometer, POC 210(H) 65 - 199 mg/dL 06/15/2024 12:55 PM EST [facility] Comment:Supplemental ranges: <140 mg/dL before meals <180 mg/dL all other times of the day. Blood CAPILLARY BLOOD / Unknown 06/15/2024 12:55 PM EST 06/15/2024 12:55 PM EST Bobby Loja MD POINT OF CARE TEST O NIKA Performing Organization Address [facility] Co de Phone Number [facility] [place] [address] * (ABNORMAL) POC, GLUCOSE (06/15/2024 11:29 AM EST) Glucometer, POC 220(H) 65 - 199 mg/dL 06/15/2024 11:29 AM EST [facility] Comment:Supplemental ranges: <140 mg/dL before meals <180 mg/dL all other times of the day. Blood CAPILLARY BLOOD / Unknown 06/15/2024 11:29 AM EST 06/15/2024 11:29 AM EST Bobby Loja MD POINT OF CARE TEST O RDERABLES [facility] [place] [address] * (ABNORMAL) Basic Metabolic Panel (06/15/2024 11:23 [...] Loja MD CHEMISTRY ORDERABLES Performing Organization Address [facility] Co de Phone Number [facility] [place] [address] * POC, GLUCOSE (06/15/2024 10:29 AM EST) Glucometer, POC 189 65 - 199 mg/dL 06/15/2024 10:29 AM EST [facility] Comment:Supplemental ranges: <140 mg/dL before meals <180 mg/dL all other times of the day. Blood CAPILLARY BLOOD / Unknown 06/15/2024 10:29 AM EST 06/15/2024 10:29 AM EST Narrative Authorizing Provider Result Saranya Loja MD POINT OF CARE TEST O RDERABLES Performing Organization Address City/[facility] Co de Phone Number [facility] [place] [address] * POC, GLUCOSE (06/15/2024 9:45 AM EST) Glucometer, POC 178 65 - 199 mg/dL 06/15/2024 9:45 AM EST [facility] Comment:Supplemental ranges: <140 mg/dL before meals <180 mg/dL all other times of the day. Blood CAPILLARY BLOOD / Unknown 06/15/2024 9:45 AM EST 06/15/2024 9:45 AM EST Narrative Authorizing Provider Result Saranya Loja MD POINT OF CARE TEST O RDERABLES Performing Organization Address City/[facility]/ZIP Co de Phone Number [facility] [place] [address] * (ABNORMAL) Cooximetry, POC (06/15/2024 9:31 AM [...] CARE TEST O RDERAPIETER Performing Organization Address [facility]/ZIP Co de Phone Number [facility] [place] [address] * Cooximetry, POC (06/15/2024 9:22 AM EST) pO2, Coox 30 mmHg 06/15/2024 9:25 AM EST [facility] Hemoglobin, Coox 06/15/2024 9:25 AM EST [facility] Comment:QUES Oxyhemoglobin, Coox 06/15/2024 [...] MD POINT OF CARE TEST O NIKA [facility] [place] [place] [address] * (ABNORMAL) Blood Gas, Arterial POC (06/15/2024 [...] MD POINT OF CARE TEST O NIKA [facility] [place] [address] * (ABNORMAL) POC, GLUCOSE (06/15/2024 8:37 AM EST) [facility] Signature Glucometer, POC 204(H) 65 - 199 mg/dL 06/15/2024 8:37 AM [facility] Comment:Supplemental ranges: <140 mg/dL before meals <180 mg/dL all other times of the day. Blood CAPILLARY BLOOD / Unknown 06/15/2024 8:37 AM EST 06/15/2024 8:37 AM EST Narrative Authorizing Provider Result Saranya Loja MD POINT OF CARE TEST O RDBECKIE Performing Organization Address [facility] de Phone Number [facility] [place] [address] * POC, GLUCOSE (06/15/2024 7:37 AM EST) Glucometer, POC 199 65 - 199 mg/dL 06/15/2024 7:37 AM EST [facility] Comment:Supplemental ranges: <140 mg/dL before meals <180 mg/dL all other times of the day. Blood CAPILLARY BLOOD / Unknown 06/15/2024 7:37 AM EST 06/15/2024 7:38 AM EST Bobby Loja MD POINT OF CARE TEST O NIKA Performing Organization Address [facility] de Phone Number [facility] [place] [address] * (ABNORMAL) POC, GLUCOSE (06/15/2024 7:01 AM EST) Glucometer, POC 203(H) 65 - 199 mg/dL 06/15/2024 7:01 AM EST [facility] Comment:Supplemental ranges: <140 mg/dL before meals <180 mg/dL all other times of the day. Blood CAPILLARY BLOOD / Unknown 06/15/2024 7:01 AM EST 06/15/2024 7:01 AM EST Bobby Loja MD POINT OF CARE TEST O NIKA Performing Organization Address [facility] Co de Phone Number [facility] [place] [place] [address] * XR Chest One View (06/15/2024 6:31 AM EST) WORKSTATION ID [id number] RAD Anatomical Region Laterality Modality Chest N/A [...] who have questions please contact the health health and social care teacher that requested your imaging first. ? Electronically signed by: Stuart Aponte MD, [facility] ??([phone]), at 06/15/2024 10:38 AM Narrative 06/15/2024 10:38 [...] patients who have questions please contactthe health health and social care teacher that requested your imaging first. Electronically signed by: Stuart Aponte MD, [facility]([phone]), at 06/15/2024 10:38 AM Authorizing Provider Result Saranya Loja MD IMG DX ORDERABLES * POC, GLUCOSE (06/15/2024 6:02 AM EST) Glucometer, POC 179 65 - 199 mg/dL 06/15/2024 6:02 AM EST [facility] Comment:Supplemental ranges: <140 mg/dL before meals <180 mg/dL all other times of the day. Blood CAPILLARY BLOOD / Unknown 06/15/2024 6:02 AM EST 06/15/2024 6:02 AM EST Bobby Loja MD POINT OF CARE TEST O NIKA Performing Organization Address [facility]/ZIP Co de Phone Number [facility] [place] [address] * POC, GLUCOSE (06/15/2024 5:06 AM EST) Glucometer, POC 160 65 - 199 mg/dL 06/15/2024 5:06 AM EST [facility] Comment:Supplemental ranges: <140 mg/dL before meals <180 mg/dL all other times of the day. Blood CAPILLARY BLOOD / Unknown 06/15/2024 5:06 AM EST 06/15/2024 5:06 AM EST Narrative Authorizing Provider Result Saranya Loja MD POINT OF CARE TEST O NIKA [facility] [place] [address] * POC, GLUCOSE (06/15/2024 4:05 AM EST) Glucometer, POC 160 65 - 199 mg/dL 06/15/2024 4:06 AM EST [facility] Comment:Supplemental ranges: <140 mg/dL before meals <180 mg/dL all other times of the day. Blood CAPILLARY BLOOD / Unknown 06/15/2024 4:05 AM EST 06/15/2024 4:06 AM EST Bobby Loja MD POINT OF CARE TEST Abimael MAHER Performing Organization Address [facility] Co de Phone Number [facility] [place] [address] * POC, GLUCOSE (06/15/2024 3:07 AM EST) Glucometer, POC 151 65 - 199 mg/dL 06/15/2024 3:07 AM EST [facility] Comment:Supplemental ranges: <140 mg/dL before meals <180 mg/dL all other times of the day. Blood CAPILLARY BLOOD / Unknown 06/15/2024 3:07 AM EST 06/15/2024 3:07 AM EST Bobby Loja MD POINT OF CARE TEST Abimael MAHER Performing Organization Address [facility] Co de Phone Number [facility] [place] [address] * (ABNORMAL) Basic Metabolic Panel (06/15/2024 1:48 [...] - 31 mMol/L 06/15/2024 2:38 AM EST [facility] Anion Gap 9 5 - 15 mMol/L 06/15/2024 2:38 AM EST [facility] Calcium 8.3(L) 8.5 - 10.5 mg/dL 06/15/2024 2:38 AM EST [facility] Est Glomerular Filtration Rate - Male 62 mL/min/1. 73 m?? 06/15/2024 2:38 AM EST [facility] Comment: This patient's estimated [...] AM EST Bobby Loja MD CHEMISTRY ORDERABLES [facility] [place] [place] [address] * (ABNORMAL) CBC (with Diff) (06/15/2024 1:48 AM EST) White Blood Cell 11.71(H) 4.00 - 9.50 x10(3)/mc L 06/15/2024 2:13 AM EST [facility] Red Blood Cell 4.14(L) 4.58 - 5.54 x10(6)/mc L 06/15/2024 2:13 AM EST [facility] Hemoglobin 12.5(L) 13.7 - 16.5 g/dL 06/15/2024 2:13 AM EST [facility] Hematocrit 38.4(L) 40.5 - [...] 0.90 x10(3)/mc L 06/15/2024 2:13 AM EST [facility] Eos % 0.2 % 06/15/2024 2:13 AM [facility] Eos Absolute <0.04 0.00 - 0.40 x10(3)/mc L 06/15/2024 2:13 AM EST [facility] Basophil % 0.2 % 06/15/2024 2:13 AM EST [facility] Baso Absolute <0.04 0.00 - 0.10 x10(3)/mc L 06/15/2024 2:13 AM [facility] Immature Gran % 0.5 % 2:13 AM [facility] Immature Gran Absolute 0.06(H) 0.00 - 0.04 x10(3)/mc L 06/15/2024 2:13 AM [facility] Blood VENOUS BLOOD SPECIMEN / Unknown Venipuncture / Unknown 06/15/2024 1:48 AM EST 06/15/2024 1:52 AM EST Bobby Loja MD HEMATOLOGY ORDERABLE S [facility] [place] [address] * (ABNORMAL) Troponin - Single (06/15/2024 1:48 AM EST) Troponin-T, High Sensitivity 667(H) <=22 ng/L 06/15/2024 2:22 AM EST [facility] Comment: [...] troponin value can be found in the Replaced By [facility] Test Catalog Troponin - https://[email or web address].org/catalogs/565/[email or web address] Reference: Fourth [place] Definition of Myocardial Infarction. Journal of the [place] [employer] 2018;72:5054-9632 Blood VENOUS BLOOD SPECIMEN / Unknown Venipuncture / Unknown 06/15/2024 1:48 AM EST 06/15/2024 1:52 AM EST Bobby Loja MD CHEMISTRY ORDERABLES [facility] [place] [address] * (ABNORMAL) Blood Gas, Arterial POC (06/15/2024 1:46 AM EST) pH, Arterial 7.33(L) 7.35 - 7.45 06/15/2024 1:47 AM EST [facility] PCO2, Arterial 40 35 - 45 mmHg 06/15/2024 1:47 AM EST [facility] PO2, Arterial 131(H) 85 - 104 mmHg 06/15/2024 1:47 AM EST [facility] Bicarbonate, Arterial 20.7 20.0 - 26.0 mmol/L 06/15/2024 1:47 AM EST [facility] Base Excess, Arterial -5.2(L) -3.0 - 3.0 mmol/L 06/15/2024 1:47 AM EST [facility] Hemoglobin, Arterial 13.4(L) 13.7 - 16.5 g/dL 06/15/2024 1:47 AM EST [facility] Oxyhemoglobin, Arterial 97.9(H) 94.0 [...] MD POINT OF CARE TEST O NIKA [facility] [place] [address] * POC, GLUCOSE (06/15/2024 1:05 AM EST) Glucometer, POC 116 65 - 199 mg/dL 06/15/2024 1:05 AM EST [facility] Comment:Supplemental ranges: <140 mg/dL before meals <180 mg/dL all other times of the day. Blood CAPILLARY BLOOD / Unknown 06/15/2024 1:05 AM EST 06/15/2024 1:05 AM EST Bobby Loja MD POINT OF CARE TEST O RDERABLES Performing Organization Address [facility] Co de Phone Number [facility] [place] [address] * POC, GLUCOSE (06/15/2024 12:16 AM EST) Glucometer, POC 135 65 - 199 mg/dL 06/15/2024 12:16 AM EST [facility] Comment:Supplemental ranges: <140 mg/dL before meals <180 mg/dL all other times of the day. Blood CAPILLARY BLOOD / Unknown 06/15/2024 12:16 AM EST 06/15/2024 12:16 AM EST Bobby Loja MD POINT OF CARE TEST O RDERABLES Performing Organization Address [facility] Co de Phone Number [facility] [place] [address] * Potassium (06/14/2024 11:28 PM EST) Potassium 4.1 3.5 - 5.0 mMol/L 06/14/2024 11:54 PM EST [facility] Blood VENOUS BLOOD SPECIMEN / Unknown Venipuncture / Unknown 06/14/2024 11:28 PM EST 06/14/2024 11:34 PM EST Bobby Loja MD CHEMISTRY ORDERABLES Performing Organization Address City/[facility]/ZIP Co de Phone Number [facility] [place] [address] * POC, GLUCOSE (06/14/2024 10:58 PM EST) Glucometer, POC 126 65 - 199 mg/dL 06/14/2024 10:59 PM EST [facility] Comment:Supplemental ranges: <140 mg/dL before meals <180 mg/dL all other times of the day. Blood CAPILLARY BLOOD / Unknown 06/14/2024 10:58 PM EST 06/14/2024 10:59 PM EST Bobby Loja MD POINT OF CARE TEST O NIKA Performing Organization Address City/[facility]/ZIP Co de Phone Number [facility] [place] [address] * POC, GLUCOSE (06/14/2024 9:55 PM EST) Glucometer, POC 152 65 - 199 mg/dL 06/14/2024 9:56 PM EST [facility] Comment:Supplemental ranges: <140 mg/dL before meals <180 mg/dL all other times of the day. Blood CAPILLARY BLOOD / Unknown 06/14/2024 9:55 PM EST 06/14/2024 9:56 PM EST Bobby Loja MD POINT OF CARE TEST O NIKA Performing Organization Address City/[facility]/ZIP Co de Phone Number [facility] [place] [address] * POC, GLUCOSE (06/14/2024 8:54 PM EST) Glucometer, POC 151 65 - 199 mg/dL 06/14/2024 8:54 PM EST [facility] Comment:Supplemental ranges: <140 mg/dL before meals <180 mg/dL all other times of the day. Blood CAPILLARY BLOOD / Unknown 06/14/2024 8:54 PM EST 06/14/2024 8:54 PM EST Bobby Loja MD POINT OF CARE TEST O NIKA Performing Organization Address [facility] Co de Phone Number [facility] [place] [address] * POC, GLUCOSE (06/14/2024 7:51 PM EST) Glucometer, POC 169 65 - 199 mg/dL 06/14/2024 7:52 PM EST [facility] Comment:Supplemental ranges: <140 mg/dL before meals <180 mg/dL all other times of the day. Blood CAPILLARY BLOOD / Unknown 06/14/2024 7:51 PM EST 06/14/2024 7:52 PM EST Bobby Loja MD POINT OF CARE TEST Abimael MAHER Performing Organization Address [facility] Co de Phone Number [facility] [place] [address] * POC, GLUCOSE (06/14/2024 6:49 PM EST) Glucometer, POC 194 65 - 199 mg/dL 06/14/2024 6:50 PM EST [facility] Comment:Supplemental ranges: <140 mg/dL before meals <180 mg/dL all other times of the day. Blood CAPILLARY BLOOD / Unknown 06/14/2024 6:49 PM EST 06/14/2024 6:50 PM EST Bobby Loja MD POINT OF CARE TEST Abimael MAHER Performing Organization Address City/[facility] Co de Phone Number [facility] [place] [address] * (ABNORMAL) Hemoglobin (06/14/2024 6:19 PM EST) Hemoglobin 13.1(L) 13.7 - 16.5 g/dL 06/14/2024 7:08 PM EST [facility] Blood VENOUS BLOOD SPECIMEN / Unknown Venipuncture / Unknown 06/14/2024 6:19 PM EST 06/14/2024 6:28 PM EST Bobby Loja MD HEMATOLOGY ORDERABLE S Performing Organization Address [facility]/ZIP Co de Phone Number [facility] [place] [address] * Potassium (06/14/2024 6:19 PM EST) Potassium 3.9 3.5 - 5.0 mMol/L 06/14/2024 6:52 PM EST [facility] Blood VENOUS BLOOD SPECIMEN / Unknown Venipuncture / Unknown 06/14/2024 6:19 PM EST 06/14/2024 6:28 PM EST Bobby Loja MD CHEMISTRY ORDERABLES Performing Organization Address [facility] Co de Phone Number [facility] [place] [address] * (ABNORMAL) POC, GLUCOSE (06/14/2024 6:03 PM EST) [facility] Glucometer, POC 201(H) 65 - 199 mg/dL 06/14/2024 6:03 PM EST [facility] Comment:Supplemental ranges: <140 mg/dL before meals <180 mg/dL all other times of the day. Blood CAPILLARY BLOOD / Unknown 06/14/2024 6:03 PM EST 06/14/2024 6:03 PM EST Bobby Loja MD POINT OF CARE TEST O RDERABLES Performing Organization Address City/[facility]/ZIP Co de Phone Number [facility] [place] [address] * (ABNORMAL) Blood Gas, Arterial POC (06/14/2024 4:51 PM EST) pH, Arterial 7.32(L) 7.35 - 7.45 06/14/2024 4:52 PM EST [facility] PCO2, Arterial 46(H) 35 - 45 mmHg 06/14/2024 4:52 PM EST [facility] PO2, Arterial 85 85 [...] - 199 mg/dL 06/14/2024 4:52 PM EST [facility] Comment:Glucose Concentratio n >=200 mg/dL plus symptoms is consistent with Diabetes Mellitus. Blood ARTERIAL BLOOD / Unknown 06/14/2024 4:51 PM EST 06/14/2024 4:52 PM EST Bobby Ljoa MD POINT OF CARE TEST O NIKA Performing Organization Address [facility] Co de Phone Number [facility] [place] [address] * POC, GLUCOSE (06/14/2024 4:00 PM EST) Glucometer, POC 184 65 - 199 mg/dL 06/14/2024 4:01 PM EST [facility] Comment:Supplemental ranges: <140 mg/dL before meals <180 mg/dL all other times of the day. Blood CAPILLARY BLOOD / Unknown 06/14/2024 4:00 PM EST 06/14/2024 4:01 PM EST Bobby Loja MD POINT OF CARE TEST O NIKA Performing Organization Address [facility] de Phone Number [facility] [place] [address] * XR Chest One View (06/14/2024 3:05 PM EST) WORKSTATION ID [id number] RAD Anatomical Region Laterality Modality Chest N/A [...] who have questions please contact the health health and social care teacher that requested your imaging first. ? Electronically signed by: Stuart Aponte MD, [facility] ??([phone]), at 06/14/2024 4:07 PM Narrative 06/14/2024 4:07 [...] patients who have questions please contactthe health health and social care teacher that requested your imaging first. Electronically signed by: Stuart Aponte MD, [facility]([phone]), at 06/14/2024 4:07 PM Bobby Loja MD [...] 0.1 <=1.5 % 06/14/2024 2:53 PM EST [facility] Sodium, Arterial 138 135 - 145 mmol/L 06/14/2024 2:53 PM EST [facility] Potassium, Arterial 4.2 3.5 - 5.0 mmol/L 06/14/2024 2:53 PM EST [facility] Chloride, Arterial 106 98 [...] 2:52 PM EST 06/14/2024 2:53 PM EST Bboby Loja MD POINT OF CARE TEST O RDERABLES [facility] [place] [address] * EKG 12 Lead (06/14/2024 2:46 PM EST) Ventricular rate 80 BPM MUSE SYSTEM Atrial Rate 80 BPM MUSE SYSTEM P-R Interval 120 ms MUSE SYSTEM QRS Duration 108 ms MUSE SYSTEM Q-T Interval 454 ms MUSE SYSTEM QTC Calculated (Bezet) 523 ms MUSE SYSTEM Calculated P Lavelle 70 degrees MUSE SYSTEM Calculated R Lavelle 56 degrees MUSE SYSTEM Calculated T Lavelle 50 degrees MUSE SYSTEM INTERPRETATION AV dual-paced rhythm Abnormal ECG When compared with ECG of 03-JUN-2024 01:45, Vent. rate has increased BY ??17 BPM Confirmed by MD Marisol, Shaheen ([id number]) on 06/15/2024 1:57:23 PM MUSE SYSTEM 06/14/2024 2:46 PM EST 06/15/2024 1:57 PM EST Bobby Loja MD ECG ORDERABLES MUSE SYSTEM * Prepare RBC (06/14/2024 2:27 PM EST) Status Information Returned [facility] Product Identification RBC [facility] Unit Number [id number] [facility] Product Code [id number] [facility] Unit Blood Type [facility] Specimen Expiration Date [facility] Volulme 350 [facility] Issue Date / Time [facility] Status Information Returned [facility] Product Identification RBC [facility] Unit Number [id number] [facility] Product Code [id number] [facility] Unit Blood Type [facility] Specimen Expiration Date [facility] Volulme 350 [facility] Issue Date / Time [facility] Blood 06/14/2024 6:2 5 AM EST Haja Byrnes MD BLOOD BANK PRODUCT O RDERABLES [facility] [place] [address] * (ABNORMAL) Cooximetry, POC (06/14/2024 1:52 PM EST) pO2, Coox 58 mmHg 06/14/2024 1:55 PM EST [facility] Hemoglobin, Coox 12.6(L) 13.7 - 16.5 g/dL 06/14/2024 1:55 PM EST [facility] Oxyhemoglobin, Coox 85.5 % 06/14/2024 1:55 PM [facility] Carboxyhemoglo bin, Coox 0.3 % 06/14/2024 1:55 PM [facility] Comment: Nonsmokers: 0.5-1.5% COHB ?? Smokers: Variable ??but usually less than 10% ?? Toxic: 20-30% COHB ?? Lethal: Greater than 60% COHB Methemoglobin, Coox 0.6 <=1.5 % 06/14/2024 1:55 PM [facility] Blood (Mixed Venous) 06/14/2024 1:52 PM EST 06/14/2024 1:55 PM EST Haja Byrnes MD POINT OF CARE TEST O RDERABLES Performing Organization Address City/State/[facility] Co de Phone Number [facility] [place] [address] * (ABNORMAL) Blood Gas, Arterial POC (06/14/2024 [...] - 97.0 % 06/14/2024 12:48 PM EST [facility] Carboxyhemoglobin , Arterial 0.3 % 06/14/2024 12:48 PM [facility] Comment: Nonsmokers: 0.5-1.5% COHB ?? Smokers: Variable ??but usually less than 10% ?? Toxic: 20-30% COHB ?? Lethal: Greater than 60% COHB Methemoglobin, Arterial 0.5 <=1.5 % 06/14/2024 12:48 PM EST [facility] Sodium, Arterial 135 135 [...] MD POINT OF CARE TEST O RDERABLES [facility] [place] [address] * (ABNORMAL) Cooximetry, POC (06/14/2024 12:42 PM EST) pO2, Coox 71 mmHg 06/14/2024 12:45 PM EST [facility] Hemoglobin, Coox 11.6(L) 13.7 - 16.5 g/dL 06/14/2024 12:45 PM EST [facility] Oxyhemoglobin, Coox 91.5 % 06/14/2024 12:45 PM EST [facility] Carboxyhemoglo bin, Coox 0.3 % 06/14/2024 12:45 PM EST [facility] Comment: Nonsmokers: 0.5-1.5% COHB ?? Smokers: Variable ??but usually less than 10% ?? Toxic: 20-30% COHB ?? Lethal: Greater than 60% COHB Methemoglobin, Coox 0.4 <=1.5 % 06/14/2024 12:45 PM EST [facility] Blood (Mixed Venous) 06/14/2024 12:42 PM EST 06/14/2024 12:45 PM EST Haja Byrnes MD POINT OF CARE TEST O RDERABLES [facility] [place] [address] * (ABNORMAL) Platelet count (06/14/2024 12:30 PM EST) Platelet 73(L) 145 - 357 x10(3)/mcL 06/14/2024 12:54 PM EST [facility] Blood ARTERIAL BLOOD / Unknown 06/14/2024 12:30 PM EST Comment:Pre-op diagnosis: CAD Bobby Loja MD HEMATOLOGY ORDERABLE S [facility] [place] [address] * (ABNORMAL) Hemoglobin and Hematocrit, blood (06/14/2024 [...] MD HEMATOLOGY ORDERABLE S Performing Organization Address [facility] Co de Phone Number [facility] [place] [address] * APTT (06/14/2024 12:30 PM EST) Partial [...] MD HEMATOLOGY ORDERABLE S Performing Organization Address [facility] Co de Phone Number [facility] [place] [address] * (ABNORMAL) Prothrombin Time (06/14/2024 12:30 PM [...] MD HEMATOLOGY ORDERABLE S Performing Organization Address [facility] Co de Phone Number [facility] [place] [address] * Fibrinogen (06/14/2024 12:30 PM EST) Fibrinogen 211 200 - 393 mg/dL 06/14/2024 12:57 PM EST [facility] Comment: A fibrinogen level >100 mg/dL is adequate for hemostasis in most patients without underlying bleeding disorders. Blood ARTERIAL BLOOD / Unknown 06/14/2024 12:30 PM EST 06/14/2024 12:42 PM EST Comment:Pre-op diagnosis: CAD Bobby Loja MD HEMATOLOGY ORDERABLE S Performing Organization Address [facility] Co de Phone Number [facility] [place] [address] * (ABNORMAL) Blood Gas, Arterial POC (06/14/2024 12:15 PM EST) pH, Arterial 7.38 7.35 - 7.45 06/14/2024 12:16 PM EST [facility] PCO2, Arterial 40 35 - 45 mmHg 06/14/2024 12:16 PM EST [facility] Bicarbonate, Arterial 22.9 20.0 - 26.0 mmol/L 06/14/2024 12:16 PM EST [facility] Base Excess, Arterial -2.3 -3.0 - 3.0 mmol/L 06/14/2024 12:16 PM EST [facility] Hemoglobin, Arterial 11.4(L) 13.7 [...] MD POINT OF CARE TEST O RDERABLES [facility] [place] [address] * (ABNORMAL) Blood Gas, Arterial POC (06/14/2024 [...] - 1.33 mmol/L 06/14/2024 11:52 AM EST [facility] Glucose, Arterial 148 65 - 199 mg/dL 06/14/2024 11:52 AM EST [facility] Comment:Glucose Concentratio n >=200 mg/dL plus symptoms is consistent with Diabetes Mellitus. Blood ARTERIAL BLOOD / Unknown 06/14/2024 11:51 AM EST 06/14/2024 11:52 AM EST Haja Byrnes MD POINT OF CARE TEST O RDERABLES [facility] [place] [address] * (ABNORMAL) Blood Gas, Arterial POC (06/14/2024 [...] MD POINT OF CARE TEST O RDERABLES [facility] [place] [address] * (ABNORMAL) Scan, Peripheral Blood (06/14/2024 11:23 AM EST) RBC Morphology Abnormal 06/14/2024 11:59 AM [facility] Platelet Estimate Decreased(A) Normal 06/14/2024 11:59 AM [facility] [place] cells 1-5 /HPF 06/14/2024 11:59 AM [facility] Blood ARTERIAL BLOOD / Unknown 06/14/2024 11:23 AM EST 06/14/2024 11:27 AM EST Bobby Loja MD HEMATOLOGY ORDERABLE S [facility] [place] [address] * (ABNORMAL) Platelet count (06/14/2024 11:23 AM EST) Platelet 86(L) 145 - 357 x10(3)/mcL 06/14/2024 11:59 AM EST [facility] Blood ARTERIAL BLOOD / Unknown 06/14/2024 11:23 AM EST Comment:Pre-op diagnosis: CAD Bobby Loja MD HEMATOLOGY ORDERABLE S Performing Organization Address [facility]/ZIP Co de Phone Number [facility] [place] [address] * (ABNORMAL) Hemoglobin and Hematocrit, blood (06/14/2024 11:23 AM EST) Hemoglobin 9.8(L) 13.7 - 16.5 g/dL 06/14/2024 11:59 AM EST [facility] Comment:This result has been called to Danielle López by Satya Page on 06/14/2024 11:58:33. Hematocrit 30.5(L) 40.5 - 48.5 % 06/14/2024 11:59 AM EST [facility] Comment:This result has been called to Danielle López by Satya Page on 06/14/2024 11:58:40, and has been read back. Blood ARTERIAL BLOOD / Unknown 06/14/2024 11:23 AM EST 06/14/2024 11:27 AM EST Comment:Pre-op diagnosis: CAD Bobby Loja MD HEMATOLOGY ORDERABLE S Performing Organization Address City/[facility]/ZIP Co de Phone Number [facility] [place] [address] * (ABNORMAL) Blood Gas, Arterial POC (06/14/2024 10:58 AM [facility]) pH, Arterial 7.38 7.35 - 7.45 [...] MD POINT OF CARE TEST O RDERABLES [facility] [place] [address] * (ABNORMAL) Blood Gas, Arterial POC (06/14/2024 [...] MD POINT OF CARE TEST O RDERABLES [facility] [place] [address] * (ABNORMAL) Blood Gas, Arterial POC (06/14/2024 [...] POINT OF CARE TEST O RDERABLES [facility] [place] [address] * Surgical Pathology (06/14/2024 9:53 AM EST) Case Report Surgical Pathology Report ? Case: [id number] ? Authorizing Provider: ??Bobby Loja MD ? [...] Inking: External surface inked black Sections/Process ing: Potato Peeler sections in 4 cassettes labeled A1-A4. cmk B. Heart, Atrial Appendage, Left, . B - Labeled/Fixative : Heart, atrial appendage, left, fresh. Quantity/Size: Single, 3.3 x 1.5 x 0.8 cm. Tissue Description: Portion of heart tissue consisting of rodriguez-white, semitranslucent, smooth endocardium with rodriguez-brown muscular myocardium and thin translucent epicardium with adherent adipose tissue. No areas of discoloration identified. Sections/Process ing: Potato Peeler sections in 1 cassette labeled B1. cmk [...] Comment:MARIALUISA Bobby Loja MD PATHOLOGY/CYTOLOGY O RDERAPIETER [facility] [place] [address] * Cooximetry, POC (06/14/2024 9:00 AM EST) [...] MD POINT OF CARE TEST O RDERABLES [facility] [place] [address] * (ABNORMAL) Blood Gas, Arterial POC (06/14/2024 [...] - 107 mmol/L 06/14/2024 8:40 AM EST [facility] Lactate, Arterial 0.9 0.5 - 2.2 mmol/L 06/14/2024 8:40 AM EST [facility] IONIZED CALCIUM, ARTERIAL 1.17 1.15 - 1.33 mmol/L 06/14/2024 8:40 AM EST [facility] Glucose, Arterial 121 65 - 199 mg/dL 06/14/2024 8:40 AM EST [facility] Comment:Glucose Concentratio n >=200 mg/dL plus symptoms is consistent with Diabetes Mellitus. Blood ARTERIAL BLOOD / Unknown 06/14/2024 8:39 AM EST 06/14/2024 8:40 AM EST Haja Byrnes MD POINT OF CARE TEST O RDERABLES Performing Organization Address City/State/[facility] Co de Phone Number [facility] [place] [place] [address] * Transesophageal Echo/OR (06/14/2024 7:20 AM EST) Anatomical Region Laterality Modality Cardiac Other 06/14/2024 7:20 AM EST Narrative 06/14/2024 4:36 PM EST Version: 2 Study ID: [id number] [address] [place] [address] ?OR Transesophageal Echo Report Name: GEORGE MEHTA [...] mass after consultation with other director of sales and marketing experts and the decision was made by [...] ? 06/14/2024, 4: 38 PM Procedure Note Hoesa Ardon MD - 06/14/2024 Version: 2 Study ID: [id number] [address] [place] [id number] ORTransesophageal Echo Report Name: GEORGE MEHTA Study [...] mass after consultation with other director of sales and marketing experts and thedecision was made by surgeon [...] - 199 mg/dL 06/14/2024 7:12 AM EST [facility] Comment:Supplemental ranges: <140 mg/dL before meals <180 mg/dL all other times of the day. Blood CAPILLARY BLOOD / Unknown 06/14/2024 7:11 AM EST 06/14/2024 7:12 AM EST Haja Byrnes MD POINT OF CARE TEST O RDERABLES Performing Organization Address City/[facility]/ZIP Co de Phone Number [facility] [place] [address] * POC, GLUCOSE (06/14/2024 4:30 AM EST) Glucometer, POC 85 65 - 199 mg/dL 06/14/2024 4:30 AM EST [facility] Comment:Supplemental ranges: <140 mg/dL before meals <180 mg/dL all other times of the day. Blood CAPILLARY BLOOD / Unknown 06/14/2024 4:30 AM EST 06/14/2024 4:30 AM EST Haja Byrnes MD POINT OF CARE TEST O RDERABLES Performing Organization Address City/[facility]/ZIP Co de Phone Number [facility] [place] [address] * (ABNORMAL) Heparin (unfractionated) Level (06/14/2024 12:12 AM EST) Pathologist [facility] UF Heparin 1.02(HHH) IU/mL 06/14/2024 12:46 AM EST [facility] Comment: [...] EST Shahnaz Scanlon MD HEMATOLOGY ORDERABLE S [facility] [place] [address] * (ABNORMAL) CBC (with Diff) (06/14/2024 12:12 AM EST) Pathologist [facility] White Blood Cell 10.51(H) 4.00 - 9.50 x10(3)/mc L 06/14/2024 12:38 AM EST [facility] Red Blood Cell 4.99 4.58 - 5.54 x10(6)/mc L 06/14/2024 12:38 AM EST [facility] Hemoglobin 14.9 13.7 - 16.5 g/dL 06/14/2024 12:38 AM EST [facility] Hematocrit 45.9 40.5 - [...] 0.90 x10(3)/mc L 06/14/2024 12:38 AM EST [facility] Eos % 3.9 % 06/14/2024 12:38 AM EST [facility] Eos Absolute 0.41(H) 0.00 - 0.40 x10(3)/mc L 06/14/2024 12:38 AM EST [facility] Basophil % 0.8 % 06/14/2024 12:38 AM EST [facility] Baso Absolute 0.08 0.00 - 0.10 x10(3)/mc L 06/14/2024 12:38 AM EST [facility] Immature Gran % 0.6 % 12:38 AM [facility] Immature Gran Absolute 0.06(H) 0.00 - 0.04 x10(3)/mc L 06/14/2024 12:38 AM EST [facility] Blood VENOUS BLOOD SPECIMEN / Unknown Venipuncture / Unknown 06/14/2024 12:12 AM EST 06/14/2024 12:29 AM EST Shahnaz Scanlon MD HEMATOLOGY ORDERABLE S [facility] [place] [address] * Magnesium (06/14/2024 12:12 AM EST) Magnesium 0.74 0.69 - 1.07 mMol/L 06/14/2024 12:57 AM EST [facility] Blood VENOUS BLOOD SPECIMEN / Unknown Venipuncture / Unknown 06/14/2024 12:12 AM EST 06/14/2024 12:29 AM EST Shahnaz Scanlon MD CHEMISTRY ORDERABLES [facility] [place] [address] * (ABNORMAL) Basic Metabolic Panel (06/14/2024 12:12 [...] Scanlon MD CHEMISTRY ORDERABLES Performing Organization Address [facility]/ZIP Co de Phone Number [facility] [place] [address] * Scan Doc: Implantable Devices (06/14/2024 12:00 AM EST) Narrative 06/14/2024 12:00 AM EST Ordered by an unspecified provider. Scanning Provider MEDIA MGR SCAN EXT O RDR/RSLT * POC, GLUCOSE (06/13/2024 11:12 PM EST) Glucometer, POC 104 65 - 199 mg/dL 06/13/2024 11:13 PM EST [facility] Comment:Supplemental ranges: <140 mg/dL before meals <180 mg/dL all other times of the day. Blood CAPILLARY BLOOD / Unknown 06/13/2024 11:12 PM EST 06/13/2024 11:13 PM EST Haja Byrnes MD POINT OF CARE TEST O RDERABLES Performing Organization Address [facility]/ZIP Co de Phone Number [facility] [place] [address] * (ABNORMAL) POC, GLUCOSE (06/13/2024 8:03 PM EST) Glucometer, POC 206(H) 65 - 199 mg/dL 06/13/2024 8:03 PM EST [facility] Comment:Supplemental ranges: <140 mg/dL before meals <180 mg/dL all other times of the day. Blood CAPILLARY BLOOD / Unknown 06/13/2024 8:03 PM EST 06/13/2024 8:03 PM EST Haja Byrnes MD POINT OF CARE TEST O RDERABLES Performing Organization Address City/[facility]/ZIP Co de Phone Number [facility] [place] [address] * Heparin (unfractionated) Level (06/13/2024 4:11 PM EST) [facility] UF Heparin 0.76 IU/mL 06/13/2024 4:24 PM EST [facility] Comment: Heparin [...] EST Shahnaz Scanlon MD HEMATOLOGY ORDERABLE S [facility] [place] [address] * ABORH RECHECK (06/13/2024 4:11 PM EST) [facility] ABORH Recheck O POSITIVE 06/13/2024 4:50 PM EST [facility] Blood VENOUS BLOOD SPECIMEN / Unknown Venipuncture / Unknown 06/13/2024 4:11 PM EST 06/13/2024 4:19 PM EST Haja Byrnes MD BLOOD BANK LAB ORDER [facility] [place] [address] * (ABNORMAL) POC, GLUCOSE (06/13/2024 4:09 PM EST) Glucometer, POC 216(H) 65 - 199 mg/dL 06/13/2024 4:10 PM EST [facility] Comment:Supplemental ranges: <140 mg/dL before meals <180 mg/dL all other times of the day. Blood CAPILLARY BLOOD / Unknown 06/13/2024 4:09 PM EST 06/13/2024 4:10 PM EST Haja Byrnes MD POINT OF CARE TEST O RDERABLES [facility] [place] [address] * Type and screen ([facility]/CGP/RAFITA) (06/13/2024 11:53 AM EST) [facility] ABORH Type O POSITIVE 06/13/2024 1:16 PM EST [facility] PATIENT HISTORY Not Found 06/13/2024 1:16 PM EST [facility] Expires at [id number] on: 06/16/2024 06/13/2024 1:16 PM EST [facility] ANTIBODY SCREEN AUTOMATED Negative 06/13/2024 1:16 PM EST [facility] T&S only valid at [facility] 06/13/2024 1:16 PM EST [facility] Blood VENOUS BLOOD SPECIMEN / Unknown Venipuncture / Unknown 06/13/2024 11:53 AM EST 06/13/2024 11:56 AM EST Narrative [facility] - 06/13/2024 1:16 PM EST This Type and Screen result is only valid at the [facility] Haja Byrnes MD BLOOD BANK LAB ORDER [facility] [place] [address] * POC, GLUCOSE (06/13/2024 11:50 AM EST) Glucometer, POC 178 65 - 199 mg/dL 06/13/2024 11:51 AM EST [facility] Comment:Supplemental ranges: <140 mg/dL before meals <180 mg/dL all other times of the day. Blood CAPILLARY BLOOD / Unknown 06/13/2024 11:50 AM EST 06/13/2024 11:51 AM EST Haja Byrnes MD POINT OF CARE TEST O RDERABLES [facility] [place] [address] * XR Chest One View (06/13/2024 10:35 AM EST) WORKSTATION ID [id number] RAD Anatomical Region Laterality Modality Chest N/A [...] who have questions please contact the health health and social care teacher that requested your imaging first. [...] patients who have questions please contactthe health health and social care teacher that requested your imaging first. Electronically signed by: Jyothi Simon MD, [facility]([phone]), at 06/13/2024 10:43 AM Haja Byrnes MD IMG DX ORDERABLES * CARDIAC CATHETERIZATION (06/13/2024 9:02 AM EST) Anatomical Region Laterality Modality Other Narrative 06/15/2024 9:07 AM EST ?[facility] ? Cardiac Catheterization/Intervention Report ? Patient Name: Tyson, George L. ? Procedure Date: 06/13/2024 ? A #: [id number] ? Primary Physician: Nuha Shen I ? Case #: [id number] ? File Name: [id number] ? Catheterization Order Number: [id number] ? [facility] ? Final Report [place], [place] ? Patient Name: ? George L. Tyson ? ID#: ?[id number] ? : ?1955 ? Procedure Date: ? June 13, 2024 ?Case #: ? [id number] ? Room: ? 6 ? Case Physician: [...] ?was designated as ASA Class IV. The [facility] clinical frailty scale is 5: [...] procedure was Urgent. The indication for ?the microbiology laboratory manager visit is ACS greater than [...] angiography, vascular ?ultrasound and IABP insertion in microbiology laboratory manager. ? Nuha I Hermelinda, M.D. ? Electronically Signed by: Nuha Reyesry, M.D. ? Report Finalized: 06/15/2024 ??08:59 ? Procedure Note Nuha Shen MD - 06/15/2024 [facility] Cardiac Catheterization/Intervention Report Patient Name: George Mehta Procedure Date: 06/13/2024 A #: [id number] Primary Physician: Nuha Shen I Case #: [id number] File Name: [id number] Catheterization Order Number: [id number] [facility] FinalReport [place], [place] Patient Name: George Mehta ID#:[id number] :1955 Procedure Date: June 13, 2024 Case [...] was designated as ASA Class IV. The [facility] clinical frailty scale is5: Mildly [...] diagnostic procedure was Urgent. The indicationfor the microbiology laboratory manager visit is ACS greater than [...] site angiography,vascular ultrasound and IABP insertion in microbiology laboratory manager. Nuha Shen M.D. Electronically Signed by: Nuha Shen M.D. Report Finalized: 06/15/2024 08:59 Nuha Rojo MD CARDIAC CATH ORDERA BLES * Potassium (06/13/2024 7:48 AM EST) Potassium 4.5 3.5 - 5.0 mMol/L 06/13/2024 8:28 AM EST [facility] Blood VENOUS BLOOD SPECIMEN / Unknown Venipuncture / Unknown 06/13/2024 7:48 AM EST 06/13/2024 7:55 AM EST Shahnaz Scanlon MD CHEMISTRY ORDERABLES [facility] [place] [id number] * POC, GLUCOSE (06/13/2024 7:41 AM EST) Glucometer, POC 126 65 - 199 mg/dL 06/13/2024 7:41 AM EST [facility] Comment:Supplemental ranges: <140 mg/dL before meals <180 mg/dL all other times of the day. Blood CAPILLARY BLOOD / Unknown 06/13/2024 7:41 AM EST 06/13/2024 7:41 AM EST Ethel Carrillo MD POINT OF CARE TEST O NIKA Performing Organization Address [facility] de Phone Number [facility] [place] [address] * POC, GLUCOSE (06/13/2024 3:25 AM EST) Glucometer, POC 99 65 - 199 mg/dL 06/13/2024 3:25 AM EST [facility] Comment:Supplemental ranges: <140 mg/dL before meals <180 mg/dL all other times of the day. Blood CAPILLARY BLOOD / Unknown 06/13/2024 3:25 AM EST 06/13/2024 3:25 AM EST Ethel Carrillo MD POINT OF CARE TEST O NIKA Performing Organization Address [facility] de Phone Number [facility] [place] [address] * Heparin (unfractionated) Level (06/13/2024 2:26 AM EST) UF Heparin 0.60 IU/mL 06/13/2024 3:32 AM EST [facility] Comment: [...] EST Shahnaz Scanlon MD HEMATOLOGY ORDERABLE S [facility] [place] [address] * (ABNORMAL) CBC (with Diff) (06/13/2024 2:26 [...] EST Shahnaz Scanlon MD HEMATOLOGY ORDERABLE S [facility] [place] [address] * Magnesium (06/13/2024 2:26 AM EST) Magnesium 0.78 0.69 - 1.07 mMol/L 06/13/2024 2:58 AM EST [facility] Blood VENOUS BLOOD SPECIMEN / Unknown Venipuncture / Unknown 06/13/2024 2:26 AM EST 06/13/2024 2:31 AM EST Shahnaz Scanlon MD CHEMISTRY ORDERABLES Performing Organization Address City/[facility]/ZIP Co de Phone Number [facility] [place] [address] * (ABNORMAL) Basic Metabolic Panel (06/13/2024 2:26 [...] - 15 mMol/L 06/13/2024 2:58 AM EST [facility] Calcium 9.7 8.5 - 10.5 mg/dL 06/13/2024 2:58 AM EST [facility] Est Glomerular Filtration Rate - Male 76 mL/min/1. 73 m?? 06/13/2024 2:58 AM EST [facility] Comment: This patient's estimated [...] AM EST Shahnaz Scanlon MD CHEMISTRY ORDERABLES [facility] [place] [address] * POC, GLUCOSE (06/12/2024 11:53 PM EST) [facility] Signature Glucometer, POC 141 65 - 199 mg/dL 06/12/2024 11:54 PM EST [facility] Comment:Supplemental ranges: <140 mg/dL before meals <180 mg/dL all other times of the day. Blood CAPILLARY BLOOD / Unknown 06/12/2024 11:53 PM EST 06/12/2024 11:54 PM EST Ethel Carrillo MD POINT OF CARE TEST O RDERABLES Performing Organization Address City/[facility]/ZIP Co de Phone Number [facility] [place] [address] * POC, GLUCOSE (06/12/2024 7:32 PM EST) Glucometer, POC 158 65 - 199 mg/dL 06/12/2024 7:32 PM EST [facility] Comment:Supplemental ranges: <140 mg/dL before meals <180 mg/dL all other times of the day. Blood CAPILLARY BLOOD / Unknown 06/12/2024 7:32 PM EST 06/12/2024 7:32 PM EST Ethel Carrillo MD POINT OF CARE TEST O RDBECKIE Performing Organization Address City/[facility]/ZIP Co de Phone Number [facility] [place] [address] * POC, GLUCOSE (06/12/2024 3:41 PM EST) Glucometer, POC 113 65 - 199 mg/dL 06/12/2024 3:41 PM EST [facility] Comment:Supplemental ranges: <140 mg/dL before meals <180 mg/dL all other times of the day. Blood CAPILLARY BLOOD / Unknown 06/12/2024 3:41 PM EST 06/12/2024 3:41 PM EST Ethel Carrillo MD POINT OF CARE TEST O RDERAPIETER Performing Organization Address City/[facility]/ZIP Co de Phone Number [facility] [place] [address] * Potassium (06/12/2024 2:19 PM EST) Potassium 4.5 3.5 - 5.0 mMol/L 06/12/2024 2:45 PM EST [facility] Blood VENOUS BLOOD SPECIMEN / Unknown Venipuncture / Unknown 06/12/2024 2:19 PM EST 06/12/2024 2:23 PM EST Shahnaz Scanlon MD CHEMISTRY ORDERABLES [facility] [place] [address] * (ABNORMAL) POC, GLUCOSE (06/12/2024 11:21 AM EST) Glucometer, POC 207(H) 65 - 199 mg/dL 06/12/2024 11:21 AM EST [facility] Comment:Supplemental ranges: <140 mg/dL before meals <180 mg/dL all other times of the day. Blood CAPILLARY BLOOD / Unknown 06/12/2024 11:21 AM EST 06/12/2024 11:22 AM EST Ethel Carrillo MD POINT OF CARE TEST O NIKA Performing Organization Address City/[facility]/ZIP Co de Phone Number [facility] [place] [address] * POC, GLUCOSE (06/12/2024 8:00 AM EST) Glucometer, POC 169 65 - 199 mg/dL 06/12/2024 8:01 AM EST [facility] Comment:Supplemental ranges: <140 mg/dL before meals <180 mg/dL all other times of the day. Blood CAPILLARY BLOOD / Unknown 06/12/2024 8:00 AM EST 06/12/2024 8:01 AM EST Ethel Carrillo MD POINT OF CARE TEST O NIKA [facility] [place] [address] * POC, GLUCOSE (06/12/2024 4:25 AM EST) Glucometer, POC 132 65 - 199 mg/dL 06/12/2024 4:26 AM EST [facility] Comment:Supplemental ranges: <140 mg/dL before meals <180 mg/dL all other times of the day. Blood CAPILLARY BLOOD / Unknown 06/12/2024 4:25 AM EST 06/12/2024 4:26 AM EST Ethel Carrillo MD POINT OF CARE TEST O RDERABLES Performing Organization Address [facility]/ZIP Co de Phone Number [facility] [place] [address] * Heparin (unfractionated) Level (06/12/2024 3:03 AM EST) UF Heparin 0.55 IU/mL 06/12/2024 3:44 AM EST [facility] Comment: [...] MD HEMATOLOGY ORDERABLE S Performing Organization Address City/[facility]/ZIP Co de Phone Number [facility] [place] [address] * (ABNORMAL) CBC (with Diff) (06/12/2024 3:03 AM EST) White Blood Cell 9.69(H) 4.00 - 9.50 x10(3)/mc L 06/12/2024 3:36 AM EST [facility] Red Blood Cell 5.05 4.58 - 5.54 x10(6)/mc L 06/12/2024 3:36 AM EST [facility] Hemoglobin 15.2 13.7 - [...] % 11.1 % 06/12/2024 3:36 AM EST [facility] Monocyte Absolute 1.08(H) 0.30 - 0.90 x10(3)/mc L 06/12/2024 3:36 AM [facility] Eos % 4.1 % 06/12/2024 3:36 AM [facility] Eos Absolute 0.40 0.00 - 0.40 x10(3)/mc L 06/12/2024 3:36 AM EST [facility] Basophil % 0.8 % [...] EST Shahnaz Scanlon MD [place] [address] * Magnesium (06/12/2024 3:03 AM EST) Magnesium 0.79 0.69 - 1.07 mMol/L 06/12/2024 4:01 AM [facility] Blood VENOUS BLOOD SPECIMEN / Unknown Venipuncture / Unknown 06/12/2024 3:03 AM EST 06/12/2024 3:30 AM EST Shahnaz Scanlon MD CHEMISTRY ORDERABLES [facility] [place] [address] * (ABNORMAL) Basic Metabolic Panel (06/12/2024 3:03 [...] Scanlon MD CHEMISTRY ORDERABLES Performing Organization Address [facility] Co de Phone Number [facility] [place] [address] * POC, GLUCOSE (06/11/2024 11:56 PM EST) Glucometer, POC 135 65 - 199 mg/dL 06/11/2024 11:56 PM EST [facility] Comment:Supplemental ranges: <140 mg/dL before meals <180 mg/dL all other times of the day. Blood CAPILLARY BLOOD / Unknown 06/11/2024 11:56 PM EST 06/11/2024 11:56 PM EST Ethel Carrillo MD POINT OF CARE TEST Abimael MAHER Performing Organization Address [facility] de Phone Number [facility] [place] [address] * (ABNORMAL) POC, GLUCOSE (06/11/2024 8:25 PM EST) Glucometer, POC 210(H) 65 - 199 mg/dL 06/11/2024 8:26 PM EST [facility] Comment:Supplemental ranges: <140 mg/dL before meals <180 mg/dL all other times of the day. Blood CAPILLARY BLOOD / Unknown 06/11/2024 8:25 PM EST 06/11/2024 8:26 PM EST Ethel Carrillo MD POINT OF CARE TEST O NIKA Performing Organization Address [facility] Co de Phone Number [facility] [place] [address] * POC, GLUCOSE (06/11/2024 4:24 PM EST) Glucometer, POC 81 65 - 199 mg/dL 06/11/2024 4:24 PM EST [facility] Comment:Supplemental ranges: <140 mg/dL before meals <180 mg/dL all other times of the day. Blood CAPILLARY BLOOD / Unknown 06/11/2024 4:24 PM EST 06/11/2024 4:25 PM EST Ethel Carrillo MD POINT OF CARE TEST O RDERAPIETER Performing Organization Address City/[facility]/ZIP Co de Phone Number [facility] [place] [address] * (ABNORMAL) POC, GLUCOSE (06/11/2024 11:08 AM EST) Glucometer, POC 233(H) 65 - 199 mg/dL 06/11/2024 11:08 AM EST [facility] Comment:Supplemental ranges: <140 mg/dL before meals <180 mg/dL all other times of the day. Blood CAPILLARY BLOOD / Unknown 06/11/2024 11:08 AM EST 06/11/2024 11:08 AM EST Ethel Carrillo MD POINT OF CARE TEST O NIKA Performing Organization Address [facility]/ZIP Co de Phone Number [facility] [place] [address] * POC, GLUCOSE (06/11/2024 7:48 AM EST) Glucometer, POC 184 65 - 199 mg/dL 06/11/2024 7:49 AM EST [facility] Comment:Supplemental ranges: <140 mg/dL before meals <180 mg/dL all other times of the day. Blood CAPILLARY BLOOD / Unknown 06/11/2024 7:48 AM EST 06/11/2024 7:49 AM EST Melida Valdes MD POINT OF CARE TEST O RDERAPIETER Performing Organization Address City/[facility]/ZIP Co de Phone Number [facility] [place] [address] * Heparin (unfractionated) Level (06/11/2024 5:31 AM EST) UF Heparin 0.55 IU/mL 06/11/2024 6:10 AM EST [facility] Comment: [...] EST Shahnaz Scanlon MD HEMATOLOGY ORDERABLE S [facility] [place] [address] * POC, GLUCOSE (06/11/2024 3:57 AM EST) Glucometer, POC 132 65 - 199 mg/dL 06/11/2024 3:58 AM EST [facility] Comment:Supplemental ranges: <140 mg/dL before meals <180 mg/dL all other times of the day. Blood CAPILLARY BLOOD / Unknown 06/11/2024 3:57 AM EST 06/11/2024 3:58 AM EST Melida Valdes MD POINT OF CARE TEST O RDERABLES [facility] [place] [place] [address] * (ABNORMAL) CBC (with Diff) (06/11/2024 2:13 AM [facility]) [facility] White Blood Cell 9.91(H) 4.00 - [...] EST Shahnaz Scanlon MD HEMATOLOGY ORDERABLE S [facility] [place] [place] [address] * Magnesium (06/11/2024 2:13 AM EST) Magnesium 0.83 0.69 - 1.07 mMol/L 06/11/2024 2:51 AM EST [facility] Blood VENOUS BLOOD SPECIMEN / Unknown Venipuncture / Unknown 06/11/2024 2:13 AM EST 06/11/2024 2:19 AM EST Shahnaz Scanlon MD CHEMISTRY ORDERABLES [facility] [place] [place] [address] * (ABNORMAL) Basic Metabolic Panel (06/11/2024 2:13 AM EST) Pathologist [facility] Glucose 148 65 - 199 mg/dL 06/11/2024 [...] mL/min/1. 73 m?? 06/11/2024 2:51 AM EST [facility] Comment: This patient's estimated [...] Scanlon MD CHEMISTRY ORDERABLES Performing Organization Address [facility]/ZIP Co de Phone Number [facility] [place] [address] * POC, GLUCOSE (06/11/2024 12:50 AM EST) Glucometer, POC 144 65 - 199 mg/dL 06/11/2024 12:51 AM EST [facility] Comment:Supplemental ranges: <140 mg/dL before meals <180 mg/dL all other times of the day. Blood CAPILLARY BLOOD / Unknown 06/11/2024 12:50 AM EST 06/11/2024 12:51 AM EST Melida Valdes MD POINT OF CARE TEST O RDERABLES Performing Organization Address City/[facility]/ZIP Co de Phone Number [facility] [place] [address] * (ABNORMAL) POC, GLUCOSE (06/10/2024 7:22 PM EST) Glucometer, POC 236(H) 65 - 199 mg/dL 06/10/2024 7:22 PM EST [facility] Comment:Supplemental ranges: <140 mg/dL before meals <180 mg/dL all other times of the day. Blood CAPILLARY BLOOD / Unknown 06/10/2024 7:22 PM EST 06/10/2024 7:22 PM EST Melida Valdes MD POINT OF CARE TEST O RDERABLES [facility] [place] [place] [address] * (ABNORMAL) Blood Gas, Venous (06/10/2024 5:42 PM EST) pH, Venous 7.34 7.32 - 7.42 06/10/2024 5:50 PM EST [facility] PCO2, Venous 52 38 - 58 mmHg 06/10/2024 5:50 PM [facility] PO2, Venous 24 16 - 65 mmHg 06/10/2024 5:50 PM EST [facility] Bicarbonate, Venous 27.4 22 [...] Venous 39.0 % 06/10/2024 5:50 PM EST [facility] Carboxyhemoglobin , Venous 0.3 % 06/10/2024 5:50 PM [facility] Comment: Nonsmokers: 0.5-1.5% COHB ?? Smokers: Variable ??but usually less than 10% ?? Toxic: 20-30% COHB ?? Lethal: Greater than 60% COHB Methemoglobin, Venous 0.5 <=1.5 % 06/10/2024 5:50 PM EST [facility] Sodium, Venous 137 135 - 145 mmol/L 06/10/2024 5:50 PM EST [facility] Chloride, Venous 96(L) 98 [...] MD CHEMISTRY ORDERABLES [facility] [place] [place] [address] * POC, GLUCOSE (06/10/2024 5:35 PM EST) Glucometer, POC 123 65 - 199 mg/dL 06/10/2024 5:35 PM [facility] Comment:Supplemental ranges: <140 mg/dL before meals <180 mg/dL all other times of the day. Blood CAPILLARY BLOOD / Unknown 06/10/2024 5:35 PM EST 06/10/2024 5:35 PM EST Melida Valdes MD POINT OF CARE TEST O RDERABLES [facility] [place] [place] [address] * (ABNORMAL) POC, GLUCOSE (06/10/2024 11:25 AM EST) Glucometer, POC 216(H) 65 - 199 mg/dL 06/10/2024 11:25 AM EST [facility] Comment:Supplemental ranges: <140 mg/dL before meals <180 mg/dL all other times of the day. Blood CAPILLARY BLOOD / Unknown 06/10/2024 11:25 AM EST 06/10/2024 11:25 AM EST Melida Valdes MD POINT OF CARE TEST O NIKA Performing Organization Address City/[facility]/ZIP Co de Phone Number [facility] [place] [address] * (ABNORMAL) POC, GLUCOSE (06/10/2024 7:46 AM EST) Glucometer, POC 206(H) 65 - 199 mg/dL 06/10/2024 7:46 AM EST [facility] Comment:Supplemental ranges: <140 mg/dL before meals <180 mg/dL all other times of the day. Blood CAPILLARY BLOOD / Unknown 06/10/2024 7:46 AM EST 06/10/2024 7:46 AM EST Melida Valdes MD POINT OF CARE TEST O NIKA Performing Organization Address [facility] Co de Phone Number [facility] [place] [address] * POC, GLUCOSE (06/10/2024 4:23 AM EST) Glucometer, POC 154 65 - 199 mg/dL 06/10/2024 4:24 AM EST [facility] Comment:Supplemental ranges: <140 mg/dL before meals <180 mg/dL all other times of the day. Blood CAPILLARY BLOOD / Unknown 06/10/2024 4:23 AM EST 06/10/2024 4:24 AM EST Melida Valdes MD POINT OF CARE TEST O NIKA [facility] [place] [address] * (ABNORMAL) CBC (with Diff) (06/10/2024 1:55 [...] EST Shahnaz Scanlon MD HEMATOLOGY ORDERABLE S [facility] [place] [place] [address] * Magnesium (06/10/2024 1:55 AM EST) Magnesium 0.83 0.69 - 1.07 mMol/L 06/10/2024 2:37 AM EST [facility] Blood VENOUS BLOOD SPECIMEN / Unknown Venipuncture / Unknown 06/10/2024 1:55 AM EST 06/10/2024 2:05 AM EST Shahnaz Scanlon MD CHEMISTRY ORDERABLES [facility] [place] [address] * (ABNORMAL) Basic Metabolic Panel (06/10/2024 1:55 AM EST) Pathologist [facility] Glucose 140 65 - 199 mg/dL 06/10/2024 [...] AM EST Shahnaz Scanlon MD CHEMISTRY ORDERABLES [facility] [place] [address] * Heparin (unfractionated) Level (06/10/2024 1:54 AM EST) UF Heparin 0.56 IU/mL 06/10/2024 2:41 AM EST [facility] Comment: [...] MD HEMATOLOGY ORDERABLE S Performing Organization Address City/[facility]/ZIP Co de Phone Number [facility] [place] [address] * POC, GLUCOSE (06/10/2024 12:05 AM EST) Glucometer, POC 125 65 - 199 mg/dL 06/10/2024 12:05 AM EST [facility] Comment:Supplemental ranges: <140 mg/dL before meals <180 mg/dL all other times of the day. Blood CAPILLARY BLOOD / Unknown 06/10/2024 12:05 AM EST 06/10/2024 12:05 AM EST Melida Valdes MD POINT OF CARE TEST O RDERAPIETER Performing Organization Address [facility]/ZIP Co de Phone Number [facility] [place] [address] * POC, GLUCOSE (06/09/2024 8:36 PM EST) Glucometer, POC 197 65 - 199 mg/dL 06/09/2024 8:36 PM EST [facility] Comment:Supplemental ranges: <140 mg/dL before meals <180 mg/dL all other times of the day. Blood CAPILLARY BLOOD / Unknown 06/09/2024 8:36 PM EST 06/09/2024 8:36 PM EST Melida Valdes MD POINT OF CARE TEST O NIKA [facility] [place] [address] * POC, GLUCOSE (06/09/2024 5:27 PM EST) Glucometer, POC 174 65 - 199 mg/dL 06/09/2024 5:28 PM EST [facility] Comment:Supplemental ranges: <140 mg/dL before meals <180 mg/dL all other times of the day. Blood CAPILLARY BLOOD / Unknown 06/09/2024 5:27 PM EST 06/09/2024 5:28 PM EST Melida Valdes MD POINT OF CARE TEST O NIKA [facility] [place] [place] [address] * (ABNORMAL) POC, GLUCOSE (06/09/2024 11:52 AM EST) Glucometer, POC 211(H) 65 - 199 mg/dL 06/09/2024 11:52 AM EST [facility] Comment:Supplemental ranges: <140 mg/dL before meals <180 mg/dL all other times of the day. Blood CAPILLARY BLOOD / Unknown 06/09/2024 11:52 AM EST 06/09/2024 11:52 AM EST Melida Valdes MD POINT OF CARE TEST Abimael MAHER Performing Organization Address City/[facility]/ZIP Co de Phone Number [facility] [place] [address] * Potassium (06/09/2024 8:25 AM EST) Potassium 4.6 3.5 - 5.0 mMol/L 06/09/2024 10:09 AM EST [facility] Blood VENOUS BLOOD SPECIMEN / Unknown Venipuncture / Unknown 06/09/2024 8:25 AM EST 06/09/2024 8:42 AM EST Shahnaz Scanlon MD CHEMISTRY ORDERABLES Performing Organization Address City/[facility]/ZIP Co de Phone Number [facility] [place] [address] * (ABNORMAL) POC, GLUCOSE (06/09/2024 8:10 AM EST) Glucometer, POC 209(H) 65 - 199 mg/dL 06/09/2024 8:10 AM EST [facility] Comment:Supplemental ranges: <140 mg/dL before meals <180 mg/dL all other times of the day. Blood CAPILLARY BLOOD / Unknown 06/09/2024 8:10 AM EST 06/09/2024 8:11 AM EST Melida Valdes MD POINT OF CARE TEST O NIKA Performing Organization Address [facility] Co de Phone Number [facility] [place] [address] * POC, GLUCOSE (06/09/2024 4:40 AM EST) Glucometer, POC 131 65 - 199 mg/dL 06/09/2024 4:40 AM EST [facility] Comment:Supplemental ranges: <140 mg/dL before meals <180 mg/dL all other times of the day. Blood CAPILLARY BLOOD / Unknown 06/09/2024 4:40 AM EST 06/09/2024 4:41 AM EST Melida Valdes MD POINT OF CARE TEST O NIKA Performing Organization Address [facility] Co de Phone Number [facility] [place] [address] * Heparin (unfractionated) Level (06/09/2024 2:12 AM EST) UF Heparin 0.55 IU/mL 06/09/2024 2:33 AM EST [facility] Comment: [...] EST Shahnaz Scanlon MD HEMATOLOGY ORDERABLE S [facility] [place] [place] [address] * (ABNORMAL) CBC (with Diff) (06/09/2024 2:12 [...] 0.04 x10(3)/mc L 06/09/2024 2:44 AM EST [facility] Blood VENOUS BLOOD SPECIMEN / Unknown Venipuncture / Unknown 06/09/2024 2:12 AM EST 06/09/2024 2:21 AM EST Shahnaz Scanlon MD HEMATOLOGY ORDERABLE S Performing Organization Address [facility]/ZIP Co de Phone Number [facility] [place] [address] * Magnesium (06/09/2024 2:12 AM EST) Magnesium 0.83 0.69 - 1.07 mMol/L 06/09/2024 2:52 AM [facility] Blood VENOUS BLOOD SPECIMEN / Unknown Venipuncture / Unknown 06/09/2024 2:12 AM EST 06/09/2024 2:22 AM EST Shahnaz Scanlon MD CHEMISTRY ORDERABLES Performing Organization Address City/[facility] Co de Phone Number [facility] [place] [address] * (ABNORMAL) Basic Metabolic Panel (06/09/2024 2:12 [...] - 31 mMol/L 06/09/2024 2:52 AM EST [facility] Anion Gap 11 5 - 15 mMol/L 06/09/2024 2:52 AM EST [facility] Calcium 9.7 8.5 - 10.5 mg/dL 06/09/2024 2:52 AM EST [facility] Est Glomerular Filtration Rate - Male 73 mL/min/1. 73 m?? 06/09/2024 2:52 AM EST [facility] Comment: This patient's estimated [...] Scanlon MD CHEMISTRY ORDERABLES Performing Organization Address City/[facility]/ZIP Co de Phone Number [facility] [place] [address] * POC, GLUCOSE (06/09/2024 12:34 AM EST) [facility] Signature Glucometer, POC 186 65 - 199 mg/dL 06/09/2024 12:34 AM EST [facility] Comment:Supplemental ranges: <140 mg/dL before meals <180 mg/dL all other times of the day. Blood CAPILLARY BLOOD / Unknown 06/09/2024 12:34 AM EST 06/09/2024 12:34 AM EST Melida Valdes MD POINT OF CARE TEST O RDERABLES [facility] [place] [place] [address] * POC, GLUCOSE (06/08/2024 8:27 PM EST) Glucometer, POC 176 65 - 199 mg/dL 06/08/2024 8:28 PM EST [facility] Comment:Supplemental ranges: <140 mg/dL before meals <180 mg/dL all other times of the day. Blood CAPILLARY BLOOD / Unknown 06/08/2024 8:27 PM EST 06/08/2024 8:28 PM EST Melida Valdes MD POINT OF CARE TEST O NIKA Performing Organization Address [facility] de Phone Number [facility] [place] [address] * POC, GLUCOSE (06/08/2024 4:16 PM EST) Glucometer, POC 159 65 - 199 mg/dL 06/08/2024 4:16 PM EST [facility] Comment:Supplemental ranges: <140 mg/dL before meals <180 mg/dL all other times of the day. Blood CAPILLARY BLOOD / Unknown 06/08/2024 4:16 PM EST 06/08/2024 4:16 PM EST Melida Valdes MD POINT OF CARE TEST O NIKA Performing Organization Address [facility] Co de Phone Number [facility] [place] [place] [address] * (ABNORMAL) POC, GLUCOSE (06/08/2024 12:35 PM EST) Glucometer, POC 226(H) 65 - 199 mg/dL 06/08/2024 12:35 PM EST [facility] Comment:Supplemental ranges: <140 mg/dL before meals <180 mg/dL all other times of the day. Blood CAPILLARY BLOOD / Unknown 06/08/2024 12:35 PM EST 06/08/2024 12:35 PM EST Melida Valdes MD POINT OF CARE TEST O NIKA Performing Organization Address City/[facility] Co de Phone Number [facility] [place] [address] * POC, GLUCOSE (06/08/2024 8:10 AM EST) Glucometer, POC 190 65 - 199 mg/dL 06/08/2024 8:14 AM EST [facility] Comment:Supplemental ranges: <140 mg/dL before meals <180 mg/dL all other times of the day. Blood CAPILLARY BLOOD / Unknown 06/08/2024 8:10 AM EST 06/08/2024 8:14 AM EST Melida Valdes MD POINT OF CARE TEST O NIKA Performing Organization Address [facility] de Phone Number [facility] [place] [address] * POC, GLUCOSE (06/08/2024 4:09 AM EST) Glucometer, POC 151 65 - 199 mg/dL 06/08/2024 4:10 AM EST [facility] Comment:Supplemental ranges: <140 mg/dL before meals <180 mg/dL all other times of the day. Blood CAPILLARY BLOOD / Unknown 06/08/2024 4:09 AM EST 06/08/2024 4:10 AM EST Melida Valdes MD POINT OF CARE TEST O NIKA Performing Organization Address City/[facility] Co de Phone Number [facility] [place] [address] * Heparin (unfractionated) Level (06/08/2024 3:21 AM EST) UF Heparin 0.46 IU/mL 06/08/2024 3:41 AM EST [facility] Comment: [...] MD HEMATOLOGY ORDERABLE S Performing Organization Address City/State/[facility] Co de Phone Number [facility] [place] [place] [address] * (ABNORMAL) CBC (with Diff) (06/08/2024 3:21 AM EST) White Blood Cell 9.92(H) 4.00 - 9.50 x10(3)/mc L 06/08/2024 3:34 AM EST [facility] Red Blood Cell 5.09 4.58 - 5.54 x10(6)/mc L 06/08/2024 3:34 AM EST [facility] Hemoglobin 15.1 13.7 - [...] % 0.8 % 06/08/2024 3:34 AM EST [facility] Baso Absolute 0.08 0.00 - 0.10 x10(3)/mc L 06/08/2024 3:34 AM [facility] Immature Gran % 0.5 % 3:34 AM [facility] Immature Gran Absolute 0.05(H) 0.00 - 0.04 x10(3)/mc L 06/08/2024 3:34 AM EST [facility] Blood VENOUS BLOOD SPECIMEN / Unknown Venipuncture / Unknown 06/08/2024 3:21 AM EST 06/08/2024 3:27 AM EST Shahnaz Scanlon MD HEMATOLOGY ORDERABLE S Performing Organization Address City/[facility]/ZIP Co de Phone Number [facility] [place] [address] * Magnesium (06/08/2024 3:21 AM EST) Magnesium 0.84 0.69 - 1.07 mMol/L 06/08/2024 3:59 AM [facility] Blood VENOUS BLOOD SPECIMEN / Unknown Venipuncture / Unknown 06/08/2024 3:21 AM EST 06/08/2024 3:27 AM EST Shahnaz Scanlon MD CHEMISTRY ORDERABLES [facility] [place] [address] * (ABNORMAL) Basic Metabolic Panel (06/08/2024 3:21 [...] - 1.50 mg/dL 06/08/2024 3:59 AM EST [facility] Sodium 135 135 - [...] mL/min/1. 73 m?? 06/08/2024 3:59 AM EST [facility] Comment: This patient's estimated [...] AM EST Shahnaz Scanlon MD CHEMISTRY ORDERABLES [facility] [place] [address] * POC, GLUCOSE (06/07/2024 11:57 PM EST) Glucometer, POC 188 65 - 199 mg/dL 06/07/2024 11:57 PM EST [facility] Comment:Supplemental ranges: <140 mg/dL before meals <180 mg/dL all other times of the day. Blood CAPILLARY BLOOD / Unknown 06/07/2024 11:57 PM EST 06/07/2024 11:58 PM EST Melida Valdes MD POINT OF CARE TEST O NIKA Performing Organization Address City/[facility]/ZIP Co de Phone Number [facility] [place] [address] * POC, GLUCOSE (06/07/2024 8:05 PM EST) Glucometer, POC 118 65 - 199 mg/dL 06/07/2024 8:06 PM EST [facility] Comment:Supplemental ranges: <140 mg/dL before meals <180 mg/dL all other times of the day. Blood CAPILLARY BLOOD / Unknown 06/07/2024 8:05 PM EST 06/07/2024 8:06 PM EST Melida Valdes MD POINT OF CARE TEST O NIKA Performing Organization Address [facility] Co de Phone Number [facility] [place] [address] * Potassium (06/07/2024 5:22 PM EST) Potassium 4.6 3.5 - 5.0 mMol/L 06/07/2024 5:59 PM EST [facility] Blood VENOUS BLOOD SPECIMEN / Unknown Venipuncture / Unknown 06/07/2024 5:22 PM EST 06/07/2024 5:26 PM EST Shahnaz Scanlon MD CHEMISTRY ORDERABLES Performing Organization Address City/[facility] Co de Phone Number [facility] [place] [address] * POC, GLUCOSE (06/07/2024 4:31 PM EST) Glucometer, POC 174 65 - 199 mg/dL 06/07/2024 4:34 PM EST [facility] Comment:Supplemental ranges: <140 mg/dL before meals <180 mg/dL all other times of the day. Blood CAPILLARY BLOOD / Unknown 06/07/2024 4:31 PM EST 06/07/2024 4:34 PM EST Melida Valdes MD POINT OF CARE TEST O RDERABLES [facility] [place] [address] * MRI Cardiac Morphology Function wwo Contrast (06/07/2024 1:10 PM EST) Pathologist Shoopi WORKSTATION ID [id number] DH RAD Anatomical Region Laterality Modality Magnetic [...] - Mildly dilated left ventricle size with bwkkvoas-zz-anfzrafl decreased LV systolic function. ??LV ejection fraction [...] who have questions please contact the health health and social care teacher that requested your imaging first. ? Electronically signed by: Kriss Alonzo MD, [facility] ([phone]), at 06/07/2024 2:41 PM Narrative 06/07/2024 2:41 [...] VENTRICLE: Mildly dilated left ventricle size with ecajjsvi-lz-abqcvgvs decreased LV systolic function. ??LV ejection fraction [...] VENTRICLE: Mildly dilated left ventricle size with [id number] decreasedLV systolic function. LV ejection fraction is [...] - Mildly dilated left ventricle size with cajwtbrn-am-eeuegots decreasedLV systolic function. LV ejection fraction is [...] patients who have questions please contactthe health health and social care teacher that requested your imaging first. Electronically signed by: Kriss Alonzo MD, [facility]([phone]), at 06/07/2024 2:41 PM Delroy Fofana MD [facility] MRI ORDERABLES * (ABNORMAL) POC, GLUCOSE (06/07/2024 11:05 AM EST) Glucometer, POC 221(H) 65 - 199 mg/dL 06/07/2024 11:06 AM EST [facility] Comment:Supplemental ranges: <140 mg/dL before meals <180 mg/dL all other times of the day. Blood CAPILLARY BLOOD / Unknown 06/07/2024 11:05 AM EST 06/07/2024 11:06 AM EST Melida Valdes MD POINT OF CARE TEST O RDERABLES [facility] [place] [address] * (ABNORMAL) POC, GLUCOSE (06/07/2024 11:03 AM EST) Glucometer, POC 250(H) 65 - 199 mg/dL 06/07/2024 11:04 AM EST [facility] Comment:Supplemental ranges: <140 mg/dL before meals <180 mg/dL all other times of the day. Blood CAPILLARY BLOOD / Unknown 06/07/2024 11:03 AM EST 06/07/2024 11:04 AM EST Melida Valdes MD POINT OF CARE TEST O RDERABLES [facility] [place] [address] * Potassium (06/07/2024 9:44 AM EST) Potassium 4.7 3.5 - 5.0 mMol/L 06/07/2024 10:23 AM EST [facility] Blood VENOUS BLOOD SPECIMEN / Unknown Venipuncture / Unknown 06/07/2024 9:44 AM EST 06/07/2024 9:57 AM EST Shahnaz Scanlon MD CHEMISTRY ORDERABLES [facility] [place] [address] * POC, GLUCOSE (06/07/2024 7:45 AM EST) Glucometer, POC 175 65 - 199 mg/dL 06/07/2024 7:45 AM EST [facility] Comment:Supplemental ranges: <140 mg/dL before meals <180 mg/dL all other times of the day. Blood CAPILLARY BLOOD / Unknown 06/07/2024 7:45 AM EST 06/07/2024 7:46 AM EST Melida Valdes MD POINT OF CARE TEST O RDERABLES [facility] [place] [address] * XR Chest PA & Lateral (Generic) (06/07/2024 7:03 AM EST) WORKSTATION ID [id number] RAD Anatomical Region Laterality Modality Chest N/A [...] who have questions please contact the health health and social care teacher that requested your imaging first. ? Electronically signed by: Stuart Aponte MD, [facility] ??([phone]), at 06/07/2024 10:45 AM Narrative 06/07/2024 10:45 [...] patients who have questions please contactthe health health and social care teacher that requested your imaging first. Electronically signed by: Stuart Aponte MD, [facility]([phone]), at 06/07/2024 10:45 AM Shahnaz Scanlon MD IMG DX ORDERABLES * POC, GLUCOSE (06/07/2024 4:25 AM EST) [facility] Signature Glucometer, POC 127 65 - 199 mg/dL 06/07/2024 4:26 AM EST [facility] Comment:Supplemental ranges: <140 mg/dL before meals <180 mg/dL all other times of the day. Blood CAPILLARY BLOOD / Unknown 06/07/2024 4:25 AM EST 06/07/2024 4:26 AM EST Melida Valdes MD POINT OF CARE TEST O RDERABLES Performing Organization Address [facility]/ZIP Co de Phone Number [facility] [place] [address] * Heparin (unfractionated) Level (06/07/2024 2:41 AM EST) UF Heparin 0.45 IU/mL 06/07/2024 3:03 AM EST [facility] Comment: [...] EST Shahnaz Scanlon MD HEMATOLOGY ORDERABLE S [facility] [place] [address] * (ABNORMAL) CBC (with Diff) (06/07/2024 2:41 AM EST) White Blood Cell 10.06(H) 4.00 - 9.50 x10(3)/mc L 06/07/2024 2:58 AM EST [facility] Red Blood Cell 5.02 4.58 - 5.54 x10(6)/mc L 06/07/2024 2:58 AM EST [facility] Hemoglobin 14.8 13.7 - [...] EST Shahnaz Scanlon MD HEMATOLOGY ORDERABLE S [facility] [place] [address] * Magnesium (06/07/2024 2:41 AM EST) Magnesium 0.92 0.69 - 1.07 mMol/L 06/07/2024 3:25 AM [facility] Blood VENOUS BLOOD SPECIMEN / Unknown Venipuncture / Unknown 06/07/2024 2:41 AM EST 06/07/2024 2:51 AM EST Shahnaz Scanlon MD CHEMISTRY ORDERABLES [facility] [place] [address] * (ABNORMAL) Basic Metabolic Panel (06/07/2024 2:41 [...] Scanlon MD CHEMISTRY ORDERABLES Performing Organization Address City/[facility]/ZIP Co de Phone Number [facility] [place] [address] * POC, GLUCOSE (06/07/2024 12:08 AM EST) Glucometer, POC 182 65 - 199 mg/dL 06/07/2024 12:09 AM EST [facility] Comment:Supplemental ranges: <140 mg/dL before meals <180 mg/dL all other times of the day. Blood CAPILLARY BLOOD / Unknown 06/07/2024 12:08 AM EST 06/07/2024 12:09 AM EST Melida Valdes MD POINT OF CARE TEST O NIKA Performing Organization Address [facility] Co de Phone Number [facility] [place] [address] * POC, GLUCOSE (06/06/2024 8:18 PM EST) Glucometer, POC 143 65 - 199 mg/dL 06/06/2024 8:19 PM EST [facility] Comment:Supplemental ranges: <140 mg/dL before meals <180 mg/dL all other times of the day. Blood CAPILLARY BLOOD / Unknown 06/06/2024 8:18 PM EST 06/06/2024 8:19 PM EST Melida Valdes MD POINT OF CARE TEST O NIKA Performing Organization Address City/[facility]/ZIP Co de Phone Number [facility] [place] [address] * POC, GLUCOSE (06/06/2024 3:39 PM EST) Glucometer, POC 147 65 - 199 mg/dL 06/06/2024 3:40 PM EST [facility] Comment:Supplemental ranges: <140 mg/dL before meals <180 mg/dL all other times of the day. Blood CAPILLARY BLOOD / Unknown 06/06/2024 3:39 PM EST 06/06/2024 3:40 PM EST Melida Valdes MD POINT OF CARE TEST O NIKA Performing Organization Address City/[facility]/ZIP Co de Phone Number [facility] [place] [address] * Potassium (06/06/2024 2:37 PM EST) Potassium 4.3 3.5 - 5.0 mMol/L 06/06/2024 3:01 PM EST [facility] Blood VENOUS BLOOD SPECIMEN / Unknown Venipuncture / Unknown 06/06/2024 2:37 PM EST 06/06/2024 2:42 PM EST Shahnaz Scanlon MD CHEMISTRY ORDERABLES Performing Organization Address [facility] Co de Phone Number [facility] [place] [address] * (ABNORMAL) POC, GLUCOSE (06/06/2024 1:39 PM EST) Glucometer, POC 317(H) 65 - 199 mg/dL 06/06/2024 1:40 PM EST [facility] Comment:Supplemental ranges: <140 mg/dL before meals <180 mg/dL all other times of the day. Blood CAPILLARY BLOOD / Unknown 06/06/2024 1:39 PM EST 06/06/2024 1:41 PM EST Melida Valdes MD POINT OF CARE TEST O NIKA Performing Organization Address City/[facility]/ZIP Co de Phone Number [facility] [place] [address] * (ABNORMAL) POC, GLUCOSE (06/06/2024 11:34 AM EST) Glucometer, POC 264(H) 65 - 199 mg/dL 06/06/2024 11:35 AM EST [facility] Comment:Supplemental ranges: <140 mg/dL before meals <180 mg/dL all other times of the day. Blood CAPILLARY BLOOD / Unknown 06/06/2024 11:34 AM EST 06/06/2024 11:35 AM EST Melida Valdes MD POINT OF CARE TEST O RDBECKIE Performing Organization Address City/[facility] Co de Phone Number [facility] [place] [address] * Potassium (06/06/2024 10:17 AM EST) Potassium 4.3 3.5 - 5.0 mMol/L 06/06/2024 10:46 AM EST [facility] Blood VENOUS BLOOD SPECIMEN / Unknown Venipuncture / Unknown 06/06/2024 10:17 AM EST 06/06/2024 10:22 AM EST Shahnaz Scanlon MD CHEMISTRY ORDERABLES Performing Organization Address [facility] Co de Phone Number [facility] [place] [address] * POC, GLUCOSE (06/06/2024 7:57 AM EST) Glucometer, POC 195 65 - 199 mg/dL 06/06/2024 8:03 AM EST [facility] Comment:Supplemental ranges: <140 mg/dL before meals <180 mg/dL all other times of the day. Blood CAPILLARY BLOOD / Unknown 06/06/2024 7:57 AM EST 06/06/2024 8:03 AM EST Melida Valdes MD POINT OF CARE TEST O RDERAPIETER Performing Organization Address City/[facility] Co de Phone Number [facility] [place] [address] * POC, GLUCOSE (06/06/2024 6:53 AM EST) Glucometer, POC 187 65 - 199 mg/dL 06/06/2024 6:53 AM EST [facility] Comment:Supplemental ranges: <140 mg/dL before meals <180 mg/dL all other times of the day. Blood CAPILLARY BLOOD / Unknown 06/06/2024 6:53 AM EST 06/06/2024 6:54 AM EST Melida Valdes MD POINT OF CARE TEST O RDERABLES Performing Organization Address City/[facility]/ZIP Co de Phone Number [facility] [place] [address] * (ABNORMAL) Hemoglobin A1c (06/06/2024 3:33 AM EST) [facility] Hemoglobin A1c 7.1(H) 4.3 - 5.6 % 06/06/2024 1:01 PM EST [facility] Comment: [...] red blood cell turnover may not be eligibility services representative of glycemic control. Reference Interval: 4.3 - 5.6% 5.7 - 6.4%: Consistent with prediabetes >=6.5%: Consistent with diagnosis of diabetes mellitus Estimated Average Glucose 157 mg/dL 06/06/2024 1:01 PM EST [facility] Blood VENOUS BLOOD SPECIMEN / Unknown Venipuncture / Unknown 06/06/2024 3:33 AM EST 06/06/2024 3:48 AM EST Alejandra Baumann APRN CHEMISTRY ORDERAB LES Performing Organization Address City/[facility]/ZIP Co de Phone Number [facility] [place] [address] * Heparin (unfractionated) Level (06/06/2024 3:33 AM EST) Pathologist [facility] UF Heparin 0.36 IU/mL 06/06/2024 3:59 AM EST [facility] Comment: [...] MD HEMATOLOGY ORDERABLE S Performing Organization Address City/State/[facility] Co de Phone Number [facility] [place] [address] * (ABNORMAL) CBC (with Diff) (06/06/2024 3:33 AM EST) Pathologist [facility] White Blood Cell 9.81(H) 4.00 - 9.50 x10(3)/mc L 06/06/2024 3:54 AM EST [facility] Red Blood Cell 4.91 4.58 - 5.54 x10(6)/mc L 06/06/2024 3:54 AM EST [facility] Hemoglobin 14.6 13.7 - 16.5 g/dL 06/06/2024 3:54 AM EST [facility] Hematocrit 45.4 40.5 - [...] 0.90 x10(3)/mc L 06/06/2024 3:54 AM EST [facility] Eos % 3.0 % 06/06/2024 3:54 AM EST [facility] Eos Absolute 0.29 0.00 - 0.40 x10(3)/mc L 06/06/2024 3:54 AM EST [facility] Basophil % 0.9 % [...] EST Shahnaz Scanlon MD HEMATOLOGY ORDERABLE S [facility] [place] [address] * Magnesium (06/06/2024 3:33 AM EST) Magnesium 0.92 0.69 - 1.07 mMol/L 06/06/2024 4:17 AM EST [facility] Blood VENOUS BLOOD SPECIMEN / Unknown Venipuncture / Unknown 06/06/2024 3:33 AM EST 06/06/2024 3:47 AM EST Shahnaz Scanlon MD CHEMISTRY ORDERABLES [facility] [place] [address] * (ABNORMAL) Basic Metabolic Panel (06/06/2024 3:33 [...] AM EST Shahnaz Scanlon MD CHEMISTRY ORDERABLES [facility] [place] [address] * (ABNORMAL) POC, GLUCOSE (06/05/2024 10:31 PM EDT) Glucometer, POC 238(H) 65 - 199 mg/dL 06/05/2024 10:31 PM EDT [facility] Comment:Supplemental ranges: <140 mg/dL before meals <180 mg/dL all other times of the day. Blood CAPILLARY BLOOD / Unknown 06/05/2024 10:31 PM EDT 06/05/2024 10:31 PM EDT Melida Valdes MD POINT OF CARE TEST O RDERABLES [facility] [place] [address] * (ABNORMAL) POC, GLUCOSE (06/05/2024 4:22 PM EDT) Glucometer, POC 205(H) 65 - 199 mg/dL 06/05/2024 4:22 PM EDT [facility] Comment:Supplemental ranges: <140 mg/dL before meals <180 mg/dL all other times of the day. Blood CAPILLARY BLOOD / Unknown 06/05/2024 4:22 PM EDT 06/05/2024 4:23 PM EDT Melida Valdes MD POINT OF CARE TEST O RDERAPIETER [facility] [place] [address] * (ABNORMAL) POC, GLUCOSE (06/05/2024 11:34 AM EDT) Glucometer, POC 211(H) 65 - 199 mg/dL 06/05/2024 11:34 AM EDT [facility] Comment:Supplemental ranges: <140 mg/dL before meals <180 mg/dL all other times of the day. Blood CAPILLARY BLOOD / Unknown 06/05/2024 11:34 AM EDT 06/05/2024 11:34 AM EDT Melida Valdes MD POINT OF CARE TEST O NIKA Performing Organization Address City/[facility] Co de Phone Number [facility] [place] [address] * Potassium (06/05/2024 9:04 AM EDT) Potassium 4.3 3.5 - 5.0 mMol/L 06/05/2024 9:50 AM EDT [facility] Blood VENOUS BLOOD SPECIMEN / Unknown Venipuncture / Unknown 06/05/2024 9:04 AM EDT 06/05/2024 9:21 AM EDT Shahnaz Scanlon MD CHEMISTRY ORDERABLES Performing Organization Address [facility] Co de Phone Number [facility] [place] [address] * POC, GLUCOSE (06/05/2024 7:27 AM EDT) Glucometer, POC 166 65 - 199 mg/dL 06/05/2024 7:27 AM EDT [facility] Comment:Supplemental ranges: <140 mg/dL before meals <180 mg/dL all other times of the day. Blood CAPILLARY BLOOD / Unknown 06/05/2024 7:27 AM EDT 06/05/2024 7:27 AM EDT Melida Valdes MD POINT OF CARE TEST O NIKA Performing Organization Address [facility] Co de Phone Number [facility] [place] [address] * Heparin (unfractionated) Level (06/05/2024 3:44 AM EDT) UF Heparin 0.44 IU/mL 06/05/2024 4:07 AM EDT [facility] Comment: Heparin (anti-Xa) [...] EDT Shahnaz Scanlon MD HEMATOLOGY ORDERABLE S [facility] [place] [address] * (ABNORMAL) CBC (with Diff) (06/05/2024 3:44 AM EDT) White Blood Cell 10.83(H) 4.00 - 9.50 x10(3)/mc L 06/05/2024 3:56 AM EDT [facility] Red Blood Cell 5.07 4.58 - 5.54 x10(6)/mc L 06/05/2024 3:56 AM EDT [facility] Hemoglobin 15.3 13.7 - 16.5 g/dL 06/05/2024 3:56 AM EDT [facility] Hematocrit 46.8 40.5 - 48.5 % 06/05/2024 3:56 AM EDT [facility] Mean Cell Volume 92.3 82.9 - 93.1 fL 06/05/2024 3:56 AM [facility] Mean Cell Hemoglobin 30.2 27.5 - 32.1 pg 06/05/2024 3:56 AM [facility] Mean Cell Hemoglobin Concentration 32.7 32.0 - 35.7 g/dL 06/05/2024 3:56 AM [facility] Platelet 219 145 - 357 x10(3)/mc L 06/05/2024 3:56 AM [facility] Mean Platelet Volume 9.4 7.6 - 12.9 fL 06/05/2024 3:56 AM [facility] RDW Standard Deviation 46.7(H) 36.0 - 45.0 fL 06/05/2024 3:56 AM [facility] RDW coefficient of variation 13.9(H) 11.4 - 13.8 % 06/05/2024 3:56 AM [facility] NRBC% auto 0.0 % 06/05/2024 3:56 AM [facility] NRBC Absolute <0.01 <0.01 x10(3)/mc L 06/05/2024 3:56 AM [facility] Neutrophil % 61.5 % 06/05/2024 3:56 AM [facility] Neutrophil Absolute (ANC) - Automated 6.65(H) 1.70 - 6.10 x10(3)/mc L 06/05/2024 3:56 AM [facility] Lymph % 24.0 % 06/05/2024 3:56 AM [facility] Lymph Absolute 2.60 0.90 - 3.20 x10(3)/mc L 06/05/2024 3:56 AM [facility] Monocyte % 10.9 % 06/05/2024 3:56 AM [facility] Monocyte Absolute 1.18(H) 0.30 - 0.90 x10(3)/mc L 06/05/2024 3:56 AM [facility] Eos % 2.2 % 06/05/2024 3:56 AM EDT [facility] Eos Absolute 0.24 0.00 - 0.40 x10(3)/mc L 06/05/2024 3:56 AM EDT [facility] Basophil % 0.8 % 06/05/2024 3:56 AM EDT [facility] Baso Absolute 0.09 0.00 - 0.10 x10(3)/mc L 06/05/2024 3:56 AM EDT [facility] Immature Gran % 0.6 % 3:56 AM EDT [facility] Immature Gran Absolute 0.07(H) 0.00 - 0.04 x10(3)/mc L 06/05/2024 3:56 AM EDT [facility] Blood VENOUS BLOOD SPECIMEN / Unknown Venipuncture / Unknown 06/05/2024 3:44 AM EDT 06/05/2024 3:50 AM EDT Shahnaz Scanlon MD HEMATOLOGY ORDERABLE S [facility] [place] [address] * Magnesium (06/05/2024 3:44 AM EDT) Magnesium 0.92 0.69 - 1.07 mMol/L 06/05/2024 4:20 AM EDT [facility] Blood VENOUS BLOOD SPECIMEN / Unknown Venipuncture / Unknown 06/05/2024 3:44 AM EDT 06/05/2024 3:50 AM EDT Shahnaz Scanlon MD CHEMISTRY ORDERABLES [facility] [place] [address] * (ABNORMAL) Basic Metabolic Panel (06/05/2024 3:44 AM EDT) Glucose 155 65 - 199 mg/dL 06/05/2024 4:20 AM [facility] Comment:Glucose Concentratio n >=200 mg/dL plus symptoms is consistent with Diabetes Mellitus. Blood Urea Nitrogen 25(H) 10 - 20 mg/dL 06/05/2024 4:20 AM [facility] Creatinine 1.16 0.80 - 1.50 mg/dL 06/05/2024 4:20 AM [facility] Sodium 136 135 - 145 mMol/L 06/05/2024 4:20 AM [facility] Potassium 3.9 3.5 - 5.0 mMol/L 06/05/2024 4:20 AM [facility] Chloride 95(L) 98 - 107 mMol/L 06/05/2024 4:20 AM [facility] Carbon Dioxide 29 22 - 31 mMol/L 06/05/2024 4:20 AM [facility] Anion Gap 12 5 - 15 mMol/L 06/05/2024 4:20 AM [facility] Calcium 9.2 8.5 - 10.5 mg/dL 06/05/2024 4:20 AM [facility] Est Glomerular Filtration Rate - Male 69 mL/min/1. 73 m?? 06/05/2024 4:20 AM [facility] Comment: This patient's estimated GFR [...] Scanlon MD CHEMISTRY ORDERABLES Performing Organization Address City/[facility]/ZIP Co de Phone Number [facility] [place] [address] * Potassium (06/04/2024 10:34 PM EDT) Potassium 3.7 3.5 - 5.0 mMol/L 06/04/2024 11:03 PM EDT [facility] Blood VENOUS BLOOD SPECIMEN / Unknown Venipuncture / Unknown 06/04/2024 10:34 PM EDT 06/04/2024 10:39 PM EDT Shahnaz Scanlon MD CHEMISTRY ORDERABLES Performing Organization Address [facility] Co de Phone Number [facility] [place] [address] * POC, GLUCOSE (06/04/2024 7:43 PM EDT) Glucometer, POC 175 65 - 199 mg/dL 06/04/2024 7:43 PM EDT [facility] Comment:Supplemental ranges: <140 mg/dL before meals <180 mg/dL all other times of the day. Blood CAPILLARY BLOOD / Unknown 06/04/2024 7:43 PM EDT 06/04/2024 7:43 PM EDT Melida Valdes MD POINT OF CARE TEST O RDERABLES [facility] [place] [address] * Potassium (06/04/2024 4:35 PM EDT) Potassium 4.0 3.5 - 5.0 mMol/L 06/04/2024 5:32 PM EDT [facility] Blood VENOUS BLOOD SPECIMEN / Unknown Venipuncture / Unknown 06/04/2024 4:35 PM EDT 06/04/2024 4:40 PM EDT Shahnaz Scanlon MD CHEMISTRY ORDERABLES Performing Organization Address [facility] Co de Phone Number [facility] [place] [address] * POC, GLUCOSE (06/04/2024 3:26 PM EDT) Glucometer, POC 154 65 - 199 mg/dL 06/04/2024 3:26 PM EDT [facility] Comment:Supplemental ranges: <140 mg/dL before meals <180 mg/dL all other times of the day. Blood CAPILLARY BLOOD / Unknown 06/04/2024 3:26 PM EDT 06/04/2024 3:27 PM EDT Melida Valdes MD POINT OF CARE TEST O RDERABLES Performing Organization Address [facility] Co de Phone Number [facility] [place] [address] * POC, GLUCOSE (06/04/2024 11:09 AM EDT) Glucometer, POC 188 65 - 199 mg/dL 06/04/2024 11:09 AM EDT [facility] Comment:Supplemental ranges: <140 mg/dL before meals <180 mg/dL all other times of the day. Blood CAPILLARY BLOOD / Unknown 06/04/2024 11:09 AM EDT 06/04/2024 11:09 AM EDT Delroy Fofana MD POINT OF CARE TEST ORDERABLES Performing Organization Address [facility] Co de Phone Number [facility] [place] [address] * Heparin (unfractionated) Level (06/04/2024 10:41 AM EDT) UF Heparin 0.43 IU/mL 06/04/2024 11:06 AM EDT [facility] Comment: Heparin (anti-Xa) [...] EDT Shahnaz Scanlon MD HEMATOLOGY ORDERABLE S [facility] [place] [address] * Potassium (06/04/2024 10:41 AM EDT) Pathologist [facility] Potassium 4.0 3.5 - 5.0 mMol/L 06/04/2024 11:11 AM EDT [facility] Blood VENOUS BLOOD SPECIMEN / Unknown Venipuncture / Unknown 06/04/2024 10:41 AM EDT 06/04/2024 10:46 AM EDT Shahnaz Scanlon MD CHEMISTRY ORDERABLES Performing Organization Address City/[facility]/ZIP Co de Phone Number [facility] [place] [address] * POC, GLUCOSE (06/04/2024 7:11 AM EDT) Glucometer, POC 182 65 - 199 mg/dL 06/04/2024 7:12 AM EDT [facility] Comment:Supplemental ranges: <140 mg/dL before meals <180 mg/dL all other times of the day. Blood CAPILLARY BLOOD / Unknown 06/04/2024 7:11 AM EDT 06/04/2024 7:12 AM EDT Delroy Fofana MD POINT OF CARE TEST ORDERABLES Performing Organization Address [facility] Co de Phone Number [facility] [place] [address] * Heparin (unfractionated) Level (06/04/2024 4:38 AM EDT) UF Heparin 0.41 IU/mL 06/04/2024 5:19 AM EDT [facility] Comment: Heparin (anti-Xa) [...] MD HEMATOLOGY ORDERABLE S Performing Organization Address [facility]/ZIP Co de Phone Number [facility] [place] [address] * (ABNORMAL) CBC (with Diff) (06/04/2024 4:38 AM EDT) White Blood Cell 11.45(H) 4.00 - 9.50 x10(3)/mc L 06/04/2024 5:12 AM [facility] Red Blood Cell 5.35 4.58 - 5.54 x10(6)/mc L 06/04/2024 5:12 AM [facility] Hemoglobin 16.0 13.7 - 16.5 g/dL 06/04/2024 5:12 AM [facility] Hematocrit 49.6(H) 40.5 - 48.5 % 06/04/2024 5:12 AM [facility] Mean Cell Volume 92.7 82.9 - 93.1 fL 06/04/2024 5:12 AM [facility] Mean Cell Hemoglobin 29.9 27.5 - 32.1 pg 06/04/2024 5:12 AM [facility] Mean Cell Hemoglobin Concentration 32.3 32.0 - 35.7 g/dL 06/04/2024 5:12 AM [facility] Platelet 222 145 - 357 x10(3)/mc L 06/04/2024 5:12 AM [facility] Mean Platelet Volume 9.5 7.6 - 12.9 fL 06/04/2024 5:12 AM [facility] RDW Standard Deviation 47.6(H) 36.0 - 45.0 fL 06/04/2024 5:12 AM [facility] RDW coefficient of variation 14.1(H) 11.4 - 13.8 % 06/04/2024 5:12 AM [facility] NRBC% auto 0.0 % 06/04/2024 5:12 AM [facility] NRBC Absolute <0.01 <0.01 x10(3)/mc L 06/04/2024 5:12 AM [facility] Neutrophil % 60.3 % 06/04/2024 5:12 AM [facility] Neutrophil Absolute (ANC) - Automated 6.91(H) 1.70 - 6.10 x10(3)/mc L 06/04/2024 5:12 AM EDT [facility] Lymph % 25.1 % 06/04/2024 5:12 AM EDT [facility] Lymph Absolute 2.87 0.90 - 3.20 x10(3)/mc L 06/04/2024 5:12 AM EDT [facility] Monocyte % 10.6 % 06/04/2024 5:12 AM EDT [facility] Monocyte Absolute 1.21(H) 0.30 - 0.90 x10(3)/mc L 06/04/2024 5:12 AM EDT [facility] Eos % 2.8 % 06/04/2024 5:12 AM EDT [facility] Eos Absolute 0.32 0.00 - 0.40 x10(3)/mc L 06/04/2024 5:12 AM EDT [facility] Basophil % 0.7 % 06/04/2024 5:12 AM EDT [facility] Baso Absolute 0.08 0.00 - 0.10 x10(3)/mc L 06/04/2024 5:12 AM EDT [facility] Immature Gran % 0.5 % 5:12 AM EDT [facility] Immature Gran Absolute 0.06(H) 0.00 - 0.04 x10(3)/mc L 06/04/2024 5:12 AM EDT [facility] Blood VENOUS BLOOD SPECIMEN / Unknown Venipuncture / Unknown 06/04/2024 4:38 AM EDT 06/04/2024 5:07 AM EDT Shahnaz Scanlon MD HEMATOLOGY ORDERABLE S [facility] [place] [address] * Magnesium (06/04/2024 4:38 AM EDT) Magnesium 0.84 0.69 - 1.07 mMol/L 06/04/2024 5:35 AM EDT [facility] Blood VENOUS BLOOD SPECIMEN / Unknown Venipuncture / Unknown 06/04/2024 4:38 AM EDT 06/04/2024 5:07 AM EDT Shahnaz Scanlon MD CHEMISTRY ORDERABLES [facility] [place] [address] * (ABNORMAL) Basic Metabolic Panel (06/04/2024 4:38 AM EDT) Glucose 118 65 - 199 mg/dL 06/04/2024 5:35 AM EDT [facility] Comment:Glucose Concentratio n >=200 mg/dL plus symptoms is consistent with Diabetes Mellitus. Blood Urea Nitrogen 22(H) 10 - 20 mg/dL 06/04/2024 5:35 AM EDT [facility] Creatinine 1.22 0.80 - 1.50 mg/dL 06/04/2024 5:35 AM [facility] Sodium 137 135 - 145 mMol/L 06/04/2024 5:35 AM [facility] Potassium 3.6 3.5 - 5.0 mMol/L 06/04/2024 5:35 AM [facility] Chloride 97(L) 98 - 107 mMol/L 06/04/2024 5:35 AM EDT [facility] Carbon Dioxide 29 22 - 31 mMol/L 06/04/2024 5:35 AM EDT [facility] Anion Gap 11 5 - 15 mMol/L 06/04/2024 5:35 AM [facility] Calcium 9.0 8.5 - 10.5 [...] AM EDT Shahnaz Scanlon MD CHEMISTRY ORDERABLES [facility] [place] [address] * Heparin (unfractionated) Level (06/03/2024 8:58 PM EDT) UF Heparin 0.27 IU/mL 06/03/2024 9:33 PM EDT [facility] Comment: Heparin (anti-Xa) [...] EDT Shahnaz Scanlon MD HEMATOLOGY ORDERABLE S [facility] [place] [address] * POC, GLUCOSE (06/03/2024 8:05 PM EDT) Glucometer, POC 136 65 - 199 mg/dL 06/03/2024 8:05 PM EDT [facility] Comment:Supplemental ranges: <140 mg/dL before meals <180 mg/dL all other times of the day. Blood CAPILLARY BLOOD / Unknown 06/03/2024 8:05 PM EDT 06/03/2024 8:05 PM EDT Delroy Fofana MD POINT OF CARE TEST ORDERABLES Performing Organization Address [facility] Co de Phone Number [facility] [place] [address] * POC, GLUCOSE (06/03/2024 5:48 PM EDT) Glucometer, POC 191 65 - 199 mg/dL 06/03/2024 5:48 PM EDT [facility] Comment:Supplemental ranges: <140 mg/dL before meals <180 mg/dL all other times of the day. Blood CAPILLARY BLOOD / Unknown 06/03/2024 5:48 PM EDT 06/03/2024 5:49 PM EDT Delroy Fofana MD POINT OF CARE TEST ORDERABLES Performing Organization Address City/[facility]/ZIP Co de Phone Number [facility] [place] [address] * CT Chest wo Contrast (Generic) (06/03/2024 4:33 PM EDT) WORKSTATION ID [id number] DH RAD Anatomical Region Laterality Modality Chest Computed Tomogra phy Impressions 06/03/2024 4:47 PM EDT Cardiomegaly. Biventricular ICD leads in place. Thank you for letting us participate in the care of this patient. ??If you are a health care provider and have any questions regarding this report, please contact the number below. ??For patients who have questions please contact the health health and social care teacher that requested your imaging first. ? Electronically signed by: Stuart Aponte MD, [facility] ??([phone]), at 06/03/2024 4:47 PM Narrative 06/03/2024 4:47 [...] patients who have questions please contactthe health health and social care teacher that requested your imaging first. Electronically signed by: Stuart Aponte MD, [facility]([phone]), at 06/03/2024 4:47 PM Bobby Loja MD IMG CT ORDERABLES * Carotid Duplex, Bilateral (06/03/2024 2:19 PM EDT) VB Text Report Department: Vascular Surgery Lab Patient: [id number] (GEORGE MEHTA) CPT: 38789 Referring Physician: BOBBY LOJA ?? Phone: Indications: [...] Loja MD VASCULAR ORDERABLES Performing Organization Address [facility] de Phone Number [id number] * Heparin (unfractionated) Level (06/03/2024 12:48 PM EDT) UF Heparin 0.15 IU/mL 06/03/2024 1:13 PM EDT [facility] Comment: Heparin (anti-Xa) [...] MD HEMATOLOGY ORDERABLE S Performing Organization Address City/[facility] Co de Phone Number [facility] [place] [address] * POC, GLUCOSE (06/03/2024 11:14 AM EDT) Glucometer, POC 166 65 - 199 mg/dL 06/03/2024 11:14 AM EDT [facility] Comment:Supplemental ranges: <140 mg/dL before meals <180 mg/dL all other times of the day. Blood CAPILLARY BLOOD / Unknown 06/03/2024 11:14 AM EDT 06/03/2024 11:14 AM EDT Delroy Fofana MD POINT OF CARE TEST ORDERABLES [facility] [place] [address] * (ABNORMAL) Troponin-T, High Sensitivity 3 Hour (06/03/2024 10:06 AM EDT) Troponin-T, High Sensitivity 266(H) <=22 ng/L 06/03/2024 10:50 AM EDT [facility] Comment: This patient's [...] troponin value can be found in the Replaced By [facility] Test Catalog Troponin - https://[email or web address]-.testcatalog.org/catalogs/565/files/30758 Reference: Fourth [place] Definition of Myocardial Infarction. Journal of the [place] [employer] 2018;72:6334-5571 Troponin-T, HS 3 hr delta 06/03/2024 10:50 AM EDT [facility] Comment:Delta troponin value not calculated, sample collected outside of delta calculation time limit. Blood VENOUS BLOOD SPECIMEN / Unknown IP Care Team Draw / Unknown 06/03/2024 10:06 AM EDT 06/03/2024 10:15 AM EDT Delroy Fofana MD CHEMISTRY [facility] [place] [address] * ECHO COMPLETE W CONTRAST (06/03/2024 8:46 AM EDT) Anatomical Region Laterality Modality Cardiac Other 06/03/2024 6:52 AM EDT Narrative 06/03/2024 10:32 AM EDT [address] [place] [address] ? Echocardiogram Report Name: GEORGE MEHTA Raad ?Study Date: 06/03/2024 06:52 AM : 1955 ? Height: 168 cm ? Account: [id number] Age: 69 yrs ? Weight: 102 kg [...] fellow performed study of today's date). Procedure Complete-[id number]. Image enhancement Optison was used for left [...] Note Jonnie Jordan MD - 06/03/2024 [address] [place] [address] Echocardiogram Report Name: GEORGE MEHTA Study Date: 406:52 AM : 1955 Height: 168 cm Account: [id number] Age: 69 yrs Weight: 102 kg Gender: [...] a fellow performed study of's date). Procedure Complete-[id number]. Image enhancement Optison was used for left [...] 289(H) <=22 ng/L 06/03/2024 9:26 AM EDT [facility] Comment: This patient's [...] troponin value can be found in the Replaced By [facility] Test Catalog Troponin - https://[facility] servicesVisage Mobile.testcatalog.org/catalogs/565/files/82956 Reference: Fourth [place] Definition of Myocardial Infarction. Journal of the [place] [employer] 2018;72:6628-2487 Troponin-T, HS 1 hr delta 5 ng/L 06/03/2024 9:26 AM EDT [facility] Comment:The 1 hour Troponin T delta value is the absolute difference between the Troponin T concentrations of the initial and subsequent sample collected between 45 - 120 minutes following the initial collection. Blood VENOUS BLOOD SPECIMEN / Unknown IP Care Team Draw / Unknown 06/03/2024 8:27 AM EDT 06/03/2024 8:37 AM EDT Delroy Fofana MD CHEMISTRY ORDERABLE S [facility] [place] [address] * POC, GLUCOSE (06/03/2024 7:54 AM EDT) [facility] Signature Glucometer, POC 195 65 - 199 mg/dL 06/03/2024 7:55 AM EDT [facility] Comment:Supplemental ranges: <140 mg/dL before meals <180 mg/dL all other times of the day. Blood CAPILLARY BLOOD / Unknown 06/03/2024 7:54 AM EDT 06/03/2024 7:55 AM EDT Nuha Rojo MD POINT OF CARE TEST ORDERABLES [facility] [place] [place] [address] * (ABNORMAL) Troponin-T, High Sensitivity (06/03/2024 7:39 AM EDT) Pathologist [facility] Troponin-T, High Sensitivity Initial 284(H) <=22 ng/L 06/03/2024 8:29 AM EDT [facility] Comment: This patient's [...] troponin value can be found in the Replaced By [facility] Test Catalog Troponin - https://one-.testcatalog.org/catalogs/565/files/36110 Reference: Fourth [place] Definition of Myocardial Infarction. Journal of the [place] [employer] 2018;72:9609-7801 Blood VENOUS BLOOD SPECIMEN / Unknown IP Care Team Draw / Unknown 06/03/2024 7:39 AM EDT 06/03/2024 7:48 AM EDT Delroy Fofana MD CHEMISTRY ORDERABLE S [facility] [place] [address] * (ABNORMAL) Troponin-T, High Sensitivity 3 Hour (06/03/2024 5:11 AM EDT) Troponin-T, High Sensitivity 254(H) <=22 ng/L 06/03/2024 5:49 AM EDT [facility] Comment: This patient's [...] troponin value can be found in the Replaced By [facility] Test Catalog Troponin - https://[facility]-.testcatalog.org/catalogs/565/files/47061 Reference: Fourth [place] Definition of Myocardial Infarction. Journal of the [place] [employer] 2018;72:8730-9689 Troponin-T, HS 3 hr delta 46 ng/L 06/03/2024 5:49 AM EDT [facility] Comment:The 3 hour Troponin T delta value is the absolute difference between the Troponin T concentrations of the initial and subsequent sample collected between 2 h: 45 min and 6 h following the initial collection Blood VENOUS BLOOD SPECIMEN / Unknown IP Care Team Draw / Unknown 06/03/2024 5:11 AM EDT 06/03/2024 5:20 AM EDT Shahnaz Scanlon MD CHEMISTRY ORDERABLES [facility] [place] [address] * (ABNORMAL) Troponin-T, High Sensitivity 1 Hour (06/03/2024 3:07 AM EDT) Troponin-T, High Sensitivity 218(H) <=22 ng/L 06/03/2024 3:39 AM EDT [facility] Comment: This patient's [...] troponin value can be found in the Replaced By [facility] Test Catalog Troponin - https://[facility]-.testcatalog.org/catalogs/565/files/45559 Reference: Fourth [place] Definition of Myocardial Infarction. Journal of the [place] [employer] 2018;72:8187-8637 Troponin-T, HS 1 hr delta 10 ng/L 06/03/2024 3:39 AM EDT [facility] Comment:The 1 hour Troponin T delta value is the absolute difference between the Troponin T concentrations of the initial and subsequent sample collected between 45 - 120 minutes following the initial collection. Blood VENOUS BLOOD SPECIMEN / Unknown IP Care Team Draw / Unknown 06/03/2024 3:07 AM EDT 06/03/2024 3:12 AM EDT Shahnaz Scanlon MD CHEMISTRY ORDERABLES [facility] [place] [address] * XR Chest One View (06/03/2024 2:41 AM EDT) WORKSTATION ID [id number] RAD Anatomical Region Laterality Modality Chest N/A Digital Radiogra phy Impressions 06/03/2024 3:06 AM EDT No radiographically evident acute cardiopulmonary process. Thank you for letting us participate in the care of this patient. ??If you are a health care provider and have any questions regarding this report, please contact the number below. ??For patients who have questions please contact the health health and social care teacher that requested your imaging first. [...] patients who have questions please contactthe health health and social care teacher that requested your imaging first. Electronically signed by: Corazon Mauro MD, [facility]([phone]), at 06/03/2024 3:06 AM Shahnaz Scanlon MD IMG DX ORDERABLES * Heparin (unfractionated) Level (06/03/2024 2:13 AM EDT) UF Heparin 0.56 IU/mL 06/03/2024 4:13 AM EDT [facility] Comment: Heparin (anti-Xa) [...] EDT Shahnaz Scanlon MD HEMATOLOGY ORDERABLE S [facility] [place] [address] * (ABNORMAL) Troponin-T, High Sensitivity (06/03/2024 2:13 AM EDT) Troponin-T, High Sensitivity Initial 208(H) <=22 ng/L 06/03/2024 3:02 AM EDT [facility] Comment: This patient's [...] troponin value can be found in the Replaced By [facility] Test Catalog Troponin - https://[facility]-.testcatalog.org/catalogs/565/files/13827 Reference: Fourth [place] Definition of Myocardial Infarction. Journal of the [place] [employer]iology 2018;72:6818-0143 Blood VENOUS BLOOD SPECIMEN / Unknown IP Care Team Draw / Unknown 06/03/2024 2:13 AM EDT 06/03/2024 2:32 AM EDT Shahnaz Scanlon MD CHEMISTRY ORDERABLES Performing Organization Address City/[facility]/ZIP Co de Phone Number [facility] [place] [address] * Magnesium (06/03/2024 2:13 AM EDT) Magnesium 0.86 0.69 - 1.07 mMol/L 06/03/2024 3:02 AM EDT [facility] Blood VENOUS BLOOD SPECIMEN / Unknown IP Care Team Draw / Unknown 06/03/2024 2:13 AM EDT 06/03/2024 2:32 AM EDT Shahnaz Scanlon MD CHEMISTRY ORDERABLES [facility] [place] [address] * Basic Metabolic Panel (06/03/2024 2:13 AM EDT) Glucose 126 65 - 199 mg/dL 06/03/2024 3:02 AM EDT [facility] Comment:Glucose Concentratio n >=200 mg/dL plus symptoms is consistent with Diabetes Mellitus. Blood Urea Nitrogen 20 10 - 20 mg/dL 06/03/2024 3:02 AM EDT [facility] Creatinine 1.13 0.80 - 1.50 mg/dL 06/03/2024 3:02 AM [facility] Sodium 139 135 - 145 mMol/L 06/03/2024 3:02 AM [facility] Potassium 4.2 3.5 - 5.0 mMol/L 06/03/2024 3:02 AM [facility] Chloride 101 98 - 107 mMol/L 06/03/2024 3:02 AM [facility] Carbon Dioxide 26 22 - 31 mMol/L 06/03/2024 3:[facility] Anion Gap 12 5 - 15 mMol/L 06/03/2024 3:02 AM [facility] Calcium 9.8 8.5 - 10.5 mg/dL 06/03/2024 3:02 AM [facility] Est Glomerular Filtration Rate - [...] AM EDT Shahnaz Scanlon MD CHEMISTRY ORDERABLES [facility] [place] [address] * (ABNORMAL) CBC (with Diff) (06/03/2024 2:13 AM EDT) White Blood Cell 11.16(H) 4.00 - 9.50 x10(3)/mc L 06/03/2024 2:37 AM [facility] Red Blood Cell 5.09 4.58 - 5.54 x10(6)/mc L 06/03/2024 2:37 AM [facility] Hemoglobin 15.0 13.7 - 16.5 g/dL 06/03/2024 2:37 AM T [facility] Hematocrit 47.4 40.5 - 48.5 % 06/03/2024 2:37 AM [facility] Mean Cell Volume 93.1 82.9 - 93.1 fL 06/03/2024 2:37 AM [facility] Mean Cell Hemoglobin 29.5 27.5 - 32.1 pg 06/03/2024 2:37 AM [facility] Mean Cell Hemoglobin Concentration 31.6(L) 32.0 - 35.7 g/dL 06/03/2024 2:37 AM [facility] Platelet 217 145 - 357 x10(3)/mc L 06/03/2024 2:37 AM [facility] Mean Platelet Volume 9.5 7.6 - 12.9 fL 06/03/2024 2:37 AM [facility] RDW Standard Deviation 49.0(H) 36.0 - 45.0 fL 06/03/2024 2:37 AM [facility] RDW coefficient of variation 14.1(H) 11.4 - 13.8 % 06/03/2024 2:37 AM [facility] NRBC% auto 0.0 % 06/03/2024 2:37 AM [facility] NRBC Absolute <0.01 <0.01 x10(3)/mc L 06/03/2024 2:37 AM [facility] Neutrophil % 58.4 % 06/03/2024 2:37 AM [facility] Neutrophil Absolute (ANC) - Automated 6.51(H) 1.70 - 6.10 x10(3)/mc L 06/03/2024 2:37 AM [facility] Lymph % 29.9 % 06/03/2024 2:37 AM [facility] Lymph Absolute 3.34(H) 0.90 - 3.20 x10(3)/mc L 06/03/2024 2:37 AM [facility] Monocyte % 8.1 % 06/03/2024 2:37 AM [facility] Monocyte Absolute 0.90 0.30 - 0.90 x10(3)/mc L 06/03/2024 2:37 AM [facility] Eos % 2.4 % 06/03/2024 2:37 AM [facility] Eos Absolute 0.27 0.00 - 0.40 x10(3)/mc L 06/03/2024 2:37 AM EDT [facility] Basophil % 0.8 % 06/03/2024 2:37 AM EDT [facility] Baso Absolute 0.09 0.00 - 0.10 x10(3)/mc L 06/03/2024 2:37 AM EDT [facility] Immature Gran % 0.4 % 2:37 AM EDT [facility] Immature Gran Absolute 0.05(H) 0.00 - 0.04 x10(3)/mc L 06/03/2024 2:37 AM EDT [facility] Blood VENOUS BLOOD SPECIMEN / Unknown IP Care Team Draw / Unknown 06/03/2024 2:13 AM EDT 06/03/2024 2:31 AM EDT Shahnaz Scanlon MD HEMATOLOGY ORDERABLE S Performing Organization Address City/State/[facility] Co de Phone Number [facility] [place] [address] * Lipid Panel (Reflex Direct LDL) (06/03/2024 2:13 AM EDT) Cholesterol, Total 76 mg/dL 06/03/2024 3:02 AM [facility] Comment: Desirable: < 200 mg/dL Borderline High: 200 - 239 mg/dL High: > or = 240 mg/dL Triglyceride 75 mg/dL 06/03/2024 3:02 AM EDT [facility] Comment: Normal: <150 mg/dL Borderline High: 150-199 mg/dL High: 200-499 mg/dL Very High: > or =500 mg/dL HDL Cholesterol 39 mg/dL 3:02 AM EDT [facility] Comment:Males: High Risk: <4 0 mg/dL LDL Cholesterol 21 mg/dL 3:02 AM [facility] Comment: Desirable: <100 mg/dL Above Desirable: 100-129 mg/dL Borderline High: 130-159 mg/dL High: 160-189 mg/dL Very High: > or =190 mg/dL Note: LDL calculation updated to the NIH LDL formula as of 03/07/2024 Non-HDL Cholesterol 37 mg/dL 06/03/2024 3:02 AM EDT [facility] Comment: Desirable: <130 mg/dL [...] Scanlon MD CHEMISTRY ORDERABLES Performing Organization Address [facility] de Phone Number [facility] [place] [address] * (ABNORMAL) APTT (06/03/2024 2:13 AM EDT) Partial Thromboplastin Time 105(HHH) 25 - 37 sec 06/03/2024 4:13 AM EDT [facility] Comment: The PTT [...] MD HEMATOLOGY ORDERABLE S Performing Organization Address [facility] Co de Phone Number [facility] [place] [address] * Prothrombin Time (06/03/2024 2:13 AM EDT) Prothrombin Time 11.5 9.4 - 12.5 sec 06/03/2024 4:13 AM EDT [facility] International Normalization Ratio 1.0 <=4.9 06/03/2024 4:13 AM EDT [facility] Comment: An INR [...] EDT Shahnaz Scanlon MD HEMATOLOGY ORDERABLE S [facility] [place] [address] * Hepatic Function Panel (06/03/2024 2:13 AM EDT) Albumin 3.8 3.2 - 5.2 g/dL 06/03/2024 3:02 AM EDT [facility] Aspartate Aminotransferase 20 <=39 unit/L 06/03/2024 3:02 AM EDT [facility] Alanine Aminotransferase 12 0 - 55 unit/L 06/03/2024 3:02 AM EDT [facility] Alkaline Phosphatase 76 40 - 130 unit/L 06/03/2024 3:02 AM EDT [facility] Bilirubin, Total 0.4 <=1.3 mg/dL 06/03/2024 3:02 AM EDT [facility] Bilirubin, Direct <0.2 0.0 - 0.3 mg/dL 06/03/2024 3:02 AM EDT [facility] Protein, Total 7.0 6.1 - 8.0 g/dL 06/03/2024 3:02 AM EDT [facility] Blood VENOUS BLOOD SPECIMEN / Unknown IP Care Team Draw / Unknown 06/03/2024 2:13 AM EDT 06/03/2024 2:32 AM EDT Shahnaz Scanlon MD CHEMISTRY ORDERABLES Performing Organization Address City/[facility]/ZIP Co de Phone Number [facility] [place] [address] * (ABNORMAL) pro-Brain Natriuretic Peptide (06/03/2024 2:13 AM EDT) NT-proBNP 1,628(H) <=124 pg/mL 06/03/2024 4:15 AM EDT [facility] Blood VENOUS BLOOD SPECIMEN / Unknown IP Care Team Draw / Unknown 06/03/2024 2:13 AM EDT 06/03/2024 2:32 AM EDT Shahnaz Scanlon MD CHEMISTRY ORDERABLES Performing Organization Address [facility] Co de Phone Number [facility] [place] [address] * Phosphorus (06/03/2024 2:13 AM EDT) Phosphorus 4.4 2.5 - 4.5 mg/dL 06/03/2024 3:02 AM EDT [facility] Blood VENOUS BLOOD SPECIMEN / Unknown IP Care Team Draw / Unknown 06/03/2024 2:13 AM EDT 06/03/2024 2:32 AM EDT Shahnaz Scanlon MD CHEMISTRY ORDERABLES Performing Organization Address City/[facility]/ZIP Co de Phone Number [facility] [place] [address] * EKG 12 Lead (06/03/2024 1:45 AM EDT) Ventricular rate 63 BPM MUSE SYSTEM Atrial Rate 63 BPM MUSE SYSTEM P-R Interval 168 ms MUSE SYSTEM QRS Duration 96 ms MUSE SYSTEM Q-T Interval 400 ms MUSE SYSTEM QTC Calculated (Bezet) 409 ms MUSE SYSTEM Calculated P [place] 65 degrees MUSE SYSTEM Calculated R [place] 70 degrees MUSE SYSTEM Calculated T [place] -86 degrees MUSE SYSTEM INTERPRETATION Atrial-sensed ventricular-paced rhythm Abnormal ECG No previous ECGs available I personally reviewed the tracing and edited the fellows interpretation Confirmed by fellow Sunni Agudelo ([id number]) on 06/04/2024 3:55:40 PM Confirmed by MD Tamia, Stuart Perry ([id number]) on 06/05/2024 11:46:48 AM MUSE SYSTEM 06/03/2024 1:45 AM EDT 06/05/2024 11:46 AM EDT Shahnaz Scanlon MD ECG ORDERABLES MUSE SYSTEM * CARDIAC CATHETERIZATION (06/03/2024 12:42 AM EDT) Anatomical Region Laterality Modality Other Narrative 06/04/2024 2:22 PM EDT ?[facility] ? Cardiac Catheterization/Intervention Report ? Patient Name: George Mehta L. ? Procedure Date: 06/02/2024 ? A #: [id number] ? Primary Physician: Nuha Shen I ? Case #: [id number] ? File Name: [id number] ? Catheterization Order Number: [id number] ? [facility] ? Final Report [place], [place] ? Patient Name: ? George L. Tyson ? ID#: ?[id number] ? : ?1955 ? Procedure Date: ? [...] was designated as ASA Class IV. The [facility] clinical frailty ?scale is 5: Mildly Frail. ? Diagnostic Tests: ?Electrocardiography: ? EKG was assessed by ECG. EKG was Abnormal. EKG showed ST Deviation ? >= 0.5 mm. ?Medications Prior to Procedure: ? Sacubitril and Valsartan, Aspirin, Beta Erik, Statin and ? Thrombolytic (any). ? Indications for Diagnostic Cath: ?The priority of the diagnostic procedure was Emergent. The indication for ?the microbiology laboratory manager visit is ACS less than [...] ?3.5 guiding catheter and a 3.5 Fr [place] [place] [facility] [place] 20 Mhz using Manual ?pullback. ??Imaging was [...] 3.5 guiding catheter and a 3.5 Fr [place] [facility] [place] 20 Mhz using ?Manual pullback. ??Imaging was [...] Nuha Shen MD - 07/20/2024 [facility] Cardiac Catheterization/Intervention Report Patient Name: George Mehta Procedure Date: 06/02/2024 A #: [id number] Primary Physician: Nuha Shen I Case #: [id number] File Name: [id number] Catheterization Order Number: [id number] [facility] FinalReport [place], [place] Patient Name: George Mehta ID#:[id number] :1955 Procedure Date: June 02, 2024 Case [...] was designated as ASA Class IV. The [facility] clinicalfrailty scale is 5: Mildly Frail. Diagnostic Tests: Electrocardiography: EKG was assessed by ECG. EKG was Abnormal. EKG showed STDeviation >= 0.5 mm. Medications Prior to Procedure: Sacubitril and Valsartan, Aspirin, Beta Erik, Statin and Thrombolytic (any). Indications for Diagnostic Cath: The priority of the diagnostic procedure was Emergent. Theindication for the microbiology laboratory manager visit is ACS less than [...] units of heparin were administered. A total [id number] of Omnipaque were opened, 84cc of Omnipaque were administered krq43ha of Omnipaque were wasted. Radiation: Fluoro time [...] 3.5 guiding catheter and a 3.5 Fr [place] [facility] [place] 20 Mhz usingManual pullback. Imaging was successful. [...] 3.5 guiding catheter and a 3.5 Fr [place] [facility] [place] 20 Mhzusing Manual pullback. Imaging was successful. Indication: IVUS performed for pre intervention planning. Findings Pre-Intervention: scattered plaque, calcification and [id number] degrees calcification. Findings Post-Intervention: Stent not imaged [...] - 199 mg/dL 06/02/2024 11:31 PM EDT [facility] Comment:Supplemental ranges: <140 mg/dL before meals <180 mg/dL all other times of the day. Blood CAPILLARY BLOOD / Unknown 06/02/2024 11:31 PM EDT 06/02/2024 11:31 PM EDT Nuha Rojo MD POINT OF CARE TEST ORDERABLES Performing Organization Address City/State/[facility] Co de Phone Number [facility] [place] [phone] documented in this encounter Visit Diagnoses Not [...] 2100, Last dose on Fri06/23/24 at 0900, Mechanical Operator recommended duration is 3 days., Routine [...] 8:02 PM EST 2 tablets sodium chloride ([place]) 0.65 % nasal spray 1 spray 1 [...] 2100, Last dose on Fri06/23/24 at 0900, Mechanical Operator recommended duration is 3 days., Routine [...] Orozco, JAMIE) 836 (Given - Provider: Shazia Mcdonadl, JAMIE) potassium chloride ER ([place]) crystal [...] oral route first line., Routine sodium chloride ([place]) 0.65 % nasal spray 1 spray 1 [...] 6 hours upon arrival to Unit. Give ID if unable to take PO, Routine Group [...] Routine documented in this encounter Care Teams Wire Splicer Relationship Specialty Start Date End Date Mauro Berumen MD [address] [place] [address] PCP - General Family Medicine 06/02/24 documented as of this encounter
--- OUTSIDE RECORDS SUMMARY | 2024-09-08 11:01 | XMS_ITS | Encounter Summary ---
Author [facility] Address [facility] [place] [address] Care Team Providers Care Chute Puller Name Role Phone Mauro Berumen MD Primary Care Provider [phone] Encounter Details Date Type Department Care Team (Latest Contact Info) Description 06/03/2024 Travel Social History Tobacco Use Types Packs/Day Years Used Date Smoking Tobacco: Every Day Cigarettes Smokeless Tobacco: Never [facility] Utilities Answer Date Recorded In the [...] PM EST Office Visit Cardiology at [address] [address] Moi Falcon MD [facility] [place] [address] documented as of this encounter Visit Diagnoses Not on filedocumented in this encounter Care Teams Chute Puller Relationship Specialty Start Date End Date Mauro Berumen MD [address] [place] [id number] PCP - General Family Medicine 06/02/24 documented as of this encounter
--- OUTSIDE RECORDS SUMMARY | 2024-09-08 11:01 | XMS_ITS | Encounter Summary ---
Author Organization [facility] Address [facility] [place] [address] Care Team Providers Care Civil Drafter Name Role Phone Mauro Berumen MD Primary Care Provider [phone] Encounter Details Date Type Department Care Team (Late st Contact Info) Description 06/08/2024 Ophth [place] [address] Yumiko De La Torre, COT Social History Tobacco Use Types Packs/Day Years Used Date Smoking Tobacco: Every Day Cigarettes Smokeless Tobacco: Never [facility] Utilities Answer Date Recorded In [...] 2:00 PM EST Office Visit Cardiology at [address] [address] Moi Falcon MD [facility] [place] [address] documented as of this encounter Visit Diagnoses Not on filedocumented in this encounter Care Teams Civil Drafter Relationship Specialty Start Date End Date Mauro Berumen MD [address] [place] [address] PCP - General Family Medicine 06/02/24 documented as of this encounter
--- OUTSIDE RECORDS SUMMARY | 2024-09-08 11:01 | XMS_ITS | Encounter Summary ---
Author Organization [facility] Address [facility] [place] [address] Care Team Providers Care Television Engineering Teacher Name Role Phone Mauro Berumen MD Primary Care Provider [phone] Encounter Details Date Type Department Care Team (Late st Contact Info) Description 06/03/2024 Orders Only Cardiology [facility] [place] [phone] Unknown None Social History Tobacco Use Types Packs/Day Years Used Date Smoking Tobacco: Every Day Cigarettes Smokeless Tobacco: Never [facility] Utilities Answer Date Recorded In the past 12 months has th e electric, gas, oil, or water [employer] threatened to shut off services in your [...] time in the past 12 m [facility], were you homeless or living in a prison (including now)? No 06/03/2024 IPV Inpatient Questions [...] 2:00 PM EST Office Visit Cardiology at [address] [address] Moi Falcon MD [facility] [place] [address] documented as of this encounter Procedures Procedure Name Priority Date/Time Associated Diagnosis Comments ECHOCARDIOGRAM TRANSTHORACIC Routine 06/03/2024 2:23 AM EDT documented in this encounter Results * Echocardiogram Transthoracic (06/03/2024 2:23 AM EDT) Anatomical Region Laterality Modality Cardiac Other 06/03/2024 2:23 AM EDT Narrative 06/03/2024 10:32 AM EDT [address] [place] [id number] ? Echocardiogram Report Name: ARTURO NICHOLS ?Study Date: 06/03/2024 02:23 AM : 1955 Age: 69 yrs Gender: Male Performed By: Sascha Silva MD Reason For Study: STEMI Interpreting Fellow: Sascha Silva. Interpretation Summary Limited echo performed by fellow manager education to assess LV function. Left ventricle is mild to moderately dilated. Left ventricular ejection fraction is estimated visually at 25%. There is global dyskinesia with mid-basilar posterior-posterolateral akinesis. Right ventricle is not well seen. RV systolic function is probably normal. There is no prior echo for comparison. Procedure Limited - 34702. Suboptimal quality. Ventricular paced. Left Ventricle Left [...] Note Jonnie Jordan MD - 06/03/2024 [address] [place] [address] Echocardiogram Report Name: ARTURO NICHOLS Study Date: 06/03/2024 02:23AM : 1955 Age: 69 yrs Gender: Male Performed By: Sascha Silva MD Reason For Study: STEMI Interpreting Fellow: Sascha Silva. Interpretation Summary Limited echo performed by fellow manager education to assess LV function. Left ventricle is mild to moderately dilated. Left ventricular ejectionfraction is estimated visually at 25%. There is global dyskinesia withmid-basilar posterior-posterolateral akinesis. Right ventricle is not well seen. RV systolic function is probablynormal. There is no prior echo for comparison. Procedure Limited - 57958. Suboptimal quality. Ventricular paced. Left Ventricle Left [...] on filedocumented in this encounter Care Teams Television Engineering Teacher Relationship Specialty Start Date End Date Mauro Berumen MD [address] [place] [id number] PCP - General Family Medicine 06/02/24 documented as of this encounter
--- OUTSIDE RECORDS SUMMARY | 2024-09-08 11:02 | XMS_ITS | Encounter Summary ---
Author Organization Formerly [facility] [place] [address] Care Team Providers Care Commercial Review Appraiser Name Role Phone Mauro Berumen MD Primary Care Provider [phone] Reason for Visit * Auth/Cert Specialty Diagnoses / Procedures Referred By Carroll lopez Referred To Contact Diagnoses STEMI (ST elevation myocardial infarction) STEMI Procedures CARDIAC CATHETERIZATION EMERGENCY Delroy Monterroso MD [facility] [place] [address] [facility] Referral ID Status Reason Start Date Expiration Date Visits Re quested Visits Authorized [id number] 1 1 Encounter Details Date Type Department Care Team (Late st Contact Info) Description 06/02/2024 11:00 PM EDT - 06/03/2024 12:18 AM EDT [place] [address] Nuha Shen MD [facility] [place] [address] CARDIAC CATHETERIZATION Social History Tobacco Use Types Packs/Day Years Used Date Smoking Tobacco: Every Day Cigarettes Smokeless Tobacco: Never Tobacco Cessation:Ready to Q uit: No; Counseling Given: Yes [facility] Utilities Answer Date Recorded In the past 12 months has [employer], gas, oil, or water [employer] threatened to shut off services in [...] Patient Age: 69 y.o. Birthdate: 1955 Language: Citizen Of [place] Race: Choose not to Disclose Ethnicity: Not nor Admit Date: 06/02/2024 Discharge Date: 06/21/2024 Attending Physician: Bobby Loja MD Follow-up Recommendations for Providers: Please continue routine management of cardiovascular risk factors including blood pressure, lipids,glucose, etc. Please note any changes to medications. Patient to follow up with PCP, Mauro Berumen MD, in 1-2 weeks. Patient to follow up with Social Services Aide, Kristen Cardenas in 2-3 weeks. Patient to follow up with Cardiac Surgeon, Dr. Bobby Loja, in 4 wks. Inpatient Provider Contact Information: [facility] Section of Cardiac Surgery [facility] [address] FAX [phone] Discharge Diagnoses (Hospital Problems) Primary Diagnoses: STEMI [...] performed by Bobby Loja MD [facility] OR PRO CABG, ARTERY-VEIN, TWO N/A 06/14/2024 @CABG, TWO VENOUS GRAFTS & ARTERIAL GRAFT (WRVU 7.93) [facility] ENDOSCOPY W/VIDEO-ASST VEIN HARVEST, CABG N/A 06/14/2024 ENDOSCOPIC HARVEST VEIN(S) FOR CABG (WRVU 0.31) performed by Bobby Loja MD at [facility] OR PRO EXC MEDIASTINAL TUMOR N/A 06/14/2024 @EXCISION OF MEDIASTINAL TUMOR (WRVU 19.55) performed by Bobby Loja MD at [facility] OR PRO INSERT INTRA-AORTIC BALLOON ASST DEVICE PERCUTANEOUS N/A 06/13/2024 @INSERTION OF IABP,PERCUTANEOUS (WRVU 4.84) performed by Nuha Shen MD at [facility] CATH [facility]S PRO UNLISTED CARDIAC SURG PROCEDURE N/A 06/14/2024 EXPLORATION AND OVERSEW ATRIAL APPENDAGE (WRVU 5.94) performed by Bobby Loja MD at [facility] Prior To Admission Medications Medications [...] remote melanoma, and smoker who presented to [facility] last night via EMS after developing acute, severe chest pain while watching TV. Patient was ruled in for STEMI, given TNK, ASA, plavix, heparin gtt, and sent to [facility] for coronary angiography. LHC demonstrated severely calcified left coronary system with notable LCx 75/80% lesions and CANDY DIPPER OM1 with ISR with collateral retrograde filling, [...] Hospital Course: George Mehta was admitted to [facility] on 06/02/2024 via the CardiologyService with an anterior STEMI after receiving lytics at OSH. He was brought to the ship laborer which showed severely calcified left coronary system with notable LCx 75/80% lesions and CANDY DIPPER OM1 with ISR with collateral retrograde filling, [...] juice or regular (not diet) soda 6 fintonicavers small box of raisins 4 glucose tablets [...] 2 tablespoons of dried fruit. Milk and yl-lmjqq-ghtzt yogurt have 15 grams of carbs in a serving. A serving is 1 cup of milk or 3/4 cup (6 oz) of vq-wyodm-qqafu yogurt. Starchy vegetables have 15 grams of carbs in a serving. A serving is ?? cup of mashed potatoes or sweet potato; 1 cup winter squash; ?? of a small baked potato; ?? cup of cooked beans; or ?? cup cooked corn or green peas. Learn how much carbs to eat each day and at each meal. A dietitian or certified caregiver can teach you how to keep track [...] Bobby Loja and/or the Cardiac Surgery Physician Silk Screen Painter Team may be reached at . Weight: [...] Dr. Bobby Loja. You may use a [place] Track or treadmill but avoid any pulling [...] with the surgeon. Do not ride motorcycles, [employer]'stractors or horses. Avoid the use of a [...] should resume a low fat, low cholesterol, [place] Heart Association Diet/Diabetic diet. Driving: No driving [...] while being managed by your PCP and/or Social Services Aide. For future medication refills, please refer to your PCP and/or Social Services Aide after your discharge from our service. Thank you REMOVE CHEST TUBE SUTURES ON OR AFTER 06/24/2024 Home oxygen therapy: N/A Follow up appointments: You should follow up with your PCP, Mauro Berumen MD, in 1-2 weeks. You should follow up with your Social Services Aide, Dr CARDENAS. You have an appointment with your Cardiac Surgeon, Dr. Bobby Loja, in 4 wks. Cardiac Rehabilitation: George Mehta was seen today regarding participation in the outpatient Phase 2 Cardiac Rehabilitation at [facility]. The patient agrees to a referral to this program. The referral will be sent at discharge and the patient should be contacted by the program within 1-2 weeks from discharge. Future Appointments and Orders Future Orders Complete By Expires Referral to Cardiac Rehab [IMR369 Custom] As directed Process Instructions: If no progress note charted, please enter Clinical details in comments. Scheduling Instructions: Questions: My question or request is: s/p CABG- cardiac rehab at [facility] Referral to Home Health [REF34 Custom] As directed Process Instructions: If no progress note charted, please enter Clinical details in comments. Scheduling Instructions: Comments: Please evaluate George Mehta for admission to Home Health. [address] [facility] [address] (home) Date of : 1955 Inpatient DOCUMENTATION FOR VNA SERVICES (INCLUDING THOSE PATIENTS WITH MEDICARE COVERAGE REQUIRINGHOME VNA SERVICES AND/OR HOSPICE SERVICES) PATIENT'S LOCATION: George Mehta [address] [place] [address] [address] [facility] [address] (home) Telephone Information: Styrene Dehydration Reactor Operator's Name: self In discussion with the attending physician, it is certified that this patient is under their care and that they, or a Nurse Practitioner, or Physician Silk Screen Painter who is working directly with them, hada [...] for services as follows: HOME HEALTH AGENCY: [facility] [address] [place] [id number] RN orders: Cardiopulmonary assessment, incisional assessment, assess [...] issues please call the Cardiology Office at [phone] FOR MEDICARE ONLY: (please delete this section [...] As above. Signed: KEILA HANLEY APRN [facility] Section of Cardiac Surgery [facility] [address] FAX [phone] Date: 06/21/2024 CC: MD Antonino Tinajero Joshua R, PA [address] [place] [address] [place] [address] documented in this encounter Discharge Instructions * [...] 2 tablespoons of dried fruit. Milk and lt-npbut-oqkvu yogurt have 15 grams of carbs in a serving. A serving is 1 cup of milk or 3/4 cup (6 oz) of jd-xkdsx-nvbsp yogurt. Starchy vegetables have 15 grams of carbs in a serving. A serving is ?? cup of mashed potatoes or sweet potato; 1 cup winter squash; ?? of a small baked potato; ?? cup of cooked beans; or ?? cup cooked corn or green peas. Learn how much carbs to eat each day and at each meal. A dietitian or certified caregiver can teach you how to keep track [...] Bobby Loja and/or the Cardiac Surgery Physician Silk Screen Painter Team may be reached at . Weight: [...] Dr. Bobby Loja. You may use a [place] Track or treadmill but avoid any pulling [...] with the surgeon. Do not ride motorcycles, [employer]'stractors or horses. Avoid the use of a [...] should resume a low fat, low cholesterol, [place] Heart Association Diet/Diabetic diet. Driving: No driving [...] while being managed by your PCP and/or Social Services Aide. For future medication refills, please refer to your PCP and/or Social Services Aide after your discharge from our service. Thank you REMOVE CHEST TUBE SUTURES ON OR AFTER 06/24/2024 Home oxygen therapy: N/A Follow up appointments: You should follow up with your PCP, Mauro Berumen MD, in 1-2 weeks. You should follow up with your Social Services Aide, Dr CARDENAS. You have an appointment with your Cardiac Surgeon, Dr. Bobby Loja, in 4 wks. Cardiac Rehabilitation: George Mehta was seen today regarding participation in the outpatient Phase 2 Cardiac Rehabilitation at [facility]. The patient agrees to a referral [...] or weekly) [] Other * Alejandra Baumann, BREAST SURGEON - 06/21/2024 7:05 AM EST Follow Up [...] MARIALUISA clipping. PMH of chronic HFrEF s/p PERSONNEL WORKER/ICD, IDDM2, HTN, HLD, remote melanoma, active smoker. [...] 2 tablespoons of dried fruit. Milk and iw-ahgio-qhoku yogurt have 15 grams of carbs in a serving. A serving is 1 cup of milk or 3/4 cup (6 oz) of vn-opnhf-ygcfb yogurt. Starchy vegetables have 15 grams of carbs in a serving. A serving is ?? cup of mashed potatoes or sweet potato; 1 cup winter squash; ?? of a small baked potato; ?? cup of cooked beans; or ?? cup cooked corn or green peas. Learn how much carbs to eat each day and at each meal. A dietitian or certified caregiver can teach you how to keep track [...] cheese, and peanut butter. Alejandra Baumann APRN [facility] Endocrinology Diabetes Management Pager [phone] Weekends please page [phone] * Eric Packer PA - 06/20/2024 7:44 AM EST Cardiac Surgery Progress Note George Mehta is a 69 y.o. male with a history of CAD s/p multiple PCI who presented with an anterior STEMI and was given lytics. Cath showed MV CAD without culprit vessel. He is now 6 Days Post-OpCABGx3 and MARIALUISA clipping. PMH of chronic HFrEF s/p PERSONNEL WORKER/ICD, IDDM2, HTN, HLD, remote melanoma, active smoker. 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 06/20/2024 Between the hours of 1800 - 0600 and on the weekends please page [phone]. * Alejandra Baumann, BREAST SURGEON - 06/20/2024 7:21 AM EST Follow Up Diabetes Consult Patient Interview Blood glucose values and insulin use reviewed. district court reporter BG to 59 despite decrease in glargine [...] MARIALUISA clipping. PMH of chronic HFrEF s/p PERSONNEL WORKER/ICD, IDDM2, HTN, HLD, remote melanoma, active smoker. 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 Milk and ak-zffoe-iubwx yogurt have 15 grams of carbs in a serving. A serving is 1 cup of milk or 3/4 cup (6 oz) of lu-xustn-sdsuc yogurt. Starchy vegetables have 15 grams of carbs in a serving. A serving is ?? cup of mashed potatoes or sweet potato; 1 cup winter squash; ?? of a small baked potato; ?? cup of cooked beans; or ?? cup cooked corn or green peas. Learn how much carbs to eat each day and at each meal. A dietitian or certified caregiver can teach you how to keep track [...] MARIALUISA clipping. PMH of chronic HFrEF s/p PERSONNEL WORKER/ICD, IDDM2, HTN, HLD, remote melanoma, active smoker. 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 Jeffy Hood MD 06/19/2024 Between the hours of 1800 - 0600 and on the weekends please page [phone]. * Alejandra Baumann, BREAST SURGEON - 06/19/2024 7:09 AM EST Follow Up Diabetes Consult Patient Interview Blood glucose values and insulin use reviewed. Jardiance added back yesterday, home mission worker low BGto 51. Glargine reduced to [...] MARIALUISA clipping. PMH of chronic HFrEF s/p PERSONNEL WORKER/ICD, IDDM2, HTN, HLD, remote melanoma, active smoker. Jardiance added back yesterday. district court reporter low BG to 51. Glargine reduced to [...] 2 tablespoons of dried fruit. Milk and ie-jknhi-hdcyw yogurt have 15 grams of carbs in a serving. A serving is 1 cup of milk or 3/4 cup (6 oz) of lv-grxin-tuioh yogurt. Starchy vegetables have 15 grams of carbs in a serving. A serving is ?? cup of mashed potatoes or sweet potato; 1 cup winter squash; ?? of a small baked potato; ?? cup of cooked beans; or ?? cup cooked corn or green peas. Learn how much carbs to eat each day and at each meal. A dietitian or certified caregiver can teach you how to keep track [...] cheese, and peanut butter. Alejandra Baumann APRN [facility] Endocrinology Diabetes Management Pager [phone] Weekends please page [phone] * Hilda Resendez, DIAMOND DIE MAKER - 06/18/2024 9:19 AM EST Physical Therapy Note 2 Patient profile: George Mehta is a 69 y.o. male with a history of CAD s/p multiple PCI who presented with an anterior STEMI and was given lytics. Cath showed MV CAD without culprit vessel. He is now 1 Day Post-Op CABGx3 and MARIALUISA clipping. PMH of chronic HFrEF s/p PERSONNEL WORKER/ICD, IDDM2, HTN, HLD, remote melanoma, active smoker. Interval History: Per last cardiac surgery note on 06/18/2024 Cr improved 1.4 on lasix 40 iv bid -1.5L, made 2.5L urine Coreg, entresto restarted Floor status Social History: Pt lives with his in a 1 level apartment with no steps to enter. 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 He drives. He sleeps in a recliner at baseline. Precautions/Special Considerations: Sternal precautions, PIV, at risk to fall, PPM Mobility and Positioning Recommendations: Pt to utilize no AD, supervision for ambulation and transfers w/ clinical staff anesthesiologist as able. Please encourage up to chair [...] least restrictive device Time IN / OUT: 2823-7141 Total Time: 11 minutes; TEF 1 Hilda Resendez PTA Pager: [phone] Physical Therapy Inpatient Rehabilitation Department * Keila [...] MARIALUISA clipping. PMH of chronic HFrEF s/p PERSONNEL WORKER/ICD, IDDM2, HTN, HLD, remote melanoma, active smoker. 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 Restarting jardiance #Active smoker Duoneb prn Dispo: CVCC, Full code, tx to floor Discussed with attending surgeon on rounds this morning. KEILA HANLEY, JOSÉ ANTONIO 06/18/2024 Between the hours of 1800 - 0600 and on the weekends please page [phone]. * Alejandra Baumann, BREAST SURGEON - 06/17/2024 3:29 PM EST Follow Up [...] MARIALUISA clipping. PMH of chronic HFrEF s/p PERSONNEL WORKER/ICD, IDDM2, HTN, HLD, remote melanoma, active smoker. [...] based on ISF 20 Alejandra Baumann APRN [facility] Endocrinology Diabetes Management Pager [phone] Weekends please page [phone] 35 minutes were spent over the course [...] MARIALUISA clipping. PMH of chronic HFrEF s/p PERSONNEL WORKER/ICD, IDDM2, HTN, HLD, remote melanoma, active smoker. [...] 0600 and on the weekends please page [phone]. * Raymond Carlton MD - 06/16/2024 1:11 PM EST CARDIAC CRITICAL CARE ATTENDING STAFF PROGRESS NOTE Patient seen and examined. George Mehta is a 69 y.o. male with: Active Hospital Problems Diagnosis STEMI (ST elevation myocardial infarction) Cardiac resynchronization therapy defibrillator (PERSONNEL WORKER-D) - Medtronic Amplia Cardiomyopathy, ischemic Acute on chronic heart failure with reduced ejection fraction (HFrEF, <= 40%) Coronary artery disease involving [place] coronary artery of narr[place] heart without angina pectoris Type 2 diabetes [...] encouragement provided Patient screened for f/u and tech writer met pt at bedside. Pt states [...] unless consulted in the interim. RICHA Simmons Public Health Social Worker * Octaviano Horvath PA - 06/16/2024 8:07 AM EST Cardiac Surgery Progress Note George Mehta is a 69 y.o. male with a history of CAD s/p multiple PCI who presented with an anterior STEMI and was given lytics. Cath showed MV CAD without culprit vessel. He is now 2 Days Post-OpCABGx3 and MARIALUISA clipping. PMH of chronic HFrEF s/p PERSONNEL WORKER/ICD, IDDM2, HTN, HLD, remote melanoma, active smoker. [...] 0600 and on the weekends please page [phone]. * Jono Fernandez, PT - 06/15/2024 4:09 PM EST Physical Therapy Evaluation Patient profile: George Mehta is a 69 y.o. male with a history of CAD s/p multiple PCI who presented with an anterior STEMI and was given lytics. Cath showed MV CAD without culprit vessel. He is now 1 Day Post-Op CABGx3 and MARIALUISA clipping. PMH of chronic HFrEF s/p PERSONNEL WORKER/ICD, IDDM2, HTN, HLD, remote melanoma, active smoker. 24h Events: From OR on Dobutamine IABP removed Bedrest ended ~2100, sedation weaned Extubated ~0200 Dobutamine weaned to 1 this morning, CI 2.6, shut off and repeat CI 2.4 Social History: Pt lives with his in a 1 level apartment with no steps to enter. 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 He drives. He sleeps [...] outlined inthis evaluation. JONO FERNANDEZ, PT Pager: [phone] Physical Therapy Inpatient Rehabilitation Department Time IN / OUT: 6916-5267 Total Time: 33 (eval) minutes * Alejandra Baumann APRN - 06/15/2024 11:39 AM EST Follow Up Diabetes Consult Patient Interview Blood glucose values and insulin use reviewed. Pt remains on an insulin drip today following ONNSm4piy MARIALUISA clipping. George continues to complain of [...] MARIALUISA clipping. PMH of chronic HFrEF s/p PERSONNEL WORKER/ICD, IDDM2, HTN, HLD, remote melanoma, active smoker. [...] based on ISF 20 Alejandra Baumann APRN [facility] Endocrinology Diabetes Management Pager [phone] Weekends please page [phone] 50 minutes were spent over the course [...] elevation myocardial infarction) Cardiac resynchronization therapy defibrillator (PERSONNEL WORKER-D) - Medtronic Amplia Cardiomyopathy, ischemic Acute on chronic heart failure with reduced ejection fraction (HFrEF, <= 40%) Coronary artery disease involving [place] coronary artery of [place] heart without angina pectoris Type 2 diabetes [...] with h/o DM, CAD with prior PCI, PERSONNEL WORKER-D who presented with crushing chest pain, found [...] MARIALUISA clipping. PMH of chronic HFrEF s/p PERSONNEL WORKER/ICD, IDDM2, HTN, HLD, remote melanoma, active smoker. [...] sternotomy dressing CDI, saphenectomy dressing CDi Tubes/Lines/Drains: [place], RIJ, A-line, Mediastinal marcos and bilateral pleural [...] 0600 and on the weekends please page [phone]. * Yoli Donaldson, [facility] - 06/15/2024 5:35 AM EST AMV [...] with h/o DM, CAD with prior PCI, PERSONNEL WORKER-D who presented with crushing chest pain, found [...] with h/o DM, CAD with prior PCI, PERSONNEL WORKER-D who presented with crushing chest pain, found [...] 0600 and on the weekends please page [phone]. * Chloé Cortez - 06/14/2024 9:36 AM [...] unless consulted in the interim. Chloé Cortez Botany Technician * Jim Benites MD - 06/13/2024 1:15 [...] - Mildly dilated left ventricle size with wywyjndc-eb-zczbbyjg decreased LV systolic function. LV ejection fraction [...] elevation myocardial infarction) Cardiac resynchronization therapy defibrillator (PERSONNEL WORKER-D) - Medtronic Amplia Cardiomyopathy, ischemic Acute on chronic heart failure with reduced ejection fraction (HFrEF, <= 40%) Coronary artery disease involving [place] coronary artery of [place] heart without angina pectoris Type 2 diabetes [...] PCP: Mauro Berumen MD PCP phone number: [phone] Date of Admission: 06/02/2024 ( Hospital Day 10 days ) Attending:Ethel Carrillo MD ID: 69 y.o. male with a h/o DM type 2, HTN, HLD, current smoker (2-3 cigarettes/day), HFrEF with anICD for low EF (~30%), and CAD with prior ND x3 with JENNA placed in [place], Melanoma, PAD, presented to [facility] with 1 hour of retrosternal CP (05/13) while watching TV, found to have STEMI. Active Problems: Active Hospital Problems Diagnosis STEMI (ST elevation myocardial infarction) Cardiac resynchronization therapy defibrillator (PERSONNEL WORKER-D) - Medtronic Amplia Cardiomyopathy, ischemic Acute on chronic heart failure with reduced ejection fraction (HFrEF, <= 40%) Coronary artery disease involving [place] coronary artery of [place] heart without angina pectoris Type 2 diabetes [...] in the last 7068 hours. Invalid input(s): [id number] Recent Labs 06/12/24 0425 06/11/24 2356 06/11/24 2025 06/11/24 1624 06/11/24 1108 06/11/24 0748 06/11/24 0357 06/11/24 0050 06/10/24 1922 06/10/24 1735 06/10/24 1125 06/10/24 0746 POCGLU 132 135 210* 81 233* 184 132 144 236* 123 216* 206* Heme No results for input(s): LDH, HAPTOGLOBIN, URICACID in the last 168 hours. ABG (Arterial Blood Gas) No results found for: PHART, PO2ART, UXB4WMI, XDJ2LKB Microbiology: Microbiology Results (Last 30 days) No results found for the last 720 hours. Imaging: Results for orders placed or performed during the hospital encounter of 06/02/24 XR Chest One View (Exam End: 06/03/2024 2:41 AM) Result Value WORKSTATION ID [id number] Impression No radiographically evident acute cardiopulmonary process. Thank you for letting us participate in the care of this patient. If you are a health care provider and have any questions regarding this report, please contact the number below. For patients who have questions please contact the health animal caretaker supervisor that requested your imaging first. Electronically signed by: Corazon Mauro MD, [facility] ([phone]), at 06/03/2024 3:06 AM MRI Cardiac Morphology Function wwo Contrast (Exam End: 06/07/2024 1:10 PM) Result Value WORKSTATION ID [id number] Impression - Findings consistent with an ischemic [...] - Mildly dilated left ventricle size with bhfqvhwu-ys-cqloxtxy decreased LV systolic function. LV ejection fraction [...] who have questions please contact the health animal caretaker supervisor that requested your imaging first. Chest wo Contrast (Generic) (Exam End: 06/03/2024 4:33 PM) Result Value WORKSTATION ID [id number] Impression Cardiomegaly. Biventricular ICD leads in place. Thank you for letting us participate in the care of this patient. If you are a health care provider and have any questions regarding this report, please contact the number below. For patients who have questions please contact the health animal caretaker supervisor that requested your imaging first. Electronically signed by: Stuart Aponte MD, [facility] ([phone]), at 06/03/2024 4:47 PM XR Chest PA & Lateral (Generic) (Exam End: 06/07/2024 7:03 AM) Result Value WORKSTATION ID [id number] Impression Biventricular ICD leads intact and in [...] who have questions please contact the health animal caretaker supervisor that requested your imaging first. Electronically signed by: Stuart Aponte MD, [facility] ([phone]), at 06/07/2024 10:45 AM TTE: Limited echo performed by fellow fashion consultant to assess LV function. Left ventricle [...] Patient stable, asymptomatic. Plan to go to ship lab[employer] for balloon pump tomorrow, then willgo [...] CODE Dain Colón MD Cardiology, M1-S2, Pager #[phone] 06/12/24 Associated attestation - Ethel Carrillo MD [...] of two midnights or is on the [facility] inpatient only procedure list (status C) due to: acute myocardial infarction requiring titration of IV medication and fluid monitoring and decompensated congestive heart failure requiring IV medication and fluid monitoring Ethel Carrillo MD Cardiovascular Medicine Personal Pager [phone] 06/12/2024 9:12 PM * Alejandra Baumann, BREAST SURGEON - 06/11/2024 4:21 PM EST Images from [...] too aggressive, suggest ICR 1:6 (rule of [id number]/81 = 6.25). George is up and walking [...] ac, metformin 1000mg BID Alejandra Baumann APRN [facility] Endocrinology Diabetes Management Pager [phone] Weekends please page [phone] 35 minutes were spent over the course [...] PCP: Mauro Berumen MD PCP phone number: [phone] Date of Admission: 06/02/2024 ( Hospital Day 9 days ) Attending:Melida Valdes MD ID: 69 y.o. male with a h/o DM type 2, HTN, HLD, current smoker (2-3 cigarettes/day), HFrEF with anICD for low EF (~30%), and CAD with prior ND x3 with JENNA placed in [place], Melanoma, PAD, presented to [facility] with 1 hour of retrosternal CP (05/13) while watching TV, found to have STEMI. Active Problems: Active Hospital Problems Diagnosis STEMI (ST elevation myocardial infarction) Cardiac resynchronization therapy defibrillator (PERSONNEL WORKER-D) - Medtronic Amplia Cardiomyopathy, ischemic Acute on chronic heart failure with reduced ejection fraction (HFrEF, <= 40%) Coronary artery disease involving [place] coronary artery of [place] heart without angina pectoris Type 2 diabetes [...] in the last 7068 hours. Invalid input(s): [id number] Recent Labs 06/11/24 0357 06/11/24 0050 06/10/24 1922 06/10/24 1735 06/10/24 1125 06/10/24 0746 06/10/24 0423 06/10/24 0005 06/09/24 2036 06/09/24 1727 06/09/24 1152 06/09/24 0810 POCGLU 132 144 236* 123 216* 206* 154 125 197 174 211* 209* Heme No results for input(s): LDH, HAPTOGLOBIN, URICACID in the last 168 hours. ABG (Arterial Blood Gas) No results found for: PHART, PO2ART, ZZR2ETH, AFU4ZJD Microbiology: Microbiology Results (Last 30 days) No results found for the last 720 hours. Imaging: Results for orders placed or performed during the hospital encounter of 06/02/24 XR Chest One View (Exam End: 06/03/2024 2:41 AM) Result Value WORKSTATION ID [id number] Impression No radiographically evident acute cardiopulmonary process. Thank you for letting us participate in the care of this patient. If you are a health care provider and have any questions regarding this report, please contact the number below. For patients who have questions please contact the health animal caretaker supervisor that requested your imaging first. Electronically signed by: Corazon Mauro MD, [facility] ([phone]), at 06/03/2024 3:06 AM MRI Cardiac Morphology Function wwo Contrast (Exam End: 06/07/2024 1:10 PM) Result Value WORKSTATION ID [id number] Impression - Findings consistent with an ischemic [...] - Mildly dilated left ventricle size with nxnkwebw-wk-nngnvppw decreased LV systolic function. LV ejection fraction [...] who have questions please contact the health animal caretaker supervisor that requested your imaging first. Chest wo Contrast (Generic) (Exam End: 06/03/2024 4:33 PM) Result Value WORKSTATION ID [id number] Impression Cardiomegaly. Biventricular ICD leads in place. Thank you for letting us participate in the care of this patient. If you are a health care provider and have any questions regarding this report, please contact the number below. For patients who have questions please contact the health animal caretaker supervisor that requested your imaging first. Electronically signed by: Stuart Aponte MD, [facility] ([phone]), at 06/03/2024 4:47 PM XR Chest PA & Lateral (Generic) (Exam End: 06/07/2024 7:03 AM) Result Value WORKSTATION ID [id number] Impression Biventricular ICD leads intact and in [...] who have questions please contact the health animal caretaker supervisor that requested your imaging first. Electronically signed by: Stuart Aponte MD, [facility] ([phone]), at 06/07/2024 10:45 AM TTE: Limited echo performed by fellow fashion consultant to assess LV function. Left ventricle [...] placing this weekend and transfer to [facility], likely Friday. #ASCVD / STEMI: [...] Dain Colón MD Cardiology, M1-S2, Pager #[phone] 06/11/24 Associated attestation - Ethel Carrillo MD [...] of two midnights or is on the [facility] inpatient only procedure list (status C) due to: acute myocardial infarction requiring titration of IV medication and fluid monitoring and decompensated congestive heart failure requiring IV medication and fluid monitoring Ethel Carrillo MD Cardiovascular Medicine Personal Pager [phone] 06/11/2024 9:35 PM * Hilary Belle 06/10/2024 12:39 PM EST Nutrition Services Note George Mehta is a 69 y.o. male Reason for intervention: hospital day 9 Nutrition Plan: Continue diet order: 60/60/75 CHO Level 2 Encourage good PO Lasix and Insulin noted Monitor weight Patient scheduled for a hospital day 9 nutrition evaluation. Director Part attempted to meet with pt at bedside [...] unless consulted in the interim. Hilary Belle Public Health Social Worker * Mariia Montero RN - 06/10/2024 12:23 PM EST I have met with the patient to: discuss discharge planning needs. provide the [facility], Office of Care Management letter from the Internal Auditor pertaining to rehab referrals. provide a letter describing our affiliations within the [facility] and educate about their right to choose where referrals are sent. provide a list of Home Health Agencies / Durable Medical Equipment vendors which serve their preferred geographic area. provided patient with [facility] Star Quality Rating handout. They have requested referrals to: [facility]. [address] [place] [phone] RN / PT Anticipated d/c date: 06/20/24 Note routed to a On Air Director who will communicate referrals to facilities and provide any required information. * Dain Colón MD - 06/10/2024 7:17 AM EST Images from the original note were not included. . Cardiology Progress Note Patient info: Name: George Mehta : 1955 PCP: Mauro Berumen MD PCP phone number: [phone] Date of Admission: 06/02/2024 ( Hospital Day 8 days ) Attending:Melida Valdes MD ID: 69 y.o. male with a h/o DM type 2, HTN, HLD, current smoker (2-3 cigarettes/day), HFrEF with anICD for low EF (~30%), and CAD with prior ND x3 with JENNA placed in [place], Melanoma, PAD, presented to [facility] with 1 hour of retrosternal CP (05/13) while watching TV, found to have STEMI. Active Problems: Active Hospital Problems Diagnosis STEMI (ST elevation myocardial infarction) Cardiac resynchronization therapy defibrillator (PERSONNEL WORKER-D) - Medtronic Amplia Cardiomyopathy, ischemic Acute on chronic heart failure with reduced ejection fraction (HFrEF, <= 40%) Coronary artery disease involving [place] coronary artery of [place] heart without angina pectoris Type 2 diabetes [...] in the last 7068 hours. Invalid input(s): [id number] Recent Labs 06/10/24 0423 06/10/24 0005 06/09/24 2036 06/09/24 1727 06/09/24 1152 06/09/24 0810 06/09/24 0440 06/09/24 0034 06/08/24 2027 06/08/24 1616 06/08/24 1235 06/08/24 0810 POCGLU 154 125 197 174 211* 209* 131 186 176 159 226* 190 Heme No results for input(s): LDH, HAPTOGLOBIN, URICACID in the last 168 hours. ABG (Arterial Blood Gas) No results found for: PHART, PO2ART, RDP8ZZF, QOA5OIN Microbiology: Microbiology Results (Last 30 days) No results found for the last 720 hours. Imaging: Results for orders placed or performed during the hospital encounter of 06/02/24 XR Chest One View (Exam End: 06/03/2024 2:41 AM) Result Value WORKSTATION ID [id number] Impression No radiographically evident acute cardiopulmonary process. Thank you for letting us participate in the care of this patient. If you are a health care provider and have any questions regarding this report, please contact the number below. For patients who have questions please contact the health animal caretaker supervisor that requested your imaging first. Electronically signed by: Corazon Mauro MD, [facility] ([phone]), at 06/03/2024 3:06 AM MRI Cardiac Morphology Function wwo Contrast (Exam End: 06/07/2024 1:10 PM) Result Value WORKSTATION ID [id number] Impression - Findings consistent with an ischemic [...] - Mildly dilated left ventricle size with eqajsgbm-pg-sykryvro decreased LV systolic function. LV ejection fraction [...] who have questions please contact the health animal caretaker supervisor that requested your imaging first. Chest wo Contrast (Generic) (Exam End: 06/03/2024 4:33 PM) Result Value WORKSTATION ID [id number] Impression Cardiomegaly. Biventricular ICD leads in place. Thank you for letting us participate in the care of this patient. If you are a health care provider and have any questions regarding this report, please contact the number below. For patients who have questions please contact the health animal caretaker supervisor that requested your imaging first. Electronically signed by: Stuart Aponte MD, [facility] ([phone]), at 06/03/2024 4:47 PM XR Chest PA & Lateral (Generic) (Exam End: 06/07/2024 7:03 AM) Result Value WORKSTATION ID [id number] Impression Biventricular ICD leads intact and in [...] who have questions please contact the health animal caretaker supervisor that requested your imaging first. Electronically signed by: Stuart Aponte MD, [facility] ([phone]), at 06/07/2024 10:45 AM TTE: Limited echo performed by fellow fashion consultant to assess LV function. Left ventricle [...] CODE Dain Colón MD Cardiology, M1-S2, Pager #[phone] 06/10/24 Associated attestation - Melida Valdes MD [...] a lytic and brought directly to the Construction Trades [employer]. Cardiac catheterization demonstrated multivessel disease with [...] who is agreeable Melida Valdes MD Staff Social Services Aide * Cherelle Fregoso, JOSÉ ANTONIO - 06/09/2024 [...] PCP: Mauro Berumen MD PCP phone number: [phone] Date of Admission: 06/02/2024 ( Hospital Day 7 days ) Attending:Melida Valdes MD ID: 69 y.o. male with a h/o DM type 2, HTN, HLD, current smoker (2-3 cigarettes/day), HFrEF with anICD for low EF (~30%), and CAD with prior ND x3 with JENNA placed in [place], Melanoma, PAD, presented to [facility] with 1 hour of retrosternal CP (05/13) while watching TV, found to have STEMI. Active Problems: Active Hospital Problems Diagnosis STEMI (ST elevation myocardial infarction) Acute on chronic heart failure with reduced ejection fraction (HFrEF, <= 40%) Coronary artery disease involving [place] coronary artery of [place] heart without angina pectoris Type 2 diabetes [...] in the last 7068 hours. Invalid input(s): [id number] Recent Labs 06/09/24 0440 06/09/24 0034 06/08/24202606/08/24 1616 06/08/24 1235 06/08/24 0810 06/08/24 0409 06/07/24 2357 06/07/24 2005 06/07/24 1631 06/07/24 1105 06/07/24 1103 POCGLU 131 186 176 159 226* 190 151 188 118 174 221* 250* Heme No results for input(s): LDH, HAPTOGLOBIN, URICACID in the last 168 hours. ABG (Arterial Blood Gas) No results found for: PHART, PO2ART, IAP8BHL, FVY2DRV Microbiology: Microbiology Results (Last 30 days) No results found for the last 720 hours. Imaging: Results for orders placed or performed during the hospital encounter of 06/02/24 XR Chest One View (Exam End: 06/03/2024 2:41 AM) Result Value WORKSTATION ID [id number] Impression No radiographically evident acute cardiopulmonary process. Thank you for letting us participate in the care of this patient. If you are a health care provider and have any questions regarding this report, please contact the number below. For patients who have questions please contact the health animal caretaker supervisor that requested your imaging first. Electronically signed by: Corazon Mauro MD, [facility] ([phone]), at 06/03/2024 3:06 AM MRI Cardiac Morphology Function wwo Contrast (Exam End: 06/07/2024 1:10 PM) Result Value WORKSTATION ID [id number] Impression - Findings consistent with an ischemic [...] - Mildly dilated left ventricle size with mizbomln-xr-mkcawkly decreased LV systolic function. LV ejection fraction [...] who have questions please contact the health animal caretaker supervisor that requested your imaging first. Chest wo Contrast (Generic) (Exam End: 06/03/2024 4:33 PM) Result Value WORKSTATION ID [id number] Impression Cardiomegaly. Biventricular ICD leads in place. Thank you for letting us participate in the care of this patient. If you are a health care provider and have any questions regarding this report, please contact the number below. For patients who have questions please contact the health animal caretaker supervisor that requested your imaging first. Electronically signed by: Stuart Aponte MD, [facility] ([phone]), at 06/03/2024 4:47 PM XR Chest PA & Lateral (Generic) (Exam End: 06/07/2024 7:03 AM) Result Value WORKSTATION ID [id number] Impression Biventricular ICD leads intact and in [...] who have questions please contact the health animal caretaker supervisor that requested your imaging first. Electronically signed by: Stuart Aponte MD, [facility] ([phone]), at 06/07/2024 10:45 AM TTE: Limited echo performed by fellow fashion consultant to assess LV function. Left ventricle [...] Infusions: heparin (porcine) infusion 1,400 Units/hr (06/08/24 5456) PRN Meds:.glucose 40% oral geL OR dextrose [...] CODE Dain Colón MD Cardiology, M1-S2, Pager #[phone] 06/09/24 Associated attestation - Melida Valdes MD [...] a lytic and brought directly to the Construction Trades Teacher. Cardiac catheterization demonstrated multivessel disease with [...] insertion low EF. Melida Valdes MD Staff Social Services Aide * Alejandra Baumann, BREAST SURGEON - 06/08/2024 4:10 PM EST Images from [...] to optimize glucose control Alejandra Baumann APRN [facility] Endocrinology Diabetes Management Pager [phone] Weekends please page [phone] 35 minutes were spent over the course [...] PCP: Mauro Berumen MD PCP phone number: [phone] Date of Admission: 06/02/2024 ( Hospital Day 6 days ) Attending:Melida Valdes MD ID: 69 y.o. male with a h/o DM type 2, HTN, HLD, current smoker (2-3 cigarettes/day), HFrEF with anICD for low EF (~30%), and CAD with prior ND x3 with JENNA placed in [place], Melanoma, PAD, presented to [facility] with 1 hour of retrosternal CP (05/13) while watching TV, found to have STEMI. Active Problems: Active Hospital Problems Diagnosis STEMI (ST elevation myocardial infarction) Acute on chronic heart failure with reduced ejection fraction (HFrEF, <= 40%) Coronary artery disease involving [place] coronary artery of [place] heart without angina pectoris Type 2 diabetes [...] in the last 7068 hours. Invalid input(s): [id number] Recent Labs 06/08/24 0409 06/07/24 2357 06/07/24 2005 06/07/24 1631 06/07/24 1105 06/07/24 1103 06/07/24 0745 06/07/24 0425 06/07/24 0008 06/06/24 2018 06/06/24 1539 06/06/24 1339 POCGLU 151 188 118 174 221* 250* 175 127 182 143 147 317* Heme No results for input(s): LDH, HAPTOGLOBIN, URICACID in the last 168 hours. ABG (Arterial Blood Gas) No results found for: PHART, PO2ART, NFI2JQA, AJM7RUA Microbiology: Microbiology Results (Last 30 days) No results found for the last 720 hours. Imaging: Results for orders placed or performed during the hospital encounter of 06/02/24 XR Chest One View (Exam End: 06/03/2024 2:41 AM) Result Value WORKSTATION ID [id number] Impression No radiographically evident acute cardiopulmonary process. Thank you for letting us participate in the care of this patient. If you are a health care provider and have any questions regarding this report, please contact the number below. For patients who have questions please contact the health animal caretaker supervisor that requested your imaging first. Electronically signed by: Corazon Mauro MD, [facility] ([phone]), at 06/03/2024 3:06 AM MRI Cardiac Morphology Function wwo Contrast (Exam End: 06/07/2024 1:10 PM) Result Value WORKSTATION ID [id number] Impression - Findings consistent with an ischemic [...] - Mildly dilated left ventricle size with yabjudyn-re-hptgrqfs decreased LV systolic function. LV ejection fraction [...] who have questions please contact the health animal caretaker supervisor that requested your imaging first. Chest wo Contrast (Generic) (Exam End: 06/03/2024 4:33 PM) Result Value WORKSTATION ID [id number] Impression Cardiomegaly. Biventricular ICD leads in place. Thank you for letting us participate in the care of this patient. If you are a health care provider and have any questions regarding this report, please contact the number below. For patients who have questions please contact the health animal caretaker supervisor that requested your imaging first. Electronically signed by: Stuart Aponte MD, [facility] ([phone]), at 06/03/2024 4:47 PM XR Chest PA & Lateral (Generic) (Exam End: 06/07/2024 7:03 AM) Result Value WORKSTATION ID [id number] Impression Biventricular ICD leads intact and in [...] who have questions please contact the health animal caretaker supervisor that requested your imaging first. Electronically signed by: Stuart Aponte MD, [facility] ([phone]), at 06/07/2024 10:45 AM TTE: Limited echo performed by fellow fashion consultant to assess LV function. Left ventricle [...] CODE Dain Colón MD Cardiology, M1-S2, Pager #[phone] 06/08/24 Associated attestation - Melida Valdes MD [...] a lytic and brought directly to the Construction Trades Teacher. Cardiac catheterization demonstrated multivessel disease with [...] Otherwise clinically stable Melida Valdes MD Staff Social Services Aide * Ross Manuel PA - 06/07/2024 12:00 PM EST Cardiac Electrophysiology CIED Interrogation/Programming Note Asked by MRI staff to evaluate and program Medtronic PERSONNEL WORKER-D to allow for MR imaging. Patient Active Problem List Diagnosis ','STEMI (ST elevation myocardial infarction) Acute on chronic heart failure with reduced ejection fraction (HFrEF, <= 40%) Coronary artery disease involving [place] coronary artery of [place] heart without angina pectoris Type 2 diabetes mellitus Device Data: Medtronic Amplia MRI Quad PERSONNEL WORKER-D KHWY7PO #[id number] 06/16/2019 RA Medtronic 4076 CapSureFix Novus [id number] 06/16/2019 RV Medtronic 6935M [id number] 06/16/2019 LV Medtronic 4298 Attain Performa MRI [id number] 06/16/2019 DDD @ 50/130/130 Adaptive Bi-V and LV VF >188bpm ATP, 35j x6 FVT >188-222bpm burst 2, 35jx5 VT Battery longevity: 2.5yrs; charge time 4s P wave: 2.3mV R wave: >20.0mV Atrial impedance: 458 ohms RV impedance: 646 ohms LV impedance: 722 ohms Atrial threshold: 0.5V @ 0.4ms RV threshold: LV threshold: 1.75V @ 0.4ms AP 0.2% MACHINERY MOVER 97.7% AT/AF 0% Impression and Plan: 1. Interrogated device to determine suitability for MRI 2. Programmed to MRI safe mode - VOO @ 70 3. Scan performed 4. Programming restored to baseline settings 5. Reinterrogated to verify appropriate function and settings 6. Device follow up as previously scheduled Provider: HENOK Meyer EP Consult attending physician: Libby Barton MD EP Consult positional pager #[phone](EPMD) EP Device interrogation positional pager # [phone] * Dain Colón MD - 06/07/2024 7:09 AM EST Images from the original note were not included. . Cardiology Progress Note Patient info: Name: George Mehta : 1955 PCP: Mauro Berumen MD PCP phone number: [phone] Date of Admission: 06/02/2024 ( Hospital Day 5 days ) Attending:Melida Valdes MD ID: 69 y.o. male with a h/o DM type 2, HTN, HLD, current smoker (2-3 cigarettes/day), HFrEF with anICD for low EF (~30%), and CAD with prior ND x3 with JENNA placed in [place], Melanoma, PAD, presented to [facility] with 1 hour of retrosternal CP (05/13) while watching TV, found to have STEMI. Active Problems: Active Hospital Problems Diagnosis STEMI (ST elevation myocardial infarction) Acute on chronic heart failure with reduced ejection fraction (HFrEF, <= 40%) Coronary artery disease involving [place] coronary artery of [place] heart without angina pectoris Type 2 diabetes [...] in the last 7068 hours. Invalid input(s): [id number] Recent Labs 06/07/24 0425 06/07/24 0008 06/06/24 2018 06/06/24 1539 06/06/24 1339 06/06/24 1134 06/06/24 0757 06/06/24 0653 06/05/24 2231 06/05/24 1622 06/05/24 1134 06/05/24 0727 POCGLU 127 182 143 147 317* 264* 195 187 238* 205* 211* 166 Heme No results for input(s): LDH, HAPTOGLOBIN, URICACID in the last 168 hours. ABG (Arterial Blood Gas) No results found for: PHART, PO2ART, LUV7BWL, IWC7HMS Microbiology: Microbiology Results (Last 30 days) No results found for the last 720 hours. Imaging: Results for orders placed or performed during the hospital encounter of 06/02/24 XR Chest One View (Exam End: 06/03/2024 2:41 AM) Result Value WORKSTATION ID [id number] Impression No radiographically evident acute cardiopulmonary process. Thank you for letting us participate in the care of this patient. If you are a health care provider and have any questions regarding this report, please contact the number below. For patients who have questions please contact the health animal caretaker supervisor that requested your imaging first. Chest wo Contrast (Generic) (Exam End: 06/03/2024 4:33 PM) Result Value WORKSTATION ID [id number] Impression Cardiomegaly. Biventricular ICD leads in place. Thank you for letting us participate in the care of this patient. If you are a health care provider and have any questions regarding this report, please contact the number below. For patients who have questions please contact the health animal caretaker supervisor that requested your imaging first. Electronically signed by: Stuart Aponte MD, [facility] ([phone]), at 06/03/2024 4:47 PM TTE: Limited echo performed by fellow fashion consultant to assess LV function. Left ventricle [...] Dain Colón MD (PGY-1) Cardiology, M1-S2, Pager #[phone] 06/07/24 Associated attestation - Melida Valdes MD [...] a lytic and brought directly to the Construction Trades Teacher. Cardiac catheterization demonstrated multivessel disease with [...] for further guidance. Melida Valdes MD Staff Social Services Aide * Dain Colón MD - 06/06/2024 7:17 AM EST Images from the original note were not included. . Cardiology Progress Note Patient info: Name: George Mehta : 1955 PCP: Mauro Berumen MD PCP phone number: [phone] Date of Admission: 06/02/2024 ( Hospital Day 4 days ) Attending:Melida Valdes MD ID: 69 y.o. male with a h/o DM type 2, HTN, HLD, current smoker (2-3 cigarettes/day), HFrEF with anICD for low EF (~30%), and CAD with prior ND x3 with JENNA placed in [place], Melanoma, PAD, presented to [facility] with 1 hour of retrosternal CP (05/13) while watching TV, found to have STEMI. Active Problems: Active Hospital Problems Diagnosis STEMI (ST elevation myocardial infarction) Acute on chronic heart failure with reduced ejection fraction (HFrEF, <= 40%) Coronary artery disease involving [place] coronary artery of [place] heart without angina pectoris Type 2 diabetes [...] in the last 7068 hours. Invalid input(s): [id number] Recent Labs 06/06/24 0653 06/05/24 2231 06/05/24 1622 06/05/24 1134 06/05/24 0727 06/04/24 1943 06/04/24 1526 06/04/24 1109 06/04/24 0711 06/03/24 2005 06/03/24 1748 06/03/24 1114 POCGLU 187 238* 205* 211* 166 175 154 188 182 136 191 166 Heme No results for input(s): LDH, HAPTOGLOBIN, URICACID in the last 168 hours. ABG (Arterial Blood Gas) No results found for: PHART, PO2ART, WZT2TGU, LRV8NZU Microbiology: Microbiology Results (Last 30 days) No results found for the last 720 hours. Imaging: Results for orders placed or performed during the hospital encounter of 06/02/24 XR Chest One View (Exam End: 06/03/2024 2:41 AM) Result Value WORKSTATION ID [id number] Impression No radiographically evident acute cardiopulmonary process. Thank you for letting us participate in the care of this patient. If you are a health care provider and have any questions regarding this report, please contact the number below. For patients who have questions please contact the health animal caretaker supervisor that requested your imaging first. Electronically signed by: Corazon Mauro MD, [facility] ([phone]), at 06/03/2024 3:[address] Chest wo Contrast (Generic) (Exam End: 06/03/2024 4:33 PM) Result Value WORKSTATION ID [id number] Impression Cardiomegaly. Biventricular ICD leads in place. Thank you for letting us participate in the care of this patient. If you are a health care provider and have any questions regarding this report, please contact the number below. For patients who have questions please contact the health animal caretaker supervisor that requested your imaging first. : Limited echo performed by fellow fashion consultant to assess LV function. Left ventricle [...] Dain Colón MD (PGY-1) Cardiology, M1-S2, Pager #[phone] 06/06/24 Associated attestation - Melida Valdes MD [...] a lytic and brought directly to the Construction Trades Teacher. Cardiac catheterization demonstrated multivessel disease with [...] management. Help appreciated Melida Valdes MD Staff Social Services Aide * Frederick Dunn MD - 06/05/2024 8:13 AM EDT Images from the original note were not included. . Cardiology Progress Note Patient info: Name: George Mehta : 1955 PCP: Mauro Berumen MD PCP phone number: [phone] Date of Admission: 06/02/2024 ( Hospital Day 3 days ) Attending:Melida Valdes MD ID: 69 y.o. male with a h/o DM type 2, HTN, HLD, current smoker (2-3 cigarettes/day), HFrEF with anICD for low EF (~30%), and CAD with prior ND x3 with JENNA placed in [place], Melanoma, PAD, presented to [facility] with 1 hour of retrosternal CP [...] in the last 7068 hours. Invalid input(s): [id number] Recent Labs 06/05/24 1134 06/05/24 0727 06/04/24 1943 06/04/24 1526 06/04/24 1109 06/04/24 0711 06/03/24 2005 06/03/24 1748 06/03/24 1114 06/03/24 0754 06/02/24 2331 POCGLU 211* 166 175 154 188 182 136 191 166 195 156 Heme No results for input(s): LDH, HAPTOGLOBIN, URICACID in the last 168 hours. ABG (Arterial Blood Gas) No results found for: PHART, PO2ART, VOC2KQK, ZQR6XDQ Microbiology: Microbiology Results (Last 30 days) No results found for the last 720 hours. Imaging: Results for orders placed or performed during the hospital encounter of 06/02/24 XR Chest One View (Exam End: 06/03/2024 2:41 AM) Result Value WORKSTATION ID [id number] Impression No radiographically evident acute cardiopulmonary process. Thank you for letting us participate in the care of this patient. If you are a health care provider and have any questions regarding this report, please contact the number below. For patients who have questions please contact the health animal caretaker supervisor that requested your imaging first. Electronically signed by: Corazon Mauro MD, [facility] ([phone]), at 06/03/2024 3:[address] Chest wo Contrast (Generic) (Exam End: 06/03/2024 4:33 PM) Result Value WORKSTATION ID [id number] Impression Cardiomegaly. Biventricular ICD leads in place. Thank you for letting us participate in the care of this patient. If you are a health care provider and have any questions regarding this report, please contact the number below. For patients who have questions please contact the health animal caretaker supervisor that requested your imaging first. Electronically signed by: Stuart Aponte MD, [facility] ([phone]), at 06/03/2024 4:47 PM TTE: Limited echo performed by fellow fashion consultant to assess LV function. Left ventricle [...] all the information they need regarding the PERSONNEL WORKER-D.Plan for MRI tomorrow. Starting 40 mg IV [...] a lytic and brought directly to the Construction Trades Teacher. Cardiac catheterization demonstrated multivessel disease with [...] maintenance of 40. Melida Valdes MD Staff Social Services Aide * Migel Javier RN - 06/05/2024 6:21 AM EDT Implanted device record scanned into: Chart Review-->Media-->External Cardiology-->03/25/2024. Medtronic Amplia MRI Quad CRTD [id number] Serial #: [id number] DDD mode A + Bi/V Rates 50-130 Migel Javier RN * Dain Colón MD - 06/04/2024 11:16 AM EDT Implant Records Requested Type: PERSONNEL WORKER-D Warehouse Loader: Medtronic Product: [id number] Amplia MRI MRI compatibility: Compatible for 1.5-3 T Model #: [id number] Placed at: [place], [place] Records requested for MRI: 1. Operative report 2. Implant log I requested that these records be sent to our MRI department, Dain Colón MD 06/04/24 11:58 AM * Dain Colón MD - 06/04/2024 6:57 AM EDT Images from the original note were not included. . Cardiology Progress Note Patient info: Name: George Mehta : 1955 PCP: Mauro Berumen MD PCP phone number: [phone] Date of Admission: 06/02/2024 ( Hospital Day 2 days ) Attending:Delroy Fofana MD ID: 69 y.o. male with a h/o DM type 2, HTN, HLD, current smoker (2-3 cigarettes/day), HFrEF with anICD for low EF (~30%), and CAD with prior ND x3 with JENNA placed in [place], Melanoma, PAD, presented to [facility] with 1 hour of retrosternal CP [...] in the last 7068 hours. Invalid input(s): [id number] Recent Labs 06/03/24 2005 06/03/24 1748 06/03/24 1114 06/03/24 0754 06/02/24 2331 POCGLU 136 191 166 195 156 Heme No results for input(s): LDH, HAPTOGLOBIN, URICACID in the last 168 hours. ABG (Arterial Blood Gas) No results found for: PHART, PO2ART, PUN2ROZ, ZQN3LMU Microbiology: Microbiology Results (Last 30 days) No results found for the last 720 hours. Imaging: Results for orders placed or performed during the hospital encounter of 06/02/24 XR Chest One View (Exam End: 06/03/2024 2:41 AM) Result Value WORKSTATION ID [id number] Impression No radiographically evident acute cardiopulmonary process. Thank you for letting us participate in the care of this patient. If you are a health care provider and have any questions regarding this report, please contact the number below. For patients who have questions please contact the health animal caretaker supervisor that requested your imaging first. Electronically signed by: Corazon Mauro MD, [facility] ([phone]), at 06/03/2024 3:[address] Chest wo Contrast (Generic) (Exam End: 06/03/2024 4:33 PM) Result Value WORKSTATION ID [id number] Impression Cardiomegaly. Biventricular ICD leads in place. Thank you for letting us participate in the care of this patient. If you are a health care provider and have any questions regarding this report, please contact the number below. For patients who have questions please contact the health animal caretaker supervisor that requested your imaging first. Electronically signed by: Stuart Aponte MD, [facility] ([phone]), at 06/03/2024 4:47 PM TTE: Limited echo performed by fellow fashion consultant to assess LV function. Left ventricle [...] -Lasix 40 mg IV given in the ship laborer; assess diuretic response, consider re-dosing -Continue [...] a lytic and brought directly to the Construction Trades Teacher. Cardiac catheterization demonstrated multivessel disease with [...] Friday -Diuresis with Jovanni Valdes MD Staff Social Services Aide * Fatmata Mcallister, PT - 06/03/2024 3:29 [...] vs PCI) Fatmata Mcallister PT, MSPT Pager [phone] Inpatient Physical Therapy * Marlin Gómez MD [...] Marlin Gómez MD Cardiology S2, Pager # [phone] 06/03/2024 * Delroy Fofana MD - 06/03/2024 7:16 AM EDT Images from the original note were not included. . Cardiology Progress Note Patient info: Name: George Mehta : 1955 PCP: Mauro Berumen MD PCP phone number: [phone] Date of Admission: 06/02/2024 ( Hospital Day 1 day ) Attending:Nuha Rojo MD ID: 69 y.o. male with a h/o DM type 2, HTN, HLD, current smoker (2-3 cigarettes/day), HFrEF with anICD for low EF (~30%), and CAD with prior ND x3 with JENNA placed in [place], Melanoma, PAD, presented to [facility] with 1 hour of retrosternal CP [...] in the last 7068 hours. Invalid input(s): [id number] Recent Labs 06/02/24 2331 POCGLU 156 Heme No results for input(s): LDH, HAPTOGLOBIN, URICACID in the last 168 hours. ABG (Arterial Blood Gas) No results found for: PHART, PO2ART, YIG6VPY, VHY5XZV Microbiology: Microbiology Results (Last 30 days) No results found for the last 720 hours. Imaging: Results for orders placed or performed during the hospital encounter of 06/02/24 XR Chest One View (Exam End: 06/03/2024 2:41 AM) Result Value WORKSTATION ID [id number] Impression No radiographically evident acute cardiopulmonary process. Thank you for letting us participate in the care of this patient. If you are a health care provider and have any questions regarding this report, please contact the number below. For patients who have questions please contact the health animal caretaker supervisor that requested your imaging first. Electronically signed by: Corzaon Mauro MD, [facility] ([phone]), at 06/03/2024 3:06 AM TTE: Limited echo performed by fellow fashion consultant to assess LV function. Left ventricle [...] -Lasix 40 mg IV given in the ship laborer; assess diuretic response, consider re-dosing -Continue [...] @YESSI@ Dain Colón MD (PGY-1) Cardiology M1-S2, #[id number] 06/03/2024, 7:16 AM Cardiology Staff - Progress Note Addendum This patient was seen and examined on morning rounds with the S2 inpatient team. I agree with the findings and plan of care per Dain Colón MD (medical technologist hematology). Please refer to his note above for details. Very pleasant 69 year old male but he is obese, diabetic, and he is a SMOKER with known prior CAD and moderately reduced LVEF (30%). He has a pacer. History of surgical resection of melanoma on his head. The patient was transferred overnight to [facility] as a STEMI. He was treated initially with a lytic (TNK) and brought directly to the ship laborer. The cath demonstrated 3VD with diffuse [...] - 06/13/2024 10:58 AM EST ICU Blue (#[id number]) H&P Patient info: Name: George Mehta : 1955 PCP: Mauro Berumen MD PCP phone number: [phone] Date of Admission: 06/02/2024 ( Hospital Day 11 days ) Attending:Haja Byrnes MD ID: George Mehta is a 69 y.o. male with a h/o DM type 2, HTN, HLD, current smoker (2-3 cigarettes/day), HFrEF with an ICD for low EF (~30%), and CAD with prior ND x3 with JENNA placed in [place], Melanoma, PAD, presented to [facility] with 1 hour of retrosternal CP (05/13) while watching TV, foundto have STEMI. HPI: Shahnaz Scanlon H&P 06/02 69 y.o. male with a h/o DM type 2, HTN, HLD, current smoker (2-3 cigarettes/day), HFrEF with an ICD for low EF (~30%), and CAD with prior ND x3 with JENNA placed in [place], Melanoma, PAD, presented to [facility] with 1 hour of retrosternal CP (05/13) while watching TV. CP was non-radiating, not asso ciated with diaphoresis, nausea, or SOB. Denies orthopnea, MARTÍNEZ, palpitations, or LE edema. ECG showed findings consistent with anterior STEMI. He received TNK and was transferred for PCI. Coronary angiography showed a small, non-dominant RCA with wqit-zi-woqtpawk disease and a dominant,heavily calcified left system with prior stents in the LAD and OM. The LM bifurcates into the LAD and LCX, both heavily calcified. The proximal LCX has a 75% calcified, aneurysmal lesion, and an 80% calcified lesion distally before a large OM2. OM1 is a CANDY DIPPER with in-stent restenosis, filling retrograde via collaterals. [...] 40 mg Lasix was administered in the ship laborer. Cardiac surgery was consulted and plan [...] Blood Gas) No results for input(s): PHART, PVG5OGB, PO2ART, OVK3KDF, LACTATEVEN, HSH9RIQ, PFRATIOART2 in the last 168 hours. VBG (Venous Blood Gas) Recent Labs 06/10/24 1742 PHVEN 7.34 PO2VEN 24 MBH3TDK 27.4 Mixed Venous Sat No results for input(s): P4JCGJ5 in the last 168 hours. Intake/Output Summary [...] in the last 7068 hours. Invalid input(s): ONZEABYTLWW2L Recent Labs 06/13/24 0741 06/13/24 0325 06/12/24 2353 06/12/24 1932 06/12/24 1541 06/12/24 1121 06/12/24 0800 06/12/24 0425 06/11/24 2356 06/11/24 2025 06/11/24 1624 06/11/24 1108 POCGLU 126 99 141 158 113 207* 169 132 135 210* 81 233* Heme No results for input(s): LDH, HAPTOGLOBIN, URICACID in the last 168 hours. ABG (Arterial Blood Gas) No results for input(s): PHART, QVL1MTG, PO2ART, ILF9BHX, LACTATEVEN, YGA4WSU, PFRATIOART2 in the last 168 hours. VBG (Venous Blood Gas) Recent Labs 06/10/24 1742 PHVEN 7.34 PO2VEN 24 QQH1XGI 27.4 Mixed Venous Sat No results for input(s): F3IDCG2 in the last 168 hours. Microbiology: Microbiology [...] (Give Meds) Daily Healthy Menu Choices/Cardiac diet ([facility]-Diet) DVT Prophylaxis: SCD GI Prophylaxis: None Dispo: [...] is in the chart Rebeca Prado MD Billing Supervisor PGY6 [phone] * Shahnza Scanlon MD - 06/02/2024 10:38 PM EDT [...] placed in [place], Melanoma, PAD, presented to [facility] with 1 hour of retrosternal CP (10/10) while watching TV. CP was non-radiating, not assoc iated with diaphoresis, nausea, or SOB. Denies orthopnea, MARTÍNEZ, palpitations, or LE edema. ECG showed findings consistent with anterior STEMI. He received TNK and was transferred for PCI. Coronary angiography showed a small, non-dominant RCA with dqbr-lb-zceklcne disease and a dominant,heavily calcified left system with prior stents in the LAD and OM. The LM bifurcates into the LAD and LCX, both heavily calcified. The proximal LCX has a 75% calcified, aneurysmal lesion, and an 80% calcified lesion distally before a large OM2. OM1 is a CANDY DIPPER with in-stent restenosis, filling retrograde via collaterals. [...] 40 mg Lasix was administered in the ship laborer. Past Medical History: As per HPI [...] Affect: Mood normal. Behavior: Behavior normal. Diagnostics: [facility] 06/02/2024 Coronary angiography revealed small non dominant [...] -Lasix 40 mg IV given in the ship laborer; assess diuretic response. -Continue carvedilol; hold [...] & Follow-up Care: Contact information for follow-up [facility] [address] [facility] [address] Cardiac Rehab, [address] [address] JAMIE GRAAMJO confirmed with [facility] that they will see [...] MEDICARE Payor: AAR MANAGED MEDICARE / Plan: [facility] MANAGED MEDICARE COMPLETE / Product Type: *No [...] Roberts RN - 06/18/2024 10:50 AM EST [facility] George Mehta was seen today regarding participation in the outpatient Phase 2 Cardiac Rehabilitation at [facility]. The patient agrees to a referral [...] Group Needs: Homecare agency Agency Choices: [facility] Home Health Services: Medication checks, Registered Nurse, Physical Therapy Agency Referrals: pending clinical course and PT/OT recs [facility] [address] [place] [address] PHONE: [phone] FAX: [phone] Transportation: family or friend will provide Barriers [...] MEDICARE / Plan: AARP [facility] MANAGED MEDICARE COMPLETE / Product Type: *No Product type* / Secondary Insurance: N/A Plan for discharge is: Home w/ Services Outpatient Agency/Support Group Needs: Homecare agency Agency Choices: [place] [facility]: Medication checks, Registered Nurse, Physical Therapy Agency Referrals: pending clinical course and PT/OT recs [facility] [address] [place] [address] PHONE: [phone] FAX: [phone] Transportation: family or friend will provide Barriers [...] Loja MD - 06/14/2024 8:48 AM EST [facility] Operative Note Patient Name: George Mehta : [id number] MR#: [id number] Case Date: 06/14/2024 Surgeon: Surgeons and Role: * Bobby Loja MD - Primary * Rashi Bass PA - Physician Silk Screen Painter Preoperative diagnosis: CAD, MARIALUISA flickering mass on [...] [place] SURGICAL PATHOLOGY Bobby Loja MD 06/14/2024 0949 3 : Tissue Heart, Atrial Appendage, Left [...] draped in the normal sterile fashion. A KRAEN revealed an EF of 25% and a [...] today and tomorrow. Report called to [facility] - all belongings with patient. PLAN MOVING FORWARD: maintenance shop laborer and transfer to [facility]. INDIVIDUALIZED FALL [...] MEDICARE Payor: AAR MANAGED MEDICARE / Plan: [facility] MANAGED MEDICARE COMPLETE / Product Type: *No Product type* / Secondary Insurance: N/A Plan for discharge is: Home w/ Services Outpatient Agency/Support Group Needs: Homecare agency, Agency Choices: [facility] Home Health Services: Medication checks, Registered Nurse, Physical Therapy Agency Referrals: [facility] [place] [phone] RN / PT Routed 06/10 Transportation: family [...] with home health services when medically ready. fructose loader/Styrene Dehydration Reactor Operator will continue to follow patient???s progress and remain available if situation changes for coordination of care, psychosocial support and/or discharge planning. Anticipated Date of Discharge: 06/18/2024 Mariia Montero RN CM Extension [phone] * Plan of Care - Migel Javier [...] No Patient is insured through: Primary Insurance: [employer] MANAGED MEDICARE Payor: AARP MANAGED MEDICARE / Plan: [employer] MANAGED MEDICARE COMPLETE / Product Type: *No [...] consult for high risk PCI vs CABG fructose loader/Styrene Dehydration Reactor Operator will continue to follow patient???s progress and remain available if situation changes for coordination of care, psychosocial support and/or discharge planning. Anticipated Date of Discharge: 06/11/2024 Mariia Montero RN Extension [phone] * Plan of Care - Becca Hope [...] Appropriate) * Consult Note - Alejandra Baumann, BREAST SURGEON - 06/06/2024 12:24 PM EST Diabetes Management [...] to provide a review of termite control service representative diabetes care. Diabetes History: George Mehta has [...] Breakfast- varies - eggs with khoury or albanian muffin Lunch- turkey sandwich Supper- meat and [...] Infusions: heparin (porcine) infusion 1,400 Units/hr (06/06/24 6176) PRN: insulin lispro, potassium chloride ER OR [...] Baumann APRN Endocrinology Diabetes Management Service Pager: [phone] Weekends please page [phone] 80 minute visit was spent in counseling [...] remote melanoma, and smoker who presented to [facility] last night via EMS after developing acute, severe chest pain while watching TV. Patient was ruled in for STEMI, given TNK, ASA, plavix, heparin gtt, and sent to [facility] for coronary angiography. LHC demonstrated severely calcified left coronary system with notable LCx 75/80% lesions and CANDY DIPPER OM1 with ISR with collateral retrograde filling, [...] is large. OM1 appears to be a CANDY DIPPER, with in stentrestenosis and fills retrograde via [...] y.o. male admitted with STEMI s/p TNK, [facility] showing multivessel CAD including ISR, no culprit [...] to our service. Signed: Paula Treviño PA-C [facility] Section of Cardiac Surgery Date: 06/03/2024 * Initial Assessments - Catina Estrada MSW - 06/03/2024 10:32 AM EDT Office of Care Management Initial Assessment CHINA Humphrey reviewed record and discussed patient with Care Team. Source of Information: Team, bedside nurse, medical record, and Patient CHINA Introduced self/reviewed role; services accepted. Admitted From: Transfer from another hospital Location: [facility] Reason for Hospitalization: Chest Pain while watching TV, doctors said I had a heart attack Past medical History: No past medical history on file. Hospitalizations Within the Past 30 Days: no previous admission in last 30 days Current Decision-Making Capacity: Self If AD's have not been completed the following surrogate would be surrogate decision maker per [place] surrogate decision making law. (Only good for 180 days) Any patient receiving care in [place] must abide by [place] law. The hierarchy for surrogate decision making [...] (i) The agent with financial power of managing attorney or a conservator appointed in accordance [...] in the bathroom) Home Address confirmed as: [address] [place] [address] [address] [facility] [address] Social & Family Supports: All names listed [...] Pertinent/Service Specific Information: Health/Prescription Coverage: Primary Insurance: [facility] MANAGED MEDICARE Payor: [facility] MANAGED MEDICARE / Plan: [facility] MANAGED MEDICARE COMPLETE / Product Type: *No Product type* / Secondary Insurance: N/A ; Prescription Coverage: Yes Preferred Pharmacy: [id number] - [place], [place] - [address] [place] [address] [place] [id number] [place] Status: Patient is a : No Primary Care Provider confirmed: Mauro Berumen MD [phone] Patient/Caregiver Goals of Treatment: Potential Needs for [...] care as indicated. CHINA Min Cardiology, [phone]. [phone] * Brief Op Note - Angeles Gaxiola PA - 06/03/2024 12:23 AM EDT Preliminary Cardiac Catheterization Procedure Note: Patient Name: George Mehta : [id number] MR#: [id number] Case Date: 06/02/2024 - 06/03/2024 Retail Seasonal Specialist: Surgeons and Role: * Nuha Shen MD - Primary * Angeles Gaxiola PA - Physician Silk Screen Painter Preoperative diagnosis: STEMI Postoperative diagnosis: * STEMI * Procedure(s) performed: RRA access [facility] Coronary angiogram IVUS LM/LAD/LCX Access: 6 Fr RRA A time-out was conducted prior to the start of the procedure to verify the correct patient and procedure, procedure location, and all relevant critical information. Preliminary findings: 69 year old current smoker (1-2 cigarette's per day), DM type 2, hypertension, dyslipidemia, ICD for HFrEF/low EF (~30%), CAD with prior ND and 3 stents historically (in [place]) who presented to [facility] with 1 hour of rest chest [...] is large. OM1 appears to be a CANDY DIPPER, with in stentrestenosis and fills retrograde via [...] receive 40 mg of lasix in the ship laborer. Recommendations: surgical consult for possible open [...] 2:00 PM EST Office Visit Cardiology at [address] [address] Moi Falcon MD [facility] [place] [address] Scheduled Orders Name Type Priority Associated Diagnoses [...] 7:20 AM EST Coronary artery disease involving [place] coronary artery of [place] heart without angina pectoris POC, GLUCOSE Routine [...] - 199 mg/dL 06/21/2024 3:51 AM EST [facility] Comment:Supplemental ranges: <140 mg/dL before meals <180 mg/dL all other times of the day. Blood CAPILLARY BLOOD / Unknown 06/21/2024 3:51 AM EST 06/21/2024 3:51 AM EST Bobby Loja MD POINT OF CARE TEST O RDERABLES [facility] [place] [address] * (ABNORMAL) Basic Metabolic Panel (06/21/2024 2:09 [...] APRN CHEMISTRY ORDERABL ES Performing Organization Address [facility] Co de Phone Number [facility] [place] [address] * POC, GLUCOSE (06/21/2024 12:04 AM EST) Glucometer, POC 157 65 - 199 mg/dL 06/21/2024 12:04 AM EST [facility] Comment:Supplemental ranges: <140 mg/dL before meals <180 mg/dL all other times of the day. Blood CAPILLARY BLOOD / Unknown 06/21/2024 12:04 AM EST 06/21/2024 12:04 AM EST Bobby Loja MD POINT OF CARE TEST O NIKA Performing Organization Address [facility] Co de Phone Number [facility] [place] [address] * POC, GLUCOSE (06/20/2024 11:14 PM EST) Glucometer, POC 67 65 - 199 mg/dL 06/20/2024 11:14 PM EST [facility] Comment:Supplemental ranges: <140 mg/dL before meals <180 mg/dL all other times of the day. Blood CAPILLARY BLOOD / Unknown 06/20/2024 11:14 PM EST 06/20/2024 11:14 PM EST Bobby Loja MD POINT OF CARE TEST O NIKA Performing Organization Address City/[facility]/ZIP Co de Phone Number [facility] [place] [address] * POC, GLUCOSE (06/20/2024 7:16 PM EST) Glucometer, POC 132 65 - 199 mg/dL 06/20/2024 7:16 PM EST [facility] Comment:Supplemental ranges: <140 mg/dL before meals <180 mg/dL all other times of the day. Blood CAPILLARY BLOOD / Unknown 06/20/2024 7:16 PM EST 06/20/2024 7:16 PM EST Bobby Loja MD POINT OF CARE TEST O RDBECKIE Performing Organization Address City/[facility]/ZIP Co de Phone Number [facility] [place] [address] * POC, GLUCOSE (06/20/2024 3:39 PM EST) Glucometer, POC 124 65 - 199 mg/dL 06/20/2024 3:40 PM EST [facility] Comment:Supplemental ranges: <140 mg/dL before meals <180 mg/dL all other times of the day. Blood CAPILLARY BLOOD / Unknown 06/20/2024 3:39 PM EST 06/20/2024 3:40 PM EST Bobby Loja MD POINT OF CARE TEST O NIKA Performing Organization Address [facility] Co de Phone Number [facility] [place] [address] * POC, GLUCOSE (06/20/2024 12:02 PM EST) Glucometer, POC 173 65 - 199 mg/dL 06/20/2024 12:03 PM EST [facility] Comment:Supplemental ranges: <140 mg/dL before meals <180 mg/dL all other times of the day. Blood CAPILLARY BLOOD / Unknown 06/20/2024 12:02 PM EST 06/20/2024 12:03 PM EST Bobby Loja MD POINT OF CARE TEST O NIKA Performing Organization Address City/[facility]/ZIP Co de Phone Number [facility] [place] [address] * POC, GLUCOSE (06/20/2024 7:10 AM EST) Glucometer, POC 130 65 - 199 mg/dL 06/20/2024 7:11 AM EST [facility] Comment:Supplemental ranges: <140 mg/dL before meals <180 mg/dL all other times of the day. Blood CAPILLARY BLOOD / Unknown 06/20/2024 7:10 AM EST 06/20/2024 7:11 AM EST Bobby Loja MD POINT OF CARE TEST O RDERABLES [facility] [place] [address] * (ABNORMAL) Basic Metabolic Panel (06/20/2024 2:28 [...] 56 mL/min/1. 73 m?? 06/20/2024 3:06 AM [facility] [...] City/[facility]/ZIP Co de Phone Number [facility] [place] [address] * POC, GLUCOSE (06/20/2024 12:32 AM EST) Glucometer, POC 86 65 - 199 mg/dL 06/20/2024 12:32 AM EST [facility] Comment:Supplemental ranges: <140 mg/dL before meals <180 mg/dL all other times of the day. Blood CAPILLARY BLOOD / Unknown 06/20/2024 12:32 AM EST 06/20/2024 12:32 AM EST Bobby Loja MD POINT OF CARE TEST O NIKA Performing Organization Address City/[facility]/ZIP Co de Phone Number [facility] [place] [address] * (ABNORMAL) POC, GLUCOSE (06/20/2024 12:02 AM EST) Glucometer, POC 59(L) 65 - 199 mg/dL 06/20/2024 12:02 AM EST [facility] Comment:Supplemental ranges: <140 mg/dL before meals <180 mg/dL all other times of the day. Blood CAPILLARY BLOOD / Unknown 06/20/2024 12:02 AM EST 06/20/2024 12:03 AM EST Bobby Loja MD POINT OF CARE TEST O RDERABLES Performing Organization Address [facility] Co de Phone Number [facility] [place] [address] * POC, GLUCOSE (06/19/2024 8:15 PM EST) Glucometer, POC 131 65 - 199 mg/dL 06/19/2024 8:15 PM EST [facility] Comment:Supplemental ranges: <140 mg/dL before meals <180 mg/dL all other times of the day. Blood CAPILLARY BLOOD / Unknown 06/19/2024 8:15 PM EST 06/19/2024 8:15 PM EST Bboby Loja MD POINT OF CARE TEST O NIKA Performing Organization Address [facility] Co de Phone Number [facility] [place] [address] * POC, GLUCOSE (06/19/2024 6:01 PM EST) Glucometer, POC 129 65 - 199 mg/dL 06/19/2024 6:01 PM EST [facility] Comment:Supplemental ranges: <140 mg/dL before meals <180 mg/dL all other times of the day. Blood CAPILLARY BLOOD / Unknown 06/19/2024 6:01 PM EST 06/19/2024 6:02 PM EST Bobby Loja MD POINT OF CARE TEST O RDERAPIETER Performing Organization Address City/[facility] Co de Phone Number [facility] [place] [address] * POC, GLUCOSE (06/19/2024 4:51 PM EST) Glucometer, POC 155 65 - 199 mg/dL 06/19/2024 4:51 PM EST [facility] Comment:Supplemental ranges: <140 mg/dL before meals <180 mg/dL all other times of the day. Blood CAPILLARY BLOOD / Unknown 06/19/2024 4:51 PM EST 06/19/2024 4:51 PM EST Bobby Loja MD POINT OF CARE TEST O RDERAPIETER Performing Organization Address City/[facility] Co de Phone Number [facility] [place] [address] * POC, GLUCOSE (06/19/2024 12:37 PM EST) Glucometer, POC 136 65 - 199 mg/dL 06/19/2024 12:37 PM EST [facility] Comment:Supplemental ranges: <140 mg/dL before meals <180 mg/dL all other times of the day. Blood CAPILLARY BLOOD / Unknown 06/19/2024 12:37 PM EST 06/19/2024 12:37 PM EST Bobby Loja MD POINT OF CARE TEST O NIKA Performing Organization Address [facility] Co de Phone Number [facility] [place] [address] * POC, GLUCOSE (06/19/2024 11:20 AM EST) Glucometer, POC 185 65 - 199 mg/dL 06/19/2024 11:21 AM EST [facility] Comment:Supplemental ranges: <140 mg/dL before meals <180 mg/dL all other times of the day. Blood CAPILLARY BLOOD / Unknown 06/19/2024 11:20 AM EST 06/19/2024 11:21 AM EST Bobby Loja MD POINT OF CARE TEST O RALPHERAPIETER Performing Organization Address City/[facility]/ZIP Co de Phone Number [facility] [place] [address] * POC, GLUCOSE (06/19/2024 7:21 AM EST) Glucometer, POC 125 65 - 199 mg/dL 06/19/2024 7:21 AM EST [facility] Comment:Supplemental ranges: <140 mg/dL before meals <180 mg/dL all other times of the day. Blood CAPILLARY BLOOD / Unknown 06/19/2024 7:21 AM EST 06/19/2024 7:22 AM EST Bobby Loja MD POINT OF CARE TEST O NIKA Performing Organization Address [facility] Co de Phone Number [facility] [place] [address] * POC, GLUCOSE (06/19/2024 4:52 AM EST) Glucometer, POC 125 65 - 199 mg/dL 06/19/2024 4:52 AM EST [facility] Comment:Supplemental ranges: <140 mg/dL before meals <180 mg/dL all other times of the day. Blood CAPILLARY BLOOD / Unknown 06/19/2024 4:52 AM EST 06/19/2024 4:52 AM EST Bobby Loja MD POINT OF CARE TEST O NIKA Performing Organization Address [facility] Co de Phone Number [facility] [place] [address] * POC, GLUCOSE (06/19/2024 4:13 AM EST) Glucometer, POC 67 65 - 199 mg/dL 06/19/2024 4:13 AM EST [facility] Comment:Supplemental ranges: <140 mg/dL before meals <180 mg/dL all other times of the day. Blood CAPILLARY BLOOD / Unknown 06/19/2024 4:13 AM EST 06/19/2024 4:13 AM EST Narrative Authorizing Provider Result Saranya Loja MD POINT OF CARE TEST O NIKA Performing Organization Address [facility] Co de Phone Number [facility] [place] [address] * (ABNORMAL) POC, GLUCOSE (06/19/2024 3:48 AM EST) Glucometer, POC 51(LLL) 65 - 199 mg/dL 06/19/2024 3:48 AM [facility] Comment:Supplemental ranges: <140 mg/dL before meals <180 mg/dL all other times of the day. Blood CAPILLARY BLOOD / Unknown 06/19/2024 3:48 AM EST 06/19/2024 3:48 AM EST Bobby Loja MD POINT OF CARE TEST O RDERABLES [facility] [place] [address] * (ABNORMAL) Basic Metabolic Panel (06/19/2024 3:44 AM EST) Glucose 53(LLL) 65 - 199 mg/dL 06/19/2024 4:48 AM [facility] [...] 8.5 - 10.5 mg/dL 06/19/2024 4:48 AM [facility] [...] APRN CHEMISTRY ORDERABL ES Performing Organization Address [facility] Co de Phone Number [facility] [place] [address] * POC, GLUCOSE (06/19/2024 12:23 AM EST) Glucometer, POC 82 65 - 199 mg/dL 06/19/2024 12:23 AM EST [facility] Comment:Supplemental ranges: <140 mg/dL before meals <180 mg/dL all other times of the day. Blood CAPILLARY BLOOD / Unknown 06/19/2024 12:23 AM EST 06/19/2024 12:23 AM EST Bobby Loja MD POINT OF CARE TEST O RDERABLES [facility] [place] [address] * POC, GLUCOSE (06/18/2024 11:08 PM EST) Glucometer, POC 73 65 - 199 mg/dL 06/18/2024 11:08 PM EST [facility] Comment:Supplemental ranges: <140 mg/dL before meals <180 mg/dL all other times of the day. Blood CAPILLARY BLOOD / Unknown 06/18/2024 11:08 PM EST 06/18/2024 11:08 PM EST Bobby Loja MD POINT OF CARE TEST O RDBECKIE Performing Organization Address [facility]/ZIP Co de Phone Number [facility] [place] [address] * POC, GLUCOSE (06/18/2024 7:32 PM EST) Glucometer, POC 167 65 - 199 mg/dL 06/18/2024 7:32 PM EST [facility] Comment:Supplemental ranges: <140 mg/dL before meals <180 mg/dL all other times of the day. Blood CAPILLARY BLOOD / Unknown 06/18/2024 7:32 PM EST 06/18/2024 7:32 PM EST Bobby Loja MD POINT OF CARE TEST O NIKA Performing Organization Address [facility] Co de Phone Number [facility] [place] [address] * POC, GLUCOSE (06/18/2024 6:08 PM EST) Glucometer, POC 140 65 - 199 mg/dL 06/18/2024 6:09 PM EST [facility] Comment:Supplemental ranges: <140 mg/dL before meals <180 mg/dL all other times of the day. Blood CAPILLARY BLOOD / Unknown 06/18/2024 6:08 PM EST 06/18/2024 6:09 PM EST Bobby Loja MD POINT OF CARE TEST O NIKA Performing Organization Address City/[facility]/ZIP Co de Phone Number [facility] [place] [address] * POC, GLUCOSE (06/18/2024 4:17 PM EST) Glucometer, POC 144 65 - 199 mg/dL 06/18/2024 4:17 PM EST [facility] Comment:Supplemental ranges: <140 mg/dL before meals <180 mg/dL all other times of the day. Blood CAPILLARY BLOOD / Unknown 06/18/2024 4:17 PM EST 06/18/2024 4:17 PM EST Narrative Authorizing Provider Result Saranya Loja MD POINT OF CARE TEST O NIKA Performing Organization Address [facility] Co de Phone Number [facility] [place] [address] * POC, GLUCOSE (06/18/2024 12:09 PM EST) Glucometer, POC 180 65 - 199 mg/dL 06/18/2024 12:09 PM EST [facility] Comment:Supplemental ranges: <140 mg/dL before meals <180 mg/dL all other times of the day. Blood CAPILLARY BLOOD / Unknown 06/18/2024 12:09 PM EST 06/18/2024 12:09 PM EST Narrative Authorizing Provider Result Saranya Loja MD POINT OF CARE TEST Abimael MAHER Performing Organization Address [facility] Co de Phone Number [facility] [place] [address] * POC, GLUCOSE (06/18/2024 7:49 AM EST) Glucometer, POC 125 65 - 199 mg/dL 06/18/2024 7:50 AM EST [facility] Comment:Supplemental ranges: <140 mg/dL before meals <180 mg/dL all other times of the day. Blood CAPILLARY BLOOD / Unknown 06/18/2024 7:49 AM EST 06/18/2024 7:50 AM EST Narrative Authorizing Provider Result Saranya Loja MD POINT OF CARE TEST Abimael MAHER Performing Organization Address [facility] Co de Phone Number [facility] [place] [address] * (ABNORMAL) Basic Metabolic Panel (06/18/2024 4:19 AM EST) Glucose 103 65 - 199 mg/dL 06/18/2024 5:03 AM EST [facility] Comment:Glucose Concentratio n >=200 [...] ORDERABL ES Performing Organization Address City/[facility] Co de Phone Number [facility] [place] [address] * POC, GLUCOSE (06/18/2024 3:50 AM EST) Glucometer, POC 99 65 - 199 mg/dL 06/18/2024 3:51 AM EST [facility] Comment:Supplemental ranges: <140 mg/dL before meals <180 mg/dL all other times of the day. Blood CAPILLARY BLOOD / Unknown 06/18/2024 3:50 AM EST 06/18/2024 3:51 AM EST Bobby Loja MD POINT OF CARE TEST O NIKA Performing Organization Address [facility] Co de Phone Number [facility] [place] [address] * POC, GLUCOSE (06/17/2024 11:10 PM EST) Glucometer, POC 92 65 - 199 mg/dL 06/17/2024 11:10 PM EST [facility] Comment:Supplemental ranges: <140 mg/dL before meals <180 mg/dL all other times of the day. Blood CAPILLARY BLOOD / Unknown 06/17/2024 11:10 PM EST 06/17/2024 11:10 PM EST Bobby Loja MD POINT OF CARE TEST O NIKA Performing Organization Address [facility] Co de Phone Number [facility] [place] [address] * POC, GLUCOSE (06/17/2024 7:54 PM EST) Glucometer, POC 126 65 - 199 mg/dL 06/17/2024 7:54 PM EST [facility] Comment:Supplemental ranges: <140 mg/dL before meals <180 mg/dL all other times of the day. Blood CAPILLARY BLOOD / Unknown 06/17/2024 7:54 PM EST 06/17/2024 7:54 PM EST Bobby Loja MD POINT OF CARE TEST O RDERAPIETER Performing Organization Address [facility] de Phone Number [facility] [place] [address] * POC, GLUCOSE (06/17/2024 4:07 PM EST) Glucometer, POC 141 65 - 199 mg/dL 06/17/2024 4:12 PM EST [facility] Comment:Supplemental ranges: <140 mg/dL before meals <180 mg/dL all other times of the day. Blood CAPILLARY BLOOD / Unknown 06/17/2024 4:07 PM EST 06/17/2024 4:12 PM EST Bobby Loja MD POINT OF CARE TEST O RALPHERAPIETER Performing Organization Address [facility] de Phone Number [facility] [place] [address] * XR Chest PA & Lateral (Generic) (06/17/2024 1:46 PM EST) WORKSTATION ID [id number] DH RAD Anatomical Region Laterality Modality Chest [...] who have questions please contact the health animal caretaker supervisor that requested your imaging first. ? Electronically signed by: Josselyn Bebe, MD, [facility] ([phone]), at 06/17/2024 4:49 PM Narrative 06/17/2024 4:49 [...] patients who have questions please contactthe health animal caretaker supervisor that requested your imaging first. Electronically signed by: Josselyn Spence MD, [facility]([phone]), at 06/17/2024 4:49 PM Keila Hanley APRN IMG DX ORDERABLES * (ABNORMAL) POC, GLUCOSE (06/17/2024 11:04 AM EST) [facility] Glucometer, POC 245(H) 65 - 199 mg/dL 06/17/2024 11:04 AM EST [facility] Comment:Supplemental ranges: <140 mg/dL before meals <180 mg/dL all other times of the day. Blood CAPILLARY BLOOD / Unknown 06/17/2024 11:04 AM EST 06/17/2024 11:04 AM EST Bobby Loja MD POINT OF CARE TEST O NIKA Performing Organization Address City/[facility] Co de Phone Number [facility] [place] [address] * POC, GLUCOSE (06/17/2024 7:49 AM EST) Glucometer, POC 141 65 - 199 mg/dL 06/17/2024 7:55 AM EST [facility] Comment:Supplemental ranges: <140 mg/dL before meals <180 mg/dL all other times of the day. Blood CAPILLARY BLOOD / Unknown 06/17/2024 7:49 AM EST 06/17/2024 7:55 AM EST Bobby Loja MD POINT OF CARE TEST Abimael MAHER Performing Organization Address [facility] Co de Phone Number [facility] [place] [address] * POC, GLUCOSE (06/17/2024 4:16 AM EST) Glucometer, POC 139 65 - 199 mg/dL 06/17/2024 4:16 AM EST [facility] Comment:Supplemental ranges: <140 mg/dL before meals <180 mg/dL all other times of the day. Blood CAPILLARY BLOOD / Unknown 06/17/2024 4:16 AM EST 06/17/2024 4:17 AM EST Narrative Authorizing Provider Result Saranya Loja MD POINT OF CARE TEST O NIKA Performing Organization Address City/[facility] Co de Phone Number [facility] [place] [address] * Lactate, Whole Blood (06/17/2024 2:39 AM EST) Lactate, Whole Blood 1.3 0.5 - 2.2 mmol/L 06/17/2024 2:46 AM EST [facility] Blood VENOUS BLOOD SPECIMEN / Unknown Venipuncture / Unknown 06/17/2024 2:39 AM EST 06/17/2024 2:43 AM EST Bobby Loja MD CHEMISTRY ORDERABLES [facility] [place] [address] * (ABNORMAL) Hemogram (06/17/2024 2:39 AM EST) [...] EST Bobby Loja MD HEMATOLOGY ORDERABLE S [facility] [place] [id number] * (ABNORMAL) Basic Metabolic Panel (06/17/2024 2:39 [...] - 15 mMol/L 06/17/2024 3:14 AM EST [facility] Calcium 8.8 8.5 - 10.5 mg/dL 06/17/2024 3:14 AM EST [facility] Est Glomerular Filtration Rate - Male 50 mL/min/1. 73 m?? 06/17/2024 3:14 AM EST [facility] Comment: This patient's estimated GFR [...] CHEMISTRY ORDERABLES Performing Organization Address [facility]/ZIP Co de Phone Number [facility] [place] [address] * (ABNORMAL) POC, GLUCOSE (06/17/2024 12:13 AM EST) [facility] Glucometer, POC 211(H) 65 - 199 mg/dL 06/17/2024 12:13 AM EST [facility] Comment:Supplemental ranges: <140 mg/dL before meals <180 mg/dL all other times of the day. Blood CAPILLARY BLOOD / Unknown 06/17/2024 12:13 AM EST 06/17/2024 12:14 AM EST Bobby Loja MD POINT OF CARE TEST O RDERABLES Performing Organization Address City/[facility]/ZIP Co de Phone Number [facility] [place] [address] * (ABNORMAL) POC, GLUCOSE (06/16/2024 7:22 PM EST) Glucometer, POC 229(H) 65 - 199 mg/dL 06/16/2024 7:22 PM EST [facility] Comment:Supplemental ranges: <140 mg/dL before meals <180 mg/dL all other times of the day. Blood CAPILLARY BLOOD / Unknown 06/16/2024 7:22 PM EST 06/16/2024 7:22 PM EST Bobby Loja MD POINT OF CARE TEST O RDERABLES [facility] [place] [address] * (ABNORMAL) POC, GLUCOSE (06/16/2024 6:14 PM EST) Glucometer, POC 220(H) 65 - 199 mg/dL 06/16/2024 6:14 PM EST [facility] Comment:Supplemental ranges: <140 mg/dL before meals <180 mg/dL all other times of the day. Blood CAPILLARY BLOOD / Unknown 06/16/2024 6:14 PM EST 06/16/2024 6:14 PM EST Narrative Authorizing Provider Result Saranya Loja MD POINT OF CARE TEST O RDERABLES Performing Organization Address City/[facility]/ZIP Co de Phone Number [facility] [place] [address] * Lactate, Whole Blood (06/16/2024 6:14 PM EST) Lactate, Whole Blood 1.8 0.5 - 2.2 mmol/L 06/16/2024 6:27 PM EST [facility] Blood VENOUS BLOOD SPECIMEN / Unknown Venipuncture / Unknown 06/16/2024 6:14 PM EST 06/16/2024 6:25 PM EST Narrative Authorizing Provider Result Saranya Loja MD CHEMISTRY ORDERABLES [facility] [place] [address] * (ABNORMAL) POC, GLUCOSE (06/16/2024 4:14 PM EST) Glucometer, POC 240(H) 65 - 199 mg/dL 06/16/2024 4:14 PM EST [facility] Comment:Supplemental ranges: <140 mg/dL before meals <180 mg/dL all other times of the day. Blood CAPILLARY BLOOD / Unknown 06/16/2024 4:14 PM EST 06/16/2024 4:14 PM EST Bobby Loja MD POINT OF CARE TEST O NIKA Performing Organization Address City/[facility]/ZIP Co de Phone Number [facility] [place] [address] * POC, GLUCOSE (06/16/2024 11:49 AM EST) Glucometer, POC 199 65 - 199 mg/dL 06/16/2024 11:49 AM EST [facility] Comment:Supplemental ranges: <140 mg/dL before meals <180 mg/dL all other times of the day. Blood CAPILLARY BLOOD / Unknown 06/16/2024 11:49 AM EST 06/16/2024 11:49 AM EST Bobby Loja MD POINT OF CARE TEST O NIKA Performing Organization Address City/[facility]/ZIP Co de Phone Number [facility] [place] [address] * (ABNORMAL) Hemogram (06/16/2024 11:44 AM EST) White Blood Cell 17.91(H) 4.00 - 9.50 x10(3)/mc L 06/16/2024 12:25 PM EST [facility] Red Blood Cell 3.47(L) 4.58 - 5.54 x10(6)/mc L 06/16/2024 12:25 PM EST [facility] Hemoglobin 10.5(L) 13.7 - 16.5 [...] EST Bobby Loja MD HEMATOLOGY ORDERABLE S [facility] [place] [address] * Lactate, Whole Blood (06/16/2024 9:02 AM EST) Lactate, Whole Blood 1.8 0.5 - 2.2 mmol/L 06/16/2024 9:19 AM EST [facility] Blood VENOUS BLOOD SPECIMEN / Unknown Venipuncture / Unknown 06/16/2024 9:02 AM EST 06/16/2024 9:17 AM EST Bobby Loja MD CHEMISTRY ORDERABLES [facility] [place] [address] * POC, GLUCOSE (06/16/2024 7:44 AM EST) Glucometer, POC 129 65 - 199 mg/dL 06/16/2024 7:44 AM EST [facility] Comment:Supplemental ranges: <140 mg/dL before meals <180 mg/dL all other times of the day. Blood CAPILLARY BLOOD / Unknown 06/16/2024 7:44 AM EST 06/16/2024 7:44 AM EST Bobby Loja MD POINT OF CARE TEST O RDERABLES Performing Organization Address City/[facility]/ZIP Co de Phone Number [facility] [place] [address] * POC, GLUCOSE (06/16/2024 4:01 AM EST) Glucometer, POC 158 65 - 199 mg/dL 06/16/2024 4:01 AM EST [facility] Comment:Supplemental ranges: <140 mg/dL before meals <180 mg/dL all other times of the day. Blood CAPILLARY BLOOD / Unknown 06/16/2024 4:01 AM EST 06/16/2024 4:01 AM EST Narrative Authorizing Provider Result Saranya Loja MD POINT OF CARE TEST O RDERABLES [facility] [place] [address] * (ABNORMAL) Basic Metabolic Panel (06/16/2024 2:23 [...] CHEMISTRY ORDERABLES Performing Organization Address [facility] Co de Phone Number [facility] [place] [address] * POC, GLUCOSE (06/16/2024 2:21 AM EST) Glucometer, POC 176 65 - 199 mg/dL 06/16/2024 2:31 AM EST [facility] Comment:Supplemental ranges: <140 mg/dL before meals <180 mg/dL all other times of the day. Blood CAPILLARY BLOOD / Unknown 06/16/2024 2:21 AM EST 06/16/2024 2:31 AM EST Bobby Loja MD POINT OF CARE TEST O RDERABLES Performing Organization Address [facility] Co de Phone Number [facility] [place] [address] * (ABNORMAL) POC, GLUCOSE (06/16/2024 12:09 AM EST) Glucometer, POC 222(H) 65 - 199 mg/dL 06/16/2024 12:09 AM EST [facility] Comment:Supplemental ranges: <140 mg/dL before meals <180 mg/dL all other times of the day. Blood CAPILLARY BLOOD / Unknown 06/16/2024 12:09 AM EST 06/16/2024 12:09 AM EST Bobby Loja MD POINT OF CARE TEST O RDBECKIE Performing Organization Address [facility] Co de Phone Number [facility] [place] [address] * (ABNORMAL) POC, GLUCOSE (06/15/2024 10:07 PM EST) Glucometer, POC 320(H) 65 - 199 mg/dL 06/15/2024 10:07 PM EST [facility] Comment:Supplemental ranges: <140 mg/dL before meals <180 mg/dL all other times of the day. Blood CAPILLARY BLOOD / Unknown 06/15/2024 10:07 PM EST 06/15/2024 10:07 PM EST Bobby Loja MD POINT OF CARE TEST O NIKA Performing Organization Address City/[facility]/ZIP Co de Phone Number [facility] [place] [address] * (ABNORMAL) POC, GLUCOSE (06/15/2024 7:56 PM EST) Glucometer, POC 304(H) 65 - 199 mg/dL 06/15/2024 7:56 PM EST [facility] Comment:Supplemental ranges: <140 mg/dL before meals <180 mg/dL all other times of the day. Blood CAPILLARY BLOOD / Unknown 06/15/2024 7:56 PM EST 06/15/2024 7:56 PM EST Bobby Loja MD POINT OF CARE TEST O NIKA Performing Organization Address [facility] Co de Phone Number [facility] [place] [address] * (ABNORMAL) POC, GLUCOSE (06/15/2024 7:52 PM EST) Glucometer, POC 288(H) 65 - 199 mg/dL 06/15/2024 7:52 PM EST [facility] Comment:Supplemental ranges: <140 mg/dL before meals <180 mg/dL all other times of the day. Blood CAPILLARY BLOOD / Unknown 06/15/2024 7:52 PM EST 06/15/2024 7:52 PM EST Narrative Authorizing Provider Result Saranya Loja MD POINT OF CARE TEST O NIKA Performing Organization Address City/[facility]/ZIP Co de Phone Number [facility] [place] [address] * POC, GLUCOSE (06/15/2024 4:21 PM EST) Glucometer, POC 192 65 - 199 mg/dL 06/15/2024 4:21 PM EST [facility] Comment:Supplemental ranges: <140 mg/dL before meals <180 mg/dL all other times of the day. Blood CAPILLARY BLOOD / Unknown 06/15/2024 4:21 PM EST 06/15/2024 4:21 PM EST Bobby Loja MD POINT OF CARE TEST O NIKA Performing Organization Address City/[facility]/ZIP Co de Phone Number [facility] [place] [address] * POC, GLUCOSE (06/15/2024 3:27 PM EST) Glucometer, POC 155 65 - 199 mg/dL 06/15/2024 3:27 PM EST [facility] Comment:Supplemental ranges: <140 mg/dL before meals <180 mg/dL all other times of the day. Blood CAPILLARY BLOOD / Unknown 06/15/2024 3:27 PM EST 06/15/2024 3:27 PM EST Bobby Loja MD POINT OF CARE TEST O NIKA Performing Organization Address [facility] Co de Phone Number [facility] [place] [address] * POC, GLUCOSE (06/15/2024 2:23 PM EST) Glucometer, POC 160 65 - 199 mg/dL 06/15/2024 2:23 PM EST [facility] Comment:Supplemental ranges: <140 mg/dL before meals <180 mg/dL all other times of the day. Blood CAPILLARY BLOOD / Unknown 06/15/2024 2:23 PM EST 06/15/2024 2:23 PM EST Bobby Loja MD POINT OF CARE TEST O NIKA Performing Organization Address City/[facility]/ZIP Co de Phone Number [facility] [place] [address] * POC, GLUCOSE (06/15/2024 1:26 PM EST) Glucometer, POC 167 65 - 199 mg/dL 06/15/2024 1:26 PM EST [facility] Comment:Supplemental ranges: <140 mg/dL before meals <180 mg/dL all other times of the day. Blood CAPILLARY BLOOD / Unknown 06/15/2024 1:26 PM EST 06/15/2024 1:26 PM EST Bobby Loja MD POINT OF CARE TEST O NIKA Performing Organization Address [facility] Co de Phone Number [facility] [place] [address] * (ABNORMAL) POC, GLUCOSE (06/15/2024 12:55 PM EST) Glucometer, POC 210(H) 65 - 199 mg/dL 06/15/2024 12:55 PM EST [facility] Comment:Supplemental ranges: <140 mg/dL before meals <180 mg/dL all other times of the day. Blood CAPILLARY BLOOD / Unknown 06/15/2024 12:55 PM EST 06/15/2024 12:55 PM EST Bobby Loja MD POINT OF CARE TEST O NIKA Performing Organization Address [facility] Co de Phone Number [facility] [place] [address] * (ABNORMAL) POC, GLUCOSE (06/15/2024 11:29 AM EST) Glucometer, POC 220(H) 65 - 199 mg/dL 06/15/2024 11:29 AM EST [facility] Comment:Supplemental ranges: <140 mg/dL before meals <180 mg/dL all other times of the day. Blood CAPILLARY BLOOD / Unknown 06/15/2024 11:29 AM EST 06/15/2024 11:29 AM EST Bobby Loja MD POINT OF CARE TEST O RDERABLES [facility] [place] [address] * (ABNORMAL) Basic Metabolic Panel (06/15/2024 11:23 AM EST) Glucose 215(H) 65 - 199 mg/dL 06/15/2024 12:08 PM EST [facility] Comment:Glucose Concentratio n >=200 [...] Provider Result Saranya Loja MD CHEMISTRY ORDERABLES [facility] [place] [address] * POC, GLUCOSE (06/15/2024 10:29 AM EST) Glucometer, POC 189 65 - 199 mg/dL 06/15/2024 10:29 AM EST [facility] Comment:Supplemental ranges: <140 mg/dL before meals <180 mg/dL all other times of the day. Blood CAPILLARY BLOOD / Unknown 06/15/2024 10:29 AM EST 06/15/2024 10:29 AM EST Bobby Loja MD POINT OF CARE TEST O RDERABLES Performing Organization Address City/[facility]/ZIP Co de Phone Number [facility] [place] [address] * POC, GLUCOSE (06/15/2024 9:45 AM EST) Glucometer, POC 178 65 - 199 mg/dL 06/15/2024 9:45 AM EST [facility] Comment:Supplemental ranges: <140 mg/dL before meals <180 mg/dL all other times of the day. Blood CAPILLARY BLOOD / Unknown 06/15/2024 9:45 AM EST 06/15/2024 9:45 AM EST Narrative Authorizing Provider Result Saranya Loja MD POINT OF CARE TEST O RDERABLES [facility] [place] [address] * (ABNORMAL) Cooximetry, POC (06/15/2024 9:31 AM [...] MD POINT OF CARE TEST O RDERABLES [facility] [place] [address] * Cooximetry, POC (06/15/2024 9:22 AM EST) [...] MD POINT OF CARE TEST O RDERABLES [facility] [place] [address] * (ABNORMAL) Blood Gas, Arterial POC (06/15/2024 [...] City/[facility]/ZIP Co de Phone Number [facility] [place] [address] * (ABNORMAL) POC, GLUCOSE (06/15/2024 8:37 AM EST) Glucometer, POC 204(H) 65 - 199 mg/dL 06/15/2024 8:37 AM [facility] Comment:Supplemental ranges: <140 mg/dL before meals <180 mg/dL all other times of the day. Blood CAPILLARY BLOOD / Unknown 06/15/2024 8:37 AM EST 06/15/2024 8:37 AM EST Bobby Loja MD POINT OF CARE TEST O NIKA [facility] [place] [address] * POC, GLUCOSE (06/15/2024 7:37 AM EST) Glucometer, POC 199 65 - 199 mg/dL 06/15/2024 7:37 AM EST [facility] Comment:Supplemental ranges: <140 mg/dL before meals <180 mg/dL all other times of the day. Blood CAPILLARY BLOOD / Unknown 06/15/2024 7:37 AM EST 06/15/2024 7:38 AM EST Bobby Loja MD POINT OF CARE TEST O NIKA Performing Organization Address [facility] de Phone Number [facility] [place] [address] * (ABNORMAL) POC, GLUCOSE (06/15/2024 7:01 AM EST) Glucometer, POC 203(H) 65 - 199 mg/dL 06/15/2024 7:01 AM EST [facility] Comment:Supplemental ranges: <140 mg/dL before meals <180 mg/dL all other times of the day. Blood CAPILLARY BLOOD / Unknown 06/15/2024 7:01 AM EST 06/15/2024 7:01 AM EST Bobby Loja MD POINT OF CARE TEST Abimael MAHER Performing Organization Address [facility] de Phone Number [facility] [place] [address] * XR Chest One View (06/15/2024 6:31 AM EST) WORKSTATION ID [id number] RAD Anatomical Region Laterality Modality Chest N/A [...] who have questions please contact the health animal caretaker supervisor that requested your imaging first. ? Electronically signed by: Stuart Aponte MD, [facility] ??([phone]), at 06/15/2024 10:38 AM Narrative 06/15/2024 10:38 [...] patients who have questions please contactthe health animal caretaker supervisor that requested your imaging first. Bobby Loja MD IMG DX ORDERABLES * POC, GLUCOSE (06/15/2024 6:02 AM EST) Glucometer, POC 179 65 - 199 mg/dL 06/15/2024 6:02 AM EST [facility] Comment:Supplemental ranges: <140 mg/dL before meals <180 mg/dL all other times of the day. Blood CAPILLARY BLOOD / Unknown 06/15/2024 6:02 AM EST 06/15/2024 6:02 AM EST Bobby Loja MD POINT OF CARE TEST O NIKA Performing Organization Address City/[facility]/ZIP Co de Phone Number [facility] [place] [address] * POC, GLUCOSE (06/15/2024 5:06 AM EST) Glucometer, POC 160 65 - 199 mg/dL 06/15/2024 5:06 AM EST [facility] Comment:Supplemental ranges: <140 mg/dL before meals <180 mg/dL all other times of the day. Blood CAPILLARY BLOOD / Unknown 06/15/2024 5:06 AM EST 06/15/2024 5:06 AM EST Bobby Loja MD POINT OF CARE TEST O NIKA Performing Organization Address City/[facility]/ZIP Co de Phone Number [facility] [place] [address] * POC, GLUCOSE (06/15/2024 4:05 AM EST) Glucometer, POC 160 65 - 199 mg/dL 06/15/2024 4:06 AM EST [facility] Comment:Supplemental ranges: <140 mg/dL before meals <180 mg/dL all other times of the day. Blood CAPILLARY BLOOD / Unknown 06/15/2024 4:05 AM EST 06/15/2024 4:06 AM EST Bobby Loja MD POINT OF CARE TEST O NIKA [facility] [place] [address] * POC, GLUCOSE (06/15/2024 3:07 AM EST) Glucometer, POC 151 65 - 199 mg/dL 06/15/2024 3:07 AM EST [facility] Comment:Supplemental ranges: <140 mg/dL before meals <180 mg/dL all other times of the day. Blood CAPILLARY BLOOD / Unknown 06/15/2024 3:07 AM EST 06/15/2024 3:07 AM EST Bobby oLja MD POINT OF CARE TEST O RDERABLES [facility] [place] [address] * (ABNORMAL) Basic Metabolic Panel (06/15/2024 1:48 AM EST) Glucose 140 65 - 199 mg/dL 06/15/2024 2:38 AM EST [facility] Comment:Glucose Concentratio n >=200 [...] - 10.5 mg/dL 06/15/2024 2:38 AM EST [facility] Est Glomerular Filtration Rate - [...] AM EST Bobby Loja MD CHEMISTRY ORDERABLES [facility] [place] [address] * (ABNORMAL) CBC (with Diff) (06/15/2024 1:48 AM EST) White Blood Cell 11.71(H) 4.00 - 9.50 x10(3)/mc L 06/15/2024 2:13 AM EST [facility] Red Blood Cell 4.14(L) 4.58 - 5.54 x10(6)/mc L 06/15/2024 2:13 AM EST [facility] Hemoglobin 12.5(L) 13.7 - 16.5 g/dL 06/15/2024 2:13 AM [facility] Hematocrit 38.4(L) 40.5 - 48.5 % 06/15/2024 2:13 AM EST [facility] Mean Cell Volume 92.8 82.9 [...] - 0.90 x10(3)/mc L 06/15/2024 2:13 AM [facility] Eos % 0.2 % 06/15/2024 2:13 AM EST [facility] Eos Absolute <0.04 0.00 - 0.40 x10(3)/mc L 06/15/2024 2:13 AM EST [facility] Basophil % 0.2 % 06/15/2024 2:13 AM EST [facility] Baso Absolute <0.04 0.00 - 0.10 x10(3)/mc L 06/15/2024 2:13 AM EST [facility] Immature Gran % 0.5 % 2:13 AM EST [facility] Immature Gran Absolute 0.06(H) 0.00 - 0.04 x10(3)/mc L 06/15/2024 2:13 AM EST [facility] Blood VENOUS BLOOD SPECIMEN / Unknown Venipuncture / Unknown 06/15/2024 1:48 AM EST 06/15/2024 1:52 AM EST Bobby Loja MD HEMATOLOGY ORDERABLE S [facility] [place] [id number] * (ABNORMAL) Troponin - Single (06/15/2024 1:48 AM EST) Troponin-T, High Sensitivity 667(H) <=22 ng/L 06/15/2024 2:22 AM EST [facility] Comment: This patient's troponin T [...] troponin value can be found in the [facility] Test Catalog Troponin - [email or web address] Reference: Fourth Karnack Definition of Myocardial Infarction. Journal of the [place] [employer] 2018;72:3554-1538 Blood VENOUS BLOOD SPECIMEN / Unknown Venipuncture / Unknown 06/15/2024 1:48 AM EST 06/15/2024 1:52 AM EST Bobby Loja MD CHEMISTRY ORDERABLES [facility] [place] [address] * (ABNORMAL) Blood Gas, Arterial POC (06/15/2024 1:46 AM EST) pH, Arterial 7.33(L) 7.35 - 7.45 06/15/2024 1:47 AM EST [facility] PCO2, Arterial 40 35 - 45 mmHg 06/15/2024 1:47 AM [facility] PO2, Arterial 131(H) 85 - 104 mmHg 06/15/2024 1:47 AM [facility] Bicarbonate, Arterial 20.7 20.0 - 26.0 mmol/L 06/15/2024 1:47 AM EST [facility] Base Excess, Arterial -5.2(L) -3.0 - 3.0 mmol/L 06/15/2024 1:47 AM EST [facility] Hemoglobin, Arterial 13.4(L) 13.7 - 16.5 g/dL 06/15/2024 1:47 AM [facility] Oxyhemoglobin, Arterial 97.9(H) 94.0 - 97.0 % 06/15/2024 1:47 AM EST [facility] Carboxyhemoglobin , Arterial 0.5 % 06/15/2024 1:47 AM EST [facility] Comment: Nonsmokers: 0.5-1.5% COHB ?? [...] MD POINT OF CARE TEST O RDERABLES [facility] [place] [address] * POC, GLUCOSE (06/15/2024 1:05 AM EST) Glucometer, POC 116 65 - 199 mg/dL 06/15/2024 1:05 AM EST [facility] Comment:Supplemental ranges: <140 mg/dL before meals <180 mg/dL all other times of the day. Blood CAPILLARY BLOOD / Unknown 06/15/2024 1:05 AM EST 06/15/2024 1:05 AM EST Bobby Loja MD POINT OF CARE TEST O RDNICOLLEBLES Performing Organization Address City/[facility]/ZIP Co de Phone Number [facility] [place] [address] * POC, GLUCOSE (06/15/2024 12:16 AM EST) Glucometer, POC 135 65 - 199 mg/dL 06/15/2024 12:16 AM EST [facility] Comment:Supplemental ranges: <140 mg/dL before meals <180 mg/dL all other times of the day. Blood CAPILLARY BLOOD / Unknown 06/15/2024 12:16 AM EST 06/15/2024 12:16 AM EST Bobby Loja MD POINT OF CARE TEST O NIKA Performing Organization Address City/[facility]/ZIP Co de Phone Number [facility] [place] [address] * Potassium (06/14/2024 11:28 PM EST) Potassium 4.1 3.5 - 5.0 mMol/L 06/14/2024 11:54 PM EST [facility] Blood VENOUS BLOOD SPECIMEN / Unknown Venipuncture / Unknown 06/14/2024 11:28 PM EST 06/14/2024 11:34 PM EST Bobby Loja MD CHEMISTRY ORDERABLES Performing Organization Address City/[facility]/ZIP Co de Phone Number [facility] [place] [address] * POC, GLUCOSE (06/14/2024 10:58 PM EST) Glucometer, POC 126 65 - 199 mg/dL 06/14/2024 10:59 PM EST [facility] Comment:Supplemental ranges: <140 mg/dL before meals <180 mg/dL all other times of the day. Blood CAPILLARY BLOOD / Unknown 06/14/2024 10:58 PM EST 06/14/2024 10:59 PM EST Narrative Authorizing Provider Result Saranya Loja MD POINT OF CARE TEST O RDERAPIETER Performing Organization Address City/[facility]/ZIP Co de Phone Number [facility] [place] [address] * POC, GLUCOSE (06/14/2024 9:55 PM EST) Glucometer, POC 152 65 - 199 mg/dL 06/14/2024 9:56 PM EST [facility] Comment:Supplemental ranges: <140 mg/dL before meals <180 mg/dL all other times of the day. Blood CAPILLARY BLOOD / Unknown 06/14/2024 9:55 PM EST 06/14/2024 9:56 PM EST Narrative Authorizing Provider Result Saranya Loja MD POINT OF CARE TEST O NIKA Performing Organization Address City/[facility]/ZIP Co de Phone Number [facility] [place] [address] * POC, GLUCOSE (06/14/2024 8:54 PM EST) Glucometer, POC 151 65 - 199 mg/dL 06/14/2024 8:54 PM EST [facility] Comment:Supplemental ranges: <140 mg/dL before meals <180 mg/dL all other times of the day. Blood CAPILLARY BLOOD / Unknown 06/14/2024 8:54 PM EST 06/14/2024 8:54 PM EST Narrative Authorizing Provider Result Saranya Loja MD POINT OF CARE TEST O RDERAPIETER Performing Organization Address City/[facility]/ZIP Co de Phone Number [facility] [place] [address] * POC, GLUCOSE (06/14/2024 7:51 PM EST) Glucometer, POC 169 65 - 199 mg/dL 06/14/2024 7:52 PM EST [facility] Comment:Supplemental ranges: <140 mg/dL before meals <180 mg/dL all other times of the day. Blood CAPILLARY BLOOD / Unknown 06/14/2024 7:51 PM EST 06/14/2024 7:52 PM EST Bobby Loja MD POINT OF CARE TEST O NIKA [facility] [place] [address] * POC, GLUCOSE (06/14/2024 6:49 PM EST) Glucometer, POC 194 65 - 199 mg/dL 06/14/2024 6:50 PM EST [facility] Comment:Supplemental ranges: <140 mg/dL before meals <180 mg/dL all other times of the day. Blood CAPILLARY BLOOD / Unknown 06/14/2024 6:49 PM EST 06/14/2024 6:50 PM EST Bobby Loja MD POINT OF CARE TEST O NIKA [facility] [place] [address] * (ABNORMAL) Hemoglobin (06/14/2024 6:19 PM EST) Hemoglobin 13.1(L) 13.7 - 16.5 g/dL 06/14/2024 7:08 PM EST [facility] Blood VENOUS BLOOD SPECIMEN / Unknown Venipuncture / Unknown 06/14/2024 6:19 PM EST 06/14/2024 6:28 PM EST Bobby Loja MD HEMATOLOGY ORDERABLE S [facility] [place] [address] * Potassium (06/14/2024 6:19 PM EST) [facility] Potassium 3.9 3.5 - 5.0 mMol/L 06/14/2024 6:52 PM EST [facility] Blood VENOUS BLOOD SPECIMEN / Unknown Venipuncture / Unknown 06/14/2024 6:19 PM EST 06/14/2024 6:28 PM EST Bobby Loja MD CHEMISTRY ORDERABLES Performing Organization Address City/[facility]/ZIP Co de Phone Number [facility] [place] [address] * (ABNORMAL) POC, GLUCOSE (06/14/2024 6:03 PM EST) [facility] Glucometer, POC 201(H) 65 - 199 mg/dL 06/14/2024 6:03 PM EST [facility] Comment:Supplemental ranges: <140 mg/dL before meals <180 mg/dL all other times of the day. Blood CAPILLARY BLOOD / Unknown 06/14/2024 6:03 PM EST 06/14/2024 6:03 PM EST Bobby Loja MD POINT OF CARE TEST O RDERABLES Performing Organization Address City/[facility]/ZIP Co de Phone Number [facility] [place] [address] * (ABNORMAL) Blood Gas, Arterial POC (06/14/2024 4:51 PM EST) [facility] pH, Arterial 7.32(L) 7.35 - 7.45 06/14/2024 4:52 PM EST [facility] PCO2, Arterial 46(H) 35 - 45 mmHg 06/14/2024 4:52 PM EST [facility] PO2, Arterial 85 85 - 104 mmHg 06/14/2024 4:52 PM [facility] Bicarbonate, Arterial 23.1 20.0 - 26.0 mmol/L 06/14/2024 4:52 PM EST [facility] Base Excess, Arterial -3.1(L) -3.0 [...] 65 - 199 mg/dL 06/14/2024 4:52 PM [facility] Comment:Glucose Concentratio n >=200 mg/dL plus symptoms is consistent with Diabetes Mellitus. Blood ARTERIAL BLOOD / Unknown 06/14/2024 4:51 PM EST 06/14/2024 4:52 PM EST Bobby Loja MD POINT OF CARE TEST O NIKA Performing Organization Address [facility] Co de Phone Number [facility] [place] [address] * POC, GLUCOSE (06/14/2024 4:00 PM EST) Glucometer, POC 184 65 - 199 mg/dL 06/14/2024 4:01 PM EST [facility] Comment:Supplemental ranges: <140 mg/dL before meals <180 mg/dL all other times of the day. Blood CAPILLARY BLOOD / Unknown 06/14/2024 4:00 PM EST 06/14/2024 4:01 PM EST Bobby Loja MD POINT OF CARE TEST O NIKA Performing Organization Address [facility] Phone Number [facility] [place] [address] * XR Chest One View (06/14/2024 3:05 PM EST) WORKSTATION ID [id number] DH RAD Anatomical Region Laterality Modality Chest [...] who have questions please contact the health animal caretaker supervisor that requested your imaging first. ? Electronically signed by: Stuart Aponte MD, [facility] ??([phone]), at 06/14/2024 4:07 PM Narrative 06/14/2024 4:07 [...] patients who have questions please contactthe health animal caretaker supervisor that requested your imaging first. Bobby Loja MD IMG DX ORDERABLES * (ABNORMAL) Blood Gas, Arterial POC (06/14/2024 2:52 PM EST) pH, Arterial 7.28(LLL) 7.35 - 7.45 06/14/2024 2:53 PM EST [facility] PCO2, Arterial 50(H) 35 - [...] - 5.0 mmol/L 06/14/2024 2:53 PM EST [facility] Chloride, Arterial 106 98 - 107 mmol/L 06/14/2024 2:53 PM [facility] Lactate, Arterial 1.1 0.5 - 2.2 mmol/L 06/14/2024 2:53 PM EST [facility] Fraction of Inspired Oxygen 100 % 06/14/2024 2:53 PM EST [facility] PF Ratio 510 Ratio 06/14/2024 [...] MD POINT OF CARE TEST O RDERABLES [facility] [place] [address] * EKG 12 Lead (06/14/2024 2:46 PM EST) Ventricular rate 80 BPM MUSE SYSTEM Atrial Rate 80 BPM MUSE SYSTEM P-R Interval 120 ms MUSE SYSTEM QRS Duration 108 ms MUSE SYSTEM Q-T Interval 454 ms MUSE SYSTEM QTC Calculated (Bezet) 523 ms MUSE SYSTEM Calculated P [place] 70 degrees MUSE SYSTEM Calculated R [place] 56 degrees MUSE SYSTEM Calculated T [place] 50 degrees MUSE SYSTEM INTERPRETATION AV dual-paced rhythm Abnormal ECG When compared with ECG of 03-JUN-2024 01:45, Vent. rate has increased BY ??17 BPM Confirmed by MD Marisol, Shaheen ([id number]) on 06/15/2024 1:57:23 PM MUSE SYSTEM 06/14/2024 2:46 PM EST 06/15/2024 1:57 PM EST Bobby Loja MD ECG ORDERABLES MUSE SYSTEM * Prepare RBC (06/14/2024 2:27 PM EST) Status Information Returned [facility] Product Identification RBC [facility] Unit Number [id number] [facility] Product Code [id number] [facility] Unit Blood Type OPOS [facility] Specimen Expiration Date [facility] Volulme 350 [facility] Issue Date / Time [facility] Status Information Returned [facility] Product Identification RBC [facility] Unit Number [id number] [facility] Product Code [id number] [facility] Unit Blood Type OPOS [facility] Specimen Expiration Date [facility] Volulme 350 [facility] Issue Date / Time [facility] Blood 06/14/2024 6:2 5 AM EST Haja Byrnes MD BLOOD BANK PRODUCT O RDERABLES [facility] [place] [address] * (ABNORMAL) Cooximetry, POC (06/14/2024 1:52 PM EST) pO2, Coox 58 mmHg 06/14/2024 1:55 PM EST [facility] Hemoglobin, Coox 12.6(L) 13.7 - 16.5 g/dL 06/14/2024 1:55 PM EST [facility] Oxyhemoglobin, Coox 85.5 % 06/14/2024 1:55 PM EST [facility] Carboxyhemoglo bin, Coox 0.3 % 06/14/2024 1:55 PM EST [facility] Comment: Nonsmokers: 0.5-1.5% COHB ?? Smokers: Variable ??but usually less than 10% ?? Toxic: 20-30% COHB ?? Lethal: Greater than 60% COHB Methemoglobin, Coox 0.6 <=1.5 % 06/14/2024 1:55 PM [facility] Blood (Mixed Venous) 06/14/2024 1:52 PM EST 06/14/2024 1:55 PM EST Haja Byrnes MD POINT OF CARE TEST O RDERABLES [facility] [place] [address] * (ABNORMAL) Blood Gas, Arterial POC (06/14/2024 [...] 0.5 <=1.5 % 06/14/2024 12:48 PM EST [facility] Sodium, Arterial 135 135 - [...] MD POINT OF CARE TEST O RDERABLES [facility] [place] [address] * (ABNORMAL) Cooximetry, POC (06/14/2024 12:42 PM EST) pO2, Coox 71 mmHg 06/14/2024 12:45 PM [facility] Hemoglobin, Coox 11.6(L) 13.7 - 16.5 g/dL 06/14/2024 12:45 PM [facility] Oxyhemoglobin, Coox 91.5 % 06/14/2024 12:45 PM EST [facility] Carboxyhemoglo bin, Coox 0.3 % 06/14/2024 12:45 PM EST [facility] Comment: Nonsmokers: 0.5-1.5% COHB ?? Smokers: Variable ??but usually less than 10% ?? Toxic: 20-30% COHB ?? Lethal: Greater than 60% COHB Methemoglobin, Coox 0.4 <=1.5 % 06/14/2024 12:45 PM EST [facility] Blood (Mixed Venous) 06/14/2024 12:42 PM EST 06/14/2024 12:45 PM EST Haja Byrnes MD POINT OF CARE TEST O RDERABLES [facility] [place] [address] * (ABNORMAL) Platelet count (06/14/2024 12:30 PM EST) Platelet 73(L) 145 - 357 x10(3)/mcL 06/14/2024 12:54 PM EST [facility] Blood ARTERIAL BLOOD / Unknown 06/14/2024 12:30 PM EST Comment:Pre-op diagnosis: CAD Bobby Loja MD HEMATOLOGY ORDERABLE S Performing Organization Address City/[facility]/ZIP Co de Phone Number [facility] [place] [address] * (ABNORMAL) Hemoglobin and Hematocrit, blood (06/14/2024 12:30 PM EST) Hemoglobin 10.9(L) 13.7 - 16.5 g/dL 06/14/2024 12:54 PM EST [facility] Hematocrit 33.5(L) 40.5 - 48.5 % 06/14/2024 12:54 PM EST [facility] Comment:This result has been called to Danielle López by Satya Page on 06/14/2024 12:53:56, and has been read back. Blood ARTERIAL BLOOD / Unknown 06/14/2024 12:30 PM EST 06/14/2024 12:42 PM EST Comment:Pre-op diagnosis: CAD Bobby Loja MD HEMATOLOGY ORDERABLE S Performing Organization Address [facility] Co de Phone Number [facility] [place] [address] * APTT (06/14/2024 12:30 PM EST) Partial Thromboplastin Time 31 25 - 37 sec 06/14/2024 12:57 PM EST [facility] Comment: The PTT is NOT appropriate for heparin monitoring. Use the Anti-Xa level for heparin monitoring (HEP UFH) or LMWH monitoring (HEP LMW). A PTT less than 37 seconds generally indicates adequate hemostasis. Blood ARTERIAL BLOOD / Unknown 06/14/2024 12:30 PM EST 06/14/2024 12:42 PM EST Comment:Pre-op diagnosis: CAD Bobby Loja MD HEMATOLOGY ORDERABLE S Performing Organization Address [facility] Co de Phone Number [facility] [place] [address] * (ABNORMAL) Prothrombin Time (06/14/2024 12:30 PM EST) Prothrombin Time 16.8(H) 9.4 - 12.5 sec 06/14/2024 12:57 PM EST [facility] International Normalization Ratio 1.5 <=4.9 06/14/2024 12:57 PM EST [facility] Comment: An INR < 2.0 [...] ORDERABLE S Performing Organization Address [facility] Co de Phone Number [facility] [place] [address] * Fibrinogen (06/14/2024 12:30 PM EST) Fibrinogen 211 200 - 393 mg/dL 06/14/2024 12:57 PM EST [facility] Comment: A fibrinogen level >100 mg/dL is adequate for hemostasis in most patients without underlying bleeding disorders. Blood ARTERIAL BLOOD / Unknown 06/14/2024 12:30 PM EST 06/14/2024 12:42 PM EST Comment:Pre-op diagnosis: CAD Bobby Loja MD HEMATOLOGY ORDERABLE S Performing Organization Address [facility] Co de Phone Number [facility] [place] [address] * (ABNORMAL) Blood Gas, Arterial POC (06/14/2024 12:15 PM EST) pH, Arterial 7.38 7.35 - 7.45 06/14/2024 12:16 PM [facility] PCO2, Arterial 40 35 - [...] Arterial 0.3 % 06/14/2024 12:16 PM EST [facility] Comment: Nonsmokers: 0.5-1.5% COHB ?? [...] MD POINT OF CARE TEST O RDERABLES [facility] [place] [address] * (ABNORMAL) Blood Gas, Arterial POC (06/14/2024 11:51 AM EST) pH, Arterial 7.40 7.35 - 7.45 06/14/2024 11:52 AM EST [facility] PCO2, Arterial 41 35 - [...] MD POINT OF CARE TEST O RDERABLES [facility] [place] [address] * (ABNORMAL) Blood Gas, Arterial POC (06/14/2024 [...] MD POINT OF CARE TEST O RDERABLES [facility] [place] [address] * (ABNORMAL) Scan, Peripheral Blood (06/14/2024 11:23 AM EST) RBC Morphology Abnormal 06/14/2024 11:59 AM [facility] Platelet Estimate Decreased(A) Normal 06/14/2024 11:59 AM [facility] [place] cells 1-5 /HPF 06/14/2024 11:59 AM [facility] Blood ARTERIAL BLOOD / Unknown 06/14/2024 11:23 AM EST 06/14/2024 11:27 AM EST Bobby Loja MD HEMATOLOGY ORDERABLE S [facility] [place] [address] * (ABNORMAL) Platelet count (06/14/2024 11:23 AM EST) Platelet 86(L) 145 - 357 x10(3)/mcL 06/14/2024 11:59 AM EST [facility] Blood ARTERIAL BLOOD / Unknown 06/14/2024 11:23 AM EST Comment:Pre-op diagnosis: CAD Bobby Loja MD HEMATOLOGY ORDERABLE S [facility] [place] [address] * (ABNORMAL) Hemoglobin and Hematocrit, blood (06/14/2024 11:23 AM EST) Hemoglobin 9.8(L) 13.7 - 16.5 g/dL 06/14/2024 11:59 AM EST [facility] Comment:This result has been called to Danielle López by Satya Page on 06/14/2024 11:58:33. Hematocrit 30.5(L) 40.5 - 48.5 % 06/14/2024 11:59 AM EST [facility] Comment:This result has been called to Danielle López by Satya Page on 06/14/2024 11:58:40, and has been read back. Blood ARTERIAL BLOOD / Unknown 06/14/2024 11:23 AM EST 06/14/2024 11:27 AM EST Comment:Pre-op diagnosis: CAD Bobby Loja MD HEMATOLOGY ORDERABLE S [facility] [place] [address] * (ABNORMAL) Blood Gas, Arterial POC (06/14/2024 10:58 AM EST) pH, Arterial 7.38 7.35 - 7.45 06/14/2024 10:59 AM EST [facility] PCO2, Arterial 43 35 - [...] MD POINT OF CARE TEST O RDERABLES [facility] [place] [address] * (ABNORMAL) Blood Gas, Arterial POC (06/14/2024 [...] MD POINT OF CARE TEST O RDERABLES [facility] [place] [address] * (ABNORMAL) Blood Gas, Arterial POC (06/14/2024 [...] MD POINT OF CARE TEST O RDERABLES [facility] [place] [address] * Surgical Pathology (06/14/2024 9:53 AM EST) Case Report Surgical Pathology Report ? Case: [id number] ? Authorizing Provider: ??Bobby Loja MD ? Collected: ? 06/14/2024 0953 ? Ordering Location: ? Main Operating Room Kristen ?? Received: ?06/14/2024 1413 ? [facility] ? Pathologist: ? Sandra [...] Inking: External surface inked black Sections/Process ing: Subcontract Administrator sections in 4 cassettes labeled A1-A4. cmk B. Heart, Atrial Appendage, Left, . B - Labeled/Fixative : Heart, atrial appendage, left, fresh. Quantity/Size: Single, 3.3 x 1.5 x 0.8 cm. Tissue Description: Portion of heart tissue consisting of rodriguez-white, semitranslucent, smooth endocardium with rodriguez-brown muscular myocardium and thin translucent epicardium with adherent adipose tissue. No areas of discoloration identified. Sections/Process ing: Subcontract Administrator sections in 1 cassette labeled B1. cmk [...] Comment:MARIALUISA Bobby Loja MD PATHOLOGY/CYTOLOGY O RDERABLES [facility] [place] [address] * Cooximetry, POC (06/14/2024 9:00 AM EST) [...] Coox 0.3 % 06/14/2024 9:04 AM EST [facility] Comment: Nonsmokers: 0.5-1.5% COHB ?? Smokers: Variable ??but usually less than 10% ?? Toxic: 20-30% COHB ?? Lethal: Greater than 60% COHB Methemoglobin, Coox 0.3 <=1.5 % 06/14/2024 9:04 AM EST [facility] Temperature Coox 35.2 C 06/14/20 24 9:04 AM EST [facility] Blood (Mixed Venous) 06/14/2024 9:00 AM EST 06/14/2024 9:04 AM EST Haja Byrnes MD POINT OF CARE TEST O RDERABLES [facility] [place] [address] * (ABNORMAL) Blood Gas, Arterial POC (06/14/2024 8:39 AM [facility]) pH, Arterial 7.37 7.35 - 7.45 [...] 98 - 107 mmol/L 06/14/2024 8:40 AM [facility] Lactate, Arterial 0.9 0.5 - 2.2 mmol/L 06/14/2024 8:40 AM [facility] IONIZED CALCIUM, ARTERIAL 1.17 1.15 - 1.33 mmol/L 06/14/2024 8:40 AM EST [facility] Glucose, Arterial 121 65 - 199 mg/dL 06/14/2024 8:40 AM EST [facility] Comment:Glucose Concentratio n >=200 mg/dL plus symptoms is consistent with Diabetes Mellitus. Blood ARTERIAL BLOOD / Unknown 06/14/2024 8:39 AM EST 06/14/2024 8:40 AM EST Haja Byrnes MD POINT OF CARE TEST O RDERABLES [facility] [place] [address] * Transesophageal Echo/OR (06/14/2024 7:20 AM EST) Anatomical Region Laterality Modality Cardiac Other 06/14/2024 7:20 AM EST Narrative 06/14/2024 4:36 PM EST Version: 2 Study ID: [id number] [address] [place] [address] ?OR Transesophageal Echo Report Name: TYSON GEORGE [...] of this mass after consultation with other fourdrinier wire weaver experts and the decision was made by [...] MD - 06/14/2024 Version: 2 Study ID: [id number] [address] [place] [id number] ORTransesophageal Echo Report Name: GEORGE MEHTA Study Date: 06/14/2024,7: 20 AM Patient Location:^TN16^A : 1955 Age: 69 Years Gender: Male [...] of this mass after consultation with other fourdrinier wire weaver experts and thedecision was made by surgeon [...] - 199 mg/dL 06/14/2024 7:12 AM EST [facility] Comment:Supplemental ranges: <140 mg/dL before meals <180 mg/dL all other times of the day. Blood CAPILLARY BLOOD / Unknown 06/14/2024 7:11 AM EST 06/14/2024 7:12 AM EST Haja Byrnes MD POINT OF CARE TEST O NIKA Performing Organization Address City/[facility]/ZIP Co de Phone Number [facility] [place] [address] * POC, GLUCOSE (06/14/2024 4:30 AM EST) Glucometer, POC 85 65 - 199 mg/dL 06/14/2024 4:30 AM EST [facility] Comment:Supplemental ranges: <140 mg/dL before meals <180 mg/dL all other times of the day. Blood CAPILLARY BLOOD / Unknown 06/14/2024 4:30 AM EST 06/14/2024 4:30 AM EST Haja Byrnes MD POINT OF CARE TEST O NIKA Performing Organization Address City/[facility]/ZIP Co de Phone Number [facility] [place] [address] * (ABNORMAL) Heparin (unfractionated) Level (06/14/2024 12:12 AM EST) UF Heparin 1.02(HHH) IU/mL 06/14/2024 12:46 AM [facility] [...] EST Shahnaz Scanlon MD HEMATOLOGY ORDERABLE S [facility] [place] [address] * (ABNORMAL) CBC (with Diff) (06/14/2024 12:12 [...] 0.40 x10(3)/mc L 06/14/2024 12:38 AM EST [facility] Basophil % 0.8 % 06/14/2024 12:38 AM EST [facility] Baso Absolute 0.08 0.00 - 0.10 x10(3)/mc L 06/14/2024 12:38 AM EST [facility] Immature Gran % 0.6 % 12:38 AM EST [facility] Immature Gran Absolute 0.06(H) 0.00 - 0.04 x10(3)/mc L 06/14/2024 12:38 AM EST [facility] Blood VENOUS BLOOD SPECIMEN / Unknown Venipuncture / Unknown 06/14/2024 12:12 AM EST 06/14/2024 12:29 AM EST Shahnaz Scanlon MD HEMATOLOGY ORDERABLE S [facility] [place] [address] * Magnesium (06/14/2024 12:12 AM EST) Magnesium 0.74 0.69 - 1.07 mMol/L 06/14/2024 12:57 AM EST [facility] Blood VENOUS BLOOD SPECIMEN / Unknown Venipuncture / Unknown 06/14/2024 12:12 AM EST 06/14/2024 12:29 AM EST Shahnaz Scanlon MD CHEMISTRY ORDERABLES [facility] [place] [address] * (ABNORMAL) Basic Metabolic Panel (06/14/2024 12:12 AM EST) Glucose 97 65 - 199 mg/dL 06/14/2024 12:57 AM EST [facility] Comment:Glucose Concentratio n >=200 [...] AM EST Shahnaz Scanlon MD CHEMISTRY ORDERABLES [facility] [place] [address] * Scan Doc: Implantable Devices (06/14/2024 12:00 AM EST) Narrative 06/14/2024 12:00 AM EST Ordered by an unspecified provider. Scanning Provider MEDIA MGR SCAN EXT O RDR/RSLT * POC, GLUCOSE (06/13/2024 11:12 PM EST) Glucometer, POC 104 65 - 199 mg/dL 06/13/2024 11:13 PM EST [facility] Comment:Supplemental ranges: <140 mg/dL before meals <180 mg/dL all other times of the day. Blood CAPILLARY BLOOD / Unknown 06/13/2024 11:12 PM EST 06/13/2024 11:13 PM EST Haja Byrnes MD POINT OF CARE TEST O NIKA Performing Organization Address City/[facility]/ZIP Co de Phone Number [facility] [place] [address] * (ABNORMAL) POC, GLUCOSE (06/13/2024 8:03 PM EST) Glucometer, POC 206(H) 65 - 199 mg/dL 06/13/2024 8:03 PM EST [facility] Comment:Supplemental ranges: <140 mg/dL before meals <180 mg/dL all other times of the day. Blood CAPILLARY BLOOD / Unknown 06/13/2024 8:03 PM EST 06/13/2024 8:03 PM EST Haja Byrnes MD POINT OF CARE TEST O NIKA Performing Organization Address City/[facility]/ZIP Co de Phone Number [facility] [place] [address] * Heparin (unfractionated) Level (06/13/2024 4:11 PM EST) UF Heparin 0.76 IU/mL 06/13/2024 4:24 PM EST [facility] Comment: Heparin (anti-Xa) levels should be determined in a plasma sample that has been drawn 6 hours after a dose change to approximate steady-state for continuous heparin infusions. Indication specific Heparin (anti-Xa) levels based on order set selection: Acute DVT or PE prevention: ? 0.3-0.7 IU/mL Thrombosis Prevention (e.g. atrial fibrillation, clarnece-procedural bridging, mechanical valves): ? 0.3-0.7 IU/mL Acute Coronary Syndrome: ? 0.3-0.7 IU/mL Stroke Indications: ? 0.3-0.5 IU/mL Ultra-low intensity (select indications in cardiac surgery): ? 0.1-0.3 IU/mL Blood VENOUS BLOOD SPECIMEN / Unknown Venipuncture / Unknown 06/13/2024 4:11 PM EST 06/13/2024 4:15 PM EST Shahnaz Scanlon MD HEMATOLOGY ORDERABLE S Performing Organization Address City/[facility]/ZIP Co de Phone Number [facility] [place] [address] * ABORH RECHECK (06/13/2024 4:11 PM EST) [facility] ABORH Recheck O POSITIVE 06/13/2024 4:50 PM EST [facility] Blood VENOUS BLOOD SPECIMEN / Unknown Venipuncture / Unknown 06/13/2024 4:11 PM EST 06/13/2024 4:19 PM EST Haja Byrnes MD BLOOD BANK LAB ORDER EUSEBIA Performing Organization Address City/[facility] Co de Phone Number [facility] [place] [address] * (ABNORMAL) POC, GLUCOSE (06/13/2024 4:09 PM EST) [facility] Glucometer, POC 216(H) 65 - 199 mg/dL 06/13/2024 4:10 PM EST [facility] Comment:Supplemental ranges: <140 mg/dL before meals <180 mg/dL all other times of the day. Blood CAPILLARY BLOOD / Unknown 06/13/2024 4:09 PM EST 06/13/2024 4:10 PM EST Haja Byrnes MD POINT OF CARE TEST O RDERABLES [facility] [place] [address] * Type and screen ([facility]CGP/RAFITA) (06/13/2024 11:53 AM EST) Pathologist [facility] ABORH Type O POSITIVE 06/13/2024 1:16 PM EST [facility] PATIENT HISTORY Not Found 06/13/2024 1:16 PM EST [facility] Expires at [id number] on: 06/16/2024 06/13/2024 1:16 PM EST [facility] ANTIBODY SCREEN AUTOMATED Negative 06/13/2024 1:16 PM EST [facility] T&S only valid at [facility] 06/13/2024 1:16 PM EST [facility] Blood VENOUS BLOOD SPECIMEN / Unknown Venipuncture / Unknown 06/13/2024 11:53 AM EST 06/13/2024 11:56 AM EST Narrative [facility] - 06/13/2024 1:16 PM EST This Type and Screen result is only valid at the [facility] Haja Byrnes MD BLOOD BANK LAB ORDER EUSEBIA Performing Organization Address City/[facility]/ZIP Co de Phone Number [facility] [place] [address] * POC, GLUCOSE (06/13/2024 11:50 AM EST) [facility] Glucometer, POC 178 65 - 199 mg/dL 06/13/2024 11:51 AM EST [facility] Comment:Supplemental ranges: <140 mg/dL before meals <180 mg/dL all other times of the day. Blood CAPILLARY BLOOD / Unknown 06/13/2024 11:50 AM EST 06/13/2024 11:51 AM EST Haja Byrnes MD POINT OF CARE TEST O RDERABLES [facility] [place] [address] * XR Chest One View (06/13/2024 10:35 AM EST) WORKSTATION ID [id number] RAD Anatomical Region Laterality Modality Chest N/A [...] who have questions please contact the health animal caretaker supervisor that requested your imaging first. ? [...] patients who have questions please contactthe health animal caretaker supervisor that requested your imaging first. Haja Byrnes MD IMG DX ORDERABLES * CARDIAC CATHETERIZATION (06/13/2024 9:02 AM EST) Anatomical Region Laterality Modality Other Narrative 06/15/2024 9:07 AM EST ?[facility] ? Cardiac Catheterization/Intervention Report ? Patient Name: Tyson, George L. ? Procedure Date: 06/13/2024 ? A #: [id number] ? Primary Physician: Nuha Shen I ? Case #: [id number] ? File Name: [id number] ? Catheterization Order Number: [id number] ? [facility] ? Final Report [place], [place] ? Patient Name: ? George L. Tyson ? ID#: ?[id number] ? : ?1955 ? Procedure Date: ? June 13, 2024 ?Case #: ? [id number] ? Room: ? 6 ? Case Physician: [...] as ASA Class IV. The [facility] clinical frailty scale is 5: ?Mildly Frail. [...] procedure was Urgent. The indication for ?the ship laborer visit is ACS greater than 24 [...] angiography, vascular ?ultrasound and IABP insertion in ship laborer. ? Nuha Shen, M.D. ? Electronically Signed by: Nuha Shen, M.D. ? Report Finalized: 06/15/2024 ??08:59 ? Procedure Note Nuha Shen MD - 06/15/2024 [facility] Cardiac Catheterization/Intervention Report Patient Name: George Mehta Procedure Date: 06/13/2024 A #: [id number] Primary Physician: Nuha Shen I Case #: [id number] File Name: [id number] Catheterization Order Number: [id number] [facility] FinalReport [place], [place] Patient Name: George Mehta ID#:[id number] :1955 Procedure Date: June 13, 2024 Case [...] as ASA Class IV. The [facility] clinical frailty scale is5: Mildly Frail. Diagnostic [...] diagnostic procedure was Urgent. The indicationfor the ship laborer visit is ACS greater than 24 [...] site angiography,vascular ultrasound and IABP insertion in ship laborer. Nuha Shen M.D. Electronically Signed by: Nuha Shen M.D. Report Finalized: 06/15/2024 08:59 Nuha Rojo MD CARDIAC CATH ORDERA BLES * Potassium (06/13/2024 7:48 AM EST) [facility] Potassium 4.5 3.5 - 5.0 mMol/L 06/13/2024 8:28 AM EST [facility] Blood VENOUS BLOOD SPECIMEN / Unknown Venipuncture / Unknown 06/13/2024 7:48 AM EST 06/13/2024 7:55 AM EST Shahnaz Scanlon MD CHEMISTRY ORDERABLES Performing Organization Address City/[facility]/ZIP Co de Phone Number [facility] [place] [address] * POC, GLUCOSE (06/13/2024 7:41 AM EST) Glucometer, POC 126 65 - 199 mg/dL 06/13/2024 7:41 AM EST [facility] Comment:Supplemental ranges: <140 mg/dL before meals <180 mg/dL all other times of the day. Blood CAPILLARY BLOOD / Unknown 06/13/2024 7:41 AM EST 06/13/2024 7:41 AM EST Ethel Carrillo MD POINT OF CARE TEST O RDERABLES Performing Organization Address City/[facility]/ZIP Co de Phone Number [facility] [place] [address] * POC, GLUCOSE (06/13/2024 3:25 AM EST) Glucometer, POC 99 65 - 199 mg/dL 06/13/2024 3:25 AM EST [facility] Comment:Supplemental ranges: <140 mg/dL before meals <180 mg/dL all other times of the day. Blood CAPILLARY BLOOD / Unknown 06/13/2024 3:25 AM EST 06/13/2024 3:25 AM EST Ethel Carrillo MD POINT OF CARE TEST O RDERABLES Performing Organization Address [facility] de Phone Number [facility] [place] [address] * Heparin (unfractionated) Level (06/13/2024 2:26 AM EST) Pathologist [facility] UF Heparin 0.60 IU/mL 06/13/2024 3:32 AM EST [facility] Comment: Heparin (anti-Xa) levels should [...] City/[facility]/ZIP Co de Phone Number [facility] [place] [address] * (ABNORMAL) CBC (with Diff) (06/13/2024 2:26 [...] EST Shahnaz Scanlon MD HEMATOLOGY ORDERABLE S [facility] [place] [address] * Magnesium (06/13/2024 2:26 AM EST) Magnesium 0.78 0.69 - 1.07 mMol/L 06/13/2024 2:58 AM [facility] Blood VENOUS BLOOD SPECIMEN / Unknown Venipuncture / Unknown 06/13/2024 2:26 AM EST 06/13/2024 2:31 AM EST Shahnaz Scanlon MD CHEMISTRY ORDERABLES [facility] [place] [address] * (ABNORMAL) Basic Metabolic Panel (06/13/2024 2:26 [...] mL/min/1. 73 m?? 06/13/2024 2:58 AM EST [facility] Comment: This patient's estimated GFR [...] City/[facility]/ZIP Co de Phone Number [facility] [place] [address] * POC, GLUCOSE (06/12/2024 11:53 PM EST) Glucometer, POC 141 65 - 199 mg/dL 06/12/2024 11:54 PM EST [facility] Comment:Supplemental ranges: <140 mg/dL before meals <180 mg/dL all other times of the day. Blood CAPILLARY BLOOD / Unknown 06/12/2024 11:53 PM EST 06/12/2024 11:54 PM EST Ethel Carrillo MD POINT OF CARE TEST O RDERABLES [facility] [place] [address] * POC, GLUCOSE (06/12/2024 7:32 PM EST) Glucometer, POC 158 65 - 199 mg/dL 06/12/2024 7:32 PM EST [facility] Comment:Supplemental ranges: <140 mg/dL before meals <180 mg/dL all other times of the day. Blood CAPILLARY BLOOD / Unknown 06/12/2024 7:32 PM EST 06/12/2024 7:32 PM EST Ethel Carrillo MD POINT OF CARE TEST O NIKA Performing Organization Address City/[facility]/ZIP Co de Phone Number [facility] [place] [address] * POC, GLUCOSE (06/12/2024 3:41 PM EST) Glucometer, POC 113 65 - 199 mg/dL 06/12/2024 3:41 PM EST [facility] Comment:Supplemental ranges: <140 mg/dL before meals <180 mg/dL all other times of the day. Blood CAPILLARY BLOOD / Unknown 06/12/2024 3:41 PM EST 06/12/2024 3:41 PM EST Ethel Carrillo MD POINT OF CARE TEST Abimael MAHER Performing Organization Address [facility]/ZIP Co de Phone Number [facility] [place] [address] * Potassium (06/12/2024 2:19 PM EST) [facility] Potassium 4.5 3.5 - 5.0 mMol/L 06/12/2024 2:45 PM EST [facility] Blood VENOUS BLOOD SPECIMEN / Unknown Venipuncture / Unknown 06/12/2024 2:19 PM EST 06/12/2024 2:23 PM EST Shahnaz Scanlon MD CHEMISTRY ORDERABLES Performing Organization Address City/[facility]/ZIP Co de Phone Number [facility] [place] [address] * (ABNORMAL) POC, GLUCOSE (06/12/2024 11:21 AM EST) Glucometer, POC 207(H) 65 - 199 mg/dL 06/12/2024 11:21 AM EST [facility] Comment:Supplemental ranges: <140 mg/dL before meals <180 mg/dL all other times of the day. Blood CAPILLARY BLOOD / Unknown 06/12/2024 11:21 AM EST 06/12/2024 11:22 AM EST Ethel Carrillo MD POINT OF CARE TEST O NIKA Performing Organization Address City/[facility]/ZIP Co de Phone Number [facility] [place] [address] * POC, GLUCOSE (06/12/2024 8:00 AM EST) Glucometer, POC 169 65 - 199 mg/dL 06/12/2024 8:01 AM EST [facility] Comment:Supplemental ranges: <140 mg/dL before meals <180 mg/dL all other times of the day. Blood CAPILLARY BLOOD / Unknown 06/12/2024 8:00 AM EST 06/12/2024 8:01 AM EST Ethel Carrillo MD POINT OF CARE TEST O NIKA Performing Organization Address City/[facility]/ZIP Co de Phone Number [facility] [place] [address] * POC, GLUCOSE (06/12/2024 4:25 AM EST) Glucometer, POC 132 65 - 199 mg/dL 06/12/2024 4:26 AM EST [facility] Comment:Supplemental ranges: <140 mg/dL before meals <180 mg/dL all other times of the day. Blood CAPILLARY BLOOD / Unknown 06/12/2024 4:25 AM EST 06/12/2024 4:26 AM EST Ethel Carrillo MD POINT OF CARE TEST O NIKA [facility] [place] [address] * Heparin (unfractionated) Level (06/12/2024 3:03 AM EST) UF Heparin 0.55 IU/mL 06/12/2024 3:44 AM EST [facility] Comment: Heparin (anti-Xa) levels should [...] [facility] Co de Phone Number [facility] [place] [address] * (ABNORMAL) CBC (with Diff) (06/12/2024 3:03 AM EST) Pathologist [facility] White Blood Cell 9.69(H) 4.00 - 9.50 x10(3)/mc L 06/12/2024 3:36 AM EST [facility] Red Blood Cell 5.05 4.58 - 5.54 x10(6)/mc L 06/12/2024 3:36 AM EST [facility] Hemoglobin 15.2 13.7 - 16.5 [...] EST Shahnaz Scanlon MD HEMATOLOGY ORDERABLE S [facility] [place] [address] * Magnesium (06/12/2024 3:03 AM EST) Magnesium 0.79 0.69 - 1.07 mMol/L 06/12/2024 4:01 AM [facility] Blood VENOUS BLOOD SPECIMEN / Unknown Venipuncture / Unknown 06/12/2024 3:03 AM EST 06/12/2024 3:30 AM EST Shahnaz Scanlon MD CHEMISTRY ORDERABLES [facility] [place] [address] * (ABNORMAL) Basic Metabolic Panel (06/12/2024 3:03 [...] AM EST Shahnaz Scanlon MD CHEMISTRY ORDERABLES [facility] [place] [address] * POC, GLUCOSE (06/11/2024 11:56 PM EST) Glucometer, POC 135 65 - 199 mg/dL 06/11/2024 11:56 PM EST [facility] Comment:Supplemental ranges: <140 mg/dL before meals <180 mg/dL all other times of the day. Blood CAPILLARY BLOOD / Unknown 06/11/2024 11:56 PM EST 06/11/2024 11:56 PM EST Ethel Carrillo MD POINT OF CARE TEST O RDERAPIETER Performing Organization Address [facility] de Phone Number [facility] [place] [address] * (ABNORMAL) POC, GLUCOSE (06/11/2024 8:25 PM EST) Glucometer, POC 210(H) 65 - 199 mg/dL 06/11/2024 8:26 PM EST [facility] Comment:Supplemental ranges: <140 mg/dL before meals <180 mg/dL all other times of the day. Blood CAPILLARY BLOOD / Unknown 06/11/2024 8:25 PM EST 06/11/2024 8:26 PM EST Ethel Carrillo MD POINT OF CARE TEST O NIKA Performing Organization Address [facility] Co de Phone Number [facility] [place] [address] * POC, GLUCOSE (06/11/2024 4:24 PM EST) Glucometer, POC 81 65 - 199 mg/dL 06/11/2024 4:24 PM EST [facility] Comment:Supplemental ranges: <140 mg/dL before meals <180 mg/dL all other times of the day. Blood CAPILLARY BLOOD / Unknown 06/11/2024 4:24 PM EST 06/11/2024 4:25 PM EST Ethel Carrillo MD POINT OF CARE TEST O NIKA Performing Organization Address [facility] de Phone Number [facility] [place] [address] * (ABNORMAL) POC, GLUCOSE (06/11/2024 11:08 AM EST) Glucometer, POC 233(H) 65 - 199 mg/dL 06/11/2024 11:08 AM EST [facility] Comment:Supplemental ranges: <140 mg/dL before meals <180 mg/dL all other times of the day. Blood CAPILLARY BLOOD / Unknown 06/11/2024 11:08 AM EST 06/11/2024 11:08 AM EST Ethel Carrillo MD POINT OF CARE TEST O NIKA Performing Organization Address [facility] de Phone Number [facility] [place] [address] * POC, GLUCOSE (06/11/2024 7:48 AM EST) Glucometer, POC 184 65 - 199 mg/dL 06/11/2024 7:49 AM EST [facility] Comment:Supplemental ranges: <140 mg/dL before meals <180 mg/dL all other times of the day. Blood CAPILLARY BLOOD / Unknown 06/11/2024 7:48 AM EST 06/11/2024 7:49 AM EST Melida Valdes MD POINT OF CARE TEST O NIKA Performing Organization Address [facility] Co de Phone Number [facility] [place] [address] * Heparin (unfractionated) Level (06/11/2024 5:31 AM EST) UF Heparin 0.55 IU/mL 06/11/2024 6:10 AM EST [facility] Comment: Heparin (anti-Xa) levels should [...] ORDERABLE S Performing Organization Address [facility] Co de Phone Number [facility] [place] [address] * POC, GLUCOSE (06/11/2024 3:57 AM EST) Glucometer, POC 132 65 - 199 mg/dL 06/11/2024 3:58 AM EST [facility] Comment:Supplemental ranges: <140 mg/dL before meals <180 mg/dL all other times of the day. Blood CAPILLARY BLOOD / Unknown 06/11/2024 3:57 AM EST 06/11/2024 3:58 AM EST Melida Valdes MD POINT OF CARE TEST O RDERABLES Performing Organization Address [facility] Co de Phone Number [facility] [place] [address] * (ABNORMAL) CBC (with Diff) (06/11/2024 2:13 [...] % 33.5 % 06/11/2024 2:26 AM EST [facility] Lymph Absolute 3.32(H) 0.90 - 3.20 x10(3)/mc L 06/11/2024 2:26 AM EST [facility] Monocyte % 10.9 % 06/11/2024 2:26 AM [facility] Monocyte Absolute 1.08(H) 0.30 - 0.90 x10(3)/mc L 06/11/2024 2:26 AM EST [facility] Eos % 4.1 % 06/11/2024 [...] EST Shahnaz Scanlon MD HEMATOLOGY ORDERABLE S [facility] [place] [address] * Magnesium (06/11/2024 2:13 AM EST) Magnesium 0.83 0.69 - 1.07 mMol/L 06/11/2024 2:51 AM [facility] Blood VENOUS BLOOD SPECIMEN / Unknown Venipuncture / Unknown 06/11/2024 2:13 AM EST 06/11/2024 2:19 AM EST Shahnaz Scanlon MD CHEMISTRY ORDERABLES [facility] [place] [address] * (ABNORMAL) Basic Metabolic Panel (06/11/2024 2:13 AM EST) Glucose 148 65 - 199 mg/dL 06/11/2024 2:51 AM EST [facility] Comment:Glucose Concentratio n >=200 mg/dL plus symptoms is consistent with Diabetes Mellitus. Blood Urea Nitrogen 24(H) 10 - 20 mg/dL 06/11/2024 2:51 AM [facility] Creatinine 1.06 0.80 - 1.50 mg/dL 06/11/2024 2:51 AM [facility] Sodium 134(L) 135 - 145 mMol/L 06/11/2024 2:51 AM EST [facility] Potassium 4.1 3.5 - 5.0 mMol/L 06/11/2024 2:51 AM [facility] Chloride 96(L) 98 - 107 mMol/L 06/11/2024 2:51 AM [facility] Carbon Dioxide 28 22 - 31 mMol/L 06/11/2024 2:51 AM EST [facility] Anion Gap 10 5 - 15 mMol/L 06/11/2024 2:51 AM [facility] Calcium 9.4 8.5 - 10.5 mg/dL 06/11/2024 2:51 AM EST [facility] Est Glomerular Filtration Rate - [...] CHEMISTRY ORDERABLES Performing Organization Address [facility] Co de Phone Number [facility] [place] [address] * POC, GLUCOSE (06/11/2024 12:50 AM EST) Glucometer, POC 144 65 - 199 mg/dL 06/11/2024 12:51 AM EST [facility] Comment:Supplemental ranges: <140 mg/dL before meals <180 mg/dL all other times of the day. Blood CAPILLARY BLOOD / Unknown 06/11/2024 12:50 AM EST 06/11/2024 12:51 AM EST Melida Valdes MD POINT OF CARE TEST O RDERAPIETER Performing Organization Address [facility] Co de Phone Number [facility] [place] [address] * (ABNORMAL) POC, GLUCOSE (06/10/2024 7:22 PM EST) Glucometer, POC 236(H) 65 - 199 mg/dL 06/10/2024 7:22 PM EST [facility] Comment:Supplemental ranges: <140 mg/dL before meals <180 mg/dL all other times of the day. Blood CAPILLARY BLOOD / Unknown 06/10/2024 7:22 PM EST 06/10/2024 7:22 PM EST Melida Valdes MD POINT OF CARE TEST O RDERABLES [facility] [place] [address] * (ABNORMAL) Blood Gas, Venous (06/10/2024 5:42 PM EST) pH, Venous 7.34 7.32 - 7.42 06/10/2024 5:50 PM EST [facility] PCO2, Venous 52 38 - 58 mmHg 06/10/2024 5:50 PM EST [facility] PO2, Venous 24 16 - 65 mmHg 06/10/2024 5:50 PM EST [facility] Bicarbonate, Venous 27.4 22 - [...] 0.5 <=1.5 % 06/10/2024 5:50 PM EST [facility] Sodium, Venous 137 135 - 145 mmol/L 06/10/2024 5:50 PM EST [facility] Chloride, Venous 96(L) 98 - 107 mmol/L 06/10/2024 5:50 PM EST [facility] Potassium, Venous 4.6 3.5 - 5.0 mmol/L 06/10/2024 5:50 PM EST [facility] Ionized Calcium, Venous 1.23 1.15 - 1.33 mmol/L 06/10/2024 5:50 PM EST [facility] Glucose, Venous 114 65 - 199 mg/dL 06/10/2024 5:50 PM EST [facility] Comment:Glucose Concentratio n >=200 mg/dL plus symptoms is consistent with Diabetes Mellitus. Lactate, Venous 1.1 0.5 - 2.2 mmol/L 06/10/2024 5:50 PM EST [facility] Blood Gas Source Venous 06/10/20 5:50 PM [facility] Blood VENOUS BLOOD SPECIMEN / Unknown Blood Gas Venous / Unknown 06/10/2024 5:42 PM EST 06/10/2024 5:47 PM EST Melida Valdes MD CHEMISTRY ORDERABLES Performing Organization Address [facility] Co de Phone Number [facility] [place] [address] * POC, GLUCOSE (06/10/2024 5:35 PM EST) Glucometer, POC 123 65 - 199 mg/dL 06/10/2024 5:35 PM EST [facility] Comment:Supplemental ranges: <140 mg/dL before meals <180 mg/dL all other times of the day. Blood CAPILLARY BLOOD / Unknown 06/10/2024 5:35 PM EST 06/10/2024 5:35 PM EST Melida Valdes MD POINT OF CARE TEST O RDERABLES [facility] [place] [address] * (ABNORMAL) POC, GLUCOSE (06/10/2024 11:25 AM EST) Glucometer, POC 216(H) 65 - 199 mg/dL 06/10/2024 11:25 AM EST [facility] Comment:Supplemental ranges: <140 mg/dL before meals <180 mg/dL all other times of the day. Blood CAPILLARY BLOOD / Unknown 06/10/2024 11:25 AM EST 06/10/2024 11:25 AM EST Melida Valdes MD POINT OF CARE TEST O NIKA Performing Organization Address [facility] Co de Phone Number [facility] [place] [address] * (ABNORMAL) POC, GLUCOSE (06/10/2024 7:46 AM EST) Glucometer, POC 206(H) 65 - 199 mg/dL 06/10/2024 7:46 AM EST [facility] Comment:Supplemental ranges: <140 mg/dL before meals <180 mg/dL all other times of the day. Blood CAPILLARY BLOOD / Unknown 06/10/2024 7:46 AM EST 06/10/2024 7:46 AM EST Melida Valdes MD POINT OF CARE TEST O NIKA Performing Organization Address [facility] Co de Phone Number [facility] [place] [address] * POC, GLUCOSE (06/10/2024 4:23 AM EST) Glucometer, POC 154 65 - 199 mg/dL 06/10/2024 4:24 AM EST [facility] Comment:Supplemental ranges: <140 mg/dL before meals <180 mg/dL all other times of the day. Blood CAPILLARY BLOOD / Unknown 06/10/2024 4:23 AM EST 06/10/2024 4:24 AM EST Melida Valdes MD POINT OF CARE TEST O NIKA Performing Organization Address [facility] Co de Phone Number [facility] [place] [address] * (ABNORMAL) CBC (with Diff) (06/10/2024 1:55 [...] % 34.9 % 06/10/2024 2:14 AM EST [facility] Lymph Absolute 3.14 0.90 - 3.20 x10(3)/mc L 06/10/2024 2:14 AM [facility] Monocyte % 11.2 % 06/10/2024 2:14 AM [facility] Monocyte Absolute 1.01(H) 0.30 - 0.90 x10(3)/mc L 06/10/2024 2:14 AM EST [facility] Eos % 3.6 % 06/10/2024 [...] EST Shahnaz Scanlon MD HEMATOLOGY ORDERABLE S [facility] [place] [address] * Magnesium (06/10/2024 1:55 AM EST) Magnesium 0.83 0.69 - 1.07 mMol/L 06/10/2024 2:37 AM [facility] Blood VENOUS BLOOD SPECIMEN / Unknown Venipuncture / Unknown 06/10/2024 1:55 AM EST 06/10/2024 2:05 AM EST Shahnaz Scanlon MD CHEMISTRY ORDERABLES [facility] [place] [address] * (ABNORMAL) Basic Metabolic Panel (06/10/2024 1:55 AM EST) Glucose 140 65 - 199 mg/dL 06/10/2024 2:37 AM EST [facility] Comment:Glucose Concentratio n >=200 [...] CHEMISTRY ORDERABLES Performing Organization Address [facility] Co de Phone Number [facility] [place] [address] * Heparin (unfractionated) Level (06/10/2024 1:54 AM EST) UF Heparin 0.56 IU/mL 06/10/2024 2:41 AM EST [facility] Comment: Heparin (anti-Xa) levels should [...] ORDERABLE S Performing Organization Address [facility]/ZIP Co de Phone Number [facility] [place] [address] * POC, GLUCOSE (06/10/2024 12:05 AM EST) Glucometer, POC 125 65 - 199 mg/dL 06/10/2024 12:05 AM EST [facility] Comment:Supplemental ranges: <140 mg/dL before meals <180 mg/dL all other times of the day. Blood CAPILLARY BLOOD / Unknown 06/10/2024 12:05 AM EST 06/10/2024 12:05 AM EST Melida Valdes MD POINT OF CARE TEST O NIKA Performing Organization Address City/[facility]/ZIP Co de Phone Number [facility] [place] [address] * POC, GLUCOSE (06/09/2024 8:36 PM EST) Glucometer, POC 197 65 - 199 mg/dL 06/09/2024 8:36 PM EST [facility] Comment:Supplemental ranges: <140 mg/dL before meals <180 mg/dL all other times of the day. Blood CAPILLARY BLOOD / Unknown 06/09/2024 8:36 PM EST 06/09/2024 8:36 PM EST Melida Valdes MD POINT OF CARE TEST O NIKA Performing Organization Address [facility]/ZIP Co de Phone Number [facility] [place] [address] * POC, GLUCOSE (06/09/2024 5:27 PM EST) Glucometer, POC 174 65 - 199 mg/dL 06/09/2024 5:28 PM EST [facility] Comment:Supplemental ranges: <140 mg/dL before meals <180 mg/dL all other times of the day. Blood CAPILLARY BLOOD / Unknown 06/09/2024 5:27 PM EST 06/09/2024 5:28 PM EST Melida Valdes MD POINT OF CARE TEST O RDERABLES Performing Organization Address [facility] Co de Phone Number [facility] [place] [address] * (ABNORMAL) POC, GLUCOSE (06/09/2024 11:52 AM EST) Glucometer, POC 211(H) 65 - 199 mg/dL 06/09/2024 11:52 AM EST [facility] Comment:Supplemental ranges: <140 mg/dL before meals <180 mg/dL all other times of the day. Blood CAPILLARY BLOOD / Unknown 06/09/2024 11:52 AM EST 06/09/2024 11:52 AM EST Melida Valdes MD POINT OF CARE TEST O RDERABLES Performing Organization Address [facility] Co de Phone Number [facility] [place] [address] * Potassium (06/09/2024 8:25 AM EST) Potassium 4.6 3.5 - 5.0 mMol/L 06/09/2024 10:09 AM EST [facility] Blood VENOUS BLOOD SPECIMEN / Unknown Venipuncture / Unknown 06/09/2024 8:25 AM EST 06/09/2024 8:42 AM EST Shahnaz Scanlon MD CHEMISTRY ORDERABLES Performing Organization Address City/[facility] Co de Phone Number [facility] [place] [address] * (ABNORMAL) POC, GLUCOSE (06/09/2024 8:10 AM EST) Glucometer, POC 209(H) 65 - 199 mg/dL 06/09/2024 8:10 AM EST [facility] Comment:Supplemental ranges: <140 mg/dL before meals <180 mg/dL all other times of the day. Blood CAPILLARY BLOOD / Unknown 06/09/2024 8:10 AM EST 06/09/2024 8:11 AM EST Melida Valdes MD POINT OF CARE TEST O RDBECKIE Performing Organization Address [facility] Co de Phone Number [facility] [place] [address] * POC, GLUCOSE (06/09/2024 4:40 AM EST) Glucometer, POC 131 65 - 199 mg/dL 06/09/2024 4:40 AM EST [facility] Comment:Supplemental ranges: <140 mg/dL before meals <180 mg/dL all other times of the day. Blood CAPILLARY BLOOD / Unknown 06/09/2024 4:40 AM EST 06/09/2024 4:41 AM EST Melida Valdes MD POINT OF CARE TEST O NIKA Performing Organization Address [facility] Co de Phone Number [facility] [place] [address] * Heparin (unfractionated) Level (06/09/2024 2:12 AM EST) UF Heparin 0.55 IU/mL 06/09/2024 2:33 AM EST [facility] Comment: Heparin (anti-Xa) levels should [...] EST Shahnaz Scanlon MD HEMATOLOGY ORDERABLE S [facility] [place] [address] * (ABNORMAL) CBC (with Diff) (06/09/2024 2:12 [...] - 0.04 x10(3)/mc L 06/09/2024 2:44 AM [facility] Blood VENOUS BLOOD SPECIMEN / Unknown Venipuncture / Unknown 06/09/2024 2:12 AM EST 06/09/2024 2:21 AM EST Shahnaz Scanlon MD HEMATOLOGY ORDERABLE S [facility] [place] [address] * Magnesium (06/09/2024 2:12 AM EST) Pathologist [facility] Magnesium 0.83 0.69 - 1.07 mMol/L 06/09/2024 2:52 AM EST [facility] Blood VENOUS BLOOD SPECIMEN / Unknown Venipuncture / Unknown 06/09/2024 2:12 AM EST 06/09/2024 2:22 AM EST Shahnaz Scanlon MD CHEMISTRY ORDERABLES Performing Organization Address City/[facility]/ZIP Co de Phone Number [facility] [place] [address] * (ABNORMAL) Basic Metabolic Panel (06/09/2024 2:12 AM EST) [facility] Glucose 147 65 - 199 mg/dL 06/09/2024 [...] 22 - 31 mMol/L 06/09/2024 2:52 AM [facility] Anion Gap 11 5 - 15 mMol/L 06/09/2024 2:52 AM [facility] Calcium 9.7 8.5 - 10.5 mg/dL 06/09/2024 2:52 AM EST [facility] Est Glomerular Filtration Rate - Male 73 mL/min/1. 73 m?? 06/09/2024 2:52 AM EST [facility] Comment: This patient's estimated GFR [...] City/[facility]/ZIP Co de Phone Number [facility] [place] [address] * POC, GLUCOSE (06/09/2024 12:34 AM EST) Glucometer, POC 186 65 - 199 mg/dL 06/09/2024 12:34 AM EST [facility] Comment:Supplemental ranges: <140 mg/dL before meals <180 mg/dL all other times of the day. Blood CAPILLARY BLOOD / Unknown 06/09/2024 12:34 AM EST 06/09/2024 12:34 AM EST Melida Valdes MD POINT OF CARE TEST O RDERABLES Performing Organization Address City/[facility]/ZIP Co de Phone Number [facility] [place] [address] * POC, GLUCOSE (06/08/2024 8:27 PM EST) Glucometer, POC 176 65 - 199 mg/dL 06/08/2024 8:28 PM EST [facility] Comment:Supplemental ranges: <140 mg/dL before meals <180 mg/dL all other times of the day. Blood CAPILLARY BLOOD / Unknown 06/08/2024 8:27 PM EST 06/08/2024 8:28 PM EST Melida Valdes MD POINT OF CARE TEST O NIKA Performing Organization Address City/[facility] Co de Phone Number [facility] [place] [address] * POC, GLUCOSE (06/08/2024 4:16 PM EST) Glucometer, POC 159 65 - 199 mg/dL 06/08/2024 4:16 PM EST [facility] Comment:Supplemental ranges: <140 mg/dL before meals <180 mg/dL all other times of the day. Blood CAPILLARY BLOOD / Unknown 06/08/2024 4:16 PM EST 06/08/2024 4:16 PM EST Melida Valdes MD POINT OF CARE TEST O NIKA Performing Organization Address [facility] Co de Phone Number [facility] [place] [address] * (ABNORMAL) POC, GLUCOSE (06/08/2024 12:35 PM EST) Glucometer, POC 226(H) 65 - 199 mg/dL 06/08/2024 12:35 PM EST [facility] Comment:Supplemental ranges: <140 mg/dL before meals <180 mg/dL all other times of the day. Blood CAPILLARY BLOOD / Unknown 06/08/2024 12:35 PM EST 06/08/2024 12:35 PM EST Melida Valdes MD POINT OF CARE TEST O NIKA Performing Organization Address City/[facility]/ZIP Co de Phone Number [facility] [place] [address] * POC, GLUCOSE (06/08/2024 8:10 AM EST) Glucometer, POC 190 65 - 199 mg/dL 06/08/2024 8:14 AM EST [facility] Comment:Supplemental ranges: <140 mg/dL before meals <180 mg/dL all other times of the day. Blood CAPILLARY BLOOD / Unknown 06/08/2024 8:10 AM EST 06/08/2024 8:14 AM EST Melida Valdes MD POINT OF CARE TEST O NIKA Performing Organization Address City/[facility]/ZIP Co de Phone Number [facility] [place] [address] * POC, GLUCOSE (06/08/2024 4:09 AM EST) Glucometer, POC 151 65 - 199 mg/dL 06/08/2024 4:10 AM EST [facility] Comment:Supplemental ranges: <140 mg/dL before meals <180 mg/dL all other times of the day. Blood CAPILLARY BLOOD / Unknown 06/08/2024 4:09 AM EST 06/08/2024 4:10 AM EST Melida Valdes MD POINT OF CARE TEST Abimael MAHER Performing Organization Address City/[facility]/ZIP Co de Phone Number [facility] [place] [address] * Heparin (unfractionated) Level (06/08/2024 3:21 AM EST) UF Heparin 0.46 IU/mL 06/08/2024 3:41 AM EST [facility] Comment: Heparin (anti-Xa) levels should [...] EST Shahnaz Scanlon MD HEMATOLOGY ORDERABLE S [facility] [place] [address] * (ABNORMAL) CBC (with Diff) (06/08/2024 3:21 AM EST) White Blood Cell 9.92(H) 4.00 - 9.50 x10(3)/mc L 06/08/2024 3:34 AM [facility] Red Blood Cell 5.09 4.58 - 5.54 x10(6)/mc L 06/08/2024 3:34 AM [facility] Hemoglobin 15.1 13.7 - 16.5 [...] Gran % 0.5 % 3:34 AM EST [facility] Immature Gran Absolute 0.05(H) 0.00 - 0.04 x10(3)/mc L 06/08/2024 3:34 AM [facility] Blood VENOUS BLOOD SPECIMEN / Unknown Venipuncture / Unknown 06/08/2024 3:21 AM EST 06/08/2024 3:27 AM EST Shahnaz Scanlon MD HEMATOLOGY ORDERABLE S Performing Organization Address [facility] Co de Phone Number [facility] [place] [address] * Magnesium (06/08/2024 3:21 AM EST) Magnesium 0.84 0.69 - 1.07 mMol/L 06/08/2024 3:59 AM [facility] Blood VENOUS BLOOD SPECIMEN / Unknown Venipuncture / Unknown 06/08/2024 3:21 AM EST 06/08/2024 3:27 AM EST Shahnaz Scanlon MD CHEMISTRY ORDERABLES Performing Organization Address [facility] Co de Phone Number [facility] [place] [address] * (ABNORMAL) Basic Metabolic Panel (06/08/2024 3:21 [...] - 5.0 mMol/L 06/08/2024 3:59 AM EST [facility] Chloride 98 98 - 107 [...] AM EST Shahnaz Scanlon MD CHEMISTRY ORDERABLES [facility] [place] [address] * POC, GLUCOSE (06/07/2024 11:57 PM EST) Glucometer, POC 188 65 - 199 mg/dL 06/07/2024 11:57 PM EST [facility] Comment:Supplemental ranges: <140 mg/dL before meals <180 mg/dL all other times of the day. Blood CAPILLARY BLOOD / Unknown 06/07/2024 11:57 PM EST 06/07/2024 11:58 PM EST Melida Valdes MD POINT OF CARE TEST O NIKA Performing Organization Address [facility] Co de Phone Number [facility] [place] [address] * POC, GLUCOSE (06/07/2024 8:05 PM EST) Glucometer, POC 118 65 - 199 mg/dL 06/07/2024 8:06 PM EST [facility] Comment:Supplemental ranges: <140 mg/dL before meals <180 mg/dL all other times of the day. Blood CAPILLARY BLOOD / Unknown 06/07/2024 8:05 PM EST 06/07/2024 8:06 PM EST Melida Valdes MD POINT OF CARE TEST Abimael MAHER Performing Organization Address [facility] Co de Phone Number [facility] [place] [address] * Potassium (06/07/2024 5:22 PM EST) Potassium 4.6 3.5 - 5.0 mMol/L 06/07/2024 5:59 PM EST [facility] Blood VENOUS BLOOD SPECIMEN / Unknown Venipuncture / Unknown 06/07/2024 5:22 PM EST 06/07/2024 5:26 PM EST Shahnaz Scanlon MD CHEMISTRY ORDERABLES Performing Organization Address City/[facility] Co de Phone Number [facility] [place] [address] * POC, GLUCOSE (06/07/2024 4:31 PM EST) Glucometer, POC 174 65 - 199 mg/dL 06/07/2024 4:34 PM EST [facility] Comment:Supplemental ranges: <140 mg/dL before meals <180 mg/dL all other times of the day. Blood CAPILLARY BLOOD / Unknown 06/07/2024 4:31 PM EST 06/07/2024 4:34 PM EST Melida Valdes MD POINT OF CARE TEST O RDERABLES [facility] [place] [address] * MRI Cardiac Morphology Function wwo Contrast (06/07/2024 1:10 PM EST) WORKSTATION ID [id number] DH RAD Anatomical Region Laterality Modality Magnetic [...] - Mildly dilated left ventricle size with ykguerrx-pp-tpuiahzb decreased LV systolic function. ??LV ejection fraction [...] who have questions please contact the health animal caretaker supervisor that requested your imaging first. ? [...] VENTRICLE: Mildly dilated left ventricle size with fnlxddmg-to-kgjbdeqf decreased LV systolic function. ??LV ejection fraction [...] VENTRICLE: Mildly dilated left ventricle size with nuvyqtlb-ml-vaorowuq decreasedLV systolic function. LV ejection fraction is [...] - Mildly dilated left ventricle size with yfytdzbh-rf-zxgqwsjp decreasedLV systolic function. LV ejection fraction is [...] patients who have questions please contactthe health animal caretaker supervisor that requested your imaging first. Delroy Fofana MD IMG MRI ORDERABLES * (ABNORMAL) POC, GLUCOSE (06/07/2024 11:05 AM EST) [facility] Glucometer, POC 221(H) 65 - 199 mg/dL 06/07/2024 11:06 AM EST [facility] Comment:Supplemental ranges: <140 mg/dL before meals <180 mg/dL all other times of the day. Blood CAPILLARY BLOOD / Unknown 06/07/2024 11:05 AM EST 06/07/2024 11:06 AM EST Melida Valdes MD POINT OF CARE TEST O NIKA Performing Organization Address City/[facility]/ZIP Co de Phone Number [facility] [place] [address] * (ABNORMAL) POC, GLUCOSE (06/07/2024 11:03 AM EST) Glucometer, POC 250(H) 65 - 199 mg/dL 06/07/2024 11:04 AM EST [facility] Comment:Supplemental ranges: <140 mg/dL before meals <180 mg/dL all other times of the day. Blood CAPILLARY BLOOD / Unknown 06/07/2024 11:03 AM EST 06/07/2024 11:04 AM EST Melida Valdes MD POINT OF CARE TEST O NIKA Performing Organization Address City/[facility]/ZIP Co de Phone Number [facility] [place] [address] * Potassium (06/07/2024 9:44 AM EST) Potassium 4.7 3.5 - 5.0 mMol/L 06/07/2024 10:23 AM EST [facility] Blood VENOUS BLOOD SPECIMEN / Unknown Venipuncture / Unknown 06/07/2024 9:44 AM EST 06/07/2024 9:57 AM EST Shahnaz Scanlon MD CHEMISTRY ORDERABLES Performing Organization Address City/[facility]/ZIP Co de Phone Number [facility] [place] [address] * POC, GLUCOSE (06/07/2024 7:45 AM EST) Glucometer, POC 175 65 - 199 mg/dL 06/07/2024 7:45 AM EST [facility] Comment:Supplemental ranges: <140 mg/dL before meals <180 mg/dL all other times of the day. Blood CAPILLARY BLOOD / Unknown 06/07/2024 7:45 AM EST 06/07/2024 7:46 AM EST Melida Valdes MD POINT OF CARE TEST O RDERABLES [facility] [place] [address] * XR Chest PA & Lateral (Generic) (06/07/2024 7:03 AM EST) WORKSTATION ID [id number] RAD Anatomical Region Laterality Modality Chest N/A [...] who have questions please contact the health animal caretaker supervisor that requested your imaging first. ? Electronically signed by: Stuart Aponte MD, [facility] ??([phone]), at 06/07/2024 10:45 AM Narrative 06/07/2024 10:45 [...] patients who have questions please contactthe health animal caretaker supervisor that requested your imaging first. Shahnaz Scanlon MD IMG DX ORDERABLES * POC, GLUCOSE (06/07/2024 4:25 AM EST) [facility] Glucometer, POC 127 65 - 199 mg/dL 06/07/2024 4:26 AM EST [facility] Comment:Supplemental ranges: <140 mg/dL before meals <180 mg/dL all other times of the day. Blood CAPILLARY BLOOD / Unknown 06/07/2024 4:25 AM EST 06/07/2024 4:26 AM EST Melida Valdes MD POINT OF CARE TEST O RDERABLES [facility] [place] [address] * Heparin (unfractionated) Level (06/07/2024 2:41 AM EST) Pathologist [facility] UF Heparin 0.45 IU/mL 06/07/2024 3:03 AM EST [facility] Comment: Heparin (anti-Xa) levels should [...] [facility] Co de Phone Number [facility] [place] [address] * (ABNORMAL) CBC (with Diff) (06/07/2024 2:41 AM EST) [facility] White Blood Cell 10.06(H) 4.00 - 9.50 x10(3)/mc L 06/07/2024 2:58 AM EST [facility] Red Blood Cell 5.02 4.58 - 5.54 x10(6)/mc L 06/07/2024 2:58 AM EST [facility] Hemoglobin 14.8 13.7 - 16.5 g/dL 06/07/2024 2:58 AM EST [facility] Hematocrit 46.2 40.5 - 48.5 % 06/07/2024 2:58 AM EST [facility] Mean Cell Volume 92.0 82.9 [...] % 3.6 % 06/07/2024 2:58 AM EST [facility] Eos Absolute 0.36 0.00 - 0.40 x10(3)/mc L 06/07/2024 2:58 AM EST [facility] Basophil % 0.8 % 06/07/2024 2:58 AM [facility] Baso Absolute 0.08 0.00 - 0.10 x10(3)/mc L 06/07/2024 2:58 AM EST [facility] Immature Gran % 0.6 % 2:58 AM [facility] Immature Gran Absolute 0.06(H) 0.00 - 0.04 x10(3)/mc L 06/07/2024 2:58 AM [facility] Blood VENOUS BLOOD SPECIMEN / Unknown Venipuncture / Unknown 06/07/2024 2:41 AM EST 06/07/2024 2:52 AM EST Shahnaz Scanlon MD HEMATOLOGY ORDERABLE S [facility] [place] [address] * Magnesium (06/07/2024 2:41 AM EST) Magnesium 0.92 0.69 - 1.07 mMol/L 06/07/2024 3:25 AM EST [facility] Blood VENOUS BLOOD SPECIMEN / Unknown Venipuncture / Unknown 06/07/2024 2:41 AM EST 06/07/2024 2:51 AM EST Shahnaz Scanlon MD CHEMISTRY ORDERABLES [facility] [place] [address] * (ABNORMAL) Basic Metabolic Panel (06/07/2024 2:41 [...] CHEMISTRY ORDERABLES Performing Organization Address [facility] Co de Phone Number [facility] [place] [address] * POC, GLUCOSE (06/07/2024 12:08 AM EST) Glucometer, POC 182 65 - 199 mg/dL 06/07/2024 12:09 AM EST [facility] Comment:Supplemental ranges: <140 mg/dL before meals <180 mg/dL all other times of the day. Blood CAPILLARY BLOOD / Unknown 06/07/2024 12:08 AM EST 06/07/2024 12:09 AM EST Melida Valdes MD POINT OF CARE TEST O NIKA Performing Organization Address [facility] de Phone Number [facility] [place] [address] * POC, GLUCOSE (06/06/2024 8:18 PM EST) Glucometer, POC 143 65 - 199 mg/dL 06/06/2024 8:19 PM EST [facility] Comment:Supplemental ranges: <140 mg/dL before meals <180 mg/dL all other times of the day. Blood CAPILLARY BLOOD / Unknown 06/06/2024 8:18 PM EST 06/06/2024 8:19 PM EST Melida Valdes MD POINT OF CARE TEST O NIKA Performing Organization Address [facility] Co de Phone Number [facility] [place] [address] * POC, GLUCOSE (06/06/2024 3:39 PM EST) Glucometer, POC 147 65 - 199 mg/dL 06/06/2024 3:40 PM EST [facility] Comment:Supplemental ranges: <140 mg/dL before meals <180 mg/dL all other times of the day. Blood CAPILLARY BLOOD / Unknown 06/06/2024 3:39 PM EST 06/06/2024 3:40 PM EST Melida Valdes MD POINT OF CARE TEST O NIKA Performing Organization Address City/[facility]/ZIP Co de Phone Number [facility] [place] [address] * Potassium (06/06/2024 2:37 PM EST) Potassium 4.3 3.5 - 5.0 mMol/L 06/06/2024 3:01 PM EST [facility] Blood VENOUS BLOOD SPECIMEN / Unknown Venipuncture / Unknown 06/06/2024 2:37 PM EST 06/06/2024 2:42 PM EST Shahnaz Scanlon MD CHEMISTRY ORDERABLES Performing Organization Address [facility] Co de Phone Number [facility] [place] [address] * (ABNORMAL) POC, GLUCOSE (06/06/2024 1:39 PM EST) Glucometer, POC 317(H) 65 - 199 mg/dL 06/06/2024 1:40 PM EST [facility] Comment:Supplemental ranges: <140 mg/dL before meals <180 mg/dL all other times of the day. Blood CAPILLARY BLOOD / Unknown 06/06/2024 1:39 PM EST 06/06/2024 1:41 PM EST Melida Valdes MD POINT OF CARE TEST O NIKA Performing Organization Address City/[facility]/ZIP Co de Phone Number [facility] [place] [address] * (ABNORMAL) POC, GLUCOSE (06/06/2024 11:34 AM EST) Glucometer, POC 264(H) 65 - 199 mg/dL 06/06/2024 11:35 AM EST [facility] Comment:Supplemental ranges: <140 mg/dL before meals <180 mg/dL all other times of the day. Blood CAPILLARY BLOOD / Unknown 06/06/2024 11:34 AM EST 06/06/2024 11:35 AM EST Melida Valdes MD POINT OF CARE TEST O RDBECKIE Performing Organization Address City/[facility]/ZIP Co de Phone Number [facility] [place] [address] * Potassium (06/06/2024 10:17 AM EST) Potassium 4.3 3.5 - 5.0 mMol/L 06/06/2024 10:46 AM EST [facility] Blood VENOUS BLOOD SPECIMEN / Unknown Venipuncture / Unknown 06/06/2024 10:17 AM EST 06/06/2024 10:22 AM EST Shahnaz Scanlon MD CHEMISTRY ORDERABLES Performing Organization Address City/[facility]/ZIP Co de Phone Number [facility] [place] [address] * POC, GLUCOSE (06/06/2024 7:57 AM EST) Glucometer, POC 195 65 - 199 mg/dL 06/06/2024 8:03 AM EST [facility] Comment:Supplemental ranges: <140 mg/dL before meals <180 mg/dL all other times of the day. Blood CAPILLARY BLOOD / Unknown 06/06/2024 7:57 AM EST 06/06/2024 8:03 AM EST Melida Valdes MD POINT OF CARE TEST O NIKA Performing Organization Address City/[facility]/ZIP Co de Phone Number [facility] [place] [address] * POC, GLUCOSE (06/06/2024 6:53 AM EST) Glucometer, POC 187 65 - 199 mg/dL 06/06/2024 6:53 AM EST [facility] Comment:Supplemental ranges: <140 mg/dL before meals <180 mg/dL all other times of the day. Blood CAPILLARY BLOOD / Unknown 06/06/2024 6:53 AM EST 06/06/2024 6:54 AM EST Melida Valdes MD POINT OF CARE TEST O RDERABLES [facility] [place] [address] * (ABNORMAL) Hemoglobin A1c (06/06/2024 3:33 AM EST) Pathologist [facility] Hemoglobin A1c 7.1(H) 4.3 - 5.6 % 06/06/2024 1:01 PM EST [facility] Comment: Per ADA guidelines, without [...] red blood cell turnover may not be players club representative of glycemic control. Reference Interval: 4.3 - 5.6% 5.7 - 6.4%: Consistent with prediabetes >=6.5%: Consistent with diagnosis of diabetes mellitus Estimated Average Glucose 157 mg/dL 06/06/2024 1:01 PM EST [facility] Blood VENOUS BLOOD SPECIMEN / Unknown Venipuncture / Unknown 06/06/2024 3:33 AM EST 06/06/2024 3:48 AM EST Alejandra Baumann APRN CHEMISTRY ORDERAB LES [facility] [place] [address] * Heparin (unfractionated) Level (06/06/2024 3:33 AM EST) Pathologist [facility] UF Heparin 0.36 IU/mL 06/06/2024 3:59 AM EST [facility] Comment: Heparin (anti-Xa) levels should [...] [facility] Co de Phone Number [facility] [place] [address] * (ABNORMAL) CBC (with Diff) (06/06/2024 3:33 AM EST) White Blood Cell 9.81(H) 4.00 - 9.50 x10(3)/mc L 06/06/2024 3:54 AM EST [facility] Red Blood Cell 4.91 4.58 - 5.54 x10(6)/mc L 06/06/2024 3:54 AM EST [facility] Hemoglobin 14.6 13.7 - 16.5 g/dL 06/06/2024 3:54 AM EST [facility] Hematocrit 45.4 40.5 - 48.5 % 06/06/2024 3:54 AM [facility] Mean Cell Volume 92.5 82.9 - 93.1 fL 06/06/2024 3:54 AM EST [facility] Mean Cell Hemoglobin 29.7 27.5 [...] 0.40 x10(3)/mc L 06/06/2024 3:54 AM EST [facility] Basophil % 0.9 % 06/06/2024 3:54 AM EST [facility] Baso Absolute 0.09 0.00 - 0.10 x10(3)/mc L 06/06/2024 3:54 AM EST [facility] Immature Gran % 0.6 % 3:54 AM EST [facility] Immature Gran Absolute 0.06(H) 0.00 - 0.04 x10(3)/mc L 06/06/2024 3:54 AM EST [facility] Blood VENOUS BLOOD SPECIMEN / Unknown Venipuncture / Unknown 06/06/2024 3:33 AM EST 06/06/2024 3:48 AM EST Shahnaz Scanlon MD HEMATOLOGY ORDERABLE S Performing Organization Address City/[facility]/ZIP Co de Phone Number [facility] [place] [address] * Magnesium (06/06/2024 3:33 AM EST) Magnesium 0.92 0.69 - 1.07 mMol/L 06/06/2024 4:17 AM [facility] Blood VENOUS BLOOD SPECIMEN / Unknown Venipuncture / Unknown 06/06/2024 3:33 AM EST 06/06/2024 3:47 AM EST Shahnaz Scanlon MD CHEMISTRY ORDERABLES [facility] [place] [address] * (ABNORMAL) Basic Metabolic Panel (06/06/2024 3:33 [...] AM EST Shahnaz Scanlon MD CHEMISTRY ORDERABLES [facility] [place] [address] * (ABNORMAL) POC, GLUCOSE (06/05/2024 10:31 PM EDT) Glucometer, POC 238(H) 65 - 199 mg/dL 06/05/2024 10:31 PM EDT [facility] Comment:Supplemental ranges: <140 mg/dL before meals <180 mg/dL all other times of the day. Blood CAPILLARY BLOOD / Unknown 06/05/2024 10:31 PM EDT 06/05/2024 10:31 PM EDT Melida Valdes MD POINT OF CARE TEST O NIKA Performing Organization Address [facility] Co de Phone Number [facility] [place] [address] * (ABNORMAL) POC, GLUCOSE (06/05/2024 4:22 PM EDT) Glucometer, POC 205(H) 65 - 199 mg/dL 06/05/2024 4:22 PM EDT [facility] Comment:Supplemental ranges: <140 mg/dL before meals <180 mg/dL all other times of the day. Blood CAPILLARY BLOOD / Unknown 06/05/2024 4:22 PM EDT 06/05/2024 4:23 PM EDT Melida Valdes MD POINT OF CARE TEST O RALPHERAPIETER Performing Organization Address City/[facility]/ZIP Co de Phone Number [facility] [place] [address] * (ABNORMAL) POC, GLUCOSE (06/05/2024 11:34 AM EDT) Glucometer, POC 211(H) 65 - 199 mg/dL 06/05/2024 11:34 AM EDT [facility] Comment:Supplemental ranges: <140 mg/dL before meals <180 mg/dL all other times of the day. Blood CAPILLARY BLOOD / Unknown 06/05/2024 11:34 AM EDT 06/05/2024 11:34 AM EDT Melida Valdes MD POINT OF CARE TEST O RDERABLES Performing Organization Address City/[facility]/ZIP Co de Phone Number [facility] [place] [address] * Potassium (06/05/2024 9:04 AM EDT) [facility] Potassium 4.3 3.5 - 5.0 mMol/L 06/05/2024 9:50 AM EDT [facility] Blood VENOUS BLOOD SPECIMEN / Unknown Venipuncture / Unknown 06/05/2024 9:04 AM EDT 06/05/2024 9:21 AM EDT Shahnaz Scanlon MD CHEMISTRY ORDERABLES Performing Organization Address [facility] Co de Phone Number [facility] [place] [address] * POC, GLUCOSE (06/05/2024 7:27 AM EDT) [facility] Glucometer, POC 166 65 - 199 mg/dL 06/05/2024 7:27 AM EDT [facility] Comment:Supplemental ranges: <140 mg/dL before meals <180 mg/dL all other times of the day. Blood CAPILLARY BLOOD / Unknown 06/05/2024 7:27 AM EDT 06/05/2024 7:27 AM EDT Melida Valdes MD POINT OF CARE TEST O NIKA Performing Organization Address [facility] Co de Phone Number [facility] [place] [address] * Heparin (unfractionated) Level (06/05/2024 3:44 AM EDT) [facility] UF Heparin 0.44 IU/mL 06/05/2024 4:07 AM EDT [facility] Comment: Heparin (anti-Xa) levels should [...] [facility] Co de Phone Number [facility] [place] [address] * (ABNORMAL) CBC (with Diff) (06/05/2024 3:44 AM EDT) White Blood Cell 10.83(H) 4.00 - 9.50 x10(3)/mc L 06/05/2024 3:56 AM EDT [facility] Red Blood Cell 5.07 4.58 - 5.54 x10(6)/mc L 06/05/2024 3:56 AM EDT [facility] Hemoglobin 15.3 13.7 - 16.5 g/dL 06/05/2024 3:56 AM EDT [facility] Hematocrit 46.8 40.5 - 48.5 % 06/05/2024 3:56 AM EDT [facility] Mean Cell Volume 92.3 82.9 - 93.1 fL 06/05/2024 3:56 AM EDT [facility] Mean Cell Hemoglobin 30.2 27.5 - 32.1 pg 06/05/2024 3:56 AM EDT [facility] Mean Cell Hemoglobin Concentration 32.7 [...] Lymph % 24.0 % 06/05/2024 3:56 AM [facility] Lymph Absolute 2.60 0.90 - 3.20 x10(3)/mc L 06/05/2024 3:56 AM [facility] Monocyte % 10.9 % 06/05/2024 3:56 AM [facility] Monocyte Absolute 1.18(H) 0.30 - 0.90 x10(3)/mc L 06/05/2024 3:56 AM [facility] Eos % 2.2 % 06/05/2024 3:56 AM [facility] Eos Absolute 0.24 0.00 - 0.40 x10(3)/mc L 06/05/2024 3:56 AM [facility] Basophil % 0.8 % 06/05/2024 3:56 AM EDT [facility] Baso Absolute 0.09 0.00 - 0.10 x10(3)/mc L 06/05/2024 3:56 AM EDT [facility] Immature Gran % 0.6 % 3:56 AM EDT [facility] Immature Gran Absolute 0.07(H) 0.00 - 0.04 x10(3)/mc L 06/05/2024 3:56 AM EDT [facility] Blood VENOUS BLOOD SPECIMEN / Unknown Venipuncture / Unknown 06/05/2024 3:44 AM EDT 06/05/2024 3:50 AM EDT Shahnaz Scanlon MD HEMATOLOGY ORDERABLE S Performing Organization Address City/[facility]/ZIP Co de Phone Number [facility] [place] [address] * Magnesium (06/05/2024 3:44 AM EDT) Magnesium 0.92 0.69 - 1.07 mMol/L 06/05/2024 4:20 AM EDT [facility] Blood VENOUS BLOOD SPECIMEN / Unknown Venipuncture / Unknown 06/05/2024 3:44 AM EDT 06/05/2024 3:50 AM EDT Shahnaz Scanlon MD CHEMISTRY ORDERABLES [facility] [place] [address] * (ABNORMAL) Basic Metabolic Panel (06/05/2024 3:44 AM EDT) Glucose 155 65 - 199 mg/dL 06/05/2024 4:20 AM EDT [facility] Comment:Glucose Concentratio n >=200 [...] AM EDT Shahnaz Scanlon MD CHEMISTRY ORDERABLES [facility] [place] [address] * Potassium (06/04/2024 10:34 PM EDT) Potassium 3.7 3.5 - 5.0 mMol/L 06/04/2024 11:03 PM EDT [facility] Blood VENOUS BLOOD SPECIMEN / Unknown Venipuncture / Unknown 06/04/2024 10:34 PM EDT 06/04/2024 10:39 PM EDT Shahnaz Scanlon MD CHEMISTRY ORDERABLES [facility] [place] [address] * POC, GLUCOSE (06/04/2024 7:43 PM EDT) Glucometer, POC 175 65 - 199 mg/dL 06/04/2024 7:43 PM EDT [facility] Comment:Supplemental ranges: <140 mg/dL before meals <180 mg/dL all other times of the day. Blood CAPILLARY BLOOD / Unknown 06/04/2024 7:43 PM EDT 06/04/2024 7:43 PM EDT Melida Valdes MD POINT OF CARE TEST O RDERABLES [facility] [place] [address] * Potassium (06/04/2024 4:35 PM EDT) Potassium 4.0 3.5 - 5.0 mMol/L 06/04/2024 5:32 PM EDT [facility] Blood VENOUS BLOOD SPECIMEN / Unknown Venipuncture / Unknown 06/04/2024 4:35 PM EDT 06/04/2024 4:40 PM EDT Shahnaz Scanlon MD CHEMISTRY ORDERABLES [facility] [place] [address] * POC, GLUCOSE (06/04/2024 3:26 PM EDT) Glucometer, POC 154 65 - 199 mg/dL 06/04/2024 3:26 PM EDT [facility] Comment:Supplemental ranges: <140 mg/dL before meals <180 mg/dL all other times of the day. Blood CAPILLARY BLOOD / Unknown 06/04/2024 3:26 PM EDT 06/04/2024 3:27 PM EDT Melida Valdes MD POINT OF CARE TEST O RDERABLES Performing Organization Address City/[facility]/ZIP Co de Phone Number [facility] [place] [address] * POC, GLUCOSE (06/04/2024 11:09 AM EDT) Glucometer, POC 188 65 - 199 mg/dL 06/04/2024 11:09 AM EDT [facility] Comment:Supplemental ranges: <140 mg/dL before meals <180 mg/dL all other times of the day. Blood CAPILLARY BLOOD / Unknown 06/04/2024 11:09 AM EDT 06/04/2024 11:09 AM EDT Delroy Fofana MD POINT OF CARE TEST ORDERABLES Performing Organization Address City/[facility]/ZIP Co de Phone Number [facility] [place] [address] * Heparin (unfractionated) Level (06/04/2024 10:41 AM EDT) UF Heparin 0.43 IU/mL 06/04/2024 11:06 AM EDT [facility] Comment: Heparin (anti-Xa) levels should [...] City/[facility]/ZIP Co de Phone Number [facility] [place] [address] * Potassium (06/04/2024 10:41 AM EDT) Potassium 4.0 3.5 - 5.0 mMol/L 06/04/2024 11:11 AM EDT [facility] Blood VENOUS BLOOD SPECIMEN / Unknown Venipuncture / Unknown 06/04/2024 10:41 AM EDT 06/04/2024 10:46 AM EDT Shahnaz Scanlon MD CHEMISTRY ORDERABLES Performing Organization Address [facility] Co de Phone Number [facility] [place] [address] * POC, GLUCOSE (06/04/2024 7:11 AM EDT) Glucometer, POC 182 65 - 199 mg/dL 06/04/2024 7:12 AM EDT [facility] Comment:Supplemental ranges: <140 mg/dL before meals <180 mg/dL all other times of the day. Blood CAPILLARY BLOOD / Unknown 06/04/2024 7:11 AM EDT 06/04/2024 7:12 AM EDT Delroy Fofana MD POINT OF CARE TEST ORDERABLES Performing Organization Address [facility] Co de Phone Number [facility] [place] [address] * Heparin (unfractionated) Level (06/04/2024 4:38 AM EDT) UF Heparin 0.41 IU/mL 06/04/2024 5:19 AM EDT [facility] Comment: Heparin (anti-Xa) levels should [...] ORDERABLE S Performing Organization Address [facility]/ZIP Co de Phone Number [facility] [place] [address] * (ABNORMAL) CBC (with Diff) (06/04/2024 4:38 AM EDT) White Blood Cell 11.45(H) 4.00 - 9.50 x10(3)/mc L 06/04/2024 5:12 AM EDT [facility] Red Blood Cell 5.35 4.58 - 5.54 x10(6)/mc L 06/04/2024 5:12 AM EDT [facility] Hemoglobin 16.0 13.7 - 16.5 g/dL 06/04/2024 5:12 AM [facility] Hematocrit 49.6(H) 40.5 - 48.5 % 06/04/2024 5:12 AM [facility] Mean Cell Volume 92.7 82.9 - 93.1 fL 06/04/2024 5:12 AM [facility] Mean Cell Hemoglobin 29.9 27.5 - 32.1 pg 06/04/2024 5:12 AM [facility] Mean Cell Hemoglobin Concentration 32.3 32.0 - 35.7 g/dL 06/04/2024 5:12 AM [facility] Platelet 222 145 - 357 x10(3)/mc L 06/04/2024 5:12 AM [facility] Mean Platelet Volume 9.5 7.6 - 12.9 fL 06/04/2024 5:12 AM [facility] RDW Standard Deviation 47.6(H) 36.0 - 45.0 fL 06/04/2024 5:12 AM [facility] RDW coefficient of variation 14.1(H) 11.4 - 13.8 % 06/04/2024 5:12 AM [facility] NRBC% auto 0.0 % 06/04/2024 [...] 3.20 x10(3)/mc L 06/04/2024 5:12 AM EDT [facility] Monocyte % 10.6 % 06/04/2024 5:12 AM EDT [facility] Monocyte Absolute 1.21(H) 0.30 - 0.90 x10(3)/mc L 06/04/2024 5:12 AM EDT [facility] Eos % 2.8 % 06/04/2024 5:12 AM EDT [facility] Eos Absolute 0.32 0.00 - 0.40 x10(3)/mc L 06/04/2024 5:12 AM EDT [facility] Basophil % 0.7 % 06/04/2024 5:12 AM EDT [facility] Baso Absolute 0.08 0.00 - 0.10 x10(3)/mc L 06/04/2024 5:12 AM EDT [facility] Immature Gran % 0.5 % 5:12 AM EDT [facility] Immature Gran Absolute 0.06(H) 0.00 - 0.04 x10(3)/mc L 06/04/2024 5:12 AM EDT [facility] Blood VENOUS BLOOD SPECIMEN / Unknown Venipuncture / Unknown 06/04/2024 4:38 AM EDT 06/04/2024 5:07 AM EDT Shahnaz Scanlon MD HEMATOLOGY ORDERABLE S [facility] [place] [address] * Magnesium (06/04/2024 4:38 AM EDT) Magnesium 0.84 0.69 - 1.07 mMol/L 06/04/2024 5:35 AM EDT [facility] Blood VENOUS BLOOD SPECIMEN / Unknown Venipuncture / Unknown 06/04/2024 4:38 AM EDT 06/04/2024 5:07 AM EDT Shahnaz Scanlon MD CHEMISTRY ORDERABLES [facility] [place] [address] * (ABNORMAL) Basic Metabolic Panel (06/04/2024 4:38 AM EDT) Glucose 118 65 - 199 mg/dL 06/04/2024 5:35 AM EDT [facility] Comment:Glucose Concentratio n >=200 mg/dL plus symptoms is consistent with Diabetes Mellitus. Blood Urea Nitrogen 22(H) 10 - 20 mg/dL 06/04/2024 5:35 AM EDT [facility] Creatinine 1.22 0.80 - 1.50 mg/dL 06/04/2024 5:35 AM EDT [facility] Sodium 137 135 - 145 mMol/L 06/04/2024 5:35 AM EDT [facility] Potassium 3.6 3.5 - 5.0 mMol/L 06/04/2024 5:35 AM EDT [facility] Chloride 97(L) 98 - 107 mMol/L 06/04/2024 5:[facility] Carbon Dioxide 29 22 - 31 mMol/L 06/04/2024 5:35 [facility] Anion Gap 11 5 - 15 mMol/L 06/04/2024 5:35 AM [facility] Calcium 9.0 8.5 - 10.5 mg/dL 06/04/2024 5:35 AM EDT [facility] Est Glomerular Filtration Rate - Male 65 mL/min/1. 73 m?? 06/04/2024 5:35 AM EDT [facility] Comment: This patient's estimated GFR [...] CHEMISTRY ORDERABLES Performing Organization Address [facility] Co de Phone Number [facility] [place] [address] * Heparin (unfractionated) Level (06/03/2024 8:58 PM EDT) UF Heparin 0.27 IU/mL 06/03/2024 9:33 PM EDT [facility] Comment: Heparin (anti-Xa) levels should [...] ORDERABLE S Performing Organization Address [facility] Co de Phone Number [facility] [place] [address] * POC, GLUCOSE (06/03/2024 8:05 PM EDT) Glucometer, POC 136 65 - 199 mg/dL 06/03/2024 8:05 PM EDT [facility] Comment:Supplemental ranges: <140 mg/dL before meals <180 mg/dL all other times of the day. Blood CAPILLARY BLOOD / Unknown 06/03/2024 8:05 PM EDT 06/03/2024 8:05 PM EDT Delroy Fofana MD POINT OF CARE TEST ORDERABLES Performing Organization Address [facility] Co de Phone Number [facility] [place] [address] * POC, GLUCOSE (06/03/2024 5:48 PM EDT) Glucometer, POC 191 65 - 199 mg/dL 06/03/2024 5:48 PM EDT [facility] Comment:Supplemental ranges: <140 mg/dL before meals <180 mg/dL all other times of the day. Blood CAPILLARY BLOOD / Unknown 06/03/2024 5:48 PM EDT 06/03/2024 5:49 PM EDT Delroy Fofana MD POINT OF CARE TEST ORDERABLES Performing Organization Address City/[facility] Co de Phone Number [facility] [place] [address] * CT Chest wo Contrast (Generic) (06/03/2024 4:33 PM EDT) WORKSTATION ID [id number] DH RAD Anatomical Region Laterality Modality Chest Computed Tomogra phy Impressions 06/03/2024 4:47 PM EDT Cardiomegaly. Biventricular ICD leads in place. Thank you for letting us participate in the care of this patient. ??If you are a health care provider and have any questions regarding this report, please contact the number below. ??For patients who have questions please contact the health animal caretaker supervisor that requested your imaging first. ? Electronically signed by: Stuart Aponte MD, [facility] ??([phone]), at 06/03/2024 4:47 PM Narrative 06/03/2024 4:47 [...] patients who have questions please contactthe health animal caretaker supervisor that requested your imaging first. Bobby Loja MD IMG CT ORDERABLES * Carotid Duplex, Bilateral (06/03/2024 2:19 PM EDT) VB Text Report Department: Vascular Surgery Lab Patient: [id number] (GEORGE MEHTA) CPT: 65827 Referring Physician: BOBBY LOJA ?? Phone: Indications: [...] Heparin 0.15 IU/mL 06/03/2024 1:13 PM EDT [facility] Comment: Heparin (anti-Xa) levels should [...] EDT Shahnaz Scanlon MD HEMATOLOGY ORDERABLE S [facility] [place] [address] * POC, GLUCOSE (06/03/2024 11:14 AM EDT) Glucometer, POC 166 65 - 199 mg/dL 06/03/2024 11:14 AM EDT [facility] Comment:Supplemental ranges: <140 mg/dL before meals <180 mg/dL all other times of the day. Blood CAPILLARY BLOOD / Unknown 06/03/2024 11:14 AM EDT 06/03/2024 11:14 AM EDT Delroy Fofana MD POINT OF CARE TEST ORDERABLES [facility] [place] [address] * (ABNORMAL) Troponin-T, High Sensitivity 3 Hour (06/03/2024 10:06 AM EDT) Troponin-T, High Sensitivity 266(H) <=22 ng/L 06/03/2024 10:50 AM EDT [facility] Comment: This patient's troponin T [...] troponin value can be found in the [facility] Laboratory Test Catalog Troponin - https://[email or web address].testcatalog.org/catalogs/565/files/36044 Reference: Fourth Karnack Definition of Myocardial Infarction. Journal of the [place] [employer] 2018;72:1316-7952 Troponin-T, HS 3 hr delta 06/03/2024 10:50 AM EDT [facility] Comment:Delta troponin value not calculated, sample collected outside of delta calculation time limit. Blood VENOUS BLOOD SPECIMEN / Unknown IP Care Team Draw / Unknown 06/03/2024 10:06 AM EDT 06/03/2024 10:15 AM EDT Delroy Fofana MD CHEMISTRY ORDERABLE S [facility] [place] [address] * ECHO COMPLETE W CONTRAST (06/03/2024 8:46 AM EDT) Anatomical Region Laterality Modality Cardiac Other 06/03/2024 6:52 AM EDT Narrative 06/03/2024 10:32 AM EDT [address] [place] [id number] ? Echocardiogram Report Name: GEORGE MEHTA Raad ?Study Date: 06/03/2024 06:52 AM : 1955 ? Height: 168 cm ? Account: [id number] Age: 69 yrs ? Weight: 102 kg Gender: Male ?BSA: 2.1 m2 Ordering Physician: SHAHNAZ SCANLON Referring Physician: NEHAL QUINTERO Performed By: Sara Kebede RDCS Reason For Study: STEMI Exam Location: [facility]. Interpretation Summary -Left ventricular systolic function [...] fellow performed study of today's date). Procedure Complete-[id number]. Image enhancement Optison was used for left [...] Note Jonnie Jordan MD - 06/03/2024 [address] [place] [address] Echocardiogram Report Name: GEORGE MEHTA Study Date: 406:52 AM : 1955 Height: 168 cm Account: [id number] Age: 69 yrs Weight: 102 kg Gender: Male BSA: 2.1 m2 Ordering Physician: SHAHNAZ SCANLON Referring Physician: NEHAL QUINTERO Performed By: Sara Kebede RDCS Reason For Study: STEMI Exam Location: [facility]. Interpretation Summary -Left ventricular systolic function [...] a fellow performed study oftoday's date). Procedure Complete-[id number]. Image enhancement Optison was used for left [...] 289(H) <=22 ng/L 06/03/2024 9:26 AM EDT [facility] Comment: This patient's troponin T [...] troponin value can be found in the [facility] Test Catalog Troponin - https://[email or web address]/catalogs/565/files/45545 Reference: Fourth Karnack Definition of Myocardial Infarction. Journal of the [place] [employer] 2018;72:6379-8776 Troponin-T, HS 1 hr delta 5 ng/L 06/03/2024 9:26 AM EDT [facility] Comment:The 1 hour Troponin T delta value is the absolute difference between the Troponin T concentrations of the initial and subsequent sample collected between 45 - 120 minutes following the initial collection. Blood VENOUS BLOOD SPECIMEN / Unknown IP Care Team Draw / Unknown 06/03/2024 8:27 AM EDT 06/03/2024 8:37 AM EDT Delroy Fofana MD CHEMISTRY ORDERABLE S [facility] [place] [address] * POC, GLUCOSE (06/03/2024 7:54 AM EDT) Glucometer, POC 195 65 - 199 mg/dL 06/03/2024 7:55 AM EDT [facility] Comment:Supplemental ranges: <140 mg/dL before meals <180 mg/dL all other times of the day. Blood CAPILLARY BLOOD / Unknown 06/03/2024 7:54 AM EDT 06/03/2024 7:55 AM EDT Nuha Rojo MD POINT OF CARE TEST ORDERABLES Performing Organization Address City/[facility]/ZIP Co de Phone Number [facility] [place] [address] * (ABNORMAL) Troponin-T, High Sensitivity (06/03/2024 7:39 AM EDT) Troponin-T, High Sensitivity Initial 284(H) <=22 ng/L 06/03/2024 8:29 AM EDT [facility] Comment: This patient's troponin T [...] troponin value can be found in the [facility] Test Catalog Troponin - https://[facility].testcatalog.org/catalogs/565/files/90679 Reference: Fourth Karnack Definition of Myocardial Infarction. Journal of the [place] [employer] 2018;72:0394-1208 Blood VENOUS BLOOD SPECIMEN / Unknown IP Care Team Draw / Unknown 06/03/2024 7:39 AM EDT 06/03/2024 7:48 AM EDT Delroy Fofana MD CHEMISTRY ORDERABLE S Performing Organization Address City/[facility]/ZIP Co de Phone Number [facility] [place] [address] * (ABNORMAL) Troponin-T, High Sensitivity 3 Hour (06/03/2024 5:11 AM EDT) Troponin-T, High Sensitivity 254(H) <=22 ng/L 06/03/2024 5:49 AM EDT [facility] Comment: This patient's troponin T [...] troponin value can be found in the [facility] Test Catalog Troponin - https://[facility] centerDE[facility].[email or web address]/catalogs/565/files/31820 Reference: Fourth Karnack Definition of Myocardial Infarction. Journal of the [place] [employer] 2018;72:2744-8637 Troponin-T, HS 3 hr delta 46 ng/L 06/03/2024 5:49 AM EDT [facility] Comment:The 3 hour Troponin T delta value is the absolute difference between the Troponin T concentrations of the initial and subsequent sample collected between 2 h: 45 min and 6 h following the initial collection Blood VENOUS BLOOD SPECIMEN / Unknown IP Care Team Draw / Unknown 06/03/2024 5:11 AM EDT 06/03/2024 5:20 AM EDT Shahnaz Scanlon MD CHEMISTRY ORDERABLES [facility] [place] [address] * (ABNORMAL) Troponin-T, High Sensitivity 1 Hour (06/03/2024 3:07 AM EDT) Troponin-T, High Sensitivity 218(H) <=22 ng/L 06/03/2024 3:39 AM EDT [facility] Comment: This patient's troponin T [...] troponin value can be found in the [facility] Test Catalog Troponin - https://[email or web address]/catalogs/565/files/95869 Reference: Fourth Karnack Definition of Myocardial Infarction. Journal of the [place] College [employer] 2018;72:9213-9122 Troponin-T, HS 1 hr delta 10 ng/L 06/03/2024 3:39 AM EDT [facility] Comment:The 1 hour Troponin T delta value is the absolute difference between the Troponin T concentrations of the initial and subsequent sample collected between 45 - 120 minutes following the initial collection. Blood VENOUS BLOOD SPECIMEN / Unknown IP Care Team Draw / Unknown 06/03/2024 3:07 AM EDT 06/03/2024 3:12 AM EDT Shahnaz Scanlon MD CHEMISTRY ORDERABLES [facility] [place] [address] * XR Chest One View (06/03/2024 2:41 AM EDT) WORKSTATION ID [id number] RAD Anatomical Region Laterality Modality Chest N/A Digital Radiogra phy Impressions 06/03/2024 3:06 AM EDT No radiographically evident acute cardiopulmonary process. Thank you for letting us participate in the care of this patient. ??If you are a health care provider and have any questions regarding this report, please contact the number below. ??For patients who have questions please contact the health animal caretaker supervisor that requested your imaging first. ? Electronically signed by: Corazon Mauro MD, [facility] ([phone]), at 06/03/2024 3:06 AM Narrative 06/03/2024 3:06 [...] patients who have questions please contactthe health animal caretaker supervisor that requested your imaging first. Shahnaz Scanlon MD IMG DX ORDERABLES * Heparin (unfractionated) Level (06/03/2024 2:13 AM EDT) Pathologist [facility] UF Heparin 0.56 IU/mL 06/03/2024 4:13 AM EDT [facility] Comment: Heparin (anti-Xa) levels should [...] EDT Shahnaz Scanlon MD HEMATOLOGY ORDERABLE S [facility] [place] [address] * (ABNORMAL) Troponin-T, High Sensitivity (06/03/2024 2:13 AM EDT) Pathologist [facility] Troponin-T, High Sensitivity Initial 208(H) <=22 ng/L 06/03/2024 3:02 AM EDT [facility] Comment: This patient's troponin T [...] troponin value can be found in the [facility] Test Catalog Troponin - https://[email or web address]/catalogs/565/files/22200 Reference: Fourth Karnack Definition of Myocardial Infarction. Journal of the [place] [employer] 2018;72:7160-2917 Blood VENOUS BLOOD SPECIMEN / Unknown IP Care Team Draw / Unknown 06/03/2024 2:13 AM EDT 06/03/2024 2:32 AM EDT Shahnaz Scanlon MD CHEMISTRY ORDERABLES [facility] [place] [address] * Magnesium (06/03/2024 2:13 AM EDT) Pathologist [facility] Magnesium 0.86 0.69 - 1.07 mMol/L 06/03/2024 3:02 AM EDT [facility] Blood VENOUS BLOOD SPECIMEN / Unknown IP Care Team Draw / Unknown 06/03/2024 2:13 AM EDT 06/03/2024 2:32 AM EDT Shahnaz Scanlon MD CHEMISTRY ORDERABLES [facility] [place] [address] * Basic Metabolic Panel (06/03/2024 2:13 AM EDT) Glucose 126 65 - 199 mg/dL 06/03/2024 3:02 AM EDT [facility] Comment:Glucose Concentratio n >=200 mg/dL plus symptoms is consistent with Diabetes Mellitus. Blood Urea Nitrogen 20 10 - 20 mg/dL 06/03/2024 3:02 AM [facility] Creatinine 1.13 0.80 - 1.50 mg/dL 06/03/2024 3:02 AM [facility] Sodium 139 135 - 145 mMol/L 06/03/2024 3:02 AM [facility] Potassium 4.2 3.5 - 5.0 mMol/L 06/03/2024 3:02 AM [facility] Chloride 101 98 - 107 mMol/L 06/03/2024 3:02 AM [facility] Carbon Dioxide 26 22 - 31 mMol/L 06/03/2024 3:02 AM [facility] Anion Gap 12 5 - 15 mMol/L 06/03/2024 3:02 AM [facility] Calcium 9.8 8.5 - 10.5 mg/dL 06/03/2024 3:02 AM [facility] Est Glomerular Filtration Rate - Male 71 mL/min/1. 73 m?? 06/03/2024 3:02 AM [facility] [...] AM EDT Shahnaz Scanlon MD CHEMISTRY ORDERABLES [facility] [place] [address] * (ABNORMAL) CBC (with Diff) (06/03/2024 2:13 AM EDT) White Blood Cell 11.16(H) 4.00 - 9.50 x10(3)/mc L 06/03/2024 2:37 AM [facility] Red Blood Cell 5.09 4.58 - 5.54 x10(6)/mc L 06/03/2024 2:37 AM [facility] Hemoglobin 15.0 13.7 - 16.5 g/dL 06/03/2024 2:37 AM [facility] Hematocrit 47.4 40.5 - 48.5 % 06/03/2024 2:37 AM EDT [facility] Mean Cell Volume 93.1 82.9 - 93.1 fL 06/03/2024 2:37 AM [facility] Mean Cell Hemoglobin 29.5 27.5 - 32.1 pg 06/03/2024 2:37 AM [facility] Mean Cell Hemoglobin Concentration 31.6(L) 32.0 - 35.7 g/dL 06/03/2024 2:37 AM [facility] Platelet 217 145 - 357 x10(3)/mc L 06/03/2024 2:37 AM EDT [facility] Mean Platelet Volume 9.5 7.6 [...] Monocyte % 8.1 % 06/03/2024 2:37 AM [facility] Monocyte Absolute 0.90 0.30 - 0.90 x10(3)/mc L 06/03/2024 2:37 AM [facility] Eos % 2.4 % 06/03/2024 2:37 AM [facility] Eos Absolute 0.27 0.00 - 0.40 x10(3)/mc L 06/03/2024 2:37 AM [facility] Basophil % 0.8 % 06/03/2024 2:37 AM [facility] Baso Absolute 0.09 0.00 - 0.10 x10(3)/mc L 06/03/2024 2:37 AM EDT [facility] Immature Gran % 0.4 % 2:37 AM EDT [facility] Immature Gran Absolute 0.05(H) 0.00 - 0.04 x10(3)/mc L 06/03/2024 2:37 AM EDT [facility] Blood VENOUS BLOOD SPECIMEN / Unknown IP Care Team Draw / Unknown 06/03/2024 2:13 AM EDT 06/03/2024 2:31 AM EDT Shahnaz Scanlon MD HEMATOLOGY ORDERABLE S [facility] [place] [address] * Lipid Panel (Reflex Direct LDL) (06/03/2024 2:13 AM EDT) Cholesterol, Total 76 mg/dL 06/03/2024 3:02 AM [facility] Comment: Desirable: < 200 mg/dL Borderline High: 200 - 239 mg/dL High: > or = 240 mg/dL Triglyceride 75 mg/dL 06/03/2024 3:02 AM [facility] Comment: Normal: <150 mg/dL Borderline [...] 2:13 AM EDT 06/03/2024 2:32 AM EDT [facility] - 06/03/2024 3:02 AM [...] ACC/AHA Guidelines (most recently Bruce et [facility]. [facility] 05/07/22): * For individuals with atherosclerotic [...] CHEMISTRY ORDERABLES Performing Organization Address [facility] Phone Number [facility] [place] [address] * (ABNORMAL) APTT (06/03/2024 2:13 AM EDT) Partial Thromboplastin Time 105(HHH) 25 - 37 sec 06/03/2024 4:13 AM EDT [facility] Comment: The PTT is NOT [...] MD HEMATOLOGY ORDERABLE S Performing Organization Address [facility] Phone Number [facility] [place] [address] * Prothrombin Time (06/03/2024 2:13 AM EDT) Prothrombin Time 11.5 9.4 - 12.5 sec 06/03/2024 4:13 AM EDT [facility] International Normalization Ratio 1.0 <=4.9 06/03/2024 4:13 AM EDT [facility] Comment: An INR < 2.0 [...] City/[facility]/ZIP Co de Phone Number [facility] [place] [address] * Hepatic Function Panel (06/03/2024 2:13 AM EDT) Albumin 3.8 3.2 - 5.2 g/dL 06/03/2024 3:02 AM EDT [facility] Aspartate Aminotransferase 20 <=39 unit/L 06/03/2024 3:02 AM EDT [facility] Alanine Aminotransferase 12 0 - 55 unit/L 06/03/2024 3:02 AM EDT [facility] Alkaline Phosphatase 76 40 - 130 unit/L 06/03/2024 3:02 AM EDT [facility] Bilirubin, Total 0.4 <=1.3 mg/dL 06/03/2024 3:02 AM EDT [facility] Bilirubin, Direct <0.2 0.0 - 0.3 mg/dL 06/03/2024 3:02 AM EDT [facility] Protein, Total 7.0 6.1 - 8.0 g/dL 06/03/2024 3:02 AM EDT [facility] Blood VENOUS BLOOD SPECIMEN / Unknown IP Care Team Draw / Unknown 06/03/2024 2:13 AM EDT 06/03/2024 2:32 AM EDT Shahnaz Scanlon MD CHEMISTRY ORDERABLES Performing Organization Address City/[facility]/ZIP Co de Phone Number [facility] [place] [address] * (ABNORMAL) pro-Brain Natriuretic Peptide (06/03/2024 2:13 AM EDT) NT-proBNP 1,628(H) <=124 pg/mL 06/03/2024 4:15 AM EDT [facility] Blood VENOUS BLOOD SPECIMEN / Unknown IP Care Team Draw / Unknown 06/03/2024 2:13 AM EDT 06/03/2024 2:32 AM EDT Shahnaz Scanlon MD CHEMISTRY ORDERABLES [facility] [place] [address] * Phosphorus (06/03/2024 2:13 AM EDT) Pathologist [facility] Phosphorus 4.4 2.5 - 4.5 mg/dL 06/03/2024 3:02 AM EDT [facility] Blood VENOUS BLOOD SPECIMEN / Unknown IP Care Team Draw / Unknown 06/03/2024 2:13 AM EDT 06/03/2024 2:32 AM EDT Shahnaz Scanlon MD CHEMISTRY ORDERABLES [facility] [place] [address] * EKG 12 Lead (06/03/2024 1:45 AM EDT) Ventricular rate 63 BPM MUSE SYSTEM Atrial Rate 63 BPM MUSE SYSTEM P-R Interval 168 ms MUSE SYSTEM QRS Duration 96 ms MUSE SYSTEM Q-T Interval 400 ms MUSE SYSTEM QTC Calculated (Bezet) 409 ms MUSE SYSTEM Calculated P [place] 65 degrees MUSE SYSTEM Calculated R [place] 70 degrees MUSE SYSTEM Calculated T [place] -86 degrees MUSE SYSTEM INTERPRETATION Atrial-sensed ventricular-paced rhythm Abnormal ECG No previous ECGs available I personally reviewed the tracing and edited the fellows interpretation Confirmed by fellow Sunni Agudelo ([id number]) on 06/04/2024 3:55:40 PM Confirmed by MD Tamia, Stuart Perry ([id number]) on 06/05/2024 11:46:48 AM MUSE SYSTEM 06/03/2024 1:45 AM EDT 06/05/2024 11:46 AM EDT Shahnaz Scanlon MD ECG ORDERABLES MUSE SYSTEM * CARDIAC CATHETERIZATION (06/03/2024 12:42 AM EDT) Anatomical Region Laterality Modality Other Narrative 06/04/2024 2:22 PM EDT ?[facility] ? Cardiac Catheterization/Intervention Report ? Patient Name: Tyson, George L. ? Procedure Date: 06/02/2024 ? A #: [id number] ? Primary Physician: Nuha Shen I ? Case #: [id number] ? File Name: [id number] ? Catheterization Order Number: [id number] ? [facility] ? Final Report [place], [place] ? Patient Name: ? George L. Tyson ? ID#: ?[id number] ? : ?1955 ? Procedure Date: ? June 02, 2024 ? Case #: ? [id number] ? Room: ? 5 ? Case Physician: [...] procedure was Emergent. The indication for ?the ship laborer visit is ACS less than or [...] catheter and a 3.5 Fr [facility] 20 Mhz using Manual ?pullback. ??Imaging [...] catheter and a 3.5 Fr [facility] 20 Mhz using ?Manual pullback. ??Imaging [...] Procedure Note Nuha Shen MD - 07/20/2024 [facility] Cardiac Catheterization/Intervention Report Patient Name: George Mehta Procedure Date: 06/02/2024 A #: [id number] Primary Physician: Nuha Shen I Case #: [id number] File Name: [id number] Catheterization Order Number: [id number] [facility] FinalReport [place], [place] Patient Name: George Mehta ID#:[id number] :1955 Procedure Date: June 02, 2024 Case [...] as ASA Class IV. The [facility] clinicalfrailty scale is 5: Mildly Frail. Diagnostic Tests: Electrocardiography: EKG was assessed by ECG. EKG was Abnormal. EKG showed STDeviation >= 0.5 mm. Medications Prior to Procedure: Sacubitril and Valsartan, Aspirin, Beta Erik, Statin and Thrombolytic (any). Indications for Diagnostic Cath: The priority of the diagnostic procedure was Emergent. Theindication for the ship laborer visit is ACS less than or [...] units of heparin were administered. A total ms324ny of Omnipaque were opened, 84cc of Omnipaque were administered jsa55cu of Omnipaque were wasted. Radiation: Fluoro time [...] catheter and a 3.5 Fr [facility] 20 Mhz usingManual pullback. Imaging was [...] catheter and a 3.5 Fr [facility] 20 Mhzusing Manual pullback. Imaging was successful. Indication: IVUS performed for pre intervention planning. Findings Pre-Intervention: scattered plaque, calcification and [id number] degrees calcification. Findings Post-Intervention: Stent not imaged [...] * POC, GLUCOSE (06/02/2024 11:31 PM EDT) [facility] Glucometer, POC 156 65 - 199 mg/dL 06/02/2024 11:31 PM EDT [facility] Comment:Supplemental ranges: <140 mg/dL before meals <180 mg/dL all other times of the day. Blood CAPILLARY BLOOD / Unknown 06/02/2024 11:31 PM EDT 06/02/2024 11:31 PM EDT Nuha Rojo MD POINT OF CARE TEST ORDERABLES [facility] [place] [address] documented in this encounter Visit Diagnoses Not [...] 2100, Last dose on Fri06/23/24 at 0900, Warehouse Loader recommended duration is 3 days., Routine Given [...] 8:02 PM EST 2 tablets sodium chloride (Victoria) 0.65 % nasal spray 1 spray 1 [...] Lou Lane RN) 174 (Given - Provider: iMchelle Orozco RN) carvediloL (Coreg) tablet 12.5 mg [...] Routine 0841 (Given - Provider: Shazia Mcdonald, JMAIE) insulin glargine-ygfn (Semglee) (100 unit/mL) subcutaneous injection [...] 2100, Last dose on Fri06/23/24 at 0900, Warehouse Loader recommended duration is 3 days., Routine 2043 [...] Comment: bp 125/65)2015 (Given - Provider: Christina Meyrs RN - Comment: 117/75) 0813 (Given - [...] oral route first line., Routine sodium chloride (Victoria) 0.65 % nasal spray 1 spray 1 [...] 6 hours upon arrival to Unit. Give NE if unable to take PO, Routine Group [...] Routine documented in this encounter Care Teams Commercial Review Appraiser Relationship Specialty Start Date End Date Mauro Berumen MD [address] [place] [address] PCP - General Family Medicine 06/02/24 documented as of this encounter
--- OUTSIDE RECORDS SUMMARY | 2024-09-08 11:03 | XMS_ITS | Encounter Summary ---
Author Organization [facility] Address [facility] [place] [address] Care Team Providers Care Line Servicer Name Role Phone Mauro Berumen MD Primary Care Provider [phone] Encounter Details Date Type Department Care Team (Late st Contact Info) Description 06/02/2024 External Results Administration [facility] [place] [address] Social History Tobacco Use Types Packs/Day Years Used Date Smoking Tobacco: Never Assessed [facility] Utilities Answer Date Recorded In the past 12 months has th e electric, gas, oil, or water [employer] threatened to shut off services in your [...] any time in the past 12 m [facility], were you homeless or living in [...] PM EST Office Visit Cardiology at [address] [address] Moi Falcon MD [facility] [place] [address] documented as of this encounter Procedures Procedure Name Priority Date/Time Associated Diagnosis Comments MISC EXTERNAL CARDIOLOGY RESULT Routine 06/02/2024 9:54 PM EDT documented in this encounter Results * External Cardiology Result (06/02/2024 9:54 PM EDT) Anatomical Region Laterality Modality Other Historical Provider EXTERNAL CARDIOLO GY RESULT documented in this encounter Visit Diagnoses Not on filedocumented in this encounter Care Teams Line Servicer Relationship Specialty Start Date End Date Mauro Berumen MD [address] [place] [address] PCP - General Family Medicine 06/02/24 documented as of this encounter
--- OUTSIDE RECORDS SUMMARY | 2024-09-08 11:03 | XMS_ITS | Clinical Summary ---
Author Organization [facility] Address [address] [place] [address] Care Team Providers Care Flavoring Oil Filterer Name Role Phone Jesu Guerra [facility] Primary Care Provider [phone] Social History Tobacco Use Types Packs/Day Years [...] 2032 Insurance [employer] MEDICARE Care Teams Flavoring Oil Filterer Relationship Specialty Start Date End Date Jesu Guerra, DNP [place] [place] [address] PCP - General Family Medicine - Primary Care 10/03/23
--- OUTSIDE RECORDS SUMMARY | 2024-09-08 11:03 | XMS_ITS | Referral Summary ---
Author Organization [facility] Address [address] [place] [address] Care Team Providers Care Svp Research & Ebusiness Operations Name Role Phone Jesu Guerra [facility] Primary Care Provider [phone] Social History Tobacco Use Types Packs/Day Years Used Date Smoking Tobacco: Never Assessed Sex and Gender Information Value Date Recorded Sex Assigned at Not on file Legal Sex Male 23:22 EDT Gender Identity Not on file Sexual Orientation Not on file Plan of Treatment Not on file Insurance [employer] [place] [address] Care Teams Svp Research & Ebusiness Operations Relationship Specialty Start Date End Date Jesu Guerra, DNP [facility] [place] [place] [address] PCP - General Family Medicine - Primary Care 10/03/23
--- OUTSIDE RECORDS SUMMARY | 2024-09-08 11:03 | XMS_ITS | Continuity of Care Document ---
Author Organization [facility] Address [address] [place] [address] Assessment No assessment recorded. Plan of Treatment [...] instructions recorded. Reason for Referral None Reported. Problems Name Problem SNOMED Code Status Onset Date Resolution Date Notes Provider Name and Address Organization Details Recorded Time Coronary artery bypass grafts x 3 Active 06/[address], [place], [address], [facility] 5 13:15:27 Type 2 diabetes mellitus 75309446 Active [address], [place], [address], [facility] 4 16:23:15 Coronary arterioscle rosis 06925176 Active 2023 SC x 3, with stents Pacer AICD LDL 34 04/[address], [place], [address], [facility] 5 12:00:46 Essential hypertensio n 55816707 Active [address], [place], [address], [facility] 4 23:10:54 Chronic left-sided congestive heart failure 6810632 Active 2023 ICD. last echo 31% 08/[address], [place], [address], [facility] 5 13:17:19 Malignant melanoma 441631985 Active 2016 left scalp MD [address], [place], [address], [facility] 4 14:10:50 Adult health examination Active [address], [place], [address], [facility] 4 11:43:13 Onychomycos is 312622642 Active 2023 toenails MD [address], [place], [address], [facility] 4 11:47:27 Neuropathy due to diabetes mellitus 178223306 Active [address], [place], [address], [facility] 4 16:23:51 Mixed anxiety and depressive disorder 563013272 Active [address], [place], [address], [facility] 4 16:27:39 Ambulatory continuous glucose monitoring of interstitia l tissue fluid Active [address], [place], [address], [facility] 4 23:10:45 Hearing loss 97896327 Active [address], [place], [address], [facility] 23:11:04 Notes:Some problems listed i n Document: #[id number] could not be added to this patient's [...] 6 hours by oral route as needed. 08/23 completed Per [facility] d/c 06/21/24 Not Available Not Available Not Available carvedilo l 12.5 mg tablet TAKE ONE TABLET BY MOUTH TWICE A DAY 08/23 completed Stopped per [facility] d/c summary 08/16/24 Not Available Not Available Not Available metoprolo l succinate ER 50 mg tablet,ex tended release 24 hr Take 1 tablet every day by oral route. active Per [facility] d/c summary 08/16/24 Not Available Not Available [...] Not Available Not Available No t Available losartan 25 mg tablet Once a day. 08/23 completed Not Available Not Available Not Available nitroglyc guillermina 0.4 mg sublingua l tablet Place 1 tablet by sublingu al route. active every 5 minutes for chest pain times 3 then call 911. Per [facility] d/c summary 08/16/24 Not Available Not Available Not Available furosemid e 20 mg tablet TAKE ONE TABLET BY MOUTH EVERY DAY 08/23 completed Not Available Not Available Not Available ketoconaz ole 2 % topical cream APPLY 1 APPLICAT ION TOPICALL Y TO TOENAILS ONCE A DAY active Not Available Not Available No t Available Adult Low Dose Aspirin 81 mg tablet,de layed release Take 1 tablet every day by oral route. 03/14/ 2024 active Not Available Not Available Not Avai lable insulin lispro (U-100) 100 unit/mL subcutane ous pen Inject 20 units 3 times a day by subcutan eous route with meal(s). active inject tid before meals - CHO counting with target 80-130 fasting, <180 pp Not Available Not Available Not Available escitalop eric 20 mg tablet TAKE [...] BY TOPICAL ROUTE 4 TIMES PER DAY 08/23 completed Not Available Not Available Not Available cholecalc iferol (vitamin D3) 50 mcg [...] hours by oral route. 08/17 completed Per [facility] d/c 06/21/24 Not Available Not Available Not Available Jardiance 25 mg tablet TAKE ONE TABLET BY MOUTH EVERY DAY active Not Available Not Available No t Available Entresto 49 mg-51 mg tablet TAKE ONE TABLET BY MOUTH TWICE A DAY active Not Available Not Available No t Available Tresiba FlexTouch U-100 insulin 100 unit/mL (3 mL) subcutane ous pen 15 units at bed time. active Not Available Not Available No t Available BD Ultra-Fin e Micro Pen Needle use as directed active Not Available Not Available No t Available BD Sonia 2nd Gen Pen Needle 32 gauge x USE DIRECTED active Not Available Not Available No t Available FreeStyle Willem 2 Sensor kit active Not Available Not Available Not Available Vitals Date Recorded Body height Body temperature Body mass index (BMI) Body weight Oxygen saturation Oxygen saturation in Arterial blood by Pulse oximetry Heart rate Systolic blood pressure Diastolic blood pressure Provider Name and Address Organization Details Last Updated DateTime 5 167.64 cm 97.8 [degF] 34.1 kg/m2 59111.9 9 g 99 % 99 % 80 /min 88 mm[Hg] 56 mm[Hg] ANTHONYELVIN MANRIQUEGUERO [facility] 5 11:43:21 Social History Question Answer Notes LastModified by Organizat ion Details LastModified Time Tobacco Smoking Status Former Smoker MELITON BURTON GUERO null, [facility] 08/23/2024 11:37:56 Do You Have An Advance Directive? No Declined Papers At 08/23. Information not available 08/23/2024 When Did You Quit Smoking? 1-5yearssin celastcigar ette Information not available 08/23/2024 What Was The Date Of Your Most Recent Tobacco Screening? 08/23/2024 Information not available 08/23/2024 Sex: Unknown Functional Status None recorded. Mental Status None recorded. Family History Nothing Reported. Medical History No medical history recorded. Immunizations Vaccine Type Date Status Note Provider Nam e and Address Organization Details Recorded Time COVID-19, mRNA, LNP-S, PF, jeferson-sucrose, 30 mcg/0.3 mL 4 completed MD [address], [place], [address], [facility] 08/30/2023 19:29:40 Tdap 4 completed MD [address], [place], [address], [facility] 12/01/2023 18:15:36 Influenza, high-dose, trivalent, PF 4 completed HANNAH DIMAS CMA [facility], [facility] 05/18/2024 11:35:26 COVID-19, mRNA, LNP-S, PF, jeferson-sucrose, 30 mcg/0.3 mL 4 completed HANNAH DIMAS CMA [facility], [facility] 05/18/2024 11:35:26 Pneumococcal conjugate PCV20, polysaccharide [id number] conjugate, adjuvant, PF 3 completed JENNIFER SORENSEN MA [facility], [facility] 08/12/2023 15:42:12 influenza, unspecified formulation 3 completed JENNIFER SORENSEN MA [facility], [facility] 08/26/2023 11:13:50 Past Encounters Encounter ID Performer Location Encounter Start Date Encounter Closed Date Diagnosis/Indication Diagnosis SNOMED-CT Code Diagnosis ICD10 Code Diagnosis Note [id number] BEATRIS SANTOS MD [address] [address] 08/23/2024 11:30:16 08/23/2024 12:07:13 Coronary arteriosclerosis 79752690 I25.10 Post CABG, appears to doing well. No anginal symptoms, nothing to suggest CHF. Symptoms of orthostasi s have resolved since changing from carvedilol to metoprolol and now only as needed Lasix. Continue with cardiac rehab, on appropriat e preventive therapy otherwise. Still has follow-up visits with his cardiologi st Type 2 ericka betes mellitus 88374950 E11.9 Reeducativeena scott about proper use of quick acting insulin, told only for use before meals. I do not think patient can do true carbohydra te counting but asked him to pay close attention using his continuous glucose monitor to try to learn what he can in terms of how much insulin to take Premeal. Stay with Trefaizanba at 15 units at night for now. Has his regular follow-up appointjames lopez in about a month Chronic le ft-sided congestive heart failure 7665824 I50.1 Appears euvolemic, no changes. last echo 50% ejection fraction up from 35% post SC Health Concerns Section Related Observation LastModified by Organization Detai ls LastModified Time None Recorded Concern Status LastModified by Organization Details LastModified Time None Recorded Payers Encounter Date Sequence Insurance Name Policy Number Policy Suazo Covered Member ID Suazo Member ID Guarantor Name 08/23/2024 1 [id number]/A [place]ANTAGE - PPO) [id number] Arturo Mehta [id number] Arturo Mehta Notes Date Note Type Note Provider Name and Address Organization Details Recorded Time 08/23/2024 text/html Patient is under going cardiac rehabilitation following recent hospitalization. Previously experienced issues with low blood pressure, leading to medication adjustments including discontinuation of Coreg and initiation of metoprolol 50mg daily. Lasix was also discontinued for regular use and changed to as-needed basis. Patient reports feeling pretty good overall, despite a current family-wide cold. Patient has been experiencing elevated blood glucose levels, with readings exceeding 200 mg/dL despite adjustments to insulin regimen. Currently using 15 units of Tresiba at night and administering 10 units of rapid-acting insulin when blood glucose exceeds 200 mg/dL, which occurs once or twice daily. He is not doing this related to his meals. Patient utilizes a continuous glucose monitor. Looking at his last several days it appears she is having quite elevated postprandial glucoses well over 200, some morning numbers down near 50 Patient reports mild leg swelling, which is manageable. Denies chest pain or palpitation at rest or with exertion. No coughing congestion dyspnea. No PND orthopnea. Has completed three cardiac rehabilitation sessions, which include treadmill and bike exercises with blood pressure and heart rate monitoring. BEATRSI SANTOS MD [address], [place], [address], [facility]. 08/23/2024 16:49:55
--- OUTSIDE RECORDS SUMMARY | 2024-09-08 11:03 | XMS_ITS | Encounter Summary ---
Author Organization [facility] Address [facility] [place] [address] Care Team Providers Care Invoicing Machine Operator Name Role Phone Mauro Berumen MD Primary Care Provider [phone] Encounter Details Date Type Department Care Team (Late st Contact Info) Description 06/02/2024 Notes Only Cardiology [facility] [place] [phone] Sascha Silva MD [facility] [place] [address] Social History Tobacco Use Types Packs/Day Years Used Date Smoking Tobacco: Never Assessed [facility] Utilities Answer Date Recorded In the past [...] Data If Hospital to which patient presented= [facility]: ED Walk In Date and Time of First Medical Contact: 06/02/2024 9:20 PM Medical History (prior to current presentation) Myocardial Infarction: Yes Diabetes Mellitus: Yes Prior Percutaneous Coronary Intervention: Yes Prior Coronary Artery Bypass Graft: No Presenting Symptoms per OSH/EMS Free Text 855 PM acute on set pressure on chest. Presented to ED. Appears ashen. No contraindicationst to lytics. No cabg, 3X IA with JENNA, most recent 5 years ago. 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 to lab scientist STEMI Alert called: Yes Mosquito Sprayer Activated by: Carpenter Helper Maintenance Initial Disposition: Admit Mosquito Sprayer documented in this encounter Plan of Treatment Upcoming Encounters Date Type Department Care Team (Late st Contact Info) Description 09/29/2024 2:00 PM EST Office Visit Cardiology at [address] [address] Moi Falcon MD [facility] [place] [address] documented as of this encounter Visit Diagnoses Not on filedocumented in this encounter Care Teams Invoicing Machine Operator Relationship Specialty Start Date End Date Mauro Berumen MD [address] [place] [address] PCP - General Family Medicine 06/02/24 documented as of this encounter
--- OUTSIDE RECORDS SUMMARY | 2024-09-08 11:03 | XMS_ITS | Encounter Summary ---
Author Organization [facility] Address [address] [place] [address] Care Team Providers Care Marketing Operations Coordinator Name Role Phone Jesu Guerar [facility] Primary Care Provider [phone] Encounter Details Date Type Department Care Team (Late st Contact Info) Description 10/31/2023 Lab Requisition [facility] Pathology & Laboratory Medicine - [facility] [address] [place] [address] Yousif Carlin PA [address] [place] [address] [address] [place] [phone] Melanocytic nevi, unspecified Social History Tobacco Use [...] management options, if applicable. 11/04/2023 9:43 EDT [facility] Final Diagnosis A. SKIN OF CHEEK, LEFT, SHAVE BIOPSY: - Seborrheic keratosis, pigmented. 11/04/2023 9:43 EDT [facility] Attestation By the signature below, the attending physician certifies that they have 1) personally conducted a gross and/or microscopic examination of the described specimen(s), and/or personally interpreted the results of laboratory testing of the described specimen(s), and 2) personally rendered or confirmed the above diagnosis. 11/04/2023 9:43 [facility] at 0943 Microscopic Description The [...] dermis and patchy lichenoid inflammation. 11/04/2023 9:43 [facility] Clinical History Atypical nevus, history melanoma; clinical diagnosis code: D22.9 11/04/2023 9:43 [facility] Gross Description A. Received in formalin labelled with proper patient identification (initials K, K) and L cheek is a 1.3 x 1.0 x 0.1 cm irregular shave of mottled rodriguez white to dark brown skin. The margin is inked. The specimen is trisected and entirely submitted in A1. HENOK GOLDEN(ASC) 11/03/2023 9:00 11/04/2023 9:43 [facility] Performing Lab [facility] 11/04/2023 9:43 [facility] Scanned Images 11/04/2023 9:43 T [facility] Tissue SPECIMEN FROM SKIN / Unknown 10/31/2023 14:10 EDT 10/31/2023 23:24 EDT us Yousif WHITING PATHOLOGY ORDERABLES Final Result [facility] [address] [place] [address] documented in this encounter Visit Diagnoses Diagnosis Melanocytic nevi, unspecified documented in this encounter Care Teams Marketing Operations Coordinator Relationship Specialty Start Date End Date Jesu Guerra, DNP [address] [place] [address] PCP - General Family Medicine - Primary Care 10/03/23 documented as of this encounter
--- OUTSIDE RECORDS SUMMARY | 2024-09-08 11:03 | XMS_ITS | Continuity of Care Document ---
Author Organization [place] [facility] Address [address] [place] [address] Assessment No assessment recorded. Plan of Treatment Reminders Order Date Submit Date Provider Last Modified By Organization Details Last Modified Time Details Appointments Office Visit 30 2024 08:30A M MAURO SANTOS Not available Not available Not available Lab hemoglobi n A1C, fingersti ck 2023 024 [facility], [address] [place] [address], [address], 06/24/2024 12:05:37 Referral None recorded. Procedures None recorded. Surgeries None recorded. Imaging None recorded. Medication Orders None recorded. Patient TargetsNo targets recorded. Patient Instructions Encounter Date Encounter Id Patient Instructions Last Modified By Organization Details Last Modified Time 06/24/2024 [id number] Dear Arturo Mehta, Thank you for visiting [...] with cardiac surgery on July 20 at [facility] for further evaluation and potential clearance to [...] hemoglobin A1C 7.4 % <5.7 Not Available [address], [address], 06/24/2024 11:59:16 06/02/20 24 06/02/2024 vrad repor t Patien t Name: Erica Hernandez Unit #: [id number] Loc: ER Orderi ng Provid er: Acctrace t #: [id number] Status : REG ER Primar y [...] MD. Lanette ng:Mikey Luque MD Access ion#=[id number] Ordere d By: CC: ------ ------ [...] the addres s above. Thank- you. sergio [facility] [address], [place], [address] 06/07/2024 08:13:56 06/03/20 24 06/03/2024 XR, chest , 1 view Patien t Name: Erica Hernandez Unit #: [id number] Loc: ER Lanette bernard Provid er: Moises Hua t #: [id number] Status : DEP ER Primar y Care [...] the addres s above. Thank- you. [email or web address] [facility] [address] , [place], [address] 08/17/2024 08:20:17 Result Notes None recorded. Problems Name Problem SNOMED Code Status Onset Date Resolution Date Notes Provider Name and Address Organization Details Recorded Time Coronary artery bypass grafts x 3 Active 06/[address], [place], [address], [facility] 13:15:27 Type 2 diabetes mellitus 05337120 Active [address], [place], [address], [facility] 4 16:23:15 Coronary arterioscle rosis 44233453 Active 2023 OH x 3, with stents Pacer AICD LDL 34 04/[address], [place], [address], [facility], [facility]. 5 12:00:46 Essential hypertensio n 39049599 Active [address], [place], [address], [facility], [facility]. 4 23:10:54 Chronic left-sided congestive heart failure 2791740 Active 2023 ICD. last echo 31% 08/[address], [place], [address], [facility], [facility]. 5 13:17:19 Malignant melanoma 588289344 Active 2016 left scalp MD [address], [place], [address], [facility], [facility]. 4 14:10:50 Adult health examination Active [address], [place], [address], [facility], [facility]. 4 11:43:13 Onychomycos is 085563840 Active 2023 toenails MD [address], [place], [address], [facility], [facility]. 4 11:47:27 Neuropathy due to diabetes mellitus 194496950 Active [address], [place], [address], [facility], [facility]. 4 16:23:51 Mixed anxiety and depressive disorder 346192605 Active [address], [place], [address], [facility] 4 16:27:39 Ambulatory continuous glucose monitoring of interstitia l tissue fluid Active [address], [place], [address], [facility] 4 23:10:45 Hearing loss 68472432 Active [address], [place], [address], [facility] 4 23:11:04 Notes:Some problems listed i n Document: #[id number] could not be added to this patient's [...] oral route as needed. 08/23 completed Per [facility] 06/21/24 Not Available Not Available Not Available carvedilo l 12.5 mg tablet TAKE ONE TABLET BY MOUTH TWICE A DAY 08/23 completed Stopped per [facility]/c summary 08/16/24 Not Available Not Available Not Available metoprolo l succinate ER 50 mg tablet,ex tended release 24 hr Take 1 tablet every day by oral route. active Per [facility] [place] summary 08/16/24 Not Available Not Available [...] pain times 3 then call 911. Per [facility] d/c summary 08/16/24 Not Available Not Available [...] hours by oral route. 08/17 completed Per [facility] [place] 06/21/24 Not Available Not Available Not [...] 2nd Gen Pen Needle 32 gauge x /32 USE DIRECTED active Not Available Not Available [...] Updated DateTime 4 167.64 cm 34.4 kg/m2 74978.1 7 g 97.5 [degF] 98 % 98 % 88 /min 124 mm[Hg] 78 mm[Hg] JENNIFER SORENSEN MA [facility] 4 11:13:30 Social History Question Answer Notes LastModified by Organizat ion Details LastModified Time Tobacco Smoking Status Former Smoker GUERO MENDEZ, [facility] 08/23/2024 11:37:56 Do You Have An Advance [...] PF, jeferson-sucrose, 30 mcg/0.3 mL 4 completed MAURO SANTOS MD [address], [place], [address], [facility] 08/30/2023 19:29:40 Tdap 4 completed MAURO SANTOS MD [facility] [address], [place], [address], [facility], [facility] 12/01/2023 18:15:36 Influenza, high-dose, trivalent, PF 4 completed HANNAH [employer]AS [employer] null, [facility] 05/18/2024 11:35:26 COVID-19, mRNA, LNP-S, PF, jeferson-sucrose, 30 mcg/0.3 mL 4 completed HANNAH [employer] [employer] null, [facility] 05/18/2024 11:35:26 Pneumococcal conjugate PCV20, polysaccharide NPE196 conjugate, adjuvant, PF 3 completed JENNIFER SORENSEN MA null, [facility], [facility] 08/12/2023 15:42:12 influenza, unspecified formulation 3 completed JENNIFER SORENSEN MA null, [facility], [facility] 08/26/2023 11:13:50 Past Encounters Encounter ID Performer Location Encounter Start Date Encounter Closed Date Diagnosis/Indication Diagnosis SNOMED-CT Code Diagnosis ICD10 Code Diagnosis Note [id number] MAURO SANTOS MD [address] [address] 06/24/2024 10:27:47 06/24/2024 11:47:01 Type 2 diabetes mellitus 24795084 E11.9 A1c 7.4%. Blood sugars been more [...] regimen & diabetes treatment plan Coronary arteriosclerosis 45973588 I25.10 Post CABG, appears to doing well. No anginal symptoms, nothing to suggest CHF. Follow-up with cardiothor acjess surgery as scheduled, he is under the understand ing that they will refer him to cardiac rehab at that time Essential hypertension 34747053 I10 No changes, recent labs up-to-date Health Concerns Section Related Observation LastModified by Organization Detai ls LastModified Time None Recorded Concern Status LastModified by Organization Details LastModified Time None Recorded Payers Encounter Date Sequence Insurance Name Policy Number Policy Suazo Covered Member ID Suazo Member ID Guarantor Name 06/24/2024 1 [facility] (MEDICARE REPLACEMENT/A DVANTAGE - PPO) [id number] Arturo Mehta [id number] Arturo Shankar Tyson Notes Date Note Type Note Provider Name [...] wounds. MAURO SANTOS MD [address], [place], [address], [facility]. 06/29/2024 10:37:50
--- OUTSIDE RECORDS SUMMARY | 2024-09-15 10:38 | XMS_ITS | Clinical Summary ---
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 (HFrEF, <= 40%) 06/05/2024 Coronary artery disease invo lving [place] coronary artery of [place] heart without angina pectoris 06/05/2024 Type 2 diabetes mellitus 06/05/2024 STEMI (ST elevation myocardial infarction) 06/02 Encounters Date Type Department Care Team Description 08/14/2024 7:42 PM EST - 08/16/2024 2:48 PM EST Hospital Encounter Heart and Vascular Unit Level 3 [place] [phone] Jim Benites MD Vinod, Poornima, MD Elevated troponin; Chest pain, unspecified type Discharge Disposition: Home 08/13/2024 Telephone Cardiology at [address] [phone] Katy Maurer APRN 08/13/2024 [place] [phone] 07/20/2024 3:20 PM EST Office [place] [phone] Bobby Loja MD Post-operative state 07/20/2024 Notes Only Cardiology at [address] [phone] Esha Jones RN 07/20/2024 Travel 06/15/2024 Unscheduled Encounter Cardiology at [address] [phone] Ross Corbin PA Cardiac resynchronization therapy defibrillator (PAINTER SIGN MAINTENANCE-D) in place [Z95.810] 06/02/2024 11:09 PM EDT - 06/21/2024 1:07 PM EST Hospital Encounter Heart and Vascular Unit Level 4 [place] [address] Nuha Shen MD Costa, MD Lucio Moore Monika A, MD Flint, MD Fitz Duval, MD Freedom Lopez, Bobby Santiago MD ST elevation myocardial infarction (STEMI), unspecified artery; Coronary artery disease involving [place] coronary artery of [place] heart without angina pectoris; S/P CABG x 3 Discharge Disposition: Home with VNA from Last 3 Months Social History Tobacco Use Types Packs/Day Years Used Date Smoking Tobacco: Former Cigarettes Smokeless Tobacco: Never Tobacco Cessation:Counseling Given: Not Answered [facility] Utilities Answer Date Recorded In the past 12 months has th e [employer], gas, oil, or water [employer] threatened to shut off services in your [...] living in a prison (including now)? No 08/16/2024 IPV Inpatient Questions [...] 2:00 PM EST Office Visit Cardiology at [address] [phone] Moi Falcon MD [facility] [place] [address] Health Maintenance Due Date Last Done Comments [...] history exists Medical Devices Implanted Type Area Management Nurse Rn Device Identifier Shelf Expiration Date Model / Serial / Lot Mdt Snoobeia Mri Quad Crtd-06/16/2019 Implanted:06/16/2019 (Quantity not on file) Cardiac Resynchronizati on Therapy - Defibrillator Chest Medtronic Cardio - [id number] / [id number] / Description:When scanned at [facility] ([place]), this SureScan System ([id number] and leads 4076, 6935M, and 4298) can [...] Clip 35mm Closure Exclusion System Preloaded Atriclip ([id number]) (Autoreq) - [id number] Implanted:Qty: 1 on 06/14/2024 by Bobby Loja MD at [facility] IMPLANTS N/A: Heart ATRICURE - ATRICURE 03/04/2027 [id number] / / [id number] Cable,Cut,Edg,Blnt,S s,3tpr ([id number]) - [id number] Implanted:Qty: 1 on 06/14/2024 by Bobby Loja MD at [facility] IMPLANTS Midline: Sternum [employer] - [id number] 09/10/2028 [id number] / / [id number] Mdt 4076 Capsurefix Novus Lead-06/16/2019 Implanted:Qty: 1 on 06/16/2019 Lead Chest Medtronic Cardio - [id number] / [id number] / Description:Atrial Lead 4076 See Generator Tab for MRI Conditions Octaviano Hawkins RT (R)(MR) 06/04/2024 Janett 6935m Lead-06/16/2019 Implanted:Qty: 1 on 06/16/2019 Lead Chest Medtronic Cardio - 4287 6935M / [id number] / Description:RV Lead See Generator Tab for MRI Conditions Octaviano Hawkins RT (R)(MR) 06/04/2024 t 4298 Attain Performa Lead-06/16/2019 Implanted:Qty: 1 on 06/16/2019 Lead Chest Medtronic Cardio - [id number] / [id number] / Description:LV Lead See Generator Tab [...] AM EST BLOOD GAS ARTERIAL POC Routine 06/15/2024 9:19 AM EST POC, GLUCOSE Routine 06/15/2024 [...] AM EST BLOOD GAS ARTERIAL POC Routine 06/15/2024 1:46 AM EST POC, GLUCOSE Routine 06/15/2024 1:05 AM EST POC, GLUCOSE Routine 06/15/2024 12:16 AM EST LIPID PANEL (REFLEX DIRECT LDL) Routine 06/03/2024 2:13 AM EDT from Last 3 Months or Most Recently Relevant to Health Maintenance Results * (ABNORMAL) POC, GLUCOSE (08/16/2024 12:03 PM EST) Only the most recent of71 resultswithin the time period is included. [facility] Glucometer, POC 263(H) 65 - 199 mg/dL 08/16/2024 12:03 PM EST [facility] Comment:Supplemental ranges: <140 mg/dL before meals <180 mg/dL all other times of the day. Blood CAPILLARY BLOOD / Unknown 08/16/2024 12:03 PM EST 08/16/2024 12:03 PM EST Evelyn Mckinnon MD POINT OF CARE TEST O RDERABLES [facility] [place] [address] * EKG 12 Lead (08/16/2024 8:44 AM EST) Only the most recent of2 resultswithin the time period is included. Ventricular rate 80 BPM MUSE SYSTEM Atrial Rate 80 BPM MUSE SYSTEM P-R Interval 180 ms MUSE SYSTEM QRS Duration 90 ms MUSE SYSTEM Q-T Interval 374 ms MUSE SYSTEM QTC Calculated (Bezet) 431 ms MUSE SYSTEM Calculated P [place]arton 63 degrees MUSE SYSTEM Calculated R [place] 22 degrees MUSE SYSTEM Calculated T [place]arton 129 degrees MUSE SYSTEM INTERPRETATION AV dual-paced rhythm Abnormal ECG When compared with ECG of 14-AUG-2024 23:57, No significant change was found Confirmed by MD JEAN, KRISS ([id number]) on 08/16/2024 9:37:14 AM MUSE SYSTEM 08/16/2024 8:44 AM EST 08/16/2024 9:37 AM EST Evelyn Mckinnon MD ECG ORDERABLES Performing Organization Address [facility] Co de Phone Number MUSE SYSTEM * Scan Doc: Telemetry Strips (08/16/2024 8:07 AM EST) Only the most recent of25 resultswithin the time period is included. Narrative 08/16/2024 8:07 AM EST Ordered by an unspecified provider. Scanning Provider MEDIA MGR SCAN EXT O RDR/RSLT * Heparin (unfractionated) Level (08/16/2024 12:32 AM EST) Only the most recent of5 resultswithin the time period is included. UF [...] HEMATOLOGY ORDERABLE S [facility] [place] [address] * (ABNORMAL) CBC (with Diff) (08/16/2024 12:32 AM EST) Only the most recent of4 resultswithin the time period is included. White Blood Cell 8.55 4.00 - 9.50 x10(3)/mc L 08/16/2024 12:47 AM [facility] Red Blood Cell 4.17(L) 4.58 - 5.54 x10(6)/mc L 08/16/2024 12:47 AM [facility] Hemoglobin 12.3(L) 13.7 - 16.5 g/dL 08/16/2024 12:47 AM [facility] Hematocrit 37.9(L) 40.5 - 48.5 % 08/16/2024 12:47 AM [facility] Mean Cell Volume 90.9 82.9 - 93.1 fL 08/16/2024 12:47 AM [facility] Mean Cell Hemoglobin 29.5 27.5 - 32.1 pg 08/16/2024 12:47 AM [facility] Mean Cell Hemoglobin Concentration 32.5 32.0 - 35.7 g/dL 08/16/2024 12:47 AM [facility] Platelet 192 145 - 357 x10(3)/mc L 08/16/2024 12:47 AM [facility] Mean Platelet Volume 9.5 7.6 - 12.9 fL 08/16/2024 12:47 AM [facility] RDW Standard Deviation 44.7 36.0 - 45.0 fL 08/16/2024 12:47 AM [facility] RDW coefficient of variation 13.2 11.4 - 13.8 % 08/16/2024 12:47 AM [facility] NRBC% auto 0.0 % 08/16/2024 12:47 AM [facility] NRBC Absolute <0.01 <0.01 x10(3)/mc L 08/16/2024 12:47 AM [facility] Neutrophil % 53.8 % 08/16/2024 12:47 AM [facility] Neutrophil Absolute (ANC) - Automated 4.61 1.70 - 6.10 x10(3)/mc L 08/16/2024 12:47 AM [facility] Lymph % 30.1 % 08/16/2024 12:47 AM [facility] Lymph Absolute 2.57 0.90 - 3.20 x10(3)/mc L 08/16/2024 12:47 AM [facility] Monocyte % 10.2 % 08/16/2024 12:47 AM [facility] Monocyte Absolute 0.87 0.30 - 0.90 x10(3)/mc L 08/16/2024 12:47 AM [facility] Eos % 4.8 % 08/16/2024 12:47 AM [facility] Eos Absolute 0.41(H) 0.00 - 0.40 x10(3)/mc L 08/16/2024 12:47 AM [facility] Basophil % 0.7 % 08/16/2024 12:47 AM [facility] Baso Absolute 0.06 0.00 - 0.10 x10(3)/mc L 08/16/2024 12:47 AM EST [facility] Immature Gran % 0.4 % 12:47 AM [facility] Immature Gran Absolute <0.04 0.00 - 0.04 x10(3)/mc L 08/16/2024 12:47 AM [facility] Blood VENOUS BLOOD SPECIMEN / Unknown Venipuncture / Unknown 08/16/2024 12:32 AM EST 08/16/2024 12:41 AM EST Octaviano Quiñones MD HEMATOLOGY ORDERABLE S [facility] [place] [address] * Magnesium (08/16/2024 12:32 AM EST) Magnesium 0.85 0.69 - 1.07 mMol/L 08/16/2024 1:12 AM [facility] Blood VENOUS BLOOD SPECIMEN / Unknown Venipuncture / Unknown 08/16/2024 12:32 AM EST 08/16/2024 12:41 AM EST Evelyn Mckinnon MD CHEMISTRY ORDERABLES Performing Organization Address City/[facility]/ZIP Co de Phone Number [facility] [place] [address] * (ABNORMAL) Basic Metabolic Panel (08/16/2024 12:32 AM EST) Only the most recent of10 resultswithin the time period is included. Glucose 210(H) 65 - 199 mg/dL 08/16/2024 1:12 AM [facility] Comment:Glucose Concentratio n >=200 mg/dL plus symptoms is consistent with Diabetes Mellitus. Blood Urea Nitrogen 23(H) 10 - 20 mg/dL 08/16/2024 1:12 AM [facility] Creatinine 1.02 0.80 - 1.50 mg/dL 08/16/2024 1:12 AM EST [facility] Sodium 136 135 - 145 mMol/L 08/16/2024 1:12 AM [facility] Potassium 4.3 3.5 - 5.0 mMol/L 08/16/2024 1:12 AM [facility] Chloride 101 98 - 107 mMol/L 08/16/2024 1:12 AM [facility] Carbon Dioxide 25 22 - 31 mMol/L 08/16/2024 1:12 AM [facility] Anion Gap 10 5 - 15 mMol/L 08/16/2024 1:12 AM [facility] Calcium 8.9 8.5 - 10.5 mg/dL 08/16/2024 1:12 AM [facility] Est Glomerular Filtration Rate - Male 81 mL/min/1. 73 m?? 08/16/2024 1:12 AM [facility] Comment: This patient's estimated GFR [...] 12:32 AM EST 08/16/2024 12:41 AM EST Evleyn Mckinnon MD CHEMISTRY ORDERABLES [facility] [place] [address] * ECHO COMPLETE W CONTRAST (08/15/2024 12:57 PM EST) EF 31 HEARTLAB SYSTEM Anatomical Region Laterality Modality Cardiac Other 08/15/2024 12:0 0 PM EST Narrative 08/15/2024 1:42 PM EST [address] [place] [address] ? Echocardiogram Report Name: GEORGE MEHTA ?Study Date: 08/15/2024 12:00 PMBP: 118/72 mmHg : 1955 ? Height: 168 cm ? Account: [id number] Age: 69 yrs ? Weight: 93 kg Gender: Male ?BSA: 2.0 m2 Ordering Physician: OCTAVIANO QUIÑONES Referring Physician: ANA COLON Performed By: Sandra Worthy RDCS Reason For Study: Elevated troponin Exam Location: [facility]. Interpretation Summary 1. Left ventricular systolic function [...] side images at end of report). Procedure Complete-17450. Image enhancement Definity was used for left [...] Note Jim Benites MD - 08/15/2024 [address] [place] [address] Echocardiogram Report Name: GEORGE MEHTA Study Date: 2:00 PMBP: 118/72 mmHg : 1955 Height: 168 cm Account: [id number] Age: 69 yrs Weight: 93 kg Gender: Male BSA: 2.0 m2 Ordering Physician: OCTAVIANO QUIÑONES Referring Physician: ANA COLON Performed By: Sandra Worthy RDCS Reason For Study: Elevated troponin Exam Location: [facility]. Interpretation Summary 1. Left ventricular systolic function [...] side images at end of report). Procedure Complete-18717. Image enhancement Definity was used for left [...] value can be found in the [facility] Test Catalog Troponin - [email or web address] Reference: Fourth [place] Definition of Myocardial Infarction. Journal of the [place] College [employer] 2018;72:0876-0311 Blood VENOUS BLOOD SPECIMEN / Unknown Venipuncture / Unknown 08/15/2024 5:00 AM EST 08/15/2024 5:04 AM EST Octaviano Quiñones MD CHEMISTRY ORDERABLES [facility] [place] [address] * Ferritin (08/15/2024 4:59 AM EST) Ferritin 70 31 - 409 ng/ml 08/15/2024 6:09 AM EST [facility] Blood VENOUS BLOOD SPECIMEN / Unknown Venipuncture / Unknown 08/15/2024 4:59 AM EST 08/15/2024 5:04 AM EST Octaviano Quiñones MD CHEMISTRY ORDERABLES [facility] [place] [address] * (ABNORMAL) Iron and TIBC (08/14/2024 9:40 PM EST) Pathologist [facility] Iron 62 45 - 160 mcg/dL 08/15/2024 2:18 AM [facility] TIBC 354 250 - 450 mcg/dL 08/15/2024 2:18 AM [facility] Iron Saturation 18(L) 20 - 50 % 2:18 AM EST [facility] Blood VENOUS BLOOD SPECIMEN / Unknown Venipuncture / Unknown 08/14/2024 9:40 PM EST 08/14/2024 9:45 PM EST Octaviano Quiñones MD CHEMISTRY ORDERABLES Performing Organization Address City/[facility]/ZIP Co de Phone Number [facility] [place] [address] * (ABNORMAL) Hemoglobin A1c (08/14/2024 9:40 PM EST) Pathologist [facility] Hemoglobin A1c 6.9(H) 4.3 - 5.6 [...] red blood cell turnover may not be door to door sales representative of glycemic control. Reference Interval: 4.3 - 5.6% 5.7 - 6.4%: Consistent with prediabetes >=6.5%: Consistent with diagnosis of diabetes mellitus Estimated Average Glucose 151 mg/dL 08/14/2024 10:06 PM EST [facility] Blood VENOUS BLOOD SPECIMEN / Unknown Venipuncture / Unknown 08/14/2024 9:40 PM EST 08/14/2024 9:46 PM EST Octaviano Quiñones MD CHEMISTRY ORDERABLES [facility] [place] [address] * External Cardiology Result (08/13/2024 1:38 PM EST) Anatomical Region Laterality Modality Other Historical Provider EXTERNAL CARDIOLO GY RESULT * XR Chest PA & Lateral (Generic) (06/17/2024 1:46 PM EST) Express Fit WORKSTATION ID [id number] RAD Anatomical Region Laterality Modality Chest N/A [...] who have questions please contact the health point of care technician that requested your imaging first. ? Electronically signed by: Joss[facility] Spence [facility] ([phone]), at 06/17/2024 4:49 PM Narrative 06/17/2024 4:49 [...] patients who have questions please contactthe health point of care technician that requested your imaging first. Keila Hanley APRN IMG DX ORDERABLES * (ABNORMAL) Hemogram (06/17/2024 2:39 AM EST) Only the most recent of2 resultswithin the time period is included. White Blood Cell 13.53(H) 4.00 - 9.50 x10(3)/mc L 06/17/2024 2:53 AM [facility] Red Blood Cell 3.55(L) 4.58 - 5.54 x10(6)/mc L 06/17/2024 2:53 AM [facility] Hemoglobin 10.8(L) 13.7 - 16.5 g/dL 06/17/2024 2:53 AM [facility] Hematocrit 33.0(L) 40.5 - 48.5 % 06/17/2024 2:53 AM [facility] Mean Cell Volume 93.0 82.9 - 93.1 fL 06/17/2024 2:53 AM [facility] Mean Cell Hemoglobin 30.4 27.5 - 32.1 pg 06/17/2024 2:53 AM [facility] Mean Cell Hemoglobin Concentration 32.7 32.0 - 35.7 g/dL 06/17/2024 2:53 AM [facility] Platelet 101(L) 145 - 357 x10(3)/mc L 06/17/2024 2:53 AM [facility] Mean Platelet Volume 10.4 7.6 - 12.9 fL 06/17/2024 2:53 AM [facility] RDW Standard Deviation 48.4(H) 36.0 - 45.0 fL 06/17/2024 2:53 AM [facility] RDW coefficient of variation 14.1(H) 11.4 - 13.8 % 06/17/2024 2:53 AM [facility] NRBC% auto 0.0 % 06/17/2024 2:53 AM [facility] NRBC Absolute <0.01 <0.01 x10(3)/mc L 06/17/2024 2:53 AM [facility] Blood VENOUS BLOOD SPECIMEN / Unknown Venipuncture / Unknown 06/17/2024 2:39 AM EST 06/17/2024 2:43 AM EST Bobby Loja MD HEMATOLOGY ORDERABLE S Performing Organization Address City/[facility]/ZIP Co de Phone Number [facility] [place] [address] * Lactate, Whole Blood (06/17/2024 2:39 AM EST) Only the most recent of3 resultswithin the time period is included. Lactate, Whole Blood 1.3 0.5 - 2.2 mmol/L 06/17/2024 2:46 AM EST [facility] Blood VENOUS BLOOD SPECIMEN / Unknown Venipuncture / Unknown 06/17/2024 2:39 AM EST 06/17/2024 2:43 AM EST Bobby Loja MD CHEMISTRY ORDERABLES Performing Organization Address [facility] Co de Phone Number [facility] [place] [address] * (ABNORMAL) Cooximetry, POC (06/15/2024 9:31 AM EST) Only the most recent of2 resultswithin the time period is included. pO2, Coox 38 mmHg 06/15/2024 9:34 AM [facility] Hemoglobin, Coox 12.9(L) 13.7 - 16.5 g/dL 06/15/2024 9:34 AM [facility] Oxyhemoglobin, Coox 72.1 % 06/15/2024 9:34 AM [facility] Carboxyhemoglo bin, Coox 0.9 % 06/15/2024 9:34 AM [facility] Comment: Nonsmokers: 0.5-1.5% COHB ?? Smokers: Variable ??but usually less than 10% ?? Toxic: 20-30% COHB ?? Lethal: Greater than 60% COHB Methemoglobin, Coox 0.3 <=1.5 % 06/15/2024 9:34 AM [facility] Blood (Mixed Venous) 06/15/2024 9:31 AM EST 06/15/2024 9:34 AM EST Bobby Loja MD POINT OF CARE TEST O RDERABLES [facility] [place] [address] * (ABNORMAL) Blood Gas, Arterial POC (06/15/2024 9:19 AM EST) Only the most recent of2 resultswithin the time period is included. pH, Arterial 7.31(L) 7.35 - 7.45 06/15/2024 9:21 AM [facility] PCO2, Arterial 36 35 - 45 mmHg 06/15/2024 9:21 AM [facility] PO2, Arterial 94 85 - 104 mmHg 06/15/2024 9:21 AM [facility] Bicarbonate, Arterial 18.0(L) 20.0 - 26.0 mmol/L 06/15/2024 9:21 AM [facility] Base Excess, Arterial -8.2(L) -3.0 - 3.0 mmol/L 06/15/2024 9:21 AM [facility] Hemoglobin, Arterial 12.7(L) 13.7 - 16.5 g/dL 06/15/2024 9:21 AM [facility] Oxyhemoglobin, Arterial 96.0 94.0 - 97.0 % 06/15/2024 9:21 AM [facility] Carboxyhemoglobin , Arterial 0.5 % 06/15/2024 9:21 AM [facility] Comment: Nonsmokers: 0.5-1.5% COHB ?? Smokers: Variable ??but usually less than 10% ?? Toxic: 20-30% COHB ?? Lethal: Greater than 60% COHB Methemoglobin, Arterial 0.3 <=1.5 % 06/15/2024 9:21 AM [facility] Sodium, Arterial 136 135 - 145 mmol/L 06/15/2024 9:21 AM [facility] Potassium, Arterial 4.0 3.5 - 5.0 mmol/L 06/15/2024 9:21 AM EST [facility] Chloride, Arterial 106 98 - 107 mmol/L 06/15/2024 9:21 AM EST [facility] Lactate, Arterial 1.7 0.5 - 2.2 mmol/L 06/15/2024 9:21 AM EST [facility] Flow Rate 2.0 L/min 06/15/2024 9:21 AM EST [facility] IONIZED CALCIUM, ARTERIAL 1.14(L) 1.15 - 1.33 mmol/L 06/15/2024 9:21 AM EST [facility] Glucose, Arterial 193 65 - 199 mg/dL 06/15/2024 9:21 AM EST [facility] Comment:Glucose Concentratio n >=200 mg/dL plus symptoms is consistent with Diabetes Mellitus. Blood ARTERIAL BLOOD / Unknown 06/15/2024 9:19 AM EST 06/15/2024 9:20 AM EST Bobby Loja MD POINT OF CARE TEST O RDERABLES [facility] [place] [address] * XR Chest One View (06/15/2024 6:31 AM EST) Express Fit WORKSTATION ID [id number] RAD Anatomical Region Laterality Modality Chest N/A [...] who have questions please contact the health point of care technician that requested your imaging first. ? Narrative [...] patients who have questions please contactthe health point of care technician that requested your imaging first. Bobby Loja MD IMG DX ORDERABLES * Lipid Panel (Reflex Direct LDL) (06/03/2024 2:13 AM EDT) [facility] Cholesterol, Total 76 mg/dL 06/03/2024 3:02 AM [facility] Comment: Desirable: < 200 mg/dL Borderline High: 200 - 239 mg/dL High: > or = 240 mg/dL Triglyceride 75 mg/dL 06/03/2024 3:02 AM [facility] Comment: Normal: <150 mg/dL Borderline High: 150-199 mg/dL High: 200-499 mg/dL Very High: > or =500 mg/dL HDL Cholesterol 39 mg/dL 3:02 AM [facility] Comment:Males: High Risk: <4 0 mg/dL LDL Cholesterol 21 mg/dL 3:02 AM [facility] Comment: Desirable: <100 mg/dL Above Desirable: 100-129 mg/dL Borderline High: 130-159 mg/dL High: 160-189 mg/dL Very High: > or =190 mg/dL Note: LDL calculation updated to the NIH LDL formula as of 03/07/2024 Non-HDL Cholesterol 37 mg/dL 06/03/2024 3:02 AM [facility] Comment: Desirable: <130 mg/dL Above Desirable: 130-159 mg/dL Borderline High: 160-189 mg/dL High: 190-219 mg/dL Very High: > or = 220 mg/dL Blood VENOUS BLOOD SPECIMEN / Unknown IP Care Team Draw / Unknown 06/03/2024 2:13 AM EDT 06/03/2024 2:32 AM T [facility] - 06/03/2024 3:02 AM [...] artery disease) Shahnaz Scanlon [place] [address] from Last 3 Months or Most Recently [...] wishes to be Full Code Care Teams Swing Saw 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
--- OUTSIDE RECORDS SUMMARY | 2024-09-15 10:39 | XMS_ITS | Encounter Summary ---
Author Organization [facility] Address [facility] [place] [address] Care Team Providers Care Admissions Nurse Name Role Phone Mauro Berumen MD Primary Care Provider [phone] Reason for Visit * Auth/Cert (Routine) Specialty Diagnoses / Procedures Referred By Controdolfo t Referred To Contact Diagnoses Elevated troponin NSTEMI (non-ST elevated myocardial infarction) Pre-syncope s/p CABG Procedures EMERGENCY IPI Evelyn Mckinnon MD [facility] [place] [address] [facility] Referral ID Status Reason Start Date Expiration Date Visits Re quested Visits Authorized [id number] 1 1 Encounter Details Date Type Department Care Team (Latest Contact Info) Description 08/14/2024 7:42 PM EST - 08/16/2024 2:48 PM EST Hospital Encounter Heart and Vascular Unit Level 3 [place] [address] Jim Benites MD [facility] [place] [address] Evelyn Mckinnon MD [facility] [place] [address] Elevated troponin; Chest pain, unspecified type Discharge Disposition: Home Social History Tobacco Use Types Packs/Day Years Used Date Smoking Tobacco: Former Cigarettes Smokeless Tobacco: Never Tobacco Cessation:Counseling Given: Not Answered [facility] Utilities Answer Date Recorded In the past 12 months has [facility] [place] [employer], oil, or water [employer] threatened to shut off services in [...] time in the past 12 [facility], were you homeless or living in a halfway (including now)? No 08/16/2024 IPV Inpatient Questions [...] George Mehta Patient Age: 69 y.o. Language: Azerbaijani Admit date: 08/14/2024 Discharge date and time: [...] Provider Contact Information: Evelyn Mckinnon MD Pager #[phone] Discharge Diagnoses (Hospital Problems) and Secondary Diagnoses (Chronic Problems): Active Hospital Problems Diagnosis Elevated troponin NSTEMI (non-ST elevated myocardial infarction) Resolved Hospital Problems No resolved problems to display. Active Non-Hospital Problems Diagnosis Cardiac resynchronization therapy defibrillator (BOILER TENDER-D) - [employer] Amplia Cardiomyopathy, ischemic Acute on chronic heart failure with reduced ejection fraction (HFrEF, <= 40%) Coronary artery disease involving [place] coronary artery of [place] heart without angina pectoris Type 2 [...] of this mass after consultation with other litigation legal secretary experts and the decision was made by [...] area. The patient was transported to the [facility] in a critical but stable condition [...] of 8AM-5PM please call the Cardiology Clinic [phone] to speak with a nurse. All other hours please call the Hospital [facility] [phone] and ask to speak to the cardiovascular hospitalist on-call. For any emergent questions, please call 911 or visit your nearest emergency department/urgent care center Diet-diabetic, cardiac diet, 2 g salt and 2 L fluid restriction per day Activity-as tolerated Follow up Appointments: Doctor Where Phone # Date Time PCP Mauro Berumen MD [address] [place] [id number] Aug 23Friday 11.20 AM Production Supply Equipment Tender [facility] [phone] Sep 29, Friday 2 PM (arrive at 1.40 PM) Home oxygen therapy: N/A Arrangements for VNA/home care: N/A General Instructions None Future Appointments and Orders Future Appointments and Orders Future Appointments Provider Department Dept Phone 09/29/2024 2:00 PM Moi Falcon MD Cardiology at [facility] Arrive at: Booster Pump Operator Area [phone] Discharge References/Attachments Orthostatic Hypotension (Azerbaijani) Metoprolol Extended Release Oral Capsule (METOPROLOL SUCCINATE EXTENDED-RELEASE CAPSULE - ORAL) (Azerbaijani) Nitroglycerin Sublingual Tablet (NITROGLYCERIN - SUBLINGUAL) (Azerbaijani) More than 30 minutes were spent on this discharge including documentation, [id number] time with patient, patient education, psychiatric orderly, and coordination pharmacy, follow-up and other patient [...] of 8AM-5PM please call the Cardiology Clinic [phone] to speak with a nurse. All other hours please call the Hospital [facility] [phone] and ask to speak to the cardiovascular hospitalist on-call. For any emergent questions, please call 911 or visit your nearest emergency department/urgent care center Diet-diabetic, cardiac diet, 2 g salt and 2 L fluid restriction per day Activity-as tolerated Follow up Appointments: Doctor Where Phone # Date Time PCP Mauro Berumen MD [address] [place] [address] Aug 23Friday 11.20 AM Production Supply Equipment Tender [facility] [phone] Sep 29, Friday 2 PM (arrive at 1.40 PM) Home oxygen therapy: N/A Arrangements for VNA/home care: N/A * Attachments The following attachments cannot be sent through Care Everywhere. * Orthostatic Hypotension (Azerbaijani) * Metoprolol Extended Release Oral Capsule (METOPROLOL SUCCINATE EXTENDED- RELEASE CAPSULE - ORAL) (Azerbaijani) * Nitroglycerin Sublingual Tablet (NITROGLYCERIN - SUBLINGUAL) (Azerbaijani) documented in this encounter Medications at Time of Discharge Medication Sig Dispensed Refills Start Date End Date metFORMIN (Fortamet) 1,000 mg ER 24 hr [...] daily. furosemide (Lasix) 20 mg tablet Take 20 [...] mouth every 12 hours. 10 tablet 06/21/2024 documented as of this encounter Progress Notes [...] Pt seen for use of NIV at [facility] is semi independent with its use. [...] 10:24 AM EST CV HOSPITALIST 1 - [facility] DAILY PROGRESS NOTE Page [phone] to reach a provider 24/02 Admit Date: [...] of this mass after consultation with other litigation legal secretary experts and the decision was made by [...] area. The patient was transported to the [facility] in a critical but stable condition [...] based on the results. Disposition: Discharge Location: [facility] Basic Mobility Raw Score: 24 PT: OT: PCP Mauro Berumen MD [phone] Evelyn Mckinnon MD 08/15/2024 10:42 AM Addendum [...] Rehab for the first time ever, at [facility] ([place], [place]) today, on Friday morning (08/13/2024, 10:00am) [...] me from the Cardiac Rehab Office at [facility] ([place], [place]) to the ER at [facility] ([place], [place]) to get checked out and the [...] had my triple bypass heart surgery at [facility] on 06/14/2024, 8:48am with [facility] Cardiac Surgeon Dr. Bobby Loja, I should go to [facility] and see Dr. Loja again. I remember when I was at [facility] back in June last year (2023), and [...] of left parietal region, s/p resection (2017, [facility], [place], [place]), insulin-dependent DM2 on aspart insulin 20 units SQ tid before meals, tresiba insulin 30 units SQ daily, metformin 1000mg PO bid, and empagliflozin 25mg PO daily, with HbA1c 7.1% (06/06/2024, 3:33am), CAD s/p acute [place] #1 (09/2003, s/p stent x 1, [facility], [place], [place]). acute [place] #2 (03/2018, s/p stent x 1, [place], [place]). acute [place] #3 (01/2019, s/p stent x 1, [place]). acute [place] #4 (06/03/24,s/p 3vCABG, [facility], [place], [place])(CT Surgeon Dr. Bobby Loja, 06/14/2024, 8:48am). [...] 30-35% (as noted on 06/14/2024, 7:20am KAREN, [facility] CARDS [place]. Hosea Ardon), and chronic diastolic CHF, for which patient underwent AICD (06/2019, [facility], [place], [place]). Patient reports no paroxysmal nocturnal dyspnea, maintains a dry baseline weight of 210 pounds, and sleeps on a regular bed with 1 pillow all the time. Patient subsequently underwent left heart catheterization (06/02/2024, 12:42am, [facility] InterventionalCARDS [...] 3.5 guiding catheter and a 3.5 Fr [place] [facility] 20 Mhz using Manual pullback. Imaging was [...] 3.5 guiding catheter and a 3.5 Fr [place] [facility] [place] 20 Mhz using Manual pullback. Imaging was [...] be managed with medical therapy. (As per [facility] Interventional CARDS Dr. Nuha Shen). Patient subsequently underwent TTE (06/03/2024, 2:23am, [facility] CARDS [...] 6-14 large Aneurysmal 15-16 diffuse (As per [facility] CARDS fellow Dr. Sascha Silva). Patient subsequently underwent TTE (06/03/2024, 8:46am, [facility] CARDS [...] elevated left ventricular filling pressure). (As per [facility] [place]. Jonnie Jordan). Patient subsequently underwent cardiac catheterization (06/13/2024, 9:15am, [facility] Interventional [...] require modification of this regimen. (as per [facility] Interventional CARDS Dr. Nuha Shen). Patient subsequently underwent KAREN (06/14/2024, 7:20am, [facility] CARDS [...] of this mass after consultation with other litigation legal secretary experts and the decision was made by surgeon to explore the mass. 8. No significant valvular disease. Patient subsequently underwent biopsy (06/14/2024, 9:53am) of unusual fibrinous mass at the orifice of the left atrial appendage (as noted on 06/14/2024, 7:20am, [facility] [place]DS [place]. Hosea Ardon): A. Soft Tissue Mass, Mediastinal Mass, Excision: - Atrophic thymic tissue B. Heart, Atrial Appendage, Left, Excision: - Mild myocyte hypertrophy (as per [facility] Pathologist Dr. Sandra Salas). As noted above, patient underwent 3v CABG, excision of mediastinal tumor, and exploration / oversewof atrial appendage (06/14/2024, 8:48am, [facility] Cardiac Surgeon Dr. Bobby Loja). Patient now reports: I was at Cardiac Rehab for the first time ever, at [facility] ([place], [place]) today, on Friday morning (08/14/2024, 10:00am) [...] me from the Cardiac Rehab Office at [facility] ([place], [place]) to the ER at [facility] ([place], [place]) to get checked out and the [...] triple bypass heart surgery at [facility] 06/14/2024, 8:48am with [facility] Cardiac Surgeon Dr. Bobby Loja, I should go to [facility] and seeDr. Loja again. I remember when I was at [facility] back in June last year (2023), and [...] the patient on observation date 08/14/2024. In [facility] ER ([place], [place]), patient was afebrile at 37.0 degrees Celsius, HR 80, RR 20, O2 sat 97% on room air, and BP 117/61 (08/13/2024, 11:13am). Exam was noted for a clear and non-tender chest. Labs in [facility] ER ([place], [place]) included: WBC 9.25, N69 L19 M [...] 314 ng/L (08/14/2024, 6:00am). Additional testing in [facility] ER ([place], [place]) included: EKG (actual tracing not present in papers/documents transferred from [facility] ER ([place], [place]): Workup in the ED showed an EKG with pacing without T wave or ST segment changes pointing to occlusive cardiac disease; noticeable T wave inversion in multiple leads infero-lateral leads as seen prior. (as per [facility] Viry Adele Temple, SCIENCE AND OPERATIONS OFFICER). Patient was subsequently diagnosed with the following conditions @ [facility] ER ([place], [place]) on 08/13/2024: R/O acute NSTEMI. Acute [...] 08/14/2024, 8:43am). Patient was subsequently transferred from [facility] ([place], [place]) to [facility] [...] performed by Bobby Loja MD [facility] MAIN OR PRO CABG, ARTERY-VEIN, TWO N/A 06/14/2024 @CABG, TWO VENOUS GRAFTS & ARTERIAL GRAFT (WRVU 7.93) [facility] ENDOSCOPY W/VIDEO-ASST VEIN HARVEST, CABG N/A 06/14/2024 ENDOSCOPIC HARVEST VEIN(S) FOR CABG (WRVU 0.31) performed by Bobby Loja MD at [facility] MAIN OR PRO EXC MEDIASTINAL TUMOR N/A 06/14/2024 @EXCISION OF MEDIASTINAL TUMOR (WRVU 19.55) performed by Bobby Loja MD at [facility] MAIN OR PRO INSERT INTRA-AORTIC BALLOON ASST DEVICE PERCUTANEOUS N/A 06/13/2024 @INSERTION OF IABP,PERCUTANEOUS (WRVU 4.84) performed by Nuha Shen MD at [facility] CATH LABS PRO UNLISTED CARDIAC SURG PROCEDURE N/A 06/14/2024 EXPLORATION AND OVERSEW ATRIAL APPENDAGE (WRVU 5.94) [facility] Family History: Patient's father is [...] 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 Patient is retired with physical disability after sustaining his third acute [place] (01/2019, s/p stent x 1, [place], [place]), and now suffers from chronic systolic CHF with reduced LVEF 30- 35% (as noted on 06/14/2024, 7:20am KAREN, [facility] [place]. Hosea Ardon), and chronic diastolic CHF, for which patient underwent AICD (06/2019, [place], [place]). Patient was to his first for 4 years before divorce; together, they have a 45 years old son, who is alive and well. Patient is to his second for 20 years; together, they have no children living or . Patient lives at home with his second in their own home in [place], and ambulates without assistance from cane, walker, or wheelchair. Patient can drive a car independently. Patient comes to [facility] bd #373-A as a direct ambulance transfer from [facility] ([place], [place]) today, 08/14/2024. REVIEW OF SYSTEMS: Review [...] of left parietal region, s/p resection (2017, [facility], [place], [place]), insulin-dependent DM2 on aspart insulin 20 units SQ tid before meals, tresiba insulin 30 units SQ daily, metformin 1000mg PO bid, and empagliflozin 25mg PO daily, with HbA1c 7.1% (06/06/2024, 3:33am), CAD s/p acute [place] #1 (09/2003, s/p stent x 1, [facility], [place], [place]). acute [place] #2 (03/2018, s/p stent x 1, [place], [place]). acute [place] #3 (01/2019, s/p stent x 1, [place]). acute [place] #4 (06/03/24,s/p 3vCABG, [facility], [place], [place])(CT Surgeon Dr. Bobby Loja, 06/14/2024, 8:48am). [...] 30-35% (as noted on 06/14/2024, 7:20am KAREN, [facility] [place]. oHsea Ardon), and chronic diastolic CHF, for which patient underwent AICD (06/2019, [facility], [place], [place]). Patient reports no paroxysmal nocturnal dyspnea, maintains a dry baseline weight of 210 pounds, and sleeps on a regular bed with 1 pillow all the time. Patient subsequently underwent left heart catheterization (06/02/2024, 12:42am, [facility] InterventionalCARDS [...] 3.5 guiding catheter and a 3.5 Fr [place] [facility] 20 Mhz using Manual pullback. Imaging was [...] 3.5 guiding catheter and a 3.5 Fr [place] [facility] [place] 20 Mhz using Manual pullback. Imaging was [...] be managed with medical therapy. (As per [facility] Interventional CARDS Dr. Nuha Shen). Patient subsequently underwent TTE (06/03/2024, 2:23am, [facility] CARDS [...] 6-14 large Aneurysmal 15-16 diffuse (As per [facility] CARDS fellow Dr. Sascha Silva). Patient subsequently underwent TTE (06/03/2024, 8:46am, [facility] CARDS [...] elevated left ventricular filling pressure). (As per [facility] [place]. Jonnie Jordan). Patient subsequently underwent cardiac catheterization (06/13/2024, 9:15am, [facility] Interventional [...] require modification of this regimen. (as per [facility] Interventional CARDS Dr. Nuha Shen). Patient subsequently underwent KAREN (06/14/2024, 7:20am, [facility] CARDS [...] of this mass after consultation with other litigation legal secretary experts and the decision was made by surgeon to explore the mass. 8. No significant valvular disease. Patient subsequently underwent biopsy (06/14/2024, 9:53am) of unusual fibrinous mass at the orifice of the left atrial appendage (as noted on 06/14/2024, 7:20am, [facility] [place]. Hosea Ardon): A. Soft Tissue Mass, Mediastinal Mass, Excision: - Atrophic thymic tissue B. Heart, Atrial Appendage, Left, Excision: - Mild myocyte hypertrophy (as per [facility] Pathologist Dr. Sandra Salas). As noted above, patient underwent 3v CABG, excision of mediastinal tumor, and exploration / oversewof atrial appendage (06/14/2024, 8:48am, [facility] Cardiac Surgeon Dr. Bobby Loja). Patient now reports: I was at Cardiac Rehab for the first time ever, at [facility] ([place], [place]) today, on Friday morning (08/14/2024, 10:00am) [...] me from the Cardiac Rehab Office at [facility] ([place], [place]) to the ER at [facility] ([place], [place]) to get checked out and the [...] triple bypass heart surgery at [facility] 06/14/2024, 8:48am with [facility] Cardiac Surgeon Dr. Bobby Loja, I should go to [facility] and seeDr. Loja again. I remember when I was at [facility] back in June last year (2023), and the doctors tried cardiac cath, but they couldn't do it because they said my arteries were too calcified, and that I had to get the triple bypass heart surgery instead. I feel fine now. The lightheadedness and foggy vision never came back. Patient was subsequently diagnosed with the following conditions @ [facility] ER ([place], [place]) on 08/13/2024: 1. R/O acute NSTEMI. [...] 08/14/2024, 8:43am). Patient was subsequently transferred from [facility] ER ([place], [place]) to [facility] [...] PO x 1 dose (08/14/2024, 8:30am) in [facility] ER ([place], [place]). Patient will not continue with home-scheduled [...] scale q6, for any procedure(s) recommended by [facility] Card[place] Surgeon Dr. Bobby Loja. To address #4, patient was observed in [facility] ER. On arrival to [facility] bed #373-A, I ordered iron studies (e.g., iron, TIBC, and ferritin) in this colonoscopy-naive patient. Moreover, I encouraged patient to follow up with his PCP Dr. Mauro Berumen ([place], [place]) within 5 days of hospital discharge, [...] melanoma ofleft parietal region, s/p resection (2017, [facility], [place], [place]), and who is now 69 years [...] Provider: Octaviano Quiñones MD Provider #: pager #[phone] 08/14/2024 documented in this encounter Miscellaneous Notes [...] N/A Patient is insured through: Primary Insurance: [employer] Payor: [employer] Secondary Insurance: N/A Prescription Coverage: Yes (managed medicare) This plan was formulated with input from patient and team. All are in agreement with plan. * Initial Assessments - Vargas Delong RN - 08/16/2024 1:10 PM EST Office of Care Management Initial Assessment Vargas Delong RN reviewed record and discussed patient with Care Team. Source of Information: Team, bedside nurse, medical record, and Patient CM/ROCKET ENGINE MECHANIC met with patient face to face. Introduced self/reviewed role; services accepted. Admitted From: Transfer from another hospital Location: [facility] Reason for Hospitalization: I went to cardiac rehab and my BP was crap Past medical History: No past medical history on file. Hospitalizations Within the Past 30 Days: no previous admission in last 30 days Current Decision-Making Capacity: Self If AD's have not been completed the following surrogate would be surrogate decision maker per [place] surrogate decision making law. (Only good for 180 days) Any patient receiving care in [place] must abide by [place] law. The hierarchy for surrogate decision making [...] (i) The agent with financial power of insulation machine operator or a conservator appointed in accordance with [...] In the past 12 months has the [place] [employer], [employer], or water [employer] threatened to shut off services in [...] comments) (CPAP) Home Address confirmed as: [address] [place] [facility] [address] Social & Family Supports: All names listed [...] Specific Information: N/A Health/Prescription Coverage: Primary Insurance: [employer] (sent to [employer] for scanning into pt's chart) Payor: [employer] Secondary Insurance: N/A ONLY if patient has Medicare A&B - Does this patient have secondary insurance?: (TRAFI managed medicare (sent to [employer] for scanning into chart)) ; Prescription Coverage: Yes (managed medicare) Are you financially able to cover the cost / copay of your medications?: Yes Preferred Pharmacy: [id number] - [place], [place] - [address] [facility] [address] Status: Patient is a : No Primary Care Provider confirmed: Mauro Berumen MD [phone] Patient/Caregiver Goals of Treatment: home when MR Potential Needs for Transition of Care: none Agency Referrals: pending clinical course Transportation: no concerns Transportation Anticipated: family or friend will provide Medications Anticipated: patient able to picking belt operator, family/friend will picking belt operator Concerns to be Addressed: no discharge needs [...] PM EST Office Visit Cardiology at [address] [place] [address] Moi Falcon MD [facility] [place] [address] documented as of this encounter Procedures Procedure [...] (ABNORMAL) POC, GLUCOSE (08/16/2024 12:03 PM EST) [facility] Glucometer, POC 263(H) 65 - 199 mg/dL 08/16/2024 12:03 PM EST [facility] Comment:Supplemental ranges: <140 mg/dL before meals <180 mg/dL all other times of the day. Blood CAPILLARY BLOOD / Unknown 08/16/2024 12:03 PM EST 08/16/2024 12:03 PM EST Evelyn Mckinnon MD POINT OF CARE TEST O RDERABLES Performing Organization Address [facility] de Phone Number [facility] [place] [address] * EKG 12 Lead (08/16/2024 8:44 AM EST) Ventricular rate 80 BPM MUSE SYSTEM Atrial Rate 80 BPM MUSE SYSTEM P-R Interval 180 ms MUSE SYSTEM QRS Duration 90 ms MUSE SYSTEM Q-T Interval 374 ms MUSE SYSTEM QTC Calculated (Bezet) 431 ms MUSE SYSTEM Calculated P [place] 63 degrees MUSE SYSTEM Calculated R [place] 22 degrees MUSE SYSTEM Calculated T [place] 129 degrees MUSE SYSTEM INTERPRETATION AV dual-paced rhythm Abnormal ECG When compared with ECG of 14-AUG-2024 23:57, No significant change was found Confirmed by MD JEAN, KRISS ([id number]) on 08/16/2024 9:37:14 AM MUSE SYSTEM 08/16/2024 8:44 AM EST 08/16/2024 9:37 AM EST Evelyn Mckinnon MD ECG ORDERABLES Performing Organization Address [facility] de Phone Number MUSE SYSTEM * POC, GLUCOSE (08/16/2024 8:20 AM EST) Glucometer, POC 164 65 - 199 mg/dL 08/16/2024 8:20 AM EST [facility] Comment:Supplemental ranges: <140 mg/dL before meals <180 mg/dL all other times of the day. Blood CAPILLARY BLOOD / Unknown 08/16/2024 8:20 AM EST 08/16/2024 8:20 AM EST Evelyn Mckinnon MD POINT OF CARE TEST O RDERAPIETER [facility] [place] [address] * (ABNORMAL) CBC (with Diff) (08/16/2024 12:32 AM EST) White Blood Cell 8.55 4.00 - 9.50 x10(3)/mc L 08/16/2024 12:47 AM [facility] Red Blood Cell 4.17(L) 4.58 - 5.54 x10(6)/mc L 08/16/2024 12:47 AM [facility] Hemoglobin 12.3(L) 13.7 - 16.5 g/dL 08/16/2024 12:47 AM [facility] Hematocrit 37.9(L) 40.5 - 48.5 % 08/16/2024 12:47 AM [facility] Mean Cell Volume 90.9 82.9 - 93.1 fL 08/16/2024 12:47 AM [facility] Mean Cell Hemoglobin 29.5 27.5 - 32.1 pg 08/16/2024 12:47 AM [facility] Mean Cell Hemoglobin Concentration 32.5 32.0 - 35.7 g/dL 08/16/2024 12:47 AM [facility] Platelet 192 145 - 357 x10(3)/mc L 08/16/2024 12:47 AM [facility] Mean Platelet Volume 9.5 7.6 - 12.9 fL 08/16/2024 12:47 AM [facility] RDW Standard Deviation 44.7 36.0 - 45.0 fL 08/16/2024 12:47 AM [facility] RDW coefficient of variation 13.2 11.4 - 13.8 % 08/16/2024 12:47 AM [facility] NRBC% auto 0.0 % 08/16/2024 12:47 AM [facility] NRBC Absolute <0.01 <0.01 x10(3)/mc L 08/16/2024 12:47 AM [facility] Neutrophil % 53.8 % 08/16/2024 12:47 AM [facility] Neutrophil Absolute (ANC) - Automated 4.61 1.70 - 6.10 x10(3)/mc L 08/16/2024 12:47 AM [facility] Lymph % 30.1 % 08/16/2024 12:47 AM [facility] Lymph Absolute 2.57 0.90 - 3.20 x10(3)/mc L 08/16/2024 12:47 AM [facility] Monocyte % 10.2 % 08/16/2024 12:47 AM [facility] Monocyte Absolute 0.87 0.30 - 0.90 x10(3)/mc L 08/16/2024 12:47 AM [facility] Eos % 4.8 % 08/16/2024 12:47 AM [facility] Eos Absolute 0.41(H) 0.00 - 0.40 x10(3)/mc L 08/16/2024 12:47 AM [facility] Basophil % 0.7 % 08/16/2024 12:47 AM [facility] Baso Absolute 0.06 0.00 - 0.10 x10(3)/mc L 08/16/2024 12:47 AM [facility] Immature Gran % 0.4 % 12:47 AM [facility] Immature Gran Absolute <0.04 0.00 - 0.04 x10(3)/mc L 08/16/2024 12:47 AM [facility] Blood VENOUS BLOOD SPECIMEN / Unknown Venipuncture / Unknown 08/16/2024 12:32 AM EST 08/16/2024 12:41 AM EST Octaviano Quiñones MD HEMATOLOGY ORDERABLE S [facility] [place] [address] * Heparin (unfractionated) Level (08/16/2024 12:32 AM EST) Pathologist [facility] UF Heparin 0.32 IU/mL 08/16/2024 12:55 AM EST [facility] Comment: [...] EST Octaviano Quiñones MD HEMATOLOGY ORDERABLE S [facility] [place] [address] * Magnesium (08/16/2024 12:32 AM EST) Pathologist [facility] Magnesium 0.85 0.69 - 1.07 mMol/L 08/16/2024 1:12 AM EST [facility] Blood VENOUS BLOOD SPECIMEN / Unknown Venipuncture / Unknown 08/16/2024 12:32 AM EST 08/16/2024 12:41 AM EST Evelyn Mckinnon MD CHEMISTRY ORDERABLES [facility] [place] [address] * (ABNORMAL) Basic Metabolic Panel (08/16/2024 12:32 AM [facility]) Glucose 210(H) 65 - 199 mg/dL 08/16/2024 1:12 AM [facility] Comment:Glucose Concentratio n >=200 mg/dL plus symptoms is consistent with Diabetes Mellitus. Blood Urea Nitrogen 23(H) 10 - 20 mg/dL 08/16/2024 1:12 AM [facility] Creatinine 1.02 0.80 - 1.50 mg/dL 08/16/2024 1:12 AM [facility] Sodium 136 135 - 145 mMol/L 08/16/2024 1:12 AM [facility] Potassium 4.3 3.5 - 5.0 mMol/L 08/16/2024 1:12 AM [facility] Chloride 101 98 - 107 mMol/L 08/16/2024 1:12 AM [facility] Carbon Dioxide 25 22 - 31 mMol/L 08/16/2024 1:12 AM [facility] Anion Gap 10 5 - 15 mMol/L 08/16/2024 1:12 AM [facility] Calcium 8.9 8.5 - 10.5 mg/dL 08/16/2024 1:12 AM [facility] Est Glomerular Filtration Rate - Male 81 mL/min/1. 73 m?? 08/16/2024 1:12 AM [facility] Comment: This [...] Mckinnon MD CHEMISTRY ORDERABLES Performing Organization Address [facility] Co de Phone Number [facility] [place] [address] * POC, GLUCOSE (08/15/2024 8:09 PM EST) Glucometer, POC 129 65 - 199 mg/dL 08/15/2024 8:10 PM EST [facility] Comment:Supplemental ranges: <140 mg/dL before meals <180 mg/dL all other times of the day. Blood CAPILLARY BLOOD / Unknown 08/15/2024 8:09 PM EST 08/15/2024 8:10 PM EST Evelyn Mckinnon MD POINT OF CARE TEST O RDERABLES Performing Organization Address [facility] de Phone Number [facility] [place] [address] * Heparin (unfractionated) Level (08/15/2024 7:06 PM EST) UF Heparin 0.31 IU/mL 08/15/2024 7:21 PM EST [facility] Comment: [...] ORDERABLE S Performing Organization Address [facility] Co de Phone Number [facility] [place] [address] * POC, GLUCOSE (08/15/2024 5:08 PM EST) Glucometer, POC 151 65 - 199 mg/dL 08/15/2024 5:08 PM EST [facility] Comment:Supplemental ranges: <140 mg/dL before meals <180 mg/dL all other times of the day. Blood CAPILLARY BLOOD / Unknown 08/15/2024 5:08 PM EST 08/15/2024 5:09 PM EST Evelyn Mckinnon MD POINT OF CARE TEST O NIKA Performing Organization Address [facility] Co de Phone Number [facility] [place] [address] * POC, GLUCOSE (08/15/2024 3:29 PM EST) Glucometer, POC 168 65 - 199 mg/dL 08/16/2024 7:11 AM EST [facility] Comment:Supplemental ranges: <140 mg/dL before meals <180 mg/dL all other times of the day. Blood CAPILLARY BLOOD / Unknown 08/15/2024 3:29 PM EST 08/16/2024 7:11 AM EST Evelyn Mckinnon MD POINT OF CARE TEST O NIKA Performing Organization Address [facility] Co de Phone Number [facility] [place] [address] * ECHO COMPLETE W CONTRAST (08/15/2024 12:57 PM EST) EF 31 HEARTLAB SYSTEM Anatomical Region Laterality Modality Cardiac Other 08/15/2024 12:0 0 PM EST Narrative 08/15/2024 1:42 PM EST [address] [place] [address] ? Echocardiogram Report Name: GEORGE MEHTA ?Study Date: 08/15/2024 12:00 PMBP: 118/72 mmHg : 1955 ? Height: 168 cm ? Account: [id number] Age: 69 yrs ? Weight: 93 kg Gender: Male ?BSA: 2.0 m2 Ordering Physician: OCTAVIANO QUIÑONES Referring Physician: ANA COLON Performed By: Sandra Worthy RDCS Reason For Study: Elevated troponin Exam Location: [facility]. Interpretation Summary 1. Left ventricular systolic function [...] side images at end of report). Procedure Complete-[id number]. Image enhancement Definity was used for left [...] Note Jim Benites MD - 08/15/2024 [address] [place] [address] Echocardiogram Report Name: GEORGE MEHTA Study Date: 2:00 PMBP: 118/72 mmHg : 1955 Height: 168 cm Account: [id number] Age: 69 yrs Weight: 93 kg Gender: Male BSA: 2.0 m2 Ordering Physician: OCTAVIANO QUIÑONES Referring Physician: ANA COLON Performed By: Sandra Worthy RDCS Reason For Study: Elevated troponin Exam Location: [facility]. Interpretation Summary 1. Left ventricular systolic function [...] side images at end of report). Procedure Complete-[id number]. Image enhancement Definity was used for left [...] POC, GLUCOSE (08/15/2024 12:48 PM EST) Pathologist [facility] Glucometer, POC 205(H) 65 - 199 mg/dL 08/15/2024 12:48 PM EST [facility] Comment:Supplemental ranges: <140 mg/dL before meals <180 mg/dL all other times of the day. Blood CAPILLARY BLOOD / Unknown 08/15/2024 12:48 PM EST 08/15/2024 12:48 PM EST Evelyn Mckinnon MD POINT OF CARE TEST O RDERABLES [facility] [place] [address] * Heparin (unfractionated) Level (08/15/2024 11:32 AM EST) [facility] UF Heparin 0.29 IU/mL 08/15/2024 11:48 AM EST [facility] Comment: [...] EST Octaviano Quiñones MD HEMATOLOGY ORDERABLE S [facility] [place] [address] * (ABNORMAL) POC, GLUCOSE (08/15/2024 11:15 AM EST) Glucometer, POC 253(H) 65 - 199 mg/dL 08/16/2024 7:11 AM EST [facility] Comment:Supplemental ranges: <140 mg/dL before meals <180 mg/dL all other times of the day. Blood CAPILLARY BLOOD / Unknown 08/15/2024 11:15 AM EST 08/16/2024 7:11 AM EST Evelyn Mckinnon MD POINT OF CARE TEST Abimael MAHER Performing Organization Address City/[facility]/ZIP Co de Phone Number [facility] [place] [address] * POC, GLUCOSE (08/15/2024 8:01 AM EST) Glucometer, POC 191 65 - 199 mg/dL 08/15/2024 8:01 AM EST [facility] Comment:Supplemental ranges: <140 mg/dL before meals <180 mg/dL all other times of the day. Blood CAPILLARY BLOOD / Unknown 08/15/2024 8:01 AM EST 08/15/2024 8:01 AM EST Evelyn Mckinnon MD POINT OF CARE TEST O NIKA [facility] [place] [address] * (ABNORMAL) Basic Metabolic Panel (08/15/2024 5:00 AM EST) Glucose 184 65 - 199 mg/dL 08/15/2024 7:20 AM [facility] Comment:Glucose Concentratio n >=200 mg/dL plus symptoms is consistent with Diabetes Mellitus. Blood Urea Nitrogen 23(H) 10 - 20 mg/dL 08/15/2024 7:20 AM [facility] Creatinine 1.07 0.80 - 1.50 mg/dL 08/15/2024 7:20 AM [facility] Sodium 139 135 - 145 mMol/L 08/15/2024 7:20 AM [facility] Potassium 4.1 3.5 - 5.0 mMol/L 08/15/2024 7:20 AM [facility] Chloride 102 98 - 107 mMol/L 08/15/2024 7:20 AM [facility] Carbon Dioxide 23 22 - 31 mMol/L 08/15/2024 7:20 AM [facility] Anion Gap 14 5 - 15 mMol/L 08/15/2024 7:20 AM [facility] Calcium 9.0 8.5 - 10.5 mg/dL 08/15/2024 7:20 AM [facility] Est Glomerular Filtration Rate - Male 76 mL/min/1. 73 m?? 08/15/2024 7:20 AM [facility] Comment: This [...] Ino MD CHEMISTRY ORDERABLES Performing Organization Address City/[facility]/ZIP Co de Phone Number [facility] [place] [address] * (ABNORMAL) Troponin - Single (08/15/2024 5:00 AM EST) Troponin-T, High Sensitivity 27(H) <=22 ng/L 08/15/2024 5:33 AM EST [facility] Comment: [...] in the [facility] Laboratory Test Catalog Troponin - https://[facility]-.testcatalog.org/catalogs/565/files/66026 Reference: Fourth [place] Definition of Myocardial Infarction. Journal of the [place] [employer] 2018;72:7981-7806 Blood VENOUS BLOOD SPECIMEN / Unknown Venipuncture / Unknown 08/15/2024 5:00 AM EST 08/15/2024 5:04 AM EST Octaviano Quiñones MD CHEMISTRY ORDERABLES [facility] [place] [address] * Heparin (unfractionated) Level (08/15/2024 4:59 AM EST) UF Heparin 0.29 IU/mL 08/15/2024 5:16 AM EST [facility] Comment: [...] EST Octaviano Quiñones MD HEMATOLOGY ORDERABLE S [facility] [place] [address] * Ferritin (08/15/2024 4:59 AM EST) Ferritin 70 31 - 409 ng/ml 08/15/2024 6:09 AM EST [facility] Blood VENOUS BLOOD SPECIMEN / Unknown Venipuncture / Unknown 08/15/2024 4:59 AM EST 08/15/2024 5:04 AM EST Octaviano Quiñones MD CHEMISTRY ORDERABLES [facility] [place] [address] * (ABNORMAL) CBC (with Diff) (08/15/2024 4:59 AM EST) White Blood Cell 7.12 4.00 - 9.50 x10(3)/mc L 08/15/2024 5:08 AM [facility] Red Blood Cell 4.37(L) 4.58 - 5.54 x10(6)/mc L 08/15/2024 5:08 AM [facility] Hemoglobin 12.9(L) 13.7 - 16.5 g/dL 08/15/2024 5:08 AM [facility] Hematocrit 40.2(L) 40.5 - 48.5 % 08/15/2024 5:08 AM [facility] Mean Cell Volume 92.0 82.9 - 93.1 fL 08/15/2024 5:08 AM [facility] Mean Cell Hemoglobin 29.5 27.5 - 32.1 pg 08/15/2024 5:08 AM [facility] Mean Cell Hemoglobin Concentration 32.1 32.0 - 35.7 g/dL 08/15/2024 5:08 AM [facility] Platelet 196 145 - 357 x10(3)/mc L 08/15/2024 5:08 AM [facility] Mean Platelet Volume 9.2 7.6 - 12.9 fL 08/15/2024 5:08 AM [facility] RDW Standard Deviation 45.7(H) 36.0 - 45.0 fL 08/15/2024 5:08 AM [facility] RDW coefficient of variation 13.4 11.4 - 13.8 % 08/15/2024 5:08 AM [facility] NRBC% auto 0.0 % 08/15/2024 5:08 AM [facility] NRBC Absolute <0.01 <0.01 x10(3)/mc L 08/15/2024 5:08 AM [facility] Neutrophil % 50.1 % 08/15/2024 5:08 AM [facility] Neutrophil Absolute (ANC) - Automated 3.56 1.70 - 6.10 x10(3)/mc L 08/15/2024 5:08 AM [facility] Lymph % 32.0 % 08/15/2024 5:08 AM [facility] Lymph Absolute 2.28 0.90 - 3.20 x10(3)/mc L 08/15/2024 5:08 AM [facility] Monocyte % 11.9 % 08/15/2024 5:08 AM [facility] Monocyte Absolute 0.85 0.30 - 0.90 x10(3)/mc L 08/15/2024 5:08 AM [facility] Eos % 4.6 % 08/15/2024 5:08 AM [facility] Eos Absolute 0.33 0.00 - 0.40 x10(3)/mc L 08/15/2024 5:08 AM [facility] Basophil % 1.0 % 08/15/2024 5:08 AM [facility] Baso Absolute 0.07 0.00 - 0.10 x10(3)/mc L 08/15/2024 5:08 AM [facility] Immature Gran % 0.4 % 5:08 AM [facility] Immature Gran Absolute <0.04 0.00 - 0.04 x10(3)/mc L 08/15/2024 5:08 AM [facility] Blood VENOUS BLOOD SPECIMEN / Unknown Venipuncture / Unknown 08/15/2024 4:59 AM EST 08/15/2024 5:04 AM EST Octaviano Quiñones MD HEMATOLOGY ORDERABLE S [facility] [place] [address] * EKG 12 Lead (08/14/2024 11:57 PM EST) Ventricular rate 80 BPM MUSE SYSTEM Atrial Rate 80 BPM MUSE SYSTEM P-R Interval 188 ms MUSE SYSTEM QRS Duration 98 ms MUSE SYSTEM Q-T Interval 390 ms MUSE SYSTEM QTC Calculated (Bezet) 449 ms MUSE SYSTEM Calculated P [place] 57 degrees MUSE SYSTEM Calculated R [place] 78 degrees MUSE SYSTEM Calculated T [place] -177 degrees MUSE SYSTEM INTERPRETATION AV dual-paced rhythm Abnormal ECG When compared with ECG of 14-JUN-2024 14:46, No significant change was found Confirmed by MD Nikki, Jonnie Godoy ([id number]) on 08/15/2024 12:30:01 PM MUSE SYSTEM 08/14/2024 11:5 7 PM EST 08/15/2024 12:30 PM EST Octaviano Quiñones MD ECG ORDERABLES Performing Organization Address City/[facility]/ZIP Co de Phone Number MUSE SYSTEM * (ABNORMAL) POC, GLUCOSE (08/14/2024 11:56 PM EST) Glucometer, POC 229(H) 65 - 199 mg/dL 08/14/2024 11:56 PM EST [facility] Comment:Supplemental ranges: <140 mg/dL before meals <180 mg/dL all other times of the day. Blood CAPILLARY BLOOD / Unknown 08/14/2024 11:56 PM EST 08/14/2024 11:56 PM EST Evelyn Mckinnon MD POINT OF CARE TEST O RDERABLES Performing Organization Address City/[facility]/ZIP Co de Phone Number [facility] [place] [address] * (ABNORMAL) Iron and TIBC (08/14/2024 9:40 PM EST) Iron 62 45 - 160 mcg/dL 08/15/2024 2:18 AM EST [facility] TIBC 354 250 - 450 mcg/dL 08/15/2024 2:18 AM EST [facility] Iron Saturation 18(L) 20 - 50 % 2:18 AM EST [facility] Blood VENOUS BLOOD SPECIMEN / Unknown Venipuncture / Unknown 08/14/2024 9:40 PM EST 08/14/2024 9:45 PM EST Octaviano Quiñones MD CHEMISTRY ORDERABLES Performing Organization Address [facility]/ZIP Co de Phone Number [facility] [place] [address] * (ABNORMAL) Heparin (unfractionated) Level (08/14/2024 9:40 PM EST) UF Heparin 1.03(HHH) IU/mL 08/14/2024 10:04 PM EST [facility] Comment: [...] ORDERABLE S Performing Organization Address [facility]/ZIP Co de Phone Number [facility] [place] [address] * (ABNORMAL) Hemoglobin A1c (08/14/2024 9:40 PM EST) Hemoglobin A1c 6.9(H) 4.3 - 5.6 % 08/14/2024 10:06 PM EST [facility] Comment: [...] blood cell turnover may not be outside sales representative of glycemic control. Reference Interval: 4.3 - 5.6% 5.7 - 6.4%: Consistent with prediabetes >=6.5%: Consistent with diagnosis of diabetes mellitus Estimated Average Glucose 151 mg/dL 08/14/2024 10:06 PM [facility] Blood VENOUS BLOOD SPECIMEN / Unknown Venipuncture / Unknown 08/14/2024 9:40 PM EST 08/14/2024 9:46 PM EST Octaviano Quiñones MD CHEMISTRY ORDERABLES Performing Organization Address City/State/[facility] Co de Phone Number [facility] [place] [address] * (ABNORMAL) CBC (with Diff) (08/14/2024 9:40 PM EST) White Blood Cell 9.52(H) 4.00 - 9.50 x10(3)/mc L 08/14/2024 9:51 PM [facility] Red Blood Cell 4.74 4.58 - 5.54 x10(6)/mc L 08/14/2024 9:51 PM [facility] Hemoglobin 13.7 13.7 - 16.5 g/dL 08/14/2024 9:51 PM [facility] Hematocrit 44.0 40.5 - 48.5 % 08/14/2024 9:51 PM [facility] Mean Cell Volume 92.8 82.9 - 93.1 fL 08/14/2024 9:51 PM [facility] Mean Cell Hemoglobin 28.9 27.5 - 32.1 pg 08/14/2024 9:51 PM [facility] Mean Cell Hemoglobin Concentration 31.1(L) 32.0 - 35.7 g/dL 08/14/2024 9:51 PM [facility] Platelet 235 145 - 357 x10(3)/mc L 08/14/2024 9:51 PM [facility] Mean Platelet Volume 9.3 7.6 - 12.9 fL 08/14/2024 9:51 PM [facility] RDW Standard Deviation 45.2(H) 36.0 - 45.0 fL 08/14/2024 9:51 PM [facility] RDW coefficient of variation 13.3 11.4 - 13.8 % 08/14/2024 9:51 PM [facility] NRBC% auto 0.0 % 08/14/2024 9:51 PM [facility] NRBC Absolute <0.01 <0.01 x10(3)/mc L 08/14/2024 9:51 PM [facility] Neutrophil % 57.7 % 08/14/2024 9:51 PM [facility] Neutrophil Absolute (ANC) - Automated 5.50 1.70 - 6.10 x10(3)/mc L 08/14/2024 9:51 PM [facility] Lymph % 28.7 % 08/14/2024 9:51 PM [facility] Lymph Absolute 2.73 0.90 - 3.20 x10(3)/mc L 08/14/2024 9:51 PM [facility] Monocyte % 8.5 % 08/14/2024 9:51 PM [facility] Monocyte Absolute 0.81 0.30 - 0.90 x10(3)/mc L 08/14/2024 9:51 PM [facility] Eos % 3.4 % 08/14/2024 9:51 PM [facility] Eos Absolute 0.32 0.00 - 0.40 x10(3)/mc L 08/14/2024 9:51 PM [facility] Basophil % 1.2 % 08/14/2024 9:51 PM [facility] Baso Absolute 0.11(H) 0.00 - 0.10 x10(3)/mc L 08/14/2024 9:51 PM EST [facility] Immature Gran % 0.5 % 9:51 PM EST [facility] Immature Gran Absolute 0.05(H) 0.00 - 0.04 x10(3)/mc L 08/14/2024 9:51 PM EST [facility] Blood VENOUS BLOOD SPECIMEN / Unknown Venipuncture / Unknown 08/14/2024 9:40 PM EST 08/14/2024 9:45 PM EST Octaviano Quiñones MD HEMATOLOGY ORDERABLE S [facility] [place] [address] * (ABNORMAL) Troponin - Single (08/14/2024 9:40 PM EST) Troponin-T, High Sensitivity 28(H) <=22 ng/L 08/14/2024 10:14 PM EST [facility] Comment: This [...] in the [facility] Laboratory Test Catalog Troponin - https://one-.testcatalog.org/catalogs/565/files/95859 Reference: Fourth [place] Definition of Myocardial Infarction. Journal of the [place] [employer] 2018;72:3808-3135 Blood VENOUS BLOOD SPECIMEN / Unknown Venipuncture / Unknown 08/14/2024 9:40 PM EST 08/14/2024 9:45 PM EST Octaviano Quiñones MD CHEMI[place] [address] documented in this encounter Visit Diagnoses Diagnosis [...] Routine documented in this encounter Care Teams Admissions Nurse Relationship Specialty Start Date End Date Mauro Berumen MD [address] [place] [address] PCP - General Family Medicine 06/02/24 documented as of this encounter
--- OUTSIDE RECORDS SUMMARY | 2024-09-15 10:39 | XMS_ITS | Encounter Summary ---
Author Organization [facility] Address [facility] [place] [address] Care Team Providers Care Swinging Cut Off Saw Operator Name Role Phone Mauro Berumen MD Primary Care Provider [phone] Encounter Details Date Type Department Care Team (Latest Contact Info) Description 07/20/2024 Travel Social History Tobacco Use Types Packs/Day Years Used Date Smoking Tobacco: Every Day Cigarettes Smokeless Tobacco: Never [facility] Utilities Answer Date Recorded In [...] time in the past 12 m [facility], were you homeless or [...] 2:00 PM EST Office Visit Cardiology at [address] [id number] Moi Falcon MD [facility] [place] [address] documented as of this encounter Visit Diagnoses Not on filedocumented in this encounter Care Teams Swinging Cut Off Saw Operator Relationship Specialty Start Date End Date Mauro Berumen MD [address] [place] [id number] PCP - General Family Medicine 06/02/24 documented as of this encounter
--- OUTSIDE RECORDS SUMMARY | 2024-09-15 10:39 | XMS_ITS | Encounter Summary ---
Author Organization [facility] Address [facility] [place] [address] Care Team Providers Care Vehicle Insurance Agent Name Role Phone Mauro Berumen MD Primary Care Provider [phone] Encounter Details Date Type Department Care Team (Late st Contact Info) Description 08/13/2024 Telephone Cardiology at [address] [place] [phone] Katy Maurer APRN [facility] [place] [address] Social History Tobacco Use Types Packs/Day Years [...] any time in the past 12 m [facility], were you homeless or living in [...] Notes * Telephone Encounter - Katy Maurer, FOOD PRODUCTION SUPERVISOR - 08/13/2024 2:52 PM EST Images from the original note were not included. 08/13/2024 Arturo Mehta Initial Contact Date: 08/13/2024 Initial contact time: 2:52 PM Referring Provider: Dr. 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 Imaging was [...] 3.5 guiding catheter and a 3.5 Fr [facility] [place] 20 Mhz using Manual pullback. Imaging was [...] 80 mg Plavix Plan: Patient presented to [facility] ED from cardiac rehabilitation with pre-syncopal [...] thrombosis cannot be excluded.Additionally, he has known ACID MAKER/ICD. It is unclear if arrhythmia is culprit for pre-syncopal episode. [facility] will attempt to obtain TTE to evaluate EF and new WMAs if TTE available. I have advised for gentle IV NSS bolus with 250mL fluid in the setting of hypotension and creatinine 1.5 with pre-syncopal symptoms. I have encouraged to hold 20 mg daily Lasix as there is no evidence of fluid overload onexamination. Plan for transfer to [facility] cardiology med/surg level of care accepting for [...] 2:00 PM EST Office Visit Cardiology at [address] [phone] Moi Falcon MD [facility] [place] [address] documented as of this encounter Visit Diagnoses Not on filedocumented in this encounter Care Teams Vehicle Insurance Agent Relationship Specialty Start Date End Date Mauro Berumen MD [address] [place] [address] PCP - General Family Medicine 06/02/24 documented as of this encounter
--- OUTSIDE RECORDS SUMMARY | 2024-09-15 10:39 | XMS_ITS | Encounter Summary ---
Author Organization Counts Include [facility] Address [facility] [place] [address] Care Team Providers Care Decator Operator Name Role Phone Mauro Berumen MD Primary Care Provider [phone] Encounter Details Date Type Department Care Team (Late st Contact Info) Description 07/20/2024 3:20 PM EST Office Visit Cardiac Surgery at [facility] [place] [address] Bobby Loja MD [facility] [place] [address] Post-operative state Social History Tobacco Use Types Packs/Day Years Used Date Smoking Tobacco: Every Day Cigarettes Smokeless Tobacco: Never [facility] Utilities Answer Date Recorded In [...] any time in the past 12 m [facility], were you homeless or living in [...] has not yet seen his PCP or granite block paver since surgery. His appetite has been normal [...] cardiac surgery perspective - Follow up with Tablet Making Machine Operator (Kristen Cardenas) and PCP (Mauro Berumen) [...] PM EST Office Visit Cardiology at [address] [phone] Moi Falcon MD [facility] [place] [address] documented as of this encounter Procedures Procedure Name Priority Date/Time Associated Diagnosis Comments POC, GLUCOSE Routine 07/20/2024 4:31 PM EST documented in this encounter Results * POC, GLUCOSE (07/20/2024 4:31 PM EST) [facility] Signature Glucometer, POC 125 65 - 199 mg/dL 07/20/2024 4:31 PM EST [facility] Comment:Supplemental ranges: <140 mg/dL before meals <180 mg/dL all other times of the day. Blood CAPILLARY BLOOD / Unknown 07/20/2024 4:31 PM EST 07/20/2024 4:31 PM EST Bobby Loja MD POINT OF CARE TEST O RDERAPIETER Performing Organization Address City/State/[facility] Co de Phone Number [facility] [place] [address] documented in this encounter Visit Diagnoses Diagnosis Post-operative state Other postprocedural status documented in this encounter Care Teams Decator Operator Relationship Specialty Start Date End Date Mauro Berumen MD [address] [place] [address] PCP - General Family Medicine 06/02/24 documented as of this encounter
--- OUTSIDE RECORDS SUMMARY | 2024-09-15 10:39 | XMS_ITS | Encounter Summary ---
Author Organization [facility] Address [facility] [place] [address] Care Team Providers Care Day Haul Youth Supervisor Name Role Phone Mauro Berumen MD Primary Care Provider [phone] Encounter Details Date Type Department Care Team (Late st Contact Info) Description 08/13/2024 External Results Transfer Center [facility] [place] [phone] Social History Tobacco Use Types Packs/Day Years Used Date Smoking Tobacco: Every Day Cigarettes Smokeless Tobacco: Never [facility] Utilities Answer Date Recorded In the past 12 months has th e electric, gas, oil, or water [employer] threatened to shut off services in your [...] time in the past 12 m [facility], were you homeless or living in a fci (including now)? No 08/16/2024 IPV Inpatient Questions [...] 2:00 PM EST Office Visit Cardiology at [address] [phone] Moi Falcon MD [facility] [place] [address] documented as of this encounter Procedures Procedure Name Priority Date/Time Associated Diagnosis Comments MISC EXTERNAL CARDIOLOGY RESULT Routine 08/13/2024 1:38 PM EST documented in this encounter Results * External Cardiology Result (08/13/2024 1:38 PM EST) Anatomical Region Laterality Modality Other Historical Provider EXTERNAL CARDIOLO GY RESULT documented in this encounter Visit Diagnoses Not on filedocumented in this encounter Care Teams Day Haul Youth Supervisor Relationship Specialty Start Date End Date Mauro Berumen MD [address] [place] [address] PCP - General Family Medicine 06/02/24 documented as of this encounter
--- OUTSIDE RECORDS SUMMARY | 2024-09-15 10:39 | XMS_ITS | Encounter Summary ---
Author Organization [facility] Address [facility] [place] [address] Care Team Providers Care Event Mgr Name Role Phone Mauro Berumen MD Primary Care Provider [phone] Encounter Details Date Type Department Care Team (Late st Contact Info) Description 07/20/2024 Notes Only Cardiology at [address] [place] [address] Esha Jones RN Social History Tobacco Use [...] BGL was measured to be 40. Nurse Energy Project Engineer Chelsi administered chewable glucose tablets while this [...] PM EST Office Visit Cardiology at [address] [phone] Moi Falcon MD [facility] [place] [address] documented as of this encounter Visit Diagnoses Not on filedocumented in this encounter Care Teams Event Mgr Relationship Specialty Start Date End Date Mauro Berumen MD [address] [place] [address] PCP - General Family Medicine 06/02/24 documented as of this encounter
--- OUTSIDE RECORDS SUMMARY | 2024-09-15 10:41 | XMS_ITS | Encounter Summary ---
Author Organization [facility] Address [facility] [place] [address] Care Team Providers Care Military Technician Name Role Phone Mauro Beruemn MD Primary Care Provider [phone] Encounter Details Date Type Department Care Team (Latest Contact Info) Description 06/15/2024 Unscheduled Encounter Cardiology at [address] [place] [phone] Ross Corbin PA [facility] [place] [address] Cardiac resynchronization therapy defibrillator (BARREL LATHE OPERATOR OUTSIDE-D) in place [Z95.810] Social History Tobacco Use [...] PM EST Cardiac Device Interrogation Arturo Mehta [id number] 06/15/2024 History: Arturo Mehta is a 69 year old male with a PMH significant for HTN, HLD, DM2, current TUD (abstinent since admission), ASCVD with multiple prior SD and PCIs, 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 Today, EP was asked to reprogram his BARREL LATHE OPERATOR OUTSIDE-D device for the procedure. Vitals: Last Set of Vitals and range of vitals over past 24 hours: Range last 24 hrs Temperature Temp: [34.9 ??C (94.8 ??F)-37.6 ??C (99.7 ??F)] Heart Rate Heart Rate: [80-107] Blood Pressure BP: (115)/(65) Respiratory Rate Resp: [11-24] SpO2 SpO2: [92 %-100 %] Device Interrogation: Data Generator: Medtronic Amplia MRI Quad BARREL LATHE OPERATOR OUTSIDE-D [id number] / [id number] - Left-sided implant; 06/16/19 RA Lead: Medtronic [id number] CapSureFix Novus [id number]; 06/16/19 RV Lead: Medtronic [id number] / [id number]; 06/16/19 LV Lead: Medtronic 4298 Attain Performa MRI / [id number]; 06/16/19 Alerts VF Detection OFF, 3+ VF or 3+ FVT Rx Off. Diagnostics Pacing Mode: DDD @ 80/130 bpm Presenting EGMs: BV Underlying Rhythm: Sinus tachycardia ~100 bpm Atrial Pacin.7% Ventricular Pacin.6% BARREL LATHE OPERATOR OUTSIDE Pacin% Battery and Leads Voltage: 2.93 V [...] - Contact the device clinic at pager [phone] for any further programming adjustments. Ross Corbin PA-C, PhD 06/15/2024 Pager: [phone] documented in this encounter Plan of Treatment Upcoming Encounters Date Type Department Care Team (Late st Contact Info) Description 09/29/2024 2:00 PM EST Office Visit Cardiology at [address] [phone] Moi Falcon MD [facility] [place] [address] documented as of this encounter Visit Diagnoses Diagnosis Cardiac resynchronization therapy defibrillator (BARREL LATHE OPERATOR OUTSIDE-D) in place [Z95.810] documented in this encounter Care Teams Military Technician Relationship Specialty Start Date End Date Mauro Berumen MD [address] [place] [address] PCP - General Family Medicine 06/02/24 documented as of this encounter
--- OUTSIDE RECORDS SUMMARY | 2024-09-15 10:41 | XMS_ITS | Encounter Summary ---
Author Organization [facility] Address [facility] [place] [address] Care Team Providers Care Senior Behavioral Scientist Name Role Phone Mauro Berumen MD Primary Care Provider Encounter Details Date Type Department Care Team (Latest Contact Info) Description 06/14/2024 Unscheduled Encounter Cardiology at [address] [place] [phone] Ross Corbin PA [facility] [place] [address] Cardiac resynchronization therapy defibrillator (TARGET SETTER-D) in place [Z95.810] Social History Tobacco Use [...] AM EST Cardiac Device Interrogation Arturo Mehta [id number] 06/14/2024 History: Arturo Mehta is a 69 year old male with a PMH significant for HTN, HLD, DM2, current TUD (abstinent since admission), ASCVD with multiple prior [place] and PCIs, ICM/HFrEF LVEF 30% (all territories viable on cMRI) who is undergoing a CABG procedure and EP was asked to reprogram his TARGET SETTER-D device for the procedure. Vitals: Last Set of Vitals and range of vitals over past 24 hours: Range last 24 hrs Temperature Temp: [36 ??C (96.8 ??F)-37 ??C (98.6 ??F)] Heart Rate Heart Rate: [57-72] Blood Pressure BP: (99-138)/(66-86) Respiratory Rate Resp: [13-24] SpO2 SpO2: [90 %-98 %] Device Interrogation: Data Generator: MedThe Fan Machine Amplia MRI Quad TARGET SETTER-D [id number] / [id number] - Left-sided implant; 06/16/19 RA Lead: Medtronic 4076 CapSureFix Novus [id number]; 06/16/19 RV Lead: Medtronic 6935M / [id number]; 06/16/19 LV Lead: Medtronic 4298 Attain Performa MRI / [id number]; 06/16/19 Diagnostics Pacing Mode: DDD @ 50/130 [...] scheduled. Ross Corbin PA-C, PhD 06/14/2024 Pager: [phone] documented in this encounter Plan of Treatment Upcoming Encounters Date Type Department Care Team (Late st Contact Info) Description 09/29/2024 2:00 PM EST Office Visit Cardiology at [address] [address] Moi Falcon MD [facility] [place] [address] documented as of this encounter Visit Diagnoses Diagnosis Cardiac resynchronization therapy defibrillator (TARGET SETTER-D) in place [Z95.810] documented in this encounter Care Teams Senior Behavioral Scientist Relationship Specialty Start Date End Date Mauro Berumen MD [address] [place] [address] PCP - General Family Medicine 06/02/24 documented as of this encounter
--- OUTSIDE RECORDS SUMMARY | 2024-09-15 10:41 | XMS_ITS | Encounter Summary ---
Author Organization [facility] Address [facility] [place] [address] Care Team Providers Care Netbackup Engineer Name Role Phone Mauro Berumen MD Primary Care Provider [phone] Reason for Referral * Consultation (Routine) - Authorized Specialty Diagnoses / Procedures Referred By Contac t Referred To Contact Cardiology Diagnoses S/P CABG x 3 Bobby Loja MD [facility] [place] [address] Cardiac Rehab, [address] [place] [address] Referral ID Status Reason Start Date Expiration Date Visits Requested Visits Authorized [id number] Authorized Consult, Test & Treat 06/21/2024 12/18/2024 36 36 * Home Health Care (Routine) - Authorized Specialty Diagnoses / Procedures Referred By Contac t Referred To Contact Diagnoses S/P CABG x 3 Bobby Loja MD [facility] [place] [address] Referral ID Status Reason Start Date Expiration Date Visits Requested Visits Authorized [id number] Authorized Consult, Test & Treat 06/21/2024 12/18/2024 999 999 Reason for Visit * Auth/Cert Specialty Diagnoses / Procedures Referred By Contac t Referred To Contact Diagnoses STEMI (ST elevation myocardial infarction) STEMI Procedures CARDIAC CATHETERIZATION EMERGENCY Delroy Monterroso MD [facility] [place] [address] [facility] Referral ID Status Reason Start Date Expiration Date Visits Re quested Visits Authorized [id number] 1 1 Encounter Details Date Type Department Care Team (Late st Contact Info) Description 06/02/2024 11:09 PM EDT - 06/21/2024 1:07 PM EST Hospital Encounter Heart and Vascular Unit Level 4 [place] [address] Nuha Shen MD [facility] [place] [address] Delroy Fofana MD [facility] [place] [address] Melida Valdes MD [facility] [place] [address] Ethel Carrillo MD [facility] [place] [address] Haja Byrnes MD [facility] [place] [address] Bobby Loja MD [facility] [place] [address] ST elevation myocardial infarction (STEMI), unspecified artery; Coronary artery disease involving kenaitze coronary artery of kenaitze heart without angina pectoris; S/P CABG x 3 Discharge Disposition: Home with VNA Social History Tobacco Use Types Packs/Day Years Used Date Smoking Tobacco: Every Day Cigarettes Smokeless Tobacco: Never Tobacco Cessation:Ready to Q uit: No; Counseling Given: Yes C Utilities Answer Date Recorded In the past 12 months has [employer], [employer], oil, or water [employer] threatened to shut off services in [...] this encounter Discharge Summaries * Keila Hanley, TRAIN STARTER - 06/21/2024 8:31 AM EST Inpatient - Discharge Summary Patient Name: George Mehta Patient Age: 69 y.o. Birthdate: 1955 Language: [place] Islander Race: Choose not to Disclose Ethnicity: Not nor Admit Date: 06/02/2024 Discharge Date: 06/21/2024 Attending Physician: Bobby Loja MD Follow-up Recommendations for Providers: Please continue routine management of cardiovascular risk factors including blood pressure, lipids,glucose, etc. Please note any changes to medications. Patient to follow up with PCP, Mauro Berumen MD, in 1-2 weeks. Patient to follow up with Sheet Metal Pattern Cutter, Kristen Cardenas in 2-3 weeks. Patient to follow up with Cardiac Surgeon, Dr. Bobby Loja, in 4 wks. Inpatient Provider Contact Information: [facility] Section of Cardiac Surgery [facility] [address] FAX [phone] Discharge Diagnoses (Hospital Problems) Primary Diagnoses: STEMI [...] (WRVU 33.75) performed by Bobby Loja MD [facility] OR PRO CABG, ARTERY-VEIN, TWO N/A 06/14/2024 @CABG, TWO VENOUS GRAFTS & ARTERIAL GRAFT (WRVU 7.93) performed by Bobby Loja MD at [facility] OR PRO ENDOSCOPY W/VIDEO-ASST VEIN HARVEST, CABG N/A 06/14/2024 ENDOSCOPIC HARVEST VEIN(S) FOR CABG (WRVU 0.31) performed by Bobby Loja MD at [facility] MAIN OR PRO EXC MEDIASTINAL TUMOR N/A 06/14/2024 @EXCISION OF MEDIASTINAL TUMOR (WRVU 19.55) performed by Bobby Loja MD at [facility] MA[facility] OR PRO INSERT INTRA-AORTIC BALLOON ASST DEVICE PERCUTANEOUS N/A 06/13/2024 @INSERTION OF IABP,PERCUTANEOUS (WRVU 4.84) performed by Nuha Shen MD at [facility] CATH LABS PRO UNLISTED CARDIAC SURG PROCEDURE N/A 06/14/2024 EXPLORATION AND OVERSEW ATRIAL APPENDAGE (WRVU 5.94) performed by Bobby Loja MD at [facility] [place] Prior To Admission Medications Medications [...] y.o. male with a PMHx of previous DC s/p PCI x3, ICM/HFrEF (LVEF 30%) s/p ICD, DMII, HTN, HLD, remote melanoma, and smoker who presented to [facility] last night via EMS after developing acute, severe chest pain while watching TV. Patient was ruled in for STEMI, given TNK, ASA, plavix, heparin gtt, and sent to [facility] for coronary angiography. LHC demonstrated severely calcified left coronary system with notable LCx 75/80% lesions and ADOPTION SERVICES MANAGER OM1 with ISR with collateral retrograde filling, [...] Hospital Course: George Mehta was admitted to [facility] on 06/02/2024 via the CardiologyService with an anterior STEMI after receiving lytics at OSH. He was brought to the starch factory laborer which showed severely calcified left coronary system with notable LCx 75/80% lesions and ADOPTION SERVICES MANAGER OM1 with ISR with collateral retrograde filling, [...] 2 tablespoons of dried fruit. Milk and ov-wkapa-sazre yogurt have 15 grams of carbs in a serving. A serving is 1 cup of milk or 3/4 cup (6 oz) of bi-hctsx-mbunu yogurt. Starchy vegetables have 15 grams of carbs in a serving. A serving is ?? cup of mashed potatoes or sweet potato; 1 cup winter squash; ?? of a small baked potato; ?? cup of cooked beans; or ?? cup cooked corn or green peas. Learn how much carbs to eat each day and at each meal. A dietitian or certified welding inspector can teach you how to keep track [...] Bobby Loja and/or the Cardiac Surgery Physician Train Starter Team may be reached at . Weight: [...] Dr. Bobby Loja. You may use a [place] Track or treadmill but avoid any pulling [...] friends, go to a movie, go to restorationism, etc. Heavy activities: No hunting, skiing, jogging, [...] should resume a low fat, low cholesterol, Citizen Of [place] Heart Association Diet/Diabetic diet. Driving: No driving [...] while being managed by your PCP and/or Sheet Metal Pattern Cutter. For future medication refills, please refer to your PCP and/or Sheet Metal Pattern Cutter after your discharge from our service. Thank you REMOVE CHEST TUBE SUTURES ON OR AFTER 06/24/2024 Home oxygen therapy: N/A Follow up appointments: You should follow up with your PCP, Mauro Berumen MD, in 1-2 weeks. You should follow up with your Sheet Metal Pattern Cutter, Dr CARDENAS. You have an appointment with your Cardiac Surgeon, Dr. Bobby Loja, in 4 wks. Cardiac Rehabilitation: George Mehta was seen today regarding participation in the outpatient Phase 2 Cardiac Rehabilitation at [facility]. The patient agrees to a referral to this program. The referral will be sent at discharge and the patient should be contacted by the program within 1-2 weeks from discharge. Future Appointments and Orders Future Orders Complete By Expires Referral to Cardiac Rehab [AJC317 Custom] As directed Process Instructions: If no progress note charted, please enter Clinical details in comments. Scheduling Instructions: Questions: My question or request is: s/p CABG- cardiac rehab at [facility] Referral to Home Health [REF34 Custom] As directed Process Instructions: If no progress note charted, please enter Clinical details in comments. Scheduling Instructions: Comments: Please evaluate George Mehta for admission to Home Health. [address] [facility] [address] (home) Date of : 1955 Inpatient DOCUMENTATION FOR VNA SERVICES (INCLUDING THOSE PATIENTS WITH MEDICARE COVERAGE REQUIRINGHOME VNA SERVICES AND/OR HOSPICE SERVICES) PATIENT'S LOCATION: George Mehta [address] [facility] [address] (home) Telephone Information: Lead Dental Assistant's Name: self In discussion with the attending physician, it is certified that this patient is under their care and that they, or a Nurse Practitioner, or Physician Train Starter who is working directly with them, hada [...] AGENCY: [facility] [address] [address] RN orders: Cardiopulmonary assessment, incisional assessment, assess [...] issues please call the Cardiology Office at [phone] FOR MEDICARE ONLY: (please delete this section [...] care: As above. Signed: KEILA HANLEY APRN [facility] Section of Cardiac Surgery [facility] [address] FAX [phone] Date: 06/21/2024 CC: MD Antonino Tinajero Joshua R, PA [address] [place] [address] [place] [address] documented in this encounter Discharge Instructions * [...] 2 tablespoons of dried fruit. Milk and pg-ctqlb-xwhdj yogurt have 15 grams of carbs in a serving. A serving is 1 cup of milk or 3/4 cup (6 oz) of yf-awttc-cuvwk yogurt. Starchy vegetables have 15 grams of carbs in a serving. A serving is ?? cup of mashed potatoes or sweet potato; 1 cup winter squash; ?? of a small baked potato; ?? cup of cooked beans; or ?? cup cooked corn or green peas. Learn how much carbs to eat each day and at each meal. A dietitian or certified welding inspector can teach you how to keep track [...] Bobby Loja and/or the Cardiac Surgery Physician Train Starter Team may be reached at . Weight: [...] Dr. Bobby Loja. You may use a [place] Track or treadmill but avoid any pulling [...] friends, go to a movie, go to restorationism, etc. Heavy activities: No hunting, skiing, jogging, [...] should resume a low fat, low cholesterol, Citizen [place] Heart Association Diet/Diabetic diet. Driving: No driving [...] while being managed by your PCP and/or Sheet Metal Pattern Cutter. For future medication refills, please refer to your PCP and/or Sheet Metal Pattern Cutter after your discharge from our service. Thank you REMOVE CHEST TUBE SUTURES ON OR AFTER 06/24/2024 Home oxygen therapy: N/A Follow up appointments: You should follow up with your PCP, Mauro Berumen MD, in 1-2 weeks. You should follow up with your Sheet Metal Pattern Cutter, Dr CARDENAS. You have an appointment with your Cardiac Surgeon, Dr. Bobby Loja, in 4 wks. Cardiac Rehabilitation: George Mehta was seen today regarding participation in the outpatient Phase 2 Cardiac Rehabilitation at [facility]. The patient agrees to a [...] tablet Take 25 mg by mouth daily. acetaminophen (Tylenol) 325 mg tablet Take 3 tablets by mouth every 6 hours as needed for Pain. 06/21/2024 guaiFENesin ER (Mucinex) 600 mg ER 12 hr tablet Take 1 tablet by mouth every 12 hours. 10 tablet 06/21/2024 carvediloL (Coreg) 12.5 mg tablet Take 12.5 mg by mouth 2 times daily. 08/16/2024 insulin aspart U-100 (NovoLOG Flexpen U-100 Insulin) 100 unit/mL (3 mL) Insulin Pen Inject 20 Units subcutaneously 3 times daily (with meals). 08/16/2024 furosemide (Lasix) 20 mg tablet Take 1 tablet by mouth daily. 30 tablet 3 06/21/2024 08/16/2024 Insulin Tresiba FlexTouch U-100 100 unit/mL (3 mL) Insulin PenIndications:type 2 diabetes mellitus Inject 30 Units subcutaneously daily. Indications: type 2 diabetes mellitus 06/21/2024 08/16/2024 documented as of this encounter Progress [...] MARIALUISA clipping. PMH of chronic HFrEF s/p CREDIT CHARGE AUTHORIZER/ICD, IDDM2, HTN, HLD, remote melanoma, active smoker. [...] 2 tablespoons of dried fruit. Milk and sd-fbqwf-dadqn yogurt have 15 grams of carbs in a serving. A serving is 1 cup of milk or 3/4 cup (6 oz) of zn-fdyld-ynzwr yogurt. Starchy vegetables have 15 grams of carbs in a serving. A serving is ?? cup of mashed potatoes or sweet potato; 1 cup winter squash; ?? of a small baked potato; ?? cup of cooked beans; or ?? cup cooked corn or green peas. Learn how much carbs to eat each day and at each meal. A dietitian or certified welding inspector can teach you how to keep track [...] cheese, and peanut butter. Alejandra Baumann APRN [facility] Endocrinology Diabetes Management Pager [phone] Weekends please page [phone] * Eric Packer PA - 06/20/2024 7:44 AM EST Cardiac Surgery Progress Note George Mehta is a 69 y.o. male with a history of CAD s/p multiple PCI who presented with an anterior STEMI and was given lytics. Cath showed MV CAD without culprit vessel. He is now 6 Days Post-OpCABGx3 and MARIALUISA clipping. PMH of chronic HFrEF s/p CREDIT CHARGE AUTHORIZER/ICD, IDDM2, HTN, HLD, remote melanoma, active smoker. 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 06/20/2024 Between the hours of 1800 - 0600 and on the weekends please page [phone]. * Alejandra Baumann, TRAIN STARTER - 06/20/2024 7:21 AM EST Follow Up Diabetes Consult Patient Interview Blood glucose values and insulin use reviewed. 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 PMH of chronic HFrEF s/p CREDIT CHARGE AUTHORIZER/ICD, IDDM2, HTN, HLD, remote melanoma, active smoker. 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 Milk and bz-twipz-cfvql yogurt have 15 grams of carbs in a serving. A serving is 1 cup of milk or 3/4 cup (6 oz) of ps-giuxo-qkzkr yogurt. Starchy vegetables have 15 grams of carbs in a serving. A serving is ?? cup of mashed potatoes or sweet potato; 1 cup winter squash; ?? of a small baked potato; ?? cup of cooked beans; or ?? cup cooked corn or green peas. Learn how much carbs to eat each day and at each meal. A dietitian or certified welding inspector can teach you how to keep track [...] MARIALUISA clipping. PMH of chronic HFrEF s/p CREDIT CHARGE AUTHORIZER/ICD, IDDM2, HTN, HLD, remote melanoma, active smoker. 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 Jeffy Hood MD 06/19/2024 Between the hours of 1800 - 0600 and on the weekends please page [phone]. * Alejandra Baumann, JOSÉ ANTONIO - 06/19/2024 7:09 AM EST Follow Up Diabetes Consult Patient Interview Blood glucose values and insulin use reviewed. 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 Glargine reduced to [...] MARIALUISA clipping. PMH of chronic HFrEF s/p CREDIT CHARGE AUTHORIZER/ICD, IDDM2, HTN, HLD, remote melanoma, active smoker. Jardiance added back yesterday. 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 Glargine reduced to [...] 2 tablespoons of dried fruit. Milk and hn-gnhax-lncxw yogurt have 15 grams of carbs in a serving. A serving is 1 cup of milk or 3/4 cup (6 oz) of xb-afijr-ktmci yogurt. Starchy vegetables have 15 grams of carbs in a serving. A serving is ?? cup of mashed potatoes or sweet potato; 1 cup winter squash; ?? of a small baked potato; ?? cup of cooked beans; or ?? cup cooked corn or green peas. Learn how much carbs to eat each day and at each meal. A dietitian or certified welding inspector can teach you how to keep track [...] cheese, and peanut butter. Alejandra Baumann APRN [facility] Endocrinology Diabetes Management Pager [phone] Weekends please page [phone] Hilda Almazan PTA - 06/18/2024 9:19 AM EST Physical Therapy Note 2 Patient profile: George Mehta is a 69 y.o. male with a history of CAD s/p multiple PCI who presented with an anterior STEMI and was given lytics. Cath showed MV CAD without culprit vessel. He is now 1 Day Post-Op CABGx3 and MARIALUISA clipping. PMH of chronic HFrEF s/p CREDIT CHARGE AUTHORIZER/ICD, IDDM2, HTN, HLD, remote melanoma, active smoker. Interval History: Per last cardiac surgery note on 06/18/2024 Cr improved 1.4 on lasix 40 iv bid -1.5L, made 2.5L urine Coreg, entresto restarted Floor status Social History: Pt lives with his in a 1 level apartment with no steps to enter. 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 He drives. He sleeps [...] least restrictive device Time IN / OUT: 2434-7380 Total Time: 11 minutes; TEF 1 Hilda Resendez PTA Pager: [phone] Physical Therapy Inpatient Rehabilitation Department * Keila [...] MARIALUISA clipping. PMH of chronic HFrEF s/p CREDIT CHARGE AUTHORIZER/ICD, IDDM2, HTN, HLD, remote melanoma, active smoker. 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 Restarting jardiance #Active smoker Duoneb prn Dispo: CVCC, Full code, tx to floor Discussed with attending surgeon on rounds this morning. KEILA HANLEY APRN 06/18/2024 Between the hours of 1800 - 0600 and on the weekends please page [phone]. * Alejandra Baumann APRN - 06/17/2024 3:29 [...] MARIALUISA clipping. PMH of chronic HFrEF s/p CREDIT CHARGE AUTHORIZER/ICD, IDDM2, HTN, HLD, remote melanoma, active smoker. [...] based on ISF 20 Alejandra Baumann APRN [facility] Endocrinology Diabetes Management Pager [phone] Weekends please page [phone] 35 minutes were spent over the course [...] MARIALUISA clipping. PMH of chronic HFrEF s/p CREDIT CHARGE AUTHORIZER/ICD, IDDM2, HTN, HLD, remote melanoma, active smoker. [...] 0600 and on the weekends please page [phone]. * Raymond Carlton MD - 06/16/2024 1:11 PM EST CARDIAC CRITICAL CARE ATTENDING STAFF PROGRESS NOTE Patient seen and examined. George Mehta is a 69 y.o. male with: Active Hospital Problems Diagnosis STEMI (ST elevation myocardial infarction) Cardiac resynchronization therapy defibrillator (CREDIT CHARGE AUTHORIZER-D) - Medtronic Amplia Cardiomyopathy, ischemic Acute on chronic heart failure with reduced ejection fraction (HFrEF, <= 40%) Coronary artery disease involving kenaitze coronary artery of kenaitze heart without angina pectoris Type 2 diabetes [...] unless consulted in the interim. RICHA Simmons Shop Mechanic Helper * Octaviano Horvath PA - 06/16/2024 8:07 AM EST Cardiac Surgery Progress Note George Mehta is a 69 y.o. male with a history of CAD s/p multiple PCI who presented with an anterior STEMI and was given lytics. Cath showed MV CAD without culprit vessel. He is now 2 Days Post-OpCABGx3 and MARIALUISA clipping. PMH of chronic HFrEF s/p CREDIT CHARGE AUTHORIZER/ICD, IDDM2, HTN, HLD, remote melanoma, active smoker. [...] 0600 and on the weekends please page [phone]. * Jono Fernandez, PT - 06/15/2024 4:09 PM EST Physical Therapy Evaluation Patient profile: George Mehta is a 69 y.o. male with a history of CAD s/p multiple PCI who presented with an anterior STEMI and was given lytics. Cath showed MV CAD without culprit vessel. He is now 1 Day Post-Op CABGx3 and MARIALUISA clipping. PMH of chronic HFrEF s/p CREDIT CHARGE AUTHORIZER/ICD, IDDM2, HTN, HLD, remote melanoma, active smoker. 24h Events: From OR on Dobutamine IABP removed Bedrest ended ~2100, sedation weaned Extubated ~0200 Dobutamine weaned to 1 this morning, CI 2.6, shut off and repeat CI 2.4 Social History: Pt lives with his in a 1 level apartment with no steps to enter. 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 He drives. He sleeps [...] outlined inthis evaluation. JONO FERNANDEZ, PT Pager: [phone] Physical Therapy Inpatient Rehabilitation Department Time IN / OUT: 0437-2495 Total Time: 33 (eval) minutes * Alejandra Baumann APRN - 06/15/2024 11:39 AM EST Follow Up Diabetes Consult Patient Interview Blood glucose values and insulin use reviewed. Pt remains on an insulin drip today following ILIHa1sme MARIALUISA clipping. George continues to complain of [...] MARIALUISA clipping. PMH of chronic HFrEF s/p CREDIT CHARGE AUTHORIZER/ICD, IDDM2, HTN, HLD, remote melanoma, active smoker. [...] based on ISF 20 Alejandra Baumann APRN [facility] Endocrinology Diabetes Management Pager [phone] Weekends please page [phone] 50 minutes were spent over the course [...] elevation myocardial infarction) Cardiac resynchronization therapy defibrillator (CREDIT CHARGE AUTHORIZER-D) - Medtronic Amplia Cardiomyopathy, ischemic Acute on chronic heart failure with reduced ejection fraction (HFrEF, <= 40%) Coronary artery disease involving kenaitze coronary artery of kenaitze heart without angina pectoris Type 2 diabetes [...] with h/o DM, CAD with prior PCI, CREDIT CHARGE AUTHORIZER-D who presented with crushing chest pain, found [...] MARIALUISA clipping. PMH of chronic HFrEF s/p CREDIT CHARGE AUTHORIZER/ICD, IDDM2, HTN, HLD, remote melanoma, active smoker. [...] sternotomy dressing CDI, saphenectomy dressing CDi Tubes/Lines/Drains: [place], RIJ, A-line, Mediastinal marcos and bilateral pleural [...] 0600 and on the weekends please page [phone]. * Yoli Donaldson, GUARD MUSEUM - 06/15/2024 5:35 AM EST AMV Protocol: [...] with h/o DM, CAD with prior PCI, CREDIT CHARGE AUTHORIZER-D who presented with crushing chest pain, found [...] with h/o DM, CAD with prior PCI, CREDIT CHARGE AUTHORIZER-D who presented with crushing chest pain, found [...] 0600 and on the weekends please page [phone]. * Clhoé Cortez - 06/14/2024 9:36 AM EST Nutrition [...] unless consulted in the interim. Chloé Cortez Delivery Person * Jim Benites MD - 06/13/2024 1:15 [...] - Mildly dilated left ventricle size with kjtbdgdt-po-demwpgsb decreased LV systolic function. LV ejection fraction [...] (abstinent since admission), ASCVD with multiple prior DC and PCIs, ICM/HFrEF LVEF 30% (all territories [...] elevation myocardial infarction) Cardiac resynchronization therapy defibrillator (CREDIT CHARGE AUTHORIZER-D) - Medtronic Amplia Cardiomyopathy, ischemic Acute on chronic heart failure with reduced ejection fraction (HFrEF, <= 40%) Coronary artery disease involving kenaitze coronary artery of kenaitze heart without angina pectoris Type 2 diabetes [...] PCP: Mauro Berumen MD PCP phone number: [phone] Date of Admission: 06/02/2024 ( Hospital Day 10 days ) Attending:Ethel Carrillo MD ID: 69 y.o. male with a h/o DM type 2, HTN, HLD, current smoker (2-3 cigarettes/day), HFrEF with anICD for low EF (~30%), and CAD with prior DC x3 with J[facility]NA placed in [facility], presented to [facility] with 1 hour of retrosternal CP (05/13) while watching TV, found to have STEMI. Active Problems: Active Hospital Problems Diagnosis STEMI (ST elevation myocardial infarction) Cardiac resynchronization therapy defibrillator (CREDIT CHARGE AUTHORIZER-D) - Medtronic Amplia Cardiomyopathy, ischemic Acute on chronic heart failure with reduced ejection fraction (HFrEF, <= 40%) Coronary artery disease involving kenaitze coronary artery of kenaitze heart without angina pectoris Type 2 diabetes [...] in the last 7068 hours. Invalid input(s): [id number] Recent Labs 06/12/24 0425 06/11/24 2356 06/11/24 2025 06/11/24 1624 06/11/24 1108 06/11/24 0748 06/11/24 0357 06/11/24 0050 06/10/24 1922 06/10/24 1735 06/10/24 1125 06/10/24 0746 POCGLU 132 135 210* 81 233* 184 132 144 236* 123 216* 206* Heme No results for input(s): LDH, HAPTOGLOBIN, URICACID in the last 168 hours. ABG (Arterial Blood Gas) No results found for: PHART, PO2ART, DGP6XCS, [id number] Microbiology: Microbiology Results (Last 30 days) No results found for the last 720 hours. Imaging: Results for orders placed or performed during the hospital encounter of 06/02/24 XR Chest One View (Exam End: 06/03/2024 2:41 AM) Result Value WORKSTATION ID [id number] Impression No radiographically evident acute cardiopulmonary process. Thank you for letting us participate in the care of this patient. If you are a health care provider and have any questions regarding this report, please contact the number below. For patients who have questions please contact the health home care provider that requested your imaging first. Cardiac Morphology Function wwo Contrast (Exam End: 06/07/2024 1:10 PM) Result Value WORKSTATION ID [id number] Impression - Findings consistent with an ischemic [...] - Mildly dilated left ventricle size with njljksvk-kn-whleanpj decreased LV systolic function. LV ejection fraction [...] who have questions please contact the health home care provider that requested your imaging first. Chest wo Contrast (Generic) (Exam End: 06/03/2024 4:33 PM) Result Value WORKSTATION ID [id number] Impression Cardiomegaly. Biventricular ICD leads in place. Thank you for letting us participate in the care of this patient. If you are a health care provider and have any questions regarding this report, please contact the number below. For patients who have questions please contact the health home care provider that requested your imaging first. Chest PA & Lateral (Generic) (Exam End: 06/07/2024 7:03 AM) Result Value WORKSTATION ID [id number] Impression Biventricular ICD leads intact and in [...] who have questions please contact the health home care provider that requested your imaging first. : Limited echo performed by fellow document control coordinator to assess LV function. Left ventricle is [...] ischemic cardiomyopathy with HFrEF (~30% EF), prior DC with stents, DM type 2, HTN, HLD, active smoker, presented with anterior STEMI. Angiography revealed severe multivessel CAD with extensive calcification and YUE 3 flow in all vessels, without a clear culprit lesion. Currently pain-free after TNK, Plavix, ASA, and heparin, with mildly elevated LVEDP at 40 mmHg and mild volume overload. 06/12/24: Patient stable, asymptomatic. Plan to go to starch factory laborer for balloon pump tomorrow, then willgo [...] CODE Dain Colón MD Cardiology, M1-S2, Pager #[phone] 06/12/24 Associated attestation - Ethel Carrillo MD [...] (abstinent since admission), ASCVD with multiple prior DC and PCIs, ICM/HFrEF LVEF 30% (all territories [...] two midnights or is on the [facility] inpatient only procedure list (status C) due to: acute myocardial infarction requiring titration of IV medication and fluid monitoring and decompensated congestive heart failure requiring IV medication and fluid monitoring Ethel Carrillo MD Cardiovascular Medicine Personal Pager [phone] 06/12/2024 9:12 PM * Alejandra Baumann, TRAIN STARTER - 06/11/2024 4:21 PM EST Images from [...] too aggressive, suggest ICR 1:6 (rule of [id number]/81 = 6.25). George is up and walking [...] ischemic cardiomyopathy with HFrEF (~30% EF), prior DC with stents, DM type 2, HTN, HLD, [...] ac, metformin 1000mg BID Alejandra Baumann APRN [facility] Endocrinology Diabetes Management Pager [phone] Weekends please page [phone] 35 minutes were spent over the course [...] PCP: Mauro Berumen MD PCP phone number: [phone] Date of Admission: 06/02/2024 ( Hospital Day 9 days ) Attending:Melida Valdes MD ID: 69 y.o. male with a h/o DM type 2, HTN, HLD, current smoker (2-3 cigarettes/day), HFrEF with anICD for low EF (~30%), and CAD with prior DC x3 with JENNA placed in [place], Melanoma, PAD, presented to [facility] with 1 hour of retrosternal CP (05/13) while watching TV, found to have STEMI. Active Problems: Active Hospital Problems Diagnosis STEMI (ST elevation myocardial infarction) Cardiac resynchronization therapy defibrillator (CREDIT CHARGE AUTHORIZER-D) - Medtronic Amplia Cardiomyopathy, ischemic Acute on chronic heart failure with reduced ejection fraction (HFrEF, <= 40%) Coronary artery disease involving kenaitze coronary artery of kenaitze heart without angina pectoris Type 2 diabetes [...] in the last 7068 hours. Invalid input(s): [id number] Recent Labs 06/11/24 0357 06/11/24 0050 06/10/24 1922 06/10/24 1735 06/10/24 1125 06/10/24 0746 06/10/24 0423 06/10/24 0005 06/09/24 2036 06/09/24 1727 06/09/24 1152 06/09/24 0810 POCGLU 132 144 236* 123 216* 206* 154 125 197 174 211* 209* Heme No results for input(s): LDH, HAPTOGLOBIN, URICACID in the last 168 hours. ABG (Arterial Blood Gas) No results found for: PHART, PO2ART, HGU1BUE, NGL5AEG Microbiology: Microbiology Results (Last 30 days) No results found for the last 720 hours. Imaging: Results for orders placed or performed during the hospital encounter of 06/02/24 XR Chest One View (Exam End: 06/03/2024 2:41 AM) Result Value WORKSTATION ID [id number] Impression No radiographically evident acute cardiopulmonary process. Thank you for letting us participate in the care of this patient. If you are a health care provider and have any questions regarding this report, please contact the number below. For patients who have questions please contact the health home care provider that requested your imaging first. Cardiac Morphology Function wwo Contrast (Exam End: 06/07/2024 1:10 PM) Result Value WORKSTATION ID [id number] Impression - Findings consistent with an ischemic [...] - Mildly dilated left ventricle size with vaoscepo-ex-igwyysxd decreased LV systolic function. LV ejection fraction [...] who have questions please contact the health home care provider that requested your imaging first. Chest wo Contrast (Generic) (Exam End: 06/03/2024 4:33 PM) Result Value WORKSTATION ID [id number] Impression Cardiomegaly. Biventricular ICD leads in place. Thank you for letting us participate in the care of this patient. If you are a health care provider and have any questions regarding this report, please contact the number below. For patients who have questions please contact the health home care provider that requested your imaging first. Chest PA & Lateral (Generic) (Exam End: 06/07/2024 7:03 AM) Result Value WORKSTATION ID [id number] Impression Biventricular ICD leads intact and in [...] who have questions please contact the health home care provider that requested your imaging first. : Limited echo performed by fellow document control coordinator to assess LV function. Left ventricle is [...] Infusions: heparin (porcine) infusion 1,400 Units/hr (06/10/24 3639) PRN Meds:.insulin lispro, glucose 40% oral geL [...] ischemic cardiomyopathy with HFrEF (~30% EF), prior DC with stents, DM type 2, HTN, HLD, [...] CODE Dain Colón MD Cardiology, M1-S2, Pager #[phone] 06/11/24 Associated attestation - Ethel Carrillo MD [...] (abstinent since admission), ASCVD with multiple prior DC and PCIs, ICM/HFrEF LVEF 30% (all territories [...] Ethel Carrillo MD Cardiovascular Medicine Personal Pager [phone] 06/11/2024 9:35 PM * Hilary Belle - 06/10/2024 12:39 PM EST Nutrition Services Note George Mehta is a 69 y.o. male Reason for intervention: hospital day 9 Nutrition Plan: Continue diet order: 60/60/75 CHO Level 2 Encourage good PO Lasix and Insulin noted Monitor weight Patient scheduled for a hospital day 9 nutrition evaluation. Scientific Aide attempted to meet with pt at bedside [...] unless consulted in the interim. Hilary Belle Shop Mechanic Helper * Mariia Montero RN - 06/10/2024 12:23 PM EST I have met with the patient to: discuss discharge planning needs. provide the [facility], Office of Care Management letter from the Blast Furnace Helper pertaining to rehab referrals. provide a letter describing our affiliations within the [facility] and educate about their right to choose where referrals are sent. provide a list of Home Health Agencies / Durable Medical Equipment vendors which serve their preferred geographic area. provided patient with CMS Star Quality Rating handout. They have requested referrals to: [facility] [address] [place] [id number] RN / PT Anticipated d/c date: 06/20/24 Note routed to a Green Building Design Specialist who will communicate referrals to facilities and provide any required information. * Dain Colón MD - 06/10/2024 7:17 AM EST Images from the original note were not included. . Cardiology Progress Note Patient info: Name: George Mehta : 1955 PCP: Mauro Berumen MD PCP phone number: [phone] Date of Admission: 06/02/2024 ( Hospital Day 8 days ) Attending:Melida Valdes MD ID: 69 y.o. male with a h/o DM type 2, HTN, HLD, current smoker (2-3 cigarettes/day), HFrEF with anICD for low EF (~30%), and CAD with prior DC x3 with JENNA placed in [place], [facility], PAD, presented to [facility] with 1 hour of retrosternal CP (05/13) while watching TV, found to have STEMI. Active Problems: Active Hospital Problems Diagnosis STEMI (ST elevation myocardial infarction) Cardiac resynchronization therapy defibrillator (CREDIT CHARGE AUTHORIZER-D) - Medtronic Amplia Cardiomyopathy, ischemic Acute on chronic heart failure with reduced ejection fraction (HFrEF, <= 40%) Coronary artery disease involving kenaitze coronary artery of kenaitze heart without angina pectoris Type 2 diabetes [...] in the last 7068 hours. Invalid input(s): [id number] Recent Labs 06/10/24 0423 06/10/24 0005 06/09/24 2036 06/09/24 1727 06/09/24 1152 06/09/24 0810 06/09/24 0440 06/09/24 0034 06/08/24 2027 06/08/24 1616 06/08/24 1235 06/08/24 0810 POCGLU 154 125 197 174 211* 209* 131 186 176 159 226* 190 Heme No results for input(s): LDH, HAPTOGLOBIN, URICACID in the last 168 hours. ABG (Arterial Blood Gas) No results found for: PHART, PO2ART, EWB7TFL, WAF0UWP Microbiology: Microbiology Results (Last 30 days) No results found for the last 720 hours. Imaging: Results for orders placed or performed during the hospital encounter of 06/02/24 XR Chest One View (Exam End: 06/03/2024 2:41 AM) Result Value WORKSTATION ID [id number] Impression No radiographically evident acute cardiopulmonary process. Thank you for letting us participate in the care of this patient. If you are a health care provider and have any questions regarding this report, please contact the number below. For patients who have questions please contact the health home care provider that requested your imaging first. Cardiac Morphology Function wwo Contrast (Exam End: 06/07/2024 1:10 PM) Result Value WORKSTATION ID [id number] Impression - Findings consistent with an ischemic [...] - Mildly dilated left ventricle size with sitbglmf-tx-pvwllhgm decreased LV systolic function. LV ejection fraction [...] who have questions please contact the health home care provider that requested your imaging first. Chest wo Contrast (Generic) (Exam End: 06/03/2024 4:33 PM) Result Value WORKSTATION ID [id number] Impression Cardiomegaly. Biventricular ICD leads in place. Thank you for letting us participate in the care of this patient. If you are a health care provider and have any questions regarding this report, please contact the number below. For patients who have questions please contact the health home care provider that requested your imaging first. Chest PA & Lateral (Generic) (Exam End: 06/07/2024 7:03 AM) Result Value WORKSTATION ID [id number] Impression Biventricular ICD leads intact and in [...] who have questions please contact the health home care provider that requested your imaging first. : Limited echo performed by fellow document control coordinator to assess LV function. Left ventricle is [...] ischemic cardiomyopathy with HFrEF (~30% EF), prior DC with stents, DM type 2, HTN, HLD, [...] CODE Dain Colón MD Cardiology, M1-S2, Pager #[phone] 06/10/24 Associated attestation - Melida Valdes MD - 06/10/2024 4:15 PM EST Cardiology Attending Attestation/Addendum: Please see Dian Colón MD's note for details of the [...] a lytic and brought directly to the Precision Crop Manager. Cardiac catheterization demonstrated multivessel disease with [...] who is agreeable Melida Valdes MD Staff Sheet Metal Pattern Cutter * Cherelle Fregoso APRN - 06/09/2024 8:59 [...] ischemic cardiomyopathy with HFrEF (~30% EF), prior DC with stents, DM type 2, HTN, HLD, [...] PCP: Mauro Berumen MD PCP phone number: [phone] Date of Admission: 06/02/2024 ( Hospital Day 7 days ) Attending:Melida Valdes MD ID: 69 y.o. male with a h/o DM type 2, HTN, HLD, current smoker (2-3 cigarettes/day), HFrEF with anICD for low EF (~30%), and CAD with prior DC x3 with JENNA placed in [place], Melanoma, PAD, presented to [facility] with 1 hour of retrosternal CP (05/13) while watching TV, found to have STEMI. Active Problems: Active Hospital Problems Diagnosis STEMI (ST elevation myocardial infarction) Acute on chronic heart failure with reduced ejection fraction (HFrEF, <= 40%) Coronary artery disease involving kenaitze coronary artery of kenaitze heart without angina pectoris Type 2 diabetes [...] in the last 7068 hours. Invalid input(s): [id number] Recent Labs 06/09/24 0440 06/09/24 0034 06/08/24 2027 06/08/24 1616 06/08/24 1235 06/08/24 0810 06/08/24 0409 06/07/24 2357 06/07/24 2005 06/07/24 1631 06/07/24 1105 06/07/24 1103 POCGLU 131 186 176 159 226* 190 151 188 118 174 221* 250* Heme No results for input(s): LDH, HAPTOGLOBIN, URICACID in the last 168 hours. ABG (Arterial Blood Gas) No results found for: PHART, PO2ART, NWV6CZU, NYN8XOM Microbiology: Microbiology Results (Last 30 days) No results found for the last 720 hours. Imaging: Results for orders placed or performed during the hospital encounter of 06/02/24 XR Chest One View (Exam End: 06/03/2024 2:41 AM) Result Value WORKSTATION ID [id number] Impression No radiographically evident acute cardiopulmonary process. Thank you for letting us participate in the care of this patient. If you are a health care provider and have any questions regarding this report, please contact the number below. For patients who have questions please contact the health home care provider that requested your imaging first. Cardiac Morphology Function wwo Contrast (Exam End: 06/07/2024 1:10 PM) Result Value WORKSTATION ID [id number] Impression - Findings consistent with an ischemic [...] - Mildly dilated left ventricle size with uovywsvx-be-sxtjjkjf decreased LV systolic function. LV ejection fraction [...] who have questions please contact the health home care provider that requested your imaging first. Chest wo Contrast (Generic) (Exam End: 06/03/2024 4:33 PM) Result Value WORKSTATION ID [id number] Impression Cardiomegaly. Biventricular ICD leads in place. Thank you for letting us participate in the care of this patient. If you are a health care provider and have any questions regarding this report, please contact the number below. For patients who have questions please contact the health home care provider that requested your imaging first. Chest PA & Lateral (Generic) (Exam End: 06/07/2024 7:03 AM) Result Value WORKSTATION ID [id number] Impression Biventricular ICD leads intact and in [...] who have questions please contact the health home care provider that requested your imaging first. : Limited echo performed by fellow document control coordinator to assess LV function. Left ventricle is [...] Infusions: heparin (porcine) infusion 1,400 Units/hr (06/08/24 3728) PRN Meds:.glucose 40% oral geL OR dextrose [...] ischemic cardiomyopathy with HFrEF (~30% EF), prior DC with stents, DM type 2, HTN, HLD, [...] CODE Dain Colón MD Cardiology, M1-S2, Pager #[phone] 06/09/24 Associated attestation - Melida Valdes MD [...] a lytic and brought directly to the Precision Crop Manager. Cardiac catheterization demonstrated multivessel disease with [...] insertion low EF. Melida Valdes MD Staff Sheet Metal Pattern Cutter * Alejandra Baumann, JOSÉ ANTONIO - 06/08/2024 [...] ischemic cardiomyopathy with HFrEF (~30% EF), prior DC with stents, DM type 2, HTN, HLD, [...] to optimize glucose control Alejandra Baumann APRN [facility] Endocrinology Diabetes Management Pager [phone] Weekends please page [phone] 35 minutes were spent over the course [...] PCP: Mauro Berumen MD PCP phone number: [phone] Date of Admission: 06/02/2024 ( Hospital Day 6 days ) Attending:Melida Valdes MD ID: 69 y.o. male with a h/o DM type 2, HTN, HLD, current smoker (2-3 cigarettes/day), HFrEF with anICD for low EF (~30%), and CAD with prior DC x3 with JENNA placed in [place], Melanoma, PAD, presented to [facility] with 1 hour of retrosternal CP (05/13) while watching TV, found to have STEMI. Active Problems: Active Hospital Problems Diagnosis STEMI (ST elevation myocardial infarction) Acute on chronic heart failure with reduced ejection fraction (HFrEF, <= 40%) Coronary artery disease involving kenaitze coronary artery of kenaitze heart without angina pectoris Type 2 diabetes [...] in the last 7068 hours. Invalid input(s): [id number] Recent Labs 06/08/24 0409 06/07/24 2357 06/07/24200406/07/24 1631 06/07/24 1105 06/07/24 1103 06/07/24 0745 06/07/24 0425 06/07/24 0008 06/06/24201706/06/24 1539 06/06/24 1339 POCGLU 151 188 118 174 221* 250* 175 127 182 143 147 317* Heme No results for input(s): LDH, HAPTOGLOBIN, URICACID in the last 168 hours. ABG (Arterial Blood Gas) No results found for: PHART, PO2ART, WKN8JPQ, MGT5QDC Microbiology: Microbiology Results (Last 30 days) No results found for the last 720 hours. Imaging: Results for orders placed or performed during the hospital encounter of 06/02/24 XR Chest One View (Exam End: 06/03/2024 2:41 AM) Result Value WORKSTATION ID [id number] Impression No radiographically evident acute cardiopulmonary process. Thank you for letting us participate in the care of this patient. If you are a health care provider and have any questions regarding this report, please contact the number below. For patients who have questions please contact the health home care provider that requested your imaging first. Cardiac Morphology Function wwo Contrast (Exam End: 06/07/2024 1:10 PM) Result Value WORKSTATION ID [id number] Impression - Findings consistent with an ischemic [...] - Mildly dilated left ventricle size with xyqspnak-br-zfgwzcfe decreased LV systolic function. LV ejection fraction [...] who have questions please contact the health home care provider that requested your imaging first. Chest wo Contrast (Generic) (Exam End: 06/03/2024 4:33 PM) Result Value WORKSTATION ID [id number] Impression Cardiomegaly. Biventricular ICD leads in place. Thank you for letting us participate in the care of this patient. If you are a health care provider and have any questions regarding this report, please contact the number below. For patients who have questions please contact the health home care provider that requested your imaging first. Chest PA & Lateral (Generic) (Exam End: 06/07/2024 7:03 AM) Result Value WORKSTATION ID [id number] Impression Biventricular ICD leads intact and in [...] who have questions please contact the health home care provider that requested your imaging first. : Limited echo performed by fellow document control coordinator to assess LV function. Left ventricle is [...] ischemic cardiomyopathy with HFrEF (~30% EF), prior DC with stents, DM type 2, HTN, HLD, [...] CODE Dain Colón MD Cardiology, M1-S2, Pager #[phone] 06/08/24 Associated attestation - Melida Valdes MD [...] a lytic and brought directly to the Precision Crop Manager. Cardiac catheterization demonstrated multivessel disease with [...] Otherwise clinically stable Melida Valdes MD Staff Sheet Metal Pattern Cutter * Ross Manuel PA - 06/07/2024 12:00 PM EST Cardiac Electrophysiology CIED Interrogation/Programming Note Asked by MRI staff to evaluate and program Medtronic CREDIT CHARGE AUTHORIZER-D to allow for MR imaging. Patient Active Problem List Diagnosis ','STEMI (ST elevation myocardial infarction) Acute on chronic heart failure with reduced ejection fraction (HFrEF, <= 40%) Coronary artery disease involving kenaitze coronary artery of kenaitze heart without angina pectoris Type 2 diabetes mellitus Device Data: Medtronic Amplia MRI Quad CREDIT CHARGE AUTHORIZER-D HJUR1WL #[id number] 06/16/2019 RA Medtronic 4076 CapSureFix Novus [id number] 06/16/2019 RV Medtronic [id number] [id number] 06/16/2019 LV Medtronic 4298 Attain Performa MRI [id number] 06/16/2019 DDD @ 50/130/130 Adaptive Bi-V and LV VF >188bpm ATP, 35j x6 FVT >188-222bpm burst 2, 35jx5 VT Battery longevity: 2.5yrs; charge time 4s P wave: 2.3mV R wave: >20.0mV Atrial impedance: 458 ohms RV impedance: 646 ohms LV impedance: 722 ohms Atrial threshold: 0.5V @ 0.4ms RV threshold: LV threshold: 1.75V @ 0.4ms AP 0.2% MOTTLE LAY UP OPERATOR 97.7% AT/AF 0% Impression and Plan: 1. Interrogated device to determine suitability for MRI 2. Programmed to MRI safe mode - VOO @ 70 3. Scan performed 4. Programming restored to baseline settings 5. Reinterrogated to verify appropriate function and settings 6. Device follow up as previously scheduled Provider: HENOK Meyer EP Consult attending physician: Libby Barton MD EP Consult positional pager #[phone](EPMD) EP Device interrogation positional pager # [phone] * Dain Colón MD - 06/07/2024 7:09 AM EST Images from the original note were not included. . Cardiology Progress Note Patient info: Name: George Mehta : 1955 PCP: Mauro Berumen MD PCP phone number: [phone] Date of Admission: 06/02/2024 ( Hospital Day 5 days ) Attending:Melida Valdes MD ID: 69 y.o. male with a h/o DM type 2, HTN, HLD, current smoker (2-3 cigarettes/day), HFrEF with anICD for low EF (~30%), and CAD with prior DC x3 with JENNA placed in [place], Melanoma, PAD, presented to [facility] with 1 hour of retrosternal CP (05/13) while watching TV, found to have STEMI. Active Problems: Active Hospital Problems Diagnosis STEMI (ST elevation myocardial infarction) Acute on chronic heart failure with reduced ejection fraction (HFrEF, <= 40%) Coronary artery disease involving kenaitze coronary artery of kenaitze heart without angina pectoris Type 2 diabetes [...] in the last 7068 hours. Invalid input(s): [id number] Recent Labs 06/07/24 0425 06/07/24 0008 06/06/24 2018 06/06/24 1539 06/06/24 1339 06/06/24 1134 06/06/24 0757 06/06/24 0653 06/05/24 2231 06/05/24 1622 06/05/24 1134 06/05/24 0727 POCGLU 127 182 143 147 317* 264* 195 187 238* 205* 211* 166 Heme No results for input(s): LDH, HAPTOGLOBIN, URICACID in the last 168 hours. ABG (Arterial Blood Gas) No results found for: PHART, PO2ART, UOJ2ESP, WCW3BTW Microbiology: Microbiology Results (Last 30 days) No results found for the last 720 hours. Imaging: Results for orders placed or performed during the hospital encounter of 06/02/24 XR Chest One View (Exam End: 06/03/2024 2:41 AM) Result Value WORKSTATION ID [id number] Impression No radiographically evident acute cardiopulmonary process. Thank you for letting us participate in the care of this patient. If you are a health care provider and have any questions regarding this report, please contact the number below. For patients who have questions please contact the health home care provider that requested your imaging first. Chest wo Contrast (Generic) (Exam End: 06/03/2024 4:33 PM) Result Value WORKSTATION ID [id number] Impression Cardiomegaly. Biventricular ICD leads in place. Thank you for letting us participate in the care of this patient. If you are a health care provider and have any questions regarding this report, please contact the number below. For patients who have questions please contact the health home care provider that requested your imaging first. : Limited echo performed by fellow document control coordinator to assess LV function. Left ventricle is [...] Infusions: heparin (porcine) infusion 1,400 Units/hr (06/06/24 3570) PRN Meds:.insulin lispro, potassium chloride ER OR [...] ischemic cardiomyopathy with HFrEF (~30% EF), prior DC with stents, DM type 2, HTN, HLD, [...] Dain Colón MD (PGY-1) Cardiology, M1-S2, Pager #[phone] 06/07/24 Associated attestation - Melida Valdes MD [...] a lytic and brought directly to the Precision Crop Manager. Cardiac catheterization demonstrated multivessel disease with [...] Will reengage CT surgery for further guidance. Mleida Valdes MD Staff Sheet Metal Pattern Cutter * Dain Colón MD - 06/06/2024 7:17 AM EST Images from the original note were not included. . Cardiology Progress Note Patient info: Name: George Mehta : 1955 PCP: Mauro Berumen MD PCP phone number: [phone] Date of Admission: 06/02/2024 ( Hospital Day 4 days ) Attending:Melida Valdes MD ID: 69 y.o. male with a h/o DM type 2, HTN, HLD, current smoker (2-3 cigarettes/day), HFrEF with anICD for low EF (~30%), and CAD with prior DC x3 with JENNA placed in [place], Melanoma, PAD, presented to [facility] with 1 hour of retrosternal CP (05/13) while watching TV, found to have STEMI. Active Problems: Active Hospital Problems Diagnosis STEMI (ST elevation myocardial infarction) Acute on chronic heart failure with reduced ejection fraction (HFrEF, <= 40%) Coronary artery disease involving kenaitze coronary artery of kenaitze heart without angina pectoris Type 2 diabetes [...] in the last 7068 hours. Invalid input(s): [id number] Recent Labs 06/06/24 0653 06/05/24 2231 06/05/24 1622 06/05/24 1134 06/05/24 0727 06/04/24 1943 06/04/24 1526 06/04/24 1109 06/04/24 0711 06/03/24 2005 06/03/24 1748 06/03/24 1114 POCGLU 187 238* 205* 211* 166 175 154 188 182 136 191 166 Heme No results for input(s): LDH, HAPTOGLOBIN, URICACID in the last 168 hours. ABG (Arterial Blood Gas) No results found for: PHART, PO2ART, TDP2FPD, FMZ2FFP Microbiology: Microbiology Results (Last 30 days) No results found for the last 720 hours. Imaging: Results for orders placed or performed during the hospital encounter of 06/02/24 XR Chest One View (Exam End: 06/03/2024 2:41 AM) Result Value WORKSTATION ID [id number] Impression No radiographically evident acute cardiopulmonary process. Thank you for letting us participate in the care of this patient. If you are a health care provider and have any questions regarding this report, please contact the number below. For patients who have questions please contact the health home care provider that requested your imaging first. Chest wo Contrast (Generic) (Exam End: 06/03/2024 4:33 PM) Result Value WORKSTATION ID [id number] Impression Cardiomegaly. Biventricular ICD leads in place. Thank you for letting us participate in the care of this patient. If you are a health care provider and have any questions regarding this report, please contact the number below. For patients who have questions please contact the health home care provider that requested your imaging first. : Limited echo performed by fellow document control coordinator to assess LV function. Left ventricle is [...] ischemic cardiomyopathy with HFrEF (~30% EF), prior DC with stents, DM type 2, HTN, HLD, [...] Dain Colón MD (PGY-1) Cardiology, M1-S2, Pager #[phone] 06/06/24 Associated attestation - Melida Valdes MD [...] a lytic and brought directly to the Precision Crop Manager. Cardiac catheterization demonstrated multivessel disease with [...] management. Help appreciated Melida Valdes MD Staff Sheet Metal Pattern Cutter * Frederick Dunn MD - 06/05/2024 8:13 AM EDT Images from the original note were not included. . Cardiology Progress Note Patient info: Name: George Mehta : 1955 PCP: Mauro Berumen MD PCP phone number: [phone] Date of Admission: 06/02/2024 ( Hospital Day 3 days ) Attending:Melida Valdes MD ID: 69 y.o. male with a h/o DM type 2, HTN, HLD, current smoker (2-3 cigarettes/day), HFrEF with anICD for low EF (~30%), and CAD with prior DC x3 with JENNA placed in [place], Melanoma, PAD, presented to [facility] with 1 hour of retrosternal [...] in the last 7068 hours. Invalid input(s): [id number] Recent Labs 06/05/24 1134 06/05/24 0727 06/04/24 1943 06/04/24 1526 06/04/24 1109 06/04/24 0711 06/03/24 2005 06/03/24 1748 06/03/24 1114 06/03/24 0754 06/02/24 2331 POCGLU 211* 166 175 154 188 182 136 191 166 195 156 Heme No results for input(s): LDH, HAPTOGLOBIN, URICACID in the last 168 hours. ABG (Arterial Blood Gas) No results found for: PHART, PO2ART, ZRK1EMZ, FRZ3BKO Microbiology: Microbiology Results (Last 30 days) No results found for the last 720 hours. Imaging: Results for orders placed or performed during the hospital encounter of 06/02/24 XR Chest One View (Exam End: 06/03/2024 2:41 AM) Result Value WORKSTATION ID [id number] Impression No radiographically evident acute cardiopulmonary process. Thank you for letting us participate in the care of this patient. If you are a health care provider and have any questions regarding this report, please contact the number below. For patients who have questions please contact the health home care provider that requested your imaging first. Chest wo Contrast (Generic) (Exam End: 06/03/2024 4:33 PM) Result Value WORKSTATION ID [id number] Impression Cardiomegaly. Biventricular ICD leads in place. Thank you for letting us participate in the care of this patient. If you are a health care provider and have any questions regarding this report, please contact the number below. For patients who have questions please contact the health home care provider that requested your imaging first. : Limited echo performed by fellow document control coordinator to assess LV function. Left ventricle is [...] ischemic cardiomyopathy with HFrEF (~30% EF), prior DC with stents, DM type 2, HTN, HLD, [...] all the information they need regarding the CREDIT CHARGE AUTHORIZER-D.Plan for MRI tomorrow. Starting 40 mg IV [...] a lytic and brought directly to the Precision Crop Manager. Cardiac catheterization demonstrated multivessel disease with [...] maintenance of 40. Melida Valdes MD Staff Sheet Metal Pattern Cutter * Migel Javier RN - 06/05/2024 6:21 AM EDT Implanted device record scanned into: Chart Review-->Media-->External Cardiology-->03/25/2024. Medtronic SETiTia MRI Quad CRTD [id number] Serial #: [id number] DDD mode A + Bi/V Rates 50-130 Migel Javier RN * Dain Colón MD - 06/04/2024 11:16 AM EDT Implant Records Requested Type: CREDIT CHARGE AUTHORIZER-D Glass Sagger: Medtronic Product: [id number] Amplia MRI MRI compatibility: Compatible for 1.5-3 T Model #: [id number] Placed at: [place], [place] Records requested for MRI: 1. Operative report 2. Implant log I requested that these records be sent to our MRI department, Dain Colón MD 06/04/24 11:58 AM * Dain Colón MD - 06/04/2024 6:57 AM EDT Images from the original note were not included. . Cardiology Progress Note Patient info: Name: George Mehta : 1955 PCP: Mauro Berumen MD PCP phone number: [phone] Date of Admission: 06/02/2024 ( Hospital Day 2 days ) Attending:Delroy Fofana MD ID: 69 y.o. male with a h/o DM type 2, HTN, HLD, current smoker (2-3 cigarettes/day), HFrEF with anICD for low EF (~30%), and CAD with prior DC x3 with JENNA placed in [place], Melanoma, PAD, presented to [facility] with 1 hour of retrosternal [...] in the last 7068 hours. Invalid input(s): [id number] Recent Labs 06/03/24 2005 06/03/24 1748 06/03/24 1114 06/03/24 0754 06/02/24 2331 POCGLU 136 191 166 195 156 Heme No results for input(s): LDH, HAPTOGLOBIN, URICACID in the last 168 hours. ABG (Arterial Blood Gas) No results found for: PHART, PO2ART, CPU1TNY, RUU7EXH Microbiology: Microbiology Results (Last 30 days) No results found for the last 720 hours. Imaging: Results for orders placed or performed during the hospital encounter of 06/02/24 XR Chest One View (Exam End: 06/03/2024 2:41 AM) Result Value WORKSTATION ID [id number] Impression No radiographically evident acute cardiopulmonary process. Thank you for letting us participate in the care of this patient. If you are a health care provider and have any questions regarding this report, please contact the number below. For patients who have questions please contact the health home care provider that requested your imaging first. Chest wo Contrast (Generic) (Exam End: 06/03/2024 4:33 PM) Result Value WORKSTATION ID [id number] Impression Cardiomegaly. Biventricular ICD leads in place. Thank you for letting us participate in the care of this patient. If you are a health care provider and have any questions regarding this report, please contact the number below. For patients who have questions please contact the health home care provider that requested your imaging first. : Limited echo performed by fellow document control coordinator to assess LV function. Left ventricle is [...] ischemic cardiomyopathy with HFrEF (~30% EF), prior DC with stents, DM type 2, HTN, HLD, [...] -Lasix 40 mg IV given in the starch factory laborer; assess diuretic response, consider re-dosing -Continue [...] @YESSI@ Dain Colón MD (PGY-1) Cardiology M1-S2, #[id number] 06/04/2024, 6:57 AM Associated attestation - Melida [...] a lytic and brought directly to the Precision Crop Manager. Cardiac catheterization demonstrated multivessel disease with [...] -Diuresis with Timothyix Melida Valdes MD Staff Sheet Metal Pattern Cutter * Fatmata Mcallister PT - 06/03/2024 3:29 PM EDT Physical Therapy 06/03/24 1527 Evaluation & Treatment Document Type contact Total Minutes, Physical Therapy 0 Comment, Session Not Performed PT consult received/hx/current status reviewed. w/u ongoing following STEMI, intenventional plan TBD. Pt is independently mobile at present, will defer imminent asesssment and f.u as appropriate when POC determined (CABG vs PCI) Fatmata Mcallister PT, [facility] Pager [phone] Inpatient Physical Therapy * Marlin Gómez MD [...] Marlin Gómez MD Cardiology S2, Pager # [phone] 06/03/2024 * Delroy Fofana MD - 06/03/2024 7:16 AM EDT Images from the original note were not included. . Cardiology Progress Note Patient info: Name: George Mehta : 1955 PCP: Mauro Berumen MD PCP phone number: [phone] Date of Admission: 06/02/2024 ( Hospital Day 1 day ) Attending:Nuha Rojo MD ID: 69 y.o. male with a h/o DM type 2, HTN, HLD, current smoker (2-3 cigarettes/day), HFrEF with anICD for low EF (~30%), and CAD with prior DC x3 with JENNA placed in [place], Melanoma, PAD, presented to [facility] with 1 hour of retrosternal [...] in the last 7068 hours. Invalid input(s): [id number] Recent Labs 06/02/24 2331 POCGLU 156 Heme No results for input(s): LDH, HAPTOGLOBIN, URICACID in the last 168 hours. ABG (Arterial Blood Gas) No results found for: PHART, PO2ART, NRV3THP, ONW7EYQ Microbiology: Microbiology Results (Last 30 days) No results found for the last 720 hours. Imaging: Results for orders placed or performed during the hospital encounter of 06/02/24 XR Chest One View (Exam End: 06/03/2024 2:41 AM) Result Value WORKSTATION ID [id number] Impression No radiographically evident acute cardiopulmonary process. Thank you for letting us participate in the care of this patient. If you are a health care provider and have any questions regarding this report, please contact the number below. For patients who have questions please contact the health home care provider that requested your imaging first. : Limited echo performed by fellow document control coordinator to assess LV function. Left ventricle is [...] ischemic cardiomyopathy with HFrEF (~30% EF), prior DC with stents, DM type 2, HTN, HLD, [...] -Lasix 40 mg IV given in the starch factory laborer; assess diuretic response, consider re-dosing -Continue [...] of care per Dain Colón MD (medical billing assistant). Please refer to his note above for details. Very pleasant 69 year old male but he is obese, diabetic, and he is a SMOKER with known prior CAD and moderately reduced LVEF (30%). He has a pacer. History of surgical resection of melanoma on his head. The patient was transferred overnight to [facility] as a STEMI. He was treated initially with a lytic (TNK) and brought directly to the starch factory laborer. The cath demonstrated 3VD with diffuse [...] - 06/13/2024 10:58 AM EST ICU Blue (#[id number]) H&P Patient info: Name: George Mehta : 1955 PCP: Mauro Berumen MD PCP phone number: [phone] Date of Admission: 06/02/2024 ( Hospital Day 11 days ) Attending:Haja Byrnes MD ID: George Mehta is a 69 y.o. male with a h/o DM type 2, HTN, HLD, current smoker (2-3 cigarettes/day), HFrEF with an ICD for low EF (~30%), and CAD with prior DC x3 with JENNA placed in [facility], PAD, presented to [facility] with 1 hour of retrosternal CP (05/13) while watching TV, foundto have STEMI. HPI: Shahnaz Scanlon H&P 06/02 69 y.o. male with a h/o DM type 2, HTN, HLD, current smoker (2-3 cigarettes/day), HFrEF with an ICD for low EF (~30%), and CAD with prior DC x3 with JENNA placed in [place], [facility], PAD, presented to [facility] with 1 hour of retrosternal CP (05/13) while watching TV. CP was non-radiating, not asso ciated with diaphoresis, nausea, or SOB. Denies orthopnea, MARTÍNEZ, palpitations, or LE edema. ECG showed findings consistent with anterior STEMI. He received TNK and was transferred for PCI. Coronary angiography showed a small, non-dominant RCA with fwtn-ld-yrkcultn disease and a dominant,heavily calcified left system with prior stents in the LAD and OM. The LM bifurcates into the LAD and LCX, both heavily calcified. The proximal LCX has a 75% calcified, aneurysmal lesion, and an 80% calcified lesion distally before a large OM2. OM1 is a ADOPTION SERVICES MANAGER with in-stent restenosis, filling retrograde via collaterals. [...] 40 mg Lasix was administered in the starch factory laborer. Cardiac surgery was consulted and plan [...] Blood Gas) No results for input(s): PHART, ELG4KWM, PO2ART, UBF3ZDY, LACTATEVEN, DBN3UXV, PFRATIOART2 in the last 168 hours. VBG (Venous Blood Gas) Recent Labs 06/10/24 1742 PHVEN 7.34 PO2VEN 24 PAN8YIZ 27.4 Mixed Venous Sat No results for input(s): D5ULVF7 in the last 168 hours. Intake/Output Summary [...] in the last 7068 hours. Invalid input(s): DXXTNPOMCKG1P Recent Labs 06/13/24 0741 06/13/24 0325 06/12/24 2353 06/12/24 1932 06/12/24 1541 06/12/24 1121 06/12/24 0800 06/12/24 0425 06/11/24 2356 06/11/24 2025 06/11/24 1624 06/11/24 1108 POCGLU 126 99 141 158 113 207* 169 132 135 210* 81 233* Heme No results for input(s): LDH, HAPTOGLOBIN, URICACID in the last 168 hours. ABG (Arterial Blood Gas) No results for input(s): PHART, CYM6IYV, PO2ART, IZU3ZQS, LACTATEVEN, XJK4ATZ, PFRATIOART2 in the last 168 hours. VBG (Venous Blood Gas) Recent Labs 06/10/24 1742 PHVEN 7.34 PO2VEN 24 IFW2XNR 27.4 Mixed Venous Sat No results for input(s): F2OQHR8 in the last 168 hours. Microbiology: Microbiology Results (Last 30 days) No results found for the last 720 hours. Assessment & Plan: George Mehta is a 69 y.o. male with CAD, ischemic cardiomyopathy with HFrEF (~30% EF), prior DC with stents, DM type 2, HTN, HLD, active smoker, presented with anterior STEMI. Angiography revealedsevere multivessel CAD with extensive calcification and YUE 3 flow in all vessels, without a clearculprit lesion. Currently pain-free after TNK, Plavix, ASA, and heparin, with mildly elevated LVEDPat 40 mmHg and mild volume overload. Admitted to [facility] for clarence-operative management following IABP placement. Planned for CABG 06/14. 06/13/2024 Patient now s/p IABP placement. Procedure occurred without complication. IABP set to 1:1. Will continue with heparin for ASCVD. Plan for CABG 06/14. Patient NPO at [place]. #ASCVD / STEMI: -Holding Plavix; continue ASA [...] (Give Meds) Daily Healthy Menu Choices/Cardiac diet ([facility]-Diet) DVT Prophylaxis: SCD GI Prophylaxis: None Dispo: [...] TUD (abstinent since admission), ASCVD with multipleprior DC and PCIs, ICM/HFrEF LVEF 30% (all territories [...] is in the chart Rebeca Prado MD Anthropology And Archeology Instructor PGY6 [phone] * Shahnaz Scanlon MD - [...] low EF (~30%), and CAD with prior DC x3 with JENNA placed in [place], Melanoma, PAD, presented to [facility] with 1 hour of retrosternal CP (05/13) while watching TV. CP was non-radiating, not assoc iated with diaphoresis, nausea, or SOB. Denies orthopnea, MARTÍNEZ, palpitations, or LE edema. ECG showed findings consistent with anterior STEMI. He received TNK and was transferred for PCI. Coronary angiography showed a small, non-dominant RCA with izlj-vq-hupldrtu disease and a dominant,heavily calcified left system with prior stents in the LAD and OM. The LM bifurcates into the LAD and LCX, both heavily calcified. The proximal LCX has a 75% calcified, aneurysmal lesion, and an 80% calcified lesion distally before a large OM2. OM1 is a ADOPTION SERVICES MANAGER with in-stent restenosis, filling retrograde via collaterals. [...] 40 mg Lasix was administered in the starch factory laborer. Past Medical History: As per HPI [...] Affect: Mood normal. Behavior: Behavior normal. Diagnostics: [facility] 06/02/2024 Coronary angiography revealed small non [...] ischemic cardiomyopathy with HFrEF (~30% EF), prior DC with stents, DM type 2, HTN, HLD, [...] -Lasix 40 mg IV given in the starch factory laborer; assess diuretic response. -Continue carvedilol; hold [...] & Follow-up Care: Contact information for follow-up [facility] [address] [facility] [address] Cardiac Rehab, [address] [facility] [address] RN AVILA confirmed with [facility] that they [...] MEDICARE Payor: AAR MANAGED MEDICARE / Plan: [facility] MANAGED MEDICARE COMPLETE / Product [...] Goal: Improved Activity Tolerance 06/20/2024 1028 by Micehlle Orozco RN Outcome: Ongoing (Interventions Implemented as [...] Roberts RN - 06/18/2024 10:50 AM EST [facility] CARDIAC REHABILITATION George Mehta was seen today regarding participation in the outpatient Phase 2 Cardiac Rehabilitation at [facility]. The patient agrees to a [...] recs Patient is insured through: Primary Insurance: [employer] MANAGED MEDICARE Payor: [email or web address] MANAGED MEDICARE / Plan: AARP RPPO MANAGED MEDICARE COMPLETE / Product Type: *No Product type* / Secondary Insurance: N/A Last Physical Therapy Recommendation: (home with ) with to be determined (06/15/24 1028) Plan for discharge is: Home w/ Services Outpatient Agency/Support Group Needs: Homecare agency Agency Choices: [facility] Home Health Services: Medication checks, Registered Nurse, Physical Therapy Agency Referrals: pending clinical course and PT/OT recs [facility] [address] [facility] [address] PHONE: [phone] FAX: [phone] Transportation: family or friend will provide Barriers [...] Agency/Support Group Needs: Homecare agency Agency Choices: [facility]: Medication checks, Registered Nurse, Physical Therapy Agency Referrals: pending clinical course and PT/OT recs [facility]. [address] [facility] [address] PHONE: [phone] FAX: [phone] Transportation: family or friend will provide Barriers [...] Loja MD - 06/14/2024 8:48 AM EST [facility] Operative Note Patient Name: George Mehta : [id number] MR#: [id number] Case Date: 06/14/2024 Surgeon: Surgeons and Role: * Bobby Loja MD - Primary * Rashi Bass PA - Physician Train Starter Preoperative diagnosis: CAD, MARIALUISA flickering mass on [...] procedures today and tomorrow. Report called to [facility] - all belongings with patient. PLAN MOVING FORWARD: labor delivery rn and transfer to [facility]. INDIVIDUALIZED FALL PREVENTION [...] Agency/Support Group Needs: Homecare agency, Agency Choices: [facility]. Home Health Services: Medication checks, Registered Nurse, Physical Therapy Agency Referrals: [facility]. [address] [place] [phone] RN / PT Routed 06/10 Transportation: family [...] with home health services when medically ready. live hanger/Dumpcart Driver will continue to follow patient???s progress and remain available if situation changes for coordination of care, psychosocial support and/or discharge planning. Anticipated Date of Discharge: 06/18/2024 Mariia Montero RN CM Extension [phone] * Plan of Care - Migel Javier [...] No Patient is insured through: Primary Insurance: [facility] MANAGED MEDICARE Payor: [facility] MANAGED MEDICARE / Plan: [facility] MANAGED MEDICARE COMPLETE / Product [...] consult for high risk PCI vs CABG live hanger/Dumpcart Driver will continue to follow patient???s progress and remain available if situation changes for coordination of care, psychosocial support and/or discharge planning. Anticipated Date of Discharge: 06/11/2024 Mariia Montero RN Extension [phone] * Plan of Care - Becca Hope [...] of Hospital-Acquired Illness or Injury 06/07/2024656 by Bceca Hope RN Outcome: Ongoing (Interventions Implemented as [...] ischemic cardiomyopathy with HFrEF (~30% EF), prior DC with stents, DM type 2, HTN, HLD, [...] CABG and to provide a review of [facility] diabetes care. Diabetes History: George Mehta has [...] Breakfast- varies - eggs with khoury or yi muffin Lunch- turkey sandwich Supper- meat and [...] ischemic cardiomyopathy with HFrEF (~30% EF), prior DC with stents, DM type 2, HTN, HLD, [...] Baumann APRN Endocrinology Diabetes Management Service Pager: [phone] Weekends please page [phone] 80 minute visit was spent in counseling [...] Heart Rate and Rhythm 06/05/2024631 by Migel Javeir RN Outcome: Ongoing (Interventions Implemented as Appropriate) [...] y.o. male with a PMHx of previous DC s/p PCI x3, ICM/HFrEF (LVEF 30%) s/p ICD, DMII, HTN, HLD, remote melanoma, and smoker who presented to [facility] last night via EMS after developing acute, severe chest pain while watching TV. Patient was ruled in for STEMI, given TNK, ASA, plavix, heparin gtt, and sent to [facility] for coronary angiography. LHC demonstrated severely calcified left coronary system with notable LCx 75/80% lesions and ADOPTION SERVICES MANAGER OM1 with ISR with collateral retrograde filling, [...] elevation myocardial infarction) Past Medical History: previous DC s/p PCI x3 ICM/HFrEF (LVEF 30%) s/p [...] is large. OM1 appears to be a ADOPTION SERVICES MANAGER, with in stentrestenosis and fills retrograde via [...] y.o. male admitted with STEMI s/p TNK, [facility] showing multivessel CAD including ISR, no [...] to our service. Signed: Paula Treviño PA-C [facility] Section of Cardiac Surgery Date: 06/03/2024 * Initial Assessments - Catina Estrada MSW - 06/03/2024 10:32 AM EDT Office of Care Management Initial Assessment CHINA Humphrey reviewed record and discussed patient with Care Team. Source of Information: Team, bedside nurse, medical record, and Patient DEVELOPMENT SCIENTIST Introduced self/reviewed role; services accepted. Admitted [...] surrogate would be surrogate decision maker per [place] surrogate decision making law. (Only good for 180 days) Any patient receiving care in [place] must abide by [place] law. The hierarchy for surrogate decision making [...] The agent with financial power of family service caseworker or a conservator appointed in accordance with [...] In the past 12 months has the [employer], gas, oil, or water [employer] threatened to shut off services in [...] in the bathroom) Home Address confirmed as: [address] [place] [address] [address] [facility] [address] Social & Family Supports: All names listed [...] MEDICARE Payor: AARP MANAGED MEDICARE / [facility]: [facility] COMPLETE / Product Type: *No Product type* / Secondary Insurance: N/A ; Prescription Coverage: Yes Preferred Pharmacy: [id number], [place] - [address] [facility] [address] [facility] [address] Status: Patient is a : No Primary Care Provider confirmed: Mauro Berumen MD [phone] Patient/Caregiver Goals of Treatment: Potential Needs for [...] care as indicated. [facility], [phone]. [phone] * Brief Op Note - Angeles Gaxiola PA - 06/03/2024 12:23 AM EDT Preliminary Cardiac Catheterization Procedure Note: Patient Name: George Mehta : [id number] MR#: [id number] Case Date: 06/02/2024 - 06/03/2024 Poultry Offal Worker: Surgeons and Role: * Nuha Shen MD - Primary * Angeles Gaxiola PA - Physician Train Starter Preoperative diagnosis: STEMI Postoperative diagnosis: * STEMI * Procedure(s) performed: RRA access [facility] Coronary angiogram IVUS LM/LAD/LCX Access: 6 Fr RRA A time-out was conducted prior to the start of the procedure to verify the correct patient and procedure, procedure location, and all relevant critical information. Preliminary findings: 69 year old current smoker (1-2 cigarette's per day), DM type 2, hypertension, dyslipidemia, ICD for HFrEF/low EF (~30%), CAD with prior DC and 3 stents historically (in [place]) who presented to [facility] with 1 hour of rest [...] is large. OM1 appears to be a ADOPTION SERVICES MANAGER, with in stentrestenosis and fills retrograde via L > L collaterals. The LAD is heavily calcified extending from the proximal LAD into the mid LAD beyond an involved Diagonal branch artery. There appears to be YEU 3 flow in all vessels with no [...] receive 40 mg of lasix in the starch factory laborer. 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) 06/14/2024 7:34 AM EST CAD Endoscopy W/Video-Asst Vein [place], Cabg ([id number]) 06/14/2024 7:34 AM EST CAD Cabg, Artery-Vein, Two ([id number]) 06/14/2024 7:34 AM EST CAD Cabg, Arterial, Single ([id number]) 06/14/2024 7:34 AM EST CAD TRANSESOPHAGEAL ECHOCARDIOGRAM IN THE OR Routine 06/14/2024 7:20 AM EST Coronary artery disease involving kenaitze coronary artery of kenaitze heart without angina pectoris POC, GLUCOSE Routine [...] 06/13/2024 4:09 PM EST TYPE AND SCREEN ([facility]/CGP/RAFITA) STAT 06/13/2024 11:53 AM EST POC, GLUCOSE [...] O RDERABLES [facility] [place] [address] * (ABNORMAL) Basic Metabolic Panel (06/21/2024 2:09 AM EST) Glucose 169 65 - 199 mg/dL 06/21/2024 3:10 AM EST [facility] Comment:Glucose Concentratio n >=200 mg/dL plus symptoms is consistent with Diabetes Mellitus. Blood Urea Nitrogen 27(H) 10 - 20 mg/dL 06/21/2024 3:10 AM [facility] Creatinine 1.24 0.80 - 1.50 mg/dL [...] APRN CHEMISTRY ORDERABL ES Performing Organization Address City/[facility]/ZIP Co de Phone Number [facility] [place] [address] * POC, GLUCOSE (06/21/2024 12:04 AM EST) [...] O RDERABLES [facility] [place] [address] * POC, GLUCOSE (06/20/2024 11:14 PM EST) [...] CARE TEST O RDBECKIE Performing Organization Address City/[facility]/ZIP Co de Phone Number [facility] [place] [address] * POC, GLUCOSE (06/20/2024 7:16 PM EST) [...] CARE TEST Abimael MAHER Performing Organization Address [facility] Co de Phone Number [facility] [place] [address] * POC, GLUCOSE (06/20/2024 3:39 PM EST) [...] CARE TEST O NIKA Performing Organization Address City/[facility]/ZIP Co de Phone Number [facility] [place] [address] * POC, GLUCOSE (06/20/2024 12:02 PM EST) Glucometer, POC 173 65 - 199 mg/dL 06/20/2024 12:03 PM EST [facility] Comment:Supplemental ranges: <140 mg/dL before meals <180 mg/dL all other times of the day. Blood CAPILLARY BLOOD / Unknown 06/20/2024 12:02 PM EST 06/20/2024 12:03 PM EST Bobby Loja MD POINT OF CARE TEST Abimael MAHER Performing Organization Address [facility] Co de Phone Number [facility] [place] [address] * POC, GLUCOSE (06/20/2024 7:10 AM EST) Glucometer, POC 130 65 - 199 mg/dL 06/20/2024 7:11 AM [facility] Comment:Supplemental ranges: <140 mg/dL before meals <180 mg/dL all other times of the day. Blood CAPILLARY BLOOD / Unknown 06/20/2024 7:10 AM EST 06/20/2024 7:11 AM EST Bobby Loja MD POINT OF CARE TEST Abimael MAHER Performing Organization Address [facility] de Phone Number [facility] [place] [address] * (ABNORMAL) Basic Metabolic Panel (06/20/2024 2:28 [...] ORDERABL ES [facility] [place] [address] * POC, GLUCOSE (06/20/2024 12:32 AM EST) Glucometer, POC 86 65 - 199 mg/dL 06/20/2024 12:32 AM EST [facility] Comment:Supplemental ranges: <140 mg/dL before meals <180 mg/dL all other times of the day. Blood CAPILLARY BLOOD / Unknown 06/20/2024 12:32 AM EST 06/20/2024 12:32 AM EST Bobby Loja MD POINT OF CARE TEST O NIKA Performing Organization Address City/[facility]/ZIP Co de Phone Number [facility] [place] [address] * (ABNORMAL) POC, GLUCOSE (06/20/2024 12:02 AM EST) Glucometer, POC 59(L) 65 - 199 mg/dL 06/20/2024 12:02 AM EST [facility] Comment:Supplemental ranges: <140 mg/dL before meals <180 mg/dL all other times of the day. Blood CAPILLARY BLOOD / Unknown 06/20/2024 12:02 AM EST 06/20/2024 12:03 AM EST Bobby Loja MD POINT OF CARE TEST O NIKA Performing Organization Address [facility] Co de Phone Number [facility] [place] [address] * POC, GLUCOSE (06/19/2024 8:15 PM EST) Glucometer, POC 131 65 - 199 mg/dL 06/19/2024 8:15 PM EST [facility] Comment:Supplemental ranges: <140 mg/dL before meals <180 mg/dL all other times of the day. Blood CAPILLARY BLOOD / Unknown 06/19/2024 8:15 PM EST 06/19/2024 8:15 PM EST Bobby Loja MD POINT OF CARE TEST O NIKA Performing Organization Address City/[facility]/ZIP Co de Phone Number [facility] [place] [address] * POC, GLUCOSE (06/19/2024 6:01 PM EST) [...] CARE TEST O RDBECKIE Performing Organization Address City/[facility] Co de Phone Number [facility] [place] [address] * POC, GLUCOSE (06/19/2024 4:51 PM EST) [...] CARE TEST O NIKA Performing Organization Address [facility] Co de Phone Number [facility] [place] [address] * POC, GLUCOSE (06/19/2024 12:37 PM EST) [...] CARE TEST O NIKA Performing Organization Address City/[facility] Co de Phone Number [facility] [place] [address] * POC, GLUCOSE (06/19/2024 11:20 AM EST) Glucometer, POC 185 65 - 199 mg/dL 06/19/2024 11:21 AM EST [facility] Comment:Supplemental ranges: <140 mg/dL before meals <180 mg/dL all other times of the day. Blood CAPILLARY BLOOD / Unknown 06/19/2024 11:20 AM EST 06/19/2024 11:21 AM EST Bobby Loja MD POINT OF CARE TEST O NIKA Performing Organization Address City/[facility]/ZIP Co de Phone Number [facility] [place] [address] * POC, GLUCOSE (06/19/2024 7:21 AM EST) Glucometer, POC 125 65 - 199 mg/dL 06/19/2024 7:21 AM EST [facility] Comment:Supplemental ranges: <140 mg/dL before meals <180 mg/dL all other times of the day. Blood CAPILLARY BLOOD / Unknown 06/19/2024 7:21 AM EST 06/19/2024 7:22 AM EST Bobby Loja MD POINT OF CARE TEST O NIKA Performing Organization Address [facility] Co de Phone Number [facility] [place] [address] * POC, GLUCOSE (06/19/2024 4:52 AM EST) Glucometer, POC 125 65 - 199 mg/dL 06/19/2024 4:52 AM EST [facility] Comment:Supplemental ranges: <140 mg/dL before meals <180 mg/dL all other times of the day. Blood CAPILLARY BLOOD / Unknown 06/19/2024 4:52 AM EST 06/19/2024 4:52 AM EST Bobby Loja MD POINT OF CARE TEST O NIKA Performing Organization Address City/[facility]/ZIP Co de Phone Number [facility] [place] [address] * POC, GLUCOSE (06/19/2024 4:13 AM EST) Glucometer, POC 67 65 - 199 mg/dL 06/19/2024 4:13 AM EST [facility] Comment:Supplemental ranges: <140 mg/dL before meals <180 mg/dL all other times of the day. Blood CAPILLARY BLOOD / Unknown 06/19/2024 4:13 AM EST 06/19/2024 4:13 AM EST Bobby Loja MD POINT OF CARE TEST O NIKA Performing Organization Address [facility] Co de Phone Number [facility] [place] [address] * (ABNORMAL) POC, GLUCOSE (06/19/2024 3:48 AM EST) Glucometer, POC 51(LLL) 65 - 199 mg/dL 06/19/2024 3:48 AM EST [facility] Comment:Supplemental ranges: <140 mg/dL before meals <180 mg/dL all other times of the day. Blood CAPILLARY BLOOD / Unknown 06/19/2024 3:48 AM EST 06/19/2024 3:48 AM EST Bobby Loja MD POINT OF CARE TEST O RDERAPIETER Performing Organization Address City/[facility]/ZIP Co de Phone Number [facility] [place] [address] * (ABNORMAL) Basic Metabolic Panel (06/19/2024 3:44 [...] 135 - 145 mMol/L 06/19/2024 4:48 AM [facility] Potassium 3.6 3.5 - 5.0 mMol/L 06/19/2024 4:48 AM [facility] Chloride 100 98 - 107 mMol/L 06/19/2024 4:48 AM [facility] Carbon Dioxide 29 22 - 31 mMol/L 06/19/2024 4:48 AM [facility] Anion Gap 9 5 - 15 mMol/L 06/19/2024 4:48 AM [facility] Calcium 8.8 8.5 - 10.5 mg/dL 06/19/2024 4:48 AM [facility] Est [...] EST 06/19/2024 3:51 AM EST Keila Dayan TRAIN STARTER CHEMISTRY ORDERABL ES [facility] [place] [address] * POC, GLUCOSE (06/19/2024 12:23 AM EST) Glucometer, POC 82 65 - 199 mg/dL 06/19/2024 12:23 AM [facility] Comment:Supplemental ranges: <140 mg/dL before meals <180 mg/dL all other times of the day. Blood CAPILLARY BLOOD / Unknown 06/19/2024 12:23 AM EST 06/19/2024 12:23 AM EST Narrative Authorizing Provider Result Saranya Loja MD POINT OF CARE TEST O NIKA Performing Organization Address City/[facility]/ZIP Co de Phone Number [facility] [place] [address] * POC, GLUCOSE (06/18/2024 11:08 PM EST) Glucometer, POC 73 65 - 199 mg/dL 06/18/2024 11:08 PM EST [facility] Comment:Supplemental ranges: <140 mg/dL before meals <180 mg/dL all other times of the day. Blood CAPILLARY BLOOD / Unknown 06/18/2024 11:08 PM EST 06/18/2024 11:08 PM EST Bobby Loja MD POINT OF CARE TEST Abimael MAHER Performing Organization Address [facility] Co de Phone Number [facility] [place] [address] * POC, GLUCOSE (06/18/2024 7:32 PM EST) [...] CARE TEST O NIKA Performing Organization Address City/[facility]/ZIP Co de Phone Number [facility] [place] [address] * POC, GLUCOSE (06/18/2024 6:08 PM EST) [...] O NIKA [facility] [place] [address] * POC, GLUCOSE (06/18/2024 4:17 PM EST) Glucometer, POC 144 65 - 199 mg/dL 06/18/2024 4:17 PM EST [facility] Comment:Supplemental ranges: <140 mg/dL before meals <180 mg/dL all other times of the day. Blood CAPILLARY BLOOD / Unknown 06/18/2024 4:17 PM EST 06/18/2024 4:17 PM EST Bobby Loja MD POINT OF CARE TEST O NIKA Performing Organization Address [facility]/ZIP Co de Phone Number [facility] [place] [address] * POC, GLUCOSE (06/18/2024 12:09 PM EST) [...] O NIKA [facility] [place] [address] * POC, GLUCOSE (06/18/2024 7:49 AM EST) [...] O RDERABLES [facility] [place] [address] * (ABNORMAL) Basic Metabolic Panel (06/18/2024 4:19 [...] APRN CHEMISTRY ORDERABL ES Performing Organization Address City/[facility]/ZIP Co de Phone Number [facility] [place] [address] * POC, GLUCOSE (06/18/2024 3:50 AM EST) [...] O RDERABLES [facility] [place] [address] * POC, GLUCOSE (06/17/2024 11:10 PM EST) Glucometer, POC 92 65 - 199 mg/dL 06/17/2024 11:10 PM EST [facility] Comment:Supplemental ranges: <140 mg/dL before meals <180 mg/dL all other times of the day. Blood CAPILLARY BLOOD / Unknown 06/17/2024 11:10 PM EST 06/17/2024 11:10 PM EST Bobby Loja MD POINT OF CARE TEST O NIKA Performing Organization Address [facility] Co de Phone Number [facility] [place] [address] * POC, GLUCOSE (06/17/2024 7:54 PM EST) Glucometer, POC 126 65 - 199 mg/dL 06/17/2024 7:54 PM EST [facility] Comment:Supplemental ranges: <140 mg/dL before meals <180 mg/dL all other times of the day. Blood CAPILLARY BLOOD / Unknown 06/17/2024 7:54 PM EST 06/17/2024 7:54 PM EST Bobby Loja MD POINT OF CARE TEST O NIKA Performing Organization Address [facility] Co de Phone Number [facility] [place] [address] * POC, GLUCOSE (06/17/2024 4:07 PM EST) [...] CARE TEST O NIKA Performing Organization Address City/[facility] Co de Phone Number [facility] [place] [address] * XR Chest PA & Lateral (Generic) (06/17/2024 1:46 PM EST) WORKSTATION ID [id number] RAD Anatomical Region Laterality Modality Chest N/A [...] who have questions please contact the health home care provider that requested your imaging first. ? Electronically signed by: Josselyn Spence MD, [facility] ([phone]), at 06/17/2024 4:49 PM Narrative 06/17/2024 4:49 [...] patients who have questions please contactthe health home care provider that requested your imaging first. Electronically signed by: Josselyn Spence MD, [facility]([phone]), at 06/17/2024 4:49 PM Keila Hanley TRAIN STARTER IMG DX ORDERABLES * (ABNORMAL) POC, GLUCOSE [...] CARE TEST O NIKA Performing Organization Address City/[facility]/ZIP Co de Phone Number [facility] [place] [address] * POC, GLUCOSE (06/17/2024 7:49 AM EST) [...] O NIKA [facility] [place] [address] * POC, GLUCOSE (06/17/2024 4:16 AM EST) [...] Address City/[facility]/ZIP Co de Phone Number [facility] [place] [address] * Lactate, Whole Blood (06/17/2024 2:39 AM EST) [facility] Lactate, Whole Blood 1.3 0.5 - 2.2 mmol/L 06/17/2024 2:46 AM EST [facility] Blood VENOUS BLOOD SPECIMEN / Unknown Venipuncture / Unknown 06/17/2024 2:39 AM EST 06/17/2024 2:43 AM EST Bobby Loja MD CHEMISTRY ORDERABLES [facility] [place] [address] * (ABNORMAL) Hemogram (06/17/2024 2:39 AM EST) [facility] White Blood Cell 13.53(H) 4.00 - 9.50 x10(3)/mc L 06/17/2024 2:53 AM EST [facility] Red Blood Cell 3.55(L) 4.58 - 5.54 x10(6)/mc L 06/17/2024 2:53 AM EST [facility] Hemoglobin 10.8(L) 13.7 - 16.5 g/dL 06/17/2024 2:53 AM EST [facility] Hematocrit 33.0(L) 40.5 - 48.5 % 06/17/2024 2:53 AM [facility] Mean Cell Volume 93.0 82.9 - [...] ORDERABLE S [facility] [place] [address] * (ABNORMAL) Basic Metabolic Panel (06/17/2024 2:39 AM EST) Glucose 149 65 - 199 mg/dL 06/17/2024 3:14 AM [facility] Comment:Glucose [...] CHEMISTRY ORDERABLES [facility] [place] [address] * (ABNORMAL) POC, GLUCOSE (06/17/2024 12:13 AM EST) Glucometer, POC 211(H) 65 - 199 mg/dL 06/17/2024 12:13 AM EST [facility] Comment:Supplemental ranges: <140 mg/dL before meals <180 mg/dL all other times of the day. Blood CAPILLARY BLOOD / Unknown 06/17/2024 12:13 AM EST 06/17/2024 12:14 AM EST Bobby Loja MD POINT OF CARE TEST O NIKA Performing Organization Address City/[facility] Co de Phone Number [facility] [place] [address] * (ABNORMAL) POC, GLUCOSE (06/16/2024 7:22 PM [...] O NIKA [facility] [place] [address] * (ABNORMAL) POC, GLUCOSE (06/16/2024 6:14 PM EST) Glucometer, POC 220(H) 65 - 199 mg/dL 06/16/2024 6:14 PM EST [facility] Comment:Supplemental ranges: <140 mg/dL before meals <180 mg/dL all other times of the day. Blood CAPILLARY BLOOD / Unknown 06/16/2024 6:14 PM EST 06/16/2024 6:14 PM EST Bobby Loja MD POINT OF CARE TEST O RDBECKIE Performing Organization Address [facility] Co de Phone Number [facility] [place] [address] * Lactate, Whole Blood (06/16/2024 6:14 PM EST) Lactate, Whole Blood 1.8 0.5 - 2.2 mmol/L 06/16/2024 6:27 PM EST [facility] Blood VENOUS BLOOD SPECIMEN / Unknown Venipuncture / Unknown 06/16/2024 6:14 PM EST 06/16/2024 6:25 PM EST Bobby Loja MD CHEMISTRY ORDERABLES Performing Organization Address [facility] Phone Number [facility] [place] [address] * (ABNORMAL) POC, GLUCOSE (06/16/2024 4:14 PM EST) Glucometer, POC 240(H) 65 - 199 mg/dL 06/16/2024 4:14 PM EST [facility] Comment:Supplemental ranges: <140 mg/dL before meals <180 mg/dL all other times of the day. Blood CAPILLARY BLOOD / Unknown 06/16/2024 4:14 PM EST 06/16/2024 4:14 PM EST Bobby Loja MD POINT OF CARE TEST O NIKA Performing Organization Address [facility] Co de Phone Number [facility] [place] [address] * POC, GLUCOSE (06/16/2024 11:49 AM EST) [...] O RDERABLES [facility] [place] [address] * (ABNORMAL) Hemogram (06/16/2024 11:44 AM EST) [...] MD HEMATOLOGY ORDERABLE S Performing Organization Address [facility]/ZIP Co de Phone Number [facility] [place] [address] * Lactate, Whole Blood (06/16/2024 9:02 AM EST) Lactate, Whole Blood 1.8 0.5 - 2.2 mmol/L 06/16/2024 9:19 AM EST [facility] Blood VENOUS BLOOD SPECIMEN / Unknown Venipuncture / Unknown 06/16/2024 9:02 AM EST 06/16/2024 9:17 AM EST Bobby Loja MD CHEMISTRY ORDERABLES Performing Organization Address [facility] Co de Phone Number [facility] [place] [address] * POC, GLUCOSE (06/16/2024 7:44 AM EST) [...] O RDERABLES [facility] [place] [address] * POC, GLUCOSE (06/16/2024 4:01 AM EST) [...] O RDERAPIETER [facility] [place] [address] * (ABNORMAL) Basic Metabolic Panel (06/16/2024 2:23 [...] Address City/[facility]/ZIP Co de Phone Number [facility] [place] [address] * POC, GLUCOSE (06/16/2024 2:21 AM EST) [...] Address City/[facility]/ZIP Co de Phone Number [facility] [place] [address] * (ABNORMAL) POC, GLUCOSE (06/16/2024 12:09 AM EST) Glucometer, POC 222(H) 65 - 199 mg/dL 06/16/2024 12:09 AM EST [facility] Comment:Supplemental ranges: <140 mg/dL before meals <180 mg/dL all other times of the day. Blood CAPILLARY BLOOD / Unknown 06/16/2024 12:09 AM EST 06/16/2024 12:09 AM EST Bobby Loja MD POINT OF CARE TEST O NIKA Performing Organization Address [facility] Co de Phone Number [facility] [place] [address] * (ABNORMAL) POC, GLUCOSE (06/15/2024 10:07 PM EST) Glucometer, POC 320(H) 65 - 199 mg/dL 06/15/2024 10:07 PM EST [facility] Comment:Supplemental ranges: <140 mg/dL before meals <180 mg/dL all other times of the day. Blood CAPILLARY BLOOD / Unknown 06/15/2024 10:07 PM EST 06/15/2024 10:07 PM EST Bobby Loja MD POINT OF CARE TEST O NIKA Performing Organization Address [facility] Co de Phone Number [facility] [place] [address] * (ABNORMAL) POC, GLUCOSE (06/15/2024 7:56 PM EST) Glucometer, POC 304(H) 65 - 199 mg/dL 06/15/2024 7:56 PM EST [facility] Comment:Supplemental ranges: <140 mg/dL before meals <180 mg/dL all other times of the day. Blood CAPILLARY BLOOD / Unknown 06/15/2024 7:56 PM EST 06/15/2024 7:56 PM EST Bobby Loja MD POINT OF CARE TEST Abimael MAHER Performing Organization Address City/[facility] Co de Phone Number [facility] [place] [address] * (ABNORMAL) POC, GLUCOSE (06/15/2024 7:52 PM EST) Glucometer, POC 288(H) 65 - 199 mg/dL 06/15/2024 7:52 PM EST [facility] Comment:Supplemental ranges: <140 mg/dL before meals <180 mg/dL all other times of the day. Blood CAPILLARY BLOOD / Unknown 06/15/2024 7:52 PM EST 06/15/2024 7:52 PM EST Bobby Loja MD POINT OF CARE TEST O NIKA Performing Organization Address City/[facility]/ZIP Co de Phone Number [facility] [place] [address] * POC, GLUCOSE (06/15/2024 4:21 PM EST) [...] O NIKA [facility] [place] [address] * POC, GLUCOSE (06/15/2024 3:27 PM EST) Glucometer, POC 155 65 - 199 mg/dL 06/15/2024 3:27 PM EST [facility] Comment:Supplemental ranges: <140 mg/dL before meals <180 mg/dL all other times of the day. Blood CAPILLARY BLOOD / Unknown 06/15/2024 3:27 PM EST 06/15/2024 3:27 PM EST Bobby Loja MD POINT OF CARE TEST O NIKA Performing Organization Address [facility] Co de Phone Number [facility] [place] [address] * POC, GLUCOSE (06/15/2024 2:23 PM EST) Glucometer, POC 160 65 - 199 mg/dL 06/15/2024 2:23 PM EST [facility] Comment:Supplemental ranges: <140 mg/dL before meals <180 mg/dL all other times of the day. Blood CAPILLARY BLOOD / Unknown 06/15/2024 2:23 PM EST 06/15/2024 2:23 PM EST Bobby Loja MD POINT OF CARE TEST O NIKA Performing Organization Address [facility] Co de Phone Number [facility] [place] [address] * POC, GLUCOSE (06/15/2024 1:26 PM EST) Glucometer, POC 167 65 - 199 mg/dL 06/15/2024 1:26 PM EST [facility] Comment:Supplemental ranges: <140 mg/dL before meals <180 mg/dL all other times of the day. Blood CAPILLARY BLOOD / Unknown 06/15/2024 1:26 PM EST 06/15/2024 1:26 PM EST Bobby Loja MD POINT OF CARE TEST O NIKA Performing Organization Address [facility] Co de Phone Number [facility] [place] [address] * (ABNORMAL) POC, GLUCOSE (06/15/2024 12:55 PM EST) Glucometer, POC 210(H) 65 - 199 mg/dL 06/15/2024 12:55 PM EST [facility] Comment:Supplemental ranges: <140 mg/dL before meals <180 mg/dL all other times of the day. Blood CAPILLARY BLOOD / Unknown 06/15/2024 12:55 PM EST 06/15/2024 12:55 PM EST Bobby Loja MD POINT OF CARE TEST Abimael MAHER Performing Organization Address City/[facility]/ZIP Co de Phone Number [facility] [place] [address] * (ABNORMAL) POC, GLUCOSE (06/15/2024 11:29 AM EST) Glucometer, POC 220(H) 65 - 199 mg/dL 06/15/2024 11:29 AM EST [facility] Comment:Supplemental ranges: <140 mg/dL before meals <180 mg/dL all other times of the day. Blood CAPILLARY BLOOD / Unknown 06/15/2024 11:29 AM EST 06/15/2024 11:29 AM EST Bobby Loja MD POINT OF CARE TEST Abimael MAHER Performing Organization Address City/[facility] Co de Phone Number [facility] [place] [address] * (ABNORMAL) Basic Metabolic Panel (06/15/2024 11:23 [...] Address City/[facility]/ZIP Co de Phone Number [facility] [place] [address] * POC, GLUCOSE (06/15/2024 10:29 AM EST) [facility] Signature Glucometer, POC 189 65 - 199 mg/dL 06/15/2024 10:29 AM EST [facility] Comment:Supplemental ranges: <140 mg/dL before meals <180 mg/dL all other times of the day. Blood CAPILLARY BLOOD / Unknown 06/15/2024 10:29 AM EST 06/15/2024 10:29 AM EST Bobby Loja MD POINT OF CARE TEST O RDERABLES [facility] [place] [address] * POC, GLUCOSE (06/15/2024 9:45 AM EST) Glucometer, POC 178 65 - 199 mg/dL 06/15/2024 9:45 AM [facility] Comment:Supplemental ranges: <140 mg/dL before meals <180 mg/dL all other times of the day. Blood CAPILLARY BLOOD / Unknown 06/15/2024 9:45 AM EST 06/15/2024 9:45 AM EST Bobby Loja MD POINT OF CARE TEST Abimael MAHER Performing Organization Address City/[facility]/ZIP Co de Phone Number [facility] [place] [address] * (ABNORMAL) Cooximetry, POC (06/15/2024 9:31 AM [...] CARE TEST O RDERABLES Performing Organization Address [facility]/ZIP Co de Phone Number [facility] [place] [address] * Cooximetry, POC (06/15/2024 9:22 AM EST) [...] CARE TEST O RDERABLES Performing Organization Address [facility] Co de Phone Number [facility] [place] [address] * (ABNORMAL) Blood Gas, Arterial POC (06/15/2024 [...] O RDERABLES [facility] [place] [address] * (ABNORMAL) POC, GLUCOSE (06/15/2024 8:37 AM EST) Glucometer, POC 204(H) 65 - 199 mg/dL 06/15/2024 8:37 AM EST [facility] Comment:Supplemental ranges: <140 mg/dL before meals <180 mg/dL all other times of the day. Blood CAPILLARY BLOOD / Unknown 06/15/2024 8:37 AM EST 06/15/2024 8:37 AM EST Bobby Loja MD POINT OF CARE TEST O NIKA Performing Organization Address City/[facility]/ZIP Co de Phone Number [facility] [place] [address] * POC, GLUCOSE (06/15/2024 7:37 AM EST) Glucometer, POC 199 65 - 199 mg/dL 06/15/2024 7:37 AM EST [facility] Comment:Supplemental ranges: <140 mg/dL before meals <180 mg/dL all other times of the day. Blood CAPILLARY BLOOD / Unknown 06/15/2024 7:37 AM EST 06/15/2024 7:38 AM EST Bobby Loja MD POINT OF CARE TEST Abimael MAHER Performing Organization Address City/[facility]/ZIP Co de Phone Number [facility] [place] [address] * (ABNORMAL) POC, GLUCOSE (06/15/2024 7:01 AM [...] [facility] [place] [address] * XR Chest One View (06/15/2024 6:31 AM EST) WORKSTATION ID [id number] RAD Anatomical Region Laterality Modality Chest N/A [...] who have questions please contact the health home care provider that requested your imaging first. ? Narrative [...] patients who have questions please contactthe health home care provider that requested your imaging first. Bobby Loja [...] O RDERABLES [facility] [place] [address] * POC, GLUCOSE (06/15/2024 5:06 AM EST) Glucometer, POC 160 65 - 199 mg/dL 06/15/2024 5:06 AM EST [facility] Comment:Supplemental ranges: <140 mg/dL before meals <180 mg/dL all other times of the day. Blood CAPILLARY BLOOD / Unknown 06/15/2024 5:06 AM EST 06/15/2024 5:06 AM EST Bobby Loja MD POINT OF CARE TEST O RDERABLES Performing Organization Address [facility] Co de Phone Number [facility] [place] [address] * POC, GLUCOSE (06/15/2024 4:05 AM EST) Glucometer, POC 160 65 - 199 mg/dL 06/15/2024 4:06 AM EST [facility] Comment:Supplemental ranges: <140 mg/dL before meals <180 mg/dL all other times of the day. Blood CAPILLARY BLOOD / Unknown 06/15/2024 4:05 AM EST 06/15/2024 4:06 AM EST Bobby Loja MD POINT OF CARE TEST O NIKA Performing Organization Address [facility] Co de Phone Number [facility] [place] [address] * POC, GLUCOSE (06/15/2024 3:07 AM EST) Glucometer, POC 151 65 - 199 mg/dL 06/15/2024 3:07 AM EST [facility] Comment:Supplemental ranges: <140 mg/dL before meals <180 mg/dL all other times of the day. Blood CAPILLARY BLOOD / Unknown 06/15/2024 3:07 AM EST 06/15/2024 3:07 AM EST Bobby Loja MD POINT OF CARE TEST O NIKA Performing Organization Address [facility] Co de Phone Number [facility] [place] [address] * (ABNORMAL) Basic Metabolic Panel (06/15/2024 1:48 AM EST) Glucose 140 65 - 199 mg/dL 06/15/2024 2:38 AM EST [facility] Comment:Glucose Concentratio n >=200 mg/dL plus symptoms is consistent with Diabetes Mellitus. Blood Urea Nitrogen 21(H) 10 - 20 mg/dL 06/15/2024 2:38 AM [facility] Creatinine 1.27 0.80 - 1.50 mg/dL 06/15/2024 2:38 AM [facility] Sodium 140 135 - 145 mMol/L [...] CHEMISTRY ORDERABLES [facility] [place] [address] * (ABNORMAL) CBC (with Diff) (06/15/2024 1:48 [...] - 6.10 x10(3)/mc L 06/15/2024 2:13 AM [facility] Lymph % 8.0 % 06/15/2024 2:13 AM [facility] Lymph Absolute 0.94 0.90 - 3.20 x10(3)/mc L 06/15/2024 2:13 AM EST [facility] Monocyte % 11.4 % 06/15/2024 2:13 AM [facility] Monocyte Absolute 1.33(H) 0.30 - 0.90 x10(3)/mc L 06/15/2024 2:13 AM [facility] Eos % 0.2 % 06/15/2024 2:13 AM [facility] Eos Absolute <0.04 0.00 - 0.40 x10(3)/mc L 06/15/2024 2:13 AM [facility] Basophil % 0.2 % 06/15/2024 2:13 AM [facility] Baso Absolute <0.04 0.00 - 0.10 x10(3)/mc L 06/15/2024 2:13 AM EST [facility] Immature Gran % 0.5 % 2:13 AM [facility] Immature Gran Absolute 0.06(H) 0.00 - 0.04 x10(3)/mc L 06/15/2024 2:13 AM EST [facility] Blood VENOUS BLOOD SPECIMEN / Unknown Venipuncture / Unknown 06/15/2024 1:48 AM EST 06/15/2024 1:52 AM EST Bobby Loja MD HEMATOLOGY ORDERABLE S [facility] [place] [address] * (ABNORMAL) Troponin - Single (06/15/2024 1:48 [...] [facility] Test Catalog Troponin - [email or web address] Reference: Fourth Mcnabb Definition of Myocardial Infarction. Journal of the [place] College of Cardiology 2018;72:5569-8982 Blood VENOUS BLOOD SPECIMEN / Unknown Venipuncture / Unknown 06/15/2024 1:48 AM EST 06/15/2024 1:52 AM EST Bobby Loja MD CHEMISTRY ORDERABLES [facility] [place] [address] * (ABNORMAL) Blood Gas, Arterial POC (06/15/2024 1:46 AM EST) pH, Arterial 7.33(L) 7.35 - 7.45 06/15/2024 1:47 AM EST [facility] PCO2, Arterial 40 35 - 45 mmHg 06/15/2024 1:47 AM [facility] PO2, Arterial 131(H) 85 - 104 [...] CARE TEST O RDERAPIETER Performing Organization Address [facility] Co de Phone Number [facility] [place] [address] * POC, GLUCOSE (06/15/2024 1:05 AM EST) Glucometer, POC 116 65 - 199 mg/dL 06/15/2024 1:05 AM EST [facility] Comment:Supplemental ranges: <140 mg/dL before meals <180 mg/dL all other times of the day. Blood CAPILLARY BLOOD / Unknown 06/15/2024 1:05 AM EST 06/15/2024 1:05 AM EST Bobby Loja MD POINT OF CARE TEST O RDERAPIETER Performing Organization Address [facility] Co de Phone Number [facility] [place] [address] * POC, GLUCOSE (06/15/2024 12:16 AM EST) [...] O RDERAPIETER [facility] [place] [address] * Potassium (06/14/2024 11:28 PM EST) Potassium 4.1 3.5 - 5.0 mMol/L 06/14/2024 11:54 PM EST [facility] Blood VENOUS BLOOD SPECIMEN / Unknown Venipuncture / Unknown 06/14/2024 11:28 PM EST 06/14/2024 11:34 PM EST Bobby Loja MD CHEMISTRY ORDERABLES Performing Organization Address [facility] Co de Phone Number [facility] [place] [address] * POC, GLUCOSE (06/14/2024 10:58 PM EST) [...] CARE TEST O RDERABLES Performing Organization Address [facility] Co de Phone Number [facility] [place] [address] * POC, GLUCOSE (06/14/2024 9:55 PM EST) [...] TEST O RDERABLES Performing Organization Address City/State/[facility] Co de Phone Number [facility] [place] [address] * POC, GLUCOSE (06/14/2024 8:54 PM EST) Glucometer, POC 151 65 - 199 mg/dL 06/14/2024 8:54 PM EST [facility] Comment:Supplemental ranges: <140 mg/dL before meals <180 mg/dL all other times of the day. Blood CAPILLARY BLOOD / Unknown 06/14/2024 8:54 PM EST 06/14/2024 8:54 PM EST Bobby Loja MD POINT OF CARE TEST O NIKA Performing Organization Address [facility] Co de Phone Number [facility] [place] [address] * POC, GLUCOSE (06/14/2024 7:51 PM EST) Glucometer, POC 169 65 - 199 mg/dL 06/14/2024 7:52 PM EST [facility] Comment:Supplemental ranges: <140 mg/dL before meals <180 mg/dL all other times of the day. Blood CAPILLARY BLOOD / Unknown 06/14/2024 7:51 PM EST 06/14/2024 7:52 PM EST Bobby Loja MD POINT OF CARE TEST O RDBECKIE Performing Organization Address City/[facility] Co de Phone Number [facility] [place] [address] * POC, GLUCOSE (06/14/2024 6:49 PM EST) [...] Address City/[facility]/ZIP Co de Phone Number [facility] [place] [address] * (ABNORMAL) Hemoglobin (06/14/2024 6:19 PM EST) Hemoglobin 13.1(L) 13.7 - 16.5 g/dL 06/14/2024 7:08 PM EST [facility] Blood VENOUS BLOOD SPECIMEN / Unknown Venipuncture / Unknown 06/14/2024 6:19 PM EST 06/14/2024 6:28 PM EST Bobby Loja MD HEMATOLOGY ORDERABLE S Performing Organization Address [facility] Co de Phone Number [facility] [place] [address] * Potassium (06/14/2024 6:19 PM EST) Potassium 3.9 3.5 - 5.0 mMol/L 06/14/2024 6:52 PM EST [facility] Blood VENOUS BLOOD SPECIMEN / Unknown Venipuncture / Unknown 06/14/2024 6:19 PM EST 06/14/2024 6:28 PM EST Bobby Loja MD CHEMISTRY ORDERABLES Performing Organization Address City/[facility]/ZIP Co de Phone Number [facility] [place] [address] * (ABNORMAL) POC, GLUCOSE (06/14/2024 6:03 PM [...] O RDERABLES [facility] [place] [address] * (ABNORMAL) Blood Gas, Arterial POC (06/14/2024 [...] 0.5 - 2.2 mmol/L 06/14/2024 4:52 PM [facility] Fraction of Inspired Oxygen 40 % 06/14/2024 4:52 PM [facility] PF Ratio 213 Ratio 06/14/2024 4:52 PM [facility] Comment:PF ratio calculated using the non-temperature corrected pO2 result. IONIZED CALCIUM, ARTERIAL 1.16 1.15 - 1.33 mmol/L 06/14/2024 4:52 PM [facility] Glucose, Arterial 192 65 - 199 mg/dL 06/14/2024 4:52 PM [facility] Comment:Glucose Concentratio n >=200 mg/dL plus symptoms is consistent with Diabetes Mellitus. Blood ARTERIAL BLOOD / Unknown 06/14/2024 4:51 PM EST 06/14/2024 4:52 PM EST Bobby Loja MD POINT [place] [address] * POC, GLUCOSE (06/14/2024 4:00 PM EST) [...] O RALPHERAPIETER [facility] [place] [address] * XR Chest One View (06/14/2024 3:05 PM EST) WORKSTATION ID [id number] RAD Anatomical Region Laterality Modality Chest N/A [...] who have questions please contact the health home care provider that requested your imaging first. ? Electronically signed by: Stuart Aponte MD, [facility] ??([phone]), at 06/14/2024 4:07 PM Narrative 06/14/2024 4:07 [...] patients who have questions please contactthe health home care provider that requested your imaging first. Bobby Loja MD IMG DX ORDERABLES * (ABNORMAL) Blood Gas, Arterial POC (06/14/2024 2:52 PM EST) pH, Arterial 7.28(LLL) 7.35 - 7.45 06/14/2024 2:53 PM [facility] PCO2, Arterial 50(H) 35 - 45 [...] O RDERABLES [facility] [place] [address] * EKG 12 Lead (06/14/2024 2:46 PM EST) Ventricular rate 80 BPM MUSE SYSTEM Atrial Rate 80 BPM MUSE SYSTEM P-R Interval 120 ms MUSE SYSTEM QRS Duration 108 ms MUSE SYSTEM Q-T Interval 454 ms MUSE SYSTEM QTC Calculated (Bezet) 523 ms MUSE SYSTEM Calculated P [place] 70 degrees MUSE SYSTEM Calculated R [place] 56 degrees MUSE SYSTEM Calculated T [place] 50 degrees MUSE SYSTEM INTERPRETATION AV dual-paced rhythm Abnormal ECG When compared with ECG of 03-JUN-2024 01:45, Vent. rate has increased BY ??17 BPM Confirmed by MD Marisol, Shaheen ([id number]) on 06/15/2024 1:57:23 PM MUSE SYSTEM 06/14/2024 2:46 PM EST 06/15/2024 1:57 PM EST Bobby Loja MD ECG ORDERABLES MUSE SYSTEM * Prepare RBC (06/14/2024 2:27 PM EST) Status Information Returned [facility] Product Identification RBC [facility] Unit [facility] [id number] [facility] Product Code [id number] [facility] Unit Blood Type OPOS [facility] Specimen Expiration Date [facility] Volulme 350 [facility] Issue Date / Time [facility] Status Information Returned [facility] Product Identification RBC [facility] Unit Number [id number] [facility] Product [facility] [id number] [facility] Unit Blood Type OPOS [facility] Specimen Expiration Date [facility] Volulme 350 [facility] Issue Date / Time [facility] Blood 06/14/2024 6:2 5 AM EST Haja Byrnes MD BLOOD BANK PRODUCT O RDERABLES [facility] [place] [address] * (ABNORMAL) Cooximetry, POC (06/14/2024 1:52 PM [...] O RDERABLES [facility] [place] [address] * (ABNORMAL) Blood Gas, Arterial POC (06/14/2024 12:47 PM EST) pH, Arterial 7.33(L) 7.35 - 7.45 06/14/2024 12:48 PM EST [facility] PCO2, Arterial 46(H) 35 - 45 mmHg 06/14/2024 12:48 PM [facility] PO2, Arterial 358(H) 85 - 104 [...] Address City/[facility]/ZIP Co de Phone Number [facility] [place] [address] * (ABNORMAL) Cooximetry, POC (06/14/2024 12:42 PM [...] Address City/[facility]/ZIP Co de Phone Number [facility] [place] [address] * (ABNORMAL) Platelet count (06/14/2024 12:30 PM EST) Platelet 73(L) 145 - 357 x10(3)/mcL 06/14/2024 12:54 PM EST [facility] Blood ARTERIAL BLOOD / Unknown 06/14/2024 12:30 PM EST Comment:Pre-op diagnosis: CAD Bobby Loja MD HEMATOLOGY ORDERABLE S Performing Organization Address [facility]/State/ZIP Co de Phone Number [facility] [place] [address] * (ABNORMAL) Hemoglobin and Hematocrit, blood (06/14/2024 [...] MD HEMATOLOGY ORDERABLE S Performing Organization Address [facility] Co de Phone Number [facility] [place] [address] * APTT (06/14/2024 12:30 PM EST) Partial [...] ORDERABLE S [facility] [place] [address] * (ABNORMAL) Prothrombin Time (06/14/2024 12:30 PM [...] MD HEMATOLOGY ORDERABLE S Performing Organization Address [facility] Co de Phone Number [facility] [place] [address] * Fibrinogen (06/14/2024 12:30 PM EST) [facility] Fibrinogen 211 200 - 393 mg/dL 06/14/2024 12:57 PM EST [facility] Comment: A fibrinogen level >100 mg/dL is adequate for hemostasis in most patients without underlying bleeding disorders. Blood ARTERIAL BLOOD / Unknown 06/14/2024 12:30 PM EST 06/14/2024 12:42 PM EST Comment:Pre-op diagnosis: CAD Bobby Loja MD HEMATOLOGY ORDERABLE S [facility] [place] [address] * (ABNORMAL) Blood Gas, Arterial POC (06/14/2024 12:15 PM EST) pH, Arterial 7.38 7.35 - 7.45 06/14/2024 12:16 PM [facility] PCO2, Arterial 40 35 - 45 [...] O RDERABLES [facility] [place] [address] * (ABNORMAL) Blood Gas, Arterial POC (06/14/2024 [...] O RDERABLES [facility] [place] [address] * (ABNORMAL) Blood Gas, Arterial POC (06/14/2024 [...] O RDERABLES [facility] [place] [address] * (ABNORMAL) Scan, Peripheral Blood (06/14/2024 11:23 AM EST) RBC Morphology Abnormal 06/14/2024 11:59 AM EST [facility] Platelet Estimate Decreased(A) Normal 06/14/2024 11:59 AM EST [facility] [place] cells 1-5 /HPF 06/14/2024 11:59 AM EST [facility] Blood ARTERIAL BLOOD / Unknown 06/14/2024 11:23 AM EST 06/14/2024 11:27 AM EST Bobby Loja MD HEMATOLOGY ORDERABLE S Performing Organization Address [facility]/ZIP Co de Phone Number [facility] [place] [address] * (ABNORMAL) Platelet count (06/14/2024 11:23 AM EST) Platelet 86(L) 145 - 357 x10(3)/mcL 06/14/2024 11:59 AM EST [facility] Blood ARTERIAL BLOOD / Unknown 06/14/2024 11:23 AM EST Comment:Pre-op diagnosis: CAD Bobby Loja MD HEMATOLOGY ORDERABLE S [facility] [place] [address] * (ABNORMAL) Hemoglobin and Hematocrit, blood (06/14/2024 [...] ORDERABLE S [facility] [place] [address] * (ABNORMAL) Blood Gas, Arterial POC (06/14/2024 [...] O RDERABLES [facility] [place] [address] * (ABNORMAL) Blood Gas, Arterial POC (06/14/2024 [...] O RDERABLES [facility] [place] [address] * (ABNORMAL) Blood Gas, Arterial POC (06/14/2024 [...] O RDERABLES [facility] [place] [address] * Surgical Pathology (06/14/2024 9:53 AM EST) Case Report Surgical Pathology Report ? Case: [id number] ? Authorizing Provider: ??Bobby Loja MD ? [...] Inking: External surface inked black Sections/Process ing: Band Lining Bander sections in 4 cassettes labeled A1-A4. cmk B. Heart, Atrial Appendage, Left, . B - Labeled/Fixative : Heart, atrial appendage, left, fresh. Quantity/Size: Single, 3.3 x 1.5 x 0.8 cm. Tissue Description: Portion of heart tissue consisting of rodriguez-white, semitranslucent, smooth endocardium with rodriguez-brown muscular myocardium and thin translucent epicardium with adherent adipose tissue. No areas of discoloration identified. Sections/Process ing: Band Lining Bander sections in 1 cassette labeled B1. cmk [...] O RDERABLES [facility] [place] [address] * Cooximetry, POC (06/14/2024 9:00 AM EST) [...] O RDERABLES [facility] [place] [address] * (ABNORMAL) Blood Gas, Arterial POC (06/14/2024 [...] Arterial 0.3 <=1.5 % 06/14/2024 8:40 AM [facility] Sodium, Arterial 136 135 - 145 mmol/L 06/14/2024 8:40 AM [facility] Potassium, Arterial 4.2 3.5 - 5.0 mmol/L 06/14/2024 8:40 AM [facility] Chloride, Arterial 102 98 - 107 mmol/L 06/14/2024 8:40 AM [facility] Lactate, [...] RDERABLES [facility] [place] [address] * Transesophageal Echo/OR (06/14/2024 7:20 AM EST) Anatomical Region Laterality Modality Cardiac Other 06/14/2024 7:20 AM EST Narrative 06/14/2024 4:36 PM EST Version: 2 Study ID: [id number] [address] [place] [address] ?OR Transesophageal Echo Report Name: GEORGE MEHTA [...] the left atrial appendage. THere is no MARIALUSIA thrombus and good velocity therein. This surgeon was made aware of this mass after consultation with other store stock help experts and the decision was made by [...] MD - 11/11/2024 Version: 2 Study ID: [id number] [address] [place] [id number] ORTransesophageal Echo Report Name: GEORGE MEHTA Study [...] of this mass after consultation with other store stock help experts and thedecision was made by surgeon [...] O RDERABLES [facility] [place] [address] * POC, GLUCOSE (06/14/2024 4:30 AM EST) Glucometer, POC 85 65 - 199 mg/dL 06/14/2024 4:30 AM EST [facility] Comment:Supplemental ranges: <140 mg/dL before meals <180 mg/dL all other times of the day. Blood CAPILLARY BLOOD / Unknown 06/14/2024 4:30 AM EST 06/14/2024 4:30 AM EST Haja Byrnes MD POINT OF CARE TEST O RDERABLES Performing Organization Address [facility]ZIP Co de Phone Number [facility] [place] [address] * (ABNORMAL) Heparin (unfractionated) Level (06/14/2024 12:12 [...] Address City/[facility]/ZIP Co de Phone Number [facility] [place] [address] * (ABNORMAL) CBC (with Diff) (06/14/2024 12:12 AM [facility]) [facility] Signature White Blood Cell 10.51(H) 4.00 [...] - 6.10 x10(3)/mc L 06/14/2024 12:38 AM [facility] Lymph % 26.8 % 06/14/2024 12:38 [...] ORDERABLE S [facility] [place] [address] * Magnesium (06/14/2024 12:12 AM EST) Magnesium 0.74 0.69 - 1.07 mMol/L 06/14/2024 12:57 AM EST [facility] Blood VENOUS BLOOD SPECIMEN / Unknown Venipuncture / Unknown 06/14/2024 12:12 AM EST 06/14/2024 12:29 AM EST Shahnaz Scanlon MD CHEMISTRY ORDERABLES [facility] [place] [address] * (ABNORMAL) Basic Metabolic Panel (06/14/2024 12:12 [...] 75 m?? 06/14/2024 12:57 AM EST [facility] LABORATORY Comment: This patient's estimated [...] Scanlon MD CHEMISTRY ORDERABLES Performing Organization Address [facility] Co de Phone Number [facility] [place] [address] * Scan Doc: Implantable Devices (06/14/2024 12:00 [...] CARE TEST O RDERABLES Performing Organization Address [facility]/ZIP Co de Phone Number [facility] [place] [address] * (ABNORMAL) POC, GLUCOSE (06/13/2024 8:03 PM EST) Glucometer, POC 206(H) 65 - 199 mg/dL 06/13/2024 8:03 PM EST [facility] Comment:Supplemental ranges: <140 mg/dL before meals <180 mg/dL all other times of the day. Blood CAPILLARY BLOOD / Unknown 06/13/2024 8:03 PM EST 06/13/2024 8:03 PM EST Haja Byrnes MD POINT OF CARE TEST O RDERABLES Performing Organization Address [facility] Co de Phone Number [facility] [place] [address] * Heparin (unfractionated) Level (06/13/2024 4:11 PM [...] MD HEMATOLOGY ORDERABLE S Performing Organization Address [facility] Co de Phone Number [facility] [place] [address] * ABORH RECHECK (06/13/2024 4:11 PM EST) Pathologist [facility] ABORH Recheck O POSITIVE 06/13/2024 4:50 PM EST [facility] Blood VENOUS BLOOD SPECIMEN / Unknown Venipuncture / Unknown 06/13/2024 4:11 PM EST 06/13/2024 4:19 PM EST Haja Byrnes MD BLOOD BANK LAB ORDER EUSEBIA [facility] [place] [address] * (ABNORMAL) POC, GLUCOSE (06/13/2024 4:09 PM EST) [facility] Glucometer, POC 216(H) 65 - 199 mg/dL 06/13/2024 4:10 PM EST [facility] Comment:Supplemental ranges: <140 mg/dL before meals <180 mg/dL all other times of the day. Blood CAPILLARY BLOOD / Unknown 06/13/2024 4:09 PM EST 06/13/2024 4:10 PM EST Haja Byrnes MD POINT OF CARE TEST O RDERABLES Performing Organization Address City/[facility]/ZIP Co de Phone Number [facility] [place] [address] * Type and screen ([facility]/CGP/RAFITA) (06/13/2024 11:53 AM EST) Pathologist [facility] ABORH Type O POSITIVE 06/13/2024 1:16 PM EST [facility] PATIENT HISTORY Not Found 06/13/2024 1:16 PM EST [facility] Expires at [id number] on: 06/16/2024 06/13/2024 1:16 PM EST [facility] ANTIBODY SCREEN AUTOMATED Negative 06/13/2024 1:16 PM EST [facility] T&S only valid at [facility] 06/13/2024 1:16 PM EST [facility] Blood VENOUS BLOOD SPECIMEN / Unknown Venipuncture / Unknown 06/13/2024 11:53 AM EST 06/13/2024 11:56 AM EST Narrative [facility] - 06/13/2024 1:16 PM EST This Type and Screen result is only valid at the [facility] Haja Byrnes MD BLOOD BANK LAB ORDER EUSEBIA Performing Organization Address [facility] Co de Phone Number [facility] [place] [place] [address] * POC, GLUCOSE (06/13/2024 11:50 AM EST) Glucometer, POC 178 65 - 199 mg/dL 06/13/2024 11:51 AM EST [facility] Comment:Supplemental ranges: <140 mg/dL before meals <180 mg/dL all other times of the day. Blood CAPILLARY BLOOD / Unknown 06/13/2024 11:50 AM EST 06/13/2024 11:51 AM EST Haja Byrnes MD POINT OF CARE TEST O RDERABLES Performing Organization Address [facility] Co de Phone Number [facility] [place] [address] * XR Chest One View (06/13/2024 10:35 AM EST) WORKSTATION ID [id number] [facility] Anatomical Region Laterality Modality Chest N/A [...] who have questions please contact the health home care provider that requested your imaging first. ? Narrative [...] patients who have questions please contactthe health home care provider that requested your imaging first. Haja Santiago Fitz GARCIA IMG DX ORDERABLES * CARDIAC CATHETERIZATION (06/13/2024 9:02 AM EST) Anatomical Region Laterality Modality Other Narrative 06/15/2024 9:07 AM EST ?[facility] ? Cardiac Catheterization/Intervention Report ? Patient Name: Tyson, George L. ? Procedure Date: 06/13/2024 ? A #: [id number] ? Primary Physician: Nuha Shen I ? Case #: [id number] ? File Name: [id number] ? Catheterization Order Number: [id number] ? [facility] ? Final Report [place], [place] ? Patient Name: ? George L. Tyson ? ID#: ?[id number] ? : ?1955 ? Procedure Date: ? June 13, 2024 ?Case #: ? [id number] ? Room: ? 6 ? Case Physician: [...] designated as ASA Class IV. The [facility] clinical frailty scale is 5: ?Mildly [...] procedure was Urgent. The indication for ?the starch factory laborer visit is ACS greater than 24 [...] angiography, vascular ?ultrasound and IABP insertion in starch factory laborer. ? Nuha Shen M.D. ? Electronically Signed by: Nuha Shen M.D. ? Report Finalized: 06/15/2024 ??08:59 ? Procedure Note Nuha Shen MD - 06/15/2024 [facility] Cardiac Catheterization/Intervention Report Patient Name: George Mehta Procedure Date: 06/13/2024 A #: [id number] Primary Physician: Nuha Shen I Case #: [id number] File Name: [id number] Catheterization Order Number: [id number] [facility] FinalReport [place], [place] Patient Name: George Mehta ID#:[id number] :1955 Procedure Date: June 13, 2024 Case [...] designated as ASA Class IV. The [facility] clinical frailty scale is5: Mildly Frail. [...] diagnostic procedure was Urgent. The indicationfor the starch factory laborer visit is ACS greater than 24 [...] site angiography,vascular ultrasound and IABP insertion in starch factory laborer. Nuha Shen M.D. Electronically Signed by: [...] Scanlon MD CHEMISTRY ORDERABLES Performing Organization Address City/State/[facility] de Phone Number [facility] [place] [address] * POC, GLUCOSE (06/13/2024 7:41 AM EST) Glucometer, POC 126 65 - 199 mg/dL 06/13/2024 7:41 AM EST [facility] Comment:Supplemental ranges: <140 mg/dL before meals <180 mg/dL all other times of the day. Blood CAPILLARY BLOOD / Unknown 06/13/2024 7:41 AM EST 06/13/2024 7:41 AM EST Ethel Carrillo MD POINT OF CARE TEST O NIKA Performing Organization Address [facility] Phone Number [facility] [place] [address] * POC, GLUCOSE (06/13/2024 3:25 AM EST) [facility] Glucometer, POC 99 65 - 199 mg/dL 06/13/2024 3:25 AM EST [facility] Comment:Supplemental ranges: <140 mg/dL before meals <180 mg/dL all other times of the day. Blood CAPILLARY BLOOD / Unknown 06/13/2024 3:25 AM EST 06/13/2024 3:25 AM EST Ethel Carrillo MD POINT OF CARE TEST Abimael MAHER Performing Organization Address [facility] Phone Number [facility] [place] [address] * Heparin (unfractionated) Level (06/13/2024 2:26 AM EST) [facility] UF Heparin 0.60 IU/mL 06/13/2024 3:32 AM [...] HEMATOLOGY ORDERABLE S Performing Organization Address City/State/[facility] Co de Phone Number [facility] [place] [phone] * (ABNORMAL) CBC (with Diff) (06/13/2024 2:26 [...] 32.0 - 35.7 g/dL 06/13/2024 2:41 AM [facility] Platelet [...] Address City/[facility]/ZIP Co de Phone Number [facility] [place] [address] * Magnesium (06/13/2024 2:26 AM EST) Magnesium 0.78 0.69 - 1.07 mMol/L 06/13/2024 2:58 AM [facility] Blood VENOUS BLOOD SPECIMEN / Unknown Venipuncture / Unknown 06/13/2024 2:26 AM EST 06/13/2024 2:31 AM EST Shahnaz Scanlon MD CHEMISTRY ORDERABLES [facility] [place] [address] * (ABNORMAL) Basic Metabolic Panel (06/13/2024 2:26 AM EST) Glucose 121 65 - 199 mg/dL 06/13/2024 2:58 AM [facility] Comment:Glucose [...] CHEMISTRY ORDERABLES [facility] [place] [address] * POC, GLUCOSE (06/12/2024 11:53 PM EST) Glucometer, POC 141 65 - 199 mg/dL 06/12/2024 11:54 PM EST [facility] Comment:Supplemental ranges: <140 mg/dL before meals <180 mg/dL all other times of the day. Blood CAPILLARY BLOOD / Unknown 06/12/2024 11:53 PM EST 06/12/2024 11:54 PM EST Ethel Carrillo MD POINT OF CARE TEST O NIKA Performing Organization Address City/[facility] Co de Phone Number [facility] [place] [address] * POC, GLUCOSE (06/12/2024 7:32 PM EST) Glucometer, POC 158 65 - 199 mg/dL 06/12/2024 7:32 PM EST [facility] Comment:Supplemental ranges: <140 mg/dL before meals <180 mg/dL all other times of the day. Blood CAPILLARY BLOOD / Unknown 06/12/2024 7:32 PM EST 06/12/2024 7:32 PM EST Ethel Carrillo MD POINT OF CARE TEST O NIKA Performing Organization Address [facility] Co de Phone Number [facility] [place] [address] * POC, GLUCOSE (06/12/2024 3:41 PM EST) Glucometer, POC 113 65 - 199 mg/dL 06/12/2024 3:41 PM EST [facility] Comment:Supplemental ranges: <140 mg/dL before meals <180 mg/dL all other times of the day. Blood CAPILLARY BLOOD / Unknown 06/12/2024 3:41 PM EST 06/12/2024 3:41 PM EST Ethel Carrillo MD POINT OF CARE TEST O NIKA Performing Organization Address City/[facility]/ZIP Co de Phone Number [facility] [place] [address] * Potassium (06/12/2024 2:19 PM EST) Potassium 4.5 3.5 - 5.0 mMol/L 06/12/2024 2:45 PM EST [facility] Blood VENOUS BLOOD SPECIMEN / Unknown Venipuncture / Unknown 06/12/2024 2:19 PM EST 06/12/2024 2:23 PM EST Shahnaz Scanlno MD CHEMISTRY ORDERABLES [facility] [place] [address] * (ABNORMAL) POC, GLUCOSE (06/12/2024 11:21 AM [...] O NIKA [facility] [place] [address] * POC, GLUCOSE (06/12/2024 8:00 AM EST) [...] O NIKA [facility] [place] [address] * POC, GLUCOSE (06/12/2024 4:25 AM EST) Glucometer, POC 132 65 - 199 mg/dL 06/12/2024 4:26 AM EST [facility] Comment:Supplemental ranges: <140 mg/dL before meals <180 mg/dL all other times of the day. Blood CAPILLARY BLOOD / Unknown 06/12/2024 4:25 AM EST 06/12/2024 4:26 AM EST Ethel Carrillo MD POINT OF CARE TEST O RDERABLES Performing Organization Address [facility] Co de Phone Number [facility] [place] [address] * Heparin (unfractionated) Level (06/12/2024 3:03 AM [...] ORDERABLE S [facility] [place] [address] * (ABNORMAL) CBC (with Diff) (06/12/2024 3:03 [...] ORDERABLE S [facility] [place] [address] * Magnesium (06/12/2024 3:03 AM EST) Pathologist [facility] Magnesium 0.79 0.69 - 1.07 mMol/L 06/12/2024 4:01 AM [facility] Blood VENOUS BLOOD SPECIMEN / Unknown Venipuncture / Unknown 06/12/2024 3:03 AM EST 06/12/2024 3:30 AM EST Shahnaz Scanlon MD CHEMISTRY ORDERABLES [facility] [place] [address] * (ABNORMAL) Basic Metabolic Panel (06/12/2024 3:03 [...] Scanlon MD CHEMISTRY ORDERABLES Performing Organization Address City/[facility]/ZIP Co de Phone Number [facility] [place] [address] * POC, GLUCOSE (06/11/2024 11:56 PM EST) [...] Address City/[facility]/ZIP Co de Phone Number [facility] [place] [address] * (ABNORMAL) POC, GLUCOSE (06/11/2024 8:25 PM EST) Glucometer, POC 210(H) 65 - 199 mg/dL 06/11/2024 8:26 PM EST [facility] Comment:Supplemental ranges: <140 mg/dL before meals <180 mg/dL all other times of the day. Blood CAPILLARY BLOOD / Unknown 06/11/2024 8:25 PM EST 06/11/2024 8:26 PM EST Ethel Carrillo MD POINT OF CARE TEST O RDBECKIE Performing Organization Address [facility] Co de Phone Number [facility] [place] [address] * POC, GLUCOSE (06/11/2024 4:24 PM EST) Glucometer, POC 81 65 - 199 mg/dL 06/11/2024 4:24 PM EST [facility] Comment:Supplemental ranges: <140 mg/dL before meals <180 mg/dL all other times of the day. Blood CAPILLARY BLOOD / Unknown 06/11/2024 4:24 PM EST 06/11/2024 4:25 PM EST Ethel Carrillo MD POINT OF CARE TEST O NIKA Performing Organization Address [facility] Co de Phone Number [facility] [place] [address] * (ABNORMAL) POC, GLUCOSE (06/11/2024 11:08 AM EST) Glucometer, POC 233(H) 65 - 199 mg/dL 06/11/2024 11:08 AM EST [facility] Comment:Supplemental ranges: <140 mg/dL before meals <180 mg/dL all other times of the day. Blood CAPILLARY BLOOD / Unknown 06/11/2024 11:08 AM EST 06/11/2024 11:08 AM EST Ethel Carrillo MD POINT OF CARE TEST O NIKA Performing Organization Address City/[facility] Co de Phone Number [facility] [place] [address] * POC, GLUCOSE (06/11/2024 7:48 AM EST) Glucometer, POC 184 65 - 199 mg/dL 06/11/2024 7:49 AM EST [facility] Comment:Supplemental ranges: <140 mg/dL before meals <180 mg/dL all other times of the day. Blood CAPILLARY BLOOD / Unknown 06/11/2024 7:48 AM EST 06/11/2024 7:49 AM EST Melida Valdes MD POINT OF CARE TEST O RDERABLES Performing Organization Address [facility] de Phone Number [facility] [place] [address] * Heparin (unfractionated) Level (06/11/2024 5:31 AM [...] MD HEMATOLOGY ORDERABLE S Performing Organization Address [facility] Co de Phone Number [facility] [place] [address] * POC, GLUCOSE (06/11/2024 3:57 AM EST) [facility] Glucometer, POC 132 65 - 199 mg/dL 06/11/2024 3:58 AM [facility] Comment:Supplemental ranges: <140 mg/dL before meals <180 mg/dL all other times of the day. Blood CAPILLARY BLOOD / Unknown 06/11/2024 3:57 AM EST 06/11/2024 3:58 AM EST Melida Valdes MD POINT OF CARE TEST O RDERABLES [facility] [place] [address] * (ABNORMAL) CBC (with Diff) (06/11/2024 2:13 AM EST) [facility] White Blood Cell 9.91(H) 4.00 [...] Neutrophil % 50.3 % 06/11/2024 2:26 AM [facility] Neutrophil Absolute (ANC) - Automated 4.98 [...] - 0.04 x10(3)/mc L 06/11/2024 2:26 AM [facility] Blood VENOUS BLOOD SPECIMEN / Unknown Venipuncture / Unknown 06/11/2024 2:13 AM EST 06/11/2024 2:19 AM EST Shahnaz Scanlon MD HEMATOLOGY ORDERABLE S Performing Organization Address [facility]/ZIP Co de Phone Number [facility] [place] [address] * Magnesium (06/11/2024 2:13 AM EST) Magnesium 0.83 0.69 - 1.07 mMol/L 06/11/2024 2:51 AM [facility] Blood VENOUS BLOOD SPECIMEN / Unknown Venipuncture / Unknown 06/11/2024 2:13 AM EST 06/11/2024 2:19 AM EST Shahnaz Scanlon MD CHEMISTRY ORDERABLES Performing Organization Address [facility] Co de Phone Number [facility] [place] [address] * (ABNORMAL) Basic Metabolic Panel (06/11/2024 2:13 AM EST) Glucose 148 65 - 199 mg/dL 06/11/2024 2:51 AM [facility] Comment:Glucose Concentratio n >=200 mg/dL plus symptoms is consistent with Diabetes Mellitus. Blood Urea Nitrogen 24(H) 10 - 20 mg/dL 06/11/2024 2:51 AM [facility] Creatinine 1.06 0.80 - 1.50 mg/dL 06/11/2024 2:51 AM [facility] Sodium 134(L) 135 - 145 mMol/L 06/11/2024 2:51 AM [facility] Potassium 4.1 3.5 - 5.0 mMol/L 06/11/2024 2:51 AM [facility] Chloride 96(L) 98 - 107 mMol/L 06/11/2024 2:51 AM [facility] Carbon [...] CHEMISTRY ORDERABLES [facility] [place] [address] * POC, GLUCOSE (06/11/2024 12:50 AM EST) [facility] Signature Glucometer, POC 144 65 - 199 mg/dL 06/11/2024 12:51 AM EST [facility] Comment:Supplemental ranges: <140 mg/dL before meals <180 mg/dL all other times of the day. Blood CAPILLARY BLOOD / Unknown 06/11/2024 12:50 AM EST 06/11/2024 12:51 AM EST Melida Valdes MD POINT OF CARE TEST O NIKA Performing Organization Address City/[facility] Co de Phone Number [facility] [place] [address] * (ABNORMAL) POC, GLUCOSE (06/10/2024 7:22 PM EST) Glucometer, POC 236(H) 65 - 199 mg/dL 06/10/2024 7:22 PM EST [facility] Comment:Supplemental ranges: <140 mg/dL before meals <180 mg/dL all other times of the day. Blood CAPILLARY BLOOD / Unknown 06/10/2024 7:22 PM EST 06/10/2024 7:22 PM EST Melida Valdes MD POINT OF CARE TEST O NIKA Performing Organization Address [facility] Co de Phone Number [facility] [place] [address] * (ABNORMAL) Blood Gas, Venous (06/10/2024 5:42 PM EST) pH, Venous 7.34 7.32 - 7.42 06/10/2024 5:50 PM [facility] PCO2, Venous 52 38 - 58 [...] CHEMISTRY ORDERABLES [facility] [place] [address] * POC, GLUCOSE (06/10/2024 5:35 PM EST) [facility] Signature Glucometer, POC 123 65 - 199 mg/dL 06/10/2024 5:35 PM EST [facility] Comment:Supplemental ranges: <140 mg/dL before meals <180 mg/dL all other times of the day. Blood CAPILLARY BLOOD / Unknown 06/10/2024 5:35 PM EST 06/10/2024 5:35 PM EST Melida Valdes MD POINT OF CARE TEST O NIKA Performing Organization Address [facility] Co de Phone Number [facility] [place] [address] * (ABNORMAL) POC, GLUCOSE (06/10/2024 11:25 AM EST) Glucometer, POC 216(H) 65 - 199 mg/dL 06/10/2024 11:25 AM EST [facility] Comment:Supplemental ranges: <140 mg/dL before meals <180 mg/dL all other times of the day. Blood CAPILLARY BLOOD / Unknown 06/10/2024 11:25 AM EST 06/10/2024 11:25 AM EST Melida Valdes MD POINT OF CARE TEST O NIKA Performing Organization Address [facility] de Phone Number [facility] [place] [address] * (ABNORMAL) POC, GLUCOSE (06/10/2024 7:46 AM EST) Glucometer, POC 206(H) 65 - 199 mg/dL 06/10/2024 7:46 AM EST [facility] Comment:Supplemental ranges: <140 mg/dL before meals <180 mg/dL all other times of the day. Blood CAPILLARY BLOOD / Unknown 06/10/2024 7:46 AM EST 06/10/2024 7:46 AM EST Melida Valdes MD POINT OF CARE TEST O NIKA Performing Organization Address [facility] Co de Phone Number [facility] [place] [address] * POC, GLUCOSE (06/10/2024 4:23 AM EST) [...] O RDERABLES [facility] [place] [address] * (ABNORMAL) CBC (with Diff) (06/10/2024 1:55 AM EST) [facility] White Blood Cell 9.00 4.00 - 9.50 [...] - 0.04 x10(3)/mc L 06/10/2024 2:14 AM [facility] Blood VENOUS BLOOD SPECIMEN / Unknown Venipuncture / Unknown 06/10/2024 1:55 AM EST 06/10/2024 2:05 AM EST Shahnaz Scanlon MD HEMATOLOGY ORDERABLE S Performing Organization Address [facility] Co de Phone Number [facility] [place] [address] * Magnesium (06/10/2024 1:55 AM EST) Magnesium 0.83 0.69 - 1.07 mMol/L 06/10/2024 2:37 AM [facility] Blood VENOUS BLOOD SPECIMEN / Unknown Venipuncture / Unknown 06/10/2024 1:55 AM EST 06/10/2024 2:05 AM EST Shahnaz Scanlon MD CHEMISTRY ORDERABLES Performing Organization Address [facility] Co de Phone Number [facility] [place] [address] * (ABNORMAL) Basic Metabolic Panel (06/10/2024 1:55 [...] CHEMISTRY ORDERABLES [facility] [place] [address] * Heparin (unfractionated) Level (06/10/2024 1:54 AM [...] MD HEMATOLOGY ORDERABLE S Performing Organization Address [facility] Co de Phone Number [facility] [place] [address] * POC, GLUCOSE (06/10/2024 12:05 AM EST) Glucometer, POC 125 65 - 199 mg/dL 06/10/2024 12:05 AM EST [facility] Comment:Supplemental ranges: <140 mg/dL before meals <180 mg/dL all other times of the day. Blood CAPILLARY BLOOD / Unknown 06/10/2024 12:05 AM EST 06/10/2024 12:05 AM EST Melida Valdes MD POINT OF CARE TEST O RDERABLES Performing Organization Address [facility] Co de Phone Number [facility] [place] [address] * POC, GLUCOSE (06/09/2024 8:36 PM EST) Glucometer, POC 197 65 - 199 mg/dL 06/09/2024 8:36 PM EST [facility] Comment:Supplemental ranges: <140 mg/dL before meals <180 mg/dL all other times of the day. Blood CAPILLARY BLOOD / Unknown 06/09/2024 8:36 PM EST 06/09/2024 8:36 PM EST Melida Valdes MD POINT OF CARE TEST O NIKA Performing Organization Address [facility] Co de Phone Number [facility] [place] [address] * POC, GLUCOSE (06/09/2024 5:27 PM EST) Glucometer, POC 174 65 - 199 mg/dL 06/09/2024 5:28 PM EST [facility] Comment:Supplemental ranges: <140 mg/dL before meals <180 mg/dL all other times of the day. Blood CAPILLARY BLOOD / Unknown 06/09/2024 5:27 PM EST 06/09/2024 5:28 PM EST Melida Valdes MD POINT OF CARE TEST O NIKA Performing Organization Address [facility] Phone Number [facility] [place] [address] * (ABNORMAL) POC, GLUCOSE (06/09/2024 11:52 AM EST) Glucometer, POC 211(H) 65 - 199 mg/dL 06/09/2024 11:52 AM EST [facility] Comment:Supplemental ranges: <140 mg/dL before meals <180 mg/dL all other times of the day. Blood CAPILLARY BLOOD / Unknown 06/09/2024 11:52 AM EST 06/09/2024 11:52 AM EST Melida Valdes MD POINT OF CARE TEST O NIKA Performing Organization Address [facility] Co de Phone Number [facility] [place] [address] * Potassium (06/09/2024 8:25 AM EST) Potassium 4.6 3.5 - 5.0 mMol/L 06/09/2024 10:09 AM EST [facility] Blood VENOUS BLOOD SPECIMEN / Unknown Venipuncture / Unknown 06/09/2024 8:25 AM EST 06/09/2024 8:42 AM EST Shahnaz Scanlon MD CHEMISTRY ORDERABLES Performing Organization Address [facility] Co de Phone Number [facility] [place] [address] * (ABNORMAL) POC, GLUCOSE (06/09/2024 8:10 AM EST) Glucometer, POC 209(H) 65 - 199 mg/dL 06/09/2024 8:10 AM EST [facility] Comment:Supplemental ranges: <140 mg/dL before meals <180 mg/dL all other times of the day. Blood CAPILLARY BLOOD / Unknown 06/09/2024 8:10 AM EST 06/09/2024 8:11 AM EST Melida Valdes MD POINT OF CARE TEST O NIKA Performing Organization Address [facility] Co de Phone Number [facility] [place] [address] * POC, GLUCOSE (06/09/2024 4:40 AM EST) Glucometer, POC 131 65 - 199 mg/dL 06/09/2024 4:40 AM EST [facility] Comment:Supplemental ranges: <140 mg/dL before meals <180 mg/dL all other times of the day. Blood CAPILLARY BLOOD / Unknown 06/09/2024 4:40 AM EST 06/09/2024 4:41 AM EST Melida Valdes MD POINT OF CARE TEST O NIKA Performing Organization Address [facility] Co de Phone Number [facility] [place] [address] * Heparin (unfractionated) Level (06/09/2024 2:12 AM EST) UF Heparin 0.55 IU/mL 06/09/2024 2:33 AM [facility] Comment: [...] ORDERABLE S [facility] [place] [id number] * (ABNORMAL) CBC (with Diff) (06/09/2024 2:12 AM EST) White Blood Cell 9.80(H) 4.00 - 9.50 x10(3)/mc L 06/09/2024 2:44 AM EST [facility] Red Blood Cell 5.18 4.58 - 5.54 x10(6)/mc L 06/09/2024 2:44 AM [facility] Hemoglobin 15.5 13.7 - 16.5 g/dL 06/09/2024 2:44 AM [facility] Hematocrit [...] ORDERABLE S [facility] [place] [address] * Magnesium (06/09/2024 2:12 AM EST) Magnesium 0.83 0.69 - 1.07 mMol/L 06/09/2024 2:52 AM EST [facility] Blood VENOUS BLOOD SPECIMEN / Unknown Venipuncture / Unknown 06/09/2024 2:12 AM EST 06/09/2024 2:22 AM EST Shahnaz Scanlon MD CHEMISTRY ORDERABLES [facility] [place] [address] * (ABNORMAL) Basic Metabolic Panel (06/09/2024 2:12 AM EST) Glucose 147 65 - 199 mg/dL 06/09/2024 2:52 AM EST [facility] Comment:Glucose Concentratio n >=200 mg/dL plus symptoms is consistent with Diabetes Mellitus. Blood Urea Nitrogen 24(H) 10 - 20 mg/dL 06/09/2024 2:52 AM [facility] Creatinine 1.11 0.80 - 1.50 mg/dL 06/09/2024 2:52 AM [facility] Sodium 136 135 - 145 mMol/L 06/09/2024 2:52 AM [facility] Potassium 3.9 3.5 - 5.0 mMol/L 06/09/2024 2:52 AM [facility] Chloride 98 98 - 107 mMol/L 06/09/2024 2:52 AM [facility] Carbon Dioxide 27 22 - 31 mMol/L 06/09/2024 2:52 AM [facility] Anion Gap 11 5 - 15 mMol/L 06/09/2024 2:52 AM [facility] Calcium 9.7 8.5 - 10.5 mg/dL 06/09/2024 2:52 AM [facility] Est Glomerular Filtration Rate - Male 73 mL/min/1. 73 m?? 06/09/2024 2:52 AM [facility] Comment: [...] CHEMISTRY ORDERABLES [facility] [place] [address] * POC, GLUCOSE (06/09/2024 12:34 AM EST) Glucometer, POC 186 65 - 199 mg/dL 06/09/2024 12:34 AM EST [facility] Comment:Supplemental ranges: <140 mg/dL before meals <180 mg/dL all other times of the day. Blood CAPILLARY BLOOD / Unknown 06/09/2024 12:34 AM EST 06/09/2024 12:34 AM EST Melida Valdes MD POINT OF CARE TEST O NIKA Performing Organization Address City/[facility]/ZIP Co de Phone Number [facility] [place] [address] * POC, GLUCOSE (06/08/2024 8:27 PM EST) [...] O NIKA [facility] [place] [address] * POC, GLUCOSE (06/08/2024 4:16 PM EST) Glucometer, POC 159 65 - 199 mg/dL 06/08/2024 4:16 PM EST [facility] Comment:Supplemental ranges: <140 mg/dL before meals <180 mg/dL all other times of the day. Blood CAPILLARY BLOOD / Unknown 06/08/2024 4:16 PM EST 06/08/2024 4:16 PM EST Melida Valdes MD POINT OF CARE TEST O RDERABLES Performing Organization Address [facility] Co de Phone Number [facility] [place] [address] * (ABNORMAL) POC, GLUCOSE (06/08/2024 12:35 PM EST) Glucometer, POC 226(H) 65 - 199 mg/dL 06/08/2024 12:35 PM EST [facility] Comment:Supplemental ranges: <140 mg/dL before meals <180 mg/dL all other times of the day. Blood CAPILLARY BLOOD / Unknown 06/08/2024 12:35 PM EST 06/08/2024 12:35 PM EST Melida Valdes MD POINT OF CARE TEST O NIKA Performing Organization Address [facility] Co de Phone Number [facility] [place] [address] * POC, GLUCOSE (06/08/2024 8:10 AM EST) Glucometer, POC 190 65 - 199 mg/dL 06/08/2024 8:14 AM EST [facility] Comment:Supplemental ranges: <140 mg/dL before meals <180 mg/dL all other times of the day. Blood CAPILLARY BLOOD / Unknown 06/08/2024 8:10 AM EST 06/08/2024 8:14 AM EST Melida Valdes MD POINT OF CARE TEST O NIKA Performing Organization Address [facility] Co de Phone Number [facility] [place] [address] * POC, GLUCOSE (06/08/2024 4:09 AM EST) Glucometer, POC 151 65 - 199 mg/dL 06/08/2024 4:10 AM EST [facility] Comment:Supplemental ranges: <140 mg/dL before meals <180 mg/dL all other times of the day. Blood CAPILLARY BLOOD / Unknown 06/08/2024 4:09 AM EST 06/08/2024 4:10 AM EST Melida Valdes MD POINT OF CARE TEST O RDERABLES Performing Organization Address [facility] Co de Phone Number [facility] [place] [address] * Heparin (unfractionated) Level (06/08/2024 3:21 AM [...] Address City/[facility]/ZIP Co de Phone Number [facility] [place] [address] * (ABNORMAL) CBC (with Diff) (06/08/2024 3:21 AM EST) White Blood Cell 9.92(H) 4.00 - 9.50 x10(3)/mc L 06/08/2024 3:34 AM EST [facility] Red Blood Cell 5.09 4.58 - 5.54 x10(6)/mc L 06/08/2024 3:34 AM [facility] Hemoglobin 15.1 13.7 - 16.5 g/dL [...] HEMATOLOGY ORDERABLE S Performing Organization Address City/State/[facility] Co de Phone Number [facility] [place] [address] * Magnesium (06/08/2024 3:21 AM EST) Magnesium 0.84 0.69 - 1.07 mMol/L 06/08/2024 3:59 AM [facility] Blood VENOUS BLOOD SPECIMEN / Unknown Venipuncture / Unknown 06/08/2024 3:21 AM EST 06/08/2024 3:27 AM EST Shahnaz Scanlon MD CHEMISTRY ORDERABLES [facility] [place] [address] * (ABNORMAL) Basic Metabolic Panel (06/08/2024 3:21 [...] Scanlon MD CHEMISTRY ORDERABLES Performing Organization Address City/[facility]/ZIP Co de Phone Number [facility] [place] [address] * POC, GLUCOSE (06/07/2024 11:57 PM EST) Glucometer, POC 188 65 - 199 mg/dL 06/07/2024 11:57 PM EST [facility] Comment:Supplemental ranges: <140 mg/dL before meals <180 mg/dL all other times of the day. Blood CAPILLARY BLOOD / Unknown 06/07/2024 11:57 PM EST 06/07/2024 11:58 PM EST Melida Valdes MD POINT OF CARE TEST O RDERABLES Performing Organization Address [facility] Co de Phone Number [facility] [place] [address] * POC, GLUCOSE (06/07/2024 8:05 PM EST) [...] Address City/[facility]/ZIP Co de Phone Number [facility] [place] [address] * Potassium (06/07/2024 5:22 PM EST) Potassium 4.6 3.5 - 5.0 mMol/L 06/07/2024 5:59 PM EST [facility] Blood VENOUS BLOOD SPECIMEN / Unknown Venipuncture / Unknown 06/07/2024 5:22 PM EST 06/07/2024 5:26 PM EST Shahnaz Scanlon MD CHEMISTRY ORDERABLES Performing Organization Address [facility] Co de Phone Number [facility] [place] [address] * POC, GLUCOSE (06/07/2024 4:31 PM EST) [...] CARE TEST O RDERABLES Performing Organization Address [facility] Co de Phone Number [facility] [place] [address] * MRI Cardiac Morphology Function wwo Contrast (06/07/2024 1:10 PM EST) WORKSTATION ID [id number] RAD Anatomical Region Laterality Modality Magnetic Resonan [...] - Mildly dilated left ventricle size with ejqpykxp-vi-jrkwsrvq decreased LV systolic function. ??LV ejection fraction [...] who have questions please contact the health home care provider that requested your imaging first. ? Narrative [...] VENTRICLE: Mildly dilated left ventricle size with fwgujpyy-zf-qssuchei decreased LV systolic function. ??LV ejection fraction [...] VENTRICLE: Mildly dilated left ventricle size with qyecympr-hk-nibiycts decreasedLV systolic function. LV ejection fraction is [...] - Mildly dilated left ventricle size with hgpukvyg-uq-fzhqkplt decreasedLV systolic function. LV ejection fraction is [...] patients who have questions please contactthe health home care provider that requested your imaging first. Delroy Fofana [...] CARE TEST O NIKA Performing Organization Address [facility]/ZIP Co de Phone Number [facility] [place] [address] * (ABNORMAL) POC, GLUCOSE (06/07/2024 11:03 AM EST) Glucometer, POC 250(H) 65 - 199 mg/dL 06/07/2024 11:04 AM EST [facility] Comment:Supplemental ranges: <140 mg/dL before meals <180 mg/dL all other times of the day. Blood CAPILLARY BLOOD / Unknown 06/07/2024 11:03 AM EST 06/07/2024 11:04 AM EST Melida Valdes MD POINT OF CARE TEST O NIKA Performing Organization Address City/[facility]/ZIP Co de Phone Number [facility] [place] [address] * Potassium (06/07/2024 9:44 AM EST) Pathologist [facility] [place] Potassium 4.7 3.5 - 5.0 mMol/L 06/07/2024 10:23 AM EST [facility] Blood VENOUS BLOOD SPECIMEN / Unknown Venipuncture / Unknown 06/07/2024 9:44 AM EST 06/07/2024 9:57 AM EST Shahnaz Scanlon MD CHEMISTRY ORDERABLES Performing Organization Address City/[facility]/ZIP Co de Phone Number [facility] [place] [address] * POC, GLUCOSE (06/07/2024 7:45 AM EST) [facility] Glucometer, POC 175 65 - 199 mg/dL 06/07/2024 7:45 AM EST [facility] Comment:Supplemental ranges: <140 mg/dL before meals <180 mg/dL all other times of the day. Blood CAPILLARY BLOOD / Unknown 06/07/2024 7:45 AM EST 06/07/2024 7:46 AM EST Melida Valdes MD POINT OF CARE TEST O RDERABLES Performing Organization Address [facility]/ZIP Co de Phone Number [facility] [place] [address] * XR Chest PA & Lateral (Generic) (06/07/2024 7:03 AM EST) Pathologist [facility] [place] WORKSTATION ID [id number] DH RAD Anatomical Region Laterality Modality Chest [...] who have questions please contact the health home care provider that requested your imaging first. ? Electronically signed by: Stuart Aponte MD, [facility] ??([phone]), at 06/07/2024 10:45 AM Narrative 06/07/2024 10:45 [...] patients who have questions please contactthe health home care provider that requested your imaging first. Shahnaz Scanlon [...] TEST O RDERABLES Performing Organization Address City/State/[facility] Co de Phone Number [facility] [place] [address] * Heparin (unfractionated) Level (06/07/2024 2:41 AM [...] ORDERABLE S [facility] [place] [address] * (ABNORMAL) CBC (with Diff) (06/07/2024 2:41 [...] - 0.40 x10(3)/mc L 06/07/2024 2:58 AM [facility] Basophil % 0.8 % 06/07/2024 2:58 [...] ORDERABLE S [facility] [place] [address] * Magnesium (06/07/2024 2:41 AM EST) Magnesium 0.92 0.69 - 1.07 mMol/L 06/07/2024 3:25 AM [facility] Blood VENOUS BLOOD SPECIMEN / Unknown Venipuncture / Unknown 06/07/2024 2:41 AM EST 06/07/2024 2:51 AM EST Shahnaz Scanlon MD CHEMISTRY ORDERABLES [facility] [place] [address] * (ABNORMAL) Basic Metabolic Panel (06/07/2024 2:41 [...] Scanlon MD CHEMISTRY ORDERABLES Performing Organization Address City/[facility]/ZIP Co de Phone Number [facility] [place] [address] * POC, GLUCOSE (06/07/2024 12:08 AM EST) [...] Address City/[facility]/ZIP Co de Phone Number [facility] [place] [address] * POC, GLUCOSE (06/06/2024 8:18 PM EST) [...] Address City/[facility]/ZIP Co de Phone Number [facility] [place] [address] * POC, GLUCOSE (06/06/2024 3:39 PM EST) Glucometer, POC 147 65 - 199 mg/dL 06/06/2024 3:40 PM EST [facility] Comment:Supplemental ranges: <140 mg/dL before meals <180 mg/dL all other times of the day. Blood CAPILLARY BLOOD / Unknown 06/06/2024 3:39 PM EST 06/06/2024 3:40 PM EST Melida Valdes MD POINT OF CARE TEST O NIKA Performing Organization Address [facility] Co de Phone Number [facility] [place] [address] * Potassium (06/06/2024 2:37 PM EST) Potassium 4.3 3.5 - 5.0 mMol/L 06/06/2024 3:01 PM EST [facility] Blood VENOUS BLOOD SPECIMEN / Unknown Venipuncture / Unknown 06/06/2024 2:37 PM EST 06/06/2024 2:42 PM EST Shahnaz Scanlon MD CHEMISTRY ORDERABLES Performing Organization Address [facility] Co de Phone Number [facility] [place] [address] * (ABNORMAL) POC, GLUCOSE (06/06/2024 1:39 PM [...] Address City/[facility]/ZIP Co de Phone Number [facility] [place] [address] * (ABNORMAL) POC, GLUCOSE (06/06/2024 11:34 AM [...] Address City/[facility]/ZIP Co de Phone Number [facility] [place] [address] * Potassium (06/06/2024 10:17 AM EST) Potassium 4.3 3.5 - 5.0 mMol/L 06/06/2024 10:46 AM EST [facility] Blood VENOUS BLOOD SPECIMEN / Unknown Venipuncture / Unknown 06/06/2024 10:17 AM EST 06/06/2024 10:22 AM EST Shahnaz Scanlon MD CHEMISTRY ORDERABLES Performing Organization Address City/[facility]/ZIP Co de Phone Number [facility] [place] [address] * POC, GLUCOSE (06/06/2024 7:57 AM EST) Glucometer, POC 195 65 - 199 mg/dL 06/06/2024 8:03 AM EST [facility] Comment:Supplemental ranges: <140 mg/dL before meals <180 mg/dL all other times of the day. Blood CAPILLARY BLOOD / Unknown 06/06/2024 7:57 AM EST 06/06/2024 8:03 AM EST Melida Valdes MD POINT OF CARE TEST O NIKA Performing Organization Address [facility] Co de Phone Number [facility] [place] [address] * POC, GLUCOSE (06/06/2024 6:53 AM EST) Glucometer, POC 187 65 - 199 mg/dL 06/06/2024 6:53 AM EST [facility] Comment:Supplemental ranges: <140 mg/dL before meals <180 mg/dL all other times of the day. Blood CAPILLARY BLOOD / Unknown 06/06/2024 6:53 AM EST 06/06/2024 6:54 AM EST Melida Valdes MD POINT OF CARE TEST Abimael MAHER Performing Organization Address [facility] de Phone Number [facility] [place] [address] * (ABNORMAL) Hemoglobin A1c (06/06/2024 3:33 AM [...] red blood cell turnover may not be small business sales representative of glycemic control. Reference Interval: 4.3 - 5.6% 5.7 - 6.4%: Consistent with prediabetes >=6.5%: Consistent with diagnosis of diabetes mellitus Estimated Average Glucose 157 mg/dL 06/06/2024 1:01 PM EST [facility] Blood VENOUS BLOOD SPECIMEN / Unknown Venipuncture / Unknown 06/06/2024 3:33 AM EST 06/06/2024 3:48 AM EST Alejandra Baumann APRN CHEMISTRY ORDERAB LES Performing Organization Address [facility] Co de Phone Number [facility] [place] [address] * Heparin (unfractionated) Level (06/06/2024 3:33 AM [...] MD HEMATOLOGY ORDERABLE S Performing Organization Address [facility] Co de Phone Number [facility] [place] [address] * (ABNORMAL) CBC (with Diff) (06/06/2024 3:33 AM [facility]) [facility] White Blood Cell 9.81(H) 4.00 - 9.50 [...] ORDERABLE S [facility] [place] [address] * Magnesium (06/06/2024 3:33 AM EST) Magnesium 0.92 0.69 - 1.07 mMol/L 06/06/2024 4:17 AM [facility] Blood VENOUS BLOOD SPECIMEN / Unknown Venipuncture / Unknown 06/06/2024 3:33 AM EST 06/06/2024 3:47 AM EST Shahnaz Scanlon MD CHEMISTRY ORDERABLES [facility] [place] [address] * (ABNORMAL) Basic Metabolic Panel (06/06/2024 3:33 [...] Scanlon MD CHEMISTRY ORDERABLES Performing Organization Address [facility]/ZIP Co de Phone Number [facility] [place] [address] * (ABNORMAL) POC, GLUCOSE (06/05/2024 10:31 PM [...] O RDERABLES [facility] [place] [address] * (ABNORMAL) POC, GLUCOSE (06/05/2024 4:22 PM EDT) Glucometer, POC 205(H) 65 - 199 mg/dL 06/05/2024 4:22 PM EDT [facility] Comment:Supplemental ranges: <140 mg/dL before meals <180 mg/dL all other times of the day. Blood CAPILLARY BLOOD / Unknown 06/05/2024 4:22 PM EDT 06/05/2024 4:23 PM EDT Melida Valdes MD POINT OF CARE TEST O NIKA Performing Organization Address City/[facility]/ZIP Co de Phone Number [facility] [place] [address] * (ABNORMAL) POC, GLUCOSE (06/05/2024 11:34 AM EDT) Glucometer, POC 211(H) 65 - 199 mg/dL 06/05/2024 11:34 AM EDT [facility] Comment:Supplemental ranges: <140 mg/dL before meals <180 mg/dL all other times of the day. Blood CAPILLARY BLOOD / Unknown 06/05/2024 11:34 AM EDT 06/05/2024 11:34 AM EDT Melida Valdes MD POINT OF CARE TEST O NIKA Performing Organization Address City/[facility]/ZIP Co de Phone Number [facility] [place] [address] * Potassium (06/05/2024 9:04 AM EDT) Potassium 4.3 3.5 - 5.0 mMol/L 06/05/2024 9:50 AM EDT [facility] Blood VENOUS BLOOD SPECIMEN / Unknown Venipuncture / Unknown 06/05/2024 9:04 AM EDT 06/05/2024 9:21 AM EDT Shahnaz Scanlon MD CHEMISTRY ORDERABLES Performing Organization Address City/[facility]/ZIP Co de Phone Number [facility] [place] [address] * POC, GLUCOSE (06/05/2024 7:27 AM EDT) Glucometer, POC 166 65 - 199 mg/dL 06/05/2024 7:27 AM EDT [facility] Comment:Supplemental ranges: <140 mg/dL before meals <180 mg/dL all other times of the day. Blood CAPILLARY BLOOD / Unknown 06/05/2024 7:27 AM EDT 06/05/2024 7:27 AM EDT Melida Valdes MD POINT OF CARE TEST O RDERABLES Performing Organization Address [facility] Co de Phone Number [facility] [place] [address] * Heparin (unfractionated) Level (06/05/2024 3:44 AM [...] MD HEMATOLOGY ORDERABLE S Performing Organization Address [facility]ZIP Co de Phone Number [facility] [place] [address] * (ABNORMAL) CBC (with Diff) (06/05/2024 3:44 [...] ORDERABLE S [facility] [place] [address] * Magnesium (06/05/2024 3:44 AM EDT) Magnesium 0.92 0.69 - 1.07 mMol/L 06/05/2024 4:20 AM T [facility] Blood VENOUS BLOOD SPECIMEN / Unknown Venipuncture / Unknown 06/05/2024 3:44 AM EDT 06/05/2024 3:50 AM EDT Shahnaz Scanlon MD CHEMISTRY ORDERABLES [facility] [place] [address] * (ABNORMAL) Basic Metabolic Panel (06/05/2024 3:44 [...] 69 mL/min/1. 73 m?? 06/05/2024 4:[facility] AM [facility]: This [...] Scanlon MD CHEMISTRY ORDERABLES Performing Organization Address City/[facility]/ZIP Co de Phone Number [facility] [place] [address] * Potassium (06/04/2024 10:34 PM EDT) Potassium 3.7 3.5 - 5.0 mMol/L 06/04/2024 11:03 PM EDT [facility] Blood VENOUS BLOOD SPECIMEN / Unknown Venipuncture / Unknown 06/04/2024 10:34 PM EDT 06/04/2024 10:39 PM EDT Shahnaz Scanlon MD CHEMISTRY ORDERABLES Performing Organization Address City/[facility]/ZIP Co de Phone Number [facility] [place] [address] * POC, GLUCOSE (06/04/2024 7:43 PM EDT) Glucometer, POC 175 65 - 199 mg/dL 06/04/2024 7:43 PM EDT [facility] Comment:Supplemental ranges: <140 mg/dL before meals <180 mg/dL all other times of the day. Blood CAPILLARY BLOOD / Unknown 06/04/2024 7:43 PM EDT 06/04/2024 7:43 PM EDT Melida Valdes MD POINT OF CARE TEST O RDERAPIETER Performing Organization Address [facility] Co de Phone Number [facility] [place] [address] * Potassium (06/04/2024 4:35 PM EDT) Potassium 4.0 3.5 - 5.0 mMol/L 06/04/2024 5:32 PM EDT [facility] Blood VENOUS BLOOD SPECIMEN / Unknown Venipuncture / Unknown 06/04/2024 4:35 PM EDT 06/04/2024 4:40 PM EDT Shahnaz Scanlon MD CHEMISTRY ORDERABLES Performing Organization Address [facility] Co de Phone Number [facility] [place] [address] * POC, GLUCOSE (06/04/2024 3:26 PM EDT) Glucometer, POC 154 65 - 199 mg/dL 06/04/2024 3:26 PM EDT [facility] Comment:Supplemental ranges: <140 mg/dL before meals <180 mg/dL all other times of the day. Blood CAPILLARY BLOOD / Unknown 06/04/2024 3:26 PM EDT 06/04/2024 3:27 PM EDT Melida Valdes MD POINT OF CARE TEST O NIKA Performing Organization Address [facility]/ZIP Co de Phone Number [facility] [place] [address] * POC, GLUCOSE (06/04/2024 11:09 AM EDT) Glucometer, POC 188 65 - 199 mg/dL 06/04/2024 11:09 AM EDT [facility] Comment:Supplemental ranges: <140 mg/dL before meals <180 mg/dL all other times of the day. Blood CAPILLARY BLOOD / Unknown 06/04/2024 11:09 AM EDT 06/04/2024 11:09 AM EDT Delroy oFfana MD POINT OF CARE TEST ORDERABLES Performing Organization Address [facility] Co de Phone Number [facility] [place] [address] * Heparin (unfractionated) Level (06/04/2024 10:41 AM [...] Address City/[facility]/ZIP Co de Phone Number [facility] [place] [address] * Potassium (06/04/2024 10:41 AM EDT) Potassium 4.0 3.5 - 5.0 mMol/L 06/04/2024 11:11 AM EDT [facility] Blood VENOUS BLOOD SPECIMEN / Unknown Venipuncture / Unknown 06/04/2024 10:41 AM EDT 06/04/2024 10:46 AM EDT Shahnaz Scanlon MD CHEMISTRY ORDERABLES Performing Organization Address City/[facility]/ZIP Co de Phone Number [facility] [place] [address] * POC, GLUCOSE (06/04/2024 7:11 AM EDT) Glucometer, POC 182 65 - 199 mg/dL 06/04/2024 7:12 AM EDT [facility] Comment:Supplemental ranges: <140 mg/dL before meals <180 mg/dL all other times of the day. Blood CAPILLARY BLOOD / Unknown 06/04/2024 7:11 AM EDT 06/04/2024 7:12 AM EDT Delroy Fofana MD POINT OF CARE TEST ORDERABLES Performing Organization Address [facility] Co de Phone Number [facility] [place] [address] * Heparin (unfractionated) Level (06/04/2024 4:38 AM [...] ORDERABLE S [facility] [place] [address] * (ABNORMAL) CBC (with Diff) (06/04/2024 4:38 [...] ORDERABLE S [facility] [place] [address] * Magnesium (06/04/2024 4:38 AM EDT) Magnesium 0.84 0.69 - 1.07 mMol/L 06/04/2024 5:35 AM EDT [facility] Blood VENOUS BLOOD SPECIMEN / Unknown Venipuncture / Unknown 06/04/2024 4:38 AM EDT 06/04/2024 5:07 AM EDT Shahnaz Scanlon MD CHEMISTRY ORDERABLES [facility] [place] [address] * (ABNORMAL) Basic Metabolic Panel (06/04/2024 4:38 [...] CHEMISTRY ORDERABLES [facility] [place] [address] * Heparin (unfractionated) Level (06/03/2024 8:58 PM [...] MD HEMATOLOGY ORDERABLE S Performing Organization Address [facility] Co de Phone Number [facility] [place] [address] * POC, GLUCOSE (06/03/2024 8:05 PM EDT) Glucometer, POC 136 65 - 199 mg/dL 06/03/2024 8:05 PM EDT [facility] Comment:Supplemental ranges: <140 mg/dL before meals <180 mg/dL all other times of the day. Blood CAPILLARY BLOOD / Unknown 06/03/2024 8:05 PM EDT 06/03/2024 8:05 PM EDT Delroy Fofana MD POINT OF CARE TEST ORDERABLES Performing Organization Address City/[facility]/ZIP Co de Phone Number [facility] [place] [address] * POC, GLUCOSE (06/03/2024 5:48 PM EDT) Glucometer, POC 191 65 - 199 mg/dL 06/03/2024 5:48 PM EDT [facility] Comment:Supplemental ranges: <140 mg/dL before meals <180 mg/dL all other times of the day. Blood CAPILLARY BLOOD / Unknown 06/03/2024 5:48 PM EDT 06/03/2024 5:49 PM EDT Delroy Fofana MD POINT OF CARE TEST ORDERABLES [facility] [place] [address] * CT Chest wo Contrast (Generic) (06/03/2024 4:33 PM EDT) WORKSTATION ID [id number] RAD Anatomical Region Laterality Modality Chest Computed Tomogra phy Impressions 06/03/2024 4:47 PM EDT Cardiomegaly. Biventricular ICD leads in place. Thank you for letting us participate in the care of this patient. ??If you are a health care provider and have any questions regarding this report, please contact the number below. ??For patients who have questions please contact the health home care provider that requested your imaging first. ? Narrative [...] patients who have questions please contactthe health home care provider that requested your imaging first. Bobby Loja MD IMG CT ORDERABLES * Carotid Duplex, Bilateral (06/03/2024 2:19 PM EDT) VB Text Report Department: Vascular Surgery Lab Patient: [id number] (GEORGE MEHTA) CPT: 55877 Referring Physician: BOBBY LOJA ?? Phone: Indications: [...] ORDERABLE S [facility] [place] [address] * POC, GLUCOSE (06/03/2024 11:14 AM EDT) Glucometer, POC 166 65 - 199 mg/dL 06/03/2024 11:14 AM EDT [facility] Comment:Supplemental ranges: <140 mg/dL before meals <180 mg/dL all other times of the day. Blood CAPILLARY BLOOD / Unknown 06/03/2024 11:14 AM EDT 06/03/2024 11:14 AM EDT Delroy Fofana MD POINT OF CARE TEST ORDERABLES Performing Organization Address City/[facility]/ZIP Co de Phone Number [facility] [place] [address] * (ABNORMAL) Troponin-T, High Sensitivity 3 Hour [...] [facility] Test Catalog Troponin - https://one-.testcatalog.org/catalogs/565/files/42142 Reference: Fourth Mcnabb Definition of Myocardial Infarction. Journal of the [place] College of Cardiology 2018;72:6750-7309 Troponin-T, HS 3 hr delta 06/03/2024 10:50 AM EDT [facility] Comment:Delta troponin value not calculated, sample collected outside of delta calculation time limit. Blood VENOUS BLOOD SPECIMEN / Unknown IP Care Team Draw / Unknown 06/03/2024 10:06 AM EDT 06/03/2024 10:15 AM EDT Delroy Fofana MD CHEMISTRY ORDERABLE S [facility] [place] [address] * ECHO COMPLETE W CONTRAST (06/03/2024 8:46 AM EDT) Anatomical Region Laterality Modality Cardiac Other 06/03/2024 6:52 AM EDT Narrative 06/03/2024 10:32 AM EDT [address] [place] [address] ? Echocardiogram Report Name: GEORGE MEHTA ?Study Date: 06/03/2024 06:52 AM : 1955 ? Height: 168 cm ? Account: [id number] Age: 69 yrs ? Weight: 102 kg Gender: Male ?BSA: 2.1 m2 Ordering Physician: SHAHNAZ SCANLON Referring Physician: NEHAL QUINTERO Performed By: Sara Kebede RDCS Reason For Study: STEMI Exam Location: [facility]. Interpretation Summary -Left ventricular systolic function is [...] fellow performed study of today's date). Procedure Complete-69229. Image enhancement Optison was used for left [...] Note Jonnie Jordan MD - 06/03/2024 [address] [place] [address] Echocardiogram Report Name: GEORGE MEHTA Study Date: 406:52 AM : 1955 Height: 168 cm Account: [id number] Age: 69 yrs Weight: 102 kg Gender: Male BSA: 2.1 m2 Ordering Physician: SHAHNAZ SCANLON Referring Physician: NEHAL QUINTERO Performed By: Sara Kebede RDCS Reason For Study: STEMI Exam Location: [facility]. Interpretation Summary -Left ventricular systolic function is [...] a fellow performed study of's date). Procedure Complete-87524. Image enhancement Optison was used for left [...] [facility] Test Catalog Troponin - https://one-dh.testcatalog.org/catalogs/565/files/80529 Reference: Fourth Mcnabb Definition of Myocardial Infarction. Journal of the [place] College of Cardiology 2018;72:0475-8524 Troponin-T, HS 1 hr delta 5 ng/L [...] ORDERABLE S [facility] [place] [address] * POC, GLUCOSE (06/03/2024 7:54 AM EDT) Glucometer, POC 195 65 - 199 mg/dL 06/03/2024 7:55 AM EDT [facility] Comment:Supplemental ranges: <140 mg/dL before meals <180 mg/dL all other times of the day. Blood CAPILLARY BLOOD / Unknown 06/03/2024 7:54 AM EDT 06/03/2024 7:55 AM EDT Nuha Rojo MD POINT OF CARE TEST ORDERABLES Performing Organization Address City/[facility]/ZIP Co de Phone Number [facility] [place] [address] * (ABNORMAL) Troponin-T, High Sensitivity (06/03/2024 7:39 AM EDT) [facility] Troponin-T, High Sensitivity Initial 284(H) <=22 ng/L [...] troponin value can be found in the [facility] Test Catalog Troponin - https://Yummy Garden Kids Eatery.org/catalogs/565/files/54302 Reference: Fourth Mcnabb Definition of Myocardial Infarction. Journal of the [place] College of Cardiology 2018;72:6948-5723 Blood VENOUS BLOOD SPECIMEN / Unknown IP Care Team Draw / Unknown 06/03/2024 7:39 AM EDT 06/03/2024 7:48 AM EDT Delroy Fofana MD CHEMISTRY ORDERABLE S [facility] [place] [address] * (ABNORMAL) Troponin-T, High Sensitivity 3 Hour [...] troponin value can be found in the [facility] Test Catalog Troponin - https://Navidog/catalogs/565/files/29173 Reference: Fourth Mcnabb Definition of Myocardial Infarction. Journal of the [place] College of Cardiology 2018;72:0159-4005 Troponin-T, HS 3 hr delta 46 ng/L [...] CHEMISTRY ORDERABLES [facility] [place] [address] * (ABNORMAL) Troponin-T, High Sensitivity 1 Hour [...] [facility] Test Catalog Troponin - https://one-dh.testcatalog.org/catalogs/565/files/00137 Reference: Fourth Mcnabb Definition of Myocardial Infarction. Journal of the [place] College of Cardiology 2018;72:6049-6832 Troponin-T, HS 1 hr delta 10 ng/L [...] CHEMISTRY ORDERABLES [facility] [place] [address] * XR Chest One View (06/03/2024 2:41 AM EDT) WORKSTATION ID [id number] RAD Anatomical Region Laterality Modality Chest N/A Digital Radiogra phy Impressions 06/03/2024 3:06 AM EDT No radiographically evident acute cardiopulmonary process. Thank you for letting us participate in the care of this patient. ??If you are a health care provider and have any questions regarding this report, please contact the number below. ??For patients who have questions please contact the health home care provider that requested your imaging first. ? Narrative [...] patients who have questions please contactthe health home care provider that requested your imaging first. Shahnaz Scanlon [...] ORDERABLE S [facility] [place] [address] * (ABNORMAL) Troponin-T, High Sensitivity (06/03/2024 2:13 [...] [facility] Test Catalog Troponin - https://one-.testcatalog.org/catalogs/565/files/38290 Reference: Fourth Mcnabb Definition of Myocardial Infarction. Journal of the [place] College of Cardiology 2018;72:7147-7716 Blood VENOUS BLOOD SPECIMEN / Unknown IP Care Team Draw / Unknown 06/03/2024 2:13 AM EDT 06/03/2024 2:32 AM EDT Shahnaz Scanlon MD CHEMISTRY ORDERABLES Performing Organization Address City/[facility]/ZIP Co de Phone Number [facility] [place] [address] * Magnesium (06/03/2024 2:13 AM EDT) Magnesium 0.86 0.69 - 1.07 mMol/L 06/03/2024 3:02 AM EDT [facility] Blood VENOUS BLOOD SPECIMEN / Unknown IP Care Team Draw / Unknown 06/03/2024 2:13 AM EDT 06/03/2024 2:32 AM EDT Shahnaz Scanlon MD CHEMISTRY ORDERABLES Performing Organization Address City/[facility]/ZIP Co de Phone Number [facility] [place] [address] * Basic Metabolic Panel (06/03/2024 2:13 AM [...] CHEMISTRY ORDERABLES [facility] [place] [address] * (ABNORMAL) CBC (with Diff) (06/03/2024 2:13 [...] ORDERABLE S [facility] [place] [address] * Lipid Panel (Reflex Direct LDL) (06/03/2024 [...] ACC/AHA Guidelines (most recently Bruce hermosillo al. [facility] 05/07/22): * For individuals with [...] CHEMISTRY ORDERABLES [facility] [place] [address] * (ABNORMAL) APTT (06/03/2024 2:13 AM EDT) [...] ORDERABLE S [facility] [place] [address] * Prothrombin Time (06/03/2024 2:13 AM EDT) [...] ORDERABLE S [facility] [place] [address] * Hepatic Function Panel (06/03/2024 2:13 AM [...] Scanlon MD CHEMISTRY ORDERABLES Performing Organization Address City/[facility]/ZIP Co de Phone Number [facility] [place] [address] * (ABNORMAL) pro-Brain Natriuretic Peptide (06/03/2024 2:13 AM EDT) NT-proBNP 1,628(H) <=124 pg/mL 06/03/2024 4:15 AM EDT [facility] Blood VENOUS BLOOD SPECIMEN / Unknown IP Care Team Draw / Unknown 06/03/2024 2:13 AM EDT 06/03/2024 2:32 AM EDT Shahnaz Scanlon MD CHEMISTRY ORDERABLES [facility] [place] [address] * Phosphorus (06/03/2024 2:13 AM EDT) Phosphorus 4.4 2.5 - 4.5 mg/dL 06/03/2024 3:02 AM EDT [facility] Blood VENOUS BLOOD SPECIMEN / Unknown IP Care Team Draw / Unknown 06/03/2024 2:13 AM EDT 06/03/2024 2:32 AM EDT Shahnaz Scanlon MD CHEMISTRY ORDERABLES Performing Organization Address [facility] Co de Phone Number [facility] [place] [address] * EKG 12 Lead (06/03/2024 1:45 AM EDT) Ventricular rate 63 BPM MUSE SYSTEM Atrial Rate 63 BPM MUSE SYSTEM P-R Interval 168 ms MUSE SYSTEM QRS Duration 96 ms MUSE SYSTEM Q-T Interval 400 ms MUSE SYSTEM QTC Calculated (Bezet) 409 ms MUSE SYSTEM Calculated P [place] 65 degrees MUSE SYSTEM Calculated R [place] 70 degrees MUSE SYSTEM Calculated T [place] -86 degrees MUSE SYSTEM INTERPRETATION Atrial-sensed ventricular-paced rhythm Abnormal ECG No previous ECGs available I personally reviewed the tracing and edited the fellows interpretation Confirmed by fellow Sunni Agudelo ([id number]) on 06/04/2024 3:55:40 PM Confirmed by MD Cantrell Jonathan C. ([id number]) on 06/05/2024 11:46:48 AM MUSE SYSTEM 06/03/2024 1:45 AM EDT 06/05/2024 11:46 AM EDT Shahnaz Scanlon MD ECG ORDERABLES Performing Organization Address [facility] Co de Phone Number MUSE SYSTEM * CARDIAC CATHETERIZATION (06/03/2024 12:42 AM EDT) Anatomical Region Laterality Modality Other Narrative 06/04/2024 2:22 PM EDT ?[facility] ? Cardiac Catheterization/Intervention Report ? Patient Name: George Mehta L. ? Procedure Date: 06/02/2024 ? A #: [id number] ? Primary Physician: Nuha Shen I ? Case #: [id number] ? File Name: [id number] ? Catheterization Order Number: [id number] ? [facility] ?[facility] ? Final Report [place], [place] ? Patient Name: ? George L. Tyson ? ID#: ?[id number] ? : ?1955 ? Procedure Date: ? June 02, 2024 ? Case #: ? [id number] ? Room: ? 5 ? Case Physician: [...] Procedure: ? Sacubitril and Valsartan, Aspirin, Beta Erki, Statin and ? Thrombolytic (any). ? Indications for Diagnostic Cath: ?The priority of the diagnostic procedure was Emergent. 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 ??Imaging was [...] 3.5 guiding catheter and a 3.5 Fr [place] 20 Mhz using ?Manual pullback. ??Imaging was [...] Procedure Note Nuha Shen MD - 07/20/2024 [facility] Cardiac Catheterization/Intervention Report Patient Name: George Mehta Procedure Date: 06/02/2024 A #: [id number] Primary Physician: Nuha Shen I Case #: [id number] File Name: [id number] Catheterization Order Number: [id number] [facility] FinalReport [place], [place] Patient Name: George Mehta ID#:[id number] :1955 Procedure Date: June 02, 2024 Case [...] designated as ASA Class IV. The [facility] clinicalfrailty scale is 5: Mildly Frail. Diagnostic Tests: Electrocardiography: EKG was assessed by ECG. EKG was Abnormal. EKG showed STDeviation >= 0.5 mm. Medications Prior to Procedure: Sacubitril and Valsartan, Aspirin, Beta Erik, Statin and Thrombolytic (any). Indications for Diagnostic Cath: The priority of the diagnostic procedure was Emergent. Theindication for the starch factory laborer visit is ACS less than or [...] units of heparin were administered. A total [id number] of Omnipaque were opened, 84cc of Omnipaque were administered yfa04ts of Omnipaque were wasted. Radiation: Fluoro time [...] 3.5 guiding catheter and a 3.5 Fr [place] 20 Mhz usingManual pullback. Imaging was successful. [...] 3.5 guiding catheter and a 3.5 Fr [place] 20 Mhzusing Manual pullback. Imaging was successful. Indication: IVUS performed for pre intervention planning. Findings Pre-Intervention: scattered plaque, calcification and [id number] degrees calcification. Findings Post-Intervention: Stent not imaged [...] * POC, GLUCOSE (06/02/2024 11:31 PM EDT) [facility] Signature Glucometer, POC 156 65 - 199 mg/dL 06/02/2024 11:31 PM EDT [facility] Comment:Supplemental ranges: <140 mg/dL before meals <180 mg/dL all other times of the day. Blood CAPILLARY BLOOD / Unknown 06/02/2024 11:31 PM EDT 06/02/2024 11:31 PM EDT Narrative Authorizing Provider Result Saranya Rojo MD POINT OF CARE TEST ORDERABLES Performing Organization Address City/State/[facility] Co de Phone Number [facility] [place] [address] documented in this encounter Visit Diagnoses Diagnosis STEMI (ST elevation myocardial infarction)- Primary Acute myocardial infarction, unspecified site, episode of care unspecified ST elevation myocardial infarction (STEMI), unspecified artery Coronary artery disease involving kenaitze coronary artery of kenaitze heart without angina pectoris S/P CABG x 3 Postsurgical aortocoronary bypass status Acute on chronic heart failure with reduced ejection fraction (HFrEF, <= 40%) Coronary artery disease involving kenaitze coronary artery of kenaitze heart without angina pectoris Type 2 diabetes mellitus Type II or unspecified type diabetes mellitus without mention of complication, not stated as uncontrolled Cardiac resynchronization therapy defibrillator (CREDIT CHARGE AUTHORIZER-D) - Medtronic Amplia Cardiomyopathy, ischemic Other specified [...] dose on Fri06/14/24 at 2100, Until Discontinued, [place] teeth and / or gums. Scan the CHG vial in the Kyruus Q-Care Oral Care Kit from floor stock. Ventilator-associated pneumonia prophylaxis For use in ICU/Critical care locations ONLY. Obtain kit from Floor Stock location. Scan CHG vial in the Kyruus Q-Care Oral Care Kit, Routine Given 06/14/2024 [...] restart at 50% of previous rate. Call melt house supervisor if goal not achieved at maximum rate. [...] in sodium chloride 0.9% infusion (for [facility], [facility], OR use only) 3-5 mL/hr, Intravenous, [...] First dose (after last modification) on [facility] 06/19/24 at 0800, Until Discontinued, MEAL [...] MEALS, First dose (after last modification) on [facility] 06/17/24 at 0800, Until Discontinued, MEAL [...] MEALS, First dose (after last modification) on [facility] 06/17/24 at 1700, Until Discontinued, MEAL [...] TIMES DAILY WITH MEALS, First dose on [place] 06/06/24 at 1200, Until Discontinued, MEAL ASSOCIATED Give 1 unit for every 10 grams carbohydrate. Hold if not eating or if BG less than 70 mg/dL. , Routine Given 06/06/2024 12:25 PM EST 4 Units insulin lispro (HumaLOG;Admelog) (100 unit/mL) subcutaneous injection vial 1-10 Units 1-10 Units, Subcutaneous, EVERY 4 HOURS SCHEDULED, First dose (after last modification) on [facility] 06/19/24 at 0800, Until Discontinued, CORRECTION [...] 2100, Last dose on Fri06/23/24 at 0900, Glass Sagger recommended duration is 3 days., Routine Given [...] 8:02 PM EST 2 tablets sodium chloride (Spencer) 0.65 % nasal spray 1 spray 1 [...] 2.0 L/min/M2. Maximum volume 2 L. Call melt house supervisor for additional fluid orders: pager #[phone]. Rate/Dose Verify 06/15/2024 10:00 AM EST 1 [...] 2100, Last dose on Fri06/23/24 at 0900, Glass Sagger recommended duration is 3 days., Routine 2043 [...] oral route first line., Routine sodium chloride (Spencer) 0.65 % nasal spray 1 spray 1 [...] Routine documented in this encounter Care Teams Netbackup Engineer Relationship Specialty Start Date End Date Mauro Berumen MD [address] [place] [address] PCP - General Family Medicine 06/02/24 documented as of this encounter
--- OUTSIDE RECORDS SUMMARY | 2024-09-15 10:43 | XMS_ITS | Encounter Summary ---
Author Organization [facility] [place] [address] Care Team Providers Care Editor Publications Name Role Phone Mauro Berumen MD Primary Care Provider [phone] Reason for Visit * Auth/Cert Specialty Diagnoses / Procedures Referred By Carroll t Referred To Contact Diagnoses STEMI (ST elevation myocardial infarction) STEMI Procedures CARDIAC CATHETERIZATION EMERGENCY Delroy Monterroso MD [facility] [place] [address] [facility] Referral ID Status Reason Start Date Expiration Date Visits Re quested Visits Authorized [id number] 1 1 Encounter Details Date Type Department Care Team (Late st Contact Info) Description 06/14/2024 7:30 AM EST Anesthesia [place] [address] Hosea Ardon MD [facility] [place] [address] Joy Leyva CRNA [facility] [place] [address] Anesthesia Record Procedure Summary Procedure Name Responsible [...] by Zeferino Baker RN PIV 06/13/24; 1200; owaw-zgq-iwxazn catheter system; 20 gauge; metacarpal vein (top [...] temperature probe; 100% silicone; 14; inserted at [facility]; 1; 10; 10; drainage bag; 06/18/24; [...] Ardon MD 06/15/24 0000 by Yoli Donaldson HEALTH PROGRAM DIRECTOR [employer] 06/14/24; 0827; Sing le Lumen; [...] Tobacco: Every Day Cigarettes Smokeless Tobacco: Never [facility] Utilities Answer Date Recorded In the past 12 months has [employer], gas, oil, or water [employer] threatened to shut off services in your [...] Procedure Summary Date: 06/14/24 Room / Location: [facility] OR [address] [place] [address] MAIN OR Anesthesia Start: 729 Anesthesia Stop: [...] All Anesthesia Providers: Anesthesiologist: Hosea Ardon MD INFRASTRUCTURE TECH: Joy Leyva CRNA Vitals Value Taken Time [...] Diagnosis Date Noted Cardiac resynchronization therapy defibrillator (PRINTING ESTIMATOR-D) - Medtronic Amplia 06/09/2024 Cardiomyopathy, ischemic 06/09/2024 Acute on chronic heart failure with reduced ejection fraction (HFrEF, <= 40%) 06/05/2024 Coronary artery disease involving karuk coronary artery of karuk heart without angina pectoris 06/05/2024 Type 2 [...] ACS/crushing chest pain, likely due to lateral [place], 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 LV ejection fraction [...] AM Reason For Study: STEMI Exam Location: [facility]. Interpretation Summary -Left ventricular systolic function [...] 65 - 199 mg/dL -Type and screen ([facility]/CGP/RAFITA): Result Value Ref Range ABORH Type O POSITIVE PATIENT HISTORY Not Found Expires at [id number] on: 06/16/2024 ANTIBODY SCREEN AUTOMATED Negative T&S only valid at [facility] -POC, GLUCOSE: Result Value Ref Range Glucometer, POC 216 (H) 65 - 199 mg/dL -ABORH RECHECK: Result Value Ref Range ABORH Recheck O POSITIVE -Heparin (unfractionated) Level: Result Value Ref Range UF Heparin 0.76 IU/mL Region - Intrathoracic Cardiac Informed Consent: Plan discussed with INFRASTRUCTURE TECH. Anesthesia Screening documented in this encounter Plan of Treatment Upcoming Encounters Date Type Department Care Team (Late st Contact Info) Description 09/29/2024 2:00 PM EST Office Visit Cardiology at [address] [phone] Moi Falcon MD [facility] [place] [address] documented as of this encounter Visit Diagnoses [...] mL/hr documented in this encounter Care Teams Editor Publications Relationship Specialty Start Date End Date Mauro Berumen MD [address] [place] [address] PCP - General Family Medicine 06/02/24 documented as of this encounter
--- OUTSIDE RECORDS SUMMARY | 2024-09-15 10:43 | XMS_ITS | Encounter Summary ---
Author Organization [facility] [place] [address] Care Team Providers Care Cloth Beamer Name Role Phone Mauro Berumen MD Primary Care Provider [phone] Reason for Visit * Auth/Cert Specialty Diagnoses / Procedures Referred By Carroll t Referred To Contact Diagnoses STEMI (ST elevation myocardial infarction) STEMI Procedures CARDIAC CATHETERIZATION EMERGENCY Delroy Monterroso MD [facility] [place] [address] [facility] Referral ID Status Reason Start Date Expiration Date Visits Re quested Visits Authorized [id number] 1 1 Encounter Details Date Type Department Care Team (Late st Contact Info) Description 06/14/2024 7:30 AM EST - 06/14/2024 2:08 PM EST Surgery [place] [address] Bobby Loja MD [facility] [place] [address] @CABG, USING ARTERIAL GRAFT;SINGLE ARTERIAL GRAFT (WRVU 33.75) Social History Tobacco Use Types Packs/Day Years Used Date Smoking Tobacco: Every Day Cigarettes Smokeless Tobacco: Never Tobacco Cessation:Ready to Q uit: No; Counseling Given: Yes [facility] Utilities Answer Date Recorded In [...] 69 y.o. Birthdate: 1955 Language: Citizen [place] Race: Choose not to Disclose Ethnicity: Not nor Admit Date: 06/02/2024 Discharge Date: 06/21/2024 Attending Physician: Bobby Loja MD Follow-up Recommendations for Providers: Please continue routine management of cardiovascular risk factors including blood pressure, lipids,glucose, etc. Please note any changes to medications. Patient to follow up with PCP, Mauro Berumen MD, in 1-2 weeks. Patient to follow up with Ecg Technician, Kristen Cardenas in 2-3 weeks. Patient to follow up with Cardiac Surgeon, Dr. Bobby Loja, in 4 wks. Inpatient Provider Contact Information: [facility] Section of Cardiac Surgery [facility] [place] [address] FAX [phone] Discharge Diagnoses (Hospital Problems) Primary Diagnoses: STEMI [...] (WRVU 33.75) performed by Bobby Loja MD [facility] MAIN OR PRO CABG, ARTERY-VEIN, TWO N/A 06/14/2024 @CABG, TWO VENOUS GRAFTS & ARTERIAL GRAFT (WRVU 7.93) performed by Bobby Loja MD at [facility] OR PRO ENDOSCOPY W/VIDEO-ASST VEIN HARVEST, CABG N/A 06/14/2024 ENDOSCOPIC HARVEST VEIN(S) FOR CABG (WRVU 0.31) performed by Bobby Loja MD at [facility] MAIN OR PRO EXC MEDIASTINAL TUMOR N/A 06/14/2024 @EXCISION OF MEDIASTINAL TUMOR (WRVU 19.55) performed by Bobby Loja MD at [facility] MAIN OR PRO INSERT INTRA-AORTIC BALLOON ASST DEVICE PERCUTANEOUS N/A 06/13/2024 @INSERTION OF IABP,PERCUTANEOUS (WRVU 4.84) performed by Nuha Shen MD at [facility] CATH LABS PRO UNLISTED CARDIAC SURG PROCEDURE N/A 06/14/2024 EXPLORATION AND OVERSEW ATRIAL APPENDAGE (WRVU 5.94) performed by Bobby Loja MD at [facility] [place] Prior To Admission Medications Medications [...] y.o. male with a PMHx of previous RI s/p PCI x3, ICM/HFrEF (LVEF 30%) s/p ICD, DMII, HTN, HLD, remote melanoma, and smoker who presented to [facility] last night via EMS after developing acute, severe chest pain while watching TV. Patient was ruled in for STEMI, given TNK, ASA, plavix, heparin gtt, and sent to [facility] for coronary angiography. LHC demonstrated severely calcified left coronary system with notable LCx 75/80% lesions and BAGGAGE AGENT SUPERVISOR OM1 with ISR with collateral retrograde filling, [...] Hospital Course: George Mehta was admitted to [facility] on 06/02/2024 via the CardiologyService with an anterior STEMI after receiving lytics at OSH. He was brought to the laboratory veterinarian which showed severely calcified left coronary system with notable LCx 75/80% lesions and BAGGAGE AGENT SUPERVISOR OM1 with ISR with collateral retrograde filling, [...] 2 tablespoons of dried fruit. Milk and ni-wqsdf-swxzi yogurt have 15 grams of carbs in a serving. A serving is 1 cup of milk or 3/4 cup (6 oz) of em-jxlcv-wdqvy yogurt. Starchy vegetables have 15 grams of carbs in a serving. A serving is ?? cup of mashed potatoes or sweet potato; 1 cup winter squash; ?? of a small baked potato; ?? cup of cooked beans; or ?? cup cooked corn or green peas. Learn how much carbs to eat each day and at each meal. A dietitian or certified ophthalmic technician can teach you how to keep [...] Bobby Loja and/or the Cardiac Surgery Physician Director Of Pharmacy Team may be reached at . Weight: [...] Dr. Bobby Loja. You may use a [place] Track or treadmill but avoid any pulling [...] friends, go to a movie, go to uatsdin, etc. Heavy activities: No hunting, skiing, jogging, [...] should resume a low fat, low cholesterol, [place] Heart Association Diet/Diabetic diet. Driving: No [...] while being managed by your PCP and/or Ecg Technician. For future medication refills, please refer to your PCP and/or Ecg Technician after your discharge from our service. Thank you REMOVE CHEST TUBE SUTURES ON OR AFTER 06/24/2024 Home oxygen therapy: N/A Follow up appointments: You should follow up with your PCP, Mauro Berumen MD, in 1-2 weeks. You should follow up with your Ecg Technician, Dr CARDENAS. You have an appointment with your Cardiac Surgeon, Dr. Bobby Loja, in 4 wks. Cardiac Rehabilitation: George Mehta was seen today regarding participation in the outpatient Phase 2 Cardiac Rehabilitation at [facility]. The patient agrees to a referral to this program. The referral will be sent at discharge and the patient should be contacted by the program within 1-2 weeks from discharge. Future Appointments and Orders Future Orders Complete By Expires Referral to Cardiac Rehab [[id number] Custom] As directed Process Instructions: If no progress note charted, please enter Clinical details in comments. Scheduling Instructions: Questions: My question or request is: s/p CABG- cardiac rehab at [facility] Referral to Home Health [REF34 Custom] As directed Process Instructions: If no progress note charted, please enter Clinical details in comments. Scheduling Instructions: Comments: Please evaluate George Mehta for admission to Home Health. [address] [facility] [address] (home) Date of : 1955 Inpatient DOCUMENTATION FOR VNA SERVICES (INCLUDING THOSE PATIENTS WITH MEDICARE COVERAGE REQUIRINGHOME VNA SERVICES AND/OR HOSPICE SERVICES) PATIENT'S LOCATION: George Mehta [address] [facility] [address] (home) Telephone Information: Computer Mechanic's Name: self In discussion with the attending physician, it is certified that this patient is under their care and that they, or a Nurse Practitioner, or Physician Director Of Pharmacy who is working directly with them, hada [...] for services as follows: HOME HEALTH AGENCY: [facility] [address] [place] [id number] RN orders: Cardiopulmonary assessment, incisional assessment, assess [...] issues please call the Cardiology Office at [phone] FOR MEDICARE ONLY: (please delete this section [...] care: As above. Signed: KEILA HANLEY APRN [facility] Section of Cardiac Surgery [facility] [place] [address] FAX [phone] Date: 06/21/2024 CC: MD Antonino Tinajero Joshua R, PA [address] [place] [address] [place] [address] documented in this encounter Discharge Instructions * [...] 2 tablespoons of dried fruit. Milk and ck-tenry-ixnfe yogurt have 15 grams of carbs in a serving. A serving is 1 cup of milk or 3/4 cup (6 oz) of yz-xbmie-lmkib yogurt. Starchy vegetables have 15 grams of carbs in a serving. A serving is ?? cup of mashed potatoes or sweet potato; 1 cup winter squash; ?? of a small baked potato; ?? cup of cooked beans; or ?? cup cooked corn or green peas. Learn how much carbs to eat each day and at each meal. A dietitian or certified ophthalmic technician can teach you how to keep [...] Bobby Loja and/or the Cardiac Surgery Physician Director Of Pharmacy Team may be reached at . Weight: [...] Dr. Bobby Loja. You may use a [place] Track or treadmill but avoid any pulling [...] friends, go to a movie, go to uatsdin, etc. Heavy activities: No hunting, skiing, jogging, [...] should resume a low fat, low cholesterol, [place] Heart Association Diet/Diabetic diet. Driving: No [...] while being managed by your PCP and/or Ecg Technician. For future medication refills, please refer to your PCP and/or Ecg Technician after your discharge from our service. Thank you REMOVE CHEST TUBE SUTURES ON OR AFTER 06/24/2024 Home oxygen therapy: N/A Follow up appointments: You should follow up with your PCP, Mauro Berumen MD, in 1-2 weeks. You should follow up with your Ecg Technician, Dr CARDENAS. You have an appointment with your Cardiac Surgeon, Dr. Bobby Loja, in 4 wks. Cardiac Rehabilitation: George Mehta was seen today regarding participation in the outpatient Phase 2 Cardiac Rehabilitation at [facility]. The patient agrees to a referral to [...] RN - 06/21/2024 8:32 AM EST During [facility] Purposeful Rounding, an assessment of your patient's venous access was performed [facility] theVascular Access Service. The following tasks [...] RN - 06/21/2024 8:31 AM EST During [facility] Purposeful Rounding, an assessment of your [...] MARIALUISA clipping. PMH of chronic HFrEF s/p STORE ASSISTANT/ICD, IDDM2, HTN, HLD, remote melanoma, active [...] 2 tablespoons of dried fruit. Milk and tg-ntbbi-xedzw yogurt have 15 grams of carbs in a serving. A serving is 1 cup of milk or 3/4 cup (6 oz) of pt-jrjiz-yufpu yogurt. Starchy vegetables have 15 grams of carbs in a serving. A serving is ?? cup of mashed potatoes or sweet potato; 1 cup winter squash; ?? of a small baked potato; ?? cup of cooked beans; or ?? cup cooked corn or green peas. Learn how much carbs to eat each day and at each meal. A dietitian or certified ophthalmic technician can teach you how to keep [...] cheese, and peanut butter. Alejandra Baumann APRN [facility] Endocrinology Diabetes Management Pager [phone] Weekends please page [phone] * Eric Packer PA - 06/20/2024 7:44 AM EST Cardiac Surgery Progress Note George Mehta is a 69 y.o. male with a history of CAD s/p multiple PCI who presented with an anterior STEMI and was given lytics. Cath showed MV CAD without culprit vessel. He is now 6 Days Post-OpCABGx3 and MARIALUISA clipping. PMH of chronic HFrEF s/p STORE ASSISTANT/ICD, IDDM2, HTN, HLD, remote melanoma, active [...] 89 Pt is followed by heart failure market master at [facility] #IDDM2 DM team following Lantus, SSI Carb controlled diet #Active smoker Duoneb prn Dispo: Floor, full code, home when ready Discussed with attending surgeon on rounds this morning. 06/20/2024 Between the hours of 1800 - 0600 and on the weekends please page [phone]. * Alejandra Baumann APRN - 06/20/2024 7:21 AM EST Follow Up Diabetes Consult Patient Interview Blood glucose values and insulin use reviewed. concrete analyst BG to 59 despite decrease in glargine [...] MARIALUISA clipping. PMH of chronic HFrEF s/p STORE ASSISTANT/ICD, IDDM2, HTN, HLD, remote melanoma, active smoker. 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 Milk and zn-iljyp-drbes yogurt have 15 grams of carbs in a serving. A serving is 1 cup of milk or 3/4 cup (6 oz) of pa-psakj-ajlni yogurt. Starchy vegetables have 15 grams of carbs in a serving. A serving is ?? cup of mashed potatoes or sweet potato; 1 cup winter squash; ?? of a small baked potato; ?? cup of cooked beans; or ?? cup cooked corn or green peas. Learn how much carbs to eat each day and at each meal. A dietitian or certified ophthalmic technician can teach you how to keep [...] MARIALUISA clipping. PMH of chronic HFrEF s/p STORE ASSISTANT/ICD, IDDM2, HTN, HLD, remote melanoma, active [...] 89 Pt is followed by heart failure market master at [facility] Tx to floor #IDDM2 DM team following pre-op Lantus, SSI Carb controlled diet #Active smoker Duoneb prn Dispo: Floor status, full code Discussed with attending surgeon on rounds this morning. Jeffy Hood MD 06/19/2024 Between the hours of 1800 - 0600 and on the weekends please page [phone]. * Alejandra Baumann, POPCORN VENDOR - 06/19/2024 7:09 AM EST Follow Up Diabetes Consult Patient Interview Blood glucose values and insulin use reviewed. 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 Glargine reduced to 45 [...] MARIALUISA clipping. PMH of chronic HFrEF s/p STORE ASSISTANT/ICD, IDDM2, HTN, HLD, remote melanoma, active smoker. Jardiance added back yesterday. concrete analyst low BG to 51. Glargine reduced to [...] 2 tablespoons of dried fruit. Milk and hj-qwjcp-ezpts yogurt have 15 grams of carbs in a serving. A serving is 1 cup of milk or 3/4 cup (6 oz) of il-mvfjm-qagev yogurt. Starchy vegetables have 15 grams of carbs in a serving. A serving is ?? cup of mashed potatoes or sweet potato; 1 cup winter squash; ?? of a small baked potato; ?? cup of cooked beans; or ?? cup cooked corn or green peas. Learn how much carbs to eat each day and at each meal. A dietitian or certified ophthalmic technician can teach you how to keep [...] cheese, and peanut butter. Alejandra Baumann APRN [facility] Endocrinology Diabetes Management Pager [phone] Weekends please page [phone] * Hilda Resendez PTA - 06/18/2024 9:19 AM EST Physical Therapy Note 2 Patient profile: George Mehta is a 69 y.o. male with a history of CAD s/p multiple PCI who presented with an anterior STEMI and was given lytics. Cath showed MV CAD without culprit vessel. He is now 1 Day Post-Op CABGx3 and MARIALUISA clipping. PMH of chronic HFrEF s/p STORE ASSISTANT/ICD, IDDM2, HTN, HLD, remote melanoma, active smoker. Interval History: Per last cardiac surgery note on 06/18/2024 Cr improved 1.4 on lasix 40 iv bid -1.5L, made 2.5L urine Coreg, entresto restarted Floor status Social History: Pt lives with his in a 1 level apartment with no steps to enter. 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 He drives. He sleeps in a recliner at baseline. Precautions/Special Considerations: Sternal precautions, PIV, at risk to fall, PPM Mobility and Positioning Recommendations: Pt to utilize no AD, supervision for ambulation and transfers w/ nurse staff industrial as able. Please encourage up to chair [...] least restrictive device Time IN / OUT: 7809-0912 Total Time: 11 minutes; TEF 1 Hilda Resendez PTA Pager: [phone] Physical Therapy Inpatient Rehabilitation Department * Keila [...] MARIALUISA clipping. PMH of chronic HFrEF s/p STORE ASSISTANT/ICD, IDDM2, HTN, HLD, remote melanoma, active [...] 90 Pt is followed by heart failure market master at [facility], will get name for f/up appt Tx to floor #IDDM2 DM team following pre-op Lantus, SSI Carb controlled diet ? Restarting jardiance #Active smoker Duoneb prn Dispo: CVCC, Full code, tx to floor Discussed with attending surgeon on rounds this morning. KEILA HANLEY, JOSÉ ANTONIO 06/18/2024 Between the hours of 1800 - 0600 and on the weekends please page [phone]. * Alejandra Baumann APRN - 06/17/2024 3:29 [...] MARIALUISA clipping. PMH of chronic HFrEF s/p STORE ASSISTANT/ICD, IDDM2, HTN, HLD, remote melanoma, active [...] based on ISF 20 Alejandra Baumann APRN [facility] Endocrinology Diabetes Management Pager [phone] Weekends please page [phone] 35 minutes were spent over the course [...] MARIALUISA clipping. PMH of chronic HFrEF s/p STORE ASSISTANT/ICD, IDDM2, HTN, HLD, remote melanoma, active [...] 0600 and on the weekends please page [phone]. * Raymond Carlton MD - 06/16/2024 1:11 PM EST CARDIAC CRITICAL CARE ATTENDING STAFF PROGRESS NOTE Patient seen and examined. George Mehta is a 69 y.o. male with: Active Hospital Problems Diagnosis STEMI (ST elevation myocardial infarction) Cardiac resynchronization therapy defibrillator (STORE ASSISTANT-D) - Medtronic Amplia Cardiomyopathy, ischemic Acute on chronic heart failure with reduced ejection fraction (HFrEF, <= 40%) Coronary artery disease involving [place] coronary artery of [place] heart without angina pectoris Type 2 [...] provided Patient screened for f/u and bond writer met pt at bedside. Pt states [...] unless consulted in the interim. RICHA Simmons Aeronautics Teacher * Octaviano Horvaht PA - 06/16/2024 8:07 AM EST Cardiac Surgery Progress Note George Mehta is a 69 y.o. male with a history of CAD s/p multiple PCI who presented with an anterior STEMI and was given lytics. Cath showed MV CAD without culprit vessel. He is now 2 Days Post-OpCABGx3 and MARIALUISA clipping. PMH of chronic HFrEF s/p STORE ASSISTANT/ICD, IDDM2, HTN, HLD, remote melanoma, active [...] 0600 and on the weekends please page [phone]. * Jono Fernandez, PT - 06/15/2024 4:09 PM EST Physical Therapy Evaluation Patient profile: George Mehta is a 69 y.o. male with a history of CAD s/p multiple PCI who presented with an anterior STEMI and was given lytics. Cath showed MV CAD without culprit vessel. He is now 1 Day Post-Op CABGx3 and MARIALUISA clipping. PMH of chronic HFrEF s/p STORE ASSISTANT/ICD, IDDM2, HTN, HLD, remote melanoma, active smoker. 24h Events: From OR on Dobutamine IABP removed Bedrest ended ~2100, sedation weaned Extubated ~0200 Dobutamine weaned to 1 this morning, CI 2.6, shut off and repeat CI 2.4 Social History: Pt lives with his in a 1 level apartment with no steps to enter. 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 He drives. He [...] outlined inthis evaluation. JONO FERNANDEZ, PT Pager: [phone] Physical Therapy Inpatient Rehabilitation Department Time IN / OUT: 5258-1594 Total Time: 33 (eval) minutes * Alejandra Baumann APRN - 06/15/2024 11:39 AM EST Follow Up Diabetes Consult Patient Interview Blood glucose values and insulin use reviewed. Pt remains on an insulin drip today following [id number] MARIALUISA clipping. George continues to complain of [...] MARIALUISA clipping. PMH of chronic HFrEF s/p STORE ASSISTANT/ICD, IDDM2, HTN, HLD, remote melanoma, active [...] based on ISF 20 Alejandra Baumann APRN [facility] Endocrinology Diabetes Management Pager [phone] Weekends please page [phone] 50 minutes were spent over the course [...] elevation myocardial infarction) Cardiac resynchronization therapy defibrillator (STORE ASSISTANT-D) - Medtronic Amplia Cardiomyopathy, ischemic Acute on chronic heart failure with reduced ejection fraction (HFrEF, <= 40%) Coronary artery disease involving [place] coronary artery of [place] heart without angina pectoris Type 2 [...] with h/o DM, CAD with prior PCI, STORE ASSISTANT-D who presented with crushing chest pain, [...] MARIALUISA clipping. PMH of chronic HFrEF s/p STORE ASSISTANT/ICD, IDDM2, HTN, HLD, remote melanoma, active [...] sternotomy dressing CDI, saphenectomy dressing CDi Tubes/Lines/Drains: [place], RIJ, A-line, Mediastinal marcos and bilateral pleural [...] 0600 and on the weekends please page [phone]. * Yoli Donaldson CHECKING CLERK - 06/15/2024 5:35 AM EST AMV Protocol: [...] with h/o DM, CAD with prior PCI, STORE ASSISTANT-D who presented with crushing chest pain, [...] 1.5 PTT 31 T/L/D Barr ETT CVL [place] CT Pacing wires ASSESSMENT, MANAGEMENT, and DECISION MAKIN y.o. male with h/o DM, CAD with prior PCI, STORE ASSISTANT-D who presented with crushing chest pain, [...] on the weekends please page [phone]. * Chloé Cortez - 06/14/2024 9:36 AM [...] unless consulted in the interim. Chloé Cortez Hematology Technologist * Jim Benites MD - 06/13/2024 1:15 [...] - Mildly dilated left ventricle size with dptfkcxo-nw-ilqklifk decreased LV systolic function. LV ejection fraction [...] ACS/crushing chest pain, likely due to lateral RI, found to have surgical CAD with viability [...] elevation myocardial infarction) Cardiac resynchronization therapy defibrillator (STORE ASSISTANT-D) - Medtronic Amplia Cardiomyopathy, ischemic Acute on chronic heart failure with reduced ejection fraction (HFrEF, <= 40%) Coronary artery disease involving [place] coronary artery of [place] heart without angina pectoris Type 2 [...] PCP: Mauro Berumen MD PCP phone number: [phone] Date of Admission: 06/02/2024 ( Hospital Day 10 days ) Attending:Ethel Carrillo MD ID: 69 y.o. male with a h/o DM type 2, HTN, HLD, current smoker (2-3 cigarettes/day), HFrEF with anICD for low EF (~30%), and CAD with prior RI x3 with JENNA placed in [place], Melanoma, PAD, presented to [facility] with 1 hour of retrosternal CP (05/13) while watching TV, found to have STEMI. Active Problems: Active Hospital Problems Diagnosis STEMI (ST elevation myocardial infarction) Cardiac resynchronization therapy defibrillator (STORE ASSISTANT-D) - Medtronic Amplia Cardiomyopathy, ischemic Acute on chronic heart failure with reduced ejection fraction (HFrEF, <= 40%) Coronary artery disease involving [place] coronary artery of [place] heart without angina pectoris Type 2 [...] in the last 7068 hours. Invalid input(s): [id number] Recent Labs 06/12/24 0425 06/11/24 2356 06/11/24 2025 06/11/24 1624 06/11/24 1108 06/11/24 0748 06/11/24 0357 06/11/24 0050 06/10/24 1922 06/10/24 1735 06/10/24 1125 06/10/24 0746 POCGLU 132 135 210* 81 233* 184 132 144 236* 123 216* 206* Heme No results for input(s): LDH, HAPTOGLOBIN, URICACID in the last 168 hours. ABG (Arterial Blood Gas) No results found for: PHART, PO2ART, JPK4REB, UFD5MDY Microbiology: Microbiology Results (Last 30 days) No results found for the last 720 hours. Imaging: Results for orders placed or performed during the hospital encounter of 06/02/24 XR Chest One View (Exam End: 06/03/2024 2:41 AM) Result Value WORKSTATION ID [id number] Impression No radiographically evident acute cardiopulmonary process. Thank you for letting us participate in the care of this patient. If you are a health care provider and have any questions regarding this report, please contact the number below. For patients who have questions please contact the health primary care md that requested your imaging first. Cardiac Morphology Function wwo Contrast (Exam End: 06/07/2024 1:10 PM) Result Value WORKSTATION ID [id number] Impression - Findings consistent with an ischemic [...] - Mildly dilated left ventricle size with sovzdvko-ij-zeujntee decreased LV systolic function. LV ejection fraction [...] who have questions please contact the health primary care md that requested your imaging first. Chest wo Contrast (Generic) (Exam End: 06/03/2024 4:33 PM) Result Value WORKSTATION ID [id number] Impression Cardiomegaly. Biventricular ICD leads in place. Thank you for letting us participate in the care of this patient. If you are a health care provider and have any questions regarding this report, please contact the number below. For patients who have questions please contact the health primary care md that requested your imaging first. Chest PA & Lateral (Generic) (Exam End: 06/07/2024 7:03 AM) Result Value WORKSTATION ID [id number] Impression Biventricular ICD leads intact and in [...] who have questions please contact the health primary care md that requested your imaging first. : Limited echo performed by fellow loss prevention associate to assess LV function. Left ventricle [...] Infusions: heparin (porcine) infusion 1,400 Units/hr (06/12/24 3454) PRN Meds:.insulin lispro, glucose 40% oral geL [...] ischemic cardiomyopathy with HFrEF (~30% EF), prior RI with stents, DM type 2, HTN, HLD, active smoker, presented with anterior STEMI. Angiography revealed severe multivessel CAD with extensive calcification and YUE 3 flow in all vessels, without a clear culprit lesion. Currently pain-free after TNK, Plavix, ASA, and heparin, with mildly elevated LVEDP at 40 mmHg and mild volume overload. 06/12/24: Patient stable, asymptomatic. Plan to go to laboratory veterinarian for balloon pump tomorrow, then willgo to [...] CODE Dain Colón MD Cardiology, M1-S2, Pager #[phone] 06/12/24 Associated attestation - Ethel Carrillo MD [...] of two midnights or is on the [facility] inpatient only procedure list (status C) due to: acute myocardial infarction requiring titration of IV medication and fluid monitoring and decompensated congestive heart failure requiring IV medication and fluid monitoring Ethel Carrillo MD Cardiovascular Medicine Personal Pager [phone] 06/12/2024 9:12 PM * Alejandra Baumann, POPCORN VENDOR - 06/11/2024 4:21 PM EST Images from [...] too aggressive, suggest ICR 1:6 (rule of [id number] = 6.25). George is up and walking [...] ischemic cardiomyopathy with HFrEF (~30% EF), prior RI with stents, DM type 2, HTN, HLD, [...] ac, metformin 1000mg BID Alejandra Baumann APRN [facility] Endocrinology Diabetes Management Pager [phone] Weekends please page [phone] 35 minutes were spent over the course [...] PCP: Mauro Berumen MD PCP phone number: [phone] Date of Admission: 06/02/2024 ( Hospital Day 9 days ) Attending:Melida Valdes MD ID: 69 y.o. male with a h/o DM type 2, HTN, HLD, current smoker (2-3 cigarettes/day), HFrEF with anICD for low EF (~30%), and CAD with prior RI x3 with JENNA placed in [facility], presented to [facility] with 1 hour of retrosternal CP (05/13) while watching TV, found to have STEMI. Active Problems: Active Hospital Problems Diagnosis STEMI (ST elevation myocardial infarction) Cardiac resynchronization therapy defibrillator (STORE ASSISTANT-D) - Medtronic Amplia Cardiomyopathy, ischemic Acute on chronic heart failure with reduced ejection fraction (HFrEF, <= 40%) Coronary artery disease involving [place] coronary artery of [place] heart without angina pectoris Type 2 [...] in the last 7068 hours. Invalid input(s): [id number] Recent Labs 06/11/24 0357 06/11/24 0050 06/10/24 1922 06/10/24 1735 06/10/24 1125 06/10/24 0746 06/10/24 0423 06/10/24 0005 06/09/24 2036 06/09/24 1727 06/09/24 1152 06/09/24 0810 POCGLU 132 144 236* 123 216* 206* 154 125 197 174 211* 209* Heme No results for input(s): LDH, HAPTOGLOBIN, URICACID in the last 168 hours. ABG (Arterial Blood Gas) No results found for: PHART, PO2ART, AHH1MSB, MES7QJF Microbiology: Microbiology Results (Last 30 days) No results found for the last 720 hours. Imaging: Results for orders placed or performed during the hospital encounter of 06/02/24 XR Chest One View (Exam End: 06/03/2024 2:41 AM) Result Value WORKSTATION ID [id number] Impression No radiographically evident acute cardiopulmonary process. Thank you for letting us participate in the care of this patient. If you are a health care provider and have any questions regarding this report, please contact the number below. For patients who have questions please contact the health primary care md that requested your imaging first. Cardiac Morphology Function wwo Contrast (Exam End: 06/07/2024 1:10 PM) Result Value WORKSTATION ID [id number] Impression - Findings consistent with an ischemic [...] - Mildly dilated left ventricle size with unbwhbbq-ju-sobyhxlg decreased LV systolic function. LV ejection fraction [...] who have questions please contact the health primary care md that requested your imaging first. Chest wo Contrast (Generic) (Exam End: 06/03/2024 4:33 PM) Result Value WORKSTATION ID [id number] Impression Cardiomegaly. Biventricular ICD leads in place. Thank you for letting us participate in the care of this patient. If you are a health care provider and have any questions regarding this report, please contact the number below. For patients who have questions please contact the health primary care md that requested your imaging first. Chest PA & Lateral (Generic) (Exam End: 06/07/2024 7:03 AM) Result Value WORKSTATION ID [id number] Impression Biventricular ICD leads intact and in [...] who have questions please contact the health primary care md that requested your imaging first. : Limited echo performed by fellow loss prevention associate to assess LV function. Left ventricle [...] Infusions: heparin (porcine) infusion 1,400 Units/hr (06/10/24 1260) PRN Meds:.insulin lispro, glucose 40% oral geL [...] ischemic cardiomyopathy with HFrEF (~30% EF), prior RI with stents, DM type 2, HTN, HLD, [...] CODE Dain Colón MD Cardiology, M1-S2, Pager #[phone] 06/11/24 Associated attestation - Ethel Carrillo MD [...] of two midnights or is on the [facility] inpatient only procedure list (status C) due to: acute myocardial infarction requiring titration of IV medication and fluid monitoring and decompensated congestive heart failure requiring IV medication and fluid monitoring Ethel Carrillo MD Cardiovascular Medicine Personal Pager [phone] 06/11/2024 9:35 PM * BarbraHilary - 06/10/2024 12:39 PM EST Nutrition Services Note George Mehta is a 69 y.o. male Reason for intervention: hospital day 9 Nutrition Plan: Continue diet order: 60/60/75 CHO Level 2 Encourage good PO Lasix and Insulin noted Monitor weight Patient scheduled for a hospital day 9 nutrition evaluation. Quality Assurance Analyst attempted to meet with pt at bedside [...] unless consulted in the interim. Hilary Belle Aeronautics Teacher * Mariia Montero RN - 06/10/2024 12:23 PM EST I have met with the patient to: discuss discharge planning needs. provide the [facility], Office of Care Management letter from the Advertisement Distributor pertaining to rehab referrals. provide a letter describing our affiliations within the [facility] and educate about their right to choose where referrals are sent. provide a list of Home Health Agencies / Durable Medical Equipment vendors which serve their preferred geographic area. provided patient with [facility] Star Quality Rating handout. They have requested referrals to: [facility] [address] [place] [id number] RN / PT Anticipated d/c date: 06/20/24 Note routed to a Pull Out Operator who will communicate referrals to facilities and provide any required information. * Dain Colón MD - 06/10/2024 7:17 AM EST Images from the original note were not included. . Cardiology Progress Note Patient info: Name: George Mehta : 1955 PCP: Mauro Berumen MD PCP phone number: [phone] Date of Admission: 06/02/2024 ( Hospital Day 8 days ) Attending:Melida Valdes MD ID: 69 y.o. male with a h/o DM type 2, HTN, HLD, current smoker (2-3 cigarettes/day), HFrEF with anICD for low EF (~30%), and CAD with prior RI x3 with JENNA placed in [place], Melanoma, PAD, presented to [facility] with 1 hour of retrosternal CP (05/13) while watching TV, found to have STEMI. Active Problems: Active Hospital Problems Diagnosis STEMI (ST elevation myocardial infarction) Cardiac resynchronization therapy defibrillator (STORE ASSISTANT-D) - Medtronic Amplia Cardiomyopathy, ischemic Acute on chronic heart failure with reduced ejection fraction (HFrEF, <= 40%) Coronary artery disease involving [place] coronary artery of [place] heart without angina pectoris Type 2 [...] in the last 7068 hours. Invalid input(s): [id number] Recent Labs 06/10/24 0423 06/10/24 0005 06/09/24 2036 06/09/24 1727 06/09/24 1152 06/09/24 0810 06/09/24 0440 06/09/24 0034 06/08/24 2027 06/08/24 1616 06/08/24 1235 06/08/24 0810 POCGLU 154 125 197 174 211* 209* 131 186 176 159 226* 190 Heme No results for input(s): LDH, HAPTOGLOBIN, URICACID in the last 168 hours. ABG (Arterial Blood Gas) No results found for: PHART, PO2ART, AJO6JOQ, NQW6IXI Microbiology: Microbiology Results (Last 30 days) No results found for the last 720 hours. Imaging: Results for orders placed or performed during the hospital encounter of 06/02/24 XR Chest One View (Exam End: 06/03/2024 2:41 AM) Result Value WORKSTATION ID [id number] Impression No radiographically evident acute cardiopulmonary process. Thank you for letting us participate in the care of this patient. If you are a health care provider and have any questions regarding this report, please contact the number below. For patients who have questions please contact the health primary care md that requested your imaging first. Cardiac Morphology Function wwo Contrast (Exam End: 06/07/2024 1:10 PM) Result Value WORKSTATION ID [id number] Impression - Findings consistent with an ischemic [...] - Mildly dilated left ventricle size with quhoiywp-xz-cqojzovh decreased LV systolic function. LV ejection fraction [...] who have questions please contact the health primary care md that requested your imaging first. Chest wo Contrast (Generic) (Exam End: 06/03/2024 4:33 PM) Result Value WORKSTATION ID [id number] Impression Cardiomegaly. Biventricular ICD leads in place. Thank you for letting us participate in the care of this patient. If you are a health care provider and have any questions regarding this report, please contact the number below. For patients who have questions please contact the health primary care md that requested your imaging first. Chest PA & Lateral (Generic) (Exam End: 06/07/2024 7:03 AM) Result Value WORKSTATION ID [id number] Impression Biventricular ICD leads intact and in [...] who have questions please contact the health primary care md that requested your imaging first. : Limited echo performed by fellow loss prevention associate to assess LV function. Left ventricle [...] ischemic cardiomyopathy with HFrEF (~30% EF), prior RI with stents, DM type 2, HTN, HLD, [...] CODE Dain Colón MD Cardiology, M1-S2, Pager #[phone] 06/10/24 Associated attestation - Melida Valdes MD [...] a lytic and brought directly to the [employer]. Cardiac catheterization demonstrated multivessel disease with severe [...] who is agreeable Melida Valdes MD Staff Ecg Technician * Cherelle Fregoso APRN - 06/09/2024 [...] ischemic cardiomyopathy with HFrEF (~30% EF), prior RI with stents, DM type 2, HTN, HLD, [...] PCP: Mauro Berumen MD PCP phone number: [phone] Date of Admission: 06/02/2024 ( Hospital Day 7 days ) Attending:Melida Valdes MD ID: 69 y.o. male with a h/o DM type 2, HTN, HLD, current smoker (2-3 cigarettes/day), HFrEF with anICD for low EF (~30%), and CAD with prior RI x3 with JENNA placed in [place], Melanoma, PAD, presented to [facility] with 1 hour of retrosternal CP (05/13) while watching TV, found to have STEMI. Active Problems: Active Hospital Problems Diagnosis STEMI (ST elevation myocardial infarction) Acute on chronic heart failure with reduced ejection fraction (HFrEF, <= 40%) Coronary artery disease involving [place] coronary artery of [place] heart without angina pectoris Type 2 [...] in the last 7068 hours. Invalid input(s): [id number] Recent Labs 06/09/24 0440 06/09/24 0034 06/08/24 2027 06/08/24 1616 06/08/24 1235 06/08/24 0810 06/08/24 0409 06/07/24 2357 06/07/24 2005 06/07/24 1631 06/07/24 1105 06/07/24 1103 POCGLU 131 186 176 159 226* 190 151 188 118 174 221* 250* Heme No results for input(s): LDH, HAPTOGLOBIN, URICACID in the last 168 hours. ABG (Arterial Blood Gas) No results found for: PHART, PO2ART, MRX2XJZ, OCV8KIK Microbiology: Microbiology Results (Last 30 days) No results found for the last 720 hours. Imaging: Results for orders placed or performed during the hospital encounter of 06/02/24 XR Chest One View (Exam End: 06/03/2024 2:41 AM) Result Value WORKSTATION ID [id number] Impression No radiographically evident acute cardiopulmonary process. Thank you for letting us participate in the care of this patient. If you are a health care provider and have any questions regarding this report, please contact the number below. For patients who have questions please contact the health primary care md that requested your imaging first. Cardiac Morphology Function wwo Contrast (Exam End: 06/07/2024 1:10 PM) Result Value WORKSTATION ID [id number] Impression - Findings consistent with an ischemic [...] - Mildly dilated left ventricle size with epjfqsfm-up-jfvfpwmx decreased LV systolic function. LV ejection fraction [...] who have questions please contact the health primary care md that requested your imaging first. Chest wo Contrast (Generic) (Exam End: 06/03/2024 4:33 PM) Result Value WORKSTATION ID [id number] Impression Cardiomegaly. Biventricular ICD leads in place. Thank you for letting us participate in the care of this patient. If you are a health care provider and have any questions regarding this report, please contact the number below. For patients who have questions please contact the health primary care md that requested your imaging first. Chest PA & Lateral (Generic) (Exam End: 06/07/2024 7:03 AM) Result Value WORKSTATION ID [id number] Impression Biventricular ICD leads intact and in [...] who have questions please contact the health primary care md that requested your imaging first. : Limited echo performed by fellow loss prevention associate to assess LV function. Left ventricle [...] Infusions: heparin (porcine) infusion 1,400 Units/hr (06/08/24 7256) PRN Meds:.glucose 40% oral geL OR dextrose [...] ischemic cardiomyopathy with HFrEF (~30% EF), prior RI with stents, DM type 2, HTN, HLD, [...] CODE Dain Colón MD Cardiology, M1-S2, Pager #[phone] 06/09/24 Associated attestation - Melida Valdes MD [...] a lytic and brought directly to the [employer]. Cardiac catheterization demonstrated multivessel disease with severe [...] insertion low EF. Melida Valdes MD Staff Ecg Technician * Alejandra Baumann, POPCORN VENDOR - 06/08/2024 4:10 PM EST Images from [...] ischemic cardiomyopathy with HFrEF (~30% EF), prior RI with stents, DM type 2, HTN, HLD, [...] to optimize glucose control Alejandra Baumann APRN [facility] Endocrinology Diabetes Management Pager [phone] Weekends please page [phone] 35 minutes were spent over the course [...] PCP: Mauro Berumen MD PCP phone number: [phone] Date of Admission: 06/02/2024 ( Hospital Day 6 days ) Attending:Melida Valdes MD ID: 69 y.o. male with a h/o DM type 2, HTN, HLD, current smoker (2-3 cigarettes/day), HFrEF with anICD for low EF (~30%), and CAD with prior RI x3 with JENNA placed in [place], Melanoma, PAD, presented to [facility] with 1 hour of retrosternal CP (05/13) while watching TV, found to have STEMI. Active Problems: Active Hospital Problems Diagnosis STEMI (ST elevation myocardial infarction) Acute on chronic heart failure with reduced ejection fraction (HFrEF, <= 40%) Coronary artery disease involving [place] coronary artery of [place] heart without angina pectoris Type 2 [...] in the last 7068 hours. Invalid input(s): [id number] Recent Labs 06/08/24 0409 06/07/24 2357 06/07/24200406/07/24 1631 06/07/24 1105 06/07/24 1103 06/07/24 0745 06/07/24 0425 06/07/24 0008 06/06/24 2018 06/06/24 1539 06/06/24 1339 POCGLU 151 188 118 174 221* 250* 175 127 182 143 147 317* Heme No results for input(s): LDH, HAPTOGLOBIN, URICACID in the last 168 hours. ABG (Arterial Blood Gas) No results found for: PHART, PO2ART, GHG2ONK, GUD9LVT Microbiology: Microbiology Results (Last 30 days) No results found for the last 720 hours. Imaging: Results for orders placed or performed during the hospital encounter of 06/02/24 XR Chest One View (Exam End: 06/03/2024 2:41 AM) Result Value WORKSTATION ID [id number] Impression No radiographically evident acute cardiopulmonary process. Thank you for letting us participate in the care of this patient. If you are a health care provider and have any questions regarding this report, please contact the number below. For patients who have questions please contact the health primary care md that requested your imaging first. Cardiac Morphology Function wwo Contrast (Exam End: 06/07/2024 1:10 PM) Result Value WORKSTATION ID [id number] Impression - Findings consistent with an ischemic [...] - Mildly dilated left ventricle size with gzavttrf-pe-zffdtawp decreased LV systolic function. LV ejection fraction [...] who have questions please contact the health primary care md that requested your imaging first. Chest wo Contrast (Generic) (Exam End: 06/03/2024 4:33 PM) Result Value WORKSTATION ID [id number] Impression Cardiomegaly. Biventricular ICD leads in place. Thank you for letting us participate in the care of this patient. If you are a health care provider and have any questions regarding this report, please contact the number below. For patients who have questions please contact the health primary care md that requested your imaging first. Chest PA & Lateral (Generic) (Exam End: 06/07/2024 7:03 AM) Result Value WORKSTATION ID [id number] Impression Biventricular ICD leads intact and in [...] who have questions please contact the health primary care md that requested your imaging first. : Limited echo performed by fellow loss prevention associate to assess LV function. Left ventricle [...] Infusions: heparin (porcine) infusion 1,400 Units/hr (06/08/24 0413) PRN Meds:.insulin lispro, potassium chloride ER OR [...] ischemic cardiomyopathy with HFrEF (~30% EF), prior RI with stents, DM type 2, HTN, HLD, [...] CODE Dain Colón MD Cardiology, M1-S2, Pager #[phone] 06/08/24 Associated attestation - Melida Valdes MD [...] a lytic and brought directly to the [employer]. Cardiac catheterization demonstrated multivessel disease with severe [...] Otherwise clinically stable Melida Valdes MD Staff Ecg Technician * Ross Manuel PA - 06/07/2024 12:00 PM EST Cardiac Electrophysiology CIED Interrogation/Programming Note Asked by MRI staff to evaluate and program Medtronic STORE ASSISTANT-D to allow for MR imaging. Patient Active Problem List Diagnosis ','STEMI (ST elevation myocardial infarction) Acute on chronic heart failure with reduced ejection fraction (HFrEF, <= 40%) Coronary artery disease involving [place] coronary artery of [place] heart without angina pectoris Type 2 diabetes mellitus Device Data: [employer] MRI Quad STORE ASSISTANT-D REFV1FZ #[id number] 06/16/2019 RA Medtronic 4076 CapSureFix Novus [id number] 06/16/2019 RV Medtronic [id number] 06/16/2019 LV Medtronic 4298 Attain Performa MRI [id number] 06/16/2019 DDD @ 50/130/130 Adaptive Bi-V and LV VF >188bpm ATP, 35j x6 FVT >188-222bpm burst 2, 35jx5 VT Battery longevity: 2.5yrs; charge time 4s P wave: 2.3mV R wave: >20.0mV Atrial impedance: 458 ohms RV impedance: 646 ohms LV impedance: 722 ohms Atrial threshold: 0.5V @ 0.4ms RV threshold: LV threshold: 1.75V @ 0.4ms AP 0.2% ULTIMATE HOOPS TRAINER 97.7% AT/AF 0% Impression and Plan: 1. Interrogated device to determine suitability for MRI 2. Programmed to MRI safe mode - VOO @ 70 3. Scan performed 4. Programming restored to baseline settings 5. Reinterrogated to verify appropriate function and settings 6. Device follow up as previously scheduled Provider: HENOK Meyer EP Consult attending physician: Libby Barton MD EP Consult positional pager #[phone](EPMD) EP Device interrogation positional pager # [phone] * Dain Colón MD - 06/07/2024 7:09 AM EST Images from the original note were not included. . Cardiology Progress Note Patient info: Name: George Mehta : 1955 PCP: Mauro Berumen MD PCP phone number: [phone] Date of Admission: 06/02/2024 ( Hospital Day 5 days ) Attending:Melida Valdes MD ID: 69 y.o. male with a h/o DM type 2, HTN, HLD, current smoker (2-3 cigarettes/day), HFrEF with anICD for low EF (~30%), and CAD with prior RI x3 with JENNA placed in [place], Melanoma, PAD, presented to [facility] with 1 hour of retrosternal CP (05/13) while watching TV, found to have STEMI. Active Problems: Active Hospital Problems Diagnosis STEMI (ST elevation myocardial infarction) Acute on chronic heart failure with reduced ejection fraction (HFrEF, <= 40%) Coronary artery disease involving [place] coronary artery of [place] heart without angina pectoris Type 2 [...] in the last 7068 hours. Invalid input(s): [id number] Recent Labs 06/07/24 0425 06/07/24 0008 06/06/24 2018 06/06/24 1539 06/06/24 1339 06/06/24 1134 06/06/24 0757 06/06/24 0653 06/05/24 2231 06/05/24 1622 06/05/24 1134 06/05/24 0727 POCGLU 127 182 143 147 317* 264* 195 187 238* 205* 211* 166 Heme No results for input(s): LDH, HAPTOGLOBIN, URICACID in the last 168 hours. ABG (Arterial Blood Gas) No results found for: PHART, PO2ART, LSM4GCH, JCA1EBE Microbiology: Microbiology Results (Last 30 days) No results found for the last 720 hours. Imaging: Results for orders placed or performed during the hospital encounter of 06/02/24 XR Chest One View (Exam End: 06/03/2024 2:41 AM) Result Value WORKSTATION ID [id number] Impression No radiographically evident acute cardiopulmonary process. Thank you for letting us participate in the care of this patient. If you are a health care provider and have any questions regarding this report, please contact the number below. For patients who have questions please contact the health primary care md that requested your imaging first. Chest wo Contrast (Generic) (Exam End: 06/03/2024 4:33 PM) Result Value WORKSTATION ID [id number] Impression Cardiomegaly. Biventricular ICD leads in place. Thank you for letting us participate in the care of this patient. If you are a health care provider and have any questions regarding this report, please contact the number below. For patients who have questions please contact the health primary care md that requested your imaging first. : Limited echo performed by fellow loss prevention associate to assess LV function. Left ventricle [...] Infusions: heparin (porcine) infusion 1,400 Units/hr (06/06/24 9703) PRN Meds:.insulin lispro, potassium chloride ER OR [...] ischemic cardiomyopathy with HFrEF (~30% EF), prior RI with stents, DM type 2, HTN, HLD, [...] Dain Colón MD (PGY-1) Cardiology, M1-S2, Pager #[phone] 06/07/24 Associated attestation - Melida Valdes MD [...] a lytic and brought directly to the [employer]. Cardiac catheterization demonstrated multivessel disease with severe [...] for further guidance. Melida Valdes MD Staff Ecg Technician * Dain Colón MD - 06/06/2024 7:17 AM EST Images from the original note were not included. . Cardiology Progress Note Patient info: Name: George Mehta : 1955 PCP: Mauro Berumen MD PCP phone number: [phone] Date of Admission: 06/02/2024 ( Hospital Day 4 days ) Attending:Melida Valdes MD ID: 69 y.o. male with a h/o DM type 2, HTN, HLD, current smoker (2-3 cigarettes/day), HFrEF with anICD for low EF (~30%), and CAD with prior RI x3 with JENNA placed in [place], Melanoma, PAD, presented to [facility] with 1 hour of retrosternal CP (05/13) while watching TV, found to have STEMI. Active Problems: Active Hospital Problems Diagnosis STEMI (ST elevation myocardial infarction) Acute on chronic heart failure with reduced ejection fraction (HFrEF, <= 40%) Coronary artery disease involving [place] coronary artery of [place] heart without angina pectoris Type 2 [...] in the last 7068 hours. Invalid input(s): [id number] Recent Labs 06/06/24 0653 06/05/24 2231 06/05/24 1622 06/05/24 1134 06/05/24 0727 06/04/24 1943 06/04/24 1526 06/04/24 1109 06/04/24 0711 06/03/24 2005 06/03/24 1748 06/03/24 1114 POCGLU 187 238* 205* 211* 166 175 154 188 182 136 191 166 Heme No results for input(s): LDH, HAPTOGLOBIN, URICACID in the last 168 hours. ABG (Arterial Blood Gas) No results found for: PHART, PO2ART, QDB9TJR, CFG5UMB Microbiology: Microbiology Results (Last 30 days) No results found for the last 720 hours. Imaging: Results for orders placed or performed during the hospital encounter of 06/02/24 XR Chest One View (Exam End: 06/03/2024 2:41 AM) Result Value WORKSTATION ID [id number] Impression No radiographically evident acute cardiopulmonary process. Thank you for letting us participate in the care of this patient. If you are a health care provider and have any questions regarding this report, please contact the number below. For patients who have questions please contact the health primary care md that requested your imaging first. Chest wo Contrast (Generic) (Exam End: 06/03/2024 4:33 PM) Result Value WORKSTATION ID [id number] Impression Cardiomegaly. Biventricular ICD leads in place. Thank you for letting us participate in the care of this patient. If you are a health care provider and have any questions regarding this report, please contact the number below. For patients who have questions please contact the health primary care md that requested your imaging first. : Limited echo performed by fellow loss prevention associate to assess LV function. Left ventricle [...] ischemic cardiomyopathy with HFrEF (~30% EF), prior RI with stents, DM type 2, HTN, HLD, [...] Dain Colón MD (PGY-1) Cardiology, M1-S2, Pager #[phone] 06/06/24 Associated attestation - Melida Valdes MD [...] a lytic and brought directly to the Pipeline Executive. Cardiac catheterization demonstrated multivessel disease with severe [...] management. Help appreciated Melida Valdes MD Staff Ecg Technician * Frederick Dunn MD - 06/05/2024 8:13 AM EDT Images from the original note were not included. . Cardiology Progress Note Patient info: Name: George Mehta : 1955 PCP: Mauro Berumen MD PCP phone number: [phone] Date of Admission: 06/02/2024 ( Hospital Day 3 days ) Attending:Melida Valdes MD ID: 69 y.o. male with a h/o DM type 2, HTN, HLD, current smoker (2-3 cigarettes/day), HFrEF with anICD for low EF (~30%), and CAD with prior RI x3 with JENNA placed in [place], Melanoma, PAD, presented to [facility] with 1 hour of retrosternal CP (05/13) [...] in the last 7068 hours. Invalid input(s): [id number] Recent Labs 06/05/24 1134 06/05/24 0727 06/04/24 1943 06/04/24 1526 06/04/24 1109 06/04/24 0711 06/03/24 2005 06/03/24 1748 06/03/24 1114 06/03/24 0754 06/02/24 2331 POCGLU 211* 166 175 154 188 182 136 191 166 195 156 Heme No results for input(s): LDH, HAPTOGLOBIN, URICACID in the last 168 hours. ABG (Arterial Blood Gas) No results found for: PHART, PO2ART, LKI9QFZ, XLC1VIS Microbiology: Microbiology Results (Last 30 days) No results found for the last 720 hours. Imaging: Results for orders placed or performed during the hospital encounter of 06/02/24 XR Chest One View (Exam End: 06/03/2024 2:41 AM) Result Value WORKSTATION ID [id number] Impression No radiographically evident acute cardiopulmonary process. Thank you for letting us participate in the care of this patient. If you are a health care provider and have any questions regarding this report, please contact the number below. For patients who have questions please contact the health primary care md that requested your imaging first. Chest wo Contrast (Generic) (Exam End: 06/03/2024 4:33 PM) Result Value WORKSTATION ID [id number] Impression Cardiomegaly. Biventricular ICD leads in place. Thank you for letting us participate in the care of this patient. If you are a health care provider and have any questions regarding this report, please contact the number below. For patients who have questions please contact the health primary care md that requested your imaging first. : Limited echo performed by fellow loss prevention associate to assess LV function. Left ventricle [...] ischemic cardiomyopathy with HFrEF (~30% EF), prior RI with stents, DM type 2, HTN, HLD, [...] all the information they need regarding the STORE ASSISTANT-D.Plan for MRI tomorrow. Starting 40 mg [...] a lytic and brought directly to the [facility] [facility]. Cardiac catheterization demonstrated multivessel disease with severe [...] maintenance of 40. Melida Valdes MD Staff Ecg Technician * Migel Javier RN - 06/05/2024 6:21 AM EDT Implanted device record scanned into: Chart Review-->Media-->External Cardiology-->03/25/2024. Medtronic Amplia MRI Quad CRTD [id number] Serial #: [id number] DDD mode A + Bi/V Rates 50-130 Migel Javier RN * Dain Colón MD - 06/04/2024 11:16 AM EDT Implant Records Requested Type: STORE ASSISTANT-D Ornithology Teacher: Medtronic Product: [id number] Amplia MRI MRI compatibility: Compatible for 1.5-3 T Model #: [id number] Placed at: [place], [place] Records requested for MRI: 1. Operative report 2. Implant log I requested that these records be sent to our MRI department, Dain Colón MD 06/04/24 11:58 AM * Dain Colón MD - 06/04/2024 6:57 AM EDT Images from the original note were not included. . Cardiology Progress Note Patient info: Name: George Mehta : 1955 PCP: Mauro Berumen MD PCP phone number: [phone] Date of Admission: 06/02/2024 ( Hospital Day 2 days ) Attending:Delroy Fofana MD ID: 69 y.o. male with a h/o DM type 2, HTN, HLD, current smoker (2-3 cigarettes/day), HFrEF with anICD for low EF (~30%), and CAD with prior RI x3 with JENNA placed in [place], Melanoma, PAD, presented to [facility] with 1 hour of retrosternal CP (05/13) [...] in the last 7068 hours. Invalid input(s): [id number] Recent Labs 06/03/24 2005 06/03/24 1748 06/03/24 1114 06/03/24 0754 06/02/24 2331 POCGLU 136 191 166 195 156 Heme No results for input(s): LDH, HAPTOGLOBIN, URICACID in the last 168 hours. ABG (Arterial Blood Gas) No results found for: PHART, PO2ART, QOZ7WMC, RPN3XPW Microbiology: Microbiology Results (Last 30 days) No results found for the last 720 hours. Imaging: Results for orders placed or performed during the hospital encounter of 06/02/24 XR Chest One View (Exam End: 06/03/2024 2:41 AM) Result Value WORKSTATION ID [id number] Impression No radiographically evident acute cardiopulmonary process. Thank you for letting us participate in the care of this patient. If you are a health care provider and have any questions regarding this report, please contact the number below. For patients who have questions please contact the health primary care md that requested your imaging first. Chest wo Contrast (Generic) (Exam End: 06/03/2024 4:33 PM) Result Value WORKSTATION ID [id number] Impression Cardiomegaly. Biventricular ICD leads in place. Thank you for letting us participate in the care of this patient. If you are a health care provider and have any questions regarding this report, please contact the number below. For patients who have questions please contact the health primary care md that requested your imaging first. : Limited echo performed by fellow loss prevention associate to assess LV function. Left ventricle [...] ischemic cardiomyopathy with HFrEF (~30% EF), prior RI with stents, DM type 2, HTN, HLD, [...] -Lasix 40 mg IV given in the laboratory veterinarian; assess diuretic response, consider re-dosing -Continue carvedilol; [...] a lytic and brought directly to the [facility]. Cardiac catheterization demonstrated multivessel disease with severe [...] Friday -Diuresis with Jovanni Valdes MD Staff Ecg Technician * Fatmata Mcallister PT - 06/03/2024 [...] vs PCI) Fatmata Mcallister PT, MSPT Pager [phone] Inpatient Physical Therapy * Marlin Gómez MD [...] Marlin Gómez MD Cardiology S2, Pager # [phone] 06/03/2024 * Delroy Fofana MD - 06/03/2024 7:16 AM EDT Images from the original note were not included. . Cardiology Progress Note Patient info: Name: George Mehta : 1955 PCP: Mauro Berumen MD PCP phone number: [phone] Date of Admission: 06/02/2024 ( Hospital Day 1 day ) Attending:Nuha Rojo MD ID: 69 y.o. male with a h/o DM type 2, HTN, HLD, current smoker (2-3 cigarettes/day), HFrEF with anICD for low EF (~30%), and CAD with prior RI x3 with JENNA placed in [place], Melanoma, PAD, presented to [facility] with 1 hour of retrosternal CP (05/13) [...] in the last 7068 hours. Invalid input(s): [id number] Recent Labs 06/02/24 2331 POCGLU 156 Heme No results for input(s): LDH, HAPTOGLOBIN, URICACID in the last 168 hours. ABG (Arterial Blood Gas) No results found for: PHART, PO2ART, GZZ4CFS, KZV5HMT Microbiology: Microbiology Results (Last 30 days) No results found for the last 720 hours. Imaging: Results for orders placed or performed during the hospital encounter of 06/02/24 XR Chest One View (Exam End: 06/03/2024 2:41 AM) Result Value WORKSTATION ID [id number] Impression No radiographically evident acute cardiopulmonary process. Thank you for letting us participate in the care of this patient. If you are a health care provider and have any questions regarding this report, please contact the number below. For patients who have questions please contact the health primary care md that requested your imaging first. : Limited echo performed by fellow loss prevention associate to assess LV function. Left ventricle [...] ischemic cardiomyopathy with HFrEF (~30% EF), prior RI with stents, DM type 2, HTN, HLD, [...] -Lasix 40 mg IV given in the laboratory veterinarian; assess diuretic response, consider re-dosing -Continue carvedilol; [...] plan of care per Dain Colón MD (general medical practitioner). Please refer to his note above for details. Very pleasant 69 year old male but he is obese, diabetic, and he is a SMOKER with known prior CAD and moderately reduced LVEF (30%). He has a pacer. History of surgical resection of melanoma on his head. The patient was transferred overnight to [facility] as a STEMI. He was treated initially with a lytic (TNK) and brought directly to the laboratory veterinarian. The cath demonstrated 3VD with diffuse disease [...] - 06/13/2024 10:58 AM EST ICU Blue (#[id number]) H&P Patient info: Name: George Mehta : 1955 PCP: Mauro Berumen MD PCP phone number: [phone] Date of Admission: 06/02/2024 ( Hospital Day 11 days ) Attending:Haja Byrnes MD ID: George Mehta is a 69 y.o. male with a h/o DM type 2, HTN, HLD, current smoker (2-3 cigarettes/day), HFrEF with an ICD for low EF (~30%), and CAD with prior RI x3 with JENNA placed in [place], Melanoma, PAD, presented to [facility] with 1 hour of retrosternal CP (05/13) while watching TV, foundto have STEMI. HPI: Shahnaz Scanlon H&P 06/02 69 y.o. male with a h/o DM type 2, HTN, HLD, current smoker (2-3 cigarettes/day), HFrEF with an ICD for low EF (~30%), and CAD with prior RI x3 with JENNA placed in [place], Melanoma, PAD, presented to [facility] with 1 hour of retrosternal CP (05/13) while watching TV. CP was non-radiating, not asso ciated with diaphoresis, nausea, or SOB. Denies orthopnea, MARTÍNEZ, palpitations, or LE edema. ECG showed findings consistent with anterior STEMI. He received TNK and was transferred for PCI. Coronary angiography showed a small, non-dominant RCA with gfxl-ai-lduxrmcf disease and a dominant,heavily calcified left system with prior stents in the LAD and OM. The LM bifurcates into the LAD and LCX, both heavily calcified. The proximal LCX has a 75% calcified, aneurysmal lesion, and an 80% calcified lesion distally before a large OM2. OM1 is a BAGGAGE AGENT SUPERVISOR with in-stent restenosis, filling retrograde via collaterals. [...] 40 mg Lasix was administered in the laboratory veterinarian. Cardiac surgery was consulted and plan for [...] Blood Gas) No results for input(s): PHART, WSZ1ZJW, PO2ART, PAJ2JLU, LACTATEVEN, VUP6RJM, PFRATIOART2 in the last 168 hours. VBG (Venous Blood Gas) Recent Labs 06/10/24 1742 PHVEN 7.34 PO2VEN 24 WEC5YCI 27.4 Mixed Venous Sat No results for input(s): P9UNRJ4 in the last 168 hours. Intake/Output Summary [...] in the last 7068 hours. Invalid input(s): OEAOOVUDJNG8X Recent Labs 06/13/24 0741 06/13/24 0325 06/12/24 2353 06/12/24 1932 06/12/24 1541 06/12/24 1121 06/12/24 0800 06/12/24 0425 06/11/24 2356 06/11/24 2025 06/11/24 1624 06/11/24 1108 POCGLU 126 99 141 158 113 207* 169 132 135 210* 81 233* Heme No results for input(s): LDH, HAPTOGLOBIN, URICACID in the last 168 hours. ABG (Arterial Blood Gas) No results for input(s): PHART, FVY5NSJ, PO2ART, EEM2OAC, LACTATEVEN, KSA3HKS, PFRATIOART2 in the last 168 hours. VBG (Venous Blood Gas) Recent Labs 06/10/24 1742 PHVEN 7.34 PO2VEN 24 PZL9SWC 27.4 Mixed Venous Sat No results for input(s): O1IQRQ8 in the last 168 hours. Microbiology: Microbiology Results (Last 30 days) No results found for the last 720 hours. Assessment & Plan: George Mehta is a 69 y.o. male with CAD, ischemic cardiomyopathy with HFrEF (~30% EF), prior RI with stents, DM type 2, HTN, HLD, active smoker, presented with anterior STEMI. Angiography revealedsevere multivessel CAD with extensive calcification and YUE 3 flow in all vessels, without a clearculprit lesion. Currently pain-free after TNK, Plavix, ASA, and heparin, with mildly elevated LVEDPat 40 mmHg and mild volume overload. Admitted to [facility] for clarence-operative management following IABP placement. Planned for CABG 06/14. 06/13/2024 Patient now s/p IABP placement. Procedure occurred without complication. IABP set to 1:1. Will continue with heparin for ASCVD. Plan for CABG 06/14. Patient NPO at [facility]. #ASCVD / STEMI: -Holding Plavix; continue ASA [...] (Give Meds) Daily Healthy Menu Choices/Cardiac diet ([facility]-Diet) DVT Prophylaxis: SCD [...] TUD (abstinent since admission), ASCVD with multipleprior RI and PCIs, ICM/HFrEF LVEF 30% (all [...] is in the chart Rebeca Prado MD Professor Of Communication PGY6 [id number] * Shahnaz Scanlon MD - [...] low EF (~30%), and CAD with prior RI x3 with JENNA placed in [facility], presented to [facility] with 1 hour of retrosternal CP (05/13) while watching TV. CP was non-radiating, not assoc iated with diaphoresis, nausea, or SOB. Denies orthopnea, MARTÍNEZ, palpitations, or LE edema. ECG showed findings consistent with anterior STEMI. He received TNK and was transferred for PCI. Coronary angiography showed a small, non-dominant RCA with fumr-al-ndqehpwv disease and a dominant,heavily calcified left system with prior stents in the LAD and OM. The LM bifurcates into the LAD and LCX, both heavily calcified. The proximal LCX has a 75% calcified, aneurysmal lesion, and an 80% calcified lesion distally before a large OM2. OM1 is a BAGGAGE AGENT SUPERVISOR with in-stent restenosis, filling retrograde via collaterals. [...] 40 mg Lasix was administered in the laboratory veterinarian. Past Medical History: As per HPI Significant [...] Affect: Mood normal. Behavior: Behavior normal. Diagnostics: [facility] 06/02/2024 Coronary angiography revealed small non [...] ischemic cardiomyopathy with HFrEF (~30% EF), prior RI with stents, DM type 2, HTN, HLD, [...] -Lasix 40 mg IV given in the laboratory veterinarian; assess diuretic response. -Continue carvedilol; hold Entresto [...] & Follow-up Care: Contact information for follow-up [facility] [address] [facility] [address] Cardiac Rehab, [address] [address] JAMIE GRAMAJO confirmed with [facility] that they [...] Roberts RN - 06/18/2024 10:50 AM EST [facility]IL[facility]ATION George Mehta was seen today regarding participation in the outpatient Phase 2 Cardiac Rehabilitation at [facility]. The patient agrees to a referral to [...] Implemented as Appropriate) * Care Management - Vargsa Delong RN - 06/17/2024 12:11 PM EST [...] Referrals: pending clinical course and PT/OT recs [facility] [address] [facility] [address] PHONE: [phone] FAX: [phone] Transportation: family or friend will provide Barriers [...] is insured through: Primary Insurance: [facility] [email or web address] MEDICARE Payor: [facility] [email or web address] MEDICARE / Plan: [facility] MANAGED MEDICARE COMPLETE / Product Type: *No Product type* / Secondary Insurance: N/A Plan for discharge is: Home w/ Services Outpatient Agency/Support Group Needs: Homecare agency Agency Choices: [facility]: Medication checks, Registered Nurse, Physical Therapy Agency Referrals: pending clinical course and PT/OT recs [facility] [address] [place] [address] PHONE: [phone] FAX: [phone] Transportation: family or friend will provide Barriers [...] Loja MD - 06/14/2024 8:48 AM EST [facility] Operative Note Patient Name: George Mehta : [id number] MR#: [id number] Case Date: 06/14/2024 Surgeon: Surgeons and Role: * Bobby Loja MD - Primary * Rashi Bass PA - Physician Director Of Pharmacy Preoperative diagnosis: CAD, MARIALUISA flickering mass on [...] and tomorrow. Report called to [facility] - all belongings with patient. PLAN MOVING FORWARD: medical lab assistant and transfer to [facility]. INDIVIDUALIZED FALL PREVENTION [...] is insured through: Primary Insurance: [facility] MANAGED MEDICARE Payor: [facility] MANAGED MEDICARE / Plan: [employer] MANAGED MEDICARE COMPLETE / Product Type: *No Product type* / Secondary Insurance: N/A Plan for discharge is: Home w/ Services Outpatient Agency/Support Group Needs: Homecare agency, Agency Choices: [facility] Home Health Services: Medication checks, Registered Nurse, Physical Therapy Agency Referrals: [facility] [address] [place] [address] RN / PT Routed 06/10 Transportation: family [...] with home health services when medically ready. steamtable attendant railroad/Research Analyst will continue to follow patient???s progress and remain available if situation changes for coordination of care, psychosocial support and/or discharge planning. Anticipated Date of Discharge: 06/18/2024 Mariia Montero RN CM Extension [phone] * Plan of Care - Migel Javier [...] No Patient is insured through: Primary Insurance: [email or web address] MEDICARE Payor: [email or web address] MEDICARE / Plan: [facility] [email or web address] MEDICARE COMPLETE / Product Type: *No Product [...] consult for high risk PCI vs CABG steamtable attendant railroad/Research Analyst will continue to follow patient???s progress and remain available if situation changes for coordination of care, psychosocial support and/or discharge planning. 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 Diabetes History: George Mehta [...] Breakfast- varies - eggs with khoury or ukrainian muffin Lunch- turkey sandwich Supper- meat and [...] Infusions: heparin (porcine) infusion 1,400 Units/hr (06/06/24 4885) PRN: insulin lispro, potassium chloride ER OR [...] ischemic cardiomyopathy with HFrEF (~30% EF), prior RI with stents, DM type 2, HTN, HLD, [...] Baumann APRN Endocrinology Diabetes Management Service Pager: [phone] Weekends please page [phone] 80 minute visit was spent in counseling [...] y.o. male with a PMHx of previous RI s/p PCI x3, ICM/HFrEF (LVEF 30%) s/p ICD, DMII, HTN, HLD, remote melanoma, and smoker who presented to [facility] last night via EMS after developing acute, severe chest pain while watching TV. Patient was ruled in for STEMI, given TNK, ASA, plavix, heparin gtt, and sent to [facility] for coronary angiography. LHC demonstrated severely calcified left coronary system with notable LCx 75/80% lesions and BAGGAGE AGENT SUPERVISOR OM1 with ISR with collateral retrograde filling, [...] elevation myocardial infarction) Past Medical History: previous RI s/p PCI x3 ICM/HFrEF (LVEF 30%) s/p [...] is large. OM1 appears to be a BAGGAGE AGENT SUPERVISOR, with in stentrestenosis and fills retrograde via [...] y.o. male admitted with STEMI s/p TNK, [facility] showing multivessel CAD including ISR, no [...] to our service. Signed: Paula Treviño PA-C [facility] Section of Cardiac Surgery Date: 06/03/2024 * Initial Assessments - Boone, Catina A, BALLET PROFESSOR - 06/03/2024 10:32 AM EDT Office of Care Management Initial Assessment CHINA Humphrey reviewed record and discussed patient with Care Team. Source of Information: Team, bedside nurse, medical record, and Patient [place] Introduced self/reviewed role; services accepted. Admitted From: Transfer from another hospital Location: [facility] Reason for Hospitalization: Chest Pain [...] 180 days) Any patient receiving care in [place] must abide by [place] law. The hierarchy [...] The agent with financial power of assistant attorney general or a conservator appointed in [...] homeless or living in a retirement (including now)?: No In the past 12 months has the electric, gas, oil, or water [employer] threatened to shut off services in your [...] the bathroom) Home Address confirmed as: [address] [place] [address] [address] [facility] [address] Social & Family Supports: All names listed [...] Pertinent/Service Specific Information: Health/Prescription Coverage: Primary Insurance: [facility] [email or web address] MEDICARE Payor: [facility] MANAGED MEDICARE / Plan: [facility] MANAGED MEDICARE COMPLETE / Product Type: *No Product type* / Secondary Insurance: N/A ; Prescription Coverage: Yes Preferred Pharmacy: [id number] - [place], [place] - [address] [facility] [address] [place] [id number] [place] Status: Patient is a : No Primary Care Provider confirmed: Mauro Berumen MD [phone] Patient/Caregiver Goals of Treatment: Potential Needs for [...] care as indicated. CHINA Min Cardiology, [phone]. [phone] * Brief Op Note - Angeles Gaxiola PA - 06/03/2024 12:23 AM EDT Preliminary Cardiac Catheterization Procedure Note: Patient Name: George Mehta : [id number] MR#: [id number] Case Date: 06/02/2024 - 06/03/2024 Cyber Software Engineer: Surgeons and Role: * Nuha Shen MD - Primary * Angeles Gaxiola PA - Physician Director Of Pharmacy Preoperative diagnosis: STEMI Postoperative diagnosis: * STEMI * Procedure(s) performed: RRA access [facility] Coronary angiogram IVUS LM/LAD/LCX Access: 6 Fr RRA A time-out was conducted prior to the start of the procedure to verify the correct patient and procedure, procedure location, and all relevant critical information. Preliminary findings: 69 year old current smoker (1-2 cigarette's per day), DM type 2, hypertension, dyslipidemia, ICD for HFrEF/low EF (~30%), CAD with prior RI and 3 stents historically (in [place]) who presented to [facility] with 1 hour of rest chest pain [...] is large. OM1 appears to be a BAGGAGE AGENT SUPERVISOR, with in stentrestenosis and fills retrograde via [...] receive 40 mg of lasix in the laboratory veterinarian. 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 Glucometer, POC 142 65 - 199 mg/dL 06/21/2024 3:51 AM EST [facility] Comment:Supplemental ranges: <140 mg/dL before meals <180 mg/dL all other times of the day. Blood CAPILLARY BLOOD / Unknown 06/21/2024 3:51 AM EST 06/21/2024 3:51 AM EST Bobby Loja MD POINT OF CARE TEST O RDERABLES [facility] [place] [address] * (ABNORMAL) Basic Metabolic Panel (06/21/2024 2:09 AM EST) Glucose 169 65 - 199 mg/dL 06/21/2024 3:10 AM EST [facility] Comment:Glucose Concentratio n >=200 mg/dL plus symptoms is consistent with Diabetes Mellitus. Blood Urea Nitrogen 27(H) 10 - 20 mg/dL 06/21/2024 3:10 AM EST [facility] Creatinine 1.24 0.80 - [...] APRN CHEMISTRY ORDERABL ES Performing Organization Address [facility] Co de Phone Number [facility] [place] [address] * POC, GLUCOSE (06/21/2024 12:04 AM EST) Glucometer, POC 157 65 - 199 mg/dL 06/21/2024 12:04 AM EST [facility] Comment:Supplemental ranges: <140 mg/dL before meals <180 mg/dL all other times of the day. Blood CAPILLARY BLOOD / Unknown 06/21/2024 12:04 AM EST 06/21/2024 12:04 AM EST Bobby Loja MD POINT OF CARE TEST O RDERABLES [facility] [place] [address] * POC, GLUCOSE (06/20/2024 11:14 PM EST) Glucometer, POC 67 65 - 199 mg/dL 06/20/2024 11:14 PM EST [facility] Comment:Supplemental ranges: <140 mg/dL before meals <180 mg/dL all other times of the day. Blood CAPILLARY BLOOD / Unknown 06/20/2024 11:14 PM EST 06/20/2024 11:14 PM EST Bobby Loja MD POINT OF CARE TEST O NIKA Performing Organization Address [facility] Co de Phone Number [facility] [place] [address] * POC, GLUCOSE (06/20/2024 7:16 PM EST) Glucometer, POC 132 65 - 199 mg/dL 06/20/2024 7:16 PM EST [facility] Comment:Supplemental ranges: <140 mg/dL before meals <180 mg/dL all other times of the day. Blood CAPILLARY BLOOD / Unknown 06/20/2024 7:16 PM EST 06/20/2024 7:16 PM EST Bobby Loja MD POINT OF CARE TEST Abimael MAHER Performing Organization Address [facility] Co de Phone Number [facility] [place] [address] * POC, GLUCOSE (06/20/2024 3:39 PM EST) Glucometer, POC 124 65 - 199 mg/dL 06/20/2024 3:40 PM EST [facility] Comment:Supplemental ranges: <140 mg/dL before meals <180 mg/dL all other times of the day. Blood CAPILLARY BLOOD / Unknown 06/20/2024 3:39 PM EST 06/20/2024 3:40 PM EST Bobby Loja MD POINT OF CARE TEST O NIKA Performing Organization Address [facility] Co de Phone Number [facility] [place] [address] * POC, GLUCOSE (06/20/2024 12:02 PM EST) [...] CARE TEST O NIKA Performing Organization Address [facility] Co de Phone Number [facility] [place] [address] * POC, GLUCOSE (06/20/2024 7:10 AM EST) [...] CARE TEST Abimael MAHER Performing Organization Address [facility] Co de Phone Number [facility] [place] [address] * (ABNORMAL) Basic Metabolic Panel (06/20/2024 2:28 [...] CHEMISTRY ORDERABL ES [facility] [place] [address] * POC, GLUCOSE (06/20/2024 12:32 AM EST) Glucometer, POC 86 65 - 199 mg/dL 06/20/2024 12:32 AM EST [facility] Comment:Supplemental ranges: <140 mg/dL before meals <180 mg/dL all other times of the day. Blood CAPILLARY BLOOD / Unknown 06/20/2024 12:32 AM EST 06/20/2024 12:32 AM EST Bobby Loja MD POINT OF CARE TEST O RALPHERAPIETER Performing Organization Address [facility] Co de Phone Number [facility] [place] [address] * (ABNORMAL) POC, GLUCOSE (06/20/2024 12:02 AM EST) Glucometer, POC 59(L) 65 - 199 mg/dL 06/20/2024 12:02 AM EST [facility] Comment:Supplemental ranges: <140 mg/dL before meals <180 mg/dL all other times of the day. Blood CAPILLARY BLOOD / Unknown 06/20/2024 12:02 AM EST 06/20/2024 12:03 AM EST Bobby Loja MD POINT OF CARE TEST O NIKA Performing Organization Address [facility] Co de Phone Number [facility] [place] [address] * POC, GLUCOSE (06/19/2024 8:15 PM EST) Glucometer, POC 131 65 - 199 mg/dL 06/19/2024 8:15 PM EST [facility] Comment:Supplemental ranges: <140 mg/dL before meals <180 mg/dL all other times of the day. Blood CAPILLARY BLOOD / Unknown 06/19/2024 8:15 PM EST 06/19/2024 8:15 PM EST Bobby Loja MD POINT OF CARE TEST O NIKA Performing Organization Address [facility] Co de Phone Number [facility] [place] [address] * POC, GLUCOSE (06/19/2024 6:01 PM EST) Glucometer, POC 129 65 - 199 mg/dL 06/19/2024 6:01 PM EST [facility] Comment:Supplemental ranges: <140 mg/dL before meals <180 mg/dL all other times of the day. Blood CAPILLARY BLOOD / Unknown 06/19/2024 6:01 PM EST 06/19/2024 6:02 PM EST Bobby Loja MD POINT OF CARE TEST O NIKA Performing Organization Address [facility] Co de Phone Number [facility] [place] [address] * POC, GLUCOSE (06/19/2024 4:51 PM EST) Glucometer, POC 155 65 - 199 mg/dL 06/19/2024 4:51 PM EST [facility] Comment:Supplemental ranges: <140 mg/dL before meals <180 mg/dL all other times of the day. Blood CAPILLARY BLOOD / Unknown 06/19/2024 4:51 PM EST 06/19/2024 4:51 PM EST Bobby Loja MD POINT OF CARE TEST Abimael MAHER Performing Organization Address [facility] de Phone Number [facility] [place] [address] * POC, GLUCOSE (06/19/2024 12:37 PM EST) Glucometer, POC 136 65 - 199 mg/dL 06/19/2024 12:37 PM EST [facility] Comment:Supplemental ranges: <140 mg/dL before meals <180 mg/dL all other times of the day. Blood CAPILLARY BLOOD / Unknown 06/19/2024 12:37 PM EST 06/19/2024 12:37 PM EST Bobby Loja MD POINT OF CARE TEST O NIKA Performing Organization Address [facility] Co de Phone Number [facility] [place] [address] * POC, GLUCOSE (06/19/2024 11:20 AM EST) Glucometer, POC 185 65 - 199 mg/dL 06/19/2024 11:21 AM EST [facility] Comment:Supplemental ranges: <140 mg/dL before meals <180 mg/dL all other times of the day. Blood CAPILLARY BLOOD / Unknown 06/19/2024 11:20 AM EST 06/19/2024 11:21 AM EST Bobby Loja MD POINT OF CARE TEST O NIKA Performing Organization Address [facility] Co de Phone Number [facility] [place] [address] * POC, GLUCOSE (06/19/2024 7:21 AM EST) Glucometer, POC 125 65 - 199 mg/dL 06/19/2024 7:21 AM EST [facility] Comment:Supplemental ranges: <140 mg/dL before meals <180 mg/dL all other times of the day. Blood CAPILLARY BLOOD / Unknown 06/19/2024 7:21 AM EST 06/19/2024 7:22 AM EST Bobby Loja MD POINT OF CARE TEST Abimael MAHER Performing Organization Address [facility] Co de Phone Number [facility] [place] [address] * POC, GLUCOSE (06/19/2024 4:52 AM EST) [...] CARE TEST O NIKA Performing Organization Address [facility] Co de Phone Number [facility] [place] [address] * POC, GLUCOSE (06/19/2024 4:13 AM EST) Glucometer, POC 67 65 - 199 mg/dL 06/19/2024 4:13 AM EST [facility] Comment:Supplemental ranges: <140 mg/dL before meals <180 mg/dL all other times of the day. Blood CAPILLARY BLOOD / Unknown 06/19/2024 4:13 AM EST 06/19/2024 4:13 AM EST Bobby Loja MD POINT OF CARE TEST O NIKA Performing Organization Address [facility] Co de Phone Number [facility] [place] [address] * (ABNORMAL) POC, GLUCOSE (06/19/2024 3:48 AM EST) Glucometer, POC 51(LLL) 65 - 199 mg/dL 06/19/2024 3:48 AM EST [facility] Comment:Supplemental ranges: <140 mg/dL before meals <180 mg/dL all other times of the day. Blood CAPILLARY BLOOD / Unknown 06/19/2024 3:48 AM EST 06/19/2024 3:48 AM EST Bobby Loja MD POINT OF CARE TEST O NIKA Performing Organization Address [facility] Co de Phone Number [facility] [place] [address] * (ABNORMAL) Basic Metabolic Panel (06/19/2024 3:44 [...] - 145 mMol/L 06/19/2024 4:48 AM EST [facility] Potassium 3.6 3.5 - 5.0 mMol/L 06/19/2024 4:48 AM EST [facility] Chloride 100 98 - 107 mMol/L 06/19/2024 4:48 AM EST [facility] Carbon [...] CHEMISTRY ORDERABL ES [facility] [place] [address] * POC, GLUCOSE (06/19/2024 12:23 AM EST) Glucometer, POC 82 65 - 199 mg/dL 06/19/2024 12:23 AM EST [facility] Comment:Supplemental ranges: <140 mg/dL before meals <180 mg/dL all other times of the day. Blood CAPILLARY BLOOD / Unknown 06/19/2024 12:23 AM EST 06/19/2024 12:23 AM EST Bobby Loja MD POINT OF CARE TEST O NIKA Performing Organization Address [facility] Co de Phone Number [facility] [place] [address] * POC, GLUCOSE (06/18/2024 11:08 PM EST) Glucometer, POC 73 65 - 199 mg/dL 06/18/2024 11:08 PM EST [facility] Comment:Supplemental ranges: <140 mg/dL before meals <180 mg/dL all other times of the day. Blood CAPILLARY BLOOD / Unknown 06/18/2024 11:08 PM EST 06/18/2024 11:08 PM EST Bobby Loja MD POINT OF CARE TEST Abimael MAHER Performing Organization Address [facility] de Phone Number [facility] [place] [address] * POC, GLUCOSE (06/18/2024 7:32 PM EST) Glucometer, POC 167 65 - 199 mg/dL 06/18/2024 7:32 PM EST [facility] Comment:Supplemental ranges: <140 mg/dL before meals <180 mg/dL all other times of the day. Blood CAPILLARY BLOOD / Unknown 06/18/2024 7:32 PM EST 06/18/2024 7:32 PM EST Bobby Loja MD POINT OF CARE TEST O NIKA Performing Organization Address [facility] Co de Phone Number [facility] [place] [address] * POC, GLUCOSE (06/18/2024 6:08 PM EST) [...] CARE TEST O NIKA Performing Organization Address [facility] Co de Phone Number [facility] [place] [address] * POC, GLUCOSE (06/18/2024 4:17 PM EST) [...] CARE TEST O NIKA Performing Organization Address [facility] Co de Phone Number [facility] [place] [address] * POC, GLUCOSE (06/18/2024 12:09 PM EST) [...] CARE TEST O NIKA Performing Organization Address [facility] Co de Phone Number [facility] [place] [address] * POC, GLUCOSE (06/18/2024 7:49 AM EST) Glucometer, POC 125 65 - 199 mg/dL 06/18/2024 7:50 AM EST [facility] Comment:Supplemental ranges: <140 mg/dL before meals <180 mg/dL all other times of the day. Blood CAPILLARY BLOOD / Unknown 06/18/2024 7:49 AM EST 06/18/2024 7:50 AM EST Bobby Loja MD POINT OF CARE TEST O NIKA [facility] [place] [address] * (ABNORMAL) Basic Metabolic Panel (06/18/2024 4:19 [...] APRN CHEMISTRY ORDERABL ES Performing Organization Address [facility] Co de Phone Number [facility] [place] [address] * POC, GLUCOSE (06/18/2024 3:50 AM EST) Glucometer, POC 99 65 - 199 mg/dL 06/18/2024 3:51 AM EST [facility] Comment:Supplemental ranges: <140 mg/dL before meals <180 mg/dL all other times of the day. Blood CAPILLARY BLOOD / Unknown 06/18/2024 3:50 AM EST 06/18/2024 3:51 AM EST Bobby Loja MD POINT OF CARE TEST O RDERABLES [facility] [place] [address] * POC, GLUCOSE (06/17/2024 11:10 PM EST) Glucometer, POC 92 65 - 199 mg/dL 06/17/2024 11:10 PM EST [facility] Comment:Supplemental ranges: <140 mg/dL before meals <180 mg/dL all other times of the day. Blood CAPILLARY BLOOD / Unknown 06/17/2024 11:10 PM EST 06/17/2024 11:10 PM EST Bobby Loja MD POINT OF CARE TEST O NIKA Performing Organization Address [facility] Co de Phone Number [facility] [place] [address] * POC, GLUCOSE (06/17/2024 7:54 PM EST) Glucometer, POC 126 65 - 199 mg/dL 06/17/2024 7:54 PM EST [facility] Comment:Supplemental ranges: <140 mg/dL before meals <180 mg/dL all other times of the day. Blood CAPILLARY BLOOD / Unknown 06/17/2024 7:54 PM EST 06/17/2024 7:54 PM EST Bobby Loja MD POINT OF CARE TEST O NIKA Performing Organization Address [facility] de Phone Number [facility] [place] [address] * POC, GLUCOSE (06/17/2024 4:07 PM EST) Glucometer, POC 141 65 - 199 mg/dL 06/17/2024 4:12 PM EST [facility] Comment:Supplemental ranges: <140 mg/dL before meals <180 mg/dL all other times of the day. Blood CAPILLARY BLOOD / Unknown 06/17/2024 4:07 PM EST 06/17/2024 4:12 PM EST Bobby Loja MD POINT OF CARE TEST O NIKA Performing Organization Address [facility] Co de Phone Number [facility] [place] [address] * XR Chest PA & Lateral (Generic) (06/17/2024 1:46 PM EST) WORKSTATION ID [id number] RAD Anatomical Region Laterality Modality Chest N/A [...] who have questions please contact the health primary care md that requested your imaging first. ? Electronically signed by: Josselyn Spence MD, [facility] ([phone]), at 06/17/2024 4:49 PM Narrative 06/17/2024 4:49 [...] patients who have questions please contactthe health primary care md that requested your imaging first. Electronically signed by: Josselyn Spence MD, [facility]([phone]), at 06/17/2024 4:49 PM Keilamariangel [facility] [employer] IMG DX ORDERABLES * (ABNORMAL) POC, GLUCOSE [...] CARE TEST O NIKA Performing Organization Address City/[facility]/ZIP Co de Phone Number [facility] [place] [address] * POC, GLUCOSE (06/17/2024 7:49 AM EST) Glucometer, POC 141 65 - 199 mg/dL 06/17/2024 7:55 AM EST [facility] Comment:Supplemental ranges: <140 mg/dL before meals <180 mg/dL all other times of the day. Blood CAPILLARY BLOOD / Unknown 06/17/2024 7:49 AM EST 06/17/2024 7:55 AM EST Bobby Loja MD POINT OF CARE TEST O NIKA [facility] [place] [address] * POC, GLUCOSE (06/17/2024 4:16 AM EST) Glucometer, POC 139 65 - 199 mg/dL 06/17/2024 4:16 AM EST [facility] Comment:Supplemental ranges: <140 mg/dL before meals <180 mg/dL all other times of the day. Blood CAPILLARY BLOOD / Unknown 06/17/2024 4:16 AM EST 06/17/2024 4:17 AM EST Bobby Loja MD POINT OF CARE TEST O RDERABLES [facility] [place] [address] * Lactate, Whole Blood (06/17/2024 2:39 AM EST) [facility] Lactate, Whole Blood 1.3 0.5 - 2.2 mmol/L 06/17/2024 2:46 AM EST [facility] Blood VENOUS BLOOD SPECIMEN / Unknown Venipuncture / Unknown 06/17/2024 2:39 AM EST 06/17/2024 2:43 AM EST Bobby Loja MD CHEMISTRY ORDERABLES Performing Organization Address City/[facility]/ZIP Co de Phone Number [facility] [place] [address] * (ABNORMAL) Hemogram (06/17/2024 2:39 AM EST) [facility] White Blood Cell 13.53(H) 4.00 - 9.50 x10(3)/mc L 06/17/2024 2:53 AM EST [facility] Red Blood Cell 3.55(L) 4.58 - 5.54 x10(6)/mc L 06/17/2024 2:53 AM EST [facility] Hemoglobin 10.8(L) 13.7 - 16.5 g/dL 06/17/2024 2:53 AM [facility] Hematocrit 33.0(L) 40.5 - 48.5 % 06/17/2024 2:53 AM EST [facility] Mean Cell Volume 93.0 [...] HEMATOLOGY ORDERABLE S [facility] [place] [address] * (ABNORMAL) Basic Metabolic Panel (06/17/2024 2:39 AM EST) Glucose 149 65 - 199 mg/dL 06/17/2024 3:14 AM EST [facility] Comment:Glucose [...] 2:39 AM EST 06/17/2024 2:43 AM EST Bobyb Loja MD CHEMISTRY ORDERABLES [facility] [place] [address] * (ABNORMAL) POC, GLUCOSE (06/17/2024 12:13 AM EST) Glucometer, POC 211(H) 65 - 199 mg/dL 06/17/2024 12:13 AM EST [facility] Comment:Supplemental ranges: <140 mg/dL before meals <180 mg/dL all other times of the day. Blood CAPILLARY BLOOD / Unknown 06/17/2024 12:13 AM EST 06/17/2024 12:14 AM EST Bobby Loja MD POINT OF CARE TEST O NIKA Performing Organization Address [facility] Co de Phone Number [facility] [place] [address] * (ABNORMAL) POC, GLUCOSE (06/16/2024 7:22 PM EST) Glucometer, POC 229(H) 65 - 199 mg/dL 06/16/2024 7:22 PM EST [facility] Comment:Supplemental ranges: <140 mg/dL before meals <180 mg/dL all other times of the day. Blood CAPILLARY BLOOD / Unknown 06/16/2024 7:22 PM EST 06/16/2024 7:22 PM EST Bobby Loja MD POINT OF CARE TEST Abimael MAHER Performing Organization Address [facility] Co de Phone Number [facility] [place] [address] * (ABNORMAL) POC, GLUCOSE (06/16/2024 6:14 PM EST) Glucometer, POC 220(H) 65 - 199 mg/dL 06/16/2024 6:14 PM EST [facility] Comment:Supplemental ranges: <140 mg/dL before meals <180 mg/dL all other times of the day. Blood CAPILLARY BLOOD / Unknown 06/16/2024 6:14 PM EST 06/16/2024 6:14 PM EST Bobby Loja MD POINT OF CARE TEST O RDBECKIE Performing Organization Address [facility] Co de Phone Number [facility] [place] [address] * Lactate, Whole Blood (06/16/2024 6:14 PM EST) Lactate, Whole Blood 1.8 0.5 - 2.2 mmol/L 06/16/2024 6:27 PM EST [facility] Blood VENOUS BLOOD SPECIMEN / Unknown Venipuncture / Unknown 06/16/2024 6:14 PM EST 06/16/2024 6:25 PM EST Bobby Loja MD CHEMISTRY ORDERABLES Performing Organization Address [facility] Co de Phone Number [facility] [place] [address] * (ABNORMAL) POC, GLUCOSE (06/16/2024 4:14 PM EST) Glucometer, POC 240(H) 65 - 199 mg/dL 06/16/2024 4:14 PM EST [facility] Comment:Supplemental ranges: <140 mg/dL before meals <180 mg/dL all other times of the day. Blood CAPILLARY BLOOD / Unknown 06/16/2024 4:14 PM EST 06/16/2024 4:14 PM EST Bobyb Loja MD POINT OF CARE TEST O NIKA Performing Organization Address [facility] Co de Phone Number [facility] [place] [address] * POC, GLUCOSE (06/16/2024 11:49 AM EST) Glucometer, POC 199 65 - 199 mg/dL 06/16/2024 11:49 AM EST [facility] Comment:Supplemental ranges: <140 mg/dL before meals <180 mg/dL all other times of the day. Blood CAPILLARY BLOOD / Unknown 06/16/2024 11:49 AM EST 06/16/2024 11:49 AM EST Bobby Loja MD POINT OF CARE TEST O RDERABLES [facility] [place] [address] * (ABNORMAL) Hemogram (06/16/2024 11:44 AM EST) [...] HEMATOLOGY ORDERABLE S [facility] [place] [address] * Lactate, Whole Blood (06/16/2024 9:02 AM EST) Lactate, Whole Blood 1.8 0.5 - 2.2 mmol/L 06/16/2024 9:19 AM EST [facility] Blood VENOUS BLOOD SPECIMEN / Unknown Venipuncture / Unknown 06/16/2024 9:02 AM EST 06/16/2024 9:17 AM EST Narrative Authorizing Provider Result Saranya Loja MD CHEMISTRY ORDERABLES Performing Organization Address [facility]/ZIP Co de Phone Number [facility] [place] [address] * POC, GLUCOSE (06/16/2024 7:44 AM EST) [...] CARE TEST O RDERABLES Performing Organization Address City/[facility]/ZIP Co de Phone Number [facility] [place] [address] * POC, GLUCOSE (06/16/2024 4:01 AM EST) Glucometer, POC 158 65 - 199 mg/dL 06/16/2024 4:01 AM EST [facility] Comment:Supplemental ranges: <140 mg/dL before meals <180 mg/dL all other times of the day. Blood CAPILLARY BLOOD / Unknown 06/16/2024 4:01 AM EST 06/16/2024 4:01 AM EST Bobby Loja MD POINT OF CARE TEST O RDERABLES [facility] [place] [address] * (ABNORMAL) Basic Metabolic Panel (06/16/2024 2:23 [...] MD CHEMISTRY ORDERABLES Performing Organization Address [facility]/ZIP Co de Phone Number [facility] [place] [address] * POC, GLUCOSE (06/16/2024 2:21 AM EST) Glucometer, POC 176 65 - 199 mg/dL 06/16/2024 2:31 AM EST [facility] Comment:Supplemental ranges: <140 mg/dL before meals <180 mg/dL all other times of the day. Blood CAPILLARY BLOOD / Unknown 06/16/2024 2:21 AM EST 06/16/2024 2:31 AM EST Bobby Loja MD POINT OF CARE TEST O RDERABLES Performing Organization Address [facility]/ZIP Co de Phone Number [facility] [place] [address] * (ABNORMAL) POC, GLUCOSE (06/16/2024 12:09 AM [...] CARE TEST O NIKA Performing Organization Address City/[facility]/ZIP Co de Phone Number [facility] [place] [address] * (ABNORMAL) POC, GLUCOSE (06/15/2024 10:07 PM EST) Glucometer, POC 320(H) 65 - 199 mg/dL 06/15/2024 10:07 PM EST [facility] Comment:Supplemental ranges: <140 mg/dL before meals <180 mg/dL all other times of the day. Blood CAPILLARY BLOOD / Unknown 06/15/2024 10:07 PM EST 06/15/2024 10:07 PM EST Bobby Loja MD POINT OF CARE TEST O NIKA Performing Organization Address [facility]/ZIP Co de Phone Number [facility] [place] [address] * (ABNORMAL) POC, GLUCOSE (06/15/2024 7:56 PM [...] TEST O NIKA [facility] [place] [address] * (ABNORMAL) POC, GLUCOSE (06/15/2024 7:52 PM EST) Glucometer, POC 288(H) 65 - 199 mg/dL 06/15/2024 7:52 PM EST [facility] Comment:Supplemental ranges: <140 mg/dL before meals <180 mg/dL all other times of the day. Blood CAPILLARY BLOOD / Unknown 06/15/2024 7:52 PM EST 06/15/2024 7:52 PM EST Bobby Loja MD POINT OF CARE TEST O NIKA [facility] [place] [address] * POC, GLUCOSE (06/15/2024 4:21 PM EST) Glucometer, POC 192 65 - 199 mg/dL 06/15/2024 4:21 PM EST [facility] Comment:Supplemental ranges: <140 mg/dL before meals <180 mg/dL all other times of the day. Blood CAPILLARY BLOOD / Unknown 06/15/2024 4:21 PM EST 06/15/2024 4:21 PM EST Bobby Loja MD POINT OF CARE TEST O NIKA Performing Organization Address [facility]/ZIP Co de Phone Number [facility] [place] [address] * POC, GLUCOSE (06/15/2024 3:27 PM EST) Glucometer, POC 155 65 - 199 mg/dL 06/15/2024 3:27 PM EST [facility] Comment:Supplemental ranges: <140 mg/dL before meals <180 mg/dL all other times of the day. Blood CAPILLARY BLOOD / Unknown 06/15/2024 3:27 PM EST 06/15/2024 3:27 PM EST Bobby Loja MD POINT OF CARE TEST O NIKA [facility] [place] [address] * POC, GLUCOSE (06/15/2024 2:23 PM EST) Glucometer, POC 160 65 - 199 mg/dL 06/15/2024 2:23 PM EST [facility] Comment:Supplemental ranges: <140 mg/dL before meals <180 mg/dL all other times of the day. Blood CAPILLARY BLOOD / Unknown 06/15/2024 2:23 PM EST 06/15/2024 2:23 PM EST Bobby Loja MD POINT OF CARE TEST O NIKA Performing Organization Address City/[facility]/ZIP Co de Phone Number [facility] [place] [address] * POC, GLUCOSE (06/15/2024 1:26 PM EST) Glucometer, POC 167 65 - 199 mg/dL 06/15/2024 1:26 PM EST [facility] Comment:Supplemental ranges: <140 mg/dL before meals <180 mg/dL all other times of the day. Blood CAPILLARY BLOOD / Unknown 06/15/2024 1:26 PM EST 06/15/2024 1:26 PM EST Bobby Loja MD POINT OF CARE TEST O NIKA Performing Organization Address City/[facility]/ZIP Co de Phone Number [facility] [place] [address] * (ABNORMAL) POC, GLUCOSE (06/15/2024 12:55 PM EST) Glucometer, POC 210(H) 65 - 199 mg/dL 06/15/2024 12:55 PM EST [facility] Comment:Supplemental ranges: <140 mg/dL before meals <180 mg/dL all other times of the day. Blood CAPILLARY BLOOD / Unknown 06/15/2024 12:55 PM EST 06/15/2024 12:55 PM EST Bobby Loja MD POINT OF CARE TEST O NIKA Performing Organization Address City/[facility]/ZIP Co de Phone Number [facility] [place] [address] * (ABNORMAL) POC, GLUCOSE (06/15/2024 11:29 AM EST) Glucometer, POC 220(H) 65 - 199 mg/dL 06/15/2024 11:29 AM EST [facility] Comment:Supplemental ranges: <140 mg/dL before meals <180 mg/dL all other times of the day. Blood CAPILLARY BLOOD / Unknown 06/15/2024 11:29 AM EST 06/15/2024 11:29 AM EST Bobby Loja MD POINT OF CARE TEST O INKA Performing Organization Address [facility]/ZIP Co de Phone Number [facility] [place] [address] * (ABNORMAL) Basic Metabolic Panel (06/15/2024 11:23 [...] Loja MD CHEMISTRY ORDERABLES Performing Organization Address City/[facility]/ZIP Co de Phone Number [facility] [place] [address] * POC, GLUCOSE (06/15/2024 10:29 AM EST) [facility] Signature Glucometer, POC 189 65 - 199 mg/dL 06/15/2024 10:29 AM EST [facility] Comment:Supplemental ranges: <140 mg/dL before meals <180 mg/dL all other times of the day. Blood CAPILLARY BLOOD / Unknown 06/15/2024 10:29 AM EST 06/15/2024 10:29 AM EST Bobby Loja MD POINT OF CARE TEST O RDERABLES [facility] [place] [address] * POC, GLUCOSE (06/15/2024 9:45 AM EST) Glucometer, POC 178 65 - 199 mg/dL 06/15/2024 9:45 AM EST [facility] Comment:Supplemental ranges: <140 mg/dL before meals <180 mg/dL all other times of the day. Blood CAPILLARY BLOOD / Unknown 06/15/2024 9:45 AM EST 06/15/2024 9:45 AM EST Bobby Loja MD POINT OF CARE TEST O NIKA Performing Organization Address City/[facility]/ZIP Co de Phone Number [facility] [place] [address] * (ABNORMAL) Cooximetry, POC (06/15/2024 9:31 AM [...] TEST O NIKA [facility] [place] [address] * Cooximetry, POC (06/15/2024 9:22 AM EST) [...] TEST O RDERABLES [facility] [place] [address] * (ABNORMAL) Blood Gas, Arterial POC (06/15/2024 [...] TEST O RDERABLES [facility] [place] [address] * (ABNORMAL) POC, GLUCOSE (06/15/2024 8:37 AM EST) Glucometer, POC 204(H) 65 - 199 mg/dL 06/15/2024 8:37 AM EST [facility] Comment:Supplemental ranges: <140 mg/dL before meals <180 mg/dL all other times of the day. Blood CAPILLARY BLOOD / Unknown 06/15/2024 8:37 AM EST 06/15/2024 8:37 AM EST Bobby Loja MD POINT OF CARE TEST O NIKA Performing Organization Address [facility] Co de Phone Number [facility] [place] [address] * POC, GLUCOSE (06/15/2024 7:37 AM EST) Glucometer, POC 199 65 - 199 mg/dL 06/15/2024 7:37 AM EST [facility] Comment:Supplemental ranges: <140 mg/dL before meals <180 mg/dL all other times of the day. Blood CAPILLARY BLOOD / Unknown 06/15/2024 7:37 AM EST 06/15/2024 7:38 AM EST Bobby Loja MD POINT OF CARE TEST Abimael MAHER Performing Organization Address [facility] Co de Phone Number [facility] [place] [address] * (ABNORMAL) POC, GLUCOSE (06/15/2024 7:01 AM EST) Glucometer, POC 203(H) 65 - 199 mg/dL 06/15/2024 7:01 AM EST [facility] Comment:Supplemental ranges: <140 mg/dL before meals <180 mg/dL all other times of the day. Blood CAPILLARY BLOOD / Unknown 06/15/2024 7:01 AM EST 06/15/2024 7:01 AM EST Bobby Loja MD POINT OF CARE TEST Abimael MAHER [facility] [place] [address] * XR Chest One View (06/15/2024 6:31 AM EST) WORKSTATION ID [id number] RAD Anatomical Region Laterality Modality Chest N/A [...] who have questions please contact the health primary care md that requested your imaging first. ? Electronically signed by: Stuart Aponte MD, [facility] ??([phone]), at 06/15/2024 10:38 AM Narrative 06/15/2024 10:38 [...] patients who have questions please contactthe health primary care md that requested your imaging first. Bobby Loja [...] CARE TEST O NIKA Performing Organization Address City/[facility] Co de Phone Number [facility] [place] [address] * POC, GLUCOSE (06/15/2024 5:06 AM EST) [...] CARE TEST O RDERABLES Performing Organization Address City/[facility]/ZIP Co de Phone Number [facility] [place] [address] * POC, GLUCOSE (06/15/2024 4:05 AM EST) Glucometer, POC 160 65 - 199 mg/dL 06/15/2024 4:06 AM EST [facility] Comment:Supplemental ranges: <140 mg/dL before meals <180 mg/dL all other times of the day. Blood CAPILLARY BLOOD / Unknown 06/15/2024 4:05 AM EST 06/15/2024 4:06 AM EST Bobby Loja MD POINT OF CARE TEST O NIKA Performing Organization Address [facility] Co de Phone Number [facility] [place] [address] * POC, GLUCOSE (06/15/2024 3:07 AM EST) Glucometer, POC 151 65 - 199 mg/dL 06/15/2024 3:07 AM EST [facility] Comment:Supplemental ranges: <140 mg/dL before meals <180 mg/dL all other times of the day. Blood CAPILLARY BLOOD / Unknown 06/15/2024 3:07 AM EST 06/15/2024 3:07 AM EST Bobby Loja MD POINT OF CARE TEST O RDERAPIETER Performing Organization Address [facility]/ZIP Co de Phone Number [facility] [place] [address] * (ABNORMAL) Basic Metabolic Panel (06/15/2024 1:48 AM EST) Glucose 140 65 - 199 mg/dL 06/15/2024 2:38 AM EST [facility] Comment:Glucose Concentratio n >=200 mg/dL plus symptoms is consistent with Diabetes Mellitus. Blood Urea Nitrogen 21(H) 10 - 20 mg/dL 06/15/2024 2:38 AM EST [facility] Creatinine 1.27 0.80 - 1.50 mg/dL 06/15/2024 2:38 AM EST [facility] Sodium 140 135 - [...] MD CHEMISTRY ORDERABLES [facility] [place] [address] * (ABNORMAL) CBC (with Diff) (06/15/2024 1:48 [...] 6.10 x10(3)/mc L 06/15/2024 2:13 AM EST [facility] Lymph % 8.0 % 06/15/2024 2:13 AM EST [facility] Lymph Absolute 0.94 0.90 [...] HEMATOLOGY ORDERABLE S [facility] [place] [address] * (ABNORMAL) Troponin - Single (06/15/2024 1:48 [...] [facility] Test Catalog Troponin - [email or web address].org/catalogs/[email or web address] Reference: Fourth [place] Definition of Myocardial Infarction. Journal of the [place] [employer] 2018;72:7073-5591 Blood VENOUS BLOOD SPECIMEN / Unknown Venipuncture / Unknown 06/15/2024 1:48 AM EST 06/15/2024 1:52 AM EST Bobby Loja MD CHEMISTRY ORDERABLES [facility] [place] [address] * (ABNORMAL) Blood Gas, Arterial POC (06/15/2024 1:46 AM EST) Pathologist [facility] [place] pH, Arterial 7.33(L) 7.35 - 7.45 06/15/2024 [...] CARE TEST O NIKA Performing Organization Address City/[facility]/ZIP Co de Phone Number [facility] [place] [address] * POC, GLUCOSE (06/15/2024 1:05 AM EST) Glucometer, POC 116 65 - 199 mg/dL 06/15/2024 1:05 AM EST [facility] Comment:Supplemental ranges: <140 mg/dL before meals <180 mg/dL all other times of the day. Blood CAPILLARY BLOOD / Unknown 06/15/2024 1:05 AM EST 06/15/2024 1:05 AM EST Bobby Loja MD POINT OF CARE TEST O NIKA Performing Organization Address [facility] Co de Phone Number [facility] [place] [address] * POC, GLUCOSE (06/15/2024 12:16 AM EST) Glucometer, POC 135 65 - 199 mg/dL 06/15/2024 12:16 AM EST [facility] Comment:Supplemental ranges: <140 mg/dL before meals <180 mg/dL all other times of the day. Blood CAPILLARY BLOOD / Unknown 06/15/2024 12:16 AM EST 06/15/2024 12:16 AM EST Bobby Loja MD POINT OF CARE TEST O NIKA Performing Organization Address City/[facility]/ZIP Co de Phone Number [facility] [place] [address] * Potassium (06/14/2024 11:28 PM EST) Potassium 4.1 3.5 - 5.0 mMol/L 06/14/2024 11:54 PM EST [facility] Blood VENOUS BLOOD SPECIMEN / Unknown Venipuncture / Unknown 06/14/2024 11:28 PM EST 06/14/2024 11:34 PM EST Bobby Loja MD CHEMISTRY ORDERABLES [facility] [place] [address] * POC, GLUCOSE (06/14/2024 10:58 PM EST) Glucometer, POC 126 65 - 199 mg/dL 06/14/2024 10:59 PM EST [facility] Comment:Supplemental ranges: <140 mg/dL before meals <180 mg/dL all other times of the day. Blood CAPILLARY BLOOD / Unknown 06/14/2024 10:58 PM EST 06/14/2024 10:59 PM EST Bobby Loja MD POINT OF CARE TEST O RDERABLES Performing Organization Address City/[facility]/ZIP Co de Phone Number [facility] [place] [address] * POC, GLUCOSE (06/14/2024 9:55 PM EST) Glucometer, POC 152 65 - 199 mg/dL 06/14/2024 9:56 PM EST [facility] Comment:Supplemental ranges: <140 mg/dL before meals <180 mg/dL all other times of the day. Blood CAPILLARY BLOOD / Unknown 06/14/2024 9:55 PM EST 06/14/2024 9:56 PM EST Bobby Loja MD POINT OF CARE TEST O RDBECKIE [facility] [place] [address] * POC, GLUCOSE (06/14/2024 8:54 PM EST) Glucometer, POC 151 65 - 199 mg/dL 06/14/2024 8:54 PM EST [facility] Comment:Supplemental ranges: <140 mg/dL before meals <180 mg/dL all other times of the day. Blood CAPILLARY BLOOD / Unknown 06/14/2024 8:54 PM EST 06/14/2024 8:54 PM EST Bobby Loja MD POINT OF CARE TEST O RDERAPIETER Performing Organization Address City/[facility]/ZIP Co de Phone Number [facility] [place] [address] * POC, GLUCOSE (06/14/2024 7:51 PM EST) Glucometer, POC 169 65 - 199 mg/dL 06/14/2024 7:52 PM EST [facility] Comment:Supplemental ranges: <140 mg/dL before meals <180 mg/dL all other times of the day. Blood CAPILLARY BLOOD / Unknown 06/14/2024 7:51 PM EST 06/14/2024 7:52 PM EST Bobby Loja MD POINT OF CARE TEST O RDERAPIETER Performing Organization Address City/[facility]/ZIP Co de Phone Number [facility] [place] [address] * POC, GLUCOSE (06/14/2024 6:49 PM EST) Glucometer, POC 194 65 - 199 mg/dL 06/14/2024 6:50 PM EST [facility] Comment:Supplemental ranges: <140 mg/dL before meals <180 mg/dL all other times of the day. Blood CAPILLARY BLOOD / Unknown 06/14/2024 6:49 PM EST 06/14/2024 6:50 PM EST Bobby Loja MD POINT OF CARE TEST O RDERAPIETER [facility] [place] [address] * (ABNORMAL) Hemoglobin (06/14/2024 6:19 PM EST) [facility] Hemoglobin 13.1(L) 13.7 - 16.5 g/dL 06/14/2024 7:08 PM EST [facility] Blood VENOUS BLOOD SPECIMEN / Unknown Venipuncture / Unknown 06/14/2024 6:19 PM EST 06/14/2024 6:28 PM EST Bobby Loja MD HEMATOLOGY ORDERABLE S Performing Organization Address [facility] Co tx Phone Number [facility] [place] [address] * Potassium (06/14/2024 6:19 PM EST) [facility] Potassium 3.9 3.5 - 5.0 mMol/L 06/14/2024 6:52 PM EST [facility] Blood VENOUS BLOOD SPECIMEN / Unknown Venipuncture / Unknown 06/14/2024 6:19 PM EST 06/14/2024 6:28 PM EST Bobby Loja MD CHEMISTRY ORDERABLES Performing Organization Address [facility] de Phone Number [facility] [place] [address] * (ABNORMAL) POC, GLUCOSE (06/14/2024 6:03 PM EST) [facility] Glucometer, POC 201(H) 65 - 199 mg/dL 06/14/2024 6:03 PM EST [facility] Comment:Supplemental ranges: <140 mg/dL before meals <180 mg/dL all other times of the day. Blood CAPILLARY BLOOD / Unknown 06/14/2024 6:03 PM EST 06/14/2024 6:03 PM EST Bobby Loja MD POINT OF CARE TEST O RDERABLES [facility] [place] [address] * (ABNORMAL) Blood Gas, Arterial POC (06/14/2024 [...] - 2.2 mmol/L 06/14/2024 4:52 PM EST [facility] Fraction of Inspired Oxygen 40 % 06/14/2024 4:52 PM EST [facility] PF Ratio 213 Ratio 06/14/2024 4:52 PM EST [facility] Comment:PF [...] CARE TEST O NIKA Performing Organization Address City/[facility]/ZIP Co de Phone Number [facility] [place] [address] * POC, GLUCOSE (06/14/2024 4:00 PM EST) Pathologist [employer] Glucometer, POC 184 65 - 199 mg/dL 06/14/2024 4:01 PM EST [facility] Comment:Supplemental ranges: <140 mg/dL before meals <180 mg/dL all other times of the day. Blood CAPILLARY BLOOD / Unknown 06/14/2024 4:00 PM EST 06/14/2024 4:01 PM EST Bobby Loja MD POINT OF CARE TEST Abimael MAHER Performing Organization Address City/[facility]/[place] [address] * XR Chest One View (06/14/2024 3:05 PM EST) [employer] WORKSTATION ID [id number] RAD Anatomical Region Laterality Modality Chest N/A [...] who have questions please contact the health primary care md that requested your imaging first. ? Electronically signed by: Stuart Aponte MD, [facility] ??([phone]), at 06/14/2024 4:07 PM Narrative 06/14/2024 4:07 [...] patients who have questions please contactthe health primary care md that requested your imaging first. Bobby Loja MD IMG DX ORDERABLES * (ABNORMAL) Blood Gas, Arterial POC (06/14/2024 2:52 PM EST) pH, Arterial 7.28(LLL) 7.35 - 7.45 06/14/2024 2:53 PM EST [facility] PCO2, Arterial 50(H) 35 [...] CARE TEST O RDERABLES Performing Organization Address City/[facility]/ZIP Co de Phone Number [facility] [place] [address] * EKG 12 Lead (06/14/2024 2:46 PM EST) Ventricular rate 80 BPM MUSE SYSTEM Atrial Rate 80 BPM MUSE SYSTEM P-R Interval 120 ms MUSE SYSTEM QRS Duration 108 ms MUSE SYSTEM Q-T Interval 454 ms MUSE SYSTEM QTC Calculated (Bezet) 523 ms MUSE SYSTEM Calculated P [place] 70 degrees MUSE SYSTEM Calculated R [place] 56 degrees MUSE SYSTEM Calculated T [place] 50 degrees MUSE SYSTEM INTERPRETATION AV dual-paced rhythm Abnormal ECG When compared with ECG of 03-JUN-2024 01:45, Vent. rate has increased BY ??17 BPM Confirmed by MD Marisol, Shaheen ([id number]) on 06/15/2024 1:57:23 PM MUSE SYSTEM 06/14/2024 2:46 PM EST 06/15/2024 1:57 PM EST Bobby Loaj MD ECG ORDERABLES Performing Organization Address City/[facility]/ZIP Co de Phone Number MUSE SYSTEM * Prepare RBC (06/14/2024 2:27 PM EST) Status Information Returned [facility] Product Identification RBC [facility] Unit Number [id number] [facility] Product Code [id number] [facility] Unit Blood Type OPOS [facility] Specimen Expiration Date [facility] Volulme 350 [facility] Issue Date / Time [facility] Status [facility] Returned [facility] Product Identification RBC [facility] Unit Number [id number] [facility] Product Code [id number] [facility] Unit Blood Type OPOS [facility] Specimen Expiration Date [facility] Volulme 350 [facility] Issue Date / Time [facility] Blood 06/14/2024 6:2 5 AM EST Haja Byrnes MD BLOOD BANK PRODUCT O RDERAPIETER [facility] [place] [address] * (ABNORMAL) Cooximetry, POC (06/14/2024 1:52 PM [...] CARE TEST O NIKA Performing Organization Address City/[facility]/ZIP Co de Phone Number [facility] [place] [address] * (ABNORMAL) Blood Gas, Arterial POC (06/14/2024 12:47 PM EST) pH, Arterial 7.33(L) 7.35 - 7.45 06/14/2024 12:48 PM EST [facility] PCO2, Arterial 46(H) 35 - 45 mmHg 06/14/2024 12:48 PM EST [facility] PO2, Arterial 358(H) 85 [...] TEST O NIKA [facility] [place] [address] * (ABNORMAL) Cooximetry, POC (06/14/2024 12:42 PM [...] TEST O NIKA [facility] [place] [address] * (ABNORMAL) Platelet count (06/14/2024 12:30 PM EST) Platelet 73(L) 145 - 357 x10(3)/mcL 06/14/2024 12:54 PM EST [facility] Blood ARTERIAL BLOOD / Unknown 06/14/2024 12:30 PM EST Comment:Pre-op diagnosis: CAD Bobby Loja MD HEMATOLOGY ORDERABLE S Performing Organization Address City/[facility]/ZIP Co de Phone Number [facility] [place] [address] * (ABNORMAL) Hemoglobin and Hematocrit, blood (06/14/2024 [...] HEMATOLOGY ORDERABLE S Performing Organization Address [facility]/ZIP Co de Phone Number [facility] [place] [address] * APTT (06/14/2024 12:30 PM EST) Partial [...] MD HEMATOLOGY ORDERABLE S Performing Organization Address City/[facility]/ZIP Co de Phone Number [facility] [place] [address] * (ABNORMAL) Prothrombin Time (06/14/2024 12:30 PM [...] MD HEMATOLOGY ORDERABLE S Performing Organization Address City/[facility]/ZIP Co de Phone Number [facility] [place] [address] * Fibrinogen (06/14/2024 12:30 PM EST) Fibrinogen 211 200 - 393 mg/dL 06/14/2024 12:57 PM EST [facility] Comment: A fibrinogen level >100 mg/dL is adequate for hemostasis in most patients without underlying bleeding disorders. Blood ARTERIAL BLOOD / Unknown 06/14/2024 12:30 PM EST 06/14/2024 12:42 PM EST Comment:Pre-op diagnosis: CAD Bobby Loja MD HEMATOLOGY ORDERABLE S [facility] [place] [address] * (ABNORMAL) Blood Gas, Arterial POC (06/14/2024 [...] TEST O RDERABLES [facility] [place] [address] * (ABNORMAL) Blood Gas, Arterial POC (06/14/2024 [...] TEST O RDERABLES [facility] [place] [address] * (ABNORMAL) Blood Gas, Arterial POC (06/14/2024 [...] TEST O RDERABLES [facility] [place] [address] * (ABNORMAL) Scan, Peripheral Blood (06/14/2024 11:23 [...] HEMATOLOGY ORDERABLE S [facility] [place] [address] * (ABNORMAL) Platelet count (06/14/2024 11:23 AM EST) Platelet 86(L) 145 - 357 x10(3)/mcL 06/14/2024 11:59 AM EST [facility] Blood ARTERIAL BLOOD / Unknown 06/14/2024 11:23 AM EST Comment:Pre-op diagnosis: CAD Bobby Loja MD HEMATOLOGY ORDERABLE S [facility] [place] [address] * (ABNORMAL) Hemoglobin and Hematocrit, blood (06/14/2024 [...] HEMATOLOGY ORDERABLE S [facility] [place] [address] * (ABNORMAL) Blood Gas, Arterial POC (06/14/2024 [...] TEST O RDERABLES [facility] [place] [address] * (ABNORMAL) Blood Gas, Arterial POC (06/14/2024 [...] TEST O NIKA [facility] [place] [address] * (ABNORMAL) Blood Gas, Arterial POC (06/14/2024 [...] AM EST 06/14/2024 10:26 AM EST Haja yBrnes MD POINT OF CARE TEST O RDERABLES Performing Organization Address City/State/[facility] Co de Phone Number [facility] [place] [address] * Surgical Pathology (06/14/2024 9:53 AM EST) Case Report Surgical Pathology Report ? Case: [id number] ? Authorizing Provider: ??Bobby Loja MD ? [...] Inking: External surface inked black Sections/Process ing: [employer] sections in 4 cassettes labeled A1-A4. cmk B. Heart, Atrial Appendage, Left, . B - Labeled/Fixative : Heart, atrial appendage, left, fresh. Quantity/Size: Single, 3.3 x 1.5 x 0.8 cm. Tissue Description: Portion of heart tissue consisting of rodriguez-white, semitranslucent, smooth endocardium with rodriguez-brown muscular myocardium and thin translucent epicardium with adherent adipose tissue. No areas of discoloration identified. Sections/Process ing: [employer] sections in 1 cassette labeled B1. cmk [...] PATHOLOGY/CYTOLOGY O RDERABLES [facility] [place] [address] * Cooximetry, POC (06/14/2024 9:00 AM EST) [...] TEST O RDERABLES [facility] [place] [address] * (ABNORMAL) Blood Gas, Arterial POC (06/14/2024 [...] 0.3 <=1.5 % 06/14/2024 8:40 AM EST [facility] Sodium, Arterial 136 135 - 145 mmol/L 06/14/2024 8:40 AM [facility] Potassium, Arterial 4.2 3.5 - 5.0 mmol/L 06/14/2024 8:40 AM EST [facility] Chloride, Arterial 102 98 [...] CARE TEST O RDERABLES Performing Organization Address City/State/[facility] Co de Phone Number [facility] [place] [address] * Transesophageal Echo/OR (06/14/2024 7:20 AM EST) Anatomical Region Laterality Modality Cardiac Other 06/14/2024 7:20 AM EST Narrative 06/14/2024 4:36 PM EST Version: 2 Study ID: [id number] [id number] ?OR Transesophageal Echo Report Name: GEORGE MEHTA [...] of this mass after consultation with other hot metal crane operator experts and the decision was made [...] MD - 06/14/2024 Version: 2 Study ID: [id number] [address] [place] [id number] ORTransesophageal Echo Report Name: GEORGE MEHTA Study [...] of this mass after consultation with other hot metal crane operator experts and thedecision was made by [...] TEST O RDERABLES [facility] [place] [address] * POC, GLUCOSE (06/14/2024 4:30 AM EST) Glucometer, POC 85 65 - 199 mg/dL 06/14/2024 4:30 AM EST [facility] Comment:Supplemental ranges: <140 mg/dL before meals <180 mg/dL all other times of the day. Blood CAPILLARY BLOOD / Unknown 06/14/2024 4:30 AM EST 06/14/2024 4:30 AM EST Haja Byrnes MD POINT OF CARE TEST O RDERABLES Performing Organization Address City/[facility]/ZIP Co de Phone Number [facility] [place] [address] * (ABNORMAL) Heparin (unfractionated) Level (06/14/2024 12:12 AM EST) UF Heparin 1.02([facility]) IU/mL 06/14/2024 12:46 AM EST [facility] MD HEMATOLOGY ORDERABLE S Performing Organization Address City/[facility]/ZIP Co de Phone Number [facility] [place] [address] * (ABNORMAL) CBC (with Diff) (06/14/2024 12:12 [...] 6.10 x10(3)/mc L 06/14/2024 12:38 AM EST [facility] Lymph % 26.8 % [...] HEMATOLOGY ORDERABLE S [facility] [place] [address] * Magnesium (06/14/2024 12:12 AM EST) Magnesium 0.74 0.69 - 1.07 mMol/L 06/14/2024 12:57 AM [facility] Blood VENOUS BLOOD SPECIMEN / Unknown Venipuncture / Unknown 06/14/2024 12:12 AM EST 06/14/2024 12:29 AM EST Shahnaz Scanlon MD CHEMISTRY ORDERABLES [facility] [place] [address] * (ABNORMAL) Basic Metabolic Panel (06/14/2024 12:12 [...] Scanlon MD CHEMISTRY ORDERABLES Performing Organization Address [facility]/ZIP Co de Phone Number [facility] [place] [address] * Scan Doc: Implantable Devices (06/14/2024 12:00 [...] CARE TEST O RDERABLES Performing Organization Address City/[facility]/ZIP Co de Phone Number [facility] [place] [address] * (ABNORMAL) POC, GLUCOSE (06/13/2024 8:03 PM EST) Glucometer, POC 206(H) 65 - 199 mg/dL 06/13/2024 8:03 PM EST [facility] Comment:Supplemental ranges: <140 mg/dL before meals <180 mg/dL all other times of the day. Blood CAPILLARY BLOOD / Unknown 06/13/2024 8:03 PM EST 06/13/2024 8:03 PM EST Haja Byrnes MD POINT OF CARE TEST O RDERABLES Performing Organization Address City/[facility]/ZIP Co de Phone Number [facility] [place] [address] * Heparin (unfractionated) Level (06/13/2024 4:11 PM [...] HEMATOLOGY ORDERABLE S [facility] [place] [address] * ABORH RECHECK (06/13/2024 4:11 PM EST) ABORH Recheck O POSITIVE 06/13/2024 4:50 PM EST [facility] Blood VENOUS BLOOD SPECIMEN / Unknown Venipuncture / Unknown 06/13/2024 4:11 PM EST 06/13/2024 4:19 PM EST Haja Byrnes MD BLOOD BANK LAB ORDER EUSEBIA [facility] [place] [address] * (ABNORMAL) POC, GLUCOSE (06/13/2024 4:09 PM EST) [facility] Glucometer, POC 216(H) 65 - 199 mg/dL 06/13/2024 4:10 PM EST [facility] Comment:Supplemental ranges: <140 mg/dL before meals <180 mg/dL all other times of the day. Blood CAPILLARY BLOOD / Unknown 06/13/2024 4:09 PM EST 06/13/2024 4:10 PM EST Haja Byrnes MD POINT OF CARE TEST O RDERABLES [facility] [place] [address] * Type and screen ([facility]/CGP/RAFITA) (06/13/2024 11:53 AM EST) ABORH Type O POSITIVE 06/13/2024 1:16 PM EST [facility] PATIENT HISTORY Not Found 06/13/2024 1:16 PM EST [facility] Expires at [id number] on: 06/16/2024 06/13/2024 1:16 PM EST [facility] ANTIBODY SCREEN AUTOMATED Negative 06/13/2024 1:16 PM EST [facility] T&S only valid at [facility] 06/13/2024 1:16 PM EST [facility] Blood VENOUS BLOOD SPECIMEN / Unknown Venipuncture / Unknown 06/13/2024 11:53 AM EST 06/13/2024 11:56 AM EST Narrative [facility] - 06/13/2024 1:16 PM EST This Type and Screen result is only valid at the [facility] Haja Byrnes MD BLOOD BANK LAB ORDER EUSEBIA Performing Organization Address [facility] Co de Phone Number [facility] [place] [address] * POC, GLUCOSE (06/13/2024 11:50 AM EST) Glucometer, POC 178 65 - 199 mg/dL 06/13/2024 11:51 AM EST [facility] Comment:Supplemental ranges: <140 mg/dL before meals <180 mg/dL all other times of the day. Blood CAPILLARY BLOOD / Unknown 06/13/2024 11:50 AM EST 06/13/2024 11:51 AM EST Haja Byrnes MD POINT OF CARE TEST O RDERABLES Performing Organization Address [facility] de Phone Number [facility] [place] [address] * XR Chest One View (06/13/2024 10:35 AM EST) WORKSTATION ID [id number] [facility] Anatomical Region Laterality Modality Chest [...] who have questions please contact the health primary care md that requested your imaging first. ? Narrative [...] patients who have questions please contactthe health primary care md that requested your imaging first. Haja Byrnes MD IMG DX ORDERABLES * CARDIAC CATHETERIZATION (06/13/2024 9:02 AM EST) Anatomical Region Laterality Modality Other Narrative 06/15/2024 9:07 AM EST ?[facility] ? Cardiac Catheterization/Intervention Report ? Patient Name: Tyson, George L. ? Procedure Date: 06/13/2024 ? A #: [id number] ? Primary Physician: Nuha Shen I ? Case #: [id number] ? File Name: [id number] ? Catheterization Order Number: [id number] ? [facility] ? Final Report [place], [place] ? Patient Name: ? George LViry Mehta ? ID#: ?[id number] ? : ?1955 ? Procedure Date: ? June 13, 2024 ?Case #: ? [id number] ? Room: ? 6 ? Case Physician: [...] ?was designated as ASA Class IV. The [facility] clinical frailty scale is 5: ?Mildly [...] was Urgent. The indication for ?the laboratory veterinarian visit is ACS greater than 24 hrs [...] vascular ?ultrasound and IABP insertion in laboratory veterinarian. ? Nuha Shen M.D. ? Electronically Signed by: Nuha Shen M.D. ? Report Finalized: 06/15/2024 ??08:59 ? Procedure Note Nuha Shen MD - 06/15/2024 [facility] Cardiac Catheterization/Intervention Report Patient Name: George MehtaViry Procedure Date: 06/13/2024 A #: [id number] Primary Physician: Nuha Shen I Case #: [id number] File Name: [id number] Catheterization Order Number: [id number] [facility] FinalReport [place], [place] Patient Name: George Mehta ID#:[id number] :1955 Procedure Date: June 13, 2024 Case [...] was designated as ASA Class IV. The [facility] clinical frailty scale is5: Mildly Frail. [...] procedure was Urgent. The indicationfor the laboratory veterinarian visit is ACS greater than 24 hrs [...] angiography,vascular ultrasound and IABP insertion in laboratory veterinarian. Nuha Shen M.D. Electronically Signed by: Nuha [...] MD CHEMISTRY ORDERABLES [facility] [place] [address] * POC, GLUCOSE (06/13/2024 7:41 AM EST) Glucometer, POC 126 65 - 199 mg/dL 06/13/2024 7:41 AM EST [facility] Comment:Supplemental ranges: <140 mg/dL before meals <180 mg/dL all other times of the day. Blood CAPILLARY BLOOD / Unknown 06/13/2024 7:41 AM EST 06/13/2024 7:41 AM EST Ethel Carrillo MD POINT OF CARE TEST O NIKA Performing Organization Address [facility]/ZIP Co de Phone Number [facility] [place] [address] * POC, GLUCOSE (06/13/2024 3:25 AM EST) Glucometer, POC 99 65 - 199 mg/dL 06/13/2024 3:25 AM EST [facility] Comment:Supplemental ranges: <140 mg/dL before meals <180 mg/dL all other times of the day. Blood CAPILLARY BLOOD / Unknown 06/13/2024 3:25 AM EST 06/13/2024 3:25 AM EST Ethel Carrillo MD POINT OF CARE TEST Abimael MAHER Performing Organization Address City/[facility]/ZIP Co de Phone Number [facility] [place] [address] * Heparin (unfractionated) Level (06/13/2024 2:26 AM [...] MD HEMATOLOGY ORDERABLE S Performing Organization Address City/State/[facility] Co de Phone Number [facility] [place] [address] * (ABNORMAL) CBC (with Diff) (06/13/2024 2:26 [...] - 35.7 g/dL 06/13/2024 2:41 AM EST [facility] Platelet 194 145 - [...] 2:26 AM EST 06/13/2024 2:32 AM EST hSahnaz Scanlon MD HEMATOLOGY ORDERABLE S [facility] [place] [address] * Magnesium (06/13/2024 2:26 AM EST) Magnesium 0.78 0.69 - 1.07 mMol/L 06/13/2024 2:58 AM [facility] Blood VENOUS BLOOD SPECIMEN / Unknown Venipuncture / Unknown 06/13/2024 2:26 AM EST 06/13/2024 2:31 AM EST Shahnaz Scanlon MD CHEMISTRY ORDERABLES [facility] [place] [address] * (ABNORMAL) Basic Metabolic Panel (06/13/2024 2:26 AM EST) Glucose 121 65 - 199 mg/dL 06/13/2024 2:58 AM EST [facility] Comment:Glucose [...] 76 mL/min/1. 73 m?? 06/13/2024 2:58 AM [facility] Comment: This [...] MD CHEMISTRY ORDERABLES [facility] [place] [address] * POC, GLUCOSE (06/12/2024 11:53 PM EST) [facility] Signature Glucometer, POC 141 65 - 199 mg/dL 06/12/2024 11:54 PM EST [facility] Comment:Supplemental ranges: <140 mg/dL before meals <180 mg/dL all other times of the day. Blood CAPILLARY BLOOD / Unknown 06/12/2024 11:53 PM EST 06/12/2024 11:54 PM EST Ethel Carrillo MD POINT OF CARE TEST O NIKA Performing Organization Address City/[facility]/ZIP Co de Phone Number [facility] [place] [address] * POC, GLUCOSE (06/12/2024 7:32 PM EST) Glucometer, POC 158 65 - 199 mg/dL 06/12/2024 7:32 PM EST [facility] Comment:Supplemental ranges: <140 mg/dL before meals <180 mg/dL all other times of the day. Blood CAPILLARY BLOOD / Unknown 06/12/2024 7:32 PM EST 06/12/2024 7:32 PM EST Ethel Carrillo MD POINT OF CARE TEST O NIKA Performing Organization Address [facility] Co de Phone Number [facility] [place] [address] * POC, GLUCOSE (06/12/2024 3:41 PM EST) Glucometer, POC 113 65 - 199 mg/dL 06/12/2024 3:41 PM EST [facility] Comment:Supplemental ranges: <140 mg/dL before meals <180 mg/dL all other times of the day. Blood CAPILLARY BLOOD / Unknown 06/12/2024 3:41 PM EST 06/12/2024 3:41 PM EST Ethel Carrillo MD POINT OF CARE TEST O NIKA Performing Organization Address City/[facility] Co de Phone Number [facility] [place] [address] * Potassium (06/12/2024 2:19 PM EST) Potassium 4.5 3.5 - 5.0 mMol/L 06/12/2024 2:45 PM EST [facility] Blood VENOUS BLOOD SPECIMEN / Unknown Venipuncture / Unknown 06/12/2024 2:19 PM EST 06/12/2024 2:23 PM EST Shahnaz Scanlon MD CHEMISTRY ORDERABLES [facility] [place] [address] * (ABNORMAL) POC, GLUCOSE (06/12/2024 11:21 AM EST) Glucometer, POC 207(H) 65 - 199 mg/dL 06/12/2024 11:21 AM EST [facility] Comment:Supplemental ranges: <140 mg/dL before meals <180 mg/dL all other times of the day. Blood CAPILLARY BLOOD / Unknown 06/12/2024 11:21 AM EST 06/12/2024 11:22 AM EST Ethel Carrillo MD POINT OF CARE TEST O RDERABLES [facility] [place] [address] * POC, GLUCOSE (06/12/2024 8:00 AM EST) Glucometer, POC 169 65 - 199 mg/dL 06/12/2024 8:01 AM EST [facility] Comment:Supplemental ranges: <140 mg/dL before meals <180 mg/dL all other times of the day. Blood CAPILLARY BLOOD / Unknown 06/12/2024 8:00 AM EST 06/12/2024 8:01 AM EST Ethel Carrillo MD POINT OF CARE TEST O RDERABLES [facility] [place] [address] * POC, GLUCOSE (06/12/2024 4:25 AM EST) Pathologist [facility] Glucometer, POC 132 65 - 199 mg/dL 06/12/2024 4:26 AM EST [facility] Comment:Supplemental ranges: <140 mg/dL before meals <180 mg/dL all other times of the day. Blood CAPILLARY BLOOD / Unknown 06/12/2024 4:25 AM EST 06/12/2024 4:26 AM EST Ethel Carrillo MD POINT OF CARE TEST O RDERABLES Performing Organization Address [facility] Co de Phone Number [facility] [place] [address] * Heparin (unfractionated) Level (06/12/2024 3:03 AM EST) [facility] UF Heparin 0.55 IU/mL 06/12/2024 3:44 [...] HEMATOLOGY ORDERABLE S Performing Organization Address [facility] Co de Phone Number [facility] [place] [address] * (ABNORMAL) CBC (with Diff) (06/12/2024 3:03 AM EST) [facility] White Blood Cell 9.69(H) 4.00 - [...] HEMATOLOGY ORDERABLE S [facility] [place] [address] * Magnesium (06/12/2024 3:03 AM EST) Magnesium 0.79 0.69 - 1.07 mMol/L 06/12/2024 4:01 AM [facility] Blood VENOUS BLOOD SPECIMEN / Unknown Venipuncture / Unknown 06/12/2024 3:03 AM EST 06/12/2024 3:30 AM EST Shahnaz Scanlon MD CHEMISTRY ORDERABLES [facility] [place] [address] * (ABNORMAL) Basic Metabolic Panel (06/12/2024 3:03 [...] Scanlon MD CHEMISTRY ORDERABLES Performing Organization Address [facility] Co de Phone Number [facility] [place] [address] * POC, GLUCOSE (06/11/2024 11:56 PM EST) Glucometer, POC 135 65 - 199 mg/dL 06/11/2024 11:56 PM EST [facility] Comment:Supplemental ranges: <140 mg/dL before meals <180 mg/dL all other times of the day. Blood CAPILLARY BLOOD / Unknown 06/11/2024 11:56 PM EST 06/11/2024 11:56 PM EST Ethel Carrillo MD POINT OF CARE TEST O RDERABLES Performing Organization Address [facility]/ZIP Co de Phone Number [facility] [place] [address] * (ABNORMAL) POC, GLUCOSE (06/11/2024 8:25 PM EST) Glucometer, POC 210(H) 65 - 199 mg/dL 06/11/2024 8:26 PM EST [facility] Comment:Supplemental ranges: <140 mg/dL before meals <180 mg/dL all other times of the day. Blood CAPILLARY BLOOD / Unknown 06/11/2024 8:25 PM EST 06/11/2024 8:26 PM EST Ethel Carrillo MD POINT OF CARE TEST O NIKA Performing Organization Address [facility] Co de Phone Number [facility] [place] [address] * POC, GLUCOSE (06/11/2024 4:24 PM EST) Glucometer, POC 81 65 - 199 mg/dL 06/11/2024 4:24 PM EST [facility] Comment:Supplemental ranges: <140 mg/dL before meals <180 mg/dL all other times of the day. Blood CAPILLARY BLOOD / Unknown 06/11/2024 4:24 PM EST 06/11/2024 4:25 PM EST Ethel Carrillo MD POINT OF CARE TEST O NIKA Performing Organization Address [facility] de Phone Number [facility] [place] [address] * (ABNORMAL) POC, GLUCOSE (06/11/2024 11:08 AM EST) Glucometer, POC 233(H) 65 - 199 mg/dL 06/11/2024 11:08 AM EST [facility] Comment:Supplemental ranges: <140 mg/dL before meals <180 mg/dL all other times of the day. Blood CAPILLARY BLOOD / Unknown 06/11/2024 11:08 AM EST 06/11/2024 11:08 AM EST Ethel Carrillo MD POINT OF CARE TEST O NIKA Performing Organization Address [facility] Co de Phone Number [facility] [place] [address] * POC, GLUCOSE (06/11/2024 7:48 AM EST) Glucometer, POC 184 65 - 199 mg/dL 06/11/2024 7:49 AM EST [facility] Comment:Supplemental ranges: <140 mg/dL before meals <180 mg/dL all other times of the day. Blood CAPILLARY BLOOD / Unknown 06/11/2024 7:48 AM EST 06/11/2024 7:49 AM EST Melida aVldes MD POINT OF CARE TEST O RDERABLES Performing Organization Address City/[facility]/ZIP Co de Phone Number [facility] [place] [address] * Heparin (unfractionated) Level (06/11/2024 5:31 AM [...] HEMATOLOGY ORDERABLE S [facility] [place] [address] * POC, GLUCOSE (06/11/2024 3:57 AM EST) Glucometer, POC 132 65 - 199 mg/dL 06/11/2024 3:58 AM [facility] Comment:Supplemental ranges: <140 mg/dL before meals <180 mg/dL all other times of the day. Blood CAPILLARY BLOOD / Unknown 06/11/2024 3:57 AM EST 06/11/2024 3:58 AM EST Melida Valdes MD POINT OF CARE TEST O RDERABLES [facility] [place] [address] * (ABNORMAL) CBC (with Diff) (06/11/2024 2:13 [...] % 06/11/2024 2:[address] [facility] Neutrophil Absolute (ANC) - Automated 4.98 1.70 [...] 0.04 x10(3)/mc L 06/11/2024 2:26 AM EST [facility] Blood VENOUS BLOOD SPECIMEN / Unknown Venipuncture / Unknown 06/11/2024 2:13 AM EST 06/11/2024 2:19 AM EST Shahnaz Scanlon MD HEMATOLOGY ORDERABLE S Performing Organization Address City/[facility]/ZIP Co de Phone Number [facility] [place] [address] * Magnesium (06/11/2024 2:13 AM EST) Magnesium 0.83 0.69 - 1.07 mMol/L 06/11/2024 2:51 AM [facility] Blood VENOUS BLOOD SPECIMEN / Unknown Venipuncture / Unknown 06/11/2024 2:13 AM EST 06/11/2024 2:19 AM EST Shahnaz Scanlon MD CHEMISTRY ORDERABLES [facility] [place] [address] * (ABNORMAL) Basic Metabolic Panel (06/11/2024 2:13 AM EST) Glucose 148 65 - 199 mg/dL 06/11/2024 2:51 AM [facility] Comment:Glucose Concentratio n >=200 mg/dL plus symptoms is consistent with Diabetes Mellitus. Blood Urea Nitrogen 24(H) 10 - 20 mg/dL 06/11/2024 2:51 AM EST [facility] Creatinine 1.06 0.80 - 1.50 mg/dL 06/11/2024 2:51 AM [facility] Sodium 134(L) 135 - 145 mMol/L 06/11/2024 2:51 AM [facility] Potassium 4.1 3.5 - 5.0 mMol/L 06/11/2024 2:51 AM [facility] Chloride 96(L) 98 - 107 mMol/L 06/11/2024 2:51 AM EST [facility] Carbon Dioxide 28 22 [...] MD CHEMISTRY ORDERABLES [facility] [place] [address] * POC, GLUCOSE (06/11/2024 12:50 AM EST) Glucometer, POC 144 65 - 199 mg/dL 06/11/2024 12:51 AM EST [facility] Comment:Supplemental ranges: <140 mg/dL before meals <180 mg/dL all other times of the day. Blood CAPILLARY BLOOD / Unknown 06/11/2024 12:50 AM EST 06/11/2024 12:51 AM EST Melida Valdes MD POINT OF CARE TEST O NIKA [facility] [place] [address] * (ABNORMAL) POC, GLUCOSE (06/10/2024 7:22 PM EST) Glucometer, POC 236(H) 65 - 199 mg/dL 06/10/2024 7:22 PM EST [facility] Comment:Supplemental ranges: <140 mg/dL before meals <180 mg/dL all other times of the day. Blood CAPILLARY BLOOD / Unknown 06/10/2024 7:22 PM EST 06/10/2024 7:22 PM EST Melida Valdes MD POINT OF CARE TEST Abimael MAHER Performing Organization Address [facility]/ZIP Co de Phone Number [facility] [place] [address] * (ABNORMAL) Blood Gas, Venous (06/10/2024 5:42 [...] MD CHEMISTRY ORDERABLES [facility] [place] [address] * POC, GLUCOSE (06/10/2024 5:35 PM EST) [facility] Signature Glucometer, POC 123 65 - 199 mg/dL 06/10/2024 5:35 PM [facility] Comment:Supplemental ranges: <140 mg/dL before meals <180 mg/dL all other times of the day. Blood CAPILLARY BLOOD / Unknown 06/10/2024 5:35 PM EST 06/10/2024 5:35 PM EST Melida Valdes MD POINT OF CARE TEST O NIKA Performing Organization Address City/[facility]/ZIP Co de Phone Number [facility] [place] [address] * (ABNORMAL) POC, GLUCOSE (06/10/2024 11:25 AM EST) Glucometer, POC 216(H) 65 - 199 mg/dL 06/10/2024 11:25 AM EST [facility] Comment:Supplemental ranges: <140 mg/dL before meals <180 mg/dL all other times of the day. Blood CAPILLARY BLOOD / Unknown 06/10/2024 11:25 AM EST 06/10/2024 11:25 AM EST Melida Valdes MD POINT OF CARE TEST O NIKA Performing Organization Address [facility] Co de Phone Number [facility] [place] [address] * (ABNORMAL) POC, GLUCOSE (06/10/2024 7:46 AM EST) Glucometer, POC 206(H) 65 - 199 mg/dL 06/10/2024 7:46 AM EST [facility] Comment:Supplemental ranges: <140 mg/dL before meals <180 mg/dL all other times of the day. Blood CAPILLARY BLOOD / Unknown 06/10/2024 7:46 AM EST 06/10/2024 7:46 AM EST Melida Valdes MD POINT OF CARE TEST O NIKA Performing Organization Address City/[facility] Co de Phone Number [facility] [place] [address] * POC, GLUCOSE (06/10/2024 4:23 AM EST) Glucometer, POC 154 65 - 199 mg/dL 06/10/2024 4:24 AM [facility] Comment:Supplemental ranges: <140 mg/dL before meals <180 mg/dL all other times of the day. Blood CAPILLARY BLOOD / Unknown 06/10/2024 4:23 AM EST 06/10/2024 4:24 AM EST Melida Valdes MD POINT OF CARE TEST O RDERABLES Performing Organization Address City/State/[facility] Co de Phone Number [facility] [place] [address] * (ABNORMAL) CBC (with Diff) (06/10/2024 1:55 [...] 0.04 x10(3)/mc L 06/10/2024 2:14 AM EST [facility] Blood VENOUS BLOOD SPECIMEN / Unknown Venipuncture / Unknown 06/10/2024 1:55 AM EST 06/10/2024 2:05 AM EST Shahnaz Scanlon MD HEMATOLOGY ORDERABLE S Performing Organization Address City/[facility]/ZIP Co de Phone Number [facility] [place] [address] * Magnesium (06/10/2024 1:55 AM EST) Magnesium 0.83 0.69 - 1.07 mMol/L 06/10/2024 2:37 AM [facility] Blood VENOUS BLOOD SPECIMEN / Unknown Venipuncture / Unknown 06/10/2024 1:55 AM EST 06/10/2024 2:05 AM EST Shahnaz Scanlon MD CHEMISTRY ORDERABLES [facility] [place] [address] * (ABNORMAL) Basic Metabolic Panel (06/10/2024 1:55 [...] Scanlon MD CHEMISTRY ORDERABLES Performing Organization Address City/State/[facility] Co de Phone Number [facility] [place] [address] * Heparin (unfractionated) Level (06/10/2024 1:54 AM EST) UF Heparin 0.56 IU/mL 06/10/2024 2:41 AM [facility] Comment: Heparin [...] MD HEMATOLOGY ORDERABLE S Performing Organization Address City/[facility]/ZIP Co de Phone Number [facility] [place] [address] * POC, GLUCOSE (06/10/2024 12:05 AM EST) Glucometer, POC 125 65 - 199 mg/dL 06/10/2024 12:05 AM EST [facility] Comment:Supplemental ranges: <140 mg/dL before meals <180 mg/dL all other times of the day. Blood CAPILLARY BLOOD / Unknown 06/10/2024 12:05 AM EST 06/10/2024 12:05 AM EST Melida Valdes MD POINT OF CARE TEST O RDERABLES Performing Organization Address City/[facility]/ZIP Co de Phone Number [facility] [place] [address] * POC, GLUCOSE (06/09/2024 8:36 PM EST) Glucometer, POC 197 65 - 199 mg/dL 06/09/2024 8:36 PM EST [facility] Comment:Supplemental ranges: <140 mg/dL before meals <180 mg/dL all other times of the day. Blood CAPILLARY BLOOD / Unknown 06/09/2024 8:36 PM EST 06/09/2024 8:36 PM EST Melida Valdes MD POINT OF CARE TEST O NIKA Performing Organization Address [facility] Co de Phone Number [facility] [place] [address] * POC, GLUCOSE (06/09/2024 5:27 PM EST) Glucometer, POC 174 65 - 199 mg/dL 06/09/2024 5:28 PM EST [facility] Comment:Supplemental ranges: <140 mg/dL before meals <180 mg/dL all other times of the day. Blood CAPILLARY BLOOD / Unknown 06/09/2024 5:27 PM EST 06/09/2024 5:28 PM EST Melida Valdes MD POINT OF CARE TEST O NIKA Performing Organization Address [facility] Co de Phone Number [facility] [place] [address] * (ABNORMAL) POC, GLUCOSE (06/09/2024 11:52 AM EST) Glucometer, POC 211(H) 65 - 199 mg/dL 06/09/2024 11:52 AM EST [facility] Comment:Supplemental ranges: <140 mg/dL before meals <180 mg/dL all other times of the day. Blood CAPILLARY BLOOD / Unknown 06/09/2024 11:52 AM EST 06/09/2024 11:52 AM EST Melida Valdes MD POINT OF CARE TEST O NIKA Performing Organization Address City/[facility] Co de Phone Number [facility] [place] [address] * Potassium (06/09/2024 8:25 AM EST) Potassium 4.6 3.5 - 5.0 mMol/L 06/09/2024 10:09 AM EST [facility] Blood VENOUS BLOOD SPECIMEN / Unknown Venipuncture / Unknown 06/09/2024 8:25 AM EST 06/09/2024 8:42 AM EST Shahnaz Scanlon MD CHEMISTRY ORDERABLES Performing Organization Address [facility] Co de Phone Number [facility] [place] [address] * (ABNORMAL) POC, GLUCOSE (06/09/2024 8:10 AM EST) Glucometer, POC 209(H) 65 - 199 mg/dL 06/09/2024 8:10 AM EST [facility] Comment:Supplemental ranges: <140 mg/dL before meals <180 mg/dL all other times of the day. Blood CAPILLARY BLOOD / Unknown 06/09/2024 8:10 AM EST 06/09/2024 8:11 AM EST Melida Valdes MD POINT OF CARE TEST O RDERABLES Performing Organization Address [facility] Co de Phone Number [facility] [place] [address] * POC, GLUCOSE (06/09/2024 4:40 AM EST) Glucometer, POC 131 65 - 199 mg/dL 06/09/2024 4:40 AM EST [facility] Comment:Supplemental ranges: <140 mg/dL before meals <180 mg/dL all other times of the day. Blood CAPILLARY BLOOD / Unknown 06/09/2024 4:40 AM EST 06/09/2024 4:41 AM EST Melida Valdes MD POINT OF CARE TEST O NIKA Performing Organization Address [facility] Co de Phone Number [facility] [place] [address] * Heparin (unfractionated) Level (06/09/2024 2:12 AM [...] MD HEMATOLOGY ORDERABLE S Performing Organization Address City/State/[facility] Co de Phone Number [facility] [place] [address] * (ABNORMAL) CBC (with Diff) (06/09/2024 2:12 AM EST) White Blood Cell 9.80(H) 4.00 - 9.50 x10(3)/mc L 06/09/2024 2:44 AM EST [facility] Red Blood Cell 5.18 4.58 - 5.54 x10(6)/mc L 06/09/2024 2:44 AM EST [facility] Hemoglobin 15.5 13.7 - 16.5 g/dL 06/09/2024 2:44 AM EST [facility] Hematocrit 47.4 40.5 [...] MD HEMATOLOGY ORDERABLE S Performing Organization Address City/[facility]/ZIP Co de Phone Number [facility] [place] [address] * Magnesium (06/09/2024 2:12 AM EST) Magnesium 0.83 0.69 - 1.07 mMol/L 06/09/2024 2:52 AM [facility] Blood VENOUS BLOOD SPECIMEN / Unknown Venipuncture / Unknown 06/09/2024 2:12 AM EST 06/09/2024 2:22 AM EST Shahnaz Scanlon MD CHEMISTRY ORDERABLES Performing Organization Address City/[facility]/ZIP Co de Phone Number [facility] [place] [address] * (ABNORMAL) Basic Metabolic Panel (06/09/2024 2:12 AM EST) Glucose 147 65 - 199 mg/dL 06/09/2024 2:52 AM [facility] Comment:Glucose Concentratio n >=200 mg/dL plus symptoms is consistent with Diabetes Mellitus. Blood Urea Nitrogen 24(H) 10 - 20 mg/dL 06/09/2024 2:52 AM EST [facility] Creatinine 1.11 0.80 - 1.50 mg/dL 06/09/2024 2:52 AM EST [facility] Sodium 136 135 - 145 mMol/L 06/09/2024 2:52 AM EST [facility] Potassium 3.9 3.5 - 5.0 mMol/L 06/09/2024 2:52 AM EST [facility] Chloride 98 98 - 107 mMol/L 06/09/2024 2:52 AM EST [facility] Carbon Dioxide 27 22 [...] MD CHEMISTRY ORDERABLES [facility] [place] [address] * POC, GLUCOSE (06/09/2024 12:34 AM EST) Glucometer, POC 186 65 - 199 mg/dL 06/09/2024 12:34 AM EST [facility] Comment:Supplemental ranges: <140 mg/dL before meals <180 mg/dL all other times of the day. Blood CAPILLARY BLOOD / Unknown 06/09/2024 12:34 AM EST 06/09/2024 12:34 AM EST Melida Valdes MD POINT OF CARE TEST O NIKA Performing Organization Address City/[facility]/ZIP Co de Phone Number [facility] [place] [address] * POC, GLUCOSE (06/08/2024 8:27 PM EST) Glucometer, POC 176 65 - 199 mg/dL 06/08/2024 8:28 PM EST [facility] Comment:Supplemental ranges: <140 mg/dL before meals <180 mg/dL all other times of the day. Blood CAPILLARY BLOOD / Unknown 06/08/2024 8:27 PM EST 06/08/2024 8:28 PM EST Melida Valdes MD POINT OF CARE TEST O NIKA Performing Organization Address [facility] Co de Phone Number [facility] [place] [address] * POC, GLUCOSE (06/08/2024 4:16 PM EST) Glucometer, POC 159 65 - 199 mg/dL 06/08/2024 4:16 PM EST [facility] Comment:Supplemental ranges: <140 mg/dL before meals <180 mg/dL all other times of the day. Blood CAPILLARY BLOOD / Unknown 06/08/2024 4:16 PM EST 06/08/2024 4:16 PM EST Melida Valdes MD POINT OF CARE TEST O NIKA Performing Organization Address City/[facility]/ZIP Co de Phone Number [facility] [place] [address] * (ABNORMAL) POC, GLUCOSE (06/08/2024 12:35 PM EST) Glucometer, POC 226(H) 65 - 199 mg/dL 06/08/2024 12:35 PM EST [facility] Comment:Supplemental ranges: <140 mg/dL before meals <180 mg/dL all other times of the day. Blood CAPILLARY BLOOD / Unknown 06/08/2024 12:35 PM EST 06/08/2024 12:35 PM EST Melida Valdes MD POINT OF CARE TEST O RDBECKIE Performing Organization Address City/[facility]/ZIP Co de Phone Number [facility] [place] [address] * POC, GLUCOSE (06/08/2024 8:10 AM EST) Glucometer, POC 190 65 - 199 mg/dL 06/08/2024 8:14 AM EST [facility] Comment:Supplemental ranges: <140 mg/dL before meals <180 mg/dL all other times of the day. Blood CAPILLARY BLOOD / Unknown 06/08/2024 8:10 AM EST 06/08/2024 8:14 AM EST Melida Valdes MD POINT OF CARE TEST O RDERAPIETER [facility] [place] [address] * POC, GLUCOSE (06/08/2024 4:09 AM EST) Glucometer, POC 151 65 - 199 mg/dL 06/08/2024 4:10 AM EST [facility] Comment:Supplemental ranges: <140 mg/dL before meals <180 mg/dL all other times of the day. Blood CAPILLARY BLOOD / Unknown 06/08/2024 4:09 AM EST 06/08/2024 4:10 AM EST Melida Valdes MD POINT OF CARE TEST O RDERABLES Performing Organization Address [facility]/ZIP Co de Phone Number [facility] [place] [address] * Heparin (unfractionated) Level (06/08/2024 3:21 AM [...] MD HEMATOLOGY ORDERABLE S Performing Organization Address City/[facility]/ZIP Co de Phone Number [facility] [place] [address] * (ABNORMAL) CBC (with Diff) (06/08/2024 3:21 AM EST) White Blood Cell 9.92(H) 4.00 - 9.50 x10(3)/mc L 06/08/2024 3:34 AM EST [facility] Red Blood Cell 5.09 4.58 - 5.54 x10(6)/mc L 06/08/2024 3:34 AM EST [facility] Hemoglobin 15.1 13.7 - [...] EST Shahnaz Scanlon MD [place] [address] * Magnesium (06/08/2024 3:21 AM EST) Magnesium 0.84 0.69 - 1.07 mMol/L 06/08/2024 3:59 AM [facility] Blood VENOUS BLOOD SPECIMEN / Unknown Venipuncture / Unknown 06/08/2024 3:21 AM EST 06/08/2024 3:27 AM EST Shahnaz Scanlon MD CHEMISTRY ORDERABLES [facility] [place] [address] * (ABNORMAL) Basic Metabolic Panel (06/08/2024 3:21 [...] Scanlon MD CHEMISTRY ORDERABLES Performing Organization Address [facility]/ZIP Co de Phone Number [facility] [place] [address] * POC, GLUCOSE (06/07/2024 11:57 PM EST) Glucometer, POC 188 65 - 199 mg/dL 06/07/2024 11:57 PM EST [facility] Comment:Supplemental ranges: <140 mg/dL before meals <180 mg/dL all other times of the day. Blood CAPILLARY BLOOD / Unknown 06/07/2024 11:57 PM EST 06/07/2024 11:58 PM EST Melida Vlades MD POINT OF CARE TEST O NIKA Performing Organization Address [facility] Co de Phone Number [facility] [place] [address] * POC, GLUCOSE (06/07/2024 8:05 PM EST) Glucometer, POC 118 65 - 199 mg/dL 06/07/2024 8:06 PM EST [facility] Comment:Supplemental ranges: <140 mg/dL before meals <180 mg/dL all other times of the day. Blood CAPILLARY BLOOD / Unknown 06/07/2024 8:05 PM EST 06/07/2024 8:06 PM EST Melida Valdes MD POINT OF CARE TEST O NIKA Performing Organization Address City/[facility]/ZIP Co de Phone Number [facility] [place] [address] * Potassium (06/07/2024 5:22 PM EST) Potassium 4.6 3.5 - 5.0 mMol/L 06/07/2024 5:59 PM EST [facility] Blood VENOUS BLOOD SPECIMEN / Unknown Venipuncture / Unknown 06/07/2024 5:22 PM EST 06/07/2024 5:26 PM EST Shahnaz Scanlon MD CHEMISTRY ORDERABLES Performing Organization Address [facility] Co de Phone Number [facility] [place] [address] * POC, GLUCOSE (06/07/2024 4:31 PM EST) Glucometer, POC 174 65 - 199 mg/dL 06/07/2024 4:34 PM EST [facility] Comment:Supplemental ranges: <140 mg/dL before meals <180 mg/dL all other times of the day. Blood CAPILLARY BLOOD / Unknown 06/07/2024 4:31 PM EST 06/07/2024 4:34 PM EST Melida Valdes MD POINT OF CARE TEST O RDERABLES Performing Organization Address [facility] Co de Phone Number [facility] [place] [address] * MRI Cardiac Morphology Function wwo Contrast (06/07/2024 1:10 PM EST) WORKSTATION ID [id number] DH RAD Anatomical Region Laterality Modality Magnetic [...] - Mildly dilated left ventricle size with [id number] decreased LV systolic function. ??LV ejection fraction [...] who have questions please contact the health primary care md that requested your imaging first. ? Narrative [...] VENTRICLE: Mildly dilated left ventricle size with nkxoxmeb-gt-oybhftas decreased LV systolic function. ??LV ejection fraction [...] VENTRICLE: Mildly dilated left ventricle size with txhrydhy-hh-oihmdntb decreasedLV systolic function. LV ejection fraction is [...] - Mildly dilated left ventricle size with zpkkifjh-zo-zlhnktmx decreasedLV systolic function. LV ejection fraction is [...] patients who have questions please contactthe health primary care md that requested your imaging first. Delroy Fofana [...] CARE TEST O NIKA Performing Organization Address City/[facility] Co de Phone Number [facility] [place] [address] * (ABNORMAL) POC, GLUCOSE (06/07/2024 11:03 AM EST) [facility] Signature Glucometer, POC 250(H) 65 - 199 mg/dL 06/07/2024 11:04 AM EST [facility] Comment:Supplemental ranges: <140 mg/dL before meals <180 mg/dL all other times of the day. Blood CAPILLARY BLOOD / Unknown 06/07/2024 11:03 AM EST 06/07/2024 11:04 AM EST Melida Valdes MD POINT OF CARE TEST O NIKA [facility] [place] [address] * Potassium (06/07/2024 9:44 AM EST) [facility] Signature Potassium 4.7 3.5 - 5.0 mMol/L 06/07/2024 10:23 AM EST [facility] Blood VENOUS BLOOD SPECIMEN / Unknown Venipuncture / Unknown 06/07/2024 9:44 AM EST 06/07/2024 9:57 AM EST Shahnaz Scanlon MD CHEMISTRY ORDERABLES Performing Organization Address [facility]/ZIP Co de Phone Number [facility] [place] [address] * POC, GLUCOSE (06/07/2024 7:45 AM EST) Glucometer, POC 175 65 - 199 mg/dL 06/07/2024 7:45 AM EST [facility] Comment:Supplemental ranges: <140 mg/dL before meals <180 mg/dL all other times of the day. Blood CAPILLARY BLOOD / Unknown 06/07/2024 7:45 AM EST 06/07/2024 7:46 AM EST Melida Valdes MD POINT OF CARE TEST O RDERABLES Performing Organization Address [facility] Co de Phone Number [facility] [place] [address] * XR Chest PA & Lateral (Generic) (06/07/2024 7:03 AM EST) WORKSTATION ID [id number] RAD Anatomical Region Laterality Modality Chest N/A [...] who have questions please contact the health primary care md that requested your imaging first. ? Electronically signed by: Stuart Aponte MD, [facility] ??([phone]), at 06/07/2024 10:45 AM Narrative 06/07/2024 10:45 [...] patients who have questions please contactthe health primary care md that requested your imaging first. Shahnaz Scanlon [...] CARE TEST O RDERABLES Performing Organization Address [facility] Co de Phone Number [facility] [place] [address] * Heparin (unfractionated) Level (06/07/2024 2:41 AM EST) Pathologist [facility] [place] UF Heparin 0.45 IU/mL 06/07/2024 3:03 AM [...] MD HEMATOLOGY ORDERABLE S Performing Organization Address City/[facility]/ZIP Co de Phone Number [facility] [place] [address] * (ABNORMAL) CBC (with Diff) (06/07/2024 2:41 AM EST) [facility] White Blood Cell 10.06(H) 4.00 - [...] HEMATOLOGY ORDERABLE S [facility] [place] [address] * Magnesium (06/07/2024 2:41 AM EST) Magnesium 0.92 0.69 - 1.07 mMol/L 06/07/2024 3:25 AM EST [facility] Blood VENOUS BLOOD SPECIMEN / Unknown Venipuncture / Unknown 06/07/2024 2:41 AM EST 06/07/2024 2:51 AM EST Shahnaz Scanlon MD CHEMISTRY ORDERABLES [facility] [place] [address] * (ABNORMAL) Basic Metabolic Panel (06/07/2024 2:41 [...] Scanlon MD CHEMISTRY ORDERABLES Performing Organization Address [facility] Co de Phone Number [facility] [place] [address] * POC, GLUCOSE (06/07/2024 12:08 AM EST) Glucometer, POC 182 65 - 199 mg/dL 06/07/2024 12:09 AM EST [facility] Comment:Supplemental ranges: <140 mg/dL before meals <180 mg/dL all other times of the day. Blood CAPILLARY BLOOD / Unknown 06/07/2024 12:08 AM EST 06/07/2024 12:09 AM EST Melida Valdes MD POINT OF CARE TEST O RDERABLES Performing Organization Address City/[facility]/ZIP Co de Phone Number [facility] [place] [address] * POC, GLUCOSE (06/06/2024 8:18 PM EST) Glucometer, POC 143 65 - 199 mg/dL 06/06/2024 8:19 PM EST [facility] Comment:Supplemental ranges: <140 mg/dL before meals <180 mg/dL all other times of the day. Blood CAPILLARY BLOOD / Unknown 06/06/2024 8:18 PM EST 06/06/2024 8:19 PM EST Melida Valdes MD POINT OF CARE TEST O NIKA Performing Organization Address [facility] Co de Phone Number [facility] [place] [address] * POC, GLUCOSE (06/06/2024 3:39 PM EST) Glucometer, POC 147 65 - 199 mg/dL 06/06/2024 3:40 PM EST [facility] Comment:Supplemental ranges: <140 mg/dL before meals <180 mg/dL all other times of the day. Blood CAPILLARY BLOOD / Unknown 06/06/2024 3:39 PM EST 06/06/2024 3:40 PM EST Melida Valdes MD POINT OF CARE TEST Abimael MAHER Performing Organization Address [facility] de Phone Number [facility] [place] [address] * Potassium (06/06/2024 2:37 PM EST) Potassium 4.3 3.5 - 5.0 mMol/L 06/06/2024 3:01 PM EST [facility] Blood VENOUS BLOOD SPECIMEN / Unknown Venipuncture / Unknown 06/06/2024 2:37 PM EST 06/06/2024 2:42 PM EST Shahnaz Scanlon MD CHEMISTRY ORDERABLES Performing Organization Address [facility] Co de Phone Number [facility] [place] [address] * (ABNORMAL) POC, GLUCOSE (06/06/2024 1:39 PM EST) Glucometer, POC 317(H) 65 - 199 mg/dL 06/06/2024 1:40 PM EST [facility] Comment:Supplemental ranges: <140 mg/dL before meals <180 mg/dL all other times of the day. Blood CAPILLARY BLOOD / Unknown 06/06/2024 1:39 PM EST 06/06/2024 1:41 PM EST Melida Valdes MD POINT OF CARE TEST O NIKA [facility] [place] [address] * (ABNORMAL) POC, GLUCOSE (06/06/2024 11:34 AM EST) Glucometer, POC 264(H) 65 - 199 mg/dL 06/06/2024 11:35 AM EST [facility] Comment:Supplemental ranges: <140 mg/dL before meals <180 mg/dL all other times of the day. Blood CAPILLARY BLOOD / Unknown 06/06/2024 11:34 AM EST 06/06/2024 11:35 AM EST Melida Valdes MD POINT OF CARE TEST Abimael MAHER Performing Organization Address City/[facility]/ZIP Co de Phone Number [facility] [place] [address] * Potassium (06/06/2024 10:17 AM EST) Potassium 4.3 3.5 - 5.0 mMol/L 06/06/2024 10:46 AM EST [facility] Blood VENOUS BLOOD SPECIMEN / Unknown Venipuncture / Unknown 06/06/2024 10:17 AM EST 06/06/2024 10:22 AM EST Shahnaz Scanlon MD CHEMISTRY ORDERABLES [facility] [place] [address] * POC, GLUCOSE (06/06/2024 7:57 AM EST) Glucometer, POC 195 65 - 199 mg/dL 06/06/2024 8:03 AM EST [facility] Comment:Supplemental ranges: <140 mg/dL before meals <180 mg/dL all other times of the day. Blood CAPILLARY BLOOD / Unknown 06/06/2024 7:57 AM EST 06/06/2024 8:03 AM EST Melida Valdes MD POINT OF CARE TEST O NIKA Performing Organization Address [facility] Co de Phone Number [facility] [place] [address] * POC, GLUCOSE (06/06/2024 6:53 AM EST) Glucometer, POC 187 65 - 199 mg/dL 06/06/2024 6:53 AM EST [facility] Comment:Supplemental ranges: <140 mg/dL before meals <180 mg/dL all other times of the day. Blood CAPILLARY BLOOD / Unknown 06/06/2024 6:53 AM EST 06/06/2024 6:54 AM EST Melida Valdes MD POINT OF CARE TEST Abimael MAHER Performing Organization Address [facility] Co de Phone Number [facility] [place] [address] * (ABNORMAL) Hemoglobin A1c (06/06/2024 3:33 AM [...] red blood cell turnover may not be fulfillment representative of glycemic control. Reference Interval: 4.3 - 5.6% 5.7 - 6.4%: Consistent with prediabetes >=6.5%: Consistent with diagnosis of diabetes mellitus Estimated Average Glucose 157 mg/dL 06/06/2024 1:01 PM EST [facility] Blood VENOUS BLOOD SPECIMEN / Unknown Venipuncture / Unknown 06/06/2024 3:33 AM EST 06/06/2024 3:48 AM EST Alejandra Baumann APRN CHEMISTRY ORDERAB LES Performing Organization Address [facility]/ZIP Co de Phone Number [facility] [place] [address] * Heparin (unfractionated) Level (06/06/2024 3:33 AM [...] MD HEMATOLOGY ORDERABLE S Performing Organization Address City/[facility]/ZIP Co de Phone Number [facility] [place] [address] * (ABNORMAL) CBC (with Diff) (06/06/2024 3:33 [...] HEMATOLOGY ORDERABLE S [facility] [place] [address] * Magnesium (06/06/2024 3:33 AM EST) Magnesium 0.92 0.69 - 1.07 mMol/L 06/06/2024 4:17 AM [facility] Blood VENOUS BLOOD SPECIMEN / Unknown Venipuncture / Unknown 06/06/2024 3:33 AM EST 06/06/2024 3:47 AM EST Shahnaz Scanlon MD CHEMISTRY ORDERABLES [facility] [place] [address] * (ABNORMAL) Basic Metabolic Panel (06/06/2024 3:33 [...] Scanlon MD CHEMISTRY ORDERABLES Performing Organization Address [facility] Co de Phone Number [facility] [place] [address] * (ABNORMAL) POC, GLUCOSE (06/05/2024 10:31 PM EDT) Glucometer, POC 238(H) 65 - 199 mg/dL 06/05/2024 10:31 PM EDT [facility] Comment:Supplemental ranges: <140 mg/dL before meals <180 mg/dL all other times of the day. Blood CAPILLARY BLOOD / Unknown 06/05/2024 10:31 PM EDT 06/05/2024 10:31 PM EDT Melida Valdes MD POINT OF CARE TEST O RDERABLES Performing Organization Address City/[facility]/ZIP Co de Phone Number [facility] [place] [address] * (ABNORMAL) POC, GLUCOSE (06/05/2024 4:22 PM EDT) Glucometer, POC 205(H) 65 - 199 mg/dL 06/05/2024 4:22 PM EDT [facility] Comment:Supplemental ranges: <140 mg/dL before meals <180 mg/dL all other times of the day. Blood CAPILLARY BLOOD / Unknown 06/05/2024 4:22 PM EDT 06/05/2024 4:23 PM EDT Melida Valdes MD POINT OF CARE TEST O RDERABLES [facility] [place] [address] * (ABNORMAL) POC, GLUCOSE (06/05/2024 11:34 AM EDT) Glucometer, POC 211(H) 65 - 199 mg/dL 06/05/2024 11:34 AM EDT [facility] Comment:Supplemental ranges: <140 mg/dL before meals <180 mg/dL all other times of the day. Blood CAPILLARY BLOOD / Unknown 06/05/2024 11:34 AM EDT 06/05/2024 11:34 AM EDT Melida Valdes MD POINT OF CARE TEST O RDERABLES Performing Organization Address City/[facility]/ZIP Co de Phone Number [facility] [place] [address] * Potassium (06/05/2024 9:04 AM EDT) Potassium 4.3 3.5 - 5.0 mMol/L 06/05/2024 9:50 AM EDT [facility] Blood VENOUS BLOOD SPECIMEN / Unknown Venipuncture / Unknown 06/05/2024 9:04 AM EDT 06/05/2024 9:21 AM EDT Shahnaz Scanlon MD CHEMISTRY ORDERABLES [facility] [place] [address] * POC, GLUCOSE (06/05/2024 7:27 AM EDT) Glucometer, POC 166 65 - 199 mg/dL 06/05/2024 7:27 AM EDT [facility] Comment:Supplemental ranges: <140 mg/dL before meals <180 mg/dL all other times of the day. Blood CAPILLARY BLOOD / Unknown 06/05/2024 7:27 AM EDT 06/05/2024 7:27 AM EDT Melida Valdes MD POINT OF CARE TEST O RDERABLES Performing Organization Address [facility] Co de Phone Number [facility] [place] [address] * Heparin (unfractionated) Level (06/05/2024 3:44 AM [...] MD HEMATOLOGY ORDERABLE S Performing Organization Address City/[facility]/ZIP Co de Phone Number [facility] [place] [address] * (ABNORMAL) CBC (with Diff) (06/05/2024 3:44 [...] HEMATOLOGY ORDERABLE S [facility] [place] [address] * Magnesium (06/05/2024 3:44 AM EDT) Magnesium 0.92 0.69 - 1.07 mMol/L 06/05/2024 4:20 AM EDT [facility] Blood VENOUS BLOOD SPECIMEN / Unknown Venipuncture / Unknown 06/05/2024 3:44 AM EDT 06/05/2024 3:50 AM EDT Shahnaz Scanlon MD CHEMISTRY ORDERABLES [facility] [place] [address] * (ABNORMAL) Basic Metabolic Panel (06/05/2024 3:44 AM EDT) Glucose 155 65 - 199 mg/dL 06/05/2024 4:20 AM EDT [facility] Comment:Glucose [...] Scanlon MD CHEMISTRY ORDERABLES Performing Organization Address [facility]/ZIP Co de Phone Number [facility] [place] [address] * Potassium (06/04/2024 10:34 PM EDT) Potassium 3.7 3.5 - 5.0 mMol/L 06/04/2024 11:03 PM EDT [facility] Blood VENOUS BLOOD SPECIMEN / Unknown Venipuncture / Unknown 06/04/2024 10:34 PM EDT 06/04/2024 10:39 PM EDT Shahnaz Scanlon MD CHEMISTRY ORDERABLES Performing Organization Address [facility] Co de Phone Number [facility] [place] [address] * POC, GLUCOSE (06/04/2024 7:43 PM EDT) Glucometer, POC 175 65 - 199 mg/dL 06/04/2024 7:43 PM EDT [facility] Comment:Supplemental ranges: <140 mg/dL before meals <180 mg/dL all other times of the day. Blood CAPILLARY BLOOD / Unknown 06/04/2024 7:43 PM EDT 06/04/2024 7:43 PM EDT Melida Valdes MD POINT OF CARE TEST O RDERABLES Performing Organization Address City/State/[facility] Co de Phone Number [facility] [place] [address] * Potassium (06/04/2024 4:35 PM EDT) Potassium 4.0 3.5 - 5.0 mMol/L 06/04/2024 5:32 PM EDT [facility] Blood VENOUS BLOOD SPECIMEN / Unknown Venipuncture / Unknown 06/04/2024 4:35 PM EDT 06/04/2024 4:40 PM EDT Shahnaz Scanlon MD CHEMISTRY ORDERABLES Performing Organization Address [facility] Co de Phone Number [facility] [place] [address] * POC, GLUCOSE (06/04/2024 3:26 PM EDT) Glucometer, POC 154 65 - 199 mg/dL 06/04/2024 3:26 PM EDT [facility] Comment:Supplemental ranges: <140 mg/dL before meals <180 mg/dL all other times of the day. Blood CAPILLARY BLOOD / Unknown 06/04/2024 3:26 PM EDT 06/04/2024 3:27 PM EDT Melida Valdes MD POINT OF CARE TEST O RDERABLES Performing Organization Address [facility] Co de Phone Number [facility] [place] [address] * POC, GLUCOSE (06/04/2024 11:09 AM EDT) Glucometer, POC 188 65 - 199 mg/dL 06/04/2024 11:09 AM EDT [facility] Comment:Supplemental ranges: <140 mg/dL before meals <180 mg/dL all other times of the day. Blood CAPILLARY BLOOD / Unknown 06/04/2024 11:09 AM EDT 06/04/2024 11:09 AM EDT Delroy Fofana MD POINT OF CARE TEST ORDERABLES Performing Organization Address [facility] Co de Phone Number [facility] [place] [address] * Heparin (unfractionated) Level (06/04/2024 10:41 AM [...] HEMATOLOGY ORDERABLE S [facility] [place] [address] * Potassium (06/04/2024 10:41 AM EDT) Potassium 4.0 3.5 - 5.0 mMol/L 06/04/2024 11:11 AM EDT [facility] Blood VENOUS BLOOD SPECIMEN / Unknown Venipuncture / Unknown 06/04/2024 10:41 AM EDT 06/04/2024 10:46 AM EDT Shahnaz Scanlon MD CHEMISTRY ORDERABLES Performing Organization Address City/[facility]/ZIP Co de Phone Number [facility] [place] [address] * POC, GLUCOSE (06/04/2024 7:11 AM EDT) Glucometer, POC 182 65 - 199 mg/dL 06/04/2024 7:12 AM EDT [facility] Comment:Supplemental ranges: <140 mg/dL before meals <180 mg/dL all other times of the day. Blood CAPILLARY BLOOD / Unknown 06/04/2024 7:11 AM EDT 06/04/2024 7:12 AM EDT Delroy Fofana MD POINT OF CARE TEST ORDERABLES Performing Organization Address [facility] Co de Phone Number [facility] [place] [address] * Heparin (unfractionated) Level (06/04/2024 4:38 AM [...] HEMATOLOGY ORDERABLE S [facility] [place] [address] * (ABNORMAL) CBC (with Diff) (06/04/2024 4:38 [...] - 13.8 % 06/04/2024 5:12 AM EDT [facility] NRBC% auto 0.0 [...] - 0.04 x10(3)/mc L 06/04/2024 5:12 AM [facility] Blood VENOUS BLOOD SPECIMEN / Unknown Venipuncture / Unknown 06/04/2024 4:38 AM EDT 06/04/2024 5:07 AM EDT Shahnaz Scanlon MD HEMATOLOGY ORDERABLE S [facility] [place] [address] * Magnesium (06/04/2024 4:38 AM EDT) Magnesium 0.84 0.69 - 1.07 mMol/L 06/04/2024 5:35 AM EDT [facility] Blood VENOUS BLOOD SPECIMEN / Unknown Venipuncture / Unknown 06/04/2024 4:38 AM EDT 06/04/2024 5:07 AM EDT Shahnaz Scanlon MD CHEMISTRY ORDERABLES Performing Organization Address City/[facility]/ZIP Co de Phone Number [facility] [place] [address] * (ABNORMAL) Basic Metabolic Panel (06/04/2024 4:38 [...] MD CHEMISTRY ORDERABLES [facility] [place] [address] * Heparin (unfractionated) Level (06/03/2024 8:58 PM [...] HEMATOLOGY ORDERABLE S Performing Organization Address [facility]/ZIP Co de Phone Number [facility] [place] [address] * POC, GLUCOSE (06/03/2024 8:05 PM EDT) Glucometer, POC 136 65 - 199 mg/dL 06/03/2024 8:05 PM EDT [facility] Comment:Supplemental ranges: <140 mg/dL before meals <180 mg/dL all other times of the day. Blood CAPILLARY BLOOD / Unknown 06/03/2024 8:05 PM EDT 06/03/2024 8:05 PM EDT Delroy Fofana MD POINT OF CARE TEST ORDERABLES Performing Organization Address [facility] Co de Phone Number [facility] [place] [address] * POC, GLUCOSE (06/03/2024 5:48 PM EDT) Glucometer, POC 191 65 - 199 mg/dL 06/03/2024 5:48 PM EDT [facility] Comment:Supplemental ranges: <140 mg/dL before meals <180 mg/dL all other times of the day. Blood CAPILLARY BLOOD / Unknown 06/03/2024 5:48 PM EDT 06/03/2024 5:49 PM EDT Delroy Fofana MD POINT OF CARE TEST ORDERABLES [facility] [place] [address] * CT Chest wo Contrast (Generic) (06/03/2024 4:33 PM EDT) WORKSTATION ID [id number] RAD Anatomical Region Laterality Modality Chest Computed Tomogra phy Impressions 06/03/2024 4:47 PM EDT Cardiomegaly. Biventricular ICD leads in place. Thank you for letting us participate in the care of this patient. ??If you are a health care provider and have any questions regarding this report, please contact the number below. ??For patients who have questions please contact the health primary care md that requested your imaging first. ? Electronically signed by: Stuart Aponte MD, [facility] ??([phone]), at 06/03/2024 4:47 PM Narrative 06/03/2024 4:47 [...] patients who have questions please contactthe health primary care md that requested your imaging first. Bobby Loja MD IMG CT ORDERABLES * Carotid Duplex, Bilateral (06/03/2024 2:19 PM EDT) VB Text Report Department: Vascular Surgery Lab Patient: [id number] (GEORGE MEHTA) CPT: 70654 Referring Physician: BOBBY LOJA ?? Phone: Indications: [...] Loja MD VASCULAR ORDERABLES Performing Organization Address City/State/[facility] Co de Phone Number [facility] * [...] HEMATOLOGY ORDERABLE S [facility] [place] [address] * POC, GLUCOSE (06/03/2024 11:14 AM EDT) Glucometer, POC 166 65 - 199 mg/dL 06/03/2024 11:14 AM EDT [facility] Comment:Supplemental ranges: <140 mg/dL before meals <180 mg/dL all other times of the day. Blood CAPILLARY BLOOD / Unknown 06/03/2024 11:14 AM EDT 06/03/2024 11:14 AM EDT Delroy Fofana MD POINT OF CARE TEST ORDERABLES Performing Organization Address [facility] Co de Phone Number [facility] [place] [address] * (ABNORMAL) Troponin-T, High Sensitivity 3 Hour [...] [facility] Test Catalog Troponin - https://[facility].testcatalog.org/catalogs/565/files/25464 Reference: Fourth [place] Definition of Myocardial Infarction. Journal of the [place] [employer] [employer] 2018;72:8224-7684 Troponin-T, HS 3 hr delta 06/03/2024 10:50 AM EDT [facility] Comment:Delta troponin value not calculated, sample collected outside of delta calculation time limit. Blood VENOUS BLOOD SPECIMEN / Unknown IP Care Team Draw / Unknown 06/03/2024 10:06 AM EDT 06/03/2024 10:15 AM EDT Delroy Fofana MD CHEMISTRY ORDERABLE S [facility] [place] [address] * ECHO COMPLETE W CONTRAST (06/03/2024 8:46 AM EDT) Anatomical Region Laterality Modality Cardiac Other 06/03/2024 6:52 AM EDT Narrative 06/03/2024 10:32 AM EDT [address] [place] [address] ? Echocardiogram Report Name: GEORGE MEHTA ?Study Date: 06/03/2024 06:52 AM : 1955 ? Height: 168 cm ? Account: [id number] Age: 69 yrs ? Weight: 102 kg [...] fellow performed study of today's date). Procedure Complete-80505. Image enhancement Optison was used for left [...] Jonnie Jordan MD - 06/03/2024 [address] [place] [address] Echocardiogram Report Name: GEORGE METHA Study Date: 406:52 AM : 1955 Height: 168 cm Account: [id number] Age: 69 yrs Weight: 102 kg Gender: [...] a fellow performed study of's date). Procedure Complete-28271. Image enhancement Optison was used for left [...] [facility] Test Catalog Troponin - https://one-.testcatalog.org/catalogs/565/files/96491 Reference: Fourth [place] Definition of Myocardial Infarction. Journal of the [place] [employer] 2018;72:3500-3073 Troponin-T, HS 1 hr delta 5 ng/L [...] MD CHEMISTRY ORDERABLE S Performing Organization Address City/[facility]/ZIP Co de Phone Number [facility] [place] [address] * POC, GLUCOSE (06/03/2024 7:54 AM EDT) Glucometer, POC 195 65 - 199 mg/dL 06/03/2024 7:55 AM EDT [facility] Comment:Supplemental ranges: <140 mg/dL before meals <180 mg/dL all other times of the day. Blood CAPILLARY BLOOD / Unknown 06/03/2024 7:54 AM EDT 06/03/2024 7:55 AM EDT Nuha Rojo MD POINT OF CARE TEST ORDERABLES Performing Organization Address [facility] Co de Phone Number [facility] [place] [address] * (ABNORMAL) Troponin-T, High Sensitivity (06/03/2024 7:39 [...] troponin value can be found in the [facility] [employer] [facility] Test Catalog Troponin - https://[employer]/catalogs/565/files/74047 Reference: Fourth [place] Definition of Myocardial Infarction. Journal of the [place] [employer] 2018;72:2686-3453 Blood VENOUS BLOOD SPECIMEN / Unknown IP Care Team Draw / Unknown 06/03/2024 7:39 AM EDT 06/03/2024 7:48 AM EDT Delroy Fofana MD CHEMISTRY ORDERABLE S [facility] [place] [address] * (ABNORMAL) Troponin-T, High Sensitivity 3 Hour [...] troponin value can be found in the [facility] [employer] Laboratory Test Catalog Troponin - https://[employer]/catalogs/565/files/82967 Reference: Fourth [place] Definition of Myocardial Infarction. Journal of the [place] [employer] [employer] 2018;72:5491-0923 Troponin-T, HS 3 hr delta 46 ng/L [...] MD CHEMISTRY ORDERABLES [facility] [place] [address] * (ABNORMAL) Troponin-T, High Sensitivity 1 Hour [...] [facility] Test Catalog Troponin - https://[facility]-.testcatalog.org/catalogs/565/files/51447 Reference: Fourth [place] Definition of Myocardial Infarction. Journal of the [place] [employer] 2018;72:1705-5610 Troponin-T, HS 1 hr delta 10 ng/L [...] MD CHEMISTRY ORDERABLES [facility] [place] [address] * XR Chest One View (06/03/2024 2:41 AM EDT) WORKSTATION ID [id number] RAD Anatomical Region Laterality Modality Chest N/A Digital Radiogra phy Impressions 06/03/2024 3:06 AM EDT No radiographically evident acute cardiopulmonary process. Thank you for letting us participate in the care of this patient. ??If you are a health care provider and have any questions regarding this report, please contact the number below. ??For patients who have questions please contact the health primary care md that requested your imaging first. ? Narrative [...] patients who have questions please contactthe health primary care md that requested your imaging first. Shahnaz Scanlon [...] HEMATOLOGY ORDERABLE S [facility] [place] [address] * (ABNORMAL) Troponin-T, High Sensitivity (06/03/2024 2:13 [...] [facility] Test Catalog Troponin - https://one-.testcatalog.org/catalogs/565/files/82149 Reference: Fourth [place] Definition of Myocardial Infarction. Journal of the [place] [employer] 2018;72:0939-5993 Blood VENOUS BLOOD SPECIMEN / Unknown IP Care Team Draw / Unknown 06/03/2024 2:13 AM EDT 06/03/2024 2:32 AM EDT Shahnaz Scanlon MD CHEMISTRY ORDERABLES Performing Organization Address City/[facility]/ZIP Co de Phone Number [facility] [place] [address] * Magnesium (06/03/2024 2:13 AM EDT) Magnesium 0.86 0.69 - 1.07 mMol/L 06/03/2024 3:02 AM EDT [facility] Blood VENOUS BLOOD SPECIMEN / Unknown IP Care Team Draw / Unknown 06/03/2024 2:13 AM EDT 06/03/2024 2:32 AM EDT Shahnaz Scanlon MD CHEMISTRY ORDERABLES Performing Organization Address City/[facility]/ZIP Co de Phone Number [facility] [place] [address] * Basic Metabolic Panel (06/03/2024 2:13 AM [...] MD CHEMISTRY ORDERABLES [facility] [place] [address] * (ABNORMAL) CBC (with Diff) (06/03/2024 2:13 [...] HEMATOLOGY ORDERABLE S [facility] [place] [address] * Lipid Panel (Reflex Direct LDL) (06/03/2024 [...] mg/dL HDL Cholesterol 39 mg/dL 3:02 AM [facility] Comment:Males: High Risk: <4 [...] 2:13 AM EDT 06/03/2024 2:32 AM EDT [facility] - 06/03/2024 3:02 [...] MD CHEMISTRY ORDERABLES [facility] [place] [address] * (ABNORMAL) APTT (06/03/2024 2:13 AM EDT) [facility] Signature Partial Thromboplastin Time 105(HHH) 25 [...] HEMATOLOGY ORDERABLE S [facility] [place] [address] * Prothrombin Time (06/03/2024 2:13 AM EDT) [...] HEMATOLOGY ORDERABLE S [facility] [place] [address] * Hepatic Function Panel (06/03/2024 2:13 AM [...] MD CHEMISTRY ORDERABLES [facility] [place] [address] * (ABNORMAL) pro-Brain Natriuretic Peptide (06/03/2024 2:13 AM EDT) NT-proBNP 1,628(H) <=124 pg/mL 06/03/2024 4:15 AM EDT [facility] Blood VENOUS BLOOD SPECIMEN / Unknown IP Care Team Draw / Unknown 06/03/2024 2:13 AM EDT 06/03/2024 2:32 AM EDT Shahnaz Scanlon MD CHEMISTRY ORDERABLES Performing Organization Address City/[facility]/ZIP Co de Phone Number [facility] [place] [address] * Phosphorus (06/03/2024 2:13 AM EDT) Phosphorus 4.4 2.5 - 4.5 mg/dL 06/03/2024 3:02 AM EDT [facility] Blood VENOUS BLOOD SPECIMEN / Unknown IP Care Team Draw / Unknown 06/03/2024 2:13 AM EDT 06/03/2024 2:32 AM EDT Shahnaz Scanlon MD CHEMISTRY ORDERABLES [facility] [place] [address] * EKG 12 Lead (06/03/2024 1:45 AM EDT) Ventricular rate 63 BPM MUSE SYSTEM Atrial Rate 63 BPM MUSE SYSTEM P-R Interval 168 ms MUSE SYSTEM QRS Duration 96 ms MUSE SYSTEM Q-T Interval 400 ms MUSE SYSTEM QTC Calculated (Bezet) 409 ms MUSE SYSTEM Calculated P [place] 65 degrees MUSE SYSTEM Calculated R [place] 70 degrees MUSE SYSTEM Calculated T [place] -86 degrees MUSE SYSTEM INTERPRETATION Atrial-sensed ventricular-paced rhythm Abnormal ECG No previous ECGs available I personally reviewed the tracing and edited the fellows interpretation Confirmed by fellow Sunni Agudelo ([id number]) on 06/04/2024 3:55:40 PM Confirmed by MD Tamia, Stuart Perry ([id number]) on 06/05/2024 11:46:48 AM MUSE SYSTEM 06/03/2024 1:45 AM EDT 06/05/2024 11:46 AM EDT Shahnaz Scanlon MD ECG ORDERABLES MUSE SYSTEM * CARDIAC CATHETERIZATION (06/03/2024 12:42 AM EDT) Anatomical Region Laterality Modality Other Narrative 06/04/2024 2:22 PM EDT ?[facility] ? Cardiac Catheterization/Intervention Report ? Patient Name: George Mehta L. ? Procedure Date: 06/02/2024 ? A #: [id number] ? Primary Physician: Nuha Shen I ? Case #: [id number] ? File Name: [id number] ? Catheterization Order Number: [id number] ? [facility] ? Final Report [place], [place] ? Patient Name: ? George L. Tyson ? ID#: ?[id number] ? : ?1955 ? Procedure Date: ? [...] was designated as ASA Class IV. The [facility] clinical frailty ?scale is 5: Mildly Frail. ? Diagnostic Tests: ?Electrocardiography: ? EKG was assessed by ECG. EKG was Abnormal. EKG showed ST Deviation ? >= 0.5 mm. ?Medications Prior to Procedure: ? Sacubitril and Valsartan, Aspirin, Beta Erik, Statin and ? Thrombolytic (any). ? Indications for Diagnostic Cath: ?The priority of the diagnostic procedure was Emergent. The indication for ?the laboratory veterinarian visit is ACS less than or equal [...] ?3.5 guiding catheter and a 3.5 Fr [facility] [place] 20 Mhz using Manual ?pullback. ??Imaging was [...] 3.5 guiding catheter and a 3.5 Fr [facility] [place] 20 Mhz using ?Manual pullback. ??Imaging was [...] Procedure Note Nuha Shen MD - 07/20/2024 [facility] Cardiac Catheterization/Intervention Report Patient Name: George Mehta Procedure Date: 06/02/2024 A #: [id number] Primary Physician: Nuha Shen I Case #: [id number] File Name: [id number] Catheterization Order Number: [id number] [facility] FinalReport [place], [place] Patient Name: George Mehta ID#:[id number] :1955 Procedure Date: June 02, 2024 Case [...] was designated as ASA Class IV. The [facility] clinicalfrailty scale is 5: Mildly Frail. Diagnostic Tests: Electrocardiography: EKG was assessed by ECG. EKG was Abnormal. EKG showed STDeviation >= 0.5 mm. Medications Prior to Procedure: Sacubitril and Valsartan, Aspirin, Beta Erik, Statin and Thrombolytic (any). Indications for Diagnostic Cath: The priority of the diagnostic procedure was Emergent. Theindication for the laboratory veterinarian visit is ACS less than or equal [...] units of heparin were administered. A total au967vk of Omnipaque were opened, 84cc of Omnipaque were administered nno93vy of Omnipaque were wasted. Radiation: Fluoro time [...] 3.5 guiding catheter and a 3.5 Fr [facility] [place] 20 Mhz usingManual pullback. Imaging was successful. [...] 3.5 guiding catheter and a 3.5 Fr [facility] [place] 20 Mhzusing Manual pullback. Imaging was successful. Indication: IVUS performed for pre intervention planning. Findings Pre-Intervention: scattered plaque, calcification and avkw920 degrees calcification. Findings Post-Intervention: Stent not imaged [...] * POC, GLUCOSE (06/02/2024 11:31 PM EDT) [facility] Signature Glucometer, POC 156 65 - 199 mg/dL 06/02/2024 11:31 PM EDT [facility] Comment:Supplemental ranges: <140 mg/dL before meals <180 mg/dL all other times of the day. Blood CAPILLARY BLOOD / Unknown 06/02/2024 11:31 PM EDT 06/02/2024 11:31 PM EDT Nuha Rojo MD POINT OF CARE TEST ORDERABLES Performing Organization Address City/State/[facility] Co de Phone Number [facility] [place] [phone] documented in this encounter Visit Diagnoses Not [...] 2100, Last dose on Fri06/23/24 at 0900, Ornithology Teacher recommended duration is 3 days., Routine Given [...] 10:46 AM EST 50 mEq sodium chloride (Frontier) 0.65 % nasal spray 1 spray 1 [...] Mary Lou Lane RN)1237 (Given - Provider: Mar yLou Lane RN)1802 (Given - Provider: Mary Lou [...] 2100, Last dose on Fri06/23/24 at 0900, Ornithology Teacher recommended duration is 3 days., Routine 2043 [...] oral route first line., Routine sodium chloride (Frontier) 0.65 % nasal spray 1 spray 1 [...] Routine documented in this encounter Care Teams Cloth Beamer Relationship Specialty Start Date End Date Mauro Berumen MD [address] [place] [address] PCP - General Family Medicine 06/02/24 documented as of this encounter
--- OUTSIDE RECORDS SUMMARY | 2024-09-15 10:45 | XMS_ITS | Encounter Summary ---
Author Organization [facility] Address [facility] [place] [address] Care Team Providers Care Maintenance Associate Name Role Phone Mauro Berumen MD Primary Care Provider [phone] Encounter Details Date Type Department Care Team (Latest Contact Info) Description 06/03/2024 Travel Social History Tobacco Use Types Packs/Day Years Used Date Smoking Tobacco: Every Day Cigarettes Smokeless Tobacco: Never [facility] Utilities Answer Date Recorded In the [...] a nursing home (including now)? No 06/03/2024 IPV Inpatient [...] PM EST Office Visit Cardiology at [address] [phone] Moi Falcon MD [facility] [place] [address] documented as of this encounter Visit Diagnoses Not on filedocumented in this encounter Care Teams Maintenance Associate Relationship Specialty Start Date End Date Mauro Berumen MD [address] [place] [id number] PCP - General Family Medicine 06/02/24 documented as of this encounter
--- OUTSIDE RECORDS SUMMARY | 2024-09-15 10:45 | XMS_ITS | Encounter Summary ---
Author Organization [facility] [place] [address] Care Team Providers Care Wool Dyer Name Role Phone Mauro Berumen MD Primary Care Provider [phone] Reason for Visit * Auth/Cert Specialty Diagnoses / Procedures Referred By Carroll lopez Referred To Contact Diagnoses STEMI (ST elevation myocardial infarction) STEMI Procedures CARDIAC CATHETERIZATION EMERGENCY Delroy Monterroso MD [facility] [place] [address] [facility] Referral ID Status Reason Start Date Expiration Date Visits Re quested Visits Authorized [id number] 1 1 Encounter Details Date Type Department Care Team (Late st Contact Info) Description 06/13/2024 9:00 AM EST - 06/13/2024 10:00 AM [place] [address] Nuha Shen MD [facility] [place] [address] CARDIAC CATHETERIZATION Social History Tobacco Use Types Packs/Day Years Used Date Smoking Tobacco: Every Day Cigarettes Smokeless Tobacco: Never Tobacco Cessation:Ready to Q uit: No; Counseling Given: Yes [facility] Utilities Answer Date Recorded In the past 12 months has [employer], gas, oil, or water company threatened [...] 1-2 weeks. Patient to follow up with Mortgage Loan Processing Clerk, Kristen Cardenas in 2-3 weeks. Patient to follow up with Cardiac Surgeon, Dr. Bobby Loja, in 4 wks. Inpatient Provider Contact Information: [facility] Section of [place]iac [place] [facility] [place] [address] FAX [phone] Discharge Diagnoses (Hospital Problems) Primary Diagnoses: STEMI [...] 33.75) performed by Bobby Loja MD [facility] OR PRO CABG, ARTERY-VEIN, TWO N/A 06/14/2024 @CABG, TWO VENOUS GRAFTS & ARTERIAL GRAFT (WRVU 7.93) performed by Bobby Loja MD at [facility] OR PRO ENDOSCOPY W/VIDEO-ASST VEIN HARVEST, CABG N/A 06/14/2024 ENDOSCOPIC HARVEST VEIN(S) FOR CABG (WRVU 0.31) performed by Bobby Loja MD at [facility] MAIN OR PRO EXC MEDIASTINAL TUMOR N/A 06/14/2024 @EXCISION OF MEDIASTINAL TUMOR (WRVU 19.55) performed by Bobby Loja MD at [facility] MAIN OR PRO INSERT INTRA-AORTIC BALLOON ASST DEVICE PERCUTANEOUS N/A 06/13/2024 @INSERTION OF IABP,PERCUTANEOUS (WRVU 4.84) performed by Nuha Shen MD at [facility] CATH LABS PRO UNLISTED CARDIAC SURG PROCEDURE N/A 06/14/2024 EXPLORATION AND OVERSEW ATRIAL APPENDAGE (WRVU 5.94) performed by Bobby Loja MD at [facility] [place] Prior To Admission Medications Medications Prior [...] y.o. male with a PMHx of previous SC s/p PCI x3, ICM/HFrEF (LVEF 30%) s/p ICD, DMII, HTN, HLD, remote melanoma, and smoker who presented to [facility] last night via EMS after developing acute, severe chest pain while watching TV. Patient was ruled in for STEMI, given TNK, ASA, plavix, heparin gtt, and sent to [facility] for coronary angiography. [facility] demonstrated severely calcified left coronary system with notable LCx 75/80% lesions and RIVER RAT OM1 with ISR with collateral retrograde filling, [...] at OSH. He was brought to the radiographer cardiac catheterization which showed severely calcified left coronary system with notable LCx 75/80% lesions and RIVER RAT OM1 with ISR with collateral retrograde filling, [...] 2 tablespoons of dried fruit. Milk and ki-wtwdj-yzslt yogurt have 15 grams of carbs in a serving. A serving is 1 cup of milk or 3/4 cup (6 oz) of xi-mntrv-cnktl yogurt. Starchy vegetables have 15 grams of [...] Bobby Loja and/or the Cardiac Surgery Physician Chocolate Finisher Operator Team may be reached at . [...] Dr. Bobby Loja. You may use a Sweeny Track or treadmill but avoid any pulling [...] friends, go to a movie, go to scientology, etc. Heavy activities: No hunting, skiing, jogging, [...] should resume a low fat, low cholesterol, [place] Heart [employer] Diet/Diabetic diet. Driving: No driving [...] while being managed by your PCP and/or Mortgage Loan Processing Clerk. For future medication refills, please refer to your PCP and/or Mortgage Loan Processing Clerk after your discharge from our service. Thank you REMOVE CHEST TUBE SUTURES ON OR AFTER 06/24/2024 Home oxygen therapy: N/A Follow up appointments: You should follow up with your PCP, Mauro Berumen MD, in 1-2 weeks. You should follow up with your Mortgage Loan Processing Clerk, Dr CARDENAS. You have an appointment with your Cardiac Surgeon, Dr. Bobby Loja, in 4 wks. Cardiac Rehabilitation: George Mehta was seen today regarding participation in the outpatient Phase 2 Cardiac Rehabilitation at [facility]. The patient agrees to a referral to this program. The referral will be sent at discharge and the patient should be contacted by the program within 1-2 weeks from discharge. Future Appointments and Orders Future Orders Complete By Expires Referral to Cardiac Rehab [[id number] Custom] As directed Process Instructions: If no progress note charted, please enter Clinical details in comments. Scheduling Instructions: Questions: My question or request is: s/p CABG- cardiac rehab at [facility] Referral to Home Health [[id number] Custom] As directed Process Instructions: If no progress note charted, please enter Clinical details in comments. Scheduling Instructions: Comments: Please evaluate George Mehta for admission to Home Health. [address] [facility] [address] (home) Date of : 1955 Inpatient DOCUMENTATION FOR VNA SERVICES (INCLUDING THOSE PATIENTS WITH MEDICARE COVERAGE REQUIRINGHOME VNA SERVICES AND/OR HOSPICE SERVICES) PATIENT'S LOCATION: George Mehta [address] [facility] [address] (home) Telephone Information: Writer's Name: self In discussion with the attending physician, it is certified that this patient is under their care and that they, or a Nurse Practitioner, or Physician Chocolate Finisher Operator who is working directly with them, [...] for services as follows: HOME HEALTH AGENCY: [facility]. [address] [place] [id number] RN orders: Cardiopulmonary assessment, incisional assessment, assess [...] issues please call the Cardiology Office at [phone] FOR MEDICARE ONLY: (please delete this section [...] care: As above. Signed: KEILA HANLEY APRN [facility] Section of Cardiac Surgery [facility] [place] [address] FAX [phone] Date: 06/21/2024 CC: MD Antonino Tinajero Joshua R, PA [address] [place] [address] [place] [address] documented in this encounter Discharge Instructions * [...] 2 tablespoons of dried fruit. Milk and ae-yggds-udmde yogurt have 15 grams of carbs in a serving. A serving is 1 cup of milk or 3/4 cup (6 oz) of tk-oikkq-zsuxa yogurt. Starchy vegetables have 15 grams of [...] Bobby Loja and/or the Cardiac Surgery Physician Chocolate Finisher Operator Team may be reached at . [...] Dr. Bobby Loja. You may use a Sweeny Track or treadmill but avoid any pulling [...] friends, go to a movie, go to scientology, etc. Heavy activities: No hunting, skiing, jogging, [...] should resume a low fat, low cholesterol, [place] Heart [employer] Diet/Diabetic diet. Driving: No driving [...] while being managed by your PCP and/or Mortgage Loan Processing Clerk. For future medication refills, please refer to your PCP and/or Mortgage Loan Processing Clerk after your discharge from our service. Thank you REMOVE CHEST TUBE SUTURES ON OR AFTER 06/24/2024 Home oxygen therapy: N/A Follow up appointments: You should follow up with your PCP, Mauro Berumen MD, in 1-2 weeks. You should follow up with your Mortgage Loan Processing Clerk, Dr CARDENAS. You have an appointment with your Cardiac Surgeon, Dr. Bobby Loja, in 4 wks. Cardiac Rehabilitation: George Mehta was seen today regarding participation in the outpatient Phase 2 Cardiac Rehabilitation at [facility]. The patient agrees to a referral [...] 06/21/2024 8:32 AM EST During [facility] Purposeful Rounding, an assessment of your patient's venous access was performed [facility] theVascular Access Service. The following tasks [...] 06/21/2024 8:31 AM EST During [facility] Purposeful Rounding, an assessment of your patient's venous access was performed [facility] theVascular Access Service. The following tasks [...] or weekly) [] Other * Alejandra Baumann, CODING COMPLIANCE SPECIALIST - 06/21/2024 7:05 AM EST Follow Up [...] MARIALUISA clipping. PMH of chronic HFrEF s/p MACHINE PAN GREASER/ICD, IDDM2, HTN, HLD, remote melanoma, active smoker. [...] juice or regular (not diet) soda 6 Kaldooraavers small box of raisins 4 glucose tablets [...] 2 tablespoons of dried fruit. Milk and bp-eilcl-srjtp yogurt have 15 grams of carbs in a serving. A serving is 1 cup of milk or 3/4 cup (6 oz) of do-xvzhh-xufre yogurt. Starchy vegetables have 15 grams of [...] cheese, and peanut butter. Alejandra Baumann APRN [facility] Endocrinology Diabetes Management Pager [phone] Weekends please page [phone] * Eric Packer PA - 06/20/2024 7:44 AM EST Cardiac Surgery Progress Note George Mehta is a 69 y.o. male with a history of CAD s/p multiple PCI who presented with an anterior STEMI and was given lytics. Cath showed MV CAD without culprit vessel. He is now 6 Days Post-OpCABGx3 and MARIALUISA clipping. PMH of chronic HFrEF s/p MACHINE PAN GREASER/ICD, IDDM2, HTN, HLD, remote melanoma, active smoker. [...] 89 Pt is followed by heart failure saw feeder at [facility] #IDDM2 DM team following Lantus, SSI Carb controlled diet #Active smoker Duoneb prn Dispo: Floor, full code, home when ready Discussed with attending surgeon on rounds this morning. 06/20/2024 Between the hours of 1800 - 0600 and on the weekends please page [phone]. * Alejandra Baumann, JOSÉ ANTONIO - 06/20/2024 7:21 AM EST Follow Up Diabetes Consult Patient Interview Blood glucose values and insulin use reviewed. sales account specialist BG to 59 despite decrease in [...] MARIALUISA clipping. PMH of chronic HFrEF s/p MACHINE PAN GREASER/ICD, IDDM2, HTN, HLD, remote melanoma, active smoker. sales account specialist BG to 59 despite decrease in [...] based on ISF 20 Alejandra Baumann APRN [facility] Endocrinology Diabetes Management Pager [phone] Weekends please page [phone] Insulin Discharge Instructions Preliminary Diabetes Discharge Instructions [...] juice or regular (not diet) soda 6 Kaldooraavers small box of raisins 4 glucose tablets [...] 2 tablespoons of dried fruit. Milk and eu-jchcv-sorxc yogurt have 15 grams of carbs in a serving. A serving is 1 cup of milk or 3/4 cup (6 oz) of gn-xkbhn-blqmg yogurt. Starchy vegetables have 15 grams of [...] MARIALUISA clipping. PMH of chronic HFrEF s/p MACHINE PAN GREASER/ICD, IDDM2, HTN, HLD, remote melanoma, active smoker. [...] 90 Pt is followed by heart failure saw feeder at [facility] Tx to floor #IDDM2 DM team following pre-op Lantus, SSI Carb controlled diet #Active smoker Duoneb prn Dispo: Floor status, full code Discussed with attending surgeon on rounds this morning. Jeffy Hood MD 06/19/2024 Between the hours of 1800 - 0600 and on the weekends please page [phone]. * Alejandra Baumann, CODING COMPLIANCE SPECIALIST - 06/19/2024 7:09 AM EST Follow Up Diabetes Consult Patient Interview Blood glucose values and insulin use reviewed. Jardiance added back yesterday, bevel polisher low BGto 51. Glargine reduced to 45 [...] MARIALUISA clipping. PMH of chronic HFrEF s/p MACHINE PAN GREASER/ICD, IDDM2, HTN, HLD, remote melanoma, active smoker. Jardiance added back yesterday. sales account specialist low BG to 51. Glargine reduced [...] 2 tablespoons of dried fruit. Milk and fv-hxyzw-cxmfp yogurt have 15 grams of carbs in a serving. A serving is 1 cup of milk or 3/4 cup (6 oz) of qt-yniux-zkknk yogurt. Starchy vegetables have 15 grams of [...] cheese, and peanut butter. Alejandra Baumann APRN [facility] Endocrinology Diabetes Management Pager [phone] Weekends please page [phone] * Hilda Resendez PTA - 06/18/2024 9:19 AM EST Physical Therapy Note 2 Patient profile: George Mehta is a 69 y.o. male with a history of CAD s/p multiple PCI who presented with an anterior STEMI and was given lytics. Cath showed MV CAD without culprit vessel. He is now 1 Day Post-Op CABGx3 and MARIALUISA clipping. PMH of chronic HFrEF s/p MACHINE PAN GREASER/ICD, IDDM2, HTN, HLD, remote melanoma, active smoker. Interval History: Per last cardiac surgery note on 06/18/2024 Cr improved 1.4 on lasix 40 iv bid -1.5L, made 2.5L urine Coreg, entresto restarted Floor status Social History: Pt lives with his in a 1 level apartment with no steps to enter. 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 He sleeps [...] least restrictive device Time IN / OUT: 4608-1650 Total Time: 11 minutes; TEF 1 Hilda Resendez PTA Pager: [phone] Physical Therapy Inpatient Rehabilitation Department * Keila [...] MARIALUISA clipping. PMH of chronic HFrEF s/p MACHINE PAN GREASER/ICD, IDDM2, HTN, HLD, remote melanoma, active smoker. [...] 90 Pt is followed by heart failure saw feeder at [facility], will get name for f/up appt Tx to floor #IDDM2 DM team following pre-op Lantus, SSI Carb controlled diet ? Restarting jardiance #Active smoker Duoneb prn Dispo: CVCC, Full code, tx to floor Discussed with attending surgeon on rounds this morning. KEILA HANLEY APRN 06/18/2024 Between the hours of 1800 - 0600 and on the weekends please page [phone]. * Alejandra Baumann APRN - 06/17/2024 3:29 [...] MARIALUISA clipping. PMH of chronic HFrEF s/p MACHINE PAN GREASER/ICD, IDDM2, HTN, HLD, remote melanoma, active smoker. [...] based on ISF 20 Alejandra Baumann APRN [facility] Endocrinology Diabetes Management Pager [phone] Weekends please page [phone] 35 minutes were spent over the course [...] MARIALUISA clipping. PMH of chronic HFrEF s/p MACHINE PAN GREASER/ICD, IDDM2, HTN, HLD, remote melanoma, active smoker. [...] 0600 and on the weekends please page [phone]. * Raymond Carlton MD - 06/16/2024 1:11 PM EST CARDIAC CRITICAL CARE ATTENDING STAFF PROGRESS NOTE Patient seen and examined. George Mehta is a 69 y.o. male with: Active Hospital Problems Diagnosis STEMI (ST elevation myocardial infarction) Cardiac resynchronization therapy defibrillator (MACHINE PAN GREASER-D) - Medtronic Amplia Cardiomyopathy, ischemic Acute on chronic heart failure with reduced ejection fraction (HFrEF, <= 40%) Coronary artery disease involving moapa coronary artery of moapa heart without angina pectoris Type 2 diabetes [...] unless consulted in the interim. RICHA Simmons Criminal Judge * Octaviano Horvath PA - 06/16/2024 8:07 AM EST Cardiac Surgery Progress Note George Mehta is a 69 y.o. male with a history of CAD s/p multiple PCI who presented with an anterior STEMI and was given lytics. Cath showed MV CAD without culprit vessel. He is now 2 Days Post-OpCABGx3 and MARIALUISA clipping. PMH of chronic HFrEF s/p MACHINE PAN GREASER/ICD, IDDM2, HTN, HLD, remote melanoma, active smoker. [...] 0600 and on the weekends please page [phone]. * Jono Fernandez PT - 06/15/2024 4:09 PM EST Physical Therapy Evaluation Patient profile: George Mehta is a 69 y.o. male with a history of CAD s/p multiple PCI who presented with an anterior STEMI and was given lytics. Cath showed MV CAD without culprit vessel. He is now 1 Day Post-Op CABGx3 and MARIALUISA clipping. PMH of chronic HFrEF s/p MACHINE PAN GREASER/ICD, IDDM2, HTN, HLD, remote melanoma, active smoker. 24h Events: From OR on Dobutamine IABP removed Bedrest ended ~2100, sedation weaned Extubated ~0200 Dobutamine weaned to 1 this morning, CI 2.6, shut off and repeat CI 2.4 Social History: Pt lives with his in a 1 level apartment with no steps to enter. 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 He sleeps [...] outlined inthis evaluation. JONO FERNANDEZ, PT Pager: [phone] Physical Therapy Inpatient Rehabilitation Department Time IN / OUT: 4852-4121 Total Time: 33 (eval) minutes * Alejandra Baumann APRN - 06/15/2024 11:39 AM EST Follow Up Diabetes Consult Patient Interview Blood glucose values and insulin use reviewed. Pt remains on an insulin drip today following [id number] MARIALUISA clipping. George continues to complain of [...] MARIALUISA clipping. PMH of chronic HFrEF s/p MACHINE PAN GREASER/ICD, IDDM2, HTN, HLD, remote melanoma, active smoker. [...] based on ISF 20 Alejandra Baumann APRN [facility] Endocrinology Diabetes Management Pager [phone] Weekends please page [phone] 50 minutes were spent over the course [...] elevation myocardial infarction) Cardiac resynchronization therapy defibrillator (MACHINE PAN GREASER-D) - Medtronic Amplia Cardiomyopathy, ischemic Acute on chronic heart failure with reduced ejection fraction (HFrEF, <= 40%) Coronary artery disease involving moapa coronary artery of moapa heart without angina pectoris Type 2 diabetes [...] with h/o DM, CAD with prior PCI, MACHINE PAN GREASER-D who presented with crushing chest pain, found [...] MARIALUISA clipping. PMH of chronic HFrEF s/p MACHINE PAN GREASER/ICD, IDDM2, HTN, HLD, remote melanoma, active smoker. [...] sternotomy dressing CDI, saphenectomy dressing CDi Tubes/Lines/Drains: [place], RIJ, A-line, Mediastinal marcos and bilateral pleural [...] 0600 and on the weekends please page [phone]. * Yoli Donaldson ADMINISTRATIVE CLERK - 06/15/2024 5:35 AM EST AMV [...] with h/o DM, CAD with prior PCI, MACHINE PAN GREASER-D who presented with crushing chest pain, found [...] with h/o DM, CAD with prior PCI, MACHINE PAN GREASER-D who presented with crushing chest pain, found [...] 0600 and on the weekends please page [phone]. * Chloé Cortez - 06/14/2024 9:36 AM [...] unless consulted in the interim. Chloé Cortez Strategic Account Director * Jim Benites MD - 06/13/2024 1:15 [...] - Mildly dilated left ventricle size with pyjxkbwh-kc-ioagenhe decreased LV systolic function. LV ejection fraction [...] ACS/crushing chest pain, likely due to lateral SC, found to have surgical CAD with viability [...] (abstinent since admission), ASCVD with multiple prior SC and PCIs, ICM/HFrEF LVEF 30% (all territories [...] elevation myocardial infarction) Cardiac resynchronization therapy defibrillator (MACHINE PAN GREASER-D) - Medtronic Amplia Cardiomyopathy, ischemic Acute on chronic heart failure with reduced ejection fraction (HFrEF, <= 40%) Coronary artery disease involving moapa coronary artery of moapa heart without angina pectoris Type 2 diabetes [...] PCP: Mauro Berumen MD PCP phone number: [phone] Date of Admission: 06/02/2024 ( Hospital Day 10 days ) Attending:Ethel Carrillo MD ID: 69 y.o. male with a h/o DM type 2, HTN, HLD, current smoker (2-3 cigarettes/day), HFrEF with anICD for low EF (~30%), and CAD with prior SC x3 with JENNA placed in [place], [facility], PAD, presented to [facility] with 1 hour of retrosternal CP (05/13) while watching TV, found to have STEMI. Active Problems: Active Hospital Problems Diagnosis STEMI (ST elevation myocardial infarction) Cardiac resynchronization therapy defibrillator (MACHINE PAN GREASER-D) - Medtronic Amplia Cardiomyopathy, ischemic Acute on chronic heart failure with reduced ejection fraction (HFrEF, <= 40%) Coronary artery disease involving moapa coronary artery of moapa heart without angina pectoris Type 2 diabetes [...] in the last 7068 hours. Invalid input(s): [id number] Recent Labs 06/12/24 0425 06/11/24 2356 06/11/24 2025 06/11/24 1624 06/11/24 1108 06/11/24 0748 06/11/24 0357 06/11/24 0050 06/10/24 1922 06/10/24 1735 06/10/24 1125 06/10/24 0746 POCGLU 132 135 210* 81 233* 184 132 144 236* 123 216* 206* Heme No results for input(s): LDH, HAPTOGLOBIN, URICACID in the last 168 hours. ABG (Arterial Blood Gas) No results found for: PHART, PO2ART, MNQ4TNO, LZY8HNB Microbiology: Microbiology Results (Last 30 days) No results found for the last 720 hours. Imaging: Results for orders placed or performed during the hospital encounter of 06/02/24 XR Chest One View (Exam End: 06/03/2024 2:41 AM) Result Value WORKSTATION ID [id number] Impression No radiographically evident acute cardiopulmonary process. Thank you for letting us participate in the care of this patient. If you are a health care provider and have any questions regarding this report, please contact the number below. For patients who have questions please contact the health care rep that requested your imaging first. Cardiac Morphology Function wwo Contrast (Exam End: 06/07/2024 1:10 PM) Result Value WORKSTATION ID [id number] Impression - Findings consistent with an ischemic [...] - Mildly dilated left ventricle size with lwxoaezi-au-cvnulgmv decreased LV systolic function. LV ejection fraction [...] have questions please contact the health care rep that requested your imaging first. Chest wo Contrast (Generic) (Exam End: 06/03/2024 4:33 PM) Result Value WORKSTATION ID [id number] Impression Cardiomegaly. Biventricular ICD leads in place. Thank you for letting us participate in the care of this patient. If you are a health care provider and have any questions regarding this report, please contact the number below. For patients who have questions please contact the health care rep that requested your imaging first. Chest PA & Lateral (Generic) (Exam End: 06/07/2024 7:03 AM) Result Value WORKSTATION ID [id number] Impression Biventricular ICD leads intact and in [...] have questions please contact the health care rep that requested your imaging first. : Limited echo performed by fellow professional sports scout to assess LV function. Left ventricle is [...] ischemic cardiomyopathy with HFrEF (~30% EF), prior SC with stents, DM type 2, HTN, HLD, active smoker, presented with anterior STEMI. Angiography revealed severe multivessel CAD with extensive calcification and YUE 3 flow in all vessels, without a clear culprit lesion. Currently pain-free after TNK, Plavix, ASA, and heparin, with mildly elevated LVEDP at 40 mmHg and mild volume overload. 06/12/24: Patient stable, asymptomatic. Plan to go to radiographer cardiac catheterization for balloon pump tomorrow, then willgo to [...] CODE Dain Colón MD Cardiology, M1-S2, Pager #[phone] 06/12/24 Associated attestation - Ethel Carrillo MD [...] (abstinent since admission), ASCVD with multiple prior SC and PCIs, ICM/HFrEF LVEF 30% (all territories [...] of two midnights or is on the [facility] inpatient only procedure list (status C) due to: acute myocardial infarction requiring titration of IV medication and fluid monitoring and decompensated congestive heart failure requiring IV medication and fluid monitoring Ethel Carrillo MD Cardiovascular Medicine Personal Pager [phone] 06/12/2024 9:12 PM * PastorAlejandra, CODING COMPLIANCE SPECIALIST - 06/11/2024 4:21 PM EST Images [...] too aggressive, suggest ICR 1:6 (rule of [id number] = 6.25). George is up and walking [...] ischemic cardiomyopathy with HFrEF (~30% EF), prior SC with stents, DM type 2, HTN, HLD, [...] ac, metformin 1000mg BID Alejandra Baumann APRN [facility] Endocrinology Diabetes Management Pager [phone] Weekends please page [phone] 35 minutes were spent over the course [...] PCP: Mauro Berumen MD PCP phone number: [phone] Date of Admission: 06/02/2024 ( Hospital Day 9 days ) Attending:Melida Valdes MD ID: 69 y.o. male with a h/o DM type 2, HTN, HLD, current smoker (2-3 cigarettes/day), HFrEF with anICD for low EF (~30%), and CAD with prior SC x3 with JENNA placed in [place], Melanoma, PAD, presented to [facility] with 1 hour of retrosternal CP (05/13) while watching TV, found to have STEMI. Active Problems: Active Hospital Problems Diagnosis STEMI (ST elevation myocardial infarction) Cardiac resynchronization therapy defibrillator (MACHINE PAN GREASER-D) - Medtronic Amplia Cardiomyopathy, ischemic Acute on chronic heart failure with reduced ejection fraction (HFrEF, <= 40%) Coronary artery disease involving moapa coronary artery of moapa heart without angina pectoris Type 2 diabetes [...] in the last 7068 hours. Invalid input(s): [id number] Recent Labs 06/11/24 0357 06/11/24 0050 06/10/24 1922 06/10/24 1735 06/10/24 1125 06/10/24 0746 06/10/24 0423 06/10/24 0005 06/09/24 2036 06/09/24 1727 06/09/24 1152 06/09/24 0810 POCGLU 132 144 236* 123 216* 206* 154 125 197 174 211* 209* Heme No results for input(s): LDH, HAPTOGLOBIN, URICACID in the last 168 hours. ABG (Arterial Blood Gas) No results found for: PHART, PO2ART, JKC2CKX, ZGG5SGF Microbiology: Microbiology Results (Last 30 days) No results found for the last 720 hours. Imaging: Results for orders placed or performed during the hospital encounter of 06/02/24 XR Chest One View (Exam End: 06/03/2024 2:41 AM) Result Value WORKSTATION ID [id number] Impression No radiographically evident acute cardiopulmonary process. Thank you for letting us participate in the care of this patient. If you are a health care provider and have any questions regarding this report, please contact the number below. For patients who have questions please contact the health care rep that requested your imaging first. Cardiac Morphology Function wwo Contrast (Exam End: 06/07/2024 1:10 PM) Result Value WORKSTATION ID [id number] Impression - Findings consistent with an ischemic [...] - Mildly dilated left ventricle size with eopwibpm-bd-yifmkizg decreased LV systolic function. LV ejection fraction [...] have questions please contact the health care rep that requested your imaging first. Chest wo Contrast (Generic) (Exam End: 06/03/2024 4:33 PM) Result Value WORKSTATION ID [id number] Impression Cardiomegaly. Biventricular ICD leads in place. Thank you for letting us participate in the care of this patient. If you are a health care provider and have any questions regarding this report, please contact the number below. For patients who have questions please contact the health care rep that requested your imaging first. Chest PA & Lateral (Generic) (Exam End: 06/07/2024 7:03 AM) Result Value WORKSTATION ID [id number] Impression Biventricular ICD leads intact and in [...] have questions please contact the health care rep that requested your imaging first. : Limited echo performed by fellow professional sports scout to assess LV function. Left ventricle is [...] Infusions: heparin (porcine) infusion 1,400 Units/hr (06/10/24 4363) PRN Meds:.insulin lispro, glucose 40% oral geL [...] ischemic cardiomyopathy with HFrEF (~30% EF), prior SC with stents, DM type 2, HTN, HLD, [...] on placing this weekend and transfer to [facility], likely Friday. #ASCVD / STEMI: -Holding Plavix; continue ASA and heparin gtt. -Monitor telmetry -TTE -Viability planning per CT surgery - CT chest (complete) - Carotid duplex bilat (complete) - Cardiac MR (scheduled today Thursday 06/07) - Will need balloon pump prior to CABG on Friday, likely Friday then transfer to [facility] #HFrEF (Ischemic Cardiomyopathy): -Monitor I&O [...] CODE Dain Colón MD Cardiology, M1-S2, Pager #[phone] 06/11/24 Associated attestation - Ethel Carrillo MD [...] (abstinent since admission), ASCVD with multiple prior SC and PCIs, ICM/HFrEF LVEF 30% (all territories [...] of two midnights or is on the [facility] inpatient only procedure list (status C) due to: acute myocardial infarction requiring titration of IV medication and fluid monitoring and decompensated congestive heart failure requiring IV medication and fluid monitoring Ethel Carrillo MD Cardiovascular Medicine Personal Pager [phone] 06/11/2024 9:35 PM * Hilary Belle - 06/10/2024 12:39 PM EST Nutrition Services Note George Mehta is a 69 y.o. male Reason for intervention: hospital day 9 Nutrition Plan: Continue diet order: 60/60/75 CHO Level 2 Encourage good PO Lasix and Insulin noted Monitor weight Patient scheduled for a hospital day 9 nutrition evaluation. Senior Director Insight attempted to meet with pt at bedside [...] unless consulted in the interim. Hilary Belle Criminal Judge * Mariia Montero RN - 06/10/2024 12:23 PM EST I have met with the patient to: discuss discharge planning needs. provide the [facility] [place], Office of Care Management letter from the Manager Transportation Planning pertaining to rehab referrals. provide a letter describing our affiliations within the [facility] and educate about their right to choose where referrals are sent. provide a list of Home Health Agencies / Durable Medical Equipment vendors which serve their preferred geographic area. provided patient with CMS Star Quality Rating handout. They have requested referrals to: [facility] [address] [place] [id number] RN / PT Anticipated d/c date: 06/20/24 Note routed to a Cellar Packer who will communicate referrals to facilities and provide any required information. * Dain Colón MD - 06/10/2024 7:17 AM EST Images from the original note were not included. . Cardiology Progress Note Patient info: Name: George Mehta : 1955 PCP: Mauro Berumen MD PCP phone number: [phone] Date of Admission: 06/02/2024 ( Hospital Day 8 days ) Attending:Melida Valdes MD ID: 69 y.o. male with a h/o DM type 2, HTN, HLD, current smoker (2-3 cigarettes/day), HFrEF with anICD for low EF (~30%), and CAD with prior SC x3 with JENNA placed in [place], Melanoma, PAD, presented to [facility] with 1 hour of retrosternal CP (05/13) while watching TV, found to have STEMI. Active Problems: Active Hospital Problems Diagnosis STEMI (ST elevation myocardial infarction) Cardiac resynchronization therapy defibrillator (MACHINE PAN GREASER-D) - Medtronic Amplia Cardiomyopathy, ischemic Acute on chronic heart failure with reduced ejection fraction (HFrEF, <= 40%) Coronary artery disease involving moapa coronary artery of moapa heart without angina pectoris Type 2 diabetes [...] in the last 7068 hours. Invalid input(s): [id number] Recent Labs 06/10/24 0423 06/10/24 0005 06/09/24 2036 06/09/24 1727 06/09/24 1152 06/09/24 0810 06/09/24 0440 06/09/24 0034 06/08/24 2027 06/08/24 1616 06/08/24 1235 06/08/24 0810 POCGLU 154 125 197 174 211* 209* 131 186 176 159 226* 190 Heme No results for input(s): LDH, HAPTOGLOBIN, URICACID in the last 168 hours. ABG (Arterial Blood Gas) No results found for: PHART, PO2ART, ZWA8NKO, ZJR6PMV Microbiology: Microbiology Results (Last 30 days) No results found for the last 720 hours. Imaging: Results for orders placed or performed during the hospital encounter of 06/02/24 XR Chest One View (Exam End: 06/03/2024 2:41 AM) Result Value WORKSTATION ID [id number] Impression No radiographically evident acute cardiopulmonary process. Thank you for letting us participate in the care of this patient. If you are a health care provider and have any questions regarding this report, please contact the number below. For patients who have questions please contact the health care rep that requested your imaging first. Cardiac Morphology Function wwo Contrast (Exam End: 06/07/2024 1:10 PM) Result Value WORKSTATION ID [id number] Impression - Findings consistent with an ischemic [...] - Mildly dilated left ventricle size with vxtemlci-jo-aanrcfof decreased LV systolic function. LV ejection fraction [...] have questions please contact the health care rep that requested your imaging first. Chest wo Contrast (Generic) (Exam End: 06/03/2024 4:33 PM) Result Value WORKSTATION ID [id number] Impression Cardiomegaly. Biventricular ICD leads in place. Thank you for letting us participate in the care of this patient. If you are a health care provider and have any questions regarding this report, please contact the number below. For patients who have questions please contact the health care rep that requested your imaging first. Chest PA & Lateral (Generic) (Exam End: 06/07/2024 7:03 AM) Result Value WORKSTATION ID [id number] Impression Biventricular ICD leads intact and in [...] have questions please contact the health care rep that requested your imaging first. : Limited echo performed by fellow professional sports scout to assess LV function. Left ventricle is [...] ischemic cardiomyopathy with HFrEF (~30% EF), prior SC with stents, DM type 2, HTN, HLD, [...] on placing this weekend and transfer to [facility], likely Friday. #ASCVD / STEMI: -Holding Plavix; continue ASA and heparin gtt. -Consult CT surgery for potential open revascularization. -Monitor telmetry -TTE -Viability planning per CT surgery - CT chest (complete) - Carotid duplex bilat (complete) - Cardiac MR (scheduled today Thursday 06/07) - Will need balloon pump prior to CABG on Friday, likely Friday then transfer to [facility] #HFrEF (Ischemic Cardiomyopathy): -Monitor I&O [...] CODE Dain Colón MD Cardiology, M1-S2, Pager #[phone] 06/10/24 Associated attestation - Melida Valdes MD [...] a lytic and brought directly to the Ship Pur[facility]. Cardiac catheterization demonstrated multivessel disease with severe [...] who is agreeable Melida Valdes MD Staff Mortgage Loan Processing Clerk * Cherelle Fregoso, JOSÉ ANTONIO - 06/09/2024 [...] ischemic cardiomyopathy with HFrEF (~30% EF), prior SC with stents, DM type 2, HTN, HLD, [...] PCP: Mauro Berumen MD PCP phone number: [phone] Date of Admission: 06/02/2024 ( Hospital Day 7 days ) Attending:Melida Valdes MD ID: 69 y.o. male with a h/o DM type 2, HTN, HLD, current smoker (2-3 cigarettes/day), HFrEF with anICD for low EF (~30%), and CAD with prior SC x3 with JENNA placed in [place], Melanoma, PAD, presented to [facility] with 1 hour of retrosternal CP (05/13) while watching TV, found to have STEMI. Active Problems: Active Hospital Problems Diagnosis STEMI (ST elevation myocardial infarction) Acute on chronic heart failure with reduced ejection fraction (HFrEF, <= 40%) Coronary artery disease involving moapa coronary artery of moapa heart without angina pectoris Type 2 diabetes [...] in the last 7068 hours. Invalid input(s): [id number] Recent Labs 06/09/24 0440 06/09/24 0034 06/08/24 2027 06/08/24 1616 06/08/24 1235 06/08/24 0810 06/08/24 0409 06/07/24 2357 06/07/24 2005 06/07/24 1631 06/07/24 1105 06/07/24 1103 POCGLU 131 186 176 159 226* 190 151 188 118 174 221* 250* Heme No results for input(s): LDH, HAPTOGLOBIN, URICACID in the last 168 hours. ABG (Arterial Blood Gas) No results found for: PHART, PO2ART, PHM6WMP, IXB8WNR Microbiology: Microbiology Results (Last 30 days) No results found for the last 720 hours. Imaging: Results for orders placed or performed during the hospital encounter of 06/02/24 XR Chest One View (Exam End: 06/03/2024 2:41 AM) Result Value WORKSTATION ID [id number] Impression No radiographically evident acute cardiopulmonary process. Thank you for letting us participate in the care of this patient. If you are a health care provider and have any questions regarding this report, please contact the number below. For patients who have questions please contact the health care rep that requested your imaging first. Cardiac Morphology Function wwo Contrast (Exam End: 06/07/2024 1:10 PM) Result Value WORKSTATION ID [id number] Impression - Findings consistent with an ischemic [...] - Mildly dilated left ventricle size with kfagfwgt-on-kmvxdlvx decreased LV systolic function. LV ejection fraction [...] have questions please contact the health care rep that requested your imaging first. Chest wo Contrast (Generic) (Exam End: 06/03/2024 4:33 PM) Result Value WORKSTATION ID [id number] Impression Cardiomegaly. Biventricular ICD leads in place. Thank you for letting us participate in the care of this patient. If you are a health care provider and have any questions regarding this report, please contact the number below. For patients who have questions please contact the health care rep that requested your imaging first. Chest PA & Lateral (Generic) (Exam End: 06/07/2024 7:03 AM) Result Value WORKSTATION ID [id number] Impression Biventricular ICD leads intact and in stable position I have personally reviewed the image(s) and the resident's interpretation and agree with the findings, Sutart Aponte MD at 06/07/2024 10:45 AM Thank you for letting us participate in the care of this patient. If you are a health care provider and have any questions regarding this report, please contact the number below. For patients who have questions please contact the health care rep that requested your imaging first. : Limited echo performed by fellow professional sports scout to assess LV function. Left ventricle is [...] Infusions: heparin (porcine) infusion 1,400 Units/hr (06/08/24 247) PRN Meds:.glucose 40% oral geL OR dextrose [...] ischemic cardiomyopathy with HFrEF (~30% EF), prior SC with stents, DM type 2, HTN, HLD, [...] CODE Dain Colón MD Cardiology, M1-S2, Pager #[phone] 06/09/24 Associated attestation - Melida Valdes MD [...] a lytic and brought directly to the Ship Pur[facility]. Cardiac catheterization demonstrated multivessel disease with severe [...] insertion low EF. Melida Valdes MD Staff Mortgage Loan Processing Clerk * Alejandra Baumann, CODING COMPLIANCE SPECIALIST - 06/08/2024 4:10 PM EST Images [...] ischemic cardiomyopathy with HFrEF (~30% EF), prior SC with stents, DM type 2, HTN, HLD, [...] to optimize glucose control Alejandra Baumann APRN [facility] [place] Endocrinology Diabetes Management Pager [phone] Weekends please page [phone] 35 minutes were spent over the course [...] PCP: Mauro Berumen MD PCP phone number: [phone] Date of Admission: 06/02/2024 ( Hospital Day 6 days ) Attending:Melida Valdes MD ID: 69 y.o. male with a h/o DM type 2, HTN, HLD, current smoker (2-3 cigarettes/day), HFrEF with anICD for low EF (~30%), and CAD with prior SC x3 with JENNA placed in [place], Melanoma, PAD, presented to [facility] with 1 hour of retrosternal CP (05/13) while watching TV, found to have STEMI. Active Problems: Active Hospital Problems Diagnosis STEMI (ST elevation myocardial infarction) Acute on chronic heart failure with reduced ejection fraction (HFrEF, <= 40%) Coronary artery disease involving moapa coronary artery of moapa heart without angina pectoris Type 2 diabetes [...] in the last 7068 hours. Invalid input(s): [id number] Recent Labs 06/08/24 0409 06/07/24 2357 06/07/24 2005 06/07/24 1631 06/07/24 1105 06/07/24 1103 06/07/24 0745 06/07/24 0425 06/07/24 0008 06/06/24 2018 06/06/24 1539 06/06/24 1339 POCGLU 151 188 118 174 221* 250* 175 127 182 143 147 317* Heme No results for input(s): LDH, HAPTOGLOBIN, URICACID in the last 168 hours. ABG (Arterial Blood Gas) No results found for: PHART, PO2ART, AZB7ZLT, SBY6OSD Microbiology: Microbiology Results (Last 30 days) No results found for the last 720 hours. Imaging: Results for orders placed or performed during the hospital encounter of 06/02/24 XR Chest One View (Exam End: 06/03/2024 2:41 AM) Result Value WORKSTATION ID [id number] Impression No radiographically evident acute cardiopulmonary process. Thank you for letting us participate in the care of this patient. If you are a health care provider and have any questions regarding this report, please contact the number below. For patients who have questions please contact the health care rep that requested your imaging first. Cardiac Morphology Function wwo Contrast (Exam End: 06/07/2024 1:10 PM) Result Value WORKSTATION ID [id number] Impression - Findings consistent with an ischemic [...] - Mildly dilated left ventricle size with diykabia-ek-knnwgheo decreased LV systolic function. LV ejection fraction [...] have questions please contact the health care rep that requested your imaging first. Chest wo Contrast (Generic) (Exam End: 06/03/2024 4:33 PM) Result Value WORKSTATION ID [id number] Impression Cardiomegaly. Biventricular ICD leads in place. Thank you for letting us participate in the care of this patient. If you are a health care provider and have any questions regarding this report, please contact the number below. For patients who have questions please contact the health care rep that requested your imaging first. Chest PA & Lateral (Generic) (Exam End: 06/07/2024 7:03 AM) Result Value WORKSTATION ID [id number] Impression Biventricular ICD leads intact and in [...] have questions please contact the health care rep that requested your imaging first. : Limited echo performed by fellow professional sports scout to assess LV function. Left ventricle is [...] ischemic cardiomyopathy with HFrEF (~30% EF), prior SC with stents, DM type 2, HTN, HLD, [...] CODE Dain Colón MD Cardiology, M1-S2, Pager #[phone] 06/08/24 Associated attestation - Melida Valdes MD [...] a lytic and brought directly to the Ship Purser. Cardiac catheterization demonstrated multivessel disease with severe [...] Otherwise clinically stable Melida Valdes MD Staff Mortgage Loan Processing Clerk * Ross Manuel PA - 06/07/2024 12:00 PM EST Cardiac Electrophysiology CIED Interrogation/Programming Note Asked by MRI staff to evaluate and program Medtronic MACHINE PAN GREASER-D to allow for MR imaging. Patient Active Problem List Diagnosis ','STEMI (ST elevation myocardial infarction) Acute on chronic heart failure with reduced ejection fraction (HFrEF, <= 40%) Coronary artery disease involving moapa coronary artery of moapa heart without angina pectoris Type 2 diabetes mellitus Device Data: Medec[employer]ia MRI Quad MACHINE PAN GREASER-D [id number] #[id number] 06/16/2019 RA Medtronic 4076 CapSureFix Novus [id number] 06/16/2019 RV Medtronic [id number] 06/16/2019 LV Medtronic 4298 Attain Performa MRI [id number] 06/16/2019 DDD @ 50/130/130 Adaptive Bi-V and LV VF >188bpm ATP, 35j x6 FVT >188-222bpm burst 2, 35jx5 VT Battery longevity: 2.5yrs; charge time 4s P wave: 2.3mV R wave: >20.0mV Atrial impedance: 458 ohms RV impedance: 646 ohms LV impedance: 722 ohms Atrial threshold: 0.5V @ 0.4ms RV threshold: LV threshold: 1.75V @ 0.4ms AP 0.2% PATIENT ADVOCATE 97.7% AT/AF 0% Impression and Plan: 1. Interrogated device to determine suitability for MRI 2. Programmed to MRI safe mode - VOO @ 70 3. Scan performed 4. Programming restored to baseline settings 5. Reinterrogated to verify appropriate function and settings 6. Device follow up as previously scheduled Provider: HENOK Meyer EP Consult attending physician: Libby Barton MD EP Consult positional pager #[phone](EPMD) EP Device interrogation positional pager # [phone] * Dain Colón MD - 06/07/2024 7:09 AM EST Images from the original note were not included. . Cardiology Progress Note Patient info: Name: George Mehta : 1955 PCP: Mauro Berumen MD PCP phone number: [phone] Date of Admission: 06/02/2024 ( Hospital Day 5 days ) Attending:Melida Valdes MD ID: 69 y.o. male with a h/o DM type 2, HTN, HLD, current smoker (2-3 cigarettes/day), HFrEF with anICD for low EF (~30%), and CAD with prior SC x3 with JENNA placed in [place], Melanoma, PAD, presented to [facility] with 1 hour of retrosternal CP (05/13) while watching TV, found to have STEMI. Active Problems: Active Hospital Problems Diagnosis STEMI (ST elevation myocardial infarction) Acute on chronic heart failure with reduced ejection fraction (HFrEF, <= 40%) Coronary artery disease involving moapa coronary artery of moapa heart without angina pectoris Type 2 diabetes [...] in the last 7068 hours. Invalid input(s): [id number] Recent Labs 06/07/24 0425 06/07/24 0008 06/06/24 2018 06/06/24 1539 06/06/24 1339 06/06/24 1134 06/06/24 0757 06/06/24 0653 06/05/24 2231 06/05/24 1622 06/05/24 1134 06/05/24 0727 POCGLU 127 182 143 147 317* 264* 195 187 238* 205* 211* 166 Heme No results for input(s): LDH, HAPTOGLOBIN, URICACID in the last 168 hours. ABG (Arterial Blood Gas) No results found for: PHART, PO2ART, USZ2RWP, NRI7MMJ Microbiology: Microbiology Results (Last 30 days) No results found for the last 720 hours. Imaging: Results for orders placed or performed during the hospital encounter of 06/02/24 XR Chest One View (Exam End: 06/03/2024 2:41 AM) Result Value WORKSTATION ID [id number] Impression No radiographically evident acute cardiopulmonary process. Thank you for letting us participate in the care of this patient. If you are a health care provider and have any questions regarding this report, please contact the number below. For patients who have questions please contact the health care rep that requested your imaging first. Chest wo Contrast (Generic) (Exam End: 06/03/2024 4:33 PM) Result Value WORKSTATION ID [id number] Impression Cardiomegaly. Biventricular ICD leads in place. Thank you for letting us participate in the care of this patient. If you are a health care provider and have any questions regarding this report, please contact the number below. For patients who have questions please contact the health care rep that requested your imaging first. : Limited echo performed by fellow professional sports scout to assess LV function. Left ventricle is [...] ischemic cardiomyopathy with HFrEF (~30% EF), prior SC with stents, DM type 2, HTN, HLD, [...] Dain Colón MD (PGY-1) Cardiology, M1-S2, Pager #[phone] 06/07/24 Associated attestation - Melida Valdes MD [...] a lytic and brought directly to the Ship Purser. Cardiac catheterization demonstrated multivessel disease with severe [...] for further guidance. Melida Valdes MD Staff Mortgage Loan Processing Clerk * Dain Colón MD - 06/06/2024 7:17 AM EST Images from the original note were not included. . Cardiology Progress Note Patient info: Name: George Mehta : 1955 PCP: Mauro Berumen MD PCP phone number: [phone] Date of Admission: 06/02/2024 ( Hospital Day 4 days ) Attending:Melida Valdes MD ID: 69 y.o. male with a h/o DM type 2, HTN, HLD, current smoker (2-3 cigarettes/day), HFrEF with anICD for low EF (~30%), and CAD with prior SC x3 with JENNA placed in [place], Melanoma, PAD, presented to [facility] with 1 hour of retrosternal CP (05/13) while watching TV, found to have STEMI. Active Problems: Active Hospital Problems Diagnosis STEMI (ST elevation myocardial infarction) Acute on chronic heart failure with reduced ejection fraction (HFrEF, <= 40%) Coronary artery disease involving moapa coronary artery of moapa heart without angina pectoris Type 2 diabetes [...] in the last 7068 hours. Invalid input(s): [id number] Recent Labs 06/06/24 0653 06/05/24 2231 06/05/24 1622 06/05/24 1134 06/05/24 0727 06/04/24 1943 06/04/24 1526 06/04/24 1109 06/04/24 0711 06/03/24 2005 06/03/24 1748 06/03/24 1114 POCGLU 187 238* 205* 211* 166 175 154 188 182 136 191 166 Heme No results for input(s): LDH, HAPTOGLOBIN, URICACID in the last 168 hours. ABG (Arterial Blood Gas) No results found for: PHART, PO2ART, GSM9TVT, WZL8IFE Microbiology: Microbiology Results (Last 30 days) No results found for the last 720 hours. Imaging: Results for orders placed or performed during the hospital encounter of 06/02/24 XR Chest One View (Exam End: 06/03/2024 2:41 AM) Result Value WORKSTATION ID [id number] Impression No radiographically evident acute cardiopulmonary process. Thank you for letting us participate in the care of this patient. If you are a health care provider and have any questions regarding this report, please contact the number below. For patients who have questions please contact the health care rep that requested your imaging first. Chest wo Contrast (Generic) (Exam End: 06/03/2024 4:33 PM) Result Value WORKSTATION ID [id number] Impression Cardiomegaly. Biventricular ICD leads in place. Thank you for letting us participate in the care of this patient. If you are a health care provider and have any questions regarding this report, please contact the number below. For patients who have questions please contact the health care rep that requested your imaging first. : Limited echo performed by fellow professional sports scout to assess LV function. Left ventricle is [...] ischemic cardiomyopathy with HFrEF (~30% EF), prior SC with stents, DM type 2, HTN, HLD, [...] Dain Colón MD (PGY-1) Cardiology, M1-S2, Pager #[phone] 06/06/24 Associated attestation - Melida Valdes MD [...] a lytic and brought directly to the Ship Purser. Cardiac catheterization demonstrated multivessel disease with severe [...] management. Help appreciated Melida Valdes MD Staff Mortgage Loan Processing Clerk * Frederick Dunn MD - 06/05/2024 8:13 AM EDT Images from the original note were not included. . Cardiology Progress Note Patient info: Name: George Mehta : 1955 PCP: Mauro Berumen MD PCP phone number: [phone] Date of Admission: 06/02/2024 ( Hospital Day 3 days ) Attending:Melida Valdes MD ID: 69 y.o. male with a h/o DM type 2, HTN, HLD, current smoker (2-3 cigarettes/day), HFrEF with anICD for low EF (~30%), and CAD with prior SC x3 with JENNA placed in [place], Melanoma, PAD, presented to [facility] with 1 hour of retrosternal CP [...] in the last 7068 hours. Invalid input(s): [id number] Recent Labs 06/05/24 1134 06/05/24 0727 06/04/24 1943 06/04/24 1526 06/04/24 1109 06/04/24 0711 06/03/24 2005 06/03/24 1748 06/03/24 1114 06/03/24 0754 06/02/24 2331 POCGLU 211* 166 175 154 188 182 136 191 166 195 156 Heme No results for input(s): LDH, HAPTOGLOBIN, URICACID in the last 168 hours. ABG (Arterial Blood Gas) No results found for: PHART, PO2ART, OEW3BTF, JRI1RKL Microbiology: Microbiology Results (Last 30 days) No results found for the last 720 hours. Imaging: Results for orders placed or performed during the hospital encounter of 06/02/24 XR Chest One View (Exam End: 06/03/2024 2:41 AM) Result Value WORKSTATION ID [id number] Impression No radiographically evident acute cardiopulmonary process. Thank you for letting us participate in the care of this patient. If you are a health care provider and have any questions regarding this report, please contact the number below. For patients who have questions please contact the health care rep that requested your imaging first. Chest wo Contrast (Generic) (Exam End: 06/03/2024 4:33 PM) Result Value WORKSTATION ID [id number] Impression Cardiomegaly. Biventricular ICD leads in place. Thank you for letting us participate in the care of this patient. If you are a health care provider and have any questions regarding this report, please contact the number below. For patients who have questions please contact the health care rep that requested your imaging first. : Limited echo performed by fellow professional sports scout to assess LV function. Left ventricle is [...] ischemic cardiomyopathy with HFrEF (~30% EF), prior SC with stents, DM type 2, HTN, HLD, [...] all the information they need regarding the MACHINE PAN GREASER-D.Plan for MRI tomorrow. Starting 40 mg IV [...] a lytic and brought directly to the Ship Purser. Cardiac catheterization demonstrated multivessel disease with severe [...] maintenance of 40. Melida Valdes MD Staff Mortgage Loan Processing Clerk * Migel Javier RN - 06/05/2024 6:21 AM EDT Implanted device record scanned into: Chart Review-->Media-->External Cardiology-->03/25/2024. Medtronic Obeo Healthia MRI Quad CRTD [id number] Serial #: [id number] DDD mode A + Bi/V Rates 50-130 Migel Javier RN * Dain Colón MD - 06/04/2024 11:16 AM EDT Implant Records Requested Type: MACHINE PAN GREASER-D Log Loader Helper: [employer] Product: [id number] Amplia MRI MRI compatibility: Compatible for 1.5-3 T Model #: [id number] Placed at: [place], [place] Records requested for MRI: 1. Operative report 2. Implant log I requested that these records be sent to our MRI department, Dain Colón MD 06/04/24 11:58 AM * Dain Colón MD - 06/04/2024 6:57 AM EDT Images from the original note were not included. . Cardiology Progress Note Patient info: Name: George Mehta : 1955 PCP: Mauro Berumen MD PCP phone number: [phone] Date of Admission: 06/02/2024 ( Hospital Day 2 days ) Attending:Delroy Fofana MD ID: 69 y.o. male with a h/o DM type 2, HTN, HLD, current smoker (2-3 cigarettes/day), HFrEF with anICD for low EF (~30%), and CAD with prior SC x3 with JENNA placed in [place], Melanoma, PAD, presented to [facility] with 1 hour of retrosternal CP [...] in the last 7068 hours. Invalid input(s): [id number] Recent Labs 06/03/24 2005 06/03/24 1748 06/03/24 1114 06/03/24 0754 06/02/24 2331 POCGLU 136 191 166 195 156 Heme No results for input(s): LDH, HAPTOGLOBIN, URICACID in the last 168 hours. ABG (Arterial Blood Gas) No results found for: PHART, PO2ART, KJU9WOC, XCL5UWO Microbiology: Microbiology Results (Last 30 days) No results found for the last 720 hours. Imaging: Results for orders placed or performed during the hospital encounter of 06/02/24 XR Chest One View (Exam End: 06/03/2024 2:41 AM) Result Value WORKSTATION ID [id number] Impression No radiographically evident acute cardiopulmonary process. Thank you for letting us participate in the care of this patient. If you are a health care provider and have any questions regarding this report, please contact the number below. For patients who have questions please contact the health care rep that requested your imaging first. Chest wo Contrast (Generic) (Exam End: 06/03/2024 4:33 PM) Result Value WORKSTATION ID [id number] Impression Cardiomegaly. Biventricular ICD leads in place. Thank you for letting us participate in the care of this patient. If you are a health care provider and have any questions regarding this report, please contact the number below. For patients who have questions please contact the health care rep that requested your imaging first. : Limited echo performed by fellow professional sports scout to assess LV function. Left ventricle is [...] ischemic cardiomyopathy with HFrEF (~30% EF), prior SC with stents, DM type 2, HTN, HLD, [...] -Lasix 40 mg IV given in the radiographer cardiac catheterization; assess diuretic response, consider re-dosing -Continue carvedilol; [...] a lytic and brought directly to the Ship Purser. Cardiac catheterization demonstrated multivessel disease with severe [...] Friday -Diuresis with Jovanni Valdes MD Staff Mortgage Loan Processing Clerk * Fatmata Mcallister PT - 06/03/2024 3:29 [...] vs PCI) Fatmata Mcallister PT, MSPT Pager [phone] Inpatient Physical Therapy * Marlin Gómez MD [...] Marlin Gómez MD Cardiology S2, Pager # [phone] 06/03/2024 * Delroy Fofana MD - 06/03/2024 7:16 AM EDT Images from the original note were not included. . Cardiology Progress Note Patient info: Name: George Mehta : 1955 PCP: Mauro Berumen MD PCP phone number: [phone] Date of Admission: 06/02/2024 ( Hospital Day 1 day ) Attending:Nuha Rojo MD ID: 69 y.o. male with a h/o DM type 2, HTN, HLD, current smoker (2-3 cigarettes/day), HFrEF with anICD for low EF (~30%), and CAD with prior SC x3 with JENNA placed in [place], Melanoma, PAD, presented to [facility] with 1 hour of retrosternal CP [...] in the last 7068 hours. Invalid input(s): [id number] Recent Labs 06/02/24 2331 POCGLU 156 Heme No results for input(s): LDH, HAPTOGLOBIN, URICACID in the last 168 hours. ABG (Arterial Blood Gas) No results found for: PHART, PO2ART, TAB7EIY, LUW8FKV Microbiology: Microbiology Results (Last 30 days) No results found for the last 720 hours. Imaging: Results for orders placed or performed during the hospital encounter of 06/02/24 XR Chest One View (Exam End: 06/03/2024 2:41 AM) Result Value WORKSTATION ID [id number] Impression No radiographically evident acute cardiopulmonary process. Thank you for letting us participate in the care of this patient. If you are a health care provider and have any questions regarding this report, please contact the number below. For patients who have questions please contact the health care rep that requested your imaging first. : Limited echo performed by fellow professional sports scout to assess LV function. Left ventricle is [...] ischemic cardiomyopathy with HFrEF (~30% EF), prior SC with stents, DM type 2, HTN, HLD, [...] -Lasix 40 mg IV given in the radiographer cardiac catheterization; assess diuretic response, consider re-dosing -Continue carvedilol; [...] of care per Dain Colón MD (medical center manager). Please refer to his note above for details. Very pleasant 69 year old male but he is obese, diabetic, and he is a SMOKER with known prior CAD and moderately reduced LVEF (30%). He has a pacer. History of surgical resection of melanoma on his head. The patient was transferred overnight to [facility] as a STEM[place]. He was treated initially with a lytic (TNK) and brought directly to the radiographer cardiac catheterization. The cath demonstrated 3VD with diffuse disease [...] - 06/13/2024 10:58 AM EST ICU Blue (#[id number]) H&P Patient info: Name: George Mehta : 1955 PCP: Mauro Berumen MD PCP phone number: [phone] Date of Admission: 06/02/2024 ( Hospital Day 11 days ) Attending:Haja Byrnes MD ID: George Mehta is a 69 y.o. male with a h/o DM type 2, HTN, HLD, current smoker (2-3 cigarettes/day), HFrEF with an ICD for low EF (~30%), and CAD with prior SC x3 with JENNA placed in [place], [facility], presented to [facility] with 1 hour of retrosternal CP (05/13) while watching TV, foundto have STEMI. HPI: Shahnaz Scanlon H&P 06/02 69 y.o. male with a h/o DM type 2, HTN, HLD, current smoker (2-3 cigarettes/day), HFrEF with an ICD for low EF (~30%), and CAD with prior SC x3 with JENNA placed in [place], [facility], PAD, presented to [facility] with 1 hour of retrosternal CP (05/13) while watching TV. CP was non-radiating, not asso ciated with diaphoresis, nausea, or SOB. Denies orthopnea, MARTÍNEZ, palpitations, or LE edema. ECG showed findings consistent with anterior STEMI. He received TNK and was transferred for PCI. Coronary angiography showed a small, non-dominant RCA with fovk-ol-wvwbddio disease and a dominant,heavily calcified left system with prior stents in the LAD and OM. The LM bifurcates into the LAD and LCX, both heavily calcified. The proximal LCX has a 75% calcified, aneurysmal lesion, and an 80% calcified lesion distally before a large OM2. OM1 is a RIVER RAT with in-stent restenosis, filling retrograde via collaterals. [...] 40 mg Lasix was administered in the radiographer cardiac catheterization. Cardiac surgery was consulted and plan for [...] Blood Gas) No results for input(s): PHART, DSN9NWF, PO2ART, JJQ9SCB, LACTATEVEN, HIP0LCW, PFRATIOART2 in the last 168 hours. VBG (Venous Blood Gas) Recent Labs 06/10/24 1742 PHVEN 7.34 PO2VEN 24 XIS1DBW 27.4 Mixed Venous Sat No results for input(s): M1BQWL7 in the last 168 hours. Intake/Output Summary [...] in the last 7068 hours. Invalid input(s): KCKGLSWPBPN8N Recent Labs 06/13/24 0741 06/13/24 0325 06/12/24 2353 06/12/24 1932 06/12/24 1541 06/12/24 1121 06/12/24 0800 06/12/24 0425 06/11/24 2356 06/11/24 2025 06/11/24 1624 06/11/24 1108 POCGLU 126 99 141 158 113 207* 169 132 135 210* 81 233* Heme No results for input(s): LDH, HAPTOGLOBIN, URICACID in the last 168 hours. ABG (Arterial Blood Gas) No results for input(s): PHART, WRU8TER, PO2ART, FEB4HRY, LACTATEVEN, FYR4NUE, PFRATIOART2 in the last 168 hours. VBG (Venous Blood Gas) Recent Labs 06/10/24 1742 PHVEN 7.34 PO2VEN 24 KTJ0HCW 27.4 Mixed Venous Sat No results for input(s): F5DGLM2 in the last 168 hours. Microbiology: Microbiology Results (Last 30 days) No results found for the last 720 hours. Assessment & Plan: George Mehta is a 69 y.o. male with CAD, ischemic cardiomyopathy with HFrEF (~30% EF), prior SC with stents, DM type 2, HTN, HLD, [...] Plan for CABG 06/14. Patient NPO at [place]. #ASCVD / STEMI: -Holding Plavix; continue ASA [...] (Give Meds) Daily Healthy Menu Choices/Cardiac diet ([facility]-Diet) DVT Prophylaxis: SCD GI [...] TUD (abstinent since admission), ASCVD with multipleprior SC and PCIs, ICM/HFrEF LVEF 30% (all territories [...] is in the chart Rebeca Prado MD Dramatic Coach PGY6 [id number] * Shahnaz Scanlon MD - [...] low EF (~30%), and CAD with prior SC x3 with JENNA placed in [place], [facility], PAD, presented to [facility] with 1 hour of retrosternal CP (05/13) while watching TV. CP was non-radiating, not assoc iated with diaphoresis, nausea, or SOB. Denies orthopnea, MARTÍNEZ, palpitations, or LE edema. ECG showed findings consistent with anterior STEMI. He received TNK and was transferred for PCI. Coronary angiography showed a small, non-dominant RCA with tjzl-nc-jryjowot disease and a dominant,heavily calcified left system with prior stents in the LAD and OM. The LM bifurcates into the LAD and LCX, both heavily calcified. The proximal LCX has a 75% calcified, aneurysmal lesion, and an 80% calcified lesion distally before a large OM2. OM1 is a RIVER RAT with in-stent restenosis, filling retrograde via collaterals. [...] 40 mg Lasix was administered in the radiographer cardiac catheterization. Past Medical History: As per HPI Significant [...] Affect: Mood normal. Behavior: Behavior normal. Diagnostics: [facility] 06/02/2024 Coronary angiography revealed small non dominant [...] ischemic cardiomyopathy with HFrEF (~30% EF), prior SC with stents, DM type 2, HTN, HLD, [...] -Lasix 40 mg IV given in the radiographer cardiac catheterization; assess diuretic response. -Continue carvedilol; hold Entresto [...] & Follow-up Care: Contact information for follow-up [facility] [address] [facility] [address] Cardiac Rehab, [address] [facility] [address] JAMIE GRAMAJO confirmed with [facility] that they [...] Roberts RN - 06/18/2024 10:50 AM EST [facility]ARDI[facility] REHABILITATION George Mehta was seen today regarding participation in the outpatient Phase 2 Cardiac Rehabilitation at [facility]. The patient agrees to a referral [...] Agency/Support Group Needs: Homecare agency Agency Choices: [facility] Home Health Services: Medication checks, Registered Nurse, Physical Therapy Agency Referrals: pending clinical course and PT/OT recs [facility] [address] [facility] [address] PHONE: [phone] FAX: [phone] Transportation: family or friend will provide Barriers [...] recs Patient is insured through: Primary Insurance: [facility] [employer] MEDICARE Payor: [facility] MANAGED MEDICARE / Plan: [employer] [place] MANAGED MEDICARE COMPLETE / Product Type: *No Product type* / Secondary Insurance: N/A Plan for discharge is: Home w/ Services Outpatient Agency/Support Group Needs: Homecare agency Agency Choices: [facility]: Medication checks, Registered Nurse, Physical Therapy Agency Referrals: pending clinical course and PT/OT recs [facility] [address] [place] [address] PHONE: [phone] FAX: [phone] Transportation: family or friend will provide Barriers [...] Loja MD - 06/14/2024 8:48 AM EST [facility] Operative Note Patient Name: George Mehta : [id number] MR#: [id number] Case Date: 06/14/2024 Surgeon: Surgeons and Role: * Bobby Loja MD - Primary * Rashi Bass PA - Physician Chocolate Finisher Operator Preoperative diagnosis: CAD, MARIALUISA flickering mass [...] procedures today and tomorrow. Report called to [facility] - all belongings with patient. PLAN MOVING FORWARD: director of cardiac cath lab and transfer to [facility]. INDIVIDUALIZED FALL PREVENTION [...] No Patient is insured through: Primary Insurance: [facility] MANAGED MEDICARE Payor: [facility] MANAGED MEDICARE / Plan: [employer] [place] MANAGED MEDICARE COMPLETE / Product Type: *No Product type* / Secondary Insurance: N/A Plan for discharge is: Home w/ Services Outpatient Agency/Support Group Needs: Homecare agency, Agency Choices: [facility] Home Health Services: Medication checks, Registered Nurse, Physical Therapy Agency Referrals: [facility] [address] [place] [address] RN / PT Routed 06/10 Transportation: family [...] with home health services when medically ready. electric engine mechanic/Account Technician will continue to follow patient???s progress and remain available if situation changes for coordination of care, psychosocial support and/or discharge planning. Anticipated Date of Discharge: 06/18/2024 Mariia Montero RN Extension [phone] * Plan of Care - Migel Javier [...] no response. I reached out to Rashi aBss PA-C regarding the concern. Rashi mentioned that [...] No Patient is insured through: Primary Insurance: [employer] MANAGED MEDICARE Payor: [employer] MANAGED MEDICARE / Plan: [employer] [place] [employer] MEDICARE COMPLETE / Product Type: *No Product [...] consult for high risk PCI vs CABG electric engine mechanic/Account Technician will continue to follow patient???s progress and remain available if situation changes for coordination of care, psychosocial support and/or discharge planning. Anticipated Date of Discharge: 06/11/2024 Mariia Montero RN Extension [phone] * Plan of Care - Becca Hope [...] ischemic cardiomyopathy with HFrEF (~30% EF), prior SC with stents, DM type 2, HTN, HLD, [...] CABG and to provide a review of [facility] diabetes care. Diabetes History: George Mehta has [...] Breakfast- varies - eggs with khoury or guinean muffin Lunch- turkey sandwich Supper- meat and [...] Infusions: heparin (porcine) infusion 1,400 Units/hr (06/06/24 8231) PRN: insulin lispro, potassium chloride ER OR [...] ischemic cardiomyopathy with HFrEF (~30% EF), prior SC with stents, DM type 2, HTN, HLD, [...] Baumann APRN Endocrinology Diabetes Management Service Pager: [phone] Weekends please page [phone] 80 minute visit was spent in counseling [...] y.o. male with a PMHx of previous SC s/p PCI x3, ICM/HFrEF (LVEF 30%) s/p ICD, DMII, HTN, HLD, remote melanoma, and smoker who presented to [facility] last night via EMS after developing acute, severe chest pain while watching TV. Patient was ruled in for STEMI, given TNK, ASA, plavix, heparin gtt, and sent to [facility] for coronary angiography. LHC demonstrated severely calcified left coronary system with notable LCx 75/80% lesions and RIVER RAT OM1 with ISR with collateral retrograde filling, [...] elevation myocardial infarction) Past Medical History: previous SC s/p PCI x3 ICM/HFrEF (LVEF 30%) s/p [...] is large. OM1 appears to be a RIVER RAT, with in stentrestenosis and fills retrograde via [...] y.o. male admitted with STEMI s/p TNK, [facility] showing multivessel CAD including ISR, no culprit [...] Team, bedside nurse, medical record, and Patient PLAYGROUND AIDE Introduced self/reviewed role; services accepted. Admitted From: Transfer from another hospital Location: [facility] Reason for Hospitalization: Chest Pain while [...] care in [place] must abide by [place] law. The hierarchy [...] (i) The agent with financial power of orthodontist small business owner or a conservator appointed in accordance with [...] has the electric, gas, oil, or water [employer] threatened to shut off services in your [...] in the bathroom) Home Address confirmed as: [address] [place] [address] [address] [facility] [address] Social & Family Supports: All names listed [...] Pertinent/Service Specific Information: Health/Prescription Coverage: Primary Insurance: [facility] MEDICARE Payor: [facility] MEDICARE / Plan: [employer] MANAGED MEDICARE COMPLETE / Product Type: *No Product type* / Secondary Insurance: N/A ; Prescription Coverage: Yes Preferred Pharmacy: [id number] - [facility], [place] - [address] [facility] [address] [place] [id number] [place] Status: Patient is a : No Primary Care Provider confirmed: Mauro Berumen MD [phone] Patient/Caregiver Goals of Treatment: Potential Needs for [...] care as indicated. [facility], [phone]. [phone] * Brief Op Note - Angeles Gaxiola PA - 06/03/2024 12:23 AM EDT Preliminary Cardiac Catheterization Procedure Note: Patient Name: George Mehta : [id number] MR#: [id number] Case Date: 06/02/2024 - 06/03/2024 Technical Intern: Surgeons and Role: * Nuha Shen MD - Primary * Angeles Gaxiola PA - Physician Chocolate Finisher Operator Preoperative diagnosis: STEMI Postoperative diagnosis: * STEMI * Procedure(s) performed: RRA access [facility] Coronary angiogram IVUS LM/LAD/LCX Access: 6 Fr RRA A time-out was conducted prior to the start of the procedure to verify the correct patient and procedure, procedure location, and all relevant critical information. Preliminary findings: 69 year old current smoker (1-2 cigarette's per day), DM type 2, hypertension, dyslipidemia, ICD for HFrEF/low EF (~30%), CAD with prior SC and 3 stents historically (in [place]) who presented to [facility] with 1 hour of rest chest [...] is large. OM1 appears to be a RIVER RAT, with in stentrestenosis and fills retrograde via [...] receive 40 mg of lasix in the radiographer cardiac catheterization. Recommendations: surgical consult for possible open revascularization; [...] PM EST Office Visit Cardiology at [address] [phone] Moi Falcon MD [facility] [place] [address] Scheduled Orders Name Type Priority Associated Diagnoses [...] 7:20 AM EST Coronary artery disease involving moapa coronary artery of moapa heart without angina pectoris POC, GLUCOSE Routine [...] * POC, GLUCOSE (06/21/2024 3:51 AM EST) [facility] Signature Glucometer, POC 142 65 - 199 mg/dL 06/21/2024 3:[address] [facility] Comment:Supplemental ranges: <140 mg/dL before meals <180 mg/dL all other times of the day. Blood CAPILLARY BLOOD / Unknown 06/21/2024 3:51 AM EST 06/21/2024 3:51 AM EST Bobby Loja MD POINT OF CARE TEST O NIKA [facility] [place] [address] * (ABNORMAL) Basic Metabolic Panel (06/21/2024 2:09 [...] APRN CHEMISTRY ORDERABL ES Performing Organization Address City/[facility]/ZIP Co de Phone Number [facility] [place] [address] * POC, GLUCOSE (06/21/2024 12:04 AM EST) Glucometer, POC 157 65 - 199 mg/dL 06/21/2024 12:[address] [facility] Comment:Supplemental ranges: <140 mg/dL before meals <180 mg/dL all other times of the day. Blood CAPILLARY BLOOD / Unknown 06/21/2024 12:04 AM EST 06/21/2024 12:04 AM EST Bobby Loja MD POINT OF CARE TEST O NIKA Performing Organization Address [facility] Co de Phone Number [facility] [place] [place] [address] * POC, GLUCOSE (06/20/2024 11:14 PM EST) Glucometer, POC 67 65 - 199 mg/dL 06/20/2024 11:[address] [facility] Comment:Supplemental ranges: <140 mg/dL before meals <180 mg/dL all other times of the day. Blood CAPILLARY BLOOD / Unknown 06/20/2024 11:14 PM EST 06/20/2024 11:14 PM EST Bobby Loja MD POINT OF CARE TEST O NIKA Performing Organization Address City/[facility]/ZIP Co de Phone Number [facility] [place] [address] * POC, GLUCOSE (06/20/2024 7:16 PM EST) Glucometer, POC 132 65 - 199 mg/dL 06/20/2024 7:[address] [facility] Comment:Supplemental ranges: <140 mg/dL before meals <180 mg/dL all other times of the day. Blood CAPILLARY BLOOD / Unknown 06/20/2024 7:16 PM EST 06/20/2024 7:16 PM EST Bobby Loja MD POINT OF CARE TEST O NIKA [facility] [place] [address] * POC, GLUCOSE (06/20/2024 3:39 PM EST) Glucometer, POC 124 65 - 199 mg/dL 06/20/2024 3:[address] [facility] Comment:Supplemental ranges: <140 mg/dL before meals <180 mg/dL all other times of the day. Blood CAPILLARY BLOOD / Unknown 06/20/2024 3:39 PM EST 06/20/2024 3:40 PM EST Bobby Loja MD POINT OF CARE TEST O NIKA Performing Organization Address City/[facility]/ZIP Co de Phone Number [facility] [place] [address] * POC, GLUCOSE (06/20/2024 12:02 PM EST) Glucometer, POC 173 65 - 199 mg/dL 06/20/2024 12:[address] [facility] Comment:Supplemental ranges: <140 mg/dL before meals <180 mg/dL all other times of the day. Blood CAPILLARY BLOOD / Unknown 06/20/2024 12:02 PM EST 06/20/2024 12:03 PM EST Bobby Loja MD POINT OF CARE TEST O NIKA [facility] [place] [address] * POC, GLUCOSE (06/20/2024 7:10 AM EST) Glucometer, POC 130 65 - 199 mg/dL 06/20/2024 7:[address] [facility] Comment:Supplemental ranges: <140 mg/dL before meals <180 mg/dL all other times of the day. Blood CAPILLARY BLOOD / Unknown 06/20/2024 7:10 AM EST 06/20/2024 7:11 AM EST Bobby Loja MD POINT OF CARE TEST O RDERABLES [facility] [place] [address] * (ABNORMAL) Basic Metabolic Panel (06/20/2024 2:28 [...] APRN CHEMISTRY ORDERABL ES Performing Organization Address City/[facility]/ZIP Co de Phone Number [facility] [place] [address] * POC, GLUCOSE (06/20/2024 12:32 AM EST) Glucometer, POC 86 65 - 199 mg/dL 06/20/2024 12:[address] [facility] Comment:Supplemental ranges: <140 mg/dL before meals <180 mg/dL all other times of the day. Blood CAPILLARY BLOOD / Unknown 06/20/2024 12:32 AM EST 06/20/2024 12:32 AM EST Bobby Loja MD POINT OF CARE TEST O RDERABLES [facility] [place] [address] * (ABNORMAL) POC, GLUCOSE (06/20/2024 12:02 AM [...] CARE TEST O NIKA Performing Organization Address City/[facility] Co de Phone Number [facility] [place] [address] * POC, GLUCOSE (06/19/2024 8:15 PM EST) Glucometer, POC 131 65 - 199 mg/dL 06/19/2024 8:[address] [facility] Comment:Supplemental ranges: <140 mg/dL before meals <180 mg/dL all other times of the day. Blood CAPILLARY BLOOD / Unknown 06/19/2024 8:15 PM EST 06/19/2024 8:15 PM EST Bobby Loja MD POINT OF CARE TEST Abimael MAHER Performing Organization Address [facility] Co de Phone Number [facility] [place] [address] * POC, GLUCOSE (06/19/2024 6:01 PM EST) [...] CARE TEST O NIKA Performing Organization Address City/[facility] Co de Phone Number [facility] [place] [address] * POC, GLUCOSE (06/19/2024 4:51 PM EST) Glucometer, POC 155 65 - 199 mg/dL 06/19/2024 4:[address] [facility] Comment:Supplemental ranges: <140 mg/dL before meals <180 mg/dL all other times of the day. Blood CAPILLARY BLOOD / Unknown 06/19/2024 4:51 PM EST 06/19/2024 4:51 PM EST Bobby Loja MD POINT OF CARE TEST O NIKA Performing Organization Address City/[facility]/ZIP Co de Phone Number [facility] [place] [address] * POC, GLUCOSE (06/19/2024 12:37 PM EST) Glucometer, POC 136 65 - 199 mg/dL 06/19/2024 12:[address] [facility] Comment:Supplemental ranges: <140 mg/dL before meals <180 mg/dL all other times of the day. Blood CAPILLARY BLOOD / Unknown 06/19/2024 12:37 PM EST 06/19/2024 12:37 PM EST Bobby Loja MD POINT OF CARE TEST O NIKA Performing Organization Address City/[facility]/ZIP Co de Phone Number [facility] [place] [address] * POC, GLUCOSE (06/19/2024 11:20 AM EST) Glucometer, POC 185 65 - 199 mg/dL 06/19/2024 11:[address] [facility] Comment:Supplemental ranges: <140 mg/dL before meals <180 mg/dL all other times of the day. Blood CAPILLARY BLOOD / Unknown 06/19/2024 11:20 AM EST 06/19/2024 11:21 AM EST Bobby Loja MD POINT OF CARE TEST O NIKA [facility] [place] [address] * POC, GLUCOSE (06/19/2024 7:21 AM EST) Glucometer, POC 125 65 - 199 mg/dL 06/19/2024 7:[address] [facility] Comment:Supplemental ranges: <140 mg/dL before meals <180 mg/dL all other times of the day. Blood CAPILLARY BLOOD / Unknown 06/19/2024 7:21 AM EST 06/19/2024 7:22 AM EST Bobby Loja MD POINT OF CARE TEST O NIKA [facility] [place] [address] * POC, GLUCOSE (06/19/2024 4:52 AM EST) Glucometer, POC 125 65 - 199 mg/dL 06/19/2024 4:[address] [facility] Comment:Supplemental ranges: <140 mg/dL before meals <180 mg/dL all other times of the day. Blood CAPILLARY BLOOD / Unknown 06/19/2024 4:52 AM EST 06/19/2024 4:52 AM EST Bobby Loja MD POINT OF CARE TEST O NIKA Performing Organization Address [facility]/ZIP Co de Phone Number [facility] [place] [address] * POC, GLUCOSE (06/19/2024 4:13 AM EST) Glucometer, POC 67 65 - 199 mg/dL 06/19/2024 4:[address] [facility] Comment:Supplemental ranges: <140 mg/dL before meals <180 mg/dL all other times of the day. Blood CAPILLARY BLOOD / Unknown 06/19/2024 4:13 AM EST 06/19/2024 4:13 AM EST Bobby Loja MD POINT OF CARE TEST O NIKA [facility] [place] [address] * (ABNORMAL) POC, GLUCOSE (06/19/2024 3:48 AM EST) Glucometer, POC 51(LLL) 65 - 199 mg/dL 06/19/2024 3:[address] [facility] Comment:Supplemental ranges: <140 mg/dL before meals <180 mg/dL all other times of the day. Blood CAPILLARY BLOOD / Unknown 06/19/2024 3:48 AM EST 06/19/2024 3:48 AM EST Bobby Loja MD POINT OF CARE TEST O RDERABLES [facility] [place] [address] * (ABNORMAL) Basic Metabolic Panel (06/19/2024 3:44 [...] APRN CHEMISTRY ORDERABL ES Performing Organization Address City/[facility]/ZIP Co de Phone Number [facility] [place] [address] * POC, GLUCOSE (06/19/2024 12:23 AM EST) Glucometer, POC 82 65 - 199 mg/dL 06/19/2024 12:[address] [facility] Comment:Supplemental ranges: <140 mg/dL before meals <180 mg/dL all other times of the day. Blood CAPILLARY BLOOD / Unknown 06/19/2024 12:23 AM EST 06/19/2024 12:23 AM EST Bobby oLja MD POINT OF CARE TEST O RDERABLES [facility] [place] [address] * POC, GLUCOSE (06/18/2024 11:08 PM EST) Glucometer, POC 73 65 - 199 mg/dL 06/18/2024 11:[address] [facility] Comment:Supplemental ranges: <140 mg/dL before meals <180 mg/dL all other times of the day. Blood CAPILLARY BLOOD / Unknown 06/18/2024 11:08 PM EST 06/18/2024 11:08 PM EST Bobby Loja MD POINT OF CARE TEST O NIKA [facility] [place] [address] * POC, GLUCOSE (06/18/2024 7:32 PM EST) Glucometer, POC 167 65 - 199 mg/dL 06/18/2024 7:[address] [facility] Comment:Supplemental ranges: <140 mg/dL before meals <180 mg/dL all other times of the day. Blood CAPILLARY BLOOD / Unknown 06/18/2024 7:32 PM EST 06/18/2024 7:32 PM EST Bobby Loja MD POINT OF CARE TEST O NIKA Performing Organization Address City/[facility]/ZIP Co de Phone Number [facility] [place] [address] * POC, GLUCOSE (06/18/2024 6:08 PM EST) Glucometer, POC 140 65 - 199 mg/dL 06/18/2024 6:[address] [facility] Comment:Supplemental ranges: <140 mg/dL before meals <180 mg/dL all other times of the day. Blood CAPILLARY BLOOD / Unknown 06/18/2024 6:08 PM EST 06/18/2024 6:09 PM EST Bobby Loja MD POINT OF CARE TEST O NIKA [facility] [place] [address] * POC, GLUCOSE (06/18/2024 4:17 PM EST) Glucometer, POC 144 65 - 199 mg/dL 06/18/2024 4:[address] [facility] Comment:Supplemental ranges: <140 mg/dL before meals <180 mg/dL all other times of the day. Blood CAPILLARY BLOOD / Unknown 06/18/2024 4:17 PM EST 06/18/2024 4:17 PM EST Bobby Loja MD POINT OF CARE TEST O NIKA [facility] [place] [address] * POC, GLUCOSE (06/18/2024 12:09 PM EST) Glucometer, POC 180 65 - 199 mg/dL 06/18/2024 12:[address] [facility] Comment:Supplemental ranges: <140 mg/dL before meals <180 mg/dL all other times of the day. Blood CAPILLARY BLOOD / Unknown 06/18/2024 12:09 PM EST 06/18/2024 12:09 PM EST Bobby Loja MD POINT OF CARE TEST O NIKA Performing Organization Address City/[facility]/ZIP Co de Phone Number [facility] [place] [address] * POC, GLUCOSE (06/18/2024 7:49 AM EST) Glucometer, POC 125 65 - 199 mg/dL 06/18/2024 7:[address] [facility] Comment:Supplemental ranges: <140 mg/dL before meals <180 mg/dL all other times of the day. Blood CAPILLARY BLOOD / Unknown 06/18/2024 7:49 AM EST 06/18/2024 7:50 AM EST Bobby Loja MD POINT OF CARE TEST O NIKA [facility] [place] [address] * (ABNORMAL) Basic Metabolic Panel (06/18/2024 4:19 [...] APRN CHEMISTRY ORDERABL ES Performing Organization Address [facility]/ZIP Co de Phone Number [facility] [place] [address] * POC, GLUCOSE (06/18/2024 3:50 AM EST) Glucometer, POC 99 65 - 199 mg/dL 06/18/2024 3:[address] [facility] Comment:Supplemental ranges: <140 mg/dL before meals <180 mg/dL all other times of the day. Blood CAPILLARY BLOOD / Unknown 06/18/2024 3:50 AM EST 06/18/2024 3:51 AM EST Bobby Loja MD POINT OF CARE TEST O NIKA Performing Organization Address [facility] Co de Phone Number [facility] [place] [address] * POC, GLUCOSE (06/17/2024 11:10 PM EST) Glucometer, POC 92 65 - 199 mg/dL 06/17/2024 11:[address] [facility] Comment:Supplemental ranges: <140 mg/dL before meals <180 mg/dL all other times of the day. Blood CAPILLARY BLOOD / Unknown 06/17/2024 11:10 PM EST 06/17/2024 11:10 PM EST Bobby Loja MD POINT OF CARE TEST O NIKA Performing Organization Address City/[facility]/ZIP Co de Phone Number [facility] [place] [address] * POC, GLUCOSE (06/17/2024 7:54 PM EST) Glucometer, POC 126 65 - 199 mg/dL 06/17/2024 7:[address] [facility] Comment:Supplemental ranges: <140 mg/dL before meals <180 mg/dL all other times of the day. Blood CAPILLARY BLOOD / Unknown 06/17/2024 7:54 PM EST 06/17/2024 7:54 PM EST Bobby Loja MD POINT OF CARE TEST O NIKA Performing Organization Address [facility] Co de Phone Number [facility] [place] [address] * POC, GLUCOSE (06/17/2024 4:07 PM EST) Glucometer, POC 141 65 - 199 mg/dL 06/17/2024 4:[address] [facility] Comment:Supplemental ranges: <140 mg/dL before meals <180 mg/dL all other times of the day. Blood CAPILLARY BLOOD / Unknown 06/17/2024 4:07 PM EST 06/17/2024 4:12 PM EST Bobby Loja MD POINT OF CARE TEST O NIKA Performing Organization Address [facility] de Phone Number [facility] [place] [address] * XR Chest PA & Lateral (Generic) (06/17/2024 1:46 PM EST) WORKSTATION ID [id number] RAD Anatomical Region Laterality Modality Chest N/A [...] have questions please contact the health care rep that requested your imaging first. ? Electronically signed by: Josselyn Spence MD, [facility] ([phone]), at 06/17/2024 4:49 PM Narrative 06/17/2024 4:49 [...] who have questions please contactthe health care rep that requested your imaging first. Electronically signed by: Josselyn Spence MD, [facility]([phone]), at 06/17/2024 4:49 PM Keila Hanley APRN [...] CARE TEST O RDERAPIETER Performing Organization Address [facility] Co de Phone Number [facility] [place] [address] * POC, GLUCOSE (06/17/2024 7:49 AM EST) Glucometer, POC 141 65 - 199 mg/dL 06/17/2024 7:[address] [facility] Comment:Supplemental ranges: <140 mg/dL before meals <180 mg/dL all other times of the day. Blood CAPILLARY BLOOD / Unknown 06/17/2024 7:49 AM EST 06/17/2024 7:55 AM EST Bobby Loja MD POINT OF CARE TEST O NIKA Performing Organization Address [facility] Co de Phone Number [facility] [place] [address] * POC, GLUCOSE (06/17/2024 4:16 AM EST) Glucometer, POC 139 65 - 199 mg/dL 06/17/2024 4:[address] [facility] Comment:Supplemental ranges: <140 mg/dL before meals <180 mg/dL all other times of the day. Blood CAPILLARY BLOOD / Unknown 06/17/2024 4:16 AM EST 06/17/2024 4:17 AM EST Bobby Loja MD POINT OF CARE TEST O NIKA [facility] [place] [address] * Lactate, Whole Blood (06/17/2024 2:39 AM EST) [facility] Lactate, Whole Blood 1.3 0.5 - 2.2 mmol/L 06/17/2024 2:[address] [facility] Blood VENOUS BLOOD SPECIMEN / Unknown Venipuncture / Unknown 06/17/2024 2:39 AM EST 06/17/2024 2:43 AM EST Bobby Loja MD CHEMISTRY ORDERABLES Performing Organization Address City/[facility]/ZIP Co de Phone Number [facility] [place] [address] * (ABNORMAL) Hemogram (06/17/2024 2:39 AM EST) [facility] White Blood Cell 13.53(H) 4.00 - 9.50 [...] 357 x10(3)/mc L 06/17/2024 2:[address] [facility] Mean Platelet Volume 10.4 7.6 [...] HEMATOLOGY ORDERABLE S [facility] [place] [address] * (ABNORMAL) Basic Metabolic Panel (06/17/2024 2:39 [...] - 31 mMol/L 06/17/2024 3:[address] [facility] Anion [...] MD CHEMISTRY ORDERABLES [facility] [place] [address] * (ABNORMAL) POC, GLUCOSE (06/17/2024 12:13 AM EST) [facility] Signature Glucometer, POC 211(H) 65 - 199 mg/dL 06/17/2024 12:[address] [facility] Comment:Supplemental ranges: <140 mg/dL before meals <180 mg/dL all other times of the day. Blood CAPILLARY BLOOD / Unknown 06/17/2024 12:13 AM EST 06/17/2024 12:14 AM EST Bobby Loja MD POINT OF CARE TEST O NIKA Performing Organization Address [facility] Co de Phone Number [facility] [place] [address] * (ABNORMAL) POC, GLUCOSE (06/16/2024 7:22 PM EST) Glucometer, POC 229(H) 65 - 199 mg/dL 06/16/2024 7:[address] [facility] Comment:Supplemental ranges: <140 mg/dL before meals <180 mg/dL all other times of the day. Blood CAPILLARY BLOOD / Unknown 06/16/2024 7:22 PM EST 06/16/2024 7:22 PM EST Bobby Loja MD POINT OF CARE TEST O NIKA Performing Organization Address [facility] de Phone Number [facility] [place] [address] * (ABNORMAL) POC, GLUCOSE (06/16/2024 6:14 PM EST) Glucometer, POC 220(H) 65 - 199 mg/dL 06/16/2024 6:[address] [facility] Comment:Supplemental ranges: <140 mg/dL before meals <180 mg/dL all other times of the day. Blood CAPILLARY BLOOD / Unknown 06/16/2024 6:14 PM EST 06/16/2024 6:14 PM EST Bobby Loja MD POINT OF CARE TEST O NIKA Performing Organization Address [facility] Co de Phone Number [facility] [place] [address] * Lactate, Whole Blood (06/16/2024 6:14 PM EST) Lactate, Whole Blood 1.8 0.5 - 2.2 mmol/L 06/16/2024 6:[address] [facility] Blood VENOUS BLOOD SPECIMEN / Unknown Venipuncture / Unknown 06/16/2024 6:14 PM EST 06/16/2024 6:25 PM EST Bobby Loja MD CHEMISTRY ORDERABLES Performing Organization Address [facility] Co de Phone Number [facility] [place] [address] * (ABNORMAL) POC, GLUCOSE (06/16/2024 4:14 PM EST) Glucometer, POC 240(H) 65 - 199 mg/dL 06/16/2024 4:[address] [facility] Comment:Supplemental ranges: <140 mg/dL before meals <180 mg/dL all other times of the day. Blood CAPILLARY BLOOD / Unknown 06/16/2024 4:14 PM EST 06/16/2024 4:14 PM EST Bobby Loja MD POINT OF CARE TEST O RDERABLES Performing Organization Address [facility] Co de Phone Number [facility] [place] [address] * POC, GLUCOSE (06/16/2024 11:49 AM EST) Glucometer, POC 199 65 - 199 mg/dL 06/16/2024 11:[address] [facility] Comment:Supplemental ranges: <140 mg/dL before meals <180 mg/dL all other times of the day. Blood CAPILLARY BLOOD / Unknown 06/16/2024 11:49 AM EST 06/16/2024 11:49 AM EST Bobby Loja MD POINT OF CARE TEST O NIKA Performing Organization Address [facility] Co de Phone Number [facility] [place] [address] * (ABNORMAL) Hemogram (06/16/2024 11:44 AM EST) [...] HEMATOLOGY ORDERABLE S [facility] [place] [address] * Lactate, Whole Blood (06/16/2024 9:02 AM EST) Lactate, Whole Blood 1.8 0.5 - 2.2 mmol/L 06/16/2024 9:[address] [facility] Blood VENOUS BLOOD SPECIMEN / Unknown Venipuncture / Unknown 06/16/2024 9:02 AM EST 06/16/2024 9:17 AM EST Narrative Authorizing Provider Result Saranya Loja MD CHEMISTRY ORDERABLES Performing Organization Address [facility] Co de Phone Number [facility] [place] [address] * POC, GLUCOSE (06/16/2024 7:44 AM EST) [...] CARE TEST O RDERABLES Performing Organization Address [facility] Co de Phone Number [facility] [place] [address] * POC, GLUCOSE (06/16/2024 4:01 AM EST) [...] TEST O RDERABLES [facility] [place] [address] * (ABNORMAL) Basic Metabolic Panel (06/16/2024 2:23 [...] Loja MD CHEMISTRY ORDERABLES Performing Organization Address City/[facility]/ZIP Co de Phone Number [facility] [place] [address] * POC, GLUCOSE (06/16/2024 2:21 AM EST) [...] CARE TEST O RDERABLES Performing Organization Address [facility] Co de Phone Number [facility] [place] [address] * (ABNORMAL) POC, GLUCOSE (06/16/2024 12:09 AM [...] CARE TEST O RDERABLES Performing Organization Address City/[facility]/ZIP Co de Phone Number [facility] [place] [address] * (ABNORMAL) POC, GLUCOSE (06/15/2024 10:07 PM EST) Glucometer, POC 320(H) 65 - 199 mg/dL 06/15/2024 10:[address] [facility] Comment:Supplemental ranges: <140 mg/dL before meals <180 mg/dL all other times of the day. Blood CAPILLARY BLOOD / Unknown 06/15/2024 10:07 PM EST 06/15/2024 10:07 PM EST Bobby Loja MD POINT OF CARE TEST O NIKA Performing Organization Address [facility] de Phone Number [facility] [place] [address] * (ABNORMAL) POC, GLUCOSE (06/15/2024 7:56 PM EST) Glucometer, POC 304(H) 65 - 199 mg/dL 06/15/2024 7:[address] [facility] Comment:Supplemental ranges: <140 mg/dL before meals <180 mg/dL all other times of the day. Blood CAPILLARY BLOOD / Unknown 06/15/2024 7:56 PM EST 06/15/2024 7:56 PM EST Bobby Loja MD POINT OF CARE TEST Abimael MAHER Performing Organization Address [facility] de Phone Number [facility] [place] [address] * (ABNORMAL) POC, GLUCOSE (06/15/2024 7:52 PM [...] CARE TEST O NIKA Performing Organization Address City/[facility] Co de Phone Number [facility] [place] [address] * POC, GLUCOSE (06/15/2024 4:21 PM EST) Glucometer, POC 192 65 - 199 mg/dL 06/15/2024 4:[address] [facility] Comment:Supplemental ranges: <140 mg/dL before meals <180 mg/dL all other times of the day. Blood CAPILLARY BLOOD / Unknown 06/15/2024 4:21 PM EST 06/15/2024 4:21 PM EST Bobby Loja MD POINT OF CARE TEST O NIKA Performing Organization Address [facility] de Phone Number [facility] [place] [address] * POC, GLUCOSE (06/15/2024 3:27 PM EST) Glucometer, POC 155 65 - 199 mg/dL 06/15/2024 3:[address] [facility] Comment:Supplemental ranges: <140 mg/dL before meals <180 mg/dL all other times of the day. Blood CAPILLARY BLOOD / Unknown 06/15/2024 3:27 PM EST 06/15/2024 3:27 PM EST Bobby Loja MD POINT OF CARE TEST O NIKA Performing Organization Address [facility] Co de Phone Number [facility] [place] [address] * POC, GLUCOSE (06/15/2024 2:23 PM EST) Glucometer, POC 160 65 - 199 mg/dL 06/15/2024 2:[address] [facility] Comment:Supplemental ranges: <140 mg/dL before meals <180 mg/dL all other times of the day. Blood CAPILLARY BLOOD / Unknown 06/15/2024 2:23 PM EST 06/15/2024 2:23 PM EST Bobby Loja MD POINT OF CARE TEST O RDERABLES Performing Organization Address [facility] Co de Phone Number [facility] [place] [address] * POC, GLUCOSE (06/15/2024 1:26 PM EST) Glucometer, POC 167 65 - 199 mg/dL 06/15/2024 1:[address] [facility] Comment:Supplemental ranges: <140 mg/dL before meals <180 mg/dL all other times of the day. Blood CAPILLARY BLOOD / Unknown 06/15/2024 1:26 PM EST 06/15/2024 1:26 PM EST Bobby Loja MD POINT OF CARE TEST O NIKA Performing Organization Address [facility] Co de Phone Number [facility] [place] [address] * (ABNORMAL) POC, GLUCOSE (06/15/2024 12:55 PM EST) Glucometer, POC 210(H) 65 - 199 mg/dL 06/15/2024 12:[address] [facility] Comment:Supplemental ranges: <140 mg/dL before meals <180 mg/dL all other times of the day. Blood CAPILLARY BLOOD / Unknown 06/15/2024 12:55 PM EST 06/15/2024 12:55 PM EST Bobby Loja MD POINT OF CARE TEST O NIKA Performing Organization Address [facility] Co de Phone Number [facility] [place] [address] * (ABNORMAL) POC, GLUCOSE (06/15/2024 11:29 AM EST) Glucometer, POC 220(H) 65 - 199 mg/dL 06/15/2024 11:[address] [facility] Comment:Supplemental ranges: <140 mg/dL before meals <180 mg/dL all other times of the day. Blood CAPILLARY BLOOD / Unknown 06/15/2024 11:29 AM EST 06/15/2024 11:29 AM EST Bobby Loja MD POINT OF CARE TEST O RDERABLES [facility] [place] [address] * (ABNORMAL) Basic Metabolic Panel (06/15/2024 11:23 [...] Loja MD CHEMISTRY ORDERABLES Performing Organization Address [facility] Co de Phone Number [facility] [place] [address] * POC, GLUCOSE (06/15/2024 10:29 AM EST) [...] CARE TEST O RDERABLES Performing Organization Address City/[facility] Co de Phone Number [facility] [place] [address] * POC, GLUCOSE (06/15/2024 9:45 AM EST) [...] CARE TEST O RDERABLES Performing Organization Address City/[facility]/ZIP Co de Phone Number [facility] [place] [address] * (ABNORMAL) Cooximetry, POC (06/15/2024 9:31 AM [...] CARE TEST O RDERAPIETER Performing Organization Address [facility]/ZIP Co de Phone Number [facility] [place] [address] * Cooximetry, POC (06/15/2024 9:22 AM EST) [...] TEST O NIKA [facility] [place] [address] * (ABNORMAL) Blood Gas, Arterial POC (06/15/2024 [...] TEST O NIKA [facility] [place] [address] * (ABNORMAL) POC, GLUCOSE (06/15/2024 8:37 AM EST) [facility] Signature Glucometer, POC 204(H) 65 - 199 mg/dL 06/15/2024 8:37 AM [facility] Comment:Supplemental ranges: <140 mg/dL before meals <180 mg/dL all other times of the day. Blood CAPILLARY BLOOD / Unknown 06/15/2024 8:37 AM EST 06/15/2024 8:37 AM EST Narrative Authorizing Provider Result Saranya Loja MD POINT OF CARE TEST O RDBECKIE Performing Organization Address [facility] de Phone Number [facility] [place] [address] * POC, GLUCOSE (06/15/2024 7:37 AM EST) Glucometer, POC 199 65 - 199 mg/dL 06/15/2024 7:[address] [facility] Comment:Supplemental ranges: <140 mg/dL before meals <180 mg/dL all other times of the day. Blood CAPILLARY BLOOD / Unknown 06/15/2024 7:37 AM EST 06/15/2024 7:38 AM EST Bobby Loja MD POINT OF CARE TEST O NIKA Performing Organization Address [facility] de Phone Number [facility] [place] [address] * (ABNORMAL) POC, GLUCOSE (06/15/2024 7:01 AM EST) Glucometer, POC 203(H) 65 - 199 mg/dL 06/15/2024 7:[address] [facility] Comment:Supplemental ranges: <140 mg/dL before meals <180 mg/dL all other times of the day. Blood CAPILLARY BLOOD / Unknown 06/15/2024 7:01 AM EST 06/15/2024 7:01 AM EST Bobby Loja MD POINT OF CARE TEST O NIKA Performing Organization Address [facility] Co de Phone Number [facility] [place] [address] * XR Chest One View (06/15/2024 6:31 AM EST) WORKSTATION ID [id number] RAD Anatomical Region Laterality Modality Chest N/A [...] have questions please contact the health care rep that requested your imaging first. ? Electronically signed by: Stuart Aponte MD, [facility] ??([phone]), at 06/15/2024 10:38 AM Narrative 06/15/2024 10:38 [...] who have questions please contactthe health care rep that requested your imaging first. Authorizing Provider [...] CARE TEST O NIKA Performing Organization Address [facility]/ZIP Co de Phone Number [facility] [place] [address] * POC, GLUCOSE (06/15/2024 5:06 AM EST) [...] TEST O NIKA [facility] [place] [address] * POC, GLUCOSE (06/15/2024 4:05 AM EST) Glucometer, POC 160 65 - 199 mg/dL 06/15/2024 4:[address] [facility] Comment:Supplemental ranges: <140 mg/dL before meals <180 mg/dL all other times of the day. Blood CAPILLARY BLOOD / Unknown 06/15/2024 4:05 AM EST 06/15/2024 4:06 AM EST Bobby Loja MD POINT OF CARE TEST Abimael MAHER Performing Organization Address [facility] Co de Phone Number [facility] [place] [address] * POC, GLUCOSE (06/15/2024 3:07 AM EST) Glucometer, POC 151 65 - 199 mg/dL 06/15/2024 3:[address] [facility] Comment:Supplemental ranges: <140 mg/dL before meals <180 mg/dL all other times of the day. Blood CAPILLARY BLOOD / Unknown 06/15/2024 3:07 AM EST 06/15/2024 3:07 AM EST Bobby Loja MD POINT OF CARE TEST Abimael MAHER Performing Organization Address [facility] Co de Phone Number [facility] [place] [address] * (ABNORMAL) Basic Metabolic Panel (06/15/2024 1:48 [...] - 15 mMol/L 06/15/2024 2:[address] [facility] Calcium 8.3(L) 8.5 - 10.5 mg/dL 06/15/2024 2:[address] [facility] Est Glomerular Filtration Rate - Male 62 mL/min/1. 73 m?? 06/15/2024 2:[address] [facility] Comment: [...] MD CHEMISTRY ORDERABLES [facility] [place] [address] * (ABNORMAL) CBC (with Diff) (06/15/2024 1:48 AM EST) White Blood Cell 11.71(H) 4.00 - 9.50 x10(3)/mc L 06/15/2024 2:[address] [facility] Red Blood Cell 4.14(L) 4.58 - 5.54 x10(6)/mc L 06/15/2024 2:[address] [facility] Hemoglobin 12.5(L) 13.7 - 16.5 g/dL 06/15/2024 2:[address] [facility] Hematocrit 38.4(L) 40.5 - 48.5 [...] HEMATOLOGY ORDERABLE S [facility] [place] [address] * (ABNORMAL) Troponin - Single (06/15/2024 1:48 [...] [facility] Test Catalog Troponin - [email or web address]/[email or web address] Reference: Fourth [place] Definition of Myocardial Infarction. Journal of the [place] [employer] 2018;72:8197-3512 Blood VENOUS BLOOD SPECIMEN / Unknown Venipuncture / Unknown 06/15/2024 1:48 AM EST 06/15/2024 1:52 AM EST Bobby Loja MD CHEMISTRY ORDERABLES [facility] [place] [address] * (ABNORMAL) Blood Gas, Arterial POC (06/15/2024 [...] - 16.5 g/dL 06/15/2024 1:[address] [facility] Oxyhemoglobin, Arterial 97.9(H) 94.0 - [...] TEST O NIKA [facility] [place] [address] * POC, GLUCOSE (06/15/2024 1:05 AM EST) Glucometer, POC 116 65 - 199 mg/dL 06/15/2024 1:[address] [facility] Comment:Supplemental ranges: <140 mg/dL before meals <180 mg/dL all other times of the day. Blood CAPILLARY BLOOD / Unknown 06/15/2024 1:05 AM EST 06/15/2024 1:05 AM EST Bobby Loja MD POINT OF CARE TEST O RDERABLES Performing Organization Address [facility] Co de Phone Number [facility] [place] [address] * POC, GLUCOSE (06/15/2024 12:16 AM EST) Glucometer, POC 135 65 - 199 mg/dL 06/15/2024 12:[address] [facility] Comment:Supplemental ranges: <140 mg/dL before meals <180 mg/dL all other times of the day. Blood CAPILLARY BLOOD / Unknown 06/15/2024 12:16 AM EST 06/15/2024 12:16 AM EST Bobby Loja MD POINT OF CARE TEST O RDERABLES Performing Organization Address [facility] Co de Phone Number [facility] [place] [address] * Potassium (06/14/2024 11:28 PM EST) Potassium 4.1 3.5 - 5.0 mMol/L 06/14/2024 11:[address] [facility] Blood VENOUS BLOOD SPECIMEN / Unknown Venipuncture / Unknown 06/14/2024 11:28 PM EST 06/14/2024 11:34 PM EST Bobby Loja MD CHEMISTRY ORDERABLES Performing Organization Address City/[facility]/ZIP Co de Phone Number [facility] [place] [address] * POC, GLUCOSE (06/14/2024 10:58 PM EST) Glucometer, POC 126 65 - 199 mg/dL 06/14/2024 10:[address] [facility] Comment:Supplemental ranges: <140 mg/dL before meals <180 mg/dL all other times of the day. Blood CAPILLARY BLOOD / Unknown 06/14/2024 10:58 PM EST 06/14/2024 10:59 PM EST Bobby Loja MD POINT OF CARE TEST O NIKA Performing Organization Address City/[facility]/ZIP Co de Phone Number [facility] [place] [address] * POC, GLUCOSE (06/14/2024 9:55 PM EST) Glucometer, POC 152 65 - 199 mg/dL 06/14/2024 9:[address] [facility] Comment:Supplemental ranges: <140 mg/dL before meals <180 mg/dL all other times of the day. Blood CAPILLARY BLOOD / Unknown 06/14/2024 9:55 PM EST 06/14/2024 9:56 PM EST Bobby Loja MD POINT OF CARE TEST O NIKA Performing Organization Address City/[facility]/ZIP Co de Phone Number [facility] [place] [address] * POC, GLUCOSE (06/14/2024 8:54 PM EST) Glucometer, POC 151 65 - 199 mg/dL 06/14/2024 8:[address] [facility] Comment:Supplemental ranges: <140 mg/dL before meals <180 mg/dL all other times of the day. Blood CAPILLARY BLOOD / Unknown 06/14/2024 8:54 PM EST 06/14/2024 8:54 PM EST Bobby Loja MD POINT OF CARE TEST O NIKA Performing Organization Address [facility] Co de Phone Number [facility] [place] [address] * POC, GLUCOSE (06/14/2024 7:51 PM EST) Glucometer, POC 169 65 - 199 mg/dL 06/14/2024 7:[address] [facility] Comment:Supplemental ranges: <140 mg/dL before meals <180 mg/dL all other times of the day. Blood CAPILLARY BLOOD / Unknown 06/14/2024 7:51 PM EST 06/14/2024 7:52 PM EST Bobby Loja MD POINT OF CARE TEST Abimael MAHER Performing Organization Address [facility] Co de Phone Number [facility] [place] [address] * POC, GLUCOSE (06/14/2024 6:49 PM EST) Glucometer, POC 194 65 - 199 mg/dL 06/14/2024 6:[address] [facility] Comment:Supplemental ranges: <140 mg/dL before meals <180 mg/dL all other times of the day. Blood CAPILLARY BLOOD / Unknown 06/14/2024 6:49 PM EST 06/14/2024 6:50 PM EST Bobby Loja MD POINT OF CARE TEST Abimael MAHER Performing Organization Address City/[facility] Co de Phone Number [facility] [place] [address] * (ABNORMAL) Hemoglobin (06/14/2024 6:19 PM EST) Hemoglobin 13.1(L) 13.7 - 16.5 g/dL 06/14/2024 7:[address] [facility] Blood VENOUS BLOOD SPECIMEN / Unknown Venipuncture / Unknown 06/14/2024 6:19 PM EST 06/14/2024 6:28 PM EST Bobby Loja MD HEMATOLOGY ORDERABLE S Performing Organization Address [facility]/ZIP Co de Phone Number [facility] [place] [address] * Potassium (06/14/2024 6:19 PM EST) Potassium 3.9 3.5 - 5.0 mMol/L 06/14/2024 6:[address] [facility] Blood VENOUS BLOOD SPECIMEN / Unknown Venipuncture / Unknown 06/14/2024 6:19 PM EST 06/14/2024 6:28 PM EST Bobby Loja MD CHEMISTRY ORDERABLES Performing Organization Address [facility] Co de Phone Number [facility] [place] [address] * (ABNORMAL) POC, GLUCOSE (06/14/2024 6:03 PM EST) [facility] Glucometer, POC 201(H) 65 - 199 mg/dL 06/14/2024 6:[address] [facility] Comment:Supplemental ranges: <140 mg/dL before meals <180 mg/dL all other times of the day. Blood CAPILLARY BLOOD / Unknown 06/14/2024 6:03 PM EST 06/14/2024 6:03 PM EST Bobby Loja MD POINT OF CARE TEST O RDERABLES Performing Organization Address City/[facility]/ZIP Co de Phone Number [facility] [place] [address] * (ABNORMAL) Blood Gas, Arterial POC (06/14/2024 [...] CARE TEST O NIKA Performing Organization Address [facility] Co de Phone Number [facility] [place] [address] * POC, GLUCOSE (06/14/2024 4:00 PM EST) Glucometer, POC 184 65 - 199 mg/dL 06/14/2024 4:[address] [facility] Comment:Supplemental ranges: <140 mg/dL before meals <180 mg/dL all other times of the day. Blood CAPILLARY BLOOD / Unknown 06/14/2024 4:00 PM EST 06/14/2024 4:01 PM EST Bobby Loja MD POINT OF CARE TEST O NIKA Performing Organization Address [facility] de Phone Number [facility] [place] [address] * XR Chest One View (06/14/2024 3:05 PM EST) WORKSTATION ID [id number] RAD Anatomical Region Laterality Modality Chest N/A [...] have questions please contact the health care rep that requested your imaging first. ? Electronically signed by: Stuart Aponte MD, [facility] ??([phone]), at 06/14/2024 4:07 PM Narrative 06/14/2024 4:07 [...] who have questions please contactthe health care rep that requested your imaging first. Bobby Loja [...] - 145 mmol/L 06/14/2024 2:[address] [facility] Potassium, Arterial 4.2 3.5 - 5.0 mmol/L 06/14/2024 2:[address] [facility] Chloride, [...] TEST O RDERABLES [facility] [place] [address] * EKG 12 Lead (06/14/2024 2:46 PM EST) Ventricular rate 80 BPM MUSE SYSTEM Atrial Rate 80 BPM MUSE SYSTEM P-R Interval 120 ms MUSE SYSTEM QRS Duration 108 ms MUSE SYSTEM Q-T Interval 454 ms MUSE SYSTEM QTC Calculated (Bezet) 523 ms MUSE SYSTEM Calculated P Solen 70 degrees MUSE SYSTEM Calculated R Solen 56 degrees MUSE SYSTEM Calculated T Solen 50 degrees MUSE SYSTEM INTERPRETATION AV dual-paced rhythm Abnormal ECG When compared with ECG of 03-JUN-2024 01:45, Vent. rate has increased BY ??17 BPM Confirmed by MD Marisol, Shaheen ([id number]) on 06/15/2024 1:57:23 PM MUSE SYSTEM 06/14/2024 2:46 PM EST 06/15/2024 1:57 PM EST Bobby Loja MD ECG ORDERABLES MUSE SYSTEM * Prepare RBC (06/14/2024 2:27 PM EST) Status Information Returned [facility] Product Identification RBC [facility] Unit [facility] [id number] [facility] Product [facility] [id number] [facility] Unit Blood Type OPOS [facility] Specimen Expiration Date [facility] [address] [facility] Issue Date / Time [facility] Status [facility] Returned [facility] Product Identification RBC [facility] Unit Number [id number] [facility] Product [facility] [id number] [facility] Unit Blood Type OPOS [facility] Specimen Expiration Date [facility] [address] [facility] Issue Date / Time [facility] Blood 06/14/2024 6:2 5 AM EST Haja Byrnes MD BLOOD BANK PRODUCT O RDERABLES [facility] [place] [address] * (ABNORMAL) Cooximetry, POC (06/14/2024 1:52 PM [...] TEST O RDERABLES Performing Organization Address City/State/[facility] Co de Phone Number [facility] [place] [address] * (ABNORMAL) Blood Gas, Arterial POC (06/14/2024 [...] TEST O RDERABLES [facility] [place] [address] * (ABNORMAL) Cooximetry, POC (06/14/2024 12:42 PM [...] TEST O RDERABLES [facility] [place] [address] * (ABNORMAL) Platelet count (06/14/2024 12:30 PM EST) Platelet 73(L) 145 - 357 x10(3)/mcL 06/14/2024 12:[address] [facility] Blood ARTERIAL BLOOD / Unknown 06/14/2024 12:30 PM EST Comment:Pre-op diagnosis: CAD Bobby Loja MD HEMATOLOGY ORDERABLE S [facility] [place] [address] * (ABNORMAL) Hemoglobin and Hematocrit, blood (06/14/2024 [...] MD HEMATOLOGY ORDERABLE S Performing Organization Address [facility] Co de Phone Number [facility] [place] [address] * APTT (06/14/2024 12:30 PM EST) Partial [...] MD HEMATOLOGY ORDERABLE S Performing Organization Address [facility] Co de Phone Number [facility] [place] [address] * (ABNORMAL) Prothrombin Time (06/14/2024 12:30 PM [...] 06/14/2024 12:42 PM EST Comment:Pre-op diagnosis: CAD oBbby Loja MD HEMATOLOGY ORDERABLE S Performing Organization Address [facility] Co de Phone Number [facility] [place] [address] * Fibrinogen (06/14/2024 12:30 PM EST) Fibrinogen 211 200 - 393 mg/dL 06/14/2024 12:[address] [facility] Comment: A fibrinogen level >100 mg/dL is adequate for hemostasis in most patients without underlying bleeding disorders. Blood ARTERIAL BLOOD / Unknown 06/14/2024 12:30 PM EST 06/14/2024 12:42 PM EST Comment:Pre-op diagnosis: CAD Bobby Loja MD HEMATOLOGY ORDERABLE S Performing Organization Address [facility] Co de Phone Number [facility] [place] [address] * (ABNORMAL) Blood Gas, Arterial POC (06/14/2024 [...] TEST O RDERABLES [facility] [place] [address] * (ABNORMAL) Blood Gas, Arterial POC (06/14/2024 [...] - 1.33 mmol/L 06/14/2024 11:[address] [facility] Glucose, Arterial 148 65 - 199 mg/dL 06/14/2024 11:[address] [facility] Comment:Glucose Concentratio n >=200 mg/dL plus symptoms is consistent with Diabetes Mellitus. Blood ARTERIAL BLOOD / Unknown 06/14/2024 11:51 AM EST 06/14/2024 11:52 AM EST Haja Byrnes MD POINT OF CARE TEST O RDERABLES [facility] [place] [address] * (ABNORMAL) Blood Gas, Arterial POC (06/14/2024 [...] TEST O RDERABLES [facility] [place] [address] * (ABNORMAL) Scan, Peripheral Blood (06/14/2024 11:23 AM EST) RBC Morphology Abnormal 06/14/2024 11:59 AM [facility] Platelet Estimate Decreased(A) Normal 06/14/2024 11:59 AM [facility] [place] cells 1-5 /HPF 06/14/2024 11:59 AM [facility] Blood ARTERIAL BLOOD / Unknown 06/14/2024 11:23 AM EST 06/14/2024 11:27 AM EST Bobby Loja MD HEMATOLOGY ORDERABLE S [facility] [place] [address] * (ABNORMAL) Platelet count (06/14/2024 11:23 AM EST) Platelet 86(L) 145 - 357 x10(3)/mcL 06/14/2024 11:[address] [facility] Blood ARTERIAL BLOOD / Unknown 06/14/2024 11:23 AM EST Comment:Pre-op diagnosis: CAD Bobby Loja MD HEMATOLOGY ORDERABLE S Performing Organization Address [facility]/ZIP Co de Phone Number [facility] [place] [address] * (ABNORMAL) Hemoglobin and Hematocrit, blood (06/14/2024 [...] MD HEMATOLOGY ORDERABLE S Performing Organization Address City/[facility]/ZIP Co de Phone Number [facility] [place] [address] * (ABNORMAL) Blood Gas, Arterial POC (06/14/2024 10:[address] [facility]) pH, Arterial 7.38 7.35 - [...] TEST O RDERABLES [facility] [place] [address] * (ABNORMAL) Blood Gas, Arterial POC (06/14/2024 [...] TEST O RDERABLES [facility] [place] [address] * (ABNORMAL) Blood Gas, Arterial POC (06/14/2024 [...] POINT OF CARE TEST O RDERABLES [facility] [place] [address] * Surgical Pathology (06/14/2024 9:53 AM EST) Case Report Surgical Pathology Report ? Case: [id number] ? Authorizing Provider: ??Bobby Loja MD ? Collected: ? 06/14/2024 0953 ? Ordering Location: ? Main Operating Room Kristen ?? Received: ?06/14/2024 1413 ? [facility] ? Hospital ? Pathologist: ? [...] External surface inked black Sections/Process ing: Band Instrument Repairer sections in 4 cassettes labeled A1-A4. cmk B. Heart, Atrial Appendage, Left, . B - Labeled/Fixative : Heart, atrial appendage, left, fresh. Quantity/Size: Single, 3.3 x 1.5 x 0.8 cm. Tissue Description: Portion of heart tissue consisting of rodriguez-white, semitranslucent, smooth endocardium with rodriguez-brown muscular myocardium and thin translucent epicardium with adherent adipose tissue. No areas of discoloration identified. Sections/Process ing: Band Instrument Repairer sections in 1 cassette labeled B1. cmk [...] Comment:MARIALUISA Bobby Loja MD PATHOLOGY/CYTOLOGY O RDERAPIETER [facility] [place] [address] * Cooximetry, POC (06/14/2024 9:00 AM EST) [...] TEST O RDERABLES [facility] [place] [address] * (ABNORMAL) Blood Gas, Arterial POC (06/14/2024 [...] TEST O RDERABLES Performing Organization Address City/State/[facility] Co de Phone Number [facility] [place] [address] * Transesophageal Echo/OR (06/14/2024 7:20 AM EST) Anatomical Region Laterality Modality Cardiac Other 06/14/2024 7:20 AM EST Narrative 06/14/2024 4:36 PM EST Version: 2 Study ID: [id number] [address] [place] [address] ?OR Transesophageal Echo Report Name: GEORGE MEHTA [...] of this mass after consultation with other binding stitcher experts and the decision was made by [...] MD - 06/14/2024 Version: 2 Study ID: [id number] [address] [place] [id number] ORTransesophageal Echo Report Name: GEORGE MEHTA Study [...] of this mass after consultation with other binding stitcher experts and thedecision was made by surgeon [...] CARE TEST O RDERABLES Performing Organization Address City/[facility]/ZIP Co de Phone Number [facility] [place] [address] * POC, GLUCOSE (06/14/2024 4:30 AM EST) Glucometer, POC 85 65 - 199 mg/dL 06/14/2024 4:[address] [facility] Comment:Supplemental ranges: <140 mg/dL before meals <180 mg/dL all other times of the day. Blood CAPILLARY BLOOD / Unknown 06/14/2024 4:30 AM EST 06/14/2024 4:30 AM EST Haja Byrnes MD POINT OF CARE TEST O RDERABLES Performing Organization Address City/[facility]/ZIP Co de Phone Number [facility] [place] [address] * (ABNORMAL) Heparin (unfractionated) Level (06/14/2024 12:12 AM EST) Pathologist [facility] UF Heparin 1.02(HHH) IU/mL 06/14/2024 12:46 [...] HEMATOLOGY ORDERABLE S [facility] [place] [address] * (ABNORMAL) CBC (with Diff) (06/14/2024 12:12 AM EST) Pathologist [facility] White Blood Cell 10.51(H) 4.00 - 9.50 [...] % 3.9 % 06/14/2024 12:[address] [facility] Eos Absolute 0.41(H) 0.00 - 0.40 x10(3)/mc L 06/14/2024 12:[address] [facility] Basophil % 0.8 % 06/14/2024 12:[address] [facility] Baso [...] HEMATOLOGY ORDERABLE S [facility] [place] [address] * Magnesium (06/14/2024 12:12 AM EST) Magnesium 0.74 0.69 - 1.07 mMol/L 06/14/2024 12:[address] [facility] Blood VENOUS BLOOD SPECIMEN / Unknown Venipuncture / Unknown 06/14/2024 12:12 AM EST 06/14/2024 12:29 AM EST Shahnaz Scanlon MD CHEMISTRY ORDERABLES [facility] [place] [address] * (ABNORMAL) Basic Metabolic Panel (06/14/2024 12:12 [...] Scanlon MD CHEMISTRY ORDERABLES Performing Organization Address [facility]/ZIP Co de Phone Number [facility] [place] [address] * Scan Doc: Implantable Devices (06/14/2024 12:00 [...] CARE TEST O RDERABLES Performing Organization Address [facility]/ZIP Co de Phone Number [facility] [place] [address] * (ABNORMAL) POC, GLUCOSE (06/13/2024 8:03 PM EST) Glucometer, POC 206(H) 65 - 199 mg/dL 06/13/2024 8:[address] [facility] Comment:Supplemental ranges: <140 mg/dL before meals <180 mg/dL all other times of the day. Blood CAPILLARY BLOOD / Unknown 06/13/2024 8:03 PM EST 06/13/2024 8:03 PM EST Haja Byrnes MD POINT OF CARE TEST O RDERABLES Performing Organization Address City/[facility]/ZIP Co de Phone Number [facility] [place] [address] * Heparin (unfractionated) Level (06/13/2024 4:11 PM EST) [facility] UF Heparin 0.76 IU/mL 06/13/2024 4:24 PM [...] HEMATOLOGY ORDERABLE S [facility] [place] [address] * ABORH RECHECK (06/13/2024 4:11 PM EST) [facility] ABORH Recheck O POSITIVE 06/13/2024 4:50 PM EST [facility] Blood VENOUS BLOOD SPECIMEN / Unknown Venipuncture / Unknown 06/13/2024 4:11 PM EST 06/13/2024 4:19 PM EST Haja Byrnes MD BLOOD BANK LAB ORDER [facility] [place] [address] * (ABNORMAL) POC, GLUCOSE (06/13/2024 4:09 PM EST) Glucometer, POC 216(H) 65 - 199 mg/dL 06/13/2024 4:[address] [facility] Comment:Supplemental ranges: <140 mg/dL before meals <180 mg/dL all other times of the day. Blood CAPILLARY BLOOD / Unknown 06/13/2024 4:09 PM EST 06/13/2024 4:10 PM EST Haja Byrnes MD POINT OF CARE TEST O RDERABLES [facility] [place] [address] * Type and screen ([facility] [place]CGP/RAFITA) (06/13/2024 11:53 AM EST) [facility] ABORH Type O POSITIVE 06/13/2024 1:16 PM EST [facility] PATIENT HISTORY Not Found 06/13/2024 1:16 PM EST [facility] Expires at [id number] on: 06/16/2024 06/13/2024 1:16 PM EST [facility] ANTIBODY SCREEN AUTOMATED Negative 06/13/2024 1:16 PM EST [facility] T&S only valid at [facility] 06/13/2024 1:16 PM EST [facility] Blood VENOUS BLOOD SPECIMEN / Unknown Venipuncture / Unknown 06/13/2024 11:53 AM EST 06/13/2024 11:56 AM EST Narrative [facility] - 06/13/2024 1:16 PM EST This Type and Screen result is only valid at the [facility] Haja Byrnes MD BLOOD BANK LAB ORDER EUSEBIA [facility] [place] [address] * POC, GLUCOSE (06/13/2024 11:50 AM EST) Glucometer, POC 178 65 - 199 mg/dL 06/13/2024 11:[address] [facility] Comment:Supplemental ranges: <140 mg/dL before meals <180 mg/dL all other times of the day. Blood CAPILLARY BLOOD / Unknown 06/13/2024 11:50 AM EST 06/13/2024 11:51 AM EST Haja Byrnes MD POINT OF CARE TEST O RDERABLES [facility] [place] [address] * XR Chest One View (06/13/2024 10:35 AM EST) WORKSTATION ID [id number] RAD Anatomical Region Laterality Modality Chest N/A [...] have questions please contact the health care rep that requested your imaging first. ? Narrative [...] who have questions please contactthe health care rep that requested your imaging first. Haja Byrnes MD IMG DX ORDERABLES * CARDIAC CATHETERIZATION (06/13/2024 9:02 AM EST) Anatomical Region Laterality Modality Other Narrative 06/15/2024 9:07 AM EST ?[facility] ? Cardiac Catheterization/Intervention Report ? Patient Name: Tyson, George L. ? Procedure Date: 06/13/2024 ? A #: [id number] ? Primary Physician: Nuha Shen I ? Case #: [id number] ? File Name: [id number] ? Catheterization Order Number: [id number] ? [facility] ? Final Report [place], [place] ? Patient Name: ? George L. Tyson ? ID#: ?[id number] ? : ?1955 ? Procedure Date: ? June 13, 2024 ?Case #: ? [id number] ? Room: ? 6 ? Case Physician: [...] as ASA Class IV. The [facility] clinical frailty scale is 5: ?Mildly [...] procedure was Urgent. The indication for ?the radiographer cardiac catheterization visit is ACS greater than 24 hrs [...] angiography, vascular ?ultrasound and IABP insertion in radiographer cardiac catheterization. ? Nuha I Hermelinda, M.D. ? Electronically Signed by: Nuha Reyesry, M.D. ? Report Finalized: 06/15/2024 ??08:59 ? Procedure Note Nuha Shen MD - 06/15/2024 [facility] Cardiac Catheterization/Intervention Report Patient Name: George Mehta Procedure Date: 06/13/2024 A #: [id number] Primary Physician: Nuha Shen I Case #: [id number] File Name: [id number] Catheterization Order Number: [id number] [facility] FinalReport [place], [place] Patient Name: George Mehta ID#:[id number] :1955 Procedure Date: June 13, 2024 Case [...] as ASA Class IV. The [facility] clinical frailty scale is5: Mildly Frail. [...] diagnostic procedure was Urgent. The indicationfor the radiographer cardiac catheterization visit is ACS greater than 24 hrs [...] site angiography,vascular ultrasound and IABP insertion in radiographer cardiac catheterization. Nuha Shen M.D. Electronically Signed by: Nuha [...] MD CHEMISTRY ORDERABLES [facility] [place] [phone] * POC, GLUCOSE (06/13/2024 7:41 AM EST) Glucometer, POC 126 65 - 199 mg/dL 06/13/2024 7:[address] [facility] Comment:Supplemental ranges: <140 mg/dL before meals <180 mg/dL all other times of the day. Blood CAPILLARY BLOOD / Unknown 06/13/2024 7:41 AM EST 06/13/2024 7:41 AM EST Ethel Carrillo MD POINT OF CARE TEST O NIKA Performing Organization Address [facility] de Phone Number [facility] [place] [address] * POC, GLUCOSE (06/13/2024 3:25 AM EST) Glucometer, POC 99 65 - 199 mg/dL 06/13/2024 3:[address] [facility] Comment:Supplemental ranges: <140 mg/dL before meals <180 mg/dL all other times of the day. Blood CAPILLARY BLOOD / Unknown 06/13/2024 3:25 AM EST 06/13/2024 3:25 AM EST Ethel Carrillo MD POINT OF CARE TEST O NIKA Performing Organization Address [facility] de Phone Number [facility] [place] [address] * Heparin (unfractionated) Level (06/13/2024 2:26 AM [...] HEMATOLOGY ORDERABLE S [facility] [place] [address] * (ABNORMAL) CBC (with Diff) (06/13/2024 2:26 [...] HEMATOLOGY ORDERABLE S [facility] [place] [address] * Magnesium (06/13/2024 2:26 AM EST) Magnesium 0.78 0.69 - 1.07 mMol/L 06/13/2024 2:[address] [facility] Blood VENOUS BLOOD SPECIMEN / Unknown Venipuncture / Unknown 06/13/2024 2:26 AM EST 06/13/2024 2:31 AM EST Shahnaz Scanlon MD CHEMISTRY ORDERABLES Performing Organization Address City/[facility]/ZIP Co de Phone Number [facility] [place] [address] * (ABNORMAL) Basic Metabolic Panel (06/13/2024 2:26 [...] MD CHEMISTRY ORDERABLES [facility] [place] [address] * POC, GLUCOSE (06/12/2024 11:53 PM EST) [facility] Signature Glucometer, POC 141 65 - 199 mg/dL 06/12/2024 11:[address] [facility] Comment:Supplemental ranges: <140 mg/dL before meals <180 mg/dL all other times of the day. Blood CAPILLARY BLOOD / Unknown 06/12/2024 11:53 PM EST 06/12/2024 11:54 PM EST Ethel Carrillo MD POINT OF CARE TEST O RDERABLES Performing Organization Address City/[facility]/ZIP Co de Phone Number [facility] [place] [address] * POC, GLUCOSE (06/12/2024 7:32 PM EST) Glucometer, POC 158 65 - 199 mg/dL 06/12/2024 7:[address] [facility] Comment:Supplemental ranges: <140 mg/dL before meals <180 mg/dL all other times of the day. Blood CAPILLARY BLOOD / Unknown 06/12/2024 7:32 PM EST 06/12/2024 7:32 PM EST Ethel Carrillo MD POINT OF CARE TEST O RDBECKIE Performing Organization Address City/[facility]/ZIP Co de Phone Number [facility] [place] [address] * POC, GLUCOSE (06/12/2024 3:41 PM EST) Glucometer, POC 113 65 - 199 mg/dL 06/12/2024 3:[address] [facility] Comment:Supplemental ranges: <140 mg/dL before meals <180 mg/dL all other times of the day. Blood CAPILLARY BLOOD / Unknown 06/12/2024 3:41 PM EST 06/12/2024 3:41 PM EST Ethel Carrillo MD POINT OF CARE TEST O RDERAPIETER Performing Organization Address City/[facility]/ZIP Co de Phone Number [facility] [place] [address] * Potassium (06/12/2024 2:19 PM EST) Potassium 4.5 3.5 - 5.0 mMol/L 06/12/2024 2:[address] [facility] Blood VENOUS BLOOD SPECIMEN / Unknown Venipuncture / Unknown 06/12/2024 2:19 PM EST 06/12/2024 2:23 PM EST Shahnaz Scanlon MD CHEMISTRY ORDERABLES [facility] [place] [address] * (ABNORMAL) POC, GLUCOSE (06/12/2024 11:21 AM EST) Glucometer, POC 207(H) 65 - 199 mg/dL 06/12/2024 11:[address] [facility] Comment:Supplemental ranges: <140 mg/dL before meals <180 mg/dL all other times of the day. Blood CAPILLARY BLOOD / Unknown 06/12/2024 11:21 AM EST 06/12/2024 11:22 AM EST Ethel Carrillo MD POINT OF CARE TEST O NIKA Performing Organization Address City/[facility]/ZIP Co de Phone Number [facility] [place] [address] * POC, GLUCOSE (06/12/2024 8:00 AM EST) Glucometer, POC 169 65 - 199 mg/dL 06/12/2024 8:[address] [facility] Comment:Supplemental ranges: <140 mg/dL before meals <180 mg/dL all other times of the day. Blood CAPILLARY BLOOD / Unknown 06/12/2024 8:00 AM EST 06/12/2024 8:01 AM EST Ethel Carrillo MD POINT OF CARE TEST O NIKA [facility] [place] [address] * POC, GLUCOSE (06/12/2024 4:25 AM EST) Glucometer, POC 132 65 - 199 mg/dL 06/12/2024 4:[address] [facility] Comment:Supplemental ranges: <140 mg/dL before meals <180 mg/dL all other times of the day. Blood CAPILLARY BLOOD / Unknown 06/12/2024 4:25 AM EST 06/12/2024 4:26 AM EST Ethel Carrillo MD POINT OF CARE TEST O RDERABLES Performing Organization Address [facility]/ZIP Co de Phone Number [facility] [place] [address] * Heparin (unfractionated) Level (06/12/2024 3:03 AM [...] MD HEMATOLOGY ORDERABLE S Performing Organization Address City/[facility]/ZIP Co de Phone Number [facility] [place] [address] * (ABNORMAL) CBC (with Diff) (06/12/2024 3:03 [...] % 11.1 % 06/12/2024 3:[address] [facility] Monocyte Absolute 1.08(H) 0.30 - 0.90 x10(3)/mc L 06/12/2024 3:36 AM [facility] Eos % 4.1 % 06/12/2024 3:36 AM [facility] Eos Absolute 0.40 0.00 - 0.40 x10(3)/mc L 06/12/2024 3:[address] [facility] Basophil % 0.8 % 06/12/2024 [...] EST Shahnaz Scanlon MD [place] [address] * Magnesium (06/12/2024 3:03 AM EST) Magnesium 0.79 0.69 - 1.07 mMol/L 06/12/2024 4:01 AM [facility] Blood VENOUS BLOOD SPECIMEN / Unknown Venipuncture / Unknown 06/12/2024 3:03 AM EST 06/12/2024 3:30 AM EST Shahnaz Scanlon MD CHEMISTRY ORDERABLES [facility] [place] [address] * (ABNORMAL) Basic Metabolic Panel (06/12/2024 3:03 [...] Scanlon MD CHEMISTRY ORDERABLES Performing Organization Address [facility] Co de Phone Number [facility] [place] [address] * POC, GLUCOSE (06/11/2024 11:56 PM EST) Glucometer, POC 135 65 - 199 mg/dL 06/11/2024 11:[address] [facility] Comment:Supplemental ranges: <140 mg/dL before meals <180 mg/dL all other times of the day. Blood CAPILLARY BLOOD / Unknown 06/11/2024 11:56 PM EST 06/11/2024 11:56 PM EST Ethel Carrillo MD POINT OF CARE TEST Abimael MAHER Performing Organization Address [facility] de Phone Number [facility] [place] [address] * (ABNORMAL) POC, GLUCOSE (06/11/2024 8:25 PM EST) Glucometer, POC 210(H) 65 - 199 mg/dL 06/11/2024 8:[address] [facility] Comment:Supplemental ranges: <140 mg/dL before meals <180 mg/dL all other times of the day. Blood CAPILLARY BLOOD / Unknown 06/11/2024 8:25 PM EST 06/11/2024 8:26 PM EST Ethel Carrillo MD POINT OF CARE TEST O NIKA Performing Organization Address [facility] Co de Phone Number [facility] [place] [address] * POC, GLUCOSE (06/11/2024 4:24 PM EST) Glucometer, POC 81 65 - 199 mg/dL 06/11/2024 4:[address] [facility] Comment:Supplemental ranges: <140 mg/dL before meals <180 mg/dL all other times of the day. Blood CAPILLARY BLOOD / Unknown 06/11/2024 4:24 PM EST 06/11/2024 4:25 PM EST Ethel Carrillo MD POINT OF CARE TEST O RDERAPIETER Performing Organization Address City/[facility]/ZIP Co de Phone Number [facility] [place] [address] * (ABNORMAL) POC, GLUCOSE (06/11/2024 11:08 AM EST) Glucometer, POC 233(H) 65 - 199 mg/dL 06/11/2024 11:[address] [facility] Comment:Supplemental ranges: <140 mg/dL before meals <180 mg/dL all other times of the day. Blood CAPILLARY BLOOD / Unknown 06/11/2024 11:08 AM EST 06/11/2024 11:08 AM EST Ethel Carrillo MD POINT OF CARE TEST O NIKA Performing Organization Address [facility]/ZIP Co de Phone Number [facility] [place] [address] * POC, GLUCOSE (06/11/2024 7:48 AM EST) Glucometer, POC 184 65 - 199 mg/dL 06/11/2024 7:[address] [facility] Comment:Supplemental ranges: <140 mg/dL before meals <180 mg/dL all other times of the day. Blood CAPILLARY BLOOD / Unknown 06/11/2024 7:48 AM EST 06/11/2024 7:49 AM EST Melida Valdes MD POINT OF CARE TEST O RDERAPIETER Performing Organization Address City/[facility]/ZIP Co de Phone Number [facility] [place] [address] * Heparin (unfractionated) Level (06/11/2024 5:31 AM [...] HEMATOLOGY ORDERABLE S [facility] [place] [address] * POC, GLUCOSE (06/11/2024 3:57 AM EST) Glucometer, POC 132 65 - 199 mg/dL 06/11/2024 3:[address] [facility] Comment:Supplemental ranges: <140 mg/dL before meals <180 mg/dL all other times of the day. Blood CAPILLARY BLOOD / Unknown 06/11/2024 3:57 AM EST 06/11/2024 3:58 AM EST Melida Valdes MD POINT OF CARE TEST O RDERABLES [facility] [place] [address] * (ABNORMAL) CBC (with Diff) (06/11/2024 2:[address] [facility] White Blood Cell 9.91(H) 4.00 - 9.50 [...] HEMATOLOGY ORDERABLE S [facility] [place] [address] * Magnesium (06/11/2024 2:13 AM EST) Magnesium 0.83 0.69 - 1.07 mMol/L 06/11/2024 2:[address] [facility] Blood VENOUS BLOOD SPECIMEN / Unknown Venipuncture / Unknown 06/11/2024 2:13 AM EST 06/11/2024 2:19 AM EST Shahnaz Scanlon MD CHEMISTRY ORDERABLES [facility] [place] [address] * (ABNORMAL) Basic Metabolic Panel (06/11/2024 2:13 AM EST) Pathologist [facility] Glucose 148 65 - 199 mg/dL [...] Scanlon MD CHEMISTRY ORDERABLES Performing Organization Address [facility]/ZIP Co de Phone Number [facility] [place] [address] * POC, GLUCOSE (06/11/2024 12:50 AM EST) Glucometer, POC 144 65 - 199 mg/dL 06/11/2024 12:[address] [facility] Comment:Supplemental ranges: <140 mg/dL before meals <180 mg/dL all other times of the day. Blood CAPILLARY BLOOD / Unknown 06/11/2024 12:50 AM EST 06/11/2024 12:51 AM EST Melida Valdes MD POINT OF CARE TEST O RDERABLES Performing Organization Address City/[facility]/ZIP Co de Phone Number [facility] [place] [address] * (ABNORMAL) POC, GLUCOSE (06/10/2024 7:22 PM EST) Glucometer, POC 236(H) 65 - 199 mg/dL 06/10/2024 7:[address] [facility] Comment:Supplemental ranges: <140 mg/dL before meals <180 mg/dL all other times of the day. Blood CAPILLARY BLOOD / Unknown 06/10/2024 7:22 PM EST 06/10/2024 7:22 PM EST Melida Valdes MD POINT OF CARE TEST O RDERABLES [facility] [place] [address] * (ABNORMAL) Blood Gas, Venous (06/10/2024 5:42 [...] Venous 39.0 % 06/10/2024 5:[address] [facility] Carboxyhemoglobin , Venous 0.3 % [...] MD CHEMISTRY ORDERABLES [facility] [place] [address] * POC, GLUCOSE (06/10/2024 5:35 PM EST) Glucometer, POC 123 65 - 199 mg/dL 06/10/2024 5:35 PM [facility] Comment:Supplemental ranges: <140 mg/dL before meals <180 mg/dL all other times of the day. Blood CAPILLARY BLOOD / Unknown 06/10/2024 5:35 PM EST 06/10/2024 5:35 PM EST Melida Valdes MD POINT OF CARE TEST O RDERABLES [facility] [place] [address] * (ABNORMAL) POC, GLUCOSE (06/10/2024 11:25 AM EST) Glucometer, POC 216(H) 65 - 199 mg/dL 06/10/2024 11:[address] [facility] Comment:Supplemental ranges: <140 mg/dL before meals <180 mg/dL all other times of the day. Blood CAPILLARY BLOOD / Unknown 06/10/2024 11:25 AM EST 06/10/2024 11:25 AM EST Melida Valdes MD POINT OF CARE TEST O NIKA Performing Organization Address City/[facility]/ZIP Co de Phone Number [facility] [place] [address] * (ABNORMAL) POC, GLUCOSE (06/10/2024 7:46 AM EST) Glucometer, POC 206(H) 65 - 199 mg/dL 06/10/2024 7:[address] [facility] Comment:Supplemental ranges: <140 mg/dL before meals <180 mg/dL all other times of the day. Blood CAPILLARY BLOOD / Unknown 06/10/2024 7:46 AM EST 06/10/2024 7:46 AM EST Melida Valdes MD POINT OF CARE TEST O NIKA Performing Organization Address [facility] Co de Phone Number [facility] [place] [address] * POC, GLUCOSE (06/10/2024 4:23 AM EST) Glucometer, POC 154 65 - 199 mg/dL 06/10/2024 4:[address] [facility] Comment:Supplemental ranges: <140 mg/dL before meals <180 mg/dL all other times of the day. Blood CAPILLARY BLOOD / Unknown 06/10/2024 4:23 AM EST 06/10/2024 4:24 AM EST Melida Valdes MD POINT OF CARE TEST O NIKA [facility] [place] [address] * (ABNORMAL) CBC (with Diff) (06/10/2024 1:55 [...] HEMATOLOGY ORDERABLE S [facility] [place] [address] * Magnesium (06/10/2024 1:55 AM EST) Magnesium 0.83 0.69 - 1.07 mMol/L 06/10/2024 2:[address] [facility] Blood VENOUS BLOOD SPECIMEN / Unknown Venipuncture / Unknown 06/10/2024 1:55 AM EST 06/10/2024 2:05 AM EST Shahnaz Scanlon MD CHEMISTRY ORDERABLES [facility] [place] [address] * (ABNORMAL) Basic Metabolic Panel (06/10/2024 1:55 AM EST) Pathologist [facility] Glucose 140 65 - 199 mg/dL [...] MD CHEMISTRY ORDERABLES [facility] [place] [address] * Heparin (unfractionated) Level (06/10/2024 1:54 AM [...] MD HEMATOLOGY ORDERABLE S Performing Organization Address City/[facility]/ZIP Co de Phone Number [facility] [place] [address] * POC, GLUCOSE (06/10/2024 12:05 AM EST) Glucometer, POC 125 65 - 199 mg/dL 06/10/2024 12:[address] [facility] Comment:Supplemental ranges: <140 mg/dL before meals <180 mg/dL all other times of the day. Blood CAPILLARY BLOOD / Unknown 06/10/2024 12:05 AM EST 06/10/2024 12:05 AM EST Melida Valdes MD POINT OF CARE TEST O RDERAPIETER Performing Organization Address [facility]/ZIP Co de Phone Number [facility] [place] [address] * POC, GLUCOSE (06/09/2024 8:36 PM EST) Glucometer, POC 197 65 - 199 mg/dL 06/09/2024 8:[address] [facility] Comment:Supplemental ranges: <140 mg/dL before meals <180 mg/dL all other times of the day. Blood CAPILLARY BLOOD / Unknown 06/09/2024 8:36 PM EST 06/09/2024 8:36 PM EST Melida Valdes MD POINT OF CARE TEST O NIKA [facility] [place] [address] * POC, GLUCOSE (06/09/2024 5:27 PM EST) Glucometer, POC 174 65 - 199 mg/dL 06/09/2024 5:[address] [facility] Comment:Supplemental ranges: <140 mg/dL before meals <180 mg/dL all other times of the day. Blood CAPILLARY BLOOD / Unknown 06/09/2024 5:27 PM EST 06/09/2024 5:28 PM EST Melida Valdes MD POINT OF CARE TEST O NIKA [facility] [place] [address] * (ABNORMAL) POC, GLUCOSE (06/09/2024 11:52 AM EST) Glucometer, POC 211(H) 65 - 199 mg/dL 06/09/2024 11:[address] [facility] Comment:Supplemental ranges: <140 mg/dL before meals <180 mg/dL all other times of the day. Blood CAPILLARY BLOOD / Unknown 06/09/2024 11:52 AM EST 06/09/2024 11:52 AM EST Melida Valdes MD POINT OF CARE TEST Abimael MAHER Performing Organization Address City/[facility]/ZIP Co de Phone Number [facility] [place] [address] * Potassium (06/09/2024 8:25 AM EST) Potassium 4.6 3.5 - 5.0 mMol/L 06/09/2024 10:[address] [facility] Blood VENOUS BLOOD SPECIMEN / Unknown Venipuncture / Unknown 06/09/2024 8:25 AM EST 06/09/2024 8:42 AM EST Shahnaz Scanlon MD CHEMISTRY ORDERABLES Performing Organization Address City/[facility]/ZIP Co de Phone Number [facility] [place] [address] * (ABNORMAL) POC, GLUCOSE (06/09/2024 8:10 AM EST) Glucometer, POC 209(H) 65 - 199 mg/dL 06/09/2024 8:[address] [facility] Comment:Supplemental ranges: <140 mg/dL before meals <180 mg/dL all other times of the day. Blood CAPILLARY BLOOD / Unknown 06/09/2024 8:10 AM EST 06/09/2024 8:11 AM EST Melida Valdes MD POINT OF CARE TEST O NIKA Performing Organization Address [facility] Co de Phone Number [facility] [place] [address] * POC, GLUCOSE (06/09/2024 4:40 AM EST) Glucometer, POC 131 65 - 199 mg/dL 06/09/2024 4:[address] [facility] Comment:Supplemental ranges: <140 mg/dL before meals <180 mg/dL all other times of the day. Blood CAPILLARY BLOOD / Unknown 06/09/2024 4:40 AM EST 06/09/2024 4:41 AM EST Melida Valdes MD POINT OF CARE TEST O NIKA Performing Organization Address [facility] Co de Phone Number [facility] [place] [address] * Heparin (unfractionated) Level (06/09/2024 2:12 AM [...] HEMATOLOGY ORDERABLE S [facility] [place] [address] * (ABNORMAL) CBC (with Diff) (06/09/2024 2:12 [...] MD HEMATOLOGY ORDERABLE S Performing Organization Address [facility]/ZIP Co de Phone Number [facility] [place] [address] * Magnesium (06/09/2024 2:12 AM EST) Magnesium 0.83 0.69 - 1.07 mMol/L 06/09/2024 2:52 AM [facility] Blood VENOUS BLOOD SPECIMEN / Unknown Venipuncture / Unknown 06/09/2024 2:12 AM EST 06/09/2024 2:22 AM EST Shahnaz Scanlon MD CHEMISTRY ORDERABLES Performing Organization Address City/[facility] Co de Phone Number [facility] [place] [address] * (ABNORMAL) Basic Metabolic Panel (06/09/2024 2:12 [...] - 31 mMol/L 06/09/2024 2:[address] [facility] Anion Gap 11 5 - 15 mMol/L 06/09/2024 2:[address] [facility] Calcium 9.7 8.5 - 10.5 mg/dL 06/09/2024 2:[address] [facility] Est Glomerular Filtration Rate - Male 73 mL/min/1. 73 m?? 06/09/2024 2:[address] [facility] Comment: [...] Scanlon MD CHEMISTRY ORDERABLES Performing Organization Address City/[facility]/ZIP Co de Phone Number [facility] [place] [address] * POC, GLUCOSE (06/09/2024 12:34 AM EST) [facility] Signature Glucometer, POC 186 65 - 199 mg/dL 06/09/2024 12:[address] [facility] Comment:Supplemental ranges: <140 mg/dL before meals <180 mg/dL all other times of the day. Blood CAPILLARY BLOOD / Unknown 06/09/2024 12:34 AM EST 06/09/2024 12:34 AM EST Melida Valdes MD POINT OF CARE TEST O RDERABLES [facility] [place] [address] * POC, GLUCOSE (06/08/2024 8:27 PM EST) Glucometer, POC 176 65 - 199 mg/dL 06/08/2024 8:[address] [facility] Comment:Supplemental ranges: <140 mg/dL before meals <180 mg/dL all other times of the day. Blood CAPILLARY BLOOD / Unknown 06/08/2024 8:27 PM EST 06/08/2024 8:28 PM EST Melida Valdes MD POINT OF CARE TEST O NIKA Performing Organization Address [facility] de Phone Number [facility] [place] [address] * POC, GLUCOSE (06/08/2024 4:16 PM EST) Glucometer, POC 159 65 - 199 mg/dL 06/08/2024 4:[address] [facility] Comment:Supplemental ranges: <140 mg/dL before meals <180 mg/dL all other times of the day. Blood CAPILLARY BLOOD / Unknown 06/08/2024 4:16 PM EST 06/08/2024 4:16 PM EST Melida Valdes MD POINT OF CARE TEST O NIKA Performing Organization Address [facility] Co de Phone Number [facility] [place] [address] * (ABNORMAL) POC, GLUCOSE (06/08/2024 12:35 PM EST) Glucometer, POC 226(H) 65 - 199 mg/dL 06/08/2024 12:[address] [facility] Comment:Supplemental ranges: <140 mg/dL before meals <180 mg/dL all other times of the day. Blood CAPILLARY BLOOD / Unknown 06/08/2024 12:35 PM EST 06/08/2024 12:35 PM EST Melida Valdes MD POINT OF CARE TEST O NIKA Performing Organization Address City/[facility] Co de Phone Number [facility] [place] [address] * POC, GLUCOSE (06/08/2024 8:10 AM EST) Glucometer, POC 190 65 - 199 mg/dL 06/08/2024 8:[address] [facility] Comment:Supplemental ranges: <140 mg/dL before meals <180 mg/dL all other times of the day. Blood CAPILLARY BLOOD / Unknown 06/08/2024 8:10 AM EST 06/08/2024 8:14 AM EST Melida Valdes MD POINT OF CARE TEST O NIKA Performing Organization Address [facility] de Phone Number [facility] [place] [address] * POC, GLUCOSE (06/08/2024 4:09 AM EST) Glucometer, POC 151 65 - 199 mg/dL 06/08/2024 4:[address] [facility] Comment:Supplemental ranges: <140 mg/dL before meals <180 mg/dL all other times of the day. Blood CAPILLARY BLOOD / Unknown 06/08/2024 4:09 AM EST 06/08/2024 4:10 AM EST Melida Valdes MD POINT OF CARE TEST O NIKA Performing Organization Address City/[facility] Co de Phone Number [facility] [place] [address] * Heparin (unfractionated) Level (06/08/2024 3:21 AM [...] HEMATOLOGY ORDERABLE S Performing Organization Address City/State/[facility] Co de Phone Number [facility] [place] [address] * (ABNORMAL) CBC (with Diff) (06/08/2024 3:21 [...] % 0.8 % 06/08/2024 3:[address] [facility] Baso [...] MD HEMATOLOGY ORDERABLE S Performing Organization Address City/[facility]/ZIP Co de Phone Number [facility] [place] [address] * Magnesium (06/08/2024 3:21 AM EST) Magnesium 0.84 0.69 - 1.07 mMol/L 06/08/2024 3:59 AM [facility] Blood VENOUS BLOOD SPECIMEN / Unknown Venipuncture / Unknown 06/08/2024 3:21 AM EST 06/08/2024 3:27 AM EST Shahnaz Scanlon MD CHEMISTRY ORDERABLES [facility] [place] [address] * (ABNORMAL) Basic Metabolic Panel (06/08/2024 3:21 AM EST) Glucose 173 65 - 199 mg/dL 06/08/2024 3:59 AM [facility] Comment:Glucose Concentratio n >=200 mg/dL plus symptoms is consistent with Diabetes Mellitus. Blood Urea Nitrogen 25(H) 10 - 20 mg/dL 06/08/2024 3:59 AM [facility] Creatinine 1.09 0.80 - 1.50 mg/dL 06/08/2024 3:[address] [facility] Sodium 135 135 - 145 [...] MD CHEMISTRY ORDERABLES [facility] [place] [address] * POC, GLUCOSE (06/07/2024 11:57 PM EST) Glucometer, POC 188 65 - 199 mg/dL 06/07/2024 11:[address] [facility] Comment:Supplemental ranges: <140 mg/dL before meals <180 mg/dL all other times of the day. Blood CAPILLARY BLOOD / Unknown 06/07/2024 11:57 PM EST 06/07/2024 11:58 PM EST Melida Valdes MD POINT OF CARE TEST O NIKA Performing Organization Address City/[facility]/ZIP Co de Phone Number [facility] [place] [address] * POC, GLUCOSE (06/07/2024 8:05 PM EST) Glucometer, POC 118 65 - 199 mg/dL 06/07/2024 8:[address] [facility] Comment:Supplemental ranges: <140 mg/dL before meals <180 mg/dL all other times of the day. Blood CAPILLARY BLOOD / Unknown 06/07/2024 8:05 PM EST 06/07/2024 8:06 PM EST Melida Valdes MD POINT OF CARE TEST O NIKA Performing Organization Address [facility] Co de Phone Number [facility] [place] [address] * Potassium (06/07/2024 5:22 PM EST) Potassium 4.6 3.5 - 5.0 mMol/L 06/07/2024 5:[address] [facility] Blood VENOUS BLOOD SPECIMEN / Unknown Venipuncture / Unknown 06/07/2024 5:22 PM EST 06/07/2024 5:26 PM EST Shahnaz Scanlon MD CHEMISTRY ORDERABLES Performing Organization Address City/[facility] Co de Phone Number [facility] [place] [address] * POC, GLUCOSE (06/07/2024 4:31 PM EST) Glucometer, POC 174 65 - 199 mg/dL 06/07/2024 4:[address] [facility] Comment:Supplemental ranges: <140 mg/dL before meals <180 mg/dL all other times of the day. Blood CAPILLARY BLOOD / Unknown 06/07/2024 4:31 PM EST 06/07/2024 4:34 PM EST Melida Valdes MD POINT OF CARE TEST O RDERABLES [facility] [place] [place] [address] * MRI Cardiac Morphology Function wwo Contrast (06/07/2024 1:10 PM EST) Pathologist [employer] WORKSTATION ID [id number] DH RAD Anatomical Region Laterality Modality Magnetic [...] - Mildly dilated left ventricle size with hhjylbtq-oj-zcslikwr decreased LV systolic function. ??LV ejection fraction [...] have questions please contact the health care rep that requested your imaging first. ? Narrative [...] VENTRICLE: Mildly dilated left ventricle size with fiublcis-xm-pzprovoa decreased LV systolic function. ??LV ejection fraction [...] VENTRICLE: Mildly dilated left ventricle size with nbdecwjn-el-mofzxmgr decreasedLV systolic function. LV ejection fraction is [...] - Mildly dilated left ventricle size with pqtpbxlf-mx-wjbrrxfs decreasedLV systolic function. LV ejection fraction is [...] who have questions please contactthe health care rep that requested your imaging first. Delroy Fofana MD [facility] MRI ORDERABLES * (ABNORMAL) [...] TEST O RDERABLES [facility] [place] [address] * (ABNORMAL) POC, GLUCOSE (06/07/2024 11:03 AM EST) Glucometer, POC 250(H) 65 - 199 mg/dL 06/07/2024 11:[address] [facility] Comment:Supplemental ranges: <140 mg/dL before meals <180 mg/dL all other times of the day. Blood CAPILLARY BLOOD / Unknown 06/07/2024 11:03 AM EST 06/07/2024 11:04 AM EST Melida Valdes MD POINT OF CARE TEST O RDERABLES [facility] [place] [address] * Potassium (06/07/2024 9:44 AM EST) Potassium 4.7 3.5 - 5.0 mMol/L 06/07/2024 10:[address] [facility] Blood VENOUS BLOOD SPECIMEN / Unknown Venipuncture / Unknown 06/07/2024 9:44 AM EST 06/07/2024 9:57 AM EST Shahnaz Scanlon MD CHEMISTRY ORDERABLES [facility] [place] [address] * POC, GLUCOSE (06/07/2024 7:45 AM EST) Glucometer, POC 175 65 - 199 mg/dL 06/07/2024 7:[address] [facility] Comment:Supplemental ranges: <140 mg/dL before meals <180 mg/dL all other times of the day. Blood CAPILLARY BLOOD / Unknown 06/07/2024 7:45 AM EST 06/07/2024 7:46 AM EST Melida Valdes MD POINT OF CARE TEST O RDERABLES [facility] [place] [address] * XR Chest PA & Lateral (Generic) (06/07/2024 7:03 AM EST) WORKSTATION ID [id number] RAD Anatomical Region Laterality Modality Chest N/A [...] have questions please contact the health care rep that requested your imaging first. ? Electronically signed by: Stuart Aponte MD, [facility] ??([phone]), at 06/07/2024 10:45 AM Narrative 06/07/2024 10:45 [...] who have questions please contactthe health care rep that requested your imaging first. Shahnaz Scanlon MD IMG DX ORDERABLES * POC, GLUCOSE (06/07/2024 4:25 AM EST) [facility] Signature Glucometer, POC 127 65 - 199 mg/dL 06/07/2024 4:[address] [facility] Comment:Supplemental ranges: <140 mg/dL before meals <180 mg/dL all other times of the day. Blood CAPILLARY BLOOD / Unknown 06/07/2024 4:25 AM EST 06/07/2024 4:26 AM EST Melida Valdes MD POINT OF CARE TEST O RDERABLES Performing Organization Address [facility]/ZIP Co de Phone Number [facility] [place] [address] * Heparin (unfractionated) Level (06/07/2024 2:41 AM [...] HEMATOLOGY ORDERABLE S [facility] [place] [address] * (ABNORMAL) CBC (with Diff) (06/07/2024 2:41 [...] HEMATOLOGY ORDERABLE S [facility] [place] [address] * Magnesium (06/07/2024 2:41 AM EST) Magnesium 0.92 0.69 - 1.07 mMol/L 06/07/2024 3:25 AM [facility] Blood VENOUS BLOOD SPECIMEN / Unknown Venipuncture / Unknown 06/07/2024 2:41 AM EST 06/07/2024 2:51 AM EST Shahnaz Scanlon MD CHEMISTRY ORDERABLES [facility] [place] [address] * (ABNORMAL) Basic Metabolic Panel (06/07/2024 2:41 [...] Scanlon MD CHEMISTRY ORDERABLES Performing Organization Address City/[facility]/ZIP Co de Phone Number [facility] [place] [address] * POC, GLUCOSE (06/07/2024 12:08 AM EST) Glucometer, POC 182 65 - 199 mg/dL 06/07/2024 12:[address] [facility] Comment:Supplemental ranges: <140 mg/dL before meals <180 mg/dL all other times of the day. Blood CAPILLARY BLOOD / Unknown 06/07/2024 12:08 AM EST 06/07/2024 12:09 AM EST Melida Valdes MD POINT OF CARE TEST O NIKA Performing Organization Address [facility] Co de Phone Number [facility] [place] [address] * POC, GLUCOSE (06/06/2024 8:18 PM EST) Glucometer, POC 143 65 - 199 mg/dL 06/06/2024 8:[address] [facility] Comment:Supplemental ranges: <140 mg/dL before meals <180 mg/dL all other times of the day. Blood CAPILLARY BLOOD / Unknown 06/06/2024 8:18 PM EST 06/06/2024 8:19 PM EST Melida Valdes MD POINT OF CARE TEST O NIKA Performing Organization Address City/[facility]/ZIP Co de Phone Number [facility] [place] [address] * POC, GLUCOSE (06/06/2024 3:39 PM EST) Glucometer, POC 147 65 - 199 mg/dL 06/06/2024 3:[address] [facility] Comment:Supplemental ranges: <140 mg/dL before meals <180 mg/dL all other times of the day. Blood CAPILLARY BLOOD / Unknown 06/06/2024 3:39 PM EST 06/06/2024 3:40 PM EST Melida Valdes MD POINT OF CARE TEST O NIKA Performing Organization Address City/[facility]/ZIP Co de Phone Number [facility] [place] [address] * Potassium (06/06/2024 2:37 PM EST) Potassium 4.3 3.5 - 5.0 mMol/L 06/06/2024 3:[address] [facility] Blood VENOUS BLOOD SPECIMEN / Unknown Venipuncture / Unknown 06/06/2024 2:37 PM EST 06/06/2024 2:42 PM EST Shahnaz Scanlon MD CHEMISTRY ORDERABLES Performing Organization Address [facility] Co de Phone Number [facility] [place] [address] * (ABNORMAL) POC, GLUCOSE (06/06/2024 1:39 PM EST) Glucometer, POC 317(H) 65 - 199 mg/dL 06/06/2024 1:[address] [facility] Comment:Supplemental ranges: <140 mg/dL before meals <180 mg/dL all other times of the day. Blood CAPILLARY BLOOD / Unknown 06/06/2024 1:39 PM EST 06/06/2024 1:41 PM EST Melida Valdes MD POINT OF CARE TEST O NIKA Performing Organization Address City/[facility]/ZIP Co de Phone Number [facility] [place] [address] * (ABNORMAL) POC, GLUCOSE (06/06/2024 11:34 AM EST) Glucometer, POC 264(H) 65 - 199 mg/dL 06/06/2024 11:[address] [facility] Comment:Supplemental ranges: <140 mg/dL before meals <180 mg/dL all other times of the day. Blood CAPILLARY BLOOD / Unknown 06/06/2024 11:34 AM EST 06/06/2024 11:35 AM EST Melida Valdes MD POINT OF CARE TEST O RDBECKIE Performing Organization Address City/[facility] Co de Phone Number [facility] [place] [address] * Potassium (06/06/2024 10:17 AM EST) Potassium 4.3 3.5 - 5.0 mMol/L 06/06/2024 10:[address] [facility] Blood VENOUS BLOOD SPECIMEN / Unknown Venipuncture / Unknown 06/06/2024 10:17 AM EST 06/06/2024 10:22 AM EST Shahnaz Scanlon MD CHEMISTRY ORDERABLES Performing Organization Address [facility] Co de Phone Number [facility] [place] [address] * POC, GLUCOSE (06/06/2024 7:57 AM EST) Glucometer, POC 195 65 - 199 mg/dL 06/06/2024 8:[address] [facility] Comment:Supplemental ranges: <140 mg/dL before meals <180 mg/dL all other times of the day. Blood CAPILLARY BLOOD / Unknown 06/06/2024 7:57 AM EST 06/06/2024 8:03 AM EST Melida Valdes MD POINT OF CARE TEST O RDERAPIETER Performing Organization Address City/[facility] Co de Phone Number [facility] [place] [address] * POC, GLUCOSE (06/06/2024 6:53 AM EST) Glucometer, POC 187 65 - 199 mg/dL 06/06/2024 6:[address] [facility] Comment:Supplemental ranges: <140 mg/dL before meals <180 mg/dL all other times of the day. Blood CAPILLARY BLOOD / Unknown 06/06/2024 6:53 AM EST 06/06/2024 6:54 AM EST Melida Valdes MD POINT OF CARE TEST O RDERABLES Performing Organization Address City/[facility]/ZIP Co de Phone Number [facility] [place] [address] * (ABNORMAL) Hemoglobin A1c (06/06/2024 3:33 AM EST) [facility] Hemoglobin A1c 7.1(H) 4.3 - 5.6 % [...] red blood cell turnover may not be career representative of glycemic control. Reference Interval: 4.3 - 5.6% 5.7 - 6.4%: Consistent with prediabetes >=6.5%: Consistent with diagnosis of diabetes mellitus Estimated Average Glucose 157 mg/dL 06/06/2024 1:[address] [facility] Blood VENOUS BLOOD SPECIMEN / Unknown Venipuncture / Unknown 06/06/2024 3:33 AM EST 06/06/2024 3:48 AM EST Alejandra Baumann APRN CHEMISTRY ORDERAB LES Performing Organization Address City/[facility]/ZIP Co de Phone Number [facility] [place] [address] * Heparin (unfractionated) Level (06/06/2024 3:33 AM EST) Pathologist [facility] UF Heparin 0.36 IU/mL 06/06/2024 3:59 [...] HEMATOLOGY ORDERABLE S Performing Organization Address City/State/[facility] Co de Phone Number [facility] [place] [address] * (ABNORMAL) CBC (with Diff) (06/06/2024 3:33 AM EST) Pathologist [facility] White Blood Cell 9.81(H) 4.00 - [...] HEMATOLOGY ORDERABLE S [facility] [place] [address] * Magnesium (06/06/2024 3:33 AM EST) Magnesium 0.92 0.69 - 1.07 mMol/L 06/06/2024 4:[address] [facility] Blood VENOUS BLOOD SPECIMEN / Unknown Venipuncture / Unknown 06/06/2024 3:33 AM EST 06/06/2024 3:47 AM EST Shahnaz Scanlon MD CHEMISTRY ORDERABLES [facility] [place] [address] * (ABNORMAL) Basic Metabolic Panel (06/06/2024 3:33 [...] MD CHEMISTRY ORDERABLES [facility] [place] [address] * (ABNORMAL) POC, GLUCOSE (06/05/2024 10:31 PM EDT) Glucometer, POC 238(H) 65 - 199 mg/dL 06/05/2024 10:[address] [facility] Comment:Supplemental ranges: <140 mg/dL before meals <180 mg/dL all other times of the day. Blood CAPILLARY BLOOD / Unknown 06/05/2024 10:31 PM EDT 06/05/2024 10:31 PM EDT Melida Valdes MD POINT OF CARE TEST O RDERABLES [facility] [place] [address] * (ABNORMAL) POC, GLUCOSE (06/05/2024 4:22 PM EDT) Glucometer, POC 205(H) 65 - 199 mg/dL 06/05/2024 4:[address] [facility] Comment:Supplemental ranges: <140 mg/dL before meals <180 mg/dL all other times of the day. Blood CAPILLARY BLOOD / Unknown 06/05/2024 4:22 PM EDT 06/05/2024 4:23 PM EDT Melida Valdes MD POINT OF CARE TEST O RDERAPIETER [facility] [place] [address] * (ABNORMAL) POC, GLUCOSE (06/05/2024 11:34 AM EDT) Glucometer, POC 211(H) 65 - 199 mg/dL 06/05/2024 11:[address] [facility] Comment:Supplemental ranges: <140 mg/dL before meals <180 mg/dL all other times of the day. Blood CAPILLARY BLOOD / Unknown 06/05/2024 11:34 AM EDT 06/05/2024 11:34 AM EDT Melida Valdes MD POINT OF CARE TEST O NIKA Performing Organization Address City/[facility] Co de Phone Number [facility] [place] [address] * Potassium (06/05/2024 9:04 AM EDT) Potassium 4.3 3.5 - 5.0 mMol/L 06/05/2024 9:[address] [facility] Blood VENOUS BLOOD SPECIMEN / Unknown Venipuncture / Unknown 06/05/2024 9:04 AM EDT 06/05/2024 9:21 AM EDT Shahnaz Scanlon MD CHEMISTRY ORDERABLES Performing Organization Address [facility] Co de Phone Number [facility] [place] [address] * POC, GLUCOSE (06/05/2024 7:27 AM EDT) Glucometer, POC 166 65 - 199 mg/dL 06/05/2024 7:[address] [facility] Comment:Supplemental ranges: <140 mg/dL before meals <180 mg/dL all other times of the day. Blood CAPILLARY BLOOD / Unknown 06/05/2024 7:27 AM EDT 06/05/2024 7:27 AM EDT Melida Valdes MD POINT OF CARE TEST O NIKA Performing Organization Address [facility] Co de Phone Number [facility] [place] [address] * Heparin (unfractionated) Level (06/05/2024 3:44 AM [...] HEMATOLOGY ORDERABLE S [facility] [place] [address] * (ABNORMAL) CBC (with Diff) (06/05/2024 3:44 [...] 82.9 - 93.1 fL 06/05/2024 3:56 AM [facility] Mean Cell Hemoglobin 30.2 27.5 - 32.1 pg 06/05/2024 3:56 AM [facility] Mean Cell Hemoglobin Concentration 32.7 32.0 - 35.7 g/dL 06/05/2024 3:56 AM [facility] Platelet 219 145 - 357 x10(3)/mc L 06/05/2024 3:56 AM [facility] Mean Platelet Volume 9.4 7.6 - 12.9 fL 06/05/2024 3:56 AM [facility] RDW Standard Deviation 46.7(H) 36.0 - 45.0 fL 06/05/2024 3:56 AM [facility] RDW coefficient of variation 13.9(H) 11.4 - 13.8 % 06/05/2024 3:56 AM [facility] NRBC% auto 0.0 % 06/05/2024 3:56 AM [facility] NRBC Absolute <0.01 <0.01 x10(3)/mc L 06/05/2024 3:56 AM [facility] Neutrophil % 61.5 % 06/05/2024 3:56 AM [facility] Neutrophil Absolute (ANC) - Automated 6.65(H) 1.70 - 6.10 x10(3)/mc L 06/05/2024 3:56 AM [facility] Lymph % 24.0 % 06/05/2024 3:56 AM [facility] Lymph Absolute 2.60 0.90 - 3.20 x10(3)/mc L 06/05/2024 3:56 AM [facility] Monocyte % 10.9 % 06/05/2024 3:56 AM [facility] Monocyte Absolute 1.18(H) 0.30 - 0.90 x10(3)/mc L 06/05/2024 3:56 AM [facility] Eos % 2.2 % [...] 3:44 AM EDT 06/05/2024 3:50 AM EDT hSahnaz Scanlon MD HEMATOLOGY ORDERABLE S [facility] [place] [address] * Magnesium (06/05/2024 3:44 AM EDT) Magnesium 0.92 0.69 - 1.07 mMol/L 06/05/2024 4:[address] [facility] Blood VENOUS BLOOD SPECIMEN / Unknown Venipuncture / Unknown 06/05/2024 3:44 AM EDT 06/05/2024 3:50 AM EDT Shahnaz Scanlon MD CHEMISTRY ORDERABLES [facility] [place] [address] * (ABNORMAL) Basic Metabolic Panel (06/05/2024 3:44 AM EDT) Glucose 155 65 - 199 mg/dL 06/05/2024 4:20 AM [facility] Comment:Glucose Concentratio n >=200 mg/dL plus symptoms is consistent with Diabetes Mellitus. Blood Urea Nitrogen 25(H) 10 - 20 mg/dL 06/05/2024 4:20 AM [facility] Creatinine 1.16 0.80 - 1.50 mg/dL 06/05/2024 4:20 AM [facility] Sodium 136 135 - 145 mMol/L 06/05/2024 4:20 AM [facility] Potassium 3.9 3.5 - 5.0 mMol/L 06/05/2024 4:20 AM [facility] Chloride 95(L) 98 - 107 mMol/L 06/05/2024 4:20 AM [facility] Carbon Dioxide 29 22 - 31 mMol/L 06/05/2024 4:20 AM [facility] Anion Gap 12 5 - 15 mMol/L 06/05/2024 4:20 AM [facility] Calcium 9.2 8.5 - 10.5 mg/dL 06/05/2024 4:20 AM [facility] Est Glomerular Filtration Rate - Male 69 mL/min/1. 73 m?? 06/05/2024 4:20 AM [facility] Comment: [...] Scanlon MD CHEMISTRY ORDERABLES Performing Organization Address City/[facility]/ZIP Co de Phone Number [facility] [place] [address] * Potassium (06/04/2024 10:34 PM EDT) Potassium 3.7 3.5 - 5.0 mMol/L 06/04/2024 11:[address] [facility] Blood VENOUS BLOOD SPECIMEN / Unknown Venipuncture / Unknown 06/04/2024 10:34 PM EDT 06/04/2024 10:39 PM EDT Shahnaz Scanlon MD CHEMISTRY ORDERABLES Performing Organization Address [facility] Co de Phone Number [facility] [place] [address] * POC, GLUCOSE (06/04/2024 7:43 PM EDT) Glucometer, POC 175 65 - 199 mg/dL 06/04/2024 7:[address] [facility] Comment:Supplemental ranges: <140 mg/dL before meals <180 mg/dL all other times of the day. Blood CAPILLARY BLOOD / Unknown 06/04/2024 7:43 PM EDT 06/04/2024 7:43 PM EDT Melida Valdes MD POINT OF CARE TEST O RDERABLES [facility] [place] [address] * Potassium (06/04/2024 4:35 PM EDT) Potassium 4.0 3.5 - 5.0 mMol/L 06/04/2024 5:[address] [facility] Blood VENOUS BLOOD SPECIMEN / Unknown Venipuncture / Unknown 06/04/2024 4:35 PM EDT 06/04/2024 4:40 PM EDT Shahnaz Scanlon MD CHEMISTRY ORDERABLES Performing Organization Address [facility] Co de Phone Number [facility] [place] [address] * POC, GLUCOSE (06/04/2024 3:26 PM EDT) Glucometer, POC 154 65 - 199 mg/dL 06/04/2024 3:[address] [facility] Comment:Supplemental ranges: <140 mg/dL before meals <180 mg/dL all other times of the day. Blood CAPILLARY BLOOD / Unknown 06/04/2024 3:26 PM EDT 06/04/2024 3:27 PM EDT Melida Valdes MD POINT OF CARE TEST O RDERABLES Performing Organization Address [facility] Co de Phone Number [facility] [place] [address] * POC, GLUCOSE (06/04/2024 11:09 AM EDT) Glucometer, POC 188 65 - 199 mg/dL 06/04/2024 11:[address] [facility] Comment:Supplemental ranges: <140 mg/dL before meals <180 mg/dL all other times of the day. Blood CAPILLARY BLOOD / Unknown 06/04/2024 11:09 AM EDT 06/04/2024 11:09 AM EDT Delroy Fofana MD POINT OF CARE TEST ORDERABLES Performing Organization Address [facility] Co de Phone Number [facility] [place] [address] * Heparin (unfractionated) Level (06/04/2024 10:41 AM [...] HEMATOLOGY ORDERABLE S [facility] [place] [address] * Potassium (06/04/2024 10:41 AM EDT) Pathologist [facility] Potassium 4.0 3.5 - 5.0 mMol/L 06/04/2024 11:[address] [facility] Blood VENOUS BLOOD SPECIMEN / Unknown Venipuncture / Unknown 06/04/2024 10:41 AM EDT 06/04/2024 10:46 AM EDT Shahnaz Scanlon MD CHEMISTRY ORDERABLES Performing Organization Address City/[facility]/ZIP Co de Phone Number [facility] [place] [address] * POC, GLUCOSE (06/04/2024 7:11 AM EDT) Glucometer, POC 182 65 - 199 mg/dL 06/04/2024 7:[address] [facility] Comment:Supplemental ranges: <140 mg/dL before meals <180 mg/dL all other times of the day. Blood CAPILLARY BLOOD / Unknown 06/04/2024 7:11 AM EDT 06/04/2024 7:12 AM EDT Delroy Fofana MD POINT OF CARE TEST ORDERABLES Performing Organization Address [facility] [place] Co de Phone Number [facility] [place] [address] * Heparin (unfractionated) Level (06/04/2024 4:38 AM [...] MD HEMATOLOGY ORDERABLE S Performing Organization Address [facility] [place]/ZIP Co de Phone Number [facility] [place] [address] * (ABNORMAL) CBC (with Diff) (06/04/2024 4:38 AM EDT) White Blood Cell 11.45(H) 4.00 - 9.50 x10(3)/mc L 06/04/2024 5:12 AM [facility] Red Blood Cell 5.35 4.58 - 5.54 x10(6)/mc L 06/04/2024 5:12 AM [facility] Hemoglobin 16.0 13.7 - 16.5 g/dL 06/04/2024 5:12 AM [facility] Hematocrit 49.6(H) 40.5 - 48.5 % 06/04/2024 5:12 AM [facility] Mean Cell Volume 92.7 82.9 - 93.1 fL 06/04/2024 5:12 AM [facility] Mean Cell Hemoglobin 29.9 27.5 - 32.1 pg 06/04/2024 5:12 AM [facility] Mean Cell Hemoglobin Concentration 32.3 32.0 - 35.7 g/dL 06/04/2024 5:12 AM [facility] Platelet 222 145 - 357 x10(3)/mc L 06/04/2024 5:12 AM [facility] Mean Platelet Volume 9.5 7.6 - 12.9 fL 06/04/2024 5:12 AM [facility] RDW Standard Deviation 47.6(H) 36.0 - 45.0 fL 06/04/2024 5:12 AM [facility] RDW coefficient of variation 14.1(H) 11.4 - 13.8 % 06/04/2024 5:12 AM [facility] NRBC% auto 0.0 % 06/04/2024 5:12 AM [facility] NRBC Absolute <0.01 <0.01 x10(3)/mc L 06/04/2024 5:12 AM [facility] Neutrophil % 60.3 % 06/04/2024 5:12 AM [facility] Neutrophil [...] HEMATOLOGY ORDERABLE S [facility] [place] [address] * Magnesium (06/04/2024 4:38 AM EDT) Magnesium 0.84 0.69 - 1.07 mMol/L 06/04/2024 5:[address] [facility] Blood VENOUS BLOOD SPECIMEN / Unknown Venipuncture / Unknown 06/04/2024 4:38 AM EDT 06/04/2024 5:07 AM EDT Shahnaz Scanlon MD CHEMISTRY ORDERABLES [facility] [place] [address] * (ABNORMAL) Basic Metabolic Panel (06/04/2024 4:38 AM EDT) Glucose 118 65 - 199 mg/dL 06/04/2024 5:[address] [facility] Comment:Glucose Concentratio n >=200 mg/dL plus symptoms is consistent with Diabetes Mellitus. Blood Urea Nitrogen 22(H) 10 - 20 mg/dL 06/04/2024 5:[address] [facility] Creatinine 1.22 0.80 - 1.50 mg/dL 06/04/2024 5:35 AM [facility] Sodium 137 135 - 145 mMol/L 06/04/2024 5:35 AM [facility] Potassium 3.6 3.5 - 5.0 mMol/L 06/04/2024 5:35 AM [facility] Chloride 97(L) 98 - 107 mMol/L 06/04/2024 5:[address] [facility] Carbon Dioxide 29 22 - 31 mMol/L 06/04/2024 5:[address] [facility] Anion Gap 11 5 - 15 mMol/L 06/04/2024 5:35 AM [facility] Calcium 9.0 8.5 - 10.5 mg/dL 06/04[facility] Est Glomerular Filtration Rate - Male 65 mL/min/1. 73 m?? 06/04/2024 5:35 [facility] Comment: This patient's estimated GFR [...] MD CHEMISTRY ORDERABLES [facility] [place] [address] * Heparin (unfractionated) Level (06/03/2024 8:58 PM [...] HEMATOLOGY ORDERABLE S [facility] [place] [address] * POC, GLUCOSE (06/03/2024 8:05 PM EDT) Glucometer, POC 136 65 - 199 mg/dL 06/03/2024 8:[address] [facility] Comment:Supplemental ranges: <140 mg/dL before meals <180 mg/dL all other times of the day. Blood CAPILLARY BLOOD / Unknown 06/03/2024 8:05 PM EDT 06/03/2024 8:05 PM EDT Delroy Fofana MD POINT OF CARE TEST ORDERABLES Performing Organization Address [facility] Co de Phone Number [facility] [place] [address] * POC, GLUCOSE (06/03/2024 5:48 PM EDT) Glucometer, POC 191 65 - 199 mg/dL 06/03/2024 5:[address] [facility] Comment:Supplemental ranges: <140 mg/dL before meals <180 mg/dL all other times of the day. Blood CAPILLARY BLOOD / Unknown 06/03/2024 5:48 PM EDT 06/03/2024 5:49 PM EDT Delroy Fofana MD POINT OF CARE TEST ORDERABLES Performing Organization Address City/[facility]/ZIP Co de Phone Number [facility] [place] [address] * CT Chest wo Contrast (Generic) (06/03/2024 4:33 PM EDT) WORKSTATION ID [id number] DH RAD Anatomical Region Laterality Modality Chest Computed Tomogra phy Impressions 06/03/2024 4:47 PM EDT Cardiomegaly. Biventricular ICD leads in place. Thank you for letting us participate in the care of this patient. ??If you are a health care provider and have any questions regarding this report, please contact the number below. ??For patients who have questions please contact the health care rep that requested your imaging first. ? Electronically signed by: Stuart Aponte MD, [facility] ??([phone]), at 06/03/2024 4:47 PM Narrative 06/03/2024 4:47 [...] who have questions please contactthe health care rep that requested your imaging first. Bobby Loja MD IMG CT ORDERABLES * Carotid Duplex, Bilateral (06/03/2024 2:19 PM EDT) VB Text Report Department: Vascular Surgery Lab Patient: [id number] (GEORGE MEHTA) CPT: 77206 Referring Physician: BOBBY LOJA ?? Phone: Indications: [...] Loja MD VASCULAR ORDERABLES Performing Organization Address [facility] de Phone Number [id number] * [...] MD HEMATOLOGY ORDERABLE S Performing Organization Address City/[facility] Co de Phone Number [facility] [place] [address] * POC, GLUCOSE (06/03/2024 11:14 AM EDT) Glucometer, POC 166 65 - 199 mg/dL 06/03/2024 11:[address] [facility] Comment:Supplemental ranges: <140 mg/dL before meals <180 mg/dL all other times of the day. Blood CAPILLARY BLOOD / Unknown 06/03/2024 11:14 AM EDT 06/03/2024 11:14 AM EDT Delroy Fofana MD POINT OF CARE TEST ORDERABLES [facility] [place] [address] * (ABNORMAL) Troponin-T, High Sensitivity 3 Hour [...] [facility] Test Catalog Troponin - https://[email or web address].org/catalogs/565/files/20610 Reference: Fourth [place] Definition of Myocardial Infarction. Journal of the [place] [employer] 2018;72:4525-0102 Troponin-T, HS 3 hr delta 06/03/2024 10:[address] [facility] Comment:Delta troponin value not calculated, sample collected outside of delta calculation time limit. Blood VENOUS BLOOD SPECIMEN / Unknown IP Care Team Draw / Unknown 06/03/2024 10:06 AM EDT 06/03/2024 10:15 AM EDT Delroy Fofana MD CHEMISTRY [facility] [place] [place] [address] * ECHO COMPLETE W CONTRAST (06/03/2024 8:46 AM EDT) Anatomical Region Laterality Modality Cardiac Other 06/03/2024 6:52 AM EDT Narrative 06/03/2024 10:32 AM EDT [address] [place] [address] ? Echocardiogram Report Name: GEORGE MEHTA Raad ?Study Date: 06/03/2024 06:52 AM : 1955 ? Height: 168 cm ? Account: [id number] Age: 69 yrs ? Weight: 102 kg [...] fellow performed study of today's date). Procedure Complete-68089. Image enhancement Optison was used for left [...] Note Jonnie Jordan MD - 06/03/2024 [address] [place] [address] Echocardiogram Report Name: GEORGE MEHTA Study Date: 406:52 AM : 1955 Height: 168 cm Account: [id number] Age: 69 yrs Weight: 102 kg Gender: [...] a fellow performed study of's date). Procedure Complete-83556. Image enhancement Optison was used for left [...] [facility] Test Catalog Troponin - [email or web address]/catalogs/565/files/20360 Reference: Fourth [place] Definition of Myocardial Infarction. Journal of the [place] [employer]iology 2018;72:5179-4233 Troponin-T, HS 1 hr delta 5 ng/L [...] CHEMISTRY ORDERABLE S [facility] [place] [address] * POC, GLUCOSE (06/03/2024 7:54 AM EDT) [facility] Signature Glucometer, POC 195 65 - 199 mg/dL 06/03/2024 7:[address] [facility] Comment:Supplemental ranges: <140 mg/dL before meals <180 mg/dL all other times of the day. Blood CAPILLARY BLOOD / Unknown 06/03/2024 7:54 AM EDT 06/03/2024 7:55 AM EDT Nuha Rojo MD POINT OF CARE TEST ORDERABLES [facility] [place] [address] * (ABNORMAL) Troponin-T, High Sensitivity (06/03/2024 7:39 AM EDT) Pathologist [facility] Troponin-T, High Sensitivity Initial 284(H) <=22 [...] [facility] Test Catalog Troponin - https://[email or web address].org/catalogs/565/files/20634 Reference: Fourth [place] Definition of Myocardial Infarction. Journal of the [place] College [employer] Cardiology 2018;72:8727-6763 Blood VENOUS BLOOD SPECIMEN / Unknown IP Care Team Draw / Unknown 06/03/2024 7:39 AM EDT 06/03/2024 7:48 AM EDT Delroy Fofana MD CHEMISTRY ORDERABLE S [facility] [place] [address] * (ABNORMAL) Troponin-T, High Sensitivity 3 Hour [...] [facility] Test Catalog Troponin - https://[email or web address].org/catalogs/565/files/67599 Reference: Fourth [place] Definition of Myocardial Infarction. Journal of the [place] College [employer]iology 2018;72:4791-3272 Troponin-T, HS 3 hr delta 46 ng/L [...] MD CHEMISTRY ORDERABLES [facility] [place] [address] * (ABNORMAL) Troponin-T, High Sensitivity 1 Hour [...] [facility] Test Catalog Troponin - https://[email or web address]-.testcatalog.org/catalogs/565/files/37660 Reference: Fourth [place] Definition of Myocardial Infarction. Journal of the [place] [employer]iology 2018;72:1924-9050 Troponin-T, HS 1 hr delta 10 ng/L [...] CHEMISTRY ORDERABLES [facility] [place] [address] * XR Chest One View (06/03/2024 2:41 AM EDT) WORKSTATION ID [id number] RAD Anatomical Region Laterality Modality Chest N/A Digital Radiogra phy Impressions 06/03/2024 3:06 AM EDT No radiographically evident acute cardiopulmonary process. Thank you for letting us participate in the care of this patient. ??If you are a health care provider and have any questions regarding this report, please contact the number below. ??For patients who have questions please contact the health care rep that requested your imaging first. ? Narrative [...] who have questions please contactthe health care rep that requested your imaging first. Shahnaz Scanlon [...] HEMATOLOGY ORDERABLE S [facility] [place] [address] * (ABNORMAL) Troponin-T, High Sensitivity (06/03/2024 2:13 [...] [facility] Test Catalog Troponin - https://[email or web address]/catalogs/565/files/23553 Reference: Fourth [place] Definition of Myocardial Infarction. Journal of the [place] College of Cardiology 2018;72:1083-3567 Blood VENOUS BLOOD SPECIMEN / Unknown IP Care Team Draw / Unknown 06/03/2024 2:13 AM EDT 06/03/2024 2:32 AM EDT Shahnaz Scanlon MD CHEMISTRY ORDERABLES Performing Organization Address City/[facility]/ZIP Co de Phone Number [facility] [place] [address] * Magnesium (06/03/2024 2:13 AM EDT) Magnesium 0.86 0.69 - 1.07 mMol/L 06/03/2024 3:[address] [facility] Blood VENOUS BLOOD SPECIMEN / Unknown IP Care Team Draw / Unknown 06/03/2024 2:13 AM EDT 06/03/2024 2:32 AM EDT Shahnaz Scanlon MD CHEMISTRY ORDERABLES [facility] [place] [address] * Basic Metabolic Panel (06/03/2024 2:13 AM EDT) Glucose 126 65 - 199 mg/dL 06/03/2024 3:[address] [facility] Comment:Glucose Concentratio n >=200 mg/dL plus symptoms is consistent with Diabetes Mellitus. Blood Urea Nitrogen 20 10 - 20 mg/dL 06/03/2024 3:[address] [facility] Creatinine 1.13 0.80 - 1.50 mg/dL 06/03/2024 3:02 AM [facility] Sodium 139 135 - 145 mMol/L 06/03/2024 3:02 AM [facility] Potassium 4.2 3.5 - 5.0 mMol/L 06/03/2024 3:02 AM [facility] Chloride 101 98 - 107 mMol/L 06/03/2024 3:02 AM [facility] Carbon Dioxide 26 22 - 31 mMol/L 06/03/2024 3:[facility] Anion Gap 12 5 - 15 mMol/L 06/03/2024 3:02 AM [facility] Calcium 9.8 8.5 - 10.5 mg/dL 06/03/2024 3:02 AM [facility] Est Glomerular Filtration Rate - Male 71 mL/min/1. 73 m?? 06/03/2024 3:02 [facility] Comment: This patient's estimated GFR [...] MD CHEMISTRY ORDERABLES [facility] [place] [address] * (ABNORMAL) CBC (with Diff) (06/03/2024 2:13 AM EDT) White Blood Cell 11.16(H) 4.00 - 9.50 x10(3)/mc L 06/03/2024 2:37 AM [facility] Red Blood Cell 5.09 4.58 - 5.54 x10(6)/mc L 06/03/2024 2:37 AM [facility] Hemoglobin 15.0 13.7 - 16.5 g/dL 06/03/2024 2:[address] [facility] Hematocrit 47.4 40.5 - 48.5 % 06/03/2024 2:37 AM [facility] Mean Cell Volume 93.1 82.9 - 93.1 fL 06/03/2024 2:37 AM [facility] Mean Cell Hemoglobin 29.5 27.5 - 32.1 pg 06/03/2024 2:37 AM [facility] Mean Cell Hemoglobin Concentration 31.6(L) 32.0 - 35.7 g/dL 06/03/2024 2:37 AM [facility] Platelet 217 145 - 357 x10(3)/mc L 06/03/2024 2:37 AM [facility] Mean Platelet Volume 9.5 7.6 - 12.9 fL 06/03/2024 2:37 AM [facility] RDW Standard Deviation 49.0(H) 36.0 - 45.0 fL 06/03/2024 2:37 AM [facility] RDW coefficient of variation 14.1(H) 11.4 - 13.8 % 06/03/2024 2:37 AM [facility] NRBC% auto 0.0 % 06/03/2024 2:37 AM [facility] NRBC Absolute <0.01 <0.01 x10(3)/mc L 06/03/2024 2:37 AM [facility] Neutrophil % 58.4 % 06/03/2024 2:37 AM [facility] Neutrophil Absolute (ANC) - Automated 6.51(H) 1.70 - 6.10 x10(3)/mc L 06/03/2024 2:37 AM [facility] Lymph % 29.9 % 06/03/2024 2:37 AM [facility] Lymph Absolute 3.34(H) 0.90 - 3.20 x10(3)/mc L 06/03/2024 2:37 AM [facility] Monocyte % 8.1 % 06/03/2024 2:37 AM [facility] Monocyte Absolute 0.90 0.30 - 0.90 x10(3)/mc L 06/03/2024 2:37 AM [facility] Eos % 2.4 % 06/03/2024 2:37 AM [facility] Eos Absolute 0.27 0.00 [...] HEMATOLOGY ORDERABLE S Performing Organization Address City/State/[facility] Co de Phone Number [facility] [place] [address] * Lipid Panel (Reflex Direct LDL) (06/03/2024 2:13 AM EDT) Cholesterol, Total 76 mg/dL 06/03/2024 3:02 AM [facility] Comment: Desirable: < [...] mg/dL LDL Cholesterol 21 mg/dL 3:02 AM [facility] Comment: Desirable: <100 [...] EDT 06/03/2024 2:32 AM EDT [facility] - 06/03/2024 3:02 AM EDT [...] Scanlon MD CHEMISTRY ORDERABLES Performing Organization Address [facility] de Phone Number [facility] [place] [address] * (ABNORMAL) APTT (06/03/2024 2:13 AM EDT) [...] MD HEMATOLOGY ORDERABLE S Performing Organization Address [facility] Co de Phone Number [facility] [place] [address] * Prothrombin Time (06/03/2024 2:13 AM EDT) [...] HEMATOLOGY ORDERABLE S [facility] [place] [address] * Hepatic Function Panel (06/03/2024 2:13 AM [...] Scanlon MD CHEMISTRY ORDERABLES Performing Organization Address City/[facility]/ZIP Co de Phone Number [facility] [place] [address] * (ABNORMAL) pro-Brain Natriuretic Peptide (06/03/2024 2:13 AM EDT) NT-proBNP 1,628(H) <=124 pg/mL 06/03/2024 4:[address] [facility] Blood VENOUS BLOOD SPECIMEN / Unknown IP Care Team Draw / Unknown 06/03/2024 2:13 AM EDT 06/03/2024 2:32 AM EDT Shahnaz Scanlon MD CHEMISTRY ORDERABLES Performing Organization Address [facility] Co de Phone Number [facility] [place] [address] * Phosphorus (06/03/2024 2:13 AM EDT) Phosphorus 4.4 2.5 - 4.5 mg/dL 06/03/2024 3:[address] [facility] Blood VENOUS BLOOD SPECIMEN / Unknown IP Care Team Draw / Unknown 06/03/2024 2:13 AM EDT 06/03/2024 2:32 AM EDT Shahnaz Scanlon MD CHEMISTRY ORDERABLES Performing Organization Address City/[facility]/ZIP Co de Phone Number [facility] [place] [address] * EKG 12 Lead (06/03/2024 1:45 AM EDT) Ventricular rate 63 BPM MUSE SYSTEM Atrial Rate 63 BPM MUSE SYSTEM P-R Interval 168 ms MUSE SYSTEM QRS Duration 96 ms MUSE SYSTEM Q-T Interval 400 ms MUSE SYSTEM QTC Calculated (Bezet) 409 ms MUSE SYSTEM Calculated P Solen 65 degrees MUSE SYSTEM Calculated R Solen 70 degrees MUSE SYSTEM Calculated T Solen -86 degrees MUSE SYSTEM INTERPRETATION Atrial-sensed ventricular-paced rhythm Abnormal ECG No previous ECGs available I personally reviewed the tracing and edited the fellows interpretation Confirmed by fellow Sunni Agudelo ([id number]) on 06/04/2024 3:55:40 PM Confirmed by MD [...] ? Procedure Date: 06/02/2024 ? A #: [id number] ? Primary Physician: Nuha Shen I ? Case #: [id number] ? File Name: [id number] ? Catheterization Order Number: [id number] ? [facility] ? Final Report [place], [place] ? Patient Name: ? George L. Tyson ? ID#: ?[id number] ? : ?1955 ? Procedure Date: ? [...] as ASA Class IV. The [facility] clinical frailty ?scale is 5: Mildly Frail. ? Diagnostic Tests: ?Electrocardiography: ? EKG was assessed by ECG. EKG was Abnormal. EKG showed ST Deviation ? >= 0.5 mm. ?Medications Prior to Procedure: ? Sacubitril and Valsartan, Aspirin, Beta Erik, Statin and ? Thrombolytic (any). ? Indications for Diagnostic Cath: ?The priority of the diagnostic procedure was Emergent. The indication for ?the radiographer cardiac catheterization visit is ACS less than or equal [...] and a 3.5 Fr Pyramid [facility] 20 Mhz using Manual ?pullback. ??Imaging was [...] and a 3.5 Fr Pyramid [facility] 20 Mhz using ?Manual pullback. ??Imaging was [...] George Mehta Procedure Date: 06/02/2024 A #: [id number] Primary Physician: Nuha Shen I Case #: [id number] File Name: [id number] Catheterization Order Number: [id number] [facility] FinalReport [place], [place] Patient Name: George Mehta ID#:[id number] :1955 Procedure Date: June 02, 2024 Case [...] as ASA Class IV. The [facility] clinicalfrailty scale is 5: Mildly Frail. Diagnostic Tests: Electrocardiography: EKG was assessed by ECG. EKG was Abnormal. EKG showed STDeviation >= 0.5 mm. Medications Prior to Procedure: Sacubitril and Valsartan, Aspirin, Beta Erik, Statin and Thrombolytic (any). Indications for Diagnostic Cath: The priority of the diagnostic procedure was Emergent. Theindication for the radiographer cardiac catheterization visit is ACS less than or equal [...] units of heparin were administered. A total [id number] of Omnipaque were opened, 84cc of Omnipaque were administered [id number] of Omnipaque were wasted. Radiation: Fluoro time [...] and a 3.5 Fr Pyramid [facility] 20 Mhz usingManual pullback. Imaging was successful. [...] and a 3.5 Fr Pyramid [facility] 20 Mhzusing Manual pullback. Imaging was successful. Indication: IVUS performed for pre intervention planning. Findings Pre-Intervention: scattered plaque, calcification and [id number] degrees calcification. Findings Post-Intervention: Stent not imaged [...] 06/04/2024 14:16 Report Last Ammended: 07/20/2024 15:36 Nhua Rojo MD CARDIAC CATH ORDERA BLES * [...] CARE TEST ORDERABLES Performing Organization Address City/State/[facility] Co de Phone Number [facility] [place] [phone] documented in this encounter Visit Diagnoses Not [...] 2100, Last dose on Fri06/23/24 at 0900, Log Loader Helper recommended duration is 3 days., Routine Given [...] 8:02 PM EST 2 tablets sodium chloride (Williamson) 0.65 % nasal spray 1 spray 1 [...] 2100, Last dose on Fri06/23/24 at 0900, Log Loader Helper recommended duration is 3 days., Routine 2043 [...] oral route first line., Routine sodium chloride (Williamson) 0.65 % nasal spray 1 spray 1 [...] 6 hours upon arrival to Unit. Give TX if unable to take PO, Routine Group [...] Routine documented in this encounter Care Teams Wool Dyer Relationship Specialty Start Date End Date Mauro Berumen MD [address] [place] [address] PCP - General Family Medicine 06/02/24 documented as of this encounter
--- OUTSIDE RECORDS SUMMARY | 2024-09-15 10:45 | XMS_ITS | Encounter Summary ---
Author Organization [facility] Address [facility] [place] [address] Care Team Providers Care Oil Pumper Name Role Phone Mauro Berumen MD Primary Care Provider [phone] Encounter Details Date Type Department Care Team (Late st Contact Info) Description 06/03/2024 Orders Only Cardiology [facility] [place] [phone] Unknown None Social History Tobacco Use Types Packs/Day Years Used Date Smoking Tobacco: Every Day Cigarettes Smokeless Tobacco: Never [facility] Utilities Answer Date Recorded In [...] any time in the past 12 m [facility], were you homeless or living in a skilled nursing (including now)? No 06/03/2024 IPV Inpatient Questions [...] 2:00 PM EST Office Visit Cardiology at [address] [phone] Moi Falcon MD [facility] [place] [address] documented as of this encounter Procedures Procedure Name Priority Date/Time Associated Diagnosis Comments ECHOCARDIOGRAM TRANSTHORACIC Routine 06/03/2024 2:23 AM EDT documented in this encounter Results * Echocardiogram Transthoracic (06/03/2024 2:23 AM EDT) Anatomical Region Laterality Modality Cardiac Other 06/03/2024 2:23 AM EDT Narrative 06/03/2024 10:32 AM EDT [address] [place] [address] ? Echocardiogram Report Name: ARTURO NICHOLS ?Study Date: 06/03/2024 02:23 AM : 1955 Age: 69 yrs Gender: Male Performed By: Sascha Silva MD Reason For Study: STEMI Interpreting Fellow: Sascha Silva. Interpretation Summary Limited echo performed by fellow hot iron worker to assess LV function. Left ventricle is mild to moderately dilated. Left ventricular ejection fraction is estimated visually at 25%. There is global dyskinesia with mid-basilar posterior-posterolateral akinesis. Right ventricle is not well seen. RV systolic function is probably normal. There is no prior echo for comparison. Procedure Limited - 73883. Suboptimal quality. Ventricular paced. Left Ventricle Left [...] Note Jonnie Jordan MD - 06/03/2024 [address] [place] [address] Echocardiogram Report Name: ARTURO NICHOLS Study Date: 06/03/2024 02:23AM : 1955 Age: 69 yrs Gender: Male Performed By: Sascha Silva MD Reason For Study: STEMI Interpreting Fellow: Sascha Silva. Interpretation Summary Limited echo performed by fellow hot iron worker to assess LV function. Left ventricle is mild to moderately dilated. Left ventricular ejectionfraction is estimated visually at 25%. There is global dyskinesia withmid-basilar posterior-posterolateral akinesis. Right ventricle is not well seen. RV systolic function is probablynormal. There is no prior echo for comparison. Procedure Limited - 32239. Suboptimal quality. Ventricular paced. Left Ventricle Left [...] on filedocumented in this encounter Care Teams Oil Pumper Relationship Specialty Start Date End Date Mauro Berumen MD [address] [place] [id number] PCP - General Family Medicine 06/02/24 documented as of this encounter
--- OUTSIDE RECORDS SUMMARY | 2024-09-15 10:45 | XMS_ITS | Encounter Summary ---
Author Organization [facility] Address [facility] [place] [address] Care Team Providers Care Director Of Partnerships Name Role Phone Mauro Berumen MD Primary Care Provider [phone] Encounter Details Date Type Department Care Team (Late st Contact Info) Description 06/08/2024 Ophth [place] [address] Yumiko De La Torre, COT Social History [...] PM EST Office Visit Cardiology at [address] [address] Moi Falcno MD [facility] [place] [address] documented as of this encounter Visit Diagnoses Not on filedocumented in this encounter Care Teams Director Of Partnerships Relationship Specialty Start Date End Date Mauro Berumen MD [address] [place] [address] PCP - General Family Medicine 06/02/24 documented as of this encounter
--- OUTSIDE RECORDS SUMMARY | 2024-09-15 10:47 | XMS_ITS | Continuity of Care Document ---
Author Organization [facility] Address [address] [place] [address] Assessment No assessment recorded. Plan of Treatment [...] 3 Active 06/[address], [place], [address], [facility] 5 13:15:27 Type 2 diabetes mellitus 40675135 Active [address], [place], [address], [facility] 4 16:23:15 Coronary arterioscle rosis 43243945 Active 2023 [place] x 3, with stents Pacer AICD LDL 34 04/[address], [place], [address], [facility] 5 12:00:46 Essential hypertensio n 67936292 Active [address], [place], [address], [facility] 4 23:10:54 Chronic left-sided congestive heart failure 0876908 Active 2023 ICD. last echo 31% 08/[address], [place], [address], [facility] 5 13:17:19 Malignant melanoma 992928344 Active 2016 left scalp MD [address], [place], [address], [facility] 4 14:10:50 Adult health examination Active [address], [place], [address], [facility] 4 11:43:13 Onychomycos is 026943301 Active 2023 toenails MD [address], [place], [address], [facility] 4 11:47:27 Neuropathy due to diabetes mellitus 728040373 Active [address], [place], [address], [facility] 4 16:23:51 Mixed anxiety and depressive disorder 959975906 Active [address], [place], [address], [facility] 4 16:27:39 Ambulatory continuous glucose monitoring of interstitia l tissue fluid Active [address], [place], [address], [facility] 4 23:10:45 Hearing loss 66371038 Active [address], [place], [address], [facility] 23:11:04 Notes:Some problems listed i n Document: #[id number] could not be added to this patient's [...] oral route as needed. 08/23 completed Per [facility] [place] [place] d/c 06/21/24 Not Available Not Available Not Available carvedilo l 12.5 mg tablet TAKE ONE TABLET BY MOUTH TWICE A DAY 08/23 completed Stopped per [facility] [place] [place] d/c summary 08/16/24 Not Available Not Available Not Available metoprolo l succinate ER 50 mg tablet,ex tended release 24 hr Take 1 tablet every day by oral route. active Per [facility] [place] [place] d/c summary 08/16/24 Not Available Not Available [...] pain times 3 then call 911. Per [facility] [place] [place] d/c summary 08/16/24 Not Available Not Available [...] hours by oral route. 08/17 completed Per [facility] [place] [place] d/c 06/21/24 Not Available Not Available Not Available Jardiance 25 mg tablet TAKE ONE TABLET BY MOUTH EVERY DAY 2024 active Not Available Not Available Not Avai lable Entresto 49 mg-51 mg tablet TAKE ONE [...] 5 167.64 cm 97.8 [degF] 34.1 kg/m2 69303.9 9 g 99 % 99 % 80 /min 88 mm[Hg] 56 mm[Hg] MELITON MANRIQUE CMA [facility] 5 11:43:21 Social History Question Answer Notes LastModified by Organizat ion Details LastModified Time Tobacco Smoking Status Former Smoker [facility]2024 11:37:56 Do You Have An [...] mL 4 completed MD [address], [place], [address], [facility] 08/30/2023 19:29:40 Tdap 4 completed MD [address], [place], [address], [facility] 12/01/2023 18:15:36 Influenza, high-dose, trivalent, PF 4 completed HANNAH DIMAS CMA null, [facility] 05/18/2024 11:35:26 COVID-19, mRNA, LNP-S, PF, jeferson-sucrose, 30 mcg/0.3 mL 4 completed HANNAH DIMAS CMA null, [facility] 05/18/2024 11:35:26 Pneumococcal conjugate PCV20, polysaccharide RRB036 conjugate, adjuvant, PF 3 completed JENNIFER SORENSEN MA null, [facility] 08/12/2023 15:42:12 influenza, unspecified formulation 3 completed JENNIFER SORENSEN MA null, [facility] 08/26/2023 11:13:50 Past Encounters Encounter ID Performer Location Encounter Start Date Encounter Closed Date Diagnosis/Indication Diagnosis SNOMED-CT Code Diagnosis ICD10 Code Diagnosis Note [id number] BEATRIS SANTOS MD [address] [address] 08/23/2024 11:30:16 08/23/2024 12:07:13 Coronary arteriosclerosis 56947613 I25.10 Post CABG, appears to doing well. No anginal symptoms, nothing to suggest CHF. Symptoms of orthostasi s have resolved since changing from carvedilol to metoprolol and now only as needed Lasix. Continue with cardiac rehab, on appropriat e preventive therapy otherwise. Still has follow-up visits with his cardiologi st Type 2 ericka betes mellitus 33339395 E11.9 Reeducativeena scott about proper use of [...] night for now. Has his regular follow-up appointmen t in about a month Chronic le ft-sided congestive heart failure 4400289 I50.1 Appears euvolemic, no changes. last echo 50% ejection fraction up from 35% post [facility] Concerns Section Related Observation LastModified by Organization Detai ls LastModified Time None Recorded Concern Status LastModified by Organization Details LastModified Time None Recorded Payers Encounter Date Sequence Insurance Name Policy Number Policy Suazo Covered Member ID Suazo Member ID Guarantor Name 08/23/2024 1 [id number]/A DVANTAGE - PPO) [id number] Arturo Mehta [id number] Arturo Mehta Notes Date Note Type [...] with blood pressure and heart rate monitoring. BEATRIS SANTOS MD [address], [place], [address], [facility] [[email or web address] - [facility]. 08/23/2024 16:49:55
--- OUTSIDE RECORDS SUMMARY | 2024-09-15 10:47 | XMS_ITS | Encounter Summary ---
Author Organization [facility] Address [facility] [place] [address] Care Team Providers Care Sales Representative Printing Paper Name Role Phone Mauro Berumen MD Primary Care Provider [phone] Encounter Details Date Type Department Care Team (Late st Contact Info) Description 06/02/2024 External Results Administration [facility] [place] [address] Social History Tobacco Use Types Packs/Day Years Used Date Smoking Tobacco: Never Assessed [facility] Utilities Answer Date Recorded In the past 12 months has th e electric, gas, oil, or water Managed Methods threatened to shut off services in your [...] in the past 12 m [facility], were you homeless or living in a [place] facility (including now)? No 06/03/2024 IPV Inpatient Questions [...] PM EST Office Visit Cardiology at [address] [address] Moi Falcon MD [facility] [place] [address] documented as of this encounter Procedures Procedure Name Priority Date/Time Associated Diagnosis Comments MISC EXTERNAL CARDIOLOGY RESULT Routine 06/02/2024 9:54 PM EDT documented in this encounter Results * External Cardiology Result (06/02/2024 9:54 PM EDT) Anatomical Region Laterality Modality Other Historical Provider EXTERNAL CARDIOLO GY RESULT documented in this encounter Visit Diagnoses Not on filedocumented in this encounter Care Teams Sales Representative Printing Paper Relationship Specialty Start Date End Date Mauro Berumen MD [address] [place] [address] PCP - General Family Medicine 06/02/24 documented as of this encounter
--- OUTSIDE RECORDS SUMMARY | 2024-09-15 10:47 | XMS_ITS | Encounter Summary ---
Author Organization [facility] Address [facility] [place] [address] Care Team Providers Care Instrument Inspector Name Role Phone Mauro Berumen MD Primary Care Provider [phone] Encounter Details Date Type Department Care Team (Late st Contact Info) Description 06/02/2024 Notes Only Cardiology [facility] [place] [address] Sascha Silva MD [facility] [place] [address] Social History Tobacco Use Types Packs/Day Years Used Date Smoking Tobacco: Never Assessed [facility] Utilities Answer Date Recorded In the past [...] any time in the past 12 m [facility], were you homeless or living in a [...] Data If Hospital to which patient presented= [facility]: ED Walk In 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 to r and d lab technician STEMI Alert called: Yes Credentialing Manager Activated by: Industrial Safety And Health Technician Initial Disposition: Admit Credentialing Manager documented in this encounter Plan of Treatment Upcoming Encounters Date Type Department Care Team (Late st Contact Info) Description 09/29/2024 2:00 PM EST Office Visit Cardiology at [address] [address] Moi Falcon MD [facility] [place] [address] documented as of this encounter Visit Diagnoses Not on filedocumented in this encounter Care Teams Instrument Inspector Relationship Specialty Start Date End Date Mauro Berumen MD [address] [place] [address] PCP - General Family Medicine 06/02/24 documented as of this encounter
--- OUTSIDE RECORDS SUMMARY | 2024-09-15 10:47 | XMS_ITS | Encounter Summary ---
Author Organization [facility] Address [address] [place] [address] Care Team Providers Care Hotel Dining Room Cashier Name Role Phone Jesu Guerra [facility] Primary Care Provider [phone] Encounter Details Date Type Department Care Team (Late st Contact Info) Description 10/31/2023 Lab Requisition [facility] - [facility] [address] [place] [address] Yousif Carlin PA [address] [place] [address] [address] [place] [id number] Melanocytic nevi, unspecified Social History Tobacco Use [...] management options, if applicable. 11/04/2023 9:43 EDT [facility] Final Diagnosis A. SKIN OF CHEEK, LEFT, SHAVE BIOPSY: - Seborrheic keratosis, pigmented. 11/04/2023 9:43 EDT [facility] Attestation By the signature below, the attending physician certifies that they have 1) personally conducted a gross and/or microscopic examination of the described specimen(s), and/or personally interpreted the results of laboratory testing of the described specimen(s), and 2) personally rendered or confirmed the above diagnosis. 11/04/2023 9:43 [facility] at 0943 Microscopic [...] dermis and patchy lichenoid inflammation. 11/04/2023 9:43 [facility] Clinical History Atypical nevus, history melanoma; clinical diagnosis code: D22.9 11/04/2023 9:43 [facility] Gross Description A. Received in formalin labelled with proper patient identification (initials K, K) and L cheek is a 1.3 x 1.0 x 0.1 cm irregular shave of mottled rodriguez white to dark brown skin. The margin is inked. The specimen is trisected and entirely submitted in A1. HENOK GOLDEN(ASC) 11/03/2023 9:00 11/04/2023 9:43 [facility] Performing Lab [facility] 11/04/2023 9:43 [facility] Scanned Images 11/04/2023 9:43 T [facility] Tissue SPECIMEN FROM SKIN / Unknown 10/31/2023 14:10 EDT 10/31/2023 23:24 EDT us Yousif WHITING PATHOLOGY ORDERABLES Final Result [facility] [address] [place] [address] documented in this encounter Visit Diagnoses Diagnosis Melanocytic nevi, unspecified documented in this encounter Care Teams Hotel Dining Room Cashier Relationship Specialty Start Date End Date Jesu Guerra, DNP [address] [place] [address] PCP - General Family Medicine - Primary Care 10/03/23 documented as of this encounter
--- OUTSIDE RECORDS SUMMARY | 2024-09-15 10:47 | XMS_ITS | Referral Summary ---
Author Organization [facility] Address [address] [place] [address] Care Team Providers Care Fisher Gill Net Name Role Phone Jesu Guerra [facility] Primary Care Provider [phone] Social History Tobacco Use Types Packs/Day Years Used Date Smoking Tobacco: Never Assessed Sex and Gender Information Value Date Recorded Sex Assigned at Not on file Legal Sex Male 23:22 EDT Gender Identity Not on file Sexual Orientation Not on file Plan of Treatment Not on file Insurance [employer]ARE Care Teams Fisher Gill Net Relationship Specialty Start Date End Date Jesu Guerra, DNP [facility] [place] [address] PCP - General Family Medicine - Primary Care 10/03/23
--- OUTSIDE RECORDS SUMMARY | 2024-09-15 10:47 | XMS_ITS | Clinical Summary ---
Author Organization [facility] Address [address] [place] [address] Care Team Providers Care Knitting Teacher Name Role Phone Jesu Guerra [facility] Primary Care Provider [phone] Social History Tobacco Use Types Packs/Day Years [...] 2032 Insurance [employer] MED[employer] Care Teams Knitting Teacher Relationship Specialty Start Date End Date Jesu Guerra, D[place] [address] PCP - General Family Medicine - Primary Care 10/03/23
--- OUTSIDE RECORDS SUMMARY | 2024-09-15 10:47 | XMS_ITS | Encounter Summary ---
Author Organization Formerly [facility] [place] [address] Care Team Providers Care Router Tender Name Role Phone Mauro Berumen MD Primary Care Provider [phone] Reason for Visit * Auth/Cert Specialty Diagnoses / Procedures Referred By Carroll lopez Referred To Contact Diagnoses STEMI (ST elevation myocardial infarction) STEMI Procedures CARDIAC CATHETERIZATION EMERGENCY Delroy Monterroso MD [facility] [place] [address] [facility] Referral ID Status Reason Start Date Expiration Date Visits Re quested Visits Authorized [id number] 1 1 Encounter Details Date Type Department Care Team (Late st Contact Info) Description 06/02/2024 11:00 PM EDT - 06/03/2024 12:18 AM [place] [address] Nuha Shen MD [facility] [place] [address] CARDIAC CATHETERIZATION Social History Tobacco Use Types Packs/Day Years Used Date Smoking Tobacco: Every Day Cigarettes Smokeless Tobacco: Never Tobacco Cessation:Ready to Q uit: No; Counseling Given: Yes [facility] Utilities Answer Date Recorded In the past 12 months has [employer], gas, oil, or water [employer] threatened to shut off services in your [...] Patient Age: 69 y.o. Birthdate: 1955 Language: Kuwaiti Race: Choose not to Disclose Ethnicity: Not nor Admit Date: 06/02/2024 Discharge Date: 06/21/2024 Attending Physician: Bobby Loja MD Follow-up Recommendations for Providers: Please continue routine management of cardiovascular risk factors including blood pressure, lipids,glucose, etc. Please note any changes to medications. Patient to follow up with PCP, Mauro Berumen MD, in 1-2 weeks. Patient to follow up with [employer] C[employer], Kristen Cardenas in 2-3 weeks. Patient to follow up with Cardiac Surgeon, Dr. Bobby Loja, in 4 wks. Inpatient Provider Contact Information: [facility] Section of Cardiac Surgery [facility] [place] [address] FAX [phone] Discharge Diagnoses (Hospital Problems) Primary Diagnoses: STEMI [...] (WRVU 33.75) performed by Bobby Loja MD [facility] OR PRO CABG, ARTERY-VEIN, TWO N/A 06/14/2024 @CABG, TWO VENOUS GRAFTS & ARTERIAL GRAFT (WRVU 7.93) performed by Bobby Loja MD at [facility] OR PRO ENDOSCOPY W/VIDEO-ASST VEIN HARVEST, CABG N/A 06/14/2024 ENDOSCOPIC HARVEST VEIN(S) FOR CABG (WRVU 0.31) performed by Bobby Loja MD at [facility] MAIN OR PRO EXC MEDIASTINAL TUMOR N/A 06/14/2024 @EXCISION OF MEDIASTINAL TUMOR (WRVU 19.55) performed by Bobby Loja MD at [facility] OR PRO INSERT INTRA-AORTIC BALLOON ASST DEVICE PERCUTANEOUS N/A 06/13/2024 @INSERTION OF IABP,PERCUTANEOUS (WRVU 4.84) performed by Nuha Shen MD at [facility] CATH LABS PRO UNLISTED CARDIAC SURG PROCEDURE N/A 06/14/2024 EXPLORATION AND OVERSEW ATRIAL APPENDAGE (WRVU 5.94) performed by Bobby Loja MD at [facility] [place] Prior To Admission Medications Medications [...] y.o. male with a PMHx of previous WI s/p PCI x3, ICM/HFrEF (LVEF 30%) s/p ICD, DMII, HTN, HLD, remote melanoma, and smoker who presented to [facility] last night via EMS after developing acute, severe chest pain while watching TV. Patient was ruled in for STEMI, given TNK, ASA, plavix, heparin gtt, and sent to [facility] for coronary angiography. 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 on 06/02/2024 via the CardiologyService with an anterior STEMI after receiving lytics at OSH. He was brought to the laborer carpentry dock which showed severely calcified left coronary system with notable LCx 75/80% lesions and DELIVERY AND MAIL SORTER OM1 with ISR with collateral retrograde filling, [...] juice or regular (not diet) soda 6 [employer] small box of raisins 4 glucose tablets [...] 2 tablespoons of dried fruit. Milk and yp-addve-mtfiw yogurt have 15 grams of carbs in a serving. A serving is 1 cup of milk or 3/4 cup (6 oz) of un-saihn-dhjgd yogurt. Starchy vegetables have 15 grams of carbs in a serving. A serving is ?? cup of mashed potatoes or sweet potato; 1 cup winter squash; ?? of a small baked potato; ?? cup of cooked beans; or ?? cup cooked corn or green peas. Learn how much carbs to eat each day and at each meal. A dietitian or nca certified concierge can teach you how to keep track [...] Bobby Loja and/or the Cardiac Surgery Physician Wastewater Project Engineer Team may be reached at . [...] Dr. Bobby Loja. You may use a [place] Track or treadmill but avoid any pulling [...] friends, go to a movie, go to jew, etc. Heavy activities: No hunting, skiing, jogging, snow shoveling, snowmobiling, lawn mowing, swimming,golf or tennis until after your return appointment with the surgeon. Do not ride motorcycles, [email or web address]'stractors or horses. Avoid the use of a [...] should resume a low fat, low cholesterol, [place] Heart Association Diet/Diabetic diet. Driving: No driving [...] while being managed by your PCP and/or [employer]. For future medication refills, please refer to your PCP and/or [employer] after your discharge from our service. Thank you REMOVE CHEST TUBE SUTURES ON OR AFTER 06/24/2024 Home oxygen therapy: N/A Follow up appointments: You should follow up with your PCP, Mauro Berumen MD, in 1-2 weeks. You should follow up with your [employer], Dr CARDENAS. You have an appointment with your Cardiac Surgeon, Dr. Bobby Loja, in 4 wks. Cardiac Rehabilitation: George Mehta was seen today regarding participation in the outpatient Phase [address] [facility]. The patient agrees to a referral to this program. The referral will be sent at discharge and the patient should be contacted by the program within 1-2 weeks from discharge. Future Appointments and Orders Future Orders Complete By Expires Referral to Cardiac Rehab [[id number] Custom] As directed Process Instructions: If no progress note charted, please enter Clinical details in comments. Scheduling Instructions: Questions: My question or request is: s/p CABG- cardiac rehab at [facility] Referral to Home Health [REF34 Custom] As directed Process Instructions: If no progress note charted, please enter Clinical details in comments. Scheduling Instructions: Comments: Please evaluate George Mehta for admission to Home Health. [address] [facility] [address] (home) Date of : 1955 Inpatient DOCUMENTATION FOR VNA SERVICES (INCLUDING THOSE PATIENTS WITH MEDICARE COVERAGE REQUIRINGHOME VNA SERVICES AND/OR HOSPICE SERVICES) PATIENT'S LOCATION: George Mehta [address] [place] [address] [address] [facility] [address] (home) Telephone Information: Talent Acquisition Program Manager's Name: self In discussion with the attending physician, it is certified that this patient is under their care and that they, or a Nurse Practitioner, or Physician Wastewater Project Engineer who is working directly with them, [...] for services as follows: HOME HEALTH AGENCY: [facility] [address] [place] [phone] RN orders: Cardiopulmonary assessment, incisional assessment, assess [...] issues please call the Cardiology Office at [phone] FOR MEDICARE ONLY: (please delete this section [...] [facility] Section of Cardiac Surgery [facility] [place] [address] FAX [phone] Date: 06/21/2024 CC: MD Antonino Tinajero Joshua R, PA [address] [place] [address] [place] [address] documented in this encounter Discharge Instructions * [...] 2 tablespoons of dried fruit. Milk and jj-nsjzd-drleg yogurt have 15 grams of carbs in a serving. A serving is 1 cup of milk or 3/4 cup (6 oz) of oi-wsblb-ddupu yogurt. Starchy vegetables have 15 grams of carbs in a serving. A serving is ?? cup of mashed potatoes or sweet potato; 1 cup winter squash; ?? of a small baked potato; ?? cup of cooked beans; or ?? cup cooked corn or green peas. Learn how much carbs to eat each day and at each meal. A dietitian or nca certified concierge can teach you how to keep track [...] Bobby Loja and/or the Cardiac Surgery Physician Wastewater Project Engineer Team may be reached at . [...] Dr. Bobby Loja. You may use a Oak[place] Track or treadmill but avoid any pulling [...] friends, go to a movie, go to jew, etc. Heavy activities: No hunting, skiing, jogging, snow shoveling, snowmobiling, lawn mowing, swimming,golf or tennis until after your return appointment with the surgeon. Do not ride motorcycles, [employer]com'stractors or horses. Avoid the use of a [...] should resume a low fat, low cholesterol, German Heart Association Diet/Diabetic diet. Driving: No driving [...] while being managed by your PCP and/or [employer]. For future medication refills, please refer to your PCP and/or [employer] after your discharge from our service. Thank you REMOVE CHEST TUBE SUTURES ON OR AFTER 06/24/2024 Home oxygen therapy: N/A Follow up appointments: You should follow up with your PCP, Mauro Berumen MD, in 1-2 weeks. You should follow up with your [employer], Dr CARDENAS. You have an appointment with your Cardiac Surgeon, Dr. Bobby Loja, in 4 wks. Cardiac Rehabilitation: George Mehta was seen today regarding participation in the outpatient Phase [address] [facility]. The patient agrees to a referral [...] or weekly) [] Other * Alejandra Baumann, MASONRY TEACHER - 06/21/2024 7:05 AM EST Follow Up [...] MARIALUISA clipping. PMH of chronic HFrEF s/p CHILDCARE WORKER/ICD, IDDM2, HTN, HLD, remote melanoma, active [...] 2 tablespoons of dried fruit. Milk and qk-yhuqw-ssjmi yogurt have 15 grams of carbs in a serving. A serving is 1 cup of milk or 3/4 cup (6 oz) of ys-mrdqf-rrlom yogurt. Starchy vegetables have 15 grams of carbs in a serving. A serving is ?? cup of mashed potatoes or sweet potato; 1 cup winter squash; ?? of a small baked potato; ?? cup of cooked beans; or ?? cup cooked corn or green peas. Learn how much carbs to eat each day and at each meal. A dietitian or nca certified concierge can teach you how to keep track [...] [facility] [place] [facility] Pager [phone] Weekends please page [phone] * Eric Packer PA - 06/20/2024 7:44 AM EST Cardiac Surgery Progress Note George Mehta is a 69 y.o. male with a history of CAD s/p multiple PCI who presented with an anterior STEMI and was given lytics. Cath showed MV CAD without culprit vessel. He is now 6 Days Post-OpCABGx3 and MARIALUISA clipping. 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 #IDDM2 DM team following Lantus, SSI Carb controlled diet #Active smoker Duoneb prn Dispo: Floor, full code, home when ready Discussed with attending surgeon on rounds this morning. 06/20/2024 Between the hours of 1800 - 0600 and on the weekends please page [phone]. * Alejandra Baumann, MASONRY TEACHER - 06/20/2024 7:21 AM EST Follow Up Diabetes Consult Patient Interview Blood glucose values and insulin use reviewed. dry kiln operator BG to 59 despite decrease in [...] MARIALUISA clipping. PMH of chronic HFrEF s/p CHILDCARE WORKER/ICD, IDDM2, HTN, HLD, remote melanoma, active smoker. 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 Milk and hx-ysbvy-sweep yogurt have 15 grams of carbs in a serving. A serving is 1 cup of milk or 3/4 cup (6 oz) of ub-ytuhx-qiylj yogurt. Starchy vegetables have 15 grams of carbs in a serving. A serving is ?? cup of mashed potatoes or sweet potato; 1 cup winter squash; ?? of a small baked potato; ?? cup of cooked beans; or ?? cup cooked corn or green peas. Learn how much carbs to eat each day and at each meal. A dietitian or nca certified concierge can teach you how to keep track [...] MARIALUISA clipping. 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 Tx to floor #IDDM2 DM team following pre-op Lantus, SSI Carb controlled diet #Active smoker Duoneb prn Dispo: Floor status, full code Discussed with attending surgeon on rounds this morning. Jeffy Hood MD 06/19/2024 Between the hours of 1800 - 0600 and on the weekends please page [phone]. * Alejandra Baumann, MASONRY TEACHER - 06/19/2024 7:09 AM EST Follow Up Diabetes Consult Patient Interview Blood glucose values and insulin use reviewed. Jardiance added back yesterday, biofuels engineering manager low BGto 51. Glargine reduced to 45 [...] MARIALUISA clipping. PMH of chronic HFrEF s/p CHILDCARE WORKER/ICD, IDDM2, HTN, HLD, remote melanoma, active smoker. Jardiance added back yesterday. dry kiln operator low BG to 51. Glargine reduced [...] 2 tablespoons of dried fruit. Milk and eh-iajdp-abbuc yogurt have 15 grams of carbs in a serving. A serving is 1 cup of milk or 3/4 cup (6 oz) of go-dpwfv-jxvju yogurt. Starchy vegetables have 15 grams of carbs in a serving. A serving is ?? cup of mashed potatoes or sweet potato; 1 cup winter squash; ?? of a small baked potato; ?? cup of cooked beans; or ?? cup cooked corn or green peas. Learn how much carbs to eat each day and at each meal. A dietitian or nca certified concierge can teach you how to keep track [...] [facility] [place] Pager [phone] Weekends please page [phone] * Hilda Resendez, SOLDERING MACHINE FEEDER - 06/18/2024 9:19 AM EST Physical Therapy Note 2 Patient profile: George Mehta is a 69 y.o. male with a history of CAD s/p multiple PCI who presented with an anterior STEMI and was given lytics. Cath showed MV CAD without culprit vessel. He is now 1 Day Post-Op CABGx3 and MARIALUISA clipping. PMH of chronic HFrEF s/p CHILDCARE WORKER/ICD, IDDM2, HTN, HLD, remote melanoma, active smoker. Interval History: Per last cardiac surgery note on 06/18/2024 Cr improved 1.4 on lasix 40 iv bid -1.5L, made 2.5L urine Coreg, entresto restarted Floor status Social History: Pt lives with his in a 1 level apartment with no steps to enter. 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 He drives. He sleeps [...] least restrictive device Time IN / OUT: 2553-6056 Total Time: 11 minutes; TEF 1 Hilda Resendez PTA Pager: [phone] Physical Therapy Inpatient Rehabilitation Department * Keila [...] MARIALUISA clipping. 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, will get name for f/up appt Tx to floor #IDDM2 DM team following pre-op Lantus, SSI Carb controlled diet ? Restarting jardiance #Active smoker Duoneb prn Dispo: CVCC, Full code, tx to floor Discussed with attending surgeon on rounds this morning. KEILA HANLEY, JOSÉ ANTONIO 06/18/2024 Between the hours of 1800 - 0600 and on the weekends please page [phone]. * Alejandra Baumann, MASONRY TEACHER - 06/17/2024 3:29 PM EST Follow Up [...] MARIALUISA clipping. PMH of chronic HFrEF s/p CHILDCARE WORKER/ICD, IDDM2, HTN, HLD, remote melanoma, active [...] [facility] [place] Pager [phone] Weekends please page [phone] 35 minutes were spent over the course [...] MARIALUISA clipping. PMH of chronic HFrEF s/p CHILDCARE WORKER/ICD, IDDM2, HTN, HLD, remote melanoma, active [...] 0600 and on the weekends please page [phone]. * Raymond Carlton MD - 06/16/2024 1:11 PM EST CARDIAC CRITICAL CARE ATTENDING STAFF PROGRESS NOTE Patient seen and examined. George Mehta is a 69 y.o. male with: Active Hospital Problems Diagnosis STEMI (ST elevation myocardial infarction) Cardiac resynchronization therapy defibrillator (CHILDCARE WORKER-D) - Medtronic Amplia Cardiomyopathy, ischemic Acute on chronic heart failure with reduced ejection fraction (HFrEF, <= 40%) Coronary artery disease involving shungnak coronary artery of shungnak heart without angina pectoris Type 2 diabetes [...] encouragement provided Patient screened for f/u and racebook writer met pt at bedside. Pt states [...] unless consulted in the interim. RICHA Simmons Product Safety Coordinator * Octaviano Horvath PA - 06/16/2024 8:07 AM EST Cardiac Surgery Progress Note George Mehta is a 69 y.o. male with a history of CAD s/p multiple PCI who presented with an anterior STEMI and was given lytics. Cath showed MV CAD without culprit vessel. He is now 2 Days Post-OpCABGx3 and MARIALUISA clipping. PMH of chronic HFrEF s/p CHILDCARE WORKER/ICD, IDDM2, HTN, HLD, remote melanoma, active [...] 0600 and on the weekends please page [phone]. * Jono Fernandez, PT - 06/15/2024 4:09 PM EST Physical Therapy Evaluation Patient profile: George Mehta is a 69 y.o. male with a history of CAD s/p multiple PCI who presented with an anterior STEMI and was given lytics. Cath showed MV CAD without culprit vessel. He is now 1 Day Post-Op CABGx3 and MARIALUISA clipping. PMH of chronic HFrEF s/p CHILDCARE WORKER/ICD, IDDM2, HTN, HLD, remote melanoma, active smoker. 24h Events: From OR on Dobutamine IABP removed Bedrest ended ~2100, sedation weaned Extubated ~0200 Dobutamine weaned to 1 this morning, CI 2.6, shut off and repeat CI 2.4 Social History: Pt lives with his in a 1 level apartment with no steps to enter. 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 He drives. He sleeps [...] outlined inthis evaluation. JONO FERNANDEZ, PT Pager: [phone] Physical Therapy Inpatient Rehabilitation Department Time IN / OUT: 1087-7880 Total Time: 33 (eval) minutes * Alejandra Baumann APRN - 06/15/2024 11:39 AM EST Follow Up Diabetes Consult Patient Interview Blood glucose values and insulin use reviewed. Pt remains on an insulin drip today following [id number] MARIALUISA clipping. George continues to complain of [...] MARIALUISA clipping. PMH of chronic HFrEF s/p CHILDCARE WORKER/ICD, IDDM2, HTN, HLD, remote melanoma, active [...] [facility] [place] Pager [phone] Weekends please page [phone] 50 minutes were spent over the course [...] elevation myocardial infarction) Cardiac resynchronization therapy defibrillator (CHILDCARE WORKER-D) - Medtronic Amplia Cardiomyopathy, ischemic Acute on chronic heart failure with reduced ejection fraction (HFrEF, <= 40%) Coronary artery disease involving shungnak coronary artery of shungnak heart without angina pectoris Type 2 diabetes [...] with h/o DM, CAD with prior PCI, CHILDCARE WORKER-D who presented with crushing chest pain, [...] MARIALUISA clipping. PMH of chronic HFrEF s/p CHILDCARE WORKER/ICD, IDDM2, HTN, HLD, remote melanoma, active [...] sternotomy dressing CDI, saphenectomy dressing CDi Tubes/Lines/Drains: War, RIJ, A-line, Mediastinal marcos and bilateral pleural [...] 0600 and on the weekends please page [phone]. * Yoli Donaldson, [facility] - 06/15/2024 5:35 AM EST [...] with h/o DM, CAD with prior PCI, CHILDCARE WORKER-D who presented with crushing chest pain, [...] 1.5 PTT 31 T/L/D Barr ETT CVL [place] [facility] Pacing wires ASSESSMENT, MANAGEMENT, and DECISION MAKIN y.o. male with h/o DM, CAD with prior PCI, CHILDCARE WORKER-D who presented with crushing chest pain, [...] 0600 and on the weekends please page [phone]. * Chloé Cortez - 06/14/2024 9:36 AM [...] unless consulted in the interim. Chloé Cortez Machine Builder * Jim Benites MD - 06/13/2024 1:15 [...] - Mildly dilated left ventricle size with zftobdjy-op-mtpsgobs decreased LV systolic function. LV ejection fraction [...] ACS/crushing chest pain, likely due to lateral WI, found to have surgical CAD with viability [...] elevation myocardial infarction) Cardiac resynchronization therapy defibrillator (CHILDCARE WORKER-D) - Medtronic Amplia Cardiomyopathy, ischemic Acute on chronic heart failure with reduced ejection fraction (HFrEF, <= 40%) Coronary artery disease involving shungnak coronary artery of shungnak heart without angina pectoris Type 2 diabetes [...] PCP: Mauro Berumen MD PCP phone number: [phone] Date of Admission: 06/02/2024 ( Hospital Day 10 days ) Attending:Ethel Carrillo MD ID: 69 y.o. male with a h/o DM type 2, HTN, HLD, current smoker (2-3 cigarettes/day), HFrEF with anICD for low EF (~30%), and CAD with prior [place] x3 with JENNA placed in [place], Melanoma, PAD, presented to [facility] with 1 hour of retrosternal CP (05/13) while watching TV, found to have STEMI. Active Problems: Active Hospital Problems Diagnosis STEMI (ST elevation myocardial infarction) Cardiac resynchronization therapy defibrillator (CHILDCARE WORKER-D) - Medtronic Amplia Cardiomyopathy, ischemic Acute on chronic heart failure with reduced ejection fraction (HFrEF, <= 40%) Coronary artery disease involving shungnak coronary artery of shungnak heart without angina pectoris Type 2 diabetes [...] in the last 7068 hours. Invalid input(s): [id number] Recent Labs 06/12/24 0425 06/11/24 2356 06/11/24 2025 06/11/24 1624 06/11/24 1108 06/11/24 0748 06/11/24 0357 06/11/24 0050 06/10/24 1922 06/10/24 1735 06/10/24 1125 06/10/24 0746 POCGLU 132 135 210* 81 233* 184 132 144 236* 123 216* 206* Heme No results for input(s): LDH, HAPTOGLOBIN, URICACID in the last 168 hours. ABG (Arterial Blood Gas) No results found for: PHART, PO2ART, OCV9ICJ, KAH8ZYT Microbiology: Microbiology Results (Last 30 days) No results found for the last 720 hours. Imaging: Results for orders placed or performed during the hospital encounter of 06/02/24 XR Chest One View (Exam End: 06/03/2024 2:41 AM) Result Value WORKSTATION ID [id number] Impression No radiographically evident acute cardiopulmonary process. Thank you for letting us participate in the care of this patient. If you are a health care provider and have any questions regarding this report, please contact the number below. For patients who have questions please contact the health cardiac care unit nurse that requested your imaging first. Electronically signed by: Corazon Mauro MD, [facility] ([phone]), at 06/03/2024 3:06 AM MRI Cardiac Morphology Function wwo Contrast (Exam End: 06/07/2024 1:10 PM) Result Value WORKSTATION ID [id number] Impression - Findings consistent with an ischemic [...] - Mildly dilated left ventricle size with luolbsgi-uf-nfccfulw decreased LV systolic function. LV ejection fraction [...] who have questions please contact the health cardiac care unit nurse that requested your imaging first. Electronically signed by: Kriss Alonzo MD, [facility] ([phone]), at 06/07/2024 2:[address] Chest wo Contrast (Generic) (Exam End: 06/03/2024 4:33 PM) Result Value WORKSTATION ID [id number] Impression Cardiomegaly. Biventricular ICD leads in place. Thank you for letting us participate in the care of this patient. If you are a health care provider and have any questions regarding this report, please contact the number below. For patients who have questions please contact the health cardiac care unit nurse that requested your imaging first. Electronically signed by: Stuart Aponte MD, [facility] ([phone]), at 06/03/2024 4:47 PM XR Chest PA & Lateral (Generic) (Exam End: 06/07/2024 7:03 AM) Result Value WORKSTATION ID [id number] Impression Biventricular ICD leads intact and in [...] who have questions please contact the health cardiac care unit nurse that requested your imaging first. Electronically signed by: Stuart Aponte MD, [facility] ([phone]), at 06/07/2024 10:45 AM TTE: Limited echo performed by fellow chemical production engineer to assess LV function. Left ventricle [...] ischemic cardiomyopathy with HFrEF (~30% EF), prior WI with stents, DM type 2, HTN, HLD, active smoker, presented with anterior STEMI. Angiography revealed severe multivessel CAD with extensive calcification and YUE 3 flow in all vessels, without a clear culprit lesion. Currently pain-free after TNK, Plavix, ASA, and heparin, with mildly elevated LVEDP at 40 mmHg and mild volume overload. 06/12/24: Patient stable, asymptomatic. Plan to go to laborer carpentry dock for balloon pump tomorrow, then willgo to [...] CODE Dain Colón MD Cardiology, M1-S2, Pager #[phone] 06/12/24 Associated attestation - Ethel Carrillo MD [...] of two midnights or is on the [facility] inpatient only procedure list (status C) due to: acute myocardial infarction requiring titration of IV medication and fluid monitoring and decompensated congestive heart failure requiring IV medication and fluid monitoring Ethel Carrillo MD Cardiovascular Medicine Personal Pager [phone] 06/12/2024 9:12 PM * Alejandra Baumann, MASONRY TEACHER - 06/11/2024 4:21 PM EST Images from [...] too aggressive, suggest ICR 1:6 (rule of [id number] = 6.25). George is up and walking [...] ischemic cardiomyopathy with HFrEF (~30% EF), prior WI with stents, DM type 2, HTN, HLD, [...] [facility] [place] Diabetes Management Pager [phone] Weekends please page [phone] 35 minutes were spent over the course [...] PCP: Mauro Berumen MD PCP phone number: [phone] Date of Admission: 06/02/2024 ( Hospital Day 9 days ) Attending:Melida Valdes MD ID: 69 y.o. male with a h/o DM type 2, HTN, HLD, current smoker (2-3 cigarettes/day), HFrEF with anICD for low EF (~30%), and CAD with prior WI x3 with JENNA placed in [place], Melanoma, PAD, presented to [facility] with 1 hour of retrosternal CP (05/13) while watching TV, found to have STEMI. Active Problems: Active Hospital Problems Diagnosis STEMI (ST elevation myocardial infarction) Cardiac resynchronization therapy defibrillator (CHILDCARE WORKER-D) - Medtronic Amplia Cardiomyopathy, ischemic Acute on chronic heart failure with reduced ejection fraction (HFrEF, <= 40%) Coronary artery disease involving shungnak coronary artery of shungnak heart without angina pectoris Type 2 diabetes [...] in the last 7068 hours. Invalid input(s): [id number] Recent Labs 06/11/24 0357 06/11/24 0050 06/10/24 1922 06/10/24 1735 06/10/24 1125 06/10/24 0746 06/10/24 0423 06/10/24 0005 06/09/24 2036 06/09/24 1727 06/09/24 1152 06/09/24 0810 POCGLU 132 144 236* 123 216* 206* 154 125 197 174 211* 209* Heme No results for input(s): LDH, HAPTOGLOBIN, URICACID in the last 168 hours. ABG (Arterial Blood Gas) No results found for: PHART, PO2ART, GIT3JJS, BGQ1PMQ Microbiology: Microbiology Results (Last 30 days) No results found for the last 720 hours. Imaging: Results for orders placed or performed during the hospital encounter of 06/02/24 XR Chest One View (Exam End: 06/03/2024 2:41 AM) Result Value WORKSTATION ID [id number] Impression No radiographically evident acute cardiopulmonary process. Thank you for letting us participate in the care of this patient. If you are a health care provider and have any questions regarding this report, please contact the number below. For patients who have questions please contact the health cardiac care unit nurse that requested your imaging first. Electronically signed by: Corazon Mauro MD, [facility] ([phone]), at 06/03/2024 3:06 AM MRI Cardiac Morphology Function wwo Contrast (Exam End: 06/07/2024 1:10 PM) Result Value WORKSTATION ID [id number] Impression - Findings consistent with an ischemic [...] - Mildly dilated left ventricle size with njybndal-fy-yxmfjapo decreased LV systolic function. LV ejection fraction [...] who have questions please contact the health cardiac care unit nurse that requested your imaging first. Electronically signed by: Kriss Alonzo MD, [facility] ([phone]), at 06/07/2024 2:[address] Chest wo Contrast (Generic) (Exam End: 06/03/2024 4:33 PM) Result Value WORKSTATION ID [id number] Impression Cardiomegaly. Biventricular ICD leads in place. Thank you for letting us participate in the care of this patient. If you are a health care provider and have any questions regarding this report, please contact the number below. For patients who have questions please contact the health cardiac care unit nurse that requested your imaging first. Electronically signed by: Stuart Aponte MD, [facility] ([phone]), at 06/03/2024 4:47 PM XR Chest PA & Lateral (Generic) (Exam End: 06/07/2024 7:03 AM) Result Value WORKSTATION ID [id number] Impression Biventricular ICD leads intact and in [...] who have questions please contact the health cardiac care unit nurse that requested your imaging first. Electronically signed by: Stuart Aponte MD, [facility] ([phone]), at 06/07/2024 10:45 AM TTE: Limited echo performed by fellow chemical production engineer to assess LV function. Left ventricle [...] ischemic cardiomyopathy with HFrEF (~30% EF), prior WI with stents, DM type 2, HTN, HLD, [...] on placing this weekend and transfer to [facility], likely Friday. #ASCVD / STEMI: -Holding Plavix; [...] CODE Dain Colón MD Cardiology, M1-S2, Pager #[phone] 06/11/24 Associated attestation - Ethel Carrillo MD [...] of two midnights or is on the [facility] inpatient only procedure list (status C) due to: acute myocardial infarction requiring titration of IV medication and fluid monitoring and decompensated congestive heart failure requiring IV medication and fluid monitoring Ethel Carrillo MD Cardiovascular Medicine Personal Pager [phone] 06/11/2024 9:35 PM * Hilary Belle 06/10/2024 12:39 PM EST Nutrition Services Note George Mehta is a 69 y.o. male Reason for intervention: hospital day 9 Nutrition Plan: Continue diet order: 60/60/75 CHO Level 2 Encourage good PO Lasix and Insulin noted Monitor weight Patient scheduled for a hospital day 9 nutrition evaluation. Risk Intern attempted to meet with pt at bedside [...] unless consulted in the interim. Hilary Belle Product Safety Coordinator * Mariia Montero RN - 06/10/2024 12:23 PM EST I have met with the patient to: discuss discharge planning needs. provide the [facility], Office of Care Management letter from the Developmental Writing Instructor pertaining to rehab referrals. provide a letter describing our affiliations within the [facility] and educate about their right to choose where referrals are sent. provide a list of Home Health Agencies / Durable Medical Equipment vendors which serve their preferred geographic area. provided patient with [facility] Star Quality Rating handout. They have requested referrals to: [facility]. [address] [place] [id number] RN / PT Anticipated d/c date: 06/20/24 Note routed to a Equal Opportunity Representative who will communicate referrals to facilities and provide any required information. * Dain Colón MD - 06/10/2024 7:17 AM EST Images from the original note were not included. . Cardiology Progress Note Patient info: Name: George Mehta : 1955 PCP: Mauro Berumen MD PCP phone number: [phone] Date of Admission: 06/02/2024 ( Hospital Day 8 days ) Attending:Melida Valdes MD ID: 69 y.o. male with a h/o DM type 2, HTN, HLD, current smoker (2-3 cigarettes/day), HFrEF with anICD for low EF (~30%), and CAD with prior WI x3 with JENNA placed in [place], Melanoma, PAD, presented to [facility] with 1 hour of retrosternal CP (05/13) while watching TV, found to have STEMI. Active Problems: Active Hospital Problems Diagnosis STEMI (ST elevation myocardial infarction) Cardiac resynchronization therapy defibrillator (CHILDCARE WORKER-D) - Medtronic Amplia Cardiomyopathy, ischemic Acute on chronic heart failure with reduced ejection fraction (HFrEF, <= 40%) Coronary artery disease involving shungnak coronary artery of shungnak heart without angina pectoris Type 2 diabetes [...] in the last 7068 hours. Invalid input(s): [id number] Recent Labs 06/10/24 0423 06/10/24 0005 06/09/24 2036 06/09/24 1727 06/09/24 1152 06/09/24 0810 06/09/24 0440 06/09/24 0034 06/08/24 2027 06/08/24 1616 06/08/24 1235 06/08/24 0810 POCGLU 154 125 197 174 211* 209* 131 186 176 159 226* 190 Heme No results for input(s): LDH, HAPTOGLOBIN, URICACID in the last 168 hours. ABG (Arterial Blood Gas) No results found for: PHART, PO2ART, ZFF5PSH, NIV9IMH Microbiology: Microbiology Results (Last 30 days) No results found for the last 720 hours. Imaging: Results for orders placed or performed during the hospital encounter of 06/02/24 XR Chest One View (Exam End: 06/03/2024 2:41 AM) Result Value WORKSTATION ID [id number] Impression No radiographically evident acute cardiopulmonary process. Thank you for letting us participate in the care of this patient. If you are a health care provider and have any questions regarding this report, please contact the number below. For patients who have questions please contact the health cardiac care unit nurse that requested your imaging first. Electronically signed by: Corazon Mauro MD, [facility] ([phone]), at 06/03/2024 3:06 AM MRI Cardiac Morphology Function wwo Contrast (Exam End: 06/07/2024 1:10 PM) Result Value WORKSTATION ID [id number] Impression - Findings consistent with an ischemic [...] - Mildly dilated left ventricle size with bdnlfyzh-ny-ftijkxhx decreased LV systolic function. LV ejection fraction [...] who have questions please contact the health cardiac care unit nurse that requested your imaging first. Electronically signed by: Kriss Alonzo MD, [facility] ([phone]), at 06/07/2024 2:[address] Chest wo Contrast (Generic) (Exam End: 06/03/2024 4:33 PM) Result Value WORKSTATION ID [id number] Impression Cardiomegaly. Biventricular ICD leads in place. Thank you for letting us participate in the care of this patient. If you are a health care provider and have any questions regarding this report, please contact the number below. For patients who have questions please contact the health cardiac care unit nurse that requested your imaging first. Electronically signed by: Stuart Aponte MD, [facility] ([phone]), at 06/03/2024 4:47 PM XR Chest PA & Lateral (Generic) (Exam End: 06/07/2024 7:03 AM) Result Value WORKSTATION ID [id number] Impression Biventricular ICD leads intact and in [...] who have questions please contact the health cardiac care unit nurse that requested your imaging first. Electronically signed by: Stuatr Aponte MD, [facility] ([phone]), at 06/07/2024 10:45 AM TTE: Limited echo performed by fellow chemical production engineer to assess LV function. Left ventricle [...] ischemic cardiomyopathy with HFrEF (~30% EF), prior WI with stents, DM type 2, HTN, HLD, [...] CODE Dain Colón MD Cardiology, M1-S2, Pager #[phone] 06/10/24 Associated attestation - Melida Valdes MD [...] a lytic and brought directly to the [facility]. Cardiac catheterization demonstrated multivessel disease with severe [...] who is agreeable Melida Valdes MD Staff Setter Molding And Coremaking Machines * Cherelle Fregoso, JOSÉ ANTONIO - 06/09/2024 [...] ischemic cardiomyopathy with HFrEF (~30% EF), prior WI with stents, DM type 2, HTN, HLD, [...] PCP: Mauro Berumen MD PCP phone number: [phone] Date of Admission: 06/02/2024 ( Hospital Day 7 days ) Attending:Melida Valdes MD ID: 69 y.o. male with a h/o DM type 2, HTN, HLD, current smoker (2-3 cigarettes/day), HFrEF with anICD for low EF (~30%), and CAD with prior WI x3 with JENNA placed in [place], Melanoma, PAD, presented to [facility] with 1 hour of retrosternal CP (05/13) while watching TV, found to have STEMI. Active Problems: Active Hospital Problems Diagnosis STEMI (ST elevation myocardial infarction) Acute on chronic heart failure with reduced ejection fraction (HFrEF, <= 40%) Coronary artery disease involving shungnak coronary artery of shungnak heart without angina pectoris Type 2 diabetes [...] in the last 7068 hours. Invalid input(s): [id number] Recent Labs 06/09/24 0440 06/09/24 0034 06/08/24202606/08/24 1616 06/08/24 1235 06/08/24 0810 06/08/24 0409 06/07/24 2357 06/07/24 2005 06/07/24 1631 06/07/24 1105 06/07/24 1103 POCGLU 131 186 176 159 226* 190 151 188 118 174 221* 250* Heme No results for input(s): LDH, HAPTOGLOBIN, URICACID in the last 168 hours. ABG (Arterial Blood Gas) No results found for: PHART, PO2ART, YXU7NIT, WZY2QHX Microbiology: Microbiology Results (Last 30 days) No results found for the last 720 hours. Imaging: Results for orders placed or performed during the hospital encounter of 06/02/24 XR Chest One View (Exam End: 06/03/2024 2:41 AM) Result Value WORKSTATION ID [id number] Impression No radiographically evident acute cardiopulmonary process. Thank you for letting us participate in the care of this patient. If you are a health care provider and have any questions regarding this report, please contact the number below. For patients who have questions please contact the health cardiac care unit nurse that requested your imaging first. Electronically signed by: Corazon Mauro MD, [facility] ([phone]), at 06/03/2024 3:06 AM MRI Cardiac Morphology Function wwo Contrast (Exam End: 06/07/2024 1:10 PM) Result Value WORKSTATION ID [id number] Impression - Findings consistent with an ischemic [...] - Mildly dilated left ventricle size with jgdbmrxl-jb-grxscvzc decreased LV systolic function. LV ejection fraction [...] who have questions please contact the health cardiac care unit nurse that requested your imaging first. Electronically signed by: Kriss Alonzo MD, [facility] ([phone]), at 06/07/2024 2:[address] Chest wo Contrast (Generic) (Exam End: 06/03/2024 4:33 PM) Result Value WORKSTATION ID [id number] Impression Cardiomegaly. Biventricular ICD leads in place. Thank you for letting us participate in the care of this patient. If you are a health care provider and have any questions regarding this report, please contact the number below. For patients who have questions please contact the health cardiac care unit nurse that requested your imaging first. Electronically signed by: Stuart pAonte MD, [facility] ([phone]), at 06/03/2024 4:47 PM XR Chest PA & Lateral (Generic) (Exam End: 06/07/2024 7:03 AM) Result Value WORKSTATION ID [id number] Impression Biventricular ICD leads intact and in [...] who have questions please contact the health cardiac care unit nurse that requested your imaging first. Electronically signed by: Stuart Aponte MD, [facility] ([phone]), at 06/07/2024 10:45 AM TTE: Limited echo performed by fellow chemical production engineer to assess LV function. Left ventricle [...] Infusions: heparin (porcine) infusion 1,400 Units/hr (06/08/24 4182) PRN Meds:.glucose 40% oral geL OR dextrose [...] ischemic cardiomyopathy with HFrEF (~30% EF), prior WI with stents, DM type 2, HTN, HLD, [...] CODE Dain Colón MD Cardiology, M1-S2, Pager #[phone] 06/09/24 Associated attestation - Melida Valdes MD [...] a lytic and brought directly to the [facility]. Cardiac catheterization demonstrated multivessel disease with severe [...] with balloon pump insertion low EF. Melida Valeds MD Staff Setter Molding And [employer]aking Machines * Alejandra Baumann, MASONRY TEACHER - 06/08/2024 4:10 PM EST Images from [...] ischemic cardiomyopathy with HFrEF (~30% EF), prior WI with stents, DM type 2, HTN, HLD, [...] [facility] Diabetes Management Pager [phone] Weekends please page [phone] 35 minutes were spent over the course [...] PCP: Mauro Berumen MD PCP phone number: [phone] Date of Admission: 06/02/2024 ( Hospital Day 6 days ) Attending:Melida Valdes MD ID: 69 y.o. male with a h/o DM type 2, HTN, HLD, current smoker (2-3 cigarettes/day), HFrEF with anICD for low EF (~30%), and CAD with prior WI x3 with JENNA placed in [place], Melanoma, PAD, presented to [facility] with 1 hour of retrosternal CP (05/13) while watching TV, found to have STEMI. Active Problems: Active Hospital Problems Diagnosis STEMI (ST elevation myocardial infarction) Acute on chronic heart failure with reduced ejection fraction (HFrEF, <= 40%) Coronary artery disease involving shung[place] coronary artery of shungnak heart without angina pectoris Type 2 diabetes [...] in the last 7068 hours. Invalid input(s): [id number] Recent Labs 06/08/24 0409 06/07/24 2357 06/07/24 2005 06/07/24 1631 06/07/24 1105 06/07/24 1103 06/07/24 0745 06/07/24 0425 06/07/24 0008 06/06/24 2018 06/06/24 1539 06/06/24 1339 POCGLU 151 188 118 174 221* 250* 175 127 182 143 147 317* Heme No results for input(s): LDH, HAPTOGLOBIN, URICACID in the last 168 hours. ABG (Arterial Blood Gas) No results found for: PHART, PO2ART, HVA8UQB, CGG2EQP Microbiology: Microbiology Results (Last 30 days) No results found for the last 720 hours. Imaging: Results for orders placed or performed during the hospital encounter of 06/02/24 XR Chest One View (Exam End: 06/03/2024 2:41 AM) Result Value WORKSTATION ID [id number] Impression No radiographically evident acute cardiopulmonary process. Thank you for letting us participate in the care of this patient. If you are a health care provider and have any questions regarding this report, please contact the number below. For patients who have questions please contact the health cardiac care unit nurse that requested your imaging first. Electronically signed by: Corazon Mauro MD, [facility] ([phone]), at 06/03/2024 3:06 AM MRI Cardiac Morphology Function wwo Contrast (Exam End: 06/07/2024 1:10 PM) Result Value WORKSTATION ID [id number] Impression - Findings consistent with an ischemic [...] - Mildly dilated left ventricle size with sxqufwve-br-mlynerhi decreased LV systolic function. LV ejection fraction [...] who have questions please contact the health cardiac care unit nurse that requested your imaging first. Electronically signed by: Kriss Alonzo MD, [facility] ([phone]), at 06/07/2024 2:[address] Chest wo Contrast (Generic) (Exam End: 06/03/2024 4:33 PM) Result Value WORKSTATION ID [id number] Impression Cardiomegaly. Biventricular ICD leads in place. Thank you for letting us participate in the care of this patient. If you are a health care provider and have any questions regarding this report, please contact the number below. For patients who have questions please contact the health cardiac care unit nurse that requested your imaging first. Electronically signed by: Stuart Aponte MD, [facility] ([phone]), at 06/03/2024 4:47 PM XR Chest PA & Lateral (Generic) (Exam End: 06/07/2024 7:03 AM) Result Value WORKSTATION ID [id number] Impression Biventricular ICD leads intact and in [...] who have questions please contact the health cardiac care unit nurse that requested your imaging first. Electronically signed by: Stuart Aponte MD, [facility] ([phone]), at 06/07/2024 10:45 AM TTE: Limited echo performed by fellow chemical production engineer to assess LV function. Left ventricle [...] ischemic cardiomyopathy with HFrEF (~30% EF), prior WI with stents, DM type 2, HTN, HLD, [...] CODE Dain Colón MD Cardiology, M1-S2, Pager #[phone] 06/08/24 Associated attestation - Melida Valdes MD [...] a lytic and brought directly to the [facility]. Cardiac catheterization demonstrated multivessel disease with severe [...] Otherwise clinically stable Melida Valdes MD Staff Setter Molding [employer] C[employer]aking [employer]ines * Ross Manuel PA - 06/07/2024 12:00 PM EST Cardiac Electrophysiology CIED Interrogation/Programming Note Asked by MRI staff to evaluate and program Medtronic CHILDCARE WORKER-D to allow for MR imaging. Patient Active Problem List Diagnosis ','STEMI (ST elevation myocardial infarction) Acute on chronic heart failure with reduced ejection fraction (HFrEF, <= 40%) Coronary artery disease involving shungnak coronary artery of sh[place]nak heart without angina pectoris Type 2 diabetes mellitus Device Data: Medtronic Amplia MRI Quad CHILDCARE WORKER-D [id number] #[id number] 06/16/2019 RA Medtronic 4076 CapSureFix Novus [id number] 06/16/2019 RV Medtronic [id number] [id number] 06/16/2019 LV Medtronic 4298 Attain Performa MRI [id number] 06/16/2019 DDD @ 50/130/130 Adaptive Bi-V and LV VF >188bpm ATP, 35j x6 FVT >188-222bpm burst 2, 35jx5 VT Battery longevity: 2.5yrs; charge time 4s P wave: 2.3mV R wave: >20.0mV Atrial impedance: 458 ohms RV impedance: 646 ohms LV impedance: 722 ohms Atrial threshold: 0.5V @ 0.4ms RV threshold: LV threshold: 1.75V @ 0.4ms AP 0.2% CONCESSION ATTENDANT 97.7% AT/AF 0% Impression and Plan: 1. Interrogated device to determine suitability for MRI 2. Programmed to MRI safe mode - VOO @ 70 3. Scan performed 4. Programming restored to baseline settings 5. Reinterrogated to verify appropriate function and settings 6. Device follow up as previously scheduled Provider: HENOK Meyer EP Consult attending physician: Libby Barton MD EP Consult positional pager #[phone](EPMD) EP Device interrogation positional pager # [phone] * Dain Colón MD - 06/07/2024 7:09 AM EST Images from the original note were not included. . Cardiology Progress Note Patient info: Name: George Mehta : 1955 PCP: Mauro Berumen MD PCP phone number: [phone] Date of Admission: 06/02/2024 ( Hospital Day 5 days ) Attending:Melida Valdes MD ID: 69 y.o. male with a h/o DM type 2, HTN, HLD, current smoker (2-3 cigarettes/day), HFrEF with anICD for low EF (~30%), and CAD with prior WI x3 with JENNA placed in [place], Melanoma, PAD, presented to [facility] with 1 hour of retrosternal CP (05/13) while watching TV, found to have STEMI. Active Problems: Active Hospital Problems Diagnosis STEMI (ST elevation myocardial infarction) Acute on chronic heart failure with reduced ejection fraction (HFrEF, <= 40%) Coronary artery disease involving shung[place] coronary artery of shungnak heart without angina pectoris Type 2 diabetes [...] in the last 7068 hours. Invalid input(s): [id number] Recent Labs 06/07/24 0425 06/07/24 0008 06/06/24 2018 06/06/24 1539 06/06/24 1339 06/06/24 1134 06/06/24 0757 06/06/24 0653 06/05/24 2231 06/05/24 1622 06/05/24 1134 06/05/24 0727 POCGLU 127 182 143 147 317* 264* 195 187 238* 205* 211* 166 Heme No results for input(s): LDH, HAPTOGLOBIN, URICACID in the last 168 hours. ABG (Arterial Blood Gas) No results found for: PHART, PO2ART, REO9XAH, WSK7ILQ Microbiology: Microbiology Results (Last 30 days) No results found for the last 720 hours. Imaging: Results for orders placed or performed during the hospital encounter of 06/02/24 XR Chest One View (Exam End: 06/03/2024 2:41 AM) Result Value WORKSTATION ID [id number] Impression No radiographically evident acute cardiopulmonary process. Thank you for letting us participate in the care of this patient. If you are a health care provider and have any questions regarding this report, please contact the number below. For patients who have questions please contact the health cardiac care unit nurse that requested your imaging first. Chest wo Contrast (Generic) (Exam End: 06/03/2024 4:33 PM) Result Value WORKSTATION ID [id number] Impression Cardiomegaly. Biventricular ICD leads in place. Thank you for letting us participate in the care of this patient. If you are a health care provider and have any questions regarding this report, please contact the number below. For patients who have questions please contact the health cardiac care unit nurse that requested your imaging first. Electronically signed by: Stuart Aponte MD, [facility] ([phone]), at 06/03/2024 4:47 PM TTE: Limited echo performed by fellow chemical production engineer to assess LV function. Left ventricle [...] ischemic cardiomyopathy with HFrEF (~30% EF), prior WI with stents, DM type 2, HTN, HLD, [...] Dain Colón MD (PGY-1) Cardiology, M1-S2, Pager #[phone] 06/07/24 Associated attestation - Melida Valdes MD [...] a lytic and brought directly to the [facility]. Cardiac catheterization demonstrated multivessel disease with severe [...] for further guidance. Melida Valdes MD Staff Setter Molding And Coremaking Machines * Dain Colón MD - 06/06/2024 7:17 AM EST Images from the original note were not included. . Cardiology Progress Note Patient info: Name: George Mehta : 1955 PCP: Mauro Berumen MD PCP phone number: [phone] Date of Admission: 06/02/2024 ( Hospital Day 4 days ) Attending:Melida Valdes MD ID: 69 y.o. male with a h/o DM type 2, HTN, HLD, current smoker (2-3 cigarettes/day), HFrEF with anICD for low EF (~30%), and CAD with prior WI x3 with JENNA placed in [place], Melanoma, PAD, presented to [facility] with 1 hour of retrosternal CP (05/13) while watching TV, found to have STEMI. Active Problems: Active Hospital Problems Diagnosis STEMI (ST elevation myocardial infarction) Acute on chronic heart failure with reduced ejection fraction (HFrEF, <= 40%) Coronary artery disease involving [place] coronary artery of [place] heart without angina pectoris Type 2 diabetes [...] in the last 7068 hours. Invalid input(s): [id number] Recent Labs 06/06/24 0653 06/05/24 2231 06/05/24 1622 06/05/24 1134 06/05/24 0727 06/04/24 1943 06/04/24 1526 06/04/24 1109 06/04/24 0711 06/03/24 2005 06/03/24 1748 06/03/24 1114 POCGLU 187 238* 205* 211* 166 175 154 188 182 136 191 166 Heme No results for input(s): LDH, HAPTOGLOBIN, URICACID in the last 168 hours. ABG (Arterial Blood Gas) No results found for: PHART, PO2ART, JHD3LGM, VJW7XDD Microbiology: Microbiology Results (Last 30 days) No results found for the last 720 hours. Imaging: Results for orders placed or performed during the hospital encounter of 06/02/24 XR Chest One View (Exam End: 06/03/2024 2:41 AM) Result Value WORKSTATION ID [id number] Impression No radiographically evident acute cardiopulmonary process. Thank you for letting us participate in the care of this patient. If you are a health care provider and have any questions regarding this report, please contact the number below. For patients who have questions please contact the health cardiac care unit nurse that requested your imaging first. Electronically signed by: Corazon Mauro MD, [facility] ([phone]), at 06/03/2024 3:[address] Chest wo Contrast (Generic) (Exam End: 06/03/2024 4:33 PM) Result Value WORKSTATION ID [id number] Impression Cardiomegaly. Biventricular ICD leads in place. Thank you for letting us participate in the care of this patient. If you are a health care provider and have any questions regarding this report, please contact the number below. For patients who have questions please contact the health cardiac care unit nurse that requested your imaging first. : Limited echo performed by fellow chemical production engineer to assess LV function. Left ventricle [...] ischemic cardiomyopathy with HFrEF (~30% EF), prior WI with stents, DM type 2, HTN, HLD, [...] Dain Colón MD (PGY-1) Cardiology, M1-S2, Pager #[phone] 06/06/24 Associated attestation - Melida Valdes MD [...] a lytic and brought directly to the [facility]. Cardiac catheterization demonstrated multivessel disease with severe [...] management. Help appreciated Melida Valdes MD Staff Setter Molding And [employer]aking Machines * Frederick Dunn MD - 06/05/2024 8:13 AM EDT Images from the original note were not included. . Cardiology Progress Note Patient info: Name: George Mehta : 1955 PCP: Mauro Berumen MD PCP phone number: [phone] Date of Admission: 06/02/2024 ( Hospital Day 3 days ) Attending:Melida Valdes MD ID: 69 y.o. male with a h/o DM type 2, HTN, HLD, current smoker (2-3 cigarettes/day), HFrEF with anICD for low EF (~30%), and CAD with prior WI x3 with JENNA placed in [place], Melanoma, PAD, presented to [facility] with 1 hour of retrosternal CP [...] in the last 7068 hours. Invalid input(s): [id number] Recent Labs 06/05/24 1134 06/05/24 0727 06/04/24 1943 06/04/24 1526 06/04/24 1109 06/04/24 0711 06/03/24 2005 06/03/24 1748 06/03/24 1114 06/03/24 0754 06/02/24 2331 POCGLU 211* 166 175 154 188 182 136 191 166 195 156 Heme No results for input(s): LDH, HAPTOGLOBIN, URICACID in the last 168 hours. ABG (Arterial Blood Gas) No results found for: PHART, PO2ART, ZOK3XED, AIA3NON Microbiology: Microbiology Results (Last 30 days) No results found for the last 720 hours. Imaging: Results for orders placed or performed during the hospital encounter of 06/02/24 XR Chest One View (Exam End: 06/03/2024 2:41 AM) Result Value WORKSTATION ID [id number] Impression No radiographically evident acute cardiopulmonary process. Thank you for letting us participate in the care of this patient. If you are a health care provider and have any questions regarding this report, please contact the number below. For patients who have questions please contact the health cardiac care unit nurse that requested your imaging first. Electronically signed by: Corazon Mauro MD, [facility] ([phone]), at 06/03/2024 3:[address] Chest wo Contrast (Generic) (Exam End: 06/03/2024 4:33 PM) Result Value WORKSTATION ID [id number] Impression Cardiomegaly. Biventricular ICD leads in place. Thank you for letting us participate in the care of this patient. If you are a health care provider and have any questions regarding this report, please contact the number below. For patients who have questions please contact the health cardiac care unit nurse that requested your imaging first. Electronically signed by: Stuart Aponte MD, [facility] ([phone]), at 06/03/2024 4:47 PM TTE: Limited echo performed by fellow chemical production engineer to assess LV function. Left ventricle [...] ischemic cardiomyopathy with HFrEF (~30% EF), prior WI with stents, DM type 2, HTN, HLD, [...] all the information they need regarding the CHILDCARE WORKER-D.Plan for MRI tomorrow. Starting 40 mg [...] a lytic and brought directly to the [facility]. Cardiac catheterization demonstrated multivessel disease with severe [...] maintenance of 40. Melida Valdes MD Staff Setter Molding And Coremaking Machines * Migel Javier RN - 06/05/2024 6:21 AM EDT Implanted device record scanned into: Chart Review-->Media-->External Cardiology-->03/25/2024. Medtronic Amplia MRI Quad CRTD [id number] Serial #: [id number] DDD mode A + Bi/V Rates 50-130 Migel Javier RN * Dain Colón MD - 06/04/2024 11:16 AM EDT Implant Records Requested Type: CHILDCARE WORKER-D Automotive Hardware Engineer: [employer] Product: [id number] Amplia MRI MRI compatibility: Compatible for 1.5-3 T Model #: [id number] Placed at: [place], [place] Records requested for MRI: 1. Operative report 2. Implant log I requested that these records be sent to our MRI department, Dain Colón MD 06/04/24 11:58 AM * Dain Colón MD - 06/04/2024 6:57 AM EDT Images from the original note were not included. . Cardiology Progress Note Patient info: Name: George Mehta : 1955 PCP: Mauro Berumen MD PCP phone number: [phone] Date of Admission: 06/02/2024 ( Hospital Day 2 days ) Attending:Delroy Fofana MD ID: 69 y.o. male with a h/o DM type 2, HTN, HLD, current smoker (2-3 cigarettes/day), HFrEF with anICD for low EF (~30%), and CAD with prior WI x3 with JENNA placed in [place], Melanoma, PAD, presented to [facility] with 1 hour of retrosternal CP [...] in the last 7068 hours. Invalid input(s): [id number] Recent Labs 06/03/24 2005 06/03/24 1748 06/03/24 1114 06/03/24 0754 06/02/24 2331 POCGLU 136 191 166 195 156 Heme No results for input(s): LDH, HAPTOGLOBIN, URICACID in the last 168 hours. ABG (Arterial Blood Gas) No results found for: PHART, PO2ART, XKJ5VSD, QGU0DAB Microbiology: Microbiology Results (Last 30 days) No results found for the last 720 hours. Imaging: Results for orders placed or performed during the hospital encounter of 06/02/24 XR Chest One View (Exam End: 06/03/2024 2:41 AM) Result Value WORKSTATION ID [id number] Impression No radiographically evident acute cardiopulmonary process. Thank you for letting us participate in the care of this patient. If you are a health care provider and have any questions regarding this report, please contact the number below. For patients who have questions please contact the health cardiac care unit nurse that requested your imaging first. Electronically signed by: Corazon Mauro MD, [facility] ([phone]), at 06/03/2024 3:[address] Chest wo Contrast (Generic) (Exam End: 06/03/2024 4:33 PM) Result Value WORKSTATION ID [id number] Impression Cardiomegaly. Biventricular ICD leads in place. Thank you for letting us participate in the care of this patient. If you are a health care provider and have any questions regarding this report, please contact the number below. For patients who have questions please contact the health cardiac care unit nurse that requested your imaging first. Electronically signed by: Stuart Aponte MD, [facility] ([phone]), at 06/03/2024 4:47 PM TTE: Limited echo performed by fellow chemical production engineer to assess LV function. Left ventricle [...] ischemic cardiomyopathy with HFrEF (~30% EF), prior WI with stents, DM type 2, HTN, HLD, [...] 40 mg IV given in the laborer carpentry dock; assess diuretic response, consider re-dosing -Continue carvedilol; [...] a lytic and brought directly to the [facility]. Cardiac catheterization demonstrated multivessel disease with severe [...] Friday -Diuresis with Jovanni Valdes MD Staff Setter Molding And Coremaking Machines * Fatmata Mcallister, PT - 06/03/2024 3:29 [...] vs PCI) Fatmata Mcallister PT, MSPT Pager [phone] Inpatient Physical Therapy * Marlin Gómez MD [...] Marlin Gómez MD Cardiology S2, Pager # [phone] 06/03/2024 * Delroy Fofana MD - 06/03/2024 7:16 AM EDT Images from the original note were not included. . Cardiology Progress Note Patient info: Name: George Mehta : 1955 PCP: Mauro Berumen MD PCP phone number: [phone] Date of Admission: 06/02/2024 ( Hospital Day 1 day ) Attending:Nuha Rojo MD ID: 69 y.o. male with a h/o DM type 2, HTN, HLD, current smoker (2-3 cigarettes/day), HFrEF with anICD for low EF (~30%), and CAD with prior WI x3 with JENNA placed in [place], Melanoma, PAD, presented to [facility] with 1 hour of retrosternal CP [...] in the last 7068 hours. Invalid input(s): [id number] Recent Labs 06/02/24 2331 POCGLU 156 Heme No results for input(s): LDH, HAPTOGLOBIN, URICACID in the last 168 hours. ABG (Arterial Blood Gas) No results found for: PHART, PO2ART, FEV6JZI, FXP7ZYQ Microbiology: Microbiology Results (Last 30 days) No results found for the last 720 hours. Imaging: Results for orders placed or performed during the hospital encounter of 06/02/24 XR Chest One View (Exam End: 06/03/2024 2:41 AM) Result Value WORKSTATION ID [id number] Impression No radiographically evident acute cardiopulmonary process. Thank you for letting us participate in the care of this patient. If you are a health care provider and have any questions regarding this report, please contact the number below. For patients who have questions please contact the health cardiac care unit nurse that requested your imaging first. Electronically signed by: Corazon Mauro MD, [facility] ([phone]), at 06/03/2024 3:06 AM TTE: Limited echo performed by fellow chemical production engineer to assess LV function. Left ventricle [...] ischemic cardiomyopathy with HFrEF (~30% EF), prior WI with stents, DM type 2, HTN, HLD, [...] 40 mg IV given in the laborer carpentry dock; assess diuretic response, consider re-dosing -Continue carvedilol; [...] @YESSI@ Dain Colón MD (PGY-1) Cardiology M1-S2, #[id number] 06/03/2024, 7:16 AM Cardiology Staff - Progress Note Addendum This patient was seen and examined on morning rounds with the S2 inpatient team. I agree with the findings and plan of care per Dain Colón MD (medical claims examiner). Please refer to his note above for [...] (TNK) and brought directly to the laborer carpentry dock. The cath demonstrated 3VD with diffuse disease [...] - 06/13/2024 10:58 AM EST ICU Blue (#[id number]) H&P Patient info: Name: George Mehta : 1955 PCP: Mauro Berumen MD PCP phone number: [phone] Date of Admission: 06/02/2024 ( Hospital Day 11 days ) Attending:Haja Byrnes MD ID: George Mehta is a 69 y.o. male with a h/o DM type 2, HTN, HLD, current smoker (2-3 cigarettes/day), HFrEF with an ICD for low EF (~30%), and CAD with prior WI x3 with JENNA placed in [place], Melanoma, PAD, presented to [facility] with 1 hour of retrosternal CP (05/13) while watching TV, foundto have STEMI. HPI: Shahnaz Scanlon H&P 06/02 69 y.o. male with a h/o DM type 2, HTN, HLD, current smoker (2-3 cigarettes/day), HFrEF with an ICD for low EF (~30%), and CAD with prior WI x3 with JENNA placed in [place], Melanoma, PAD, presented to [facility] with 1 hour of retrosternal CP (05/13) while watching TV. CP was non-radiating, not asso ciated with diaphoresis, nausea, or SOB. Denies orthopnea, MARTÍNEZ, palpitations, or LE edema. ECG showed findings consistent with anterior STEMI. He received TNK and was transferred for PCI. Coronary angiography showed a small, non-dominant RCA with btwc-si-yxzvkmrm disease and a dominant,heavily calcified left system with prior stents in the LAD and OM. The LM bifurcates into the LAD and LCX, both heavily calcified. The proximal LCX has a 75% calcified, aneurysmal lesion, and an 80% calcified lesion distally before a large OM2. OM1 is a DELIVERY AND MAIL SORTER with in-stent restenosis, filling retrograde via collaterals. [...] mg Lasix was administered in the laborer carpentry dock. Cardiac surgery was consulted and plan for [...] Blood Gas) No results for input(s): PHART, RBC1CJE, PO2ART, GHM1AHQ, LACTATEVEN, KTA1QPN, PFRATIOART2 in the last 168 hours. VBG (Venous Blood Gas) Recent Labs 06/10/24 1742 PHVEN 7.34 PO2VEN 24 FPJ9ERR 27.4 Mixed Venous Sat No results for input(s): E7UDYE7 in the last 168 hours. Intake/Output Summary [...] in the last 7068 hours. Invalid input(s): LGVTTZJNQIU0K Recent Labs 06/13/24 0741 06/13/24 0325 06/12/24 2353 06/12/24 1932 06/12/24 1541 06/12/24 1121 06/12/24 0800 06/12/24 0425 06/11/24 2356 06/11/24 2025 06/11/24 1624 06/11/24 1108 POCGLU 126 99 141 158 113 207* 169 132 135 210* 81 233* Heme No results for input(s): LDH, HAPTOGLOBIN, URICACID in the last 168 hours. ABG (Arterial Blood Gas) No results for input(s): PHART, AGU8MXB, PO2ART, CAR1ONV, LACTATEVEN, FZB5VKO, PFRATIOART2 in the last 168 hours. VBG (Venous Blood Gas) Recent Labs 06/10/24 1742 PHVEN 7.34 PO2VEN 24 TOI3YHL 27.4 Mixed Venous Sat No results for input(s): H3ZCWL4 in the last 168 hours. Microbiology: Microbiology Results (Last 30 days) No results found for the last 720 hours. Assessment & Plan: George Mehta is a 69 y.o. male with CAD, ischemic cardiomyopathy with HFrEF (~30% EF), prior WI with stents, DM type 2, HTN, HLD, [...] TUD (abstinent since admission), ASCVD with multipleprior WI and PCIs, ICM/HFrEF LVEF 30% (all [...] is in the chart Rebeca Prado MD Return Checker PGY6 [phone] * Shahnaz Scanlon MD - [...] low EF (~30%), and CAD with prior WI x3 with JENNA placed in [place], Melanoma, PAD, presented to [facility] with 1 hour of retrosternal CP (10/10) while watching TV. CP was non-radiating, not assoc iated with diaphoresis, nausea, or SOB. Denies orthopnea, MARTÍNEZ, palpitations, or LE edema. ECG showed findings consistent with anterior STEMI. He received TNK and was transferred for PCI. Coronary angiography showed a small, non-dominant RCA with sfjl-kj-pkzyxtpj disease and a dominant,heavily calcified left system with prior stents in the LAD and OM. The LM bifurcates into the LAD and LCX, both heavily calcified. The proximal LCX has a 75% calcified, aneurysmal lesion, and an 80% calcified lesion distally before a large OM2. OM1 is a DELIVERY AND MAIL SORTER with in-stent restenosis, filling retrograde via collaterals. [...] mg Lasix was administered in the laborer carpentry dock. Past Medical History: As per HPI Significant [...] normal. Behavior: Behavior normal. Diagnostics: [facility] 06/02/2024 Coronary angiography revealed small non [...] ischemic cardiomyopathy with HFrEF (~30% EF), prior WI with stents, DM type 2, HTN, HLD, [...] 40 mg IV given in the laborer carpentry dock; assess diuretic response. -Continue carvedilol; hold Entresto [...] & Follow-up Care: Contact information for follow-up [facility] [address] [facility] [address] Cardiac Rehab, [address] [address] JAMIE GRAMAJO confirmed with [facility] that they [...] MEDICARE Payor: AAR MANAGED MEDICARE / Plan: [facility] MANAGED MEDICARE COMPLETE / Product Type: [...] the outpatient Phase [address] [facility]. The patient agrees to a referral [...] Agency/Support Group Needs: Homecare agency Agency [facility] Health Services: Medication checks, Registered Nurse, Physical Therapy Agency Referrals: pending clinical course and PT/OT recs [facility] [address] [place] [address] PHONE: [phone] FAX: [phone] Transportation: family or friend will provide Barriers [...] AARP MANAGED MEDICARE / Plan: AARP [facility] MANAGED MEDICARE COMPLETE / Product Type: *No Product type* / Secondary Insurance: N/A Plan for discharge is: Home w/ Services Outpatient Agency/Support Group Needs: Homecare agency Agency Choices: [facility] Services: Medication checks, Registered Nurse, Physical Therapy Agency Referrals: pending clinical course and PT/OT recs [facility] [address] [place] [address] PHONE: [phone] FAX: [phone] Transportation: family or friend will provide Barriers [...] Operative Note Patient Name: George Mehta : [id number] MR#: [id number] Case Date: 06/14/2024 Surgeon: Surgeons and Role: * Bobby Loja MD - Primary * Rashi Bass PA - Physician Wastewater Project Engineer Preoperative diagnosis: CAD, MARIALUISA flickering mass [...] [place] SURGICAL PATHOLOGY Bobby Loja MD 06/14/2024 0997 3 : Tissue Heart, Atrial Appendage, Left [...] procedures today and tomorrow. Report called to [facility] - all belongings with patient. PLAN MOVING FORWARD: skilled labor and transfer to [facility]. INDIVIDUALIZED FALL PREVENTION [...] MEDICARE Payor: AAR MANAGED MEDICARE / Plan: [facility] MANAGED MEDICARE COMPLETE / Product Type: *No Product type* / Secondary Insurance: N/A Plan for discharge is: Home w/ Services Outpatient Agency/Support Group Needs: Homecare agency, Agency Choices: [facility] Home Health Services: Medication checks, Registered Nurse, Physical Therapy Agency Referrals: [facility] [place] [phone] RN / PT Routed 06/10 Transportation: family [...] with home health services when medically ready. molecular biology scientist/Facilities Mechanical Design Engineer will continue to follow patient???s progress and remain available if situation changes for coordination of care, psychosocial support and/or discharge planning. Anticipated Date of Discharge: 06/18/2024 Mariia Montero RN CM Extension [phone] * Plan of Care - Migel Javier [...] No Patient is insured through: Primary Insurance: [employer] MANAGED MEDICARE Payor: AARP MANAGED MEDICARE / Plan: [employer] MANAGED MEDICARE COMPLETE / Product Type: *No [...] consult for high risk PCI vs CABG molecular biology scientist/Facilities Mechanical Design Engineer will continue to follow patient???s progress and remain available if situation changes for coordination of care, psychosocial support and/or discharge planning. Anticipated Date of Discharge: 06/11/2024 Mariia Montero RN Extension [phone] * Plan of Care - Becca Hope [...] Appropriate) * Consult Note - Alejandra Baumann, MASONRY TEACHER - 06/06/2024 12:24 PM EST Diabetes Management Team Inpatient Consult Date of Consultation: 06/06/2024 Consult Requested by:Cardiology S2 Reason for Consultation:69 y.o. male with CAD, ischemic cardiomyopathy with HFrEF (~30% EF), prior WI with stents, DM type 2, HTN, HLD, [...] and to provide a review of terminal clerk diabetes care. Diabetes History: George Mehta [...] Breakfast- varies - eggs with khoury or slovak muffin Lunch- turkey sandwich Supper- meat and [...] Infusions: heparin (porcine) infusion 1,400 Units/hr (06/06/24 9865) PRN: insulin lispro, potassium chloride ER OR [...] ischemic cardiomyopathy with HFrEF (~30% EF), prior WI with stents, DM type 2, HTN, HLD, [...] Baumann APRN Endocrinology Diabetes Management Service Pager: [phone] Weekends please page [phone] 80 minute visit was spent in counseling [...] y.o. male with a PMHx of previous WI s/p PCI x3, ICM/HFrEF (LVEF 30%) s/p ICD, DMII, HTN, HLD, remote melanoma, and smoker who presented to [facility] last night via EMS after developing acute, severe chest pain while watching TV. Patient was ruled in for STEMI, given TNK, ASA, plavix, heparin gtt, and sent to [facility] for coronary angiography. LHC demonstrated severely calcified left coronary system with notable LCx 75/80% lesions and DELIVERY AND MAIL SORTER OM1 with ISR with collateral retrograde filling, [...] elevation myocardial infarction) Past Medical History: previous WI s/p PCI x3 ICM/HFrEF (LVEF 30%) s/p [...] is large. OM1 appears to be a DELIVERY AND MAIL SORTER, with in stentrestenosis and fills retrograde via [...] admitted with STEMI s/p TNK, [facility] showing multivessel CAD including ISR, no [...] our service. Signed: Paula Treviño PA-C [facility] Section of Cardiac Surgery Date: 06/03/2024 * Initial Assessments - Catina Estrada MSW - 06/03/2024 10:32 AM EDT Office of Care Management Initial Assessment CHINA Humphrey reviewed record and discussed patient with Care Team. Source of Information: Team, bedside nurse, medical record, and Patient CHINA Introduced self/reviewed role; services accepted. Admitted From: Transfer from another hospital Location: [facility] Reason for Hospitalization: Chest Pain while watching TV, doctors said I had a heart attack Past medical History: No past medical history on file. Hospitalizations Within the Past 30 Days: no previous admission in last 30 days Current Decision-Making Capacity: Self If AD's have not been completed the following surrogate would be surrogate decision maker per [place] surrogate decision making law. (Only good for 180 days) Any patient receiving care in [place] must abide by [place] law. The hierarchy for surrogate decision making [...] (i) The agent with financial power of delivery clerk or a conservator appointed in accordance with [...] in the bathroom) Home Address confirmed as: [address] [place] [address] [address] [facility] [address] Social & Family Supports: All names listed [...] Pertinent/Service Specific Information: Health/Prescription Coverage: Primary Insurance: [facility] MANAGED MEDICARE Payor: [facility] MANAGED MEDICARE / Plan: [facility] MANAGED MEDICARE COMPLETE / Product Type: *No Product type* / Secondary Insurance: N/A ; Prescription Coverage: Yes Preferred Pharmacy: [id number] - [place], [place] - [address] [place] [address] [place] [id number] [place] Status: Patient is a : No Primary Care Provider confirmed: Muaro Berumen MD [phone] Patient/Caregiver Goals of Treatment: Potential Needs for [...] care as indicated. CHINA Min Cardiology, [phone]. [phone] * Brief Op Note - Angeles Gaxiola PA - 06/03/2024 12:23 AM EDT Preliminary Cardiac Catheterization Procedure Note: Patient Name: George Mehta : [id number] MR#: [id number] Case Date: 06/02/2024 - 06/03/2024 Survey Research Teacher: Surgeons and Role: * Nuha Shen MD - Primary * Angeles Gaxiola PA - Physician Wastewater Project Engineer Preoperative diagnosis: STEMI Postoperative diagnosis: * STEMI * Procedure(s) performed: RRA access [facility] Coronary angiogram IVUS LM/LAD/LCX Access: 6 Fr RRA A time-out was conducted prior to the start of the procedure to verify the correct patient and procedure, procedure location, and all relevant critical information. Preliminary findings: 69 year old current smoker (1-2 cigarette's per day), DM type 2, hypertension, dyslipidemia, ICD for HFrEF/low EF (~30%), CAD with prior [place] and 3 stents historically (in [place]) who presented to [facility] with 1 hour of rest chest [...] is large. OM1 appears to be a DELIVERY AND MAIL SORTER, with in stentrestenosis and fills retrograde via [...] 40 mg of lasix in the laborer carpentry dock. Recommendations: surgical consult for possible open revascularization; [...] PM EST Office Visit Cardiology at [address] [phone] Moi Falcon MD [facility] [place] [address] Scheduled Orders Name Type Priority Associated Diagnoses [...] 7:20 AM EST Coronary artery disease involving [place] coronary artery of [place] heart without angina pectoris POC, GLUCOSE Routine [...] POC, GLUCOSE (06/21/2024 3:51 AM EST) Pathologist [facility] Glucometer, POC 142 65 - 199 mg/dL 06/21/2024 3:51 AM EST [facility] Comment:Supplemental ranges: <140 mg/dL before meals <180 mg/dL all other times of the day. Blood CAPILLARY BLOOD / Unknown 06/21/2024 3:51 AM EST 06/21/2024 3:51 AM EST Bobby Loja MD POINT OF CARE TEST O RDERABLES [facility] [place] [address] * (ABNORMAL) Basic Metabolic Panel (06/21/2024 2:09 AM EST) Pathologist [facility] Glucose 169 65 - 199 mg/dL 06/21/2024 3:10 AM [facility] Comment:Glucose [...] APRN CHEMISTRY ORDERABL ES Performing Organization Address [facility] Co de Phone Number [facility] [place] [address] * POC, GLUCOSE (06/21/2024 12:04 AM EST) Glucometer, POC 157 65 - 199 mg/dL 06/21/2024 12:04 AM EST [facility] Comment:Supplemental ranges: <140 mg/dL before meals <180 mg/dL all other times of the day. Blood CAPILLARY BLOOD / Unknown 06/21/2024 12:04 AM EST 06/21/2024 12:04 AM EST Bobby Loja MD POINT OF CARE TEST O NIKA Performing Organization Address [facility] Co de Phone Number [facility] [place] [address] * POC, GLUCOSE (06/20/2024 11:14 PM EST) Glucometer, POC 67 65 - 199 mg/dL 06/20/2024 11:14 PM EST [facility] Comment:Supplemental ranges: <140 mg/dL before meals <180 mg/dL all other times of the day. Blood CAPILLARY BLOOD / Unknown 06/20/2024 11:14 PM EST 06/20/2024 11:14 PM EST Bobby Loja MD POINT OF CARE TEST O NIKA Performing Organization Address City/[facility]/ZIP Co de Phone Number [facility] [place] [address] * POC, GLUCOSE (06/20/2024 7:16 PM EST) Glucometer, POC 132 65 - 199 mg/dL 06/20/2024 7:16 PM EST [facility] Comment:Supplemental ranges: <140 mg/dL before meals <180 mg/dL all other times of the day. Blood CAPILLARY BLOOD / Unknown 06/20/2024 7:16 PM EST 06/20/2024 7:16 PM EST Bobby Loja MD POINT OF CARE TEST O RDBECKIE Performing Organization Address City/[facility]/ZIP Co de Phone Number [facility] [place] [address] * POC, GLUCOSE (06/20/2024 3:39 PM EST) Glucometer, POC 124 65 - 199 mg/dL 06/20/2024 3:40 PM EST [facility] Comment:Supplemental ranges: <140 mg/dL before meals <180 mg/dL all other times of the day. Blood CAPILLARY BLOOD / Unknown 06/20/2024 3:39 PM EST 06/20/2024 3:40 PM EST Bobby Loja MD POINT OF CARE TEST O NIKA Performing Organization Address [facility] Co de Phone Number [facility] [place] [address] * POC, GLUCOSE (06/20/2024 12:02 PM EST) Glucometer, POC 173 65 - 199 mg/dL 06/20/2024 12:03 PM EST [facility] Comment:Supplemental ranges: <140 mg/dL before meals <180 mg/dL all other times of the day. Blood CAPILLARY BLOOD / Unknown 06/20/2024 12:02 PM EST 06/20/2024 12:03 PM EST Bobby Loja MD POINT OF CARE TEST O NIKA Performing Organization Address City/[facility]/ZIP Co de Phone Number [facility] [place] [address] * POC, GLUCOSE (06/20/2024 7:10 AM EST) Glucometer, POC 130 65 - 199 mg/dL 06/20/2024 7:11 AM EST [facility] Comment:Supplemental ranges: <140 mg/dL before meals <180 mg/dL all other times of the day. Blood CAPILLARY BLOOD / Unknown 06/20/2024 7:10 AM EST 06/20/2024 7:11 AM EST Bobby Loja MD POINT OF CARE TEST O RDERABLES [facility] [place] [address] * (ABNORMAL) Basic Metabolic Panel (06/20/2024 2:28 [...] 98 - 107 mMol/L 06/20/2024 3:06 AM [facility] Carbon Dioxide 29 22 - 31 mMol/L 06/20/2024 3:06 AM [facility] Anion Gap 8 5 - 15 mMol/L 06/20/2024 3:06 AM [facility] Calcium 8.4(L) 8.5 - 10.5 mg/dL 06/20/2024 3:06 AM [facility] Est Glomerular Filtration Rate - Male 56 mL/min/1. 73 m?? 06/20/2024 3:06 AM [facility] Comment: [...] APRN CHEMISTRY ORDERABL ES Performing Organization Address City/[facility]/ZIP Co de Phone Number [facility] [place] [address] * POC, GLUCOSE (06/20/2024 12:32 AM EST) Glucometer, POC 86 65 - 199 mg/dL 06/20/2024 12:32 AM EST [facility] Comment:Supplemental ranges: <140 mg/dL before meals <180 mg/dL all other times of the day. Blood CAPILLARY BLOOD / Unknown 06/20/2024 12:32 AM EST 06/20/2024 12:32 AM EST Bobby Loja MD POINT OF CARE TEST O NIKA Performing Organization Address City/[facility]/ZIP Co de Phone Number [facility] [place] [address] * (ABNORMAL) POC, GLUCOSE (06/20/2024 12:02 AM EST) Glucometer, POC 59(L) 65 - 199 mg/dL 06/20/2024 12:02 AM EST [facility] Comment:Supplemental ranges: <140 mg/dL before meals <180 mg/dL all other times of the day. Blood CAPILLARY BLOOD / Unknown 06/20/2024 12:02 AM EST 06/20/2024 12:03 AM EST Bobby Loja MD POINT OF CARE TEST O RDERABLES Performing Organization Address [facility] Co de Phone Number [facility] [place] [address] * POC, GLUCOSE (06/19/2024 8:15 PM EST) Glucometer, POC 131 65 - 199 mg/dL 06/19/2024 8:15 PM EST [facility] Comment:Supplemental ranges: <140 mg/dL before meals <180 mg/dL all other times of the day. Blood CAPILLARY BLOOD / Unknown 06/19/2024 8:15 PM EST 06/19/2024 8:15 PM EST Bobby Loja MD POINT OF CARE TEST O NIKA Performing Organization Address [facility] Co de Phone Number [facility] [place] [address] * POC, GLUCOSE (06/19/2024 6:01 PM EST) Glucometer, POC 129 65 - 199 mg/dL 06/19/2024 6:01 PM EST [facility] Comment:Supplemental ranges: <140 mg/dL before meals <180 mg/dL all other times of the day. Blood CAPILLARY BLOOD / Unknown 06/19/2024 6:01 PM EST 06/19/2024 6:02 PM EST Bobby Loja MD POINT OF CARE TEST O RDERAPIETER Performing Organization Address City/[facility] Co de Phone Number [facility] [place] [address] * POC, GLUCOSE (06/19/2024 4:51 PM EST) Glucometer, POC 155 65 - 199 mg/dL 06/19/2024 4:51 PM EST [facility] Comment:Supplemental ranges: <140 mg/dL before meals <180 mg/dL all other times of the day. Blood CAPILLARY BLOOD / Unknown 06/19/2024 4:51 PM EST 06/19/2024 4:51 PM EST Bobby Loja MD POINT OF CARE TEST O RDERAPIETER Performing Organization Address City/[facility] Co de Phone Number [facility] [place] [address] * POC, GLUCOSE (06/19/2024 12:37 PM EST) Glucometer, POC 136 65 - 199 mg/dL 06/19/2024 12:37 PM EST [facility] Comment:Supplemental ranges: <140 mg/dL before meals <180 mg/dL all other times of the day. Blood CAPILLARY BLOOD / Unknown 06/19/2024 12:37 PM EST 06/19/2024 12:37 PM EST Bobby Loja MD POINT OF CARE TEST O NIKA Performing Organization Address [facility] Co de Phone Number [facility] [place] [address] * POC, GLUCOSE (06/19/2024 11:20 AM EST) Glucometer, POC 185 65 - 199 mg/dL 06/19/2024 11:21 AM EST [facility] Comment:Supplemental ranges: <140 mg/dL before meals <180 mg/dL all other times of the day. Blood CAPILLARY BLOOD / Unknown 06/19/2024 11:20 AM EST 06/19/2024 11:21 AM EST Bobby Loja MD POINT OF CARE TEST O RALPHERAPIETER Performing Organization Address City/[facility]/ZIP Co de Phone Number [facility] [place] [address] * POC, GLUCOSE (06/19/2024 7:21 AM EST) Glucometer, POC 125 65 - 199 mg/dL 06/19/2024 7:21 AM EST [facility] Comment:Supplemental ranges: <140 mg/dL before meals <180 mg/dL all other times of the day. Blood CAPILLARY BLOOD / Unknown 06/19/2024 7:21 AM EST 06/19/2024 7:22 AM EST Bobby Loja MD POINT OF CARE TEST O NIKA Performing Organization Address [facility] Co de Phone Number [facility] [place] [address] * POC, GLUCOSE (06/19/2024 4:52 AM EST) Glucometer, POC 125 65 - 199 mg/dL 06/19/2024 4:52 AM EST [facility] Comment:Supplemental ranges: <140 mg/dL before meals <180 mg/dL all other times of the day. Blood CAPILLARY BLOOD / Unknown 06/19/2024 4:52 AM EST 06/19/2024 4:52 AM EST Bobby Loja MD POINT OF CARE TEST O NIKA Performing Organization Address [facility] Co de Phone Number [facility] [place] [address] * POC, GLUCOSE (06/19/2024 4:13 AM EST) [...] CARE TEST O NIKA Performing Organization Address [facility] Co de Phone Number [facility] [place] [address] * (ABNORMAL) POC, GLUCOSE (06/19/2024 3:48 AM EST) Glucometer, POC 51(LLL) 65 - 199 mg/dL 06/19/2024 3:48 AM [facility] Comment:Supplemental ranges: <140 mg/dL before meals <180 mg/dL all other times of the day. Blood CAPILLARY BLOOD / Unknown 06/19/2024 3:48 AM EST 06/19/2024 3:48 AM EST Bobby Loja MD POINT OF CARE TEST O RDERABLES [facility] [place] [address] * (ABNORMAL) Basic Metabolic Panel (06/19/2024 3:44 AM EST) Glucose 53(LLL) 65 - 199 mg/dL 06/19/2024 4:48 AM [facility] Comment:Glucose Concentratio n >=200 mg/dL plus symptoms is consistent with Diabetes Mellitus. Blood Urea Nitrogen 42(H) 10 - 20 mg/dL 06/19/2024 4:48 AM [facility] Creatinine 1.29 0.80 - 1.50 mg/dL 06/19/2024 4:48 AM [facility] Sodium [...] APRN CHEMISTRY ORDERABL ES Performing Organization Address [facility] Co de Phone Number [facility] [place] [address] * POC, GLUCOSE (06/19/2024 12:23 AM EST) Glucometer, POC 82 65 - 199 mg/dL 06/19/2024 12:23 AM EST [facility] Comment:Supplemental ranges: <140 mg/dL before meals <180 mg/dL all other times of the day. Blood CAPILLARY BLOOD / Unknown 06/19/2024 12:23 AM EST 06/19/2024 12:23 AM EST Bobby Loja MD POINT OF CARE TEST O RDERABLES [facility] [place] [address] * POC, GLUCOSE (06/18/2024 11:08 PM EST) Glucometer, POC 73 65 - 199 mg/dL 06/18/2024 11:08 PM EST [facility] Comment:Supplemental ranges: <140 mg/dL before meals <180 mg/dL all other times of the day. Blood CAPILLARY BLOOD / Unknown 06/18/2024 11:08 PM EST 06/18/2024 11:08 PM EST Bobby Loja MD POINT OF CARE TEST O RDBECKIE Performing Organization Address [facility]/ZIP Co de Phone Number [facility] [place] [address] * POC, GLUCOSE (06/18/2024 7:32 PM EST) Glucometer, POC 167 65 - 199 mg/dL 06/18/2024 7:32 PM EST [facility] Comment:Supplemental ranges: <140 mg/dL before meals <180 mg/dL all other times of the day. Blood CAPILLARY BLOOD / Unknown 06/18/2024 7:32 PM EST 06/18/2024 7:32 PM EST Bobby Loja MD POINT OF CARE TEST O NIKA Performing Organization Address [facility] Co de Phone Number [facility] [place] [address] * POC, GLUCOSE (06/18/2024 6:08 PM EST) Glucometer, POC 140 65 - 199 mg/dL 06/18/2024 6:09 PM EST [facility] Comment:Supplemental ranges: <140 mg/dL before meals <180 mg/dL all other times of the day. Blood CAPILLARY BLOOD / Unknown 06/18/2024 6:08 PM EST 06/18/2024 6:09 PM EST Bobby Loja MD POINT OF CARE TEST O NIKA Performing Organization Address City/[facility]/ZIP Co de Phone Number [facility] [place] [address] * POC, GLUCOSE (06/18/2024 4:17 PM EST) [...] CARE TEST O NIKA Performing Organization Address [facility] Co de Phone Number [facility] [place] [address] * POC, GLUCOSE (06/18/2024 12:09 PM EST) [...] CARE TEST Abimael MAHER Performing Organization Address [facility] Co de Phone Number [facility] [place] [address] * POC, GLUCOSE (06/18/2024 7:49 AM EST) [...] CARE TEST Abimael MAHER Performing Organization Address [facility] Co de Phone Number [facility] [place] [address] * (ABNORMAL) Basic Metabolic Panel (06/18/2024 4:19 [...] APRN CHEMISTRY ORDERABL ES Performing Organization Address City/[facility] Co de Phone Number [facility] [place] [address] * POC, GLUCOSE (06/18/2024 3:50 AM EST) Glucometer, POC 99 65 - 199 mg/dL 06/18/2024 3:51 AM EST [facility] Comment:Supplemental ranges: <140 mg/dL before meals <180 mg/dL all other times of the day. Blood CAPILLARY BLOOD / Unknown 06/18/2024 3:50 AM EST 06/18/2024 3:51 AM EST Bobby Loja MD POINT OF CARE TEST O NIKA Performing Organization Address [facility] Co de Phone Number [facility] [place] [address] * POC, GLUCOSE (06/17/2024 11:10 PM EST) Glucometer, POC 92 65 - 199 mg/dL 06/17/2024 11:10 PM EST [facility] Comment:Supplemental ranges: <140 mg/dL before meals <180 mg/dL all other times of the day. Blood CAPILLARY BLOOD / Unknown 06/17/2024 11:10 PM EST 06/17/2024 11:10 PM EST Bobby Loja MD POINT OF CARE TEST O NIKA Performing Organization Address [facility] Co de Phone Number [facility] [place] [address] * POC, GLUCOSE (06/17/2024 7:54 PM EST) Glucometer, POC 126 65 - 199 mg/dL 06/17/2024 7:54 PM EST [facility] Comment:Supplemental ranges: <140 mg/dL before meals <180 mg/dL all other times of the day. Blood CAPILLARY BLOOD / Unknown 06/17/2024 7:54 PM EST 06/17/2024 7:54 PM EST Bobby oLja MD POINT OF CARE TEST O RDERAPIETER Performing Organization Address [facility] de Phone Number [facility] [place] [address] * POC, GLUCOSE (06/17/2024 4:07 PM EST) Glucometer, POC 141 65 - 199 mg/dL 06/17/2024 4:12 PM EST [facility] Comment:Supplemental ranges: <140 mg/dL before meals <180 mg/dL all other times of the day. Blood CAPILLARY BLOOD / Unknown 06/17/2024 4:07 PM EST 06/17/2024 4:12 PM EST Bobby Loja MD POINT OF CARE TEST O RALPHERAPIETER Performing Organization Address [facility] de Phone Number [facility] [place] [address] * XR Chest PA & Lateral (Generic) (06/17/2024 1:46 PM EST) WORKSTATION ID [id number] DH RAD Anatomical Region Laterality Modality Chest [...] who have questions please contact the health cardiac care unit nurse that requested your imaging first. ? Electronically signed by: Josselyn Bebe, MD, [facility] ([phone]), at 06/17/2024 4:49 PM Narrative 06/17/2024 4:49 [...] patients who have questions please contactthe health cardiac care unit nurse that requested your imaging first. Electronically signed by: Josselyn Spence MD, [facility]([phone]), at 06/17/2024 4:49 PM Keila Hanley APRN IMG DX ORDERABLES * (ABNORMAL) POC, GLUCOSE (06/17/2024 11:04 AM EST) [facility] Glucometer, POC 245(H) 65 - 199 mg/dL 06/17/2024 11:04 AM EST [facility] Comment:Supplemental ranges: <140 mg/dL before meals <180 mg/dL all other times of the day. Blood CAPILLARY BLOOD / Unknown 06/17/2024 11:04 AM EST 06/17/2024 11:04 AM EST Bobby Loja MD POINT OF CARE TEST O NIKA Performing Organization Address City/[facility] Co de Phone Number [facility] [place] [address] * POC, GLUCOSE (06/17/2024 7:49 AM EST) Glucometer, POC 141 65 - 199 mg/dL 06/17/2024 7:55 AM EST [facility] Comment:Supplemental ranges: <140 mg/dL before meals <180 mg/dL all other times of the day. Blood CAPILLARY BLOOD / Unknown 06/17/2024 7:49 AM EST 06/17/2024 7:55 AM EST Bobby Loja MD POINT OF CARE TEST Abimael MAHER Performing Organization Address [facility] Co de Phone Number [facility] [place] [address] * POC, GLUCOSE (06/17/2024 4:16 AM EST) [...] CARE TEST O NIKA Performing Organization Address City/[facility] Co de Phone Number [facility] [place] [address] * Lactate, Whole Blood (06/17/2024 2:39 AM EST) Lactate, Whole Blood 1.3 0.5 - 2.2 mmol/L 06/17/2024 2:46 AM EST [facility] Blood VENOUS BLOOD SPECIMEN / Unknown Venipuncture / Unknown 06/17/2024 2:39 AM EST 06/17/2024 2:43 AM EST Bobby Loja MD CHEMISTRY ORDERABLES [facility] [place] [address] * (ABNORMAL) Hemogram (06/17/2024 2:39 AM EST) White Blood Cell 13.53(H) 4.00 - 9.50 x10(3)/mc L 06/17/2024 2:53 AM [facility] Red Blood Cell 3.55(L) 4.58 - 5.54 x10(6)/mc L 06/17/2024 2:53 AM [facility] Hemoglobin 10.8(L) 13.7 - 16.5 g/dL [...] HEMATOLOGY ORDERABLE S [facility] [place] [id number] * (ABNORMAL) Basic Metabolic Panel (06/17/2024 2:39 [...] Loja MD CHEMISTRY ORDERABLES Performing Organization Address [facility]/ZIP Co de Phone Number [facility] [place] [address] * (ABNORMAL) POC, GLUCOSE (06/17/2024 12:13 AM EST) [facility] Signature Glucometer, POC 211(H) 65 - 199 mg/dL 06/17/2024 12:13 AM EST [facility] Comment:Supplemental ranges: <140 mg/dL before meals <180 mg/dL all other times of the day. Blood CAPILLARY BLOOD / Unknown 06/17/2024 12:13 AM EST 06/17/2024 12:14 AM EST Bobby Loja MD POINT OF CARE TEST O RDERABLES Performing Organization Address City/[facility]/ZIP Co de Phone Number [facility] [place] [address] * (ABNORMAL) POC, GLUCOSE (06/16/2024 7:22 PM EST) Glucometer, POC 229(H) 65 - 199 mg/dL 06/16/2024 7:22 PM EST [facility] Comment:Supplemental ranges: <140 mg/dL before meals <180 mg/dL all other times of the day. Blood CAPILLARY BLOOD / Unknown 06/16/2024 7:22 PM EST 06/16/2024 7:22 PM EST Bobby Loja MD POINT OF CARE TEST O RDERABLES [facility] [place] [address] * (ABNORMAL) POC, GLUCOSE (06/16/2024 6:14 PM [...] CARE TEST O RDERABLES Performing Organization Address City/[facility]/ZIP Co de Phone Number [facility] [place] [address] * Lactate, Whole Blood (06/16/2024 6:14 PM EST) Lactate, Whole Blood 1.8 0.5 - 2.2 mmol/L 06/16/2024 6:27 PM EST [facility] Blood VENOUS BLOOD SPECIMEN / Unknown Venipuncture / Unknown 06/16/2024 6:14 PM EST 06/16/2024 6:25 PM EST Narrative Authorizing Provider Result Saarnya Loja MD CHEMISTRY ORDERABLES [facility] [place] [address] * (ABNORMAL) POC, GLUCOSE (06/16/2024 4:14 PM EST) Glucometer, POC 240(H) 65 - 199 mg/dL 06/16/2024 4:14 PM EST [facility] Comment:Supplemental ranges: <140 mg/dL before meals <180 mg/dL all other times of the day. Blood CAPILLARY BLOOD / Unknown 06/16/2024 4:14 PM EST 06/16/2024 4:14 PM EST Bobby Loja MD POINT OF CARE TEST O NIKA Performing Organization Address City/[facility]/ZIP Co de Phone Number [facility] [place] [address] * POC, GLUCOSE (06/16/2024 11:49 AM EST) Glucometer, POC 199 65 - 199 mg/dL 06/16/2024 11:49 AM EST [facility] Comment:Supplemental ranges: <140 mg/dL before meals <180 mg/dL all other times of the day. Blood CAPILLARY BLOOD / Unknown 06/16/2024 11:49 AM EST 06/16/2024 11:49 AM EST Bobby Loja MD POINT OF CARE TEST O NIKA Performing Organization Address City/[facility]/ZIP Co de Phone Number [facility] [place] [address] * (ABNORMAL) Hemogram (06/16/2024 11:44 AM EST) [...] NRBC% auto 0.0 % 06/16/2024 12:25 PM [facility] NRBC Absolute <0.01 <0.01 x10(3)/mc L 06/16/2024 12:25 PM [facility] Blood VENOUS BLOOD SPECIMEN / Unknown Venipuncture / Unknown 06/16/2024 11:44 AM EST 06/16/2024 12:03 PM EST Bobby Loja MD HEMATOLOGY ORDERABLE S [facility] [place] [address] * Lactate, Whole Blood (06/16/2024 9:02 AM EST) Lactate, Whole Blood 1.8 0.5 - 2.2 mmol/L 06/16/2024 9:19 AM EST [facility] Blood VENOUS BLOOD SPECIMEN / Unknown Venipuncture / Unknown 06/16/2024 9:02 AM EST 06/16/2024 9:17 AM EST Bobby Loja MD CHEMISTRY ORDERABLES [facility] [place] [address] * POC, GLUCOSE (06/16/2024 7:44 AM EST) Glucometer, POC 129 65 - 199 mg/dL 06/16/2024 7:44 AM EST [facility] Comment:Supplemental ranges: <140 mg/dL before meals <180 mg/dL all other times of the day. Blood CAPILLARY BLOOD / Unknown 06/16/2024 7:44 AM EST 06/16/2024 7:44 AM EST Bobby Loja MD POINT OF CARE TEST O RDERABLES Performing Organization Address City/[facility]/ZIP Co de Phone Number [facility] [place] [address] * POC, GLUCOSE (06/16/2024 4:01 AM EST) [...] TEST O RDERABLES [facility] [place] [address] * (ABNORMAL) Basic Metabolic Panel (06/16/2024 2:23 [...] 34 mL/min/1. 73 m?? 06/16/2024 3:13 AM [facility] Comment: [...] Loja MD CHEMISTRY ORDERABLES Performing Organization Address [facility] Co de Phone Number [facility] [place] [address] * POC, GLUCOSE (06/16/2024 2:21 AM EST) Glucometer, POC 176 65 - 199 mg/dL 06/16/2024 2:31 AM EST [facility] [facility] Comment:Supplemental ranges: <140 mg/dL before meals <180 mg/dL all other times of the day. Blood CAPILLARY BLOOD / Unknown 06/16/2024 2:21 AM EST 06/16/2024 2:31 AM EST Bobby Loja MD POINT OF CARE TEST O RDERABLES Performing Organization Address [facility] Co de Phone Number [facility] [place] [address] * (ABNORMAL) POC, GLUCOSE (06/16/2024 12:09 AM EST) Glucometer, POC 222(H) 65 - 199 mg/dL 06/16/2024 12:09 AM EST [facility] Comment:Supplemental ranges: <140 mg/dL before meals <180 mg/dL all other times of the day. Blood CAPILLARY BLOOD / Unknown 06/16/2024 12:09 AM EST 06/16/2024 12:09 AM EST Bobby Loja MD POINT OF CARE TEST O RDBECKIE Performing Organization Address [facility] Co de Phone Number [facility] [place] [address] * (ABNORMAL) POC, GLUCOSE (06/15/2024 10:07 PM EST) Glucometer, POC 320(H) 65 - 199 mg/dL 06/15/2024 10:07 PM EST [facility] Comment:Supplemental ranges: <140 mg/dL before meals <180 mg/dL all other times of the day. Blood CAPILLARY BLOOD / Unknown 06/15/2024 10:07 PM EST 06/15/2024 10:07 PM EST Bobby Loja MD POINT OF CARE TEST O NIKA Performing Organization Address City/[facility]/ZIP Co de Phone Number [facility] [place] [address] * (ABNORMAL) POC, GLUCOSE (06/15/2024 7:56 PM EST) Glucometer, POC 304(H) 65 - 199 mg/dL 06/15/2024 7:56 PM EST [facility] Comment:Supplemental ranges: <140 mg/dL before meals <180 mg/dL all other times of the day. Blood CAPILLARY BLOOD / Unknown 06/15/2024 7:56 PM EST 06/15/2024 7:56 PM EST Bobby Loja MD POINT OF CARE TEST O NIKA Performing Organization Address [facility] Co de Phone Number [facility] [place] [address] * (ABNORMAL) POC, GLUCOSE (06/15/2024 7:52 PM [...] CARE TEST O NIKA Performing Organization Address City/[facility]/ZIP Co de Phone Number [facility] [place] [address] * POC, GLUCOSE (06/15/2024 4:21 PM EST) Glucometer, POC 192 65 - 199 mg/dL 06/15/2024 4:21 PM EST [facility] Comment:Supplemental ranges: <140 mg/dL before meals <180 mg/dL all other times of the day. Blood CAPILLARY BLOOD / Unknown 06/15/2024 4:21 PM EST 06/15/2024 4:21 PM EST Bobby Loja MD POINT OF CARE TEST O NIKA Performing Organization Address City/[facility]/ZIP Co de Phone Number [facility] [place] [address] * POC, GLUCOSE (06/15/2024 3:27 PM EST) Glucometer, POC 155 65 - 199 mg/dL 06/15/2024 3:27 PM EST [facility] Comment:Supplemental ranges: <140 mg/dL before meals <180 mg/dL all other times of the day. Blood CAPILLARY BLOOD / Unknown 06/15/2024 3:27 PM EST 06/15/2024 3:27 PM EST Bobby Loja MD POINT OF CARE TEST O NIKA Performing Organization Address [facility] Co de Phone Number [facility] [place] [address] * POC, GLUCOSE (06/15/2024 2:23 PM EST) Glucometer, POC 160 65 - 199 mg/dL 06/15/2024 2:23 PM EST [facility] Comment:Supplemental ranges: <140 mg/dL before meals <180 mg/dL all other times of the day. Blood CAPILLARY BLOOD / Unknown 06/15/2024 2:23 PM EST 06/15/2024 2:23 PM EST Bobby Loja MD POINT OF CARE TEST O NIKA Performing Organization Address City/[facility]/ZIP Co de Phone Number [facility] [place] [address] * POC, GLUCOSE (06/15/2024 1:26 PM EST) Glucometer, POC 167 65 - 199 mg/dL 06/15/2024 1:26 PM EST [facility] Comment:Supplemental ranges: <140 mg/dL before meals <180 mg/dL all other times of the day. Blood CAPILLARY BLOOD / Unknown 06/15/2024 1:26 PM EST 06/15/2024 1:26 PM EST Bobby Loja MD POINT OF CARE TEST O NIKA Performing Organization Address [facility] Co de Phone Number [facility] [place] [address] * (ABNORMAL) POC, GLUCOSE (06/15/2024 12:55 PM EST) Glucometer, POC 210(H) 65 - 199 mg/dL 06/15/2024 12:55 PM EST [facility] Comment:Supplemental ranges: <140 mg/dL before meals <180 mg/dL all other times of the day. Blood CAPILLARY BLOOD / Unknown 06/15/2024 12:55 PM EST 06/15/2024 12:55 PM EST Bobby Loja MD POINT OF CARE TEST O NIKA Performing Organization Address [facility] Co de Phone Number [facility] [place] [address] * (ABNORMAL) POC, GLUCOSE (06/15/2024 11:29 AM EST) Glucometer, POC 220(H) 65 - 199 mg/dL 06/15/2024 11:29 AM EST [facility] Comment:Supplemental ranges: <140 mg/dL before meals <180 mg/dL all other times of the day. Blood CAPILLARY BLOOD / Unknown 06/15/2024 11:29 AM EST 06/15/2024 11:29 AM EST Bobby Loja MD POINT OF CARE TEST O RDERABLES [facility] [place] [address] * (ABNORMAL) Basic Metabolic Panel (06/15/2024 11:23 [...] 5 - 15 mMol/L 06/15/2024 12:08 PM [facility] Calcium 8.3(L) 8.5 - 10.5 mg/dL 06/15/2024 12:08 PM [facility] Est Glomerular Filtration Rate - Male 49 mL/min/1. 73 m?? 06/15/2024 12:08 PM [facility] Comment: This [...] MD CHEMISTRY ORDERABLES [facility] [place] [address] * POC, GLUCOSE (06/15/2024 10:29 AM EST) Glucometer, POC 189 65 - 199 mg/dL 06/15/2024 10:29 AM EST [facility] Comment:Supplemental ranges: <140 mg/dL before meals <180 mg/dL all other times of the day. Blood CAPILLARY BLOOD / Unknown 06/15/2024 10:29 AM EST 06/15/2024 10:29 AM EST Bobby Loja MD POINT OF CARE TEST O RDERABLES Performing Organization Address City/[facility]/ZIP Co de Phone Number [facility] [place] [address] * POC, GLUCOSE (06/15/2024 9:45 AM EST) [...] TEST O RDERABLES [facility] [place] [address] * (ABNORMAL) Cooximetry, POC (06/15/2024 9:31 AM [...] TEST O RDERABLES [facility] [place] [address] * Cooximetry, POC (06/15/2024 9:22 AM EST) [...] TEST O RDERABLES [facility] [place] [address] * (ABNORMAL) Blood Gas, Arterial POC (06/15/2024 [...] CARE TEST O NIKA Performing Organization Address City/[facility]/ZIP Co de Phone Number [facility] [place] [address] * (ABNORMAL) POC, GLUCOSE (06/15/2024 8:37 AM EST) Glucometer, POC 204(H) 65 - 199 mg/dL 06/15/2024 8:37 AM [facility] Comment:Supplemental ranges: <140 mg/dL before meals <180 mg/dL all other times of the day. Blood CAPILLARY BLOOD / Unknown 06/15/2024 8:37 AM EST 06/15/2024 8:37 AM EST Bobby Loja MD POINT OF CARE TEST O NIKA [facility] [place] [address] * POC, GLUCOSE (06/15/2024 7:37 AM EST) Glucometer, POC 199 65 - 199 mg/dL 06/15/2024 7:37 AM EST [facility] Comment:Supplemental ranges: <140 mg/dL before meals <180 mg/dL all other times of the day. Blood CAPILLARY BLOOD / Unknown 06/15/2024 7:37 AM EST 06/15/2024 7:38 AM EST Bobby Loja MD POINT OF CARE TEST O NIKA Performing Organization Address [facility] de Phone Number [facility] [place] [address] * (ABNORMAL) POC, GLUCOSE (06/15/2024 7:01 AM EST) Glucometer, POC 203(H) 65 - 199 mg/dL 06/15/2024 7:01 AM EST [facility] Comment:Supplemental ranges: <140 mg/dL before meals <180 mg/dL all other times of the day. Blood CAPILLARY BLOOD / Unknown 06/15/2024 7:01 AM EST 06/15/2024 7:01 AM EST Bobby Loja MD POINT OF CARE TEST Abimael MAHER Performing Organization Address [facility] de Phone Number [facility] [place] [address] * XR Chest One View (06/15/2024 6:31 AM EST) WORKSTATION ID [id number] RAD Anatomical Region Laterality Modality Chest N/A [...] who have questions please contact the health cardiac care unit nurse that requested your imaging first. ? Electronically signed by: Stuart Aponte MD, [facility] ??([phone]), at 06/15/2024 10:38 AM Narrative 06/15/2024 10:38 [...] patients who have questions please contactthe health cardiac care unit nurse that requested your imaging first. Electronically signed by: Stuart Aponte MD, [facility]([phone]), at 06/15/2024 10:38 AM Bobby Loja MD [...] CARE TEST O NIKA Performing Organization Address City/[facility]/ZIP Co de Phone Number [facility] [place] [address] * POC, GLUCOSE (06/15/2024 5:06 AM EST) Glucometer, POC 160 65 - 199 mg/dL 06/15/2024 5:06 AM EST [facility] Comment:Supplemental ranges: <140 mg/dL before meals <180 mg/dL all other times of the day. Blood CAPILLARY BLOOD / Unknown 06/15/2024 5:06 AM EST 06/15/2024 5:06 AM EST Bobby Loja MD POINT OF CARE TEST O NIKA Performing Organization Address City/[facility]/ZIP Co de Phone Number [facility] [place] [address] * POC, GLUCOSE (06/15/2024 4:05 AM EST) Glucometer, POC 160 65 - 199 mg/dL 06/15/2024 4:06 AM EST [facility] Comment:Supplemental ranges: <140 mg/dL before meals <180 mg/dL all other times of the day. Blood CAPILLARY BLOOD / Unknown 06/15/2024 4:05 AM EST 06/15/2024 4:06 AM EST Bobby oLja MD POINT OF CARE TEST O NIKA [facility] [place] [address] * POC, GLUCOSE (06/15/2024 3:07 AM EST) Glucometer, POC 151 65 - 199 mg/dL 06/15/2024 3:07 AM EST [facility] Comment:Supplemental ranges: <140 mg/dL before meals <180 mg/dL all other times of the day. Blood CAPILLARY BLOOD / Unknown 06/15/2024 3:07 AM EST 06/15/2024 3:07 AM EST Bobby Loja MD POINT OF CARE TEST O RDERABLES [facility] [place] [address] * (ABNORMAL) Basic Metabolic Panel (06/15/2024 1:48 [...] MD CHEMISTRY ORDERABLES [facility] [place] [address] * (ABNORMAL) CBC (with Diff) (06/15/2024 1:48 [...] - 3.20 x10(3)/mc L 06/15/2024 2:13 AM [facility] Monocyte % 11.4 % 06/15/2024 2:13 [...] HEMATOLOGY ORDERABLE S [facility] [place] [id number] * (ABNORMAL) Troponin - Single (06/15/2024 1:48 [...] can be found in the [facility] Test Catalog Troponin - [email or web address] Reference: Fourth [place] Definition of Myocardial Infarction. Journal of the [place] [employer] 2018;72:3894-6852 Blood VENOUS BLOOD SPECIMEN / Unknown Venipuncture / Unknown 06/15/2024 1:48 AM EST 06/15/2024 1:52 AM EST Bobby Loja MD CHEMISTRY ORDERABLES [facility] [place] [address] * (ABNORMAL) Blood Gas, Arterial POC (06/15/2024 [...] 65 - 199 mg/dL 06/15/2024 1:47 AM [facility] Comment:Glucose Concentratio n >=200 mg/dL plus symptoms is consistent with Diabetes Mellitus. Blood ARTERIAL BLOOD / Unknown 06/15/2024 1:46 AM EST 06/15/2024 1:47 AM EST Bobby Loja MD POINT OF CARE TEST O RDERABLES [facility] [place] [address] * POC, GLUCOSE (06/15/2024 1:05 AM EST) Glucometer, POC 116 65 - 199 mg/dL 06/15/2024 1:05 AM EST [facility] Comment:Supplemental ranges: <140 mg/dL before meals <180 mg/dL all other times of the day. Blood CAPILLARY BLOOD / Unknown 06/15/2024 1:05 AM EST 06/15/2024 1:05 AM EST Bobby Loja MD POINT OF CARE TEST O RDNICOLLEBLES Performing Organization Address City/[facility]/ZIP Co de Phone Number [facility] [place] [address] * POC, GLUCOSE (06/15/2024 12:16 AM EST) Glucometer, POC 135 65 - 199 mg/dL 06/15/2024 12:16 AM EST [facility] Comment:Supplemental ranges: <140 mg/dL before meals <180 mg/dL all other times of the day. Blood CAPILLARY BLOOD / Unknown 06/15/2024 12:16 AM EST 06/15/2024 12:16 AM EST Bobby Loja MD POINT OF CARE TEST O NIKA Performing Organization Address City/[facility]/ZIP Co de Phone Number [facility] [place] [address] * Potassium (06/14/2024 11:28 PM EST) Potassium 4.1 3.5 - 5.0 mMol/L 06/14/2024 11:54 PM EST [facility] Blood VENOUS BLOOD SPECIMEN / Unknown Venipuncture / Unknown 06/14/2024 11:28 PM EST 06/14/2024 11:34 PM EST Bobby Loja MD CHEMISTRY ORDERABLES Performing Organization Address City/[facility]/ZIP Co de Phone Number [facility] [place] [address] * POC, GLUCOSE (06/14/2024 10:58 PM EST) [...] CARE TEST O RDERAPIETER Performing Organization Address City/[facility]/ZIP Co de Phone Number [facility] [place] [address] * POC, GLUCOSE (06/14/2024 9:55 PM EST) [...] CARE TEST O NIKA Performing Organization Address City/[facility]/ZIP Co de Phone Number [facility] [place] [address] * POC, GLUCOSE (06/14/2024 8:54 PM EST) Glucometer, POC 151 65 - 199 mg/dL 06/14/2024 8:54 PM EST [facility] Comment:Supplemental ranges: <140 mg/dL before meals <180 mg/dL all other times of the day. Blood CAPILLARY BLOOD / Unknown 06/14/2024 8:54 PM EST 06/14/2024 8:54 PM EST Narrative Authorizing Provider Result Saranya Ljoa MD POINT OF CARE TEST O RDERAPIETER Performing Organization Address City/[facility]/ZIP Co de Phone Number [facility] [place] [address] * POC, GLUCOSE (06/14/2024 7:51 PM EST) Glucometer, POC 169 65 - 199 mg/dL 06/14/2024 7:52 PM EST [facility] Comment:Supplemental ranges: <140 mg/dL before meals <180 mg/dL all other times of the day. Blood CAPILLARY BLOOD / Unknown 06/14/2024 7:51 PM EST 06/14/2024 7:52 PM EST Bobby Loja MD POINT OF CARE TEST O NIKA [facility] [place] [address] * POC, GLUCOSE (06/14/2024 6:49 PM EST) Glucometer, POC 194 65 - 199 mg/dL 06/14/2024 6:50 PM EST [facility] Comment:Supplemental ranges: <140 mg/dL before meals <180 mg/dL all other times of the day. Blood CAPILLARY BLOOD / Unknown 06/14/2024 6:49 PM EST 06/14/2024 6:50 PM EST Bobby Loja MD POINT OF CARE TEST O NIKA [facility] [place] [address] * (ABNORMAL) Hemoglobin (06/14/2024 6:19 PM EST) Hemoglobin 13.1(L) 13.7 - 16.5 g/dL 06/14/2024 7:08 PM EST [facility] Blood VENOUS BLOOD SPECIMEN / Unknown Venipuncture / Unknown 06/14/2024 6:19 PM EST 06/14/2024 6:28 PM EST Bobby Loja MD HEMATOLOGY ORDERABLE S [facility] [place] [address] * Potassium (06/14/2024 6:19 PM EST) [facility] Potassium 3.9 3.5 - 5.0 mMol/L 06/14/2024 6:52 PM EST [facility] Blood VENOUS BLOOD SPECIMEN / Unknown Venipuncture / Unknown 06/14/2024 6:19 PM EST 06/14/2024 6:28 PM EST Bobby Loja MD CHEMISTRY ORDERABLES Performing Organization Address City/[facility]/ZIP Co de Phone Number [facility] [place] [address] * (ABNORMAL) POC, GLUCOSE (06/14/2024 6:03 PM EST) [facility] Glucometer, POC 201(H) 65 - 199 mg/dL 06/14/2024 6:03 PM EST [facility] Comment:Supplemental ranges: <140 mg/dL before meals <180 mg/dL all other times of the day. Blood CAPILLARY BLOOD / Unknown 06/14/2024 6:03 PM EST 06/14/2024 6:03 PM EST Bobby Loja MD POINT OF CARE TEST O RDERABLES Performing Organization Address City/[facility]/ZIP Co de Phone Number [facility] [place] [address] * (ABNORMAL) Blood Gas, Arterial POC (06/14/2024 4:51 PM EST) [facility] pH, Arterial 7.32(L) 7.35 - [...] CARE TEST O NIKA Performing Organization Address [facility] Co de Phone Number [facility] [place] [address] * POC, GLUCOSE (06/14/2024 4:00 PM EST) Glucometer, POC 184 65 - 199 mg/dL 06/14/2024 4:01 PM EST [facility] Comment:Supplemental ranges: <140 mg/dL before meals <180 mg/dL all other times of the day. Blood CAPILLARY BLOOD / Unknown 06/14/2024 4:00 PM EST 06/14/2024 4:01 PM EST Bobby Loja MD POINT OF CARE TEST O NIKA Performing Organization Address [facility] Phone Number [facility] [place] [address] * XR Chest One View (06/14/2024 3:05 PM EST) WORKSTATION ID [id number] DH RAD Anatomical Region Laterality Modality Chest [...] who have questions please contact the health cardiac care unit nurse that requested your imaging first. ? Electronically signed by: Stuart Aponte MD, [facility] ??([phone]), at 06/14/2024 4:07 PM Narrative 06/14/2024 4:07 [...] patients who have questions please contactthe health cardiac care unit nurse that requested your imaging first. Electronically signed by: Stuart Aponte MD, [facility]([phone]), at 06/14/2024 4:07 PM Bobby Loja MD [...] TEST O RDERABLES [facility] [place] [address] * EKG 12 Lead (06/14/2024 2:46 PM EST) Ventricular rate 80 BPM MUSE SYSTEM Atrial Rate 80 BPM MUSE SYSTEM P-R Interval 120 ms MUSE SYSTEM QRS Duration 108 ms MUSE SYSTEM Q-T Interval 454 ms MUSE SYSTEM QTC Calculated (Bezet) 523 ms MUSE SYSTEM Calculated P [place] 70 degrees MUSE SYSTEM Calculated R [place] 56 degrees MUSE SYSTEM Calculated T [place] 50 degrees MUSE SYSTEM INTERPRETATION AV dual-paced rhythm Abnormal ECG When compared with ECG of 03-JUN-2024 01:45, Vent. rate has increased BY ??17 BPM Confirmed by MD Marisol, Shaheen ([id number]) on 06/15/2024 1:57:23 PM MUSE SYSTEM 06/14/2024 2:46 PM EST 06/15/2024 1:57 PM EST Bobby Loja MD ECG ORDERABLES MUSE SYSTEM * Prepare RBC (06/14/2024 2:27 PM EST) Status Information Returned [facility] Product Identification RBC [facility] Unit Number [id number] [facility] Product [facility] [id number] [facility] Unit Blood Type OPOS [facility] Specimen Expiration Date [facility] Volulme 350 [facility] Issue Date / Time [facility] Status Information Returned [facility] Product Identification RBC [facility] Unit Number [id number] [facility] Product Code [id number] [facility] Unit Blood Type OPOS [facility] Specimen Expiration Date [facility] Volulme 350 [facility] Issue Date / Time [facility] Blood 06/14/2024 6:2 5 AM EST Haja Byrnes MD BLOOD BANK PRODUCT O RDERABLES [facility] [place] [place] [address] * (ABNORMAL) Cooximetry, POC (06/14/2024 1:52 PM [...] Coox 0.6 <=1.5 % 06/14/2024 1:55 PM [facility] Blood (Mixed Venous) 06/14/2024 1:52 PM EST 06/14/2024 1:55 PM EST Haja Byrnes MD POINT OF CARE TEST O RDERABLES [facility] [place] [address] * (ABNORMAL) Blood Gas, Arterial POC (06/14/2024 12:47 PM EST) pH, Arterial 7.33(L) 7.35 - 7.45 06/14/2024 12:48 PM [facility] PCO2, Arterial 46(H) 35 - 45 [...] TEST O RDERABLES [facility] [place] [address] * (ABNORMAL) Cooximetry, POC (06/14/2024 12:42 PM EST) pO2, Coox 71 mmHg 06/14/2024 12:45 PM [facility] Hemoglobin, Coox 11.6(L) 13.7 - 16.5 g/dL 06/14/2024 12:45 PM [facility] Oxyhemoglobin, Coox 91.5 % 06/14/2024 12:45 [...] TEST O RDERABLES [facility] [place] [address] * (ABNORMAL) Platelet count (06/14/2024 12:30 PM EST) Platelet 73(L) 145 - 357 x10(3)/mcL 06/14/2024 12:54 PM EST [facility] Blood ARTERIAL BLOOD / Unknown 06/14/2024 12:30 PM EST Comment:Pre-op diagnosis: CAD Bobby Loja MD HEMATOLOGY ORDERABLE S Performing Organization Address City/[facility]/ZIP Co de Phone Number [facility] [place] [address] * (ABNORMAL) Hemoglobin and Hematocrit, blood (06/14/2024 [...] MD HEMATOLOGY ORDERABLE S Performing Organization Address [facility] Co de Phone Number [facility] [place] [address] * APTT (06/14/2024 12:30 PM EST) Partial [...] MD HEMATOLOGY ORDERABLE S Performing Organization Address [facility] Co de Phone Number [facility] [place] [address] * (ABNORMAL) Prothrombin Time (06/14/2024 12:30 PM [...] MD HEMATOLOGY ORDERABLE S Performing Organization Address [facility] Co de Phone Number [facility] [place] [address] * Fibrinogen (06/14/2024 12:30 PM EST) Fibrinogen 211 200 - 393 mg/dL 06/14/2024 12:57 PM EST [facility] Comment: A fibrinogen level >100 mg/dL is adequate for hemostasis in most patients without underlying bleeding disorders. Blood ARTERIAL BLOOD / Unknown 06/14/2024 12:30 PM EST 06/14/2024 12:42 PM EST Comment:Pre-op diagnosis: CAD Bobby Loja MD HEMATOLOGY ORDERABLE S Performing Organization Address [facility] Co de Phone Number [facility] [place] [address] * (ABNORMAL) Blood Gas, Arterial POC (06/14/2024 [...] TEST O RDERABLES [facility] [place] [address] * (ABNORMAL) Blood Gas, Arterial POC (06/14/2024 [...] TEST O RDERABLES [facility] [place] [address] * (ABNORMAL) Blood Gas, Arterial POC (06/14/2024 [...] TEST O RDERABLES [facility] [place] [address] * (ABNORMAL) Scan, Peripheral Blood (06/14/2024 11:23 AM EST) RBC Morphology Abnormal 06/14/2024 11:59 AM [facility] Platelet Estimate Decreased(A) Normal 06/14/2024 11:59 AM [facility] Aretha cells 1-5 /HPF 06/14/2024 11:59 AM [facility] Blood ARTERIAL BLOOD / Unknown 06/14/2024 11:23 AM EST 06/14/2024 11:27 AM EST Bobby Loja MD HEMATOLOGY ORDERABLE S [facility] [place] [address] * (ABNORMAL) Platelet count (06/14/2024 11:23 AM EST) Platelet 86(L) 145 - 357 x10(3)/mcL 06/14/2024 11:59 AM EST [facility] Blood ARTERIAL BLOOD / Unknown 06/14/2024 11:23 AM EST Comment:Pre-op diagnosis: CAD Bobby Loja MD HEMATOLOGY ORDERABLE S [facility] [place] [address] * (ABNORMAL) Hemoglobin and Hematocrit, blood (06/14/2024 [...] HEMATOLOGY ORDERABLE S [facility] [place] [address] * (ABNORMAL) Blood Gas, Arterial POC (06/14/2024 [...] TEST O RDERABLES [facility] [place] [address] * (ABNORMAL) Blood Gas, Arterial POC (06/14/2024 [...] TEST O RDERABLES [facility] [place] [address] * (ABNORMAL) Blood Gas, Arterial POC (06/14/2024 [...] 1.15 - 1.33 mmol/L 06/14/2024 10:26 AM [facility] Glucose, Arterial 148 65 - 199 mg/dL 06/14/2024 10:26 AM [facility] Comment:Glucose Concentratio n >=200 mg/dL plus symptoms is consistent with Diabetes Mellitus. Blood ARTERIAL BLOOD / Unknown 06/14/2024 10:25 AM EST 06/14/2024 10:26 AM EST Haja Byrnes MD POINT OF CARE TEST O RDERABLES [facility] [place] [address] * Surgical Pathology (06/14/2024 9:53 AM EST) Case Report Surgical Pathology Report ? Case: [id number] ? Authorizing Provider: ??Bobby Loja MD ? Collected: ? 06/14/2024 0953 ? Ordering Location: ? Main Operating Room Kristen ?? Received: ?06/14/2024 1413 ? [facility] ? Pathologist: ? Sandra Salas [...] Inking: External surface inked black Sections/Process ing: Social Security Specialist sections in 4 cassettes labeled A1-A4. cmk B. Heart, Atrial Appendage, Left, . B - Labeled/Fixative : Heart, atrial appendage, left, fresh. Quantity/Size: Single, 3.3 x 1.5 x 0.8 cm. Tissue Description: Portion of heart tissue consisting of rodriguez-white, semitranslucent, smooth endocardium with rodriguez-brown muscular myocardium and thin translucent epicardium with adherent adipose tissue. No areas of discoloration identified. Sections/Process ing: Social Security Specialist sections in 1 cassette labeled B1. cmk 06/18/2024 10:18 AM [facility] Result Note Routine 06/18/2024 10:18 AM [facility] Tissue SOFT TISSUE MASS / Unknown 06/14/2024 9:53 AM EST 06/14/2024 2:13 PM EST Comment:Mediastinal mass Tissue specimen (specimen) LEFT ATRIAL APPENDAGE ABSENT / Unknown 06/14/2024 10:54 AM EST 06/14/2024 2:13 PM EST Comment:MARIALUISA Bobby Loja MD PATHOLOGY/CYTOLOGY O RDERABLES [facility] [place] [address] * Cooximetry, POC (06/14/2024 9:00 AM EST) [...] TEST O RDERABLES [facility] [place] [address] * (ABNORMAL) Blood Gas, Arterial POC (06/14/2024 8:39 AM [facility]) pH, Arterial 7.37 7.35 - 7.45 [...] TEST O RDERABLES [facility] [place] [address] * Transesophageal Echo/OR (06/14/2024 7:20 AM EST) Anatomical Region Laterality Modality Cardiac Other 06/14/2024 7:20 AM EST Narrative 06/14/2024 4:36 PM EST Version: 2 Study ID: [id number] [address] [place] [address] ?OR Transesophageal Echo Report Name: TYSON GEORGE L ? Study Date: 06/14/2024, 7: 20 AM ?Patient Location: ^OR16^A : 1955 Age: 69 Years Gender: Male Ordering Physician: BOBBY LOJA Referring Physician: ENHAL QUINTERO ?Conclusions This KAREN is done at [...] of this mass after consultation with other clinching machine operator experts and the decision was made [...] MD - 06/14/2024 Version: 2 Study ID: [id number] [address] [place] [id number] ORTransesophageal Echo Report Name: GEORGE MEHTA Study Date: 06/14/2024,7: 20 AM Patient Location:^NE16^A : 1955 Age: 69 Years Gender: Male [...] of this mass after consultation with other clinching machine operator experts and thedecision was made by [...] CARE TEST O NIKA Performing Organization Address City/[facility]/ZIP Co de Phone Number [facility] [place] [address] * POC, GLUCOSE (06/14/2024 4:30 AM EST) Glucometer, POC 85 65 - 199 mg/dL 06/14/2024 4:30 AM EST [facility] Comment:Supplemental ranges: <140 mg/dL before meals <180 mg/dL all other times of the day. Blood CAPILLARY BLOOD / Unknown 06/14/2024 4:30 AM EST 06/14/2024 4:30 AM EST Haja Byrnes MD POINT OF CARE TEST O NIKA Performing Organization Address City/[facility]/ZIP Co de Phone Number [facility] [place] [address] * (ABNORMAL) Heparin (unfractionated) Level (06/14/2024 12:12 AM EST) UF Heparin 1.02(HHH) IU/mL 06/14/2024 12:46 AM [facility] Comment: [...] HEMATOLOGY ORDERABLE S [facility] [place] [address] * (ABNORMAL) CBC (with Diff) (06/14/2024 12:12 [...] HEMATOLOGY ORDERABLE S [facility] [place] [address] * Magnesium (06/14/2024 12:12 AM EST) Magnesium 0.74 0.69 - 1.07 mMol/L 06/14/2024 12:57 AM EST [facility] Blood VENOUS BLOOD SPECIMEN / Unknown Venipuncture / Unknown 06/14/2024 12:12 AM EST 06/14/2024 12:29 AM EST Shahnaz Scanlon MD CHEMISTRY ORDERABLES [facility] [place] [address] * (ABNORMAL) Basic Metabolic Panel (06/14/2024 12:12 [...] MD CHEMISTRY ORDERABLES [facility] [place] [address] * Scan Doc: Implantable Devices (06/14/2024 12:00 [...] CARE TEST O NIKA Performing Organization Address City/[facility]/ZIP Co de Phone Number [facility] [place] [address] * (ABNORMAL) POC, GLUCOSE (06/13/2024 8:03 PM EST) Glucometer, POC 206(H) 65 - 199 mg/dL 06/13/2024 8:03 PM EST [facility] Comment:Supplemental ranges: <140 mg/dL before meals <180 mg/dL all other times of the day. Blood CAPILLARY BLOOD / Unknown 06/13/2024 8:03 PM EST 06/13/2024 8:03 PM EST Haja Byrnes MD POINT OF CARE TEST O NIKA Performing Organization Address City/[facility]/ZIP Co de Phone Number [facility] [place] [address] * Heparin (unfractionated) Level (06/13/2024 4:11 PM [...] MD HEMATOLOGY ORDERABLE S Performing Organization Address City/[facility]/ZIP Co de Phone Number [facility] [place] [address] * ABORH RECHECK (06/13/2024 4:11 PM EST) [facility] ABORH Recheck O POSITIVE 06/13/2024 4:50 PM EST [facility] Blood VENOUS BLOOD SPECIMEN / Unknown Venipuncture / Unknown 06/13/2024 4:11 PM EST 06/13/2024 4:19 PM EST Haja Byrnes MD BLOOD BANK LAB ORDER EUSEBIA Performing Organization Address City/[facility] Co de Phone Number [facility] [place] [place] [address] * (ABNORMAL) POC, GLUCOSE (06/13/2024 4:09 PM EST) [facility] Glucometer, POC 216(H) 65 - 199 mg/dL 06/13/2024 4:10 PM EST [facility] Comment:Supplemental ranges: <140 mg/dL before meals <180 mg/dL all other times of the day. Blood CAPILLARY BLOOD / Unknown 06/13/2024 4:09 PM EST 06/13/2024 4:10 PM EST Haja Byrnes MD POINT OF CARE TEST O RDERABLES [facility] [place] [address] * Type and screen ([facility]/CGP/RAFITA) (06/13/2024 11:53 AM EST) Pathologist [facility] ABORH Type O POSITIVE 06/13/2024 1:16 PM EST [facility] PATIENT HISTORY Not Found 06/13/2024 1:16 PM EST [facility] Expires at [id number] on: 06/16/2024 06/13/2024 1:16 PM EST [facility] ANTIBODY SCREEN AUTOMATED Negative 06/13/2024 1:16 PM EST [facility] T&S only valid at [facility] 06/13/2024 1:16 PM EST [facility] Blood VENOUS BLOOD SPECIMEN / Unknown Venipuncture / Unknown 06/13/2024 11:53 AM EST 06/13/2024 11:56 AM EST Narrative [facility] - 06/13/2024 1:16 PM EST This Type and Screen result is only valid at the [facility] Haja Byrnes MD BLOOD BANK LAB ORDER EUSEBIA Performing Organization Address City/[facility]/ZIP Co de Phone Number [facility] [place] [place] [address] * POC, GLUCOSE (06/13/2024 11:50 AM EST) [facility] Glucometer, POC 178 65 - 199 mg/dL 06/13/2024 11:51 AM EST [facility] Comment:Supplemental ranges: <140 mg/dL before meals <180 mg/dL all other times of the day. Blood CAPILLARY BLOOD / Unknown 06/13/2024 11:50 AM EST 06/13/2024 11:51 AM EST Haja Byrnes MD POINT OF CARE TEST O RDERABLES [facility] [place] [address] * XR Chest One View (06/13/2024 10:35 AM EST) WORKSTATION ID [id number] RAD Anatomical Region Laterality Modality Chest N/A [...] who have questions please contact the health cardiac care unit nurse that requested your imaging first. ? Electronically signed by: Jyothi Simon MD, [facility] ([phone]), at 06/13/2024 10:43 AM Narrative 06/13/2024 10:43 [...] patients who have questions please contactthe health cardiac care unit nurse that requested your imaging first. Electronically signed by: Jyothi Simon MD, [facility]([phone]), at 06/13/2024 10:43 AM Haja Byrnes MD IMG DX ORDERABLES * CARDIAC CATHETERIZATION (06/13/2024 9:02 AM EST) Anatomical Region Laterality Modality Other Narrative 06/15/2024 9:07 AM EST ?[facility] ? Cardiac Catheterization/Intervention Report ? Patient Name: Tyson, George L. ? Procedure Date: 06/13/2024 ? A #: [id number] ? Primary Physician: Nuha Shen I ? Case #: [id number] ? File Name: [id number] ? Catheterization Order Number: [id number] ? [facility] ? Final Report [place], [place] ? Patient Name: ? George L. Tyson ? ID#: ?[id number] ? : ?1955 ? Procedure Date: ? June 13, 2024 ?Case #: ? [id number] ? Room: ? 6 ? Case Physician: [...] ?was designated as ASA Class IV. The [facility] clinical frailty scale is 5: ?Mildly Frail. [...] was Urgent. The indication for ?the laborer carpentry dock visit is ACS greater than 24 hrs [...] vascular ?ultrasound and IABP insertion in laborer carpentry dock. ? Nuha Shen, M.D. ? Electronically Signed by: Nuha Shen, M.D. ? Report Finalized: 06/15/2024 ??08:59 ? Procedure Note Nuha Shen MD - 06/15/2024 [facility] Cardiac Catheterization/Intervention Report Patient Name: George Mehta Procedure Date: 06/13/2024 A #: [id number] Primary Physician: Nuha Shen I Case #: [id number] File Name: [id number] Catheterization Order Number: [id number] [facility] FinalReport [place], [place] Patient Name: George Mehta ID#:[id number] :1955 Procedure Date: June 13, 2024 Case [...] was designated as ASA Class IV. The [facility] clinical frailty scale is5: Mildly Frail. Diagnostic [...] procedure was Urgent. The indicationfor the laborer carpentry dock visit is ACS greater than 24 hrs [...] angiography,vascular ultrasound and IABP insertion in laborer carpentry dock. Nuha Shen M.D. Electronically Signed by: Nuha Shen M.D. Report Finalized: 06/15/2024 08:59 Nuha Rojo MD CARDIAC CATH ORDERA BLES * Potassium (06/13/2024 7:48 AM EST) [facility] Potassium 4.5 3.5 - 5.0 mMol/L 06/13/2024 8:28 AM EST [facility] Blood VENOUS BLOOD SPECIMEN / Unknown Venipuncture / Unknown 06/13/2024 7:48 AM EST 06/13/2024 7:55 AM EST Shahnaz Scanlon MD CHEMISTRY ORDERABLES Performing Organization Address City/[facility]/ZIP Co de Phone Number [facility] [place] [address] * POC, GLUCOSE (06/13/2024 7:41 AM EST) Glucometer, POC 126 65 - 199 mg/dL 06/13/2024 7:41 AM EST [facility] Comment:Supplemental ranges: <140 mg/dL before meals <180 mg/dL all other times of the day. Blood CAPILLARY BLOOD / Unknown 06/13/2024 7:41 AM EST 06/13/2024 7:41 AM EST Ethel Carrillo MD POINT OF CARE TEST O RDERABLES Performing Organization Address City/[facility]/ZIP Co de Phone Number [facility] [place] [address] * POC, GLUCOSE (06/13/2024 3:25 AM EST) Glucometer, POC 99 65 - 199 mg/dL 06/13/2024 3:25 AM EST [facility] Comment:Supplemental ranges: <140 mg/dL before meals <180 mg/dL all other times of the day. Blood CAPILLARY BLOOD / Unknown 06/13/2024 3:25 AM EST 06/13/2024 3:25 AM EST Ethel Carrillo MD POINT OF CARE TEST O RDERABLES Performing Organization Address [facility] de Phone Number [facility] [place] [address] * Heparin (unfractionated) Level (06/13/2024 2:26 AM EST) Pathologist [facility] UF Heparin 0.60 IU/mL 06/13/2024 3:32 AM [...] MD HEMATOLOGY ORDERABLE S Performing Organization Address City/[facility]/ZIP Co de Phone Number [facility] [place] [address] * (ABNORMAL) CBC (with Diff) (06/13/2024 2:26 AM EST) White Blood Cell 9.98(H) 4.00 - 9.50 x10(3)/mc L 06/13/2024 2:41 AM [facility] Red Blood Cell 5.11 4.58 - 5.54 x10(6)/mc L 06/13/2024 2:41 AM [facility] Hemoglobin [...] - 0.10 x10(3)/mc L 06/13/2024 2:41 AM [facility] Immature Gran % 0.5 % 2:41 AM [facility] Immature Gran Absolute 0.05(H) 0.00 - 0.04 x10(3)/mc L 06/13/2024 2:41 AM [facility] Blood VENOUS BLOOD SPECIMEN / Unknown Venipuncture / Unknown 06/13/2024 2:26 AM EST 06/13/2024 2:32 AM EST Shahnza Scanlon MD HEMATOLOGY ORDERABLE S [facility] [place] [address] * Magnesium (06/13/2024 2:26 AM EST) Magnesium 0.78 0.69 - 1.07 mMol/L 06/13/2024 2:58 AM [facility] Blood VENOUS BLOOD SPECIMEN / Unknown Venipuncture / Unknown 06/13/2024 2:26 AM EST 06/13/2024 2:31 AM EST Shahnaz Scanlon MD CHEMISTRY ORDERABLES [facility] [place] [address] * (ABNORMAL) Basic Metabolic Panel (06/13/2024 2:26 AM EST) Glucose 121 65 - 199 mg/dL 06/13/2024 2:58 AM [facility] Comment:Glucose Concentratio n >=200 mg/dL plus symptoms is consistent with Diabetes Mellitus. Blood Urea Nitrogen 21(H) 10 - 20 mg/dL 06/13/2024 2:58 AM [facility] Creatinine 1.07 0.80 - 1.50 mg/dL [...] Scanlon MD CHEMISTRY ORDERABLES Performing Organization Address City/[facility]/ZIP Co de Phone Number [facility] [place] [address] * POC, GLUCOSE (06/12/2024 11:53 PM EST) Glucometer, POC 141 65 - 199 mg/dL 06/12/2024 11:54 PM EST [facility] Comment:Supplemental ranges: <140 mg/dL before meals <180 mg/dL all other times of the day. Blood CAPILLARY BLOOD / Unknown 06/12/2024 11:53 PM EST 06/12/2024 11:54 PM EST Ethel Carrillo MD POINT OF CARE TEST O RDERABLES [facility] [place] [address] * POC, GLUCOSE (06/12/2024 7:32 PM EST) Glucometer, POC 158 65 - 199 mg/dL 06/12/2024 7:32 PM EST [facility] Comment:Supplemental ranges: <140 mg/dL before meals <180 mg/dL all other times of the day. Blood CAPILLARY BLOOD / Unknown 06/12/2024 7:32 PM EST 06/12/2024 7:32 PM EST Ethel Carrillo MD POINT OF CARE TEST O NIKA Performing Organization Address City/[facility]/ZIP Co de Phone Number [facility] [place] [address] * POC, GLUCOSE (06/12/2024 3:41 PM EST) Glucometer, POC 113 65 - 199 mg/dL 06/12/2024 3:41 PM EST [facility] Comment:Supplemental ranges: <140 mg/dL before meals <180 mg/dL all other times of the day. Blood CAPILLARY BLOOD / Unknown 06/12/2024 3:41 PM EST 06/12/2024 3:41 PM EST Ethel Carrillo MD POINT OF CARE TEST Abimael MAHER Performing Organization Address [facility]/ZIP Co de Phone Number [facility] [place] [address] * Potassium (06/12/2024 2:19 PM EST) [facility] Potassium 4.5 3.5 - 5.0 mMol/L 06/12/2024 2:45 PM EST [facility] Blood VENOUS BLOOD SPECIMEN / Unknown Venipuncture / Unknown 06/12/2024 2:19 PM EST 06/12/2024 2:23 PM EST Shahnaz Scanlon MD CHEMISTRY ORDERABLES Performing Organization Address City/[facility]/ZIP Co de Phone Number [facility] [place] [address] * (ABNORMAL) POC, GLUCOSE (06/12/2024 11:21 AM EST) Glucometer, POC 207(H) 65 - 199 mg/dL 06/12/2024 11:21 AM EST [facility] Comment:Supplemental ranges: <140 mg/dL before meals <180 mg/dL all other times of the day. Blood CAPILLARY BLOOD / Unknown 06/12/2024 11:21 AM EST 06/12/2024 11:22 AM EST Ethel Carrillo MD POINT OF CARE TEST O NIKA Performing Organization Address City/[facility]/ZIP Co de Phone Number [facility] [place] [address] * POC, GLUCOSE (06/12/2024 8:00 AM EST) Glucometer, POC 169 65 - 199 mg/dL 06/12/2024 8:01 AM EST [facility] Comment:Supplemental ranges: <140 mg/dL before meals <180 mg/dL all other times of the day. Blood CAPILLARY BLOOD / Unknown 06/12/2024 8:00 AM EST 06/12/2024 8:01 AM EST Ethel Carrillo MD POINT OF CARE TEST O NIKA Performing Organization Address City/[facility]/ZIP Co de Phone Number [facility] [place] [address] * POC, GLUCOSE (06/12/2024 4:25 AM EST) Glucometer, POC 132 65 - 199 mg/dL 06/12/2024 4:26 AM EST [facility] Comment:Supplemental ranges: <140 mg/dL before meals <180 mg/dL all other times of the day. Blood CAPILLARY BLOOD / Unknown 06/12/2024 4:25 AM EST 06/12/2024 4:26 AM EST Ethel Carrillo MD POINT OF CARE TEST O NIKA [facility] [place] [address] * Heparin (unfractionated) Level (06/12/2024 3:03 AM [...] MD HEMATOLOGY ORDERABLE S Performing Organization Address City/State/[facility] Co de Phone Number [facility] [place] [address] * (ABNORMAL) CBC (with Diff) (06/12/2024 3:03 AM EST) Pathologist [facility] White Blood Cell 9.69(H) 4.00 - 9.50 [...] HEMATOLOGY ORDERABLE S [facility] [place] [address] * Magnesium (06/12/2024 3:03 AM EST) Magnesium 0.79 0.69 - 1.07 mMol/L 06/12/2024 4:01 AM [facility] Blood VENOUS BLOOD SPECIMEN / Unknown Venipuncture / Unknown 06/12/2024 3:03 AM EST 06/12/2024 3:30 AM EST Shahnaz Scanlon MD CHEMISTRY ORDERABLES [facility] [place] [address] * (ABNORMAL) Basic Metabolic Panel (06/12/2024 3:03 [...] MD CHEMISTRY ORDERABLES [facility] [place] [address] * POC, GLUCOSE (06/11/2024 11:56 PM EST) Glucometer, POC 135 65 - 199 mg/dL 06/11/2024 11:56 PM EST [facility] Comment:Supplemental ranges: <140 mg/dL before meals <180 mg/dL all other times of the day. Blood CAPILLARY BLOOD / Unknown 06/11/2024 11:56 PM EST 06/11/2024 11:56 PM EST Ethel Carrillo MD POINT OF CARE TEST O RDERAPIETER Performing Organization Address [facility] de Phone Number [facility] [place] [address] * (ABNORMAL) POC, GLUCOSE (06/11/2024 8:25 PM EST) Glucometer, POC 210(H) 65 - 199 mg/dL 06/11/2024 8:26 PM EST [facility] Comment:Supplemental ranges: <140 mg/dL before meals <180 mg/dL all other times of the day. Blood CAPILLARY BLOOD / Unknown 06/11/2024 8:25 PM EST 06/11/2024 8:26 PM EST Ethel Carrillo MD POINT OF CARE TEST O NIKA Performing Organization Address [facility] Co de Phone Number [facility] [place] [address] * POC, GLUCOSE (06/11/2024 4:24 PM EST) Glucometer, POC 81 65 - 199 mg/dL 06/11/2024 4:24 PM EST [facility] Comment:Supplemental ranges: <140 mg/dL before meals <180 mg/dL all other times of the day. Blood CAPILLARY BLOOD / Unknown 06/11/2024 4:24 PM EST 06/11/2024 4:25 PM EST Ethel Carrillo MD POINT OF CARE TEST O NIKA Performing Organization Address [facility] de Phone Number [facility] [place] [address] * (ABNORMAL) POC, GLUCOSE (06/11/2024 11:08 AM EST) Glucometer, POC 233(H) 65 - 199 mg/dL 06/11/2024 11:08 AM EST [facility] Comment:Supplemental ranges: <140 mg/dL before meals <180 mg/dL all other times of the day. Blood CAPILLARY BLOOD / Unknown 06/11/2024 11:08 AM EST 06/11/2024 11:08 AM EST Ethel Carrillo MD POINT OF CARE TEST O NIKA Performing Organization Address [facility] de Phone Number [facility] [place] [address] * POC, GLUCOSE (06/11/2024 7:48 AM EST) Glucometer, POC 184 65 - 199 mg/dL 06/11/2024 7:49 AM EST [facility] Comment:Supplemental ranges: <140 mg/dL before meals <180 mg/dL all other times of the day. Blood CAPILLARY BLOOD / Unknown 06/11/2024 7:48 AM EST 06/11/2024 7:49 AM EST Melida Valdes MD POINT OF CARE TEST O NIKA Performing Organization Address [facility] Co de Phone Number [facility] [place] [address] * Heparin (unfractionated) Level (06/11/2024 5:31 AM [...] MD HEMATOLOGY ORDERABLE S Performing Organization Address [facility] Co de Phone Number [facility] [place] [address] * POC, GLUCOSE (06/11/2024 3:57 AM EST) Glucometer, POC 132 65 - 199 mg/dL 06/11/2024 3:58 AM EST [facility] Comment:Supplemental ranges: <140 mg/dL before meals <180 mg/dL all other times of the day. Blood CAPILLARY BLOOD / Unknown 06/11/2024 3:57 AM EST 06/11/2024 3:58 AM EST Melida Valdes MD POINT OF CARE TEST O RDERABLES Performing Organization Address [facility] Co de Phone Number [facility] [place] [address] * (ABNORMAL) CBC (with Diff) (06/11/2024 2:13 [...] HEMATOLOGY ORDERABLE S [facility] [place] [address] * Magnesium (06/11/2024 2:13 AM EST) Magnesium 0.83 0.69 - 1.07 mMol/L 06/11/2024 2:51 AM [facility] Blood VENOUS BLOOD SPECIMEN / Unknown Venipuncture / Unknown 06/11/2024 2:13 AM EST 06/11/2024 2:19 AM EST Sahhnaz Scanlon MD CHEMISTRY ORDERABLES [facility] [place] [address] * (ABNORMAL) Basic Metabolic Panel (06/11/2024 2:13 [...] Scanlon MD CHEMISTRY ORDERABLES Performing Organization Address [facility] Co de Phone Number [facility] [place] [address] * POC, GLUCOSE (06/11/2024 12:50 AM EST) Glucometer, POC 144 65 - 199 mg/dL 06/11/2024 12:51 AM EST [facility] Comment:Supplemental ranges: <140 mg/dL before meals <180 mg/dL all other times of the day. Blood CAPILLARY BLOOD / Unknown 06/11/2024 12:50 AM EST 06/11/2024 12:51 AM EST Melida Valdes MD POINT OF CARE TEST O RDERAPIETER Performing Organization Address [facility] Co de Phone Number [facility] [place] [address] * (ABNORMAL) POC, GLUCOSE (06/10/2024 7:22 PM EST) Glucometer, POC 236(H) 65 - 199 mg/dL 06/10/2024 7:22 PM EST [facility] Comment:Supplemental ranges: <140 mg/dL before meals <180 mg/dL all other times of the day. Blood CAPILLARY BLOOD / Unknown 06/10/2024 7:22 PM EST 06/10/2024 7:22 PM EST Melida Valdes MD POINT OF CARE TEST O RDERABLES [facility] [place] [address] * (ABNORMAL) Blood Gas, Venous (06/10/2024 5:42 [...] Valdes MD CHEMISTRY ORDERABLES Performing Organization Address [facility] Co de Phone Number [facility] [place] [address] * POC, GLUCOSE (06/10/2024 5:35 PM EST) Glucometer, POC 123 65 - 199 mg/dL 06/10/2024 5:35 PM EST [facility] Comment:Supplemental ranges: <140 mg/dL before meals <180 mg/dL all other times of the day. Blood CAPILLARY BLOOD / Unknown 06/10/2024 5:35 PM EST 06/10/2024 5:35 PM EST Melida Valdes MD POINT OF CARE TEST O RDERABLES [facility] [place] [address] * (ABNORMAL) POC, GLUCOSE (06/10/2024 11:25 AM EST) Glucometer, POC 216(H) 65 - 199 mg/dL 06/10/2024 11:25 AM EST [facility] Comment:Supplemental ranges: <140 mg/dL before meals <180 mg/dL all other times of the day. Blood CAPILLARY BLOOD / Unknown 06/10/2024 11:25 AM EST 06/10/2024 11:25 AM EST Melida Valdes MD POINT OF CARE TEST O NIKA Performing Organization Address [facility] Co de Phone Number [facility] [place] [address] * (ABNORMAL) POC, GLUCOSE (06/10/2024 7:46 AM EST) Glucometer, POC 206(H) 65 - 199 mg/dL 06/10/2024 7:46 AM EST [facility] Comment:Supplemental ranges: <140 mg/dL before meals <180 mg/dL all other times of the day. Blood CAPILLARY BLOOD / Unknown 06/10/2024 7:46 AM EST 06/10/2024 7:46 AM EST Melida Valdes MD POINT OF CARE TEST O NIKA Performing Organization Address [facility] Co de Phone Number [facility] [place] [address] * POC, GLUCOSE (06/10/2024 4:23 AM EST) Glucometer, POC 154 65 - 199 mg/dL 06/10/2024 4:24 AM EST [facility] Comment:Supplemental ranges: <140 mg/dL before meals <180 mg/dL all other times of the day. Blood CAPILLARY BLOOD / Unknown 06/10/2024 4:23 AM EST 06/10/2024 4:24 AM EST Melida Valdes MD POINT OF CARE TEST O NIKA Performing Organization Address [facility] Co de Phone Number [facility] [place] [address] * (ABNORMAL) CBC (with Diff) (06/10/2024 1:55 [...] HEMATOLOGY ORDERABLE S [facility] [place] [address] * Magnesium (06/10/2024 1:55 AM EST) Magnesium 0.83 0.69 - 1.07 mMol/L 06/10/2024 2:37 AM [facility] Blood VENOUS BLOOD SPECIMEN / Unknown Venipuncture / Unknown 06/10/2024 1:55 AM EST 06/10/2024 2:05 AM EST Shahnaz Scanlon MD CHEMISTRY ORDERABLES [facility] [place] [address] * (ABNORMAL) Basic Metabolic Panel (06/10/2024 1:55 [...] AM EST 06/10/2024 2:05 AM EST Shahnaz Scalnon MD CHEMISTRY ORDERABLES Performing Organization Address [facility] Co de Phone Number [facility] [place] [address] * Heparin (unfractionated) Level (06/10/2024 1:54 AM [...] MD HEMATOLOGY ORDERABLE S Performing Organization Address [facility]/ZIP Co de Phone Number [facility] [place] [address] * POC, GLUCOSE (06/10/2024 12:05 AM EST) Glucometer, POC 125 65 - 199 mg/dL 06/10/2024 12:05 AM EST [facility] Comment:Supplemental ranges: <140 mg/dL before meals <180 mg/dL all other times of the day. Blood CAPILLARY BLOOD / Unknown 06/10/2024 12:05 AM EST 06/10/2024 12:05 AM EST Melida Valdes MD POINT OF CARE TEST O NIKA Performing Organization Address City/[facility]/ZIP Co de Phone Number [facility] [place] [address] * POC, GLUCOSE (06/09/2024 8:36 PM EST) Glucometer, POC 197 65 - 199 mg/dL 06/09/2024 8:36 PM EST [facility] Comment:Supplemental ranges: <140 mg/dL before meals <180 mg/dL all other times of the day. Blood CAPILLARY BLOOD / Unknown 06/09/2024 8:36 PM EST 06/09/2024 8:36 PM EST Melida Valdes MD POINT OF CARE TEST O NIKA Performing Organization Address [facility]/ZIP Co de Phone Number [facility] [place] [address] * POC, GLUCOSE (06/09/2024 5:27 PM EST) Glucometer, POC 174 65 - 199 mg/dL 06/09/2024 5:28 PM EST [facility] Comment:Supplemental ranges: <140 mg/dL before meals <180 mg/dL all other times of the day. Blood CAPILLARY BLOOD / Unknown 06/09/2024 5:27 PM EST 06/09/2024 5:28 PM EST Melida Valdes MD POINT OF CARE TEST O RDERABLES Performing Organization Address [facility] Co de Phone Number [facility] [place] [address] * (ABNORMAL) POC, GLUCOSE (06/09/2024 11:52 AM EST) Glucometer, POC 211(H) 65 - 199 mg/dL 06/09/2024 11:52 AM EST [facility] Comment:Supplemental ranges: <140 mg/dL before meals <180 mg/dL all other times of the day. Blood CAPILLARY BLOOD / Unknown 06/09/2024 11:52 AM EST 06/09/2024 11:52 AM EST Melida Valdes MD POINT OF CARE TEST O RDERABLES Performing Organization Address [facility] Co de Phone Number [facility] [place] [address] * Potassium (06/09/2024 8:25 AM EST) Potassium 4.6 3.5 - 5.0 mMol/L 06/09/2024 10:09 AM EST [facility] Blood VENOUS BLOOD SPECIMEN / Unknown Venipuncture / Unknown 06/09/2024 8:25 AM EST 06/09/2024 8:42 AM EST Shahnaz Scanlon MD CHEMISTRY ORDERABLES Performing Organization Address City/[facility] Co de Phone Number [facility] [place] [address] * (ABNORMAL) POC, GLUCOSE (06/09/2024 8:10 AM EST) Glucometer, POC 209(H) 65 - 199 mg/dL 06/09/2024 8:10 AM EST [facility] Comment:Supplemental ranges: <140 mg/dL before meals <180 mg/dL all other times of the day. Blood CAPILLARY BLOOD / Unknown 06/09/2024 8:10 AM EST 06/09/2024 8:11 AM EST Melida Valdes MD POINT OF CARE TEST O RDBECKIE Performing Organization Address [facility] Co de Phone Number [facility] [place] [address] * POC, GLUCOSE (06/09/2024 4:40 AM EST) Glucometer, POC 131 65 - 199 mg/dL 06/09/2024 4:40 AM EST [facility] Comment:Supplemental ranges: <140 mg/dL before meals <180 mg/dL all other times of the day. Blood CAPILLARY BLOOD / Unknown 06/09/2024 4:40 AM EST 06/09/2024 4:41 AM EST Melida Valdes MD POINT OF CARE TEST O NIKA Performing Organization Address [facility] Co de Phone Number [facility] [place] [address] * Heparin (unfractionated) Level (06/09/2024 2:12 AM [...] HEMATOLOGY ORDERABLE S [facility] [place] [address] * (ABNORMAL) CBC (with Diff) (06/09/2024 2:12 AM EST) White Blood Cell 9.80(H) 4.00 - 9.50 x10(3)/mc L 06/09/2024 2:44 AM [facility] Red Blood Cell 5.18 4.58 - 5.54 x10(6)/mc L 06/09/2024 2:44 AM [facility] Hemoglobin 15.5 13.7 - 16.5 g/dL 06/09/2024 2:44 AM [facility] Hematocrit 47.4 40.5 - 48.5 % 06/09/2024 2:44 AM [facility] Mean Cell Volume 91.5 82.9 - 93.1 fL 06/09/2024 2:44 AM [facility] Basophil % 0.9 % 06/09/2024 2:44 AM [facility] Baso Absolute 0.09 0.00 - 0.10 x10(3)/mc L 06/09/2024 2:44 AM [facility] Immature Gran % 0.6 % 2:44 AM [facility] Immature Gran Absolute 0.06(H) 0.00 - 0.04 x10(3)/mc L 06/09/2024 2:44 AM [facility] Blood VENOUS BLOOD SPECIMEN / Unknown Venipuncture / Unknown 06/09/2024 2:12 AM EST 06/09/2024 2:21 AM EST Shahnaz Scanlon MD HEMATOLOGY ORDERABLE S [facility] [place] [address] * Magnesium (06/09/2024 2:12 AM EST) Pathologist [facility] Magnesium 0.83 0.69 - 1.07 mMol/L 06/09/2024 2:52 AM EST [facility] Blood VENOUS BLOOD SPECIMEN / Unknown Venipuncture / Unknown 06/09/2024 2:12 AM EST 06/09/2024 2:22 AM EST Shahnaz Scanlon MD CHEMISTRY ORDERABLES Performing Organization Address City/[facility]/ZIP Co de Phone Number [facility] [place] [address] * (ABNORMAL) Basic Metabolic Panel (06/09/2024 2:12 AM EST) [facility] Glucose 147 65 - 199 [...] Scanlon MD CHEMISTRY ORDERABLES Performing Organization Address City/[facility]/ZIP Co de Phone Number [facility] [place] [address] * POC, GLUCOSE (06/09/2024 12:34 AM EST) Glucometer, POC 186 65 - 199 mg/dL 06/09/2024 12:34 AM EST [facility] Comment:Supplemental ranges: <140 mg/dL before meals <180 mg/dL all other times of the day. Blood CAPILLARY BLOOD / Unknown 06/09/2024 12:34 AM EST 06/09/2024 12:34 AM EST Melida Valdes MD POINT OF CARE TEST O RDERABLES Performing Organization Address City/[facility]/ZIP Co de Phone Number [facility] [place] [address] * POC, GLUCOSE (06/08/2024 8:27 PM EST) Glucometer, POC 176 65 - 199 mg/dL 06/08/2024 8:28 PM EST [facility] Comment:Supplemental ranges: <140 mg/dL before meals <180 mg/dL all other times of the day. Blood CAPILLARY BLOOD / Unknown 06/08/2024 8:27 PM EST 06/08/2024 8:28 PM EST Melida Valdes MD POINT OF CARE TEST O NIKA Performing Organization Address City/[facility] Co de Phone Number [facility] [place] [address] * POC, GLUCOSE (06/08/2024 4:16 PM EST) Glucometer, POC 159 65 - 199 mg/dL 06/08/2024 4:16 PM EST [facility] Comment:Supplemental ranges: <140 mg/dL before meals <180 mg/dL all other times of the day. Blood CAPILLARY BLOOD / Unknown 06/08/2024 4:16 PM EST 06/08/2024 4:16 PM EST Melida Valdes MD POINT OF CARE TEST O NIKA Performing Organization Address [facility] Co de Phone Number [facility] [place] [address] * (ABNORMAL) POC, GLUCOSE (06/08/2024 12:35 PM EST) Glucometer, POC 226(H) 65 - 199 mg/dL 06/08/2024 12:35 PM EST [facility] Comment:Supplemental ranges: <140 mg/dL before meals <180 mg/dL all other times of the day. Blood CAPILLARY BLOOD / Unknown 06/08/2024 12:35 PM EST 06/08/2024 12:35 PM EST Melida Valdes MD POINT OF CARE TEST O NIKA Performing Organization Address City/[facility]/ZIP Co de Phone Number [facility] [place] [address] * POC, GLUCOSE (06/08/2024 8:10 AM EST) Glucometer, POC 190 65 - 199 mg/dL 06/08/2024 8:14 AM EST [facility] Comment:Supplemental ranges: <140 mg/dL before meals <180 mg/dL all other times of the day. Blood CAPILLARY BLOOD / Unknown 06/08/2024 8:10 AM EST 06/08/2024 8:14 AM EST Melida Valdes MD POINT OF CARE TEST O NIKA Performing Organization Address City/[facility]/ZIP Co de Phone Number [facility] [place] [address] * POC, GLUCOSE (06/08/2024 4:09 AM EST) Glucometer, POC 151 65 - 199 mg/dL 06/08/2024 4:10 AM EST [facility] Comment:Supplemental ranges: <140 mg/dL before meals <180 mg/dL all other times of the day. Blood CAPILLARY BLOOD / Unknown 06/08/2024 4:09 AM EST 06/08/2024 4:10 AM EST Melida Valdes MD POINT OF CARE TEST Abimael MAHER Performing Organization Address City/[facility]/ZIP Co de Phone Number [facility] [place] [address] * Heparin (unfractionated) Level (06/08/2024 3:21 AM [...] HEMATOLOGY ORDERABLE S [facility] [place] [address] * (ABNORMAL) CBC (with Diff) (06/08/2024 3:21 AM EST) White Blood Cell 9.92(H) 4.00 - 9.50 x10(3)/mc L 06/08/2024 3:34 AM [facility] Red Blood Cell 5.09 4.58 - [...] MD HEMATOLOGY ORDERABLE S Performing Organization Address [facility] Co de Phone Number [facility] [place] [address] * Magnesium (06/08/2024 3:21 AM EST) Magnesium 0.84 0.69 - 1.07 mMol/L 06/08/2024 3:59 AM [facility] Blood VENOUS BLOOD SPECIMEN / Unknown Venipuncture / Unknown 06/08/2024 3:21 AM EST 06/08/2024 3:27 AM EST Shahnaz Scanlon MD CHEMISTRY ORDERABLES Performing Organization Address [facility] Co de Phone Number [facility] [place] [address] * (ABNORMAL) Basic Metabolic Panel (06/08/2024 3:21 [...] MD CHEMISTRY ORDERABLES [facility] [place] [address] * POC, GLUCOSE (06/07/2024 11:57 PM EST) Glucometer, POC 188 65 - 199 mg/dL 06/07/2024 11:57 PM EST [facility] Comment:Supplemental ranges: <140 mg/dL before meals <180 mg/dL all other times of the day. Blood CAPILLARY BLOOD / Unknown 06/07/2024 11:57 PM EST 06/07/2024 11:58 PM EST Melida Valdes MD POINT OF CARE TEST O NIKA Performing Organization Address [facility] Co de Phone Number [facility] [place] [address] * POC, GLUCOSE (06/07/2024 8:05 PM EST) Glucometer, POC 118 65 - 199 mg/dL 06/07/2024 8:06 PM EST [facility] Comment:Supplemental ranges: <140 mg/dL before meals <180 mg/dL all other times of the day. Blood CAPILLARY BLOOD / Unknown 06/07/2024 8:05 PM EST 06/07/2024 8:06 PM EST Melida Valdes MD POINT OF CARE TEST Abimael MAHER Performing Organization Address [facility] Co de Phone Number [facility] [place] [address] * Potassium (06/07/2024 5:22 PM EST) Potassium 4.6 3.5 - 5.0 mMol/L 06/07/2024 5:59 PM EST [facility] Blood VENOUS BLOOD SPECIMEN / Unknown Venipuncture / Unknown 06/07/2024 5:22 PM EST 06/07/2024 5:26 PM EST Shahnaz Scanlon MD CHEMISTRY ORDERABLES Performing Organization Address City/[facility] Co de Phone Number [facility] [place] [address] * POC, GLUCOSE (06/07/2024 4:31 PM EST) Glucometer, POC 174 65 - 199 mg/dL 06/07/2024 4:34 PM EST [facility] Comment:Supplemental ranges: <140 mg/dL before meals <180 mg/dL all other times of the day. Blood CAPILLARY BLOOD / Unknown 06/07/2024 4:31 PM EST 06/07/2024 4:34 PM EST Melida Valdes MD POINT OF CARE TEST O RDERABLES [facility] [place] [address] * MRI Cardiac Morphology Function wwo Contrast (06/07/2024 1:10 PM EST) WORKSTATION ID [id number] DH RAD Anatomical Region Laterality Modality Magnetic [...] - Mildly dilated left ventricle size with [id number] decreased LV systolic function. ??LV ejection fraction [...] who have questions please contact the health cardiac care unit nurse that requested your imaging first. ? Electronically signed by: Kriss Alonzo MD, [facility] ([phone]), at 06/07/2024 2:41 PM Narrative 06/07/2024 2:41 [...] VENTRICLE: Mildly dilated left ventricle size with rcvlixhm-uh-njdrqyeo decreased LV systolic function. ??LV ejection fraction [...] VENTRICLE: Mildly dilated left ventricle size with [id number] decreasedLV systolic function. LV ejection fraction is [...] - Mildly dilated left ventricle size with qexzbgne-fy-wtospxxg decreasedLV systolic function. LV ejection fraction is [...] patients who have questions please contactthe health cardiac care unit nurse that requested your imaging first. Electronically signed by: Kriss Alonzo MD, [facility]([phone]), at 06/07/2024 2:41 PM Delroy Fofana MD IMG MRI ORDERABLES * (ABNORMAL) POC, GLUCOSE (06/07/2024 11:05 AM EST) [facility] Glucometer, POC 221(H) 65 - 199 mg/dL 06/07/2024 11:06 AM EST [facility] Comment:Supplemental ranges: <140 mg/dL before meals <180 mg/dL all other times of the day. Blood CAPILLARY BLOOD / Unknown 06/07/2024 11:05 AM EST 06/07/2024 11:06 AM EST Melida Valdes MD POINT OF CARE TEST O NIKA Performing Organization Address City/[facility]/ZIP Co de Phone Number [facility] [place] [address] * (ABNORMAL) POC, GLUCOSE (06/07/2024 11:03 AM EST) Glucometer, POC 250(H) 65 - 199 mg/dL 06/07/2024 11:04 AM EST [facility] Comment:Supplemental ranges: <140 mg/dL before meals <180 mg/dL all other times of the day. Blood CAPILLARY BLOOD / Unknown 06/07/2024 11:03 AM EST 06/07/2024 11:04 AM EST Melida Valdes MD POINT OF CARE TEST O NIKA Performing Organization Address City/[facility]/ZIP Co de Phone Number [facility] [place] [address] * Potassium (06/07/2024 9:44 AM EST) Potassium 4.7 3.5 - 5.0 mMol/L 06/07/2024 10:23 AM EST [facility] Blood VENOUS BLOOD SPECIMEN / Unknown Venipuncture / Unknown 06/07/2024 9:44 AM EST 06/07/2024 9:57 AM EST Shahnaz Scanlon MD CHEMISTRY ORDERABLES Performing Organization Address City/[facility]/ZIP Co de Phone Number [facility] [place] [address] * POC, GLUCOSE (06/07/2024 7:45 AM EST) Glucometer, POC 175 65 - 199 mg/dL 06/07/2024 7:45 AM EST [facility] Comment:Supplemental ranges: <140 mg/dL before meals <180 mg/dL all other times of the day. Blood CAPILLARY BLOOD / Unknown 06/07/2024 7:45 AM EST 06/07/2024 7:46 AM EST Melida Valdes MD POINT OF CARE TEST O RDERABLES [facility] [place] [address] * XR Chest PA & Lateral (Generic) (06/07/2024 7:03 AM EST) WORKSTATION ID [id number] RAD Anatomical Region Laterality Modality Chest N/A [...] who have questions please contact the health cardiac care unit nurse that requested your imaging first. ? Electronically signed by: Stuart Aponte MD, [facility] ??([phone]), at 06/07/2024 10:45 AM Narrative 06/07/2024 10:45 [...] patients who have questions please contactthe health cardiac care unit nurse that requested your imaging first. Electronically signed by: Stuart Aponte MD, [facility]([phone]), at 06/07/2024 10:45 AM Shahnaz Scanlon MD IMG DX ORDERABLES * POC, GLUCOSE (06/07/2024 4:25 AM EST) [facility] Glucometer, POC 127 65 - 199 mg/dL 06/07/2024 4:26 AM EST [facility] Comment:Supplemental ranges: <140 mg/dL before meals <180 mg/dL all other times of the day. Blood CAPILLARY BLOOD / Unknown 06/07/2024 4:25 AM EST 06/07/2024 4:26 AM EST Melida Valdes MD POINT OF CARE TEST O RDERABLES [facility] [place] [address] * Heparin (unfractionated) Level (06/07/2024 2:41 AM [...] MD HEMATOLOGY ORDERABLE S Performing Organization Address City/State/[facility] Co de Phone Number [facility] [place] [address] * (ABNORMAL) CBC (with Diff) (06/07/2024 2:41 AM EST) [facility] White Blood Cell 10.06(H) 4.00 [...] HEMATOLOGY ORDERABLE S [facility] [place] [address] * Magnesium (06/07/2024 2:41 AM EST) Magnesium 0.92 0.69 - 1.07 mMol/L 06/07/2024 3:25 AM EST [facility] Blood VENOUS BLOOD SPECIMEN / Unknown Venipuncture / Unknown 06/07/2024 2:41 AM EST 06/07/2024 2:51 AM EST Shahnaz Scanlon MD CHEMISTRY ORDERABLES [facility] [place] [address] * (ABNORMAL) Basic Metabolic Panel (06/07/2024 2:41 [...] Scanlon MD CHEMISTRY ORDERABLES Performing Organization Address [facility] Co de Phone Number [facility] [place] [address] * POC, GLUCOSE (06/07/2024 12:08 AM EST) Glucometer, POC 182 65 - 199 mg/dL 06/07/2024 12:09 AM EST [facility] Comment:Supplemental ranges: <140 mg/dL before meals <180 mg/dL all other times of the day. Blood CAPILLARY BLOOD / Unknown 06/07/2024 12:08 AM EST 06/07/2024 12:09 AM EST Melida Valdes MD POINT OF CARE TEST O NIKA Performing Organization Address [facility] de Phone Number [facility] [place] [address] * POC, GLUCOSE (06/06/2024 8:18 PM EST) Glucometer, POC 143 65 - 199 mg/dL 06/06/2024 8:19 PM EST [facility] Comment:Supplemental ranges: <140 mg/dL before meals <180 mg/dL all other times of the day. Blood CAPILLARY BLOOD / Unknown 06/06/2024 8:18 PM EST 06/06/2024 8:19 PM EST Melida Valdes MD POINT OF CARE TEST O NIKA Performing Organization Address [facility] Co de Phone Number [facility] [place] [address] * POC, GLUCOSE (06/06/2024 3:39 PM EST) Glucometer, POC 147 65 - 199 mg/dL 06/06/2024 3:40 PM EST [facility] Comment:Supplemental ranges: <140 mg/dL before meals <180 mg/dL all other times of the day. Blood CAPILLARY BLOOD / Unknown 06/06/2024 3:39 PM EST 06/06/2024 3:40 PM EST Melida Valdes MD POINT OF CARE TEST O NIKA Performing Organization Address City/[facility]/ZIP Co de Phone Number [facility] [place] [address] * Potassium (06/06/2024 2:37 PM EST) Potassium 4.3 3.5 - 5.0 mMol/L 06/06/2024 3:01 PM EST [facility] Blood VENOUS BLOOD SPECIMEN / Unknown Venipuncture / Unknown 06/06/2024 2:37 PM EST 06/06/2024 2:42 PM EST Shahnaz Scanlon MD CHEMISTRY ORDERABLES Performing Organization Address [facility] Co de Phone Number [facility] [place] [address] * (ABNORMAL) POC, GLUCOSE (06/06/2024 1:39 PM EST) Glucometer, POC 317(H) 65 - 199 mg/dL 06/06/2024 1:40 PM EST [facility] Comment:Supplemental ranges: <140 mg/dL before meals <180 mg/dL all other times of the day. Blood CAPILLARY BLOOD / Unknown 06/06/2024 1:39 PM EST 06/06/2024 1:41 PM EST Melida Valdes MD POINT OF CARE TEST O NIKA Performing Organization Address City/[facility]/ZIP Co de Phone Number [facility] [place] [address] * (ABNORMAL) POC, GLUCOSE (06/06/2024 11:34 AM EST) Glucometer, POC 264(H) 65 - 199 mg/dL 06/06/2024 11:35 AM EST [facility] Comment:Supplemental ranges: <140 mg/dL before meals <180 mg/dL all other times of the day. Blood CAPILLARY BLOOD / Unknown 06/06/2024 11:34 AM EST 06/06/2024 11:35 AM EST Melida Valdes MD POINT OF CARE TEST O RDBECKIE Performing Organization Address City/[facility]/ZIP Co de Phone Number [facility] [place] [address] * Potassium (06/06/2024 10:17 AM EST) Potassium 4.3 3.5 - 5.0 mMol/L 06/06/2024 10:46 AM EST [facility] Blood VENOUS BLOOD SPECIMEN / Unknown Venipuncture / Unknown 06/06/2024 10:17 AM EST 06/06/2024 10:22 AM EST Shahnaz Scanlon MD CHEMISTRY ORDERABLES Performing Organization Address City/[facility]/ZIP Co de Phone Number [facility] [place] [address] * POC, GLUCOSE (06/06/2024 7:57 AM EST) Glucometer, POC 195 65 - 199 mg/dL 06/06/2024 8:03 AM EST [facility] Comment:Supplemental ranges: <140 mg/dL before meals <180 mg/dL all other times of the day. Blood CAPILLARY BLOOD / Unknown 06/06/2024 7:57 AM EST 06/06/2024 8:03 AM EST Melida Valdes MD POINT OF CARE TEST O NIKA Performing Organization Address City/[facility]/ZIP Co de Phone Number [facility] [place] [address] * POC, GLUCOSE (06/06/2024 6:53 AM EST) Glucometer, POC 187 65 - 199 mg/dL 06/06/2024 6:53 AM EST [facility] Comment:Supplemental ranges: <140 mg/dL before meals <180 mg/dL all other times of the day. Blood CAPILLARY BLOOD / Unknown 06/06/2024 6:53 AM EST 06/06/2024 6:54 AM EST Melida Valdes MD POINT OF CARE TEST O RDERABLES [facility] [place] [address] * (ABNORMAL) Hemoglobin A1c (06/06/2024 3:33 AM EST) Pathologist [facility] Hemoglobin A1c 7.1(H) 4.3 - 5.6 % [...] red blood cell turnover may not be parts counter representative of glycemic control. Reference Interval: 4.3 - 5.6% 5.7 - 6.4%: Consistent with prediabetes >=6.5%: Consistent with diagnosis of diabetes mellitus Estimated Average Glucose 157 mg/dL 06/06/2024 1:01 PM EST [facility] Blood VENOUS BLOOD SPECIMEN / Unknown Venipuncture / Unknown 06/06/2024 3:33 AM EST 06/06/2024 3:48 AM EST Alejandra Baumann APRN CHEMISTRY ORDERAB LES [facility] [place] [address] * Heparin (unfractionated) Level (06/06/2024 3:33 AM [...] MD HEMATOLOGY ORDERABLE S Performing Organization Address City/State/[facility] Co de Phone Number [facility] [place] [address] * (ABNORMAL) CBC (with Diff) (06/06/2024 3:33 [...] MD HEMATOLOGY ORDERABLE S Performing Organization Address City/[facility]/ZIP Co de Phone Number [facility] [place] [address] * Magnesium (06/06/2024 3:33 AM EST) Magnesium 0.92 0.69 - 1.07 mMol/L 06/06/2024 4:17 AM [facility] Blood VENOUS BLOOD SPECIMEN / Unknown Venipuncture / Unknown 06/06/2024 3:33 AM EST 06/06/2024 3:47 AM EST Shahnaz Scanlon MD CHEMISTRY ORDERABLES [facility] [place] [address] * (ABNORMAL) Basic Metabolic Panel (06/06/2024 3:33 [...] MD CHEMISTRY ORDERABLES [facility] [place] [address] * (ABNORMAL) POC, GLUCOSE (06/05/2024 10:31 PM EDT) Glucometer, POC 238(H) 65 - 199 mg/dL 06/05/2024 10:31 PM EDT [facility] Comment:Supplemental ranges: <140 mg/dL before meals <180 mg/dL all other times of the day. Blood CAPILLARY BLOOD / Unknown 06/05/2024 10:31 PM EDT 06/05/2024 10:31 PM EDT Melida Valdes MD POINT OF CARE TEST O NIKA Performing Organization Address [facility] Co de Phone Number [facility] [place] [address] * (ABNORMAL) POC, GLUCOSE (06/05/2024 4:22 PM EDT) Glucometer, POC 205(H) 65 - 199 mg/dL 06/05/2024 4:22 PM EDT [facility] Comment:Supplemental ranges: <140 mg/dL before meals <180 mg/dL all other times of the day. Blood CAPILLARY BLOOD / Unknown 06/05/2024 4:22 PM EDT 06/05/2024 4:23 PM EDT Melida Valdes MD POINT OF CARE TEST O RALPHERAPIETER Performing Organization Address City/[facility]/ZIP Co de Phone Number [facility] [place] [address] * (ABNORMAL) POC, GLUCOSE (06/05/2024 11:34 AM EDT) Glucometer, POC 211(H) 65 - 199 mg/dL 06/05/2024 11:34 AM EDT [facility] Comment:Supplemental ranges: <140 mg/dL before meals <180 mg/dL all other times of the day. Blood CAPILLARY BLOOD / Unknown 06/05/2024 11:34 AM EDT 06/05/2024 11:34 AM EDT Melida Valdes MD POINT OF CARE TEST O RDERABLES Performing Organization Address City/[facility]/ZIP Co de Phone Number [facility] [place] [address] * Potassium (06/05/2024 9:04 AM EDT) [facility] Potassium 4.3 3.5 - 5.0 mMol/L 06/05/2024 9:50 AM EDT [facility] Blood VENOUS BLOOD SPECIMEN / Unknown Venipuncture / Unknown 06/05/2024 9:04 AM EDT 06/05/2024 9:21 AM EDT Shahnaz Scanlon MD CHEMISTRY ORDERABLES Performing Organization Address [facility] Co de Phone Number [facility] [place] [address] * POC, GLUCOSE (06/05/2024 7:27 AM EDT) [facility] Glucometer, POC 166 65 - 199 mg/dL 06/05/2024 7:27 AM EDT [facility] Comment:Supplemental ranges: <140 mg/dL before meals <180 mg/dL all other times of the day. Blood CAPILLARY BLOOD / Unknown 06/05/2024 7:27 AM EDT 06/05/2024 7:27 AM EDT Melida Valdes MD POINT OF CARE TEST O NIKA Performing Organization Address [facility] Co de Phone Number [facility] [place] [address] * Heparin (unfractionated) Level (06/05/2024 3:44 AM EDT) [facility] UF Heparin 0.44 IU/mL 06/05/2024 [...] MD HEMATOLOGY ORDERABLE S Performing Organization Address City/State/[facility] Co de Phone Number [facility] [place] [address] * (ABNORMAL) CBC (with Diff) (06/05/2024 3:44 [...] MD HEMATOLOGY ORDERABLE S Performing Organization Address City/[facility]/ZIP Co de Phone Number [facility] [place] [address] * Magnesium (06/05/2024 3:44 AM EDT) Magnesium 0.92 0.69 - 1.07 mMol/L 06/05/2024 4:20 AM EDT [facility] Blood VENOUS BLOOD SPECIMEN / Unknown Venipuncture / Unknown 06/05/2024 3:44 AM EDT 06/05/2024 3:50 AM EDT Shahnaz Scanlon MD CHEMISTRY ORDERABLES [facility] [place] [address] * (ABNORMAL) Basic Metabolic Panel (06/05/2024 3:44 [...] MD CHEMISTRY ORDERABLES [facility] [place] [address] * Potassium (06/04/2024 10:34 PM EDT) Potassium 3.7 3.5 - 5.0 mMol/L 06/04/2024 11:03 PM EDT [facility] Blood VENOUS BLOOD SPECIMEN / Unknown Venipuncture / Unknown 06/04/2024 10:34 PM EDT 06/04/2024 10:39 PM EDT Shahnaz Scanlon MD CHEMISTRY ORDERABLES [facility] [place] [address] * POC, GLUCOSE (06/04/2024 7:43 PM EDT) Glucometer, POC 175 65 - 199 mg/dL 06/04/2024 7:43 PM EDT [facility] Comment:Supplemental ranges: <140 mg/dL before meals <180 mg/dL all other times of the day. Blood CAPILLARY BLOOD / Unknown 06/04/2024 7:43 PM EDT 06/04/2024 7:43 PM EDT Melida Valdes MD POINT OF CARE TEST O RDERABLES [facility] [place] [address] * Potassium (06/04/2024 4:35 PM EDT) Potassium 4.0 3.5 - 5.0 mMol/L 06/04/2024 5:32 PM EDT [facility] Blood VENOUS BLOOD SPECIMEN / Unknown Venipuncture / Unknown 06/04/2024 4:35 PM EDT 06/04/2024 4:40 PM EDT Shahnaz Scanlon MD CHEMISTRY ORDERABLES [facility] [place] [address] * POC, GLUCOSE (06/04/2024 3:26 PM EDT) Glucometer, POC 154 65 - 199 mg/dL 06/04/2024 3:26 PM EDT [facility] Comment:Supplemental ranges: <140 mg/dL before meals <180 mg/dL all other times of the day. Blood CAPILLARY BLOOD / Unknown 06/04/2024 3:26 PM EDT 06/04/2024 3:27 PM EDT Melida Valdes MD POINT OF CARE TEST O RDERABLES Performing Organization Address City/[facility]/ZIP Co de Phone Number [facility] [place] [address] * POC, GLUCOSE (06/04/2024 11:09 AM EDT) Glucometer, POC 188 65 - 199 mg/dL 06/04/2024 11:09 AM EDT [facility] Comment:Supplemental ranges: <140 mg/dL before meals <180 mg/dL all other times of the day. Blood CAPILLARY BLOOD / Unknown 06/04/2024 11:09 AM EDT 06/04/2024 11:09 AM EDT Delroy Fofana MD POINT OF CARE TEST ORDERABLES Performing Organization Address City/[facility]/ZIP Co de Phone Number [facility] [place] [address] * Heparin (unfractionated) Level (06/04/2024 10:41 AM [...] MD HEMATOLOGY ORDERABLE S Performing Organization Address City/[facility]/ZIP Co de Phone Number [facility] [place] [address] * Potassium (06/04/2024 10:41 AM EDT) Potassium 4.0 3.5 - 5.0 mMol/L 06/04/2024 11:11 AM EDT [facility] Blood VENOUS BLOOD SPECIMEN / Unknown Venipuncture / Unknown 06/04/2024 10:41 AM EDT 06/04/2024 10:46 AM EDT Shahnaz Scanlon MD CHEMISTRY ORDERABLES Performing Organization Address [facility] Co de Phone Number [facility] [place] [address] * POC, GLUCOSE (06/04/2024 7:11 AM EDT) Glucometer, POC 182 65 - 199 mg/dL 06/04/2024 7:12 AM EDT [facility] Comment:Supplemental ranges: <140 mg/dL before meals <180 mg/dL all other times of the day. Blood CAPILLARY BLOOD / Unknown 06/04/2024 7:11 AM EDT 06/04/2024 7:12 AM EDT Delroy Foafna MD POINT OF CARE TEST ORDERABLES Performing Organization Address [facility] Co de Phone Number [facility] [place] [address] * Heparin (unfractionated) Level (06/04/2024 4:38 AM [...] MD HEMATOLOGY ORDERABLE S Performing Organization Address [facility]/ZIP Co de Phone Number [facility] [place] [address] * (ABNORMAL) CBC (with Diff) (06/04/2024 4:38 AM EDT) White Blood Cell 11.45(H) 4.00 - 9.50 x10(3)/mc L 06/04/2024 5:12 AM EDT [facility] Red Blood Cell 5.35 4.58 - 5.54 x10(6)/mc L 06/04/2024 5:12 AM EDT [facility] Hemoglobin 16.0 13.7 - 16.5 g/dL 06/04/2024 5:12 AM [facility] Hematocrit 49.6(H) 40.5 - 48.5 % 06/04/2024 5:12 AM [facility] Mean Cell Volume 92.7 82.9 - 93.1 fL 06/04/2024 5:12 AM [facility] Mean Cell Hemoglobin 29.9 [...] HEMATOLOGY ORDERABLE S [facility] [place] [address] * Magnesium (06/04/2024 4:38 AM EDT) Magnesium 0.84 0.69 - 1.07 mMol/L 06/04/2024 5:35 AM EDT [facility] Blood VENOUS BLOOD SPECIMEN / Unknown Venipuncture / Unknown 06/04/2024 4:38 AM EDT 06/04/2024 5:07 AM EDT Shahnaz Scanlon MD CHEMISTRY ORDERABLES [facility] [place] [address] * (ABNORMAL) Basic Metabolic Panel (06/04/2024 4:38 [...] 98 - 107 mMol/L 06/04/2024 5:35 AM [facility] Carbon Dioxide 29 22 - 31 mMol/L 06/04/2024 5:35 AM [facility] Anion Gap 11 5 - 15 mMol/L 06/04/2024 5:35 AM [facility] Calcium 9.0 8.5 [...] Scanlon MD CHEMISTRY ORDERABLES Performing Organization Address [facility] Co de Phone Number [facility] [place] [address] * Heparin (unfractionated) Level (06/03/2024 8:58 PM [...] MD HEMATOLOGY ORDERABLE S Performing Organization Address [facility] Co de Phone Number [facility] [place] [address] * POC, GLUCOSE (06/03/2024 8:05 PM EDT) Glucometer, POC 136 65 - 199 mg/dL 06/03/2024 8:05 PM EDT [facility] Comment:Supplemental ranges: <140 mg/dL before meals <180 mg/dL all other times of the day. Blood CAPILLARY BLOOD / Unknown 06/03/2024 8:05 PM EDT 06/03/2024 8:05 PM EDT Delroy Fofana MD POINT OF CARE TEST ORDERABLES Performing Organization Address [facility] Co de Phone Number [facility] [place] [address] * POC, GLUCOSE (06/03/2024 5:48 PM EDT) Glucometer, POC 191 65 - 199 mg/dL 06/03/2024 5:48 PM EDT [facility] Comment:Supplemental ranges: <140 mg/dL before meals <180 mg/dL all other times of the day. Blood CAPILLARY BLOOD / Unknown 06/03/2024 5:48 PM EDT 06/03/2024 5:49 PM EDT Delroy Fofana MD POINT OF CARE TEST ORDERABLES Performing Organization Address City/[facility] Co de Phone Number [facility] [place] [address] * CT Chest wo Contrast (Generic) (06/03/2024 4:33 PM EDT) WORKSTATION ID [id number] DH RAD Anatomical Region Laterality Modality Chest Computed Tomogra phy Impressions 06/03/2024 4:47 PM EDT Cardiomegaly. Biventricular ICD leads in place. Thank you for letting us participate in the care of this patient. ??If you are a health care provider and have any questions regarding this report, please contact the number below. ??For patients who have questions please contact the health cardiac care unit nurse that requested your imaging first. ? Electronically signed by: Stuart Aponte MD, [facility] ??([phone]), at 06/03/2024 4:47 PM Narrative 06/03/2024 4:47 [...] patients who have questions please contactthe health cardiac care unit nurse that requested your imaging first. Electronically signed by: Stuart Aponte MD, [facility]([phone]), at 06/03/2024 4:47 PM Bobby Loja MD IMG CT ORDERABLES * Carotid Duplex, Bilateral (06/03/2024 2:19 PM EDT) VB Text Report Department: Vascular Surgery Lab Patient: [id number] (GEORGE MEHTA) CPT: 12371 Referring Physician: BOBBY LOJA ?? Phone: Indications: [...] HEMATOLOGY ORDERABLE S [facility] [place] [address] * POC, GLUCOSE (06/03/2024 11:14 AM EDT) Glucometer, POC 166 65 - 199 mg/dL 06/03/2024 11:14 AM EDT [facility] Comment:Supplemental ranges: <140 mg/dL before meals <180 mg/dL all other times of the day. Blood CAPILLARY BLOOD / Unknown 06/03/2024 11:14 AM EDT 06/03/2024 11:14 AM EDT Delroy Fofana MD POINT OF CARE TEST ORDERABLES [facility] [place] [address] * (ABNORMAL) Troponin-T, High Sensitivity 3 Hour [...] can be found in the [facility] Test Catalog Troponin - [email or web address].[email or web address]/catalogs/565/files/94519 Reference: Fourth [place] Definition of Myocardial Infarction. Journal of the [place] [employer] 2018;72:0474-5406 Troponin-T, HS 3 hr delta 06/03/2024 10:50 AM EDT [facility] Comment:Delta troponin value not calculated, sample collected outside of delta calculation time limit. Blood VENOUS BLOOD SPECIMEN / Unknown IP Care Team Draw / Unknown 06/03/2024 10:06 AM EDT 06/03/2024 10:15 AM EDT Delroy Fofana MD CHEMISTRY ORDERABLE S [facility] [place] [address] * ECHO COMPLETE W CONTRAST (06/03/2024 8:46 AM EDT) Anatomical Region Laterality Modality Cardiac Other 06/03/2024 6:52 AM EDT Narrative 06/03/2024 10:32 AM EDT [address] [place] [id number] ? Echocardiogram Report Name: GEORGE MEHTA Raad ?Study Date: 06/03/2024 06:52 AM : 1955 ? Height: 168 cm ? Account: [id number] Age: 69 yrs ? Weight: 102 kg [...] fellow performed study of today's date). Procedure Complete-[id number]. Image enhancement Optison was used for left [...] Note Jonnie Jordan MD - 06/03/2024 [address] [place] [address] Echocardiogram Report Name: GEORGE MEHTA Study Date: 406:52 AM : 1955 Height: 168 cm Account: [id number] Age: 69 yrs Weight: 102 kg Gender: [...] a fellow performed study oftoday's date). Procedure Complete-16452. Image enhancement Optison was used for left [...] can be found in the [facility] Test Catalog Troponin - https://[email or web address]/catalogs/565/files/14468 Reference: Fourth [place] Definition of Myocardial Infarction. Journal of the [employer] 2018;72:4289-8213 Troponin-T, HS 1 hr delta 5 ng/L [...] CHEMISTRY ORDERABLE S [facility] [place] [address] * POC, GLUCOSE (06/03/2024 7:54 AM EDT) Glucometer, POC 195 65 - 199 mg/dL 06/03/2024 7:55 AM EDT [facility] Comment:Supplemental ranges: <140 mg/dL before meals <180 mg/dL all other times of the day. Blood CAPILLARY BLOOD / Unknown 06/03/2024 7:54 AM EDT 06/03/2024 7:55 AM EDT Nuha Rojo MD POINT OF CARE TEST ORDERABLES Performing Organization Address City/[facility]/ZIP Co de Phone Number [facility] [place] [address] * (ABNORMAL) Troponin-T, High Sensitivity (06/03/2024 7:39 [...] can be found in the [facility] Test Catalog Troponin - [email or web address].testcatalog.org/catalogs/565/files/47002 Reference: Fourth [place] Definition of Myocardial Infarction. Journal of the [employer] 2018;72:1035-5170 Blood VENOUS BLOOD SPECIMEN / Unknown IP Care Team Draw / Unknown 06/03/2024 7:39 AM EDT 06/03/2024 7:48 AM EDT Delroy Fofana MD CHEMISTRY ORDERABLE S Performing Organization Address City/[facility]/ZIP Co de Phone Number [facility] [place] [address] * (ABNORMAL) Troponin-T, High Sensitivity 3 Hour [...] can be found in the [facility] Test Catalog Troponin - https://[facility].testcatalog.org/catalogs/565/files/58653 Reference: Fourth [place] Definition of Myocardial Infarction. Journal of the [employer] 2018;72:8924-7737 Troponin-T, HS 3 hr delta 46 ng/L [...] MD CHEMISTRY ORDERABLES [facility] [place] [address] * (ABNORMAL) Troponin-T, High Sensitivity 1 Hour [...] can be found in the [facility] Test Catalog Troponin - https://[email or web address]/catalogs/565/files/61549 Reference: Fourth [place] Definition of Myocardial Infarction. Journal of the [employer] 2018;72:4917-6582 Troponin-T, HS 1 hr delta 10 ng/L [...] MD CHEMISTRY ORDERABLES [facility] [place] [address] * XR Chest One View (06/03/2024 2:41 AM EDT) WORKSTATION ID [id number] RAD Anatomical Region Laterality Modality Chest N/A Digital Radiogra phy Impressions 06/03/2024 3:06 AM EDT No radiographically evident acute cardiopulmonary process. Thank you for letting us participate in the care of this patient. ??If you are a health care provider and have any questions regarding this report, please contact the number below. ??For patients who have questions please contact the health cardiac care unit nurse that requested your imaging first. ? Electronically signed by: Corazon Mauro MD, [facility] ([phone]), at 06/03/2024 3:06 AM Narrative 06/03/2024 3:06 [...] patients who have questions please contactthe health cardiac care unit nurse that requested your imaging first. Electronically signed by: Corazon Mauro MD, [facility]([phone]), at 06/03/2024 3:06 AM Shahnaz Scanlon MD IMG DX ORDERABLES * Heparin (unfractionated) Level (06/03/2024 2:13 AM EDT) Pathologist [facility] UF Heparin 0.56 IU/mL 06/03/2024 4:13 AM [...] HEMATOLOGY ORDERABLE S [facility] [place] [address] * (ABNORMAL) Troponin-T, High Sensitivity (06/03/2024 2:13 AM EDT) Pathologist [facility] Troponin-T, High Sensitivity Initial 208(H) <=22 ng/L [...] can be found in the [facility] Test Catalog Troponin - https://[email or web address]/catalogs/565/files/93979 Reference: Fourth [place] Definition of Myocardial Infarction. Journal of the [place] [employer] 2018;72:2307-4406 Blood VENOUS BLOOD SPECIMEN / Unknown IP Care Team Draw / Unknown 06/03/2024 2:13 AM EDT 06/03/2024 2:32 AM EDT Shahnaz Scanlon MD CHEMISTRY ORDERABLES [facility] [place] [address] * Magnesium (06/03/2024 2:13 AM EDT) Pathologist [facility] Magnesium 0.86 0.69 - 1.07 mMol/L 06/03/2024 3:02 AM EDT [facility] Blood VENOUS BLOOD SPECIMEN / Unknown IP Care Team Draw / Unknown 06/03/2024 2:13 AM EDT 06/03/2024 2:32 AM EDT Shahnaz Scanlon MD CHEMISTRY ORDERABLES [facility] [place] [address] * Basic Metabolic Panel (06/03/2024 2:13 AM [...] MD CHEMISTRY ORDERABLES [facility] [place] [address] * (ABNORMAL) CBC (with Diff) (06/03/2024 2:13 AM EDT) White Blood Cell 11.16(H) 4.00 - 9.50 x10(3)/mc L 06/03/2024 2:37 AM [facility] Red Blood Cell 5.09 4.58 - 5.54 x10(6)/mc L 06/03/2024 2:37 AM [facility] Hemoglobin 15.0 13.7 - 16.5 g/dL 06/03/2024 2:37 AM [facility] Hematocrit 47.4 40.5 - [...] HEMATOLOGY ORDERABLE S [facility] [place] [address] * Lipid Panel (Reflex Direct LDL) (06/03/2024 2:13 AM EDT) Cholesterol, Total 76 mg/dL 06/03/2024 3:02 AM [facility] Comment: Desirable: < 200 mg/dL Borderline High: 200 - 239 mg/dL High: > or = 240 mg/dL Triglyceride 75 mg/dL 06/03/2024 3:02 AM [facility] Comment: Normal: <150 mg/dL [...] ACC/AHA Guidelines (most recently Bruce et al. [facility] 05/07/22): * For individuals with atherosclerotic [...] Scanlon MD CHEMISTRY ORDERABLES Performing Organization Address [facility] Phone Number [facility] [place] [address] * (ABNORMAL) APTT (06/03/2024 2:13 AM EDT) [...] MD HEMATOLOGY ORDERABLE S Performing Organization Address [facility] Phone Number [facility] [place] [address] * Prothrombin Time (06/03/2024 2:13 AM EDT) [...] MD HEMATOLOGY ORDERABLE S Performing Organization Address City/[facility]/ZIP Co de Phone Number [facility] [place] [address] * Hepatic Function Panel (06/03/2024 2:13 AM [...] Scanlon MD CHEMISTRY ORDERABLES Performing Organization Address City/[facility]/ZIP Co de Phone Number [facility] [place] [address] * (ABNORMAL) pro-Brain Natriuretic Peptide (06/03/2024 2:13 AM EDT) NT-proBNP 1,628(H) <=124 pg/mL 06/03/2024 4:15 AM EDT [facility] Blood VENOUS BLOOD SPECIMEN / Unknown IP Care Team Draw / Unknown 06/03/2024 2:13 AM EDT 06/03/2024 2:32 AM EDT Shahnaz Scanlon MD CHEMISTRY ORDERABLES [facility] [place] [address] * Phosphorus (06/03/2024 2:13 AM EDT) Pathologist [facility] Phosphorus 4.4 2.5 - 4.5 mg/dL 06/03/2024 3:02 AM EDT [facility] Blood VENOUS BLOOD SPECIMEN / Unknown IP Care Team Draw / Unknown 06/03/2024 2:13 AM EDT 06/03/2024 2:32 AM EDT Shahnaz Scanlon MD CHEMISTRY ORDERABLES [facility] [place] [address] * EKG 12 Lead (06/03/2024 1:45 AM EDT) Ventricular rate 63 BPM MUSE SYSTEM Atrial Rate 63 BPM MUSE SYSTEM P-R Interval 168 ms MUSE SYSTEM QRS Duration 96 ms MUSE SYSTEM Q-T Interval 400 ms MUSE SYSTEM QTC Calculated (Bezet) 409 ms MUSE SYSTEM Calculated P [place] 65 degrees MUSE SYSTEM Calculated R [place] 70 degrees MUSE SYSTEM Calculated T [place] -86 degrees MUSE SYSTEM INTERPRETATION Atrial-sensed ventricular-paced rhythm Abnormal ECG No previous ECGs available I personally reviewed the tracing and edited the fellows interpretation Confirmed by fellow Sunni Agudelo ([id number]) on 06/04/2024 3:55:40 PM Confirmed by MD Tamia, Stuart Perry ([id number]) on 06/05/2024 11:46:48 AM MUSE SYSTEM 06/03/2024 1:45 AM EDT 06/05/2024 11:46 AM EDT Shahnaz Scanlon MD ECG ORDERABLES MUSE SYSTEM * CARDIAC CATHETERIZATION (06/03/2024 12:42 AM EDT) Anatomical Region Laterality Modality Other Narrative 06/04/2024 2:22 PM EDT ?[facility] ? Cardiac Catheterization/Intervention Report ? Patient Name: Tyson, George L. ? Procedure Date: 06/02/2024 ? A #: [id number] ? Primary Physician: Nuha Shen I ? Case #: [id number] ? File Name: [id number] ? Catheterization Order Number: [id number] ? [facility] ? Final Report [place], [place] ? Patient Name: ? George L. Tyson ? ID#: ?[id number] ? : ?1955 ? Procedure Date: ? June 02, 2024 ? Case #: ? [id number] ? Room: ? 5 ? Case Physician: [...] was Emergent. 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 Cardiac Catheterization/Intervention Report Patient Name: George Mehta Procedure Date: 06/02/2024 A #: [id number] Primary Physician: Nuha Shen I Case #: [id number] File Name: [id number] Catheterization Order Number: [id number] [facility] FinalReport [place], [place] Patient Name: George Mehta ID#:[id number] :1955 Procedure Date: June 02, 2024 Case [...] was designated as ASA Class IV. The [facility] clinicalfrailty scale is 5: Mildly Frail. Diagnostic Tests: Electrocardiography: EKG was assessed by ECG. EKG was Abnormal. EKG showed STDeviation >= 0.5 mm. Medications Prior to Procedure: Sacubitril and Valsartan, Aspirin, Beta Erik, Statin and Thrombolytic (any). Indications for Diagnostic Cath: The priority of the diagnostic procedure was Emergent. 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 A total [id number] of Omnipaque were opened, 84cc of Omnipaque were administered fax15bc of Omnipaque were wasted. Radiation: Fluoro time [...] 3.5 guiding catheter and a 3.5 Fr [facility] 20 Mhz usingManual pullback. [...] 3.5 guiding catheter and a 3.5 Fr [facility] 20 Mhzusing Manual pullback. Imaging was successful. Indication: IVUS performed for pre intervention planning. Findings Pre-Intervention: scattered plaque, calcification and [id number] degrees calcification. Findings Post-Intervention: Stent not imaged [...] * POC, GLUCOSE (06/02/2024 11:31 PM EDT) [facility] Glucometer, POC 156 65 - 199 mg/dL 06/02/2024 11:31 PM EDT [facility] Comment:Supplemental ranges: <140 mg/dL before meals <180 mg/dL all other times of the day. 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 Give TN if unable to take PO, Routine Group [...] Routine documented in this encounter Care Teams Router Tender Relationship Specialty Start Date End Date Mauro Berumen MD [address] [place] [address] PCP - General Family Medicine 06/02/24 documented as of this encounter
== END 2024-10-01 23:59 | disposition home or self-care (01) ==
LOC: CR 10:11
PROVIDERS: PCP Family Medicine; Visit Provider Internal Medicine Cardiovascular Disease
DX: I25.10 Atherosclerotic heart disease of native coronary artery without angina pectoris (principal); Z95.0 Presence of cardiac pacemaker; Z51.89 Encounter for other specified aftercare
CPT/HCPCS: S9472

== ENCOUNTER 2024-10-06 08:46 | Outpatient (CLI) | payer MEDICARE, SELFPAY ==
--- NOTE | 2024-10-06 08:45 | RT.EKG_ITS ---
APPROVED REPORT Exam: Resting ECG Reason for Exam: CAD Patient Location: O HR:79 bpm ECG Measurements Heart Rate 79 AXIS ID 148 P 76 QRSd 115 QRS -26 QT 406 T 126 QTc 466 Conclusion A-V dual-paced complexes w/ some inhibition...other complexes also detected No further analysis attempted due to paced rhythm
== END 2024-10-06 08:47 | disposition home or self-care (01) ==
LOC: DI.CARD 08:47
PROVIDERS: PCP Family Medicine; Visit Provider Internal Medicine Cardiovascular Disease
DX: I21.29 ST elevation (STEMI) myocardial infarction involving other sites (principal); I25.10 Atherosclerotic heart disease of native coronary artery without angina pectoris
CPT/HCPCS: 93010

== ENCOUNTER → 2024-10-06 08:47 | Outpatient (BNVA) | payer MEDICARE, SELFPAY | PROVIDERS: PCP Family Medicine; Referring Provider Family Medicine; Visit Provider Internal Medicine Cardiovascular Disease | DX: Z95.810 Presence of automatic (implantable) cardiac defibrillator (principal) | CPT/HCPCS: 93005; 93284 ==

== ENCOUNTER → 2024-10-28 10:40 | Outpatient (BNVA) | payer MEDICARE, SELFPAY | PROVIDERS: PCP Family Medicine; Visit Provider Internal Medicine Cardiovascular Disease | DX: I25.10 Atherosclerotic heart disease of native coronary artery without angina pectoris (principal); I50.1 Left ventricular failure, unspecified; Z95.810 Presence of automatic (implantable) cardiac defibrillator | CPT/HCPCS: 99213 ==

== ENCOUNTER 2024-10-29 10:04 | Outpatient (RCR) | payer MEDICARE, SELFPAY ==
--- NOTE | 2024-10-15 10:30 | RT.EKG_ITS ---
APPROVED REPORT Exam: Resting ECG Reason for Exam: ? EKG changes Patient Location: O HR:80 bpm ECG Measurements Heart Rate 80 AXIS CA 126 P 101 QRSd 129 QRS 123 QT 405 T -62 QTc 468 Conclusion Atrial-ventricular dual-paced complexes...other complexes also detected No further analysis attempted due to paced rhythm
--- NOTE | 2024-10-22 10:15 | RT.EKG_ITS ---
APPROVED REPORT Exam: Resting ECG Reason for Exam: EKG changes Patient Location: O HR:80 bpm ECG Measurements Heart Rate 80 AXIS IN 116 P 82 QRSd 123 QRS 113 QT 414 T 254 QTc 478 Conclusion A-V dual-paced rhythm with some inhibition...atrial and/or vent inhibition No further analysis attempted due to paced rhythm
== END 2024-11-01 23:59 | disposition home or self-care (01) ==
LOC: CR 10:04
PROVIDERS: PCP Family Medicine; Visit Provider Internal Medicine Cardiovascular Disease
DX: I25.10 Atherosclerotic heart disease of native coronary artery without angina pectoris (principal); Z95.5 Presence of coronary angioplasty implant and graft; Z51.89 Encounter for other specified aftercare
CPT/HCPCS: S9472

== ENCOUNTER 2024-11-10 10:38 | Outpatient (RCR) | payer MEDICARE, SELFPAY | END 2024-12-01 23:59 | disposition home or self-care (01) | LOC: CR 10:38 | PROVIDERS: PCP Family Medicine; Visit Provider Internal Medicine Cardiovascular Disease | DX: I21.29 ST elevation (STEMI) myocardial infarction involving other sites (principal); Z95.5 Presence of coronary angioplasty implant and graft; I50.21 Acute systolic (congestive) heart failure; Z51.89 Encounter for other specified aftercare | CPT/HCPCS: S9472 ==

== ENCOUNTER 2024-12-08 14:24 | Outpatient (REF) | payer MEDICARE, SELFPAY ==
[2024-12-08 17:06] LABS: COMMENT (LAB VIEW ONLY) 59.05 mg/dL; Microalb ug/mg Crea 38.1 ug/mg Cr
== END 2024-12-08 14:25 | disposition home or self-care (01) ==
LOC: NCHCN 14:24
PROVIDERS: PCP Family Medicine; Visit Provider Family Medicine
DX: E11.9 Type 2 diabetes mellitus without complications (principal)
CPT/HCPCS: 82043; 82570

== ENCOUNTER → 2025-01-24 08:27 | Outpatient (BNVA) | payer MEDICARE, SELFPAY | PROVIDERS: PCP Family Medicine; Referring Provider Family Medicine; Visit Provider Podiatrist | DX: L60.3 Nail dystrophy (principal); B35.1 Tinea unguium; E11.51 Type 2 diabetes mellitus with diabetic peripheral angiopathy without gangrene; R09.89 Other specified symptoms and signs involving the circulatory and respiratory systems; R60.0 Localized edema; I83.93 Asymptomatic varicose veins of bilateral lower extremities; L65.9 Nonscarring hair loss, unspecified; R23.8 Other skin changes; L53.8 Other specified erythematous conditions; L60.2 Onychogryphosis; L60.8 Other nail disorders; L85.8 Other specified epidermal thickening | CPT/HCPCS: 11056; 11721 ==

== ENCOUNTER → 2025-03-03 10:34 | Outpatient (BNVA) | payer MEDICARE, SELFPAY | PROVIDERS: PCP Family Medicine; Referring Provider Family Medicine; Visit Provider Internal Medicine Cardiovascular Disease | DX: I50.1 Left ventricular failure, unspecified (principal); Z95.1 Presence of aortocoronary bypass graft; Z95.810 Presence of automatic (implantable) cardiac defibrillator | CPT/HCPCS: 99213; 93005 ==

== ENCOUNTER 2025-03-10 14:02 | Outpatient (REF) | payer MEDICARE, SELFPAY ==
[2025-03-10 13:53] LABS: Anion Gap 8.2 mmol/L (3-11); BUN 25 mg/dL (7-18); CO2 26.8 mmol/L (21.0-32.0); Calcium 9.2 mg/dL (8.5-10.1); Chloride 102 mmol/L (98-107); Estimated GFR 82.49 (mL/min/1.73m2); Glucose 151 mg/dL (74-106); LDL CHOLESTEROL 41 mg/dL (<100); Potassium 4.8 mmol/L (3.5-5.1); Sodium 137 mmol/L (136-145)
== END 2025-03-10 14:03 | disposition home or self-care (01) ==
LOC: NCHCN 14:02
PROVIDERS: PCP Family Medicine; Visit Provider Family Medicine
DX: I25.10 Atherosclerotic heart disease of native coronary artery without angina pectoris (principal)
CPT/HCPCS: 80048; 83721

== ENCOUNTER → 2025-04-20 13:26 | Outpatient (BNVA) | payer MEDICARE, SELFPAY | PROVIDERS: PCP Family Medicine; Referring Provider Family Medicine; Visit Provider Registered Nurse | DX: I25.2 Old myocardial infarction (principal); I95.9 Hypotension, unspecified; Z45.018 Encounter for adjustment and management of other part of cardiac pacemaker | CPT/HCPCS: 93281 ==

== ENCOUNTER 2025-06-03 09:49 | Day surgery (SDC) | payer MEDICARE, SELFPAY ==
[2025-06-03 10:15] VITALS: BP 122/69; PULSE 80; RESP 18; TEMP 36.4; O2SAT 95
[2025-06-03] MEDS: Tropicam./Phenyleph. (1/2.5%) 5 ML BTL OS ×3 (10:22→10:34)
--- NOTE | 2025-06-03 10:43 | W.ANESPRE ---
General Info Date of Service Date Performed: 06/03/25 Height: 5 ft 6 in Weight: 98.9 kg Body Mass Index (BMI): 35.2 Surgical Procedure: Operation Date: 06/03/25 12:40 Proposed Procedure Side Surgeon p Cataract Extraction with IOL Implant Left Hosea Heck MD Meds Allergies and Home Medications Allergies Allergy/AdvReac Type Severity Reaction Status Date / Time No Known Allergies Allergy Verified 06/03/25 10:26 Home Medication Medication Instructions Recorded aspirin 81 mg tablet 81 mg PO DAILY 09/05/23 atorvastatin 80 mg tablet 80 mg PO DAILY 09/05/23 cholecalciferol (vitamin D3) 50 50 mcg PO DAILY 09/05/23 mcg (2,000 unit) capsule clopidogrel 75 mg tablet 75 mg PO DAILY 09/05/23 escitalopram oxalate 20 mg tablet 20 mg PO DAILY 09/05/23 metformin 1,000 mg tablet 1,000 mg PO BID 09/05/23 diphenhydramine HCl 25 mg capsule 25 mg PO QHS PRN 09/09/23 ketoconazole 2 % topical cream 1 applic topical DAILY #120 grams 05/20/24 losartan 25 mg tablet 25 mg PO BID #180 tabs 08/20/24 glipizide 10 mg tablet 10 mg PO DAILY 09/23/24 metoprolol succinate 50 mg 50 mg PO DAILY 09/23/24 tablet,extended release 24 hr nitroglycerin 0.4 mg sublingual 0.4 mg sublingual Q5M PRN 09/23/24 tablet sacubitril 49 mg-valsartan 51 mg 1 tab PO BID 09/23/24 tablet (Entresto) furosemide 20 mg tablet (Lasix) 20 mg PO DAILY PRN 10/06/24 insulin degludec 100 unit/mL (3 15 unit subcut DAILY 10/06/24 mL) subcutaneous pen (Tresiba FlexTouch U-100 insulin) insulin lispro 100 unit/mL 10 - 15 unit subcut TID 10/06/24 subcutaneous pen dapagliflozin propanediol 5 mg 10 mg PO DAILY 03/03/25 tablet (Farxiga) spironolactone 25 mg tablet 12.5 mg PO DAILY 03/03/25 mupirocin 2 % topical ointment 1 applic topical BID 06/01/25 (Centany) omeprazole 20 mg tablet,delayed 20 mg PO DAILY 06/01/25 release Current Visit Medications: Current Medications Generic Name Dose Route Start Last Admin Trade Name Freq PRN Reason Stop Dose Admin Acetaminophen 1,000 mg 06/03/25 06:00 Acetaminophen 500 Mg Tab PO 07/03/25 05:59 Q4H PRN PRN Balanced Salt Solution 500 ml 06/03/25 06:00 Balanced Salt Soln.-Plus 500 Ml Bag OP 07/03/25 05:59 DIRECTED JANKI Miscellaneous Medication 0 ml 06/03/25 06:00 Prednisolone 1%, Moxifloxacin 0.5%, Bromfenac 0.09% 5.6ml Btl OS 07/03/25 05:59 DIRECTED JANKI Miscellaneous Medication 0 ml 06/03/25 06:00 06/03/25 10:34 Tropicam./Phenyleph. (1/2.5%) 5 Ml Btl OS 07/03/25 05:59 1 drp DIRECTED JANKI Administration Tetracaine HCl 0 ml 06/03/25 06:00 Tetracaine 0.5% 4 Ml Btl OS 07/03/25 05:59 DIRECTED JANKI PFSH Active Problems Active Problems: Problem Status Onset Code Cortical age-related cataract, left eye Acute H25.012 Nuclear age-related cataract, left eye Acute H25.12 History of right mastoidectomy Acute Z90.89 Otitis externa of right ear Acute H60.91 Folliculitis Acute L73.9 Elevated troponin I measurement Acute R79.89 ACS (acute coronary syndrome) Acute I24.9 Acute non-ST elevation myocardial infarction (NSTEMI) Acute I21.4 Hypoglycemia Acute E16.2 Diabetes mellitus with peripheral angiopathy without gangrene Acute E11.51 Diabetes mellitus with autonomic neuropathy Acute E11.43 PAD (peripheral artery disease) Acute I73.9 Onychomycosis Acute B35.1 Skin-picking disorder Acute F42.4 Atypical nevus Acute D22.9 History of melanoma Acute Z85.820 ICD (implantable cardioverter-defibrillator), biventricular, in situ Acute Z95.810 Malignant melanoma Acute C43.9 Essential hypertension Acute I10 Coronary arteriosclerosis Acute I25.10 Chronic left-sided congestive heart failure Acute I50.1 Type 2 diabetes mellitus without complication Acute E11.9 Mixed anxiety and depressive disorder Acute F41.8 Neuropathy due to secondary diabetes mellitus Acute E13.40 Medical History Medical History ST elevation myocardial infarction (STEMI) 06/02/24MI x[place] [facility] [place] [facility], [place] Hx of cardiac pacemaker ICD Chronic left-sided heart failure Diabetic neuropathy Type 2 diabetes mellitus Surgical History Surgical History History of vascular surgery L lower ext vascular harvest for triple bypass CABG 06/2024. Hx of CABG 07/26/24 CABG x3 06/14/24 at [facility] with MARIALUISA exploration/clipping and removal of mediastinal mass, RH Tobacco Smoking/Tobacco Use Status: Current-Occasional Tobacco Type: cigarettes Passive smoking exposure: Yes Alcohol Alcohol Intake: never Substance Use Substance use: Occasionally Substance use type: marijuana Vital Signs and Lab Results Vital Signs Most Recent Vital Signs in EMR: Most Recent Vital Signs Temp Pulse Resp BP Pulse Ox 36.4 C L 80 18 122/69 95 06/03/25 10:15 06/03/25 10:15 06/03/25 10:15 06/03/25 10:15 06/03/25 10:15 Point of Care Results Point of Care Results: Finger Stick Blood Glucose 143 06/03/25 10:39 Imaging and Studies Imaging and Studies Study information below may be from another EMR and interpreted by another provider. Please see original notes in EMR for more complete details. EKG Summary: 10/26:Conclusion A-V dual-paced rhythm with some inhibition...atrial and/or vent inhibition No further analysis attempted due to paced rhythm Echocardiogram Summary: 05/26/25:EF 25%, normal valves. CIED in place. NYHA Class 1 Cardiac Catheterization Summary: 05/2024: 40% LM disease, High grade disease, LAD/Circumflex , Mild RCA disease post CABG. Carotid Artery Summary:: 05/2024:16-49% Both ICA's. 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:: [employer] Reason for Placement:: Ischemic cardiomyopathy Date of Last Device Interrogation:: 04/20/25 Airway Exam Known Difficult Airway: No Mallampati Class: 2 Mouth Opening: Normal (> 3cm) Thyromental Distance: Less than 3 cm Neck Range of Motion: Full ROM Neck Circumference: Normal Teeth Condition: Generalized Poor Dentition ASA Classification ASA Score: ASA 3 Emergency Case?: No NPO Status NPO Status: NPO Clears >2 hours, Solids >8 hours Anesthesia Plan Resuscitation Status: Full Code Anesthesia Technique: MAC Anesthesia Airway Planned: Natural Airway Monitors Used: Standard Monitors
[2025-06-03 11:12] VITALS: BMI 35.2
[2025-06-03] MEDS: Tetracaine 0.5% 4 ML BTL OS (11:28)
[2025-06-03] MEDS: Povidone-Iodine Ophth 30 ML BTL (11:28)
[2025-06-03] MEDS: Lidocaine 1% Pres-Free 5 ML VIAL (11:35)
[2025-06-03] MEDS: Duovisc Viscoelastic System EACH 1 EACH (11:35)
[2025-06-03] MEDS: Phenylephrine/Lidocaine (15/10) MG/ML 1 ML VIAL (11:35)
[2025-06-03] MEDS: Trypan Blue 0.06% 0.5 ML SYR (11:36)
[2025-06-03] MEDS: Balanced Salt Soln.-PLUS 500 ML BAG OP (11:37)
[2025-06-03] MEDS: Moxifloxacin-PF 1 MG/ML VIAL (11:56)
[2025-06-03] MEDS: Prednisolone 1%, Moxifloxacin 0.5%, Bromfenac 0.09% 5.6ML BTL OS (11:57)
[2025-06-03 12:04] VITALS: BP 118/71; PULSE 80; RESP 16; TEMP 36.4; O2SAT 95
--- NOTE | 2025-06-03 12:05 | PDOC.DSDIS_ITS ---
Date of service: 06/03/25 Discharge Plan Disposition Patient Disposition: Home Discharge Details Attending Provider: Hosea Heck Primary Care Provider: Mauro Berumen Home Meds and New Rx's Prescriptions: No Action sacubitril-valsartan [Entresto] 49-51 mg tablet 1 tab PO BID glipizide 10 mg tablet 10 mg PO DAILY metoprolol succinate 50 mg tablet extended release 24 hr 50 mg PO DAILY nitroglycerin 0.4 mg tablet, sublingual 0.4 mg sublingual Q5M PRN Rx Instructions: do not exceed 3 doses per episode furosemide [Lasix] 20 mg tablet 20 mg PO DAILY PRN Rx Instructions: 10/06/24 [place] [facility] [place] 20 mg for wt gain of 2 lbs in 1 day or 5 lbs in 5 days, RH insulin degludec [Tresiba FlexTouch U-100] 100 unit/mL (3 mL) insulin pen 15 unit subcut DAILY Patient Comments: 10/06/24 [place] [facility] [place] 08/16/24 due to hypogycemia RH ketoconazole 2 % cream 1 applic topical DAILY Qty: 120 6RF Rx Instructions: Apply to toenails once daily insulin lispro 100 unit/mL insulin pen 10 - 15 unit subcut TID Patient Comments: Per pcp note 09/27/24 take 10-15 units SQ TID RH 10/06/24 spironolactone 25 mg tablet 12.5 mg PO DAILY dapagliflozin propanediol [Farxiga] 5 mg tablet 10 mg PO DAILY aspirin 81 mg tablet 81 mg PO DAILY atorvastatin 80 mg tablet 80 mg PO DAILY cholecalciferol (vitamin D3) 50 mcg (2,000 unit) capsule 50 mcg PO DAILY clopidogrel 75 mg tablet 75 mg PO DAILY escitalopram oxalate 20 mg tablet 20 mg PO DAILY metformin 1,000 mg tablet 1,000 mg PO BID diphenhydramine HCl 25 mg capsule 25 mg PO QHS PRN losartan 25 mg tablet 25 mg PO BID Qty: 180 3RF omeprazole 20 mg tablet,delayed release (DR/EC) 20 mg PO DAILY mupirocin [Centany] 2 % ointment 1 applic topical BID Discharge Instructions Stand Alone Forms: DSU Post-Op Cataract, Press Ganey (DSU) Discharge Orders Discharge Orders: Discharge Order (Routine); Ordered 06/03/25 Ordered By: Hosea Heck DS: Diagnosis Discharge Diagnosis (1) Cortical age-related cataract, left eye: Status: Resolved (2) Nuclear age-related cataract, left eye: Status: Resolved
--- NOTE | 2025-06-03 12:05 | W.PM.OP ---
Operative Note Operative Note PRE-OP DIAGNOSIS: Nuclear/cortical cataract, left eye Poorly dilating pupil, left eye POST-OP DIAGNOSIS: same PROCEDURE: Cataract extraction using phacoemulsification with intraocular lens implant, left eye Pupillary dilation and iris stabilization with pupillary expansion device SURGEON: Hosea Heck ANESTHESIA TYPE: Local By Surgeon and MAC Refer to Anesthesia Record PATHOLOGY: none sent COMPLICATIONS: None Patient was transported to: same day Patient's condition: stable Implants: Pradeep Clareon [id number] Indications: Progressive decreased vision due to cataract, left eye Poorly dilating pupil, left eye Findings: Intraoperative floppy iris syndrome Procedure Description: CATARACT SURGERY OPERATIVE REPORT PREOPERATIVE DIAGNOSIS: Nuclear/cortical cataract, left eye Poorly dilating pupil, left eye POSTOPERATIVE DIAGNOSIS: Same OPERATION: Cataract extraction using phacoemulsification with posterior chamber intraocular lens implant, left eye. Pupillary dilation and iris stabilization with pupil expansion device IOL: IOL Work Ticket Distributor/Model: Pradeep Clareon [id number] IOL Power: + 13.0 diopters IOL Serial Number: [id number] Optic Diameter: 6.0mm Haptic/Overall Diameter: 13.0mm PHACO INFO: Pradeep [employer] Managementurion Vision System with OZil and Active Fluidics Cumulative Dispersed Energy (CDE): 3.38 seconds SURGEON: Hosea Heck MD, RADHA ANESTHESIA: Monitored Anesthesia Care (MAC), with local sub-tenon's anesthetic infiltration COMPLICATIONS: None SPECIMENS: None INDICATIONS FOR PROCEDURE: The patient is a 70-year-old male with history of diminished visual acuity in his left eye secondary to the development of significant nuclear/cortical cataract. He is significantly symptomatic that he desires cataract surgery and attempt to improve and maximize his vision. He also has very light-colored iris with poor pupillary dilation the option of cataract surgery was offered to the patient and he wished to proceed. See office notes for detailed information. PROCEDURE: The correct surgical eye was identified and marked as the left eye and the pupil was dilated in the preoperative area using mydriatics and cycloplegics. The dilated pupil size was 4.0 mm. The patient elected to proceed without oral sedation. The patient was brought to the operating room where cardiopulmonary monitoring was instituted and surgical time-out was performed, confirming the correct operative eye and IOL power. Topical anesthesia was administered and ophthalmic povidone-iodine 5% was instilled into the conjunctival fornices. The clarence-ocular area was prepped with Betadine 10% solution and draped in the usual sterile fashion for intraocular surgery, including an aperture drape. A Tegaderm transparent film dressing was cut in half and used to cover the lashes and lid margins. Care was taken to sequester the lashes and lid margins under the Tegaderm dressing. A lid speculum was placed between the lids of the operative eye and the Pradeep LuxOR Revalia operating microscope was maneuvered into position. Raymundo scissors were then used to make a conjunctival buttonhole approximately 6mm posterior to the limbus in the inferonasal quadrant. Blunt dissection was carried out to expose bare sclera, and a blunt-tipped sub-tenon’s anesthesia cannula was introduced and passed posteriorly along the globe where non-preserved plain lidocaine was injected into posterior sub-Tenon’s space. A sideport knife was used to make a paracentesis port. An air bubble was injected into the eye followed by VisionBlue which was painted over the anterior lens capsule and allowed to sit for 30 seconds. Intraocular phenylephrine/lidocaine was injected into the anterior chamber. The anterior chamber was then filled with viscoelastic. A keratome knife was used construct a two-plane clear corneal tunnel extending 2.0mm into clear cornea. A 6.25 mm pupillary expansion device was inserted into the pupillary space and engaged with the Kuglen hook. A flap was raised on the anterior capsule and capsulorhexis forceps were used to complete a continuous curvilinear capsulorhexis of 5.0 mm. The eye had to be fixated with forceps during all intraocular maneuvers, as the patient had constant, wild, uncontrolled eye movements, and could not fixate on the microscope light. Balanced salt solution was then used to perform cortical cleaving hydrodissection and nuclear hydrodelineation until the lens could be freely rotated within the capsular bag. The lens nucleus was then disassembled and removed within the capsular bag and iris plane using phacoemulsification. Residual cortical material was removed using the irrigation/aspiration handpiece. The posterior capsule was carefully polished to remove as much residual lens epithelial cells as safely possible. The capsular bag was then inflated and the anterior chamber deepened with viscoelastic. The lens implant described above was inserted into the capsular bag using the Pradeep Autonome Injector. A Kuglen hook was used to dial the IOL into position. The pupil expansion device was removed in reverse order of its insertion. Residual viscoelastic was then removed first from posterior to the IOL, then from the anterior chamber using the I/A handpiece. The lens implant was noted to center nicely within the capsular bag. The incisions were stromally hydrated, and the anterior chamber was reformed using BSS. Then 0.5cc of moxifloxacin 1.0mg/ml were injected into the capsular bag and anterior chamber. The incisions were checked with a Weck spear and found to be secure. Several drops of ophthalmic povidone-iodine 5% were then applied to the eye followed by two drops of combination steroid/NSAID/antibiotic solution. The drapes were removed and a clear plastic protective eye shield was placed over the eye. The patient was then returned to Same Day Surgery in stable condition. Date of Procedure: 06/03/25
--- NOTE | 2025-06-03 12:19 | W.ANESPOSTOP ---
Postoperative Evaluation Date, Time and Location Date Performed: 06/03/25 Time Performed: 12:19 Patient Location: Day Surgery Unit Vital Signs Most Recent Imported Vital Signs: Most Recent Vital Signs Temp Pulse Resp BP Pulse Ox 36.4 C L 80 16 118/71 95 06/03/25 12:04 06/03/25 12:04 06/03/25 12:04 06/03/25 12:04 06/03/25 12:04 Pain Score Most Recent Pain Score: Most Recent Pain Score Pain Level 0 06/03/25 12:04 Assessment Mental Status: Awake (Alert & Oriented to Patient Baseline) Airway and Respiratory Function: Patent airway with normal (patient baseline) respiratory exam Cardiovascular Function: Hemodynamically Stable Hydration Status: Adequately Hydrated Nausea & Vomiting: No Nausea or Vomiting Pain: Pt. Denies Any Pain Peripheral Nerve Block: Patient did not receive a nerve block
== END 2025-06-03 12:28 | disposition home or self-care (01) ==
LOC: SUR 09:50
PROVIDERS: PCP Family Medicine; Visit Provider Ophthalmology
PROC: (CPT 66982; principal; 2025-06-03 12:30)
DX: H25.012 Cortical age-related cataract, left eye (principal); H25.12 Age-related nuclear cataract, left eye; E11.9 Type 2 diabetes mellitus without complications
CPT/HCPCS: 66982; 00123; V2632; J2003

== ENCOUNTER → 2025-06-14 00:23 | Outpatient (CLI) | payer MEDICARE, SELFPAY ==
--- NOTE | 2025-06-14 | DI.US_ITS ---
Exam(s) US AAA SCREENING EXAM: US AAA SCREENING CLINICAL HISTORY: FORMER SMOKER, Z87.891, SCREENING AAA COMPARISON: No exams were available for comparison FINDINGS: There is no evidence of abdominal aortic aneurysm. Maximum diameter of the aorta is 2.6 cm proximally and there is normal distal tapering of the aorta demonstrated. The visualized common iliac arteries exhibit normal diameters. IMPRESSION: No evidence of abdominal aortic aneurysm. DATA REPOSITORY:
== END ==
LOC: DI 00:23
PROVIDERS: PCP Family Medicine; Visit Provider Family Medicine
DX: Z13.6 Encounter for screening for cardiovascular disorders (principal); Z87.891 Personal history of nicotine dependence
CPT/HCPCS: 76706

== ENCOUNTER 2025-06-17 09:52 | Day surgery (SDC) | payer MEDICARE, SELFPAY ==
[2025-06-15 12:12] VITALS: BP 122/81; PULSE 80; RESP 16; TEMP 36.4; O2SAT 98
[2025-06-17 10:22] VITALS: BP 117/75; PULSE 80; RESP 16; TEMP 36.1; O2SAT 98
[2025-06-17] MEDS: Tropicam./Phenyleph. (1/2.5%) 5 ML BTL OD ×3 (10:28→10:43)
--- NOTE | 2025-06-17 10:59 | ANES.PREOP_ITS ---
General Info Date of Service Date Performed: 06/17/25 Height: 5 ft 6 in Weight: 100.8 kg Body Mass Index (BMI): 35.9 Surgical Procedure: Operation Date: 06/17/25 12:40 Proposed Procedure Side Surgeon p Cataract Extraction with IOL Implant Right Hosea Heck MD Meds Allergies and Home Medications Allergies Allergy/AdvReac Type Severity Reaction Status Date / Time No Known Allergies Allergy Verified 06/17/25 10:12 Home Medication Medication Instructions Recorded aspirin 81 mg tablet 81 mg PO DAILY 09/05/23 atorvastatin 80 mg tablet 80 mg PO DAILY 09/05/23 cholecalciferol (vitamin D3) 50 50 mcg PO DAILY mcg (2,000 unit) capsule clopidogrel 75 mg tablet 75 mg PO DAILY 09/05/23 escitalopram oxalate 20 mg tablet 20 mg PO DAILY 09/05 metformin 1,000 mg tablet 1,000 mg PO BID 09/05/23 diphenhydramine HCl 25 mg capsule 25 mg PO QHS PRN 01/25 ketoconazole 2 % topical cream 1 applic topical DAILY #120 grams 05/20/24 Held on 06/17/25. Instructions: no longer taking losartan 25 mg tablet 25 mg PO BID #180 tabs 08/20 glipizide 10 mg tablet 10 mg PO DAILY 09/23/24 metoprolol succinate 50 mg 50 mg PO DAILY 09/23/24 tablet,extended release 24 hr nitroglycerin 0.4 mg sublingual 0.4 mg sublingual Q5M PRN 09/23/24 tablet sacubitril 49 mg-valsartan 51 mg 1 tab PO BID 09/23/24 tablet (Entresto) furosemide 20 mg tablet (Lasix) 20 mg PO DAILY PRN 12/26 Held on 06/17/25. Instructions: no longer taking insulin degludec 100 unit/mL (3 15 unit subcut DAILY 0 10/06/24 mL) subcutaneous pen (Tresiba FlexTouch U-100 insulin) insulin lispro 100 unit/mL 10 - 15 unit subcut TID 12/26 subcutaneous pen dapagliflozin propanediol 5 mg 10 mg PO DAILY 03/03/25 tablet (Farxiga) spironolactone 25 mg tablet 12.5 mg PO DAILY 03/03/25 mupirocin 2 % topical ointment 1 applic topical BID (Centany) Held on 06/17/25. Instructions: no longer taking omeprazole 20 mg tablet,delayed 20 mg PO DAILY 5 release Current Visit Medications: Current Medications Generic Name Dose Route Start Last Admin Trade Name Freq PRN Reason Stop Dose Admin Acetaminophen 1,000 mg 06/17/25 06:00 Acetaminophen 500 Mg Tab PO 07/17/25 05:59 Q4H PRN PRN Balanced Salt Solution 500 ml 06/17/25 06:00 Balanced Salt Soln.-Plus 500 Ml Bag OP 07/17/25 05:59 DIRECTED [facility] Miscellaneous Medication 0 ml 06/17/25 06:00 Prednisolone 1%, Moxifloxacin 0.5%, Bromfenac 0.09% 5.6ml Btl OD 07/17/25 05:59 DIRECTED [facility] Miscellaneous Medication 0 ml 06/17/25 06:00 06/17/25 10:43 Tropicam./Phenyleph. (1/2.5%) 5 Ml Btl OD 07/17/25 05:59 1 drp DIRECTED JANKI Administration Tetracaine HCl 0 ml 06/17/25 06:00 Tetracaine 0.5% 4 Ml Btl OD 07/17/25 05:59 DIRECTED [facility]ANK[facility] PFSH Active Problems Active Problems: Problem Status Onset Code Cortical age-related cataract, right eye Acute H25.011 Nuclear age-related cataract, right eye Acute H25.11 Cortical age-related cataract, left eye Resolved H25.012 Nuclear age-related cataract, left eye Resolved H25.12 History of right mastoidectomy Acute Z90.89 Otitis externa of right ear Acute H60.91 Folliculitis Acute L73.9 Elevated troponin I measurement Acute R79.89 ACS (acute coronary syndrome) Acute I24.9 Acute non-ST elevation myocardial infarction (NSTEMI) Acute I21.4 Hypoglycemia Acute E16.2 Diabetes mellitus with peripheral angiopathy without gangrene Acute E11.51 Diabetes mellitus with autonomic neuropathy Acute E11.43 PAD (peripheral artery disease) Acute I73.9 Onychomycosis Acute B35.1 Skin-picking disorder Acute F42.4 Atypical nevus Acute D22.9 History of melanoma Acute Z85.820 ICD (implantable cardioverter-defibrillator), biventricular, in situ Acute Z95.810 Malignant melanoma Acute C43.9 Essential hypertension Acute I10 Coronary arteriosclerosis Acute I25.10 Chronic left-sided congestive heart failure Acute I50.1 Type 2 diabetes mellitus without complication Acute E11.9 Mixed anxiety and depressive disorder Acute F41.8 Neuropathy due to secondary diabetes mellitus Acute E13.40 Medical History Medical History ST elevation myocardial infarction (STEMI) [place]/02/[place] [facility] [place] [facility] Hx of cardiac pacemaker ICD Chronic left-sided heart failure Diabetic neuropathy Type 2 diabetes mellitus Surgical History Surgical History History of vascular surgery L lower ext vascular harvest for triple bypass CABG 06/2024. Hx of CABG 07/26/24 CABG x3 06[place]14/24 [place] [facility] [place] [facility] exploration/clipping and removal of mediastinal mass, RH Tobacco Smoking/Tobacco Use Status: Current-Occasional Tobacco Type: cigarettes Passive smoking exposure: Yes Alcohol Alcohol Intake: never Substance Use Substance use: Never Substance use type: does not use Vital Signs and Lab Results Vital Signs Most Recent Vital Signs in EMR: Most Recent Vital Signs Temp Pulse Resp BP Pulse Ox 36.1 C L 80 16 117/75 98 06/17/25 10:22 06/17/25 10:22 06/17/25 10:22 06/17/25 10:22 06/17/25 10:22 Point of Care Results Point of Care Results: Finger Stick Blood Glucose 165 06/17/25 10:18 Imaging and Studies Imaging and Studies Study information below may be from another EMR and interpreted by another provider. Please see original notes in EMR for more complete details. EKG Summary: 10/26:Conclusion A-V dual-paced rhythm with some inhibition...atrial and/or vent inhibition No further analysis attempted due to paced rhythm Echocardiogram Summary: 05/26/25:EF 25%, normal valves. CIED in place. NYHA Class 1 Cardiac Catheterization Summary: 05/2024: 40% LM disease, High grade disease, LAD/Circumflex , Mild RCA disease post CABG. Carotid Artery Summary:: 05/2024:16-49% Both ICA's. Anesthesia Assessment and Plan Anesthesia History Personal History: No History of Anesthesia Complications Family History: No Family History of Anesthesia Complications Exercise Tolerance Exercise Tolerance: Metabolic Equivalents<4 Cardiac & Pulmonary Exam Cardiac Exam: Normal S1/S2 Heart Sounds Pulmonary Exam: Clear Bilateral Breath Sounds Implantable Cardiac Device Does patient have a Pacemaker or an ICD?: Yes Device Shingle Bolt Cutter:: [employer] Reason for Placement:: cardiomyopathy Date of Last Device Interrogation:: 05/26/25 Airway Exam Known Difficult Airway: No Mallampati Class: 2 Mouth Opening: Normal (> 3cm) Thyromental Distance: Less than 3 cm Neck Range of Motion: Full ROM Neck Circumference: Normal Teeth Condition: Generalized Poor Dentition ASA Classification ASA Score: ASA 3 Emergency Case?: No NPO Status NPO Status: NPO Clears >2 hours, Solids >8 hours Anesthesia Plan Resuscitation Status: Full Code Anesthesia Technique: MAC Anesthesia Airway Planned: Natural Airway Monitors Used: Standard Monitors
[2025-06-17 11:21] VITALS: BMI 35.9
[2025-06-17] MEDS: Duovisc Viscoelastic System EACH 1 EACH (11:48)
[2025-06-17] MEDS: Lidocaine 1% Pres-Free 5 ML VIAL (11:48)
[2025-06-17] MEDS: Moxifloxacin-PF 1 MG/ML VIAL (11:49)
[2025-06-17] MEDS: Phenylephrine/Lidocaine (15/10) MG/ML 1 ML VIAL (11:49)
[2025-06-17] MEDS: Balanced Salt Soln.-PLUS 500 ML BAG OP (11:50)
[2025-06-17] MEDS: Trypan Blue 0.06% 0.5 ML SYR (11:50)
[2025-06-17] MEDS: Povidone-Iodine Ophth 30 ML BTL (11:50)
[2025-06-17] MEDS: Tetracaine 0.5% 4 ML BTL OD (11:51)
[2025-06-17] MEDS: Prednisolone 1%, Moxifloxacin 0.5%, Bromfenac 0.09% 5.6ML BTL OD (11:51)
--- NOTE | 2025-06-17 12:12 | W.PM.DSUDISC ---
Date of service: 06/17/25 Discharge Plan Disposition Patient Disposition: Home Discharge Details Attending Provider: Hosea Heck Primary Care Provider: Mauro Berumen Home Meds and New Rx's Prescriptions: No Action sacubitril-valsartan [Entresto] 49-51 mg tablet 1 tab PO BID glipizide 10 mg tablet 10 mg PO DAILY metoprolol succinate 50 mg tablet extended release 24 hr 50 mg PO DAILY nitroglycerin 0.4 mg tablet, sublingual 0.4 mg sublingual Q5M PRN Rx Instructions: do not exceed 3 doses per episode furosemide [Lasix] 20 mg tablet 20 mg PO DAILY PRN Rx Instructions: 10/06/24 [place] [facility] [place] 20 mg for wt gain of 2 lbs in 1 day or 5 lbs in 5 days, RH insulin degludec [Tresiba FlexTouch U-100] 100 unit/mL (3 mL) insulin pen 15 unit subcut DAILY Patient Comments: 10/06/24 [place] [facility] [place]16[place]24 due to hypogycemia RH ketoconazole 2 % cream 1 applic topical DAILY Qty: 120 6RF Rx Instructions: Apply to toenails once daily insulin lispro 100 unit/mL insulin pen 10 - 15 unit subcut TID Patient Comments: Per pcp note 09/27/24 take 10-15 units SQ TID RH 10/06/24 spironolactone 25 mg tablet 12.5 mg PO DAILY dapagliflozin propanediol [Farxiga] 5 mg tablet 10 mg PO DAILY aspirin 81 mg tablet 81 mg PO DAILY atorvastatin 80 mg tablet 80 mg PO DAILY cholecalciferol (vitamin D3) 50 mcg (2,000 unit) capsule 50 mcg PO DAILY clopidogrel 75 mg tablet 75 mg PO DAILY escitalopram oxalate 20 mg tablet 20 mg PO DAILY metformin 1,000 mg tablet 1,000 mg PO BID diphenhydramine HCl 25 mg capsule 25 mg PO QHS PRN losartan 25 mg tablet 25 mg PO BID Qty: 180 3RF omeprazole 20 mg tablet,delayed release (DR/EC) 20 mg PO DAILY mupirocin [Centany] 2 % ointment 1 applic topical BID Discharge Instructions Stand Alone Forms: DSU Post-Op Cataract, Press Ganey (DSU), Portal Information Discharge Orders Discharge Orders: Discharge Order (Routine); Ordered 06/17/25 Ordered By: Hosea Heck DS: Diagnosis Discharge Diagnosis (1) Cortical age-related cataract, right eye: Status: Resolved (2) Nuclear age-related cataract, right eye: Status: Resolved
--- NOTE | 2025-06-17 12:13 | W.PM.OP ---
Operative Note Operative Note PRE-OP DIAGNOSIS: Nuclear/cortical cataract, right eye Poorly dilating pupil, right eye POST-OP DIAGNOSIS: same PROCEDURE: Cataract extraction using phacoemulsification with intraocular lens implant, right eye Pupillary dilation and iris stabilization with pupillary expansion device SURGEON: Hosea Heck ANESTHESIA TYPE: Local By Surgeon and MAC Refer to Anesthesia Record ESTIMATED BLOOD LOSS: 0 PATHOLOGY: none sent COMPLICATIONS: None Patient was transported to: same day Patient's condition: stable Implants: Pradeep Clareon [id number] Indications: Progressive decreased vision due to cataract, right eye Poorly dilating pupil Procedure Description: CATARACT SURGERY OPERATIVE REPORT PREOPERATIVE DIAGNOSIS: Nuclear/cortical cataract, right eye Poorly dilating pupil, right eye POSTOPERATIVE DIAGNOSIS: Same OPERATION: Cataract extraction using phacoemulsification with posterior chamber intraocular lens implant, right eye. Pupillary dilation and iris stabilization with pupillary expansion device IOL: IOL Talent Acquisition Administrator/Model: Pradeep Clareon [id number] IOL Power: + 12.5 diopters IOL Serial Number: [id number] Optic Diameter: 6.0mm Haptic/Overall Diameter: 13.0mm PHACO INFO: Pradeep ACS Globalurion Vision System with OZil and Active Fluidics Cumulative Dispersed Energy (CDE): 3.80 seconds SURGEON: Hosea Heck MD, RADHA ANESTHESIA: Monitored Anesthesia Care (MAC), with local sub-tenon's anesthetic infiltration COMPLICATIONS: None SPECIMENS: None INDICATIONS FOR PROCEDURE: The patient is a 70-year-old male with history of diminished visual acuity in both eyes secondary to the development of bilateral nuclear/cortical cataract. He has already undergone cataract surgery in the left eye and is doing well postoperatively. He now presents for cataract surgery in the right eye. He has a rather dense cortical cataract and a poorly dilating pupil. See office notes for detailed information. PROCEDURE: The correct surgical eye was identified and marked as the right eye and the pupil was dilated in the preoperative area using mydriatics and cycloplegics. The dilated pupil size was 4.0 mm.The patient elected to proceed without oral sedation. The patient was brought to the operating room where cardiopulmonary monitoring was instituted and surgical time-out was performed, confirming the correct operative eye and IOL power. Topical anesthesia was administered and ophthalmic povidone-iodine 5% was instilled into the conjunctival fornices. The clarence-ocular area was prepped with Betadine 10% solution and draped in the usual sterile fashion for intraocular surgery, including an aperture drape. A Tegaderm transparent film dressing was cut in half and used to cover the lashes and lid margins. Care was taken to sequester the lashes and lid margins under the Tegaderm dressing. A lid speculum was placed between the lids of the operative eye and the Pradeep LuxOR Revalia operating microscope was maneuvered into position. Raymundo scissors were then used to make a conjunctival buttonhole approximately 6mm posterior to the limbus in the inferonasal quadrant. Blunt dissection was carried out to expose bare sclera, and a blunt-tipped sub-tenon’s anesthesia cannula was introduced and passed posteriorly along the globe where non-preserved plain lidocaine was injected into posterior sub-Tenon’s space. A sideport knife was used to make a paracentesis port. VisionBlue was injected into the anterior chamber and allowed to sit for 30 seconds. The patient exhibit constant large amplitude erratic eye movements, he could not fixate on the microscope light for more than 0.5 seconds. The eye had to be fixated with a second instrument for all intraocular maneuvers, and was extremely challenging Intraocular phenylephrine/lidocaine was injected into the anterior chamber. The anterior chamber was then filled with viscoelastic. A keratome knife was used to construct a two--plane clear corneal tunnel extending 2.0mm into clear cornea. A 6.25mm Malyugin ring was inserted into the pupillary space and engaged with the Kuglen hook. A flap was raised on the anterior capsule and capsulorhexis forceps were used to complete a continuous curvilinear capsulorhexis of 5.0 mm. Capsulorhexis was somewhat irregular due to the constant eye movement. Balanced salt solution was then used to perform cortical cleaving hydrodissection and nuclear hydrodelineation until the lens could be freely rotated within the capsular bag. The lens nucleus was then disassembled and removed within the capsular bag and iris plane using phacoemulsification. Residual cortical material was removed using the I/A handpiece. The posterior capsule was carefully polished to remove as much residual lens epithelial cells as safely possible. The capsular bag was then inflated and the anterior chamber deepened with cohesive viscoelastic. The lens implant described above was inserted into the capsular bag using the Pradeep Autonome Injector. A Kuglen hook was used to dial the IOL into position. The pupil expansion device was removed in the reverse order of its insertion. Residual viscoelastic was then removed first from posterior to the IOL, then from the anterior chamber using the I/A handpiece. The lens implant was noted to center nicely within the capsular bag. The incisions were stromally hydrated, and the anterior chamber was reformed using BSS. Then 0.5cc of moxifloxacin 1.0mg/ml were injected into the capsular bag and anterior chamber. The incisions were checked with a Weck spear and found to be secure. Several drops of ophthalmic povidone-iodine 5% were then applied to the eye followed by two drops of combination steroid/NSAID/antibiotic solution. The drapes were removed and a clear plastic protective eye shield was placed over the eye. The patient was then returned to Same Day Surgery in stable condition. Date of Procedure: 06/17/25
--- NOTE | 2025-06-17 12:58 | W.ANESPOSTOP ---
Postoperative Evaluation Date, Time and Location Date Performed: 06/17/25 Time Performed: 12:12 Patient Location: Day Surgery Unit Vital Signs Most Recent Imported Vital Signs: Most Recent Vital Signs Temp Pulse Resp BP Pulse Ox 36.1 C L 80 16 117/75 98 06/17/25 10:22 06/17/25 10:22 06/17/25 10:22 06/17/25 10:22 06/17/25 10:22 Most Recent Manually Entered Vital Signs: Adult Blood Pressure: 122/81 Heart Rate: 80 Respirations: 16 Oxygen Saturation (%): 98 Temperature (C): 36.4 C Pain Score (0-10 Scale): 0 Pain Score Most Recent Pain Score: Most Recent Pain Score Pain Level 0 06/15/25 12:12 Assessment Mental Status: Awake (Alert & Oriented to Patient Baseline) Airway and Respiratory Function: Patent airway with normal (patient baseline) respiratory exam Cardiovascular Function: Hemodynamically Stable Hydration Status: Adequately Hydrated Nausea & Vomiting: No Nausea or Vomiting Pain: Pt. Denies Any Pain Peripheral Nerve Block: Patient did not receive a nerve block
[2025-06-17 13:01] VITALS: BP 122/81; PULSE 80; RESP 16; TEMPC 36.4; O2SAT 98
== END 2025-06-17 12:00 | disposition home or self-care (01) ==
LOC: SUR 09:53
PROVIDERS: PCP Family Medicine; Visit Provider Ophthalmology
PROC: (CPT 66982; principal; 2025-06-17 12:30)
DX: H25.011 Cortical age-related cataract, right eye (principal); H25.11 Age-related nuclear cataract, right eye; Z98.42 Cataract extraction status, left eye; E11.9 Type 2 diabetes mellitus without complications
CPT/HCPCS: 66982; 00123; V2632; J2003

== ENCOUNTER → 2025-07-19 13:22 | Outpatient (BNVA) | payer MEDICARE, SELFPAY | PROVIDERS: PCP Family Medicine; Referring Provider Family Medicine; Visit Provider Podiatrist | DX: B35.1 Tinea unguium (principal); E11.51 Type 2 diabetes mellitus with diabetic peripheral angiopathy without gangrene; R60.0 Localized edema; L65.9 Nonscarring hair loss, unspecified; R23.4 Changes in skin texture; L60.2 Onychogryphosis; L60.8 Other nail disorders; L85.8 Other specified epidermal thickening; R23.8 Other skin changes | CPT/HCPCS: 11056; 11721 ==